=== PATIENT | female | born 1955 | race Caucasian/White ===

== ENCOUNTER 2017-07-29 15:06 | Emergency (ER) | payer MEDICARE, OTHER ==
[~2017-07-29] VITALS: Ht 170.2 cm; Wt 72.6 kg
[~2017-07-29 15:06] MED LIST: ABILIFY5 MG; ADVAIR HFA 230-12 GM INH; AGGRENOX 25 MG-21 EA PO; ASPIR 8181 MG PO; ASPIRIN EC81 MG PO; ASPIRIN325 MG PO; ATENOLOL25 MG PO; ATENOLOL50 MG PO; ATORVASTATIN CA10 MG PO; AUGMENTIN 875-1 EACH PO; BUSPIRONE HCL15 MG PO; CALCITRATE200 MG PO; DEPAKOTE500 MG PO; DEXILANT60 MG PO; DIAZEPAM5 MG PO; DICLOFENAC SODI50 MG PO; DIVALPROEX SOD250 M1 PO; DIVALPROEX SOD500 M1 PO; FISH OIL DR 1,1 EAC1 PO; FISH OIL300 MG PO; GABAPENTIN300 MG PO; GENTAMICIN SUL3.5 GM OS; HYDROCHLOROTHIA25 MG PO; HYDROCODON-ACE1 EA10 PO; IMDUR30 MG PO; LASIX40 MG PO; LATUDA80 MG PO; LEVOTHYROXINE112 MCG; LISINOPRIL10 MG PO; LOPERAMIDE2 MG PO; MELATONIN1 MG PO; MELATONIN5 M2 PO; METFORMIN HCL1000 MG PO; METFORMIN HCL500 M1 PO; METFORMIN HCL500 MG PO; METHOCARBAMOL750 MG PO; MULTIPLE VITAM1 EAC1 PO; NITROFURANTOIN100 M1 PO; NITROGLYCERIN0.4 MG SL; OLANZAPINE10 MG PO; OMEPRAZOLE20 MG PO; OMEPRAZOLE40 MG PO; ONE TOUCH DELI1 EAC1 MISC; OXYCODONE-ACET1 EAC3 PO; PAPAYA ENZYME1 EACH PO; PAROXETINE HCL20 MG PO; POTASSIUM CHLO10 MEQ PO; PREMARIN0.3 MG PO; PROAIR HFA8.5 GM INH; PROGESTERONE200 MG PO; QUETIAPINE FUMA25 MG PO; SAPHRIS10 MG SL; SYNTHROID125 MCG PO; VITAMIN B COMP1 EACH PO; VITAMIN B12-FO1 EACH PO; VITAMIN D250000 UNIT PO; VITAMIN E400 UNI1 PO
[2017-07-29] MEDS ORDERED: FLAGYL500 MG PO (15:16)
== END 2017-07-29 18:24 | disposition home or self-care (01) ==
LOC: ED 15:06
DX: F20.9 Schizophrenia, unspecified (principal); E11.9 Type 2 diabetes mellitus without complications; I10 Essential (primary) hypertension; K21.9 Gastro-esophageal reflux disease without esophagitis; Z79.899 Other long term (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; Z79.84 Long term (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 of 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; Z79.890 Hormone replacement therapy
CPT/HCPCS: 80053; 80176; 81001; 84443; 85025; 99283; G0480

== ENCOUNTER 2019-01-30 16:56 | Emergency (ER) | payer MEDICARE ==
[~2019-01-30] VITALS: Ht 167.6 cm; Wt 99.8 kg
--- OUTSIDE RECORDS SUMMARY | ~2019-01-30 | XMS | Clinical Summary ---
Demographics + + + | Address | [address] | | | [place] [address] | + + + | Home Phone [...] + + + | Author | [facility] [employer] [facility] | + + + | Organization | [facility] [employer] | + + + | Address | Unknown | + + + | Phone | Unavailable | + + + Support + + +---------+ + | Name | Relationship | Address | Phone | + + +---------+ + | Araceli Sibley | ECON | Unknown | | + + +---------+ + Care Team Providers + +------+ + | Care Sweet Pickle Maker Name | Role | Phone | + +------+ + | Mallorie Shaffer PA-C | PP | | + +------+ + Allergies Not on File Current Medications Not on file Active Problems Not [...] on file | | + + + Plan of Treatment +--------+---------+ + + + | Date | Type | Specialty | Care Team | Description | +--------+---------+ + + + | 02/22/ | Office | | Desiree Peterson DO | | | 2019 | Visit | | [address] | | | | | | [place] | | | | | | [address] | | | | | | | | +--------+---------+ + + + Results Not on filefrom Last 3 Months Insurance + +--------+ +------+-------+ + | Payer | Benefi | Subscriber | Type | Phone | Address | | | t Plan | ID | | | | | | / | | | | | | | Group | | | | | + +--------+ +------+-------+ + | MEDICARE | MEDICA | [id number] | | | [address] | | | RE | | | | [place] [address] | | | IP-OP | | | [...] Self | [birth year] | Home: | [address] | | | al/Fam | | 1955 | [phone] | [address] [place] | | | devonte | | | [phone] | + +--------+ +--------+ + +"
--- OUTSIDE RECORDS SUMMARY | ~2019-01-30 | XMS | Clinical Summary ---
Demographics + + + | Address | [address] | | | [place] [address] | + + + | Home Phone [...] Author | [facility] [place] | | | and [place] | [...] | Araceli Sibley | ECON | [address] | | | | | [place] | | | | | [address] | | + + + + + Care Team Providers + +------+ + | Care Electrical And Radio Aircraft Mechanic Name | Role | Phone | [...] | | Activ | | (VITAMIN D-3) 38939 | mouth Once a week. | | [...] tablet by | 90 | 3 | / | | Activ | | (GLUCOPHAGE-XR) 500 | mouth daily (with | tablet | | 20 | | e | | mg 24 hr | breakfast). | | | 15 | | | | tabletIndications: | | | | | | | | Type 2 diabetes | | | | | | | | mellitus, controlled | | | | | | | | (HCC) | | | | | | | + + + +---------+------+------+-------+ | [place]-3 Fatty | Take 1,000 mg by | 60 each | 5 | 02/21 | | Activ | | Acids (FISH [...] Thyroid disease | | + + + Family History + + [...] | 125.7 kg (277 lb 1.6 | 04/30/20151118 PDT | | | oz) | | [...] | MEDTRONIC - | | 04/02/ | [id number] | | 5ccImplanted: Qty: 1 on | | Spine | MEDT | | 2019 | | | 07/02/2014 by Frandy Teresa | | Lumbar | | | | /[id number] | | Ronak DO | | | | | | 6-020 | | | | | | | | / | + +------+--------+ +--------+--------+--------+ | Graft Infuse Bone Kit Xxs - | | N/A: | SOFAMOR | | 01/21/ | [id number] | | [id number]: Qty: 1 on | | Spine | DANEK - DIV | | 2015 | 0 / | | 07/02/2014 by Frandy Teresa | | Lumbar | MEDTRONIC | | | /[id number] | | A DO | | | - SFDK | | | [id number] | + +------+--------+ +--------+--------+--------+ | Imp Spn Spcr Cpstn 8x26mm - | | N/A: | SOFAMOR | | 01/11/ | [id number] | | [id number]: Qty: 1 on | | Spine | DANEK - DIV | | 2 | 6 / | | 07/02/2014 by Frandy Teresa | | Lumbar | MEDTRONIC | | | /[id number] | | A, DO | | | - SFDK | | | 928 | + +------+--------+ +--------+--------+--------+ | Set Scrw Ns G5 Brk Off Ti | | N/A: | SOFAMOR | | | [id number] | | 4.75 - [id number]: | | Spine | DANEK - DIV | | | 0 / / | | Qty: 4 on 07/02/2014 by | | Lumbar | [employer] | | | | | Frandy Teresa DO | | | - SFDK | | | | + +------+--------+ +--------+--------+--------+ | RodImplanted: Qty: 1 on | | N/A: | | | | [id number] | | 07/02/2014 by Frandy Teresa | | Spine | | | | 540 / | | A DO | | Lumbar | | | | / | + +------+--------+ +--------+--------+--------+ | RodImplanted: Qty: 1 on | | N/A: | MEDTROL - | | | [id number] | | 07/02/2014 by Frandy Teresa | | Spine | MDTR | | | 545 / | | A, DO | | Lumbar | | | | / | + +------+--------+ +--------+--------+--------+ | Screw 7.5x50mm Sextant - | | N/A: | MEDTRONIC - | | | [id number] | | [id number]: Qty: 1 on | | Spine | MEDT | | | [id number] | | 07/02/2014 by Frandy Teresa | | Lumbar | | | | / / | | A DO | | | | | | | + +------+--------+ +--------+--------+--------+ | Cannulated ScrewImplanted: | | N/A: | MEDTROL - | | | [id number] | | Qty: 1 on 07/02/2014 by | | Spine | MDTR | | | [id number] | | Frandy Teresa DO | | Lumbar | | | | / / | + +------+--------+ +--------+--------+--------+ | Cannulated ScrewImplanted: | | N/A: | MEDTRONIC - | | | [id number] | | Qty: 1 on 07/02/2014 by | | Spine | MEDT | | | [id number] | | Frandy Teresa DO | | [...] +--------+ +---------+--------+ | MEDICARE | MEDICA | [id number] | 02/22/20 | [phone] | | Medica [...] | Self | [birth year] | | [address] | | | al/Fam | | 1955 | [phone] | [address] [place] | | | [place] | | | 8 (Home) | [phone] | + +--------+ +--------+ + + Advance Directives Patient has advance care planning documents, and code status on file. For more information, please contact:[facility] and [place] [address] + + + + + | Code Status | Date | Date | Comments | | | Activated | Inactivated | | + + + + + | Full Code | 07/02/2014 | 07/05/2014 | | | | 16:37 | 19:39 | | + + + + +
--- OUTSIDE RECORDS SUMMARY | ~2019-01-30 | XMS | Clinical Summary ---
Demographics + + + | Address | [address] | | | [place] [address] | + + + | Home Phone [...] | + + + + + | FLIP ROBIN | ECON | [phone] | | | | | [place] | | | | | [address] | | + + + + + Care Team Providers + +------+ + | Care Cognos Consultant Name | Role | Phone | + +------+ + PP | Unavailable | + +------+ + Source Comments EDWARD [facility] fully [facility] both [facility] and [facility] Allergies Not on File Current Medications Not [...] | + + + Plan of Treatment + + + + + | Health Maintenance | Due Date | Last Done | Comments | + + + + + | Influenza (Flu) | | | | | vaccination (#1) | 8 | | | + + + + + Results Not on filefrom Last 3 Months Insurance + +--------+ +--------+ + + | Payer | Benefi | Subscriber | Type | Phone | Address | | | t Plan | ID | | | | | | / | | | | | | | Group | | | | | + +--------+ +--------+ + + | MEDICARE | MEDICA | xxxxxxxxxx | Medica | [id number] | [address] | | | RE A & | | re | [phone] | [place] [address] | | | B | | | | | + +--------+ +--------+ + + + +--------+ +--------+ + + | Guarantor Name | Accoun | Relation to | Date | Phone | Billing Address | | | t Type | Patient | of | | | | | | | | | | + +--------+ +--------+ + + | BERNARDA ALARCON | Person | Self | [birth year] | Home: | [address] | | | al/Fam | | 5 | [phone] | [address] [place] | | | [place] | | | [phone] | [phone] | + +--------+ +--------+ + +"
--- OUTSIDE RECORDS SUMMARY | ~2019-01-30 | XMS | Clinical Summary ---
Demographics + + + | Address | [address] | | | [place] [address] | + + + | Home Phone | | + + + | Preferred Language | Unknown | + + + | Marital Status | Single | + + + | Faith Affiliation | Unknown | + + + [...] [place] | | | | | [address] | | + + + + + Care Team Providers + +------+ + | Care Applied Behavior Science Specialist Name | Role | Phone | + +------+ + PP | Unavailable | + +------+ + Source Comments EDWARD is fully live on both [facility] and [facility] InPatient.[facility] Allergies Not on File Current Medications [...] | MEDICA | xxxxxxxxxx | Medica | [id number] | [address] | | | RE A & | | re | [phone] | [place] [address] | | | B | | | [...] | [birth year] | Home: | [address] | | | al/Fam | | 5 | [phone] | [address] [place] | | | [place] | | | [phone] | [phone] | + +--------+ +--------+ + +"
--- OUTSIDE RECORDS SUMMARY | ~2019-01-30 | XMS | Clinical Summary ---
Demographics + + + | Address | [address] [facility] [address] [facility] [address] | | | [place] [address] | + + + | Home Phone [...] | Author | [facility] | | | and [place] | [...] [place] | | | | | [address] | | + + + + + Care Team Providers + +------+ + | Care Wind Development Director Name | Role | Phone | [...] | | Activ | | (VITAMIN D-3) 00690 | mouth Once a week. | | [...] | | + + + +---------+------+------+-------+ | [place]-3 Fatty | Take 1,000 mg by [...] | MEDTRONIC - | | 04/02/ | [id number] | | 5ccImplanted: Qty: 1 on | [...] N/A: | SOFAMOR | | 01/21/ | [id number] | | [id number]: Qty: 1 on | | Spine | [...] N/A: | SOFAMOR | | 01/11/ | [id number] | | [id number]: Qty: 1 on | | Spine | [...] | N/A: | SOFAMOR | | | [id number] | | 4.75 - [id number]: | | Spine | DANEK - DIV | | | 0 / / | | Qty: 4 on 07/02/2014 by | | Lumbar | [employer]TRONIC | | | | | Frandy Teresa DO | | | - SFDK | | | | + +------+--------+ +--------+--------+--------+ | RodImplanted: Qty: 1 on | | N/A: | | | | [id number] | | 07/02/2014 by Frandy Teresa | | Spine | | | | 540 / | | A DO | | Lumbar | | | | / | + +------+--------+ +--------+--------+--------+ | RodImplanted: Qty: 1 on | | N/A: | MEDTROL - | | | [id number] | | 07/02/2014 by Frandy Teresa | | Spine | MDTR | | | 545 / | | A, DO | | Lumbar | | | | / | + +------+--------+ +--------+--------+--------+ | Screw 7.5x50mm Sextant - | | N/A: | MEDTRONIC - | | | [id number] | | [id number]: Qty: 1 on | | Spine | MEDT | | | [id number] | | 07/02/2014 by Frandy Teresa | | Lumbar | | | | / / | | A DO | | | | | | | + +------+--------+ +--------+--------+--------+ | Cannulated ScrewImplanted: | | N/A: | MEDTROL - | | | [id number] | | Qty: 1 on 07/02/2014 by | | Spine | MDTR | | | [id number] | | Frandy Teresa DO | | Lumbar | | | | / / | + +------+--------+ +--------+--------+--------+ | Cannulated ScrewImplanted: | | N/A: | MEDTRONIC - | | | [id number] | | Qty: 1 on 07/02/2014 by | | Spine | MEDT | | | [id number] | | Frandy Teresa DO | | [...] +--------+ +---------+--------+ | MEDICARE | MEDICA | [id number] | 02/22/20 | [phone] | | Medica [...] | Self | [birth year] | | [address] | | | al/Fam | | 1955 | [phone] | [address] [place] | | | [place] | | | 8 (Home) | [address] | + +--------+ +--------+ + + Advance Directives Patient has advance care planning documents, and code status on file. For more information, please contact:[facility] and [place] [address] + + + + + | Code Status | Date | Date | Comments | | | Activated | Inactivated | | + + + + + | Full Code | 07/02/2014 | 07/05/2014 | | | | 16:37 | 19:39 | | + + + + +
--- OUTSIDE RECORDS SUMMARY | ~2019-01-30 | XMS | Clinical Summary ---
Demographics + + + | Address | [address] | | | [place] [address] | + + + | Home Phone [...] + + + | Author | [facility] [email or web address] [facility] | + + + | Organization | [facility] [email or web address] | + + + | Address | Unknown | + + + | Phone | Unavailable | + + + Support + + +---------+ + | Name | Relationship | Address | Phone | + + +---------+ + | Araceli Sibley | ECON | Unknown | | + + +---------+ + Care Team Providers + +------+ + | Care Change Advisor Name | Role | Phone | [...] [place] | | | | | | [address] | | | | | | | [...] +------+-------+ + | MEDICARE | MEDICA | [id number] | | | [address] | | | RE | | | | [place] [address] | | | IP-OP | | | [...] Self | [birth year] | Home: | [address] | | | al/Fam | | 1955 | [phone] | [address] [place] | | | [place] | | | [phone] | [phone] | + +--------+ +--------+ + +"
[~2019-01-30 16:56] MED LIST changes: +ABILIFY20 MG PO; +ABILIFY5 MG PO; +CLONIDINE HCL0.1 MG PO; +FLAGYL500 MG PO; +GLUCOPHAGE1000 MG PO; +GLUCOPHAGE500 MG PO; +MIRTAZAPINE15 MG PO; +SONATA; +SYNTHROID100 MCG PO; +VISTARIL50 MG PO; +ZALEPLON10 MG PO
--- OUTSIDE RECORDS SUMMARY | 2019-01-30 16:58 | XMS ---
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 Security Medical Transcriber Events No recent Security Events currently on file CRITERIA MET - [facility] - Has Care Guidelines - PDMP - [facility] - 2 Visits in 30 Days CARE PROVIDERS VERONICA STOO [facility] Current PHONE: Unknown [facility] Mental [facility] Provider Current PHONE: [phone] Guidelines Source: [facility] [place] Guidelines Date: 07/06/2018 Care Coordination: Currently engaged in mental health services with [facility].\T\nbsp; Please contact [facility] with mental health concerns. [phone] Care History Medical/Surgical 01/12/2019 [facility] - CHW RECEIVED ED CASE MANAGEMENT CONSULT- HELP PATIENT WITH PCP SET UP. - PATIENT HAS AN ED FOLLOW UP VISIT WITH DR WHEAT ON 01/17/19. - CHW SPOKE WITH CARMEN AT THE CLINIC -PATIENT NEEDS TO SIGN AN LORRI TO RELEASE RECORDS FROM [employer] WITH CURRENT MEDICATIONS LISTED FOR DR WHEAT TO REVIEW IN ORDER TO SET UP AN ESTABLISHING CARE APT. - A TE WAS SENT TO ESCOB[facility] AT [facility] TO HELP PATIENT WITH LORRI PROCESS AND [facility] RECORDS[facility] VISIT COUNT (12 MO.) 2 [facility] TOTAL 2 NOTE: Visits indicate total known visits. ED/UCC VISIT TRACKING (12 MO.) 01/30/2019 16:57 [facility] [place] TYPE: Emergency COMPLAINT: - CHEST PAIN 01/09/2019 12:[address] 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 - Other residential (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 - Suicidal ideations - Schizoaffective disorder, unspecified - Type 2 diabetes mellitus without complications - Allergy status to sulfonamides status - Allergy status to other drugs, medicaments and biological substances status - Major depressive disorder, single episode, unspecified - Essential (primary) hypertension - Personal history of transient ischemic attack (TIA), and cerebral infarction without residual deficits - Allergy status to narcotic agent status INPATIENT VISIT TRACKING (12 MO.) No inpatient visits to display in this time frame [email or web address]
[2019-01-30] MEDS ORDERED: DEPAKOTE ER500 MG PO (17:22)
[2019-01-30] MEDS ORDERED: PAXIL20 MG PO (17:22)
--- NOTE | 2019-02-01 07:55 | EKG ---
[facility] [address] [facility] [place] [address] Signed Normal sinus rhythm Voltage criteria for left ventricular hypertrophy Possible Lateral infarct , age undetermined Abnormal ECG When compared with ECG of 05-APR-2017 11:20, Borderline criteria for Lateral infarct are now present Confirmed by PHIL SAMAYOA MD ([id number]) on 02/01/2019 7:55:00 AM Electronically Signed By: PHIL SAMAYOA MD 02/01/19 0755 PATIENT NAME: BERNARDA ALARCON AIDE Electrocardiogram DATE OF : 55 PHYSICIAN: PHIL SAMAYOA MD REPORT #: [id number] REPORT IS CONFIDENTIAL AND NOT TO BE RELEASED WITHOUT AUTHORIZATION
== END 2019-01-30 19:35 | disposition home or self-care (01) ==
LOC: ED 16:56
DX: R07.89 Other chest pain (principal); I10 Essential (primary) hypertension; K21.9 Gastro-esophageal reflux disease without esophagitis; Z86.73 Personal history of transient ischemic attack (TIA), and cerebral infarction without residual deficits; Z88.2 Allergy status to sulfonamides; Z88.8 Allergy status to other drugs, medicaments and biological substances; Z88.1 Allergy status to other antibiotic agents; Z79.899 Other long term (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; Z79.84 Long term (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 of 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
CPT/HCPCS: 71045; 80053; 84484; 85025; 93005; 93010; 99285-25

== ENCOUNTER 2019-03-07 10:34 | Emergency (ER) | payer MEDICARE ==
[~2019-03-07] VITALS: Ht 167.6 cm; Wt 99.8 kg
--- NOTE | ~2019-03-07 | STRESS ---
[facility] [address] [address] [facility] [address] [place], [place] [address] Draft DATE OF STUDY: 03/07/2019 STUDY: Lexiscan EKG stress test. DATE OF INTERPRETATION: 03/08/2019. HISTORY: History of anemia, CVA, heart murmur, hyperlipidemia, hypothyroidism, obstructive sleep apnea, and history of TX. RESTING DATA: Resting EKG demonstrates normal sinus rhythm at 85 beats per minute and is normal. Resting blood pressure is 133/66. STRESS DATA: The patient was stressed according to Lexiscan protocol for 0.35 minutes achieving a workload of 1.00 METs. Her resting heart rate was 85 beats per minutes, which latisha to a maximum heart rate of 96 beats per minute. This value represented 61% of the patient's maximum age predicted heart rate. Her resting blood pressure was 133/66, which latisha to a maximum blood pressure 140/75. The exercise was stopped due to Lexiscan protocol. Stress EKG portion was nondiagnostic due to suboptimal heart rate. There were PVCs noted during stage 1, which resolved during recovery. IMPRESSION: 1. This is a nondiagnostic Lexiscan EKG stress. 2. The patient did report 3/10 substernal chest pain during the infusion. 3. EKG portion was nondiagnostic due to suboptimal heart rate, there was noted to be frequent PVCs during state 1 of the infusion, which resolved during recovery. 4. See separate nuclear imaging component. DO ANJU Quiroz/ROSE /[id number] PATIENT NAME: BERNARDA ALARCON Stress test DATE OF : 55 PHYSICIAN: REPORT #: [id number] REPORT IS CONFIDENTIAL AND NOT TO BE RELEASED WITHOUT AUTHORIZATION
--- OUTSIDE RECORDS SUMMARY | ~2019-03-07 | XMS | Clinical Summary ---
Demographics + + + | Address | [address] | | | [place] [address] | + + + | Home Phone | | + + + | Preferred Language | Unknown | + + + | Marital Status | Single | + + + | Buddhism Affiliation | Unknown | + + + | Race | White | + + + | Ethnic Group | Not or | + + + Author + + + | Author | [facility] | + + + | Organization | [facility] | + + + | Address | Unknown | + + + | Phone | Unavailable | + + + Support + + + + + | Name | Relationship | Address | Phone | + + + + + | Kelsy Bautista | ECON | [phone] | | | | | [place] | | | | | [address] | | + + + + + Care Team Providers + +------+ + | Care Sole Molding Machine Operator Name | Role | Phone | + +------+ + PP | Unavailable | + +------+ + Source Comments EDWARD is fully live on both [facility] Ambulatory and [facility] InPatient.[facility] Allergies Not on File Medications Not on file Active Problems Not on file Social History + +-------+ +--------+------+ | Tobacco [...] recent travel history available. | + + Plan of Treatment + + + + + | Health Maintenance | Due Date | Last Done | Comments | + + + + + | Influenza (Flu) | | | | | vaccination (Season | 9 | | | | Ended) | | | | + + + + + Results Not on filefrom Last 3 Months Insurance + +--------+ +--------+ + +--------+ | Payer | Benefi | Subscriber | Effect | Phone | Address | Type | | | t Plan | ID | chris | | | | | | / | | Dates | | | | | | Group | | | | | | + +--------+ +--------+ + +--------+ | MEDICARE | MEDICA | xxxxxxxxxx | 02/22/20 | [phone] | [address] | Medica | | | RE A & | | 15-Pre | 1 | [phone] | re | | | B | | sent | | [place] | | | | | | | | [phone] | | + +--------+ +--------+ + +--------+ + +--------+ +--------+ + + | Guarantor Name | Accoun | Relation to | Date | Phone | Billing Address | | | t Type | Patient | of | | | | | | | | | | + +--------+ +--------+ + + | CINDY ARNDT | Person | Self | [birth year] | [address] | | | al/Fam | | 1955 | [phone] | [address] [place] | | | [place] | | | 5 (Home) | [address] | + +--------+ +--------+ + +"
--- OUTSIDE RECORDS SUMMARY | ~2019-03-07 | XMS | Encounter Summary ---
Demographics + + + | Address | [address] | | | [place] [address] | + + + | Home Phone | | + + + | Preferred Language | Unknown | + + + | Marital Status | Single | + + + | Christianity Affiliation | Unknown | + + + | Race | Unknown | + + + | Ethnic Group | Unknown | + + + Author + + + | Author | [facility] [facility] | + + + | Organization | [facility] | + + + | Address | Unknown | + + + | Phone | Unavailable | + + + Support + + +---------+ + | Name | Relationship | Address | Phone | + + +---------+ + | Araceli Sibley | ECON | Unknown | | + + +---------+ + Care Team Providers + +------+ + | Care Air Conditioning Mechanic Industrial Name | Role | Phone | + +------+ + | Jose Ag MD | PCP | | + +------+ + Encounter Details +--------+ + + + + | Date | Type | Department | Care Team | Description | +--------+ + + + + | 03/07/ | Telephone | [facility] | Julia, | | | 2018 | | Arun Cayey | DMITRIY Kennedy | | | | | [address] | | | | | | [place] | | | | | | [address] | | | | | | [phone] | | | +--------+ + + + [...] on file | | + + + as of this encounter Plan of Treatment +--------+---------+ + + + | Date | Type | Specialty | Care Team | Description | +--------+---------+ + + + | 05/10/ | Office | Cardiology | Desiree Peterson DO | | | 2019 | Visit | | [address] | | | | | | [place] | | | | | | [address] | | | | | | | | +--------+---------+ + + + as of this encounter Visit Diagnoses Not on filein this encounter"
--- OUTSIDE RECORDS SUMMARY | ~2019-03-07 | XMS | Encounter Summary ---
Demographics + + + | Address | [address] | | | [place] [address] | + + + | Home Phone | | + + + | Preferred Language | Unknown | + + + | Marital Status | Single | + + + | Jainism Affiliation | Unknown | + + + | Race | Unknown | + + + | Ethnic Group | Unknown | + + + Author + + + | Author | [facility] | + + + | Organization | [facility] | + + + | Address | Unknown | + + + | Phone | Unavailable | + + + Support + + +---------+ + | Name | Relationship | Address | Phone | + + +---------+ + | Araceli Sibley | ECON | Unknown | | + + +---------+ + Care Team Providers + +------+ + | Care Stunt Driver Name | Role | Phone | + +------+ + | Jose Ag MD | PCP | | + +------+ + Reason for Visit +--------+ + | Reason | Comments | +--------+ + | Other | [facility] Stress Test - 03-05-19 | +--------+ + Encounter Details +--------+ + + + + | Date | Type | Department | Care Team | Description | +--------+ + + + + | 03/06/ | Documentati | [facility] | Ashley Chávez | Other ([facility] | | 2019 | on Only | Cardiology [facility] | TONG Abad | Stress Test - | | | | [address] | | 03-05-19 ) | | | | [place] | | | | | | [address] | | | | | | [phone] | | | +--------+ + + + [...] | | | | | [place] | | | | | | [address] | | | | | | | | +--------+---------+ + + + as of this encounter Visit Diagnoses Not on filein this encounter"
--- OUTSIDE RECORDS SUMMARY | ~2019-03-07 | XMS | Encounter Summary ---
Demographics + + + | Address | [address] | | | [place] [address] | + + + | Home Phone | | + + + | Preferred Language | Unknown | + + + | Marital Status | Single | + + + | Protestant Affiliation | Unknown | + + + | Race | Unknown | + + + | Ethnic Group | Unknown | + + + Author + + + | Author | [facility] [employer] [facility] | + + + | Organization | [facility] [employer] | + + + | Address | Unknown | + + + | Phone | Unavailable | + + + Support + + +---------+ + | Name | Relationship | Address | Phone | + + +---------+ + | Araceli Sibley | ECON | Unknown | | + + +---------+ + Care Team Providers + +------+ + | Care Steel Checker Name | Role | Phone | + +------+ + | Jose Ag MD | PCP | | + +------+ + Encounter Details +--------+ + + + + | Date | Type | Department | Care Team | Description | +--------+ + + + + | 03/07/ | Telephone | [facility] Dorman | Julia, | | | 2018 | | Arun Kings | DMITRIY Kennedy | | | | | [address] | | | | | | [place] | | | | | | [address] | | | | | | [phone] | | | +--------+ + + + [...] [place] | | | | | | [address] | | | | | | | | +--------+---------+ + + + as of this encounter Visit Diagnoses Not on filein this encounter"
--- OUTSIDE RECORDS SUMMARY | ~2019-03-07 | XMS | Clinical Summary ---
Demographics + + + | Address | [address] | | | [place] [address] | + + + | Home Phone [...] | Araceli Sibley | ECON | [address] | | | | | [place] | | | | | [address] | | + + + + + Care Team Providers + +------+ + | Care Automobile Body Repair Supervisor Name | Role | Phone | + +------+ + | Adriano Patrick MD | PP | | + +------+ + Allergies + + + + + + | Active Allergy | Reactions | Severity | Noted | Comments | | | | | Date | | + + + + + + | Demerol | Nausea And Vomiting | | | | + + + + + + | Duloxetine | | | 03/31/20 | Muscle weakness, | | | | | 12 | profuse sweating | + + + + + + | Erythromycin | Nausea And Vomiting | Medium | 03/31/20 | | | | | | 12 | | + + + + + + | Fluoxetine | Other (See Comments) | Medium | | "mind racing" | + + + + + + | Haloperidol | Other (See Comments) | Medium | | "mind racing" | + + + + + + | Prochlorperazine | Other (See Comments) | Medium | | Skin | | Maleate | | | | crawling/agitation | + + + + + + | Promethazine Hcl | Other (See Comments) | Medium | | Skin | | | | | | crawling/agitation | + + + + + + | Sulfa Antibiotics | Rash | Low | | | + + + + [...] | | + + + +---------+------+------+-------+ | Melatonin 5 MG | Place 5 mg under the | | 0 | 06/0 | | Activ | | SUBL | tongue nightly. | | | 6/20 | | e | | | | | | 12 | | | + + + +---------+------+------+-------+ | fluocinonide | Apply to affected | | 0 | 06/0 | | Activ | | (LIDEX) 0.05 % | area twice daily as | | | 6/20 | | e | | ointment | needed | | | 12 | | | + + + +---------+------+------+-------+ | PARoxetine (PAXIL) | Take 20 mg by mouth | | 0 | 06/0 | | Activ | | 20 mg tablet | Daily. | | | 6/20 | | e | | | | | | 12 | | | + + + +---------+------+------+-------+ | UNCODED | Diagnosis: | 1 | 0 | 05/0 | | Activ | | MEDICATIONIndication | Obstructive Sleep | Device | | 20 | | e | | s: Obstructive sleep | ApneaICD-9: | | | 13 | | | | apnea (adult) | 327.23Length of | | | | | | | (pediatric) | Need: 99 Months | | | | | | + + + +---------+------+------+-------+ | Magnesium 250 MG | Take 2 tablets by | | 0 | | | Activ | | TABS | mouth nightly. | | | | | e | + + + +---------+------+------+-------+ | Multiple | Take 1 tablet by | | 0 | | | Activ | | Vitamins-Minerals | mouth Daily. | | | | | e | | (CENTRUM SILVER PO) | | | | | | | + + + +---------+------+------+-------+ | tocopherol | Take 400 Units by | | 0 | | | Activ | | (VITAMIN E) 400 | mouth 2 times daily. | | | | | e | | units capsule | | | | | | | + + + +---------+------+------+-------+ | | Take 1-2 tablets by | 60 | 0 | 12/0 | | Activ | | HYDROcodone-acetamin | mouth every 4 hours | tablet | | 4/20 | | e | | ophen (NORCO) 10-325 | as needed for Pain. | | | 14 | | | | mg per tablet | | | | | | | + + + +---------+------+------+-------+ | CALCIUM CITRATE PO | Take 500 mg by mouth | | 0 | | | Activ | | | Daily. | | | | | e | + + + +---------+------+------+-------+ | Cholecalciferol | Take 50,000 Units by | | 0 | | | Activ | | (VITAMIN D-3) 81626 | mouth Once a week. | | | | | e | | units CAPS | | | | | | | + + + +---------+------+------+-------+ | levothyroxine | Take 112 mcg by | | 0 | | | Activ | | (SYNTHROID, | mouth every morning | | | | | e | | LEVOTHROID) 112 mcg | (before breakfast). | | | | | | | tablet | | | | | | | + + + +---------+------+------+-------+ | OLANZapine | Take 10 mg by mouth | | 0 | | | Activ | | (ZYPREXA) 10 MG | nightly. | | | | | e | | tablet | | | | | | | + + + +---------+------+------+-------+ | lisinopril | Take 1 tablet by | 90 | 3 | 05/1 | | Activ | | (PRINIVIL, ZESTRIL) | mouth Daily. | tablet | | 7/20 | | e | | 10 mg | | | | 15 | | | | tabletIndications: | | | | | | | | Essential | | | | | | | | hypertension | | | | | | | + + + +---------+------+------+-------+ | metFORMIN | Take 1 tablet by | 90 | 3 | 05/1 | | Activ | | (GLUCOPHAGE-XR) 500 [...] | | + + + +---------+------+------+-------+ | [place]-3 Fatty | Take 1,000 mg by | 60 each | 5 | 05/1 | | Activ | | Acids (FISH OIL | mouth 2 times daily. | | | 7/20 | | e | | CONCENTRATE) 1000 MG | | | | 15 | | | | CAPS | | | | | | | + + + +---------+------+------+-------+ | Cyanocobalamin | Take by mouth. | | 0 | | | Activ | | (VITAMIN B-12 PO) | | | | | | e | + + + +---------+------+------+-------+ | divalproex | Take 250 mg by | | 0 | | | Activ | | (DEPAKOTE) 250 mg EC | mouth. | | | | | e | | tablet | | | | | | | + + + +---------+------+------+-------+ | B Complex Vitamins | Take by mouth. | | 0 | | | Activ | | (VITAMIN B COMPLEX | | | | | | e | | PO) | | | | | | | + + + +---------+------+------+-------+ | Calcium Carbonate | Take by mouth. | | 0 | | | Activ | | Antacid (TUMS E-X | | | | | | e | | 750 PO) | | | | | | | + + + +---------+------+------+-------+ | Digestive Enzymes | Take by mouth. | | 0 | | | Activ | | (PAPAYA ENZYME) CHEW | | | | | | e | + + + +---------+------+------+-------+ | atenolol | Take 25 mg by mouth | | 0 | | | Activ | | (TENORMIN) 25 mg | Daily. | | | | | e | | tablet | | | | | | | + + + +---------+------+------+-------+ | naproxen sodium | Take 220 mg by mouth | | 0 | | | Activ | | (ALEVE) 220 MG | every 12 hours. | | | | | e | | tablet | | | | | | | + + + +---------+------+------+-------+ | Triamcinolone | by Nasal route. | | 0 | | | Activ | | Acetonide (NASACORT | | | | | | e | | AQ NA) | | | | | | | + + + +---------+------+------+-------+ | gabapentin | Take 300 mg by mouth | | 0 | | | Activ | | (NEURONTIN) 300 mg | 3 times daily. | | | | | e | | capsule | | | | | | | + + + +---------+------+------+-------+ | dexlansoprazole | Take 60 mg by mouth | | 0 | | | Activ | | (DEXILANT) [address] | Daily. | | | | | e | | capsule | | | | | | | + + + +---------+------+------+-------+ | | Take 1 tablet by | | 0 | | | Activ | | oxyCODONE-acetaminop | mouth every 6 hours | | | | | e | | hen (PERCOCET) | as needed for Pain. | | | | | | | 10-325 mg per tablet | | | | | | | + + + +---------+------+------+-------+ | asenapine | Place 10 mg under | | 0 | | | Activ | | (SAPHRIS) 10 mg SL | the tongue Daily. | | | | | e | | tablet | | | | | | | + + + +---------+------+------+-------+ | furosemide (LASIX) | Take 40 mg by mouth | | 0 | | | Activ | | 40 mg tablet | Daily. | | | | | e | + + + +---------+------+------+-------+ | | Take 25 mg by mouth | | 0 | | | Activ | | hydrochlorothiazide | Daily. | | | | | e | | 25 mg tablet | | | | | | | + + + +---------+------+------+-------+ | | Take 1 capsule by | | 0 | | | Activ | | aspirin-dipyridamole | mouth 2 times daily. | | | | | e | | (AGGRENOX) 25-200 | | | | | | | | mg per 12 hr capsule | | | | | | | + + + +---------+------+------+-------+ Active Problems + + + | Problem | Noted Date | + + + | Schizoaffective disorder, bipolar type | 03/09/2015 | + + + | ROGERS on CPAP | 03/09/2015 | + + + | Obesity, Class [...] + + | 02/01/ | Telephone | | Frandy Teresa, | Imaging Only | | 2018 | | | DO | | +--------+ + + + + from Last 3 Months Family History + + +------+ + | [...] + + + | Blood Pressure | 135/72 | 07/06/20151706 PDT | + + + + | Pulse | 108 | 07/06/20151706 PDT | + + + + | Temperature | 37.1 C (98.8 F) | 03/06/2015905 PDT | + + + + | Respiratory Rate | 20 | 07/06/20151706 PDT | + + + + | Oxygen Saturation | 92% | 07/06/20151706 PDT | + + + + | Inhaled Oxygen | - | - | | Concentration | | | + + + + | Weight | 125.7 kg (277 lb 1.6 | 04/30/2015 1119 PDT | | | oz) | | + + + + | Height | 172.7 cm (5' 8") | 03/06/2015905 PDT | + + + + | Body Mass Index | 42.13 | 03/06/2015905 PDT | + + + + Plan [...] | Vaccine: | | | | | Pneumococcal 19-64 | 4 | | | | (PPSV23 only) Medium | | | | | Risk (1 of 1 - | | | | | PPSV23) | | | | + + + + + | Breast Cancer | | | | | Screening (Ages | 5 | | | | 50-74) | | | | + + + [...] | MEDTRONIC - | | 04/02/ | [id number] | | 5ccImplanted: Qty: 1 on | | Spine | MEDT | | 2019 | | | 07/02/2014 by Frandy Teresa | | Lumbar | | | | /[id number] | | A, DO | | | | | | 6-020 | | | | | | | | / | + +------+--------+ +--------+--------+--------+ | Graft Infuse Bone Kit Xxs - | | N/A: | SOFAMOR | | 01/21/ | [id number] | | [id number]: Qty: 1 on | | Spine | DANEK - DIV | | 2015 | 0 / | | 07/02/2014 by Frandy Teresa | | Lumbar | MEDTRONIC | | | /[id number] | | A, DO | | | - SFDK | | | [id number] | + +------+--------+ +--------+--------+--------+ | Imp Spn Spcr Cpstn 8x26mm - | | N/A: | SOFAMOR | | 01/11/ | [id number] | | [id number]: Qty: 1 on | | Spine | DANEK - DIV | | 2022 | 6 / | | 07/02/2014 by Frandy Teresa | | Lumbar | MEDTRONIC | | | /[id number] | | A DO | | | - SFDK | | | 928 | + +------+--------+ +--------+--------+--------+ | Set Scrw Ns G5 Brk Off Ti | | N/A: | SOFAMOR | | | [id number] | | 4.75 - [id number]: | | Spine | DANEK - DIV | | | 0 / / | | Qty: 4 on 07/02/2014 by | | Lumbar | [employer]TRONIC | | | | | Frandy Teresa DO | | | - SFDK | | | | + +------+--------+ +--------+--------+--------+ | RodImplanted: Qty: 1 on | | N/A: | | | | [id number] | | 07/02/2014 by Frandy Teresa | | Spine | | | | 540 / | | A DO | | Lumbar | | | | / | + +------+--------+ +--------+--------+--------+ | RodImplanted: Qty: 1 on | | N/A: | MEDTROL - | | | [id number] | | 07/02/2014 by Frandy Teresa | | Spine | MDTR | | | 545 / | | DO Ronak | | Lumbar | | | | / | + +------+--------+ +--------+--------+--------+ | Screw 7.5x50mm Sextant - | | N/A: | MEDTRONIC - | | | [id number] | | [id number]: Qty: 1 on | | Spine | MEDT | | | [id number] | | 07/02/2014 by Frandy Teresa | | Lumbar | | | | / / | | DO Ronak | | | | | | | + +------+--------+ +--------+--------+--------+ | Cannulated ScrewImplanted: | | N/A: | MEDTROL - | | | [id number] | | Qty: 1 on 07/02/2014 by | | Spine | MDTR | | | [id number] | | Frandy Teresa DO | | Lumbar | | | | / / | + +------+--------+ +--------+--------+--------+ | Cannulated ScrewImplanted: | | N/A: | MEDTRONIC - | | | [id number] | | Qty: 1 on 07/02/2014 by | | Spine | MEDT | | | [id number] | | Frandy Teresa DO | | Lumbar | | | | / / | + +------+--------+ +--------+--------+--------+ Results Not on [...] +--------+ +---------+--------+ | MEDICARE | MEDICA | [id number] | 02/22/20 | [phone] | | Medica [...] | Self | [birth year] | [address] | | | al/Fam | | 1955 | [phone] | [address] [place] | | | [place] | | | 8 (Home) | [address] | + +--------+ +--------+ + + Advance Directives Patient has advance care planning documents, and code status on file. For more information, please contact:[facility] [place] [address] + + + + + | Code Status | Date | Date | Comments | | | Activated | Inactivated | | + + + + + | Full Code | 07/02/2014 | 07/05/2014 | | | | 16:37 | 19:39 | | + + + + +
--- OUTSIDE RECORDS SUMMARY | ~2019-03-07 | XMS | Encounter Summary ---
Demographics + + + | Address | [address] | | | [place] [address] | + + + | Home Phone | | + + + | Preferred Language | Unknown | + + + | Marital Status | Single | + + + | Christian Affiliation | Unknown | + + + [...] [place] | | | | | [address] | | + + + + + Care Team Providers + +------+ + | Care American Studies Professor Name | Role | Phone [...] | Transcriptions | + + | Interface, Neon Tube Bender In - 10/24/2006 3:09 AM PST | | [facility] | | Road [place], [place] [address] [place] | | [facility] HospitalOPERATION RECORDMed Rec No.: [id number] Date: | [...]
--- OUTSIDE RECORDS SUMMARY | ~2019-03-07 | XMS | Encounter Summary ---
Demographics + + + | Address | [address] | | | [place] [address] | + + + | Home Phone | | + + + | Preferred Language | Unknown | + + + | Marital Status | Single | + + + | Adventism Affiliation | Unknown | + + + | Race | Unknown | + + + | Ethnic Group | Unknown | + + + Author + + + | Author | [facility] [employer] | + + + | Organization | [facility] [employer] | + + + | Address | Unknown | + + + | Phone | Unavailable | + + + Support + + +---------+ + | Name | Relationship | Address | Phone | + + +---------+ + | Araceli Sibley | ECON | Unknown | | + + +---------+ + Care Team Providers + +------+ + | Care Supervisor Cigar Processing Name | Role | Phone | + [...] [place] | | | | | | [address] | | | | | | [phone] | | | +--------+ + + + [...] | | | | | [place] | | | | | | [address] | | | | | | | | +--------+---------+ + + + as of this encounter Visit Diagnoses Not on filein this encounter"
--- OUTSIDE RECORDS SUMMARY | ~2019-03-07 | XMS | Clinical Summary ---
Demographics + + + | Address | [address] | | | [place] [address] | + + + | Home Phone [...] [place] | | | | | [address] | | + + + + + Care Team Providers + +------+ + | Care Desktop Architect Name | Role | Phone | + +------+ + PP | Unavailable | + +------+ + Source Comments EDWARD is fully live on both [facility] and [facility] InPatient.[facility] Allergies Not on File Medications Not [...] | | | | | | | [address] | | + +--------+ +--------+ + +--------+ + +--------+ +--------+ + + | Guarantor Name | Accoun | Relation to | Date | Phone | Billing Address | | | t Type | Patient | of | | | | | | | | | | + +--------+ +--------+ + + | CINDY ARNDT | Person | Self [birth year] [address] | | | al/Fam | | 1955 | [phone] | [address] [place] | | | [place] | | | [address] (Home) | [address] | + +--------+ +--------+ + +"
--- OUTSIDE RECORDS SUMMARY | ~2019-03-07 | XMS | Encounter Summary ---
Demographics + + + | Address | [address] | | | [place] [address] | + + + | Home Phone [...] + + + | Author | [facility] [employer] | + + + | Organization | [facility] [employer] [facility] | + + + | Address | Unknown | + + + | Phone | Unavailable | + + + Support + + +---------+ + | Name | Relationship | Address | Phone | + + +---------+ + | Araceli Sibley | ECON | Unknown | | + + +---------+ + Care Team Providers + +------+ + | Care Supervisor Scrap Preparation Name | Role | Phone | + +------+ + | Mallorie Shaffer PA-C | PCP | | + +------+ + Reason for Visit +--------+ + | Reason | Comments | +--------+ + | Other | [facility] | +--------+ + Encounter Details +--------+ + + + + | Date | Type | Department | Care Team | Description | +--------+ + + + + | 02/09/ | Documentati | SOILA Dorman | Cindy Nicholas, | Other ([facility] | | 2019 | on Only | Cardiology [place] | [facility] | [facility]) | | | | [address] | | | | | | [place] | | | | | | [address] | | | | | | [phone] | | | +--------+ + + + [...] [place] | | | | | | [address] | | | | | | | | +--------+---------+ + + + as of this encounter Visit Diagnoses Not on filein this encounter"
--- OUTSIDE RECORDS SUMMARY | ~2019-03-07 | XMS | Clinical Summary ---
Demographics + + + | Address | [address] | | | [place] [address] | + + + | Home Phone [...] Araceli Sibley | ECON | [address] | | | | | [place] | | | | | [address] | | + + + + + Care Team Providers + +------+ + | Care Oil Painter Name | Role | Phone | [...] | | Activ | | (VITAMIN D-3) 83381 | mouth Once a week. | | [...] | | + + + +---------+------+------+-------+ | [place]-3 Fatty | Take 1,000 mg by | [...] | MEDTRONIC - | | 04/02/ | [id number] | | 5ccImplanted: Qty: 1 on | | Spine | MEDT | | 2019 | | | 07/02/2014 by Frandy Tersea | | Lumbar | | | | /[id number] | | A, DO | | | | | | 6-020 | | | | | | | | / | + +------+--------+ +--------+--------+--------+ | Graft Infuse Bone Kit Xxs - | | N/A: | SOFAMOR | | 01/21/ | [id number] | | [id number]: Qty: 1 on | | Spine | [...] N/A: | SOFAMOR | | 01/11/ | [id number] | | [id number]: Qty: 1 on | | Spine | [...] | N/A: | SOFAMOR | | | [id number] | | 4.75 - [id number]: | | Spine | DANEK - DIV | | | 0 / / | | Qty: 4 on 07/02/2014 by | | Lumbar | [employer] | | | | | Frandy Teresa DO | | | - SFDK | | | | + +------+--------+ +--------+--------+--------+ | RodImplanted: Qty: 1 on | | N/A: | | | | [id number] | | 07/02/2014 by Frandy Teresa | | Spine | | | | 540 / | | A DO | | Lumbar | | | | / | + +------+--------+ +--------+--------+--------+ | RodImplanted: Qty: 1 on | | N/A: | MEDTROL - | | | [id number] | | 07/02/2014 by Frandy Teresa | | Spine | MDTR | | | 545 / | | DO Ronak | | Lumbar | | | | / | + +------+--------+ +--------+--------+--------+ | Screw 7.5x50mm Sextant - | | N/A: | [employer]TR[employer]IC - | | | [id number] | | [id number]: Qty: 1 on | | Spine | MEDT | | | [id number] | | 07/02/2014 by Frandy Teresa | | Lumbar | | | | / / | | DO Ronak | | | | | | | + +------+--------+ +--------+--------+--------+ | Cannulated ScrewImplanted: | | N/A: | MEDTROL - | | | [id number] | | Qty: 1 on 07/02/2014 by | | Spine | MDTR | | | [id number] | | Frandy Teresa DO | | Lumbar | | | | / / | + +------+--------+ +--------+--------+--------+ | Cannulated ScrewImplanted: | | N/A: | MED[employer]IC - | | | [id number] | | Qty: 1 on 07/02/2014 by | | Spine | MEDT | | | [id number] | | Frandy Teresa DO | | [...] +--------+ +---------+--------+ | MEDICARE | MEDICA | [id number] | 02/22/20 | [phone] | | Medica [...] | Self | [birth year] | [address] | | | al/Fam | | 1955 | [phone] | [address] [place] | | | [place] | | | 8 (Home) | [address] | + +--------+ +--------+ + + Advance Directives Patient has advance care planning documents, and code status on file. For more information, please contact:[facility] [place] [address] + + + + + | Code Status | Date | Date | Comments | | | Activated | Inactivated | | + + + + + | Full Code | 07/02/2014 | 07/05/2014 | | | | 16:37 | 19:39 | | + + + + +
--- OUTSIDE RECORDS SUMMARY | ~2019-03-07 | XMS | Encounter Summary ---
Demographics + + + | Address | [address] | | | [place] [address] | + + + | Home Phone [...] + + + | Author | [facility] [facility] | + + + | Organization | [facility] [employer] [facility] | + + + | Address | Unknown | + + + | Phone | Unavailable | + + + Support + + +---------+ + | Name | Relationship | Address | Phone | + + +---------+ + | Araceli Sibley | ECON | Unknown | | + + +---------+ + Care Team Providers + +------+ + | Care Line Supervisor Name | Role | Phone | [...] + | 03/01/ | Documentati | SOILA Domran | Ashley Chávez | Talia ([address] | | 2019 | on Only | Cardiology [place] | TONG Abad | [address] ) | | | | [address] | | | | | | [address] | | | | | | [place] [address] | | | | | | [phone] | | | +--------+ + + + [...] [place] | | | | | | [address] | | | | | | | | +--------+---------+ + + + as of this encounter Visit Diagnoses Not on filein this encounter"
--- OUTSIDE RECORDS SUMMARY | ~2019-03-07 | XMS | Clinical Summary ---
Demographics + + + | Address | [address] | | | [place] [address] | + + + | Home Phone | | + + + | Preferred Language | Unknown | + + + | Marital Status | Single | + + + | Druze Affiliation | Unknown | + + + | Race | Unknown | + + + | Ethnic Group | Unknown | + + + Author + + + | Author | [facility] | + + + | Organization | [facility] | + + + | Address | Unknown | + + + | Phone | Unavailable | + + + Support + + +---------+ + | Name | Relationship | Address | Phone | + + +---------+ + | Araceli Sibley | ECON | Unknown | | + + +---------+ + Care Team Providers + +------+ + | Care Land Surveying Survey Worker Name | Role | Phone | [...] | | | | e | | (GeneCaptureTOBragBet VERIO FLEX | | | | | [...] + | 03/07/ | Telephone | | Julia | | | 2019 | | | DMITRIY Kennedy | | +--------+ + + + + | 03/06/ | Documentati | | Ashley Chávez | Talia ([facility] | 2018 | on Only | | TONG Abad | Stress Test - | | | | | | 03-05-19 ) | +--------+ + + + + | 03/01/ | Documentati | | Desiree Peterson DO | Cardiac Event | | 2018 | on Only | | Nneka Celis MA | Monitor (1 week) | +--------+ + + + + | 03/01/ | Documentati | | Ashley Chávez | Talia ([address] | | 2018 | on Only | | TONG Abad | Shlomo Notes. ) | +--------+ + + + + [...] whether | | | | | | longterm insulin | | | | | | use ([facility]) | +--------+ + + + + | 02/09/ | Documentati | | Bernarda Nicholas, | Talia ([place] | | 2019 | on Only | | RETORT ENGINEER | Family Medicine) | +--------+ + + + + | 02/09/ | Documentati | | Bernarda Nicholas, | Other ( Shlomo | | 2019 | on Only | | RETORT ENGINEER | [facility]) | +--------+ + + + + from [...] | | | | | [place] | | | | | | [address] | | | | | | | [...] + + from Last 3 Months Results EK STANDARD 12 LEAD (02/22/2019 1:49 PM) + [...] + + + + | Calculated P [place] | 60 | degrees | [facility] | + + + + + | Calculated R [place] | -21 | degrees | [facility] | + + + + + | Calculated T [place] | 9 | degrees | [facility] | + + + + + | Diagnosis | Please refer to | | [facility] | | | Providers office visit | | | | | note for Providers | | | | | Interpretation.Confirmed | | | | | by [facility] [place] Read Only, | | | | | ICA Ravi ([id number]), | | | | | editor publications Mc Manning | | | | | ([id number]) on 02/22/2019 | | | | | 3:03:19 PM | | | + + + + + + + + + + | Performing | Address | City/State/Zipcode | Phone Number | | Organization | | | | + + + + + | [facility] | [address] | [place] [address] | | + + + + + [...] +------+-------+ + | MEDICARE | MEDICA | [id number] | | | [address] | | | RE | | | | [place] [address] | | | IP-OP | | | [...] Self | [birth year] Home: | [address] | | | al/Fam | | [phone] | [phone] | [address] [place] | | | devonte | | | [phone] | [address] | + +--------+ +--------+ + +
--- OUTSIDE RECORDS SUMMARY | ~2019-03-07 | XMS | Encounter Summary ---
Demographics + + + | Address | [address] [facility] [address] | | | [place] [address] | + + + | Home Phone [...] [place] | | | | | [address] | | + + + + + [...] | Transcriptions | + + | Interface, Import/Export Freight Forwarder In - 11/04/2006 3:03 AM PST | | [address] | | [place], [place] [address] [facility] | | ClinicsOPERATION RECORDMed [...] skin retractor was put in place. The Fay elevators wereused to separate the | | [...]
--- OUTSIDE RECORDS SUMMARY | ~2019-03-07 | XMS | Encounter Summary ---
Demographics + + + | Address | [address] | | | [place] [address] | + + + | Home Phone [...] + + + | Author | [facility] | + + + | Organization | [facility] | + + + | Address | Unknown | + + + | Phone | Unavailable | + + + Support + + +---------+ + | Name | Relationship | Address | Phone | + + +---------+ + | Araceli Sibley | ECON | Unknown | | + + +---------+ + Care Team Providers + +------+ + | Care Bow Rehairer Name | Role | Phone | + [...] | | | | | [place] [address] | | | | | | [phone] | | | +--------+ + + + [...] [place] | | | | | | [address] | | | | | | | | +--------+---------+ + + + as of this encounter Visit Diagnoses Not on filein this encounter"
--- OUTSIDE RECORDS SUMMARY | ~2019-03-07 | XMS | Encounter Summary ---
Demographics + + + | Address | [address] | | | [place] [address] | + + + | Home Phone [...] + + + | Author | [facility] | + + + | Organization | [facility] | + + + | Address | Unknown | + + + | Phone | Unavailable | + + + Support + + +---------+ + | Name | Relationship | Address | Phone | + + +---------+ + | Araceli Sibley | ECON | Unknown | | + + +---------+ + Care Team Providers + +------+ + | Care Geospatial Intelligence Analyst Name | Role | Phone | + +------+ + | Mallorie Shaffer PA-C | PCP | | + +------+ + Reason for Visit +--------+ + | Reason | Comments | +--------+ + | Other | [facility] | +--------+ + Encounter Details +--------+ + + + + | Date | Type | Department | Care Team | Description | +--------+ + + + + | 02/09/ | Documentati | SOILA Dorman | Cindy Nicholas, | Other ([facility] | | 2019 | on Only | Cardiology Carlitos | [employer] | Family Medicine) | | | | [address] | | | | | | [place] | | | | | | [address] | | | | | | [phone] | | | +--------+ + + + [...] [place] | | | | | | [address] | | | | | | | | +--------+---------+ + + + as of this encounter Visit Diagnoses Not on filein this encounter"
--- OUTSIDE RECORDS SUMMARY | ~2019-03-07 | XMS | Encounter Summary ---
Demographics + + + | Address | [address] [address] | | | [place] [address] | + + + | Home Phone [...] [place] | | | | | [address] | | + + + + + Care Team Providers + +------+ + | Care Email Campaign Specialist Name | Role | Phone | [...] | Transcriptions | + + | Interface, Yard Cleaner In - 10/24/2006 3:09 AM PST | | [facility] | | Road [place], [place] [address] [place] | | [facility] RECORDMed Rec No.: [id number] Date: [...]
--- OUTSIDE RECORDS SUMMARY | ~2019-03-07 | XMS | Encounter Summary ---
Demographics + + + | Address | [address] | | | [place] [address] | + + + | Home Phone [...] + + + | Author | [facility] | + + + | Organization | [facility] | + + + | Address | Unknown | + + + | Phone | Unavailable | + + + Support + + +---------+ + | Name | Relationship | Address | Phone | + + +---------+ + | Araceli Sibley | ECON | Unknown | | + + +---------+ + Care Team Providers + +------+ + | Care Building Insulation Installer Name | Role | Phone [...] | | | | stress test | [address] | | | | | | | Phone: | | | | | | | [phone] | | | | | | | Fax: | | | | | | | [phone] | | + +--------+ + + + + Reason for Visit + + + | Reason | Comments | + + + | Establish Care | NEW PATIENT | + + + Encounter Details +--------+---------+ + + + | Date | Type | Department | Care Team | Description | +--------+---------+ + + + | 02/22/ | Office | [facility] | Desiree Peterson DO | Chest pain, | | 2019 | Visit | Cardiology [place] | [address] | unspecified type | | | | [address] | [facility] [address] | (Primary Dx); | | | | [place] [address] | [id number] | Palpitation; | | | | [place] [address] | | Hypertension, | | | | [phone] | | unspecified type; | | | [...] whether | | | | | | avian keeper insulin | | | | | | [...] note may be different from porfirio muir. [facility] Cardiology Consult Note Reason for Consultation: [...] by mouth daily. Blood Glucose Monitoring Suppl ([employer] [place] VERIO FLEX SYSTEM) w/Device KIT by Does [...] [place] | | | | | | [id number] | | | | | | | [...] + + + + | Calculated P [place] | 60 | degrees | [facility] | + + + + + | Calculated R [place] | -21 | degrees | [facility] | + + + + + | Calculated T [place] | 9 | degrees | [facility] | + + + + + | Diagnosis | Please refer to | | [facility] | | | Providers office visit | | | | | note for Providers | | | | | Interpretation.Confirmed | | | | | by [facility] [place] Read Only, | | | | | ICA Ravi ([id number]), | | | | | book or script editor Mc Manning | | | | | (722) on 02/22/2019 | | | | | 3:03:19 PM | | | + + + + + + + + + + | Performing | Address | City/State/Zipcode | Phone Number | | Organization | | | | + + + + + | [facility] | [address] | [place] [address] | | + + + + + [...]
--- OUTSIDE RECORDS SUMMARY | ~2019-03-07 | XMS | Encounter Summary ---
Demographics + + + | Address | [address] | | | [place] [address] | + + + | Home Phone [...] + + + | Author | [facility] | + + + | Organization | [facility] | + + + | Address [...] Phone | + +------+ + | Jose gA MD | PCP | | + +------+ [...] | [address] | [place] | | | | | [place] [address] | [address] | | | | | [place] [address] | | | | | | [phone] | Nneka Celis MA | | +--------+ [...] MA - 03/01/2019 9:00 AM PDT1 week shelter monitor placed on patient. EOB/B illing information discussed. [...] [place] | | | | | | [address] | | | | | | | | +--------+---------+ + + + as of this encounter Visit Diagnoses + + | Diagnosis | + + | Palpitation | + + | Palpitations | + +"
--- OUTSIDE RECORDS SUMMARY | ~2019-03-07 | XMS | Encounter Summary ---
Demographics + + + | Address | [address] [facility] [address] | | | [place] [address] | + + + | Home Phone [...] Author + + + | Author | [facility] | + + + | Organization | [facility] | + + + | Address | Unknown | + + + | Phone | Unavailable | + + + Support + + + + + | Name | Relationship | Address | Phone | + + + + + | Kelsy Bautista | ECON | [address] | | | | | [place] | | | | | [address] | | + + + + + Care Team Providers + +------+ + | Care Memorial Marker Designer Name | Role | Phone | [...] | | | | | [address] | | | | | | Road [place], [place] | | | | | | [address] | | | +--------+ + + + [...]
--- OUTSIDE RECORDS SUMMARY | ~2019-03-07 | XMS | Encounter Summary ---
Demographics + + + | Address | [address] | | | [place] [address] | + + + | Home Phone [...] + + + | Author | [facility] | + + + | Organization | [facility] | + + + | Address | Unknown | + + + | Phone | Unavailable | + + + Support + + +---------+ + | Name | Relationship | Address | Phone | + + +---------+ + | Araceli Sibley | ECON | Unknown | | + + +---------+ + Care Team Providers + +------+ + | Care Medical Director/Head Team Physician Name | Role | Phone | [...] | | | | stress test | [address] | | | | | | | Phone: | | | | | | | [phone] | | | | | | | Fax: | | | | | | | [phone] | | + +--------+ + + + + Reason for Visit + + + | Reason | Comments | + + + | Establish Care | NEW PATIENT | + + + Encounter Details +--------+---------+ + + + | Date | Type | Department | Care Team | Description | +--------+---------+ + + + | 02/22/ | Office | [facility] | Desiree Peterson DO | Chest pain, | | 2019 | Visit | Cardiology [place] | [address] | unspecified type | | | | [address] | [facility] [place] | (Primary Dx); | | | | [place] [address] | [id number] | Palpitation; | | | | [place] [address] | | Hypertension, | | | | [phone] | | unspecified type; | | | [...] whether | | | | | | ocean transportation intermediary insulin | | | | | | [...] note may be different from porfirio muir. [facility] Cardiology Consult Note Reason for [...] by mouth daily. Blood Glucose Monitoring Suppl ([employer] VERIO FLEX SYSTEM) w/Device KIT by Does [...] [place] | | | | | | [id number] | | | | | | | [...] + + + + | Calculated P [place] | 60 | degrees | [facility] | + + + + + | Calculated R [place] | -21 | degrees | [facility] | + + + + + | Calculated T [place] | 9 | degrees | [facility] | + + + + + | Diagnosis | Please refer to | | [facility] | | | Providers office visit | | | | | note for Providers | | | | | Interpretation.Confirmed | | | | | by [facility] [place] Read Only, | | | | | ICA Ravi ([id number]), | | | | | editor in chief newspaper Mc Manning | | | | | (308) on 02/22/2019 | | | | | 3:03:19 PM | | | + + + + + + + + + + | Performing | Address | City/State/Zipcode | Phone Number | | Organization | | | | + + + + + | [facility] | [address] | [place] [address] | | + + + + + [...]
--- OUTSIDE RECORDS SUMMARY | ~2019-03-07 | XMS | Encounter Summary ---
Demographics + + + | Address | [address] [facility] [address] | | | [place] [address] | + + + | Home Phone [...] Author + + + | Author | [facility] | + + + | Organization | [facility] | + + + | Address | Unknown | + + + | Phone | Unavailable | + + + Support + + + + + | Name | Relationship | Address | Phone | + + + + + | Kelsy Bautista | ECON | [address] | | | | | [place] | | | | | [address] | | + + + + + Care Team Providers + +------+ + | Care Pecan Cleaner Name | Role | Phone | [...] | | | | | | [place] [address] | | | | | | [phone] | | | | | | | [...] in | | | | | | [place] with a | | | | | [...] | | | | | | [facility] | | | | | | Laboratory, [place], | | | | | | [place], delivered | | | | | | [...] by | | | | | | wjzlolzgPje-Kwl-K: | | | | | | Increased [...] unohistochemistryC-1: | | | | | | DejzkmiaYQ13 | | | | | | stain [...] | | | | cs determined by [facility] | | | | | | laboratories. [...] | + + + + + | [facility] | [address] | [place] [address] | | | PATHOLOGY | [place] | | | + + + + + documented in this encounter Visit Diagnoses Not on filedocumented in this encounter
--- OUTSIDE RECORDS SUMMARY | ~2019-03-07 | XMS | Encounter Summary ---
Demographics + + + | Address | [address] | | | [place] [address] | + + + | Home Phone [...] + + + | Author | [facility] | + + + | Organization | [facility] | + + + | Address | Unknown | + + + | Phone | Unavailable | + + + Support + + +---------+ + | Name | Relationship | Address | Phone | + + +---------+ + | Araceli Sibley | ECON | Unknown | | + + +---------+ + Care Team Providers + +------+ + | Care Wallpaper Cleaner Name | Role | Phone | + +------+ + | Mallorie Shaffer PA-C | PCP | | + +------+ + Reason for Visit +--------+ + | Reason | Comments | +--------+ + | Other | [facility] | +--------+ + Encounter Details +--------+ + + + + | Date | Type | Department | Care Team | Description | +--------+ + + + + | 02/09/ | Documentati | SOILA Dorman | Cindy Nicholas, | Other ([facility] | | 2019 | on Only | Cardiology [place] | [facility] | [facility]) | | | | [address] | | | | | | [place] | | | | | | [address] | | | | | | [phone] | | | +--------+ + + + [...] [place] | | | | | | [address] | | | | | | | | +--------+---------+ + + + as of this encounter Visit Diagnoses Not on filein this encounter"
--- OUTSIDE RECORDS SUMMARY | ~2019-03-07 | XMS | Encounter Summary ---
Demographics + + + | Address | [address] [address] | | | [place] [address] | + + + | Home Phone [...] [place] | | | | | [address] | | + + + + + Care Team Providers + +------+ + | Care Automatic Vulcanizing Operator Name | Role | Phone | [...] Clinic | | | | | | [facility] | | | | | | [place], [place] | | | | | | [address] | | | | | | [phone] | | | +--------+ + + + [...] as of this encounter Progress Notes Interface, Wall Taper In - 12/11/2006 5:03 AM [facility] DATE: 07/03/97 INFECTIOUS DISEASE CLINIC: REFERRED [...]
--- OUTSIDE RECORDS SUMMARY | ~2019-03-07 | XMS | Encounter Summary ---
Demographics + + + | Address | [address] [facility] [address] | | | [place] [address] | + + + | Home Phone [...] Author + + + | Author | [facility] | + + + | Organization | [facility] | + + + | Address | Unknown | + + + | Phone | Unavailable | + + + Support + + + + + | Name | Relationship | Address | Phone | + + + + + | Kelsy Bautista | ECON | [address] | | | | | [place] | | | | | [address] | | + + + + + Care Team Providers + +------+ + | Care Accounts Payable Analyst Name | Role | Phone | [...] | | | | | [address] [place] | | | | | | Road [place], [place] | | | | | | [address] | | | +--------+ + + + [...]
--- OUTSIDE RECORDS SUMMARY | ~2019-03-07 | XMS | Encounter Summary ---
Demographics + + + | Address | [address] | | | [place] [address] | + + + | Home Phone [...] + + + | Author | [facility] | + + + | Organization | [facility] | + + + | Address | Unknown | + + + | Phone | Unavailable | + + + Support + + +---------+ + | Name | Relationship | Address | Phone | + + +---------+ + | Araceli Sibley | ECON | Unknown | | + + +---------+ + Care Team Providers + +------+ + | Care Fabric Coating Supervisor Name | Role | Phone | [...] | [address] | [place] | | | | | [place] [address] | [address] | | | | | [place] [address] | | | | | | [phone] | Nneka Celis MA | | +--------+ [...] MA - 03/01/2019 9:00 AM PDT1 week desk monitor placed on patient. EOB/B illing information [...] [place] | | | | | | [address] | | | | | | | | +--------+---------+ + + + as of this encounter Visit Diagnoses + + | Diagnosis | + + | Palpitation | + + | Palpitations | + +"
--- OUTSIDE RECORDS SUMMARY | ~2019-03-07 | XMS | Encounter Summary ---
Demographics + + + | Address | [address] | | | [place] [address] | + + + | Home Phone [...] CENTER NO | | | | | [place] | | | | | [address] | | + + + + + Care Team Providers + +------+ + | Care Safety Glass Installer Name | Role | Phone | [...] + + | 02/01/ | Telephone | [facility] [place] | Frandy Teresa, | Imaging Only | | 2019 | | NE[address]OSUR[address]ERY [address] | DO [address] | | | | | [address] | [address] [place], | | | | | [place], [place] | [place] [address] | | | | | [address] | [phone] | | | | | [phone] | | | +--------+ + + + [...]
--- OUTSIDE RECORDS SUMMARY | ~2019-03-07 | XMS | Encounter Summary ---
Demographics + + + | Address | [address] | | | [place] [address] | + + + | Home Phone [...] [place] | | | | | [address] | | + + + + + Care Team Providers + +------+ + | Care Battery Vent Plug Inserter Name | Role | Phone | [...] + + | 02/01/ | Telephone | [facility] [place] | Frandy Teresa, | Imaging Only | | 2019 | | NEUROSURGERY [address] | DO [address] | | | | | [address] | [address] [place], | | | | | [place], [place] | [place] [address] | | | | | [address] | [phone] | | | | | [phone] | | | +--------+ + + + [...]
--- OUTSIDE RECORDS SUMMARY | ~2019-03-07 | XMS | Encounter Summary ---
Demographics + + + | Address | [address] | | | [place] [address] | + + + | Home Phone [...] + + + | Author | [facility] | + + + | Organization | [facility] | + + + | Address | Unknown | + + + | Phone | Unavailable | + + + Support + + +---------+ + | Name | Relationship | Address | Phone | + + +---------+ + | Araceli Sibley | ECON | Unknown | | + + +---------+ + Care Team Providers + +------+ + | Care Inspector Machine Cut Glass Name | Role | Phone | + +------+ + | Mallorie Shaffer PA-C | PCP | | + +------+ + Reason for Visit +--------+ + | Reason | Comments | +--------+ + | Other | [facility] | +--------+ + Encounter Details +--------+ + + + + | Date | Type | Department | Care Team | Description | +--------+ + + + + | 02/09/ | Documentati | SOILA Dorman | Cindy Nicholas, | Other ([facility] | | 2019 | on Only | Cardiology [place] | HUMAN RELATIONS TEACHER | Family Medicine) | | | | [address] | | | | | | [place] | | | | | | [address] | | | | | | [phone] | | | +--------+ + + + [...] [place] | | | | | | [address] | | | | | | | | +--------+---------+ + + + as of this encounter Visit Diagnoses Not on filein this encounter"
--- OUTSIDE RECORDS SUMMARY | ~2019-03-07 | XMS | Encounter Summary ---
Demographics + + + | Address | [address] [facility] [address] [address] | | | [place] [address] | + + + | Home Phone [...] Author + + + | Author | [facility] | + + + | Organization | [facility] | + + + | Address | Unknown | + + + | Phone | Unavailable | + + + Support + + + + + | Name | Relationship | Address | Phone | + + + + + | Kelsy Bautista | ECON | [address] | | | | | [place] | | | | | [address] | | + + + + + Care Team Providers + +------+ + | Care Specialist Icu Name | Role | Phone | [...] | | | | | | [place] | | | | | | [place] [address] | | | | | | [phone] | | | +--------+ + + + [...] | | | | | STEREO | [place] | | | | | | | [...] | | + +---------+ + + | [facility] | | | | | RADIOLOGY | | | | + +---------+ + + documented in this encounter Visit Diagnoses Not on filedocumented in this encounter"
--- OUTSIDE RECORDS SUMMARY | ~2019-03-07 | XMS | Encounter Summary ---
Demographics + + + | Address | [address] [facility] [address] | | | [place] [address] | + + + | Home Phone [...] | Author | [facility] | + + + | Organization | [facility] | + + + | Address | Unknown | + + + | Phone | Unavailable | + + + Support + + + + + | Name | Relationship | Address | Phone | + + + + + | Kelsy Bautista | ECON | [address] | | | | | [place] | | | | | [address] | | + + + + + Care Team Providers + +------+ + | Care Assembly Line Driver Name | Role | Phone | [...] Pat | | | | | | [facility] Mailcode: | | | | | | [id number] [place], [place] | | | | | | [address] | | | | | | [phone] | | | +--------+ + + + [...] [facility] | [address] | [place] [address] | | | PATHOLOGY | [address] [...] | | | | | | [place] [id number] | | | | + + + + + + + + | Specimen | + + | | + + + + + + + | Performing | Address | City/State/Zipcode | Phone Number | | Organization | | | | + + + + + | [facility] | [address] | [place] [address] | | | PATHOLOGY | [address] [...] | | | | | | [place] [id number] | | | | + + + + + + + + | Specimen | + + | | + + + + + + + | Performing | Address | City/State/Zipcode | Phone Number | | Organization | | | | + + + + + | [facility] | [address] | [place] [address] | | | PATHOLOGY | [address] [...] | | | | | | [place] [id number] | | | | + + + + + + + + | Specimen | + + | | + + + + + + + | Performing | Address | City/State/Zipcode | Phone Number | | Organization | | | | + + + + + | [facility] | [address] | [place] [address] | | | PATHOLOGY | [address] [...] | | | | | | Re [id number] | | | | + + + + + + + + | Specimen | + + | | + + + + + + + | Performing | Address | City/State/Zipcode | Phone Number | | Organization | | | | + + + + + | [facility] | [address] | [place] [address] | | | PATHOLOGY | [address] | | | + + + + + documented in this encounter Visit Diagnoses Not on filedocumented in this encounter"
--- OUTSIDE RECORDS SUMMARY | ~2019-03-07 | XMS | Clinical Summary ---
Demographics + + + | Address | [address] | | | [place] [address] | + + + | Home Phone [...] + + + | Author | [facility] | + + + | Organization | [facility] | + + + | Address | Unknown | + + + | Phone | Unavailable | + + + Support + + +---------+ + | Name | Relationship | Address | Phone | + + +---------+ + | Araceli Sibley | ECON | Unknown | | + + +---------+ + Care Team Providers + +------+ + | Care Dump Worker Name | Role | Phone | [...] | | | | e | | ([employer] VERIO FLEX | | | | | [...] Documentati | | Ashley Chávez | Talia ([facility] | 2018 | on Only [...] whether | | | | | | correction insulin | | | | | | use ([facility]) | +--------+ + + + + | 02/09/ | Documentati | | Bernarda Nicholas, | Talia ([facility] | | 2019 | on Only | | FREIGHT CAR INSPECTOR | Family Medicine) | +--------+ + + + + | 02/09/ | Documentati | | Bernarda Nicholas, | Other ( Shlomo | | 2019 | on Only | | FREIGHT CAR INSPECTOR | [facility]) | +--------+ + + + [...] | | | | | [place] | | | | | | [address] | | | | | | | [...] + + + + | Calculated P [place] | 60 | degrees | [facility] | + + + + + | Calculated R [place] | -21 | degrees | [facility] | + + + + + | Calculated T [place] | 9 | degrees | [facility] | + + + + + | Diagnosis | Please refer to | | [facility] | | | Providers office visit | | | | | note for Providers | | | | | Interpretation.Confirmed | | | | | by [facility] Read Only, | | | | | [facility] Ravi ([id number]), | | | | | loan expeditor Mc Manning | | | | | ([id number]) on 02/22/2019 | | | | | 3:03:19 PM | | | + + + + + + + + + + | Performing | Address | City/State/Zipcode | Phone Number | | Organization | | | | + + + + + | [facility] | [address] | [place] [address] | | + + + + + [...] +------+-------+ + | MEDICARE | MEDICA | [id number] | | | [address] | | | RE | | | | [place] [address] | | | IP-OP | | | [...] Self | [birth year] Home: | [address] | | | al/Fam | | [phone] | [phone] | [address] [place] | | | devonte | | | [phone] | + +--------+ +--------+ + +
--- OUTSIDE RECORDS SUMMARY | ~2019-03-07 | XMS | Encounter Summary ---
Demographics + + + | Address | [address] | | | [place] [address] | + + + | Home Phone [...] Author + + + | Author | [facility] | + + + | Organization | [facility] | + + + | Address | Unknown | + + + | Phone | Unavailable | + + + Support + + + + + | Name | Relationship | Address | Phone | + + + + + | Kelsy Bautista | ECON | [address] | | | | | [place] | | | | | [address] | | + + + + + Care Team Providers + +------+ + | Care Supervisor Natural Gas Plant Name | Role | Phone | [...] Pat | | | | | | [facility] Mailcode: | | | | | | [id number] [place], [place] | | | | | | [address] | | | | | | [phone] | | | +--------+ + + + [...] [facility] | [address] | [place] [address] | | | PATHOLOGY | [address] [...] | | | | | | [place] [id number] | | | | + + + + + + + + | Specimen | + + | | + + + + + + + | Performing | Address | City/State/Zipcode | Phone Number | | Organization | | | | + + + + + | [facility] | [address] | [place] [address] | | | PATHOLOGY | [address] [...] | | | | | | [place] [phone] | | | | + + + + + + + + | Specimen | + + | | + + + + + + + | Performing | Address | City/State/Zipcode | Phone Number | | Organization | | | | + + + + + | [facility] | [address] | [place] [address] | | | PATHOLOGY | [address] [...] | | | | | | [place] [phone] | | | | + + + + + + + + | Specimen | + + | | + + + + + + + | Performing | Address | City/State/Zipcode | Phone Number | | Organization | | | | + + + + + | [facility] | [address] | [place] [address] | | | PATHOLOGY | [address] [...] | | | | | | [place] [phone] | | | | + + + + + + + + | Specimen | + + | | + + + + + + + | Performing | Address | City/State/Zipcode | Phone Number | | Organization | | | | + + + + + | [facility] | [address] | [place] [address] | | | PATHOLOGY | [address] | | | + + + + + documented in this encounter Visit Diagnoses Not on filedocumented in this encounter"
--- OUTSIDE RECORDS SUMMARY | ~2019-03-07 | XMS | Encounter Summary ---
Demographics + + + | Address | [address] | | | [place] [address] | + + + | Home Phone [...] [place] | | | | | [address] | | + + + + + Care Team Providers + +------+ + | Care Home Health Rn Name | Role | Phone | [...] | Transcriptions | + + | Interface, Short Goods Drier In - 11/04/2006 3:03 AM PST | | [address] | | [place], [place] [address] [facility] and | | ClinicsOPERATION RECORDMed Rec No.: [id number] Date: 07/08/98Name: Yris, | | PatriciaATTENDING SURGEON:Lazaro Tello M.D.Professor, OphthalmologyASSISTANT(S):Jsoe | | Doreen DawsonFellow, OphthalmologyPREOPERATIVE DIAGNOSIS: Complete [...] skin retractor was put in place. The [place] elevators wereused to separate the | | [...]
--- OUTSIDE RECORDS SUMMARY | ~2019-03-07 | XMS | Encounter Summary ---
Demographics + + + | Address | [address] | | | [place] [address] | + + + | Home Phone [...] Author | [facility] | + + + | Organization | [facility] | + + + | Address | Unknown | + + + | Phone | Unavailable | + + + Support + + + + + | Name | Relationship | Address | Phone | + + + + + | Kelsy Bautista | ECON | [address] | | | | | [place] | | | | | [address] | | + + + + + Care Team Providers + +------+ + | Care Restaurant Kitchen And Service Manager Name | Role | Phone [...] | | | | | | [place] | | | | | | [place] [address] | | | | | | [phone] | | | +--------+ + + + [...] | | + +---------+ + + | [facility] DEPARTMENT OF | | | | | RADIOLOGY | | | | + +---------+ + + documented in this encounter Visit Diagnoses Not on filedocumented in this encounter"
--- OUTSIDE RECORDS SUMMARY | ~2019-03-07 | XMS | Encounter Summary ---
Demographics + + + | Address | [address] [facility] [address] | | | [place] [address] | + + + | Home Phone [...] Author + + + | Author | [facility] | + + + | Organization | [facility] | + + + | Address | Unknown | + + + | Phone | Unavailable | + + + Support + + + + + | Name | Relationship | Address | Phone | + + + + + | Kelsy Bautista | ECON | [address] | | | | | [place] | | | | | [address] | | + + + + + Care Team Providers + +------+ + | Care Military Nurse Name | Role | Phone | [...] | | | | | | [place] [address] | | | | | | [phone] | | | | | | | [...] in | | | | | | [place] with a | | | | | [...] [facility] | | | | | | Laboratory, [place], | | | | | | [place], delivered | | | | | | [...] by | | | | | | weudbtwcRow-Tyv-H: | | | | | | Increased [...] unohistochemistryC-1: | | | | | | [id number] | | | | | | stain [...] | | | | cs determined by [facility] | | | | | | laboratories. [...] + + + | [facility] | [address] | [place] [address] | | | PATHOLOGY | [address] | | | + + + + + documented in this encounter Visit Diagnoses Not on filedocumented in this encounter
--- OUTSIDE RECORDS SUMMARY | ~2019-03-07 | XMS | Encounter Summary ---
Demographics + + + | Address | [address] [facility] [address] [address] [address] | | | [place] [address] | + + + | Home Phone [...] + + + | Author | [facility] | + + + | Organization | [facility] | + + + | Address | Unknown | + + + | Phone | Unavailable | + + + Support + + + + + | Name | Relationship | Address | Phone | + + + + + | Kelsy Bautista | ECON | [address] | | | | | [place] | | | | | [address] | | + + + + + Care Team Providers + +------+ + | Care Document Imaging Manager Name | Role | Phone | [...] Clinic | | | | | | [facility], [address] | | | | | | [place], [place] | | | | | | [address] | | | | | | [phone] | | | +--------+ + + + [...] as of this encounter Progress Notes Interface, Training Development Director In - 12/11/2006 5:03 AM [facility] DATE: 07/03/97 INFECTIOUS DISEASE CLINIC: [...]
[~2019-03-07 10:34] MED LIST changes: +DEPAKOTE ER500 MG PO; +PAXIL20 MG PO
--- OUTSIDE RECORDS SUMMARY | 2019-03-07 10:36 | XMS ---
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 Security Safety Consultant Events No recent Security Events currently on file CRITERIA MET - [facility] - Has Care Guidelines - PDMP CARE PROVIDERS Kenny Palafox DO [facility] Current PHONE: Unknown Jose Ag [facility] 01/31/2019-Current PHONE: Unknown [facility] Current PHONE: [phone] Guidelines Source: Vivian Negrete Guidelines Date: 07/06/2018 Care Coordination: Currently engaged in mental health services with [facility].\T\nbsp; Please contact [facility] with mental health concerns. [phone] Care History Medical/Surgical 01/31/2019 [facility] - Patient is currently established with [facility]. If patient is seen in the ED during business hours. Please contact CHWs at [facility]. Care Recommendation: This patient has had 5 or more Emergency Department visits in the last 12 months.\T\nbsp; Patient requires education on the scope and purpose of the ED as an acute care provider not a Primary Care Provider and should not be utilized for chronic conditions.\T\nbsp; These are guidelines and the provider should exercise clinical judgment when providing care. 01/12/2019 [facility] - CHW RECEIVED ED CASE MANAGEMENT CONSULT- HELP PATIENT WITH PCP SET UP. - PATIENT HAS AN ED FOLLOW UP VISIT WITH DR AG ON 01/17/19. - CHW SPOKE WITH CARMEN AT THE CLINIC -PATIENT NEEDS TO SIGN AN LORRI TO RELEASE RECORDS FROM [email or web address] WITH CURRENT MEDICATIONS LISTED FOR DR AG TO REVIEW IN ORDER TO SET UP AN ESTABLISHING CARE APT. - A TE WAS SENT TO ESCOBAR ACEVEDO [facility] TO HELP PATIENT WITH LORRI PROCESS AND [email or web address] RECORDS. E.D. VISIT COUNT ([address] 3 [facility] TOTAL 3 NOTE: Visits indicate total known visits. ED/UCC VISIT TRACKING (12 MO.) 03/07/2019 10:34 [facility] [place] TYPE: Emergency COMPLAINT: - CHEST PAIN 01/30/2019 16:57 [facility] [place] TYPE: Emergency COMPLAINT: - CHEST PAIN DIAGNOSES: - Essential (primary) hypertension - MCC (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 of 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 - Other shelter (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 - Allergy status to sulfonamides status - Gastro-esophageal reflux disease without esophagitis - Allergy status to other antibiotic agents status - Personal history of transient ischemic attack (TIA), and cerebral infarction without residual deficits - Other chest pain - Cough - Allergy status to other drugs, medicaments and biological substances status 01/09/2019 12:12 [facility] [place] TYPE: Emergency COMPLAINT: - MEDICAL CLEARANCE DIAGNOSES: - Gastro-esophageal reflux disease without esophagitis - Bariatric surgery status - MCC (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 - Other shelter (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 - Suicidal ideations - [...] visits to display in this time frame [email or web address]
[2019-03-07] MEDS ORDERED: CLONAZEPAM0.5 MG PO (10:50)
--- NOTE | 2019-03-07 13:19 | EKG ---
[facility] [address] [place] [address] Signed Normal sinus rhythm Possible Anterior infarct (cited on or before 30-JAN-2019) Abnormal ECG When compared with ECG of 30-JAN-2019 17:09, Questionable change in initial forces of Lateral leads Confirmed by PHIL SAMAYOA MD ([id number]) on 03/07/2019 1:18:55 PM Electronically Signed By: PHIL SAMAYOA MD 03/07/19 1319 PATIENT NAME: BERNARDA ALARCON Electrocardiogram DATE OF : 55 PHYSICIAN: PHIL SAMAYOA MD REPORT #: [id number] REPORT IS CONFIDENTIAL AND NOT TO BE RELEASED WITHOUT AUTHORIZATION
== END 2019-03-07 12:30 | disposition home or self-care (01) ==
LOC: ED 10:34
DX: K21.9 Gastro-esophageal reflux disease without esophagitis (principal); R60.9 Edema, unspecified; I10 Essential (primary) hypertension; Z86.73 Personal history of transient ischemic attack (TIA), and cerebral infarction without residual deficits; Z88.2 Allergy status to sulfonamides; Z88.8 Allergy status to other drugs, medicaments and biological substances
CPT/HCPCS: 80053; 83880; 84484; 85025; 93005; 93010; 99285-25

== ENCOUNTER 2019-03-19 19:33 | Emergency (ER) | payer MEDICARE ==
[~2019-03-19] VITALS: Ht 167.6 cm; Wt 108.9 kg
--- OUTSIDE RECORDS SUMMARY | ~2019-03-19 | XMS | Encounter Summary ---
Demographics + + + | Address | [address] | | | [place] [address] | + + + | Home Phone [...] | Araceli Sibley | ECON | [address] | | | | | [place] | | | | | [address] | | + + + + + Care Team Providers + +------+ + | Care Cardiac Cath Lab Radiology Technologist Name | Role | Phone | + +------+ + | Adriano Patrick MD | PCP | | + +------+ + Reason for Visit + + + | Reason | Comments | + + + | Imaging Only | | + + + Encounter Details +--------+ + + + + | Date | Type | Department | Care Team | Description | +--------+ + + + + | 02/01/ | Telephone | [facility] [place] | Frandy Teresa, | Imaging Only | | 2019 | | NEUROSURGERY [address] | DO [address] | | | | | [address] | [address] [place], | | | | | [place], [place] | [place] [address] | | | | | [address] | [phone] | | | | | [phone] | | | +--------+ + + + [...]
--- OUTSIDE RECORDS SUMMARY | ~2019-03-19 | XMS | Encounter Summary ---
Demographics + + + | Address | [address] | | | [place] [address] | + + + | Home Phone | | + + + | Preferred Language | Unknown | + + + | Marital Status | Single | + + + | Worship Affiliation | Unknown | + + + | Race | Unknown | + + + | Ethnic Group | Unknown | + + + Author + + + | Author | [facility] | + + + | Organization | [facility] | + + + | Address | Unknown | + + + | Phone | Unavailable | + + + Support + + +---------+ + | Name | Relationship | Address | Phone | + + +---------+ + | Araceli Sibley | ECON | Unknown | | + + +---------+ + Care Team Providers + +------+ + | Care Customer Sales Service Manager Name | Role | Phone | + +------+ + | Jose Ag MD | PCP | | + +------+ + Reason for Visit + + + | Reason | Comments | + + + | Cardiac Event | 1 week | | Monitor | | + + + Encounter Details +--------+ + + + + | Date | Type | Department | Care Team | Description | +--------+ + + + + | 03/01/ | Documentati | [facility] | Desiree Peterson DO | Cardiac Event | | 2019 | on Only | Cardiology [facility] | [address] | Monitor (1 week) | | | | [address] | [place] [address] | | | | | [place] [address] | [address] | | | | | [place] [address] | | | | | | [phone] | Nneka Celis MA | | +--------+ + + + + [...] + + + as of this encounter Progress Notes Nneka Celis MA - 03/01/2019 9:00 AM PDT1 week monitor technician placed on patient. EOB/B illing information discussed. Instructions given and understood. Patient instructed to max Donovan for any billing or monitor questions. in this encounter Plan of Treatment +--------+---------+ + + + | Date | Type | Specialty | Care Team | Description | +--------+---------+ + + + | 05/10/ | Office | Cardiology | Desiree Peterson DO | | | 2018 | Visit | | [address] | | | | | | [place] | | | | | | [address] | | | | | | | | +--------+---------+ + + + as of this encounter Visit Diagnoses + + | Diagnosis | + + | Palpitation | + + | Palpitations | + +"
--- OUTSIDE RECORDS SUMMARY | ~2019-03-19 | XMS | Encounter Summary ---
Demographics + + + | Address | [address] | | | [place] [address] | + + + | Home Phone | | + + + | Preferred Language | Unknown | + + + | Marital Status | | + + + | Spiritism Affiliation | 1013 | + + + [...] Araceli Sibley | ECON | [address] | | | | | [place] | | | | | [address] | | + + + + + Care Team Providers + +------+ + | Care Joinery Patternmaker Name | Role | Phone | + [...] + + | 02/01/ | Telephone | [facility] [place] | Frandy Teresa, | Imaging Only | | 2019 | | [address] | DO [address] | | | | | [address] | [address] [place], | | | | | [place], [place] | [place] [address] | | | | | [address] | [phone] | | | | | [phone] | | | +--------+ + + + [...]
--- OUTSIDE RECORDS SUMMARY | ~2019-03-19 | XMS | Encounter Summary ---
Demographics + + + | Address | [address] | | | [place] [address] | + + + | Home Phone | | + + + | Preferred Language | Unknown | + + + | Marital Status | Single | + + + | Orthodoxy Affiliation | Unknown | + + + | Race | Unknown | + + + | Ethnic Group | Unknown | + + + Author + + + | Author | [facility] | + + + | Organization | [facility] | + + + | Address | Unknown | + + + | Phone | Unavailable | + + + Support + + +---------+ + | Name | Relationship | Address | Phone | + + +---------+ + | Araceli Sibley | ECON | Unknown | | + + +---------+ + Care Team Providers + +------+ + | Care Railcar Mechanic Name | Role | Phone | [...] [place] | | | | | | [address] | | | | | | [phone] | | | +--------+ + + + [...] 05/10/ | Office | Cardiology | Desiree Peetrson DO | | | 2019 | Visit | | [address] | | | | | | [place] | | | | | | [address] | | | | | | | | +--------+---------+ + + + as of this encounter Visit Diagnoses Not on filein this encounter"
--- OUTSIDE RECORDS SUMMARY | ~2019-03-19 | XMS | Encounter Summary ---
Demographics + + + | Address | [address] [facility] [address] | | | [place] [address] | + + + | Home Phone [...] [place] | | | | | [address] | | + + + + + Care Team Providers + +------+ + | Care Client Support Coordinator Name | Role | Phone | [...] | Transcriptions | + + | Interface, Asphalt Plant Operator In - 10/24/2006 3:09 AM PST | | [facility] | | [place], [place] [address] [place] | | [facility] Hospital[facility] RECORDMed Rec No.: [id number] Date: | [...]
--- OUTSIDE RECORDS SUMMARY | ~2019-03-19 | XMS | Encounter Summary ---
Demographics + + + | Address | [address] | | | [place] [address] | + + + | Home Phone [...] + + + | Author | [facility] | + + + | Organization | [facility] | + + + | Address | Unknown | + + + | Phone | Unavailable | + + + Support + + +---------+ + | Name | Relationship | Address | Phone | + + +---------+ + | Araceli Sibley | ECON | Unknown | | + + +---------+ + Care Team Providers + +------+ + | Care Tailoring Teacher Name | Role | Phone | + +------+ + | Mallorie Shaffer PA-C | PCP | | + +------+ + Reason for Visit +--------+ + | Reason | Comments | +--------+ + | Other | [facility] | +--------+ + Encounter Details +--------+ + + + + | Date | Type | Department | Care Team | Description | +--------+ + + + + | 02/09/ | Documentati | [facility] | Cindy Nicholas, | Other ([facility] | | 2019 | on Only | Cardiology [place] | [facility] | [facility]) | | | | [address] | | | | | | [place] | | | | | | [address] | | | | | | [phone] | | | +--------+ + + + [...] [place] | | | | | | [address] | | | | | | | | +--------+---------+ + + + as of this encounter Visit Diagnoses Not on filein this encounter"
--- OUTSIDE RECORDS SUMMARY | ~2019-03-19 | XMS | Encounter Summary ---
Demographics + + + | Address | [address] | | | [place] [address] | + + + | Home Phone | | + + + | Preferred Language | Unknown | + + + | Marital Status | Single | + + + | Samaritan Affiliation | Unknown | + + + | Race | Unknown | + + + | Ethnic Group | Unknown | + + + Author + + + | Author | [facility] | + + + | Organization | [facility] | + + + | Address | Unknown | + + + | Phone | Unavailable | + + + Support + + +---------+ + | Name | Relationship | Address | Phone | + + +---------+ + | Araceli Sibley | ECON | Unknown | | + + +---------+ + Care Team Providers + +------+ + | Care Academic Affairs Coordinator Name | Role | Phone | + +------+ + | Mallorie Shaffer PA-C | PCP | | + +------+ + Reason for Visit +--------+ + | Reason | Comments | +--------+ + | Other | [facility] | +--------+ + Encounter Details +--------+ + + + + | Date | Type | Department | Care Team | Description | +--------+ + + + + | 02/09/ | Documentati | [facility] | Cindy Nicholas, | Other ([facility] | | 2019 | on Only | Cardiology [place] | RAILROAD REPAIRER | Family Medicine) | | | | [address] | | | | | | [place] | | | | | | [address] | | | | | | [phone] | | | +--------+ + + + [...] [place] | | | | | | [address] | | | | | | | | +--------+---------+ + + + as of this encounter Visit Diagnoses Not on filein this encounter"
--- OUTSIDE RECORDS SUMMARY | ~2019-03-19 | XMS | Clinical Summary ---
Demographics + + + | Address | [address] | | | [place] [address] | + + + | Home Phone | | + + + | Preferred Language | Unknown | + + + | Marital Status | Single | + + + | Sikh Affiliation | Unknown | + + + | Race | Unknown | + + + | Ethnic Group | Unknown | + + + Author + + + | Author | [facility] | + + + | Organization | [facility] | + + + | Address | Unknown | + + + | Phone | Unavailable | + + + Support + + +---------+ + | Name | Relationship | Address | Phone | + + +---------+ + | Araceli Sibley | ECON | Unknown | | + + +---------+ + Care Team Providers + +------+ + | Care Deaf And Hard Of Hearing Teacher Name | Role | Phone | [...] | Other (See Comments) | Medium | 20 | Makes her skin | | | [...] | | | | e | | ([employer] VERIO FLEX | | | | | [...] | | | + + +-------+---------+------+------+-------+ | SUPER B COMPLEX/C | Take by mouth | | | | | Activ | | PO | daily. | | | | | e | + + +-------+---------+------+------+-------+ | loperamide | [...] | | + + +-------+---------+------+------+-------+ | Calcium | Take by mouth. | | | | | Activ | | Carbonate-Vit D-Min | | | | | | e | | (CALCIUM 1200 PO) | | | | | | | + + +-------+---------+------+------+-------+ | Cholecalciferol | Take by mouth. | | | | | Activ | | (VITAMIN D3) 1999 | | | | | | e | | units TABS | | | | | | | + + +-------+---------+------+------+-------+ | divalproex | Take 500 mg by mouth | | | | | Activ | | (DEPAKOTE) 500 MG EC | 3 (three) times | | | | | e | | tablet | daily. | | | | | | + + +-------+---------+------+------+-------+ | zaleplon (SONATA) | Take 10 mg by mouth | | | | | Activ | | 10 MG capsule | nightly. | | | | | e | + + +-------+---------+------+------+-------+ | ARIPiprazole | Take 20 mg by mouth | | | | 05/0 | Disco | | (ABILIFY) 20 MG | daily. | | | | 2/20 | ntinu | | tablet | | | | | 19 | ed | + + +-------+---------+------+------+-------+ | busPIRone (BUSPAR) | Take 15 mg by mouth | | | | 05/0 | Disco | | 15 MG tablet | 3 (three) times | | | | 2/20 | ntinu | | | daily. | | | | 19 | ed | + + +-------+---------+------+------+-------+ | cloNIDine | Take 0.1 mg by mouth | | | | 05/0 | Disco | | (CATAPRES) 0.1 MG | 2 (two) times | | | | 2/20 | ntinu | | tablet | daily. | | | | 19 | ed | + + +-------+---------+------+------+-------+ | mirtazapine | Take 15 mg by mouth | | | | 05/0 | Disco | | (REMERON) 15 mg | nightly. | | | | 2/20 | ntinu | | tablet | | | | | 19 | ed | + + +-------+---------+------+------+-------+ Active Problems + [...] + | T2DM (type 2 diabetes mellitus) (HCC) | 04/13/2013 | + + + Encounters +--------+ + + + + | Date | Type | Specialty | Care Team | Description | +--------+ + + + + | 03/07/ | Telephone | | Julia, | | | 2018 | | | DMITRIY Kennedy | | +--------+ + + + + | 03/06/ | Documentati | | Ashley Chávez | Other ([facility] | | 2018 | on Only | Pham Abad MA | Stress Test - | | | | | | 03-05-19 ) | +--------+ + + + + | 03/01/ | Documentati | | Desiree Peterson DO | Cardiac Event | | 2019 | on Only | | Nneka Celis MA | Monitor (1 week) | +--------+ + + + + | 03/01/ | Documentati | | Katharine Moncada, | Cardiac Event | | 2019 | on Only | | RT | Monitor (end of | | | | | | study) | +--------+ + + + + | 03/01/ | Documentati | | Ashley Chávez | Other ([address] | | 2019 | on Only | | TONG Abad | Shlomo Najera. ) | +--------+ + + + + | 02/22/ | Office | | Desiree Peterson DO | Chest pain, | | 2019 | Visit | | | unspecified type | | | | | | (Primary Dx); | | | | | | Palpitation; | | | | | | Hypertension, | | | | | | unspecified type; | | | | | | Hyperlipidemia, | | | | | | unspecified | | | | | | hyperlipidemia type; | | | | | | Obesity, | | | | | | unspecified | | | | | | classification, | | | | | | unspecified obesity | | | | | | type, unspecified | | | | | | whether serious | | | | | | comorbidity present; | | | | | | ROGERS (obstructive | | | | | | sleep apnea); | | | | | | Controlled type 2 | | | | | | diabetes mellitus | | | | | | without | | | | | | complication, | | | | | | unspecified whether | | | | | | remote computer terminal operator insulin | | | | | | use (HCC) | +--------+ + + + + | 02/09/ | Documentati | | Bernarda Nicholas, | Talia ([facility] | 2018 | on Only | | HOME HEALTH PROVIDER | Family Medicine) | +--------+ + + + + | 02/09/ | Documentati | | Bernarda Nicholas, | Talia ([facility] | 2018 | on Only | | HOME HEALTH PROVIDER | [facility]) | +--------+ + + + + from [...] + + + | Blood Pressure | 120/70 | 02/22/2019 1:44 PM PDT | + + + + | Pulse | 88 | 02/22/2019 1:44 PM PDT | + + + + | Temperature | - | - | + + + + | Respiratory Rate | - | - | + + + + | Oxygen Saturation | 94% | 02/22/2019 1:44 PM PDT | + + + + | Inhaled Oxygen | - | - | | Concentration | | | + + + + | Weight | 99.8 kg (220 lb) | 02/22/2019 1:44 PM PDT | + + + + | Height | 170.2 cm (5' 7") | 02/22/2019 1:44 PM PDT | + + + + | Body Mass Index | 34.46 | 02/22/2019 1:44 PM PDT | + + + + Plan of Treatment +--------+---------+ + + + | Date | Type | Specialty | Care Team | Description | +--------+---------+ + + + | 05/10/ | Office | | Desiree Peterson DO | | | 2019 | Visit | | [address] | | | | | | [facility] [place] | | | | | | [address] | | | | | | | [...] Vaccine: Influenza | | | | | (Season Ended) | 9 | | | + + + + + | Vaccine: | Completed | 05/29/2013 | | | Pneumococcal 19-64 | | | | | (PPSV23 only) Medium | | | | | Risk | | | | + + + + + Procedures + +--------+ + + + | Procedure Name | Priori | Date/Time | Associated Diagnosis | Comments | | | ty | | | | + +--------+ + + + | EKG STANDARD 12 LEAD | Routin | 02/22/2019 | Chest pain, | Results for this | | | e | 1:49 PM | unspecified type | procedure are in the | | | | PDT | | results section. | + +--------+ + + + from Last 3 Months Results EKG STANDARD 12 LEAD (02/22/2019 1:49 PM) + + + + + | Component | Value | Ref Range | Performed At | + + + + + | Ventricular Rate | 82 | BPM | [facility] | + + + + + | Atrial Rate | 82 | BPM | [facility] | + + + + + | P-R Interval | 176 | ms | [facility] | + + + + + | QRS Duration | 80 | ms | [facility] | + + + + + | Q-T Interval | 382 | ms | [facility] | + + + + + | QTC Calculation | 446 | ms | [facility] | | (Bezet) | | | | + + + + + | Calculated P Welda | 60 | degrees | [facility] | + + + + + | Calculated R Welda | -21 | degrees | [facility] | + + + + + | Calculated T Welda | 9 | degrees | [facility] | + + + + + | Diagnosis | Please refer to | | [facility] | | | Providers office visit | | | | | note for Providers | | | | | Interpretation.Confirmed | | | | | by [facility] [place] Read Only, | | | | | [facility] Ravi ([id number]), | | | | | scientific editor Mc Manning | | | | | ([id number]) on 02/22/2019 | | | | | 3:03:19 PM | | | + + + + + + + + + + | Performing | Address | City/State/Zipcode | Phone Number | | Organization | | | | + + + + + | [facility] | [address] | [facility] [place] [address] | | + + + + + from Last 3 Months Insurance + +--------+ +------+-------+ + | Payer | Benefi | Subscriber | Type | Phone | Address | | | t Plan | ID | | | | | | / | | | | | | | Group | | | | | + +--------+ +------+-------+ + | MEDICARE | MEDICA | [id number] | | | [address] | | | RE | | | | [place] [address] | | | IP-OP | | | | | + +--------+ +------+-------+ + + +--------+ +--------+ + + | Guarantor Name | Accoun | Relation to | Date | Phone | Billing Address | | | t Type | Patient | of | | | | | | | | | | + +--------+ +--------+ + + | BERNARDA ARNDT | Person | Self [birth year] Home: | [address] | | | al/Fam | | 1955 | [phone] | [address] [place] | | | devonte | | | [phone] | + +--------+ +--------+ + +
--- OUTSIDE RECORDS SUMMARY | ~2019-03-19 | XMS | Encounter Summary ---
Demographics + + + | Address | [address] | | | [place] [address] | + + + | Home Phone | | + + + | Preferred Language | Unknown | + + + | Marital Status | Single | + + + | Oriental Orthodox Affiliation | Unknown | + + + | Race | Unknown | + + + | Ethnic Group | Unknown | + + + Author + + + | Author | [facility] | + + + | Organization | [facility] | + + + | Address | Unknown | + + + | Phone | Unavailable | + + + Support + + +---------+ + | Name | Relationship | Address | Phone | + + +---------+ + | Araceli Sibley | ECON | Unknown | | + + +---------+ + Care Team Providers + +------+ + | Care Rehabilitation Psychologist Name | Role | Phone | + +------+ + | Jose Ag MD | PCP | | + +------+ + Encounter Details +--------+ + + + + | Date | Type | Department | Care Team | Description | +--------+ + + + + | 03/07/ | Telephone | [facility] Dorman | Julia, | | | 2018 | | Arun [place]amb[place] | DMITRIY Kennedy | | | | | [address] | | | | | | [place] | | | | | | [address] | | | | | | [phone] | | | +--------+ + + + [...] [place] | | | | | | [address] | | | | | | | | +--------+---------+ + + + as of this encounter Visit Diagnoses Not on filein this encounter"
--- OUTSIDE RECORDS SUMMARY | ~2019-03-19 | XMS | Encounter Summary ---
Demographics + + + | Address | [address] | | | [place] [address] | + + + | Home Phone [...] Author + + + | Author | [facility] | + + + | Organization | [facility] | + + + | Address | Unknown | + + + | Phone | Unavailable | + + + Support + + + + + | Name | Relationship | Address | Phone | + + + + + | Kelsy Bautista | ECON | [address] | | | | | [place] | | | | | [address] | | + + + + + Care Team Providers + +------+ + | Care Fuel Verification Technician Name | Role | Phone | + +------+ + PCP | Unavailable | + +------+ + Encounter Details +--------+ + + + + | Date | Type | Department | Care Team | Description | +--------+ + + + + | 07/03/ | Office | General Internal | Note, Outpatient | Progress Note | | 1996 | Visit-Trans | Medicine [address] | Clinic | | | | [address]kitty | [address] | | | | | | Road Mailcode: L475 | | | | | | Outpatient Clinic | | | | | | [facility], [address] | | | | | | [place], [place] | | | | | | [address] | | | | | | [phone] | | | +--------+ + + + [...] as of this encounter Progress Notes Interface, Hospice Coordinator In - 12/11/2006 5:03 AM [facility] DATE: 07/03/97 INFECTIOUS DISEASE CLINIC: REFERRED [...]
--- OUTSIDE RECORDS SUMMARY | ~2019-03-19 | XMS | Encounter Summary ---
Demographics + + + | Address | [address] | | | [place] [address] | + + + | Home Phone [...] Author + + + | Author | [facility] | + + + | Organization | [facility] | + + + | Address | Unknown | + + + | Phone | Unavailable | + + + Support + + + + + | Name | Relationship | Address | Phone | + + + + + | Kelsy Bautista | ECON | [address] | | | | | [place] | | | | | [address] | | + + + + + Care Team Providers + +------+ + | Care Fuel Handler Name | Role | Phone | + +------+ + PCP | Unavailable | + +------+ + Encounter Details +--------+ + + + + | Date | Type | Department | Care Team | Description | +--------+ + + + + | 02/04/ | Hospital | LAB SURGICAL | | | | 2014 | Encounter | PATHOLOGY [address] | | | | | | [address] | | | | | | Road [place], [place] | | | | | | [address] | | | +--------+ + + + [...]
--- OUTSIDE RECORDS SUMMARY | ~2019-03-19 | XMS | Encounter Summary ---
Demographics + + + | Address | [address] [facility] [address] | | | [place] [address] | + + + | Home Phone [...] Author + + + | Author | [facility] | + + + | Organization | [facility] | + + + | Address | Unknown | + + + | Phone | Unavailable | + + + Support + + + + + | Name | Relationship | Address | Phone | + + + + + | Kelsy Bautista | ECON | [address] | | | | | [place] | | | | | [address] | | + + + + + Care Team Providers + +------+ + | Care Railroad Signal Technician Name | Role | Phone | + +------+ + PCP | Unavailable | + +------+ + Encounter Details +--------+ + + + + | Date | Type | Department | Care Team | Description | +--------+ + + + + | 07/03/ | Results | Infectious | Deon Lopez, | | | 1996 | Only | Diseases [address] | | | | | | [address] | | | | | | Road Mailcode: L608 | | | | | | Outpatient Clinic | | | | | | [place] | | | | | | [place] [address] | | | | | | [phone] | | | +--------+ + + + [...] | | | | | STEREO | BERNARDA | | | | | | | | | | | | | | | | | | - | | | | | | CHEST, PA AND LATERAL | | | | | | VIEWS: 07-03-97 AT | | | | | | 1209 | | | | | | HOURS DICTATED: | | | | | | 07-04-97 There are no | | | | | | old films available for | | | | | | comparison. | | | | | | FINDINGS: | | | | | | The heart size is | | | | | | normal. The pulmonary | | | | | | vasculatureis | | | | | | [...] | | + +---------+ + + | [facility] DEPARTMENT OF | | | | | RADIOLOGY | | | | + +---------+ + + documented in this encounter Visit Diagnoses Not on filedocumented in this encounter"
--- OUTSIDE RECORDS SUMMARY | ~2019-03-19 | XMS | Encounter Summary ---
Demographics + + + | Address | [address] [facility] [address] | | | [place] [address] | + + + | Home Phone [...] Author + + + | Author | [facility] | + + + | Organization | [facility] | + + + | Address | Unknown | + + + | Phone | Unavailable | + + + Support + + + + + | Name | Relationship | Address | Phone | + + + + + | Kelsy Bautista | ECON | [address] | | | | | [place] | | | | | [address] | | + + + + + Care Team Providers + +------+ + | Care Leaflet Distributor Name | Role | Phone | [...] Pat | | | | | | [facility] Mailcode: | | | | | | [id number] [place], [place] | | | | | | [address] | | | | | | [phone] | | | +--------+ + + + [...] | + + + + + | [facility] | [address] | [place] [address] | | | PATHOLOGY | [address] [...] | | | | | | [place] [id number] | | | | + + + + + + + + | Specimen | + + | | + + + + + + + | Performing | Address | City/State/Zipcode | Phone Number | | Organization | | | | + + + + + | [facility] | [address] | [place] [address] | | | PATHOLOGY | [address] [...] | | | | | | [place] [id number] | | | | + + + + + + + + | Specimen | + + | | + + + + + + + | Performing | Address | City/State/Zipcode | Phone Number | | Organization | | | | + + + + + | [facility] | [address] | [place] [address] | | | PATHOLOGY | [address] [...] | | | | | | [place] [id number] | | | | + + + + + + + + | Specimen | + + | | + + + + + + + | Performing | Address | City/State/Zipcode | Phone Number | | Organization | | | | + + + + + | [facility] | [address] | [place] [address] | | | PATHOLOGY | [address] [...] | | | | | | [place] [id number] | | | | + + + + + + + + | Specimen | + + | | + + + + + + + | Performing | Address | City/State/Zipcode | Phone Number | | Organization | | | | + + + + + | [facility] | [address] | [place] [address] | | | PATHOLOGY | [address] | | | + + + + + documented in this encounter Visit Diagnoses Not on filedocumented in this encounter"
--- OUTSIDE RECORDS SUMMARY | ~2019-03-19 | XMS | Encounter Summary ---
Demographics + + + | Address | [address] [facility] [address] | | | [place] [address] | + + + | Home Phone [...] Author + + + | Author | [facility] | + + + | Organization | [facility] | + + + | Address | Unknown | + + + | Phone | Unavailable | + + + Support + + + + + | Name | Relationship | Address | Phone | + + + + + | Kelsy Bautista | ECON | [address] | | | | | [place] | | | | | [address] | | + + + + + Care Team Providers + +------+ + | Care Bindery Machine Tender Name | Role | Phone [...] Clinic | | | | | | [facility], [address] | | | | | | [place], [place] | | | | | | [address] | | | | | | [phone] | | | +--------+ + + + [...] as of this encounter Progress Notes Interface, Clothing Man In - 12/11/2006 5:03 AM [facility] DATE: 07/03/97 INFECTIOUS DISEASE CLINIC: [...]
--- OUTSIDE RECORDS SUMMARY | ~2019-03-19 | XMS | Encounter Summary ---
Demographics + + + | Address | [address] | | | [place] [address] | + + + | Home Phone [...] + + + | Author | [facility] | + + + | Organization | [facility] | + + + | Address | Unknown | + + + | Phone | Unavailable | + + + Support + + +---------+ + | Name | Relationship | Address | Phone | + + +---------+ + | Araceli Sibley | ECON | Unknown | | + + +---------+ + Care Team Providers + +------+ + | Care Social Worker Aide Name | Role | Phone | + +------+ + | Jose Ag MD | PCP | | + +------+ + Reason for Visit + + + | Reason | Comments | + + + | Cardiac Event | end of study | | Monitor | | + + + Encounter Details +--------+ + + + + | Date | Type | Department | Care Team | Description | +--------+ + + + + | 03/01/ | Documentati | [facility] | Katharine Moncada, | Cardiac Event | | 2019 | on Only | Cardiology Roverto | RT | Monitor (end of | | | | [address] | | study) | | | | [place] | | | | | | [address] | | | | | | [phone] | | | +--------+ + + + [...] + as of this encounter Progress Notes Desiree Peterson, DO - 03/01/2019 11:59 PM PDT [employer] Date of Event Monitor: 03/01/19 Referring Physician: Ltia Patient:Cindy Arndt : 1955 Age: 63 y.o. female INDICATIONS: Palpitations. Procedure: Continuous ambulatory ECG for the duration of 48 hours. During this recording, the underlying rhythm is Sinus, the lowest heart rate was 63 BPM, the highest heart rate 137 BPM, averaging 87 BPM. During this recording interval, 381 PACs were recorded; there were 3 episodes of SVT the longest and fastest of which was 19 beats at 146BPM. Also, 117 PVCs w ere recorded; there were 14 couplets and one triplet. No AV conduction abnormalities observ ed. No ischemia detected. The heart rate trends did demonstrate a normal circadian pattern . In the patient's diary, there were 7 symptoms reported including dizziness, palpitations, chest discomfort, and unspecified symptoms. These corresponded to sinus rhythm and ventric ular ectopy. Impressions: 1: Sinus, as described above. 2: 3 brief runs of SVT as above 3: Rare ventricular and supraventricular ectopy 4: No AV conduction abnormalities detected. 5: No ischemia detected. 6:Symptoms of "7 symptoms reported including dizziness, palpitations, chest discomfort, an d unspecified symptoms", associated with sinus rhythm and ventricular ectopy. Recomendations: Clinical correlation suggested. Desiree Peterson DO in this encounter Plan of Treatment +--------+---------+ + + + | Date | Type | Specialty | Care Team | Description | +--------+---------+ + + + | 05/10/ | Office | Cardiology | Desiree Peterson DO | | | 2019 | Visit | | [address] | | | | | | [place] | | | | | | [id number] | | | | | | | | +--------+---------+ + + + as of this encounter Visit Diagnoses + + | Diagnosis | + + | Palpitation - Primary | + + | Palpitations | + +
--- OUTSIDE RECORDS SUMMARY | ~2019-03-19 | XMS | Encounter Summary ---
Demographics + + + | Address | [address] | | | [place] [address] | + + + | Home Phone [...] + + + | Author | [facility] | + + + | Organization | [facility] | + + + | Address | Unknown | + + + | Phone | Unavailable | + + + Support + + +---------+ + | Name | Relationship | Address | Phone | + + +---------+ + | Araceli Sibley | ECON | Unknown | | + + +---------+ + Care Team Providers + +------+ + | Care Fish [employer] Game [employer] Manager Name | Role | Phone | [...] | | | | stress test | [id number] | | | | | | | Phone: | | | | | | | [phone] | | | | | | | Fax: | | | | | | | [phone] | | + +--------+ + + + + Reason for Visit + + + | Reason | Comments | + + + | Establish Care | NEW PATIENT | + + + Encounter Details +--------+---------+ + + + | Date | Type | Department | Care Team | Description | +--------+---------+ + + + | 02/22/ | Office | [facility] | Desiree Peterson DO | Chest pain, | | 2019 | Visit | Cardiology [facility] | [address] | unspecified type | | | | [address] | [place] [facility] [place] | (Primary Dx); | | | | [place] [address] | [phone] | Palpitation; | | | | [place] [address] | | Hypertension, | | | | [phone] | | unspecified type; | | | [...] whether | | | | | | block captain insulin | | | | | | [...] note may be different from porfirio muir. [facility] Cardiology Cardiology Consult Note Reason for [...] by mouth daily. Blood Glucose Monitoring Suppl ([employer] VERIO FLEX SYSTEM) w/Device KIT by Does [...] [place] | | | | | | [id number] | | | | | | | [...] + + + + | Calculated P [place] | 60 | degrees | [facility] | + + + + + | Calculated R [place] | -21 | degrees | [facility] | + + + + + | Calculated T [place] | 9 | degrees | [facility] | + + + + + | Diagnosis | Please refer to | | [facility] | | | Providers office visit | | | | | note for Providers | | | | | Interpretation.Confirmed | | | | | by [facility] [place] Read Only, | | | | | [facility]avi ([id number]), | | | | | makeup editor Mc Manning | | | | | ([id number]) on 02/22/2019 | | | | | 3:03:19 PM | | | + + + + + + + + + + | Performing | Address | City/State/Zipcode | Phone Number | | Organization | | | | + + + + + | [facility] | [address] | [place] [address] | | + + + + + [...]
--- OUTSIDE RECORDS SUMMARY | ~2019-03-19 | XMS | Encounter Summary ---
Demographics + + + | Address | [address] | | | [place] [address] | + + + | Home Phone [...] + + + | Author | [facility] | + + + | Organization | [facility] | + + + | Address | Unknown | + + + | Phone | Unavailable | + + + Support + + +---------+ + | Name | Relationship | Address | Phone | + + +---------+ + | Araceli Sibley | ECON | Unknown | | + + +---------+ + Care Team Providers + +------+ + | Care Bit Welder Name | Role | Phone | [...] | | | | stress test | [address] | | | | | | | Phone: | | | | | | | [phone] | | | | | | | Fax: | | | | | | | [phone] | | + +--------+ + + + + Reason for Visit + + + | Reason | Comments | + + + | Establish Care | NEW PATIENT | + + + Encounter Details +--------+---------+ + + + | Date | Type | Department | Care Team | Description | +--------+---------+ + + + | 02/22/ | Office | [facility] | Desiree Peterson DO | Chest pain, | | 2019 | Visit | Cardiology [place] | [address] | unspecified type | | | | [address] | [facility] [place] | (Primary Dx); | | | | [place] [address] | [id number] | Palpitation; | | | | [place] [address] | | Hypertension, | | | | [phone] | | unspecified type; | | | [...] whether | | | | | | termite treater helper insulin | | | | | | [...] note may be different from porfirio muir. [facility] Cardiology Cardiology Consult Note Reason for Consultation: [...] by mouth daily. Blood Glucose Monitoring Suppl (PPI VERIO FLEX SYSTEM) w/Device KIT by Does [...] [place] | | | | | | [id number] | | | | | | | [...] + + + + | Calculated P Horicon | 60 | degrees | [facility] | + + + + + | Calculated R Horicon | -21 | degrees | [facility] | + + + + + | Calculated T Horicon | 9 | degrees | [facility] | + + + + + | Diagnosis | Please refer to | | [facility] | | | Providers office visit | | | | | note for Providers | | | | | Interpretation.Confirmed | | | | | by [facility] Read Only, | | | | | [facility]avi ([id number]), | | | | | web content editor Mc Manning | | | | | ([id number]) on 02/22/2019 | | | | | 3:03:19 PM | | | + + + + + + + + + + | Performing | Address | City/State/Zipcode | Phone Number | | Organization | | | | + + + + + | [facility] | [address] | [place] [address] | | + + + + + [...]
--- OUTSIDE RECORDS SUMMARY | ~2019-03-19 | XMS | Encounter Summary ---
Demographics + + + | Address | [address] [facility] [address] | | | [place] [address] | + + + | Home Phone [...] Author + + + | Author | [facility] | + + + | Organization | [facility] | + + + | Address | Unknown | + + + | Phone | Unavailable | + + + Support + + + + + | Name | Relationship | Address | Phone | + + + + + | Kelsy Bautista | ECON | [address] | | | | | [place] | | | | | [address] | | + + + + + Care Team Providers + +------+ + | Care Promotions Representative Name | Role | Phone | [...] | | | | | | [place] [address] | | | | | | [phone] | | | | | | | [...] | | | PATHOLOGY | Muscle Biopsy, | | DEPARTMENT | | | | Myopathy Final | | OF | | | | Pathologic | | PATHOLOGY | | | | Diagnosis:A. 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 Case | | | | | | seen by:Jasmeet Lucia, | | | | | | M.D. /Neuropathology | | | | | | [...] in | | | | | | [place] with a | | | | | [...] | | | | | treated with | | | | | | prednisone. | | | | | | Gross Description:The | | | | | | specimen is received | | | | | | fresh from Dr. Willis | | | | | | [place], via [facility] | | | | | [facility] | | [facility] | | | | | | Laboratory, [place], | | | | | | [place], delivered | | | | | | [...] | | | | | | histochemical | | | | | | studies. | | | | | | [...] | | | | | | | rimmedvacuolesNADH: [...] | | | | Small round fibers | | | | | | are of both fiber | | | | | | types. | | | | | | [...] | | | | | | artifactual | | | | | | leakage of glycogen into | | | | | | extracellular | | | | | | spacePAS-D: Diges | | | | | | cb by | | | | | | uwdcjtzeIjw-Hpj-L: | | | | | | Increased lipid | | | | | | content in Type 1 | | | | | | fibersAcid | | | | | | Phosphatase: | | | | | | Unremarkable | | | | | | subsarcolemmalAlkaline | | | | | | Phosphatase: Unre | | | | | | markable vascular | | | | | | labelingNon-specific | | | | | | Esterase: | | | | | | UnremarkableCongo-Red: | | | | | | | | | | | | NegativeMyophosphorylase | | | | | | : | | | | | | PresentMyoadenylate | | | | | | Deaminase: PresentImm | | | | | | unohistochemistryC-1: | | | | | | IduyeyqoPH34 | | | | | | stain shows only a few, | | | [...] | | | | cs determined by [facility] | | | | | | laboratories. It has | | | | | | not been clearedor | | | | | | approved by the U.S. | | | | | | Food and Drug | | | | | | Administration | | | | | | (FDA). FDA does | | | | | | notrequire this test to | | | | | | go through premarket FDA | | | | | | review. This test is | | | | | | usedfor clinical | | | | | | purposes. It should | | | | | | not be regarded as | | | | | | investigational or | | | | | [...] | | | | | | laboratory | | | | | | testing.) My | | | | | | electronic signature | | | | | | indicates that I have | | | | | | personally reviewed | | | | | | alldiagnostic slides, | | | | | | the gross and/or | | | | | | microscopic portion of | | | | | | thisreport and | | | | | | formulated the final | | | | | | diagnosis. | | | | | | Rendering | | | | | | Diagnostician: Jack | | | | | | raúl Ahmadi | | | | | | Doreen, Ph.D.Pathologis | | | | | | tElectronically Signed | | | | | | 02/24/2015 3:46PM | | | | + + + + + + + + | Specimen | + + | | + + + + + + + | Performing | Address | City/State/Zipcode | Phone Number | | Organization | | | | + + + + + | [facility] | [address] | [place] [address] | | | PATHOLOGY | [address] | | | + + + + + documented in this encounter Visit Diagnoses Not on filedocumented in this encounter
--- OUTSIDE RECORDS SUMMARY | ~2019-03-19 | XMS | Encounter Summary ---
Demographics + + + | Address | [address] | | | [place] [address] | + + + | Home Phone [...] Author + + + | Author | [facility] | + + + | Organization | [facility] | + + + | Address | Unknown | + + + | Phone | Unavailable | + + + Support + + + + + | Name | Relationship | Address | Phone | + + + + + | Kelsy Bautista | ECON | [address] | | | | | [place] | | | | | [address] | | + + + + + Care Team Providers + +------+ + | Care Deli Manager Name | Role | Phone | [...] Pat | | | | | | [facility] Mailcode: | | | | | | [address] [place], [place] | | | | | | [address] | | | | | | [phone] | | | +--------+ + + + [...] + + | [facility] | [address] | [place] [address] | | | PATHOLOGY | [address] [...] | | | | | | [place] [id number] | | | | + + + + + + + + | Specimen | + + | | + + + + + + + | Performing | Address | City/State/Zipcode | Phone Number | | Organization | | | | + + + + + | [facility] | [address] | [place] [address] | | | PATHOLOGY | [address] [...] | | | | | | [place] [id number] | | | | + + + + + + + + | Specimen | + + | | + + + + + + + | Performing | Address | City/State/Zipcode | Phone Number | | Organization | | | | + + + + + | [facility] | [address] | [place] [address] | | | PATHOLOGY | [address] [...] | | | | | | [place] [id number] | | | | + + + + + + + + | Specimen | + + | | + + + + + + + | Performing | Address | City/State/Zipcode | Phone Number | | Organization | | | | + + + + + | [facility] | [address] | [place] [address] | | | PATHOLOGY | [address] [...] | | | | | | [place] [id number] | | | | + + + + + + + + | Specimen | + + | | + + + + + + + | Performing | Address | City/State/Zipcode | Phone Number | | Organization | | | | + + + + + | [facility] | [address] | [place] [address] | | | PATHOLOGY | [address] | | | + + + + + documented in this encounter Visit Diagnoses Not on filedocumented in this encounter"
--- OUTSIDE RECORDS SUMMARY | ~2019-03-19 | XMS | Encounter Summary ---
Demographics + + + | Address | [address] | | | [place] [address] | + + + | Home Phone [...] Author + + + | Author | [facility] | + + + | Organization | [facility] | + + + | Address | Unknown | + + + | Phone | Unavailable | + + + Support + + + + + | Name | Relationship | Address | Phone | + + + + + | Kelsy Bautista | ECON | [address] | | | | | [place] | | | | | [address] | | + + + + + Care Team Providers + +------+ + | Care User Experience Developer Name | Role | Phone | [...] | | | | | | [place] | | | | | | [place] [address] | | | | | | [phone] | | | +--------+ + + + [...] | | + +---------+ + + | [facility] DEPARTMENT OF | | | | | RADIOLOGY | | | | + +---------+ + + documented in this encounter Visit Diagnoses Not on filedocumented in this encounter"
--- OUTSIDE RECORDS SUMMARY | ~2019-03-19 | XMS | Clinical Summary ---
Demographics + + + | Address | [address] [facility] [address] | | | [place] [address] | + + + | Home Phone [...] [place] | | | | | [address] | | + + + + + Care Team Providers + +------+ + | Care Human Projectile Name | Role | Phone | + +------+ + PP | Unavailable | + +------+ + Source Comments EDWARD is fully live on both [facility] and [facility] Allergies Not on File Medications [...] | | | | | | | [address] | | + +--------+ +--------+ + +--------+ + +--------+ +--------+ + + | Guarantor Name | Accoun | Relation to | Date | Phone | Billing Address | | | t Type | Patient | of | | | | | | | | | | + +--------+ +--------+ + + | CINDY ARNDT | Person | Self [birth year] [address] | | | al/Fam | | 1955 | [phone] | [address] [place] | | | [place] | | | 5 (Home) | [address] | + +--------+ +--------+ + +"
--- OUTSIDE RECORDS SUMMARY | ~2019-03-19 | XMS | Clinical Summary ---
Demographics + + + | Address | [address] | | | [place] [address] | + + + | Home Phone [...] + + + | Author | [facility] | + + + | Organization | [facility] | + + + | Address | Unknown | + + + | Phone | Unavailable | + + + Support + + +---------+ + | Name | Relationship | Address | Phone | + + +---------+ + | Araceli Sibley | ECON | Unknown | | + + +---------+ + Care Team Providers + +------+ + | Care Blanket Binder Name | Role | Phone | [...] | | | | e | | ([employer] VERIO FLEX | | | | | [...] Documentati | | Ashley Chávez | Other ([facility] | | 2018 | on Only | [...] whether | | | | | | 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 | | | | | | use (HCC) | +--------+ + + + + | 02/09/ | Documentati | | Bernarda Nicholas, | Talia ([place] | 2018 | on Only | | DRUM TESTER | Family Medicine) | +--------+ + + + + | 02/09/ | Documentati | | Bernarda Nicholas, | Talia ([facility] | 2018 | on Only | | DRUM TESTER | [facility]) | +--------+ + + + [...] [place] | | | | | | [address] | | | | | | | [...] + + + + | Calculated P Channelview | 60 | degrees | [facility] | + + + + + | Calculated R [place] | -21 | degrees | [facility] | + + + + + | Calculated T [place] | 9 | degrees | [facility] | + + + + + | Diagnosis | Please refer to | | [facility] | | | Providers office visit | | | | | note for Providers | | | | | Interpretation.Confirmed | | | | | by [facility] Read Only, | | | | | [facility] ([id number]), | | | | | editorial assistant Mc Manning | | | | | ([id number]) on 02/22/2019 | | | | | 3:03:19 PM | | | + + + + + + + + + + | Performing | Address | City/State/Zipcode | Phone Number | | Organization | | | | + + + + + | [facility] | [address] | [facility] [address] | | + + + + + [...] +------+-------+ + | MEDICARE | MEDICA | [id number] | | | [address] | | | RE | | | | [place] [address] | | | IP-OP | | | [...] Self | [birth year] Home: | [address] | | | al/Fam | | 1955 | [phone] | [address] [place] | | | [place] | | | [phone] | + +--------+ +--------+ + +
--- OUTSIDE RECORDS SUMMARY | ~2019-03-19 | XMS | Encounter Summary ---
Demographics + + + | Address | [address] | | | [place] [address] | + + + | Home Phone [...] + + + | Author | [facility] | + + + | Organization | [facility] | + + + | Address | Unknown | + + + | Phone | Unavailable | + + + Support + + +---------+ + | Name | Relationship | Address | Phone | + + +---------+ + | Araceli Sibley | ECON | Unknown | | + + +---------+ + Care Team Providers + +------+ + | Care Taxation Inspector Name | Role | Phone | [...] on Only | Cardiology [facility] | TONG Aabd | Stress Test - | | | | [address] | | 03-05-19 ) | | | | [place] | | | | | | [address] | | | | | | [phone] | | | +--------+ + + + [...] | | | | | [place] | | | | | | [address] | | | | | | | | +--------+---------+ + + + as of this encounter Visit Diagnoses Not on filein this encounter"
--- OUTSIDE RECORDS SUMMARY | ~2019-03-19 | XMS | Encounter Summary ---
Demographics + + + | Address | [address] | | | [place] [address] | + + + | Home Phone | | + + + | Preferred Language | Unknown | + + + | Marital Status | Single | + + + | Scientology Affiliation | Unknown | + + + | Race | Unknown | + + + | Ethnic Group | Unknown | + + + Author + + + | Author | [facility] | + + + | Organization | [facility] | + + + | Address | Unknown | + + + | Phone | Unavailable | + + + Support + + +---------+ + | Name | Relationship | Address | Phone | + + +---------+ + | Araceli Sibley | ECON | Unknown | | + + +---------+ + Care Team Providers + +------+ + | Care Trash Man Name | Role | Phone | + +------+ + | Mallorie Shaffer PA-C | PCP | | + +------+ + Reason for Visit +--------+ + | Reason | Comments | +--------+ + | Other | [facility] | +--------+ + Encounter Details +--------+ + + + + | Date | Type | Department | Care Team | Description | +--------+ + + + + | 02/09/ | Documentati | [facility] | Cindy Nicholas, | Other ([place] | | 2019 | on Only | Cardiology Carlitos | STAGE SET DESIGNER | Family Medicine) | | | | [address] | | | | | | [place] | | | | | | [address] | | | | | | [phone] | | | +--------+ + + + [...] [place] | | | | | | [address] | | | | | | | | +--------+---------+ + + + as of this encounter Visit Diagnoses Not on filein this encounter"
--- OUTSIDE RECORDS SUMMARY | ~2019-03-19 | XMS | Encounter Summary ---
Demographics + + + | Address | [address] [facility] | | | [place] [address] | + + + | Home Phone [...] Author + + + | Author | [facility] | + + + | Organization | [facility] | + + + | Address | Unknown | + + + | Phone | Unavailable | + + + Support + + + + + | Name | Relationship | Address | Phone | + + + + + | Kelsy Bautista | ECON | [address] | | | | | [place] | | | | | [address] | | + + + + + Care Team Providers + +------+ + | Care Pipeline Dispatcher Name | Role | Phone | [...] | | | | | [address] [place] | | | | | | Road [place], [place] | | | | | | [address] | | | +--------+ + + + [...]
--- OUTSIDE RECORDS SUMMARY | ~2019-03-19 | XMS | Encounter Summary ---
Demographics + + + | Address | [address] | | | [place] [address] | + + + | Home Phone [...] + + + | Author | [facility] | + + + | Organization | [facility] | + + + | Address | Unknown | + + + | Phone | Unavailable | + + + Support + + +---------+ + | Name | Relationship | Address | Phone | + + +---------+ + | Araceli Sibley | ECON | Unknown | | + + +---------+ + Care Team Providers + +------+ + | Care Vertical Contour Band Saw Operator Name | Role | Phone | [...] | | | | | [place] [address] | | | | | | [phone] | | | +--------+ + + + [...] [place] | | | | | | [address] | | | | | | | | +--------+---------+ + + + as of this encounter Visit Diagnoses Not on filein this encounter"
--- OUTSIDE RECORDS SUMMARY | ~2019-03-19 | XMS | Encounter Summary ---
Demographics + + + | Address | [address] | | | [place] [address] | + + + | Home Phone [...] + + + | Author | [facility] | + + + | Organization | [facility] | + + + | Address | Unknown | + + + | Phone | Unavailable | + + + Support + + +---------+ + | Name | Relationship | Address | Phone | + + +---------+ + | Araceli Sibley | ECON | Unknown | | + + +---------+ + Care Team Providers + +------+ + | Care Compensation Manager Name | Role | Phone | [...] | [address] | [place] | | | | | [place] [address] | [address] | | | | | [place] [address] | | | | | | [phone] | Nneka Celis [place] | | +--------+ [...] MA - 03/01/2019 9:00 AM PDT1 week groundwater monitoring technician placed on patient. EOB/B illing information [...] [place] | | | | | | [address] | | | | | | | | +--------+---------+ + + + as of this encounter Visit Diagnoses + + | Diagnosis | + + | Palpitation | + + | Palpitations | + +"
--- OUTSIDE RECORDS SUMMARY | ~2019-03-19 | XMS | Clinical Summary ---
Demographics + + + | Address | [address] | | | [place] [address] | + + + | Home Phone [...] [place] | | | | | [place] | | | | | [address] | | + + + + + Care Team Providers + +------+ + | Care Compliance Examiner Name | Role | Phone | [...] | | Activ | | (VITAMIN D-3) [address] | mouth Once a week. | | [...] | | + + + +---------+------+------+-------+ | [place]-3 Fatty | Take 1,000 mg by | [...] | [employer] - | | 04/02/ | [id number] | | 5ccImplanted: Qty: 1 on | [...] N/A: | SOFAMOR | | 01/21/ | [id number] | | [id number]: Qty: 1 on | | Spine | [...] N/A: | SOFAMOR | | 01/11/ | [id number] | | [id number]: Qty: 1 on | | Spine | [...] | N/A: | SOFAMOR | | | [id number] | | 4.75 - [id number]: | | Spine | DANEK - DIV | | | 0 / / | | Qty: 4 on 07/02/2014 by | | Lumbar | [employer] | | | | | Frandy Teresa DO | | | - SFDK | | | | + +------+--------+ +--------+--------+--------+ | RodImplanted: Qty: 1 on | | N/A: | | | | [id number] | | 07/02/2014 by Frandy Teresa | | Spine | | | | 540 / | | A DO | | Lumbar | | | | / | + +------+--------+ +--------+--------+--------+ | RodImplanted: Qty: 1 on | | N/A: | MEDTROL - | | | [id number] | | 07/02/2014 by Frandy Teresa | | Spine | MDTR | | | 545 / | | DO Ronak | | Lumbar | | | | / | + +------+--------+ +--------+--------+--------+ | Screw 7.5x50mm Sextant - | | N/A: | [employer] - | | | [id number] | | [id number]: Qty: 1 on | | Spine | MEDT | | | [id number] | | 07/02/2014 by Frandy Teresa | | Lumbar | | | | / / | | DO Ronak | | | | | | | + +------+--------+ +--------+--------+--------+ | Cannulated ScrewImplanted: | | N/A: | MEDTROL - | | | [id number] | | Qty: 1 on 07/02/2014 by | | Spine | MDTR | | | [id number] | | Frandy Teresa DO | | Lumbar | | | | / / | + +------+--------+ +--------+--------+--------+ | Cannulated ScrewImplanted: | | N/A: | [employer] - | | | [id number] | | Qty: 1 on 07/02/2014 by | | Spine | MEDT | | | [id number] | | Frandy Teresa DO | | [...] +--------+ +---------+--------+ | MEDICARE | MEDICA | [id number] | 02/22/20 | [phone] | | Medica [...] | Self | [birth year] | | [address] | | | al/Fam | | 1955 | [phone] | [address] [place] | | | [place] | | | 8 (Home) | [address] | + +--------+ +--------+ + + Advance Directives Patient has advance care planning documents, and code status on file. For more information, please contact:[facility] [place] [address] + + + + + | Code Status | Date | Date | Comments | | | Activated | Inactivated | | + + + + + | Full Code | 07/02/2014 | 07/05/2014 | | | | 16:37 | 19:39 | | + + + + +
--- OUTSIDE RECORDS SUMMARY | ~2019-03-19 | XMS | Encounter Summary ---
Demographics + + + | Address | [address] | | | [place] [address] | + + + | Home Phone [...] + + + | Author | [facility] | + + + | Organization | [facility] | + + + | Address | Unknown | + + + | Phone | Unavailable | + + + Support + + +---------+ + | Name | Relationship | Address | Phone | + + +---------+ + | Araceli Sibley | ECON | Unknown | | + + +---------+ + Care Team Providers + +------+ + | Care Railroad Yard Worker Name | Role | Phone | + +------+ + | Mallorie Shaffer PA-C | PCP | | + +------+ + Reason for Visit +--------+ + | Reason | Comments | +--------+ + | Other | [facility] | +--------+ + Encounter Details +--------+ + + + + | Date | Type | Department | Care Team | Description | +--------+ + + + + | 02/09/ | Documentati | [facility] | Cindy Nicholas, | Other ([facility] | | 2019 | on Only | Cardiology [place] | [facility] | [facility]) | | | | [address] | | | | | | [place] | | | | | | [address] | | | | | | [phone] | | | +--------+ + + + [...] [place] | | | | | | [address] | | | | | | | | +--------+---------+ + + + as of this encounter Visit Diagnoses Not on filein this encounter"
--- OUTSIDE RECORDS SUMMARY | ~2019-03-19 | XMS | Encounter Summary ---
Demographics + + + | Address | [address] | | | [place] [address] | + + + | Home Phone [...] [place] | | | | | [address] | | + + + + + Care Team Providers + +------+ + | Care Engineering Mgr Name | Role | Phone | [...] | Transcriptions | + + | Interface, Automatic I Threading Machine Feeder In - 10/24/2006 3:09 AM PST | | [facility] | | Road [place], [place] [address] [place] | | [facility] HospitalOPER[facility] RECORDMed Rec No.: [id number] Date: | | 10/28/1998Name: Marisol Arndt SURGEON: Lazaro Tello, | | DoreenASSISTANTS: Joes Dawson M.D.POSTOPERATIVE | | DIAGNOSIS(ES): Closure dacryocystorhinostomy [...]
--- OUTSIDE RECORDS SUMMARY | ~2019-03-19 | XMS | Clinical Summary ---
Demographics + + + | Address | [address] [facility] [address] | | | [place] [address] | + + + | Home Phone [...] [place] | | | | | [address] | | + + + + + Care Team Providers + +------+ + | Care Crime Analyst Name | Role | Phone | + +------+ + PP | Unavailable | + +------+ + Source Comments EDWARD is fully live on both [facility] and [facility] InPatient.[facility] Allergies Not on [...] | | | | | | | [address] | | + +--------+ +--------+ + +--------+ + +--------+ +--------+ + + | Guarantor Name | Accoun | Relation to | Date | Phone | Billing Address | | | t Type | Patient | of | | | | | | | | | | + +--------+ +--------+ + + | CINDY ARNDT | Person | Self [birth year] | [address] | | | al/Fam | | 1955 | [phone] | [address] [place] | | | devonte | | | 5 (Home) | [address] | + +--------+ +--------+ + +"
--- OUTSIDE RECORDS SUMMARY | ~2019-03-19 | XMS | Encounter Summary ---
Demographics + + + | Address | [address] | | | [place] [address] | + + + | Home Phone [...] + + + | Author | [facility] | + + + | Organization | [facility] | + + + | Address | Unknown | + + + | Phone | Unavailable | + + + Support + + +---------+ + | Name | Relationship | Address | Phone | + + +---------+ + | Araceli Sibley | ECON | Unknown | | + + +---------+ + Care Team Providers + +------+ + | Care Hospitality Associate Name | Role | Phone | + +------+ + | Jose Ag MD | PCP | | + +------+ + Encounter Details +--------+ + + + + | Date | Type | Department | Care Team | Description | +--------+ + + + + | 03/07/ | Telephone | SOILA Dorman | Julia, | | | 2018 | | [place] | DMITRIY Kennedy | | | | | [address] | | | | | | [place] | | | | | | [address] | | | | | | [phone] | | | +--------+ + + + [...] [place] | | | | | | [address] | | | | | | | | +--------+---------+ + + + as of this encounter Visit Diagnoses Not on filein this encounter"
--- OUTSIDE RECORDS SUMMARY | ~2019-03-19 | XMS | Clinical Summary ---
Demographics + + + | Address | [address] | | | [place] [address] | + + + | Home Phone [...] CAMPUS NO | | | | | [place] | | | | | [address] | | + + + + + Care Team Providers + +------+ + | Care Marketing Representative Name | Role | Phone [...] | | Activ | | (VITAMIN D-3) 34439 | mouth Once a week. | | [...] | | + + + +---------+------+------+-------+ | [place]-3 Fatty | Take 1,000 mg by | [...] | MEDTRONIC - | | 04/02/ | [id number] | | 5ccImplanted: Qty: 1 on | [...] N/A: | SOFAMOR | | 01/21/ | [id number] | | [id number]: Qty: 1 on | | Spine | [...] N/A: | SOFAMOR | | 01/11/ | [id number] | | [id number]: Qty: 1 on | | Spine | [...] | N/A: | SOFAMOR | | | [id number] | | 4.75 - [id number]: | | Spine | DANEK - DIV | | | 0 / / | | Qty: 4 on 07/02/2014 by | | Lumbar | MEDTRONIC | | | | | Frandy Teresa DO | | | - SFDK | | | | + +------+--------+ +--------+--------+--------+ | RodImplanted: Qty: 1 on | | N/A: | | | | [id number] | | 07/02/2014 by Frandy Teresa | | Spine | | | | 540 / | | A DO | | Lumbar | | | | / | + +------+--------+ +--------+--------+--------+ | RodImplanted: Qty: 1 on | | N/A: | MEDTROL - | | | [id number] | | 07/02/2014 by Frandy Teresa | | Spine | MDTR | | | 545 / | | DO Ronak | | Lumbar | | | | / | + +------+--------+ +--------+--------+--------+ | Screw 7.5x50mm Sextant - | | N/A: | MEDTRONIC - | | | [id number] | | [id number]: Qty: 1 on | | Spine | MEDT | | | [id number] | | 07/02/2014 by Frandy Teresa | | Lumbar | | | | / / | | DO Ronak | | | | | | | + +------+--------+ +--------+--------+--------+ | Cannulated ScrewImplanted: | | N/A: | MEDTROL - | | | [id number] | | Qty: 1 on 07/02/2014 by | | Spine | MDTR | | | [id number] | | Frandy Teresa DO | | Lumbar | | | | / / | + +------+--------+ +--------+--------+--------+ | Cannulated ScrewImplanted: | | N/A: | MEDTRONIC - | | | [id number] | | Qty: 1 on 07/02/2014 by | | Spine | MEDT | | | 95434 | | Frandy Teresa DO | | [...] +--------+ +---------+--------+ | MEDICARE | MEDICA | [id number] | 02/22/20 | [phone] | | Medica [...] Self | [birth year] | [address] | | | al/Fam | | 1955 | [phone] | [address] [place] | | | [place] | | | 8 (Home) | [address] | + +--------+ +--------+ + + Advance Directives Patient has advance care planning documents, and code status on file. For more information, please contact:[facility] [place] [address] + + + + + | Code Status | Date | Date | Comments | | | Activated | Inactivated | | + + + + + | Full Code | 07/02/2014 | 07/05/2014 | | | | 16:37 | 19:39 | | + + + + +
--- OUTSIDE RECORDS SUMMARY | ~2019-03-19 | XMS | Encounter Summary ---
Demographics + + + | Address | [address] [facility] [address] | | | [place] [address] | + + + | Home Phone [...] [place] | | | | | [address] | | + + + + + Care Team Providers + +------+ + | Care Program Manager Environmental Planning Name | Role | Phone | + [...] | Transcriptions | + + | Interface, Tobacco Dipper In - 11/04/2006 3:03 AM PST | | [address] | | [place], [place] [address] [facility] and | | ClinicsOPERATION RECORDMed [...] skin retractor was put in place. The [place] elevators wereused to separate the | | [...]
--- OUTSIDE RECORDS SUMMARY | ~2019-03-19 | XMS | Encounter Summary ---
Demographics + + + | Address | [address] | | | [place] [address] | + + + | Home Phone [...] + + + | Author | [facility] | + + + | Organization | [facility] | + + + | Address | Unknown | + + + | Phone | Unavailable | + + + Support + + +---------+ + | Name | Relationship | Address | Phone | + + +---------+ + | Araceli Sibley | ECON | Unknown | | + + +---------+ + Care Team Providers + +------+ + | Care Boxing Instructor Name | Role | Phone | [...] | | | | | [place] [address] | | | | | | [phone] | | | +--------+ + + + [...] [place] | | | | | | [address] | | | | | | | | +--------+---------+ + + + as of this encounter Visit Diagnoses Not on filein this encounter"
--- OUTSIDE RECORDS SUMMARY | ~2019-03-19 | XMS | Encounter Summary ---
Demographics + + + | Address | [address] [facility] [address] | | | [place] [address] | + + + | Home Phone [...] Author + + + | Author | [facility] | + + + | Organization | [facility] | + + + | Address | Unknown | + + + | Phone | Unavailable | + + + Support + + + + + | Name | Relationship | Address | Phone | + + + + + | Kelsy Bautista | ECON | [address] | | | | | [place] | | | | | [address] | | + + + + + Care Team Providers + +------+ + | Care Internet Technology Manager Name | Role | Phone | [...] | | | | | | [place] [address] | | | | | | [phone] | | | | | | | [...] in | | | | | | [place] with a | | | | | [...] | | | | | | Laboratory, [place], | | | | | | Steele, delivered | | | | | | [...] by | | | | | | mnjtgutiBwv-Jcc-X: | | | | | | Increased [...] unohistochemistryC-1: | | | | | | [id number] | | | | | | stain [...] | | | | cs determined by [facility] | | | | [...] [facility] | [address] | [place] [address] | | | PATHOLOGY | [address] | | | + + + + + documented in this encounter Visit Diagnoses Not on filedocumented in this encounter
--- OUTSIDE RECORDS SUMMARY | ~2019-03-19 | XMS | Encounter Summary ---
Demographics + + + | Address | [address] | | | [place] [address] | + + + | Home Phone [...] + + + | Author | [facility] | + + + | Organization | [facility] | + + + | Address | Unknown | + + + | Phone | Unavailable | + + + Support + + +---------+ + | Name | Relationship | Address | Phone | + + +---------+ + | Araceli Sibley | ECON | Unknown | | + + +---------+ + Care Team Providers + +------+ + | Care Workforce Development Program Director Name | Role | Phone [...] [place] | | | | | | [address] | | | | | | [phone] | | | +--------+ + + + [...] DO - 03/01/2019 11:59 PM PDT Cardiac Machine Finisher Date of Event Monitor: 03/01/19 Referring Physician: [...] [place] | | | | | | [phone] | | | | | | | | +--------+---------+ + + + as of this encounter Visit Diagnoses + + | Diagnosis | + + | Palpitation - Primary | + + | Palpitations | + +
--- OUTSIDE RECORDS SUMMARY | ~2019-03-19 | XMS | Encounter Summary ---
Demographics + + + | Address | [address] [facility] [address] | | | [place] [address] | + + + | Home Phone [...] [place] | | | | | [address] | | + + + + + Care Team Providers + +------+ + | Care Aircraft Instrument Repairer Name | Role | Phone [...] | Transcriptions | + + | Interface, Cash Register Balancer In - 11/04/2006 3:03 AM PST | | [address] | | [place], [place] [address] [facility] [...] skin retractor was put in place. The [place] elevators wereused to separate the | | [...]
[~2019-03-19 19:33] MED LIST changes: +CLONAZEPAM0.5 MG PO
--- OUTSIDE RECORDS SUMMARY | 2019-03-19 19:36 | XMS ---
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 No recent Security Events currently on file CRITERIA MET - [facility] - Has Care Guidelines - PDMP - [facility] - 2 Visits in 30 Days CARE PROVIDERS Kenny Palafox DO [facility] Current PHONE: Unknown Jose Ag [facility] 01/31/2019-Current PHONE: Unknown [facility] Provider Current PHONE: [phone] Guidelines Source: [facility] Radha Negrete Guidelines Date: 03/13/2019 Care Coordination: Mental health services are being provided by [employer].\T\nbsp; Please contact [employer] with mental health concerns.\T\nbsp; [facility]: [phone]\T\nbsp; [facility]: [phone]. Care History Medical/Surgical 01/31/2019 [facility] - Patient is currently established with [facility]. If patient is seen in the ED during business hours. Please contact CHWs at [facility]. Care Recommendation: This patient has had 5 or more Emergency Department visits in the last 12 months.\T\nbsp; Patient requires education on the scope and purpose of the ED as an acute care provider not a Primary Care Provider and should not be utilized for chronic conditions.\T\nbsp; These are guidelines and the provider should exercise clinical judgment when providing care. 01/12/2019 [facility] - CHW RECEIVED ED CASE MANAGEMENT CONSULT- HELP PATIENT WITH PCP SET UP. - PATIENT HAS AN ED FOLLOW UP VISIT WITH DR AG ON 01/17/19. - CHW SPOKE WITH CARMEN AT THE CLINIC -PATIENT NEEDS TO SIGN AN LORRI TO RELEASE RECORDS FROM [employer] WITH CURRENT MEDICATIONS LISTED FOR DR AG TO REVIEW IN ORDER TO SET UP AN ESTABLISHING CARE APT. - A TE WAS SENT TO ESCOBAR ACEVEDO AT [facility] TO HELP PATIENT WITH LORRI PROCESS AND [employer] RECORDS. E.D. VISIT COUNT (12 MO.) 4 [facility]. TOTAL 4 NOTE: Visits indicate total known visits. ED/UCC VISIT TRACKING (12 MO.) 03/19/2019 19:33 [facility] [place] TYPE: Emergency COMPLAINT: - MEDICAL CLEARANCE 03/07/2019 10:34 [facility] [place] TYPE: Emergency COMPLAINT: - CHEST PAIN DIAGNOSES: - Essential (primary) hypertension - Gastro-esophageal reflux disease without esophagitis - Edema, unspecified - Allergy status to sulfonamides status - Allergy status to other drugs, medicaments and biological substances status - Personal history of transient ischemic attack (TIA), and cerebral infarction without residual deficits - Precordial pain 01/30/2019 16:57 [facility] [place] TYPE: Emergency COMPLAINT: - CHEST PAIN DIAGNOSES: - Essential (primary) hypertension - 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 (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 of 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 - Other snf (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 - Allergy status to sulfonamides status - Gastro-esophageal reflux disease without esophagitis - Allergy status to other antibiotic agents status - Personal history of transient ischemic attack (TIA), and cerebral infarction without residual deficits - Other chest pain - Cough - Allergy status to other drugs, medicaments and biological substances status 01/09/2019 12:[address] [facility] [place] TYPE: Emergency COMPLAINT: - MEDICAL CLEARANCE DIAGNOSES: - Gastro-esophageal reflux disease without esophagitis - Bariatric surgery status - shelter (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 - 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 (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 - Suicidal ideations - [...] visits to display in this time frame [email or web address]
[2019-03-19] MEDS ORDERED: ZOFRAN4 MG PO (19:47)
[2019-03-19] MEDS ORDERED: FUROSEMIDE40 MG PO (19:48)
[2019-03-19] MEDS ORDERED: EUTHYROX150 MCG PO (19:48)
== END 2019-03-20 00:53 | disposition home or self-care (01) ==
LOC: ED 19:33
DX: R44.0 Auditory hallucinations (principal); R44.1 Visual hallucinations; F25.9 Schizoaffective disorder, unspecified; I10 Essential (primary) hypertension; Z86.73 Personal history of transient ischemic attack (TIA), and cerebral infarction without residual deficits; Z90.49 Acquired absence of other specified parts of digestive tract; Z88.2 Allergy status to sulfonamides; Z88.5 Allergy status to narcotic agent; Z88.8 Allergy status to other drugs, medicaments and biological substances; Z79.899 Other long term (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
CPT/HCPCS: 80053; 80164; 80176; 81001; 84439; 84443; 85025; 99285; G0480

== ENCOUNTER 2019-03-23 15:44 | Emergency (ER) | payer MEDICARE ==
[~2019-03-23] VITALS: Ht 170.2 cm; Wt 108.9 kg
--- OUTSIDE RECORDS SUMMARY | ~2019-03-23 | XMS | Encounter Summary ---
Demographics + + + | Address | [address] | | | [place] [address] | + + + | Home Phone [...] + + + | Author | [facility] | + + + | Organization | [facility] | + + + | Address | Unknown | + + + | Phone | Unavailable | + + + Support + + +---------+ + | Name | Relationship | Address | Phone | + + +---------+ + | Araceli Sibley | ECON | Unknown | | + + +---------+ + Care Team Providers + +------+ + | Care School Laboratory Technician Name | Role | Phone | + +------+ + | Mallorie Shaffer PA-C | PCP | | + +------+ + Reason for Visit +--------+ + | Reason | Comments | +--------+ + | Other | [facility] | +--------+ + Encounter Details +--------+ + + + + | Date | Type | Department | Care Team | Description | +--------+ + + + + | 02/09/ | Documentati | SOILA Dorman | Cindy Nicholas, | Other ([facility] | | 2019 | on Only | Cardiology [place] | [facility] | [facility]) | | | | [address] | | | | | | [place] | | | | | | [address] | | | | | | [phone] | | | +--------+ + + + [...] [place] | | | | | | [address] | | | | | | | | +--------+---------+ + + + as of this encounter Visit Diagnoses Not on filein this encounter"
--- OUTSIDE RECORDS SUMMARY | ~2019-03-23 | XMS | Encounter Summary ---
Demographics + + + | Address | [address] | | | [place] [address] | + + + | Home Phone | | + + + | Preferred Language | Unknown | + + + | Marital Status | Single | + + + | Yarsanism Affiliation | Unknown | + + + | Race | Unknown | + + + | Ethnic Group | Unknown | + + + Author + + + | Author | [facility] | + + + | Organization | [facility] [employer] [facility] | + + + | Address | Unknown | + + + | Phone | Unavailable | + + + Support + + +---------+ + | Name | Relationship | Address | Phone | + + +---------+ + | Araceli Sibley | ECON | Unknown | | + + +---------+ + Care Team Providers + +------+ + | Care Health Services Rn Name | Role | Phone | + +------+ + | Jose Ag MD | PCP | | + +------+ + Encounter Details +--------+ + + + + | Date | Type | Department | Care Team | Description | +--------+ + + + + | 03/07/ | Telephone | SOILA Dorman | [place], | | | 2018 | | [place] | DMITRIY [place] | | | | | [address] | | | | | | [place] | | | | | | [address] | | | | | | [phone] | | | +--------+ + + + [...] [place] | | | | | | [address] | | | | | | | | +--------+---------+ + + + as of this encounter Visit Diagnoses Not on filein this encounter"
--- OUTSIDE RECORDS SUMMARY | ~2019-03-23 | XMS | Encounter Summary ---
Demographics + + + | Address | [address] [facility] [address] | | | [place] [address] | + + + | Home Phone | | + + + | Preferred Language | Unknown | + + + | Marital Status | Single | + + + | Hindu Affiliation | Unknown | + + + | Race | White | + + + | Ethnic Group | Not or | + + + Author + + + | Author | [facility] | + + + | Organization | [facility] | + + + | Address | Unknown | + + + | Phone | Unavailable | + + + Support + + + + + | Name | Relationship | Address | Phone | + + + + + | Kelsy Bautista | ECON | [address] | | | | | [place] | | | | | [address] | | + + + + + Care Team Providers + +------+ + | Care Last Greaser Name | Role | Phone | + +------+ + PCP | Unavailable | + +------+ + Encounter Details +--------+ + + + + | Date | Type | Department | Care Team | Description | +--------+ + + + + | 07/03/ | Results | Registration [id number] | | | | 1996 | Only | [address] | | | | | | [facility] Mailcode: | | | | | | [id number] [place], [place] | | | | | | [address] | | | | | | [phone] | | | +--------+ + + + [...] | + + + + + | [facility] | [address] | [place] [address] | | | PATHOLOGY | [address] [...] | | | | | | ABSCESSTest | | | | | | Ordered | | | | | | FUNGUS CULTUREOrdering | | | | | | Loc | | | | | | 717Spec Set Up | | | | | | Date 07/03Spec Set Up | | | | | | Time 13:36Specimen | | | | | | Type FLUIDSou | | | | | | rce Body Site | | | | | | BREASTReport | | | | | | Status FINALP | | | | | | relim | | | | | | Result NO | | | | | | FUNGUS ISOLATED IN 2 | | | | | | WEEKSCulture | | | | | | Result NO FUNGUS | | | | | | ISOLATED IN 4 WEEKSDate | | | | | | Of Final | | | | | | Re [id number] | | | | + + + + + + + + | Specimen | + + | | + + + + + + + | Performing | Address | City/State/Zipcode | Phone Number | | Organization | | | | + + + + + | [facility] | [address] | [place] [address] | | | PATHOLOGY | [address] [...] | | RESULT | AFB SEENStain Used | | | | | | AFB | | | | | | FLUOROCHROMEDiagnosis | | | | | | RULE | | | | | | OUT BREAST ABSCESSTest | | | | | | Ordered ACID | | | | | | FAST BACILLI | | | | | | CULTUREOrdering | | | | | | Loc | | | | | | 717Spec Set Up | | | | | | Date 07/03Spec Set Up | | | | | | Time 13:36Specimen | | | | | | Type FLUIDSou | | | | | | rce Body Site | | | | | | BREASTReport | | | | | | Status FINALP | | | | | | relim | | | | | | Result NO AFB | | | | | | ISOLATED IN 4 | | | | | | WEEKSCulture | | | | | | Result NO AFB | | | | | | ISOLATED IN 6 WEEKSDate | | | | | | Of Final | | | | | | Re [id number] | | | | + + + + + + + + | Specimen | + + | | + + + + + + + | Performing | Address | City/State/Zipcode | Phone Number | | Organization | | | | + + + + + | [facility] | [address] | [place] [address] | | | PATHOLOGY | [address] [...] | | | | | | ABSCESSTest | | | | | | Ordered | | | | | | FUNGUS CULTUREOrdering | | | | | | Loc | | | | | | 717Spec Set Up | | | | | | Date 07/03Spec Set Up | | | | | | Time 13:17Specimen | | | | | | Type FLUIDSou | | | | | | rce Body Site | | | | | | BREASTReport | | | | | | Status FINALP | | | | | | relim | | | | | | Result NO | | | | | | FUNGUS ISOLATED IN 2 | | | | | | WEEKSCulture | | | | | | Result NO FUNGUS | | | | | | ISOLATED IN 4 WEEKSDate | | | | | | Of Final | | | | | | Re [id number] | | | | + + + + + + + + | Specimen | + + | | + + + + + + + | Performing | Address | City/State/Zipcode | Phone Number | | Organization | | | | + + + + + | [facility] | [address] | [place] [address] | | | PATHOLOGY | [address] [...] | | RESULT | AFB SEENStain Used | | | | | | AFB | | | | | | FLUOROCHROMEDiagnosis | | | | | | RULE | | | | | | OUT BREAST ABSCESSTest | | | | | | Ordered ACID | | | | | | FAST BACILLI | | | | | | CULTUREOrdering | | | | | | Loc | | | | | | 717Spec Set Up | | | | | | Date 07/03Spec Set Up | | | | | | Time 13:17Specimen | | | | | | Type FLUIDSou | | | | | | rce Body Site | | | | | | BREASTReport | | | | | | Status FINALP | | | | | | relim | | | | | | Result NO AFB | | | | | | ISOLATED IN 4 | | | | | | WEEKSCulture | | | | | | Result NO AFB | | | | | | ISOLATED IN 6 WEEKSDate | | | | | | Of Final | | | | | | Re [id number] | | | | + + + + + + + + | Specimen | + + | | + + + + + + + | Performing | Address | City/State/Zipcode | Phone Number | | Organization | | | | + + + + + | [facility] | [address] | [place] [address] | | | PATHOLOGY | [address] | | | + + + + + documented in this encounter Visit Diagnoses Not on filedocumented in this encounter"
--- OUTSIDE RECORDS SUMMARY | ~2019-03-23 | XMS | Clinical Summary ---
Demographics + + + | Address | [address] | | | [place] [address] | + + + | Home Phone [...] HOSPITAL NO | | | | | [place] | | | | | [address] | | + + + + + Care Team Providers + +------+ + | Care Collar Closer Lockstitch Name | Role | Phone | + [...] | | Activ | | (VITAMIN D-3) 45459 | mouth Once a week. | | [...] | | + + + +---------+------+------+-------+ | [place]-3 Fatty | Take 1,000 mg by | [...] | MEDTRONIC - | | 04/02/ | [id number] | | 5ccImplanted: Qty: 1 on | [...] N/A: | SOFAMOR | | 01/21/ | [id number] | | [id number]: Qty: 1 on | | Spine | [...] N/A: | SOFAMOR | | 01/11/ | 385594 | | [id number]: Qty: 1 on | | Spine | [...] | N/A: | SOFAMOR | | | 164299 | | 4.75 - [id number]: | | Spine | DANEK - DIV | | | 0 / / | | Qty: 4 on 07/02/2014 by | | Lumbar | [employer] | | | | | Frandy Teresa DO | | | - SFDK | | | | + +------+--------+ +--------+--------+--------+ | RodImplanted: Qty: 1 on | | N/A: | | | | [id number] | | 07/02/2014 by Frandy Teresa | | Spine | | | | 540 / | | A DO | | Lumbar | | | | / | + +------+--------+ +--------+--------+--------+ | RodImplanted: Qty: 1 on | | N/A: | MEDTROL - | | | [id number] | | 07/02/2014 by Frandy Teresa | | Spine | MDTR | | | 545 / | | DO Ronak | | Lumbar | | | | / | + +------+--------+ +--------+--------+--------+ | Screw 7.5x50mm Sextant - | | N/A: | [employer]IC - | | | [id number] | | [id number]: Qty: 1 on | | Spine | MEDT | | | [id number] | | 07/02/2014 by Frandy Teresa | | Lumbar | | | | / / | | DO Ronak | | | | | | | + +------+--------+ +--------+--------+--------+ | Cannulated ScrewImplanted: | | N/A: | MEDTROL - | | | [id number] | | Qty: 1 on 07/02/2014 by | | Spine | MDTR | | | [id number] | | Frandy Teresa DO | | Lumbar | | | | / / | + +------+--------+ +--------+--------+--------+ | Cannulated ScrewImplanted: | | N/A: | MEDTRONIC - | | | [id number] | | Qty: 1 on 07/02/2014 by | | Spine | MEDT | | | [id number] | | Frandy Teresa DO | | [...] +--------+ +---------+--------+ | MEDICARE | MEDICA | [id number] | 02/22/20 | [phone] | | Medica [...] | Self | [birth year] | [address] | | | al/Fam | | 1955 | [phone] | [address] [place] | | | devonte | | | [address] (Home) | [address] | + +--------+ +--------+ + + Advance Directives Patient has advance care planning documents, and code status on file. For more information, please contact:[facility] and [facility] [place] [address] + + + + + | Code Status | Date | Date | Comments | | | Activated | Inactivated | | + + + + + | Full Code | 07/02/2014 | 07/05/2014 | | | | 16:37 | 19:39 | | + + + + +
--- OUTSIDE RECORDS SUMMARY | ~2019-03-23 | XMS | Encounter Summary ---
Demographics + + + | Address | [address] | | | [place] [address] | + + + | Home Phone [...] + + + | Author | [facility] | + + + | Organization | [facility] | + + + | Address | Unknown | + + + | Phone | Unavailable | + + + Support + + +---------+ + | Name | Relationship | Address | Phone | + + +---------+ + | Araceli Sibley | ECON | Unknown | | + + +---------+ + Care Team Providers + +------+ + | Care Senior Drafter Name | Role | Phone | + +------+ + | Jose Ag MD | PCP | | + +------+ + Reason for Referral Nuclear Medicine (Routine) + +--------+ + + + + | Status | Reason | Specialty | Diagnoses / | Referred By | Referred To | | | | | Procedures | Contact | Contact | + +--------+ + + + + | Pending | | | Diagnoses | Nicholas, | | | Review | | | Chest pain, | DO Desiree | | | | | | unspecified | [address] | | | | | | type | [address] | | | | | | Procedures | HAN[facility] | | | | | | Nuclear | [place] | | | | | | stress test | [address] | | | | | | | Phone: | | | | | | | [phone] | | | | | | | Fax: | | | | | | | [phone] | | + +--------+ + + + + Reason for Visit + + + | Reason | Comments | + + + | Establish Care | NEW PATIENT | + + + Encounter Details +--------+---------+ + + + | Date | Type | Department | Care Team | Description | +--------+---------+ + + + | 02/22/ | Office | [facility] | Desiree Peterson DO | Chest pain, | | 2019 | Visit | Cardiology [place] | [address] | unspecified type | | | | [address] | [facility] [place] | (Primary Dx); | | | | [place] [address] | [phone] | Palpitation; | | | | [place] [address] | | Hypertension, | | | | [phone] | | unspecified type; | | | [...] whether | | | | | | technician terminal and repeater insulin | | | | | | use (HCC) | +--------+---------+ + + + Social [...] + + + as of this encounter Last Filed Vital [...] PM PDT | + + + + in this encounter Progress Notes Desiree Peterson DO - 02/22/2019 1:40 PM PDTFormatting of this note may be different from porfirio muir. [facility] Cardiology Cardiology Consult Note Reason for Consultation: Chest Pain Requesting Physician: Mallorie Shaffer History Obtained From: patient HISTORY OF PRESENT ILLNESS: Cardiac Problem List HTN HLD Bradycardia Non Cardiac Problem List Hepatosteatosis Obesity ROGERS DDD Schizophrenia Bipolar disorder GERD DM II Hypothyroidism The patient is a 63yo female who presents to the cardiology office for initial consultation regarding patient. The patient reports that she has been experiencing chest pains intermit tently since about 2010. Are described as a crushing heaviness with radiation to the left a rm. About 3 times per week. She denies any specific aggravating factors. She reports that in the past she has had alleviation with sublingual nitroglycerin. The pain typically last s about 3 to 4 minutes. Patient reports that she is an active individual and does not parta ke in exercise. She recently got a Chihuahua and has been walking him more regularly. She denies any replication of the chest pain with this activity. She does occasionally get shor tness of breath with activity. She also reports [...] lower extremity swelling but denies any orthopnea. Review of Systems Constitutional: positive for fatigue. [...] Home Medications Outpatient Encounter Prescriptions as of 02/22/2019 Medication Sig Dispense Refill acetaminophen (MAPAP) 325 MG tablet Take 325 mg by mouth every 6 (six) hours as needed for Pain. albuterol (PROVENTIL HFA;VENTOLIN HFA) 108 (90 Base) MCG/ACT inhaler Inhale 2 puffs int o the lungs every 4 (four) hours as needed for Wheezing. atenolol (TENORMIN) 50 MG tablet Take 50 mg by mouth daily. Blood Glucose Monitoring Suppl (Corpora VERIO FLEX SYSTEM) w/Device KIT by Does not ap ply route. Calcium Carbonate Antacid 1000 MG tablet Take 1,000 mg by mouth 3 (three) times daily. Calcium Carbonate-Vit D-Min (CALCIUM 1200 PO) Take by mouth. Cholecalciferol (VITAMIN D3) 2000 units TABS Take by mouth. clonazePAM (KLONOPIN) 0.5 MG tablet Take 0.5 mg by mouth 2 (two) times daily as needed for Anxiety. divalproex (DEPAKOTE) 500 MG EC tablet Take 500 mg by mouth 3 (three) times daily. hydrOXYzine (VISTARIL) 50 MG capsule Take 100 mg by mouth 3 (three) times daily as need ed for Itching. loperamide (IMODIUM) 2 MG capsule Take 2 mg by mouth 4 (four) times daily as needed for Diarrhea. OLANZapine (ZYPREXA) 10 MG tablet Take 10 mg by mouth nightly. PARoxetine (PAXIL) 20 MG tablet Take 20 mg by mouth every morning. SUPER B COMPLEX/C PO Take by mouth daily. zaleplon (SONATA) 10 MG capsule Take 10 mg by mouth nightly. [DISCONTINUED] ARIPiprazole (ABILIFY) 20 MG tablet Take 20 mg by mouth daily. [DISCONTINUED] busPIRone (BUSPAR) 15 MG tablet Take 15 mg by mouth 3 (three) times adelfo y. [DISCONTINUED] cloNIDine (CATAPRES) 0.1 MG tablet Take 0.1 mg by mouth 2 (two) times da devonte. [DISCONTINUED] mirtazapine (REMERON) 15 mg tablet Take 15 mg by mouth nightly. No facility-administered encounter medications on file as of 02/22/2019. Allergies Allergies Allergen Reactions Sulfa Antibiotics Hives [...] Narrative No narrative on file PHYSICAL EXAM Vital Signs: BP 120/70 (BP Location: Right upper arm, Patient Position: Sitting) | Pulse 8 8 | Ht 1.702 m (5' 7") | Wt 99.8 kg (220 lb) | SpO2 94% | BMI 34.46 kg/m Physical Exam GENERAL: Obese body habitus, in [...] criteria for left ventricular hypertrophy Last Echo: 10/03/15 Conclusions Marked sinus bradycardia with Premature ventricular complexes Left ventricular systolic function is normal. All four cardiac valves are normal in structure and function. There is no prior echocardiogram noted for this patient. Last stress test: Last cath: 05/24/14 CONCLUSIONS: 1. Normal coronary arteries. 2. Moderate left ventricular diastolic dysfunction. Carotid US: AAA screening: Lower extremity US: OTHERS: ASSESSMENT & PLAN 1. Chest pain 2. Palpitations 3. HTN 4. HLD 5. Bradycardia 6. Obesity 7. ROGERS 8. DDD 9. Schizophrenia/Bipolar disorder 10. DM II 11. Hypothyroidism -The patient is a 63-year-old female who presents to the cardiology office for initial cons ultation regarding chest pain palpitations. Her chest pains are fairly atypical in nature. She had a cath in 2013 which was normal but she does have several risk factors for coronary artery disease. She has also been getting palpitations, she reports that this was worked up on prior monitoring in 2010, I do not have this available. Will repeat a monitor since she has had worsening of her symptoms. She denies any syncope. -Obtain a nuclear exercise stress test -Obtain a 1 week event monitor -Continue atenolol 50 mg by mouth daily -Follow-up in 2 months Thank you for allowing me to participate in the care of this patient. Primary Care Physician: Jose Peterson DO 02/22/2019in this encounter Plan of Treatment +--------+---------+ + + + | Date | Type | Specialty | Care Team | Description | +--------+---------+ + + + | 05/10/ | Office | Cardiology | Desiree Peterson DO | | | 2019 | Visit | | [address] | | | | | | [place] | | | | | | [id number] | | | | | | | | +--------+---------+ + + + + +--------+ + + | Name | Priori | Associated Diagnoses | Order Schedule | | | ty | | | + +--------+ + + | Nuclear stress test | Routin | Chest pain, | Expected: | | | e | unspecified type | 03/01/2019, Expires: | | | | | 08/25/2019 | + +--------+ + + | CRD Cardiac Event Monitor | Routin | Palpitation | Expected: | | | e | | 03/01/2019, Expires: | | | | | 02/23/2020 | + +--------+ + + as of this encounter Procedures + +--------+ [...] section. | + +--------+ + + + in this encounter Results EKG STANDARD 12 LEAD (02/22/2019 1:49 PM) + + + + + | Component | Value | Ref Range | Performed At | + + + + + | Ventricular Rate | 82 | BPM | [facility] | + + + + + [...] + + + + | Calculated P [place] | 60 | degrees | [facility] | + + + + + | Calculated R [place] | -21 | degrees | [facility] | + + + + + | Calculated T [place] | 9 | degrees | [facility] | + + + + + | Diagnosis | Please refer to | | [facility] | | | Providers office visit | | | | | note for Providers | | | | | Interpretation.Confirmed | | | | | by ICA Miranda Read Only, | | | | | ICA Ravi ([id number]), | | | | | editor book Mc Manning | | | | | ([id number]) on 02/22/2019 | | | | | 3:03:19 PM | | | + + + + + + + + + + | Performing | Address | City/State/Zipcode | Phone Number | | Organization | | | | + + + + + | [facility] | [address] | [place] [address] | | + + + + + in this encounter Visit Diagnoses + + | Diagnosis | + + | Chest pain, unspecified type - Primary | + + | Palpitation | + + | Palpitations | + + | Hypertension, unspecified type | + + | Hyperlipidemia, unspecified hyperlipidemia type | + + | Obesity, unspecified classification, unspecified obesity type, unspecified whether | | serious comorbidity present | + + | ROGERS (obstructive sleep apnea) | + + | Obstructive sleep apnea (adult) (pediatric) | + + | Controlled type 2 diabetes mellitus without complication, unspecified whether long | | term insulin use (HCC) | + +
--- OUTSIDE RECORDS SUMMARY | ~2019-03-23 | XMS | Encounter Summary ---
Demographics + + + | Address | [address] | | | [place] [address] | + + + | Home Phone [...] + + + | Author | [facility] | + + + | Organization | [facility] | + + + | Address [...] | | | | stress test | [id number] | | | | | | | Phone: | | | | | | | [phone] | | | | | | | Fax: | | | | | | | [phone] | | + +--------+ + + + + Reason for Visit + + + | Reason | Comments | + + + | Establish Care | NEW PATIENT | + + + Encounter Details +--------+---------+ + + + | Date | Type | Department | Care Team | Description | +--------+---------+ + + + | 02/22/ | Office | [facility] | Desiree Peterson DO | Chest pain, | | 2019 | Visit | Cardiology [place] | [address] | unspecified type | | | | [address] | [facility] [place] | (Primary Dx); | | | | [place] [address] | [phone] | Palpitation; | | | | [place] [address] | | Hypertension, | | | | [phone] | | unspecified type; | | | [...] whether | | | | | | 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 [facility] Cardiology Cardiology Consult Note Reason for Consultation: [...] by mouth daily. Blood Glucose Monitoring Suppl (Nexgence VERIO FLEX SYSTEM) w/Device KIT by Does [...] [place] | | | | | | [id number] | | | | | | | [...] + + + + | Calculated P [place] | 60 | degrees | [facility] | + + + + + | Calculated R [place] | -21 | degrees | [facility] | + + + + + | Calculated T [place] | 9 | degrees | [facility] | + + + + + | Diagnosis | Please refer to | | [facility] | | | Providers office visit | | | | | note for Providers | | | | | Interpretation.Confirmed | | | | | by [facility] [place] Read Only, | | | | | ICA Ravi ([id number]), | | | | | supervising film or videotape editor Mc Manning | | | | | ([id number]) on 02/22/2019 | | | | | 3:03:19 PM | | | + + + + + + + + + + | Performing | Address | City/State/Zipcode | Phone Number | | Organization | | | | + + + + + | [facility] | [address] | [place] [address] | | + + + + + [...]
--- OUTSIDE RECORDS SUMMARY | ~2019-03-23 | XMS | Encounter Summary ---
Demographics + + + | Address | [address] | | | [place] [address] | + + + | Home Phone [...] + + + | Author | [facility] | + + + | Organization | [facility] | + + + | Address | Unknown | + + + | Phone | Unavailable | + + + Support + + +---------+ + | Name | Relationship | Address | Phone | + + +---------+ + | Araceli Sibley | ECON | Unknown | | + + +---------+ + Care Team Providers + +------+ + | Care Anatomy Teacher Name | Role | Phone | + +------+ + | Jose Ag MD | PCP | | + +------+ + Reason for Visit +--------+ + | Reason | Comments | +--------+ + | Other | 01-30-19 [address]era. | +--------+ + Encounter Details +--------+ + + + + | Date | Type | Department | Care Team | Description | +--------+ + + + + | 03/01/ | Documentati | SOILA Dorman | Ashley Chávez | Talia ([address] | | 2019 | on Only | Cardiology [place] | TONG Abad | [address] Najera. ) | | | | [address] | | | | | | [address] | | | | | | [place] [address] | | | | | | [phone] | | | +--------+ + + + [...] [place] | | | | | | [address] | | | | | | | | +--------+---------+ + + + as of this encounter Visit Diagnoses Not on filein this encounter"
--- OUTSIDE RECORDS SUMMARY | ~2019-03-23 | XMS | Encounter Summary ---
Demographics + + + | Address | [address] | | | [place] [address] | + + + | Home Phone [...] Author + + + | Author | [facility] | + + + | Organization | [facility] | + + + | Address | Unknown | + + + | Phone | Unavailable | + + + Support + + + + + | Name | Relationship | Address | Phone | + + + + + | Kelsy Bautista | ECON | [address] | | | | | [place] | | | | | [address] | | + + + + + Care Team Providers + +------+ + | Care Commercial Real Estate Appraiser Name | Role | Phone | [...] Clinic | | | | | | [facility], [address] | | | | | | [place], [place] | | | | | | [address] | | | | | | [phone] | | | +--------+ + + + [...] as of this encounter Progress Notes Interface, Brush Polisher In - 12/11/2006 5:03 AM [facility] DATE: 07/03/97 INFECTIOUS DISEASE [...]
--- OUTSIDE RECORDS SUMMARY | ~2019-03-23 | XMS | Encounter Summary ---
Demographics + + + | Address | [address] | | | [place] [address] | + + + | Home Phone [...] Author + + + | Author | [facility] | + + + | Organization | [facility] | + + + | Address | Unknown | + + + | Phone | Unavailable | + + + Support + + + + + | Name | Relationship | Address | Phone | + + + + + | Kelsy Bautista | ECON | [address] | | | | | [place] | | | | | [address] | | + + + + + Care Team Providers + +------+ + | Care Heavy Truck Mechanic Name | Role | Phone [...] | | | | | [address] | | | | | | [address] [place], [place] | | | | | | [address] | | | +--------+ + + + [...]
--- OUTSIDE RECORDS SUMMARY | ~2019-03-23 | XMS | Encounter Summary ---
Demographics + + + | Address | [address] | | | [place] [address] | + + + | Home Phone | | + + + | Preferred Language | Unknown | + + + | Marital Status | Single | + + + | Congregation Affiliation | Unknown | + + + | Race | Unknown | + + + | Ethnic Group | Unknown | + + + Author + + + | Author | [facility] | + + + | Organization | [facility] | + + + | Address | Unknown | + + + | Phone | Unavailable | + + + Support + + +---------+ + | Name | Relationship | Address | Phone | + + +---------+ + | Araceli Sibley | ECON | Unknown | | + + +---------+ + Care Team Providers + +------+ + | Care Hair Machine Operator Name | Role | Phone | + +------+ + | Mallorie Shaffer PA-C | PCP | | + +------+ + Reason for Visit +--------+ + | Reason | Comments | +--------+ + | Other | [facility] | +--------+ + Encounter Details +--------+ + + + + | Date | Type | Department | Care Team | Description | +--------+ + + + + | 02/09/ | Documentati | [facility] | Cindy Nicholas, | Other ([facility] | | 2019 | on Only | Cardiology [place] | [facility] | [facility]) | | | | [address] | | | | | | [place] | | | | | | [address] | | | | | | [phone] | | | +--------+ + + + [...] [place] | | | | | | [address] | | | | | | | | +--------+---------+ + + + as of this encounter Visit Diagnoses Not on filein this encounter"
--- OUTSIDE RECORDS SUMMARY | ~2019-03-23 | XMS | Encounter Summary ---
Demographics + + + | Address | [address] | | | [place] [address] | + + + | Home Phone | | + + + | Preferred Language | Unknown | + + + | Marital Status | Single | + + + | Restorationism Affiliation | Unknown | + + + [...] [place] | | | | | [address] | | + + + + + Care Team Providers + +------+ + | Care Independent Jeweler Name | Role | Phone | + [...] | Transcriptions | + + | Interface, Health Insurance Agent In - 11/04/2006 3:03 AM PST | | [address] | | [place], [place] [address] [facility] | | ClinicsOPERATION RECORDMed Rec No.: [...] skin retractor was put in place. The [place] elevators wereused to separate the | | [...] case was now removed. A | | Nicohlas drillwas used to make a bony window [...]
--- OUTSIDE RECORDS SUMMARY | ~2019-03-23 | XMS | Clinical Summary ---
Demographics + + + | Address | [address] | | | [place] [address] | + + + | Home Phone [...] [place] | | | | | [address] | | + + + + + Care Team Providers + +------+ + | Care Worship Leader Name | Role | Phone | [...] | | Activ | | (VITAMIN D-3) [address]2385 | mouth Once a week. | | [...] | | + + + +---------+------+------+-------+ | Taft-3 Fatty | Take 1,000 mg by | [...] | MEDTRONIC - | | 04/02/ | [id number] | | 5ccImplanted: Qty: 1 on | [...] N/A: | SOFAMOR | | 01/21/ | [id number] | | [id number]: Qty: 1 on | | Spine | [...] N/A: | SOFAMOR | | 01/11/ | [id number] | | [id number]: Qty: 1 on | | Spine | [...] | N/A: | SOFAMOR | | | [id number] | | 4.75 - [id number]: | | Spine | DANEK - DIV | | | 0 / / | | Qty: 4 on 07/02/2014 by | | Lumbar | [employer] | | | | | Frandy Teresa DO | | | - SFDK | | | | + +------+--------+ +--------+--------+--------+ | RodImplanted: Qty: 1 on | | N/A: | | | | [id number] | | 07/02/2014 by Frandy Teresa | | Spine | | | | 540 / | | A DO | | Lumbar | | | | / | + +------+--------+ +--------+--------+--------+ | RodImplanted: Qty: 1 on | | N/A: | MEDTROL - | | | [id number] | | 07/02/2014 by Frandy Teresa | | Spine | MDTR | | | 545 / | | DO Ronak | | Lumbar | | | | / | + +------+--------+ +--------+--------+--------+ | Screw 7.5x50mm Sextant - | | N/A: | [employer] - | | | [id number] | | [id number]: Qty: 1 on | | Spine | MEDT | | | [id number] | | 07/02/2014 by Frandy Teresa | | Lumbar | | | | / / | | DO Ronak | | | | | | | + +------+--------+ +--------+--------+--------+ | Cannulated ScrewImplanted: | | N/A: | MEDTROL - | | | [id number] | | Qty: 1 on 07/02/2014 by | | Spine | MDTR | | | [id number] | | Frandy Teresa DO | | Lumbar | | | | / / | + +------+--------+ +--------+--------+--------+ | Cannulated ScrewImplanted: | | N/A: | MEDTR[employer] - | | | [id number] | | Qty: 1 on 07/02/2014 by | | Spine | MEDT | | | [id number] | | Frandy Teresa DO | | [...] +--------+ +---------+--------+ | MEDICARE | MEDICA | [id number] | 02/22/20 | [phone] | | Medica [...] | Self | [birth year] | [address] | | | al/Fam | | 1955 | [phone] | [address] [place] | | | [place] | | | [address] (Home) | [address] | + +--------+ +--------+ + + Advance Directives Patient has advance care planning documents, and code status on file. For more information, please contact:[facility] [place] [address] + + + + + | Code Status | Date | Date | Comments | | | Activated | Inactivated | | + + + + + | Full Code | 07/02/2014 | 07/05/2014 | | | | 16:37 | 19:39 | | + + + + +
--- OUTSIDE RECORDS SUMMARY | ~2019-03-23 | XMS | Encounter Summary ---
Demographics + + + | Address | [address] | | | [place] [address] | + + + | Home Phone | | + + + | Preferred Language | Unknown | + + + | Marital Status | Single | + + + | Restorationist Affiliation | Unknown | + + + | Race | White | + + + | Ethnic Group | Not or | + + + Author + + + | Author | [facility] | + + + | Organization | [facility] | + + + | Address | Unknown | + + + | Phone | Unavailable | + + + Support + + + + + | Name | Relationship | Address | Phone | + + + + + | Kelsy Bautista | ECON | [address] | | | | | [place] | | | | | [address] | | + + + + + Care Team Providers + +------+ + | Care Dish Cloth Inspector Name | Role | Phone | [...] Pat | | | | | | [facility] Mailcode: | | | | | | [address] [place], [place] | | | | | | [address] | | | | | | [phone] | | | +--------+ + + + [...] + + + + + | [facility] | [address] | [place] [address] | | | PATHOLOGY | [address] [...] | | | | | | [place] [id number] | | | | + + + + + + + + | Specimen | + + | | + + + + + + + | Performing | Address | City/State/Zipcode | Phone Number | | Organization | | | | + + + + + | [facility] | [address] | [place] [address] | | | PATHOLOGY | [address] [...] | | | | | | [place] [id number] | | | | + + + + + + + + | Specimen | + + | | + + + + + + + | Performing | Address | City/State/Zipcode | Phone Number | | Organization | | | | + + + + + | [facility] | [address] | [place] [address] | | | PATHOLOGY | [address] [...] | | | | | | [place] [id number] | | | | + + + + + + + + | Specimen | + + | | + + + + + + + | Performing | Address | City/State/Zipcode | Phone Number | | Organization | | | | + + + + + | [facility] | [address] | [place] [address] | | | PATHOLOGY | [address] [...] | | | | | | [place] [id number] | | | | + + + + + + + + | Specimen | + + | | + + + + + + + | Performing | Address | City/State/Zipcode | Phone Number | | Organization | | | | + + + + + | [facility] | [address] | [place] [address] | | | PATHOLOGY | [address] | | | + + + + + documented in this encounter Visit Diagnoses Not on filedocumented in this encounter"
--- OUTSIDE RECORDS SUMMARY | ~2019-03-23 | XMS | Clinical Summary ---
Demographics + + + | Address | [address] [facility] [address] [address] | | | [place] [address] | + + + | Home Phone [...] [place] | | | | | [address] | | + + + + + Care Team Providers + +------+ + | Care Plumber Assistant Name | Role | Phone | + +------+ + PP | Unavailable | + +------+ + Source Comments EDWARD is fully live on both [facility] Ambulatory and [facility] InPatient.[facility] Allergies [...] | | | | | | | [address] | | + +--------+ +--------+ + +--------+ + +--------+ +--------+ + + | Guarantor Name | Accoun | Relation to | Date | Phone | Billing Address | | | t Type | Patient | of | | | | | | | | | | + +--------+ +--------+ + + | CINDY ARNDT | Person | Self [birth year] [address] | | | al/Fam | | 1955 | [phone] | [address] [place] | | | [place] | | | 5 (Home) | [address] | + +--------+ +--------+ + +"
--- OUTSIDE RECORDS SUMMARY | ~2019-03-23 | XMS | Encounter Summary ---
Demographics + + + | Address | [address] [address] | | | [place] [address] | + + + | Home Phone [...] Author + + + | Author | [facility] | + + + | Organization | [facility] | + + + | Address | Unknown | + + + | Phone | Unavailable | + + + Support + + + + + | Name | Relationship | Address | Phone | + + + + + | Kelsy Bautista | ECON | [address] | | | | | [place] | | | | | [address] | | + + + + + Care Team Providers + +------+ + | Care Application Operations Engineer Name | Role | Phone | [...] | | | | | | [place] [address] | | | | | | [phone] | | | | | | | [...] in | | | | | | [place] with a | | | | | [...] [facility] | [facility] | [facility] | | | | | | Laboratory, [place], | | | | | | [place], delivered | | | | | | [...] by | | | | | | ldvffoqvBrw-Odg-Q: | | | | | | Increased [...] unohistochemistryC-1: | | | | | | [id number] | | | | | | stain [...] | | | | cs determined by [facility] | | | | | | laboratories. [...] [facility] | [address] | [place] [address] | | | PATHOLOGY | [address] | | | + + + + + documented in this encounter Visit Diagnoses Not on filedocumented in this encounter
--- OUTSIDE RECORDS SUMMARY | ~2019-03-23 | XMS | Clinical Summary ---
Demographics + + + | Address | [address] [facility] | | | [place] [address] | + + + | Home Phone [...] [place] | | | | | [address] | | + + + + + Care Team Providers + +------+ + | Care Textbook Associate Name | Role | Phone | + +------+ + PP | Unavailable | + +------+ + Source Comments EDWARD is fully live on both [facility] Ambulatory and [facility] InPatient.[facility] Allergies Not on File Medications Not [...] | | | | | | | [address] | | + +--------+ +--------+ + +--------+ + +--------+ +--------+ + + | Guarantor Name | Accoun | Relation to | Date | Phone | Billing Address | | | t Type | Patient | of | | | | | | | | | | + +--------+ +--------+ + + | CINDY ANRDT | Person | Self [birth year] | [address] | | | al/Fam | | 1955 | [phone] | [address] [place] | | | devonte | | | 5 (Home) | [address] | + +--------+ +--------+ + +"
--- OUTSIDE RECORDS SUMMARY | ~2019-03-23 | XMS | Encounter Summary ---
Demographics + + + | Address | [address] [facility] | | | [place] [address] | + + + | Home Phone [...] [place] | | | | | [address] | | + + + + + Care Team Providers + +------+ + | Care U.S. Senator Name | Role | Phone | + [...] | Transcriptions | + + | Interface, Four Horse Hitch Driver In - 11/04/2006 3:03 AM PST | | [address] | | [place], [place] [address] [facility] and | | ClinicsOPERATION RECORDMed Rec [...] skin retractor was put in place. The [place] elevators wereused to separate the | | [...]
--- OUTSIDE RECORDS SUMMARY | ~2019-03-23 | XMS | Encounter Summary ---
Demographics + + + | Address | [address] | | | [place] [address] | + + + | Home Phone [...] + + + | Author | [facility] | + + + | Organization | [facility] | + + + | Address | Unknown | + + + | Phone | Unavailable | + + + Support + + +---------+ + | Name | Relationship | Address | Phone | + + +---------+ + | Araceli Sibley | ECON | Unknown | | + + +---------+ + Care Team Providers + +------+ + | Care Power Line Lineman Name | Role | Phone | [...] [place] | | | | | | [address] | | | | | | [phone] | | | +--------+ + + + [...] DO - 03/01/2019 11:59 PM PDT Cardiac Artist Mannequin Coloring Date of Event Monitor: 03/01/19 Referring Physician: Lita Patient:Cindy Arndt : 1955 Age: 63 y.o. [...] [place] | | | | | | [id number] | | | | | | | | +--------+---------+ + + + as of this encounter Visit Diagnoses + + | Diagnosis | + + | Palpitation - Primary | + + | Palpitations | + +
--- OUTSIDE RECORDS SUMMARY | ~2019-03-23 | XMS | Encounter Summary ---
Demographics + + + | Address | [address] | | | [place] [address] | + + + | Home Phone [...] + + + | Author | [facility] | + + + | Organization | [facility] | + + + | Address | Unknown | + + + | Phone | Unavailable | + + + Support + + +---------+ + | Name | Relationship | Address | Phone | + + +---------+ + | Araceli Sibley | ECON | Unknown | | + + +---------+ + Care Team Providers + +------+ + | Care Tipple Supervisor Name | Role | Phone | + +------+ + | Jose Ag MD | PCP | | + +------+ + Encounter Details +--------+ + + + + | Date | Type | Department | Care Team | Description | +--------+ + + + + | 03/07/ | Telephone | [facility] | Julia, | | | 2018 | | Arun Cimarron | DMITRIY Kennedy | | | | | [address] | | | | | | [place] | | | | | | [address] | | | | | | [phone] | | | +--------+ + + + [...] [place] | | | | | | [address] | | | | | | | | +--------+---------+ + + + as of this encounter Visit Diagnoses Not on filein this encounter"
--- OUTSIDE RECORDS SUMMARY | ~2019-03-23 | XMS | Encounter Summary ---
Demographics + + + | Address | [address] [facility] | | | [place] [address] | + + + | Home Phone [...] + + + | Author | [facility] | + + + | Organization | [facility] | + + + | Address | Unknown | + + + | Phone | Unavailable | + + + Support + + + + + | Name | Relationship | Address | Phone | + + + + + | Kelsy Bautista | ECON | [address] | | | | | [place] | | | | | [address] | | + + + + + Care Team Providers + +------+ + | Care Automatic Folder Seamer Name | Role | Phone | + [...] | | | | | | [place] [address] | | | | | | [phone] | | | | | | | [...] in | | | | | | [place] with a | | | | | [...] [facility] | | | | | | [facility] | | | | | | Laboratory, [place], | | | | | | [place], delivered | | | | | | [...] by | | | | | | ynrfqwafBun-Iwg-A: | | | | | | Increased [...] unohistochemistryC-1: | | | | | | [id number] | | | | | | stain [...] | | | | cs determined by [facility] | | | | | | [...] + + + + | [facility] | [address] | [place] [address] | | | PATHOLOGY | [place] | | | + + + + + documented in this encounter Visit Diagnoses Not on filedocumented in this encounter
--- OUTSIDE RECORDS SUMMARY | ~2019-03-23 | XMS | Encounter Summary ---
Demographics + + + | Address | [address] | | | [place] [address] | + + + | Home Phone [...] [place] | | | | | [place] | | | | | [address] | | + + + + + Care Team Providers + +------+ + | Care Political Consultant Name | Role | Phone | [...] + + | 02/01/ | Telephone | [facility] [place] | Frandy Teresa, | Imaging Only | | 2019 | | NEUROSURGERY [address] | DO [address] | | | | | [address] | [address] [place], | | | | | [place], [place] | [place] [address] | | | | | [address] | [phone] | | | | | [phone] | | | +--------+ + + + [...]
--- OUTSIDE RECORDS SUMMARY | ~2019-03-23 | XMS | Encounter Summary ---
Demographics + + + | Address | [address] [facility] [address] | | | [place] [address] | + + + | Home Phone [...] [place] | | | | | [address] | | + + + + + Care Team Providers + +------+ + | Care Laser Beam Trim Operator Name | Role | Phone | [...] Clinic | | | | | | [facility], [address] | | | | | | [place], [place] | | | | | | [address] | | | | | | [phone] | | | +--------+ + + + [...] as of this encounter Progress Notes Interface, Rock Crusher In - 12/11/2006 5:03 AM [facility] [...]
--- OUTSIDE RECORDS SUMMARY | ~2019-03-23 | XMS | Encounter Summary ---
Demographics + + + | Address | [address] | | | [place] [address] | + + + | Home Phone [...] [place] | | | | | [place] | | | | | [address] | | + + + + + Care Team Providers + +------+ + | Care Flooring Sales Manager Name | Role | Phone [...] + + | 02/01/ | Telephone | [facility] [place] | Frandy Teresa, | Imaging Only | | 2019 | | NEUROSURGERY [address] | DO [address] | | | | | [address] | [address] [place], | | | | | [place], [place] | [place] [address] | | | | | [address] | [phone] | | | | | [phone] | | | +--------+ + + + [...]
--- OUTSIDE RECORDS SUMMARY | ~2019-03-23 | XMS | Encounter Summary ---
Demographics + + + | Address | [address] | | | [place] [address] | + + + | Home Phone [...] + + + | Author | [facility] | + + + | Organization | [facility] | + + + | Address | Unknown | + + + | Phone | Unavailable | + + + Support + + +---------+ + | Name | Relationship | Address | Phone | + + +---------+ + | Araceli Sibley | ECON | Unknown | | + + +---------+ + Care Team Providers + +------+ + | Care Drywall Hanger Name | Role | Phone | [...] | [address] | [place] | | | | | [place] [address] | [address] | | | | | [place] [address] | | | | | | [phone] | Nneka Celis MA | | +--------+ [...] as of this encounter Progress Notes Nneka Cleis MA - 03/01/2019 9:00 AM PDT1 week panel saw operator placed on patient. EOB/B illing information discussed. [...] [place] | | | | | | [address] | | | | | | | | +--------+---------+ + + + as of this encounter Visit Diagnoses + + | Diagnosis | + + | Palpitation | + + | Palpitations | + +"
--- OUTSIDE RECORDS SUMMARY | ~2019-03-23 | XMS | Encounter Summary ---
Demographics + + + | Address | [address] | | | [place] [address] | + + + | Home Phone [...] + + + | Author | [facility] | + + + | Organization | [facility] | + + + | Address | Unknown | + + + | Phone | Unavailable | + + + Support + + +---------+ + | Name | Relationship | Address | Phone | + + +---------+ + | Araceli Sibley | ECON | Unknown | | + + +---------+ + Care Team Providers + +------+ + | Care Rope Cutter Name | Role | Phone | [...] [place] | | | | | | [address] | | | | | | [phone] | | | +--------+ + + + [...] DO - 03/01/2019 11:59 PM PDT Cardiac Civil Attorney Date of Event Monitor: 03/01/19 Referring Physician: [...] [place] | | | | | | [id number] | | | | | | | | +--------+---------+ + + + as of this encounter Visit Diagnoses + + | Diagnosis | + + | Palpitation - Primary | + + | Palpitations | + +
--- OUTSIDE RECORDS SUMMARY | ~2019-03-23 | XMS | Encounter Summary ---
Demographics + + + | Address | [address] [facility] [address] | | | [place] [address] | + + + | Home Phone [...] Author + + + | Author | [facility] | + + + | Organization | [facility] | + + + | Address | Unknown | + + + | Phone | Unavailable | + + + Support + + + + + | Name | Relationship | Address | Phone | + + + + + | Kelsy Bautista | ECON | [address] | | | | | [place] | | | | | [address] | | + + + + + Care Team Providers + +------+ + | Care Train Control Technician Name | Role | Phone [...] | | | | | | [place] | | | | | | [place] [address] | | | | | | [phone] | | | +--------+ + + + [...] | | + +---------+ + + | [facility] DEPARTMENT OF | | | | | RADIOLOGY | | | | + +---------+ + + documented in this encounter Visit Diagnoses Not on filedocumented in this encounter"
--- OUTSIDE RECORDS SUMMARY | ~2019-03-23 | XMS | Encounter Summary ---
Demographics + + + | Address | [address] [facility] [address] | | | [place] [address] | + + + | Home Phone [...] [place] | | | | | [address] | | + + + + + Care Team Providers + +------+ + | Care Cell Biology Scientist Name | Role | Phone | [...] | Transcriptions | + + | Interface, Heel Layer In - 10/24/2006 3:09 AM PST | | [facility] | | Road [place], [place] [address] [place] | | [facility] CenterOPER[facility] RECORDMed Rec [...]
--- OUTSIDE RECORDS SUMMARY | ~2019-03-23 | XMS | Clinical Summary ---
Demographics + + + | Address | [address] [facility] [address] | | | [place] [address] | + + + | Home Phone [...] + + + | Author | [facility] [employer] [facility] | + + + | Organization | [facility] [employer] [facility] | + + + | Address | Unknown | + + + | Phone | Unavailable | + + + Support + + +---------+ + | Name | Relationship | Address | Phone | + + +---------+ + | Araceli Sibley | ECON | Unknown | | + + +---------+ + Care Team Providers + +------+ + | Care Setter Automatic Spinning Lathe Name | Role | Phone | + [...] | | | | e | | ([employer] VERIO FLEX | | | | | [...] | | 2018 | | | DMITRIY Kenneyd | | +--------+ + + + + | 03/06/ | Documentati | | Ashley Chávez | Other ([facility] | | 2018 | on Only | [...] whether | | | | | | 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 | | | | | | use (HCC) | +--------+ + + + + | 02/09/ | Documentati | | Bernarda Nicholas, | Talia ([facility] | 2018 | on Only | | WASTE MINIMIZATION TECHNICIAN | Family Medicine) | +--------+ + + + + | 02/09/ | Documentati | | Bernarda Nicholas, | Talia ([facility] | 2018 | on Only | | WASTE MINIMIZATION TECHNICIAN | [facility]) | +--------+ + + + + from [...] [place] | | | | | | [address] | | | | | | | [...] + + + + | Calculated P Proctor | 60 | degrees | [facility] E[facility] | + + + + + | Calculated R Proctor | -21 | degrees | [facility] E[facility] | + + + + + | Calculated T Proctor | 9 | degrees | [facility] | + + + + + | Diagnosis | Please refer to | | [facility] | | | Providers office visit | | | | | note for Providers | | | | | Interpretation.Confirmed | | | | | by [facility] [place] Read Only, | | | | | ICA Ravi ([id number]), | | | | | script editor Mc Manning | | | | | (253) on 02/22/2019 | | | | | 3:03:19 PM | | | + + + + + + + + + + | Performing | Address | City/State/Zipcode | Phone Number | | Organization | | | | + + + + + | [facility] | [address] | [facility] [place] [address] | | + + + + + [...] +------+-------+ + | MEDICARE | MEDICA | [id number] | | | [address] | | | RE | | | | [place] [address] | | | IP-OP | | | [...] Self | [birth year] | Home: | [address] | | | al/Fam | | 1955 | [phone] | [address] [place] | | | [place] | | | [phone] | + +--------+ +--------+ + +
--- OUTSIDE RECORDS SUMMARY | ~2019-03-23 | XMS | Encounter Summary ---
Demographics + + + | Address | [address] [facility] [address] | | | [place] [address] | + + + | Home Phone [...] Author + + + | Author | [facility] | + + + | Organization | [facility] | + + + | Address | Unknown | + + + | Phone | Unavailable | + + + Support + + + + + | Name | Relationship | Address | Phone | + + + + + | Kelsy Bautista | ECON | [address] | | | | | [place] | | | | | [address] | | + + + + + Care Team Providers + +------+ + | Care Tire Cord Weaver Name | Role | Phone | [...] | | | | | [address] | | | | | | Road [place], [place] | | | | | | [address] | | | +--------+ + + + [...]
--- OUTSIDE RECORDS SUMMARY | ~2019-03-23 | XMS | Encounter Summary ---
Demographics + + + | Address | [address] | | | [place] [address] | + + + | Home Phone [...] + + + | Author | [facility] | + + + | Organization | [facility] | + + + | Address | Unknown | + + + | Phone | Unavailable | + + + Support + + +---------+ + | Name | Relationship | Address | Phone | + + +---------+ + | Araceli Sibley | ECON | Unknown | | + + +---------+ + Care Team Providers + +------+ + | Care Communication Center Coordinator Name | Role | Phone | [...] [place] | | | | | | [address] | | | | | | [phone] | | | +--------+ + + + [...] | | | | | [place] | | | | | | [address] | | | | | | | | +--------+---------+ + + + as of this encounter Visit Diagnoses Not on filein this encounter"
--- OUTSIDE RECORDS SUMMARY | ~2019-03-23 | XMS | Encounter Summary ---
Demographics + + + | Address | [address] | | | [place] [address] | + + + | Home Phone [...] + + + | Author | [facility] [facility] | + + + | Organization | [facility] | + + + | Address | Unknown | + + + | Phone | Unavailable | + + + Support + + +---------+ + | Name | Relationship | Address | Phone | + + +---------+ + | Araceli Sibley | ECON | Unknown | | + + +---------+ + Care Team Providers + +------+ + | Care College Intern Name | Role | Phone | [...] | | | | | [place] [address] | | | | | | [phone] | | | +--------+ + + + [...] [place] | | | | | | [address] | | | | | | | | +--------+---------+ + + + as of this encounter Visit Diagnoses Not on filein this encounter"
--- OUTSIDE RECORDS SUMMARY | ~2019-03-23 | XMS | Encounter Summary ---
Demographics + + + | Address | [address] | | | [place] [address] | + + + | Home Phone [...] + + + | Author | [facility] [employer] [employer] [facility] | + + + | Organization | [facility] | + + + | Address | Unknown | + + + | Phone | Unavailable | + + + Support + + +---------+ + | Name | Relationship | Address | Phone | + + +---------+ + | Araceli Sibley | ECON | Unknown | | + + +---------+ + Care Team Providers + +------+ + | Care Store Grocery Merchandiser Name | Role | Phone | + +------+ + | Mallorie Shaffer PA-C | PCP | | + +------+ + Reason for Visit +--------+ + | Reason | Comments | +--------+ + | Other | [facility] | +--------+ + Encounter Details +--------+ + + + + | Date | Type | Department | Care Team | Description | +--------+ + + + + | 02/09/ | Documentati | [facility] | Cindy Nicholas, | Other ([facility] | | 2019 | on Only | Cardiology [place] | BARREL LOADER | Family Medicine) | | | | [address] | | | | | | [place] | | | | | | [address] | | | | | | [phone] | | | +--------+ + + + [...] [place] | | | | | | [address] | | | | | | | | +--------+---------+ + + + as of this encounter Visit Diagnoses Not on filein this encounter"
--- OUTSIDE RECORDS SUMMARY | ~2019-03-23 | XMS | Clinical Summary ---
Demographics + + + | Address | [address] [facility] | | | [place] [address] | + + + | Home Phone [...] + + + | Author | [facility] | + + + | Organization | [facility] | + + + | Address | Unknown | + + + | Phone | Unavailable | + + + Support + + +---------+ + | Name | Relationship | Address | Phone | + + +---------+ + | Araceli Sibley | ECON | Unknown | | + + +---------+ + Care Team Providers + +------+ + | Care Sewer Line Photo Inspector Name | Role | Phone | [...] | | | | e | | ([employer] VERIO FLEX | | | | | [...] Documentati | | Ashley Chávez | Other ([facility] | | 2018 | on [...] whether | | | | | | long wall mining 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 helper insulin | | | | | | use (HCC) | +--------+ + + + + | 02/09/ | Documentati | | Bernarda Nicholas, | Talia ([facility] | 2018 | on Only | | SECURITY OPERATIONS ANALYST | Family Medicine) | +--------+ + + + + | 02/09/ | Documentati | | Bernarda Nicholas, | Talia ([facility] | 2018 | on Only | | SECURITY OPERATIONS ANALYST | [facility]) | +--------+ + + + + [...] | | | | | [place] [facility] | | | | | | [address] | | | | | | | [...] + + + + | Calculated P Bronwood | 60 | degrees | [facility] | + + + + + | Calculated R Bronwood | -21 | degrees | [facility] | + + + + + | Calculated T Bronwood | 9 | degrees | [facility] | + + + + + | Diagnosis | Please refer to | | [facility] | | | Providers office visit | | | | | note for Providers | | | | | Interpretation.Confirmed | | | | | by [facility] [place] Read Only, | | | | | [facility] Ravi (502), | | | | | brands editor Mc Manning | | | | | (253) on 02/22/2019 | | | | | 3:03:19 PM | | | + + + + + + + + + + | Performing | Address | City/State/Zipcode | Phone Number | | Organization | | | | + + + + + | [facility] | [address] | [facility] [address] | | + + + + + [...] +------+-------+ + | MEDICARE | MEDICA | [id number] | | | [address] | | | RE | | | | [place] [address] | | | IP-OP | | | [...] Self | [birth year] | Home: | [address] | | | al/Fam | | 1955 | [phone] [address] [place] | | | [place] | | | [phone] | + +--------+ +--------+ + +
--- OUTSIDE RECORDS SUMMARY | ~2019-03-23 | XMS | Encounter Summary ---
Demographics + + + | Address | [address] | | | [place] [address] | + + + | Home Phone [...] + + + | Author | [facility] | + + + | Organization | [facility] | + + + | Address | Unknown | + + + | Phone | Unavailable | + + + Support + + +---------+ + | Name | Relationship | Address | Phone | + + +---------+ + | Araceli Sibley | ECON | Unknown | | + + +---------+ + Care Team Providers + +------+ + | Care Channel Machine Operator Name | Role | Phone [...] | [address] | [place] | | | | | [place] [address] | [address] | | | | | [place] [address] | | | | | | [phone] | Nneka Celis [place] | | +--------+ [...] MA - 03/01/2019 9:00 AM PDT1 week hall monitor placed on patient. EOB/B illing information [...] [place] | | | | | | [address] | | | | | | | | +--------+---------+ + + + as of this encounter Visit Diagnoses + + | Diagnosis | + + | Palpitation | + + | Palpitations | + +"
--- OUTSIDE RECORDS SUMMARY | ~2019-03-23 | XMS | Encounter Summary ---
Demographics + + + | Address | [address] [facility] [address] | | | [place] [address] | + + + | Home Phone [...] [place] | | | | | [address] | | + + + + + [...] | Transcriptions | + + | Interface, Scenic Artist In - 10/24/2006 3:09 AM PST | | [facility] | | Road [place], [place] [address] [place] | | [facility] HospitalOPERATION RECORDMed Rec No.: [id number] Date: [...]
--- OUTSIDE RECORDS SUMMARY | ~2019-03-23 | XMS | Encounter Summary ---
Demographics + + + | Address | [address] | | | [place] [address] | + + + | Home Phone [...] + + + | Author | [facility] [facility] | + + + | Organization | [facility] | + + + | Address | Unknown | + + + | Phone | Unavailable | + + + Support + + +---------+ + | Name | Relationship | Address | Phone | + + +---------+ + | Araceli Sibley | ECON | Unknown | | + + +---------+ + Care Team Providers + +------+ + | Care User Interface Developer Name | Role | Phone | [...] [place] | | | | | | [address] | | | | | | [phone] | | | +--------+ + + + [...] | | | | | [place] | | | | | | [address] | | | | | | | | +--------+---------+ + + + as of this encounter Visit Diagnoses Not on filein this encounter"
--- OUTSIDE RECORDS SUMMARY | ~2019-03-23 | XMS | Encounter Summary ---
Demographics + + + | Address | [address] | | | [place] [address] | + + + | Home Phone [...] + + + | Author | [facility] [employer] [facility] | + + + | Organization | [facility] [employer] [facility] | + + + | Address | Unknown | + + + | Phone | Unavailable | + + + Support + + +---------+ + | Name | Relationship | Address | Phone | + + +---------+ + | Araceli Sibley | ECON | Unknown | | + + +---------+ + Care Team Providers + +------+ + | Care Mother Superior Name | Role | Phone | + +------+ + | Mallorie Shaffer PA-C | PCP | | + +------+ + Reason for Visit +--------+ + | Reason | Comments | +--------+ + | Other | [facility] | +--------+ + Encounter Details +--------+ + + + + | Date | Type | Department | Care Team | Description | +--------+ + + + + | 02/09/ | Documentati | [facility] | Cindy Nicholas, | Other ([facility] | | 2019 | on Only | Cardiology Carl[place] | PRINCIPAL SECURITY ARCHITECT | Family Medicine) | | | | [address] | | | | | | [place] | | | | | | [address] | | | | | | [phone] | | | +--------+ + + + [...] [place] | | | | | | [address] | | | | | | | | +--------+---------+ + + + as of this encounter Visit Diagnoses Not on filein this encounter"
--- OUTSIDE RECORDS SUMMARY | ~2019-03-23 | XMS | Encounter Summary ---
Demographics + + + | Address | [address] [facility] | | | [place] [address] | + + + | Home Phone [...] + + + | Author | [facility] | + + + | Organization | [facility] | + + + | Address | Unknown | + + + | Phone | Unavailable | + + + Support + + + + + | Name | Relationship | Address | Phone | + + + + + | Kelsy Bautista | ECON | [address] | | | | | [place] | | | | | [address] | | + + + + + Care Team Providers + +------+ + | Care Portable Feed Mill Operator Name | Role | Phone [...] | | | | | | [place] | | | | | | [place] [address] | | | | | | [phone] | | | +--------+ + + + [...] | | + +---------+ + + | [facility] DEPARTMENT OF | | | | | RADIOLOGY | | | | + +---------+ + + documented in this encounter Visit Diagnoses Not on filedocumented in this encounter"
[~2019-03-23 15:44] MED LIST changes: +EUTHYROX150 MCG PO; +FUROSEMIDE40 MG PO; +ZOFRAN4 MG PO
--- OUTSIDE RECORDS SUMMARY | 2019-03-23 15:46 | XMS ---
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 Events No recent Security Events currently on file CRITERIA MET - [facility] - Has Care Guidelines - PDMP - [facility] - 2 Visits in 30 Days CARE PROVIDERS Kenny Palafox DO [facility] Current PHONE: Unknown Jose Ag [facility] 01/31/2019-Current PHONE: Unknown [facility] [employer] Mental [facility] Provider Current PHONE: [phone] Guidelines Source: [facility] Radha Negrete Guidelines Date: 03/13/2019 Care Coordination: Mental health services are being provided by [facility].\T\nbsp; Please contact [facility] with mental health concerns.\T\nbsp; [facility]: \T\nbsp; Moshe: [phone]. Care History Medical/Surgical 01/31/2019 [facility] - Patient is currently established with [facility]. If patient is seen in the ED during business hours. Please contact CHWs at [facility]. Care Recommendation: This patient has had 5 or more Emergency Department visits in the last 12 months.\T\nbsp; Patient requires education on the scope and purpose of the ED as an acute care provider not a Primary Care Provider and should not be utilized for chronic conditions.\T\nbsp; These are guidelines and the provider should exercise clinical judgment when providing care. 01/12/2019 [facility] - CHW RECEIVED ED CASE MANAGEMENT CONSULT- HELP PATIENT WITH PCP SET UP. - PATIENT HAS AN ED FOLLOW UP VISIT WITH DR AG ON 01/17/19. - CHW SPOKE WITH CARMEN AT THE CLINIC -PATIENT NEEDS TO SIGN AN LORRI TO RELEASE RECORDS FROM [place] WITH CURRENT MEDICATIONS LISTED FOR DR AG TO REVIEW IN ORDER TO SET UP AN ESTABLISHING CARE APT. - A TE WAS SENT TO ESCOBAR ACEVEDO AT [facility] TO HELP PATIENT WITH LORRI PROCESS AND [place] RECORDS. E.D. VISIT COUNT (12 MO.) 5 [facility]. TOTAL 5 NOTE: Visits indicate total known visits. ED/UCC VISIT TRACKING (12 MO.) 03/23/2019 15:44 [facility] [place] TYPE: Emergency COMPLAINT: - ABNORMAL LABS 03/19/2019 19:33 [facility] [place] TYPE: Emergency COMPLAINT: - MEDICAL CLEARANCE DIAGNOSES: - Visual hallucinations - Auditory hallucinations - Acquired absence of other specified parts of digestive tract - Personal history of transient ischemic attack (TIA), and cerebral infarction without residual deficits - Essential (primary) hypertension - Allergy status to other drugs, medicaments and biological substances status - Schizoaffective disorder, unspecified - Allergy status to sulfonamides status - 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 (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 - Allergy status to narcotic agent status 03/07/2019 10:34 [facility] [place] TYPE: Emergency [...] PAIN DIAGNOSES: - Essential (primary) hypertension - emt 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 (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 of 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 - Other superintendent marine oil terminal (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 - Allergy status to [...] without esophagitis - Bariatric surgery status - emt 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 (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 - Other superintendent marine oil terminal (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 - Suicidal ideations - [...] visits to display in this time frame [email or web address]
[2019-03-23] MEDS ORDERED: AMITRIPTYLINE H50 MG PO (16:00)
--- NOTE | 2019-03-24 14:59 | EKG ---
[facility] [address] [place], [place] [address] Signed Normal sinus rhythm Moderate voltage criteria for LVH, may be normal variant Borderline ECG When compared with ECG of 07-MAR-2019 10:38, No significant change was found Confirmed by RONALD DIAZ DO ([id number]) on 03/24/2019 2:59:09 PM Electronically Signed By: RONALD DIAZ DO 03/24/19 1459 PATIENT NAME: BERNARDA ALARCON AIDE Electrocardiogram DATE OF : 55 PHYSICIAN: RONALD DIAZ DO REPORT #: [id number] REPORT IS CONFIDENTIAL AND NOT TO BE RELEASED WITHOUT AUTHORIZATION
== END 2019-03-23 19:24 | disposition home or self-care (01) ==
LOC: ED 15:44
DX: R79.9 Abnormal finding of blood chemistry, unspecified (principal); I10 Essential (primary) hypertension; Z86.73 Personal history of transient ischemic attack (TIA), and cerebral infarction without residual deficits; Z90.49 Acquired absence of other specified parts of digestive tract; Z88.2 Allergy status to sulfonamides; Z88.5 Allergy status to narcotic agent; Z88.8 Allergy status to other drugs, medicaments and biological substances; Z79.899 Other long term (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
CPT/HCPCS: 80053; 82140; 83735; 84484; 85025; 93005; 93010; 99283-25

== ENCOUNTER 2019-04-11 10:59 | Emergency (ER) | payer MEDICARE ==
[~2019-04-11] VITALS: Ht 170.2 cm; Wt 108.9 kg
[~2019-04-11 10:59] MED LIST changes: +AMITRIPTYLINE H50 MG PO; +VENTOLIN HFA18 GM INH
--- OUTSIDE RECORDS SUMMARY | 2019-04-11 11:02 | XMS ---
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 No recent Security Events currently on file CRITERIA MET - 6 ED Visits in 6 Months - [facility] - Has Care Guidelines - PDMP - [facility] - 2 Visits in 30 Days CARE PROVIDERS Kenny Palafox DO [facility] Current PHONE: Unknown Jose Ag [facility] 01/31/2019-Current PHONE: Unknown [employer] Mental Health Provider Current PHONE: [phone] Guidelines Source: [facility] Radha Negrete Guidelines Date: 03/13/2019 Care Coordination: Mental health services are being provided by [employer].\T\nbsp; Please contact [facility] with mental health concerns.\T\nbsp; [place]: \T\nbsp; Moshe: [phone]. Care History Medical/Surgical 01/31/2019 [facility] - Patient is currently established with [facility]. If patient is seen in the ED during business hours. Please contact CHWs at [facility]. Care Recommendation: This patient has had 5 or more Emergency Department visits in the last 12 months.\T\nbsp; Patient requires education on the scope and purpose of the ED as an acute care provider not a Primary Care Provider and should not be utilized for chronic conditions.\T\nbsp; These are guidelines and the provider should exercise clinical judgment when providing care. 01/12/2019 [facility] - CHW RECEIVED ED CASE MANAGEMENT CONSULT- HELP PATIENT WITH PCP SET UP. - PATIENT HAS AN ED FOLLOW UP VISIT WITH DR AG ON 01/17/19. - CHW SPOKE WITH CARMEN AT THE CLINIC -PATIENT NEEDS TO SIGN AN LORRI TO RELEASE RECORDS FROM [employer] WITH CURRENT MEDICATIONS LISTED FOR DR AG TO REVIEW IN ORDER TO SET UP AN ESTABLISHING CARE APT. - A TE WAS SENT TO ESCOBAR ACEVEDO AT [facility] TO HELP PATIENT WITH LORRI PROCESS AND [employer] RECORDS. E.D. VISIT COUNT (12 MO.) 7 [facility]. TOTAL 7 NOTE: Visits indicate total known visits. ED/UCC VISIT TRACKING (12 MO.) 04/11/2019 11:01 JAEL Banuelos [place] TYPE: Emergency COMPLAINT: - CONFUSION,WEAKNESS, 04/03/2019 12:30 JA[facility] Banuelos [place] TYPE: Emergency COMPLAINT: - TROUBLE BREATHING DIAGNOSES: - Allergy status to other drugs, medicaments and biological substances status - Other ocean transportation intermediary (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 - Allergy status to narcotic agent status - Old myocardial infarction - Dyspnea, unspecified - Personal history of transient ischemic attack (TIA), and cerebral infarction without residual deficits - Essential (primary) hypertension - Allergy status to sulfonamides status - Acquired absence of other specified parts of digestive tract 03/23/2019 15:44 JAEL Banuelos [place] TYPE: Emergency COMPLAINT: - ABNORMAL LABS DIAGNOSES: - Abnormal finding of blood chemistry, unspecified - Allergy status to narcotic agent status - Acquired absence of other specified parts of digestive tract - Essential (primary) hypertension - Other ocean transportation intermediary (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 - Personal history of transient ischemic attack (TIA), and cerebral infarction without residual deficits - Allergy status to sulfonamides status - Allergy status to other drugs, medicaments and biological substances status 03/19/2019 19:33 JAEL Banuelos [place] TYPE: Emergency [...] Allergy status to sulfonamides status - Other ocean transportation intermediary (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 - Allergy status to [...] PAIN DIAGNOSES: - Essential (primary) hypertension - 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 - Other ocean transportation intermediary (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 - Allergy status to sulfonamides status - Gastro-esophageal reflux disease without esophagitis - Allergy status to other antibiotic agents status - Personal history of transient ischemic attack (TIA), and cerebral infarction without residual deficits - Other chest pain - Cough - Allergy status to other drugs, medicaments and biological substances status 01/09/2019 12:12 JAEL Damon TYPE: Emergency COMPLAINT: - MEDICAL CLEARANCE DIAGNOSES: - Gastro-esophageal reflux disease without esophagitis - Bariatric surgery status - 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
[2019-04-11] MEDS ORDERED: LACTULOSE20 GM/30 M PO (14:24)
== END 2019-04-11 15:17 | disposition home or self-care (01) ==
LOC: ED 10:59
DX: E72.20 Disorder of urea cycle metabolism, unspecified (principal); I10 Essential (primary) hypertension; I25.2 Old myocardial infarction; F20.9 Schizophrenia, unspecified; Z86.73 Personal history of transient ischemic attack (TIA), and cerebral infarction without residual deficits; Z90.49 Acquired absence of other specified parts of digestive tract; Z88.2 Allergy status to sulfonamides; Z88.5 Allergy status to narcotic agent; Z88.8 Allergy status to other drugs, medicaments and biological substances; Z79.899 Other long term (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
CPT/HCPCS: 80053; 80164; 82140; 85025; 99284

== ENCOUNTER 2019-04-15 12:20 | Emergency (ER) | payer MEDICARE ==
[~2019-04-15] VITALS: Ht 170.2 cm; Wt 108.9 kg
[~2019-04-15 12:20] MED LIST changes: +LACTULOSE20 GM/30 M PO
--- OUTSIDE RECORDS SUMMARY | 2019-04-15 12:22 | XMS ---
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 Events No recent Security Events currently on file CRITERIA MET - 6 ED Visits in 6 Months - [facility] - Has Care Guidelines - PDMP - [facility] - 2 Visits in 30 Days CARE PROVIDERS Kenny Palafox DO [facility] Current PHONE: Unknown Jose Ag [facility] 01/31/2019-Current PHONE: Unknown [email or web address] [employer] Mental [facility] Provider Current PHONE: [phone] Guidelines Source: [employer] Radha Negrete Guidelines Date: 03/13/2019 Care Coordination: Mental health services are being provided by [employer].\T\nbsp; Please contact [facility] with mental health concerns.\T\nbsp; [place] \T\nbsp; Moshe: [phone]. Care History Medical/Surgical 04/11/2019 [facility] - PATIENT HAS AN APT WITH DR ALAS ON 04/25/19. 01/31/2019 [facility] - Patient is currently established with [facility]. If patient is seen in the ED during business hours. Please contact CHWs at [facility]. Care Recommendation: This patient has had 5 or more Emergency Department visits in the last 12 months.\T\nbsp; Patient requires education on the scope and purpose of the ED as an acute care provider not a Primary Care Provider and should not be utilized for chronic conditions.\T\nbsp; These are guidelines and the provider should exercise clinical judgment when providing care. 01/12/2019 [facility] - CHW RECEIVED ED CASE MANAGEMENT CONSULT- HELP PATIENT WITH PCP SET UP. - PATIENT HAS AN ED FOLLOW UP VISIT WITH DR AG ON 01/17/19. - CHW SPOKE WITH CARMEN AT THE CLINIC -PATIENT NEEDS TO SIGN AN LORRI TO RELEASE RECORDS FROM [employer] WITH CURRENT MEDICATIONS LISTED FOR DR AG TO REVIEW IN ORDER TO SET UP AN ESTABLISHING CARE APT. - A TE WAS SENT TO ESCOBAR ACEVEDO AT [facility] TO HELP PATIENT WITH LORRI PROCESS AND [employer] RECORDS. E.D. VISIT COUNT (12 MO.) 8 [facility] TOTAL 8 NOTE: Visits indicate total known visits. ED/UCC VISIT TRACKING (12 MO.) 04/15/2019 12:21 [facility]uelos [place] TYPE: Emergency COMPLAINT: - CHEST PAIN 04/11/2019 11:01 JA[facility] Banuelos [place] TYPE: Emergency COMPLAINT: - CONFUSION,WEAKNESS, DIAGNOSES: - Allergy status to narcotic agent status - Weakness - Schizophrenia, unspecified - Allergy status to sulfonamides status - Allergy status to other drugs, medicaments and biological substances status - Old myocardial infarction - Personal history of transient ischemic attack (TIA), and cerebral infarction without residual deficits - Disorder of urea cycle metabolism, unspecified - Other longterm (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 - Acquired absence of other specified parts of digestive tract - Essential (primary) hypertension 04/03/2019 12:30 JA[facility] Banuelos [place] TYPE: Emergency COMPLAINT: - TROUBLE BREATHING DIAGNOSES: - Allergy status to other drugs, medicaments and biological substances status - Other manager terminal (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 - Allergy status [...] tract - Essential (primary) hypertension - Other longterm (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 - Personal history of [...] Allergy status to sulfonamides status - Other longterm (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 - Allergy status to [...] PAIN DIAGNOSES: - Essential (primary) hypertension - half-way (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 of 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 - Other longterm (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 - Allergy status to [...] without esophagitis - Bariatric surgery status - 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
--- NOTE | 2019-04-16 13:08 | EKG ---
[facility] [address] [place] [address] Signed Normal sinus rhythm Moderate voltage criteria for LVH, may be normal variant Borderline ECG When compared with ECG of 15-APR-2019 12:26, (Unconfirmed) No significant change was found Confirmed by GAYLE MUÑOZ MD ([id number]) on 04/16/2019 1:08:09 PM Electronically Signed By: GAYLE MUÑOZ MD 04/16/19 1308 PATIENT NAME: BERNARDA ALARCON Electrocardiogram DATE OF : 55 PHYSICIAN: GAYLE MUÑOZ MD REPORT #: [id number] REPORT IS CONFIDENTIAL AND NOT TO BE RELEASED WITHOUT AUTHORIZATION
--- NOTE | 2019-04-16 13:08 | EKG ---
[facility] [address] [place] [address] Signed Sinus tachycardia Voltage criteria for left ventricular hypertrophy Abnormal ECG When compared with ECG of 03-APR-2019 12:56, No significant change was found Confirmed by GAYLE MUÑOZ MD ([id number]) on 04/16/2019 1:07:56 PM Electronically Signed By: GAYLE MUÑOZ MD 04/16/19 1308 PATIENT NAME: BERNARDA ALARCON AIED Electrocardiogram DATE OF : 55 PHYSICIAN: GAYLE MUÑOZ MD REPORT #: [id number] REPORT IS CONFIDENTIAL AND NOT TO BE RELEASED WITHOUT AUTHORIZATION
== END 2019-04-15 17:04 | disposition home or self-care (01) ==
LOC: ED 12:20
DX: R07.89 Other chest pain (principal); I10 Essential (primary) hypertension; Z86.73 Personal history of transient ischemic attack (TIA), and cerebral infarction without residual deficits; Z90.49 Acquired absence of other specified parts of digestive tract; Z88.2 Allergy status to sulfonamides; Z88.8 Allergy status to other drugs, medicaments and biological substances
CPT/HCPCS: 71045; 80053; 84484; 85025; 85379; 93005; 93010; 96374; 96375; 99285-25; J2405

== ENCOUNTER 2019-07-01 10:57 | Emergency (ER) | payer MEDICARE ==
[~2019-07-01] VITALS: Ht 170.2 cm; Wt 95.2 kg
[~2019-07-01 10:57] MED LIST changes: +CLEOCIN HCL300 MG PO; +NEXIUM40 MG PO; +PANTOPRAZOLE SO40 MG PO; +ZOFRAN4 MG SL
--- OUTSIDE RECORDS SUMMARY | 2019-07-01 11:00 | XMS ---
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 No recent Security Events currently on file CRITERIA MET - 6 ED Visits in 6 Months - [facility] - Has Care Guidelines - PDMP CARE PROVIDERS Kenny Palafox DO [facility] Current PHONE: Unknown Jose Ag [facility] 01/31/2019-Current PHONE: Unknown [employer] Mental Health Provider Current PHONE: [phone] Guidelines Source: [employer] Radha Negrete Guidelines Date: 03/13/2019 Care Coordination: Mental health services are being provided by [employer].\T\nbsp; Please contact [employer] with mental health concerns.\T\nbsp; [place]: [phone]\T\nbsp; Moshe: [phone]. 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 - PATIENT IS WORKING CLOSELY WITH [employer] IN REGARDS TO PSYCHIATRIC MEDICATIONS. ANY PSYCHIATRIC MED CHANGES AND OR ADJUSTMENTS WILL NEED TO BE REVIEWED BY CREW LEADER GLUING AT [employer]. 04/11/2019 [facility] - PATIENT HAS AN APT WITH DR ALAS ON 04/25/19. 01/31/2019 [facility] - Patient is currently established with [facility]. If patient is seen in the ED during business hours. Please contact CHWs at [facility]. Care Recommendation: This patient has had 5 or more Emergency Department visits in the last 12 months.\T\nbsp; Patient requires education on the scope and purpose of the ED as an acute care provider not a Primary Care Provider and should not be utilized for chronic conditions.\T\nbsp; These are guidelines and the provider should exercise clinical judgment when providing care. E.D. VISIT COUNT (12 MO.) 14 [facility]. TOTAL 14 NOTE: Visits indicate total known visits. ED/UCC VISIT TRACKING (12 MO.) 07/01/2019 10:58 [facility] Banuelos [place] TYPE: Emergency COMPLAINT: - AMB SYNCOPE 05/14/2019 22:02 JAEL Banuelos [place] TYPE: Emergency COMPLAINT: - VOICES IN HEAD DIAGNOSES: - Essential (primary) hypertension - Personal history of transient ischemic attack (TIA), and cerebral infarction without residual deficits - Gastro-esophageal reflux disease without esophagitis - 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ogical condition - Old myocardial infarction - Suicidal ideations - Encounter for other general examination - Allergy status to sulfonamides status - Allergy status to other drugs, medicaments and biological substances status - Allergy status to narcotic agent status - Other senior care (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 - Schizophrenia, unspecified 05/10/2019 14:24 JAEL Banuelos [place] TYPE: Emergency COMPLAINT: - MEDICAL CLEARANCE DIAGNOSES: - Acquired absence of other specified parts of digestive tract - 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ogical condition - Gastro-esophageal reflux disease without esophagitis - Other senior care (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 - Allergy status to other drugs, medicaments and biological substances status - terminal clerk (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 of 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 - Allergy status to narcotic agent status - Schizophrenia, unspecified - Personal history of transient ischemic attack (TIA), and cerebral infarction without residual deficits - Allergy status to sulfonamides status - Essential (primary) hypertension - Old myocardial infarction 05/08/2019 15:14 JAEL Banuelos [place] TYPE: Emergency COMPLAINT: - MEDICAL CLEARANCE LIFEWAYS DIAGNOSES: - Suicidal ideations - Acquired absence of other specified parts of digestive tract - Allergy status to other drugs, medicaments and biological substances status - Allergy status to narcotic agent status - Visual hallucinations - Gastro-esophageal reflux disease without esophagitis - Personal history of transient ischemic attack (TIA), and cerebral infarction without residual deficits - Allergy status to sulfonamides status - Other senior care (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 - Essential (primary) hypertension - Auditory hallucinations 05/07/2019 10:38 JAEL Banuelos [place] TYPE: Emergency COMPLAINT: - CHEST PAIN DIAGNOSES: - Essential (primary) hypertension - Allergy status to other drugs, medicaments and biological substances status - Gastro-esophageal reflux disease without esophagitis - Acquired absence of other specified parts of digestive tract - Personal history of transient ischemic attack (TIA), and cerebral infarction without residual deficits - Old myocardial infarction - Other senior care (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 - Allergy status to sulfonamides status - Other chest pain 05/02/2019 13:59 JAEL Banuelos [place] TYPE: Emergency COMPLAINT: - VOMITING, CHEST PAIN, WEAKNESS DIAGNOSES: - Allergy status to sulfonamides status - terminal clerk (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 of 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 - Allergy status to other drugs, medicaments and biological substances status - Nausea with vomiting, unspecified - Old myocardial infarction - Gastro-esophageal reflux disease without esophagitis - Essential (primary) hypertension - Dehydration - Schizoaffective disorder, unspecified - Hyperglycemia, unspecified 04/15/2019 12:21 JAEL Banuelos [place] TYPE: Emergency COMPLAINT: - CHEST PAIN DIAGNOSES: - Allergy status to other drugs, medicaments and biological substances status - Allergy status to sulfonamides status - Personal history of transient ischemic attack (TIA), and cerebral infarction without residual deficits - Acquired absence of other specified parts of digestive tract - Other chest pain - Essential (primary) hypertension 04/11/2019 11:01 JAEL Banuelos [place] TYPE: Emergency [...] of urea cycle metabolism, unspecified - Other senior care (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 - Acquired absence of other specified parts of digestive tract - Essential (primary) hypertension 04/03/2019 12:30 JAEL Banuelos [place] TYPE: Emergency COMPLAINT: - TROUBLE BREATHING DIAGNOSES: - Allergy status to other drugs, medicaments and biological substances status - Other senior care (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 - Allergy status to [...] tract - Essential (primary) hypertension - Other senior care (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 - Personal history of [...] Allergy status to sulfonamides status - 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 clerk (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 - Allergy status to [...] deficits - Precordial pain 01/30/2019 16:57 JAEL Damon TYPE: Emergency COMPLAINT: - CHEST PAIN DIAGNOSES: - Essential (primary) hypertension - alf (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 of 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 - 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 clerk (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 - Allergy status to [...] without esophagitis - Bariatric surgery status - alf (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 - Other senior care (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 - Suicidal ideations - [...] agent status INPATIENT VISIT TRACKING (12 MO.) 05/16/2019 11:50 Edilberto PINEDA OR TYPE: [facility] COMPLAINT: - SCHIZOAFFECTIVE D/O DIAGNOSES: - Schizoaffective disorder, unspecified [email or web address]
[2019-07-01] MEDS ORDERED: AMITRIPTYLINE H50 MG PO (11:14)
--- NOTE | 2019-07-01 20:42 | EKG ---
[facility] [address] [place] [address] Signed Sinus rhythm with 1st degree AV block Minimal voltage criteria for LVH, may be normal variant Borderline ECG When compared with ECG of 07-MAY-2019 10:42, No significant change was found Confirmed by GAYLE MUÑOZ MD ([id number]) on 07/01/2019 8:42:29 PM Electronically Signed By: GAYLE MUÑOZ MD 07/01/19 2042 PATIENT NAME: BERNARDA ALARCON AIDE Electrocardiogram DATE OF : 55 PHYSICIAN: GAYLE MUÑOZ MD REPORT #: [id number] REPORT IS CONFIDENTIAL AND NOT TO BE RELEASED WITHOUT AUTHORIZATION
== END 2019-07-01 12:25 | disposition home or self-care (01) ==
LOC: ED 10:57
DX: R55 Syncope and collapse (principal); I10 Essential (primary) hypertension; I25.2 Old myocardial infarction; Z86.73 Personal history of transient ischemic attack (TIA), and cerebral infarction without residual deficits; Z88.2 Allergy status to sulfonamides; Z88.8 Allergy status to other drugs, medicaments and biological substances; Z88.5 Allergy status to narcotic agent; Z79.899 Other long term (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
CPT/HCPCS: 71045; 80053; 84484; 85025; 93005; 93010; 99284-25; J7030

== ENCOUNTER 2019-07-05 09:02 | Emergency (ER) | payer MEDICARE ==
[~2019-07-05] VITALS: Ht 170.2 cm; Wt 95.2 kg
--- OUTSIDE RECORDS SUMMARY | 2019-07-05 09:06 | XMS ---
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 No recent Security Events currently on file CRITERIA MET - 6 ED Visits in 6 Months - [facility] - Has Care Guidelines - PDMP - [facility] - 2 Visits in 30 Days CARE PROVIDERS Kenny Palafox DO [facility] Current PHONE: Unknown Jose Ag [facility] 01/31/2019-Current PHONE: Unknown [employer] [email or web address] Mental Health Provider Current PHONE: [phone] Guidelines Source: [employer] Radha Negrete Guidelines Date: 03/13/2019 Care Coordination: Mental health services are being provided by [employer].\T\nbsp; Please contact [facility] with mental health concerns.\T\nbsp; [place]: [phone]\T\nbsp; Moshe: [phone]. Care History Medical/Surgical 07/02/2019 [facility] - PATIENT HAS AN APT WITH [facility] ON 07/05/19. 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 - PATIENT IS WORKING CLOSELY WITH [employer] IN REGARDS TO PSYCHIATRIC MEDICATIONS. ANY PSYCHIATRIC MED CHANGES AND OR ADJUSTMENTS WILL NEED TO BE REVIEWED BY LOG DRIVER AT [employer]. 04/11/2019 [facility] - PATIENT HAS AN APT WITH DR ALAS ON 04/25/19. E.D. VISIT COUNT (12 MO.) 15 [facility] TOTAL 15 NOTE: Visits indicate total known visits. ED/UCC VISIT TRACKING (12 MO.) 07/05/2019 09:03 JAEL Banuelos [place] TYPE: Emergency COMPLAINT: - SYNCOPE 07/01/2019 10:58 JAEL Banuelos [place] TYPE: Emergency COMPLAINT: - AMB SYNCOPE DIAGNOSES: - Allergy status to other drugs, medicaments and biological substances status - Essential (primary) hypertension - Syncope and collapse - Personal history of transient ischemic attack (TIA), and cerebral infarction without residual deficits - Old myocardial infarction - Allergy status to sulfonamides status - Other care home (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 - Allergy status to narcotic agent status 05/14/2019 22:02 JAEL Banuelos [place] TYPE: Emergency [...] status to narcotic agent status - Other care home (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 - Schizophrenia, unspecified 05/10/2019 14:24 JAEL Banuelos [place] TYPE: Emergency COMPLAINT: - MEDICAL CLEARANCE DIAGNOSES: - Acquired absence of other specified parts of digestive tract - 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ogical condition - Gastro-esophageal reflux disease without esophagitis - 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 gauger supervisor (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 - Allergy status to other drugs, medicaments and biological substances status - manager 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 (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 of 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 [...] Allergy status to sulfonamides status - Other care home (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 - Essential (primary) hypertension [...] deficits - Old myocardial infarction - Other care home (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 - Allergy status to sulfonamides status - Other chest pain 05/02/2019 13:59 JAEL Banuelos [place] TYPE: Emergency COMPLAINT: - VOMITING, CHEST PAIN, WEAKNESS DIAGNOSES: - Allergy status to sulfonamides status - FPC (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 of 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 - [...] of urea cycle metabolism, unspecified - 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 gauger supervisor (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 - Acquired absence of other specified parts of digestive tract - Essential (primary) hypertension 04/03/2019 12:30 JAEL Banuelos [place] TYPE: Emergency COMPLAINT: - TROUBLE BREATHING DIAGNOSES: - Allergy status to other drugs, medicaments and biological substances status - 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 gauger supervisor (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 - Allergy status to [...] tract - Essential (primary) hypertension - 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 gauger supervisor (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 - Personal history of [...] Allergy status to sulfonamides status - Other care home (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 - Allergy status to [...] PAIN DIAGNOSES: - Essential (primary) hypertension - FPC (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 of 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 - 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 gauger supervisor (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 - Allergy status to [...] without esophagitis - Bariatric surgery status - manager 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 (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 - 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 gauger supervisor (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 - Suicidal ideations - [...] MO.) 05/16/2019 11:50 Edilberto PINEDA OR TYPE: [facility] COMPLAINT: - SCHIZOAFFECTIVE D/O DIAGNOSES: - Schizoaffective disorder, unspecified [email or web address]
[2019-07-05] MEDS ORDERED: ZALEPLON10 MG PO (09:22)
--- NOTE | 2019-07-05 13:09 | EKG ---
[facility] [address] [place] [address] Signed Sinus rhythm with premature atrial complexes with aberrant conduction Moderate voltage criteria for LVH, may be normal variant Borderline ECG When compared with ECG of 01-JUL-2019 11:00, aberrant conduction is now present OK interval has decreased Confirmed by GAYLE MUÑOZ MD ([id number]) on 07/05/2019 1:08:50 PM Electronically Signed By: GAYLE MUÑOZ MD 07/05/19 1309 PATIENT NAME: BERNARDA ALARCON AIDE Electrocardiogram DATE OF : 55 PHYSICIAN: GAYLE MUÑOZ MD REPORT #: [id number] REPORT IS CONFIDENTIAL AND NOT TO BE RELEASED WITHOUT AUTHORIZATION
== END 2019-07-05 10:32 | disposition home or self-care (01) ==
LOC: ED 09:02
DX: R42 Dizziness and giddiness (principal); I10 Essential (primary) hypertension; F20.9 Schizophrenia, unspecified; I25.2 Old myocardial infarction; Z86.73 Personal history of transient ischemic attack (TIA), and cerebral infarction without residual deficits; Z88.2 Allergy status to sulfonamides; Z88.5 Allergy status to narcotic agent; Z88.8 Allergy status to other drugs, medicaments and biological substances; Z79.899 Other long term (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
CPT/HCPCS: 80053; 84484; 85025; 93005; 93010; 99284-25

== ENCOUNTER 2019-08-15 15:25 | Emergency (ER) | payer MEDICARE, OTHER ==
[~2019-08-15] VITALS: Ht 170.2 cm; Wt 90.7 kg
--- OUTSIDE RECORDS SUMMARY | ~2019-08-15 | XMS | Encounter Summary ---
Demographics + + + | Address | [address] | | | [place] [address] | + + + | Home Phone | | + + + | Preferred Language | Unknown | + + + | Marital Status | | + + + | Lutheran Affiliation | 1013 | + + + | Race | Unknown | + + + | Ethnic Group | Unknown | + + + Author + + + | Author | [facility] | | | and [place] | + + + | Organization | [facility] | | | and [place] | + + + | Address | Unknown | + + + | Phone | Unavailable | + + + Support + + + + + | Name | Relationship | Address | Phone | + + + + + | Araceli Sibley | ECON | [address] | | | | | [place] | | | | | [address] | | + + + + + Care Team Providers + +------+ + | Care Hydrographic Engineer Name | Role | Phone | + +------+ + | Adriano Patrick MD | PCP | | + +------+ + Encounter Details +--------+ + + + + | Date | Type | Department | Care Team | Description | +--------+ + + + + | 05/16/ | Orders Only | [facility] | Provider, | | | 2018 | | SYSTEM GENERIC OP | [address] | | | | | CONVERSION [address] | [address]imi [address]. | | | | | [address] [place], [place] | [place] [address] | | | | | [address] | | | | | | [phone] | | | +--------+ + + + [...] + +---------+ + | Alcohol Use | Drinks/We | oz/Week | Comments | | | ek | | | + + +---------+ + | No [...] | | | | | [place] | | | | | | [address] | | | | | | | | +--------+---------+ + + + documented as of this encounter Visit Diagnoses Not on filedocumented in this encounter"
--- OUTSIDE RECORDS SUMMARY | ~2019-08-15 | XMS | Encounter Summary ---
Demographics + + + | Address | [address] | | | [place] [address] | + + + | Home Phone | | + + + | Preferred Language | Unknown | + + + | Marital Status | | + + + | Druze Affiliation | 1013 | + + + [...] | Araceli Sibley | ECON | [address] | | | | | [place] | | | | | [address] | | + + + + + Care Team Providers + +------+ + | Care Mold Polisher Name | Role | Phone | + [...] + + + + | 08/14/ | Documentati | [facility] | Katharine Moncada, | Other (urgent | | 2019 | on | CARDIOLOGY [place] | Technologist | report) | | | | [address] | | | | | | [place] | | | | | | [address] | | | | | | [phone] | | | +--------+ + + + [...] [place] | | | | | | [address] | | | | | | | | +--------+---------+ + + + documented as of this encounter Visit Diagnoses Not on filedocumented in this encounter"
--- OUTSIDE RECORDS SUMMARY | ~2019-08-15 | XMS | Encounter Summary ---
Demographics + + + | Address | [address] | | | [place] [address] | + + + | Home Phone | | + + + | Preferred Language | Unknown | + + + | Marital Status | Single | + + + | Synagogue Affiliation | Unknown | + + + [...] [place] | | | | | [address] | | + + + + + Care Team Providers + +------+ + | Care Drupal Web Developer Name | Role | Phone | [...] [id number] | | | | | | [place], [place] | | | | | | [address] | | | | | | [phone] | | | +--------+ + + + [...] + + + + + | [facility] | [address] | [place] [address] | | | PATHOLOGY | [address] [...] Re | | | | | | [address] | | | | + + + + + + + + | Specimen | + + | | + + + + + + + | Performing | Address | City/State/Zipcode | Phone Number | | Organization | | | | + + + + + | [facility] | [address] | [place] [address] | | | PATHOLOGY | [address] [...] Re | | | | | | [address] | | | | + + + + + + + + | Specimen | + + | | + + + + + + + | Performing | Address | City/State/Zipcode | Phone Number | | Organization | | | | + + + + + | [facility] | [address] | [place] [address] | | | PATHOLOGY | [address] [...] Re | | | | | | [address]26[address] | | | | + + + + + + + + | Specimen | + + | | + + + + + + + | Performing | Address | City/State/Zipcode | Phone Number | | Organization | | | | + + + + + | [facility] | [address] | [place] [address] | | | PATHOLOGY | [address] [...] Re | | | | | | [address] | | | | + + + + + + + + | Specimen | + + | | + + + + + + + | Performing | Address | City/State/Zipcode | Phone Number | | Organization | | | | + + + + + | [facility] | [address] | [place] [address] | | | PATHOLOGY | [address] | | | + + + + + documented in this encounter Visit Diagnoses Not on filedocumented in this encounter"
--- OUTSIDE RECORDS SUMMARY | ~2019-08-15 | XMS | Encounter Summary ---
Demographics + + + | Address | [address] | | | [place] [address] | + + + | Home Phone | | + + + | Preferred Language | Unknown | + + + | Marital Status | | + + + | Mormon Affiliation | 1013 | + + + [...] | Araceli Sibley | ECON | [address] | | | | | [place] | | | | | [address] | | + + + + + Care Team Providers + +------+ + | Care Metal Tank Erector Name | Role | Phone | + [...] + + | 08/09/ | Clinical | [facility] | Desiree Peterson DO | Syncope, unspecified | | 2019 | Support | CARDIOLOGY [place] | [address] | syncope type | | | | [address] | [place], [place] | | | | | [facility] [address] | [address] | | | | | [place], [place] | | | | | | [address] | Dora De La Torre | | | | | [phone] | CAROLINE Mendez [address] | | | | | [address] | | | | | | [place] [address] | | | | | | [phone] | | | | | | | [...] Progress Notes Cindy Nicholas CMA - 08/09/2019 1500 PDT4 weeks cardiac event monitor placed on patient. EOB/Billing information discussed. Instructions given and understood. documented in this encounter Plan of Treatment +--------+---------+ + + + | Date | Type | Specialty | Care Team | Description | +--------+---------+ + + + | 10/11/ | Office | Cardiology | Desiree Peterson DO | | | 2018 | Visit | | [address] | | | | | | [place] | | | | | | [address] | | | | | | | | +--------+---------+ + + + documented as of this encounter Visit Diagnoses + + | Diagnosis | + + | Syncope, unspecified syncope type | + + documented in this encounter"
--- OUTSIDE RECORDS SUMMARY | ~2019-08-15 | XMS | Encounter Summary ---
Demographics + + + | Address | [address] | | | [place] [address] | + + + | Home Phone [...] | Araceli Sibley | ECON | [address] | | | | | [place] | | | | | [address] | | + + + + + Care Team Providers + +------+ + | Care Cloth Hand Name | Role | Phone | [...] + + | 08/14/ | Telephone | [facility] | Ashley Chávez | Other (Patient was | | 2018 | | CARDIOLOGY GENESIS Abad, Toy Assembly Supervisor | anxious about urgent | | | | [address] | | reports. ) | | | | [place] | | | | | | [address] | | | | | | [phone] | | | +--------+ + + + [...] [place] | | | | | | [address] | | | | | | | | +--------+---------+ + + + documented as of this encounter Visit Diagnoses Not on filedocumented in this encounter"
--- OUTSIDE RECORDS SUMMARY | ~2019-08-15 | XMS | Encounter Summary ---
Demographics + + + | Address | [address] | | | [place] [address] | + + + | Home Phone [...] Author + + + | Author | [facility] | + + + | Organization | [facility] | + + + | Address | Unknown | + + + | Phone | Unavailable | + + + Support + + + + + | Name | Relationship | Address | Phone | + + + + + | Kelsy Bautista | ECON | [address] | | | | | [place] | | | | | [address] | | + + + + + Care Team Providers + +------+ + | Care Check Writer Name | Role | Phone | + [...] | | | | | | [place] | | | | | | [place] [address] | | | | | | [phone] | | | +--------+ + + + [...] | | + +---------+ + + | [facility] DEPARTMENT OF | | | | | RADIOLOGY | | | | + +---------+ + + documented in this encounter Visit Diagnoses Not on filedocumented in this encounter"
--- OUTSIDE RECORDS SUMMARY | ~2019-08-15 | XMS | Clinical Summary ---
Demographics + + + | Address | [address] | | | [place] [address] | + + + | Home Phone [...] | Author | [facility] ([facility]ical as of | | | 06-09-19) | + + + | Organization | [facility] (Historical as of | | | [...] Providers + +------+ + | Care Emergency Medicine Specialist Name | Role | Phone | [...] | | Activ | | (VITAMIN D3) [id number] | a week. | | | | [...] + | T2DM (type 2 diabetes mellitus) ([facility]) | 04/13/2013 | + + + Immunizations [...] +------+-------+ + | MEDICARE | MEDICA | [id number] | | | [address] | | | RE | | | | [place] [address] | | | IP-OP | | | [...] Self | [birth year] | Home: | [address] | | | al/Fam | | 1955 | [phone] | [address] [place] | | | [place] | | | [phone] | + +--------+ +--------+ + +
--- OUTSIDE RECORDS SUMMARY | ~2019-08-15 | XMS | Encounter Summary ---
Demographics + + + | Address | [address] | | | [place] [address] | + + + | Home Phone [...] [place] | | | | | [address] | | + + + + + Care Team Providers + +------+ + | Care Multiple Spindle Screw Machine Operator Name | Role | Phone [...] + + | 07/19/ | Office | [facility] | Desiree Peterson DO | Syncope, unspecified | | 2019 | Visit | CARDIOLOGY [place] | [address] | syncope type | | | | [address] | [place], [place] | (Primary Dx); | | | | [address] [place] [address] | [address] | Essential | | | | [place], [place] | | hypertension; | | | | [address] | | Irregular heartbeat | | | | [phone] | | | +--------+---------+ + + + [...] | Blood Pressure | 116/70 | 07/19/2019 1040 PDT | + + + + | Pulse | 85 | 07/19/20191039 PDT | + + + + | Temperature | - | - | + + + + | Respiratory Rate | - | - | + + + + | Oxygen Saturation | 93% | 07/19/20191039 PDT | + + + + | Inhaled Oxygen | - | - | | Concentration | | | + + + + | Weight | 136.5 kg (301 lb) | 07/19/20191039 PDT | + + + + | Height | 170.2 cm (5' 7") | 07/19/2019 1040 PDT | + + + + | Body Mass Index | 47.14 | 07/19/2019 1040 PDT | + + + + documented in this encounter Progress Notes Desiree Peterson DO - 07/19/2019 1040 PDT [facility] Cardiology Cardiology Follow Up Note Reason [...] rtake in exercise. She recently got a H-umus and has been walking him more regularly. [...] by mouth daily. Blood Glucose Monitoring Suppl ([employer] VERIO FLEX SYSTEM) w/Device KIT by Does not ap ply route. budesonide-formoterol (SYMBICORT) 160-4.5 MCG/ACT inhaler Inhale 2 puffs into the lungs 2 (two) times daily. Calcium Carbonate Antacid 1000 MG tablet Take 1,000 mg by mouth 3 (three) times daily. Cholecalciferol (VITAMIN D3) 67955 units CAPS Take by mouth once a [...] Jose Peterson DO 04/22/2019 documented in this encount er Plan of Treatment +--------+---------+ + + + | Date | Type | Specialty | Care Team | Description | +--------+---------+ + + + | 10/11/ | Office | Cardiology | Desiree Peterson DO | | | 2018 | Visit | | [address] | | | | | | [facility] [facility] | | | | | | [address] | | | | | | | | +--------+---------+ + + + + +--------+ + + | Name | Priori | Associated Diagnoses | Order Schedule | | | ty | | | + +--------+ + + | Event monitor - 4 week | Routin | Syncope, | Expected: | | | e | unspecified syncope | 07/26/2019, Expires: | | | | type | 07/19/2020 | + +--------+ + + documented as of this encounter Visit Diagnoses + + | Diagnosis | + + | Syncope, unspecified syncope type - Primary | + + | Essential hypertension Unspecified essential hypertension | + + | Irregular heartbeat Cardiac dysrhythmia, unspecified | + + documented in this encounter
--- OUTSIDE RECORDS SUMMARY | ~2019-08-15 | XMS | Encounter Summary ---
Demographics + + + | Address | [address] | | | [place] [address] | + + + | Home Phone [...] [place] | | | | | [address] | | + + + + + Care Team Providers + +------+ + | Care Door Hanger Name | Role | Phone | [...] | Transcriptions | + + | Interface, [place] In - 10/24/2006 3:09 AM PST | | [facility] | | [address] [place], [place] [address] [place] | | [facility] HospitalOPERATION RECORDMed Rec No.: [id number] [...]
--- OUTSIDE RECORDS SUMMARY | ~2019-08-15 | XMS | Encounter Summary ---
Demographics + + + | Address | [address] | | | [place] [address] | + + + | Home Phone [...] Araceli Sibley | ECON | [address] | | | | | [place] | | | | | [address] | | + + + + + Care Team Providers + +------+ + | Care Screen Maker Name | Role | Phone | [...] + + | 06/27/ | Office | [facility] | Yecenia Richardson, | Hypertension, | | 2019 | Visit | CARDIOLOGY [place] | MD Nitin RODRIGUES | unspecified type | | | | [address] [facility] | [place], [place] | (Primary Dx); | | | | [place] [address] | [id number] | Bradycardia | | | | [place] | | | | | | [address] | | | | | | [phone] | | | +--------+---------+ + + + [...] + | Blood Pressure | 162/82 | 06/27/20191308 PDT | + + + + | Pulse | 91 | 06/27/20191308 PDT | + + + + | Temperature | - | - | + + + + | Respiratory Rate | - | - | + + + + | Oxygen Saturation | 94% | 06/27/20191308 PDT | + + + + | Inhaled Oxygen | - | - | | Concentration | | | + + + + | Weight | - | - | + + + + | Height | 170.2 cm (5' 7") | 06/27/2019 1309 PDT | + + + + | Body Mass Index | - | - | + + + + documented in this encounter Progress Notes Yecenia Richardson MD - 06/27/2019 1245 PDT Date of visit: 06/27/2019 Primary Care Physician: [...] "they always say follow-up with your physi crisedla." Was evaluated by Dr. Faye for chest [...] Take by mouth. Blood Glucose Monitoring Suppl (Xeko VERIO FLEX SYSTEM) w/Device KIT by Does [...] mg by mouth Daily. Cholecalciferol (VITAMIN D-3) 74718 units CAPS Take 50,000 Units by mouth [...] tablet Take 10 mg by mouth nightly. [place]-3 Fatty Acids (FISH OIL CONCENTRATE) 1000 MG [...] contact me. Yecenia Richardson MD, MPH P DTdocumented in this encounter Plan of Treatment +--------+---------+ + + + | Date | Type | Specialty | Care Team | Description | +--------+---------+ + + + | 10/11/ | Office | Cardiology | Desiree Peterson DO | | | 2019 | Visit | | [address] | | | | | | [place], [place] | | | | | | [id number] | | | | | | | | +--------+---------+ + + + + +--------+ + + | Name | Priori | Associated Diagnoses | Order Schedule | | | ty | | | + +--------+ + + | ECG 12 lead | Routin | Hypertension, | Ordered: 06/27/2019 | | | e | unspecified type | | | | | Bradycardia | | + +--------+ + + documented as of this encounter Visit Diagnoses + + | Diagnosis | + + | Hypertension, unspecified type - Primary | + + | Bradycardia Other specified cardiac dysrhythmias | + + documented in this encounter
--- OUTSIDE RECORDS SUMMARY | ~2019-08-15 | XMS | Encounter Summary ---
Demographics + + + | Address | [address] [facility] [address] | | | [place] [address] | + + + | Home Phone [...] Author + + + | Author | [facility] | + + + | Organization | [facility] | + + + | Address | Unknown | + + + | Phone | Unavailable | + + + Support + + + + + | Name | Relationship | Address | Phone | + + + + + | Kelsy Bautista | ECON | [address] | | | | | [place] | | | | | [address] | | + + + + + Care Team Providers + +------+ + | Care Trimming Machine Set Up Operator Name | Role | Phone | + +------+ + PCP | Unavailable | + +------+ + Encounter Details +--------+ + + + + | Date | Type | Department | Care Team | Description | +--------+ + + + + | 07/03/ | Office | General Internal | Note, Outpatient | Progress Note | | 1996 | Visit-Trans | Medicine [address] | Clinic | | | | isabelle | [address] | | | | | | Mailcode: L475 | | | | | | Outpatient Clinic | | | | | | [address] | | | | | | [place], [place] | | | | | | [address] | | | | | | [phone] | | | +--------+ + + + [...] as of this encounter Progress Notes Interface, Accountant Property In - 12/11/2006 5:03 AM [place] [...]
--- OUTSIDE RECORDS SUMMARY | ~2019-08-15 | XMS | Encounter Summary ---
Demographics + + + | Address | [address] | | | [place] [address] | + + + | Home Phone [...] Sibley | ECON | [address] [facility] [facility] [address] | | | | | [place] | | | | | [address] | | + + + + + Care Team Providers + +------+ + | Care Drapery Counselor Name | Role | Phone | [...] + + | 08/14/ | Documentati | [facility] | Katharine Moncada, | Other (urgent | | 2019 | on | CARDIOLOGY [place] | Technologist | report) | | | | [address] | | | | | | [place] | | | | | | [address] | | | | | | [phone] | | | +--------+ + + + [...] [place] | | | | | | [address] | | | | | | | | +--------+---------+ + + + documented as of this encounter Visit Diagnoses Not on filedocumented in this encounter"
--- OUTSIDE RECORDS SUMMARY | ~2019-08-15 | XMS | Encounter Summary ---
Demographics + + + | Address | [address] [facility] [address] | | | [place] [address] | + + + | Home Phone [...] [place] | | | | | [address] | | + + + + + Care Team Providers + +------+ + | Care Pickling Solution Maker Name | Role | Phone | [...] | | | | | | [place] [address] | | | | | | [phone] | | | | | | | [...] in | | | | | | [place] with a | | | | | [...] | | | | | | Laboratory, [place], | | | | | | [place], delivered | | | | | | [...] by | | | | | | zuznxilxRtb-Duu-C: | | | | | | Increased [...] istryMHC-1: | | | | | | BaaffwscXK44 stain | | | | | | [...] [place] | [address] | [place] [address] | | | PATHOLOGY | [address] | | | + + + + + documented in this encounter Visit Diagnoses Not on filedocumented in this encounter
--- OUTSIDE RECORDS SUMMARY | ~2019-08-15 | XMS | Encounter Summary ---
Demographics + + + | Address | [address] | | | [place] [address] | + + + | Home Phone [...] [place] | | | | | [address] | | + + + + + Care Team Providers + +------+ + | Care Dye Feeder Name | Role | Phone | [...] + + | 08/14/ | Telephone | [facility] | Ashley Chávez | Other (Patient was | | 2018 | | CARDIOLOGY [place] Abad, Occupational Health And Safety Manager | anxious about urgent | | | | [address] | | reports. ) | | | | [place] | | | | | | [address] | | | | | | [phone] | | | +--------+ + + + [...] [place] | | | | | | [address] | | | | | | | | +--------+---------+ + + + documented as of this encounter Visit Diagnoses Not on filedocumented in this encounter"
--- OUTSIDE RECORDS SUMMARY | ~2019-08-15 | XMS | Encounter Summary ---
Demographics + + + | Address | [address] | | | [place] [address] | + + + | Home Phone [...] | Araceli Sibley | ECON | [address] [facility] [address] | | | | | [place] | | | | | [address] | | + + + + + Care Team Providers + +------+ + | Care Environmental Aide Name | Role | Phone | [...] + + | 08/13/ | Documentati | [facility] | Katharine Moncada, | Other (urgent | | 2019 | on | CARDIOLOGY [place] | Technologist | report) | | | | [address] | | | | | | [place] | | | | | | [address] | | | | | | [phone] | | | +--------+ + + + [...] [place] | | | | | | [address] | | | | | | | | +--------+---------+ + + + documented as of this encounter Visit Diagnoses Not on filedocumented in this encounter"
--- OUTSIDE RECORDS SUMMARY | ~2019-08-15 | XMS | Encounter Summary ---
Demographics + + + | Address | [address] [facility] [address] | | | [place] [address] | + + + | Home Phone [...] [place] | | | | | [address] | | + + + + + Care Team Providers + +------+ + | Care Helicopter Pilot Instructor Name | Role | Phone | [...] Rd | | | | | | [place], [place] | | | | | | [address] | | | +--------+ + + + [...]
--- OUTSIDE RECORDS SUMMARY | ~2019-08-15 | XMS | Encounter Summary ---
Demographics + + + | Address | [address] [facility] [address] | | | [place] [address] | + + + | Home Phone | | + + + | Preferred Language | Unknown | + + + | Marital Status | Single | + + + | Mandaen Affiliation | Unknown | + + + [...] [place] | | | | | [address] | | + + + + + Care Team Providers + +------+ + | Care Connection Worker Name | Role | Phone | + +------+ + PCP | Unavailable | + +------+ + Encounter Details +--------+ + + + + | Date | Type | Department | Care Team | Description | +--------+ + + + + | 07/03/ | Office | General Internal | Note, Outpatient | Progress Note | | 1996 | Visit-Trans | Medicine [address] | Clinic | | | | [place]abelle | [address] | | | | | | Mailcode: L475 | | | | | | Outpatient Clinic | | | | | | [address] | | | | | | [place], [place] | | | | | | [address] | | | | | | [phone] | | | +--------+ + + + [...] as of this encounter Progress Notes Interface, Embroidery Designer In - 12/11/2006 5:03 AM [facility] DATE: 07/03/97 INFECTIOUS DISEASE [...]
--- OUTSIDE RECORDS SUMMARY | ~2019-08-15 | XMS | Encounter Summary ---
Demographics + + + | Address | [address] [facility] [address] | | | [place] [address] | + + + | Home Phone [...] [place] | | | | | [address] | | + + + + + Care Team Providers + +------+ + | Care Continuous Wave Operator Name | Role | Phone | [...] | Transcriptions | + + | Interface, Calibration Tester In - 11/04/2006 3:03 AM PST | | [address] | | [place], [place] [address] [facility] and | | ClinicsOPERATION RECORDMed Rec [...] skin retractor was put in place. The [place] elevators wereused to separate the | | [...]
--- OUTSIDE RECORDS SUMMARY | ~2019-08-15 | XMS | Encounter Summary ---
Demographics + + + | Address | [address] | | | [place] [address] | + + + | Home Phone [...] [place] | | | | | [address] | | + + + + + Care Team Providers + +------+ + | Care Charging Machine Operator Name | Role | Phone | + +------+ + | Adriano Patrick MD | PCP | | + +------+ + Encounter Details +--------+ + + + + | Date | Type | Department | Care Team | Description | +--------+ + + + + | 05/16/ | Orders Only | [facility] | Provider, | | | 2018 | | SYSTEM GENERIC OP | MD [address] | | | | | CONVERSION [address] | Mimi Kay. | | | | | [address] [place], [place] | [place] [address] | | | | | [address] | | | | | | [phone] | | | +--------+ + + + [...] | | | | | [place] | | | | | | [address] | | | | | | | | +--------+---------+ + + + documented as of this encounter Visit Diagnoses Not on filedocumented in this encounter"
--- OUTSIDE RECORDS SUMMARY | ~2019-08-15 | XMS | Encounter Summary ---
Demographics + + + | Address | [address] | | | [place] [address] | + + + | Home Phone [...] | Araceli Sibley | ECON | [address] | | | | | [place] | | | | | [address] | | + + + + + Care Team Providers + +------+ + | Care Hospital Ward Clerk Name | Role | Phone | [...] + + | 07/30/ | Telephone | [facility] | Ashley Chávez | Talia (Patient | | 2019 | | CARDIOLOGY [place] Abad, Wheel Blocker | concerns ) | | | | [address] | | | | | | [place] | | | | | | [address] | | | | | | [phone] | | | +--------+ + + + [...] | | | | | [place] | | | | | | [address] | | | | | | | | +--------+---------+ + + + documented as of this encounter Visit Diagnoses Not on filedocumented in this encounter"
--- OUTSIDE RECORDS SUMMARY | ~2019-08-15 | XMS | Encounter Summary ---
Demographics + + + | Address | [address] [facility] | | | [place] [address] | + + + | Home Phone [...] [place] | | | | | [address] | | + + + + + Care Team Providers + +------+ + | Care Refrigerator Assembler Name | Role | Phone | [...] [address] | | | | | | [place], [place] | | | | | | [address] | | | +--------+ + + + [...]
--- OUTSIDE RECORDS SUMMARY | ~2019-08-15 | XMS | Encounter Summary ---
Demographics + + + | Address | [address] | | | [place] [address] | + + + | Home Phone [...] [place] | | | | | [address] | | + + + + + Care Team Providers + +------+ + | Care Prior Authorization Nurse Name | Role | Phone | [...] + + | 07/24/ | Telephone | [facility] | Ashley Chávez | Other (Patient is | | 2019 | | CARDIOLOGY [place] Abad, Utility Bill Complaints Investigator | worried about paying | | | | [address] | | for monitor. ) | | | | [place], [place] | | | | | | [address] | | | | | | [phone] | | | +--------+ + + + [...] [place] | | | | | | [address] | | | | | | | | +--------+---------+ + + + documented as of this encounter Visit Diagnoses Not on filedocumented in this encounter"
--- OUTSIDE RECORDS SUMMARY | ~2019-08-15 | XMS | Encounter Summary ---
Demographics + + + | Address | [address] | | | [place] [address] | + + + | Home Phone [...] | Araceli Sibley | ECON | [address] [facility] [address] | | | | | [place] | | | | | [address] | | + + + + + [...] + + | 06/28/ | Telephone | [facility] | Ashley Chávez | Other (Patient | | 2019 | | CARDIOLOGY [place] Abad, Diesel Locomotive Firer | called to cancel her | | | | [address] | | appointment) | | | | [place] | | | | | | [address] | | | | | | [phone] | | | +--------+ + + + [...] [place] | | | | | | [address] | | | | | | | | +--------+---------+ + + + documented as of this encounter Visit Diagnoses Not on filedocumented in this encounter"
--- OUTSIDE RECORDS SUMMARY | ~2019-08-15 | XMS | Encounter Summary ---
Demographics + + + | Address | [address] | | | [place] [address] | + + + | Home Phone [...] | Araceli Sibley | ECON | [address] | | | | | [place] | | | | | [address] | | + + + + + Care Team Providers + +------+ + | Care Dining Chair Seat Cushion Trimmer Name | Role | Phone | [...] | 08/13/ | Documentati | [facility] | Katharine Moncada, | Other (urgent | | 2019 | on | CARDIOLOGY [place] | Technologist | report) | | | | [address] | | | | | | [place] | | | | | | [address] | | | | | | [phone] | | | +--------+ + + + [...] [place] | | | | | | [address] | | | | | | | | +--------+---------+ + + + documented as of this encounter Visit Diagnoses Not on filedocumented in this encounter"
--- OUTSIDE RECORDS SUMMARY | ~2019-08-15 | XMS | Encounter Summary ---
Demographics + + + | Address | [address] | | | [place] [address] | + + + | Home Phone [...] [place] | | | | | [address] | | + + + + + Care Team Providers + +------+ + | Care Middle School Volleyball Coach Name | Role | Phone | [...] + + | 07/19/ | Office | [facility] | Desiree Peterson DO | Syncope, unspecified | | 2019 | Visit | CARDIOLOGY [place] | [address] | syncope type | | | | [address] | [place], [place] | (Primary Dx); | | | | [address] | [address] | Essential | | | | [place], [place] | | hypertension; | | | | [address] | | Irregular heartbeat | | | | [phone] | | | +--------+---------+ + + + [...] Desiree Peterson DO - 07/19/2019 1040 PDT [facility] Cardiology Cardiology Follow Up [...] rtake in exercise. She recently got a [employer] and has been walking him more regularly. [...] by mouth daily. Blood Glucose Monitoring Suppl (Innova VERIO FLEX SYSTEM) w/Device KIT by Does not ap ply route. budesonide-formoterol (SYMBICORT) 160-4.5 MCG/ACT inhaler Inhale 2 puffs into the lungs 2 (two) times daily. Calcium Carbonate Antacid 1000 MG tablet Take 1,000 mg by mouth 3 (three) times daily. Cholecalciferol (VITAMIN D3) 67441 units CAPS Take by mouth once a [...] | | | | [facility] [facility] | | | | | | [id number] | | | | | | | [...]
--- OUTSIDE RECORDS SUMMARY | ~2019-08-15 | XMS | Encounter Summary ---
Demographics + + + | Address | [address] | | | [place] [address] | + + + | Home Phone [...] Araceli Sibley | ECON | [address] [facility] [address] | | | | | [place] | | | | | [address] | | + + + + + Care Team Providers + +------+ + | Care Scleroscope Tester Name | Role | Phone | [...] | 06/27/ | Office | [facility] | Yecenia Richardson, | Hypertension, | | 2019 | Visit | CARDIOLOGY [place] | MD Nitin RODRIGUES | unspecified type | | | | [address] [facility] | [place], [place] | (Primary Dx); | | | | [place] [address] | [phone] | Bradycardia | | | | [place] | | | | | | [address] | | | | | | [phone] | | | +--------+---------+ + + + [...] urgent basis. Had an appointment today in [facility]. She has been feeling dizzy as [...] Take by mouth. Blood Glucose Monitoring Suppl ([employer] VERIO FLEX SYSTEM) w/Device KIT by Does [...] mg by mouth Daily. Cholecalciferol (VITAMIN D-3) 57791 units CAPS Take 50,000 Units by mouth [...] tablet Take 10 mg by mouth nightly. [place]-3 Fatty Acids (FISH OIL CONCENTRATE) 1000 MG [...] | | | | | [place], [place] | | | | | | [id number] | | | | | | | [...]
--- OUTSIDE RECORDS SUMMARY | ~2019-08-15 | XMS | Encounter Summary ---
Demographics + + + | Address | [address] [facility] | | | [place] [address] | + + + | Home Phone [...] [place] | | | | | [address] | | + + + + + Care Team Providers + +------+ + | Care Decker Operator Name | Role | Phone | [...] [id number] | | | | | | [place], [place] | | | | | | [address] | | | | | | [phone] | | | +--------+ + + + [...] | + + + + + | [facility] | [address] | [place] [address] | | | PATHOLOGY | [address] [...] Re | | | | | | [address] | | | | + + + + + + + + | Specimen | + + | | + + + + + + + | Performing | Address | City/State/Zipcode | Phone Number | | Organization | | | | + + + + + | [facility] | [address] | [place] [address] | | | PATHOLOGY | [address] [...] Re | | | | | | [address]45[address] | | | | + + + + + + + + | Specimen | + + | | + + + + + + + | Performing | Address | City/State/Zipcode | Phone Number | | Organization | | | | + + + + + | [facility] | [address] | [place] [address] | | | PATHOLOGY | [address] [...] Re | | | | | | [address] | | | | + + + + + + + + | Specimen | + + | | + + + + + + + | Performing | Address | City/State/Zipcode | Phone Number | | Organization | | | | + + + + + | [facility] | [address] | [place] [address] | | | PATHOLOGY | [address] [...] Re | | | | | | [address] | | | | + + + + + + + + | Specimen | + + | | + + + + + + + | Performing | Address | City/State/Zipcode | Phone Number | | Organization | | | | + + + + + | [facility] | [address] | [place] [address] | | | PATHOLOGY | [address] | | | + + + + + documented in this encounter Visit Diagnoses Not on filedocumented in this encounter"
--- OUTSIDE RECORDS SUMMARY | ~2019-08-15 | XMS | Encounter Summary ---
Demographics + + + | Address | [address] | | | [place] [address] | + + + | Home Phone [...] [place] | | | | | [address] | | + + + + + Care Team Providers + +------+ + | Care Air Conditioning Manager Name | Role | Phone | [...] + + | 08/15/ | Documentati | [facility] | Katharine Moncada, | Other (urgent | | 2019 | on | CARDIOLOGY [place] | Technologist | report) | | | | [address] | | | | | | [place] | | | | | | [address] | | | | | | [phone] | | | +--------+ + + + [...] [place] | | | | | | [address] | | | | | | | | +--------+---------+ + + + documented as of this encounter Visit Diagnoses Not on filedocumented in this encounter"
--- OUTSIDE RECORDS SUMMARY | ~2019-08-15 | XMS | Clinical Summary ---
Demographics + + + | Address | [address] [facility] [address] | | | [place] [address] | + + + | Home Phone | | + + + | Preferred Language | Unknown | + + + | Marital Status | Single | + + + | Mandaeism Affiliation | Unknown | + + + [...] + + + + + | Kelsy Buatista | ECON | [address] | | | | | [place] | | | | | [address] | | + + + + + Care Team Providers + +------+ + | Care Operations Tech Name | Role | Phone | + +------+ + PCP | Unavailable | + +------+ + Source Comments EDWARD is fully live on both [facility] Ambulatory and [facility] InPatient.[facility] Allergies Not on File Medications [...] | [employer] | xxxxxxxxxx | 02/22/20 | [phone] | [address] | [facility] | | | RE A & | | 15-Pre | 1 | [address] | re | | | B | | sent | | [place] | | | | | | | | [address] | | + +--------+ +--------+ + +--------+ + +--------+ +--------+ + + | Guarantor Name | Accoun | Relation to | Date | Phone | Billing Address | | | t Type | Patient | of | | | | | | | | | | + +--------+ +--------+ + + | CINDY ARNDT | Person | Self | [birth year] | [address] | | al/Fam | | 1955 | [phone] | [address] [place] | | | [place]onte | | | 5 (Home) | [address] | + +--------+ +--------+ + +"
--- OUTSIDE RECORDS SUMMARY | ~2019-08-15 | XMS | Encounter Summary ---
Demographics + + + | Address | [address] [facility] | | | [place] [address] | + + + | Home Phone [...] [place] | | | | | [address] | | + + + + + Care Team Providers + +------+ + | Care Basket Operator Name | Role | Phone | [...] | Transcriptions | + + | Interface, Dredge Pipe Operator In - 11/04/2006 3:03 AM PST | | [address] | | [place], [place] [address] [place] and | | ClinicsOPERATION RECORDMed Rec No.: [...] skin retractor was put in place. The [place] elevators wereused to separate the | | [...]
--- OUTSIDE RECORDS SUMMARY | ~2019-08-15 | XMS | Clinical Summary ---
Demographics + + + | Address | [address] | | | [place] [address] | + + + | Home Phone [...] [place] | | | | | [address] | | + + + + + Care Team Providers + +------+ + | Care Ore Smelter Name | Role | Phone | + [...] | | Activ | | (VITAMIN D-3) 14419 | mouth Once a week. | | [...] | | | | | | | ([facility]) | | | | | | | + + + +---------+------+------+-------+ | B Complex Vitamins | Take by mouth. | | 0 | | | Activ | | (VITAMIN B COMPLEX | | | | | | e | | PO) | | | | | | | + + + +---------+------+------+-------+ | acetaminophen | Take 325 mg by [...] + + +---------+------+------+-------+ | amitriptyline | Take 50 mg by [...] | | | | e | | ([employer] VERIO FLEX | | | | | | | | SYSTEM) w/Device | | | | | | | | KIT | | | | | | | + + + +---------+------+------+-------+ | | Inhale 2 puffs into | [...] | | + + + +---------+------+------+-------+ | ibuprofen | Take 800 mg by mouth | | 0 | | | Activ | | (ADVIL,MOTRIN) 800 | every 8 hours as | | | | | e | | MG tablet | needed. | | | | | | + + + +---------+------+------+-------+ | atenolol | Take 50 mg by mouth | | 0 | | | Activ | | (TENORMIN) 50 mg | daily. | | | | | e | | tablet | | | | | | | + + + +---------+------+------+-------+ | calcium carbonate | Take 1,000 mg by | | 0 | | | Activ | | antacid (TUMS ULTRA | mouth 3 (three) | | | | | e | | 1000) 1000 MG CHEW | times daily. | | | | | | + + + +---------+------+------+-------+ | Multiple [...] | | + + + +---------+------+------+-------+ | pantoprazole | Take 20 mg by mouth | | 0 | | | Activ | | (PROTONIX) 20 mg | 2 times daily | | | | | e | | tablet | (before meals). | | | | | | + + + +---------+------+------+-------+ | glipiZIDE | Take 5 mg by mouth | | 0 | | | Activ | | (GLUCOTROL) 5 mg | every morning | | | | | e | | tablet | (before breakfast). | | | | | | + + + +---------+------+------+-------+ | potassium chloride | Take 10 mEq by mouth | | 0 | | | Activ | | (KLOR-CON) 10 MEQ | 2 times daily. | | | | | e | | ER tablet | | | | | | | + + + +---------+------+------+-------+ | Melatonin 5 MG | Place 5 mg under the | | 0 | 06/0 | 09/2 | Disco | | SUBL | tongue nightly. | | | 6/20 | 6/20 | ntinu | | | | | | 12 | 19 | ed | + + + +---------+------+------+-------+ | fluocinonide | Apply to affected | | 0 | 06/0 | 09/2 | Disco | | (LIDEX) 0.05 % | area twice daily as | | | 6/20 | 6/20 | ntinu | | ointment | needed | | | 12 | 19 | ed | + + + +---------+------+------+-------+ | PARoxetine (PAXIL) | Take 20 mg by mouth | | 0 | 06/0 | 09/2 | Disco | | 20 mg tablet | Daily. | | | /20 | 6/20 | ntinu | | | | | | 12 | 19 | ed | + + + +---------+------+------+-------+ | UNCODED | Diagnosis: | 1 | 0 | 05/0 | 09/2 | Disco | | MEDICATIONIndication | Obstructive Sleep | Device | | /20 | 6/20 | ntinu | | s: Obstructive sleep | ApneaICD-9: | | | 13 | 19 | ed | | apnea (adult) | 327.23Length of | | | | | | | (pediatric) | Need: 99 Months | | | | | | + + + +---------+------+------+-------+ | Magnesium 250 MG | Take 2 tablets by | | 0 | | 09/2 | Disco | | TABS | mouth nightly. | | | | 6/20 | ntinu | | | | | | | 19 | ed | + + + +---------+------+------+-------+ | Multiple | Take 1 tablet by | | 0 | | 09/2 | Disco | | Vitamins-Minerals | mouth Daily. | | | | 6/20 | ntinu | | (CENTRUM SILVER PO) | | | | | 19 | ed | + + + +---------+------+------+-------+ | tocopherol | Take 400 Units by | | 0 | | 09/2 | Disco | | (VITAMIN E) 400 | mouth 2 times daily. | | | | 6/20 | ntinu | | units capsule | | | | | 19 | ed | + + + +---------+------+------+-------+ | | Take 1-2 tablets by | 60 | 0 | 12/0 | 09/2 | Disco | | HYDROcodone-acetamin | mouth every 4 hours | tablet | | 4/20 | 6/20 | ntinu | | ophen (NORCO) 10-325 | as needed for Pain. | | | 14 | 19 | ed | | mg per tablet | | | | | | | + + + +---------+------+------+-------+ | CALCIUM CITRATE PO | Take 500 mg by mouth | | 0 | | 09/2 | Disco | | | Daily. | | | | 6/20 | ntinu | | | | | | | 19 | ed | + + + +---------+------+------+-------+ | lisinopril | Take 1 tablet by | 90 | 3 | 05/1 | 09/2 | Disco | | (PRINIVIL, ZESTRIL) | mouth Daily. | tablet | | / | 6/20 | ntinu | | 10 mg | | | | 15 | 19 | ed | | tabletIndications: | | | | | | | | Essential | | | | | | | | hypertension | | | | | | | + + + +---------+------+------+-------+ | [place]-3 Fatty | Take 1,000 mg by | 60 each | 5 | 05/1 | 09/2 | Disco | | Acids (FISH OIL | mouth 2 times daily. | | | 7/20 | 6/20 | ntinu | | CONCENTRATE) 1000 MG | | | | 15 | 19 | ed | | CAPS | | | | | | | + + + +---------+------+------+-------+ | Cyanocobalamin | Take by mouth. | | 0 | | 09/2 | Disco | | (VITAMIN B-12 PO) | | | | | 6/20 | ntinu | | | | | | | 19 | ed | + + + +---------+------+------+-------+ | divalproex | Take 250 mg by | | 0 | | 09/2 | Disco | | (DEPAKOTE) 250 mg EC | mouth. | | | | 6/20 | ntinu | | tablet | | | | | 19 | ed | + + + +---------+------+------+-------+ | Calcium Carbonate | Take by mouth. | | 0 | | 09/2 | Disco | | Antacid (TUMS E-X | | | | | 6/20 | ntinu | | 750 PO) | | | | | 19 | ed | + + + +---------+------+------+-------+ | Digestive Enzymes | Take by mouth. | | 0 | | 09/2 | Disco | | (PAPAYA ENZYME) CHEW | | | | | 6/20 | ntinu | | | | | | | 19 | ed | + + + +---------+------+------+-------+ | atenolol | Take 25 mg by mouth | | 0 | | 09/2 | Disco | | (TENORMIN) 25 mg | Daily. | | | | 6/20 | ntinu | | tablet | | | | | 19 | ed | + + + +---------+------+------+-------+ | naproxen sodium | Take 220 mg by mouth | | 0 | | 09/2 | Disco | | (ALEVE) 220 MG | every 12 hours. | | | | 6/20 | ntinu | | tablet | | | | | 19 | ed | + + + +---------+------+------+-------+ | Triamcinolone | by Nasal route. | | 0 | | 09/2 | Disco | | Acetonide (NASACORT | | | | | 6/20 | ntinu | | AQ NA) | | | | | 19 | ed | + + + +---------+------+------+-------+ | gabapentin | Take 300 mg by mouth | | 0 | | 09/2 | Disco | | (NEURONTIN) 300 mg | 3 times daily. | | | | 6/20 | ntinu | | capsule | | | | | 19 | ed | + + + +---------+------+------+-------+ | dexlansoprazole | Take 60 mg by mouth | | 0 | | 09/2 | Disco | | (DEXILANT) [address] | Daily. | | | | 6/20 | ntinu | | capsule | | | | | 19 | ed | + + + +---------+------+------+-------+ | | Take 1 tablet by | | 0 | | 09/2 | Disco | | oxyCODONE-acetaminop | mouth every 6 hours | | | | 6/20 | ntinu | | hen (PERCOCET) | as needed for Pain. | | | | 19 | ed | | 10-325 mg per tablet | | | | | | | + + + +---------+------+------+-------+ | asenapine | Place 10 mg under | | 0 | | 09/2 | Disco | | (SAPHRIS) 10 mg SL | the tongue Daily. | | | | 6/20 | ntinu | | tablet | | | | | 19 | ed | + + + +---------+------+------+-------+ | furosemide (LASIX) | Take 40 mg by mouth | | 0 | | 09/2 | Disco | | 40 mg tablet | Daily. | | | | 6/20 | ntinu | | | | | | | 19 | ed | + + + +---------+------+------+-------+ | | Take 25 mg by mouth | | 0 | | 09/2 | Disco | | hydrochlorothiazide | Daily. | | | | 6/20 | ntinu | | 25 mg tablet | | | | | 19 | ed | + + + +---------+------+------+-------+ | | Take 1 capsule by | | 0 | | 09/2 | Disco | | aspirin-dipyridamole | mouth 2 times daily. | | | | 6/20 | ntinu | | (AGGRENOX) 25-200 | | | | | 19 | ed | | mg per 12 hr capsule | | | | | | | + + + +---------+------+------+-------+ | methocarbamol | Take 750 mg by mouth | | 0 | | 09/2 | Disco | | (ROBAXIN) 750 mg | as needed. | | | | 6/20 | ntinu | | tablet | | | | | 19 | ed | + + + +---------+------+------+-------+ | Thiamine HCl | Take by mouth. | | 0 | | 09/2 | Disco | | (VITAMIN B-1 PO) | | | | | 6/20 | ntinu | | | | | | | 19 | ed | + + + +---------+------+------+-------+ | atorvaSTATin | Take 10 mg by mouth | | 0 | | 09/2 | Disco | | (LIPITOR) 10 mg | daily (after | | | | 6/20 | ntinu | | tablet | dinner). | | | | 19 | ed | + + + +---------+------+------+-------+ | Digestive Enzymes | Take 2 tablets by | | 0 | | 09/2 | Disco | | TABS | mouth 3 times daily | | | | 6/20 | ntinu | | | (with meals). | | | | 19 | ed | + + + +---------+------+------+-------+ | ergocalciferol | Take 50,000 Units by | | 0 | | 09/2 | Disco | | (VITAMIN D-2) 50,000 | mouth Once a week. | | | | 6/20 | ntinu | | units capsule | | | | | 19 | ed | + + + +---------+------+------+-------+ | gentamicin | Place into the left | | 0 | | 09/2 | Disco | | (GENTAK) 0.3% | eye 4 times daily. | | | | 6/20 | ntinu | | ophthalmic ointment | | | | | 19 | ed | + + + +---------+------+------+-------+ | hydrOXYzine | Take 100 mg by mouth | | 0 | | 09/2 | Disco | | (VISTARIL) 50 MG | 3 (three) times | | | | 6/20 | ntinu | | capsule | daily as needed for | | | | 19 | ed | | | Itching. | | | | | | + + + +---------+------+------+-------+ | isosorbide | Take 30 mg by mouth | | 0 | | 09/2 | Disco | | dinitrate (ISORDIL) | daily (after | | | | 6/20 | ntinu | | 30 MG tablet | breakfast). | | | | 19 | ed | + + + +---------+------+------+-------+ | loperamide | Take 2 mg by mouth 4 | | 0 | | 09/2 | Disco | | (IMODIUM) 2 mg | (four) times daily | | | | 6/20 | ntinu | | capsule | as needed for | | | | 19 | ed | | | Diarrhea. | | | | | | + + + +---------+------+------+-------+ | magnesium oxide | Take 500 mg by mouth | | 0 | | 09/2 | Disco | | (MAG-OX) 400 mg | nightly. | | | | 6/20 | ntinu | | tablet | | | | | 19 | ed | + + + +---------+------+------+-------+ | nitroglycerin | Place 0.4 mg under | | 0 | | 09/2 | Disco | | (NITROSTAT) 0.3 mg | the tongue every 5 | | | | 6/20 | ntinu | | SL tablet | minutes as needed. | | | | 19 | ed | + + + +---------+------+------+-------+ | omeprazole | Take 40 mg by mouth | | 0 | 08/0 | 09/2 | Disco | | (PRILOSEC) 40 MG | every morning | | | /20 | 20 | ntinu | | capsule | (before breakfast). | | | 14 | 19 | ed | + + + +---------+------+------+-------+ | calcium citrate | Take 2 tablets by | | 0 | | /2 | Disco | | (CALCITRATE) 950 mg | mouth 2 times daily. | | | | 20 | ntinu | | tablet | Lunch and dinner | | | | 19 | ed | + + + +---------+------+------+-------+ | cyanocobalamin | Take 1,000 mcg by | | 0 | | /2 | Disco | | (VITAMIN B-12) 1000 | mouth daily. | | | | 6/20 | ntinu | | MCG tablet | | | | | 19 | ed | + + + +---------+------+------+-------+ | divalproex | Take 1,250 mg by | | 0 | | 09/2 | Disco | | (DEPAKOTE ER) 250 mg | mouth nightly. | | | | 6/20 | ntinu | | 24 hr tablet | | | | | 19 | ed | + + + +---------+------+------+-------+ | | Take 1 tablet by | | 0 | | 09/2 | Disco | | HYDROcodone-acetamin | mouth. | | | | 6/20 | ntinu | | ophen (NORCO) 5-325 | | | | | 19 | ed | | mg per tablet | | | | | | | + + + +---------+------+------+-------+ | levothyroxine | Take 125 mcg by | | 0 | | 09/2 | Disco | | (SYNTHROID) 200 mcg | mouth every morning | | | | 6/20 | ntinu | | tablet | (before breakfast). | | | | 19 | ed | + + + +---------+------+------+-------+ | metFORMIN | Take 500 mg by mouth | | 0 | | 09/2 | Disco | | (GLUCOPHAGE) 500 mg | 2 times daily (with | | | | 6/20 | ntinu | | tablet | breakfast & | | | | 19 | ed | | | dinner). | | | | | | + + + +---------+------+------+-------+ | metFORMIN | Take 500 mg by mouth | | 0 | | 09/2 | Disco | | (GLUMETZA) 500 MG 24 | daily (with | | | | 6/20 | ntinu | | hr tablet | breakfast). | | | | 19 | ed | + + + +---------+------+------+-------+ | fish oil 1,000 mg | Take 1,250 mg by | | 0 | | 09/2 | Disco | | capsule | mouth 2 times daily. | | | | 6/20 | ntinu | | | | | | | 19 | ed | + + + +---------+------+------+-------+ | zaleplon (SONATA) | | | 0 | 05/0 | 09/2 | Disco | | 10 MG capsule | | | | 6/20 | 6/20 | ntinu | | | | | | 19 | 19 | ed | + + + +---------+------+------+-------+ | lindsayon (CECILATA) | | | 2 | | 06/25 | Disco | | 5 mg capsule | | | | 12/13 | 04/12 | ntinu | | | | | | | 19 | ed | + + + +---------+------+------+-------+ Active Problems [...] | | 2018 | | | D, Offbearer | anxious about urgent | | | [...] | | 2018 | | | D, Offbearer | about coverage. ) | +--------+ + + + + | 07/30/ | Telephone | Cardiology | Ashley Chávez | Other (Patient | | 2019 | | | D, Offbearer | concerns ) | +--------+ + + + + | 07/24/ | Telephone | Cardiology | Ashley Chávez | Other (Patient is | | 2018 | | | D, Offbearer | worried about paying | | | [...] | Cardiology | Ashley Chávez | Talia (Patient | | 2018 | | | D, Offbearer | called to cancel her | | | | | | appointment) | +--------+ + + + + | 06/27/ | Office | Cardiology | Yecenia Coronado, | Hypertension, | | 2018 | Visit | | MD | unspecified type | | | | | | (Primary Dx); | | | | | | Bradycardia | +--------+ + + + + | 05/16/ | Orders Only | | Provider, | | | 2018 | | | Cheli, | | +--------+ + + + + [...] + | Pulse | 85 | 07/19/2019 1040 PDT | + + + + | Temperature | 37.1 C (98.8 F) | 03/06/2015905 PDT | + + + + | Respiratory Rate | 20 | 07/06/20157 PDT | + + + + | Oxygen Saturation | 93% | 07/19/20191039 PDT | + + + + | Inhaled Oxygen | - | - | | Concentration | | | + + + + | Weight | 136.5 kg (301 lb) | 07/19/20191039 PDT | + + + + | Height | 170.2 cm (5' 7") | 07/19/20191039 PDT | + + + + | Body Mass Index | 47.14 | 07/19/20191039 PDT | + + + + Plan of Treatment +--------+---------+ + + + | Date | Type | Specialty | Care Team | Description | +--------+---------+ + + + | 10/11/ | Office | Cardiology | Desiree Pteerson DO | | | 2019 | Visit | | [address] | | | | | | [place] | | | | | | [address] | | | | | | | [...] | [employer] - | | 04/02/ | [id number] | | 5ccImplanted: Qty: 1 on | [...] N/A: | SOFAMOR | | 01/21/ | [id number] | | [id number]: Qty: 1 on | | Spine | [...] N/A: | SOFAMOR | | 01/11/ | 114048 | | [id number]: Qty: 1 on | | Spine | [...] | N/A: | SOFAMOR | | | [id number] | | 4.75 - [id number]: | | Spine | DANEK - DIV | | | 0 / / | | Qty: 4 on 07/02/2014 by | | Lumbar | [employer] | | | | | Frandy Teresa DO | | | - SFDK | | | | + +------+--------+ +--------+--------+--------+ | RodImplanted: Qty: 1 on | | N/A: | | | | [id number] | | 07/02/2014 by Frandy Teresa | | Spine | | | | 540 / | | A, DO | | Lumbar | | | | / | + +------+--------+ +--------+--------+--------+ | RodImplanted: Qty: 1 on | | N/A: | MEDTROL - | | | [id number] | | 07/02/2014 by Frandy Teresa | | Spine | MDTR | | | 545 / | | A, DO | | Lumbar | | | | / | + +------+--------+ +--------+--------+--------+ | Screw 7.5x50mm Sextant - | | N/A: | [employer] - | | | [id number] | | [id number]: Qty: 1 on | | Spine | MEDT | | | [id number] | | 07/02/2014 by Frandy Teresa | | Lumbar | | | | / / | | A, DO | | | | | | | + +------+--------+ +--------+--------+--------+ | Cannulated ScrewImplanted: | | N/A: | MEDTROL - | | | [id number] | | Qty: 1 on 07/02/2014 by | | Spine | MDTR | | | [id number] | | Frandy Teresa DO | | Lumbar | | | | / / | + +------+--------+ +--------+--------+--------+ | Cannulated ScrewImplanted: | | N/A: | [employer] - | | | [id number] | | Qty: 1 on 07/02/2014 by | | Spine | MEDT | | | [id number] | | Frandy Teresa DO | | [...] +--------+ +---------+--------+ | MEDICARE | MEDICA | [id number] | 02/22/20 | [phone] | | Medica | | | RE | | 09-Pre | 5 | | re | | | PART A | | sent | | | | | | AND B | | | | | | + +--------+ +--------+ +---------+--------+ | MEDICARE | MEDICA | [id number] | 02/22/20 | [phone] | | Medica [...] | + +--------+ +--------+ + + | Jewkes,Cindy L | Person | Self [birth year] | [address] | | | al/Fam | | 1955 | [phone] | [address] [place], [place] | | | [place]onte | | | [address] (Home) | [address] | + +--------+ +--------+ + + | Cindy Arndt | Person | Self | [birth year] | [address] | | | al/Fam | | 1955 | [phone] | [address] [place], [place] | | | [place] | | | [address] (Home) | [address] | + +--------+ +--------+ + + Advance Directives Patient has advance care planning documents, and code status on file. For more information, please contact:[facility] [place] [address] + + + + + | Code Status | Date | Date | Comments | | | Activated | Inactivated | | + + + + + | Full Code | 07/02/2014 | 07/05/2014 | | | | 16:37 | 19:39 | | + + + + +
--- OUTSIDE RECORDS SUMMARY | ~2019-08-15 | XMS | Encounter Summary ---
Demographics + + + | Address | [address] | | | [place] [address] | + + + | Home Phone [...] [place] | | | | | [address] | | + + + + + Care Team Providers + +------+ + | Care Perinatal Educator Name | Role | Phone | [...] + | 06/28/ | Telephone | [facility] | Ashley Chávez | Other (Patient | | 2019 | | CARDIOLOGY [place], Automotive Dismantler | called to cancel her | | | | [address] | | appointment) | | | | [place] | | | | | | [address] | | | | | | [phone] | | | +--------+ + + + [...] [place] | | | | | | [address] | | | | | | | | +--------+---------+ + + + documented as of this encounter Visit Diagnoses Not on filedocumented in this encounter"
--- OUTSIDE RECORDS SUMMARY | ~2019-08-15 | XMS | Encounter Summary ---
Demographics + + + | Address | [address] | | | [place] [address] | + + + | Home Phone [...] [place] | | | | | [address] | | + + + + + Care Team Providers + +------+ + | Care Referral Agent Name | Role | Phone | [...] | 2019 | | CARDIOLOGY [place] Abad, Pharmacy Technician | concerns ) | | | | [address] | | | | | | [place] | | | | | | [address] | | | | | | [phone] | | | +--------+ + + + [...] | | | | | [place] | | | | | | [address] | | | | | | | | +--------+---------+ + + + documented as of this encounter Visit Diagnoses Not on filedocumented in this encounter"
--- OUTSIDE RECORDS SUMMARY | ~2019-08-15 | XMS | Clinical Summary ---
Demographics + + + | Address | [address] | | | [place] [address] | + + + | Home Phone [...] [place] | | | | | [address] | | + + + + + Care Team Providers + +------+ + | Care Pressed Or Blown Glass Worker Name | Role | Phone | + +------+ + PCP | Unavailable | + +------+ + Source Comments EDWARD is fully live on both [facility] Amb[facility] and [facility] InPatient.[facility] Allergies Not on [...] | MEDICA | xxxxxxxxxx | 02/22/20 | [phone] | [address] | Medica | | | RE A & | | 15-Pre | 1 | [phone] | re | | | B | | sent | | [place] | | | | | | | | [address] | | + +--------+ +--------+ + +--------+ + +--------+ +--------+ + + | Guarantor Name | Accoun | Relation to | Date | Phone | Billing Address | | | t Type | Patient | of | | | | | | | | | | + +--------+ +--------+ + + | CINDY ARNDT | Person | Self [birth year] | [address] | | | al/Fam | | 1955 | [phone] | [address] [place] | | | [place] | | | [address] (Home) | [address] | + +--------+ +--------+ + +"
--- OUTSIDE RECORDS SUMMARY | ~2019-08-15 | XMS | Encounter Summary ---
Demographics + + + | Address | [address] | | | [place] [address] | + + + | Home Phone [...] [place] | | | | | [address] | | + + + + + Care Team Providers + +------+ + | Care Assembler Dielectric Heater Name | Role | Phone | [...] + + | 08/13/ | Documentati | [facility] | Katharine Moncada, | Other (urgent | | 2019 | on | CARDIOLOGY [place] | Technologist | report) | | | | [address] | | | | | | [place] | | | | | | [address] | | | | | | [phone] | | | +--------+ + + + [...] [place] | | | | | | [address] | | | | | | | | +--------+---------+ + + + documented as of this encounter Visit Diagnoses Not on filedocumented in this encounter"
--- OUTSIDE RECORDS SUMMARY | ~2019-08-15 | XMS | Encounter Summary ---
Demographics + + + | Address | [address] | | | [place] [address] | + + + | Home Phone [...] [place] | | | | | [address] | | + + + + + Care Team Providers + +------+ + | Care Net Ui Developer Name | Role | Phone [...] 2019 | | CARDIOLOGY [place] Abad, Information Officer | worried about paying | | | | [address] | | for monitor. ) | | | | [place], [place] | | | | | | [address] | | | | | | [phone] | | | +--------+ + + + [...] [place] | | | | | | [address] | | | | | | | | +--------+---------+ + + + documented as of this encounter Visit Diagnoses Not on filedocumented in this encounter"
--- OUTSIDE RECORDS SUMMARY | ~2019-08-15 | XMS | Encounter Summary ---
Demographics + + + | Address | [address] | | | [place] [address] | + + + | Home Phone [...] [address] | | | | | [address] | | + + + + + Care Team Providers + +------+ + | Care Power Builder Developer Name | Role | Phone | [...] | 2019 | | CARDIOLOGY [place] Abad, Cull Grader | about coverage. ) | | | | [address] | | | | | | [facility] [place] | | | | | | [address] | | | | | | [phone] | | | +--------+ + + + [...] [place] | | | | | | [address] | | | | | | | | +--------+---------+ + + + documented as of this encounter Visit Diagnoses Not on filedocumented in this encounter"
--- OUTSIDE RECORDS SUMMARY | ~2019-08-15 | XMS | Encounter Summary ---
Demographics + + + | Address | [address] | | | [place] [address] | + + + | Home Phone [...] [place] | | | | | [address] | | + + + + + Care Team Providers + +------+ + | Care Hydroelectric Station Operator Chief Name | Role | Phone | [...] | Transcriptions | + + | Interface, Head Filter Press Tender In - 10/24/2006 3:09 AM PST | | [facility] | | [address] [place], [place] [address] [place] | | [facility] HospitalOPERATION RECORDMed Rec No.: [id number] Date: | [...]
--- OUTSIDE RECORDS SUMMARY | ~2019-08-15 | XMS | Encounter Summary ---
Demographics + + + | Address | [address] | | | [place] [address] | + + + | Home Phone [...] [place] | | | | | [place] | | | | | [address] | | + + + + + Care Team Providers + +------+ + | Care Stone Gluer Name | Role | Phone | [...] + | 08/15/ | Documentati | [facility] | Katharine Moncada, | Other (urgent | | 2019 | on | CARDIOLOGY [place] | Technologist | report) | | | | [address] | | | | | | [place] | | | | | | [address] | | | | | | [phone] | | | +--------+ + + + [...] [place] | | | | | | [address] | | | | | | | | +--------+---------+ + + + documented as of this encounter Visit Diagnoses Not on filedocumented in this encounter"
--- OUTSIDE RECORDS SUMMARY | ~2019-08-15 | XMS | Encounter Summary ---
Demographics + + + | Address | [address] [facility] [address] | | | [place] [address] | + + + | Home Phone [...] [place] | | | | | [address] | | + + + + + Care Team Providers + +------+ + | Care Environmental Protection Economist Name | Role | Phone | [...] | | | | | | [place] [address] | | | | | | [phone] | | | | | | | [...] in | | | | | | [place] with a | | | | | [...] | | | | | | [facility] | | | | | | Laboratory, [place], | | | | | | [place], delivered | | | | | | [...] by | | | | | | [id number]: | | | | | | Increased [...] [id number]: | | | | | | [id number] stain | | | | | | [...] | + + + + + | [facility] | [address] | [place] [address] | | | PATHOLOGY | [place] | | | + + + + + documented in this encounter Visit Diagnoses Not on filedocumented in this encounter
--- OUTSIDE RECORDS SUMMARY | ~2019-08-15 | XMS | Encounter Summary ---
Demographics + + + | Address | [address] [facility] [address] | | | [place] [address] | + + + | Home Phone [...] [place] | | | | | [address] | | + + + + + Care Team Providers + +------+ + | Care Civil Celebrant Name | Role | Phone | + [...] | | | | | | [place] | | | | | | [place] [address] | | | | | | [phone] | | | +--------+ + + + [...] + +---------+ + + | [facility] DEPARTMENT OF | | | | | RADIOLOGY | | | | + +---------+ + + documented in this encounter Visit Diagnoses Not on filedocumented in this encounter"
--- OUTSIDE RECORDS SUMMARY | ~2019-08-15 | XMS | Encounter Summary ---
Demographics + + + | Address | [address] | | | [place] [address] | + + + | Home Phone [...] [place] | | | | | [address] | | + + + + + Care Team Providers + +------+ + | Care Truckload Owner Operator Name | Role | Phone | [...] + + | 08/13/ | Documentati | [facility] | Katharine Moncada, | Other (urgent | | 2019 | on | CARDIOLOGY [place] | Technologist | report) | | | | [address] | | | | | | [place] | | | | | | [address] | | | | | | [phone] | | | +--------+ + + + [...] [place] | | | | | | [address] | | | | | | | | +--------+---------+ + + + documented as of this encounter Visit Diagnoses Not on filedocumented in this encounter"
--- OUTSIDE RECORDS SUMMARY | ~2019-08-15 | XMS | Encounter Summary ---
Demographics + + + | Address | [address] | | | [place] [address] | + + + | Home Phone [...] [place] | | | | | [address] | | + + + + + Care Team Providers + +------+ + | Care Dictionary Editor Name | Role | Phone | [...] | | 2019 | on | CARDIOLOGY [place] | Technologist | report) | | | | [address] | | | | | | [place] | | | | | | [address] | | | | | | [phone] | | | +--------+ + + + [...] [place] | | | | | | [address] | | | | | | | | +--------+---------+ + + + documented as of this encounter Visit Diagnoses Not on filedocumented in this encounter"
--- OUTSIDE RECORDS SUMMARY | ~2019-08-15 | XMS | Clinical Summary ---
Demographics + + + | Address | [address] | | | [place] [address] | + + + | Home Phone [...] [address] | | | | | [place] | | | | | [address] | | + + + + + Care Team Providers + +------+ + | Care Vp Cardiovascular Service Line Name | Role | Phone | [...] | | Activ | | (VITAMIN D-3) 23140 | mouth Once a week. | | [...] | | | ([facility]) | | [...] | | | | e | | (e-Go aeroplanes VERIO FLEX | | | | | [...] | | + + + +---------+------+------+-------+ | [place]-3 Fatty | Take 1,000 mg by [...] | | 2018 | | | D, Stablehand | anxious about urgent | | | [...] 08/09/ | Clinical | Cardiology | Desiree Petesron DO | Syncope, unspecified | | 2018 | Support | | Dora De La Torre | syncope type | | | | | CAROLINE Mendez | | +--------+ + + + + | 08/08/ | Telephone | Cardiology | Ashley Chávez | Other (Questions | | 2018 | | | D, Stablehand | about coverage. ) | +--------+ + + + + | 07/30/ | Telephone | Cardiology | Ashley Chávez | Other (Patient | | 2019 | | | D, Stablehand | concerns ) | +--------+ + + + + | 07/24/ | Telephone | Cardiology | Ashley Chávez | Other (Patient is | | 2018 | | | D, Stablehand | worried about paying | | | [...] | | 2018 | | | D, Stablehand | called to cancel her | | [...] [place] | | | | | | [address] | | | | | | | [...] | [employer] - | | 04/02/ | [id number] | | 5ccImplanted: Qty: 1 on | [...] N/A: | SOFAMOR | | 01/21/ | [id number] | | [id number]: Qty: 1 on | | Spine | [...] N/A: | SOFAMOR | | 01/11/ | [id number] | | [id number]: Qty: 1 on | | Spine | [...] | N/A: | SOFAMOR | | | [id number] | | 4.75 - [id number]: | | Spine | DANEK - DIV | | | 0 / / | | Qty: 4 on 07/02/2014 by | | Lumbar | [employer] | | | | | Frandy Teresa DO | | | - SFDK | | | | + +------+--------+ +--------+--------+--------+ | RodImplanted: Qty: 1 on | | N/A: | | | | [id number] | | 07/02/2014 by Frandy Teresa | | Spine | | | | 540 / | | A, DO | | Lumbar | | | | / | + +------+--------+ +--------+--------+--------+ | RodImplanted: Qty: 1 on | | N/A: | MEDTROL - | | | [id number] | | 07/02/2014 by Frandy Teresa | | Spine | MDTR | | | 545 / | | A, DO | | Lumbar | | | | / | + +------+--------+ +--------+--------+--------+ | Screw 7.5x50mm Sextant - | | N/A: | [employer] - | | | [id number] | | [id number]: Qty: 1 on | | Spine | MEDT | | | [id number] | | 07/02/2014 by Frandy Teresa | | Lumbar | | | | / / | | A, DO | | | | | | | + +------+--------+ +--------+--------+--------+ | Cannulated ScrewImplanted: | | N/A: | MEDTROL - | | | [id number] | | Qty: 1 on 07/02/2014 by | | Spine | MDTR | | | [id number] | | Frandy Teresa DO | | Lumbar | | | | / / | + +------+--------+ +--------+--------+--------+ | Cannulated ScrewImplanted: | | N/A: | [employer] - | | | [id number] | | Qty: 1 on 07/02/2014 by | | Spine | MEDT | | | [id number] | | Frandy Teresa DO | | [...] +--------+ +---------+--------+ | MEDICARE | MEDICA | [id number] | 02/22/20 | [phone] | | Medica | | | RE | | 09-Pre | 5 | | re | | | PART A | | sent | | | | | | AND B | | | | | | + +--------+ +--------+ +---------+--------+ | MEDICARE | MEDICA | [id number] | 02/22/20 | [phone] | | Medica [...] [place] | | | 8 (Home) | [address] | + +--------+ +--------+ + + | Cindy Arndt | Person | Self | [birth year] | [address] | | | al/Fam | | 1955 | [phone] | [address] [place], [place] | | | [place] | | | [address] (Home) | [address] | + +--------+ +--------+ + + Advance Directives Patient has advance care planning documents, and code status on file. For more information, please contact:[facility] [place] [place] [address] + + + + + | Code Status | Date | Date | Comments | | | Activated | Inactivated | | + + + + + | Full Code | 07/02/2014 | 07/05/2014 | | | | 16:37 | 19:39 | | + + + + +
--- OUTSIDE RECORDS SUMMARY | ~2019-08-15 | XMS | Clinical Summary ---
Demographics + + + | Address | [address] | | | [place] [address] | + + + | Home Phone [...] | Author | [facility] (Historical as of | | | 06-09-19) | + + + | Organization | [facility] (Historical as of | | | [...] Providers + +------+ + | Care Director Clinical Data Name | Role | Phone | + [...] | | Activ | | (VITAMIN D3) 94544 | a week. | | | | [...] + | T2DM (type 2 diabetes mellitus) ([facility]) | 04/13/2013 | + + [...] +------+-------+ + | MEDICARE | MEDICA | [id number] | | | [address] | | | RE | | | | [place] [phone] | | | IP-OP | | | [...] Self | [birth year] | Home: | [address] | | | al/Fam | | 1955 | [phone] [address] [place] | | | [place] | | | [phone] | + +--------+ +--------+ + +
--- OUTSIDE RECORDS SUMMARY | ~2019-08-15 | XMS | Encounter Summary ---
Demographics + + + | Address | [address] | | | [place] [address] | + + + | Home Phone [...] | Araceli Sibley | ECON | [address] | | | | | [place] | | | | | [address] | | + + + + + Care Team Providers + +------+ + | Care Research & Analytics Manager Name | Role | Phone | [...] + + | 08/08/ | Telephone | [facility] | Ashley Chávez | Other (Questions | | 2019 | | CARDIOLOGY [place], Marketing Finance Manager | about coverage. ) | | | | [address] | | | | | | [facility] [place] | | | | | | [address] | | | | | | [phone] | | | +--------+ + + + [...] [place] | | | | | | [address] | | | | | | | | +--------+---------+ + + + documented as of this encounter Visit Diagnoses Not on filedocumented in this encounter"
--- OUTSIDE RECORDS SUMMARY | ~2019-08-15 | XMS | Encounter Summary ---
Demographics + + + | Address | [address] | | | [place] [address] | + + + | Home Phone [...] [address] | | | | | [address] | | + + + + + Care Team Providers + +------+ + | Care Emergency Dispatcher Name | Role | Phone | [...] [address] | [place], [place] | | | | | [facility] [address] | [address] | | | | | [place], [place] | | | | | | [address] | Dora De La Torre | | | | | [phone] | CARLOINE Mendez [address] | | | | [address] | | | | | | [place] [address] | | | | | | [phone] | | | | | | | [...] [place] | | | | | | [address] | | | | | | | | +--------+---------+ + + + documented as of this encounter Visit Diagnoses + + | Diagnosis | + + | Syncope, unspecified syncope type | + + documented in this encounter"
--- OUTSIDE RECORDS SUMMARY | ~2019-08-15 | XMS | Encounter Summary ---
Demographics + + + | Address | [address] | | | [place] [address] | + + + | Home Phone [...] [place] | | | | | [address] | | + + + + + Care Team Providers + +------+ + | Care Cosmetic Sales Assistant Name | Role | Phone [...] + + | 08/15/ | Documentati | [facility] | Katharine Moncada, | Other (urgent | | 2019 | on | CARDIOLOGY [place] | Technologist | report) | | | | [address] | | | | | | [place] | | | | | | [address] | | | | | | [phone] | | | +--------+ + + + [...] | | | | | | [place] | | | | | | [address] | | | | | | | | +--------+---------+ + + + documented as of this encounter Visit Diagnoses Not on filedocumented in this encounter"
--- OUTSIDE RECORDS SUMMARY | 2019-08-15 15:28 | XMS ---
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 Security Events currently on file CRITERIA MET - 6 ED Visits in 6 Months - [facility] - Has Care Guidelines - PDMP CARE PROVIDERS Kenny Palafox DO [facility] Current PHONE: Unknown Jose Ag [facility] 01/31/2019-Current PHONE: Unknown [facility] Current PHONE: [phone] Guidelines Source: [facility] Radha Negrete Guidelines Date: 03/13/2019 Care Coordination: Mental health services are being provided by [facility].\T\nbsp; Please contact [facility] with mental health concerns.\T\nbsp; Zuleima/Philippe Woods: [phone]\T\nbsp; Moshe: [phone]. Care History Medical/Surgical 07/02/2019 [facility] - PATIENT HAS AN APT WITH [facility] ON 07/19/19. 05/08/2019 [facility] - PATIENT HAS A BIOCHEMISTRY TECHNICIAN - DR DESHAUN ACEVEDO [facility] [phone]. - PATIENT IS WORKING CLOSELY WITH [employer] IN REGARDS TO PSYCHIATRIC MEDICATIONS. ANY PSYCHIATRIC MED CHANGES AND OR ADJUSTMENTS WILL NEED TO BE REVIEWED BY AUTO WRECKER AT [employer]. 04/11/2019 [facility] - PATIENT HAS AN APT WITH DR ALAS ON 04/25/19. EKarlene. VISIT COUNT (12 MO.) 16 [facility]. TOTAL 16 NOTE: Visits indicate total known visits. ED/UCC VISIT TRACKING (12 MO.) 08/15/2019 15:26 [facility] [place] TYPE: Emergency COMPLAINT: - DIZZINESS 07/05/2019 09:03 [facility] [place] TYPE: Emergency COMPLAINT: - SYNCOPE DIAGNOSES: - Old myocardial infarction - Essential (primary) hypertension - Prsnl hx of TIA (TIA), and 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 - Other group home (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 - Allergy status to narcotic agent status - Schizophrenia, unspecified - Allergy status to oth drug/meds/biol subst status - Dizziness and giddiness - Allergy status to sulfonamides status 07/01/2019 10:58 [facility] [place] TYPE: Emergency COMPLAINT: - AMB SYNCOPE DIAGNOSES: - Allergy status to oth drug/meds/biol subst status - Essential (primary) hypertension - Syncope and collapse - Prsnl hx of TIA (TIA), and 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 - Old myocardial infarction - Allergy status to sulfonamides status - 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 - Allergy status to narcotic agent status 05/14/2019 22:02 [facility] [place] TYPE: Emergency COMPLAINT: - VOICES IN HEAD DIAGNOSES: - Essential (primary) hypertension - Prsnl hx of TIA (TIA), and 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 - Gastro-esophageal reflux disease without esophagitis - 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 - Old myocardial infarction - Suicidal ideations - Encounter for other general examination - Allergy status to sulfonamides status - Allergy status to oth drug/meds/biol subst status - Allergy status to narcotic agent status - Other group home (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 - Schizophrenia, unspecified 05/10/2019 14:24 [facility] [place] TYPE: Emergency COMPLAINT: - MEDICAL CLEARANCE DIAGNOSES: - Acquired absence of other specified parts of digestive tract - 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 - Gastro-esophageal reflux disease without esophagitis - Other group home (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 - Allergy status to oth drug/meds/biol subst status - 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 (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 of 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 - Allergy status to narcotic agent status - Schizophrenia, unspecified - Prsnl hx of TIA (TIA), and 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 - Allergy status to sulfonamides status - Essential (primary) hypertension - Old myocardial infarction 05/08/2019 15:14 [facility] [place] TYPE: Emergency COMPLAINT: - MEDICAL CLEARANCE LIFEWAYS DIAGNOSES: - Suicidal ideations - Acquired absence of other specified parts of digestive tract - Allergy status to oth drug/meds/biol subst status - Allergy status to narcotic agent status - Visual hallucinations - Gastro-esophageal reflux disease without esophagitis - Prsnl hx of TIA (TIA), and 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 - Allergy status to sulfonamides status - 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 - Essential (primary) hypertension - Auditory hallucinations 05/07/2019 10:38 [facility] [place] TYPE: Emergency COMPLAINT: - CHEST PAIN DIAGNOSES: - Essential (primary) hypertension - Allergy status to oth drug/meds/biol subst status - Gastro-esophageal reflux disease without esophagitis - Acquired absence of other specified parts of digestive tract - Prsnl hx of TIA (TIA), and 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 - Old myocardial infarction - 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 - Allergy status to sulfonamides status - Other chest pain 05/02/2019 13:59 [facility] [place] TYPE: Emergency COMPLAINT: - VOMITING, CHEST PAIN, WEAKNESS DIAGNOSES: - Allergy status to sulfonamides status - intermodal truck driver (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 of 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 - Allergy status to oth drug/meds/biol subst status - Nausea with vomiting, unspecified - Old myocardial infarction - Gastro-esophageal reflux disease without esophagitis - Essential (primary) hypertension - Dehydration - Schizoaffective disorder, unspecified - Hyperglycemia, unspecified 04/15/2019 12:21 [facility] [place] TYPE: Emergency COMPLAINT: - CHEST PAIN DIAGNOSES: - Allergy status to oth drug/meds/biol subst status - Allergy status to sulfonamides status - Prsnl hx of TIA (TIA), and 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 - Acquired absence of other specified parts of digestive tract - Other chest pain - Essential (primary) hypertension 04/11/2019 11:01 [facility] [place] TYPE: Emergency COMPLAINT: - CONFUSION,WEAKNESS, DIAGNOSES: - Allergy status to narcotic agent status - Weakness - Schizophrenia, unspecified - Allergy status to sulfonamides status - Allergy status to oth drug/meds/biol subst status - Old myocardial infarction - Prsnl hx of TIA (TIA), and 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 - Disorder of urea cycle metabolism, unspecified - Other group home (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 - Acquired absence of other specified parts of digestive tract - Essential (primary) hypertension 04/03/2019 12:30 [facility] [place] TYPE: Emergency COMPLAINT: - TROUBLE BREATHING DIAGNOSES: - Allergy status to oth drug/meds/biol subst status - 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 - Allergy status to narcotic agent status - Old myocardial infarction - Dyspnea, unspecified - Prsnl hx of TIA (TIA), and 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 - Essential (primary) hypertension - Allergy status to sulfonamides status - Acquired absence of other specified parts of digestive tract 03/23/2019 15:44 [facility] [place] TYPE: Emergency COMPLAINT: - ABNORMAL LABS DIAGNOSES: - Abnormal finding of blood chemistry, unspecified - Allergy status to narcotic agent status - Acquired absence of other specified parts of digestive tract - Essential (primary) hypertension - Other group home (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 - Prsnl hx of TIA (TIA), and 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 - Allergy status to sulfonamides status - Allergy status to oth drug/meds/biol subst status 03/19/2019 19:33 [facility] [place] TYPE: Emergency COMPLAINT: - MEDICAL CLEARANCE DIAGNOSES: - Visual hallucinations - Auditory hallucinations - Acquired absence of other specified parts of digestive tract - Prsnl hx of TIA (TIA), and 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 - Essential (primary) hypertension - Allergy status to oth drug/meds/biol subst status - Schizoaffective disorder, unspecified - Allergy status to sulfonamides status - 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 - Allergy status to narcotic agent status 03/07/2019 10:34 [facility] [place] TYPE: Emergency COMPLAINT: - CHEST PAIN DIAGNOSES: - Essential (primary) hypertension - Gastro-esophageal reflux disease without esophagitis - Edema, unspecified - Allergy status to sulfonamides status - Allergy status to oth drug/meds/biol subst status - Prsnl hx of TIA (TIA), and 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 - Precordial pain 01/30/2019 16:57 [facility] [place] TYPE: Emergency COMPLAINT: - CHEST PAIN DIAGNOSES: - Essential (primary) hypertension - 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 (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 of 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 - 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 - Allergy status to sulfonamides status - Gastro-esophageal reflux disease without esophagitis - Allergy status to other antibiotic agents status - Prsnl hx of TIA (TIA), and 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 - Other chest pain - Cough - Allergy status to oth drug/meds/biol subst status 01/09/2019 12:12 [facility] [place] TYPE: Emergency COMPLAINT: - MEDICAL CLEARANCE DIAGNOSES: - Gastro-esophageal reflux disease without esophagitis - Bariatric surgery status - intermodal truck driver (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 - 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 - Suicidal ideations - Schizoaffective disorder, unspecified - 1 Type 2 diabetes mellitus without complications - Allergy status to sulfonamides status - Allergy status to oth drug/meds/biol subst status - Major depressive disorder, single episode, unspecified - Essential (primary) hypertension - Prsnl hx of TIA (TIA), and 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 - Allergy status to narcotic agent status INPATIENT VISIT TRACKING (12 MO.) [facility] COMPLAINT: - SCHIZOAFFECTIVE D/O DIAGNOSES: - Schizoaffective disorder, unspecified [email or web address]
== END 2019-08-15 22:02 | disposition home or self-care (01) ==
LOC: ED 15:25
DX: R55 Syncope and collapse (principal); I10 Essential (primary) hypertension; K21.9 Gastro-esophageal reflux disease without esophagitis; F25.9 Schizoaffective disorder, unspecified; E11.9 Type 2 diabetes mellitus without complications; I25.2 Old myocardial infarction; Z88.2 Allergy status to sulfonamides; Z88.8 Allergy status to other drugs, medicaments and biological substances; Z79.899 Other long term (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
CPT/HCPCS: 99283

== ENCOUNTER 2019-09-06 11:40 | Emergency (ER) | payer MEDICARE ==
[~2019-09-06] VITALS: Ht 170.2 cm; Wt 134.6 kg
--- OUTSIDE RECORDS SUMMARY | ~2019-09-06 | XMS | Encounter Summary ---
Demographics + + + | Address | [address] | | | [place] [address] | + + + | Home Phone | | + + + | Preferred Language | Unknown | + + + | Marital Status | | + + + | Pentecostal Affiliation | 1013 | + + + | Race | Unknown | + + + | Ethnic Group | Unknown | + + + Author + + + | Author | [facility] | | | and [place] | + + + | Organization | [facility] | | | and [place] | + + + | Address | Unknown | + + + | Phone | Unavailable | + + + Support + + + + + | Name | Relationship | Address | Phone | + + + + + | Araceli Sibley | ECON | [place] | | | | | [address] | | + + + + + Care Team Providers + +------+ + | Care Pharmaceutical Plant Operator Name | Role | Phone | + +------+ + | Adriano Patrick MD | PCP | | + +------+ + Reason for Visit +--------+ + | Reason | Comments | +--------+ + | Other | Patient was anxious about urgent reports. | +--------+ + Encounter Details +--------+ + + + + | Date | Type | Department | Care Team | Description | +--------+ + + + + | 08/14/ | Telephone | [facility] | Ashley Chávez | Other (Patient was | | 2019 | | CARDIOLOGY [place], Supervisor Residential | anxious about urgent | | | | [address] | | reports. ) | | | | [place] | | | | | | [address] | | | | | | [phone] | | | +--------+ + + + [...] [place] | | | | | | [address] | | | | | | | | +--------+---------+ + + + documented as of this encounter Visit Diagnoses Not on filedocumented in this encounter"
--- OUTSIDE RECORDS SUMMARY | ~2019-09-06 | XMS | Encounter Summary ---
Demographics + + + | Address | [address] | | | [place] [address] | + + + | Home Phone | | + + + | Preferred Language | Unknown | + + + | Marital Status | | + + + | Episcopalian Affiliation | 1013 | + + + | Race | Unknown | + + + | Ethnic Group | Unknown | + + + Author + + + | Author | [facility] | | | and [place] | + + + | Organization | [facility] | | | and [place] | + + + | Address | Unknown | + + + | Phone | Unavailable | + + + Support + + + + + | Name | Relationship | Address | Phone | + + + + + | Araceli Sibley | ECON | [place] | | | | | [address] | | + + + + + Care Team Providers + +------+ + | Care Director Of Marketing Operations Name | Role | Phone | + +------+ + | Natalee Andersen NP | PCP | | + +------+ + Reason for Visit +--------+ + | Reason | Comments | +--------+ + | Other | | +--------+ + Encounter Details +--------+ + + + + | Date | Type | Department | Care Team | Description | +--------+ + + + + | 05/13/ | Telephone | [facility] | rFandy Teresa, | Other | | 2013 | | NEUROSURGERY [address] | DO [address] | | | | | [address] | [address] [place], [place] | | | | | [place], [place] | [id number] | | | | | [address] | | | | | | [phone] | | | +--------+ + + + [...] | | | | | [place] | | | | | | [address] | | | | | | | | +--------+---------+ + + + documented as of this encounter Visit Diagnoses Not on filedocumented in this encounter"
--- OUTSIDE RECORDS SUMMARY | ~2019-09-06 | XMS | Encounter Summary ---
Demographics + + + | Address | [address] | | | [place] [address] | + + + | Home Phone | | + + + | Preferred Language | Unknown | + + + | Marital Status | | + + + | Taoist Affiliation | 1013 | + + + | Race | Unknown | + + + | Ethnic Group | Unknown | + + + Author + + + | Author | [facility] | | | and [place] | + + + | Organization | [facility] | | | and [place] | + + + | Address | Unknown | + + + | Phone | Unavailable | + + + Support + + + + + | Name | Relationship | Address | Phone | + + + + + | rAaceli Sibley | ECON | [place] | | | | | [address] | | + + + + + Care Team Providers + +------+ + | Care Fashion Photographer Name | Role | Phone | + [...] | | | spondylolist | | [address] | | | | | hesis | | [place], | | | | | Spinal | | [place] [address] | | | | | stenosis, | | Phone: | | | | | lumbar | | [phone] | | | | | region, | | Fax: | | | | | without | | [phone] | | | | | neurogenic | [...] | | | | | | | [facility] | | | | | | [...] | | | | | | [facility]ON [place] | | | | | | | [...] | | | | | | [facility]G [facility] | | | | | | | [...] +--------+--------+ + + + + Encounter Details +--------+---------+ + + + | Date | Type | Department | Care Team | Description | +--------+---------+ + + + | 07/02/ | Surgery | [facility] | Frandy Teresa, | MIS L5-S1 | | 2013 | | MED CTR OR INTRA OP | DO [address] | TRANSFORAMINAL | | | | [address] | [address] [place], [place] | LUMBAR INTERBODY | | | | [place] | [id number] | FUSION | | | | [address] | | | | | | [phone] | | | +--------+---------+ + + + Social History + +-------+ [...] + + documented as of this encounter Last Filed Vital Signs + + + + + | Vital Sign | Reading | Time Taken | Comments | + + + + + | Blood Pressure | 158/76 | 07/05/2014 4:00 PM | | | | | PDT | | + + + + + | Pulse | 74 | 07/05/2014 4:00 PM | | | | | PDT | | + + + + + | Temperature | 35.8 C (96.4 F) | 07/05/2014 4:00 PM | | | | | PDT | | + + + + + | Respiratory Rate | 16 | 07/05/2014 4:00 PM | | | | | PDT | | + + + + + | Oxygen Saturation | 92% | 07/05/2014 4:00 PM | | | | | PDT | | + + + + + | Inhaled Oxygen | - | - | | | Concentration | | | | + + + + + | Weight | 136.1 kg (300 lb) | 07/02/2014 9:48 AM | | | | | PDT | | + + + + + | Height | 170.2 cm (5' 7") | 07/02/2014 9:48 AM | | | | | PDT | | + + + + + | Body Mass Index | 46.99 | 07/02/2014 9:48 AM | | | | | PDT | | + + + + + documented in this encounter Discharge Summaries Frandy Teresa DO - 07/05/2014 1:21 PM PDTFormatting of this note might be different fro m the original. [facility] DISCHARGE SUMMARY PATIENT NAME: Cindy Arndt : 1955 TODAY'S DATE: 07/05/2014 Primary Care Physician: Natalee Andersen DATE OF ADMISSION: 07/02/2014 DATE OF DISCHARGE: 07/05/2014 ADMISSION DIAGNOSES 1. Lumbar stenosis 2. Lumbar radiculopathy 3. Lumbar spondylosis 4. obesity DISCHARGE DIAGNOSES 1. Lumbar fusion PROCEDURES PERFORMED: L5-S1 TLIF (if applicable, see operative note for details) COURSE IN HOSPITAL: Tolerated procedure well. Afebrile and ambulating progressively, but remains fatigued and weak in bilateral LE. Stable for discharge to SNF. DISPOSITION: SNF ([facility]) DISCHARGE MEDICATIONS Medications prior to admission that will be resumed at discharge: Medication Sig Dispense Refill asenapine (SAPHRIS) [address] 10 mg under the tongue nightly. atenolol (TENORMIN) 50 mg tablet Take 25 mg by mouth nightly. B Complex Vitamins (VITAMIN B COMPLEX PO) Take 1 capsule by mouth Daily. Calcium Citrate 1040 MG TABS Take 1,040 mg by mouth Daily. Cholecalciferol (VITAMIN D3) 2000 UNITS CAPS Take 2,000 Units by mouth 2 times daily. Cyanocobalamin (VITAMIN B12 PO) Place 2,500 mcg under the tongue Daily. Digestive Enzymes (PAPAYA ENZYME PO) Take 2 capsules by mouth 3 times daily. divalproex (DEPAKOTE) 500 mg EC tablet 1250mg by mouth at bedtime fluocinonide (LIDEX) 0.05 % ointment Apply to affected area twice daily as needed levothyroxine (SYNTHROID) 100 mcg tablet Take 100 mcg by mouth Daily. lisinopril (PRINIVIL, ZESTRIL) 10 mg tablet Take 10 mg by mouth Daily. Magnesium 250 MG TABS Take 2 tablets by mouth nightly. Melatonin [address] 5 mg under the tongue nightly. metFORMIN (GLUCOPHAGE) 500 mg tablet Take 500 mg by mouth as needed. metFORMIN (GLUCOPHAGE-XR) 500 mg 24 hr tablet Take 500 mg by mouth 2 times daily. Multiple Vitamins-Minerals (CENTRUM SILVER PO) Take 1 tablet by mouth Daily. OLANZapine zydis (ZYPREXA ZYDIS) 15 MG disintegrating tablet Take 15 mg by mouth nightl y. [place]-3 Fatty Acids (FISH OIL CONCENTRATE) 1000 MG CAPS Take 1,000 mg by mouth 3 times daily. omeprazole (PRILOSEC) 40 MG capsule Take 40 mg by mouth Daily. PARoxetine (PAXIL) 20 mg tablet Take 20 mg by mouth Daily. tocopherol (VITAMIN E) 400 units capsule Take 400 Units by mouth 2 times daily. UNCODED MEDICATION Diagnosis: Obstructive Sleep Apnea ICD-9: 327.23 Length of Need: 99 Months 1 Device 0 New medications prescribed at discharge: Medication Sig Dispense Refill diazepam (VALIUM) 5 mg tablet Take 1 tablet by mouth every 6 hours as needed. 60 table t 0 HYDROcodone-acetaminophen (NORCO) 10-325 mg per tablet Take 1-2 tablets by mouth every 4 hours as needed for Pain. 60 tablet 0 Lactulose SOLN Take 30 mLs by mouth every 6 hours as needed (Constipation). 240 mL 1 There is no immunization history on file for this patient. DISCHARGE INSTRUCTIONS: No lifting anything greater than 5lbs. No bending, twisting or l ifting. Keep brace on at all times, except while sleeping. Follow lumbar precautions. PLAN FOR FOLLOW-UP:Dr. Teresa in 4 weeks Follow Up Appointments: No discharge procedures on file. Electronically signed by: Chris Nicole PA-C, 07/05/2014 13:21 documented in this en counter Discharge Instructions Instructions Chris Nicole PA-C - 07/05/2014No lifting anything greater than 5lbs. No bending, twisting or lifting. Keep brace on at all times, except while sleeping. Follow fabio chiu precautions. documented in this encounter Medications at Time of Discharge [...] + + + +---------+ + + | [place]-3 Fatty | Take 1,000 mg by | [...] documented as of this encounter Progress Notes Frandy Teresa DO - 07/05/2014 7:25 AM PDTFormatting of this note might be different fro m the original. Subjective The patient was seen and examined by me today. She says she is concerned about going home due to lack of help. She would prefer SNF after giving it some thought. Her preoperative pain is improved. Her surgical pain continues to be a complaint, but she is often found asleep. Objective Filed Vitals: 07/05/14 0057 BP: 146/56 Pulse: 75 Temp: 36.6 C (97.9 F) Resp: 18 All Component Based Labs (Last 24 hours) None Level of consciousness: Alert and orientated to person, place, and time. Motor: Moving all extremities well. Sensations: Sensation intact. Incision: Dressing is clean, dry, and intact. Assessment Cindy Arndt is a 58 y.o. y.o. female s/p TLIF L5-S1 postoperative day # 3. Plan -Doing well -Increase diet/activity -PT/OT -Pain control -DVT prophylaxis -DC plan: SNF versus home with [facility] any time. aria T Neff RN - 07/04/2014 6:56 PM PDTFoley cath dc'd and MARI drain dc'd no problems. Chris Lynn PA-C - 07/04/2014 7:43 AM PDT [facility] PROGRESS NOTE Pt. Name/Age/: Cindy Arndt 58 y.o. 1955 Med. Record Number: [id number] Date of admission: 07/02/2014 Subjective: The patient chart and medications were reviewed in detail and the patient was s een and examined. The patient c/o surgical low back pain. States that her left leg hurts, but her foot is no longer numb. She states she had a rough night because she didn't get her pain meds. Objective: Temp: 37.1 C (98.7 F) BP: 145/68 mmHg Pulse: 76 Resp: 17 SpO2: 90 % on Min/Max Temp past 24 hours:Temp Av C (98.6 F) Min: 36.8 C (98.2 F) Max: 37. 3 C (99.1 F) Intake/Output Summary (Last 24 hours) at 07/04/14 0745 Last data filed at 07/04/14 0620 Gross per 24 hour Intake 3307 ml Output 5005 ml Net -1698 ml Wt. Admission: Weight: 136.079 kg (300 lb) Wt. Current: Weight: 136.079 kg (300 lb) Exam: General: NAD, AAO Extremities: MAEW Skin: Incisions c/d/i. Left anterior dysesthesias Neurological: stable Diagnostic studies: Available data and images were reviewed personally. See reports. Signi ficant results and findings are addressed here or in the Assessment and Plan. Assessment and Plan: S/P L5-S1 TLIF POD#2 PT/OT Will change pain medications around Encourage activity, OOB to chair at least TID Type II diabetic, chronic schizophrenia and Bipolar, please continue home medications. D/C plan: Home tomorrow with [facility]. D/c mari drain and riley cath today. 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 Patient Active Problem List Diagnosis LUMBAR DISC DISPLACEMENT HYPERTENSION HYPOTHYROIDISM GERD BACK PAIN, LUMBAR, WITH RADICULOPATHY IMPAIRED FASTING GLUCOSE SCHIZOAFFECTIVE DISORDER, BIPOLAR KNEE PAIN, BILATERAL DEGENERATIVE DISC DISEASE, LUMBAR SPINE BACK PAIN, LUMBAR SOMATIC DYSFUNCTION, SPINE, SACRAL OBSTRUCTIVE SLEEP APNEA HYPERLIPIDEMIA SINUSITIS DIABETES MELLITUS OSTEOARTHRITIS, KNEES, BILATERAL DISTURBANCE OF SKIN SENSATION SPINAL STENOSIS, LUMBAR OBESITY Neuropathy Stomach ulcer Gastric reflux Anxiety Anemia Irregular heartbeat Depression Migraine Schizophrenia Electronically signed by: Chris Nicole, 07/04/2014 7:45 [facility] hCris Lynn PA-C - 07/03/2014 7:13 AM PDT . [facility] PROGRESS NOTE Pt. Name/Age/: Cindy Arndt 58 y.o. 1955 Med. Record Number: [id number] Date of admission: 07/02/2014 Subjective: The patient chart and medications were reviewed in detail and the patient was s een and examined. The patient c/o surgical low back pain. States that her left leg hurts with left foot numb ness. Objective: Temp: 36.3 C (97.3 F) BP: 110/51 mmHg Pulse: 84 Resp: 18 SpO2: 92 % on Min/Max Temp past 24 hours:Temp Av.7 C (98.1 F) Min: 36.1 C (97 F) Max: 37. 7 C (99.9 F) Intake/Output Summary (Last 24 hours) at 07/03/14 0713 Last data filed at 07/03/14 0640 Gross per 24 hour Intake 3237.2 ml Output 2275 ml Net 962.2 ml Wt. Admission: Weight: 136.079 kg (300 lb) Wt. Current: Weight: 136.079 kg (300 lb) Exam: General: NAD, AAO Extremities: MAEW Skin: Incisions c/d/i. Diminished sensation to left foot. Left anterior dysesthesias Neurological: stable Diagnostic studies: Available data and images were reviewed personally. See reports. Signi ficant results and findings are addressed here or in the Assessment and Plan. Assessment and Plan: S/P L5-S1 TLIF POD#1 PT/OT Will change pain medications around Encourage activity, OOB to chair at least TID MARI intact ~20cc Patient Active Problem List Diagnosis LUMBAR DISC DISPLACEMENT HYPERTENSION HYPOTHYROIDISM GERD BACK PAIN, LUMBAR, WITH RADICULOPATHY IMPAIRED FASTING GLUCOSE SCHIZOAFFECTIVE DISORDER, BIPOLAR KNEE PAIN, BILATERAL DEGENERATIVE DISC DISEASE, LUMBAR SPINE BACK PAIN, LUMBAR SOMATIC DYSFUNCTION, SPINE, SACRAL OBSTRUCTIVE SLEEP APNEA HYPERLIPIDEMIA SINUSITIS DIABETES MELLITUS OSTEOARTHRITIS, KNEES, BILATERAL DISTURBANCE OF SKIN SENSATION SPINAL STENOSIS, LUMBAR OBESITY Neuropathy Stomach ulcer Gastric reflux Anxiety Anemia Irregular heartbeat Depression Migraine Schizophrenia Electronically signed by: Chris Nicole, 07/03/2014 7:13 [facility] Ton Johnston, KRIS - 07/03/2014 6:50 AM PDTRemoved continuous oximeter for oxygenation studies.Elec tronically signed by Regina Smith RRT at 07/03/2014 6:58 AM PDTdocumented in this encounter Plan of Treatment +--------+---------+ + + + | Date | Type | Specialty | Care Team | Description | +--------+---------+ + + + | 10/11/ | Office | Cardiology | Desiree Peterson DO | | | 2019 | Visit | | [address] | | | | | | [place] | | | | | | [address] | | | | | | | | +--------+---------+ + + + documented as of this encounter Procedures + +--------+ + + + | Procedure Name | Priori | Date/Time | Associated Diagnosis | Comments | | | ty | | | | + +--------+ + + + | POC GLUCOSE | Routin | 07/05/2014 | | Results for this | | | e | 5:14 PM | | procedure are in the | | | | PDT | | results section. | + +--------+ + + + | POC GLUCOSE | Routin | 07/05/2014 | | Results for this | | | e | 11:47 AM | | procedure are in the | | | | PDT | | results section. | + +--------+ + + + | POC GLUCOSE | Routin | 07/05/2014 | | Results for this | | | e | 6:54 AM | | procedure are in the | | | | PDT | | results section. | + +--------+ + + + | POC GLUCOSE | Routin | 07/04/2014 | | Results for this | | | e | 8:55 PM | | procedure are in the | | | | PDT | | results section. | + +--------+ + + + | POC GLUCOSE | Routin | 07/04/2014 | | Results for this | | | e | 5:55 PM | | procedure are in the | | | | PDT | | results section. | + +--------+ + + + | POC GLUCOSE | Routin | 07/04/2014 | | Results for this | | | e | 11:36 AM | | procedure are in the | | | | PDT | | results section. | + +--------+ + + + | POC GLUCOSE | Routin | 07/04/2014 | | Results for this | | | e | 8:15 AM | | procedure are in the | | | | PDT | | results section. | + +--------+ + + + | POC GLUCOSE | Routin | 07/03/2014 | | Results for this | | | e | 8:38 PM | | procedure are in the | | | | PDT | | results section. | + +--------+ + + + | POC GLUCOSE | Routin | 07/03/2014 | | Results for this | | | e | 4:25 PM | | procedure are in the | | | | PDT | | results section. | + +--------+ + + + | XR LUMBAR SPINE 2 OR | Routin | 07/03/2014 | | Results for this | | 3 VW | e | 3:32 PM | | procedure are in the | | | | PDT | | results section. | + +--------+ + + + | POC GLUCOSE | Routin | 07/03/2014 | | Results for this | | | e | 1:53 PM | | procedure are in the | | | | PDT | | results section. | + +--------+ + + + | POC GLUCOSE | Routin | 07/03/2014 | | Results for this | | | e | 6:48 AM | | procedure are in the | | | | PDT | | results section. | + +--------+ + + + | POC GLUCOSE | Routin | 07/02/2014 | | Results for this | | | e | 8:17 PM | | procedure are in the | | | | PDT | | results section. | + +--------+ + + + | RESPIRATORY THERAPY | Routin | 07/02/2014 | | | | COMMUNICATION | e | 5:19 PM | | | | | | PDT | | | + +--------+ + + + | POC GLUCOSE | Routin | 07/02/2014 | | Results for this | | | e | 5:04 PM | | procedure are in the | | | | PDT | | results section. | + +--------+ + + + | LAMINECTOMY | | 07/02/2014 | Acquired | | | PLIF/TLIF | | 11:46 AM | spondylolisthesis | | | INSTRUMENTATION | | PDT | Spinal stenosis, | | | | | | lumbar region, | | | | | | without neurogenic | | | | | | claudication | | | | | | Thoracic or | | | | | | lumbosacral neuritis | | | | | | or radiculitis, | | | | | | unspecified Lumbago | | + +--------+ + + + +---+--------+ | | Case | | | Notes | | | | | | DRILL, | | | | | | MICROS | | | COPE, | | | METRX | | | EST | | | TIME: | | | 1.5H | | | O-ARMB | | | IOLOGI | | | CS: | | | INFUSE | | | , BONE | | | CHIPS | | | | +---+--------+ | | | | | Specia | | | l | | | Needs | | | SELMA | | | | | | ESTHELA | | | - | | | MEDTRO | | | GABRIELA | +---+--------+ + +--------+ +---+ + | POC GLUCOSE | Routin | 07/02/2014 | | Results for this | | | e | 10:33 AM | | procedure are in the | | | | PDT | | results section. | + +--------+ +---+ + | TYPE AND SCREEN | Routin | 07/02/2014 | | Results for this | | | e | 10:31 AM | | procedure are in the | | | | PDT | | results section. | + +--------+ +---+ + documented in this encounter Results POC Glucose (07/05/2014 5:14 PM PDT) + +---------+ + + + | Component | Value | Ref Range | Performed | Pathologist | | | | | At | Signature | + +---------+ + + + | Glucose, | 187 (H) | 79 - 150 mg/dL | [facility] | | | P[facility] | | | [facility] | | | | | | [facility] | | | | | | [facility] - | | | | | | LABORATORY | | + +---------+ + + + + + | Specimen | + + | Blood | + + + + + + + | Performing | Address | City/State/Zipcode | Phone Number | | Organization | | | | + + + + + | [facility] | [address] | [place], [place] | [phone] | | [facility] | | [address] | | | - LABORATORY | | | | + + + + + | [facility] | [address] | [place], [place] | | | [facility] | | [address] | | | - LABORATORY | | | | + + + + + POC Glucose (07/05/2014 11:47 AM PDT) + +-------+ + + + | Component | Value | Ref Range | Performed | Pathologist | | | | | At | Signature | + +-------+ + + + | Glucose, | 137 | 79 - 150 mg/dL | [facility] | | [facility] | | [facility] | | | | | | MEDICAL | | | | | | CENTER - | | | | | | LABORATORY | | + +-------+ + + + + + | Specimen | + + | Blood | + + + + + + + | Performing | Address | City/State/Zipcode | Phone Number | | Organization | | | | + + + + + | [facility] | [address] | [place] | [phone] | | [facility] | | [address] | | | - LABORATORY | | | | + + + + + | [facility] | [address] | [place] | | | [facility] | | [address] | | | - LABORATORY | | | | + + + + + POC Glucose (07/05/2014 6:54 AM PDT) + +-------+ + + + | Component | Value | Ref Range | Performed | Pathologist | | | | | At | Signature | + +-------+ + + + | Glucose, | 128 | 79 - 150 mg/dL | [facility] | | [facility] | | [facility] | | | | | | MEDICAL | | | | | | CENTER - | | | | | | LABORATORY | | + +-------+ + + + + + | Specimen | + + | Blood | + + + + + + + | Performing | Address | City/State/Zipcode | Phone Number | | Organization | | | | + + + + + | [facility] | [address] | [place], [place] | [phone] | | [facility] | | [address] | | | - LABORATORY | | | | + + + + + | [facility] | [address] | [place], [place] | | | [facility] | | [address] | | | - LABORATORY | | | | + + + + + POC Glucose (07/04/2014 8:55 PM PDT) + +-------+ + + + | Component | Value | Ref Range | Performed | Pathologist | | | | | At | Signature | + +-------+ + + + | Glucose, | 143 | 79 - 150 mg/dL | [facility] | | [facility] | | [facility] | | | | | | MEDICAL | | | | | | CENTER - | | | | | | LABORATORY | | + +-------+ + + + + + | Specimen | + + | Blood | + + + + + + + | Performing | Address | City/State/Zipcode | Phone Number | | Organization | | | | + + + + + | [facility] | [address] | [place] | [phone] | | [facility] | | [address] | | | - LABORATORY | | | | + + + + + | [facility] | [address] | [place], [place] | | | [facility] | | [address] | | | - LABORATORY | | | | + + + + + POC Glucose (07/04/2014 5:55 PM PDT) + +-------+ + + + | Component | Value | Ref Range | Performed | Pathologist | | | | | At | Signature | + +-------+ + + + | Glucose, | 119 | 79 - 150 mg/dL | [facility] | | [facility] | | [facility] | | | | | | MEDICAL | | | | | | CENTER - | | | | | | LABORATORY | | + +-------+ + + + + + | Specimen | + + | Blood | + + + + + + + | Performing | Address | City/State/Zipcode | Phone Number | | Organization | | | | + + + + + | [facility] | [address] | [place], [place] | [phone] | | [facility] | | [address] | | | - LABORATORY | | | | + + + + + | [facility] | [address] | [place] | | | [facility] | | [address] | | | - LABORATORY | | | | + + + + + POC Glucose (07/04/2014 11:36 AM PDT) + +-------+ + + + | Component | Value | Ref Range | Performed | Pathologist | | | | | At | Signature | + +-------+ + + + | Glucose, | 127 | 79 - 150 mg/dL | [facility] | | [facility] | | | [facility] | | | | | | MEDICAL | | | | | | CENTER - | | | | | | LABORATORY | | + +-------+ + + + + + | Specimen | + + | Blood | + + + + + + + | Performing | Address | City/State/Zipcode | Phone Number | | Organization | | | | + + + + + | [facility] | [address] | [place] | [phone] | | [facility] | | [address] | | | - LABORATORY | | | | + + + + + | [facility] | [address] | [place] | | | [facility] | | [address] | | | - LABORATORY | | | | + + + + + POC Glucose (07/04/2014 8:15 AM PDT) + +-------+ + + + | Component | Value | Ref Range | Performed | Pathologist | | | | | At | Signature | + +-------+ + + + | Glucose, | 126 | 79 - 150 mg/dL | [facility] | | [facility] | | | [facility] | | | | | | MEDICAL | | | | | | CENTER - | | | | | | LABORATORY | | + +-------+ + + + + + | Specimen | + + | Blood | + + + + + + + | Performing | Address | City/State[facility] | Phone Number | | Organization | | | | + + + + + | [facility] | [address] | [place] | [phone] | | [facility] | | [address] | | | - LABORATORY | | | | + + + + + | [facility] | [address] | [place] | | | [facility] | | [address] | | | - LABORATORY | | | | + + + + + POC Glucose (07/03/2014 8:38 PM PDT) + +---------+ + + + | Component | Value | Ref Range | Performed | Pathologist | | | | | At | Signature | + +---------+ + + + | Glucose, | 156 (H) | 79 - 150 mg/dL | [facility] | | | P[facility] | | [facility] | | | | | | MEDICAL | | | | | | CENTER - | | | | | | LABORATORY | | + +---------+ + + + + + | Specimen | + + | Blood | + + + + + + + | Performing | Address | City/State/Zipcode | Phone Number | | Organization | | | | + + + + + | [facility] | [address] | [place] | [phone] | | [facility] | | [address] | | | - LABORATORY | | | | + + + + + | [facility] | [address] | [place] | | | [facility] | | [address] | | | - LABORATORY | | | | + + + + + POC Glucose (07/03/2014 4:25 PM PDT) + +-------+ + + + | Component | Value | Ref Range | Performed | Pathologist | | | | | At | Signature | + +-------+ + + + | Glucose, | 146 | 79 - 150 mg/dL | [facility] | | | P[facility] | | | [facility] | | | | | | MEDICAL | | | | | | CENTER - | | | | | | LABORATORY | | + +-------+ + + + + + | Specimen | + + | Blood | + + + + + + + | Performing | Address | City/State/Zipcode | Phone Number | | Organization | | | | + + + + + | [facility] | [address] | [place] | [phone] | | [facility] | | [address] | | | - LABORATORY | | | | + + + + + | [facility] | [address] | [place], [place] | | | [facility] | | [address] | | | - LABORATORY | | | | + + + + + XR Lumbar Spine 2 or 3 Vw (07/03/2014 3:32 PM PDT) + + | Specimen | + + | | + + + + + | Narrative | Performed At | + + + | XR LUMBAR SPINE 2 OR 3 VW 07/03/2014 3:31 PM HISTORY: postop. | MISCELANIOUS | | COMPARISON: 05/02/2014. FINDINGS: There has been interval | LAB | | placement of hardware for posterior fusion from L5 through S1 with | | | interbody hardware at L5-S1. The hardware remain intact. A left | | | posterior drain catheter is seen. There is an external brace. There is | | | improved alignment at L5 over S1 that is anatomic. Mild spondylosis | | | is observed. There is mild leftward curvature of the lumbar spine. | | | Vertebral body height are preserved with no evidence for compression | | | fractures. Bone mineralization is normal. Moderate disc narrowing is | | | at L5-S1. Facet joints are intact. There is no evidence for | | | spondylolysis. Visualized ribs and pelvic osseous structures show no | | | acute findings. Cholecystectomy clips are present. IMPRESSION - | | | Interval posterior fusion from L5 through S1 with improved alignment. | | | Dictated and Signed by: Wolf Calabrese MD Electronically signed: | | | 07/03/2014 5:18 PM | | + + + + + | Procedure Note | + + | Juan, Rad Results In - 07/03/2014 5:21 PM PDT XR LUMBAR SPINE 2 OR 3 VW 07/03/2014 | | 3:31 PMHISTORY: postop.COMPARISON: 05/02/2014.FINDINGS:There has been interval placement | | of hardware for posterior fusion from E4eosetoh S1 with interbody hardware at L5-S1. The | | hardware remain intact. A leftposterior drain catheter is seen. There is an external | | brace. There is improvedalignment at L5 over S1 that is anatomic. Mild spondylosis is | | observed. There ismild leftward curvature of the lumbar spine. Vertebral body height are | | preservedwith no evidence for compression fractures. Bone mineralization is | | normal.Moderate disc narrowing is at L5-S1. Facet joints are intact. There is noevidence | | for spondylolysis. Visualized ribs and pelvic osseous structures showno acute findings. | | Cholecystectomy clips are present.IMPRESSION -Interval posterior fusion from L5 through | | S1 with improved alignment.Dictated and Signed by: Wolf Calabrese MD Electronically | | signed: 07/03/2014 5:18 PM | |with no evidence for compression fractures. Bone mineralization is normal. | |Moderate disc narrowing is at L5-S1. Facet joints are intact. There is no | |evidence for spondylolysis. Visualized ribs and pelvic osseous structures show | |no acute findings. Cholecystectomy clips are present. | | | |IMPRESSION - | |Interval posterior fusion from L5 through S1 with improved alignment. | | | |Dictated and Signed by: Wolf Calabrese MD | | Electronically signed: 07/03/2014 5:18 PM | + + + +---------+ + + | Performing | Address | City/State/Zipcode | Phone Number | | Organization | | | | + +---------+ + + | [facility] | | | [phone] | + +---------+ + + | [facility] | | | [phone] | + +---------+ + + POC Glucose (07/03/2014 1:53 PM PDT) + +-------+ + + + | Component | Value | Ref Range | Performed | Pathologist | | | | | At | Signature | + +-------+ + + + | Glucose, | 129 | 79 - 150 mg/dL | [facility] | | [facility] | | | [facility] | | | | | | [facility] | | | | | | C[facility] - | | | | | | LABORATORY | | + +-------+ + + + + + | Specimen | + + | Blood | + + + + + + + | Performing | Address | City/State/Zipcode | Phone Number | | Organization | | | | + + + + + | [facility] | [address] | [place] | [phone] | | [facility] | | [address] | | | - LABORATORY | | | | + + + + + | [facility] | [address] | [place] | | | [facility] | | [address] | | | - LABORATORY | | | | + + + + + POC Glucose (07/03/2014 6:48 AM PDT) + +-------+ + + + | Component | Value | Ref Range | Performed | Pathologist | | | | | At | Signature | + +-------+ + + + | Glucose, | 117 | 79 - 150 mg/dL | [facility] | | | [facility] | | | [facility] | | | | | | [facility]ICAL | | | | | | CENTER - | | | | | | LABORATORY | | + +-------+ + + + + + | Specimen | + + | Blood | + + + + + + + | Performing | Address | City/State/Zipcode | Phone Number | | Organization | | | | + + + + + | [facility] | [address] | [place], [place] | [phone] | | [facility] | | [address] | | | - LABORATORY | | | | + + + + + | [facility] | [address] | [place] | | | [facility] | | [address] | | | - LABORATORY | | | | + + + + + POC Glucose (07/02/2014 8:17 PM PDT) + +---------+ + + + | Component | Value | Ref Range | Performed | Pathologist | | | | | At | Signature | + +---------+ + + + | Glucose, | 189 (H) | 79 - 150 mg/dL | [facility] | | | POC | | | [facility] | | | | | | MEDICAL | | | | | | CENTER - | | | | | | LABORATORY | | + +---------+ + + + + + | Specimen | + + | Blood | + + + + + + + | Performing | Address | City/State/Zipcode | Phone Number | | Organization | | | | + + + + + | [facility] | [address] | [place] | [phone] | | [facility] | | [address] | | | - LABORATORY | | | | + + + + + | [facility] | [address] | [place] | | | [facility] | | [address] | | | - LABORATORY | | | | + + + + + POC Glucose (07/02/2014 5:04 PM PDT) + +-------+ + + + | Component | Value | Ref Range | Performed | Pathologist | | | | | At | Signature | + +-------+ + + + | Glucose, | 124 | 79 - 150 mg/dL | [facility] | | [facility] | | | [facility] | | | | | | MEDICAL | | | | | | CENTER - | | | | | | LABORATORY | | + +-------+ + + + + + | Specimen | + + | Blood | + + + + + + + | Performing | Address | City/State/Zipcode | Phone Number | | Organization | | | | + + + + + | [facility] | [address] | [place] | [phone] | | [facility] | | [address] | | | - LABORATORY | | | | + + + + + | [facility] | [address] | [place] | | | [facility] | | [address] | | | - LABORATORY | | | | + + + + + POC Glucose (07/02/2014 10:33 AM PDT) + +-------+ + + + | Component | Value | Ref Range | Performed | Pathologist | | | | | At | Signature | + +-------+ + + + | Glucose, | 102 | 79 - 150 mg/dL | [facility] | | | [facility] | | | [facility] | | | | | | MEDICAL | | | | | | CENTER - | | | | | | LABORATORY | | + +-------+ + + + + + | Specimen | + + | Blood | + + + + + + + | Performing | Address | City/State/Zipcode | Phone Number | | Organization | | | | + + + + + | [facility] | [address] | [place], [place] | [phone] | | [facility] | | [address] | | | - LABORATORY | | | | + + + + + | [facility] | [address] | [place], [place] | | | [facility] | | [address] | | | - LABORATORY | | | | + + + + + Type and Screen (07/02/2014 10:31 AM PDT) + + + + + + | Component | Value | Ref Range | Performed | Pathologist | | | | | At | Signature | + + + + + + | ABO | A | | [facility] | | | | | [facility] | | | | | | [facility]ICAL | | | | | | CENTER - | | | | | | BLOOD BANK | | + + + + + + | Rh Type | Negative | | [facility] | | | | [facility] | | | | | | MEDICAL | | | | | | CENTER - | | | | | | BLOOD BANK | | + + + + + + | Antibody | Negative | | [facility] | | | Screen | | | [facility] | | | | | | MEDICAL | | | | | | CENTER - | | | | | | BLOOD BANK | | + + + + + + + + | Specimen | + + | Blood specimen | | (specimen) | + + + + + + + | Performing | Address | City/State/Zipcode | Phone Number | | Organization | | | | + + + + + | [facility] | [address] | [place] | | | [facility] | | [address] | | | - BLOOD BANK | | | | + + + + + documented in this encounter Visit Diagnoses + + | Diagnosis | + + | Acquired spondylolisthesis | + + | Spinal stenosis, lumbar region, without neurogenic claudication | + + | Thoracic or lumbosacral neuritis or radiculitis, unspecified | + + | Lumbago | + + documented in this encounter Administered Medications + +--------+ +--------+------+ + | Medication Order | MAR | Action | Dose | Rate | Site | | | Action | Date | | | | + +--------+ +--------+------+ + | bupivacaine 0.25%-epinephrine | Given | 07/02/20 | 15 mLs | | Surgical | | 1:200,000 0.25-1:254528 % | | 14 12:42 | | | Site | | injection PRN, Starting Tue | | PM PDT | | | | | 07/02/14 at 1242, Intra-op | | | | | | + +--------+ +--------+------+ + +---+---+ | | | +---+---+ + +-------+ +------+---+ + | midazolam (VERSED) 1 mg/mL | Given | 07/02/20 | 2 mg | | Left Arm | | injection PRN, Anxiety, Starting | | 14 12:14 | | | | | 07/02/14 at 1214, Intra-op | | PM PDT | | | | + +-------+ +------+---+ + +---+---+ | | | +---+---+ + +-------+ +---------+---+ + | thrombin (THROMBIN-JMI) 5,000 | Given | 07/02/20 | 10,000 | | Surgical | | units powder PRN, Starting Tue | | 14 12:45 | Units | | Site | | 07/02/14 at 1245, Intra-op | | PM PDT | | | | + +-------+ +---------+---+ + +---+---+ | | | +---+---+ documented in this encounter
--- OUTSIDE RECORDS SUMMARY | ~2019-09-06 | XMS | Encounter Summary ---
Demographics + + + | Address | [address] | | | [place] [address] | + + + | Home Phone | | + + + | Preferred Language | Unknown | + + + | Marital Status | | + + + | Samaritan Affiliation | 1013 | + + + | Race | Unknown | + + + | Ethnic Group | Unknown | + + + Author + + + | Author | [facility] | | | and [place] | + + + | Organization | [facility] | | | and [place] | + + + | Address | Unknown | + + + | Phone | Unavailable | + + + Support + + + + + | Name | Relationship | Address | Phone | + + + + + | Araceli Sibley | ECON | [place], [place] | | | | | [address] | | + + + + + Care Team Providers + +------+ + | Care Sheet Music Salesperson Name | Role | Phone | + +------+ + PCP | Unavailable | + +------+ + Encounter Details +--------+ + + + + | Date | Type | Department | Care Team | Description | +--------+ + + + + | 12/22/ | Hospital | [facility] | | | | 1993 - | Encounter | MED CTR GENERIC PSY | | | | | | CONV DEPT [address] | | | | 12/25/ | | [place], | | | | 1993 | | [place] [id number] | | | | | | [phone] | | | +--------+ + + + [...] [place] | | | | | | [address] | | | | | | | | +--------+---------+ + + + documented as of this encounter Visit Diagnoses Not on filedocumented in this encounter"
--- OUTSIDE RECORDS SUMMARY | ~2019-09-06 | XMS | Encounter Summary ---
Demographics + + + | Address | [address] | | | [place] [address] | + + + | Home Phone | | + + + | Preferred Language | Unknown | + + + | Marital Status | | + + + | Presybeterian Affiliation | 1013 | + + + | Race | Unknown | + + + | Ethnic Group | Unknown | + + + Author + + + | Author | [facility] | | | and [place] | + + + | Organization | [facility] | | | and [place] | + + + | Address | Unknown | + + + | Phone | Unavailable | + + + Support + + + + + | Name | Relationship | Address | Phone | + + + + + | Araceli Sibley | ECON | [place] | | | | | [address] | | + + + + + Care Team Providers + +------+ + | Care Hog Counter Name | Role | Phone | + +------+ + | Natalee Andersen NP | PCP | | + +------+ + Encounter Details +--------+ + + + + | Date | Type | Department | Care Team | Description | +--------+ + + + + | 05/14/ | Orders Only | [facility] | Frandy Teresa, | Hypertension | | 2013 | | NEUROSURGERY [address] | DO [address] | (Primary Dx); | | | | [address] | [address] [place], [place] | Hypothyroidism; | | | | [place] | [address] | GERD; BACK PAIN, | | | | [address] | | LUMBAR, WITH | | | | [phone] | | RADICULOPATHY; | | | | | | Impaired fasting | | | | | | glucose; Knee pain, | | | | | | bilateral; | | | | | | DEGENERATIVE DISC | | | | | | DISEASE, LUMBAR | | | | | | SPINE; BACK PAIN, | | | | | | LUMBAR; SOMATIC | | | | | | DYSFUNCTION, SPINE, | | | | | | SACRAL; Obstructive | | | | | | sleep apnea; | | | | | | Hyperlipidemia; | | | | | | Sinusitis; DIABETES | | | | | | MELLITUS; | | | | | | OSTEOARTHRITIS, | | | | | | KNEES, BILATERAL | +--------+ + + + + Social [...] [place] | | | | | | [address] | | | | | | | | +--------+---------+ + + + + +---------+--------+ + + | Name | Type | Priori | Associated Diagnoses | Order Schedule | | | | ty | | | + +---------+--------+ + + | CBC with | Lab | Routin | Hypertension | 1 Occurrences | | Differential | | e | Hypothyroidism GERD | starting 05/14/2014 | | | | | BACK PAIN, LUMBAR, | until 05/14/2015 | | | | | WITH RADICULOPATHY | | | | | | Impaired fasting | | | | | | glucose Knee pain, | | | | | | bilateral | | | | | | DEGENERATIVE DISC | | | | | | DISEASE, LUMBAR | | | | | | SPINE BACK PAIN, | | | | | | LUMBAR SOMATIC | | | | | | DYSFUNCTION, SPINE, | | | | | | SACRAL Obstructive | | | | | | sleep apnea | | | | | | Hyperlipidemia | | | | | | Sinusitis DIABETES | | | | | | MELLITUS | | | | | | OSTEOARTHRITIS, | | | | | | KNEES, BILATERAL | | + +---------+--------+ + + | Basic Metabolic | Lab | Routin | Hypertension | 1 Occurrences | | Panel | | e | Hypothyroidism GERD | starting 05/14/2014 | | | | | BACK PAIN, LUMBAR, | until 05/14/2015 | | | | | WITH RADICULOPATHY | | | | | | Impaired fasting | | | | | | glucose Knee pain, | | | | | | bilateral | | | | | | DEGENERATIVE DISC | | | | | | DISEASE, LUMBAR | | | | | | SPINE BACK PAIN, | | | | | | LUMBAR SOMATIC | | | | | | DYSFUNCTION, SPINE, | | | | | | SACRAL Obstructive | | | | | | sleep apnea | | | | | | Hyperlipidemia | | | | | | Sinusitis DIABETES | | | | | | MELLITUS | | | | | | OSTEOARTHRITIS, | | | | | | KNEES, BILATERAL | | + +---------+--------+ + + | ECG 12 lead | ECG | Routin | Hypertension | 1 Occurrences | | | | e | Hypothyroidism GERD | starting 05/14/2014 | | | | | BACK PAIN, LUMBAR, | until 05/14/2015 | | | | | WITH RADICULOPATHY | | | | | | Impaired fasting | | | | | | glucose Knee pain, | | | | | | bilateral | | | | | | DEGENERATIVE DISC | | | | | | DISEASE, LUMBAR | | | | | | SPINE BACK PAIN, | | | | | | LUMBAR SOMATIC | | | | | | DYSFUNCTION, SPINE, | | | | | | SACRAL Obstructive | | | | | | sleep apnea | | | | | | Hyperlipidemia | | | | | | Sinusitis DIABETES | | | | | | MELLITUS | | | | | | OSTEOARTHRITIS, | | | | | | KNEES, BILATERAL | | + +---------+--------+ + + | XR Chest PA and | Imaging | Routin | Hypertension | Expected: | | Lateral | | e | Hypothyroidism GERD | 05/14/2014, Expires: | | | | | BACK PAIN, LUMBAR, | 05/14/2015 | | | | | WITH RADICULOPATHY | | | | | | Impaired fasting | | | | | | glucose Knee pain, | | | | | | bilateral | | | | | | DEGENERATIVE DISC | | | | | | DISEASE, LUMBAR | | | | | | SPINE BACK PAIN, | | | | | | LUMBAR SOMATIC | | | | | | DYSFUNCTION, SPINE, | | | | | | SACRAL Obstructive | | | | | | sleep apnea | | | | | | Hyperlipidemia | | | | | | Sinusitis DIABETES | | | | | | MELLITUS | | | | | | OSTEOARTHRITIS, | | | | | | KNEES, BILATERAL | | + +---------+--------+ + + documented as of this encounter Visit Diagnoses + + | Diagnosis | + + | Hypertension - Primary Unspecified essential hypertension | + + | Hypothyroidism Unspecified hypothyroidism | + + | GERD Esophageal reflux | + + | BACK PAIN, LUMBAR, WITH RADICULOPATHY Thoracic or lumbosacral neuritis or | | radiculitis, unspecified | + + | Impaired fasting glucose | + + | Knee pain, bilateral Pain in joint, lower leg | + + | DEGENERATIVE DISC DISEASE, LUMBAR SPINE Degeneration of lumbar or lumbosacral | | intervertebral disc | + + | BACK PAIN, LUMBAR Lumbago | + + | SOMATIC DYSFUNCTION, SPINE, SACRAL Nonallopathic lesion of sacral region, not | | elsewhere classified | + + | Obstructive sleep apnea Obstructive sleep apnea (adult) (pediatric) | + + | Hyperlipidemia Other and unspecified hyperlipidemia | + + | Sinusitis Unspecified sinusitis (chronic) | + + | DIABETES MELLITUS Type II or unspecified type diabetes mellitus without mention of | | complication, not stated as uncontrolled | + + | OSTEOARTHRITIS, KNEES, BILATERAL Osteoarthrosis, unspecified whether generalized or | | localized, lower leg | + + documented in this encounter"
--- OUTSIDE RECORDS SUMMARY | ~2019-09-06 | XMS | Encounter Summary ---
Demographics + + + | Address | [address] | | | [place] [address] | + + + | Home Phone [...] [place] | | | | | [address] | | + + + + + Care Team Providers + +------+ + | Care Electromedical Equipment Repairer Name | Role | Phone | [...] | | | | Lumbar | Frandy Simons, DO | | | | | | radiculopath | [address] | | | | | | [address] Knee | [address] | | | | | | pain, | [place], [place] | | | | | | bilateral | [address] | | | | | | Degenerative | Phone: | | | | | | disc | [phone] | | | | | | disease, | Fax: | | | | | | lumbar | [phone] | | | | | | Spinal [...] [address] | [address] [place], [place] | (Primary Dx); Knee | | | | [place] | [address] | pain, bilateral; | | | | [address] | | DEGENERATIVE DISC | | | | [phone] | | DISEASE, LUMBAR | | | [...] | | | | | [address] | | | | | | [address] | | | | | | | | +--------+---------+ + + + + + +--------+ + [...]
--- OUTSIDE RECORDS SUMMARY | ~2019-09-06 | XMS | Encounter Summary ---
Demographics + + + | Address | [address] | | | [place] [address] | + + + | Home Phone | | + + + | Preferred Language | Unknown | + + + | Marital Status | | + + + | Islam Affiliation | 1013 | + + + [...] [place], [place] | | | | | [address] | | + + + + + Care Team Providers + +------+ + | Care Supervisor Sanding Name | Role | Phone | + +------+ + PCP | Unavailable | + +------+ + Encounter Details +--------+ + + + + | Date | Type | Department | Care Team | Description | +--------+ + + + + | 05/23/ | Hospital | [facility] | | | | 1991 | Encounter | MED CTR XRAY [address] | | | | | | [address] | | | | | | [place] [address] | | | | | | [phone] | | | +--------+ + + + [...] | | | | | [address] [place] | | | | | | [address] | | | | | | | | +--------+---------+ + + + documented as of this encounter Visit Diagnoses Not on filedocumented in this encounter"
--- OUTSIDE RECORDS SUMMARY | ~2019-09-06 | XMS | Encounter Summary ---
Demographics + + + | Address | [address] | | | [place] [address] | + + + | Home Phone | | + + + | Preferred Language | Unknown | + + + | Marital Status | | + + + | Sikh Affiliation | 1013 | + + + | Race | Unknown | + + + | Ethnic Group | Unknown | + + + Author + + + | Author | [facility] | | | and [place] | + + + | Organization | [facility] | | | and [place] | + + + | Address | Unknown | + + + | Phone | Unavailable | + + + Support + + + + + | Name | Relationship | Address | Phone | + + + + + | Araceli Sibley | ECON | [place] | | | | | [address] | | + + + + + Care Team Providers + +------+ + | Care Extra Hand Name | Role | Phone | + [...] | | | | | | | [address] | | | | | | | Phone: | | | | | | | [phone] | | | | | | | Fax: | | | | | | | [phone] | | +--------+ + + + + + Reason for Visit + + + | Reason | Comments | + + + | Follow-up | 3 mo po | + + + Encounter Details +--------+---------+ + + + | Date | Type | Department | Care Team | Description | +--------+---------+ + + + | 09/27/ | Office | [facility] | Frandy Teresa, | Lumbar spondylosis | | 2013 | Visit | [address]UR[address] | DO [address] | (Primary Dx); S/P | | | | [address] | [address] [place], [place] | lumbar fusion | | | | [place], [place] | [address] | | | | | [address] | | | | | | [phone] | | | +--------+---------+ + + + [...] m the original. Frandy Teresa DO [address] [place] [address] FAX: NEUROSURGERY FOLLOW-UP CHIEF COMPLAINT: Chief Complaint [...] Laterality: N/A; Surgeon: Frandy castellanos DO; Location: [facility] MAIN OR CURRENT MEDICATIONS: Current Outpatient Prescriptions [...] Take 15 mg by mouth nightl y. Gilchrist-3 Fatty Acids (FISH OIL CONCENTRATE) 1000 MG [...] | | | | | [address] [place], [place] | | | | | | [address] | | | | | | | [...]
--- OUTSIDE RECORDS SUMMARY | ~2019-09-06 | XMS | Encounter Summary ---
Demographics + + + | Address | [address] | | | [place] [address] | + + + | Home Phone [...] [place] | | | | | [address] | | + + + + + Care Team Providers + +------+ + | Care Foreign Student Adviser Teacher Name | Role | Phone | + +------+ + | Adriano Patrick MD | PCP | | + +------+ + Reason for Visit +--------+ + | Reason | Comments | +--------+ + | Other | Patient called to cancel her appointment | +--------+ + Encounter Details +--------+ + + + + | Date | Type | Department | Care Team | Description | +--------+ + + + + | 06/28/ | Telephone | [facility] | Ashley Chávez | Talia (Patient | | 2019 | | CARDIOLOGY GENESIS Abad, Wind Energy Project Manager | called to cancel her | | | | [address] | | appointment) | | | | [place] | | | | | | [address] | | | | | | [phone] | | | +--------+ + + + [...] | 2019 | Visit | | [address] | | | | | | [place] | | | | | | [address] | | | | | | | | +--------+---------+ + + + documented as of this encounter Visit Diagnoses Not on filedocumented in this encounter"
--- OUTSIDE RECORDS SUMMARY | ~2019-09-06 | XMS | Encounter Summary ---
Demographics + + + | Address | [address] | | | [place] [address] | + + + | Home Phone | | + + + | Preferred Language | Unknown | + + + | Marital Status | Single | + + + | Advent Affiliation | Unknown | + + + | Race | White | + + + | Ethnic Group | Not or | + + + Author + + + | Organization | Unknown | + + + | Address | Unknown | + + + | Phone | Unavailable | + + + Support + + + + + | Name | Relationship | Address | Phone | + + + + + | Kelsy Bautista | ECON | [address] | | | | | [place] | | | | | [address] | | + + + + + Care Team Providers + +------+ + | Care Pool Lifeguard Name | Role | Phone | + +------+ + PCP | Unavailable | + +------+ + Encounter Details +--------+ + + + + | Date | Type | Department | Care Team | Description | +--------+ + + + + | // | Procedure - | | Record, Operation | Operative Report | | 1998 | | | | | | | Transcribed | | | | +--------+ + + [...] | + +--------+ + + + | OPERATION RECORD | | 10/28/1998 | | Results for this | | | | | | procedure are in the | | | | | | results section. 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 The | | firstprobe was placed through the lower canaliculus until it was visualized inthe | | dacryocystorhinostomy ostium, grasped with a hemostat and pulled outthrough the nose. | | The other probe was placed through the upper canaliculusin the same manner. The | | probes were removed and the silicone was tied andallow to retract. Some bleeding | | occurred in the nasal mucosa. Cautery wasapplied to the nasal septum and near the | | dacryocystorhinostomy ostium withsilver nitrate.Following this, some Vaseline gauze was | | packed into the nostril to controlthe bleeding. The bleeding was under control. | | The patient was thenallowed to return back to the Postanesthesia Care Unit in good | | condition. Lazaro Tello M.D.MEKHI/Renetta: 10/28/1998T: | | 10/28/1998 10:33 Acc: | | | |COMPLICATIONS: None. | | | |PROCEDURE: The patient was brought to the | |Operating Room and prepped and draped in the usual manner and anesthesia | |was as listed above. | | | |After spraying the nose, the Quickert probes were utilized. The first | |probe was placed through the lower canaliculus until it was visualized in | |the dacryocystorhinostomy ostium, grasped with a hemostat and pulled out | |through the nose. The other probe was placed through the upper canaliculus | |in the same manner. The probes were removed and the silicone was tied and | |allow to retract. Some bleeding occurred in the nasal mucosa. Cautery was | |applied to the nasal septum and near the dacryocystorhinostomy ostium with | |silver nitrate. | | | |Following this, some Vaseline gauze was packed into the nostril to control | |the bleeding. The bleeding was under control. The patient was then | |allowed to return back to the Postanesthesia Care Unit in good condition. | | | | | | | | Lazaro Tello M.D. | | | |MEKHI/rosalino | | | | A | | | |cc: | + + documented in this encounter Visit Diagnoses Not on filedocumented in this encounter"
--- OUTSIDE RECORDS SUMMARY | ~2019-09-06 | XMS | Encounter Summary ---
Demographics + + + | Address | [address] | | | [place] [address] | + + + | Home Phone [...] [place], [place] | | | | | [address] | | + + + + + Care Team Providers + +------+ + | Care Paper Cutter Operator Name | Role | Phone | + +------+ + PCP | Unavailable | + +------+ + Encounter Details +--------+ + + + + | Date | Type | Department | Care Team | Description | +--------+ + + + + | 03/13/ | Hospital | [facility] | | | | 1996 - | Encounter | MED CTR GENERIC OP | | | | | | CONV DEPT [address] | | | | 03/21/ | | [place], | | | | 1996 | | [place] [address] | | | | | | [phone] | | | +--------+ + + + [...] [place] | | | | | | [address] | | | | | | | | +--------+---------+ + + + documented as of this encounter Visit Diagnoses Not on filedocumented in this encounter"
--- OUTSIDE RECORDS SUMMARY | ~2019-09-06 | XMS | Encounter Summary ---
Demographics + + + | Address | [address] | | | [place] [address] | + + + | Home Phone | | + + + | Preferred Language | Unknown | + + + | Marital Status | | + + + | Jewish Affiliation | 1013 | + + + [...] [place] | | | | | [address] | | + + + + + Care Team Providers + +------+ + | Care Brazer Resistance Name | Role | Phone | + +------+ + | Natalee Andersen NP | PCP | | + +------+ + Encounter Details +--------+ + + + + | Date | Type | Department | Care Team | Description | +--------+ + + + + | 04/24/ | Abstract | [facility] [place] | Frandy Teresa, | Neuropathy (Primary | | 2013 | | NEUROSURGERY [address] | DO [address] | Dx); Gastric reflux; | | | | [address] | [address] [place], [place] | Anxiety; Anemia; | | | | [place] | [address] | Irregular heartbeat; | | | | [address] | | Depression; | | | | [phone] | | Migraine; | | | | | | Schizophrenia (HCC) | | | | | |Schizophrenia (HCC) | +--------+ + + + + Social [...] | | | | | | [place] [facility] | | | | | | [address] | | | | | | | | +--------+---------+ + + + documented as of this encounter Visit Diagnoses + + | Diagnosis | + + | 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
--- OUTSIDE RECORDS SUMMARY | ~2019-09-06 | XMS | Encounter Summary ---
Demographics + + + | Address | [address] | | | [place] [address] | + + + | Home Phone | | + + + | Preferred Language | Unknown | + + + | Marital Status | | + + + | Sabianist Affiliation | 1013 | + + + | Race | Unknown | + + + | Ethnic Group | Unknown | + + + Author + + + | Author | [facility] | | | and [place] | + + + | Organization | [facility] | | | and [place] | + + + | Address | Unknown | + + + | Phone | Unavailable | + + + Support + + + + + | Name | Relationship | Address | Phone | + + + + + | Araceli Sibley | ECON | [place] | | | | | [address] | | + + + + + Care Team Providers + +------+ + | Care Senior Energy Market Coordinator Name | Role | Phone | + +------+ + | Basim Bolanos MD | PCP | | + +------+ + Encounter Details +--------+ + + + + | Date | Type | Department | Care Team | Description | +--------+ + + + + | 02/22/ | Abstract | [facility] [place] | [facility], | | | 2012 | | GASTROENTEROLOGY | [place] | | | | | [address] [place] | [place], [address] | | | | | [address] [place], [place] | [place], [place] | | | | | [address] | [address] | | | | | [phone] | | | +--------+ + + + [...] [place] | | | | | | [address] | | | | | | | | +--------+---------+ + + + documented as of this encounter Visit Diagnoses Not on filedocumented in this encounter"
--- OUTSIDE RECORDS SUMMARY | ~2019-09-06 | XMS | Encounter Summary ---
Demographics + + + | Address | [address] | | | [place] [address] | + + + | Home Phone | | + + + | Preferred Language | Unknown | + + + | Marital Status | Single | + + + | Confucianist Affiliation | Unknown | + + + | Race | White | + + + | Ethnic Group | Not or | + + + Author + + + | Author | [facility] | + + + | Organization | [facility] | + + + | Address | Unknown | + + + | Phone | Unavailable | + + + Support + + + + + | Name | Relationship | Address | Phone | + + + + + | Kelsy Bautista | ECON | [address] | | | | | [place] | | | | | [address] | | + + + + + Care Team Providers + +------+ + | Care Manager Oracle Database Name | Role | Phone | + [...] | | | | | | [place] | | | | | | [place] [address] | | | | | | [phone] | | | +--------+ + + + [...] | | + +---------+ + + | [facility] DEPARTMENT OF | | | | | RADIOLOGY | | | | + +---------+ + + documented in this encounter Visit Diagnoses Not on filedocumented in this encounter"
--- OUTSIDE RECORDS SUMMARY | ~2019-09-06 | XMS | Encounter Summary ---
Demographics + + + | Address | [address] | | | [place] [address] | + + + | Home Phone | | + + + | Preferred Language | Unknown | + + + | Marital Status | | + + + | Amish Affiliation | 1013 | + + + | Race | Unknown | + + + | Ethnic Group | Unknown | + + + Author + + + | Author | [facility] | | | and [place] | + + + | Organization | [facility] | | | and [place] | + + + | Address | Unknown | + + + | Phone | Unavailable | + + + Support + + + + + | Name | Relationship | Address | Phone | + + + + + | Araceli Sibley | ECON | [place], [place] | | | | | [address] | | + + + + + Care Team Providers + +------+ + | Care Configuration Management Administrator Name | Role | Phone | + +------+ + PCP | Unavailable | + +------+ + Encounter Details +--------+ + + + + | Date | Type | Department | Care Team | Description | +--------+ + + + + | 12/27/ | Hospital | [facility] | | | | 1997 - | Encounter | MED CTR GENERIC PSY | | | | | | CONV DEPT [address] | | | | 01/01/ | | [address], | | | | 1997 | | [place] [address] | | | | | | [phone] | | | +--------+ + + + [...] [place] | | | | | | [address] | | | | | | | | +--------+---------+ + + + documented as of this encounter Visit Diagnoses Not on filedocumented in this encounter"
--- OUTSIDE RECORDS SUMMARY | ~2019-09-06 | XMS | Encounter Summary ---
Demographics + + + | Address | [address] | | | [place] [address] | + + + | Home Phone [...] [place], [place] | | | | | [address] | | + + + + + Care Team Providers + +------+ + | Care Manager Personal Name | Role | Phone | + +------+ + PCP | Unavailable | + +------+ + Encounter Details +--------+ + + + + | Date | Type | Department | Care Team | Description | +--------+ + + + + | 05/25/ | Hospital | [facility] | | | | 1991 | Encounter | MED CTR LABORATORY | | | | | | [address] | | | | | | [place] | | | | | | [address] | | | | | | [phone] | | | +--------+ + + + [...] | | | | | [place] | | | | | | [address] | | | | | | | | +--------+---------+ + + + documented as of this encounter Visit Diagnoses Not on filedocumented in this encounter"
--- OUTSIDE RECORDS SUMMARY | ~2019-09-06 | XMS | Encounter Summary ---
Demographics + + + | Address | [address] | | | [place] [address] | + + + | Home Phone [...] [place] | | | | | [address] | | + + + + + Care Team Providers + +------+ + | Care Programmable Logic Controller Assembler Name | Role | Phone | + +------+ + | Natalee Andersen NP | PCP | | + +------+ + Reason for Visit + + + | Reason | Comments | + + + | Medication Refill | | | Assistance | | + + + Encounter Details +--------+ + + + + | Date | Type | Department | Care Team | Description | +--------+ + + + + | 11/25/ | Telephone | [facility] | Frandy Teresa, | Medication Refill | | 2015 | | NE[address]UR[address] | DO [address] | Assistance | | | | [address] | [address] [place], [place] | | | | | [place], [place] | [address] | | | | | [address] | | | | | | [phone] | | | +--------+ + + + [...] | | | | | [place] | | | | | | [address] | | | | | | | | +--------+---------+ + + + documented as of this encounter Visit Diagnoses Not on filedocumented in this encounter"
--- OUTSIDE RECORDS SUMMARY | ~2019-09-06 | XMS | Clinical Summary ---
Demographics + + + | Address | [address] | | | [place] [address] | + + + | Home Phone [...] [place] | | | | | [address] | | + + + + + Care Team Providers + +------+ + | Care Tie Tamper Name | Role | Phone | + [...] | | Activ | | (VITAMIN D-3) [address] | mouth Once a week. | | [...] + + +---------+------+------+-------+ | OLANZapine | Take 10 mg by mouth | | 0 | | | Activ | | (ZYPREXA) 10 MG | nightly. [...] | | | | | | | ([facility]) | | | | | | | + + + +---------+------+------+-------+ +---+ + | | Additional | | | informationPatient | | | taking differently: | | | 1,000 mg Oral 2 | | | TIMES DAILY, | | | Reported on | | | 07/19/2019 10:39 AM | +---+ + + + +---+---+---+---+-------+ | B Complex Vitamins | Take by mouth. | | 0 | | | Activ | | (VITAMIN B COMPLEX | | | | | | e | | PO) | | | | | | | + + +---+---+---+---+-------+ | acetaminophen | Take 325 mg by mouth | | 0 | | | Activ | | (TYLENOL) 325 mg | every 6 (six) hours | | | | | e | | tablet | as needed for Pain. | | | | | | + + +---+---+---+---+-------+ | albuterol 90 | Inhale 2 puffs into | | 0 | | | Activ | | mcg/puff inhaler | the lungs every 4 | | | | | e | | | (four) hours as | | | | | | | | needed for Wheezing. | | | | | | + + +---+---+---+---+-------+ | amitriptyline | Take 50 mg by mouth | | 0 | | | Activ | | (ELAVIL) 50 mg | nightly. | | | | | e | | tablet | | | | | | | + + +---+---+---+---+-------+ | Blood Glucose | by Does not apply | | 0 | | | Activ | | Monitoring Suppl | route. | | | | | e | | (Ikro VERIO FLEX | | | | | | | | SYSTEM) w/Device | | | | | | | | KIT | | | | | | | + + +---+---+---+---+-------+ | | Inhale 2 puffs into | | 0 | | | Activ | | budesonide-formotero | the lungs 2 (two) | | | | | e | | l (SYMBICORT) | times daily. | | | | | | | 160-4.5 mcg/puff | | | | | | | | inhaler | | | | | | | + + +---+---+---+---+-------+ | clonazePAM | Take 0.5 mg by mouth | | 0 | | | Activ | | (KLONOPIN) 0.5 mg | 2 (two) times daily | | | | | e | | tablet | as needed for | | | | | | | | Anxiety. | | | | | | + + +---+---+---+---+-------+ | ibuprofen | Take 800 mg by mouth | | 0 | | | Activ | | (ADVIL,MOTRIN) 800 | every 8 hours as | | | | | e | | MG tablet | needed. | | | | | | + + +---+---+---+---+-------+ | atenolol | Take 50 mg by mouth | | 0 | | | Activ | | (TENORMIN) 50 mg | daily. | | | | | e | | tablet | | | | | | | + + +---+---+---+---+-------+ | calcium carbonate | Take 1,000 mg by | | 0 | | | Activ | | antacid (TUMS ULTRA | mouth 3 (three) | | | | | e | | 1000) 1000 MG CHEW | times daily. | | | | | | + + +---+---+---+---+-------+ | Multiple | Take 1 tablet by | | 0 | | | Activ | | Vitamins-Minerals | mouth Daily. | | | | | e | | (ADULT MULTIVITAMIN | chewable | | | | | | | WITH MINERALS/IRON) | | | | | | | | TABS | | | | | | | + + +---+---+---+---+-------+ | pantoprazole | Take 20 mg by mouth | | 0 | | | Activ | | (PROTONIX) 20 mg | 2 times daily | | | | | e | | tablet | (before meals). | | | | | | + + +---+---+---+---+-------+ | glipiZIDE | Take 5 mg by mouth | | 0 | | | Activ | | (GLUCOTROL) 5 mg | every morning | | | | | e | | tablet | (before breakfast). | | | | | | + + +---+---+---+---+-------+ | potassium chloride | Take 10 mEq by mouth | | 0 | | | Activ | | (KLOR-CON) 10 MEQ | 2 times daily. | | | | | e | | ER tablet | | | | | | | + + +---+---+---+---+-------+ Active Problems + + + | Problem [...] | | 2018 | | | D, [place] | to take monitor | | | | | | off. ) | +--------+ + + + + | 08/28/ | Telephone | Cardiology | Ashley Chávez | Other (Patient has | | 2018 | | | D, [place] | questions about | | | | | | monitor. ) | +--------+ + + + + | 08/24/ | Documentati | Cardiology | Katharine Moncada | Other (urgent | | 2019 | [...] Ashley Chávez | Other (Called to | | 2018 | | | [place], [place] | tell patient what Dr | | | | | | Nicholas [...] | | 2018 | | | D, [place] | anxious about urgent | | | [...] | Ashley Chávez | Other (Questions | 2018 | | | D, [place] | about coverage. ) | +--------+ + + + + | 07/30/ | Telephone | Cardiology | Ashley Chávez | Other (Patient | | 2018 | | | D, [place] | concerns ) | +--------+ + + + + | 07/24/ | Telephone | Cardiology | Ashley Chávez | Other (Patient is | | 2018 | | | D, [place] | worried about paying | | | | | | for monitor. ) | +--------+ + + + + | 07/19/ | Office | Cardiology | Desiree Peterson DO | Syncope, unspecified | 2018 | Visit | | | syncope type | | | | | | (Primary Dx); | | | | | | Essential | | | | | | hypertension; | | | | | | Irregular heartbeat | +--------+ + + + + | 06/28/ | Telephone | Cardiology | Ashley Chávez | Other (Patient | | 2019 | | | [place], [place] | called to cancel her | | | | | | appointment) | +--------+ + + + + | 06/27/ | Office | Cardiology | Yecenia Coronado, | Hypertension, | | 2019 | Visit | | MD | unspecified type | | | | | | (Primary Dx); | | | | | | Bradycardia | +--------+ + + + + from [...] + | Blood Pressure | 116/70 | 07/19/2019 10:40 AM | | | | | PDT | | + + + + + | Pulse | 85 | 07/19/2019 10:40 AM | | | | | PDT [...] + + + | Oxygen Saturation | 93% | 07/19/2019 10:40 AM | | | | | PDT | | + + + + + | Inhaled Oxygen | - | - | | | Concentration | | | | + + + + + | Weight | 136.5 kg (301 lb) | 07/19/2019 10:40 AM | | | | | PDT | | + + + + + | Height | 170.2 cm (5' 7") | 07/19/2019 10:40 AM | | | | | PDT | | + + + + + | Body Mass Index | 47.14 | 07/19/2019 10:40 AM | | | | | PDT [...] [place] | | | | | | [address] | | | | | | | [...] + + + | Vaccine: Influenza | 09/01/201 | | | | (#1) | 9 [...] | [employer] - | | 04/02/ | [id number] | | 5ccImplanted: Qty: 1 on | | Spine | MEDT | | 2019 | | | 07/02/2014 by Frandy Teresa | | Lumbar | | | | /[id number] | | [facility] | | | | | | 6-020 | | [facility] | | | | | | / | + +------+--------+ +--------+--------+--------+ | Graft Infuse Bone Kit Xxs - | | N/A: | SOFAMOR | | 01/21/ | [id number] | | [id number]: Qty: 1 on | | Spine | DANEK - DIV | | 2014 | 0 / | | 07/02/2014 by Frandy Teresa | | Lumbar | [employer] | | | /[id number] | | A, DO at [facility] | | | - SFDK | | | 06AAH | | [facility] | | | | | | | + +------+--------+ +--------+--------+--------+ | Imp Spn Spcr Cpstn 8x26mm - | | N/A: | SOFAMOR | | 01/11/ | [id number] | | [id number]: Qty: 1 on | | Spine | DANEK - DIV | | 2021 | 6 / | | 07/02/2014 by Frandy Teresa | | Lumbar | [employer] | | | /[id number] | | A, DO at [facility] | | | - SFDK | | | 928 | | [facility] | | | | | | | + +------+--------+ +--------+--------+--------+ | Set Scrw Ns G5 Brk Off Ti | | N/A: | SOFAMOR | | | [id number] | | 4.75 - [id number]: | | Spine | DANEK - DIV | | | 0 / / | | Qty: 4 on 07/02/2014 by | | Lumbar | [employer] | | | | | Frandy Teresa, DO at [facility] | | | - [facility]FDK | | | | | [facility] | | | | | | | | [facility] | | | | | | | + +------+--------+ +--------+--------+--------+ | RodImplanted: Qty: 1 on | | N/A: | | | | [id number] | | 07/02/2014 by Frandy Teresa | | Spine | | | | 540 / | | A DO at [facility] | | Lumbar | | | | / | | [facility] | | | | | | | + +------+--------+ +--------+--------+--------+ | RodImplanted: Qty: 1 on | | N/A: | MEDTROL - | | | [id number] | | 07/02/2014 by Frandy Teresa | | Spine | MDTR | | | 545 / | | A DO at [facility] | | Lumbar | | | | / | | [facility] | | | | | | | + +------+--------+ +--------+--------+--------+ | Screw 7.5x50mm Sextant - | | N/A: | [employer] - | | | [id number] | | [id number]: Qty: 1 on | | Spine | MEDT | | | [id number] | | 07/02/2014 by Frandy Teresa | | Lumbar | | | | / / | | DO Ronak at [facility] | | | | | | | | [facility] | | | | | | | + +------+--------+ +--------+--------+--------+ | Cannulated ScrewImplanted: | | N/A: | MEDTROL - | | | [id number] | | Qty: 1 on 07/02/2014 by | | Spine | MDTR | | | [id number] | | Frandy Teresa DO at [facility] | | Lumbar | | | | / / | | [facility] | | | | | | | | CENTER | | | | | | | + +------+--------+ +--------+--------+--------+ | Cannulated ScrewImplanted: | | N/A: | [employer]IC - | | | [id number] | | Qty: 1 on 07/02/2014 by | | Spine | MEDT | | | [id number] | | Frandy Teresa DO at [facility] | | Lumbar | | | | / / | | [facility] | | | | | | | | CENTER | | | | | | | + +------+--------+ +--------+--------+--------+ Procedures + +--------+ + + + | Procedure Name | Priori | Date/Time | Associated Diagnosis | Comments | | | ty | | | | + +--------+ + + + | LABS - EXTERNAL SCAN | | 07/05/2019 | | Results for this | | | | 12:00 AM | | procedure are in the | | | | PDT | | results section. | + +--------+ + + + | LABS - EXTERNAL SCAN | | 07/01/2019 | | Results for this | | | | 12:00 AM | | procedure are in the | | | | PDT | | results section. | + +--------+ + + + from Last 3 Months Results LABS - EXTERNAL SCAN (07/05/2019 12:00 AM PDT)Only the most recent of 2 results within the time period is included. + + + | Narrative | Performed At | + + + | Ordered by an | | | unspecified provider. | | + + + from Last 3 Months Insurance [...] +--------+ +---------+--------+ | MEDICARE | MEDICA | [id number] | 02/22/20 | [phone] | | Medica | | | RE | | 09-Pre | 5 | | re | | | PART A | | sent | | | | | | AND B | | | | | | + +--------+ +--------+ +---------+--------+ | MEDICARE | MEDICA | [id number] | 02/22/20 | [phone] | | Medica [...] Self | [birth year] | [address] | | | al/Fam | | 5 | [phone] | [address] [place], [place] | | | [place] | | | 8 (Home) | [address] | + +--------+ +--------+ + + | Cindy Arndt | Person | Self | [birth year] | [address] | | | al/Fam | | 1955 | [phone] | [address] [place], [place] | | | [place] | | | 8 (Home) | [address] | + +--------+ +--------+ + + Advance Directives + + + + + | Type | Date Recorded | Patient | Explanation | | | | Receiving Supervisor | | + + + + + | Power of | | | | | Leather Skinner | | | | + + + [...]
--- OUTSIDE RECORDS SUMMARY | ~2019-09-06 | XMS | Encounter Summary ---
Demographics + + + | Address | [address] | | | [place] [address] | + + + | Home Phone [...] [place], [place] | | | | | [address] | | + + + + + Care Team Providers + +------+ + | Care Rental Manager Name | Role | Phone | + +------+ + PCP | Unavailable | + +------+ + Encounter Details +--------+ + + + + | Date | Type | Department | Care Team | Description | +--------+ + + + + | 03/13/ | Hospital | [facility] | | | | 1996 - | Encounter | MED CTR GENERIC OP | | | | | | CONV DEPT [address] | | | | 03/21/ | | [address] [place], | | | | 1996 | | [place] [address] | | | | | | [phone] | | | +--------+ + + + [...] [place] | | | | | | [address] | | | | | | | | +--------+---------+ + + + documented as of this encounter Visit Diagnoses Not on filedocumented in this encounter"
--- OUTSIDE RECORDS SUMMARY | ~2019-09-06 | XMS | Encounter Summary ---
Demographics + + + | Address | [address] | | | [place] [address] | + + + | Home Phone [...] [place] | | | | | [address] | | + + + + + Care Team Providers + +------+ + | Care Full Stack Developer Name | Role | Phone | + +------+ + | Natalee Andersen NP | PCP | | + +------+ + Reason for Visit +--------+ + | Reason | Comments | +--------+ + | Other | Plavix | +--------+ + Encounter Details +--------+ + + + + | Date | Type | Department | Care Team | Description | +--------+ + + + + | 03/04/ | Telephone | [facility] | Baudilio Newman | Other (Plavix) | | 2014 | | NEUROLOGY LAURIE | MD Pollo Need updated | | | | | [address], | address | | | | | [address] [place] | | | | | | [place] [address] | | | | | | [phone] | | | +--------+ + + + [...] [place] | | | | | | [address] | | | | | | | | +--------+---------+ + + + documented as of this encounter Visit Diagnoses Not on filedocumented in this encounter"
--- OUTSIDE RECORDS SUMMARY | ~2019-09-06 | XMS | Encounter Summary ---
Demographics + + + | Address | [address] | | | [place] [address] | + + + | Home Phone [...] [place] | | | | | [address] | | + + + + + Care Team Providers + +------+ + | Care Flotation Tender Name | Role | Phone | [...] [address] | [address] [place], [place] | (Primary Dx) | | | | [place], [place] | [address] | | | | | [address] | | | | | | [phone] | | | +--------+ + + + [...] [place] | | | | | | [address] | | | | | | | [...] + | MISCELLANEOUS LAB | | | [phone] | + +---------+ + + | MISCELANIOUS LAB | | | [phone] | + +---------+ + + documented in this encounter Visit Diagnoses + + | Diagnosis | + + | Status post lumbar spinal fusion - Primary Arthrodesis status | + + documented in this encounter"
--- OUTSIDE RECORDS SUMMARY | ~2019-09-06 | XMS | Encounter Summary ---
Demographics + + + | Address | [address] | | | [place] [address] | + + + | Home Phone | | + + + | Preferred Language | Unknown | + + + | Marital Status | | + + + | Yazidi Affiliation | 1013 | + + + | Race | Unknown | + + + | Ethnic Group | Unknown | + + + Author + + + | Author | [facility] | | | and [place] | + + + | Organization | [facility] [...] [place] | | | | | [address] | | + + + + + Care Team Providers + +------+ + | Care Corporate Events Director Name | Role | Phone | + +------+ + | Natalee Andersen NP | PCP | | + +------+ + Reason for Visit +--------+ + | Reason | Comments | +--------+ + | Pain | | +--------+ + Encounter Details +--------+ + + + + | Date | Type | Department | Care Team | Description | +--------+ + + + + | 07/06/ | Telephone | [facility] [place] | Lincoln Cheema MD | Pain | | 2013 | | NEUROSURGERY [address] | [address] | | | | | [address] | [place] [address] | | | | | [place], [place] | [phone] | | | | | [address] | | | | | | [phone] | | | +--------+ + + + [...] | | | | | | [facility] | | | | | | [address] | | | | | | | | +--------+---------+ + + + documented as of this encounter Visit Diagnoses Not on filedocumented in this encounter"
--- OUTSIDE RECORDS SUMMARY | ~2019-09-06 | XMS | Encounter Summary ---
Demographics + + + | Address | [address] | | | [place] [address] | + + + | Home Phone [...] [place] | | | | | [address] | | + + + + + Care Team Providers + +------+ + | Care Laundry Machine Tender Name | Role | Phone | [...] + + | 07/10/ | Telephone | [facility] | Frandy Teresa, | Imaging Only (1 year | | 2014 | | NEUROSURGERY [address] | DO [address] | x-ray ) | | | | [address] | [address] [place], [place] | | | | | [place], [place] | [id number] | | | | | [address] | | | | | | [phone] | | | +--------+ + + + [...] [place] | | | | | | [address] | | | | | | | | +--------+---------+ + + + documented as of this encounter Visit Diagnoses Not on filedocumented in this encounter"
--- OUTSIDE RECORDS SUMMARY | ~2019-09-06 | XMS | Encounter Summary ---
Demographics + + + | Address | [address] | | | [place] [address] | + + + | Home Phone [...] [place] | | | | | [address] | | + + + + + Care Team Providers + +------+ + | Care Activity Leader Name | Role | Phone | + +------+ + | Natalee Andersen NP | PCP | | + +------+ + Encounter Details +--------+---------+ + + + | Date | Type | Department | Care Team | Description | +--------+---------+ + + + | 06/25/ | Surgery | [facility] | Frandy Teresa, | Canceled | | 2013 | | MED CTR OR INTRA OP | DO [address] | PROCEDURE NOT | | | | [address] | [address] [place], [place] | PERFORMED | | | | [place], [place] | [address] | | | | | [address] | | | | | | [phone] | | | +--------+---------+ + + + [...] + + + +---------+ + + | [place]-3 Fatty | Take 1,000 mg by | [...] | | | | | [place], [place] | | | | | | [id number] | | | | | | | [...] mL/min/1.73m2 | [facility] | | | [place] | RATE,ESTIMATED | | MEDICAL | | | | mL/min/1.31e4Dfff than | | CENTER - | | [...] + | [facility] | [address] | [place] | [phone] | | [facility] | | [address] | | | - LABORATORY | | | | + + + + + | [facility] | [address] | [place] | | | [facility] | | [address] | | | - LABORATORY | | [...] + | [facility] | [address] | [place] | [phone] | | [facility] | | [address] | | | - LABORATORY | | | | + + + + + | [facility] | [address] | [place] | | | [facility] | | [address] | | | - LABORATORY | | [...] [address] | [place] | [phone] | | [facility] | | [address] | | | - LABORATORY | | | | + + + + + | [facility] | [address] | [place], [place] | | | [facility] | | [address] | | | - LABORATORY | | [...] | | [facility] | | [address] | | | - BLOOD BANK | [...] + | [facility] | [address] | [place], [place] | [phone] | | [facility] | | [address] | | | - LABORATORY | | | | + + + + + | [facility] | [address] | [place], [place] | | | [facility] | | [address] | | | - LABORATORY | | [...]
--- OUTSIDE RECORDS SUMMARY | ~2019-09-06 | XMS | Encounter Summary ---
Demographics + + + | Address | [address] | | | [place] [address] | + + + | Home Phone [...] [place] | | | | | [address] | | + + + + + Care Team Providers + +------+ + | Care Director Of Application Development Name | Role | Phone | [...] | 03/10/ | Refill | [facility] | Katharine Cardona PA-C | Medication Refill | | 2014 | | MEDICINE [address] | [address] [place] | | | | | Street [place] | [place] [address] | | | | | [place] [address] | [phone] | | | | | [phone] | | | +--------+--------+ + + + [...] [place] | | | | | | [address] | | | | | | | | +--------+---------+ + + + documented as of this encounter Visit Diagnoses + + | Diagnosis | + + | Essential hypertension - Primary Unspecified essential hypertension | + + documented in this encounter"
--- OUTSIDE RECORDS SUMMARY | ~2019-09-06 | XMS | Encounter Summary ---
Demographics + + + | Address | [address] | | | [place] [address] | + + + | Home Phone [...] [place] | | | | | [address] | | + + + + + Care Team Providers + +------+ + | Care Windows Technical Specialist Name | Role | Phone | [...] | Frandy Simons DO | [address] | | | | | of skin | [address] | [place], | | | | | sensation | [address] | [place] | | | | | Arthrodesis | [place], [place] | [address] | | | | | status Left | [address] | Phone: | | | | | leg | Phone: | [phone] | | | | | weakness | [phone] | Fax: | | | | | Procedures | Fax: | [phone] | | | | | MRI Lumbar | [phone] | | | | | | Spine [...] [address] | [address] [place], [place] | | | | | [place], [place] | [address] | | | | | [address] | | | | | | [phone] | | | +--------+ + + + [...] [place] | | | | | | [address] | | | | | | | [...] the round structure with high T1 and U8xtokqk in the right L3 vertebral | | [...] + | MISCELLANEOUS LAB | | | [phone] | + +---------+ + + | MISCELANIOUS LAB | | | [phone] | + +---------+ + + documented in [...]
--- OUTSIDE RECORDS SUMMARY | ~2019-09-06 | XMS | Encounter Summary ---
Demographics + + + | Address | [address] | | | [place] [address] | + + + | Home Phone [...] [place] | | | | | [address] | | + + + + + Care Team Providers + +------+ + | Care Gate Tender Name | Role | Phone | + +------+ + | Adriano Patrick MD | PCP | | + +------+ + Reason for Visit +--------+ + | Reason | Comments | +--------+ + | Other | Patient concerns | +--------+ + Encounter Details +--------+ + + + + | Date | Type | Department | Care Team | Description | +--------+ + + + + | 07/30/ | Telephone | [facility] | Ashley Chávez | Talia (Patient | | 2019 | | CARDIOLOGY [place] Abad, Welt Treater | mariela ) | | | | [address] | | | | | | [place], [place] | | | | | | [address] | | | | | | [phone] | | | +--------+ + + + [...] [place] | | | | | | [address] | | | | | | | | +--------+---------+ + + + documented as of this encounter Visit Diagnoses Not on filedocumented in this encounter"
--- OUTSIDE RECORDS SUMMARY | ~2019-09-06 | XMS | Encounter Summary ---
Demographics + + + | Address | [address] | | | [place] [address] | + + + | Home Phone [...] [place] | | | | | [address] | | + + + + + Care Team Providers + +------+ + | Care Hair Or Beauty Salon Manager Name | Role | Phone | + +------+ + | Adriano Patrick MD | PCP | | + +------+ + Encounter Details +--------+ + + + + | Date | Type | Department | Care Team | Description | +--------+ + + + + | 05/16/ | Orders Only | [facility] | Provider, | | | 2018 | | SYSTEM GENERIC OP | [address] | | | | | CONVERSION [address] | [address] | | | | | [address] [place], [place] | [place] [address] | | | | | [address] | | | | | | [phone] | | | +--------+ + + + [...] | | | | | [place], [place] | | | | | | [address] | | | | | | | | +--------+---------+ + + + documented as of this encounter Visit Diagnoses Not on filedocumented in this encounter"
--- OUTSIDE RECORDS SUMMARY | ~2019-09-06 | XMS | Encounter Summary ---
Demographics + + + | Address | [address] | | | [place] [address] | + + + | Home Phone [...] [place] | | | | | [address] | | + + + + + Care Team Providers + +------+ + | Care Ramp Flight Attendant Name | Role | Phone | + [...] [address] | [address] [place], [place] | fusion | | | | [place], [place] | [address] | | | | | [address] | | | | | | [phone] | | | +--------+ + + + [...] [place] | | | | | | [address] | | | | | | | | +--------+---------+ + + + documented as of this encounter Visit Diagnoses + + | Diagnosis | + + | Lumbago - Primary | + + | S/P lumbar fusion Arthrodesis status | + + documented in this encounter"
--- OUTSIDE RECORDS SUMMARY | ~2019-09-06 | XMS | Encounter Summary ---
Demographics + + + | Address | [address] | | | [place] [address] | + + + | Home Phone [...] [place] | | | | | [address] | | + + + + + Care Team Providers + +------+ + | Care Shrub Planter Name | Role | Phone | + [...] + + | 07/10/ | Telephone | [facility] | Frandy Teresa, | Imaging Only (1 year | | 2014 | | NEUROSURGERY [address] | DO [address] | x-ray ) | | | | [address] | [address] [place], [place] | | | | | [place], [place] | [id number] | | | | | [address] | | | | | | [phone] | | | +--------+ + + + [...] [place] | | | | | | [address] | | | | | | | | +--------+---------+ + + + documented as of this encounter Visit Diagnoses Not on filedocumented in this encounter"
--- OUTSIDE RECORDS SUMMARY | ~2019-09-06 | XMS | Encounter Summary ---
Demographics + + + | Address | [address] | | | [place] [address] | + + + | Home Phone [...] [place] | | | | | [address] | | + + + + + Care Team Providers + +------+ + | Care Senior Housekeeper Name | Role | Phone | + [...] | | | spondylolist | | [address] | | | | | hesis | | [place], | | | | | Spinal | | [place] [address] | | | | | stenosis, | | Phone: | | | | | lumbar | | [phone] | | | | | region, | | Fax: | | | | | without | | [phone] | | | | | neurogenic | [...] | | | | | | | [place] | | | | | | [...] | | | | | | [place] | | | | | | | [...] | | | | | | [place] | | | | | | | [...] + + | 07/02/ | Hospital | [facility] | Frandy Teresa, | Spinal stenosis, | | 2013 | Encounter | MED CTR XRAY [address] | DO [address] | lumbar region, | | | | [place] | [address] [place], [place] | without neurogenic | | | | [place] [address] | [address] | claudication | | | | [phone] | | (Primary Dx) | +--------+ + [...] + + + +---------+ + + | [place]-3 Fatty | Take 1,000 mg by | [...] [place] | | | | | | [address] | | | | | | | [...]
--- OUTSIDE RECORDS SUMMARY | ~2019-09-06 | XMS | Encounter Summary ---
Demographics + + + | Address | [address] | | | [place] [address] | + + + | Home Phone [...] [place] | | | | | [address] | | + + + + + Care Team Providers + +------+ + | Care Tank Filler Name | Role | Phone | + +------+ + | Natalee Andersen NP | PCP | | + +------+ + Encounter Details +--------+ + + + + | Date | Type | Department | Care Team | Description | +--------+ + + + + | 06/25/ | Hospital | [facility] | Frandy Teresa, | Acquired | | 2014 | Encounter | MED CTR XRAY [address] | DO [address] | spondylolisthesis | | | | [place] | [address] [place], [place] | | | | | [place] [address] | [address] | | | | | [phone] | | | +--------+ + + + [...] capsules by | | 0 | | 07/08/201 | | (PAPAYA ENZYME PO) | mouth [...] + + + +---------+ + + | [place]-3 Fatty | Take 1,000 mg by | [...] [place] | | | | | | [address] | | | | | | | | +--------+---------+ + + + documented as of this encounter Visit Diagnoses + + | Diagnosis | + + | Acquired spondylolisthesis | + + documented in this encounter"
--- OUTSIDE RECORDS SUMMARY | ~2019-09-06 | XMS | Encounter Summary ---
Demographics + + + | Address | [address] | | | [place] [address] | + + + | Home Phone [...] [place] | | | | | [address] | | + + + + + Care Team Providers + +------+ + | Care Tow Motor Operator Name | Role | Phone | [...] | | | | | pain, | [place], [place] | | | | | | bilateral | [address] | | | | | | Degenerative | Phone: | | | | | | disc | [phone] | | | | | | disease, | Fax: | | | | | | lumbar | [phone] | | | | | | Spinal [...] [address] | [address] [place], [place] | (Primary Dx); Knee | | | | [place], [place] | [address] | pain, bilateral; | | | | [address] | | DEGENERATIVE DISC | | | | [phone] | | DISEASE, LUMBAR | | | [...] | | | | | [place] | | | | | | [address] | | | | | | | [...]
--- OUTSIDE RECORDS SUMMARY | ~2019-09-06 | XMS | Encounter Summary ---
Demographics + + + | Address | [address] | | | [place] [address] | + + + | Home Phone [...] [place] | | | | | [address] | | + + + + + Care Team Providers + +------+ + | Care Air Breaker Operator Name | Role | Phone | [...] + + | 08/15/ | Documentati | [facility] | Katharine Moncada, | Other (urgent | | 2019 | on | CARDIOLOGY [place] | Technologist | report) | | | | [address] | | | | | | [place] | | | | | | [address] | | | | | | [phone] | | | +--------+ + + + [...] [place] | | | | | | [address] | | | | | | | | +--------+---------+ + + + documented as of this encounter Visit Diagnoses Not on filedocumented in this encounter"
--- OUTSIDE RECORDS SUMMARY | ~2019-09-06 | XMS | Encounter Summary ---
Demographics + + + | Address | [address] | | | [place] [address] | + + + | Home Phone [...] [place] | | | | | [address] | | + + + + + Care Team Providers + +------+ + | Care Jewelry Polisher Name | Role | Phone | [...] + + | 08/13/ | Documentati | [facility] | Katharine Moncada, | Other (urgent | | 2019 | on | CARDIOLOGY [place] | Technologist | report) | | | | [address] | | | | | | [place] | | | | | | [address] | | | | | | [phone] | | | +--------+ + + + [...] [place] | | | | | | [address] | | | | | | | | +--------+---------+ + + + documented as of this encounter Visit Diagnoses Not on filedocumented in this encounter"
--- OUTSIDE RECORDS SUMMARY | ~2019-09-06 | XMS | Encounter Summary ---
Demographics + + + | Address | [address] | | | [place] [address] | + + + | Home Phone [...] [place] | | | | | [address] | | + + + + + Care Team Providers + +------+ + | Care Development Planner Name | Role | Phone | + +------+ + | Natalee Andersen NP | PCP | | + +------+ + Encounter Details +--------+ + + + + | Date | Type | Department | Care Team | Description | +--------+ + + + + | 09/27/ | Hospital | [facility] | Frandy Teresa, | Lumbar spondylosis; | | 2013 | Encounter | MED CTR XRAY [address] | DO [address] | S/P lumbar fusion | | | | [place] | [address] [place], [place] | | | | | [place] [address] | [address] | | | | | [phone] | | | +--------+ + + + [...] + + +---------+ + + | OLANZapine galenis | Take 15 mg by mouth | | 0 | 03/31/20 | | | (ZYPREXA ZYDIS) 15 | nightly. | | | 12 | 5 | | MG disintegrating | | | | | | | tablet | | | | | | + + + +---------+ + + | [place]-3 Fatty | Take 1,000 mg by | [...] [place] | | | | | | [address] | | | | | | | [...] + | MISCELLANEOUS LAB | | | [phone] | + +---------+ + + | MISCELANIOUS LAB | | | [phone] | + +---------+ + + documented in this encounter Visit Diagnoses + + | Diagnosis | + + | Lumbar spondylosis Lumbosacral spondylosis without myelopathy | + + | S/P lumbar fusion Arthrodesis status | + + documented in this encounter"
--- OUTSIDE RECORDS SUMMARY | ~2019-09-06 | XMS | Encounter Summary ---
Demographics + + + | Address | [address] | | | [place] [address] | + + + | Home Phone [...] [place], [place] | | | | | [address] | | + + + + + Care Team Providers + +------+ + | Care Fitter Hand Name | Role | Phone | + +------+ + PCP | Unavailable | + +------+ + Encounter Details +--------+ + + + + | Date | Type | Department | Care Team | Description | +--------+ + + + + | 06/19/ | Hospital | [facility] | | | | 1991 - | Encounter | MED CTR GENERIC PSY | | | | | | CONV DEPT [address] | | | | 06/24/ | | [place], | | | | 1991 | | [place] [address] | | | | | | [phone] | | | +--------+ + + + [...] [place] | | | | | | [address] | | | | | | | | +--------+---------+ + + + documented as of this encounter Visit Diagnoses Not on filedocumented in this encounter"
--- OUTSIDE RECORDS SUMMARY | ~2019-09-06 | XMS | Encounter Summary ---
Demographics + + + | Address | [address] | | | [place] [address] | + + + | Home Phone [...] [place], [place] | | | | | [address] | | + + + + + Care Team Providers + +------+ + | Care Frit Coater Name | Role | Phone | + +------+ + PCP | Unavailable | + +------+ + Encounter Details +--------+ + + + + | Date | Type | Department | Care Team | Description | +--------+ + + + + | 06/30/ | Hospital | [facility] | | | | 1999 - | Encounter | MED CTR GENERIC PSY | | | | | | CONV DEPT [address] | | | | 07/05/ | | [address], | | | | 1999 | | [place] [address] | | | | | | [phone] | | | +--------+ + + + [...] [place] | | | | | | [address] | | | | | | | | +--------+---------+ + + + documented as of this encounter Visit Diagnoses Not on filedocumented in this encounter"
--- OUTSIDE RECORDS SUMMARY | ~2019-09-06 | XMS | Encounter Summary ---
Demographics + + + | Address | [address] | | | [place] [address] | + + + | Home Phone [...] [place] | | | | | [address] | | + + + + + Care Team Providers + +------+ + | Care Construction Carpenters Helper Name | Role | Phone | [...] + + | 04/05/ | Telephone | [facility] [place] | [facility], | Results | | 2012 | | GASTROENTEROLOGY | [place] [address] | | | | | [address] [place] | [place], [address] | | | | | [address] [place], [place] | [place], [place] | | | | | [address] | [address] | | | | | [phone] | | | +--------+ + + + [...] [place] | | | | | | [address] | | | | | | | | +--------+---------+ + + + documented as of this encounter Visit Diagnoses Not on filedocumented in this encounter"
--- OUTSIDE RECORDS SUMMARY | ~2019-09-06 | XMS | Encounter Summary ---
Demographics + + + | Address | [address] | | | [place] [address] | + + + | Home Phone [...] [place], [place] | | | | | [address] | | + + + + + Care Team Providers + +------+ + | Care Business School Dean Name | Role | Phone | + +------+ + PCP | Unavailable | + +------+ + Encounter Details +--------+ + + + + | Date | Type | Department | Care Team | Description | +--------+ + + + + | 07/17/ | Hospital | [facility] | | | | 1997 - | Encounter | MED CTR GENERIC PSY | | | | | | CONV DEPT [address] | | | | 07/25/ | | [place], | | | | 1997 | | [place] [address] | | | | | | [phone] | | | +--------+ + + + [...] [place] | | | | | | [address] | | | | | | | | +--------+---------+ + + + documented as of this encounter Visit Diagnoses Not on filedocumented in this encounter"
--- OUTSIDE RECORDS SUMMARY | ~2019-09-06 | XMS | Encounter Summary ---
Demographics + + + | Address | [address] | | | [place] [address] | + + + | Home Phone [...] [place] | | | | | [address] | | + + + + + Care Team Providers + +------+ + | Care District Home Economics Agent Name | Role | Phone | [...] | | | spondylolist | | [address] | | | | | hesis | | [place], | | | | | Spinal | | [place] [address] | | | | | stenosis, | | Phone: | | | | | lumbar | | [phone] | | | | | region, | | Fax: | | | | | without | | [phone] | | | | | neurogenic | [...] | | | | | | | [place] | | | | | | [...] | | | | | | [place] | | | | | | | [...] | | | | | | SEG [place] | | | | | | | [...] + + | 07/02/ | Hospital | [facility] | Frandy Teresa, | Spinal stenosis, | | 2013 | Encounter | MED CTR XRAY [address] | DO [address] | lumbar region, | | | | [place] | [address] [place], [place] | without neurogenic | | | | [place] [address] | [address] | claudication | | | | [phone] | | (Primary Dx) | +--------+ + [...] + + + +---------+ + + | [place]-3 Fatty | Take 1,000 mg by | [...] [place] | | | | | | [address] | | | | | | | [...]
--- OUTSIDE RECORDS SUMMARY | ~2019-09-06 | XMS | Encounter Summary ---
Demographics + + + | Address | [address] | | | [place] [address] | + + + | Home Phone [...] [place] | | | | | [address] | | + + + + + Care Team Providers + +------+ + | Care Pattern Maker Programer Name | Role | Phone | + [...] + | 09/26/ | Refill | [facility] | Frandy Teresa, | Medication Refill | | 2013 | | NEUROSURGERY [address] | DO [address] | | | | | [address] | [address] [place], [place] | | | | | [place], [place] | [id number] | | | | | [address] | | | | | | [phone] | | | +--------+--------+ + + + [...] | | | | | [place] | | | | | | [address] | | | | | | | | +--------+---------+ + + + documented as of this encounter Visit Diagnoses Not on filedocumented in this encounter"
--- OUTSIDE RECORDS SUMMARY | ~2019-09-06 | XMS | Encounter Summary ---
Demographics + + + | Address | [address] | | | [place] [address] | + + + | Home Phone [...] [place] | | | | | [address] | | + + + + + [...] + + | 03/06/ | Hospital | [facility] | Katharine Cardona PA-C | Essential | | 2015 | Encounter | MED CTR LABORATORY | [address] | hypertension | | | | [address] [place] | [place] [address] | | | | | [place], [place] | [phone] | | | | | [address] | | | | | | [phone] | | | +--------+ + + + [...] 0 | | | | (VITAMIN D-3) [address] | mouth Once a week. | | [...] + + + +---------+ + + | [place]-3 Fatty | Take 1,000 mg by | 60 each | 5 | 03/09/20 | | | Acids (FISH OIL | mouth 2 times daily. | | | 15 | 9 | | CONCENTRATE) 1000 MG | | | | | | | CAPS | | | | | | + + + +---------+ + + | [place]-3 Fatty | Take 1,000 mg by | [...] | | | | | [place] | | | | | | [address] | | | | | | | [...] mL/min/1.73m2 | [facility] | | | [facility] [facility] | RATE,ESTIMATED | | MEDICAL | | | | mL/min/1.62h2Nxaj than | | CENTER - | | [...] | 9.6 | 8.3 - 10.5 | [facility] | | | | | mg/dL | [facility] | | | | | | MEDICAL | | | | | | CENTER - | | | | | | LABORATORY | | + + + + + + | Albumin | 4.1 | 3.2 - 5.0 g/dL | [facility] | | | | | | [facility] | | | | | [...] [address] | [place] | [phone] | | [facility] | | [address] | | | - LABORATORY | | | | + + + + + documented in this encounter Visit Diagnoses + + | Diagnosis | + + | Essential hypertension Unspecified essential hypertension | + + documented in this encounter"
--- OUTSIDE RECORDS SUMMARY | ~2019-09-06 | XMS | Encounter Summary ---
Demographics + + + | Address | [address] | | | [place] [address] | + + + | Home Phone [...] [place] | | | | | [address] | | + + + + + Care Team Providers + +------+ + | Care Global Cmo Name | Role | Phone | + +------+ + | Natalee Andersen NP | PCP | | + +------+ + Encounter Details +--------+ + + + + | Date | Type | Department | Care Team | Description | +--------+ + + + + | 06/25/ | Hospital | [facility] | Frandy Teresa, | Diabetes mellitus | | 2014 | Encounter | MED CTR OR INTRA OP | DO [address] | (HCC) (Primary Dx) | | | | [address] | [address] [place], [place] | | | | | [place], [place] | [address] | | | | | [address] | | | | | | [phone] | | | +--------+ + + + [...] + + + +---------+ + + | [place]-3 Fatty | Take 1,000 mg by | [...] [place] | | | | | | [id number] | | | | | | | [...] mL/min/1.73m2 | [facility] | | | BERMUDIAN | RATE,ESTIMATED | | MEDICAL | | | | mL/min/1.45b2Vvvk than | | CENTER - | | [...] + | [facility] | [address] | [place], [place] | [phone] | | [facility] | | [address] | | | - LABORATORY | | | | + + + + + | [facility] | [address] | [place], [place] | | | [facility] | | [address] | | | - LABORATORY | | [...] + | [facility] | [address] | [place] | [phone] | | [facility] | | [address] | | | - LABORATORY | | | | + + + + + | [facility] | [address] | [place], [place] | | | [facility] | | [address] | | | - LABORATORY | | [...] [address] | [place] | [phone] | | [facility] | | [address] | | | - LABORATORY | | | | + + + + + | [facility] | [address] | [place] | | | [facility] | | [address] | | | - LABORATORY | | [...] [place] | | | [facility] | | [address] | | | - BLOOD BANK | [...] | + + + + + | [facility] | [address] | [place] | [phone] | | [facility] | | [address] | | | - LABORATORY | | | | + + + + + | [facility] | [address] | [place], [place] | | | [facility] | | [address] | | | - LABORATORY | | [...]
--- OUTSIDE RECORDS SUMMARY | ~2019-09-06 | XMS | Encounter Summary ---
Demographics + + + | Address | [address] | | | [place] [address] | + + + | Home Phone [...] [place] | | | | | [address] | | + + + + + Care Team Providers + +------+ + | Care Heel Pricker Name | Role | Phone | + +------+ + | Basim Bolanos MD | PCP | | + +------+ + Encounter Details +--------+ + + + + | Date | Type | Department | Care Team | Description | +--------+ + + + + | 04/18/ | Abstract | [facility] [place] | [facility], | | | 2012 | | GASTROENTEROLOGY | [address]UNATO [address] | | | | | [address] [place] | [place], [address] | | | | | [address] [place], [place] | [place], [place] | | | | | [address] | [address] | | | | | [phone] | | | +--------+ + + + [...] | | | | | [place] | | | | | | [address] | | | | | | | | +--------+---------+ + + + documented as of this encounter Visit Diagnoses Not on filedocumented in this encounter"
--- OUTSIDE RECORDS SUMMARY | ~2019-09-06 | XMS | Encounter Summary ---
Demographics + + + | Address | [address] | | | [place] [address] | + + + | Home Phone [...] [place] | | | | | [address] | | + + + + + Care Team Providers + +------+ + | Care Manager Internet Name | Role | Phone | + +------+ + | Thierry Fry MD | PCP | | + +------+ + Encounter Details +--------+ + + + + | Date | Type | Department | Care Team | Description | +--------+ + + + + | 03/06/ | Hospital | [facility] | Katharine Cardona PA-C | Essential | | 2015 | Encounter | MED CTR LABORATORY | [address] | hypertension | | | | [address] [place] | [place] [address] | | | | | [place], [place] | [phone] | | | | | [address] | | | | | | [phone] | | | +--------+ + + + [...] 0 | | | | (VITAMIN D-3) [address] | mouth Once a week. | | [...] + + + +---------+ + + | [place]-3 Fatty | Take 1,000 mg by | 60 each | 5 | 03/09/20 | | | Acids (FISH OIL | mouth 2 times daily. | | | 15 | 9 | | CONCENTRATE) 1000 MG | | | | | | | CAPS | | | | | | + + + +---------+ + + | [place]-3 Fatty | Take 1,000 mg by | [...] | | | | | [place] | | | | | | [address] | | | | | | | [...] mL/min/1.73m2 | [facility] | | | [place] | RATE,ESTIMATED | | MEDICAL | | | | mL/min/1.07p5Wwcg than | | CENTER - | | [...] | 9.6 | 8.3 - 10.5 | [facility] | | | | | mg/dL | [facility] | | | | | | MEDICAL | | | | | | CENTER - | | | | | | LABORATORY | | + + + + + + | Albumin | 4.1 | 3.2 - 5.0 g/dL | [facility] | | | | | | [facility] | | | | | | [...] [address] | [place] | [phone] | | [facility] | | [address] | | | - LABORATORY | | | | + + + + + documented in this encounter Visit Diagnoses + + | Diagnosis | + + | Essential hypertension Unspecified essential hypertension | + + documented in this encounter"
--- OUTSIDE RECORDS SUMMARY | ~2019-09-06 | XMS | Encounter Summary ---
Demographics + + + | Address | [address] | | | [place] [address] | + + + | Home Phone [...] [place] | | | | | [address] | | + + + + + Care Team Providers + +------+ + | Care Associate Professor Of Biostatistics Name | Role | Phone | + +------+ + | Adriano Patrick MD | PCP | | + +------+ + Encounter Details +--------+ + + + + | Date | Type | Department | Care Team | Description | +--------+ + + + + | 06/12/ | Hospital | [facility] | Frandy Teresa, | No Show | | 2014 | Encounter | MED CTR | DO [address] | | | | | ELECTRODIAGNOSTICS | [address] [place], [place] | | | | | [address] [place] | [address] | | | | | [place] [address] | | | | | | [phone] | | | +--------+ + + + [...] [place] | | | | | | [address] | | | | | | | | +--------+---------+ + + + documented as of this encounter Visit Diagnoses Not on filedocumented in this encounter"
--- OUTSIDE RECORDS SUMMARY | ~2019-09-06 | XMS | Encounter Summary ---
Demographics + + + | Address | [address] | | | [place] [address] | + + + | Home Phone [...] [place], [place] | | | | | [address] | | + + + + + Care Team Providers + +------+ + | Care Engine Assembler Name | Role | Phone | + +------+ + PCP | Unavailable | + +------+ + Encounter Details +--------+ + + + + | Date | Type | Department | Care Team | Description | +--------+ + + + + | 09/10/ | Hospital | [facility] | | | | 1992 | Encounter | MED CTR LABORATORY | | | | | | [address] | | | | | | [place] | | | | | | [address] | | | | | | [phone] | | | +--------+ + + + [...] | | | | | [place] | | | | | | [id number] | | | | | | | | +--------+---------+ + + + documented as of this encounter Visit Diagnoses Not on filedocumented in this encounter"
--- OUTSIDE RECORDS SUMMARY | ~2019-09-06 | XMS | Encounter Summary ---
Demographics + + + | Address | [address] | | | [place] [address] | + + + | Home Phone [...] [place], [place] | | | | | [address] | | + + + + + Care Team Providers + +------+ + | Care Children'S Entertainer Name | Role | Phone | + +------+ + PCP | Unavailable | + +------+ + Encounter Details +--------+ + + + + | Date | Type | Department | Care Team | Description | +--------+ + + + + | 07/17/ | Hospital | [facility] | | | | 1997 - | Encounter | MED CTR GENERIC PSY | | | | | | CONV DEPT [address] | | | | 07/25/ | | [address] [place], | | | | 1997 | | [place] [address] | | | | | | [phone] | | | +--------+ + + + [...] [place] | | | | | | [address] | | | | | | | | +--------+---------+ + + + documented as of this encounter Visit Diagnoses Not on filedocumented in this encounter"
--- OUTSIDE RECORDS SUMMARY | ~2019-09-06 | XMS | Encounter Summary ---
Demographics + + + | Address | [address] | | | [place] [address] | + + + | Home Phone [...] [place], [place] | | | | | [address] | | + + + + + Care Team Providers + +------+ + | Care Station Worker Name | Role | Phone | + +------+ + PCP | Unavailable | + +------+ + Encounter Details +--------+ + + + + | Date | Type | Department | Care Team | Description | +--------+ + + + + | 12/09/ | Hospital | [facility] | Serafin Bautista | | | 2012 | Encounter | MED CTR XRAY [address] | T, MD [address] | | | | | [place] | [address] [place], [place] | | | | | [place] [address] | [address] | | | | | [phone] | | | +--------+ + + + [...] [place] | | | | | | [address] | | | | | | | [...] Performed At | + + + | [facility] Diagnostic Imaging Department | [facility] | | [address] | [facility] | | PROCEDURE NOTE EPIDURAL | DIAG [...] Manohar Martinez Conversion - 11/30/2013 4:45 PM [facility] | | Diagnostic Imaging Department | | [address] | | | | | [...] + + | Performing | Address | City[facility]State[facility] | Phone Number | | Organization | | | | + +---------+ + + | [place] | | | | | [facility] | | | | + +---------+ + + documented in this encounter Visit Diagnoses Not on filedocumented in this encounter"
--- OUTSIDE RECORDS SUMMARY | ~2019-09-06 | XMS | Encounter Summary ---
Demographics + + + | Address | [address] | | | [place] [address] | + + + | Home Phone [...] [place] | | | | | [address] | | + + + + + Care Team Providers + +------+ + | Care Cable Installer Repairer Helper Name | Role | Phone | + +------+ + | Natalee Andersen NP | PCP | | + +------+ + Reason for Visit + + + | Reason | Comments | + + + | Appointment | | + + + Encounter Details +--------+ + + + + | Date | Type | Department | Care Team | Description | +--------+ + + + + | 07/19/ | Telephone | [facility] | Frandy Teresa, | Appointment | | 2013 | | NEUROSURGERY [address] | DO [address] | | | | | [address] | [address] [place], [place] | | | | | [place], [place] | [address] | | | | | [address] | | | | | | [phone] | | | +--------+ + + + [...] [place] | | | | | | [address] | | | | | | | | +--------+---------+ + + + documented as of this encounter Visit Diagnoses Not on filedocumented in this encounter"
--- OUTSIDE RECORDS SUMMARY | ~2019-09-06 | XMS | Encounter Summary ---
Demographics + + + | Address | [address] | | | [place] [address] | + + + | Home Phone [...] [place] | | | | | [address] | | + + + + + Care Team Providers + +------+ + | Care Lodging Facilities Attendant Name | Role | Phone | + +------+ + | Natalee Andersen NP | PCP | | + +------+ + Encounter Details +--------+ + + + + | Date | Type | Department | Care Team | Description | +--------+ + + + + | 09/27/ | Hospital | [facility] | Frandy Teresa, | Lumbar spondylosis; | | 2013 | Encounter | MED CTR XRAY [address] | DO [address] | S/P lumbar fusion | | | | [place] | [address] [place], [place] | | | | | [place] [address] | [address] | | | | | [phone] | | | +--------+ + + + [...] + + + +---------+ + + | [place]-3 Fatty | Take 1,000 mg by | [...] [place] | | | | | | [address] | | | | | | | [...] + | MISCELLANEOUS LAB | | | [phone] | + +---------+ + + | MISCELANIOUS LAB | | | [phone] | + +---------+ + + documented in this encounter Visit Diagnoses + + | Diagnosis | + + | Lumbar spondylosis Lumbosacral spondylosis without myelopathy | + + | S/P lumbar fusion Arthrodesis status | + + documented in this encounter"
--- OUTSIDE RECORDS SUMMARY | ~2019-09-06 | XMS | Encounter Summary ---
Demographics + + + | Address | [address] | | | [place] [address] | + + + | Home Phone [...] [place], [place] | | | | | [address] | | + + + + + Care Team Providers + +------+ + | Care Superintendent Pier Name | Role | Phone | + +------+ + PCP | Unavailable | + +------+ + Encounter Details +--------+ + + + + | Date | Type | Department | Care Team | Description | +--------+ + + + + | 02/22/ | Hospital | [facility] | | | | 1996 | Encounter | MED CTR EMERGENCY | | | | | | [address] | | | | | | [place] | | | | | | [address] | | | | | | [phone] | | | +--------+ + + + [...] | | | | | [place] | | | | | | [address] | | | | | | | | +--------+---------+ + + + documented as of this encounter Visit Diagnoses Not on filedocumented in this encounter"
--- OUTSIDE RECORDS SUMMARY | ~2019-09-06 | XMS | Encounter Summary ---
Demographics + + + | Address | [address] | | | [place] [address] | + + + | Home Phone [...] [place] | | | | | [address] | | + + + + + Care Team Providers + +------+ + | Care Manager Supply Name | Role | Phone | + [...] + | 02/27/ | Telephone | [facility] | Katharine Cardona PA-C | Appointment (New | | 2014 | | MEDICINE [address] | [address] | Patient) | | | | [address] [place] | [place] [address] | | | | | [place] [address] | [phone] | | | | | [phone] | | | +--------+ + + + [...] [place] | | | | | | [address] | | | | | | | | +--------+---------+ + + + documented as of this encounter Visit Diagnoses Not on filedocumented in this encounter"
--- OUTSIDE RECORDS SUMMARY | ~2019-09-06 | XMS | Encounter Summary ---
Demographics + + + | Address | [address] | | | [place] [address] | + + + | Home Phone [...] [place] | | | | | [address] | | + + + + + Care Team Providers + +------+ + | Care Mail List Processor Name | Role | Phone | [...] + | 09/26/ | Refill | [facility] | Frandy Teresa, | Medication Refill | | 2013 | | NEUROSURGERY [address] | DO [address] | | | | | [address] | [address] [place], [place] | | | | | [place], [place] | [id number] | | | | | [address] | | | | | | [phone] | | | +--------+--------+ + + + [...] | | | | | [place] | | | | | | [address] | | | | | | | | +--------+---------+ + + + documented as of this encounter Visit Diagnoses Not on filedocumented in this encounter"
--- OUTSIDE RECORDS SUMMARY | ~2019-09-06 | XMS | Encounter Summary ---
Demographics + + + | Address | [address] | | | [place] [address] | + + + | Home Phone [...] [place] | | | | | [address] | | + + + + + Care Team Providers + +------+ + | Care Nurse Gynecology Name | Role | Phone | + [...] Documentati | [facility] | Katharine Mocnada, | Other (urgent | | 2019 | on | CARDIOLOGY EGNESIS | Technologist | report) | | | | [address] | | | | | | [place] | | | | | | [address] | | | | | | [phone] | | | +--------+ + + + [...] [place] | | | | | | [address] | | | | | | | | +--------+---------+ + + + documented as of this encounter Visit Diagnoses Not on filedocumented in this encounter"
--- OUTSIDE RECORDS SUMMARY | ~2019-09-06 | XMS | Encounter Summary ---
Demographics + + + | Address | [address] | | | [place] [address] | + + + | Home Phone [...] [place] | | | | | [address] | | + + + + + Care Team Providers + +------+ + | Care Transport Tech Name | Role | Phone | + +------+ + | Basim Bolanos MD | PCP | | + +------+ + Encounter Details +--------+ + + + + | Date | Type | Department | Care Team | Description | +--------+ + + + + | 04/18/ | Abstract | [facility] [place] | [facility], | | | 2012 | | GASTROENTEROLOGY | [address] | | | | | [address] [place] | [place], [address] | | | | | [address] [place], [place] | [place], [place] | | | | | [address] | [address] | | | | | [phone] | | | +--------+ + + + [...] | | | | | [address] [place] | | | | | | [address] | | | | | | | | +--------+---------+ + + + documented as of this encounter Visit Diagnoses Not on filedocumented in this encounter"
--- OUTSIDE RECORDS SUMMARY | ~2019-09-06 | XMS | Encounter Summary ---
Demographics + + + | Address | [address] | | | [place] [address] | + + + | Home Phone [...] [place] | | | | | [address] | | + + + + + Care Team Providers + +------+ + | Care Stable Hand Name | Role | Phone | [...] + + | 08/09/ | Clinical | [facility] | Desiree Peterson DO | Syncope, unspecified | | 2019 | Support | CARDIOLOGY [place] | [address] | syncope type | | | | [address] | [place], [place] | | | | | [place] [address] | [address] | | | | | [place] | | | | | | [address] | Dora [address] | | | | | [phone] | CAROLINE [address] | | | | | | [address] | | | | | | [place] [address] | | | | | | [phone] | | | | | | | [...] [place] | | | | | | [address] | | | | | | | | +--------+---------+ + + + documented as of this encounter Visit Diagnoses + + | Diagnosis | + + | Syncope, unspecified syncope type | + + documented in this encounter"
--- OUTSIDE RECORDS SUMMARY | ~2019-09-06 | XMS | Encounter Summary ---
Demographics + + + | Address | [address] | | | [place] [address] | + + + | Home Phone [...] [place] | | | | | [address] | | + + + + + Care Team Providers + +------+ + | Care Intermediate Project Manager Name | Role | Phone [...] + + | 07/24/ | Telephone | [facility] | Ashley Chávez | Other (Patient is | | 2019 | | CARDIOLOGY [place], Parcel Post Order Clerk | worried about paying | | | | [address] | | for monitor. ) | | | | [place] | | | | | | [address] | | | | | | [phone] | | | +--------+ + + + [...] [place] | | | | | | [address] | | | | | | | | +--------+---------+ + + + documented as of this encounter Visit Diagnoses Not on filedocumented in this encounter"
--- OUTSIDE RECORDS SUMMARY | ~2019-09-06 | XMS | Encounter Summary ---
Demographics + + + | Address | [address] | | | [place] [address] | + + + | Home Phone [...] [place], [place] | | | | | [address] | | + + + + + Care Team Providers + +------+ + | Care Mortgage Loan Assistant Name | Role | Phone | [...] | SR | | | | | [phone] | | | +--------+ + + + [...] [place] | | | | | | [address] | | | | | | | | +--------+---------+ + + + documented as of this encounter Visit Diagnoses Not on filedocumented in this encounter
--- OUTSIDE RECORDS SUMMARY | ~2019-09-06 | XMS | Encounter Summary ---
Demographics + + + | Address | [address] | | | [place] [address] | + + + | Home Phone [...] [place], [place] | | | | | [address] | | + + + + + Care Team Providers + +------+ + | Care Pediatric Immunologist Name | Role | Phone | + +------+ + PCP | Unavailable | + +------+ + Encounter Details +--------+ + + + + | Date | Type | Department | Care Team | Description | +--------+ + + + + | 06/30/ | Hospital | [facility] | | | | 2000 | Encounter | MED CTR EMERGENCY | | | | | | [address] | | | | | | [place] | | | | | | [address] | | | | | | [phone] | | | +--------+ + + + [...] | | | | | [place] | | | | | | [address] | | | | | | | | +--------+---------+ + + + documented as of this encounter Visit Diagnoses Not on filedocumented in this encounter"
--- OUTSIDE RECORDS SUMMARY | ~2019-09-06 | XMS | Encounter Summary ---
Demographics + + + | Address | [address] | | | [place] [address] | + + + | Home Phone [...] [place] | | | | | [address] | | + + + + + Care Team Providers + +------+ + | Care Grab Jack Worker Name | Role | Phone | [...] + | 08/26/ | Refill | [facility] | Frandy Teresa, | Medication Refill | | 2013 | | NEUROSURGERY [address] | DO [address] | | | | | [address] | [address] [place], [place] | | | | | [place], [place] | [address] | | | | | [address] | | | | | | [phone] | | | +--------+--------+ + + + [...] | | | | | [place] | | | | | | [address] | | | | | | | | +--------+---------+ + + + documented as of this encounter Visit Diagnoses Not on filedocumented in this encounter"
--- OUTSIDE RECORDS SUMMARY | ~2019-09-06 | XMS | Encounter Summary ---
Demographics + + + | Address | [address] | | | [place] [address] | + + + | Home Phone [...] [place], [place] | | | | | [address] | | + + + + + Care Team Providers + +------+ + | Care Information Technology Teacher Name | Role | Phone | + +------+ + PCP | Unavailable | + +------+ + Encounter Details +--------+ + + + + | Date | Type | Department | Care Team | Description | +--------+ + + + + | 04/16/ | [facility] | [facility] | Deon Gonzales | | | 2005 | Encounter | MED CTR SLEEP | MD [address] | | | | | [place] [address] | [address] [place] | | | | | [place], [place] | [place] [address] | | | | | [address] | [phone] | | | | | [phone] | | | +--------+ + + + [...] [place] | | | | | | [address] | | | | | | | | +--------+---------+ + + + documented as of this encounter Visit Diagnoses Not on filedocumented in this encounter"
--- OUTSIDE RECORDS SUMMARY | ~2019-09-06 | XMS | Encounter Summary ---
Demographics + + + | Address | [address] | | | [place] [address] | + + + | Home Phone [...] [place] | | | | | [address] | | + + + + + Care Team Providers + +------+ + | Care Seed Laboratory Assistant Name | Role | Phone | [...] + + | 06/28/ | Telephone | [facility] | Ashley Chávez | Talia (Patient | | 2019 | | CARDIOLOGY [place]ad, Tub Wash Operator | called to cancel her | | | | [address] | | appointment) | | | | [place] | | | | | | [address] | | | | | | [phone] | | | +--------+ + + + [...] [place] | | | | | | [address] | | | | | | | | +--------+---------+ + + + documented as of this encounter Visit Diagnoses Not on filedocumented in this encounter"
--- OUTSIDE RECORDS SUMMARY | ~2019-09-06 | XMS | Encounter Summary ---
Demographics + + + | Address | [address] | | | [place] [address] | + + + | Home Phone [...] [place] | | | | | [address] | | + + + + + Care Team Providers + +------+ + | Care Air Sealing Technician Name | Role | Phone | [...] + + | 08/20/ | Documentati | [facility] | Katharine Moncada, | Other (urgent | | 2019 | on | CARDIOLOGY [place] | Technologist | report) | | | | [address] | | | | | | [place] | | | | | | [address] | | | | | | [phone] | | | +--------+ + + + [...] [place] | | | | | | [address] | | | | | | | | +--------+---------+ + + + documented as of this encounter Visit Diagnoses Not on filedocumented in this encounter"
--- OUTSIDE RECORDS SUMMARY | ~2019-09-06 | XMS | Encounter Summary ---
Demographics + + + | Address | [address] | | | [place] [address] | + + + | Home Phone [...] [place] | | | | | [address] | | + + + + + Care Team Providers + +------+ + | Care Nuclear Engineer Name | Role | Phone | [...] + | 03/07/ | Telephone | [facility] | Katharine Cardona PA-C | Results | | 2014 | | [facility] | [address] [place] | | | | | [address] | [place] [address] | | | | | [place], [place] | [phone] | | | | | [address] | | | | | | [phone] | | | +--------+ + + + [...] [place] | | | | | | [id number] | | | | | | | | +--------+---------+ + + + documented as of this encounter Visit Diagnoses Not on filedocumented in this encounter"
--- OUTSIDE RECORDS SUMMARY | ~2019-09-06 | XMS | Encounter Summary ---
Demographics + + + | Address | [address] | | | [place] [address] | + + + | Home Phone [...] [place] | | | | | [address] | | + + + + + Care Team Providers + +------+ + | Care Lunch Cook Name | Role | Phone | + [...] + | 06/20/ | Telephone | [facility] | Frandy Teresa, | Other (surgery | | 2013 | | NEUROSURGERY [address] | DO [address] | reminder ) | | | | [address] | [address] [place], [place] | | | | | [place], [place] | [address] | | | | | [address] | | | | | | [phone] | | | +--------+ + + + [...] | | | | | [place] | | | | | | [address] | | | | | | | | +--------+---------+ + + + documented as of this encounter Visit Diagnoses Not on filedocumented in this encounter"
--- OUTSIDE RECORDS SUMMARY | ~2019-09-06 | XMS | Encounter Summary ---
Demographics + + + | Address | [address] | | | [place] [address] | + + + | Home Phone [...] [place], [place] | | | | | [address] | | + + + + + Care Team Providers + +------+ + | Care Associate Professor Of Geology Name | Role | Phone | + +------+ + PCP | Unavailable | + +------+ + Encounter Details +--------+ + + + + | Date | Type | Department | Care Team | Description | +--------+ + + + + | 12/09/ | Hospital | [facility] | Serafin Bautista | | | 2012 | Encounter | MED CTR XRAY [address] | T, MD [address] | | | | | [place] | ST [place], [place] | | | | | [place] [address] | [address] | | | | | [phone] | | | +--------+ + + + [...] [place] | | | | | | [address] | | | | | | | [...] Performed At | + + + | [facility] Diagnostic Imaging Department | [facility] | | [address] | [facility] | | PROCEDURE NOTE EPIDURAL | [...] Manohar Martinez Conversion - 11/30/2013 4:[address] [facility] | | Diagnostic Imaging Department | | [address] | | | | | | [...] + + | Performing | Address | City/State[facility] | Phone Number | | Organization | | | | + +---------+ + + | [place] | | | | | [facility] | | | | + +---------+ + + documented in this encounter Visit Diagnoses Not on filedocumented in this encounter"
--- OUTSIDE RECORDS SUMMARY | ~2019-09-06 | XMS | Encounter Summary ---
Demographics + + + | Address | [address] | | | [place] [address] | + + + | Home Phone [...] [place], [place] | | | | | [address] | | + + + + + Care Team Providers + +------+ + | Care Accounting/Finance Tutor Name | Role | Phone | [...] Location | | | | | | [phone] | | | +--------+ + + + [...] [place] | | | | | | [address] | | | | | | | | +--------+---------+ + + + documented as of this encounter Visit Diagnoses Not on filedocumented in this encounter"
--- OUTSIDE RECORDS SUMMARY | ~2019-09-06 | XMS | Encounter Summary ---
Demographics + + + | Address | [address] | | | [place] [address] | + + + | Home Phone [...] [place] | | | | | [address] | | + + + + + Care Team Providers + +------+ + | Care Financial Accountant Name | Role | Phone | + +------+ + | Basim Bolanos MD | PCP | | + +------+ + Encounter Details +--------+ + + + + | Date | Type | Department | Care Team | Description | +--------+ + + + + | 03/30/ | Hospital | [facility] | Tyrese Neely MD | | | 2012 | Encounter | MED CTR MP INTRA OP | [address], [place] | | | | | [address] | [address] [place], [place] | | | | | [place], [place] | [address] | | | | | [address] | | | | | | [phone] | | | +--------+ + + + [...] + + + +---------+ + + | [place]-3 Fatty | Take 1,000 mg by | [...] [place] | | | | | | [address] | | | | | | | [...] + | [facility] | [address] | [place] | [phone] | | [facility] | | [address] | | | - LABORATORY | | | | + + + + + | [facility] | [address] | [place] | | | [facility] | | [address] | | | - [...] + | [facility] | [address] | [place], [place] | [phone] | | [facility] | | [address] | | | - LABORATORY | | | | + + + + + | [facility] | [address] | [place], [place] | | | [facility] | | [address] | | | - LABORATORY | | | | + + + + + documented in this encounter Visit Diagnoses Not on filedocumented in this encounter"
--- OUTSIDE RECORDS SUMMARY | ~2019-09-06 | XMS | Encounter Summary ---
Demographics + + + | Address | [address] | | | [place] [address] | + + + | Home Phone [...] [place] | | | | | [address] | | + + + + + Care Team Providers + +------+ + | Care Crosstie Inspector Name | Role | Phone | [...] [address] | [address] [place], [place] | | | | | [place], [place] | [phone] | | | | | [address] | | | | | | [phone] | | | +--------+ + + + [...] | | | | | [place] | | | | | | [address] | | | | | | | | +--------+---------+ + + + documented as of this encounter Visit Diagnoses Not on filedocumented in this encounter"
--- OUTSIDE RECORDS SUMMARY | ~2019-09-06 | XMS | Encounter Summary ---
Demographics + + + | Address | [address] | | | [place] [address] | + + + | Home Phone [...] [place] | | | | | [address] | | + + + + + Care Team Providers + +------+ + | Care Kicking Machine Operator Name | Role | Phone [...] + + | 08/08/ | Telephone | [facility] | Ashley Chávez | Other (Questions | | 2019 | | [facility] | Pollo, Cat Hooker | about coverage. ) | | | | [address] | | | | | | [place] | | | | | | [address] | | | | | | [phone] | | | +--------+ + + + [...] | | | | | [place] | | | | | | [address] | | | | | | | | +--------+---------+ + + + documented as of this encounter Visit Diagnoses Not on filedocumented in this encounter"
--- OUTSIDE RECORDS SUMMARY | ~2019-09-06 | XMS | Encounter Summary ---
Demographics + + + | Address | [address] | | | [place] [address] | + + + | Home Phone [...] + | Araceli Sibley | ECON | [place], [place] | | | | | [address] | | + + + + + Care Team Providers + +------+ + | Care Storage Facility Housekeeper Name | Role | Phone | + +------+ + PCP | Unavailable | + +------+ + Encounter Details +--------+ + + + + | Date | Type | Department | Care Team | Description | +--------+ + + + + | 09/23/ | Hospital | [facility] | | | | 1994 | Encounter | MED CTR LABORATORY | | | | | | [address] | | | | | | [place] | | | | | | [address] | | | | | | [phone] | | | +--------+ + + + [...] | | | | | [place] | | | | | | [address] | | | | | | | | +--------+---------+ + + + documented as of this encounter Visit Diagnoses Not on filedocumented in this encounter"
--- OUTSIDE RECORDS SUMMARY | ~2019-09-06 | XMS | Encounter Summary ---
Demographics + + + | Address | [address] | | | [place] [address] | + + + | Home Phone [...] [place] | | | | | [address] | | + + + + + Care Team Providers + +------+ + | Care Forms Examiner Name | Role | Phone | [...] + + | 07/01/ | Telephone | [facility] | Frandy Teresa, | Other (Surgery ) | | 2013 | | NEUROSURGERY [address] | DO [address] | | | | | [address] | [address] [place], [place] | | | | | [place], [place] | [address] | | | | | [address] | | | | | | [phone] | | | +--------+ + + + [...] [place] | | | | | | [address] | | | | | | | | +--------+---------+ + + + documented as of this encounter Visit Diagnoses Not on filedocumented in this encounter"
--- OUTSIDE RECORDS SUMMARY | ~2019-09-06 | XMS | Encounter Summary ---
Demographics + + + | Address | [address] | | | [place] [address] | + + + | Home Phone [...] [place], [place] | | | | | [address] | | + + + + + Care Team Providers + +------+ + | Care Scorer Single Name | Role | Phone | + +------+ + PCP | Unavailable | + +------+ + Encounter Details +--------+ + + + + | Date | Type | Department | Care Team | Description | +--------+ + + + + | 04/01/ | Hospital | [facility] | | | | 1998 | Encounter | MED CTR XRAY [address] | | | | | | [address] | | | | | | [place] [address] | | | | | | [phone] | | | +--------+ + + + [...] | | | | | [place] | | | | | | [address] | | | | | | | | +--------+---------+ + + + documented as of this encounter Visit Diagnoses Not on filedocumented in this encounter"
--- OUTSIDE RECORDS SUMMARY | ~2019-09-06 | XMS | Encounter Summary ---
Demographics + + + | Address | [address] | | | [place] [address] | + + + | Home Phone [...] [place] | | | | | [address] | | + + + + + Care Team Providers + +------+ + | Care Engineer Booster And Exhauster Name | Role | Phone | + [...] [place] | | | | | | [address] | | | | | | [phone] | | | +--------+ + + + [...] [place] | | | | | | [address] | | | | | | | | +--------+---------+ + + + documented as of this encounter Visit Diagnoses Not on filedocumented in this encounter"
--- OUTSIDE RECORDS SUMMARY | ~2019-09-06 | XMS | Encounter Summary ---
Demographics + + + | Address | [address] | | | [place] [address] | + + + | Home Phone [...] [place] | | | | | [address] | | + + + + + Care Team Providers + +------+ + | Care Commercial Service Technician Name | Role | Phone | + +------+ + | Natalee Andersen NP | PCP | | + +------+ + Encounter Details +--------+ + + + + | Date | Type | Department | Care Team | Description | +--------+ + + + + | 06/25/ | Hospital | [facility] | Frandy Teresa, | Diabetes mellitus | | 2014 | Encounter | MED CTR OR INTRA OP | DO [address] | (HCC) (Primary Dx) | | | | [address] | [address] [place], [place] | | | | | [place], [place] | [address] | | | | | [address] | | | | | | [phone] | | | +--------+ + + + [...] + + + +---------+ + + | [place]-3 Fatty | Take 1,000 mg by | [...] [place] | | | | | | [id number] | | | | | | | [...] mL/min/1.73m2 | [facility] | | | [facility] | RATE,ESTIMATED | | MEDICAL | | | | mL/min/1.27m8Awxp than | | CENTER - | | [...] + | [facility] | [address] | [place], [place] | [phone] | | [facility] | | [address] | | | - LABORATORY | | | | + + + + + | [facility] | [address] | [place], [place] | | | [facility] | | [address] | | | - LABORATORY | | [...] + | [facility] | [address] | [place] | [phone] | | [facility] | | [address] | | | - LABORATORY | | | | + + + + + | [facility] | [address] | [place], [place] | | | [facility] | | [address] | | | - LABORATORY | | [...] [address] | [place] | [phone] | | [facility] | | [address] | | | - LABORATORY | | | | + + + + + | [facility] | [address] | [place] | | | [facility] | | [address] | | | - LABORATORY | | [...] St | [place] | | | [facility] | | [address] | | | - BLOOD BANK | [...] | + + + + + | [facility] | [address] | [place] | [phone] | | [facility] | | [address] | | | - LABORATORY | | | | + + + + + | [facility] | [address] | [place], [place] | | | [facility] | | [address] | | | - LABORATORY | | [...]
--- OUTSIDE RECORDS SUMMARY | ~2019-09-06 | XMS | Encounter Summary ---
Demographics + + + | Address | [address] | | | [place] [address] | + + + | Home Phone [...] [place] | | | | | [address] | | + + + + + Care Team Providers + +------+ + | Care Table Filler Name | Role | Phone | [...] | | | spondylolist | | [address] | | | | | hesis | | [place], | | | | | Spinal | | [place] [address] | | | | | stenosis, | | Phone: | | | | | lumbar | | [phone] | | | | | region, | | Fax: | | | | | without | | [phone] | | | | | neurogenic | [...] + | 07/02/ | Hospital | [facility] | Frandy Teresa, | Degenerative disc | | 2013 - | Encounter | MED CTR SURGICAL | DO [address] | disease, lumbar | | | | [address] | [address] [place] | (Primary Dx); | | 07/05/ | | [place] [address] | [phone] | Diabetes mellitus | | 2013 | | [phone] | | ([facility]); Disturbance | | | | [...] Stable for discharge to SNF. DIS[facility] DISCHARGE MEDICATIONS Medications prior to [...] Take 15 mg by mouth nightl y. [place]-3 Fatty Acids (FISH OIL CONCENTRATE) 1000 MG [...] + + + +---------+ + + | [place]-3 Fatty | Take 1,000 mg by | [...] plan: SNF versus home with [facility] any time. Maria T Storm RN - 07/04/2014 6:56 PM PDTFoley cath dc'd and MARI drain dc'd no problems. Chris Lynn PA-C - 07/04/2014 7:43 AM PDT [facility] PROGRESS NOTE Pt. Name/Age/: Cindy Arndt 58 y.o. 1955 Med. Record Number: [id number] Date of admission: 07/02/2014 Subjective: The patient [...] home medications. D/C plan: Home tomorrow with [facility]. D/c mari drain and riley cath today. D/c program director group work. Patient Active Problem List Diagnosis LUMBAR DISC [...] signed by: Chris Nicole, 07/04/2014 7:45 [facility] Chris Lynn PA-C - 07/03/2014 7:13 AM PDT . [facility] PROGRESS NOTE Pt. Name/Age/: Cindy Arndt 58 y.o. 1955 Med. Record Number: [id number] Date of admission: 07/02/2014 Subjective: The patient [...] Electronically signed by: Chris Nicole, 07/03/2014 7:13 [facility] Ton Menjivar, KRIS - 07/03/2014 6:50 AM [...] [place] | | | | | | [address] | | | | | | | [...] + | [facility] | [address] | [place], [place] | [phone] | | [facility] | | [address] | | | - LABORATORY | | | | + + + + + | [facility] | [address] | [place], [place] | | | [facility] | | [address] | | | - LABORATORY | | [...] + | [facility] | [address] | [place] | [phone] | | [facility] | | [address] | | | - LABORATORY | | | | + + + + + | [facility] | [address] | [place] | | | [facility] | | [address] | | | - LABORATORY | | [...] + | [facility] | [address] | [place] | [phone] | | [facility] | | [address] | | | - LABORATORY | | | | + + + + + | [facility] | [address] | [place] | | | [facility] | | [address] | | | - LABORATORY | | [...] + | [facility] | [address] | [place], [place] | [phone] | | [facility] | | [address] | | | - LABORATORY | | | | + + + + + | [facility] | [address] | [place], [place] | | | [facility] | | [address] | | | - LABORATORY | | [...] + | [facility] | [address] | [place] | [phone] | | [facility] | | [address] | | | - LABORATORY | | | | + + + + + | [facility] | [address] | [place] | | | [facility] | | [address] | | | - LABORATORY | | [...] + | [facility] | [address] | [place] | [phone] | | [facility] | | [address] | | | - LABORATORY | | | | + + + + + | [facility] | [address] | [place] | | | [facility] | | [address] | | | - LABORATORY | | [...] [address] | [place] | [phone] | | [facility] | | [address] | | | - LABORATORY | | | | + + + + + | [facility] | [address] | [place] | | | [facility] | | [address] | | | - LABORATORY | | [...] + | [facility] | [address] | [place], [place] | [phone] | | [facility] | | [address] | | | - LABORATORY | | | | + + + + + | [facility] | [address] | [place], [place] | | | [facility] | | [address] | | | - LABORATORY | | [...] [address] | [place] | [phone] | | [facility] | | [address] | | | - LABORATORY | | | | + + + + + | [facility] | [address] | [place], [place] | | | [facility] | | [address] | | | - LABORATORY | | [...] | of hardware for posterior fusion from Q3itaobpl S1 with interbody hardware at L5-S1. The [...] + + | Performing | Address | City/State/[facility] | Phone Number | | Organization | | | | + +---------+ + + | MISCELLANEOUS LAB | | | [phone] | + +---------+ + + | MISCELANIOUS LAB | | | [phone] | + +---------+ + + POC Glucose [...] + | [facility] | [address] | [place], [place] | [phone] | | [facility] | | [address] | | | - LABORATORY | | | | + + + + + | [facility] | [address] | [place], [place] | | | [facility] | | [address] | | | - LABORATORY | | [...] + | [facility] | [address] | [place] | [phone] | | [facility] | | [address] | | | - LABORATORY | | | | + + + + + | [facility] | [address] | [place] | | | [facility] | | [address] | | | - LABORATORY | | [...] | | | POC | | | [facility] | | | | | | [...] + | [facility] | [address] | [place] | [phone] | | [facility] | | [address] | | | - LABORATORY | | | | + + + + + | [facility] | [address] | [place] | | | [facility] | | [address] | | | - LABORATORY | | [...] + | [facility] | [address] | [place], [place] | [phone] | | [facility] | | [address] | | | - LABORATORY | | | | + + + + + | [facility] | [address] | [place] | | | [facility] | | [address] | | | - LABORATORY | | [...] + | [facility] | [address] | [place] | [phone] | | [facility] | | [address] | | | - LABORATORY | | | | + + + + + | [facility] | [address] | [place] | | | [facility] | | [address] | | | - LABORATORY | | [...] | [facility] | | [address] | | | - BLOOD BANK | [...] + +---------+ +---+---+---+ | morphine 5 mg/mL OPTICAL DESIGNER syringe | New Bag | 07/02/20 | [...] | | | | Dose(mg): 0, Starting OPTICAL DESIGNER | | | | | | | Dose(mg): 1, Incremental Increase | | | | | | | OPTICAL DESIGNER Dose(mg): 0.5, Maximum OPTICAL DESIGNER | | | | | | | [...]
--- OUTSIDE RECORDS SUMMARY | ~2019-09-06 | XMS | Encounter Summary ---
Demographics + + + | Address | [address] | | | [place] [address] | + + + | Home Phone [...] [place] | | | | | [address] | | + + + + + Care Team Providers + +------+ + | Care Elementary [employer] Professional Name | Role | Phone | [...] [address] | [address] [place], [place] | (Primary Dx) | | | | [place], [place] | [address] | | | | | [address] | | | | | | [phone] | | | +--------+ + + + [...] [place] | | | | | | [address] | | | | | | | [...] + | MISCELLANEOUS LAB | | | [phone] | + +---------+ + + | MISCELANIOUS LAB | | | [phone] | + +---------+ + + documented in this encounter Visit Diagnoses + + | Diagnosis | + + | Status post lumbar spinal fusion - Primary Arthrodesis status | + + documented in this encounter"
--- OUTSIDE RECORDS SUMMARY | ~2019-09-06 | XMS | Encounter Summary ---
Demographics + + + | Address | [address] | | | [place] [address] | + + + | Home Phone [...] [place] | | | | | [address] | | + + + + + Care Team Providers + +------+ + | Care Continuous Drier Helper Name | Role | Phone | [...] | spinal fusion | | | | [place] | [address] [place], [place] | | | | | [place] [address] | [address] | | | | | [phone] | | | +--------+ + + + [...] + + + +---------+ + + | [place]-3 Fatty | Take 1,000 mg by | [...] [place] | | | | | | [address] | | | | | | | [...] + | MISCELLANEOUS LAB | | | [phone] | + +---------+ + + | MISCELANIOUS LAB | | | [phone] | + +---------+ + + documented in this encounter Visit Diagnoses + + | Diagnosis | + + | Status post lumbar spinal fusion Arthrodesis status | + + documented in this encounter"
--- OUTSIDE RECORDS SUMMARY | ~2019-09-06 | XMS | Encounter Summary ---
Demographics + + + | Address | [address] | | | [place] [address] | + + + | Home Phone [...] + + + | Author | [facility] | + + + | Organization | [facility] | + + + | Address | Unknown | + + + | Phone | Unavailable | + + + Support + + + + + | Name | Relationship | Address | Phone | + + + + + | Kelsy Bautista | ECON | [address] | | | | | [place] | | | | | [address] | | + + + + + Care Team Providers + +------+ + | Care Glass Artist Name | Role | Phone | [...] [id number] | | | | | | [place], [place] | | | | | | [address] | | | | | | [phone] | | | +--------+ + + + [...] | + + + + + | [facility] | [address] | [place] [address] | | | PATHOLOGY | [address] [...] Re | | | | | | [id number] | | | | + + + + + + + + | Specimen | + + | | + + + + + + + | Performing | Address | City/State/Zipcode | Phone Number | | Organization | | | | + + + + + | [facility] | [address] | [place] [address] | | | PATHOLOGY | [address] [...] Re | | | | | | [phone] | | | | + + + + + + + + | Specimen | + + | | + + + + + + + | Performing | Address | City/State/Zipcode | Phone Number | | Organization | | | | + + + + + | [facility] | [address] | [place] [address] | | | PATHOLOGY | [address] [...] Re | | | | | | [phone] | | | | + + + + + + + + | Specimen | + + | | + + + + + + + | Performing | Address | City/State/Zipcode | Phone Number | | Organization | | | | + + + + + | [facility] | [address] | [place] [address] | | | PATHOLOGY | [address] [...] Re | | | | | | [phone] | | | | + + + + + + + + | Specimen | + + | | + + + + + + + | Performing | Address | City/State/Zipcode | Phone Number | | Organization | | | | + + + + + | [facility] | [address] | [place] [address] | | | PATHOLOGY | [address] | | | + + + + + documented in this encounter Visit Diagnoses Not on filedocumented in this encounter"
--- OUTSIDE RECORDS SUMMARY | ~2019-09-06 | XMS | Encounter Summary ---
Demographics + + + | Address | [address] | | | [place] [address] | + + + | Home Phone [...] [place], [place] | | | | | [address] | | + + + + + Care Team Providers + +------+ + | Care Guide Foreign Tour Name | Role | Phone | + +------+ + PCP | Unavailable | + +------+ + Encounter Details +--------+ + + + + | Date | Type | Department | Care Team | Description | +--------+ + + + + | 04/16/ | Hospital | [facility] | | | | 1997 | Encounter | MED CTR XRAY [address] | | | | | | [address] | | | | | | [place] [address] | | | | | | [phone] | | | +--------+ + + + [...] | | | | | [place] | | | | | | [address] | | | | | | | | +--------+---------+ + + + documented as of this encounter Visit Diagnoses Not on filedocumented in this encounter"
--- OUTSIDE RECORDS SUMMARY | ~2019-09-06 | XMS | Encounter Summary ---
Demographics + + + | Address | [address] | | | [place] [address] | + + + | Home Phone [...] [place] | | | | | [address] | | + + + + + Care Team Providers + +------+ + | Care Commercial Sales Consultant Name | Role | Phone | + +------+ + | Basim Bolanos MD | PCP | | + +------+ + Encounter Details +--------+ + + + + | Date | Type | Department | Care Team | Description | +--------+ + + + + | 02/22/ | Abstract | [facility] [place] | [facility], | | | 2012 | | GASTROENTEROLOGY | FORTUNATO Thomas [address] | | | | | [address] [place] | [place], [address] | | | | | [address] [employer], [place] | [place], [place] | | | | | [address] | [address] | | | | | [phone] | | | +--------+ + + + [...] [place] | | | | | | [address] | | | | | | | | +--------+---------+ + + + documented as of this encounter Visit Diagnoses Not on filedocumented in this encounter"
--- OUTSIDE RECORDS SUMMARY | ~2019-09-06 | XMS | Encounter Summary ---
Demographics + + + | Address | [address] | | | [place] [address] | + + + | Home Phone [...] [place], [place] | | | | | [address] | | + + + + + Care Team Providers + +------+ + | Care Head Bucker Name | Role | Phone | + +------+ + PCP | Unavailable | + +------+ + Encounter Details +--------+ + + + + | Date | Type | Department | Care Team | Description | +--------+ + + + + | 02/02/ | Hospital | [facility] | Serafin Bautista | | | 2012 | Encounter | MED CTR XRAY [address] | T, MD [address] | | | | | [place] | ST [place], [place] | | | | | [place] [address] | [address] | | | | | [phone] | | | +--------+ + + + [...] [place] | | | | | | [address] | | | | | | | [...] | [facility] Imaging Department | [facility] | | [address] [facility] | [facility] | | PROCEDURE: EPIDURAL STEROID [...] Transcribed Date/Time: | | | 02/03/2012 18:45 Campus Administrative Assistant: <Electronically Signed | | | by Serafin Bautista MD> 02/14/12 0916 | | + + + + + | Procedure Note | + + | Juan, Rad Conversion - 11/30/2013 5:06 PM [facility] | | Diagnostic Imaging Department | | [address] [facility] | | | | [...] | Transcribed Date/Time: 02/03/2012 18:45 | | Campus Administrative Assistant: LaMAHIN | | <Electronically Signed by Serafin [...]
--- OUTSIDE RECORDS SUMMARY | ~2019-09-06 | XMS | Encounter Summary ---
Demographics + + + | Address | [address] | | | [place] [address] | + + + | Home Phone [...] [place] | | | | | [address] | | + + + + + Care Team Providers + +------+ + | Care Gut Carrier Name | Role | Phone | + [...] + + | 03/03/ | Telephone | [facility] | Baudilio Newman | Other (Results) | | 2014 | | NEUROLOGY LAURIE | MD Pollo Need updated | | | | | [address], | address | | | | | [address] [place] | | | | | | [place] [address] | | | | | | [phone] | | | +--------+ + + + [...] [place] | | | | | | [address] | | | | | | | | +--------+---------+ + + + documented as of this encounter Visit Diagnoses Not on filedocumented in this encounter"
--- OUTSIDE RECORDS SUMMARY | ~2019-09-06 | XMS | Encounter Summary ---
Demographics + + + | Address | [address] | | | [place] [address] | + + + | Home Phone [...] [place] | | | | | [address] | | + + + + + Care Team Providers + +------+ + | Care Bilingual Teacher Aide Name | Role | Phone | + +------+ + | Natalee Andersen NP | PCP | | + +------+ + Encounter Details +--------+ + + + + | Date | Type | Department | Care Team | Description | +--------+ + + + + | 05/02/ | Hospital | [facility] | Frandy Teresa, | Back pain | | 2014 | Encounter | MED CTR XRAY [address] | DO [address] | | | | | [place] | [place] [address] [place] | | | | | [place] [address] | [address] | | | | | [phone] | | | +--------+ + + + [...] + + + +---------+ + + | [place]-3 Fatty | Take 1,000 mg by | [...] | | | | | [place] | | | | | | [address] | | | | | | | [...] + | MISCELLANEOUS LAB | | | [phone] | + +---------+ + + | MISCELANIOUS LAB | | | [phone] | + +---------+ + + documented in this encounter Visit Diagnoses + + | Diagnosis | + + | Back pain Backache, unspecified | + + documented in this encounter"
--- OUTSIDE RECORDS SUMMARY | ~2019-09-06 | XMS | Encounter Summary ---
Demographics + + + | Address | [address] | | | [place] [address] | + + + | Home Phone [...] [place] | | | | | [address] | | + + + + + Care Team Providers + +------+ + | Care Mechanical Energy Engineer Name | Role | Phone | + +------+ + | Natalee Andersen NP | PCP | | + +------+ + Encounter Details +--------+ + + + + | Date | Type | Department | Care Team | Description | +--------+ + + + + | 06/25/ | Hospital | [facility] | Latricia Feliciano | | | 2014 | Encounter | MED CTR ACUTE | D, PT [address] | | | | | PHYSICAL THERAPY | [place]FTALIE [place] | | | | | [address] | [address] | | | | | [place] [address] | | | | | | [phone] | | | +--------+ + + + [...] + + + +---------+ + + | [place]-3 Fatty | Take 1,000 mg by | [...] [place] | | | | | | [address] | | | | | | | | +--------+---------+ + + + documented as of this encounter Visit Diagnoses Not on filedocumented in this encounter"
--- OUTSIDE RECORDS SUMMARY | ~2019-09-06 | XMS | Encounter Summary ---
Demographics + + + | Address | [address] | | | [place] [address] | + + + | Home Phone [...] + + + | Author | [facility] | + + + | Organization | [facility] | + + + | Address | Unknown | + + + | Phone | Unavailable | + + + Support + + + + + | Name | Relationship | Address | Phone | + + + + + | Kelsy Bautista | ECON | [address] | | | | | [place] | | | | | [address] | | + + + + + Care Team Providers + +------+ + | Care Calender Wind Up Helper Name | Role | Phone | [...] | | | | | | [place] | | | | | | [place] [address] | | | | | | [phone] | | | +--------+ + + + [...] | | + +---------+ + + | [facility] DEPARTMENT OF | | | | | RADIOLOGY | | | | + +---------+ + + documented in this encounter Visit Diagnoses Not on filedocumented in this encounter"
--- OUTSIDE RECORDS SUMMARY | ~2019-09-06 | XMS | Encounter Summary ---
Demographics + + + | Address | [address] | | | [place] [address] | + + + | Home Phone [...] [place], [place] | | | | | [address] | | + + + + + Care Team Providers + +------+ + | Care Industrial Gas Fitter Name | Role | Phone | + +------+ + PCP | Unavailable | + +------+ + Encounter Details +--------+ + + + + | Date | Type | Department | Care Team | Description | +--------+ + + + + | 06/07/ | Hospital | [facility] | | | | 1991 - | Encounter | MED CTR GENERIC OP | | | | | | CONV DEPT [address] | | | | 10/07/ | | [place], | | | | 1991 | | [place] [address] | | | | | | [phone] | | | +--------+ + + + [...] [place] | | | | | | [address] | | | | | | | | +--------+---------+ + + + documented as of this encounter Visit Diagnoses Not on filedocumented in this encounter"
--- OUTSIDE RECORDS SUMMARY | ~2019-09-06 | XMS | Encounter Summary ---
Demographics + + + | Address | [address] | | | [place] [address] | + + + | Home Phone [...] [place] | | | | | [address] | | + + + + + Care Team Providers + +------+ + | Care Human Resources Assistant Manager Name | Role | Phone | + +------+ + | Natalee Andersen NP | PCP | | + +------+ + Encounter Details +--------+ + + + + | Date | Type | Department | Care Team | Description | +--------+ + + + + | 07/25/ | Hospital | [facility] | Frandy Teresa, | Status post lumbar | | 2014 | Encounter | MED CTR XRAY [address] | DO [address] | spinal fusion | | | | [place] | [address] [place], [place] | | | | | [place] [address] | [address] | | | | | [phone] | | | +--------+ + + + [...] + + + +---------+ + + | [place]-3 Fatty | Take 1,000 mg by | [...] [place] | | | | | | [address] | | | | | | | [...] + | MISCELLANEOUS LAB | | | [phone] | + +---------+ + + | MISCELANIOUS LAB | | | [phone] | + +---------+ + + documented in this encounter Visit Diagnoses + + | Diagnosis | + + | Status post lumbar spinal fusion Arthrodesis status | + + documented in this encounter"
--- OUTSIDE RECORDS SUMMARY | ~2019-09-06 | XMS | Encounter Summary ---
Demographics + + + | Address | [address] | | | [place] [address] | + + + | Home Phone [...] [place] | | | | | [address] | | + + + + + Care Team Providers + +------+ + | Care Vocational Education Teacher Name | Role | Phone [...] + + | 01/02/ | Telephone | [facility] | Frandy Teresa, | Other (6m x-ray ) | | 2014 | | NEUROSURGERY [address] | DO [address] | | | | | [address] [place] [address] | [address] [place], [place] | | | | | [place], [place] | [id number] | | | | | [address] | | | | | | [phone] | | | +--------+ + + + [...] [place] | | | | | | [address] | | | | | | | | +--------+---------+ + + + documented as of this encounter Visit Diagnoses Not on filedocumented in this encounter"
--- OUTSIDE RECORDS SUMMARY | ~2019-09-06 | XMS | Encounter Summary ---
Demographics + + + | Address | [address] | | | [place] [address] | + + + | Home Phone [...] [place], [place] | | | | | [address] | | + + + + + Care Team Providers + +------+ + | Care Knockout Man Name | Role | Phone | + +------+ + PCP | Unavailable | + +------+ + Encounter Details +--------+ + + + + | Date | Type | Department | Care Team | Description | +--------+ + + + + | 06/07/ | Hospital | [facility] | | | | 1991 - | Encounter | MED CTR GENERIC OP | | | | | | CONV DEPT [address] | | | | 10/07/ | | [place], | | | | 1991 | | [place] [address] | | | | | | [phone] | | | +--------+ + + + [...] [place] | | | | | | [address] | | | | | | | | +--------+---------+ + + + documented as of this encounter Visit Diagnoses Not on filedocumented in this encounter"
--- OUTSIDE RECORDS SUMMARY | ~2019-09-06 | XMS | Encounter Summary ---
Demographics + + + | Address | [address] | | | [place] [address] | + + + | Home Phone [...] [place] | | | | | [address] | | + + + + + Care Team Providers + +------+ + | Care Benefits Consultant Name | Role | Phone | [...] | | | | | mellitus, | [address] | [place] | | | | | controlled | Phone: | [address] | | | | | (HCC) | [phone] | Phone: | | | | | History of | Fax: | [phone] | | | | | gastric | [phone] | Fax: | | | | | restrictive | | [phone] | | | | | surgery | [...] | | | y Type 2 | [address] | [place] | | | | | diabetes | Phone: | [address] | | | | | mellitus, | [phone] | Phone: | | | | | controlled | Fax: | [phone] | | | | | (HCC) | [phone] | Fax: | | | | | Obesity, | | [phone] | | | | | Class III, [...] | | FORTUNATO & Katharine BUCIO in [place]. | + + + | Other | [...] + | 03/06/ | Office | [facility] | Katharine Cardona PA-C | Hypothyroidism due | | 2014 | Visit | MEDICINE [address] | [address] [facility] | to acquired atrophy | | | | [place] | [place] [address] | of thyroid (Primary | | | | [place] [address] | [phone] | Dx); Essential | | | | [phone] | | hypertension; Iron | | | [...] Stroke | | | | | | ([facility]); Environmental | | | | [...] | | | | obesity) ([facility]); | | | | | | Type 2 diabetes | | | | | | mellitus, controlled | | | | | | ([facility]); Preventative | | | | [...] t be different from the original. Ask [facility] ([facility]) if they think it might be helpful [...] Cont your meds as prescribed. F/U with [facility] ([facility]) as scheduled Neuropathy Continue gabapentin. May consider increase if pain is not controlled. May benefit from switching from Paxil to one of the SNRIs or TCAs for analgesic effects, holly manju, she is doing so well on her current regimen it may not be worth making any changes an d find alternate ways to deal with the pain. Would be worth discussing with [facility] ([facility]) Psych Back Pain Will refer to water therapy (aqua fitness) at [facility] as request ed. ROGERS on [...] Colonoscopy procedures 4. Schizoaffective disorder, bipolar type ([facility]) 5. Neuropathy Vitamin B-12 6. BACK PAIN, LUMBAR, WITH RADICULOPATHY Ambulatory referral to Physical Therapy 7. ROGERS on CPAP 8. Stroke ([facility]) 9. Environmental and seasonal allergies fluticasone (FLONASE) 50 mcg/nasal spray 10. Gastroesophageal reflux disease without esophagitis dexlansoprazole (DEXILANT) 60 mg D R capsule 11. History of gastric restrictive surgery Vitamin D, 25-Hydroxy Nutrition Services - External - AMB Referral 12. Obesity, Class III, BMI 40-49.9 (morbid obesity) ([facility]) Ambulatory referral to Physical Therapy Nutrition Services - External - AMB Referral 13. Type 2 diabetes mellitus, controlled ([facility]) Ambulatory referral to Physical Therapy [...] Cont your meds as prescribed. F/U with [facility] ([facility]) as scheduled Neuropathy Continue gabapentin. May consider [...] the pain. Would be worth discussing with [facility] ([facility]) professional. Back Pain Will refer to water therapy (aqua fitness) at [facility] as request ed. Cont home exercise, [...] plan. The above note was dictated using [employer] voice recognition software. It may have not been proofread in entirety. Minor errors in grammar may occur. CHIEF COMPLAINT Chief Complaint Patient presents with Establish Care Presents to establish care. Former patient of [facility] in [place]. Other Possible stroke January 2015. Is now [...] auditory, at 36. 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 She is now very well controlled on Saphris, Depakote, and Paxi l. She is followed by [facility] in [place]. She has DM2 that is well controlled [...] worked up by steve rowe, Dr [place], [place]. More recently, she presented to ED with [...] Laterality: N/A; Surgeon: Frandy castellanos DO; Location: [facility] MAIN OR SOCIAL HISTORY History Social [...] mg by mouth Daily. Cholecalciferol (VITAMIN D-3) 50133 units CAPS Oral Take 50,000 Units by [...] Oral Take 10 mg by mouth nightly. [place]-3 Fatty Acids (FISH OIL CONCENTRATE) 1000 MG [...] [place] | | | | | | [address] | | | | | | | [...] | | | | | | controlled ([facility]) | | | | | | Obesity, Class III, | | | | | | BMI 40-49.9 (morbid | | | | | | obesity) ([facility]) | | + + +--------+ + + | Nutrition Services - | Outpatient | Routin | Iron deficiency | Ordered: 03/06/2015 | | External - AMB | Referral | e | anemia Type 2 | | | Referral | | | diabetes mellitus, | | | | | | controlled ([facility]) | | | | | | History of gastric | | | | | | restrictive surgery | | | | | | Obesity, Class III, | | | | | | BMI 40-49.9 (morbid | | | | | | obesity) ([facility]) | | + + +--------+ [...] 12 | 7 - 18 mg/dL | [facility] | | | | | | [facility] | | | | | | MEDICAL | | | | | | CENTER - | | | | | | LABORATORY | | + + + + + + | Creatinine | 0.66 | 0.60 - 1.30 | [facility] | | | | | mg/dL | [facility] | | | | | | MEDICAL | | | | | | CENTER - | | | | | | LABORATORY | | + + + + + + | eGFR if not | >60Comment: GLOMERULAR | >=60 | [facility] | | | | FILTRATION | mL/min/1.73m2 | [facility] | | | QATARI | RATE,ESTIMATED | | MEDICAL | | | | mL/min/1.53d7Vivw than | | CENTER - | | [...] [address] | [place] | [phone] | | [facility] | | [address] | | | - LABORATORY | | [...] + | Type 2 diabetes mellitus, controlled ([facility]) Type II or unspecified type diabetes | | mellitus without mention of complication, not stated as uncontrolled | + + | Preventative health care Routine general medical examination at a health care | | facility | + + documented in this encounter
--- OUTSIDE RECORDS SUMMARY | ~2019-09-06 | XMS | Encounter Summary ---
Demographics + + + | Address | [address] | | | [place] [address] | + + + | Home Phone [...] [place], [place] | | | | | [address] | | + + + + + Care Team Providers + +------+ + | Care Production Assembler Name | Role | Phone | + +------+ + PCP | Unavailable | + +------+ + Encounter Details +--------+ + + + + | Date | Type | Department | Care Team | Description | +--------+ + + + + | 04/01/ | Hospital | [facility] | | | | 1998 | Encounter | MED CTR XRAY [address] | | | | | | [place] | | | | | | [place] [address] | | | | | | [phone] | | | +--------+ + + + [...] | | | | | [place] | | | | | | [address] | | | | | | | | +--------+---------+ + + + documented as of this encounter Visit Diagnoses Not on filedocumented in this encounter"
--- OUTSIDE RECORDS SUMMARY | ~2019-09-06 | XMS | Encounter Summary ---
Demographics + + + | Address | [address] | | | [place] [address] | + + + | Home Phone [...] [place] | | | | | [address] | | + + + + + Care Team Providers + +------+ + | Care Supervisor Weaving Name | Role | Phone | + [...] + | 03/26/ | Telephone | [facility] | Thierry Fry | Medication Prior | | 2015 | | MEDICINE [facility] Daniel | MD Lisa [address] | Authorization | | | | [facility] | [facility] | (Dexilant 60Mg) | | | | [place] [address] | [address] | | | | | [phone] | | | +--------+ + + + [...] [place] | | | | | | [address] | | | | | | | | +--------+---------+ + + + documented as of this encounter Visit Diagnoses Not on filedocumented in this encounter"
--- OUTSIDE RECORDS SUMMARY | ~2019-09-06 | XMS | Encounter Summary ---
Demographics + + + | Address | [address] | | | [place] [address] | + + + | Home Phone [...] [place] | | | | | [address] | | + + + + + Care Team Providers + +------+ + | Care Greenkeeper Name | Role | Phone | + [...] + + | 08/28/ | Telephone | [facility] | Ashley Chávez | Other (Patient has | | 2019 | | CARDIOLOGY GENESIS Abad, Sql Programmer | questions about | | | | [address] | | monitor. ) | | | | [place] | | | | | | [address] | | | | | | [phone] | | | +--------+ + + + [...] [place] | | | | | | [address] | | | | | | | | +--------+---------+ + + + documented as of this encounter Visit Diagnoses Not on filedocumented in this encounter"
--- OUTSIDE RECORDS SUMMARY | ~2019-09-06 | XMS | Encounter Summary ---
Demographics + + + | Address | [address] | | | [place] [address] | + + + | Home Phone [...] [place] | | | | | [address] | | + + + + + Care Team Providers + +------+ + | Care Grizzlyman Name | Role | Phone | + [...] | | | | [address] [place] | [place] [address] | | | | | [place] [address] | [phone] | | | | | [phone] | | | +--------+--------+ + + + [...] [place] | | | | | | [address] | | | | | | | | +--------+---------+ + + + documented as of this encounter Visit Diagnoses + + | Diagnosis | + + | Essential hypertension - Primary Unspecified essential hypertension | + + documented in this encounter"
--- OUTSIDE RECORDS SUMMARY | ~2019-09-06 | XMS | Encounter Summary ---
Demographics + + + | Address | [address] | | | [place] [address] | + + + | Home Phone [...] [place], [place] | | | | | [address] | | + + + + + Care Team Providers + +------+ + | Care Taxi Proprietor Name | Role | Phone | + +------+ + PCP | Unavailable | + +------+ + Encounter Details +--------+ + + + + | Date | Type | Department | Care Team | Description | +--------+ + + + + | 09/24/ | Hospital | [facility] | | | | 1993 | Encounter | MED CTR LABORATORY | | | | | | [address] | | | | | | [place] | | | | | | [address] | | | | | | [phone] | | | +--------+ + + + [...] | | | | | [place] | | | | | | [address] | | | | | | | | +--------+---------+ + + + documented as of this encounter Visit Diagnoses Not on filedocumented in this encounter"
--- OUTSIDE RECORDS SUMMARY | ~2019-09-06 | XMS | Encounter Summary ---
Demographics + + + | Address | [address] | | | [place] [address] | + + + | Home Phone [...] [place] | | | | | [address] | | + + + + + Care Team Providers + +------+ + | Care Forklift Picker Name | Role | Phone | [...] | | | | | [address] | [place], [place] | | | | | [place], [place] | [address] | | | | | [address] | | | | | | [phone] | | | +--------+ + + + [...] [place] | | | | | | [address] | | | | | | | | +--------+---------+ + + + documented as of this encounter Visit Diagnoses Not on filedocumented in this encounter"
--- OUTSIDE RECORDS SUMMARY | ~2019-09-06 | XMS | Encounter Summary ---
Demographics + + + | Address | [address] | | | [place] [address] | + + + | Home Phone [...] [place] | | | | | [address] | | + + + + + Care Team Providers + +------+ + | Care Surgical Supply Assistant Name | Role | Phone | + +------+ + | Natalee Andersen NP | PCP | | + +------+ + Encounter Details +--------+ + + + + | Date | Type | Department | Care Team | Description | +--------+ + + + + | 06/25/ | Hospital | [facility] | Latricia Feliciano | | | 2014 | Encounter | MED CTR ACUTE | D, PT [address] | | | | | PHYSICAL THERAPY | NEFTALIE [place] PAIGE | | | | | [address] | [address] | | | | | [place] [address] | | | | | | [phone] | | | +--------+ + + + [...] + + + +---------+ + + | [place]-3 Fatty | Take 1,000 mg by [...] [place] | | | | | | [address] | | | | | | | | +--------+---------+ + + + documented as of this encounter Visit Diagnoses Not on filedocumented in this encounter"
--- OUTSIDE RECORDS SUMMARY | ~2019-09-06 | XMS | Encounter Summary ---
Demographics + + + | Address | [address] | | | [place] [address] | + + + | Home Phone [...] [place], [place] | | | | | [address] | | + + + + + Care Team Providers + +------+ + | Care Airfield Manager Name | Role | Phone | + +------+ + PCP | Unavailable | + +------+ + Encounter Details +--------+ + + + + | Date | Type | Department | Care Team | Description | +--------+ + + + + | 06/30/ | Hospital | [facility] | | | | 1999 - | Encounter | MED CTR GENERIC PSY | | | | | | CONV DEPT [address] | | | | 07/05/ | | [place], | | | | 1999 | | [place] [address] | | | | | | [phone] | | | +--------+ + + + [...] [place] | | | | | | [address] | | | | | | | | +--------+---------+ + + + documented as of this encounter Visit Diagnoses Not on filedocumented in this encounter"
--- OUTSIDE RECORDS SUMMARY | ~2019-09-06 | XMS | Encounter Summary ---
Demographics + + + | Address | [address] | | | [place] [address] | + + + | Home Phone [...] [place] | | | | | [address] | | + + + + + Care Team Providers + +------+ + | Care Cotton Broker Name | Role | Phone | [...] + | 04/05/ | Telephone | [facility] [place] [facility], | Results | | 2012 | | GASTROENTEROLOGY | FORTUNATO Thomas [address] | | | | | [address] [place] | [place], [address] | | | | | [address] [place], [place] | [place], [place] | | | | | [address] | [address] | | | | | [phone] | | | +--------+ + + + [...] [place] | | | | | | [address] | | | | | | | | +--------+---------+ + + + documented as of this encounter Visit Diagnoses Not on filedocumented in this encounter"
--- OUTSIDE RECORDS SUMMARY | ~2019-09-06 | XMS | Encounter Summary ---
Demographics + + + | Address | [address] | | | [place] [address] | + + + | Home Phone [...] [place] | | | | | [address] | | + + + + + Care Team Providers + +------+ + | Care Travel Director Name | Role | Phone | [...] + + | 06/27/ | Office | [facility] | Yecenia Richardson, | Hypertension, | | 2019 | Visit | CARDIOLOGY [place] | MD Nitin RODRIGUES | unspecified type | | | | [address] | [place], [place] | (Primary Dx); | | | | KEV SCHAFER [facility] | [address] | Bradycardia | | | | [place] | | | | | | [address] | | | | | | [phone] | | | +--------+---------+ + + + [...] urgent basis. Had an appointment today in [facility]. She has been feeling dizzy as [...] Take by mouth. Blood Glucose Monitoring Suppl (Syniverse VERIO FLEX SYSTEM) w/Device KIT by Does [...] mg by mouth Daily. Cholecalciferol (VITAMIN D-3) 36097 units CAPS Take 50,000 Units by mouth [...] tablet Take 10 mg by mouth nightly. [place]-3 Fatty Acids (FISH OIL CONCENTRATE) 1000 MG [...] | | | | | | [place] [facility] [place] | | | | | | [address] | | | | | | | [...]
--- OUTSIDE RECORDS SUMMARY | ~2019-09-06 | XMS | Encounter Summary ---
Demographics + + + | Address | [address] | | | [place] [address] | + + + | Home Phone [...] [place] | | | | | [address] | | + + + + + Care Team Providers + +------+ + | Care On Site Coordinator Name | Role | Phone | [...] + + | 08/16/ | Documentati | [facility] | Katharine Moncada, | Other (urgent | | 2019 | on | CARDIOLOGY [place] | Technologist | report) | | | | [address] | | | | | | [place] | | | | | | [address] | | | | | | [phone] | | | +--------+ + + + [...] [place] | | | | | | [address] | | | | | | | | +--------+---------+ + + + documented as of this encounter Visit Diagnoses Not on filedocumented in this encounter"
--- OUTSIDE RECORDS SUMMARY | ~2019-09-06 | XMS | Encounter Summary ---
Demographics + + + | Address | [address] | | | [place] [address] | + + + | Home Phone [...] [place] | | | | | [address] | | + + + + + Care Team Providers + +------+ + | Care Spray Foam Installer Name | Role | Phone | [...] + + | 08/16/ | Documentati | [facility] | Katharine Moncada, | Other (urgent | | 2019 | on | CARDIOLOGY [place] | Technologist | report) | | | | [address] | | | | | | [place] | | | | | | [address] | | | | | | [phone] | | | +--------+ + + + [...] [place] | | | | | | [address] | | | | | | | | +--------+---------+ + + + documented as of this encounter Visit Diagnoses Not on filedocumented in this encounter"
--- OUTSIDE RECORDS SUMMARY | ~2019-09-06 | XMS | Encounter Summary ---
Demographics + + + | Address | [address] | | | [place] [address] | + + + | Home Phone [...] [place] | | | | | [address] | | + + + + + Care Team Providers + +------+ + | Care Mechanical Piping Designer Name | Role | Phone | [...] | Frandy Simons DO | [address] | | | | | of skin | [address] | [place], | | | | | sensation | [address] | [place] | | | | | Arthrodesis | [place], [place] | [address] | | | | | status Left | [address] | Phone: | | | | | leg | Phone: | [phone] | | | | | weakness | [phone] | Fax: | | | | | Procedures | Fax: | [phone] | | | | | MRI Lumbar | [phone] | | | | | | Spine [...] | Frandy Simons DO | [address] | | | | | of skin | [address] | [place], | | | | | sensation | [address] | [place] | | | | | Arthrodesis | [place] | [address] | | | | | status Left | [address] | Phone: | | | | | leg | Phone: | [phone] | | | | | weakness | [phone] | Fax: | | | | | Procedures | Fax: | [phone] | | | | | MRI Lumbar | [phone] | | | | | | Spine [...] spinal fusion; Left | | | | [address] [place], | [place] [place] | leg numbness; Left | | | | [place] [address] | [address] | leg weakness | | | | [phone] | | | +--------+ + + + [...] + + + +---------+ + + | [place]-3 Fatty | Take 1,000 mg by | [...] [place] | | | | | | [address] | | | | | | | [...] the round structure with high T1 and V0uxdfmn in the right L3 vertebral | | [...] + | MISCELLANEOUS LAB | | | [phone] | + +---------+ + + | MISCELANIOUS LAB | | | [phone] | + +---------+ + + documented in [...]
--- OUTSIDE RECORDS SUMMARY | ~2019-09-06 | XMS | Clinical Summary ---
Demographics + + + | Address | [address] | | | [place] [address] | + + + | Home Phone [...] | Author | [facility] (Historical as of | | | 06-09-19) | + + + | Organization | [facility] (Historical as of | | | [...] Providers + +------+ + | Care Vp Of Marketing Name | Role | Phone | [...] | | Activ | | (VITAMIN D3) [address] | a week. | | | | [...] T2DM (type 2 diabetes mellitus) ([facility]) | 04/13/2013 | + + + [...] +------+-------+ + | MEDICARE | MEDICA | [id number] | | | [address] | | | RE | | | | [place] [address] | | | IP-OP | | | [...] Self | [birth year] | Home: | [address] | | | al/Fam | | 1955 | [phone] | [address] [place] | | | [place]onte | | | [phone] | [phone] | + +--------+ +--------+ + +
--- OUTSIDE RECORDS SUMMARY | ~2019-09-06 | XMS | Encounter Summary ---
Demographics + + + | Address | [address] | | | [place] [address] | + + + | Home Phone [...] [place] | | | | | [address] | | + + + + + Care Team Providers + +------+ + | Care Stone Decorator Name | Role | Phone | [...] Closed | | Radiology | Diagnoses | [place], | | | | | | Thoracic or | Natalee L, | | | | | | lumbosacral | [address] | | | | | | neuritis or | [address] [place] | | | | | | | [address] | | | | | | radiculitis, | [place], | | | | | | unspecified | [place] [address] | | | | | | | Phone: | | | | | | Degeneration | [phone] | | | | | | of lumbar | Fax: | | | | | | or | [phone] | | | | | | lumbosacral [...] + + | 03/11/ | Hospital | [facility] | Natalee Andersen | Thoracic or | | 2013 | Encounter | MED CTR MRI [address] | L, [address] | lumbosacral neuritis | | | | [place], | [address] [place] | or radiculitis, | | | | [place] [address] | [place] [address] | unspecified; | | | | [phone] | [phone] | Degeneration of | | | | [...] + + + +---------+ + + | [place]-3 Fatty | Take 1,000 mg by | [...] [place] | | | | | | [address] | | | | | | | [...] + | MISCELLANEOUS LAB | | | [phone] | + +---------+ + + | MISCELANIOUS LAB | | | [phone] | + +---------+ + + documented in this encounter Visit Diagnoses + + | Diagnosis | + + | Thoracic or lumbosacral neuritis or radiculitis, unspecified | + + | Degeneration of lumbar or lumbosacral intervertebral disc | + + documented in this encounter"
--- OUTSIDE RECORDS SUMMARY | ~2019-09-06 | XMS | Encounter Summary ---
Demographics + + + | Address | [address] | | | [place] [address] | + + + | Home Phone [...] [place], [place] | | | | | [address] | | + + + + + Care Team Providers + +------+ + | Care Waterside Worker Name | Role | Phone | + +------+ + PCP | Unavailable | + +------+ + Encounter Details +--------+ + + + + | Date | Type | Department | Care Team | Description | +--------+ + + + + | 02/24/ | Hospital | [facility] | | | | 1997 - | Encounter | MED CTR GENERIC PSY | | | | | | CONV DEPT [address] | | | | 02/26/ | | [place], | | | | 1997 | | [place] [address] | | | | | | [phone] | | | +--------+ + + + [...] [place] | | | | | | [address] | | | | | | | | +--------+---------+ + + + documented as of this encounter Visit Diagnoses Not on filedocumented in this encounter"
--- OUTSIDE RECORDS SUMMARY | ~2019-09-06 | XMS | Encounter Summary ---
Demographics + + + | Address | [address] | | | [place] [address] | + + + | Home Phone [...] [place] | | | | | [address] | | + + + + + Care Team Providers + +------+ + | Care Oracle Application Consultant Name | Role | Phone | [...] + + | 07/30/ | Telephone | [facility] | Ashley Chávez | Talia (Patient | | 2019 | | CARDIOLOGY [place] Abad, Sawmill Relief Worker | mariela ) | | | | [address] | | | | | | [place], [place] | | | | | | [address] | | | | | | [phone] | | | +--------+ + + + [...] [place] | | | | | | [address] | | | | | | | | +--------+---------+ + + + documented as of this encounter Visit Diagnoses Not on filedocumented in this encounter"
--- OUTSIDE RECORDS SUMMARY | ~2019-09-06 | XMS | Encounter Summary ---
Demographics + + + | Address | [address] | | | [place] [address] | + + + | Home Phone [...] [place] | | | | | [address] | | + + + + + Care Team Providers + +------+ + | Care Preform Plate Maker Name | Role | Phone | [...] + | 06/12/ | Office | [facility] | Chris Nicole, | Spondylisthesis | | 2013 | Visit | NEUROSURGERY [address] | PA-C [address] | (Primary Dx); | | | | [address] | [place], [place] | Radiculopathy of | | | | [place], [place] | [address] | leg; Lumbar spine | | | | [address] | | instability; Lumbar | | | | [phone] | | spondylosis; | | | | [...] rom the original. ZANE Castillo [address] [place] [address] FAX: NEUROSURGERY HISTORY AND PHYSICAL [...] Take 15 mg by mouth nightl y. [place]-3 Fatty Acids (FISH OIL CONCENTRATE) 1000 MG [...] has no apparent deficits with short or mcfp memory. CRANIAL NERVES: II: Acuity is intact. [...] Intrinsics 5 5 Ulnar Intrinsics 5 5 Eap Consultant Strength 5 5 Hip Flexion 5 4* [...] [place] | | | | | | [address] | | | | | | | [...]
--- OUTSIDE RECORDS SUMMARY | ~2019-09-06 | XMS | Encounter Summary ---
Demographics + + + | Address | [address] | | | [place] [address] | + + + | Home Phone [...] [place] | | | | | [address] | | + + + + + Care Team Providers + +------+ + | Care Diet Clerk Name | Role | Phone | [...] | Frandy Simons DO | [address] | | | | | of skin | [address] | [place], | | | | | sensation | [address] | [place] | | | | | Arthrodesis | [place], [place] | [address] | | | | | status Left | [address] | Phone: | | | | | leg | Phone: | [phone] | | | | | weakness | [phone] | Fax: | | | | | Procedures | Fax: | [phone] | | | | | MRI Lumbar | [phone] | | | | | | Spine [...] [address] | [address] [place], [place] | | | | | [place], [place] | [address] | | | | | [address] | | | | | | [phone] | | | +--------+ + + + [...] [place] | | | | | | [address] | | | | | | | [...] the round structure with high T1 and I0lzalrp in the right L3 vertebral | | [...] + | MISCELLANEOUS LAB | | | [phone] | + +---------+ + + | MISCELANIOUS LAB | | | [phone] | + +---------+ + + documented in [...]
--- OUTSIDE RECORDS SUMMARY | ~2019-09-06 | XMS | Encounter Summary ---
Demographics + + + | Address | [address] | | | [place] [address] | + + + | Home Phone [...] [place] | | | | | [address] | | + + + + + Care Team Providers + +------+ + | Care Blood Bank Order Control Clerk Name | Role | Phone [...] | | [address] | [place], [place] | | | | | [place], [place] | [address] | | | | | [address] | | | | | | [phone] | | | +--------+ + + + [...] | | | | | [place] | | | | | | [address] | | | | | | | [...] 0.83 m/s | | | MV Dec [place]: 2.85 m/s2 MV DecT: 282.89 ms MV E Teodoro: 0.80 | | | m/s MV E/A Ratio: 0.96 E/E' Sept: 12.59 E' Lat: 0.08 m/s | | | E' Sept: 0.06 m/s RAP: 10 mmHg RV S': 0.11 m/s RVSP: | | | 27.96 mmHg TR maxP.96 mmHg TR Vmax: 2.11 m/s | | | Flat Machine Cutter: Authenticated by: Desiree Peterson MD Report Date/Time: | | | -- 10_[id number]_9:31:1 | | + + + + + | Procedure Note | + + | Juan, Rad Conversion - 06/14/2019 1:12 PM PDT Patient Name: Clauida Arndt | | : 1955 Performing Physician: [...] (A-L): 19.60 | | ml/m2LAAs A2C: 15.44 [id number] A-L A2C: 43.84 mlLAESV MOD A2C: 42.12 mlLALs A2C: | | 4.61 cmLAAs A4C: 14.18 po3HKMVI A-L A4C: 38.73 mlLAESV MOD A4C: 37.04 mlLALs A4C: | | 4.41 cmRAAs: 12.15 ot1OQFEH A-L: 28.54 mlRAESV MOD: 28.66 mlRALs: 4.39 | | cmTAPSE: 2.42 cmAV Env.Ti: 293.94 msAV maxP.18 mmHgAV meanP.09 mmHgAV | | Vmax: 1.88 m/Eddie Vmean: 1.25 m/Eddie VTI: 36.84 cmAVA Vmax: 2.06 cm2AVA (VTI): | | 2.24 ee0OPWA Vmax: 0.00 cm2/m2AVAI (VTI): 0.00 cm2/m2LVOT Env.Ti: 299.59 msLVOT | | maxP.52 mmHgLVOT meanP.65 mmHgLVSI Dopp: 38.55 ml/m2LVSV Dopp: 82.89 | | mlLVOT Vmax: 1.27 m/sLVOT Vmean: 0.91 m/sLVOT VTI: 27.27 cmMV A Teodoro: 0.83 m/sMV | | Dec [place]: 2.85 m/s2MV DecT: 282.89 msMV E Teod[place]: 0.80 m/sMV E/A Ratio: 0.96E/E' | | Sept: 12.59E' Lat: 0.08 m/sE' Sept: 0.06 m/sRAP: 10 mmHgRV S': 0.11 m/sRVSP: | | 27.96 mmHgTR maxP.96 mmHgTR Vmax: 2.11 m/s Flat Machine Cutter:Authenticated by: | | Desiree Peterson MDReport Date/Time: -- [id number]:31:1 IMPRESSION: 1. Overall left | | ventricular [...] A Teodoro: 0.83 m/s | |MV Dec [place]: 2.85 m/s2 | |MV DecT: 282.89 ms | |MV E Teod[place]: 0.80 m/s | |MV E/A Ratio: 0.96 | |E/E' Sept: 12.59 | |E' Lat: 0.08 m/s | |E' Sept: 0.06 m/s | |RAP: 10 mmHg | |RV S': 0.11 m/s | |RVSP: 27.96 mmHg | |TR maxP.96 mmHg | |TR Vmax: 2.11 m/s | | | |Flat Machine Cutter: | |Authenticated by: Desiree Peterson MD | |Report Date/Time: -- 59_[id number]:31:1 | | | |IMPRESSION: | |1. Overall [...]
--- OUTSIDE RECORDS SUMMARY | ~2019-09-06 | XMS | Encounter Summary ---
Demographics + + + | Address | [address] | | | [place] [address] | + + + | Home Phone [...] [place] | | | | | [address] | | + + + + + Care Team Providers + +------+ + | Care Delivery Director Name | Role | Phone | [...] | | | spondylolist | | [address] | | | | | hesis | | [place], | | | | | Spinal | | [place] [address] | | | | | stenosis, | | Phone: | | | | | lumbar | | [phone] | | | | | region, | | Fax: | | | | | without | | [phone] | | | | | neurogenic | [...] | | | | | | | [place] ARTHDS[place] | | | | | | [...] | | | | | | [place] | | | | | | | [...] | | | | | | [place]G [place] | | | | | | | [...] + + | 07/02/ | Hospital | [facility] | Frandy Teresa, | Degenerative disc | | 2013 - | Encounter | MED CTR SURGICAL | DO [address] | disease, lumbar | | | | [address] | [place] [address] [place] | (Primary Dx); | | 07/05/ | | [place] [address] | [phone] | Diabetes mellitus | | 2013 | | [phone] | | ([facility]); Disturbance | | | | | [...] might be different fro m the original. [facility] DISCHARGE SUMMARY PATIENT NAME: Cindy [...] discharge to SNF. DISPOSITION: SNF ([facility]) DISCHARGE MEDICATIONS Medications prior to admission that [...] Take 15 mg by mouth nightl y. [place]-3 Fatty Acids (FISH OIL CONCENTRATE) 1000 MG [...] 0 | 03/31/20 | | | (THIEN LopezLINANA) 15 | nightly. | | | 12 | 5 | | MG disintegrating | | | | | | | tablet | | | | | | + + + +---------+ + + | [place]-3 Fatty | Take 1,000 mg by | [...] prophylaxis -DC plan: SNF versus home with [facility] any time. Maria T Storm RN - 07/04/2014 6:56 PM PDTFoley cath dc'd and MARI drain dc'd no problems. Chris Lynn PA-C - 07/04/2014 7:43 AM PDT [facility] PROGRESS NOTE Pt. Name/Age/: Cindy Arndt 58 y.o. 1955 Med. Record Number: [id number] Date of admission: 07/02/2014 Subjective: The patient [...] home medications. D/C plan: Home tomorrow with [facility]. D/c mari drain and riley cath today. 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 Patient Active Problem List Diagnosis LUMBAR [...] signed by: Chris Nicole, 07/04/2014 7:45 [facility] Chris Lynn PA-C - 07/03/2014 7:13 AM PDT . [facility] PROGRESS NOTE Pt. Name/Age/: Cindy Arndt 58 y.o. 1955 Med. Record Number: [id number] Date of admission: 07/02/2014 Subjective: The patient [...] activity, OOB to chair at least TID MRAI intact ~20cc Patient Active Problem List Diagnosis [...] signed by: Chris Nicole, 07/03/2014 7:13 [facility] Ton Menjivar, KRIS - 07/03/2014 [...] [place] | | | | | | [address] | | | | | | | [...] + | [facility] | [address] | [place], [place] | [phone] | | [facility] | | [address] | | | - LABORATORY | | | | + + + + + | [facility] | [address] | [place], [place] | | | [facility] | | [address] | | | - LABORATORY | | [...] + | [facility] | [address] | [place] | [phone] | | [facility] | | [address] | | | - LABORATORY | | | | + + + + + | [facility] | [address] | [place] | | | [facility] | | [address] | | | - LABORATORY | | [...] + | [facility] | [address] | [place] | [phone] | | [facility] | | [address] | | | - LABORATORY | | | | + + + + + | [facility] | [address] | [place] | | | [facility] | | [address] | | | - LABORATORY | | [...] + | [facility] | [address] | [place], [place] | [phone] | | [facility] | | [address] | | | - LABORATORY | | | | + + + + + | [facility] | [address] | [place], [place] | | | [facility] | | [address] | | | - LABORATORY | | [...] + | [facility] | [address] | [place] | [phone] | | [facility] | | [address] | | | - LABORATORY | | | | + + + + + | [facility] | [address] | [place] | | | [facility] | | [address] | | | - LABORATORY | | [...] + | [facility] | [address] | [place] | [phone] | | [facility] | | [address] | | | - LABORATORY | | | | + + + + + | [facility] | [address] | [place] | | | [facility] | | [address] | | | - LABORATORY | | [...] [address] | [place] | [phone] | | [facility] | | [address] | | | - LABORATORY | | | | + + + + + | [facility] | [address] | [place] | | | [facility] | | [address] | | | - LABORATORY | | [...] + | [facility] | [address] | [place], [place] | [phone] | | [facility] | | [address] | | | - LABORATORY | | | | + + + + + | [facility] | [address] | [place], [place] | | | [facility] | | [address] | | | - LABORATORY | | [...] [address] | [place] | [phone] | | [facility] | | [address] | | | - LABORATORY | | | | + + + + + | [facility] | [address] | [place], [place] | | | [facility] | | [address] | | | - LABORATORY | | [...] | of hardware for posterior fusion from H2wmfsosi S1 with interbody hardware at L5-S1. The [...] + + | Performing | Address | City[facility]State[facility] | Phone Number | | Organization | | | | + +---------+ + + | MISCELLANEOUS LAB | | | [phone] | + +---------+ + + | MISCELANIOUS LAB | | | [phone] | + +---------+ + + POC Glucose [...] + | [facility] | [address] | [place], [place] | [phone] | | [facility] | | [address] | | | - LABORATORY | | | | + + + + + | [facility] | [address] | [place], [place] | | | [facility] | | [address] | | | - LABORATORY | | [...] + | [facility] | [address] | [place] | [phone] | | [facility] | | [address] | | | - LABORATORY | | | | + + + + + | [facility] | [address] | [place] | | | [facility] | | [address] | | | - LABORATORY | | [...] | POC | | | [facility] | | | | | | MEDICAL [...] + | [facility] | [address] | [place] | [phone] | | [facility] | | [address] | | | - LABORATORY | | | | + + + + + | [facility] | [address] | [place] | | | [facility] | | [address] | | | - LABORATORY | | [...] + | [facility] | [address] | [place], [place] | [phone] | | [facility] | | [address] | | | - LABORATORY | | | | + + + + + | [facility] | [address] | [place] | | | [facility] | | [address] | | | - LABORATORY | | [...] + | [facility] | [address] | [place] | [phone] | | [facility] | | [address] | | | - LABORATORY | | | | + + + + + | [facility] | [address] | [place] | | | [facility] | | [address] | | | - LABORATORY | | [...] [place] | | | [facility] | | [address] | | | - BLOOD BANK | [...] + +---------+ +---+---+---+ | morphine 5 mg/mL AUDIT LEAD syringe | New Bag | 07/02/20 | [...] | | | | Dose(mg): 0, Starting AUDIT LEAD | | | | | | | Dose(mg): 1, Incremental Increase | | | | | | | AUDIT LEAD Dose(mg): 0.5, Maximum AUDIT LEAD | | | | | | | [...]
--- OUTSIDE RECORDS SUMMARY | ~2019-09-06 | XMS | Encounter Summary ---
Demographics + + + | Address | [address] | | | [place] [address] | + + + | Home Phone [...] [place] | | | | | [address] | | + + + + + Care Team Providers + +------+ + | Care Energy Manager Name | Role | Phone | [...] [address] | [address] [place], [place] | fusion | | | | [place], [place] | [address] | | | | | [address] | | | | | | [phone] | | | +--------+ + + + [...] [place] | | | | | | [address] | | | | | | | | +--------+---------+ + + + documented as of this encounter Visit Diagnoses + + | Diagnosis | + + | Lumbago - Primary | + + | S/P lumbar fusion Arthrodesis status | + + documented in this encounter"
--- OUTSIDE RECORDS SUMMARY | ~2019-09-06 | XMS | Encounter Summary ---
Demographics + + + | Address | [address] | | | [place] [address] | + + + | Home Phone [...] [place] | | | | | [address] | | + + + + + Care Team Providers + +------+ + | Care Computer Forensics Examiner Name | Role | Phone | [...] + | 07/15/ | Telephone | [facility] | Russell Alfaro PA | Other | | 2016 | | SLEEP DISORDER [address] | [address] | | | | | [address] [place] | [place] [facility], [place] | | | | | [place] [address] | [address] | | | | | [phone] | | | +--------+ + + + [...] [place] | | | | | | [address] | | | | | | | | +--------+---------+ + + + documented as of this encounter Visit Diagnoses Not on filedocumented in this encounter"
--- OUTSIDE RECORDS SUMMARY | ~2019-09-06 | XMS | Encounter Summary ---
Demographics + + + | Address | [address] | | | [place] [address] | + + + | Home Phone [...] [place] | | | | | [address] | | + + + + + Care Team Providers + +------+ + | Care Neurology Epilepsy Physician Name | Role | Phone | [...] + + | 08/28/ | Telephone | [facility] | Ashley Chávez | Other (Patient has | | 2019 | | CARDIOLOGY [place] Abad, Hand Ii Tube Bender | questions about | | | | [address] | | monitor. ) | | | | [address] | | | | | | [address] | | | | | | [phone] | | | +--------+ + + + [...] [place] | | | | | | [address] | | | | | | | | +--------+---------+ + + + documented as of this encounter Visit Diagnoses Not on filedocumented in this encounter"
--- OUTSIDE RECORDS SUMMARY | ~2019-09-06 | XMS | Encounter Summary ---
Demographics + + + | Address | [address] | | | [place] [address] | + + + | Home Phone [...] [place], [place] | | | | | [address] | | + + + + + Care Team Providers + +------+ + | Care Websphere Commerce Architect Name | Role | Phone | [...] | | | | | [place] [address] | | | | | | [phone] | | | +--------+ + + + [...] | | | | | [place] | | | | | | [address] | | | | | | | | +--------+---------+ + + + documented as of this encounter Visit Diagnoses Not on filedocumented in this encounter"
--- OUTSIDE RECORDS SUMMARY | ~2019-09-06 | XMS | Encounter Summary ---
Demographics + + + | Address | [address] | | | [place] [address] | + + + | Home Phone [...] [place], [place] | | | | | [address] | | + + + + + Care Team Providers + +------+ + | Care Pediatric Dental Assistant Name | Role | Phone | + +------+ + PCP | Unavailable | + +------+ + Encounter Details +--------+ + + + + | Date | Type | Department | Care Team | Description | +--------+ + + + + | 02/22/ | Hospital | [facility] | | | | 1996 - | Encounter | MED CTR GENERIC PSY | | | | | | CONV DEPT [address] | | | | 02/26/ | | [place], | | | | 1996 | | [place] [address] | | | | | | [phone] | | | +--------+ + + + [...] 2019 | Visit | | [address] | | | | | | [place] | | | | | | [address] | | | | | | | | +--------+---------+ + + + documented as of this encounter Visit Diagnoses Not on filedocumented in this encounter"
--- OUTSIDE RECORDS SUMMARY | ~2019-09-06 | XMS | Encounter Summary ---
Demographics + + + | Address | [address] | | | [place] [address] | + + + | Home Phone | | + + + | Preferred Language | Unknown | + + + | Marital Status | Single | + + + | Mu-Ism Affiliation | Unknown | + + + [...] [place] | | | | | [address] | | + + + + + Care Team Providers + +------+ + | Care Cryptography Teacher Name | Role | Phone | [...] | Transcriptions | + + | Interface, Dockmaster In - 11/04/2006 3:03 AM PST | | [address] | | [place], [place] [address] [facility] and | | ClinicsOPERATION RECORDMed Rec No.: [...] skin retractor was put in place. The [place] elevators wereused to separate the | | [...]
--- OUTSIDE RECORDS SUMMARY | ~2019-09-06 | XMS | Encounter Summary ---
Demographics + + + | Address | [address] | | | [place] [address] | + + + | Home Phone [...] [place], [place] | | | | | [address] | | + + + + + Care Team Providers + +------+ + | Care Wilderness Guide Name | Role | Phone | + +------+ + PCP | Unavailable | + +------+ + Encounter Details +--------+ + + + + | Date | Type | Department | Care Team | Description | +--------+ + + + + | 02/16/ | Hospital | [facility] | | | | 1994 | Encounter | MED CTR LABORATORY | | | | | | [address] | | | | | | [place] | | | | | | [address] | | | | | | [phone] | | | +--------+ + + + [...] | | | | | [place] | | | | | | [address] | | | | | | | | +--------+---------+ + + + documented as of this encounter Visit Diagnoses Not on filedocumented in this encounter"
--- OUTSIDE RECORDS SUMMARY | ~2019-09-06 | XMS | Encounter Summary ---
Demographics + + + | Address | [address] | | | [place] [address] | + + + | Home Phone [...] [place], [place] | | | | | [address] | | + + + + + Care Team Providers + +------+ + | Care Social Media Content Specialist Name | Role | Phone | + +------+ + PCP | Unavailable | + +------+ + Encounter Details +--------+ + + + + | Date | Type | Department | Care Team | Description | +--------+ + + + + | 05/25/ | Hospital | [facility] | | | | 1991 | Encounter | MED CTR LABORATORY | | | | | | [address] | | | | | | [place] | | | | | | [address] | | | | | | [phone] | | | +--------+ + + + [...] | | | | | [place] | | | | | | [address] | | | | | | | | +--------+---------+ + + + documented as of this encounter Visit Diagnoses Not on filedocumented in this encounter"
--- OUTSIDE RECORDS SUMMARY | ~2019-09-06 | XMS | Encounter Summary ---
Demographics + + + | Address | [address] | | | [place] [address] | + + + | Home Phone [...] [place] | | | | | [address] | | + + + + + Care Team Providers + +------+ + | Care Clerk Name | Role | Phone | [...] + + | 03/04/ | Telephone | [facility] | Baudilio Newman | Other (Plavix) | | 2014 | | NEUROLOGY LAURIE | MD Pollo Need updated | | | | | [address], | address | | | | | [address] [place] | | | | | | [place] [address] | | | | | | [phone] | | | +--------+ + + + [...] [place] | | | | | | [address] | | | | | | | | +--------+---------+ + + + documented as of this encounter Visit Diagnoses Not on filedocumented in this encounter"
--- OUTSIDE RECORDS SUMMARY | ~2019-09-06 | XMS | Encounter Summary ---
Demographics + + + | Address | [address] | | | [place] [address] | + + + | Home Phone [...] [place] | | | | | [address] | | + + + + + Care Team Providers + +------+ + | Care Salvage Cutter Name | Role | Phone | [...] | [facility] | Deon Gonzales | ROGERS (obstructive | | 2012 | Visit | SLEEP DISORDER [address] | MD Laure[address] | sleep apnea) | | | | [address] [place] | [address] [place] | (Primary Dx); | | | | [place] [address] | [place] [address] | Sleepiness | | | | [phone] | [phone] | | | | | | | [...] differen t from the original. 03/06/13 [address] [place] Sleepiness Scale Sitting and reading 3 Watching [...] by mouth Daily., Disp: , Rfl: ; Zoe-3 Fatty Acids (FISH OIL CONCENTRATE) 1000 MG [...] | | | | | [place] | | | | | | [id number] | | | | | | | | +--------+---------+ + + + documented as of this encounter Visit Diagnoses + + | Diagnosis | + + | ROGERS (obstructive sleep apnea) - Primary Obstructive sleep apnea (adult) (pediatric) | + + | Sleepiness Other alteration of consciousness | + + documented in this encounter"
--- OUTSIDE RECORDS SUMMARY | ~2019-09-06 | XMS | Encounter Summary ---
Demographics + + + | Address | [address] | | | [place] [address] | + + + | Home Phone [...] [place], [place] | | | | | [address] | | + + + + + Care Team Providers + +------+ + | Care Office Machine Technician Name | Role | Phone | + +------+ + PCP | Unavailable | + +------+ + Encounter Details +--------+ + + + + | Date | Type | Department | Care Team | Description | +--------+ + + + + | 09/23/ | Hospital | [facility] | | | | 1994 | Encounter | MED CTR LABORATORY | | | | | | [address] | | | | | | [place] | | | | | | [address] | | | | | | [phone] | | | +--------+ + + + [...] | | | | | [place] | | | | | | [address] | | | | | | | | +--------+---------+ + + + documented as of this encounter Visit Diagnoses Not on filedocumented in this encounter"
--- OUTSIDE RECORDS SUMMARY | ~2019-09-06 | XMS | Encounter Summary ---
Demographics + + + | Address | [address] | | | [place] [address] | + + + | Home Phone [...] [place] | | | | | [address] | | + + + + + Care Team Providers + +------+ + | Care Benefits Coordinator Name | Role | Phone | [...] + | 08/15/ | Documentati | [facility] | Katharine Moncada, | Other (urgent | | 2019 | on | CARDIOLOGY [place]IS | Technologist | report) | | | | [address] | | | | | | [place] | | | | | | [address] | | | | | | [phone] | | | +--------+ + + + [...] [place] | | | | | | [address] | | | | | | | | +--------+---------+ + + + documented as of this encounter Visit Diagnoses Not on filedocumented in this encounter"
--- OUTSIDE RECORDS SUMMARY | ~2019-09-06 | XMS | Encounter Summary ---
Demographics + + + | Address | [address] | | | [place] [address] | + + + | Home Phone [...] [place], [place] | | | | | [address] | | + + + + + Care Team Providers + +------+ + | Care Coal Carrier Name | Role | Phone | + +------+ + PCP | Unavailable | + +------+ + Encounter Details +--------+ + + + + | Date | Type | Department | Care Team | Description | +--------+ + + + + | 02/28/ | Hospital | [facility] | Deon Gonzales | | | 2011 | Encounter | MED CTR SLEEP | MD Laureano [address] | | | | | [place] [address] | [place] | | | | | [place], [place] | [place] [address] | | | | | [address] | [phone] | | | | | [phone] | | | +--------+ + + + [...] [place] | | | | | | [address] | | | | | | | | +--------+---------+ + + + documented as of this encounter Visit Diagnoses Not on filedocumented in this encounter"
--- OUTSIDE RECORDS SUMMARY | ~2019-09-06 | XMS | Encounter Summary ---
Demographics + + + | Address | [address] | | | [place] [address] | + + + | Home Phone [...] [place] | | | | | [address] | | + + + + + Care Team Providers + +------+ + | Care Research Recruiter Name | Role | Phone | [...] [place] | | | | | | [address] | | | | | | [phone] | | | +--------+ + + + [...] [place] | | | | | | [address] | | | | | | | | +--------+---------+ + + + documented as of this encounter Visit Diagnoses Not on filedocumented in this encounter"
--- OUTSIDE RECORDS SUMMARY | ~2019-09-06 | XMS | Encounter Summary ---
Demographics + + + | Address | [address] | | | [place] [address] | + + + | Home Phone [...] [place], [place] | | | | | [address] | | + + + + + Care Team Providers + +------+ + | Care Rack Puller Name | Role | Phone | + +------+ + PCP | Unavailable | + +------+ + Encounter Details +--------+ + + + + | Date | Type | Department | Care Team | Description | +--------+ + + + + | 12/27/ | Hospital | [facility] | | | | 1995 | Encounter | MED CTR LABORATORY | | | | | | [address] | | | | | | [place] | | | | | | [address] | | | | | | [phone] | | | +--------+ + + + [...] [place] | | | | | | [address] | | | | | | | | +--------+---------+ + + + documented as of this encounter Visit Diagnoses Not on filedocumented in this encounter"
--- OUTSIDE RECORDS SUMMARY | ~2019-09-06 | XMS | Encounter Summary ---
Demographics + + + | Address | [address] | | | [place] [address] | + + + | Home Phone [...] [place] | | | | | [address] | | + + + + + Care Team Providers + +------+ + | Care Production Material Handler Name | Role | Phone | + +------+ + PCP | Unavailable | + +------+ + Encounter Details +--------+ + + + + | Date | Type | Department | Care Team | Description | +--------+ + + + + | 04/27/ | Hospital | [facility] | Sage Garza MD | | | 2001 | Encounter | H[facility]PITAL EMERGENCY | | | | | | CENTER [address] | [address] [place], [place] | | | | | | [address] | | | | | | [phone] | | | +--------+ + + + [...] [place] | | | | | | [address] | | | | | | | | +--------+---------+ + + + documented as of this encounter Visit Diagnoses Not on filedocumented in this encounter"
--- OUTSIDE RECORDS SUMMARY | ~2019-09-06 | XMS | Encounter Summary ---
Demographics + + + | Address | [address] | | | [place] [address] | + + + | Home Phone [...] [place] | | | | | [address] | | + + + + + Care Team Providers + +------+ + | Care Family Preservation Caseworker Name | Role | Phone | [...] + + | 08/30/ | Telephone | [facility] | Ashley Chávez | Other (Patient wants | | 2019 | | CARDIOLOGY [place] | Pollo, Ladle Filler | to take monitor | | | | [address] | | off. ) | | | | [address] | | | | | | [place] | | | | | | [address] | | | | | | [phone] | | | +--------+ + + + [...] [place] | | | | | | [address] | | | | | | | | +--------+---------+ + + + documented as of this encounter Visit Diagnoses Not on filedocumented in this encounter"
--- OUTSIDE RECORDS SUMMARY | ~2019-09-06 | XMS | Encounter Summary ---
Demographics + + + | Address | [address] | | | [place] [address] | + + + | Home Phone [...] [place], [place] | | | | | [address] | | + + + + + Care Team Providers + +------+ + | Care Rpg Programmer Analyst Name | Role | Phone | + +------+ + PCP | Unavailable | + +------+ + Encounter Details +--------+ + + + + | Date | Type | Department | Care Team | Description | +--------+ + + + + | 05/29/ | Hospital | [facility] | | | | 1991 | Encounter | MED CTR LABORATORY | | | | | | [address] | | | | | | [place] | | | | | | [address] | | | | | | [phone] | | | +--------+ + + + [...] | | | | | [place] [facility] [place] | | | | | | [address] | | | | | | | | +--------+---------+ + + + documented as of this encounter Visit Diagnoses Not on filedocumented in this encounter"
--- OUTSIDE RECORDS SUMMARY | ~2019-09-06 | XMS | Encounter Summary ---
Demographics + + + | Address | [address] | | | [place] [address] | + + + | Home Phone [...] [place] | | | | | [address] | | + + + + + Care Team Providers + +------+ + | Care Hand Stemmer Name | Role | Phone | + [...] [address] [place] [address] | [place] [address] [place], [place] | | | | | [place], [place] | [id number] | | | | | [address] | | | | | | [phone] | | | +--------+ + + + [...] | | | | | [place] | | | | | | [address] | | | | | | | | +--------+---------+ + + + documented as of this encounter Visit Diagnoses Not on filedocumented in this encounter"
--- OUTSIDE RECORDS SUMMARY | ~2019-09-06 | XMS | Encounter Summary ---
Demographics + + + | Address | [address] | | | [place] [address] | + + + | Home Phone [...] [place] | | | | | [address] | | + + + + + Care Team Providers + +------+ + | Care Mainspring Fabrication Supervisor Name | Role | Phone | [...] | | | spondylolist | | [address] | | | | | hesis | | [place], | | | | | Spinal | | [place] [address] | | | | | stenosis, | | Phone: | | | | | lumbar | | [phone] | | | | | region, | | Fax: | | | | | without | | [phone] | | | | | neurogenic | [...] | | | | | [address] | [address] [place] | | | | | [place] | [phone] | | | | | [address] | | | | | | [phone] | | | +--------+ + + + [...] AW. DL times one with [facility] 3 easy view | | | 2 | Intubation | | | | 2 | | | | | 6 | | | +----+---+ + + | | 1 | AN Bite | | | | 2 | Block | | | | 2 | | | | | 7 | | | +----+---+ + + | | 1 | Wiggins | | | | 2 | 43-degrees | | | | 3 | | | | | 1 | | | +----+---+ + + | | 1 | Wiggins off | | | | 4 | [...] | | | | | [place], [place] | | | | | | [phone] | | | | | | | [...]
--- OUTSIDE RECORDS SUMMARY | ~2019-09-06 | XMS | Encounter Summary ---
Demographics + + + | Address | [address] | | | [place] [address] | + + + | Home Phone [...] [place] | | | | | [address] | | + + + + + Care Team Providers + +------+ + | Care Sheet Rock Applicator Name | Role | Phone | + +------+ + | Adriano Patrick MD | PCP | | + +------+ + Encounter Details +--------+ + + + + | Date | Type | Department | Care Team | Description | +--------+ + + + + | 06/12/ | Hospital | [facility] | Frandy Teresa, | No Show | | 2014 | Encounter | MED CTR | DO [address] | | | | | ELECTRODIAGNOSTICS | [place] [address] [place], [place] | | | | | [address] [place] | [address] | | | | | [place] [address] | | | | | | [phone] | | | +--------+ + + + [...] [place] | | | | | | [address] | | | | | | | | +--------+---------+ + + + documented as of this encounter Visit Diagnoses Not on filedocumented in this encounter"
--- OUTSIDE RECORDS SUMMARY | ~2019-09-06 | XMS | Encounter Summary ---
Demographics + + + | Address | [address] | | | [place] [address] | + + + | Home Phone [...] [place], [place] | | | | | [address] | | + + + + + Care Team Providers + +------+ + | Care Flour Worker Name | Role | Phone | + +------+ + PCP | Unavailable | + +------+ + Encounter Details +--------+ + + + + | Date | Type | Department | Care Team | Description | +--------+ + + + + | 03/26/ | Hospital | [facility] | | | | 2001 | Encounter | MED CTR LABORATORY | | | | | | [address] | | | | | | [place] | | | | | | [address] | | | | | | [phone] | | | +--------+ + + + [...] | | | | [place] | | | | | | [address] | | | | | | | | +--------+---------+ + + + documented as of this encounter Visit Diagnoses Not on filedocumented in this encounter"
--- OUTSIDE RECORDS SUMMARY | ~2019-09-06 | XMS | Encounter Summary ---
Demographics + + + | Address | [address] | | | [place] [address] | + + + | Home Phone [...] [place] | | | | | [address] | | + + + + + Care Team Providers + +------+ + | Care Loading Machine Operator Helper Name | Role | Phone [...] | Transcriptions | + + | Interface, Lead Applications Developer In - 11/04/2006 3:03 AM PST | | [address] | | [place], [place] [address] [facility] | | ClinicsOPERATION RECORDMed Rec [...] skin retractor was put in place. The [place] elevators wereused to separate the | | [...]
--- OUTSIDE RECORDS SUMMARY | ~2019-09-06 | XMS | Encounter Summary ---
Demographics + + + | Address | [address] | | | [place] [address] | + + + | Home Phone [...] [place] | | | | | [address] | | + + + + + Care Team Providers + +------+ + | Care Materials Assistant Name | Role | Phone | + +------+ + | Adriano Patrick MD | PCP | | + +------+ + Encounter Details +--------+ + + + + | Date | Type | Department | Care Team | Description | +--------+ + + + + | 06/10/ | Abstract | [facility] | Thierry Fry | | | 2014 | | MEDICINE [address] | MD Lisa [address] | | | | [address] [place] | [address] [place] | | | | | [place] [address] | [id number] | | | | | [phone] | | | +--------+ + + + [...] | | | | | [place] | | | | | | [id number] | | | | | | | [...]
--- OUTSIDE RECORDS SUMMARY | ~2019-09-06 | XMS | Encounter Summary ---
Demographics + + + | Address | [address] | | | [place] [address] | + + + | Home Phone [...] [place] | | | | | [address] | | + + + + + Care Team Providers + +------+ + | Care National Stormwater Leader Name | Role | Phone | [...] + + | 08/20/ | Documentati | [facility] | Katharine Moncada, | Other (urgent | | 2019 | on | CARDIOLOGY [place] | Technologist | report) | | | | [address] | | | | | | [place] | | | | | | [address] | | | | | | [phone] | | | +--------+ + + + [...] [place] | | | | | | [address] | | | | | | | | +--------+---------+ + + + documented as of this encounter Visit Diagnoses Not on filedocumented in this encounter"
--- OUTSIDE RECORDS SUMMARY | ~2019-09-06 | XMS | Encounter Summary ---
Demographics + + + | Address | [address] | | | [place] [address] | + + + | Home Phone [...] [place] | | | | | [address] | | + + + + + Care Team Providers + +------+ + | Care Tailor'S Aide Name | Role | Phone | [...] + + | 08/15/ | Documentati | [facility] | Katharine Moncada, | Other (urgent | | 2019 | on | CARDIOLOGY [place] | Technologist | report) | | | | [address] | | | | | | [place] | | | | | | [address] | | | | | | [phone] | | | +--------+ + + + [...] [place] | | | | | | [address] | | | | | | | | +--------+---------+ + + + documented as of this encounter Visit Diagnoses Not on filedocumented in this encounter"
--- OUTSIDE RECORDS SUMMARY | ~2019-09-06 | XMS | Encounter Summary ---
Demographics + + + | Address | [address] | | | [place] [address] | + + + | Home Phone [...] [place], [place] | | | | | [address] | | + + + + + Care Team Providers + +------+ + | Care Boating Safety Officer Name | Role | Phone | + +------+ + PCP | Unavailable | + +------+ + Encounter Details +--------+ + + + + | Date | Type | Department | Care Team | Description | +--------+ + + + + | 02/16/ | Hospital | [facility] | | | | 1994 | Encounter | MED CTR LABORATORY | | | | | | [address] | | | | | | [place] | | | | | | [address] | | | | | | [phone] | | | +--------+ + + + [...] | | | | | [place] | | | | | | [address] | | | | | | | | +--------+---------+ + + + documented as of this encounter Visit Diagnoses Not on filedocumented in this encounter"
--- OUTSIDE RECORDS SUMMARY | ~2019-09-06 | XMS | Clinical Summary ---
Demographics + + + | Address | [address] [facility] [address] | | | [place] [address] | + + + | Home Phone [...] [place] | | | | | [address] | | + + + + + Care Team Providers + +------+ + | Care Lump Roller Name | Role | Phone | + +------+ + PCP | Unavailable | + +------+ + Source Comments EDWARD is fully live on both [facility] and [facility] In[facility] Allergies Not on [...] | [facility] | xxxxxxxxxx | 02/22/20 | [phone] | [address] | [facility] | | | RE A & | | 15-Pre | 1 | [address] | re | | | B | | sent | | [place] | | | | | | | | [phone] | | + +--------+ +--------+ + +--------+ [...] Self | [birth year] | | [address] | | | al/Fam | | 1955 | [phone] | [address] [place] | | | devonte | | | 5 (Home) | [phone] | + +--------+ +--------+ + +"
--- OUTSIDE RECORDS SUMMARY | ~2019-09-06 | XMS | Encounter Summary ---
Demographics + + + | Address | [address] | | | [place] [address] | + + + | Home Phone [...] [place] | | | | | [address] | | + + + + + Care Team Providers + +------+ + | Care Medical Transcription Editor Name | Role | Phone | [...] + | 02/21/ | Refill | [facility] | Deon Gonzales | Medication Refill | | 2012 | | SLEEP DISORDER [address] | MD Laure[address] | | | | | [address] [place] [place] | [address] [place] | | | | | [place] [address] | [place] [address] | | | | | [phone] | [phone] | | | | | | | [...] [place] | | | | | | [address] | | | | | | | | +--------+---------+ + + + documented as of this encounter Visit Diagnoses + + | Diagnosis | + + | Obstructive sleep apnea (adult) (pediatric) - Primary | + + documented in this encounter"
--- OUTSIDE RECORDS SUMMARY | ~2019-09-06 | XMS | Encounter Summary ---
Demographics + + + | Address | [address] | | | [place] [address] | + + + | Home Phone [...] [place], [place] | | | | | [address] | | + + + + + Care Team Providers + +------+ + | Care Senior Quality Assurance Engineer Name | Role | Phone | + +------+ + PCP | Unavailable | + +------+ + Encounter Details +--------+ + + + + | Date | Type | Department | Care Team | Description | +--------+ + + + + | 02/02/ | Hospital | [facility] | | | | 1997 | Encounter | MED CTR EMERGENCY | | | | | | [place] | | | | | | [place] | | | | | | [address] | | | | | | [phone] | | | +--------+ + + + [...] | | | | | [place] | | | | | | [address] | | | | | | | | +--------+---------+ + + + documented as of this encounter Visit Diagnoses Not on filedocumented in this encounter"
--- OUTSIDE RECORDS SUMMARY | ~2019-09-06 | XMS | Encounter Summary ---
Demographics + + + | Address | [address] | | | [place] [address] | + + + | Home Phone [...] [place], [place] | | | | | [address] | | + + + + + Care Team Providers + +------+ + | Care Changer Fixer Name | Role | Phone | + +------+ + PCP | Unavailable | + +------+ + Encounter Details +--------+ + + + + | Date | Type | Department | Care Team | Description | +--------+ + + + + | 02/02/ | Hospital | [facility] | | | | 1997 - | Encounter | MED CTR GENERIC PSY | | | | | | CONV DEPT [address] | | | | 02/05/ | | [place], | | | | 1997 | | [place] [address] | | | | | | [phone] | | | +--------+ + + + [...] [place] | | | | | | [address] | | | | | | | | +--------+---------+ + + + documented as of this encounter Visit Diagnoses Not on filedocumented in this encounter"
--- OUTSIDE RECORDS SUMMARY | ~2019-09-06 | XMS | Encounter Summary ---
Demographics + + + | Address | [address] | | | [place] [address] | + + + | Home Phone [...] [place], [place] | | | | | [address] | | + + + + + [...] + + | 06/23/ | Hospital | [facility] | | | | 2000 | Encounter | MED CTR GENERIC OP | | | | | | CONV DEPT [address] | | | | | | [place], | | | | | | [place] [address] | | | | | | [phone] | | | +--------+ + + + [...] | | | | | [place] | | | | | | [address] | | | | | | | | +--------+---------+ + + + documented as of this encounter Visit Diagnoses Not on filedocumented in this encounter"
--- OUTSIDE RECORDS SUMMARY | ~2019-09-06 | XMS | Encounter Summary ---
Demographics + + + | Address | [address] | | | [place] [address] | + + + | Home Phone [...] [place] | | | | | [address] | | + + + + + Care Team Providers + +------+ + | Care Corporate Travel Agent Name | Role | Phone | [...] + + | 08/21/ | Documentati | [facility] | Katharine Moncada, | Other (urgent | | 2019 | on | CARDIOLOGY [place] | Technologist | report) | | | | [address] | | | | | | [place] | | | | | | [address] | | | | | | [phone] | | | +--------+ + + + [...] [place] | | | | | | [address] | | | | | | | | +--------+---------+ + + + documented as of this encounter Visit Diagnoses Not on filedocumented in this encounter"
--- OUTSIDE RECORDS SUMMARY | ~2019-09-06 | XMS | Encounter Summary ---
Demographics + + + | Address | [address] | | | [place] [address] | + + + | Home Phone [...] [place] | | | | | [address] | | + + + + + Care Team Providers + +------+ + | Care Hi Lift Operator Name | Role | Phone | [...] | [address] | [place], [place] | | | | | [place] [address] | [address] | | | | | [place] | | | | | | [address] | Dora De La Torre | | | | | [phone] | CAROLINE Mendez [address] | | | | | | [address] | | | | | | [place] [address] | | | | | | [phone] | | | | | | | [...] [place] | | | | | | [address] | | | | | | | | +--------+---------+ + + + documented as of this encounter Visit Diagnoses + + | Diagnosis | + + | Syncope, unspecified syncope type | + + documented in this encounter"
--- OUTSIDE RECORDS SUMMARY | ~2019-09-06 | XMS | Encounter Summary ---
Demographics + + + | Address | [address] | | | [place] [address] | + + + | Home Phone [...] [place] | | | | | [address] | | + + + + + Care Team Providers + +------+ + | Care Field Aide Name | Role | Phone | [...] + + | 07/19/ | Office | [facility] | Desiree Peterson DO | Syncope, unspecified | | 2019 | Visit | CARDIOLOGY [place] | [address] | syncope type | | | | [address] | [place], [place] | (Primary Dx); | | | | [address] [place] | [address] | Essential | | | | [place] | | hypertension; | | | | [address] | | Irregular heartbeat | | | | [phone] | | | +--------+---------+ + + + [...] Peterson DO - 07/19/2019 10:40 AM PDT [facility] Cardiology Follow Up [...] by mouth daily. Blood Glucose Monitoring Suppl (DorsaVI VERIO FLEX SYSTEM) w/Device KIT by Does not ap ply route. budesonide-formoterol (SYMBICORT) 160-4.5 MCG/ACT inhaler Inhale 2 puffs into the lungs 2 (two) times daily. Calcium Carbonate Antacid 1000 MG tablet Take 1,000 mg by mouth 3 (three) times daily. Cholecalciferol (VITAMIN D3) 96001 units CAPS Take by mouth once a [...] | | | | | | [place] | | | | | | [address] | | | | | | | [...]
--- OUTSIDE RECORDS SUMMARY | ~2019-09-06 | XMS | Encounter Summary ---
Demographics + + + | Address | [address] | | | [place] [address] | + + + | Home Phone [...] [place] | | | | | [address] | | + + + + + Care Team Providers + +------+ + | Care Ferris Wheel Attendant Name | Role | Phone | [...] | | | | CENTER [address] | [address] [facility] | ([facility]) (Primary Dx) | | | | [place], [place] | [place] [address] | | | | | [address] | [phone] | | | | | [phone] | | | +--------+ + + + [...] + + + +---------+ + + | Mino[place]-3 Fatty | Take 1,000 mg by | [...] | | | | | [place] | | | | | | [address] | | | | | | | [...] | | MEDICAL | | | | mL/min/1.94d8Mlol than | | CENTER - | | [...] | 9.1 | 8.3 - 10.5 | [facility] | | | | | mg/dL [...] [address] | [place] | [phone] | | [facility] | | [address] | | | - LABORATORY | | [...] [address] | [place] | [phone] | | [facility] | | [address] | | | - LABORATORY | | [...] | ---- | | | 02/26/2015 13:10 [facility] | | | Emergency -numbness/facial droop 02/26/2015 08:15 [facility] | | | [facility] 02/19/2015 | | | 10:15 [facility] | | | [...] as uncontrolled 02/17/2015 | | | 08:22 [facility] Emergency | | | -Long-term [...] and uterus 02/14/2015 | | | 09:56 [facility] Emergency | | | -Disturbance [...] 02/06/2015 10:46 | | | [facility] | | | [...] residual deficits | | | 02/01/2015 21:38 [facility] | | | Emergency 01/22/2015 14:00 [facility] | | | Urgent Care [...] intervertebral disc | | | 01/16/2015 12:15 [facility] | | | Urgent Care [...] other | | | medications 01/07/2015 11:45 [facility] | | | Urgent Care [...] acquired hypothyroidism 12/30/2014 | | | 17:54 [facility] Emergency | | | -Obstructive [...] essential hypertension | | | 12/30/2014 14:30 [facility] | | | Urgent Care [...] | | -Cramp of limb 11/29/2014 16:15 [facility] | | | Urgent Care [...] ------ | | | --------- [address] | | | [facility] [address] [address] [facility] [address] | | | [facility] 7 0 Total | | | Note: Visits indicate total known visits. [place] Dx are the | | | number of primary diagnoses on the [facility]'s non-emergent dx list. | | | [...]
--- OUTSIDE RECORDS SUMMARY | ~2019-09-06 | XMS | Encounter Summary ---
Demographics + + + | Address | [address] | | | [place] [address] | + + + | Home Phone [...] [place] | | | | | [address] | | + + + + + Care Team Providers + +------+ + | Care Event Marketing Coordinator Name | Role | Phone [...] + + | 02/01/ | Telephone | [facility] | Frandy Teresa, | Imaging Only | | 2019 | | NEUROSURGERY [address] | DO [address] | | | | | [address] [address] | [place] [address] [place], [place] | | | | | [place], [place] | [address] | | | | | [address] | | | | | | [phone] | | | +--------+ + + + [...] [place] | | | | | | [address] | | | | | | | | +--------+---------+ + + + documented as of this encounter Visit Diagnoses Not on filedocumented in this encounter"
--- OUTSIDE RECORDS SUMMARY | ~2019-09-06 | XMS | Clinical Summary ---
Demographics + + + | Address | [address] | | | [place] [address] | + + + | Home Phone [...] [place] | | | | | [address] | | + + + + + Care Team Providers + +------+ + | Care Rental Representative Name | Role | Phone | [...] | | Activ | | (VITAMIN D-3) [address] | mouth Once a week. | | [...] | | | | ([facility]) | | | | | | [...] | | | | e | | ([place] VERIO FLEX | | | | | [...] | | 2018 | | | D, Water Taxi Driver | to take monitor | | | | | | off. ) | +--------+ + + + + | 08/28/ | Telephone | Cardiology | Ashley Chávez | Other (Patient has | | 2018 | | | D, Water Taxi Driver | questions about | | | | [...] | | 2018 | | | Poll[place], Water Taxi Driver | tell patient what Dr | | [...] | | 2018 | | | D, Water Taxi Driver | anxious about urgent | | | [...] (Questions | 2018 | | | D, Water Taxi Driver | about coverage. ) | +--------+ + + + + | 07/30/ | Telephone | Cardiology | Ashley Chávez | Other (Patient | | 2018 | | | D, Water Taxi Driver | concerns ) | +--------+ + + + + | 07/24/ | Telephone | Cardiology | Ashley Chávez | Other (Patient is | | 2018 | | | D, Water Taxi Driver | worried about paying | | | [...] | | 2019 | | | D, Water Taxi Driver | called to cancel her | | [...] [place] | | | | | | [address] | | | | | | | [...] | [employer] - | | 04/02/ | [id number] | | 5ccImplanted: Qty: 1 on | | Spine | MEDT | | 2019 | | | 07/02/2014 by Frandy Teresa | | Lumbar | | | | /[id number] | | [facility] | | | | | | 6-020 | | [facility] | | | | | | / | + +------+--------+ +--------+--------+--------+ | Graft Infuse Bone Kit Xxs - | | N/A: | SOFAMOR | | 01/21/ | [id number] | | [id number]: Qty: 1 on | | Spine | DANEK - DIV | | 2014 | 0 / | | 07/02/2014 by Frandy Teresa | | Lumbar | [employer] | | | /[id number] | | A, DO at [facility] | | | - SFDK | | | 06AAH | | [facility] | | | | | | | + +------+--------+ +--------+--------+--------+ | Imp Spn Spcr Cpstn 8x26mm - | | N/A: | SOFAMOR | | 01/11/ | [id number] | | [id number]: Qty: 1 on | | Spine | DANEK - DIV | | 2021 | 6 / | | 07/02/2014 by Frandy Teresa | | Lumbar | [employer] | | | /[id number] | | A, DO at [facility] | | | - SFDK | | | 928 | | [facility] | | | | | | | + +------+--------+ +--------+--------+--------+ | Set Scrw Ns G5 Brk Off Ti | | N/A: | SOFAMOR | | | [id number] | | 4.75 - [id number]: | | Spine | DANEK - DIV | | | 0 / / | | Qty: 4 on 07/02/2014 by | | Lumbar | [employer] | | | | | Frandy Teresa, DO at [facility] | | | - SFDK | | | | | [facility] | | | | | | | | [place] | | | | | | | + +------+--------+ +--------+--------+--------+ | RodImplanted: Qty: 1 on | | N/A: | | | | [id number] | | 07/02/2014 by Frandy Teresa | | Spine | | | | 540 / | | A DO at [facility] | | Lumbar | | | | / | | [facility] | | | | | | | + +------+--------+ +--------+--------+--------+ | RodImplanted: Qty: 1 on | | N/A: | MEDTROL - | | | [id number] | | 07/02/2014 by Frandy Teresa | | Spine | MDTR | | | 545 / | | A DO at [facility] | | Lumbar | | | | / | | [facility] | | | | | | | + +------+--------+ +--------+--------+--------+ | Screw 7.5x50mm Sextant - | | N/A: | [employer] - | | | [id number] | | [id number]: Qty: 1 on | | Spine | MEDT | | | [id number] | | 07/02/2014 by Frandy Teresa | | Lumbar | | | | / / | | DO Ronak at [facility] | | | | | | | | [facility] | | | | | | | + +------+--------+ +--------+--------+--------+ | Cannulated ScrewImplanted: | | N/A: | MEDTROL - | | | [id number] | | Qty: 1 on 07/02/2014 by | | Spine | MDTR | | | [id number] | | Frandy Teresa DO at [facility] | | Lumbar | | | | / / | | [facility] | | | | | | | | [facility]ENTER | | | | | | | + +------+--------+ +--------+--------+--------+ | Cannulated ScrewImplanted: | | N/A: | MEDTR[employer]IC - | | | [id number] | | Qty: 1 on 07/02/2014 by | | Spine | MEDT | | | [id number] | | Frandy Teresa DO at [facility] | | Lumbar | | | | / / | | [facility] | | | | | [...] +--------+ +---------+--------+ | MEDICARE | MEDICA | [id number] | 02/22/20 | [phone] | | Medica | | | RE | | 09-Pre | 5 | | re | | | PART A | | sent | | | | | | AND B | | | | | | + +--------+ +--------+ +---------+--------+ | MEDICARE | MEDICA | [id number] | 02/22/20 | [phone] | | Medica [...] [place] | | | 8 (Home) | [address] | + +--------+ +--------+ + + | Cindy Arndt | Person | Self | [birth year] | [address] | | al/Fam | | 1955 | [phone] | [address] [place], [place] | | | [place] | | | 8 (Home) | [address] | + +--------+ +--------+ + + Advance Directives + + + + + | Type | Date Recorded | Patient | Explanation | | | | Flash Welding Machine Operator | | + + + + + | Power of | | | | | Distance Learning Unit Leader | | | | + + + [...]
--- OUTSIDE RECORDS SUMMARY | ~2019-09-06 | XMS | Encounter Summary ---
Demographics + + + | Address | [address] | | | [place] [address] | + + + | Home Phone [...] [place] | | | | | [address] | | + + + + + Care Team Providers + +------+ + | Care Hospital Admissions Clerk Name | Role | Phone | [...] Emergency | [facility] | Yunior [place], | Chest pain, | | 2014 | | MED CTR EMERGENCY | MD [address] | unspecified chest | | | | CENTER [address] | [place], [place] | pain type (Primary | | | | [place], [place] | [address] | Dx) | | | | [address] | | | | | | [phone] | | | +--------+ + + + [...] sent through Care Everywhere.CHEST PAIN, NON CARDIAC (DANISH)documented in this encounter Medications at Time of [...] 0 | | | | (VITAMIN D-3) [address] | mouth Once a week. | | [...] | | | | | | | ([facility]) | | | | | | [...] + + + +---------+ + + | [place]-3 Fatty | Take 1,000 mg by | [...] [place] | | | | | | [address] | | | | | | | [...] [address] | [place] | [phone] | | [facility] | | [address] | | | - LABORATORY | | [...] [address] | [place] | [phone] | | [facility] | | [address] | | | - LABORATORY | | [...] | | | | | | [employer] | | | | | [...] + | Performing | Address | City/State/[facility] | Phone Number | | Organization | | | | + + + + + | [facility] | [address] | [place] | [phone] | | [facility] | | [address] | | | - LABORATORY | | [...] | | MEDICAL | | | | mL/min/1.37r9Dnxu than | | CENTER - | | [...] [address] | [place] | [phone] | | [facility] | | [address] | | | - LABORATORY | | [...] [address] | [place] | [phone] | | [facility] | | [address] | | | - LABORATORY | | [...] | | | | MD NAZARIO JON ([id number]) | | | | | | on [...]
--- OUTSIDE RECORDS SUMMARY | ~2019-09-06 | XMS | Encounter Summary ---
Demographics + + + | Address | [address] | | | [place] [address] | + + + | Home Phone [...] [place] | | | | | [address] | | + + + + + Care Team Providers + +------+ + | Care Incident Response Specialist Name | Role | Phone | [...] [address] | [address] [place], [place] | | | | | [place], [place] | [id number] | | | | | [address] | | | | | | [phone] | | | +--------+ + + + [...] [place] | | | | | | [address] | | | | | | | | +--------+---------+ + + + documented as of this encounter Visit Diagnoses Not on filedocumented in this encounter"
--- OUTSIDE RECORDS SUMMARY | ~2019-09-06 | XMS | Encounter Summary ---
Demographics + + + | Address | [address] | | | [place] [address] | + + + | Home Phone [...] [place] | | | | | [address] | | + + + + + Care Team Providers + +------+ + | Care Extractor Puller Name | Role | Phone | [...] | | [address] | [place], [place] | | | | | [place], [place] | [address] | | | | | [address] | | | | | | [phone] | | | +--------+ + + + [...] | | | | | [place] | | | | | | [address] | | | | | | | [...] 0.83 m/s | | | MV Dec [place]: 2.85 m/s2 MV DecT: 282.89 ms MV E Te[place]: 0.80 | | | m/s MV E/A Ratio: 0.96 E/E' Sept: 12.59 E' Lat: 0.08 m/s | | | E' Sept: 0.06 m/s RAP: 10 mmHg RV S': 0.11 m/s RVSP: | | | 27.96 mmHg TR maxP.96 mmHg TR Vmax: 2.11 m/s | | | Clinical Medical Assistant: Authenticated by: Desiree Peterson MD Report Date/Time: | | | -- 00_[id number]_9:31:1 | | + + + + + [...] (A-L): 19.60 | | ml/m2LAAs A2C: 15.44 [id number] A-L A2C: 43.84 mlLAESV MOD A2C: 42.12 mlLALs A2C: | | 4.61 cmLAAs A4C: 14.18 [id number] A-L A4C: 38.73 mlLAESV MOD A4C: 37.04 mlLALs A4C: | | 4.41 cmRAAs: 12.15 [id number] A-L: 28.54 mlRAESV MOD: 28.66 mlRALs: 4.39 | | cmTAPSE: 2.42 cmAV Env.Ti: 293.94 msAV maxP.18 mmHgAV meanP.09 mmHgAV | | Vmax: 1.88 m/Eddie Vmean: 1.25 m/Eddie VTI: 36.84 cmAVA Vmax: 2.06 cm2AVA (VTI): | | 2.24 [id number] Vmax: 0.00 cm2/m2AVAI (VTI): 0.00 cm2/m2LVOT Env.Ti: 299.59 msLVOT | | maxP.52 mmHgLVOT meanP.65 mmHgLVSI Dopp: 38.55 ml/m2LVSV Dopp: 82.89 | | mlLVOT Vmax: 1.27 m/sLVOT Vmean: 0.91 m/sLVOT VTI: 27.27 cmMV A Teodoro: 0.83 m/sMV | | Dec [place]: 2.85 m/s2MV DecT: 282.89 msMV E [place]: 0.80 m/sMV E/A Ratio: 0.96E/E' | | Sept: 12.59E' Lat: 0.08 m/sE' Sept: 0.06 m/sRAP: 10 mmHgRV S': 0.11 m/sRVSP: | | 27.96 mmHgTR maxP.96 mmHgTR Vmax: 2.11 m/s Clinical Medical Assistant:Authenticated by: | | Desiree Peterson MDReport Date/Time: -- [id number]_5:31:1 IMPRESSION: 1. Overall left | | ventricular [...] A Teodoro: 0.83 m/s | |MV Dec [place]: 2.85 m/s2 | |MV DecT: 282.89 ms | |MV E Teod[place]: 0.80 m/s | |MV E/A Ratio: 0.96 | |E/E' Sept: 12.59 | |E' Lat: 0.08 m/s | |E' Sept: 0.06 m/s | |RAP: 10 mmHg | |RV S': 0.11 m/s | |RVSP: 27.96 mmHg | |TR maxP.96 mmHg | |TR Vmax: 2.11 m/s | | | |Clinical Medical Assistant: | |Authenticated by: Desiree Peterson MD | |Report Date/Time: -- [id number]_4:31:1 | | | |IMPRESSION: | |1. Overall [...]
--- OUTSIDE RECORDS SUMMARY | ~2019-09-06 | XMS | Encounter Summary ---
Demographics + + + | Address | [address] | | | [place] [address] | + + + | Home Phone [...] [place] | | | | | [address] | | + + + + + Care Team Providers + +------+ + | Care Injection Molding Process Technician Name | Role | Phone | [...] | | | | | | [place] [address] | | | | | | [phone] | | | | | | | [...] in | | | | | | [place] with a | | | | | [...] | | | | | | Laboratory, [place], | | | | | | [place], delivered | | | | | | [...] by | | | | | | nkzqsjphQgg-Kad-H: | | | | | | Increased [...] istryMHC-1: | | | | | | [id number] stain | | | | | | [...] | + + + + + | [facility] | [address] | [place] [address] | | | PATHOLOGY | [place] | | | + + + + + documented in this encounter Visit Diagnoses Not on filedocumented in this encounter
--- OUTSIDE RECORDS SUMMARY | ~2019-09-06 | XMS | Encounter Summary ---
Demographics + + + | Address | [address] | | | [place] [address] | + + + | Home Phone [...] [place], [place] | | | | | [address] | | + + + + + Care Team Providers + +------+ + | Care Build Engineer Name | Role | Phone | + +------+ + PCP | Unavailable | + +------+ + Encounter Details +--------+ + + + + | Date | Type | Department | Care Team | Description | +--------+ + + + + | 01/26/ | Hospital | [facility] | Dale, Heath E A, | | | 2012 | Encounter | MED CTR XRAY [address] | MD [address] [place] | | | | | [place] | [place] | | | | | [place] [address] | [address] | | | | | [phone] | | | +--------+ + + + [...] [place] | | | | | | [address] | | | | | | | [...] Performed At | + + + | [facility] | [facility] | | [address] | [facility] | | BILATERAL KNEES, THREE VIEWS: | [...] Transcribed | | | Date/Time: 01/27/2012 17:18 Automobile Lights Assembler: | | | <Electronically Signed by Willie Perry MD> 01/27/12 2604 | | + + + + + | Procedure Note | + + | Juan, Rad Conversion - 11/30/2013 5:[address] [facility] | | Diagnostic Imaging Department [address] [place] [address] | | BILATERAL KNEES, THREE VIEWS: 01/27/2012 [...] 17:12 | |Transcribed Date/Time: 01/27/2012 17:18 | |Automobile Lights Assembler: | |<Electronically Signed by Willie Perry MD> 01/27/12 384 | + + + +---------+ + + [...]
--- OUTSIDE RECORDS SUMMARY | ~2019-09-06 | XMS | Encounter Summary ---
Demographics + + + | Address | [address] | | | [place] [address] | + + + | Home Phone [...] [place] | | | | | [address] | | + + + + + Care Team Providers + +------+ + | Care Janitorial Manager Name | Role | Phone | [...] + | 08/22/ | Documentati | [facility] | Katharine Moncada, | Other (urgent | | 2019 | on | CARDIOLOGY [place] | Technologist | report) | | | | [address] | | | | | | [place] | | | | | | [address] | | | | | | [phone] | | | +--------+ + + + [...] [place] | | | | | | [address] | | | | | | | | +--------+---------+ + + + documented as of this encounter Visit Diagnoses Not on filedocumented in this encounter"
--- OUTSIDE RECORDS SUMMARY | ~2019-09-06 | XMS | Encounter Summary ---
Demographics + + + | Address | [address] | | | [place] [address] | + + + | Home Phone [...] [place], [place] | | | | | [address] | | + + + + + Care Team Providers + +------+ + | Care Rn Critical Care Name | Role | Phone | + +------+ + PCP | Unavailable | + +------+ + Encounter Details +--------+ + + + + | Date | Type | Department | Care Team | Description | +--------+ + + + + | 02/22/ | Hospital | [facility] | | | | 1996 | Encounter | [facility] | | | | | | [address] | | | | | | [place] | | | | | | [address] | | | | | | [phone] | | | +--------+ + + + [...] | | | | | [place] | | | | | | [address] | | | | | | | | +--------+---------+ + + + documented as of this encounter Visit Diagnoses Not on filedocumented in this encounter"
--- OUTSIDE RECORDS SUMMARY | ~2019-09-06 | XMS | Encounter Summary ---
Demographics + + + | Address | [address] | | | [place] [address] | + + + | Home Phone [...] [place] | | | | | [address] | | + + + + + Care Team Providers + +------+ + | Care Senior Planner Name | Role | Phone | [...] + | 06/20/ | Telephone | [facility] | Frandy Teresa, | Other (surgery | | 2013 | | NEUROSURGERY [address] | DO [address] | reminder ) | | | | [address] | [address] [place], [place] | | | | | [place], [place] | [address] | | | | | [address] | | | | | | [phone] | | | +--------+ + + + [...] | | | | | [place] | | | | | | [address] | | | | | | | | +--------+---------+ + + + documented as of this encounter Visit Diagnoses Not on filedocumented in this encounter"
--- OUTSIDE RECORDS SUMMARY | ~2019-09-06 | XMS | Encounter Summary ---
Demographics + + + | Address | [address] | | | [place] [address] | + + + | Home Phone [...] [place], [place] | | | | | [address] | | + + + + + Care Team Providers + +------+ + | Care Supply Chain Generalist Name | Role | Phone | + +------+ + PCP | Unavailable | + +------+ + Encounter Details +--------+ + + + + | Date | Type | Department | Care Team | Description | +--------+ + + + + | 05/23/ | Hospital | [facility] | | | | 1991 | Encounter | MED CTR XRAY [address] | | | | | | [place] | | | | | | [place] [address] | | | | | | [phone] | | | +--------+ + + + [...] | | | | | [place] | | | | | | [address] | | | | | | | | +--------+---------+ + + + documented as of this encounter Visit Diagnoses Not on filedocumented in this encounter"
--- OUTSIDE RECORDS SUMMARY | ~2019-09-06 | XMS | Encounter Summary ---
Demographics + + + | Address | [address] | | | [place] [address] | + + + | Home Phone [...] [place] | | | | | [address] | | + + + + + Care Team Providers + +------+ + | Care Quitline Counselor Name | Role | Phone | [...] + + | 08/22/ | Documentati | [facility] | Katharine Moncada, | Other (urgent | | 2019 | on | CARDIOLOGY [place] | Technologist | report) | | | | [address] | | | | | | [place] | | | | | | [address] | | | | | | [phone] | | | +--------+ + + + [...] [place] | | | | | | [address] | | | | | | | | +--------+---------+ + + + documented as of this encounter Visit Diagnoses Not on filedocumented in this encounter"
--- OUTSIDE RECORDS SUMMARY | ~2019-09-06 | XMS | Encounter Summary ---
Demographics + + + | Address | [address] | | | [place] [address] | + + + | Home Phone [...] Author + + + | Author | [facility] | + + + | Organization | [facility] | + + + | Address | Unknown | + + + | Phone | Unavailable | + + + Support + + + + + | Name | Relationship | Address | Phone | + + + + + | Kelsy Bautista | [address] | [address] | | | | | [place] | | | | | [address] | | + + + + + Care Team Providers + +------+ + | Care Long Chain Quiller Tender Name | Role | Phone | [...] [address] | | | | | | [place], [place] | | | | | | [address] | | | +--------+ + + + [...]
--- OUTSIDE RECORDS SUMMARY | ~2019-09-06 | XMS | Encounter Summary ---
Demographics + + + | Address | [address] | | | [place] [address] | + + + | Home Phone [...] [place] | | | | | [address] | | + + + + + Care Team Providers + +------+ + | Care Golf Superintendent Name | Role | Phone | [...] + + | 03/26/ | Telephone | [facility] | Thierry Fry | Medication Prior | | 2015 | | MEDICINE [facility] Daniel | MD Lisa [address] | Authorization | | | | [facility] | [facility] [place] | (Dexilant 60Mg) | | | | [place] [address] | [address] | | | | | [phone] | | | +--------+ + + + [...] [place] | | | | | | [address] | | | | | | | | +--------+---------+ + + + documented as of this encounter Visit Diagnoses Not on filedocumented in this encounter"
--- OUTSIDE RECORDS SUMMARY | ~2019-09-06 | XMS | Encounter Summary ---
Demographics + + + | Address | [address] | | | [place] [address] | + + + | Home Phone [...] [place] | | | | | [address] | | + + + + + Care Team Providers + +------+ + | Care Shredding Floor Equipment Operator Name | Role | Phone [...] | Frandy Simons DO | [address] | | | | | of skin | [address] | [place], | | | | | sensation | [address] | [place] | | | | | Arthrodesis | [place], [place] | [address] | | | | | status Left | [address] | Phone: | | | | | leg | Phone: | [phone] | | | | | weakness | [phone] | Fax: | | | | | Procedures | Fax: | [phone] | | | | | MRI Lumbar | [phone] | | | | | | Spine [...] | Frandy Simons DO | [address] | | | | | of skin | [address] | [place], | | | | | sensation | [address] | [place] | | | | | Arthrodesis | [place] | [address] | | | | | status Left | [address] | Phone: | | | | | leg | Phone: | [phone] | | | | | weakness | [phone] | Fax: | | | | | Procedures | Fax: | [phone] | | | | | MRI Lumbar | [phone] | | | | | | Spine wo | | | | | | | Contrast | | | +--------+--------+ + + + + Encounter Details +--------+ + + + + | Date | Type | Department | Care Team | Description | +--------+ + + + + | 08/19/ | Hospital | [facility] | Frandy Teresa, | Status post lumbar | | 2013 | Encounter | MED CTR MRI [address] | DO [address] | spinal fusion; Left | | | | [place], | [address] [place] | leg numbness; Left | | | | [place] [address] | [address] | leg weakness | | | | [phone] | | | +--------+ + + + [...] + + + +---------+ + + | [place]-3 Fatty | Take 1,000 mg by [...] [place] | | | | | | [address] | | | | | | | [...] the round structure with high T1 and M[place] in the right L3 vertebral | | [...] + | MISCELLANEOUS LAB | | | [phone] | + +---------+ + + | MISCELANIOUS LAB | | | [phone] | + +---------+ + + documented in [...]
--- OUTSIDE RECORDS SUMMARY | ~2019-09-06 | XMS | Encounter Summary ---
Demographics + + + | Address | [address] | | | [place] [address] | + + + | Home Phone [...] [place] | | | | | [address] | | + + + + + Care Team Providers + +------+ + | Care Motor Bike Mechanic Name | Role | Phone | [...] + | 07/29/ | Telephone | [facility] | Frandy Teresa, | Other (multiple | | 2013 | | NEUROSURGERY [address] | DO [address] | questions) | | | | [address] | [address] [place], [place] | | | | | [place], [place] | [address] | | | | | [address] | | | | | | [phone] | | | +--------+ + + + [...] | | | | | [place] | | | | | | [address] | | | | | | | | +--------+---------+ + + + documented as of this encounter Visit Diagnoses Not on filedocumented in this encounter"
--- OUTSIDE RECORDS SUMMARY | ~2019-09-06 | XMS | Encounter Summary ---
Demographics + + + | Address | [address] | | | [place] [address] | + + + | Home Phone [...] [place], [place] | | | | | [address] | | + + + + + Care Team Providers + +------+ + | Care Continuous Absorption Process Operator Name | Role | Phone | [...] Location | | | | | | [phone] | | | +--------+ + + + [...] [place] | | | | | | [address] | | | | | | | | +--------+---------+ + + + documented as of this encounter Visit Diagnoses Not on filedocumented in this encounter"
--- OUTSIDE RECORDS SUMMARY | ~2019-09-06 | XMS | Encounter Summary ---
Demographics + + + | Address | [address] | | | [place] [address] | + + + | Home Phone [...] [place] | | | | | [address] | | + + + + + Care Team Providers + +------+ + | Care Mechanic Field Service Name | Role | Phone | + +------+ + | Basim Bolanos MD | PCP | | + +------+ + Encounter Details +--------+ + + + + | Date | Type | Department | Care Team | Description | +--------+ + + + + | 03/30/ | Hospital | [facility] | Tyrese Neely MD | | | 2012 | Encounter | MED CTR MP INTRA OP | [address] [place] | | | | | [address] | [address] [place], [place] | | | | | [place], [place] | [address] | | | | | [address] | | | | | | [phone] | | | +--------+ + + + [...] + + + +---------+ + + | [place]-3 Fatty | Take 1,000 mg by | [...] [place] | | | | | | [address] | | | | | | | [...] + | [facility] | [address] | [place] | [phone] | | [facility] | | [address] | | | - LABORATORY | | | | + + + + + | [facility] | [address] | [place] | | | [facility] | | [address] | | | - [...] + | [facility] | [address] | [place], [place] | [phone] | | [facility] | | [address] | | | - LABORATORY | | | | + + + + + | [facility] | [address] | [place], [place] | | | [facility] | | [address] | | | - LABORATORY | | | | + + + + + documented in this encounter Visit Diagnoses Not on filedocumented in this encounter"
--- OUTSIDE RECORDS SUMMARY | ~2019-09-06 | XMS | Encounter Summary ---
Demographics + + + | Address | [address] | | | [place] [address] | + + + | Home Phone [...] [place] | | | | | [address] | | + + + + + Care Team Providers + +------+ + | Care Clay Products Machine Operator Name | Role | Phone [...] + + | 08/15/ | Documentati | [facility] | Katharine Moncada, | Other (urgent | | 2019 | on | CARDIOLOGY [place] | Technologist | report) | | | | [address] | | | | | | [place] | | | | | | [address] | | | | | | [phone] | | | +--------+ + + + [...] [place] | | | | | | [address] | | | | | | | | +--------+---------+ + + + documented as of this encounter Visit Diagnoses Not on filedocumented in this encounter"
--- OUTSIDE RECORDS SUMMARY | ~2019-09-06 | XMS | Encounter Summary ---
Demographics + + + | Address | [address] | | | [place] [address] | + + + | Home Phone [...] [place], [place] | | | | | [address] | | + + + + + Care Team Providers + +------+ + | Care Flatbed Company Driver Name | Role | Phone | + +------+ + PCP | Unavailable | + +------+ + Encounter Details +--------+ + + + + | Date | Type | Department | Care Team | Description | +--------+ + + + + | 07/17/ | Hospital | [facility] | | | | 1997 | Encounter | MED CTR EMERGENCY | | | | | | [address] | | | | | | [place] | | | | | | [address] | | | | | | [phone] | | | +--------+ + + + [...] | | | | | [place] | | | | | | [address] | | | | | | | | +--------+---------+ + + + documented as of this encounter Visit Diagnoses Not on filedocumented in this encounter"
--- OUTSIDE RECORDS SUMMARY | ~2019-09-06 | XMS | Encounter Summary ---
Demographics + + + | Address | [address] | | | [place] [address] | + + + | Home Phone [...] [place], [place] | | | | | [address] | | + + + + + Care Team Providers + +------+ + | Care Doctor Of Naturopathic Medicine Name | Role | Phone | + +------+ + PCP | Unavailable | + +------+ + Encounter Details +--------+ + + + + | Date | Type | Department | Care Team | Description | +--------+ + + + + | 05/23/ | Hospital | [facility] | Dale, Heath E A, | | | 2012 | Encounter | MED CTR XRAY [address] | MD [address] | | | | | [place] | [place] | | | | | [place] [address] | [address] | | | | | [phone] | | | +--------+ + + + [...] + + + +---------+ + + | [place]-3 Fatty | Take 1,000 mg by | [...] [place] | | | | | | [address] | | | | | | | [...] [facility] Diagnostic Imaging Department | [facility] | | [address] [facility] | [facility] | | LUMBAR SPINE MR WITHOUT CONTRAST, [...] Transcribed Date/Time: | | | 05/23/2012 16:55 Mat Machine Operator: <Electronically Signed | | | by Adriano Anne MD> 05/23/12 6915 | | + + + + + | Procedure Note | + + | Manohar Martinez Conversion - 11/30/2013 5:[address] [facility] | | Diagnostic Imaging Department [address] [facility] [place] | | LUMBAR SPINE MR WITHOUT CONTRAST, [...] 16:37 | |Transcribed Date/Time: 05/23/2012 16:55 | |Mat Machine Operator: | |<Electronically Signed by Adriano Anne [...]
--- OUTSIDE RECORDS SUMMARY | ~2019-09-06 | XMS | Encounter Summary ---
Demographics + + + | Address | [address] | | | [place] [address] | + + + | Home Phone [...] [place], [place] | | | | | [address] | | + + + + + [...] + | 01/26/ | Hospital | [facility] | Dale, Heath E A, | | | 2012 | Encounter | MED CTR XRAY [address] | MD [address] | | | | | [place] | [place] | | | | | [place] [address] | [address] | | | | | [phone] | | | +--------+ + + + [...] [place] | | | | | | [address] | | | | | | | [...] Performed At | + + + | [facility] Diagnostic Imaging Department | [facility] | | [address] [facility] | [facility] | | BILATERAL KNEES, THREE VIEWS: [...] Transcribed | | | Date/Time: 01/27/2012 17:18 Polymerization Oven Operator: | | | <Electronically Signed by Willie Perry MD> 01/27/12 1594 | | + + + + + | Procedure Note | + + | Juan, Rad Conversion - 11/30/2013 5:03 PM [facility] | | Diagnostic Imaging Department [address] [place] [address] | | BILATERAL KNEES, THREE VIEWS: 01/27/2012 [...] 17:12 | |Transcribed Date/Time: 01/27/2012 17:18 | |Polymerization Oven Operator: | |<Electronically Signed by Willie Perry MD> 01/27/12 435 | + + + +---------+ + + [...]
--- OUTSIDE RECORDS SUMMARY | ~2019-09-06 | XMS | Encounter Summary ---
Demographics + + + | Address | [address] | | | [place] [address] | + + + | Home Phone [...] [place] | | | | | [address] | | + + + + + Care Team Providers + +------+ + | Care Hydraulic And Plumbing Installer Name | Role | Phone | [...] [address] | | | | | [place], [place] | Shaheen Simons | | | | | [address] | [place] [address] | | | | | [phone] | [phone] | | | | | | | [...] [place] | | | | | | [address] | | | | | | | [...] GIVEN Testing | | | performed at [facility];[address] [place] [address] CULTURE | | | 50,000 TO 100,000 CFU/ML | | | MIXED GRAM POSITIVE HAIDER NO SUSCEPTIBILITY TO FOLLOW | | | MULTIPLE ORGANISM TYPES PRESENT, | | | SUGGESTIVE OF CONTAMINATION OR COLONIZATION. SUGGEST RECOLLECTION FOR | | | CULTURE. Testing | | | performed at [facility];[address] [place] [address];[place] [address] REPORT | | | STATUS 06/08/2012 FINAL [...]
--- OUTSIDE RECORDS SUMMARY | ~2019-09-06 | XMS | Encounter Summary ---
Demographics + + + | Address | [address] | | | [place] [address] | + + + | Home Phone [...] [place] | | | | | [address] | | + + + + + Care Team Providers + +------+ + | Care Freight Handler Name | Role | Phone | [...] [address] | [address] [place], [place] | Hypothyroidism; | | | | [place] | [address] | GERD; BACK PAIN, | | | | [address] | | LUMBAR, WITH | | | | [phone] | | RADICULOPATHY; | | | | [...] [place] | | | | | | [address] | | | | | | | [...]
--- OUTSIDE RECORDS SUMMARY | ~2019-09-06 | XMS | Encounter Summary ---
Demographics + + + | Address | [address] | | | [place] [address] | + + + | Home Phone [...] [place] | | | | | [address] | | + + + + + Care Team Providers + +------+ + | Care Billet Cutter Name | Role | Phone | [...] + + | 08/24/ | Documentati | [facility] | Katharine Moncada, | Other (urgent | | 2019 | on | CARDIOLOGY [place] | Technologist | report) | | | | [address] | | | | | | [place] | | | | | | [address] | | | | | | [phone] | | | +--------+ + + + [...] [place] | | | | | | [address] | | | | | | | | +--------+---------+ + + + documented as of this encounter Visit Diagnoses Not on filedocumented in this encounter"
--- OUTSIDE RECORDS SUMMARY | ~2019-09-06 | XMS | Encounter Summary ---
Demographics + + + | Address | [address] | | | [place] [address] | + + + | Home Phone [...] [place] | | | | | [address] | | + + + + + Care Team Providers + +------+ + | Care Principal Mechanical Engineer Name | Role | Phone | + +------+ + | Basim Bolanos MD | PCP | | + +------+ + Encounter Details +--------+ + + + + | Date | Type | Department | Care Team | Description | +--------+ + + + + | 01/24/ | Abstract | [facility] [place] | [facility], | | | 2012 | | GASTROENTEROLOGY | FOR[place]UN[place]O Thomas [address] | | | | | [address] [place] | [place], [address] | | | | | [address] [place], [place] | [place], [place] | | | | | [address] | [address] | | | | | [phone] | | | +--------+ + + + [...] [place] | | | | | | [address] | | | | | | | | +--------+---------+ + + + documented as of this encounter Visit Diagnoses Not on filedocumented in this encounter"
--- OUTSIDE RECORDS SUMMARY | ~2019-09-06 | XMS | Encounter Summary ---
Demographics + + + | Address | [address] | | | [place] [address] | + + + | Home Phone [...] [place] | | | | | [address] | | + + + + + Care Team Providers + +------+ + | Care Central Office Equipment Engineer Name | Role | Phone | + +------+ + | Natalee Andersen NP | PCP | | + +------+ + Encounter Details +--------+ + + + + | Date | Type | Department | Care Team | Description | +--------+ + + + + | 06/25/ | Hospital | [facility] | Frandy Teresa, | Acquired | | 2014 | Encounter | MED CTR XRAY [address] | DO [address] | spondylolisthesis | | | | [place] | [address] [place], [place] | | | | | [place] [address] | [address] | | | | | [phone] | | | +--------+ + + + [...] + + + +---------+ + + | [place]-3 Fatty | Take 1,000 mg by | [...] [place] | | | | | | [address] | | | | | | | | +--------+---------+ + + + documented as of this encounter Visit Diagnoses + + | Diagnosis | + + | Acquired spondylolisthesis | + + documented in this encounter"
--- OUTSIDE RECORDS SUMMARY | ~2019-09-06 | XMS | Encounter Summary ---
Demographics + + + | Address | [address] | | | [place] [address] | + + + | Home Phone [...] [place] | | | | | [address] | | + + + + + Care Team Providers + +------+ + | Care Dry Goods Inspector Name | Role | Phone | [...] + + | 08/20/ | Documentati | [facility] | Katharine Moncada, | Other (urgent | | 2019 | on | CARDIOLOGY [place] | Technologist | report) | | | | [address] | | | | | | [place] | | | | | | [address] | | | | | | [phone] | | | +--------+ + + + [...] [place] | | | | | | [address] | | | | | | | | +--------+---------+ + + + documented as of this encounter Visit Diagnoses Not on filedocumented in this encounter"
--- OUTSIDE RECORDS SUMMARY | ~2019-09-06 | XMS | Encounter Summary ---
Demographics + + + | Address | [address] | | | [place] [address] | + + + | Home Phone [...] [place] | | | | | [address] | | + + + + + Care Team Providers + +------+ + | Care Beaver Trapper Name | Role | Phone | + [...] [address] | [address] [place], [place] | | | | | [place], [place] | [address] | | | | | [address] | | | | | | [phone] | | | +--------+ + + + [...] | | | | | [place] | | | | | | [address] | | | | | | | | +--------+---------+ + + + documented as of this encounter Visit Diagnoses Not on filedocumented in this encounter"
--- OUTSIDE RECORDS SUMMARY | ~2019-09-06 | XMS | Encounter Summary ---
Demographics + + + | Address | [address] | | | [place] [address] | + + + | Home Phone [...] [place] | | | | | [address] | | + + + + + Care Team Providers + +------+ + | Care Truck Driver Flatbed Name | Role | Phone | + +------+ + | Natalee Andersen NP | PCP | | + +------+ + Encounter Details +--------+ + + + + | Date | Type | Department | Care Team | Description | +--------+ + + + + | 05/02/ | Hospital | [facility] | Frandy Teresa, | Back pain | | 2014 | Encounter | MED CTR XRAY [address] | DO [address] | | | | | [place] | [address] [place] | | | | | [place] [address] | [address] | | | | | [phone] | | | +--------+ + + + [...] | | | | | [place] | | | | | | [address] | | | | | | | [...] + | MISCELLANEOUS LAB | | | [phone] | + +---------+ + + | MISCELANIOUS LAB | | | [phone] | + +---------+ + + documented in this encounter Visit Diagnoses + + | Diagnosis | + + | Back pain Backache, unspecified | + + documented in this encounter"
--- OUTSIDE RECORDS SUMMARY | ~2019-09-06 | XMS | Encounter Summary ---
Demographics + + + | Address | [address] | | | [place] [address] | + + + | Home Phone [...] [place] | | | | | [address] | | + + + + + Care Team Providers + +------+ + | Care Direct Mail Marketer Name | Role | Phone | + +------+ + | Natalee Andersen NP | PCP | | + +------+ + Encounter Details +--------+ + + + + | Date | Type | Department | Care Team | Description | +--------+ + + + + | 07/06/ | Hospital | [facility] | Latricia Feliciano | | | 2014 | Encounter | MED CTR ACUTE | D, PT [address] | | | | | PHYSICAL THERAPY | [place] | | | | | [address] | [address] | | | | | [place] [address] | | | | | | [phone] | | | +--------+ + + + [...] + + + +---------+ + + | [place]-3 Fatty | Take 1,000 mg by | [...] | | | | | [place] [place] | | | | | | [address] | | | | | | | | +--------+---------+ + + + documented as of this encounter Visit Diagnoses Not on filedocumented in this encounter"
--- OUTSIDE RECORDS SUMMARY | ~2019-09-06 | XMS | Encounter Summary ---
Demographics + + + | Address | [address] | | | [place] [address] | + + + | Home Phone | | + + + | Preferred Language | Unknown | + + + | Marital Status | Single | + + + | Caodaism Affiliation | Unknown | + + + [...] [place] | | | | | [address] | | + + + + + Care Team Providers + +------+ + | Care Fish Header Name | Role | Phone | + +------+ + PCP | Unavailable | + +------+ + Encounter Details +--------+ + + + + | Date | Type | Department | Care Team | Description | +--------+ + + + + | 07/03/ | Office | General Internal | Note, Outpatient | Progress Note | | 1996 | Visit-Trans | Medicine [address] | Clinic | | | | [address]abelle | [address] | | | | | | Mailcode: [id number] | | | | | | Outpatient Clinic | | | | | | [address] | | | | | | [place], [place] | | | | | | [address] | | | | | | [phone] | | | +--------+ + + + [...] as of this encounter Progress Notes Interface, Business Continuity Consultant In - 12/11/2006 5:03 AM [facility] DATE: 07/03/97 INFECTIOUS DISEASE [...]
--- OUTSIDE RECORDS SUMMARY | ~2019-09-06 | XMS | Encounter Summary ---
Demographics + + + | Address | [address] | | | [place] [address] | + + + | Home Phone [...] [place], [place] | | | | | [address] | | + + + + + Care Team Providers + +------+ + | Care Splitting Machine Operator Helper Name | Role | Phone | + +------+ + PCP | Unavailable | + +------+ + Encounter Details +--------+ + + + + | Date | Type | Department | Care Team | Description | +--------+ + + + + | 12/27/ | Hospital | [facility] | | | | 1997 | Encounter | MED CTR EMERGENCY | | | | | | [address] | | | | | | [place] | | | | | | [address] | | | | | | [phone] | | | +--------+ + + + [...] | | | | | [place] | | | | | | [address] | | | | | | | | +--------+---------+ + + + documented as of this encounter Visit Diagnoses Not on filedocumented in this encounter"
--- OUTSIDE RECORDS SUMMARY | ~2019-09-06 | XMS | Encounter Summary ---
Demographics + + + | Address | [address] | | | [place] [address] | + + + | Home Phone [...] [place] | | | | | [address] | | + + + + + Care Team Providers + +------+ + | Care Rib Bender Name | Role | Phone | + [...] + + | 06/27/ | Office | [facility] | Yecenia Richardson, | Hypertension, | | 2019 | Visit | CARDIOLOGY [place] | MD Nitin RODRIGUES | unspecified type | | | | [address] | [place], [place] | (Primary Dx); | | | | KEV SCHAF[facility] | [address] | Bradycardia | | | | [place] | | | | | | [address] | | | | | | [phone] | | | +--------+---------+ + + + [...] urgent basis. [facility] an appointment [facility]. She has been feeling dizzy [...] Take by mouth. Blood Glucose Monitoring Suppl ([employer] VERIO FLEX SYSTEM) w/Device KIT by Does [...] mg by mouth Daily. Cholecalciferol (VITAMIN D-3) 36461 units CAPS Take 50,000 Units by mouth [...] tablet Take 10 mg by mouth nightly. [place]-3 Fatty Acids (FISH OIL CONCENTRATE) 1000 MG [...] | | | | | | [place] [facility] [place]NOTE 2[place] | | | | | | [address] | | | | | | | [...]
--- OUTSIDE RECORDS SUMMARY | ~2019-09-06 | XMS | Encounter Summary ---
Demographics + + + | Address | [address] | | | [place] [address] | + + + | Home Phone [...] [place] | | | | | [address] | | + + + + + Care Team Providers + +------+ + | Care Test Automation Architect Name | Role | Phone | [...] + | 11/25/ | Telephone | [facility] | Frandy Teresa, | Medication Refill | | 2015 | | NEUROSURGERY [address] | DO [address] | Assistance | | | | [address] [address] | [place] [address] [place], [place] | | | | | [place], [place] | [address] | | | | | [address] | | | | | | [phone] | | | +--------+ + + + [...] | | | | | [place] | | | | | | [address] | | | | | | | | +--------+---------+ + + + documented as of this encounter Visit Diagnoses Not on filedocumented in this encounter"
--- OUTSIDE RECORDS SUMMARY | ~2019-09-06 | XMS | Encounter Summary ---
Demographics + + + | Address | [address] | | | [place] [address] | + + + | Home Phone [...] [place] | | | | | [address] | | + + + + + Care Team Providers + +------+ + | Care Desktop Support Associate Name | Role | Phone [...] + + | 08/16/ | Telephone | [facility] | Ashley Chávez | Other (Called to | | 2018 | | CARDIOLOGY [place] | Pollo, Relief Salesperson | tell patient what | | | | [address] | | Nicholas said. ) | | | | [address] | | | | | | [place] | | | | | | [address] | | | | | | [phone] | | | +--------+ + + + [...] [place] | | | | | | [address] | | | | | | | | +--------+---------+ + + + documented as of this encounter Visit Diagnoses Not on filedocumented in this encounter"
--- OUTSIDE RECORDS SUMMARY | ~2019-09-06 | XMS | Encounter Summary ---
Demographics + + + | Address | [address] | | | [place] [address] | + + + | Home Phone [...] [place] | | | | | [address] | | + + + + + Care Team Providers + +------+ + | Care Department Store Door Greeter Name | Role | Phone | + [...] + + | 03/03/ | Telephone | [facility] | Baudilio Newman | Other (Results) | | 2014 | | NEUROLOGY LAURIE | MD Pollo Need updated | | | | | [address], | address | | | | | [address] [place] | | | | | | [place] [address] | | | | | | [phone] | | | +--------+ + + + [...] [place] | | | | | | [address] | | | | | | | | +--------+---------+ + + + documented as of this encounter Visit Diagnoses Not on filedocumented in this encounter"
--- OUTSIDE RECORDS SUMMARY | ~2019-09-06 | XMS | Encounter Summary ---
Demographics + + + | Address | [address] | | | [place] [address] | + + + | Home Phone [...] [place] | | | | | [address] | | + + + + + Care Team Providers + +------+ + | Care Director Case Management Name | Role | Phone [...] + | 07/15/ | Telephone | [facility] | Russell Alfaro PA | Other | | 2016 | | SLEEP DISORDER [address] | [address] | | | | | [address] [place] | [place] [facility], [place] | | | | | [place] [address] | [address] | | | | | [phone] | | | +--------+ + + + [...] [place] | | | | | | [address] | | | | | | | | +--------+---------+ + + + documented as of this encounter Visit Diagnoses Not on filedocumented in this encounter"
--- OUTSIDE RECORDS SUMMARY | ~2019-09-06 | XMS | Encounter Summary ---
Demographics + + + | Address | [address] | | | [place] [address] | + + + | Home Phone [...] [place], [place] | | | | | [address] | | + + + + + Care Team Providers + +------+ + | Care Angiographer Name | Role | Phone | + +------+ + PCP | Unavailable | + +------+ + Encounter Details +--------+ + + + + | Date | Type | Department | Care Team | Description | +--------+ + + + + | 03/11/ | [facility] | [facility] | Deon Gonzales | | | 2005 | Encounter | MED CTR SLEEP | MD Laureano [address] | | | | | [place] [address] | [place] | | | | | [place], [place] | [place] [address] | | | | | [address] | [phone] | | | | | [phone] | | | +--------+ + + + [...] [place] | | | | | | [address] | | | | | | | | +--------+---------+ + + + documented as of this encounter Visit Diagnoses Not on filedocumented in this encounter"
--- OUTSIDE RECORDS SUMMARY | ~2019-09-06 | XMS | Encounter Summary ---
Demographics + + + | Address | [address] | | | [place] [address] | + + + | Home Phone [...] [place], [place] | | | | | [address] | | + + + + + Care Team Providers + +------+ + | Care Tag Meter Operator Name | Role | Phone | + +------+ + PCP | Unavailable | + +------+ + Encounter Details +--------+ + + + + | Date | Type | Department | Care Team | Description | +--------+ + + + + | 02/24/ | Hospital | [facility] | | | | 1997 | Encounter | MED CTR EMERGENCY | | | | | | [address] | | | | | | [place] | | | | | | [address] | | | | | | [phone] | | | +--------+ + + + [...] | | | | [place] | | | | | | [address] | | | | | | | | +--------+---------+ + + + documented as of this encounter Visit Diagnoses Not on filedocumented in this encounter"
--- OUTSIDE RECORDS SUMMARY | ~2019-09-06 | XMS | Encounter Summary ---
Demographics + + + | Address | [address] | | | [place] [address] | + + + | Home Phone [...] [place] | | | | | [address] | | + + + + + Care Team Providers + +------+ + | Care Fixture Repairer Fabricator Name | Role | Phone | [...] | | | | | | | [address] | | | | | | | Phone: | | | | | | | [phone] | | | | | | | Fax: | | | | | | | [phone] | | +--------+--------+ + + + + Encounter Details +--------+---------+ + + + | Date | Type | Department | Care Team | Description | +--------+---------+ + + + | 02/27/ | Office | [facility] | Baudilio Newman | Neuropathy (Primary | | 2015 | Visit | NEUROLOGY LAURIE | MD Pollo Need updated | Dx); Sleep apnea; | | | | [address] [facility], | address | Stroke (HCC); | | | | [address] [place] | | Thyroid disease | | | | [place] [address] | | | | | | [phone] | | | +--------+---------+ + + + [...] supply of blood, brain tissue quickly dies. [id number] [employer] [address] [place] [address], [place] [address]. All righ ts reserved. This information is not intended as a substitute for professional medical care. Always follow your healthcare professional's instructions. documented in this encounter Progress Notes Baudilio Newman MD - 02/27/2015 10:31 AM PDTFormatting of this note might be differen t from the original. Baudilio Newman MD [address] [facility] [place], [address] [place] [address] Neurology Outpatient New Patient Note Referring Provider: [...] history. Notes from her recent hospitalization at [place] were reviewed in detail. Ms. Arndt started feeling off in the evening of 02/01. She felt dizzy and laid down to slee p. Upon waking, she felt her right side was numb. She tried to get up to go to the bathroom and realized she was weak as well on the right. She was taken to [facility] where she was diagnosed with a [...] systol ically. She was reevaluated in the [facility] for one such event and her [...] hospitalization . This specimen was characterized at [facility], but the report is not currently [...] Location: [facility] MAIN OR Current Medications: Outpatient Medications [...] tablet Take 15 mg by mouth nightly. [place]-3 Fatty Acids (FISH OIL CONCENTRATE) 1000 MG [...] BMI 46.04 kg /m2 Neck Circumference: 14" [place] Sleepiness Scale: 2 General: well developed and [...] Romberg test negative Radiographic Review: CTA from [place] reviewed on iSITE. No significant stenoses seen [...] No results found for this basename: hba1c, rkg2ugh, ldl, ldldirect, ldlext, dldlex Lab Results Component [...] | | | | | [place], [place] | | | | | | [id number] | | | | | | | [...]
--- OUTSIDE RECORDS SUMMARY | ~2019-09-06 | XMS | Encounter Summary ---
Demographics + + + | Address | [address] | | | [place] [address] | + + + | Home Phone [...] [place] | | | | | [address] | | + + + + + Care Team Providers + +------+ + | Care Bead Inspector Name | Role | Phone | [...] | | | | | [address] | [place], [place] | | | | | [place], [place] | [address] | | | | | [address] | | | | | | [phone] | | | +--------+ + + + [...] [place] | | | | | | [address] | | | | | | | | +--------+---------+ + + + documented as of this encounter Visit Diagnoses Not on filedocumented in this encounter"
--- OUTSIDE RECORDS SUMMARY | ~2019-09-06 | XMS | Encounter Summary ---
Demographics + + + | Address | [address] | | | [place] [address] | + + + | Home Phone [...] [place] | | | | | [address] | | + + + + + Care Team Providers + +------+ + | Care Sales Development Associate Name | Role | Phone [...] + + | 08/21/ | Documentati | [facility] | Katharine Moncada, | Other (urgent | | 2019 | on | CARDIOLOGY [place] | Technologist | report) | | | | [address] | | | | | | [place] | | | | | | [address] | | | | | | [phone] | | | +--------+ + + + [...] [place] | | | | | | [address] | | | | | | | | +--------+---------+ + + + documented as of this encounter Visit Diagnoses Not on filedocumented in this encounter"
--- OUTSIDE RECORDS SUMMARY | ~2019-09-06 | XMS | Encounter Summary ---
Demographics + + + | Address | [address] | | | [place] [address] | + + + | Home Phone [...] [place] | | | | | [address] | | + + + + + Care Team Providers + +------+ + | Care Burr Picker Name | Role | Phone | [...] | SLEEP DISORDER [address] | [address] | | | | | [address] [place] | [place], [place] | | | | | [place] [address] | [address] | | | | | [phone] | | | +--------+ + + + [...] | | | | | [place] [address] [address] | | | | | | [address] | | | | | | | | +--------+---------+ + + + documented as of this encounter Visit Diagnoses Not on filedocumented in this encounter"
--- OUTSIDE RECORDS SUMMARY | ~2019-09-06 | XMS | Encounter Summary ---
Demographics + + + | Address | [address] | | | [place] [address] | + + + | Home Phone [...] [place], [place] | | | | | [address] | | + + + + + Care Team Providers + +------+ + | Care Mechanical Specialist Name | Role | Phone | + +------+ + PCP | Unavailable | + +------+ + Encounter Details +--------+ + + + + | Date | Type | Department | Care Team | Description | +--------+ + + + + | 04/16/ | Hospital | [facility] | | | | 1997 | Encounter | MED CTR XRAY [address] | | | | | | [place] | | | | | | [place] [address] | | | | | | [phone] | | | +--------+ + + + [...] | | | | | [place] | | | | | | [address] | | | | | | | | +--------+---------+ + + + documented as of this encounter Visit Diagnoses Not on filedocumented in this encounter"
--- OUTSIDE RECORDS SUMMARY | ~2019-09-06 | XMS | Encounter Summary ---
Demographics + + + | Address | [address] | | | [place] [address] | + + + | Home Phone [...] [place] | | | | | [address] | | + + + + + Care Team Providers + +------+ + | Care Backbreaker Name | Role | Phone | + [...] [id number] | | | | | | [place], [place] | | | | | | [address] | | | | | | [phone] | | | +--------+ + + + [...] [facility] | [address] | [place] [address] | | | PATHOLOGY | [address] [...] Re | | | | | | [address] | | | | + + + + + + + + | Specimen | + + | | + + + + + + + | Performing | Address | City/State/Zipcode | Phone Number | | Organization | | | | + + + + + | [facility] | [address] | [place] [address] | | | PATHOLOGY | [address] [...] Re | | | | | | [address] | | | | + + + + + + + + | Specimen | + + | | + + + + + + + | Performing | Address | City/State/Zipcode | Phone Number | | Organization | | | | + + + + + | [facility] | [address] | [place] [address] | | | PATHOLOGY | [address] [...] Re | | | | | | [address]37[address] | | | | + + + + + + + + | Specimen | + + | | + + + + + + + | Performing | Address | City/State/Zipcode | Phone Number | | Organization | | | | + + + + + | [facility] | [address] | [place] [address] | | | PATHOLOGY | [address] [...] Re | | | | | | [address] | | | | + + + + + + + + | Specimen | + + | | + + + + + + + | Performing | Address | City/State/Zipcode | Phone Number | | Organization | | | | + + + + + | [facility] | [address] | [place] [address] | | | PATHOLOGY | [address] | | | + + + + + documented in this encounter Visit Diagnoses Not on filedocumented in this encounter"
--- OUTSIDE RECORDS SUMMARY | ~2019-09-06 | XMS | Encounter Summary ---
Demographics + + + | Address | [address] | | | [place] [address] | + + + | Home Phone [...] [place] | | | | | [address] | | + + + + + Care Team Providers + +------+ + | Care Ship Joiner Name | Role | Phone | [...] | | | | | Procedures | WORKERS COMPENSATION ATTORNEY [address] | [address] | | | | | IN OFFICE | | [place] [address] | | | | | CONSULTATION | [address] | [place] | | | | | NEW/ESTAB | [facility], | [address] Phone: | | | | | PATIENT 60 | [place] [address] | [phone] | | | | | MIN | Phone: | Fax: | | | | | | [phone] | [phone] | | | | | | Fax: | | | | | | | [phone] | | +--------+--------+ + + + + Encounter Details +--------+---------+ + + + | Date | Type | Department | Care Team | Description | +--------+---------+ + + + | 05/02/ | Office | [facility] | Frandy Teresa, | Spondylolisthesis of | | 2013 | Visit | NEUROSURGERY [address] | DO [address] | lumbar region | | | | [address] | [place] [address] [place], [place] | (Primary Dx); Lumbar | | | | [place], [place] | [id number] | stenosis; Lumbar | | | | [address] | | radicular pain; | | | | [phone] | | Lumbago | +--------+---------+ + + [...] the original. Frandy Teresa DO [address] [facility] [place] [address] FAX: NEUROSURGERY HISTORY AND PHYSICAL EXAMINATION CHIEF [...] Take 15 mg by mouth nightl y. [place]-3 Fatty Acids (FISH OIL CONCENTRATE) 1000 MG [...] has no apparent deficits with short or remote computer terminal operator memory. CRANIAL NERVES: II: Acuity [...] Intrinsics 5 5 Ulnar Intrinsics 5 5 Pulp Roller Strength 5 5 Hip Flexion 5 4* [...] | | | | | [place] | | | | | | [address] | | | | | | | [...]
--- OUTSIDE RECORDS SUMMARY | ~2019-09-06 | XMS | Encounter Summary ---
Demographics + + + | Address | [address] | | | [place] [address] | + + + | Home Phone [...] [place] | | | | | [address] | | + + + + + Care Team Providers + +------+ + | Care Cytology Technologist Name | Role | Phone | [...] | Services | ogy | Epigastric | [facility], | Tyrese Shelley MD | | | Required | | abdominal | [place], | [address], | | | | | pain GERD | GEODESY TEACHER [address] | [address] | | | | | (gastroesoph | [address], [address] | [place], | | | | | ageal reflux | [address] [place] | [place] [address] | | | | | disease) | [place], [place] | Phone: | | | | | Fatty liver | [address] | [phone] | | | | | DM | Phone: | Fax: | | | | | (diabetes | [phone] | [phone] | | | | | mellitus) | Fax: | | | | | | (HCC) | [phone] | | +--------+ + + + + [...] | Office | [facility] | [facility], | Epigastric abdominal | | 2012 | Visit | GASTROENTEROLOGY | FORTUNATO Thomas [address] | pain (Primary Dx); | | | | [address] | [address] | GERD | | | | [address] [place], [place] | [place], [place] | (gastroesophageal | | | | [address] | [address] | reflux disease); | | | | [phone] | | Fatty liver; DM | | [...] years ago by Dr. Saravanan Tsai, in [facility], [place]. Colonoscopy was done 05/[address] Hamlin in [facility], [place]. Allergies Allergen Reactions Demerol Duloxetine Erythromycin [...] | | | | | [address] [place], [place] | | | | | | [id number] | | | | | | | [...]
--- OUTSIDE RECORDS SUMMARY | ~2019-09-06 | XMS | Encounter Summary ---
Demographics + + + | Address | [address] | | | [place] [address] | + + + | Home Phone [...] [place] | | | | | [address] | | + + + + + Care Team Providers + +------+ + | Care Data Center Architect Name | Role | Phone | [...] + | 07/29/ | Telephone | [facility] | Frandy Teresa, | Other (multiple | | 2013 | | NEUROSURGERY [address] | DO [address] | questions) | | | | [address] [address] | [place] [address] [place], [place] | | | | | [place], [place] | [address] | | | | | [address] | | | | | | [phone] | | | +--------+ + + + [...] | | | | | [place] | | | | | | [address] | | | | | | | | +--------+---------+ + + + documented as of this encounter Visit Diagnoses Not on filedocumented in this encounter"
--- OUTSIDE RECORDS SUMMARY | ~2019-09-06 | XMS | Encounter Summary ---
Demographics + + + | Address | [address] | | | [place] [address] | + + + | Home Phone [...] [place] | | | | | [address] | | + + + + + Care Team Providers + +------+ + | Care Box Liner Name | Role | Phone | [...] | | | | | | | [address] | | | | | | | Phone: | | | | | | | [phone] | | | | | | | Fax: | | | | | | | [phone] | | +--------+ + + + + + Reason for Visit + + + | Reason | Comments | + + + | Follow-up | 3 mo po | + + + Encounter Details +--------+---------+ + + + | Date | Type | Department | Care Team | Description | +--------+---------+ + + + | 09/27/ | Office | [facility] | Frandy Teresa, | Lumbar spondylosis | | 2013 | Visit | NEUROSURGERY [address] | DO [address] | (Primary Dx); S/P | | | | [address] | [place] [address] [place], [place] | lumbar fusion | | | | [place], [place] | [address] | | | | | [address] | | | | | | [phone] | | | +--------+---------+ + + + [...] [facility] [address] [place] [address] FAX: NEUROSURGERY FOLLOW-UP CHIEF COMPLAINT: Chief Complaint [...] Surgeon: Frandy castellanos DO; Location: [facility] MAIN OR CURRENT MEDICATIONS: Current Outpatient Prescriptions [...] Take 15 mg by mouth nightl y. [place]-3 Fatty Acids (FISH OIL CONCENTRATE) 1000 MG [...] | | | | | [place], [place] | | | | | | [address] | | | | | | | [...]
--- OUTSIDE RECORDS SUMMARY | ~2019-09-06 | XMS | Encounter Summary ---
Demographics + + + | Address | [address] | | | [place] [address] | + + + | Home Phone [...] [place], [place] | | | | | [address] | | + + + + + Care Team Providers + +------+ + | Care Direct Sales Consultant Name | Role | Phone | + +------+ + PCP | Unavailable | + +------+ + Encounter Details +--------+ + + + + | Date | Type | Department | Care Team | Description | +--------+ + + + + | 02/24/ | Hospital | [facility] | | | | 1997 | Encounter | MED CTR EMERGENCY | | | | | | [address] | | | | | | [place] | | | | | | [address] | | | | | | [phone] | | | +--------+ + + + [...] | | | | | [place] | | | | | | [address] | | | | | | | | +--------+---------+ + + + documented as of this encounter Visit Diagnoses Not on filedocumented in this encounter"
--- OUTSIDE RECORDS SUMMARY | ~2019-09-06 | XMS | Encounter Summary ---
Demographics + + + | Address | [address] | | | [place] [address] | + + + | Home Phone [...] [place] | | | | | [address] | | + + + + + Care Team Providers + +------+ + | Care Lining Stamper Name | Role | Phone | + [...] + + | 08/14/ | Documentati | [facility] | Katharine Moncada, | Other (urgent | | 2019 | on | CARDIOLOGY [place] | Technologist | report) | | | | [address] | | | | | | [place] | | | | | | [address] | | | | | | [phone] | | | +--------+ + + + [...] [place] | | | | | | [address] | | | | | | | | +--------+---------+ + + + documented as of this encounter Visit Diagnoses Not on filedocumented in this encounter"
--- OUTSIDE RECORDS SUMMARY | ~2019-09-06 | XMS | Encounter Summary ---
Demographics + + + | Address | [address] | | | [place] [address] | + + + | Home Phone [...] [place] | | | | | [address] | | + + + + + Care Team Providers + +------+ + | Care Truck And Transport Mechanic Name | Role | Phone | [...] | 12/03/ | Refill | [facility] | Frandy Teresa, | Medication Refill | | 2014 | | NEUROSURGERY [address] | DO [address] | | | | | [address] | [address] [address] [place], [place] | | | | | [place], [place] | [id number] | | | | | [address] | | | | | | [phone] | | | +--------+--------+ + + + [...] | | | | | [place] | | | | | | [address] | | | | | | | | +--------+---------+ + + + documented as of this encounter Visit Diagnoses Not on filedocumented in this encounter"
--- OUTSIDE RECORDS SUMMARY | ~2019-09-06 | XMS | Encounter Summary ---
Demographics + + + | Address | [address] | | | [place] [address] | + + + | Home Phone [...] [place] | | | | | [address] | | + + + + + Care Team Providers + +------+ + | Care Reports Analyst Name | Role | Phone | [...] [address] | [address] [place], [place] | | | | | [place], [place] | [id number] | | | | | [address] | | | | | | [phone] | | | +--------+ + + + [...] | | | | | [place] | | | | | | [address] | | | | | | | | +--------+---------+ + + + documented as of this encounter Visit Diagnoses Not on filedocumented in this encounter"
--- OUTSIDE RECORDS SUMMARY | ~2019-09-06 | XMS | Encounter Summary ---
Demographics + + + | Address | [address] | | | [place] [address] | + + + | Home Phone [...] [place], [place] | | | | | [address] | | + + + + + Care Team Providers + +------+ + | Care Film Historian Name | Role | Phone | + +------+ + PCP | Unavailable | + +------+ + Encounter Details +--------+ + + + + | Date | Type | Department | Care Team | Description | +--------+ + + + + | 12/22/ | Hospital | [facility] | | | | 1993 - | Encounter | MED CTR GENERIC PSY | | | | | | CONV DEPT [address] | | | | 12/25/ | | [place], | | | | 1993 | | [place] [address] | | | | | | [phone] | | | +--------+ + + + [...] [place] | | | | | | [address] | | | | | | | | +--------+---------+ + + + documented as of this encounter Visit Diagnoses Not on filedocumented in this encounter"
--- OUTSIDE RECORDS SUMMARY | ~2019-09-06 | XMS | Encounter Summary ---
Demographics + + + | Address | [address] | | | [place] [address] | + + + | Home Phone [...] [place], [place] | | | | | [address] | | + + + + + Care Team Providers + +------+ + | Care Accounting Technician Name | Role | Phone | + +------+ + PCP | Unavailable | + +------+ + Encounter Details +--------+ + + + + | Date | Type | Department | Care Team | Description | +--------+ + + + + | 02/28/ | Hospital | [facility] | Deon Gonzales | | | 2011 | Encounter | MED CTR SLEEP | MD [place] | | | | | [place] [address] | [place] | | | | | [place], [place] | [place] [address] | | | | | [address] | [phone] | | | | | [phone] | | | +--------+ + + + [...] [place] | | | | | | [address] | | | | | | | | +--------+---------+ + + + documented as of this encounter Visit Diagnoses Not on filedocumented in this encounter"
--- OUTSIDE RECORDS SUMMARY | ~2019-09-06 | XMS | Encounter Summary ---
Demographics + + + | Address | [address] | | | [place] [address] | + + + | Home Phone [...] [place], [place] | | | | | [address] | | + + + + + Care Team Providers + +------+ + | Care Rehab Nursing Tech Name | Role | Phone | [...] | | | | 1996 | | [place] [address] | | | | | | [phone] | | | +--------+ + + + [...] [place] | | | | | | [address] | | | | | | | | +--------+---------+ + + + documented as of this encounter Visit Diagnoses Not on filedocumented in this encounter"
--- OUTSIDE RECORDS SUMMARY | ~2019-09-06 | XMS | Encounter Summary ---
Demographics + + + | Address | [address] | | | [place] [address] | + + + | Home Phone [...] [place] | | | | | [address] | | + + + + + Care Team Providers + +------+ + | Care Production Line Manager Name | Role | Phone [...] + + | 07/06/ | Emergency | [facility] | Yunior [place], | Chest pain, | | 2014 | | MED CTR EMERGENCY | MD [address] | unspecified chest | | | | CENTER [address] | [place], [place] | pain type (Primary | | | | [place], [place] | [address] | Dx) | | | | [address] | | | | | | [phone] | | | +--------+ + + + [...] sent through Care Everywhere.CHEST PAIN, NON CARDIAC (SPANISH)documented in this encounter Medications at Time of [...] 0 | | | | (VITAMIN D-3) [address] | mouth Once a week. | | [...] | | | | | | | ([facility]) | | | | | [...] + + + +---------+ + + | [place]-3 Fatty | Take 1,000 mg by [...] [place] | | | | | | [address] | | | | | | | [...] [address] | [place] | [phone] | | [facility] | | [address] | | | - LABORATORY | | [...] [address] | [place] | [phone] | | [facility] | | [address] | | | - LABORATORY | | [...] | | | | | | [employer] | | | | | [...] + + | Performing | Address | City/State/[facility] | Phone Number | | Organization | | | | + + + + + | [facility] | [address] | [place] | [phone] | | [facility] | | [address] | | | - LABORATORY | | [...] mL/min/1.73m2 | [facility] | | | [place]RA[place]IAN | RATE,ESTIMATED | | MEDICAL | | | | mL/min/1.57j4Wlux than | | CENTER - | | [...] [address] | [place] | [phone] | | [facility] | | [address] | | | - LABORATORY | | [...] ST. | [address] | [place] | [phone] | | [facility] | | [address] | | | - LABORATORY | | [...] | | | | MD NAZARIO JON ([id number]) | | | | | | on [...]
--- OUTSIDE RECORDS SUMMARY | ~2019-09-06 | XMS | Encounter Summary ---
Demographics + + + | Address | [address] | | | [place] [address] | + + + | Home Phone [...] [place] | | | | | [address] | | + + + + + Care Team Providers + +------+ + | Care Energy Infrastructure Engineer Name | Role | Phone [...] + + | 08/15/ | Documentati | [facility] | Katharine Moncada, | Other (urgent | | 2019 | on | CARDIOLOGY [place] | Technologist | report) | | | | [address] | | | | | | [place] | | | | | | [address] | | | | | | [phone] | | | +--------+ + + + [...] [place] | | | | | | [address] | | | | | | | | +--------+---------+ + + + documented as of this encounter Visit Diagnoses Not on filedocumented in this encounter"
--- OUTSIDE RECORDS SUMMARY | ~2019-09-06 | XMS | Encounter Summary ---
Demographics + + + | Address | [address] | | | [place] [address] | + + + | Home Phone [...] [place] | | | | | [address] | | + + + + + Care Team Providers + +------+ + | Care Data Entry Clerk Name | Role | Phone [...] | [address] | [place], [place] | (Primary Dx); | | | | WAY [place] | [address] | Essential | | | | [place] | | hypertension; | | | | [address] | | Irregular heartbeat | | | | [phone] | | | +--------+---------+ + + + [...] [place] DO - 07/19/2019 10:40 AM PDT [facility] Cardiology Cardiology Follow Up Note Reason [...] by mouth daily. Blood Glucose Monitoring Suppl ([employer] VERIO FLEX SYSTEM) w/Device KIT by Does not ap ply route. budesonide-formoterol (SYMBICORT) 160-4.5 MCG/ACT inhaler Inhale 2 puffs into the lungs 2 (two) times daily. Calcium Carbonate Antacid 1000 MG tablet Take 1,000 mg by mouth 3 (three) times daily. Cholecalciferol (VITAMIN D3) 78566 units CAPS Take by mouth once a [...] [place] | | | | | | [address] | | | | | | | [...]
--- OUTSIDE RECORDS SUMMARY | ~2019-09-06 | XMS | Encounter Summary ---
Demographics + + + | Address | [address] | | | [place] [address] | + + + | Home Phone [...] [place], [place] | | | | | [address] | | + + + + + Care Team Providers + +------+ + | Care Mold Blower Name | Role | Phone | + +------+ + PCP | Unavailable | + +------+ + Encounter Details +--------+ + + + + | Date | Type | Department | Care Team | Description | +--------+ + + + + | 12/06/ | Hospital | [facility] | | | | 1994 | Encounter | MED CTR LABORATORY | | | | | | [address] | | | | | | [place] | | | | | | [address] | | | | | | [phone] | | | +--------+ + + + [...] | | | | | | [facility] [place] | | | | | | [address] | | | | | | | | +--------+---------+ + + + documented as of this encounter Visit Diagnoses Not on filedocumented in this encounter"
--- OUTSIDE RECORDS SUMMARY | ~2019-09-06 | XMS | Encounter Summary ---
Demographics + + + | Address | [address] | | | [place] [address] | + + + | Home Phone [...] [place] | | | | | [address] | | + + + + + Care Team Providers + +------+ + | Care Inside Sales Executive Name | Role | Phone [...] [address] | [address] [place], [place] | | | | | [place], [place] | [id number] | | | | | [address] | | | | | | [phone] | | | +--------+--------+ + + + [...] | | | | | [place] | | | | | | [address] | | | | | | | | +--------+---------+ + + + documented as of this encounter Visit Diagnoses Not on filedocumented in this encounter"
--- OUTSIDE RECORDS SUMMARY | ~2019-09-06 | XMS | Encounter Summary ---
Demographics + + + | Address | [address] | | | [place] [address] | + + + | Home Phone [...] [place] | | | | | [address] | | + + + + + Care Team Providers + +------+ + | Care Developer Programmer Analyst Name | Role | Phone [...] [place] | | | | | | [address] | | | | | | [phone] | | | +--------+ + + + [...] [place] | | | | | | [address] | | | | | | | | +--------+---------+ + + + documented as of this encounter Visit Diagnoses Not on filedocumented in this encounter"
--- OUTSIDE RECORDS SUMMARY | ~2019-09-06 | XMS | Encounter Summary ---
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 ) | | | | [place] | | | | | | [address] | | | | | | [phone] | | | +--------+ + + + [...] [place] | | | | | | [id number] | | | | | | | | +--------+---------+ + + + documented as of this encounter Visit Diagnoses Not on filedocumented in this encounter"
--- OUTSIDE RECORDS SUMMARY | ~2019-09-06 | XMS | Encounter Summary ---
Demographics + + + | Address | [address] | | | [place] [address] | + + + | Home Phone [...] [place] | | | | | [address] | | + + + + + Care Team Providers + +------+ + | Care Sterile Processing Technologist Name | Role | Phone | [...] + | 07/19/ | Telephone | [facility] | Frandy Teresa, | Appointment | | 2013 | | NEUROSURGERY [address] | DO [address] | | | | | [address] | [address] [place], [place] | | | | | [place], [place] | [address] | | | | | [address] | | | | | | [phone] | | | +--------+ + + + [...] [place] | | | | | | [address] | | | | | | | | +--------+---------+ + + + documented as of this encounter Visit Diagnoses Not on filedocumented in this encounter"
--- OUTSIDE RECORDS SUMMARY | ~2019-09-06 | XMS | Encounter Summary ---
Demographics + + + | Address | [address] | | | [place] [address] | + + + | Home Phone [...] [place], [place] | | | | | [address] | | + + + + + Care Team Providers + +------+ + | Care Internet Marketing Assistant Name | Role | Phone | + +------+ + PCP | Unavailable | + +------+ + Encounter Details +--------+ + + + + | Date | Type | Department | Care Team | Description | +--------+ + + + + | 08/21/ | Hospital | [facility] | | | | 1996 | Encounter | MED CTR LABORATORY | | | | | | [address] | | | | | | [place] | | | | | | [address] | | | | | | [phone] | | | +--------+ + + + [...] | | | | | [place] | | | | | | [address] | | | | | | | | +--------+---------+ + + + documented as of this encounter Visit Diagnoses Not on filedocumented in this encounter"
--- OUTSIDE RECORDS SUMMARY | ~2019-09-06 | XMS | Encounter Summary ---
Demographics + + + | Address | [address] | | | [place] [address] | + + + | Home Phone [...] [place], [place] | | | | | [address] | | + + + + + Care Team Providers + +------+ + | Care Pathology Manager Name | Role | Phone | + +------+ + PCP | Unavailable | + +------+ + Encounter Details +--------+ + + + + | Date | Type | Department | Care Team | Description | +--------+ + + + + | 06/19/ | Hospital | [facility] | | | | 1991 - | Encounter | MED CTR GENERIC PSY | | | | | | CONV DEPT [address] | | | | 06/24/ | | [place], | | | | 1991 | | [place] [address] | | | | | | [phone] | | | +--------+ + + + [...] [place] | | | | | | [address] | | | | | | | | +--------+---------+ + + + documented as of this encounter Visit Diagnoses Not on filedocumented in this encounter"
--- OUTSIDE RECORDS SUMMARY | ~2019-09-06 | XMS | Encounter Summary ---
Demographics + + + | Address | [address] | | | [place] [address] | + + + | Home Phone [...] [place] | | | | | [address] | | + + + + + Care Team Providers + +------+ + | Care Tile Finisher Name | Role | Phone | + +------+ + PCP | Unavailable | + +------+ + Encounter Details +--------+ + + + + | Date | Type | Department | Care Team | Description | +--------+ + + + + | 07/03/ | Office | General Internal | Note, Outpatient | Progress Note | | 1996 | Visit-Trans | Medicine [address] | Clinic | | | | isabelle | [address] | | | | | | Mailcode: L475 | | | | | | Outpatient Clinic | | | | | | [address] | | | | | | [place], [place] | | | | | | [address] | | | | | | [phone] | | | +--------+ + + + [...] as of this encounter Progress Notes Interface, Global Compensation Director In - 12/11/2006 5:03 AM [facility] DATE: 07/03/97 INFECTIOUS DISEASE CLINIC: [...]
--- OUTSIDE RECORDS SUMMARY | ~2019-09-06 | XMS | Encounter Summary ---
Demographics + + + | Address | [address] | | | [place] [address] | + + + | Home Phone [...] [place] | | | | | [address] | | + + + + + [...] | Services | ogy | Epigastric | [facility], | Tyrese Shelley MD | | | Required | | abdominal | [place], | [address] [place], | | | | | pain GERD | PCTS [address] | [address] | | | | | (gastroesoph | [place], [place] | [place], | | | | | ageal reflux | [address] [place] | [place] [address] | | | | | disease) | [place], [place] | Phone: | | | | | Fatty liver | [address] | [phone] | | | | | DM | Phone: | Fax: | | | | | (diabetes | [phone] | [phone] | | | | | mellitus) | Fax: | | | | | | (HCC) | [phone] | | +--------+ + + + + + Reason for Visit + + + | Reason | Comments | + + + | Gastroesophageal | epigastric pain | | Reflux | | + + + Encounter Details +--------+---------+ + + + | Date | Type | Department | Care Team | Description | +--------+---------+ + + + | 03/06/ | Office | [facility] | [facility], | Epigastric abdominal | | 2012 | Visit | GASTROENTEROLOGY | FORTUNATO Thomas [address] | pain (Primary Dx); | | | | [address] | [place], [address] | GERD | | | | [address] [place], [place] | [place], [place] | (gastroesophageal | | | | [address] | [address] | reflux disease); | | | | [phone] | | Fatty liver; DM | | [...] ago by Dr. Saravanan Tsai, in [facility]. Colonoscopy was done 05/[address] Hamlin in [facility]. Allergies Allergen Reactions Demerol Duloxetine Erythromycin Fluoxetine [...] | | | | | [place], [place] | | | | | | [id number] | | | | | | | [...]
--- OUTSIDE RECORDS SUMMARY | ~2019-09-06 | XMS | Encounter Summary ---
Demographics + + + | Address | [address] | | | [place] [address] | + + + | Home Phone [...] [place] | | | | | [address] | | + + + + + Care Team Providers + +------+ + | Care Potato Peeler Name | Role | Phone | [...] [address] | [address] [place], [place] | | | | | [place], [place] | [id number] | | | | | [address] | | | | | | [phone] | | | +--------+ + + + [...] | | | | | [place] | | | | | | [address] | | | | | | | | +--------+---------+ + + + documented as of this encounter Visit Diagnoses Not on filedocumented in this encounter"
--- OUTSIDE RECORDS SUMMARY | ~2019-09-06 | XMS | Encounter Summary ---
Demographics + + + | Address | [address] | | | [place] [address] | + + + | Home Phone [...] [place] | | | | | [address] | | + + + + + Care Team Providers + +------+ + | Care Rush Seater Name | Role | Phone | + [...] + + | 08/08/ | Telephone | [facility] | Ashley Chávez | Other (Questions | | 2019 | | CARDIOLOGY [place] | Pollo, Ticket Sales Agent | about coverage. ) | | | | [address] | | | | | | [place] | | | | | | [address] | | | | | | [phone] | | | +--------+ + + + [...] | | | | | [place] | | | | | | [address] | | | | | | | | +--------+---------+ + + + documented as of this encounter Visit Diagnoses Not on filedocumented in this encounter"
--- OUTSIDE RECORDS SUMMARY | ~2019-09-06 | XMS | Encounter Summary ---
Demographics + + + | Address | [address] | | | [place] [address] | + + + | Home Phone [...] [place] | | | | | [address] | | + + + + + Care Team Providers + +------+ + | Care Deoiling Machine Operator Name | Role | Phone [...] 08/15/ | Documentati | [facility] | Katharine Moncada, | Other (urgent | | 2019 | on | CARDIOLOGY [place] | Technologist | report) | | | | [address] | | | | | | [place] | | | | | | [address] | | | | | | [phone] | | | +--------+ + + + [...] [place] | | | | | | [address] | | | | | | | | +--------+---------+ + + + documented as of this encounter Visit Diagnoses Not on filedocumented in this encounter"
--- OUTSIDE RECORDS SUMMARY | ~2019-09-06 | XMS | Encounter Summary ---
Demographics + + + | Address | [address] | | | [place] [address] | + + + | Home Phone [...] [place] | | | | | [address] | | + + + + + Care Team Providers + +------+ + | Care Loan Originator Name | Role | Phone | + [...] + + | 08/20/ | Documentati | [facility] | Katharine Moncada, | Other (urgent | | 2019 | on | CARDIOLOGY [place] | Technologist | report) | | | | [address] | | | | | | [place] | | | | | | [address] | | | | | | [phone] | | | +--------+ + + + [...] [place] | | | | | | [address] | | | | | | | | +--------+---------+ + + + documented as of this encounter Visit Diagnoses Not on filedocumented in this encounter"
--- OUTSIDE RECORDS SUMMARY | ~2019-09-06 | XMS | Clinical Summary ---
Demographics + + + | Address | [address] | | | [place] [address] | + + + | Home Phone [...] + | Author | [facility] [employer] (Historical as of | | | 06-09-19) | + + + | Organization | [facility] (Historical as of | | [...] Providers + +------+ + | Care Instrument Maintenance Supervisor Name | Role | Phone [...] | | Activ | | (VITAMIN D3) [address] | a week. | | | | [...] + | T2DM (type 2 diabetes mellitus) ([facility]) | 04/13/2013 | + + + [...] +------+-------+ + | MEDICARE | MEDICA | [id number] | | | [address] | | | RE | | | | [place] [address] | | | IP-OP | | | [...] Self | [birth year] | Home: | [address] | | | al/Fam | | 1955 | [phone] | [address] [place] | | | [place]onte | | | [phone] | + +--------+ +--------+ + +
--- OUTSIDE RECORDS SUMMARY | ~2019-09-06 | XMS | Encounter Summary ---
Demographics + + + | Address | [address] | | | [place] [address] | + + + | Home Phone [...] [place], [place] | | | | | [address] | | + + + + + Care Team Providers + +------+ + | Care Coin Wrapping Machine Operator Name | Role | Phone | + +------+ + PCP | Unavailable | + +------+ + Encounter Details +--------+ + + + + | Date | Type | Department | Care Team | Description | +--------+ + + + + | 08/21/ | Hospital | [facility] | | | | 1996 | Encounter | MED CTR LABORATORY | | | | | | [address] | | | | | | [place] | | | | | | [address] | | | | | | [phone] | | | +--------+ + + + [...] | | | | | [place] | | | | | | [address] | | | | | | | | +--------+---------+ + + + documented as of this encounter Visit Diagnoses Not on filedocumented in this encounter"
--- OUTSIDE RECORDS SUMMARY | ~2019-09-06 | XMS | Encounter Summary ---
Demographics + + + | Address | [address] | | | [place] [address] | + + + | Home Phone [...] [place] | | | | | [address] | | + + + + + Care Team Providers + +------+ + | Care Chainstitch Felled Seam Operator Name | Role | Phone | [...] + + | 08/14/ | Documentati | [facility] | Katharine Moncada, | Other (urgent | | 2019 | on | CARDIOLOGY [place] | Technologist | report) | | | | [address] | | | | | | [place] | | | | | | [address] | | | | | | [phone] | | | +--------+ + + + [...] [place] | | | | | | [address] | | | | | | | | +--------+---------+ + + + documented as of this encounter Visit Diagnoses Not on filedocumented in this encounter"
--- OUTSIDE RECORDS SUMMARY | ~2019-09-06 | XMS | Encounter Summary ---
Demographics + + + | Address | [address] | | | [place] [address] | + + + | Home Phone [...] [place], [place] | | | | | [address] | | + + + + + Care Team Providers + +------+ + | Care Finance Executive Name | Role | Phone | + +------+ + PCP | Unavailable | + +------+ + Encounter Details +--------+ + + + + | Date | Type | Department | Care Team | Description | +--------+ + + + + | 12/31/ | Hospital | [facility] | | | | 1996 | Encounter | MED CTR XRAY [address] | | | [address] | | | | | | [place] [address] | | | | | | [phone] | | | +--------+ + + + [...] | | | | | [place] | | | | | | [address] | | | | | | | | +--------+---------+ + + + documented as of this encounter Visit Diagnoses Not on filedocumented in this encounter"
--- OUTSIDE RECORDS SUMMARY | ~2019-09-06 | XMS | Encounter Summary ---
Demographics + + + | Address | [address] | | | [place] [address] | + + + | Home Phone [...] [place] | | | | | [address] | | + + + + + Care Team Providers + +------+ + | Care Senior Manager Mmcoe Name | Role | Phone | + [...] [address] | [address] [place], [place] | | | | | [place], [place] | [address] | | | | | [address] | | | | | | [phone] | | | +--------+ + + + [...] [place] | | | | | | [address] | | | | | | | [...] + | MISCELLANEOUS LAB | | | [phone] | + +---------+ + + | MISCELANIOUS LAB | | | [phone] | + +---------+ + + documented in this encounter Visit Diagnoses + + | Diagnosis | + + | Back pain - Primary Backache, unspecified | + + documented in this encounter"
--- OUTSIDE RECORDS SUMMARY | ~2019-09-06 | XMS | Encounter Summary ---
Demographics + + + | Address | [address] | | | [place] [address] | + + + | Home Phone [...] [place] | | | | | [address] | | + + + + + Care Team Providers + +------+ + | Care Fur Operator Name | Role | Phone | [...] + + | 06/12/ | Office | [facility] | Chris Nicole, | Spondylisthesis | | 2013 | Visit | NEUROSURGERY [address] | PA-C [address] | (Primary Dx); | | | | [address] | [place] | Radiculopathy of | | | | [place], [place] | [address] | leg; Lumbar spine | | | | [address] | | instability; Lumbar | | | | [phone] | | spondylosis; | | | | [...] rom the original. ZANE Castillo [address] [place] [address] FAX: NEUROSURGERY HISTORY AND PHYSICAL [...] has no apparent deficits with short or fpc memory. CRANIAL NERVES: II: Acuity is intact. [...] Intrinsics 5 5 Ulnar Intrinsics 5 5 Pickle Sorter Strength 5 5 Hip Flexion 5 4* [...] [place] | | | | | | [address] | | | | | | | [...]
--- OUTSIDE RECORDS SUMMARY | ~2019-09-06 | XMS | Encounter Summary ---
Demographics + + + | Address | [address] | | | [place] [address] | + + + | Home Phone [...] [place] | | | | | [address] | | + + + + + Care Team Providers + +------+ + | Care Ecological Modeler Name | Role | Phone | + [...] [place] | | | | | | [address] | | | | | | [phone] | | | +--------+ + + + [...] [place] | | | | | | [address] | | | | | | | | +--------+---------+ + + + documented as of this encounter Visit Diagnoses Not on filedocumented in this encounter"
--- OUTSIDE RECORDS SUMMARY | ~2019-09-06 | XMS | Encounter Summary ---
Demographics + + + | Address | [address] | | | [place] [address] | + + + | Home Phone [...] [place] | | | | | [address] | | + + + + + Care Team Providers + +------+ + | Care Care Management Associate Name | Role | Phone [...] | | | | | | [address] [place], [place] | | | | | | [address] | | | | | | [phone] | | | +--------+ + + + [...] [place] | | | | | | [address] | | | | | | | | +--------+---------+ + + + documented as of this encounter Visit Diagnoses Not on filedocumented in this encounter"
--- OUTSIDE RECORDS SUMMARY | ~2019-09-06 | XMS | Encounter Summary ---
Demographics + + + | Address | [address] | | | [place] [address] | + + + | Home Phone [...] [place], [place] | | | | | [address] | | + + + + + Care Team Providers + +------+ + | Care Billiard Table Repairer Name | Role | Phone | + +------+ + PCP | Unavailable | + +------+ + Encounter Details +--------+ + + + + | Date | Type | Department | Care Team | Description | +--------+ + + + + | 12/27/ | Hospital | [facility] | | | | 1997 - | Encounter | MED CTR GENERIC PSY | | | | | | CONV DEPT [address] | | | | 01/01/ | | [place], | | | | 1997 | | [place] [address] | | | | | | [phone] | | | +--------+ + + + [...] [place] | | | | | | [address] | | | | | | | | +--------+---------+ + + + documented as of this encounter Visit Diagnoses Not on filedocumented in this encounter"
--- OUTSIDE RECORDS SUMMARY | ~2019-09-06 | XMS | Encounter Summary ---
Demographics + + + | Address | [address] | | | [place] [address] | + + + | Home Phone [...] [place] | | | | | [address] | | + + + + + Care Team Providers + +------+ + | Care Coiled Tubing Operator Name | Role | Phone | [...] + + | 08/30/ | Telephone | [facility] | Ashley Chávez | Other (Patient wants | | 2019 | | CARDIOLOGY [place] | Pollo, Dull Coat Mill Operator | to take monitor | | | | [address] | | off. ) | | | | [address] | | | | | | [place] | | | | | | [address] | | | | | | [phone] | | | +--------+ + + + [...] [place] | | | | | | [address] | | | | | | | | +--------+---------+ + + + documented as of this encounter Visit Diagnoses Not on filedocumented in this encounter"
--- OUTSIDE RECORDS SUMMARY | ~2019-09-06 | XMS | Encounter Summary ---
Demographics + + + | Address | [address] | | | [place] [address] | + + + | Home Phone [...] [place], [place] | | | | | [address] | | + + + + + Care Team Providers + +------+ + | Care Event Planner Name | Role | Phone | + +------+ + PCP | Unavailable | + +------+ + Encounter Details +--------+ + + + + | Date | Type | Department | Care Team | Description | +--------+ + + + + | 10/29/ | Hospital | [facility] | | | | 1994 | Encounter | MED CTR LABORATORY | | | | | | [address] | | | | | | [place] | | | | | | [address] | | | | | | [phone] | | | +--------+ + + + [...] | | | | | [place] | | | | | | [address] | | | | | | | | +--------+---------+ + + + documented as of this encounter Visit Diagnoses Not on filedocumented in this encounter"
--- OUTSIDE RECORDS SUMMARY | ~2019-09-06 | XMS | Encounter Summary ---
Demographics + + + | Address | [address] | | | [place] [address] | + + + | Home Phone [...] [place] | | | | | [address] | | + + + + + Care Team Providers + +------+ + | Care 4 H Youth Development Specialist Name | Role | Phone [...] + + | 08/15/ | Documentati | [facility] | Katharine Moncada, | Other (urgent | | 2019 | on | CARDIOLOGY [place] | Technologist | report) | | | | [address] | | | | | | [place] | | | | | | [address] | | | | | | [phone] | | | +--------+ + + + [...] [place] | | | | | | [address] | | | | | | | | +--------+---------+ + + + documented as of this encounter Visit Diagnoses Not on filedocumented in this encounter"
--- OUTSIDE RECORDS SUMMARY | ~2019-09-06 | XMS | Encounter Summary ---
Demographics + + + | Address | [address] | | | [place] [address] | + + + | Home Phone [...] [place] | | | | | [address] | | + + + + + Care Team Providers + +------+ + | Care Certified Ophthalmic Technician Name | Role | Phone | [...] + + | 08/13/ | Documentati | [facility] | Katharine Moncada, | Other (urgent | | 2019 | on | CARDIOLOGY [place] | Technologist | report) | | | | [address] | | | | | | [place] | | | | | | [address] | | | | | | [phone] | | | +--------+ + + + [...] [place] | | | | | | [address] | | | | | | | | +--------+---------+ + + + documented as of this encounter Visit Diagnoses Not on filedocumented in this encounter"
--- OUTSIDE RECORDS SUMMARY | ~2019-09-06 | XMS | Encounter Summary ---
Demographics + + + | Address | [address] | | | [place] [address] | + + + | Home Phone [...] [place] | | | | | [address] | | + + + + + [...] + | 02/21/ | Refill | [facility] | Deon Gonzales | Medication Refill | | 2012 | | SLEEP DISORDER [address] | MD Laureano [address] | | | | | [address] [place] | [address] [place] | | | | | [place] [address] | [place] [address] | | | | | [phone] | [phone] | | | | | | | [...] [place] | | | | | | [address] | | | | | | | | +--------+---------+ + + + documented as of this encounter Visit Diagnoses + + | Diagnosis | + + | Obstructive sleep apnea (adult) (pediatric) - Primary | + + documented in this encounter"
--- OUTSIDE RECORDS SUMMARY | ~2019-09-06 | XMS | Encounter Summary ---
Demographics + + + | Address | [address] | | | [place] [address] | + + + | Home Phone [...] [place] | | | | | [address] | | + + + + + Care Team Providers + +------+ + | Care Signal Tower Director Name | Role | Phone | + +------+ + | Natalee Andersen NP | PCP | | + +------+ + Encounter Details +--------+---------+ + + + | Date | Type | Department | Care Team | Description | +--------+---------+ + + + | 06/25/ | Surgery | [facility] | Frandy Teresa, | Canceled | | 2013 | | MED CTR OR INTRA OP | DO [address] | PROCEDURE NOT | | | | [address] | [address], [place] | PERFORMED | | | | [place], [place] | [address] | | | | | [address] | | | | | | [phone] | | | +--------+---------+ + + + [...] + + + +---------+ + + | [place]-3 Fatty | Take 1,000 mg by | [...] | | | | [place], [place] | | | | | | [id number] | | | | | | | [...] | | MEDICAL | | | | mL/min/1.21y7Lsdz than | | CENTER - | | [...] + | [facility] | [address] | [place] | [phone] | | [facility] | | [address] | | | - LABORATORY | | | | + + + + + | [facility] | [address] | [place] | | | [facility] | | [address] | | | - LABORATORY | | [...] + | [facility] | [address] | [place] | [phone] | | [facility] | | [address] | | | - LABORATORY | | | | + + + + + | [facility] | [address] | [place] | | | [facility] | | [address] | | | - LABORATORY | | [...] [address] | [place] | [phone] | | [facility] | | [address] | | | - LABORATORY | | | | + + + + + | [facility] | [address] | [place], [place] | | | [facility] | | [address] | | | - LABORATORY | | [...] | | | [facility] | | [address] | | | - BLOOD BANK | [...] | + + + + + | [facility] | [address] | [place], [place] | [phone] | | [facility] | | [address] | | | - LABORATORY | | | | + + + + + | [facility] | [address] | [place], [place] | | | [facility] | | [address] | | | - LABORATORY | | [...]
--- OUTSIDE RECORDS SUMMARY | ~2019-09-06 | XMS | Encounter Summary ---
Demographics + + + | Address | [address] | | | [place] [address] | + + + | Home Phone [...] [place] | | | | | [address] | | + + + + + Care Team Providers + +------+ + | Care Systems Test Analyst Name | Role | Phone | [...] + + | 08/24/ | Documentati | [facility] | Katharine Moncada, | Other (urgent | | 2019 | on | CARDIOLOGY [place] | Technologist | report) | | | | [address] | | | | | | [place] | | | | | | [address] | | | | | | [phone] | | | +--------+ + + + [...] [place] | | | | | | [address] | | | | | | | | +--------+---------+ + + + documented as of this encounter Visit Diagnoses Not on filedocumented in this encounter"
--- OUTSIDE RECORDS SUMMARY | ~2019-09-06 | XMS | Encounter Summary ---
Demographics + + + | Address | [address] | | | [place] [address] | + + + | Home Phone [...] [place] | | | | | [address] | | + + + + + Care Team Providers + +------+ + | Care Print Line Feeder Name | Role | Phone | + +------+ + | Adriano Patrick MD | PCP | | + +------+ + Encounter Details +--------+ + + + + | Date | Type | Department | Care Team | Description | +--------+ + + + + | 05/16/ | Orders Only | [facility] | Provider, | | | 2018 | | SYSTEM GENERIC OP | [address] | | | | | CONVERSION [address] | [address] | | | | | [address] [place], [place] | [place] [address] | | | | | [address] | | | | | | [phone] | | | +--------+ + + + [...] | | | | [place], [place] | | | | | | [address] | | | | | | | | +--------+---------+ + + + documented as of this encounter Visit Diagnoses Not on filedocumented in this encounter"
--- OUTSIDE RECORDS SUMMARY | ~2019-09-06 | XMS | Encounter Summary ---
Demographics + + + | Address | [address] | | | [place] [address] | + + + | Home Phone [...] [place], [place] | | | | | [address] | | + + + + + Care Team Providers + +------+ + | Care Web Applications Administrator Name | Role | Phone | + +------+ + PCP | Unavailable | + +------+ + Encounter Details +--------+ + + + + | Date | Type | Department | Care Team | Description | +--------+ + + + + | 04/16/ | [facility] | [facility] | Deon Gonzales | | | 2005 | Encounter | MED CTR SLEEP | MD Laureano [address] | | | | | [place] [address] | [address] [place] | | | | | [place], [place] | [place] [address] | | | | | [address] | [phone] | | | | | [phone] | | | +--------+ + + + [...] [place] | | | | | | [address] | | | | | | | | +--------+---------+ + + + documented as of this encounter Visit Diagnoses Not on filedocumented in this encounter"
--- OUTSIDE RECORDS SUMMARY | ~2019-09-06 | XMS | Encounter Summary ---
Demographics + + + | Address | [address] | | | [place] [address] | + + + | Home Phone [...] [place], [place] | | | | | [address] | | + + + + + Care Team Providers + +------+ + | Care Mainspring Former Arbor End Name | Role | Phone | + +------+ + PCP | Unavailable | + +------+ + Encounter Details +--------+ + + + + | Date | Type | Department | Care Team | Description | +--------+ + + + + | 03/11/ | [facility] | [facility] | Deon Gonzales | | | 2005 | Encounter | MED CTR SLEEP | MD Laureano [address] | | | | | [facility] [place] [address] | [address] [place] | | | | | [place], [place] | [place] [address] | | | | | [address] | [phone] | | | | | [phone] | | | +--------+ + + + [...] [place] | | | | | | [address] | | | | | | | | +--------+---------+ + + + documented as of this encounter Visit Diagnoses Not on filedocumented in this encounter"
--- OUTSIDE RECORDS SUMMARY | ~2019-09-06 | XMS | Encounter Summary ---
Demographics + + + | Address | [address] | | | [place] [address] | + + + | Home Phone [...] [place], [place] | | | | | [address] | | + + + + + [...] + + | 01/25/ | Hospital | [facility] | | | | 2002 | Encounter | MED CTR XRAY [address] | | | | | | [address] | | | | | | [place] [address] | | | | | | [phone] | | | +--------+ + + + [...] | | | | [place] | | | | | | [address] | | | | | | | | +--------+---------+ + + + documented as of this encounter Visit Diagnoses Not on filedocumented in this encounter"
--- OUTSIDE RECORDS SUMMARY | ~2019-09-06 | XMS | Encounter Summary ---
Demographics + + + | Address | [address] | | | [place] [address] | + + + | Home Phone [...] [place] | | | | | [address] | | + + + + + Care Team Providers + +------+ + | Care Court Usher Name | Role | Phone | + [...] Rd | | | | | | [place], [place] | | | | | | [address] | | | +--------+ + + + [...]
--- OUTSIDE RECORDS SUMMARY | ~2019-09-06 | XMS | Encounter Summary ---
Demographics + + + | Address | [address] | | | [place] [address] | + + + | Home Phone [...] [place], [place] | | | | | [address] | | + + + + + Care Team Providers + +------+ + | Care Loan Officer Name | Role | Phone | + +------+ + PCP | Unavailable | + +------+ + Encounter Details +--------+ + + + + | Date | Type | Department | Care Team | Description | +--------+ + + + + | 12/24/ | Hospital | [facility] | | | | 1998 | Encounter | MED CTR XRAY [address] | | | | | | [address] [place] | | | | | | [place] [address] | | | | | | [phone] | | | +--------+ + + + [...] | | | | | [place] | | | | | | [address] | | | | | | | | +--------+---------+ + + + documented as of this encounter Visit Diagnoses Not on filedocumented in this encounter"
--- OUTSIDE RECORDS SUMMARY | ~2019-09-06 | XMS | Encounter Summary ---
Demographics + + + | Address | [address] | | | [place] [address] | + + + | Home Phone [...] [place] | | | | | [address] | | + + + + + Care Team Providers + +------+ + | Care Store Operations Manager Name | Role | Phone [...] | Transcriptions | + + | Interface, Advanced Quality Engineer In - 10/24/2006 3:09 AM PST | | [id number] | | Road [place], [place] [address] [place] | | [facility] CenterOPERATION RECORDMed Rec No.: [id number] Date: [...]
--- OUTSIDE RECORDS SUMMARY | ~2019-09-06 | XMS | Encounter Summary ---
Demographics + + + | Address | [address] | | | [place] [address] | + + + | Home Phone [...] [place], [place] | | | | | [address] | | + + + + + Care Team Providers + +------+ + | Care Digital Marketing Strategist Name | Role | Phone | [...] | SR | | | | | [phone] | | | +--------+ + + + [...] [place] | | | | | | [address] | | | | | | | | +--------+---------+ + + + documented as of this encounter Visit Diagnoses Not on filedocumented in this encounter
--- OUTSIDE RECORDS SUMMARY | ~2019-09-06 | XMS | Encounter Summary ---
Demographics + + + | Address | [address] | | | [place] [address] | + + + | Home Phone [...] [place] | | | | | [address] | | + + + + + Care Team Providers + +------+ + | Care Clerical Office Worker Name | Role | Phone | [...] [place] | | | | | | [address] | | | | | | [phone] | | | +--------+ + + + [...] [place] | | | | | | [address] | | | | | | | | +--------+---------+ + + + documented as of this encounter Visit Diagnoses Not on filedocumented in this encounter"
--- OUTSIDE RECORDS SUMMARY | ~2019-09-06 | XMS | Encounter Summary ---
Demographics + + + | Address | [address] | | | [place] [address] | + + + | Home Phone [...] [place], [place] | | | | | [address] | | + + + + + Care Team Providers + +------+ + | Care Email Production Specialist Name | Role | Phone | + +------+ + PCP | Unavailable | + +------+ + Encounter Details +--------+ + + + + | Date | Type | Department | Care Team | Description | +--------+ + + + + | 01/25/ | Hospital | [facility] | | | | 2002 | Encounter | MED CTR XRAY [address] | | | | | | [address] | | | | | | [place] [address] | | | | | | [phone] | | | +--------+ + + + [...] | | | | | [place] | | | | | | [address] | | | | | | | | +--------+---------+ + + + documented as of this encounter Visit Diagnoses Not on filedocumented in this encounter"
--- OUTSIDE RECORDS SUMMARY | ~2019-09-06 | XMS | Encounter Summary ---
Demographics + + + | Address | [address] | | | [place] [address] | + + + | Home Phone [...] [place] | | | | | [address] | | + + + + + Care Team Providers + +------+ + | Care Director Of Pulmonary Unit Name | Role | Phone | [...] + + | 08/13/ | Documentati | [facility] | Katharine Moncada, | Other (urgent | | 2019 | on | CARDIOLOGY [place] | Technologist | report) | | | | [address] | | | | | | [place] | | | | | | [address] | | | | | | [phone] | | | +--------+ + + + [...] [place] | | | | | | [address] | | | | | | | | +--------+---------+ + + + documented as of this encounter Visit Diagnoses Not on filedocumented in this encounter"
--- OUTSIDE RECORDS SUMMARY | ~2019-09-06 | XMS | Encounter Summary ---
Demographics + + + | Address | [address] | | | [place] [address] | + + + | Home Phone [...] [place] | | | | | [address] | | + + + + + Care Team Providers + +------+ + | Care Patch Setter Name | Role | Phone | [...] + + | 08/13/ | Documentati | [facility] | Katharine Moncada, | Other (urgent | | 2019 | on | CARDIOLOGY [place] | Technologist | report) | | | | [address] | | | | | | [place] | | | | | | [address] | | | | | | [phone] | | | +--------+ + + + [...] [place] | | | | | | [address] | | | | | | | | +--------+---------+ + + + documented as of this encounter Visit Diagnoses Not on filedocumented in this encounter"
--- OUTSIDE RECORDS SUMMARY | ~2019-09-06 | XMS | Encounter Summary ---
Demographics + + + | Address | [address] | | | [place] [address] | + + + | Home Phone [...] [place], [place] | | | | | [address] | | + + + + + Care Team Providers + +------+ + | Care Erp Consultant Name | Role | Phone | + +------+ + PCP | Unavailable | + +------+ + Encounter Details +--------+ + + + + | Date | Type | Department | Care Team | Description | +--------+ + + + + | 06/23/ | Hospital | [facility] | | | | 2000 | Encounter | MED CTR GENERIC OP | | | | | | CONV DEPT [address] | | | | | | [place], | | | | | | [place] [address] | | | | | | [phone] | | | +--------+ + + + [...] | | | | | [place] | | | | | | [address] | | | | | | | | +--------+---------+ + + + documented as of this encounter Visit Diagnoses Not on filedocumented in this encounter"
--- OUTSIDE RECORDS SUMMARY | ~2019-09-06 | XMS | Encounter Summary ---
Demographics + + + | Address | [address] | | | [place] [address] | + + + | Home Phone [...] [place] | | | | | [address] | | + + + + + Care Team Providers + +------+ + | Care Specimen Collector Name | Role | Phone | [...] | | [address] | [place] [address] | | | | | [place], [place] | [phone] | | | | | [address] | | | | | | [phone] | | | +--------+ + + + [...] | | | | | [facility] [facility] | | | | | | [address] | | | | | | | | +--------+---------+ + + + documented as of this encounter Visit Diagnoses Not on filedocumented in this encounter"
--- OUTSIDE RECORDS SUMMARY | ~2019-09-06 | XMS | Encounter Summary ---
Demographics + + + | Address | [address] | | | [place] [address] | + + + | Home Phone [...] [place] | | | | | [address] | | + + + + + Care Team Providers + +------+ + | Care Fish Packer Name | Role | Phone | [...] + + | 02/26/ | Emergency | [facility] | [place], | CVA (cerebral | | 2015 | | MED CTR EMERGENCY | Davey Simons MD [address] | vascular accident) | | | | CENTER [address] | [address] [facility] | ([facility]) (Primary Dx) | | | | [place], [place] | [place] [address] | | | | | [address] | [phone] | | | | | [phone] | | | +--------+ + + + [...] + + + +---------+ + + | [place]-3 Fatty | Take 1,000 mg by | [...] | | | | | [place] | | | | | | [address] | | | | | | | [...] mL/min/1.73m2 | [facility] | | | [facility] | RATE,ESTIMATED | | MEDICAL | | | | mL/min/1.85c5Aptn than | | CENTER - | | [...] | 9.1 | 8.3 - 10.5 | [facility] | | | | | mg/dL | [address] | [place] | [phone] | | [facility] | | [address] | | | - LABORATORY | | [...] [address] | [place] | [phone] | | [facility] | | [address] | | | - LABORATORY | | [...] | ---- | | | 02/26/2015 13:10 [facility] | | | Emergency -numbness/facial droop 02/26/2015 08:15 [facility] | | | [facility] 02/19/2015 | | | 10:15 [facility] | | | [...] as uncontrolled 02/17/2015 | | | 08:22 [facility] Emergency | | | -Long-term [...] and uterus 02/14/2015 | | | 09:56 [facility] Emergency | | | -Disturbance [...] residual deficits | | | 02/01/2015 21:38 [facility] | | | Emergency 01/22/2015 14:00 [facility] | | | Urgent Care [...] intervertebral disc | | | 01/16/2015 12:15 [facility] | | | Urgent Care [...] other | | | medications 01/07/2015 11:45 [facility] | | | Urgent Care [...] acquired hypothyroidism 12/30/2014 | | | 17:54 [facility] Emergency | | | -Obstructive [...] essential hypertension | | | 12/30/2014 14:30 [facility] | | | Urgent Care [...] | | -Cramp of limb 11/29/2014 16:15 [facility] | | | Urgent Care [...] ------ | | | --------- [address] | | | [facility] [address] [facility] [address] | | | [facility] 7 0 Total | | | Note: Visits indicate total known visits. Medicaid [place] Dx are the | | | number of primary diagnoses on the [facility]'s non-emergent dx list. | | | | [...]
--- OUTSIDE RECORDS SUMMARY | ~2019-09-06 | XMS | Encounter Summary ---
Demographics + + + | Address | [address] | | | [place] [address] | + + + | Home Phone [...] [place] | | | | | [address] | | + + + + + Care Team Providers + +------+ + | Care Barrel Filler Name | Role | Phone | [...] | [address] | [place] | | | | | [address] [place], [place] | [place], [place] | | | | | [address] | [address] | | | | | [phone] | | | +--------+ + + + [...] [place] | | | | | | [address] | | | | | | | | +--------+---------+ + + + documented as of this encounter Visit Diagnoses Not on filedocumented in this encounter"
--- OUTSIDE RECORDS SUMMARY | ~2019-09-06 | XMS | Encounter Summary ---
Demographics + + + | Address | [address] | | | [place] [address] | + + + | Home Phone [...] [place] | | | | | [address] | | + + + + + Care Team Providers + +------+ + | Care Computer Methods Analyst Name | Role | Phone | [...] [address] | [address] [place], [place] | | | | | [place], [place] | [id number] | | | | | [address] | | | | | | [phone] | | | +--------+ + + + [...] | | | | | [place] | | | | | | [address] | | | | | | | | +--------+---------+ + + + documented as of this encounter Visit Diagnoses Not on filedocumented in this encounter"
--- OUTSIDE RECORDS SUMMARY | ~2019-09-06 | XMS | Encounter Summary ---
Demographics + + + | Address | [address] | | | [place] [address] | + + + | Home Phone [...] [place], [place] | | | | | [address] | | + + + + + Care Team Providers + +------+ + | Care Cook Fast Food Name | Role | Phone | + +------+ + PCP | Unavailable | + +------+ + Encounter Details +--------+ + + + + | Date | Type | Department | Care Team | Description | +--------+ + + + + | 09/24/ | Hospital | [facility] | | | | 1993 | Encounter | MED CTR LABORATORY | | | | | | [address] | | | | | | [place] | | | | | | [address] | | | | | | [phone] | | | +--------+ + + + [...] | | | | | [place] | | | | | | [address] | | | | | | | | +--------+---------+ + + + documented as of this encounter Visit Diagnoses Not on filedocumented in this encounter"
--- OUTSIDE RECORDS SUMMARY | ~2019-09-06 | XMS | Encounter Summary ---
Demographics + + + | Address | [address] | | | [place] [address] | + + + | Home Phone [...] [place] | | | | | [address] | | + + + + + Care Team Providers + +------+ + | Care Boiler Operator Name | Role | Phone [...] [address] | [address] [place], [place] | | | | | [place], [place] | [id number] | | | | | [address] | | | | | | [phone] | | | +--------+ + + + [...] | | | | | [place] | | | | | | [address] | | | | | | | | +--------+---------+ + + + documented as of this encounter Visit Diagnoses Not on filedocumented in this encounter"
--- OUTSIDE RECORDS SUMMARY | ~2019-09-06 | XMS | Encounter Summary ---
Demographics + + + | Address | [address] | | | [place] [address] | + + + | Home Phone [...] [place] | | | | | [address] | | + + + + + Care Team Providers + +------+ + | Care Mold Stamper Name | Role | Phone | + +------+ + | Adriano Patrick MD | PCP | | + +------+ + Encounter Details +--------+ + + + + | Date | Type | Department | Care Team | Description | +--------+ + + + + | 06/10/ | Abstract | [facility] | Thierry Fry | | | 2014 | | MEDICINE [address] | MD Lisa [address] | | | | | [address] [place] | [address] [place] | | | | | [place] [address] | [id number] | | | | | [phone] | | | +--------+ + + + [...] | | | | | [place] | | | | | | [id number] | | | | | | | [...]
--- OUTSIDE RECORDS SUMMARY | ~2019-09-06 | XMS | Encounter Summary ---
Demographics + + + | Address | [address] | | | [place] [address] | + + + | Home Phone [...] [place] | | | | | [address] | | + + + + + Care Team Providers + +------+ + | Care Territory Sales Manager Name | Role | Phone [...] [place] | | | | | | [address] | | | | | | [phone] | | | +--------+ + + + [...] [place] | | | | | | [address] | | | | | | | | +--------+---------+ + + + documented as of this encounter Visit Diagnoses Not on filedocumented in this encounter"
--- OUTSIDE RECORDS SUMMARY | ~2019-09-06 | XMS | Encounter Summary ---
Demographics + + + | Address | [address] | | | [place] [address] | + + + | Home Phone [...] [place], [place] | | | | | [address] | | + + + + + Care Team Providers + +------+ + | Care Brewing Technician Name | Role | Phone | + +------+ + PCP | Unavailable | + +------+ + Encounter Details +--------+ + + + + | Date | Type | Department | Care Team | Description | +--------+ + + + + | 10/29/ | Hospital | [facility] | | | | 1994 | Encounter | MED CTR LABORATORY | | | | | | [address] | | | | | | [place] | | | | | | [address] | | | | | | [phone] | | | +--------+ + + + [...] | | | | | [place] | | | | | | [address] | | | | | | | | +--------+---------+ + + + documented as of this encounter Visit Diagnoses Not on filedocumented in this encounter"
--- OUTSIDE RECORDS SUMMARY | ~2019-09-06 | XMS | Encounter Summary ---
Demographics + + + | Address | [address] | | | [place] [address] | + + + | Home Phone [...] [place], [place] | | | | | [address] | | + + + + + Care Team Providers + +------+ + | Care Loss Prevention Detective Name | Role | Phone | + +------+ + PCP | Unavailable | + +------+ + Encounter Details +--------+ + + + + | Date | Type | Department | Care Team | Description | +--------+ + + + + | 12/06/ | Hospital | [facility] | | | | 1994 | Encounter | MED CTR LABORATORY | | | | | | [address] | | | | | | [place] | | | | | | [address] | | | | | | [phone] | | | +--------+ + + + [...] | | | | | [place] | | | | | | [address] | | | | | | | | +--------+---------+ + + + documented as of this encounter Visit Diagnoses Not on filedocumented in this encounter"
--- OUTSIDE RECORDS SUMMARY | ~2019-09-06 | XMS | Encounter Summary ---
Demographics + + + | Address | [address] | | | [place] [address] | + + + | Home Phone [...] [place], [place] | | | | | [address] | | + + + + + Care Team Providers + +------+ + | Care Manager Sql Name | Role | Phone | + +------+ + PCP | Unavailable | + +------+ + Encounter Details +--------+ + + + + | Date | Type | Department | Care Team | Description | +--------+ + + + + | 01/06/ | Hospital | [facility] | | | | 1992 | Encounter | MED CTR LABORATORY | | | | | | [address] | | | | | | [place] | | | | | | [address] | | | | | | [phone] | | | +--------+ + + + [...] | | | | | [place] | | | | | | [address] | | | | | | | | +--------+---------+ + + + documented as of this encounter Visit Diagnoses Not on filedocumented in this encounter"
--- OUTSIDE RECORDS SUMMARY | ~2019-09-06 | XMS | Encounter Summary ---
Demographics + + + | Address | [address] | | | [place] [address] | + + + | Home Phone [...] [place] | | | | | [address] | | + + + + + Care Team Providers + +------+ + | Care Sales Agent [employer] Name | Role | Phone | [...] + | 04/30/ | Office | [facility] | Russell Alfaro PA | ROGERS on CPAP (Primary | | 2015 | Visit | SLEEP DISORDER [address] | [address] | Dx) | | | | [address] | [place] | | | | | [place] [address] | [address] | | | | | [phone] | | | +--------+---------+ + + + [...] Insomnia Severity Index Insomnia Severity Index 13 [place] Sleepiness Scale Sitting and reading 3 Watching [...] nasal obtained from: [facility] [place] pressure: 11-20 cm Median: 12.1 cm 95%: [...] appro priate paperwork. Thirty minutes were spent [id number], with the majority of time spent i [...] | | | | | [place], [place] | | | | | | [address] | | | | | | | | +--------+---------+ + + + documented as of this encounter Visit Diagnoses + + | Diagnosis | + + | ROGERS on CPAP - Primary Obstructive sleep apnea (adult) (pediatric) | + + documented in this encounter"
--- OUTSIDE RECORDS SUMMARY | ~2019-09-06 | XMS | Encounter Summary ---
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[employer]ER [address] | | | | | | neuritis or | [address] [place] | | | | | | | [address] | | | | | | radiculitis, | [place], | | | | | | unspecified | [place] [address] | | | | | | | Phone: | | | | | | Degeneration | [phone] | | | | | | of lumbar | Fax: | | | | | | or | [phone] | | | | | | lumbosacral [...] + + | 03/11/ | Hospital | [facility] | Natalee Andersen | Thoracic or | | 2013 | Encounter | MED CTR MRI [address] | L, 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 RETOUCHER [address] | lumbosacral neuritis | | | | [place], | [address] | or radiculitis, | | | | [place] [address] | [place] [address] | unspecified; | | | | [phone] | [phone] | Degeneration of | | | | [...] + + + +---------+ + + | [place]-3 Fatty | Take 1,000 mg by | [...] [place] | | | | | | [address] | | | | | | | [...] + | MISCELLANEOUS LAB | | | [phone] | + +---------+ + + | MISCELANIOUS LAB | | | [phone] | + +---------+ + + documented in this encounter Visit Diagnoses + + | Diagnosis | + + | Thoracic or lumbosacral neuritis or radiculitis, unspecified | + + | Degeneration of lumbar or lumbosacral intervertebral disc | + + documented in this encounter"
--- OUTSIDE RECORDS SUMMARY | ~2019-09-06 | XMS | Encounter Summary ---
Demographics + + + | Address | [address] | | | [place] [address] | + + + | Home Phone [...] [place] | | | | | [address] | | + + + + + [...] [address] | [address] [place], [place] | | | | | [place], [place] | [address] | | | | | [address] | | | | | | [phone] | | | +--------+--------+ + + + [...] | | | | | [place] | | | | | | [address] | | | | | | | | +--------+---------+ + + + documented as of this encounter Visit Diagnoses Not on filedocumented in this encounter"
--- OUTSIDE RECORDS SUMMARY | ~2019-09-06 | XMS | Encounter Summary ---
Demographics + + + | Address | [address] | | | [place] [address] | + + + | Home Phone [...] [place], [place] | | | | | [address] | | + + + + + Care Team Providers + +------+ + | Care Clinical Staff Anesthesiologist Name | Role | Phone | + +------+ + PCP | Unavailable | + +------+ + Encounter Details +--------+ + + + + | Date | Type | Department | Care Team | Description | +--------+ + + + + | 12/31/ | Hospital | [facility] | | | | 1996 | Encounter | MED CTR XRAY [address] | | | | | [address] | | | | | | [place] [address] | | | | | | [phone] | | | +--------+ + + + [...] | | | | [place] | | | | | | [address] | | | | | | | | +--------+---------+ + + + documented as of this encounter Visit Diagnoses Not on filedocumented in this encounter"
--- OUTSIDE RECORDS SUMMARY | ~2019-09-06 | XMS | Encounter Summary ---
Demographics + + + | Address | [address] | | | [place] [address] | + + + | Home Phone [...] [place], [place] | | | | | [address] | | + + + + + Care Team Providers + +------+ + | Care Shaper Machine Hand Name | Role | Phone | + +------+ + PCP | Unavailable | + +------+ + Encounter Details +--------+ + + + + | Date | Type | Department | Care Team | Description | +--------+ + + + + | 01/16/ | Hospital | [facility] | | | | 2002 | Encounter | MED CTR XRAY [address] | | | | | | [address] | | | | | | [place] [address] | | | | | | [phone] | | | +--------+ + + + [...] | | | | | [place] | | | | | | [address] | | | | | | | | +--------+---------+ + + + documented as of this encounter Visit Diagnoses Not on filedocumented in this encounter"
--- OUTSIDE RECORDS SUMMARY | ~2019-09-06 | XMS | Encounter Summary ---
Demographics + + + | Address | [address] | | | [place] [address] | + + + | Home Phone [...] [place], [place] | | | | | [address] | | + + + + + Care Team Providers + +------+ + | Care Custodial Engineer Name | Role | Phone | + +------+ + PCP | Unavailable | + +------+ + Encounter Details +--------+ + + + + | Date | Type | Department | Care Team | Description | +--------+ + + + + | 07/17/ | Hospital | [facility] | | | | 1997 | Encounter | MED CTR EMERGENCY | | | | | | [address] | | | | | | [place] | | | | | | [address] | | | | | | [phone] | | | +--------+ + + + [...] | | | | | [place] | | | | | | [address] | | | | | | | | +--------+---------+ + + + documented as of this encounter Visit Diagnoses Not on filedocumented in this encounter"
--- OUTSIDE RECORDS SUMMARY | ~2019-09-06 | XMS | Encounter Summary ---
Demographics + + + | Address | [address] | | | [place] [address] | + + + | Home Phone [...] [place], [place] | | | | | [address] | | + + + + + Care Team Providers + +------+ + | Care Donkey Engine Firer/Fireman Name | Role | Phone | + +------+ + PCP | Unavailable | + +------+ + Encounter Details +--------+ + + + + | Date | Type | Department | Care Team | Description | +--------+ + + + + | 07/23/ | Hospital | [facility] | | | | 1992 - | Encounter | MED CTR GENERIC PSY | | | | | | CONV DEPT [address] | | | | 07/28/ | | [address], | | | | 1992 | | [place] [address] | | | | | | [phone] | | | +--------+ + + + [...] [place] | | | | | | [address] | | | | | | | | +--------+---------+ + + + documented as of this encounter Visit Diagnoses Not on filedocumented in this encounter"
--- OUTSIDE RECORDS SUMMARY | ~2019-09-06 | XMS | Encounter Summary ---
Demographics + + + | Address | [address] | | | [place] [address] | + + + | Home Phone [...] [place], [place] | | | | | [address] | | + + + + + Care Team Providers + +------+ + | Care Movie Shot Cameraman Name | Role | Phone | + +------+ + PCP | Unavailable | + +------+ + Encounter Details +--------+ + + + + | Date | Type | Department | Care Team | Description | +--------+ + + + + | 06/17/ | Hospital | [facility] | | | | 1991 - | Encounter | MED CTR GENERIC PSY | | | | | | CONV DEPT [address] | | | | 06/18/ | | [address], | | | | 1991 | | [place] [address] | | | | | | [phone] | | | +--------+ + + + [...] [place] | | | | | | [address] | | | | | | | | +--------+---------+ + + + documented as of this encounter Visit Diagnoses Not on filedocumented in this encounter"
--- OUTSIDE RECORDS SUMMARY | ~2019-09-06 | XMS | Encounter Summary ---
Demographics + + + | Address | [address] | | | [place] [address] | + + + | Home Phone [...] [place] | | | | | [address] | | + + + + + Care Team Providers + +------+ + | Care Slot Operations Director Name | Role | Phone | [...] + + | 08/16/ | Telephone | [facility] | Ashley Chávez | Other (Called to | | 2018 | | CARDIOLOGY [place] | Pollo, Pension Consultant | tell patient what | | | | [address] | | Nicholas said. ) | | | | [address] | | | | | | [place] | | | | | | [address] | | | | | | [phone] | | | +--------+ + + + [...] [place] | | | | | | [address] | | | | | | | | +--------+---------+ + + + documented as of this encounter Visit Diagnoses Not on filedocumented in this encounter"
--- OUTSIDE RECORDS SUMMARY | ~2019-09-06 | XMS | Encounter Summary ---
Demographics + + + | Address | [address] | | | [place] [address] | + + + | Home Phone [...] [place] | | | | | [address] | | + + + + + Care Team Providers + +------+ + | Care Agronomy Instructor Name | Role | Phone | + +------+ + | Natalee Andersen NP | PCP | | + +------+ + Encounter Details +--------+ + + + + | Date | Type | Department | Care Team | Description | +--------+ + + + + | 06/26/ | Hospital | [facility] | Heather Cordero PT | | | 2014 | Encounter | MED CTR ACUTE | [address] | | | | | PHYSICAL THERAPY | [place] | | | | | [address] [place] | [address] | | | | | [place] [address] | | | | | | [phone] | | | +--------+ + + + [...] + + + +---------+ + + | [place]-3 Fatty | Take 1,000 mg by [...] [place] | | | | | | [address] | | | | | | | | +--------+---------+ + + + documented as of this encounter Visit Diagnoses Not on filedocumented in this encounter"
--- OUTSIDE RECORDS SUMMARY | ~2019-09-06 | XMS | Encounter Summary ---
Demographics + + + | Address | [address] | | | [place] [address] | + + + | Home Phone [...] [place] | | | | | [address] | | + + + + + Care Team Providers + +------+ + | Care Field Crop I Farmworker Name | Role | Phone | + +------+ + | Natalee Andersen NP | PCP | | + +------+ + Encounter Details +--------+ + + + + | Date | Type | Department | Care Team | Description | +--------+ + + + + | 06/26/ | Hospital | [facility] | Heather Cordero PT | | | 2014 | Encounter | MED CTR ACUTE | [address] | | | | | PHYSICAL THERAPY | [place] | | | | | [address] [place] | [address] | | | | | [place] [address] | | | | | | [phone] | | | +--------+ + + + [...] + + + +---------+ + + | [place]-3 Fatty | Take 1,000 mg by | [...] [place] | | | | | | [address] | | | | | | | | +--------+---------+ + + + documented as of this encounter Visit Diagnoses Not on filedocumented in this encounter"
--- OUTSIDE RECORDS SUMMARY | ~2019-09-06 | XMS | Encounter Summary ---
Demographics + + + | Address | [address] | | | [place] [address] | + + + | Home Phone [...] [place], [place] | | | | | [address] | | + + + + + Care Team Providers + +------+ + | Care Post Graduate Intern Name | Role | Phone | + +------+ + PCP | Unavailable | + +------+ + Encounter Details +--------+ + + + + | Date | Type | Department | Care Team | Description | +--------+ + + + + | 09/10/ | Hospital | [facility] | | | | 1992 | Encounter | MED CTR LABORATORY | | | | | | [address] | | | | | | [place] | | | | | | [address] | | | | | | [phone] | | | +--------+ + + + [...] | | | | | [place] | | | | | | [address] | | | | | | | | +--------+---------+ + + + documented as of this encounter Visit Diagnoses Not on filedocumented in this encounter"
--- OUTSIDE RECORDS SUMMARY | ~2019-09-06 | XMS | Encounter Summary ---
Demographics + + + | Address | [address] | | | [place] [address] | + + + | Home Phone [...] | [facility] | | | and [...] [place], [place] | | | | | [address] | | + + + + + Care Team Providers + +------+ + | Care Bicycle Fitter Name | Role | Phone | + +------+ + PCP | Unavailable | + +------+ + Encounter Details +--------+ + + + + | Date | Type | Department | Care Team | Description | +--------+ + + + + | 07/23/ | Hospital | [facility] | | | | 1992 - | Encounter | MED CTR GENERIC PSY | | | | | | CONV DEPT [address] | | | | 07/28/ | | [address], | | | | 1992 | | [place] [address] | | | | | | [phone] | | | +--------+ + + + [...] [place] | | | | | | [address] | | | | | | | | +--------+---------+ + + + documented as of this encounter Visit Diagnoses Not on filedocumented in this encounter"
--- OUTSIDE RECORDS SUMMARY | ~2019-09-06 | XMS | Encounter Summary ---
Demographics + + + | Address | [address] | | | [place] [address] | + + + | Home Phone [...] [place] | | | | | [address] | | + + + + + [...] + + | 07/08/ | Telephone | [facility] | Frandy Teresa, | Other (post op call | | 2013 | | NEUROSURGERY [address] | DO [address] | ) | | | | [address] | [address] [place], [place] | | | | | [place], [place] | [address] | | | | | [address] | | | | | | [phone] | | | +--------+ + + + [...] | | | | | [place] | | | | | | [address] | | | | | | | | +--------+---------+ + + + documented as of this encounter Visit Diagnoses Not on filedocumented in this encounter"
--- OUTSIDE RECORDS SUMMARY | ~2019-09-06 | XMS | Encounter Summary ---
Demographics + + + | Address | [address] | | | [place] [address] | + + + | Home Phone [...] [place] | | | | | [address] | | + + + + + Care Team Providers + +------+ + | Care Floatlight Loading Supervisor Name | Role | Phone | [...] + | 07/01/ | Telephone | [facility] | Frandy Teresa, | Other (Surgery ) | | 2013 | | NEUROSURGERY [address] | DO [address] | | | | | [address] | [address] [place], [place] | | | | | [place], [place] | [address] | | | | | [address] | | | | | | [phone] | | | +--------+ + + + [...] [place] | | | | | | [address] | | | | | | | | +--------+---------+ + + + documented as of this encounter Visit Diagnoses Not on filedocumented in this encounter"
--- OUTSIDE RECORDS SUMMARY | ~2019-09-06 | XMS | Encounter Summary ---
Demographics + + + | Address | [address] | | | [place] [address] | + + + | Home Phone [...] [place], [place] | | | | | [address] | | + + + + + Care Team Providers + +------+ + | Care Lmsw Name | Role | Phone | + +------+ + PCP | Unavailable | + +------+ + Encounter Details +--------+ + + + + | Date | Type | Department | Care Team | Description | +--------+ + + + + | 01/06/ | Hospital | [facility] | | | | 1992 | Encounter | MED CTR LABORATORY | | | | | | [address] | | | | | | [place] | | | | | | [address] | | | | | | [phone] | | | +--------+ + + + [...] | | | | | [place] | | | | | | [address] | | | | | | | | +--------+---------+ + + + documented as of this encounter Visit Diagnoses Not on filedocumented in this encounter"
--- OUTSIDE RECORDS SUMMARY | ~2019-09-06 | XMS | Encounter Summary ---
Demographics + + + | Address | [address] | | | [place] [address] | + + + | Home Phone [...] [place] | | | | | [address] | | + + + + + Care Team Providers + +------+ + | Care Poultry Eviscerator Name | Role | Phone | + [...] + + | 02/01/ | Telephone | [facility] | Frandy Teresa, | Imaging Only | | 2019 | | NEUROSUR[address]ERY [address] | DO [address] | | | | | [address] | [address] [place], [place] | | | | | [place], [place] | [address] | | | | | [address] | | | | | | [phone] | | | +--------+ + + + [...] [place] | | | | | | [address] | | | | | | | | +--------+---------+ + + + documented as of this encounter Visit Diagnoses Not on filedocumented in this encounter"
--- OUTSIDE RECORDS SUMMARY | ~2019-09-06 | XMS | Encounter Summary ---
Demographics + + + | Address | [address] | | | [place] [address] | + + + | Home Phone [...] [place] | | | | | [address] | | + + + + + Care Team Providers + +------+ + | Care Photographic Enlarger Operator Name | Role | Phone | [...] sleep apnea) | | | | [address] [place] | [address] [place] | (Primary Dx); | | | | [place] [address] | [place] [address] | Sleepiness | | | | [phone] | [phone] | | | | | | | [...] t from the original. 03/06/13 1000 [place] Sleepiness Scale Sitting and reading 3 Watching [...] by mouth Daily., Disp: , Rfl: ; [place]-3 Fatty Acids (FISH OIL CONCENTRATE) 1000 MG [...] | | | | | [place] | | | | | | [id number] | | | | | | | | +--------+---------+ + + + documented as of this encounter Visit Diagnoses + + | Diagnosis | + + | ROGERS (obstructive sleep apnea) - Primary Obstructive sleep apnea (adult) (pediatric) | + + | Sleepiness Other alteration of consciousness | + + documented in this encounter"
--- OUTSIDE RECORDS SUMMARY | ~2019-09-06 | XMS | Encounter Summary ---
Demographics + + + | Address | [address] | | | [place] [address] | + + + | Home Phone [...] [place], [place] | | | | | [address] | | + + + + + Care Team Providers + +------+ + | Care Environmental Economist Name | Role | Phone | + +------+ + PCP | Unavailable | + +------+ + Encounter Details +--------+ + + + + | Date | Type | Department | Care Team | Description | +--------+ + + + + | 02/24/ | Hospital | [facility] | | | | 1997 - | Encounter | MED CTR GENERIC PSY | | | | | | CONV DEPT [address] | | | | 02/26/ | | [address], | | | | 1997 | | [place] [address] | | | | | | [phone] | | | +--------+ + + + [...] [place] | | | | | | [address] | | | | | | | | +--------+---------+ + + + documented as of this encounter Visit Diagnoses Not on filedocumented in this encounter"
--- OUTSIDE RECORDS SUMMARY | ~2019-09-06 | XMS | Encounter Summary ---
Demographics + + + | Address | [address] | | | [place] [address] | + + + | Home Phone [...] [place] | | | | | [address] | | + + + + + Care Team Providers + +------+ + | Care Wood Preparation Supervisor Name | Role | Phone [...] | SLEEP DISORDER 401 | [address] | Dx) | | | | [address] [place] | [place] | | | | | [place] [address] | [address] | | | | | [phone] | | | +--------+---------+ + + + [...] Insomnia Severity Index Insomnia Severity Index 13 Broughton Sleepiness Scale Sitting and reading 3 Watching [...] nasal obtained from: [facility] [place] pressure: 11-20 cm Median: 12.1 cm 95%: [...] appro priate paperwork. Thirty minutes were spent [id number], with the majority of time spent i n counseling. Rsusell Alfaro PA-C cc: Adriano Patrick MD documented in this enco unter Plan of Treatment +--------+---------+ + + + | Date | Type | Specialty | Care Team | Description | +--------+---------+ + + + | 10/11/ | Office | Cardiology | Desiree Peterson DO | | | 2019 | Visit | | [address] | | | | | | [place], [place] | | | | | | [address] | | | | | | | | +--------+---------+ + + + documented as of this encounter Visit Diagnoses + + | Diagnosis | + + | ROGERS on CPAP - Primary Obstructive sleep apnea (adult) (pediatric) | + + documented in this encounter"
--- OUTSIDE RECORDS SUMMARY | ~2019-09-06 | XMS | Encounter Summary ---
Demographics + + + | Address | [address] | | | [place] [address] | + + + | Home Phone [...] [place] | | | | | [address] | | + + + + + Care Team Providers + +------+ + | Care Digital Print Operator Name | Role | Phone | [...] [place], [place] | | | | | [place], [place] | [id number] | | | | | [address] | | | | | | [phone] | | | +--------+ + + + [...] | | | | | [place] | | | | | | [address] | | | | | | | | +--------+---------+ + + + documented as of this encounter Visit Diagnoses Not on filedocumented in this encounter"
--- OUTSIDE RECORDS SUMMARY | ~2019-09-06 | XMS | Encounter Summary ---
Demographics + + + | Address | [address] | | | [place] [address] | + + + | Home Phone [...] [place] | | | | | [address] | | + + + + + Care Team Providers + +------+ + | Care Cleaning Handyman Name | Role | Phone | [...] [address] | | | | | [place], [place] | Shaheen Simons | | | | | [address] | [place] [address] | | | | | [phone] | [phone] | | | | | | | [...] [place] | | | | | | [address] | | | | | | | [...] Testing | | | performed at [facility];[address] [place] [id number] CULTURE | | | 50,000 TO 100,000 CFU/ML | | | MIXED GRAM POSITIVE HAIDER NO SUSCEPTIBILITY TO FOLLOW | | | MULTIPLE ORGANISM TYPES PRESENT, | | | SUGGESTIVE OF CONTAMINATION OR COLONIZATION. SUGGEST RECOLLECTION FOR | | | CULTURE. Testing | | | performed at [facility];[address] [place] [address];[place] [address] REPORT | | | STATUS 06/08/2012 FINAL [...]
--- OUTSIDE RECORDS SUMMARY | ~2019-09-06 | XMS | Encounter Summary ---
Demographics + + + | Address | [address] | | | [place] [address] | + + + | Home Phone [...] [place], [place] | | | | | [address] | | + + + + + Care Team Providers + +------+ + | Care Tape Making Machine Operator Name | Role | [...] | | | | | [place] [address] | | | | | | [phone] | | | +--------+ + + + [...] | | | | [place] | | | | | | [address] | | | | | | | | +--------+---------+ + + + documented as of this encounter Visit Diagnoses Not on filedocumented in this encounter"
--- OUTSIDE RECORDS SUMMARY | ~2019-09-06 | XMS | Encounter Summary ---
Demographics + + + | Address | [address] | | | [place] [address] | + + + | Home Phone [...] [place], [place] | | | | | [address] | | + + + + + Care Team Providers + +------+ + | Care Envelope Stamping Machine Operator Name | Role | Phone | + +------+ + PCP | Unavailable | + +------+ + Encounter Details +--------+ + + + + | Date | Type | Department | Care Team | Description | +--------+ + + + + | 12/27/ | Hospital | [facility] | | | | 1995 | Encounter | MED CTR LABORATORY | | | | | | [address] | | | | | | [place] | | | | | | [address] | | | | | | [phone] | | | +--------+ + + + [...] | | | | | [place] | | | | | | [address] | | | | | | | | +--------+---------+ + + + documented as of this encounter Visit Diagnoses Not on filedocumented in this encounter"
--- OUTSIDE RECORDS SUMMARY | ~2019-09-06 | XMS | Encounter Summary ---
Demographics + + + | Address | [address] | | | [place] [address] | + + + | Home Phone [...] [place], [place] | | | | | [address] | | + + + + + Care Team Providers + +------+ + | Care Carton Packaging Machine Operator Name | Role | Phone | + +------+ + PCP | Unavailable | + +------+ + Encounter Details +--------+ + + + + | Date | Type | Department | Care Team | Description | +--------+ + + + + | 06/17/ | Hospital | [facility] | | | | 1991 - | Encounter | MED CTR GENERIC PSY | | | | | | CONV DEPT [address] | | | | 06/18/ | | [address], | | | | 1991 | | [place] [address] | | | | | | [phone] | | | +--------+ + + + [...] [place] | | | | | | [address] | | | | | | | | +--------+---------+ + + + documented as of this encounter Visit Diagnoses Not on filedocumented in this encounter"
--- OUTSIDE RECORDS SUMMARY | ~2019-09-06 | XMS | Encounter Summary ---
Demographics + + + | Address | [address] | | | [place] [address] | + + + | Home Phone [...] [place], [place] | | | | | [address] | | + + + + + Care Team Providers + +------+ + | Care Vocational Education Professional Name | Role | Phone | + +------+ + PCP | Unavailable | + +------+ + Encounter Details +--------+ + + + + | Date | Type | Department | Care Team | Description | +--------+ + + + + | 06/30/ | Hospital | [facility] | | | | 2000 | Encounter | MED CTR EMERGENCY | | | | | | [address] | | | | | | [place] | | | | | | [address] | | | | | | [phone] | | | +--------+ + + + [...] | | | | [place] | | | | | | [address] | | | | | | | | +--------+---------+ + + + documented as of this encounter Visit Diagnoses Not on filedocumented in this encounter"
--- OUTSIDE RECORDS SUMMARY | ~2019-09-06 | XMS | Encounter Summary ---
Demographics + + + | Address | [address] | | | [place] [address] | + + + | Home Phone [...] [place], [place] | | | | | [address] | | + + + + + Care Team Providers + +------+ + | Care Journeyman Lineman Name | Role | Phone | + +------+ + PCP | Unavailable | + +------+ + Encounter Details +--------+ + + + + | Date | Type | Department | Care Team | Description | +--------+ + + + + | 05/29/ | Hospital | [facility] | | | | 1991 | Encounter | MED CTR LABORATORY | | | | | | [address] | | | | | | [place] | | | | | | [address] | | | | | | [phone] | | | +--------+ + + + [...] | | | | | [place] | | | | | | [address] | | | | | | | | +--------+---------+ + + + documented as of this encounter Visit Diagnoses Not on filedocumented in this encounter"
--- OUTSIDE RECORDS SUMMARY | ~2019-09-06 | XMS | Encounter Summary ---
Demographics + + + | Address | [address] | | | [place] [address] | + + + | Home Phone [...] [place], [place] | | | | | [address] | | + + + + + Care Team Providers + +------+ + | Care Wash Driller Name | Role | Phone | [...] | | | 1997 | | [place] [id number] | | | | | | [phone] | | | +--------+ + + + [...] [place] | | | | | | [address] | | | | | | | | +--------+---------+ + + + documented as of this encounter Visit Diagnoses Not on filedocumented in this encounter"
--- OUTSIDE RECORDS SUMMARY | ~2019-09-06 | XMS | Encounter Summary ---
Demographics + + + | Address | [address] | | | [place] [address] | + + + | Home Phone [...] [place], [place] | | | | | [address] | | + + + + + [...] Hospital | [facility] | Serafin Bautista | | | 2012 | Encounter | MED CTR XRAY [address] | T, MD [address] | | | | | [place] | ST [place], [place] | | | | | [place] [address] | [address] | | | | | [phone] | | | +--------+ + + + [...] [place] | | | | | | [address] | | | | | | | [...] Performed At | + + + | [facility] Diagnostic Imaging Department | [facility] | | [address] [facility] | [facility] | | PROCEDURE: EPIDURAL STEROID [...] Transcribed Date/Time: | | | 02/03/2012 18:45 Policy Change Clerks Supervisor: <Electronically Signed | | | by Serafin Bautista MD> 02/14/12 0916 | | + + + + + | Procedure Note | + + | Juan, Rad Conversion - 11/30/2013 5:06 PM [facility] | | Diagnostic Imaging Department | | [address] [facility] | | | | | | | [...] | Transcribed Date/Time: 02/03/2012 18:45 | | Policy Change Clerks Supervisor: LaMAHIN | | <Electronically Signed by Serafin Batuista MD> 02/14/12 0916 | + + + [...]
--- OUTSIDE RECORDS SUMMARY | ~2019-09-06 | XMS | Encounter Summary ---
Demographics + + + | Address | [address] | | | [place] [address] | + + + | Home Phone [...] [place] | | | | | [address] | | + + + + + [...] + + | 07/06/ | Hospital | [facility] | Latricia Feliciano | | | 2014 | Encounter | MED CTR ACUTE | D, PT [address] | | | | | PHYSICAL THERAPY | [place] | | | | | [address] | [address] | | | | | [place] [address] | | | | | | [phone] | | | +--------+ + + + [...] + + + +---------+ + + | Lane-3 Fatty | Take 1,000 mg by | [...] | | | | [place] | | | | | | [address] | | | | | | | | +--------+---------+ + + + documented as of this encounter Visit Diagnoses Not on filedocumented in this encounter"
--- OUTSIDE RECORDS SUMMARY | ~2019-09-06 | XMS | Encounter Summary ---
Demographics + + + | Address | [address] | | | [place] [address] | + + + | Home Phone [...] [place] | | | | | [address] | | + + + + + Care Team Providers + +------+ + | Care Can Top Setter Name | Role | Phone | + +------+ + | Basim Bolanos MD | PCP | | + +------+ + Encounter Details +--------+ + + + + | Date | Type | Department | Care Team | Description | +--------+ + + + + | 01/24/ | Abstract | [facility] [place] | [facility], | | | 2012 | | GASTROENTEROLOGY | FORTUNATO Thomas [address] | | | | | [address] [place] | [place], [address] | | | | | [address] [place], [place] | [place], [place] | | | | | [address] | [address] | | | | | [phone] | | | +--------+ + + + [...] [place] | | | | | | [address] | | | | | | | | +--------+---------+ + + + documented as of this encounter Visit Diagnoses Not on filedocumented in this encounter"
--- OUTSIDE RECORDS SUMMARY | ~2019-09-06 | XMS | Encounter Summary ---
Demographics + + + | Address | [address] | | | [place] [address] | + + + | Home Phone [...] [place] | | | | | [address] | | + + + + + Care Team Providers + +------+ + | Care Fulling Mill Operator Name | Role | Phone [...] | | | spondylolist | | [address] | | | | | hesis | | [place], | | | | | Spinal | | [place] [address] | | | | | stenosis, | | Phone: | | | | | lumbar | | [phone] | | | | | region, | | Fax: | | | | | without | | [phone] | | | | | neurogenic | [...] + + | 07/02/ | Surgery | [facility] | Frandy Teresa, | MIS L5-S1 | | 2013 | | MED CTR OR INTRA OP | DO [address] | TRANSFORAMINAL | | | | [address] | [place] [address] [place], [place] | LUMBAR INTERBODY | | | | [place] | [id number] | FUSION | | | | [address] | | | | | | [phone] | | | +--------+---------+ + + + [...] Stable for discharge to SNF. DISPOSITION: SNF ([facility]) DISCHARGE MEDICATIONS Medications prior to [...] Take 15 mg by mouth nightl y. Nebo-3 Fatty Acids (FISH OIL CONCENTRATE) 1000 MG [...] + + + +---------+ + + | Nebo-3 Fatty | Take 1,000 mg by | [...] with [facility] any time. aria T Neff RN - 07/04/2014 6:56 PM PDTFoley cath dc'd and MARI drain dc'd no problems. Chris Lynn PA-C - 07/04/2014 7:43 AM PDT [facility] PROGRESS NOTE Pt. Name/Age/: Cindy Arndt 58 y.o. 1955 Med. Record Number: [id number] Date of admission: 07/02/2014 Subjective: The patient [...] medications. D/C plan: Home tomorrow with [facility]. D/c mari drain and riley cath today. D/c frame fixer. Patient Active Problem List Diagnosis LUMBAR DISC [...] by: Chris Nicole, 07/04/2014 7:[address] [facility] Chris Lynn PA-C - 07/03/2014 7:13 AM PDT . [facility] PROGRESS NOTE Pt. Name/Age/: Cindy Arndt 58 y.o. 1955 Med. Record Number: [id number] Date of admission: 07/02/2014 Subjective: The patient [...] Electronically signed by: Chris Nicole, 07/03/2014 7:13 [facility] Ton Johnston, KRIS - 07/03/2014 6:50 AM [...] | | | | | [place] | | | | | | [address] | | | | | | | [...] + | [facility] | [address] | [place], [place] | [phone] | | [facility] | | [address] | | | - LABORATORY | | | | + + + + + | [facility] | [address] | [place], [place] | | | [facility] | | [address] | | | - LABORATORY | | [...] + | [facility] | [address] | [place] | [phone] | | [facility] | | [address] | | | - LABORATORY | | | | + + + + + | [facility] | [address] | [place] | | | [facility] | | [address] | | | - LABORATORY | | [...] + | [facility] | [address] | [place], [place] | [phone] | | [facility] | | [address] | | | - LABORATORY | | | | + + + + + | [facility] | [address] | [place], [place] | | | [facility] | | [address] | | | - LABORATORY | | [...] + | [facility] | [address] | [place] | [phone] | | [facility] | | [address] | | | - LABORATORY | | | | + + + + + | [facility] | [address] | [place], [place] | | | [facility] | | [address] | | | - LABORATORY | | [...] + | [facility] | [address] | [place], [place] | [phone] | | [facility] | | [address] | | | - LABORATORY | | | | + + + + + | [facility] | [address] | [place] | | | [facility] | | [address] | | | - LABORATORY | | [...] + | [facility] | [address] | [place] | [phone] | | [facility] | | [address] | | | - LABORATORY | | | | + + + + + | [facility] | [address] | [place] | | | [facility] | | [address] | | | - LABORATORY | | [...] + + | Performing | Address | City/State/[facility] | Phone Number | | Organization | | | | + + + + + | [facility] | [address] | [place] | [phone] | | [facility] | | [address] | | | - LABORATORY | | | | + + + + + | [facility] | [address] | [place] | | | [facility] | | [address] | | | - LABORATORY | | [...] + | [facility] | [address] | [place] | [phone] | | [facility] | | [address] | | | - LABORATORY | | | | + + + + + | [facility] | [address] | [place] | | | [facility] | | [address] | | | - LABORATORY | | [...] [address] | [place] | [phone] | | [facility] | | [address] | | | - LABORATORY | | | | + + + + + | [facility] | [address] | [place], [place] | | | [facility] | | [address] | | | - LABORATORY | | [...] | of hardware for posterior fusion from Q4bbraude S1 with interbody hardware at L5-S1. The [...] + | MISCELLANEOUS LAB | | | [phone] | + +---------+ + + | MISCELANIOUS LAB | | | [phone] | + +---------+ + + POC Glucose [...] + | [facility] | [address] | [place] | [phone] | | [facility] | | [address] | | | - LABORATORY | | | | + + + + + | [facility] | [address] | [place] | | | [facility] | | [address] | | | - LABORATORY | | [...] + | [facility] | [address] | [place], [place] | [phone] | | [facility] | | [address] | | | - LABORATORY | | | | + + + + + | [facility] | [address] | [place] | | | [facility] | | [address] | | | - LABORATORY | | [...] | | | POC | | | [facility] | | | | | | MEDICAL [...] + | [facility] | [address] | [place] | [phone] | | [facility] | | [address] | | | - LABORATORY | | | | + + + + + | [facility] | [address] | [place] | | | [facility] | | [address] | | | - LABORATORY | | [...] + | [facility] | [address] | [place] | [phone] | | [facility] | | [address] | | | - LABORATORY | | | | + + + + + | [facility] | [address] | [place] | | | [facility] | | [address] | | | - LABORATORY | | [...] + | [facility] | [address] | [place], [place] | [phone] | | [facility] | | [address] | | | - LABORATORY | | | | + + + + + | [facility] | [address] | [place], [place] | | | [facility] | | [address] | | | - LABORATORY | | [...] ST. | [address] | [place] | | | [facility] | | [address] | | | - BLOOD BANK | [...] mLs | | Surgical | | 1:200,000 0.25-1:630608 % | | 14 12:42 | | [...]
--- OUTSIDE RECORDS SUMMARY | ~2019-09-06 | XMS | Encounter Summary ---
Demographics + + + | Address | [address] | | | [place] [address] | + + + | Home Phone [...] [place], [place] | | | | | [address] | | + + + + + Care Team Providers + +------+ + | Care Business Continuity Planner Name | Role | Phone | [...] [place] | | | | | | [address] | | | | | | [phone] | | | +--------+ + + + [...] | | | | [place] | | | | | | [address] | | | | | | | | +--------+---------+ + + + documented as of this encounter Visit Diagnoses Not on filedocumented in this encounter"
--- OUTSIDE RECORDS SUMMARY | ~2019-09-06 | XMS | Encounter Summary ---
Demographics + + + | Address | [address] | | | [place] [address] | + + + | Home Phone [...] [place] | | | | | [address] | | + + + + + Care Team Providers + +------+ + | Care Loan Inspector Name | Role | Phone | + +------+ + | Natalee Andresen NP | PCP | | + +------+ [...] | | | | | | | [address] | | | | | | | Phone: | | | | | | | [phone] | | | | | | | Fax: | | | | | | | [phone] | | +--------+ + + + + + Reason for Visit + + + | Reason | Comments | + + + | Follow-up | 4 Week PO | + + + Encounter Details +--------+---------+ + + + | Date | Type | Department | Care Team | Description | +--------+---------+ + + + | 07/25/ | Office | [facility] | Frandy Teresa, | Lumbar spondylosis | | 2013 | Visit | NEUROSURGERY [address] | DO [address] | (Primary Dx); S/P | | | | [address] [place] [address] | [place] [address] [place], [place] | lumbar fusion | | | | [place], [place] | [address] | | | | | [address] | | | | | | [phone] | | | +--------+---------+ + + + [...] Teresa DO [address] [place], [place] [address] FAX: NEUROSURGERY SURGICAL FOLLOW-UP CHIEF COMPLAINT: Chief [...] Take 15 mg by mouth nightl y. Ava-3 Fatty Acids (FISH OIL CONCENTRATE) 1000 MG [...] [place] | | | | | | [id number] | | | | | | | [...] + | MISCELLANEOUS LAB | | | [phone] | + +---------+ + + | MISCELANIOUS LAB | | | [phone] | + +---------+ + + documented in this encounter Visit Diagnoses + + | Diagnosis | + + | Lumbar spondylosis - Primary Lumbosacral spondylosis without myelopathy | + + | S/P lumbar fusion Arthrodesis status | + + documented in this encounter
--- OUTSIDE RECORDS SUMMARY | ~2019-09-06 | XMS | Encounter Summary ---
Demographics + + + | Address | [address] | | | [place] [address] | + + + | Home Phone [...] [place] | | | | | [address] | | + + + + + Care Team Providers + +------+ + | Care Relay Shop Tester Name | Role | Phone | [...] + + | 08/16/ | Documentati | [facility] | Katharine Moncada, | Other (urgent | | 2019 | on | CARDIOLOGY [place] | Technologist | report) | | | | [address] | | | | | | [place] | | | | | | [address] | | | | | | [phone] | | | +--------+ + + + [...] as of this encounter Progress Notes Katharine oMncada, Technologist - 08/16/2019 7:42 AM PDTReceived urgent [...] [place] | | | | | | [address] | | | | | | | | +--------+---------+ + + + documented as of this encounter Visit Diagnoses Not on filedocumented in this encounter"
--- OUTSIDE RECORDS SUMMARY | ~2019-09-06 | XMS | Encounter Summary ---
Demographics + + + | Address | [address] | | | [place] [address] | + + + | Home Phone [...] [place] | | | | | [address] | | + + + + + Care Team Providers + +------+ + | Care Oil Well Services Dispatcher Name | Role | Phone | [...] | | | spondylolist | | [address] | | | | | hesis | | [place], | | | | | Spinal | | [place] [address] | | | | | stenosis, | | Phone: | | | | | lumbar | | [phone] | | | | | region, | | Fax: | | | | | without | | [phone] | | | | | neurogenic | [...] | | | | [address] | [address] [place] | | | | | [place] | [phone] | | | | | [address] | | | | | | [phone] | | | +--------+ + + + [...] Easy mask AW. DL times one with [facility] 3 easy view | | | 2 | Intubation | | | | 2 | | | | | 6 | | | +----+---+ + + | | 1 | AN Bite | | | | 2 | Block | | | | 2 | | | | | 7 | | | +----+---+ + + | | 1 | [place] | | | | 2 | 43-degrees | | | | 3 | | | | | 1 | | | +----+---+ + + | | 1 | [place] off | | | | 4 | [...] [place] | | | | | | [phone] | | | | | | | [...]
--- OUTSIDE RECORDS SUMMARY | ~2019-09-06 | XMS | Encounter Summary ---
Demographics + + + | Address | [address] | | | [place] [address] | + + + | Home Phone [...] [place] | | | | | [address] | | + + + + + Care Team Providers + +------+ + | Care Mat Roller Name | Role | Phone | [...] | SLEEP DISORDER [address] | [address] | | | | | [address] [place] | [place], [place] | | | | | [place] [address] | [address] | | | | | [phone] | | | +--------+ + + + [...] | | | | | [place] | | | | | | [address] | | | | | | | | +--------+---------+ + + + documented as of this encounter Visit Diagnoses Not on filedocumented in this encounter"
--- OUTSIDE RECORDS SUMMARY | ~2019-09-06 | XMS | Encounter Summary ---
Demographics + + + | Address | [address] | | | [place] [address] | + + + | Home Phone [...] [place] | | | | | [address] | | + + + + + Care Team Providers + +------+ + | Care Collection Teller Name | Role | Phone | [...] | | | | | mellitus, | [address] | [place] | | | | | controlled | Phone: | [address] | | | | | (HCC) | [phone] | Phone: | | | | | History of | Fax: | [phone] | | | | | gastric | [phone] | Fax: | | | | | restrictive | | [phone] | | | | | surgery | [...] | Required | | hypertension | [address] [facility] [facility] | | | | | Lumbar | AVE [place] | [address] | | | | | radiculopath | [place], [place] | AVE | | | | | y Type 2 | [address] | [place] | | | | | diabetes | Phone: | [address] | | | | | mellitus, | [phone] | Phone: | | | | | controlled | Fax: | [phone] | | | | | (HCC) | [phone] | Fax: | | | | | Obesity, | | [phone] | | | | | Class III, [...] | | FORTUNATO & Katharine BUCIO in [place]. 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 Ask [employer] if they think it might be helpful [...] Cont your meds as prescribed. F/U with [employer] as scheduled Neuropathy Continue gabapentin. May consider increase if pain is not controlled. May benefit from switching from Paxil to one of the SNRIs or TCAs for analgesic effects, holly manju, she is doing so well on her current regimen it may not be worth making any changes an d find alternate ways to deal with the pain. Would be worth discussing with [employer] Psych Back Pain Will refer to water therapy (aqua fitness) at [facility] as request ed. ROGERS [...] procedures 4. Schizoaffective disorder, bipolar type ([facility]) 5. Neuropathy Vitamin B-12 6. BACK PAIN, LUMBAR, WITH RADICULOPATHY Ambulatory referral to Physical Therapy 7. ROGERS on CPAP 8. Stroke ([facility]) 9. Environmental and seasonal allergies fluticasone (FLONASE) 50 mcg/nasal spray 10. Gastroesophageal reflux disease without esophagitis dexlansoprazole (DEXILANT) 60 mg D R capsule 11. History of gastric restrictive surgery Vitamin D, 25-Hydroxy Nutrition Services - External - AMB Referral 12. Obesity, Class III, BMI 40-49.9 (morbid obesity) ([facility]) Ambulatory referral to Physical Therapy Nutrition Services - External - AMB Referral 13. Type 2 diabetes mellitus, controlled ([facility]) Ambulatory referral to Physical Therapy Nutrition Services [...] Cont your meds as prescribed. F/U with [employer] as scheduled Neuropathy Continue gabapentin. May consider [...] the pain. Would be worth discussing with [employer] professional. Back Pain Will refer to water therapy (aqua fitness) at [facility] as request ed. Cont home exercise, [...] plan. The above note was dictated using impok voice recognition software. It may have not been proofread in entirety. Minor errors in grammar may occur. CHIEF COMPLAINT Chief Complaint Patient presents with Establish Care Presents to establish care. Former patient of [facility] in [place]. Other Possible stroke January 2015. Is now [...] auditory, at 36. 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 She is now very well controlled on Saphris, Depakote, and Paxi l. She is followed by [facility] in [place]. She has DM2 that is well controlled [...] worked up by steve rowe, Dr [place], [place]. More recently, she presented to ED with [...] N/A; Surgeon: Frandy castellanos DO; Location: [facility] MAIN OR SOCIAL HISTORY History Social [...] mg by mouth Daily. Cholecalciferol (VITAMIN D-3) 29879 units CAPS Oral Take 50,000 Units by [...] Oral Take 10 mg by mouth nightly. [place]-3 Fatty Acids (FISH OIL CONCENTRATE) 1000 MG [...] [place] | | | | | | [id number] | | | | | | | [...] | | | | | controlled ([facility]) | | | | | | Obesity, Class III, | | | | | | BMI 40-49.9 (morbid | | | | | | obesity) ([facility]) | | + + +--------+ + + | Nutrition Services - | Outpatient | Routin | Iron deficiency | Ordered: 03/06/2015 | | External - AMB | Referral | e | anemia Type 2 | | | Referral | | | diabetes mellitus, | | | | | | controlled ([facility]) | | | | | | History of gastric | | | | | | restrictive surgery | | | | | | Obesity, Class III, | | | | | | BMI 40-49.9 (morbid | | | | | | obesity) ([facility]) | | + + +--------+ + + [...] 12 | 7 - 18 mg/dL | [facility] | | | | | | [facility] | | [facility] | [facility] | | | | | | [facility] - | | | | | | LABORATORY | | + + + + + + | Creatinine | 0.66 | 0.60 - 1.30 | [facility] | | | | | mg/dL | [facility] | | | | | | [facility] | | | | | | [facility] - | | | | | | LABORATORY | | + + + + + + | eGFR if not | >60Comment: GLOMERULAR | >=60 | [facility] | | | | FILTRATION | mL/min/1.73m2 | [facility] | | | [place] | RATE,ESTIMATED | | MEDICAL | | | | mL/min/1.90e1Covp than | | CENTER - | | [...] [address] | [place] | [phone] | | [facility] | | [address] | | | - LABORATORY | | [...] | Type 2 diabetes mellitus, controlled ([facility]) Type II or unspecified type diabetes | | mellitus without mention of complication, not stated as uncontrolled | + + | Preventative health care Routine general medical examination at a health care | | facility | + + documented in this encounter
--- OUTSIDE RECORDS SUMMARY | ~2019-09-06 | XMS | Encounter Summary ---
Demographics + + + | Address | [address] | | | [place] [address] | + + + | Home Phone [...] [place] | | | | | [address] | | + + + + + Care Team Providers + +------+ + | Care Travel Physical Therapist Name | Role | Phone [...] + | 03/07/ | Telephone | [facility] | Katharine Cardona PA-C | Results | | 2014 | | [facility] | [address] [place] | | | | | [address] | [place] [address] | | | | | [place], [place] | [phone] | | | | | [address] | | | | | | [phone] | | | +--------+ + + + [...] [place] | | | | | | [address] | | | | | | | | +--------+---------+ + + + documented as of this encounter Visit Diagnoses Not on filedocumented in this encounter"
--- OUTSIDE RECORDS SUMMARY | ~2019-09-06 | XMS | Encounter Summary ---
Demographics + + + | Address | [address] | | | [place] [address] | + + + | Home Phone [...] [place], [place] | | | | | [address] | | + + + + + Care Team Providers + +------+ + | Care Plasterer Foreman Name | Role | Phone | + +------+ + PCP | Unavailable | + +------+ + Encounter Details +--------+ + + + + | Date | Type | Department | Care Team | Description | +--------+ + + + + | 05/23/ | Hospital | [facility] | Dale, Heath E A, | | | 2012 | Encounter | MED CTR XRAY [address] | MD [address] | | | | | [place] | [place] | | | | | [place] [address] | [address] | | | | | [phone] | | | +--------+ + + + [...] + + + +---------+ + + | [place]-3 Fatty | Take 1,000 mg by | [...] [place] | | | | | | [address] | | | | | | | [...] At | + + + | [facility] Diagnostic Imaging Department | [facility] | | [address] | [facility] | | LUMBAR SPINE MR WITHOUT CONTRAST, [...] Transcribed Date/Time: | | | 05/23/2012 16:55 Supplier Quality Engineering Manager: <Electronically Signed | | | by Adriano Anne MD> 05/23/12 5515 | | + + + + + | Procedure Note | + + | Manohar Martinez Conversion - 11/30/2013 5:47 PM [facility] | | Diagnostic Imaging Department [address] [facility] [place] | | LUMBAR SPINE MR WITHOUT CONTRAST, [...] 16:37 | |Transcribed Date/Time: 05/23/2012 16:55 | |Supplier Quality Engineering Manager: | |<Electronically Signed by Adriano Anne [...]
--- OUTSIDE RECORDS SUMMARY | ~2019-09-06 | XMS | Encounter Summary ---
Demographics + + + | Address | [address] | | | [place] [address] | + + + | Home Phone [...] [place] | | | | | [address] | | + + + + + [...] [place] | | | | | | [address] | | | | | | [phone] | | | +--------+ + + + [...] [place] | | | | | | [address] | | | | | | | | +--------+---------+ + + + documented as of this encounter Visit Diagnoses Not on filedocumented in this encounter"
--- OUTSIDE RECORDS SUMMARY | ~2019-09-06 | XMS | Encounter Summary ---
Demographics + + + | Address | [address] | | | [place] [address] | + + + | Home Phone [...] [place] | | | | | [address] | | + + + + + Care Team Providers + +------+ + | Care Building Insulation Supervisor Name | Role | Phone | [...] [place] | | | | | | [address] | | | | | | [phone] | | | +--------+ + + + [...] [place] | | | | | | [address] | | | | | | | | +--------+---------+ + + + documented as of this encounter Visit Diagnoses Not on filedocumented in this encounter"
--- OUTSIDE RECORDS SUMMARY | ~2019-09-06 | XMS | Encounter Summary ---
Demographics + + + | Address | [address] | | | [place] [address] | + + + | Home Phone [...] [place] | | | | | [address] | | + + + + + Care Team Providers + +------+ + | Care Sanitary Plumber Name | Role | Phone | [...] [address] [address] | [address] [place], [place] | Anxiety; Anemia; | | | | [place] | [address] | Irregular heartbeat; | | | | [address] | | Depression; | | | | [phone] | | Migraine; | | | | [...] | | | | | [facility] | | | | | | [address] | | | | | | | [...]
--- OUTSIDE RECORDS SUMMARY | ~2019-09-06 | XMS | Encounter Summary ---
Demographics + + + | Address | [address] | | | [place] [address] | + + + | Home Phone [...] [place], [place] | | | | | [address] | | + + + + + Care Team Providers + +------+ + | Care Outbound Telemarketer Name | Role | Phone | + +------+ + PCP | Unavailable | + +------+ + Encounter Details +--------+ + + + + | Date | Type | Department | Care Team | Description | +--------+ + + + + | 03/26/ | Hospital | [facility] | | | | 2001 | Encounter | MED CTR LABORATORY | | | | | | [address] | | | | | | [place] | | | | | | [address] | | | | | | [phone] | | | +--------+ + + + [...] | | | | | [place] | | | | | | [address] | | | | | | | | +--------+---------+ + + + documented as of this encounter Visit Diagnoses Not on filedocumented in this encounter"
--- OUTSIDE RECORDS SUMMARY | ~2019-09-06 | XMS | Encounter Summary ---
Demographics + + + | Address | [address] | | | [place] [address] | + + + | Home Phone [...] [place] | | | | | [address] | | + + + + + Care Team Providers + +------+ + | Care Glue Mixer Name | Role | Phone | [...] | | | | | | | [address] | | | | | | | Phone: | | | | | | | [phone] | | | | | | | Fax: | | | | | | | [phone] | | +--------+--------+ + + + + Encounter Details +--------+---------+ + + + | Date | Type | Department | Care Team | Description | +--------+---------+ + + + | 02/27/ | Office | [facility] | Baudiloi Newman | Neuropathy (Primary | | 2015 | Visit | NEUROLOGY LAURIE | MD Pollo Need updated | Dx); Sleep apnea; | | | | [address], | address | Stroke (HCC); | | | | [address] [place] | | Thyroid disease | | | | [place] [address] | | | | | | [phone] | | | +--------+---------+ + + + [...] supply of blood, brain tissue quickly dies. [phone] [employer]. [address] [place] [address], [place] [address]. All righ ts reserved. This information is not intended as a substitute for professional medical care. Always follow your healthcare professional's instructions. documented in this encounter Progress Notes Baudilio Newman MD - 02/27/2015 10:31 AM PDTFormatting of this note might be differen t from the original. Baudilio Newman MD [address] [facility] [place] [address] Neurology Outpatient New Patient Note Referring Provider: [...] history. Notes from her recent hospitalization at [facility] were reviewed in detail. Ms. Arndt started [...] systol ically. She was reevaluated in the [facility] ED for one such event and [...] . This specimen was characterized at [facility], but the report is not currently available [...] Laterality: N/A; Surgeon: Frandy castellanos DO; Location: [facility] MAIN OR Current Medications: Outpatient [...] tablet Take 15 mg by mouth nightly. [place]-3 Fatty Acids (FISH OIL CONCENTRATE) 1000 [...] BMI 46.04 kg /m2 Neck Circumference: 14" [place] Sleepiness Scale: 2 General: well developed and [...] Romberg test negative Radiographic Review: CTA from [facility] reviewed on iSITE. No significant stenoses seen [...] No results found for this basename: hba1c, iig2swc, ldl, ldldirect, ldlext, dldlex Lab Results Component [...] | | | | | [place], [place] | | | | | | [id number] | | | | | | | [...]
--- OUTSIDE RECORDS SUMMARY | ~2019-09-06 | XMS | Clinical Summary ---
Demographics + + + | Address | [address] [address] | | | [place] [address] | + + + | Home Phone [...] [place] | | | | | [address] | | + + + + + Care Team Providers + +------+ + | Care Ore Feeder Name | Role | Phone | + +------+ + PCP | Unavailable | + +------+ + Source Comments EDWARD is fully live on both [facility] Ambulatory and [facility] InPatient.[facility] Allergies Not on File Medications [...] | [facility] | xxxxxxxxxx | 02/22/20 | [phone] | [address] | Medica | | | RE A & | | 15-Pre | 1 | [address] | re | | | B | | sent | | [place] | | | | | | | | [address] | | + +--------+ +--------+ + +--------+ [...] Self | [birth year] | | [address] | | al/Fam | | 1955 | [phone] | [address] [place] | | | devonte | | | 5 (Home) | [address] | + +--------+ +--------+ + +"
--- OUTSIDE RECORDS SUMMARY | ~2019-09-06 | XMS | Encounter Summary ---
Demographics + + + | Address | [address] [facility] [address] | | | [place] [address] | + + + | Home Phone [...] [place] | | | | | [address] | | + + + + + Care Team Providers + +------+ + | Care Software Implementation Project Manager Name | Role | Phone [...] | | | | | | [place] [address] | | | | | | [phone] | | | | | | | [...] in | | | | | | [place] with a | | | | | [...] | | | | | | Laboratory, [place], | | | | | | [place], delivered | | | | | | [...] by | | | | | | [id number]-Ojs-[id number]: | | | | | | Increased [...] istryMHC-1: | | | | | | [id number] stain | | | | | | [...] [facility] | [address] | [place] [address] | | | PATHOLOGY | [place] | | | + + + + + documented in this encounter Visit Diagnoses Not on filedocumented in this encounter
--- OUTSIDE RECORDS SUMMARY | ~2019-09-06 | XMS | Encounter Summary ---
Demographics + + + | Address | [address] | | | [place] [address] | + + + | Home Phone [...] [place] | | | | | [address] | | + + + + + Care Team Providers + +------+ + | Care Claims Processor Name | Role | Phone | [...] [place] | | | | | | [address] | | | | | | [phone] | | | +--------+ + + + [...] [place] | | | | | | [address] | | | | | | | | +--------+---------+ + + + documented as of this encounter Visit Diagnoses Not on filedocumented in this encounter"
--- OUTSIDE RECORDS SUMMARY | ~2019-09-06 | XMS | Encounter Summary ---
Demographics + + + | Address | [address] | | | [place] [address] | + + + | Home Phone [...] [place] | | | | | [address] | | + + + + + Care Team Providers + +------+ + | Care Numerical Control Nesting Operator Name | Role | Phone | [...] [place], [place] | | | | | [place], [place] | [address] | | | | | [address] | | | | | | [phone] | | | +--------+ + + + [...] [place] | | | | | | [address] | | | | | | | [...] + | MISCELLANEOUS LAB | | | [phone] | + +---------+ + + | MISCELANIOUS LAB | | | [phone] | + +---------+ + + documented in this encounter Visit Diagnoses + + | Diagnosis | + + | Back pain - Primary Backache, unspecified | + + documented in this encounter"
--- OUTSIDE RECORDS SUMMARY | ~2019-09-06 | XMS | Encounter Summary ---
Demographics + + + | Address | [address] | | | [place] [address] | + + + | Home Phone [...] [place] | | | | | [address] | | + + + + + Care Team Providers + +------+ + | Care Master Deputy Sheriff Court Security Name | Role | Phone | + [...] + + | 08/14/ | Telephone | [facility] | Ashley Chávez | Other (Patient was | | 2019 | | CARDIOLOGY [place] Abad, Evaluation Manager | anxious about urgent | | | | [address] | | reports. ) | | | | [place] | | | | | | [address] | | | | | | [phone] | | | +--------+ + + + [...] [place] | | | | | | [address] | | | | | | | | +--------+---------+ + + + documented as of this encounter Visit Diagnoses Not on filedocumented in this encounter"
--- OUTSIDE RECORDS SUMMARY | ~2019-09-06 | XMS | Encounter Summary ---
Demographics + + + | Address | [address] | | | [place] [address] | + + + | Home Phone [...] [place] | | | | | [address] | | + + + + + Care Team Providers + +------+ + | Care Floor Clerk Name | Role | Phone | [...] | | | | | Procedures | STRAIN TECHNICIAN [address] | [address] | | | | | [place] OFFICE | | [address] | | | | | CONSULTATION | [address] | [place] | | | | | NEW/ESTAB | [facility], | [address] Phone: | | | | | PATIENT [address] | [place] [address] | [phone] | | | | | MIN | Phone: | Fax: | | | | | | [phone] | [phone] | | | | | | Fax: | | | | | | | [phone] | | +--------+--------+ + + + + Encounter Details +--------+---------+ + + + | Date | Type | Department | Care Team | Description | +--------+---------+ + + + | 05/02/ | Office | [facility] | Frandy Teresa, | Spondylolisthesis of | | 2013 | Visit | NEUROSURGERY [address] | DO [address] | lumbar region | | | | [address] | [address] [place], [place] | (Primary Dx); Lumbar | | | | [place], [place] | [id number] | stenosis; Lumbar | | | | [address] | | radicular pain; | | | | [phone] | | Lumbago | +--------+---------+ + + [...] Frandy Teresa DO [address] [facility] [address] [address] [place] [address] FAX: NEUROSURGERY HISTORY AND PHYSICAL EXAMINATION CHIEF [...] 15 mg by mouth nightl y. [place]-3 Fatty Acids (FISH OIL CONCENTRATE) 1000 MG [...] anemia, no fatigue, no recent profound weight tagn es. EYES: No eye problems, + use [...] has no apparent deficits with short or assistant terminal manager memory. CRANIAL NERVES: II: Acuity is [...] Intrinsics 5 5 Ulnar Intrinsics 5 5 Air Crew Member Strength 5 5 Hip Flexion 5 4* [...] | | | | | [place] | | | | | | [address] | | | | | | | [...]
--- OUTSIDE RECORDS SUMMARY | ~2019-09-06 | XMS | Encounter Summary ---
Demographics + + + | Address | [address] | | | [place] [address] | + + + | Home Phone [...] [place] | | | | | [address] | | + + + + + Care Team Providers + +------+ + | Care Career Development Manager Name | Role | Phone [...] | | | | | | | [address] | | | | | | | Phone: | | | | | | | [phone] | | | | | | | Fax: | | | | | | | [phone] | | +--------+ + + + + + Reason for Visit + + + | Reason | Comments | + + + | Follow-up | 4 Week PO | + + + Encounter Details +--------+---------+ + + + | Date | Type | Department | Care Team | Description | +--------+---------+ + + + | 07/25/ | Office | [facility] | Frandy Teresa, | Lumbar spondylosis | | 2013 | Visit | NEUR[address]URGERY [address] | DO [address] | (Primary Dx); S/P | | | | [address] | [address] [place], [place] | lumbar fusion | | | | [place], [place] | [address] | | | | | [address] | | | | | | [phone] | | | +--------+---------+ + + + [...] [address] [facility], [address] [place], [place] [address] FAX: NEUROSURGERY SURGICAL FOLLOW-UP CHIEF COMPLAINT: Chief [...] Take 15 mg by mouth nightl y. [place]-3 Fatty Acids (FISH OIL CONCENTRATE) 1000 MG [...] [place] | | | | | | [id number] | | | | | | | [...] + | MISCELLANEOUS LAB | | | [phone] | + +---------+ + + | MISCELANIOUS LAB | | | [phone] | + +---------+ + + documented in this encounter Visit Diagnoses + + | Diagnosis | + + | Lumbar spondylosis - Primary Lumbosacral spondylosis without myelopathy | + + | S/P lumbar fusion Arthrodesis status | + + documented in this encounter
--- OUTSIDE RECORDS SUMMARY | ~2019-09-06 | XMS | Encounter Summary ---
Demographics + + + | Address | [address] | | | [place] [address] | + + + | Home Phone [...] [place] | | | | | [address] | | + + + + + Care Team Providers + +------+ + | Care Epilepsy Physician Name | Role | Phone [...] [facility] | Katharine Cardona PA-C | Appointment (New | | 2014 | | MEDICINE [address] | [address] [place] | Patient) | | | | [address] [place] | [place] [address] | | | | | [place] [address] | [phone] | | | | | [phone] | | | +--------+ + + + [...] [place] | | | | | | [address] | | | | | | | | +--------+---------+ + + + documented as of this encounter Visit Diagnoses Not on filedocumented in this encounter"
--- OUTSIDE RECORDS SUMMARY | ~2019-09-06 | XMS | Encounter Summary ---
Demographics + + + | Address | [address] | | | [place] [address] | + + + | Home Phone [...] [place] | | | | | [address] | | + + + + + Care Team Providers + +------+ + | Care Travertine Installer Name | Role | Phone | + +------+ + | Basim Bolanos MD | PCP | | + +------+ + Encounter Details +--------+ + + + + | Date | Type | Department | Care Team | Description | +--------+ + + + + | 03/01/ | Abstract | [facility] [place] | [facility], | | | 2012 | | GASTROENTEROLOGY | FORTUNATO Thomas [address] | | | | | [address] | [place], [address] | | | | | [address] [place], [place] | [place], [place] | | | | | [address] | [address] | | | | | [phone] | | | +--------+ + + + [...] [place] | | | | | | [address] | | | | | | | | +--------+---------+ + + + documented as of this encounter Visit Diagnoses Not on filedocumented in this encounter"
--- OUTSIDE RECORDS SUMMARY | ~2019-09-06 | XMS | Encounter Summary ---
Demographics + + + | Address | [address] | | | [place] [address] | + + + | Home Phone [...] [place], [place] | | | | | [address] | | + + + + + Care Team Providers + +------+ + | Care General Dentist Name | Role | Phone | [...] [place] | | | | | | [address] | | | | | | [phone] | | | +--------+ + + + [...] | | | | | [place] | | | | | | [address] | | | | | | | | +--------+---------+ + + + documented as of this encounter Visit Diagnoses Not on filedocumented in this encounter"
--- OUTSIDE RECORDS SUMMARY | 2019-09-06 11:42 | XMS ---
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 Security Nutrition Services Aide Events No recent Security Events currently on file CRITERIA MET - 6 ED Visits in 6 Months - [facility] - Has Care Guidelines - PDMP - [facility] - 2 Visits in 30 Days CARE PROVIDERS Kenny Palafox DO [facility] Current PHONE: Unknown Jose Ag [facility] 01/31/2019-Current PHONE: Unknown [facility] Provider Current PHONE: [phone] Guidelines Source: [facility] Radha Negrete Guidelines Date: 03/13/2019 Care Coordination: Mental health services are being provided by [facility].\T\nbsp; Please contact [facility] with mental health concerns.\T\nbsp; [facility] \T\nbsp; Moshe: [phone]. Care History Medical/Surgical 07/02/2019 [facility] - PATIENT HAS AN APT WITH [facility] ON 07/19/19. 05/08/2019 [facility] - PATIENT HAS A COFFEE GRINDER - DR DESHAUN CUEVA -[facility] [phone]. - PATIENT IS WORKING CLOSELY WITH [employer] IN REGARDS TO PSYCHIATRIC MEDICATIONS. ANY PSYCHIATRIC MED CHANGES AND OR ADJUSTMENTS WILL NEED TO BE REVIEWED BY CATH LABORATORY TECHNICIAN AT [employer]. 04/11/2019 [facility] - PATIENT HAS AN APT WITH DR ALAS ON 04/25/19. E.D. VISIT COUNT (12 MO.) 17 [facility] TOTAL 17 NOTE: Visits indicate total known visits. ED/UCC VISIT TRACKING (12 MO.) 09/06/2019 11:40 [facility] [place] TYPE: Emergency COMPLAINT: - MEDICAL CLEARANCE 08/15/2019 15:26 [facility] [place] TYPE: Emergency COMPLAINT: - DIZZINESS DIAGNOSES: - Schizoaffective disorder, unspecified - Other exterminator helper termite (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 - 1 Type 2 diabetes mellitus without complications - Allergy status to oth drug/meds/biol subst status - Old myocardial infarction - Essential (primary) hypertension - Gastro-esophageal reflux disease without esophagitis - Syncope and collapse - Allergy status to sulfonamides status 07/05/2019 09:03 [facility] [place] TYPE: Emergency COMPLAINT: - SYNCOPE DIAGNOSES: - Old myocardial infarction - Essential (primary) hypertension - Prsnl hx of TIA (TIA), and 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 - Other exterminator helper termite (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 - Allergy status to [...] Allergy status to sulfonamides status - Other long-term (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 - Allergy status to [...] status to narcotic agent status - Other long-term (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 - Schizophrenia, unspecified 05/10/2019 14:24 [facility] [place] TYPE: Emergency COMPLAINT: - MEDICAL CLEARANCE DIAGNOSES: - Acquired absence of other specified parts of digestive tract - 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 - Gastro-esophageal reflux disease without esophagitis - Other exterminator helper termite (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 - Allergy status to oth drug/meds/biol subst status - keno terminal operator (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 of 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 - [...] Allergy status to sulfonamides status - Other long-term (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 - Essential (primary) hypertension [...] deficits - Old myocardial infarction - Other long-term (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 - Allergy status to sulfonamides status - Other chest pain 05/02/2019 13:59 [facility] [place] TYPE: Emergency COMPLAINT: - VOMITING, CHEST PAIN, WEAKNESS DIAGNOSES: - Allergy status to sulfonamides status - custodial (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 of 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 - [...] of urea cycle metabolism, unspecified - Other long-term (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 - Acquired absence of other specified parts of digestive tract - Essential (primary) hypertension 04/03/2019 12:30 [facility] [place] TYPE: Emergency COMPLAINT: - TROUBLE BREATHING DIAGNOSES: - Allergy status to oth drug/meds/biol subst status - Other exterminator helper termite (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 - Allergy status to [...] tract - Essential (primary) hypertension - Other long-term (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 - Prsnl hx of [...] Allergy status to sulfonamides status - Other long-term (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 - Allergy status to [...] PAIN DIAGNOSES: - Essential (primary) hypertension - custodial (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 of 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 - Other exterminator helper termite (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 - Allergy status to sulfonamides status - Gastro-esophageal reflux disease without esophagitis - Allergy status to other antibiotic agents status - Prsnl hx of TIA (TIA), and 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 - Other chest pain - Cough - Allergy status to oth drug/meds/biol subst status 01/09/2019 12:12 [facility] [place] TYPE: Emergency COMPLAINT: - MEDICAL CLEARANCE DIAGNOSES: - Gastro-esophageal reflux disease without esophagitis - Bariatric surgery status - custodial (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 - Other exterminator helper termite (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 - Suicidal ideations - [...] MO.) 05/16/2019 11:50 Edilberto PINEDA [place] TYPE: [facility] COMPLAINT: - SCHIZOAFFECTIVE D/O DIAGNOSES: - Schizoaffective disorder, unspecified [email or web address]
== END 2019-09-06 14:36 | disposition home or self-care (01) ==
LOC: ED 11:40
DX: R44.0 Auditory hallucinations (principal); I10 Essential (primary) hypertension; E11.9 Type 2 diabetes mellitus without complications; I25.2 Old myocardial infarction; K21.9 Gastro-esophageal reflux disease without esophagitis; Z88.2 Allergy status to sulfonamides; Z88.8 Allergy status to other drugs, medicaments and biological substances; Z79.899 Other long term (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
CPT/HCPCS: 80053; 80176; 81001; 84443; 85025; 99284; G0480

== ENCOUNTER 2019-09-18 10:32 | Emergency (ER) | payer MEDICARE ==
[~2019-09-18] VITALS: Ht 170.2 cm; Wt 134.6 kg
--- OUTSIDE RECORDS SUMMARY | ~2019-09-18 | XMS | Encounter Summary ---
Demographics + + + | Address | [address] | | | [place] [address] | + + + | Home Phone | | + + + | Preferred Language | Unknown | + + + | Marital Status | | + + + | Gnosticist Affiliation | 1013 | + + + | Race | Unknown | + + + | Ethnic Group | Unknown | + + + Author + + + | Author | [facility] | | | and [place] | + + + | Organization | [facility] | | | and [place] | + + + | Address | Unknown | + + + | Phone | Unavailable | + + + Support + + + + + | Name | Relationship | Address | Phone | + + + + + | Araceli Sibley | ECON | [place], [place] | | | | | [address] | | + + + + + Care Team Providers + +------+ + | Care Telephone Maintainer Name | Role | Phone | + +------+ + PCP | Unavailable | + +------+ + Encounter Details +--------+ + + + + | Date | Type | Department | Care Team | Description | +--------+ + + + + | 01/16/ | Hospital | [facility] | | | | 2002 | Encounter | MED CTR XRAY [address] | | | | | | [address] | | | | | | [place] [address] | | | | | | [phone] | | | +--------+ + + + [...] | | | | | [place] | | | | | | [address] | | | | | | | | +--------+---------+ + + + documented as of this encounter Visit Diagnoses Not on filedocumented in this encounter"
--- OUTSIDE RECORDS SUMMARY | ~2019-09-18 | XMS | Encounter Summary ---
Demographics + + + | Address | [address] | | | [place] [address] | + + + | Home Phone | | + + + | Preferred Language | Unknown | + + + | Marital Status | | + + + | Presybeterian Affiliation | 1013 | + + + [...] [place], [place] | | | | | [address] | | + + + + + Care Team Providers + +------+ + | Care Nurse Reviewer Name | Role | Phone | + +------+ + PCP | Unavailable | + +------+ + Encounter Details +--------+ + + + + | Date | Type | Department | Care Team | Description | +--------+ + + + + | 05/29/ | Hospital | [facility] | | | | 1991 | Encounter | MED CTR LABORATORY | | | | | | [address] | | | | | | [place] | | | | | | [address] | | | | | | [phone] | | | +--------+ + + + [...] | | | | | [place] | | | | | | [address] | | | | | | | | +--------+---------+ + + + documented as of this encounter Visit Diagnoses Not on filedocumented in this encounter"
--- OUTSIDE RECORDS SUMMARY | ~2019-09-18 | XMS | Encounter Summary ---
Demographics + + + | Address | [address] | | | [place] [address] | + + + | Home Phone | | + + + | Preferred Language | Unknown | + + + | Marital Status | | + + + | Congregation Affiliation | 1013 | + + + | Race | Unknown | + + + | Ethnic Group | Unknown | + + + Author + + + | Author | [facility] | | | and [place] | + + + | Organization | [facility] | | | and [place] | + + + | Address | Unknown | + + + | Phone | Unavailable | + + + Support + + + + + | Name | Relationship | Address | Phone | + + + + + | Araceli Sibley | ECON | [place], [place] | | | | | [address] | | + + + + + Care Team Providers + +------+ + | Care [employer] Principal Name | Role | Phone | + +------+ + PCP | Unavailable | + +------+ + Encounter Details +--------+ + + + + | Date | Type | Department | Care Team | Description | +--------+ + + + + | 02/22/ | Hospital | [facility] | | | | 1996 - | Encounter | MED CTR GENERIC PSY | | | | | | CONV DEPT [address] | | | | 02/26/ | | [address], | | | | 1996 | | [place] [address] | | | | | | [phone] | | | +--------+ + + + [...] [place] | | | | | | [address] | | | | | | | | +--------+---------+ + + + documented as of this encounter Visit Diagnoses Not on filedocumented in this encounter"
--- OUTSIDE RECORDS SUMMARY | ~2019-09-18 | XMS | Encounter Summary ---
Demographics + + + | Address | [address] | | | [place] [address] | + + + | Home Phone | | + + + | Preferred Language | Unknown | + + + | Marital Status | | + + + | Yarsani Affiliation | 1013 | + + + | Race | Unknown | + + + | Ethnic Group | Unknown | + + + Author + + + | Author | [facility] | | | and [place] | + + + | Organization | 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 | | | 2011 | | Conversion Location | SR | | | | | [phone] | | | +--------+ + + + [...] + + + | Blood Pressure | 120/72 | 06/06/2012 12:00 AM | | | | | PDT | | + + + + + | Pulse | - | - | | + + + + + | Temperature | - | - | | + + + + + | Respiratory Rate | - | - | | + + + + + | Oxygen Saturation | - | - | | + + + + + | Inhaled Oxygen | - | - | | | Concentration | | | | + + + + + | Weight | 144.2 kg (317 lb | 06/06/2012 12:00 AM | | | | 14.4 oz) | PDT | | + + + + + | Height | 168.9 cm (5' 6.5") | 02/28/2012 12:00 AM | | | | | PDT | | + + + + + | Body Mass Index | 50.54 | 02/28/2012 12:00 AM | | | | | PDT | | + + + + + documented in this encounter Plan of Treatment +--------+---------+ + + + | Date | Type | Specialty | Care Team | Description | +--------+---------+ + + + | 10/11/ | Office | Cardiology | Desiree Peterson DO | | | 2019 | Visit | | [address] | | | | | | [place] | | | | | | [address] | | | | | | | | +--------+---------+ + + + documented as of this encounter Visit Diagnoses Not on filedocumented in this encounter
--- OUTSIDE RECORDS SUMMARY | ~2019-09-18 | XMS | Encounter Summary ---
Demographics + + + | Address | [address] | | | [place] [address] | + + + | Home Phone | | + + + | Preferred Language | Unknown | + + + | Marital Status | | + + + | Yazdanism Affiliation | 1013 | + + + | Race | Unknown | + + + | Ethnic Group | Unknown | + + + Author + + + | Author | [facility] | | | and [place] | + + + | Organization | [facility] | | | and [place] | + + + | Address | Unknown | + + + | Phone | Unavailable | + + + Support + + + + + | Name | Relationship | Address | Phone | + + + + + | Araceli Sibley | ECON | [place] | | | | | [address] | | + + + + + Care Team Providers + +------+ + | Care Transmission Tester Name | Role | Phone | + [...] + + | 08/15/ | Documentati | [facility] | Katharine Moncada, | Other (urgent | | 2019 | on | CARDIOLOGY [place] | Technologist | report) | | | | [address] | | | | | | [place] | | | | | | [address] | | | | | | [phone] | | | +--------+ + + + [...] [place] | | | | | | [address] | | | | | | | | +--------+---------+ + + + documented as of this encounter Visit Diagnoses Not on filedocumented in this encounter"
--- OUTSIDE RECORDS SUMMARY | ~2019-09-18 | XMS | Encounter Summary ---
Demographics + + + | Address | [address] | | | [place] [address] | + + + | Home Phone | | + + + | Preferred Language | Unknown | + + + | Marital Status | | + + + | Quaker Affiliation | 1013 | + + + | Race | Unknown | + + + | Ethnic Group | Unknown | + + + Author + + + | Author | [facility] | | | and [place] | + + + | Organization | [facility] | | | and [place] | + + + | Address | Unknown | + + + | Phone | Unavailable | + + + Support + + + + + | Name | Relationship | Address | Phone | + + + + + | Araceli Sibley | ECON | [place] | | | | | [address] | | + + + + + Care Team Providers + +------+ + | Care Eligibility Supervisor Name | Role | Phone | + +------+ + | Adriano Patrick MD | PCP | | + +------+ + Reason for Visit +--------+ + | Reason | Comments | +--------+ + | Other | 4 week event monitor | +--------+ + Encounter Details +--------+ + + + + | Date | Type | Department | Care Team | Description | +--------+ + + + + | 08/09/ | Clinical | [facility] | Desiree Peterson DO | Syncope, unspecified | | 2019 | Support | CARDIOLOGY [place] | [address] | syncope type | | | | [address] | [place], [place] | | | | | [place] [address] | [address] | | | | | [place] | | | | | | [address] | [place] | | | | | [phone] | CAROLINE Mendez [address] | | | | | [address] | | | | | | [place] [address] | | | | | | [phone] | | | | | | | [...] documented as of this encounter Progress Notes Cindy Nicholas CMA - 08/09/2019 3:00 PM PDT4 weeks cardiac event monitor placed on adriana ent. EOB/Billing information discussed. Instructions given and understood.Electronically sig armando by Cindy Nicholas CMA at 08/09/2019 2:44 PM PDTdocumented in this encounter Plan of Treatment +--------+---------+ + + + | Date | Type | Specialty | Care Team | Description | +--------+---------+ + + + | 10/11/ | Office | Cardiology | Desiree Peterson DO | | | 2018 | Visit | | [address] | | | | | | [place] | | | | | | [address] | | | | | | | | +--------+---------+ + + + documented as of this encounter Visit Diagnoses + + | Diagnosis | + + | Syncope, unspecified syncope type | + + documented in this encounter"
--- OUTSIDE RECORDS SUMMARY | ~2019-09-18 | XMS | Encounter Summary ---
Demographics + + + | Address | [address] | | | [place] [address] | + + + | Home Phone [...] + + | Author | [facility] | | | and [place] | + + + | Organization | [facility] [...] [place] | | | | | [address] | | + + + + + Care Team Providers + +------+ + | Care Clean Up Supervisor Name | Role | Phone | [...] + + | 09/10/ | Documentati | [facility] | Katharine Moncada, | Other (urgent | | 2019 | on | CARDIOLOGY [place] | Technologist | report) | | | | [address] | | | | | | [place] | | | | | | [address] | | | | | | [phone] | | | +--------+ + + + [...] Progress Notes Katharine Moncada, Technologist - 09/10/2019 10:35 AM PSTReceived urgent report 09/10/19 Pt had a self triggered 08/25/19 at 22:37 107 BPM, activity: none 30 day monitor was [...] [place] | | | | | | [id number] | | | | | | | | +--------+---------+ + + + documented as of this encounter Visit Diagnoses Not on filedocumented in this encounter"
--- OUTSIDE RECORDS SUMMARY | ~2019-09-18 | XMS | Encounter Summary ---
Demographics + + + | Address | [address] | | | [place] [address] | + + + | Home Phone | | + + + | Preferred Language | Unknown | + + + | Marital Status | | + + + | Alevism Affiliation | 1013 | + + + | Race | Unknown | + + + | Ethnic Group | Unknown | + + + Author + + + | Author | [facility] | | | and [place] | + + + | Organization | [facility] | | | and [place] | + + + | Address | Unknown | + + + | Phone | Unavailable | + + + Support + + + + + | Name | Relationship | Address | Phone | + + + + + | Araceli Sibley | ECON | [place] | | | | | [address] | | + + + + + Care Team Providers + +------+ + | Care Marquetry Worker Name | Role | Phone | [...] + + | 09/10/ | Documentati | [facility] | Katharine Moncada, | Other (urgent | | 2019 | on | CARDIOLOGY [place] | Technologist | report) | | | | [address] | | | | | | [place] | | | | | | [address] | | | | | | [phone] | | | +--------+ + + + [...] Progress Notes Katharine Moncada, Technologist - 09/10/2019 9:44 AM PSTReceived urgent report 09/10/19 Pt had a self triggered 08/27/19 at 09:31 92 BPM 30 day monitor was placed 08/09/19 Medication:metFORMIN [...] [place] | | | | | | [address] | | | | | | | | +--------+---------+ + + + documented as of this encounter Visit Diagnoses Not on filedocumented in this encounter"
--- OUTSIDE RECORDS SUMMARY | ~2019-09-18 | XMS | Encounter Summary ---
Demographics + + + | Address | [address] | | | [place] [address] | + + + | Home Phone | | + + + | Preferred Language | Unknown | + + + | Marital Status | | + + + | Mandaeism Affiliation | 1013 | + + + [...] [place], [place] | | | | | [address] | | + + + + + Care Team Providers + +------+ + | Care Feeder Associate Name | Role | Phone | + +------+ + PCP | Unavailable | + +------+ + Encounter Details +--------+ + + + + | Date | Type | Department | Care Team | Description | +--------+ + + + + | 02/28/ | Hospital | [facility] | Deon Gonzales | | | 2011 | Encounter | MED CTR SLEEP | MD [place] | | | | | [place] [address] | [place] | | | | | [place], [place] | [place] [address] | | | | | [address] | [phone] | | | | | [phone] | | | +--------+ + + + [...] [place] | | | | | | [id number] | | | | | | | | +--------+---------+ + + + documented as of this encounter Visit Diagnoses Not on filedocumented in this encounter"
--- OUTSIDE RECORDS SUMMARY | ~2019-09-18 | XMS | Encounter Summary ---
Demographics + + + | Address | [address] | | | [place] [address] | + + + | Home Phone | | + + + | Preferred Language | Unknown | + + + | Marital Status | | + + + | Temple Affiliation | 1013 | + + + | Race | Unknown | + + + | Ethnic Group | Unknown | + + + Author + + + | Author | [facility] | | | and [place] | + + + | Organization | [facility] | | | and [place] | + + + | Address | Unknown | + + + | Phone | Unavailable | + + + Support + + + + + | Name | Relationship | Address | Phone | + + + + + | Araceli Sibley | ECON | [place] | | | | | [address] | | + + + + + Care Team Providers + +------+ + | Care Elementary Reading Tutor Name | Role | Phone | + +------+ + | Natalee Andersen NP | PCP | | + +------+ + Encounter Details +--------+ + + + + | Date | Type | Department | Care Team | Description | +--------+ + + + + | 06/25/ | Hospital | [facility] | Latricia Feliciano | | | 2014 | Encounter | MED CTR ACUTE | D, PT [address] | | | | | PHYSICAL THERAPY | [place] | | | | | [address] | [address] | | | | | [place] [address] | | | | | | [phone] | | | +--------+ + + + [...] + + + +---------+ + + | Vinson-3 Fatty | Take 1,000 mg by | [...] [place] | | | | | | [address] | | | | | | | | +--------+---------+ + + + documented as of this encounter Visit Diagnoses Not on filedocumented in this encounter"
--- OUTSIDE RECORDS SUMMARY | ~2019-09-18 | XMS | Encounter Summary ---
Demographics + + + | Address | [address] | | | [place] [address] | + + + | Home Phone | | + + + | Preferred Language | Unknown | + + + | Marital Status | | + + + | Caodaism Affiliation | 1013 | + + + [...] [place] | | | | | [address] | | + + + + + Care Team Providers + +------+ + | Care Emergency Management Program Specialist Name | Role | Phone | + +------+ + | Natalee Andersen NP | PCP | | + +------+ + Reason for Visit +--------+ + | Reason | Comments | +--------+ + | Other | surgery reminder | +--------+ + Encounter Details +--------+ + + + + | Date | Type | Department | Care Team | Description | +--------+ + + + + | 06/20/ | Telephone | [facility] | Frandy Teresa, | Other (surgery | | 2013 | | NEUROSURGERY [address] | DO [address] | reminder ) | | | | [address] [place] [address] | [place] [address] [place], [place] | | | | | [place], [place] | [address] | | | | | [address] | | | | | | [phone] | | | +--------+ + + + [...] | | | | | [place] | | | | | | [address] | | | | | | | | +--------+---------+ + + + documented as of this encounter Visit Diagnoses Not on filedocumented in this encounter"
--- OUTSIDE RECORDS SUMMARY | ~2019-09-18 | XMS | Encounter Summary ---
Demographics + + + | Address | [address] | | | [place] [address] | + + + | Home Phone [...] [place] | | | | | [address] | | + + + + + Care Team Providers + +------+ + | Care Recruiting Associate Name | Role | Phone | [...] + | 03/07/ | Telephone | [facility] | Katharine Cardona PA-C | Results | | 2014 | | [facility] | [address] | | | | | [address] | [place] [address] | | | | | [place], [place] | [phone] | | | | | [address] | | | | | | [phone] | | | +--------+ + + + [...] [place] | | | | | | [address] | | | | | | | | +--------+---------+ + + + documented as of this encounter Visit Diagnoses Not on filedocumented in this encounter"
--- OUTSIDE RECORDS SUMMARY | ~2019-09-18 | XMS | Encounter Summary ---
Demographics + + + | Address | [address] | | | [place] [address] | + + + | Home Phone [...] [place] | | | | | [address] | | + + + + + Care Team Providers + +------+ + | Care Pharmaceutical Laboratory Technician Name | Role | Phone | + +------+ + | Natalee Andersen NP | PCP | | + +------+ + Encounter Details +--------+---------+ + + + | Date | Type | Department | Care Team | Description | +--------+---------+ + + + | 06/25/ | Surgery | [facility] | Frandy Teresa, | Canceled | | 2013 | | MED CTR OR INTRA OP | DO [address] | PROCEDURE NOT | | | | [address] | [address] [place], [place] | PERFORMED | | | | [place], [place] | [address] | | | | | [address] | | | | | | [phone] | | | +--------+---------+ + + + [...] + + + +---------+ + + | [place]-3 Fatty | Take 1,000 mg by | [...] | | | | | [place], [place] | | | | | | [id number] | | | | | | | [...] mL/min/1.73m2 | [facility] | | | [facility] | RATE,ESTIMATED | | MEDICAL | | | | mL/min/1.85w3Tzck than | | CENTER - | | [...] + | [facility] | [address] | [place] | [phone] | | [facility] | | [address] | | | - LABORATORY | | | | + + + + + | [facility] | [address] | [place] | | | [facility] | | [address] | | | - LABORATORY | | [...] + | [facility] | [address] | [place] | [phone] | | [facility] | | [address] | | | - LABORATORY | | | | + + + + + | [facility] | [address] | [place] | | | [facility] | | [address] | | | - LABORATORY | | [...] [address] | [place] | [phone] | | [facility] | | [address] | | | - LABORATORY | | | | + + + + + | [facility] | [address] | [place], [place] | | | [facility] | | [address] | | | - LABORATORY | | [...] | | Screen | | | [facility] | | [...] [place] | | | [facility] | | [address] | | | - BLOOD BANK | [...] | + + + + + | [facility] | [address] | [place], [place] | [phone] | | [facility] | | [address] | | | - LABORATORY | | | | + + + + + | [facility] | [address] | [place], [place] | | | [facility] | | [address] | | | - LABORATORY | | [...]
--- OUTSIDE RECORDS SUMMARY | ~2019-09-18 | XMS | Encounter Summary ---
Demographics + + + | Address | [address] | | | [place] [address] | + + + | Home Phone [...] [place] | | | | | [address] | | + + + + + Care Team Providers + +------+ + | Care Registered Nurse Renal Name | Role | Phone | + +------+ + | Adriano Patrick MD | PCP | | + +------+ + Reason for Visit + + + | Reason | Comments | + + + | Chest Pain | | + + + Encounter Details +--------+ + + + + | Date | Type | Department | Care Team | Description | +--------+ + + + + | 07/06/ | Emergency | [facility] | Yunior Sherman, | Chest pain, | | 2014 | | MED CTR EMERGENCY | MD [address] | unspecified chest | | | | CENTER [address] | [place], [place] | pain type (Primary | | | | [place], [place] | [address] | Dx) | | | | [address] | | | | | | [phone] | | | +--------+ + + + [...] this encounter Last Filed Vital Signs + +---------+ + + | Vital Sign | Reading | Time Taken | Comments | + +---------+ + + | Blood Pressure | 135/72 | 07/06/2015 5:07 PM | | | | | PDT | | + +---------+ + + | Pulse | 108 | 07/06/2015 5:07 PM | | | | | PDT | | + +---------+ + + | Temperature | - | - | | + +---------+ + + | Respiratory Rate | 20 | 07/06/2015 5:07 PM | | | | | PDT | | + +---------+ + + | Oxygen Saturation | 92% | 07/06/2015 5:07 PM | | | | | PDT | | + +---------+ + + | Inhaled Oxygen | - | - | | | Concentration | | | | + +---------+ + + | Weight | - | - | | + +---------+ + + | Height | - | - | | + +---------+ + + | Body Mass Index | - | - | | + +---------+ + + documented in this encounter Discharge Instructions AttachmentsThe following attachments cannot be sent through Care Everywhere.CHEST PAIN, NON CARDIAC (OCCITAN)documented in this encounter Medications at Time of Discharge + + + +---------+ + + | Medication | Sig | Dispensed | Refills | Start | End Date | | | | | | Date | | + + + +---------+ + + | B Complex Vitamins | Take by mouth. | | 0 | | | | (VITAMIN B COMPLEX | | | | | | | PO) | | | | | | + + + +---------+ + + | Cholecalciferol | Take 50,000 Units by | | 0 | | | | (VITAMIN D-3) [address] | mouth Once a week. | | [...] | | | | | | | ([facility]) | | | | | | + [...] (SAPHRIS) 10 mg SL | the tongue Daily. | | | | 9 | | tablet | | | | | | + + + +---------+ + + | | Take 1 capsule by | | 0 | | | | aspirin-dipyridamole | mouth 2 times daily. | | | | 9 | | (AGGRENOX) 25-200 | | | | | | | mg per 12 hr capsule | | | | | | + + + +---------+ + + | atenolol | Take 25 mg by mouth | | 0 | | | | (TENORMIN) 25 mg | Daily. | | | | 9 | | tablet | | | | | | + + + +---------+ + + | Calcium Carbonate | Take by mouth. | | 0 | | | | Antacid (TUMS E-X | | | | | 9 | | 750 PO) | | | | | | + + + +---------+ + + | CALCIUM CITRATE PO | Take 500 mg by mouth | | 0 | | | | | Daily. | | | | 9 | + + + +---------+ + + | Cyanocobalamin | Take by mouth. | | 0 | | | | (VITAMIN B-12 PO) | | | | | 9 | + + + +---------+ + + | dexlansoprazole | Take 60 mg by mouth | | 0 | | | | (DEXILANT) [address] | Daily. | | | | 9 | | capsule | | | | | | + + + +---------+ + + | Digestive Enzymes | Take by mouth. | | 0 | | | | (PAPAYA ENZYME) CHEW | | | | | 9 | + + + +---------+ + + | divalproex | Take 250 mg by | | 0 | | | | (DEPAKOTE) 250 mg EC | mouth. | | | | 9 | | tablet | | | | | | + + + +---------+ + + | fluocinonide | Apply to affected | | 0 | 03/29/20 | | | (LIDEX) 0.05 % | area twice daily as | | | 12 | 9 | | ointment | needed | | | | | + + + +---------+ + + | furosemide (LASIX) | Take 40 mg by mouth | | 0 | | | | 40 mg tablet | Daily. | | | | 9 | + + + +---------+ + + | gabapentin | Take 300 mg by mouth | | 0 | | | | (NEURONTIN) 300 mg | 3 times daily. | | | | 9 | | capsule | | | | | | + + + +---------+ + + | | Take 25 mg by mouth | | 0 | | | | hydrochlorothiazide | Daily. | | | | 9 | | 25 mg tablet | | [...] + + + +---------+ + + | naproxen sodium | Take 220 mg by mouth | | 0 | | | | (ALEVE) 220 MG | every 12 hours. | | | | 9 | | tablet | | | | | | + + + +---------+ + + | [place]-3 Fatty | Take 1,000 mg by | [...] | | | oxyCODONE-acetaminop | mouth every 6 hours | | | | 9 | | hen (PERCOCET) | as needed [...] + + + +---------+ + + | Triamcinolone | by Nasal route. | | 0 | | | | Acetonide (NASACORT | | | | | 9 | | AQ NA) | | | | | | + [...] [place] | | | | | | [address] | | | | | | | | +--------+---------+ + + + documented as of this encounter Procedures + +--------+ + + + | Procedure Name | Priori | Date/Time | Associated Diagnosis | Comments | | | ty | | | | + +--------+ + + + | EXTRA GOLD TOP TUBE | Routin | 07/06/2015 | | Results for this | | | e | 4:22 PM | | procedure are in the | | | | PDT | | results section. | + +--------+ + + + | XR CHEST AP PORTABLE | STAT | 07/06/2015 | | Results for this | | | | 3:50 PM | | procedure are in the | | | | PDT | | results section. | + +--------+ + + + | TROPONIN I | STAT | 07/06/2015 | | Results for this | | | | 3:45 PM | | procedure are in the | | | | PDT | | results section. | + +--------+ + + + | D-DIMER | STAT | 07/06/2015 | | Results for this | | | | 3:45 PM | | procedure are in the | | | | PDT | | results section. | + +--------+ + + + | CBC NO DIFFERENTIAL | STAT | 07/06/2015 | | Results for this | | | | 3:45 PM | | procedure are in the | | | | PDT | | results section. | + +--------+ + + + | BASIC METABOLIC | STAT | 07/06/2015 | | Results for this | | PANEL | | 3:45 PM | | procedure are in the | | | | PDT | | results section. | + +--------+ + + + | ECG 12 LEAD | STAT | 07/06/2015 | | Results for this | | | | 3:27 PM | | procedure are in the | | | | PDT | | results section. | + +--------+ + + + documented in this encounter Results EXTRA GOLD TOP TUBE (07/06/2015 4:22 PM PDT) + +-------+ + + + | Component | Value | Ref Range | Performed | Pathologist | | | | | At | Signature | + +-------+ + + + | Extra Gold | Done | | [facility] | | | Top Tube | | | [facility] | | [...] ST. | [address] | [place] | [phone] | | [facility] | | [address] | | | - LABORATORY | | | | + + + + + XR Chest AP Portable (07/06/2015 3:50 PM PDT) + + | Specimen | + + | | + + + + + | Narrative | Performed At | + + + | EXAM: XR CHEST AP PORTABLE dated 07/06/2015 3:43 PM HISTORY: cp | [facility] | | Comparison: None. TECHNIQUE: A single portable view of the | | | chest. FINDINGS: The lungs are symmetrically aerated. They are | | | clear. There are no large pleural effusions. There is no | | | pneumothorax. The cardiac and mediastinal contours are not | | | enlarged. The visible osseous structures are unremarkable. | | | IMPRESSION - No acute disease. Dictated and Signed by: Tyrese Larsen MD Electronically signed: 07/06/2015 4:04 PM | | + + + + + | Procedure Note | + + | Juan, Rad Results In - 07/06/2015 4:07 PM PDT EXAM: XR CHEST AP PORTABLE dated | | 07/06/2015 3:43 PMHISTORY: cpComparison: None.TECHNIQUE: A single portable view of the | | chest.FINDINGS:The lungs are symmetrically aerated. They are clear. There are no | | largepleural effusions. There is no pneumothorax. The cardiac and mediastinalcontours | | are not enlarged. The visible osseous structures are unremarkable. IMPRESSION -No | | acute disease. Dictated and Signed by: Tyrese Larsen MD Electronically signed: | | 07/06/2015 4:04 PM | | | |FINDINGS: | |The lungs are symmetrically aerated. They are clear. There are no large | |pleural effusions. There is no pneumothorax. The cardiac and mediastinal | |contours are not enlarged. The visible osseous structures are unremarkable. | | | |IMPRESSION - | | | |No acute disease. | | | |Dictated and Signed by: Tyrese Larsen MD | | Electronically signed: 07/06/2015 4:04 PM | + + + +---------+ + + | Performing | Address | City/State/Zipcode | Phone Number | | Organization | | | | + +---------+ + + | [facility] | | | | + +---------+ + + D-Dimer (07/06/2015 3:45 PM PDT) + + + + + + | Component | Value | Ref Range | Performed | Pathologist | | | | | At | Signature | + + + + + + | D-Dimer | 0.42Comment: This | <=0.50 ug/ml | [facility] | | | Quantitativ | quantitative D-Dimer | | [facility] | | | e | assay has been evaluated | | MEDICAL | | | | for screening for | | CENTER - | | | | venous thrombotic | | LABORATORY | | | | disease, and may be | | | | | | useful in ruling out, | | | | | | but not ruling in | | | | | | disease. Values less | | | | | | than 0.50 ug/mL FEU | | | | | | (Fibrinogen Equivalent | | | | | | Units) have a negative | | | | | | predictive value of | | | | | | approximately 95% for | | | | | | ruling out large | | | | | | pulmonary emboli or | | | | | | proximal deep vein | | | | | | thrombosis. Distal DVT | | | | | | are not excluded. An | | | | | | elevated D-dimer can be | | | | | | present in patients with | | | | | | liver disease, | | | | | | , eclampsia, | | | | | | heart disease and some | | | | | | cancers among other | | | | | | conditions. The presence | | | | | | of rheumatoid factor at | | | | | | a level >50 IU/mL may | | | | | | falsely elevate the | | | | | | determined D-dimer | | | | | | levels. | | | | + + + + + + + + | Specimen | + + | Blood | + + + + + + + | Performing | Address | City/State/Zipcode | Phone Number | | Organization | | | | + + + + + | [facility] | [address] | [place] | [phone] | | [facility] | | [address] | | | - LABORATORY | | | | + + + + + Troponin I (07/06/2015 3:45 PM PDT) + + + + + + | Component | Value | Ref Range | Performed | Pathologist | | | | | At | Signature | + + + + + + | Troponin I | <0.01Comment: Reference | <0.06 ng/mL | [facility] | | | | Ranges:0.00-0.06 = | | [facility] | | | | NORMAL>0.06 = | | MEDICAL | | | | SUSPICIOUS FOR | | CENTER - | | | | MYOCARDIAL DAMAGE NOTE: | | LABORATORY | | | | Values greater than 0.50 | | | | | | ng/mL have been shown | | | | | | to be strongly | | | | | | associated with acute | | | | | | myocardial infarction. | | | | | | The [employer] [employer] | | | | | | Cardiology (ACC) | | | | | | recommends a decision | | | | | | limit of 0.06 ng/mL for | | | | | | this assay. Results | | | | | | greater than 0.06 can | | | | | | reflect a pre-infarct | | | | | | acute coronary syndrome, | | | | | | but can also reflect | | | | | | myocardial necrosis or | | | | | | injury that is not due | | | | | | to coronary artery | | | | | | disease. Some of these | | | | | | causes are sepsis, | | | | | | hypocolemia, atrial | | | | | | fibrillation, heart | | | | | | failure, pulmonary | | | | | | embolism, myocarditis, | | | | | | myocardial contusion, | | | | | | and renal failure. The | | | | | | diagnosis of myocardial | | | | | | infarction should be | | | | | | based on a combination | | | | | | of the patient's | | | | | | clinical presentation | | | | | | and the clinical | | | | | | laboratory test results | | | | | | (especially serial | | | | | | troponin levels). | | | | + + + + + + + + | Specimen | + + | Blood | + + + + + + + | Performing | Address | City/State/[facility] | Phone Number | | Organization | | | | + + + + + | [facility] | [address] | [place] | [phone] | | [facility] | | [address] | | | - LABORATORY | | | | + + + + + Basic Metabolic Panel (07/06/2015 3:45 PM PDT) + + + + + + | Component | Value | Ref Range | Performed | Pathologist | | | | | At | Signature | + + + + + + | Na | 139 | 136 - 149 | [facility] | | | | | mmol/L | [facility] | | | | | | MEDICAL | | | | | | CENTER - | | | | | | LABORATORY | | + + + + + + | K | 4.0 | 3.5 - 5.1 | [facility] | | | | | mmol/L | [facility] | | | | | | MEDICAL | | | | | | CENTER - | | | | | | LABORATORY | | + + + + + + | Cl | 103 | 98 - 109 mmol/L | [facility] | | | | | | [facility] | | | | | | MEDICAL | | | | | | CENTER - | | | | | | LABORATORY | | + + + + + + | CO2 | 25 | 24 - 31 mmol/L | [facility] | | | | | | [facility] | | | | | | MEDICAL | | | | | | CENTER - | | | | | | LABORATORY | | + + + + + + | Anion Gap | 11 | 3 - 16 mmol/L | [facility] | | | | | | [facility] | | | | | | MEDICAL | | | | | | CENTER - | | | | | | LABORATORY | | + + + + + + | Glucose | 276 (H) | 70 - 109 mg/dL | [facility] | | | | | | [facility] | | | | | | MEDICAL | | | | | | CENTER - | | | | | | LABORATORY | | + + + + + + | BUN | 9 | 7 - 18 mg/dL | [facility] | | | | | | [facility] | | | | | | MEDICAL | | | | | | CENTER - | | | | | | LABORATORY | | + + + + + + | Creatinine | 0.77 | 0.60 - 1.30 | [facility] | | | | | mg/dL | [facility] | | | | | | MEDICAL | | | | | | CENTER - | | | | | | LABORATORY | | + + + + + + | eGFR if not | >60Comment: GLOMERULAR | >=60 | [facility] | | | | FILTRATION | mL/min/1.73m2 | [facility] | | | TANZANIAN | RATE,ESTIMATED | | MEDICAL | | | | mL/min/1.07s5Khqz than | | CENTER - | | [...] + + + + | BUN/Creatin | 11.7 | | [facility] | | | ine [...] [address] | [place] | [phone] | | [facility] | | [address] | | | - LABORATORY | | | | + + + + + CBC no Differential (07/06/2015 3:45 PM PDT) + +-------+ + + + | Component | Value | Ref Range | Performed | Pathologist | | | | | At | Signature | + +-------+ + + + | WBC | 8.1 | 4.0 - 11.0 K/uL | [facility] | | | | | | [facility] | | | | | | MEDICAL | | | | | | CENTER - | | | | | | LABORATORY | | + +-------+ + + + | RBC | 4.88 | 3.70 - 5.20 | [facility] | | | | | M/uL | [facility] | | | | | | MEDICAL | | | | | | CENTER - | | | | | | LABORATORY | | + +-------+ + + + | Hemoglobin | 13.9 | 11.5 - 16.0 | [facility] | | | | | g/dL | [facility] | | | | | | MEDICAL | | | | | | CENTER - | | | | | | LABORATORY | | + +-------+ + + + | Hematocrit | 43.1 | 34.0 - 47.0 % | [facility] | | | | | | [facility] | | | | | | MEDICAL | | | | | | CENTER - | | | | | | LABORATORY | | + +-------+ + + + | MCV | 88.3 | 83.0 - 101.0 fL | [facility] | | | | | | [facility] | | | | | | MEDICAL | | | | | | CENTER - | | | | | | LABORATORY | | + +-------+ + + + | MCH | 28.5 | 28.0 - 35.0 pg | [facility] | | | | | | [facility] | | | | | | MEDICAL | | | | | | CENTER - | | | | | | LABORATORY | | + +-------+ + + + | MCHC | 32.3 | 32.0 - 36.0 | [facility] | | | | | g/dL | [facility] | | | | | | MEDICAL | | | | | | CENTER - | | | | | | LABORATORY | | + +-------+ + + + | RDW-CV | 14.7 | <15.0 % | [facility] | | | | | | [facility] | | | | | | MEDICAL | | | | | | CENTER - | | | | | | LABORATORY | | + +-------+ + + + | Platelet | 201 | 140 - 440 K/uL | [facility] | | | Count | | | [facility] | | | | | | MEDICAL | | | | | | CENTER - | | | | | | LABORATORY | | + +-------+ + + + | MPV | 8.3 | fL | [facility] | | | [...] [address] | [place] | [phone] | | [facility] | | [address] | | | - LABORATORY | | | | + + + + + ECG 12 lead (07/06/2015 3:27 PM PDT) + + + + + + | Component | Value | Ref Range | Performed | Pathologist | | | | | At | Signature | + + + + + + | VENTRICULAR | 110 | BPM | [facility] | | | RATE EKG | | | | | + + + + + + | ATRIAL RATE | 110 | BPM | [facility] | | + + + + + + | P-R | 160 | ms | [facility] | | | INTERVAL | | | | | + + + + + + | QRS | 82 | ms | [facility] | | | DURATION | | | | | + + + + + + | Q-T | 340 | ms | [facility] | | | INTERVAL | | | | | + + + + + + | Q-T | 460 | ms | [facility] | | | INTERVAL | | | | | | (CORRECTED) | | | | | + + + + + + | P WAVE AXIS | 65 | degrees | [facility] | | + + + + + + | QRS AXIS | -25 | degrees | [facility] | | + + + + + + | T AXIS | 41 | degrees | [facility] | | + + + + + + | INTERPRETAT | Sinus | | [facility] | | | ION TEXT | tachycardiaBorderline | | | | | | ECGNo previous ECGs | | | | | | availableConfirmed by | | | | | | MD NAZARIO JON ([id number]) | | | | | | on 07/07/2015 7:23:24 AM | | | | | | | [...] + | Diagnosis | + + | Chest pain, unspecified chest pain type - Primary | + + documented in this encounter Administered Medications + +--------+ +--------+------+------+ | Medication Order | MAR | Action | Dose | Rate | Site | | | Action | Date | | | | + +--------+ +--------+------+------+ | nitroglycerin (NITROSTAT) SL | Given | 07/06/20 | 0.4 mg | | | | tablet 0.4 mg 0.4 mg, | | 15 4:10 | | | | | Sublingual, ONCE, 07/06/15 at | | PM PDT | | | | | 1605, For 1 dose, Maximum of 3 | | | | | | | doses in 15 minutes., | | | | | | + +--------+ +--------+------+------+ +---+---+ | | | +---+---+ documented in this encounter"
--- OUTSIDE RECORDS SUMMARY | ~2019-09-18 | XMS | Encounter Summary ---
Demographics + + + | Address | [address] | | | [place] [address] | + + + | Home Phone [...] [place] | | | | | [address] | | + + + + + Care Team Providers + +------+ + | Care Lease Examiner Name | Role | Phone | [...] + + | 09/10/ | Documentati | [facility] | Katharine Moncada, | Other (urgent | | 2019 | on | CARDIOLOGY [place] | Technologist | report) | | | | [address] | | | | | | [place] | | | | | | [address] | | | | | | [phone] | | | +--------+ + + + [...] [place] | | | | | | [address] | | | | | | | | +--------+---------+ + + + documented as of this encounter Visit Diagnoses Not on filedocumented in this encounter"
--- OUTSIDE RECORDS SUMMARY | ~2019-09-18 | XMS | Encounter Summary ---
Demographics + + + | Address | [address] | | | [place] [address] | + + + | Home Phone [...] [place] | | | | | [address] | | + + + + + Care Team Providers + +------+ + | Care Testing Analyst Name | Role | Phone | + +------+ + | Natalee Andersen NP | PCP | | + +------+ + Reason for Visit +--------+ + | Reason | Comments | +--------+ + | Other | 6m x-ray | +--------+ + Encounter Details +--------+ + + + + | Date | Type | Department | Care Team | Description | +--------+ + + + + | 01/02/ | Telephone | [facility] | Frandy Teresa, | Other (6m x-ray ) | | 2014 | | [address]UR[address] | DO [address] | | | | | [address] | [address] [place], [place] | | | | | [place], [place] | [phone] | | | | | [address] | | | | | | [phone] | | | +--------+ + + + [...] [place] | | | | | | [place] | | | | | | [address] | | | | | | | | +--------+---------+ + + + documented as of this encounter Visit Diagnoses Not on filedocumented in this encounter"
--- OUTSIDE RECORDS SUMMARY | ~2019-09-18 | XMS | Encounter Summary ---
Demographics + + + | Address | [address] | | | [place] [address] | + + + | Home Phone [...] [place] | | | | | [address] | | + + + + + Care Team Providers + +------+ + | Care Pantry Worker Name | Role | Phone | [...] + + | 08/13/ | Documentati | [facility] | Katharine Moncada, | Other (urgent | | 2019 | on | CARDIOLOGY [place] | Technologist | report) | | | | [address] | | | | | | [place] | | | | | | [address] | | | | | | [phone] | | | +--------+ + + + [...] Progress Notes Katharine Moncada, Technologist - 08/13/2019 9:06 AM PDTReceived urgent report 08/13/19 Pt self triggered 08/10/19 at 15:36 123 BPM 30 day monitor was placed 08/09/19 [...] [place] | | | | | | [address] | | | | | | | | +--------+---------+ + + + documented as of this encounter Visit Diagnoses Not on filedocumented in this encounter"
--- OUTSIDE RECORDS SUMMARY | ~2019-09-18 | XMS | Encounter Summary ---
Demographics + + + | Address | [address] | | | [place] [address] | + + + | Home Phone [...] [place] | | | | | [address] | | + + + + + Care Team Providers + +------+ + | Care Laboratory Cureman Name | Role | Phone | + +------+ + | Adriano Patrick MD | PCP | | + +------+ + Encounter Details +--------+ + + + + | Date | Type | Department | Care Team | Description | +--------+ + + + + | 06/07/ | Orders Only | [facility] | Basim Bolanos | | | 2011 | | [address] | MD [address] | | | | | [place], [place] | [place] | | | | | [address] | [place] [address] | | | | | [phone] | [phone] | | | | | | | [...] [place] | | | | | | [address] | | | | | | | | +--------+---------+ + + + documented as of this encounter Procedures + +--------+ + + + | Procedure Name | Priori | Date/Time | Associated Diagnosis | Comments | | | ty | | | | + +--------+ + + + | CULTURE, URINE | Routin | 06/07/2012 | | Results for this | | | e | 9:00 AM | | procedure are in the | | | | PDT | | results section. | + +--------+ + + + documented in this encounter Results Culture, Urine (06/07/2012 9:00 AM PDT) + + | Specimen | + + | | + + + + + | Narrative | Performed At | + + + | Specimen Description URINE, COLLECTION NOT | EXTERNAL LAB | | GIVEN Testing | | | performed at [facility];[address] [place] [address] CULTURE | | | 50,000 TO 100,000 CFU/ML | | | MIXED GRAM POSITIVE HAIDER NO SUSCEPTIBILITY TO FOLLOW | | | MULTIPLE ORGANISM TYPES PRESENT, | | | SUGGESTIVE OF CONTAMINATION OR COLONIZATION. SUGGEST RECOLLECTION FOR | | | CULTURE. Testing | | | performed at [facility];[address] [place] [address];[place] [address] REPORT | | | STATUS 06/08/2012 FINAL | | + + + + +---------+ + + | Performing | Address | City/State/Zipcode | Phone Number | | Organization | | | | + +---------+ + + | EXTERNAL LAB | | | | + +---------+ + + documented in this encounter Visit Diagnoses Not on filedocumented in this encounter"
--- OUTSIDE RECORDS SUMMARY | ~2019-09-18 | XMS | Encounter Summary ---
Demographics + + + | Address | [address] | | | [place] [address] | + + + | Home Phone | | + + + | Preferred Language | Unknown | + + + | Marital Status | | + + + | Holiness Affiliation | 1013 | + + + | Race | Unknown | + + + | Ethnic Group | Unknown | + + + Author + + + | Author | [facility] | | | and [place] | + + + | Organization | [facility] | | | and [place] | + + + | Address | Unknown | + + + | Phone | Unavailable | + + + Support + + + + + | Name | Relationship | Address | Phone | + + + + + | Araceli Sibley | ECON | [place] | | | | | [address] | | + + + + + Care Team Providers + +------+ + | Care Stand Grinder Name | Role | Phone | [...] | | | | | Procedures | CERTIFIED MASSAGE THERAPIST [address] | [address] | | | | | [place] OFFICE | | [address] | | | | | CONSULTATION | [address] | [place] | | | | | NEW/ESTAB | [facility], | [address] Phone: | | | | | PATIENT [address] | [place] [address] | [phone] | | | | | MIN | Phone: | Fax: | | | | | | [phone] | [phone] | | | | | | Fax: | | | | | | | [phone] | | +--------+--------+ + + + + Encounter Details +--------+---------+ + + + | Date | Type | Department | Care Team | Description | +--------+---------+ + + + | 05/02/ | Office | [facility] | Frandy Teresa, | Spondylolisthesis of | | 2013 | Visit | [address]UR[address] | DO [address] | lumbar region | | | | [address] | [facility] [address] [place], [place] | (Primary Dx); Lumbar | | | | [place], [place] | [phone] | stenosis; Lumbar | | | | [address] | | radicular pain; | | | | [phone] | | Lumbago | +--------+---------+ + + [...] m the original. Frandy Teresa DO [address] [facility] [address] [place] [address] FAX: NEUROSURGERY HISTORY AND PHYSICAL EXAMINATION CHIEF [...] Take 15 mg by mouth nightl y. 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 CRANIAL NERVES: II: Acuity is intact. [...] Intrinsics 5 5 Ulnar Intrinsics 5 5 Publications Sales Representative Strength 5 5 Hip Flexion 5 4* [...] DO, 05/02/2014 11:42 documented in this encounter Plan of Treatment +--------+---------+ + + + | Date | Type | Specialty | Care Team | Description | +--------+---------+ + + + | 10/11/ | Office | Cardiology | Desriee Peterson DO | | | 2019 | Visit | | [address] | | | | | | [place] | | | | | | [address] | | | | | | | [...]
--- OUTSIDE RECORDS SUMMARY | ~2019-09-18 | XMS | Encounter Summary ---
Demographics + + + | Address | [address] | | | [place] [address] | + + + | Home Phone [...] [place] | | | | | [address] | | + + + + + Care Team Providers + +------+ + | Care Distillation Operator Name | Role | Phone | [...] + + | 08/15/ | Documentati | [facility] | Katharine Moncada, | Other (urgent | | 2019 | on | CARDIOLOGY [place] | Technologist | report) | | | | [address] | | | | | | [place] | | | | | | [address] | | | | | | [phone] | | | +--------+ + + + [...] [place] | | | | | | [address] | | | | | | | | +--------+---------+ + + + documented as of this encounter Visit Diagnoses Not on filedocumented in this encounter"
--- OUTSIDE RECORDS SUMMARY | ~2019-09-18 | XMS | Encounter Summary ---
Demographics + + + | Address | [address] | | | [place] [address] | + + + | Home Phone [...] [place] | | | | | [address] | | + + + + + Care Team Providers + +------+ + | Care Press Reader Name | Role | Phone | + [...] [address] | | | | | [place], [place] | Shaheen Simons | | | | | [address] | [place] [address] | | | | | [phone] | [phone] | | | | | | | [...] [place] | | | | | | [address] | | | | | | | [...] GIVEN Testing | | | performed at [facility];[address] [place] [address] CULTURE | | | 50,000 TO 100,000 CFU/ML | | | MIXED GRAM POSITIVE HAIDER NO SUSCEPTIBILITY TO FOLLOW | | | MULTIPLE ORGANISM TYPES PRESENT, | | | SUGGESTIVE OF CONTAMINATION OR COLONIZATION. SUGGEST RECOLLECTION FOR | | | CULTURE. Testing | | | performed at [facility];[address] [place] [address];[place] [address] REPORT | | | STATUS 06/08/2012 FINAL [...]
--- OUTSIDE RECORDS SUMMARY | ~2019-09-18 | XMS | Encounter Summary ---
Demographics + + + | Address | [address] | | | [place] [address] | + + + | Home Phone [...] [place] | | | | | [address] | | + + + + + Care Team Providers + +------+ + | Care Sustainable Agriculture Specialist Name | Role | Phone | [...] + | 11/25/ | Telephone | [facility] | Frandy Teresa, | Medication Refill | | 2015 | | NEUROSURGERY [address] | DO [address] | Assistance | | | | [address] | [address] [place], [place] | | | | | [place], [place] | [address] | | | | | [address] | | | | | | [phone] | | | +--------+ + + + [...] | | | | | [place] | | | | | | [address] | | | | | | | | +--------+---------+ + + + documented as of this encounter Visit Diagnoses Not on filedocumented in this encounter"
--- OUTSIDE RECORDS SUMMARY | ~2019-09-18 | XMS | Encounter Summary ---
Demographics + + + | Address | [address] | | | [place] [address] | + + + | Home Phone [...] [place] | | | | | [address] | | + + + + + Care Team Providers + +------+ + | Care Plant General Manager Name | Role | Phone | [...] + + | 03/03/ | Telephone | [facility] | Baudilio Newman | Other (Results) | | 2014 | | NEUROLOGY LAURIE | MD Pollo Need updated | | | | | [address], | address | | | | | [address] [place] | | | | | | [place] [address] | | | | | | [phone] | | | +--------+ + + + [...] [place] | | | | | | [address] | | | | | | | | +--------+---------+ + + + documented as of this encounter Visit Diagnoses Not on filedocumented in this encounter"
--- OUTSIDE RECORDS SUMMARY | ~2019-09-18 | XMS | Encounter Summary ---
Demographics + + + | Address | [address] | | | [place] [address] | + + + | Home Phone [...] [place] | | | | | [address] | | + + + + + Care Team Providers + +------+ + | Care Automotive Teacher Name | Role | Phone | + +------+ + | Basim Bolanos MD | PCP | | + +------+ + Encounter Details +--------+ + + + + | Date | Type | Department | Care Team | Description | +--------+ + + + + | 03/01/ | Abstract | [facility] [place] | [facility], | | | 2012 | | GASTROENTEROLOGY | FORTUNATO Thomas [address] | | | | | [address] [place] | [place], [address] | | | | | [address] [place], [place] | [place], [place] | | | | | [address] | [address] | | | | | [phone] | | | +--------+ + + + [...]
--- OUTSIDE RECORDS SUMMARY | ~2019-09-18 | XMS | Encounter Summary ---
Demographics + + + | Address | [address] | | | [place] [address] | + + + | Home Phone [...] [place] | | | | | [address] | | + + + + + Care Team Providers + +------+ + | Care Molecular Geneticist Name | Role | Phone | + +------+ + | Adriano Patrick MD | PCP | | + +------+ + Encounter Details +--------+ + + + + | Date | Type | Department | Care Team | Description | +--------+ + + + + | 05/14/ | Orders Only | [facility] | Desiree Peterson DO | | | 2018 | | CONVERSION [address] | [address] | | | | | [address] | [place], [place] | | | | | [place], [place] | [address] | | | | | [address] | | | | | | [phone] | | | +--------+ + + + [...] | | | | [place] | | | | | | [address] | | | | | | | | +--------+---------+ + + + documented as of this encounter Procedures + +--------+ + + + | Procedure Name | Priori | Date/Time | Associated Diagnosis | Comments | | | ty | | | | + +--------+ + + + | ECHO INTERPRETATION | Routin | 05/14/2019 | | Results for this | | OF OUTSIDE FILMS | e | 4:22 PM | | procedure are in the | | | | PDT | | results section. | + +--------+ + + + documented in this encounter Results ECHO Interpretation of Outside Films (05/14/2019 4:22 PM PDT) + + | Specimen | + + | | + + + + + | Impressions | Performed At | + + + | 1. Overall left ventricular systolic function is normal with, an EF | | | between 65 - 70 %. 2. No regional wall motion abnormalities. 3. The | | | right ventricle is normal in size and function. 4. The right | | | ventricular systolic pressure (pulmonary artery systolic pressure), as | | | measured by Doppler, is 27.97mmHg. | | + + + + + + | Narrative | Performed At | + + + | Patient Name: Cindy Arndt Date of : 1955 | | | Performing Physician: Desiree Peterson MD | | | | | | INDICATIONS SOB CONCLUSIONS 1. Overall | | | left ventricular systolic function is normal with, an EF between 65 - | | | 70 %. 2. No regional wall motion abnormalities. 3. The right | | | ventricle is normal in size and function. 4. The right ventricular | | | systolic pressure (pulmonary artery systolic pressure), as measured by | | | Doppler, is 27.97mmHg. FINDINGS -------- ECG rhythm: Sinus | | | rhythm. Study: A 2-dimensional transthoracic echocardiogram with | | | m-mode, spectral and color flow Doppler was perfomed. Study: This was | | | a technically adequate study. Left Ventricle: Overall left | | | ventricular systolic function is normal with, an EF between 65 - 70 %. | | | Left Ventricle: The left ventricle cavity size is normal. Left | | | Ventricle: Left ventricular wall thickness is normal. Left Ventricle: | | | No regional wall motion abnormalities. Left Ventricle: The diastolic | | | filling pattern is normal for the age of the patient. Right | | | Ventricle: The right ventricle is normal in size and function. Right | | | Ventricle: Moderator band is visualized in the right ventricular apex. | | | Left Atrium: The left atrium is normal in size. Right Atrium: The | | | right atrium is normal in size. Aortic Valve: Aortic valve is mildly | | | thickened. Aortic Valve: The aortic valve appears to be trileaflet. | | | Aortic Valve: There is no evidence of aortic regurgitation. Aortic | | | Valve: There is mild aortic valve sclerosis without stenosis. Mitral | | | Valve: The mitral valve is normal. Mitral Valve: There is trace | | | mitral regurgitation. Tricuspid Valve: The tricuspid valve appears | | | structurally normal. Tricuspid Valve: Trace tricuspid regurgitation | | | present. Tricuspid Valve: The right ventricular systolic pressure | | | (pulmonary artery systolic pressure), as measured by Doppler, is | | | 27.97mmHg. Tricuspid Valve: There is no evidence of pulmonary | | | hypertension. Pulmonic Valve: The pulmonic valve was not well | | | visualized. Pericardium: There is no pericardial effusion. | | | IVC/Hepatic Veins: The IVC was not well visualized. Aorta: The aortic | | | root, ascending aorta and aortic arch are normal. Mass: No mass | | | visualized Thrombus: No clot visualized Thrombus: No vegetation | | | visualized. Septum: No ASD observed. Septum: No VSD observed. | | | MEASUREMENTS Ao asc: 2.80 cm Ao Diam: 2.66 cm | | | Ao sinus: 2.[address] junct: 2.49 cm LA Major: 4.48 cm | | | EDV(Teich): 100.59 ml IVSd: 0.90 cm LVIDd: 4.66 cm LVPWd: | | | 0.98 cm LVOT Diam: 1.96 cm %FS: 31.38 % EF(Teich): | | | 59.25 % ESV(Teich): 40.98 ml LVIDs: 3.20 cm SV(Teich): | | | 59.60 ml RA Major: 3.78 cm RV Major: 6.95 cm RV Minor: | | | 3.08 cm RV Minor: 2.80 cm LVEF MOD A2C: 62.37 % SV MOD A2C: | | | 36.89 ml LVEF MOD A4C: 54.93 % SV MOD A4C: 49.13 ml EF | | | Biplane: 60.17 % LVEDV MOD BP: 75.12 ml LVESV MOD BP: 29.91 | | | ml LVEDV MOD A2C: 59.13 ml LVLd A2C: 7.83 cm LVEDV MOD A4C: | | | 89.43 ml LVLd A4C: 8.39 cm LVESV MOD A2C: 22.24 ml LVLs | | | A2C: 6.75 cm LVESV MOD A4C: 40.30 ml LVLs A4C: 6.70 cm | | | LAESV(A-L): 42.15 ml LAESV Index (A-L): 19.60 ml/m2 LAAs A2C: | | | 15.44 cm2 LAESV A-L A2C: 43.84 ml LAESV MOD A2C: 42.12 ml | | | LALs A2C: 4.61 cm LAAs A4C: 14.18 cm2 LAESV A-L A4C: 38.73 | | | ml LAESV MOD A4C: 37.04 ml LALs A4C: 4.41 cm RAAs: 12.15 | | | cm2 RAESV A-L: 28.54 ml RAESV MOD: 28.66 ml RALs: 4.39 cm | | | TAPSE: 2.42 cm AV Env.Ti: 293.94 ms AV maxP.18 mmHg | | | AV meanP.09 mmHg AV Vmax: 1.88 m/s AV Vmean: 1.25 m/s | | | AV VTI: 36.84 cm YUSUF Vmax: 2.06 cm2 YUSUF (VTI): 2.24 cm2 | | | AVAI Vmax: 0.00 cm2/m2 AVAI (VTI): 0.00 cm2/m2 LVOT Env.Ti: | | | 299.59 ms LVOT maxP.52 mmHg LVOT meanP.65 mmHg LVSI | | | Dopp: 38.55 ml/m2 LVSV Dopp: 82.89 ml LVOT Vmax: 1.27 m/s | | | LVOT Vmean: 0.91 m/s LVOT VTI: 27.27 cm MV A Teodoro: 0.83 m/s | | | MV Dec [place]: 2.85 m/s2 MV DecT: 282.89 ms MV E Teodoro: 0.80 | | | m/s MV E/A Ratio: 0.96 E/E' Sept: 12.59 E' Lat: 0.08 m/s | | | E' Sept: 0.06 m/s RAP: 10 mmHg RV S': 0.11 m/s RVSP: | | | 27.96 mmHg TR maxP.96 mmHg TR Vmax: 2.11 m/s | | | Manager Cosmetics: Authenticated by: Desiree Peterson MD Report Date/Time: | | | -- [id number]:31:1 | | + + + + + | Procedure Note | + + | Juan, Rad Conversion - 06/14/2019 1:12 PM PDT Patient Name: Claudia Arndt | | : 1955 Performing Physician: Desiree Peterson | | MD INDICATIONS S | | OB CONCLUSIONS 1. Overall left ventricular systolic function is normal with, | | an EF between 65 - 70 %.2. No regional wall motion abnormalities.3. The right ventricle | | is normal in size and function.4. The right ventricular systolic pressure (pulmonary | | artery systolic pressure), as measured by Doppler, is 27.97mmHg. FINDINGS--------ECG | | rhythm: Sinus rhythm.Study: A 2-dimensional transthoracic echocardiogram with m-mode, | | spectral and color flow Doppler was perfomed.Study: This was a technically adequate | | study.Left Ventricle: Overall left ventricular systolic function is normal with, an EF | | between 65 - 70 %.Left Ventricle: The left ventricle cavity size is normal.Left | | Ventricle: Left ventricular wall thickness is normal.Left Ventricle: No regional wall | | motion abnormalities.Left Ventricle: The diastolic filling pattern is normal for the age | | of the patient.Right Ventricle: The right ventricle is normal in size and | | function.Right Ventricle: Moderator band is visualized in the right ventricular | | apex.Left Atrium: The left atrium is normal in size.Right Atrium: The right atrium is | | normal in size.Aortic Valve: Aortic valve is mildly thickened.Aortic Valve: The aortic | | valve appears to be trileaflet.Aortic Valve: There is no evidence of aortic | | regurgitation.Aortic Valve: There is mild aortic valve sclerosis without stenosis.Mitral | | Valve: The mitral valve is normal.Mitral Valve: There is trace mitral | | regurgitation.Tricuspid Valve: The tricuspid valve appears structurally normal.Tricuspid | | Valve: Trace tricuspid regurgitation present.Tricuspid Valve: The right ventricular | | systolic pressure (pulmonary artery systolic pressure), as measured by Doppler, is | | 27.97mmHg.Tricuspid Valve: There is no evidence of pulmonary hypertension.Pulmonic | | Valve: The pulmonic valve was not well visualized.Pericardium: There is no pericardial | | effusion.IVC/Hepatic Veins: The IVC was not well visualized.Aorta: The aortic root, | | ascending aorta and aortic arch are normal.Mass: No mass visualizedThrombus: No clot | | visualizedThrombus: No vegetation visualized.Septum: No ASD observed.Septum: No VSD | | observed. MEASUREMENTS Ao asc: 2.80 cmAo Diam: 2.66 cmAo sinus: 2.64 | | cmAo st junct: 2.49 cmLA Major: 4.48 cmEDV(Teich): 100.59 mlIVSd: 0.90 cmLVIDd: | | 4.66 cmLVPWd: 0.98 cmLVOT Diam: 1.96 cm%FS: 31.38 %EF(Teich): 59.25 | | %ESV(Teich): 40.98 mlLVIDs: 3.20 cmSV(Teich): 59.60 mlRA Major: 3.78 cmRV Major: | | 6.95 cmRV Minor: 3.08 cmRV Minor: 2.80 cmLVEF MOD A2C: 62.37 %SV MOD A2C: | | 36.89 mlLVEF MOD A4C: 54.93 %SV MOD A4C: 49.13 mlEF Biplane: 60.17 %LVEDV MOD BP: | | 75.12 mlLVESV MOD BP: 29.91 mlLVEDV MOD A2C: 59.13 mlLVLd A2C: 7.83 cmLVEDV MOD | | A4C: 89.43 mlLVLd A4C: 8.39 cmLVESV MOD A2C: 22.24 mlLVLs A2C: 6.75 cmLVESV MOD | | A4C: 40.30 mlLVLs A4C: 6.70 cmLAESV(A-L): 42.15 mlLAESV Index (A-L): 19.60 | | ml/m2LAAs A2C: 15.44 [id number] A-L A2C: 43.84 mlLAESV MOD A2C: 42.12 mlLALs A2C: | | 4.61 cmLAAs A4C: 14.18 [id number] A-L A4C: 38.73 mlLAESV MOD A4C: 37.04 mlLALs A4C: | | 4.41 cmRAAs: 12.15 [id number] A-L: 28.54 mlRAESV MOD: 28.66 mlRALs: 4.39 | | cmTAPSE: 2.42 cmAV Env.Ti: 293.94 msAV maxP.18 mmHgAV meanP.09 mmHgAV | | Vmax: 1.88 m/Eddie Vmean: 1.25 m/Eddie VTI: 36.84 cmAVA Vmax: 2.06 cm2AVA (VTI): | | 2.24 [id number] Vmax: 0.00 cm2/m2AVAI (VTI): 0.00 cm2/m2LVOT Env.Ti: 299.59 msLVOT | | maxP.52 mmHgLVOT meanP.65 mmHgLVSI Dopp: 38.55 ml/m2LVSV Dopp: 82.89 | | mlLVOT Vmax: 1.27 m/sLVOT Vmean: 0.91 m/sLVOT VTI: 27.27 cmMV A Teodoro: 0.83 m/sMV | | Dec [place]: 2.85 m/s2MV DecT: 282.89 msMV E Teodoro: 0.80 m/sMV E/A Ratio: 0.96E/E' | | Sept: 12.59E' Lat: 0.08 m/sE' Sept: 0.06 m/sRAP: 10 mmHgRV S': 0.11 m/sRVSP: | | 27.96 mmHgTR maxP.96 mmHgTR Vmax: 2.11 m/s Manager Cosmetics:Authenticated by: | | Desiree Peterson MDReport Date/Time: -- [id number] IMPRESSION: 1. Overall left | | ventricular systolic function is normal with, an EF between 65 - 70 %.2. No regional | | wall motion abnormalities.3. The right ventricle is normal in size and function.4. The | | right ventricular systolic pressure (pulmonary artery systolic pressure), as measured by | | Doppler, is 27.97mmHg. | |MEASUREMENTS | | | |Ao asc: 2.80 cm | |Ao Diam: 2.66 cm | |Ao sinus: 2.64 cm | |Ao st junct: 2.49 cm | |LA Major: 4.48 cm | |EDV(Teich): 100.59 ml | |IVSd: 0.90 cm | |LVIDd: 4.66 cm | |LVPWd: 0.98 cm | |LVOT Diam: 1.96 cm | |%FS: 31.38 % | |EF(Teich): 59.25 % | |ESV(Teich): 40.98 ml | |LVIDs: 3.20 cm | |SV(Teich): 59.60 ml | |RA Major: 3.78 cm | |RV Major: 6.95 cm | |RV Minor: 3.08 cm | |RV Minor: 2.80 cm | |LVEF MOD A2C: 62.37 % | |SV MOD A2C: 36.89 ml | |LVEF MOD A4C: 54.93 % | |SV MOD A4C: 49.13 ml | |EF Biplane: 60.17 % | |LVEDV MOD BP: 75.12 ml | |LVESV MOD BP: 29.91 ml | |LVEDV MOD A2C: 59.13 ml | |LVLd A2C: 7.83 cm | |LVEDV MOD A4C: 89.43 ml | |LVLd A4C: 8.39 cm | |LVESV MOD A2C: 22.24 ml | |LVLs A2C: 6.75 cm | |LVESV MOD A4C: 40.30 ml | |LVLs A4C: 6.70 cm | |LAESV(A-L): 42.15 ml | |LAESV Index (A-L): 19.60 ml/m2 | |LAAs A2C: 15.44 cm2 | |LAESV A-L A2C: 43.84 ml | |LAESV MOD A2C: 42.12 ml | |LALs A2C: 4.61 cm | |LAAs A4C: 14.18 cm2 | |LAESV A-L A4C: 38.73 ml | |LAESV MOD A4C: 37.04 ml | |LALs A4C: 4.41 cm | |RAAs: 12.15 cm2 | |RAESV A-L: 28.54 ml | |RAESV MOD: 28.66 ml | |RALs: 4.39 cm | |TAPSE: 2.42 cm | |AV Env.Ti: 293.94 ms | |AV maxP.18 mmHg | |AV meanP.09 mmHg | |AV Vmax: 1.88 m/s | |AV Vmean: 1.25 m/s | |AV VTI: 36.84 cm | |YUSUF Vmax: 2.06 cm2 | |YUSUF (VTI): 2.24 cm2 | |AVAI Vmax: 0.00 cm2/m2 | |AVAI (VTI): 0.00 cm2/m2 | |LVOT Env.Ti: 299.59 ms | |LVOT maxP.52 mmHg | |LVOT meanP.65 mmHg | |LVSI Dopp: 38.55 ml/m2 | |LVSV Dopp: 82.89 ml | |LVOT Vmax: 1.27 m/s | |LVOT Vmean: 0.91 m/s | |LVOT VTI: 27.27 cm | |MV A [place]: 0.83 m/s | |MV Dec [place]: 2.85 m/s2 | |MV DecT: 282.89 ms | |MV E [place]: 0.80 m/s | |MV E/A Ratio: 0.96 | |E/E' Sept: 12.59 | |E' Lat: 0.08 m/s | |E' Sept: 0.06 m/s | |RAP: 10 mmHg | |RV S': 0.11 m/s | |RVSP: 27.96 mmHg | |TR maxP.96 mmHg | |TR Vmax: 2.11 m/s | | | |[employer]: | |Authenticated by: Desiree Peterson MD | |Report Date/Time: -- [id number] | | | |IMPRESSION: | |1. Overall left ventricular systolic function is normal with, an EF between 65 - 70 %. | |2. No regional wall motion abnormalities. | |3. The right ventricle is normal in size and function. | |4. The right ventricular systolic pressure (pulmonary artery systolic pressure), as measure d by Doppler, is 27.97mmHg. | + + documented in this encounter Visit Diagnoses Not on filedocumented in this encounter"
--- OUTSIDE RECORDS SUMMARY | ~2019-09-18 | XMS | Encounter Summary ---
Demographics + + + | Address | [address] | | | [place] [address] | + + + | Home Phone | | + + + | Preferred Language | Unknown | + + + | Marital Status | | + + + | Hindu Affiliation | 1013 | + + + [...] [place] | | | | | [address] | | + + + + + Care Team Providers + +------+ + | Care Portable Track Crew Chief Name | Role | Phone | [...] + + | 02/01/ | Telephone | [facility] | Frandy Teresa, | Imaging Only | | 2019 | | NEUROSURGERY [address] | DO [address] | | | | | [address] | [address] [place], [place] | | | | | [place], [place] | [address] | | | | | [address] | | | | | | [phone] | | | +--------+ + + + [...] [place] | | | | | | [address] | | | | | | | | +--------+---------+ + + + documented as of this encounter Visit Diagnoses Not on filedocumented in this encounter"
--- OUTSIDE RECORDS SUMMARY | ~2019-09-18 | XMS | Encounter Summary ---
Demographics + + + | Address | [address] | | | [place] [address] | + + + | Home Phone [...] [place], [place] | | | | | [address] | | + + + + + Care Team Providers + +------+ + | Care Lotus Notes Administrator Name | Role | Phone | + +------+ + PCP | Unavailable | + +------+ + Encounter Details +--------+ + + + + | Date | Type | Department | Care Team | Description | +--------+ + + + + | 01/06/ | Hospital | [facility] | | | | 1992 | Encounter | MED CTR LABORATORY | | | | | | [address] | | | | | | [place] | | | | | | [address] | | | | | | [phone] | | | +--------+ + + + [...] | | | | | [place] | | | | | | [address] | | | | | | | | +--------+---------+ + + + documented as of this encounter Visit Diagnoses Not on filedocumented in this encounter"
--- OUTSIDE RECORDS SUMMARY | ~2019-09-18 | XMS | Encounter Summary ---
Demographics + + + | Address | [address] | | | [place] [address] | + + + | Home Phone [...] [place] | | | | | [address] | | + + + + + Care Team Providers + +------+ + | Care Inverform Machine Operator Name | Role | Phone | + +------+ + | Natalee Andersen NP | PCP | | + +------+ + Encounter Details +--------+ + + + + | Date | Type | Department | Care Team | Description | +--------+ + + + + | 07/25/ | Hospital | [facility] | Frandy Teresa, | Status post lumbar | | 2014 | Encounter | MED CTR XRAY [address] | DO [address] | spinal fusion | | | | [place] | [address] [place], [place] | | | | | [place] [address] | [address] | | | | | [phone] | | | +--------+ + + + [...] tablets by | 60 | 0 | 07/25/20 | | | HYDROcodone-acetamin | mouth every [...] + + + +---------+ + + | [place]-3 Fatty | Take 1,000 mg by | [...] [place] | | | | | | [address] | | | | | | | | +--------+---------+ + + + documented as of this encounter Procedures + +--------+ + + + | Procedure Name | Priori | Date/Time | Associated Diagnosis | Comments | | | ty | | | | + +--------+ + + + | XR LUMBAR SPINE 2 OR | Routin | 07/25/2014 | Status post lumbar | Results for this | | 3 VW | e | 2:31 PM | spinal fusion | procedure are in the | [...] + | Juan, Rad Results In - 07/25/2014 5:20 PM PDT [...] + | MISCELLANEOUS LAB | | | [phone] | + +---------+ + + | MISCELANIOUS LAB | | | [phone] | + +---------+ + + documented in this encounter Visit Diagnoses + + | Diagnosis | + + | Status post lumbar spinal fusion Arthrodesis status | + + documented in this encounter"
--- OUTSIDE RECORDS SUMMARY | ~2019-09-18 | XMS | Encounter Summary ---
Demographics + + + | Address | [address] | | | [place] [address] | + + + | Home Phone [...] [place] | | | | | [address] | | + + + + + Care Team Providers + +------+ + | Care Internist Medical Doctor Md Name | Role | Phone | + [...] 08/16/ | Documentati | [facility] | Katharine Moncada, | Other (urgent | | 2019 | on | CARDIOLOGY [place] | Technologist | report) | | | | [address] | | | | | | [place] | | | | | | [address] | | | | | | [phone] | | | +--------+ + + + [...] [place] | | | | | | [address] | | | | | | | | +--------+---------+ + + + documented as of this encounter Visit Diagnoses Not on filedocumented in this encounter"
--- OUTSIDE RECORDS SUMMARY | ~2019-09-18 | XMS | Encounter Summary ---
Demographics + + + | Address | [address] | | | [place] [address] | + + + | Home Phone [...] [place] | | | | | [address] | | + + + + + Care Team Providers + +------+ + | Care Rug Cutter Name | Role | Phone | [...] + + | 08/30/ | Telephone | [facility] | Ashley Chávez | Other (Patient wants | | 2019 | | CARDIOLOGY [place] | [place], Ground Layer | to take monitor | | | | [address] | | off. ) | | | | [address] | | | | | | [place] | | | | | | [address] | | | | | | [phone] | | | +--------+ + + + [...] [place] | | | | | | [address] | | | | | | | | +--------+---------+ + + + documented as of this encounter Visit Diagnoses Not on filedocumented in this encounter"
--- OUTSIDE RECORDS SUMMARY | ~2019-09-18 | XMS | Encounter Summary ---
Demographics + + + | Address | [address] | | | [place] [address] | + + + | Home Phone [...] [place], [place] | | | | | [address] | | + + + + + Care Team Providers + +------+ + | Care Air Conditioning Unit Assembler Name | Role | Phone | + +------+ + PCP | Unavailable | + +------+ + Encounter Details +--------+ + + + + | Date | Type | Department | Care Team | Description | +--------+ + + + + | 10/29/ | Hospital | [facility] | | | | 1994 | Encounter | MED CTR LABORATORY | | | | | | [address] | | | | | | [place] | | | | | | [address] | | | | | | [phone] | | | +--------+ + + + [...] | | | | | [place] | | | | | | [address] | | | | | | | | +--------+---------+ + + + documented as of this encounter Visit Diagnoses Not on filedocumented in this encounter"
--- OUTSIDE RECORDS SUMMARY | ~2019-09-18 | XMS | Encounter Summary ---
Demographics + + + | Address | [address] | | | [place] [address] | + + + | Home Phone [...] [place], [place] | | | | | [address] | | + + + + + Care Team Providers + +------+ + | Care Side Stapler Name | Role | Phone | + +------+ + PCP | Unavailable | + +------+ + Encounter Details +--------+ + + + + | Date | Type | Department | Care Team | Description | +--------+ + + + + | 02/02/ | Hospital | [facility] | | | | 1997 - | Encounter | MED CTR GENERIC PSY | | | | | | CONV DEPT [address] | | | | 02/05/ | | [address], | | | | 1997 | | [place] [address] | | | | | | [phone] | | | +--------+ + + + [...] [place] | | | | | | [address] | | | | | | | | +--------+---------+ + + + documented as of this encounter Visit Diagnoses Not on filedocumented in this encounter"
--- OUTSIDE RECORDS SUMMARY | ~2019-09-18 | XMS | Encounter Summary ---
Demographics + + + | Address | [address] | | | [place] [address] | + + + | Home Phone [...] [place] | | | | | [address] | | + + + + + Care Team Providers + +------+ + | Care Nanotechnician Name | Role | Phone | + [...] | | | | | | | [address] | | | | | | | Phone: | | | | | | | [phone] | | | | | | | Fax: | | | | | | | [phone] | | +--------+--------+ + + + + Encounter Details +--------+---------+ + + + | Date | Type | Department | Care Team | Description | +--------+---------+ + + + | 02/27/ | Office | [facility] | Baudilio Newman | Neuropathy (Primary | | 2015 | Visit | NEUROLOGY LAURIE | MD Pollo Need updated | Dx); Sleep apnea; | | | | [address], | address | Stroke (HCC); | | | | [address] [place] | | Thyroid disease | | | | [place] [address] | | | | | | [phone] | | | +--------+---------+ + + + [...] supply of blood, brain tissue quickly dies. [id number] [employer]. [address] [place] [address], [place] [address]. All righ ts reserved. This information is not intended as a substitute for professional medical care. Always follow your healthcare professional's instructions. documented in this encounter Progress Notes Baudilio Newman MD - 02/27/2015 10:31 AM PDTFormatting of this note might be differen t from the original. Baudilio Newman MD [address] [place] [address] Neurology Outpatient New Patient Note Referring Provider: [...] history. Notes from her recent hospitalization at [place] were reviewed in detail. Ms. Arndt started feeling off in the evening of 02/01. She felt dizzy and laid down to slee p. Upon waking, she felt her right side was numb. She tried to get up to go to the bathroom and realized she was weak as well on the right. She was taken to [facility] where she was diagnosed with a TIA/stroke [...] systol ically. She was reevaluated in the [facility] ED for one such event and [...] hospitalization . This specimen was characterized at [facility], but [facility] Unfortunately, Ms. Arndt notes that her right [...] Laterality: N/A; Surgeon: Frandy castellanos DO; Location: [facility] MAIN OR Current Medications: Outpatient Medications asenapine [...] tablet Take 15 mg by mouth nightly. [place]-3 Fatty Acids (FISH OIL CONCENTRATE) 1000 MG [...] BMI 46.04 kg /m2 Neck Circumference: 14" [place] Sleepiness Scale: 2 General: well developed and [...] Romberg test negative Radiographic Review: CTA from [facility] reviewed on [facility]. No significant stenoses seen [...] No results found for this basename: hba1c, fuv9lbg, ldl, ldldirect, ldlext, dldlex Lab Results Component [...] | | | | | [place], [place] | | | | | | [id number] | | | | | | | [...]
--- OUTSIDE RECORDS SUMMARY | ~2019-09-18 | XMS | Encounter Summary ---
Demographics + + + | Address | [address] | | | [place] [address] | + + + | Home Phone [...] [place] | | | | | [address] | | + + + + + Care Team Providers + +------+ + | Care Feller Buncher Operator Name | Role | Phone | [...] [address] | [address] [place], [place] | fusion | | | | [place], [place] | [address] | | | | | [address] | | | | | | [phone] | | | +--------+ + + + [...] [place] | | | | | | [address] | | | | | | | | +--------+---------+ + + + documented as of this encounter Visit Diagnoses + + | Diagnosis | + + | Lumbago - Primary | + + | S/P lumbar fusion Arthrodesis status | + + documented in this encounter"
--- OUTSIDE RECORDS SUMMARY | ~2019-09-18 | XMS | Encounter Summary ---
Demographics + + + | Address | [address] | | | [place] [address] | + + + | Home Phone [...] [place] | | | | | [address] | | + + + + + Care Team Providers + +------+ + | Care Reflexologist Name | Role | Phone | + [...] [address] | [address] [place], [place] | | | | | [place], [place] | [id number] | | | | | [address] | | | | | | [phone] | | | +--------+ + + + [...] | | | | | [place] | | | | | | [address] | | | | | | | | +--------+---------+ + + + documented as of this encounter Visit Diagnoses Not on filedocumented in this encounter"
--- OUTSIDE RECORDS SUMMARY | ~2019-09-18 | XMS | Encounter Summary ---
Demographics + + + | Address | [address] | | | [place] [address] | + + + | Home Phone [...] [place], [place] | | | | | [address] | | + + + + + Care Team Providers + +------+ + | Care Diesel Electrician Name | Role | Phone | + +------+ + PCP | Unavailable | + +------+ + Encounter Details +--------+ + + + + | Date | Type | Department | Care Team | Description | +--------+ + + + + | 09/24/ | Hospital | [facility] | | | | 1993 | Encounter | MED CTR LABORATORY | | | | | | [address] | | | | | | [place] | | | | | | [address] | | | | | | [phone] | | | +--------+ + + + [...] | | | | | [place] | | | | | | [address] | | | | | | | | +--------+---------+ + + + documented as of this encounter Visit Diagnoses Not on filedocumented in this encounter"
--- OUTSIDE RECORDS SUMMARY | ~2019-09-18 | XMS | Encounter Summary ---
Demographics + + + | Address | [address] | | | [place] [address] | + + + | Home Phone [...] [place], [place] | | | | | [address] | | + + + + + Care Team Providers + +------+ + | Care Manager Managed Care Name | Role | Phone | + +------+ + PCP | Unavailable | + +------+ + Encounter Details +--------+ + + + + | Date | Type | Department | Care Team | Description | +--------+ + + + + | 01/25/ | Hospital | [facility] | | | | 2002 | Encounter | MED CTR XRAY [address] | | | | | | [place] | | | | | | [place] [address] | | | | | | [phone] | | | +--------+ + + + [...] | | | | | [place] | | | | | | [address] | | | | | | | | +--------+---------+ + + + documented as of this encounter Visit Diagnoses Not on filedocumented in this encounter"
--- OUTSIDE RECORDS SUMMARY | ~2019-09-18 | XMS | Encounter Summary ---
Demographics + + + | Address | [address] | | | [place] [address] | + + + | Home Phone [...] [place], [place] | | | | | [address] | | + + + + + Care Team Providers + +------+ + | Care Ebd Teacher Name | Role | Phone | + +------+ + PCP | Unavailable | + +------+ + Encounter Details +--------+ + + + + | Date | Type | Department | Care Team | Description | +--------+ + + + + | 03/26/ | Hospital | [facility] | | | | 2001 | Encounter | MED CTR LABORATORY | | | | | | [address] | | | | | | [place] | | | | | | [address] | | | | | | [phone] | | | +--------+ + + + [...] | | | | | [place] | | | | | | [address] | | | | | | | | +--------+---------+ + + + documented as of this encounter Visit Diagnoses Not on filedocumented in this encounter"
--- OUTSIDE RECORDS SUMMARY | ~2019-09-18 | XMS | Encounter Summary ---
Demographics + + + | Address | [address] | | | [place] [address] | + + + | Home Phone [...] [place], [place] | | | | | [address] | | + + + + + Care Team Providers + +------+ + | Care Licensed Mortgage Loan Officer Name | Role | Phone | + +------+ + PCP | Unavailable | + +------+ + Encounter Details +--------+ + + + + | Date | Type | Department | Care Team | Description | +--------+ + + + + | 03/13/ | Hospital | [facility] | | | | 1996 - | Encounter | MED CTR GENERIC OP | | | | | | CONV DEPT [address] | | | | 03/21/ | | [address], | | | | 1996 | | [place] [address] | | | | | | [phone] | | | +--------+ + + + [...] [place] | | | | | | [address] | | | | | | | | +--------+---------+ + + + documented as of this encounter Visit Diagnoses Not on filedocumented in this encounter"
--- OUTSIDE RECORDS SUMMARY | ~2019-09-18 | XMS | Encounter Summary ---
Demographics + + + | Address | [address] | | | [place] [address] | + + + | Home Phone [...] [place] | | | | | [address] | | + + + + + Care Team Providers + +------+ + | Care Speed Operator Name | Role | Phone | + +------+ + | Basim Bolanos MD | PCP | | + +------+ + Encounter Details +--------+ + + + + | Date | Type | Department | Care Team | Description | +--------+ + + + + | 02/22/ | Abstract | [facility] [place] | [facility], | | | 2012 | | GASTROENTEROLOGY | [place] | | | | | [address] [place] | [place], [address] | | | | | [address] [place], [place] | [place], [place] | | | | | [address] | [address] | | | | | [phone] | | | +--------+ + + + [...] [place] | | | | | | [address] | | | | | | | | +--------+---------+ + + + documented as of this encounter Visit Diagnoses Not on filedocumented in this encounter"
--- OUTSIDE RECORDS SUMMARY | ~2019-09-18 | XMS | Encounter Summary ---
Demographics + + + | Address | [address] | | | [place] [address] | + + + | Home Phone [...] [place] | | | | | [address] | | + + + + + Care Team Providers + +------+ + | Care Household Personal Assistant Name | Role | Phone | [...] | | | | | pain, | [place], [place] | | | | | | bilateral | [address] | | | | | | Degenerative | Phone: | | | | | | disc | [phone] | | | | | | disease, | Fax: | | | | | | lumbar | [phone] | | | | | | Spinal [...] [address] [address] | [address] [place], [place] | (Primary Dx); Knee | | | | [place], [place] | [address] | pain, bilateral; | | | | [address] | | DEGENERATIVE DISC | | | | [phone] | | DISEASE, LUMBAR | | | [...] | | | | | [place] | | | | | | [address] | | | | | | | [...]
--- OUTSIDE RECORDS SUMMARY | ~2019-09-18 | XMS | Encounter Summary ---
Demographics + + + | Address | [address] | | | [place] [address] | + + + | Home Phone [...] [place], [place] | | | | | [address] | | + + + + + Care Team Providers + +------+ + | Care Solid Propellant Processor Name | Role | Phone | + +------+ + PCP | Unavailable | + +------+ + Encounter Details +--------+ + + + + | Date | Type | Department | Care Team | Description | +--------+ + + + + | 12/27/ | Hospital | [facility] | | | | 1995 | Encounter | MED CTR LABORATORY | | | | | | [address] | | | | | | [place] | | | | | | [address] | | | | | | [phone] | | | +--------+ + + + [...] | | | | | [place] | | | | | | [address] | | | | | | | | +--------+---------+ + + + documented as of this encounter Visit Diagnoses Not on filedocumented in this encounter"
--- OUTSIDE RECORDS SUMMARY | ~2019-09-18 | XMS | Encounter Summary ---
Demographics + + + | Address | [address] | | | [place] [address] | + + + | Home Phone [...] [place] | | | | | [address] | | + + + + + Care Team Providers + +------+ + | Care Rocket Propellant Plant Supervisor Name | Role | Phone | [...] + + | 08/20/ | Documentati | [facility] | Katharine Moncada, | Other (urgent | | 2019 | on | CARDIOLOGY [place] | Technologist | report) | | | | [address] | | | | | | [place] | | | | | | [address] | | | | | | [phone] | | | +--------+ + + + [...] [place] | | | | | | [address] | | | | | | | | +--------+---------+ + + + documented as of this encounter Visit Diagnoses Not on filedocumented in this encounter"
--- OUTSIDE RECORDS SUMMARY | ~2019-09-18 | XMS | Encounter Summary ---
Demographics + + + | Address | [address] | | | [place] [address] | + + + | Home Phone [...] [place], [place] | | | | | [address] | | + + + + + Care Team Providers + +------+ + | Care Welder Apprentice Name | Role | Phone | + +------+ + PCP | Unavailable | + +------+ + Encounter Details +--------+ + + + + | Date | Type | Department | Care Team | Description | +--------+ + + + + | 04/01/ | Hospital | [facility] | | | | 1998 | Encounter | MED CTR XRAY [address] | | | | | | [place] | | | | | | [place] [address] | | | | | | [phone] | | | +--------+ + + + [...] | | | | | [place] | | | | | | [address] | | | | | | | | +--------+---------+ + + + documented as of this encounter Visit Diagnoses Not on filedocumented in this encounter"
--- OUTSIDE RECORDS SUMMARY | ~2019-09-18 | XMS | Encounter Summary ---
Demographics + + + | Address | [address] | | | [place] [address] | + + + | Home Phone [...] [place] | | | | | [address] | | + + + + + Care Team Providers + +------+ + | Care Technology Applications Engineer Name | Role | Phone | [...] [address] | [address] [place], [place] | Anxiety; Anemia; | | | | [place], [place] | [address] | Irregular heartbeat; | | | | [address] | | Depression; | | | | [phone] | | Migraine; | | | | [...] | | | | | | [facility] | | | | | | [address] | | | | | | | [...]
--- OUTSIDE RECORDS SUMMARY | ~2019-09-18 | XMS | Encounter Summary ---
Demographics + + + | Address | [address] | | | [place] [address] | + + + | Home Phone [...] [place] | | | | | [address] | | + + + + + Care Team Providers + +------+ + | Care Cover Stitch Machine Operator Name | Role | Phone [...] | | | | | | | [address] | | | | | | | Phone: | | | | | | | [phone] | | | | | | | Fax: | | | | | | | [phone] | | +--------+ + + + + + Reason for Visit + + + | Reason | Comments | + + + | Follow-up | 4 Week PO | + + + Encounter Details +--------+---------+ + + + | Date | Type | Department | Care Team | Description | +--------+---------+ + + + | 07/25/ | Office | [facility] | Frandy Teresa, | Lumbar spondylosis | | 2013 | Visit | NEUR[address]URGERY [address] | DO [address] | (Primary Dx); S/P | | | | [address] | [address] [place], [place] | lumbar fusion | | | | [place] | [address] | | | | | [address] | | | | | | [phone] | | | +--------+---------+ + + + [...] Frandy Teresa DO [address] [facility] [place], [address] [place], [place] [address] FAX: NEUROSURGERY SURGICAL FOLLOW-UP CHIEF COMPLAINT: Chief [...] Take 15 mg by mouth nightl y. [place]-3 Fatty Acids (FISH OIL CONCENTRATE) 1000 MG [...] [place] | | | | | | [id number] | | | | | | | [...] + | MISCELLANEOUS LAB | | | [phone] | + +---------+ + + | MISCELANIOUS LAB | | | [phone] | + +---------+ + + documented in this encounter Visit Diagnoses + + | Diagnosis | + + | Lumbar spondylosis - Primary Lumbosacral spondylosis without myelopathy | + + | S/P lumbar fusion Arthrodesis status | + + documented in this encounter
--- OUTSIDE RECORDS SUMMARY | ~2019-09-18 | XMS | Encounter Summary ---
Demographics + + + | Address | [address] | | | [place] [address] | + + + | Home Phone [...] [place] | | | | | [address] | | + + + + + Care Team Providers + +------+ + | Care Athletic Director Name | Role | Phone | [...] + + | 04/05/ | Telephone | [facility] [place] | [facility], | Results | | 2012 | | GASTROENTEROLOGY | [address] | | | | | [address] | [place], [address] | | | | | [address] [place], [place] | [place], [place] | | | | | [address] | [address] | | | | | [phone] | | | +--------+ + + + [...] [place] | | | | | | [address] | | | | | | | | +--------+---------+ + + + documented as of this encounter Visit Diagnoses Not on filedocumented in this encounter"
--- OUTSIDE RECORDS SUMMARY | ~2019-09-18 | XMS | Encounter Summary ---
Demographics + + + | Address | [address] | | | [place] [address] | + + + | Home Phone [...] [place] | | | | | [address] | | + + + + + Care Team Providers + +------+ + | Care Clip Bolter And Wrapper Name | Role | Phone | [...] | | | spondylolist | | [address] | | | | | hesis | | [place], | | | | | Spinal | | [place] [address] | | | | | stenosis, | | Phone: | | | | | lumbar | | [phone] | | | | | region, | | Fax: | | | | | without | | [phone] | | | | | neurogenic | [...] | | | | | | | [place] | | | | | | [...] | | | | | | [place] | | | | | | | [...] | | | | | | SEG [place] | | | | | | | [...] + + | 07/02/ | Hospital | [facility] | Frandy Teresa, | Spinal stenosis, | | 2013 | Encounter | MED CTR XRAY [address] | DO [address] | lumbar region, | | | | [place] | [address] [place], [place] | without neurogenic | | | | [place] [address] | [address] | claudication | | | | [phone] | | (Primary Dx) | +--------+ + [...] + + + +---------+ + + | Peck-3 Fatty | Take 1,000 mg by | [...] [place] | | | | | | [address] | | | | | | | [...]
--- OUTSIDE RECORDS SUMMARY | ~2019-09-18 | XMS | Encounter Summary ---
Demographics + + + | Address | [address] | | | [place] [address] | + + + | Home Phone [...] [place] | | | | | [address] | | + + + + + Care Team Providers + +------+ + | Care Metal Roofing Mechanic Name | Role | Phone | [...] + + | 04/05/ | Telephone | [facility] [place] [facility], | Results | | 2012 | | GASTROENTEROLOGY | [address] | | | | | [address] | [place], [address] | | | | | [address] [place], [place] | [place], [place] | | | | | [address] | [address] | | | | | [phone] | | | +--------+ + + + [...] [place] | | | | | | [address] | | | | | | | | +--------+---------+ + + + documented as of this encounter Visit Diagnoses Not on filedocumented in this encounter"
--- OUTSIDE RECORDS SUMMARY | ~2019-09-18 | XMS | Encounter Summary ---
Demographics + + + | Address | [address] | | | [place] [address] | + + + | Home Phone [...] [place] | | | | | [address] | | + + + + + Care Team Providers + +------+ + | Care Hair Boiler Operator Name | Role | Phone | [...] + | 07/29/ | Telephone | [facility] | Frandy Teresa, | Other (multiple | | 2013 | | NEUROSURGERY [address] | DO [address] | questions) | | | | [address] | [address] [place], [place] | | | | | [place], [place] | [address] | | | | | [address] | | | | | | [phone] | | | +--------+ + + + [...] | | | | | [place] | | | | | | [address] | | | | | | | | +--------+---------+ + + + documented as of this encounter Visit Diagnoses Not on filedocumented in this encounter"
--- OUTSIDE RECORDS SUMMARY | ~2019-09-18 | XMS | Encounter Summary ---
Demographics + + + | Address | [address] | | | [place] [address] | + + + | Home Phone [...] [place] | | | | | [address] | | + + + + + Care Team Providers + +------+ + | Care Acidizer Name | Role | Phone | + +------+ + | Natalee Andesren NP | PCP | | + +------+ + Encounter Details +--------+ + + + + | Date | Type | Department | Care Team | Description | +--------+ + + + + | 09/27/ | Hospital | [facility] | Frandy Teresa, | Lumbar spondylosis; | | 2013 | Encounter | MED CTR XRAY [address] | DO [address] | S/P lumbar fusion | | | | [place] | [address] [place], [place] | | | | | [place] [address] | [address] | | | | | [phone] | | | +--------+ + + + [...] + + + +---------+ + + | Corn[place]-3 Fatty | Take 1,000 mg by | [...] [place] | | | | | | [address] | | | | | | | [...] + | MISCELLANEOUS LAB | | | [phone] | + +---------+ + + | MISCELANIOUS LAB | | | [phone] | + +---------+ + + documented in this encounter Visit Diagnoses + + | Diagnosis | + + | Lumbar spondylosis Lumbosacral spondylosis without myelopathy | + + | S/P lumbar fusion Arthrodesis status | + + documented in this encounter"
--- OUTSIDE RECORDS SUMMARY | ~2019-09-18 | XMS | Encounter Summary ---
Demographics + + + | Address | [address] | | | [place] [address] | + + + | Home Phone [...] [place] | | | | | [address] | | + + + + + Care Team Providers + +------+ + | Care Nursing Professor Name | Role | Phone | [...] | | | | | pain, | [place], [place] | | | | | | bilateral | [address] | | | | | | Degenerative | Phone: | | | | | | disc | [phone] | | | | | | disease, | Fax: | | | | | | lumbar | [phone] | | | | | | Spinal [...] [address] | [address] [place], [place] | (Primary Dx); Knee | | | | [place] | [address] | pain, bilateral; | | | | [address] | | DEGENERATIVE DISC | | | | [phone] | | DISEASE, LUMBAR | | | [...] | | | | | [address] | | | | | | [id number] | | | | | | | [...]
--- OUTSIDE RECORDS SUMMARY | ~2019-09-18 | XMS | Encounter Summary ---
Demographics + + + | Address | [address] | | | [place] [address] | + + + | Home Phone [...] [place] | | | | | [address] | | + + + + + Care Team Providers + +------+ + | Care Machine Silver Stripper Name | Role | Phone | + [...] | | | | | [address] | [place], [place] | | | | | [place], [place] | [address] | | | | | [address] | | | | | | [phone] | | | +--------+ + + + [...] [place] | | | | | | [address] | | | | | | | | +--------+---------+ + + + documented as of this encounter Visit Diagnoses Not on filedocumented in this encounter"
--- OUTSIDE RECORDS SUMMARY | ~2019-09-18 | XMS | Clinical Summary ---
Demographics + + + | Address | [address] | | | [place] [address] | + + + | Home Phone [...] [place] | | | | | [address] | | + + + + + Care Team Providers + +------+ + | Care Cream Gatherer Name | Role | Phone | + [...] | | Activ | | (VITAMIN D-3) 30349 | mouth Once a week. | | [...] | | | | | | | ([facility]) | | | | | | | [...] | | | | e | | ([employer] VERIO FLEX | | | | | [...] | | 2018 | | | D, Sliver Machine Operator | to take monitor | | | | | | off. ) | +--------+ + + + + | 08/28/ | Telephone | Cardiology | Ashley Chávez | Other (Patient has | | 2018 | | | D, Sliver Machine Operator | questions about | | | | [...] | 08/20/ | Documentati | Cardiology | Ktaharine Moncada, | Other (urgent | 2018 | on | | Technologist | report) | +--------+ + + + + | 08/16/ | Telephone | Cardiology | Ashley Chávez | Other (Called to | | 2018 | | | D, Sliver Machine Operator | tell patient what Dr | | [...] | | 2018 | | | D, Sliver Machine Operator | anxious about urgent | | | [...] | | 2018 | | | D, Sliver Machine Operator | about coverage. ) | +--------+ + + + + | 07/30/ | Telephone | Cardiology | Ashley Chávez | Other (Patient | | 2018 | | | D, Sliver Machine Operator | concerns ) | +--------+ + + + + | 07/24/ | Telephone | Cardiology | Ashley Chávez | Other (Patient is | | 2018 | | | D, Sliver Machine Operator | worried about paying | | | [...] | | 2018 | | | D, Sliver Machine Operator | called to cancel her | | [...] | | | | | [place], [place] | | | | | | [address] | | | | | | | [...] | [employer] - | | 04/02/ | [id number] | | 5ccImplanted: Qty: 1 on | | Spine | MEDT | | 2019 | | | 07/02/2014 by Frandy Teresa | | Lumbar | | | | /[id number] | | A, DO at [facility] | | | | | | 6-020 | | [facility] | | | | | | / | + +------+--------+ +--------+--------+--------+ | Graft Infuse Bone Kit Xxs - | | N/A: | SOFAMOR | | 01/21/ | [id number] | | [id number]: Qty: 1 on | | Spine | DANEK - DIV | | 2015 | 0 / | | 07/02/2014 by Frandy Teresa | | Lumbar | [employer] | | | /[id number] | | A, DO at [facility] | | | - SFDK | | | 06AAH | | [facility] | | | | | | | + +------+--------+ +--------+--------+--------+ | Imp Spn Spcr Cpstn 8x26mm - | | N/A: | SOFAMOR | | 01/11/ | [id number] | | [id number]: Qty: 1 on | | Spine | DANEK - DIV | | 2021 | 6 / | | 07/02/2014 by Frandy Teresa | | Lumbar | [employer] | | | [id number] | | DO Ronak at [facility] | | | - SFDK | | | 928 | | [facility] | | | | | | | + +------+--------+ +--------+--------+--------+ | Set Scrw Ns G5 Brk Off Ti | | N/A: | SOFAMOR | | | [id number] | | 4.75 - [id number]: | | Spine | DANEK - DIV | | | 0 / / | | Qty: 4 on 07/02/2014 by | | Lumbar | [employer] | | | | | Frandy Teresa DO at [facility] | | | - SFDK | | | | | [facility] | | | | | | [facility] | | | | | | | + +------+--------+ +--------+--------+--------+ | RodImplanted: Qty: 1 on | | N/A: | | | | [id number] | | 07/02/2014 by Frandy Teresa | | Spine | | | | 540 / | | A, DO at [facility] | | Lumbar | | | | / | | [facility] | | | | | | | + +------+--------+ +--------+--------+--------+ | RodImplanted: Qty: 1 on | | N/A: | MEDTROL - | | | [id number] | | 07/02/2014 by Frandy Teresa | | Spine | MDTR | | | 545 / | | A, DO at [facility] | | Lumbar | | | | / | | [facility] | | | | | | | + +------+--------+ +--------+--------+--------+ | Screw 7.5x50mm Sextant - | | N/A: | [employer] - | | | [id number] | | [id number]: Qty: 1 on | | Spine | MEDT | | | [id number] | | 07/02/2014 by Frandy Teresa | | Lumbar | | | | / / | | A, DO at [facility] | | | | | | | | [facility] | | | | | | | + +------+--------+ +--------+--------+--------+ | Cannulated ScrewImplanted: | | N/A: | MEDTROL - | | | [id number] | | Qty: 1 on 07/02/2014 by | | Spine | MDTR | | | 15655 | | Frandy Teresa DO at [facility] | | Lumbar | | | | / / | | [facility] | | | | | | | | [facility] | | | | | | | + +------+--------+ +--------+--------+--------+ | Cannulated ScrewImplanted: | | N/A: | [employer]TR[employer]IC - | | | [id number] | | Qty: 1 on 07/02/2014 by | | Spine | MEDT | | | [id number] | | Frandy Teresa DO at [facility] | | Lumbar | | | [...] +--------+ +---------+--------+ | MEDICARE | MEDICA | [id number] | 02/22/20 | [phone] | | Medica | | | RE | | 09-Pre | 5 | | re | | | PART A | | sent | | | | | | AND B | | | | | | + +--------+ +--------+ +---------+--------+ | MEDICARE | MEDICA | [id number] | 02/22/20 | [phone] | | Medica [...] | Self | [birth year] | | [address] | | | al/Fam | | 1955 | [phone] | [address] [place], [place] | | | [place] | | | 8 (Home) | [address] | + +--------+ +--------+ + + | Cindy Arndt L | Person | Self | [birth year] | | [address] | | | al/Fam | | 1955 | [phone] | [address] [place], [place] | | | [place] | | | 8 (Home) | [address] | + +--------+ +--------+ + + Advance Directives + + + + + | Type | Date Recorded | Patient | Explanation | | | | Technical Sales Advisor | | + + + + + | Power of | | | | | Endbander | | | | + + + [...]
--- OUTSIDE RECORDS SUMMARY | ~2019-09-18 | XMS | Encounter Summary ---
Demographics + + + | Address | [address] | | | [place] [address] | + + + | Home Phone [...] [place], [place] | | | | | [address] | | + + + + + Care Team Providers + +------+ + | Care Hand Endband Cutter Name | Role | Phone | [...] | SR | | | | | [phone] | | | +--------+ + + + [...] [place] | | | | | | [address] | | | | | | | | +--------+---------+ + + + documented as of this encounter Visit Diagnoses Not on filedocumented in this encounter
--- OUTSIDE RECORDS SUMMARY | ~2019-09-18 | XMS | Encounter Summary ---
Demographics + + + | Address | [address] | | | [place] [address] | + + + | Home Phone [...] [place], [place] | | | | | [address] | | + + + + + Care Team Providers + +------+ + | Care Melangeur Operator Name | Role | Phone | + +------+ + PCP | Unavailable | + +------+ + Encounter Details +--------+ + + + + | Date | Type | Department | Care Team | Description | +--------+ + + + + | 04/16/ | Hospital | [facility] | | | | 1997 | Encounter | MED CTR XRAY [address] | | | | | | [place] | | | | | | [place] [address] | | | | | | [phone] | | | +--------+ + + + [...] | | | | | [place] | | | | | | [address] | | | | | | | | +--------+---------+ + + + documented as of this encounter Visit Diagnoses Not on filedocumented in this encounter"
--- OUTSIDE RECORDS SUMMARY | ~2019-09-18 | XMS | Encounter Summary ---
Demographics + + + | Address | [address] | | | [place] [address] | + + + | Home Phone [...] [place] | | | | | [address] | | + + + + + Care Team Providers + +------+ + | Care Safe Deposit Box Rental Clerk Name | Role | Phone | [...] + + | 08/20/ | Documentati | [facility] | Katharine Moncada, | Other (urgent | | 2019 | on | CARDIOLOGY [place] | Technologist | report) | | | | [address] | | | | | | [place] | | | | | | [address] | | | | | | [phone] | | | +--------+ + + + [...] [place] | | | | | | [address] | | | | | | | | +--------+---------+ + + + documented as of this encounter Visit Diagnoses Not on filedocumented in this encounter"
--- OUTSIDE RECORDS SUMMARY | ~2019-09-18 | XMS | Encounter Summary ---
Demographics + + + | Address | [address] | | | [place] [address] | + + + | Home Phone [...] [place], [place] | | | | | [address] | | + + + + + Care Team Providers + +------+ + | Care Gum Machine Operator Name | Role | Phone | + +------+ + PCP | Unavailable | + +------+ + Encounter Details +--------+ + + + + | Date | Type | Department | Care Team | Description | +--------+ + + + + | 12/22/ | Hospital | [facility] | | | | 1993 - | Encounter | MED CTR GENERIC PSY | | | | | | CONV DEPT [address] | | | | 12/25/ | | [place], | | | | 1993 | | [place] [address] | | | | | | [phone] | | | +--------+ + + + [...] [place] | | | | | | [address] | | | | | | | | +--------+---------+ + + + documented as of this encounter Visit Diagnoses Not on filedocumented in this encounter"
--- OUTSIDE RECORDS SUMMARY | ~2019-09-18 | XMS | Encounter Summary ---
Demographics + + + | Address | [address] | | | [place] [address] | + + + | Home Phone [...] [place] | | | | | [address] | | + + + + + Care Team Providers + +------+ + | Care Launch Steward Name | Role | Phone | + [...] + + | 08/20/ | Documentati | [facility] | Katharine Moncada, | Other (urgent | | 2019 | on | CARDIOLOGY [place] | Technologist | report) | | | | [address] | | | | | | [place] | | | | | | [address] | | | | | | [phone] | | | +--------+ + + + [...] Progress Notes Katharine Moncada, Technologist - 08/20/2019 9:13 AM PDTReceived urgent report 08/20/19 Pt had a self triggered 08/18/19 at 15:22 90 BPM Called pt and she slept [...] [place] | | | | | | [address] | | | | | | | | +--------+---------+ + + + documented as of this encounter Visit Diagnoses Not on filedocumented in this encounter"
--- OUTSIDE RECORDS SUMMARY | ~2019-09-18 | XMS | Encounter Summary ---
Demographics + + + | Address | [address] | | | [place] [address] | + + + | Home Phone [...] [place] | | | | | [address] | | + + + + + Care Team Providers + +------+ + | Care Ems Instructor Name | Role | Phone | [...] + | 02/27/ | Telephone | [facility] | Katharine Cardona PA-C | Appointment (New | | 2014 | | MEDICINE [address] | [address] | Patient) | | | | [address] | [place] [address] | | | | | [place] [address] | [phone] | | | | | [phone] | | | +--------+ + + + [...] [place] | | | | | | [address] | | | | | | | | +--------+---------+ + + + documented as of this encounter Visit Diagnoses Not on filedocumented in this encounter"
--- OUTSIDE RECORDS SUMMARY | ~2019-09-18 | XMS | Encounter Summary ---
Demographics + + + | Address | [address] | | | [place] [address] | + + + | Home Phone [...] [place] | | | | | [address] | | + + + + + Care Team Providers + +------+ + | Care Certified Bench Jeweler Technician Name | Role | Phone | [...] | [address] [place] | [place], [address] | | | | | [address] [place], [place] | [place], [place] | | | | | [address] | [address] | | | | | [phone] | | | +--------+ + + + [...] | | | | | [place] | | | | | | [phone] | | | | | | | | +--------+---------+ + + + documented as of this encounter Visit Diagnoses Not on filedocumented in this encounter"
--- OUTSIDE RECORDS SUMMARY | ~2019-09-18 | XMS | Encounter Summary ---
Demographics + + + | Address | [address] | | | [place] [address] | + + + | Home Phone [...] [place] | | | | | [address] | | + + + + + Care Team Providers + +------+ + | Care Human Resources Executive Name | Role | Phone | [...] + + | 08/08/ | Telephone | [facility] | Ashley Chávez | Other (Questions | | 2019 | | CARDIOLOGY [place] | Pollo, E Business Manager | about coverage. ) | | | | [address] | | | | | | [place] | | | | | | [address] | | | | | | [phone] | | | +--------+ + + + [...] | | | | | [place] | | | | | | [address] | | | | | | | | +--------+---------+ + + + documented as of this encounter Visit Diagnoses Not on filedocumented in this encounter"
--- OUTSIDE RECORDS SUMMARY | ~2019-09-18 | XMS | Encounter Summary ---
Demographics + + + | Address | [address] | | | [place] [address] | + + + | Home Phone [...] [place], [place] | | | | | [address] | | + + + + + Care Team Providers + +------+ + | Care Floor Manager Name | Role | Phone | + +------+ + PCP | Unavailable | + +------+ + Encounter Details +--------+ + + + + | Date | Type | Department | Care Team | Description | +--------+ + + + + | 02/22/ | Hospital | [facility] | | | | 1996 | Encounter | MED CTR EMERGENCY | | | | | | [address] | | | | | | [place] | | | | | | [address] | | | | | | [phone] | | | +--------+ + + + [...] | | | | | [place] | | | | | | [address] | | | | | | | | +--------+---------+ + + + documented as of this encounter Visit Diagnoses Not on filedocumented in this encounter"
--- OUTSIDE RECORDS SUMMARY | ~2019-09-18 | XMS | Encounter Summary ---
Demographics + + + | Address | [address] | | | [place] [address] | + + + | Home Phone [...] [place] | | | | | [address] | | + + + + + Care Team Providers + +------+ + | Care Ammunition Officer Name | Role | Phone | [...] + + | 07/08/ | Telephone | [facility] | Frandy Teresa, | Other (post op call | | 2013 | | NEUROSURGERY [address] | DO [address] | ) | | | | [address] | [address] [place], [place] | | | | | [place], [place] | [address] | | | | | [address] | | | | | | [phone] | | | +--------+ + + + [...] | | | | | [place] | | | | | | [address] | | | | | | | | +--------+---------+ + + + documented as of this encounter Visit Diagnoses Not on filedocumented in this encounter"
--- OUTSIDE RECORDS SUMMARY | ~2019-09-18 | XMS | Encounter Summary ---
Demographics + + + | Address | [address] | | | [place] [address] | + + + | Home Phone [...] [place] | | | | | [address] | | + + + + + Care Team Providers + +------+ + | Care Brazing Machine Operator Name | Role | Phone [...] | | | | | | | [address] | | | | | | | Phone: | | | | | | | [phone] | | | | | | | Fax: | | | | | | | [phone] | | +--------+ + + + + + Reason for Visit + + + | Reason | Comments | + + + | Follow-up | 3 mo po | + + + Encounter Details +--------+---------+ + + + | Date | Type | Department | Care Team | Description | +--------+---------+ + + + | 09/27/ | Office | [facility] | Frandy Teresa, | Lumbar spondylosis | | 2013 | Visit | NEUROSURGERY [address] | DO [address] | (Primary Dx); S/P | | | | [address] | [address] [place], [place] | lumbar fusion | | | | [place] | [address] | | | | | [address] | | | | | | [phone] | | | +--------+---------+ + + + [...] m the original. Frandy Teresa DO [address] [facility] [address] [place] [address] FAX: NEUROSURGERY FOLLOW-UP CHIEF COMPLAINT: Chief Complaint [...] Laterality: N/A; Surgeon: Frandy castellanos DO; Location: [facility] MAIN OR CURRENT MEDICATIONS: Current Outpatient Prescriptions [...] Take 15 mg by mouth nightl y. [place]-3 Fatty Acids (FISH OIL CONCENTRATE) 1000 MG [...] | | | | | [place], [place] | | | | | | [address] | | | | | | | [...]
--- OUTSIDE RECORDS SUMMARY | ~2019-09-18 | XMS | Encounter Summary ---
Demographics + + + | Address | [address] | | | [place] [address] | + + + | Home Phone [...] [place] | | | | | [address] | | + + + + + Care Team Providers + +------+ + | Care Assistant Finance Director Name | Role | Phone | [...] + + | 08/15/ | Documentati | [facility] | Katharine Moncada, | Other (urgent | | 2019 | on | CARDIOLOGY [place] | Technologist | report) | | | | [address] | | | | | | [place] | | | | | | [address] | | | | | | [phone] | | | +--------+ + + + [...] [place] | | | | | | [address] | | | | | | | | +--------+---------+ + + + documented as of this encounter Visit Diagnoses Not on filedocumented in this encounter"
--- OUTSIDE RECORDS SUMMARY | ~2019-09-18 | XMS | Encounter Summary ---
Demographics + + + | Address | [address] | | | [place] [address] | + + + | Home Phone [...] [place] | | | | | [address] | | + + + + + Care Team Providers + +------+ + | Care Assistant Speech Language Pathologist Name | Role | Phone | + [...] | | | | | | [place] | | | | | | [place] [address] | | | | | | [phone] | | | +--------+ + + + [...] | | + +---------+ + + | [facility] DEPARTMENT OF | | | | | RADIOLOGY | | | | + +---------+ + + documented in this encounter Visit Diagnoses Not on filedocumented in this encounter"
--- OUTSIDE RECORDS SUMMARY | ~2019-09-18 | XMS | Encounter Summary ---
Demographics + + + | Address | [address] | | | [place] [address] | + + + | Home Phone [...] [place] | | | | | [address] | | + + + + + Care Team Providers + +------+ + | Care Tier And Detonator Name | Role | Phone | + [...] + + | 09/10/ | Documentati | [facility] | Katharine Moncada, | Other (urgent | | 2019 | on | CARDIOLOGY [place] | Technologist | report) | | | | [address] | | | | | | [place] | | | | | | [address] | | | | | | [phone] | | | +--------+ + + + [...] [place] | | | | | | [address] | | | | | | | | +--------+---------+ + + + documented as of this encounter Visit Diagnoses Not on filedocumented in this encounter"
--- OUTSIDE RECORDS SUMMARY | ~2019-09-18 | XMS | Encounter Summary ---
Demographics + + + | Address | [address] | | | [place] [address] | + + + | Home Phone [...] [place] | | | | | [address] | | + + + + + Care Team Providers + +------+ + | Care Truck Assembler Name | Role | Phone | + +------+ + | Thierry Fry MD | PCP | | + +------+ + Encounter Details +--------+ + + + + | Date | Type | Department | Care Team | Description | +--------+ + + + + | 03/06/ | Hospital | [facility] | Katharine Cardona PA-C | Essential | | 2015 | Encounter | MED CTR LABORATORY | [address] | hypertension | | | | [address] [place] | [place] [address] | | | | | [place], [place] | [phone] | | | | | [address] | | | | | | [phone] | | | +--------+ + + + [...] 0 | | | | (VITAMIN D-3) [address] | mouth Once a week. | | [...] + + + +---------+ + + | [place]-3 Fatty | Take 1,000 mg by | 60 each | 5 | 03/09/20 | | | Acids (FISH OIL | mouth 2 times daily. | | | 15 | 9 | | CONCENTRATE) 1000 MG | | | | | | | CAPS | | | | | | + + + +---------+ + + | [place]-3 Fatty | Take 1,000 mg by | [...] | | | | | [place] | | | | | | [address] | | | | | | | [...] mL/min/1.73m2 | [facility] | | | ANGUILLAN | RATE,ESTIMATED | | MEDICAL | | | | mL/min/1.23f3Xiud than | | CENTER - | | [...] | 9.6 | 8.3 - 10.5 | [facility] | | | | | mg/dL | [facility] | | | | | | MEDICAL | | | | | | CENTER - | | | | | | LABORATORY | | + + + + + + | Albumin | 4.1 | 3.2 - 5.0 g/dL | [facility] | | | | | | [facility] | | | | [...] [address] | [place] | [phone] | | [facility] | | [address] | | | - LABORATORY | | | | + + + + + documented in this encounter Visit Diagnoses + + | Diagnosis | + + | Essential hypertension Unspecified essential hypertension | + + documented in this encounter"
--- OUTSIDE RECORDS SUMMARY | ~2019-09-18 | XMS | Encounter Summary ---
Demographics + + + | Address | [address] | | | [place] [address] | + + + | Home Phone [...] [place], [place] | | | | | [address] | | + + + + + Care Team Providers + +------+ + | Care Bar Turner Name | Role | Phone | + +------+ + PCP | Unavailable | + +------+ + Encounter Details +--------+ + + + + | Date | Type | Department | Care Team | Description | +--------+ + + + + | 12/27/ | Hospital | [facility] | | | | 1997 - | Encounter | MED CTR GENERIC PSY | | | | | | CONV DEPT [address] | | | | 01/01/ | | [place], | | | | 1997 | | [place] [address] | | | | | | [phone] | | | +--------+ + + + [...] [address] | | | | | | [place] | | | | | | [address] | | | | | | | | +--------+---------+ + + + documented as of this encounter Visit Diagnoses Not on filedocumented in this encounter"
--- OUTSIDE RECORDS SUMMARY | ~2019-09-18 | XMS | Encounter Summary ---
Demographics + + + | Address | [address] | | | [place] [address] | + + + | Home Phone [...] [place] | | | | | [address] | | + + + + + Care Team Providers + +------+ + | Care R D Internship Name | Role | Phone | [...] + + | 02/01/ | Telephone | [facility] | Frandy Teresa, | Imaging Only | | 2019 | | NEUROSURGERY [address] | DO [address] | | | | | [address] | [address] [place], [place] | | | | | [place], [place] | [address] | | | | | [address] | | | | | | [phone] | | | +--------+ + + + [...] [place] | | | | | | [address] | | | | | | | | +--------+---------+ + + + documented as of this encounter Visit Diagnoses Not on filedocumented in this encounter"
--- OUTSIDE RECORDS SUMMARY | ~2019-09-18 | XMS | Encounter Summary ---
Demographics + + + | Address | [address] | | | [place] [address] | + + + | Home Phone [...] [place] | | | | | [address] | | + + + + + Care Team Providers + +------+ + | Care Veneer Stacker Name | Role | Phone | + +------+ + | Natalee Andersen NP | PCP | | + +------+ + Encounter Details +--------+ + + + + | Date | Type | Department | Care Team | Description | +--------+ + + + + | 06/25/ | Hospital | [facility] | Frandy Teresa, | Diabetes mellitus | | 2014 | Encounter | MED CTR OR INTRA OP | DO [address] | (HCC) (Primary Dx) | | | | [address] | [address] [place], [place] | | | | | [place], [place] | [address] | | | | | [address] | | | | | | [phone] | | | +--------+ + + + [...] + + + +---------+ + + | [place]-3 Fatty | Take 1,000 mg by | [...] [place] | | | | | | [id number] | | | | | | | [...] mL/min/1.73m2 | [facility] | | | DJ[facility]OUT[facility] | RATE,ESTIMATED | | MEDICAL | | | | mL/min/1.06k0Jkww than | | CENTER - | | [...] + | [facility] | [address] | [place], [place] | [phone] | | [facility] | | [address] | | | - LABORATORY | | | | + + + + + | [facility] | [address] | [place], [place] | | | [facility] | | [address] | | | - LABORATORY | | [...] + | [facility] | [address] | [place] | [phone] | | [facility] | | [address] | | | - LABORATORY | | | | + + + + + | [facility] | [address] | [place], [place] | | | [facility] | | [address] | | | - LABORATORY | | [...] [address] | [place] | [phone] | | [facility] | | [address] | | | - LABORATORY | | | | + + + + + | [facility] | [address] | [place] | | | [facility] | | [address] | | | - LABORATORY | | [...] | [place] | | | [facility] | | [address] | | | - BLOOD BANK | [...] | + + + + + | [facility] | [address] | [place] | [phone] | | [facility] | | [address] | | | - LABORATORY | | | | + + + + + | [facility] | [address] | [place], [place] | | | [facility] | | [address] | | | - LABORATORY | | [...]
--- OUTSIDE RECORDS SUMMARY | ~2019-09-18 | XMS | Encounter Summary ---
Demographics + + + | Address | [address] | | | [place] [address] | + + + | Home Phone [...] [place], [place] | | | | | [address] | | + + + + + Care Team Providers + +------+ + | Care Asbestos Surveyor Name | Role | Phone | + +------+ + PCP | Unavailable | + +------+ + Encounter Details +--------+ + + + + | Date | Type | Department | Care Team | Description | +--------+ + + + + | 01/25/ | Hospital | [facility] | | | | 2002 | Encounter | MED CTR XRAY [address] | | | | | | [place] | | | | | | [place] [address] | | | | | | [phone] | | | +--------+ + + + [...] | | | | | [place] | | | | | | [address] | | | | | | | | +--------+---------+ + + + documented as of this encounter Visit Diagnoses Not on filedocumented in this encounter"
--- OUTSIDE RECORDS SUMMARY | ~2019-09-18 | XMS | Encounter Summary ---
Demographics + + + | Address | [address] | | | [place] [address] | + + + | Home Phone [...] [place] | | | | | [address] | | + + + + + Care Team Providers + +------+ + | Care Bessemer Converter Blower Name | Role | Phone | + +------+ + | Basim Bolanos MD | PCP | | + +------+ + Encounter Details +--------+ + + + + | Date | Type | Department | Care Team | Description | +--------+ + + + + | 01/24/ | Abstract | [facility] [place] | [facility], | | | 2012 | | GASTROENTEROLOGY | FORTUNATO Thomas [address] | | | | | [address] | [place], [address] | | | | | [address] [place], [place] | [place], [place] | | | | | [address] | [address] | | | | | [phone] | | | +--------+ + + + [...] [place] | | | | | | [address] | | | | | | | | +--------+---------+ + + + documented as of this encounter Visit Diagnoses Not on filedocumented in this encounter"
--- OUTSIDE RECORDS SUMMARY | ~2019-09-18 | XMS | Encounter Summary ---
Demographics + + + | Address | [address] | | | [place] [address] | + + + | Home Phone [...] [place] | | | | | [address] | | + + + + + Care Team Providers + +------+ + | Care Environmental Engineering Manager Name | Role | Phone [...] + + | 03/04/ | Telephone | [facility] | Baudilio Newman | Other (Plavix) | | 2014 | | NEUROLOGY LAURIE | MD Pollo Need updated | | | | | [address] [facility], | address | | | | | [address] [place] | | | | | | [place] [address] | | | | | | [phone] | | | +--------+ + + + [...] [place] | | | | | | [address] | | | | | | | | +--------+---------+ + + + documented as of this encounter Visit Diagnoses Not on filedocumented in this encounter"
--- OUTSIDE RECORDS SUMMARY | ~2019-09-18 | XMS | Encounter Summary ---
Demographics + + + | Address | [address] | | | [place] [address] | + + + | Home Phone [...] [place] | | | | | [address] | | + + + + + Care Team Providers + +------+ + | Care Clinical Nurse Leader Name | Role | Phone | [...] + + | 02/26/ | Emergency | [facility] | [place], | CVA (cerebral | | 2015 | | MED CTR EMERGENCY | Davey Simons MD [address] | vascular accident) | | | | CENTER [address] | [address] [facility] | ([facility]) (Primary Dx) | | | | [place], [place] | [place] [address] | | | | | [address] | [phone] | | | | | [phone] | | | +--------+ + + + [...] + + + +---------+ + + | [place]-3 Fatty | Take 1,000 mg by | [...] | | | | | [place] | | | | | | [address] | | | | | | | [...] mL/min/1.73m2 | [facility] | | | [place] | RATE,ESTIMATED | | MEDICAL | | | | mL/min/1.62q0Empc than | | CENTER - | | [...] | 9.1 | 8.3 - 10.5 | [facility] | | | | | mg/dL | [...] [address] | [place] | [phone] | | [facility] | | [address] | | | - LABORATORY | | [...] [address] | [place] | [phone] | | [facility] | | [address] | | | - LABORATORY | | [...] | ---- | | | 02/26/2015 13:10 [facility] | | | Emergency -numbness/facial droop 02/26/2015 08:15 [facility] | | | [facility] 02/19/2015 | | [...] status 02/06/2015 10:46 | | | [facility] | | | [...] ------ | | | --------- [address] | | | [facility] 6 [address] | | | [facility] 7 0 Total | | | Note: Visits indicate total known visits. Medicaid [place] Dx are the | | | number of primary diagnoses on the [facility]'s non-emergent dx list. | | | | [...]
--- OUTSIDE RECORDS SUMMARY | ~2019-09-18 | XMS | Encounter Summary ---
Demographics + + + | Address | [address] | | | [place] [address] | + + + | Home Phone [...] [place] | | | | | [address] | | + + + + + Care Team Providers + +------+ + | Care Emu Farm Worker Name | Role | Phone | [...] + + | 09/10/ | Documentati | [facility] | Katharine Moncada, | Other (urgent | | 2019 | on | CARDIOLOGY [place] | Technologist | report) | | | | [address] | | | | | | [place] | | | | | | [address] | | | | | | [phone] | | | +--------+ + + + [...] [place] | | | | | | [address] | | | | | | | | +--------+---------+ + + + documented as of this encounter Visit Diagnoses Not on filedocumented in this encounter"
--- OUTSIDE RECORDS SUMMARY | ~2019-09-18 | XMS | Encounter Summary ---
Demographics + + + | Address | [address] | | | [place] [address] | + + + | Home Phone [...] [place] | | | | | [address] | | + + + + + Care Team Providers + +------+ + | Care Degreaser Operator Name | Role | Phone | [...] [address] | [address] [place], [place] | | | | | [place], [place] | [address] | | | | | [address] | | | | | | [phone] | | | +--------+ + + + [...] [place] | | | | | | [address] | | | | | | | [...] + | MISCELLANEOUS LAB | | | [phone] | + +---------+ + + | MISCELANIOUS LAB | | | [phone] | + +---------+ + + documented in this encounter Visit Diagnoses + + | Diagnosis | + + | Back pain - Primary Backache, unspecified | + + documented in this encounter"
--- OUTSIDE RECORDS SUMMARY | ~2019-09-18 | XMS | Encounter Summary ---
Demographics + + + | Address | [address] | | | [place] [address] | + + + | Home Phone [...] [place] | | | | | [address] | | + + + + + Care Team Providers + +------+ + | Care Bike Designer Name | Role | Phone | [...] | Frandy Simons DO | [address] | | | | | of skin | [address] | [place], | | | | | sensation | [address] | [place] | | | | | Arthrodesis | [place], [place] | [address] | | | | | status Left | [address] | Phone: | | | | | leg | Phone: | [phone] | | | | | weakness | [phone] | Fax: | | | | | Procedures | Fax: | [phone] | | | | | MRI Lumbar | [phone] | | | | | | Spine [...] [address] | [address] [place], [place] | | | | | [place] | [address] | | | | | [address] | | | | | | [phone] | | | +--------+ + + + [...] [place] | | | | | | [address] | | | | | | | [...] the round structure with high T1 and G9iwtdbb in the right L3 vertebral | | [...] | | |Dictated and Signed by: Wolf Caalbrese MD | | Electronically signed: 08/19/2014 4:36 PM | + + + +---------+ + + | Performing | Address | City/State/Zipcode | Phone Number | | Organization | | | | + +---------+ + + | MISCELLANEOUS LAB | | | [phone] | + +---------+ + + | MISCELANIOUS LAB | | | [phone] | + +---------+ + + documented in [...]
--- OUTSIDE RECORDS SUMMARY | ~2019-09-18 | XMS | Encounter Summary ---
Demographics + + + | Address | [address] | | | [place] [address] | + + + | Home Phone [...] [place] | | | | | [address] | | + + + + + Care Team Providers + +------+ + | Care Supervisor Respiratory Name | Role | Phone | + [...] + | 07/19/ | Telephone | [facility] | Frandy Teresa, | Appointment | | 2013 | | NEUROSURGERY [address] | DO [address] | | | | | [address] | [address] [place], [place] | | | | | [place], [place] | [address] | | | | | [address] | | | | | | [phone] | | | +--------+ + + + [...] [place] | | | | | | [address] | | | | | | | | +--------+---------+ + + + documented as of this encounter Visit Diagnoses Not on filedocumented in this encounter"
--- OUTSIDE RECORDS SUMMARY | ~2019-09-18 | XMS | Encounter Summary ---
Demographics + + + | Address | [address] | | | [place] [address] | + + + | Home Phone [...] [place] | | | | | [address] | | + + + + + Care Team Providers + +------+ + | Care Clinical Document Improvement Educator Name | Role | Phone | [...] [address] | [address] [place], [place] | fusion | | | | [place], [place] | [address] | | | | | [address] | | | | | | [phone] | | | +--------+ + + + [...] [place] | | | | | | [address] | | | | | | | | +--------+---------+ + + + documented as of this encounter Visit Diagnoses + + | Diagnosis | + + | Lumbago - Primary | + + | S/P lumbar fusion Arthrodesis status | + + documented in this encounter"
--- OUTSIDE RECORDS SUMMARY | ~2019-09-18 | XMS | Encounter Summary ---
Demographics + + + | Address | [address] | | | [place] [address] | + + + | Home Phone | | + + + | Preferred Language | Unknown | + + + | Marital Status | Single | + + + | Voodoo Affiliation | Unknown | + + + [...] [place] | | | | | [address] | | + + + + + Care Team Providers + +------+ + | Care Pump Tender Name | Role | Phone | [...] | Transcriptions | + + | Interface, Ent Consultant In - 11/04/2006 3:03 AM PST | | [address] | | [place], [place] [address] [facility] | | ClinicsOPERATION RECORDMed Rec No.: [...] skin retractor was put in place. The Gorman elevators wereused to separate the | | [...]
--- OUTSIDE RECORDS SUMMARY | ~2019-09-18 | XMS | Encounter Summary ---
Demographics + + + | Address | [address] | | | [place] [address] | + + + | Home Phone [...] [place], [place] | | | | | [address] | | + + + + + Care Team Providers + +------+ + | Care Soil Scientist Name | Role | Phone | [...] Location | | | | | | [phone] | | | +--------+ + + + [...] [place] | | | | | | [address] | | | | | | | | +--------+---------+ + + + documented as of this encounter Visit Diagnoses Not on filedocumented in this encounter"
--- OUTSIDE RECORDS SUMMARY | ~2019-09-18 | XMS | Encounter Summary ---
Demographics + + + | Address | [address] | | | [place] [address] | + + + | Home Phone [...] [place] | | | | | [address] | | + + + + + Care Team Providers + +------+ + | Care Desk Pens Assembler Name | Role | Phone | [...] + + | 08/22/ | Documentati | [facility] | Katharine Moncada, | Other (urgent | | 2019 | on | CARDIOLOGY [place] | Technologist | report) | | | | [address] | | | | | | [place] | | | | | | [address] | | | | | | [phone] | | | +--------+ + + + [...] [place] | | | | | | [address] | | | | | | | | +--------+---------+ + + + documented as of this encounter Visit Diagnoses Not on filedocumented in this encounter"
--- OUTSIDE RECORDS SUMMARY | ~2019-09-18 | XMS | Encounter Summary ---
Demographics + + + | Address | [address] | | | [place] [address] | + + + | Home Phone [...] [place], [place] | | | | | [address] | | + + + + + Care Team Providers + +------+ + | Care Pneumatic Jack Operator Name | Role | Phone | + +------+ + PCP | Unavailable | + +------+ + Encounter Details +--------+ + + + + | Date | Type | Department | Care Team | Description | +--------+ + + + + | 12/06/ | Hospital | [facility] | | | | 1994 | Encounter | MED CTR LABORATORY | | | | | | [address] | | | | | | [place] | | | | | | [address] | | | | | | [phone] | | | +--------+ + + + [...] | | | | | [place] | | | | | | [address] | | | | | | | | +--------+---------+ + + + documented as of this encounter Visit Diagnoses Not on filedocumented in this encounter"
--- OUTSIDE RECORDS SUMMARY | ~2019-09-18 | XMS | Encounter Summary ---
Demographics + + + | Address | [address] | | | [place] [address] | + + + | Home Phone [...] [place], [place] | | | | | [address] | | + + + + + Care Team Providers + +------+ + | Care Bookkeeping Clerks Supervisor Name | Role | Phone | + +------+ + PCP | Unavailable | + +------+ + Encounter Details +--------+ + + + + | Date | Type | Department | Care Team | Description | +--------+ + + + + | 09/23/ | Hospital | [facility] | | | | 1994 | Encounter | MED CTR LABORATORY | | | | | | [address] | | | | | | [place] | | | | | | [address] | | | | | | [phone] | | | +--------+ + + + [...] | | | | | [place] | | | | | | [address] | | | | | | | | +--------+---------+ + + + documented as of this encounter Visit Diagnoses Not on filedocumented in this encounter"
--- OUTSIDE RECORDS SUMMARY | ~2019-09-18 | XMS | Encounter Summary ---
Demographics + + + | Address | [address] | | | [place] [address] | + + + | Home Phone [...] [place] | | | | | [address] | | + + + + + Care Team Providers + +------+ + | Care Vulnerability Researcher Name | Role | Phone | + [...] + + | 08/09/ | Clinical | [facility] | Desiree Peterson DO | Syncope, unspecified | | 2019 | Support | CARDIOLOGY [place] | [address] | syncope type | | | | [address] | [place], [place] | | | | | [place] [address] | [address] | | | | | [place] | | | | | | [address] | Dora De La Torre | | | | | [phone] | [address]OLINE [address]endez [address] | | | | | | [address] | | | | | | [place] [address] | | | | | | [phone] | | | | | | | [...] [place] | | | | | | [address] | | | | | | | | +--------+---------+ + + + documented as of this encounter Visit Diagnoses + + | Diagnosis | + + | Syncope, unspecified syncope type | + + documented in this encounter"
--- OUTSIDE RECORDS SUMMARY | ~2019-09-18 | XMS | Encounter Summary ---
Demographics + + + | Address | [address] | | | [place] [address] | + + + | Home Phone [...] [place] | | | | | [address] | | + + + + + Care Team Providers + +------+ + | Care Assistant Attorney General Name | Role | Phone | + +------+ + | Thierry Fry MD | PCP | | + +------+ + Encounter Details +--------+ + + + + | Date | Type | Department | Care Team | Description | +--------+ + + + + | 03/06/ | Hospital | [facility] | Katharine Cardona PA-C | Essential | | 2015 | Encounter | MED CTR LABORATORY | [address] | hypertension | | | | [address] [place] | [place] [address] | | | | | [place], [place] | [phone] | | | | | [address] | | | | | | [phone] | | | +--------+ + + + [...] 0 | | | | (VITAMIN D-3) [address] | mouth Once a week. | | [...] + + + +---------+ + + | [place]-3 Fatty | Take 1,000 mg by | 60 each | 5 | 03/09/20 | | | Acids (FISH OIL | mouth 2 times daily. | | | 15 | 9 | | CONCENTRATE) 1000 MG | | | | | | | CAPS | | | | | | + + + +---------+ + + | [place]-3 Fatty | Take 1,000 mg by | [...] | | | | | [place] | | | | | | [address] | | | | | | | [...] [facility] | | | [place] | RATE,ESTIMATED | | MEDICAL | | | | mL/min/1.07q2Qrcp than | | CENTER - | | [...] | 8.3 - 10.5 | [facility] | | | | | mg/dL | [facility] | | | | | | MEDICAL | | | | | | CENTER - | | | | | | LABORATORY | | + + + + + + | Albumin | 4.1 | 3.2 - 5.0 g/dL | [facility] | | | | | | [facility] | | | | | [...] | ine Ratio | | | [facility] | | [...] [address] | [place] | [phone] | | [facility] | | [address] | | | - LABORATORY | | | | + + + + + documented in this encounter Visit Diagnoses + + | Diagnosis | + + | Essential hypertension Unspecified essential hypertension | + + documented in this encounter"
--- OUTSIDE RECORDS SUMMARY | ~2019-09-18 | XMS | Encounter Summary ---
Demographics + + + | Address | [address] | | | [place] [address] | + + + | Home Phone [...] [place] | | | | | [address] | | + + + + + Care Team Providers + +------+ + | Care Avionics Manager Name | Role | Phone | [...] [address] | [address] [place], [place] | Hypothyroidism; | | | | [place], [place] | [address] | GERD; BACK PAIN, | | | | [address] | | LUMBAR, WITH | | | | [phone] | | RADICULOPATHY; | | | | [...] [place] | | | | | | [address] | | | | | | | [...]
--- OUTSIDE RECORDS SUMMARY | ~2019-09-18 | XMS | Encounter Summary ---
Demographics + + + | Address | [address] | | | [place] [address] | + + + | Home Phone [...] [place] | | | | | [address] | | + + + + + Care Team Providers + +------+ + | Care Balance Weigher Name | Role | Phone | [...] [address] | [address] [place], [place] | (Primary Dx) | | | | [place], [place] | [address] | | | | | [address] | | | | | | [phone] | | | +--------+ + + + [...] [place] | | | | | | [address] | | | | | | | [...] + | MISCELLANEOUS LAB | | | [phone] | + +---------+ + + | MISCELANIOUS LAB | | | [phone] | + +---------+ + + documented in this encounter Visit Diagnoses + + | Diagnosis | + + | Status post lumbar spinal fusion - Primary Arthrodesis status | + + documented in this encounter"
--- OUTSIDE RECORDS SUMMARY | ~2019-09-18 | XMS | Encounter Summary ---
Demographics + + + | Address | [address] | | | [place] [address] | + + + | Home Phone [...] [place] | | | | | [address] | | + + + + + Care Team Providers + +------+ + | Care Broadcast Traffic Coordinator Name | Role | Phone | [...] + + | 08/08/ | Telephone | [facility] | Ashley Chávez | Other (Questions | | 2019 | | CARDIOLOGY [place] | Pollo, Gift Packer | about coverage. ) | | | | [address] | | | | | | [place] | | | | | | [address] | | | | | | [phone] | | | +--------+ + + + [...] | | | | | [place] | | | | | | [address] | | | | | | | | +--------+---------+ + + + documented as of this encounter Visit Diagnoses Not on filedocumented in this encounter"
--- OUTSIDE RECORDS SUMMARY | ~2019-09-18 | XMS | Encounter Summary ---
Demographics + + + | Address | [address] | | | [place] [address] | + + + | Home Phone | | + + + | Preferred Language | Unknown | + + + | Marital Status | Single | + + + | Anabaptism Affiliation | Unknown | + + + | Race | White | + + + | Ethnic Group | Not or | + + + Author + + + | Author | [facility] | + + + | Organization | [facility] | + + + | Address | Unknown | + + + | Phone | Unavailable | + + + Support + + + + + | Name | Relationship | Address | Phone | + + + + + | Kelsy Batuista | ECON | [address] | | | | | [place] | | | | | [address] | | + + + + + Care Team Providers + +------+ + | Care Pivot End Polisher Name | Role | Phone | [...] | | | | | | [place], [place] | | | | | | [address] | | | | | | [phone] | | | +--------+ + + + [...] | + + + + + | [facility] | [address] | [place] [address] | | | PATHOLOGY | [address] [...] Re | | | | | | [phone] | | | | + + + + + + + + | Specimen | + + | | + + + + + + + | Performing | Address | City/State/Zipcode | Phone Number | | Organization | | | | + + + + + | [facility] | [address] | [place] [address] | | | PATHOLOGY | [address] [...] Re | | | | | | [phone] | | | | + + + + + + + + | Specimen | + + | | + + + + + + + | Performing | Address | City/State/Zipcode | Phone Number | | Organization | | | | + + + + + | [facility] | [address] | [place] [address] | | | PATHOLOGY | [address] [...] Re | | | | | | [phone] | | | | + + + + + + + + | Specimen | + + | | + + + + + + + | Performing | Address | City/State/Zipcode | Phone Number | | Organization | | | | + + + + + | [facility] | [address] | [place] [address] | | | PATHOLOGY | [address] [...] Re | | | | | | [phone] | | | | + + + + + + + + | Specimen | + + | | + + + + + + + | Performing | Address | City/State/Zipcode | Phone Number | | Organization | | | | + + + + + | [facility] | [address] | [place] [address] | | | PATHOLOGY | [address] | | | + + + + + documented in this encounter Visit Diagnoses Not on filedocumented in this encounter"
--- OUTSIDE RECORDS SUMMARY | ~2019-09-18 | XMS | Encounter Summary ---
Demographics + + + | Address | [address] | | | [place] [address] | + + + | Home Phone [...] [place] | | | | | [address] | | + + + + + Care Team Providers + +------+ + | Care Sap Portal Consultant Name | Role | Phone | [...] + + | 08/30/ | Telephone | [facility] | Ashley Chávez | Other (Patient wants | | 2019 | | CARDIOLOGY [place] | Pollo, Rock Room Worker | to take monitor | | | | [address] | | off. ) | | | | [address] | | | | | | [place] | | | | | | [address] | | | | | | [phone] | | | +--------+ + + + [...] [place] | | | | | | [address] | | | | | | | | +--------+---------+ + + + documented as of this encounter Visit Diagnoses Not on filedocumented in this encounter"
--- OUTSIDE RECORDS SUMMARY | ~2019-09-18 | XMS | Encounter Summary ---
Demographics + + + | Address | [address] | | | [place] [address] | + + + | Home Phone [...] | [facility] | | [...] [place] | | | | | [address] | | + + + + + Care Team Providers + +------+ + | Care Workforce Consultant Name | Role | Phone | [...] + + | 09/10/ | Documentati | [facility] | Katharine Moncada, | Other (urgent | | 2019 | on | CARDIOLOGY [place] | Technologist | report) | | | | [address] | | | | | | [place] | | | | | | [address] | | | | | | [phone] | | | +--------+ + + + [...] [place] | | | | | | [address] | | | | | | | | +--------+---------+ + + + documented as of this encounter Visit Diagnoses Not on filedocumented in this encounter"
--- OUTSIDE RECORDS SUMMARY | ~2019-09-18 | XMS | Encounter Summary ---
Demographics + + + | Address | [address] | | | [place] [address] | + + + | Home Phone [...] [place] | | | | | [address] | | + + + + + Care Team Providers + +------+ + | Care Looper Operator Name | Role | Phone | [...] + + | 08/24/ | Documentati | [facility] | Katharine Moncada, | Other (urgent | | 2019 | on | CARDIOLOGY [place] | Technologist | report) | | | | [address] | | | | | | [place] | | | | | | [address] | | | | | | [phone] | | | +--------+ + + + [...] [place] | | | | | | [address] | | | | | | | | +--------+---------+ + + + documented as of this encounter Visit Diagnoses Not on filedocumented in this encounter"
--- OUTSIDE RECORDS SUMMARY | ~2019-09-18 | XMS | Encounter Summary ---
Demographics + + + | Address | [address] | | | [place] [address] | + + + | Home Phone [...] [place], [place] | | | | | [address] | | + + + + + Care Team Providers + +------+ + | Care Board Mill Supervisor Name | Role | Phone | + +------+ + PCP | Unavailable | + +------+ + Encounter Details +--------+ + + + + | Date | Type | Department | Care Team | Description | +--------+ + + + + | 02/16/ | Hospital | [facility] | | | | 1994 | Encounter | MED CTR LABORATORY | | | | | | [address] | | | | | | [place] | | | | | | [address] | | | | | | [phone] | | | +--------+ + + + [...] | | | | | [place] | | | | | | [address] | | | | | | | | +--------+---------+ + + + documented as of this encounter Visit Diagnoses Not on filedocumented in this encounter"
--- OUTSIDE RECORDS SUMMARY | ~2019-09-18 | XMS | Encounter Summary ---
Demographics + + + | Address | [address] | | | [place] [address] | + + + | Home Phone [...] [place] | | | | | [address] | | + + + + + Care Team Providers + +------+ + | Care Solar Sales Manager Name | Role | Phone [...] | | | spondylolist | | [address] | | | | | hesis | | [place], | | | | | Spinal | | [place] [address] | | | | | stenosis, | | Phone: | | | | | lumbar | | [phone] | | | | | region, | | Fax: | | | | | without | | [phone] | | | | | neurogenic | [...] + + | 07/02/ | Hospital | [facility] | Frandy Teresa, | Degenerative disc | | 2013 - | Encounter | MED CTR SURGICAL | DO [address] | disease, lumbar | | | | [address] | [place] [address] | (Primary Dx); | | 07/05/ | | [place] [address] | [id number] | Diabetes mellitus | | 2013 | | [phone] | | ([facility]); Disturbance | | | | [...] might be different fro m the original. [facility] DISCHARGE SUMMARY PATIENT NAME: Cindy [...] Stable for discharge to SNF. DISPOSITION: SNF ([facility]) DISCHARGE MEDICATIONS Medications prior to admission [...] prophylaxis -DC plan: SNF versus home with [facility] any time. Maria T Storm RN - 07/04/2014 6:56 PM PDTFoley cath dc'd and MARI drain dc'd no problems. Chris Lynn PA-C - 07/04/2014 7:43 AM PDT [facility] PROGRESS NOTE Pt. Name/Age/: Cindy Arndt 58 y.o. 1955 Med. Record Number: [id number] Date of admission: 07/02/2014 Subjective: The patient [...] home medications. D/C plan: Home tomorrow with [facility]. D/c mari drain and riley cath today. D/c product scientist. Patient Active Problem List Diagnosis LUMBAR DISC [...] signed by: Chris Nicole, 07/04/2014 7:45 [facility] Chris Lynn PA-C - 07/03/2014 7:13 AM PDT . [facility] PROGRESS NOTE Pt. Name/Age/: Cindy Arndt 58 y.o. 1955 Med. Record Number: [id number] Date of admission: 07/02/2014 Subjective: The patient [...] signed by: Chris Nicole, 07/03/2014 7:[address] [facility] [facility] Ton Menjivar, KRIS - 07/03/2014 6:50 [...] [place] | | | | | | [address] | | | | | | | [...] + | [facility] | [address] | [place], [place] | [phone] | | [facility] | | [address] | | | - LABORATORY | | | | + + + + + | [facility] | [address] | [place], [place] | | | [facility] | | [address] | | | - LABORATORY | | [...] + | [facility] | [address] | [place] | [phone] | | [facility] | | [address] | | | - LABORATORY | | | | + + + + + | [facility] | [address] | [place] | | | [facility] | | [address] | | | - LABORATORY | | [...] + | [facility] | [address] | [place] | [phone] | | [facility] | | [address] | | | - LABORATORY | | | | + + + + + | [facility] | [address] | [place] | | | [facility] | | [address] | | | - LABORATORY | | [...] + | [facility] | [address] | [place], [place] | [phone] | | [facility] | | [address] | | | - LABORATORY | | | | + + + + + | [facility] | [address] | [place], [place] | | | [facility] | | [address] | | | - LABORATORY | | [...] + | [facility] | [address] | [place] | [phone] | | [facility] | | [address] | | | - LABORATORY | | | | + + + + + | [facility] | [address] | [place] | | | [facility] | | [address] | | | - LABORATORY | | [...] + | [facility] | [address] | [place] | [phone] | | [facility] | | [address] | | | - LABORATORY | | | | + + + + + | [facility] | [address] | [place] | | | [facility] | | [address] | | | - LABORATORY | | [...] [address] | [place] | [phone] | | [facility] | | [address] | | | - LABORATORY | | | | + + + + + | [facility] | [address] | [place] | | | [facility] | | [address] | | | - LABORATORY | | [...] + | [facility] | [address] | [place], [place] | [phone] | | [facility] | | [address] | | | - LABORATORY | | | | + + + + + | [facility] | [address] | [place], [place] | | | [facility] | | [address] | | | - LABORATORY | | [...] [address] | [place] | [phone] | | [facility] | | [address] | | | - LABORATORY | | | | + + + + + | [facility] | [address] | [place], [place] | | | [facility] | | [address] | | | - LABORATORY | | [...] | of hardware for posterior fusion from T3rhpckgd S1 with interbody hardware at L5-S1. The [...] + | Performing | Address | City/State/[facility] | Phone Number | | Organization | | | | + +---------+ + + | MISCELLANEOUS LAB | | | [phone] | + +---------+ + + | MISCELANIOUS LAB | | | [phone] | + +---------+ + + POC Glucose [...] + | [facility] | [address] | [place], [place] | [phone] | | [facility] | | [address] | | | - LABORATORY | | | | + + + + + | [facility] | [address] | [place], [place] | | | [facility] | | [address] | | | - LABORATORY | | [...] + | [facility] | [address] | [place] | [phone] | | [facility] | | [address] | | | - LABORATORY | | | | + + + + + | [facility] | [address] | [place] | | | [facility] | | [address] | | | - LABORATORY | | [...] | | | POC | | | [facility] | | | | [...] + | [facility] | [address] | [place] | [phone] | | [facility] | | [address] | | | - LABORATORY | | | | + + + + + | [facility] | [address] | [place] | | | [facility] | | [address] | | | - LABORATORY | | [...] + | [facility] | [address] | [place], [place] | [phone] | | [facility] | | [address] | | | - LABORATORY | | | | + + + + + | [facility] | [address] | [place] | | | [facility] | | [address] | | | - LABORATORY | | [...] + | [facility] | [address] | [place] | [phone] | | [facility] | | [address] | | | - LABORATORY | | | | + + + + + | [facility] | [address] | [place] | | | [facility] | | [address] | | | - LABORATORY | | [...] St | [place] | | | [facility] | | [address] | | | - BLOOD BANK | [...] + +---------+ +---+---+---+ | morphine 5 mg/mL CERTIFIED PERSONAL TRAINER syringe | New Bag | 07/02/20 | [...] | | | | Dose(mg): 0, Starting CERTIFIED PERSONAL TRAINER | | | | | | | Dose(mg): 1, Incremental Increase | | | | | | | CERTIFIED PERSONAL TRAINER Dose(mg): 0.5, Maximum CERTIFIED PERSONAL TRAINER | | | | | | | [...]
--- OUTSIDE RECORDS SUMMARY | ~2019-09-18 | XMS | Encounter Summary ---
Demographics + + + | Address | [address] | | | [place] [address] | + + + | Home Phone [...] | Araceli Sibley | ECON | [place] | | | | | [address] | | + + + + + Care Team Providers + +------+ + | Care Sports Marketer Name | Role | Phone | + [...] + + | 08/14/ | Documentati | [facility] | Katharine Moncada, | Other (urgent | | 2019 | on | CARDIOLOGY [place] | Technologist | report) | | | | [address] | | | | | | [place] | | | | | | [address] | | | | | | [phone] | | | +--------+ + + + [...] [place] | | | | | | [address] | | | | | | | | +--------+---------+ + + + documented as of this encounter Visit Diagnoses Not on filedocumented in this encounter"
--- OUTSIDE RECORDS SUMMARY | ~2019-09-18 | XMS | Encounter Summary ---
Demographics + + + | Address | [address] | | | [place] [address] | + + + | Home Phone [...] [place], [place] | | | | | [address] | | + + + + + Care Team Providers + +------+ + | Care Radio Program Checker Name | Role | Phone | + +------+ + PCP | Unavailable | + +------+ + Encounter Details +--------+ + + + + | Date | Type | Department | Care Team | Description | +--------+ + + + + | 06/30/ | Hospital | [facility] | | | | 1999 - | Encounter | MED CTR GENERIC PSY | | | | | | CONV DEPT [address] | | | | 07/05/ | | [address] [place], | | | | 1999 | | [place] [address] | | | | | | [phone] | | | +--------+ + + + [...] [place] | | | | | | [address] | | | | | | | | +--------+---------+ + + + documented as of this encounter Visit Diagnoses Not on filedocumented in this encounter"
--- OUTSIDE RECORDS SUMMARY | ~2019-09-18 | XMS | Encounter Summary ---
Demographics + + + | Address | [address] | | | [place] [address] | + + + | Home Phone [...] [place] | | | | | [address] | | + + + + + Care Team Providers + +------+ + | Care Rail Car Operator Name | Role | Phone | [...] | 03/07/ | Telephone | [facility] | Katharine Cardona PA-C | Results | | 2014 | | [facility] | [address] | | | | | [address] | [place] [address] | | | | | [place], [place] | [phone] | | | | | [address] | | | | | | [phone] | | | +--------+ + + + [...] [place] | | | | | | [address] | | | | | | | | +--------+---------+ + + + documented as of this encounter Visit Diagnoses Not on filedocumented in this encounter"
--- OUTSIDE RECORDS SUMMARY | ~2019-09-18 | XMS | Encounter Summary ---
Demographics + + + | Address | [address] | | | [place] [address] | + + + | Home Phone [...] [place] | | | | | [address] | | + + + + + Care Team Providers + +------+ + | Care Loading Rack Supervisor Name | Role | Phone | [...] + + | 08/21/ | Documentati | [facility] | Katharine Moncada, | Other (urgent | | 2019 | on | CARDIOLOGY [place] | Technologist | report) | | | | [address] | | | | | | [place] | | | | | | [address] | | | | | | [phone] | | | +--------+ + + + [...] [place] | | | | | | [address] | | | | | | | | +--------+---------+ + + + documented as of this encounter Visit Diagnoses Not on filedocumented in this encounter"
--- OUTSIDE RECORDS SUMMARY | ~2019-09-18 | XMS | Encounter Summary ---
Demographics + + + | Address | [address] | | | [place] [address] | + + + | Home Phone [...] [place] | | | | | [address] | | + + + + + Care Team Providers + +------+ + | Care Midlevel Provider Name | Role | Phone | + [...] + + | 06/27/ | Office | [facility] | Yecenia Richardson, | Hypertension, | | 2019 | Visit | CARDIOLOGY [place] | MD Nitin RODRIGUES | unspecified type | | | | [address] | [place], [place] | (Primary Dx); | | | | [address] [facility] | [address] | Bradycardia | | | | [place] | | | | | | [address] | | | | | | [phone] | | | +--------+---------+ + + + [...] urgent basis. Had an appointment today in [facility]. She has been feeling dizzy as of [...] Take by mouth. Blood Glucose Monitoring Suppl (Miradia VERIO FLEX SYSTEM) w/Device KIT by Does [...] mg by mouth Daily. Cholecalciferol (VITAMIN D-3) 67693 units CAPS Take 50,000 Units by mouth [...] tablet Take 10 mg by mouth nightly. [place]-3 Fatty Acids (FISH OIL CONCENTRATE) 1000 MG [...] | | | | | | [place] [facility] | | | | | | [address] | | | | | | | [...]
--- OUTSIDE RECORDS SUMMARY | ~2019-09-18 | XMS | Encounter Summary ---
Demographics + + + | Address | [address] | | | [place] [address] | + + + | Home Phone [...] [place] | | | | | [address] | | + + + + + Care Team Providers + +------+ + | Care Ship Superintendent Name | Role | Phone | [...] 08/16/ | Documentati | [facility] | Katharine Moncada, | Other (urgent | | 2019 | on | CARDIOLOGY [place] | Technologist | report) | | | | [address] | | | | | | [place] | | | | | | [address] | | | | | | [phone] | | | +--------+ + + + [...] [place] | | | | | | [address] | | | | | | | | +--------+---------+ + + + documented as of this encounter Visit Diagnoses Not on filedocumented in this encounter"
--- OUTSIDE RECORDS SUMMARY | ~2019-09-18 | XMS | Encounter Summary ---
Demographics + + + | Address | [address] | | | [place] [address] | + + + | Home Phone [...] [place] | | | | | [address] | | + + + + + Care Team Providers + +------+ + | Care Mold Construction Supervisor Name | Role | Phone [...] + | 08/26/ | Refill | [facility] | Frandy Teresa, | Medication Refill | | 2013 | | NEUROSURGERY [address] | DO [address] | | | | | [address] [place] [address] | [place] [address] [place], [place] | | | | | [place], [place] | [address] | | | | | [address] | | | | | | [phone] | | | +--------+--------+ + + + [...] 10/11/ | Office | Cardiology | Desiree Peterosn DO | | | 2019 | Visit | | [address] | | | | | | [place] | | | | | | [address] | | | | | | | | +--------+---------+ + + + documented as of this encounter Visit Diagnoses Not on filedocumented in this encounter"
--- OUTSIDE RECORDS SUMMARY | ~2019-09-18 | XMS | Encounter Summary ---
Demographics + + + | Address | [address] | | | [place] [address] | + + + | Home Phone [...] [place] | | | | | [address] | | + + + + + Care Team Providers + +------+ + | Care Auto Body Repairer Fiberglass Name | Role | Phone | + +------+ + | Natalee Andersen NP | PCP | | + +------+ + Encounter Details +--------+ + + + + | Date | Type | Department | Care Team | Description | +--------+ + + + + | 07/25/ | Hospital | [facility] | Frandy Teresa, | Status post lumbar | | 2014 | Encounter | MED CTR XRAY [address] | DO [address] | spinal fusion | | | | [place] | [place] [address] [place], [place] | | | | | [place] [address] | [address] | | | | | [phone] | | | +--------+ + + + [...] + + + +---------+ + + | [place]-3 Fatty | Take 1,000 mg by | [...] [place] | | | | | | [address] | | | | | | | [...] + | MISCELLANEOUS LAB | | | [phone] | + +---------+ + + | MISCELANIOUS LAB | | | [phone] | + +---------+ + + documented in this encounter Visit Diagnoses + + | Diagnosis | + + | Status post lumbar spinal fusion Arthrodesis status | + + documented in this encounter"
--- OUTSIDE RECORDS SUMMARY | ~2019-09-18 | XMS | Encounter Summary ---
Demographics + + + | Address | [address] | | | [place] [address] | + + + | Home Phone [...] [place], [place] | | | | | [address] | | + + + + + Care Team Providers + +------+ + | Care Supreme Court Justice Name | Role | Phone | + +------+ + PCP | Unavailable | + +------+ + Encounter Details +--------+ + + + + | Date | Type | Department | Care Team | Description | +--------+ + + + + | 02/02/ | Hospital | [facility] | | | | 1997 | Encounter | MED CTR EMERGENCY | | | | | | [address] | | | | | | [place] | | | | | | [address] | | | | | | [phone] | | | +--------+ + + + [...] | | | | | [place] | | | | | | [address] | | | | | | | | +--------+---------+ + + + documented as of this encounter Visit Diagnoses Not on filedocumented in this encounter"
--- OUTSIDE RECORDS SUMMARY | ~2019-09-18 | XMS | Encounter Summary ---
Demographics + + + | Address | [address] | | | [place] [address] | + + + | Home Phone | | + + + | Preferred Language | Unknown | + + + | Marital Status | Single | + + + | Judaism Affiliation | Unknown | + + + [...] [place] | | | | | [address] | | + + + + + [...] | Transcriptions | + + | Interface, Child Life Therapist In - 10/24/2006 3:09 AM PST | | [id number] | | Road [place], [place] [address] [place] | | [facility] CenterOPERATION RECORDMed Rec No.: [id number] Date: [...]
--- OUTSIDE RECORDS SUMMARY | ~2019-09-18 | XMS | Encounter Summary ---
Demographics + + + | Address | [address] | | | [place] [address] | + + + | Home Phone [...] [place], [place] | | | | | [address] | | + + + + + Care Team Providers + +------+ + | Care Power Generation Equipment Repairer Name | Role | Phone | + +------+ + PCP | Unavailable | + +------+ + Encounter Details +--------+ + + + + | Date | Type | Department | Care Team | Description | +--------+ + + + + | 09/10/ | Hospital | [facility] | | | | 1992 | Encounter | MED CTR LABORATORY | | | | | | [address] | | | | | | [place] | | | | | | [address] | | | | | | [phone] | | | +--------+ + + + [...] | | | | | [place] | | | | | | [address] | | | | | | | | +--------+---------+ + + + documented as of this encounter Visit Diagnoses Not on filedocumented in this encounter"
--- OUTSIDE RECORDS SUMMARY | ~2019-09-18 | XMS | Encounter Summary ---
Demographics + + + | Address | [address] | | | [place] [address] | + + + | Home Phone [...] [place] | | | | | [address] | | + + + + + Care Team Providers + +------+ + | Care Animal Hospital Office Supervisor Name | Role | Phone | [...] [address] | [address] [place], [place] | (Primary Dx) | | | | [place], [place] | [address] | | | | | [address] | | | | | | [phone] | | | +--------+ + + + [...] [place] | | | | | | [address] | | | | | | | [...] + | MISCELLANEOUS LAB | | | [phone] | + +---------+ + + | MISCELANIOUS LAB | | | [phone] | + +---------+ + + documented in this encounter Visit Diagnoses + + | Diagnosis | + + | Status post lumbar spinal fusion - Primary Arthrodesis status | + + documented in this encounter"
--- OUTSIDE RECORDS SUMMARY | ~2019-09-18 | XMS | Encounter Summary ---
Demographics + + + | Address | [address] | | | [place] [address] | + + + | Home Phone [...] [place], [place] | | | | | [address] | | + + + + + Care Team Providers + +------+ + | Care Sand Polisher Name | Role | Phone | + +------+ + PCP | Unavailable | + +------+ + Encounter Details +--------+ + + + + | Date | Type | Department | Care Team | Description | +--------+ + + + + | 09/10/ | Hospital | [facility] | | | | 1992 | Encounter | MED CTR LABORATORY | | | | | | [address] | | | | | | [place] | | | | | | [address] | | | | | | [phone] | | | +--------+ + + + [...] | | | | | [place] | | | | | | [address] | | | | | | | | +--------+---------+ + + + documented as of this encounter Visit Diagnoses Not on filedocumented in this encounter"
--- OUTSIDE RECORDS SUMMARY | ~2019-09-18 | XMS | Encounter Summary ---
Demographics + + + | Address | [address] | | | [place] [address] | + + + | Home Phone [...] [place] | | | | | [address] | | + + + + + Care Team Providers + +------+ + | Care Bingo Manager Name | Role | Phone | [...] | | | spondylolist | | [address] | | | | | hesis | | [place], | | | | | Spinal | | [place] [address] | | | | | stenosis, | | Phone: | | | | | lumbar | | [phone] | | | | | region, | | Fax: | | | | | without | | [phone] | | | | | neurogenic | [...] | | | | | | | [place] | | | | | | [...] | | | | | | [place] | | | | | | | [...] | | | | | | [place] | | | | | | | [...] | | | | | [address] | [address] [place] | | | | | [place] | [phone] | | | | | [address] | | | | | | [phone] | | | +--------+ + + + [...] Easy mask AW. DL times one with [facility] easy view | | | 2 | Intubation | | | | 2 | | | | | 6 | | | +----+---+ + + | | 1 | AN Bite | | | | 2 | Block | | | | 2 | | | | | 7 | | | +----+---+ + + | | 1 | [place] | | | | 2 | 43-degrees | | | | 3 | | | | | 1 | | | +----+---+ + + | | 1 | [place] off | | | | 4 | [...] | | | | | [place], [place] | | | | | | [phone] | | | | | | | [...]
--- OUTSIDE RECORDS SUMMARY | ~2019-09-18 | XMS | Encounter Summary ---
Demographics + + + | Address | [address] | | | [place] [address] | + + + | Home Phone [...] [place] | | | | | [address] | | + + + + + Care Team Providers + +------+ + | Care Elevators Inspector Name | Role | Phone | [...] | Frandy Simons DO | [address] | | | | | of skin | [address] | [place], | | | | | sensation | [address] | [place] | | | | | Arthrodesis | [place], [place] | [address] | | | | | status Left | [address] | Phone: | | | | | leg | Phone: | [phone] | | | | | weakness | [phone] | Fax: | | | | | Procedures | Fax: | [phone] | | | | | MRI Lumbar | [phone] | | | | | | Spine [...] | Frandy Simons DO | [address] | | | | | of skin | [address] | [place], | | | | | sensation | [address] | [place] | | | | | Arthrodesis | [place] | [address] | | | | | status Left | [address] | Phone: | | | | | leg | Phone: | [phone] | | | | | weakness | [phone] | Fax: | | | | | Procedures | Fax: | [phone] | | | | | MRI Lumbar | [phone] | | | | | | Spine wo | | | | | | | Contrast | | | +--------+--------+ + + + + Encounter Details +--------+ + + + + | Date | Type | Department | Care Team | Description | +--------+ + + + + | 08/19/ | Hospital | [facility] | Frandy Teresa, | Status post lumbar | | 2013 | Encounter | MED CTR MRI [address] | DO [address] | spinal fusion; Left | | | | [place], | [address] [place] | leg numbness; Left | | | | [place] [address] | [address] | leg weakness | | | | [phone] | | | +--------+ + + + [...] + + + +---------+ + + | [place]-3 Fatty | Take 1,000 mg by | [...] [place] | | | | | | [address] | | | | | | | [...] the round structure with high T1 and M0qvqtou in the right L3 vertebral | | [...] + | MISCELLANEOUS LAB | | | [phone] | + +---------+ + + | MISCELANIOUS LAB | | | [phone] | + +---------+ + + documented in [...]
--- OUTSIDE RECORDS SUMMARY | ~2019-09-18 | XMS | Encounter Summary ---
Demographics + + + | Address | [address] | | | [place] [address] | + + + | Home Phone [...] [place] | | | | | [address] | | + + + + + Care Team Providers + +------+ + | Care Remelt Operator Name | Role | Phone | [...] + | 02/27/ | Telephone | [facility] | Katharine Cardona PA-C | Appointment (New | | 2014 | | MEDICINE [address] | [address] | Patient) | | | | Street [place] | [place] [address] | | | | | [place] [address] | [phone] | | | | | [phone] | | | +--------+ + + + [...] [place] | | | | | | [address] | | | | | | | | +--------+---------+ + + + documented as of this encounter Visit Diagnoses Not on filedocumented in this encounter"
--- OUTSIDE RECORDS SUMMARY | ~2019-09-18 | XMS | Encounter Summary ---
Demographics + + + | Address | [address] | | | [place] [address] | + + + | Home Phone [...] [place] | | | | | [address] | | + + + + + Care Team Providers + +------+ + | Care Medical Unit Secretary Name | Role | Phone | + [...] | 03/10/ | Refill | [facility] | Katharine Cardona PA-C | Medication Refill | | 2014 | | MEDICINE [address] | [address] [place] | | | | | Street [place] | [place] [address] | | | | | [place] [address] | [phone] | | | | | [phone] | | | +--------+--------+ + + + [...] [place] | | | | | | [address] | | | | | | | | +--------+---------+ + + + documented as of this encounter Visit Diagnoses + + | Diagnosis | + + | Essential hypertension - Primary Unspecified essential hypertension | + + documented in this encounter"
--- OUTSIDE RECORDS SUMMARY | ~2019-09-18 | XMS | Encounter Summary ---
Demographics + + + | Address | [address] | | | [place] [address] | + + + | Home Phone [...] [place] | | | | | [address] | | + + + + + Care Team Providers + +------+ + | Care Salesperson Fashion Accessories Name | Role | Phone | + [...] + + | 07/30/ | Telephone | [facility] | Ashley Chávez | Talia (Patient | | 2019 | | CARDIOLOGY [place] Abad, Objective C Developer | mariela ) | | | | [address] | | | | | | [place], [place] | | | | | | [address] | | | | | | [phone] | | | +--------+ + + + [...] [place] | | | | | | [address] | | | | | | | | +--------+---------+ + + + documented as of this encounter Visit Diagnoses Not on filedocumented in this encounter"
--- OUTSIDE RECORDS SUMMARY | ~2019-09-18 | XMS | Encounter Summary ---
Demographics + + + | Address | [address] | | | [place] [address] | + + + | Home Phone [...] [place] | | | | | [address] | | + + + + + Care Team Providers + +------+ + | Care Pulp Roller Name | Role | Phone | + +------+ + | Adriano Patrick MD | PCP | | + +------+ + Encounter Details +--------+ + + + + | Date | Type | Department | Care Team | Description | +--------+ + + + + | 06/12/ | Hospital | [facility] | Frandy Teresa, | No Show | | 2014 | Encounter | MED CTR | DO [address] | | | | | ELECTRODIAGNOSTICS | [address] [place], [place] | | | | | [address] [place] | [address] | | | | | [place] [address] | | | | | | [phone] | | | +--------+ + + + [...] [place] | | | | | | [address] | | | | | | | | +--------+---------+ + + + documented as of this encounter Visit Diagnoses Not on filedocumented in this encounter"
--- OUTSIDE RECORDS SUMMARY | ~2019-09-18 | XMS | Encounter Summary ---
Demographics + + + | Address | [address] | | | [place] [address] | + + + | Home Phone [...] [place] | | | | | [address] | | + + + + + Care Team Providers + +------+ + | Care Continuity Clerk Name | Role | Phone | [...] [address] | [address] [place], [place] | | | | | [place], [place] | [phone] | | | | | [address] | | | | | | [phone] | | | +--------+ + + + [...] | | | | | [place] | | | | | | [address] | | | | | | | | +--------+---------+ + + + documented as of this encounter Visit Diagnoses Not on filedocumented in this encounter"
--- OUTSIDE RECORDS SUMMARY | ~2019-09-18 | XMS | Encounter Summary ---
Demographics + + + | Address | [address] | | | [place] [address] | + + + | Home Phone [...] [place], [place] | | | | | [address] | | + + + + + Care Team Providers + +------+ + | Care V Belt Skiver Name | Role | Phone | + +------+ + PCP | Unavailable | + +------+ + Encounter Details +--------+ + + + + | Date | Type | Department | Care Team | Description | +--------+ + + + + | 01/16/ | Hospital | [facility] | | | | 2002 | Encounter | MED CTR XRAY [address] | | | | | | [address] | | | | | | [place] [address] | | | | | | [phone] | | | +--------+ + + + [...] | | | | | [place] | | | | | | [address] | | | | | | | | +--------+---------+ + + + documented as of this encounter Visit Diagnoses Not on filedocumented in this encounter"
--- OUTSIDE RECORDS SUMMARY | ~2019-09-18 | XMS | Encounter Summary ---
Demographics + + + | Address | [address] | | | [place] [address] | + + + | Home Phone [...] [place] | | | | | [address] | | + + + + + Care Team Providers + +------+ + | Care Electrical Tech/Project Manager Name | Role | Phone | [...] [address] | [address] [place], [place] | | | | | [place], [place] | [address] | | | | | [address] | | | | | | [phone] | | | +--------+ + + + [...] [place] | | | | | | [address] | | | | | | | [...] + | MISCELLANEOUS LAB | | | [phone] | + +---------+ + + | MISCELANIOUS LAB | | | [phone] | + +---------+ + + documented in this encounter Visit Diagnoses + + | Diagnosis | + + | Back pain - Primary Backache, unspecified | + + documented in this encounter"
--- OUTSIDE RECORDS SUMMARY | ~2019-09-18 | XMS | Encounter Summary ---
Demographics + + + | Address | [address] | | | [place] [address] | + + + | Home Phone [...] [place] | | | | | [address] | | + + + + + Care Team Providers + +------+ + | Care Staff Assistant Name | Role | Phone [...] + + | 08/21/ | Documentati | [facility] | Katharine Moncada, | Other (urgent | | 2019 | on | CARDIOLOGY [place] | Technologist | report) | | | | [address] | | | | | | [place] | | | | | | [address] | | | | | | [phone] | | | +--------+ + + + [...] [place] | | | | | | [address] | | | | | | | | +--------+---------+ + + + documented as of this encounter Visit Diagnoses Not on filedocumented in this encounter"
--- OUTSIDE RECORDS SUMMARY | ~2019-09-18 | XMS | Encounter Summary ---
Demographics + + + | Address | [address] | | | [place] [address] | + + + | Home Phone [...] [place] | | | | | [address] | | + + + + + Care Team Providers + +------+ + | Care Payment Rep Name | Role | Phone | + [...] + + | 08/16/ | Documentati | [facility] | Katharine Moncada, | Other (urgent | | 2019 | on | CARDIOLOGY [place] | Technologist | report) | | | | [address] | | | | | | [place] | | | | | | [address] | | | | | | [phone] | | | +--------+ + + + [...] [place] | | | | | | [address] | | | | | | | | +--------+---------+ + + + documented as of this encounter Visit Diagnoses Not on filedocumented in this encounter"
--- OUTSIDE RECORDS SUMMARY | ~2019-09-18 | XMS | Encounter Summary ---
Demographics + + + | Address | [address] | | | [place] [address] | + + + | Home Phone [...] [place] | | | | | [address] | | + + + + + Care Team Providers + +------+ + | Care Health Outreach Worker Name | Role | Phone | [...] + | 08/22/ | Documentati | [facility] | Katharine Moncada, | Other (urgent | | 2019 | on | CARDIOLOGY [place] | Technologist | report) | | | | [address] | | | | | | [place] | | | | | | [address] | | | | | | [phone] | | | +--------+ + + + [...] [place] | | | | | | [address] | | | | | | | | +--------+---------+ + + + documented as of this encounter Visit Diagnoses Not on filedocumented in this encounter"
--- OUTSIDE RECORDS SUMMARY | ~2019-09-18 | XMS | Encounter Summary ---
Demographics + + + | Address | [address] | | | [place] [address] | + + + | Home Phone [...] [place], [place] | | | | | [address] | | + + + + + Care Team Providers + +------+ + | Care Corrections Caseworker Name | Role | Phone | + +------+ + PCP | Unavailable | + +------+ + Encounter Details +--------+ + + + + | Date | Type | Department | Care Team | Description | +--------+ + + + + | 12/27/ | Hospital | [facility] | | | | 1997 - | Encounter | MED CTR GENERIC PSY | | | | | | CONV DEPT [address] | | | | 01/01/ | | [address], | | | | 1997 | | [place] [address] | | | | | | [phone] | | | +--------+ + + + [...] [place] | | | | | | [address] | | | | | | | | +--------+---------+ + + + documented as of this encounter Visit Diagnoses Not on filedocumented in this encounter"
--- OUTSIDE RECORDS SUMMARY | ~2019-09-18 | XMS | Encounter Summary ---
Demographics + + + | Address | [address] | | | [place] [address] | + + + | Home Phone [...] [place] | | | | | [address] | | + + + + + Care Team Providers + +------+ + | Care Manager Six Sigma Name | Role | Phone | + [...] + + | 08/14/ | Telephone | [facility] | Ashley Chávez | Other (Patient was | | 2019 | | CARDIOLOGY [place] Abad, Document Management Specialist | anxious about urgent | | | | [address] | | reports. ) | | | | [place] | | | | | | [address] | | | | | | [phone] | | | +--------+ + + + [...] [place] | | | | | | [address] | | | | | | | | +--------+---------+ + + + documented as of this encounter Visit Diagnoses Not on filedocumented in this encounter"
--- OUTSIDE RECORDS SUMMARY | ~2019-09-18 | XMS | Encounter Summary ---
Demographics + + + | Address | [address] | | | [place] [address] | + + + | Home Phone [...] [place], [place] | | | | | [address] | | + + + + + Care Team Providers + +------+ + | Care Sales Floor Associate Name | Role | Phone | + +------+ + PCP | Unavailable | + +------+ + Encounter Details +--------+ + + + + | Date | Type | Department | Care Team | Description | +--------+ + + + + | 05/23/ | Hospital | [facility] | | | | 1991 | Encounter | MED CTR XRAY [address] | | | | | | [place] | | | | | | [place] [address] | | | | | | [phone] | | | +--------+ + + + [...] | | | | | [place] | | | | | | [address] | | | | | | | | +--------+---------+ + + + documented as of this encounter Visit Diagnoses Not on filedocumented in this encounter"
--- OUTSIDE RECORDS SUMMARY | ~2019-09-18 | XMS | Encounter Summary ---
Demographics + + + | Address | [address] | | | [place] [address] | + + + | Home Phone [...] [place], [place] | | | | | [address] | | + + + + + Care Team Providers + +------+ + | Care Transfer Man Name | Role | Phone | + +------+ + PCP | Unavailable | + +------+ + Encounter Details +--------+ + + + + | Date | Type | Department | Care Team | Description | +--------+ + + + + | 03/11/ | [facility] | [facility] | Deon Gonzales | | | 2005 | Encounter | MED CTR SLEEP | MD [address] | | | | | [place] [address] | [address] [place] | | | | | [place], [place] | [place] [address] | | | | | [address] | [phone] | | | | | [phone] | | | +--------+ + + + [...] [place] | | | | | | [address] | | | | | | | | +--------+---------+ + + + documented as of this encounter Visit Diagnoses Not on filedocumented in this encounter"
--- OUTSIDE RECORDS SUMMARY | ~2019-09-18 | XMS | Encounter Summary ---
Demographics + + + | Address | [address] | | | [place] [address] | + + + | Home Phone [...] [place], [place] | | | | | [address] | | + + + + + Care Team Providers + +------+ + | Care Gas Line Repairer Name | Role | Phone | [...] Location | | | | | | [phone] | | | +--------+ + + + [...] [place] | | | | | | [address] | | | | | | | | +--------+---------+ + + + documented as of this encounter Visit Diagnoses Not on filedocumented in this encounter"
--- OUTSIDE RECORDS SUMMARY | ~2019-09-18 | XMS | Encounter Summary ---
Demographics + + + | Address | [address] | | | [place] [address] | + + + | Home Phone [...] [place] | | | | | [address] | | + + + + + Care Team Providers + +------+ + | Care Tassel Snipper Name | Role | Phone | + +------+ + | Natalee Andersen NP | PCP | | + +------+ + Encounter Details +--------+ + + + + | Date | Type | Department | Care Team | Description | +--------+ + + + + | 07/06/ | Hospital | [facility] | Latricia Feliciano | | | 2014 | Encounter | MED CTR ACUTE | D, PT [address] | | | | | PHYSICAL THERAPY | NEFTALIE [place] | | | | | [address] | [address] | | | | | [place] [address] | | | | | | [phone] | | | +--------+ + + + [...] + + + +---------+ + + | [place]-3 Fatty | Take 1,000 mg by | [...] | | | | [place] | | | | | | [address] | | | | | | | | +--------+---------+ + + + documented as of this encounter Visit Diagnoses Not on filedocumented in this encounter"
--- OUTSIDE RECORDS SUMMARY | ~2019-09-18 | XMS | Encounter Summary ---
Demographics + + + | Address | [address] | | | [place] [address] | + + + | Home Phone [...] [place] | | | | | [address] | | + + + + + Care Team Providers + +------+ + | Care Bar Useful Or Busser Name | Role | Phone | + [...] | | [address] | [place] [address] | | | | | [place], [place] | [phone] | | | | | [address] | | | | | | [phone] | | | +--------+ + + + [...] | | | | | | [facility] | | | | | | [address] | | | | | | | | +--------+---------+ + + + documented as of this encounter Visit Diagnoses Not on filedocumented in this encounter"
--- OUTSIDE RECORDS SUMMARY | ~2019-09-18 | XMS | Encounter Summary ---
Demographics + + + | Address | [address] | | | [place] [address] | + + + | Home Phone [...] [place] | | | | | [address] | | + + + + + [...] + + | 03/26/ | Telephone | [facility] | Thierry Fry | Medication Prior | | 2015 | | MEDICINE [facility] Daniel | MD Lisa [address] | Authorization | | | | [facility] | [facility] [place] | (Dexilant 60Mg) | | | | [place] [address] | [address] | | | | | [phone] | | | +--------+ + + + [...] [place] | | | | | | [address] | | | | | | | | +--------+---------+ + + + documented as of this encounter Visit Diagnoses Not on filedocumented in this encounter"
--- OUTSIDE RECORDS SUMMARY | ~2019-09-18 | XMS | Encounter Summary ---
Demographics + + + | Address | [address] | | | [place] [address] | + + + | Home Phone [...] [place] | | | | | [address] | | + + + + + Care Team Providers + +------+ + | Care Blanket Weaver Name | Role | Phone | [...] + + | 08/20/ | Documentati | [facility] | Katharine Moncada, | Other (urgent | | 2019 | on | CARDIOLOGY [place] | Technologist | report) | | | | [address] | | | | | | [place] | | | | | | [address] | | | | | | [phone] | | | +--------+ + + + [...] [place] | | | | | | [address] | | | | | | | | +--------+---------+ + + + documented as of this encounter Visit Diagnoses Not on filedocumented in this encounter"
--- OUTSIDE RECORDS SUMMARY | ~2019-09-18 | XMS | Encounter Summary ---
Demographics + + + | Address | [address] | | | [place] [address] | + + + | Home Phone [...] [place], [place] | | | | | [address] | | + + + + + Care Team Providers + +------+ + | Care Copy Director Name | Role | Phone | + +------+ + PCP | Unavailable | + +------+ + Encounter Details +--------+ + + + + | Date | Type | Department | Care Team | Description | +--------+ + + + + | 04/16/ | [facility] | [facility] | Deon Gonzales | | | 2005 | Encounter | MED CTR SLEEP | MD [address] | | | | | [place] [address] | [address] [place] | | | | | [place], [place] | [place] [address] | | | | | [address] | [phone] | | | | | [phone] | | | +--------+ + + + [...] [place] | | | | | | [address] | | | | | | | | +--------+---------+ + + + documented as of this encounter Visit Diagnoses Not on filedocumented in this encounter"
--- OUTSIDE RECORDS SUMMARY | ~2019-09-18 | XMS | Encounter Summary ---
Demographics + + + | Address | [address] | | | [place] [address] | + + + | Home Phone [...] [place], [place] | | | | | [address] | | + + + + + Care Team Providers + +------+ + | Care Student Development Advisor Name | Role | Phone | + +------+ + PCP | Unavailable | + +------+ + Encounter Details +--------+ + + + + | Date | Type | Department | Care Team | Description | +--------+ + + + + | 06/23/ | Hospital | [facility] | | | | 2000 | Encounter | MED CTR GENERIC OP | | | | | | CONV DEPT [address] | | | | | | [place], | | | | | | [place] [address] | | | | | | [phone] | | | +--------+ + + + [...] | | | | | [place] | | | | | | [address] | | | | | | | | +--------+---------+ + + + documented as of this encounter Visit Diagnoses Not on filedocumented in this encounter"
--- OUTSIDE RECORDS SUMMARY | ~2019-09-18 | XMS | Encounter Summary ---
Demographics + + + | Address | [address] | | | [place] [address] | + + + | Home Phone [...] [place], [place] | | | | | [address] | | + + + + + Care Team Providers + +------+ + | Care Tinter Photograph Name | Role | Phone | + +------+ + PCP | Unavailable | + +------+ + Encounter Details +--------+ + + + + | Date | Type | Department | Care Team | Description | +--------+ + + + + | 12/09/ | Hospital | [facility] | Serafin Bautista | | | 2012 | Encounter | MED CTR XRAY [address] | T, MD [address] | | | | | [place] | ST [place], [place] | | | | | [place] [address] | [address] | | | | | [phone] | | | +--------+ + + + [...] [place] | | | | | | [address] | | | | | | | [...] | [facility] | [facility] | | [address] [facility] | [facility] | | PROCEDURE NOTE EPIDURAL | [...] Manohar Martinez Conversion - 11/30/2013 4:[address] [facility] | | Diagnostic Imaging Department | | [address] [facility] | | | | [...] + + | Performing | Address | City/State[facility] | Phone Number | | Organization | | | | + +---------+ + + | [place] | | | | | [facility] | | | | + +---------+ + + documented in this encounter Visit Diagnoses Not on filedocumented in this encounter"
--- OUTSIDE RECORDS SUMMARY | ~2019-09-18 | XMS | Encounter Summary ---
Demographics + + + | Address | [address] | | | [place] [address] | + + + | Home Phone [...] [place] | | | | | [address] | | + + + + + Care Team Providers + +------+ + | Care Bed Worker Name | Role | Phone | [...] + + | 07/01/ | Telephone | [facility] | Frandy Teresa, | Other (Surgery ) | | 2013 | | NEUROSURGERY [address] | DO [address] | | | | | [address] | [address] [place], [place] | | | | | [place], [place] | [address] | | | | | [address] | | | | | | [phone] | | | +--------+ + + + [...] [place] | | | | | | [address] | | | | | | | | +--------+---------+ + + + documented as of this encounter Visit Diagnoses Not on filedocumented in this encounter"
--- OUTSIDE RECORDS SUMMARY | ~2019-09-18 | XMS | Encounter Summary ---
Demographics + + + | Address | [address] | | | [place] [address] | + + + | Home Phone [...] [place] | | | | | [address] | | + + + + + Care Team Providers + +------+ + | Care Human Resources Office Manager Name | Role | Phone | [...] | SLEEP DISORDER [address] | [address] | | | | | [address] [place] | [place], [place] | | | | | [place] [address] | [address] | | | | | [phone] | | | +--------+ + + + [...] | | | | [place] | | | | | | [address] | | | | | | | | +--------+---------+ + + + documented as of this encounter Visit Diagnoses Not on filedocumented in this encounter"
--- OUTSIDE RECORDS SUMMARY | ~2019-09-18 | XMS | Encounter Summary ---
Demographics + + + | Address | [address] | | | [place] [address] | + + + | Home Phone [...] [place] | | | | | [address] | | + + + + + Care Team Providers + +------+ + | Care Stone Banker Name | Role | Phone | + [...] + + | 08/15/ | Documentati | [facility] | Katharine Moncada, | Other (urgent | | 2019 | on | CARDIOLOGY [place] | Technologist | report) | | | | [address] | | | | | | [place] | | | | | | [address] | | | | | | [phone] | | | +--------+ + + + [...] [place] | | | | | | [address] | | | | | | | | +--------+---------+ + + + documented as of this encounter Visit Diagnoses Not on filedocumented in this encounter"
--- OUTSIDE RECORDS SUMMARY | ~2019-09-18 | XMS | Encounter Summary ---
Demographics + + + | Address | [address] | | | [place] [address] | + + + | Home Phone [...] [place] | | | | | [address] | | + + + + + Care Team Providers + +------+ + | Care Physician Specialist Name | Role | Phone | [...] [address] | [address] [place], [place] | | | | | [place], [place] | [id number] | | | | | [address] | | | | | | [phone] | | | +--------+ + + + [...] | | | | | [place] | | | | | | [address] | | | | | | | | +--------+---------+ + + + documented as of this encounter Visit Diagnoses Not on filedocumented in this encounter"
--- OUTSIDE RECORDS SUMMARY | ~2019-09-18 | XMS | Encounter Summary ---
Demographics + + + | Address | [address] | | | [place] [address] | + + + | Home Phone [...] [place] | | | | | [address] | | + + + + + Care Team Providers + +------+ + | Care Clicking Machine Operator Name | Role | Phone [...] + | 09/26/ | Refill | [facility] | Frandy Teresa, | Medication Refill | | 2013 | | NEUROSURGERY [address] | DO [address] | | | | | [address] | [address] [place], [place] | | | | | [place], [place] | [id number] | | | | | [address] | | | | | | [phone] | | | +--------+--------+ + + + [...] | | | | | [place] | | | | | | [address] | | | | | | | | +--------+---------+ + + + documented as of this encounter Visit Diagnoses Not on filedocumented in this encounter"
--- OUTSIDE RECORDS SUMMARY | ~2019-09-18 | XMS | Encounter Summary ---
Demographics + + + | Address | [address] | | | [place] [address] | + + + | Home Phone [...] [place] | | | | | [address] | | + + + + + Care Team Providers + +------+ + | Care Shipping Packer Name | Role | Phone | [...] | Transcriptions | + + | Interface, Merchandising Director In - 11/04/2006 3:03 AM PST | | [address] | | [place], [place] [address] [facility] | | ClinicsOPERATION RECORDMed Rec No.: [...] skin retractor was put in place. The [place] elevators wereused to separate the | | [...]
--- OUTSIDE RECORDS SUMMARY | ~2019-09-18 | XMS | Encounter Summary ---
Demographics + + + | Address | [address] | | | [place] [address] | + + + | Home Phone [...] [place], [place] | | | | | [address] | | + + + + + Care Team Providers + +------+ + | Care Senior Staff Specialized Employment Name | Role | Phone | + +------+ + PCP | Unavailable | + +------+ + Encounter Details +--------+ + + + + | Date | Type | Department | Care Team | Description | +--------+ + + + + | 10/29/ | Hospital | [facility] | | | | 1994 | Encounter | MED CTR LABORATORY | | | | | | [address] | | | | | | [place] | | | | | | [address] | | | | | | [phone] | | | +--------+ + + + [...] [place] | | | | | | [place] | | | | | | [address] | | | | | | | | +--------+---------+ + + + documented as of this encounter Visit Diagnoses Not on filedocumented in this encounter"
--- OUTSIDE RECORDS SUMMARY | ~2019-09-18 | XMS | Clinical Summary ---
Demographics + + + | Address | [address] | | | [place] [address] | + + + | Home Phone | | + + + | Preferred Language | Unknown | + + + | Marital Status | Single | + + + | Roman Catholic Affiliation | Unknown | + + + | Race | Unknown | + + + | Ethnic Group | Unknown | + + + Author + + + | Author | [facility] (Historical as of | | | 06-09-19) | + + + | Organization | [facility] (Historical as of | | | 06-09-19) [...] Providers + +------+ + | Care Psych Sales Specialist Name | Role | Phone | [...] | | Activ | | (VITAMIN D3) [address] | a week. | | | | [...] + | T2DM (type 2 diabetes mellitus) ([facility]) | 04/13/2013 | + + [...] +------+-------+ + | MEDICARE | MEDICA | [id number] | | | [address] | | | RE | | | | [place] [address] | | | IP-OP | | | [...] Self | [birth year] | Home: | [address] | | | al/Fam | | 1955 | [phone] | [address] [place] | | | [place] | | [phone] | + +--------+ +--------+ + +
--- OUTSIDE RECORDS SUMMARY | ~2019-09-18 | XMS | Encounter Summary ---
Demographics + + + | Address | [address] | | | [place] [address] | + + + | Home Phone [...] [place] | | | | | [address] | | + + + + + Care Team Providers + +------+ + | Care Garden Equipment Mechanic Name | Role | Phone | [...] + | 08/13/ | Documentati | [facility] | Katharine Moncada, | Other (urgent | | 2019 | on | CARDIOLOGY [place] | Technologist | report) | | | | [address] | | | | | | [place] | | | | | | [address] | | | | | | [phone] | | | +--------+ + + + [...] [place] | | | | | | [address] | | | | | | | | +--------+---------+ + + + documented as of this encounter Visit Diagnoses Not on filedocumented in this encounter"
--- OUTSIDE RECORDS SUMMARY | ~2019-09-18 | XMS | Encounter Summary ---
Demographics + + + | Address | [address] | | | [place] [address] | + + + | Home Phone [...] [place], [place] | | | | | [address] | | + + + + + Care Team Providers + +------+ + | Care Electrical Engineering Draftsperson Name | Role | Phone | + +------+ + PCP | Unavailable | + +------+ + Encounter Details +--------+ + + + + | Date | Type | Department | Care Team | Description | +--------+ + + + + | 12/27/ | Hospital | [facility] | | | | 1997 | Encounter | MED CTR EMERGENCY | | | | | | [address] | | | | | | [place] | | | | | | [address] | | | | | | [phone] | | | +--------+ + + + [...] | | | | | [place] | | | | | | [address] | | | | | | | | +--------+---------+ + + + documented as of this encounter Visit Diagnoses Not on filedocumented in this encounter"
--- OUTSIDE RECORDS SUMMARY | ~2019-09-18 | XMS | Encounter Summary ---
Demographics + + + | Address | [address] | | | [place] [address] | + + + | Home Phone [...] [place] | | | | | [address] | | + + + + + Care Team Providers + +------+ + | Care Management Department Chair Name | Role | Phone [...] + + | 08/13/ | Documentati | [facility] | Katharine Moncada, | Other (urgent | | 2019 | on | CARDIOLOGY [place] | Technologist | report) | | | | [address] | | | | | | [place] | | | | | | [address] | | | | | | [phone] | | | +--------+ + + + [...] [place] | | | | | | [address] | | | | | | | | +--------+---------+ + + + documented as of this encounter Visit Diagnoses Not on filedocumented in this encounter"
--- OUTSIDE RECORDS SUMMARY | ~2019-09-18 | XMS | Encounter Summary ---
Demographics + + + | Address | [address] | | | [place] [address] | + + + | Home Phone [...] [place] | | | | | [address] | | + + + + + Care Team Providers + +------+ + | Care Weed Eradicator Name | Role | Phone | + [...] | | | | | [address] | [place], [place] | | | | | [place], [place] | [address] | | | | | [address] | | | | | | [phone] | | | +--------+ + + + [...] [place] | | | | | | [address] | | | | | | | | +--------+---------+ + + + documented as of this encounter Visit Diagnoses Not on filedocumented in this encounter"
--- OUTSIDE RECORDS SUMMARY | ~2019-09-18 | XMS | Encounter Summary ---
Demographics + + + | Address | [address] | | | [place] [address] | + + + | Home Phone [...] [place] | | | | | [address] | | + + + + + Care Team Providers + +------+ + | Care Tongue Binder Name | Role | Phone | + [...] + + | 08/09/ | Documentati | [facility] | Katharine Moncada, | Other (end of study) | | 2019 | on | CARDIOLOGY [place] | Technologist | | | | | [address] | | | | | | [place], [place] | | | | | | [address] | | | | | | [phone] | | | +--------+ + + + [...] Technologist - 08/09/2019 11:59 PM PDT Cardiac Rn Renal Date of Event Monitor: 08/09/19 Referring Physician: [...] [place] | | | | | | [address] | | | | | | | | +--------+---------+ + + + documented as of this encounter Visit Diagnoses Not on filedocumented in this encounter"
--- OUTSIDE RECORDS SUMMARY | ~2019-09-18 | XMS | Encounter Summary ---
Demographics + + + | Address | [address] | | | [place] [address] | + + + | Home Phone [...] [place] | | | | | [address] | | + + + + + Care Team Providers + +------+ + | Care Workforce Planner Name | Role | Phone | + +------+ + | Natalee Andersen NP | PCP | | + +------+ + Encounter Details +--------+ + + + + | Date | Type | Department | Care Team | Description | +--------+ + + + + | 06/26/ | Hospital | [facility] | Heather Cordero PT | | | 2014 | Encounter | MED CTR ACUTE | [address] | | | | | PHYSICAL THERAPY | [place] | | | | | [address] [place] | [address] | | | | | [place] [address] | | | | | | [phone] | | | +--------+ + + + [...] + + + +---------+ + + | Montrose-3 Fatty | Take 1,000 mg by | [...] [place] | | | | | | [address] | | | | | | | | +--------+---------+ + + + documented as of this encounter Visit Diagnoses Not on filedocumented in this encounter"
--- OUTSIDE RECORDS SUMMARY | ~2019-09-18 | XMS | Encounter Summary ---
Demographics + + + | Address | [address] | | | [place] [address] | + + + | Home Phone [...] [place] | | | | | [address] | | + + + + + Care Team Providers + +------+ + | Care Paper Twister Name | Role | Phone | [...] + + | 08/20/ | Documentati | [facility] | Katharine Moncada, | Other (urgent | | 2019 | on | CARDIOLOGY [place] | Technologist | report) | | | | [address] | | | | | | [place] | | | | | | [address] | | | | | | [phone] | | | +--------+ + + + [...] | 10/11/ | Office | Cardiology | eDsiree Peterson DO | | | 2019 | Visit | | [address] | | | | | | [place] | | | | | | [address] | | | | | | | | +--------+---------+ + + + documented as of this encounter Visit Diagnoses Not on filedocumented in this encounter"
--- OUTSIDE RECORDS SUMMARY | ~2019-09-18 | XMS | Encounter Summary ---
Demographics + + + | Address | [address] | | | [place] [address] | + + + | Home Phone [...] [place] | | | | | [address] | | + + + + + Care Team Providers + +------+ + | Care Plum Packer Name | Role | Phone | [...] [place] | | | | | | [address] | | | | | | [phone] | | | +--------+ + + + [...] [place] | | | | | | [address] | | | | | | | | +--------+---------+ + + + documented as of this encounter Visit Diagnoses Not on filedocumented in this encounter"
--- OUTSIDE RECORDS SUMMARY | ~2019-09-18 | XMS | Encounter Summary ---
Demographics + + + | Address | [address] | | | [place] [address] | + + + | Home Phone [...] [place] | | | | | [address] | | + + + + + Care Team Providers + +------+ + | Care Fur Cutter Name | Role | Phone | + +------+ + | Natalee Andersen NP | PCP | | + +------+ + Encounter Details +--------+ + + + + | Date | Type | Department | Care Team | Description | +--------+ + + + + | 06/26/ | Hospital | [facility] | Heather Cordero PT | | | 2014 | Encounter | MED CTR ACUTE | [address] | | | | | PHYSICAL THERAPY | [place] | | | | | [address] [place] | [address] | | | | | [place] [address] | | | | | | [phone] | | | +--------+ + + + [...] + + + +---------+ + + | Egan-3 Fatty | Take 1,000 mg by | [...] [place] | | | | | | [address] | | | | | | | | +--------+---------+ + + + documented as of this encounter Visit Diagnoses Not on filedocumented in this encounter"
--- OUTSIDE RECORDS SUMMARY | ~2019-09-18 | XMS | Encounter Summary ---
Demographics + + + | Address | [address] | | | [place] [address] | + + + | Home Phone [...] [place], [place] | | | | | [address] | | + + + + + Care Team Providers + +------+ + | Care Pediatric Neurologist Name | Role | Phone | + +------+ + PCP | Unavailable | + +------+ + Encounter Details +--------+ + + + + | Date | Type | Department | Care Team | Description | +--------+ + + + + | 02/02/ | Hospital | [facility] | | | | 1997 | Encounter | MED CTR EMERGENCY | | | | | | [address] | | | | | | [place] | | | | | | [address] | | | | | | [phone] | | | +--------+ + + + [...] | | | | | [place] | | | | | | [address] | | | | | | | | +--------+---------+ + + + documented as of this encounter Visit Diagnoses Not on filedocumented in this encounter"
--- OUTSIDE RECORDS SUMMARY | ~2019-09-18 | XMS | Encounter Summary ---
Demographics + + + | Address | [address] | | | [place] [address] | + + + | Home Phone [...] [place], [place] | | | | | [address] | | + + + + + Care Team Providers + +------+ + | Care Furnace Process Supervisor Name | Role | Phone | + +------+ + PCP | Unavailable | + +------+ + Encounter Details +--------+ + + + + | Date | Type | Department | Care Team | Description | +--------+ + + + + | 05/23/ | Hospital | [facility] | Dale, Heath E A, | | | 2012 | Encounter | MED CTR XRAY [address] | MD [address] | | | | | [place] | [place] | | | | | [place] [address] | [address] | | | | | [phone] | | | +--------+ + + + [...] + + + +---------+ + + | [place]-3 Fatty | Take 1,000 mg by | [...] [place] | | | | | | [address] | | | | | | | [...] + + + | [facility] Diagnostic Imaging Department | [facility] | | [address] | [facility] | | [...] Transcribed Date/Time: | | | 05/23/2012 16:55 Rn Hemodialysis Charge: <Electronically Signed | | | by Adriano Anne MD> 05/23/12 5685 | | + + + + + | Procedure Note | + + | Manohar Martinez Conversion - 11/30/2013 5:47 PM [facility] | | Diagnostic Imaging Department [address] [place] | | LUMBAR SPINE MR WITHOUT CONTRAST, [...] 16:37 | |Transcribed Date/Time: 05/23/2012 16:55 | |Rn Hemodialysis Charge: | |<Electronically Signed by Adriano Anne MD> [...]
--- OUTSIDE RECORDS SUMMARY | ~2019-09-18 | XMS | Encounter Summary ---
Demographics + + + | Address | [address] | | | [place] [address] | + + + | Home Phone [...] [place], [place] | | | | | [address] | | + + + + + Care Team Providers + +------+ + | Care Sociology Professor Name | Role | Phone | + +------+ + PCP | Unavailable | + +------+ + Encounter Details +--------+ + + + + | Date | Type | Department | Care Team | Description | +--------+ + + + + | 07/17/ | Hospital | [facility] | | | | 1997 - | Encounter | MED CTR GENERIC PSY | | | | | | CONV DEPT [address] | | | | 07/25/ | | [place], | | | | 1997 | | [place] [address] | | | | | | [phone] | | | +--------+ + + + [...] [place] | | | | | | [address] | | | | | | | | +--------+---------+ + + + documented as of this encounter Visit Diagnoses Not on filedocumented in this encounter"
--- OUTSIDE RECORDS SUMMARY | ~2019-09-18 | XMS | Encounter Summary ---
Demographics + + + | Address | [address] | | | [place] [address] | + + + | Home Phone [...] [place], [place] | | | | | [address] | | + + + + + Care Team Providers + +------+ + | Care Flarer Name | Role | Phone | + +------+ + PCP | Unavailable | + +------+ + Encounter Details +--------+ + + + + | Date | Type | Department | Care Team | Description | +--------+ + + + + | 06/19/ | Hospital | [facility] | | | | 1991 - | Encounter | MED CTR GENERIC PSY | | | | | | CONV DEPT [address] | | | | 06/24/ | | [place], | | | | 1991 | | [place] [address] | | | | | | [phone] | | | +--------+ + + + [...] [place] | | | | | | [address] | | | | | | | | +--------+---------+ + + + documented as of this encounter Visit Diagnoses Not on filedocumented in this encounter"
--- OUTSIDE RECORDS SUMMARY | ~2019-09-18 | XMS | Encounter Summary ---
Demographics + + + | Address | [address] | | | [place] [address] | + + + | Home Phone [...] [place] | | | | | [address] | | + + + + + Care Team Providers + +------+ + | Care Treating Machine Operator Name | Role | Phone [...] Closed | | Radiology | Diagnoses | [place], | | | | | | Thoracic or | Natalee L, | | | | | | lumbosacral | MEDICAL ADMINISTRATIVE ASSISTANT [address] | | | | | | neuritis or | [address] | | | | | | | [address] | | | | | | radiculitis, | [place], | | | | | | unspecified | [place] [address] | | | | | | | Phone: | | | | | | Degeneration | [phone] | | | | | | of lumbar | Fax: | | | | | | or | [phone] | | | | | | lumbosacral [...] + + | 03/11/ | Hospital | [facility] | Natalee Andersen | Thoracic or | | 2013 | Encounter | MED CTR MRI [address] | L, MEDICAL ADMINISTRATIVE ASSISTANT [address] | lumbosacral neuritis | | | | [place], | [address] | or radiculitis, | | | | [place] [address] | [place] [address] | unspecified; | | | | [phone] | [phone] | Degeneration of | | | | [...] + + + +---------+ + + | [place]-3 Fatty | Take 1,000 mg by | [...] [place] | | | | | | [address] | | | | | | | [...] + | MISCELLANEOUS LAB | | | [phone] | + +---------+ + + | MISCELANIOUS LAB | | | [phone] | + +---------+ + + documented in this encounter Visit Diagnoses + + | Diagnosis | + + | Thoracic or lumbosacral neuritis or radiculitis, unspecified | + + | Degeneration of lumbar or lumbosacral intervertebral disc | + + documented in this encounter"
--- OUTSIDE RECORDS SUMMARY | ~2019-09-18 | XMS | Encounter Summary ---
Demographics + + + | Address | [address] | | | [place] [address] | + + + | Home Phone [...] [place], [place] | | | | | [address] | | + + + + + Care Team Providers + +------+ + | Care Wind Field Manager Name | Role | Phone | + +------+ + PCP | Unavailable | + +------+ + Encounter Details +--------+ + + + + | Date | Type | Department | Care Team | Description | +--------+ + + + + | 06/23/ | Hospital | [facility] | | | | 2000 | Encounter | MED CTR GENERIC OP | | | | | | CONV DEPT [address] | | | | | | [place], | | | | | | [place] [address] | | | | | | [phone] | | | +--------+ + + + [...] | | | | | [place] | | | | | | [address] | | | | | | | | +--------+---------+ + + + documented as of this encounter Visit Diagnoses Not on filedocumented in this encounter"
--- OUTSIDE RECORDS SUMMARY | ~2019-09-18 | XMS | Encounter Summary ---
Demographics + + + | Address | [address] | | | [place] [address] | + + + | Home Phone [...] [place] | | | | | [address] | | + + + + + Care Team Providers + +------+ + | Care Deck Steward Name | Role | Phone | [...] [place] | | | | | | [address] | | | | | | [phone] | | | +--------+ + + + [...] [place] | | | | | | [address] | | | | | | | | +--------+---------+ + + + documented as of this encounter Visit Diagnoses Not on filedocumented in this encounter"
--- OUTSIDE RECORDS SUMMARY | ~2019-09-18 | XMS | Encounter Summary ---
Demographics + + + | Address | [address] | | | [place] [address] | + + + | Home Phone [...] [place] | | | | | [address] | | + + + + + Care Team Providers + +------+ + | Care Manager Of Housekeeping Name | Role | Phone | [...] + + | 07/30/ | Telephone | [facility] | Ashley Chávez | Talia (Patient | | 2019 | | CARDIOLOGY GENESIS Abad, Marketing Operations Manager | mariela ) | | | | [address] | | | | | | [place], [place] | | | | | | [address] | | | | | | [phone] | | | +--------+ + + + [...] [place] | | | | | | [address] | | | | | | | | +--------+---------+ + + + documented as of this encounter Visit Diagnoses Not on filedocumented in this encounter"
--- OUTSIDE RECORDS SUMMARY | ~2019-09-18 | XMS | Encounter Summary ---
Demographics + + + | Address | [address] | | | [place] [address] | + + + | Home Phone [...] [place], [place] | | | | | [address] | | + + + + + Care Team Providers + +------+ + | Care Fiberglass Container Winding Operator Name | Role | Phone | + +------+ + PCP | Unavailable | + +------+ + Encounter Details +--------+ + + + + | Date | Type | Department | Care Team | Description | +--------+ + + + + | 12/06/ | Hospital | [facility] | | | | 1994 | Encounter | MED CTR LABORATORY | | | | | | [address] | | | | | | [place] | | | | | | [address] | | | | | | [phone] | | | +--------+ + + + [...] | | | | | [place] | | | | | | [address] | | | | | | | | +--------+---------+ + + + documented as of this encounter Visit Diagnoses Not on filedocumented in this encounter"
--- OUTSIDE RECORDS SUMMARY | ~2019-09-18 | XMS | Encounter Summary ---
Demographics + + + | Address | [address] | | | [place] [address] | + + + | Home Phone [...] [place] | | | | | [address] | | + + + + + Care Team Providers + +------+ + | Care Boat Ride Operator Name | Role | Phone | [...] + + | 08/09/ | Documentati | [facility] | Katharine Moncada, | Other (end of study) | | 2019 | on | CARDIOLOGY BODFISH | Technologist | | | | | [address] | | | | | | [place], [place] | | | | | | [address] | | | | | | [phone] | | | +--------+ + + + [...] Technologist - 08/09/2019 11:59 PM PDT Cardiac Residential Care Officer Date of Event Monitor: 08/09/19 Referring Physician: [...] [place] | | | | | | [address] | | | | | | | | +--------+---------+ + + + documented as of this encounter Visit Diagnoses Not on filedocumented in this encounter"
--- OUTSIDE RECORDS SUMMARY | ~2019-09-18 | XMS | Encounter Summary ---
Demographics + + + | Address | [address] | | | [place] [address] | + + + | Home Phone [...] [place], [place] | | | | | [address] | | + + + + + Care Team Providers + +------+ + | Care Tax Manager Public Name | Role | Phone | + +------+ + PCP | Unavailable | + +------+ + Encounter Details +--------+ + + + + | Date | Type | Department | Care Team | Description | +--------+ + + + + | 12/22/ | Hospital | [facility] | | | | 1993 - | Encounter | MED CTR GENERIC PSY | | | | | | CONV DEPT [address] | | | | 12/25/ | | [place], | | | | 1993 | | [place] [address] | | | | | | [phone] | | | +--------+ + + + [...] [place] | | | | | | [address] | | | | | | | | +--------+---------+ + + + documented as of this encounter Visit Diagnoses Not on filedocumented in this encounter"
--- OUTSIDE RECORDS SUMMARY | ~2019-09-18 | XMS | Encounter Summary ---
Demographics + + + | Address | [address] | | | [place] [address] | + + + | Home Phone [...] [place] | | | | | [address] | | + + + + + Care Team Providers + +------+ + | Care Television Engineer Name | Role | Phone | [...] + | 07/29/ | Telephone | [facility] | Frandy Teresa, | Other (multiple | | 2013 | | NEUROSURGERY [address] | DO [address] | questions) | | | | [address] | [address] [place], [place] | | | | | [place], [place] | [address] | | | | | [address] | | | | | | [phone] | | | +--------+ + + + [...] | | | | | [place] | | | | | | [address] | | | | | | | | +--------+---------+ + + + documented as of this encounter Visit Diagnoses Not on filedocumented in this encounter"
--- OUTSIDE RECORDS SUMMARY | ~2019-09-18 | XMS | Encounter Summary ---
Demographics + + + | Address | [address] | | | [place] [address] | + + + | Home Phone [...] [place] | | | | | [address] | | + + + + + Care Team Providers + +------+ + | Care Wire Transfer Clerk Name | Role | Phone | [...] | [address] [place], [place] | Hypothyroidism; | | | | [place], [place] | [address] | GERD; BACK PAIN, | | | | [address] | | LUMBAR, WITH | | | | [phone] | | RADICULOPATHY; | | | | [...] [place] | | | | | | [address] | | | | | | | [...]
--- OUTSIDE RECORDS SUMMARY | ~2019-09-18 | XMS | Encounter Summary ---
Demographics + + + | Address | [address] | | | [place] [address] | + + + | Home Phone [...] [place] | | | | | [address] | | + + + + + Care Team Providers + +------+ + | Care Nail Specialist Name | Role | Phone | [...] + | 07/15/ | Telephone | [facility] | Russell Alfaro PA | Other | | 2016 | | SLEEP DISORDER [address] | [address] | | | | | [address] [place] | [facility] [place] | | | | | [place] [address] | [address] | | | | | [phone] | | | +--------+ + + + [...] [place] | | | | | | [address] | | | | | | | | +--------+---------+ + + + documented as of this encounter Visit Diagnoses Not on filedocumented in this encounter"
--- OUTSIDE RECORDS SUMMARY | ~2019-09-18 | XMS | Encounter Summary ---
Demographics + + + | Address | [address] | | | [place] [address] | + + + | Home Phone [...] [place] | | | | | [address] | | + + + + + Care Team Providers + +------+ + | Care No Experience Name | Role | Phone | + [...] + | 07/15/ | Telephone | [facility] | Russell Alfaro PA | Other | | 2016 | | SLEEP DISORDER [address] | [address] | | | | | [address] [place] | [facility] [place] | | | | | [place] [address] | [address] | | | | | [phone] | | | +--------+ + + + [...] [place] | | | | | | [address] | | | | | | | | +--------+---------+ + + + documented as of this encounter Visit Diagnoses Not on filedocumented in this encounter"
--- OUTSIDE RECORDS SUMMARY | ~2019-09-18 | XMS | Encounter Summary ---
Demographics + + + | Address | [address] | | | [place] [address] | + + + | Home Phone [...] [place], [place] | | | | | [address] | | + + + + + Care Team Providers + +------+ + | Care Park Interpreter Name | Role | Phone | + +------+ + PCP | Unavailable | + +------+ + Encounter Details +--------+ + + + + | Date | Type | Department | Care Team | Description | +--------+ + + + + | 12/27/ | Hospital | [facility] | | | | 1997 | Encounter | MED CTR EMERGENCY | | | | | | [address] | | | | | | [place] | | | | | | [address] | | | | | | [phone] | | | +--------+ + + + [...] | | | | | [place] | | | | | | [address] | | | | | | | | +--------+---------+ + + + documented as of this encounter Visit Diagnoses Not on filedocumented in this encounter"
--- OUTSIDE RECORDS SUMMARY | ~2019-09-18 | XMS | Encounter Summary ---
Demographics + + + | Address | [address] | | | [place] [address] | + + + | Home Phone [...] Author + + + | Author | [facility] | + + + | Organization | [facility] | + + + | Address | Unknown | + + + | Phone | Unavailable | + + + Support + + + + + | Name | Relationship | Address | Phone | + + + + + | Kelsy Bautista | E[address] | [address] | | | | | [place] | | | | | [address] | | + + + + + Care Team Providers + +------+ + | Care Crutch Maker Name | Role | Phone | [...] [address] | | | | | | [place], [place] | | | | | | [address] | | | +--------+ + + + [...]
--- OUTSIDE RECORDS SUMMARY | ~2019-09-18 | XMS | Encounter Summary ---
Demographics + + + | Address | [address] | | | [place] [address] | + + + | Home Phone [...] [place] | | | | | [address] | | + + + + + Care Team Providers + +------+ + | Care Wire Drawing Die Maker Name | Role | Phone [...] + + | 09/10/ | Documentati | [facility] | Katharine Moncada, | Other (urgent | | 2019 | on | CARDIOLOGY [place] | Technologist | report) | | | | [address] | | | | | | [place] | | | | | | [address] | | | | | | [phone] | | | +--------+ + + + [...] [place] | | | | | | [address] | | | | | | | | +--------+---------+ + + + documented as of this encounter Visit Diagnoses Not on filedocumented in this encounter"
--- OUTSIDE RECORDS SUMMARY | ~2019-09-18 | XMS | Encounter Summary ---
Demographics + + + | Address | [address] | | | [place] [address] | + + + | Home Phone [...] [place] | | | | | [address] | | + + + + + Care Team Providers + +------+ + | Care Head Sawyer Automatic Name | Role | Phone | [...] | | | spondylolist | | [address] | | | | | hesis | | [place], | | | | | Spinal | | [place] [address] | | | | | stenosis, | | Phone: | | | | | lumbar | | [phone] | | | | | region, | | Fax: | | | | | without | | [phone] | | | | | neurogenic | [...] + + | 07/02/ | Surgery | [facility] | Frandy Teresa, | MIS L5-S1 | | 2013 | | MED CTR OR INTRA OP | DO [address] | TRANSFORAMINAL | | | | [address] | [address] [place], [place] | LUMBAR INTERBODY | | | | [place] | [id number] | FUSION | | | | [address] | | | | | | [phone] | | | +--------+---------+ + + + [...] might be different fro m the original. [facility] DISCHARGE SUMMARY PATIENT NAME: [...] Stable for discharge to SNF. DISPOSITION: SNF ([facility]) DISCHARGE MEDICATIONS Medications prior to admission [...] Take 15 mg by mouth nightl y. [place]-3 Fatty Acids (FISH OIL CONCENTRATE) 1000 MG [...] + + + +---------+ + + | [place]-3 Fatty | Take 1,000 mg by | [...] prophylaxis -DC plan: SNF versus home with [facility] any time. aria T Neff RN - 07/04/2014 6:56 PM PDTFoley cath dc'd and MARI drain dc'd no problems. Chris Lynn PA-C - 07/04/2014 7:43 AM PDT [facility] PROGRESS NOTE Pt. Name/Age/: Cindy Arndt 58 y.o. 1955 Med. Record Number: [id number] Date of admission: 07/02/2014 Subjective: The patient [...] home medications. D/C plan: Home tomorrow with [facility]. D/c mari drain and riley cath today. D/c consultative sales associate. Patient Active Problem List Diagnosis LUMBAR DISC [...] signed by: Chris Nicole, 07/04/2014 7:45 [facility] Chris Lynn PA-C - 07/03/2014 7:13 AM PDT . [facility] PROGRESS NOTE Pt. Name/Age/: Cindy Arndt 58 y.o. 1955 Med. Record Number: [id number] Date of admission: 07/02/2014 Subjective: The patient [...] Electronically signed by: Chris Nicole, 07/03/2014 7:13 [facility] Ton Johnston, KRIS - 07/03/2014 [...] | | | | | [place] | | | | | | [address] | | | | | | | [...] + | [facility] | [address] | [place], [place] | [phone] | | [facility] | | [address] | | | - LABORATORY | | | | + + + + + | [facility] | [address] | [place], [place] | | | [facility] | | [address] | | | - LABORATORY | | [...] + | [facility] | [address] | [place] | [phone] | | [facility] | | [address] | | | - LABORATORY | | | | + + + + + | [facility] | [address] | [place] | | | [facility] | | [address] | | | - LABORATORY | | [...] + | [facility] | [address] | [place], [place] | [phone] | | [facility] | | [address] | | | - LABORATORY | | | | + + + + + | [facility] | [address] | [place], [place] | | | [facility] | | [address] | | | - LABORATORY | | [...] + | [facility] | [address] | [place] | [phone] | | [facility] | | [address] | | | - LABORATORY | | | | + + + + + | [facility] | [address] | [place], [place] | | | [facility] | | [address] | | | - LABORATORY | | [...] + | [facility] | [address] | [place], [place] | [phone] | | [facility] | | [address] | | | - LABORATORY | | | | + + + + + | [facility] | [address] | [place] | | | [facility] | | [address] | | | - LABORATORY | | [...] + | [facility] | [address] | [place] | [phone] | | [facility] | | [address] | | | - LABORATORY | | | | + + + + + | [facility] | [address] | [place] | | | [facility] | | [address] | | | - LABORATORY | | [...] + | Performing | Address | City/State/[facility] | Phone Number | | Organization | | | | + + + + + | [facility] | [address] | [place] | [phone] | | [facility] | | [address] | | | - LABORATORY | | | | + + + + + | [facility] | [address] | [place] | | | [facility] | | [address] | | | - LABORATORY | | [...] + | [facility] | [address] | [place] | [phone] | | [facility] | | [address] | | | - LABORATORY | | | | + + + + + | [facility] | [address] | [place] | | | [facility] | | [address] | | | - LABORATORY | | [...] [address] | [place] | [phone] | | [facility] | | [address] | | | - LABORATORY | | | | + + + + + | [facility] | [address] | [place], [place] | | | [facility] | | [address] | | | - LABORATORY | | [...] | of hardware for posterior fusion from L4bnevakx S1 with interbody hardware at L5-S1. The [...] + | MISCELLANEOUS LAB | | | [phone] | + +---------+ + + | MISCELANIOUS LAB | | | [phone] | + +---------+ + + POC Glucose [...] + | [facility] | [address] | [place] | [phone] | | [facility] | | [address] | | | - LABORATORY | | | | + + + + + | [facility] | [address] | [place] | | | [facility] | | [address] | | | - LABORATORY | | [...] + | [facility] | [address] | [place], [place] | [phone] | | [facility] | | [address] | | | - LABORATORY | | | | + + + + + | [facility] | [address] | [place] | | | [facility] | | [address] | | | - LABORATORY | | [...] | | | POC | | | [facility] | | | | [...] + | [facility] | [address] | [place] | [phone] | | [facility] | | [address] | | | - LABORATORY | | | | + + + + + | [facility] | [address] | [place] | | | [facility] | | [address] | | | - LABORATORY | | [...] + | [facility] | [address] | [place] | [phone] | | [facility] | | [address] | | | - LABORATORY | | | | + + + + + | [facility] | [address] | [place] | | | [facility] | | [address] | | | - LABORATORY | | [...] + | [facility] | [address] | [place], [place] | [phone] | | [facility] | | [address] | | | - LABORATORY | | | | + + + + + | [facility] | [address] | [place], [place] | | | [facility] | | [address] | | | - LABORATORY | | [...] ST. | [address] | [place] | | | [facility] | | [address] | | | - BLOOD BANK | [...] mLs | | Surgical | | 1:200,000 0.25-1:785325 % | | 14 12:42 | | [...]
--- OUTSIDE RECORDS SUMMARY | ~2019-09-18 | XMS | Encounter Summary ---
Demographics + + + | Address | [address] | | | [place] [address] | + + + | Home Phone [...] [place] | | | | | [address] | | + + + + + Care Team Providers + +------+ + | Care Property Worker Name | Role | Phone | [...] | | [address] | [place], [place] | | | | | [place], [place] | [address] | | | | | [address] | | | | | | [phone] | | | +--------+ + + + [...] | | | | | [place] | | | | | | [address] | | | | | | | [...] 0.83 m/s | | | MV Dec [place]: 2.85 m/s2 MV DecT: 282.89 ms MV E Te[place]: 0.80 | | | m/s MV E/A Ratio: 0.96 E/E' Sept: 12.59 E' Lat: 0.08 m/s | | | E' Sept: 0.06 m/s RAP: 10 mmHg RV S': 0.11 m/s RVSP: | | | 27.96 mmHg TR maxP.96 mmHg TR Vmax: 2.11 m/s | | | Flying I Instructor: Authenticated by: Desiree Peterson MD Report Date/Time: | | | -- 45_[id number]:31:1 | | + + + + + [...] (A-L): 19.60 | | ml/m2LAAs A2C: 15.44 lw2QMWAU A-L A2C: 43.84 mlLAESV MOD A2C: 42.12 mlLALs A2C: | | 4.61 cmLAAs A4C: 14.18 gc1HACSK A-L A4C: 38.73 mlLAESV MOD A4C: 37.04 mlLALs A4C: | | 4.41 cmRAAs: 12.15 bq6NETLU A-L: 28.54 mlRAESV MOD: 28.66 mlRALs: 4.39 | | cmTAPSE: 2.42 cmAV Env.Ti: 293.94 msAV maxP.18 mmHgAV meanP.09 mmHgAV | | Vmax: 1.88 m/Eddie Vmean: 1.25 m/Eddie VTI: 36.84 cmAVA Vmax: 2.06 cm2AVA (VTI): | | 2.24 cz3DPWL Vmax: 0.00 cm2/m2AVAI (VTI): 0.00 cm2/m2LVOT Env.Ti: 299.59 msLVOT | | maxP.52 mmHgLVOT meanP.65 mmHgLVSI Dopp: 38.55 ml/m2LVSV Dopp: 82.89 | | mlLVOT Vmax: 1.27 m/sLVOT Vmean: 0.91 m/sLVOT VTI: 27.27 cmMV A Teodoro: 0.83 m/sMV | | Dec [place]: 2.85 m/s2MV DecT: 282.89 msMV E [place]: 0.80 m/sMV E/A Ratio: 0.96E/E' | | Sept: 12.59E' Lat: 0.08 m/sE' Sept: 0.06 m/sRAP: 10 mmHgRV S': 0.11 m/sRVSP: | | 27.96 mmHgTR maxP.96 mmHgTR Vmax: 2.11 m/s Flying I Instructor:Authenticated by: | | Desiree Peterson MDReport Date/Time: -- [id number]:[id number] IMPRESSION: 1. Overall left | | ventricular [...] A [place]: 0.83 m/s | |MV Dec [place]: 2.85 m/s2 | |MV DecT: 282.89 ms | |MV E [place]: 0.80 m/s | |MV E/A Ratio: 0.96 | |E/E' Sept: 12.59 | |E' Lat: 0.08 m/s | |E' Sept: 0.06 m/s | |RAP: 10 mmHg | |RV S': 0.11 m/s | |RVSP: 27.96 mmHg | |TR maxP.96 mmHg | |TR Vmax: 2.11 m/s | | | |Flying I Instructor: | |Authenticated by: Desiree Peterson MD | |Report Date/Time: -- [id number]:[id number] | | | |IMPRESSION: | |1. Overall [...]
--- OUTSIDE RECORDS SUMMARY | ~2019-09-18 | XMS | Encounter Summary ---
Demographics + + + | Address | [address] | | | [place] [address] | + + + | Home Phone [...] [place], [place] | | | | | [address] | | + + + + + Care Team Providers + +------+ + | Care Retail Management Keyholder Name | Role | Phone | + +------+ + PCP | Unavailable | + +------+ + Encounter Details +--------+ + + + + | Date | Type | Department | Care Team | Description | +--------+ + + + + | 07/17/ | Hospital | [facility] | | | | 1997 - | Encounter | MED CTR GENERIC PSY | | | | | | CONV DEPT [address] | | | | 07/25/ | | [place], | | | | 1997 | | [place] [address] | | | | | | [phone] | | | +--------+ + + + [...] [place] | | | | | | [address] | | | | | | | | +--------+---------+ + + + documented as of this encounter Visit Diagnoses Not on filedocumented in this encounter"
--- OUTSIDE RECORDS SUMMARY | ~2019-09-18 | XMS | Encounter Summary ---
Demographics + + + | Address | [address] | | | [place] [address] | + + + | Home Phone [...] [place] | | | | | [address] | | + + + + + Care Team Providers + +------+ + | Care Doormaker Name | Role | Phone | + +------+ + | Natalee Andersen NP | PCP | | + +------+ + Encounter Details +--------+ + + + + | Date | Type | Department | Care Team | Description | +--------+ + + + + | 06/25/ | Hospital | [facility] | Latricia Feliciano | | | 2014 | Encounter | [facility] | D, PT [address] | | | | | PHYSICAL THERAPY | [place] | | | | | [address] | [address] | | | | | [place] [address] | | | | | | [phone] | | | +--------+ + + + [...] + + + +---------+ + + | Mantoloking-3 Fatty | Take 1,000 mg by | [...] [place] | | | | | | [id number] | | | | | | | | +--------+---------+ + + + documented as of this encounter Visit Diagnoses Not on filedocumented in this encounter"
--- OUTSIDE RECORDS SUMMARY | ~2019-09-18 | XMS | Encounter Summary ---
Demographics + + + | Address | [address] | | | [place] [address] | + + + | Home Phone [...] [place] | | | | | [address] | | + + + + + Care Team Providers + +------+ + | Care Respiratory Care Assistant Name | Role | Phone [...] + + | 07/08/ | Telephone | [facility] | Frandy Teresa, | Other (post op call | | 2013 | | NEUROSURGERY [address] | DO [address] | ) | | | | [address] | [address] [place], [place] | | | | | [place], [place] | [address] | | | | | [address] | | | | | | [phone] | | | +--------+ + + + [...] | | | | | [place] | | | | | | [address] | | | | | | | | +--------+---------+ + + + documented as of this encounter Visit Diagnoses Not on filedocumented in this encounter"
--- OUTSIDE RECORDS SUMMARY | ~2019-09-18 | XMS | Encounter Summary ---
Demographics + + + | Address | [address] | | | [place] [address] | + + + | Home Phone [...] [place] | | | | | [address] | | + + + + + Care Team Providers + +------+ + | Care Ripsaw Matcher Name | Role | Phone | + [...] [place] | | | | | | [address] | | | | | | [phone] | | | +--------+ + + + [...] [place] | | | | | | [address] | | | | | | | | +--------+---------+ + + + documented as of this encounter Visit Diagnoses Not on filedocumented in this encounter"
--- OUTSIDE RECORDS SUMMARY | ~2019-09-18 | XMS | Encounter Summary ---
Demographics + + + | Address | [address] | | | [place] [address] | + + + | Home Phone [...] [place], [place] | | | | | [address] | | + + + + + Care Team Providers + +------+ + | Care Recreation Coordinator Name | Role | Phone | + +------+ + PCP | Unavailable | + +------+ + Encounter Details +--------+ + + + + | Date | Type | Department | Care Team | Description | +--------+ + + + + | 07/17/ | Hospital | [facility] | | | | 1997 | Encounter | MED CTR EMERGENCY | | | | | | [address] | | | | | | [place] | | | | | | [address] | | | | | | [phone] | | | +--------+ + + + [...] | | | | | [place] | | | | | | [address] | | | | | | | | +--------+---------+ + + + documented as of this encounter Visit Diagnoses Not on filedocumented in this encounter"
--- OUTSIDE RECORDS SUMMARY | ~2019-09-18 | XMS | Encounter Summary ---
Demographics + + + | Address | [address] | | | [place] [address] | + + + | Home Phone [...] [place] | | | | | [address] | | + + + + + Care Team Providers + +------+ + | Care Pulling Unit Floorhand Name | Role | Phone | + [...] | | | spondylolist | | [address] | | | | | hesis | | [place], | | | | | Spinal | | [place] [address] | | | | | stenosis, | | Phone: | | | | | lumbar | | [phone] | | | | | region, | | Fax: | | | | | without | | [phone] | | | | | neurogenic | [...] [facility] | Frandy Teresa, | Degenerative disc | | 2013 - | Encounter | MED CTR SURGICAL | DO [address] | disease, lumbar | | | | [address] | [place] [address] [place] | (Primary Dx); | | 07/05/ | | [place] [address] | [id number] | Diabetes mellitus | | 2013 | | [phone] | | ([facility]); Disturbance | | | | | | [...] be different fro m the original. [facility] DISCHARGE SUMMARY PATIENT NAME: Cindy [...] Stable for discharge to SNF. DISPOSITION: SNF ([facility]) DISCHARGE MEDICATIONS Medications prior to admission that [...] Take 15 mg by mouth nightl y. [place]-3 Fatty Acids (FISH OIL CONCENTRATE) 1000 MG [...] prophylaxis -DC plan: SNF versus home with [facility] any time. Maria T Storm RN - 07/04/2014 6:56 PM PDTFoley cath dc'd and MARI drain dc'd no problems. Chris Lynn PA-C - 07/04/2014 7:43 AM PDT [facility] PROGRESS NOTE Pt. Name/Age/: Cindy Arndt 58 y.o. 1955 Med. Record Number: [id number] Date of admission: 07/02/2014 Subjective: The patient [...] home medications. D/C plan: Home tomorrow with [facility]. D/c mari drain and riley cath today. D/c evs attendant. Patient Active Problem List Diagnosis LUMBAR DISC [...] by: Chris Nicole, 07/04/2014 7:45 [facility] Chris Lynn PA-C - 07/03/2014 7:13 AM PDT . [facility] PROGRESS NOTE Pt. Name/Age/: Cindy Arndt 58 y.o. 1955 Med. Record Number: [id number] Date of admission: 07/02/2014 Subjective: The patient [...] Depression Migraine Schizophrenia Electronically signed by: Chris Nicloe, 07/03/2014 7:13 [facility] Ton Menjivar, KRIS - 07/03/2014 6:50 [...] [place] | | | | | | [address] | | | | | | | [...] + | [facility] | [address] | [place], [place] | [phone] | | [facility] | | [address] | | | - LABORATORY | | | | + + + + + | [facility] | [address] | [place], [place] | | | [facility] | | [address] | | | - LABORATORY | | [...] + | [facility] | [address] | [place] | [phone] | | [facility] | | [address] | | | - LABORATORY | | | | + + + + + | [facility] | [address] | [place] | | | [facility] | | [address] | | | - LABORATORY | | [...] + | [facility] | [address] | [place] | [phone] | | [facility] | | [address] | | | - LABORATORY | | | | + + + + + | [facility] | [address] | [place] | | | [facility] | | [address] | | | - LABORATORY | | [...] + | [facility] | [address] | [place], [place] | [phone] | | [facility] | | [address] | | | - LABORATORY | | | | + + + + + | [facility] | [address] | [place], [place] | | | [facility] | | [address] | | | - LABORATORY | | [...] + | [facility] | [address] | [place] | [phone] | | [facility] | | [address] | | | - LABORATORY | | | | + + + + + | [facility] | [address] | [place] | | | [facility] | | [address] | | | - LABORATORY | | [...] + | [facility] | [address] | [place] | [phone] | | [facility] | | [address] | | | - LABORATORY | | | | + + + + + | [facility] | [address] | [place] | | | [facility] | | [address] | | | - LABORATORY | | [...] [address] | [place] | [phone] | | [facility] | | [address] | | | - LABORATORY | | | | + + + + + | [facility] | [address] | [place] | | | [facility] | | [address] | | | - LABORATORY | | [...] + | [facility] | [address] | [place], [place] | [phone] | | [facility] | | [address] | | | - LABORATORY | | | | + + + + + | [facility] | [address] | [place], [place] | | | [facility] | | [address] | | | - LABORATORY | | [...] [address] | [place] | [phone] | | [facility] | | [address] | | | - LABORATORY | | | | + + + + + | [facility] | [address] | [place], [place] | | | [facility] | | [address] | | | - LABORATORY | | [...] | of hardware for posterior fusion from [id number] S1 with interbody hardware at L5-S1. The [...] + | MISCELLANEOUS LAB | | | [phone] | + +---------+ + + | MISCELANIOUS LAB | | | [phone] | + +---------+ + + POC Glucose [...] + | [facility] | [address] | [place], [place] | [phone] | | [facility] | | [address] | | | - LABORATORY | | | | + + + + + | [facility] | [address] | [place], [place] | | | [facility] | | [address] | | | - LABORATORY | | [...] + | [facility] | [address] | [place] | [phone] | | [facility] | | [address] | | | - LABORATORY | | | | + + + + + | [facility] | [address] | [place] | | | [facility] | | [address] | | | - LABORATORY | | [...] + | [facility] | [address] | [place] | [phone] | | [facility] | | [address] | | | - LABORATORY | | | | + + + + + | [facility] | [address] | [place] | | | [facility] | | [address] | | | - LABORATORY | | [...] + | [facility] | [address] | [place], [place] | [phone] | | [facility] | | [address] | | | - LABORATORY | | | | + + + + + | [facility] | [address] | [place] | | | [facility] | | [address] | | | - LABORATORY | | [...] + | [facility] | [address] | [place] | [phone] | | [facility] | | [address] | | | - LABORATORY | | | | + + + + + | [facility] | [address] | [place] | | | [facility] | | [address] | | | - LABORATORY | | [...] | | [facility] | | [address] | | | - BLOOD BANK | [...] + +---------+ +---+---+---+ | morphine 5 mg/mL CHASSIS MECHANIC syringe | New Bag | 07/02/20 | [...] | | | | Dose(mg): 0, Starting CHASSIS MECHANIC | | | | | | | Dose(mg): 1, Incremental Increase | | | | | | | CHASSIS MECHANIC Dose(mg): 0.5, Maximum CHASSIS MECHANIC | | | | | | | [...]
--- OUTSIDE RECORDS SUMMARY | ~2019-09-18 | XMS | Encounter Summary ---
Demographics + + + | Address | [address] | | | [place] [address] | + + + | Home Phone [...] [place], [place] | | | | | [address] | | + + + + + Care Team Providers + +------+ + | Care Platform Beater Name | Role | Phone | + +------+ + PCP | Unavailable | + +------+ + Encounter Details +--------+ + + + + | Date | Type | Department | Care Team | Description | +--------+ + + + + | 04/01/ | Hospital | [facility] | | | | 1998 | Encounter | MED CTR XRAY [address] | | | | | | [address] | | | | | | [place] [address] | | | | | | [phone] | | | +--------+ + + + [...] | | | | | [place] | | | | | | [address] | | | | | | | | +--------+---------+ + + + documented as of this encounter Visit Diagnoses Not on filedocumented in this encounter"
--- OUTSIDE RECORDS SUMMARY | ~2019-09-18 | XMS | Clinical Summary ---
Demographics + + + | Address | [address] | | | [place] [address] | + + + | Home Phone [...] [place] | | | | | [address] | | + + + + + Care Team Providers + +------+ + | Care Thermodynamics Engineer Name | Role | Phone | [...] | | Activ | | (VITAMIN D-3) 62016 | mouth Once a week. | | [...] | | | | | ([facility]) | | | | [...] | | | | e | | (Set.fm VERIO FLEX | | | | | [...] | | 2018 | | | D, Sieve Maker | to take monitor | | | | | | off. ) | +--------+ + + + + | 08/28/ | Telephone | Cardiology | Ashley Chávez | Other (Patient has | | 2018 | | | D, Sieve Maker | questions about | | | | [...] | | 2018 | | | D, Sieve Maker | tell patient what Dr | | | | | | Nicholas said. ) | +--------+ + + + + | 08/16/ | Documentati | Cardiology | Katharine Moncada, | Other (urgent | 2018 | on | | Technologist | report) | +--------+ + + + + | 08/16/ | Documentati | Cardiology | Katharine Mocnada, | Other (urgent | 2018 | on [...] | | 2018 | | | D, Sieve Maker | anxious about urgent | | | [...] | | 2018 | | | D, Sieve Maker | about coverage. ) | +--------+ + + + + | 07/30/ | Telephone | Cardiology | Ashley Chávez | Other (Patient | | 2018 | | | D, Sieve Maker | concerns ) | +--------+ + + + + | 07/24/ | Telephone | Cardiology | Ashley Chávez | Other (Patient is | | 2018 | | | D, Sieve Maker | worried about paying | | | [...] | | 2018 | | | D, Sieve Maker | called to cancel her | | [...] | | | | | [place], [place] | | | | | | [address] | | | | | | | [...] | [employer] - | | 04/02/ | [id number] | | 5ccImplanted: Qty: 1 on | | Spine | MEDT | | 2019 | | | 07/02/2014 by Frandy Teresa | | Lumbar | | | | /[id number] | | A, DO at [facility] | | | | | | 6-020 | | [facility] | | | | | | / | + +------+--------+ +--------+--------+--------+ | Graft Infuse Bone Kit Xxs - | | N/A: | SOFAMOR | | 01/21/ | [id number] | | [id number]: Qty: 1 on | | Spine | DANEK - DIV | | 2015 | 0 / | | 07/02/2014 by Frandy Teresa | | Lumbar | [employer] | | | /[id number] | | A, DO at [facility] | | | - SFDK | | | 06AAH | | [facility] | | | | | | | + +------+--------+ +--------+--------+--------+ | Imp Spn Spcr Cpstn 8x26mm - | | N/A: | SOFAMOR | | 01/11/ | [id number] | | [id number]: Qty: 1 on | | Spine | DANEK - DIV | | 2021 | 6 / | | 07/02/2014 by Frandy Teresa | | Lumbar | [employer] | | | /[id number] | | DO Ronak at [facility] | | | - SFDK | | | 928 | | [facility] | | | | | | | + +------+--------+ +--------+--------+--------+ | Set Scrw Ns G5 Brk Off Ti | | N/A: | SOFAMOR | | | [id number] | | 4.75 - [id number]: | | Spine | DANEK - DIV | | | 0 / / | | Qty: 4 on 07/02/2014 by | | Lumbar | [employer] | | | | | Frandy Teresa DO at [facility] | | | - SFDK | | | | | [facility] | | | | | | | | CENTER | | | | | | | + +------+--------+ +--------+--------+--------+ | RodImplanted: Qty: 1 on | | N/A: | | | | [id number] | | 07/02/2014 by Frandy Teresa | | Spine | | | | 540 / | | A, DO at [facility] | | Lumbar | | | | / | | [facility] | | | | | | | + +------+--------+ +--------+--------+--------+ | RodImplanted: Qty: 1 on | | N/A: | MEDTROL - | | | [id number] | | 07/02/2014 by Frandy Teresa | | Spine | MDTR | | | 545 / | | A, DO at [facility] | | Lumbar | | | | / | | [facility] | | | | | | | + +------+--------+ +--------+--------+--------+ | Screw 7.5x50mm Sextant - | | N/A: | [employer] - | | | [id number] | | [id number]: Qty: 1 on | | Spine | MEDT | | | [id number] | | 07/02/2014 by Frandy Teresa | | Lumbar | | | | / / | | A, DO at [facility] | | | | | | | | [facility] | | | | | | | + +------+--------+ +--------+--------+--------+ | Cannulated ScrewImplanted: | | N/A: | MEDTROL - | | | [id number] | | Qty: 1 on 07/02/2014 by | | Spine | MDTR | | | [id number] | | Frandy Teresa DO at [facility] | | Lumbar | | | | / / | | [facility] | | | | | | | | CENTER | | | | | | | + +------+--------+ +--------+--------+--------+ | Cannulated ScrewImplanted: | | N/A: | [employer] - | | | [id number] | | Qty: 1 on 07/02/2014 by | | Spine | MEDT | | | [id number] | | Frandy Teresa DO at [facility] | | Lumbar | | | | / / | | [facility] | | | | | | [...] +--------+ +---------+--------+ | MEDICARE | MEDICA | [id number] | 02/22/20 | [phone] | | Medica | | | RE | | 09-Pre | 5 | | re | | | PART A | | sent | | | | | | AND B | | | | | | + +--------+ +--------+ +---------+--------+ | MEDICARE | MEDICA | [id number] | 02/22/20 | [phone] | | Medica [...] | Self | [birth year] | [address] | | | al/Fam | | 1955 | [phone] | [address] [place], [place] | | | devonte | | | [address] (Home) | [phone] | + +--------+ +--------+ + + | Cindy Arndt L | Person | Self | [birth year] | [address] | | | al/Fam | | 1955 | [phone] | [address] [place], [place] | | | devonte | | | [address] (Home) | [phone] | + +--------+ +--------+ + + Advance Directives + + + + + | Type | Date Recorded | Patient | Explanation | | | | Materials Scheduler | | + + + + + | Power of | | | | | [employer] | | | | + + + [...]
--- OUTSIDE RECORDS SUMMARY | ~2019-09-18 | XMS | Encounter Summary ---
Demographics + + + | Address | [address] | | | [place] [address] | + + + | Home Phone [...] [place] | | | | | [address] | | + + + + + Care Team Providers + +------+ + | Care Consumer Advocate Name | Role | Phone | [...] | Frandy Simons DO | [address] | | | | | of skin | [address] | [place], | | | | | sensation | [address] | [place] | | | | | Arthrodesis | [place], [place] | [address] | | | | | status Left | [address] | Phone: | | | | | leg | Phone: | [phone] | | | | | weakness | [phone] | Fax: | | | | | Procedures | Fax: | [phone] | | | | | MRI Lumbar | [phone] | | | | | | Spine [...] [address] | [address] [place], [place] | | | | | [place], [place] | [address] | | | | | [address] | | | | | | [phone] | | | +--------+ + + + [...] [place] | | | | | | [address] | | | | | | | [...] the round structure with high T1 and H4vaiotv in the right L3 vertebral | | [...] + | MISCELLANEOUS LAB | | | [phone] | + +---------+ + + | MISCELANIOUS LAB | | | [phone] | + +---------+ + + documented in [...]
--- OUTSIDE RECORDS SUMMARY | ~2019-09-18 | XMS | Encounter Summary ---
Demographics + + + | Address | [address] | | | [place] [address] | + + + | Home Phone [...] [place] | | | | | [address] | | + + + + + Care Team Providers + +------+ + | Care Welt Sole Layer Name | Role | Phone | [...] + + | 08/16/ | Documentati | [facility] | Katharine Moncada, | Other (urgent | | 2019 | on | CARDIOLOGY [place] | Technologist | report) | | | | [address] | | | | | | [place] | | | | | | [address] | | | | | | [phone] | | | +--------+ + + + [...] [place] | | | | | | [address] | | | | | | | | +--------+---------+ + + + documented as of this encounter Visit Diagnoses Not on filedocumented in this encounter"
--- OUTSIDE RECORDS SUMMARY | ~2019-09-18 | XMS | Encounter Summary ---
Demographics + + + | Address | [address] | | | [place] [address] | + + + | Home Phone [...] [place] | | | | | [address] | | + + + + + Care Team Providers + +------+ + | Care Business Planning Manager Name | Role | Phone | + +------+ + PCP | Unavailable | + +------+ + Encounter Details +--------+ + + + + | Date | Type | Department | Care Team | Description | +--------+ + + + + | 04/27/ | Hospital | [facility] | Sage Garza MD | | | 2001 | Encounter | HOSPITAL EMERGENCY | | | | | | CENTER [address] | | [address] [place], [place] | | | | | | [address] | | | | | | [phone] | | | +--------+ + + + [...] [place] | | | | | | [address] | | | | | | | | +--------+---------+ + + + documented as of this encounter Visit Diagnoses Not on filedocumented in this encounter"
--- OUTSIDE RECORDS SUMMARY | ~2019-09-18 | XMS | Encounter Summary ---
Demographics + + + | Address | [address] | | | [place] [address] | + + + | Home Phone [...] [place] | | | | | [address] | | + + + + + Care Team Providers + +------+ + | Care Street Inspector Name | Role | Phone | [...] + | 06/20/ | Telephone | [facility] | Frandy Teresa, | Other (surgery | | 2013 | | NEUROSURGERY [address] | DO [address] | reminder ) | | | | [address] | [address] [place], [place] | | | | | [place], [place] | [address] | | | | | [address] | | | | | | [phone] | | | +--------+ + + + [...] | | | | | [place] | | | | | | [address] | | | | | | | | +--------+---------+ + + + documented as of this encounter Visit Diagnoses Not on filedocumented in this encounter"
--- OUTSIDE RECORDS SUMMARY | ~2019-09-18 | XMS | Encounter Summary ---
Demographics + + + | Address | [address] | | | [place] [address] | + + + | Home Phone [...] [place] | | | | | [address] | | + + + + + Care Team Providers + +------+ + | Care Aquatic Director Name | Role | Phone | [...] | 02/21/ | Refill | [facility] | Deon Gonzales | Medication Refill | | 2012 | | SLEEP DISORDER [address] | MD [address]ure[address] | | | | | [address] [place] | [address] [place] | | | | | [place] [address] | [place] [address] | | | | | [phone] | [phone] | | | | | | | [...] [place] | | | | | | [address] | | | | | | | | +--------+---------+ + + + documented as of this encounter Visit Diagnoses + + | Diagnosis | + + | Obstructive sleep apnea (adult) (pediatric) - Primary | + + documented in this encounter"
--- OUTSIDE RECORDS SUMMARY | ~2019-09-18 | XMS | Encounter Summary ---
Demographics + + + | Address | [address] | | | [place] [address] | + + + | Home Phone [...] [place] | | | | | [address] | | + + + + + Care Team Providers + +------+ + | Care Postdoctoral Scientist Name | Role | Phone | [...] + + | 08/28/ | Telephone | [facility] | Ashley Chávez | Other (Patient has | | 2019 | | CARDIOLOGY [place] Abad, Regional Facilities Manager | questions about | | | | [address] | | monitor. ) | | | | PROCIOUS [place] | | | | | | [address] | | | | | | [phone] | | | +--------+ + + + [...] [place] | | | | | | [address] | | | | | | | | +--------+---------+ + + + documented as of this encounter Visit Diagnoses Not on filedocumented in this encounter"
--- OUTSIDE RECORDS SUMMARY | ~2019-09-18 | XMS | Encounter Summary ---
Demographics + + + | Address | [address] | | | [place] [address] | + + + | Home Phone [...] [place] | | | | | [address] | | + + + + + Care Team Providers + +------+ + | Care Crushing Mill Operator Name | Role | Phone [...] [place] | | | | | | [address] | | | | | | [phone] | | | +--------+ + + + [...] [place] | | | | | | [address] | | | | | | | | +--------+---------+ + + + documented as of this encounter Visit Diagnoses Not on filedocumented in this encounter"
--- OUTSIDE RECORDS SUMMARY | ~2019-09-18 | XMS | Encounter Summary ---
Demographics + + + | Address | [address] | | | [place] [address] | + + + | Home Phone [...] [place] | | | | | [address] | | + + + + + Care Team Providers + +------+ + | Care Business Administration Professor Name | Role | Phone | [...] [place] | | | | | | [address] | | | | | | [phone] | | | +--------+ + + + [...] [place] | | | | | | [address] | | | | | | | | +--------+---------+ + + + documented as of this encounter Visit Diagnoses Not on filedocumented in this encounter"
--- OUTSIDE RECORDS SUMMARY | ~2019-09-18 | XMS | Encounter Summary ---
Demographics + + + | Address | [address] | | | [place] [address] | + + + | Home Phone [...] [place] | | | | | [address] | | + + + + + Care Team Providers + +------+ + | Care Matte Cutter Name | Role | Phone | [...] + | 03/06/ | Office | [facility] | Deon Gonzales | ROGERS (obstructive | | 2012 | Visit | SLEEP DISORDER [address] | MD [address] | sleep apnea) | | | | [address] [place] | [address] [place] | (Primary Dx); | | | | [place] [address] | [place] [address] | Sleepiness | | | | [phone] | [phone] | | | | | | | [...] differen t from the original. 03/06/13 1000 [place] Sleepiness Scale Sitting and reading 3 Watching [...] by mouth Daily., Disp: , Rfl: ; [place]-3 Fatty Acids (FISH OIL CONCENTRATE) 1000 MG [...] | | | | [place] | | | | | | [id number] | | | | | | | | +--------+---------+ + + + documented as of this encounter Visit Diagnoses + + | Diagnosis | + + | ROGERS (obstructive sleep apnea) - Primary Obstructive sleep apnea (adult) (pediatric) | + + | Sleepiness Other alteration of consciousness | + + documented in this encounter"
--- OUTSIDE RECORDS SUMMARY | ~2019-09-18 | XMS | Clinical Summary ---
Demographics + + + | Address | [address] | | | [place] [address] | + + + | Home Phone [...] [place] | | | | | [address] | | + + + + + Care Team Providers + +------+ + | Care Grant Manager Name | Role | Phone | + +------+ + PCP | Unavailable | + +------+ + Source Comments EDWARD is fully live on both [facility] and [facility] Allergies Not on File Medications [...] | [employer] | xxxxxxxxxx | 02/22/20 | [phone] | [address] | [employer] | | | RE A & | | 15-Pre | 1 | [address] | re | | | B | | sent | | [place] | | | | | | | | [address] | | + +--------+ +--------+ + +--------+ + +--------+ +--------+ + + | Guarantor Name | Accoun | Relation to | Date | Phone | Billing Address | | | t Type | Patient | of | | | | | | | | | | + +--------+ +--------+ + + | CINDY ARNDT | Person | Self | [birth year] | [address] | | | al/Fam | | 1955 | [phone] | [address] [place] | | | [place] | | | 5 (Home) | [address] | + +--------+ +--------+ + +"
--- OUTSIDE RECORDS SUMMARY | ~2019-09-18 | XMS | Encounter Summary ---
Demographics + + + | Address | [address] | | | [place] [address] | + + + | Home Phone [...] [place] | | | | | [address] | | + + + + + Care Team Providers + +------+ + | Care Colon Therapist Name | Role | Phone | [...] + + | 04/30/ | Office | [facility] | Russell Alfaro PA | ROGERS on CPAP (Primary | | 2015 | Visit | SLEEP DISORDER [address] | [address] | Dx) | | | | [address] [place] | [place] | | | | | [place] [address] | [address] | | | | | [phone] | | | +--------+---------+ + + + [...] Insomnia Severity Index Insomnia Severity Index 13 [place] Sleepiness Scale Sitting and reading 3 Watching [...] nasal obtained from: [facility] [place] pressure: 11-20 cm Median: 12.1 cm 95%: [...] appro priate paperwork. Thirty minutes were spent [id number], with the majority of time spent i [...] | | | | | [place], [place] | | | | | | [address] | | | | | | | | +--------+---------+ + + + documented as of this encounter Visit Diagnoses + + | Diagnosis | + + | ROGERS on CPAP - Primary Obstructive sleep apnea (adult) (pediatric) | + + documented in this encounter"
--- OUTSIDE RECORDS SUMMARY | ~2019-09-18 | XMS | Encounter Summary ---
Demographics + + + | Address | [address] | | | [place] [address] | + + + | Home Phone [...] [place] | | | | | [address] | | + + + + + Care Team Providers + +------+ + | Care Cloth Classer Name | Role | Phone | + [...] + + | 07/19/ | Office | [facility] | Desiree Peterson DO | Syncope, unspecified | | 2019 | Visit | CARDIOLOGY [place] | [address] | syncope type | | | | [address] | [place], [place] | (Primary Dx); | | | | [address] [place] [address] | [address] | Essential | | | | [place] | | hypertension; | | | | [address] | | Irregular heartbeat | | | | [phone] | | | +--------+---------+ + + + [...] Peterson DO - 07/19/2019 10:40 AM PDT [facility] Cardiology Cardiology Follow Up [...] by mouth daily. Blood Glucose Monitoring Suppl ([employer] VERIO FLEX SYSTEM) w/Device KIT by Does not ap ply route. budesonide-formoterol (SYMBICORT) 160-4.5 MCG/ACT inhaler Inhale 2 puffs into the lungs 2 (two) times daily. Calcium Carbonate Antacid 1000 MG tablet Take 1,000 mg by mouth 3 (three) times daily. Cholecalciferol (VITAMIN D3) 43937 units CAPS Take by mouth once a [...] [place] | | | | | | [address] | | | | | | | [...]
--- OUTSIDE RECORDS SUMMARY | ~2019-09-18 | XMS | Encounter Summary ---
Demographics + + + | Address | [address] | | | [place] [address] | + + + | Home Phone [...] [place], [place] | | | | | [address] | | + + + + + Care Team Providers + +------+ + | Care Pipelaying Fitter Name | Role | Phone | + +------+ + PCP | Unavailable | + +------+ + Encounter Details +--------+ + + + + | Date | Type | Department | Care Team | Description | +--------+ + + + + | 02/02/ | Hospital | [facility] | Serafin Bautista | | | 2012 | Encounter | MED CTR XRAY [address] | T, MD [address] | | | | | [place] | ST [place], [place] | | | | | [place] [address] | [address] | | | | | [phone] | | | +--------+ + + + [...] [place] | | | | | | [address] | | | | | | | [...] Performed At | + + + | [facility] Diagnostic Imaging Department | [facility] | | [address] | [facility] | | PROCEDURE: EPIDURAL STEROID | [...] Transcribed Date/Time: | | | 02/03/2012 18:45 Intellectual Property Manager: <Electronically Signed | | | by Serafin Bautista MD> 02/14/12 0916 | | + + + + + | Procedure Note | + + | Juan, Rad Conversion - 11/30/2013 5:06 PM [facility] | | Diagnostic Imaging Department | | [address] | | | | | | [...] | Transcribed Date/Time: 02/03/2012 18:45 | | Intellectual Property Manager: LaMAHIN | | <Electronically Signed by Serafin [...]
--- OUTSIDE RECORDS SUMMARY | ~2019-09-18 | XMS | Encounter Summary ---
Demographics + + + | Address | [address] | | | [place] [address] | + + + | Home Phone [...] [place], [place] | | | | | [address] | | + + + + + Care Team Providers + +------+ + | Care Dry Cleaning Supervisor Name | Role | Phone | + +------+ + PCP | Unavailable | + +------+ + Encounter Details +--------+ + + + + | Date | Type | Department | Care Team | Description | +--------+ + + + + | 12/24/ | Hospital | [facility] | | | | 1998 | Encounter | MED CTR XRAY [address] | | | | | | [address] [place] | | | | | | [place] [address] | | | | | | [phone] | | | +--------+ + + + [...] | | | | | [place] | | | | | | [address] | | | | | | | | +--------+---------+ + + + documented as of this encounter Visit Diagnoses Not on filedocumented in this encounter"
--- OUTSIDE RECORDS SUMMARY | ~2019-09-18 | XMS | Encounter Summary ---
Demographics + + + | Address | [address] | | | [place] [address] | + + + | Home Phone [...] [place] | | | | | [address] | | + + + + + Care Team Providers + +------+ + | Care Factorer Name | Role | Phone | + +------+ + | Natalee Andersen NP | PCP | | + +------+ + Encounter Details +--------+ + + + + | Date | Type | Department | Care Team | Description | +--------+ + + + + | 06/25/ | Hospital | [facility] | Frandy Teresa, | Acquired | | 2014 | Encounter | MED CTR XRAY [address] | DO [address] | spondylolisthesis | | | | [place] | [address] [place], [place] | | | | | [place] [address] | [address] | | | | | [phone] | | | +--------+ + + + [...] + + + +---------+ + + | Sikes-3 Fatty | Take 1,000 mg by | [...] [place] | | | | | | [address] | | | | | | | | +--------+---------+ + + + documented as of this encounter Visit Diagnoses + + | Diagnosis | + + | Acquired spondylolisthesis | + + documented in this encounter"
--- OUTSIDE RECORDS SUMMARY | ~2019-09-18 | XMS | Encounter Summary ---
Demographics + + + | Address | [address] | | | [place] [address] | + + + | Home Phone [...] [place], [place] | | | | | [address] | | + + + + + Care Team Providers + +------+ + | Care Emissions Repair Technician Name | Role | Phone | + +------+ + PCP | Unavailable | + +------+ + Encounter Details +--------+ + + + + | Date | Type | Department | Care Team | Description | +--------+ + + + + | 06/07/ | Hospital | [facility] | | | | 1991 - | Encounter | MED CTR GENERIC OP | | | | | | CONV DEPT [address] | | | | 10/07/ | | [place], | | | | 1991 | | [place] [address] | | | | | | [phone] | | | +--------+ + + + [...] [place] | | | | | | [address] | | | | | | | | +--------+---------+ + + + documented as of this encounter Visit Diagnoses Not on filedocumented in this encounter"
--- OUTSIDE RECORDS SUMMARY | ~2019-09-18 | XMS | Encounter Summary ---
Demographics + + + | Address | [address] | | | [place] [address] | + + + | Home Phone [...] [place] | | | | | [address] | | + + + + + Care Team Providers + +------+ + | Care Partner Name | Role | Phone | + [...] | 03/10/ | Refill | [facility] | Katharine Cardona PA-C | Medication Refill | | 2014 | | MEDICINE [address] | [address] [place] | | | | | Street [place] | [place] [address] | | | | | [place] [address] | [phone] | | | | | [phone] | | | +--------+--------+ + + + [...] [place] | | | | | | [address] | | | | | | | | +--------+---------+ + + + documented as of this encounter Visit Diagnoses + + | Diagnosis | + + | Essential hypertension - Primary Unspecified essential hypertension | + + documented in this encounter"
--- OUTSIDE RECORDS SUMMARY | ~2019-09-18 | XMS | Encounter Summary ---
Demographics + + + | Address | [address] | | | [place] [address] | + + + | Home Phone [...] [place] | | | | | [address] | | + + + + + Care Team Providers + +------+ + | Care French Folding Machine Operator Name | Role | Phone [...] | | | | | | [place] [address] | | | | | | [phone] | | | | | | | [...] in | | | | | | [place] with a | | | | | [...] [facility] | | | | | [facility] | | | | | | Laboratory, [place], | | | | | | [place], [...] by | | | | | | ibzopsefSjt-Ash-D: | | | | | | Increased [...] istryMHC-1: | | | | | | [id number] stain | | | | | | [...] + + + + | [facility] | [address] | [place] [address] | | | PATHOLOGY | [address] | | | + + + + + documented in this encounter Visit Diagnoses Not on filedocumented in this encounter
--- OUTSIDE RECORDS SUMMARY | ~2019-09-18 | XMS | Encounter Summary ---
Demographics + + + | Address | [address] | | | [place] [address] | + + + | Home Phone [...] [place] | | | | | [address] | | + + + + + Care Team Providers + +------+ + | Care Freelance Interpreter/Translator Name | Role | Phone | + +------+ + | Natalee Andersen NP | PCP | | + +------+ + Encounter Details +--------+ + + + + | Date | Type | Department | Care Team | Description | +--------+ + + + + | 09/27/ | Hospital | [facility] | Frandy Teresa, | Lumbar spondylosis; | | 2013 | Encounter | MED CTR XRAY [address] | DO [address] | S/P lumbar fusion | | | | [place] | [address] [place], [place] | | | | | [place] [address] | [address] | | | | | [phone] | | | +--------+ + + + [...] + + + +---------+ + + | Salem-3 Fatty | Take 1,000 mg [...] [place] | | | | | | [address] | | | | | | | [...] + | MISCELLANEOUS LAB | | | [phone] | + +---------+ + + | MISCELANIOUS LAB | | | [phone] | + +---------+ + + documented in this encounter Visit Diagnoses + + | Diagnosis | + + | Lumbar spondylosis Lumbosacral spondylosis without myelopathy | + + | S/P lumbar fusion Arthrodesis status | + + documented in this encounter"
--- OUTSIDE RECORDS SUMMARY | ~2019-09-18 | XMS | Encounter Summary ---
Demographics + + + | Address | [address] | | | [place] [address] | + + + | Home Phone [...] [place] | | | | | [address] | | + + + + + Care Team Providers + +------+ + | Care Diabetes Nurse Name | Role | Phone | + +------+ + | Adriano Patrick MD | PCP | | + +------+ + Encounter Details +--------+ + + + + | Date | Type | Department | Care Team | Description | +--------+ + + + + | 06/10/ | Abstract | [facility] | Thierry Fry | | | 2014 | | MEDICINE [address] | MD Lisa [address] | | | | | [address] [place] | [address] | | | | | [place] [address] | [address] | | | | | [phone] | | | +--------+ + + + [...] | | | | | [place] | | | | | | [address] | | | | | | | [...]
--- OUTSIDE RECORDS SUMMARY | ~2019-09-18 | XMS | Encounter Summary ---
Demographics + + + | Address | [address] | | | [place] [address] | + + + | Home Phone [...] [place] | | | | | [address] | | + + + + + Care Team Providers + +------+ + | Care Stores Laborer Name | Role | Phone | [...] [address] | [address] [place], [place] | | | | | [place], [place] | [id number] | | | | | [address] | | | | | | [phone] | | | +--------+ + + + [...] | | | | [place] | | | | | | [address] | | | | | | | | +--------+---------+ + + + documented as of this encounter Visit Diagnoses Not on filedocumented in this encounter"
--- OUTSIDE RECORDS SUMMARY | ~2019-09-18 | XMS | Encounter Summary ---
Demographics + + + | Address | [address] | | | [place] [address] | + + + | Home Phone [...] [place] | | | | | [address] | | + + + + + Care Team Providers + +------+ + | Care Publications Writer Name | Role | Phone | [...] | Services | ogy | Epigastric | [facility], | Tyrese Shelley MD | | | Required | | abdominal | [place], | [address], | | | | | pain GERD | COMIC ARTIST [address] | [address] | | | | | (gastroesoph | [address], [address] | [place], | | | | | ageal reflux | [address] [place] | [place] [address] | | | | | disease) | [place], [place] | Phone: | | | | | Fatty liver | [address] | [phone] | | | | | DM | Phone: | Fax: | | | | | (diabetes | [phone] | [phone] | | | | | mellitus) | Fax: | | | | | | (HCC) | [phone] | | +--------+ + + + + + Reason for Visit + + + | Reason | Comments | + + + | Gastroesophageal | epigastric pain | | Reflux | | + + + Encounter Details +--------+---------+ + + + | Date | Type | Department | Care Team | Description | +--------+---------+ + + + | 03/06/ | Office | [facility] | [facility], | Epigastric abdominal | | 2012 | Visit | GASTROENTEROLOGY | FORTUNATO Thomas [address] | pain (Primary Dx); | | | | [address] | [place], [address] | GERD | | | | [address] [place], [place] | [place], [place] | (gastroesophageal | | | | [address] | [address] | reflux disease); | | | | [phone] | | Fatty liver; DM | | [...] years ago by Dr. Saravanan Tsai, in [facility]. Colonoscopy was done 05/[address] Hamlin in [facility]. Allergies Allergen Reactions Demerol Duloxetine [...] | | | | | [place], [place] | | | | | | [phone] | | | | | | | [...]
--- OUTSIDE RECORDS SUMMARY | ~2019-09-18 | XMS | Encounter Summary ---
Demographics + + + | Address | [address] | | | [place] [address] | + + + | Home Phone [...] [place], [place] | | | | | [address] | | + + + + + Care Team Providers + +------+ + | Care Care Companion Name | Role | Phone | + +------+ + PCP | Unavailable | + +------+ + Encounter Details +--------+ + + + + | Date | Type | Department | Care Team | Description | +--------+ + + + + | 04/16/ | [facility] | [facility] | Deon Gonzales | | | 2005 | Encounter | MED CTR SLEEP | MD [address]ure[address] | | | | | [place] [address] | [place] | | | | | [place], [place] | [place] [address] | | | | | [address] | [phone] | | | | | [phone] | | | +--------+ + + + [...] [place] | | | | | | [address] | | | | | | | | +--------+---------+ + + + documented as of this encounter Visit Diagnoses Not on filedocumented in this encounter"
--- OUTSIDE RECORDS SUMMARY | ~2019-09-18 | XMS | Encounter Summary ---
Demographics + + + | Address | [address] | | | [place] [address] | + + + | Home Phone [...] [place] | | | | | [address] | | + + + + + Care Team Providers + +------+ + | Care Practice Specialist Name | Role | Phone | [...] Services | ogy | Epigastric | [facility], | Tyrese Shelley MD | | | Required | | abdominal | [place], | [address], | | | | | pain GERD | DISPOSAL WORKER [address] | [address] | | | | | (gastroesoph | [place], [place] | [place], | | | | | ageal reflux | [address] [place] | [place] [address] | | | | | disease) | [place], [place] | Phone: | | | | | Fatty liver | [address] | [phone] | | | | | DM | Phone: | Fax: | | | | | (diabetes | [phone] | [phone] | | | | | mellitus) | Fax: | | | | | | (HCC) | [phone] | | +--------+ + + + + [...] | Office | [facility] | [facility], | Epigastric abdominal | | 2012 | Visit | GASTROENTEROLOGY | FORTUNATO Thomas [address] | pain (Primary Dx); | | | | [address] [place] | [place], [address] | GERD | | | | [address] [place], [place] | [place], [place] | (gastroesophageal | | | | [address] | [address] | reflux disease); | | | | [phone] | | Fatty liver; DM | | [...] ago by Dr. Saravanan Tsai, in [facility]. Colonoscopy was done 05/[address] Hamlin in [facility]. Allergies Allergen Reactions Demerol Duloxetine Erythromycin Fluoxetine [...] | | | | | [place], [place] | | | | | | [phone] | | | | | | | [...]
--- OUTSIDE RECORDS SUMMARY | ~2019-09-18 | XMS | Encounter Summary ---
Demographics + + + | Address | [address] | | | [place] [address] | + + + | Home Phone [...] [place], [place] | | | | | [address] | | + + + + + Care Team Providers + +------+ + | Care Paper Conservator Name | Role | Phone | + +------+ + PCP | Unavailable | + +------+ + Encounter Details +--------+ + + + + | Date | Type | Department | Care Team | Description | +--------+ + + + + | 05/23/ | Hospital | [facility] | Dale, Heath E A, | | | 2012 | Encounter | MED CTR XRAY [address] | MD [address] | | | | | [place] | [place] | | | | | [place] [address] | [address] | | | | | [phone] | | | +--------+ + + + [...] + + + +---------+ + + | Hopewell-3 Fatty | Take 1,000 mg by | [...] | | | | | | [place] | | | | | | [address] | | | | | | | [...] Performed At | + + + | [facility] Diagnostic Imaging Department | [facility] | | [address] [facility] | [facility] | | LUMBAR SPINE MR WITHOUT [...] Transcribed Date/Time: | | | 05/23/2012 16:55 Spa Concierge: <Electronically Signed | | | by Adriano Anne MD> 05/23/12 7805 | | + + + + + | Procedure Note | + + | Manohar Martinez Conversion - 11/30/2013 5:47 PM [facility] | | Diagnostic Imaging Department [address] [facility] [place] | | LUMBAR SPINE [...] 16:37 | |Transcribed Date/Time: 05/23/2012 16:55 | |Spa Concierge: | |<Electronically Signed by Adriano Anne MD> [...]
--- OUTSIDE RECORDS SUMMARY | ~2019-09-18 | XMS | Encounter Summary ---
Demographics + + + | Address | [address] | | | [place] [address] | + + + | Home Phone [...] [place] | | | | | [address] | | + + + + + Care Team Providers + +------+ + | Care Stitchdowns Toe Former Name | Role | Phone | [...] + + | 01/02/ | Telephone | [facility] | Frandy eTresa, | Other (6m x-ray ) | | 2014 | | NEUROSURGERY [address] | DO [address] | | | | | [address] | [address] [place], [place] | | | | | [place], [place] | [id number] | | | | | [address] | | | | | | [phone] | | | +--------+ + + + [...] [place] | | | | | | [address] | | | | | | | | +--------+---------+ + + + documented as of this encounter Visit Diagnoses Not on filedocumented in this encounter"
--- OUTSIDE RECORDS SUMMARY | ~2019-09-18 | XMS | Encounter Summary ---
Demographics + + + | Address | [address] | | | [place] [address] | + + + | Home Phone [...] [place] | | | | | [address] | | + + + + + Care Team Providers + +------+ + | Care Metal Products Fabricator Assembler Name | Role | Phone | [...] | [address] [place] | [place], [address] | | | | | [address] [place], [place] | [place], [place] | | | | | [address] | [address] | | | | | [phone] | | | +--------+ + + + [...] | | | | | [place] | | | | | | [id number] | | | | | | | | +--------+---------+ + + + documented as of this encounter Visit Diagnoses Not on filedocumented in this encounter"
--- OUTSIDE RECORDS SUMMARY | ~2019-09-18 | XMS | Encounter Summary ---
Demographics + + + | Address | [address] | | | [place] [address] | + + + | Home Phone [...] [place] | | | | | [address] | | + + + + + Care Team Providers + +------+ + | Care Plant Controls Specialist Name | Role | Phone | [...] + + | 07/19/ | Office | [facility] | Desiree Peterson DO | Syncope, unspecified | | 2019 | Visit | CARDIOLOGY [place] | [address] | syncope type | | | | [address] | [place], [place] | (Primary Dx); | | | | [address] [place] | [address] | Essential | | | | [place] | | hypertension; | | | | [address] | | Irregular heartbeat | | | | [phone] | | | +--------+---------+ + + + [...] Peterson DO - 07/19/2019 10:40 AM PDT [facility] Cardiology Cardiology Follow Up Note [...] by mouth daily. Blood Glucose Monitoring Suppl ([employer] VERIO FLEX SYSTEM) w/Device KIT by Does not ap ply route. budesonide-formoterol (SYMBICORT) 160-4.5 MCG/ACT inhaler Inhale 2 puffs into the lungs 2 (two) times daily. Calcium Carbonate Antacid 1000 MG tablet Take 1,000 mg by mouth 3 (three) times daily. Cholecalciferol (VITAMIN D3) 58228 units CAPS Take by mouth once a [...] [place] | | | | | | [address] | | | | | | | [...]
--- OUTSIDE RECORDS SUMMARY | ~2019-09-18 | XMS | Encounter Summary ---
Demographics + + + | Address | [address] | | | [place] [address] | + + + | Home Phone [...] [place], [place] | | | | | [address] | | + + + + + Care Team Providers + +------+ + | Care Bread Wrapping Machine Feeder Name | Role | Phone | + +------+ + PCP | Unavailable | + +------+ + Encounter Details +--------+ + + + + | Date | Type | Department | Care Team | Description | +--------+ + + + + | 03/26/ | Hospital | [facility] | | | | 2001 | Encounter | MED CTR LABORATORY | | | | | | [address] | | | | | | [place] | | | | | | [address] | | | | | | [phone] | | | +--------+ + + + [...] | | | | [place] | | | | | | [address] | | | | | | | | +--------+---------+ + + + documented as of this encounter Visit Diagnoses Not on filedocumented in this encounter"
--- OUTSIDE RECORDS SUMMARY | ~2019-09-18 | XMS | Encounter Summary ---
Demographics + + + | Address | [address] | | | [place] [address] | + + + | Home Phone [...] [place], [place] | | | | | [address] | | + + + + + Care Team Providers + +------+ + | Care Architecture Manager Name | Role | Phone | [...] [place] | | | | | | [address] | | | | | | [phone] | | | +--------+ + + + [...] | | | | | [place] | | | | | | [address] | | | | | | | | +--------+---------+ + + + documented as of this encounter Visit Diagnoses Not on filedocumented in this encounter"
--- OUTSIDE RECORDS SUMMARY | ~2019-09-18 | XMS | Encounter Summary ---
Demographics + + + | Address | [address] | | | [place] [address] | + + + | Home Phone [...] [place], [place] | | | | | [address] | | + + + + + Care Team Providers + +------+ + | Care Literacy Coordinator Name | Role | Phone | + +------+ + PCP | Unavailable | + +------+ + Encounter Details +--------+ + + + + | Date | Type | Department | Care Team | Description | +--------+ + + + + | 02/24/ | Hospital | [facility] | | | | 1997 - | Encounter | MED CTR GENERIC PSY | | | | | | CONV DEPT [address] | | | | 02/26/ | | [address], | | | | 1997 | | [place] [address] | | | | | | [phone] | | | +--------+ + + + [...] [place] | | | | | | [address] | | | | | | | | +--------+---------+ + + + documented as of this encounter Visit Diagnoses Not on filedocumented in this encounter"
--- OUTSIDE RECORDS SUMMARY | ~2019-09-18 | XMS | Encounter Summary ---
Demographics + + + | Address | [address] | | | [place] [address] | + + + | Home Phone [...] | Author | [facility] | | | and [...] [place] | | | | | [address] | | + + + + + Care Team Providers + +------+ + | Care Sales Incentive Analyst Name | Role | Phone | [...] | | | | | | | [address] | | | | | | | Phone: | | | | | | | [phone] | | | | | | | Fax: | | | | | | | [phone] | | +--------+--------+ + + + + Encounter Details +--------+---------+ + + + | Date | Type | Department | Care Team | Description | +--------+---------+ + + + | 02/27/ | Office | [facility] | Baudilio Newman | Neuropathy (Primary | | 2015 | Visit | NEUROLOGY LAURIE | MD Pollo Need updated | Dx); Sleep apnea; | | | | [address], | address | Stroke (HCC); | | | | [address] [place] | | Thyroid disease | | | | [place] [address] | | | | | | [phone] | | | +--------+---------+ + + + [...] supply of blood, brain tissue quickly dies. 7925-[address]173 [employer]. [address] [place] [address], [place] [address]. All righ ts reserved. This information is not intended as a substitute for professional medical care. Always follow your healthcare professional's instructions. documented in this encounter Progress Notes Baudilio Newman MD - 02/27/2015 10:31 AM PDTFormatting of this note might be differen t from the original. Baudilio Newman MD [address] [place] [address] Neurology Outpatient New Patient Note Referring Provider: [...] history. Notes from her recent hospitalization at [facility] were reviewed in detail. Ms. Ar[place] started feeling off in the evening of 02/01. She felt dizzy and laid down to slee p. Upon waking, she felt her right side was numb. She tried to get up to go to the bathroom and realized she was weak as well on the right. She was taken to [facility] where she was diagnosed with a TIA/stroke [...] hospitalization . This specimen was characterized at [facility], but the report is not currently available for [facility]. Unfortunately, Ms. Arndt notes that her [...] N/A; Surgeon: Frandy castellanos DO; Location: [facility] MAIN OR Current Medications: Outpatient Medications [...] tablet Take 15 mg by mouth nightly. Tichnor-3 Fatty Acids (FISH OIL CONCENTRATE) 1000 MG [...] BMI 46.04 kg /m2 Neck Circumference: 14" [place] Sleepiness Scale: 2 General: well developed and [...] Romberg test negative Radiographic Review: CTA from [facility] reviewed on [facility]. No significant stenoses seen [...] No results found for this basename: hba1c, qyp7ynf, ldl, ldldirect, ldlext, dldlex Lab Results Component [...] | | | | | [place], [place] | | | | | | [id number] | | | | | | | [...]
--- OUTSIDE RECORDS SUMMARY | ~2019-09-18 | XMS | Encounter Summary ---
Demographics + + + | Address | [address] | | | [place] [address] | + + + | Home Phone [...] [place] | | | | | [address] | | + + + + + Care Team Providers + +------+ + | Care Boatbuilder Supervisor Name | Role | Phone | [...] | Transcriptions | + + | Interface, Tester Food Products In - 10/24/2006 3:09 AM PST | | [facility] | | Road [place], [place] [address] [place] | | [facility] MinnesotaOPERATION RECORDMed Rec No.: [id number] Date: | | [...]
--- OUTSIDE RECORDS SUMMARY | ~2019-09-18 | XMS | Encounter Summary ---
Demographics + + + | Address | [address] | | | [place] [address] | + + + | Home Phone [...] [place] | | | | | [address] | | + + + + + Care Team Providers + +------+ + | Care Salon/Spa Manager Name | Role | Phone | [...] | SLEEP DISORDER [address] | [address] | | | | | [place] | [place], [place] | | | | | [place] [address] | [address] | | | | | [phone] | | | +--------+ + + + [...] | | | | | [place] | | | | | | [id number] | | | | | | | | +--------+---------+ + + + documented as of this encounter Visit Diagnoses Not on filedocumented in this encounter"
--- OUTSIDE RECORDS SUMMARY | ~2019-09-18 | XMS | Encounter Summary ---
Demographics + + + | Address | [address] | | | [place] [address] | + + + | Home Phone [...] [place] | | | | | [address] | | + + + + + Care Team Providers + +------+ + | Care Program Research Specialist Name | Role | Phone [...] + + | 07/10/ | Telephone | [facility] | Frandy Teresa, | Imaging Only (1 year | | 2014 | | NEUROSURGERY [address] | DO [address] | x-ray ) | | | | [address] | [address] [place], [place] | | | | | [place], [place] | [id number] | | | | | [address] | | | | | | [phone] | | | +--------+ + + + [...] [place] | | | | | | [address] | | | | | | | | +--------+---------+ + + + documented as of this encounter Visit Diagnoses Not on filedocumented in this encounter"
--- OUTSIDE RECORDS SUMMARY | ~2019-09-18 | XMS | Encounter Summary ---
Demographics + + + | Address | [address] | | | [place] [address] | + + + | Home Phone [...] [place] | | | | | [address] | | + + + + + Care Team Providers + +------+ + | Care Banking Services Officer Name | Role | Phone | [...] + + | 08/16/ | Telephone | [facility] | Ashley Chávez | Other (Called to | | 2018 | | CARDIOLOGY [place] | Pollo, Weaving Teacher | tell patient what | | | | [address] | | Nicholas said. ) | | | | [address] | | | | | | [place] | | | | | | [address] | | | | | | [phone] | | | +--------+ + + + [...] [place] | | | | | | [address] | | | | | | | | +--------+---------+ + + + documented as of this encounter Visit Diagnoses Not on filedocumented in this encounter"
--- OUTSIDE RECORDS SUMMARY | ~2019-09-18 | XMS | Encounter Summary ---
Demographics + + + | Address | [address] | | | [place] [address] | + + + | Home Phone [...] [place], [place] | | | | | [address] | | + + + + + Care Team Providers + +------+ + | Care Track Supervisor Name | Role | Phone | + +------+ + PCP | Unavailable | + +------+ + Encounter Details +--------+ + + + + | Date | Type | Department | Care Team | Description | +--------+ + + + + | 01/26/ | Hospital | [facility] | Dale, Heath E A, | | | 2012 | Encounter | MED CTR XRAY [address] | MD [address] | | | | | [place] | [place] | | | | | [place] [address] | [address] | | | | | [phone] | | | +--------+ + + + [...] [place] | | | | | | [address] | | | | | | | [...] | [facility] Diagnostic Imaging Department | [facility] | | [address] | [facility] | | BILATERAL KNEES, THREE VIEWS: | [...] Transcribed | | | Date/Time: 01/27/2012 17:18 Assistant Winemaker: | | | <Electronically Signed by Willie Perry MD> 01/27/12 7204 | | + + + + + | Procedure Note | + + | Juan, Rad Conversion - 11/30/2013 5:03 PM [facility] | | Diagnostic Imaging Department [address] [place] [address] | | BILATERAL KNEES, THREE VIEWS: 01/27/2012 [...] 17:12 | |Transcribed Date/Time: 01/27/2012 17:18 | |Assistant Winemaker: | |<Electronically Signed by Willie Perry MD> 01/27/12 827 | + + + +---------+ + + [...]
--- OUTSIDE RECORDS SUMMARY | ~2019-09-18 | XMS | Encounter Summary ---
Demographics + + + | Address | [address] | | | [place] [address] | + + + | Home Phone [...] [place] | | | | | [address] | | + + + + + Care Team Providers + +------+ + | Care Labor Contract Analyst Name | Role | Phone | + +------+ + PCP | Unavailable | + +------+ + Encounter Details +--------+ + + + + | Date | Type | Department | Care Team | Description | +--------+ + + + + | 04/27/ | Hospital | [facility] | Sage Garza MD | | | 2001 | Encounter | HOSPITAL EMERGENCY | | | | | | CENTER [address] | | [address] [place], [place] | | | | | | [address] | | | | | | [phone] | | | +--------+ + + + [...] [place] | | | | | | [address] | | | | | | | | +--------+---------+ + + + documented as of this encounter Visit Diagnoses Not on filedocumented in this encounter"
--- OUTSIDE RECORDS SUMMARY | ~2019-09-18 | XMS | Encounter Summary ---
Demographics + + + | Address | [address] | | | [place] [address] | + + + | Home Phone [...] + + | Author | [facility] | + + + | Organization | [facility] | + + + | Address | Unknown | + + + | Phone | Unavailable | + + + Support + + + + + | Name | Relationship | Address | Phone | + + + + + | Kelsy Bautista | ECON | [address] | | | | | [place] | | | | | [address] | | + + + + + Care Team Providers + +------+ + | Care Dress Designer Name | Role | Phone | [...] | | | | | [place] | | | | | | [place] [address] | | | | | | [phone] | | | +--------+ + + + [...] | + +---------+ + + | [facility] DEPARTMENT OF | | | | | RADIOLOGY | | | | + +---------+ + + documented in this encounter Visit Diagnoses Not on filedocumented in this encounter"
--- OUTSIDE RECORDS SUMMARY | ~2019-09-18 | XMS | Encounter Summary ---
Demographics + + + | Address | [address] | | | [place] [address] | + + + | Home Phone [...] [place], [place] | | | | | [address] | | + + + + + Care Team Providers + +------+ + | Care Ship Boat Or Barge Mate Name | Role | Phone | + +------+ + PCP | Unavailable | + +------+ + Encounter Details +--------+ + + + + | Date | Type | Department | Care Team | Description | +--------+ + + + + | 02/24/ | Hospital | [facility] | | | | 1997 - | Encounter | MED CTR GENERIC PSY | | | | | | CONV DEPT [address] | | | | 02/26/ | | [place], | | | | 1997 | | [place] [address] | | | | | | [phone] | | | +--------+ + + + [...] [place] | | | | | | [address] | | | | | | | | +--------+---------+ + + + documented as of this encounter Visit Diagnoses Not on filedocumented in this encounter"
--- OUTSIDE RECORDS SUMMARY | ~2019-09-18 | XMS | Encounter Summary ---
Demographics + + + | Address | [address] | | | [place] [address] | + + + | Home Phone [...] [place] | | | | | [address] | | + + + + + Care Team Providers + +------+ + | Care Svp Monetization Name | Role | Phone | + [...] | | | | | mellitus, | [address] | [place] | | | | | controlled | Phone: | [address] | | | | | (HCC) | [phone] | Phone: | | | | | History of | Fax: | [phone] | | | | | gastric | [phone] | Fax: | | | | | restrictive | | [phone] | | | | | surgery | [...] | Required | | hypertension | [address] | | | | | Lumbar | AVE [place] | [address] | | | | | radiculopath | [place], [place] | AVE | | | | | y Type 2 | [address] | [place] | | | | | diabetes | Phone: | [address] | | | | | mellitus, | [phone] | Phone: | | | | | controlled | Fax: | [phone] | | | | | (HCC) | [phone] | Fax: | | | | | Obesity, | | [phone] | | | | | Class III, [...] | | FORTUNATO & Katharine BUCIO in [place]. 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 Ask [facility] if they think it might be helpful [...] Cont your meds as prescribed. F/U with [facility] as scheduled Neuropathy Continue gabapentin. May consider increase if pain is not controlled. May benefit from switching from Paxil to one of the SNRIs or TCAs for analgesic effects, holly manju, she is doing so well on her current regimen it may not be worth making any changes an d find alternate ways to deal with the pain. Would be worth discussing with [facility] Psych Back Pain Will refer to water therapy (aqua fitness) at [facility] as request ed. [...] Cont your meds as prescribed. F/U with [facility] as scheduled Neuropathy Continue gabapentin. May consider [...] the pain. Would be worth discussing with [facility] professional. Back Pain Will refer to water therapy (aqua fitness) at [facility] as request ed. Cont home exercise, [...] plan. The above note was dictated using [employer] voice recognition software. It may have not been proofread in entirety. Minor errors in grammar may occur. CHIEF COMPLAINT Chief Complaint Patient presents with [facility] Presents to establish care. Former patient of [facility] in [place]. Other Possible stroke January 2015. Is now [...] auditory, at 36. 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 She is now very well controlled on Saphris, Depakote, and Paxi l. She is followed by [facility] in [place]. She has DM2 that is well controlled [...] worked up by steve rowe, Dr [place], [place]. More recently, she presented to ED with [...] Location: [facility] MA[facility] OR SOCIAL HISTORY History Social History [...] mg by mouth Daily. Cholecalciferol (VITAMIN D-3) 39350 units CAPS Oral Take 50,000 Units by [...] Oral Take 10 mg by mouth nightly. [place]-3 Fatty Acids (FISH OIL CONCENTRATE) 1000 MG [...] [place] | | | | | | [address] | | | | | | | [...] 12 | 7 - 18 mg/dL | [facility] | | | | | | [facility] | | | | | | MEDICAL | | | | | | CENTER - | | | | | | LABORATORY | | + + + + + + | Creatinine | 0.66 | 0.60 - 1.30 | [facility] | | | | | mg/dL | [facility] | | | | | | MEDICAL | | | | | | CENTER - | | | | | | LABORATORY | | + + + + + + | eGFR if not | >60Comment: GLOMERULAR | >=60 | [facility] | | | | FILTRATION | mL/min/1.73m2 | [facility] | | | MAURITIAN | RATE,ESTIMATED | | MEDICAL | | | | mL/min/1.72c9Wmyh than | | CENTER - | | [...] [address] | [place] | [phone] | | [facility] | | [address] | | | - LABORATORY | | [...]
--- OUTSIDE RECORDS SUMMARY | ~2019-09-18 | XMS | Encounter Summary ---
Demographics + + + | Address | [address] | | | [place] [address] | + + + | Home Phone [...] [place], [place] | | | | | [address] | | + + + + + Care Team Providers + +------+ + | Care Conveyor Mechanic Name | Role | Phone | + +------+ + PCP | Unavailable | + +------+ + Encounter Details +--------+ + + + + | Date | Type | Department | Care Team | Description | +--------+ + + + + | 02/22/ | Hospital | [facility] | | | | 1996 - | Encounter | MED CTR GENERIC PSY | | | | | | CONV DEPT [address] | | | | 02/26/ | | [place], | | | | 1996 | | [place] [address] | | | | | | [phone] | | | +--------+ + + + [...] [place] | | | | | | [address] | | | | | | | | +--------+---------+ + + + documented as of this encounter Visit Diagnoses Not on filedocumented in this encounter"
--- OUTSIDE RECORDS SUMMARY | ~2019-09-18 | XMS | Encounter Summary ---
Demographics + + + | Address | [address] | | | [place] [address] | + + + | Home Phone [...] [place], [place] | | | | | [address] | | + + + + + Care Team Providers + +------+ + | Care Poultry Processing Supervisor Name | Role | Phone | + +------+ + PCP | Unavailable | + +------+ + Encounter Details +--------+ + + + + | Date | Type | Department | Care Team | Description | +--------+ + + + + | 08/21/ | Hospital | [facility] | | | | 1996 | Encounter | MED CTR LABORATORY | | | | | | [address] | | | | | | [place] | | | | | | [address] | | | | | | [phone] | | | +--------+ + + + [...] | | | | | [place] | | | | | | [address] | | | | | | | | +--------+---------+ + + + documented as of this encounter Visit Diagnoses Not on filedocumented in this encounter"
--- OUTSIDE RECORDS SUMMARY | ~2019-09-18 | XMS | Encounter Summary ---
Demographics + + + | Address | [address] | | | [place] [address] | + + + | Home Phone [...] [place] | | | | | [address] | | + + + + + Care Team Providers + +------+ + | Care Employee Relations Consultant Name | Role | Phone | + +------+ + | Basim Bolanos MD | PCP | | + +------+ + Encounter Details +--------+ + + + + | Date | Type | Department | Care Team | Description | +--------+ + + + + | 03/30/ | Hospital | [facility] | Tyrese Neely MD | | | 2012 | Encounter | MED CTR MP INTRA OP | [address], [place] | | | | | [address] | [address] [place], [place] | | | | | [place], [place] | [address] | | | | | [address] | | | | | | [phone] | | | +--------+ + + + [...] + + + +---------+ + + | [place]-3 Fatty | Take 1,000 mg by | [...] [place] | | | | | | [address] | | | | | | | [...] + | [facility] | [address] | [place] | [phone] | | [facility] | | [address] | | | - LABORATORY | | | | + + + + + | [facility] | [address] | [place] | | | [facility] | | [address] | | | - LABORATORY | | [...] + | [facility] | [address] | [place], [place] | [phone] | | [facility] | | [address] | | | - LABORATORY | | | | + + + + + | [facility] | [address] | [place], [place] | | | [facility] | | [address] | | | - LABORATORY | | | | + + + + + documented in this encounter Visit Diagnoses Not on filedocumented in this encounter"
--- OUTSIDE RECORDS SUMMARY | ~2019-09-18 | XMS | Encounter Summary ---
Demographics + + + | Address | [address] | | | [place] [address] | + + + | Home Phone [...] [place] | | | | | [address] | | + + + + + Care Team Providers + +------+ + | Care Bankruptcy Judge Name | Role | Phone | [...] | 02/26/ | Emergency | [facility] | [place], | CVA (cerebral | | 2015 | | MED CTR EMERGENCY | Davey Simons MD [address] | vascular accident) | | | | CENTER [address] [place] | [address] [facility] | ([facility]) (Primary Dx) | | | | [place], [place] | [place] [address] | | | | | [address] | [phone] | | | | | [phone] | | | +--------+ + + + [...] + + + +---------+ + + | [place]-3 Fatty | Take 1,000 mg by | [...] | | | | | [place] | | | | | | [address] | | | | | | | [...] mL/min/1.73m2 | [facility] | | | [facility] | RATE,ESTIMATED | | MEDICAL | | | | mL/min/1.53y6Nxvi than | | CENTER - | | [...] | 9.1 | 8.3 - 10.5 | [facility] | | | | | mg/dL | [...] [address] | [place] | [phone] | | [facility] | | [address] | | | - LABORATORY | | [...] [address] | [place] | [phone] | | [facility] | | [address] | | | - LABORATORY | | [...] ---- | | | 02/26/2015 13:10 [facility] | | | Emergency -numbness/facial droop 02/26/2015 08:15 [facility] | | | [facility] 02/19/2015 | | [...] status 02/06/2015 10:46 | | | [facility] | | | [...] ------ | | | --------- [address] | | | [facility] [address] [facility] [address] | | | [facility] 7 0 Total | | | Note: [...]
--- OUTSIDE RECORDS SUMMARY | ~2019-09-18 | XMS | Encounter Summary ---
Demographics + + + | Address | [address] | | | [place] [address] | + + + | Home Phone [...] [place] | | | | | [address] | | + + + + + Care Team Providers + +------+ + | Care Yarn Rewinder Name | Role | Phone | + [...] + + | 03/03/ | Telephone | [facility] | Baudilio Newman | Other (Results) | | 2014 | | NEUROLOGY LAURIE | MD Pollo Need updated | | | | | [address], | address | | | | | [address] [place] | | | | | | [place] [address] | | | | | | [phone] | | | +--------+ + + + [...] [place] | | | | | | [address] | | | | | | | | +--------+---------+ + + + documented as of this encounter Visit Diagnoses Not on filedocumented in this encounter"
--- OUTSIDE RECORDS SUMMARY | ~2019-09-18 | XMS | Encounter Summary ---
Demographics + + + | Address | [address] | | | [place] [address] | + + + | Home Phone [...] [place], [place] | | | | | [address] | | + + + + + Care Team Providers + +------+ + | Care Morning News Producer Name | Role | Phone | + +------+ + PCP | Unavailable | + +------+ + Encounter Details +--------+ + + + + | Date | Type | Department | Care Team | Description | +--------+ + + + + | 07/17/ | Hospital | [facility] | | | | 1997 | Encounter | MED CTR EMERGENCY | | | | | | [address] | | | | | | [place] | | | | | | [address] | | | | | | [phone] | | | +--------+ + + + [...] | | | | | [place] | | | | | | [address] | | | | | | | | +--------+---------+ + + + documented as of this encounter Visit Diagnoses Not on filedocumented in this encounter"
--- OUTSIDE RECORDS SUMMARY | ~2019-09-18 | XMS | Encounter Summary ---
Demographics + + + | Address | [address] | | | [place] [address] | + + + | Home Phone [...] [place] | | | | | [address] | | + + + + + Care Team Providers + +------+ + | Care Healthcare Business Analyst Name | Role | Phone [...] [address] | [address] [place], [place] | | | | | [place], [place] | [id number] | | | | | [address] | | | | | | [phone] | | | +--------+ + + + [...] | | | | | [place] | | | | | | [address] | | | | | | | | +--------+---------+ + + + documented as of this encounter Visit Diagnoses Not on filedocumented in this encounter"
--- OUTSIDE RECORDS SUMMARY | ~2019-09-18 | XMS | Encounter Summary ---
Demographics + + + | Address | [address] | | | [place] [address] | + + + | Home Phone [...] [place] | | | | | [address] | | + + + + + Care Team Providers + +------+ + | Care Postdoctoral Fellow Name | Role | Phone | + +------+ + | Basim Bolanos MD | PCP | | + +------+ + Encounter Details +--------+ + + + + | Date | Type | Department | Care Team | Description | +--------+ + + + + | 03/01/ | Abstract | [facility] [place] | [facility], | | | 2012 | | GASTROENTEROLOGY | FORTUNATO Thomas [address] | | | | | [address] | [place] | | | | | [address] [place], [place] | [place], [place] | | | | | [address] | [address] | | | | | [phone] | | | +--------+ + + + [...] [place] | | | | | | [address] | | | | | | | | +--------+---------+ + + + documented as of this encounter Visit Diagnoses Not on filedocumented in this encounter"
--- OUTSIDE RECORDS SUMMARY | ~2019-09-18 | XMS | Encounter Summary ---
Demographics + + + | Address | [address] | | | [place] [address] | + + + | Home Phone [...] [place] | | | | | [address] | | + + + + + Care Team Providers + +------+ + | Care Ballpoint Pens Assembler Name | Role | Phone [...] | | | | | Procedures | CATERING TRUCK OPERATOR [address] | [address] | | | | | DE OFFICE | | [address] | | | | | CONSULTATION | [address] | [place] | | | | | NEW/ESTAB | [facility], | [address] Phone: | | | | | PATIENT 60 | [place] [address] | [phone] | | | | | MIN | Phone: | Fax: | | | | | | [phone] | [phone] | | | | | | Fax: | | | | | | | [phone] | | +--------+--------+ + + + + Encounter Details +--------+---------+ + + + | Date | Type | Department | Care Team | Description | +--------+---------+ + + + | 05/02/ | Office | [facility] | Frandy Teresa, | Spondylolisthesis of | | 2013 | Visit | NEUROSURGERY [address] | DO [address] | lumbar region | | | | [address] | [address] [place], [place] | (Primary Dx); Lumbar | | | | [place], [place] | [id number] | stenosis; Lumbar | | | | [address] | | radicular pain; | | | | [phone] | | Lumbago | +--------+---------+ + + [...] DO [address], [address] [place] [address] FAX: NEUROSURGERY HISTORY AND PHYSICAL EXAMINATION CHIEF [...] Take 15 mg by mouth nightl y. [place]-3 Fatty Acids (FISH OIL CONCENTRATE) 1000 MG [...] no apparent deficits with short or termite renewal inspector memory. CRANIAL NERVES: II: Acuity is [...] Intrinsics 5 5 Ulnar Intrinsics 5 5 Dye Reel Operator Helper Strength 5 5 Hip Flexion 5 4* [...] | | | | | [place] | | | | | | [address] | | | | | | | [...]
--- OUTSIDE RECORDS SUMMARY | ~2019-09-18 | XMS | Encounter Summary ---
Demographics + + + | Address | [address] | | | [place] [address] | + + + | Home Phone [...] [place] | | | | | [address] | | + + + + + Care Team Providers + +------+ + | Care Six Horse Hitch Driver Name | Role | Phone | [...] | Frandy Simons DO | [address] | | | | | of skin | [address] | [place], | | | | | sensation | [address] | [place] | | | | | Arthrodesis | [place], [place] | [address] | | | | | status Left | [address] | Phone: | | | | | leg | Phone: | [phone] | | | | | weakness | [phone] | Fax: | | | | | Procedures | Fax: | [phone] | | | | | MRI Lumbar | [phone] | | | | | | Spine [...] | Frandy Simons DO | [address] | | | | | of skin | [address] | [place], | | | | | sensation | [address] | [place] | | | | | Arthrodesis | [place] | [address] | | | | | status Left | [address] | Phone: | | | | | leg | Phone: | [phone] | | | | | weakness | [phone] | Fax: | | | | | Procedures | Fax: | [phone] | | | | | MRI Lumbar | [phone] | | | | | | Spine wo | | | | | | | Contrast | | | +--------+--------+ + + + + Encounter Details +--------+ + + + + | Date | Type | Department | Care Team | Description | +--------+ + + + + | 08/19/ | Hospital | [facility] | Frandy Teresa, | Status post lumbar | | 2013 | Encounter | MED CTR MRI [address] | DO [address] | spinal fusion; Left | | | | [address] [place], | [address] [place] | leg numbness; Left | | | | [place] [address] | [address] | leg weakness | | | | [phone] | | | +--------+ + + + [...] + + + +---------+ + + | [place]-3 Fatty | Take 1,000 mg by | [...] [place] | | | | | | [address] | | | | | | | [...] the round structure with high T1 and [id number] in the right L3 vertebral | | [...] + | MISCELLANEOUS LAB | | | [phone] | + +---------+ + + | MISCELANIOUS LAB | | | [phone] | + +---------+ + + documented in [...]
--- OUTSIDE RECORDS SUMMARY | ~2019-09-18 | XMS | Encounter Summary ---
Demographics + + + | Address | [address] | | | [place] [address] | + + + | Home Phone [...] | Organization | [facility] | [...] [place], [place] | | | | | [address] | | + + + + + Care Team Providers + +------+ + | Care Document Processor Name | Role | Phone | + +------+ + PCP | Unavailable | + +------+ + Encounter Details +--------+ + + + + | Date | Type | Department | Care Team | Description | +--------+ + + + + | 04/16/ | Hospital | [facility] | | | | 1997 | Encounter | MED CTR XRAY [address] | | | | | | [address] | | | | | | [place] [address] | | | | | | [phone] | | | +--------+ + + + [...] | | | | | [place] | | | | | | [address] | | | | | | | | +--------+---------+ + + + documented as of this encounter Visit Diagnoses Not on filedocumented in this encounter"
--- OUTSIDE RECORDS SUMMARY | ~2019-09-18 | XMS | Encounter Summary ---
Demographics + + + | Address | [address] | | | [place] [address] | + + + | Home Phone [...] [place], [place] | | | | | [address] | | + + + + + Care Team Providers + +------+ + | Care Electronic Maintenance Supervisor Name | Role | Phone | + +------+ + PCP | Unavailable | + +------+ + Encounter Details +--------+ + + + + | Date | Type | Department | Care Team | Description | +--------+ + + + + | 05/23/ | Hospital | [facility] | | | | 1991 | Encounter | MED CTR XRAY [address] | | | | | | [address] | | | | | | [place] [address] | | | | | | [phone] | | | +--------+ + + + [...] | | | | | [place] | | | | | | [address] | | | | | | | | +--------+---------+ + + + documented as of this encounter Visit Diagnoses Not on filedocumented in this encounter"
--- OUTSIDE RECORDS SUMMARY | ~2019-09-18 | XMS | Encounter Summary ---
Demographics + + + | Address | [address] | | | [place] [address] | + + + | Home Phone [...] [place], [place] | | | | | [address] | | + + + + + Care Team Providers + +------+ + | Care Distributed Generation Project Manager Name | Role | Phone | + +------+ + PCP | Unavailable | + +------+ + Encounter Details +--------+ + + + + | Date | Type | Department | Care Team | Description | +--------+ + + + + | 02/28/ | Hospital | [facility] | Doen Gonzales | | | 2011 | Encounter | MED CTR SLEEP | MD Laureano [address] | | | | | [place] [address] | [address] [place] | | | | | [place], [place] | [place] [address] | | | | | [address] | [phone] | | | | | [phone] | | | +--------+ + + + [...] [place] | | | | | | [address] | | | | | | | | +--------+---------+ + + + documented as of this encounter Visit Diagnoses Not on filedocumented in this encounter"
--- OUTSIDE RECORDS SUMMARY | ~2019-09-18 | XMS | Encounter Summary ---
Demographics + + + | Address | [address] | | | [place] [address] | + + + | Home Phone [...] [place] | | | | | [address] | | + + + + + Care Team Providers + +------+ + | Care Health Promotion Coordinator Name | Role | Phone | [...] + + | 06/27/ | Office | [facility] | Yecenia Richardson, | Hypertension, | | 2019 | Visit | CARDIOLOGY [place] | MD Nitin RODRIGUES | unspecified type | | | | [address] | [place], [place] | (Primary Dx); | | | | KEV SCHAFER [facility] | [address] | Bradycardia | | | | [place] | | | | | | [address] | | | | | | [phone] | | | +--------+---------+ + + + [...] urgent basis. Had an appointment today in [facility]. She has been feeling dizzy as [...] Take by mouth. Blood Glucose Monitoring Suppl ([employer] VERIO FLEX SYSTEM) w/Device KIT by Does [...] mg by mouth Daily. Cholecalciferol (VITAMIN D-3) 27530 units CAPS Take 50,000 Units by mouth [...] tablet Take 10 mg by mouth nightly. [place]-3 Fatty Acids (FISH OIL CONCENTRATE) 1000 MG [...] | | | | | | [place] [facility] | | | | | | [address] | | | | | | | [...]
--- OUTSIDE RECORDS SUMMARY | ~2019-09-18 | XMS | Encounter Summary ---
Demographics + + + | Address | [address] | | | [place] [address] | + + + | Home Phone [...] [place], [place] | | | | | [address] | | + + + + + Care Team Providers + +------+ + | Care Costume Shop Manager Name | Role | Phone | + +------+ + PCP | Unavailable | + +------+ + Encounter Details +--------+ + + + + | Date | Type | Department | Care Team | Description | +--------+ + + + + | 06/17/ | Hospital | [facility] | | | | 1991 - | Encounter | MED CTR GENERIC PSY | | | | | | CONV DEPT [address] | | | | 06/18/ | | [place], | | | | 1991 | | [place] [address] | | | | | | [phone] | | | +--------+ + + + [...] [place] | | | | | | [address] | | | | | | | | +--------+---------+ + + + documented as of this encounter Visit Diagnoses Not on filedocumented in this encounter"
--- OUTSIDE RECORDS SUMMARY | ~2019-09-18 | XMS | Encounter Summary ---
Demographics + + + | Address | [address] | | | [place] [address] | + + + | Home Phone [...] [place], [place] | | | | | [address] | | + + + + + Care Team Providers + +------+ + | Care Tungsten Refiner Name | Role | Phone | + +------+ + PCP | Unavailable | + +------+ + Encounter Details +--------+ + + + + | Date | Type | Department | Care Team | Description | +--------+ + + + + | 03/13/ | Hospital | [facility] | | | | 1996 - | Encounter | MED CTR GENERIC OP | | | | | | CONV DEPT [address] | | | | 03/21/ | | [address], | | | | 1996 | | [place] [address] | | | | | | [phone] | | | +--------+ + + + [...] [place] | | | | | | [address] | | | | | | | | +--------+---------+ + + + documented as of this encounter Visit Diagnoses Not on filedocumented in this encounter"
--- OUTSIDE RECORDS SUMMARY | ~2019-09-18 | XMS | Encounter Summary ---
Demographics + + + | Address | [address] | | | [place] [address] | + + + | Home Phone [...] [place] | | | | | [address] | | + + + + + Care Team Providers + +------+ + | Care Hand Finisher Name | Role | Phone | + +------+ + | Natalee Andersen NP | PCP | | + +------+ + Encounter Details +--------+ + + + + | Date | Type | Department | Care Team | Description | +--------+ + + + + | 07/06/ | Hospital | [facility] | Latricia Feliciano | | | 2014 | Encounter | MED CTR ACUTE | D, PT [address] | | | | | PHYSICAL THERAPY | NEFTALIE [place] | | | | | [address] | [address] | | | | | [place] [address] | | | | | | [phone] | | | +--------+ + + + [...] + + + +---------+ + + | [place]-3 Fatty | Take 1,000 mg by | [...] | | | | | [place] | | | | | | [address] | | | | | | | | +--------+---------+ + + + documented as of this encounter Visit Diagnoses Not on filedocumented in this encounter"
--- OUTSIDE RECORDS SUMMARY | ~2019-09-18 | XMS | Encounter Summary ---
Demographics + + + | Address | [address] | | | [place] [address] | + + + | Home Phone [...] [place] | | | | | [address] | | + + + + + Care Team Providers + +------+ + | Care Tower Observer Name | Role | Phone | [...] + + | 03/04/ | Telephone | [facility] | Baudilio Newman | Other (Plavix) | | 2014 | | NEUROLOGY LAURIE | MD Pollo Need updated | | | | | [address], | address | | | | | [address] [place] | | | | | | [place] [address] | | | | | | [phone] | | | +--------+ + + + [...] [place] | | | | | | [address] | | | | | | | | +--------+---------+ + + + documented as of this encounter Visit Diagnoses Not on filedocumented in this encounter"
--- OUTSIDE RECORDS SUMMARY | ~2019-09-18 | XMS | Encounter Summary ---
Demographics + + + | Address | [address] | | | [place] [address] | + + + | Home Phone [...] [place] | | | | | [address] | | + + + + + Care Team Providers + +------+ + | Care Ramp Service Man Name | Role | Phone | [...] [address] | [address] [place], [place] | | | | | [place], [place] | [address] | | | | | [address] | | | | | | [phone] | | | +--------+ + + + [...] [place] | | | | | | [address] | | | | | | | | +--------+---------+ + + + documented as of this encounter Visit Diagnoses Not on filedocumented in this encounter"
--- OUTSIDE RECORDS SUMMARY | ~2019-09-18 | XMS | Encounter Summary ---
Demographics + + + | Address | [address] | | | [place] [address] | + + + | Home Phone [...] [place], [place] | | | | | [address] | | + + + + + Care Team Providers + +------+ + | Care Associate Oracle Retail Name | Role | Phone | + +------+ + PCP | Unavailable | + +------+ + Encounter Details +--------+ + + + + | Date | Type | Department | Care Team | Description | +--------+ + + + + | 12/31/ | Hospital | [facility] | | | | 1996 | Encounter | MED CTR XRAY [address] | | | | | | [address] | | | | | | [place] [address] | | | | | | [phone] | | | +--------+ + + + [...] | | | | | [place] | | | | | | [address] | | | | | | | | +--------+---------+ + + + documented as of this encounter Visit Diagnoses Not on filedocumented in this encounter"
--- OUTSIDE RECORDS SUMMARY | ~2019-09-18 | XMS | Encounter Summary ---
Demographics + + + | Address | [address] | | | [place] [address] | + + + | Home Phone [...] [place], [place] | | | | | [address] | | + + + + + Care Team Providers + +------+ + | Care Media Clerk Name | Role | Phone | + +------+ + PCP | Unavailable | + +------+ + Encounter Details +--------+ + + + + | Date | Type | Department | Care Team | Description | +--------+ + + + + | 05/25/ | Hospital | [facility] | | | | 1991 | Encounter | MED CTR LABORATORY | | | | | | [address] | | | | | | [place] | | | | | | [address] | | | | | | [phone] | | | +--------+ + + + [...] | | | | | [place] | | | | | | [address] | | | | | | | | +--------+---------+ + + + documented as of this encounter Visit Diagnoses Not on filedocumented in this encounter"
--- OUTSIDE RECORDS SUMMARY | ~2019-09-18 | XMS | Encounter Summary ---
Demographics + + + | Address | [address] | | | [place] [address] | + + + | Home Phone [...] [place], [place] | | | | | [address] | | + + + + + Care Team Providers + +------+ + | Care Fuel Attendant Name | Role | Phone | + +------+ + PCP | Unavailable | + +------+ + Encounter Details +--------+ + + + + | Date | Type | Department | Care Team | Description | +--------+ + + + + | 05/29/ | Hospital | [facility] | | | | 1991 | Encounter | MED CTR LABORATORY | | | | | | [address] | | | | | | [place] | | | | | | [address] | | | | | | [phone] | | | +--------+ + + + [...] | | | | | [place] | | | | | | [address] | | | | | | | | +--------+---------+ + + + documented as of this encounter Visit Diagnoses Not on filedocumented in this encounter"
--- OUTSIDE RECORDS SUMMARY | ~2019-09-18 | XMS | Encounter Summary ---
Demographics + + + | Address | [address] | | | [place] [address] | + + + | Home Phone [...] [place], [place] | | | | | [address] | | + + + + + Care Team Providers + +------+ + | Care Inspector And Adjuster Golf Club Head Name | Role | Phone | + +------+ + PCP | Unavailable | + +------+ + Encounter Details +--------+ + + + + | Date | Type | Department | Care Team | Description | +--------+ + + + + | 12/31/ | Hospital | [facility] | | | | 1996 | Encounter | MED CTR XRAY [address] | | | | | | [address] | | | | | | [place] [address] | | | | | | [phone] | | | +--------+ + + + [...] | | | | | [place] | | | | | | [address] | | | | | | | | +--------+---------+ + + + documented as of this encounter Visit Diagnoses Not on filedocumented in this encounter"
--- OUTSIDE RECORDS SUMMARY | ~2019-09-18 | XMS | Encounter Summary ---
Demographics + + + | Address | [address] | | | [place] [address] | + + + | Home Phone [...] & [facility] [place] | | | and [place] | + + + | Address | Unknown | + + + | Phone | Unavailable | + + + Support + + + + + | Name | Relationship | Address | Phone | + + + + + | Araceli Sibely | ECON | [place] | | | | | [address] | | + + + + + [...] | 06/10/ | Abstract | [facility] | Thierry Fry | | | 2014 | | MEDICINE [address] | MD Lisa [address] | | | | | Street [place] | [address] [place] | | | | | [place] [address] | [address] | | | | | [phone] | | | +--------+ + + + [...] | | | | | [place] | | | | | | [address] | | | | | | | [...]
--- OUTSIDE RECORDS SUMMARY | ~2019-09-18 | XMS | Encounter Summary ---
Demographics + + + | Address | [address] | | | [place] [address] | + + + | Home Phone [...] [place] | | | | | [address] | | + + + + + Care Team Providers + +------+ + | Care Dye Colorist Formulator Name | Role | Phone | + +------+ + | Ntaalee Andersen NP | PCP | | + [...] + + | 06/12/ | Office | [facility] | Chris Nicole, | Spondylisthesis | | 2013 | Visit | NEUROSURGERY [address] | PA-C [address] | (Primary Dx); | | | | [address] | [place], [place] | Radiculopathy of | | | | [place], [place] | [address] | leg; Lumbar spine | | | | [address] | | instability; Lumbar | | | | [phone] | | spondylosis; | | | | [...] destinee. documented in this encounter Progress Notes Alil Cruz PA - 06/12/2014 2:57 PM PDTFormatting of this note might be different f rom the original. ZANE Castillo [address] [place] [address] FAX: NEUROSURGERY HISTORY AND PHYSICAL [...] Take 15 mg by mouth nightl y. [place]-3 Fatty Acids (FISH OIL CONCENTRATE) 1000 MG [...] Intrinsics 5 5 Ulnar Intrinsics 5 5 Technical Expert Strength 5 5 Hip Flexion 5 4* [...] [place] | | | | | | [address] | | | | | | | [...]
--- OUTSIDE RECORDS SUMMARY | ~2019-09-18 | XMS | Encounter Summary ---
Demographics + + + | Address | [address] | | | [place] [address] | + + + | Home Phone [...] [place], [place] | | | | | [address] | | + + + + + Care Team Providers + +------+ + | Care Coach Name | Role | Phone | + +------+ + PCP | Unavailable | + +------+ + Encounter Details +--------+ + + + + | Date | Type | Department | Care Team | Description | +--------+ + + + + | 03/11/ | [facility] | [facility] | Deon Gonzales | | | 2005 | Encounter | MED CTR SLEEP | MD [address] | | | | | [address] [address] | [place] | | | | | [place], [place] | [place] [address] | | | | | [address] | [phone] | | | | | [phone] | | | +--------+ + + + [...] [place] | | | | | | [address] | | | | | | | | +--------+---------+ + + + documented as of this encounter Visit Diagnoses Not on filedocumented in this encounter"
--- OUTSIDE RECORDS SUMMARY | ~2019-09-18 | XMS | Encounter Summary ---
Demographics + + + | Address | [address] | | | [place] [address] | + + + | Home Phone [...] [place] | | | | | [address] | | + + + + + Care Team Providers + +------+ + | Care Gear Generator Set Up Operator Name | Role | [...] | | | spondylolist | | [address] | | | | | hesis | | [place], | | | | | Spinal | | [place] [address] | | | | | stenosis, | | Phone: | | | | | lumbar | | [phone] | | | | | region, | | Fax: | | | | | without | | [phone] | | | | | neurogenic | [...] | | | | | [address] | [address] [place] | | | | | [place] | [phone] | | | | | [address] | | | | | | [phone] | | | +--------+ + + + [...] +----+---+ + + | | 1 | [place] | | | | 2 | 43-degrees | | | | 3 | | | | | 1 | | | +----+---+ + + | | 1 | [place] off | | | | 4 | [...] | | | | | [place], [place] | | | | | | [id number] | | | | | | | [...]
--- OUTSIDE RECORDS SUMMARY | ~2019-09-18 | XMS | Encounter Summary ---
Demographics + + + | Address | [address] | | | [place] [address] | + + + | Home Phone [...] [place] | | | | | [address] | | + + + + + Care Team Providers + +------+ + | Care Hand Sewer Shoes Name | Role | Phone | + +------+ + | Adriano Patrick MD | PCP | | + +------+ + Encounter Details +--------+ + + + + | Date | Type | Department | Care Team | Description | +--------+ + + + + | 06/12/ | Hospital | [facility] | Frandy Teresa, | No Show | | 2014 | Encounter | MED CTR | DO [address] | | | | | ELECTRODIAGNOSTICS | [address] [place], [place] | | | | | [address] [place] | [address] | | | | | [place] [address] | | | | | | [phone] | | | +--------+ + + + [...] [place] | | | | | | [address] | | | | | | | | +--------+---------+ + + + documented as of this encounter Visit Diagnoses Not on filedocumented in this encounter"
--- OUTSIDE RECORDS SUMMARY | ~2019-09-18 | XMS | Encounter Summary ---
Demographics + + + | Address | [address] | | | [place] [address] | + + + | Home Phone [...] [place], [place] | | | | | [address] | | + + + + + Care Team Providers + +------+ + | Care Custodial Supervisor Name | Role | Phone | + +------+ + PCP | Unavailable | + +------+ + Encounter Details +--------+ + + + + | Date | Type | Department | Care Team | Description | +--------+ + + + + | 09/24/ | Hospital | [facility] | | | | 1993 | Encounter | MED CTR LABORATORY | | | | | | [address] | | | | | | [place] | | | | | | [address] | | | | | | [phone] | | | +--------+ + + + [...] | | | | | [place] | | | | | | [address] | | | | | | | | +--------+---------+ + + + documented as of this encounter Visit Diagnoses Not on filedocumented in this encounter"
--- OUTSIDE RECORDS SUMMARY | ~2019-09-18 | XMS | Encounter Summary ---
Demographics + + + | Address | [address] | | | [place] [address] | + + + | Home Phone [...] [place], [place] | | | | | [address] | | + + + + + Care Team Providers + +------+ + | Care Net Application Architect Name | Role | Phone | + +------+ + PCP | Unavailable | + +------+ + Encounter Details +--------+ + + + + | Date | Type | Department | Care Team | Description | +--------+ + + + + | 06/07/ | Hospital | [facility] | | | | 1991 - | Encounter | MED CTR GENERIC OP | | | | | | CONV DEPT [address] | | | | 10/07/ | | [place], | | | | 1991 | | [place] [address] | | | | | | [phone] | | | +--------+ + + + [...] [place] | | | | | | [id number] | | | | | | | | +--------+---------+ + + + documented as of this encounter Visit Diagnoses Not on filedocumented in this encounter"
--- OUTSIDE RECORDS SUMMARY | ~2019-09-18 | XMS | Encounter Summary ---
Demographics + + + | Address | [address] | | | [place] [address] | + + + | Home Phone [...] [place], [place] | | | | | [address] | | + + + + + Care Team Providers + +------+ + | Care Ferryboat Operator Cable Name | Role | Phone | + +------+ + PCP | Unavailable | + +------+ + Encounter Details +--------+ + + + + | Date | Type | Department | Care Team | Description | +--------+ + + + + | 12/27/ | Hospital | [facility] | | | | 1995 | Encounter | MED CTR LABORATORY | | | | | | [address] | | | | | | [place] | | | | | | [address] | | | | | | [phone] | | | +--------+ + + + [...] | | | | | | [place] | | | | | | [address] | | | | | | | | +--------+---------+ + + + documented as of this encounter Visit Diagnoses Not on filedocumented in this encounter"
--- OUTSIDE RECORDS SUMMARY | ~2019-09-18 | XMS | Encounter Summary ---
Demographics + + + | Address | [address] | | | [place] [address] | + + + | Home Phone [...] [place] | | | | | [address] | | + + + + + Care Team Providers + +------+ + | Care Fishing Game Warden Name | Role | Phone | [...] | | | | | | | [address] | | | | | | | Phone: | | | | | | | [phone] | | | | | | | Fax: | | | | | | | [phone] | | +--------+ + + + + + Reason for Visit + + + | Reason | Comments | + + + | Follow-up | 3 mo po | + + + Encounter Details +--------+---------+ + + + | Date | Type | Department | Care Team | Description | +--------+---------+ + + + | 09/27/ | Office | [facility] | rFandy Teresa, | Lumbar spondylosis | | 2013 | Visit | NEUROSURGERY [address] | DO [address] | (Primary Dx); S/P | | | | [address] | [address] [place], [place] | lumbar fusion | | | | [place], [place] | [address] | | | | | [address] | | | | | | [phone] | | | +--------+---------+ + + + [...] original. Frandy Teresa DO [address] [place] [address] FAX: NEUROSURGERY FOLLOW-UP CHIEF COMPLAINT: Chief Complaint [...] Laterality: N/A; Surgeon: Frandy castellanos DO; Location: [facility] MAIN OR CURRENT MEDICATIONS: Current Outpatient [...] Take 15 mg by mouth nightl y. [place]-3 Fatty Acids (FISH OIL CONCENTRATE) 1000 MG [...] | | | | | [place], [place] | | | | | | [address] | | | | | | | [...]
--- OUTSIDE RECORDS SUMMARY | ~2019-09-18 | XMS | Encounter Summary ---
Demographics + + + | Address | [address] | | | [place] [address] | + + + | Home Phone [...] [place] | | | | | [address] | | + + + + + Care Team Providers + +------+ + | Care Oracle Consultant Name | Role | Phone | [...] Closed | | Radiology | Diagnoses | [place], | | | | | | Thoracic or | Natalee L, | | | | | | lumbosacral | DYNAMITE PACKING MACHINE OPERATOR [address] | | | | | | neuritis or | [address] | | | | | | | [address] | | | | | | radiculitis, | [place], | | | | | | unspecified | [place] [address] | | | | | | | Phone: | | | | | | Degeneration | [phone] | | | | | | of lumbar | Fax: | | | | | | or | [phone] | | | | | | lumbosacral [...] + + | 03/11/ | Hospital | [facility] | Natalee Andersen | Thoracic or | | 2013 | Encounter | MED CTR MRI [address] | L, DYNAMITE PACKING MACHINE OPERATOR [address] | lumbosacral neuritis | | | | [place], | [address] | or radiculitis, | | | | [place] [address] | [place] [address] | unspecified; | | | | [phone] | [phone] | Degeneration of | | | | [...] + + + +---------+ + + | [place]-3 Fatty | Take 1,000 mg by | [...] [place] | | | | | | [address] | | | | | | | [...] + | MISCELLANEOUS LAB | | | [phone] | + +---------+ + + | MISCELANIOUS LAB | | | [phone] | + +---------+ + + documented in this encounter Visit Diagnoses + + | Diagnosis | + + | Thoracic or lumbosacral neuritis or radiculitis, unspecified | + + | Degeneration of lumbar or lumbosacral intervertebral disc | + + documented in this encounter"
--- OUTSIDE RECORDS SUMMARY | ~2019-09-18 | XMS | Encounter Summary ---
Demographics + + + | Address | [address] | | | [place] [address] | + + + | Home Phone [...] [place] | | | | | [address] | | + + + + + Care Team Providers + +------+ + | Care Dispatcher Bus And Trolley Name | Role | Phone | + [...] + + | 08/20/ | Documentati | [facility] | Katharine Moncada, | Other (urgent | | 2019 | on | CARDIOLOGY [place] | Technologist | report) | | | | [address] | | | | | | [place] | | | | | | [address] | | | | | | [phone] | | | +--------+ + + + [...] [place] | | | | | | [address] | | | | | | | | +--------+---------+ + + + documented as of this encounter Visit Diagnoses Not on filedocumented in this encounter"
--- OUTSIDE RECORDS SUMMARY | ~2019-09-18 | XMS | Encounter Summary ---
Demographics + + + | Address | [address] | | | [place] [address] | + + + | Home Phone [...] [place] | | | | | [address] | | + + + + + Care Team Providers + +------+ + | Care Sap Solutions Architect Name | Role | Phone | [...] + | 03/26/ | Telephone | [facility] | Thierry Fry | Medication Prior | | 2015 | | MEDICINE [facility] Daniel | MD Lisa [address] | Authorization | | | | [facility] | [facility] [place] | (Dexilant 60Mg) | | | | [place] [address] | [address] | | | | | [phone] | | | +--------+ + + + [...] [place] | | | | | | [address] | | | | | | | | +--------+---------+ + + + documented as of this encounter Visit Diagnoses Not on filedocumented in this encounter"
--- OUTSIDE RECORDS SUMMARY | ~2019-09-18 | XMS | Encounter Summary ---
Demographics + + + | Address | [address] | | | [place] [address] | + + + | Home Phone [...] [place] | | | | | [address] | | + + + + + Care Team Providers + +------+ + | Care Glass Blowing Instructor Name | Role | Phone | [...] [place] | | | | | | [address] | | | | | | [phone] | | | +--------+ + + + [...] [place] | | | | | | [address] | | | | | | | | +--------+---------+ + + + documented as of this encounter Visit Diagnoses Not on filedocumented in this encounter"
--- OUTSIDE RECORDS SUMMARY | ~2019-09-18 | XMS | Encounter Summary ---
Demographics + + + | Address | [address] | | | [place] [address] | + + + | Home Phone [...] [place] | | | | | [address] | | + + + + + Care Team Providers + +------+ + | Care Learning And Development Administrator Name | Role | Phone | [...] [place] | | | | | | [address] | | | | | | [phone] | | | +--------+ + + + [...] [place] | | | | | | [address] | | | | | | | | +--------+---------+ + + + documented as of this encounter Visit Diagnoses Not on filedocumented in this encounter"
--- OUTSIDE RECORDS SUMMARY | ~2019-09-18 | XMS | Encounter Summary ---
Demographics + + + | Address | [address] | | | [place] [address] | + + + | Home Phone [...] [place] | | | | | [address] | | + + + + + Care Team Providers + +------+ + | Care Clinical Social Work Therapist Name | Role | Phone | [...] + | 12/03/ | Refill | [facility] | Frandy Teresa, | Medication Refill | | 2014 | | NEUROSURGERY [address] | DO [address] | | | | | [address] | [address] [place], [place] | | | | | [place], [place] | [id number] | | | | | [address] | | | | | | [phone] | | | +--------+--------+ + + + [...] | | | | [place] | | | | | | [address] | | | | | | | | +--------+---------+ + + + documented as of this encounter Visit Diagnoses Not on filedocumented in this encounter"
--- OUTSIDE RECORDS SUMMARY | ~2019-09-18 | XMS | Encounter Summary ---
Demographics + + + | Address | [address] | | | [place] [address] | + + + | Home Phone [...] [place] | | | | | [address] | | + + + + + Care Team Providers + +------+ + | Care Police Investigator Name | Role | Phone | + +------+ + | Adriano Patrick MD | PCP | | + +------+ + Encounter Details +--------+ + + + + | Date | Type | Department | Care Team | Description | +--------+ + + + + | 05/16/ | Orders Only | [facility] | Provider, | | | 2018 | | SYSTEM GENERIC OP | MD [address] | | | | | [address]VERSION [address] | [address] | | | | | [address] [place], [place] | [place] [address] | | | | | [address] | | | | | | [phone] | | | +--------+ + + + [...] | | | | | [place], [place] | | | | | | [address] | | | | | | | | +--------+---------+ + + + documented as of this encounter Visit Diagnoses Not on filedocumented in this encounter"
--- OUTSIDE RECORDS SUMMARY | ~2019-09-18 | XMS | Encounter Summary ---
Demographics + + + | Address | [address] | | | [place] [address] | + + + | Home Phone [...] [place] | | | | | [address] | | + + + + + Care Team Providers + +------+ + | Care Survey Worker Name | Role | Phone | + +------+ + | Natalee Andersen NP | PCP | | + +------+ + Encounter Details +--------+ + + + + | Date | Type | Department | Care Team | Description | +--------+ + + + + | 06/25/ | Hospital | [facility] | Frandy Teresa, | Diabetes mellitus | | 2014 | Encounter | MED CTR OR INTRA OP | DO [address] | (HCC) (Primary Dx) | | | | [address] | [address] [place], [place] | | | | | [place], [place] | [address] | | | | | [address] | | | | | | [phone] | | | +--------+ + + + [...] + + + +---------+ + + | [place]-3 Fatty | Take 1,000 mg by | [...] as of this encounter Progress Notes Frandy Teersa DO - 06/25/2014 3:53 PM PDTI was [...] [place] | | | | | | [id number] | | | | | | | [...] mL/min/1.73m2 | [facility] | | | [facility] | RATE,ESTIMATED | | MEDICAL | | | | mL/min/1.56c9Fzgz than | | CENTER - | | [...] + | [facility] | [address] | [place], [place] | [phone] | | [facility] | | [address] | | | - LABORATORY | | | | + + + + + | [facility] | [address] | [place], [place] | | | [facility] | | [address] | | | - LABORATORY | | [...] + | [facility] | [address] | [place] | [phone] | | [facility] | | [address] | | | - LABORATORY | | | | + + + + + | [facility] | [address] | [place], [place] | | | [facility] | | [address] | | | - LABORATORY | | [...] [address] | [place] | [phone] | | [facility] | | [address] | | | - LABORATORY | | | | + + + + + | [facility] | [address] | [place] | | | [facility] | | [address] | | | - LABORATORY | | [...] | | [facility] | | [address] | | | - BLOOD BANK | [...] + | [facility] | [address] | [place] | [phone] | | [facility] | | [address] | | | - LABORATORY | | | | + + + + + | [facility] | [address] | [place], [place] | | | [facility] | | [address] | | | - LABORATORY | | [...]
--- OUTSIDE RECORDS SUMMARY | ~2019-09-18 | XMS | Clinical Summary ---
Demographics + + + | Address | [address] | | | [place] [address] | + + + | Home Phone [...] [place] | | | | | [address] | | + + + + + Care Team Providers + +------+ + | Care Wet Pan Operator Name | Role | Phone | + +------+ + PCP | Unavailable | + +------+ + Source Comments EDWARD is fully live on both [facility] Ambulatory and [facility] InPatient.[facility] Allergies Not on File [...] | [facility] | xxxxxxxxxx | 02/22/20 | [phone] | [address] | [facility] | | | RE A & | | 15-Pre | 1 | [address] | re | | | B | | sent | | [place] | | | | | | | | [address] | | + +--------+ +--------+ + +--------+ + +--------+ +--------+ + + | Guarantor Name | Accoun | Relation to | Date | Phone | Billing Address | | | t Type | Patient | of | | | | | | | | | | + +--------+ +--------+ + + | CINDY ARNDT | Person | Self | [birth year] | [address] | | al/Fam | | 1955 | [phone] | [address] [place] | | | [place]onte | | | 5 (Home) | [address] | + +--------+ +--------+ + +"
--- OUTSIDE RECORDS SUMMARY | ~2019-09-18 | XMS | Encounter Summary ---
Demographics + + + | Address | [address] | | | [place] [address] | + + + | Home Phone [...] [place] | | | | | [address] | | + + + + + Care Team Providers + +------+ + | Care Corn Popper Name | Role | Phone | + [...] + + | 04/30/ | Office | [facility] | Russell Alfaro PA | ROGERS on CPAP (Primary | | 2015 | Visit | SLEEP DISORDER [address] | [address] | Dx) | | | | [address] [place] | [place] | | | | | [place] [address] | [address] | | | | | [phone] | | | +--------+---------+ + + + [...] Insomnia Severity Index Insomnia Severity Index 13 [place]field Sleepiness Scale Sitting and reading 3 Watching [...] nasal obtained from: [facility] [place] pressure: 11-20 cm Median: 12.1 cm 95%: [...] appro priate paperwork. Thirty minutes were spent [id number]-[id number], with the majority of time spent i [...] | | | | | [place], [place] | | | | | | [address] | | | | | | | | +--------+---------+ + + + documented as of this encounter Visit Diagnoses + + | Diagnosis | + + | ROGERS on CPAP - Primary Obstructive sleep apnea (adult) (pediatric) | + + documented in this encounter"
--- OUTSIDE RECORDS SUMMARY | ~2019-09-18 | XMS | Encounter Summary ---
Demographics + + + | Address | [address] | | | [place] [address] | + + + | Home Phone [...] [place] | | | | | [address] | | + + + + + Care Team Providers + +------+ + | Care Designer Name | Role | Phone | [...] [place] | | | | | | [address] | | | | | | [phone] | | | +--------+ + + + [...] [place] | | | | | | [address] | | | | | | | | +--------+---------+ + + + documented as of this encounter Visit Diagnoses Not on filedocumented in this encounter"
--- OUTSIDE RECORDS SUMMARY | ~2019-09-18 | XMS | Encounter Summary ---
Demographics + + + | Address | [address] | | | [place] [address] | + + + | Home Phone [...] [place] | | | | | [address] | | + + + + + Care Team Providers + +------+ + | Care Transportation Services Representative Name | Role | Phone [...] + + | 07/06/ | Emergency | [facility] | Yunior [place], | Chest pain, | | 2014 | | MED CTR EMERGENCY | MD [address] | unspecified chest | | | | CENTER [address] | [place], [place] | pain type (Primary | | | | [place] | [address] | Dx) | | | | [address] | | | | | | [phone] | | | +--------+ + + + [...] sent through Care Everywhere.CHEST PAIN, NON CARDIAC (UKRAINIAN)documented in this encounter Medications at Time of [...] 0 | | | | (VITAMIN D-3) [address] | mouth Once a week. | | [...] | | | | ([facility]) | | | | | [...] + + + +---------+ + + | [place]-3 Fatty | Take 1,000 mg by | [...] [place] | | | | | | [address] | | | | | | | [...] [address] | [place] | [phone] | | [facility] | | [address] | | | - LABORATORY | | [...] [address] | [place] | [phone] | | [facility] | | [address] | | | - LABORATORY | | [...] | | | | | | [employer] | | | | | [...] + | [facility] | [address] | [place] | [phone] | | [facility] | | [address] | | | - LABORATORY | | [...] mL/min/1.73m2 | [facility] | | | TAJIK | RATE,ESTIMATED | | MEDICAL | | | | mL/min/1.59y5Jfxt than | | CENTER - | | [...] [address] | [place] | [phone] | | [facility] | | [address] | | | - LABORATORY | | [...] [address] | [place] | [phone] | | [facility] | | [address] | | | - LABORATORY | | [...] | | | | MD NAZARIO JON ([id number]) | | | | | | on [...]
--- OUTSIDE RECORDS SUMMARY | ~2019-09-18 | XMS | Encounter Summary ---
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 ) | | | | [place] | | | | | | [address] | | | | | | [phone] | | | +--------+ + + + [...] [place] | | | | | | [address] | | | | | | | | +--------+---------+ + + + documented as of this encounter Visit Diagnoses Not on filedocumented in this encounter"
--- OUTSIDE RECORDS SUMMARY | ~2019-09-18 | XMS | Encounter Summary ---
Demographics + + + | Address | [address] | | | [place] [address] | + + + | Home Phone [...] [place] | | | | | [address] | | + + + + + Care Team Providers + +------+ + | Care Folder Seamer Automatic Name | Role | Phone | [...] [place] | | | | | | [address] | | | | | | [phone] | | | +--------+ + + + [...] [place] | | | | | | [address] | | | | | | | | +--------+---------+ + + + documented as of this encounter Visit Diagnoses Not on filedocumented in this encounter"
--- OUTSIDE RECORDS SUMMARY | ~2019-09-18 | XMS | Encounter Summary ---
Demographics + + + | Address | [address] | | | [place] [address] | + + + | Home Phone [...] [place] | | | | | [address] | | + + + + + Care Team Providers + +------+ + | Care Home Child Care Provider Name | Role | Phone | + +------+ + | Basim Bolanos MD | PCP | | + +------+ + Encounter Details +--------+ + + + + | Date | Type | Department | Care Team | Description | +--------+ + + + + | 03/30/ | Hospital | [facility] | Tyrese Neely MD | | | 2012 | Encounter | MED CTR MP INTRA OP | [address] [place] | | | | | [address] | [address] [place], [place] | | | | | [place], [place] | [address] | | | | | [address] | | | | | | [phone] | | | +--------+ + + + [...] + + + +---------+ + + | [place]-3 Fatty | Take 1,000 mg by | [...] [place] | | | | | | [address] | | | | | | | [...] + | [facility] | [address] | [place] | [phone] | | [facility] | | [address] | | | - LABORATORY | | | | + + + + + | [facility] | [address] | [place] | | | [facility] | | [address] | | | - LABORATORY | | [...] + | [facility] | [address] | [place], [place] | [phone] | | [facility] | | [address] | | | - LABORATORY | | | | + + + + + | [facility] | [address] | [place], [place] | | | [facility] | | [address] | | | - LABORATORY | | | | + + + + + documented in this encounter Visit Diagnoses Not on filedocumented in this encounter"
--- OUTSIDE RECORDS SUMMARY | ~2019-09-18 | XMS | Encounter Summary ---
Demographics + + + | Address | [address] | | | [place] [address] | + + + | Home Phone [...] [place], [place] | | | | | [address] | | + + + + + Care Team Providers + +------+ + | Care Manager Reporting Name | Role | Phone | + +------+ + PCP | Unavailable | + +------+ + Encounter Details +--------+ + + + + | Date | Type | Department | Care Team | Description | +--------+ + + + + | 12/09/ | Hospital | [facility] | Serafin Bautista | | | 2012 | Encounter | MED CTR XRAY [address] | T, MD [address] | | | | | [place] | [address] [place], [place] | | | | | [place] [address] | [address] | | | | | [phone] | | | +--------+ + + + [...] [place] | | | | | | [address] | | | | | | | [...] Performed At | + + + | [facility] Diagnostic Imaging Department | [facility] | | [address] | [facility] | | PROCEDURE NOTE EPIDURAL | DIAG IMG | | STEROID INJECTIONS, 12/09/2011 CLINICAL HISTORY: ICD-9 CODE 724.4, | | | LUMBAR RADICULITIS. Ms. Cindy Arntd presents to the | | | fluoroscopy [...] Manohar Martinez Conversion - 11/30/2013 4:45 PM [facility] | | Diagnostic Imaging Department | | [address] | | | | | | | [...] + | Performing | Address | City/State/[facility] | Phone Number | | Organization | | | | + +---------+ + + | [place] | | | | | [facility] | | | | + +---------+ + + documented in this encounter Visit Diagnoses Not on filedocumented in this encounter"
--- OUTSIDE RECORDS SUMMARY | ~2019-09-18 | XMS | Encounter Summary ---
Demographics + + + | Address | [address] | | | [place] [address] | + + + | Home Phone [...] [place], [place] | | | | | [address] | | + + + + + Care Team Providers + +------+ + | Care Chief Digital Media Officer Name | Role | Phone | + +------+ + PCP | Unavailable | + +------+ + Encounter Details +--------+ + + + + | Date | Type | Department | Care Team | Description | +--------+ + + + + | 05/25/ | Hospital | [facility] | | | | 1991 | Encounter | MED CTR LABORATORY | | | | | | [address] | | | | | | [place] | | | | | | [address] | | | | | | [phone] | | | +--------+ + + + [...] | | | | | [place] | | | | | | [address] | | | | | | | | +--------+---------+ + + + documented as of this encounter Visit Diagnoses Not on filedocumented in this encounter"
--- OUTSIDE RECORDS SUMMARY | ~2019-09-18 | XMS | Encounter Summary ---
Demographics + + + | Address | [address] | | | [place] [address] | + + + | Home Phone [...] [place] | | | | | [address] | | + + + + + Care Team Providers + +------+ + | Care Independent Freight Agent Name | Role | Phone | [...] [place] | | | | | | [address] | | | | | | [phone] | | | +--------+ + + + [...] [place] | | | | | | [address] | | | | | | | | +--------+---------+ + + + documented as of this encounter Visit Diagnoses Not on filedocumented in this encounter"
--- OUTSIDE RECORDS SUMMARY | ~2019-09-18 | XMS | Encounter Summary ---
Demographics + + + | Address | [address] | | | [place] [address] | + + + | Home Phone [...] [place] | | | | | [address] | | + + + + + Care Team Providers + +------+ + | Care Health Lead Name | Role | Phone | [...] Office | [facility] | Chris Nicole, | Spondylisthesis | | 2013 | Visit | NEUROSURGERY [address] | PA-C [address] | (Primary Dx); | | | | [address] | [place], [place] | Radiculopathy of | | | | [place], [place] | [address] | leg; Lumbar spine | | | | [address] | | instability; Lumbar | | | | [phone] | | spondylosis; | | | | [...] rom the original. ZANE Castillo [address] [facility], [address] [place] [address] FAX: NEUROSURGERY HISTORY AND PHYSICAL [...] Take 15 mg by mouth nightl y. [place]-3 Fatty Acids (FISH OIL CONCENTRATE) 1000 MG [...] has no apparent deficits with short or correction memory. CRANIAL NERVES: II: Acuity is intact. [...] 5 5 Ulnar Intrinsics 5 5 Senior Asic Engineer Strength 5 5 Hip Flexion 5 [...] [place] | | | | | | [address] | | | | | | | [...]
--- OUTSIDE RECORDS SUMMARY | ~2019-09-18 | XMS | Encounter Summary ---
Demographics + + + | Address | [address] | | | [place] [address] | + + + | Home Phone [...] [place], [place] | | | | | [address] | | + + + + + Care Team Providers + +------+ + | Care Prescription Clerk Lenses Name | Role | Phone | + +------+ + PCP | Unavailable | + +------+ + Encounter Details +--------+ + + + + | Date | Type | Department | Care Team | Description | +--------+ + + + + | 08/21/ | Hospital | [facility] | | | | 1996 | Encounter | MED CTR LABORATORY | | | | | | [address] | | | | | | [place] | | | | | | [address] | | | | | | [phone] | | | +--------+ + + + [...] | | | | [place] | | | | | | [address] | | | | | | | | +--------+---------+ + + + documented as of this encounter Visit Diagnoses Not on filedocumented in this encounter"
--- OUTSIDE RECORDS SUMMARY | ~2019-09-18 | XMS | Encounter Summary ---
Demographics + + + | Address | [address] | | | [place] [address] | + + + | Home Phone [...] [place], [place] | | | | | [address] | | + + + + + Care Team Providers + +------+ + | Care Executive Administrator Name | Role | Phone | [...] [address] | | | | | [place] | [address] [place], [place] | | | | | [place] [address] | [address] | | | | | [phone] | | | +--------+ + + + [...] [place] | | | | | | [address] | | | | | | | [...] - [facility] | [facility] | | [address] | [facility] | | PROCEDURE: EPIDURAL STEROID | [...] Transcribed Date/Time: | | | 02/03/2012 18:45 Trailer Rental Clerk: <Electronically Signed | | | by Serafin [...] | Transcribed Date/Time: 02/03/2012 18:45 | | Trailer Rental Clerk: LaMAHIN | | <Electronically Signed by Serafin [...]
--- OUTSIDE RECORDS SUMMARY | ~2019-09-18 | XMS | Encounter Summary ---
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 ) | | | | [place] | | | | | | [address] | | | | | | [phone] | | | +--------+ + + + [...] [place] | | | | | | [address] | | | | | | | | +--------+---------+ + + + documented as of this encounter Visit Diagnoses Not on filedocumented in this encounter"
--- OUTSIDE RECORDS SUMMARY | ~2019-09-18 | XMS | Encounter Summary ---
Demographics + + + | Address | [address] | | | [place] [address] | + + + | Home Phone [...] [place] | | | | | [address] | | + + + + + Care Team Providers + +------+ + | Care Environmental Field Team Member Name | Role | Phone [...] + | 09/10/ | Documentati | [facility] | Katharine Moncada, | Other (urgent | | 2019 | on | CARDIOLOGY [place] | Technologist | report) | | | | [address] | | | | | | [place] | | | | | | [address] | | | | | | [phone] | | | +--------+ + + + [...] [place] | | | | | | [address] | | | | | | | | +--------+---------+ + + + documented as of this encounter Visit Diagnoses Not on filedocumented in this encounter"
--- OUTSIDE RECORDS SUMMARY | ~2019-09-18 | XMS | Encounter Summary ---
Demographics + + + | Address | [address] | | | [place] [address] | + + + | Home Phone [...] [place], [place] | | | | | [address] | | + + + + + Care Team Providers + +------+ + | Care Weaving Teacher Name | Role | Phone | + +------+ + PCP | Unavailable | + +------+ + Encounter Details +--------+ + + + + | Date | Type | Department | Care Team | Description | +--------+ + + + + | 06/30/ | Hospital | [facility] | | | | 2000 | Encounter | MED CTR EMERGENCY | | | | | | [address] | | | | | | [place] | | | | | | [address] | | | | | | [phone] | | | +--------+ + + + [...] | | | | | [place] | | | | | | [address] | | | | | | | | +--------+---------+ + + + documented as of this encounter Visit Diagnoses Not on filedocumented in this encounter"
--- OUTSIDE RECORDS SUMMARY | ~2019-09-18 | XMS | Encounter Summary ---
Demographics + + + | Address | [address] | | | [place] [address] | + + + | Home Phone [...] [place] | | | | | [address] | | + + + + + Care Team Providers + +------+ + | Care Metal Organ Pipe Maker Name | Role | Phone [...] + + | 06/28/ | Telephone | [facility] | Ashley Chávez | Talia (Patient | | 2019 | | CARDIOLOGY [place] Abad, Carriage Operator | called to cancel her | | | | [address] | | appointment) | | | | [place] | | | | | | [address] | | | | | | [phone] | | | +--------+ + + + [...] [place] | | | | | | [address] | | | | | | | | +--------+---------+ + + + documented as of this encounter Visit Diagnoses Not on filedocumented in this encounter"
--- OUTSIDE RECORDS SUMMARY | ~2019-09-18 | XMS | Encounter Summary ---
Demographics + + + | Address | [address] | | | [place] [address] | + + + | Home Phone [...] [place], [place] | | | | | [address] | | + + + + + Care Team Providers + +------+ + | Care Supervisor Finishing Name | Role | Phone | + +------+ + PCP | Unavailable | + +------+ + Encounter Details +--------+ + + + + | Date | Type | Department | Care Team | Description | +--------+ + + + + | 06/30/ | Hospital | [facility] | | | | 1999 - | Encounter | MED CTR GENERIC PSY | | | | | | CONV DEPT [address] | | | | 07/05/ | | [place], | | | | 1999 | | [place] [address] | | | | | | [phone] | | | +--------+ + + + [...] [place] | | | | | | [address] | | | | | | | | +--------+---------+ + + + documented as of this encounter Visit Diagnoses Not on filedocumented in this encounter"
--- OUTSIDE RECORDS SUMMARY | ~2019-09-18 | XMS | Encounter Summary ---
Demographics + + + | Address | [address] | | | [place] [address] | + + + | Home Phone [...] [place] | | | | | [address] | | + + + + + Care Team Providers + +------+ + | Care Paving Plant Operator Name | Role | Phone [...] + | 12/03/ | Refill | [facility] | Frandy Teresa, | Medication Refill | | 2014 | | NEUROSURGERY [address] | DO [address] | | | | | [address] | [address] [place], [place] | | | | | [place], [place] | [id number] | | | | | [address] | | | | | | [phone] | | | +--------+--------+ + + + [...] | | | | | [place] | | | | | | [address] | | | | | | | | +--------+---------+ + + + documented as of this encounter Visit Diagnoses Not on filedocumented in this encounter"
--- OUTSIDE RECORDS SUMMARY | ~2019-09-18 | XMS | Encounter Summary ---
Demographics + + + | Address | [address] | | | [place] [address] | + + + | Home Phone [...] [place] | | | | | [address] | | + + + + + Care Team Providers + +------+ + | Care Mowing Machine Operator Name | Role | Phone [...] + + | 08/16/ | Telephone | [facility] | Ashley Chávez | Other (Called to | | 2018 | | CARDIOLOGY [place] | Pollo, Document Advisor | tell patient what | | | | [address] | | Nicholas said. ) | | | | [address] | | | | | | [place] | | | | | | [address] | | | | | | [phone] | | | +--------+ + + + [...] [place] | | | | | | [address] | | | | | | | | +--------+---------+ + + + documented as of this encounter Visit Diagnoses Not on filedocumented in this encounter"
--- OUTSIDE RECORDS SUMMARY | ~2019-09-18 | XMS | Encounter Summary ---
Demographics + + + | Address | [address] | | | [place] [address] | + + + | Home Phone [...] [place] | | | | | [address] | | + + + + + [...] + | 09/26/ | Refill | [facility] | Frandy Teresa, | Medication Refill | | 2013 | | NEUROSURGERY [address] | DO [address] | | | | | [address] | [address] [place], [place] | | | | | [place], [place] | [id number] | | | | | [address] | | | | | | [phone] | | | +--------+--------+ + + + [...] | | | | | [place] | | | | | | [address] | | | | | | | | +--------+---------+ + + + documented as of this encounter Visit Diagnoses Not on filedocumented in this encounter"
--- OUTSIDE RECORDS SUMMARY | ~2019-09-18 | XMS | Encounter Summary ---
Demographics + + + | Address | [address] | | | [place] [address] | + + + | Home Phone [...] [place] | | | | | [address] | | + + + + + Care Team Providers + +------+ + | Care Gas Furnace Installer Name | Role | Phone | [...] + + | 07/10/ | Telephone | [facility] | Frandy Teresa, | Imaging Only (1 year | | 2014 | | NEUROSURGERY [address] | [address] | x-ray ) | | | | [address] | [address] [place], [place] | | | | | [place], [place] | [id number] | | | | | [address] | | | | | | [phone] | | | +--------+ + + + [...] [place] | | | | | | [address] | | | | | | | | +--------+---------+ + + + documented as of this encounter Visit Diagnoses Not on filedocumented in this encounter"
--- OUTSIDE RECORDS SUMMARY | ~2019-09-18 | XMS | Encounter Summary ---
Demographics + + + | Address | [address] | | | [place] [address] | + + + | Home Phone [...] [place] | | | | | [address] | | + + + + + Care Team Providers + +------+ + | Care Vocal Performer Name | Role | Phone | [...] [place] | | | | | | [address] | | | | | | [phone] | | | +--------+ + + + [...] [place] | | | | | | [address] | | | | | | | | +--------+---------+ + + + documented as of this encounter Visit Diagnoses Not on filedocumented in this encounter"
--- OUTSIDE RECORDS SUMMARY | ~2019-09-18 | XMS | Encounter Summary ---
Demographics + + + | Address | [address] | | | [place] [address] | + + + | Home Phone [...] [place] | | | | | [address] | | + + + + + Care Team Providers + +------+ + | Care Head Gauge Unit Operator Name | Role | Phone [...] + + | 08/24/ | Documentati | [facility] | Katharine Moncada, | Other (urgent | | 2019 | on | CARDIOLOGY [place] | Technologist | report) | | | | [address] | | | | | | [place] | | | | | | [address] | | | | | | [phone] | | | +--------+ + + + [...] [place] | | | | | | [address] | | | | | | | | +--------+---------+ + + + documented as of this encounter Visit Diagnoses Not on filedocumented in this encounter"
--- OUTSIDE RECORDS SUMMARY | ~2019-09-18 | XMS | Encounter Summary ---
Demographics + + + | Address | [address] | | | [place] [address] | + + + | Home Phone [...] [place] | | | | | [address] | | + + + + + Care Team Providers + +------+ + | Care Parachute/Combatant Diver Officer Name | Role | Phone | [...] + | 07/19/ | Telephone | [facility] | Frandy Teresa, | Appointment | | 2013 | | NEUROSURGERY [address] | DO [address] | | | | | [address] | [address] [place], [place] | | | | | [place], [place] | [address] | | | | | [address] | | | | | | [phone] | | | +--------+ + + + [...] [place] | | | | | | [address] | | | | | | | | +--------+---------+ + + + documented as of this encounter Visit Diagnoses Not on filedocumented in this encounter"
--- OUTSIDE RECORDS SUMMARY | ~2019-09-18 | XMS | Encounter Summary ---
Demographics + + + | Address | [address] | | | [place] [address] | + + + | Home Phone [...] [place] | | | | | [address] | | + + + + + Care Team Providers + +------+ + | Care Emergency Department Name | Role | Phone | [...] + + | 08/14/ | Documentati | [facility] | Katharine Moncada, | Other (urgent | | 2019 | on | CARDIOLOGY [place] | Technologist | report) | | | | [address] | | | | | | [place] | | | | | | [address] | | | | | | [phone] | | | +--------+ + + + [...] [place] | | | | | | [address] | | | | | | | | +--------+---------+ + + + documented as of this encounter Visit Diagnoses Not on filedocumented in this encounter"
--- OUTSIDE RECORDS SUMMARY | ~2019-09-18 | XMS | Encounter Summary ---
Demographics + + + | Address | [address] | | | [place] [address] | + + + | Home Phone [...] [place], [place] | | | | | [address] | | + + + + + Care Team Providers + +------+ + | Care Straight Line Edger Name | Role | Phone | + +------+ + PCP | Unavailable | + +------+ + Encounter Details +--------+ + + + + | Date | Type | Department | Care Team | Description | +--------+ + + + + | 01/06/ | Hospital | [facility] | | | | 1992 | Encounter | MED CTR LABORATORY | | | | | | [address] | | | | | | [place] | | | | | | [address] | | | | | | [phone] | | | +--------+ + + + [...] | | | | | [place] | | | | | | [address] | | | | | | | | +--------+---------+ + + + documented as of this encounter Visit Diagnoses Not on filedocumented in this encounter"
--- OUTSIDE RECORDS SUMMARY | ~2019-09-18 | XMS | Encounter Summary ---
Demographics + + + | Address | [address] | | | [place] [address] | + + + | Home Phone [...] [place] | | | | | [address] | | + + + + + Care Team Providers + +------+ + | Care Exchange Engineer Name | Role | Phone | [...] + | 08/26/ | Refill | [facility] | Frandy Teresa, | Medication Refill | | 2013 | | NEUR[address]UR[address] | DO [address] | | | | | [address] | [address] [place], [place] | | | | | [place], [place] | [address] | | | | | [address] | | | | | | [phone] | | | +--------+--------+ + + + [...] | | | | | [place] | | | | | | [address] | | | | | | | | +--------+---------+ + + + documented as of this encounter Visit Diagnoses Not on filedocumented in this encounter"
--- OUTSIDE RECORDS SUMMARY | ~2019-09-18 | XMS | Encounter Summary ---
Demographics + + + | Address | [address] | | | [place] [address] | + + + | Home Phone [...] [place], [place] | | | | | [address] | | + + + + + Care Team Providers + +------+ + | Care News Production Assistant Name | Role | Phone | + +------+ + PCP | Unavailable | + +------+ + Encounter Details +--------+ + + + + | Date | Type | Department | Care Team | Description | +--------+ + + + + | 12/24/ | Hospital | [facility] | | | | 1998 | Encounter | MED CTR XRAY [address] | | | | | | [place] | | | | | | [place] [address] | | | | | | [phone] | | | +--------+ + + + [...] | | | | | [place] | | | | | | [address] | | | | | | | | +--------+---------+ + + + documented as of this encounter Visit Diagnoses Not on filedocumented in this encounter"
--- OUTSIDE RECORDS SUMMARY | ~2019-09-18 | XMS | Encounter Summary ---
Demographics + + + | Address | [address] | | | [place] [address] | + + + | Home Phone [...] [place], [place] | | | | | [address] | | + + + + + Care Team Providers + +------+ + | Care Anode Adjuster Name | Role | Phone | + +------+ + PCP | Unavailable | + +------+ + Encounter Details +--------+ + + + + | Date | Type | Department | Care Team | Description | +--------+ + + + + | 06/30/ | Hospital | [facility] | | | | 2000 | Encounter | MED CTR EMERGENCY | | | | | | [address] | | | | | | [place] | | | | | | [address] | | | | | | [phone] | | | +--------+ + + + [...] | | | | | [place] | | | | | | [address] | | | | | | | | +--------+---------+ + + + documented as of this encounter Visit Diagnoses Not on filedocumented in this encounter"
--- OUTSIDE RECORDS SUMMARY | ~2019-09-18 | XMS | Encounter Summary ---
Demographics + + + | Address | [address] | | | [place] [address] | + + + | Home Phone [...] [place] | | | | | [address] | | + + + + + Care Team Providers + +------+ + | Care Contact Lens Blocker And Cutter Name | Role | Phone | [...] [address] | [address] [place], [place] | | | | | [place], [place] | [id number] | | | | | [address] | | | | | | [phone] | | | +--------+ + + + [...] | | | | | [place] | | | | | | [address] | | | | | | | | +--------+---------+ + + + documented as of this encounter Visit Diagnoses Not on filedocumented in this encounter"
--- OUTSIDE RECORDS SUMMARY | ~2019-09-18 | XMS | Clinical Summary ---
Demographics + + + | Address | [address] | | | [place] [address] | + + + | Home Phone [...] + | Author | [facility] (Historical as of | | | 06-09-19) | + + + | Organization | [facility] (Historical as of | | [...] Providers + +------+ + | Care Fishing Rod Trimmer Name | Role | Phone | [...] | | Activ | | (VITAMIN D3) [id number] | a week. | | | | [...] +------+-------+ + | MEDICARE | MEDICA | [id number] | | | [address] | | | RE | | | | [place]OG[place] [address] | | | IP-OP | | | [...] | [birth year] | Home: | [address] | | | al/Fam | | 1955 | [phone] [address] [place] | | | [place] | | | [phone] | [address] | + +--------+ +--------+ + +
--- OUTSIDE RECORDS SUMMARY | ~2019-09-18 | XMS | Encounter Summary ---
Demographics + + + | Address | [address] | | | [place] [address] | + + + | Home Phone [...] + | Araceli Sibley | ECON | [place] | | | | | [address] | | + + + + + Care Team Providers + +------+ + | Care Department Store Manager Name | Role | Phone | [...] | | | | | mellitus, | [address] | [place] | | | | | controlled | Phone: | [address] | | | | | (HCC) | [phone] | Phone: | | | | | History of | Fax: | [phone] | | | | | gastric | [phone] | Fax: | | | | | restrictive | | [phone] | | | | | surgery | [...] | | | y Type 2 | [address] | [place] | | | | | diabetes | Phone: | [address] | | | | | mellitus, | [phone] | Phone: | | | | | controlled | Fax: | [phone] | | | | | (HCC) | [phone] | Fax: | | | | | Obesity, | | [phone] | | | | | Class III, [...] | | FORTUNATO & Katharine BUCIO in [place]. | + + + | Other | [...] + | 03/06/ | Office | [facility] | Katharine Cardona PA-C | Hypothyroidism due | | 2014 | Visit | MEDICINE [address] | [address] [facility] | to acquired atrophy | | | | Street [place] | [place] [address] | of thyroid (Primary | | | | [place] [address] | [phone] | Dx); Essential | | | | [phone] | | hypertension; Iron | | | [...] | | | | | | ([facility]); Environmental | | | | | [...] | | | | | obesity) ([facility]); | | | | | | Type 2 diabetes | | | | | | mellitus, controlled | | | | | | ([facility]); Preventative | | | | | [...] t be different from the original. Ask crobo if they think it might be helpful [...] Cont your meds as prescribed. F/U with crobo as scheduled Neuropathy Continue gabapentin. May consider increase if pain is not controlled. May benefit from switching from Paxil to one of the SNRIs or TCAs for analgesic effects, holly manju, she is doing so well on her current regimen it may not be worth making any changes an d find alternate ways to deal with the pain. Would be worth discussing with crobo Psych Back Pain Will refer to water therapy (aqua fitness) at [facility] as request ed. [...] procedures 4. Schizoaffective disorder, bipolar type ([facility]) 5. Neuropathy Vitamin B-12 6. BACK PAIN, LUMBAR, WITH RADICULOPATHY Ambulatory referral to Physical Therapy 7. ROGERS on CPAP 8. Stroke ([facility]) 9. Environmental and seasonal allergies fluticasone (FLONASE) 50 mcg/nasal spray 10. Gastroesophageal reflux disease without esophagitis dexlansoprazole (DEXILANT) 60 mg D R capsule 11. History of gastric restrictive surgery Vitamin D, 25-Hydroxy Nutrition Services - External - AMB Referral 12. Obesity, Class III, BMI 40-49.9 (morbid obesity) ([facility]) Ambulatory referral to Physical Therapy Nutrition Services - External - AMB Referral 13. Type 2 diabetes mellitus, controlled ([facility]) Ambulatory referral to Physical Therapy Nutrition [...] Cont your meds as prescribed. F/U with crobo as scheduled Neuropathy Continue gabapentin. May consider [...] the pain. Would be worth discussing with crobo professional. Back Pain Will refer to water therapy (aqua fitness) at [facility] as request ed. Cont home exercise, [...] plan. The above note was dictated using Desall voice recognition software. It may have not been proofread in entirety. Minor errors in grammar may occur. CHIEF COMPLAINT Chief Complaint Patient presents with Establish Care Presents to establish care. Former patient of Natalee BUCIO & Katharine BUCIO in [place]. Other Possible stroke January 2015. Is now [...] auditory, at 36. 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 She is now very well controlled on Saphris, Depakote, and Paxi l. She is followed by [facility] [place] in [place]. She has DM2 that is well controlled [...] worked up by steve rowe, Dr [place], [place]. More recently, she presented to ED with [...] Laterality: N/A; Surgeon: Frandy castellanos DO; Location: [facility] OR SOCIAL HISTORY History [...] mg by mouth Daily. Cholecalciferol (VITAMIN D-3) 62712 units CAPS Oral Take 50,000 Units by [...] Oral Take 10 mg by mouth nightly. [place]-3 Fatty Acids (FISH OIL CONCENTRATE) 1000 MG [...] [place] | | | | | | [id number] | | | | | | | [...] | | | | | controlled ([facility]) | | | | | | Obesity, Class III, | | | | | | BMI 40-49.9 (morbid | | | | | | obesity) ([facility]) | | + + +--------+ + + | Nutrition Services - | Outpatient | Routin | Iron deficiency | Ordered: 03/06/2015 | | External - AMB | Referral | e | anemia Type 2 | | | Referral | | | diabetes mellitus, | | | | | | controlled ([facility]) | | | | | | History of gastric | | | | | | restrictive surgery | | | | | | Obesity, Class III, | | | | | | BMI 40-49.9 (morbid | | | | | | obesity) ([facility]) | | + + +--------+ + [...] mL/min/1.73m2 | [facility] | | | DANISH | RATE,ESTIMATED | | MEDICAL | | | | mL/min/1.36e6Whma than | | CENTER - | | [...] [address] | [place] | [phone] | | [facility] | | [address] | | | - LABORATORY | | [...] | Type 2 diabetes mellitus, controlled ([facility]) Type II or unspecified type diabetes | | mellitus without mention of complication, not stated as uncontrolled | + + | Preventative health care Routine general medical examination at a health care | | facility | + + documented in this encounter
--- OUTSIDE RECORDS SUMMARY | ~2019-09-18 | XMS | Encounter Summary ---
Demographics + + + | Address | [address] | | | [place] [address] | + + + | Home Phone [...] [place] | | | | | [address] | | + + + + + Care Team Providers + +------+ + | Care Senior Actuarial Analyst Name | Role | Phone | [...] + + | 06/28/ | Telephone | [facility] | Ashley Chávez | Talia (Patient | | 2019 | | CARDIOLOGY [place], Direct Service Provider | called to cancel her | | | | [address] | | appointment) | | | | [place] | | | | | | [address] | | | | | | [phone] | | | +--------+ + + + [...] [place] | | | | | | [address] | | | | | | | | +--------+---------+ + + + documented as of this encounter Visit Diagnoses Not on filedocumented in this encounter"
--- OUTSIDE RECORDS SUMMARY | ~2019-09-18 | XMS | Encounter Summary ---
Demographics + + + | Address | [address] | | | [place] [address] | + + + | Home Phone [...] [place] | | | | | [address] | | + + + + + Care Team Providers + +------+ + | Care Pressfitter Name | Role | Phone | + [...] [address] | [address] [place], [place] | Anxiety; Anemia; | | | | [place], [place] | [address] | Irregular heartbeat; | | | | [address] | | Depression; | | | | [phone] | | Migraine; | | | | [...] | | | | | | [facility] [facility] | | | | | | [address] | | | | | | | [...]
--- OUTSIDE RECORDS SUMMARY | ~2019-09-18 | XMS | Encounter Summary ---
Demographics + + + | Address | [address] | | | [place] [address] | + + + | Home Phone [...] [place] | | | | | [address] | | + + + + + Care Team Providers + +------+ + | Care Pulper Operator Name | Role | Phone | [...] + + | 09/10/ | Documentati | [facility] | Katharine Moncada, | Other (urgent | | 2019 | on | CARDIOLOGY [place] | Technologist | report) | | | | [address] | | | | | | [place] | | | | | | [address] | | | | | | [phone] | | | +--------+ + + + [...] [place] | | | | | | [address] | | | | | | | | +--------+---------+ + + + documented as of this encounter Visit Diagnoses Not on filedocumented in this encounter"
--- OUTSIDE RECORDS SUMMARY | ~2019-09-18 | XMS | Encounter Summary ---
Demographics + + + | Address | [address] | | | [place] [address] | + + + | Home Phone [...] [place] | | | | | [address] | | + + + + + Care Team Providers + +------+ + | Care Administration Dean Name | Role | Phone | + +------+ + | Natalee Andersen NP | PCP | | + +------+ + Encounter Details +--------+ + + + + | Date | Type | Department | Care Team | Description | +--------+ + + + + | 05/02/ | Hospital | [facility] | Frandy Teresa, | Back pain | | 2014 | Encounter | MED CTR XRAY [address] | DO [address] | | | | | [place] | [address] [place] | | | | | [place] [address] | [address] | | | | | [phone] | | | +--------+ + + + [...] + + + +---------+ + + | [place]-3 Fatty | Take 1,000 mg by | [...] | | | | | [place] | | | | | | [address] | | | | | | | [...] + | MISCELLANEOUS LAB | | | [phone] | + +---------+ + + | MISCELANIOUS LAB | | | [phone] | + +---------+ + + documented in this encounter Visit Diagnoses + + | Diagnosis | + + | Back pain Backache, unspecified | + + documented in this encounter"
--- OUTSIDE RECORDS SUMMARY | ~2019-09-18 | XMS | Encounter Summary ---
Demographics + + + | Address | [address] | | | [place] [address] | + + + | Home Phone [...] [place] | | | | | [address] | | + + + + + Care Team Providers + +------+ + | Care Fishing Floats Assembler Name | Role | Phone | + +------+ + | Natalee Andersen NP | PCP | | + +------+ + Encounter Details +--------+---------+ + + + | Date | Type | Department | Care Team | Description | +--------+---------+ + + + | 06/25/ | Surgery | [facility] | Frandy Teresa, | Canceled | | 2013 | | MED CTR OR INTRA OP | DO [address] | PROCEDURE NOT | | | | [address] | [address] [place], [place] | PERFORMED | | | | [place], [place] | [address] | | | | | [address] | | | | | | [phone] | | | +--------+---------+ + + + [...] + + + +---------+ + + | [place]-3 Fatty | Take 1,000 mg by | [...] | | | | | [place], [place] | | | | | | [id number] | | | | | | | [...] mL/min/1.73m2 | [facility] | | | EMIRATI | RATE,ESTIMATED | | MEDICAL | | | | mL/min/1.42q3Csyc than | | CENTER - | | [...] + | [facility] | [address] | [place] | [phone] | | [facility] | | [address] | | | - LABORATORY | | | | + + + + + | [facility] | [address] | [place] | | | [facility] | | [address] | | | - LABORATORY | | [...] + | [facility] | [address] | [place] | [phone] | | [facility] | | [address] | | | - LABORATORY | | | | + + + + + | [facility] | [address] | [place] | | | [facility] | | [address] | | | - LABORATORY | | [...] [address] | [place] | [phone] | | [facility] | | [address] | | | - LABORATORY | | | | + + + + + | [facility] | [address] | [place], [place] | | | [facility] | | [address] | | | - LABORATORY | | [...] [facility] | | [address] | | | - BLOOD BANK | [...] | + + + + + | [facility] | [address] | [place], [place] | [phone] | | [facility] | | [address] | | | - LABORATORY | | | | + + + + + | [facility] | [address] | [place], [place] | | | [facility] | | [address] | | | - LABORATORY | | [...]
--- OUTSIDE RECORDS SUMMARY | ~2019-09-18 | XMS | Encounter Summary ---
Demographics + + + | Address | [address] | | | [place] [address] | + + + | Home Phone [...] [place], [place] | | | | | [address] | | + + + + + Care Team Providers + +------+ + | Care Button Tufter Name | Role | Phone | + +------+ + PCP | Unavailable | + +------+ + Encounter Details +--------+ + + + + | Date | Type | Department | Care Team | Description | +--------+ + + + + | 06/19/ | Hospital | [facility] | | | | 1991 - | Encounter | MED CTR GENERIC PSY | | | | | | CONV DEPT [address] | | | | 06/24/ | | [place], | | | | 1991 | | [place] [address] | | | | | | [phone] | | | +--------+ + + + [...] [place] | | | | | | [address] | | | | | | | | +--------+---------+ + + + documented as of this encounter Visit Diagnoses Not on filedocumented in this encounter"
--- OUTSIDE RECORDS SUMMARY | ~2019-09-18 | XMS | Encounter Summary ---
Demographics + + + | Address | [address] | | | [place] [address] | + + + | Home Phone [...] [place], [place] | | | | | [address] | | + + + + + Care Team Providers + +------+ + | Care Zookeeper Name | Role | Phone | + +------+ + PCP | Unavailable | + +------+ + Encounter Details +--------+ + + + + | Date | Type | Department | Care Team | Description | +--------+ + + + + | 02/22/ | Hospital | [facility] | | | | 1996 | Encounter | MED CTR EMERGENCY | | | | | | [address] | | | | | | [place] | | | | | | [address] | | | | | | [phone] | | | +--------+ + + + [...] | | | | | [place] | | | | | | [address] | | | | | | | | +--------+---------+ + + + documented as of this encounter Visit Diagnoses Not on filedocumented in this encounter"
--- OUTSIDE RECORDS SUMMARY | ~2019-09-18 | XMS | Encounter Summary ---
Demographics + + + | Address | [address] | | | [place] [address] | + + + | Home Phone [...] [place], [place] | | | | | [address] | | + + + + + Care Team Providers + +------+ + | Care Meteorology Instructor Name | Role | Phone | + +------+ + PCP | Unavailable | + +------+ + Encounter Details +--------+ + + + + | Date | Type | Department | Care Team | Description | +--------+ + + + + | 07/23/ | Hospital | [facility] | | | | 1992 - | Encounter | MED CTR GENERIC PSY | | | | | | CONV DEPT [address] | | | | 07/28/ | | [place], | | | | 1992 | | [place] [address] | | | | | | [phone] | | | +--------+ + + + [...] [place] | | | | | | [address] | | | | | | | | +--------+---------+ + + + documented as of this encounter Visit Diagnoses Not on filedocumented in this encounter"
--- OUTSIDE RECORDS SUMMARY | ~2019-09-18 | XMS | Encounter Summary ---
Demographics + + + | Address | [address] | | | [place] [address] | + + + | Home Phone [...] [place] | | | | | [address] | | + + + + + Care Team Providers + +------+ + | Care Satin Finisher Name | Role | Phone | + +------+ + PCP | Unavailable | + +------+ + Encounter Details +--------+ + + + + | Date | Type | Department | Care Team | Description | +--------+ + + + + | 07/03/ | Office | General Internal | Note, Outpatient | Progress Note | | 1996 | Visit-Trans | Medicine [address] | Clinic | | | | isabelle | [address] | | | | | | Mailcode: L475 | | | | | | Outpatient Clinic | | | | | | [address] | | | | | | [place], [place] | | | | | | [address] | | | | | | [phone] | | | +--------+ + + + [...] as of this encounter Progress Notes Interface, Noxious Weeds And Pest Inspector In - 12/11/2006 5:03 AM [place] [...]
--- OUTSIDE RECORDS SUMMARY | ~2019-09-18 | XMS | Encounter Summary ---
Demographics + + + | Address | [address] | | | [place] [address] | + + + | Home Phone [...] [place], [place] | | | | | [address] | | + + + + + Care Team Providers + +------+ + | Care Environmental Services Worker Name | Role | Phone | + +------+ + PCP | Unavailable | + +------+ + Encounter Details +--------+ + + + + | Date | Type | Department | Care Team | Description | +--------+ + + + + | 06/17/ | Hospital | [facility] | | | | 1991 - | Encounter | MED CTR GENERIC PSY | | | | | | CONV DEPT [address] | | | | 06/18/ | | [place], | | | | 1991 | | [place] [address] | | | | | | [phone] | | | +--------+ + + + [...] [place] | | | | | | [address] | | | | | | | | +--------+---------+ + + + documented as of this encounter Visit Diagnoses Not on filedocumented in this encounter"
--- OUTSIDE RECORDS SUMMARY | ~2019-09-18 | XMS | Encounter Summary ---
Demographics + + + | Address | [address] | | | [place] [address] | + + + | Home Phone [...] [place], [place] | | | | | [address] | | + + + + + Care Team Providers + +------+ + | Care Senior Analysis Specialist Name | Role | Phone | + +------+ + PCP | Unavailable | + +------+ + Encounter Details +--------+ + + + + | Date | Type | Department | Care Team | Description | +--------+ + + + + | 01/26/ | Hospital | [facility] | Dale, Heath E A, | | | 2012 | Encounter | MED CTR XRAY [address] | MD [address] | | | | | [place] | [place] | | | | | [place] [address] | [address] | | | | | [phone] | | | +--------+ + + + [...] [place] | | | | | | [address] | | | | | | | [...] Center [place] [facility] | [facility] | | [address] | [facility] | | BILATERAL KNEES, THREE VIEWS: [...] Transcribed | | | Date/Time: 01/27/2012 17:18 Sneller Hand: | | | <Electronically Signed by Willie Perry MD> 01/27/12 8584 | | + + + + + | Procedure Note | + + | Juan, Rad Conversion - 11/30/2013 5:03 PM [facility] | | Diagnostic Imaging Department [address] [place] [address] | | BILATERAL KNEES, THREE VIEWS: 01/27/2012 [...] 17:12 | |Transcribed Date/Time: 01/27/2012 17:18 | |Sneller Hand: | |<Electronically Signed by Willie Perry MD> 01/27/12 565 | + + + +---------+ + + [...]
--- OUTSIDE RECORDS SUMMARY | ~2019-09-18 | XMS | Encounter Summary ---
Demographics + + + | Address | [address] | | | [place] [address] | + + + | Home Phone [...] [place] | | | | | [address] | | + + + + + Care Team Providers + +------+ + | Care Professor Of Early Childhood Education Name | Role | Phone | [...] [address] | [address] [place], [place] | | | | | [place], [place] | [id number] | | | | | [address] | | | | | | [phone] | | | +--------+ + + + [...] | | | | | [place] | | | | | | [address] | | | | | | | | +--------+---------+ + + + documented as of this encounter Visit Diagnoses Not on filedocumented in this encounter"
--- OUTSIDE RECORDS SUMMARY | ~2019-09-18 | XMS | Encounter Summary ---
Demographics + + + | Address | [address] | | | [place] [address] | + + + | Home Phone [...] [place] | | | | | [address] | | + + + + + Care Team Providers + +------+ + | Care Crowd Controller Name | Role | Phone | + +------+ + | Natalee Andersen NP | PCP | | + +------+ + Encounter Details +--------+ + + + + | Date | Type | Department | Care Team | Description | +--------+ + + + + | 06/25/ | Hospital | [facility] | Frandy Teresa, | Acquired | | 2014 | Encounter | MED CTR XRAY [address] | DO [address] | spondylolisthesis | | | | [place] | [address] [place], [place] | | | | | [place] [address] | [address] | | | | | [phone] | | | +--------+ + + + [...] + + + +---------+ + + | [place]-3 Fatty | Take 1,000 mg by | [...] [place] | | | | | | [address] | | | | | | | | +--------+---------+ + + + documented as of this encounter Visit Diagnoses + + | Diagnosis | + + | Acquired spondylolisthesis | + + documented in this encounter"
--- OUTSIDE RECORDS SUMMARY | ~2019-09-18 | XMS | Encounter Summary ---
Demographics + + + | Address | [address] | | | [place] [address] | + + + | Home Phone [...] [place] | | | | | [address] | | + + + + + Care Team Providers + +------+ + | Care Box Annealer Name | Role | Phone | + [...] | [address] [place] | [place], [address] | | | | | [address] [place], [place] | [place], [place] | | | | | [address] | [address] | | | | | [phone] | | | +--------+ + + + [...] [place] | | | | | | [address] | | | | | | | | +--------+---------+ + + + documented as of this encounter Visit Diagnoses Not on filedocumented in this encounter"
--- OUTSIDE RECORDS SUMMARY | ~2019-09-18 | XMS | Encounter Summary ---
Demographics + + + | Address | [address] | | | [place] [address] | + + + | Home Phone [...] [place] | | | | | [address] | | + + + + + Care Team Providers + +------+ + | Care Socket Welder Helper Name | Role | Phone | [...] + | 11/25/ | Telephone | [facility] | Frandy Teresa, | Medication Refill | | 2015 | | NEUROSURGERY [address] | DO [address] | Assistance | | | | [address] | [address] [place], [place] | | | | | [place], [place] | [address] | | | | | [address] | | | | | | [phone] | | | +--------+ + + + [...] | | | | | [place] | | | | | | [address] | | | | | | | | +--------+---------+ + + + documented as of this encounter Visit Diagnoses Not on filedocumented in this encounter"
--- OUTSIDE RECORDS SUMMARY | ~2019-09-18 | XMS | Encounter Summary ---
Demographics + + + | Address | [address] | | | [place] [address] | + + + | Home Phone [...] [place] | | | | | [address] | | + + + + + Care Team Providers + +------+ + | Care Conservator Artifacts Name | Role | Phone | + +------+ + | Adriano Patrick MD | PCP | | + +------+ + Encounter Details +--------+ + + + + | Date | Type | Department | Care Team | Description | +--------+ + + + + | 05/16/ | Orders Only | [facility] | Provider, | | | 2018 | | SYSTEM GENERIC OP | MD [address] | | | | | CONVERSION [address] | [address] | | | | | [address] [place], [place] | [place] [address] | | | | | [address] | | | | | | [phone] | | | +--------+ + + + [...] | | | | | [place], [place] | | | | | | [address] | | | | | | | | +--------+---------+ + + + documented as of this encounter Visit Diagnoses Not on filedocumented in this encounter"
--- OUTSIDE RECORDS SUMMARY | ~2019-09-18 | XMS | Encounter Summary ---
Demographics + + + | Address | [address] | | | [place] [address] | + + + | Home Phone [...] [place] | | | | | [address] | | + + + + + [...] Rd | | | | | | [place], [place] | | | | | | [address] | | | +--------+ + + + [...]
--- OUTSIDE RECORDS SUMMARY | ~2019-09-18 | XMS | Encounter Summary ---
Demographics + + + | Address | [address] | | | [place] [address] | + + + | Home Phone [...] [place] | | | | | [address] | | + + + + + Care Team Providers + +------+ + | Care Maintenance Service Dispatcher Name | Role | Phone | + +------+ + | Basim Bolanos MD | PCP | | + +------+ + Encounter Details +--------+ + + + + | Date | Type | Department | Care Team | Description | +--------+ + + + + | 02/22/ | Abstract | [facility] [place] | [facility], | | | 2012 | | GASTROENTEROLOGY | FORTUNATO Thomas [address] | | | | | [address] [place] | Walker, [address] | | | | | [address] [place], [place] | [place], [place] | | | | | [address] | [address] | | | | | [phone] | | | +--------+ + + + [...] [place] | | | | | | [address] | | | | | | | | +--------+---------+ + + + documented as of this encounter Visit Diagnoses Not on filedocumented in this encounter"
--- OUTSIDE RECORDS SUMMARY | ~2019-09-18 | XMS | Encounter Summary ---
Demographics + + + | Address | [address] | | | [place] [address] | + + + | Home Phone [...] Organization | [facility] [...] [place], [place] | | | | | [address] | | + + + + + Care Team Providers + +------+ + | Care Asp Net Programmer Name | Role | Phone | [...] [place] | | | | | | [address] | | | | | | [phone] | | | +--------+ + + + [...] | | | | [place] | | | | | | [address] | | | | | | | | +--------+---------+ + + + documented as of this encounter Visit Diagnoses Not on filedocumented in this encounter"
--- OUTSIDE RECORDS SUMMARY | ~2019-09-18 | XMS | Encounter Summary ---
Demographics + + + | Address | [address] | | | [place] [address] | + + + | Home Phone [...] [place] | | | | | [address] | | + + + + + Care Team Providers + +------+ + | Care Belly Dancer Name | Role | Phone | [...] [place] | | | | | | [address] | | | | | | [phone] | | | +--------+ + + + [...] [place] | | | | | | [address] | | | | | | | | +--------+---------+ + + + documented as of this encounter Visit Diagnoses Not on filedocumented in this encounter"
--- OUTSIDE RECORDS SUMMARY | ~2019-09-18 | XMS | Encounter Summary ---
Demographics + + + | Address | [address] | | | [place] [address] | + + + | Home Phone [...] [place] | | | | | [address] | | + + + + + Care Team Providers + +------+ + | Care Newspaper Photo Editor Name | Role | Phone | [...] 03/06/ | Office | [facility] | Deon Gonzales | ROGERS (obstructive | | 2012 | Visit | SLEEP DISORDER [address] | MD [address] | sleep apnea) | | | | [address] [place] [place] | [address] [place] | (Primary Dx); | | | | [place] [address] | [place] [address] | Sleepiness | | | | [phone] | [phone] | | | | | | | [...] differen t from the original. 03/06/13 1000 [place] Sleepiness Scale Sitting and reading 3 Watching [...] by mouth Daily., Disp: , Rfl: ; [place]-3 Fatty Acids (FISH OIL CONCENTRATE) 1000 MG [...] | | | | | [place] | | | | | | [id number] | | | | | | | | +--------+---------+ + + + documented as of this encounter Visit Diagnoses + + | Diagnosis | + + | ROGERS (obstructive sleep apnea) - Primary Obstructive sleep apnea (adult) (pediatric) | + + | Sleepiness Other alteration of consciousness | + + documented in this encounter"
--- OUTSIDE RECORDS SUMMARY | ~2019-09-18 | XMS | Encounter Summary ---
Demographics + + + | Address | [address] | | | [place] [address] | + + + | Home Phone [...] [place] | | | | | [address] | | + + + + + [...] | | | | | | | [address] | | | | | | | Phone: | | | | | | | [phone] | | | | | | | Fax: | | | | | | | [phone] | | +--------+ + + + + + Reason for Visit + + + | Reason | Comments | + + + | Follow-up | 4 Week PO | + + + Encounter Details +--------+---------+ + + + | Date | Type | Department | Care Team | Description | +--------+---------+ + + + | 07/25/ | Office | [facility] | Frandy Teresa, | Lumbar spondylosis | | 2013 | Visit | NEUROSURGERY [address] | DO [address] | (Primary Dx); S/P | | | | [address] | [address] [place], [place] | lumbar fusion | | | | [place], [place] | [address] | | | | | [address] | | | | | | [phone] | | | +--------+---------+ + + + [...] [facility] [address] [place], [place] [address] FAX: NEUROSURGERY SURGICAL FOLLOW-UP CHIEF COMPLAINT: Chief [...] Take 15 mg by mouth nightl y. [place]-3 Fatty Acids (FISH OIL CONCENTRATE) 1000 MG [...] [place] | | | | | | [id number] | | | | | | | [...] + | MISCELLANEOUS LAB | | | [phone] | + +---------+ + + | MISCELANIOUS LAB | | | [phone] | + +---------+ + + documented in this encounter Visit Diagnoses + + | Diagnosis | + + | Lumbar spondylosis - Primary Lumbosacral spondylosis without myelopathy | + + | S/P lumbar fusion Arthrodesis status | + + documented in this encounter
--- OUTSIDE RECORDS SUMMARY | ~2019-09-18 | XMS | Encounter Summary ---
Demographics + + + | Address | [address] | | | [place] [address] | + + + | Home Phone [...] [place] | | | | | [address] | | + + + + + Care Team Providers + +------+ + | Care Hydro Plant Technician Name | Role | Phone [...] [place] | | | | | | [address] | | | | | | [phone] | | | +--------+ + + + [...] [place] | | | | | | [address] | | | | | | | | +--------+---------+ + + + documented as of this encounter Visit Diagnoses Not on filedocumented in this encounter"
--- OUTSIDE RECORDS SUMMARY | ~2019-09-18 | XMS | Encounter Summary ---
Demographics + + + | Address | [address] | | | [place] [address] | + + + | Home Phone [...] [place], [place] | | | | | [address] | | + + + + + Care Team Providers + +------+ + | Care Medical Records Director Name | Role | Phone | + +------+ + PCP | Unavailable | + +------+ + Encounter Details +--------+ + + + + | Date | Type | Department | Care Team | Description | +--------+ + + + + | 09/23/ | Hospital | [facility] | | | | 1994 | Encounter | MED CTR LABORATORY | | | | | | [address] | | | | | | [place] | | | | | | [address] | | | | | | [phone] | | | +--------+ + + + [...] | | | | | [place] | | | | | | [address] | | | | | | | | +--------+---------+ + + + documented as of this encounter Visit Diagnoses Not on filedocumented in this encounter"
--- OUTSIDE RECORDS SUMMARY | ~2019-09-18 | XMS | Encounter Summary ---
Demographics + + + | Address | [address] | | | [place] [address] | + + + | Home Phone [...] [place], [place] | | | | | [address] | | + + + + + Care Team Providers + +------+ + | Care Jewellery Designer Name | Role | Phone | + +------+ + PCP | Unavailable | + +------+ + Encounter Details +--------+ + + + + | Date | Type | Department | Care Team | Description | +--------+ + + + + | 02/02/ | Hospital | [facility] | | | | 1997 - | Encounter | MED CTR GENERIC PSY | | | | | | CONV DEPT [address] | | | | 02/05/ | | [address] [place], | | | | 1997 | | [place] [address] | | | | | | [phone] | | | +--------+ + + + [...] [place] | | | | | | [address] | | | | | | | | +--------+---------+ + + + documented as of this encounter Visit Diagnoses Not on filedocumented in this encounter"
--- OUTSIDE RECORDS SUMMARY | ~2019-09-18 | XMS | Encounter Summary ---
Demographics + + + | Address | [address] | | | [place] [address] | + + + | Home Phone [...] [place] | | | | | [address] | | + + + + + Care Team Providers + +------+ + | Care Cone Worker Name | Role | Phone | [...] [place] | | | | | | [address] | | | | | | [phone] | | | +--------+ + + + [...] [place] | | | | | | [address] | | | | | | | | +--------+---------+ + + + documented as of this encounter Visit Diagnoses Not on filedocumented in this encounter"
--- OUTSIDE RECORDS SUMMARY | ~2019-09-18 | XMS | Encounter Summary ---
Demographics + + + | Address | [address] | | | [place] [address] | + + + | Home Phone [...] [place] | | | | | [address] | | + + + + + [...] | | [address] | [place] [address] | | | | | [place], [place] | [phone] | | | | | [address] | | | | | | [phone] | | | +--------+ + + + [...] [place] | | | | | | [address] | | | | | | | | +--------+---------+ + + + documented as of this encounter Visit Diagnoses Not on filedocumented in this encounter"
--- OUTSIDE RECORDS SUMMARY | ~2019-09-18 | XMS | Encounter Summary ---
Demographics + + + | Address | [address] | | | [place] [address] | + + + | Home Phone [...] [place] | | | | | [address] | | + + + + + Care Team Providers + +------+ + | Care Monument Stonecutter Name | Role | Phone | + [...] + + | 07/24/ | Telephone | [facility] | Ashley Chávez | Other (Patient is | | 2019 | | CARDIOLOGY [place] Abad, Power Generation Engineer | worried about paying | | | | [address] | | for monitor. ) | | | | [place] | | | | | | [address] | | | | | | [phone] | | | +--------+ + + + [...] [place] | | | | | | [address] | | | | | | | | +--------+---------+ + + + documented as of this encounter Visit Diagnoses Not on filedocumented in this encounter"
--- OUTSIDE RECORDS SUMMARY | ~2019-09-18 | XMS | Encounter Summary ---
Demographics + + + | Address | [address] | | | [place] [address] | + + + | Home Phone [...] [place] | | | | | [address] | | + + + + + Care Team Providers + +------+ + | Care Retail Pharmacy Manager Name | Role | Phone | + +------+ + PCP | Unavailable | + +------+ + Encounter Details +--------+ + + + + | Date | Type | Department | Care Team | Description | +--------+ + + + + | 07/03/ | Office | General Internal | Note, Outpatient | Progress Note | | 1996 | Visit-Trans | Medicine [address] | Clinic | | | | isabelle | [address] | | | | | | Mailcode: [id number] | | | | | | Outpatient Clinic | | | | | | [address] | | | | | | [place], [place] | | | | | | [address] | | | | | | [phone] | | | +--------+ + + + [...] as of this encounter Progress Notes Interface, Product Development Manager In - 12/11/2006 5:03 AM [facility] DATE: 07/03/97 INFECTIOUS DISEASE [...]
--- OUTSIDE RECORDS SUMMARY | ~2019-09-18 | XMS | Encounter Summary ---
Demographics + + + | Address | [address] | | | [place] [address] | + + + | Home Phone [...] [place] | | | | | [address] | | + + + + + Care Team Providers + +------+ + | Care Education Director Name | Role | Phone [...] [address] | [address] [place], [place] | | | | | [place], [place] | [id number] | | | | | [address] | | | | | | [phone] | | | +--------+ + + + [...] | | | | | [place] | | | | | | [address] | | | | | | | | +--------+---------+ + + + documented as of this encounter Visit Diagnoses Not on filedocumented in this encounter"
--- OUTSIDE RECORDS SUMMARY | ~2019-09-18 | XMS | Encounter Summary ---
Demographics + + + | Address | [address] | | | [place] [address] | + + + | Home Phone [...] [place], [place] | | | | | [address] | | + + + + + Care Team Providers + +------+ + | Care Scrubber System Attendant Name | Role | Phone | + +------+ + PCP | Unavailable | + +------+ + Encounter Details +--------+ + + + + | Date | Type | Department | Care Team | Description | +--------+ + + + + | 02/16/ | Hospital | [facility] | | | | 1994 | Encounter | MED CTR LABORATORY | | | | | | [address] | | | | | | [place] | | | | | | [address] | | | | | | [phone] | | | +--------+ + + + [...] | | | | | [place] | | | | | | [address] | | | | | | | | +--------+---------+ + + + documented as of this encounter Visit Diagnoses Not on filedocumented in this encounter"
--- OUTSIDE RECORDS SUMMARY | ~2019-09-18 | XMS | Encounter Summary ---
Demographics + + + | Address | [address] | | | [place] [address] | + + + | Home Phone [...] [place] | | | | | [address] | | + + + + + Care Team Providers + +------+ + | Care Multimedia Journalist Name | Role | Phone | [...] [id number] | | | | | | [place], [place] | | | | | | [address] | | | | | | [phone] | | | +--------+ + + + [...] | + + + + + | [facility] | [address] | [place] [address] | | | PATHOLOGY | [address] [...] Re | | | | | | 617313 | | | | + + + + + + + + | Specimen | + + | | + + + + + + + | Performing | Address | City/State/Zipcode | Phone Number | | Organization | | | | + + + + + | [facility] | [address] | [place] [address] | | | PATHOLOGY | [address] [...] Re | | | | | | 449[address] | | | | + + + + + + + + | Specimen | + + | | + + + + + + + | Performing | Address | City/State/Zipcode | Phone Number | | Organization | | | | + + + + + | [facility] | [address] | [place] [address] | | | PATHOLOGY | [address] [...] Re | | | | | | 426422 | | | | + + + + + + + + | Specimen | + + | | + + + + + + + | Performing | Address | City/State/Zipcode | Phone Number | | Organization | | | | + + + + + | [facility] | [address] | [place] [address] | | | PATHOLOGY | [address] [...] Re | | | | | | 652193 | | | | + + + + + + + + | Specimen | + + | | + + + + + + + | Performing | Address | City/State/Zipcode | Phone Number | | Organization | | | | + + + + + | [facility] | [address] | [place] [address] | | | PATHOLOGY | [address] | | | + + + + + documented in this encounter Visit Diagnoses Not on filedocumented in this encounter"
--- OUTSIDE RECORDS SUMMARY | ~2019-09-18 | XMS | Encounter Summary ---
Demographics + + + | Address | [address] | | | [place] [address] | + + + | Home Phone [...] [place] | | | | | [address] | | + + + + + Care Team Providers + +------+ + | Care Carbonation Equipment Operator Name | Role | Phone [...] | 2019 | | CARDIOLOGY [place] Abad, Real Estate Executive Assistant | anxious about urgent | | | | [address] | | reports. ) | | | | [place] | | | | | | [address] | | | | | | [phone] | | | +--------+ + + + [...] [place] | | | | | | [address] | | | | | | | | +--------+---------+ + + + documented as of this encounter Visit Diagnoses Not on filedocumented in this encounter"
--- OUTSIDE RECORDS SUMMARY | ~2019-09-18 | XMS | Encounter Summary ---
Demographics + + + | Address | [address] | | | [place] [address] | + + + | Home Phone [...] [place], [place] | | | | | [address] | | + + + + + Care Team Providers + +------+ + | Care Out Patient Therapist Name | Role | Phone | + +------+ + PCP | Unavailable | + +------+ + Encounter Details +--------+ + + + + | Date | Type | Department | Care Team | Description | +--------+ + + + + | 07/23/ | Hospital | [facility] | | | | 1992 - | Encounter | MED CTR GENERIC PSY | | | | | | CONV DEPT [address] | | | | 07/28/ | | [place], | | | | 1992 | | [place] [address] | | | | | | [phone] | | | +--------+ + + + [...] [place] | | | | | | [address] | | | | | | | | +--------+---------+ + + + documented as of this encounter Visit Diagnoses Not on filedocumented in this encounter"
--- OUTSIDE RECORDS SUMMARY | ~2019-09-18 | XMS | Encounter Summary ---
Demographics + + + | Address | [address] | | | [place] [address] | + + + | Home Phone [...] [place] | | | | | [address] | | + + + + + Care Team Providers + +------+ + | Care Disposal Operator Name | Role | Phone | [...] | | | | | | [place] [address] | | | | | | [phone] | | | | | | | [...] in | | | | | | [place] with a | | | | | [...] | | | | | | Laboratory, [place], | | | | | | [place], delivered | | | | | | [...] by | | | | | | nwzbllzrYbf-Rxg-T: | | | | | | Increased [...] istryMHC-1: | | | | | | [id number] stain | | | | | | [...] [place] | [address] | [place] [address] | | | PATHOLOGY | [address] | | | + + + + + documented in this encounter Visit Diagnoses Not on filedocumented in this encounter
--- OUTSIDE RECORDS SUMMARY | ~2019-09-18 | XMS | Encounter Summary ---
Demographics + + + | Address | [address] | | | [place] [address] | + + + | Home Phone [...] [place] | | | | | [address] | | + + + + + Care Team Providers + +------+ + | Care Medical Policy Specialist Name | Role | Phone | + +------+ + | Natalee Andersen NP | PCP | | + +------+ + Encounter Details +--------+ + + + + | Date | Type | Department | Care Team | Description | +--------+ + + + + | 05/02/ | Hospital | [facility] | Frandy Teresa, | Back pain | | 2014 | Encounter | MED CTR XRAY [address] | DO [address] | | | | | [place] | [address] [place] | | | | | [place] [address] | [address] | | | | | [phone] | | | +--------+ + + + [...] + + + +---------+ + + | [place]-3 Fatty | Take 1,000 mg by | [...] | | | | | [place] | | | | | | [address] | | | | | | | [...] + | MISCELLANEOUS LAB | | | [phone] | + +---------+ + + | MISCELANIOUS LAB | | | [phone] | + +---------+ + + documented in this encounter Visit Diagnoses + + | Diagnosis | + + | Back pain Backache, unspecified | + + documented in this encounter"
--- OUTSIDE RECORDS SUMMARY | ~2019-09-18 | XMS | Encounter Summary ---
Demographics + + + | Address | [address] | | | [place] [address] | + + + | Home Phone [...] [place] | | | | | [address] | | + + + + + Care Team Providers + +------+ + | Care Payroll Bookkeeper Name | Role | Phone | + [...] | | | spondylolist | | [address] | | | | | hesis | | [place], | | | | | Spinal | | [place] [address] | | | | | stenosis, | | Phone: | | | | | lumbar | | [phone] | | | | | region, | | Fax: | | | | | without | | [phone] | | | | | neurogenic | [...] + | 07/02/ | Surgery | [facility] | Frandy Teresa, | MIS L5-S1 | | 2013 | | MED CTR OR INTRA OP | DO [address] | TRANSFORAMINAL | | | | [address] | [address] [place], [place] | LUMBAR INTERBODY | | | | [place] | [id number] | FUSION | | | | [address] | | | | | | [phone] | | | +--------+---------+ + + + [...] Take 15 mg by mouth nightl y. [place]-3 Fatty Acids (FISH OIL CONCENTRATE) 1000 MG [...] + + +---------+ + + | [place]-3 Fatty | Take 1,000 mg by | [...] Lynn PA-C - 07/04/2014 7:43 AM PDT [facility] PROGRESS NOTE Pt. Name/Age/: Cindy Arndt 58 y.o. 1955 Med. Record Number: [id number] Date of admission: 07/02/2014 Subjective: The patient [...] home medications. D/C plan: Home tomorrow with [facility]. D/c mari drain and riley cath today. 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 Patient Active Problem List Diagnosis LUMBAR [...] signed by: Chris Nicole, 07/04/2014 7:45 [facility] Chris Lynn PA-C - 07/03/2014 7:13 AM PDT . [facility] PROGRESS NOTE Pt. Name/Age/: Cindy Arndt 58 y.o. 1955 Med. Record Number: [id number] Date of admission: 07/02/2014 Subjective: The patient [...] signed by: Chris Nicole, 07/03/2014 7:13 [facility] Ton Johnston, KRIS - 07/03/2014 6:50 AM [...] | | | | | [place] | | | | | | [address] | | | | | | | [...] + | [facility] | [address] | [place], [place] | [phone] | | [facility] | | [address] | | | - LABORATORY | | | | + + + + + | [facility] | [address] | [place], [place] | | | [facility] | | [address] | | | - LABORATORY | | [...] + | [facility] | [address] | [place] | [phone] | | [facility] | | [address] | | | - LABORATORY | | | | + + + + + | [facility] | [address] | [place] | | | [facility] | | [address] | | | - LABORATORY | | [...] + | [facility] | [address] | [place], [place] | [phone] | | [facility] | | [address] | | | - LABORATORY | | | | + + + + + | [facility] | [address] | [place], [place] | | | [facility] | | [address] | | | - LABORATORY | | [...] + | [facility] | [address] | [place] | [phone] | | [facility] | | [address] | | | - LABORATORY | | | | + + + + + | [facility] | [address] | [place], [place] | | | [facility] | | [address] | | | - LABORATORY | | [...] + | [facility] | [address] | [place], [place] | [phone] | | [facility] | | [address] | | | - LABORATORY | | | | + + + + + | [facility] | [address] | [place] | | | [facility] | | [address] | | | - LABORATORY | | [...] + | [facility] | [address] | [place] | [phone] | | [facility] | | [address] | | | - LABORATORY | | | | + + + + + | [facility] | [address] | [place] | | | [facility] | | [address] | | | - LABORATORY | | [...] + | Performing | Address | City/State[facility] | Phone Number | | Organization | | | | + + + + + | [facility] | [address] | [place] | [phone] | | [facility] | | [address] | | | - LABORATORY | | | | + + + + + | [facility] | [address] | [place] | | | [facility] | | [address] | | | - LABORATORY | | [...] + | [facility] | [address] | [place] | [phone] | | [facility] | | [address] | | | - LABORATORY | | | | + + + + + | [facility] | [address] | [place] | | | [facility] | | [address] | | | - [...] [address] | [place] | [phone] | | [facility] | | [address] | | | - LABORATORY | | | | + + + + + | [facility] | [address] | [place], [place] | | | [facility] | | [address] | | | - LABORATORY | | [...] | of hardware for posterior fusion from I5ptuofnb S1 with interbody hardware at L5-S1. The [...] + | MISCELLANEOUS LAB | | | [phone] | + +---------+ + + | MISCELANIOUS LAB | | | [phone] | + +---------+ + + POC Glucose [...] + | [facility] | [address] | [place] | [phone] | | [facility] | | [address] | | | - LABORATORY | | | | + + + + + | [facility] | [address] | [place] | | | [facility] | | [address] | | | - LABORATORY | | [...] + | [facility] | [address] | [place], [place] | [phone] | | [facility] | | [address] | | | - LABORATORY | | | | + + + + + | [facility] | [address] | [place] | | | [facility] | | [address] | | | - LABORATORY | | [...] | | | POC | | | [facility] | | | | | | MEDICAL [...] + | [facility] | [address] | [place] | [phone] | | [facility] | | [address] | | | - LABORATORY | | | | + + + + + | [facility] | [address] | [place] | | | [facility] | | [address] | | | - LABORATORY | | [...] + | [facility] | [address] | [place] | [phone] | | [facility] | | [address] | | | - LABORATORY | | | | + + + + + | [facility] | [address] | [place] | | | [facility] | | [address] | | | - LABORATORY | | [...] + | [facility] | [address] | [place], [place] | [phone] | | [facility] | | [address] | | | - LABORATORY | | | | + + + + + | [facility] | [address] | [place], [place] | | | [facility] | | [address] | | | - LABORATORY | | [...] ST. | [address] | [place] | | | [facility] | | [address] | | | - BLOOD BANK | [...] mLs | | Surgical | | 1:200,000 0.25-1:086142 % | | 14 12:42 | | [...]
--- OUTSIDE RECORDS SUMMARY | ~2019-09-18 | XMS | Encounter Summary ---
Demographics + + + | Address | [address] | | | [place] [address] | + + + | Home Phone [...] [place] | | | | | [address] | | + + + + + Care Team Providers + +------+ + | Care Rf Technician Name | Role | Phone | [...] 02/21/ | Refill | [facility] | Deon Gonzales | Medication Refill | | 2012 | | SLEEP DISORDER [address] | MD La[address] | | | | | [address] [place] | [address] [place] | | | | | [place] [address] | [place] [address] | | | | | [phone] | [phone] | | | | | | | [...] [place] | | | | | | [address] | | | | | | | | +--------+---------+ + + + documented as of this encounter Visit Diagnoses + + | Diagnosis | + + | Obstructive sleep apnea (adult) (pediatric) - Primary | + + documented in this encounter"
--- OUTSIDE RECORDS SUMMARY | ~2019-09-18 | XMS | Encounter Summary ---
Demographics + + + | Address | [address] | | | [place] [address] | + + + | Home Phone [...] [place] | | | | | [address] | | + + + + + Care Team Providers + +------+ + | Care Rod Buster Name | Role | Phone | + [...] | | | spondylolist | | [address] | | | | | hesis | | [place], | | | | | Spinal | | [place] [address] | | | | | stenosis, | | Phone: | | | | | lumbar | | [phone] | | | | | region, | | Fax: | | | | | without | | [phone] | | | | | neurogenic | [...] + | 07/02/ | Hospital | [facility] | Frandy Teresa, | Spinal stenosis, | | 2013 | Encounter | MED CTR XRAY [address] | DO [address] | lumbar region, | | | | [place] | [address] [place], [place] | without neurogenic | | | | [place] [address] | [address] | claudication | | | | [phone] | | (Primary Dx) | +--------+ + [...] + + + +---------+ + + | [place]-3 Fatty | Take 1,000 mg by | [...] [place] | | | | | | [address] | | | | | | | [...]
--- OUTSIDE RECORDS SUMMARY | 2019-09-18 10:36 | XMS ---
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 Security Plate Maker Zinc Events No recent Security Events currently on file CRITERIA MET - 6 ED Visits in 6 Months - [facility] - Has Care Guidelines - PDMP - [facility] - 2 Visits in 30 Days CARE PROVIDERS WAYNE CAMARGO Internal Medicine 09/07/2019-Current PHONE: Unknown Kenny Palafox DO Family [facility] Current PHONE: Unknown Jose Ag Family Medicine 01/31/2019-Current PHONE: Unknown [facility] Provider Current PHONE: [phone] Guidelines Source: [facility] [place] Guidelines Date: 03/13/2019 Care Coordination: Mental health services are being provided by [facility].\T\nbsp; Please contact [facility] with mental health concerns.\T\nbsp; [place] \T\nbsp; [place]: [phone]. Care History Medical/Surgical 07/02/2019 [facility] - PATIENT HAS AN APT WITH OILVER CANALES ON 07/19/19. 05/08/2019 [facility] - PATIENT HAS A GAS MAIN FITTER - DR DESHAUN [facility] [phone]. - PATIENT IS WORKING [facility]LOSELY WITH [facility] IN REGARDS TO PSYCHIATRIC MEDICATIONS. ANY PSYCHIATRIC MED CHANGES AND OR ADJUSTMENTS WILL NEED TO BE REVIEWED BY PACKAGE DYEING MACHINE OPERATOR AT [facility]. 04/11/2019 [facility] - PATIENT HAS AN APT WITH DR ALAS ON 04/25/19. E.D. VISIT COUNT (12 MO.) 18 [facility]. TOTAL 18 NOTE: Visits indicate total known visits. ED/UCC VISIT TRACKING (12 MO.) 09/18/2019 10:33 JA[facility] [place] [place] TYPE: Emergency COMPLAINT: - SUICIDAL THOUGHTS, HEARING VOICES 09/06/2019 11:40 [place] [place] TYPE: Emergency COMPLAINT: - MEDICAL CLEARANCE DIAGNOSES: - Old myocardial infarction - Essential (primary) hypertension - Allergy status to sulfonamides status - Auditory hallucinations - 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 (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 - Allergy status to oth drug/meds/biol subst status - 1 Type 2 diabetes mellitus without complications - Gastro-esophageal reflux disease without esophagitis 08/15/2019 15:26 [facility] [place] TYPE: Emergency COMPLAINT: - DIZZINESS DIAGNOSES: - Schizoaffective disorder, unspecified - Other halfway (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 - 1 Type 2 [...] 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 - Other halfway (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 - Allergy status to narcotic agent status - Schizophrenia, unspecified - Allergy status to oth drug/meds/biol subst status - Dizziness and giddiness - Allergy status to sulfonamides status 07/01/2019 10:58 JAEL [place]nu[place]os [place] TYPE: Emergency COMPLAINT: - AMB SYNCOPE DIAGNOSES: - Allergy status to oth drug/meds/biol subst status - Essential (primary) hypertension - Syncope and collapse - Prsnl hx of TIA (TIA), and 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 - Old myocardial infarction - Allergy status to sulfonamides status - 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 (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] Allergy status to sulfonamides status - 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 (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 - Essential (primary) hypertension [...] deficits - Old myocardial infarction - Other halfway (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 - Allergy status to sulfonamides status - Other chest pain 05/02/2019 13:59 [facility] [place] TYPE: Emergency COMPLAINT: - VOMITING, CHEST PAIN, WEAKNESS DIAGNOSES: - Allergy status to sulfonamides status - senior living (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 of 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 - [...] of urea cycle metabolism, unspecified - Other halfway (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 - Acquired absence of other specified parts of digestive tract - Essential (primary) hypertension 04/03/2019 12:30 [facility] [place] TYPE: Emergency COMPLAINT: - TROUBLE BREATHING DIAGNOSES: - Allergy status to oth drug/meds/biol subst status - 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 (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 - Allergy status [...] tract - Essential (primary) hypertension - 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 (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 - Prsnl hx of [...] Allergy status to sulfonamides status - 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 (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 - Allergy status [...] PAIN DIAGNOSES: - Essential (primary) hypertension - senior living (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 of 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 - Other halfway (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 - Allergy status to [...] without esophagitis - Bariatric surgery status - oil heaterman (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 - 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 (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 - Suicidal ideations [...] INPATIENT VISIT TRACKING (12 MO.) 05/16/2019 11:50 [facility] [place] [facility]: [facility] COMPLAINT: - SCHIZOAFFECTIVE D/O DIAGNOSES: - Schizoaffective disorder, unspecified [email or web address]
[2019-09-18] MEDS ORDERED: NOVOLOG MI100 UNIT/1 SUB-Q (11:02)
[2019-09-18] MEDS ORDERED: GLUCOPHAGE XR500 MG PO (17:51)
[2019-09-18] MEDS ORDERED: GLIPIZIDE5 MG PO (17:51)
== END 2019-09-18 12:48 | disposition home or self-care (01) ==
LOC: ED 10:32
DX: F25.9 Schizoaffective disorder, unspecified (principal); E72.20 Disorder of urea cycle metabolism, unspecified; I10 Essential (primary) hypertension; K21.9 Gastro-esophageal reflux disease without esophagitis; E11.9 Type 2 diabetes mellitus without complications; I25.2 Old myocardial infarction; Z88.2 Allergy status to sulfonamides; Z88.8 Allergy status to other drugs, medicaments and biological substances; Z79.899 Other long term (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; Z79.4 Long term (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
CPT/HCPCS: 36415; 80053; 80176; 81001; 82140; 84443; 85025; 99284; G0480

== ENCOUNTER 2019-09-18 13:52 | Emergency (ER) | payer MEDICARE ==
[~2019-09-18] VITALS: Ht 170.2 cm; Wt 134.6 kg
--- OUTSIDE RECORDS SUMMARY | ~2019-09-18 | XMS | Encounter Summary ---
Demographics + + + | Address | [address] | | | [place] [address] | + + + | Home Phone | | + + + | Preferred Language | Unknown | + + + | Marital Status | | + + + | Christianity Affiliation | 1013 | + + + | Race | Unknown | + + + | Ethnic Group | Unknown | + + + Author + + + | Author | [facility] | | | and [place] | + + + | Organization | [facility] | | | and [place] | + + + | Address | Unknown | + + + | Phone | Unavailable | + + + Support + + + + + | Name | Relationship | Address | Phone | + + + + + | Araceli Sibley | ECON | [place] | | | | | [address] | | + + + + + Care Team Providers + +------+ + | Care Caseworker Protective Services Name | Role | Phone | + [...] | +--------+ + + + + | 08/20/ | Documentati | [facility] | Katharine Moncada, | Other (urgent | | 2019 | on | CARDIOLOGY [place] | Technologist | report) | | | | [address] | | | | | | [place] | | | | | | [address] | | | | | | [phone] | | | +--------+ + + + [...] encounter Progress Notes Katharine Moncada, Technologist - 08/20/2019 9:17 AM PDTReceived urgent report 08/20/19 Pt had a urgent report 08/18/19 at 16:10 108 BPM Called pt and she slept all weekend and is feeling really good 30 day monitor was placed 08/09/19 No medications Will continue to monitor Please see attachment [...] [place] | | | | | | [address] | | | | | | | | +--------+---------+ + + + documented as of this encounter Visit Diagnoses Not on filedocumented in this encounter"
--- OUTSIDE RECORDS SUMMARY | ~2019-09-18 | XMS | Encounter Summary ---
Demographics + + + | Address | [address] | | | [place] [address] | + + + | Home Phone | | + + + | Preferred Language | Unknown | + + + | Marital Status | | + + + | Christian Affiliation | 1013 | + + + | Race | Unknown | + + + | Ethnic Group | Unknown | + + + Author + + + | Author | [facility] | | | and [place] | + + + | Organization | [facility] | | | and [place] | + + + | Address | Unknown | + + + | Phone | Unavailable | + + + Support + + + + + | Name | Relationship | Address | Phone | + + + + + | Araceli Sibley | ECON | [place] | | | | | [address] | | + + + + + Care Team Providers + +------+ + | Care Hand Decorator Name | Role | Phone | + [...] + + | 08/20/ | Documentati | [facility] | Katharine Moncada, | Other (urgent | | 2019 | on | CARDIOLOGY [place] | Technologist | report) | | | | [address] | | | | | | [place] | | | | | | [address] | | | | | | [phone] | | | +--------+ + + + [...] [place] | | | | | | [address] | | | | | | | | +--------+---------+ + + + documented as of this encounter Visit Diagnoses Not on filedocumented in this encounter"
--- OUTSIDE RECORDS SUMMARY | ~2019-09-18 | XMS | Encounter Summary ---
Demographics + + + | Address | [address] | | | [place] [address] | + + + | Home Phone | | + + + | Preferred Language | Unknown | + + + | Marital Status | | + + + | Faith Affiliation | 1013 | + + + | Race | Unknown | + + + | Ethnic Group | Unknown | + + + Author + + + | Author | [facility] | | | and [place] | + + + | Organization | [facility] | | | and [place] | + + + | Address | Unknown | + + + | Phone | Unavailable | + + + Support + + + + + | Name | Relationship | Address | Phone | + + + + + | Araceli Sibley | ECON | [place] | | | | | [address] | | + + + + + Care Team Providers + +------+ + | Care Residential Life Director Name | Role | Phone | + +------+ + | Basim Bolanos MD | PCP | | + +------+ + Reason for Visit +---------+ + | Reason | Comments | +---------+ + | Results | | +---------+ + Encounter Details +--------+ + + + + | Date | Type | Department | Care Team | Description | +--------+ + + + + | 04/05/ | Telephone | [facility] [place] [facility], | Results | | 2012 | | GASTROENTEROLOGY | [place] [address] | | | | | [address] [place] | [place] | | | | | [address] [place], [place] | [place], [place] | | | | | [address] | [address] | | | | | [phone] | | | +--------+ + + + [...] [place] | | | | | | [address] | | | | | | | | +--------+---------+ + + + documented as of this encounter Visit Diagnoses Not on filedocumented in this encounter"
--- OUTSIDE RECORDS SUMMARY | ~2019-09-18 | XMS | Encounter Summary ---
Demographics + + + | Address | [address] | | | [place] [address] | + + + | Home Phone | | + + + | Preferred Language | Unknown | + + + | Marital Status | Single | + + + | Restoration Affiliation | Unknown | + + + | Race | White | + + + | Ethnic Group | Not or | + + + Author + + + | Author | [facility] | + + + | Organization | [facility] | + + + | Address | Unknown | + + + | Phone | Unavailable | + + + Support + + + + + | Name | Relationship | Address | Phone | + + + + + | Kelsy Bautista | ECON | [address] | | | | | [place] | | | | | [address] | | + + + + + Care Team Providers + +------+ + | Care Dermatology Physician Name | Role | Phone | + +------+ + PCP | Unavailable | + +------+ + Encounter Details +--------+ + + + + | Date | Type | Department | Care Team | Description | +--------+ + + + + | 07/03/ | Results | Infectious | Deon Lopez, | | | 1996 | Only | Diseases [address] | | | | | | [address] | | | | | | Mailcode: [id number] | | | | | | Outpatient Clinic | | | | | | [place] | | | | | | [place] [address] | | | | | | [phone] | | | +--------+ + + + [...] | + +--------+ + + + | X-RAY CHEST 2 VIEW | Routin | 07/03/1997 | | Results for this | | | e | 12:09 PM | | procedure are in the | | | | PDT | | results section. | + +--------+ + + + documented in this encounter Results CHEST 2 VIEW (07/03/1997 12:09 PM PDT) + + + + + + | Component | Value | Ref Range | Performed | Pathologist | | | | | At | Signature | + + + + + + | CHEST, 2 | Radiologist 1: NIRANJAN, | | | | | VIEWS [place] | SIENNA LUCIANO, | | | | | STEREO | CINDY | | | | | | | | | | | | | | | | | | CHEST, [place] | | | | | | AND LATERAL VIEWS: | | | | | | 07-03-97 AT 1209 HOURS | | | | | | DICTATED: 07-04-97 | | | | | | There are no old films | | | | | | available for | | | | | | comparison. FINDINGS: | | | | | | The heart size | | | | | | is normal. The | | | | | | pulmonary vasculatureis | | | | | | normal. The lungs are | | | | | | clear. There is no | | | | | | pleural effusion. | | | | | | IMPRESSION: Clear lungs. | | | | | | END OF IMPRESSION: | | | | + + + + + + + + | Specimen | + + | | + + + +---------+ + + | Performing | Address | City/State/Zipcode | Phone Number | | Organization | | | | + +---------+ + + | [facility] DEPARTMENT OF | | | | | RADIOLOGY | | | | + +---------+ + + documented in this encounter Visit Diagnoses Not on filedocumented in this encounter"
--- OUTSIDE RECORDS SUMMARY | ~2019-09-18 | XMS | Encounter Summary ---
Demographics + + + | Address | [address] | | | [place] [address] | + + + | Home Phone [...] [place] | | | | | [address] | | + + + + + Care Team Providers + +------+ + | Care Manager Of School Name | Role | Phone | + +------+ + | Thierry Fry MD | PCP | | + +------+ + Encounter Details +--------+ + + + + | Date | Type | Department | Care Team | Description | +--------+ + + + + | 03/06/ | Hospital | [facility] | Katharine Cardona PA-C | Essential | | 2015 | Encounter | MED CTR LABORATORY | [address] | hypertension | | | | [address] [place] | [place] [address] | | | | | [place], [place] | [phone] | | | | | [address] | | | | | | [phone] | | | +--------+ + + + [...] +---------+ + + | Cholecalciferol | Take 50,000 Units by | | 0 | | | | (VITAMIN D-3) 63127 | mouth Once a week. | | | | | | units CAPS | | | | | | + + + +---------+ + + | levothyroxine | Take 112 mcg by | | 0 | | | | (SYNTHROID) 137 mcg | mouth every morning | | | | | | tablet | (before breakfast). | | | | | + + + +---------+ + + | metFORMIN | Take 1 tablet by | 90 | 3 | 03/09/20 | | | (GLUCOPHAGE-XR) 500 | mouth daily (with | tablet | | 15 | | | mg 24 hr | breakfast). | | | | | | tabletIndications: | | | | | | | Type 2 diabetes | | | | | | | mellitus, controlled | | | | | | | (HCC) | | | | | | + + + +---------+ + + | OLANZapine | Take 10 mg by mouth | | 0 | | | | (ZYPREXA) 10 MG | nightly. | | | | | | tablet [...] +---------+ + + | atenolol | Take 1 tablet by | 90 | 3 | 03/09/20 | | | (TENORMIN) 25 mg | mouth nightly. | tablet | | 15 | 5 | | tabletIndications: | | | | | | | Essential | | | | | | | hypertension | | | | | | + + + +---------+ + + | atenolol | Take 25 mg by mouth | | 0 | | | | (TENORMIN) 25 mg | nightly. | | | | 5 | | tablet | | | | | | + + + +---------+ + + | CALCIUM CITRATE PO | Take 500 mg by mouth | | 0 | | | | | Daily. | | | | 9 | + + + +---------+ + + | clopidogrel | Take 1 tablet by | 30 | 3 | 02/28/20 | | | (PLAVIX) 75 mg | mouth Daily. | tablet | | 15 | 5 | | tabletIndications: | | | | | | | Stroke (HCC) | | | | | | + + + +---------+ + + | dexlansoprazole | Take 1 capsule by | 90 | 3 | 03/09/20 | | | (DEXILANT) [address] | mouth Daily. | capsule | | 15 | 5 | | capsuleIndications: | | | | | | | Gastroesophageal | | | | | | | reflux disease | | | | | | | without esophagitis | | | | | | + [...] + + + +---------+ + + | fluticasone | 1 spray by Nasal | 16 g | 11 | 03/09/20 | | | (FLONASE) 50 | route Daily. | | | 15 | 5 | | mcg/nasal | | | | | | | sprayIndications: | | | | | | | Environmental and | | | | | | | seasonal allergies | | | | | | + [...] +---------+ + + | lisinopril | Take 1 tablet by | 90 | 3 | 03/09/20 | | | (PRINIVIL, ZESTRIL) | mouth Daily. | tablet | | 15 | 9 | | 10 mg | | | | | | | tabletIndications: | | | | | | | Essential | | | | | | | hypertension | | | | | | + [...] | | | | (GLUCOPHAGE-XR) 500 | daily (with | | | | 5 | | mg 24 hr tablet | breakfast). | | | | | + + + +---------+ + + | Multiple | Take 1 tablet by | | 0 | | | | Vitamins-Minerals | mouth Daily. | | | | 9 | | (CENTRUM SILVER PO) | | | | | | + + + +---------+ + + | P[place]ast[place]-3 Fatty | Take 1,000 mg by | 60 each | 5 | 03/09/20 | | | Acids (FISH OIL | mouth 2 times daily. | | | 15 | 9 | | CONCENTRATE) 1000 MG | | | | | | | CAPS | | | | | | + + + +---------+ + + | [place]ast[place]-3 Fatty | Take 1,000 mg by | [...] | | | | | [place] | | | | | | [id number] | | | | | | | | +--------+---------+ + + + documented as of this encounter Procedures + +--------+ + + + | Procedure Name | Priori | Date/Time | Associated Diagnosis | Comments | | | ty | | | | + +--------+ + + + | COMPREHENSIVE | Routin | 03/06/2015 | Essential | Results for this | | METABOLIC PANEL | e | 11:18 AM | hypertension | procedure are in the | | | | PDT | | results section. | + +--------+ + + + documented in this encounter Results Comprehensive Metabolic Panel (03/06/2015 11:18 AM PDT) + + + + + + | Component | Value | Ref Range | Performed | Pathologist | | | | | At | Signature | + + + + + + | Na | 131 (L) | 136 - 149 | [facility] | | | | | mmol/L | [facility] | | | | | | MEDICAL | | | | | | C[facility] - | | | | | | LABORATORY | | + + + + + + | K | 4.2 | 3.5 - 5.1 | [facility] | | | | | mmol/L | [facility] | | [facility] | MEDICAL | | | | | | CENTER - | | | | | | LABORATORY | | + + + + + + | Cl | 92 (L) | 98 - 109 mmol/L | [facility] | | | | | | [facility] | | | | | | MEDICAL | | | | | | CENTER - | | | | | | LABORATORY | | + + + + + + | CO2 | 31 | 24 - 31 mmol/L | [facility] | | | | | | [facility] | | | | | | MEDICAL | | | | | | CENTER - | | | | | | LABORATORY | | + + + + + + | Anion Gap | 8 | 3 - 16 mmol/L | [facility] | | | | | | [facility] | | | | | | MEDICAL | | | | | | CENTER - | | | | | | LABORATORY | | + + + + + + | Glucose | 103 | 70 - 109 mg/dL | [facility] | | | | | | [facility] | | | | | | MEDICAL | | | | | | CENTER - | | | | | | LABORATORY | | + + + + + + | BUN | 12 | 7 - 18 mg/dL | [facility] | | | | | | [facility] | | | | | | MEDICAL | | | | | | CENTER - | | | | | | LABORATORY | | + + + + + + | Creatinine | 0.66 | 0.60 - 1.30 | [facility] | | | | | mg/dL | [facility] | | | | | | MEDICAL | | | | | | CENTER - | | | | | | LABORATORY | | + + + + + + | eGFR if not | >60Comment: GLOMERULAR | >=60 | [facility] | | | | FILTRATION | mL/min/1.73m2 | [facility] | | | DANISH | RATE,ESTIMATED | | MEDICAL | | | | mL/min/1.98c2Hfqj than | | CENTER - | | [...] + + + + | Calcium | 9.6 | 8.3 - 10.5 | [facility] | | | | | mg/dL | [facility] | | | | | | MEDICAL | | | | | | CENTER - | | | | | | LABORATORY | | + + + + + + | Albumin | 4.1 | 3.2 - 5.0 g/dL | [facility] | | | | | | [facility] | | | | | | MEDICAL | | | | | | CENTER - | | | | | | LABORATORY | | + + + + + + | Bilirubin | 0.3 | 0.1 - 1.5 mg/dL | [facility] | | | Total | | | [facility] | | | | | | MEDICAL | | | | | | CENTER - | | | | | | LABORATORY | | + + + + + + | Total | 6.6 | 6.0 - 7.8 g/dL | [facility] | | | Protein | | | [facility] | | | | | | MEDICAL | | | | | | CENTER - | | | | | | LABORATORY | | + + + + + + | AST | 29 | 10 - 42 U/L | [facility] | | | | | | [facility] | | | | | | MEDICAL | | | | | | CENTER - | | | | | | LABORATORY | | + + + + + + | ALT | 27 | 6 - 45 U/L | [facility] | | | | | | [facility] | | | | | | MEDICAL | | | | | | CENTER - | | | | | | LABORATORY | | + + + + + + | Alkaline | 72 | 40 - 110 U/L | [facility] | | | Phosphatase | | | [facility] | | | | | | MEDICAL | | | | | | CENTER - | | | | | | LABORATORY | | + + + + + + | Globulin | 2.5 | g/dL | [facility] | | | | | | [facility] | | | | | | MEDICAL | | | | | | CENTER - | | | | | | LABORATORY | | + + + + + + | Albumin/Alice | 1.6 | | [facility] | | | bulin Ratio | | | [facility] | | | | | | MEDICAL | | | | | | CENTER - | | | | | | LABORATORY | | + + + + + + | BUN/Creatin | 18.2 | | [facility] | | | ine [...] + + + + + | [facility] | [address] | [place] | [phone] | | [facility] | | [address] | | | - LABORATORY | | | | + + + + + documented in this encounter Visit Diagnoses + + | Diagnosis | + + | Essential hypertension Unspecified essential hypertension | + + documented in this encounter"
--- OUTSIDE RECORDS SUMMARY | ~2019-09-18 | XMS | Encounter Summary ---
Demographics + + + | Address | [address] | | | [place] [address] | + + + | Home Phone [...] [place], [place] | | | | | [address] | | + + + + + Care Team Providers + +------+ + | Care Automatic Corn Grinder Operator Name | Role | Phone | + +------+ + PCP | Unavailable | + +------+ + Encounter Details +--------+ + + + + | Date | Type | Department | Care Team | Description | +--------+ + + + + | 12/31/ | Hospital | [facility] | | | | 1996 | Encounter | MED CTR XRAY [address] | | | | | | [place] | | | | | | [place] [address] | | | | | | [phone] | | | +--------+ + + + [...] | | | | | [place] | | | | | | [address] | | | | | | | | +--------+---------+ + + + documented as of this encounter Visit Diagnoses Not on filedocumented in this encounter"
--- OUTSIDE RECORDS SUMMARY | ~2019-09-18 | XMS | Encounter Summary ---
Demographics + + + | Address | [address] | | | [place] [address] | + + + | Home Phone [...] [place] | | | | | [address] | | + + + + + Care Team Providers + +------+ + | Care Elementary Summer School Teacher Name | Role | Phone | [...] | | | | | | [place] | | | | | | [address] | | | | | | [phone] | | | +--------+ + + + [...] [place] | | | | | | [address] | | | | | | | | +--------+---------+ + + + documented as of this encounter Visit Diagnoses Not on filedocumented in this encounter"
--- OUTSIDE RECORDS SUMMARY | ~2019-09-18 | XMS | Encounter Summary ---
Demographics + + + | Address | [address] | | | [place] [address] | + + + | Home Phone | | + + + | Preferred Language | Unknown | + + + | Marital Status | | + + + | Buddhist Affiliation | 1013 | + + + | Race | Unknown | + + + | Ethnic Group | Unknown | + + + Author + + + | Author | [facility] | | | and [place] | + + + | Organization | [facility] | | | and [place] | + + + | Address | Unknown | + + + | Phone | Unavailable | + + + Support + + + + + | Name | Relationship | Address | Phone | + + + + + | Araceli Sibley | ECON | [place] | | | | | [address] | | + + + + + Care Team Providers + +------+ + | Care Manager Control Name | Role | Phone | + [...] | | | spondylolist | | [address] | | | | | hesis | | [place], | | | | | Spinal | | [place] [address] | | | | | stenosis, | | Phone: | | | | | lumbar | | [phone] | | | | | region, | | Fax: | | | | | without | | [phone] | | | | | neurogenic | [...] + + | 07/02/ | Hospital | [facility] | Frandy Teresa, | Degenerative disc | | 2013 - | Encounter | [facility] | DO [address] | disease, lumbar | | | | [address] | [place] [address] | (Primary Dx); | | 07/05/ | | [place] [address] | [id number] | Diabetes mellitus | | 2013 | | [phone] | | ([facility]); Disturbance | | | | | | of skin sensation; | | | | | | Hypertension; | | | | | | Obstructive sleep | | | | | | apnea | +--------+ + + + + Social [...] might be different fro m the original. [facility] DISCHARGE SUMMARY PATIENT NAME: Cindy Arndt [...] Take 15 mg by mouth nightl y. Ellenwood-3 Fatty Acids (FISH OIL CONCENTRATE) 1000 MG [...] discharge procedures on file. Electronically signed by: Chirs Nicole PA-C, 07/05/2014 13:21 documented in this [...] 2,500 mcg | | 0 | | 05/14/201 | | (VITAMIN B12 PO) | under [...] + + + +---------+ + + | Ellenwood-3 Fatty | Take 1,000 mg by | [...] prophylaxis -DC plan: SNF versus home with [facility] any time. Maria T Storm RN - 07/04/2014 6:56 PM PDTFoley cath dc'd and MARI drain dc'd no problems. Chris Lynn PA-C - 07/04/2014 7:43 AM PDT [facility] PROGRESS NOTE Pt. Name/Age/: Cindy Arndt 58 y.o. 1955 Med. Record Number: [id number] Date of admission: 07/02/2014 Subjective: The patient [...] home medications. D/C plan: Home tomorrow with [facility]. D/c mari drain and riley cath today. 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 Patient Active Problem List Diagnosis LUMBAR DISC [...] signed by: Chris Nicole, 07/04/2014 7:45 [facility] Chris Lynn PA-C - 07/03/2014 7:13 AM PDT . [facility] PROGRESS NOTE Pt. Name/Age/: Cindy Arndt 58 y.o. 1955 Med. Record Number: [id number] Date of admission: 07/02/2014 Subjective: The patient [...] Electronically signed by: Chris Nicole, 07/03/2014 7:13 [facility] Ton Menjivar, KRIS - 07/03/2014 6:50 AM PDTRemoved continuous [...] [place] | | | | | | [id number] | | | | | | | [...] + | [facility] | [address] | [place], [place] | [phone] | | [facility] | | [address] | | | - LABORATORY | | | | + + + + + | [facility] | [address] | [place], [place] | | | [facility] | | [address] | | | - LABORATORY | | [...] + | [facility] | [address] | [place] | [phone] | | [facility] | | [address] | | | - LABORATORY | | | | + + + + + | [facility] | [address] | [place] | | | [facility] | | [address] | | | - LABORATORY | | [...] + + | [facility] | [address] | [place] | [phone] | | [facility] | | [address] | | | - LABORATORY | | | | + + + + + | [facility] | [address] | [place] | | | [facility] | | [address] | | | - LABORATORY | | [...] + | [facility] | [address] | [place], [place] | [phone] | | [facility] | | [address] | | | - LABORATORY | | | | + + + + + | [facility] | [address] | [place], [place] | | | [facility] | | [address] | | | - LABORATORY | | | | + + + + + POC Glucose (07/04/2014 5:55 PM PDT) + +-------+ + + + | Component | Value | Ref Range | Performed | Pathologist | | | | | At | Signature | + +-------+ + + + | Glucose, | 119 | 79 - 150 mg/dL | [facility] [...] + | [facility] | [address] | [place] | [phone] | | [facility] | | [address] | | | - LABORATORY | | | | + + + + + | [facility] | [address] | [place] | | | [facility] | | [address] | | | - LABORATORY | | | | + + + + + POC Glucose (07/04/2014 11:36 AM PDT) + +-------+ + + + | Component | Value | Ref Range | Performed | Pathologist | | | | | At | Signature | + +-------+ + + + | Glucose, | 127 | 79 - 150 mg/dL | [facility] [...] + | [facility] | [address] | [place] | [phone] | | [facility] | | [address] | | | - LABORATORY | | | | + + + + + | [facility] | [address] | [place] | | | [facility] | | [address] | | | - LABORATORY | | | | + + + + + POC Glucose (07/04/2014 8:15 AM PDT) + +-------+ + + + | Component | Value | Ref Range | Performed | Pathologist | | | | | At | Signature | + +-------+ + + + | Glucose, | 126 | 79 - 150 mg/dL | [facility] [...] [address] | [place] | [phone] | | [facility] | | [address] | | | - LABORATORY | | | | + + + + + | [facility] | [address] | [place] | | | [facility] | | [address] | | | - LABORATORY | | [...] + | [facility] | [address] | [place], [place] | [phone] | | [facility] | | [address] | | | - LABORATORY | | | | + + + + + | [facility] | [address] | [place], [place] | | | [facility] | | [address] | | | - LABORATORY | | | | + + + + + POC Glucose (07/03/2014 4:25 PM PDT) + +-------+ + + + | Component | Value | Ref Range | Performed | Pathologist | | | | | At | Signature | + +-------+ + + + | Glucose, | 146 | 79 - 150 mg/dL | [facility] [...] [address] | [place] | [phone] | | [facility] | | [address] | | | - LABORATORY | | | | + + + + + | [facility] | [address] | [place], [place] | | | [facility] | | [address] | | | - LABORATORY | | [...] | of hardware for posterior fusion from V0zvkdapl S1 with interbody hardware at L5-S1. The [...] + + | Performing | Address | City/State/[facility] | Phone Number | | Organization | | | | + +---------+ + + | [facility] | | | [phone] | + +---------+ + + | [facility] | | | [phone] | + +---------+ + + POC Glucose [...] + | [facility] | [address] | [place], [place] | [phone] | | [facility] | | [address] | | | - LABORATORY | | | | + + + + + | [facility] | [address] | [place], [place] | | | [facility] | | [address] | | | - LABORATORY | | [...] + | [facility] | [address] | [place] | [phone] | | [facility] | | [address] | | | - LABORATORY | | | | + + + + + | [facility] | [address] | [place] | | | [facility] | | [address] | | | - LABORATORY | | [...] | | | POC | | | [facility] | | | | | | MEDICAL [...] + | [facility] | [address] | [place] | [phone] | | [facility] | | [address] | | | - LABORATORY | | | | + + + + + | [facility] | [address] | [place] | | | [facility] | | [address] | | | - LABORATORY | | [...] + | [facility] | [address] | [place], [place] | [phone] | | [facility] | | [address] | | | - LABORATORY | | | | + + + + + | [facility] | [address] | [place] | | | [facility] | | [address] | | | - LABORATORY | | | | + + + + + POC Glucose (07/02/2014 10:33 AM PDT) + +-------+ + + + | Component | Value | Ref Range | Performed | Pathologist | | | | | At | Signature | + +-------+ + + + | Glucose, | 102 | 79 - 150 mg/dL | [facility] [...] + | [facility] | [address] | [place] | [phone] | | [facility] | | [address] | | | - LABORATORY | | | | + + + + + | [facility] | [address] | [place] | | | [facility] | | [address] | | | - LABORATORY | | [...] [facility] | | | | | [facility] | | | | | [facility] | | | | | | [facility] - | | | | | | BLOOD BANK | | + + + + + + | Rh Type | Negative | | [facility] | | | | | [facility] | | | | | | [facility] | | | | | | [facility] - | | | | | | BLOOD BANK | | + + + + + + | Antibody | Negative | | [facility] | | | Screen | | | [facility] | | [...] St | [place] | | | [facility] | | [address] | | | - BLOOD BANK | | | | + + + + + documented in this encounter Visit Diagnoses + + | Diagnosis | + + | Degenerative disc disease, lumbar - Primary Degeneration of lumbar or lumbosacral | | intervertebral disc | + + | Diabetes mellitus (HCC) Type II or unspecified type diabetes mellitus without mention | | of complication, not stated as uncontrolled | + + | Disturbance of skin sensation | + + | Hypertension Unspecified essential hypertension | + + | Obstructive sleep apnea Obstructive sleep apnea (adult) (pediatric) | + + documented in this encounter Administered Medications + +--------+ +-------+------+------+ | Medication Order | MAR | Action | Dose | Rate | Site | | | Action | Date | | | | + +--------+ +-------+------+------+ | asenapine (SAPHRIS) SL tablet | Given | 07/04/20 | 10 mg | | | | 10 mg 10 mg, Sublingual, | | 14 8:45 | | | | | NIGHTLY, First dose on Serena | | PM PDT | | | | | 07/04/14 at 2100, Do not crush, | | | | | | | chew, or swallow. Patient should | | | | | | | not eat or drink for 10 minutes | | | | | | | after taking., | | | | | | + +--------+ +-------+------+------+ +---+---+ | | | +---+---+ + +-------+ +-------+---+---+ | atenolol (TENORMIN) tablet 25 | Given | 07/04/20 | 25 mg | | | | mg 25 mg, Oral, NIGHTLY, First | | 14 8:45 | | | | | dose on Tue07/02/14 at 2100 | | PM PDT | | | | + +-------+ +-------+---+---+ +-------+ +-------+---+---+ | Given | 07/03/20 | 25 mg | | | | | 14 8:33 | | | | | | PM PDT | | | | +-------+ +-------+---+---+ | Given | 07/02/20 | 25 mg | | | | | 14 8:15 | | | | | | PM PDT | | | | +-------+ +-------+---+---+ +---+---+ | | | +---+---+ + +---------+ +-----+---+---+ | cefazolin in NS (ANCEF) IVPB 2 | New Bag | 07/03/20 | 2 g | | | | g 2 g, Intravenous, Administer | | 14 1:28 | | | | | over 30 Minutes, EVERY 8 HOURS | | AM PDT | | | | | INTERVAL, First dose on Tue | | | | | | | 07/02/14 at 1800, For 2 doses, | | | | | | | Start 8 hours after previous | | | | | | | dose, Post-op/Phase II | | | | | | + +---------+ +-----+---+---+ +---------+ +-----+---+---+ | New Bag | 07/02/20 | 2 g | | | | | 14 6:17 | | | | | | PM PDT | | | | +---------+ +-----+---+---+ +---+---+ | | | +---+---+ + +-------+ +------+---+---+ | diazepam (VALIUM) injection | Given | 07/02/20 | 5 mg | | | | 2.5-5 mg 2.5-5 mg, Intravenous, | | 14 3:01 | | | | | EVERY 6 HOURS PRN, Muscle spasms, | | PM PDT | | | | | Starting Tue07/02/14 at 1448, | | | | | | | Post-op/Phase II | | | | | | + +-------+ +------+---+---+ +---+---+ | | | +---+---+ + +-------+ +------+---+---+ | diazepam (VALIUM) tablet 5 mg | Given | 07/05/20 | 5 mg | | | | 5 mg, Oral, EVERY 6 HOURS PRN, | | 14 5:13 | | | | | Muscle spasms, Starting Tue | | PM PDT | | | | | 07/02/14 at 1635, Post-op/Phase II | | | | | | + +-------+ +------+---+---+ +-------+ +------+---+---+ | Given | 07/05/20 | 5 mg | | | | | 14 10:02 | | | | | | AM PDT | | | | +-------+ +------+---+---+ | Given | 07/03/20 | 5 mg | | | | | 14 12:15 | | | | | | AM PDT | | | | +-------+ +------+---+---+ +---+---+ | | | +---+---+ + +-------+ + +---+---+ | divalproex (DEPAKOTE) EC tablet | Given | 07/04/20 | 1,250 mg | | | | 1,250 mg 1,250 mg, Oral, | | 14 8:46 | | | | | NIGHTLY, First dose on Tue07/02/14 | | PM PDT | | | | | at 2100, Do not cut or crush., | | | | | | + +-------+ + +---+---+ +-------+ + +---+---+ | Given | 07/03/20 | 1,250 mg | | | | | 14 8:33 | | | | | | PM PDT | | | | +-------+ + +---+---+ | Given | 07/02/20 | 1,250 mg | | | | | 14 8:15 | | | | | | PM PDT | | | | +-------+ + +---+---+ +---+---+ | | | +---+---+ + +-------+ +--------+---+---+ | docusate sodium (COLACE) | Given | 07/05/20 | 100 mg | | | | capsule 100 mg 100 mg, Oral, 2 | | 14 10:02 | | | | | TIMES DAILY, First dose on Tue | | AM PDT | | | | | 07/02/14 at 2100, Hold for loose | | | | | | | stools, Post-op/Phase II | | | | | | + +-------+ +--------+---+---+ +-------+ +--------+---+---+ | Given | 07/04/20 | 100 mg | | | | | 14 8:45 | | | | | | PM PDT | | | | +-------+ +--------+---+---+ | Given | 07/04/20 | 100 mg | | | | | 14 8:17 | | | | | | AM PDT | | | | +-------+ +--------+---+---+ +---+---+ | | | +---+---+ + +-------+ +--------+---+---+ | fentaNYL injection 25-50 mcg | Given | 07/02/20 | 50 mcg | | | | 25-50 mcg, Intravenous, EVERY 5 | | 14 3:39 | | | | | MIN PRN, Pain, Starting Tue | | PM PDT | | | | | 07/02/14 at 1405, Maximum total | | | | | | | dose 250 mcg. PACU IV Narcotic | | | | | | | Priority: Only use fentanyl for | | | | | | | immediate post-op pain (one dose) | | | | | | | or breakthrough pain when any | | | | | | | other IV narcotics ordered have | | | | | | | been ineffective (if ordered). | | | | | | | If both morphine and | | | | | | | hydromorphone are ordered, use | | | | | | | morphine first, and use | | | | | | | hydromporphone if morphine | | | | | | | ineffective., Recovery/Phase I | | | | | | + +-------+ +--------+---+---+ +-------+ +--------+---+---+ | Given | 07/02/20 | 50 mcg | | | | | 14 3:16 | | | | | | PM PDT | | | | +-------+ +--------+---+---+ +---+---+ | | | +---+---+ + +-------+ +---------+---+---+ | HYDROcodone-acetaminophen | Given | 07/05/20 | 2 | | | | (NORCO) 10-325 mg per tablet 1-2 | | 14 6:51 | tablets | | | | tablet 1-2 tablet, Oral, EVERY 4 | | AM PDT | | | | | HOURS PRN, Pain, Starting Tue | | | | | | | 07/02/14 at 1635, If ineffective or | | | | | | | not tolerated use oxycodone if | | | | | | | ordered. MAX 12 tabs/24 hrs, | | | | | | | Post-op/Phase II | | | | | | + +-------+ +---------+---+---+ +-------+ + +---+---+ | Given | 07/04/20 | 2 | | | | | 14 12:49 | tablets | | | | | PM PDT | | | | +-------+ + +---+---+ | Given | 07/04/20 | 1 tablet | | | | | 14 8:17 | | | | | | AM PDT | | | | +-------+ + +---+---+ +---+---+ | | | +---+---+ + +-------+ +--------+---+---+ | HYDROmorphone (DILAUDID) | Given | 07/02/20 | 0.5 mg | | | | injection 0.2-0.5 mg 0.2-0.5 mg, | | 14 3:44 | | | | | Intravenous, EVERY 5 MIN PRN, | | PM PDT | | | | | Pain, Starting Tu07/02/14 at | | | | | | | 1405, Maximum total dose 4 mg. | | | | | | | PACU IV Narcotic Priority: Only | | | | | | | use fentanyl for immediate | | | | | | | post-op pain (one dose) or | | | | | | | breakthrough pain when any other | | | | | | | IV narcotics ordered have been | | | | | | | ineffective (if ordered). If | | | | | | | both morphine and hydromorphone | | | | | | | are ordered, use morphine first, | | | | | | | and use hydromporphone if | | | | | | | morphine ineffective., | | | | | | | Recovery/Phase I | | | | | | + +-------+ +--------+---+---+ +-------+ +--------+---+---+ | Given | 07/02/20 | 0.5 mg | | | | | 14 3:06 | | | | | | PM PDT | | | | +-------+ +--------+---+---+ +---+---+ | | | +---+---+ + +-------+ +---------+---+---+ | levothyroxine (SYNTHROID, | Given | 07/05/20 | 100 mcg | | | | LEVOTHROID) tablet 100 mcg 100 | | 14 6:51 | | | | | mcg, Oral, DAILY BEFORE | | AM PDT | | | | | BREAKFAST, First dose on Tue | | | | | | | 07/02/14 at 1700, Give before | | | | | | | breakfast., | | | | | | + +-------+ +---------+---+---+ +-------+ +---------+---+---+ | Given | 07/04/20 | 100 mcg | | | | | 14 6:56 | | | | | | AM PDT | | | | +-------+ +---------+---+---+ | Given | 07/03/20 | 100 mcg | | | | | 14 6:41 | | | | | | AM PDT | | | | +-------+ +---------+---+---+ +---+---+ | | | +---+---+ + +-------+ +-------+---+---+ | lisinopril (PRINIVIL, ZESTRIL) | Given | 07/05/20 | 10 mg | | | | tablet 10 mg 10 mg, Oral, DAILY, | | 14 10:02 | | | | | First dose on Tue07/02/14 at 1700 | | AM PDT | | | | + +-------+ +-------+---+---+ +-------+ +-------+---+---+ | Given | 07/04/20 | 10 mg | | | | | 14 8:17 | | | | | | AM PDT | | | | +-------+ +-------+---+---+ | Given | 07/03/20 | 10 mg | | | | | 14 8:03 | | | | | | AM PDT | | | | +-------+ +-------+---+---+ +---+---+ | | | +---+---+ + +---------+ +--------+--------+---+ | methocarbamol (ROBAXIN) 750 mg | New Bag | 07/03/20 | 750 mg | 143.3 | | | in sodium chloride 0.9% 100 mL | | 14 9:03 | | mL/hr | | | IVPB 750 mg, Intravenous, | | PM PDT | | | | | Administer over 45 Minutes, EVERY | | | | | | | 8 HOURS (3 times per day), First | | | | | | | dose on Tue07/03/14 at 0745, For | | | | | | | 3 doses | | | | | | + +---------+ +--------+--------+---+ +---------+ +--------+--------+---+ | New Bag | 07/03/20 | 750 mg | 143.3 | | | | 14 1:45 | | mL/hr | | | | PM PDT | | | | +---------+ +--------+--------+---+ +---+---+ | | | +---+---+ + +-------+ + +---+---+ | methocarbamol (ROBAXIN) tablet | Given | 07/05/20 | 1,500 mg | | | | 1,500 mg 1,500 mg, Oral, EVERY 6 | | 14 1:37 | | | | | HOURS PRN, Muscle spasms, | | PM PDT | | | | | Starting 07/02/14 at 1635, | | | | | | | Post-op/Phase II | | | | | | + +-------+ + +---+---+ +-------+ + +---+---+ | Given | 07/05/20 | 1,500 mg | | | | | 14 5:40 | | | | | | AM PDT | | | | +-------+ + +---+---+ | Given | 07/04/20 | 1,500 mg | | | | | 14 5:59 | | | | | | PM PDT | | | | +-------+ + +---+---+ +---+---+ | | | +---+---+ + +---------+ +---+---+---+ | morphine 5 mg/mL FACULTY RESEARCH PHYSICIAN syringe | New Bag | 07/02/20 | | | | | Intravenous, CONTINUOUS, Starting | | 14 3:35 | | | | | 07/02/14 at 1545, for adult | | PM PDT | | | | | patients LESS than 65 years old | | | | | | | and NO risk of sleep apnea, | | | | | | | Post-op/Phase II, Loading | | | | | | | Dose(mg): 0, Starting FACULTY RESEARCH PHYSICIAN | | | | | | | Dose(mg): 1, Incremental Increase | | | | | | | FACULTY RESEARCH PHYSICIAN Dose(mg): 0.5, Maximum FACULTY RESEARCH PHYSICIAN | | | | | | | Dose(mg): 2, Lockout | | | | | | | Interval(min): 10, One Hour | | | | | | | Limit(mg): 15 | | | | | | + +---------+ +---+---+---+ +---+---+ | | | +---+---+ + +-------+ +-------+---+---+ | OLANZapine zydis (zyPREXA | Given | 07/04/20 | 10 mg | | | | ZYDIS) disintegrating tablet 10 | | 14 8:51 | | | | | mg 10 mg, Oral, NIGHTLY, First | | PM PDT | | | | | dose on 07/02/14 at 2115 | | | | | | + +-------+ +-------+---+---+ +-------+ +-------+---+---+ | Given | 07/03/20 | 10 mg | | | | | 14 8:42 | | | | | | PM PDT | | | | +-------+ +-------+---+---+ | Given | 07/02/20 | 10 mg | | | | | 14 9:31 | | | | | | PM PDT | | | | +-------+ +-------+---+---+ +---+---+ | | | +---+---+ + +-------+ +------+---+---+ | ondansetron (ZOFRAN ODT) | Given | 07/04/20 | 4 mg | | | | disintegrating tablet 4 mg 4 mg, | | 14 12:16 | | | | | Oral, EVERY 6 HOURS PRN, Nausea, | | PM PDT | | | | | Vomiting, Starting 07/02/14 at | | | | | | | 1635, First line agent, | | | | | | | Post-op/Phase II | | | | | | + +-------+ +------+---+---+ +-------+ +------+---+---+ | Given | 07/04/20 | 4 mg | | | | | 14 3:13 | | | | | | AM PDT | | | | +-------+ +------+---+---+ +---+---+ | | | +---+---+ + +-------+ +---------+---+---+ | oxyCODONE-acetaminophen | Given | 07/05/20 | 2 | | | | (PERCOCET) 10-325 mg per tablet | | 14 3:44 | tablets | | | | 1-2 tablet 1-2 tablet, Oral, | | PM PDT | | | | | EVERY 4 HOURS PRN, Pain, Starting | | | | | | | 07/05/14 at 1135 | | | | | | + +-------+ +---------+---+---+ +-------+ +---------+---+---+ | Given | 07/05/20 | 2 | | | | | 14 11:45 | tablets | | | | | AM PDT | | | | +-------+ +---------+---+---+ + +---+ | | | + +---+ | oxyCODONE-acetaminophen | | | (PERCOCET) 10-325 mg per tablet | | | Starting 07/05/14 at 1146, For | | | 1 dose, JOE FLETCHER: enoch | | | override, | | + +---+ | | | + +---+ + +-------+ +---------+---+---+ | oxyCODONE-acetaminophen | Given | 07/05/20 | 2 | | | | (PERCOCET) 5-325 mg per tablet | | 14 2:21 | tablets | | | | 1-2 tablet 1-2 tablet, Oral, | | AM PDT | | | | | EVERY 4 HOURS PRN, Pain, Starting | | | | | | | 07/02/14 at 1635, If | | | | | | | ineffective use oxycodone if | | | | | | | ordered. If not tolerated use | | | | | | | NORCO 10/325 if ordered. MAX 12 | | | | | | | tabs/24 hrs., Post-op/Phase II | | | | | | + +-------+ +---------+---+---+ +-------+ +---------+---+---+ | Given | 07/04/20 | 2 | | | | | 14 8:45 | tablets | | | | | PM PDT | | | | +-------+ +---------+---+---+ | Given | 07/04/20 | 2 | | | | | 14 4:31 | tablets | | | | | PM PDT | | | | +-------+ +---------+---+---+ +---+---+ | | | +---+---+ + +-------+ +-------+---+---+ | pantoprazole (PROTONIX) DR | Given | 07/05/20 | 40 mg | | | | tablet 40 mg 40 mg, Oral, 2 | | 14 5:13 | | | | | TIMES DAILY BEFORE MEALS, First | | PM PDT | | | | | dose on Tue07/02/14 at 1715, Do | | | | | | | not cut or crush. Therapeutic | | | | | | | Interchange for omeprazole., | | | | | | + +-------+ +-------+---+---+ +-------+ +-------+---+---+ | Given | 07/05/20 | 40 mg | | | | | 14 6:51 | | | | | | AM PDT | | | | +-------+ +-------+---+---+ | Given | 07/04/20 | 40 mg | | | | | 14 4:30 | | | | | | PM PDT | | | | +-------+ +-------+---+---+ +---+---+ | | | +---+---+ + +-------+ +-------+---+---+ | PARoxetine (PAXIL) tablet 20 mg | Given | 07/05/20 | 20 mg | | | | 20 mg, Oral, DAILY, First dose | | 14 10:03 | | | | | on Tue07/02/14 at 1700 | | AM PDT | | | | + +-------+ +-------+---+---+ +-------+ +-------+---+---+ | Given | 07/04/20 | 20 mg | | | | | 14 8:17 | | | | | | AM PDT | | | | +-------+ +-------+---+---+ | Given | 07/03/20 | 20 mg | | | | | 14 8:04 | | | | | | AM PDT | | | | +-------+ +-------+---+---+ +---+---+ | | | +---+---+ + +-------+ +--------+---+---+ | senna (SENOKOT) tablet 8.6 mg | Given | 07/05/20 | 8.6 mg | | | | 8.6 mg, Oral, 2 TIMES DAILY, | | 14 10:02 | | | | | First dose on Tue07/02/14 at 2100, | | AM PDT | | | | | If docusate ineffective or not | | | | | | | ordered, give BID until BM, then | | | | | | | PRN. Hold for loose stools, | | | | | | | Post-op/Phase II | | | | | | + +-------+ +--------+---+---+ +-------+ +--------+---+---+ | Given | 07/04/20 | 8.6 mg | | | | | 14 8:45 | | | | | | PM PDT | | | | +-------+ +--------+---+---+ | Given | 07/04/20 | 8.6 mg | | | | | 14 8:17 | | | | | | AM PDT | | | | +-------+ +--------+---+---+ +---+---+ | | | +---+---+ + +---------+ +---+-------+---+ | sodium chloride 0.9% (NS) | New Bag | 07/02/20 | | 100 | | | infusion at 100 mL/hr, | | 14 6:18 | | mL/hr | | | Intravenous, CONTINUOUS, Starting | | PM PDT | | | | | 07/02/14 at 1015, Pre-op | | | | | | + +---------+ +---+-------+---+ +---------+ +---+-------+---+ | New Bag | 07/02/20 | | 100 | | | | 14 10:51 | | mL/hr | | | | AM PDT | | | | +---------+ +---+-------+---+ +---+---+ | | | +---+---+ documented in this encounter
--- OUTSIDE RECORDS SUMMARY | ~2019-09-18 | XMS | Encounter Summary ---
Demographics + + + | Address | [address] | | | [place] [address] | + + + | Home Phone [...] [place] | | | | | [address] | | + + + + + Care Team Providers + +------+ + | Care Dietary Worker Name | Role | Phone | [...] | Frandy Simons DO | [address] | | | | | of skin | [address] | [place], | | | | | sensation | [address] | [place] | | | | | Arthrodesis | [place], [place] | [address] | | | | | status Left | [address] | Phone: | | | | | leg | Phone: | [phone] | | | | | weakness | [phone] | Fax: | | | | | Procedures | Fax: | [phone] | | | | | MRI Lumbar | [phone] | | | | | | Spine [...] | Frandy Simons DO | [address] | | | | | of skin | [address] | [place], | | | | | sensation | [address] | [place] | | | | | Arthrodesis | [place] | [address] | | | | | status Left | [address] | Phone: | | | | | leg | Phone: | [phone] | | | | | weakness | [phone] | Fax: | | | | | Procedures | Fax: | [phone] | | | | | MRI Lumbar | [phone] | | | | | | Spine wo | | | | | | | Contrast | | | +--------+--------+ + + + + Encounter Details +--------+ + + + + | Date | Type | Department | Care Team | Description | +--------+ + + + + | 08/19/ | Hospital | [facility] | Frandy Teresa, | Status post lumbar | | 2013 | Encounter | MED CTR MRI [address] | DO [address] | spinal fusion; Left | | | | [address] [place], | [address] [place] | leg numbness; Left | | | | [place] [address] | [address] | leg weakness | | | | [phone] | | | +--------+ + + + [...] + + + +---------+ + + | [place]-3 Fatty | Take 1,000 mg by | [...] [place] | | | | | | [address] | | | | | | | [...] the round structure with high T1 and [id number] in the right L3 vertebral | | [...] + | MISCELLANEOUS LAB | | | [phone] | + +---------+ + + | MISCELANIOUS LAB | | | [phone] | + +---------+ + + documented in [...]
--- OUTSIDE RECORDS SUMMARY | ~2019-09-18 | XMS | Encounter Summary ---
Demographics + + + | Address | [address] | | | [place] [address] | + + + | Home Phone [...] [place] | | | | | [address] | | + + + + + Care Team Providers + +------+ + | Care Crocodile Farmer Name | Role | Phone | [...] | | | | | pain, | [place], [place] | | | | | | bilateral | [address] | | | | | | Degenerative | Phone: | | | | | | disc | [phone] | | | | | | disease, | Fax: | | | | | | lumbar | [phone] | | | | | | Spinal [...] [address] | [address] [place], [place] | (Primary Dx); Knee | | | | [place], [place] | [address] | pain, bilateral; | | | | [address] | | DEGENERATIVE DISC | | | | [phone] | | DISEASE, LUMBAR | | | [...] | | | | | [place] | | | | | | [address] | | | | | | | [...]
--- OUTSIDE RECORDS SUMMARY | ~2019-09-18 | XMS | Encounter Summary ---
Demographics + + + | Address | [address] | | | [place] [address] | + + + | Home Phone | | + + + | Preferred Language | Unknown | + + + | Marital Status | Single | + + + | Confucianism Affiliation | Unknown | + + + [...] [place] | | | | | [address] | | + + + + + Care Team Providers + +------+ + | Care Photographs Curator Name | Role | Phone | + [...] | Transcriptions | + + | Interface, [place] In - 10/24/2006 3:09 AM PST | | [facility] | | [address] [place], [place] [address] [place] | | [facility] HospitalOPERATION RECORDMed Rec No.: [id number] Date: | | [...]
--- OUTSIDE RECORDS SUMMARY | ~2019-09-18 | XMS | Encounter Summary ---
Demographics + + + | Address | [address] | | | [place] [address] | + + + | Home Phone | | + + + | Preferred Language | Unknown | + + + | Marital Status | | + + + | Rastafarian Affiliation | 1013 | + + + | Race | Unknown | + + + | Ethnic Group | Unknown | + + + Author + + + | Author | [facility] | | | and [place] | + + + | Organization | [facility] | [...] [place] | | | | | [address] | | + + + + + Care Team Providers + +------+ + | Care Child Welfare Manager Name | Role | Phone | [...] [address] | [address] [place], [place] | | | | | [place], [place] | [id number] | | | | | [address] | | | | | | [phone] | | | +--------+ + + + [...] | | | | | [place] [place] | | | | | | [address] | | | | | | | | +--------+---------+ + + + documented as of this encounter Visit Diagnoses Not on filedocumented in this encounter"
--- OUTSIDE RECORDS SUMMARY | ~2019-09-18 | XMS | Encounter Summary ---
Demographics + + + | Address | [address] | | | [place] [address] | + + + | Home Phone [...] [place], [place] | | | | | [address] | | + + + + + Care Team Providers + +------+ + | Care Explosives Worker Name | Role | Phone | + +------+ + PCP | Unavailable | + +------+ + Encounter Details +--------+ + + + + | Date | Type | Department | Care Team | Description | +--------+ + + + + | 01/25/ | Hospital | [facility] | | | | 2002 | Encounter | MED CTR XRAY [address] | | | | | | [place] | | | | | | [place] [address] | | | | | | [phone] | | | +--------+ + + + [...] | | | | | | [place] | | | | | | [address] | | | | | | | | +--------+---------+ + + + documented as of this encounter Visit Diagnoses Not on filedocumented in this encounter"
--- OUTSIDE RECORDS SUMMARY | ~2019-09-18 | XMS | Encounter Summary ---
Demographics + + + | Address | [address] | | | [place] [address] | + + + | Home Phone [...] [place] | | | | | [address] | | + + + + + Care Team Providers + +------+ + | Care Voyage Management System Operator Name | Role | Phone [...] + | 11/25/ | Telephone | [facility] | Frandy Teresa, | Medication Refill | | 2015 | | [address] | DO [address] | Assistance | | | | [address] | [address] [place], [place] | | | | | [place], [place] | [address] | | | | | [address] | | | | | | [phone] | | | +--------+ + + + [...] | | | | | [place] | | | | | | [address] | | | | | | | | +--------+---------+ + + + documented as of this encounter Visit Diagnoses Not on filedocumented in this encounter"
--- OUTSIDE RECORDS SUMMARY | ~2019-09-18 | XMS | Encounter Summary ---
Demographics + + + | Address | [address] | | | [place] [address] | + + + | Home Phone [...] [place] | | | | | [address] | | + + + + + Care Team Providers + +------+ + | Care Racquet Maker Name | Role | Phone | [...] Description | +--------+--------+ + + + | 08/26/ | Refill | [facility] | Frandy Teresa, | Medication Refill | | 2013 | | [address] | DO [address] | | | | | [address] | [address] [place], [place] | | | | | [place], [place] | [address] | | | | | [address] | | | | | | [phone] | | | +--------+--------+ + + + [...] | | | | | [place] | | | | | | [address] | | | | | | | | +--------+---------+ + + + documented as of this encounter Visit Diagnoses Not on filedocumented in this encounter"
--- OUTSIDE RECORDS SUMMARY | ~2019-09-18 | XMS | Encounter Summary ---
Demographics + + + | Address | [address] | | | [place] [address] | + + + | Home Phone [...] [place] | | | | | [address] | | + + + + + Care Team Providers + +------+ + | Care Cytometry Technologist Name | Role | Phone | [...] + | 11/25/ | Telephone | [facility] | Frandy Teresa, | Medication Refill | | 2015 | | [address] | DO [address] | Assistance | | | | [address] | [address] [place], [place] | | | | | [place], [place] | [address] | | | | | [address] | | | | | | [phone] | | | +--------+ + + + [...] | | | | | [place] | | | | | | [address] | | | | | | | | +--------+---------+ + + + documented as of this encounter Visit Diagnoses Not on filedocumented in this encounter"
--- OUTSIDE RECORDS SUMMARY | ~2019-09-18 | XMS | Encounter Summary ---
Demographics + + + | Address | [address] | | | [place] [address] | + + + | Home Phone [...] [place] | | | | | [address] | | + + + + + Care Team Providers + +------+ + | Care Needle Punch Machine Operator Name | Role | Phone | + +------+ + | Adriano Patrick MD | PCP | | + +------+ + Encounter Details +--------+ + + + + | Date | Type | Department | Care Team | Description | +--------+ + + + + | 06/10/ | Abstract | [facility] | Thierry Fry | | | 2014 | | MEDICINE [address] | MD [address] | | | | [address] [place] | [address] [place] [address] | | | | | [place] [address] | [id number] | | | | | [phone] | | | +--------+ + + + [...] | | | | | [place] | | | | | | [id number] | | | | | | | | +--------+---------+ + + + documented as of this encounter Procedures + +--------+ + + + | Procedure Name | Priori | Date/Time | Associated Diagnosis | Comments | | | ty | | | | + +--------+ + + + | EXTERNAL LAB: | Routin | 02/26/2015 | | Results for this | | GLUCOSE | e | | | procedure are in the | | | | | | results section. | + +--------+ + + + | EXTERNAL LAB: | Routin | 02/26/2015 | | Results for this | | ALBUMIN | e | | | procedure are in the | | | | | | results section. | + +--------+ + + + | EXTERNAL LAB: | Routin | 02/26/2015 | | Results for this | | PROTEIN, TOTAL | e | | | procedure are in the | | | | | | results section. | + +--------+ + + + | EXTERNAL LAB: | Routin | 02/26/2015 | | Results for this | | CALCIUM | e | | | procedure are in the | | | | | | results section. | + +--------+ + + + | EXTERNAL LAB: CARBON | Routin | 02/26/2015 | | Results for this | | DIOXIDE | e | | | procedure are in the | | | | | | results section. | + +--------+ + + + | EXTERNAL LAB: | Routin | 02/26/2015 | | Results for this | | CHLORIDE | e | | | procedure are in the | | | | | | results section. | + +--------+ + + + | EXTERNAL LAB: | Routin | 02/26/2015 | | Results for this | | POTASSIUM | e | | | procedure are in the | | | | | | results section. | + +--------+ + + + | EXTERNAL LAB: SODIUM | Routin | 02/26/2015 | | Results for this | | | e | | | procedure are in the | | | | | | results section. | + +--------+ + + + | EXTERNAL LAB: | Routin | 02/26/2015 | | Results for this | | FERRITIN | e | | | procedure are in the | | | | | | results section. | + +--------+ + + + | EXTERNAL LAB: CBC | Routin | 02/26/2015 | | Results for this | | | e | | | procedure are in the | | | | | | results section. | + +--------+ + + + | EXTERNAL LAB: EGFR | Routin | 02/26/2015 | | Results for this | | | e | | | procedure are in the | | | | | | results section. | + +--------+ + + + | EXTERNAL LAB: | Routin | 02/26/2015 | | Results for this | | CREATININE | e | | | procedure are in the | | | | | | results section. | + +--------+ + + + | EXTERNAL LAB: PTT | Routin | 02/17/2015 | | Results for this | | | e | | | procedure are in the | | | | | | results section. | + +--------+ + + + | EXTERNAL LAB: ALT | Routin | 02/17/2015 | | Results for this | | | e | | | procedure are in the | | | | | | results section. | + +--------+ + + + | EXTERNAL LAB: AST | Routin | 02/17/2015 | | Results for this | | | e | | | procedure are in the | | | | | | results section. | + +--------+ + + + | EXTERNAL LAB: | Routin | 02/17/2015 | | Results for this | | ALKALINE PHOSPHATASE | e | | | procedure are in the | | | | | | results section. | + +--------+ + + + | EXTERNAL LAB: | Routin | 02/17/2015 | | Results for this | | BILIRUBIN, TOTAL | e | | | procedure are in the | | | | | | results section. | + +--------+ + + + | EXTERNAL LAB: | Routin | 02/17/2015 | | Results for this | | PROTIME INR | e | | | procedure are in the | | | | | | results section. | + +--------+ + + + | EXTERNAL LAB: IRON | Routin | 02/03/2015 | | Results for this | | TOTAL | e | | | procedure are in the | | | | | | results section. | + +--------+ + + + | EXTERNAL LAB: | Routin | 12/30/2014 | | Results for this | | MAGNESIUM | e | | | procedure are in the | | | | | | results section. | + +--------+ + + + | EXTERNAL LAB: | Routin | 07/29/2014 | | Results for this | | TRIGLYCERIDES | e | | | procedure are in the | | | | | | results section. | + +--------+ + + + | EXTERNAL LAB: | Routin | 07/29/2014 | | Results for this | | CHOLESTEROL, HDL | e | | | procedure are in the | | | | | | results section. | + +--------+ + + + | EXTERNAL LAB: | Routin | 07/29/2014 | | Results for this | | CHOLESTEROL, TOTAL | e | | | procedure are in the | | | | | | results section. | + +--------+ + + + | EXTERNAL LAB: | Routin | 07/29/2014 | | Results for this | | CHOLESTEROL, LDL | e | | | procedure are in the | | | | | | results section. | + +--------+ + + + | HEMOGLOBIN A1C | Routin | 07/29/2014 | | Results for this | | | e | | | procedure are in the | | | | | | results section. | + +--------+ + + + documented in this encounter Results External Lab: Glucose (02/26/2015) + +-------+ + + + | Component | Value | Ref Range | Performed | Pathologist | | | | | At | Signature | + +-------+ + + + | Glucose, | 105 | | | | | External | | | | | + +-------+ + + + External Lab: Albumin (02/26/2015) + +-------+ + + + | Component | Value | Ref Range | Performed | Pathologist | | | | | At | Signature | + +-------+ + + + | Albumin, | 4.0 | | | | | External | | | | | + +-------+ + + + External Lab: Protein, Total (02/26/2015) + +-------+ + + + | Component | Value | Ref Range | Performed | Pathologist | | | | | At | Signature | + +-------+ + + + | Protein, | 6.3 | | | | | Total, | | | | | | External | | | | | + +-------+ + + + External Lab: Calcium (02/26/2015) + +-------+ + + + | Component | Value | Ref Range | Performed | Pathologist | | | | | At | Signature | + +-------+ + + + | Calcium, | 9.5 | | | | | External | | | | | + +-------+ + + + External Lab: Carbon Dioxide (02/26/2015) + +-------+ + + + | Component | Value | Ref Range | Performed | Pathologist | | | | | At | Signature | + +-------+ + + + | Carbon | 27 | | | | | Dioxide, | | | | | | External | | | | | + +-------+ + + + External Lab: Chloride (02/26/2015) + +-------+ + + + | Component | Value | Ref Range | Performed | Pathologist | | | | | At | Signature | + +-------+ + + + | Chloride, | 94 | | | | | External | | | | | + +-------+ + + + External Lab: Potassium (02/26/2015) + +-------+ + + + | Component | Value | Ref Range | Performed | Pathologist | | | | | At | Signature | + +-------+ + + + | Potassium, | 4.1 | | | | | External | | | | | + +-------+ + + + External Lab: Sodium (02/26/2015) + +-------+ + + + | Component | Value | Ref Range | Performed | Pathologist | | | | | At | Signature | + +-------+ + + + | Sodium, | 132 | | | | | External | | | | | + +-------+ + + + External Lab: Ferritin (02/26/2015) + +-------+ + + + | Component | Value | Ref Range | Performed | Pathologist | | | | | At | Signature | + +-------+ + + + | Ferritin, | 10.67 | | | | | External | | | | | + +-------+ + + + External Lab: CBC (02/26/2015) + +-------+ + + + | Component | Value | Ref Range | Performed | Pathologist | | | | | At | Signature | + +-------+ + + + | WBC, | 6.7 | | | | | External | | | | | + +-------+ + + + | HGB, | 10.9 | | | | | External | | | | | + +-------+ + + + | HCT, | 35.2 | | | | | External | | | | | + +-------+ + + + | PLT, | 303 | | | | | External | | | | | + +-------+ + + + | Neutrophils | 58.4 | | | | | %, | | | | | | External | | | | | + +-------+ + + + | Lymphocytes | 30.8 | | | | | %, | | | | | | External | | | | | + +-------+ + + + | Monocytes | 8.5 | | | | | %, External | | | | | + +-------+ + + + | Eosinophils | 1.9 | | | | | %, | | | | | | External | | | | | + +-------+ + + + | RBC, | 4.29 | | | | | External | | | | | + +-------+ + + + | MCV, | 82 | | | | | External | | | | | + +-------+ + + + | RDW, | 16.5 | | | | | External | | | | | + +-------+ + + + External Lab: eGFR (02/26/2015) + +-------+ + + + | Component | Value | Ref Range | Performed | Pathologist | | | | | At | Signature | + +-------+ + + + | eGFR, | 93 | | | | | External | | | | | + +-------+ + + + + + | Specimen | + + | Blood specimen | | (specimen) | + + External Lab: Creatinine (02/26/2015) + +-------+ + + + | Component | Value | Ref Range | Performed | Pathologist | | | | | At | Signature | + +-------+ + + + | Creatinine, | 0.65 | | | | | External | | | | | + +-------+ + + + + + | Specimen | + + | Blood specimen | | (specimen) | + + External Lab: PTT (02/17/2015) + +-------+ + + + | Component | Value | Ref Range | Performed | Pathologist | | | | | At | Signature | + +-------+ + + + | PTT, | 18.8 | | | | | External | | | | | + +-------+ + + + External Lab: ALT (02/17/2015) + +-------+ + + + | Component | Value | Ref Range | Performed | Pathologist | | | | | At | Signature | + +-------+ + + + | ALT, | 20 | | | | | External | | | | | + +-------+ + + + External Lab: AST (02/17/2015) + +-------+ + + + | Component | Value | Ref Range | Performed | Pathologist | | | | | At | Signature | + +-------+ + + + | AST, | 16 | | | | | External | | | | | + +-------+ + + + External Lab: Alkaline Phosphatase (02/17/2015) + +-------+ + + + | Component | Value | Ref Range | Performed | Pathologist | | | | | At | Signature | + +-------+ + + + | ALP, | 70 | | | | | External | | | | | + +-------+ + + + External Lab: Bilirubin, Total (02/17/2015) + +-------+ + + + | Component | Value | Ref Range | Performed | Pathologist | | | | | At | Signature | + +-------+ + + + | Bilirubin, | 0.2 | | | | | Total, | | | | | | External | | | | | + +-------+ + + + External Lab: Protime INR (02/17/2015) + +-------+ + + + | Component | Value | Ref Range | Performed | Pathologist | | | | | At | Signature | + +-------+ + + + | INR, | 0.9 | | | | | External | | | | | + +-------+ + + + | PT, | 13.0 | | | | | External | | | | | + +-------+ + + + + + | Specimen | + + | Blood specimen | | (specimen) | + + External Lab: Iron Total (02/03/2015) + +-------+ + + + | Component | Value | Ref Range | Performed | Pathologist | | | | | At | Signature | + +-------+ + + + | Iron, | 89 | | | | | External | | | | | + +-------+ + + + External Lab: Magnesium (12/30/2014) + +-------+ + + + | Component | Value | Ref Range | Performed | Pathologist | | | | | At | Signature | + +-------+ + + + | Magnesium, | 2.0 | | | | | External | | | | | + +-------+ + + + Hemoglobin A1C (07/29/2014) + +-------+ + + + | Component | Value | Ref Range | Performed | Pathologist | | | | | At | Signature | + +-------+ + + + | Hemoglobin | 6.0 | | | | | A1c, | | | | | | external | | | | | + +-------+ + + + + + | Specimen | + + | Blood specimen | | (specimen) | + + External Lab: Triglycerides (07/29/2014) + +-------+ + + + | Component | Value | Ref Range | Performed | Pathologist | | | | | At | Signature | + +-------+ + + + | Triglycerid | 143 | | | | | es, | | | | | | External | | | | | + +-------+ + + + + + | Specimen | + + | Blood specimen | | (specimen) | + + External Lab: Cholesterol, HDL (07/29/2014) + +-------+ + + + | Component | Value | Ref Range | Performed | Pathologist | | | | | At | Signature | + +-------+ + + + | HDL | 55.2 | mg/dl | | | | Cholesterol | | | | | | , External | | | | | + +-------+ + + + + + | Specimen | + + | Blood specimen | | (specimen) | + + External Lab: Cholesterol, Total (07/29/2014) + +-------+ + + + | Component | Value | Ref Range | Performed | Pathologist | | | | | At | Signature | + +-------+ + + + | Cholesterol | 187 | mg/dl | | | | , Total, | | | | | | External | | | | | + +-------+ + + + + + | Specimen | + + | Blood specimen | | (specimen) | + + External Lab: Cholesterol, LDL (07/29/2014) + +-------+ + + + | Component | Value | Ref Range | Performed | Pathologist | | | | | At | Signature | + +-------+ + + + | LDL | 103 | | | | | Cholesterol | | | | | | , Direct, | | | | | | External | | | | | + +-------+ + + + + + | Specimen | + + | Blood specimen | | (specimen) | + + documented in this encounter Visit Diagnoses Not on filedocumented in this encounter"
--- OUTSIDE RECORDS SUMMARY | ~2019-09-18 | XMS | Encounter Summary ---
Demographics + + + | Address | [address] | | | [place] [address] | + + + | Home Phone [...] [place], [place] | | | | | [address] | | + + + + + Care Team Providers + +------+ + | Care Scientific Illustrator Name | Role | Phone | + +------+ + PCP | Unavailable | + +------+ + Encounter Details +--------+ + + + + | Date | Type | Department | Care Team | Description | +--------+ + + + + | 12/27/ | Hospital | [facility] | | | | 1997 - | Encounter | MED CTR GENERIC PSY | | | | | | CONV DEPT [address] | | | | 01/01/ | | [place], | | | | 1997 | | [place] [address] | | | | | | [phone] | | | +--------+ + + + [...] [place] | | | | | | [address] | | | | | | | | +--------+---------+ + + + documented as of this encounter Visit Diagnoses Not on filedocumented in this encounter"
--- OUTSIDE RECORDS SUMMARY | ~2019-09-18 | XMS | Encounter Summary ---
Demographics + + + | Address | [address] | | | [place] [address] | + + + | Home Phone [...] [place], [place] | | | | | [address] | | + + + + + Care Team Providers + +------+ + | Care Dial Brusher Name | Role | Phone | + +------+ + PCP | Unavailable | + +------+ + Encounter Details +--------+ + + + + | Date | Type | Department | Care Team | Description | +--------+ + + + + | 12/27/ | Hospital | [facility] | | | | 1995 | Encounter | MED CTR LABORATORY | | | | | | [address] | | | | | | [place] | | | | | | [address] | | | | | | [phone] | | | +--------+ + + + [...] | | | | | [place] | | | | | | [address] | | | | | | | | +--------+---------+ + + + documented as of this encounter Visit Diagnoses Not on filedocumented in this encounter"
--- OUTSIDE RECORDS SUMMARY | ~2019-09-18 | XMS | Encounter Summary ---
Demographics + + + | Address | [address] | | | [place] [address] | + + + | Home Phone [...] [place], [place] | | | | | [address] | | + + + + + Care Team Providers + +------+ + | Care Heavy Rail Train Operator Name | Role | Phone | + +------+ + PCP | Unavailable | + +------+ + Encounter Details +--------+ + + + + | Date | Type | Department | Care Team | Description | +--------+ + + + + | 07/17/ | Hospital | [facility] | | | | 1997 - | Encounter | MED CTR GENERIC PSY | | | | | | CONV DEPT [address] | | | | 07/25/ | | [address], | | | | 1997 | | [place] [address] | | | | | | [phone] | | | +--------+ + + + [...] [place] | | | | | | [address] | | | | | | | | +--------+---------+ + + + documented as of this encounter Visit Diagnoses Not on filedocumented in this encounter"
--- OUTSIDE RECORDS SUMMARY | ~2019-09-18 | XMS | Encounter Summary ---
Demographics + + + | Address | [address] | | | [place] [address] | + + + | Home Phone [...] Author | [facility] | | | and [...] [place], [place] | | | | | [address] | | + + + + + Care Team Providers + +------+ + | Care Otorhinolaryngologist Name | Role | Phone | + +------+ + PCP | Unavailable | + +------+ + Encounter Details +--------+ + + + + | Date | Type | Department | Care Team | Description | +--------+ + + + + | 06/30/ | Hospital | [facility] | | | | 2000 | Encounter | MED CTR EMERGENCY | | | | | | [address] | | | | | | [place] | | | | | | [address] | | | | | | [phone] | | | +--------+ + + + [...] | | | | | [place] | | | | | | [address] | | | | | | | | +--------+---------+ + + + documented as of this encounter Visit Diagnoses Not on filedocumented in this encounter"
--- OUTSIDE RECORDS SUMMARY | ~2019-09-18 | XMS | Encounter Summary ---
Demographics + + + | Address | [address] | | | [place] [address] | + + + | Home Phone | | + + + | Preferred Language | Unknown | + + + | Marital Status | | + + + | Mormonism Affiliation | [id number] | + + + | Race | Unknown | + + + | Ethnic Group | Unknown | + + + Author + + + | Author | [facility] | | | [facility] [place] | + + + | Organization | [facility] | | [facility] [place] | + + + | Address | Unknown | + + + | Phone | Unavailable | + + + Support + + + + + | Name | Relationship | Address | Phone | + + + + + | Araceli Sibley | ECON | [place] | | | | | [address] | | + + + + + Care Team Providers + +------+ + | Care Flight Engineer Instructor Name | Role | Phone | [...] + + | 01/02/ | Telephone | [facility] | Frandy Teresa, | Other (6m x-ray ) | | 2014 | | NEUROSURGERY [address] | DO [address] | | | | | [address] | [address] [place], [place] | | | | | [place], [place] | [id number] | | | | | [address] | | | | | | [phone] | | | +--------+ + + + [...] [place] | | | | | | [address] | | | | | | | | +--------+---------+ + + + documented as of this encounter Visit Diagnoses Not on filedocumented in this encounter"
--- OUTSIDE RECORDS SUMMARY | ~2019-09-18 | XMS | Encounter Summary ---
Demographics + + + | Address | [address] | | | [place] [address] | + + + | Home Phone [...] [place] | | | | | [address] | | + + + + + Care Team Providers + +------+ + | Care Yeast Maker Name | Role | Phone | [...] + + | 08/22/ | Documentati | [facility] | Katharine Moncada, | Other (urgent | | 2019 | on | CARDIOLOGY [place] | Technologist | report) | | | | [address] | | | | | | [place] | | | | | | [address] | | | | | | [phone] | | | +--------+ + + + [...] [place] | | | | | | [address] | | | | | | | | +--------+---------+ + + + documented as of this encounter Visit Diagnoses Not on filedocumented in this encounter"
--- OUTSIDE RECORDS SUMMARY | ~2019-09-18 | XMS | Encounter Summary ---
Demographics + + + | Address | [address] | | | [place] [address] | + + + | Home Phone [...] [place] | | | | | [address] | | + + + + + Care Team Providers + +------+ + | Care Scientific Programmer Analyst Name | Role | Phone [...] + + | 08/20/ | Documentati | [facility] | Katharine Moncada, | Other (urgent | | 2019 | on | CARDIOLOGY [place] | Technologist | report) | | | | [address] | | | | | | [place] | | | | | | [address] | | | | | | [phone] | | | +--------+ + + + [...] [place] | | | | | | [address] | | | | | | | | +--------+---------+ + + + documented as of this encounter Visit Diagnoses Not on filedocumented in this encounter"
--- OUTSIDE RECORDS SUMMARY | ~2019-09-18 | XMS | Encounter Summary ---
Demographics + + + | Address | [address] | | | [place] [address] | + + + | Home Phone [...] [place] | | | | | [address] | | + + + + + Care Team Providers + +------+ + | Care Process Consultant Name | Role | Phone | [...] [address] | [address] [place], [place] | (Primary Dx) | | | | [place] | [address] | | | | | [address] | | | | | | [phone] | | | +--------+ + + + [...] [place] | | | | | | [address] | | | | | | | [...] + | MISCELLANEOUS LAB | | | [phone] | + +---------+ + + | MISCELANIOUS LAB | | | [phone] | + +---------+ + + documented in this encounter Visit Diagnoses + + | Diagnosis | + + | Status post lumbar spinal fusion - Primary Arthrodesis status | + + documented in this encounter"
--- OUTSIDE RECORDS SUMMARY | ~2019-09-18 | XMS | Encounter Summary ---
Demographics + + + | Address | [address] | | | [place] [address] | + + + | Home Phone [...] [place] | | | | | [address] | | + + + + + Care Team Providers + +------+ + | Care Semiconductor Processing Group Leader Name | Role | Phone | + +------+ + | Natalee Andersen NP | PCP | | + +------+ + Encounter Details +--------+ + + + + | Date | Type | Department | Care Team | Description | +--------+ + + + + | 05/02/ | Hospital | [facility] | Frandy Teresa, | Back pain | | 2014 | Encounter | MED CTR XRAY [address] | DO [address] | | | | | [place] | [address] [place] | | | | | [place] [address] | [address] | | | | | [phone] | | | +--------+ + + + [...] | | | | | [place] | | | | | | [address] | | | | | | | [...] + | MISCELLANEOUS LAB | | | [phone] | + +---------+ + + | MISCELANIOUS LAB | | | [phone] | + +---------+ + + documented in this encounter Visit Diagnoses + + | Diagnosis | + + | Back pain Backache, unspecified | + + documented in this encounter"
--- OUTSIDE RECORDS SUMMARY | ~2019-09-18 | XMS | Encounter Summary ---
Demographics + + + | Address | [address] | | | [place] [address] | + + + | Home Phone [...] + + | Author | [facility] | | | and [place] | + + + | Organization | [facility] | | | and [place] | + + + | Address | Unknown | + + + | Phone | Unavailable | + + + Support + + + + + | Name | Relationship | Address | Phone | + + + + + | Araceli Sibley | ECON | [place] | | | | | [address] | | + + + + + Care Team Providers + +------+ + | Care Optomechanical Engineer Name | Role | Phone | [...] + + | 04/05/ | Telephone | [facility] [place] | [facility], | Results | | 2012 | | GASTROENTEROLOGY | [address]UNAT[address] Thomas [address] | | | | | [address] | [place], [address] | | | | | [address] [place], [place] | [place], [place] | | | | | [address] | [address] | | | | | [phone] | | | +--------+ + + + [...] [place] | | | | | | [address] | | | | | | | | +--------+---------+ + + + documented as of this encounter Visit Diagnoses Not on filedocumented in this encounter"
--- OUTSIDE RECORDS SUMMARY | ~2019-09-18 | XMS | Encounter Summary ---
Demographics + + + | Address | [address] | | | [place] [address] | + + + | Home Phone [...] [place] | | | | | [address] | | + + + + + Care Team Providers + +------+ + | Care Client Integration Manager Name | Role | Phone | [...] + + | 07/30/ | Telephone | [facility] | Ashley Chávez | Talia (Patient | | 2019 | | CARDIOLOGY [place] Abad, Electrotyper | mariela ) | | | | [address] | | | | | | [place], [place] | | | | | | [address] | | | | | | [phone] | | | +--------+ + + + [...] [place] | | | | | | [address] | | | | | | | | +--------+---------+ + + + documented as of this encounter Visit Diagnoses Not on filedocumented in this encounter"
--- OUTSIDE RECORDS SUMMARY | ~2019-09-18 | XMS | Encounter Summary ---
Demographics + + + | Address | [address] | | | [place] [address] | + + + | Home Phone | | + + + | Preferred Language | Unknown | + + + | Marital Status | Single | + + + | Sabianism Affiliation | Unknown | + + + [...] [place] | | | | | [address] | | + + + + + Care Team Providers + +------+ + | Care Gunstock Spray Unit Adjuster Name | Role | Phone | [...] | Transcriptions | + + | Interface, Collection Clerk In - 10/24/2006 3:09 AM PST | | [facility] | | Road [place], [place] [address] [place] | | [facility] HospitalOPERATION RECORDMed Rec No.: [id number] Date: | [...]
--- OUTSIDE RECORDS SUMMARY | ~2019-09-18 | XMS | Encounter Summary ---
Demographics + + + | Address | [address] | | | [place] [address] | + + + | Home Phone [...] [place] | | | | | [address] | | + + + + + Care Team Providers + +------+ + | Care Associate Professor Of Mathematics Name | Role | Phone | + [...] [address] | | | | | [place], [place] | Shaheen Simons | | | | | [address] | [place] [address] | | | | | [phone] | [phone] | | | | | | | [...] [place] | | | | | | [address] | | | | | | | [...] GIVEN Testing | | | performed at [facility];[address] [place] [address] CULTURE | | | 50,000 TO 100,000 CFU/ML | | | MIXED GRAM POSITIVE HAIDER NO SUSCEPTIBILITY TO FOLLOW | | | MULTIPLE ORGANISM TYPES PRESENT, | | | SUGGESTIVE OF CONTAMINATION OR COLONIZATION. SUGGEST RECOLLECTION FOR | | | CULTURE. Testing | | | performed at [facility];[address] [place] [address];[place] [address] REPORT | | | STATUS 06/08/2012 FINAL [...]
--- OUTSIDE RECORDS SUMMARY | ~2019-09-18 | XMS | Encounter Summary ---
Demographics + + + | Address | [address] | | | [place] [address] | + + + | Home Phone [...] [place], [place] | | | | | [address] | | + + + + + Care Team Providers + +------+ + | Care Trash Collector Name | Role | Phone | + +------+ + PCP | Unavailable | + +------+ + Encounter Details +--------+ + + + + | Date | Type | Department | Care Team | Description | +--------+ + + + + | 07/17/ | Hospital | [facility] | | | | 1997 - | Encounter | MED CTR GENERIC PSY | | | | | | CONV DEPT [address] | | | | 07/25/ | | [address], | | | | 1997 | | [place] [address] | | | | | | [phone] | | | +--------+ + + + [...] [place] | | | | | | [address] | | | | | | | | +--------+---------+ + + + documented as of this encounter Visit Diagnoses Not on filedocumented in this encounter"
--- OUTSIDE RECORDS SUMMARY | ~2019-09-18 | XMS | Encounter Summary ---
Demographics + + + | Address | [address] | | | [place] [address] | + + + | Home Phone [...] [place] | | | | | [address] | | + + + + + Care Team Providers + +------+ + | Care Biology Specialist Name | Role | Phone | [...] + + | 09/10/ | Documentati | [facility] | Katharine Moncada, | Other (urgent | | 2019 | on | CARDIOLOGY [place] | Technologist | report) | | | | [address] | | | | | | [place] | | | | | | [address] | | | | | | [phone] | | | +--------+ + + + [...] [place] | | | | | | [address] | | | | | | | | +--------+---------+ + + + documented as of this encounter Visit Diagnoses Not on filedocumented in this encounter"
--- OUTSIDE RECORDS SUMMARY | ~2019-09-18 | XMS | Encounter Summary ---
Demographics + + + | Address | [address] | | | [place] [address] | + + + | Home Phone | | + + + | Preferred Language | Unknown | + + + | Marital Status | | + + + | Congregation Affiliation | 1013 | + + + | Race | Unknown | + + + | Ethnic Group | Unknown | + + + Author + + + | Author | [facility] | | | and [place] | + + + | Organization | [facility] | | | and [place] | + + + | Address | Unknown | + + + | Phone | Unavailable | + + + Support + + + + + | Name | Relationship | Address | Phone | + + + + + | Araceli Sibley | ECON | [place], [place] | | | | | [address] | | + + + + + Care Team Providers + +------+ + | Care Brush Sander Name | Role | Phone | + +------+ + PCP | Unavailable | + +------+ + Encounter Details +--------+ + + + + | Date | Type | Department | Care Team | Description | +--------+ + + + + | 12/09/ | Hospital | [facility] | Serafin Bautista | | | 2012 | Encounter | MED CTR XRAY [address] | T, MD [address] | | | | | [place] | [address] [place], [place] | | | | | [place] [address] | [address] | | | | | [phone] | | | +--------+ + + + [...] [place] | | | | | | [address] | | | | | | | [...] Performed At | + + + | [facility] Imaging Department | [facility] | | [address] | [facility] | | PROCEDURE NOTE EPIDURAL | DIAG [...] + | Manohar Martinez Conversion - 11/30/2013 4:45 PM [facility] | | Diagnostic Imaging Department | | [address] | | | | | | [...] + + | Performing | Address | City/State/Unm Hospitalcode | Phone Number | | Organization | | | | + +---------+ + + | MARAH TRNA | | | | | [facility] | | | | + +---------+ + + documented in this encounter Visit Diagnoses Not on filedocumented in this encounter"
--- OUTSIDE RECORDS SUMMARY | ~2019-09-18 | XMS | Encounter Summary ---
Demographics + + + | Address | [address] | | | [place] [address] | + + + | Home Phone [...] [place] | | | | | [address] | | + + + + + Care Team Providers + +------+ + | Care Terminal Operations Manager Name | Role | Phone | [...] | | | | | [address] | [place], [place] | | | | | [place], [place] | [address] | | | | | [address] | | | | | | [phone] | | | +--------+ + + + [...] [place] | | | | | | [address] | | | | | | | | +--------+---------+ + + + documented as of this encounter Visit Diagnoses Not on filedocumented in this encounter"
--- OUTSIDE RECORDS SUMMARY | ~2019-09-18 | XMS | Encounter Summary ---
Demographics + + + | Address | [address] | | | [place] [address] | + + + | Home Phone [...] [place] | | | | | [address] | | + + + + + Care Team Providers + +------+ + | Care Air Brake Adjuster Name | Role | Phone | + +------+ + | Basim Bolanos MD | PCP | | + +------+ + Encounter Details +--------+ + + + + | Date | Type | Department | Care Team | Description | +--------+ + + + + | 02/22/ | Abstract | [facility] [place] | [facility], | | | 2012 | | GASTROENTEROLOGY | [address] | | | | | [address] | [place], [address] | | | | | [address] [place], [place] | [place], [place] | | | | | [address] | [address] | | | | | [phone] | | | +--------+ + + + [...] [place] | | | | | | [address] | | | | | | | | +--------+---------+ + + + documented as of this encounter Visit Diagnoses Not on filedocumented in this encounter"
--- OUTSIDE RECORDS SUMMARY | ~2019-09-18 | XMS | Encounter Summary ---
Demographics + + + | Address | [address] | | | [place] [address] | + + + | Home Phone | | + + + | Preferred Language | Unknown | + + + | Marital Status | Single | + + + | Hoahaoism Affiliation | Unknown | + + + | Race | White | + + + | Ethnic Group | Not or | + + + Author + + + | Author | [facility] | + + + | Organization | [facility] | + + + | Address | Unknown | + + + | Phone | Unavailable | + + + Support + + + + + | Name | Relationship | Address | Phone | + + + + + | Kelsy Bautista | ECON | [address] | | | | | [place] | | | | | [address] | | + + + + + Care Team Providers + +------+ + | Care Shipping And Receiving Supervisor Name | Role | Phone | [...] [id number] | | | | | | [place], [place] | | | | | | [address] | | | | | | [phone] | | | +--------+ + + + [...] | + + + + + | [facility] | [address] | [place] [address] | | | PATHOLOGY | [address] [...] Re | | | | | | [address] | | | | + + + + + + + + | Specimen | + + | | + + + + + + + | Performing | Address | City/State/Zipcode | Phone Number | | Organization | | | | + + + + + | [facility] | [address] | [place] [address] | | | PATHOLOGY | [address] [...] Re | | | | | | [address] | | | | + + + + + + + + | Specimen | + + | | + + + + + + + | Performing | Address | City/State/Zipcode | Phone Number | | Organization | | | | + + + + + | [facility] | [address] | [place] [address] | | | PATHOLOGY | [address] [...] Re | | | | | | [address] | | | | + + + + + + + + | Specimen | + + | | + + + + + + + | Performing | Address | City/State/Zipcode | Phone Number | | Organization | | | | + + + + + | [facility] | [address] | [place] [address] | | | PATHOLOGY | [address] [...] Re | | | | | | [address] | | | | + + + + + + + + | Specimen | + + | | + + + + + + + | Performing | Address | City/State/Zipcode | Phone Number | | Organization | | | | + + + + + | [facility] | [address] | [place] [address] | | | PATHOLOGY | [address] | | | + + + + + documented in this encounter Visit Diagnoses Not on filedocumented in this encounter"
--- OUTSIDE RECORDS SUMMARY | ~2019-09-18 | XMS | Encounter Summary ---
Demographics + + + | Address | [address] | | | [place] [address] | + + + | Home Phone [...] [place], [place] | | | | | [address] | | + + + + + Care Team Providers + +------+ + | Care Experience Design Director Name | Role | Phone | + +------+ + PCP | Unavailable | + +------+ + Encounter Details +--------+ + + + + | Date | Type | Department | Care Team | Description | +--------+ + + + + | 12/22/ | Hospital | [facility] | | | | 1993 - | Encounter | MED CTR GENERIC PSY | | | | | | CONV DEPT [address] | | | | 12/25/ | | [place], | | | | 1993 | | [place] [address] | | | | | | [phone] | | | +--------+ + + + [...] [place] | | | | | | [address] | | | | | | | | +--------+---------+ + + + documented as of this encounter Visit Diagnoses Not on filedocumented in this encounter"
--- OUTSIDE RECORDS SUMMARY | ~2019-09-18 | XMS | Encounter Summary ---
Demographics + + + | Address | [address] | | | [place] [address] | + + + | Home Phone [...] [place], [place] | | | | | [address] | | + + + + + Care Team Providers + +------+ + | Care Commercial Loan Reviewer Name | Role | Phone | + +------+ + PCP | Unavailable | + +------+ + Encounter Details +--------+ + + + + | Date | Type | Department | Care Team | Description | +--------+ + + + + | 12/27/ | Hospital | [facility] | | | | 1997 | Encounter | MED CTR EMERGENCY | | | | | | [address] | | | | | | [place] | | | | | | [address] | | | | | | [phone] | | | +--------+ + + + [...] | | | | | [place] | | | | | | [address] | | | | | | | | +--------+---------+ + + + documented as of this encounter Visit Diagnoses Not on filedocumented in this encounter"
--- OUTSIDE RECORDS SUMMARY | ~2019-09-18 | XMS | Encounter Summary ---
Demographics + + + | Address | [address] | | | [place] [address] | + + + | Home Phone [...] [place], [place] | | | | | [address] | | + + + + + Care Team Providers + +------+ + | Care Weight Training Instructor Name | Role | Phone | + +------+ + PCP | Unavailable | + +------+ + Encounter Details +--------+ + + + + | Date | Type | Department | Care Team | Description | +--------+ + + + + | 10/29/ | Hospital | [facility] | | | | 1994 | Encounter | MED CTR LABORATORY | | | | | | [address] | | | | | | [place] | | | | | | [address] | | | | | | [phone] | | | +--------+ + + + [...] | | | | | [place] | | | | | | [address] | | | | | | | | +--------+---------+ + + + documented as of this encounter Visit Diagnoses Not on filedocumented in this encounter"
--- OUTSIDE RECORDS SUMMARY | ~2019-09-18 | XMS | Encounter Summary ---
Demographics + + + | Address | [address] | | | [place] [address] | + + + | Home Phone [...] Author | [facility] | | | [...] [place], [place] | | | | | [address] | | + + + + + Care Team Providers + +------+ + | Care Airframe Technical Officer Name | Role | Phone | + +------+ + PCP | Unavailable | + +------+ + Encounter Details +--------+ + + + + | Date | Type | Department | Care Team | Description | +--------+ + + + + | 12/22/ | Hospital | [facility] | | | | 1993 - | Encounter | MED CTR GENERIC PSY | | | | | | CONV DEPT [address] | | | | 12/25/ | | [place], | | | | 1993 | | [place] [address] | | | | | | [phone] | | | +--------+ + + + [...] [place] | | | | | | [address] | | | | | | | | +--------+---------+ + + + documented as of this encounter Visit Diagnoses Not on filedocumented in this encounter"
--- OUTSIDE RECORDS SUMMARY | ~2019-09-18 | XMS | Encounter Summary ---
Demographics + + + | Address | [address] | | | [place] [address] | + + + | Home Phone [...] [place], [place] | | | | | [address] | | + + + + + Care Team Providers + +------+ + | Care Driver/Merchandiser Name | Role | Phone | + +------+ + PCP | Unavailable | + +------+ + Encounter Details +--------+ + + + + | Date | Type | Department | Care Team | Description | +--------+ + + + + | 06/17/ | Hospital | [facility] | | | | 1991 - | Encounter | MED CTR GENERIC PSY | | | | | | CONV DEPT [address] | | | | 06/18/ | | [address], | | | | 1991 | | [place] [address] | | | | | | [phone] | | | +--------+ + + + [...] [place] | | | | | | [address] | | | | | | | | +--------+---------+ + + + documented as of this encounter Visit Diagnoses Not on filedocumented in this encounter"
--- OUTSIDE RECORDS SUMMARY | ~2019-09-18 | XMS | Encounter Summary ---
Demographics + + + | Address | [address] | | | [place] [address] | + + + | Home Phone [...] [place], [place] | | | | | [address] | | + + + + + Care Team Providers + +------+ + | Care Reception Manager Name | Role | Phone | + +------+ + PCP | Unavailable | + +------+ + Encounter Details +--------+ + + + + | Date | Type | Department | Care Team | Description | +--------+ + + + + | 05/29/ | Hospital | [facility] | | | | 1991 | Encounter | MED CTR LABORATORY | | | | | | [address] | | | | | | [place] | | | | | | [address] | | | | | | [phone] | | | +--------+ + + + [...] | | | | | [place] | | | | | | [address] | | | | | | | | +--------+---------+ + + + documented as of this encounter Visit Diagnoses Not on filedocumented in this encounter"
--- OUTSIDE RECORDS SUMMARY | ~2019-09-18 | XMS | Encounter Summary ---
Demographics + + + | Address | [address] | | | [place] [address] | + + + | Home Phone [...] [place] | | | | | [address] | | + + + + + Care Team Providers + +------+ + | Care Hand Winder Name | Role | Phone | + +------+ + | Natalee Andersen NP | PCP | | + +------+ + Encounter Details +--------+ + + + + | Date | Type | Department | Care Team | Description | +--------+ + + + + | 06/25/ | Hospital | [facility] | Frandy Teresa, | Acquired | | 2014 | Encounter | MED CTR XRAY [address] | DO [address] | spondylolisthesis | | | | [place] | [place] [address] [place], [place] | | | | | [place] [address] | [address] | | | | | [phone] | | | +--------+ + + + [...] + + + +---------+ + + | Orland-3 Fatty | Take 1,000 mg by | [...] [place] | | | | | | [address] | | | | | | | | +--------+---------+ + + + documented as of this encounter Visit Diagnoses + + | Diagnosis | + + | Acquired spondylolisthesis | + + documented in this encounter"
--- OUTSIDE RECORDS SUMMARY | ~2019-09-18 | XMS | Encounter Summary ---
Demographics + + + | Address | [address] | | | [place] [address] | + + + | Home Phone [...] [place], [place] | | | | | [address] | | + + + + + Care Team Providers + +------+ + | Care Hydropulper Name | Role | Phone | + +------+ + PCP | Unavailable | + +------+ + Encounter Details +--------+ + + + + | Date | Type | Department | Care Team | Description | +--------+ + + + + | 12/24/ | Hospital | [facility] | | | | 1998 | Encounter | MED CTR XRAY [address] | | | | | | [address] | | | | | | [place] [address] | | | | | | [phone] | | | +--------+ + + + [...] | | | | | [place] | | | | | | [address] | | | | | | | | +--------+---------+ + + + documented as of this encounter Visit Diagnoses Not on filedocumented in this encounter"
--- OUTSIDE RECORDS SUMMARY | ~2019-09-18 | XMS | Encounter Summary ---
Demographics + + + | Address | [address] | | | [place] [address] | + + + | Home Phone [...] [place], [place] | | | | | [address] | | + + + + + Care Team Providers + +------+ + | Care Business Line Manager Name | Role | Phone | [...] | SR | | | | | [phone] | | | +--------+ + + + [...] [place] | | | | | | [address] | | | | | | | | +--------+---------+ + + + documented as of this encounter Visit Diagnoses Not on filedocumented in this encounter
--- OUTSIDE RECORDS SUMMARY | ~2019-09-18 | XMS | Encounter Summary ---
Demographics + + + | Address | [address] | | | [place] [address] | + + + | Home Phone [...] [place] | | | | | [address] | | + + + + + Care Team Providers + +------+ + | Care Regional Sales Engineer Name | Role | Phone | + +------+ + | Natalee Andersen NP | PCP | | + +------+ + Encounter Details +--------+ + + + + | Date | Type | Department | Care Team | Description | +--------+ + + + + | 07/25/ | Hospital | [facility] | Frandy Teresa, | Status post lumbar | | 2014 | Encounter | MED CTR XRAY [address] | DO [address] | spinal fusion | | | | [place] | [address] [place], [place] | | | | | [place] [address] | [address] | | | | | [phone] | | | +--------+ + + + [...] + + + +---------+ + + | [place]-3 Fatty | Take 1,000 mg by | [...] [place] | | | | | | [address] | | | | | | | [...] + | MISCELLANEOUS LAB | | | [phone] | + +---------+ + + | MISCELANIOUS LAB | | | [phone] | + +---------+ + + documented in this encounter Visit Diagnoses + + | Diagnosis | + + | Status post lumbar spinal fusion Arthrodesis status | + + documented in this encounter"
--- OUTSIDE RECORDS SUMMARY | ~2019-09-18 | XMS | Encounter Summary ---
Demographics + + + | Address | [address] | | | [place] [address] | + + + | Home Phone [...] [place] | | | | | [address] | | + + + + + Care Team Providers + +------+ + | Care Fiberglass Insulation Installer Name | Role | Phone | [...] | | | | | mellitus, | [address] | [place] | | | | | controlled | Phone: | [address] | | | | | (HCC) | [phone] | Phone: | | | | | History of | Fax: | [phone] | | | | | gastric | [phone] | Fax: | | | | | restrictive | | [phone] | | | | | surgery | [...] | Required | | hypertension | [address] | | | | | Lumbar | AVE [place] | [address] | | | | | radiculopath | [place], [place] | AVE | | | | | y Type 2 | [address] | [place] | | | | | diabetes | Phone: | [address] | | | | | mellitus, | [phone] | Phone: | | | | | controlled | Fax: | [phone] | | | | | (HCC) | [phone] | Fax: | | | | | Obesity, | | [phone] | | | | | Class III, [...] | | [facility] & Katharine BUCIO in [place]. | + + + | Other | [...] + + | 03/06/ | Office | [facility] | Katharine Cardona PA-C | Hypothyroidism due | | 2014 | Visit | MEDICINE [address] | [address] [facility] | to acquired atrophy | | | | [address] [place] | [place] [address] | of thyroid (Primary | | | | [place] [address] | [phone] | Dx); Essential | | | | [phone] | | hypertension; Iron | | | [...] Stroke | | | | | | ([facility]); Environmental | | | | | | [...] | | | | | obesity) ([facility]); | | | | | | Type 2 diabetes | | | | | | mellitus, controlled | | | | | | ([facility]); Preventative | | | | | | [...] t be different from the original. Ask [facility] if they think it might be helpful [...] Cont your meds as prescribed. F/U with [facility] as scheduled Neuropathy Continue gabapentin. May consider increase if pain is not controlled. May benefit from switching from Paxil to one of the SNRIs or TCAs for analgesic effects, holly manju, she is doing so well on her current regimen it may not be worth making any changes an d find alternate ways to deal with the pain. Would be worth discussing with [facility] Psych Back Pain Will refer to water therapy (aqua fitness) at [facility] as request ed. ROGERS [...] this note might be different from t yasir original. 03/09/2015 Cindy Arndt 1955 ASSESSMENT 1. [...] Colonoscopy procedures 4. Schizoaffective disorder, bipolar type ([facility]) 5. Neuropathy Vitamin B-12 6. BACK PAIN, LUMBAR, WITH RADICULOPATHY Ambulatory referral to Physical Therapy 7. ROGERS on CPAP 8. Stroke ([facility]) 9. Environmental and seasonal allergies fluticasone (FLONASE) 50 mcg/nasal spray 10. Gastroesophageal reflux disease without esophagitis dexlansoprazole (DEXILANT) 60 mg D R capsule 11. History of gastric restrictive surgery Vitamin D, 25-Hydroxy Nutrition Services - External - AMB Referral 12. Obesity, Class III, BMI 40-49.9 (morbid obesity) ([facility]) Ambulatory referral to Physical Therapy Nutrition Services - External - AMB Referral 13. Type 2 diabetes mellitus, controlled ([facility]) Ambulatory referral to Physical Therapy Nutrition Services - External - AMB Referral metFORMIN (GLUCOPHAGE-XR) 500 mg 24 hr tablet 14. Preventative health care ANNUAL WELLNESS EXAM Medical and Family History Updated. Examination Performed. Current Providers: MD Lisandra/Must, PAC, Internal Med; Paty, Neurology; [place], [...] Cont your meds as prescribed. F/U with [facility] as scheduled Neuropathy Continue gabapentin. May consider increase if pain is not controlled. May benefit from switching from Paxil to one of the SNRIs or TCAs for analgesic effects, ho adelaver, she is doing so well on her current MH regimen it may not be worth making any changes and look for alternate ways to deal with the pain. Would be worth discussing with [facility] professional. Back Pain Will refer to water therapy (aqua fitness) at [facility] as request ed. Cont home exercise, stretching, [...] plan. The above note was dictated using [employer] voice recognition software. It may have not been proofread in entirety. Minor errors in grammar may occur. CHIEF COMPLAINT Chief Complaint Patient presents with [facility] Pres[facility] to establish care. Former patient of [facility] in [place]. Other Possible stroke January 2015. Is now seeing Dr. Newman, changed to Plavix 57-15 from Ag grenox. Diabetes NIDDM. Checks blood sugars almost daily, [...] auditory, at 36. 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 She is now very well controlled on Saphris, Depakote, and Paxi l. She is followed by [facility] in [place]. She has DM2 that is well controlled [...] has been worked up by steve rowe, Dr [place], [place]. More recently, she presented to ED with [...] Laterality: N/A; Surgeon: Frandy castellanos DO; Location: [facility] SOCIAL HISTORY History Social History [...] mg by mouth Daily. Cholecalciferol (VITAMIN D-3) 87891 units CAPS Oral Take 50,000 Units by [...] Oral Take 10 mg by mouth nightly. Frontier-3 Fatty Acids (FISH OIL CONCENTRATE) 1000 MG [...] in this encou nter Plan of Treatment +--------+---------+ + + + | Date | Type | Specialty | Care Team | Description | +--------+---------+ + + + | 10/11/ | Office | Cardiology | Desiere Peterson DO | | | 2019 | Visit | | [address] | | | | | | [place] | | | | | | [id number] | | | | | | | [...] | | | | | | controlled ([facility]) | | | | | | Obesity, Class III, | | | | | | BMI 40-49.9 (morbid | | | | | | obesity) ([facility]) | | + + +--------+ + + | Nutrition Services - | Outpatient | Routin | Iron deficiency | Ordered: 03/06/2015 | | External - AMB | Referral | e | anemia Type 2 | | | Referral | | | diabetes mellitus, | | | | | | controlled ([facility]) | | | | | | History of gastric | | | | | | restrictive surgery | | | | | | Obesity, Class III, | | | | | | BMI 40-49.9 (morbid | | | | | | obesity) ([facility]) | | + + +--------+ + + [...] 12 | 7 - 18 mg/dL | [facility] | | | | | | [facility] | | | [facility] | [facility] | | | | | | [facility] - | | | | | | LABORATORY | | + + + + + + | Creatinine | 0.66 | 0.60 - 1.30 | [facility] | | | | | mg/dL | [facility] | | | | | | [facility] | | | | | | [facility] - | | | | | | LABORATORY | | + + + + + + | eGFR if not | >60Comment: GLOMERULAR | >=60 | [facility] | | | | FILTRATION | mL/min/1.73m2 | [facility] | | | ICELANDIC | RATE,ESTIMATED | | MEDICAL | | | | mL/min/1.91u0Mqkl than | | CENTER - | | [...] [address] | [place] | [phone] | | [facility] | | [address] | | | - LABORATORY | | [...] + | Type 2 diabetes mellitus, controlled ([facility]) Type II or unspecified type diabetes | | mellitus without mention of complication, not stated as uncontrolled | + + | Preventative health care Routine general medical examination at a health care | | facility | + + documented in this encounter
--- OUTSIDE RECORDS SUMMARY | ~2019-09-18 | XMS | Encounter Summary ---
Demographics + + + | Address | [address] | | | [place] [address] | + + + | Home Phone [...] [place] | | | | | [address] | | + + + + + Care Team Providers + +------+ + | Care Manager Er Name | Role | Phone | + [...] | 03/10/ | Refill | [facility] | Katharine Cardona PA-C | Medication Refill | | 2014 | | MEDICINE [address] | [address] [place] | | | | | Street [place] | [place] [address] | | | | | [place] [address] | [phone] | | | | | [phone] | | | +--------+--------+ + + + [...] [place] | | | | | | [address] | | | | | | | | +--------+---------+ + + + documented as of this encounter Visit Diagnoses + + | Diagnosis | + + | Essential hypertension - Primary Unspecified essential hypertension | + + documented in this encounter"
--- OUTSIDE RECORDS SUMMARY | ~2019-09-18 | XMS | Clinical Summary ---
Demographics + + + | Address | [address] | | | [place] [address] | + + + | Home Phone [...] [place] | | | | | [address] | | + + + + + Care Team Providers + +------+ + | Care Melt Superintendant Name | Role | Phone | + [...] | | Activ | | (VITAMIN D-3) [id number] | mouth Once a week. | | [...] | | | | | | | ([facility]) | | | | | | | [...] | | | | e | | ([employer] VERIO FLEX | | | | | [...] | | 2018 | | | D, Grab Setter | to take monitor | | | | | | off. ) | +--------+ + + + + | 08/28/ | Telephone | Cardiology | Ashley Chávez | Other (Patient has | | 2018 | | | D, Grab Setter | questions about | | | | [...] to | | 2018 | | | D, Grab Setter | tell patient what Dr | | [...] | | 2018 | | | D, Grab Setter | anxious about urgent | | | [...] | Syncope, unspecified | | 2018 | Support | | Dora [...] (Questions | | 2018 | | | D, Grab Setter | about coverage. ) | +--------+ + + + + | 07/30/ | Telephone | Cardiology | Ashley Chávez | Other (Patient | | 2018 | | | D, Grab Setter | concerns ) | +--------+ + + + + | 07/24/ | Telephone | Cardiology | Ashley Chávez | Other (Patient is | | 2018 | | | D, Grab Setter | worried about paying | | | [...] | | 2018 | | | D, Grab Setter | called to cancel her | | | | | | appointment) | +--------+ + + + + | 06/27/ | Office | Cardiology | Yecenia Coronado, | Hypertension, | | 2018 | Visit | | MD | unspecified [...] | | | | | [place], [place] | | | | | | [address] | | | | | | | [...] | [employer] - | | 04/02/ | [id number] | | 5ccImplanted: Qty: 1 on | | Spine | MEDT | | 2019 | | | 07/02/2014 by Frandy Teresa | | Lumbar | | | | [id number] | | A, DO at [facility] | | | | | | 6-020 | | [facility] | | | | | | / | + +------+--------+ +--------+--------+--------+ | Graft Infuse Bone Kit Xxs - | | N/A: | SOFAMOR | | 01/21/ | [id number] | | [id number]: Qty: 1 on | | Spine | DANEK - DIV | | 2015 | 0 / | | 07/02/2014 by Frandy Teresa | | Lumbar | [employer] | | | /[id number] | | A, DO at [facility] | | | - SFDK | | | 06AAH | | [facility] | | | | | | | + +------+--------+ +--------+--------+--------+ | Imp Spn Spcr Cpstn 8x26mm - | | N/A: | SOFAMOR | | 01/11/ | [id number] | | [id number]: Qty: 1 on | | Spine | DANEK - DIV | | 2021 | 6 / | | 07/02/2014 by Frandy Teresa | | Lumbar | [employer] | | | /[id number] | | DO Ronak at [facility] | | | - SFDK | | | 928 | | [facility] | | | | | | | + +------+--------+ +--------+--------+--------+ | Set Scrw Ns G5 Brk Off Ti | | N/A: | SOFAMOR | | | [id number] | | 4.75 - [id number]: | | Spine | DANEK - DIV | | | 0 / / | | Qty: 4 on 07/02/2014 by | | Lumbar | [employer] | | | | | Frandy Teresa DO at [facility] | | | - SFDK | | | | | [facility] | | | | | | | [facility] | | | | | | | + +------+--------+ +--------+--------+--------+ | RodImplanted: Qty: 1 on | | N/A: | | | | [id number] | | 07/02/2014 by Frandy Teresa | | Spine | | | | 540 / | | A, DO at [facility] | | Lumbar | | | | / | | [facility] | | | | | | | + +------+--------+ +--------+--------+--------+ | RodImplanted: Qty: 1 on | | N/A: | MEDTROL - | | | [id number] | | 07/02/2014 by Frandy Teresa | | Spine | MDTR | | | 545 / | | A, DO at [facility] | | Lumbar | | | | / | | [facility] | | | | | | | + +------+--------+ +--------+--------+--------+ | Screw 7.5x50mm Sextant - | | N/A: | [employer] - | | | [id number] | | [id number]: Qty: 1 on | | Spine | MEDT | | | [id number] | | 07/02/2014 by Frandy Teresa | | Lumbar | | | | / / | | A, DO at [facility] | | | | | | | | [facility] | | | | | | | + +------+--------+ +--------+--------+--------+ | Cannulated ScrewImplanted: | | N/A: | MEDTROL - | | | [id number] | | Qty: 1 on 07/02/2014 by | | Spine | MDTR | | | [id number] | | Frandy Teresa DO at [facility] | | Lumbar | | | | / / | | [facility] | | | | | | | | [facility] | | | | | | | + +------+--------+ +--------+--------+--------+ | Cannulated ScrewImplanted: | | N/A: | [employer] - | | | [id number] | | Qty: 1 on 07/02/2014 by | | Spine | MEDT | | | [id number] | | Frandy Teresa DO at [facility] | | Lumbar | | | | / / | | [facility] | | | | | | [...] +--------+ +---------+--------+ | MEDICARE | MEDICA | [id number] | 02/22/20 | [phone] | | Medica | | | RE | | 09-Pre | 5 | | re | | | PART A | | sent | | | | | | AND B | | | | | | + +--------+ +--------+ +---------+--------+ | MEDICARE | MEDICA | [id number] | 02/22/20 | [phone] | | Medica [...] | Self | [birth year] | | [address] | | | al/Fam | | 1955 | [phone] | [address] [place], [place] | | | [place]onte | | | 8 (Home) | [address] | + +--------+ +--------+ + + | Cindy Arndt L | Person | Self | [birth year] | | [address] | | | al/Fam | | 1955 | [phone] | [address] [place], [place] | | | devonte | | | 8 (Home) | [address] | + +--------+ +--------+ + + Advance Directives + + + + + | Type | Date Recorded | Patient | Explanation | | | | Community Educator | | + + + + + | Power of | | | | | Food Service Agent | | | | + + + [...]
--- OUTSIDE RECORDS SUMMARY | ~2019-09-18 | XMS | Encounter Summary ---
Demographics + + + | Address | [address] | | | [place] [address] | + + + | Home Phone [...] [place] | | | | | [address] | | + + + + + Care Team Providers + +------+ + | Care Demand Manager Name | Role | Phone | [...] + + | 07/19/ | Office | [facility] | Desiree Peterson DO | Syncope, unspecified | | 2019 | Visit | CARDIOLOGY [place] | [address] | syncope type | | | | [address] | [place], [place] | (Primary Dx); | | | | [address] [place] | [address] | Essential | | | | [place] | | hypertension; | | | | [address] | | Irregular heartbeat | | | | [phone] | | | +--------+---------+ + + + [...] by mouth daily. Blood Glucose Monitoring Suppl (Outcome Referrals VERIO FLEX SYSTEM) w/Device KIT by Does not ap ply route. budesonide-formoterol (SYMBICORT) 160-4.5 MCG/ACT inhaler Inhale 2 puffs into the lungs 2 (two) times daily. Calcium Carbonate Antacid 1000 MG tablet Take 1,000 mg by mouth 3 (three) times daily. Cholecalciferol (VITAMIN D3) 59344 units CAPS Take by mouth once a [...] [place] | | | | | | [address] | | | | | | | [...]
--- OUTSIDE RECORDS SUMMARY | ~2019-09-18 | XMS | Encounter Summary ---
Demographics + + + | Address | [address] | | | [place] [address] | + + + | Home Phone [...] [place] | | | | | [address] | | + + + + + [...] + | 09/26/ | Refill | [facility] | Frandy Teresa, | Medication Refill | | 2013 | | NEUROSURGERY [address] | DO [address] | | | | | [address] | [address] [place], [place] | | | | | [place], [place] | [id number] | | | | | [address] | | | | | | [phone] | | | +--------+--------+ + + + [...] | | | | | [place] | | | | | | [address] | | | | | | | | +--------+---------+ + + + documented as of this encounter Visit Diagnoses Not on filedocumented in this encounter"
--- OUTSIDE RECORDS SUMMARY | ~2019-09-18 | XMS | Encounter Summary ---
Demographics + + + | Address | [address] | | | [place] [address] | + + + | Home Phone [...] [place] | | | | | [address] | | + + + + + Care Team Providers + +------+ + | Care Redrawer Name | Role | Phone | + [...] | 03/03/ | Telephone | [facility] | Baudilio Newman | Other (Results) | | 2014 | | NEUROLOGY [place]URIE | MD Pollo Need updated | | | | | [address], | address | | | | | [address] [place] | | | | | | [place] [address] | | | | | | [phone] | | | +--------+ + + + [...] [place] | | | | | | [address] | | | | | | | | +--------+---------+ + + + documented as of this encounter Visit Diagnoses Not on filedocumented in this encounter"
--- OUTSIDE RECORDS SUMMARY | ~2019-09-18 | XMS | Encounter Summary ---
Demographics + + + | Address | [address] | | | [place] [address] | + + + | Home Phone [...] [place] | | | | | [address] | | + + + + + [...] + | 07/15/ | Telephone | [facility] | Russell Alfaro PA | Other | | 2016 | | SLEEP DISORDER [address] | [address] | | | | | [address] [place] | [place] [facility], [place] | | | | | [place] [address] | [address] | | | | | [phone] | | | +--------+ + + + [...] [place] | | | | | | [address] | | | | | | | | +--------+---------+ + + + documented as of this encounter Visit Diagnoses Not on filedocumented in this encounter"
--- OUTSIDE RECORDS SUMMARY | ~2019-09-18 | XMS | Encounter Summary ---
Demographics + + + | Address | [address] | | | [place] [address] | + + + | Home Phone [...] [place] | | | | | [address] | | + + + + + Care Team Providers + +------+ + | Care Mason Helper Name | Role | Phone | [...] [address] | [address] [place], [place] | fusion | | | | [place], [place] | [address] | | | | | [address] | | | | | | [phone] | | | +--------+ + + + [...] [place] | | | | | | [address] | | | | | | | | +--------+---------+ + + + documented as of this encounter Visit Diagnoses + + | Diagnosis | + + | Lumbago - Primary | + + | S/P lumbar fusion Arthrodesis status | + + documented in this encounter"
--- OUTSIDE RECORDS SUMMARY | ~2019-09-18 | XMS | Encounter Summary ---
Demographics + + + | Address | [address] | | | [place] [address] | + + + | Home Phone [...] + + + + + | Araceli Silbey | ECON | [place] | | | | | [address] | | + + + + + Care Team Providers + +------+ + | Care Shot Bagger Name | Role | Phone | + [...] + + | 09/10/ | Documentati | [facility] | Katharine Moncada, | Other (urgent | | 2019 | on | CARDIOLOGY [place] | Technologist | report) | | | | [address] | | | | | | [place] | | | | | | [address] | | | | | | [phone] | | | +--------+ + + + [...] [place] | | | | | | [address] | | | | | | | | +--------+---------+ + + + documented as of this encounter Visit Diagnoses Not on filedocumented in this encounter"
--- OUTSIDE RECORDS SUMMARY | ~2019-09-18 | XMS | Encounter Summary ---
Demographics + + + | Address | [address] | | | [place] [address] | + + + | Home Phone [...] [place] | | | | | [address] | | + + + + + Care Team Providers + +------+ + | Care Integrated Circuit Fabricator Name | Role | Phone | [...] + + | 08/09/ | Clinical | [facility] | Desiree Peterson DO | Syncope, unspecified | | 2019 | Support | CARDIOLOGY [place] | [address] | syncope type | | | | [address] | [place], [place] | | | | | [place] [address] | [address] | | | | | [place] | | | | | | [address] | Dora De La Torre | | | | | [phone] | [address]OLINE Mendez [address] | | | | | | [address] | | | | | | [place] [address] | | | | | | [phone] | | | | | | | [...] [place] | | | | | | [address] | | | | | | | | +--------+---------+ + + + documented as of this encounter Visit Diagnoses + + | Diagnosis | + + | Syncope, unspecified syncope type | + + documented in this encounter"
--- OUTSIDE RECORDS SUMMARY | ~2019-09-18 | XMS | Encounter Summary ---
Demographics + + + | Address | [address] | | | [place] [address] | + + + | Home Phone [...] [place] | | | | | [address] | | + + + + + Care Team Providers + +------+ + | Care Pharmacist Apprentice Name | Role | Phone | [...] + + | 09/10/ | Documentati | [facility] | Katharine Moncada, | Other (urgent | | 2019 | on | CARDIOLOGY [place] | Technologist | report) | | | | [address] | | | | | | [place] | | | | | | [address] | | | | | | [phone] | | | +--------+ + + + [...] [place] | | | | | | [address] | | | | | | | | +--------+---------+ + + + documented as of this encounter Visit Diagnoses Not on filedocumented in this encounter"
--- OUTSIDE RECORDS SUMMARY | ~2019-09-18 | XMS | Clinical Summary ---
Demographics + + + | Address | [address] | | | [place] [address] | + + + | Home Phone [...] [place] | | | | | [address] | | + + + + + Care Team Providers + +------+ + | Care Information Technology Instructor Name | Role | Phone | [...] | | Activ | | (VITAMIN D-3) [id number] | mouth Once a week. | | [...] [place]) | | | | | | | [...] | | | | e | | ([employer] VERIO FLEX | | | | | [...] | | 2018 | | | D, Medical Device Sales | to take monitor | | | | | | off. ) | +--------+ + + + + | 08/28/ | Telephone | Cardiology | Ashley Chávez | Other (Patient has | | 2018 | | | D, Medical Device Sales | questions about | | | | [...] | | 2018 | | | D, Medical Device Sales | tell patient what Dr | | [...] | | 2018 | | | D, Medical Device Sales | anxious about urgent | | | [...] | | 2018 | | | D, Medical Device Sales | about coverage. ) | +--------+ + + + + | 07/30/ | Telephone | Cardiology | Ashley Chávez | Other (Patient | | 2018 | | | D, Medical Device Sales | concerns ) | +--------+ + + + + | 07/24/ | Telephone | Cardiology | Ashley Chávez | Other (Patient is | | 2018 | | | D, Medical Device Sales | worried about paying | | | [...] | | 2018 | | | D, Medical Device Sales | called to cancel her | | [...] | | | | | [place], [place] | | | | | | [address] | | | | | | | [...] | [employer] - | | 04/02/ | [id number] | | 5ccImplanted: Qty: 1 on | | Spine | MEDT | | 2019 | | | 07/02/2014 by Frandy Teresa | | Lumbar | | | | /[id number] | | A, DO at [facility] | | | | | | 6-020 | | [facility] | | | | | | / | + +------+--------+ +--------+--------+--------+ | Graft Infuse Bone Kit Xxs - | | N/A: | SOFAMOR | | 01/21/ | [id number] | | [id number]: Qty: 1 on | | Spine | DANEK - DIV | | 2015 | 0 / | | 07/02/2014 by Frandy Teresa | | Lumbar | [employer] | | | /[id number] | | A, DO at [facility] | | | - SFDK | | | 06AAH | | [facility] | | | | | | | + +------+--------+ +--------+--------+--------+ | Imp Spn Spcr Cpstn 8x26mm - | | N/A: | SOFAMOR | | 01/11/ | [id number] | | [id number]: Qty: 1 on | | Spine | DANEK - DIV | | 2021 | 6 / | | 07/02/2014 by Frandy Teresa | | Lumbar | [employer] | | | /[id number] | | DO Ronak at [facility] | | | - SFDK | | | 928 | | [facility] | | | | | | | + +------+--------+ +--------+--------+--------+ | Set Scrw Ns G5 Brk Off Ti | | N/A: | SOFAMOR | | | [id number] | | 4.75 - [id number]: | | Spine | DANEK - DIV | | | 0 / / | | Qty: 4 on 07/02/2014 by | | Lumbar | [employer] | | | | | Frandy Teresa DO at [facility] | | | - SFDK | | | | | [facility] | | | | | [facility] | | | | | | | + +------+--------+ +--------+--------+--------+ | RodImplanted: Qty: 1 on | | N/A: | | | | [id number] | | 07/02/2014 by Frandy Teresa | | Spine | | | | 540 / | | A, DO at [facility] | | Lumbar | | | | / | | [facility] | | | | | | | + +------+--------+ +--------+--------+--------+ | RodImplanted: Qty: 1 on | | N/A: | MEDTROL - | | | [id number] | | 07/02/2014 by Frandy Teresa | | Spine | MDTR | | | 545 / | | A, DO at [facility] | | Lumbar | | | | / | | [facility] | | | | | | | + +------+--------+ +--------+--------+--------+ | Screw 7.5x50mm Sextant - | | N/A: | [employer] - | | | [id number] | | [id number]: Qty: 1 on | | Spine | MEDT | | | [id number] | | 07/02/2014 by Frandy Teresa | | Lumbar | | | | / / | | A, DO at [facility] | | | | | | | | [facility] | | | | | | | + +------+--------+ +--------+--------+--------+ | Cannulated ScrewImplanted: | | N/A: | MEDTROL - | | | [id number] | | Qty: 1 on 07/02/2014 by | | Spine | MDTR | | | [id number] | | Frandy Teresa DO at [facility] | | Lumbar | | | | / / | | [facility] | | | | | | [facility] | | | | | | | + +------+--------+ +--------+--------+--------+ | Cannulated ScrewImplanted: | | N/A: | [employer] - | | | [id number] | | Qty: 1 on 07/02/2014 by | | Spine | MEDT | | | [id number] | | Frandy Teresa DO at [facility] | | Lumbar | | | | / / | | [facility] | | | | | | | [...] +--------+ +---------+--------+ | MEDICARE | MEDICA | [id number] | 02/22/20 | [phone] | | Medica | | | RE | | 09-Pre | 5 | | re | | | PART A | | sent | | | | | | AND B | | | | | | + +--------+ +--------+ +---------+--------+ | MEDICARE | MEDICA | [id number] | 02/22/20 | [phone] | | Medica [...] | Self | [birth year] | | [address] | | | al/Fam | | 1955 | [phone] | [address] [place], [place] | | | [place] | | | 8 (Home) | [address] | + +--------+ +--------+ + + | Cindy Arndt L | Person | Self | [birth year] | | [address] | | | al/Fam | | 1955 | [phone] | [address] [place], [place] | | | [place]onte | | | 8 (Home) | [address] | + +--------+ +--------+ + + Advance Directives + + + + + | Type | Date Recorded | Patient | Explanation | | | | Third Mate | | + + + + + | Power of | | | | | Aviation Safety Officer | | | | + + + [...]
--- OUTSIDE RECORDS SUMMARY | ~2019-09-18 | XMS | Encounter Summary ---
Demographics + + + | Address | [address] | | | [place] [address] | + + + | Home Phone [...] [place] | | | | | [address] | | + + + + + Care Team Providers + +------+ + | Care Fish Hatchery Worker Name | Role | Phone | [...] | | [address] | [place], [place] | | | | | [place], [place] | [address] | | | | | [address] | | | | | | [phone] | | | +--------+ + + + [...] | | | | | [place] | | | | | | [address] | | | | | | | [...] 0.83 m/s | | | MV Dec [place]: 2.85 m/s2 MV DecT: 282.89 ms MV E Teodoro: 0.80 | | | m/s MV E/A Ratio: 0.96 E/E' Sept: 12.59 E' Lat: 0.08 m/s | | | E' Sept: 0.06 m/s RAP: 10 mmHg RV S': 0.11 m/s RVSP: | | | 27.96 mmHg TR maxP.96 mmHg TR Vmax: 2.11 m/s | | | Mill Washer: Authenticated by: Desiree Peterson MD Report Date/Time: | | | -- 35_[id number]_2:31:1 | | + + + + + [...] (A-L): 19.60 | | ml/m2LAAs A2C: 15.44 [id number] A-L A2C: 43.84 mlLAESV MOD A2C: 42.12 mlLALs A2C: | | 4.61 cmLAAs A4C: 14.18 [id number] A-L A4C: 38.73 mlLAESV MOD A4C: 37.04 mlLALs A4C: | | 4.41 cmRAAs: 12.15 dv5MFOGL A-L: 28.54 mlRAESV MOD: 28.66 mlRALs: 4.39 | | cmTAPSE: 2.42 cmAV Env.Ti: 293.94 msAV maxP.18 mmHgAV meanP.09 mmHgAV | | Vmax: 1.88 m/Eddie Vmean: 1.25 m/Eddie VTI: 36.84 cmAVA Vmax: 2.06 cm2AVA (VTI): | | 2.24 ca8UIQR Vmax: 0.00 cm2/m2AVAI (VTI): 0.00 cm2/m2LVOT Env.Ti: 299.59 msLVOT | | maxP.52 mmHgLVOT meanP.65 mmHgLVSI Dopp: 38.55 ml/m2LVSV Dopp: 82.89 | | mlLVOT Vmax: 1.27 m/sLVOT Vmean: 0.91 m/sLVOT VTI: 27.27 cmMV A Teodoro: 0.83 m/sMV | | Dec [place]: 2.85 m/s2MV DecT: 282.89 msMV E [place]: 0.80 m/sMV E/A Ratio: 0.96E/E' | | Sept: 12.59E' Lat: 0.08 m/sE' Sept: 0.06 m/sRAP: 10 mmHgRV S': 0.11 m/sRVSP: | | 27.96 mmHgTR maxP.96 mmHgTR Vmax: 2.11 m/s Mill Washer:Authenticated by: | | Desiree Peterson MDReport Date/Time: -- [id number]_2:31:1 IMPRESSION: 1. Overall left | | ventricular [...] A Te[place]oro: 0.83 m/s | |MV Dec [place]: 2.85 m/s2 | |MV DecT: 282.89 ms | |MV E [place]: 0.80 m/s | |MV E/A Ratio: 0.96 | |E/E' Sept: 12.59 | |E' Lat: 0.08 m/s | |E' Sept: 0.06 m/s | |RAP: 10 mmHg | |RV S': 0.11 m/s | |RVSP: 27.96 mmHg | |TR maxP.96 mmHg | |TR Vmax: 2.11 m/s | | | |Mill Washer: | |Authenticated by: Desiree Peterson MD | |Report Date/Time: -- [id number]_4:31:1 | | | |IMPRESSION: | |1. Overall [...]
--- OUTSIDE RECORDS SUMMARY | ~2019-09-18 | XMS | Encounter Summary ---
Demographics + + + | Address | [address] | | | [place] [address] | + + + | Home Phone [...] [place] | | | | | [address] | | + + + + + Care Team Providers + +------+ + | Care Chimney Construction Supervisor Name | Role | Phone | [...] + + | 07/01/ | Telephone | [facility] | Frandy Teresa, | Other (Surgery ) | | 2013 | | NEUROSURGERY [address] | DO [address] | | | | | [address] [address] | [place] [address] [place], [place] | | | | | [place], [place] | [address] | | | | | [address] | | | | | | [phone] | | | +--------+ + + + [...] [address] | | | | | | [place] | | | | | | [address] | | | | | | | | +--------+---------+ + + + documented as of this encounter Visit Diagnoses Not on filedocumented in this encounter"
--- OUTSIDE RECORDS SUMMARY | ~2019-09-18 | XMS | Encounter Summary ---
Demographics + + + | Address | [address] | | | [place] [address] | + + + | Home Phone [...] [place], [place] | | | | | [address] | | + + + + + Care Team Providers + +------+ + | Care Carbon Coater Machine Operator Name | Role | Phone [...] | | | | 1996 | | [place] [address] | | | | | | [phone] | | | +--------+ + + + [...] [place] | | | | | | [address] | | | | | | | | +--------+---------+ + + + documented as of this encounter Visit Diagnoses Not on filedocumented in this encounter"
--- OUTSIDE RECORDS SUMMARY | ~2019-09-18 | XMS | Encounter Summary ---
Demographics + + + | Address | [address] | | | [place] [address] | + + + | Home Phone [...] [place], [place] | | | | | [address] | | + + + + + Care Team Providers + +------+ + | Care Porter Baggage Name | Role | Phone | + +------+ + PCP | Unavailable | + +------+ + Encounter Details +--------+ + + + + | Date | Type | Department | Care Team | Description | +--------+ + + + + | 05/23/ | Hospital | [facility] | Dale, Heath E A, | | | 2012 | Encounter | MED CTR XRAY [address] | MD [address] | | | | | [place] | [place] | | | | | [place] [address] | [address] | | | | | [phone] | | | +--------+ + + + [...] + + + +---------+ + + | Minturn-3 Fatty | Take 1,000 mg by | [...] [place] | | | | | | [address] | | | | | | | [...] | [facility] | [facility] | | [address] | [facility] | | LUMBAR SPINE MR WITHOUT CONTRAST, [...] Transcribed Date/Time: | | | 05/23/2012 16:55 Ediscovery Project Manager: <Electronically Signed | | | by Adriano Anne MD> 05/23/12 [id number] | | + + + + + | Procedure Note | + + | Manohar Martinez Conversion - 11/30/2013 5:47 PM [facility] | | Diagnostic Imaging Department [address] [facility] [place] | | LUMBAR SPINE MR WITHOUT CONTRAST, [...] 16:37 | |Transcribed Date/Time: 05/23/2012 16:55 | |Ediscovery Project Manager: | |<Electronically Signed by Adriano Anne MD> [...]
--- OUTSIDE RECORDS SUMMARY | ~2019-09-18 | XMS | Encounter Summary ---
Demographics + + + | Address | [address] | | | [place] [address] | + + + | Home Phone [...] [place] | | | | | [address] | | + + + + + Care Team Providers + +------+ + | Care Block Piler Name | Role | Phone | + [...] + + | 08/09/ | Clinical | [facility] | Desiree Peterson DO | Syncope, unspecified | | 2019 | Support | CARDIOLOGY [place] | [address] | syncope type | | | | [address] | [place], [place] | | | | | [place] [address] | [address] | | | | | [place] | | | | | | [address] | Dora [place] | | | | | [phone] | [address] | | | | | | [address] | | | | | | [place] [address] | | | | | | [phone] | | | | | | | [...] [place] | | | | | | [address] | | | | | | | | +--------+---------+ + + + documented as of this encounter Visit Diagnoses + + | Diagnosis | + + | Syncope, unspecified syncope type | + + documented in this encounter"
--- OUTSIDE RECORDS SUMMARY | ~2019-09-18 | XMS | Encounter Summary ---
Demographics + + + | Address | [address] | | | [place] [address] | + + + | Home Phone [...] [place] | | | | | [address] | | + + + + + Care Team Providers + +------+ + | Care Transitions Rn Care Coordinator Name | Role | Phone | [...] + + | 08/21/ | Documentati | [facility] | Katharine Moncada, | Other (urgent | | 2019 | on | CARDIOLOGY [place] | Technologist | report) | | | | [address] | | | | | | [place] | | | | | | [address] | | | | | | [phone] | | | +--------+ + + + [...] [place] | | | | | | [address] | | | | | | | | +--------+---------+ + + + documented as of this encounter Visit Diagnoses Not on filedocumented in this encounter"
--- OUTSIDE RECORDS SUMMARY | ~2019-09-18 | XMS | Encounter Summary ---
Demographics + + + | Address | [address] | | | [place] [address] | + + + | Home Phone [...] + + | Author | [facility] | | | and [place] | + + + | Organization | [facility] | | | and [place] | + + + | Address | Unknown | + + + | Phone | Unavailable | + + + Support + + + + + | Name | Relationship | Address | Phone | + + + + + | Araceli Sibley | ECON | [place] | | | | | [address] | | + + + + + Care Team Providers + +------+ + | Care Instructor Substitute Cosmetology Name | Role | Phone | + [...] + + | 09/10/ | Documentati | [facility] | Katharine Moncada, | Other (urgent | | 2019 | on | CARDIOLOGY [place] | Technologist | report) | | | | [address] | | | | | | [place] | | | | | | [address] | | | | | | [phone] | | | +--------+ + + + [...] [place] | | | | | | [address] | | | | | | | | +--------+---------+ + + + documented as of this encounter Visit Diagnoses Not on filedocumented in this encounter"
--- OUTSIDE RECORDS SUMMARY | ~2019-09-18 | XMS | Encounter Summary ---
Demographics + + + | Address | [address] | | | [place] [address] | + + + | Home Phone [...] [place], [place] | | | | | [address] | | + + + + + Care Team Providers + +------+ + | Care Safety Assistant Name | Role | Phone | [...] | SR | | | | | [phone] | | | +--------+ + + + [...] [place] | | | | | | [address] | | | | | | | | +--------+---------+ + + + documented as of this encounter Visit Diagnoses Not on filedocumented in this encounter
--- OUTSIDE RECORDS SUMMARY | ~2019-09-18 | XMS | Encounter Summary ---
Demographics + + + | Address | [address] | | | [place] [address] | + + + | Home Phone [...] [place] | | | | | [address] | | + + + + + Care Team Providers + +------+ + | Care Seamless Tube Mill Operator Name | Role | Phone | + +------+ + | Basim Bolanos MD | PCP | | + +------+ + Encounter Details +--------+ + + + + | Date | Type | Department | Care Team | Description | +--------+ + + + + | 01/24/ | Abstract | [facility] [place] | [facility], | | | 2012 | | GASTROENTEROLOGY | FORTUNATO Thomas [address] | | | | | [address] | [place], [address] | | | | | [address] [place], [place] | [place], [place] | | | | | [address] | [address] | | | | | [phone] | | | +--------+ + + + [...] [place] | | | | | | [address] | | | | | | | | +--------+---------+ + + + documented as of this encounter Visit Diagnoses Not on filedocumented in this encounter"
--- OUTSIDE RECORDS SUMMARY | ~2019-09-18 | XMS | Encounter Summary ---
Demographics + + + | Address | [address] | | | [place] [address] | + + + | Home Phone [...] [place] | | | | | [address] | | + + + + + Care Team Providers + +------+ + | Care Transportation Worker Name | Role | Phone | [...] | | | spondylolist | | [address] | | | | | hesis | | [place], | | | | | Spinal | | [place] [address] | | | | | stenosis, | | Phone: | | | | | lumbar | | [phone] | | | | | region, | | Fax: | | | | | without | | [phone] | | | | | neurogenic | [...] + + | 07/02/ | Surgery | [facility] | Frandy Teresa, | MIS L5-S1 | | 2013 | | MED CTR OR INTRA OP | DO [address] | TRANSFORAMINAL | | | | [address] | [address] [place], [place] | LUMBAR INTERBODY | | | | [place] | [id number] | FUSION | | | | [address] | | | | | | [phone] | | | +--------+---------+ + + + [...] might be different fro m the original. [facility] DISCHARGE SUMMARY PATIENT NAME: Cindy [...] Stable for discharge to SNF. DISPOSITION[facility] DISCHARGE MEDICATIONS Medications prior to admission [...] Take 15 mg by mouth nightl y. [place]-3 Fatty Acids (FISH OIL CONCENTRATE) 1000 MG [...] + + + +---------+ + + | Franklin-3 Fatty | Take 1,000 mg by | [...] prophylaxis -DC plan: SNF versus home with [facility] any time. arai T Neff RN - 07/04/2014 6:56 PM PDTFoley cath dc'd and MARI drain dc'd no problems. Chris Lynn PA-C - 07/04/2014 7:43 AM PDT [facility] PROGRESS NOTE Pt. Name/Age/: Cindy Arndt 58 y.o. 1955 Med. Record Number: [id number] Date of admission: 07/02/2014 Subjective: The patient [...] home medications. D/C plan: Home tomorrow with [facility]. D/c mari drain and riley cath today. D/c exterminator. Patient Active Problem List Diagnosis LUMBAR DISC [...] signed by: Chris Nicole, 07/04/2014 7:45 [facility] Chris Lynn PA-C - 07/03/2014 7:13 AM PDT . [facility] PROGRESS NOTE Pt. Name/Age/: Cindy Arndt 58 y.o. 1955 Med. Record Number: [id number] Date of admission: 07/02/2014 Subjective: The patient [...] Electronically signed by: Chris Nicole, 07/03/2014 7:13 [facility] Ton Johnston, KRIS - 07/03/2014 6:50 AM [...] | | | | | [place] | | | | | | [address] | | | | | | | [...] SELMA | | | | | | [place] | | | - | | | [...] + | [facility] | [address] | [place], [place] | [phone] | | [facility] | | [address] | | | - LABORATORY | | | | + + + + + | [facility] | [address] | [place], [place] | | | [facility] | | [address] | | | - LABORATORY | | [...] + | [facility] | [address] | [place] | [phone] | | [facility] | | [address] | | | - LABORATORY | | | | + + + + + | [facility] | [address] | [place] | | | [facility] | | [address] | | | - LABORATORY | | [...] + | [facility] | [address] | [place], [place] | [phone] | | [facility] | | [address] | | | - LABORATORY | | | | + + + + + | [facility] | [address] | [place], [place] | | | [facility] | | [address] | | | - LABORATORY | | [...] + | [facility] | [address] | [place] | [phone] | | [facility] | | [address] | | | - LABORATORY | | | | + + + + + | [facility] | [address] | [place], [place] | | | [facility] | | [address] | | | - LABORATORY | | [...] + | [facility] | [address] | [place], [place] | [phone] | | [facility] | | [address] | | | - LABORATORY | | | | + + + + + | [facility] | [address] | [place] | | | [facility] | | [address] | | | - LABORATORY | | [...] + | [facility] | [address] | [place] | [phone] | | [facility] | | [address] | | | - LABORATORY | | | | + + + + + | [facility] | [address] | [place] | | | [facility] | | [address] | | | - LABORATORY | | [...] + + | Performing | Address | City/State[facility] | Phone Number | | Organization | | | | + + + + + | [facility] | [address] | [place] | [phone] | | [facility] | | [address] | | | - LABORATORY | | | | + + + + + | [facility] | [address] | [place] | | | [facility] | | [address] | | | - LABORATORY | | [...] + | [facility] | [address] | [place] | [phone] | | [facility] | | [address] | | | - LABORATORY | | | | + + + + + | [facility] | [address] | [place] | | | [facility] | | [address] | | | - LABORATORY | | [...] [address] | [place] | [phone] | | [facility] | | [address] | | | - LABORATORY | | | | + + + + + | [facility] | [address] | [place], [place] | | | [facility] | | [address] | | | - LABORATORY | | [...] | of hardware for posterior fusion from [id number] S1 with interbody hardware at L5-S1. The [...] + | MISCELLANEOUS LAB | | | [phone] | + +---------+ + + | MISCELANIOUS LAB | | | [phone] | + +---------+ + + POC Glucose [...] + | [facility] | [address] | [place] | [phone] | | [facility] | | [address] | | | - LABORATORY | | | | + + + + + | [facility] | [address] | [place] | | | [facility] | | [address] | | | - LABORATORY | | [...] + | [facility] | [address] | [place], [place] | [phone] | | [facility] | | [address] | | | - LABORATORY | | | | + + + + + | [facility] | [address] | [place] | | | [facility] | | [address] | | | - LABORATORY | | [...] | | | POC | | | [facility] | | | | | | [...] + | [facility] | [address] | [place] | [phone] | | [facility] | | [address] | | | - LABORATORY | | | | + + + + + | [facility] | [address] | [place] | | | [facility] | | [address] | | | - LABORATORY | | [...] + | [facility] | [address] | [place] | [phone] | | [facility] | | [address] | | | - LABORATORY | | | | + + + + + | [facility] | [address] | [place] | | | [facility] | | [address] | | | - LABORATORY | | [...] + | [facility] | [address] | [place], [place] | [phone] | | [facility] | | [address] | | | - LABORATORY | | | | + + + + + | [facility] | [address] | [place], [place] | | | [facility] | | [address] | | | - LABORATORY | | [...] ST. | [address] | [place] | | | [facility] | | [address] | | | - BLOOD BANK | [...] mLs | | Surgical | | 1:200,000 0.25-1:407763 % | | 14 12:42 | | [...]
--- OUTSIDE RECORDS SUMMARY | ~2019-09-18 | XMS | Encounter Summary ---
Demographics + + + | Address | [address] | | | [place] [address] | + + + | Home Phone [...] [place] | | | | | [address] | | + + + + + Care Team Providers + +------+ + | Care Flattening Press Operator Name | Role | Phone | [...] + + | 08/20/ | Documentati | [facility] | Katharine Moncada, | Other (urgent | | 2019 | on | CARDIOLOGY [place] | Technologist | report) | | | | [address] | | | | | | [place] | | | | | | [address] | | | | | | [phone] | | | +--------+ + + + [...] [place] | | | | | | [address] | | | | | | | | +--------+---------+ + + + documented as of this encounter Visit Diagnoses Not on filedocumented in this encounter"
--- OUTSIDE RECORDS SUMMARY | ~2019-09-18 | XMS | Encounter Summary ---
Demographics + + + | Address | [address] | | | [place] [address] | + + + | Home Phone [...] [place] | | | | | [address] | | + + + + + Care Team Providers + +------+ + | Care Foundation Drill Operator Helper Name | Role | Phone | [...] + | 07/29/ | Telephone | [facility] | Frandy Teresa, | Other (multiple | | 2013 | | NEUROSURGERY [address] | DO [address] | questions) | | | | [address] | [address] [place], [place] | | | | | [place], [place] | [address] | | | | | [address] | | | | | | [phone] | | | +--------+ + + + [...] | | | | | [place] | | | | | | [address] | | | | | | | | +--------+---------+ + + + documented as of this encounter Visit Diagnoses Not on filedocumented in this encounter"
--- OUTSIDE RECORDS SUMMARY | ~2019-09-18 | XMS | Encounter Summary ---
Demographics + + + | Address | [address] | | | [place] [address] | + + + | Home Phone [...] [place] | | | | | [address] | | + + + + + Care Team Providers + +------+ + | Care Metal Furniture Polisher Name | Role | Phone | [...] | 2019 | | CARDIOLOGY [place] Abad, Distributing Clerk | worried about paying | | | | [address] | | for monitor. ) | | | | [place] | | | | | | [address] | | | | | | [phone] | | | +--------+ + + + [...] [place] | | | | | | [address] | | | | | | | | +--------+---------+ + + + documented as of this encounter Visit Diagnoses Not on filedocumented in this encounter"
--- OUTSIDE RECORDS SUMMARY | ~2019-09-18 | XMS | Encounter Summary ---
Demographics + + + | Address | [address] | | | [place] [address] | + + + | Home Phone [...] [place] | | | | | [address] | | + + + + + Care Team Providers + +------+ + | Care Geological Specialist Name | Role | Phone | [...] | 03/10/ | Refill | [facility] | Katharine Cardona PA-C | Medication Refill | | 2014 | | MEDICINE [address] | [address] [place] | | | | | Street [place] | [place] [address] | | | | | [place] [address] | [phone] | | | | | [phone] | | | +--------+--------+ + + + [...] [place] | | | | | | [address] | | | | | | | | +--------+---------+ + + + documented as of this encounter Visit Diagnoses + + | Diagnosis | + + | Essential hypertension - Primary Unspecified essential hypertension | + + documented in this encounter"
--- OUTSIDE RECORDS SUMMARY | ~2019-09-18 | XMS | Encounter Summary ---
Demographics + + + | Address | [address] | | | [place] [address] | + + + | Home Phone [...] [place] | | | | | [address] | | + + + + + Care Team Providers + +------+ + | Care Air Intelligence Specialist Name | Role | Phone | [...] + + | 03/04/ | Telephone | [facility] | Baudilio Newman | Other (Plavix) | | 2014 | | NEUROLOGY LAURIE | MD Pollo Need updated | | | | | [address] [facility], | address | | | | | [address] [place] | | | | | | [place] [address] | | | | | | [phone] | | | +--------+ + + + [...] [place] | | | | | | [address] | | | | | | | | +--------+---------+ + + + documented as of this encounter Visit Diagnoses Not on filedocumented in this encounter"
--- OUTSIDE RECORDS SUMMARY | ~2019-09-18 | XMS | Encounter Summary ---
Demographics + + + | Address | [address] | | | [place] [address] | + + + | Home Phone [...] [place] | | | | | [address] | | + + + + + Care Team Providers + +------+ + | Care Sanitation Tank Washer Name | Role | Phone | + [...] | | | | | Procedures | RN [address] | [address] | | | | | [place] OFFICE | | [place] [address] | | | | | CONSULTATION | [address] | [place] | | | | | NEW/ESTAB | [facility], | [address] Phone: | | | | | PATIENT 60 | [place] [address] | [phone] | | | | | MIN | Phone: | Fax: | | | | | | [phone] | [phone] | | | | | | Fax: | | | | | | | [phone] | | +--------+--------+ + + + + Encounter Details +--------+---------+ + + + | Date | Type | Department | Care Team | Description | +--------+---------+ + + + | 05/02/ | Office | [facility] | Frandy Teresa, | Spondylolisthesis of | | 2013 | Visit | NEUROSURGERY [address] | DO [address] | lumbar region | | | | [address] | [address] [place], [place] | (Primary Dx); Lumbar | | | | [place], [place] | [id number] | stenosis; Lumbar | | | | [address] | | radicular pain; | | | | [phone] | | Lumbago | +--------+---------+ + + [...] m the original. Frandy Teresa DO [address] [facility] [place] [address] FAX: NEUROSURGERY HISTORY AND PHYSICAL EXAMINATION CHIEF [...] Take 15 mg by mouth nightl y. [place]-3 Fatty Acids (FISH OIL CONCENTRATE) 1000 MG [...] has no apparent deficits with short or long term care social worker memory. CRANIAL NERVES: II: Acuity is intact. [...] Intrinsics 5 5 Ulnar Intrinsics 5 5 Cash Reconciliation Specialist Strength 5 5 Hip Flexion 5 [...] | | | | | [place] | | | | | | [address] | | | | | | | [...]
--- OUTSIDE RECORDS SUMMARY | ~2019-09-18 | XMS | Encounter Summary ---
Demographics + + + | Address | [address] | | | [place] [address] | + + + | Home Phone [...] [place] | | | | | [address] | | + + + + + Care Team Providers + +------+ + | Care Blender Conveyor Operator Name | Role | Phone | + +------+ + PCP | Unavailable | + +------+ + Encounter Details +--------+ + + + + | Date | Type | Department | Care Team | Description | +--------+ + + + + | 04/27/ | Hospital | [facility] | Sage Garza MD | | | 2001 | Encounter | HOSPITAL EMERGENCY | | | | | | CENTER [address] | | [address] [place], [place] | | | | | | [address] | | | | | | [phone] | | | +--------+ + + + [...] [place] | | | | | | [address] | | | | | | | | +--------+---------+ + + + documented as of this encounter Visit Diagnoses Not on filedocumented in this encounter"
--- OUTSIDE RECORDS SUMMARY | ~2019-09-18 | XMS | Encounter Summary ---
Demographics + + + | Address | [address] | | | [place] [address] | + + + | Home Phone [...] + | Araceli Sibley | ECON | [place] | | | | | [address] | | + + + + + Care Team Providers + +------+ + | Care Health Program Specialist Name | Role | Phone [...] | | | | | Procedures | REWIND OPERATOR [address] | [address] | | | | | [place] OFFICE | | [place] [address] | | | | | CONSULTATION | [address] | [place] | | | | | NEW/ESTAB | [facility], | [address] Phone: | | | | | PATIENT 60 | [place] [address] | [phone] | | | | | MIN | Phone: | Fax: | | | | | | [phone] | [phone] | | | | | | Fax: | | | | | | | [phone] | | +--------+--------+ + + + + Encounter Details +--------+---------+ + + + | Date | Type | Department | Care Team | Description | +--------+---------+ + + + | 05/02/ | Office | [facility] | Frandy Teresa, | Spondylolisthesis of | | 2013 | Visit | NEUROSURGERY [address] | DO [address] | lumbar region | | | | [address] | [address] [place], [place] | (Primary Dx); Lumbar | | | | [place], [place] | [phone] | stenosis; Lumbar | | | | [address] | | radicular pain; | | | | [phone] | | Lumbago | +--------+---------+ + + [...] for surgery when scheduled.Electronically signed by Frandy Tereas DO at 11:32 AM PDT documented in this encounter Progress Notes Frandy Teresa DO - 05/02/2014 11:33 AM PDTFormatting of this note might be different fro m the original. Frandy Teresa DO [address] [facility] [place] [address] FAX: NEUROSURGERY HISTORY AND PHYSICAL EXAMINATION CHIEF [...] Take 15 mg by mouth nightl y. [place]-3 Fatty Acids (FISH OIL CONCENTRATE) 1000 MG [...] Intrinsics 5 5 Ulnar Intrinsics 5 5 Presidential Support Specialist Strength 5 5 Hip Flexion 5 [...] | | | | | [place] | | | | | | [address] | | | | | | | [...]
--- OUTSIDE RECORDS SUMMARY | ~2019-09-18 | XMS | Encounter Summary ---
Demographics + + + | Address | [address] | | | [place] [address] | + + + | Home Phone [...] [place] | | | | | [address] | | + + + + + Care Team Providers + +------+ + | Care Acetone Button Paster Name | Role | Phone | + [...] | | | spondylolist | | [address] | | | | | hesis | | [place], | | | | | Spinal | | [place] [address] | | | | | stenosis, | | Phone: | | | | | lumbar | | [phone] | | | | | region, | | Fax: | | | | | without | | [phone] | | | | | neurogenic | [...] | | | | | | | PA ARTHDSIS | | | | | | [...] | | | | | | ION PA | | | | | | | [...] | | | | | | SEG PA | | | | | | | [...] + + | 07/02/ | Hospital | [facility] | Frandy Teresa, | Degenerative disc | | 2013 - | Encounter | MED CTR SURGICAL | DO [address] | disease, lumbar | | | | [address] | [place] [address] [place] | (Primary Dx); | | 07/05/ | | [place] [address] | [id number] | Diabetes mellitus | | 2013 | | [phone] | | ([facility]); Disturbance | | | | [...] might be different fro m the original. [facility] DISCHARGE SUMMARY PATIENT NAME: Cindy [...] Stable for discharge to SNF. DISPOSITION: SNF ([facility]) DISCHARGE MEDICATIONS Medications prior to admission that [...] Take 15 mg by mouth nightl y. [place]-3 Fatty Acids (FISH OIL CONCENTRATE) 1000 MG [...] 0 | 03/31/20 | | | (THIEN LopezLIANNA) 15 | nightly. | | | 12 | 5 | | MG disintegrating | | | | | | | tablet | | | | | | + + + +---------+ + + | [place]-3 Fatty | Take 1,000 mg by | [...] prophylaxis -DC plan: SNF versus home with [facility] any time. Maria T Storm RN - 07/04/2014 6:56 PM PDTFoley cath dc'd and MARI drain dc'd no problems. Chris Lynn PA-C - 07/04/2014 7:43 AM PDT [facility] PROGRESS NOTE Pt. Name/Age/: Cindy Arndt 58 y.o. 1955 Med. Record Number: [id number] Date of admission: 07/02/2014 Subjective: The patient [...] [facility]. D/c mari drain and riley cath today. 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 Patient Active Problem List Diagnosis LUMBAR DISC [...] by: Chris Nicole, 07/04/2014 7:[address] [facility] Chris Lynn PA-C - 07/03/2014 7:13 AM PDT . [facility] PROGRESS NOTE Pt. Name/Age/: Cindy Arndt 58 y.o. 1955 Med. Record Number: [id number] Date of admission: 07/02/2014 Subjective: The patient [...] Electronically signed by: Chris Nicole, 07/03/2014 7:13 [facility] Ton Menjivar, KRIS - 07/03/2014 6:50 [...] [place] | | | | | | [address] | | | | | | | [...] + | [facility] | [address] | [place], [place] | [phone] | | [facility] | | [address] | | | - LABORATORY | | | | + + + + + | [facility] | [address] | [place], [place] | | | [facility] | | [address] | | | - LABORATORY | | [...] + | [facility] | [address] | [place] | [phone] | | [facility] | | [address] | | | - LABORATORY | | | | + + + + + | [facility] | [address] | [place] | | | [facility] | | [address] | | | - LABORATORY | | [...] + | [address] | [address] | [place] | [phone] | | [facility] | | [address] | | | - LABORATORY | | | | + + + + + | [facility] | [address] | [place] | | | [facility] | | [address] | | | - LABORATORY | | [...] + | [facility] | [address] | [place], [place] | [phone] | | [facility] | | [address] | | | - LABORATORY | | | | + + + + + | [facility] | [address] | [place], [place] | | | [facility] | | [address] | | | - LABORATORY | | [...] + | [facility] | [address] | [place] | [phone] | | [facility] | | [address] | | | - LABORATORY | | | | + + + + + | [facility] | [address] | [place] | | | [facility] | | [address] | | | - LABORATORY | | [...] + | [facility] | [address] | [place] | [phone] | | [facility] | | [address] | | | - LABORATORY | | | | + + + + + | [facility] | [address] | [place] | | | [facility] | | [address] | | | - LABORATORY | | [...] [address] | [place] | [phone] | | [facility] | | [address] | | | - LABORATORY | | | | + + + + + | [address] [facility] | [address] | [place] | | | [facility] | | [address] | | | - LABORATORY | | [...] + | [facility] | [address] | [place], [place] | [phone] | | [facility] | | [address] | | | - LABORATORY | | | | + + + + + | [facility] | [address] | [place], [place] | | | [facility] | | [address] | | | - LABORATORY | | [...] [address] | [place] | [phone] | | [facility] | | [address] | | | - LABORATORY | | | | + + + + + | [facility] [facility] | [address] | [place], [place] | | | [facility] | | [address] | | | - LABORATORY | | [...] | of hardware for posterior fusion from S1tkckymk S1 with interbody hardware at L5-S1. The [...] + | MISCELLANEOUS LAB | | | [phone] | + +---------+ + + | MISCELANIOUS LAB | | | [phone] | + +---------+ + + POC Glucose [...] + | [facility] | [address] | [place], [place] | [phone] | | [facility] | | [address] | | | - LABORATORY | | | | + + + + + | [facility] | [address] | [place], [place] | | | [facility] | | [address] | | | - LABORATORY | | [...] + | [facility] | [address] | [place] | [phone] | | [facility] | | [address] | | | - LABORATORY | | | | + + + + + | [facility] | [address] | [place] | | | [facility] | | [address] | | | - LABORATORY | | [...] + | [facility] | [address] | [place] | [phone] | | [facility] | | [address] | | | - LABORATORY | | | | + + + + + | [facility] | [address] | [place] | | | [facility] | | [address] | | | - LABORATORY | | [...] + | [facility] [facility] | [address] | [place], [place] | [phone] | | [facility] | | [address] | | | - LABORATORY | | | | + + + + + | [facility] [facility] | [address] | [place] | | | [facility] | | [address] | | | - LABORATORY | | [...] + | [facility] | [address] | [place] | [phone] | | [facility] | | [address] | | | - LABORATORY | | | | + + + + + | [facility] | [address] | [place] | | | [facility] | | [address] | | | - LABORATORY | | [...] [facility] | | [address] | | | - BLOOD BANK | [...] + +---------+ +---+---+---+ | morphine 5 mg/mL ORACLE SQL DEVELOPER syringe | New Bag | 07/02/20 | [...] | | | | Dose(mg): 0, Starting ORACLE SQL DEVELOPER | | | | | | | Dose(mg): 1, Incremental Increase | | | | | | | ORACLE SQL DEVELOPER Dose(mg): 0.5, Maximum ORACLE SQL DEVELOPER | | | | | | | [...]
--- OUTSIDE RECORDS SUMMARY | ~2019-09-18 | XMS | Encounter Summary ---
Demographics + + + | Address | [address] | | | [place] [address] | + + + | Home Phone [...] [place] | | | | | [address] | | + + + + + Care Team Providers + +------+ + | Care Foundation Director Name | Role | Phone | [...] + | 07/19/ | Telephone | [facility] | Frandy Teresa, | Appointment | | 2013 | | NEUROSURGERY [address] | DO [address] | | | | | [address] | [address] [place], [place] | | | | | [place], [place] | [address] | | | | | [address] | | | | | | [phone] | | | +--------+ + + + [...] [place] | | | | | | [address] | | | | | | | | +--------+---------+ + + + documented as of this encounter Visit Diagnoses Not on filedocumented in this encounter"
--- OUTSIDE RECORDS SUMMARY | ~2019-09-18 | XMS | Encounter Summary ---
Demographics + + + | Address | [address] | | | [place] [address] | + + + | Home Phone [...] [place] | | | | | [address] | | + + + + + Care Team Providers + +------+ + | Care Client Experience Manager Name | Role | Phone | [...] [address] | [address] [place], [place] | | | | | [place], [place] | [phone] | | | | | [address] | | | | | | [phone] | | | +--------+ + + + [...] | | | | | [place] | | | | | | [address] | | | | | | | | +--------+---------+ + + + documented as of this encounter Visit Diagnoses Not on filedocumented in this encounter"
--- OUTSIDE RECORDS SUMMARY | ~2019-09-18 | XMS | Encounter Summary ---
Demographics + + + | Address | [address] | | | [place] [address] | + + + | Home Phone [...] [place] | | | | | [address] | | + + + + + Care Team Providers + +------+ + | Care Mold Repairer Name | Role | Phone | [...] + + | 08/08/ | Telephone | [facility] | Ashley Chávez | Other (Questions | | 2019 | | CARDIOLOGY [place] | Pollo, Processing Lead | about coverage. ) | | | | [address] | | | | | | [place] | | | | | | [address] | | | | | | [phone] | | | +--------+ + + + [...] | | | | | [place] | | | | | | [address] | | | | | | | | +--------+---------+ + + + documented as of this encounter Visit Diagnoses Not on filedocumented in this encounter"
--- OUTSIDE RECORDS SUMMARY | ~2019-09-18 | XMS | Encounter Summary ---
Demographics + + + | Address | [address] | | | [place] [address] | + + + | Home Phone [...] [place] | | | | | [address] | | + + + + + Care Team Providers + +------+ + | Care Wall Washer Name | Role | Phone | [...] + + | 04/30/ | Office | [facility] | Russell Alfaro PA | ROGERS on CPAP (Primary | | 2015 | Visit | SLEEP DISORDER [address] | [address] | Dx) | | | | [address] | [place] | | | | | [place] [address] | [address] | | | | | [phone] | | | +--------+---------+ + + + [...] Insomnia Severity Index Insomnia Severity Index 13 Marne Sleepiness Scale Sitting and reading 3 Watching [...] nasal obtained from: [facility] [place] pressure: 11-20 cm Median: 12.1 cm 95%: [...] appro priate paperwork. Thirty minutes were spent [id number]-fout, with the majority of time spent i [...] | | | | | [place] [place], [place] | | | | | | [address] | | | | | | | | +--------+---------+ + + + documented as of this encounter Visit Diagnoses + + | Diagnosis | + + | ROGERS on CPAP - Primary Obstructive sleep apnea (adult) (pediatric) | + + documented in this encounter"
--- OUTSIDE RECORDS SUMMARY | ~2019-09-18 | XMS | Encounter Summary ---
Demographics + + + | Address | [address] | | | [place] [address] | + + + | Home Phone [...] [place] | | | | | [address] | | + + + + + Care Team Providers + +------+ + | Care Stage Rigger Name | Role | Phone | [...] + + | 08/21/ | Documentati | [facility] | Katharine Moncada, | Other (urgent | | 2019 | on | CARDIOLOGY [place] | Technologist | report) | | | | [address] | | | | | | [place] | | | | | | [address] | | | | | | [phone] | | | +--------+ + + + [...] [place] | | | | | | [address] | | | | | | | | +--------+---------+ + + + documented as of this encounter Visit Diagnoses Not on filedocumented in this encounter"
--- OUTSIDE RECORDS SUMMARY | ~2019-09-18 | XMS | Encounter Summary ---
Demographics + + + | Address | [address] | | | [place] [address] | + + + | Home Phone [...] [place] | | | | | [address] | | + + + + + Care Team Providers + +------+ + | Care Foundry Hand Name | Role | Phone | + +------+ + | Basim Bolanos MD | PCP | | + +------+ + Encounter Details +--------+ + + + + | Date | Type | Department | Care Team | Description | +--------+ + + + + | 03/30/ | Hospital | [facility] | Tyrese Neely MD | | | 2012 | Encounter | MED CTR MP INTRA OP | [address] [place] | | | | | [address] | [address] [place], [place] | | | | | [place], [place] | [address] | | | | | [address] | | | | | | [phone] | | | +--------+ + + + [...] + + + +---------+ + + | [place]-3 Fatty | Take 1,000 mg by | [...] [place] | | | | | | [address] | | | | | | | [...] + | [facility] | [address] | [place] | [phone] | | [facility] | | [address] | | | - LABORATORY | | | | + + + + + | [facility] | [address] | [place] | | | [facility] | | [address] | | | - LABORATORY | | [...] + | [facility] | [address] | [place], [place] | [phone] | | [facility] | | [address] | | | - LABORATORY | | | | + + + + + | [facility] | [address] | [place], [place] | | | [facility] | | [address] | | | - LABORATORY | | | | + + + + + documented in this encounter Visit Diagnoses Not on filedocumented in this encounter"
--- OUTSIDE RECORDS SUMMARY | ~2019-09-18 | XMS | Encounter Summary ---
Demographics + + + | Address | [address] | | | [place] [address] | + + + | Home Phone [...] [place] | | | | | [address] | | + + + + + Care Team Providers + +------+ + | Care Zoo Veterinarian Name | Role | Phone | + [...] + + | 08/16/ | Telephone | [facility] | Ashley Chávez | Other (Called to | | 2018 | | CARDIOLOGY [place] | Pollo, Hobber | tell patient what | | | | [address] | | Nicholas said. ) | | | | [address] | | | | | | [place] | | | | | | [address] | | | | | | [phone] | | | +--------+ + + + [...] [place] | | | | | | [address] | | | | | | | | +--------+---------+ + + + documented as of this encounter Visit Diagnoses Not on filedocumented in this encounter"
--- OUTSIDE RECORDS SUMMARY | ~2019-09-18 | XMS | Encounter Summary ---
Demographics + + + | Address | [address] | | | [place] [address] | + + + | Home Phone [...] [place], [place] | | | | | [address] | | + + + + + Care Team Providers + +------+ + | Care Dry Heat Cabinet Attendant Name | Role | Phone | + +------+ + PCP | Unavailable | + +------+ + Encounter Details +--------+ + + + + | Date | Type | Department | Care Team | Description | +--------+ + + + + | 02/02/ | Hospital | [facility] | | | | 1997 - | Encounter | MED CTR GENERIC PSY | | | | | | CONV DEPT [address] | | | | 02/05/ | | [address], | | | | 1997 | | [place] [address] | | | | | | [phone] | | | +--------+ + + + [...] [place] | | | | | | [address] | | | | | | | | +--------+---------+ + + + documented as of this encounter Visit Diagnoses Not on filedocumented in this encounter"
--- OUTSIDE RECORDS SUMMARY | ~2019-09-18 | XMS | Encounter Summary ---
Demographics + + + | Address | [address] | | | [place] [address] | + + + | Home Phone [...] [place], [place] | | | | | [address] | | + + + + + Care Team Providers + +------+ + | Care Defence Force Member Other Ranks Name | Role | Phone | + +------+ + PCP | Unavailable | + +------+ + Encounter Details +--------+ + + + + | Date | Type | Department | Care Team | Description | +--------+ + + + + | 04/16/ | Hospital | [facility] | | | | 1997 | Encounter | MED CTR XRAY [address] | | | | | [address] | | | | | | [place] [address] | | | | | | [phone] | | | +--------+ + + + [...] | | | | | [place] | | | | | | [address] | | | | | | | | +--------+---------+ + + + documented as of this encounter Visit Diagnoses Not on filedocumented in this encounter"
--- OUTSIDE RECORDS SUMMARY | ~2019-09-18 | XMS | Encounter Summary ---
Demographics + + + | Address | [address] | | | [place] [address] | + + + | Home Phone [...] [place] | | | | | [address] | | + + + + + Care Team Providers + +------+ + | Care Apartment Hotel Manager Name | Role | Phone | [...] + | 12/03/ | Refill | [facility] | Frandy Teresa, | Medication Refill | | 2014 | | NEUR[address] | DO [address] | | | | | [address] | [address] [place], [place] | | | | | [place], [place] | [id number] | | | | | [address] | | | | | | [phone] | | | +--------+--------+ + + + [...] | | | | | [place] | | | | | | [address] | | | | | | | | +--------+---------+ + + + documented as of this encounter Visit Diagnoses Not on filedocumented in this encounter"
--- OUTSIDE RECORDS SUMMARY | ~2019-09-18 | XMS | Encounter Summary ---
Demographics + + + | Address | [address] | | | [place] [address] | + + + | Home Phone [...] [place] | | | | | [address] | | + + + + + Care Team Providers + +------+ + | Care Route Agent Name | Role | Phone | + +------+ + | Natalee Andersen NP | PCP | | + +------+ + Encounter Details +--------+ + + + + | Date | Type | Department | Care Team | Description | +--------+ + + + + | 07/06/ | Hospital | [facility] | Latricia Feliciano | | | 2014 | Encounter | MED CTR ACUTE | D, PT [address] | | | | | PHYSICAL THERAPY | [place] | | | | | [address] | [address] | | | | | [place] [address] | | | | | | [phone] | | | +--------+ + + + [...] + + + +---------+ + + | [place]-3 Fatty | Take 1,000 mg by | [...] | | | | | [place] | | | | | | [address] | | | | | | | | +--------+---------+ + + + documented as of this encounter Visit Diagnoses Not on filedocumented in this encounter"
--- OUTSIDE RECORDS SUMMARY | ~2019-09-18 | XMS | Encounter Summary ---
Demographics + + + | Address | [address] | | | [place] [address] | + + + | Home Phone [...] [place] | | | | | [address] | | + + + + + Care Team Providers + +------+ + | Care Stain Applicator Name | Role | Phone | [...] | Frandy Simons DO | [address] | | | | | of skin | [address] | [place], | | | | | sensation | [address] | [place] | | | | | Arthrodesis | [place], [place] | [address] | | | | | status Left | [address] | Phone: | | | | | leg | Phone: | [phone] | | | | | weakness | [phone] | Fax: | | | | | Procedures | Fax: | [phone] | | | | | MRI Lumbar | [phone] | | | | | | Spine [...] [address] | [address] [place], [place] | | | | | [place], [place] | [address] | | | | | [address] | | | | | | [phone] | | | +--------+ + + + [...] [place] | | | | | | [address] | | | | | | | [...] the round structure with high T1 and A6iwhcad in the right L3 vertebral | | [...] + | MISCELLANEOUS LAB | | | [phone] | + +---------+ + + | MISCELANIOUS LAB | | | [phone] | + +---------+ + + documented in [...]
--- OUTSIDE RECORDS SUMMARY | ~2019-09-18 | XMS | Encounter Summary ---
Demographics + + + | Address | [address] | | | [place] [address] | + + + | Home Phone [...] + | Araceli Sibley | ECON | [place] | | | | | [address] | | + + + + + Care Team Providers + +------+ + | Care Shafting Worker Name | Role | Phone | [...] + + | 08/20/ | Documentati | [facility] | Katharine Moncada, | Other (urgent | | 2019 | on | CARDIOLOGY [place] | Technologist | report) | | | | [address] | | | | | | [place] | | | | | | [address] | | | | | | [phone] | | | +--------+ + + + [...] [place] | | | | | | [address] | | | | | | | | +--------+---------+ + + + documented as of this encounter Visit Diagnoses Not on filedocumented in this encounter"
--- OUTSIDE RECORDS SUMMARY | ~2019-09-18 | XMS | Encounter Summary ---
Demographics + + + | Address | [address] | | | [place] [address] | + + + | Home Phone [...] [place] | | | | | [address] | | + + + + + Care Team Providers + +------+ + | Care Billposting Supervisor Name | Role | Phone | [...] + | 08/20/ | Documentati | [facility] | Katharine Moncada, | Other (urgent | | 2019 | on | CARDIOLOGY [place] | Technologist | report) | | | | [address] | | | | | | [place] | | | | | | [address] | | | | | | [phone] | | | +--------+ + + + [...] [place] | | | | | | [address] | | | | | | | | +--------+---------+ + + + documented as of this encounter Visit Diagnoses Not on filedocumented in this encounter"
--- OUTSIDE RECORDS SUMMARY | ~2019-09-18 | XMS | Encounter Summary ---
Demographics + + + | Address | [address] | | | [place] [address] | + + + | Home Phone [...] [place] | | | | | [address] | | + + + + + Care Team Providers + +------+ + | Care Practicing Dermatologist Name | Role | Phone | + +------+ + | Basim Bolanos MD | PCP | | + +------+ + Encounter Details +--------+ + + + + | Date | Type | Department | Care Team | Description | +--------+ + + + + | 02/22/ | Abstract | [facility] [place] | [facility], | | | 2012 | | GASTROENTEROLOGY | [place]O [address] | | | | | [address] [place] | [place] | | | | | [address] [place], [place] | [place], [place] | | | | | [address] | [address] | | | | | [phone] | | | +--------+ + + + [...] [place] | | | | | | [address] | | | | | | | | +--------+---------+ + + + documented as of this encounter Visit Diagnoses Not on filedocumented in this encounter"
--- OUTSIDE RECORDS SUMMARY | ~2019-09-18 | XMS | Encounter Summary ---
Demographics + + + | Address | [address] | | | [place] [address] | + + + | Home Phone [...] [place] | | | | | [address] | | + + + + + Care Team Providers + +------+ + | Care Business Education Teacher Name | Role | Phone | [...] [place] | | | | | | [address] | | | | | | [phone] | | | +--------+ + + + [...] [place] | | | | | | [address] | | | | | | | | +--------+---------+ + + + documented as of this encounter Visit Diagnoses Not on filedocumented in this encounter"
--- OUTSIDE RECORDS SUMMARY | ~2019-09-18 | XMS | Encounter Summary ---
Demographics + + + | Address | [address] | | | [place] [address] | + + + | Home Phone [...] [place], [place] | | | | | [address] | | + + + + + Care Team Providers + +------+ + | Care Public Finance Specialist Name | Role | Phone | + +------+ + PCP | Unavailable | + +------+ + Encounter Details +--------+ + + + + | Date | Type | Department | Care Team | Description | +--------+ + + + + | 04/16/ | [facility] | [facility] | Deon Gonzales | | | 2005 | Encounter | MED CTR SLEEP | MD [place] | | | | | [place] [address] | [address] [place] | | | | | [place], [place] | [place] [address] | | | | | [address] | [phone] | | | | | [phone] | | | +--------+ + + + [...] [place] | | | | | | [address] | | | | | | | | +--------+---------+ + + + documented as of this encounter Visit Diagnoses Not on filedocumented in this encounter"
--- OUTSIDE RECORDS SUMMARY | ~2019-09-18 | XMS | Encounter Summary ---
Demographics + + + | Address | [address] | | | [place] [address] | + + + | Home Phone [...] [place] | | | | | [address] | | + + + + + Care Team Providers + +------+ + | Care Military Analyst Name | Role | Phone | [...] + + | 06/12/ | Office | [facility] | Chris Nicole, | Spondylisthesis | | 2013 | Visit | NEUROSURGERY [address] | PA-C [address] | (Primary Dx); | | | | [address] | [place], [place] | Radiculopathy of | | | | [place], [place] | [address] | leg; Lumbar spine | | | | [address] | | instability; Lumbar | | | | [phone] | | spondylosis; | | | | [...] rom the original. ZANE Castillo [address] [place] [address] FAX: NEUROSURGERY HISTORY AND PHYSICAL [...] Take 15 mg by mouth nightl y. [place]-3 Fatty Acids (FISH OIL CONCENTRATE) 1000 MG [...] has no apparent deficits with short or senior care memory. CRANIAL NERVES: II: Acuity is intact. [...] Intrinsics 5 5 Ulnar Intrinsics 5 5 Lamp Wirer Strength 5 5 Hip Flexion 5 4* [...] [place] | | | | | | [address] | | | | | | | [...]
--- OUTSIDE RECORDS SUMMARY | ~2019-09-18 | XMS | Encounter Summary ---
Demographics + + + | Address | [address] | | | [place] [address] | + + + | Home Phone [...] [place] | | | | | [address] | | + + + + + Care Team Providers + +------+ + | Care Sludge Filtration Attendant Name | Role | Phone | [...] + + | 02/01/ | Telephone | [facility] | Frandy Teresa, | Imaging Only | | 2019 | | NEUROSURGERY [address] | DO [address] | | | | | [address] | [address] [place], [place] | | | | | [place], [place] | [address] | | | | | [address] | | | | | | [phone] | | | +--------+ + + + [...] [place] | | | | | | [address] | | | | | | | | +--------+---------+ + + + documented as of this encounter Visit Diagnoses Not on filedocumented in this encounter"
--- OUTSIDE RECORDS SUMMARY | ~2019-09-18 | XMS | Encounter Summary ---
Demographics + + + | Address | [address] | | | [place] [address] | + + + | Home Phone [...] [place], [place] | | | | | [address] | | + + + + + Care Team Providers + +------+ + | Care Decontamination Technician Name | Role | Phone | + +------+ + PCP | Unavailable | + +------+ + Encounter Details +--------+ + + + + | Date | Type | Department | Care Team | Description | +--------+ + + + + | 02/22/ | Hospital | [facility] | | | | 1996 - | Encounter | MED CTR GENERIC PSY | | | | | | CONV DEPT [address] | | | | 02/26/ | | [address] [place], | | | | 1996 | | [place] [address] | | | | | | [phone] | | | +--------+ + + + [...] [place] | | | | | | [address] | | | | | | | | +--------+---------+ + + + documented as of this encounter Visit Diagnoses Not on filedocumented in this encounter"
--- OUTSIDE RECORDS SUMMARY | ~2019-09-18 | XMS | Encounter Summary ---
Demographics + + + | Address | [address] | | | [place] [address] | + + + | Home Phone [...] [place] | | | | | [address] | | + + + + + Care Team Providers + +------+ + | Care Gear Repairer Name | Role | Phone | [...] | | | | | | [place] [address] | | | | | | [phone] | | | | | | | [...] in | | | | | | [place] with a | | | | | [...] [facility] | | | | | | [facility] | | | | | | Laboratory, [place], | | | | | | [place], delivered | | | | | [...] by | | | | | | tpunqbfcOck-Xlc-M: | | | | | | Increased [...] istryMHC-1: | | | | | | IqfoeoteDK59 stain | | | | | | [...] | + + + + + | [facility] | [address] | [place] [address] | | | PATHOLOGY | [place] | | | + + + + + documented in this encounter Visit Diagnoses Not on filedocumented in this encounter
--- OUTSIDE RECORDS SUMMARY | ~2019-09-18 | XMS | Encounter Summary ---
Demographics + + + | Address | [address] | | | [place] [address] | + + + | Home Phone [...] [place] | | | | | [address] | | + + + + + Care Team Providers + +------+ + | Care Scouring Train Operator Name | Role | Phone [...] + + | 08/20/ | Documentati | [facility] | Katharine Moncada, | Other (urgent | | 2019 | on | CARDIOLOGY [place] | Technologist | report) | | | | [address] | | | | | | [place] | | | | | | [address] | | | | | | [phone] | | | +--------+ + + + [...] [place] | | | | | | [address] | | | | | | | | +--------+---------+ + + + documented as of this encounter Visit Diagnoses Not on filedocumented in this encounter"
--- OUTSIDE RECORDS SUMMARY | ~2019-09-18 | XMS | Encounter Summary ---
Demographics + + + | Address | [address] | | | [place] [address] | + + + | Home Phone [...] [place] | | | | | [address] | | + + + + + Care Team Providers + +------+ + | Care Medical Office Assistant Name | Role | Phone [...] + + | 08/15/ | Documentati | [facility] | Katharine Moncada, | Other (urgent | | 2019 | on | CARDIOLOGY [place] | Technologist | report) | | | | [address] | | | | | | [place] | | | | | | [address] | | | | | | [phone] | | | +--------+ + + + [...] [place] | | | | | | [address] | | | | | | | | +--------+---------+ + + + documented as of this encounter Visit Diagnoses Not on filedocumented in this encounter"
--- OUTSIDE RECORDS SUMMARY | ~2019-09-18 | XMS | Encounter Summary ---
Demographics + + + | Address | [address] | | | [place] [address] | + + + | Home Phone [...] [place], [place] | | | | | [address] | | + + + + + Care Team Providers + +------+ + | Care Primary Care Provider Name | Role | Phone | + +------+ + PCP | Unavailable | + +------+ + Encounter Details +--------+ + + + + | Date | Type | Department | Care Team | Description | +--------+ + + + + | 02/22/ | Hospital | [facility] | | | | 1996 - | Encounter | MED CTR GENERIC PSY | | | | | | CONV DEPT [address] | | | | 02/26/ | | [address], | | | | 1996 | | [place] [address] | | | | | | [phone] | | | +--------+ + + + [...] [place] | | | | | | [address] | | | | | | | | +--------+---------+ + + + documented as of this encounter Visit Diagnoses Not on filedocumented in this encounter"
--- OUTSIDE RECORDS SUMMARY | ~2019-09-18 | XMS | Encounter Summary ---
Demographics + + + | Address | [address] | | | [place] [address] | + + + | Home Phone | | + + + | Preferred Language | Unknown | + + + | Marital Status | Single | + + + | Muslim Affiliation | Unknown | + + + | Race | White | + + + | Ethnic Group | Not or | + + + Author + + + | Author | [facility] | + + + | Organization | [facility] | + + + | Address | Unknown | + + + | Phone | Unavailable | + + + Support + + + + + | Name | Relationship | Address | Phone | + + + + + | Kelsy Bautista | ECON | [address] | | | | | [place] | | | | | [address] | | + + + + + Care Team Providers + +------+ + | Care Hot Dimpling Machine Operator Name | Role | Phone | + +------+ + PCP | Unavailable | + +------+ + Encounter Details +--------+ + + + + | Date | Type | Department | Care Team | Description | +--------+ + + + + | 07/03/ | Office | General Internal | Note, Outpatient | Progress Note | | 1996 | Visit-Trans | Medicine [address] | Clinic | | | | isabelle | [address] | | | | | | Mailcode: L475 | | | | | | Outpatient Clinic | | | | | | [address] | | | | | | [place], [place] | | | | | | [address] | | | | | | [phone] | | | +--------+ + + + [...] as of this encounter Progress Notes Interface, Hvac Services Professional In - 12/11/2006 5:03 AM [facility] DATE: 07/03/97 INFECTIOUS DISEASE CLINIC: [...]
--- OUTSIDE RECORDS SUMMARY | ~2019-09-18 | XMS | Encounter Summary ---
Demographics + + + | Address | [address] | | | [place] [address] | + + + | Home Phone [...] [place] | | | | | [address] | | + + + + + Care Team Providers + +------+ + | Care Basic Combatant Swimmer Name | Role | Phone | + +------+ + | Basim Bolanos MD | PCP | | + +------+ + Encounter Details +--------+ + + + + | Date | Type | Department | Care Team | Description | +--------+ + + + + | 04/18/ | Abstract | [facility] [place] | [facility], | | | 2012 | | GASTROENTEROLOGY | [place] [address] | | | | | [address] [place] | [place], [address] | | | | | [address] [place], [place] | [place], [place] | | | | | [address] | [address] | | | | | [phone] | | | +--------+ + + + [...] | | | | | [place] | | | | | | [address] | | | | | | | | +--------+---------+ + + + documented as of this encounter Visit Diagnoses Not on filedocumented in this encounter"
--- OUTSIDE RECORDS SUMMARY | ~2019-09-18 | XMS | Encounter Summary ---
Demographics + + + | Address | [address] | | | [place] [address] | + + + | Home Phone [...] [place] | | | | | [address] | | + + + + + Care Team Providers + +------+ + | Care Salicylic Acid Blender Name | Role | Phone | [...] [address] | | | | | [place], [place] | Shaheen Simons | | | | | [address] | [place] [address] | | | | | [phone] | [phone] | | | | | | | [...] [place] | | | | | | [address] | | | | | | | [...] GIVEN Testing | | | performed at [facility];[address] [place] [address] CULTURE | | | 50,000 TO 100,000 CFU/ML | | | MIXED GRAM POSITIVE HAIDER NO SUSCEPTIBILITY TO FOLLOW | | | MULTIPLE ORGANISM TYPES PRESENT, | | | SUGGESTIVE OF CONTAMINATION OR COLONIZATION. SUGGEST RECOLLECTION FOR | | | CULTURE. Testing | | | performed at [facility];[address] [place] [address];[place] [address] REPORT | | | STATUS 06/08/2012 FINAL [...]
--- OUTSIDE RECORDS SUMMARY | ~2019-09-18 | XMS | Encounter Summary ---
Demographics + + + | Address | [address] | | | [place] [address] | + + + | Home Phone [...] [place] | | | | | [address] | | + + + + + Care Team Providers + +------+ + | Care Shrimper Name | Role | Phone | + [...] + + | 08/13/ | Documentati | [facility] | Katharine Moncada, | Other (urgent | | 2019 | on | CARDIOLOGY [place] | Technologist | report) | | | | [address] | | | | | | [place] | | | | | | [address] | | | | | | [phone] | | | +--------+ + + + [...] [place] | | | | | | [address] | | | | | | | | +--------+---------+ + + + documented as of this encounter Visit Diagnoses Not on filedocumented in this encounter"
--- OUTSIDE RECORDS SUMMARY | ~2019-09-18 | XMS | Encounter Summary ---
Demographics + + + | Address | [address] | | | [place] [address] | + + + | Home Phone [...] [place], [place] | | | | | [address] | | + + + + + Care Team Providers + +------+ + | Care Bioprocessing Manufacturing Technician Name | Role | Phone | + +------+ + PCP | Unavailable | + +------+ + Encounter Details +--------+ + + + + | Date | Type | Department | Care Team | Description | +--------+ + + + + | 05/25/ | Hospital | [facility] | | | | 1991 | Encounter | MED CTR LABORATORY | | | | | | [address] | | | | | | [place] | | | | | | [address] | | | | | | [phone] | | | +--------+ + + + [...] | | | | | [place] | | | | | | [address] | | | | | | | | +--------+---------+ + + + documented as of this encounter Visit Diagnoses Not on filedocumented in this encounter"
--- OUTSIDE RECORDS SUMMARY | ~2019-09-18 | XMS | Encounter Summary ---
Demographics + + + | Address | [address] | | | [place] [address] | + + + | Home Phone [...] [place], [place] | | | | | [address] | | + + + + + Care Team Providers + +------+ + | Care Credit Operations Specialist Name | Role | Phone | + +------+ + PCP | Unavailable | + +------+ + Encounter Details +--------+ + + + + | Date | Type | Department | Care Team | Description | +--------+ + + + + | 06/07/ | Hospital | [facility] | | | | 1991 - | Encounter | MED CTR GENERIC OP | | | | | | CONV DEPT [address] | | | | 10/07/ | | [address], | | | | 1991 | | [place] [address] | | | | | | [phone] | | | +--------+ + + + [...] [place] | | | | | | [address] | | | | | | | | +--------+---------+ + + + documented as of this encounter Visit Diagnoses Not on filedocumented in this encounter"
--- OUTSIDE RECORDS SUMMARY | ~2019-09-18 | XMS | Encounter Summary ---
Demographics + + + | Address | [address] | | | [place] [address] | + + + | Home Phone [...] [place], [place] | | | | | [address] | | + + + + + Care Team Providers + +------+ + | Care Oxide Furnace Tender Name | Role | Phone | + +------+ + PCP | Unavailable | + +------+ + Encounter Details +--------+ + + + + | Date | Type | Department | Care Team | Description | +--------+ + + + + | 06/30/ | Hospital | [facility] | | | | 1999 - | Encounter | MED CTR GENERIC PSY | | | | | | CONV DEPT [address] | | | | 07/05/ | | [place], | | | | 1999 | | [place] [address] | | | | | | [phone] | | | +--------+ + + + [...] [place] | | | | | | [address] | | | | | | | | +--------+---------+ + + + documented as of this encounter Visit Diagnoses Not on filedocumented in this encounter"
--- OUTSIDE RECORDS SUMMARY | ~2019-09-18 | XMS | Encounter Summary ---
Demographics + + + | Address | [address] | | | [place] [address] | + + + | Home Phone [...] [place] | | | | | [address] | | + + + + + Care Team Providers + +------+ + | Care Vacuum Conditioner Operator Name | Role | Phone | [...] + + | 08/13/ | Documentati | [facility] | Katharine Moncada, | Other (urgent | | 2019 | on | CARDIOLOGY [place] | Technologist | report) | | | | [address] | | | | | | [place] | | | | | | [address] | | | | | | [phone] | | | +--------+ + + + [...] [place] | | | | | | [address] | | | | | | | | +--------+---------+ + + + documented as of this encounter Visit Diagnoses Not on filedocumented in this encounter"
--- OUTSIDE RECORDS SUMMARY | ~2019-09-18 | XMS | Encounter Summary ---
Demographics + + + | Address | [address] | | | [place] [address] | + + + | Home Phone [...] [place] | | | | | [address] | | + + + + + Care Team Providers + +------+ + | Care Coke Production Heater Name | Role | Phone | + +------+ + | Basim Bolanos MD | PCP | | + +------+ + Encounter Details +--------+ + + + + | Date | Type | Department | Care Team | Description | +--------+ + + + + | 03/01/ | Abstract | [facility] [place] | [facility], | | | 2012 | | GASTROENTEROLOGY | [address]O [address] | | | | | [address] [place] | [place], [address] | | | | | [address] [place], [place] | [place], [place] | | | | | [address] | [address] | | | | | [phone] | | | +--------+ + + + [...] [place] | | | | | | [address] | | | | | | | | +--------+---------+ + + + documented as of this encounter Visit Diagnoses Not on filedocumented in this encounter"
--- OUTSIDE RECORDS SUMMARY | ~2019-09-18 | XMS | Encounter Summary ---
Demographics + + + | Address | [address] | | | [place] [address] | + + + | Home Phone [...] [place] | | | | | [address] | | + + + + + Care Team Providers + +------+ + | Care Air Compressor Mechanic Name | Role | Phone | [...] + + | 08/16/ | Documentati | [facility] | Katharine Moncada, | Other (urgent | | 2019 | on | CARDIOLOGY [place] | Technologist | report) | | | | [address] | | | | | | [place] | | | | | | [address] | | | | | | [phone] | | | +--------+ + + + [...] [place] | | | | | | [address] | | | | | | | | +--------+---------+ + + + documented as of this encounter Visit Diagnoses Not on filedocumented in this encounter"
--- OUTSIDE RECORDS SUMMARY | ~2019-09-18 | XMS | Encounter Summary ---
Demographics + + + | Address | [address] | | | [place] [address] | + + + | Home Phone [...] [place] | | | | | [address] | | + + + + + Care Team Providers + +------+ + | Care Bag Valver Name | Role | Phone | + [...] | Services | ogy | Epigastric | [facility], | Tyrese Shelley MD | | | Required | | abdominal | [place], | [address], | | | | | pain GERD | PRODUCT TRANSFER PUMPER [address] | [address] | | | | | (gastroesoph | [address], [address] | [place], | | | | | ageal reflux | [address] [place] | [place] [address] | | | | | disease) | [place], [place] | Phone: | | | | | Fatty liver | [address] | [phone] | | | | | DM | Phone: | Fax: | | | | | (diabetes | [phone] | [phone] | | | | | mellitus) | Fax: | | | | | | (HCC) | [phone] | | +--------+ + + + + + Reason for Visit + + + | Reason | Comments | + + + | Gastroesophageal | epigastric pain | | Reflux | | + + + Encounter Details +--------+---------+ + + + | Date | Type | Department | Care Team | Description | +--------+---------+ + + + | 03/06/ | Office | [facility] | [facility], | Epigastric abdominal | | 2012 | Visit | GASTROENTEROLOGY | FORTUNATO [address] | pain (Primary Dx); | | | | [address] [place] | [address], [address] | GERD | | | | [address] [place], [place] | [place], [place] | (gastroesophageal | | | | [address] | [address] | reflux disease); | | | | [phone] | | Fatty liver; DM | | [...] years ago by Dr. Saravanan Tsai, in [facility]. Colonoscopy was done 05/[address] Hamlin in [facility]. Allergies Allergen Reactions Demerol Duloxetine Erythromycin [...] | 2019 | Visit | | [address] | | | | | | [place], [place] | | | | | | [id number] | | | | | | | [...]
--- OUTSIDE RECORDS SUMMARY | ~2019-09-18 | XMS | Encounter Summary ---
Demographics + + + | Address | [address] | | | [place] [address] | + + + | Home Phone [...] [place] | | | | | [address] | | + + + + + Care Team Providers + +------+ + | Care Soccer Ball Assembler Name | Role | Phone | [...] | SLEEP DISORDER [address] | [address] | | | | | [address] [place] | [place], [place] | | | | | [place] [address] | [address] | | | | | [phone] | | | +--------+ + + + [...] | | | | | [place] | | | | | | [address] | | | | | | | | +--------+---------+ + + + documented as of this encounter Visit Diagnoses Not on filedocumented in this encounter"
--- OUTSIDE RECORDS SUMMARY | ~2019-09-18 | XMS | Encounter Summary ---
Demographics + + + | Address | [address] | | | [place] [address] | + + + | Home Phone [...] [place] | | | | | [address] | | + + + + + Care Team Providers + +------+ + | Care Supervisor Hide House Name | Role | Phone | + [...] [address] | [address] [place], [place] | | | | | [place], [place] | [id number] | | | | | [address] | | | | | | [phone] | | | +--------+ + + + [...] | | | | | [place] | | | | | | [address] | | | | | | | | +--------+---------+ + + + documented as of this encounter Visit Diagnoses Not on filedocumented in this encounter"
--- OUTSIDE RECORDS SUMMARY | ~2019-09-18 | XMS | Encounter Summary ---
Demographics + + + | Address | [address] | | | [place] [address] | + + + | Home Phone [...] [place] | | | | | [address] | | + + + + + Care Team Providers + +------+ + | Care Tableau Administrator Name | Role | Phone | [...] [place] | | | | | | [address] | | | | | | [phone] | | | +--------+ + + + [...] [place] | | | | | | [address] | | | | | | | | +--------+---------+ + + + documented as of this encounter Visit Diagnoses Not on filedocumented in this encounter"
--- OUTSIDE RECORDS SUMMARY | ~2019-09-18 | XMS | Encounter Summary ---
Demographics + + + | Address | [address] | | | [place] [address] | + + + | Home Phone [...] [place] | | | | | [address] | | + + + + + Care Team Providers + +------+ + | Care Entry Level Web Developer Name | Role | Phone | + +------+ + | Natalee Andersen NP | PCP | | + +------+ + Encounter Details +--------+ + + + + | Date | Type | Department | Care Team | Description | +--------+ + + + + | 07/25/ | Hospital | [facility] | Frandy Teresa, | Status post lumbar | | 2014 | Encounter | MED CTR XRAY [address] | DO [address] | spinal fusion | | | | [place] | [address] [place], [place] | | | | | [place] [address] | [address] | | | | | [phone] | | | +--------+ + + + [...] + + + +---------+ + + | [place]-3 Fatty | Take 1,000 mg by | [...] [place] | | | | | | [address] | | | | | | | [...] + | MISCELLANEOUS LAB | | | [phone] | + +---------+ + + | MISCELANIOUS LAB | | | [phone] | + +---------+ + + documented in this encounter Visit Diagnoses + + | Diagnosis | + + | Status post lumbar spinal fusion Arthrodesis status | + + documented in this encounter"
--- OUTSIDE RECORDS SUMMARY | ~2019-09-18 | XMS | Encounter Summary ---
Demographics + + + | Address | [address] | | | [place] [address] | + + + | Home Phone [...] [place] | | | | | [address] | | + + + + + [...] | | | spondylolist | | [address] | | | | | hesis | | [place], | | | | | Spinal | | [place] [address] | | | | | stenosis, | | Phone: | | | | | lumbar | | [phone] | | | | | region, | | Fax: | | | | | without | | [phone] | | | | | neurogenic | [...] | | | | | [address] | [address] [place] | | | | | [place] | [phone] | | | | | [address] | | | | | | [phone] | | | +--------+ + + + [...] Easy mask AW. DL times one with [facility] easy view | | | 2 | Intubation | | | | 2 | | | | | 6 | | | +----+---+ + + | | 1 | AN Bite | | | | 2 | Block | | | | 2 | | | | | 7 | | | +----+---+ + + | | 1 | [place] | | | | 2 | 43-degrees | | | | 3 | | | | | 1 | | | +----+---+ + + | | 1 | [place] off | | | | 4 | [...] | | | | | [place], [place] | | | | | | [phone] | | | | | | | [...]
--- OUTSIDE RECORDS SUMMARY | ~2019-09-18 | XMS | Encounter Summary ---
Demographics + + + | Address | [address] | | | [place] [address] | + + + | Home Phone [...] [place] | | | | | [address] | | + + + + + Care Team Providers + +------+ + | Care E Learning Developer Name | Role | Phone | [...] [address] | [address] [place], [place] | Anxiety; Anemia; | | | | [place] | [address] | Irregular heartbeat; | | | | [address] | | Depression; | | | | [phone] | | Migraine; | | | | [...] | | | [facility] | | | | | | [address] | | | | | | | [...]
--- OUTSIDE RECORDS SUMMARY | ~2019-09-18 | XMS | Encounter Summary ---
Demographics + + + | Address | [address] | | | [place] [address] | + + + | Home Phone [...] [place], [place] | | | | | [address] | | + + + + + Care Team Providers + +------+ + | Care Multi Care Technician Name | Role | Phone | + +------+ + PCP | Unavailable | + +------+ + Encounter Details +--------+ + + + + | Date | Type | Department | Care Team | Description | +--------+ + + + + | 02/28/ | Hospital | [facility] | Deon Gonzales | | | 2011 | Encounter | MED CTR SLEEP | MD [place] | | | | | [place] [address] | [address] [place] | | | | | [place], [place] | [place] [address] | | | | | [address] | [phone] | | | | | [phone] | | | +--------+ + + + [...] [place] | | | | | | [address] | | | | | | | | +--------+---------+ + + + documented as of this encounter Visit Diagnoses Not on filedocumented in this encounter"
--- OUTSIDE RECORDS SUMMARY | ~2019-09-18 | XMS | Encounter Summary ---
Demographics + + + | Address | [address] | | | [place] [address] | + + + | Home Phone [...] [place] | | | | | [address] | | + + + + + Care Team Providers + +------+ + | Care Sandblaster Supervisor Name | Role | Phone | + +------+ + | Natalee Andersen NP | PCP | | + +------+ + Encounter Details +--------+ + + + + | Date | Type | Department | Care Team | Description | +--------+ + + + + | 07/06/ | Hospital | [facility] | Latricia Feliciano | | | 2014 | Encounter | MED CTR ACUTE | D, PT [address] | | | | | PHYSICAL THERAPY | [place] | | | | | [address] | [address] | | | | | [place] [address] | | | | | | [phone] | | | +--------+ + + + [...] + + + +---------+ + + | Kirwin-3 Fatty | Take 1,000 mg by | [...] | | | | | [place] | | | | | | [address] | | | | | | | | +--------+---------+ + + + documented as of this encounter Visit Diagnoses Not on filedocumented in this encounter"
--- OUTSIDE RECORDS SUMMARY | ~2019-09-18 | XMS | Encounter Summary ---
Demographics + + + | Address | [address] | | | [place] [address] | + + + | Home Phone [...] [place], [place] | | | | | [address] | | + + + + + Care Team Providers + +------+ + | Care Metal Hanging Supervisor Name | Role | Phone | + +------+ + PCP | Unavailable | + +------+ + Encounter Details +--------+ + + + + | Date | Type | Department | Care Team | Description | +--------+ + + + + | 06/19/ | Hospital | [facility] | | | | 1991 - | Encounter | MED CTR GENERIC PSY | | | | | | CONV DEPT [address] | | | | 06/24/ | | [place], | | | | 1991 | | [place] [address] | | | | | | [phone] | | | +--------+ + + + [...] [place] | | | | | | [address] | | | | | | | | +--------+---------+ + + + documented as of this encounter Visit Diagnoses Not on filedocumented in this encounter"
--- OUTSIDE RECORDS SUMMARY | ~2019-09-18 | XMS | Encounter Summary ---
Demographics + + + | Address | [address] | | | [place] [address] | + + + | Home Phone [...] [place] | | | | | [address] | | + + + + + Care Team Providers + +------+ + | Care Assistant Inventory Manager Name | Role | Phone | [...] + + | 08/16/ | Documentati | [facility] | Katharine Moncada, | Other (urgent | | 2019 | on | CARDIOLOGY [place] | Technologist | report) | | | | [address] | | | | | | [place] | | | | | | [address] | | | | | | [phone] | | | +--------+ + + + [...] [place] | | | | | | [address] | | | | | | | | +--------+---------+ + + + documented as of this encounter Visit Diagnoses Not on filedocumented in this encounter"
--- OUTSIDE RECORDS SUMMARY | ~2019-09-18 | XMS | Encounter Summary ---
Demographics + + + | Address | [address] | | | [place] [address] | + + + | Home Phone [...] [place] | | | | | [address] | | + + + + + Care Team Providers + +------+ + | Care Event Av Operator Name | Role | Phone | [...] [address] | [address] [place], [place] | | | | | [place], [place] | [id number] | | | | | [address] | | | | | | [phone] | | | +--------+ + + + [...] | | | | | [place] | | | | | | [address] | | | | | | | | +--------+---------+ + + + documented as of this encounter Visit Diagnoses Not on filedocumented in this encounter"
--- OUTSIDE RECORDS SUMMARY | ~2019-09-18 | XMS | Encounter Summary ---
Demographics + + + | Address | [address] | | | [place] [address] | + + + | Home Phone [...] [place] | | | | | [address] | | + + + + + Care Team Providers + +------+ + | Care Display Decorator Name | Role | Phone | + +------+ + | Basim Bolanos MD | PCP | | + +------+ + Encounter Details +--------+ + + + + | Date | Type | Department | Care Team | Description | +--------+ + + + + | 01/24/ | Abstract | [facility] [place] | [facility], | | | 2012 | | GASTROENTEROLOGY | FORTUNATO Thomas [address] | | | | | [address] | [place], [address] | | | | | [address] [place], [place] | [place], [place] | | | | | [address] | [address] | | | | | [phone] | | | +--------+ + + + [...] [place] | | | | | | [address] | | | | | | | | +--------+---------+ + + + documented as of this encounter Visit Diagnoses Not on filedocumented in this encounter"
--- OUTSIDE RECORDS SUMMARY | ~2019-09-18 | XMS | Encounter Summary ---
Demographics + + + | Address | [address] | | | [place] [address] | + + + | Home Phone [...] [place] | | | | | [address] | | + + + + + Care Team Providers + +------+ + | Care Milling Machine Set Up Operator Name | Role | Phone | + +------+ + | Natalee Andersen NP | PCP | | + +------+ + Encounter Details +--------+ + + + + | Date | Type | Department | Care Team | Description | +--------+ + + + + | 06/26/ | Hospital | [facility] | Heather Cordero PT | | | 2014 | Encounter | MED CTR ACUTE | [address] | | | | | PHYSICAL THERAPY | [place] | | | | | [address] [place] | [address] | | | | | [place] [address] | | | | | | [phone] | | | +--------+ + + + [...] [place] | | | | | | [address] | | | | | | | | +--------+---------+ + + + documented as of this encounter Visit Diagnoses Not on filedocumented in this encounter"
--- OUTSIDE RECORDS SUMMARY | ~2019-09-18 | XMS | Encounter Summary ---
Demographics + + + | Address | [address] | | | [place] [address] | + + + | Home Phone [...] [place] | | | | | [address] | | + + + + + Care Team Providers + +------+ + | Care Stocking Inspector Name | Role | Phone | [...] [place] | | | | | | [address] | | | | | | [phone] | | | +--------+ + + + [...] [place] | | | | | | [address] | | | | | | | | +--------+---------+ + + + documented as of this encounter Visit Diagnoses Not on filedocumented in this encounter"
--- OUTSIDE RECORDS SUMMARY | ~2019-09-18 | XMS | Clinical Summary ---
Demographics + + + | Address | [address] | | | [place] [address] | + + + | Home Phone [...] [place] | | | | | [address] | | + + + + + Care Team Providers + +------+ + | Care Dial Mounter Name | Role | Phone | + +------+ + PCP | Unavailable | + +------+ + Source Comments EDWARD is fully live on both [facility] Ambulatory and [facility] InPatient.[facility] Allergies Not on File Medications Not [...] | MED[facility] | xxxxxxxxxx | 02/22/20 | [phone] | [address] | Medica | | | RE A & | | 15-Pre | 1 | [address] | re | | | B | | sent | | [place] | | | | | | | | [address] | | + +--------+ +--------+ + +--------+ + +--------+ +--------+ + + | Guarantor Name | Accoun | Relation to | Date | Phone | Billing Address | | | t Type | Patient | of | | | | | | | | | | + +--------+ +--------+ + + | CINDY ARNDT | Person | Self | [birth year] | [address] | | al/Fam | | 1955 | [phone] | [address] [place] | | | [place] | | | 5 (Home) | [address] | + +--------+ +--------+ + +"
--- OUTSIDE RECORDS SUMMARY | ~2019-09-18 | XMS | Encounter Summary ---
Demographics + + + | Address | [address] | | | [place] [address] | + + + | Home Phone [...] [place] | | | | | [address] | | + + + + + Care Team Providers + +------+ + | Care Decal Transferrer Name | Role | Phone | + [...] + | 12/03/ | Refill | [facility] | Frandy Teresa, | Medication Refill | | 2014 | | NEUROSURGERY [address] | DO [address] | | | | | [address] | [address] [place], [place] | | | | | [place], [place] | [phone] | | | | | [address] | | | | | | [phone] | | | +--------+--------+ + + + [...] | | | | | [place] | | | | | | [address] | | | | | | | | +--------+---------+ + + + documented as of this encounter Visit Diagnoses Not on filedocumented in this encounter"
--- OUTSIDE RECORDS SUMMARY | ~2019-09-18 | XMS | Encounter Summary ---
Demographics + + + | Address | [address] | | | [place] [address] | + + + | Home Phone [...] [place] | | | | | [address] | | + + + + + Care Team Providers + +------+ + | Care Hearth Feeder Name | Role | Phone | [...] + + | 07/06/ | Emergency | [facility] | Yunior [place], | Chest pain, | | 2014 | | MED CTR EMERGENCY | MD [address] | unspecified chest | | | | CENTER [address] | [place], [place] | pain type (Primary | | | | [place], [place] | [address] | Dx) | | | | [address] | | | | | | [phone] | | | +--------+ + + + [...] sent through Care Everywhere.CHEST PAIN, NON CARDIAC (LAO)documented in this encounter Medications at Time of [...] 0 | | | | (VITAMIN D-3) [address] | mouth Once a week. | | [...] | | | | | | | ([facility]) | | | | | | [...] + + + +---------+ + + | [place]-3 Fatty | Take 1,000 mg by | [...] [place] | | | | | | [address] | | | | | | | [...] [address] | [place] | [phone] | | [facility] | | [address] | | | - LABORATORY | | [...] [address] | [place] | [phone] | | [facility] | | [address] | | | - LABORATORY | | [...] | | | | | | [employer] | | | | | [...] + + | Performing | Address | City/[facility] | Phone Number | | Organization | | | | + + + + + | [facility] | [address] | [place] | [phone] | | [facility] | | [address] | | | - LABORATORY | | [...] mL/min/1.73m2 | [facility] | | | [place] | RATE,ESTIMATED | | MEDICAL | | | | mL/min/1.71j6Adra than | | CENTER - | | [...] + | [facility] | [address] | [place] | [phone] | | [facility] | | [address] | | | - LABORATORY | | [...] [address] | [place] | [phone] | | [facility] | | [address] | | | - LABORATORY | | [...] | | | | MD NAZARIO JON ([id number]) | | | | | | on [...]
--- OUTSIDE RECORDS SUMMARY | ~2019-09-18 | XMS | Encounter Summary ---
Demographics + + + | Address | [address] | | | [place] [address] | + + + | Home Phone [...] [place] | | | | | [address] | | + + + + + Care Team Providers + +------+ + | Care Automatic Lehr Operator Name | Role | Phone | [...] + | 03/07/ | Telephone | [facility] | Katharine Cardona PA-C | Results | | 2014 | | [facility] | [address] | | | | | [address] | [place] [address] | | | | | [place], [place] | [phone] | | | | | [address] | | | | | | [phone] | | | +--------+ + + + [...] [place] | | | | | | [address] | | | | | | | | +--------+---------+ + + + documented as of this encounter Visit Diagnoses Not on filedocumented in this encounter"
--- OUTSIDE RECORDS SUMMARY | ~2019-09-18 | XMS | Encounter Summary ---
Demographics + + + | Address | [address] | | | [place] [address] | + + + | Home Phone [...] [place], [place] | | | | | [address] | | + + + + + Care Team Providers + +------+ + | Care Rn Wound Name | Role | Phone | + +------+ + PCP | Unavailable | + +------+ + Encounter Details +--------+ + + + + | Date | Type | Department | Care Team | Description | +--------+ + + + + | 03/26/ | Hospital | [facility] | | | | 2001 | Encounter | MED CTR LABORATORY | | | | | | [address] | | | | | | [place] | | | | | | [address] | | | | | | [phone] | | | +--------+ + + + [...] | | | | [place] | | | | | | [address] | | | | | | | | +--------+---------+ + + + documented as of this encounter Visit Diagnoses Not on filedocumented in this encounter"
--- OUTSIDE RECORDS SUMMARY | ~2019-09-18 | XMS | Encounter Summary ---
Demographics + + + | Address | [address] | | | [place] [address] | + + + | Home Phone | | + + + | Preferred Language | Unknown | + + + | Marital Status | Single | + + + | Nondenominational Affiliation | Unknown | + + + | Race | White | + + + | Ethnic Group | Not or | + + + Author + + + | Author | [facility] | + + + | Organization | [facility] | + + + | Address | Unknown | + + + | Phone | Unavailable | + + + Support + + + + + | Name | Relationship | Address | Phone | + + + + + | Kelsy Bautitsa | ECON | [address] | | | | | [place] | | | | | [address] | | + + + + + Care Team Providers + +------+ + | Care Wholesale Representative Name | Role | Phone | [...] | | | | | | [place] | | | | | | [place] [address] | | | | | | [phone] | | | +--------+ + + + [...]
--- OUTSIDE RECORDS SUMMARY | ~2019-09-18 | XMS | Encounter Summary ---
Demographics + + + | Address | [address] | | | [place] [address] | + + + | Home Phone | | + + + | Preferred Language | Unknown | + + + | Marital Status | Single | + + + | Mormon Affiliation | Unknown | + + + [...] [place] | | | | | [address] | | + + + + + Care Team Providers + +------+ + | Care Hyster Machine Operator Name | Role | Phone [...] | Transcriptions | + + | Interface, Advertising Dispatch Clerk In - 11/04/2006 3:03 AM PST | | [address] | | [place], [place] [address] [facility] [...] skin retractor was put in place. The [place]illiards elevators wereused to separate the | | [...]
--- OUTSIDE RECORDS SUMMARY | ~2019-09-18 | XMS | Encounter Summary ---
Demographics + + + | Address | [address] | | | [place] [address] | + + + | Home Phone [...] [place] | | | | | [address] | | + + + + + Care Team Providers + +------+ + | Care Housekeeping Coordinator Name | Role | Phone | [...] + + | 07/01/ | Telephone | [facility] | Frandy Teresa, | Other (Surgery ) | | 2013 | | NEUROSURGERY [address] | DO [address] | | | | | [address] [address] | [address] [place], [place] | | | | | [place], [place] | [address] | | | | | [address] | | | | | | [phone] | | | +--------+ + + + [...] [place] | | | | | | [address] | | | | | | | | +--------+---------+ + + + documented as of this encounter Visit Diagnoses Not on filedocumented in this encounter"
--- OUTSIDE RECORDS SUMMARY | ~2019-09-18 | XMS | Encounter Summary ---
Demographics + + + | Address | [address] | | | [place] [address] | + + + | Home Phone [...] [facility] | | | and [place] | + + + | Address | Unknown | + + + | Phone | Unavailable | + + + Support + + + + + | Name | Relationship | Address | Phone | + + + + + | Araceli Sibley | ECON | [place] | | | | | [address] | | + + + + + Care Team Providers + +------+ + | Care Weatherization Technician Name | Role | Phone | [...] | SLEEP DISORDER [address] | [address] | | | | | [address] [place] | [place], [place] | | | | | [place] [address] | [address] | | | | | [phone] | | | +--------+ + + + [...] | | | | | [place] | | | | | | [address] | | | | | | | | +--------+---------+ + + + documented as of this encounter Visit Diagnoses Not on filedocumented in this encounter"
--- OUTSIDE RECORDS SUMMARY | ~2019-09-18 | XMS | Encounter Summary ---
Demographics + + + | Address | [address] | | | [place] [address] | + + + | Home Phone [...] [place] | | | | | [address] | | + + + + + Care Team Providers + +------+ + | Care Warehouse Sorter Name | Role | Phone | [...] sleep apnea) | | | | [address] [place] | [address] [place] | (Primary Dx); | | | | [place] [address] | [place] [address] | Sleepiness | | | | [phone] | [phone] | | | | | | | [...] differen t from the original. 03/06/13 [address] [place] Sleepiness Scale Sitting and reading 3 Watching [...] by mouth Daily., Disp: , Rfl: ; [place]-3 Fatty Acids (FISH OIL CONCENTRATE) 1000 MG [...] | | | | | [place] | | | | | | [id number] | | | | | | | | +--------+---------+ + + + documented as of this encounter Visit Diagnoses + + | Diagnosis | + + | ROGERS (obstructive sleep apnea) - Primary Obstructive sleep apnea (adult) (pediatric) | + + | Sleepiness Other alteration of consciousness | + + documented in this encounter"
--- OUTSIDE RECORDS SUMMARY | ~2019-09-18 | XMS | Encounter Summary ---
Demographics + + + | Address | [address] | | | [place] [address] | + + + | Home Phone [...] [place] | | | | | [address] | | + + + + + Care Team Providers + +------+ + | Care Mix Crusher Operator Name | Role | Phone [...] [place] | | | | | | [address] | | | | | | [phone] | | | +--------+ + + + [...] [place] | | | | | | [address] | | | | | | | | +--------+---------+ + + + documented as of this encounter Visit Diagnoses Not on filedocumented in this encounter"
--- OUTSIDE RECORDS SUMMARY | ~2019-09-18 | XMS | Encounter Summary ---
Demographics + + + | Address | [address] | | | [place] [address] | + + + | Home Phone [...] [place], [place] | | | | | [address] | | + + + + + Care Team Providers + +------+ + | Care Wood Heel Fitter Machine Name | Role | Phone | + +------+ + PCP | Unavailable | + +------+ + Encounter Details +--------+ + + + + | Date | Type | Department | Care Team | Description | +--------+ + + + + | 01/26/ | Hospital | [facility] | Dale, Heath E A, | | | 2012 | Encounter | MED CTR XRAY [address] | MD [address] | | | | | [address] [place] | [place] | | | | | [place] [address] | [address] | | | | | [phone] | | | +--------+ + + + [...] [place] | | | | | | [address] | | | | | | | [...] | + + + | [facility] Diagnostic Imaging Department | [facility] | | [address] [facility] [facility] [address] [address] [facility] | [facility] | | BILATERAL KNEES, [...] Transcribed | | | Date/Time: 01/27/2012 17:18 Paid Search Specialist: | | | <Electronically Signed by Willie Perry MD> 01/27/12 9784 | | + + + + + | Procedure Note | + + | Juan, Rad Conversion - 11/30/2013 5:03 PM [facility] | | Diagnostic Imaging Department [address] [place] [address] | | BILATERAL KNEES, THREE VIEWS: 01/27/2012 [...] 17:12 | |Transcribed Date/Time: 01/27/2012 17:18 | |Paid Search Specialist: | |<Electronically Signed by Willie Perry MD> 01/27/12 659 | + + + +---------+ + + [...]
--- OUTSIDE RECORDS SUMMARY | ~2019-09-18 | XMS | Encounter Summary ---
Demographics + + + | Address | [address] | | | [place] [address] | + + + | Home Phone [...] [place] | | | | | [address] | | + + + + + Care Team Providers + +------+ + | Care Health Education Coordinator Name | Role | Phone | + +------+ + | Natalee Andersen NP | PCP | | + +------+ + Encounter Details +--------+ + + + + | Date | Type | Department | Care Team | Description | +--------+ + + + + | 06/25/ | Hospital | [facility] | Latricia Feliciano | | | 2014 | Encounter | MED CTR ACUTE | [address], [address] | | | | | PHYSICAL THERAPY | [place] | | | | | [address] | [address] | | | | | [place] [address] | | | | | | [phone] | | | +--------+ + + + [...] + + + +---------+ + + | Smoot-3 Fatty | Take 1,000 mg by | [...] [place] | | | | | | [address] | | | | | | | | +--------+---------+ + + + documented as of this encounter Visit Diagnoses Not on filedocumented in this encounter"
--- OUTSIDE RECORDS SUMMARY | ~2019-09-18 | XMS | Encounter Summary ---
Demographics + + + | Address | [address] | | | [place] [address] | + + + | Home Phone [...] [place] | | | | | [address] | | + + + + + Care Team Providers + +------+ + | Care Greenskeeper Name | Role | Phone | + [...] Closed | | Radiology | Diagnoses | [place], | | | | | | Thoracic or | Natalee L, | | | | | | lumbosacral | EKG TECH [address] | | | | | | neuritis or | [address] [place] | | | | | | | [address] | | | | | | radiculitis, | [place], | | | | | | unspecified | [place] [address] | | | | | | | Phone: | | | | | | Degeneration | [phone] | | | | | | of lumbar | Fax: | | | | | | or | [phone] | | | | | | lumbosacral [...] + + | 03/11/ | Hospital | [facility] | Natalee Andersen | Thoracic or | | 2013 | Encounter | MED CTR MRI [address] | L, EKG TECH [address] | lumbosacral neuritis | | | | [place], | [address] [place] [address] | or radiculitis, | | | | [place] [address] | [place] [address] | unspecified; | | | | [phone] | [phone] | Degeneration of | | | | [...] + + + +---------+ + + | Artemas-3 Fatty | Take 1,000 mg by | [...] [place] | | | | | | [address] | | | | | | | [...] + | MISCELLANEOUS LAB | | | [phone] | + +---------+ + + | MISCELANIOUS LAB | | | [phone] | + +---------+ + + documented in this encounter Visit Diagnoses + + | Diagnosis | + + | Thoracic or lumbosacral neuritis or radiculitis, unspecified | + + | Degeneration of lumbar or lumbosacral intervertebral disc | + + documented in this encounter"
--- OUTSIDE RECORDS SUMMARY | ~2019-09-18 | XMS | Encounter Summary ---
Demographics + + + | Address | [address] | | | [place] [address] | + + + | Home Phone [...] [place] | | | | | [address] | | + + + + + [...] + + | 08/22/ | Documentati | [facility] | Katharine Moncada, | Other (urgent | | 2019 | on | CARDIOLOGY [place] | Technologist | report) | | | | [address] | | | | | | [place] | | | | | | [address] | | | | | | [phone] | | | +--------+ + + + [...] [place] | | | | | | [address] | | | | | | | | +--------+---------+ + + + documented as of this encounter Visit Diagnoses Not on filedocumented in this encounter"
--- OUTSIDE RECORDS SUMMARY | ~2019-09-18 | XMS | Encounter Summary ---
Demographics + + + | Address | [address] | | | [place] [address] | + + + | Home Phone [...] [place], [place] | | | | | [address] | | + + + + + Care Team Providers + +------+ + | Care Fulfillment Coordinator Name | Role | Phone | + +------+ + PCP | Unavailable | + +------+ + Encounter Details +--------+ + + + + | Date | Type | Department | Care Team | Description | +--------+ + + + + | 06/07/ | Hospital | [facility] | | | | 1991 - | Encounter | MED CTR GENERIC OP | | | | | | CONV DEPT [address] | | | | 10/07/ | | [place], | | | | 1991 | | [place] [address] | | | | | | [phone] | | | +--------+ + + + [...] [place] | | | | | | [address] | | | | | | | | +--------+---------+ + + + documented as of this encounter Visit Diagnoses Not on filedocumented in this encounter"
--- OUTSIDE RECORDS SUMMARY | ~2019-09-18 | XMS | Encounter Summary ---
Demographics + + + | Address | [address] | | | [place] [address] | + + + | Home Phone [...] [place], [place] | | | | | [address] | | + + + + + Care Team Providers + +------+ + | Care Hardware Developer Name | Role | Phone | + +------+ + PCP | Unavailable | + +------+ + Encounter Details +--------+ + + + + | Date | Type | Department | Care Team | Description | +--------+ + + + + | 05/29/ | Hospital | [facility] | | | | 1991 | Encounter | MED CTR LABORATORY | | | | | | [address] | | | | | | [place] | | | | | | [address] | | | | | | [phone] | | | +--------+ + + + [...] | | | | | [place] | | | | | | [address] | | | | | | | | +--------+---------+ + + + documented as of this encounter Visit Diagnoses Not on filedocumented in this encounter"
--- OUTSIDE RECORDS SUMMARY | ~2019-09-18 | XMS | Encounter Summary ---
Demographics + + + | Address | [address] | | | [place] [address] | + + + | Home Phone [...] [place], [place] | | | | | [address] | | + + + + + Care Team Providers + +------+ + | Care Chemical Analytical Sampler Name | Role | Phone | + +------+ + PCP | Unavailable | + +------+ + Encounter Details +--------+ + + + + | Date | Type | Department | Care Team | Description | +--------+ + + + + | 09/24/ | Hospital | [facility] | | | | 1993 | Encounter | MED CTR LABORATORY | | | | | | [address] | | | | | | [place] | | | | | | [address] | | | | | | [phone] | | | +--------+ + + + [...] | | | | | [place] | | | | | | [address] | | | | | | | | +--------+---------+ + + + documented as of this encounter Visit Diagnoses Not on filedocumented in this encounter"
--- OUTSIDE RECORDS SUMMARY | ~2019-09-18 | XMS | Encounter Summary ---
Demographics + + + | Address | [address] | | | [place] [address] | + + + | Home Phone [...] [place], [place] | | | | | [address] | | + + + + + Care Team Providers + +------+ + | Care Painting Manager Name | Role | Phone | + +------+ + PCP | Unavailable | + +------+ + Encounter Details +--------+ + + + + | Date | Type | Department | Care Team | Description | +--------+ + + + + | 02/24/ | Hospital | [facility] | | | | 1997 | Encounter | MED CTR EMERGENCY | | | | | | [address] | | | | | | [place] | | | | | | [address] | | | | | | [phone] | | | +--------+ + + + [...] | | | | | [place] | | | | | | [address] | | | | | | | | +--------+---------+ + + + documented as of this encounter Visit Diagnoses Not on filedocumented in this encounter"
--- OUTSIDE RECORDS SUMMARY | ~2019-09-18 | XMS | Encounter Summary ---
Demographics + + + | Address | [address] | | | [place] [address] | + + + | Home Phone [...] [place] | | | | | [address] | | + + + + + [...] + + | 07/10/ | Telephone | [facility] | Frandy Teresa, | Imaging Only (1 year | | 2014 | | NEUROSURGERY [address] | DO [address] | x-ray ) | | | | [address] | [address] [place], [place] | | | | | [place], [place] | [id number] | | | | | [address] | | | | | | [phone] | | | +--------+ + + + [...] [place] | | | | | | [address] | | | | | | | | +--------+---------+ + + + documented as of this encounter Visit Diagnoses Not on filedocumented in this encounter"
--- OUTSIDE RECORDS SUMMARY | ~2019-09-18 | XMS | Encounter Summary ---
Demographics + + + | Address | [address] | | | [place] [address] | + + + | Home Phone [...] [place], [place] | | | | | [address] | | + + + + + Care Team Providers + +------+ + | Care Elevator Operator Name | Role | Phone | + +------+ + PCP | Unavailable | + +------+ + Encounter Details +--------+ + + + + | Date | Type | Department | Care Team | Description | +--------+ + + + + | 06/23/ | Hospital | [facility] | | | | 2000 | Encounter | MED CTR GENERIC OP | | | | | | CONV DEPT [address] | | | | | | [place], | | | | | | [place] [address] | | | | | | [phone] | | | +--------+ + + + [...] | | | | | [place] | | | | | | [address] | | | | | | | | +--------+---------+ + + + documented as of this encounter Visit Diagnoses Not on filedocumented in this encounter"
--- OUTSIDE RECORDS SUMMARY | ~2019-09-18 | XMS | Encounter Summary ---
Demographics + + + | Address | [address] | | | [place] [address] | + + + | Home Phone [...] [place], [place] | | | | | [address] | | + + + + + Care Team Providers + +------+ + | Care Marketing Support Assistant Name | Role | Phone | + +------+ + PCP | Unavailable | + +------+ + Encounter Details +--------+ + + + + | Date | Type | Department | Care Team | Description | +--------+ + + + + | 02/02/ | Hospital | [facility] | Serafin Bautista | | | 2012 | Encounter | MED CTR XRAY [address] | T, MD [address] | | | | | [place] | ST [place], [place] | | | | | [place] [address] | [address] | | | | | [phone] | | | +--------+ + + + [...] [place] | | | | | | [address] | | | | | | | [...] Performed At | + + + | [facility] Diagnostic Imaging Department | [facility] | | [address] | [facility] | | PROCEDURE: EPIDURAL [...] Transcribed Date/Time: | | | 02/03/2012 18:45 Floor Associate: <Electronically Signed | | | by Serafin Bautista MD> 02/14/12 0916 | | + + + + + | Procedure Note | + + | Juan, Rad Conversion - 11/30/2013 5:06 PM [facility] | | Diagnostic Imaging Department | [...] | Transcribed Date/Time: 02/03/2012 18:45 | | Floor Associate: LaMAHIN | | <Electronically Signed by Serafin [...]
--- OUTSIDE RECORDS SUMMARY | ~2019-09-18 | XMS | Encounter Summary ---
Demographics + + + | Address | [address] | | | [place] [address] | + + + | Home Phone [...] [place], [place] | | | | | [address] | | + + + + + Care Team Providers + +------+ + | Care Surgical Instrument Repair Specialist Name | Role | Phone | + +------+ + PCP | Unavailable | + +------+ + Encounter Details +--------+ + + + + | Date | Type | Department | Care Team | Description | +--------+ + + + + | 06/19/ | Hospital | [facility] | | | | 1991 - | Encounter | MED CTR GENERIC PSY | | | | | | CONV DEPT [address] | | | | 06/24/ | | [place], | | | | 1991 | | [place] [address] | | | | | | [phone] | | | +--------+ + + + [...] [place] | | | | | | [address] | | | | | | | | +--------+---------+ + + + documented as of this encounter Visit Diagnoses Not on filedocumented in this encounter"
--- OUTSIDE RECORDS SUMMARY | ~2019-09-18 | XMS | Encounter Summary ---
Demographics + + + | Address | [address] | | | [place] [address] | + + + | Home Phone [...] [place] | | | | | [address] | | + + + + + Care Team Providers + +------+ + | Care Seasonal Tax Preparer Name | Role | Phone | + +------+ + | Natalee Andersen NP | PCP | | + +------+ + Encounter Details +--------+ + + + + | Date | Type | Department | Care Team | Description | +--------+ + + + + | 06/26/ | Hospital | [facility] | Heather Cordero PT | | | 2014 | Encounter | MED CTR ACUTE | [address] | | | | | PHYSICAL THERAPY | [place] | | | | | [address] [place] | [address] | | | | | [place] [address] | | | | | | [phone] | | | +--------+ + + + [...] + + + +---------+ + + | [place]-3 Fatty | Take 1,000 mg by | [...] [place] | | | | | | [address] | | | | | | | | +--------+---------+ + + + documented as of this encounter Visit Diagnoses Not on filedocumented in this encounter"
--- OUTSIDE RECORDS SUMMARY | ~2019-09-18 | XMS | Encounter Summary ---
Demographics + + + | Address | [address] | | | [place] [address] | + + + | Home Phone [...] [place], [place] | | | | | [address] | | + + + + + Care Team Providers + +------+ + | Care Director International Name | Role | Phone | + +------+ + PCP | Unavailable | + +------+ + Encounter Details +--------+ + + + + | Date | Type | Department | Care Team | Description | +--------+ + + + + | 07/23/ | Hospital | [facility] | | | | 1992 - | Encounter | MED CTR GENERIC PSY | | | | | | CONV DEPT [address] | | | | 07/28/ | | [place], | | | | 1992 | | [place] [address] | | | | | | [phone] | | | +--------+ + + + [...] [place] | | | | | | [address] | | | | | | | | +--------+---------+ + + + documented as of this encounter Visit Diagnoses Not on filedocumented in this encounter"
--- OUTSIDE RECORDS SUMMARY | ~2019-09-18 | XMS | Encounter Summary ---
Demographics + + + | Address | [address] | | | [place] [address] | + + + | Home Phone [...] [place] | | | | | [address] | | + + + + + Care Team Providers + +------+ + | Care Multi Line Claims Adjuster Name | Role | Phone | [...] [place] | | | | | | [address] | | | | | | [phone] | | | +--------+ + + + [...] [place] | | | | | | [address] | | | | | | | | +--------+---------+ + + + documented as of this encounter Visit Diagnoses Not on filedocumented in this encounter"
--- OUTSIDE RECORDS SUMMARY | ~2019-09-18 | XMS | Encounter Summary ---
Demographics + + + | Address | [address] | | | [place] [address] | + + + | Home Phone [...] [place] | | | | | [address] | | + + + + + Care Team Providers + +------+ + | Care Vessel Specialist Name | Role | Phone | [...] | | [address] | [place] [address] | | | | | [place], [place] | [phone] | | | | | [address] | | | | | | [phone] | | | +--------+ + + + [...] | | | | | | [facility] | | | | | | [address] | | | | | | | | +--------+---------+ + + + documented as of this encounter Visit Diagnoses Not on filedocumented in this encounter"
--- OUTSIDE RECORDS SUMMARY | ~2019-09-18 | XMS | Encounter Summary ---
Demographics + + + | Address | [address] | | | [place] [address] | + + + | Home Phone [...] [place], [place] | | | | | [address] | | + + + + + Care Team Providers + +------+ + | Care Investigative Research Specialist Name | Role | Phone | [...] Location | | | | | | [phone] | | | +--------+ + + + [...] [place] | | | | | | [address] | | | | | | | | +--------+---------+ + + + documented as of this encounter Visit Diagnoses Not on filedocumented in this encounter"
--- OUTSIDE RECORDS SUMMARY | ~2019-09-18 | XMS | Encounter Summary ---
Demographics + + + | Address | [address] | | | [place] [address] | + + + | Home Phone [...] [place] | | | | | [address] | | + + + + + Care Team Providers + +------+ + | Care Account Services Associate Name | Role | Phone | [...] + | 02/27/ | Telephone | [facility] | Katharine Cardona PA-C | Appointment (New | | 2014 | | MEDICINE [address] | [address] | Patient) | | | | [address] [place] | [place] [address] | | | | | [place] [address] | [phone] | | | | | [phone] | | | +--------+ + + + [...] [place] | | | | | | [address] | | | | | | | | +--------+---------+ + + + documented as of this encounter Visit Diagnoses Not on filedocumented in this encounter"
--- OUTSIDE RECORDS SUMMARY | ~2019-09-18 | XMS | Encounter Summary ---
Demographics + + + | Address | [address] | | | [place] [address] | + + + | Home Phone [...] [place] | | | | | [address] | | + + + + + Care Team Providers + +------+ + | Care Registered Massage Therapist Name | Role | Phone | [...] + | 07/15/ | Telephone | [facility] | Russell Alfaro PA | Other | | 2016 | | SLEEP DISORDER [address] | [address] | | | | | [address] [place] | [place] [facility] [place] | | | | | [place] [address] | [address] | | | | | [phone] | | | +--------+ + + + [...] [place] | | | | | | [address] | | | | | | | | +--------+---------+ + + + documented as of this encounter Visit Diagnoses Not on filedocumented in this encounter"
--- OUTSIDE RECORDS SUMMARY | ~2019-09-18 | XMS | Encounter Summary ---
Demographics + + + | Address | [address] | | | [place] [address] | + + + | Home Phone [...] [place], [place] | | | | | [address] | | + + + + + Care Team Providers + +------+ + | Care Elevator Repairer Helper Name | Role | Phone | + +------+ + PCP | Unavailable | + +------+ + Encounter Details +--------+ + + + + | Date | Type | Department | Care Team | Description | +--------+ + + + + | 09/23/ | Hospital | [facility] | | | | 1994 | Encounter | MED CTR LABORATORY | | | | | | [address] | | | | | | [place] | | | | | | [address] | | | | | | [phone] | | | +--------+ + + + [...] | | | | | [place] | | | | | | [address] | | | | | | | | +--------+---------+ + + + documented as of this encounter Visit Diagnoses Not on filedocumented in this encounter"
--- OUTSIDE RECORDS SUMMARY | ~2019-09-18 | XMS | Encounter Summary ---
Demographics + + + | Address | [address] | | | [place] [address] | + + + | Home Phone [...] [place] | | | | | [address] | | + + + + + Care Team Providers + +------+ + | Care Embossing Clerk Name | Role | Phone | [...] | | | spondylolist | | [address] | | | | | hesis | | [place], | | | | | Spinal | | [place] [address] | | | | | stenosis, | | Phone: | | | | | lumbar | | [phone] | | | | | region, | | Fax: | | | | | without | | [phone] | | | | | neurogenic | [...] + + | 07/02/ | Hospital | [facility] | Frandy Teresa, | Spinal stenosis, | | 2013 | Encounter | MED CTR XRAY [address] | DO [address] | lumbar region, | | | | [place] | [address] [place], [place] | without neurogenic | | | | [place] [address] | [address] | claudication | | | | [phone] | | (Primary Dx) | +--------+ + [...] + + + +---------+ + + | [place]-3 Fatty | Take 1,000 mg by | [...] [place] | | | | | | [address] | | | | | | | [...]
--- OUTSIDE RECORDS SUMMARY | ~2019-09-18 | XMS | Encounter Summary ---
Demographics + + + | Address | [address] | | | [place] [address] | + + + | Home Phone [...] [place], [place] | | | | | [address] | | + + + + + Care Team Providers + +------+ + | Care Health Center Manager Name | Role | Phone | + +------+ + PCP | Unavailable | + +------+ + Encounter Details +--------+ + + + + | Date | Type | Department | Care Team | Description | +--------+ + + + + | 01/26/ | Hospital | [facility] | Dale, Heath E A, | | | 2012 | Encounter | MED CTR XRAY [address] | MD [address] | | | | | [place] | [place] | | | | | [place] [address] | [address] | | | | | [phone] | | | +--------+ + + + [...] [place] | | | | | | [address] | | | | | | | [...] Performed At | + + + | [facility] Diagnostic Imaging Department | [facility] | | [address] [facility] | [facility] | | BILATERAL KNEES, THREE VIEWS: [...] Transcribed | | | Date/Time: 01/27/2012 17:18 Relay Shop Tester: | | | <Electronically Signed by Willie Perry MD> 01/27/12 4384 | | + + + + + | Procedure Note | + + | Juan, Rad Conversion - 11/30/2013 5:03 PM [facility] | | Diagnostic Imaging Department [address] [place] [address] | | BILATERAL KNEES, THREE VIEWS: 01/27/2012 [...] 17:12 | |Transcribed Date/Time: 01/27/2012 17:18 | |Relay Shop Tester: | |<Electronically Signed by Willie Perry MD> 01/27/12 477 | + + + +---------+ + + [...]
--- OUTSIDE RECORDS SUMMARY | ~2019-09-18 | XMS | Encounter Summary ---
Demographics + + + | Address | [address] | | | [place] [address] | + + + | Home Phone [...] [place], [place] | | | | | [address] | | + + + + + Care Team Providers + +------+ + | Care Producer Director Name | Role | Phone | + +------+ + PCP | Unavailable | + +------+ + Encounter Details +--------+ + + + + | Date | Type | Department | Care Team | Description | +--------+ + + + + | 02/02/ | Hospital | [facility] | | | | 1997 | Encounter | MED CTR EMERGENCY | | | | | | [address] | | | | | | [place] | | | | | | [address] | | | | | | [phone] | | | +--------+ + + + [...] | | | | [place] | | | | | | [address] | | | | | | | | +--------+---------+ + + + documented as of this encounter Visit Diagnoses Not on filedocumented in this encounter"
--- OUTSIDE RECORDS SUMMARY | ~2019-09-18 | XMS | Encounter Summary ---
Demographics + + + | Address | [address] | | | [place] [address] | + + + | Home Phone [...] [place] | | | | | [address] | | + + + + + Care Team Providers + +------+ + | Care Dehydrator Tender Name | Role | Phone | + +------+ + | Natalee Andersen NP | PCP | | + +------+ + Encounter Details +--------+---------+ + + + | Date | Type | Department | Care Team | Description | +--------+---------+ + + + | 06/25/ | Surgery | [facility] | Frandy Teresa, | Canceled | | 2013 | | MED CTR OR INTRA OP | DO [address] | PROCEDURE NOT | | | | [address] | [address] [place], [place] | PERFORMED | | | | [place], [place] | [address] | | | | | [address] | | | | | | [phone] | | | +--------+---------+ + + + [...] + + + +---------+ + + | [place]-3 Fatty | Take 1,000 mg by | [...] | | | | | [place], [place] | | | | | | [id number] | | | | | | | [...] mL/min/1.73m2 | [facility] | | | [facility] | RATE,ESTIMATED | | MEDICAL | | | | mL/min/1.08g2Vtzt than | | CENTER - | | [...] + | [facility] | [address] | [place] | [phone] | | [facility] | | [address] | | | - LABORATORY | | | | + + + + + | [facility] | [address] | [place] | | | [facility] | | [address] | | | - LABORATORY | | [...] + | [facility] | [address] | [place] | [phone] | | [facility] | | [address] | | | - LABORATORY | | | | + + + + + | [facility] | [address] | [place] | | | [facility] | | [address] | | | - LABORATORY | | [...] [address] | [place] | [phone] | | [facility] | | [address] | | | - LABORATORY | | | | + + + + + | [facility] | [address] | [place], [place] | | | [facility] | | [address] | | | - LABORATORY | | [...] [facility] | | [address] | | | - BLOOD BANK | [...] | + + + + + | [facility] | [address] | [place], [place] | [phone] | | [facility] | | [address] | | | - LABORATORY | | | | + + + + + | [facility] | [address] | [place], [place] | | | [facility] | | [address] | | | - LABORATORY | | [...]
--- OUTSIDE RECORDS SUMMARY | ~2019-09-18 | XMS | Encounter Summary ---
Demographics + + + | Address | [address] | | | [place] [address] | + + + | Home Phone [...] [place] | | | | | [address] | | + + + + + Care Team Providers + +------+ + | Care Home Health Nurse Licensed Practical Name | Role | Phone | + [...] | | | | | | | [address] | | | | | | | Phone: | | | | | | | [phone] | | | | | | | Fax: | | | | | | | [phone] | | +--------+ + + + + + Reason for Visit + + + | Reason | Comments | + + + | Follow-up | 4 Week PO | + + + Encounter Details +--------+---------+ + + + | Date | Type | Department | Care Team | Description | +--------+---------+ + + + | 07/25/ | Office | [facility] | Frandy Teresa, | Lumbar spondylosis | | 2013 | Visit | NEUROSURGERY [address] | DO [address] | (Primary Dx); S/P | | | | [address] | [address] [place], [place] | lumbar fusion | | | | [place], [place] | [address] | | | | | [address] | | | | | | [phone] | | | +--------+---------+ + + + [...] [facility] [place], [address] [place], [place] [address] FAX: NEUROSURGERY SURGICAL FOLLOW-UP CHIEF COMPLAINT: Chief [...] Take 15 mg by mouth nightl y. [place]-3 Fatty Acids (FISH OIL CONCENTRATE) 1000 MG [...] [place] | | | | | | [phone] | | | | | | | [...] + | MISCELLANEOUS LAB | | | [phone] | + +---------+ + + | MISCELANIOUS LAB | | | [phone] | + +---------+ + + documented in this encounter Visit Diagnoses + + | Diagnosis | + + | Lumbar spondylosis - Primary Lumbosacral spondylosis without myelopathy | + + | S/P lumbar fusion Arthrodesis status | + + documented in this encounter
--- OUTSIDE RECORDS SUMMARY | ~2019-09-18 | XMS | Encounter Summary ---
Demographics + + + | Address | [address] | | | [place] [address] | + + + | Home Phone [...] [place], [place] | | | | | [address] | | + + + + + Care Team Providers + +------+ + | Care Rivet Spinner Name | Role | Phone | + +------+ + PCP | Unavailable | + +------+ + Encounter Details +--------+ + + + + | Date | Type | Department | Care Team | Description | +--------+ + + + + | 09/10/ | Hospital | [facility] | | | | 1992 | Encounter | MED CTR LABORATORY | | | | | | [address] | | | | | | [place] | | | | | | [address] | | | | | | [phone] | | | +--------+ + + + [...] | | | | | [place] | | | | | | [address] | | | | | | | | +--------+---------+ + + + documented as of this encounter Visit Diagnoses Not on filedocumented in this encounter"
--- OUTSIDE RECORDS SUMMARY | ~2019-09-18 | XMS | Encounter Summary ---
Demographics + + + | Address | [address] | | | [place] [address] | + + + | Home Phone [...] [place] | | | | | [address] | | + + + + + Care Team Providers + +------+ + | Care Public Policy Coordinator Name | Role | Phone | [...] + + | 08/14/ | Documentati | [facility] | Katharine Moncada, | Other (urgent | | 2019 | on | CARDIOLOGY [place] | Technologist | report) | | | | [address] | | | | | | [place] | | | | | | [address] | | | | | | [phone] | | | +--------+ + + + [...] [place] | | | | | | [address] | | | | | | | | +--------+---------+ + + + documented as of this encounter Visit Diagnoses Not on filedocumented in this encounter"
--- OUTSIDE RECORDS SUMMARY | ~2019-09-18 | XMS | Encounter Summary ---
Demographics + + + | Address | [address] | | | [place] [address] | + + + | Home Phone [...] [place], [place] | | | | | [address] | | + + + + + Care Team Providers + +------+ + | Care Peanut Sheller Name | Role | Phone | + +------+ + PCP | Unavailable | + +------+ + Encounter Details +--------+ + + + + | Date | Type | Department | Care Team | Description | +--------+ + + + + | 12/31/ | Hospital | [facility] | | | | 1996 | Encounter | MED CTR XRAY [address] | | | | | | [address] | | | | | | [place] [address] | | | | | | [phone] | | | +--------+ + + + [...] | | | | | [place] | | | | | | [address] | | | | | | | | +--------+---------+ + + + documented as of this encounter Visit Diagnoses Not on filedocumented in this encounter"
--- OUTSIDE RECORDS SUMMARY | ~2019-09-18 | XMS | Encounter Summary ---
Demographics + + + | Address | [address] | | | [place] [address] | + + + | Home Phone [...] [place] | | | | | [address] | | + + + + + Care Team Providers + +------+ + | Care C4 Planner Name | Role | Phone | [...] + | 07/19/ | Telephone | [facility] | Frandy Teresa, | Appointment | | 2013 | | NEUROSURGERY [address] | DO [address] | | | | | [address] | [address] [place], [place] | | | | | [place], [place] | [address] | | | | | [address] | | | | | | [phone] | | | +--------+ + + + [...] [place] | | | | | | [address] | | | | | | | | +--------+---------+ + + + documented as of this encounter Visit Diagnoses Not on filedocumented in this encounter"
--- OUTSIDE RECORDS SUMMARY | ~2019-09-18 | XMS | Encounter Summary ---
Demographics + + + | Address | [address] | | | [place] [address] | + + + | Home Phone [...] [place] | | | | | [address] | | + + + + + Care Team Providers + +------+ + | Care Reservation Sales Agent Name | Role | Phone | [...] + | 06/20/ | Telephone | [facility] | Frandy Teresa, | Other (surgery | | 2013 | | NEUROSURGERY [address] | DO [address] | reminder ) | | | | [address] | [address] [place], [place] | | | | | [place], [place] | [address] | | | | | [address] | | | | | | [phone] | | | +--------+ + + + [...] | | | | | [place] | | | | | | [address] | | | | | | | | +--------+---------+ + + + documented as of this encounter Visit Diagnoses Not on filedocumented in this encounter"
--- OUTSIDE RECORDS SUMMARY | ~2019-09-18 | XMS | Encounter Summary ---
Demographics + + + | Address | [address] | | | [place] [address] | + + + | Home Phone [...] [place], [place] | | | | | [address] | | + + + + + Care Team Providers + +------+ + | Care Assistant Field Hockey Coach Name | Role | Phone | + +------+ + PCP | Unavailable | + +------+ + Encounter Details +--------+ + + + + | Date | Type | Department | Care Team | Description | +--------+ + + + + | 08/21/ | Hospital | [facility] | | | | 1996 | Encounter | [facility] | | | | | | [address] | | | | | | [place] | | | | | | [address] | | | | | | [phone] | | | +--------+ + + + [...] | | | | | [place] | | | | | | [address] | | | | | | | | +--------+---------+ + + + documented as of this encounter Visit Diagnoses Not on filedocumented in this encounter"
--- OUTSIDE RECORDS SUMMARY | ~2019-09-18 | XMS | Encounter Summary ---
Demographics + + + | Address | [address] | | | [place] [address] | + + + | Home Phone [...] [place] | | | | | [address] | | + + + + + Care Team Providers + +------+ + | Care Wire Drawing Setter Name | Role | Phone | [...] [place], [place] | | | | | [place], [place] | [id number] | | | | | [address] | | | | | | [phone] | | | +--------+ + + + [...] | | | | | [place] | | | | | | [address] | | | | | | | | +--------+---------+ + + + documented as of this encounter Visit Diagnoses Not on filedocumented in this encounter"
--- OUTSIDE RECORDS SUMMARY | ~2019-09-18 | XMS | Encounter Summary ---
Demographics + + + | Address | [address] | | | [place] [address] | + + + | Home Phone [...] [place] | | | | | [address] | | + + + + + Care Team Providers + +------+ + | Care Desktop Support Technician Name | Role | Phone [...] + + | 09/10/ | Documentati | [facility] | Katharine Moncada, | Other (urgent | | 2019 | on | CARDIOLOGY [place] | Technologist | report) | | | | [address] | | | | | | [place] | | | | | | [address] | | | | | | [phone] | | | +--------+ + + + [...] [place] | | | | | | [address] | | | | | | | | +--------+---------+ + + + documented as of this encounter Visit Diagnoses Not on filedocumented in this encounter"
--- OUTSIDE RECORDS SUMMARY | ~2019-09-18 | XMS | Encounter Summary ---
Demographics + + + | Address | [address] | | | [place] [address] | + + + | Home Phone [...] [place] | | | | | [address] | | + + + + + Care Team Providers + +------+ + | Care Online Marketing Specialist Name | Role | Phone [...] | | | spondylolist | | [address] | | | | | hesis | | [place], | | | | | Spinal | | [place] [address] | | | | | stenosis, | | Phone: | | | | | lumbar | | [phone] | | | | | region, | | Fax: | | | | | without | | [phone] | | | | | neurogenic | [...] | | | | | [address] | [address] [place] | | | | | [place] | [phone] | | | | | [address] | | | | | | [phone] | | | +--------+ + + + [...] Easy mask AW. DL times one with [facility] 3 easy view | | | 2 | Intubation | | | | 2 | | | | | 6 | | | +----+---+ + + | | 1 | AN Bite | | | | 2 | Block | | | | 2 | | | | | 7 | | | +----+---+ + + | | 1 | Alton | | | | 2 | 43-degrees | | | | 3 | | | | | 1 | | | +----+---+ + + | | 1 | Alton off | | | | 4 | [...] | | | | | [place], [place] | | | | | | [phone] | | | | | | | [...]
--- OUTSIDE RECORDS SUMMARY | ~2019-09-18 | XMS | Encounter Summary ---
Demographics + + + | Address | [address] | | | [place] [address] | + + + | Home Phone [...] [place] | | | | | [address] | | + + + + + Care Team Providers + +------+ + | Care Carpenter Maintenance Name | Role | Phone | [...] Closed | | Radiology | Diagnoses | Harrell, | | | | | | Thoracic or | Natalee L, | | | | | | lumbosacral | SPECIALTY MOLDER [address] | | | | | | neuritis or | [address] [place] | | | | | | | [address] | | | | | | radiculitis, | [place], | | | | | | unspecified | [place] [address] | | | | | | | Phone: | | | | | | Degeneration | [phone] | | | | | | of lumbar | Fax: | | | | | | or | [phone] | | | | | | lumbosacral [...] [facility] | Natalee Andersen | Thoracic or | | 2013 | Encounter | MED CTR MRI [address] | L, SPECIALTY MOLDER [address] | lumbosacral neuritis | | | | [place], | [address] | or radiculitis, | | | | [place] [address] | [place] [address] | unspecified; | | | | [phone] | [phone] | Degeneration of | | | | [...] + + + +---------+ + + | [place]-3 Fatty | Take 1,000 mg by | [...] [place] | | | | | | [address] | | | | | | | [...] + | MISCELLANEOUS LAB | | | [phone] | + +---------+ + + | MISCELANIOUS LAB | | | [phone] | + +---------+ + + documented in this encounter Visit Diagnoses + + | Diagnosis | + + | Thoracic or lumbosacral neuritis or radiculitis, unspecified | + + | Degeneration of lumbar or lumbosacral intervertebral disc | + + documented in this encounter"
--- OUTSIDE RECORDS SUMMARY | ~2019-09-18 | XMS | Encounter Summary ---
Demographics + + + | Address | [address] | | | [place] [address] | + + + | Home Phone [...] [place], [place] | | | | | [address] | | + + + + + Care Team Providers + +------+ + | Care Manager Environmental Affairs Name | Role | Phone | + +------+ + PCP | Unavailable | + +------+ + Encounter Details +--------+ + + + + | Date | Type | Department | Care Team | Description | +--------+ + + + + | 02/22/ | Hospital | [facility] | | | | 1996 | Encounter | MED CTR EMERGENCY | | | | | | [address] | | | | | | [place] | | | | | | [address] | | | | | | [phone] | | | +--------+ + + + [...] | | | | [place] | | | | | | [address] | | | | | | | | +--------+---------+ + + + documented as of this encounter Visit Diagnoses Not on filedocumented in this encounter"
--- OUTSIDE RECORDS SUMMARY | ~2019-09-18 | XMS | Encounter Summary ---
Demographics + + + | Address | [address] | | | [place] [address] | + + + | Home Phone [...] [place] | | | | | [address] | | + + + + + Care Team Providers + +------+ + | Care Traffic Rate Clerk Name | Role | Phone | [...] + + | 08/30/ | Telephone | [facility] | Ashley Chávez | Other (Patient wants | | 2019 | | CARDIOLOGY [place] | Pollo, Solvent Plant Treater | to take monitor | | | | [address] | | off. ) | | | | [address] | | | | | | [place] | | | | | | [address] | | | | | | [phone] | | | +--------+ + + + [...] [place] | | | | | | [address] | | | | | | | | +--------+---------+ + + + documented as of this encounter Visit Diagnoses Not on filedocumented in this encounter"
--- OUTSIDE RECORDS SUMMARY | ~2019-09-18 | XMS | Encounter Summary ---
Demographics + + + | Address | [address] | | | [place] [address] | + + + | Home Phone [...] [place] | | | | | [address] | | + + + + + Care Team Providers + +------+ + | Care City Dispatch Supervisor Name | Role | Phone | [...] + + | 06/28/ | Telephone | [facility] | Ashley Chávez | Talia (Patient | | 2019 | | CARDIOLOGY [place] Abad, Fermentation Operator | called to cancel her | | | | [address] | | appointment) | | | | [place] | | | | | | [address] | | | | | | [phone] | | | +--------+ + + + [...] [place] | | | | | | [address] | | | | | | | | +--------+---------+ + + + documented as of this encounter Visit Diagnoses Not on filedocumented in this encounter"
--- OUTSIDE RECORDS SUMMARY | ~2019-09-18 | XMS | Encounter Summary ---
Demographics + + + | Address | [address] | | | [place] [address] | + + + | Home Phone [...] [place], [place] | | | | | [address] | | + + + + + Care Team Providers + +------+ + | Care Space Operations Name | Role | Phone | + +------+ + PCP | Unavailable | + +------+ + Encounter Details +--------+ + + + + | Date | Type | Department | Care Team | Description | +--------+ + + + + | 01/16/ | Hospital | [facility] | | | | 2002 | Encounter | MED CTR XRAY [address] | | | | | | [address] | | | | | | [place] [address] | | | | | | [phone] | | | +--------+ + + + [...] | | | | | [place] | | | | | | [address] | | | | | | | | +--------+---------+ + + + documented as of this encounter Visit Diagnoses Not on filedocumented in this encounter"
--- OUTSIDE RECORDS SUMMARY | ~2019-09-18 | XMS | Encounter Summary ---
Demographics + + + | Address | [address] | | | [place] [address] | + + + | Home Phone [...] [place] | | | | | [address] | | + + + + + Care Team Providers + +------+ + | Care Drapery Hanger Name | Role | Phone | [...] | Transcriptions | + + | Interface, Appeals Analyst In - 11/04/2006 3:03 AM PST | | [address] | | [place], [place] [address] [facility] | | ClinicsOPERATION RECORDMed [...] skin retractor was put in place. The Ellinger elevators wereused to separate the | | [...]
--- OUTSIDE RECORDS SUMMARY | ~2019-09-18 | XMS | Encounter Summary ---
Demographics + + + | Address | [address] | | | [place] [address] | + + + | Home Phone [...] [place] | | | | | [address] | | + + + + + [...] [place] | | | | | | [address] | | | | | | [phone] | | | +--------+ + + + [...] [place] | | | | | | [address] | | | | | | | | +--------+---------+ + + + documented as of this encounter Visit Diagnoses Not on filedocumented in this encounter"
--- OUTSIDE RECORDS SUMMARY | ~2019-09-18 | XMS | Encounter Summary ---
Demographics + + + | Address | [address] | | | [place] [address] | + + + | Home Phone [...] [place] | | | | | [address] | | + + + + + Care Team Providers + +------+ + | Care Drafting Clerk Name | Role | Phone | + +------+ + | Basim Bolanos MD | PCP | | + +------+ + Encounter Details +--------+ + + + + | Date | Type | Department | Care Team | Description | +--------+ + + + + | 03/30/ | Hospital | [facility] | Tyrese Neely MD | | | 2012 | Encounter | MED CTR MP INTRA OP | [address], [place] | | | | | [address] | [address] [place], [place] | | | | | [place], [place] | [address] | | | | | [address] | | | | | | [phone] | | | +--------+ + + + [...] + + + +---------+ + + | [place]-3 Fatty | Take 1,000 mg by | [...] [place] | | | | | | [address] | | | | | | | [...] + | [facility] | [address] | [place] | [phone] | | [facility] | | [address] | | | - LABORATORY | | | | + + + + + | [facility] | [address] | [place] | | | [facility] | | [address] | | | - LABORATORY | | [...] + | [facility] | [address] | [place], [place] | [phone] | | [facility] | | [address] | | | - LABORATORY | | | | + + + + + | [facility] | [address] | [place], [place] | | | [facility] | | [address] | | | - LABORATORY | | | | + + + + + documented in this encounter Visit Diagnoses Not on filedocumented in this encounter"
--- OUTSIDE RECORDS SUMMARY | ~2019-09-18 | XMS | Encounter Summary ---
Demographics + + + | Address | [address] | | | [place] [address] | + + + | Home Phone [...] [place] | | | | | [address] | | + + + + + Care Team Providers + +------+ + | Care Title Department Manager Name | Role | Phone [...] | | | | | | | [address] | | | | | | | Phone: | | | | | | | [phone] | | | | | | | Fax: | | | | | | | [phone] | | +--------+--------+ + + + + Encounter Details +--------+---------+ + + + | Date | Type | Department | Care Team | Description | +--------+---------+ + + + | 02/27/ | Office | [facility] | Baudilio Newman | Neuropathy (Primary | | 2015 | Visit | NEUROLOGY LAURIE | MD Pollo Need updated | Dx); Sleep apnea; | | | | [address] [facility], | address | Stroke (HCC); | | | | [address] [place] | | Thyroid disease | | | | [place] [address] | | | | | | [phone] | | | +--------+---------+ + + + [...] supply of blood, brain tissue quickly dies. [id number] [employer]. [address] [place] [address], [place] [address]. All righ ts reserved. This information is not intended as a substitute for professional medical care. Always follow your healthcare professional's instructions. documented in this encounter Progress Notes Baudilio Newman MD - 02/27/2015 10:31 AM PDTFormatting of this note might be differen t from the original. Baudilio Newman MD [address] [facility] [place] [address] Neurology Outpatient New Patient Note Referring Provider: [...] history. Notes from her recent hospitalization at [facility] were reviewed in detail. Ms. Arndt started feeling off in the evening of 02/01. She felt dizzy and laid down to slee p. Upon waking, she felt her right side was numb. She tried to get up to go to the bathroom and realized she was weak as well on the right. She was taken to [facility] where she was diagnosed with [...] systol ically. She was reevaluated in the [facility] ED for one such event and [...] hospitalization . This specimen was characterized at [facility], but the report is not currently available for [facility]. Unfortunately, Ms. Arndt notes that her right [...] Laterality: N/A; Surgeon: Frandy castellanos DO; Location: [facility] MAIN OR Current Medications: Outpatient [...] tablet Take 15 mg by mouth nightly. [place]-3 Fatty Acids (FISH OIL CONCENTRATE) 1000 MG [...] BMI 46.04 kg /m2 Neck Circumference: 14" [place] Sleepiness Scale: 2 General: well developed and [...] Romberg test negative Radiographic Review: CTA from [facility] reviewed on iSITE. No significant stenoses seen [...] No results found for this basename: hba1c, gpr1nta, ldl, ldldirect, ldlext, dldlex Lab Results Component [...] | | | | | [place], [place] | | | | | | [id number] | | | | | | | [...]
--- OUTSIDE RECORDS SUMMARY | ~2019-09-18 | XMS | Clinical Summary ---
Demographics + + + | Address | [address] | | | [place] [address] | + + + | Home Phone | | + + + | Preferred Language | Unknown | + + + | Marital Status | Single | + + + | Latter Day Affiliation | Unknown | + + + | Race | Unknown | + + + | Ethnic Group | Unknown | + + + Author + + + | Author | [facility] [employer] (Historical as of | | | 06-09-19) | + + + | Organization | [facility] (Historical as of | | | 06-09-19) [...] Providers + +------+ + | Care Travel Money Advisor Name | Role | Phone | [...] | | Activ | | (VITAMIN D3) [id number] | a week. | | | | [...] + | T2DM (type 2 diabetes mellitus) ([facility]) | 04/13/2013 | + + + [...] +------+-------+ + | MEDICARE | MEDICA | [id number] | | | [address] | | | RE | | | | [place] [phone] | | | IP-OP | | | [...] Self | [birth year] | Home: | [address] | | | al/Fam | | 1955 | [phone] | [address] [place] | | | [place] | | | [phone] | + +--------+ +--------+ + +
--- OUTSIDE RECORDS SUMMARY | ~2019-09-18 | XMS | Encounter Summary ---
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 [address] | [address] | | | | | (gastroesoph | [address], [address] | [place], | | | | | ageal reflux | [address] [place] | [place] [address] | | | | | disease) | [place], [place] | Phone: | | | | | Fatty liver | [address] | [phone] | | | | | DM | Phone: | Fax: | | | | | (diabetes | [phone] | [phone] | | | | | mellitus) | Fax: | | | | | | (HCC) | [phone] | | +--------+ + + + + [...] | Office | [facility] | [facility], | Epigastric abdominal | | 2012 | Visit | GASTROENTEROLOGY | FORTUNATO Thomas [address] | pain (Primary Dx); | | | | [address] | [address], [address] | GERD | | | | [address] [place], [place] | [place], [place] | (gastroesophageal | | | | [address] | [address] | reflux disease); | | | | [phone] | | Fatty liver; DM | | [...] years ago by Dr. Saravanan Tsai, in [facility]. Colonoscopy was done 05/[address] Hamlin in [facility]. Allergies Allergen Reactions Demerol Duloxetine Erythromycin [...] | | | | | [place] [place], [place] | | | | | | [id number] | | | | | | | [...]
--- OUTSIDE RECORDS SUMMARY | ~2019-09-18 | XMS | Encounter Summary ---
Demographics + + + | Address | [address] | | | [place] [address] | + + + | Home Phone [...] [place] | | | | | [address] | | + + + + + Care Team Providers + +------+ + | Care Sketch Maker Name | Role | Phone | + +------+ + | Natalee Andersen NP | PCP | | + +------+ + Encounter Details +--------+ + + + + | Date | Type | Department | Care Team | Description | +--------+ + + + + | 09/27/ | Hospital | [facility] | Frandy Teresa, | Lumbar spondylosis; | | 2013 | Encounter | MED CTR XRAY [address] | DO [address] | S/P lumbar fusion | | | | [place] | [address] [place], [place] | | | | | [place] [address] | [address] | | | | | [phone] | | | +--------+ + + + [...] + + + +---------+ + + | [place]-3 Fatty | Take 1,000 mg by | [...] [place] | | | | | | [address] | | | | | | | [...] + | MISCELLANEOUS LAB | | | [phone] | + +---------+ + + | MISCELANIOUS LAB | | | [phone] | + +---------+ + + documented in this encounter Visit Diagnoses + + | Diagnosis | + + | Lumbar spondylosis Lumbosacral spondylosis without myelopathy | + + | S/P lumbar fusion Arthrodesis status | + + documented in this encounter"
--- OUTSIDE RECORDS SUMMARY | ~2019-09-18 | XMS | Encounter Summary ---
Demographics + + + | Address | [address] | | | [place] [address] | + + + | Home Phone [...] [place] | | | | | [address] | | + + + + + Care Team Providers + +------+ + | Care Sawmill Equipment Operator Name | Role | Phone [...] | | [address] | [place] [address] | | | | | [place], [place] | [phone] | | | | | [address] | | | | | | [phone] | | | +--------+ + + + [...] | | | | | | [facility] | | | | | | [address] | | | | | | | | +--------+---------+ + + + documented as of this encounter Visit Diagnoses Not on filedocumented in this encounter"
--- OUTSIDE RECORDS SUMMARY | ~2019-09-18 | XMS | Encounter Summary ---
Demographics + + + | Address | [address] | | | [place] [address] | + + + | Home Phone [...] [place], [place] | | | | | [address] | | + + + + + Care Team Providers + +------+ + | Care Vehicle Monitor Technician Name | Role | Phone | + +------+ + PCP | Unavailable | + +------+ + Encounter Details +--------+ + + + + | Date | Type | Department | Care Team | Description | +--------+ + + + + | 01/06/ | Hospital | [facility] | | | | 1992 | Encounter | MED CTR LABORATORY | | | | | | [address] | | | | | | [place] | | | | | | [address] | | | | | | [phone] | | | +--------+ + + + [...] | | | | | [place] | | | | | | [address] | | | | | | | | +--------+---------+ + + + documented as of this encounter Visit Diagnoses Not on filedocumented in this encounter"
--- OUTSIDE RECORDS SUMMARY | ~2019-09-18 | XMS | Encounter Summary ---
Demographics + + + | Address | [address] | | | [place] [address] | + + + | Home Phone [...] [place] | | | | | [address] | | + + + + + Care Team Providers + +------+ + | Care Acoustic Sensor Operator Name | Role | Phone | + +------+ + | Natalee Andersen NP | PCP | | + +------+ + Encounter Details +--------+ + + + + | Date | Type | Department | Care Team | Description | +--------+ + + + + | 06/25/ | Hospital | [facility] | Latricia Feliciano | | | 2014 | Encounter | MED CTR ACUTE | D, PT [address] | | | | | PHYSICAL THERAPY | [place]IE [place] | | | | | [address] | [address] | | | | | [place] [address] | | | | | | [phone] | | | +--------+ + + + [...] + + + +---------+ + + | [place]-3 Fatty | Take 1,000 mg by | [...] [place] | | | | | | [address] | | | | | | | | +--------+---------+ + + + documented as of this encounter Visit Diagnoses Not on filedocumented in this encounter"
--- OUTSIDE RECORDS SUMMARY | ~2019-09-18 | XMS | Encounter Summary ---
Demographics + + + | Address | [address] | | | [place] [address] | + + + | Home Phone [...] [place] | | | | | [address] | | + + + + + Care Team Providers + +------+ + | Care Wire Machine Operator Name | Role | Phone [...] | Frandy Simons DO | [address] | | | | | of skin | [address] | [place], | | | | | sensation | [address] | [place] | | | | | Arthrodesis | [place], [place] | [address] | | | | | status Left | [address] | Phone: | | | | | leg | Phone: | [phone] | | | | | weakness | [phone] | Fax: | | | | | Procedures | Fax: | [phone] | | | | | MRI Lumbar | [phone] | | | | | | Spine [...] | Frandy Simons DO | [address] | | | | | of skin | [address] | [place], | | | | | sensation | [address] | [place] | | | | | Arthrodesis | [place] | [address] | | | | | status Left | [address] | Phone: | | | | | leg | Phone: | [phone] | | | | | weakness | [phone] | Fax: | | | | | Procedures | Fax: | [phone] | | | | | MRI Lumbar | [phone] | | | | | | Spine wo | | | | | | | Contrast | | | +--------+--------+ + + + + Encounter Details +--------+ + + + + | Date | Type | Department | Care Team | Description | +--------+ + + + + | 08/19/ | Hospital | [facility] | Frandy Teresa, | Status post lumbar | | 2013 | Encounter | MED CTR MRI [address] | DO [address] | spinal fusion; Left | | | | [address] [place], | [address] [place] | leg numbness; Left | | | | [place] [address] | [address] | leg weakness | | | | [phone] | | | +--------+ + + + [...] + + + +---------+ + + | [place]-3 Fatty | Take 1,000 mg by | [...] [place] | | | | | | [address] | | | | | | | [...] the round structure with high T1 and T0lxkare in the right L3 vertebral | | [...] + | MISCELLANEOUS LAB | | | [phone] | + +---------+ + + | MISCELANIOUS LAB | | | [phone] | + +---------+ + + documented in [...]
--- OUTSIDE RECORDS SUMMARY | ~2019-09-18 | XMS | Encounter Summary ---
Demographics + + + | Address | [address] | | | [place] [address] | + + + | Home Phone [...] [place] | | | | | [address] | | + + + + + Care Team Providers + +------+ + | Care Back Feeder Plywood Layup Line Name | Role | Phone | + [...] | | [address] | [place], [place] | | | | | [place], [place] | [address] | | | | | [address] | | | | | | [phone] | | | +--------+ + + + [...] | | | | | [place] | | | | | | [address] | | | | | | | [...] 0.83 m/s | | | MV Dec [place]: 2.85 m/s2 MV DecT: 282.89 ms MV E [place]: 0.80 | | | m/s MV E/A Ratio: 0.96 E/E' Sept: 12.59 E' Lat: 0.08 m/s | | | E' Sept: 0.06 m/s RAP: 10 mmHg RV S': 0.11 m/s RVSP: | | | 27.96 mmHg TR maxP.96 mmHg TR Vmax: 2.11 m/s | | | Blanket Maker: Authenticated by: Desiree Peterson MD Report Date/Time: | | | -- [id number]_4:31:1 | | + + + + + [...] (A-L): 19.60 | | ml/m2LAAs A2C: 15.44 [id number] A-L A2C: 43.84 mlLAESV MOD A2C: 42.12 mlLALs A2C: | | 4.61 cmLAAs A4C: 14.18 [id number] A-L A4C: 38.73 mlLAESV MOD A4C: 37.04 mlLALs A4C: | | 4.41 cmRAAs: 12.15 [id number] A-L: 28.54 mlRAESV MOD: 28.66 mlRALs: 4.39 | | cmTAPSE: 2.42 cmAV Env.Ti: 293.94 msAV maxP.18 mmHgAV meanP.09 mmHgAV | | Vmax: 1.88 m/Eddie Vmean: 1.25 m/Eddie VTI: 36.84 cmAVA Vmax: 2.06 cm2AVA (VTI): | | 2.24 [id number] Vmax: 0.00 cm2/m2AVAI (VTI): 0.00 cm2/m2LVOT Env.Ti: 299.59 msLVOT | | maxP.52 mmHgLVOT meanP.65 mmHgLVSI Dopp: 38.55 ml/m2LVSV Dopp: 82.89 | | mlLVOT Vmax: 1.27 m/sLVOT Vmean: 0.91 m/sLVOT VTI: 27.27 cmMV A Teodoro: 0.83 m/sMV | | Dec [place]: 2.85 m/s2MV DecT: 282.89 msMV E [place]: 0.80 m/sMV E/A Ratio: 0.96E/E' | | Sept: 12.59E' Lat: 0.08 m/sE' Sept: 0.06 m/sRAP: 10 mmHgRV S': 0.11 m/sRVSP: | | 27.96 mmHgTR maxP.96 mmHgTR Vmax: 2.11 m/s Blanket Maker:Authenticated by: | | Desiree Peterson MDReport Date/Time: -- [id number]:31:1 IMPRESSION: 1. Overall left | | ventricular [...] A [place]: 0.83 m/s | |MV Dec [place]: 2.85 m/s2 | |MV DecT: 282.89 ms | |MV E [place]: 0.80 m/s | |MV E/A Ratio: 0.96 | |E/E' Sept: 12.59 | |E' Lat: 0.08 m/s | |E' Sept: 0.06 m/s | |RAP: 10 mmHg | |RV S': 0.11 m/s | |RVSP: 27.96 mmHg | |TR maxP.96 mmHg | |TR Vmax: 2.11 m/s | | | |Blanket Maker: | |Authenticated by: Desiree Peterson MD | |Report Date/Time: -- [id number]:31:1 | | | |IMPRESSION: | |1. Overall [...]
--- OUTSIDE RECORDS SUMMARY | ~2019-09-18 | XMS | Encounter Summary ---
Demographics + + + | Address | [address] | | | [place] [address] | + + + | Home Phone [...] [place] | | | | | [address] | | + + + + + Care Team Providers + +------+ + | Care Joint Cutter Machine Name | Role | Phone [...] + + | 08/16/ | Telephone | [facility] | Ashley Chávez | Other (Called to | | 2018 | | [facility]ARDIOLOGY [place] | Pollo, Florist | tell patient what | | | | [address] | | Nicholas said. ) | | | | [address] | | | | | | [place] | | | | | | [address] | | | | | | [phone] | | | +--------+ + + + [...] [place] | | | | | | [address] | | | | | | | | +--------+---------+ + + + documented as of this encounter Visit Diagnoses Not on filedocumented in this encounter"
--- OUTSIDE RECORDS SUMMARY | ~2019-09-18 | XMS | Encounter Summary ---
Demographics + + + | Address | [address] | | | [place] [address] | + + + | Home Phone [...] [place] | | | | | [address] | | + + + + + Care Team Providers + +------+ + | Care Hat Steamer Name | Role | Phone [...] | | | | | pain, | [place], [place] | | | | | | bilateral | [address] | | | | | | Degenerative | Phone: | | | | | | disc | [phone] | | | | | | disease, | Fax: | | | | | | lumbar | [phone] | | | | | | Spinal [...] [address] | [address] [place], [place] | (Primary Dx); Knee | | | | [place] | [address] | pain, bilateral; | | | | [address] | | DEGENERATIVE DISC | | | | [phone] | | DISEASE, LUMBAR | | | [...] | | | | | [place] | | | | | | [address] | | | | | | | [...]
--- OUTSIDE RECORDS SUMMARY | ~2019-09-18 | XMS | Encounter Summary ---
Demographics + + + | Address | [address] | | | [place] [address] | + + + | Home Phone [...] [place] | | | | | [address] | | + + + + + Care Team Providers + +------+ + | Care Vacuum Metalizer Operator Name | Role | Phone | [...] [id number] | | | | | | [place], [place] | | | | | | [address] | | | | | | [phone] | | | +--------+ + + + [...] | + + + + + | [facility] | [address] | [place] [address] | | | PATHOLOGY | [address] [...] Re | | | | | | [id number] | | | | + + + + + + + + | Specimen | + + | | + + + + + + + | Performing | Address | City/State/Zipcode | Phone Number | | Organization | | | | + + + + + | [facility] | [address] | [place] [address] | | | PATHOLOGY | [address] [...] Re | | | | | | [address] | | | | + + + + + + + + | Specimen | + + | | + + + + + + + | Performing | Address | City/State/Zipcode | Phone Number | | Organization | | | | + + + + + | [facility] | [address] | [place] [address] | | | PATHOLOGY | [address] [...] Re | | | | | | 2635[address] | | | | + + + + + + + + | Specimen | + + | | + + + + + + + | Performing | Address | City/State/Zipcode | Phone Number | | Organization | | | | + + + + + | [facility] | [address] | [place] [address] | | | PATHOLOGY | [address] [...] Re | | | | | | [address] | | | | + + + + + + + + | Specimen | + + | | + + + + + + + | Performing | Address | City/State/Zipcode | Phone Number | | Organization | | | | + + + + + | [facility] | [address] | [place] [address] | | | PATHOLOGY | [address] | | | + + + + + documented in this encounter Visit Diagnoses Not on filedocumented in this encounter"
--- OUTSIDE RECORDS SUMMARY | ~2019-09-18 | XMS | Encounter Summary ---
Demographics + + + | Address | [address] | | | [place] [address] | + + + | Home Phone [...] [place], [place] | | | | | [address] | | + + + + + Care Team Providers + +------+ + | Care Taffy Puller Name | Role | Phone | + +------+ + PCP | Unavailable | + +------+ + Encounter Details +--------+ + + + + | Date | Type | Department | Care Team | Description | +--------+ + + + + | 04/16/ | [facility] | [facility] | Deon Gonzales | | | 2005 | Encounter | MED CTR SLEEP | MD [place] [address] | | | | | [place] [address] | [place] | | | | | [place], [place] | [place] [address] | | | | | [address] | [phone] | | | | | [phone] | | | +--------+ + + + [...] [place] | | | | | | [address] | | | | | | | | +--------+---------+ + + + documented as of this encounter Visit Diagnoses Not on filedocumented in this encounter"
--- OUTSIDE RECORDS SUMMARY | ~2019-09-18 | XMS | Encounter Summary ---
Demographics + + + | Address | [address] | | | [place] [address] | + + + | Home Phone [...] [place], [place] | | | | | [address] | | + + + + + Care Team Providers + +------+ + | Care Wool Grower Name | Role | Phone | + +------+ + PCP | Unavailable | + +------+ + Encounter Details +--------+ + + + + | Date | Type | Department | Care Team | Description | +--------+ + + + + | 03/11/ | [facility] | [facility] | Deon Gonzales | | | 2005 | Encounter | MED CTR SLEEP | MD [place] [address] | | | | | [facility] [address] | [address] | | | | | [place], [place] | [place] [address] | | | | | [address] | [phone] | | | | | [phone] | | | +--------+ + + + [...] [place] | | | | | | [address] | | | | | | | | +--------+---------+ + + + documented as of this encounter Visit Diagnoses Not on filedocumented in this encounter"
--- OUTSIDE RECORDS SUMMARY | ~2019-09-18 | XMS | Encounter Summary ---
Demographics + + + | Address | [address] | | | [place] [address] | + + + | Home Phone [...] [place] | | | | | [address] | | + + + + + Care Team Providers + +------+ + | Care Gas Shovel Operator Name | Role | Phone [...] Rd | | | | | | [place], [place] | | | | | | [address] | | | +--------+ + + + [...]
--- OUTSIDE RECORDS SUMMARY | ~2019-09-18 | XMS | Encounter Summary ---
Demographics + + + | Address | [address] | | | [place] [address] | + + + | Home Phone [...] [place], [place] | | | | | [address] | | + + + + + Care Team Providers + +------+ + | Care Livestock Auctioneer Name | Role | Phone | + +------+ + PCP | Unavailable | + +------+ + Encounter Details +--------+ + + + + | Date | Type | Department | Care Team | Description | +--------+ + + + + | 12/06/ | Hospital | [facility] | | | | 1994 | Encounter | MED CTR LABORATORY | | | | | | [address] | | | | | | [place] | | | | | | [address] | | | | | | [phone] | | | +--------+ + + + [...] | | | [place] | | | | | | [address] | | | | | | | | +--------+---------+ + + + documented as of this encounter Visit Diagnoses Not on filedocumented in this encounter"
--- OUTSIDE RECORDS SUMMARY | ~2019-09-18 | XMS | Encounter Summary ---
Demographics + + + | Address | [address] | | | [place] [address] | + + + | Home Phone [...] [place] | | | | | [address] | | + + + + + Care Team Providers + +------+ + | Care Rn Research Name | Role | Phone | [...] + + | 08/28/ | Telephone | [facility] | Ashley Chávez | Other (Patient has | | 2019 | | CARDIOLOGY GENESIS Abad, Locomotive Firer/Fireman | questions about | | | | [address] | | monitor. ) | | | | [place] | | | | | | [address] | | | | | | [phone] | | | +--------+ + + + [...] [place] | | | | | | [address] | | | | | | | | +--------+---------+ + + + documented as of this encounter Visit Diagnoses Not on filedocumented in this encounter"
--- OUTSIDE RECORDS SUMMARY | ~2019-09-18 | XMS | Encounter Summary ---
Demographics + + + | Address | [address] | | | [place] [address] | + + + | Home Phone [...] [place], [place] | | | | | [address] | | + + + + + Care Team Providers + +------+ + | Care Boarding Machine Operator Name | Role | Phone | + +------+ + PCP | Unavailable | + +------+ + Encounter Details +--------+ + + + + | Date | Type | Department | Care Team | Description | +--------+ + + + + | 07/17/ | Hospital | [facility] | | | | 1997 | Encounter | MED CTR EMERGENCY | | | | | | [address] | | | | | | [place] | | | | | | [address] | | | | | | [phone] | | | +--------+ + + + [...] | | | | | [place] | | | | | | [address] | | | | | | | | +--------+---------+ + + + documented as of this encounter Visit Diagnoses Not on filedocumented in this encounter"
--- OUTSIDE RECORDS SUMMARY | ~2019-09-18 | XMS | Encounter Summary ---
Demographics + + + | Address | [address] | | | [place] [address] | + + + | Home Phone [...] [place], [place] | | | | | [address] | | + + + + + Care Team Providers + +------+ + | Care Pipe Layer Name | Role | Phone | + +------+ + PCP | Unavailable | + +------+ + Encounter Details +--------+ + + + + | Date | Type | Department | Care Team | Description | +--------+ + + + + | 05/23/ | Hospital | [facility] | Dale, Heath E A, | | | 2012 | Encounter | MED CTR XRAY [address] | MD [address] | | | | | [place] | [place] | | | | | [place] [address] | [address] | | | | | [phone] | | | +--------+ + + + [...] [place] | | | | | | [address] | | | | | | | [...] [facility] Diagnostic Imaging Department | [facility] | | [address] [facility] | [facility] | | LUMBAR SPINE MR WITHOUT CONTRAST, [...] Transcribed Date/Time: | | | 05/23/2012 16:55 Book Solicitor: <Electronically Signed | | | by Adriano Anne MD> 05/23/12 8265 | | + + + + + | Procedure Note | + + | Manohar Martinez Conversion - 11/30/2013 5:47 PM [facility] | | Diagnostic Imaging Department [address] [facility] [place] | | LUMBAR SPINE [...] 16:37 | |Transcribed Date/Time: 05/23/2012 16:55 | |Book Solicitor: | |<Electronically Signed by Adirano Anne MD> 05/23/12 1725 | + + [...]
--- OUTSIDE RECORDS SUMMARY | ~2019-09-18 | XMS | Encounter Summary ---
Demographics + + + | Address | [address] | | | [place] [address] | + + + | Home Phone [...] [place], [place] | | | | | [address] | | + + + + + Care Team Providers + +------+ + | Care Radiographer Mammographer Name | Role | Phone | + +------+ + PCP | Unavailable | + +------+ + Encounter Details +--------+ + + + + | Date | Type | Department | Care Team | Description | +--------+ + + + + | 12/27/ | Hospital | [facility] | | | | 1997 - | Encounter | MED CTR GENERIC PSY | | | | | | CONV DEPT [address] | | | | 01/01/ | | [place], | | | | 1997 | | [place] [address] | | | | | | [phone] | | | +--------+ + + + [...] [place] | | | | | | [address] | | | | | | | | +--------+---------+ + + + documented as of this encounter Visit Diagnoses Not on filedocumented in this encounter"
--- OUTSIDE RECORDS SUMMARY | ~2019-09-18 | XMS | Encounter Summary ---
Demographics + + + | Address | [address] | | | [place] [address] | + + + | Home Phone [...] [place], [place] | | | | | [address] | | + + + + + Care Team Providers + +------+ + | Care Tuber Machine Cutter Name | Role | Phone | + +------+ + PCP | Unavailable | + +------+ + Encounter Details +--------+ + + + + | Date | Type | Department | Care Team | Description | +--------+ + + + + | 01/06/ | Hospital | [facility] | | | | 1992 | Encounter | MED CTR LABORATORY | | | | | | [address] | | | | | | [place] | | | | | | [address] | | | | | | [phone] | | | +--------+ + + + [...] | | | | | [place] | | | | | | [address] | | | | | | | | +--------+---------+ + + + documented as of this encounter Visit Diagnoses Not on filedocumented in this encounter"
--- OUTSIDE RECORDS SUMMARY | ~2019-09-18 | XMS | Encounter Summary ---
Demographics + + + | Address | [address] | | | [place] [address] | + + + | Home Phone [...] [place], [place] | | | | | [address] | | + + + + + Care Team Providers + +------+ + | Care Any Commodity Buyer Name | Role | Phone | + +------+ + PCP | Unavailable | + +------+ + Encounter Details +--------+ + + + + | Date | Type | Department | Care Team | Description | +--------+ + + + + | 05/23/ | Hospital | [facility] | | | | 1991 | Encounter | MED CTR XRAY [address] | | | | | | [place] | | | | | | [place] [address] | | | | | | [phone] | | | +--------+ + + + [...] | | | | | [place] | | | | | | [address] | | | | | | | | +--------+---------+ + + + documented as of this encounter Visit Diagnoses Not on filedocumented in this encounter"
--- OUTSIDE RECORDS SUMMARY | ~2019-09-18 | XMS | Encounter Summary ---
Demographics + + + | Address | [address] | | | [place] [address] | + + + | Home Phone [...] [place] | | | | | [address] | | + + + + + Care Team Providers + +------+ + | Care Collection Clerk Name | Role | Phone | [...] + + | 02/26/ | Emergency | [facility] | [place], | CVA (cerebral | | 2015 | | MED CTR EMERGENCY | Davey Simons MD [address] | vascular accident) | | | | CENTER [address] | [address] [facility] | ([facility]) (Primary Dx) | | | | [place], [place] | [place] [address] | | | | | [address] | [phone] | | | | | [phone] | | | +--------+ + + + [...] + + + +---------+ + + | Vernalis-3 Fatty | Take 1,000 mg by | [...] | | | | | [place] | | | | | | [address] | | | | | | | [...] mL/min/1.73m2 | [facility] | | | MALAGASY | RATE,ESTIMATED | | MEDICAL | | | | mL/min/1.99r3Gmgt than | | CENTER - | | [...] | 9.1 | 8.3 - 10.5 | [facility] | | | | | mg/dL [...] [address] | [place] | [phone] | | [facility] | | [address] | | | - LABORATORY | | [...] [address] | [place] | [phone] | | [facility] | | [address] | | | - LABORATORY | | [...] | ---- | | | 02/26/2015 13:10 [facility] | | | Emergency -numbness/facial droop 02/26/2015 [...] ------ | | | --------- [address] | | | [facility] [address] [address] [address] | | | [facility] 7 0 Total | | | Note: Visits indicate total known visits. Medicaid [place] Dx are the | | | number of primary diagnoses on the [facility]'s non-emergent dx list. | | | [...]
--- OUTSIDE RECORDS SUMMARY | ~2019-09-18 | XMS | Encounter Summary ---
Demographics + + + | Address | [address] | | | [place] [address] | + + + | Home Phone [...] [place] | | | | | [address] | | + + + + + Care Team Providers + +------+ + | Care Wheel Presser Name | Role | Phone | [...] | Frandy Simons DO | [address] | | | | | of skin | [address] | [place], | | | | | sensation | [address] | [place] | | | | | Arthrodesis | [place], [place] | [address] | | | | | status Left | [address] | Phone: | | | | | leg | Phone: | [phone] | | | | | weakness | [phone] | Fax: | | | | | Procedures | Fax: | [phone] | | | | | MRI Lumbar | [phone] | | | | | | Spine [...] [address] | [address] [place], [place] | | | | | [place], [place] | [address] | | | | | [address] | | | | | | [phone] | | | +--------+ + + + [...] [place] | | | | | | [address] | | | | | | | [...] the round structure with high T1 and Q6xcwnuq in the right L3 vertebral | | [...] + | MISCELLANEOUS LAB | | | [phone] | + +---------+ + + | MISCELANIOUS LAB | | | [phone] | + +---------+ + + documented in [...]
--- OUTSIDE RECORDS SUMMARY | ~2019-09-18 | XMS | Encounter Summary ---
Demographics + + + | Address | [address] | | | [place] [address] | + + + | Home Phone [...] [place], [place] | | | | | [address] | | + + + + + Care Team Providers + +------+ + | Care Energy Auditor Name | Role | Phone | + +------+ + PCP | Unavailable | + +------+ + Encounter Details +--------+ + + + + | Date | Type | Department | Care Team | Description | +--------+ + + + + | 08/21/ | Hospital | [facility] | | | | 1996 | Encounter | MED CTR LABORATORY | | | | | | [address] | | | | | | [place] | | | | | | [address] | | | | | | [phone] | | | +--------+ + + + [...] | | | | | [place] | | | | | | [address] | | | | | | | | +--------+---------+ + + + documented as of this encounter Visit Diagnoses Not on filedocumented in this encounter"
--- OUTSIDE RECORDS SUMMARY | ~2019-09-18 | XMS | Encounter Summary ---
Demographics + + + | Address | [address] | | | [place] [address] | + + + | Home Phone [...] [place], [place] | | | | | [address] | | + + + + + Care Team Providers + +------+ + | Care Deck Lid Fitter Name | Role | Phone | + +------+ + PCP | Unavailable | + +------+ + Encounter Details +--------+ + + + + | Date | Type | Department | Care Team | Description | +--------+ + + + + | 07/17/ | Hospital | [facility] | | | | 1997 | Encounter | MED CTR EMERGENCY | | | | | | [address] | | | | | | [place] | | | | | | [address] | | | | | | [phone] | | | +--------+ + + + [...] | | | | | [place] | | | | | | [address] | | | | | | | | +--------+---------+ + + + documented as of this encounter Visit Diagnoses Not on filedocumented in this encounter"
--- OUTSIDE RECORDS SUMMARY | ~2019-09-18 | XMS | Encounter Summary ---
Demographics + + + | Address | [address] | | | [place] [address] | + + + | Home Phone [...] [place], [place] | | | | | [address] | | + + + + + Care Team Providers + +------+ + | Care Financial Institution Vice President Name | Role | Phone | + +------+ + PCP | Unavailable | + +------+ + Encounter Details +--------+ + + + + | Date | Type | Department | Care Team | Description | +--------+ + + + + | 06/30/ | Hospital | [facility] | | | | 1999 - | Encounter | MED CTR GENERIC PSY | | | | | | CONV DEPT [address] | | | | 07/05/ | | [address] [place], | | | | 1999 | | [place] [address] | | | | | | [phone] | | | +--------+ + + + [...] [place] | | | | | | [address] | | | | | | | | +--------+---------+ + + + documented as of this encounter Visit Diagnoses Not on filedocumented in this encounter"
--- OUTSIDE RECORDS SUMMARY | ~2019-09-18 | XMS | Encounter Summary ---
Demographics + + + | Address | [address] | | | [place] [address] | + + + | Home Phone [...] [place], [place] | | | | | [address] | | + + + + + Care Team Providers + +------+ + | Care Associate Trainer Name | Role | Phone | + +------+ + PCP | Unavailable | + +------+ + Encounter Details +--------+ + + + + | Date | Type | Department | Care Team | Description | +--------+ + + + + | 04/16/ | Hospital | [facility] | | | | 1997 | Encounter | MED CTR XRAY [address] | | | | | | [address] | | | | | | [place] [address] | | | | | | [phone] | | | +--------+ + + + [...] 10/11/ | Office | Cardiology | Desiree Petersno DO | | | 2019 | Visit | | [address] | | | | | | [place] | | | | | | [address] | | | | | | | | +--------+---------+ + + + documented as of this encounter Visit Diagnoses Not on filedocumented in this encounter"
--- OUTSIDE RECORDS SUMMARY | ~2019-09-18 | XMS | Encounter Summary ---
Demographics + + + | Address | [address] | | | [place] [address] | + + + | Home Phone [...] [place] | | | | | [address] | | + + + + + Care Team Providers + +------+ + | Care Dog Trainer Name | Role | Phone [...] [address] | [address] [place], [place] | Hypothyroidism; | | | | [place] | [address] | GERD; BACK PAIN, | | | | [address] | | LUMBAR, WITH | | | | [phone] | | RADICULOPATHY; | | | | [...] [place] | | | | | | [address] | | | | | | | [...]
--- OUTSIDE RECORDS SUMMARY | ~2019-09-18 | XMS | Encounter Summary ---
Demographics + + + | Address | [address] | | | [place] [address] | + + + | Home Phone [...] [place] | | | | | [address] | | + + + + + Care Team Providers + +------+ + | Care Ham Trimmer Name | Role | Phone | [...] | | | spondylolist | | [address] | | | | | hesis | | [place], | | | | | Spinal | | [place] [address] | | | | | stenosis, | | Phone: | | | | | lumbar | | [phone] | | | | | region, | | Fax: | | | | | without | | [phone] | | | | | neurogenic | [...] + + | 07/02/ | Surgery | [facility] | Frandy Teresa, | MIS L5-S1 | | 2013 | | MED CTR OR INTRA OP | DO [address] | TRANSFORAMINAL | | | | [address] | [address] [place], [place] | LUMBAR INTERBODY | | | | [place] | [id number] | FUSION | | | | [address] | | | | | | [phone] | | | +--------+---------+ + + + [...] for discharge to SNF. DISPOSITION: SNF ([facility] DISCHARGE MEDICATIONS Medications prior to [...] Take 15 mg by mouth nightl y. Essex-3 Fatty Acids (FISH OIL CONCENTRATE) 1000 MG [...] + + + +---------+ + + | Essex-3 Fatty | Take 1,000 mg by | [...] prophylaxis -DC plan: SNF versus home with [facility] any time. aria T Neff RN - 07/04/2014 6:56 PM PDTFoley cath dc'd and MARI drain dc'd no problems. Chris Lynn PA-C - 07/04/2014 7:43 AM PDT [facility] PROGRESS NOTE Pt. Name/Age/: Cindy Arndt 58 y.o. 1955 Med. Record Number: [id number] Date of admission: 07/02/2014 Subjective: The patient [...] home medications. D/C plan: Home tomorrow with [facility]. D/c mari drain and riley cath today. 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 Patient Active Problem List Diagnosis LUMBAR DISC [...] 07/03/2014 7:13 AM PDT . [facility] PROGRESS NOTE Pt. Name/Age/: Cindy Arndt 58 y.o. 1955 Med. Record Number: [id number] Date of admission: 07/02/2014 Subjective: The patient [...] signed by: Chris Nicole, 07/03/2014 7:[address] [facility] Ton Johnston, KRIS - 07/03/2014 [...] | | | | | [place] | | | | | | [address] | | | | | | | [...] ST. | [address] | [place], [place] | [phone] | | [facility] | | [address] | | | - LABORATORY | | | | + + + + + | [facility] | [address] | [place], [place] | | | [facility] | | [address] | | | - LABORATORY | | [...] [address] | [place] | [phone] | | [facility] | | [address] | | | - LABORATORY | | | | + + + + + | [facility] | [address] | [place] | | | [facility] | | [address] | | | - LABORATORY | | [...] ST. | [address] | [place], [place] | [phone] | | [facility] | | [address] | | | - LABORATORY | | | | + + + + + | [facility] | [address] | [place], [place] | | | [facility] | | [address] | | | - LABORATORY | | [...] ST. | [address] | [place] | [phone] | | [facility] | | [address] | | | - LABORATORY | | | | + + + + + | [facility] | [address] | [place], [place] | | | [facility] | | [address] | | | - LABORATORY | | [...] ST. | [address] | [place], [place] | [phone] | | [facility] | | [address] | | | - LABORATORY | | | | + + + + + | [facility] | [address] | [place] | | | [facility] | | [address] | | | - LABORATORY | | [...] + | [facility] | [address] | [place] | [phone] | | [facility] | | [address] | | | - LABORATORY | | | | + + + + + | [facility] | [address] | [place] | | | [facility] | | [address] | | | - LABORATORY | | [...] + + | Performing | Address | City/State/[facility] | Phone Number | | Organization | | | | + + + + + | [facility] | [address] | [place] | [phone] | | [facility] | | [address] | | | - LABORATORY | | | | + + + + + | [facility] | [address] | [place] | | | [facility] | | [address] | | | - LABORATORY | | [...] [address] | [place] | [phone] | | [facility] | | [address] | | | - LABORATORY | | | | + + + + + | [facility] | [address] | [place] | | | [facility] | | [address] | | | - LABORATORY | | [...] [address] | [place] | [phone] | | [facility] | | [address] | | | - LABORATORY | | | | + + + + + | [facility] | [address] | [place], [place] | | | [facility] | | [address] | | | - LABORATORY | | [...] | of hardware for posterior fusion from L0snymyaf S1 with interbody hardware at L5-S1. The [...] + | MISCELLANEOUS LAB | | | [phone] | + +---------+ + + | MISCELANIOUS LAB | | | [phone] | + +---------+ + + POC Glucose [...] + | [facility] | [address] | [place] | [phone] | | [facility] | | [address] | | | - LABORATORY | | | | + + + + + | [facility] | [address] | [place] | | | [facility] | | [address] | | | - LABORATORY | | [...] ST. | [address] | [place], [place] | [phone] | | [facility] | | [address] | | | - LABORATORY | | | | + + + + + | [facility] | [address] | [place] | | | [facility] | | [address] | | | - LABORATORY | | [...] | | | POC | | | [facility] | | | | | | MEDICAL [...] [address] | [place] | [phone] | | [facility] | | [address] | | | - LABORATORY | | | | + + + + + | [facility] | [address] | [place] | | | [facility] | | [address] | | | - LABORATORY | | [...] [address] | [place] | [phone] | | [facility] | | [address] | | | - LABORATORY | | | | + + + + + | [facility] | [address] | [place] | | | [facility] | | [address] | | | - LABORATORY | | [...] ST. | [address] | [place], [place] | [phone] | | [facility] | | [address] | | | - LABORATORY | | | | + + + + + | [facility] | [address] | [place], [place] | | | [facility] | | [address] | | | - LABORATORY | | [...] ST. | [address] | [place] | | | [facility] | | [address] | | | - BLOOD BANK | [...] mLs | | Surgical | | 1:200,000 0.25-1:153541 % | | 14 12:42 | | [...]
--- OUTSIDE RECORDS SUMMARY | ~2019-09-18 | XMS | Encounter Summary ---
Demographics + + + | Address | [address] | | | [place] [address] | + + + | Home Phone [...] [place], [place] | | | | | [address] | | + + + + + Care Team Providers + +------+ + | Care Long Lines Operator Name | Role | Phone | + +------+ + PCP | Unavailable | + +------+ + Encounter Details +--------+ + + + + | Date | Type | Department | Care Team | Description | +--------+ + + + + | 12/27/ | Hospital | [facility] | | | | 1995 | Encounter | MED CTR LABORATORY | | | | | | [address] | | | | | | [place] | | | | | | [address] | | | | | | [phone] | | | +--------+ + + + [...] | | | | | [place] | | | | | | [address] | | | | | | | | +--------+---------+ + + + documented as of this encounter Visit Diagnoses Not on filedocumented in this encounter"
--- OUTSIDE RECORDS SUMMARY | ~2019-09-18 | XMS | Encounter Summary ---
Demographics + + + | Address | [address] | | | [place] [address] | + + + | Home Phone [...] [place] | | | | | [address] | | + + + + + Care Team Providers + +------+ + | Care Cds Sales Advisor Name | Role | Phone | [...] + | 09/26/ | Refill | [facility] | Frandy Teresa, | Medication Refill | | 2013 | | NEUROSURG[address] | DO [address] | | | | | [address] | [address] [place], [place] | | | | | [place], [place] | [id number] | | | | | [address] | | | | | | [phone] | | | +--------+--------+ + + + [...] | | | | | [place] | | | | | | [address] | | | | | | | | +--------+---------+ + + + documented as of this encounter Visit Diagnoses Not on filedocumented in this encounter"
--- OUTSIDE RECORDS SUMMARY | ~2019-09-18 | XMS | Encounter Summary ---
Demographics + + + | Address | [address] | | | [place] [address] | + + + | Home Phone [...] [place] | | | | | [address] | | + + + + + Care Team Providers + +------+ + | Care Material Lister Name | Role | Phone | + [...] + + | 08/15/ | Documentati | [facility] | Katharine Moncada, | Other (urgent | | 2019 | on | CARDIOLOGY [place] | Technologist | report) | | | | [address] | | | | | | [place] | | | | | | [address] | | | | | | [phone] | | | +--------+ + + + [...] [place] | | | | | | [address] | | | | | | | | +--------+---------+ + + + documented as of this encounter Visit Diagnoses Not on filedocumented in this encounter"
--- OUTSIDE RECORDS SUMMARY | ~2019-09-18 | XMS | Encounter Summary ---
Demographics + + + | Address | [address] | | | [place] [address] | + + + | Home Phone [...] [place], [place] | | | | | [address] | | + + + + + Care Team Providers + +------+ + | Care Sugar Plantation Manager Name | Role | Phone | + +------+ + PCP | Unavailable | + +------+ + Encounter Details +--------+ + + + + | Date | Type | Department | Care Team | Description | +--------+ + + + + | 02/02/ | Hospital | [facility] | Serafin Bautista | | | 2012 | Encounter | MED CTR XRAY [address] | T, MD [address] | | | | | [place] | ST [place], [place] | | | | | [place] [address] | [address] | | | | | [phone] | | | +--------+ + + + [...] [place] | | | | | | [address] | | | | | | | [...] Performed At | + + + | [facility] Diagnostic Imaging Department | [facility] | | [address] | [facility] | | PROCEDURE: EPIDURAL STEROID | [...] Transcribed Date/Time: | | | 02/03/2012 18:45 Addiction Counselor: <Electronically Signed | | | by Serafin Bautista MD> 02/14/12 0916 | | + + + + + | Procedure Note | + + | Juan, Rad Conversion - 11/30/2013 5:06 PM [facility] | | Diagnostic Imaging Department | | [address] | | | | | | | [...] | Transcribed Date/Time: 02/03/2012 18:45 | | Addiction Counselor: LaMAHIN | | <Electronically Signed by Serafin [...]
--- OUTSIDE RECORDS SUMMARY | ~2019-09-18 | XMS | Encounter Summary ---
Demographics + + + | Address | [address] | | | [place] [address] | + + + | Home Phone [...] [place], [place] | | | | | [address] | | + + + + + Care Team Providers + +------+ + | Care Technical Training Coordinator Name | Role | Phone | + +------+ + PCP | Unavailable | + +------+ + Encounter Details +--------+ + + + + | Date | Type | Department | Care Team | Description | +--------+ + + + + | 02/22/ | Hospital | [facility] | | | | 1996 | Encounter | MED CTR EMERGENCY | | | | | | [address] | | | | | | [place] | | | | | | [address] | | | | | | [phone] | | | +--------+ + + + [...] | | | | [place] | | | | | | [address] | | | | | | | | +--------+---------+ + + + documented as of this encounter Visit Diagnoses Not on filedocumented in this encounter"
--- OUTSIDE RECORDS SUMMARY | ~2019-09-18 | XMS | Encounter Summary ---
Demographics + + + | Address | [address] | | | [place] [address] | + + + | Home Phone [...] [place] | | | | | [address] | | + + + + + Care Team Providers + +------+ + | Care Electron Beam Welder Name | Role | Phone | [...] + + | 08/28/ | Telephone | [facility] | Ashley Chávez | Other (Patient has | | 2019 | | CARDIOLOGY [place] Abad, Insurance Consultant | questions about | | | | [address] | | monitor. ) | | | | [place] | | | | | | [address] | | | | | | [phone] | | | +--------+ + + + [...] [place] | | | | | | [address] | | | | | | | | +--------+---------+ + + + documented as of this encounter Visit Diagnoses Not on filedocumented in this encounter"
--- OUTSIDE RECORDS SUMMARY | ~2019-09-18 | XMS | Encounter Summary ---
Demographics + + + | Address | [address] | | | [place] [address] | + + + | Home Phone [...] [place], [place] | | | | | [address] | | + + + + + [...] | 03/13/ | Hospital | [facility] | | | | 1996 - | Encounter | MED CTR GENERIC OP | | | | | | CONV DEPT [address] | | | | 03/21/ | | [address] [place], | | | | 1996 | | [place] [address] | | | | | | [phone] | | | +--------+ + + + [...] [place] | | | | | | [address] | | | | | | | | +--------+---------+ + + + documented as of this encounter Visit Diagnoses Not on filedocumented in this encounter"
--- OUTSIDE RECORDS SUMMARY | ~2019-09-18 | XMS | Encounter Summary ---
Demographics + + + | Address | [address] | | | [place] [address] | + + + | Home Phone [...] [place], [place] | | | | | [address] | | + + + + + Care Team Providers + +------+ + | Care Wardrobe Specialty Worker Name | Role | Phone | + +------+ + PCP | Unavailable | + +------+ + Encounter Details +--------+ + + + + | Date | Type | Department | Care Team | Description | +--------+ + + + + | 09/23/ | Hospital | [facility] | | | | 1994 | Encounter | MED CTR LABORATORY | | | | | | [address] | | | | | | [place] | | | | | | [address] | | | | | | [phone] | | | +--------+ + + + [...] | | | | | [place] | | | | | | [address] | | | | | | | | +--------+---------+ + + + documented as of this encounter Visit Diagnoses Not on filedocumented in this encounter"
--- OUTSIDE RECORDS SUMMARY | ~2019-09-18 | XMS | Encounter Summary ---
Demographics + + + | Address | [address] | | | [place] [address] | + + + | Home Phone [...] [place], [place] | | | | | [address] | | + + + + + Care Team Providers + +------+ + | Care Group Work Program Aide Name | Role | Phone | + +------+ + PCP | Unavailable | + +------+ + Encounter Details +--------+ + + + + | Date | Type | Department | Care Team | Description | +--------+ + + + + | 02/02/ | Hospital | [facility] | | | | 1997 - | Encounter | MED CTR GENERIC PSY | | | | | | CONV DEPT [address] | | | | 02/05/ | | [address], | | | | 1997 | | [place] [address] | | | | | | [phone] | | | +--------+ + + + [...] [place] | | | | | | [address] | | | | | | | | +--------+---------+ + + + documented as of this encounter Visit Diagnoses Not on filedocumented in this encounter"
--- OUTSIDE RECORDS SUMMARY | ~2019-09-18 | XMS | Encounter Summary ---
Demographics + + + | Address | [address] | | | [place] [address] | + + + | Home Phone [...] [place] | | | | | [address] | | + + + + + Care Team Providers + +------+ + | Care Facility Rehab Director Name | Role | Phone | [...] + + | 08/16/ | Documentati | [facility] | Katharine Moncada, | Other (urgent | | 2019 | on | CARDIOLOGY [place] | Technologist | report) | | | | [address] | | | | | | [place] | | | | | | [address] | | | | | | [phone] | | | +--------+ + + + [...] [place] | | | | | | [address] | | | | | | | | +--------+---------+ + + + documented as of this encounter Visit Diagnoses Not on filedocumented in this encounter"
--- OUTSIDE RECORDS SUMMARY | ~2019-09-18 | XMS | Encounter Summary ---
Demographics + + + | Address | [address] | | | [place] [address] | + + + | Home Phone [...] [place], [place] | | | | | [address] | | + + + + + Care Team Providers + +------+ + | Care Top Closer Name | Role | Phone | [...] Location | | | | | | [phone] | | | +--------+ + + + [...] [place] | | | | | | [address] | | | | | | | | +--------+---------+ + + + documented as of this encounter Visit Diagnoses Not on filedocumented in this encounter"
--- OUTSIDE RECORDS SUMMARY | ~2019-09-18 | XMS | Encounter Summary ---
Demographics + + + | Address | [address] | | | [place] [address] | + + + | Home Phone [...] [place] | | | | | [address] | | + + + + + Care Team Providers + +------+ + | Care Sewing Machine Adjuster Name | Role | Phone | [...] [address] | | | | | [address] [place], [place] | [place] [address] | | | | | [address] | | | | | | [phone] | | | +--------+ + + + [...] 2018 | Visit | | [address] | | | | | | [place], [place] | | | | | | [address] | | | | | | | | +--------+---------+ + + + documented as of this encounter Visit Diagnoses Not on filedocumented in this encounter"
--- OUTSIDE RECORDS SUMMARY | ~2019-09-18 | XMS | Encounter Summary ---
Demographics + + + | Address | [address] | | | [place] [address] | + + + | Home Phone [...] [place] | | | | | [address] | | + + + + + Care Team Providers + +------+ + | Care Windows Server Specialist Name | Role | Phone | [...] | | | | | | | [address] | | | | | | | Phone: | | | | | | | [phone] | | | | | | | Fax: | | | | | | | [phone] | | +--------+--------+ + + + + Encounter Details +--------+---------+ + + + | Date | Type | Department | Care Team | Description | +--------+---------+ + + + | 02/27/ | Office | [facility] | Baudilio Newman | Neuropathy (Primary | | 2015 | Visit | NEUROLOGY LAURIE | MD Pollo Need updated | Dx); Sleep apnea; | | | | [address] [facility], | address | Stroke (HCC); | | | | [address] [place] | | Thyroid disease | | | | [place] [address] | | | | | | [phone] | | | +--------+---------+ + + + [...] supply of blood, brain tissue quickly dies. 4734-0185 [employer]. [address] [place] [address], [place] [address]. All righ ts reserved. This information is not intended as a substitute for professional medical care. Always follow your healthcare professional's instructions. documented in this encounter Progress Notes Baudilio Newman MD - 02/27/2015 10:31 AM PDTFormatting of this note might be differen t from the original. Baudilio Newman MD [address] [facility], [address] [place] [address] Neurology Outpatient New Patient Note Referring Provider: [...] history. Notes from her recent hospitalization at [facility] were reviewed in detail. Ms. Arndt started [...] the report is not currently available for [facility]. Unfortunately, Ms. Arndt notes that her [...] [facility] MAIN OR Current Medications: Outpatient Medications [...] Take 15 mg by mouth nightly. [place]-3 Fatty Acids (FISH OIL CONCENTRATE) 1000 MG [...] BMI 46.04 kg /m2 Neck Circumference: 14" [place] Sleepiness Scale: 2 General: well developed and [...] Romberg test negative Radiographic Review: CTA from [facility] reviewed on i[facility]ITE. No significant stenoses seen [...] No results found for this basename: hba1c, eto4obk, ldl, ldldirect, ldlext, dldlex Lab Results Component [...] | | | | | [place], [place] | | | | | | [id number] | | | | | | | [...]
--- OUTSIDE RECORDS SUMMARY | ~2019-09-18 | XMS | Encounter Summary ---
Demographics + + + | Address | [address] | | | [place] [address] | + + + | Home Phone [...] [place] | | | | | [address] | | + + + + + Care Team Providers + +------+ + | Care Car Stower Name | Role | Phone | + +------+ + | Natalee Andersen NP | PCP | | + +------+ + Encounter Details +--------+ + + + + | Date | Type | Department | Care Team | Description | +--------+ + + + + | 06/25/ | Hospital | [facility] | Frandy Teresa, | Acquired | | 2014 | Encounter | MED CTR XRAY [address] | DO [address] | spondylolisthesis | | | | [place] | [address] [place], [place] | | | | | [place] [address] | [address] | | | | | [phone] | | | +--------+ + + + [...] + + + +---------+ + + | [place]-3 Fatty | Take 1,000 mg by | [...] [place] | | | | | | [address] | | | | | | | | +--------+---------+ + + + documented as of this encounter Visit Diagnoses + + | Diagnosis | + + | Acquired spondylolisthesis | + + documented in this encounter"
--- OUTSIDE RECORDS SUMMARY | ~2019-09-18 | XMS | Encounter Summary ---
Demographics + + + | Address | [address] | | | [place] [address] | + + + | Home Phone [...] [place] | | | | | [address] | | + + + + + [...] + + | 07/10/ | Telephone | [facility] | Frandy Teresa, | Imaging Only (1 year | | 2014 | | NEUROSURGERY [address] | DO [address] | x-ray ) | | | | [address] | [address] [place], [place] | | | | | [place], [place] | [id number] | | | | | [address] | | | | | | [phone] | | | +--------+ + + + [...] [place] | | | | | | [address] | | | | | | | | +--------+---------+ + + + documented as of this encounter Visit Diagnoses Not on filedocumented in this encounter"
--- OUTSIDE RECORDS SUMMARY | ~2019-09-18 | XMS | Encounter Summary ---
Demographics + + + | Address | [address] | | | [place] [address] | + + + | Home Phone [...] [place] | | | | | [address] | | + + + + + Care Team Providers + +------+ + | Care Warehouse Director Name | Role | Phone | [...] | | | | | | | [address] | | | | | | | Phone: | | | | | | | [phone] | | | | | | | Fax: | | | | | | | [phone] | | +--------+ + + + + + Reason for Visit + + + | Reason | Comments | + + + | Follow-up | 4 Week PO | + + + Encounter Details +--------+---------+ + + + | Date | Type | Department | Care Team | Description | +--------+---------+ + + + | 07/25/ | Office | [facility] | Frandy Teresa, | Lumbar spondylosis | | 2013 | Visit | NEUROSURGERY [address] | DO [address] | (Primary Dx); S/P | | | | [address] | [address] [place], [place] | lumbar fusion | | | | [place], [place] | [address] | | | | | [address] | | | | | | [phone] | | | +--------+---------+ + + + [...] [address] [facility], [address] [place], [place] [address] FAX: NEUROSURGERY SURGICAL FOLLOW-UP CHIEF COMPLAINT: Chief [...] Take 15 mg by mouth nightl y. [place]-3 Fatty Acids (FISH OIL CONCENTRATE) 1000 MG [...] [place] | | | | | | [id number] | | | | | | | [...] + | MISCELLANEOUS LAB | | | [phone] | + +---------+ + + | MISCELANIOUS LAB | | | [phone] | + +---------+ + + documented in this encounter Visit Diagnoses + + | Diagnosis | + + | Lumbar spondylosis - Primary Lumbosacral spondylosis without myelopathy | + + | S/P lumbar fusion Arthrodesis status | + + documented in this encounter
--- OUTSIDE RECORDS SUMMARY | ~2019-09-18 | XMS | Encounter Summary ---
Demographics + + + | Address | [address] | | | [place] [address] | + + + | Home Phone [...] [place], [place] | | | | | [address] | | + + + + + Care Team Providers + +------+ + | Care Photonics Technician Name | Role | Phone | + +------+ + PCP | Unavailable | + +------+ + Encounter Details +--------+ + + + + | Date | Type | Department | Care Team | Description | +--------+ + + + + | 01/25/ | Hospital | [facility] | | | | 2002 | Encounter | MED CTR XRAY [address] | | | | | | [place] | | | | | | [place] [address] | | | | | | [phone] | | | +--------+ + + + [...] | | | | | [place] | | | | | | [address] | | | | | | | | +--------+---------+ + + + documented as of this encounter Visit Diagnoses Not on filedocumented in this encounter"
--- OUTSIDE RECORDS SUMMARY | ~2019-09-18 | XMS | Encounter Summary ---
Demographics + + + | Address | [address] | | | [place] [address] | + + + | Home Phone [...] [place], [place] | | | | | [address] | | + + + + + Care Team Providers + +------+ + | Care Foreign Banknote Teller Name | Role | Phone | + +------+ + PCP | Unavailable | + +------+ + Encounter Details +--------+ + + + + | Date | Type | Department | Care Team | Description | +--------+ + + + + | 04/01/ | Hospital | [facility] | | | | 1998 | Encounter | MED CTR XRAY [address] | | | | | | [place] | | | | | | [place] [address] | | | | | | [phone] | | | +--------+ + + + [...] | | | | | [place] | | | | | | [address] | | | | | | | | +--------+---------+ + + + documented as of this encounter Visit Diagnoses Not on filedocumented in this encounter"
--- OUTSIDE RECORDS SUMMARY | ~2019-09-18 | XMS | Encounter Summary ---
Demographics + + + | Address | [address] | | | [place] [address] | + + + | Home Phone [...] [place] | | | | | [address] | | + + + + + Care Team Providers + +------+ + | Care Glass Blowing Lathe Operator Name | Role | Phone [...] + + | 03/26/ | Telephone | [facility] | Thierry Fry | Medication Prior | | 2015 | | MEDICINE [facility] | MD Lisa [address] | Authorization | | | | [facility] | [facility] | (Dexilant 60Mg) | | | | [place] [address] | [address] | | | | | [phone] | | | +--------+ + + + [...] [place] | | | | | | [address] | | | | | | | | +--------+---------+ + + + documented as of this encounter Visit Diagnoses Not on filedocumented in this encounter"
--- OUTSIDE RECORDS SUMMARY | ~2019-09-18 | XMS | Encounter Summary ---
Demographics + + + | Address | [address] | | | [place] [address] | + + + | Home Phone [...] [place] | | | | | [address] | | + + + + + Care Team Providers + +------+ + | Care Floorman Name | Role | Phone | + [...] + + | 02/01/ | Telephone | [facility] | Frandy Teresa, | Imaging Only | | 2019 | | NEUROSURGERY [address] | DO [address] | | | | | [address] | [address] [place], [place] | | | | | [place], [place] | [address] | | | | | [address] | | | | | | [phone] | | | +--------+ + + + [...] [place] | | | | | | [address] | | | | | | | | +--------+---------+ + + + documented as of this encounter Visit Diagnoses Not on filedocumented in this encounter"
--- OUTSIDE RECORDS SUMMARY | ~2019-09-18 | XMS | Encounter Summary ---
Demographics + + + | Address | [address] | | | [place] [address] | + + + | Home Phone [...] [place] | | | | | [address] | | + + + + + Care Team Providers + +------+ + | Care Kit Planner Name | Role | Phone | [...] [place] | | | | | | [address] | | | | | | [phone] | | | +--------+ + + + [...] [place] | | | | | | [address] | | | | | | | | +--------+---------+ + + + documented as of this encounter Visit Diagnoses Not on filedocumented in this encounter"
--- OUTSIDE RECORDS SUMMARY | ~2019-09-18 | XMS | Encounter Summary ---
Demographics + + + | Address | [address] | | | [place] [address] | + + + | Home Phone [...] [place] | | | | | [address] | | + + + + + Care Team Providers + +------+ + | Care Bessemer Regulator Name | Role | Phone | + [...] + | 02/21/ | Refill | [facility] | Deon Gonzales | Medication Refill | | 2012 | | SLEEP DISORDER [address] | MD Laure[address] | | | | | [address] [place] [place] | [address] [place] | | | | | [place] [address] | [place] [address] | | | | | [phone] | [phone] | | | | | | | [...] [place] | | | | | | [address] | | | | | | | | +--------+---------+ + + + documented as of this encounter Visit Diagnoses + + | Diagnosis | + + | Obstructive sleep apnea (adult) (pediatric) - Primary | + + documented in this encounter"
--- OUTSIDE RECORDS SUMMARY | ~2019-09-18 | XMS | Encounter Summary ---
Demographics + + + | Address | [address] | | | [place] [address] | + + + | Home Phone [...] [place] | | | | | [address] | | + + + + + Care Team Providers + +------+ + | Care Reel Man Name | Role | Phone | [...] [place] | | | | | | [address] | | | | | | [phone] | | | +--------+ + + + [...] [place] | | | | | | [address] | | | | | | | | +--------+---------+ + + + documented as of this encounter Visit Diagnoses Not on filedocumented in this encounter"
--- OUTSIDE RECORDS SUMMARY | ~2019-09-18 | XMS | Encounter Summary ---
Demographics + + + | Address | [address] | | | [place] [address] | + + + | Home Phone [...] [place] | | | | | [address] | | + + + + + Care Team Providers + +------+ + | Care Parts Counter Associate Name | Role | Phone | [...] + | 01/02/ | Telephone | [facility] | Frandy Teresa, | Other (6m x-ray ) | | 2014 | | NEUROSURGERY [address] | DO [address] | | | | | [address] | [address] [place], [place] | | | | | [place], [place] | [id number] | | | | | [address] | | | | | | [phone] | | | +--------+ + + + [...] [place] | | | | | | [address] | | | | | | | | +--------+---------+ + + + documented as of this encounter Visit Diagnoses Not on filedocumented in this encounter"
--- OUTSIDE RECORDS SUMMARY | ~2019-09-18 | XMS | Encounter Summary ---
Demographics + + + | Address | [address] | | | [place] [address] | + + + | Home Phone [...] [place] | | | | | [address] | | + + + + + [...] + | 06/12/ | Office | [facility] | Chris Nicole, | Spondylisthesis | | 2013 | Visit | NEUROSURGERY [address] | PA-C [address] | (Primary Dx); | | | | [address] | [place], [place] | Radiculopathy of | | | | [place], [place] | [address] | leg; Lumbar spine | | | | [address] | | instability; Lumbar | | | | [phone] | | spondylosis; | | | | [...] rom the original. ZANE Castillo [address], [address] [place] [address] FAX: NEUROSURGERY HISTORY AND PHYSICAL [...] Take 15 mg by mouth nightl y. [place]-3 Fatty Acids (FISH OIL CONCENTRATE) 1000 MG [...] has no apparent deficits with short or fdc memory. CRANIAL NERVES: II: Acuity is intact. [...] Intrinsics 5 5 Ulnar Intrinsics 5 5 Senior Catering Sales Manager Strength 5 5 Hip Flexion 5 [...] [place] | | | | | | [address] | | | | | | | [...]
--- OUTSIDE RECORDS SUMMARY | ~2019-09-18 | XMS | Encounter Summary ---
Demographics + + + | Address | [address] | | | [place] [address] | + + + | Home Phone [...] [place] | | | | | [address] | | + + + + + Care Team Providers + +------+ + | Care Hand Violin Maker Name | Role | Phone | [...] + + | 08/09/ | Documentati | [facility] | Katharine Moncada, | Other (end of study) | | 2019 | on | CARDIOLOGY VERONA | Technologist | | | | | [address] | | | | | | [place], [place] | | | | | | [address] | | | | | | [phone] | | | +--------+ + + + [...] Technologist - 08/09/2019 11:59 PM PDT Cardiac Manager Supply Chain Planning Date of Event Monitor: 08/09/19 Referring Physician: [...] [place] | | | | | | [address] | | | | | | | | +--------+---------+ + + + documented as of this encounter Visit Diagnoses Not on filedocumented in this encounter"
--- OUTSIDE RECORDS SUMMARY | ~2019-09-18 | XMS | Encounter Summary ---
Demographics + + + | Address | [address] | | | [place] [address] | + + + | Home Phone [...] [place], [place] | | | | | [address] | | + + + + + [...] + | 02/16/ | Hospital | [facility] | | | | 1994 | Encounter | MED CTR LABORATORY | | | | | | [address] | | | | | | [place] | | | | | | [address] | | | | | | [phone] | | | +--------+ + + + [...] | | | | | [place] | | | | | | [address] | | | | | | | | +--------+---------+ + + + documented as of this encounter Visit Diagnoses Not on filedocumented in this encounter"
--- OUTSIDE RECORDS SUMMARY | ~2019-09-18 | XMS | Encounter Summary ---
Demographics + + + | Address | [address] | | | [place] [address] | + + + | Home Phone [...] [place] | | | | | [address] | | + + + + + [...] + + | 07/19/ | Office | [facility] | Desiree Peterson DO | Syncope, unspecified | | 2019 | Visit | CARDIOLOGY [place] | [address] | syncope type | | | | [address] | [place], [place] | (Primary Dx); | | | | [address] [place] [address] | [address] | Essential | | | | [place] | | hypertension; | | | | [address] | | Irregular heartbeat | | | | [phone] | | | +--------+---------+ + + + [...] DO - 07/19/2019 10:40 AM PDT [facility] Cardiology Cardiology Follow Up Note Reason [...] by mouth daily. Blood Glucose Monitoring Suppl (Run3D VERIO FLEX SYSTEM) w/Device KIT by Does not ap ply route. budesonide-formoterol (SYMBICORT) 160-4.5 MCG/ACT inhaler Inhale 2 puffs into the lungs 2 (two) times daily. Calcium Carbonate Antacid 1000 MG tablet Take 1,000 mg by mouth 3 (three) times daily. Cholecalciferol (VITAMIN D3) 01215 units CAPS Take by mouth once a [...] [place] | | | | | | [address] | | | | | | | [...]
--- OUTSIDE RECORDS SUMMARY | ~2019-09-18 | XMS | Encounter Summary ---
Demographics + + + | Address | [address] | | | [place] [address] | + + + | Home Phone [...] [place], [place] | | | | | [address] | | + + + + + Care Team Providers + +------+ + | Care Exercise Manager Name | Role | Phone | + +------+ + PCP | Unavailable | + +------+ + Encounter Details +--------+ + + + + | Date | Type | Department | Care Team | Description | +--------+ + + + + | 01/16/ | Hospital | [facility] | | | | 2002 | Encounter | MED CTR XRAY [address] | | | | | | [address] | | | | | | [place] [address] | | | | | | [phone] | | | +--------+ + + + [...] | | | | | [place] | | | | | | [address] | | | | | | | | +--------+---------+ + + + documented as of this encounter Visit Diagnoses Not on filedocumented in this encounter"
--- OUTSIDE RECORDS SUMMARY | ~2019-09-18 | XMS | Encounter Summary ---
Demographics + + + | Address | [address] | | | [place] [address] | + + + | Home Phone [...] [place], [place] | | | | | [address] | | + + + + + Care Team Providers + +------+ + | Care Treater Name | Role | Phone | + [...] [place] | | | | | | [address] | | | | | | [phone] | | | +--------+ + + + [...] | | | | | [place] | | | | | | [address] | | | | | | | | +--------+---------+ + + + documented as of this encounter Visit Diagnoses Not on filedocumented in this encounter"
--- OUTSIDE RECORDS SUMMARY | ~2019-09-18 | XMS | Encounter Summary ---
Demographics + + + | Address | [address] | | | [place] [address] | + + + | Home Phone [...] [place] | | | | | [address] | | + + + + + Care Team Providers + +------+ + | Care Cylinder Batcher Name | Role | Phone | + [...] + | 03/07/ | Telephone | [facility] | Katharine Cardona PA-C | Results | | 2014 | | [facility] | [address] [place] | | | | | [address] | [place] [address] | | | | | [place], [place] | [phone] | | | | | [address] | | | | | | [phone] | | | +--------+ + + + [...] [place] | | | | | | [address] | | | | | | | | +--------+---------+ + + + documented as of this encounter Visit Diagnoses Not on filedocumented in this encounter"
--- OUTSIDE RECORDS SUMMARY | ~2019-09-18 | XMS | Encounter Summary ---
Demographics + + + | Address | [address] | | | [place] [address] | + + + | Home Phone [...] [place] | | | | | [address] | | + + + + + Care Team Providers + +------+ + | Care Advanced Manufacturing Technician Name | Role | Phone [...] [place] | | | | | | [address] | | | | | | [phone] | | | +--------+ + + + [...] [place] | | | | | | [address] | | | | | | | | +--------+---------+ + + + documented as of this encounter Visit Diagnoses Not on filedocumented in this encounter"
--- OUTSIDE RECORDS SUMMARY | ~2019-09-18 | XMS | Encounter Summary ---
Demographics + + + | Address | [address] | | | [place] [address] | + + + | Home Phone [...] [place], [place] | | | | | [address] | | + + + + + Care Team Providers + +------+ + | Care Dampener Operator Name | Role | Phone | + +------+ + PCP | Unavailable | + +------+ + Encounter Details +--------+ + + + + | Date | Type | Department | Care Team | Description | +--------+ + + + + | 09/24/ | Hospital | [facility] | | | | 1993 | Encounter | MED CTR LABORATORY | | | | | | [address] | | | | | | [place] | | | | | | [address] | | | | | | [phone] | | | +--------+ + + + [...] | | | | | | [place] | | | | | | [address] | | | | | | | | +--------+---------+ + + + documented as of this encounter Visit Diagnoses Not on filedocumented in this encounter"
--- OUTSIDE RECORDS SUMMARY | ~2019-09-18 | XMS | Encounter Summary ---
Demographics + + + | Address | [address] | | | [place] [address] | + + + | Home Phone [...] [place] | | | | | [address] | | + + + + + Care Team Providers + +------+ + | Care Floor Polisher Name | Role | Phone | [...] + | 07/30/ | Telephone | [facility] | Ashley Chávez | Talia (Patient | | 2019 | | CARDIOLOGY GENESIS Abad, Interrelated Special Education Teacher | mariela ) | | | | [address] | | | | | | [place], [place] | | | | | | [address] | | | | | | [phone] | | | +--------+ + + + [...] [place] | | | | | | [address] | | | | | | | | +--------+---------+ + + + documented as of this encounter Visit Diagnoses Not on filedocumented in this encounter"
--- OUTSIDE RECORDS SUMMARY | ~2019-09-18 | XMS | Encounter Summary ---
Demographics + + + | Address | [address] | | | [place] [address] | + + + | Home Phone [...] [place] | | | | | [address] | | + + + + + Care Team Providers + +------+ + | Care Boat Motor Mechanic Name | Role | Phone | [...] [place] | | | | | | [address] | | | | | | [phone] | | | +--------+ + + + [...] [place] | | | | | | [address] | | | | | | | | +--------+---------+ + + + documented as of this encounter Visit Diagnoses Not on filedocumented in this encounter"
--- OUTSIDE RECORDS SUMMARY | ~2019-09-18 | XMS | Encounter Summary ---
Demographics + + + | Address | [address] | | | [place] [address] | + + + | Home Phone [...] [place] | | | | | [address] | | + + + + + Care Team Providers + +------+ + | Care Labor Relations Representative Name | Role | Phone [...] + | 07/29/ | Telephone | [facility] | Frandy Teresa, | Other (multiple | | 2013 | | NEUROSURGERY [address] | DO [address] | questions) | | | | [address] | [address] [place], [place] | | | | | [place], [place] | [address] | | | | | [address] | | | | | | [phone] | | | +--------+ + + + [...] | | | | | [place] | | | | | | [address] | | | | | | | | +--------+---------+ + + + documented as of this encounter Visit Diagnoses Not on filedocumented in this encounter"
--- OUTSIDE RECORDS SUMMARY | ~2019-09-18 | XMS | Encounter Summary ---
Demographics + + + | Address | [address] | | | [place] [address] | + + + | Home Phone [...] [place] | | | | | [address] | | + + + + + Care Team Providers + +------+ + | Care Wool Supplier Name | Role | Phone | [...] + + | 07/06/ | Emergency | [facility] | Yunior Sherman, | Chest pain, | | 2014 | | MED CTR EMERGENCY | MD [address] | unspecified chest | | | | CENTER [address] | [place], [place] | pain type (Primary | | | | [place], [place] | [address] | Dx) | | | | [address] | | | | | | [phone] | | | +--------+ + + + [...] sent through Care Everywhere.CHEST PAIN, NON CARDIAC (POLISH)documented in this encounter Medications at Time of [...] 0 | | | | (VITAMIN D-3) 172[address] | mouth Once a week. | | [...] | | | | | | | ([facility], [facility]IN [facility]) | | | | | | [...] + + + +---------+ + + | [place]-3 Fatty | Take 1,000 mg by | [...] [place] | | | | | | [address] | | | | | | | [...] [address] | [place] | [phone] | | [facility] | | [address] | | | - LABORATORY | | [...] [address] | [place] | [phone] | | [facility] | | [address] | | | - LABORATORY | | [...] | | | | | | [employer] | | | | | [...] + + | Performing | Address | City[facility]State[facility] | Phone Number | | Organization | | | | + + + + + | [facility] | [address] | [place] | [phone] | | [facility] | | [address] | | | - LABORATORY | | [...] | | MEDICAL | | | | mL/min/1.26h7Xcas than | | CENTER - | | [...] [address] | [place] | [phone] | | [facility] | | [address] | | | - LABORATORY | | [...] [address] | [place] | [phone] | | [facility] | | [address] | | | - LABORATORY | | [...] | | | | MD NAZARIO JON ([id number]) | | | | | | on [...]
--- OUTSIDE RECORDS SUMMARY | ~2019-09-18 | XMS | Encounter Summary ---
Demographics + + + | Address | [address] | | | [place] [address] | + + + | Home Phone [...] [place] | | | | | [address] | | + + + + + Care Team Providers + +------+ + | Care School Business Administrator Name | Role | Phone | [...] + | 07/08/ | Telephone | [facility] | Frandy Teresa, | Other (post op call | | 2013 | | NEUROSURGERY [address] | DO [address] | ) | | | | [address] | [address] [place], [place] | | | | | [place], [place] | [address] | | | | | [address] | | | | | | [phone] | | | +--------+ + + + [...] | | | | | [place] | | | | | | [address] | | | | | | | | +--------+---------+ + + + documented as of this encounter Visit Diagnoses Not on filedocumented in this encounter"
--- OUTSIDE RECORDS SUMMARY | ~2019-09-18 | XMS | Encounter Summary ---
Demographics + + + | Address | [address] | | | [place] [address] | + + + | Home Phone [...] [place] | | | | | [address] | | + + + + + Care Team Providers + +------+ + | Care Garment Form Assembler Name | Role | Phone | [...] + + | 06/28/ | Telephone | [facility] | Ashley Chávez | Talia (Patient | | 2019 | | CARDIOLOGY GENESIS Abad, Cafe Aide | called to cancel her | | | | [address] | | appointment) | | | | [place] | | | | | | [address] | | | | | | [phone] | | | +--------+ + + + [...] [place] | | | | | | [address] | | | | | | | | +--------+---------+ + + + documented as of this encounter Visit Diagnoses Not on filedocumented in this encounter"
--- OUTSIDE RECORDS SUMMARY | ~2019-09-18 | XMS | Encounter Summary ---
Demographics + + + | Address | [address] | | | [place] [address] | + + + | Home Phone [...] [place] | | | | | [address] | | + + + + + Care Team Providers + +------+ + | Care Ethics Manager Name | Role | Phone | + +------+ + | Adriano Patrick MD | PCP | | + +------+ + Encounter Details +--------+ + + + + | Date | Type | Department | Care Team | Description | +--------+ + + + + | 05/16/ | Orders Only | [facility] | Provider, | | | 2018 | | SYSTEM GENERIC OP | MD [address] | | | | | CONVERSION [address] | [address] | | | | | [address] [place], [place] | [place] [address] | | | | | [address] | | | | | | [phone] | | | +--------+ + + + [...] | | | | | [place], [place] | | | | | | [address] | | | | | | | | +--------+---------+ + + + documented as of this encounter Visit Diagnoses Not on filedocumented in this encounter"
--- OUTSIDE RECORDS SUMMARY | ~2019-09-18 | XMS | Encounter Summary ---
Demographics + + + | Address | [address] | | | [place] [address] | + + + | Home Phone [...] [place] | | | | | [address] | | + + + + + Care Team Providers + +------+ + | Care Truck Loader And Unloader Name | Role | Phone | + [...] [place] | | | | | | [address] | | | | | | [phone] | | | +--------+ + + + [...] [place] | | | | | | [address] | | | | | | | | +--------+---------+ + + + documented as of this encounter Visit Diagnoses Not on filedocumented in this encounter"
--- OUTSIDE RECORDS SUMMARY | ~2019-09-18 | XMS | Encounter Summary ---
Demographics + + + | Address | [address] | | | [place] [address] | + + + | Home Phone [...] [place] | | | | | [address] | | + + + + + Care Team Providers + +------+ + | Care Trading Analyst Name | Role | Phone | + +------+ + | Adriano Patrick MD | PCP | | + +------+ + Encounter Details +--------+ + + + + | Date | Type | Department | Care Team | Description | +--------+ + + + + | 06/10/ | Abstract | [facility] | Thierry Fry | | | 2014 | | MEDICINE [address] | MD Lisa [address] | | | | | [address] [place] | [address] [place] | | | | | [place] [address] | [address] | | | | | [phone] | | | +--------+ + + + [...] | | | | | [place] | | | | | | [address] | | | | | | | [...]
--- OUTSIDE RECORDS SUMMARY | ~2019-09-18 | XMS | Encounter Summary ---
Demographics + + + | Address | [address] | | | [place] [address] | + + + | Home Phone [...] [place], [place] | | | | | [address] | | + + + + + Care Team Providers + +------+ + | Care Artist Blacksmith Name | Role | Phone | + +------+ + PCP | Unavailable | + +------+ + Encounter Details +--------+ + + + + | Date | Type | Department | Care Team | Description | +--------+ + + + + | 12/06/ | Hospital | [facility] | | | | 1994 | Encounter | MED CTR LABORATORY | | | | | | [address] | | | | | | [place] | | | | | | [address] | | | | | | [phone] | | | +--------+ + + + [...] | | | | | [place] | | | | | | [address] | | | | | | | | +--------+---------+ + + + documented as of this encounter Visit Diagnoses Not on filedocumented in this encounter"
--- OUTSIDE RECORDS SUMMARY | ~2019-09-18 | XMS | Encounter Summary ---
Demographics + + + | Address | [address] | | | [place] [address] | + + + | Home Phone [...] [place] | | | | | [address] | | + + + + + Care Team Providers + +------+ + | Care Invoice Machine Operator Name | Role | Phone [...] [address] | [address] [place], [place] | (Primary Dx) | | | | [place], [place] | [address] | | | | | [address] | | | | | | [phone] | | | +--------+ + + + [...] [place] | | | | | | [address] | | | | | | | [...] + | MISCELLANEOUS LAB | | | [phone] | + +---------+ + + | MISCELANIOUS LAB | | | [phone] | + +---------+ + + documented in this encounter Visit Diagnoses + + | Diagnosis | + + | Status post lumbar spinal fusion - Primary Arthrodesis status | + + documented in this encounter"
--- OUTSIDE RECORDS SUMMARY | ~2019-09-18 | XMS | Encounter Summary ---
Demographics + + + | Address | [address] | | | [place] [address] | + + + | Home Phone [...] [place] | | | | | [address] | | + + + + + Care Team Providers + +------+ + | Care Trust Advisor Name | Role | Phone | [...] + + | 03/03/ | Telephone | [facility] | Baudilio Newman | Other (Results) | | 2014 | | NEUROLOGY LAURIE | MD Pollo Need updated | | | | | [address], | address | | | | | [address] [place] | | | | | | [place] [address] | | | | | | [phone] | | | +--------+ + + + [...] [place] | | | | | | [address] | | | | | | | | +--------+---------+ + + + documented as of this encounter Visit Diagnoses Not on filedocumented in this encounter"
--- OUTSIDE RECORDS SUMMARY | ~2019-09-18 | XMS | Encounter Summary ---
Demographics + + + | Address | [address] | | | [place] [address] | + + + | Home Phone [...] [place] | | | | | [address] | | + + + + + Care Team Providers + +------+ + | Care Observer Helper Name | Role | Phone | + +------+ + | Natalee Andersen NP | PCP | | + +------+ + Encounter Details +--------+ + + + + | Date | Type | Department | Care Team | Description | +--------+ + + + + | 06/25/ | Hospital | [facility] | Frandy Teresa, | Diabetes mellitus | | 2014 | Encounter | MED CTR OR INTRA OP | DO [address] | (HCC) (Primary Dx) | | | | [address] | [address] [place], [place] | | | | | [place], [place] | [address] | | | | | [address] | | | | | | [phone] | | | +--------+ + + + [...] + + + +---------+ + + | [place]-3 Fatty | Take 1,000 mg by | [...] [place] | | | | | | [id number] | | | | | | | [...] mL/min/1.73m2 | [facility] | | | [facility] | RATE,ESTIMATED | | MEDICAL | | | | mL/min/1.10t5Lglz than | | CENTER - | | [...] + | [facility] | [address] | [place], [place] | [phone] | | [facility] | | [address] | | | - LABORATORY | | | | + + + + + | [facility] | [address] | [place], [place] | | | [facility] | | [address] | | | - LABORATORY | | [...] + | [facility] | [address] | [place] | [phone] | | [facility] | | [address] | | | - LABORATORY | | | | + + + + + | [facility] | [address] | [place], [place] | | | [facility] | | [address] | | | - LABORATORY | | [...] [address] | [place] | [phone] | | [facility] | | [address] | | | - LABORATORY | | | | + + + + + | [facility] | [address] | [place] | | | [facility] | | [address] | | | - LABORATORY | | [...] | | [facility] | | [address] | | | - BLOOD BANK | [...] + | [facility] | [address] | [place] | [phone] | | [facility] | | [address] | | | - LABORATORY | | | | + + + + + | [facility] | [address] | [place], [place] | | | [facility] | | [address] | | | - LABORATORY | | [...]
--- OUTSIDE RECORDS SUMMARY | ~2019-09-18 | XMS | Encounter Summary ---
Demographics + + + | Address | [address] | | | [place] [address] | + + + | Home Phone [...] [place] | | | | | [address] | | + + + + + Care Team Providers + +------+ + | Care Shock Absorber Installer Name | Role | Phone | [...] [place] | | | | | | [address] | | | | | | [phone] | | | +--------+ + + + [...] [place] | | | | | | [address] | | | | | | | | +--------+---------+ + + + documented as of this encounter Visit Diagnoses Not on filedocumented in this encounter"
--- OUTSIDE RECORDS SUMMARY | ~2019-09-18 | XMS | Encounter Summary ---
Demographics + + + | Address | [address] | | | [place] [address] | + + + | Home Phone [...] [place], [place] | | | | | [address] | | + + + + + Care Team Providers + +------+ + | Care Coffee Shop Aide Name | Role | Phone | + +------+ + PCP | Unavailable | + +------+ + Encounter Details +--------+ + + + + | Date | Type | Department | Care Team | Description | +--------+ + + + + | 06/30/ | Hospital | [facility] | | | | 2000 | Encounter | MED CTR EMERGENCY | | | | | | [address] | | | | | | [place] | | | | | | [address] | | | | | | [phone] | | | +--------+ + + + [...] | | | | | [place] | | | | | | [address] | | | | | | | | +--------+---------+ + + + documented as of this encounter Visit Diagnoses Not on filedocumented in this encounter"
--- OUTSIDE RECORDS SUMMARY | ~2019-09-18 | XMS | Encounter Summary ---
Demographics + + + | Address | [address] | | | [place] [address] | + + + | Home Phone [...] [place] | | | | | [address] | | + + + + + [...] + | 02/27/ | Telephone | [facility] | Katharine Cardona PA-C | Appointment (New | | 2014 | | MEDICINE [address] | [address] | Patient) | | | | [address] [place] | [place] [address] | | | | | [place] [address] | [phone] | | | | | [phone] | | | +--------+ + + + [...] [place] | | | | | | [address] | | | | | | | | +--------+---------+ + + + documented as of this encounter Visit Diagnoses Not on filedocumented in this encounter"
--- OUTSIDE RECORDS SUMMARY | ~2019-09-18 | XMS | Encounter Summary ---
Demographics + + + | Address | [address] | | | [place] [address] | + + + | Home Phone [...] [place] | | | | | [address] | | + + + + + Care Team Providers + +------+ + | Care Aircraft Powertrain Repairer Name | Role | Phone | + +------+ + | Natalee Andersen NP | PCP | | + +------+ + Encounter Details +--------+ + + + + | Date | Type | Department | Care Team | Description | +--------+ + + + + | 06/25/ | Hospital | [facility] | Frandy Teresa, | Diabetes mellitus | | 2014 | Encounter | MED CTR OR INTRA OP | DO [address] | (HCC) (Primary Dx) | | | | [address] | [address] [place], [place] | | | | | [place], [place] | [address] | | | | | [address] | | | | | | [phone] | | | +--------+ + + + [...] + + + +---------+ + + | [place]-3 Fatty | Take 1,000 mg by | [...] [place] | | | | | | [id number] | | | | | | | [...] | | | | mg/dL | [facility] | | | | [...] | | MEDICAL | | | | mL/min/1.96x6Yudg than | | CENTER - | | [...] + | [facility] | [address] | [place], [place] | [phone] | | [facility] | | [address] | | | - LABORATORY | | | | + + + + + | [facility] | [address] | [place], [place] | | | [facility] | | [address] | | | - LABORATORY | | [...] + | [facility] | [address] | [place] | [phone] | | [facility] | | [address] | | | - LABORATORY | | | | + + + + + | [facility] | [address] | [place], [place] | | | [facility] | | [address] | | | - LABORATORY | | [...] [address] | [place] | [phone] | | [facility] | | [address] | | | - LABORATORY | | | | + + + + + | [facility] | [address] | [place] | | | [facility] | | [address] | | | - LABORATORY | | [...] | | [facility] | | [address] | | | - BLOOD BANK | [...] | + + + + + | [facility] | [address] | [place] | [phone] | | [facility] | | [address] | | | - LABORATORY | | | | + + + + + | [facility] | [address] | [place], [place] | | | [facility] | | [address] | | | - LABORATORY | | [...]
--- OUTSIDE RECORDS SUMMARY | ~2019-09-18 | XMS | Encounter Summary ---
Demographics + + + | Address | [address] | | | [place] [address] | + + + | Home Phone [...] [place], [place] | | | | | [address] | | + + + + + Care Team Providers + +------+ + | Care Mat Sewer Name | Role | Phone | + +------+ + PCP | Unavailable | + +------+ + Encounter Details +--------+ + + + + | Date | Type | Department | Care Team | Description | +--------+ + + + + | 05/23/ | Hospital | [facility] | | | | 1991 | Encounter | MED CTR XRAY [address] | | | | | | [address] | | | | | | [place] [address] | | | | | | [phone] | | | +--------+ + + + [...] | | | | | [place] | | | | | | [address] | | | | | | | | +--------+---------+ + + + documented as of this encounter Visit Diagnoses Not on filedocumented in this encounter"
--- OUTSIDE RECORDS SUMMARY | ~2019-09-18 | XMS | Encounter Summary ---
Demographics + + + | Address | [address] | | | [place] [address] | + + + | Home Phone [...] [place] | | | | | [address] | | + + + + + Care Team Providers + +------+ + | Care Liquor Grinding Mill Operator Name | Role | Phone | + +------+ + | Natalee Andersen NP | PCP | | + +------+ + Encounter Details +--------+ + + + + | Date | Type | Department | Care Team | Description | +--------+ + + + + | 05/02/ | Hospital | [facility] | Frandy Teresa, | Back pain | | 2014 | Encounter | MED CTR XRAY [address] | DO [address] | | | | | [place] | [place] [address] [place] | | | | | [place] [address] | [address] | | | | | [phone] | | | +--------+ + + + [...] | | | | | [place] | | | | | | [address] | | | | | | | [...] + | MISCELLANEOUS LAB | | | [phone] | + +---------+ + + | MISCELANIOUS LAB | | | [phone] | + +---------+ + + documented in this encounter Visit Diagnoses + + | Diagnosis | + + | Back pain Backache, unspecified | + + documented in this encounter"
--- OUTSIDE RECORDS SUMMARY | ~2019-09-18 | XMS | Encounter Summary ---
Demographics + + + | Address | [address] | | | [place] [address] | + + + | Home Phone [...] [place], [place] | | | | | [address] | | + + + + + Care Team Providers + +------+ + | Care Long Term Name | Role | Phone | + +------+ + PCP | Unavailable | + +------+ + Encounter Details +--------+ + + + + | Date | Type | Department | Care Team | Description | +--------+ + + + + | 12/24/ | Hospital | [facility] | | | | 1998 | Encounter | MED CTR XRAY [address] | | | | | | [address] | | | | | | [place] [address] | | | | | | [phone] | | | +--------+ + + + [...] | | | | | [place] | | | | | | [address] | | | | | | | | +--------+---------+ + + + documented as of this encounter Visit Diagnoses Not on filedocumented in this encounter"
--- OUTSIDE RECORDS SUMMARY | ~2019-09-18 | XMS | Encounter Summary ---
Demographics + + + | Address | [address] | | | [place] [address] | + + + | Home Phone [...] [place] | | | | | [address] | | + + + + + Care Team Providers + +------+ + | Care Rough And Trueing Machine Operator Name | Role | Phone [...] [address] | [address] [place], [place] | | | | | [place], [place] | [id number] | | | | | [address] | | | | | | [phone] | | | +--------+ + + + [...] | | | | | [place] | | | | | | [address] | | | | | | | | +--------+---------+ + + + documented as of this encounter Visit Diagnoses Not on filedocumented in this encounter"
--- OUTSIDE RECORDS SUMMARY | ~2019-09-18 | XMS | Encounter Summary ---
Demographics + + + | Address | [address] | | | [place] [address] | + + + | Home Phone [...] [place], [place] | | | | | [address] | | + + + + + Care Team Providers + +------+ + | Care Caseworker Intake Name | Role | Phone | + +------+ + PCP | Unavailable | + +------+ + Encounter Details +--------+ + + + + | Date | Type | Department | Care Team | Description | +--------+ + + + + | 03/11/ | [facility] | [facility] | Deon Gonzales | | | 2005 | Encounter | MED CTR SLEEP | MD [address] | | | | | [place] | [address] [place] | | | | | [place], [place] | [place] [address] | | | | | [address] | [phone] | | | | | [phone] | | | +--------+ + + + [...] [place] | | | | | | [address] | | | | | | | | +--------+---------+ + + + documented as of this encounter Visit Diagnoses Not on filedocumented in this encounter"
--- OUTSIDE RECORDS SUMMARY | ~2019-09-18 | XMS | Encounter Summary ---
Demographics + + + | Address | [address] | | | [place] [address] | + + + | Home Phone [...] [place] | | | | | [address] | | + + + + + Care Team Providers + +------+ + | Care Sample Book Maker Name | Role | Phone | + +------+ + | Basim Bolanos MD | PCP | | + +------+ + Encounter Details +--------+ + + + + | Date | Type | Department | Care Team | Description | +--------+ + + + + | 03/01/ | Abstract | [facility] [place] | [facility], | | | 2012 | | GASTROENTEROLOGY | FORTUNATO Thomas [address] | | | | | [address] [place] | [place], [address] | | | | | [address] [place], [place] | [place], [place] | | | | | [address] | [address] | | | | | [phone] | | | +--------+ + + + [...] [place] | | | | | | [address] | | | | | | | | +--------+---------+ + + + documented as of this encounter Visit Diagnoses Not on filedocumented in this encounter"
--- OUTSIDE RECORDS SUMMARY | ~2019-09-18 | XMS | Encounter Summary ---
Demographics + + + | Address | [address] | | | [place] [address] | + + + | Home Phone [...] [place] | | | | | [address] | | + + + + + Care Team Providers + +------+ + | Care Land Economist Name | Role | Phone | [...] [place] | | | | | | [address] | | | | | | [phone] | | | +--------+ + + + [...] [place] | | | | | | [address] | | | | | | | | +--------+---------+ + + + documented as of this encounter Visit Diagnoses Not on filedocumented in this encounter"
--- OUTSIDE RECORDS SUMMARY | ~2019-09-18 | XMS | Encounter Summary ---
Demographics + + + | Address | [address] | | | [place] [address] | + + + | Home Phone [...] [place] | | | | | [address] | | + + + + + Care Team Providers + +------+ + | Care French Comber Name | Role | Phone | + +------+ + PCP | Unavailable | + +------+ + Encounter Details +--------+ + + + + | Date | Type | Department | Care Team | Description | +--------+ + + + + | 04/27/ | Hospital | [facility] | Sage Garza MD | | | 2001 | Encounter | HOSPITAL EMERGENCY | | | | | | CENTER [address] | | | [address] [place], [place] | | | | | | [address] | | | | | | [phone] | | | +--------+ + + + [...] [place] | | | | | | [address] | | | | | | | | +--------+---------+ + + + documented as of this encounter Visit Diagnoses Not on filedocumented in this encounter"
--- OUTSIDE RECORDS SUMMARY | ~2019-09-18 | XMS | Encounter Summary ---
Demographics + + + | Address | [address] | | | [place] [address] | + + + | Home Phone [...] [place], [place] | | | | | [address] | | + + + + + Care Team Providers + +------+ + | Care Bulk Tank Driver Name | Role | Phone | + +------+ + PCP | Unavailable | + +------+ + Encounter Details +--------+ + + + + | Date | Type | Department | Care Team | Description | +--------+ + + + + | 02/16/ | Hospital | [facility] | | | | 1994 | Encounter | MED CTR LABORATORY | | | | | | [address] | | | | | | [place] | | | | | | [address] | | | | | | [phone] | | | +--------+ + + + [...] | | | | | [place] | | | | | | [address] | | | | | | | | +--------+---------+ + + + documented as of this encounter Visit Diagnoses Not on filedocumented in this encounter"
--- OUTSIDE RECORDS SUMMARY | ~2019-09-18 | XMS | Encounter Summary ---
Demographics + + + | Address | [address] | | | [place] [address] | + + + | Home Phone [...] [place] | | | | | [address] | | + + + + + Care Team Providers + +------+ + | Care Shoe Repairer Helper Name | Role | Phone [...] + | 08/26/ | Refill | [facility] | Frandy Teresa, | Medication Refill | | 2013 | | NEUROSURGERY [address] | DO [address] | | | | | [address] [address] | [address] [place], [place] | | | | | [place], [place] | [address] | | | | | [address] | | | | | | [phone] | | | +--------+--------+ + + + [...] | | | | | [place] | | | | | | [address] | | | | | | | | +--------+---------+ + + + documented as of this encounter Visit Diagnoses Not on filedocumented in this encounter"
--- OUTSIDE RECORDS SUMMARY | ~2019-09-18 | XMS | Encounter Summary ---
Demographics + + + | Address | [address] | | | [place] [address] | + + + | Home Phone [...] [place] | | | | | [address] | | + + + + + Care Team Providers + +------+ + | Care Doctor Assistant Name | Role | Phone | [...] [address] | [address] [place], [place] | | | | | [place], [place] | [address] | | | | | [address] | | | | | | [phone] | | | +--------+ + + + [...] [place] | | | | | | [address] | | | | | | | [...] + | MISCELLANEOUS LAB | | | [phone] | + +---------+ + + | MISCELANIOUS LAB | | | [phone] | + +---------+ + + documented in this encounter Visit Diagnoses + + | Diagnosis | + + | Back pain - Primary Backache, unspecified | + + documented in this encounter"
--- OUTSIDE RECORDS SUMMARY | ~2019-09-18 | XMS | Encounter Summary ---
Demographics + + + | Address | [address] | | | [place] [address] | + + + | Home Phone [...] [place] | | | | | [address] | | + + + + + Care Team Providers + +------+ + | Care Stone Belt Sander Name | Role | Phone [...] + + | 03/26/ | Telephone | [facility] | Thierry Fry | Medication Prior | | 2015 | | MEDICINE [facility] Daniel | MD Lisa [address] | Authorization | | | | [facility] | [facility] [place] | (Dexilant 60Mg) | | | | [place] [address] | [address] | | | | | [phone] | | | +--------+ + + + [...] [place] | | | | | | [address] | | | | | | | | +--------+---------+ + + + documented as of this encounter Visit Diagnoses Not on filedocumented in this encounter"
--- OUTSIDE RECORDS SUMMARY | ~2019-09-18 | XMS | Encounter Summary ---
Demographics + + + | Address | [address] | | | [place] [address] | + + + | Home Phone [...] [place], [place] | | | | | [address] | | + + + + + Care Team Providers + +------+ + | Care Seam Rubbing Machine Operator Name | Role | Phone | + +------+ + PCP | Unavailable | + +------+ + Encounter Details +--------+ + + + + | Date | Type | Department | Care Team | Description | +--------+ + + + + | 09/10/ | Hospital | [facility] | | | | 1992 | Encounter | MED CTR LABORATORY | | | | | | [address] | | | | | | [place] | | | | | | [address] | | | | | | [phone] | | | +--------+ + + + [...] | | | | | [place] | | | | | | [address] | | | | | | | | +--------+---------+ + + + documented as of this encounter Visit Diagnoses Not on filedocumented in this encounter"
--- OUTSIDE RECORDS SUMMARY | ~2019-09-18 | XMS | Encounter Summary ---
Demographics + + + | Address | [address] | | | [place] [address] | + + + | Home Phone [...] [place] | | | | | [address] | | + + + + + Care Team Providers + +------+ + | Care Supervisor Instrument Maintenance Name | Role | Phone | [...] + + | 08/15/ | Documentati | [facility] | Katharine Moncada, | Other (urgent | | 2019 | on | CARDIOLOGY [place] | Technologist | report) | | | | [address] | | | | | | [place] | | | | | | [address] | | | | | | [phone] | | | +--------+ + + + [...] [place] | | | | | | [address] | | | | | | | | +--------+---------+ + + + documented as of this encounter Visit Diagnoses Not on filedocumented in this encounter"
--- OUTSIDE RECORDS SUMMARY | ~2019-09-18 | XMS | Encounter Summary ---
Demographics + + + | Address | [address] | | | [place] [address] | + + + | Home Phone [...] [place] | | | | | [address] | | + + + + + Care Team Providers + +------+ + | Care Ebay Reseller Name | Role | Phone | + [...] + | 06/20/ | Telephone | [facility] | Frandy Teresa, | Other (surgery | | 2013 | | NEUROSURGERY [address] | DO [address] | reminder ) | | | | [address] | [address] [place], [place] | | | | | [place], [place] | [address] | | | | | [address] | | | | | | [phone] | | | +--------+ + + + [...] | | | | | [place] | | | | | | [address] | | | | | | | | +--------+---------+ + + + documented as of this encounter Visit Diagnoses Not on filedocumented in this encounter"
--- OUTSIDE RECORDS SUMMARY | ~2019-09-18 | XMS | Encounter Summary ---
Demographics + + + | Address | [address] | | | [place] [address] | + + + | Home Phone [...] [place] | | | | | [address] | | + + + + + Care Team Providers + +------+ + | Care Business Services Tech Name | Role | Phone | [...] [address] | [address] [place], [place] | | | | | [place], [place] | [id number] | | | | | [address] | | | | | | [phone] | | | +--------+ + + + [...] | | | | | [place] | | | | | | [address] | | | | | | | | +--------+---------+ + + + documented as of this encounter Visit Diagnoses Not on filedocumented in this encounter"
--- OUTSIDE RECORDS SUMMARY | ~2019-09-18 | XMS | Encounter Summary ---
Demographics + + + | Address | [address] | | | [place] [address] | + + + | Home Phone [...] [place], [place] | | | | | [address] | | + + + + + Care Team Providers + +------+ + | Care Cyber Defense Forensics Analyst Name | Role | Phone | + +------+ + PCP | Unavailable | + +------+ + Encounter Details +--------+ + + + + | Date | Type | Department | Care Team | Description | +--------+ + + + + | 06/23/ | Hospital | [facility] | | | | 2000 | Encounter | MED CTR GENERIC OP | | | | | | CONV DEPT [address] | | | | | | [place], | | | | | | [place] [address] | | | | | | [phone] | | | +--------+ + + + [...] | | | | | [place] | | | | | | [address] | | | | | | | | +--------+---------+ + + + documented as of this encounter Visit Diagnoses Not on filedocumented in this encounter"
--- OUTSIDE RECORDS SUMMARY | ~2019-09-18 | XMS | Encounter Summary ---
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 ) | | | | [place] | | | | | | [address] | | | | | | [phone] | | | +--------+ + + + [...] [place] | | | | | | [address] | | | | | | | | +--------+---------+ + + + documented as of this encounter Visit Diagnoses Not on filedocumented in this encounter"
--- OUTSIDE RECORDS SUMMARY | ~2019-09-18 | XMS | Encounter Summary ---
Demographics + + + | Address | [address] | | | [place] [address] | + + + | Home Phone [...] [place] | | | | | [address] | | + + + + + [...] + + | 06/27/ | Office | [facility] | Yecenia Richardson, | Hypertension, | | 2019 | Visit | CARDIOLOGY [place] | MD Nitin RODRIGUES | unspecified type | | | | [address] | [place], [place] | (Primary Dx); | | | | [facility] | [address] | Bradycardia | | | | [place] | | | | | | [address] | | | | | | [phone] | | | +--------+---------+ + + + [...] urgent basis. Had an appointment today in [facility]. She has been feeling dizzy as [...] Take by mouth. Blood Glucose Monitoring Suppl (FreeAgent VERIO FLEX SYSTEM) w/Device KIT by Does [...] mg by mouth Daily. Cholecalciferol (VITAMIN D-3) 54475 units CAPS Take 50,000 Units by mouth [...] tablet Take 10 mg by mouth nightly. [place]-3 Fatty Acids (FISH OIL CONCENTRATE) 1000 [...] | | | | | | [place] [facility] [place] | | | | | | [address] | | | | | | | [...]
--- OUTSIDE RECORDS SUMMARY | ~2019-09-18 | XMS | Encounter Summary ---
Demographics + + + | Address | [address] | | | [place] [address] | + + + | Home Phone [...] [place], [place] | | | | | [address] | | + + + + + Care Team Providers + +------+ + | Care Regroover Name | Role | Phone | + +------+ + PCP | Unavailable | + +------+ + Encounter Details +--------+ + + + + | Date | Type | Department | Care Team | Description | +--------+ + + + + | 12/27/ | Hospital | [facility] | | | | 1997 | Encounter | MED CTR EMERGENCY | | | | | | [address] | | | | | | [place] | | | | | | [address] | | | | | | [phone] | | | +--------+ + + + [...] | | | | | [place] | | | | | | [address] | | | | | | | | +--------+---------+ + + + documented as of this encounter Visit Diagnoses Not on filedocumented in this encounter"
--- OUTSIDE RECORDS SUMMARY | ~2019-09-18 | XMS | Encounter Summary ---
Demographics + + + | Address | [address] | | | [place] [address] | + + + | Home Phone [...] [place], [place] | | | | | [address] | | + + + + + Care Team Providers + +------+ + | Care Tobacco Wetter Name | Role | Phone | + +------+ + PCP | Unavailable | + +------+ + Encounter Details +--------+ + + + + | Date | Type | Department | Care Team | Description | +--------+ + + + + | 12/09/ | Hospital | [facility] | Serafin Bautista | | | 2012 | Encounter | MED CTR XRAY [address] | T, MD [address] | | | | | [place] | [address] [place], [place] | | | | | [place] [address] | [address] | | | | | [phone] | | | +--------+ + + + [...] [place] | | | | | | [address] | | | | | | | [...] At | + + + | [facility] Diagnostic Imaging Department | [facility] | | [address] | [facility] | | PROCEDURE NOTE EPIDURAL | [...] Manohar Martinez Conversion - 11/30/2013 4:45 PM [facility] | | Diagnostic Imaging Department | | [address] | | | | | [...] [place] | | | | | [facility] | | | | + +---------+ + + documented in this encounter Visit Diagnoses Not on filedocumented in this encounter"
--- OUTSIDE RECORDS SUMMARY | ~2019-09-18 | XMS | Encounter Summary ---
Demographics + + + | Address | [address] | | | [place] [address] | + + + | Home Phone [...] [place] | | | | | [address] | | + + + + + Care Team Providers + +------+ + | Care Almond Blancher Operator Name | Role | Phone | [...] + + | 08/30/ | Telephone | [facility] | Ashley Chávez | Other (Patient wants | | 2019 | | CARDIOLOGY [place] | Pollo, Sales Merchandise Associate | to take monitor | | | | [address] | | off. ) | | | | [address] | | | | | | [place] | | | | | | [address] | | | | | | [phone] | | | +--------+ + + + [...] [place] | | | | | | [address] | | | | | | | | +--------+---------+ + + + documented as of this encounter Visit Diagnoses Not on filedocumented in this encounter"
--- OUTSIDE RECORDS SUMMARY | ~2019-09-18 | XMS | Encounter Summary ---
Demographics + + + | Address | [address] | | | [place] [address] | + + + | Home Phone [...] [place] | | | | | [address] | | + + + + + Care Team Providers + +------+ + | Care Roto Rooter Operator Name | Role | Phone [...] | | | | | | | [address] | | | | | | | Phone: | | | | | | | [phone] | | | | | | | Fax: | | | | | | | [phone] | | +--------+ + + + + [...] [address] | [address] [place], [place] | lumbar fusion | | | | [place], [place] | [address] | | | | | [address] | | | | | | [phone] | | | +--------+---------+ + + + [...] [facility] [place] [address] [place] [address] FAX: NEUROSURGERY FOLLOW-UP CHIEF COMPLAINT: Chief Complaint [...] Laterality: N/A; Surgeon: Frandy castellanos DO; Location: [facility] MAIN OR CURRENT MEDICATIONS: Current [...] Take 15 mg by mouth nightl y. [place]-3 Fatty Acids (FISH OIL CONCENTRATE) 1000 MG [...] | | | | | [place], [place] | | | | | | [address] | | | | | | | [...]
--- OUTSIDE RECORDS SUMMARY | ~2019-09-18 | XMS | Encounter Summary ---
Demographics + + + | Address | [address] | | | [place] [address] | + + + | Home Phone [...] [place] | | | | | [address] | | + + + + + Care Team Providers + +------+ + | Care Travel Insurance Agent Name | Role | Phone [...] [place] | | | | | | [address] | | | | | | [phone] | | | +--------+ + + + [...] [place] | | | | | | [address] | | | | | | | | +--------+---------+ + + + documented as of this encounter Visit Diagnoses Not on filedocumented in this encounter"
--- OUTSIDE RECORDS SUMMARY | ~2019-09-18 | XMS | Encounter Summary ---
Demographics + + + | Address | [address] | | | [place] [address] | + + + | Home Phone [...] [place] | | | | | [address] | | + + + + + Care Team Providers + +------+ + | Care Front Counter Attendant Name | Role | Phone | [...] | | | | | | [place] [address] | | | | | | [phone] | | | | | | | [...] in | | | | | | [place] with a | | | | | [...] [facility] | | | | | | [facility] | | | | | | Laboratory, [place], | | | | | | [place], [...] by | | | | | | hqofzhpjCzc-Wxy-F: | | | | | | Increased [...] istryMHC-1: | | | | | | [id number] stain | | | | | | [...] + + + + | [facility] | [address] | [place] [address] | | | PATHOLOGY | [place] | | | + + + + + documented in this encounter Visit Diagnoses Not on filedocumented in this encounter
--- OUTSIDE RECORDS SUMMARY | ~2019-09-18 | XMS | Encounter Summary ---
Demographics + + + | Address | [address] | | | [place] [address] | + + + | Home Phone [...] [place] | | | | | [address] | | + + + + + Care Team Providers + +------+ + | Care Cotton Inspector Name | Role | Phone | [...] | | | | | [address] | [place], [place] | | | | | [place], [place] | [address] | | | | | [address] | | | | | | [phone] | | | +--------+ + + + [...] [place] | | | | | | [address] | | | | | | | | +--------+---------+ + + + documented as of this encounter Visit Diagnoses Not on filedocumented in this encounter"
--- OUTSIDE RECORDS SUMMARY | ~2019-09-18 | XMS | Encounter Summary ---
Demographics + + + | Address | [address] | | | [place] [address] | + + + | Home Phone [...] [place] | | | | | [address] | | + + + + + Care Team Providers + +------+ + | Care Lead Miner Blasting Name | Role | Phone | + [...] | | | [facility] | [address] [place], [place] | | | | | [address] [place] | [address] | | | | | [place] [address] | | | | | | [phone] | | | +--------+ + + + [...] [place] | | | | | | [address] | | | | | | | | +--------+---------+ + + + documented as of this encounter Visit Diagnoses Not on filedocumented in this encounter"
--- OUTSIDE RECORDS SUMMARY | ~2019-09-18 | XMS | Encounter Summary ---
Demographics + + + | Address | [address] | | | [place] [address] | + + + | Home Phone [...] [place] | | | | | [address] | | + + + + + Care Team Providers + +------+ + | Care Laboratory Technologist Name | Role | Phone [...] [place] | | | | | | [address] | | | | | | [phone] | | | +--------+ + + + [...] [place] | | | | | | [address] | | | | | | | | +--------+---------+ + + + documented as of this encounter Visit Diagnoses Not on filedocumented in this encounter"
--- OUTSIDE RECORDS SUMMARY | ~2019-09-18 | XMS | Encounter Summary ---
Demographics + + + | Address | [address] | | | [place] [address] | + + + | Home Phone [...] [place] | | | | | [address] | | + + + + + Care Team Providers + +------+ + | Care Senior Qualitative Researcher Name | Role | Phone | [...] + + | 08/14/ | Documentati | [facility] | Katharine Moncada, | Other (urgent | | 2019 | on | CARDIOLOGY [place] | Technologist | report) | | | | [address] | | | | | | [place] | | | | | | [address] | | | | | | [phone] | | | +--------+ + + + [...] [place] | | | | | | [address] | | | | | | | | +--------+---------+ + + + documented as of this encounter Visit Diagnoses Not on filedocumented in this encounter"
--- OUTSIDE RECORDS SUMMARY | ~2019-09-18 | XMS | Encounter Summary ---
Demographics + + + | Address | [address] | | | [place] [address] | + + + | Home Phone [...] [place] | | | | | [address] | | + + + + + Care Team Providers + +------+ + | Care Steward/Stewardess Banquet Name | Role | Phone | + [...] + + | 03/04/ | Telephone | [facility] | Baudilio Newman | Other (Plavix) | | 2014 | | NEUROLOGY LAURIE | MD Pollo Need updated | | | | | [address], | address | | | | | [address] [place] | | | | | | [place] [address] | | | | | | [phone] | | | +--------+ + + + [...] [place] | | | | | | [address] | | | | | | | | +--------+---------+ + + + documented as of this encounter Visit Diagnoses Not on filedocumented in this encounter"
--- OUTSIDE RECORDS SUMMARY | ~2019-09-18 | XMS | Encounter Summary ---
Demographics + + + | Address | [address] | | | [place] [address] | + + + | Home Phone [...] [place] | | | | | [address] | | + + + + + Care Team Providers + +------+ + | Care Public Relations Consultant Name | Role | Phone | + +------+ + PCP | Unavailable | + +------+ + Encounter Details +--------+ + + + + | Date | Type | Department | Care Team | Description | +--------+ + + + + | 07/03/ | Office | General Internal | Note, Outpatient | Progress Note | | 1996 | Visit-Trans | Medicine [address] | Clinic | | | | isabelle | [address] | | | | | | Mailcode: L475 | | | | | | Outpatient Clinic | | | | | | [address] | | | | | | [place], [place] | | | | | | [address] | | | | | | [phone] | | | +--------+ + + + [...] as of this encounter Progress Notes Interface, Glazing Department Supervisor In - 12/11/2006 5:03 AM [facility] DATE: 07/03/97 INFECTIOUS DISEASE [...]
--- OUTSIDE RECORDS SUMMARY | ~2019-09-18 | XMS | Clinical Summary ---
Demographics + + + | Address | [address] | | | [place] [address] | + + + | Home Phone [...] Author | [facility] (Historical as of | | | 06-09-19) | + + + | Organization | [facility] (Historical as of | | | [...] Team Providers + +------+ + | Care Typewriter Assembly And Parts Inspector Name | Role | [...] | | Activ | | (VITAMIN D3) [id number] | a week. | | | | [...] + | T2DM (type 2 diabetes mellitus) ([facility]) | 04/13/2013 | + + + Immunizations [...] +------+-------+ + | MEDICARE | MEDICA | [id number] | | | [address] | | | RE | | | | [place] [address] | | | IP-OP | | | [...] Self | [birth year] | Home: | [address] | | | al/Fam | | 1955 | [phone] | [address] [place] | | | [place] | | | [phone] | [phone] | + +--------+ +--------+ + +
--- OUTSIDE RECORDS SUMMARY | ~2019-09-18 | XMS | Encounter Summary ---
Demographics + + + | Address | [address] | | | [place] [address] | + + + | Home Phone [...] [place], [place] | | | | | [address] | | + + + + + Care Team Providers + +------+ + | Care Assistant Gm Of Content & Delivery Name | Role | Phone | + +------+ + PCP | Unavailable | + +------+ + Encounter Details +--------+ + + + + | Date | Type | Department | Care Team | Description | +--------+ + + + + | 07/23/ | Hospital | [facility] | | | | 1992 - | Encounter | MED CTR GENERIC PSY | | | | | | CONV DEPT [address] | | | | 07/28/ | | [place], | | | | 1992 | | [place] [address] | | | | | | [phone] | | | +--------+ + + + [...] [place] | | | | | | [address] | | | | | | | | +--------+---------+ + + + documented as of this encounter Visit Diagnoses Not on filedocumented in this encounter"
--- OUTSIDE RECORDS SUMMARY | ~2019-09-18 | XMS | Encounter Summary ---
Demographics + + + | Address | [address] | | | [place] [address] | + + + | Home Phone [...] [place] | | | | | [address] | | + + + + + Care Team Providers + +------+ + | Care Linux Consultant Name | Role | Phone | [...] [place] | | | | | | [address] | | | | | | [phone] | | | +--------+ + + + [...] [place] | | | | | | [address] | | | | | | | | +--------+---------+ + + + documented as of this encounter Visit Diagnoses Not on filedocumented in this encounter"
--- OUTSIDE RECORDS SUMMARY | ~2019-09-18 | XMS | Encounter Summary ---
Demographics + + + | Address | [address] | | | [place] [address] | + + + | Home Phone [...] [place] | | | | | [address] | | + + + + + Care Team Providers + +------+ + | Care State Assessed Properties Director Name | Role | Phone | [...] | | | spondylolist | | [address] | | | | | hesis | | [place], | | | | | Spinal | | [place] [address] | | | | | stenosis, | | Phone: | | | | | lumbar | | [phone] | | | | | region, | | Fax: | | | | | without | | [phone] | | | | | neurogenic | [...] | 07/02/ | Hospital | [facility] | Frandy Teresa, | Spinal stenosis, | | 2013 | Encounter | MED CTR XRAY [address] | DO [address] | lumbar region, | | | | [place] | [address] [place], [place] | without neurogenic | | | | [place] [address] | [address] | claudication | | | | [phone] | | (Primary Dx) | +--------+ + [...] + + + +---------+ + + | [place]-3 Fatty | Take 1,000 mg by [...] [place] | | | | | | [address] | | | | | | | [...]
--- OUTSIDE RECORDS SUMMARY | ~2019-09-18 | XMS | Encounter Summary ---
Demographics + + + | Address | [address] | | | [place] [address] | + + + | Home Phone [...] [place] | | | | | [address] | | + + + + + Care Team Providers + +------+ + | Care Material Handler Loader Name | Role | Phone | + +------+ + | Natalee Andersen NP | PCP | | + +------+ + Encounter Details +--------+ + + + + | Date | Type | Department | Care Team | Description | +--------+ + + + + | 09/27/ | Hospital | [facility] | Frandy Teresa, | Lumbar spondylosis; | | 2013 | Encounter | MED CTR XRAY [address] | DO [address] | S/P lumbar fusion | | | | [place] | [address] [place], [place] | | | | | [place] [address] | [address] | | | | | [phone] | | | +--------+ + + + [...] + + + +---------+ + + | [place]-3 Fatty | Take 1,000 mg by | [...] [place] | | | | | | [address] | | | | | | | [...] + | MISCELLANEOUS LAB | | | [phone] | + +---------+ + + | MISCELANIOUS LAB | | | [phone] | + +---------+ + + documented in this encounter Visit Diagnoses + + | Diagnosis | + + | Lumbar spondylosis Lumbosacral spondylosis without myelopathy | + + | S/P lumbar fusion Arthrodesis status | + + documented in this encounter"
--- OUTSIDE RECORDS SUMMARY | ~2019-09-18 | XMS | Encounter Summary ---
Demographics + + + | Address | [address] | | | [place] [address] | + + + | Home Phone [...] [place] | | | | | [address] | | + + + + + Care Team Providers + +------+ + | Care Clinical Orthoptist Name | Role | Phone | + [...] + | 08/09/ | Documentati | [facility] | aKtharine Moncada, | Other (end of study) | | 2019 | on | CARDIOLOGY [place] | Technologist | | | | | [address] | | | | | | [place], [place] | | | | | | [address] | | | | | | [phone] | | | +--------+ + + + [...] Technologist - 08/09/2019 11:59 PM PDT Cardiac Chef Kitchen Manager Date of Event Monitor: 08/09/19 Referring [...] [place] | | | | | | [address] | | | | | | | | +--------+---------+ + + + documented as of this encounter Visit Diagnoses Not on filedocumented in this encounter"
--- OUTSIDE RECORDS SUMMARY | ~2019-09-18 | XMS | Encounter Summary ---
Demographics + + + | Address | [address] | | | [place] [address] | + + + | Home Phone [...] [place] | | | | | [address] | | + + + + + Care Team Providers + +------+ + | Care Java Jsf Developer Name | Role | Phone | [...] | [address] [place] | [place], [address] | | | | | [address] [place], [place] | [place], [place] | | | | | [address] | [address] | | | | | [phone] | | | +--------+ + + + [...] | | | | | [place] | | | | | | [address] | | | | | | | | +--------+---------+ + + + documented as of this encounter Visit Diagnoses Not on filedocumented in this encounter"
--- OUTSIDE RECORDS SUMMARY | ~2019-09-18 | XMS | Encounter Summary ---
Demographics + + + | Address | [address] | | | [place] [address] | + + + | Home Phone [...] [place], [place] | | | | | [address] | | + + + + + Care Team Providers + +------+ + | Care Fire Extinguisher Repairer Inspector Name | Role | Phone | + +------+ + PCP | Unavailable | + +------+ + Encounter Details +--------+ + + + + | Date | Type | Department | Care Team | Description | +--------+ + + + + | 10/29/ | Hospital | [facility] | | | | 1994 | Encounter | MED CTR LABORATORY | | | | | | [address] | | | | | | [place] | | | | | | [address] | | | | | | [phone] | | | +--------+ + + + [...] | | | | | [place] | | | | | | [id number] | | | | | | | | +--------+---------+ + + + documented as of this encounter Visit Diagnoses Not on filedocumented in this encounter"
--- OUTSIDE RECORDS SUMMARY | ~2019-09-18 | XMS | Encounter Summary ---
Demographics + + + | Address | [address] | | | [place] [address] | + + + | Home Phone [...] [place] | | | | | [address] | | + + + + + Care Team Providers + +------+ + | Care Mold Yard Worker Name | Role | Phone [...] + + | 04/30/ | Office | [facility] | Russell Alfaro PA | ROGERS on CPAP (Primary | | 2015 | Visit | SLEEP DISORDER [address] | [address] | Dx) | | | | [address] | [place] | | | | | [place] [address] | [address] | | | | | [phone] | | | +--------+---------+ + + + [...] Insomnia Severity Index Insomnia Severity Index 13 [place] Sleepiness Scale Sitting and reading 3 Watching [...] nasal obtained from: [facility] [place] pressure: 11-20 cm Median: 12.1 cm 95%: [...] appro priate paperwork. Thirty minutes were spent [id number], with the majority of time spent i [...] | | | | | [place], [place] | | | | | | [address] | | | | | | | | +--------+---------+ + + + documented as of this encounter Visit Diagnoses + + | Diagnosis | + + | ROGERS on CPAP - Primary Obstructive sleep apnea (adult) (pediatric) | + + documented in this encounter"
--- OUTSIDE RECORDS SUMMARY | ~2019-09-18 | XMS | Clinical Summary ---
Demographics + + + | Address | [address] | | | [place] [address] | + + + | Home Phone [...] [place] | | | | | [address] | | + + + + + Care Team Providers + +------+ + | Care Shop Welder Name | Role | Phone | + +------+ + PCP | Unavailable | + +------+ + Source Comments EDWARD is fully live on both [facility] and [facility] InPatient[facility] Allergies Not on File Medications [...] | MEDICA | xxxxxxxxxx | 02/22/20 | [phone] | [address] | Medica | | | RE A & | | 15-Pre | 1 | [address] | re | | | B | | sent | | [place] | | | | | | | | [address] | | + +--------+ +--------+ + +--------+ + +--------+ +--------+ + + | Guarantor Name | Accoun | Relation to | Date | Phone | Billing Address | | | t Type | Patient | of | | | | | | | | | | + +--------+ +--------+ + + | CIDNY ARNDT | Person | Self | [birth year] | [address] | | | al/Fam | | 1955 | [phone] | [address] [place] | | | [place] | | | 5 (Home) | [address] | + +--------+ +--------+ + +"
--- OUTSIDE RECORDS SUMMARY | ~2019-09-18 | XMS | Encounter Summary ---
Demographics + + + | Address | [address] | | | [place] [address] | + + + | Home Phone [...] [place] | | | | | [address] | | + + + + + Care Team Providers + +------+ + | Care Drafter Refrigeration Name | Role | Phone | + [...] + + | 08/16/ | Documentati | [facility] | Katharine Moncada, | Other (urgent | | 2019 | on | CARDIOLOGY [place] | Technologist | report) | | | | [address] | | | | | | [place] | | | | | | [address] | | | | | | [phone] | | | +--------+ + + + [...] [place] | | | | | | [address] | | | | | | | | +--------+---------+ + + + documented as of this encounter Visit Diagnoses Not on filedocumented in this encounter"
--- OUTSIDE RECORDS SUMMARY | ~2019-09-18 | XMS | Encounter Summary ---
Demographics + + + | Address | [address] | | | [place] [address] | + + + | Home Phone [...] [place] | | | | | [address] | | + + + + + Care Team Providers + +------+ + | Care Harvest Field Ticketer Name | Role | Phone | + [...] [address] | [address] [place], [place] | | | | | [place], [place] | [address] | | | | | [address] | | | | | | [phone] | | | +--------+ + + + [...] [place] | | | | | | [address] | | | | | | | [...] + | MISCELLANEOUS LAB | | | [phone] | + +---------+ + + | MISCELANIOUS LAB | | | [phone] | + +---------+ + + documented in this encounter Visit Diagnoses + + | Diagnosis | + + | Back pain - Primary Backache, unspecified | + + documented in this encounter"
--- OUTSIDE RECORDS SUMMARY | ~2019-09-18 | XMS | Encounter Summary ---
Demographics + + + | Address | [address] | | | [place] [address] | + + + | Home Phone [...] [place], [place] | | | | | [address] | | + + + + + Care Team Providers + +------+ + | Care Application Integration Architect Name | Role | Phone | + +------+ + PCP | Unavailable | + +------+ + Encounter Details +--------+ + + + + | Date | Type | Department | Care Team | Description | +--------+ + + + + | 04/01/ | Hospital | [facility] | | | | 1998 | Encounter | MED CTR XRAY [address] | | | | | | [place] | | | | | | [place] [address] | | | | | | [phone] | | | +--------+ + + + [...] | | | | [place] | | | | | | [address] | | | | | | | | +--------+---------+ + + + documented as of this encounter Visit Diagnoses Not on filedocumented in this encounter"
--- OUTSIDE RECORDS SUMMARY | ~2019-09-18 | XMS | Encounter Summary ---
Demographics + + + | Address | [address] | | | [place] [address] | + + + | Home Phone [...] [place] | | | | | [address] | | + + + + + Care Team Providers + +------+ + | Care Heel Slugger Name | Role | Phone | + [...] + + | 02/26/ | Emergency | [facility] | Avery, | CVA (cerebral | | 2015 | | MED CTR EMERGENCY | Davey Simons MD [address] | vascular accident) | | | | CENTER [address] | [address] [facility] | ([facility]) (Primary Dx) | | | | [place], [place] | [place] [address] | | | | | [address] | [phone] | | | | | [phone] | | | +--------+ + + + [...] + + + +---------+ + + | [place]-3 Fatty | Take 1,000 mg by | [...] | | | | | [place] | | | | | | [address] | | | | | | | [...] | | MEDICAL | | | | mL/min/1.87v6Lyly than | | CENTER - | | [...] | 9.1 | 8.3 - 10.5 | [facility] | | | | | mg/dL | [facility] | | | | | | MEDICAL | | | | | | CENTER - | | | | | | LABORATORY | | + + + + + + | Albumin | 3.7 | 3.2 - 5.0 g/dL | [facility] | | | | | | [address] | [place] | [phone] | | [facility] | | [address] | | | - LABORATORY | | [...] [address] | [place] | [phone] | | [facility] | | [address] | | | - LABORATORY | | [...] | ---- | | | 02/26/2015 13:10 [facility] | | | Emergency -numbness/facial droop 02/26/2015 08:15 [facility] | | | [facility] 02/19/2015 | | [...] status 02/06/2015 10:46 | | | [facility] | | | [...] ------ | | | --------- [address] | | | [facility] [address] [facility] [address] | | | [facility] 7 0 Total | | | Note: Visits indicate total known visits. Medicaid [place] Dx are the | | | number of primary diagnoses on the [facility]'s non-emergent dx list. | | [...]
--- OUTSIDE RECORDS SUMMARY | ~2019-09-18 | XMS | Encounter Summary ---
Demographics + + + | Address | [address] | | | [place] [address] | + + + | Home Phone [...] [place], [place] | | | | | [address] | | + + + + + Care Team Providers + +------+ + | Care Partner Name | Role | Phone | + +------+ + PCP | Unavailable | + +------+ + Encounter Details +--------+ + + + + | Date | Type | Department | Care Team | Description | +--------+ + + + + | 03/26/ | Hospital | [facility] | | | | 2001 | Encounter | MED CTR LABORATORY | | | | | | [address] [place] [address] | | | | | | [place] | | | | | | [address] | | | | | | [phone] | | | +--------+ + + + [...] | | | | | [place] | | | | | | [address] | | | | | | | | +--------+---------+ + + + documented as of this encounter Visit Diagnoses Not on filedocumented in this encounter"
--- OUTSIDE RECORDS SUMMARY | ~2019-09-18 | XMS | Encounter Summary ---
Demographics + + + | Address | [address] | | | [place] [address] | + + + | Home Phone [...] [place] | | | | | [address] | | + + + + + Care Team Providers + +------+ + | Care Manufacturing Millwright Name | Role | Phone | [...] | | | | | mellitus, | [address] | [place] | | | | | controlled | Phone: | [address] | | | | | (HCC) | [phone] | Phone: | | | | | History of | Fax: | [phone] | | | | | gastric | [phone] | Fax: | | | | | restrictive | | [phone] | | | | | surgery | [...] | | hypertension | [address] | | | | | Lumbar | AVE [place] | [address] | | | | | radiculopath | [place], [place] | AVE | | | | | y Type 2 | [address] | [place] | | | | | diabetes | Phone: | [address] | | | | | mellitus, | [phone] | Phone: | | | | | controlled | Fax: | [phone] | | | | | (HCC) | [phone] | Fax: | | | | | Obesity, | | [phone] | | | | | Class III, [...] | | FORTUNATO & Katharine BUCIO in [place]. | + + + | Other | [...] MEDICINE [address] | [address] [facility] | to acquired atrophy | | | | Street [place] | [place] [address] | of thyroid (Primary | | | | [place] [address] | [phone] | Dx); Essential | | | | [phone] | | hypertension; Iron | | | [...] Stroke | | | | | | ([facility]); Environmental | | | | [...] | | | | obesity) ([facility]); | | | | | | Type 2 diabetes | | | | | | mellitus, controlled | | | | | | ([facility]); Preventative | | | | [...] t be different from the original. Ask [facility] if they think it might be helpful [...] Cont your meds as prescribed. F/U with [facility] as scheduled Neuropathy Continue gabapentin. May consider increase if pain is not controlled. May benefit from switching from Paxil to one of the SNRIs or TCAs for analgesic effects, holly manju, she is doing so well on her current regimen it may not be worth making any changes an d find alternate ways to deal with the pain. Would be worth discussing with [facility] Psych Back Pain Will refer to water therapy (aqua fitness) at [facility] as request ed. ROGERS [...] Colonoscopy procedures 4. Schizoaffective disorder, bipolar type ([facility]) 5. Neuropathy Vitamin B-12 6. BACK PAIN, LUMBAR, WITH RADICULOPATHY Ambulatory referral to Physical Therapy 7. ROGERS on CPAP 8. Stroke ([facility]) 9. Environmental and seasonal allergies fluticasone (FLONASE) 50 mcg/nasal spray 10. Gastroesophageal reflux disease without esophagitis dexlansoprazole (DEXILANT) 60 mg D R capsule 11. History of gastric restrictive surgery Vitamin D, 25-Hydroxy Nutrition Services - External - AMB Referral 12. Obesity, Class III, BMI 40-49.9 (morbid obesity) ([facility]) Ambulatory referral to Physical Therapy Nutrition Services - External - AMB Referral 13. Type 2 diabetes mellitus, controlled ([facility]) Ambulatory referral to Physical Therapy [...] Cont your meds as prescribed. F/U with [facility] as scheduled Neuropathy Continue gabapentin. May consider [...] the pain. Would be worth discussing with [facility] professional. Back Pain Will refer to water therapy (aqua fitness) at [facility] as request ed. Cont home exercise, [...] plan. The above note was dictated using [employer] voice recognition software. It may have not been proofread in entirety. Minor errors in grammar may occur. CHIEF COMPLAINT Chief Complaint Patient presents with [facility] Pres[facility] to establish care. Former patient of [facility] in [place]. Other Possible stroke January 2015. Is now [...] auditory, at 36. 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 She is now very well controlled on Saphris, Depakote, and Paxi l. She is followed by [facility] in [place]. She has DM2 that is well controlled [...] worked up by steve rowe, Dr [place], [place]. More recently, she presented to ED with [...] Laterality: N/A; Surgeon: Frandy castellanos DO; Location: [facility] MAIN OR SOCIAL HISTORY History [...] mg by mouth Daily. Cholecalciferol (VITAMIN D-3) 06276 units CAPS Oral Take 50,000 Units by [...] Oral Take 10 mg by mouth nightly. [place]-3 Fatty Acids (FISH OIL CONCENTRATE) 1000 MG [...] [place] | | | | | | [id number] | | | | | | | [...] | | | | | | controlled ([facility]) | | | | | | Obesity, Class III, | | | | | | BMI 40-49.9 (morbid | | | | | | obesity) ([facility]) | | + + +--------+ + + | Nutrition Services - | Outpatient | Routin | Iron deficiency | Ordered: 03/06/2015 | | External - AMB | Referral | e | anemia Type 2 | | | Referral | | | diabetes mellitus, | | | | | | controlled ([facility]) | | | | | | History of gastric | | | | | | restrictive surgery | | | | | | Obesity, Class III, | | | | | | BMI 40-49.9 (morbid | | | | | | obesity) ([facility]) | | + + +--------+ [...] | 0.66 | 0.60 - 1.30 | [facility] | | | | | mg/dL [...] mL/min/1.73m2 | [facility] | | | [place] | RATE,ESTIMATED | | MEDICAL | | | | mL/min/1.31f9Oeyf than | | CENTER - | | [...] [address] | [place] | [phone] | | [facility] | | [address] | | | - LABORATORY | | [...] + | Type 2 diabetes mellitus, controlled ([facility]) Type II or unspecified type diabetes | | mellitus without mention of complication, not stated as uncontrolled | + + | Preventative health care Routine general medical examination at a health care | | facility | + + documented in this encounter
--- OUTSIDE RECORDS SUMMARY | ~2019-09-18 | XMS | Encounter Summary ---
Demographics + + + | Address | [address] | | | [place] [address] | + + + | Home Phone [...] [place] | | | | | [address] | | + + + + + Care Team Providers + +------+ + | Care Well Drill Operator Rotary Drill Name | Role | Phone | + [...] + + | 07/24/ | Telephone | [facility] | Ashley Chávez | Other (Patient is | | 2019 | | CARDIOLOGY [place] Abad, Recovery Coordinator | worried about paying | | | | [address] | | for monitor. ) | | | | [place] | | | | | | [address] | | | | | | [phone] | | | +--------+ + + + [...] [place] | | | | | | [address] | | | | | | | | +--------+---------+ + + + documented as of this encounter Visit Diagnoses Not on filedocumented in this encounter"
--- OUTSIDE RECORDS SUMMARY | ~2019-09-18 | XMS | Encounter Summary ---
Demographics + + + | Address | [address] | | | [place] [address] | + + + | Home Phone [...] [place] | | | | | [address] | | + + + + + Care Team Providers + +------+ + | Care Lithographing Machine Operator Name | Role | Phone | + +------+ + | Thierry Fry MD | PCP | | + +------+ + Encounter Details +--------+ + + + + | Date | Type | Department | Care Team | Description | +--------+ + + + + | 03/06/ | Hospital | [facility] | Katharine Cardona PA-C | Essential | | 2015 | Encounter | MED CTR LABORATORY | [address] | hypertension | | | | [address] [place] | [place] [address] | | | | | [place], [place] | [phone] | | | | | [address] | | | | | | [phone] | | | +--------+ + + + [...] 0 | | | | (VITAMIN D-3) [address] | mouth Once a week. | | [...] + + + +---------+ + + | [place]-3 Fatty | Take 1,000 mg by | 60 each | 5 | 03/09/20 | | | Acids (FISH OIL | mouth 2 times daily. | | | 15 | 9 | | CONCENTRATE) 1000 MG | | | | | | | CAPS | | | | | | + + + +---------+ + + | [place]-3 Fatty | Take 1,000 mg by | [...] | | | | | [place] | | | | | | [address] | | | | | | | [...] | 4.2 | 3.5 - 5.1 | [facility] | | | | | mmol/L | [...] mL/min/1.73m2 | [facility] | | | [place] | RATE,ESTIMATED | | MEDICAL | | | | mL/min/1.82u8Twia than | | CENTER - | | [...] | 8.3 - 10.5 | [facility] | | | | | mg/dL | [facility] | | | | | | MEDICAL | | | | | | CENTER - | | | | | | LABORATORY | | + + + + + + | Albumin | 4.1 | 3.2 - 5.0 g/dL | [facility] | | | | | | [facility] | | | | | | MEDICAL [...] [address] | [place] | [phone] | | [facility] | | [address] | | | - LABORATORY | | | | + + + + + documented in this encounter Visit Diagnoses + + | Diagnosis | + + | Essential hypertension Unspecified essential hypertension | + + documented in this encounter"
--- OUTSIDE RECORDS SUMMARY | ~2019-09-18 | XMS | Encounter Summary ---
Demographics + + + | Address | [address] | | | [place] [address] | + + + | Home Phone [...] [place], [place] | | | | | [address] | | + + + + + Care Team Providers + +------+ + | Care Airline Dispatcher Name | Role | Phone | + +------+ + PCP | Unavailable | + +------+ + Encounter Details +--------+ + + + + | Date | Type | Department | Care Team | Description | +--------+ + + + + | 05/25/ | Hospital | [facility] | | | | 1991 | Encounter | MED CTR LABORATORY | | | | | | [address] | | | | | | [place] | | | | | | [address] | | | | | | [phone] | | | +--------+ + + + [...] | | | | | [place] | | | | | | [address] | | | | | | | | +--------+---------+ + + + documented as of this encounter Visit Diagnoses Not on filedocumented in this encounter"
--- OUTSIDE RECORDS SUMMARY | ~2019-09-18 | XMS | Encounter Summary ---
Demographics + + + | Address | [address] | | | [place] [address] | + + + | Home Phone [...] [place] | | | | | [address] | | + + + + + Care Team Providers + +------+ + | Care Scrap Carrier Name | Role | Phone | [...] + + | 07/08/ | Telephone | [facility] | Frandy Teresa, | Other (post op call | | 2013 | | NEUROSURGERY [address] | DO [address] | ) | | | | [address] [address] | [place] [address] [place], [place] | | | | | [place], [place] | [address] | | | | | [address] | | | | | | [phone] | | | +--------+ + + + [...] | | | | | [place] | | | | | | [address] | | | | | | | | +--------+---------+ + + + documented as of this encounter Visit Diagnoses Not on filedocumented in this encounter"
--- OUTSIDE RECORDS SUMMARY | ~2019-09-18 | XMS | Encounter Summary ---
Demographics + + + | Address | [address] | | | [place] [address] | + + + | Home Phone [...] | [facility] | | [...] [place] | | | | | [address] | | + + + + + Care Team Providers + +------+ + | Care Vice President Lending Name | Role | Phone | + [...] | | | | | | | [address] | | | | | | | Phone: | | | | | | | [phone] | | | | | | | Fax: | | | | | | | [phone] | | +--------+ + + + + + Reason for Visit + + + | Reason | Comments | + + + | Follow-up | 3 mo po | + + + Encounter Details +--------+---------+ + + + | Date | Type | Department | Care Team | Description | +--------+---------+ + + + | 09/27/ | Office | [facility] | Frandy Teresa, | Lumbar spondylosis | | 2013 | Visit | NEUROSURGERY [address] | DO [address] | (Primary Dx); S/P | | | | [address] | [address] [place], [place] | lumbar fusion | | | | [place], [place] | [address] | | | | | [address] | | | | | | [phone] | | | +--------+---------+ + + + [...] [facility] [place] [address] [place] [address] FAX: NEUROSURGERY FOLLOW-UP CHIEF COMPLAINT: Chief Complaint [...] Take 15 mg by mouth nightl y. [place]-3 Fatty Acids (FISH OIL CONCENTRATE) 1000 MG [...] | | | | | [place], [place] | | | | | | [address] | | | | | | | [...]
--- OUTSIDE RECORDS SUMMARY | ~2019-09-18 | XMS | Encounter Summary ---
Demographics + + + | Address | [address] | | | [place] [address] | + + + | Home Phone [...] [place] | | | | | [address] | | + + + + + Care Team Providers + +------+ + | Care Cotton Farmworker Name | Role | Phone | [...] + + | 08/14/ | Telephone | [facility] | Ashley Chávez | Other (Patient was | | 2019 | | CARDIOLOGY [place] Abad, Electrical Troubleshooter | anxious about urgent | | | | [address] | | reports. ) | | | | [place] | | | | | | [address] | | | | | | [phone] | | | +--------+ + + + [...] [place] | | | | | | [address] | | | | | | | | +--------+---------+ + + + documented as of this encounter Visit Diagnoses Not on filedocumented in this encounter"
--- OUTSIDE RECORDS SUMMARY | ~2019-09-18 | XMS | Encounter Summary ---
Demographics + + + | Address | [address] | | | [place] [address] | + + + | Home Phone [...] [place] | | | | | [address] | | + + + + + Care Team Providers + +------+ + | Care Insurance Risk Surveyor Name | Role | Phone | [...] + + | 08/24/ | Documentati | [facility] | Katharine Moncada, | Other (urgent | | 2019 | on | CARDIOLOGY [place] | Technologist | report) | | | | [address] | | | | | | [place] | | | | | | [address] | | | | | | [phone] | | | +--------+ + + + [...] [place] | | | | | | [address] | | | | | | | | +--------+---------+ + + + documented as of this encounter Visit Diagnoses Not on filedocumented in this encounter"
--- OUTSIDE RECORDS SUMMARY | ~2019-09-18 | XMS | Encounter Summary ---
Demographics + + + | Address | [address] | | | [place] [address] | + + + | Home Phone [...] [place] | | | | | [address] | | + + + + + Care Team Providers + +------+ + | Care Chemical Laboratory Assistant Name | Role | Phone [...] [place] | | | | | | [address] | | | | | | [phone] | | | +--------+ + + + [...] [place] | | | | | | [address] | | | | | | | | +--------+---------+ + + + documented as of this encounter Visit Diagnoses Not on filedocumented in this encounter"
--- OUTSIDE RECORDS SUMMARY | ~2019-09-18 | XMS | Encounter Summary ---
Demographics + + + | Address | [address] | | | [place] [address] | + + + | Home Phone [...] [place] | | | | | [address] | | + + + + + Care Team Providers + +------+ + | Care Pony Trimmer Name | Role | Phone | [...] NOT | | | | [address] | [address] [place], [place] | PERFORMED | | | | [place], [place] | [address] | | | | | [address] | | | | | | [phone] | | | +--------+---------+ + + + [...] + + + +---------+ + + | Morris-3 Fatty | Take 1,000 mg by | [...] | | | | | [place], [place] | | | | | | [id number] | | | | | | | [...] mL/min/1.73m2 | [facility] | | | [facility] | RATE,ESTIMATED | | MEDICAL | | | | mL/min/1.68n7Mkuo than | | CENTER - | | [...] + | [facility] | [address] | [place] | [phone] | | [facility] | | [address] | | | - LABORATORY | | | | + + + + + | [facility] | [address] | [place] | | | [facility] | | [address] | | | - LABORATORY | | [...] + | [facility] | [address] | [place] | [phone] | | [facility] | | [address] | | | - LABORATORY | | | | + + + + + | [facility] | [address] | [place] | | | [facility] | | [address] | | | - LABORATORY | | [...] ST. | [address] | [place] | [phone] | | [facility] | | [address] | | | - LABORATORY | | | | + + + + + | [facility] | [address] | [place], [place] | | | [facility] | | [address] | | | - LABORATORY | | [...] | | [facility] | | [address] | | | - BLOOD BANK | [...] | + + + + + | [facility] | [address] | [place], [place] | [phone] | | [facility] | | [address] | | | - LABORATORY | | | | + + + + + | [facility] | [address] | [place], [place] | | | [facility] | | [address] | | | - LABORATORY | | [...]
--- OUTSIDE RECORDS SUMMARY | ~2019-09-18 | XMS | Encounter Summary ---
Demographics + + + | Address | [address] | | | [place] [address] | + + + | Home Phone [...] [place], [place] | | | | | [address] | | + + + + + Care Team Providers + +------+ + | Care First Cook Name | Role | Phone | + +------+ + PCP | Unavailable | + +------+ + Encounter Details +--------+ + + + + | Date | Type | Department | Care Team | Description | +--------+ + + + + | 06/17/ | Hospital | [facility] | | | | 1991 - | Encounter | MED CTR GENERIC PSY | | | | | | CONV DEPT [address] | | | | 06/18/ | | [address], | | | | 1991 | | [place] [address] | | | | | | [phone] | | | +--------+ + + + [...]
--- OUTSIDE RECORDS SUMMARY | ~2019-09-18 | XMS | Encounter Summary ---
Demographics + + + | Address | [address] | | | [place] [address] | + + + | Home Phone [...] [place] | | | | | [address] | | + + + + + [...] + + | 06/27/ | Office | [facility] | Yecenia Richardson, | Hypertension, | | 2019 | Visit | CARDIOLOGY [place] | MD Nitin RODRIGUES | unspecified type | | | | [address] | [place], [place] | (Primary Dx); | | | | KEV SCHAFER [facility] | [address] | Bradycardia | | | | [place] | | | | | | [address] | | | | | | [phone] | | | +--------+---------+ + + + [...] urgent basis. Had an appointment today in [facility]. She has been feeling dizzy as [...] Take by mouth. Blood Glucose Monitoring Suppl (Measurabl VERIO FLEX SYSTEM) w/Device KIT by Does [...] mg by mouth Daily. Cholecalciferol (VITAMIN D-3) 76204 units CAPS Take 50,000 Units by mouth [...] tablet Take 10 mg by mouth nightly. [place]-3 Fatty Acids (FISH OIL CONCENTRATE) 1000 MG [...] | | | | | | [place] [facility] [place] | | | | | | [address] | | | | | | | [...]
--- OUTSIDE RECORDS SUMMARY | ~2019-09-18 | XMS | Encounter Summary ---
Demographics + + + | Address | [address] | | | [place] [address] | + + + | Home Phone [...] [place] | | | | | [address] | | + + + + + [...] [place] | | | | | | [address] | | | | | | [phone] | | | +--------+ + + + [...] [place] | | | | | | [address] | | | | | | | | +--------+---------+ + + + documented as of this encounter Visit Diagnoses Not on filedocumented in this encounter"
--- OUTSIDE RECORDS SUMMARY | ~2019-09-18 | XMS | Encounter Summary ---
Demographics + + + | Address | [address] | | | [place] [address] | + + + | Home Phone [...] [place] | | | | | [address] | | + + + + + Care Team Providers + +------+ + | Care Data Sme Name | Role | Phone | + [...] Office | [facility] | Deon Gonzales | ROGERS (obstructive | | 2012 | Visit | SLEEP DISORDER [address] | MD [address] | sleep apnea) | | | | [address] [place] | [address] [place] | (Primary Dx); | | | | [place] [address] | [place] [address] | Sleepiness | | | | [phone] | [phone] | | | | | | | [...] differen t from the original. 03/06/13 1000 [place] Sleepiness Scale Sitting and reading 3 Watching [...] by mouth Daily., Disp: , Rfl: ; [place]-3 Fatty Acids (FISH OIL CONCENTRATE) 1000 MG [...] | | | | | | [place] | | | | | | [id number] | | | | | | | | +--------+---------+ + + + documented as of this encounter Visit Diagnoses + + | Diagnosis | + + | ROGERS (obstructive sleep apnea) - Primary Obstructive sleep apnea (adult) (pediatric) | + + | Sleepiness Other alteration of consciousness | + + documented in this encounter"
--- OUTSIDE RECORDS SUMMARY | ~2019-09-18 | XMS | Encounter Summary ---
Demographics + + + | Address | [address] | | | [place] [address] | + + + | Home Phone [...] [place] | | | | | [address] | | + + + + + Care Team Providers + +------+ + | Care Lighting Designer Name | Role | Phone | [...] [address] | | | | | | [place], [place] | | | | | | [address] | | | +--------+ + + + [...]
--- OUTSIDE RECORDS SUMMARY | ~2019-09-18 | XMS | Encounter Summary ---
Demographics + + + | Address | [address] | | | [place] [address] | + + + | Home Phone [...] [place] | | | | | [address] | | + + + + + Care Team Providers + +------+ + | Care Parking Inspector Name | Role | Phone | [...] + | 02/21/ | Refill | [facility] | Deon Gonzales | Medication Refill | | 2012 | | SLEEP DISORDER 401 | MD Laureano [address] | | | | | [address] [place] | [address] [place] | | | | | [place] [address] | [place] [address] | | | | | [phone] | [phone] | | | | | | | [...] [place] | | | | | | [address] | | | | | | | | +--------+---------+ + + + documented as of this encounter Visit Diagnoses + + | Diagnosis | + + | Obstructive sleep apnea (adult) (pediatric) - Primary | + + documented in this encounter"
--- OUTSIDE RECORDS SUMMARY | ~2019-09-18 | XMS | Encounter Summary ---
Demographics + + + | Address | [address] | | | [place] [address] | + + + | Home Phone [...] [place], [place] | | | | | [address] | | + + + + + Care Team Providers + +------+ + | Care Admissions Counselor Name | Role | Phone | + +------+ + PCP | Unavailable | + +------+ + Encounter Details +--------+ + + + + | Date | Type | Department | Care Team | Description | +--------+ + + + + | 02/28/ | Hospital | [facility] | Deon Gonzales | | | 2011 | Encounter | MED CTR SLEEP | MD Laureano [address] | | | | | [place] [address] | [address] [place] | | | | | [place], [place] | [place] [address] | | | | | [address] | [phone] | | | | | [phone] | | | +--------+ + + + [...] [place] | | | | | | [id number] | | | | | | | | +--------+---------+ + + + documented as of this encounter Visit Diagnoses Not on filedocumented in this encounter"
--- OUTSIDE RECORDS SUMMARY | ~2019-09-18 | XMS | Encounter Summary ---
Demographics + + + | Address | [address] | | | [place] [address] | + + + | Home Phone [...] [place] | | | | | [address] | | + + + + + Care Team Providers + +------+ + | Care Television Installer Helper Name | Role | Phone | [...] [place] | | | | | | [address] | | | | | | [phone] | | | +--------+ + + + [...] [place] | | | | | | [address] | | | | | | | | +--------+---------+ + + + documented as of this encounter Visit Diagnoses Not on filedocumented in this encounter"
--- OUTSIDE RECORDS SUMMARY | ~2019-09-18 | XMS | Encounter Summary ---
Demographics + + + | Address | [address] | | | [place] [address] | + + + | Home Phone [...] [place], [place] | | | | | [address] | | + + + + + Care Team Providers + +------+ + | Care Ota Name | Role | Phone | + +------+ + PCP | Unavailable | + +------+ + Encounter Details +--------+ + + + + | Date | Type | Department | Care Team | Description | +--------+ + + + + | 02/24/ | Hospital | [facility] | | | | 1997 - | Encounter | MED CTR GENERIC PSY | | | | | | CONV DEPT [address] | | | | 02/26/ | | [place], | | | | 1997 | | [place] [address] | | | | | | [phone] | | | +--------+ + + + [...] [place] | | | | | | [address] | | | | | | | | +--------+---------+ + + + documented as of this encounter Visit Diagnoses Not on filedocumented in this encounter"
--- OUTSIDE RECORDS SUMMARY | ~2019-09-18 | XMS | Encounter Summary ---
Demographics + + + | Address | [address] | | | [place] [address] | + + + | Home Phone [...] [place] | | | | | [address] | | + + + + + Care Team Providers + +------+ + | Care Accounts Receivable Specialist Name | Role | Phone | [...] + + | 08/08/ | Telephone | [facility] | Ashley Chávez | Other (Questions | | 2019 | | CARDIOLOGY [place] | Pollo, Senior Environmental Engineer | about coverage. ) | | | | [address] | | | | | | [place] | | | | | | [address] | | | | | | [phone] | | | +--------+ + + + [...] [place] | | | | | | [address] | | | | | | | | +--------+---------+ + + + documented as of this encounter Visit Diagnoses Not on filedocumented in this encounter"
--- OUTSIDE RECORDS SUMMARY | ~2019-09-18 | XMS | Encounter Summary ---
Demographics + + + | Address | [address] | | | [place] [address] | + + + | Home Phone [...] [place] | | | | | [address] | | + + + + + Care Team Providers + +------+ + | Care Investor Relations Manager Name | Role | Phone [...] [address] | [address] [place], [place] | Anxiety; Anemia; | | | | [place], [place] | [address] | Irregular heartbeat; | | | | [address] | | Depression; | | | | [phone] | | Migraine; | | | | [...] [place] | | | | | | [address] | | | | | | | [...]
--- OUTSIDE RECORDS SUMMARY | ~2019-09-18 | XMS | Encounter Summary ---
Demographics + + + | Address | [address] | | | [place] [address] | + + + | Home Phone [...] [place], [place] | | | | | [address] | | + + + + + Care Team Providers + +------+ + | Care Wood Experimental Mechanic Name | Role | Phone | + +------+ + PCP | Unavailable | + +------+ + Encounter Details +--------+ + + + + | Date | Type | Department | Care Team | Description | +--------+ + + + + | 02/24/ | Hospital | [facility] | | | | 1997 - | Encounter | MED CTR GENERIC PSY | | | | | | CONV DEPT [address] | | | | 02/26/ | | [place], | | | | 1997 | | [place] [address] | | | | | | [phone] | | | +--------+ + + + [...] [place] | | | | | | [address] | | | | | | | | +--------+---------+ + + + documented as of this encounter Visit Diagnoses Not on filedocumented in this encounter"
--- OUTSIDE RECORDS SUMMARY | ~2019-09-18 | XMS | Encounter Summary ---
Demographics + + + | Address | [address] | | | [place] [address] | + + + | Home Phone [...] [place] | | | | | [address] | | + + + + + Care Team Providers + +------+ + | Care Roll Plugger Name | Role | Phone | + [...] [address] | [address] [place], [place] | Hypothyroidism; | | | | [place], [place] | [address] | GERD; BACK PAIN, | | | | [address] | | LUMBAR, WITH | | | | [phone] | | RADICULOPATHY; | | | | [...] [place] | | | | | | [address] | | | | | | | [...]
--- OUTSIDE RECORDS SUMMARY | ~2019-09-18 | XMS | Encounter Summary ---
Demographics + + + | Address | [address] | | | [place] [address] | + + + | Home Phone [...] [place], [place] | | | | | [address] | | + + + + + Care Team Providers + +------+ + | Care Hazardous Substances Scientist Name | Role | Phone | [...] [place] | | | | | | [address] | | | | | | [phone] | | | +--------+ + + + [...] | | | | | [place] | | | | | | [address] | | | | | | | | +--------+---------+ + + + documented as of this encounter Visit Diagnoses Not on filedocumented in this encounter"
--- OUTSIDE RECORDS SUMMARY | ~2019-09-18 | XMS | Encounter Summary ---
Demographics + + + | Address | [address] | | | [place] [address] | + + + | Home Phone [...] [place] | | | | | [address] | | + + + + + [...] + + | 06/12/ | Hospital | [facility] | Frandy Teresa, | No Show | | 2014 | Encounter | MED CTR | DO [address] | | | | | [employer] | [address] [place], [place] | | | | | [address] [place] | [address] | | | | | [place] [address] | | | | | | [phone] | | | +--------+ + + + [...] [place] | | | | | | [address] | | | | | | | | +--------+---------+ + + + documented as of this encounter Visit Diagnoses Not on filedocumented in this encounter"
--- OUTSIDE RECORDS SUMMARY | ~2019-09-18 | XMS | Encounter Summary ---
Demographics + + + | Address | [address] | | | [place] [address] | + + + | Home Phone [...] [place] | | | | | [address] | | + + + + + Care Team Providers + +------+ + | Care Clothing Examiner Name | Role | Phone | [...] [address] | [address] [place], [place] | fusion | | | | [place], [place] | [address] | | | | | [address] | | | | | | [phone] | | | +--------+ + + + [...] [place] | | | | | | [address] | | | | | | | | +--------+---------+ + + + documented as of this encounter Visit Diagnoses + + | Diagnosis | + + | Lumbago - Primary | + + | S/P lumbar fusion Arthrodesis status | + + documented in this encounter"
--- OUTSIDE RECORDS SUMMARY | ~2019-09-18 | XMS | Encounter Summary ---
Demographics + + + | Address | [address] | | | [place] [address] | + + + | Home Phone [...] [place] | | | | | [address] | | + + + + + Care Team Providers + +------+ + | Care Planetarium Technician Name | Role | Phone | [...] [address] | [address] [place], [place] | | | | | [place], [place] | [id number] | | | | | [address] | | | | | | [phone] | | | +--------+ + + + [...] | | | | | [place] | | | | | | [address] | | | | | | | | +--------+---------+ + + + documented as of this encounter Visit Diagnoses Not on filedocumented in this encounter"
[~2019-09-18 13:52] MED LIST changes: +NOVOLOG MI100 UNIT/1 SUB-Q
--- OUTSIDE RECORDS SUMMARY | 2019-09-18 13:54 | XMS ---
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 Security Creative Perfumer Events No recent Security Events currently on file CRITERIA MET - 6 ED Visits in 6 Months - [facility] - Has Care Guidelines - PDMP - [facility] - 2 Visits in 30 Days CARE PROVIDERS WAYNE CAMARGO Internal Medicine 09/07/2019-Current PHONE: Unknown Kenny Palafox DO Family [facility] Current PHONE: Unknown Jose Ag Family Medicine 01/31/2019-Current PHONE: Unknown [facility] Provider Current PHONE: [phone] Guidelines Source: [facility] [place] Guidelines Date: 03/13/2019 Care Coordination: Mental health services are being provided by [facility].\T\nbsp; [facility].\T\nbsp; [place]: [phone]\T\nbsp; [place]: [phone]. Care History Medical/Surgical 07/02/2019 [facility] - PATIENT HAS AN APT WITH OLIVER CANALES ON 07/19/19. 05/08/2019 [facility] - PATIENT HAS A FIRST LEVELER - DR DESHAUN C[facility]VA [facility] [phone]. - PATIENT IS WORKING CLOSELY WITH [employer] [employer] [employer] IN REGARDS TO PSYCHIATRIC MEDICATIONS. ANY PSYCHIATRIC MED CHANGES AND OR ADJUSTMENTS WILL NEED TO BE REVIEWED BY SOURCING CONSULTANT AT [facility]. 04/11/2019 [facility] - PATIENT HAS AN APT WITH DR ALAS ON 04/25/19. E.D. VISIT COUNT (12 MO.) 19 [facility]. TOTAL 19 NOTE: Visits indicate total known visits. ED/UCC VISIT TRACKING (12 MO.) 09/18/2019 13:53 [facility] [place] TYPE: Emergency COMPLAINT: - MEDICAL CLEARANCE 09/18/2019 10:33 JA[facility] [place] TYPE: Emergency COMPLAINT: - SUICIDAL THOUGHTS, HEARING VOICES 09/06/2019 11:40 JAEL [place] TYPE: Emergency COMPLAINT: - MEDICAL CLEARANCE DIAGNOSES: - Old myocardial infarction - Essential (primary) hypertension - Allergy status to sulfonamides status - Auditory hallucinations - Other group home (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 - Allergy status to oth drug/meds/biol subst status - 1 Type 2 diabetes mellitus without complications - Gastro-esophageal reflux disease without esophagitis 08/15/2019 15:26 [facility] [place] TYPE: Emergency COMPLAINT: - DIZZINESS DIAGNOSES: - Schizoaffective disorder, unspecified - Other group home (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 - 1 Type 2 [...] Allergy status to sulfonamides status - Other emt 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 (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 - Allergy status [...] status to narcotic agent status - Other emt 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 (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 - Schizophrenia, unspecified 05/10/2019 14:24 JA[facility] [place] TYPE: Emergency COMPLAINT: - MEDICAL CLEARANCE DIAGNOSES: - Acquired absence of other specified parts of digestive tract - 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 - Gastro-esophageal reflux disease without esophagitis - Other emt 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 (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 - Allergy status to oth drug/meds/biol subst status - senior care (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 of 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 - [...] Allergy status to sulfonamides status - Other emt 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 (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 - Essential (primary) hypertension [...] deficits - Old myocardial infarction - Other group home (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 - Allergy status to sulfonamides status - Other chest pain 05/02/2019 13:59 JA[facility] [place] TYPE: Emergency COMPLAINT: - VOMITING, CHEST PAIN, WEAKNESS DIAGNOSES: - Allergy status to sulfonamides status - 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 - [...] to oth drug/meds/biol subst status - Other emt 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 (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 - Allergy status [...] Allergy status to sulfonamides status - Other emt 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 (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 - Allergy status [...] PAIN DIAGNOSES: - Essential (primary) hypertension - 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
[2019-09-18] MEDS ORDERED: GLIPIZIDE5 MG PO (17:51)
[2019-09-18] MEDS ORDERED: GLUCOPHAGE XR500 MG PO (17:51)
== END 2019-09-18 20:42 | disposition home or self-care (01) ==
LOC: ED 13:52
DX: F25.9 Schizoaffective disorder, unspecified (principal); R21 Rash and other nonspecific skin eruption; I10 Essential (primary) hypertension; K21.9 Gastro-esophageal reflux disease without esophagitis; E11.9 Type 2 diabetes mellitus without complications; I25.2 Old myocardial infarction; Z88.2 Allergy status to sulfonamides; Z88.8 Allergy status to other drugs, medicaments and biological substances; Z79.899 Other long term (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; Z79.4 Long term (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
CPT/HCPCS: 99284; J1815; Q0163

== ENCOUNTER 2019-09-25 13:33 | Emergency (ER) | payer MEDICARE ==
[~2019-09-25] VITALS: Ht 170.2 cm; Wt 134.6 kg
--- OUTSIDE RECORDS SUMMARY | ~2019-09-25 | XMS | Encounter Summary ---
Demographics + + + | Address | [address] | | | [place] [address] | + + + | Home Phone | | + + + | Preferred Language | Unknown | + + + | Marital Status | | + + + | Shinto Affiliation | 1013 | + + + | Race | Unknown | + + + | Ethnic Group | Unknown | + + + Author + + + | Author | [facility] | | | and [place] | + + + | Organization | [facility] | | | and [place] | + + + | Address | Unknown | + + + | Phone | Unavailable | + + + Support + + + + + | Name | Relationship | Address | Phone | + + + + + | Araceli Sibley | ECON | [place], [place] | | | | | [address] | | + + + + + Care Team Providers + +------+ + | Care Liquified Natural Gas Specialist Name | Role | Phone | + +------+ + PCP | Unavailable | + +------+ + Encounter Details +--------+ + + + + | Date | Type | Department | Care Team | Description | +--------+ + + + + | 02/24/ | Hospital | [facility] | | | | 1997 - | Encounter | MED CTR GENERIC PSY | | | | | | CONV DEPT [address] | | | | 02/26/ | | [place], | | | | 1997 | | [place] [address] | | | | | | [phone] | | | +--------+ + + + [...] [place] | | | | | | [address] | | | | | | | | +--------+---------+ + + + documented as of this encounter Visit Diagnoses Not on filedocumented in this encounter"
--- OUTSIDE RECORDS SUMMARY | ~2019-09-25 | XMS | Encounter Summary ---
Demographics + + + | Address | [address] | | | [place] [address] | + + + | Home Phone | | + + + | Preferred Language | Unknown | + + + | Marital Status | | + + + | Jew Affiliation | 1013 | + + + | Race | Unknown | + + + | Ethnic Group | Unknown | + + + Author + + + | Author | [facility] | | | and [place] | + + + | Organization | [facility] | | | and [place] | + + + | Address | Unknown | + + + | Phone | Unavailable | + + + Support + + + + + | Name | Relationship | Address | Phone | + + + + + | Araceli Sibley | ECON | [place], [place] | | | | | [address] | | + + + + + Care Team Providers + +------+ + | Care Jacquard Loom Weaver Name | Role | Phone | + +------+ + PCP | Unavailable | + +------+ + Encounter Details +--------+ + + + + | Date | Type | Department | Care Team | Description | +--------+ + + + + | 09/23/ | Hospital | [facility] | | | | 1994 | Encounter | MED CTR LABORATORY | | | | | | [address] | | | | | | [place] | | | | | | [address] | | | | | | [phone] | | | +--------+ + + + [...] | | | | | [place] | | | | | | [address] | | | | | | | | +--------+---------+ + + + documented as of this encounter Visit Diagnoses Not on filedocumented in this encounter"
--- OUTSIDE RECORDS SUMMARY | ~2019-09-25 | XMS | Encounter Summary ---
Demographics + + + | Address | [address] | | | [place] [address] | + + + | Home Phone [...] [place], [place] | | | | | [address] | | + + + + + Care Team Providers + +------+ + | Care Surgery Scheduling Coordinator Name | Role | Phone | + +------+ + PCP | Unavailable | + +------+ + Encounter Details +--------+ + + + + | Date | Type | Department | Care Team | Description | +--------+ + + + + | 09/23/ | Hospital | [facility] | | | | 1994 | Encounter | MED CTR LABORATORY | | | | | | [address] | | | | | | [place] | | | | | | [address] | | | | | | [phone] | | | +--------+ + + + [...] | | | | | [place] | | | | | | [address] | | | | | | | | +--------+---------+ + + + documented as of this encounter Visit Diagnoses Not on filedocumented in this encounter"
--- OUTSIDE RECORDS SUMMARY | ~2019-09-25 | XMS | Encounter Summary ---
Demographics + + + | Address | [address] | | | [place] [address] | + + + | Home Phone | | + + + | Preferred Language | Unknown | + + + | Marital Status | | + + + | Synagogue Affiliation | 1013 | + + + | Race | Unknown | + + + | Ethnic Group | Unknown | + + + Author + + + | Author | [facility] | | | and [place] | + + + | Organization | [facility] | | | and [place] | + + + | Address | Unknown | + + + | Phone | Unavailable | + + + Support + + + + + | Name | Relationship | Address | Phone | + + + + + | Araceli Sibley | ECON | [place] | | | | | [address] | | + + + + + Care Team Providers + +------+ + | Care It Program Engagement Director Name | Role | Phone | [...] + + | 08/20/ | Documentati | [facility] | Katharine Moncada, | Other (urgent | | 2019 | on | CARDIOLOGY [place] | Technologist | report) | | | | [address] | | | | | | [place] | | | | | | [address] | | | | | | [phone] | | | +--------+ + + + [...] Progress Notes Katharine Moncada, Technologist - 08/20/2019 2:04 PM PDTReceived urgent report 08/20/19 Pt had a self triggered 08/19/19 at 12:10 90 BPM Called pt and she slept all [...] [place] | | | | | | [address] | | | | | | | | +--------+---------+ + + + documented as of this encounter Visit Diagnoses Not on filedocumented in this encounter"
--- OUTSIDE RECORDS SUMMARY | ~2019-09-25 | XMS | Encounter Summary ---
Demographics + + + | Address | [address] | | | [place] [address] | + + + | Home Phone [...] [place] | | | | | [address] | | + + + + + Care Team Providers + +------+ + | Care Functional Manager Name | Role | Phone | + +------+ + | Adriano Patrick MD | PCP | | + +------+ + Reason for Visit +--------+ + | Reason | Comments | +--------+ + | Other | Patient has questions about monitor. | +--------+ + Encounter Details +--------+ + + + + | Date | Type | Department | Care Team | Description | +--------+ + + + + | 08/28/ | Telephone | [facility] | Ashley Chávez | Other (Patient has | | 2019 | | CARDIOLOGY [place] Abad, Security Police Officer | questions about | | | | [address] | | monitor. ) | | | | [place] | | | | | | [address] | | | | | | [phone] | | | +--------+ + + + [...] [place] | | | | | | [address] | | | | | | | | +--------+---------+ + + + documented as of this encounter Visit Diagnoses Not on filedocumented in this encounter"
--- OUTSIDE RECORDS SUMMARY | ~2019-09-25 | XMS | Encounter Summary ---
Demographics + + + | Address | [address] | | | [place] [address] | + + + | Home Phone | | + + + | Preferred Language | Unknown | + + + | Marital Status | | + + + | Faith Affiliation | 1013 | + + + | Race | Unknown | + + + | Ethnic Group | Unknown | + + + Author + + + | Author | [facility] | | | and [place] | + + + | Organization | [facility] | | | and [place] | + + + | Address | Unknown | + + + | Phone | Unavailable | + + + Support + + + + + | Name | Relationship | Address | Phone | + + + + + | Araceli Sibley | ECON | [place] | | | | | [address] | | + + + + + Care Team Providers + +------+ + | Care Electric Wheelchair Repairer Name | Role | Phone | + +------+ + | Basim Bolanos MD | PCP | | + +------+ + Encounter Details +--------+ + + + + | Date | Type | Department | Care Team | Description | +--------+ + + + + | 01/24/ | Abstract | [facility] [place] | [facility], | | | 2012 | | GASTROENTEROLOGY | [address] | | | | | [address] [place] | [place], [address] | | | | | [address] [place], [place] | [place], [place] | | | | | [address] | [address] | | | | | [phone] | | | +--------+ + + + [...] [place] | | | | | | [address] | | | | | | | | +--------+---------+ + + + documented as of this encounter Visit Diagnoses Not on filedocumented in this encounter"
--- OUTSIDE RECORDS SUMMARY | ~2019-09-25 | XMS | Encounter Summary ---
Demographics + + + | Address | [address] | | | [place] [address] | + + + | Home Phone [...] [place] | | | | | [address] | | + + + + + Care Team Providers + +------+ + | Care Hydraulic Barker Operator Name | Role | Phone | + +------+ + | Natalee Andersen NP | PCP | | + +------+ + Encounter Details +--------+ + + + + | Date | Type | Department | Care Team | Description | +--------+ + + + + | 03/13/ | Orders Only | [facility] [place] | Frandy Teresa, | Back pain (Primary | | 2013 | | NEUROSURGERY [address] | DO [address] | Dx) | | | | [address] | [address] [place], [place] | | | | | [place], [place] | [address] | | | | | [address] | | | | | | [phone] | | | +--------+ + + + [...] [place] | | | | | | [address] | | | | | | | | +--------+---------+ + + + documented as of this encounter Results XR Lumbar Spine 2 or 3 Vw (05/02/2014 10:21 AM PDT) + + | Specimen | + + | | + + + + + | Narrative | Performed At | + + + | LIMITED LUMBAR SPINE: 05/02/2014 10:21 AM CLINICAL HISTORY: back | MISCELANIOUS | | pain COMPARISON: 12/01/2011 FINDINGS: Lateral views of lumbar | LAB | | spine in neutral, flexion and extension. There are 5 lumbar segments. | | | Vertebral body heights are normally maintained. As noted on prior | | | exam, there is anterolisthesis of L5 on S1 measuring approximately 10 | | | mm in the neutral position. This does not change in flexion, but in | | | extension it appears to decrease slightly. Alignment is normal at the | | | other levels. Disc space narrowing at L5-S1 with endplate | | | sclerotic changes. Probable pars interarticularis defects at L5-S1. | | | Other disc interspaces are relatively well maintained. No adjacent | | | soft tissue abnormality. IMPRESSION - L5-S1 spondylolisthesis with | | | question of mild instability in extension. Degenerative disc change | | | and probable pars interarticularis defects also at L5-S1. | | | Dictated and Signed by: Zach Cardoza MD Electronically signed: | | | 05/02/2014 11:18 AM | | + + + + + | Procedure Note | + + | Juan, Rad Results In - 05/02/2014 11:22 AM PDT LIMITED LUMBAR SPINE: 05/02/2014 10:21 | | AMCLINICAL HISTORY: back painCOMPARISON: 12/01/2011FINDINGS: Lateral views of lumbar spine | | in neutral, flexion and extension. Thereare 5 lumbar segments. Vertebral body heights | | are normally maintained. As notedon prior exam, there is anterolisthesis of L5 on S1 | | measuring approximately 10mm in the neutral position. This does not change in flexion, | | but in extension itappears to decrease slightly. Alignment is normal at the other | | levels.Disc space narrowing at L5-S1 with endplate sclerotic changes. Probable | | parsinterarticularis defects at L5-S1. Other disc interspaces are relatively | | wellmaintained. No adjacent soft tissue abnormality.IMPRESSION - L5-S1 spondylolisthesis | | with question of mild instability inextension. Degenerative disc change and probable | | pars interarticularis defectsalso at L5-S1.Dictated and Signed by: Zach Cardoza MD | | Electronically signed: 05/02/2014 11:18 AM | |Disc space narrowing at L5-S1 with endplate sclerotic changes. Probable pars | |interarticularis defects at L5-S1. Other disc interspaces are relatively well | |maintained. No adjacent soft tissue abnormality. | | | |IMPRESSION - L5-S1 spondylolisthesis with question of mild instability in | |extension. Degenerative disc change and probable pars interarticularis defects | |also at L5-S1. | | | |Dictated and Signed by: Zach Cardoza MD | | Electronically signed: 05/02/2014 11:18 AM | + + + +---------+ + + | Performing | Address | City/State/Zipcode | Phone Number | | Organization | | | | + +---------+ + + | MISCELLANEOUS LAB | | | [phone] | + +---------+ + + | MISCELANIOUS LAB | | | [phone] | + +---------+ + + documented in this encounter Visit Diagnoses + + | Diagnosis | + + | Back pain - Primary Backache, unspecified | + + documented in this encounter"
--- OUTSIDE RECORDS SUMMARY | ~2019-09-25 | XMS | Encounter Summary ---
Demographics + + + | Address | [address] | | | [place] [address] | + + + | Home Phone | | + + + | Preferred Language | Unknown | + + + | Marital Status | Single | + + + | Jain Affiliation | Unknown | + + + | Race | White | + + + | Ethnic Group | Not or | + + + Author + + + | Author | [facility] | + + + | Organization | [facility] | + + + | Address | Unknown | + + + | Phone | Unavailable | + + + Support + + + + + | Name | Relationship | Address | Phone | + + + + + | Kelsy Bautista | ECON | [address] | | | | | [place] | | | | | [address] | | + + + + + Care Team Providers + +------+ + | Care Liquor Grinder Mill Operator Name | Role | Phone | + +------+ + PCP | Unavailable | + +------+ + Encounter Details +--------+ + + + + | Date | Type | Department | Care Team | Description | +--------+ + + + + | 02/04/ | Hospital | LAB SURGICAL | | | | 2014 | Encounter | PATHOLOGY [address] | | | | | [address] | | | | | | [place], [place] | | | | | | [address] | | | +--------+ + + + [...]
--- OUTSIDE RECORDS SUMMARY | ~2019-09-25 | XMS | Encounter Summary ---
Demographics + + + | Address | [address] | | | [place] [address] | + + + | Home Phone [...] [place] | | | | | [address] | | + + + + + Care Team Providers + +------+ + | Care Mapping Specialist Name | Role | Phone | [...] + + | 08/09/ | Clinical | [facility] | Desiree Peterson DO | Syncope, unspecified | | 2019 | Support | CARDIOLOGY [place] | [address] | syncope type | | | | [address] | [place], [place] | | | | | [place] [address] | [address] | | | | | [place] | | | | | | [address] | Dora [place] | | | | | [phone] | CAROLINE Mendez [address] | | | | | [address] | | | | | | [place] [address] | | | | | | [phone] | | | | | | | [...] [place] | | | | | | [address] | | | | | | | | +--------+---------+ + + + documented as of this encounter Visit Diagnoses + + | Diagnosis | + + | Syncope, unspecified syncope type | + + documented in this encounter"
--- OUTSIDE RECORDS SUMMARY | ~2019-09-25 | XMS | Encounter Summary ---
Demographics + + + | Address | [address] | | | [place] [address] | + + + | Home Phone | | + + + | Preferred Language | Unknown | + + + | Marital Status | | + + + | Congregational Affiliation | 1013 | + + + [...] [place] | | | | | [address] | | + + + + + Care Team Providers + +------+ + | Care Director Of Broadcast Name | Role | Phone | + [...] + + | 09/10/ | Documentati | [facility] | Katharine Moncada, | Other (urgent | | 2019 | on | CARDIOLOGY [place] | Technologist | report) | | | | [address] | | | | | | [place] | | | | | | [address] | | | | | | [phone] | | | +--------+ + + + [...] [place] | | | | | | [address] | | | | | | | | +--------+---------+ + + + documented as of this encounter Visit Diagnoses Not on filedocumented in this encounter"
--- OUTSIDE RECORDS SUMMARY | ~2019-09-25 | XMS | Encounter Summary ---
Demographics + + + | Address | [address] | | | [place] [address] | + + + | Home Phone [...] [place] | | | | | [address] | | + + + + + Care Team Providers + +------+ + | Care Ending Machine Operator Name | Role | Phone | + +------+ + | Natalee Andersen NP | PCP | | + +------+ + Reason for Visit +--------+ + | Reason | Comments | +--------+ + | Other | post op call | +--------+ + Encounter Details +--------+ + + + + | Date | Type | Department | Care Team | Description | +--------+ + + + + | 07/08/ | Telephone | [facility] | Frandy Teresa, | Other (post op call | | 2013 | | NEUROSURGERY [address] | DO [address] | ) | | | | [address] | [address] [place], [place] | | | | | [place], [place] | [address] | | | | | [address] | | | | | | [phone] | | | +--------+ + + + [...] | | | | | [place] | | | | | | [address] | | | | | | | | +--------+---------+ + + + documented as of this encounter Visit Diagnoses Not on filedocumented in this encounter"
--- OUTSIDE RECORDS SUMMARY | ~2019-09-25 | XMS | Encounter Summary ---
Demographics + + + | Address | [address] | | | [place] [address] | + + + | Home Phone [...] [place] | | | | | [address] | | + + + + + Care Team Providers + +------+ + | Care Mop Handle Assembler Name | Role | Phone | [...] + | 03/07/ | Telephone | [facility] | Katharine Cardona PA-C | Results | | 2014 | | [facility] | [address] | | | | | [address] | [place] [address] | | | | | [place], [place] | [phone] | | | | | [address] | | | | | | [phone] | | | +--------+ + + + [...] [place] | | | | | | [address] | | | | | | | | +--------+---------+ + + + documented as of this encounter Visit Diagnoses Not on filedocumented in this encounter"
--- OUTSIDE RECORDS SUMMARY | ~2019-09-25 | XMS | Encounter Summary ---
Demographics + + + | Address | [address] | | | [place] [address] | + + + | Home Phone [...] [place] | | | | | [address] | | + + + + + Care Team Providers + +------+ + | Care Electromechanisms Design Drafter Name | Role | Phone | + [...] [address] | [address] [place], [place] | | | | | [place], [place] | [phone] | | | | | [address] | | | | | | [phone] | | | +--------+ + + + [...] | | | | | [place] | | | | | | [address] | | | | | | | | +--------+---------+ + + + documented as of this encounter Visit Diagnoses Not on filedocumented in this encounter"
--- OUTSIDE RECORDS SUMMARY | ~2019-09-25 | XMS | Encounter Summary ---
Demographics + + + | Address | [address] | | | [place] [address] | + + + | Home Phone | | + + + | Preferred Language | Unknown | + + + | Marital Status | | + + + | Orthodox Affiliation | 1013 | + + + | Race | Unknown | + + + | Ethnic Group | Unknown | + + + Author + + + | Author | [facility] | | | and [place] | + + + | Organization | [facility] | | | and [place] | + + + | Address | Unknown | + + + | Phone | Unavailable | + + + Support + + + + + | Name | Relationship | Address | Phone | + + + + + | Araceli Sibley | ECON | [place] | | | | | [address] | | + + + + + Care Team Providers + +------+ + | Care Kindergarten Assistant Name | Role | Phone | [...] | 03/10/ | Refill | [facility] | Katharine Cardona PA-C | Medication Refill | | 2014 | | MEDICINE [address] | [address] [place] | | | | | Street [place] | [place] [address] | | | | | [place] [address] | [phone] | | | | | [phone] | | | +--------+--------+ + + + [...] [place] | | | | | | [address] | | | | | | | | +--------+---------+ + + + documented as of this encounter Visit Diagnoses + + | Diagnosis | + + | Essential hypertension - Primary Unspecified essential hypertension | + + documented in this encounter"
--- OUTSIDE RECORDS SUMMARY | ~2019-09-25 | XMS | Encounter Summary ---
Demographics + + + | Address | [address] | | | [place] [address] | + + + | Home Phone [...] [place] | | | | | [address] | | + + + + + Care Team Providers + +------+ + | Care Tug Boat Engineer Name | Role | Phone | [...] | Frandy Simons DO | [address] | | | | | of skin | [address] | [place], | | | | | sensation | [address] | [place] | | | | | Arthrodesis | [place], [place] | [address] | | | | | status Left | [address] | Phone: | | | | | leg | Phone: | [phone] | | | | | weakness | [phone] | Fax: | | | | | Procedures | Fax: | [phone] | | | | | MRI Lumbar | [phone] | | | | | | Spine [...] | Frandy Simons DO | [address] | | | | | of skin | [address] | [place], | | | | | sensation | [address] | [place] | | | | | Arthrodesis | [place] | [address] | | | | | status Left | [address] | Phone: | | | | | leg | Phone: | [phone] | | | | | weakness | [phone] | Fax: | | | | | Procedures | Fax: | [phone] | | | | | MRI Lumbar | [phone] | | | | | | Spine wo | | | | | | | Contrast | | | +--------+--------+ + + + + Encounter Details +--------+ + + + + | Date | Type | Department | Care Team | Description | +--------+ + + + + | 08/19/ | Hospital | [facility] | Frandy Teresa, | Status post lumbar | | 2013 | Encounter | MED CTR MRI [address] | DO [address] | spinal fusion; Left | | | | [place], | [address] [place] | leg numbness; Left | | | | [place] [address] | [address] | leg weakness | | | | [phone] | | | +--------+ + + + [...] + + + +---------+ + + | [place]-3 Fatty | Take 1,000 mg by | [...] [place] | | | | | | [address] | | | | | | | [...] the round structure with high T1 and W2henjlo in the right L3 vertebral | | [...] + | MISCELLANEOUS LAB | | | [phone] | + +---------+ + + | MISCELANIOUS LAB | | | [phone] | + +---------+ + + documented in [...]
--- OUTSIDE RECORDS SUMMARY | ~2019-09-25 | XMS | Encounter Summary ---
Demographics + + + | Address | [address] | | | [place] [address] | + + + | Home Phone | | + + + | Preferred Language | Unknown | + + + | Marital Status | | + + + | Judaism Affiliation | 1013 | + + + | Race | Unknown | + + + | Ethnic Group | Unknown | + + + Author + + + | Author | [facility] | | | and [place] | + + + | Organization | [facility] | | | and [place] | + + + | Address | Unknown | + + + | Phone | Unavailable | + + + Support + + + + + | Name | Relationship | Address | Phone | + + + + + | Aarceli Sibley | ECON | [place], [place] | | | | | [address] | | + + + + + Care Team Providers + +------+ + | Care Side Hemmer Name | Role | Phone | + +------+ + PCP | Unavailable | + +------+ + Encounter Details +--------+ + + + + | Date | Type | Department | Care Team | Description | +--------+ + + + + | 01/25/ | Hospital | [facility] | | | | 2002 | Encounter | MED CTR XRAY [address] | | | | | | [place] | | | | | | [place] [address] | | | | | | [phone] | | | +--------+ + + + [...] | | | | | [place] | | | | | | [address] | | | | | | | | +--------+---------+ + + + documented as of this encounter Visit Diagnoses Not on filedocumented in this encounter"
--- OUTSIDE RECORDS SUMMARY | ~2019-09-25 | XMS | Encounter Summary ---
Demographics + + + | Address | [address] | | | [place] [address] | + + + | Home Phone | | + + + | Preferred Language | Unknown | + + + | Marital Status | | + + + | Hoahaoism Affiliation | 1013 | + + + [...] [place] | | | | | [address] | | + + + + + Care Team Providers + +------+ + | Care Awning Spreader Name | Role | Phone | + [...] + + | 08/15/ | Documentati | [facility] | Katharine Moncada, | Other (urgent | | 2019 | on | CARDIOLOGY [place] | Technologist | report) | | | | [address] | | | | | | [place] | | | | | | [address] | | | | | | [phone] | | | +--------+ + + + [...] [place] | | | | | | [address] | | | | | | | | +--------+---------+ + + + documented as of this encounter Visit Diagnoses Not on filedocumented in this encounter"
--- OUTSIDE RECORDS SUMMARY | ~2019-09-25 | XMS | Encounter Summary ---
Demographics + + + | Address | [address] | | | [place] [address] | + + + | Home Phone [...] [place] | | | | | [address] | | + + + + + Care Team Providers + +------+ + | Care Pie Crust Mixer Name | Role | Phone | [...] + + | 08/16/ | Documentati | [facility] | Katharine Moncada, | Other (urgent | | 2019 | on | CARDIOLOGY [place] | Technologist | report) | | | | [address] | | | | | | [place] | | | | | | [address] | | | | | | [phone] | | | +--------+ + + + [...] [place] | | | | | | [address] | | | | | | | | +--------+---------+ + + + documented as of this encounter Visit Diagnoses Not on filedocumented in this encounter"
--- OUTSIDE RECORDS SUMMARY | ~2019-09-25 | XMS | Encounter Summary ---
Demographics + + + | Address | [address] | | | [place] [address] | + + + | Home Phone [...] [place] | | | | | [address] | | + + + + + Care Team Providers + +------+ + | Care Ceramic Mold Designer Name | Role | Phone | [...] | | [address] | [place] [address] | | | | | [place], [place] | [phone] | | | | | [address] | | | | | | [phone] | | | +--------+ + + + [...] | | | | | [facility] [facility] | | | | | | [address] | | | | | | | | +--------+---------+ + + + documented as of this encounter Visit Diagnoses Not on filedocumented in this encounter"
--- OUTSIDE RECORDS SUMMARY | ~2019-09-25 | XMS | Encounter Summary ---
Demographics + + + | Address | [address] | | | [place] [address] | + + + | Home Phone [...] [place], [place] | | | | | [address] | | + + + + + Care Team Providers + +------+ + | Care Wafer Production Lead Worker Name | Role | Phone | [...] Location | | | | | | [phone] | | | +--------+ + + + [...] [place] | | | | | | [address] | | | | | | | | +--------+---------+ + + + documented as of this encounter Visit Diagnoses Not on filedocumented in this encounter"
--- OUTSIDE RECORDS SUMMARY | ~2019-09-25 | XMS | Encounter Summary ---
Demographics + + + | Address | [address] | | | [place] [address] | + + + | Home Phone [...] [place] | | | | | [address] | | + + + + + Care Team Providers + +------+ + | Care Director Of Critical Care Name | Role | Phone | + [...] [address] | [address] [place], [place] | | | | | [place], [place] | [id number] | | | | | [address] | | | | | | [phone] | | | +--------+ + + + [...] | | | | | [place] | | | | | | [address] | | | | | | | | +--------+---------+ + + + documented as of this encounter Visit Diagnoses Not on filedocumented in this encounter"
--- OUTSIDE RECORDS SUMMARY | ~2019-09-25 | XMS | Encounter Summary ---
Demographics + + + | Address | [address] | | | [place] [address] | + + + | Home Phone [...] [place], [place] | | | | | [address] | | + + + + + Care Team Providers + +------+ + | Care Poured Wall Foreman Name | Role | Phone | + +------+ + PCP | Unavailable | + +------+ + Encounter Details +--------+ + + + + | Date | Type | Department | Care Team | Description | +--------+ + + + + | 05/23/ | Hospital | [facility] | Dale, Heath E A, | | | 2012 | Encounter | MED CTR XRAY [address] | MD [address] | | | | | [place] | [place] | | | | | [place] [address] | [address] | | | | | [phone] | | | +--------+ + + + [...] + + + +---------+ + + | Diclofenac Sodium | GEL Apply as | | 0 | 03/31/20 | | | (VOLTAREN TD) | directed as needed | | | 12 | 3 | + + + +---------+ + + [...] + + | furosemide (LASIX) | Take 20 mg by mouth | | 0 | 03/31/20 | | | 20 mg tablet | Daily. | | | 12 | 2 | + + + +---------+ + + | gabapentin | One tablet by mouth | | 0 | 03/29/20 | | | (NEURONTIN) 300 mg | AM, One tablet by | | | 12 | 2 | | capsule | mouth at Noon, Two | | | | | | | tablets by mouth at | | | | | | | bedtime | | | | | + + [...] + + + +---------+ + + | metformin | Take 1,000 mg by | | 0 | 03/31/20 | | | (GLUCOPHAGE) 1000 MG | mouth Daily. | | | 12 | 2 | | tablet | | | | [...] + + + +---------+ + + | [place]-3 Fatty | Take 1,000 mg by [...] + + + +---------+ + + | pravastatin | Take 10 mg by mouth | | 0 | 03/31/20 | | | (PRAVACHOL) 10 mg | nightly. | | | 12 | 2 | | tablet | | | | [...] [place] | | | | | | [address] | | | | | | | | +--------+---------+ + + + documented as of this encounter Procedures + +--------+ + + + | Procedure Name | Priori | Date/Time | Associated Diagnosis | Comments | | | ty | | | | + +--------+ + + + | MRI LUMBAR SPINE WO | | 05/23/2012 | | Results for this | | CONTRAST | | 1:32 PM | | procedure are in the | | | | PDT | | results section. | + +--------+ + + + documented in this encounter Results MRI Lumbar Spine wo Contrast (05/23/2012 1:32 PM PDT) + + | Specimen | + + | | + + + + + | Narrative | Performed At | + + + | [facility] | [facility] | | [address] | [facility] | | LUMBAR SPINE MR WITHOUT CONTRAST, | DIAG IMG | | 05/23/2012 COMPARISON: 09/2011 outside study. CLINICAL | | | HISTORY: Low back pain. TECHNIQUE: Sagittal and transaxial | | | T1, sagittal and transaxial fast spin echo PD/T2. FINDINGS: | | | Lumbar bodies demonstrate heterogeneous marrow signal consistent | | | with aging marrow changes . There are modic endplate changes at the | | | L5-S1 level. There is a minimal retrolisthesis of L5 over S1, | | | likely secondary to degenerative spondylolisthesis. Vertebral bodies | | | maintain normal heights. T he canal diameter is narrowed at the | | | lower lumbar level, secondary to acquired spondylitic changes an d | | | epidural lipomatosis. There is multilevel degenerative disk disease | | | with loss of disk height and h ydration, particularly at the L4-5 and | | | L5-S1 levels. The conus terminates normally at about the thor | | | acolumbar junction. Extra spinal structures are unremarkable. | | | Vertebral bodies also are remarkable for multilevel benign | | | hemangiomas of bone. L3-4: Broad based degenerative disk | | | bulge and facet arthropathy are present without significant cent ral | | | or lateral stenosis. L4-5: Broad based degenerative disk | | | bulge at this level produces a borderline mild degree of canal n | | | arrowing. Medial facet hypertrophy contributes to subarticular | | | recess narrowing. There is no forami nal stenosis. L5-S1: | | | There is narrowing of the caudal canal by a combination of epidural | | | lipomatosis, broad based d isk herniation, and degenerative medial | | | facet hypertrophy. There is narrowing of both right and left | | | neural foramina without definite exiting nerve root impingement. | | | IMPRESSION: 1. DEGENERATIVE SPONDYLOLISTHESIS AT L5-S1 WITH | | | MODIC ENDPLATE CHANGES AND ADVANCED HYPERTROPHIC FAC ET ARTHROPATHY. | | | THE COMBINATION OF FACET DISEASE, BROAD BASED DISK HERNIATION AND | | | EPIDURAL LIPOMATOS IS COMBINE TO PRODUCE A MODERATE DEGREE OF CANAL | | | STENOSIS AT THIS LEVEL. BILATERAL FORAMINAL NARROWI NG IS PRESENT | | | WITHOUT DEFINITE NERVE ROOT IMPINGEMENT. 2. DEGENERATIVE FACET | | | ARTHROPATHY AND MILD CANAL STENOSIS AT THE L4-5 LEVEL. | | | Dictated Date/Time: 05/23/2012 16:37 Transcribed Date/Time: | | | 05/23/2012 16:55 Budget Record Clerk: <Electronically Signed | | | by Adriano Anne MD> 05/23/12 2215 | | + + + + + | Procedure Note | + + | Manohar Martinez Conversion - 11/30/2013 5:47 PM [facility] | | Diagnostic Imaging Department [address] [place] | | LUMBAR SPINE MR WITHOUT CONTRAST, 05/23/2012 | | COMPARISON: 09/2011 outside study. CLINICAL HISTORY: Low back pain. TECHNIQUE: | | Sagittal and transaxial T1, sagittal and transaxial fast spin echo PD/T2. FINDINGS: | | Lumbar bodies demonstrate heterogeneous marrow signal consistent with aging marrow | | changes. There are modic endplate changes at the L5-S1 level. There is a minimal | | retrolisthesis of L5 over S1, likely secondary to degenerative spondylolisthesis. | | Vertebral bodies maintain normal heights. The canal diameter is narrowed at the lower | | lumbar level, secondary to acquired spondylitic changes and epidural lipomatosis. There | | is multilevel degenerative disk disease with loss of disk height and hydration, | | particularly at the L4-5 and L5-S1 levels. The conus terminates normally at about the | | thoracolumbar junction. Extra spinal structures are unremarkable. Vertebral bodies | | also are remarkable for multilevel benign hemangiomas of bone. L3-4: Broad based | | degenerative disk bulge and facet arthropathy are present without significant central or | | lateral stenosis. L4-5: Broad based degenerative disk bulge at this level produces a | | borderline mild degree of canal narrowing. Medial facet hypertrophy contributes to | | subarticular recess narrowing. There is no foraminal stenosis. L5-S1: There is | | narrowing of the caudal canal by a combination of epidural lipomatosis, broad based disk | | herniation, and degenerative medial facet hypertrophy. There is narrowing of both | | right and left neural foramina without definite exiting nerve root impingement. | | IMPRESSION: 1. DEGENERATIVE SPONDYLOLISTHESIS AT L5-S1 WITH MODIC ENDPLATE CHANGES AND | | ADVANCED HYPERTROPHIC FACET ARTHROPATHY. THE COMBINATION OF FACET DISEASE, BROAD BASED | | DISK HERNIATION AND EPIDURAL LIPOMATOSIS COMBINE TO PRODUCE A MODERATE DEGREE OF CANAL | | STENOSIS AT THIS LEVEL. BILATERAL FORAMINAL NARROWING IS PRESENT WITHOUT DEFINITE NERVE | | ROOT IMPINGEMENT. 2. DEGENERATIVE FACET ARTHROPATHY AND MILD CANAL STENOSIS AT THE | | L4-5 LEVEL. Dictated Date/Time: 05/23/2012 16:37Transcribed Date/Time: 05/23/2012 | | 16:55Transcriptionist: <Electronically Signed by Adriano Anne MD> 05/23/12 | | 1725 | | | |L5-S1: There is narrowing of the caudal canal by a combination of epidural lipomatosis, bro ad based d | |isk herniation, and degenerative medial facet hypertrophy. There is narrowing of both righ t and left | | neural foramina without definite exiting nerve root impingement. | | | |IMPRESSION: | | | |1. DEGENERATIVE SPONDYLOLISTHESIS AT L5-S1 WITH MODIC ENDPLATE CHANGES AND ADVANCED HYPERT ROPHIC FAC | |ET ARTHROPATHY. THE COMBINATION OF FACET DISEASE, BROAD BASED DISK HERNIATION AND EPIDURAL LIPOMATOS | |IS COMBINE TO PRODUCE A MODERATE DEGREE OF CANAL STENOSIS AT THIS LEVEL. BILATERAL FORAMIN AL NARROWI | |NG IS PRESENT WITHOUT DEFINITE NERVE ROOT IMPINGEMENT. | | | |2. DEGENERATIVE FACET ARTHROPATHY AND MILD CANAL STENOSIS AT THE L4-5 LEVEL. | | | | | | | | Dictated Date/Time: 05/23/2012 16:37 | |Transcribed Date/Time: 05/23/2012 16:55 | |Budget Record Clerk: | |<Electronically Signed by Adriano Anne MD> 05/23/12 1725 | + + + +---------+ + + | Performing | Address | City/State/Zipcode | Phone Number | | Organization | | | | + +---------+ + + | [place] | | | | | [facility] | | | | + +---------+ + + documented in this encounter Visit Diagnoses Not on filedocumented in this encounter"
--- OUTSIDE RECORDS SUMMARY | ~2019-09-25 | XMS | Encounter Summary ---
Demographics + + + | Address | [address] | | | [place] [address] | + + + | Home Phone [...] + | Araclei Sibley | ECON | [place], [place] | | | | | [address] | | + + + + + Care Team Providers + +------+ + | Care Type Cutter Name | Role | Phone | + +------+ + PCP | Unavailable | + +------+ + Encounter Details +--------+ + + + + | Date | Type | Department | Care Team | Description | +--------+ + + + + | 02/28/ | Hospital | [facility] | Deon Gonzales | | | 2011 | Encounter | MED CTR SLEEP | MD [place] | | | | | [place] [address] | [place] | | | | | [place], [place] | [place] [address] | | | | | [address] | [phone] | | | | | [phone] | | | +--------+ + + + [...] [place] | | | | | | [id number] | | | | | | | | +--------+---------+ + + + documented as of this encounter Visit Diagnoses Not on filedocumented in this encounter"
--- OUTSIDE RECORDS SUMMARY | ~2019-09-25 | XMS | Encounter Summary ---
Demographics + + + | Address | [address] | | | [place] [address] | + + + | Home Phone [...] [place] | | | | | [address] | | + + + + + Care Team Providers + +------+ + | Care Sap Abap Developer Name | Role | Phone | [...] [address] | [address] [place], [place] | Hypothyroidism; | | | | [place], [place] | [address] | GERD; BACK PAIN, | | | | [address] | | LUMBAR, WITH | | | | [phone] | | RADICULOPATHY; | | | | [...] [place] | | | | | | [address] | | | | | | | [...]
--- OUTSIDE RECORDS SUMMARY | ~2019-09-25 | XMS | Encounter Summary ---
Demographics + + + | Address | [address] | | | [place] [address] | + + + | Home Phone [...] [place] | | | | | [address] | | + + + + + Care Team Providers + +------+ + | Care Firefighting Equipment Specialist Name | Role | Phone | + +------+ + | Adriano Patrick MD | PCP | | + +------+ + Encounter Details +--------+ + + + + | Date | Type | Department | Care Team | Description | +--------+ + + + + | 06/10/ | Abstract | [facility] | Thierry Fry | | | 2014 | | MEDICINE [address] | MD Lisa [address] | | | | | Street [place] | [address] [place] [address] | | | | | [place] [address] | [id number] | | | | | [phone] | | | +--------+ + + + [...] | | | | | [place] | | | | | | [id number] | | | | | | | [...]
--- OUTSIDE RECORDS SUMMARY | ~2019-09-25 | XMS | Encounter Summary ---
Demographics + + + | Address | [address] | | | [place] [address] | + + + | Home Phone [...] [place], [place] | | | | | [address] | | + + + + + Care Team Providers + +------+ + | Care Electrical Manager Name | Role | Phone | + +------+ + PCP | Unavailable | + +------+ + Encounter Details +--------+ + + + + | Date | Type | Department | Care Team | Description | +--------+ + + + + | 12/31/ | Hospital | [facility] | | | | 1996 | Encounter | MED CTR XRAY [address] | | | | | | [address] | | | | | | [place] [address] | | | | | | [phone] | | | +--------+ + + + [...] | | | | | [place] | | | | | | [address] | | | | | | | | +--------+---------+ + + + documented as of this encounter Visit Diagnoses Not on filedocumented in this encounter"
--- OUTSIDE RECORDS SUMMARY | ~2019-09-25 | XMS | Encounter Summary ---
Demographics + + + | Address | [address] | | | [place] [address] | + + + | Home Phone [...] [place] | | | | | [address] | | + + + + + Care Team Providers + +------+ + | Care Development Executive Name | Role | Phone | [...] [address] | [address] [place], [place] | (Primary Dx) | | | | [place], [place] | [address] | | | | | [address] | | | | | | [phone] | | | +--------+ + + + [...] [place] | | | | | | [address] | | | | | | | [...] + | MISCELLANEOUS LAB | | | [phone] | + +---------+ + + | MISCELANIOUS LAB | | | [phone] | + +---------+ + + documented in this encounter Visit Diagnoses + + | Diagnosis | + + | Status post lumbar spinal fusion - Primary Arthrodesis status | + + documented in this encounter"
--- OUTSIDE RECORDS SUMMARY | ~2019-09-25 | XMS | Encounter Summary ---
Demographics + + + | Address | [address] | | | [place] [address] | + + + | Home Phone [...] [place], [place] | | | | | [address] | | + + + + + Care Team Providers + +------+ + | Care Metal Door Assembler Name | Role | Phone | + +------+ + PCP | Unavailable | + +------+ + Encounter Details +--------+ + + + + | Date | Type | Department | Care Team | Description | +--------+ + + + + | 06/23/ | Hospital | [facility] | | | | 2000 | Encounter | MED CTR GENERIC OP | | | | | | CONV DEPT [address] | | | | | | [place], | | | | | | [place] [address] | | | | | | [phone] | | | +--------+ + + + [...] | | | | | [place] | | | | | | [address] | | | | | | | | +--------+---------+ + + + documented as of this encounter Visit Diagnoses Not on filedocumented in this encounter"
--- OUTSIDE RECORDS SUMMARY | ~2019-09-25 | XMS | Encounter Summary ---
Demographics + + + | Address | [address] | | | [place] [address] | + + + | Home Phone [...] [place] | | | | | [address] | | + + + + + Care Team Providers + +------+ + | Care Fermenting Cellars Supervisor Name | Role | Phone | [...] + + | 09/10/ | Documentati | [facility] | Katharine Moncada, | Other (urgent | | 2019 | on | CARDIOLOGY [place] | Technologist | report) | | | | [address] | | | | | | [place] | | | | | | [address] | | | | | | [phone] | | | +--------+ + + + [...] [place] | | | | | | [address] | | | | | | | | +--------+---------+ + + + documented as of this encounter Visit Diagnoses Not on filedocumented in this encounter"
--- OUTSIDE RECORDS SUMMARY | ~2019-09-25 | XMS | Encounter Summary ---
Demographics + + + | Address | [address] | | | [place] [address] | + + + | Home Phone [...] [place] | | | | | [address] | | + + + + + Care Team Providers + +------+ + | Care Finish Machine Tender Name | Role | Phone [...] | | | | | | | [address] | | | | | | | Phone: | | | | | | | [phone] | | | | | | | Fax: | | | | | | | [phone] | | +--------+--------+ + + + + Encounter Details +--------+---------+ + + + | Date | Type | Department | Care Team | Description | +--------+---------+ + + + | 02/27/ | Office | [facility] | Baudilio Newman | Neuropathy (Primary | | 2015 | Visit | NEUROLOGY LAURIE | MD Pollo Need updated | Dx); Sleep apnea; | | | | [address] [facility], | address | Stroke (HCC); | | | | [address] [place] | | Thyroid disease | | | | [place] [address] | | | | | | [phone] | | | +--------+---------+ + + + [...] supply of blood, brain tissue quickly dies. [id number] [employer]. [address] [place] [address], [place] [address]. All righ ts reserved. This information is not intended as a substitute for professional medical care. Always follow your healthcare professional's instructions. documented in this encounter Progress Notes Baudilio Newman MD - 02/27/2015 10:31 AM PDTFormatting of this note might be differen t from the original. Baudilio Newman MD [address] [facility] [address], [address] [place] [address] Neurology Outpatient New Patient Note Referring Provider: [...] history. Notes from her recent hospitalization at [facility] were reviewed in detail. Ms. Arndt started feeling off in the evening of 02/01. She felt dizzy and laid down to slee p. Upon waking, she felt her right side was numb. She tried to get up to go to the bathroom and realized she was weak as well on the right. She was taken to [facility] where she was diagnosed with a TIA/stroke [...] systol ically. She was reevaluated in the [facility] ED for one such event and [...] hospitalization . This specimen was characterized at [facility], but the report is not currently available for [facility]. Unfortunately, Ms. Arndt notes that her right [...] Laterality: N/A; Surgeon: Frandy castellanos DO; Location: [facility] MAIN OR Current Medications: Outpatient Medications [...] tablet Take 15 mg by mouth nightly. [place]-3 Fatty Acids (FISH OIL CONCENTRATE) 1000 MG [...] BMI 46.04 kg /m2 Neck Circumference: 14" [place] Sleepiness Scale: 2 General: well developed and [...] Romberg test negative Radiographic Review: CTA from [facility] reviewed on i[facility]. No significant stenoses seen [...] No results found for this basename: hba1c, ydx6jpd, ldl, ldldirect, ldlext, dldlex Lab Results Component [...] | | | | | [place], [place] | | | | | | [id number] | | | | | | | [...]
--- OUTSIDE RECORDS SUMMARY | ~2019-09-25 | XMS | Encounter Summary ---
Demographics + + + | Address | [address] | | | [place] [address] | + + + | Home Phone [...] + + | Author | [facility] | + + + | Organization | [facility] | + + + | Address | Unknown | + + + | Phone | Unavailable | + + + Support + + + + + | Name | Relationship | Address | Phone | + + + + + | Kelsy Bautista | ECON | [address] | | | | | [place] | | | | | [address] | | + + + + + Care Team Providers + +------+ + | Care Composition Molder Name | Role | Phone | + [...] | | | | | | [place] [address] | | | | | | [phone] | | | | | | | [...] in | | | | | | [place] with a | | | | | [...] [facility] | [facility] | [facility] | | | | | | Laboratory, [place], | | | | | | [place], delivered | | | | | | [...] by | | | | | | [id number]-J: | | | | | | Increased [...] istryMHC-1: | | | | | | [id number] stain | | | | | | [...] | + + + + + | [facility] | [address] | [place] [address] | | | PATHOLOGY | [place] | | | + + + + + documented in this encounter Visit Diagnoses Not on filedocumented in this encounter
--- OUTSIDE RECORDS SUMMARY | ~2019-09-25 | XMS | Encounter Summary ---
Demographics + + + | Address | [address] | | | [place] [address] | + + + | Home Phone [...] [place] | | | | | [address] | | + + + + + Care Team Providers + +------+ + | Care Braze Operator Name | Role | Phone | [...] | | | | | | | [address] | | | | | | | Phone: | | | | | | | [phone] | | | | | | | Fax: | | | | | | | [phone] | | +--------+ + + + + + Reason for Visit + + + | Reason | Comments | + + + | Follow-up | 4 Week PO | + + + Encounter Details +--------+---------+ + + + | Date | Type | Department | Care Team | Description | +--------+---------+ + + + | 07/25/ | Office | [facility] | Frandy Teresa, | Lumbar spondylosis | | 2013 | Visit | NEUROSURGERY [address] | DO [address] | (Primary Dx); S/P | | | | [address] | [address] [place], [place] | lumbar fusion | | | | [place], [place] | [address] | | | | | [address] | | | | | | [phone] | | | +--------+---------+ + + + [...] [address] [facility], [address] [place], [place] [address] FAX: NEUROSURGERY SURGICAL FOLLOW-UP CHIEF COMPLAINT: Chief [...] Take 15 mg by mouth nightl y. [place]-3 Fatty Acids (FISH OIL CONCENTRATE) 1000 MG [...] [place] | | | | | | [id number] | | | | | | | [...] + | MISCELLANEOUS LAB | | | [phone] | + +---------+ + + | MISCELANIOUS LAB | | | [phone] | + +---------+ + + documented in this encounter Visit Diagnoses + + | Diagnosis | + + | Lumbar spondylosis - Primary Lumbosacral spondylosis without myelopathy | + + | S/P lumbar fusion Arthrodesis status | + + documented in this encounter
--- OUTSIDE RECORDS SUMMARY | ~2019-09-25 | XMS | Encounter Summary ---
Demographics + + + | Address | [address] | | | [place] [address] | + + + | Home Phone [...] [place] | | | | | [address] | | + + + + + Care Team Providers + +------+ + | Care Soldering Machine Tender Name | Role | Phone [...] + | 07/29/ | Telephone | [facility] | Frandy Teresa, | Other (multiple | | 2013 | | NEUROSURGERY [address] | DO [address] | questions) | | | | [address] | [address] [place], [place] | | | | | [place], [place] | [address] | | | | | [address] | | | | | | [phone] | | | +--------+ + + + [...] | | | | [place] | | | | | | [address] | | | | | | | | +--------+---------+ + + + documented as of this encounter Visit Diagnoses Not on filedocumented in this encounter"
--- OUTSIDE RECORDS SUMMARY | ~2019-09-25 | XMS | Encounter Summary ---
Demographics + + + | Address | [address] | | | [place] [address] | + + + | Home Phone [...] [place] | | | | | [address] | | + + + + + Care Team Providers + +------+ + | Care Girl Friday Name | Role | Phone | + +------+ + | Natalee Andersen NP | PCP | | + +------+ + Encounter Details +--------+ + + + + | Date | Type | Department | Care Team | Description | +--------+ + + + + | 06/25/ | Hospital | [facility] | Latricia Feliciano | | | 2014 | Encounter | MED CTR ACUTE | D, PT [address] | | | | | PHYSICAL THERAPY | NEFTALIE [place] PAIGE | | | | | [address] | [address] | | | | | [place] [address] | | | | | | [phone] | | | +--------+ + + + [...] + + + +---------+ + + | [place]-3 Fatty | Take 1,000 mg by | [...] [place] | | | | | | [address] | | | | | | | | +--------+---------+ + + + documented as of this encounter Visit Diagnoses Not on filedocumented in this encounter"
--- OUTSIDE RECORDS SUMMARY | ~2019-09-25 | XMS | Encounter Summary ---
Demographics + + + | Address | [address] | | | [place] [address] | + + + | Home Phone [...] [place] | | | | | [address] | | + + + + + Care Team Providers + +------+ + | Care Street Supervisor Name | Role | Phone | [...] + | 08/20/ | Documentati | [facility] | Katharine Moncada, | Other (urgent | | 2019 | on | CARDIOLOGY [place] | Technologist | report) | | | | [address] | | | | | | [place] | | | | | | [address] | | | | | | [phone] | | | +--------+ + + + [...] [place] | | | | | | [address] | | | | | | | | +--------+---------+ + + + documented as of this encounter Visit Diagnoses Not on filedocumented in this encounter"
--- OUTSIDE RECORDS SUMMARY | ~2019-09-25 | XMS | Encounter Summary ---
Demographics + + + | Address | [address] | | | [place] [address] | + + + | Home Phone [...] [place], [place] | | | | | [address] | | + + + + + Care Team Providers + +------+ + | Care Quality Compliance Manager Name | Role | Phone | + +------+ + PCP | Unavailable | + +------+ + Encounter Details +--------+ + + + + | Date | Type | Department | Care Team | Description | +--------+ + + + + | 06/19/ | Hospital | [facility] | | | | 1991 - | Encounter | MED CTR GENERIC PSY | | | | | | CONV DEPT [address] | | | | 06/24/ | | [place], | | | | 1991 | | [place] [address] | | | | | | [phone] | | | +--------+ + + + [...] [place] | | | | | | [address] | | | | | | | | +--------+---------+ + + + documented as of this encounter Visit Diagnoses Not on filedocumented in this encounter"
--- OUTSIDE RECORDS SUMMARY | ~2019-09-25 | XMS | Encounter Summary ---
Demographics + + + | Address | [address] | | | [place] [address] | + + + | Home Phone [...] [place] | | | | | [address] | | + + + + + Care Team Providers + +------+ + | Care Refrigeration Lead Name | Role | Phone | [...] | | | | | [address] | [place], [place] | | | | | [place], [place] | [address] | | | | | [address] | | | | | | [phone] | | | +--------+ + + + [...] [place] | | | | | | [address] | | | | | | | | +--------+---------+ + + + documented as of this encounter Visit Diagnoses Not on filedocumented in this encounter"
--- OUTSIDE RECORDS SUMMARY | ~2019-09-25 | XMS | Encounter Summary ---
Demographics + + + | Address | [address] | | | [place] [address] | + + + | Home Phone [...] [place], [place] | | | | | [address] | | + + + + + Care Team Providers + +------+ + | Care Coder Name | Role | Phone | + +------+ + PCP | Unavailable | + +------+ + Encounter Details +--------+ + + + + | Date | Type | Department | Care Team | Description | +--------+ + + + + | 10/29/ | Hospital | [facility] | | | | 1994 | Encounter | MED CTR LABORATORY | | | | | | [address] | | | | | | [place] | | | | | | [address] | | | | | | [phone] | | | +--------+ + + + [...] | | | | | [place] | | | | | | [address] | | | | | | | | +--------+---------+ + + + documented as of this encounter Visit Diagnoses Not on filedocumented in this encounter"
--- OUTSIDE RECORDS SUMMARY | ~2019-09-25 | XMS | Encounter Summary ---
Demographics + + + | Address | [address] | | | [place] [address] | + + + | Home Phone [...] [place] | | | | | [address] | | + + + + + Care Team Providers + +------+ + | Care Oil Rigger Name | Role | Phone | + +------+ + | Natalee Andersen NP | PCP | | + +------+ + Encounter Details +--------+ + + + + | Date | Type | Department | Care Team | Description | +--------+ + + + + | 07/06/ | Hospital | [facility] | Latricia Feliciano | | | 2014 | Encounter | MED CTR ACUTE | D, PT [address] | | | | | PHYSICAL THERAPY | NEFTALIE [place] PAIGE | | | | | [address] | [address] | | | | | [place] [address] | | | | | | [phone] | | | +--------+ + + + [...] + + + +---------+ + + | [place]-3 Fatty | Take 1,000 mg by | [...] | | | | | [place] | | | | | | [address] | | | | | | | | +--------+---------+ + + + documented as of this encounter Visit Diagnoses Not on filedocumented in this encounter"
--- OUTSIDE RECORDS SUMMARY | ~2019-09-25 | XMS | Encounter Summary ---
Demographics + + + | Address | [address] | | | [place] [address] | + + + | Home Phone [...] [place], [place] | | | | | [address] | | + + + + + Care Team Providers + +------+ + | Care Paraffin Plant Operator Name | Role | Phone | + +------+ + PCP | Unavailable | + +------+ + Encounter Details +--------+ + + + + | Date | Type | Department | Care Team | Description | +--------+ + + + + | 06/30/ | Hospital | [facility] | | | | 2000 | Encounter | MED CTR EMERGENCY | | | | | | [address] | | | | | | [place] | | | | | | [address] | | | | | | [phone] | | | +--------+ + + + [...] | | | | | [place] | | | | | | [address] | | | | | | | | +--------+---------+ + + + documented as of this encounter Visit Diagnoses Not on filedocumented in this encounter"
--- OUTSIDE RECORDS SUMMARY | ~2019-09-25 | XMS | Encounter Summary ---
Demographics + + + | Address | [address] | | | [place] [address] | + + + | Home Phone [...] [place] | | | | | [address] | | + + + + + Care Team Providers + +------+ + | Care Atm Manager Name | Role | Phone | [...] | | | spondylolist | | [address] [place] | | | | | hesis | | [place], | | | | | Spinal | | [place] [address] | | | | | stenosis, | | Phone: | | | | | lumbar | | [phone] | | | | | region, | | Fax: | | | | | without | | [phone] | | | | | neurogenic | [...] + + | 07/02/ | Hospital | [facility] | Frandy Teresa, | Spinal stenosis, | | 2013 | Encounter | MED CTR XRAY [address] | DO [address] | lumbar region, | | | | [place] | [address] [place], [place] | without neurogenic | | | | [place] [address] | [address] | claudication | | | | [phone] | | (Primary Dx) | +--------+ + [...] + + + +---------+ + + | [place]-3 Fatty | Take 1,000 mg by | [...] | 10/11/ | Office | Cardiology | Dseiree Peterson DO | | | 2019 | Visit | | [address] | | | | | | [place] | | | | | | [address] | | | | | | | [...]
--- OUTSIDE RECORDS SUMMARY | ~2019-09-25 | XMS | Encounter Summary ---
Demographics + + + | Address | [address] | | | [place] [address] | + + + | Home Phone [...] [place] | | | | | [address] | | + + + + + Care Team Providers + +------+ + | Care Cell Operation Supervisor Name | Role | Phone | [...] + + | 08/14/ | Telephone | [facility] | Ashley Chávez | Other (Patient was | | 2019 | | CARDIOLOGY [place] Abad, Engine Turner | anxious about urgent | | | | [address] | | reports. ) | | | | [place] | | | | | | [address] | | | | | | [phone] | | | +--------+ + + + [...] [place] | | | | | | [address] | | | | | | | | +--------+---------+ + + + documented as of this encounter Visit Diagnoses Not on filedocumented in this encounter"
--- OUTSIDE RECORDS SUMMARY | ~2019-09-25 | XMS | Encounter Summary ---
Demographics + + + | Address | [address] | | | [place] [address] | + + + | Home Phone [...] [place], [place] | | | | | [address] | | + + + + + Care Team Providers + +------+ + | Care Caterers Helper Name | Role | Phone | + +------+ + PCP | Unavailable | + +------+ + Encounter Details +--------+ + + + + | Date | Type | Department | Care Team | Description | +--------+ + + + + | 06/30/ | Hospital | [facility] | | | | 2000 | Encounter | MED CTR EMERGENCY | | | | | | [address] | | | | | | [place] | | | | | | [address] | | | | | | [phone] | | | +--------+ + + + [...] | | | | | [place] | | | | | | [id number] | | | | | | | | +--------+---------+ + + + documented as of this encounter Visit Diagnoses Not on filedocumented in this encounter"
--- OUTSIDE RECORDS SUMMARY | ~2019-09-25 | XMS | Encounter Summary ---
Demographics + + + | Address | [address] | | | [place] [address] | + + + | Home Phone [...] [place], [place] | | | | | [address] | | + + + + + Care Team Providers + +------+ + | Care Iv Therapy Nurse Name | Role | Phone | + +------+ + PCP | Unavailable | + +------+ + Encounter Details +--------+ + + + + | Date | Type | Department | Care Team | Description | +--------+ + + + + | 12/22/ | Hospital | [facility] | | | | 1993 - | Encounter | MED CTR GENERIC PSY | | | | | | CONV DEPT [address] | | | | 12/25/ | | [place], | | | | 1993 | | [place] [address] | | | | | | [phone] | | | +--------+ + + + [...] [place] | | | | | | [address] | | | | | | | | +--------+---------+ + + + documented as of this encounter Visit Diagnoses Not on filedocumented in this encounter"
--- OUTSIDE RECORDS SUMMARY | ~2019-09-25 | XMS | Encounter Summary ---
Demographics + + + | Address | [address] | | | [place] [address] | + + + | Home Phone [...] [place] | | | | | [address] | | + + + + + Care Team Providers + +------+ + | Care Dietetic Aide Name | Role | Phone | [...] + + | 08/14/ | Documentati | [facility] | Katharine Moncada, | Other (urgent | | 2019 | on | CARDIOLOGY [place] | Technologist | report) | | | | [address] | | | | | | [place] | | | | | | [address] | | | | | | [phone] | | | +--------+ + + + [...] [place] | | | | | | [address] | | | | | | | | +--------+---------+ + + + documented as of this encounter Visit Diagnoses Not on filedocumented in this encounter"
--- OUTSIDE RECORDS SUMMARY | ~2019-09-25 | XMS | Encounter Summary ---
Demographics + + + | Address | [address] | | | [place] [address] | + + + | Home Phone [...] [place], [place] | | | | | [address] | | + + + + + Care Team Providers + +------+ + | Care Hazard Mitigation Officer Name | Role | Phone | + +------+ + PCP | Unavailable | + +------+ + Encounter Details +--------+ + + + + | Date | Type | Department | Care Team | Description | +--------+ + + + + | 02/02/ | Hospital | [facility] | | | | 1997 | Encounter | MED CTR EMERGENCY | | | | | | [address] | | | | | | [place] | | | | | | [address] | | | | | | [phone] | | | +--------+ + + + [...] | | | | | [place] | | | | | | [address] | | | | | | | | +--------+---------+ + + + documented as of this encounter Visit Diagnoses Not on filedocumented in this encounter"
--- OUTSIDE RECORDS SUMMARY | ~2019-09-25 | XMS | Encounter Summary ---
Demographics + + + | Address | [address] | | | [place] [address] | + + + | Home Phone [...] [place] | | | | | [address] | | + + + + + Care Team Providers + +------+ + | Care Cloth Beamer Name | Role | Phone | + [...] + | 04/05/ | Telephone | [facility] [place] | [facility], | Results | | 2012 | | GASTROENTEROLOGY | FORTUNATO Thomas [address] | | | | | [address] [place] | [place], [address] | | | | | [address] [place], [place] | [place], [place] | | | | | [address] | [address] | | | | | [phone] | | | +--------+ + + + [...] [place] | | | | | | [address] | | | | | | | | +--------+---------+ + + + documented as of this encounter Visit Diagnoses Not on filedocumented in this encounter"
--- OUTSIDE RECORDS SUMMARY | ~2019-09-25 | XMS | Encounter Summary ---
Demographics + + + | Address | [address] | | | [place] [address] | + + + | Home Phone [...] [place] | | | | | [address] | | + + + + + Care Team Providers + +------+ + | Care Cricket Coach Name | Role | Phone | + [...] + + | 08/14/ | Telephone | [facility] | Ashley Chávez | Other (Patient was | | 2019 | | CARDIOLOGY [place] Abad, Transcribing Machine Mechanic | anxious about urgent | | | | [address] | | reports. ) | | | | [place] | | | | | | [address] | | | | | | [phone] | | | +--------+ + + + [...] [place] | | | | | | [address] | | | | | | | | +--------+---------+ + + + documented as of this encounter Visit Diagnoses Not on filedocumented in this encounter"
--- OUTSIDE RECORDS SUMMARY | ~2019-09-25 | XMS | Encounter Summary ---
Demographics + + + | Address | [address] | | | [place] [address] | + + + | Home Phone [...] [place] | | | | | [address] | | + + + + + Care Team Providers + +------+ + | Care Tax Specialist Name | Role | Phone | [...] 06/12/ | Office | [facility] | Chris Nicole, | Spondylisthesis | | 2013 | Visit | NEUROSURGERY [address] | PA-C [address] | (Primary Dx); | | | | [address] | [place], [place] | Radiculopathy of | | | | [place], [place] | [address] | leg; Lumbar spine | | | | [address] | | instability; Lumbar | | | | [phone] | | spondylosis; | | | | [...] rom the original. ZANE Castillo [address] [place] [address] FAX: NEUROSURGERY HISTORY AND PHYSICAL [...] Take 15 mg by mouth nightl y. [place]-3 Fatty Acids (FISH OIL CONCENTRATE) 1000 MG [...] has no apparent deficits with short or alf memory. CRANIAL NERVES: II: Acuity is intact. [...] Intrinsics 5 5 Ulnar Intrinsics 5 5 Digital Media Designer Strength 5 5 Hip Flexion 5 4* [...] | 10/11/ | Office | Cardiology | Nicholas DO Desiree | | | 2018 | Visit | | [address] | | | | | | [place] | | | | | | [address] | | | | | | | [...]
--- OUTSIDE RECORDS SUMMARY | ~2019-09-25 | XMS | Encounter Summary ---
Demographics + + + | Address | [address] | | | [place] [address] | + + + | Home Phone [...] [place], [place] | | | | | [address] | | + + + + + Care Team Providers + +------+ + | Care Woods Boss Name | Role | Phone | + +------+ + PCP | Unavailable | + +------+ + Encounter Details +--------+ + + + + | Date | Type | Department | Care Team | Description | +--------+ + + + + | 05/25/ | Hospital | [facility] | | | | 1991 | Encounter | MED CTR LABORATORY | | | | | | [address] | | | | | | [place] | | | | | | [address] | | | | | | [phone] | | | +--------+ + + + [...] | | | | | [place] | | | | | | [address] | | | | | | | | +--------+---------+ + + + documented as of this encounter Visit Diagnoses Not on filedocumented in this encounter"
--- OUTSIDE RECORDS SUMMARY | ~2019-09-25 | XMS | Encounter Summary ---
Demographics + + + | Address | [address] | | | [place] [address] | + + + | Home Phone [...] [place] | | | | | [address] | | + + + + + Care Team Providers + +------+ + | Care Hull Grinder Name | Role | Phone | [...] | 08/20/ | Documentati | [facility] | Katharine Moncada, | Other (urgent | | 2019 | on | CARDIOLOGY [place] | Technologist | report) | | | | [address] | | | | | | [place] | | | | | | [address] | | | | | | [phone] | | | +--------+ + + + [...] [place] | | | | | | [address] | | | | | | | | +--------+---------+ + + + documented as of this encounter Visit Diagnoses Not on filedocumented in this encounter"
--- OUTSIDE RECORDS SUMMARY | ~2019-09-25 | XMS | Encounter Summary ---
Demographics + + + | Address | [address] | | | [place] [address] | + + + | Home Phone [...] [place], [place] | | | | | [address] | | + + + + + Care Team Providers + +------+ + | Care Family Worker Name | Role | Phone | + +------+ + PCP | Unavailable | + +------+ + Encounter Details +--------+ + + + + | Date | Type | Department | Care Team | Description | +--------+ + + + + | 12/27/ | Hospital | [facility] | | | | 1997 - | Encounter | MED CTR GENERIC PSY | | | | | | CONV DEPT [address] | | | | 01/01/ | | [place], | | | | 1997 | | [place] [address] | | | | | | [phone] | | | +--------+ + + + [...] [place] | | | | | | [address] | | | | | | | | +--------+---------+ + + + documented as of this encounter Visit Diagnoses Not on filedocumented in this encounter"
--- OUTSIDE RECORDS SUMMARY | ~2019-09-25 | XMS | Encounter Summary ---
Demographics + + + | Address | [address] | | | [place] [address] | + + + | Home Phone [...] [place] | | | | | [address] | | + + + + + Care Team Providers + +------+ + | Care Machine Bander And Cellophaner Helper Name | Role | Phone | + +------+ + | Natalee Andersen NP | PCP | | + +------+ + Encounter Details +--------+ + + + + | Date | Type | Department | Care Team | Description | +--------+ + + + + | 09/27/ | Hospital | [facility] | Frandy Teresa, | Lumbar spondylosis; | | 2013 | Encounter | MED CTR XRAY [address] | DO [address] | S/P lumbar fusion | | | | [place] | [address] [place], [place] | | | | | [place] [address] | [address] | | | | | [phone] | | | +--------+ + + + [...] + + +---------+ + + | [place]-3 Fatty | Take 1,000 mg by | [...] [place] | | | | | | [address] | | | | | | | [...] + | MISCELLANEOUS LAB | | | [phone] | + +---------+ + + | MISCELANIOUS LAB | | | [phone] | + +---------+ + + documented in this encounter Visit Diagnoses + + | Diagnosis | + + | Lumbar spondylosis Lumbosacral spondylosis without myelopathy | + + | S/P lumbar fusion Arthrodesis status | + + documented in this encounter"
--- OUTSIDE RECORDS SUMMARY | ~2019-09-25 | XMS | Encounter Summary ---
Demographics + + + | Address | [address] | | | [place] [address] | + + + | Home Phone [...] [place] | | | | | [address] | | + + + + + Care Team Providers + +------+ + | Care Grass Farm Laborer Name | Role | Phone | + +------+ + | Natalee Andersen NP | PCP | | + +------+ + Encounter Details +--------+ + + + + | Date | Type | Department | Care Team | Description | +--------+ + + + + | 06/25/ | Hospital | [facility] | Latricia Feliciano | | | 2014 | Encounter | MED CTR ACUTE | D, PT [address] | | | | | PHYSICAL THERAPY | [place]FTALIE [place] | | | | | [address] | [address] | | | | | [place] [address] | | | | | | [phone] | | | +--------+ + + + [...] + + + +---------+ + + | [place]-3 Fatty | Take 1,000 mg by | [...] [place] | | | | | | [address] | | | | | | | | +--------+---------+ + + + documented as of this encounter Visit Diagnoses Not on filedocumented in this encounter"
--- OUTSIDE RECORDS SUMMARY | ~2019-09-25 | XMS | Encounter Summary ---
Demographics + + + | Address | [address] | | | [place] [address] | + + + | Home Phone [...] [place] | | | | | [address] | | + + + + + Care Team Providers + +------+ + | Care Tar Distillation Supervisor Name | Role | Phone | [...] + | 03/06/ | Office | [facility] | Deon Gonzales | ROGERS (obstructive | | 2012 | Visit | SLEEP DISORDER [address] | MD Laure[address] | sleep apnea) | | | | [address] [place] | [address] [place] | (Primary Dx); | | | | [place] [address] | [place] [address] | Sleepiness | | | | [phone] | [phone] | | | | | | | [...] differen t from the original. 03/06/13 1000 [place] Sleepiness Scale Sitting and reading 3 Watching [...] by mouth Daily., Disp: , Rfl: ; [place]-3 Fatty Acids (FISH OIL CONCENTRATE) 1000 MG [...] | | | | [place] | | | | | | [id number] | | | | | | | | +--------+---------+ + + + documented as of this encounter Visit Diagnoses + + | Diagnosis | + + | ROGERS (obstructive sleep apnea) - Primary Obstructive sleep apnea (adult) (pediatric) | + + | Sleepiness Other alteration of consciousness | + + documented in this encounter"
--- OUTSIDE RECORDS SUMMARY | ~2019-09-25 | XMS | Encounter Summary ---
Demographics + + + | Address | [address] | | | [place] [address] | + + + | Home Phone [...] [place] | | | | | [address] | | + + + + + Care Team Providers + +------+ + | Care Call Or Contact Centre Operator Name | Role | Phone | [...] [facility] | Ashley Chávez | Talia (Patient | | 2019 | | CARDIOLOGY GENESIS Abad, Customer Support Specialist | called to cancel her | | | | [address] | | appointment) | | | | [place] | | | | | | [address] | | | | | | [phone] | | | +--------+ + + + [...] [place] | | | | | | [address] | | | | | | | | +--------+---------+ + + + documented as of this encounter Visit Diagnoses Not on filedocumented in this encounter"
--- OUTSIDE RECORDS SUMMARY | ~2019-09-25 | XMS | Encounter Summary ---
Demographics + + + | Address | [address] | | | [place] [address] | + + + | Home Phone [...] [place] | | | | | [address] | | + + + + + Care Team Providers + +------+ + | Care Director Of Bands Name | Role | Phone | + [...] + + | 06/12/ | Office | [facility] | Chris Nicole, | Spondylisthesis | | 2013 | Visit | NEUROSURGERY [address] | PA-C [address] | (Primary Dx); | | | | [address] | [address] [place], [place] | Radiculopathy of | | | | [place] | [address] | leg; Lumbar spine | | | | [address] | | instability; Lumbar | | | | [phone] | | spondylosis; | | | | [...] rom the original. ZANE Castillo [address] [place] [address] FAX: NEUROSURGERY HISTORY AND PHYSICAL [...] Take 15 mg by mouth nightl y. [place]-3 Fatty Acids (FISH OIL CONCENTRATE) 1000 MG [...] has no apparent deficits with short or mcc memory. CRANIAL NERVES: II: Acuity is intact. [...] Intrinsics 5 5 Ulnar Intrinsics 5 5 Auto Mechanic Supervisor Strength 5 5 Hip Flexion 5 4* [...] [place] | | | | | | [address] | | | | | | | [...]
--- OUTSIDE RECORDS SUMMARY | ~2019-09-25 | XMS | Encounter Summary ---
Demographics + + + | Address | [address] | | | [place] [address] | + + + | Home Phone [...] [place] | | | | | [address] | | + + + + + Care Team Providers + +------+ + | Care Breaker Machine Operator Name | Role | Phone [...] | SLEEP DISORDER [address] | [address] | | | | | [address] [place] | [place], [place] | | | | | [place] [address] | [address] | | | | | [phone] | | | +--------+ + + + [...] | | | | | [place] | | | | | | [address] | | | | | | | | +--------+---------+ + + + documented as of this encounter Visit Diagnoses Not on filedocumented in this encounter"
--- OUTSIDE RECORDS SUMMARY | ~2019-09-25 | XMS | Encounter Summary ---
Demographics + + + | Address | [address] | | | [place] [address] | + + + | Home Phone [...] [place] | | | | | [address] | | + + + + + Care Team Providers + +------+ + | Care Elementary School Tutor Name | Role | Phone | [...] [place] | | | | | | [address] | | | | | | [phone] | | | +--------+ + + + [...] [place] | | | | | | [address] | | | | | | | | +--------+---------+ + + + documented as of this encounter Visit Diagnoses Not on filedocumented in this encounter"
--- OUTSIDE RECORDS SUMMARY | ~2019-09-25 | XMS | Encounter Summary ---
Demographics + + + | Address | [address] | | | [place] [address] | + + + | Home Phone [...] [place] | | | | | [address] | | + + + + + Care Team Providers + +------+ + | Care Consulting Nurse Name | Role | Phone | [...] + + | 04/30/ | Office | [facility] | Russell Alfaro PA | ROGERS on CPAP (Primary | | 2015 | Visit | SLEEP DISORDER [address] | [address] | Dx) | | | | [address] [place] | [place] | | | | | [place] [address] | [address] | | | | | [phone] | | | +--------+---------+ + + + [...] Insomnia Severity Index Insomnia Severity Index 13 [place] Sleepiness Scale Sitting and reading 3 Watching [...] nasal obtained from: [facility] [place] pressure: 11-20 cm Median: 12.1 cm 95%: [...] appro priate paperwork. Thirty minutes were spent [id number], with the majority of time spent i [...] | | | | | [place], [place] | | | | | | [address] | | | | | | | | +--------+---------+ + + + documented as of this encounter Visit Diagnoses + + | Diagnosis | + + | ROGERS on CPAP - Primary Obstructive sleep apnea (adult) (pediatric) | + + documented in this encounter"
--- OUTSIDE RECORDS SUMMARY | ~2019-09-25 | XMS | Encounter Summary ---
Demographics + + + | Address | [address] | | | [place] [address] | + + + | Home Phone [...] [place] | | | | | [address] | | + + + + + Care Team Providers + +------+ + | Care Qa Automation Developer Name | Role | Phone | [...] [address] | [address] [place], [place] | | | | | [place], [place] | [id number] | | | | | [address] | | | | | | [phone] | | | +--------+ + + + [...] | | | | | [place] | | | | | | [address] | | | | | | | | +--------+---------+ + + + documented as of this encounter Visit Diagnoses Not on filedocumented in this encounter"
--- OUTSIDE RECORDS SUMMARY | ~2019-09-25 | XMS | Encounter Summary ---
Demographics + + + | Address | [address] | | | [place] [address] | + + + | Home Phone [...] [place], [place] | | | | | [address] | | + + + + + Care Team Providers + +------+ + | Care State Trooper Name | Role | Phone | + +------+ + PCP | Unavailable | + +------+ + Encounter Details +--------+ + + + + | Date | Type | Department | Care Team | Description | +--------+ + + + + | 05/23/ | Hospital | [facility] | | | | 1991 | Encounter | MED CTR XRAY [address] | | | | | | [place] | | | | | | [place] [address] | | | | | | [phone] | | | +--------+ + + + [...] | | | | | [place] | | | | | | [address] | | | | | | | | +--------+---------+ + + + documented as of this encounter Visit Diagnoses Not on filedocumented in this encounter"
--- OUTSIDE RECORDS SUMMARY | ~2019-09-25 | XMS | Encounter Summary ---
Demographics + + + | Address | [address] | | | [place] [address] | + + + | Home Phone [...] [place] | | | | | [address] | | + + + + + Care Team Providers + +------+ + | Care Global Regulatory Lead Name | Role | Phone [...] + + | 02/26/ | Emergency | [facility] | [place], | CVA (cerebral | | 2015 | | MED CTR EMERGENCY | Davey Simons MD [address] | vascular accident) | | | | CENTER [address] | [address] [facility] | ([facility]) (Primary Dx) | | | | [place], [place] | [place] [address] | | | | | [address] | [phone] | | | | | [phone] | | | +--------+ + + + [...] + + + +---------+ + + | [place]-3 Fatty | Take 1,000 mg by | [...] | | | | | [place] | | | | | | [address] | | | | | | | [...] | | | | | | [facility] | | | | | | MEDICAL [...] mL/min/1.73m2 | [facility] | | | [place] | RATE,ESTIMATED | | MEDICAL | | | | mL/min/1.25c3Cdmt than | | CENTER - | | [...] | 9.1 | 8.3 - 10.5 | [facility] | | | | | mg/dL [...] [address] | [place] | [phone] | | [facility] | | [address] | | | - LABORATORY | | [...] [address] | [place] | [phone] | | [facility] | | [address] | | | - LABORATORY | | [...] | ---- | | | 02/26/2015 13:10 [facility] | | | Emergency -numbness/facial droop 02/26/2015 08:15 [facility] | | | [facility] 02/19/2015 | | | 10:15 [facility] | | | [...] as uncontrolled 02/17/2015 | | | 08:22 [facility] Emergency | | | -Long-term [...] and uterus 02/14/2015 | | | 09:56 [facility] Emergency | | | -Disturbance [...] 02/06/2015 10:46 | | | [facility] | | | [...] residual deficits | | | 02/01/2015 21:38 [facility] | | | Emergency 01/22/2015 14:00 [facility] | | | Urgent Care [...] intervertebral disc | | | 01/16/2015 12:15 [facility] | | | Urgent Care [...] other | | | medications 01/07/2015 11:45 [facility] | | | Urgent Care [...] acquired hypothyroidism 12/30/2014 | | | 17:54 [facility] Emergency | | | -Obstructive [...] essential hypertension | | | 12/30/2014 14:30 [facility] | | | Urgent Care [...] | | -Cramp of limb 11/29/2014 16:15 [facility] | | | Urgent Care [...] ------ | | | --------- [address] | | | [facility] [address] | | | [facility] 7 0 Total | | | Note: Visits indicate total known visits. Medicaid [place] Dx are the | | | number of primary diagnoses on the [facility]'s non-emergent dx list. | | [...]
--- OUTSIDE RECORDS SUMMARY | ~2019-09-25 | XMS | Encounter Summary ---
Demographics + + + | Address | [address] | | | [place] [address] | + + + | Home Phone [...] [place] | | | | | [address] | | + + + + + Care Team Providers + +------+ + | Care Manufacturing Automation Engineer Name | Role | Phone | [...] | SLEEP DISORDER 401 | [address] | | | | | [address] [place] | [place], [place] | | | | | [place] [address] | [address] | | | | | [phone] | | | +--------+ + + + [...] | | | | | [place] | | | | | | [address] | | | | | | | | +--------+---------+ + + + documented as of this encounter Visit Diagnoses Not on filedocumented in this encounter"
--- OUTSIDE RECORDS SUMMARY | ~2019-09-25 | XMS | Encounter Summary ---
Demographics + + + | Address | [address] | | | [place] [address] | + + + | Home Phone [...] [place], [place] | | | | | [address] | | + + + + + Care Team Providers + +------+ + | Care Loss Control Consultant Name | Role | Phone | + +------+ + PCP | Unavailable | + +------+ + Encounter Details +--------+ + + + + | Date | Type | Department | Care Team | Description | +--------+ + + + + | 02/22/ | Hospital | [facility] | | | | 1996 - | Encounter | MED CTR GENERIC PSY | | | | | | CONV DEPT [address] | | | | 02/26/ | | [place], | | | | 1996 | | [place] [address] | | | | | | [phone] | | | +--------+ + + + [...] | | | | | | [place] | | | | | | [address] | | | | | | | | +--------+---------+ + + + documented as of this encounter Visit Diagnoses Not on filedocumented in this encounter"
--- OUTSIDE RECORDS SUMMARY | ~2019-09-25 | XMS | Encounter Summary ---
Demographics + + + | Address | [address] | | | [place] [address] | + + + | Home Phone [...] + + + | Author | [facility] | + + + | Organization | [facility] | + + + | Address | Unknown | + + + | Phone | Unavailable | + + + Support + + + + + | Name | Relationship | Address | Phone | + + + + + | Kelsy Bautista | ECON | [address] | | | | | [place] | | | | | [address] | | + + + + + Care Team Providers + +------+ + | Care Telehealth Director Name | Role | Phone | [...] | | | | | | Leti [place]ney | | | | | | [place] [address] | | | | | | [phone] | | | +--------+ + + + [...] | | + +---------+ + + | [facility]PART[facility] OF | | | | | RADIOLOGY | | | | + +---------+ + + documented in this encounter Visit Diagnoses Not on filedocumented in this encounter"
--- OUTSIDE RECORDS SUMMARY | ~2019-09-25 | XMS | Encounter Summary ---
Demographics + + + | Address | [address] [facility] [address] [address] | | | [place] [address] | + + + | Home Phone | | + + + | Preferred Language | Unknown | + + + | Marital Status | Single | + + + | Episcopalian Affiliation | Unknown | + + + | Race | White | + + + | Ethnic Group | Not or | + + + Author + + + | Author | [facility] | + + + | Organization | [facility] | + + + | Address | Unknown | + + + | Phone | Unavailable | + + + Support + + + + + | Name | Relationship | Address | Phone | + + + + + | Kelsy Bautista | ECON | [address] | | | | | [place] | | | | | [address] | | + + + + + Care Team Providers + +------+ + | Care Account Solutions Analyst Name | Role | Phone | [...] [id number] | | | | | | [place], [place] | | | | | | [address] | | | | | | [phone] | | | +--------+ + + + [...] | + + + + + | [facility] | [address] | [place] [address] | | | PATHOLOGY | [address] [...] Re | | | | | | [phone] | | | | + + + + + + + + | Specimen | + + | | + + + + + + + | Performing | Address | City/State/Zipcode | Phone Number | | Organization | | | | + + + + + | [facility] | [address] | [place] [address] | | | PATHOLOGY | [address] [...] Re | | | | | | [phone] | | | | + + + + + + + + | Specimen | + + | | + + + + + + + | Performing | Address | City/State/Zipcode | Phone Number | | Organization | | | | + + + + + | [facility] | [address] | [place] [address] | | | PATHOLOGY | [address] [...] Re | | | | | | [phone] | | | | + + + + + + + + | Specimen | + + | | + + + + + + + | Performing | Address | City/State/Zipcode | Phone Number | | Organization | | | | + + + + + | [facility] | [address] | [place] [address] | | | PATHOLOGY | [address] [...] Re | | | | | | [address] | | | | + + + + + + + + | Specimen | + + | | + + + + + + + | Performing | Address | City/State/Zipcode | Phone Number | | Organization | | | | + + + + + | [facility] | [address] | [place] [address] | | | PATHOLOGY | [address] | | | + + + + + documented in this encounter Visit Diagnoses Not on filedocumented in this encounter"
--- OUTSIDE RECORDS SUMMARY | ~2019-09-25 | XMS | Encounter Summary ---
Demographics + + + | Address | [address] | | | [place] [address] | + + + | Home Phone [...] Author | [facility] | | | and [place] | + [...] [place] | | | | | [address] | | + + + + + Care Team Providers + +------+ + | Care Fitness Management Director Name | Role | Phone | [...] + + | 03/03/ | Telephone | [facility] | Baudilio Newman | Other (Results) | | 2014 | | NEUROLOGY LAURIE | MD Pollo Need updated | | | | | [address], | address | | | | | [address] [place] | | | | | | [place] [address] | | | | | | [phone] | | | +--------+ + + + [...] [place] | | | | | | [address] | | | | | | | | +--------+---------+ + + + documented as of this encounter Visit Diagnoses Not on filedocumented in this encounter"
--- OUTSIDE RECORDS SUMMARY | ~2019-09-25 | XMS | Encounter Summary ---
Demographics + + + | Address | [address] | | | [place] [address] | + + + | Home Phone [...] [place] | | | | | [address] | | + + + + + Care Team Providers + +------+ + | Care Cutter Inspector Name | Role | Phone | + +------+ + | Natalee Andersen NP | PCP | | + +------+ + Encounter Details +--------+ + + + + | Date | Type | Department | Care Team | Description | +--------+ + + + + | 06/26/ | Hospital | [facility] | Heather Cordero PT | | | 2014 | Encounter | MED CTR ACUTE | [address] | | | | | PHYSICAL THERAPY | [place] | | | | | [address] [place] | [address] | | | | | [place] [address] | | | | | | [phone] | | | +--------+ + + + [...] + + + +---------+ + + | [place]-3 Fatty | Take 1,000 mg by | [...] [place] | | | | | | [address] | | | | | | | | +--------+---------+ + + + documented as of this encounter Visit Diagnoses Not on filedocumented in this encounter"
--- OUTSIDE RECORDS SUMMARY | ~2019-09-25 | XMS | Encounter Summary ---
Demographics + + + | Address | [address] | | | [place] [address] | + + + | Home Phone [...] [place] | | | | | [address] | | + + + + + Care Team Providers + +------+ + | Care Histology Technician Name | Role | Phone | [...] + | 07/15/ | Telephone | [facility] | Russell Alfaro PA | Other | | 2016 | | SLEEP DISORDER [address] | [address] | | | | | [address] [place] | [place] [facility] [place] | | | | | [place] [address] | [address] | | | | | [phone] | | | +--------+ + + + [...] [place] | | | | | | [address] | | | | | | | | +--------+---------+ + + + documented as of this encounter Visit Diagnoses Not on filedocumented in this encounter"
--- OUTSIDE RECORDS SUMMARY | ~2019-09-25 | XMS | Encounter Summary ---
Demographics + + + | Address | [address] | | | [place] [address] | + + + | Home Phone [...] [place] | | | | | [address] | | + + + + + Care Team Providers + +------+ + | Care Fisheries Biologist Name | Role | Phone | + [...] + | 02/27/ | Telephone | [facility] | Katharine Cardona PA-C | Appointment (New | | 2014 | | MEDICINE [address] | [address] | Patient) | | | | [address] [place] | [place] [address] | | | | | [place] [address] | [phone] | | | | | [phone] | | | +--------+ + + + [...] [place] | | | | | | [address] | | | | | | | | +--------+---------+ + + + documented as of this encounter Visit Diagnoses Not on filedocumented in this encounter"
--- OUTSIDE RECORDS SUMMARY | ~2019-09-25 | XMS | Encounter Summary ---
Demographics + + + | Address | [address] | | | [place] [address] | + + + | Home Phone [...] [place] | | | | | [address] | | + + + + + Care Team Providers + +------+ + | Care Blanket Maker Name | Role | Phone | + +------+ + | Adriano Patrick MD | PCP | | + +------+ + Encounter Details +--------+ + + + + | Date | Type | Department | Care Team | Description | +--------+ + + + + | 06/12/ | Hospital | [facility] | Frandy Teresa, | No Show | | 2014 | Encounter | MED CTR | DO [address] | | | | | ELECTRODIAGNOSTICS | [address] [place], [place] | | | | | [address] [place] | [address] | | | | | [place] [address] | | | | | | [phone] | | | +--------+ + + + [...] [place] | | | | | | [address] | | | | | | | | +--------+---------+ + + + documented as of this encounter Visit Diagnoses Not on filedocumented in this encounter"
--- OUTSIDE RECORDS SUMMARY | ~2019-09-25 | XMS | Encounter Summary ---
Demographics + + + | Address | [address] | | | [place] [address] | + + + | Home Phone [...] [place], [place] | | | | | [address] | | + + + + + Care Team Providers + +------+ + | Care Brush Maker Machine Name | Role | Phone | + +------+ + PCP | Unavailable | + +------+ + Encounter Details +--------+ + + + + | Date | Type | Department | Care Team | Description | +--------+ + + + + | 04/16/ | [facility] | [facility] | Deon Gonzales | | | 2005 | Encounter | MED CTR SLEEP | MD Laureano [address] | | | | | [place] [address] | [place] | | | | | [place], [place] | [place] [address] | | | | | [address] | [phone] | | | | | [phone] | | | +--------+ + + + [...] [place] | | | | | | [address] | | | | | | | | +--------+---------+ + + + documented as of this encounter Visit Diagnoses Not on filedocumented in this encounter"
--- OUTSIDE RECORDS SUMMARY | ~2019-09-25 | XMS | Encounter Summary ---
Demographics + + + | Address | [address] | | | [place] [address] | + + + | Home Phone [...] [place] | | | | | [address] | | + + + + + Care Team Providers + +------+ + | Care Turn Out Worker Name | Role | Phone | [...] + + | 07/30/ | Telephone | [facility] | Ashley Chávez | Talia (Patient | | 2019 | | CARDIOLOGY GENESIS Abad, Entertainment Director | mariela ) | | | | [address] | | | | | | [place], [place] | | | | | | [address] | | | | | | [phone] | | | +--------+ + + + [...] [place] | | | | | | [address] | | | | | | | | +--------+---------+ + + + documented as of this encounter Visit Diagnoses Not on filedocumented in this encounter"
--- OUTSIDE RECORDS SUMMARY | ~2019-09-25 | XMS | Encounter Summary ---
Demographics + + + | Address | [address] | | | [place] [address] | + + + | Home Phone [...] [place] | | | | | [address] | | + + + + + Care Team Providers + +------+ + | Care Circulation Worker Name | Role | Phone | [...] | Frandy Simons DO | [address] | | | | | of skin | [address] | [place], | | | | | sensation | [address] | [place] | | | | | Arthrodesis | [place], [place] | [address] | | | | | status Left | [address] | Phone: | | | | | leg | Phone: | [phone] | | | | | weakness | [phone] | Fax: | | | | | Procedures | Fax: | [phone] | | | | | MRI Lumbar | [phone] | | | | | | Spine [...] [address] | [address] [place], [place] | | | | | [place], [place] | [address] | | | | | [address] | | | | | | [phone] | | | +--------+ + + + [...] [place] | | | | | | [address] | | | | | | | [...] the round structure with high T1 and [id number] in the right L3 vertebral | | [...] + | MISCELLANEOUS LAB | | | [phone] | + +---------+ + + | MISCELANIOUS LAB | | | [phone] | + +---------+ + + documented in [...]
--- OUTSIDE RECORDS SUMMARY | ~2019-09-25 | XMS | Encounter Summary ---
Demographics + + + | Address | [address] | | | [place] [address] | + + + | Home Phone [...] [place] | | | | | [address] | | + + + + + Care Team Providers + +------+ + | Care Munitions Handler Name | Role | Phone | + +------+ + | Basim Bolanos MD | PCP | | + +------+ + Encounter Details +--------+ + + + + | Date | Type | Department | Care Team | Description | +--------+ + + + + | 01/24/ | Abstract | [facility] [place] | [facility], | | | 2012 | | GASTROENTEROLOGY | FORTUNATO Thomas [address] | | | | | [address] | [place], [address] | | | | | [address] [place], [place] | [place], [place] | | | | | [address] | [address] | | | | | [phone] | | | +--------+ + + + [...] [place] | | | | | | [address] | | | | | | | | +--------+---------+ + + + documented as of this encounter Visit Diagnoses Not on filedocumented in this encounter"
--- OUTSIDE RECORDS SUMMARY | ~2019-09-25 | XMS | Encounter Summary ---
Demographics + + + | Address | [address] | | | [place] [address] | + + + | Home Phone [...] [place], [place] | | | | | [address] | | + + + + + Care Team Providers + +------+ + | Care Charter Coordinator Name | Role | Phone | + +------+ + PCP | Unavailable | + +------+ + Encounter Details +--------+ + + + + | Date | Type | Department | Care Team | Description | +--------+ + + + + | 06/07/ | Hospital | [facility] | | | | 1991 - | Encounter | MED CTR GENERIC OP | | | | | | CONV DEPT [address] | | | | 10/07/ | | [place], | | | | 1991 | | [place] [address] | | | | | | [phone] | | | +--------+ + + + [...] [place] | | | | | | [address] | | | | | | | | +--------+---------+ + + + documented as of this encounter Visit Diagnoses Not on filedocumented in this encounter"
--- OUTSIDE RECORDS SUMMARY | ~2019-09-25 | XMS | Encounter Summary ---
Demographics + + + | Address | [address] [address] | | | [place] [address] | + + + | Home Phone [...] [place] | | | | | [address] | | + + + + + Care Team Providers + +------+ + | Care Concert Manager Name | Role | Phone | [...] [id number] | | | | | | [place], [place] | | | | | | [address] | | | | | | [phone] | | | +--------+ + + + [...] + + + | [facility] | [address] | [place] [address] | | | PATHOLOGY | [address] [...] Re | | | | | | [phone] | | | | + + + + + + + + | Specimen | + + | | + + + + + + + | Performing | Address | City/State/Zipcode | Phone Number | | Organization | | | | + + + + + | [facility] | [address] | [place] [address] | | | PATHOLOGY | [address] [...] Re | | | | | | [address] | | | | + + + + + + + + | Specimen | + + | | + + + + + + + | Performing | Address | City/State/Zipcode | Phone Number | | Organization | | | | + + + + + | [facility] | [address] | [place] [address] | | | PATHOLOGY | [address] [...] Re | | | | | | 7546[address] | | | | + + + + + + + + | Specimen | + + | | + + + + + + + | Performing | Address | City/State/Zipcode | Phone Number | | Organization | | | | + + + + + | [facility] | [address] | [place] [address] | | | PATHOLOGY | [address] [...] Re | | | | | | [phone] | | | | + + + + + + + + | Specimen | + + | | + + + + + + + | Performing | Address | City/State/Zipcode | Phone Number | | Organization | | | | + + + + + | [facility] | [address] | [place] [address] | | | PATHOLOGY | [address] | | | + + + + + documented in this encounter Visit Diagnoses Not on filedocumented in this encounter"
--- OUTSIDE RECORDS SUMMARY | ~2019-09-25 | XMS | Encounter Summary ---
Demographics + + + | Address | [address] | | | [place] [address] | + + + | Home Phone [...] [place] | | | | | [address] | | + + + + + Care Team Providers + +------+ + | Care Acid Tank Cleaner Name | Role | Phone | + +------+ + | Basim Bolanos MD | PCP | | + +------+ + Encounter Details +--------+ + + + + | Date | Type | Department | Care Team | Description | +--------+ + + + + | 04/18/ | Abstract | [facility] [place] | [facility], | | | 2012 | | GASTROENTEROLOGY | FORTUNATO Thomas [address] | | | | | [address] | [place], [address] | | | | | [address] [place], [place] | [place], [place] | | | | | [address] | [address] | | | | | [phone] | | | +--------+ + + + [...] | | | | | [address] [place] | | | | | | [address] | | | | | | | | +--------+---------+ + + + documented as of this encounter Visit Diagnoses Not on filedocumented in this encounter"
--- OUTSIDE RECORDS SUMMARY | ~2019-09-25 | XMS | Encounter Summary ---
Demographics + + + | Address | [address] | | | [place] [address] | + + + | Home Phone [...] [place] | | | | | [address] | | + + + + + Care Team Providers + +------+ + | Care Plodding Operator Name | Role | Phone | [...] + | 07/19/ | Telephone | [facility] | Frandy Teresa, | Appointment | | 2013 | | NEUROSURGERY [address] | DO [address] | | | | | [address] | [address] [place], [place] | | | | | [place], [place] | [address] | | | | | [address] | | | | | | [phone] | | | +--------+ + + + [...] [place] | | | | | | [address] | | | | | | | | +--------+---------+ + + + documented as of this encounter Visit Diagnoses Not on filedocumented in this encounter"
--- OUTSIDE RECORDS SUMMARY | ~2019-09-25 | XMS | Encounter Summary ---
Demographics + + + | Address | [address] | | | [place] [address] | + + + | Home Phone [...] [place] | | | | | [address] | | + + + + + Care Team Providers + +------+ + | Care Plate Painter Name | Role | Phone | [...] | | | | | Procedures | MORTGAGE LENDER [address] | [address] | | | | | MT OFFICE | | [address] | | | | | CONSULTATION | [address] | [place] | | | | | NEW/ESTAB | [facility], | [address] Phone: | | | | | PATIENT 60 | [place] [address] | [phone] | | | | | MIN | Phone: | Fax: | | | | | | [phone] | [phone] | | | | | | Fax: | | | | | | | [phone] | | +--------+--------+ + + + + Encounter Details +--------+---------+ + + + | Date | Type | Department | Care Team | Description | +--------+---------+ + + + | 05/02/ | Office | [facility] | Frandy Teresa, | Spondylolisthesis of | | 2013 | Visit | NEUROSURGERY [address] | DO [address] | lumbar region | | | | [address] | [address] [place], [place] | (Primary Dx); Lumbar | | | | [place], [place] | [id number] | stenosis; Lumbar | | | | [address] | | radicular pain; | | | | [phone] | | Lumbago | +--------+---------+ + + [...] DO [address] [facility] [place] [address] FAX: NEUROSURGERY HISTORY AND PHYSICAL EXAMINATION CHIEF [...] Take 15 mg by mouth nightl y. [place]-3 Fatty Acids (FISH OIL CONCENTRATE) 1000 MG [...] has no apparent deficits with short or scrum coach memory. CRANIAL NERVES: II: Acuity is intact. [...] Intrinsics 5 5 Ulnar Intrinsics 5 5 Twister Frame Tender Strength 5 5 Hip Flexion 5 4* [...] | | | | | [place] | | | | | | [address] | | | | | | | [...]
--- OUTSIDE RECORDS SUMMARY | ~2019-09-25 | XMS | Encounter Summary ---
Demographics + + + | Address | [address] | | | [place] [address] | + + + | Home Phone [...] [place] | | | | | [address] | | + + + + + Care Team Providers + +------+ + | Care Staff Analyst Name | Role | Phone | [...] + | 09/10/ | Documentati | [facility] | Katharine Moncada, | Other (urgent | | 2019 | on | CARDIOLOGY [place] | Technologist | report) | | | | [address] | | | | | | [place] | | | | | | [address] | | | | | | [phone] | | | +--------+ + + + [...] [place] | | | | | | [address] | | | | | | | | +--------+---------+ + + + documented as of this encounter Visit Diagnoses Not on filedocumented in this encounter"
--- OUTSIDE RECORDS SUMMARY | ~2019-09-25 | XMS | Encounter Summary ---
Demographics + + + | Address | [address] | | | [place] [address] | + + + | Home Phone [...] [place], [place] | | | | | [address] | | + + + + + Care Team Providers + +------+ + | Care Leather Lacer Name | Role | Phone | + +------+ + PCP | Unavailable | + +------+ + Encounter Details +--------+ + + + + | Date | Type | Department | Care Team | Description | +--------+ + + + + | 12/06/ | Hospital | [facility] | | | | 1994 | Encounter | MED CTR LABORATORY | | | | | | [address] | | | | | | [place] | | | | | | [address] | | | | | | [phone] | | | +--------+ + + + [...] | | | | [address] [place] | | | | | | [address] | | | | | | | | +--------+---------+ + + + documented as of this encounter Visit Diagnoses Not on filedocumented in this encounter"
--- OUTSIDE RECORDS SUMMARY | ~2019-09-25 | XMS | Encounter Summary ---
Demographics + + + | Address | [address] | | | [place] [address] | + + + | Home Phone [...] [place], [place] | | | | | [address] | | + + + + + Care Team Providers + +------+ + | Care Executive Director Global Brand Marketing Name | Role | Phone | + +------+ + PCP | Unavailable | + +------+ + Encounter Details +--------+ + + + + | Date | Type | Department | Care Team | Description | +--------+ + + + + | 09/24/ | Hospital | [facility] | | | | 1993 | Encounter | MED CTR LABORATORY | | | | | | [address] | | | | | | [place] | | | | | | [address] | | | | | | [phone] | | | +--------+ + + + [...] | | | | | [place] | | | | | | [id number] | | | | | | | | +--------+---------+ + + + documented as of this encounter Visit Diagnoses Not on filedocumented in this encounter"
--- OUTSIDE RECORDS SUMMARY | ~2019-09-25 | XMS | Encounter Summary ---
Demographics + + + | Address | [address] | | | [place] [address] | + + + | Home Phone [...] [place] | | | | | [address] | | + + + + + Care Team Providers + +------+ + | Care Nutritional Services Director Name | Role | Phone | [...] | | | | | | | [address] | | | | | | | Phone: | | | | | | | [phone] | | | | | | | Fax: | | | | | | | [phone] | | +--------+ + + + + + Reason for Visit + + + | Reason | Comments | + + + | Follow-up | 3 mo po | + + + Encounter Details +--------+---------+ + + + | Date | Type | Department | Care Team | Description | +--------+---------+ + + + | 09/27/ | Office | [facility] | Frandy Teresa, | Lumbar spondylosis | | 2013 | Visit | NEUROSURGERY [address] | DO [address] | (Primary Dx); S/P | | | | [address] | [address] [place], [place] | lumbar fusion | | | | [place], [place] | [address] | | | | | [address] | | | | | | [phone] | | | +--------+---------+ + + + [...] [facility] [place], [address] [place] [address] FAX: NEUROSURGERY FOLLOW-UP CHIEF COMPLAINT: Chief Complaint [...] Laterality: N/A; Surgeon: Frandy castellanos DO; Location: [facility] MAIN OR CURRENT MEDICATIONS: Current Outpatient [...] Take 15 mg by mouth nightl y. [place]-3 Fatty Acids (FISH OIL CONCENTRATE) 1000 MG [...] | | | | | [address], [place] | | | | | | [address] | | | | | | | [...]
--- OUTSIDE RECORDS SUMMARY | ~2019-09-25 | XMS | Encounter Summary ---
Demographics + + + | Address | [address] | | | [place] [address] | + + + | Home Phone [...] [place] | | | | | [address] | | + + + + + Care Team Providers + +------+ + | Care Poultry Trimmer Name | Role | Phone | [...] + + | 04/05/ | Telephone | [facility] [place] | [facility], | Results | | 2012 | | GASTROENTEROLOGY | FORTUNATO Thomas [address] | | | | | [address] | [place], [address] | | | | | [address] [place], [place] | [place], [place] | | | | | [address] | [address] | | | | | [phone] | | | +--------+ + + + [...] [place] | | | | | | [address] | | | | | | | | +--------+---------+ + + + documented as of this encounter Visit Diagnoses Not on filedocumented in this encounter"
--- OUTSIDE RECORDS SUMMARY | ~2019-09-25 | XMS | Encounter Summary ---
Demographics + + + | Address | [address] | | | [place] [address] | + + + | Home Phone [...] [place] | | | | | [address] | | + + + + + Care Team Providers + +------+ + | Care Grain Combine Driver Name | Role | Phone | [...] | | | | | mellitus, | [address] | [place] | | | | | controlled | Phone: | [address] | | | | | (HCC) | [phone] | Phone: | | | | | History of | Fax: | [phone] | | | | | gastric | [phone] | Fax: | | | | | restrictive | | [phone] | | | | | surgery | [...] | Required | | hypertension | [address] | | | | | Lumbar | AVE [place] | [address] | | | | | radiculopath | [place], [place] | AVE | | | | | y Type 2 | [address] | [place] | | | | | diabetes | Phone: | [address] | | | | | mellitus, | [phone] | Phone: | | | | | controlled | Fax: | [phone] | | | | | (HCC) | [phone] | Fax: | | | | | Obesity, | | [phone] | | | | | Class III, [...] | | FORTUNATO & Katharine BUCIO in [place]. | + + + | Other | [...] + + | 03/06/ | Office | [facility] | Katharine Cardona PA-C | Hypothyroidism due | | 2014 | Visit | MEDICINE [address] | [address] [facility] | to acquired atrophy | | | | [address] [place] | [place] [address] | of thyroid (Primary | | | | [place] [address] | [phone] | Dx); Essential | | | | [phone] | | hypertension; Iron | | | [...] | | | | | ([facility]); Environmental | | | | | | [...] | | | | obesity) ([facility]); | | | | | | Type 2 diabetes | | | | | | mellitus, controlled | | | | | | ([facility]); Preventative | | | | | | [...] t be different from the original. Ask T[facility] if they think it might be helpful [...] Cont your meds as prescribed. F/U with [facility] as scheduled Neuropathy Continue gabapentin. May consider increase if pain is not controlled. May benefit from switching from Paxil to one of the SNRIs or TCAs for analgesic effects, holly manju, she is doing so well on her current regimen it may not be worth making any changes an d find alternate ways to deal with the pain. Would be worth discussing with [facility] Psych Back Pain Will refer to water [...] 4. Schizoaffective disorder, bipolar type ([facility]) 5. Neuropathy Vitamin B-12 6. BACK PAIN, LUMBAR, WITH RADICULOPATHY Ambulatory referral to Physical Therapy 7. ROGERS on CPAP 8. Stroke ([facility]) 9. Environmental and seasonal allergies fluticasone (FLONASE) 50 mcg/nasal spray 10. Gastroesophageal reflux disease without esophagitis dexlansoprazole (DEXILANT) 60 mg D R capsule 11. History of gastric restrictive surgery Vitamin D, 25-Hydroxy Nutrition Services - External - AMB Referral 12. Obesity, Class III, BMI 40-49.9 (morbid obesity) ([facility]) Ambulatory referral to Physical Therapy Nutrition Services - External - AMB Referral 13. Type 2 diabetes mellitus, controlled ([facility]) Ambulatory referral to Physical Therapy Nutrition Services [...] Cont your meds as prescribed. F/U with [facility] as scheduled Neuropathy Continue gabapentin. May consider [...] the pain. Would be worth discussing with [facility] professional. Back Pain Will refer to water therapy (aqua fitness) at [facility] as request ed. Cont home exercise, stretching, [...] plan. The above note was dictated using Mibio voice recognition software. It may have not been proofread in entirety. Minor errors in grammar may occur. CHIEF COMPLAINT Chief Complaint Patient presents with [facility] Presents to establish care. Former patient of [facility] in [place]. Other Possible stroke January 2015. Is now [...] auditory, at 36. 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 She is now very well controlled on Saphris, Depakote, and Paxi l. She is followed by [facility] in [place]. She has DM2 that is well controlled [...] worked up by steve rowe, Dr [place], [place]. More recently, she presented to ED with [...] Laterality: N/A; Surgeon: Frandy castellanos DO; Location: [facility] MAIN OR SOCIAL HISTORY History Social [...] mg by mouth Daily. Cholecalciferol (VITAMIN D-3) 86673 units CAPS Oral Take 50,000 Units by [...] Oral Take 10 mg by mouth nightly. [place]-3 Fatty Acids (FISH OIL CONCENTRATE) 1000 MG [...] [place] | | | | | | [id number] | | | | | | | [...] | | | | controlled ([facility]) | | | | | | Obesity, Class III, | | | | | | BMI 40-49.9 (morbid | | | | | | obesity) ([facility]) | | + + +--------+ + + | Nutrition Services - | Outpatient | Routin | Iron deficiency | Ordered: 03/06/2015 | | External - AMB | Referral | e | anemia Type 2 | | | Referral | | | diabetes mellitus, | | | | | | controlled ([facility]) | | | | | | History of gastric | | | | | | restrictive surgery | | | | | | Obesity, Class III, | | | | | | BMI 40-49.9 (morbid | | | | | | obesity) ([facility]) | | + + +--------+ + + [...] 12 | 7 - 18 mg/dL | [facility] | | | | | | [facility] | | | | | | [facility] | | | | | | [facility] - | | | | | | LABORATORY | | + + + + + + | Creatinine | 0.66 | 0.60 - 1.30 | [facility] | | | | | mg/dL | [facility] | | | | | | MEDICAL | | | | | | CENTER - | | | | | | LABORATORY | | + + + + + + | eGFR if not | >60Comment: GLOMERULAR | >=60 | [facility] | | | | FILTRATION | mL/min/1.73m2 | [facility] | | | [facility] | RATE,ESTIMATED | | MEDICAL | | | | mL/min/1.70v5Qtax than | | CENTER - | | [...] [address] | [place] | [phone] | | [facility] | | [address] | | | - LABORATORY | | [...] Type 2 diabetes mellitus, controlled ([facility]) Type II or unspecified type diabetes | | mellitus without mention of complication, not stated as uncontrolled | + + | Preventative health care Routine general medical examination at a health care | | facility | + + documented in this encounter
--- OUTSIDE RECORDS SUMMARY | ~2019-09-25 | XMS | Encounter Summary ---
Demographics + + + | Address | [address] | | | [place] [address] | + + + | Home Phone [...] [place] | | | | | [address] | | + + + + + Care Team Providers + +------+ + | Care Outside Machinist Apprentice Name | Role | Phone | [...] [place] | | | | | | [address] | | | | | | [phone] | | | +--------+ + + + [...] [place] | | | | | | [address] | | | | | | | | +--------+---------+ + + + documented as of this encounter Visit Diagnoses Not on filedocumented in this encounter"
--- OUTSIDE RECORDS SUMMARY | ~2019-09-25 | XMS | Encounter Summary ---
Demographics + + + | Address | [address] | | | [place] [address] | + + + | Home Phone [...] [place] | | | | | [address] | | + + + + + Care Team Providers + +------+ + | Care Chair Trimmer Name | Role | Phone | [...] [address] | | | | | [place], [place] | Shaheen Simons | | | | | [address] | [place] [address] | | | | | [phone] | [phone] | | | | | | | [...] [place] | | | | | | [address] | | | | | | | [...] GIVEN Testing | | | performed at [facility];[address] [place] [id number] CULTURE | | | 50,000 TO 100,000 CFU/ML | | | MIXED GRAM POSITIVE HAIDER NO SUSCEPTIBILITY TO FOLLOW | | | MULTIPLE ORGANISM TYPES PRESENT, | | | SUGGESTIVE OF CONTAMINATION OR COLONIZATION. SUGGEST RECOLLECTION FOR | | | CULTURE. Testing | | | performed at [facility];[address] [place] [address];[place] [address] REPORT | | | STATUS 06/08/2012 FINAL [...]
--- OUTSIDE RECORDS SUMMARY | ~2019-09-25 | XMS | Encounter Summary ---
Demographics + + + | Address | [address] | | | [place] [address] | + + + | Home Phone [...] [place] | | | | | [address] | | + + + + + Care Team Providers + +------+ + | Care Blueprint Processor Name | Role | Phone | [...] | | | | | fusion | [place] | | | | | | | [address] | | | | | | | Phone: | | | | | | | [phone] | | | | | | | Fax: | | | | | | | [phone] | | +--------+ + + + + + Reason for Visit + + + | Reason | Comments | + + + | Follow-up | 3 mo po | + + + Encounter Details +--------+---------+ + + + | Date | Type | Department | Care Team | Description | +--------+---------+ + + + | 09/27/ | Office | [facility] | Frandy Teresa, | Lumbar spondylosis | | 2013 | Visit | NEUROSURGERY [address] | DO [address] | (Primary Dx); S/P | | | | [address] | [address] [place], [place] | lumbar fusion | | | | [place], [place] | [address] | | | | | [address] | | | | | | [phone] | | | +--------+---------+ + + + [...] m the original. Frandy Teresa DO [address] [facility] [place] [address] FAX: NEUROSURGERY FOLLOW-UP CHIEF COMPLAINT: Chief Complaint [...] Laterality: N/A; Surgeon: Frandy castellanos DO; Location: [facility] MAIN OR CURRENT MEDICATIONS: Current [...] Take 15 mg by mouth nightl y. [place]-3 Fatty Acids (FISH OIL CONCENTRATE) 1000 MG [...] | | | | | [place], [place] | | | | | | [address] | | | | | | | [...]
--- OUTSIDE RECORDS SUMMARY | ~2019-09-25 | XMS | Encounter Summary ---
Demographics + + + | Address | [address] | | | [place] [address] | + + + | Home Phone [...] [place], [place] | | | | | [address] | | + + + + + Care Team Providers + +------+ + | Care Market Research Analyst Name | Role | Phone | + +------+ + PCP | Unavailable | + +------+ + Encounter Details +--------+ + + + + | Date | Type | Department | Care Team | Description | +--------+ + + + + | 12/09/ | Hospital | [facility] | Serafin Bautista | | | 2012 | Encounter | MED CTR XRAY [address] | T, MD [address] | | | | | [place] | ST [place], [place] | | | | | [place] [address] | [address] | | | | | [phone] | | | +--------+ + + + [...] [place] | | | | | | [address] | | | | | | | [...] Performed At | + + + | [facility] Diagnostic Imaging Department | [facility] | | [address] | [facility] | | PROCEDURE NOTE EPIDURAL [...] Martinez Conversion - 11/30/2013 4:[address] [facility] | | Diagnostic [...] + | Performing | Address | City/State/[facility] | Phone Number | | Organization | | | | + +---------+ + + | [place] | | | | | [facility] | | | | + +---------+ + + documented in this encounter Visit Diagnoses Not on filedocumented in this encounter"
--- OUTSIDE RECORDS SUMMARY | ~2019-09-25 | XMS | Encounter Summary ---
Demographics + + + | Address | [address] | | | [place] [address] | + + + | Home Phone [...] [place] | | | | | [address] | | + + + + + Care Team Providers + +------+ + | Care Radiologist Physician Name | Role | Phone | [...] + | 08/20/ | Documentati | [facility] | Katharine Moncada, | Other (urgent | | 2019 | on | CARDIOLOGY [place] | Technologist | report) | | | | [address] | | | | | | [place] | | | | | | [address] | | | | | | [phone] | | | +--------+ + + + [...] [place] | | | | | | [address] | | | | | | | | +--------+---------+ + + + documented as of this encounter Visit Diagnoses Not on filedocumented in this encounter"
--- OUTSIDE RECORDS SUMMARY | ~2019-09-25 | XMS | Encounter Summary ---
Demographics + + + | Address | [address] | | | [place] [address] | + + + | Home Phone [...] [place] | | | | | [address] | | + + + + + Care Team Providers + +------+ + | Care Fire Fighters Dispatcher Name | Role | Phone | [...] + + | 08/15/ | Documentati | [facility] | Katharine Moncada, | Other (urgent | | 2019 | on | CARDIOLOGY [place] | Technologist | report) | | | | [address] | | | | | | [place] | | | | | | [address] | | | | | | [phone] | | | +--------+ + + + [...] [place] | | | | | | [address] | | | | | | | | +--------+---------+ + + + documented as of this encounter Visit Diagnoses Not on filedocumented in this encounter"
--- OUTSIDE RECORDS SUMMARY | ~2019-09-25 | XMS | Encounter Summary ---
Demographics + + + | Address | [address] | | | [place] [address] | + + + | Home Phone [...] [place] | | | | | [address] | | + + + + + Care Team Providers + +------+ + | Care Condominium Manager Name | Role | Phone | + +------+ + | Natalee Andersen NP | PCP | | + +------+ + Encounter Details +--------+---------+ + + + | Date | Type | Department | Care Team | Description | +--------+---------+ + + + | 06/25/ | Surgery | [facility] | Frandy Teresa, | Canceled | | 2013 | | MED CTR OR INTRA OP | DO [address] | PROCEDURE NOT | | | | [address] | [address] [place], [place] | PERFORMED | | | | [place], [place] | [address] | | | | | [address] | | | | | | [phone] | | | +--------+---------+ + + + [...] + + + +---------+ + + | [place]-3 Fatty | Take 1,000 mg by | [...] | | | | | [place], [place] | | | | | | [id number] | | | | | | | [...] | | MEDICAL | | | | mL/min/[id number] than | | CENTER - | | [...] + | [facility] | [address] | [place] | [phone] | | [facility] | | [address] | | | - LABORATORY | | | | + + + + + | [facility] | [address] | [place] | | | [facility] | | [address] | | | - LABORATORY | | [...] + | [facility] | [address] | [place] | [phone] | | [facility] | | [address] | | | - LABORATORY | | | | + + + + + | [facility] | [address] | [place] | | | [facility] | | [address] | | | - LABORATORY | | [...] [address] | [place] | [phone] | | [facility] | | [address] | | | - LABORATORY | | | | + + + + + | [facility] | [address] | [place], [place] | | | [facility] | | [address] | | | - LABORATORY | | [...] [facility] | | [address] | | | - BLOOD BANK | [...] + | [facility] | [address] | [place], [place] | [phone] | | [facility] | | [address] | | | - LABORATORY | | | | + + + + + | [facility] | [address] | [place], [place] | | | [facility] | | [address] | | | - LABORATORY | | [...]
--- OUTSIDE RECORDS SUMMARY | ~2019-09-25 | XMS | Encounter Summary ---
Demographics + + + | Address | [address] | | | [place] [address] | + + + | Home Phone [...] [place], [place] | | | | | [address] | | + + + + + Care Team Providers + +------+ + | Care Conduit Cleaner Name | Role | Phone | + +------+ + PCP | Unavailable | + +------+ + Encounter Details +--------+ + + + + | Date | Type | Department | Care Team | Description | +--------+ + + + + | 09/10/ | Hospital | [facility] | | | | 1992 | Encounter | MED CTR LABORATORY | | | | | | [address] | | | | | | [place] | | | | | | [address] | | | | | | [phone] | | | +--------+ + + + [...] | | | | | [place] | | | | | | [address] | | | | | | | | +--------+---------+ + + + documented as of this encounter Visit Diagnoses Not on filedocumented in this encounter"
--- OUTSIDE RECORDS SUMMARY | ~2019-09-25 | XMS | Encounter Summary ---
Demographics + + + | Address | [address] | | | [place] [address] | + + + | Home Phone [...] [place] | | | | | [address] | | + + + + + Care Team Providers + +------+ + | Care Logistics Research Engineer Name | Role | Phone [...] + | 06/20/ | Telephone | [facility] | Frandy Teresa, | Other (surgery | | 2013 | | NEUROSURGERY [address] | DO [address] | reminder ) | | | | [address] | [address] [place], [place] | | | | | [place], [place] | [address] | | | | | [address] | | | | | | [phone] | | | +--------+ + + + [...] | | | | | [place] | | | | | | [address] | | | | | | | | +--------+---------+ + + + documented as of this encounter Visit Diagnoses Not on filedocumented in this encounter"
--- OUTSIDE RECORDS SUMMARY | ~2019-09-25 | XMS | Encounter Summary ---
Demographics + + + | Address | [address] | | | [place] [address] | + + + | Home Phone [...] [place] | | | | | [address] | | + + + + + Care Team Providers + +------+ + | Care Engineering Programmer Name | Role | Phone | [...] + + | 08/16/ | Documentati | [facility] | Katharine Moncada, | Other (urgent | | 2019 | on | CARDIOLOGY [place] | Technologist | report) | | | | [address] | | | | | | [place] | | | | | | [address] | | | | | | [phone] | | | +--------+ + + + [...] [place] | | | | | | [address] | | | | | | | | +--------+---------+ + + + documented as of this encounter Visit Diagnoses Not on filedocumented in this encounter"
--- OUTSIDE RECORDS SUMMARY | ~2019-09-25 | XMS | Encounter Summary ---
Demographics + + + | Address | [address] | | | [place] [address] | + + + | Home Phone [...] [place] | | | | | [address] | | + + + + + Care Team Providers + +------+ + | Care Office Professional Name | Role | Phone | [...] | Frandy Simons DO | [address] | | | | | of skin | [address] | [place], | | | | | sensation | [address] | [place] | | | | | Arthrodesis | [place], [place] | [address] | | | | | status Left | [address] | Phone: | | | | | leg | Phone: | [phone] | | | | | weakness | [phone] | Fax: | | | | | Procedures | Fax: | [phone] | | | | | MRI Lumbar | [phone] | | | | | | Spine [...] [address] | [address] [place], [place] | | | | | [place], [place] | [address] | | | | | [address] | | | | | | [phone] | | | +--------+ + + + [...] [place] | | | | | | [address] | | | | | | | [...] the round structure with high T1 and K4crxvff in the right L3 vertebral | | [...] + | MISCELLANEOUS LAB | | | [phone] | + +---------+ + + | MISCELANIOUS LAB | | | [phone] | + +---------+ + + documented in [...]
--- OUTSIDE RECORDS SUMMARY | ~2019-09-25 | XMS | Encounter Summary ---
Demographics + + + | Address | [address] | | | [place] [address] | + + + | Home Phone [...] [place] | | | | | [address] | | + + + + + Care Team Providers + +------+ + | Care Plant Safety Leader Name | Role | Phone | + +------+ + | Adriano Patrick MD | PCP | | + +------+ + Encounter Details +--------+ + + + + | Date | Type | Department | Care Team | Description | +--------+ + + + + | 05/16/ | Orders Only | [facility] | Provider, | | | 2018 | | SYSTEM GENERIC OP | MD [address] | | | | | CONVERSION [address] | [address] | | | | | [address] [place], [place] | [place] [address] | | | | | [address] | | | | | | [phone] | | | +--------+ + + + [...] | | | | | [place], [place] | | | | | | [address] | | | | | | | | +--------+---------+ + + + documented as of this encounter Visit Diagnoses Not on filedocumented in this encounter"
--- OUTSIDE RECORDS SUMMARY | ~2019-09-25 | XMS | Encounter Summary ---
Demographics + + + | Address | [address] | | | [place] [address] | + + + | Home Phone [...] [place] | | | | | [address] | | + + + + + Care Team Providers + +------+ + | Care Certified Lactation Counselor Name | Role | Phone | + +------+ + | Basim Bolanos MD | PCP | | + +------+ + Encounter Details +--------+ + + + + | Date | Type | Department | Care Team | Description | +--------+ + + + + | 03/30/ | Hospital | [facility] | Tyrese Neely MD | | | 2012 | Encounter | MED CTR MP INTRA OP | [address], [place] | | | | | [address] | [address] [place], [place] | | | | | [place], [place] | [address] | | | | | [address] | | | | | | [phone] | | | +--------+ + + + [...] + + + +---------+ + + | [place]-3 Fatty | Take 1,000 mg by | [...] 2019 | Visit | | [address] | | | | | | [place] | | | | | | [address] | | | | | | | [...] + | [facility] | [address] | [place] | [phone] | | [facility] | | [address] | | | - LABORATORY | | | | + + + + + | [facility] | [address] | [place] | | | [facility] | | [address] | | | - LABORATORY | | [...] + | [facility] | [address] | [place], [place] | [phone] | | [facility] | | [address] | | | - LABORATORY | | | | + + + + + | [facility] | [address] | [place], [place] | | | [facility] | | [address] | | | - LABORATORY | | | | + + + + + documented in this encounter Visit Diagnoses Not on filedocumented in this encounter"
--- OUTSIDE RECORDS SUMMARY | ~2019-09-25 | XMS | Encounter Summary ---
Demographics + + + | Address | [address] | | | [place] [address] | + + + | Home Phone [...] [place] | | | | | [address] | | + + + + + Care Team Providers + +------+ + | Care Digital Strategy Manager Name | Role | Phone | [...] + | 09/26/ | Refill | [facility] | Frandy Teresa, | Medication Refill | | 2013 | | NEUROSURGERY [address] | DO [address] | | | | | [address] | [address] [place], [place] | | | | | [place], [place] | [id number] | | | | | [address] | | | | | | [phone] | | | +--------+--------+ + + + [...] | | | | [place] | | | | | | [address] | | | | | | | | +--------+---------+ + + + documented as of this encounter Visit Diagnoses Not on filedocumented in this encounter"
--- OUTSIDE RECORDS SUMMARY | ~2019-09-25 | XMS | Encounter Summary ---
Demographics + + + | Address | [address] | | | [place] [address] | + + + | Home Phone [...] [place] | | | | | [address] | | + + + + + Care Team Providers + +------+ + | Care Sales Trainee Name | Role | Phone | [...] | | | spondylolist | | [address] | | | | | hesis | | [place], | | | | | Spinal | | [place] [address] | | | | | stenosis, | | Phone: | | | | | lumbar | | [phone] | | | | | region, | | Fax: | | | | | without | | [phone] | | | | | neurogenic | [...] | | | | | | | [place] | | | | | | [...] | | | | | | [place] | | | | | | | [...] | | | | | | [place] | | | | | | | [...] + + | 07/02/ | Surgery | [facility] | Frandy Teresa, | MIS L5-S1 | | 2013 | | MED CTR OR INTRA OP | DO [address] | TRANSFORAMINAL | | | | [address] | [address] [place], [place] | LUMBAR INTERBODY | | | | [place] | [id number] | FUSION | | | | [address] | | | | | | [phone] | | | +--------+---------+ + + + [...] might be different fro m the original. [facility] DISCHARGE SUMMARY PATIENT NAME: Cindy [...] discharge to SNF. DISPOSITION: SNF ([facility]) DISCHARGE MEDICATIONS Medications prior to admission that [...] Take 15 mg by mouth nightl y. [place]-3 Fatty Acids (FISH OIL CONCENTRATE) 1000 MG [...] + + + +---------+ + + | [place]-3 Fatty | Take 1,000 mg by | [...] prophylaxis -DC plan: SNF versus home with [facility] any time. aria T Neff RN - 07/04/2014 6:56 PM PDTFoley cath dc'd and MARI drain dc'd no problems. Chris Lynn PA-C - 07/04/2014 7:43 AM PDT [facility] PROGRESS NOTE Pt. Name/Age/: Cindy Arndt 58 y.o. 1955 Med. Record Number: [id number] Date of admission: 07/02/2014 Subjective: The patient [...] home medications. D/C plan: Home tomorrow with [facility]. D/c mari drain and riley cath today. 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 Patient Active Problem List Diagnosis LUMBAR DISC [...] signed by: Chris Nicole, 07/04/2014 7:45 [facility] Chris Lynn PA-C - 07/03/2014 7:13 AM PDT . [facility] PROGRESS NOTE Pt. Name/Age/: Cindy Arndt 58 y.o. 1955 Med. Record Number: [id number] Date of admission: 07/02/2014 Subjective: The patient [...] Electronically signed by: Chris Nicole, 07/03/2014 7:13 [facility] Ton Johnston, KRIS - 07/03/2014 6:50 [...] | | | | | [place] | | | | | | [address] | | | | | | | [...] + | [facility] | [address] | [place], [place] | [phone] | | [facility] | | [address] | | | - LABORATORY | | | | + + + + + | [facility] | [address] | [place], [place] | | | [facility] | | [address] | | | - LABORATORY | | [...] + | [facility] | [address] | [place] | [phone] | | [facility] | | [address] | | | - LABORATORY | | | | + + + + + | [facility] | [address] | [place] | | | [facility] | | [address] | | | - LABORATORY | | [...] + | [facility] | [address] | [place], [place] | [phone] | | [facility] | | [address] | | | - LABORATORY | | | | + + + + + | [facility] | [address] | [place], [place] | | | [facility] | | [address] | | | - LABORATORY | | [...] + | [facility] | [address] | [place] | [phone] | | [facility] | | [address] | | | - LABORATORY | | | | + + + + + | [facility] | [address] | [place], [place] | | | [facility] | | [address] | | | - LABORATORY | | [...] + | [facility] | [address] | [place], [place] | [phone] | | [facility] | | [address] | | | - LABORATORY | | | | + + + + + | [facility] | [address] | [place] | | | [facility] | | [address] | | | - LABORATORY | | [...] + | [facility] | [address] | [place] | [phone] | | [facility] | | [address] | | | - LABORATORY | | | | + + + + + | [facility] | [address] | [place] | | | [facility] | | [address] | | | - LABORATORY | | [...] + + | Performing | Address | City/State[facility] | Phone Number | | Organization | | | | + + + + + | [facility] | [address] | [place] | [phone] | | [facility] | | [address] | | | - LABORATORY | | | | + + + + + | [facility] | [address] | [place] | | | [facility] | | [address] | | | - LABORATORY | | [...] + | [facility] | [address] | [place] | [phone] | | [facility] | | [address] | | | - LABORATORY | | | | + + + + + | [facility] | [address] | [place] | | | [facility] | | [address] | | | - LABORATORY | | [...] [address] | [place] | [phone] | | [facility] | | [address] | | | - LABORATORY | | | | + + + + + | [facility] | [address] | [place], [place] | | | [facility] | | [address] | | | - LABORATORY | | [...] | of hardware for posterior fusion from [id number] S1 with interbody hardware at L5-S1. The [...] + | MISCELLANEOUS LAB | | | [phone] | + +---------+ + + | MISCELANIOUS LAB | | | [phone] | + +---------+ + + POC Glucose [...] + | [facility] | [address] | [place] | [phone] | | [facility] | | [address] | | | - LABORATORY | | | | + + + + + | [facility] | [address] | [place] | | | [facility] | | [address] | | | - LABORATORY | | [...] + | [facility] | [address] | [place], [place] | [phone] | | [facility] | | [address] | | | - LABORATORY | | | | + + + + + | [facility] | [address] | [place] | | | [facility] | | [address] | | | - LABORATORY | | [...] | | | POC | | | [facility] | | | | | | [...] + | [facility] | [address] | [place] | [phone] | | [facility] | | [address] | | | - LABORATORY | | | | + + + + + | [facility] | [address] | [place] | | | [facility] | | [address] | | | - LABORATORY | | [...] + | [facility] | [address] | [place] | [phone] | | [facility] | | [address] | | | - LABORATORY | | | | + + + + + | [facility] | [address] | [place] | | | [facility] | | [address] | | | - LABORATORY | | [...] + | [facility] | [address] | [place], [place] | [phone] | | [facility] | | [address] | | | - LABORATORY | | | | + + + + + | [facility] | [address] | [place], [place] | | | [facility] | | [address] | | | - LABORATORY | | [...] ST. | [address] | [place] | | | [facility] | | [address] | | | - BLOOD BANK | [...] mLs | | Surgical | | 1:200,000 0.25-1:492459 % | | 14 12:42 | | [...]
--- OUTSIDE RECORDS SUMMARY | ~2019-09-25 | XMS | Encounter Summary ---
Demographics + + + | Address | [address] | | | [place] [address] | + + + | Home Phone [...] [place], [place] | | | | | [address] | | + + + + + Care Team Providers + +------+ + | Care Digital Advisor Name | Role | Phone | + +------+ + PCP | Unavailable | + +------+ + Encounter Details +--------+ + + + + | Date | Type | Department | Care Team | Description | +--------+ + + + + | 07/23/ | Hospital | [facility] | | | | 1992 - | Encounter | MED CTR GENERIC PSY | | | | | | CONV DEPT [address] | | | | 07/28/ | | [place], | | | | 1992 | | [place] [address] | | | | | | [phone] | | | +--------+ + + + [...] [place] | | | | | | [address] | | | | | | | | +--------+---------+ + + + documented as of this encounter Visit Diagnoses Not on filedocumented in this encounter"
--- OUTSIDE RECORDS SUMMARY | ~2019-09-25 | XMS | Encounter Summary ---
Demographics + + + | Address | [address] | | | [place] [address] | + + + | Home Phone [...] + + | Author | [facility] | + + + | Organization | [facility] | + + + | Address | Unknown | + + + | Phone | Unavailable | + + + Support + + + + + | Name | Relationship | Address | Phone | + + + + + | Kelsy Bautista | E[address] | [address] | | | | | [place] | | | | | [address] | | + + + + + Care Team Providers + +------+ + | Care Check Inspector Name | Role | Phone | + +------+ + PCP | Unavailable | + +------+ + Encounter Details +--------+ + + + + | Date | Type | Department | Care Team | Description | +--------+ + + + + | 07/03/ | Office | General Internal | Note, Outpatient | Progress Note | | 1996 | Visit-Trans | Medicine [address] | Clinic | | | | [address]abelle | [address] | | | | | | Mailcode: L475 | | | | | | Outpatient Clinic | | | | | | [address] | | | | | | [place], [place] | | | | | | [address] | | | | | | [phone] | | | +--------+ + + + [...] as of this encounter Progress Notes Interface, Office Assistant In - 12/11/2006 5:03 AM [facility] DATE: 07/03/97 INFECTIOUS DISEASE CLINIC: [...]
--- OUTSIDE RECORDS SUMMARY | ~2019-09-25 | XMS | Encounter Summary ---
Demographics + + + | Address | [address] | | | [place] [address] | + + + | Home Phone [...] [place], [place] | | | | | [address] | | + + + + + Care Team Providers + +------+ + | Care Composition Floor Setter Name | Role | Phone | + +------+ + PCP | Unavailable | + +------+ + Encounter Details +--------+ + + + + | Date | Type | Department | Care Team | Description | +--------+ + + + + | 07/23/ | Hospital | [facility] | | | | 1992 - | Encounter | MED CTR GENERIC PSY | | | | | | CONV DEPT [address] | | | | 07/28/ | | [place], | | | | 1992 | | [place] [address] | | | | | | [phone] | | | +--------+ + + + [...] [place] | | | | | | [address] | | | | | | | | +--------+---------+ + + + documented as of this encounter Visit Diagnoses Not on filedocumented in this encounter"
--- OUTSIDE RECORDS SUMMARY | ~2019-09-25 | XMS | Encounter Summary ---
Demographics + + + | Address | [address] | | | [place] [address] | + + + | Home Phone [...] [place] | | | | | [address] | | + + + + + Care Team Providers + +------+ + | Care Car Changer Name | Role | Phone | + [...] + + | 04/30/ | [facility] | [facility] | Russell Alfaro PA | ROGERS on CPAP (Primary | | 2015 | Visit | SLEEP DISORDER [address] | [address] | Dx) | | | | [address] | [place] | | | | | [place] [address] | [address] | | | | | [phone] | | | +--------+---------+ + + + [...] Insomnia Severity Index Insomnia Severity Index 13 [place] Sleepiness Scale Sitting and reading 3 Watching [...] nasal obtained from: [facility] [place] pressure: 11-20 cm Median: 12.1 cm 95%: [...] appro priate paperwork. Thirty minutes were spent [id number], with the majority of time spent i [...] | | | | | [place], [place] | | | | | | [id number] | | | | | | | | +--------+---------+ + + + documented as of this encounter Visit Diagnoses + + | Diagnosis | + + | ROGERS on CPAP - Primary Obstructive sleep apnea (adult) (pediatric) | + + documented in this encounter"
--- OUTSIDE RECORDS SUMMARY | ~2019-09-25 | XMS | Encounter Summary ---
Demographics + + + | Address | [address] | | | [place] [address] | + + + | Home Phone [...] [place], [place] | | | | | [address] | | + + + + + Care Team Providers + +------+ + | Care Outside Sales Account Manager Name | Role | Phone | + +------+ + PCP | Unavailable | + +------+ + Encounter Details +--------+ + + + + | Date | Type | Department | Care Team | Description | +--------+ + + + + | 02/24/ | Hospital | [facility] | | | | 1997 | Encounter | MED CTR EMERGENCY | | | | | | ZAKIYA Stone | | | | | | [place] | | | | | | [address] | | | | | | [phone] | | | +--------+ + + + [...] | | | | | [place] | | | | | | [address] | | | | | | | | +--------+---------+ + + + documented as of this encounter Visit Diagnoses Not on filedocumented in this encounter"
--- OUTSIDE RECORDS SUMMARY | ~2019-09-25 | XMS | Encounter Summary ---
Demographics + + + | Address | [address] | | | [place] [address] | + + + | Home Phone [...] [place] | | | | | [address] | | + + + + + Care Team Providers + +------+ + | Care Jaw Skinner Name | Role | Phone | + [...] + + | 08/22/ | Documentati | [facility] | Katharine Moncada, | Other (urgent | | 2019 | on | CARDIOLOGY [place] | Technologist | report) | | | | [address] | | | | | | [place] | | | | | | [address] | | | | | | [phone] | | | +--------+ + + + [...] [place] | | | | | | [address] | | | | | | | | +--------+---------+ + + + documented as of this encounter Visit Diagnoses Not on filedocumented in this encounter"
--- OUTSIDE RECORDS SUMMARY | ~2019-09-25 | XMS | Encounter Summary ---
Demographics + + + | Address | [address] | | | [place] [address] | + + + | Home Phone [...] [place] | | | | | [address] | | + + + + + Care Team Providers + +------+ + | Care Security Control Center Operator Name | Role | Phone | [...] + + | 09/19/ | Telephone | [facility] | Ashley Chávez | Talia (Patient | | 2019 | | CARDIOLOGY [place] Abad, Viner Operator | calling to be seen | | | | [address] | | ) | | | | [place] | | | | | | [address] | | | | | | [phone] | | | +--------+ + + + [...] [place] | | | | | | [address] | | | | | | | | +--------+---------+ + + + documented as of this encounter Visit Diagnoses Not on filedocumented in this encounter"
--- OUTSIDE RECORDS SUMMARY | ~2019-09-25 | XMS | Encounter Summary ---
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 LOAD MECHANIC [address] | [address] | | | | | (gastroesoph | [address], [address]inder | [place], | | | | | ageal reflux | [address] [place] | [place] [address] | | | | | disease) | [place], [place] | Phone: | | | | | Fatty liver | [address] | [phone] | | | | | DM | Phone: | Fax: | | | | | (diabetes | [phone] | [phone] | | | | | mellitus) | Fax: | | | | | | (HCC) | [phone] | | +--------+ + + + + + Reason for Visit + + + | Reason | Comments | + + + | Gastroesophageal | epigastric pain | | Reflux | | + + + Encounter Details +--------+---------+ + + + | Date | Type | Department | Care Team | Description | +--------+---------+ + + + | 03/06/ | Office | [facility] | [facility], | Epigastric abdominal | | 2012 | Visit | GASTROENTEROLOGY | FORTUNATO Thomas [address] | pain (Primary Dx); | | | | [address] | [place], [address] | GERD | | | | [address] [place], [place] | [place], [place] | (gastroesophageal | | | | [address] | [address] | reflux disease); | | | | [phone] | | Fatty liver; DM | | [...] years ago by Dr. Saravanan Tsai, in [facility]. Colonoscopy was done 05/[address] Hamlin in [facility]. Allergies Allergen Reactions Demerol Duloxetine Erythromycin [...] | | | | | [place], [place] | | | | | | [id number] | | | | | | | [...]
--- OUTSIDE RECORDS SUMMARY | ~2019-09-25 | XMS | Encounter Summary ---
Demographics + + + | Address | [address] | | | [place] [address] | + + + | Home Phone [...] [place] | | | | | [address] | | + + + + + Care Team Providers + +------+ + | Care Street Openings Inspector Name | Role | Phone | [...] + + | 08/15/ | Documentati | [facility] | Katharine Moncada, | Other (urgent | | 2019 | on | CARDIOLOGY [place] | Technologist | report) | | | | [address] | | | | | | [place] | | | | | | [address] | | | | | | [phone] | | | +--------+ + + + [...] [place] | | | | | | [address] | | | | | | | | +--------+---------+ + + + documented as of this encounter Visit Diagnoses Not on filedocumented in this encounter"
--- OUTSIDE RECORDS SUMMARY | ~2019-09-25 | XMS | Encounter Summary ---
Demographics + + + | Address | [address] | | | [place] [address] | + + + | Home Phone [...] [facility] [place] | | | and [place] | + + + | Address | Unknown | + + + | Phone | Unavailable | + + + Support + + + + + | Name | Relationship | Address | Phone | + + + + + | Araceli Sibley | ECON | [place], [place] | | | | | [address] | | + + + + + Care Team Providers + +------+ + | Care Seat Coverer Name | Role | Phone | + +------+ + PCP | Unavailable | + +------+ + Encounter Details +--------+ + + + + | Date | Type | Department | Care Team | Description | +--------+ + + + + | 12/06/ | Hospital | [facility] | | | | 1994 | Encounter | MED CTR LABORATORY | | | | | | [address] | | | | | | [place] | | | | | | [address] | | | | | | [phone] | | | +--------+ + + + [...] | | | | [place] | | | | | | [address] | | | | | | | | +--------+---------+ + + + documented as of this encounter Visit Diagnoses Not on filedocumented in this encounter"
--- OUTSIDE RECORDS SUMMARY | ~2019-09-25 | XMS | Encounter Summary ---
Demographics + + + | Address | [address] | | | [place] [address] | + + + | Home Phone [...] [place], [place] | | | | | [address] | | + + + + + Care Team Providers + +------+ + | Care Supervisor Shuttle Preparation Name | Role | Phone | + [...] [place] | | | | | | [address] | | | | | | [phone] | | | +--------+ + + + [...] | | | | | [place] | | | | | | [address] | | | | | | | | +--------+---------+ + + + documented as of this encounter Visit Diagnoses Not on filedocumented in this encounter"
--- OUTSIDE RECORDS SUMMARY | ~2019-09-25 | XMS | Encounter Summary ---
Demographics + + + | Address | [address] | | | [place] [address] | + + + | Home Phone [...] [place] | | | | | [address] | | + + + + + Care Team Providers + +------+ + | Care Senior Geologist Name | Role | Phone | + [...] + + | 06/27/ | Office | [facility] | Yecenia Richardson, | Hypertension, | | 2019 | Visit | CARDIOLOGY [place] | MD Nitin RODRIGUES | unspecified type | | | | [address] | [place], [place] | (Primary Dx); | | | | KEV SCHAFER [facility] | [address] | Bradycardia | | | | [place] | | | | | | [address] | | | | | | [phone] | | | +--------+---------+ + + + [...] basis. Had an appointment today in [facility]. She has been feeling dizzy as [...] Take by mouth. Blood Glucose Monitoring Suppl ([employer] VERIO FLEX SYSTEM) w/Device KIT by Does [...] mg by mouth Daily. Cholecalciferol (VITAMIN D-3) 13314 units CAPS Take 50,000 Units by mouth [...] tablet Take 10 mg by mouth nightly. [place]-3 Fatty Acids (FISH OIL CONCENTRATE) 1000 MG [...] | | | | | | [place] [facility] [place] | | | | | | [address] | | | | | | | [...]
--- OUTSIDE RECORDS SUMMARY | ~2019-09-25 | XMS | Encounter Summary ---
Demographics + + + | Address | [address] | | | [place] [address] | + + + | Home Phone [...] [place], [place] | | | | | [address] | | + + + + + Care Team Providers + +------+ + | Care General Distillery Worker Name | Role | Phone | + +------+ + PCP | Unavailable | + +------+ + Encounter Details +--------+ + + + + | Date | Type | Department | Care Team | Description | +--------+ + + + + | 12/27/ | Hospital | [facility] | | | | 1995 | Encounter | MED CTR LABORATORY | | | | | | [address] | | | | | | [place] | | | | | | [address] | | | | | | [phone] | | | +--------+ + + + [...] | | | | | [place] | | | | | | [address] | | | | | | | | +--------+---------+ + + + documented as of this encounter Visit Diagnoses Not on filedocumented in this encounter"
--- OUTSIDE RECORDS SUMMARY | ~2019-09-25 | XMS | Encounter Summary ---
Demographics + + + | Address | [address] | | | [place] [address] | + + + | Home Phone [...] + | Araceli Sbiley | ECON | [place] | | | | | [address] | | + + + + + Care Team Providers + +------+ + | Care Clay Processing Factory Worker Name | Role | Phone | [...] [place] | | | | | | [address] | | | | | | [phone] | | | +--------+ + + + [...] [place] | | | | | | [address] | | | | | | | | +--------+---------+ + + + documented as of this encounter Visit Diagnoses Not on filedocumented in this encounter"
--- OUTSIDE RECORDS SUMMARY | ~2019-09-25 | XMS | Encounter Summary ---
Demographics + + + | Address | [address] | | | [place] [address] | + + + | Home Phone [...] [place] | | | | | [address] | | + + + + + Care Team Providers + +------+ + | Care Brickmason Apprentice Name | Role | Phone | [...] [address] | [place] [address] [place], [place] | fusion | | | | [place], [place] | [address] | | | | | [address] | | | | | | [phone] | | | +--------+ + + + [...] [place] | | | | | | [address] | | | | | | | | +--------+---------+ + + + documented as of this encounter Visit Diagnoses + + | Diagnosis | + + | Lumbago - Primary | + + | S/P lumbar fusion Arthrodesis status | + + documented in this encounter"
--- OUTSIDE RECORDS SUMMARY | ~2019-09-25 | XMS | Encounter Summary ---
Demographics + + + | Address | [address] | | | [place] [address] | + + + | Home Phone [...] [place], [place] | | | | | [address] | | + + + + + Care Team Providers + +------+ + | Care Automobile Assembly Supervisor Name | Role | Phone | + +------+ + PCP | Unavailable | + +------+ + Encounter Details +--------+ + + + + | Date | Type | Department | Care Team | Description | +--------+ + + + + | 12/24/ | Hospital | [facility] | | | | 1998 | Encounter | MED CTR XRAY [address] | | | | | | [address] | | | | | | [place] [address] | | | | | | [phone] | | | +--------+ + + + [...] | | | | | [place] | | | | | | [address] | | | | | | | | +--------+---------+ + + + documented as of this encounter Visit Diagnoses Not on filedocumented in this encounter"
--- OUTSIDE RECORDS SUMMARY | ~2019-09-25 | XMS | Encounter Summary ---
Demographics + + + | Address | [address] | | | [place] [address] | + + + | Home Phone [...] [place], [place] | | | | | [address] | | + + + + + Care Team Providers + +------+ + | Care Ham Passer Name | Role | Phone | + +------+ + PCP | Unavailable | + +------+ + Encounter Details +--------+ + + + + | Date | Type | Department | Care Team | Description | +--------+ + + + + | 12/27/ | Hospital | [facility] | | | | 1997 - | Encounter | MED CTR GENERIC PSY | | | | | | CONV DEPT [address] | | | | 01/01/ | | [place], | | | | 1997 | | [place] [address] | | | | | | [phone] | | | +--------+ + + + [...] [place] | | | | | | [address] | | | | | | | | +--------+---------+ + + + documented as of this encounter Visit Diagnoses Not on filedocumented in this encounter"
--- OUTSIDE RECORDS SUMMARY | ~2019-09-25 | XMS | Encounter Summary ---
Demographics + + + | Address | [address] | | | [place] [address] | + + + | Home Phone [...] [place], [place] | | | | | [address] | | + + + + + Care Team Providers + +------+ + | Care Clamp Operator Name | Role | Phone | + +------+ + PCP | Unavailable | + +------+ + Encounter Details +--------+ + + + + | Date | Type | Department | Care Team | Description | +--------+ + + + + | 06/30/ | Hospital | [facility] | | | | 1999 - | Encounter | MED CTR GENERIC PSY | | | | | | CONV DEPT [address] | | | | 07/05/ | | [address], | | | | 1999 | | [place] [address] | | | | | | [phone] | | | +--------+ + + + [...] [place] | | | | | | [address] | | | | | | | | +--------+---------+ + + + documented as of this encounter Visit Diagnoses Not on filedocumented in this encounter"
--- OUTSIDE RECORDS SUMMARY | ~2019-09-25 | XMS | Encounter Summary ---
Demographics + + + | Address | [address] | | | [place] [address] | + + + | Home Phone [...] [place] | | | | | [address] | | + + + + + Care Team Providers + +------+ + | Care Manager Compliance Name | Role | Phone | + [...] + + | 09/10/ | Documentati | [facility] | Katharine Moncada, | Other (urgent | | 2019 | on | CARDIOLOGY [place] | Technologist | report) | | | | [address] | | | | | | [place] | | | | | | [address] | | | | | | [phone] | | | +--------+ + + + [...] [place] | | | | | | [address] | | | | | | | | +--------+---------+ + + + documented as of this encounter Visit Diagnoses Not on filedocumented in this encounter"
--- OUTSIDE RECORDS SUMMARY | ~2019-09-25 | XMS | Encounter Summary ---
Demographics + + + | Address | [address] | | | [place] [address] | + + + | Home Phone [...] [place] | | | | | [address] | | + + + + + Care Team Providers + +------+ + | Care Admissions Officer Name | Role | Phone | [...] Closed | | Radiology | Diagnoses | [place], | | | | | | Thoracic or | Natalee L, | | | | | | lumbosacral | [employer] [address] | | | | | | neuritis or | [address] [place] | | | | | | | [address] | | | | | | radiculitis, | [place], | | | | | | unspecified | [place] [address] | | | | | | | Phone: | | | | | | Degeneration | [phone] | | | | | | of lumbar | Fax: | | | | | | or | [phone] | | | | | | lumbosacral [...] + + | 03/11/ | Hospital | [facility] | Natalee Andersen | Thoracic or | | 2013 | Encounter | MED CTR MRI [address] | L, [employer] [address] | lumbosacral neuritis | | | | [place], | [address] [place] [address] | or radiculitis, | | | | [place] [address] | [place] [address] | unspecified; | | | | [phone] | [phone] | Degeneration of | | | | [...] + + + +---------+ + + | [place]-3 Fatty | Take 1,000 mg by | [...] [place] | | | | | | [address] | | | | | | | [...] + | MISCELLANEOUS LAB | | | [phone] | + +---------+ + + | MISCELANIOUS LAB | | | [phone] | + +---------+ + + documented in this encounter Visit Diagnoses + + | Diagnosis | + + | Thoracic or lumbosacral neuritis or radiculitis, unspecified | + + | Degeneration of lumbar or lumbosacral intervertebral disc | + + documented in this encounter"
--- OUTSIDE RECORDS SUMMARY | ~2019-09-25 | XMS | Encounter Summary ---
Demographics + + + | Address | [address] | | | [place] [address] | + + + | Home Phone [...] [place] | | | | | [address] | | + + + + + Care Team Providers + +------+ + | Care Duplication Specialist Name | Role | Phone | [...] + + | 08/08/ | Telephone | [facility] | Ashley Chávez | Other (Questions | | 2019 | | CARDIOLOGY [place] | Pollo, Loan Clerk | about coverage. ) | | | | [address] | | | | | | [place] | | | | | | [address] | | | | | | [phone] | | | +--------+ + + + [...] | | | | | [place] | | | | | | [address] | | | | | | | | +--------+---------+ + + + documented as of this encounter Visit Diagnoses Not on filedocumented in this encounter"
--- OUTSIDE RECORDS SUMMARY | ~2019-09-25 | XMS | Encounter Summary ---
Demographics + + + | Address | [address] | | | [place] [address] | + + + | Home Phone [...] [place] | | | | | [address] | | + + + + + Care Team Providers + +------+ + | Care Corporate Quality Manager Name | Role | Phone | + +------+ + | Adriano Patrick MD | PCP | | + +------+ + Encounter Details +--------+ + + + + | Date | Type | Department | Care Team | Description | +--------+ + + + + | 06/12/ | Hospital | [facility] | Frandy Teresa, | No Show | | 2014 | Encounter | MED CTR | DO [address] | | | | | ELECTRODIAGNOSTICS | [place] [address] [place], [place] | | | | | [address] [place] | [address] | | | | | [place] [address] | | | | | | [phone] | | | +--------+ + + + [...] [place] | | | | | | [address] | | | | | | | | +--------+---------+ + + + documented as of this encounter Visit Diagnoses Not on filedocumented in this encounter"
--- OUTSIDE RECORDS SUMMARY | ~2019-09-25 | XMS | Encounter Summary ---
Demographics + + + | Address | [address] | | | [place] [address] | + + + | Home Phone [...] [place] | | | | | [address] | | + + + + + Care Team Providers + +------+ + | Care Rest Room Maid Name | Role | Phone | + [...] + + | 07/19/ | Office | [facility] | Desiree Peterson DO | Syncope, unspecified | | 2019 | Visit | CARDIOLOGY [place] | [address] | syncope type | | | | [address] | [place], [place] | (Primary Dx); | | | | [address] [place] | [address] | Essential | | | | [place] | | hypertension; | | | | [address] | | Irregular heartbeat | | | | [phone] | | | +--------+---------+ + + + [...] DO - 07/19/2019 10:[address] [facility] Cardiology Cardiology Follow Up Note Reason [...] by mouth daily. Blood Glucose Monitoring Suppl ([employer] VERIO FLEX SYSTEM) w/Device KIT by Does not ap ply route. budesonide-formoterol (SYMBICORT) 160-4.5 MCG/ACT inhaler Inhale 2 puffs into the lungs 2 (two) times daily. Calcium Carbonate Antacid 1000 MG tablet Take 1,000 mg by mouth 3 (three) times daily. Cholecalciferol (VITAMIN D3) 38045 units CAPS Take by mouth once a [...] [place] | | | | | | [address] | | | | | | | [...]
--- OUTSIDE RECORDS SUMMARY | ~2019-09-25 | XMS | Encounter Summary ---
Demographics + + + | Address | [address] | | | [place] [address] | + + + | Home Phone [...] [place] | | | | | [address] | | + + + + + Care Team Providers + +------+ + | Care Cd Reactor Operator Head Name | Role | Phone | [...] [address] | | | | | [place], [place] | Shaheen Simons | | | | | [address] | [place] [address] | | | | | [phone] | [phone] | | | | | | | [...] [place] | | | | | | [address] | | | | | | | [...] | | | performed at [facility];[address] [place] [address] CULTURE | | | 50,000 TO 100,000 CFU/ML | | | MIXED GRAM POSITIVE HAIDER NO SUSCEPTIBILITY TO FOLLOW | | | MULTIPLE ORGANISM TYPES PRESENT, | | | SUGGESTIVE OF CONTAMINATION OR COLONIZATION. SUGGEST RECOLLECTION FOR | | | CULTURE. Testing | | | performed at [facility];[address] [place] [address];[place] [address] REPORT | | | STATUS 06/08/2012 FINAL [...]
--- OUTSIDE RECORDS SUMMARY | ~2019-09-25 | XMS | Encounter Summary ---
Demographics + + + | Address | [address] | | | [place] [address] | + + + | Home Phone [...] [place], [place] | | | | | [address] | | + + + + + Care Team Providers + +------+ + | Care Track Laying Equipment Operator Name | Role | Phone | + +------+ + PCP | Unavailable | + +------+ + Encounter Details +--------+ + + + + | Date | Type | Department | Care Team | Description | +--------+ + + + + | 02/02/ | Hospital | [facility] | | | | 1997 - | Encounter | MED CTR GENERIC PSY | | | | | | CONV DEPT [address] | | | | 02/05/ | | [address], | | | | 1997 | | [place] [address] | | | | | | [phone] | | | +--------+ + + + [...] [place] | | | | | | [address] | | | | | | | | +--------+---------+ + + + documented as of this encounter Visit Diagnoses Not on filedocumented in this encounter"
--- OUTSIDE RECORDS SUMMARY | ~2019-09-25 | XMS | Encounter Summary ---
Demographics + + + | Address | [address] | | | [place] [address] | + + + | Home Phone [...] [place] | | | | | [address] | | + + + + + Care Team Providers + +------+ + | Care Participant Administrator Name | Role | Phone | [...] + + | 07/10/ | Telephone | [facility] | Frandy Teresa, | Imaging Only (1 year | | 2014 | | NEUROSURGERY [address] | DO [address] | x-ray ) | | | | [address] | [address] [place], [place] | | | | | [place], [place] | [id number] | | | | | [address] | | | | | | [phone] | | | +--------+ + + + [...] [place] | | | | | | [address] | | | | | | | | +--------+---------+ + + + documented as of this encounter Visit Diagnoses Not on filedocumented in this encounter"
--- OUTSIDE RECORDS SUMMARY | ~2019-09-25 | XMS | Encounter Summary ---
Demographics + + + | Address | [address] | | | [place] [address] | + + + | Home Phone [...] [place] | | | | | [address] | | + + + + + Care Team Providers + +------+ + | Care Multimedia Assistant Name | Role | Phone | [...] 2019 | | CARDIOLOGY [place] | Pollo, Finished Garment Inspector | about coverage. ) | | | | [address] | | | | | | [place] | | | | | | [address] | | | | | | [phone] | | | +--------+ + + + [...] | | | | | [place] | | | | | | [address] | | | | | | | | +--------+---------+ + + + documented as of this encounter Visit Diagnoses Not on filedocumented in this encounter"
--- OUTSIDE RECORDS SUMMARY | ~2019-09-25 | XMS | Encounter Summary ---
Demographics + + + | Address | [address] | | | [place] [address] | + + + | Home Phone [...] [place] | | | | | [address] | | + + + + + Care Team Providers + +------+ + | Care Office Analyst Name | Role | Phone | [...] [address] | [address] [place], [place] | | | | | [place], [place] | [id number] | | | | | [address] | | | | | | [phone] | | | +--------+ + + + [...] | | | | | [place] | | | | | | [address] | | | | | | | | +--------+---------+ + + + documented as of this encounter Visit Diagnoses Not on filedocumented in this encounter"
--- OUTSIDE RECORDS SUMMARY | ~2019-09-25 | XMS | Encounter Summary ---
Demographics + + + | Address | [address] | | | [place] [address] | + + + | Home Phone [...] [place], [place] | | | | | [address] | | + + + + + Care Team Providers + +------+ + | Care Occupational Work Experience Teacher Name | Role | Phone | + +------+ + PCP | Unavailable | + +------+ + Encounter Details +--------+ + + + + | Date | Type | Department | Care Team | Description | +--------+ + + + + | 12/31/ | Hospital | [facility] | | | | 1996 | Encounter | MED CTR XRAY [address] | | | | | | [address] | | | | | | [place] [address] | | | | | | [phone] | | | +--------+ + + + [...] | | | | | [place] | | | | | | [address] | | | | | | | | +--------+---------+ + + + documented as of this encounter Visit Diagnoses Not on filedocumented in this encounter"
--- OUTSIDE RECORDS SUMMARY | ~2019-09-25 | XMS | Encounter Summary ---
Demographics + + + | Address | [address] | | | [place] [address] | + + + | Home Phone [...] [place] | | | | | [address] | | + + + + + Care Team Providers + +------+ + | Care Dock Worker Name | Role | Phone | + +------+ + | Basim Bolnaos MD | PCP | | + +------+ + Encounter Details +--------+ + + + + | Date | Type | Department | Care Team | Description | +--------+ + + + + | 02/22/ | Abstract | [facility] [place] | [facility], | | | 2012 | | GASTROENTEROLOGY | FORTUNATO Thomas [address] | | | | | [address] [place] | Cook, [address]winder [address] | | | | | [address] [place], [place] | [place], [place] | | | | | [address] | [address] | | | | | [phone] | | | +--------+ + + + [...] [place] | | | | | | [address] | | | | | | | | +--------+---------+ + + + documented as of this encounter Visit Diagnoses Not on filedocumented in this encounter"
--- OUTSIDE RECORDS SUMMARY | ~2019-09-25 | XMS | Encounter Summary ---
Demographics + + + | Address | [address] | | | [place] [address] | + + + | Home Phone [...] [place] | | | | | [address] | | + + + + + Care Team Providers + +------+ + | Care Utility Pipe Layer Name | Role | Phone | [...] + | 12/03/ | Refill | [facility] | Frandy Teresa, | Medication Refill | | 2014 | | NEUROSURGERY [address] | DO [address] | | | | | [address] | [address] [place], [place] | | | | | [place], [place] | [phone] | | | | | [address] | | | | | | [phone] | | | +--------+--------+ + + + [...] | | | | | [place] | | | | | | [address] | | | | | | | | +--------+---------+ + + + documented as of this encounter Visit Diagnoses Not on filedocumented in this encounter"
--- OUTSIDE RECORDS SUMMARY | ~2019-09-25 | XMS | Encounter Summary ---
Demographics + + + | Address | [address] | | | [place] [address] | + + + | Home Phone [...] [place] | | | | | [address] | | + + + + + Care Team Providers + +------+ + | Care Batch Records Clerk Name | Role | Phone [...] + + | 08/14/ | Documentati | [facility] | Katharine Moncada, | Other (urgent | | 2019 | on | CARDIOLOGY [place] | Technologist | report) | | | | [address] | | | | | | [place] | | | | | | [address] | | | | | | [phone] | | | +--------+ + + + [...] [place] | | | | | | [address] | | | | | | | | +--------+---------+ + + + documented as of this encounter Visit Diagnoses Not on filedocumented in this encounter"
--- OUTSIDE RECORDS SUMMARY | ~2019-09-25 | XMS | Encounter Summary ---
Demographics + + + | Address | [address] | | | [place] [address] | + + + | Home Phone [...] [place], [place] | | | | | [address] | | + + + + + Care Team Providers + +------+ + | Care Second Grade Teacher Name | Role | Phone | + +------+ + PCP | Unavailable | + +------+ + Encounter Details +--------+ + + + + | Date | Type | Department | Care Team | Description | +--------+ + + + + | 09/10/ | Hospital | [facility] | | | | 1992 | Encounter | MED CTR LABORATORY | | | | | | [address] | | | | | | [place] | | | | | | [address] | | | | | | [phone] | | | +--------+ + + + [...] | | | | | [place] | | | | | | [address] | | | | | | | | +--------+---------+ + + + documented as of this encounter Visit Diagnoses Not on filedocumented in this encounter"
--- OUTSIDE RECORDS SUMMARY | ~2019-09-25 | XMS | Encounter Summary ---
Demographics + + + | Address | [address] | | | [place] [address] | + + + | Home Phone [...] [place], [place] | | | | | [address] | | + + + + + Care Team Providers + +------+ + | Care Owner/Operator Name | Role | Phone | + +------+ + PCP | Unavailable | + +------+ + Encounter Details +--------+ + + + + | Date | Type | Department | Care Team | Description | +--------+ + + + + | 02/28/ | Hospital | [facility] | Deon Gonzales | | | 2011 | Encounter | MED CTR SLEEP | MD Laure[address] | | | | | [place] [address] | [place] | | | | | [place], [place] | [place] [address] | | | | | [address] | [phone] | | | | | [phone] | | | +--------+ + + + [...] [place] | | | | | | [address] | | | | | | | | +--------+---------+ + + + documented as of this encounter Visit Diagnoses Not on filedocumented in this encounter"
--- OUTSIDE RECORDS SUMMARY | ~2019-09-25 | XMS | Encounter Summary ---
Demographics + + + | Address | [address] | | | [place] [address] | + + + | Home Phone [...] [place], [place] | | | | | [address] | | + + + + + Care Team Providers + +------+ + | Care Processing Talc And Borate Supervisor Name | Role | Phone | [...] [place] | | | | | | [address] | | | | | | [phone] | | | +--------+ + + + [...] | | | | | [place] | | | | | | [address] | | | | | | | | +--------+---------+ + + + documented as of this encounter Visit Diagnoses Not on filedocumented in this encounter"
--- OUTSIDE RECORDS SUMMARY | ~2019-09-25 | XMS | Encounter Summary ---
Demographics + + + | Address | [address] | | | [place] [address] | + + + | Home Phone [...] [place] | | | | | [address] | | + + + + + Care Team Providers + +------+ + | Care Fisheries Technical Officer Name | Role | Phone [...] | Transcriptions | + + | Interface, Bumboater In - 11/04/2006 3:03 AM PST | | [address] | | [place], [place] [address] [facility] | | ClinicsOPERATION RECORDMed Rec No.: [...] skin retractor was put in place. The [place] elevators wereused to separate the | | [...]
--- OUTSIDE RECORDS SUMMARY | ~2019-09-25 | XMS | Encounter Summary ---
Demographics + + + | Address | [address] | | | [place] [address] | + + + | Home Phone [...] [place] | | | | | [address] | | + + + + + Care Team Providers + +------+ + | Care Probation Worker Name | Role | Phone | [...] [place] | | | | | | [address] | | | | | | [phone] | | | +--------+ + + + [...] [place] | | | | | | [address] | | | | | | | | +--------+---------+ + + + documented as of this encounter Visit Diagnoses Not on filedocumented in this encounter"
--- OUTSIDE RECORDS SUMMARY | ~2019-09-25 | XMS | Encounter Summary ---
Demographics + + + | Address | [address] | | | [place] [address] | + + + | Home Phone [...] [place] | | | | | [address] | | + + + + + Care Team Providers + +------+ + | Care Vaccine Customer Representative Name | Role | Phone | [...] [place] | | | | | | [address] | | | | | | [phone] | | | +--------+ + + + [...] [place] | | | | | | [address] | | | | | | | | +--------+---------+ + + + documented as of this encounter Visit Diagnoses Not on filedocumented in this encounter"
--- OUTSIDE RECORDS SUMMARY | ~2019-09-25 | XMS | Encounter Summary ---
Demographics + + + | Address | [address] | | | [place] [address] | + + + | Home Phone [...] [place] | | | | | [address] | | + + + + + Care Team Providers + +------+ + | Care Oracle Agile Plm Consultant Name | Role | Phone | [...] [address] | [address] [place], [place] | Hypothyroidism; | | | | [place], [place] | [address] | GERD; BACK PAIN, | | | | [address] | | LUMBAR, WITH | | | | [phone] | | RADICULOPATHY; | | | | [...] [place] | | | | | | [address] | | | | | | | [...]
--- OUTSIDE RECORDS SUMMARY | ~2019-09-25 | XMS | Encounter Summary ---
Demographics + + + | Address | [address] | | | [place] [address] | + + + | Home Phone [...] [place] | | | | | [address] | | + + + + + Care Team Providers + +------+ + | Care Advanced Seal Delivery System Name | Role | Phone | + [...] [place] | | | | | | [address] | | | | | | [phone] | | | +--------+ + + + [...] [place] | | | | | | [address] | | | | | | | | +--------+---------+ + + + documented as of this encounter Visit Diagnoses Not on filedocumented in this encounter"
--- OUTSIDE RECORDS SUMMARY | ~2019-09-25 | XMS | Encounter Summary ---
Demographics + + + | Address | [address] | | | [place] [address] | + + + | Home Phone [...] [place] | | | | | [address] | | + + + + + Care Team Providers + +------+ + | Care Collection Supervisor Name | Role | Phone | [...] + + | 07/01/ | Telephone | [facility] | Frandy Teresa, | Other (Surgery ) | | 2013 | | NEUROSURGERY [address] | DO [address] | | | | | [address] | [address] [place], [place] | | | | | [place], [place] | [address] | | | | | [address] | | | | | | [phone] | | | +--------+ + + + [...] [place] | | | | | | [address] | | | | | | | | +--------+---------+ + + + documented as of this encounter Visit Diagnoses Not on filedocumented in this encounter"
--- OUTSIDE RECORDS SUMMARY | ~2019-09-25 | XMS | Encounter Summary ---
Demographics + + + | Address | [address] | | | [place] [address] | + + + | Home Phone [...] [place] | | | | | [address] | | + + + + + Care Team Providers + +------+ + | Care Fire Protection Inspector Name | Role | Phone | [...] + + | 08/13/ | Documentati | [facility] | Katharine Moncada, | Other (urgent | | 2019 | on | CARDIOLOGY [place] | Technologist | report) | | | | [address] | | | | | | [place] | | | | | | [address] | | | | | | [phone] | | | +--------+ + + + [...] [place] | | | | | | [address] | | | | | | | | +--------+---------+ + + + documented as of this encounter Visit Diagnoses Not on filedocumented in this encounter"
--- OUTSIDE RECORDS SUMMARY | ~2019-09-25 | XMS | Encounter Summary ---
Demographics + + + | Address | [address] | | | [place] [address] | + + + | Home Phone [...] [place], [place] | | | | | [address] | | + + + + + Care Team Providers + +------+ + | Care Manager Of Compliance Name | Role | Phone | + +------+ + PCP | Unavailable | + +------+ + Encounter Details +--------+ + + + + | Date | Type | Department | Care Team | Description | +--------+ + + + + | 01/16/ | Hospital | [facility] | | | | 2002 | Encounter | MED CTR XRAY [address] | | | | | | [address] | | | | | | [place] [address] | | | | | | [phone] | | | +--------+ + + + [...] | | | | | [place] | | | | | | [address] | | | | | | | | +--------+---------+ + + + documented as of this encounter Visit Diagnoses Not on filedocumented in this encounter"
--- OUTSIDE RECORDS SUMMARY | ~2019-09-25 | XMS | Encounter Summary ---
Demographics + + + | Address | [address] | | | [place] [address] | + + + | Home Phone [...] [place] | | | | | [address] | | + + + + + Care Team Providers + +------+ + | Care Head Of Research & Insights Name | Role | Phone | + [...] + + | 01/02/ | Telephone | [facility] | Frandy Teresa, | Other (6m x-ray ) | | 2014 | | NEUROSURGERY [address] | DO [address] | | | | | [address] | [address] [place], [place] | | | | | [place], [place] | [phone] | | | | | [address] | | | | | | [phone] | | | +--------+ + + + [...] [place] | | | | | | [address] | | | | | | | | +--------+---------+ + + + documented as of this encounter Visit Diagnoses Not on filedocumented in this encounter"
--- OUTSIDE RECORDS SUMMARY | ~2019-09-25 | XMS | Encounter Summary ---
Demographics + + + | Address | [address] | | | [place] [address] | + + + | Home Phone [...] [place] | | | | | [address] | | + + + + + Care Team Providers + +------+ + | Care Wood Fence Erector Name | Role | Phone | [...] + | 11/25/ | Telephone | [facility] | Frandy Teresa, | Medication Refill | | 2015 | | NEUROSURGERY [address] | DO [address] | Assistance | | | | [address] | [address] [place], [place] | | | | | [place], [place] | [address] | | | | | [address] | | | | | | [phone] | | | +--------+ + + + [...] | | | | | [place] | | | | | | [address] | | | | | | | | +--------+---------+ + + + documented as of this encounter Visit Diagnoses Not on filedocumented in this encounter"
--- OUTSIDE RECORDS SUMMARY | ~2019-09-25 | XMS | Encounter Summary ---
Demographics + + + | Address | [address] | | | [place] [address] | + + + | Home Phone [...] [place] | | | | | [address] | | + + + + + Care Team Providers + +------+ + | Care Supervisor Salvage Name | Role | Phone | + [...] | | | | | | | [address] | | | | | | | Phone: | | | | | | | [phone] | | | | | | | Fax: | | | | | | | [phone] | | +--------+--------+ + + + + Encounter Details +--------+---------+ + + + | Date | Type | Department | Care Team | Description | +--------+---------+ + + + | 02/27/ | Office | [facility] | Baudilio Newman | Neuropathy (Primary | | 2015 | Visit | NEUROLOGY LAURIE | MD Pollo Need updated | Dx); Sleep apnea; | | | | [address] [facility], | address | Stroke (HCC); | | | | [address] [place] | | Thyroid disease | | | | [place] [address] | | | | | | [phone] | | | +--------+---------+ + + + [...] supply of blood, brain tissue quickly dies. [phone] [employer]. [address] [place] [address], [place] [address]. All righ ts reserved. This information is not intended as a substitute for professional medical care. Always follow your healthcare professional's instructions. documented in this encounter Progress Notes Baudilio Newman MD - 02/27/2015 10:31 AM PDTFormatting of this note might be differen t from the original. Baudilio Newman MD [address] [facility] [place] [address] Neurology Outpatient New Patient Note Referring Provider: [...] history. Notes from her recent hospitalization at [place] were reviewed in detail. Ms. Arndt started feeling off in the evening of 02/01. She felt dizzy and laid down to slee p. Upon waking, she felt her right side was numb. She tried to get up to go to the bathroom and realized she was weak as well on the right. She was taken to [facility] where she was diagnosed with a [...] systol ically. She was reevaluated in the [facility] ED for one such event and [...] hospitalization . This specimen was characterized at [facility], but the report is [...] Laterality: N/A; Surgeon: Frandy castellanos DO; Location: [facility] MAIN OR Current Medications: Outpatient Medications [...] tablet Take 15 mg by mouth nightly. [place]-3 Fatty Acids (FISH OIL CONCENTRATE) 1000 MG [...] BMI 46.04 kg /m2 Neck Circumference: 14" Blanchard Sleepiness Scale: 2 General: well developed and [...] Romberg test negative Radiographic Review: CTA from [place] reviewed on [facility]. No significant stenoses seen [...] No results found for this basename: hba1c, orr6hkj, ldl, ldldirect, ldlext, dldlex Lab Results Component [...] | | | | | [place], [place] | | | | | | [phone] | | | | | | | [...]
--- OUTSIDE RECORDS SUMMARY | ~2019-09-25 | XMS | Encounter Summary ---
Demographics + + + | Address | [address] | | | [place] [address] | + + + | Home Phone [...] [place] | | | | | [address] | | + + + + + Care Team Providers + +------+ + | Care Float Phlebotomist Name | Role | Phone | + [...] + | 09/10/ | Documentati | [facility] | Katharine Moncada, | Other (urgent | | 2019 | on | CARDIOLOGY [place] | Technologist | report) | | | | [address] | | | | | | [place] | | | | | | [address] | | | | | | [phone] | | | +--------+ + + + [...] [place] | | | | | | [address] | | | | | | | | +--------+---------+ + + + documented as of this encounter Visit Diagnoses Not on filedocumented in this encounter"
--- OUTSIDE RECORDS SUMMARY | ~2019-09-25 | XMS | Encounter Summary ---
Demographics + + + | Address | [address] | | | [place] [address] | + + + | Home Phone [...] [place] | | | | | [address] | | + + + + + Care Team Providers + +------+ + | Care Slitter Creaser Slotter Operator Name | Role | Phone | + +------+ + PCP | Unavailable | + +------+ + Encounter Details +--------+ + + + + | Date | Type | Department | Care Team | Description | +--------+ + + + + | 04/27/ | Hospital | [facility] | Sage Garza MD | | | 2001 | Encounter | HOSPITAL EMERGENCY | | | | | | CENTER [address] | | [address] [place], [place] | | | | | | [address] | | | | | | [phone] | | | +--------+ + + + [...] [place] | | | | | | [address] | | | | | | | | +--------+---------+ + + + documented as of this encounter Visit Diagnoses Not on filedocumented in this encounter"
--- OUTSIDE RECORDS SUMMARY | ~2019-09-25 | XMS | Encounter Summary ---
Demographics + + + | Address | [address] | | | [place] [address] | + + + | Home Phone [...] [place] | | | | | [address] | | + + + + + [...] + | 08/26/ | Refill | [facility] | Frandy Teresa, | Medication Refill | | 2013 | | NEUROSURGERY [address] | DO [address] | | | | | [address] | [address] [place], [place] | | | | | [place], [place] | [address] | | | | | [address] | | | | | | [phone] | | | +--------+--------+ + + + [...] | | | | | [place] | | | | | | [address] | | | | | | | | +--------+---------+ + + + documented as of this encounter Visit Diagnoses Not on filedocumented in this encounter"
--- OUTSIDE RECORDS SUMMARY | ~2019-09-25 | XMS | Encounter Summary ---
Demographics + + + | Address | [address] | | | [place] [address] | + + + | Home Phone [...] Organization | [facility] | | | and [place] | + + + | Address | Unknown | + + + | Phone | Unavailable | + + + Support + + + + + | Name | Relationship | Address | Phone | + + + + + | Araceli Sibley | ECON | [place], [place] | | | | | [address] | | + + + + + Care Team Providers + +------+ + | Care Coal Briquette Machine Operator Name | Role | Phone | + +------+ + PCP | Unavailable | + +------+ + Encounter Details +--------+ + + + + | Date | Type | Department | Care Team | Description | +--------+ + + + + | 02/22/ | Hospital | [facility] | | | | 1996 - | Encounter | MED CTR GENERIC PSY | | | | | | CONV DEPT [address] | | | | 02/26/ | | [place], | | | | 1996 | | [place] [address] | | | | | | [phone] | | | +--------+ + + + [...] [place] | | | | | | [address] | | | | | | | | +--------+---------+ + + + documented as of this encounter Visit Diagnoses Not on filedocumented in this encounter"
--- OUTSIDE RECORDS SUMMARY | ~2019-09-25 | XMS | Encounter Summary ---
Demographics + + + | Address | [address] | | | [place] [address] | + + + | Home Phone [...] [place] | | | | | [address] | | + + + + + Care Team Providers + +------+ + | Care Wool Washing Machine Operator Name | Role | [...] [place] | | | | | | [address] | | | | | | [phone] | | | +--------+ + + + [...] [place] | | | | | | [address] | | | | | | | | +--------+---------+ + + + documented as of this encounter Visit Diagnoses Not on filedocumented in this encounter"
--- OUTSIDE RECORDS SUMMARY | ~2019-09-25 | XMS | Encounter Summary ---
Demographics + + + | Address | [address] | | | [place] [address] | + + + | Home Phone [...] [place], [place] | | | | | [address] | | + + + + + Care Team Providers + +------+ + | Care Vice Chairman Name | Role | Phone | + +------+ + PCP | Unavailable | + +------+ + Encounter Details +--------+ + + + + | Date | Type | Department | Care Team | Description | +--------+ + + + + | 05/23/ | Hospital | [facility] | Dale, Heath E A, | | | 2012 | Encounter | MED CTR XRAY [address] | MD [address] | | | | | [place] | [place] | | | | | [place] [address] | [address] | | | | | [phone] | | | +--------+ + + + [...] + + + +---------+ + + | [place]-3 Fatty | Take 1,000 mg by [...] [place] | | | | | | [address] | | | | | | | [...] At | + + + | [facility] | [facility] | | [address] | [facility] | | LUMBAR SPINE MR WITHOUT CONTRAST, [...] Transcribed Date/Time: | | | 05/23/2012 16:55 Cda Teacher: <Electronically Signed | | | by Adriano Anne MD> 05/23/12 8665 | | + + + + + | Procedure Note | + + | Manohar Martinez Conversion - 11/30/2013 5:47 PM [facility] | | Diagnostic Imaging Department [address] [facility] [place] | | LUMBAR SPINE MR WITHOUT CONTRAST, [...] 16:37 | |Transcribed Date/Time: 05/23/2012 16:55 | |Cda Teacher: | |<Electronically Signed by Adriano Anne MD> [...]
--- OUTSIDE RECORDS SUMMARY | ~2019-09-25 | XMS | Encounter Summary ---
Demographics + + + | Address | [address] | | | [place] [address] | + + + | Home Phone [...] [place] | | | | | [address] | | + + + + + Care Team Providers + +------+ + | Care Parts Counter Representative Name | Role | Phone | [...] 07/06/ | Emergency | [facility] | Yunior [place], | Chest pain, | | 2014 | | MED CTR EMERGENCY | MD [address] | unspecified chest | | | | CENTER [address] | [place], [place] | pain type (Primary | | | | [place], [place] | [address] | Dx) | | | | [address] | | | | | | [phone] | | | +--------+ + + + [...] sent through Care Everywhere.CHEST PAIN, NON CARDIAC (INDONESIAN)documented in this encounter Medications at Time of [...] 0 | | | | (VITAMIN D-3) [address] | mouth Once a week. | | [...] | | | | | | ([facility]) | | | | [...] + + + +---------+ + + | [place]-3 Fatty | Take 1,000 mg by | [...] [place] | | | | | | [address] | | | | | | | [...] [address] | [place] | [phone] | | [facility] | | [address] | | | - LABORATORY | | [...] [address] | [place] | [phone] | | [facility] | | [address] | | | - LABORATORY | | [...] | | | | | | [employer] | | | | | [...] + | [facility] | [address] | [place] | [phone] | | [facility] | | [address] | | | - LABORATORY | | [...] mL/min/1.73m2 | [facility] | | | CYPRIOT | RATE,ESTIMATED | | MEDICAL | | | | mL/min/1.01d7Mumh than | | CENTER - | | [...] [address] | [place] | [phone] | | [facility] | | [address] | | | - LABORATORY | | [...] [address] | [place] | [phone] | | [facility] | | [address] | | | - LABORATORY | | [...] | | | | MD [place] JON ([id number]) | | | | | | on [...]
--- OUTSIDE RECORDS SUMMARY | ~2019-09-25 | XMS | Encounter Summary ---
Demographics + + + | Address | [address] | | | [place] [address] | + + + | Home Phone [...] [place], [place] | | | | | [address] | | + + + + + Care Team Providers + +------+ + | Care Energy Director Name | Role | Phone | + +------+ + PCP | Unavailable | + +------+ + Encounter Details +--------+ + + + + | Date | Type | Department | Care Team | Description | +--------+ + + + + | 06/23/ | Hospital | [facility] | | | | 2000 | Encounter | MED CTR GENERIC OP | | | | | | CONV DEPT [address] | | | | | | [place], | | | | | | [place] [address] | | | | | | [phone] | | | +--------+ + + + [...] | | | | | [place] | | | | | | [address] | | | | | | | | +--------+---------+ + + + documented as of this encounter Visit Diagnoses Not on filedocumented in this encounter"
--- OUTSIDE RECORDS SUMMARY | ~2019-09-25 | XMS | Encounter Summary ---
Demographics + + + | Address | [address] | | | [place] [address] | + + + | Home Phone [...] [place] | | | | | [address] | | + + + + + Care Team Providers + +------+ + | Care Laminator Printed Circuit Boards Name | Role | [...] | 02/27/ | Telephone | [facility] | Katharine Cardona PA-C | Appointment (New | | 2014 | | MEDICINE [address] | [address] | Patient) | | | | [address] [place] | [place] [address] | | | | | [place] [address] | [phone] | | | | | [phone] | | | +--------+ + + + [...] [place] | | | | | | [address] | | | | | | | | +--------+---------+ + + + documented as of this encounter Visit Diagnoses Not on filedocumented in this encounter"
--- OUTSIDE RECORDS SUMMARY | ~2019-09-25 | XMS | Encounter Summary ---
Demographics + + + | Address | [address] | | | [place] [address] | + + + | Home Phone [...] [place] | | | | | [address] | | + + + + + Care Team Providers + +------+ + | Care Pediatric Dental Hygienist Name | Role | Phone | [...] [address] | [address] [place], [place] | | | | | [place], [place] | [id number] | | | | | [address] | | | | | | [phone] | | | +--------+ + + + [...] | | | | | [place] | | | | | | [address] | | | | | | | | +--------+---------+ + + + documented as of this encounter Visit Diagnoses Not on filedocumented in this encounter"
--- OUTSIDE RECORDS SUMMARY | ~2019-09-25 | XMS | Encounter Summary ---
Demographics + + + | Address | [address] | | | [place] [address] | + + + | Home Phone [...] [place], [place] | | | | | [address] | | + + + + + Care Team Providers + +------+ + | Care Steel Tier Name | Role | Phone | [...] | | | 1997 | | [place] [address] | | | | | | [phone] | | | +--------+ + + + [...] [place] | | | | | | [address] | | | | | | | | +--------+---------+ + + + documented as of this encounter Visit Diagnoses Not on filedocumented in this encounter"
--- OUTSIDE RECORDS SUMMARY | ~2019-09-25 | XMS | Encounter Summary ---
Demographics + + + | Address | [address] | | | [place] [address] | + + + | Home Phone [...] [place] | | | | | [address] | | + + + + + Care Team Providers + +------+ + | Care Aadc Plans Staff Officer Name | Role | Phone | [...] [place] | | | | | | [address] | | | | | | [phone] | | | +--------+ + + + [...] [place] | | | | | | [address] | | | | | | | | +--------+---------+ + + + documented as of this encounter Visit Diagnoses Not on filedocumented in this encounter"
--- OUTSIDE RECORDS SUMMARY | ~2019-09-25 | XMS | Encounter Summary ---
Demographics + + + | Address | [address] | | | [place] [address] | + + + | Home Phone [...] [place] | | | | | [address] | | + + + + + Care Team Providers + +------+ + | Care Hay Baler Name | Role | Phone | + [...] + + | 08/15/ | Documentati | [facility] | Katharine Moncada, | Other (urgent | | 2019 | on | CARDIOLOGY [place] | Technologist | report) | | | | [address] | | | | | | [place] | | | | | | [address] | | | | | | [phone] | | | +--------+ + + + [...] [place] | | | | | | [address] | | | | | | | | +--------+---------+ + + + documented as of this encounter Visit Diagnoses Not on filedocumented in this encounter"
--- OUTSIDE RECORDS SUMMARY | ~2019-09-25 | XMS | Encounter Summary ---
Demographics + + + | Address | [address] | | | [place] [address] | + + + | Home Phone [...] [place] | | | | | [address] | | + + + + + Care Team Providers + +------+ + | Care Dairy Associate Name | Role | Phone | + +------+ + | Natalee Andersen NP | PCP | | + +------+ + Encounter Details +--------+ + + + + | Date | Type | Department | Care Team | Description | +--------+ + + + + | 05/02/ | Hospital | [facility] | Frandy Teresa, | Back pain | | 2014 | Encounter | MED CTR XRAY [address] | DO [address] | | | | | [place] | [address] [place] | | | | | [place] [address] | [address] | | | | | [phone] | | | +--------+ + + + [...] + + + +---------+ + + | [place]-3 Fatty | Take 1,000 mg by | [...] | | | | [place] | | | | | | [address] | | | | | | | [...] + | MISCELLANEOUS LAB | | | [phone] | + +---------+ + + | MISCELANIOUS LAB | | | [phone] | + +---------+ + + documented in this encounter Visit Diagnoses + + | Diagnosis | + + | Back pain Backache, unspecified | + + documented in this encounter"
--- OUTSIDE RECORDS SUMMARY | ~2019-09-25 | XMS | Encounter Summary ---
Demographics + + + | Address | [address] | | | [place] [address] | + + + | Home Phone [...] [place] | | | | | [address] | | + + + + + Care Team Providers + +------+ + | Care Reel Winder Name | Role | Phone | + +------+ + | Adriano Patrick MD | PCP | | + +------+ + Encounter Details +--------+ + + + + | Date | Type | Department | Care Team | Description | +--------+ + + + + | 05/16/ | Orders Only | [facility] | Provider, | | | 2018 | | SYSTEM GENERIC OP | MD [address] | | | | | CONVERSION [address] | [address] | | | | | [address] [place], [place] | [place] [address] | | | | | [address] | | | | | | [phone] | | | +--------+ + + + [...] | | | | | [place], [place] | | | | | | [address] | | | | | | | | +--------+---------+ + + + documented as of this encounter Visit Diagnoses Not on filedocumented in this encounter"
--- OUTSIDE RECORDS SUMMARY | ~2019-09-25 | XMS | Encounter Summary ---
Demographics + + + | Address | [address] | | | [place] [address] | + + + | Home Phone [...] [place], [place] | | | | | [address] | | + + + + + Care Team Providers + +------+ + | Care Tow Car Driver Name | Role | Phone | + +------+ + PCP | Unavailable | + +------+ + Encounter Details +--------+ + + + + | Date | Type | Department | Care Team | Description | +--------+ + + + + | 12/22/ | Hospital | [facility] | | | | 1993 - | Encounter | MED CTR GENERIC PSY | | | | | | CONV DEPT [address] | | | | 12/25/ | | [place], | | | | 1993 | | [place] [address] | | | | | | [phone] | | | +--------+ + + + [...] [place] | | | | | | [address] | | | | | | | | +--------+---------+ + + + documented as of this encounter Visit Diagnoses Not on filedocumented in this encounter"
--- OUTSIDE RECORDS SUMMARY | ~2019-09-25 | XMS | Encounter Summary ---
Demographics + + + | Address | [address] | | | [place] [address] | + + + | Home Phone [...] [place], [place] | | | | | [address] | | + + + + + Care Team Providers + +------+ + | Care Narcotics Investigator Name | Role | Phone | + +------+ + PCP | Unavailable | + +------+ + Encounter Details +--------+ + + + + | Date | Type | Department | Care Team | Description | +--------+ + + + + | 03/11/ | [facility] | [facility] | Deon Gonzales | | | 2005 | Encounter | MED CTR SLEEP | MD Laure[address] | | | | | [address] [address] | [address] [place] | | | | | [place], [place] | [place] [address] | | | | | [address] | [phone] | | | | | [phone] | | | +--------+ + + + [...] [place] | | | | | | [address] | | | | | | | | +--------+---------+ + + + documented as of this encounter Visit Diagnoses Not on filedocumented in this encounter"
--- OUTSIDE RECORDS SUMMARY | ~2019-09-25 | XMS | Encounter Summary ---
Demographics + + + | Address | [address] | | | [place] [address] | + + + | Home Phone [...] [place], [place] | | | | | [address] | | + + + + + Care Team Providers + +------+ + | Care Insurance Application Investigator Name | Role | Phone | + +------+ + PCP | Unavailable | + +------+ + Encounter Details +--------+ + + + + | Date | Type | Department | Care Team | Description | +--------+ + + + + | 01/06/ | Hospital | [facility] | | | | 1992 | Encounter | MED CTR LABORATORY | | | | | | [address] | | | | | | [place] | | | | | | [address] | | | | | | [phone] | | | +--------+ + + + [...] | | | | | [place] | | | | | | [address] | | | | | | | | +--------+---------+ + + + documented as of this encounter Visit Diagnoses Not on filedocumented in this encounter"
--- OUTSIDE RECORDS SUMMARY | ~2019-09-25 | XMS | Encounter Summary ---
Demographics + + + | Address | [address] | | | [place] [address] | + + + | Home Phone [...] [place] | | | | | [address] | | + + + + + Care Team Providers + +------+ + | Care Secret Service Agent Name | Role | Phone | [...] + + | 08/16/ | Telephone | [facility] | Ashley Chávez | Other (Called to | | 2018 | | CARDIOLOGY [place] | Pollo, Hydraulic Press In Operator | tell patient what | | | | [address] | | Nicholas said. ) | | | | [address] | | | | | | [place] | | | | | | [address] | | | | | | [phone] | | | +--------+ + + + [...] [place] | | | | | | [address] | | | | | | | | +--------+---------+ + + + documented as of this encounter Visit Diagnoses Not on filedocumented in this encounter"
--- OUTSIDE RECORDS SUMMARY | ~2019-09-25 | XMS | Encounter Summary ---
Demographics + + + | Address | [address] | | | [place] [address] | + + + | Home Phone [...] [place] | | | | | [address] | | + + + + + Care Team Providers + +------+ + | Care Test Engineering Technician Name | Role | Phone [...] [place] | | | | | | [address] | | | | | | [phone] | | | +--------+ + + + [...] [place] | | | | | | [address] | | | | | | | | +--------+---------+ + + + documented as of this encounter Visit Diagnoses Not on filedocumented in this encounter"
--- OUTSIDE RECORDS SUMMARY | ~2019-09-25 | XMS | Encounter Summary ---
Demographics + + + | Address | [address] | | | [place] [address] | + + + | Home Phone [...] [place], [place] | | | | | [address] | | + + + + + Care Team Providers + +------+ + | Care Road Roller Engineer Name | Role | Phone | + +------+ + PCP | Unavailable | + +------+ + Encounter Details +--------+ + + + + | Date | Type | Department | Care Team | Description | +--------+ + + + + | 12/09/ | Hospital | [facility] | Serafin Bautista | | | 2012 | Encounter | MED CTR XRAY [address] | T, MD [address] | | | | | [place] | ST [place], [place] | | | | | [place] [address] | [address] | | | | | [phone] | | | +--------+ + + + [...] [place] | | | | | | [address] | | | | | | | [...] Performed At | + + + | [facility] Diagnostic Imaging Department | [facility] | | [address] | [facility] | | PROCEDURE NOTE EPIDURAL | DIAG [...] Manohar Martinez Conversion - 11/30/2013 4:45 PM [facility] | | Diagnostic [...] [place] | | | | | [facility] | | | | + +---------+ + + documented in this encounter Visit Diagnoses Not on filedocumented in this encounter"
--- OUTSIDE RECORDS SUMMARY | ~2019-09-25 | XMS | Encounter Summary ---
Demographics + + + | Address | [address] [facility] [address] [address] | | | [place] [address] | + + + | Home Phone [...] [place] | | | | | [address] | | + + + + + [...] Rd | | | | | | [place], [place] | | | | | | [address] | | | +--------+ + + + [...]
--- OUTSIDE RECORDS SUMMARY | ~2019-09-25 | XMS | Encounter Summary ---
Demographics + + + | Address | [address] | | | [place] [address] | + + + | Home Phone [...] [place], [place] | | | | | [address] | | + + + + + Care Team Providers + +------+ + | Care Bisque Finisher Name | Role | Phone | [...] | | | | 1996 | | [place] [address] | | | | | | [phone] | | | +--------+ + + + [...] [place] | | | | | | [address] | | | | | | | | +--------+---------+ + + + documented as of this encounter Visit Diagnoses Not on filedocumented in this encounter"
--- OUTSIDE RECORDS SUMMARY | ~2019-09-25 | XMS | Encounter Summary ---
Demographics + + + | Address | [address] | | | [place] [address] | + + + | Home Phone [...] [place] | | | | | [address] | | + + + + + Care Team Providers + +------+ + | Care Space Studies Faculty Member Name | Role | Phone [...] | | | | | | [address] [place], [place] | | | | | | [address] | | | | | | [phone] | | | +--------+ + + + [...] [place] | | | | | | [address] | | | | | | | | +--------+---------+ + + + documented as of this encounter Visit Diagnoses Not on filedocumented in this encounter"
--- OUTSIDE RECORDS SUMMARY | ~2019-09-25 | XMS | Encounter Summary ---
Demographics + + + | Address | [address] | | | [place] [address] | + + + | Home Phone [...] [place] | | | | | [address] | | + + + + + Care Team Providers + +------+ + | Care Rail Detector Car Operator Name | Role | Phone | + +------+ + | Natalee Andersen NP | PCP | | + +------+ + Encounter Details +--------+ + + + + | Date | Type | Department | Care Team | Description | +--------+ + + + + | 06/25/ | Hospital | [facility] | Frandy Teresa, | Acquired | | 2014 | Encounter | MED CTR XRAY [address] | DO [address] | spondylolisthesis | | | | [place] | [address] [place], [place] | | | | | [place] [address] | [address] | | | | | [phone] | | | +--------+ + + + [...] + + + +---------+ + + | [place]-3 Fatty | Take 1,000 mg by | [...] [place] | | | | | | [address] | | | | | | | | +--------+---------+ + + + documented as of this encounter Visit Diagnoses + + | Diagnosis | + + | Acquired spondylolisthesis | + + documented in this encounter"
--- OUTSIDE RECORDS SUMMARY | ~2019-09-25 | XMS | Encounter Summary ---
Demographics + + + | Address | [address] | | | [place] [address] | + + + | Home Phone [...] [place] | | | | | [address] | | + + + + + Care Team Providers + +------+ + | Care News Director Name | Role | Phone | [...] | | | spondylolist | | [address] | | | | | hesis | | [place], | | | | | Spinal | | [place] [address] | | | | | stenosis, | | Phone: | | | | | lumbar | | [phone] | | | | | region, | | Fax: | | | | | without | | [phone] | | | | | neurogenic | [...] + | 07/02/ | Hospital | [facility] | Frandy Teresa, | Degenerative disc | | 2013 - | Encounter | MED CTR SURGICAL | DO [address] | disease, lumbar | | | | [address] | [address] [place] | (Primary Dx); | | 07/05/ | | [place] [address] | [id number] | Diabetes mellitus | | 2013 | | [phone] | | ([facility]); Disturbance | | | | [...] discharge to SNF. DISPOSITION: SNF ([facility]) DISCHARGE MEDICATIONS Medications prior to admission that [...] Take 15 mg by mouth nightl y. [place]-3 Fatty Acids (FISH OIL CONCENTRATE) 1000 MG [...] + + + +---------+ + + | [place]-3 Fatty | Take 1,000 mg by | [...] -DC plan: SNF versus home with [facility] any time. Maria T Storm RN - 07/04/2014 6:56 PM PDTFoley cath dc'd and MARI drain dc'd no problems. Chris Lynn PA-C - 07/04/2014 7:43 AM PDT [facility] PROGRESS NOTE Pt. Name/Age/: Cindy Arndt 58 y.o. 1955 Med. Record Number: [id number] Date of admission: 07/02/2014 Subjective: The patient [...] home medications. D/C plan: Home tomorrow with [facility]. D/c mari drain and riley cath today. 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 Patient Active Problem List Diagnosis [...] signed by: Chris Nicole, 07/04/2014 7:45 [facility] Chris Lynn PA-C - 07/03/2014 7:13 AM PDT . [facility] PROGRESS NOTE Pt. Name/Age/: Cindy Arndt 58 y.o. 1955 Med. Record Number: [id number] Date of admission: 07/02/2014 Subjective: The patient [...] Electronically signed by: Chris Nicole, [facility]2014 [facility] Ton Menjivar, KRIS - 07/03/2014 6:50 [...] [place] | | | | | | [address] | | | | | | | [...] + | [facility] | [address] | [place], [place] | [phone] | | [facility] | | [address] | | | - LABORATORY | | | | + + + + + | [facility] | [address] | [place], [place] | | | [facility] | | [address] | | | - LABORATORY | | [...] + | [facility] | [address] | [place] | [phone] | | [facility] | | [address] | | | - LABORATORY | | | | + + + + + | [facility] | [address] | [place] | | | [facility] | | [address] | | | - LABORATORY | | [...] + | [facility] | [address] | [place] | [phone] | | [facility] | | [address] | | | - LABORATORY | | | | + + + + + | [facility] | [address] | [place] | | | [facility] | | [address] | | | - LABORATORY | | [...] + | [facility] | [address] | [place], [place] | [phone] | | [facility] | | [address] | | | - LABORATORY | | | | + + + + + | [facility] | [address] | [place], [place] | | | [facility] | | [address] | | | - LABORATORY | | [...] + | [facility] | [address] | [place] | [phone] | | [facility] | | [address] | | | - LABORATORY | | | | + + + + + | [facility] | [address] | [place] | | | [facility] | | [address] | | | - LABORATORY | | [...] + | [facility] | [address] | [place] | [phone] | | [facility] | | [address] | | | - LABORATORY | | | | + + + + + | [facility] | [address] | [place] | | | [facility] | | [address] | | | - LABORATORY | | [...] [address] | [place] | [phone] | | [facility] | | [address] | | | - LABORATORY | | | | + + + + + | [facility] | [address] | [place] | | | [facility] | | [address] | | | - LABORATORY | | [...] + | [facility] | [address] | [place], [place] | [phone] | | [facility] | | [address] | | | - LABORATORY | | | | + + + + + | [facility] | [address] | [place], [place] | | | [facility] | | [address] | | | - LABORATORY | | [...] [address] | [place] | [phone] | | [facility] | | [address] | | | - LABORATORY | | | | + + + + + | [facility] | [address] | [place], [place] | | | [facility] | | [address] | | | - LABORATORY | | [...] | of hardware for posterior fusion from N1hvrfvoc S1 with interbody hardware at L5-S1. The [...] + + | Performing | Address | City/State/[facility] | Phone Number | | Organization | | | | + +---------+ + + | MISCELLANEOUS LAB | | | [phone] | + +---------+ + + | MISCELANIOUS LAB | | | [phone] | + +---------+ + + POC Glucose [...] + | [facility] | [address] | [place], [place] | [phone] | | [facility] | | [address] | | | - LABORATORY | | | | + + + + + | [facility] | [address] | [place], [place] | | | [facility] | | [address] | | | - LABORATORY | | [...] + | [facility] | [address] | [place] | [phone] | | [facility] | | [address] | | | - LABORATORY | | | | + + + + + | [facility] | [address] | [place] | | | [facility] | | [address] | | | - LABORATORY | | [...] + | [facility] | [address] | [place] | [phone] | | [facility] | | [address] | | | - LABORATORY | | | | + + + + + | [facility] | [address] | [place] | | | [facility] | | [address] | | | - LABORATORY | | [...] + | [facility] | [address] | [place], [place] | [phone] | | [facility] | | [address] | | | - LABORATORY | | | | + + + + + | [facility] | [address] | [place] | | | [facility] | | [address] | | | - LABORATORY | | [...] + | [facility] | [address] | [place] | [phone] | | [facility] | | [address] | | | - LABORATORY | | | | + + + + + | [facility] | [address] | [place] | | | [facility] | | [address] | | | - LABORATORY | | [...] [facility] | | [address] | | | - BLOOD BANK | [...] + +---------+ +---+---+---+ | morphine 5 mg/mL DRAFTING DETAILER syringe | New Bag | 07/02/20 | [...] | | | | Dose(mg): 0, Starting DRAFTING DETAILER | | | | | | | Dose(mg): 1, Incremental Increase | | | | | | | DRAFTING DETAILER Dose(mg): 0.5, Maximum DRAFTING DETAILER | | | | | | | [...]
--- OUTSIDE RECORDS SUMMARY | ~2019-09-25 | XMS | Encounter Summary ---
Demographics + + + | Address | [address] | | | [place] [address] | + + + | Home Phone [...] [place] | | | | | [address] | | + + + + + Care Team Providers + +------+ + | Care Film Developing Machine Operator Name | Role | Phone | + +------+ + | Natalee Andersen NP | PCP | | + +------+ + Encounter Details +--------+ + + + + | Date | Type | Department | Care Team | Description | +--------+ + + + + | 07/06/ | Hospital | [facility] | Latricia Feliciano | | | 2014 | Encounter | MED CTR ACUTE | D, PT [address] | | | | | PHYSICAL THERAPY | [place] | | | | | [address] | [address] | | | | | [place] [address] | | | | | | [phone] | | | +--------+ + + + [...] + + + +---------+ + + | [place]-3 Fatty | Take 1,000 mg by | [...] | | | | | [place] | | | | | | [address] | | | | | | | | +--------+---------+ + + + documented as of this encounter Visit Diagnoses Not on filedocumented in this encounter"
--- OUTSIDE RECORDS SUMMARY | ~2019-09-25 | XMS | Encounter Summary ---
Demographics + + + | Address | [address] | | | [place] [address] | + + + | Home Phone [...] [place] | | | | | [address] | | + + + + + Care Team Providers + +------+ + | Care Iron Plastic Bullet Maker Name | Role | Phone | [...] + + | 02/01/ | Telephone | [facility] | Frandy Teresa, | Imaging Only | | 2019 | | NEUROSURGERY [address] | DO [address] | | | | | [address] | [address] [place], [place] | | | | | [place], [place] | [address] | | | | | [address] | | | | | | [phone] | | | +--------+ + + + [...] [place] | | | | | | [address] | | | | | | | | +--------+---------+ + + + documented as of this encounter Visit Diagnoses Not on filedocumented in this encounter"
--- OUTSIDE RECORDS SUMMARY | ~2019-09-25 | XMS | Encounter Summary ---
Demographics + + + | Address | [address] | | | [place] [address] | + + + | Home Phone [...] [place], [place] | | | | | [address] | | + + + + + Care Team Providers + +------+ + | Care Data Analytics Specialist Name | Role | Phone | + +------+ + PCP | Unavailable | + +------+ + Encounter Details +--------+ + + + + | Date | Type | Department | Care Team | Description | +--------+ + + + + | 06/30/ | Hospital | [facility] | | | | 1999 - | Encounter | MED CTR GENERIC PSY | | | | | | CONV DEPT [address] | | | | 07/05/ | | [place], | | | | 1999 | | [place] [address] | | | | | | [phone] | | | +--------+ + + + [...] [place] | | | | | | [address] | | | | | | | | +--------+---------+ + + + documented as of this encounter Visit Diagnoses Not on filedocumented in this encounter"
--- OUTSIDE RECORDS SUMMARY | ~2019-09-25 | XMS | Encounter Summary ---
Demographics + + + | Address | [address] | | | [place] [address] | + + + | Home Phone [...] [place] | | | | | [address] | | + + + + + Care Team Providers + +------+ + | Care Meat And Seafood Manager Name | Role | Phone | [...] + + | 07/08/ | Telephone | [facility] | Frandy Teresa, | Other (post op call | | 2013 | | NEUROSURGERY [address] | DO [address] | ) | | | | [address] [address] | [address] [place], [place] | | | | | [place], [place] | [address] | | | | | [address] | | | | | | [phone] | | | +--------+ + + + [...] | | | | | | [facility] [place] | | | | | | [address] | | | | | | | | +--------+---------+ + + + documented as of this encounter Visit Diagnoses Not on filedocumented in this encounter"
--- OUTSIDE RECORDS SUMMARY | ~2019-09-25 | XMS | Encounter Summary ---
Demographics + + + | Address | [address] | | | [place] [address] | + + + | Home Phone [...] [place], [place] | | | | | [address] | | + + + + + Care Team Providers + +------+ + | Care Police Judge Name | Role | Phone | + +------+ + PCP | Unavailable | + +------+ + Encounter Details +--------+ + + + + | Date | Type | Department | Care Team | Description | +--------+ + + + + | 02/02/ | Hospital | [facility] | | | | 1997 - | Encounter | MED CTR GENERIC PSY | | | | | | CONV DEPT [address] | | | | 02/05/ | | [place], | | | | 1997 | | [place] [address] | | | | | | [phone] | | | +--------+ + + + [...] [place] | | | | | | [address] | | | | | | | | +--------+---------+ + + + documented as of this encounter Visit Diagnoses Not on filedocumented in this encounter"
--- OUTSIDE RECORDS SUMMARY | ~2019-09-25 | XMS | Encounter Summary ---
Demographics + + + | Address | [address] | | | [place] [address] | + + + | Home Phone [...] [place] | | | | | [address] | | + + + + + Care Team Providers + +------+ + | Care An/Sqq [phone])15 Sonar System Journeyman Name | Role | Phone | + [...] + + | 08/20/ | Documentati | [facility] | Katharine Moncada, | Other (urgent | | 2019 | on | CARDIOLOGY [place] | Technologist | report) | | | | [address] | | | | | | [place] | | | | | | [address] | | | | | | [phone] | | | +--------+ + + + [...] [place] | | | | | | [address] | | | | | | | | +--------+---------+ + + + documented as of this encounter Visit Diagnoses Not on filedocumented in this encounter"
--- OUTSIDE RECORDS SUMMARY | ~2019-09-25 | XMS | Encounter Summary ---
Demographics + + + | Address | [address] | | | [place] [address] | + + + | Home Phone [...] Organization | [facility] | | | and [place] | + + + | Address | Unknown | + + + | Phone | Unavailable | + + + Support + + + + + | Name | Relationship | Address | Phone | + + + + + | Araceli Sibley | ECON | [place] | | | | | [address] | | + + + + + Care Team Providers + +------+ + | Care Ends Breakage Clerk Name | Role | Phone | [...] + | 08/21/ | Documentati | [facility] | Katharine Moncada, | Other (urgent | | 2019 | on | CARDIOLOGY [place] | Technologist | report) | | | | [address] | | | | | | [place] | | | | | | [address] | | | | | | [phone] | | | +--------+ + + + [...] [place] | | | | | | [address] | | | | | | | | +--------+---------+ + + + documented as of this encounter Visit Diagnoses Not on filedocumented in this encounter"
--- OUTSIDE RECORDS SUMMARY | ~2019-09-25 | XMS | Encounter Summary ---
Demographics + + + | Address | [address] | | | [place] [address] | + + + | Home Phone [...] [place] | | | | | [address] | | + + + + + Care Team Providers + +------+ + | Care Professional Soccer Player Name | Role | Phone | + [...] [place] | | | | | | [address] | | | | | | [phone] | | | +--------+ + + + [...] [place] | | | | | | [address] | | | | | | | | +--------+---------+ + + + documented as of this encounter Visit Diagnoses Not on filedocumented in this encounter"
--- OUTSIDE RECORDS SUMMARY | ~2019-09-25 | XMS | Encounter Summary ---
Demographics + + + | Address | [address] | | | [place] [address] | + + + | Home Phone [...] [place] | | | | | [address] | | + + + + + Care Team Providers + +------+ + | Care Health Care Legal Assistant Name | Role | Phone | + +------+ + | Basim Bolanos MD | PCP | | + +------+ + Encounter Details +--------+ + + + + | Date | Type | Department | Care Team | Description | +--------+ + + + + | 03/30/ | Hospital | [facility] | Tyrese Neely MD | | | 2012 | Encounter | MED CTR MP INTRA OP | [address], [place] | | | | | [address] | [address] [place], [place] | | | | | [place], [place] | [address] | | | | | [address] | | | | | | [phone] | | | +--------+ + + + [...] + + + +---------+ + + | [place]-3 Fatty | Take 1,000 mg by | [...] [place] | | | | | | [address] | | | | | | | [...] + | [facility] | [address] | [place] | [phone] | | [facility] | | [address] | | | - LABORATORY | | | | + + + + + | [facility] | [address] | [place] | | | [facility] | | [address] | | | - LABORATORY | | [...] + | [facility] | [address] | [place], [place] | [phone] | | [facility] | | [address] | | | - LABORATORY | | | | + + + + + | [facility] | [address] | [place], [place] | | | [facility] | | [address] | | | - LABORATORY | | | | + + + + + documented in this encounter Visit Diagnoses Not on filedocumented in this encounter"
--- OUTSIDE RECORDS SUMMARY | ~2019-09-25 | XMS | Encounter Summary ---
Demographics + + + | Address | [address] | | | [place] [address] | + + + | Home Phone [...] [place], [place] | | | | | [address] | | + + + + + Care Team Providers + +------+ + | Care Mine Engineering Supervisor Name | Role | Phone | [...] Location | | | | | | [phone] | | | +--------+ + + + [...] [place] | | | | | | [address] | | | | | | | | +--------+---------+ + + + documented as of this encounter Visit Diagnoses Not on filedocumented in this encounter"
--- OUTSIDE RECORDS SUMMARY | ~2019-09-25 | XMS | Encounter Summary ---
Demographics + + + | Address | [address] | | | [place] [address] | + + + | Home Phone [...] [place] | | | | | [address] | | + + + + + Care Team Providers + +------+ + | Care County Program Technician Name | Role | Phone [...] + + | 03/04/ | Telephone | [facility] | Baudilio Newman | Other (Plavix) | | 2014 | | NEUROLOGY [place]UR[place] | MD Pollo Need updated | | | | | [address], | address | | | | | [address] [place] | | | | | | [place] [address] | | | | | | [phone] | | | +--------+ + + + [...] [place] | | | | | | [address] | | | | | | | | +--------+---------+ + + + documented as of this encounter Visit Diagnoses Not on filedocumented in this encounter"
--- OUTSIDE RECORDS SUMMARY | ~2019-09-25 | XMS | Encounter Summary ---
Demographics + + + | Address | [address] | | | [place] [address] | + + + | Home Phone [...] [place] | | | | | [address] | | + + + + + Care Team Providers + +------+ + | Care Edge Glue Machine Tender Name | Role | Phone | + +------+ + | Natalee Andersen NP | PCP | | + +------+ + Encounter Details +--------+ + + + + | Date | Type | Department | Care Team | Description | +--------+ + + + + | 07/25/ | Hospital | [facility] | Frandy Teresa, | Status post lumbar | | 2014 | Encounter | MED CTR XRAY [address] | DO [address] | spinal fusion | | | | [place] | [address] [place], [place] | | | | | [place] [address] | [address] | | | | | [phone] | | | +--------+ + + + [...] + + + +---------+ + + | [place]-3 Fatty | Take 1,000 mg by | [...] [place] | | | | | | [address] | | | | | | | [...] + | MISCELLANEOUS LAB | | | [phone] | + +---------+ + + | MISCELANIOUS LAB | | | [phone] | + +---------+ + + documented in this encounter Visit Diagnoses + + | Diagnosis | + + | Status post lumbar spinal fusion Arthrodesis status | + + documented in this encounter"
--- OUTSIDE RECORDS SUMMARY | ~2019-09-25 | XMS | Encounter Summary ---
Demographics + + + | Address | [address] | | | [place] [address] | + + + | Home Phone [...] [place], [place] | | | | | [address] | | + + + + + Care Team Providers + +------+ + | Care Analytical Scientist Name | Role | Phone | + +------+ + PCP | Unavailable | + +------+ + Encounter Details +--------+ + + + + | Date | Type | Department | Care Team | Description | +--------+ + + + + | 06/19/ | Hospital | [facility] | | | | 1991 - | Encounter | MED CTR GENERIC PSY | | | | | | CONV DEPT [address] | | | | 06/24/ | | [place], | | | | 1991 | | [place] [address] | | | | | | [phone] | | | +--------+ + + + [...] [place] | | | | | | [address] | | | | | | | | +--------+---------+ + + + documented as of this encounter Visit Diagnoses Not on filedocumented in this encounter"
--- OUTSIDE RECORDS SUMMARY | ~2019-09-25 | XMS | Encounter Summary ---
Demographics + + + | Address | [address] | | | [place] [address] | + + + | Home Phone [...] [place] | | | | | [address] | | + + + + + Care Team Providers + +------+ + | Care Iridologist Name | Role | Phone | + [...] [place] | | | | | | [address] | | | | | | [phone] | | | +--------+ + + + [...] [place] | | | | | | [address] | | | | | | | | +--------+---------+ + + + documented as of this encounter Visit Diagnoses Not on filedocumented in this encounter"
--- OUTSIDE RECORDS SUMMARY | ~2019-09-25 | XMS | Encounter Summary ---
Demographics + + + | Address | [address] | | | [place] [address] | + + + | Home Phone [...] [place], [place] | | | | | [address] | | + + + + + Care Team Providers + +------+ + | Care Order Entry Clerk Name | Role | Phone | + +------+ + PCP | Unavailable | + +------+ + Encounter Details +--------+ + + + + | Date | Type | Department | Care Team | Description | +--------+ + + + + | 06/17/ | Hospital | [facility] | | | | 1991 - | Encounter | MED CTR GENERIC PSY | | | | | | CONV DEPT [address] | | | | 06/18/ | | [place], | | | | 1991 | | [place] [address] | | | | | | [phone] | | | +--------+ + + + [...] [place] | | | | | | [address] | | | | | | | | +--------+---------+ + + + documented as of this encounter Visit Diagnoses Not on filedocumented in this encounter"
--- OUTSIDE RECORDS SUMMARY | ~2019-09-25 | XMS | Encounter Summary ---
Demographics + + + | Address | [address] | | | [place] [address] | + + + | Home Phone [...] [place] | | | | | [address] | | + + + + + Care Team Providers + +------+ + | Care Printing Roller Polisher Name | Role | Phone | [...] + + | 08/20/ | Documentati | [facility] | Katharine Moncada, | Other (urgent | | 2019 | on | CARDIOLOGY [place] | Technologist | report) | | | | [address] | | | | | | [place] | | | | | | [address] | | | | | | [phone] | | | +--------+ + + + [...] [place] | | | | | | [address] | | | | | | | | +--------+---------+ + + + documented as of this encounter Visit Diagnoses Not on filedocumented in this encounter"
--- OUTSIDE RECORDS SUMMARY | ~2019-09-25 | XMS | Encounter Summary ---
Demographics + + + | Address | [address] | | | [place] [address] | + + + | Home Phone [...] [place], [place] | | | | | [address] | | + + + + + Care Team Providers + +------+ + | Care Manager Programs Name | Role | Phone | + +------+ + PCP | Unavailable | + +------+ + Encounter Details +--------+ + + + + | Date | Type | Department | Care Team | Description | +--------+ + + + + | 09/24/ | Hospital | [facility] | | | | 1993 | Encounter | MED CTR LABORATORY | | | | | | [address] | | | | | | [place] | | | | | | [address] | | | | | | [phone] | | | +--------+ + + + [...] | | | | | [place] | | | | | | [address] | | | | | | | | +--------+---------+ + + + documented as of this encounter Visit Diagnoses Not on filedocumented in this encounter"
--- OUTSIDE RECORDS SUMMARY | ~2019-09-25 | XMS | Encounter Summary ---
Demographics + + + | Address | [address] | | | [place] [address] | + + + | Home Phone [...] [place] | | | | | [address] | | + + + + + Care Team Providers + +------+ + | Care Tick Eradicator Name | Role | Phone | [...] [place] | | | | | | [address] | | | | | | [phone] | | | +--------+ + + + [...] [place] | | | | | | [address] | | | | | | | | +--------+---------+ + + + documented as of this encounter Visit Diagnoses Not on filedocumented in this encounter"
--- OUTSIDE RECORDS SUMMARY | ~2019-09-25 | XMS | Encounter Summary ---
Demographics + + + | Address | [address] | | | [place] [address] | + + + | Home Phone [...] [place] | | | | | [address] | | + + + + + Care Team Providers + +------+ + | Care Gauge Controller Name | Role | Phone | [...] + + | 08/13/ | Documentati | [facility] | Katharine Moncada, | Other (urgent | | 2019 | on | CARDIOLOGY [place] | Technologist | report) | | | | [address] | | | | | | [place] | | | | | | [address] | | | | | | [phone] | | | +--------+ + + + [...] [place] | | | | | | [address] | | | | | | | | +--------+---------+ + + + documented as of this encounter Visit Diagnoses Not on filedocumented in this encounter"
--- OUTSIDE RECORDS SUMMARY | ~2019-09-25 | XMS | Encounter Summary ---
Demographics + + + | Address | [address] | | | [place] [address] | + + + | Home Phone [...] [place], [place] | | | | | [address] | | + + + + + Care Team Providers + +------+ + | Care Principal Biostatistician Name | Role | Phone | + +------+ + PCP | Unavailable | + +------+ + Encounter Details +--------+ + + + + | Date | Type | Department | Care Team | Description | +--------+ + + + + | 04/01/ | Hospital | [facility] | | | | 1998 | Encounter | MED CTR XRAY [address] | | | | | | [place] | | | | | | [place] [address] | | | | | | [phone] | | | +--------+ + + + [...] | | | | | [place] | | | | | | [address] | | | | | | | | +--------+---------+ + + + documented as of this encounter Visit Diagnoses Not on filedocumented in this encounter"
--- OUTSIDE RECORDS SUMMARY | ~2019-09-25 | XMS | Encounter Summary ---
Demographics + + + | Address | [address] | | | [place] [address] | + + + | Home Phone [...] [place], [place] | | | | | [address] | | + + + + + Care Team Providers + +------+ + | Care Bath Solution Maker Name | Role | Phone | + +------+ + PCP | Unavailable | + +------+ + Encounter Details +--------+ + + + + | Date | Type | Department | Care Team | Description | +--------+ + + + + | 03/11/ | [facility] | [facility] | Deon Gonzales | | | 2005 | Encounter | MED CTR SLEEP | MD [address] | | | | | [place] [address] | [place] | | | | | [place], [place] | [place] [address] | | | | | [address] | [phone] | | | | | [phone] | | | +--------+ + + + [...] [place] | | | | | | [address] | | | | | | | | +--------+---------+ + + + documented as of this encounter Visit Diagnoses Not on filedocumented in this encounter"
--- OUTSIDE RECORDS SUMMARY | ~2019-09-25 | XMS | Encounter Summary ---
Demographics + + + | Address | [address] | | | [place] [address] | + + + | Home Phone [...] [place] | | | | | [address] | | + + + + + [...] | | | spondylolist | | [address] | | | | | hesis | | [place], | | | | | Spinal | | [place] [address] | | | | | stenosis, | | Phone: | | | | | lumbar | | [phone] | | | | | region, | | Fax: | | | | | without | | [phone] | | | | | neurogenic | [...] | | | | | [address] | [address] [place] | | | | | [place] | [phone] | | | | | [address] | | | | | | [phone] | | | +--------+ + + + [...] Easy mask AW. DL times one with [facility] [place] easy view | | | 2 | Intubation | | | | 2 | | | | | 6 | | | +----+---+ + + | | 1 | AN Bite | | | | 2 | Block | | | | 2 | | | | | 7 | | | +----+---+ + + | | 1 | [place] | | | | 2 | 43-degrees | | | | 3 | | | | | 1 | | | +----+---+ + + | | 1 | [place] off | | | | 4 | [...] | | | | | [place], [place] | | | | | | [phone] | | | | | | | [...]
--- OUTSIDE RECORDS SUMMARY | ~2019-09-25 | XMS | Encounter Summary ---
Demographics + + + | Address | [address] | | | [place] [address] | + + + | Home Phone [...] [place], [place] | | | | | [address] | | + + + + + Care Team Providers + +------+ + | Care Brand Director Name | Role | Phone | + +------+ + PCP | Unavailable | + +------+ + Encounter Details +--------+ + + + + | Date | Type | Department | Care Team | Description | +--------+ + + + + | 04/16/ | [facility] | [facility] | Deon Gonzales | | | 2005 | Encounter | MED CTR SLEEP | MD [address] | | | | | [place] [address] | [place] | | | | | [place], [place] | [place] [address] | | | | | [address] | [phone] | | | | | [phone] | | | +--------+ + + + [...] [place] | | | | | | [address] | | | | | | | | +--------+---------+ + + + documented as of this encounter Visit Diagnoses Not on filedocumented in this encounter"
--- OUTSIDE RECORDS SUMMARY | ~2019-09-25 | XMS | Encounter Summary ---
Demographics + + + | Address | [address] | | | [place] [address] | + + + | Home Phone [...] [place], [place] | | | | | [address] | | + + + + + Care Team Providers + +------+ + | Care Surface Grinder Name | Role | Phone | + +------+ + PCP | Unavailable | + +------+ + Encounter Details +--------+ + + + + | Date | Type | Department | Care Team | Description | +--------+ + + + + | 07/17/ | Hospital | [facility] | | | | 1997 | Encounter | MED CTR EMERGENCY | | | | | | [address] | | | | | | [place] | | | | | | [address] | | | | | | [phone] | | | +--------+ + + + [...] | | | | | [place] | | | | | | [address] | | | | | | | | +--------+---------+ + + + documented as of this encounter Visit Diagnoses Not on filedocumented in this encounter"
--- OUTSIDE RECORDS SUMMARY | ~2019-09-25 | XMS | Encounter Summary ---
Demographics + + + | Address | [address] | | | [place] [address] | + + + | Home Phone [...] [place] | | | | | [address] | | + + + + + Care Team Providers + +------+ + | Care Grinder Mill Operator Name | Role | [...] | 07/06/ | Emergency | [facility] | Yunior [place], | Chest pain, | | 2014 | | MED CTR EMERGENCY | MD [address] | unspecified chest | | | | CENTER [address] | [place], [place] | pain type (Primary | | | | [place], [place] | [address] | Dx) | | | | [address] | | | | | | [phone] | | | +--------+ + + + [...] sent through Care Everywhere.CHEST PAIN, NON CARDIAC (CROATIAN)documented in this encounter Medications at Time of [...] 0 | | | | (VITAMIN D-3) [address] | mouth Once a week. | | [...] | | | | | | | ([facility]) | | | | | | + [...] + + + +---------+ + + | [place]-3 Fatty | Take 1,000 mg by | [...] [place] | | | | | | [address] | | | | | | | [...] [address] | [place] | [phone] | | [facility] | | [address] | | | - LABORATORY | | [...] [address] | [place] | [phone] | | [facility] | | [address] | | | - LABORATORY | | [...] | | | | | | [employer] | | | | | [...] + | [address] | [address] | [place] | [phone] | | [facility] | | [address] | | | - LABORATORY | | [...] mL/min/1.73m2 | [facility] | | | SUDANESE | RATE,ESTIMATED | | MEDICAL | | | | mL/min/1.95z4Wtnj than | | CENTER - | | [...] [address] | [place] | [phone] | | [facility] | | [address] | | | - LABORATORY | | [...] [address] | [place] | [phone] | | [facility] | | [address] | | | - LABORATORY | | [...] | | | | MD NAZARIO JON ([id number]) | | | | | | on [...]
--- OUTSIDE RECORDS SUMMARY | ~2019-09-25 | XMS | Encounter Summary ---
Demographics + + + | Address | [address] | | | [place] [address] | + + + | Home Phone [...] [place] | | | | | [address] | | + + + + + Care Team Providers + +------+ + | Care Yard Loader Operator Name | Role | Phone | [...] + | 07/29/ | Telephone | [facility] | Frandy Teresa, | Other (multiple | | 2013 | | NEUROSURGERY [address] | DO [address] | questions) | | | | [address] [address] | [address] [place], [place] | | | | | [place], [place] | [address] | | | | | [address] | | | | | | [phone] | | | +--------+ + + + [...] | | | | | [place] | | | | | | [address] | | | | | | | | +--------+---------+ + + + documented as of this encounter Visit Diagnoses Not on filedocumented in this encounter"
--- OUTSIDE RECORDS SUMMARY | ~2019-09-25 | XMS | Encounter Summary ---
Demographics + + + | Address | [address] | | | [place] [address] | + + + | Home Phone [...] [place] | | | | | [address] | | + + + + + Care Team Providers + +------+ + | Care Route Sales Associate Name | Role | Phone [...] [place] | | | | | | [address] | | | | | | [phone] | | | +--------+ + + + [...] [place] | | | | | | [address] | | | | | | | | +--------+---------+ + + + documented as of this encounter Visit Diagnoses Not on filedocumented in this encounter"
--- OUTSIDE RECORDS SUMMARY | ~2019-09-25 | XMS | Encounter Summary ---
Demographics + + + | Address | [address] | | | [place] [address] | + + + | Home Phone [...] [place] | | | | | [address] | | + + + + + Care Team Providers + +------+ + | Care Procurement Specialist Name | Role | Phone | [...] | Transcriptions | + + | Interface, Bobbin Inspector In - 10/24/2006 3:09 AM PST | | [facility] | | Road [place], [place] [address] [place] | | [facility] Home[facility] RECORDMed Rec No.: [id number] Date: | | [...]
--- OUTSIDE RECORDS SUMMARY | ~2019-09-25 | XMS | Encounter Summary ---
Demographics + + + | Address | [address] | | | [place] [address] | + + + | Home Phone [...] [place], [place] | | | | | [address] | | + + + + + Care Team Providers + +------+ + | Care Ethylbenzene Oxidizer Name | Role | Phone | + +------+ + PCP | Unavailable | + +------+ + Encounter Details +--------+ + + + + | Date | Type | Department | Care Team | Description | +--------+ + + + + | 12/24/ | Hospital | [facility] | | | | 1998 | Encounter | MED CTR XRAY [address] | | | | | | [place] | | | | | | [place] [address] | | | | | | [phone] | | | +--------+ + + + [...] | | | | | [place] | | | | | | [address] | | | | | | | | +--------+---------+ + + + documented as of this encounter Visit Diagnoses Not on filedocumented in this encounter"
--- OUTSIDE RECORDS SUMMARY | ~2019-09-25 | XMS | Encounter Summary ---
Demographics + + + | Address | [address] [facility] [address] | | | [place] [address] | + + + | Home Phone [...] [place] | | | | | [address] | | + + + + + Care Team Providers + +------+ + | Care Pocket Grinder Operator Name | Role | Phone [...] | | | | | | [place] [address] | | | | | | [phone] | | | | | | | [...] in | | | | | | [place] with a | | | | | [...] [facility] | | | | | | Laboratory, [place], | | | | | | [place], delivered | | | | | | [...] by | | | | | | [id number]-J: | | | | | | Increased [...] istryMHC-1: | | | | | | [id number] stain | | | | | | [...] + + + + | [facility] | [address] | [place] [address] | | | PATHOLOGY | [place] FELIX | | | + + + + + documented in this encounter Visit Diagnoses Not on filedocumented in this encounter
--- OUTSIDE RECORDS SUMMARY | ~2019-09-25 | XMS | Encounter Summary ---
Demographics + + + | Address | [address] | | | [place] [address] | + + + | Home Phone [...] [place] | | | | | [address] | | + + + + + Care Team Providers + +------+ + | Care Medart Operator Name | Role | Phone | [...] + + | 06/28/ | Telephone | [facility] | Ashley Chávez | Talia (Patient | | 2019 | | CARDIOLOGY [place] Abad, Water Operator | called to cancel her | | | | [address] | | appointment) | | | | [place] | | | | | | [address] | | | | | | [phone] | | | +--------+ + + + [...] [place] | | | | | | [address] | | | | | | | | +--------+---------+ + + + documented as of this encounter Visit Diagnoses Not on filedocumented in this encounter"
--- OUTSIDE RECORDS SUMMARY | ~2019-09-25 | XMS | Encounter Summary ---
Demographics + + + | Address | [address] | | | [place] [address] | + + + | Home Phone [...] [place] | | | | | [address] | | + + + + + Care Team Providers + +------+ + | Care Automobile Carpets Molder Name | Role | Phone | [...] | [address] | [place] [address] | | | | | [place], [place] | [phone] | | | | | [address] | | | | | | [phone] | | | +--------+ + + + [...] | | | | | | [facility] | | | | | | [address] | | | | | | | | +--------+---------+ + + + documented as of this encounter Visit Diagnoses Not on filedocumented in this encounter"
--- OUTSIDE RECORDS SUMMARY | ~2019-09-25 | XMS | Encounter Summary ---
Demographics + + + | Address | [address] | | | [place] [address] | + + + | Home Phone [...] [place], [place] | | | | | [address] | | + + + + + Care Team Providers + +------+ + | Care Fiber Technician Name | Role | Phone | + +------+ + PCP | Unavailable | + +------+ + Encounter Details +--------+ + + + + | Date | Type | Department | Care Team | Description | +--------+ + + + + | 04/16/ | Hospital | [facility] | | | | 1997 | Encounter | MED CTR XRAY [address] | | | | | | [place] | | | | | | [place] [address] | | | | | | [phone] | | | +--------+ + + + [...] | | | | | [place] | | | | | | [address] | | | | | | | | +--------+---------+ + + + documented as of this encounter Visit Diagnoses Not on filedocumented in this encounter"
--- OUTSIDE RECORDS SUMMARY | ~2019-09-25 | XMS | Encounter Summary ---
Demographics + + + | Address | [address] | | | [place] [address] | + + + | Home Phone [...] [place], [place] | | | | | [address] | | + + + + + Care Team Providers + +------+ + | Care Repossession Agent Name | Role | Phone | + +------+ + PCP | Unavailable | + +------+ + Encounter Details +--------+ + + + + | Date | Type | Department | Care Team | Description | +--------+ + + + + | 01/16/ | Hospital | [facility] | | | | 2002 | Encounter | MED CTR XRAY [address] | | | | | | [place] | | | | | | [place] [address] | | | | | | [phone] | | | +--------+ + + + [...] | | | | | [place] | | | | | | [address] | | | | | | | | +--------+---------+ + + + documented as of this encounter Visit Diagnoses Not on filedocumented in this encounter"
--- OUTSIDE RECORDS SUMMARY | ~2019-09-25 | XMS | Encounter Summary ---
Demographics + + + | Address | [address] | | | [place] [address] | + + + | Home Phone [...] [place] | | | | | [address] | | + + + + + Care Team Providers + +------+ + | Care Proof Coin Collector Name | Role | Phone | [...] [place], [place] | | | | | [place], [place] | [phone] | | | | | [address] | | | | | | [phone] | | | +--------+ + + + [...] | | | | | [place] | | | | | | [address] | | | | | | | | +--------+---------+ + + + documented as of this encounter Visit Diagnoses Not on filedocumented in this encounter"
--- OUTSIDE RECORDS SUMMARY | ~2019-09-25 | XMS | Encounter Summary ---
Demographics + + + | Address | [address] | | | [place] [address] | + + + | Home Phone [...] [place] | | | | | [address] | | + + + + + Care Team Providers + +------+ + | Care Director Of Strategic Marketing Name | Role | Phone [...] + + | 08/13/ | Documentati | [facility] | Katharine Moncada, | Other (urgent | | 2019 | on | CARDIOLOGY [place] | Technologist | report) | | | | [address] | | | | | | [place] | | | | | | [address] | | | | | | [phone] | | | +--------+ + + + [...] [place] | | | | | | [address] | | | | | | | | +--------+---------+ + + + documented as of this encounter Visit Diagnoses Not on filedocumented in this encounter"
--- OUTSIDE RECORDS SUMMARY | ~2019-09-25 | XMS | Encounter Summary ---
Demographics + + + | Address | [address] | | | [place] [address] | + + + | Home Phone [...] [place], [place] | | | | | [address] | | + + + + + Care Team Providers + +------+ + | Care Liquor Inspector Name | Role | Phone | + +------+ + PCP | Unavailable | + +------+ + Encounter Details +--------+ + + + + | Date | Type | Department | Care Team | Description | +--------+ + + + + | 01/26/ | Hospital | [facility] | Dale, Heath E A, | | | 2012 | Encounter | MED CTR XRAY [address] | MD [address] | | | | | [place] | [place] | | | | | [place] [address] | [address] | | | | | [phone] | | | +--------+ + + + [...] [place] | | | | | | [address] | | | | | | | [...] [facility] Diagnostic Imaging Department | [facility] | | [address] | [facility] [...] Transcribed | | | Date/Time: 01/27/2012 17:18 Geothermal Technician: | | | <Electronically Signed by Willie Perry MD> 01/27/12 4664 | | + + + + + | Procedure Note | + + | Juan, Rad Conversion - 11/30/2013 5:03 PM [facility] | | Diagnostic Imaging Department [address] [place] [address] | | BILATERAL KNEES, THREE VIEWS: 01/27/2012 [...] 17:12 | |Transcribed Date/Time: 01/27/2012 17:18 | |Geothermal Technician: | |<Electronically Signed by Willie Perry MD> 01/27/12 018 | + + + +---------+ + + [...]
--- OUTSIDE RECORDS SUMMARY | ~2019-09-25 | XMS | Encounter Summary ---
Demographics + + + | Address | [address] | | | [place] [address] | + + + | Home Phone [...] [place], [place] | | | | | [address] | | + + + + + Care Team Providers + +------+ + | Care Estate Attorney Name | Role | Phone | + +------+ + PCP | Unavailable | + +------+ + Encounter Details +--------+ + + + + | Date | Type | Department | Care Team | Description | +--------+ + + + + | 05/23/ | Hospital | [facility] | | | | 1991 | Encounter | MED CTR XRAY [address] | | | | | | [place] | | | | | | [place] [address] | | | | | | [phone] | | | +--------+ + + + [...] | | | | | [place] [facility] | | | | | | [address] | | | | | | | | +--------+---------+ + + + documented as of this encounter Visit Diagnoses Not on filedocumented in this encounter"
--- OUTSIDE RECORDS SUMMARY | ~2019-09-25 | XMS | Encounter Summary ---
Demographics + + + | Address | [address] | | | [place] [address] | + + + | Home Phone [...] [place] | | | | | [address] | | + + + + + Care Team Providers + +------+ + | Care Remelt Worker Name | Role | Phone | [...] + + | 08/24/ | Documentati | [facility] | Katharine Moncada, | Other (urgent | | 2019 | on | CARDIOLOGY [place] | Technologist | report) | | | | [address] | | | | | | [place] | | | | | | [address] | | | | | | [phone] | | | +--------+ + + + [...] [place] | | | | | | [address] | | | | | | | | +--------+---------+ + + + documented as of this encounter Visit Diagnoses Not on filedocumented in this encounter"
--- OUTSIDE RECORDS SUMMARY | ~2019-09-25 | XMS | Encounter Summary ---
Demographics + + + | Address | [address] | | | [place] [address] | + + + | Home Phone [...] [place], [place] | | | | | [address] | | + + + + + Care Team Providers + +------+ + | Care Scarf And Anneal Operator Name | Role | Phone | + +------+ + PCP | Unavailable | + +------+ + Encounter Details +--------+ + + + + | Date | Type | Department | Care Team | Description | +--------+ + + + + | 04/16/ | Hospital | [facility] | | | | 1997 | Encounter | MED CTR XRAY [address] | | | | | | [place] | | | | | | [place] [address] | | | | | | [phone] | | | +--------+ + + + [...] | | | | | [place] | | | | | | [address] | | | | | | | | +--------+---------+ + + + documented as of this encounter Visit Diagnoses Not on filedocumented in this encounter"
--- OUTSIDE RECORDS SUMMARY | ~2019-09-25 | XMS | Encounter Summary ---
Demographics + + + | Address | [address] | | | [place] [address] | + + + | Home Phone [...] [place] | | | | | [address] | | + + + + + Care Team Providers + +------+ + | Care Hand Flesher Name | Role | Phone | + [...] + + | 03/26/ | Telephone | [facility] | Thierry Fry | Medication Prior | | 2015 | | MEDICINE [facility] | MD Lisa [address] | Authorization | | | | [facility] | [address] [place] | (Dexilant 60Mg) | | | | [place] [address] | [address] | | | | | [phone] | | | +--------+ + + + [...] [place] | | | | | | [address] | | | | | | | | +--------+---------+ + + + documented as of this encounter Visit Diagnoses Not on filedocumented in this encounter"
--- OUTSIDE RECORDS SUMMARY | ~2019-09-25 | XMS | Encounter Summary ---
Demographics + + + | Address | [address] | | | [place] [address] | + + + | Home Phone [...] [place] | | | | | [address] | | + + + + + Care Team Providers + +------+ + | Care Hand Sample Maker Name | Role | Phone | + +------+ + | Natalee Andersen NP | PCP | | + +------+ + Encounter Details +--------+ + + + + | Date | Type | Department | Care Team | Description | +--------+ + + + + | 06/25/ | Hospital | [facility] | Frandy Teresa, | Acquired | | 2014 | Encounter | MED CTR XRAY [address] | DO [address] | spondylolisthesis | | | | [place] | [address] [place], [place] | | | | | [place] [address] | [address] | | | | | [phone] | | | +--------+ + + + [...] + + + +---------+ + + | [place]-3 Fatty | Take 1,000 mg by | [...] [place] | | | | | | [address] | | | | | | | | +--------+---------+ + + + documented as of this encounter Visit Diagnoses + + | Diagnosis | + + | Acquired spondylolisthesis | + + documented in this encounter"
--- OUTSIDE RECORDS SUMMARY | ~2019-09-25 | XMS | Encounter Summary ---
Demographics + + + | Address | [address] | | | [place] [address] | + + + | Home Phone [...] [place] | | | | | [address] | | + + + + + Care Team Providers + +------+ + | Care Blocker Metal Base Name | Role | Phone | + [...] 2019 | | CARDIOLOGY [place] | Pollo, Class A Truck Driver | to take monitor | | | | [address] | | off. ) | | | | [address] | | | | | | [place] | | | | | | [address] | | | | | | [phone] | | | +--------+ + + + [...] [place] | | | | | | [address] | | | | | | | | +--------+---------+ + + + documented as of this encounter Visit Diagnoses Not on filedocumented in this encounter"
--- OUTSIDE RECORDS SUMMARY | ~2019-09-25 | XMS | Encounter Summary ---
Demographics + + + | Address | [address] | | | [place] [address] | + + + | Home Phone [...] [place] | | | | | [address] | | + + + + + [...] [place] | | | | | | [address] | | | | | | [phone] | | | +--------+ + + + [...] [place] | | | | | | [address] | | | | | | | | +--------+---------+ + + + documented as of this encounter Visit Diagnoses Not on filedocumented in this encounter"
--- OUTSIDE RECORDS SUMMARY | ~2019-09-25 | XMS | Encounter Summary ---
Demographics + + + | Address | [address] | | | [place] [address] | + + + | Home Phone [...] [place] | | | | | [address] | | + + + + + Care Team Providers + +------+ + | Care Agile Business Analyst Name | Role | Phone [...] [address] | [address] [place], [place] | | | | | [place], [place] | [id number] | | | | | [address] | | | | | | [phone] | | | +--------+ + + + [...] | | | | | [place] | | | | | | [address] | | | | | | | | +--------+---------+ + + + documented as of this encounter Visit Diagnoses Not on filedocumented in this encounter"
--- OUTSIDE RECORDS SUMMARY | ~2019-09-25 | XMS | Encounter Summary ---
Demographics + + + | Address | [address] | | | [place] [address] | + + + | Home Phone [...] [place], [place] | | | | | [address] | | + + + + + Care Team Providers + +------+ + | Care Raw Sampler Name | Role | Phone | [...] | [place] | | | | | [phone] | | | +--------+ + + + [...] [place] | | | | | | [address] | | | | | | | | +--------+---------+ + + + documented as of this encounter Visit Diagnoses Not on filedocumented in this encounter
--- OUTSIDE RECORDS SUMMARY | ~2019-09-25 | XMS | Encounter Summary ---
Demographics + + + | Address | [address] | | | [place] [address] | + + + | Home Phone [...] [place] | | | | | [address] | | + + + + + Care Team Providers + +------+ + | Care Ct Scan Special Procedures Technologist Name | Role | Phone | [...] | Frandy Simons DO | [address] | | | | | of skin | [address] | [place], | | | | | sensation | [address] | [place] | | | | | Arthrodesis | [place] | [address] | | | | | status Left | [address] | Phone: | | | | | leg | Phone: | [phone] | | | | | weakness | [phone] | Fax: | | | | | Procedures | Fax: | [phone] | | | | | MRI Lumbar | [phone] | | | | | | Spine [...] | Frandy Simons DO | [address] | | | | | of skin | [address] | [place], | | | | | sensation | [address] | [place] | | | | | Arthrodesis | [place] | [address] | | | | | status Left | [address] | Phone: | | | | | leg | Phone: | [phone] | | | | | weakness | [phone] | Fax: | | | | | Procedures | Fax: | [phone] | | | | | MRI Lumbar | [phone] | | | | | | Spine wo | | | | | | | Contrast | | | +--------+--------+ + + + + Encounter Details +--------+ + + + + | Date | Type | Department | Care Team | Description | +--------+ + + + + | 08/19/ | Hospital | [facility] | Frandy Teresa, | Status post lumbar | | 2013 | Encounter | MED CTR MRI [address] | DO [address] | spinal fusion; Left | | | | [place] [place], | [address] [place] | leg numbness; Left | | | | [place] [address] | [address] | leg weakness | | | | [phone] | | | +--------+ + + + [...] [place] | | | | | | [address] | | | | | | | [...] the round structure with high T1 and [id number] in the right L3 vertebral | | [...] + | MISCELLANEOUS LAB | | | [phone] | + +---------+ + + | MISCELANIOUS LAB | | | [phone] | + +---------+ + + documented in [...]
--- OUTSIDE RECORDS SUMMARY | ~2019-09-25 | XMS | Clinical Summary ---
Demographics + + + | Address | [address] | | | [place] [address] | + + + | Home Phone [...] [place] | | | | | [address] | | + + + + + Care Team Providers + +------+ + | Care Etymology Professor Name | Role | Phone | + +------+ + PCP | Unavailable | + +------+ + Source Comments EDWARD is fully live on both [facility] Ambulatory and [facility] InPatient.[facility] Allergies Not on File Medications [...] | [facility] | xxxxxxxxxx | 02/22/20 | [phone] | [address] | Medica | | | RE A & | | 15-Pre | 1 | [address] | re | | | B | | sent | | [place] | | | | | | | | [address] | | + +--------+ +--------+ + +--------+ [...] Self | [birth year] | | [address] | | | al/Fam | | 1955 | [phone] | [address] [place] | | | [place] | | | 5 (Home) | [address] | + +--------+ +--------+ + +"
--- OUTSIDE RECORDS SUMMARY | ~2019-09-25 | XMS | Clinical Summary ---
Demographics + + + | Address | [address] | | | [place] [address] | + + + | Home Phone [...] + | Author | [facility] (Historical as of | | | 06-09-19) | + + + | Organization | [facility] (Historical as of | | | 06-09-19) [...] Providers + +------+ + | Care Brand Sales Manager Name | Role | Phone [...] | | Activ | | (VITAMIN D3) [address] | a week. | | | | [...] + | T2DM (type 2 diabetes mellitus) ([facility]) | 04/13/2013 | + + [...] +------+-------+ + | MEDICARE | MEDICA | [id number] | | | [address] | | | RE | | | | [place] [address] | | | IP-OP | | | [...] | [birth year] | Home: | [address] | | | al/Fam | | 1955 | [phone] | [address] [place] | | | [place] | | | [phone] | + +--------+ +--------+ + +
--- OUTSIDE RECORDS SUMMARY | ~2019-09-25 | XMS | Encounter Summary ---
Demographics + + + | Address | [address] | | | [place] [address] | + + + | Home Phone [...] [place] | | | | | [address] | | + + + + + Care Team Providers + +------+ + | Care Churn Driller Name | Role | Phone | [...] Closed | | Radiology | Diagnoses | [place], | | | | | | Thoracic or | Natalee L, | | | | | | lumbosacral | TERRITORY SALES MANAGER MEDICAL [address] | | | | | | neuritis or | [address] | | | | | | | [address] | | | | | | radiculitis, | [place], | | | | | | unspecified | [place] [address] | | | | | | | Phone: | | | | | | Degeneration | [phone] | | | | | | of lumbar | Fax: | | | | | | or | [phone] | | | | | | lumbosacral [...] + + | 03/11/ | Hospital | [facility] | Natalee Andersen | Thoracic or | | 2013 | Encounter | MED CTR MRI [address] | L, TERRITORY SALES MANAGER MEDICAL [address] | lumbosacral neuritis | | | | [place], | [address] | or radiculitis, | | | | [place] [address] | [place] [address] | unspecified; | | | | [phone] | [phone] | Degeneration of | | | | [...] + + + +---------+ + + | [place]-3 Fatty | Take 1,000 mg by | [...] [place] | | | | | | [address] | | | | | | | [...] + | MISCELLANEOUS LAB | | | [phone] | + +---------+ + + | MISCELANIOUS LAB | | | [phone] | + +---------+ + + documented in this encounter Visit Diagnoses + + | Diagnosis | + + | Thoracic or lumbosacral neuritis or radiculitis, unspecified | + + | Degeneration of lumbar or lumbosacral intervertebral disc | + + documented in this encounter"
--- OUTSIDE RECORDS SUMMARY | ~2019-09-25 | XMS | Encounter Summary ---
Demographics + + + | Address | [address] | | | [place] [address] | + + + | Home Phone [...] [place] | | | | | [address] | | + + + + + Care Team Providers + +------+ + | Care Electrician Research Name | Role | Phone | [...] | 03/10/ | Refill | [facility] | Katharine Cardona PA-C | Medication Refill | | 2014 | | MEDICINE [address] | [address] [place] | | | | | Street [place] | [place] [address] | | | | | [place] [address] | [phone] | | | | | [phone] | | | +--------+--------+ + + + [...] [place] | | | | | | [address] | | | | | | | | +--------+---------+ + + + documented as of this encounter Visit Diagnoses + + | Diagnosis | + + | Essential hypertension - Primary Unspecified essential hypertension | + + documented in this encounter"
--- OUTSIDE RECORDS SUMMARY | ~2019-09-25 | XMS | Encounter Summary ---
Demographics + + + | Address | [address] | | | [place] [address] | + + + | Home Phone [...] [place] | | | | | [address] | | + + + + + Care Team Providers + +------+ + | Care Ed Tech Name | Role | Phone | [...] updated | | | | | [address], | address | | | | | [address] [place] | | | | | | [place] [address] | | | | | | [phone] | | | +--------+ + + + [...] [place] | | | | | | [address] | | | | | | | | +--------+---------+ + + + documented as of this encounter Visit Diagnoses Not on filedocumented in this encounter"
--- OUTSIDE RECORDS SUMMARY | ~2019-09-25 | XMS | Encounter Summary ---
Demographics + + + | Address | [address] | | | [place] [address] | + + + | Home Phone [...] [place] | | | | | [address] | | + + + + + [...] | | | | | | | [address] | | | | | | | Phone: | | | | | | | [phone] | | | | | | | Fax: | | | | | | | [phone] | | +--------+ + + + + + Reason for Visit + + + | Reason | Comments | + + + | Follow-up | 4 Week PO | + + + Encounter Details +--------+---------+ + + + | Date | Type | Department | Care Team | Description | +--------+---------+ + + + | 07/25/ | Office | [facility] | Frandy Teresa, | Lumbar spondylosis | | 2013 | Visit | NEUROSURGERY [address] | DO [address] | (Primary Dx); S/P | | | | [address] | [address] [place], [place] | lumbar fusion | | | | [place] | [address] | | | | | [address] | | | | | | [phone] | | | +--------+---------+ + + + [...] Teresa DO [address] [facility] [place], [place] [address] FAX: NEUROSURGERY SURGICAL FOLLOW-UP CHIEF COMPLAINT: Chief [...] Take 15 mg by mouth nightl y. [place]-3 Fatty Acids (FISH OIL CONCENTRATE) 1000 MG [...] [place] | | | | | | [id number] | | | | | | | [...] | | S1.Dictated and Signed by: Wolf Claabrese MD Electronically signed: 09/27/2014 5:11 PM | [...] + | MISCELLANEOUS LAB | | | [phone] | + +---------+ + + | MISCELANIOUS LAB | | | [phone] | + +---------+ + + documented in this encounter Visit Diagnoses + + | Diagnosis | + + | Lumbar spondylosis - Primary Lumbosacral spondylosis without myelopathy | + + | S/P lumbar fusion Arthrodesis status | + + documented in this encounter
--- OUTSIDE RECORDS SUMMARY | ~2019-09-25 | XMS | Encounter Summary ---
Demographics + + + | Address | [address] | | | [place] [address] | + + + | Home Phone [...] [place] | | | | | [address] | | + + + + + Care Team Providers + +------+ + | Care Ceramics Artist Name | Role | Phone | [...] + | 07/15/ | Telephone | [facility] | Russell Alfaro PA | Other | | 2016 | | SLEEP DISORDER 401 | [address] | | | | | [address] [place] | [place] [facility] [place] | | | | | [place] [address] | [address] | | | | | [phone] | | | +--------+ + + + [...] [place] | | | | | | [address] | | | | | | | | +--------+---------+ + + + documented as of this encounter Visit Diagnoses Not on filedocumented in this encounter"
--- OUTSIDE RECORDS SUMMARY | ~2019-09-25 | XMS | Encounter Summary ---
Demographics + + + | Address | [address] | | | [place] [address] | + + + | Home Phone [...] [place] | | | | | [address] | | + + + + + Care Team Providers + +------+ + | Care Manganese Heater Name | Role | Phone | [...] + + | 08/28/ | Telephone | [facility] | Ashley Chávez | Other (Patient has | | 2019 | | CARDIOLOGY [place] Abad, Public Health Administrator | questions about | | | | [address] | | monitor. ) | | | | [place] | | | | | | [address] | | | | | | [phone] | | | +--------+ + + + [...] [place] | | | | | | [address] | | | | | | | | +--------+---------+ + + + documented as of this encounter Visit Diagnoses Not on filedocumented in this encounter"
--- OUTSIDE RECORDS SUMMARY | ~2019-09-25 | XMS | Encounter Summary ---
Demographics + + + | Address | [address] | | | [place] [address] | + + + | Home Phone [...] [place] | | | | | [address] | | + + + + + Care Team Providers + +------+ + | Care Utility Tractor Operator Name | Role | Phone [...] + | 12/03/ | Refill | [facility] | Frandy Teresa, | Medication Refill | | 2014 | | NEUROSURGERY [address] | DO [address] | | | | | [address] | [address] [place], [place] | | | | | [place], [place] | [id number] | | | | | [address] | | | | | | [phone] | | | +--------+--------+ + + + [...] | | | | | [place] | | | | | | [address] | | | | | | | | +--------+---------+ + + + documented as of this encounter Visit Diagnoses Not on filedocumented in this encounter"
--- OUTSIDE RECORDS SUMMARY | ~2019-09-25 | XMS | Encounter Summary ---
Demographics + + + | Address | [address] | | | [place] [address] | + + + | Home Phone [...] [place] | | | | | [address] | | + + + + + Care Team Providers + +------+ + | Care Top Icer Name | Role | Phone | [...] [address] | [address] [place], [place] | | | | | [place], [place] | [address] | | | | | [address] | | | | | | [phone] | | | +--------+ + + + [...] [place] | | | | | | [address] | | | | | | | [...] + | MISCELLANEOUS LAB | | | [phone] | + +---------+ + + | MISCELANIOUS LAB | | | [phone] | + +---------+ + + documented in this encounter Visit Diagnoses + + | Diagnosis | + + | Back pain - Primary Backache, unspecified | + + documented in this encounter"
--- OUTSIDE RECORDS SUMMARY | ~2019-09-25 | XMS | Encounter Summary ---
Demographics + + + | Address | [address] | | | [place] [address] | + + + | Home Phone [...] [place] | | | | | [address] | | + + + + + Care Team Providers + +------+ + | Care Rn Neonatal Name | Role | Phone | + [...] | | | | | pain, | [place], [place] | | | | | | bilateral | [address] | | | | | | Degenerative | Phone: | | | | | | disc | [phone] | | | | | | disease, | Fax: | | | | | | lumbar | [phone] | | | | | | Spinal [...] [address] | [address] [place], [place] | (Primary Dx); Knee | | | | [place], [place] | [address] | pain, bilateral; | | | | [address] | | DEGENERATIVE DISC | | | | [phone] | | DISEASE, LUMBAR | | | [...] | | | | | [place] | | | | | | [id number] | | | | | | | [...]
--- OUTSIDE RECORDS SUMMARY | ~2019-09-25 | XMS | Encounter Summary ---
Demographics + + + | Address | [address] | | | [place] [address] | + + + | Home Phone [...] [place] | | | | | [address] | | + + + + + Care Team Providers + +------+ + | Care Storeroom Clerk Name | Role | Phone | [...] | | [address] | [place], [place] | | | | | [place], [place] | [address] | | | | | [address] | | | | | | [phone] | | | +--------+ + + + [...] | | | | | [place] | | | | | | [address] | | | | | | | [...] 0.83 m/s | | | MV Dec Toole: 2.85 m/s2 MV DecT: 282.89 ms MV E Teodoro: 0.80 | | | m/s MV E/A Ratio: 0.96 E/E' Sept: 12.59 E' Lat: 0.08 m/s | | | E' Sept: 0.06 m/s RAP: 10 mmHg RV S': 0.11 m/s RVSP: | | | 27.96 mmHg TR maxP.96 mmHg TR Vmax: 2.11 m/s | | | Spout Worker: Authenticated by: Desiree Peterson MD Report Date/Time: | | | -- [id number]_1:31:1 | | + + + + + [...] (A-L): 19.60 | | ml/m2LAAs A2C: 15.44 [id number] A-L A2C: 43.84 mlLAESV MOD A2C: 42.12 mlLALs A2C: | | 4.61 cmLAAs A4C: 14.18 [id number] A-L A4C: 38.73 mlLAESV MOD A4C: 37.04 mlLALs A4C: | | 4.41 cmRAAs: 12.15 [id number] A-L: 28.54 mlRAESV MOD: 28.66 mlRALs: 4.39 | | cmTAPSE: 2.42 cmAV Env.Ti: 293.94 msAV maxP.18 mmHgAV meanP.09 mmHgAV | | Vmax: 1.88 m/Eddie Vmean: 1.25 m/Eddie VTI: 36.84 cmAVA Vmax: 2.06 cm2AVA (VTI): | | 2.24 [id number] Vmax: 0.00 cm2/m2AVAI (VTI): 0.00 cm2/m2LVOT Env.Ti: 299.59 msLVOT | | maxP.52 mmHgLVOT meanP.65 mmHgLVSI Dopp: 38.55 ml/m2LVSV Dopp: 82.89 | | mlLVOT Vmax: 1.27 m/sLVOT Vmean: 0.91 m/sLVOT VTI: 27.27 cmMV A Teodoro: 0.83 m/sMV | | Dec Toole: 2.85 m/s2MV DecT: 282.89 msMV E Teodoro: 0.80 m/sMV E/A Ratio: 0.96E/E' | | Sept: 12.59E' Lat: 0.08 m/sE' Sept: 0.06 m/sRAP: 10 mmHgRV S': 0.11 m/sRVSP: | | 27.96 mmHgTR maxP.96 mmHgTR Vmax: 2.11 m/s Spout Worker:Authenticated by: | | Desiree Peterson MDReport Date/Time: -- [id number]:31:1 IMPRESSION: 1. Overall left | | ventricular [...] A Teodoro: 0.83 m/s | |MV Dec Toole: 2.85 m/s2 | |MV DecT: 282.89 ms | |MV E Teodoro: 0.80 m/s | |MV E/A Ratio: 0.96 | |E/E' Sept: 12.59 | |E' Lat: 0.08 m/s | |E' Sept: 0.06 m/s | |RAP: 10 mmHg | |RV S': 0.11 m/s | |RVSP: 27.96 mmHg | |TR maxP.96 mmHg | |TR Vmax: 2.11 m/s | | | |Spout Worker: | |Authenticated by: Desiree Peterson MD | |Report Date/Time: -- [id number]:31:1 | | | |IMPRESSION: | |1. Overall [...]
--- OUTSIDE RECORDS SUMMARY | ~2019-09-25 | XMS | Encounter Summary ---
Demographics + + + | Address | [address] | | | [place] [address] | + + + | Home Phone [...] [place], [place] | | | | | [address] | | + + + + + Care Team Providers + +------+ + | Care Real Estate Subagent Name | Role | Phone | + +------+ + PCP | Unavailable | + +------+ + Encounter Details +--------+ + + + + | Date | Type | Department | Care Team | Description | +--------+ + + + + | 02/02/ | Hospital | [facility] | | | | 1997 | Encounter | MED CTR EMERGENCY | | | | | | [address] | | | | | | [place] | | | | | | [address] | | | | | | [phone] | | | +--------+ + + + [...] | | | | | [place] | | | | | | [address] | | | | | | | | +--------+---------+ + + + documented as of this encounter Visit Diagnoses Not on filedocumented in this encounter"
--- OUTSIDE RECORDS SUMMARY | ~2019-09-25 | XMS | Encounter Summary ---
Demographics + + + | Address | [address] | | | [place] [address] | + + + | Home Phone [...] [place] | | | | | [address] | | + + + + + Care Team Providers + +------+ + | Care Weather Observer Name | Role | Phone | [...] + + | 08/20/ | Documentati | [facility] | Katharine Moncada, | Other (urgent | | 2019 | on | CARDIOLOGY [place] | Technologist | report) | | | | [address] | | | | | | [place] | | | | | | [address] | | | | | | [phone] | | | +--------+ + + + [...] [place] | | | | | | [address] | | | | | | | | +--------+---------+ + + + documented as of this encounter Visit Diagnoses Not on filedocumented in this encounter"
--- OUTSIDE RECORDS SUMMARY | ~2019-09-25 | XMS | Encounter Summary ---
Demographics + + + | Address | [address] | | | [place] [address] | + + + | Home Phone [...] [place] | | | | | [address] | | + + + + + Care Team Providers + +------+ + | Care Bakery Team Member Name | Role | Phone | [...] + | 02/21/ | Refill | [facility] | Deon Gonzales | Medication Refill | | 2012 | | SLEEP DISORDER [address] | MD [address] | | | | | [address] [place] | [address] [place] | | | | | [place] [address] | [place] [address] | | | | | [phone] | [phone] | | | | | | | [...] [place] | | | | | | [address] | | | | | | | | +--------+---------+ + + + documented as of this encounter Visit Diagnoses + + | Diagnosis | + + | Obstructive sleep apnea (adult) (pediatric) - Primary | + + documented in this encounter"
--- OUTSIDE RECORDS SUMMARY | ~2019-09-25 | XMS | Encounter Summary ---
Demographics + + + | Address | [address] | | | [place] [address] | + + + | Home Phone [...] [place] | | | | | [address] | | + + + + + Care Team Providers + +------+ + | Care Ambulance Assistant Name | Role | Phone | [...] + | 08/13/ | Documentati | [facility] | Katharine Moncada, | Other (urgent | | 2019 | on | CARDIOLOGY [place] | Technologist | report) | | | | [address] | | | | | | [place] | | | | | | [address] | | | | | | [phone] | | | +--------+ + + + [...] [place] | | | | | | [address] | | | | | | | | +--------+---------+ + + + documented as of this encounter Visit Diagnoses Not on filedocumented in this encounter"
--- OUTSIDE RECORDS SUMMARY | ~2019-09-25 | XMS | Clinical Summary ---
Demographics + + + | Address | [address] | | | [place] [address] | + + + | Home Phone [...] [place] | | | | | [address] | | + + + + + Care Team Providers + +------+ + | Care Building Equipment Inspector Name | Role | Phone | + +------+ + PCP | Unavailable | + +------+ + Source Comments EDWARD is fully live on both [facility] Ambulatory and [facility] InPatient.[facility] Allergies Not on File Medications Not [...] | [facility] | xxxxxxxxxx | 02/22/20 | [phone] | [address] | [facility] | | | RE A & | | 15-Pre | 1 | [address] | re | | | B | | sent | | [place] | | | | | | | | [address] | | + +--------+ +--------+ + +--------+ [...] Self | [birth year] | | [address] | | al/Fam | | 1955 | [phone] | [address] [place] | | | devonte | | | 5 (Home) | [address] | + +--------+ +--------+ + +"
--- OUTSIDE RECORDS SUMMARY | ~2019-09-25 | XMS | Encounter Summary ---
Demographics + + + | Address | [address] | | | [place] [address] | + + + | Home Phone [...] [place], [place] | | | | | [address] | | + + + + + Care Team Providers + +------+ + | Care Senior Quality Engineer Name | Role | Phone | + +------+ + PCP | Unavailable | + +------+ + Encounter Details +--------+ + + + + | Date | Type | Department | Care Team | Description | +--------+ + + + + | 04/01/ | Hospital | [facility] | | | | 1998 | Encounter | MED CTR XRAY [address] | | | | | | [address] [place] | | | | | | [place] [address] | | | | | | [phone] | | | +--------+ + + + [...] | | | | | [place] | | | | | | [address] | | | | | | | | +--------+---------+ + + + documented as of this encounter Visit Diagnoses Not on filedocumented in this encounter"
--- OUTSIDE RECORDS SUMMARY | ~2019-09-25 | XMS | Encounter Summary ---
Demographics + + + | Address | [address] [facility] [address] [address] | | | [place] [address] | + + + | Home Phone [...] [place] | | | | | [address] | | + + + + + Care Team Providers + +------+ + | Care Cytology Laboratory Manager Name | Role | Phone | + +------+ + PCP | Unavailable | + +------+ + Encounter Details +--------+ + + + + | Date | Type | Department | Care Team | Description | +--------+ + + + + | 07/03/ | Office | General Internal | Note, Outpatient | Progress Note | | 1996 | Visit-Trans | Medicine [address] | Clinic | | | | isabelle | [address] | | | | | | Mailcode: L475 | | | | | | Outpatient Clinic | | | | | | [address] | | | | | | [place], [place] | | | | | | [address] | | | | | | [phone] | | | +--------+ + + + [...] as of this encounter Progress Notes Interface, Tie Cutter In - 12/11/2006 5:03 AM [facility] [...]
--- OUTSIDE RECORDS SUMMARY | ~2019-09-25 | XMS | Encounter Summary ---
Demographics + + + | Address | [address] [facility] [address] | | | [place] [address] | + + + | Home Phone [...] [place] | | | | | [address] | | + + + + + Care Team Providers + +------+ + | Care Stamp Pad Finisher Name | Role | Phone | [...] | | | | | | [place] | | | | | | [place] [address] | | | | | | [phone] | | | +--------+ + + + [...] | | + +---------+ + + | [facility] DEPARTMENT OF | | | | | RADIOLOGY | | | | + +---------+ + + documented in this encounter Visit Diagnoses Not on filedocumented in this encounter"
--- OUTSIDE RECORDS SUMMARY | ~2019-09-25 | XMS | Encounter Summary ---
Demographics + + + | Address | [address] | | | [place] [address] | + + + | Home Phone [...] [place] | | | | | [address] | | + + + + + Care Team Providers + +------+ + | Care Human Resources Office Assistant Name | Role | Phone [...] + | 03/06/ | Office | [facility] | Deon Gonzales | ROGERS (obstructive | | 2012 | Visit | SLEEP DISORDER [address] | MD [address] | sleep apnea) | | | | [address] [place] | [address] [place] | (Primary Dx); | | | | [place] [address] | [place] [address] | Sleepiness | | | | [phone] | [phone] | | | | | | | [...] differen t from the original. 03/06/13 [address] Sleepiness Scale Sitting and reading 3 Watching [...] by mouth Daily., Disp: , Rfl: ; [place]-3 Fatty Acids (FISH OIL CONCENTRATE) 1000 MG [...] | | | | | [place] | | | | | | [phone] | | | | | | | | +--------+---------+ + + + documented as of this encounter Visit Diagnoses + + | Diagnosis | + + | ROGERS (obstructive sleep apnea) - Primary Obstructive sleep apnea (adult) (pediatric) | + + | Sleepiness Other alteration of consciousness | + + documented in this encounter"
--- OUTSIDE RECORDS SUMMARY | ~2019-09-25 | XMS | Encounter Summary ---
Demographics + + + | Address | [address] | | | [place] [address] | + + + | Home Phone [...] [place], [place] | | | | | [address] | | + + + + + Care Team Providers + +------+ + | Care Malt House Supervisor Name | Role | Phone | + +------+ + PCP | Unavailable | + +------+ + Encounter Details +--------+ + + + + | Date | Type | Department | Care Team | Description | +--------+ + + + + | 05/25/ | Hospital | [facility] | | | | 1991 | Encounter | MED CTR LABORATORY | | | | | | [address] | | | | | | [place] | | | | | | [address] | | | | | | [phone] | | | +--------+ + + + [...] | | | | | [place] | | | | | | [address] | | | | | | | | +--------+---------+ + + + documented as of this encounter Visit Diagnoses Not on filedocumented in this encounter"
--- OUTSIDE RECORDS SUMMARY | ~2019-09-25 | XMS | Encounter Summary ---
Demographics + + + | Address | [address] | | | [place] [address] | + + + | Home Phone [...] [place], [place] | | | | | [address] | | + + + + + Care Team Providers + +------+ + | Care Drilling Plant Operator Name | Role | Phone | + +------+ + PCP | Unavailable | + +------+ + Encounter Details +--------+ + + + + | Date | Type | Department | Care Team | Description | +--------+ + + + + | 01/06/ | Hospital | [facility] | | | | 1992 | Encounter | MED CTR LABORATORY | | | | | | [address] | | | | | | [place] | | | | | | [address] | | | | | | [phone] | | | +--------+ + + + [...] | | | | | [place] | | | | | | [address] | | | | | | | | +--------+---------+ + + + documented as of this encounter Visit Diagnoses Not on filedocumented in this encounter"
--- OUTSIDE RECORDS SUMMARY | ~2019-09-25 | XMS | Encounter Summary ---
Demographics + + + | Address | [address] | | | [place] [address] | + + + | Home Phone [...] [place] | | | | | [address] | | + + + + + [...] | | | spondylolist | | [address] | | | | | hesis | | [place], | | | | | Spinal | | [place] [address] | | | | | stenosis, | | Phone: | | | | | lumbar | | [phone] | | | | | region, | | Fax: | | | | | without | | [phone] | | | | | neurogenic | [...] + + | 07/02/ | Hospital | [facility] | Frandy Teresa, | Degenerative disc | | 2013 - | Encounter | MED CTR SURGICAL | DO [address] | disease, lumbar | | | | [address] | [place] [address] [place] | (Primary Dx); | | 07/05/ | | [place] [address] | [phone] | Diabetes mellitus | | 2013 | | [phone] | | ([facility]); Disturbance | | | | | | [...] Stable for discharge to SNF. DISPOSITION: SNF ([facility]) DISCHARGE MEDICATIONS Medications prior [...] Take 15 mg by mouth nightl y. [place]-3 Fatty Acids (FISH OIL CONCENTRATE) 1000 MG [...] prophylaxis -DC plan: SNF versus home with [facility] any time. Maria T Storm RN - 07/04/2014 6:56 PM PDTFoley cath dc'd and MARI drain dc'd no problems. Chris Lynn PA-C - 07/04/2014 7:43 AM PDT [facility] PROGRESS NOTE Pt. Name/Age/: Cindy Arndt 58 y.o. 1955 Med. Record Number: [id number] Date of admission: 07/02/2014 Subjective: The patient [...] home medications. D/C plan: Home tomorrow with [facility]. D/c mari drain and riley cath today. 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 Patient Active Problem List Diagnosis LUMBAR DISC [...] signed by: Chris Nicole, 07/04/2014 7:45 [facility] Chris Lynn PA-C - 07/03/2014 7:13 AM PDT . [facility] PROGRESS NOTE Pt. Name/Age/: Cindy Arndt 58 y.o. 1955 Med. Record Number: [id number] Date of admission: 07/02/2014 Subjective: The patient [...] Electronically signed by: Chris Nicole, 07/03/2014 7:13 [facility] Ton Menjivar, KRIS - 07/03/2014 [...] [place] | | | | | | [address] | | | | | | | [...] + | [facility] | [address] | [place], [place] | [phone] | | [facility] | | [address] | | | - LABORATORY | | | | + + + + + | [facility] | [address] | [place], [place] | | | [facility] | | [address] | | | - LABORATORY | | [...] + | [facility] | [address] | [place] | [phone] | | [facility] | | [address] | | | - LABORATORY | | | | + + + + + | [facility] | [address] | [place] | | | [facility] | | [address] | | | - LABORATORY | | [...] + | [facility] | [address] | [place] | [phone] | | [facility] | | [address] | | | - LABORATORY | | | | + + + + + | [facility] | [address] | [place] | | | [facility] | | [address] | | | - LABORATORY | | [...] + | [facility] | [address] | [place], [place] | [phone] | | [facility] | | [address] | | | - LABORATORY | | | | + + + + + | [facility] | [address] | [place], [place] | | | [facility] | | [address] | | | - LABORATORY | | [...] + | [facility] | [address] | [place] | [phone] | | [facility] | | [address] | | | - LABORATORY | | | | + + + + + | [facility] | [address] | [place] | | | [facility] | | [address] | | | - LABORATORY | | [...] + | [facility] | [address] | [place] | [phone] | | [facility] | | [address] | | | - LABORATORY | | | | + + + + + | [facility] | [address] | [place] | | | [facility] | | [address] | | | - [...] [address] | [place] | [phone] | | [facility] | | [address] | | | - LABORATORY | | | | + + + + + | [facility] | [address] | [place] | | | [facility] | | [address] | | | - LABORATORY | | [...] + | [facility] | [address] | [place], [place] | [phone] | | [facility] | | [address] | | | - LABORATORY | | | | + + + + + | [facility] | [address] | [place], [place] | | | [facility] | | [address] | | | - LABORATORY | | [...] [address] | [place] | [phone] | | [facility] | | [address] | | | - LABORATORY | | | | + + + + + | [facility] | [address] | [place], [place] | | | [facility] | | [address] | | | - LABORATORY | | [...] | of hardware for posterior fusion from N3calcbuu S1 with interbody hardware at L5-S1. The [...] + + | Performing | Address | City/State[facility] | Phone Number | | Organization | | | | + +---------+ + + | MISCELLANEOUS LAB | | | [phone] | + +---------+ + + | MISCELANIOUS LAB | | | [phone] | + +---------+ + + POC Glucose [...] + | [facility] | [address] | [place], [place] | [phone] | | [facility] | | [address] | | | - LABORATORY | | | | + + + + + | [facility] | [address] | [place], [place] | | | [facility] | | [address] | | | - LABORATORY | | [...] + | [facility] | [address] | [place] | [phone] | | [facility] | | [address] | | | - LABORATORY | | | | + + + + + | [facility] | [address] | [place] | | | [facility] | | [address] | | | - LABORATORY | | [...] | | | POC | | | [facility] | | | | | | [...] + | [facility] | [address] | [place] | [phone] | | [facility] | | [address] | | | - LABORATORY | | | | + + + + + | [facility] | [address] | [place] | | | [facility] | | [address] | | | - LABORATORY | | [...] + | [facility] | [address] | [place], [place] | [phone] | | [facility] | | [address] | | | - LABORATORY | | | | + + + + + | [facility] | [address] | [place] | | | [facility] | | [address] | | | - LABORATORY | | [...] + | [facility] | [address] | [place] | [phone] | | [facility] | | [id number] | | | - LABORATORY | | | | + + + + + | [facility] | [address] | [place] | | | [facility] | | [address] | | | - LABORATORY | | [...] | [facility] | | [address] | | | - BLOOD BANK | [...] + +---------+ +---+---+---+ | morphine 5 mg/mL CONTRACT ADMINISTRATION COORDINATOR syringe | New Bag | 07/02/20 | [...] | | | | Dose(mg): 0, Starting [employer] ADMINISTRATION COORDINATOR | | | | | | | Dose(mg): 1, Incremental Increase | | | | | | | CONTRACT ADMINISTRATION COORDINATOR Dose(mg): 0.5, Maximum [employer] ADMINISTRATION COORDINATOR | | | | | | | [...]
--- OUTSIDE RECORDS SUMMARY | ~2019-09-25 | XMS | Encounter Summary ---
Demographics + + + | Address | [address] | | | [place] [address] | + + + | Home Phone [...] [place], [place] | | | | | [address] | | + + + + + Care Team Providers + +------+ + | Care Matcher Leather Parts Name | Role | Phone | + +------+ + PCP | Unavailable | + +------+ + Encounter Details +--------+ + + + + | Date | Type | Department | Care Team | Description | +--------+ + + + + | 12/27/ | Hospital | [facility] | | | | 1997 | Encounter | MED CTR EMERGENCY | | | | | | [address] | | | | | | [place] | | | | | | [address] | | | | | | [phone] | | | +--------+ + + + [...] | | | | | [place] | | | | | | [address] | | | | | | | | +--------+---------+ + + + documented as of this encounter Visit Diagnoses Not on filedocumented in this encounter"
--- OUTSIDE RECORDS SUMMARY | ~2019-09-25 | XMS | Encounter Summary ---
Demographics + + + | Address | [address] | | | [place] [address] | + + + | Home Phone [...] [facility] [place] | | | and [place] | + + + | Address | Unknown | + + + | Phone | Unavailable | + + + Support + + + + + | Name | Relationship | Address | Phone | + + + + + | Araceli Sibley | ECON | [place] | | | | | [address] | | + + + + + Care Team Providers + +------+ + | Care Ballet Dancer Name | Role | Phone | + [...] + + | 09/19/ | Telephone | [facility] | Ashley Chávez | Talia (Patient | | 2019 | | CARDIOLOGY [place] Abad, Sales Mgr | calling to be seen | | | | [address] | | ) | | | | [place] | | | | | | [address] | | | | | | [phone] | | | +--------+ + + + [...] [place] | | | | | | [address] | | | | | | | | +--------+---------+ + + + documented as of this encounter Visit Diagnoses Not on filedocumented in this encounter"
--- OUTSIDE RECORDS SUMMARY | ~2019-09-25 | XMS | Encounter Summary ---
Demographics + + + | Address | [address] | | | [place] [address] | + + + | Home Phone [...] [place], [place] | | | | | [address] | | + + + + + Care Team Providers + +------+ + | Care Agents' Records Clerk Name | Role | Phone | + +------+ + PCP | Unavailable | + +------+ + Encounter Details +--------+ + + + + | Date | Type | Department | Care Team | Description | +--------+ + + + + | 02/02/ | Hospital | [facility] | Serafin Bautista | | | 2012 | Encounter | MED CTR XRAY [address] | T, MD [address] | | | | | [place] | ST [place], [place] | | | | | [place] [address] | [address] | | | | | [phone] | | | +--------+ + + + [...] [place] | | | | | | [address] | | | | | | | [...] [facility] Diagnostic Imaging Department | [facility] | | [address] | [facility] | | PROCEDURE: EPIDURAL STEROID [...] Transcribed Date/Time: | | | 02/03/2012 18:45 Hrbp: <Electronically Signed | | | by Serafin Bautista MD> 02/14/12 0916 | | + + + + + | Procedure Note | + + | Juan, Rad Conversion - 11/30/2013 5:06 PM [facility] | | Diagnostic Imaging Department | | [address] | | | | | [...] | Transcribed Date/Time: 02/03/2012 18:45 | | Hrbp: LaMAHIN | | <Electronically Signed by Serafin [...]
--- OUTSIDE RECORDS SUMMARY | ~2019-09-25 | XMS | Encounter Summary ---
Demographics + + + | Address | [address] | | | [place] [address] | + + + | Home Phone [...] [place], [place] | | | | | [address] | | + + + + + Care Team Providers + +------+ + | Care Reinsurance Analyst Name | Role | Phone | + +------+ + PCP | Unavailable | + +------+ + Encounter Details +--------+ + + + + | Date | Type | Department | Care Team | Description | +--------+ + + + + | 06/07/ | Hospital | [facility] | | | | 1991 - | Encounter | MED CTR GENERIC OP | | | | | | CONV DEPT [address] | | | | 10/07/ | | [place], | | | | 1991 | | [place] [address] | | | | | | [phone] | | | +--------+ + + + [...] [place] | | | | | | [address] | | | | | | | | +--------+---------+ + + + documented as of this encounter Visit Diagnoses Not on filedocumented in this encounter"
--- OUTSIDE RECORDS SUMMARY | ~2019-09-25 | XMS | Encounter Summary ---
Demographics + + + | Address | [address] | | | [place] [address] | + + + | Home Phone [...] [place] | | | | | [address] | | + + + + + Care Team Providers + +------+ + | Care Machine Shop Instructor Name | Role | Phone | [...] + + | 01/02/ | Telephone | [facility] | Frandy Teresa, | Other (6m x-ray ) | | 2014 | | NEUROSURGERY [address] | DO [address] | | | | | [address] | [address] [place], [place] | | | | | [place], [place] | [phone] | | | | | [address] | | | | | | [phone] | | | +--------+ + + + [...] [place] | | | | | | [address] | | | | | | | | +--------+---------+ + + + documented as of this encounter Visit Diagnoses Not on filedocumented in this encounter"
--- OUTSIDE RECORDS SUMMARY | ~2019-09-25 | XMS | Encounter Summary ---
Demographics + + + | Address | [address] | | | [place] [address] | + + + | Home Phone [...] [place], [place] | | | | | [address] | | + + + + + Care Team Providers + +------+ + | Care Oxidation Engineer Name | Role | Phone | + +------+ + PCP | Unavailable | + +------+ + Encounter Details +--------+ + + + + | Date | Type | Department | Care Team | Description | +--------+ + + + + | 02/22/ | Hospital | [facility] | | | | 1996 | Encounter | MED CTR EMERGENCY | | | | | | [address] | | | | | | [place] | | | | | | [address] | | | | | | [phone] | | | +--------+ + + + [...] | | | | | [place] | | | | | | [address] | | | | | | | | +--------+---------+ + + + documented as of this encounter Visit Diagnoses Not on filedocumented in this encounter"
--- OUTSIDE RECORDS SUMMARY | ~2019-09-25 | XMS | Encounter Summary ---
Demographics + + + | Address | [address] | | | [place] [address] | + + + | Home Phone [...] [place] | | | | | [address] | | + + + + + Care Team Providers + +------+ + | Care Audiometrist Name | Role | Phone | + [...] + | 03/07/ | Telephone | [facility] | Katharine Cardona PA-C | Results | | 2014 | | [facility] | [address] [place] | | | | | [address] | [place] [address] | | | | | [place], [place] | [phone] | | | | | [address] | | | | | | [phone] | | | +--------+ + + + [...] [place] | | | | | | [address] | | | | | | | | +--------+---------+ + + + documented as of this encounter Visit Diagnoses Not on filedocumented in this encounter"
--- OUTSIDE RECORDS SUMMARY | ~2019-09-25 | XMS | Encounter Summary ---
Demographics + + + | Address | [address] | | | [place] [address] | + + + | Home Phone [...] [place] | | | | | [address] | | + + + + + Care Team Providers + +------+ + | Care Coffee Bar Attendant Name | Role | Phone | [...] + + | 03/03/ | Telephone | [facility] | Baudilio Newman | Other (Results) | | 2014 | | NEUROLOGY LAURIE | MD Pollo Need updated | | | | | [address], | address | | | | | [address] [place] | | | | | | [place] [address] | | | | | | [phone] | | | +--------+ + + + [...] [place] | | | | | | [address] | | | | | | | | +--------+---------+ + + + documented as of this encounter Visit Diagnoses Not on filedocumented in this encounter"
--- OUTSIDE RECORDS SUMMARY | ~2019-09-25 | XMS | Encounter Summary ---
Demographics + + + | Address | [address] | | | [place] [address] | + + + | Home Phone [...] [place] | | | | | [address] | | + + + + + Care Team Providers + +------+ + | Care Marine Painter Name | Role | Phone | [...] | | | spondylolist | | [address] | | | | | hesis | | [place], | | | | | Spinal | | [place] [address] | | | | | stenosis, | | Phone: | | | | | lumbar | | [phone] | | | | | region, | | Fax: | | | | | without | | [phone] | | | | | neurogenic | [...] + + | 07/02/ | Surgery | [facility] | Frandy Teresa, | MIS L5-S1 | | 2013 | | MED CTR OR INTRA OP | DO [address] | TRANSFORAMINAL | | | | [address] | [address] [place], [place] | LUMBAR INTERBODY | | | | [place] | [phone] | FUSION | | | | [address] | | | | | | [phone] | | | +--------+---------+ + + + [...] for discharge to SNF. DISPOSITION: SNF ([facility]) DISCHARGE MEDICATIONS Medications prior to [...] Take 15 mg by mouth nightl y. Jansen-3 Fatty Acids (FISH OIL CONCENTRATE) 1000 MG [...] + + + +---------+ + + | Jansen-3 Fatty | Take 1,000 mg by | [...] prophylaxis -DC plan: SNF versus home with [facility] any time. aria T Neff RN - 07/04/2014 6:56 PM PDTFoley cath dc'd and MARI drain dc'd no problems. Chris Lynn PA-C - 07/04/2014 7:43 AM PDT [facility] PROGRESS NOTE Pt. Name/Age/: Cindy Arndt 58 y.o. 1955 Med. Record Number: [id number] Date of admission: 07/02/2014 Subjective: The patient [...] home medications. D/C plan: Home tomorrow with [facility]. D/c mari drain and riley cath today. 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 Patient Active Problem List Diagnosis LUMBAR [...] Arndt 58 y.o. 1955 Med. Record Number: [id number] Date of admission: 07/02/2014 Subjective: The patient [...] Electronically signed by: Chris Nicole, 07/03/2014 7:13 [facility] Ton Johnston, KRIS - 07/03/2014 6:50 [...] | | | | | [place] | | | | | | [address] | | | | | | | [...] + | [facility] | [address] | [place], [place] | [phone] | | [facility] | | [address] | | | - LABORATORY | | | | + + + + + | [facility] | [address] | [place], [place] | | | [facility] | | [address] | | | - LABORATORY | | [...] + | [facility] | [address] | [place] | [phone] | | [facility] | | [address] | | | - LABORATORY | | | | + + + + + | [facility] | [address] | [place] | | | [facility] | | [address] | | | - LABORATORY | | [...] + | [facility] | [address] | [place], [place] | [phone] | | [facility] | | [address] | | | - LABORATORY | | | | + + + + + | [facility] | [address] | [place], [place] | | | [facility] | | [address] | | | - LABORATORY | | [...] + | [facility] | [address] | [place] | [phone] | | [facility] | | [address] | | | - LABORATORY | | | | + + + + + | [facility] | [address] | [place], [place] | | | [facility] | | [address] | | | - LABORATORY | | [...] + | [facility] | [address] | [place], [place] | [phone] | | [facility] | | [address] | | | - LABORATORY | | | | + + + + + | [facility] | [address] | [place] | | | [facility] | | [address] | | | - LABORATORY | | [...] + | [facility] | [address] | [place] | [phone] | | [facility] | | [address] | | | - LABORATORY | | | | + + + + + | [facility] | [address] | [place] | | | [facility] | | [address] | | | - LABORATORY | | [...] + | [facility] | [address] | [place] | [phone] | | [facility] | | [address] | | | - LABORATORY | | | | + + + + + | [facility] | [address] | [place] | | | [facility] | | [address] | | | - LABORATORY | | [...] + | [facility] | [address] | [place] | [phone] | | [facility] | | [address] | | | - LABORATORY | | | | + + + + + | [facility] | [address] | [place] | | | [facility] | | [address] | | | - LABORATORY | | [...] [address] | [place] | [phone] | | [facility] | | [address] | | | - LABORATORY | | | | + + + + + | [facility] | [address] | [place], [place] | | | [facility] | | [address] | | | - LABORATORY | | [...] | of hardware for posterior fusion from [id number] S1 with interbody hardware at L5-S1. The [...] + | MISCELLANEOUS LAB | | | [phone] | + +---------+ + + | MISCELANIOUS LAB | | | [phone] | + +---------+ + + POC Glucose [...] + | [facility] | [address] | [place] | [phone] | | [facility] | | [address] | | | - LABORATORY | | | | + + + + + | [facility] | [address] | [place] | | | [facility] | | [address] | | | - LABORATORY | | [...] + | [facility] | [address] | [place], [place] | [phone] | | [facility] | | [address] | | | - LABORATORY | | | | + + + + + | [facility] | [address] | [place] | | | [facility] | | [address] | | | - LABORATORY | | [...] | | | POC | | | [facility] | | | | | [...] + | [facility] | [address] | [place] | [phone] | | [facility] | | [address] | | | - LABORATORY | | | | + + + + + | [facility] | [address] | [place] | | | [facility] | | [address] | | | - LABORATORY | | [...] + | [facility] | [address] | [place] | [phone] | | [facility] | | [address] | | | - LABORATORY | | | | + + + + + | [facility] | [address] | [place] | | | [facility] | | [address] | | | - LABORATORY | | [...] + | [facility] | [address] | [place], [place] | [phone] | | [facility] | | [address] | | | - LABORATORY | | | | + + + + + | [facility] | [address] | [place], [place] | | | [facility] | | [address] | | | - LABORATORY | | [...] ST. | [address] | [place] | | | [facility] | | [address] | | | - BLOOD BANK | [...] mLs | | Surgical | | 1:200,000 0.25-1:488327 % | | 14 12:42 | | [...]
--- OUTSIDE RECORDS SUMMARY | ~2019-09-25 | XMS | Encounter Summary ---
Demographics + + + | Address | [address] | | | [place] [address] | + + + | Home Phone [...] [place] | | | | | [address] | | + + + + + Care Team Providers + +------+ + | Care Blueprint Reader Name | Role | Phone | + +------+ + | Natalee Andersen NP | PCP | | + +------+ + Encounter Details +--------+---------+ + + + | Date | Type | Department | Care Team | Description | +--------+---------+ + + + | 06/25/ | Surgery | [facility] | Frandy Teresa, | Canceled | | 2013 | | MED CTR OR INTRA OP | DO [address] | PROCEDURE NOT | | | | [address] | [address] [place], [place] | PERFORMED | | | | [place], [place] | [address] | | | | | [address] | | | | | | [phone] | | | +--------+---------+ + + + [...] + + + +---------+ + + | Galatia-3 Fatty | Take 1,000 mg by | [...] | | | | | [place], [place] | | | | | | [id number] | | | | | | | [...] | | MEDICAL | | | | mL/min/1.97n7Fdzv than | | CENTER - | | [...] + | [facility] | [address] | [place] | [phone] | | [facility] | | [address] | | | - LABORATORY | | | | + + + + + | [facility] | [address] | [place] | | | [facility] | | [address] | | | - LABORATORY | | [...] + | [facility] | [address] | [place] | [phone] | | [facility] | | [address] | | | - LABORATORY | | | | + + + + + | [facility] | [address] | [place] | | | [facility] | | [address] | | | - LABORATORY | | [...] [address] | [place] | [phone] | | [facility] | | [address] | | | - LABORATORY | | | | + + + + + | [facility] | [address] | [place], [place] | | | [facility] | | [address] | | | - LABORATORY | | [...] | | [facility] | | [address] | | | - BLOOD BANK | [...] + | [facility] | [address] | [place], [place] | [phone] | | [facility] | | [address] | | | - LABORATORY | | | | + + + + + | [facility] | [address] | [place], [place] | | | [facility] | | [address] | | | - LABORATORY | | [...]
--- OUTSIDE RECORDS SUMMARY | ~2019-09-25 | XMS | Encounter Summary ---
Demographics + + + | Address | [address] | | | [place] [address] | + + + | Home Phone [...] [place], [place] | | | | | [address] | | + + + + + Care Team Providers + +------+ + | Care Commercial Agent Name | Role | Phone | + +------+ + PCP | Unavailable | + +------+ + Encounter Details +--------+ + + + + | Date | Type | Department | Care Team | Description | +--------+ + + + + | 02/16/ | Hospital | [facility] | | | | 1994 | Encounter | MED CTR LABORATORY | | | | | | [address] | | | | | | [place] | | | | | | [address] | | | | | | [phone] | | | +--------+ + + + [...] | | | | | [place] | | | | | | [address] | | | | | | | | +--------+---------+ + + + documented as of this encounter Visit Diagnoses Not on filedocumented in this encounter"
--- OUTSIDE RECORDS SUMMARY | ~2019-09-25 | XMS | Encounter Summary ---
Demographics + + + | Address | [address] | | | [place] [address] | + + + | Home Phone [...] [place] | | | | | [address] | | + + + + + Care Team Providers + +------+ + | Care String Laster Name | Role | Phone | [...] [address] | [address] [place], [place] | | | | | [place], [place] | [address] | | | | | [address] | | | | | | [phone] | | | +--------+ + + + [...] [place] | | | | | | [address] | | | | | | | | +--------+---------+ + + + documented as of this encounter Visit Diagnoses Not on filedocumented in this encounter"
--- OUTSIDE RECORDS SUMMARY | ~2019-09-25 | XMS | Encounter Summary ---
Demographics + + + | Address | [address] | | | [place] [address] | + + + | Home Phone [...] [place] | | | | | [address] | | + + + + + Care Team Providers + +------+ + | Care Hand Cell Tuber Name | Role | Phone | + [...] + | 08/26/ | Refill | [facility] | Frandy Teresa, | Medication Refill | | 2013 | | NEUROSURGERY [address] | DO [address] | | | | | [address] | [address] [place], [place] | | | | | [place], [place] | [address] | | | | | [address] | | | | | | [phone] | | | +--------+--------+ + + + [...] | | | | | [place] | | | | | | [address] | | | | | | | | +--------+---------+ + + + documented as of this encounter Visit Diagnoses Not on filedocumented in this encounter"
--- OUTSIDE RECORDS SUMMARY | ~2019-09-25 | XMS | Encounter Summary ---
Demographics + + + | Address | [address] | | | [place] [address] | + + + | Home Phone [...] [place] | | | | | [address] | | + + + + + Care Team Providers + +------+ + | Care Baby Formula Worker Name | Role | Phone | [...] + + | 07/24/ | Telephone | [facility] | Ashley Chávez | Other (Patient is | | 2019 | | CARDIOLOGY [place] Abad, Printing Machinist | worried about paying | | | | [address] | | for monitor. ) | | | | [place] | | | | | | [address] | | | | | | [phone] | | | +--------+ + + + [...] [place] | | | | | | [address] | | | | | | | | +--------+---------+ + + + documented as of this encounter Visit Diagnoses Not on filedocumented in this encounter"
--- OUTSIDE RECORDS SUMMARY | ~2019-09-25 | XMS | Encounter Summary ---
Demographics + + + | Address | [address] | | | [place] [address] | + + + | Home Phone [...] [place], [place] | | | | | [address] | | + + + + + Care Team Providers + +------+ + | Care Convention Worker Name | Role | Phone | [...] | SR | | | | | [phone] | | | +--------+ + + + [...] [place] | | | | | | [address] | | | | | | | | +--------+---------+ + + + documented as of this encounter Visit Diagnoses Not on filedocumented in this encounter
--- OUTSIDE RECORDS SUMMARY | ~2019-09-25 | XMS | Encounter Summary ---
Demographics + + + | Address | [address] | | | [place] [address] | + + + | Home Phone [...] [place] | | | | | [address] | | + + + + + Care Team Providers + +------+ + | Care Call Center Recruiter Name | Role | Phone | [...] | [address] [place] | [place], [address] | | | | | [address] [place], [place] | [place], [place] | | | | | [address] | [address] | | | | | [phone] | | | +--------+ + + + [...] | | | | | [place] | | | | | | [address] | | | | | | | | +--------+---------+ + + + documented as of this encounter Visit Diagnoses Not on filedocumented in this encounter"
--- OUTSIDE RECORDS SUMMARY | ~2019-09-25 | XMS | Encounter Summary ---
Demographics + + + | Address | [address] | | | [place] [address] | + + + | Home Phone [...] [place], [place] | | | | | [address] | | + + + + + Care Team Providers + +------+ + | Care Laboratory Animal Care Veterinarian Name | Role | Phone | [...] [place] | | | | | | [address] | | | | | | [phone] | | | +--------+ + + + [...] | | | | | [place] | | | | | | [address] | | | | | | | | +--------+---------+ + + + documented as of this encounter Visit Diagnoses Not on filedocumented in this encounter"
--- OUTSIDE RECORDS SUMMARY | ~2019-09-25 | XMS | Encounter Summary ---
Demographics + + + | Address | [address] | | | [place] [address] | + + + | Home Phone [...] [place] | | | | | [address] | | + + + + + Care Team Providers + +------+ + | Care Sugar Cane Grower Name | Role | Phone | [...] + | 08/24/ | Documentati | [facility] | Katharine Moncada, | Other (urgent | | 2019 | on | CARDIOLOGY [place] | Technologist | report) | | | | [address] | | | | | | [place] | | | | | | [address] | | | | | | [phone] | | | +--------+ + + + [...] [place] | | | | | | [address] | | | | | | | | +--------+---------+ + + + documented as of this encounter Visit Diagnoses Not on filedocumented in this encounter"
--- OUTSIDE RECORDS SUMMARY | ~2019-09-25 | XMS | Encounter Summary ---
Demographics + + + | Address | [address] | | | [place] [address] | + + + | Home Phone [...] [place], [place] | | | | | [address] | | + + + + + Care Team Providers + +------+ + | Care Rhit Name | Role | Phone | + +------+ + PCP | Unavailable | + +------+ + Encounter Details +--------+ + + + + | Date | Type | Department | Care Team | Description | +--------+ + + + + | 10/29/ | Hospital | [facility] | | | | 1994 | Encounter | MED CTR LABORATORY | | | | | | [address] | | | | | | [place] | | | | | | [address] | | | | | | [phone] | | | +--------+ + + + [...] | | | | | [place] | | | | | | [address] | | | | | | | | +--------+---------+ + + + documented as of this encounter Visit Diagnoses Not on filedocumented in this encounter"
--- OUTSIDE RECORDS SUMMARY | ~2019-09-25 | XMS | Encounter Summary ---
Demographics + + + | Address | [address] | | | [place] [address] | + + + | Home Phone [...] [place] | | | | | [address] | | + + + + + Care Team Providers + +------+ + | Care Sales Correspondence Clerk Name | Role | Phone | [...] + + | 08/30/ | Telephone | [facility] | Ashley Chávez | Other (Patient wants | | 2019 | | CARDIOLOGY [place] | Pollo, Fashion Director | to take monitor | | | | [address] | | off. ) | | | | [address] | | | | | | [place] | | | | | | [address] | | | | | | [phone] | | | +--------+ + + + [...] [place] | | | | | | [address] | | | | | | | | +--------+---------+ + + + documented as of this encounter Visit Diagnoses Not on filedocumented in this encounter"
--- OUTSIDE RECORDS SUMMARY | ~2019-09-25 | XMS | Encounter Summary ---
Demographics + + + | Address | [address] | | | [place] [address] | + + + | Home Phone [...] [place] | | | | | [address] | | + + + + + Care Team Providers + +------+ + | Care Summer School Coordinator Name | Role | Phone | + +------+ + | Adriano Patrick MD | PCP | | + +------+ + Encounter Details +--------+ + + + + | Date | Type | Department | Care Team | Description | +--------+ + + + + | 06/10/ | Abstract | [facility] | Thierry Fry | | | 2014 | | MEDICINE [address] | MD Lisa [address] | | | | | Street [place] | [address] | | | | | [place] [address] | [address] | | | | | [phone] | | | +--------+ + + + [...] | | | | | [place] | | | | | | [address] | | | | | | | [...]
--- OUTSIDE RECORDS SUMMARY | ~2019-09-25 | XMS | Encounter Summary ---
Demographics + + + | Address | [address] | | | [place] [address] | + + + | Home Phone [...] [place] | | | | | [address] | | + + + + + Care Team Providers + +------+ + | Care Auto Vinyl Top Installer Name | Role | Phone | [...] [address] | [address] [place], [place] | | | | | [place], [place] | [id number] | | | | | [address] | | | | | | [phone] | | | +--------+ + + + [...] | | | | | [place] | | | | | | [address] | | | | | | | | +--------+---------+ + + + documented as of this encounter Visit Diagnoses Not on filedocumented in this encounter"
--- OUTSIDE RECORDS SUMMARY | ~2019-09-25 | XMS | Encounter Summary ---
Demographics + + + | Address | [address] | | | [place] [address] | + + + | Home Phone [...] [place] | | | | | [address] | | + + + + + Care Team Providers + +------+ + | Care Political Science Research Assistant Name | Role | Phone [...] + | 08/09/ | Documentati | [facility] | Katharine Moncada, | Other (end of study) | | 2019 | on | [facility] | Technologist | | | | | [address] | | | | | | [place], [place] | | | | | | [address] | | | | | | [phone] | | | +--------+ + + + [...] Technologist - 08/09/2019 11:59 PM PDT Cardiac College Physics Instructor Date of Event Monitor: 08/09/19 Referring Physician: [...] [place] | | | | | | [address] | | | | | | | | +--------+---------+ + + + documented as of this encounter Visit Diagnoses Not on filedocumented in this encounter"
--- OUTSIDE RECORDS SUMMARY | ~2019-09-25 | XMS | Encounter Summary ---
Demographics + + + | Address | [address] | | | [place] [address] | + + + | Home Phone [...] [place] | | | | | [address] | | + + + + + Care Team Providers + +------+ + | Care Bus Inspector Name | Role | Phone | + +------+ + | Natalee Andersen NP | PCP | | + +------+ + Encounter Details +--------+ + + + + | Date | Type | Department | Care Team | Description | +--------+ + + + + | 06/26/ | Hospital | [facility] | Heather Cordero PT | | | 2014 | Encounter | MED CTR ACUTE | [address] | | | | | PHYSICAL THERAPY | [place] | | | | | [address] | [address] | | | | | [place] [address] | | | | | | [phone] | | | +--------+ + + + [...] + + + +---------+ + + | Kirkwood-3 Fatty | Take 1,000 mg by | [...] [place] | | | | | | [address] | | | | | | | | +--------+---------+ + + + documented as of this encounter Visit Diagnoses Not on filedocumented in this encounter"
--- OUTSIDE RECORDS SUMMARY | ~2019-09-25 | XMS | Encounter Summary ---
Demographics + + + | Address | [address] | | | [place] [address] | + + + | Home Phone [...] [place] | | | | | [address] | | + + + + + Care Team Providers + +------+ + | Care Hearing Healthcare Practitioner Name | Role | Phone | [...] [place] | | | | | | [address] | | | | | | [phone] | | | +--------+ + + + [...] [place] | | | | | | [address] | | | | | | | | +--------+---------+ + + + documented as of this encounter Visit Diagnoses Not on filedocumented in this encounter"
--- OUTSIDE RECORDS SUMMARY | ~2019-09-25 | XMS | Encounter Summary ---
Demographics + + + | Address | [address] | | | [place] [address] | + + + | Home Phone [...] [place], [place] | | | | | [address] | | + + + + + Care Team Providers + +------+ + | Care Wire Stockkeeper Name | Role | Phone | + +------+ + PCP | Unavailable | + +------+ + Encounter Details +--------+ + + + + | Date | Type | Department | Care Team | Description | +--------+ + + + + | 03/13/ | Hospital | [facility] | | | | 1996 - | Encounter | MED CTR GENERIC OP | | | | | | CONV DEPT [address] | | | | 03/21/ | | [place], | | | | 1996 | | [place] [address] | | | | | | [phone] | | | +--------+ + + + [...] [place] | | | | | | [address] | | | | | | | | +--------+---------+ + + + documented as of this encounter Visit Diagnoses Not on filedocumented in this encounter"
--- OUTSIDE RECORDS SUMMARY | ~2019-09-25 | XMS | Encounter Summary ---
Demographics + + + | Address | [address] | | | [place] [address] | + + + | Home Phone [...] [place] | | | | | [address] | | + + + + + Care Team Providers + +------+ + | Care Small Arms Artillery Repairer Name | Role | Phone | [...] + | 07/19/ | Telephone | [facility] | Frandy Teresa, | Appointment | | 2013 | | NEUROSURGERY [address] | DO [address] | | | | | [address] | [address] [place], [place] | | | | | [place], [place] | [address] | | | | | [address] | | | | | | [phone] | | | +--------+ + + + [...] [place] | | | | | | [address] | | | | | | | | +--------+---------+ + + + documented as of this encounter Visit Diagnoses Not on filedocumented in this encounter"
--- OUTSIDE RECORDS SUMMARY | ~2019-09-25 | XMS | Encounter Summary ---
Demographics + + + | Address | [address] | | | [place] [address] | + + + | Home Phone [...] [place] | | | | | [address] | | + + + + + Care Team Providers + +------+ + | Care Area Operations Manager Name | Role | Phone [...] + + | 03/26/ | Telephone | [facility] | Thierry Fry | Medication Prior | | 2015 | | MEDICINE [facility] Daniel | MD Lisa [address] | Authorization | | | | [facility] | [facility] | (Dexilant 60Mg) | | | | [place] [address] | [address] | | | | | [phone] | | | +--------+ + + + [...] [place] | | | | | | [address] | | | | | | | | +--------+---------+ + + + documented as of this encounter Visit Diagnoses Not on filedocumented in this encounter"
--- OUTSIDE RECORDS SUMMARY | ~2019-09-25 | XMS | Encounter Summary ---
Demographics + + + | Address | [address] | | | [place] [address] | + + + | Home Phone [...] [place], [place] | | | | | [address] | | + + + + + Care Team Providers + +------+ + | Care Philosophy Lecturer Name | Role | Phone | + +------+ + PCP | Unavailable | + +------+ + Encounter Details +--------+ + + + + | Date | Type | Department | Care Team | Description | +--------+ + + + + | 02/24/ | Hospital | [facility] | | | | 1997 - | Encounter | MED CTR GENERIC PSY | | | | | | CONV DEPT [address] | | | | 02/26/ | | [place], | | | | 1997 | | [place] [address] | | | | | | [phone] | | | +--------+ + + + [...] [place] | | | | | | [address] | | | | | | | | +--------+---------+ + + + documented as of this encounter Visit Diagnoses Not on filedocumented in this encounter"
--- OUTSIDE RECORDS SUMMARY | ~2019-09-25 | XMS | Clinical Summary ---
Demographics + + + | Address | [address] | | | [place] [address] | + + + | Home Phone [...] [place] | | | | | [address] | | + + + + + Care Team Providers + +------+ + | Care Wire Machine Cutter Name | Role | Phone [...] | | Activ | | (VITAMIN D-3) 235[address] | mouth Once a week. | | [...] | | | | | ([facility]) | | | | [...] | | | | e | | ([employer] VERIO FLEX | | | | | [...] | | 2019 | | | D, Director Learning Services | calling to be seen | | [...] | | 2018 | | | D, Director Learning Services | to take monitor | | | | | | off. ) | +--------+ + + + + | 08/28/ | Telephone | Cardiology | Ashley Chávez | Other (Patient has | | 2018 | | | D, Director Learning Services | questions about | | | | [...] 08/16/ | Telephone | Cardiology | Ashley Cháevz | Other (Called to | 2018 | | | D, Director Learning Services | tell patient what | | | [...] | | 2018 | | | D, Director Learning Services | anxious about urgent | | | [...] | | 2018 | | | Pollo Director Learning Services | about coverage. ) | +--------+ + + + + | 07/30/ | Telephone | Cardiology | Ashley Chávez | Other (Patient | | 2019 | | | D, Director Learning Services | concerns ) | +--------+ + + + + | 07/24/ | Telephone | Cardiology | Ashley Chávez | Other (Patient is | | 2018 | | | D, Director Learning Services | worried about paying | | | | | | for monitor. ) | +--------+ + + + + | 07/19/ | Office | Cardiology | Desiree Peterson DO | Syncope, unspecified | | 2019 | Visit | | | syncope type | | | | | | (Primary Dx); | | | | | | Essential | | | | | | hypertension; | | | | | | Irregular heartbeat | +--------+ + + + + | 06/28/ | Telephone | Cardiology | Ashley Chávez | Other (Patient | | 2018 | | | D, Director Learning Services | called to cancel her | | [...] | | | | | [place], [place] | | | | | | [address] | | | | | | | [...] | [employer] - | | 04/02/ | [id number] | | 5ccImplanted: Qty: 1 on | | Spine | MEDT | | 2019 | | | 07/02/2014 by Frandy Teresa | | Lumbar | | | | /[id number] | | DO Ronak at [facility] | | | | | | 6-020 | | [facility] | | | | | | / | + +------+--------+ +--------+--------+--------+ | Graft Infuse Bone Kit Xxs - | | N/A: | SOFAMOR | | 01/21/ | [id number] | | [id number]: Qty: 1 on | | Spine | DANEK - DIV | | 2014 | 0 / | | 07/02/2014 by Frandy Teresa | | Lumbar | [employer] | | | /[id number] | | A, DO at [facility] | | | - SFDK | | | 06AAH | | [facility] | | | | | | | + +------+--------+ +--------+--------+--------+ | Imp Spn Spcr Cpstn 8x26mm - | | N/A: | SOFAMOR | | 01/11/ | [id number] | | [id number]: Qty: 1 on | | Spine | DANEK - DIV | | 2021 | 6 / | | 07/02/2014 by Frandy Teresa | | Lumbar | [employer] | | | /[id number] | | A, DO at [facility] | | | - SFDK | | | 928 | | [facility] | | | | | | | + +------+--------+ +--------+--------+--------+ | Set Scrw Ns G5 Brk Off Ti | | N/A: | SOFAMOR | | | [id number] | | 4.75 - [id number]: | | Spine | DANEK - DIV | | | 0 / / | | Qty: 4 on 07/02/2014 by | | Lumbar | [employer] | | | | | Frandy Teresa DO at [facility] | | | - [facility] | | | | | [facility] | | | | | | | | [place] | | | | | | | + +------+--------+ +--------+--------+--------+ | RodImplanted: Qty: 1 on | | N/A: | | | | [id number] | | 07/02/2014 by Frandy Teresa | | Spine | | | | 540 / | | DO Ronak at [facility] | | Lumbar | | | | / | | [facility] | | | | | | | + +------+--------+ +--------+--------+--------+ | RodImplanted: Qty: 1 on | | N/A: | MEDTROL - | | | [id number] | | 07/02/2014 by Frandy Teresa | | Spine | MDTR | | | 545 / | | DO Ronak at [facility] | | Lumbar | | | | / | | [facility] | | | | | | | + +------+--------+ +--------+--------+--------+ | Screw 7.5x50mm Sextant - | | N/A: | [employer] - | | | [id number] | | [id number]: Qty: 1 on | | Spine | MEDT | | | [id number] | | 07/02/2014 by Frandy Teresa | | Lumbar | | | | / / | | DO Ronak at [facility] | | | | | | | | [facility] | | | | | | | + +------+--------+ +--------+--------+--------+ | Cannulated ScrewImplanted: | | N/A: | MEDTROL - | | | [id number] | | Qty: 1 on 07/02/2014 by | | Spine | MDTR | | | [id number] | | Frandy Teresa DO at [facility] | | Lumbar | | | | / / | | [facility] | | | | | | | | CENTER | | | | | | | + +------+--------+ +--------+--------+--------+ | Cannulated ScrewImplanted: | | N/A: | MEDTR[employer]IC - | | | [id number] | | Qty: 1 on 07/02/2014 by | | Spine | MEDT | | | [id number] | | Frandy Teresa DO at [facility] | | Lumbar | | | | / / | | [facility] | | | | | [...] +--------+ +---------+--------+ | MEDICARE | MEDICA | [id number] | 02/22/20 | [phone] | | Medica | | | RE | | 09-Pre | 5 | | re | | | PART A | | sent | | | | | | AND B | | | | | | + +--------+ +--------+ +---------+--------+ | MEDICARE | MEDICA | [id number] | 02/22/20 | [phone] | | Medica [...] | | al/Fam | | 1954 | [phone] | [address] [place], [place] | | | [place] | | | 8 (Home) | [address] | + +--------+ +--------+ + + | Cindy Arndt | Person | Self | [birth year] | [address] | | | al/Fam | | 1954 | [phone] | [address] [place], [place] | | | [place] | | | 8 (Home) | [address] | + +--------+ +--------+ + + Advance Directives + + + + + | Type | Date Recorded | 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
--- OUTSIDE RECORDS SUMMARY | ~2019-09-25 | XMS | Encounter Summary ---
Demographics + + + | Address | [address] | | | [place] [address] | + + + | Home Phone [...] [place], [place] | | | | | [address] | | + + + + + Care Team Providers + +------+ + | Care Field Research Assistant Name | Role | Phone | + +------+ + PCP | Unavailable | + +------+ + Encounter Details +--------+ + + + + | Date | Type | Department | Care Team | Description | +--------+ + + + + | 08/21/ | Hospital | [facility] | | | | 1996 | Encounter | MED CTR LABORATORY | | | | | | [address] | | | | | | [place] | | | | | | [address] | | | | | | [phone] | | | +--------+ + + + [...] | | | | | [place] | | | | | | [address] | | | | | | | | +--------+---------+ + + + documented as of this encounter Visit Diagnoses Not on filedocumented in this encounter"
--- OUTSIDE RECORDS SUMMARY | ~2019-09-25 | XMS | Encounter Summary ---
Demographics + + + | Address | [address] | | | [place] [address] | + + + | Home Phone [...] [place], [place] | | | | | [address] | | + + + + + Care Team Providers + +------+ + | Care Inflated Ball Molder Name | Role | Phone | [...] | | | | | [place] [address] | | | | | | [phone] | | | +--------+ + + + [...] | | | | | [place] | | | | | | [address] | | | | | | | | +--------+---------+ + + + documented as of this encounter Visit Diagnoses Not on filedocumented in this encounter"
--- OUTSIDE RECORDS SUMMARY | ~2019-09-25 | XMS | Encounter Summary ---
Demographics + + + | Address | [address] | | | [place] [address] | + + + | Home Phone [...] [place] | | | | | [address] | | + + + + + Care Team Providers + +------+ + | Care Senior It Engineer Name | Role | Phone | [...] [address] | [address] [place], [place] | (Primary Dx) | | | | [place], [place] | [address] | | | | | [address] | | | | | | [phone] | | | +--------+ + + + [...] [place] | | | | | | [address] | | | | | | | [...] + | MISCELLANEOUS LAB | | | [phone] | + +---------+ + + | MISCELANIOUS LAB | | | [phone] | + +---------+ + + documented in this encounter Visit Diagnoses + + | Diagnosis | + + | Status post lumbar spinal fusion - Primary Arthrodesis status | + + documented in this encounter"
--- OUTSIDE RECORDS SUMMARY | ~2019-09-25 | XMS | Encounter Summary ---
Demographics + + + | Address | [address] | | | [place] [address] | + + + | Home Phone [...] [place] | | | | | [address] | | + + + + + [...] + | 06/20/ | Telephone | [facility] | Frandy Teresa, | Other (surgery | | 2013 | | NEUROSURGERY [address] | DO [address] | reminder ) | | | | [address] | [address] [place], [place] | | | | | [place], [place] | [address] | | | | | [address] | | | | | | [phone] | | | +--------+ + + + [...] | | | | | [place] | | | | | | [address] | | | | | | | | +--------+---------+ + + + documented as of this encounter Visit Diagnoses Not on filedocumented in this encounter"
--- OUTSIDE RECORDS SUMMARY | ~2019-09-25 | XMS | Encounter Summary ---
Demographics + + + | Address | [address] | | | [place] [address] | + + + | Home Phone [...] [place], [place] | | | | | [address] | | + + + + + Care Team Providers + +------+ + | Care Data Warehousing Manager Name | Role | Phone | [...] [place] | | | | | | [address] | | | | | | [phone] | | | +--------+ + + + [...] | | | | | [place] | | | | | | [address] | | | | | | | | +--------+---------+ + + + documented as of this encounter Visit Diagnoses Not on filedocumented in this encounter"
--- OUTSIDE RECORDS SUMMARY | ~2019-09-25 | XMS | Encounter Summary ---
Demographics + + + | Address | [address] | | | [place] [address] | + + + | Home Phone [...] [place] | | | | | [address] | | + + + + + Care Team Providers + +------+ + | Care Aviation Safety Technician Name | Role | Phone [...] | | | | | mellitus, | [address] | [place] | | | | | controlled | Phone: | [address] | | | | | (HCC) | [phone] | Phone: | | | | | History of | Fax: | [phone] | | | | | gastric | [phone] | Fax: | | | | | restrictive | | [phone] | | | | | surgery | [...] Required | | hypertension | [address] | | | | | Lumbar | [address]VE [place] | [address] | | | | | radiculopath | [place], [place] | AVE | | | | | y Type 2 | [address] | [place] | | | | | diabetes | Phone: | [address] | | | | | mellitus, | [phone] | Phone: | | | | | controlled | Fax: | [phone] | | | | | (HCC) | [phone] | Fax: | | | | | Obesity, | | [phone] | | | | | Class III, [...] | | FORTUNATO & Katharine BUCIO in [place]. | + + + | Other | [...] MEDICINE [address] | [address] [facility] | to acquired atrophy | | | | [address] [place] | [place] [address] | of thyroid (Primary | | | | [place] [address] | [phone] | Dx); Essential | | | | [phone] | | hypertension; Iron | | | [...] | | | | | ([facility]); Environmental | | | | | [...] | | | | | ([facility]); Preventative | | | | | [...] t be different from the original. Ask Smeet if they think it might be helpful [...] Cont your meds as prescribed. F/U with Smeet as scheduled Neuropathy Continue gabapentin. May consider increase if pain is not controlled. May benefit from switching from Paxil to one of the SNRIs or TCAs for analgesic effects, holly manju, she is doing so well on her current regimen it may not be worth making any changes an d find alternate ways to deal with the pain. Would be worth discussing with Smeet Psych Back Pain Will refer to water therapy (aqua fitness) at [facility] as request ed. ROGERS on [...] 4. Schizoaffective disorder, bipolar type ([facility]) 5. Neuropathy Vitamin B-12 6. BACK PAIN, LUMBAR, WITH RADICULOPATHY Ambulatory referral to Physical Therapy 7. ROGERS on CPAP 8. Stroke ([facility]) 9. Environmental and seasonal allergies fluticasone (FLONASE) 50 mcg/nasal spray 10. Gastroesophageal reflux disease without esophagitis dexlansoprazole (DEXILANT) 60 mg D R capsule 11. History of gastric restrictive surgery Vitamin D, 25-Hydroxy Nutrition Services - External - AMB Referral 12. Obesity, Class III, BMI 40-49.9 (morbid obesity) ([facility]) Ambulatory referral to Physical Therapy Nutrition Services - External - AMB Referral 13. Type 2 diabetes mellitus, controlled ([facility]) Ambulatory referral to Physical Therapy Nutrition [...] Cont your meds as prescribed. F/U with Smeet as scheduled Neuropathy Continue gabapentin. May consider [...] the pain. Would be worth discussing with Smeet professional. Back Pain Will refer to water therapy (aqua fitness) at [facility] as request ed. Cont home exercise, [...] plan. The above note was dictated using [employer] voice recognition software. It may have not been proofread in entirety. Minor errors in grammar may occur. CHIEF COMPLAINT Chief Complaint Patient presents with Establish Care Presents to establish care. Former patient of [facility] in [place]. Other Possible stroke January 2015. Is now [...] auditory, at 36. 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 She is now very well controlled on Saphris, Depakote, and Paxi l. She is followed by [facility] [place] in [place]. She has DM2 that is well controlled [...] worked up by steve rowe, Dr [place], [place]. More recently, she presented to ED with [...] Laterality: N/A; Surgeon: Frandy castellanos DO; Location: [facility] MAIN OR SOCIAL HISTORY History [...] mg by mouth Daily. Cholecalciferol (VITAMIN D-3) 18076 units CAPS Oral Take 50,000 Units by [...] Oral Take 10 mg by mouth nightly. [place]-3 Fatty Acids (FISH OIL CONCENTRATE) 1000 MG [...] 10/11/ | Office | Cardiology | Desiree Petreson DO | | | 2019 | Visit | | [address] | | | | | | [place] | | | | | | [id number] | | | | | | | [...] | | | | controlled ([facility]) | | | | | | Obesity, Class III, | | | | | | BMI 40-49.9 (morbid | | | | | | obesity) ([facility]) | | + + +--------+ + + | Nutrition Services - | Outpatient | Routin | Iron deficiency | Ordered: 03/06/2015 | | External - AMB | Referral | e | anemia Type 2 | | | Referral | | | diabetes mellitus, | | | | | | controlled ([facility]) | | | | | | History of gastric | | | | | | restrictive surgery | | | | | | Obesity, Class III, | | | | | | BMI 40-49.9 (morbid | | | | | | obesity) ([facility]) | | + + +--------+ + [...] 12 | 7 - 18 mg/dL | [facility] | | | | | | [facility] | | | | | | [facility] | | | | | | [facility] - | | | | | | LABORATORY | | + + + + + + | Creatinine | 0.66 | 0.60 - 1.30 | [facility] | | | | | mg/dL | [facility] | | | | | | [facility]ICAL | | | | | | CENTER - | | | | | | LABORATORY | | + + + + + + | eGFR if not | >60Comment: GLOMERULAR | >=60 | [facility] | | | | FILTRATION | mL/min/1.73m2 | [facility] | | | INDIAN | RATE,ESTIMATED | | MEDICAL | | | | mL/min/1.69e5Gnwg than | | CENTER - | | [...] [address] | [place] | [phone] | | [facility] | | [address] | | | - LABORATORY | | [...] Type 2 diabetes mellitus, controlled ([facility]) Type II or unspecified type diabetes | | mellitus without mention of complication, not stated as uncontrolled | + + | Preventative health care Routine general medical examination at a health care | | facility | + + documented in this encounter
--- OUTSIDE RECORDS SUMMARY | ~2019-09-25 | XMS | Encounter Summary ---
Demographics + + + | Address | [address] | | | [place] [address] | + + + | Home Phone [...] [place] | | | | | [address] | | + + + + + Care Team Providers + +------+ + | Care Kersey Department Supervisor Name | Role | Phone [...] | Services | ogy | Epigastric | [facility], | Tyrese Shelley MD | | | Required | | abdominal | [place], | [address], | | | | | pain GERD | MANAGER GARAGE [address] | [address] | | | | | (gastroesoph | [place], [address] | [place], | | | | | ageal reflux | [address] [place] | [place] [address] | | | | | disease) | [place], [place] | Phone: | | | | | Fatty liver | [address] | [phone] | | | | | DM | Phone: | Fax: | | | | | (diabetes | [phone] | [phone] | | | | | mellitus) | Fax: | | | | | | (HCC) | [phone] | | +--------+ + + + + + Reason for Visit + + + | Reason | Comments | + + + | Gastroesophageal | epigastric pain | | Reflux | | + + + Encounter Details +--------+---------+ + + + | Date | Type | Department | Care Team | Description | +--------+---------+ + + + | 03/06/ | Office | [facility] | [facility], | Epigastric abdominal | | 2012 | Visit | GASTROENTEROLOGY | FORTUNATO Thomas [address] | pain (Primary Dx); | | | | [address] | [place], [address] | GERD | | | | [address] [place], [place] | [place], [place] | (gastroesophageal | | | | [address] | [address] | reflux disease); | | | | [phone] | | Fatty liver; DM | | [...] years ago by Dr. Saravanan Tsai, in [facility]. Colonoscopy was done 05/[address] Hamlin in [facility]. Allergies Allergen Reactions Demerol Duloxetine [...] | | | | | [address] [place], [place] | | | | | | [id number] | | | | | | | [...]
--- OUTSIDE RECORDS SUMMARY | ~2019-09-25 | XMS | Encounter Summary ---
Demographics + + + | Address | [address] | | | [place] [address] | + + + | Home Phone [...] [place], [place] | | | | | [address] | | + + + + + Care Team Providers + +------+ + | Care Project Development Director Name | Role | Phone | + +------+ + PCP | Unavailable | + +------+ + Encounter Details +--------+ + + + + | Date | Type | Department | Care Team | Description | +--------+ + + + + | 05/29/ | Hospital | [facility] | | | | 1991 | Encounter | MED CTR LABORATORY | | | | | | [address] | | | | | | [place] | | | | | | [address] | | | | | | [phone] | | | +--------+ + + + [...] | | | | | [place] | | | | | | [address] | | | | | | | | +--------+---------+ + + + documented as of this encounter Visit Diagnoses Not on filedocumented in this encounter"
--- OUTSIDE RECORDS SUMMARY | ~2019-09-25 | XMS | Encounter Summary ---
Demographics + + + | Address | [address] | | | [place] [address] | + + + | Home Phone [...] [place], [place] | | | | | [address] | | + + + + + Care Team Providers + +------+ + | Care Recycle Driver Name | Role | Phone | + +------+ + PCP | Unavailable | + +------+ + Encounter Details +--------+ + + + + | Date | Type | Department | Care Team | Description | +--------+ + + + + | 06/17/ | Hospital | [facility] | | | | 1991 - | Encounter | MED CTR GENERIC PSY | | | | | | CONV DEPT [address] | | | | 06/18/ | | [address], | | | | 1991 | | [place] [address] | | | | | | [phone] | | | +--------+ + + + [...] [place] | | | | | | [address] | | | | | | | | +--------+---------+ + + + documented as of this encounter Visit Diagnoses Not on filedocumented in this encounter"
--- OUTSIDE RECORDS SUMMARY | ~2019-09-25 | XMS | Encounter Summary ---
Demographics + + + | Address | [address] | | | [place] [address] | + + + | Home Phone [...] [place] | | | | | [address] | | + + + + + Care Team Providers + +------+ + | Care Benefits Specialist Recruiter Name | Role | Phone | [...] | | | spondylolist | | [address] | | | | | hesis | | [place], | | | | | Spinal | | [place] [address] | | | | | stenosis, | | Phone: | | | | | lumbar | | [phone] | | | | | region, | | Fax: | | | | | without | | [phone] | | | | | neurogenic | [...] | lumbar region, | | | | [address] [place] | [place] [address] [place], [place] | without neurogenic | | | | [place] [address] | [address] | claudication | | | | [phone] | | (Primary Dx) | +--------+ + [...] + + + +---------+ + + | Crosby-3 Fatty | Take 1,000 mg by | [...] [place] | | | | | | [address] | | | | | | | [...]
--- OUTSIDE RECORDS SUMMARY | ~2019-09-25 | XMS | Encounter Summary ---
Demographics + + + | Address | [address] | | | [place] [address] | + + + | Home Phone [...] [place] | | | | | [address] | | + + + + + Care Team Providers + +------+ + | Care Barrel Cutter Name | Role | Phone | [...] | | | | | [address] | [place], [place] | | | | | [place], [place] | [address] | | | | | [address] | | | | | | [phone] | | | +--------+ + + + [...] [place] | | | | | | [address] | | | | | | | | +--------+---------+ + + + documented as of this encounter Visit Diagnoses Not on filedocumented in this encounter"
--- OUTSIDE RECORDS SUMMARY | ~2019-09-25 | XMS | Encounter Summary ---
Demographics + + + | Address | [address] | | | [place] [address] | + + + | Home Phone [...] [place], [place] | | | | | [address] | | + + + + + Care Team Providers + +------+ + | Care Exposure Machine Operator Name | Role | Phone | + +------+ + PCP | Unavailable | + +------+ + Encounter Details +--------+ + + + + | Date | Type | Department | Care Team | Description | +--------+ + + + + | 07/17/ | Hospital | [facility] | | | | 1997 | Encounter | MED CTR EMERGENCY | | | | | | [address] | | | | | | [place] | | | | | | [address] | | | | | | [phone] | | | +--------+ + + + [...] | | | | [place] | | | | | | [address] | | | | | | | | +--------+---------+ + + + documented as of this encounter Visit Diagnoses Not on filedocumented in this encounter"
--- OUTSIDE RECORDS SUMMARY | ~2019-09-25 | XMS | Encounter Summary ---
Demographics + + + | Address | [address] | | | [place] [address] | + + + | Home Phone [...] [place] | | | | | [address] | | + + + + + Care Team Providers + +------+ + | Care Electrical Line Worker Name | Role | Phone | [...] + + | 07/24/ | Telephone | [facility] | Ashley Chávez | Other (Patient is | | 2019 | | CARDIOLOGY GEN[place]IS Abad, Leisure Travel Agent | worried about paying | | | | [address] | | for monitor. ) | | | | [place] | | | | | | [address] | | | | | | [phone] | | | +--------+ + + + [...] [place] | | | | | | [address] | | | | | | | | +--------+---------+ + + + documented as of this encounter Visit Diagnoses Not on filedocumented in this encounter"
--- OUTSIDE RECORDS SUMMARY | ~2019-09-25 | XMS | Encounter Summary ---
Demographics + + + | Address | [address] | | | [place] [address] | + + + | Home Phone [...] [place], [place] | | | | | [address] | | + + + + + Care Team Providers + +------+ + | Care Clinic Clerk Name | Role | Phone | + +------+ + PCP | Unavailable | + +------+ + Encounter Details +--------+ + + + + | Date | Type | Department | Care Team | Description | +--------+ + + + + | 01/26/ | Hospital | [facility] | Dale, Heath E A, | | | 2012 | Encounter | MED CTR XRAY [address] | MD [address] | | | | | [place] | [place] | | | | | [place] [address] | [address] | | | | | [phone] | | | +--------+ + + + [...] [place] | | | | | | [address] | | | | | | | [...] [facility] Diagnostic Imaging Department | [facility] | | [address] | [facility] | | BILATERAL KNEES, THREE VIEWS: | [...] Transcribed | | | Date/Time: 01/27/2012 17:18 Head Sulfide Operator: | | | <Electronically Signed by Willie Perry MD> 01/27/12 8674 | | + + + + + | Procedure Note | + + | Juan, Rad Conversion - 11/30/2013 5:03 PM Merged [facility] | | Diagnostic Imaging Department [address] [place] [address] | | BILATERAL KNEES, THREE VIEWS: 01/27/2012 [...] | 01/27/2012 17:18Transcriptionist: <Electronically Signed by Willie Prery MD> | | 01/27/122253 | | | [...] 17:12 | |Transcribed Date/Time: 01/27/2012 17:18 | |Head Sulfide Operator: | |<Electronically Signed by Willie Perry MD> 01/27/12 311 | + + + +---------+ + + [...]
--- OUTSIDE RECORDS SUMMARY | ~2019-09-25 | XMS | Encounter Summary ---
Demographics + + + | Address | [address] | | | [place] [address] | + + + | Home Phone [...] [place] | | | | | [address] | | + + + + + Care Team Providers + +------+ + | Care Food Photographer Name | Role | Phone | [...] + + | 07/30/ | Telephone | [facility] | Ashley Chávez | Talia (Patient | | 2019 | | CARDIOLOGY GENESIS Abad, Nursing Home Physician | mariela ) | | | | [address] | | | | | | [place], [place] | | | | | | [address] | | | | | | [phone] | | | +--------+ + + + [...] [place] | | | | | | [address] | | | | | | | | +--------+---------+ + + + documented as of this encounter Visit Diagnoses Not on filedocumented in this encounter"
--- OUTSIDE RECORDS SUMMARY | ~2019-09-25 | XMS | Clinical Summary ---
Demographics + + + | Address | [address] | | | [place] [address] | + + + | Home Phone [...] [place] | | | | | [address] | | + + + + + Care Team Providers + +------+ + | Care Ict Trainer Name | Role | Phone | [...] | | Activ | | (VITAMIN D-3) [address] | mouth Once a week. | | [...] | | | | | | | ([facility]) | | | | | | | [...] | | | | e | | (Resolver VERIO FLEX | | | | | [...] | | 2019 | | | D, Oven Drier Tender | calling to be seen | | [...] 09/10/ | Documentati | Cardiology | Katharine Moncaad, | Other (urgent | | 2018 | [...] | | 2018 | | | D, Oven Drier Tender | to take monitor | | | | | | off. ) | +--------+ + + + + | 08/28/ | Telephone | Cardiology | Ashley Chávez | Other (Patient has | | 2018 | | | D, Oven Drier Tender | questions about | | | | [...] to | 2018 | | | D, Oven Drier Tender | tell patient what | | | [...] | | 2018 | | | D, Oven Drier Tender | anxious about urgent | | | [...] | | 2018 | | | Pollo Oven Drier Tender | about coverage. ) | +--------+ + + + + | 07/30/ | Telephone | Cardiology | Ashley Chávez | Other (Patient | | 2019 | | | D, Oven Drier Tender | concerns ) | +--------+ + + + + | 07/24/ | Telephone | Cardiology | Ashley Chávez | Other (Patient is | | 2018 | | | D, Oven Drier Tender | worried about paying | | | [...] | | 2018 | | | D, Oven Drier Tender | called to cancel her | [...] | | | | [place], [place] | | | | | | [address] | | | | | | | [...] | [employer] - | | 04/02/ | [id number] | | 5ccImplanted: Qty: 1 on | | Spine | MEDT | | 2019 | | | 07/02/2014 by Frandy Teresa | | Lumbar | | | | /[id number] | | DO Ronak at [facility] | | | | | | 6-020 | | [facility] | | | | | | / | + +------+--------+ +--------+--------+--------+ | Graft Infuse Bone Kit Xxs - | | N/A: | SOFAMOR | | 01/21/ | [id number] | | [id number]: Qty: 1 on | | Spine | DANEK - DIV | | 2014 | 0 / | | 07/02/2014 by Frandy Teresa | | Lumbar | [employer] | | | /[id number] | | A, DO at [facility] | | | - SFDK | | | [id number] | | [facility] | | | | | | | + +------+--------+ +--------+--------+--------+ | Imp Spn Spcr Cpstn 8x26mm - | | N/A: | SOFAMOR | | 01/11/ | [id number] | | [id number]: Qty: 1 on | | Spine | DANEK - DIV | | 2021 | 6 / | | 07/02/2014 by Frandy Teresa | | Lumbar | [employer] | | | /[id number] | | A, DO at [facility] | | | - SFDK | | | 928 | | [facility] | | | | | | | + +------+--------+ +--------+--------+--------+ | Set Scrw Ns G5 Brk Off Ti | | N/A: | SOFAMOR | | | [id number] | | 4.75 - [id number]: | | Spine | DANEK - DIV | | | 0 / / | | Qty: 4 on 07/02/2014 by | | Lumbar | [employer] | | | | | Frandy Teresa DO at [facility] | | | - SFDK | | | | | [facility] | | | | | | | | [place] | | | | | | | + +------+--------+ +--------+--------+--------+ | RodImplanted: Qty: 1 on | | N/A: | | | | [id number] | | 07/02/2014 by Frandy Teresa | | Spine | | | | 540 / | | DO Ronak at [facility] | | Lumbar | | | | / | | [facility] | | | | | | | + +------+--------+ +--------+--------+--------+ | RodImplanted: Qty: 1 on | | N/A: | MEDTROL - | | | [id number] | | 07/02/2014 by Frandy Teresa | | Spine | MDTR | | | 545 / | | DO Ronak at [facility] | | Lumbar | | | | / | | [facility] | | | | | | | + +------+--------+ +--------+--------+--------+ | Screw 7.5x50mm Sextant - | | N/A: | [employer] - | | | [id number] | | [id number]: Qty: 1 on | | Spine | MEDT | | | [id number] | | 07/02/2014 by Frandy Teresa | | Lumbar | | | | / / | | DO Ronak at [facility] | | | | | | | | [facility] | | | | | | | + +------+--------+ +--------+--------+--------+ | Cannulated ScrewImplanted: | | N/A: | MEDTROL - | | | [id number] | | Qty: 1 on 07/02/2014 by | | Spine | MDTR | | | [id number] | | Frandy Teresa DO at [facility] | | Lumbar | | | | / / | | [facility] | | | | | | | | CENTER | | | | | | | + +------+--------+ +--------+--------+--------+ | Cannulated ScrewImplanted: | | N/A: | MEDTRONIC - | | | [id number] | | Qty: 1 on 07/02/2014 by | | Spine | MEDT | | | [id number] | | Frandy Teresa DO at [facility] | | Lumbar | | | | / / | | [facility] | | | | | | [...] +--------+ +---------+--------+ | MEDICARE | MEDICA | [id number] | 02/22/20 | [phone] | | Medica | | | RE | | 09-Pre | 5 | | re | | | PART A | | sent | | | | | | AND B | | | | | | + +--------+ +--------+ +---------+--------+ | MEDICARE | MEDICA | [id number] | 02/22/20 | [phone] | | Medica [...] [place] | | | 8 (Home) | [address] | + +--------+ +--------+ + + | Cindy Arndt | Person | Self | [birth year] | [address] | | al/Fam | | 1954 | [phone] | [address] [place], [place] | | | [place] | | | 8 (Home) | [address] | + +--------+ +--------+ + + Advance Directives + + + + + | Type | Date Recorded | Patient | Explanation | | | | Field Crop Technical Officer | | + + + + + | Power of | | | | | Dental Laboratory Manager | | | | + + + [...]
--- OUTSIDE RECORDS SUMMARY | ~2019-09-25 | XMS | Encounter Summary ---
Demographics + + + | Address | [address] | | | [place] [address] | + + + | Home Phone [...] [place], [place] | | | | | [address] | | + + + + + Care Team Providers + +------+ + | Care Acetone Button Paster Name | Role | Phone | + +------+ + PCP | Unavailable | + +------+ + Encounter Details +--------+ + + + + | Date | Type | Department | Care Team | Description | +--------+ + + + + | 02/02/ | Hospital | [facility] | Serafin Bautista | | | 2012 | Encounter | MED CTR XRAY [address] | T, MD [address] | | | | | [place] | [address] [place], [place] | | | | | [place] [address] | [address] | | | | | [phone] | | | +--------+ + + + [...] [place] | | | | | | [address] | | | | | | | [...] | + + + | [facility] Diagnostic Imaging Department | [facility] | | [address] | [facility] | | PROCEDURE: EPIDURAL STEROID | DIAG [...] Transcribed Date/Time: | | | 02/03/2012 18:45 Service Order Dispatcher: <Electronically Signed | | | by Serafin Bautista MD> 02/14/12 0916 | | + + + + + | Procedure Note | + + | Juan, Rad Conversion - 11/30/2013 5:[address] [facility] | | Diagnostic Imaging Department | | [address] [facility] | | | | [...] | Transcribed Date/Time: 02/03/2012 18:45 | | Service Order Dispatcher: LaMAHIN | | <Electronically Signed by Serafin [...]
--- OUTSIDE RECORDS SUMMARY | ~2019-09-25 | XMS | Encounter Summary ---
Demographics + + + | Address | [address] | | | [place] [address] | + + + | Home Phone [...] [place] | | | | | [address] | | + + + + + Care Team Providers + +------+ + | Care Bleacher Operator Name | Role | Phone | [...] + + | 08/09/ | Clinical | [facility] | Desiree Peterson DO | Syncope, unspecified | | 2019 | Support | CARDIOLOGY [place] | [address] | syncope type | | | | [address] | [place], [place] | | | | | [place] [address] | [address] | | | | | [place] | | | | | | [address] | Dora De La Torre | | | | | [phone] | [place] [address] | | | | | | [address] | | | | | | [place] [address] | | | | | | [phone] | | | | | | | [...] as of this encounter Progress Notes Cindy Nichloas CMA - 08/09/2019 3:00 PM PDT4 weeks [...] [place] | | | | | | [address] | | | | | | | | +--------+---------+ + + + documented as of this encounter Visit Diagnoses + + | Diagnosis | + + | Syncope, unspecified syncope type | + + documented in this encounter"
--- OUTSIDE RECORDS SUMMARY | ~2019-09-25 | XMS | Encounter Summary ---
Demographics + + + | Address | [address] | | | [place] [address] | + + + | Home Phone [...] [place] | | | | | [address] | | + + + + + Care Team Providers + +------+ + | Care Trade Show Manager Name | Role | Phone | [...] [place] | | | | | | [address] | | | | | | [phone] | | | +--------+ + + + [...] [place] | | | | | | [address] | | | | | | | | +--------+---------+ + + + documented as of this encounter Visit Diagnoses Not on filedocumented in this encounter"
--- OUTSIDE RECORDS SUMMARY | ~2019-09-25 | XMS | Encounter Summary ---
Demographics + + + | Address | [address] | | | [place] [address] | + + + | Home Phone [...] [place] | | | | | [address] | | + + + + + Care Team Providers + +------+ + | Care Wellness Health Coach Name | Role | Phone | + +------+ + | Natalee Andersen NP | PCP | | + +------+ + Encounter Details +--------+ + + + + | Date | Type | Department | Care Team | Description | +--------+ + + + + | 06/25/ | Hospital | [facility] | Frandy Teresa, | Diabetes mellitus | | 2014 | Encounter | MED CTR OR INTRA OP | DO [address] | (HCC) (Primary Dx) | | | | [address] | [place] [place], [place] | | | | | [place], [place] | [address] | | | | | [address] | | | | | | [phone] | | | +--------+ + + + [...] + + + +---------+ + + | [place]-3 Fatty | Take 1,000 mg by | [...] [place] | | | | | | [id number] | | | | | | | [...] [facility] | | | [place] | RATE,ESTIMATED | | MEDICAL | | | | mL/min/1.13o1Cklf than | | CENTER - | | [...] + | [facility] | [address] | [place], [place] | [phone] | | [facility] | | [address] | | | - LABORATORY | | | | + + + + + | [facility] | [address] | [place], [place] | | | [facility] | | [address] | | | - LABORATORY | | [...] + | [facility] | [address] | [place] | [phone] | | [facility] | | [address] | | | - LABORATORY | | | | + + + + + | [facility] | [address] | [place], [place] | | | [facility] | | [address] | | | - LABORATORY | | [...] [address] | [place] | [phone] | | [facility] | | [address] | | | - LABORATORY | | | | + + + + + | [facility] | [address] | [place] | | | [facility] | | [address] | | | - LABORATORY | | [...] | | [facility] | | [address] | | | - BLOOD BANK | [...] + | [facility] | [address] | [place] | [phone] | | [facility] | | [address] | | | - LABORATORY | | | | + + + + + | [facility] | [address] | [place], [place] | | | [facility] | | [address] | | | - LABORATORY | [...]
--- OUTSIDE RECORDS SUMMARY | ~2019-09-25 | XMS | Encounter Summary ---
Demographics + + + | Address | [address] | | | [place] [address] | + + + | Home Phone [...] [place] | | | | | [address] | | + + + + + [...] Abstract | [facility] [place] | [facility], | | | 2012 | | GASTROENTEROLOGY | [address] | | | | | [address] [place] | [place], [address] | | | | | [address] [place], [place] | [place], [place] | | | | | [address] | [address] | | | | | [phone] | | | +--------+ + + + [...] [place] | | | | | | [address] | | | | | | | | +--------+---------+ + + + documented as of this encounter Visit Diagnoses Not on filedocumented in this encounter"
--- OUTSIDE RECORDS SUMMARY | ~2019-09-25 | XMS | Encounter Summary ---
Demographics + + + | Address | [address] | | | [place] [address] | + + + | Home Phone [...] [place], [place] | | | | | [address] | | + + + + + Care Team Providers + +------+ + | Care Electric Motor Repairer Name | Role | Phone | + +------+ + PCP | Unavailable | + +------+ + Encounter Details +--------+ + + + + | Date | Type | Department | Care Team | Description | +--------+ + + + + | 02/16/ | Hospital | [facility] | | | | 1994 | Encounter | MED CTR LABORATORY | | | | | | [address] | | | | | | [place] | | | | | | [address] | | | | | | [phone] | | | +--------+ + + + [...] | | | | [place] | | | | | | [address] | | | | | | | | +--------+---------+ + + + documented as of this encounter Visit Diagnoses Not on filedocumented in this encounter"
--- OUTSIDE RECORDS SUMMARY | ~2019-09-25 | XMS | Encounter Summary ---
Demographics + + + | Address | [address] | | | [place] [address] | + + + | Home Phone [...] [place] | | | | | [address] | | + + + + + Care Team Providers + +------+ + | Care Inspection Engineer Name | Role | Phone | + +------+ + | Basim Bolanos MD | PCP | | + +------+ + Encounter Details +--------+ + + + + | Date | Type | Department | Care Team | Description | +--------+ + + + + | 03/01/ | Abstract | [facility] [place] | [facility], | | | 2012 | | GASTROENTEROLOGY | [address]O [address] | | | | | [address] [place] | [place], [address] | | | | | [address] [place], [place] | [place], [place] | | | | | [address] | [address] | | | | | [phone] | | | +--------+ + + + [...] [place] | | | | | | [address] | | | | | | | | +--------+---------+ + + + documented as of this encounter Visit Diagnoses Not on filedocumented in this encounter"
--- OUTSIDE RECORDS SUMMARY | ~2019-09-25 | XMS | Encounter Summary ---
Demographics + + + | Address | [address] | | | [place] [address] | + + + | Home Phone [...] [place] | | | | | [address] | | + + + + + Care Team Providers + +------+ + | Care Political Director Name | Role | Phone | [...] + + | 08/20/ | Documentati | [facility] | Katharine Moncada, | Other (urgent | | 2019 | on | CARDIOLOGY [place] | Technologist | report) | | | | [address] | | | | | | [place] | | | | | | [address] | | | | | | [phone] | | | +--------+ + + + [...] [place] | | | | | | [phone] | | | | | | | | +--------+---------+ + + + documented as of this encounter Visit Diagnoses Not on filedocumented in this encounter"
--- OUTSIDE RECORDS SUMMARY | ~2019-09-25 | XMS | Encounter Summary ---
Demographics + + + | Address | [address] | | | [place] [address] | + + + | Home Phone [...] [place] | | | | | [address] | | + + + + + Care Team Providers + +------+ + | Care Demographer Name | Role | Phone | + +------+ + | Natalee Andersen NP | PCP | | + +------+ + Encounter Details +--------+ + + + + | Date | Type | Department | Care Team | Description | +--------+ + + + + | 05/02/ | Hospital | [facility] | Frandy Teresa, | Back pain | | 2014 | Encounter | MED CTR XRAY [address] | DO [address] | | | | | [place] | [address] [place] | | | | | [place] [address] | [address] | | | | | [phone] | | | +--------+ + + + [...] + + + +---------+ + + | Goff-3 Fatty | Take 1,000 mg by | [...] | | | | | [place] | | | | | | [address] | | | | | | | [...] + | MISCELLANEOUS LAB | | | [phone] | + +---------+ + + | MISCELANIOUS LAB | | | [phone] | + +---------+ + + documented in this encounter Visit Diagnoses + + | Diagnosis | + + | Back pain Backache, unspecified | + + documented in this encounter"
--- OUTSIDE RECORDS SUMMARY | ~2019-09-25 | XMS | Encounter Summary ---
Demographics + + + | Address | [address] | | | [place] [address] | + + + | Home Phone [...] [place] | | | | | [address] | | + + + + + Care Team Providers + +------+ + | Care Dermatologist Name | Role | Phone | [...] + + | 08/16/ | Telephone | [facility] | Ashley Chávez | Other (Called to | | 2018 | | CARDIOLOGY [place] | Pollo, Hat Body Sorter | tell patient what | | | | [address] | | Nicholas said. ) | | | | [address] | | | | | | [place] | | | | | | [address] | | | | | | [phone] | | | +--------+ + + + [...] [place] | | | | | | [address] | | | | | | | | +--------+---------+ + + + documented as of this encounter Visit Diagnoses Not on filedocumented in this encounter"
--- OUTSIDE RECORDS SUMMARY | ~2019-09-25 | XMS | Encounter Summary ---
Demographics + + + | Address | [address] | | | [place] [address] | + + + | Home Phone [...] [place] | | | | | [address] | | + + + + + Care Team Providers + +------+ + | Care Pipe Bender Name | Role | Phone | [...] | | | | | pain, | [place], [place] | | | | | | bilateral | [address] | | | | | | Degenerative | Phone: | | | | | | disc | [phone] | | | | | | disease, | Fax: | | | | | | lumbar | [phone] | | | | | | Spinal [...] [address] | [address] [place], [place] | (Primary Dx); Knee | | | | [place], [place] | [address] | pain, bilateral; | | | | [address] | | DEGENERATIVE DISC | | | | [phone] | | DISEASE, LUMBAR | | | [...] | | | | [place] | | | | | | [address] | | | | | | | [...]
--- OUTSIDE RECORDS SUMMARY | ~2019-09-25 | XMS | Encounter Summary ---
Demographics + + + | Address | [address] | | | [place] [address] | + + + | Home Phone [...] [place] | | | | | [address] | | + + + + + Care Team Providers + +------+ + | Care Occupational Health Nursing Director Name | Role | Phone | [...] + + | 08/21/ | Documentati | [facility] | Katharine Moncada, | Other (urgent | | 2019 | on | CARDIOLOGY [place] | Technologist | report) | | | | [address] | | | | | | [place] | | | | | | [address] | | | | | | [phone] | | | +--------+ + + + [...] [place] | | | | | | [address] | | | | | | | | +--------+---------+ + + + documented as of this encounter Visit Diagnoses Not on filedocumented in this encounter"
--- OUTSIDE RECORDS SUMMARY | ~2019-09-25 | XMS | Encounter Summary ---
Demographics + + + | Address | [address] | | | [place] [address] | + + + | Home Phone [...] [place] | | | | | [address] | | + + + + + Care Team Providers + +------+ + | Care Property Management Specialist Name | Role | Phone [...] + | 11/25/ | Telephone | [facility] | Frandy Teresa, | Medication Refill | | 2015 | | NEUROSURGERY [address] | DO [address] | Assistance | | | | [address] | [address] [place], [place] | | | | | [place], [place] | [address] | | | | | [address] | | | | | | [phone] | | | +--------+ + + + [...] | | | | [place] | | | | | | [address] | | | | | | | | +--------+---------+ + + + documented as of this encounter Visit Diagnoses Not on filedocumented in this encounter"
--- OUTSIDE RECORDS SUMMARY | ~2019-09-25 | XMS | Encounter Summary ---
Demographics + + + | Address | [address] | | | [place] [address] | + + + | Home Phone [...] [place], [place] | | | | | [address] | | + + + + + Care Team Providers + +------+ + | Care Manufacturing Management Associate Name | Role | Phone | + +------+ + PCP | Unavailable | + +------+ + Encounter Details +--------+ + + + + | Date | Type | Department | Care Team | Description | +--------+ + + + + | 03/26/ | Hospital | [facility] | | | | 2001 | Encounter | MED CTR LABORATORY | | | | | | [address] | | | | | | [place] | | | | | | [address] | | | | | | [phone] | | | +--------+ + + + [...] 10/11/ | Office | Cardiology | Desiree Petesron DO | | | 2019 | Visit | | [address] | | | | | | [place] | | | | | | [address] | | | | | | | | +--------+---------+ + + + documented as of this encounter Visit Diagnoses Not on filedocumented in this encounter"
--- OUTSIDE RECORDS SUMMARY | ~2019-09-25 | XMS | Encounter Summary ---
Demographics + + + | Address | [address] | | | [place] [address] | + + + | Home Phone [...] [place] | | | | | [address] | | + + + + + Care Team Providers + +------+ + | Care Control Equipment Electrician Name | Role | Phone | + +------+ + | Natalee Andersen NP | PCP | | + +------+ + Encounter Details +--------+ + + + + | Date | Type | Department | Care Team | Description | +--------+ + + + + | 09/27/ | Hospital | [facility] | Frandy Teresa, | Lumbar spondylosis; | | 2013 | Encounter | MED CTR XRAY [address] | DO [address] | S/P lumbar fusion | | | | [place] | [address] [place], [place] | | | | | [place] [address] | [address] | | | | | [phone] | | | +--------+ + + + [...] + + + +---------+ + + | [place]-3 Fatty | Take 1,000 mg by | [...] [place] | | | | | | [address] | | | | | | | [...] + | MISCELLANEOUS LAB | | | [phone] | + +---------+ + + | MISCELANIOUS LAB | | | [phone] | + +---------+ + + documented in this encounter Visit Diagnoses + + | Diagnosis | + + | Lumbar spondylosis Lumbosacral spondylosis without myelopathy | + + | S/P lumbar fusion Arthrodesis status | + + documented in this encounter"
--- OUTSIDE RECORDS SUMMARY | ~2019-09-25 | XMS | Encounter Summary ---
Demographics + + + | Address | [address] | | | [place] [address] | + + + | Home Phone [...] [place] | | | | | [address] | | + + + + + Care Team Providers + +------+ + | Care Acid Tester Name | Role | Phone | [...] [address] | [address] [place], [place] | fusion | | | | [place], [place] | [address] | | | | | [address] | | | | | | [phone] | | | +--------+ + + + [...] [place] | | | | | | [address] | | | | | | | | +--------+---------+ + + + documented as of this encounter Visit Diagnoses + + | Diagnosis | + + | Lumbago - Primary | + + | S/P lumbar fusion Arthrodesis status | + + documented in this encounter"
--- OUTSIDE RECORDS SUMMARY | ~2019-09-25 | XMS | Clinical Summary ---
Demographics + + + | Address | [address] | | | [place] [address] | + + + | Home Phone [...] + | Author | [facility] [employer] (Historical as of | | | 06-09-19) | + + + | Organization | [facility] (Historical as of | | [...] | | Activ | | (VITAMIN D3) [address] | a week. | | | | [...] T2DM (type 2 diabetes mellitus) ([facility]) | 04/13/2013 | + + + [...] +------+-------+ + | MEDICARE | MEDICA | [id number] | | | [address] | | | RE | | | | [place] [address] | | | IP-OP | | | [...] | [birth year] | Home: | [address] | | | al/Fam | | 1955 | [phone] | [address] [place] | | | [place]onte | | | [phone] | + +--------+ +--------+ + +
--- OUTSIDE RECORDS SUMMARY | ~2019-09-25 | XMS | Encounter Summary ---
Demographics + + + | Address | [address] | | | [place] [address] | + + + | Home Phone [...] [place] | | | | | [address] | | + + + + + Care Team Providers + +------+ + | Care Hand Blocker Name | Role | Phone | [...] + | 08/15/ | Documentati | [facility] | Katharine Moncada, | Other (urgent | | 2019 | on | CARDIOLOGY [place] | Technologist | report) | | | | [address] | | | | | | [place] | | | | | | [address] | | | | | | [phone] | | | +--------+ + + + [...] [place] | | | | | | [address] | | | | | | | | +--------+---------+ + + + documented as of this encounter Visit Diagnoses Not on filedocumented in this encounter"
--- OUTSIDE RECORDS SUMMARY | ~2019-09-25 | XMS | Encounter Summary ---
Demographics + + + | Address | [address] | | | [place] [address] | + + + | Home Phone [...] [place], [place] | | | | | [address] | | + + + + + Care Team Providers + +------+ + | Care Medical Records Clerk Name | Role | Phone | + +------+ + PCP | Unavailable | + +------+ + Encounter Details +--------+ + + + + | Date | Type | Department | Care Team | Description | +--------+ + + + + | 12/27/ | Hospital [facility] | | | | 1995 | Encounter | MED CTR LABORATORY | | | | | | [address] | | | | | | [place] | | | | | | [address] | | | | | | [phone] | | | +--------+ + + + [...] | | | | | [place] | | | | | | [address] | | | | | | | | +--------+---------+ + + + documented as of this encounter Visit Diagnoses Not on filedocumented in this encounter"
--- OUTSIDE RECORDS SUMMARY | ~2019-09-25 | XMS | Encounter Summary ---
Demographics + + + | Address | [address] | | | [place] [address] | + + + | Home Phone [...] [place] | | | | | [address] | | + + + + + Care Team Providers + +------+ + | Care Car Designer Name | Role | Phone | [...] [address] | [address] [place], [place] | | | | | [place], [place] | [id number] | | | | | [address] | | | | | | [phone] | | | +--------+ + + + [...] [place] | | | | | | [address] | | | | | | | | +--------+---------+ + + + documented as of this encounter Visit Diagnoses Not on filedocumented in this encounter"
--- OUTSIDE RECORDS SUMMARY | ~2019-09-25 | XMS | Encounter Summary ---
Demographics + + + | Address | [address] | | | [place] [address] | + + + | Home Phone [...] [place] | | | | | [address] | | + + + + + Care Team Providers + +------+ + | Care Hide Paster Name | Role | Phone | + +------+ + | Natalee Andersen NP | PCP | | + +------+ + Encounter Details +--------+ + + + + | Date | Type | Department | Care Team | Description | +--------+ + + + + | 06/25/ | Hospital | [facility] | Frandy Teresa, | Diabetes mellitus | | 2014 | Encounter | MED CTR OR INTRA OP | DO [address] | (HCC) (Primary Dx) | | | | [address] | [address] [place], [place] | | | | | [place], [place] | [address] | | | | | [address] | | | | | | [phone] | | | +--------+ + + + [...] + + + +---------+ + + | Pavo-3 Fatty | Take 1,000 mg by | [...] [place] | | | | | | [id number] | | | | | | | [...] | | MEDICAL | | | | mL/min/1.43z5Erht than | | CENTER - | | [...] + | [facility] | [address] | [place], [place] | [phone] | | [facility] | | [address] | | | - LABORATORY | | | | + + + + + | [facility] | [address] | [place], [place] | | | [facility] | | [address] | | | - LABORATORY | | [...] + | [facility] | [address] | [place] | [phone] | | [facility] | | [address] | | | - LABORATORY | | | | + + + + + | [facility] | [address] | [place], [place] | | | [facility] | | [address] | | | - LABORATORY | | [...] [address] | [place] | [phone] | | [facility] | | [address] | | | - LABORATORY | | | | + + + + + | [facility] | [address] | [place] | | | [facility] | | [address] | | | - LABORATORY | | [...] | | [facility] | | [address] | | | - BLOOD BANK | [...] + | [facility] | [address] | [place] | [phone] | | [facility] | | [address] | | | - LABORATORY | | | | + + + + + | [facility] | [address] | [place], [place] | | | [facility] | | [address] | | | - LABORATORY | | [...]
--- OUTSIDE RECORDS SUMMARY | ~2019-09-25 | XMS | Encounter Summary ---
Demographics + + + | Address | [address] | | | [place] [address] | + + + | Home Phone [...] [place] | | | | | [address] | | + + + + + Care Team Providers + +------+ + | Care Car Storer Name | Role | Phone | + [...] + | 02/21/ | Refill | [facility] | Deon Gonzales | Medication Refill | | 2012 | | SLEEP DISORDER [address] | MD [address] | | | | | [address] [place] | [address] [place] | | | | | [place] [address] | [place] [address] | | | | | [phone] | [phone] | | | | | | | [...] [place] | | | | | | [address] | | | | | | | | +--------+---------+ + + + documented as of this encounter Visit Diagnoses + + | Diagnosis | + + | Obstructive sleep apnea (adult) (pediatric) - Primary | + + documented in this encounter"
--- OUTSIDE RECORDS SUMMARY | ~2019-09-25 | XMS | Encounter Summary ---
Demographics + + + | Address | [address] | | | [place] [address] | + + + | Home Phone [...] [place] | | | | | [address] | | + + + + + Care Team Providers + +------+ + | Care Asset Protection Manager Name | Role | Phone | + +------+ + | Thierry Fry MD | PCP | | + +------+ + Encounter Details +--------+ + + + + | Date | Type | Department | Care Team | Description | +--------+ + + + + | 03/06/ | Hospital | [facility] | Katharine Cardona PA-C | Essential | | 2015 | Encounter | MED CTR LABORATORY | [address] | hypertension | | | | [address] [place] | [place] [address] | | | | | [place], [place] | [phone] | | | | | [address] | | | | | | [phone] | | | +--------+ + + + [...] 0 | | | | (VITAMIN D-3) [address] | mouth Once a week. | | [...] + + + +---------+ + + | [place]-3 Fatty | Take 1,000 mg by | 60 each | 5 | 03/09/20 | | | Acids (FISH OIL | mouth 2 times daily. | | | 15 | 9 | | CONCENTRATE) 1000 MG | | | | | | | CAPS | | | | | | + + + +---------+ + + | [place]-3 Fatty | Take 1,000 mg by | [...] | | | | | [place] | | | | | | [address] | | | | | | | [...] [address] | | | [place] | RATE,ESTIMATED | | MEDICAL | | | | mL/min/1.42o5Joxl than | | CENTER - | | [...] | 9.6 | 8.3 - 10.5 | [facility] | | | | | mg/dL | [facility] | | | | | | MEDICAL | | | | | | CENTER - | | | | | | LABORATORY | | + + + + + + | Albumin | 4.1 | 3.2 - 5.0 g/dL | [facility] | | | | | | [facility] | | | | | | MEDICAL [...] [address] | [place] | [phone] | | [facility] | | [address] | | | - LABORATORY | | | | + + + + + documented in this encounter Visit Diagnoses + + | Diagnosis | + + | Essential hypertension Unspecified essential hypertension | + + documented in this encounter"
--- OUTSIDE RECORDS SUMMARY | ~2019-09-25 | XMS | Encounter Summary ---
Demographics + + + | Address | [address] | | | [place] [address] | + + + | Home Phone [...] [place] | | | | | [address] | | + + + + + Care Team Providers + +------+ + | Care Credit Products Officer Name | Role | Phone | [...] + + | 02/01/ | Telephone | [facility] | Frandy Teresa, | Imaging Only | | 2019 | | NEUROSURGERY [address] | DO [address] | | | | | [address] | [address] [place], [place] | | | | | [place], [place] | [address] | | | | | [address] | | | | | | [phone] | | | +--------+ + + + [...] [place] | | | | | | [address] | | | | | | | | +--------+---------+ + + + documented as of this encounter Visit Diagnoses Not on filedocumented in this encounter"
--- OUTSIDE RECORDS SUMMARY | ~2019-09-25 | XMS | Encounter Summary ---
Demographics + + + | Address | [address] | | | [place] [address] | + + + | Home Phone [...] [place] | | | | | [address] | | + + + + + Care Team Providers + +------+ + | Care Senior Power Plant Operator Name | Role | Phone [...] | | [address] | [place], [place] | | | | | [place], [place] | [address] | | | | | [address] | | | | | | [phone] | | | +--------+ + + + [...] | | | | | [place] | | | | | | [address] | | | | | | | [...] 0.83 m/s | | | MV Dec Winston: 2.85 m/s2 MV DecT: 282.89 ms MV E Teodoro: 0.80 | | | m/s MV E/A Ratio: 0.96 E/E' Sept: 12.59 E' Lat: 0.08 m/s | | | E' Sept: 0.06 m/s RAP: 10 mmHg RV S': 0.11 m/s RVSP: | | | 27.96 mmHg TR maxP.96 mmHg TR Vmax: 2.11 m/s | | | Software Test Manager: Authenticated by: Desiree Peterson MD Report Date/Time: | | | -- 65_06-0-7442_8:31:1 | | + + + + + [...] (A-L): 19.60 | | ml/m2LAAs A2C: 15.44 [id number] A-L A2C: 43.84 mlLAESV MOD A2C: 42.12 mlLALs A2C: | | 4.61 cmLAAs A4C: 14.18 [id number] A-L A4C: 38.73 mlLAESV MOD A4C: 37.04 mlLALs A4C: | | 4.41 cmRAAs: 12.15 [id number] A-L: 28.54 mlRAESV MOD: 28.66 mlRALs: 4.39 | | cmTAPSE: 2.42 cmAV Env.Ti: 293.94 msAV maxP.18 mmHgAV meanP.09 mmHgAV | | Vmax: 1.88 m/Eddie Vmean: 1.25 m/Eddie VTI: 36.84 cmAVA Vmax: 2.06 cm2AVA (VTI): | | 2.24 fq1OJYL Vmax: 0.00 cm2/m2AVAI (VTI): 0.00 cm2/m2LVOT Env.Ti: 299.59 msLVOT | | maxP.52 mmHgLVOT meanP.65 mmHgLVSI Dopp: 38.55 ml/m2LVSV Dopp: 82.89 | | mlLVOT Vmax: 1.27 m/sLVOT Vmean: 0.91 m/sLVOT VTI: 27.27 cmMV A Teodoro: 0.83 m/sMV | | Dec Winston: 2.85 m/s2MV DecT: 282.89 msMV E Teodoro: 0.80 m/sMV E/A Ratio: 0.96E/E' | | Sept: 12.59E' Lat: 0.08 m/sE' Sept: 0.06 m/sRAP: 10 mmHgRV S': 0.11 m/sRVSP: | | 27.96 mmHgTR maxP.96 mmHgTR Vmax: 2.11 m/s Software Test Manager:Authenticated by: | | Desiree Peterson MDReport Date/Time: -- 42_[id number]_0:31:1 IMPRESSION: 1. Overall left | | ventricular [...] A Teodoro: 0.83 m/s | |MV Dec Winston: 2.85 m/s2 | |MV DecT: 282.89 ms | |MV E Teodoro: 0.80 m/s | |MV E/A Ratio: 0.96 | |E/E' Sept: 12.59 | |E' Lat: 0.08 m/s | |E' Sept: 0.06 m/s | |RAP: 10 mmHg | |RV S': 0.11 m/s | |RVSP: 27.96 mmHg | |TR maxP.96 mmHg | |TR Vmax: 2.11 m/s | | | |Software Test Manager: | |Authenticated by: Desiree Peterson MD | |Report Date/Time: -- 27_[id number]_3:31:1 | | | |IMPRESSION: | |1. Overall [...]
--- OUTSIDE RECORDS SUMMARY | ~2019-09-25 | XMS | Encounter Summary ---
Demographics + + + | Address | [address] | | | [place] [address] | + + + | Home Phone [...] [place] | | | | | [address] | | + + + + + [...] [place] | | | | | | [address] | | | | | | [phone] | | | +--------+ + + + [...] [place] | | | | | | [address] | | | | | | | | +--------+---------+ + + + documented as of this encounter Visit Diagnoses Not on filedocumented in this encounter"
--- OUTSIDE RECORDS SUMMARY | ~2019-09-25 | XMS | Encounter Summary ---
Demographics + + + | Address | [address] | | | [place] [address] | + + + | Home Phone [...] [place] | | | | | [address] | | + + + + + [...] | Abstract | [facility] [place] | [facility], | | | 2012 | | GASTROENTEROLOGY | [place]O [address] | | | | | [address] [place] | [place], [address] | | | | | [address] [place], [place] | [place], [place] | | | | | [address] | [address] | | | | | [phone] | | | +--------+ + + + [...] [place] | | | | | | [address] | | | | | | | | +--------+---------+ + + + documented as of this encounter Visit Diagnoses Not on filedocumented in this encounter"
--- OUTSIDE RECORDS SUMMARY | ~2019-09-25 | XMS | Encounter Summary ---
Demographics + + + | Address | [address] | | | [place] [address] | + + + | Home Phone [...] [place] | | | | | [address] | | + + + + + Care Team Providers + +------+ + | Care Gun Perforator Name | Role | Phone | + [...] [address] | [address] [place], [place] | Anxiety; Anemia; | | | | [place], [place] | [address] | Irregular heartbeat; | | | | [address] | | Depression; | | | | [phone] | | Migraine; | | | | [...] | | | | | [facility] | | | | | | [address] [...]
--- OUTSIDE RECORDS SUMMARY | ~2019-09-25 | XMS | Encounter Summary ---
Demographics + + + | Address | [address] | | | [place] [address] | + + + | Home Phone [...] [place] | | | | | [address] | | + + + + + Care Team Providers + +------+ + | Care Television Writer Name | Role | Phone | [...] + | 09/26/ | Refill | [facility] | Frandy Teresa, | Medication Refill | | 2013 | | NEUROSURGERY [address] | DO [address] | | | | | [address] | [address] [place], [place] | | | | | [place], [place] | [id number] | | | | | [address] | | | | | | [phone] | | | +--------+--------+ + + + [...] | | | | | [place] | | | | | | [address] | | | | | | | | +--------+---------+ + + + documented as of this encounter Visit Diagnoses Not on filedocumented in this encounter"
--- OUTSIDE RECORDS SUMMARY | ~2019-09-25 | XMS | Encounter Summary ---
Demographics + + + | Address | [address] | | | [place] [address] | + + + | Home Phone [...] [place] | | | | | [address] | | + + + + + Care Team Providers + +------+ + | Care Adult Education Professional Name | Role | Phone [...] [address] | [address] [place], [place] | Anxiety; Anemia; | | | | [place] | [address] | Irregular heartbeat; | | | | [address] | | Depression; | | | | [phone] | | Migraine; | | | | [...] | | | | | | [facility] [facility] | | | | | | [address] | | | | | | | [...]
--- OUTSIDE RECORDS SUMMARY | ~2019-09-25 | XMS | Encounter Summary ---
Demographics + + + | Address | [address] | | | [place] [address] | + + + | Home Phone [...] [place] | | | | | [address] | | + + + + + [...] + + | 07/25/ | Hospital | [facility] | Frandy Teresa, | Status post lumbar | | 2014 | Encounter | MED [facility] XRAY [address] | DO [address] | spinal fusion | | | | [place] | [address] [place], [place] | | | | | [place] [address] | [id number] | | | | | [phone] | | | +--------+ + + + [...] + + + +---------+ + + | [place]-3 Fatty | Take 1,000 mg by [...] [place] | | | | | | [address] | | | | | | | [...] + | MISCELLANEOUS LAB | | | [phone] | + +---------+ + + | MISCELANIOUS LAB | | | [phone] | + +---------+ + + documented in this encounter Visit Diagnoses + + | Diagnosis | + + | Status post lumbar spinal fusion Arthrodesis status | + + documented in this encounter"
--- OUTSIDE RECORDS SUMMARY | ~2019-09-25 | XMS | Encounter Summary ---
Demographics + + + | Address | [address] | | | [place] [address] | + + + | Home Phone [...] [place], [place] | | | | | [address] | | + + + + + [...] | 07/17/ | Hospital | [facility] | | | | 1997 - | Encounter | MED CTR GENERIC PSY | | | | | | CONV DEPT [address] | | | | 07/25/ | | [place], | | | | 1997 | | [place] [address] | | | | | | [phone] | | | +--------+ + + + [...] [place] | | | | | | [address] | | | | | | | | +--------+---------+ + + + documented as of this encounter Visit Diagnoses Not on filedocumented in this encounter"
--- OUTSIDE RECORDS SUMMARY | ~2019-09-25 | XMS | Encounter Summary ---
Demographics + + + | Address | [address] | | | [place] [address] | + + + | Home Phone [...] [place] | | | | | [address] | | + + + + + Care Team Providers + +------+ + | Care Manager Grant Name | Role | Phone | + [...] | | | spondylolist | | [address] | | | | | hesis | | [place], | | | | | Spinal | | [place] [address] | | | | | stenosis, | | Phone: | | | | | lumbar | | [phone] | | | | | region, | | Fax: | | | | | without | | [phone] | | | | | neurogenic | [...] | | | | | [address] | [address] [place] | | | | | [place] | [phone] | | | | | [address] | | | | | | [phone] | | | +--------+ + + + [...] mask AW. DL times one with [facility] [place] 3 easy view [...] +----+---+ + + | | 1 | [place] | | | | 2 | 43-degrees | | | | 3 | | | | | 1 | | | +----+---+ + + | | 1 | [place] off | | | | 4 | [...] | | | | | [place], [place] | | | | | | [phone] | | | | | | | [...]
--- OUTSIDE RECORDS SUMMARY | ~2019-09-25 | XMS | Encounter Summary ---
Demographics + + + | Address | [address] | | | [place] [address] | + + + | Home Phone [...] [place] | | | | | [address] | | + + + + + Care Team Providers + +------+ + | Care Weight Clerk Name | Role | Phone | [...] + + | 02/26/ | Emergency | [facility] | [place], | CVA (cerebral | | 2015 | | MED CTR EMERGENCY | Davey Simons MD [address] | vascular accident) | | | | CENTER [address] | [address] | ([facility]) (Primary Dx) | | | | [place], [place] | [place] [address] | | | | | [address] | [phone] | | | | | [phone] | | | +--------+ + + + [...] + + + +---------+ + + | Petros-3 Fatty | Take 1,000 mg by | [...] | | | | | [place] | | | | | | [address] | | | | | | | [...] mL/min/1.73m2 | [facility] | | | MALIAN | RATE,ESTIMATED | | MEDICAL | | | | mL/min/1.30j9Lodl than | | CENTER - | | [...] | 9.1 | 8.3 - 10.5 | [facility] | | | | | [...] [address] | [place] | [phone] | | [facility] | | [address] | | | - LABORATORY | | [...] [address] | [place] | [phone] | | [facility] | | [address] | | | - LABORATORY | | [...] | ---- | | | 02/26/2015 13:10 [facility] | | | Emergency -numbness/facial droop 02/26/2015 08:15 [facility] | | | [facility] 02/19/2015 | | | 10:15 [facility] | | | -Diabetes [...] as uncontrolled 02/17/2015 | | | 08:22 [facility] Emergency | | | -Long-term (current) [...] and uterus 02/14/2015 | | | 09:56 [facility] Emergency | | | -Disturbance of [...] status 02/06/2015 10:46 | | | [facility] | | | -Generalized pain [...] residual deficits | | | 02/01/2015 21:38 [facility] | | | Emergency 01/22/2015 14:00 [facility] | | | Urgent Care -Myalgia [...] intervertebral disc | | | 01/16/2015 12:15 [facility] | | | Urgent Care -Unspecified [...] other | | | medications 01/07/2015 11:45 [facility] | | | Urgent Care -Unspecified [...] acquired hypothyroidism 12/30/2014 | | | 17:54 [facility] Emergency | | | -Obstructive sleep [...] essential hypertension | | | 12/30/2014 14:30 [facility] | | | Urgent Care -Cramp [...] | | -Cramp of limb 11/29/2014 16:15 [facility] | | | Urgent Care -Esophageal [...] ------ | | | --------- [address] | | | [facility] [address] | | | [facility] [...]
--- OUTSIDE RECORDS SUMMARY | ~2019-09-25 | XMS | Encounter Summary ---
Demographics + + + | Address | [address] | | | [place] [address] | + + + | Home Phone [...] [place] | | | | | [address] | | + + + + + Care Team Providers + +------+ + | Care Journeyman Sheet Metal Worker Name | Role | [...] | [address] | [place], [place] | (Primary Dx); | | | | WAY [place] | [address] | Essential | | | | [place] | | hypertension; | | | | [address] | | Irregular heartbeat | | | | [phone] | | | +--------+---------+ + + + [...] Peterson DO - 07/19/2019 10:40 AM PDT [facility] Cardiology Follow [...] by mouth daily. Blood Glucose Monitoring Suppl ([employer] VERIO FLEX SYSTEM) w/Device KIT by Does not ap ply route. budesonide-formoterol (SYMBICORT) 160-4.5 MCG/ACT inhaler Inhale 2 puffs into the lungs 2 (two) times daily. Calcium Carbonate Antacid 1000 MG tablet Take 1,000 mg by mouth 3 (three) times daily. Cholecalciferol (VITAMIN D3) 59679 units CAPS Take by mouth once a [...] [place] | | | | | | [address] | | | | | | | [...]
--- OUTSIDE RECORDS SUMMARY | ~2019-09-25 | XMS | Encounter Summary ---
Demographics + + + | Address | [address] | | | [place] [address] | + + + | Home Phone [...] [place], [place] | | | | | [address] | | + + + + + Care Team Providers + +------+ + | Care Police Communications Dispatcher Name | Role | Phone | + +------+ + PCP | Unavailable | + +------+ + Encounter Details +--------+ + + + + | Date | Type | Department | Care Team | Description | +--------+ + + + + | 12/27/ | Hospital | [facility] | | | | 1997 | Encounter | MED CTR EMERGENCY | | | | | | [address] | | | | | | [place] | | | | | | [address] | | | | | | [phone] | | | +--------+ + + + [...] | | | | | [place] | | | | | | [address] | | | | | | | | +--------+---------+ + + + documented as of this encounter Visit Diagnoses Not on filedocumented in this encounter"
--- OUTSIDE RECORDS SUMMARY | ~2019-09-25 | XMS | Encounter Summary ---
Demographics + + + | Address | [address] [address] [facility] [address] | | | [place] [address] | + + + | Home Phone [...] [place] | | | | | [address] | | + + + + + Care Team Providers + +------+ + | Care Geothermal Operations Manager Name | Role | Phone [...] | Transcriptions | + + | Interface, Mortgage Banker In - 11/04/2006 3:03 AM PST | | [address] | | [place], [place] [address] [facility] and | | ClinicsOPERATION RECORDMed Rec [...] skin retractor was put in place. The [place] elevators wereused to separate the | | [...]
--- OUTSIDE RECORDS SUMMARY | ~2019-09-25 | XMS | Encounter Summary ---
Demographics + + + | Address | [address] | | | [place] [address] | + + + | Home Phone [...] [place] | | | | | [address] | | + + + + + Care Team Providers + +------+ + | Care Coffee Grinder Name | Role | Phone | [...] | | | | | Procedures | SENIOR JAVA PROGRAMMER ANALYST [address] | [address] | | | | | [place] OFFICE | | [place] [address] | | | | | CONSULTATION | [address] | [place] | | | | | NEW/ESTAB | [facility], | [address] Phone: | | | | | PATIENT 60 | [place] [address] | [phone] | | | | | MIN | Phone: | Fax: | | | | | | [phone] | [phone] | | | | | | Fax: | | | | | | | [phone] | | +--------+--------+ + + + + Encounter Details +--------+---------+ + + + | Date | Type | Department | Care Team | Description | +--------+---------+ + + + | 05/02/ | Office | [facility] | Frandy Teresa, | Spondylolisthesis of | | 2013 | Visit | NEUROSURGERY [address] | DO [address] | lumbar region | | | | [address] [place] [address] | [place] [address] [place], [place] | (Primary Dx); Lumbar | | | | [place], [place] | [id number] | stenosis; Lumbar | | | | [address] | | radicular pain; | | | | [phone] | | Lumbago | +--------+---------+ + + [...] [facility] [address] [place] [address] FAX: NEUROSURGERY HISTORY AND PHYSICAL EXAMINATION CHIEF [...] Take 15 mg by mouth nightl y. [place]-3 Fatty Acids (FISH OIL CONCENTRATE) 1000 MG [...] no apparent deficits with short or manager terminal memory. CRANIAL NERVES: II: Acuity is [...] 5 5 Ulnar Intrinsics 5 5 Manager Van Strength 5 5 Hip Flexion 5 4* [...] | | | | [place] | | | | | | [id number] | | | | | | | [...]
--- OUTSIDE RECORDS SUMMARY | ~2019-09-25 | XMS | Encounter Summary ---
Demographics + + + | Address | [address] [facility] [address] | | | [place] [address] | + + + | Home Phone [...] [place] | | | | | [address] | | + + + + + Care Team Providers + +------+ + | Care Insurance Adviser Name | Role | Phone | [...] | Transcriptions | + + | Interface, Manager Night In - 10/24/2006 3:09 AM PST | | [facility] | | Road [place], [place] [address] [place] | | [facility] CenterOPERATION RECORDMed Rec No.: [id number] Date: | [...]
--- OUTSIDE RECORDS SUMMARY | ~2019-09-25 | XMS | Encounter Summary ---
Demographics + + + | Address | [address] | | | [place] [address] | + + + | Home Phone [...] [place] | | | | | [address] | | + + + + + Care Team Providers + +------+ + | Care Analysis Internship Name | Role | Phone | [...] + + | 06/27/ | Office | [facility] | Yecenia Richardson, | Hypertension, | | 2019 | Visit | CARDIOLOGY [place] | MD Nitin RODRIGUES | unspecified type | | | | [address] | [place], [place] | (Primary Dx); | | | | KEV SCHAFER [facility] | [address] | Bradycardia | | | | [place] | | | | | | [address] | | | | | | [phone] | | | +--------+---------+ + + + [...] basis. Had an appointment today in [facility]. She has been feeling dizzy as of [...] Take by mouth. Blood Glucose Monitoring Suppl (TV Volume Wizard App VERIO FLEX SYSTEM) w/Device KIT by Does [...] mg by mouth Daily. Cholecalciferol (VITAMIN D-3) 94538 units CAPS Take 50,000 Units by mouth [...] tablet Take 10 mg by mouth nightly. [place]-3 Fatty Acids (FISH OIL CONCENTRATE) 1000 MG [...] | | [place] [facility] [place] | | | | | | [address] | | | | | | | [...]
--- OUTSIDE RECORDS SUMMARY | ~2019-09-25 | XMS | Encounter Summary ---
Demographics + + + | Address | [address] | | | [place] [address] | + + + | Home Phone [...] [place] | | | | | [address] | | + + + + + Care Team Providers + +------+ + | Care Rotary Swaging Machine Operator Name | Role | Phone [...] + + | 08/09/ | Documentati | [facility] | Katharine Moncada, | Other (end of study) | | 2019 | on | CARDIOLOGY CROMPOND | Technologist | | | | | [address] | | | | | | [place], [place] | | | | | | [address] | | | | | | [phone] | | | +--------+ + + + [...] Technologist - 08/09/2019 11:59 PM PDT Cardiac Photographic Developer And Printer Date of Event Monitor: 08/09/19 Referring Physician: [...] [place] | | | | | | [address] | | | | | | | | +--------+---------+ + + + documented as of this encounter Visit Diagnoses Not on filedocumented in this encounter"
--- OUTSIDE RECORDS SUMMARY | ~2019-09-25 | XMS | Encounter Summary ---
Demographics + + + | Address | [address] | | | [place] [address] | + + + | Home Phone [...] [place] | | | | | [address] | | + + + + + Care Team Providers + +------+ + | Care Pinion Sorter Name | Role | Phone | [...] hypertension | | | | [address] [place] | [place] [address] | | | | | [place], [place] | [phone] | | | | | [address] | | | | | | [phone] | | | +--------+ + + + [...] 0 | | | | (VITAMIN D-3) [address] | mouth Once a week. | | [...] + + +---------+ + + | [place]-3 Fatty | Take 1,000 mg by | 60 each | 5 | 03/09/20 | | | Acids (FISH OIL | mouth 2 times daily. | | | 15 | 9 | | CONCENTRATE) 1000 MG | | | | | | | CAPS | | | | | | + + + +---------+ + + | [place]-3 Fatty | Take 1,000 mg by | [...] | | | | | [place] | | | | | | [address] | | | | | | | [...] mL/min/1.73m2 | [facility] | | | [place] | RATE,ESTIMATED | | MEDICAL | | | | mL/min/1.53t8Kwlr than | | CENTER - | | [...] | 9.6 | 8.3 - 10.5 | [facility] | | | | | mg/dL | [facility] | | | | | | MEDICAL | | | | | | CENTER - | | | | | | LABORATORY | | + + + + + + | Albumin | 4.1 | 3.2 - 5.0 g/dL | [facility] | | | | | | [facility] | | | | | | [...] [address] | [place] | [phone] | | [facility] | | [address] | | | - LABORATORY | | | | + + + + + documented in this encounter Visit Diagnoses + + | Diagnosis | + + | Essential hypertension Unspecified essential hypertension | + + documented in this encounter"
--- OUTSIDE RECORDS SUMMARY | ~2019-09-25 | XMS | Encounter Summary ---
Demographics + + + | Address | [address] | | | [place] [address] | + + + | Home Phone [...] [place], [place] | | | | | [address] | | + + + + + Care Team Providers + +------+ + | Care Aviation Boatswain'S Mate Name | Role | Phone | + +------+ + PCP | Unavailable | + +------+ + Encounter Details +--------+ + + + + | Date | Type | Department | Care Team | Description | +--------+ + + + + | 02/22/ | Hospital | [facility] | | | | 1996 | Encounter | MED CTR EMERGENCY | | | | | | [address] | | | | | | [place] | | | | | | [address] | | | | | | [phone] | | | +--------+ + + + [...] | | | | [place] | | | | | | [address] | | | | | | | | +--------+---------+ + + + documented as of this encounter Visit Diagnoses Not on filedocumented in this encounter"
[~2019-09-25 13:33] MED LIST changes: +GLIPIZIDE5 MG PO; +GLUCOPHAGE XR500 MG PO
--- OUTSIDE RECORDS SUMMARY | 2019-09-25 13:36 | XMS ---
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 Security Pumper Hand Events No recent Security Events currently on file CRITERIA MET - 6 ED Visits in 6 Months - [facility] - Has Care Guidelines - PDMP - [facility] - 2 Visits in 30 Days CARE PROVIDERS WAYNE CAMARGO Internal Medicine 09/07/2019-Current PHONE: Unknown Kenny Palafox DO Family [facility] Current PHONE: Unknown Jose Ag Family Medicine 01/31/2019-Current PHONE: Unknown [facility] Provider Current PHONE: [phone] Guidelines Source: Vivian - [place] Guidelines Date: 03/13/2019 Care Coordination: Mental health services are being provided by [employer].\T\nbsp; Please contact [employer] with mental health concerns.\T\nbsp; [place]/Philippe Kembanner: \T\nbsp; Moshe: [phone]. Care History Medical/Surgical 09/19/2019 [facility] Patient has follow up appt. with Dr. Camargo on 09/28/19. 07/02/2019 [facility] - PATIENT HAS AN APT WITH OLIVER CANALES ON 07/19/19. 05/08/2019 [facility] - PATIENT HAS A LICENSED OPTICAL DISPENSER - DR DESHAUN ACEVEDO -[facility] [phone]. - PATIENT IS WORKING CLOSELY WITH [employer] IN REGARDS TO PSYCHIATRIC MEDICATIONS. ANY PSYCHIATRIC MED CHANGES AND OR ADJUSTMENTS WILL NEED TO BE REVIEWED BY MEDIA ANALYST AT [facility]. E.Pollo. VISIT COUNT (12 MO.) 20 [facility]. TOTAL 20 NOTE: Visits indicate total known visits. ED/UCC VISIT TRACKING (12 MO.) 09/25/2019 13:35 [place] TYPE: Emergency COMPLAINT: - HEARING VOICES 09/18/2019 13:53 [place] TYPE: Emergency COMPLAINT: - MEDICAL CLEARANCE DIAGNOSES: - 1 Type 2 diabetes mellitus without complications - Schizoaffective disorder, unspecified - Suicidal ideations - Allergy status to oth drug/meds/biol subst status - Gastro-esophageal reflux disease without esophagitis - Old myocardial infarction - continuous churn buttermaker (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 - Essential (primary) hypertension - Rash and other nonspecific skin eruption - Allergy status to sulfonamides status - Other alf (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 09/18/2019 10:33 [place] TYPE: Emergency COMPLAINT: - SUICIDAL THOUGHTS, HEARING VOICES DIAGNOSES: - Disorder of urea cycle metabolism, unspecified - 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 - Schizoaffective disorder, unspecified - Essential (primary) hypertension - 1 Type 2 diabetes mellitus without complications - Gastro-esophageal reflux disease without esophagitis - Old myocardial infarction - Allergy status to sulfonamides status - Allergy status to oth drug/meds/biol subst status - detention (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 09/06/2019 11:40 [place] [place] TYPE: Emergency COMPLAINT: - MEDICAL CLEARANCE DIAGNOSES: - Old myocardial infarction - Essential (primary) hypertension - Allergy status to sulfonamides status - Auditory hallucinations - Other alf (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 - Allergy status to oth drug/meds/biol subst status - 1 Type 2 diabetes mellitus without complications - Gastro-esophageal reflux disease without esophagitis 08/15/2019 15:26 [place] [place] TYPE: Emergency COMPLAINT: - DIZZINESS DIAGNOSES: - Schizoaffective disorder, unspecified - Other alf (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 - 1 Type 2 [...] 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 - Other alf (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 - Allergy status to [...] Allergy status to sulfonamides status - Other alf (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 - Allergy status to [...] status to narcotic agent status - Other alf (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 - Schizophrenia, unspecified 05/10/2019 14:24 [place] TYPE: Emergency COMPLAINT: - MEDICAL CLEARANCE DIAGNOSES: - Acquired absence of other specified parts of digestive tract - 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 - Gastro-esophageal reflux disease without esophagitis - 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 - Allergy status to oth drug/meds/biol subst status - continuous churn buttermaker (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 of 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 - [...] Allergy status to sulfonamides status - Other alf (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 - Essential (primary) hypertension [...] deficits - Old myocardial infarction - 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 - Allergy status to sulfonamides status - Other chest pain 05/02/2019 13:59 [place] TYPE: Emergency COMPLAINT: - VOMITING, CHEST PAIN, WEAKNESS DIAGNOSES: - Allergy status to sulfonamides status - continuous churn buttermaker (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 of 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 - [...] of urea cycle metabolism, unspecified - 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 - Acquired absence of other specified parts of digestive tract - Essential (primary) hypertension 04/03/2019 12:30 [place] [place] TYPE: Emergency COMPLAINT: - TROUBLE BREATHING DIAGNOSES: - Allergy status to oth drug/meds/biol subst status - 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 - Allergy status to [...] tract - Essential (primary) hypertension - 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 - Prsnl hx of [...] Allergy status to sulfonamides status - Other alf (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 - Allergy status to [...] PAIN DIAGNOSES: - Essential (primary) hypertension - detention (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 of 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 - Other alf (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 - Allergy status to [...] without esophagitis - Bariatric surgery status - continuous churn buttermaker (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 - Other alf (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 - Suicidal ideations - [...] MO.) 05/16/2019 11:50 Edil[place] [place] TYPE: Residential COMPLAINT: - SCHIZOAFFECTIVE D/O DIAGNOSES: - Schizoaffective disorder, unspecified [email or web address]
== END 2019-09-25 16:30 | disposition home or self-care (01) ==
LOC: ED 13:33
DX: F25.9 Schizoaffective disorder, unspecified (principal); I10 Essential (primary) hypertension; K21.9 Gastro-esophageal reflux disease without esophagitis; E11.9 Type 2 diabetes mellitus without complications; Z86.73 Personal history of transient ischemic attack (TIA), and cerebral infarction without residual deficits; I25.2 Old myocardial infarction; Z88.2 Allergy status to sulfonamides; Z88.8 Allergy status to other drugs, medicaments and biological substances; Z79.899 Other long term (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; Z79.4 Long term (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
CPT/HCPCS: 36415; 80053; 80176; 81001; 84443; 85025; 99284; G0480

== ENCOUNTER 2019-09-28 13:18 | Emergency (ER) | payer MEDICARE ==
[~2019-09-28] VITALS: Ht 170.2 cm; Wt 134.6 kg
--- OUTSIDE RECORDS SUMMARY | ~2019-09-28 | XMS | Encounter Summary ---
Demographics + + + | Address | [address] | | | [place] [address] | + + + | Home Phone | | + + + | Preferred Language | Unknown | + + + | Marital Status | | + + + | Episcopal Affiliation | 1013 | + + + | Race | Unknown | + + + | Ethnic Group | Unknown | + + + Author + + + | Author | [facility] | | | and [place] | + + + | Organization | [facility] | | | and [place] | + + + | Address | Unknown | + + + | Phone | Unavailable | + + + Support + + + + + | Name | Relationship | Address | Phone | + + + + + | Araceli Sibley | ECON | [place] | | | | | [address] | | + + + + + Care Team Providers + +------+ + | Care Ballistics Expert Name | Role | Phone | + +------+ + | Natalee Andersen NP | PCP | | + +------+ + Reason for Visit +--------+ + | Reason | Comments | +--------+ + | Other | Results | +--------+ + Encounter Details +--------+ + + + + | Date | Type | Department | Care Team | Description | +--------+ + + + + | 03/03/ | Telephone | [facility] | Baudilio Newman | Other (Results) | | 2014 | | NEUROLOGY LAURIE | MD Pollo Need updated | | | | | [address], | address | | | | | [address] [place] | | | | | | [place] [address] | | | | | | [phone] | | | +--------+ + + + + Social History + +-------+ +--------+------+ | Tobacco Use | Types | Packs/Day | Years | Date | | | | | Used | | + +-------+ +--------+------+ | Never Smoker | | | | | + +-------+ +--------+------+ + +---+---+---+ | Smokeless Tobacco: | | | | | Never Used | | | | + +---+---+---+ + + +---------+ + | Alcohol Use | Drinks/Week | oz/Week | Comments | + + +---------+ + | No | | | | + + +---------+ + + + + | Sex Assigned at | Date Recorded | | | | + + + | Not on file | | + + + + + + + | Job Start Date | Occupation | Industry | + + + + | Not on file | Not on file | Not on file | + + + + + + + + | Travel History | Travel Start | Travel End | + + + + + + | No recent travel history available. | + + documented as of this encounter Plan of Treatment +--------+---------+ + + + | Date | Type | Specialty | Care Team | Description | +--------+---------+ + + + | 10/11/ | Office | Cardiology | Desiree Peterson DO | | | 2019 | Visit | | [address] | | | | | | [place] | | | | | | [address] | | | | | | | | +--------+---------+ + + + documented as of this encounter Visit Diagnoses Not on filedocumented in this encounter"
--- OUTSIDE RECORDS SUMMARY | ~2019-09-28 | XMS | Encounter Summary ---
Demographics + + + | Address | [address] | | | [place] [address] | + + + | Home Phone | | + + + | Preferred Language | Unknown | + + + | Marital Status | | + + + | Jehovah'S Witness Affiliation | 1013 | + + + | Race | Unknown | + + + | Ethnic Group | Unknown | + + + Author + + + | Author | [facility] | | | and [place] | + + + | Organization | [facility] | | | and [place] | + + + | Address | Unknown | + + + | Phone | Unavailable | + + + Support + + + + + | Name | Relationship | Address | Phone | + + + + + | Araceli Sibley | ECON | [place] | | | | | [address] | | + + + + + Care Team Providers + +------+ + | Care Staffing And Scheduling Coordinator Name | Role | Phone | + +------+ + | Adriano Patrick MD | PCP | | + +------+ + Reason for Visit +--------+ + | Reason | Comments | +--------+ + | Other | Questions about coverage. | +--------+ + Encounter Details +--------+ + + + + | Date | Type | Department | Care Team | Description | +--------+ + + + + | 08/08/ | Telephone | [facility] | Ashley Chávez | Other (Questions | | 2019 | | CARDIOLOGY [place] | Pollo, Plasterer Stucco | about coverage. ) | | | | [address] | | | | | | [place] | | | | | | [address] | | | | | | [phone] | | | +--------+ + + + [...] | | | | | [place] | | | | | | [address] | | | | | | | | +--------+---------+ + + + documented as of this encounter Visit Diagnoses Not on filedocumented in this encounter"
--- OUTSIDE RECORDS SUMMARY | ~2019-09-28 | XMS | Encounter Summary ---
Demographics + + + | Address | [address] | | | [place] [address] | + + + | Home Phone | | + + + | Preferred Language | Unknown | + + + | Marital Status | | + + + | Orthodoxy Affiliation | 1013 | + + + | Race | Unknown | + + + | Ethnic Group | Unknown | + + + Author + + + | Author | [facility] | | | and [place] | + + + | Organization | [facility] | | | and [place] | + + + | Address | Unknown | + + + | Phone | Unavailable | + + + Support + + + + + | Name | Relationship | Address | Phone | + + + + + | Araceli Sibley | ECON | [place] | | | | | [address] | | + + + + + Care Team Providers + +------+ + | Care Wood Grainer Name | Role | Phone | + [...] | 08/05/ | Telephone | [facility] | Frandy Teresa, | Other | | 2013 | | NE[address]OSURGERY [address] | DO [address] | | | | | [address] | [address] [place], [place] | | | | | [place], [place] | [id number] | | | | | [address] | | | | | | [phone] | | | +--------+ + + + [...] | | | | | [place] | | | | | | [address] | | | | | | | | +--------+---------+ + + + documented as of this encounter Visit Diagnoses Not on filedocumented in this encounter"
--- OUTSIDE RECORDS SUMMARY | ~2019-09-28 | XMS | Encounter Summary ---
Demographics + + + | Address | [address] | | | [place] [address] | + + + | Home Phone | | + + + | Preferred Language | Unknown | + + + | Marital Status | | + + + | Baptist Affiliation | 1013 | + + + | Race | Unknown | + + + | Ethnic Group | Unknown | + + + Author + + + | Author | [facility] | | | and [place] | + + + | Organization | [facility] | | | and [place] | + + + | Address | Unknown | + + + | Phone | Unavailable | + + + Support + + + + + | Name | Relationship | Address | Phone | + + + + + | Araceli Sibley | ECON | [place] | | | | | [address] | | + + + + + Care Team Providers + +------+ + | Care Forensic Anthropologist Name | Role | Phone | + +------+ + | Natalee Andersen NP | PCP | | + +------+ + Reason for Visit +--------+ + | Reason | Comments | +--------+ + | Other | multiple questions | +--------+ + Encounter Details +--------+ + + + + | Date | Type | Department | Care Team | Description | +--------+ + + + + | 07/29/ | Telephone | [facility] | Frandy Teresa, | Other (multiple | | 2013 | | NEUROSURGERY [address] | DO [address] | questions) | | | | [address] | [address] [place], [place] | | | | | [place], [place] | [address] | | | | | [address] | | | | | | [phone] | | | +--------+ + + + [...] | | | | | [place] | | | | | | [address] | | | | | | | | +--------+---------+ + + + documented as of this encounter Visit Diagnoses Not on filedocumented in this encounter"
--- OUTSIDE RECORDS SUMMARY | ~2019-09-28 | XMS | Encounter Summary ---
Demographics + + + | Address | [address] | | | [place] [address] | + + + | Home Phone [...] [place] | | | | | [address] | | + + + + + Care Team Providers + +------+ + | Care Mold Chipper Name | Role | Phone | + [...] | | | | | pain, | [place], [place] | | | | | | bilateral | [address] | | | | | | Degenerative | Phone: | | | | | | disc | [phone] | | | | | | disease, | Fax: | | | | | | lumbar | [phone] | | | | | | Spinal [...] [address] | [address] [place], [place] | (Primary Dx); Knee | | | | [place], [place] | [address] | pain, bilateral; | | | | [address] | | DEGENERATIVE DISC | | | | [phone] | | DISEASE, LUMBAR | | | [...] | | | | | [place] | | | | | | [id number] | | | | | | | [...]
--- OUTSIDE RECORDS SUMMARY | ~2019-09-28 | XMS | Encounter Summary ---
Demographics + + + | Address | [address] | | | [place] [address] | + + + | Home Phone [...] [place] | | | | | [address] | | + + + + + Care Team Providers + +------+ + | Care Family Life Educator Name | Role | Phone | + +------+ + | Adriano Patrick MD | PCP | | + +------+ + Reason for Visit +--------+ + | Reason | Comments | +--------+ + | Other | Patient is worried about paying for monitor. | +--------+ + Encounter Details +--------+ + + + + | Date | Type | Department | Care Team | Description | +--------+ + + + + | 07/24/ | Telephone | [facility] | Ashley Chávez | Other (Patient is | | 2019 | | CARDIOLOGY [place] Abad, Privacy Attorney | worried about paying | | | | [address] | | for monitor. ) | | | | [place] | | | | | | [address] | | | | | | [phone] | | | +--------+ + + + [...] | 10/11/ | Office | Cardiology | Desriee Peterson DO | | | 2019 | Visit | | [address] | | | | | | [place] | | | | | | [address] | | | | | | | | +--------+---------+ + + + documented as of this encounter Visit Diagnoses Not on filedocumented in this encounter"
--- OUTSIDE RECORDS SUMMARY | ~2019-09-28 | XMS | Encounter Summary ---
Demographics + + + | Address | [address] | | | [place] [address] | + + + | Home Phone [...] [place] | | | | | [address] | | + + + + + Care Team Providers + +------+ + | Care Engineer Design And Construction Name | Role | Phone | + [...] + | 09/10/ | Documentati | [facility] | Katharine Moncada, | Other (urgent | | 2019 | on | CARDIOLOGY [place] | Technologist | report) | | | | [address] | | | | | | [place] | | | | | | [address] | | | | | | [phone] | | | +--------+ + + + [...] [place] | | | | | | [address] | | | | | | | | +--------+---------+ + + + documented as of this encounter Visit Diagnoses Not on filedocumented in this encounter"
--- OUTSIDE RECORDS SUMMARY | ~2019-09-28 | XMS | Encounter Summary ---
Demographics + + + | Address | [address] | | | [place] [address] | + + + | Home Phone | | + + + | Preferred Language | Unknown | + + + | Marital Status | | + + + | Voodoo Affiliation | 1013 | + + + | Race | Unknown | + + + | Ethnic Group | Unknown | + + + Author + + + | Author | [facility] | | | and [place] | + + + | Organization | [facility] | | | and [place] | + + + | Address | Unknown | + + + | Phone | Unavailable | + + + Support + + + + + | Name | Relationship | Address | Phone | + + + + + | Araceli Sibley | ECON | [place] | | | | | [address] | | + + + + + Care Team Providers + +------+ + | Care Batch Mixing Truck Driver Name | Role | Phone | + [...] + + | 08/20/ | Documentati | [facility] | Katharine Moncada, | Other (urgent | | 2019 | on | CARDIOLOGY [place] | Technologist | report) | | | | [address] | | | | | | [place] | | | | | | [address] | | | | | | [phone] | | | +--------+ + + + [...] [place] | | | | | | [address] | | | | | | | | +--------+---------+ + + + documented as of this encounter Visit Diagnoses Not on filedocumented in this encounter"
--- OUTSIDE RECORDS SUMMARY | ~2019-09-28 | XMS | Encounter Summary ---
Demographics + + + | Address | [address] | | | [place] [address] | + + + | Home Phone [...] [place] | | | | | [address] | | + + + + + Care Team Providers + +------+ + | Care Bottle Packer Name | Role | Phone | + +------+ + | Natalee Andersen NP | PCP | | + +------+ + Encounter Details +--------+ + + + + | Date | Type | Department | Care Team | Description | +--------+ + + + + | 06/25/ | Hospital | [facility] | Latricia Feliciano | | | 2014 | Encounter | MED CTR ACUTE | D, PT [address] | | | | | PHYSICAL THERAPY | NEFTALIE [place] | | | | | [address] | [address] | | | | | [place] [address] | | | | | | [phone] | | | +--------+ + + + [...] + + + +---------+ + + | Paxico-3 Fatty | Take 1,000 mg by | [...] [place] | | | | | | [address] | | | | | | | | +--------+---------+ + + + documented as of this encounter Visit Diagnoses Not on filedocumented in this encounter"
--- OUTSIDE RECORDS SUMMARY | ~2019-09-28 | XMS | Encounter Summary ---
Demographics + + + | Address | [address] | | | [place] [address] | + + + | Home Phone [...] [place] | | | | | [address] | | + + + + + Care Team Providers + +------+ + | Care Grapple Skidder Operator Name | Role | Phone | + +------+ + | Ardiano Patrick MD | PCP | | + +------+ + Reason for Visit +--------+ + | Reason | Comments | +--------+ + | Other | urgent report | +--------+ + Encounter Details +--------+ + + + + | Date | Type | Department | Care Team | Description | +--------+ + + + + | 08/20/ | Documentati | [facility] | Katharine Moncada, | Other (urgent | | 2019 | on | CARDIOLOGY [place] | Technologist | report) | | | | [address] | | | | | | [place] | | | | | | [address] | | | | | | [phone] | | | +--------+ + + + [...] [place] | | | | | | [address] | | | | | | | | +--------+---------+ + + + documented as of this encounter Visit Diagnoses Not on filedocumented in this encounter"
--- OUTSIDE RECORDS SUMMARY | ~2019-09-28 | XMS | Encounter Summary ---
Demographics + + + | Address | [address] | | | [place] [address] | + + + | Home Phone [...] [place] | | | | | [address] | | + + + + + Care Team Providers + +------+ + | Care Lining Stuffer Name | Role | Phone | + [...] | SLEEP DISORDER [address] | [address] | | | | | [address] [place] | [place], [place] | | | | | [place] [address] | [address] | | | | | [phone] | | | +--------+ + + + [...] documented as of this encounter Progress Notes Russell Alfaro PA - 05/11/2016 4:27 PM PDTPat was [...] in this enc ounter Plan of Treatment +--------+---------+ + + + | Date | Type | Specialty | Care Team | Description | +--------+---------+ + + + | 10/11/ | Office | Cardiology | Desiree Peetrson DO | | | 2019 | Visit | | [address] | | | | | | [place] | | | | | | [id number] | | | | | | | | +--------+---------+ + + + documented as of this encounter Visit Diagnoses Not on filedocumented in this encounter"
--- OUTSIDE RECORDS SUMMARY | ~2019-09-28 | XMS | Encounter Summary ---
Demographics + + + | Address | [address] | | | [place] [address] | + + + | Home Phone | | + + + | Preferred Language | Unknown | + + + | Marital Status | Single | + + + | Spiritism Affiliation | Unknown | + + + | Race | White | + + + | Ethnic Group | Not or | + + + Author + + + | Author | [facility] | + + + | Organization | [facility] | + + + | Address | Unknown | + + + | Phone | Unavailable | + + + Support + + + + + | Name | Relationship | Address | Phone | + + + + + | Kelsy Bautista | ECON | [address] | | | | | [place] | | | | | [address] | | + + + + + Care Team Providers + +------+ + | Care Warehousing Technician Name | Role | Phone | [...] [id number] | | | | | | [place], [place] | | | | | | [address] | | | | | | [phone] | | | +--------+ + + + [...] + + + + + | [facility] | [address] | [place] [address] | | | PATHOLOGY | [address] [...] Re | | | | | | [phone] | | | | + + + + + + + + | Specimen | + + | | + + + + + + + | Performing | Address | City/State/Zipcode | Phone Number | | Organization | | | | + + + + + | [facility] | [address] | [place] [address] | | | PATHOLOGY | [address] [...] Re | | | | | | [phone] | | | | + + + + + + + + | Specimen | + + | | + + + + + + + | Performing | Address | City/State/Zipcode | Phone Number | | Organization | | | | + + + + + | [facility] | [address] | [place] [address] | | | PATHOLOGY | [address] [...] Re | | | | | | [phone] | | | | + + + + + + + + | Specimen | + + | | + + + + + + + | Performing | Address | City/State/Zipcode | Phone Number | | Organization | | | | + + + + + | [facility] | [address] | [place] [address] | | | PATHOLOGY | [address] [...] Re | | | | | | [phone] | | | | + + + + + + + + | Specimen | + + | | + + + + + + + | Performing | Address | City/State/Zipcode | Phone Number | | Organization | | | | + + + + + | [facility] | [address] | [place] [address] | | | PATHOLOGY | [address] | | | + + + + + documented in this encounter Visit Diagnoses Not on filedocumented in this encounter"
--- OUTSIDE RECORDS SUMMARY | ~2019-09-28 | XMS | Encounter Summary ---
Demographics + + + | Address | [address] | | | [place] [address] | + + + | Home Phone | | + + + | Preferred Language | Unknown | + + + | Marital Status | | + + + | Anabaptism Affiliation | 1013 | + + + [...] [place] | | | | | [address] | | + + + + + Care Team Providers + +------+ + | Care Floor Renovator Name | Role | Phone | + +------+ + | Adriano Patrick MD | PCP | | + +------+ + Reason for Visit +--------+ + | Reason | Comments | +--------+ + | Other | Called to tell patient what Dr Peterson said. | +--------+ + Encounter Details +--------+ + + + + | Date | Type | Department | Care Team | Description | +--------+ + + + + | 08/16/ | Telephone | [facility] | Ashley Chávez | Other (Called to | | 2018 | | CARDIOLOGY [place] | Pollo, Power Technician | tell patient what | | | | [address] | | Nicholas said. ) | | | | [address] | | | | | | [place] | | | | | | [address] | | | | | | [phone] | | | +--------+ + + + [...] Description | +--------+---------+ + + + | 12/19/ | Office | Cardiology | Desiree Peterson DO | | | 2019 | Visit | | [address] | | | | | | [place] | | | | | | [address] | | | | | | | | +--------+---------+ + + + documented as of this encounter Visit Diagnoses Not on filedocumented in this encounter"
--- OUTSIDE RECORDS SUMMARY | ~2019-09-28 | XMS | Clinical Summary ---
Demographics + + + | Address | [address] | | | [place] [address] | + + + | Home Phone | | + + + | Preferred Language | Unknown | + + + | Marital Status | Single | + + + | Orthodox Affiliation | Unknown | + + + [...] [place] | | | | | [address] | | + + + + + Care Team Providers + +------+ + | Care Workforce Management Coordinator Name | Role | Phone | + +------+ + PCP | Unavailable | + +------+ + Source Comments EDWARD is fully live on both [facility] and [facility] InPatient.[facility] Allergies Not on File Medications Not [...] | [facility] | xxxxxxxxxx | 02/22/20 | [phone] | [address] | [facility] | | | RE A & | | [address] | [address] | [address] | [address] | | | [address] | | sent | | [place] | | | | | | | | [address] | | + +--------+ +--------+ + +--------+ + +--------+ +--------+ + + | Guarantor Name | Accoun | Relation to | Date | Phone | Billing Address | | | t Type | Patient | of | | | | | | | | | | + +--------+ +--------+ + + | CINDY ARNDT | Person | Self | [birth year] | [address] | | al/Fam | | 1955 | [phone] | [address] [place] | | | devonte | | | 5 (Home) | [address] | + +--------+ +--------+ + +"
--- OUTSIDE RECORDS SUMMARY | ~2019-09-28 | XMS | Encounter Summary ---
Demographics + + + | Address | [address] | | | [place] [address] | + + + | Home Phone | | + + + | Preferred Language | Unknown | + + + | Marital Status | | + + + | Alevism Affiliation | 1013 | + + + | Race | Unknown | + + + | Ethnic Group | Unknown | + + + Author + + + | Author | [facility] | | | and [place] | + + + | Organization | [facility] | | | and [place] | + + + | Address | Unknown | + + + | Phone | Unavailable | + + + Support + + + + + | Name | Relationship | Address | Phone | + + + + + | Araceli Sibley | ECON | [place], [place] | | | | | [address] | | + + + + + Care Team Providers + +------+ + | Care Junior Network Administrator Name | Role | Phone | + +------+ + PCP | Unavailable | + +------+ + Encounter Details +--------+ + + + + | Date | Type | Department | Care Team | Description | +--------+ + + + + | 01/26/ | Hospital | [facility] | Dale, Heath E A, | | | 2012 | Encounter | MED CTR XRAY [address] | MD [address] | | | | | [place] | [place] | | | | | [place] [address] | [address] | | | | | [phone] | | | +--------+ + + + [...] [place] | | | | | | [address] | | | | | | | | +--------+---------+ + + + documented as of this encounter Procedures + +--------+ + + + | Procedure Name | Priori | Date/Time | Associated Diagnosis | Comments | | | ty | | | | + +--------+ + + + | XR KNEE BILATERAL 3 | | 01/27/2012 | | Results for this | | OR 4 VWS | | 1:44 PM | | procedure are in the | | | | PDT | | results section. | + +--------+ + + + documented in this encounter Results XR Knee Bilateral 3 or 4 Vws (01/27/2012 1:44 PM PDT) + + | Specimen | + + | | + + + + + | Narrative | Performed At | + + + | [facility] Diagnostic Imaging Department | [facility] | | [address] | [facility] | | BILATERAL KNEES, THREE VIEWS: | DIAG IMG | | 01/27/2012 CLINICAL HISTORY: DEGENERATIVE JOINT DISEASE. | | | COMPARISON: None. FINDINGS: An intramedullary rajesh is | | | present within the imaged proximal right tibia, with two proximal | | | anchoring screws. A healed appearing proximal right fibular | | | diaphyseal fracture is suggested. The bones are well mineralized, | | | without suspicion for recent fracture or dislocation. The medial | | | femoral tibial joint compartments are moderately narrowed | | | bilaterally, while the lateral compartments appear maintained. The | | | patellae are slightly lateralized in position bilaterally and there | | | is moderate chandana rowing of the lateral facets at the patellofemoral | | | joints, with early marginal osteophyte formation. A small to | | | moderate suprapatellar right knee effusion is suggested, while no | | | conclusive left knee ef fusion is visible. Soft tissue structures | | | are otherwise unremarkable. IMPRESSION: 1. LATERALIZED | | | POSITIONS OF THE PATELLAE AND ASYMMETRIC NARROWING OF THE LATERAL | | | FACETS AT THE PICKENS LOFEMORAL JOINTS, POTENTIALLY REFLECTING SEQUELA | | | OF CHRONIC ABNORMAL PATELLAR TRACKING. 2. MODERATE BILATERAL | | | MEDIAL FEMOROTIBIAL JOINT COMPARTMENT NARROWING. 3. RIGHT | | | KNEE EFFUSION. 4. INCOMPLETELY IMAGED RIGHT TIBIAL ORIF | | | HARDWARE. Dictated Date/Time: 01/27/2012 17:12 Transcribed | | | Date/Time: 01/27/2012 17:18 Zigzag Machine Operator: | | | <Electronically Signed by Willie Perry MD> 01/27/12 0414 | | + + + + + | Procedure Note | + + | Juan, Rad Conversion - 11/30/2013 5:03 PM [facility] | | Diagnostic Imaging Department [address] [place] [address] | | BILATERAL KNEES, THREE VIEWS: 01/27/2012 CLINICAL | | HISTORY: DEGENERATIVE JOINT DISEASE. COMPARISON: None. FINDINGS: An | | intramedullary rajesh is present within the imaged proximal right tibia, with two proximal | | anchoring screws. A healed appearing proximal right fibular diaphyseal fracture is | | suggested. The bones are well mineralized, without suspicion for recent fracture or | | dislocation. The medial femoral tibial joint compartments are moderately narrowed | | bilaterally, while the lateral compartments appear maintained. The patellae are | | slightly lateralized in position bilaterally and there is moderate narrowing of the | | lateral facets at the patellofemoral joints, with early marginal osteophyte formation. | | A small to moderate suprapatellar right knee effusion is suggested, while no conclusive | | left knee effusion is visible. Soft tissue structures are otherwise unremarkable. | | IMPRESSION: 1. LATERALIZED POSITIONS OF THE PATELLAE AND ASYMMETRIC NARROWING OF THE | | LATERAL FACETS AT THE PATELLOFEMORAL JOINTS, POTENTIALLY REFLECTING SEQUELA OF CHRONIC | | ABNORMAL PATELLAR TRACKING. 2. MODERATE BILATERAL MEDIAL FEMOROTIBIAL JOINT | | COMPARTMENT NARROWING. 3. RIGHT KNEE EFFUSION. 4. INCOMPLETELY IMAGED RIGHT TIBIAL | | ORIF HARDWARE. Dictated Date/Time: 01/27/2012 17:12Transcribed Date/Time: | | 01/27/2012 17:18Transcriptionist: <Electronically Signed by Willie Perry MD> | | 01/27/122253 | | | |IMPRESSION: | |1. LATERALIZED POSITIONS OF THE PATELLAE AND ASYMMETRIC NARROWING OF THE LATERAL FACETS AT THE PICKENS | |LOFEMORAL JOINTS, POTENTIALLY REFLECTING SEQUELA OF CHRONIC ABNORMAL PATELLAR TRACKING. | | | |2. MODERATE BILATERAL MEDIAL FEMOROTIBIAL JOINT COMPARTMENT NARROWING. | | | |3. RIGHT KNEE EFFUSION. | | | |4. INCOMPLETELY IMAGED RIGHT TIBIAL ORIF HARDWARE. | | | |Dictated Date/Time: 01/27/2012 17:12 | |Transcribed Date/Time: 01/27/2012 17:18 | |Zigzag Machine Operator: | |<Electronically Signed by Willie Perry MD> 01/27/12 133 | + + + +---------+ + + | Performing | Address | City/State/Zipcode | Phone Number | | Organization | | | | + +---------+ + + | [place] | | | | | [place] | | | | + +---------+ + + documented in this encounter Visit Diagnoses Not on filedocumented in this encounter"
--- OUTSIDE RECORDS SUMMARY | ~2019-09-28 | XMS | Encounter Summary ---
Demographics + + + | Address | [address] | | | [place] [address] | + + + | Home Phone [...] [place], [place] | | | | | [address] | | + + + + + Care Team Providers + +------+ + | Care Scribing Machine Operator Name | Role | Phone | + +------+ + PCP | Unavailable | + +------+ + Encounter Details +--------+ + + + + | Date | Type | Department | Care Team | Description | +--------+ + + + + | 12/27/ | Hospital | [facility] | | | | 1997 | Encounter | MED CTR EMERGENCY | | | | | | [address] | | | | | | [place] | | | | | | [address] | | | | | | [phone] | | | +--------+ + + + [...] | | | | | [place] | | | | | | [address] | | | | | | | | +--------+---------+ + + + documented as of this encounter Visit Diagnoses Not on filedocumented in this encounter"
--- OUTSIDE RECORDS SUMMARY | ~2019-09-28 | XMS | Encounter Summary ---
Demographics + + + | Address | [address] | | | [place] [address] | + + + | Home Phone | | + + + | Preferred Language | Unknown | + + + | Marital Status | | + + + | Worship Affiliation | 1013 | + + + [...] [place] | | | | | [address] | | + + + + + Care Team Providers + +------+ + | Care Research Fellow Name | Role | Phone | + [...] + + | 08/30/ | Telephone | [facility] | Ashley Chávez | Other (Patient wants | | 2019 | | [facility]ARDIOLOGY [place] | Pollo, Financial Accounting Manager | to take monitor | | | | [address] | | off. ) | | | | [address] | | | | | | [place] | | | | | | [address] | | | | | | [phone] | | | +--------+ + + + [...] [place] | | | | | | [address] | | | | | | | | +--------+---------+ + + + documented as of this encounter Visit Diagnoses Not on filedocumented in this encounter"
--- OUTSIDE RECORDS SUMMARY | ~2019-09-28 | XMS | Clinical Summary ---
Demographics + + + | Address | [address] | | | [place] [address] | + + + | Home Phone | | + + + | Preferred Language | Unknown | + + + | Marital Status | Single | + + + | Church Affiliation | Unknown | + + + | Race | Unknown | + + + | Ethnic Group | Unknown | + + + Author + + + | Author | [facility] (Historical as of | | | 06-09-19) | + + + | Organization | [facility] (Historical as of | | | 06-09-19) | + + + | Address | Unknown | + + + | Phone | Unavailable | + + + Support + + +---------+ + | Name | Relationship | Address | Phone | + + +---------+ + | Araceli Sibley | ECON | Unknown | | + + +---------+ + Care Team Providers + +------+ + | Care Director Broadcast Name | Role | Phone | + +------+ + | Jose Ag MD | PP | | + +------+ + Allergies + [...] | Other (See Comments) | Medium | 02/23/20 | Diaphoresis, and | | | | | 19 | complete muscle | | | | | | weakness. | + + + + + + | Meperidine | Nausea and Vomiting | Low | 02/21/20 | | | | | | 19 | | + + + + + + | Cyclobenzaprine | Confusion | Low | 02/21/20 | | | | | | 19 | | + + + + + + | Haloperidol | Other (See Comments) | Medium | 02/21/20 | Mind altering | | | | | 19 | | + + + + + + | Promethazine | Other (See Comments) | Medium | 02/21/20 | Makes her skin | | | | | 19 | crawl | + + + + + + | Fluoxetine | Other (See Comments) | Medium | 02/21/20 | Mind was racing | | | | | 19 | | + + + + + + | Sulfa Antibiotics | Hives | High | 02/21/20 | | | | | | 19 | | + + + + + + Current Medications + + +-------+---------+------+------+-------+ | Prescription | Sig. | Disp. | Refills | Star | End | Statu | | | | | | t | Date | s | | | | | | Date | | | + + +-------+---------+------+------+-------+ | hydrOXYzine | Take 100 mg by mouth | | | | | Activ | | (VISTARIL) 50 MG | 3 (three) times | | | | | e | | capsule | daily as needed for | | | | | | | | Itching. | | | | | | + + +-------+---------+------+------+-------+ | Blood Glucose | by Does not apply | | | | | Activ | | Monitoring Suppl | route. | | | | | e | | (ONETOUCH VERIO FLEX | | | | | | | | SYSTEM) w/Device | | | | | | | | KIT | | | | | | | + + +-------+---------+------+------+-------+ | OLANZapine | Take 10 mg by mouth | | | | | Activ | | (ZYPREXA) 10 MG | nightly. | | | | | e | | tablet | | | | | | | + + +-------+---------+------+------+-------+ | Calcium Carbonate | Take 1,000 mg by | | | | | Activ | | Antacid 1000 MG | mouth 3 (three) | | | | | e | | tablet | times daily. | | | | | | + + +-------+---------+------+------+-------+ | atenolol | Take 50 mg by mouth | | | | | Activ | | (TENORMIN) 50 MG | daily. | | | | | e | | tablet | | | | | | | + + +-------+---------+------+------+-------+ | acetaminophen | Take 325 mg by mouth | | | | | Activ | | (MAPAP) 325 MG | every 6 (six) hours | | | | | e | | tablet | as needed for Pain. | | | | | | + + +-------+---------+------+------+-------+ | clonazePAM | Take 0.5 mg by mouth | | | | | Activ | | (KLONOPIN) 0.5 MG | 2 (two) times daily | | | | | e | | tablet | as needed for | | | | | | | | Anxiety. | | | | | | + + +-------+---------+------+------+-------+ | loperamide | Take 2 mg by mouth 4 | | | | | Activ | | (IMODIUM) 2 MG | (four) times daily | | | | | e | | capsule | as needed for | | | | | | | | Diarrhea. | | | | | | + + +-------+---------+------+------+-------+ | PARoxetine (PAXIL) | Take 20 mg by mouth | | | | | Activ | | 20 MG tablet | every morning. | | | | | e | + + +-------+---------+------+------+-------+ | albuterol | Inhale 2 puffs into | | | | | Activ | | (PROVENTIL | the lungs every 4 | | | | | e | | HFA;VENTOLIN HFA) | (four) hours as | | | | | | | 108 (90 Base) | needed for Wheezing. | | | | | | | MCG/ACT inhaler | | | | | | | + + +-------+---------+------+------+-------+ | Cholecalciferol | Take by mouth once | | | | | Activ | | (VITAMIN D3) 28179 | a week. | | | | | e | | units CAPS | | | | | | | + + +-------+---------+------+------+-------+ | cyanocobalamin | Take 1,000 mcg by | | | | | Activ | | (VITAMIN B-12) 1000 | mouth daily. | | | | | e | | MCG tablet | | | | | | | + + +-------+---------+------+------+-------+ | Thiamine HCl | Take by mouth. | | | | | Activ | | (VITAMIN B-1 PO) | | | | | | e | + + +-------+---------+------+------+-------+ | amitriptyline | Take 50 mg by mouth | | | | | Activ | | (ELAVIL) 50 MG | nightly. | | | | | e | | tablet | | | | | | | + + +-------+---------+------+------+-------+ | | Inhale 2 puffs into | | | | | Activ | | budesonide-formotero | the lungs 2 (two) | | | | | e | | l (SYMBICORT) | times daily. | | | | | | | 160-4.5 MCG/ACT | | | | | | | | inhaler | | | | | | | + + +-------+---------+------+------+-------+ Active Problems + + + | Problem | Noted Date | + + + | Anemia | 02/22/2019 | + + + | Anxiety | 02/22/2019 | + + + | Lumbar back pain | 02/22/2019 | + + + | Degenerative disc disease, lumbar | 02/22/2019 | + + + | Depression | 02/22/2019 | + + + | Disturbance of skin sensation | 02/22/2019 | + + + | Gastric reflux | 02/22/2019 | + + + | Hypothyroidism | 02/22/2019 | + + + | Impaired fasting glucose | 02/22/2019 | + + + | Neuropathy | 02/22/2019 | + + + | Bradycardia | 11/04/2015 | + + + | Benign essential HTN | 05/24/2014 | + + + | Chest pain, unspecified | 05/24/2014 | + + + + + | Overview: Overview: | | replaced due to ICD-10 go-live | + + + + + | Hyperlipidemia | 05/24/2014 | + + + | Bipolar affective disorder (HCC) | 04/13/2013 | + + + | Dyslipidemia | 04/13/2013 | + + + | Fatty liver disease, nonalcoholic | 04/13/2013 | + + + | Female stress incontinence | 04/13/2013 | + + + | Hypertension | 04/13/2013 | + + + | Morbid obesity (HCC) | 04/13/2013 | + + + | Obstructive sleep apnea | 04/13/2013 | + + + + + | Overview: Overview: | | CPAP | + + + + + | Schizoaffective disorder (HCC) | 04/13/2013 | + + + | T2DM (type 2 diabetes mellitus) ([facility]) | 04/13/2013 | + + + Immunizations + + + + | Name | Dates Previously Given | Next Due | + + + + | Pneumococcal | 05/29/2013 | | | Polysaccharide | | | | 23-valent | | | + + + + Family History + + +------+ + | Medical History | Relation | Name | Comments | + + +------+ + | Hypertension | Father | | | + + +------+ + | Heart disease | Mother | | | + + +------+ + | Hypertension | Mother | | | + + +------+ + + +------+--------+ + | Relation | Name | Status | Comments | + +------+--------+ + | Father | | Alive | | + +------+--------+ + | Mother | | Alive | | + +------+--------+ + Social History + +-------+ +--------+------+ | [...] Filed Vital Signs + + + + | Vital Sign | Reading | Time Taken | + + + + | Blood Pressure | 112/76 | 04/19/2019 1:03 PM PDT | + + + + | Pulse | 83 | 04/19/2019 1:03 PM PDT | + + + + | Temperature | - | - | + + + + | Respiratory Rate | - | - | + + + + | Oxygen Saturation | 93% | 04/19/2019 1:03 PM PDT | + + + + | Inhaled Oxygen | - | - | | Concentration | | | + + + + | Weight | 132.9 kg (293 lb) | 04/19/2019 1:03 PM PDT | + + + + | Height | 170.2 cm (5' 7") | 04/19/2019 1:03 PM PDT | + + + + | Body Mass Index | 45.89 | 04/19/2019 1:03 PM PDT | + + + + Plan of Treatment + + + + + | Health Maintenance | Due Date | Last Done | Comments | + + + + + | Diabetic Eye Exam | | | | | | 5 | | | + + + + + | Diabetic Foot Exam | | | | | | 5 | | | + + + + + | Hemoglobin A1c | | | | | | 5 | | | + + + + + | Microalbumin | | | | | Screening | 5 | | | + + + + + | Vaccine: | | | | | Dtap/Tdap/Td (1 - | 4 | | | | Tdap) | | | | + + + + + | Cervical Cancer | | | | | Screening (Pap) | 5 | | | + + + + + | Breast Cancer | | | | | Screening | 5 | | | | (Mammogram) | | | | + + + + + | Colon Cancer | | | | | Screening [...] | Pneumococcal 19-64 | | | | | (PPSV23 only) Medium | | | | | Risk | | | | + + + + + Results Not on filefrom Last 3 Months Insurance + +--------+ +------+-------+ + | Payer | Benefi | Subscriber | Type | Phone | Address | | | t Plan | ID | | | | | | / | | | | | | | Group | | | | | + +--------+ +------+-------+ + | MEDICARE | MEDICA | [id number] | | | [address] | | | RE | | | | [place] [phone] | | | IP-OP | | | | | + +--------+ +------+-------+ + + +--------+ +--------+ + + | Guarantor Name | Accoun | Relation to | Date | Phone | Billing Address | | | t Type | Patient | of | | | | | | | | | | + +--------+ +--------+ + + | CINDY ARNDT | Person | Self [birth year] Home: | [address] | | | al/Fam | | [phone] | [phone] [address] [place] | | | [place]onte | | [phone] | + +--------+ +--------+ + +
--- OUTSIDE RECORDS SUMMARY | ~2019-09-28 | XMS | Encounter Summary ---
Demographics + + + | Address | [address] | | | [place] [address] | + + + | Home Phone [...] [place] | | | | | [address] | | + + + + + Care Team Providers + +------+ + | Care Distillery Worker Name | Role | Phone | + +------+ + | Basim Bolanos MD | PCP | | + +------+ + Encounter Details +--------+ + + + + | Date | Type | Department | Care Team | Description | +--------+ + + + + | 03/01/ | Abstract | [facility] [place] | [facility], | | | 2012 | | GASTROENTEROLOGY | [place] [address] | | | | | [address] | [place], [address] | | | | | [address] [place], [place] | [place], [place] | | | | | [address] | [address] | | | | | [phone] | | | +--------+ + + + [...] [place] | | | | | | [address] | | | | | | | | +--------+---------+ + + + documented as of this encounter Visit Diagnoses Not on filedocumented in this encounter"
--- OUTSIDE RECORDS SUMMARY | ~2019-09-28 | XMS | Encounter Summary ---
Demographics + + + | Address | [address] | | | [place] [address] | + + + | Home Phone [...] [place] | | | | | [address] | | + + + + + Care Team Providers + +------+ + | Care Safety Compliance Specialist Name | Role | Phone | [...] + + | 08/22/ | Documentati | [facility] | Katharine Moncada, | Other (urgent | | 2019 | on | CARDIOLOGY [place] | Technologist | report) | | | | [address] | | | | | | [place] | | | | | | [address] | | | | | | [phone] | | | +--------+ + + + [...] [place] | | | | | | [address] | | | | | | | | +--------+---------+ + + + documented as of this encounter Visit Diagnoses Not on filedocumented in this encounter"
--- OUTSIDE RECORDS SUMMARY | ~2019-09-28 | XMS | Encounter Summary ---
Demographics + + + | Address | [address] | | | [place] [address] | + + + | Home Phone [...] [place], [place] | | | | | [address] | | + + + + + Care Team Providers + +------+ + | Care Progressive Die Maker Name | Role | Phone | + +------+ + PCP | Unavailable | + +------+ + Encounter Details +--------+ + + + + | Date | Type | Department | Care Team | Description | +--------+ + + + + | 04/16/ | [facility] | [facility] | Deon Gonzales | | | 2005 | Encounter | MED CTR SLEEP | MD [place] | | | | | [place] [address] [place] [place] | [place] | | | | | [place], [place] | [place] [address] | | | | | [address] | [phone] | | | | | [phone] | | | +--------+ + + + [...] [place] | | | | | | [address] | | | | | | | | +--------+---------+ + + + documented as of this encounter Visit Diagnoses Not on filedocumented in this encounter"
--- OUTSIDE RECORDS SUMMARY | ~2019-09-28 | XMS | Encounter Summary ---
Demographics + + + | Address | [address] | | | [place] [address] | + + + | Home Phone | | + + + | Preferred Language | Unknown | + + + | Marital Status | | + + + | Faith Affiliation | 1013 | + + + | Race | Unknown | + + + | Ethnic Group | Unknown | + + + Author + + + | Author | [facility] | | | and [place] | + + + | Organization | [facility] | | | and [place] | + + + | Address | Unknown | + + + | Phone | Unavailable | + + + Support + + + + + | Name | Relationship | Address | Phone | + + + + + | Araceli Sibley | ECON | [place] | | | | | [address] | | + + + + + Care Team Providers + +------+ + | Care Livestock Trucker Name | Role | Phone | + [...] [address] | [address] [place], [place] | Anxiety; Anemia; | | | | [place] | [address] | Irregular heartbeat; | | | | [address] | | Depression; | | | | [phone] | | Migraine; | | | | [...] | | | | | | [facility] [facility] | | | | | | [address] | | | | | | | [...]
--- OUTSIDE RECORDS SUMMARY | ~2019-09-28 | XMS | Encounter Summary ---
Demographics + + + | Address | [address] | | | [place] [address] | + + + | Home Phone [...] [place], [place] | | | | | [address] | | + + + + + Care Team Providers + +------+ + | Care Welt Butter Hand Name | Role | Phone | + +------+ + PCP | Unavailable | + +------+ + Encounter Details +--------+ + + + + | Date | Type | Department | Care Team | Description | +--------+ + + + + | 06/30/ | Hospital | [facility] | | | | 2000 | Encounter | MED CTR EMERGENCY | | | | | | [address] | | | | | | [place] | | | | | | [address] | | | | | | [phone] | | | +--------+ + + + [...] | | | | | [place] | | | | | | [address] | | | | | | | | +--------+---------+ + + + documented as of this encounter Visit Diagnoses Not on filedocumented in this encounter"
--- OUTSIDE RECORDS SUMMARY | ~2019-09-28 | XMS | Encounter Summary ---
Demographics + + + | Address | [address] | | | [place] [address] | + + + | Home Phone [...] [place] | | | | | [address] | | + + + + + Care Team Providers + +------+ + | Care Home Help Aide Name | Role | Phone | + +------+ + | Natalee Andersen NP | PCP | | + +------+ + Encounter Details +--------+ + + + + | Date | Type | Department | Care Team | Description | +--------+ + + + + | 07/25/ | Hospital | [facility] | Frandy Teresa, | Status post lumbar | | 2014 | Encounter | MED CTR XRAY [address] | DO [address] | spinal fusion | | | | [place] | [address] [place], [place] | | | | | [place] [address] | [address] | | | | | [phone] | | | +--------+ + + + [...] + + + +---------+ + + | Spart[place]-3 Fatty | Take 1,000 mg by | [...] [place] | | | | | | [address] | | | | | | | [...] + | MISCELLANEOUS LAB | | | [phone] | + +---------+ + + | MISCELANIOUS LAB | | | [phone] | + +---------+ + + documented in this encounter Visit Diagnoses + + | Diagnosis | + + | Status post lumbar spinal fusion Arthrodesis status | + + documented in this encounter"
--- OUTSIDE RECORDS SUMMARY | ~2019-09-28 | XMS | Encounter Summary ---
Demographics + + + | Address | [address] | | | [place] [address] | + + + | Home Phone [...] [place] | | | | | [address] | | + + + + + Care Team Providers + +------+ + | Care Property Loss Insurance Claim Adjuster Name | Role | Phone | [...] + + | 09/10/ | Documentati | [facility] | Katharine Moncada, | Other (urgent | | 2019 | on | CARDIOLOGY [place] | Technologist | report) | | | | [address] | | | | | | [place] | | | | | | [address] | | | | | | [phone] | | | +--------+ + + + [...] Progress Notes Katharine Moncada, Technologist - 09/10/2019 10:40 AM PSTReceived urgent report 09/10/19 Pt had a self trigger 08/26/19 at 17:27 105 BPM, activity: none 30 day monitor was [...] [place] | | | | | | [address] | | | | | | | | +--------+---------+ + + + documented as of this encounter Visit Diagnoses Not on filedocumented in this encounter"
--- OUTSIDE RECORDS SUMMARY | ~2019-09-28 | XMS | Encounter Summary ---
Demographics + + + | Address | [address] | | | [place] [address] | + + + | Home Phone [...] [place] | | | | | [address] | | + + + + + Care Team Providers + +------+ + | Care Zoning Assistant Name | Role | Phone | [...] + + | 08/20/ | Documentati | [facility] | Katharine Moncada, | Other (urgent | | 2019 | on | CARDIOLOGY [place] | Technologist | report) | | | | [address] | | | | | | [place] | | | | | | [address] | | | | | | [phone] | | | +--------+ + + + [...] [place] | | | | | | [address] | | | | | | | | +--------+---------+ + + + documented as of this encounter Visit Diagnoses Not on filedocumented in this encounter"
--- OUTSIDE RECORDS SUMMARY | ~2019-09-28 | XMS | Encounter Summary ---
Demographics + + + | Address | [address] | | | [place] [address] | + + + | Home Phone [...] [place], [place] | | | | | [address] | | + + + + + Care Team Providers + +------+ + | Care Supervisor Electric Motor Testing Name | Role | Phone | + +------+ + PCP | Unavailable | + +------+ + Encounter Details +--------+ + + + + | Date | Type | Department | Care Team | Description | +--------+ + + + + | 06/23/ | Hospital | [facility] | | | | 2000 | Encounter | MED CTR GENERIC OP | | | | | | CONV DEPT [address] | | | | | | [place], | | | | | | [place] [address] | | | | | | [phone] | | | +--------+ + + + [...] | | | | | [place] | | | | | | [address] | | | | | | | | +--------+---------+ + + + documented as of this encounter Visit Diagnoses Not on filedocumented in this encounter"
--- OUTSIDE RECORDS SUMMARY | ~2019-09-28 | XMS | Encounter Summary ---
Demographics + + + | Address | [address] | | | [place] [address] | + + + | Home Phone [...] [place] | | | | | [address] | | + + + + + Care Team Providers + +------+ + | Care Flight Simulator Teacher Name | Role | Phone | [...] Closed | | Radiology | Diagnoses | [place], | | | | | | Thoracic or | Natalee L, | | | | | | lumbosacral | INTERNAL REVIEW AND AUDIT COMPLIANCE [address] | | | | | | neuritis or | [address] [place] | | | | | | | [address] | | | | | | radiculitis, | [place], | | | | | | unspecified | [place] [address] | | | | | | | Phone: | | | | | | Degeneration | [phone] | | | | | | of lumbar | Fax: | | | | | | or | [phone] | | | | | | lumbosacral [...] + + | 03/11/ | Hospital | [facility] | Natalee Andersen | Thoracic or | | 2013 | Encounter | MED CTR MRI [address] | L, INTERNAL REVIEW AND AUDIT COMPLIANCE [address] | lumbosacral neuritis | | | | [place], | [address] | or radiculitis, | | | | [place] [address] | [place] [address] | unspecified; | | | | [phone] | [phone] | Degeneration of | | | | [...] + + + +---------+ + + | [place]-3 Fatty | Take 1,000 mg by | [...] [place] | | | | | | [address] | | | | | | | [...] + | MISCELLANEOUS LAB | | | [phone] | + +---------+ + + | MISCELANIOUS LAB | | | [phone] | + +---------+ + + documented in this encounter Visit Diagnoses + + | Diagnosis | + + | Thoracic or lumbosacral neuritis or radiculitis, unspecified | + + | Degeneration of lumbar or lumbosacral intervertebral disc | + + documented in this encounter"
--- OUTSIDE RECORDS SUMMARY | ~2019-09-28 | XMS | Encounter Summary ---
Demographics + + + | Address | [address] | | | [place] [address] | + + + | Home Phone [...] [place] | | | | | [address] | | + + + + + Care Team Providers + +------+ + | Care Poultry Sexer Name | Role | Phone | + +------+ + | Natalee Andersen NP | PCP | | + +------+ + Encounter Details +--------+ + + + + | Date | Type | Department | Care Team | Description | +--------+ + + + + | 06/26/ | Hospital | [facility] | Heather Cordero PT | | | 2014 | Encounter | MED CTR ACUTE | [address] | | | | | PHYSICAL THERAPY | [place] | | | | | [address] [place] | [address] | | | | | [place] [address] | | | | | | [phone] | | | +--------+ + + + [...] + + + +---------+ + + | [place]-3 Fatty | Take 1,000 mg by | [...] [place] | | | | | | [address] | | | | | | | | +--------+---------+ + + + documented as of this encounter Visit Diagnoses Not on filedocumented in this encounter"
--- OUTSIDE RECORDS SUMMARY | ~2019-09-28 | XMS | Encounter Summary ---
Demographics + + + | Address | [address] | | | [place] [address] | + + + | Home Phone [...] [place], [place] | | | | | [address] | | + + + + + Care Team Providers + +------+ + | Care Strategic Planning Consultant Name | Role | Phone | + +------+ + PCP | Unavailable | + +------+ + Encounter Details +--------+ + + + + | Date | Type | Department | Care Team | Description | +--------+ + + + + | 02/02/ | Hospital | [facility] | | | | 1997 - | Encounter | MED CTR GENERIC PSY | | | | | | CONV DEPT [address] | | | | 02/05/ | | [place], | | | | 1997 | | [place] [address] | | | | | | [phone] | | | +--------+ + + + [...] [place] | | | | | | [address] | | | | | | | | +--------+---------+ + + + documented as of this encounter Visit Diagnoses Not on filedocumented in this encounter"
--- OUTSIDE RECORDS SUMMARY | ~2019-09-28 | XMS | Encounter Summary ---
Demographics + + + | Address | [address] | | | [place] [address] | + + + | Home Phone [...] [place] | | | | | [address] | | + + + + + Care Team Providers + +------+ + | Care Business Analysis Specialist Name | Role | Phone | + +------+ + | Adriano Patrick MD | PCP | | + +------+ + Encounter Details +--------+ + + + + | Date | Type | Department | Care Team | Description | +--------+ + + + + | 06/10/ | Abstract | [facility] | Thierry Fry | | | 2014 | | MEDICINE [address] | MD Lisa [address] | | | | | [address] [place] | [address] [place] | | | | | [place] [address] | [id number] | | | | | [phone] | | | +--------+ + + + [...] | | | | | [place] | | | | | | [address] | | | | | | | [...]
--- OUTSIDE RECORDS SUMMARY | ~2019-09-28 | XMS | Encounter Summary ---
Demographics + + + | Address | [address] | | | [place] [address] | + + + | Home Phone [...] [place], [place] | | | | | [address] | | + + + + + Care Team Providers + +------+ + | Care Ski Instructor Name | Role | Phone | + +------+ + PCP | Unavailable | + +------+ + Encounter Details +--------+ + + + + | Date | Type | Department | Care Team | Description | +--------+ + + + + | 08/21/ | Hospital | [facility] | | | | 1996 | Encounter | MED CTR LABORATORY | | | | | | [address] | | | | | | [place] | | | | | | [address] | | | | | | [phone] | | | +--------+ + + + [...] | | | | | [place] | | | | | | [address] | | | | | | | | +--------+---------+ + + + documented as of this encounter Visit Diagnoses Not on filedocumented in this encounter"
--- OUTSIDE RECORDS SUMMARY | ~2019-09-28 | XMS | Encounter Summary ---
Demographics + + + | Address | [address] | | | [place] [address] | + + + | Home Phone [...] [place] | | | | | [address] | | + + + + + Care Team Providers + +------+ + | Care Medicine Worker Name | Role | Phone | + +------+ + | Natalee Andersen NP | PCP | | + +------+ + Encounter Details +--------+ + + + + | Date | Type | Department | Care Team | Description | +--------+ + + + + | 06/25/ | Hospital | [facility] | Frandy Teresa, | Diabetes mellitus | | 2014 | Encounter | MED CTR OR INTRA OP | DO [address] | (HCC) (Primary Dx) | | | | [address] | [place] [address] [place], [place] | | | | | [place], [place] | [address] | | | | | [address] | | | | | | [phone] | | | +--------+ + + + [...] + + + +---------+ + + | Verbena-3 Fatty | Take 1,000 mg by | [...] [place] | | | | | | [id number] | | | | | | | [...] mL/min/1.73m2 | [facility] | | | [facility] | RATE,ESTIMATED | | MEDICAL | | | | mL/min/1.86p2Yanv than | | CENTER - | | [...] + | [facility] | [address] | [place], [place] | [phone] | | [facility] | | [address] | | | - LABORATORY | | | | + + + + + | [facility] | [address] | [place], [place] | | | [facility] | | [address] | | | - LABORATORY | | [...] + | [facility] | [address] | [place] | [phone] | | [facility] | | [address] | | | - LABORATORY | | | | + + + + + | [facility] | [address] | [place], [place] | | | [facility] | | [address] | | | - LABORATORY | | [...] [address] | [place] | [phone] | | [facility] | | [address] | | | - LABORATORY | | | | + + + + + | [facility] | [address] | [place] | | | [facility] | | [address] | | | - LABORATORY | | [...] | [facility] | | [address] | | | - BLOOD BANK | [...] | + + + + + | [facility] | [address] | [place] | [phone] | | [facility] | | [address] | | | - LABORATORY | | | | + + + + + | [facility] | [address] | [place], [place] | | | [facility] | | [address] | | | - LABORATORY | | [...]
--- OUTSIDE RECORDS SUMMARY | ~2019-09-28 | XMS | Encounter Summary ---
Demographics + + + | Address | [address] | | | [place] [address] | + + + | Home Phone [...] [place] | | | | | [address] | | + + + + + Care Team Providers + +------+ + | Care Hiv/Aids Care Nurse Name | Role | Phone | [...] + + | 09/10/ | Documentati | [facility] | Katharine Moncada, | Other (urgent | | 2019 | on | CARDIOLOGY [place] | Technologist | report) | | | | [address] | | | | | | [place] | | | | | | [address] | | | | | | [phone] | | | +--------+ + + + [...] [place] | | | | | | [address] | | | | | | | | +--------+---------+ + + + documented as of this encounter Visit Diagnoses Not on filedocumented in this encounter"
--- OUTSIDE RECORDS SUMMARY | ~2019-09-28 | XMS | Encounter Summary ---
Demographics + + + | Address | [address] | | | [place] [address] | + + + | Home Phone [...] [place] | | | | | [address] | | + + + + + Care Team Providers + +------+ + | Care Crosscutter Rolled Glass Name | Role | Phone | + [...] | 03/10/ | Refill | [facility] | Katharine Cardona PA-C | Medication Refill | | 2014 | | MEDICINE [address] | [address] [place] | | | | | Street [place] | [place] [address] | | | | | [place] [address] | [phone] | | | | | [phone] | | | +--------+--------+ + + + [...] [place] | | | | | | [address] | | | | | | | | +--------+---------+ + + + documented as of this encounter Visit Diagnoses + + | Diagnosis | + + | Essential hypertension - Primary Unspecified essential hypertension | + + documented in this encounter"
--- OUTSIDE RECORDS SUMMARY | ~2019-09-28 | XMS | Encounter Summary ---
Demographics + + + | Address | [address] | | | [place] [address] | + + + | Home Phone [...] [place] | | | | | [address] | | + + + + + Care Team Providers + +------+ + | Care Consulting Sales Manager Name | Role | Phone [...] + + | 08/16/ | Documentati | [facility] | Katharine Moncada, | Other (urgent | | 2019 | on | CARDIOLOGY [place] | Technologist | report) | | | | [address] | | | | | | [place] | | | | | | [address] | | | | | | [phone] | | | +--------+ + + + [...] [place] | | | | | | [address] | | | | | | | | +--------+---------+ + + + documented as of this encounter Visit Diagnoses Not on filedocumented in this encounter"
--- OUTSIDE RECORDS SUMMARY | ~2019-09-28 | XMS | Encounter Summary ---
Demographics + + + | Address | [address] | | | [place] [address] | + + + | Home Phone [...] [place], [place] | | | | | [address] | | + + + + + Care Team Providers + +------+ + | Care Residential Carpet Installer Name | Role | Phone | + +------+ + PCP | Unavailable | + +------+ + Encounter Details +--------+ + + + + | Date | Type | Department | Care Team | Description | +--------+ + + + + | 02/02/ | Hospital | [facility] | | | | 1997 | Encounter | MED CTR EMERGENCY | | | | | | [address] | | | | | | [place] | | | | | | [address] | | | | | | [phone] | | | +--------+ + + + [...] | | | | | [place] | | | | | | [address] | | | | | | | | +--------+---------+ + + + documented as of this encounter Visit Diagnoses Not on filedocumented in this encounter"
--- OUTSIDE RECORDS SUMMARY | ~2019-09-28 | XMS | Encounter Summary ---
Demographics + + + | Address | [address] | | | [place] [address] | + + + | Home Phone [...] + | [address] | ECON | [place], [place] | | | | | [address] | | + + + + + Care Team Providers + +------+ + | Care Optical Technician Name | Role | Phone | + +------+ + PCP | Unavailable | + +------+ + Encounter Details +--------+ + + + + | Date | Type | Department | Care Team | Description | +--------+ + + + + | 07/17/ | Hospital | [facility] | | | | 1997 | Encounter | MED CTR EMERGENCY | | | | | | [address] | | | | | | [place] | | | | | | [address] | | | | | | [phone] | | | +--------+ + + + [...] 2019 | Visit | | [address] | | | | | | [place] | | | | | | [address] | | | | | | | | +--------+---------+ + + + documented as of this encounter Visit Diagnoses Not on filedocumented in this encounter"
--- OUTSIDE RECORDS SUMMARY | ~2019-09-28 | XMS | Encounter Summary ---
Demographics + + + | Address | [address] | | | [place] [address] | + + + | Home Phone [...] [place] | | | | | [address] | | + + + + + Care Team Providers + +------+ + | Care Jewelry Casting Model Maker Apprentice Name | Role | Phone | [...] + + | 08/13/ | Documentati | [facility] | Katharine Moncada, | Other (urgent | | 2019 | on | CARDIOLOGY [place] | Technologist | report) | | | | [address] | | | | | | [place] | | | | | | [address] | | | | | | [phone] | | | +--------+ + + + [...] [place] | | | | | | [address] | | | | | | | | +--------+---------+ + + + documented as of this encounter Visit Diagnoses Not on filedocumented in this encounter"
--- OUTSIDE RECORDS SUMMARY | ~2019-09-28 | XMS | Encounter Summary ---
Demographics + + + | Address | [address] | | | [place] [address] | + + + | Home Phone [...] [place], [place] | | | | | [address] | | + + + + + Care Team Providers + +------+ + | Care Crop Adjuster Name | Role | Phone | + +------+ + PCP | Unavailable | + +------+ + Encounter Details +--------+ + + + + | Date | Type | Department | Care Team | Description | +--------+ + + + + | 05/25/ | Hospital | [facility] | | | | 1991 | Encounter | MED CTR LABORATORY | | | | | | [address] | | | | | | [place] | | | | | | [address] | | | | | | [phone] | | | +--------+ + + + [...] | | | | | [place] | | | | | | [address] | | | | | | | | +--------+---------+ + + + documented as of this encounter Visit Diagnoses Not on filedocumented in this encounter"
--- OUTSIDE RECORDS SUMMARY | ~2019-09-28 | XMS | Encounter Summary ---
Demographics + + + | Address | [address] | | | [place] [address] | + + + | Home Phone [...] [place] | | | | | [address] | | + + + + + Care Team Providers + +------+ + | Care Kitchen Work Supervisor Name | Role | Phone | [...] + + | 08/09/ | Clinical | [facility] | Desiree Peterson DO | Syncope, unspecified | | 2019 | Support | CARDIOLOGY [place] | [address] | syncope type | | | | [address] | [place], [place] | | | | | [place] [address] | [address] | | | | | [place] | | | | | | [address] | Dora De La Torre | | | | | [phone] | [address]OLINE Mendez [address] | | | | | [address] | | | | | | [place] [address] | | | | | | [phone] | | | | | | | [...] [place] | | | | | | [address] | | | | | | | | +--------+---------+ + + + documented as of this encounter Visit Diagnoses + + | Diagnosis | + + | Syncope, unspecified syncope type | + + documented in this encounter"
--- OUTSIDE RECORDS SUMMARY | ~2019-09-28 | XMS | Encounter Summary ---
Demographics + + + | Address | [address] | | | [place] [address] | + + + | Home Phone [...] [place], [place] | | | | | [address] | | + + + + + Care Team Providers + +------+ + | Care Absorption Operator Name | Role | Phone | + +------+ + PCP | Unavailable | + +------+ + Encounter Details +--------+ + + + + | Date | Type | Department | Care Team | Description | +--------+ + + + + | 12/27/ | Hospital | [facility] | | | | 1995 | Encounter | MED CTR LABORATORY | | | | | | [address] | | | | | | [place] | | | | | | [address] | | | | | | [phone] | | | +--------+ + + + [...] | | | | | [place] | | | | | | [address] | | | | | | | | +--------+---------+ + + + documented as of this encounter Visit Diagnoses Not on filedocumented in this encounter"
--- OUTSIDE RECORDS SUMMARY | ~2019-09-28 | XMS | Encounter Summary ---
Demographics + + + | Address | [address] | | | [place] [address] | + + + | Home Phone [...] [place], [place] | | | | | [address] | | + + + + + Care Team Providers + +------+ + | Care Child Custody Evaluator Name | Role | Phone | + +------+ + PCP | Unavailable | + +------+ + Encounter Details +--------+ + + + + | Date | Type | Department | Care Team | Description | +--------+ + + + + | 12/22/ | Hospital | [facility] | | | | 1993 - | Encounter | MED CTR GENERIC PSY | | | | | | CONV DEPT [address] | | | | 12/25/ | | [address], | | | | 1993 | | [place] [address] | | | | | | [phone] | | | +--------+ + + + [...] [place] | | | | | | [address] | | | | | | | | +--------+---------+ + + + documented as of this encounter Visit Diagnoses Not on filedocumented in this encounter"
--- OUTSIDE RECORDS SUMMARY | ~2019-09-28 | XMS | Encounter Summary ---
Demographics + + + | Address | [address] | | | [place] [address] | + + + | Home Phone [...] [place] | | | | | [address] | | + + + + + Care Team Providers + +------+ + | Care Direct Care Specialist Name | Role | Phone | [...] + + | 07/19/ | Office | [facility] | Desiree Peterson DO | Syncope, unspecified | | 2019 | Visit | CARDIOLOGY [place] | [address] | syncope type | | | | [address] | [place], [place] | (Primary Dx); | | | | [address] [place] | [address] | Essential | | | | [place] | | hypertension; | | | | [address] | | Irregular heartbeat | | | | [phone] | | | +--------+---------+ + + + [...] - 07/19/2019 10:[address] [facility] Cardiology Cardiology Follow Up Note Reason [...] rtake in exercise. She recently got a Chihuahua and has been walking him more regularly. [...] by mouth daily. Blood Glucose Monitoring Suppl ([employer]ian VERIO FLEX SYSTEM) w/Device KIT by Does not ap ply route. budesonide-formoterol (SYMBICORT) 160-4.5 MCG/ACT inhaler Inhale 2 puffs into the lungs 2 (two) times daily. Calcium Carbonate Antacid 1000 MG tablet Take 1,000 mg by mouth 3 (three) times daily. Cholecalciferol (VITAMIN D3) 03830 units CAPS Take by mouth once a [...] [place] | | | | | | [address] | | | | | | | | +--------+---------+ + + + + +------+--------+ + + [...]
--- OUTSIDE RECORDS SUMMARY | ~2019-09-28 | XMS | Encounter Summary ---
Demographics + + + | Address | [address] | | | [place] [address] | + + + | Home Phone [...] [place] | | | | | [address] | | + + + + + Care Team Providers + +------+ + | Care Gas Plant Technician Name | Role | Phone | [...] + | 09/26/ | Refill | [facility] | Frandy Teresa, | Medication Refill | | 2013 | | NEUROSURGERY [address] | DO [address] | | | | | [address] [address] | [address] [place], [place] | | | | | [place], [place] | [id number] | | | | | [address] | | | | | | [phone] | | | +--------+--------+ + + + [...] | | | | | [place] | | | | | | [address] | | | | | | | | +--------+---------+ + + + documented as of this encounter Visit Diagnoses Not on filedocumented in this encounter"
--- OUTSIDE RECORDS SUMMARY | ~2019-09-28 | XMS | Encounter Summary ---
Demographics + + + | Address | [address] | | | [place] [address] | + + + | Home Phone [...] [place], [place] | | | | | [address] | | + + + + + Care Team Providers + +------+ + | Care Shrimp Peeling Machine Tender Name | Role | Phone | + +------+ + PCP | Unavailable | + +------+ + Encounter Details +--------+ + + + + | Date | Type | Department | Care Team | Description | +--------+ + + + + | 03/13/ | Hospital | [facility] | | | | 1996 - | Encounter | MED CTR GENERIC OP | | | | | | CONV DEPT [address] | | | | 03/21/ | | [address] [place], | | | | 1996 | | [place] [address] | | | | | | [phone] | | | +--------+ + + + [...] [place] | | | | | | [address] | | | | | | | | +--------+---------+ + + + documented as of this encounter Visit Diagnoses Not on filedocumented in this encounter"
--- OUTSIDE RECORDS SUMMARY | ~2019-09-28 | XMS | Encounter Summary ---
Demographics + + + | Address | [address] | | | [place] [address] | + + + | Home Phone [...] [place] | | | | | [address] | | + + + + + Care Team Providers + +------+ + | Care Chemical Equipment Controller Name | Role | Phone | + [...] + + | 06/27/ | Office | [facility] | Yecenia Richardson, | Hypertension, | | 2019 | Visit | CARDIOLOGY [place] | MD Nitin RODRIGUES | unspecified type | | | | [address] | [place], [place] | (Primary Dx); | | | | KEV [facility] | [address] | Bradycardia | | | | [place] | | | | | | [address] | | | | | | [phone] | | | +--------+---------+ + + + [...] urgent basis. Had an appointment today in [facility]. She has been feeling dizzy as [...] Take by mouth. Blood Glucose Monitoring Suppl (Songkick VERIO FLEX SYSTEM) w/Device KIT by Does [...] mg by mouth Daily. Cholecalciferol (VITAMIN D-3) 48015 units CAPS Take 50,000 Units by mouth [...] tablet Take 10 mg by mouth nightly. [place]-3 Fatty Acids (FISH OIL CONCENTRATE) 1000 MG [...] | | | | | | [place] [facility] [place] | | | | | | [address] | | | | | | | [...]
--- OUTSIDE RECORDS SUMMARY | ~2019-09-28 | XMS | Encounter Summary ---
Demographics + + + | Address | [address] | | | [place] [address] | + + + | Home Phone [...] [place] | | | | | [address] | | + + + + + Care Team Providers + +------+ + | Care Supervisor Fruit Grading Name | Role | Phone | + [...] + + | 08/14/ | Telephone | [facility] | Ashley Chávez | Other (Patient was | | 2019 | | CARDIOLOGY [place] Abad, Supervisor Coffee | anxious about urgent | | | | [address] | | reports. ) | | | | [place] | | | | | | [address] | | | | | | [phone] | | | +--------+ + + + [...] [place] | | | | | | [address] | | | | | | | | +--------+---------+ + + + documented as of this encounter Visit Diagnoses Not on filedocumented in this encounter"
--- OUTSIDE RECORDS SUMMARY | ~2019-09-28 | XMS | Encounter Summary ---
Demographics + + + | Address | [address] | | | [place] [address] | + + + | Home Phone [...] [place] | | | | | [address] | | + + + + + Care Team Providers + +------+ + | Care World History Teacher Name | Role | Phone | [...] | | | | | | | [address] | | | | | | | Phone: | | | | | | | [phone] | | | | | | | Fax: | | | | | | | [phone] | | +--------+--------+ + + + + Encounter Details +--------+---------+ + + + | Date | Type | Department | Care Team | Description | +--------+---------+ + + + | 02/27/ | Office | [facility] | Baudilio Newman | Neuropathy (Primary | | 2015 | Visit | NEUROLOGY [place]UR[place] | MD Pollo Need updated | Dx); Sleep apnea; | | | | [address] [facility] [facility] [address] [facility], | address | Stroke (HCC); | | | | [address] [place] | | Thyroid disease | | | | [place] [address] | | | | | | [phone] | | | +--------+---------+ + + + [...] supply of blood, brain tissue quickly dies. [id number] The [employer] [place] [address], [place] [address]. All righ ts reserved. This information is not intended as a substitute for professional medical care. Always follow your healthcare professional's instructions. documented in this encounter Progress Notes Baudilio Newman MD - 02/27/2015 10:31 AM PDTFormatting of this note might be differen t from the original. Baudilio Newman MD [address] [place] [address] Neurology Outpatient New Patient Note Referring Provider: [...] history. Notes from her recent hospitalization at [facility] were reviewed in detail. Ms. Arndt started feeling off in the evening of 02/01. She felt dizzy and laid down to slee p. Upon waking, she felt her right side was numb. She tried to get up to go to the bathroom and realized she was weak as well on the right. She was taken to [facility] where she was diagnosed with a TIA/stroke [...] systol ically. She was reevaluated in the [facility] ED for one such event and [...] hospitalization . This specimen was characterized at [facility], but the [facility] not [facility]. Unfortunately, Ms. Arndt notes that her right [...] Laterality: N/A; Surgeon: Frandy castellanos DO; Location: [facility] MAIN OR Current Medications: Outpatient Medications asenapine [...] tablet Take 15 mg by mouth nightly. [place]-3 Fatty Acids (FISH OIL CONCENTRATE) 1000 MG [...] BMI 46.04 kg /m2 Neck Circumference: 14" [place] Sleepiness Scale: 2 General: well developed and [...] Romberg test negative Radiographic Review: CTA from [facility] reviewed on i[facility]. No significant stenoses seen [...] No results found for this basename: hba1c, hbz7ncf, ldl, ldldirect, ldlext, dldlex Lab Results Component [...] | | | | | [place], [place] | | | | | | [id number] | | | | | | | [...]
--- OUTSIDE RECORDS SUMMARY | ~2019-09-28 | XMS | Encounter Summary ---
Demographics + + + | Address | [address] | | | [place] [address] | + + + | Home Phone [...] [place] | | | | | [address] | | + + + + + Care Team Providers + +------+ + | Care Raking Machine Operator Name | Role | Phone [...] | SLEEP DISORDER [address] | [address] | | | | | [address] [place] | [place], [place] | | | | | [place] [address] | [address] | | | | | [phone] | | | +--------+ + + + [...] | | | | | [place] | | | | | | [address] | | | | | | | | +--------+---------+ + + + documented as of this encounter Visit Diagnoses Not on filedocumented in this encounter"
--- OUTSIDE RECORDS SUMMARY | ~2019-09-28 | XMS | Encounter Summary ---
Demographics + + + | Address | [address] | | | [place] [address] | + + + | Home Phone [...] [place] | | | | | [address] | | + + + + + Care Team Providers + +------+ + | Care Recreational Therapist Name | Role | Phone | + [...] + | 03/07/ | Telephone | [facility] | Katharine Cardona PA-C | Results | | 2014 | | [facility] | [address] [place] | | | | | [address] | [place] [address] | | | | | [place], [place] | [phone] | | | | | [address] | | | | | | [phone] | | | +--------+ + + + [...] [place] | | | | | | [address] | | | | | | | | +--------+---------+ + + + documented as of this encounter Visit Diagnoses Not on filedocumented in this encounter"
--- OUTSIDE RECORDS SUMMARY | ~2019-09-28 | XMS | Encounter Summary ---
Demographics + + + | Address | [address] | | | [place] [address] | + + + | Home Phone [...] [place] | | | | | [address] | | + + + + + Care Team Providers + +------+ + | Care Sourcing Analyst Name | Role | Phone | [...] [address] [address] | [address] [place], [place] | | | | | [place], [place] | [id number] | | | | | [address] | | | | | | [phone] | | | +--------+ + + + [...] | | | | | [place] | | | | | | [address] | | | | | | | | +--------+---------+ + + + documented as of this encounter Visit Diagnoses Not on filedocumented in this encounter"
--- OUTSIDE RECORDS SUMMARY | ~2019-09-28 | XMS | Encounter Summary ---
Demographics + + + | Address | [address] | | | [place] [address] | + + + | Home Phone [...] [place] | | | | | [address] | | + + + + + Care Team Providers + +------+ + | Care Uncrater Name | Role | Phone | + [...] + + | 06/27/ | Office | [facility] | Yecenia Richardson, | Hypertension, | | 2019 | Visit | CARDIOLOGY [place] | MD Nitin RODRIGUES | unspecified type | | | | [address] | [place], [place] | (Primary Dx); | | | | [facility]EV [facility] | [address] | Bradycardia | | | | [place] | | | | | | [address] | | | | | | [phone] | | | +--------+---------+ + + + [...] urgent basis. Had an appointment today in [facility]. She has been feeling dizzy [...] Take by mouth. Blood Glucose Monitoring Suppl ([employer] VERIO FLEX SYSTEM) w/Device KIT by Does [...] mg by mouth Daily. Cholecalciferol (VITAMIN D-3) 45854 units CAPS Take 50,000 Units by mouth [...] tablet Take 10 mg by mouth nightly. [place]-3 Fatty Acids (FISH OIL CONCENTRATE) 1000 MG [...] | | | | | | [place] [facility] [place] | | | | | | [address] | | | | | | | [...]
--- OUTSIDE RECORDS SUMMARY | ~2019-09-28 | XMS | Encounter Summary ---
Demographics + + + | Address | [address] | | | [place] [address] | + + + | Home Phone [...] [place] | | | | | [address] | | + + + + + Care Team Providers + +------+ + | Care Beam Builder Helper Name | Role | Phone | [...] [address] [address] | [address] [address] [place], [place] | (Primary Dx) | | | | [place], [place] | [address] | | | | | [address] | | | | | | [phone] | | | +--------+ + + + [...] [place] | | | | | | [address] | | | | | | | [...] + | MISCELLANEOUS LAB | | | [phone] | + +---------+ + + | MISCELANIOUS LAB | | | [phone] | + +---------+ + + documented in this encounter Visit Diagnoses + + | Diagnosis | + + | Status post lumbar spinal fusion - Primary Arthrodesis status | + + documented in this encounter"
--- OUTSIDE RECORDS SUMMARY | ~2019-09-28 | XMS | Encounter Summary ---
Demographics + + + | Address | [address] | | | [place] [address] | + + + | Home Phone [...] [place] | | | | | [address] | | + + + + + Care Team Providers + +------+ + | Care Cable Reeler Name | Role | Phone | + [...] | | | | | | | [address] | | | | | | | Phone: | | | | | | | [phone] | | | | | | | Fax: | | | | | | | [phone] | | +--------+--------+ + + + + Encounter Details +--------+---------+ + + + | Date | Type | Department | Care Team | Description | +--------+---------+ + + + | 02/27/ | Office | [facility] | Baudilio Newman | Neuropathy (Primary | | 2015 | Visit | NEUROLOGY LAURIE | MD Pollo Need updated | Dx); Sleep apnea; | | | | [address] [facility] [facility], | address | Stroke (HCC); | | | | [address] [place] | | Thyroid disease | | | | [place] [address] | | | | | | [phone] | | | +--------+---------+ + + + [...] supply of blood, brain tissue quickly dies. [id number] [employer] [place] [address], [place] [address]. All righ ts reserved. This information is not intended as a substitute for professional medical care. Always follow your healthcare professional's instructions. documented in this encounter Progress Notes Baudilio Newman MD - 02/27/2015 10:31 AM PDTFormatting of this note might be differen t from the original. Baudilio Newman MD [address] [facility], [address] [place] [address] Neurology Outpatient New Patient Note Referring Provider: [...] history. Notes from her recent hospitalization at [facility] were reviewed in detail. Ms. Arndt started [...] systol ically. She was reevaluated in the [facility] ED for one such event and [...] hospitalization . This specimen was characterized at [facility], but the report is not currently available for [facility]. Unfortunately, Ms. Arndt notes that her right [...] Laterality: N/A; Surgeon: Frandy castellanos DO; Location: [facility] MAIN OR Current Medications: Outpatient Medications asenapine [...] tablet Take 15 mg by mouth nightly. [place]-3 Fatty Acids (FISH OIL CONCENTRATE) 1000 MG [...] BMI 46.04 kg /m2 Neck Circumference: 14" [place] Sleepiness Scale: 2 General: well developed and [...] Romberg test negative Radiographic Review: CTA from [facility] reviewed on iSITE. No significant stenoses seen [...] No results found for this basename: hba1c, aku4smc, ldl, ldldirect, ldlext, dldlex Lab Results Component [...] | | | | | [place], [place] | | | | | | [phone] | | | | | | | [...]
--- OUTSIDE RECORDS SUMMARY | ~2019-09-28 | XMS | Encounter Summary ---
Demographics + + + | Address | [address] | | | [place] [address] | + + + | Home Phone [...] [place] | | | | | [address] | | + + + + + Care Team Providers + +------+ + | Care Crawler Tractor Operator Name | Role | Phone | [...] | Services | ogy | Epigastric | [facility], | Tyrese Shelley MD | | | Required | | abdominal | [place], | [address] [place], | | | | | pain GERD | [facility]ER [address] | [address] | | | | | (gastroesoph | [place], [place] | [place], | | | | | ageal reflux | [address] [place] | [place] [address] | | | | | disease) | [place], [place] | Phone: | | | | | Fatty liver | [address] | [phone] | | | | | DM | Phone: | Fax: | | | | | (diabetes | [phone] | [phone] | | | | | mellitus) | Fax: | | | | | | (HCC) | [phone] | | +--------+ + + + + + Reason for Visit + + + | Reason | Comments | + + + | Gastroesophageal | epigastric pain | | Reflux | | + + + Encounter Details +--------+---------+ + + + | Date | Type | Department | Care Team | Description | +--------+---------+ + + + | 03/06/ | Office | [facility] | [facility], | Epigastric abdominal | | 2012 | Visit | GASTROENTEROLOGY | FORTUNATO Thomas [address] | pain (Primary Dx); | | | | [address] [place] | [place], [address] | GERD | | | | [address] [place], [place] | [place], [place] | (gastroesophageal | | | | [address] | [address] | reflux disease); | | | | [phone] | | Fatty liver; DM | | [...] years ago by Dr. Saravanan Tsai, in [facility]. Colonoscopy was done 05/[address] Hamlin in [facility]. Allergies Allergen Reactions Demerol Duloxetine Erythromycin Fluoxetine [...] and procedures. documented in t his encounter Plan of Treatment +--------+---------+ + + + | Date | Type | Specialty | Care Team | Description | +--------+---------+ + + + | 10/11/ | Office | Cardiology | Desiree Peterson DO | | | 2019 | Visit | | [address] | | | | | | [place], [place] | | | | | | [phone] | | | | | | | [...]
--- OUTSIDE RECORDS SUMMARY | ~2019-09-28 | XMS | Encounter Summary ---
Demographics + + + | Address | [address] | | | [place] [address] | + + + | Home Phone [...] [place], [place] | | | | | [address] | | + + + + + Care Team Providers + +------+ + | Care Director Prospect Name | Role | Phone | + +------+ + PCP | Unavailable | + +------+ + Encounter Details +--------+ + + + + | Date | Type | Department | Care Team | Description | +--------+ + + + + | 02/02/ | Hospital | [facility] | Serafin Bautista | | | 2012 | Encounter | MED CTR XRAY [address] | T, MD [address] | | | | | [place] | ST [place], [place] | | | | | [place] [address] | [address] | | | | | [phone] | | | +--------+ + + + [...] [place] | | | | | | [address] | | | | | | | [...] Performed At | + + + | [facility] Diagnostic Imaging Department | [facility] | | [address] | [facility] | | PROCEDURE: EPIDURAL STEROID | DIAG [...] Transcribed Date/Time: | | | 02/03/2012 18:45 Tmd Teacher: <Electronically Signed | | | by Serafin Bautista MD> 02/14/12 0916 | | + + + + + | Procedure Note | + + | Juan, Rad Conversion - 11/30/2013 5:06 PM [facility] | | Diagnostic Imaging Department | | [address] | | | | | | [...] | Transcribed Date/Time: 02/03/2012 18:45 | | Tmd Teacher: LaMAHIN | | <Electronically Signed by Serafin [...]
--- OUTSIDE RECORDS SUMMARY | ~2019-09-28 | XMS | Encounter Summary ---
Demographics + + + | Address | [address] | | | [place] [address] | + + + | Home Phone [...] [place], [place] | | | | | [address] | | + + + + + Care Team Providers + +------+ + | Care Mold Stripper Name | Role | Phone | + +------+ + PCP | Unavailable | + +------+ + Encounter Details +--------+ + + + + | Date | Type | Department | Care Team | Description | +--------+ + + + + | 02/24/ | Hospital | [facility] | | | | 1997 | Encounter | MED CTR EMERGENCY | | | | | | [address] | | | | | | [place] | | | | | | [address] | | | | | | [phone] | | | +--------+ + + + [...] | | | | | [place] | | | | | | [address] | | | | | | | | +--------+---------+ + + + documented as of this encounter Visit Diagnoses Not on filedocumented in this encounter"
--- OUTSIDE RECORDS SUMMARY | ~2019-09-28 | XMS | Encounter Summary ---
Demographics + + + | Address | [address] | | | [place] [address] | + + + | Home Phone [...] [place] | | | | | [address] | | + + + + + Care Team Providers + +------+ + | Care Community Service Specialist Name | Role | Phone | [...] + | 07/29/ | Telephone | [facility] | Frandy Teresa, | Other (multiple | | 2013 | | NEUROSURGERY [address] | DO [address] | questions) | | | | [address] | [address] [place], [place] | | | | | [place], [place] | [address] | | | | | [address] | | | | | | [phone] | | | +--------+ + + + [...] | | | | | [place] | | | | | | [address] | | | | | | | | +--------+---------+ + + + documented as of this encounter Visit Diagnoses Not on filedocumented in this encounter"
--- OUTSIDE RECORDS SUMMARY | ~2019-09-28 | XMS | Encounter Summary ---
Demographics + + + | Address | [address] | | | [place] [address] | + + + | Home Phone [...] [place] | | | | | [address] | | + + + + + Care Team Providers + +------+ + | Care Various Exceptionalities Teacher Name | Role | Phone | + +------+ + PCP | Unavailable | + +------+ + Encounter Details +--------+ + + + + | Date | Type | Department | Care Team | Description | +--------+ + + + + | 04/27/ | Hospital | [facility] | Sage Garza MD | | | 2001 | Encounter | HOSPITAL EMERGENCY | | | | | | CENTER [address] | | | | [address] [place], [place] | | | | | | [address] | | | | | | [phone] | | | +--------+ + + + [...] [place] | | | | | | [address] | | | | | | | | +--------+---------+ + + + documented as of this encounter Visit Diagnoses Not on filedocumented in this encounter"
--- OUTSIDE RECORDS SUMMARY | ~2019-09-28 | XMS | Encounter Summary ---
Demographics + + + | Address | [address] | | | [place] [address] | + + + | Home Phone [...] [place] | | | | | [address] | | + + + + + Care Team Providers + +------+ + | Care Beef Grader Name | Role | Phone | [...] + + | 07/10/ | Telephone | [facility] | Frandy Teresa, | Imaging Only (1 year | | 2014 | | NEUROSURGERY [address] | DO [address] | x-ray ) | | | | [address] | [address] [place], [place] | | | | | [place], [place] | [id number] | | | | | [address] | | | | | | [phone] | | | +--------+ + + + [...] [place] | | | | | | [address] | | | | | | | | +--------+---------+ + + + documented as of this encounter Visit Diagnoses Not on filedocumented in this encounter"
--- OUTSIDE RECORDS SUMMARY | ~2019-09-28 | XMS | Encounter Summary ---
Demographics + + + | Address | [address] | | | [place] [address] | + + + | Home Phone [...] [place], [place] | | | | | [address] | | + + + + + Care Team Providers + +------+ + | Care Isotope Technician Name | Role | Phone | + +------+ + PCP | Unavailable | + +------+ + Encounter Details +--------+ + + + + | Date | Type | Department | Care Team | Description | +--------+ + + + + | 01/06/ | Hospital | [facility] | | | | 1992 | Encounter | MED CTR LABORATORY | | | | | | [address] | | | | | | [place] | | | | | | [address] | | | | | | [phone] | | | +--------+ + + + [...] | | | | | [place] | | | | | | [address] | | | | | | | | +--------+---------+ + + + documented as of this encounter Visit Diagnoses Not on filedocumented in this encounter"
--- OUTSIDE RECORDS SUMMARY | ~2019-09-28 | XMS | Encounter Summary ---
Demographics + + + | Address | [address] | | | [place] [address] | + + + | Home Phone [...] [place], [place] | | | | | [address] | | + + + + + Care Team Providers + +------+ + | Care Ecdis N Navigation Operator Name | Role | Phone | + +------+ + PCP | Unavailable | + +------+ + Encounter Details +--------+ + + + + | Date | Type | Department | Care Team | Description | +--------+ + + + + | 06/07/ | Hospital | [facility] | | | | 1991 - | Encounter | MED CTR GENERIC OP | | | | | | CONV DEPT [address] | | | | 10/07/ | | [address], | | | | 1991 | | [place] [address] | | | | | | [phone] | | | +--------+ + + + [...] [place] | | | | | | [address] | | | | | | | | +--------+---------+ + + + documented as of this encounter Visit Diagnoses Not on filedocumented in this encounter"
--- OUTSIDE RECORDS SUMMARY | ~2019-09-28 | XMS | Encounter Summary ---
Demographics + + + | Address | [address] | | | [place] [address] | + + + | Home Phone [...] [place], [place] | | | | | [address] | | + + + + + Care Team Providers + +------+ + | Care Plan Consultant Name | Role | Phone | + +------+ + PCP | Unavailable | + +------+ + Encounter Details +--------+ + + + + | Date | Type | Department | Care Team | Description | +--------+ + + + + | 07/23/ | Hospital | [facility] | | | | 1992 - | Encounter | MED CTR GENERIC PSY | | | | | | CONV DEPT [address] | | | | 07/28/ | | [address] [place], | | | | 1992 | | [place] [address] | | | | | | [phone] | | | +--------+ + + + [...] [place] | | | | | | [address] | | | | | | | | +--------+---------+ + + + documented as of this encounter Visit Diagnoses Not on filedocumented in this encounter"
--- OUTSIDE RECORDS SUMMARY | ~2019-09-28 | XMS | Encounter Summary ---
Demographics + + + | Address | [address] | | | [place] [address] | + + + | Home Phone [...] [place] | | | | | [address] | | + + + + + Care Team Providers + +------+ + | Care Day Care Aide Name | Role | Phone | + +------+ + | Basim Bolanos MD | PCP | | + +------+ + Encounter Details +--------+ + + + + | Date | Type | Department | Care Team | Description | +--------+ + + + + | 04/18/ | Abstract | [facility] [place] | [facility], | | | 2012 | | GASTROENTEROLOGY | [address]AT[address] | | | | | [address] [place] | [place], [address] | | | | | [address] [place], [place] | [place], [place] | | | | | [address] | [address] | | | | | [phone] | | | +--------+ + + + [...] 10/11/ | Office | Cardiology | Desiree ePterson DO | | | 2019 | Visit | | [address] | | | | | | [place] [facility] | | | | | | [id number] | | | | | | | | +--------+---------+ + + + documented as of this encounter Visit Diagnoses Not on filedocumented in this encounter"
--- OUTSIDE RECORDS SUMMARY | ~2019-09-28 | XMS | Encounter Summary ---
Demographics + + + | Address | [address] | | | [place] [address] | + + + | Home Phone [...] [place] | | | | | [address] | | + + + + + Care Team Providers + +------+ + | Care Oracle Ebs Developer Name | Role | Phone | [...] + + | 09/10/ | Documentati | [facility] | Katharine Moncada, | Other (urgent | | 2019 | on | CARDIOLOGY [place] | Technologist | report) | | | | [address] | | | | | | [place] | | | | | | [address] | | | | | | [phone] | | | +--------+ + + + [...] [place] | | | | | | [address] | | | | | | | | +--------+---------+ + + + documented as of this encounter Visit Diagnoses Not on filedocumented in this encounter"
--- OUTSIDE RECORDS SUMMARY | ~2019-09-28 | XMS | Encounter Summary ---
Demographics + + + | Address | [address] | | | [place] [address] | + + + | Home Phone [...] [place] | | | | | [address] | | + + + + + Care Team Providers + +------+ + | Care Hollow Ware Maker Name | Role | Phone | [...] | Transcriptions | + + | Interface, Fruit Bar Maker In - 10/24/2006 3:09 AM PST | | [id number] | | Road [place], [place] [address] [place] | | [facility] HospitalOPERATION RECORDMed Rec No.: [id number] Date: [...]
--- OUTSIDE RECORDS SUMMARY | ~2019-09-28 | XMS | Encounter Summary ---
Demographics + + + | Address | [address] | | | [place] [address] | + + + | Home Phone [...] [place], [place] | | | | | [address] | | + + + + + Care Team Providers + +------+ + | Care Parimutuel Ticket Checker Name | Role | Phone | + +------+ + PCP | Unavailable | + +------+ + Encounter Details +--------+ + + + + | Date | Type | Department | Care Team | Description | +--------+ + + + + | 02/16/ | Hospital | [facility] | | | | 1994 | Encounter | MED CTR LABORATORY | | | | | | [address] | | | | | | [place] | | | | | | [address] | | | | | | [phone] | | | +--------+ + + + [...] | | | | | [place] | | | | | | [address] | | | | | | | | +--------+---------+ + + + documented as of this encounter Visit Diagnoses Not on filedocumented in this encounter"
--- OUTSIDE RECORDS SUMMARY | ~2019-09-28 | XMS | Encounter Summary ---
Demographics + + + | Address | [address] | | | [place] [address] | + + + | Home Phone [...] Organization | [facility] | | | and [place] | + + + | Address | Unknown | + + + | Phone | Unavailable | + + + Support + + + + + | Name | Relationship | Address | Phone | + + + + + | Araceli Sibley | ECON | [place] | | | | | [address] | | + + + + + Care Team Providers + +------+ + | Care Supplier Quality Manager Name | Role | Phone | [...] | | | spondylolist | | [address] | | | | | hesis | | [place], | | | | | Spinal | | [place] [address] | | | | | stenosis, | | Phone: | | | | | lumbar | | [phone] | | | | | region, | | Fax: | | | | | without | | [phone] | | | | | neurogenic | [...] + + | 07/02/ | Surgery | [facility] | Frandy Teresa, | MIS L5-S1 | | 2013 | | MED CTR OR INTRA OP | DO [address] | TRANSFORAMINAL | | | | [address] | [address] [place], [place] | LUMBAR INTERBODY | | | | [place] | [phone] | FUSION | | | | [address] | | | | | | [phone] | | | +--------+---------+ + + + [...] might be different fro m the original. [facility] DISCHARGE SUMMARY PATIENT NAME: Cindy Arndt [...] Take 15 mg by mouth nightl y. [place]-3 Fatty Acids (FISH OIL CONCENTRATE) 1000 MG [...] + + + +---------+ + + | Raymond-3 Fatty | Take 1,000 mg by | [...] prophylaxis -DC plan: SNF versus home with [facility] any time. aria T Neff RN - 07/04/2014 6:56 PM PDTFoley cath dc'd and MARI drain dc'd no problems. Chris Lynn PA-C - 07/04/2014 7:43 AM PDT [facility] PROGRESS NOTE Pt. Name/Age/: Cindy Arndt 58 y.o. 1955 Med. Record Number: [id number] Date of admission: 07/02/2014 Subjective: The patient [...] home medications. D/C plan: Home tomorrow with [facility]. D/c mari drain and riley cath today. D/c follow up clerk. Patient Active Problem List Diagnosis LUMBAR DISC [...] signed by: Chris Nicole, 07/04/2014 7:45 [facility] Chris Lynn PA-C - 07/03/2014 7:13 AM PDT . [facility] PROGRESS NOTE Pt. Name/Age/: Cindy Arndt 58 y.o. 1955 Med. Record Number: [id number] Date of admission: 07/02/2014 Subjective: The patient [...] Electronically signed by: Chris Nicole, 07/03/2014 7:13 [facility] Ton Johnston, KRIS - 07/03/2014 [...] | | | | | [place] | | | | | | [address] | | | | | | | [...] + | [facility] | [address] | [place], [place] | [phone] | | [facility] | | [address] | | | - LABORATORY | | | | + + + + + | [facility] | [address] | [place], [place] | | | [facility] | | [address] | | | - LABORATORY | | [...] + | [facility] | [address] | [place] | [phone] | | [facility] | | [address] | | | - LABORATORY | | | | + + + + + | [facility] | [address] | [place] | | | [facility] | | [address] | | | - LABORATORY | | [...] + | [facility] | [address] | [place], [place] | [phone] | | [facility] | | [address] | | | - LABORATORY | | | | + + + + + | [facility] | [address] | [place], [place] | | | [facility] | | [address] | | | - LABORATORY | | [...] + | [facility] | [address] | [place] | [phone] | | [facility] | | [address] | | | - LABORATORY | | | | + + + + + | [facility] | [address] | [place], [place] | | | [facility] | | [address] | | | - LABORATORY | | [...] + | [facility] | [address] | [place], [place] | [phone] | | [facility] | | [address] | | | - LABORATORY | | | | + + + + + | [facility] | [address] | [place] | | | [facility] | | [address] | | | - LABORATORY | | [...] + | [facility] | [address] | [place] | [phone] | | [facility] | | [address] | | | - LABORATORY | | | | + + + + + | [facility] | [address] | [place] | | | [facility] | | [address] | | | - LABORATORY | | [...] + + | Performing | Address | City/State/[facility] Centercode | Phone Number | | Organization | | | | + + + + + | [facility] | [address] | [place] | [phone] | | [facility] | | [address] | | | - LABORATORY | | | | + + + + + | [facility] | [address] | [place] | | | [facility] | | [address] | | | - LABORATORY | | [...] + | [facility] | [address] | [place] | [phone] | | [facility] | | [address] | | | - LABORATORY | | | | + + + + + | [facility] | [address] | [place] | | | [facility] | | [address] | | | - LABORATORY | | [...] [address] | [place] | [phone] | | [facility] | | [address] | | | - LABORATORY | | | | + + + + + | [facility] | [address] | [place], [place] | | | [facility] | | [address] | | | - LABORATORY | | [...] | of hardware for posterior fusion from L4mbzruzi S1 with interbody hardware at L5-S1. The [...] + | MISCELLANEOUS LAB | | | [phone] | + +---------+ + + | MISCELANIOUS LAB | | | [phone] | + +---------+ + + POC Glucose [...] + | [facility] | [address] | [place] | [phone] | | [facility] | | [address] | | | - LABORATORY | | | | + + + + + | [facility] | [address] | [place] | | | [facility] | | [address] | | | - LABORATORY | | [...] + | [facility] | [address] | [place], [place] | [phone] | | [facility] | | [address] | | | - LABORATORY | | | | + + + + + | [facility] | [address] | [place] | | | [facility] | | [address] | | | - LABORATORY | | [...] | | | POC | | | [facility] | | | | | [...] + | [facility] | [address] | [place] | [phone] | | [facility] | | [address] | | | - LABORATORY | | | | + + + + + | [facility] | [address] | [place] | | | [facility] | | [address] | | | - LABORATORY | | [...] + | [facility] | [address] | [place] | [phone] | | [facility] | | [address] | | | - LABORATORY | | | | + + + + + | [facility] | [address] | [place] | | | [facility] | | [address] | | | - LABORATORY | | [...] + | [facility] | [address] | [place], [place] | [phone] | | [facility] | | [address] | | | - LABORATORY | | | | + + + + + | [facility] | [address] | [place], [place] | | | [facility] | | [address] | | | - LABORATORY | | [...] ST. | [address] | [place] | | | [facility] | | [address] | | | - BLOOD BANK | [...] mLs | | Surgical | | 1:200,000 0.25-1:130720 % | | 14 12:42 | | [...]
--- OUTSIDE RECORDS SUMMARY | ~2019-09-28 | XMS | Encounter Summary ---
Demographics + + + | Address | [address] | | | [place] [address] | + + + | Home Phone [...] [place], [place] | | | | | [address] | | + + + + + Care Team Providers + +------+ + | Care All Terrain Vehicle Racer Name | Role | Phone | + +------+ + PCP | Unavailable | + +------+ + Encounter Details +--------+ + + + + | Date | Type | Department | Care Team | Description | +--------+ + + + + | 01/16/ | Hospital | [facility] | | | | 2002 | Encounter | MED CTR XRAY [address] | | | | | | [address] | | | | | | [place] [address] | | | | | | [phone] | | | +--------+ + + + [...] | | | | | [place] | | | | | | [address] | | | | | | | | +--------+---------+ + + + documented as of this encounter Visit Diagnoses Not on filedocumented in this encounter"
--- OUTSIDE RECORDS SUMMARY | ~2019-09-28 | XMS | Encounter Summary ---
Demographics + + + | Address | [address] | | | [place] [address] | + + + | Home Phone [...] [place] | | | | | [address] | | + + + + + [...] | | | spondylolist | | [address] | | | | | hesis | | [place], | | | | | Spinal | | [place] [address] | | | | | stenosis, | | Phone: | | | | | lumbar | | [phone] | | | | | region, | | Fax: | | | | | without | | [phone] | | | | | neurogenic | [...] | | | | | | | [place] | | | | | | [...] | | | | | | [place] | | | | | | | [...] | | | | | | SEG [place] | | | | | | | [...] + + | 07/02/ | Hospital | [facility] | Frandy Teresa, | Degenerative disc | | 2013 - | Encounter | MED CTR SURGICAL | DO [address] | disease, lumbar | | | | [address] | [place] [address] [place] | (Primary Dx); | | 07/05/ | | [place] [address] | [phone] | Diabetes mellitus | | 2013 | | [phone] | | ([facility]); Disturbance | | | | [...] Stable for discharge to SNF. DISPOSITION: SNF ([facility]) DISCHARGE MEDICATIONS Medications prior to admission that [...] Take 15 mg by mouth nightl y. [place]-3 Fatty Acids (FISH OIL CONCENTRATE) 1000 MG [...] + + + +---------+ + + | [place]-3 Fatty | Take 1,000 mg by | [...] prophylaxis -DC plan: SNF versus home with [facility] any time. Maria T Storm RN - 07/04/2014 6:56 PM PDTFoley cath dc'd and MARI drain dc'd no problems. Chris Lynn PA-C - 07/04/2014 7:[address] [facility] PROGRESS NOTE Pt. Name/Age/: Cindy Arndt 58 y.o. 1955 Med. Record Number: [id number] Date of admission: 07/02/2014 Subjective: The patient [...] home medications. D/C plan: Home tomorrow with [facility]. D/c mari drain and riley cath today. D/c branch operation evaluation manager. Patient Active Problem List Diagnosis LUMBAR DISC [...] PA-C - 07/03/2014 7:13 AM PDT . [facility] PROGRESS NOTE Pt. Name/Age/: Cindy Arndt 58 y.o. 1955 Med. Record Number: [id number] Date of admission: 07/02/2014 Subjective: The patient [...] Electronically signed by: Chris Nicole, [facility]/03/2014 [facility] Menjivar, KRIS - 07/03/2014 6:50 AM [...] [place] | | | | | | [address] | | | | | | | [...] | | | Needs | | | SLEMA | | | | | | ESTHELA [...] + | [facility] | [address] | [place], [place] | [phone] | | [facility] | | [address] | | | - LABORATORY | | | | + + + + + | [facility] | [address] | [place], [place] | | | [facility] | | [address] | | | - LABORATORY | | [...] | | | POC | | | STaL DEXTER | | [...] + | [facility] | [address] | [place] | [phone] | | [facility] | | [address] | | | - LABORATORY | | | | + + + + + | [facility] | [address] | [place] | | | [facility] | | [address] | | | - LABORATORY | | [...] + | [facility] | [address] | [place] | [phone] | | [facility] | | [address] | | | - LABORATORY | | | | + + + + + | [facility] | [address] | [place] | | | [facility] | | [address] | | | - LABORATORY | | [...] + | [facility] | [address] | [place], [place] | [phone] | | [facility] | | [address] | | | - LABORATORY | | | | + + + + + | [facility] | [address] | [place], [place] | | | [facility] | | [address] | | | - LABORATORY | | [...] + | [facility] | [address] | [place] | [phone] | | [facility] | | [address] | | | - LABORATORY | | | | + + + + + | [facility] | [address] | [place] | | | [facility] | | [address] | | | - LABORATORY | | [...] + | [facility] | [address] | [place] | [phone] | | [facility] | | [address] | | | - LABORATORY | | | | + + + + + | [facility] | [address] | [place] | | | [facility] | | [address] | | | - LABORATORY | | [...] [address] | [place] | [phone] | | [facility] | | [address] | | | - LABORATORY | | | | + + + + + | [facility] | [address] | [place] | | | [facility] | | [address] | | | - LABORATORY | | [...] + | [facility] | [address] | [place], [place] | [phone] | | [facility] | | [address] | | | - LABORATORY | | | | + + + + + | [facility] | [address] | [place], [place] | | | [facility] | | [address] | | | - LABORATORY | | [...] [address] | [place] | [phone] | | [facility] | | [address] | | | - LABORATORY | | | | + + + + + | [facility] | [address] | [place], [place] | | | [facility] | | [address] | | | - LABORATORY | | [...] | of hardware for posterior fusion from H4zuvjquy S1 with interbody hardware at L5-S1. The [...] + + | Performing | Address | City/State/[facility] | Phone Number | | Organization | | | | + +---------+ + + | MISCELLANEOUS LAB | | | [phone] | + +---------+ + + | MISCELANIOUS LAB | | | [phone] | + +---------+ + + POC Glucose [...] + | [facility] | [address] | [place], [place] | [phone] | | [facility] | | [address] | | | - LABORATORY | | | | + + + + + | [facility] | [address] | [place], [place] | | | [facility] | | [address] | | | - LABORATORY | | [...] + | [facility] | [address] | [place] | [phone] | | [facility] | | [address] | | | - LABORATORY | | | | + + + + + | [facility] | [address] | [place] | | | [facility] | | [address] | | | - LABORATORY | | [...] | | | POC | | | [facility] | | | | | | [...] + | [facility] | [address] | [place] | [phone] | | [facility] | | [address] | | | - LABORATORY | | | | + + + + + | [facility] | [address] | [place] | | | [facility] | | [address] | | | - LABORATORY | | [...] + | [facility] | [address] | [place], [place] | [phone] | | [facility] | | [address] | | | - LABORATORY | | | | + + + + + | [facility] | [address] | [place] | | | [facility] | | [address] | | | - LABORATORY | | [...] + | [facility] | [address] | [place] | [phone] | | [facility] | | [address] | | | - LABORATORY | | | | + + + + + | [facility] | [address] | [place] | | | [facility] | | [address] | | | - LABORATORY | | [...] | [facility] | | [address] | | | - BLOOD BANK | [...] + +---------+ +---+---+---+ | morphine 5 mg/mL GAS LINE SERVICER syringe | New Bag | 07/02/20 | [...] | | | | Dose(mg): 0, Starting GAS LINE SERVICER | | | | | | | Dose(mg): 1, Incremental Increase | | | | | | | GAS LINE SERVICER Dose(mg): 0.5, Maximum GAS LINE SERVICER | | | | | | | [...]
--- OUTSIDE RECORDS SUMMARY | ~2019-09-28 | XMS | Encounter Summary ---
Demographics + + + | Address | [address] | | | [place] [address] | + + + | Home Phone [...] [place] | | | | | [address] | | + + + + + Care Team Providers + +------+ + | Care Catalogue And Special Products Manager Name | Role | Phone | [...] | | | | | | [place] | | | | | | [address] | | | | | | [phone] | | | +--------+ + + + [...] [place] | | | | | | [address] | | | | | | | | +--------+---------+ + + + documented as of this encounter Visit Diagnoses Not on filedocumented in this encounter"
--- OUTSIDE RECORDS SUMMARY | ~2019-09-28 | XMS | Encounter Summary ---
Demographics + + + | Address | [address] | | | [place] [address] | + + + | Home Phone [...] [place], [place] | | | | | [address] | | + + + + + Care Team Providers + +------+ + | Care Certified Forklift Operator Name | Role | Phone | + +------+ + PCP | Unavailable | + +------+ + Encounter Details +--------+ + + + + | Date | Type | Department | Care Team | Description | +--------+ + + + + | 02/24/ | Hospital | [facility] | | | | 1997 - | Encounter | MED CTR GENERIC PSY | | | | | | CONV DEPT [address] | | | | 02/26/ | | [address], | | | | 1997 | | [place] [address] | | | | | | [phone] | | | +--------+ + + + [...] [place] | | | | | | [address] | | | | | | | | +--------+---------+ + + + documented as of this encounter Visit Diagnoses Not on filedocumented in this encounter"
--- OUTSIDE RECORDS SUMMARY | ~2019-09-28 | XMS | Encounter Summary ---
Demographics + + + | Address | [address] | | | [place] [address] | + + + | Home Phone [...] Organization | [facility] | | | and [place] | + + + | Address | Unknown | + + + | Phone | Unavailable | + + + Support + + + + + | Name | Relationship | Address | Phone | + + + + + | Araceli Sibley | ECON | [place] | | | | | [address] | | + + + + + Care Team Providers + +------+ + | Care Financial Solutions Advisor Name | Role | Phone | [...] + | 07/15/ | Telephone | [facility] | Russell Alfaro PA | Other | | 2016 | | SLEEP DISORDER 401 | [address] | | | | | [address] [place] | [place] [facility] [place] | | | | | [place] [address] | [address] | | | | | [phone] | | | +--------+ + + + [...] [place] | | | | | | [address] | | | | | | | | +--------+---------+ + + + documented as of this encounter Visit Diagnoses Not on filedocumented in this encounter"
--- OUTSIDE RECORDS SUMMARY | ~2019-09-28 | XMS | Encounter Summary ---
Demographics + + + | Address | [address] | | | [place] [address] | + + + | Home Phone [...] [place], [place] | | | | | [address] | | + + + + + Care Team Providers + +------+ + | Care Laboratory Geneticist Name | Role | Phone | + +------+ + PCP | Unavailable | + +------+ + Encounter Details +--------+ + + + + | Date | Type | Department | Care Team | Description | +--------+ + + + + | 01/06/ | Hospital | [facility] | | | | 1992 | Encounter | MED CTR LABORATORY | | | | | | [address] | | | | | | [place] | | | | | | [address] | | | | | | [phone] | | | +--------+ + + + [...] | | | | | [place] | | | | | | [address] | | | | | | | | +--------+---------+ + + + documented as of this encounter Visit Diagnoses Not on filedocumented in this encounter"
--- OUTSIDE RECORDS SUMMARY | ~2019-09-28 | XMS | Encounter Summary ---
Demographics + + + | Address | [address] | | | [place] [address] | + + + | Home Phone [...] [place], [place] | | | | | [address] | | + + + + + Care Team Providers + +------+ + | Care Senior Data Architect Name | Role | Phone [...] [place] | | | | | | [address] | | | | | | [phone] | | | +--------+ + + + [...] | | | | | [place] | | | | | | [address] | | | | | | | | +--------+---------+ + + + documented as of this encounter Visit Diagnoses Not on filedocumented in this encounter"
--- OUTSIDE RECORDS SUMMARY | ~2019-09-28 | XMS | Encounter Summary ---
Demographics + + + | Address | [address] | | | [place] [address] | + + + | Home Phone [...] [place] | | | | | [address] | | + + + + + Care Team Providers + +------+ + | Care Refractory Specialist Name | Role | Phone | [...] + | 08/20/ | Documentati | [facility] | Katharine Moncada, | Other (urgent | | 2019 | on | CARDIOLOGY [place] | Technologist | report) | | | | [address] | | | | | | [place] | | | | | | [address] | | | | | | [phone] | | | +--------+ + + + [...] [place] | | | | | | [address] | | | | | | | | +--------+---------+ + + + documented as of this encounter Visit Diagnoses Not on filedocumented in this encounter"
--- OUTSIDE RECORDS SUMMARY | ~2019-09-28 | XMS | Encounter Summary ---
Demographics + + + | Address | [address] | | | [place] [address] | + + + | Home Phone [...] [place] | | | | | [address] | | + + + + + Care Team Providers + +------+ + | Care Vice President Name | Role | Phone | + [...] + + | 08/15/ | Documentati | [facility] | Katharine Moncada, | Other (urgent | | 2019 | on | CARDIOLOGY [place] | Technologist | report) | | | | [address] | | | | | | [place] | | | | | | [address] | | | | | | [phone] | | | +--------+ + + + [...] [place] | | | | | | [address] | | | | | | | | +--------+---------+ + + + documented as of this encounter Visit Diagnoses Not on filedocumented in this encounter"
--- OUTSIDE RECORDS SUMMARY | ~2019-09-28 | XMS | Encounter Summary ---
Demographics + + + | Address | [address] | | | [place] [address] | + + + | Home Phone [...] [place] | | | | | [address] | | + + + + + Care Team Providers + +------+ + | Care Supervisor Stitching Department Name | Role | Phone | + [...] [address] [address] | [address] [place], [place] | | | | | [place], [place] | [id number] | | | | | [address] | | | | | | [phone] | | | +--------+ + + + [...] | | | | | [place] | | | | | | [address] | | | | | | | | +--------+---------+ + + + documented as of this encounter Visit Diagnoses Not on filedocumented in this encounter"
--- OUTSIDE RECORDS SUMMARY | ~2019-09-28 | XMS | Encounter Summary ---
Demographics + + + | Address | [address] | | | [place] [address] | + + + | Home Phone [...] [place], [place] | | | | | [address] | | + + + + + Care Team Providers + +------+ + | Care Salesperson Sheet Music Name | Role | Phone | + +------+ + PCP | Unavailable | + +------+ + Encounter Details +--------+ + + + + | Date | Type | Department | Care Team | Description | +--------+ + + + + | 03/13/ | Hospital | [facility] | | | | 1996 - | Encounter | MED CTR GENERIC OP | | | | | | CONV DEPT [address] | | | | 03/21/ | | [address], | | | | 1996 | | [place] [address] | | | | | | [phone] | | | +--------+ + + + [...] [place] | | | | | | [address] | | | | | | | | +--------+---------+ + + + documented as of this encounter Visit Diagnoses Not on filedocumented in this encounter"
--- OUTSIDE RECORDS SUMMARY | ~2019-09-28 | XMS | Encounter Summary ---
Demographics + + + | Address | [address] | | | [place] [address] | + + + | Home Phone [...] [place], [place] | | | | | [address] | | + + + + + Care Team Providers + +------+ + | Care Glass Cutter Hand Name | Role | Phone | + +------+ + PCP | Unavailable | + +------+ + Encounter Details +--------+ + + + + | Date | Type | Department | Care Team | Description | +--------+ + + + + | 12/27/ | Hospital | [facility] | | | | 1997 | Encounter | MED CTR EMERGENCY | | | | | | [address] | | | | | | [place] | | | | | | [address] | | | | | | [phone] | | | +--------+ + + + [...] | | | | | [place] | | | | | | [address] | | | | | | | | +--------+---------+ + + + documented as of this encounter Visit Diagnoses Not on filedocumented in this encounter"
--- OUTSIDE RECORDS SUMMARY | ~2019-09-28 | XMS | Encounter Summary ---
Demographics + + + | Address | [address] | | | [place] [address] | + + + | Home Phone [...] [place] | | | | | [address] | | + + + + + Care Team Providers + +------+ + | Care Artillery Or Naval Gunfire Observer Name | Role | Phone | [...] + + | 08/24/ | Documentati | [facility] | Katharine Moncada, | Other (urgent | | 2019 | on | CARDIOLOGY [place] | Technologist | report) | | | | [address] | | | | | | [place] | | | | | | [address] | | | | | | [phone] | | | +--------+ + + + [...] [place] | | | | | | [address] | | | | | | | | +--------+---------+ + + + documented as of this encounter Visit Diagnoses Not on filedocumented in this encounter"
--- OUTSIDE RECORDS SUMMARY | ~2019-09-28 | XMS | Encounter Summary ---
Demographics + + + | Address | [address] | | | [place] [address] | + + + | Home Phone [...] [place], [place] | | | | | [address] | | + + + + + Care Team Providers + +------+ + | Care Patient Care Coordinator Name | Role | Phone | + +------+ + PCP | Unavailable | + +------+ + Encounter Details +--------+ + + + + | Date | Type | Department | Care Team | Description | +--------+ + + + + | 02/22/ | Hospital | [facility] | | | | 1996 - | Encounter | MED CTR GENERIC PSY | | | | | | CONV DEPT [address] | | | | 02/26/ | | [address], | | | | 1996 | | [place] [address] | | | | | | [phone] | | | +--------+ + + + [...] [place] | | | | | | [address] | | | | | | | | +--------+---------+ + + + documented as of this encounter Visit Diagnoses Not on filedocumented in this encounter"
--- OUTSIDE RECORDS SUMMARY | ~2019-09-28 | XMS | Encounter Summary ---
Demographics + + + | Address | [address] | | | [place] [address] | + + + | Home Phone [...] [place] | | | | | [address] | | + + + + + Care Team Providers + +------+ + | Care Panama Hat Blocker Name | Role | Phone | + [...] + + | 08/20/ | Documentati | [facility] | Katharine Moncada, | Other (urgent | | 2019 | on | CARDIOLOGY [place] | Technologist | report) | | | | [address] | | | | | | [place] | | | | | | [address] | | | | | | [phone] | | | +--------+ + + + [...] [place] | | | | | | [address] | | | | | | | | +--------+---------+ + + + documented as of this encounter Visit Diagnoses Not on filedocumented in this encounter"
--- OUTSIDE RECORDS SUMMARY | ~2019-09-28 | XMS | Encounter Summary ---
Demographics + + + | Address | [address] | | | [place] [address] | + + + | Home Phone [...] [place] | | | | | [address] | | + + + + + Care Team Providers + +------+ + | Care Department Manager Name | Role | Phone | [...] + + | 08/28/ | Telephone | [facility] | Ashley Chávez | Other (Patient has | | 2019 | | CARDIOLOGY [place], Home Theater Installer | questions about | | | | [address] | | monitor. ) | | | | [place] | | | | | | [address] | | | | | | [phone] | | | +--------+ + + + [...] [place] | | | | | | [address] | | | | | | | | +--------+---------+ + + + documented as of this encounter Visit Diagnoses Not on filedocumented in this encounter"
--- OUTSIDE RECORDS SUMMARY | ~2019-09-28 | XMS | Encounter Summary ---
Demographics + + + | Address | [address] | | | [place] [address] | + + + | Home Phone [...] [place] | | | | | [address] | | + + + + + Care Team Providers + +------+ + | Care Shipfitter Name | Role | Phone | + [...] | | | | | [place] | | | | | | [address] | | | | | | [phone] | | | +--------+ + + + [...] [place] | | | | | | [address] | | | | | | | | +--------+---------+ + + + documented as of this encounter Visit Diagnoses Not on filedocumented in this encounter"
--- OUTSIDE RECORDS SUMMARY | ~2019-09-28 | XMS | Encounter Summary ---
Demographics + + + | Address | [address] | | | [place] [address] | + + + | Home Phone [...] [place], [place] | | | | | [address] | | + + + + + Care Team Providers + +------+ + | Care Tax Compliance Representative Name | Role | Phone | + +------+ + PCP | Unavailable | + +------+ + Encounter Details +--------+ + + + + | Date | Type | Department | Care Team | Description | +--------+ + + + + | 06/30/ | Hospital | [facility] | | | | 1999 - | Encounter | MED CTR GENERIC PSY | | | | | | CONV DEPT [address] | | | | 07/05/ | | [address], | | | | 1999 | | [place] [address] | | | | | | [phone] | | | +--------+ + + + [...] [place] | | | | | | [address] | | | | | | | | +--------+---------+ + + + documented as of this encounter Visit Diagnoses Not on filedocumented in this encounter"
--- OUTSIDE RECORDS SUMMARY | ~2019-09-28 | XMS | Encounter Summary ---
Demographics + + + | Address | [address] | | | [place] [address] | + + + | Home Phone [...] [place] | | | | | [address] | | + + + + + Care Team Providers + +------+ + | Care Telemetry Tech Name | Role | Phone | [...] + + | 08/13/ | Documentati | [facility] | Katharine Moncada, | Other (urgent | | 2019 | on | CARDIOLOGY [place] | Technologist | report) | | | | [address] | | | | | | [place] | | | | | | [address] | | | | | | [phone] | | | +--------+ + + + [...] [place] | | | | | | [address] | | | | | | | | +--------+---------+ + + + documented as of this encounter Visit Diagnoses Not on filedocumented in this encounter"
--- OUTSIDE RECORDS SUMMARY | ~2019-09-28 | XMS | Encounter Summary ---
Demographics + + + | Address | [address] | | | [place] [address] | + + + | Home Phone [...] [place] | | | | | [address] | | + + + + + Care Team Providers + +------+ + | Care Package Pick Up Name | Role | Phone | + [...] | Transcriptions | + + | Interface, Engine Testing Supervisor In - 10/24/2006 3:09 AM PST | | [facility] | | Road [place], [place] [address] [place] | | [facility] ClinicOPERATION RECORDMed Rec No.: [id number] Date: | | [...]
--- OUTSIDE RECORDS SUMMARY | ~2019-09-28 | XMS | Encounter Summary ---
Demographics + + + | Address | [address] | | | [place] [address] | + + + | Home Phone [...] [place] | | | | | [address] | | + + + + + Care Team Providers + +------+ + | Care Direct Mail Manager Name | Role | Phone | [...] + | 02/27/ | Telephone | [facility] | Katharine Cardona PA-C | Appointment (New | | 2014 | | MEDICINE [address] | Patient) | | | | [address] [place] | [place] [address] | | | | | [place] [address] | [phone] | | | | | [phone] | | | +--------+ + + + [...] [place] | | | | | | [address] | | | | | | | | +--------+---------+ + + + documented as of this encounter Visit Diagnoses Not on filedocumented in this encounter"
--- OUTSIDE RECORDS SUMMARY | ~2019-09-28 | XMS | Encounter Summary ---
Demographics + + + | Address | [address] | | | [place] [address] | + + + | Home Phone [...] + | Arcaeli [place]ibley | ECON | [place], [place] | | | | | [address] | | + + + + + Care Team Providers + +------+ + | Care Combiner Operator Name | Role | Phone | + +------+ + PCP | Unavailable | + +------+ + Encounter Details +--------+ + + + + | Date | Type | Department | Care Team | Description | +--------+ + + + + | 06/17/ | Hospital | [facility] | | | | 1991 - | Encounter | MED CTR GENERIC PSY | | | | | | CONV DEPT [address] | | | | 06/18/ | | [address], | | | | 1991 | | [place] [address] | | | | | | [phone] | | | +--------+ + + + [...] [place] | | | | | | [address] | | | | | | | | +--------+---------+ + + + documented as of this encounter Visit Diagnoses Not on filedocumented in this encounter"
--- OUTSIDE RECORDS SUMMARY | ~2019-09-28 | XMS | Encounter Summary ---
Demographics + + + | Address | [address] | | | [place] [address] | + + + | Home Phone [...] [place] | | | | | [address] | | + + + + + Care Team Providers + +------+ + | Care Computer Systems Information Director Name | Role | Phone | [...] | | | spondylolist | | [address] | | | | | hesis | | [place], | | | | | Spinal | | [place] [address] | | | | | stenosis, | | Phone: | | | | | lumbar | | [phone] | | | | | region, | | Fax: | | | | | without | | [phone] | | | | | neurogenic | [...] | | | | | [address] | [address] [place] | | | | | [place] | [phone] | | | | | [address] | | | | | | [phone] | | | +--------+ + + + [...] Easy mask AW. DL times one with [facility] easy view | | | 2 | Intubation | | | | 2 | | | | | 6 | | | +----+---+ + + | | 1 | AN Bite | | | | 2 | Block | | | | 2 | | | | | 7 | | | +----+---+ + + | | 1 | [place] | | | | 2 | 43-degrees | | | | 3 | | | | | 1 | | | +----+---+ + + | | 1 | [place] off | | | | 4 | [...] | | | | | [place], [place] | | | | | | [phone] | | | | | | | [...]
--- OUTSIDE RECORDS SUMMARY | ~2019-09-28 | XMS | Encounter Summary ---
Demographics + + + | Address | [address] | | | [place] [address] | + + + | Home Phone [...] [place], [place] | | | | | [address] | | + + + + + Care Team Providers + +------+ + | Care Biological Lab Technician Name | Role | Phone | + +------+ + PCP | Unavailable | + +------+ + Encounter Details +--------+ + + + + | Date | Type | Department | Care Team | Description | +--------+ + + + + | 02/02/ | Hospital | [facility] | Serafin Bautista | | | 2012 | Encounter | MED CTR XRAY [address] | T, MD [address] | | | | | [place] | ST [place], [place] | | | | | [place] [address] | [address] | | | | | [phone] | | | +--------+ + + + [...] [place] | | | | | | [address] | | | | | | | [...] Performed At | + + + | [facility] Diagnostic Imaging Department | [facility] | | [address] | [facility] | | PROCEDURE: EPIDURAL STEROID | DIAG [...] Transcribed Date/Time: | | | 02/03/2012 18:45 Conductor Sleeping Car: <Electronically Signed | | | by Serafin Bautista MD> 02/14/12 0916 | | + + + + + | Procedure Note | + + | Juan, Rad Conversion - 11/30/2013 5:06 PM [facility] | | Diagnostic Imaging Department | | [address] | | | | | | | [...] | Transcribed Date/Time: 02/03/2012 18:45 | | Conductor Sleeping Car: LaMAHIN | | <Electronically Signed by Serafin [...]
--- OUTSIDE RECORDS SUMMARY | ~2019-09-28 | XMS | Encounter Summary ---
Demographics + + + | Address | [address] | | | [place] [address] | + + + | Home Phone [...] [place] | | | | | [address] | | + + + + + Care Team Providers + +------+ + | Care Athletic Equipment Manager Name | Role | Phone | [...] + + | 08/20/ | Documentati | [facility] | Katharine Moncada, | Other (urgent | | 2019 | on | CARDIOLOGY [place] | Technologist | report) | | | | [address] | | | | | | [place] | | | | | | [address] | | | | | | [phone] | | | +--------+ + + + [...] [place] | | | | | | [address] | | | | | | | | +--------+---------+ + + + documented as of this encounter Visit Diagnoses Not on filedocumented in this encounter"
--- OUTSIDE RECORDS SUMMARY | ~2019-09-28 | XMS | Encounter Summary ---
Demographics + + + | Address | [address] | | | [place] [address] | + + + | Home Phone [...] [place] | | | | | [address] | | + + + + + Care Team Providers + +------+ + | Care Sling Operator Name | Role | Phone | + +------+ + | Adriano Patrick MD | PCP | | + +------+ + Encounter Details +--------+ + + + + | Date | Type | Department | Care Team | Description | +--------+ + + + + | 05/16/ | Orders Only | [facility] | Provider, | | | 2018 | | SYSTEM GENERIC OP | MD [address] | | | | | CONVERSION [address] | [address] | | | | | [address] [place], [place] | [place] [address] | | | | | [address] | | | | | | [phone] | | | +--------+ + + + [...] | | | | | [place], [place] | | | | | | [address] | | | | | | | | +--------+---------+ + + + documented as of this encounter Visit Diagnoses Not on filedocumented in this encounter"
--- OUTSIDE RECORDS SUMMARY | ~2019-09-28 | XMS | Encounter Summary ---
Demographics + + + | Address | [address] | | | [place] [address] | + + + | Home Phone [...] [place] | | | | | [address] | | + + + + + Care Team Providers + +------+ + | Care Public Relations Representative Name | Role | Phone | [...] + + | 08/13/ | Documentati | [facility] | Katharine Moncada, | Other (urgent | | 2019 | on | CARDIOLOGY [place] | Technologist | report) | | | | [address] | | | | | | [place] | | | | | | [address] | | | | | | [phone] | | | +--------+ + + + [...] [place] | | | | | | [address] | | | | | | | | +--------+---------+ + + + documented as of this encounter Visit Diagnoses Not on filedocumented in this encounter"
--- OUTSIDE RECORDS SUMMARY | ~2019-09-28 | XMS | Encounter Summary ---
Demographics + + + | Address | [address] | | | [place] [address] | + + + | Home Phone [...] [place] | | | | | [address] | | + + + + + Care Team Providers + +------+ + | Care Meter Changes Records Clerk Name | Role | Phone | + +------+ + | Natalee Andersen NP | PCP | | + +------+ + Encounter Details +--------+ + + + + | Date | Type | Department | Care Team | Description | +--------+ + + + + | 06/25/ | Hospital | [facility] | Frandy Teresa, | Acquired | | 2014 | Encounter | MED CTR XRAY [address] | DO [address] | spondylolisthesis | | | | [place] | [address] [place], [place] | | | | | [place] [address] | [address] | | | | | [phone] | | | +--------+ + + + [...] + + + +---------+ + + | [place]-3 Fatty | Take 1,000 mg by | [...] [place] | | | | | | [address] | | | | | | | | +--------+---------+ + + + documented as of this encounter Visit Diagnoses + + | Diagnosis | + + | Acquired spondylolisthesis | + + documented in this encounter"
--- OUTSIDE RECORDS SUMMARY | ~2019-09-28 | XMS | Encounter Summary ---
Demographics + + + | Address | [address] | | | [place] [address] | + + + | Home Phone [...] [place] | | | | | [address] | | + + + + + Care Team Providers + +------+ + | Care Marine Architect Name | Role | Phone | + +------+ + | Basim Bolanos MD | PCP | | + +------+ + Encounter Details +--------+ + + + + | Date | Type | Department | Care Team | Description | +--------+ + + + + | 01/24/ | Abstract | [facility] [place] | [facility], | | | 2012 | | GASTROENTEROLOGY | FORTUNATO Thomas [address] | | | | | [address] [place] | [place], [address] | | | | | [address] [place], [place] | [place], [place] | | | | | [address] | [address] | | | | | [phone] | | | +--------+ + + + [...] [place] | | | | | | [address] | | | | | | | | +--------+---------+ + + + documented as of this encounter Visit Diagnoses Not on filedocumented in this encounter"
--- OUTSIDE RECORDS SUMMARY | ~2019-09-28 | XMS | Encounter Summary ---
Demographics + + + | Address | [address] | | | [place] [address] | + + + | Home Phone [...] [place] | | | | | [address] | | + + + + + Care Team Providers + +------+ + | Care Stock Control Clerk Name | Role | Phone | [...] + + | 07/01/ | Telephone | [facility] | Frandy Teresa, | Other (Surgery ) | | 2013 | | NEUROSURGERY [address] | DO [address] | | | | | [address] | [address] [place], [place] | | | | | [place], [place] | [address] | | | | | [address] | | | | | | [phone] | | | +--------+ + + + [...] [place] | | | | | | [address] | | | | | | | | +--------+---------+ + + + documented as of this encounter Visit Diagnoses Not on filedocumented in this encounter"
--- OUTSIDE RECORDS SUMMARY | ~2019-09-28 | XMS | Encounter Summary ---
Demographics + + + | Address | [address] | | | [place] [address] | + + + | Home Phone [...] [place] | | | | | [address] | | + + + + + Care Team Providers + +------+ + | Care Stock Grader Name | Role | Phone | [...] + | 02/21/ | Refill | [facility] | Deon Gonzales | Medication Refill | | 2012 | | SLEEP DISORDER [address] | MD [address] | | | | | [address] [place] | [address] [place] | | | | | [place] [address] | [place] [address] | | | | | [phone] | [phone] | | | | | | | [...] [place] | | | | | | [address] | | | | | | | | +--------+---------+ + + + documented as of this encounter Visit Diagnoses + + | Diagnosis | + + | Obstructive sleep apnea (adult) (pediatric) - Primary | + + documented in this encounter"
--- OUTSIDE RECORDS SUMMARY | ~2019-09-28 | XMS | Encounter Summary ---
Demographics + + + | Address | [address] | | | [place] [address] | + + + | Home Phone [...] [place], [place] | | | | | [address] | | + + + + + Care Team Providers + +------+ + | Care Rooms Director Name | Role | Phone | + +------+ + PCP | Unavailable | + +------+ + Encounter Details +--------+ + + + + | Date | Type | Department | Care Team | Description | +--------+ + + + + | 02/24/ | Hospital | [facility] | | | | 1997 | Encounter | MED CTR EMERGENCY | | | | | | [address] | | | | | | [place] | | | | | | [address] | | | | | | [phone] | | | +--------+ + + + [...] | | | | | [place] | | | | | | [address] | | | | | | | | +--------+---------+ + + + documented as of this encounter Visit Diagnoses Not on filedocumented in this encounter"
--- OUTSIDE RECORDS SUMMARY | ~2019-09-28 | XMS | Encounter Summary ---
Demographics + + + | Address | [address] | | | [place] [address] | + + + | Home Phone [...] [place] | | | | | [address] | | + + + + + Care Team Providers + +------+ + | Care Monogram And Letter Paster Name | Role | Phone | [...] | | | | | [address] | [place], [place] | | | | | [place], [place] | [address] | | | | | [address] | | | | | | [phone] | | | +--------+ + + + [...] [place] | | | | | | [address] | | | | | | | | +--------+---------+ + + + documented as of this encounter Visit Diagnoses Not on filedocumented in this encounter"
--- OUTSIDE RECORDS SUMMARY | ~2019-09-28 | XMS | Encounter Summary ---
Demographics + + + | Address | [address] | | | [place] [address] | + + + | Home Phone [...] [place], [place] | | | | | [address] | | + + + + + Care Team Providers + +------+ + | Care Guideman Name | Role | Phone | + +------+ + PCP | Unavailable | + +------+ + Encounter Details +--------+ + + + + | Date | Type | Department | Care Team | Description | +--------+ + + + + | 12/27/ | Hospital | [facility] | | | | 1997 - | Encounter | MED CTR GENERIC PSY | | | | | | CONV DEPT [address] | | | | 01/01/ | | [place], | | | | 1997 | | [place] [address] | | | | | | [phone] | | | +--------+ + + + [...] [place] | | | | | | [address] | | | | | | | | +--------+---------+ + + + documented as of this encounter Visit Diagnoses Not on filedocumented in this encounter"
--- OUTSIDE RECORDS SUMMARY | ~2019-09-28 | XMS | Encounter Summary ---
Demographics + + + | Address | [address] | | | [place] [address] | + + + | Home Phone [...] [place], [place] | | | | | [address] | | + + + + + Care Team Providers + +------+ + | Care Lye Boiler Name | Role | Phone | + +------+ + PCP | Unavailable | + +------+ + Encounter Details +--------+ + + + + | Date | Type | Department | Care Team | Description | +--------+ + + + + | 12/09/ | Hospital | [facility] | Serafin Bautista | | | 2012 | Encounter | MED CTR XRAY [address] | T, MD [address] | | | | | [place] | ST [place], [place] | | | | | [place] [address] | [address] | | | | | [phone] | | | +--------+ + + + [...] [place] | | | | | | [address] | | | | | | | [...] At | + + + | [facility] Diagnostic Imaging Department | [facility] | | [address] | [facility] | | PROCEDURE NOTE EPIDURAL [...] Manohar Martinez Conversion - 11/30/2013 4:45 PM [facility] | | Diagnostic Imaging Department | | [address] | | | | | | | [...] + + | Performing | Address | City/State/[facility] | Phone Number | | Organization | | | | + +---------+ + + | [place] | | | | | [facility] | | | | + +---------+ + + documented in this encounter Visit Diagnoses Not on filedocumented in this encounter"
--- OUTSIDE RECORDS SUMMARY | ~2019-09-28 | XMS | Clinical Summary ---
Demographics + + + | Address | [address] | | | [place] [address] | + + + | Home Phone [...] [place] | | | | | [address] | | + + + + + Care Team Providers + +------+ + | Care Escapement Maker Name | Role | Phone | [...] | | Activ | | (VITAMIN D-3) [id number] | mouth Once a week. | | [...] | | | | e | | ([employer] | | | | | [...] | | 2019 | | | D, Electrical And Instrumentation Manager | calling to be seen | [...] + | 09/10/ | Documentati | Cardiology Katharine Be, | Other (urgent | 2018 | on | | Technologist | report) | +--------+ + + + + | 08/30/ | Telephone | Cardiology | Ashley Chávez | Other (Patient wants | | 2018 | | | D, Electrical And Instrumentation Manager | to take monitor | | | | | | off. ) | +--------+ + + + + | 08/28/ | Telephone | Cardiology | Ashley Chávez | Other (Patient has | | 2018 | | | D, Electrical And Instrumentation Manager | questions about | | | | [...] to | 2018 | | | D, Electrical And Instrumentation Manager | tell patient what | | | [...] | | 2018 | | | D, Electrical And Instrumentation Manager | anxious about urgent | | | [...] (Questions | | 2018 | | | [place] Electrical And Instrumentation Manager | about coverage. ) | +--------+ + + + + | 07/30/ | Telephone | Cardiology | Ashley Chávez | Other (Patient | | 2019 | | | D, Electrical And Instrumentation Manager | concerns ) | +--------+ + + + + | 07/24/ | Telephone | Cardiology | Ashley Chávez | Other (Patient is | | 2018 | | | D, Electrical And Instrumentation Manager | worried about paying | | | [...] [place] | | | | | | [address] | | | | | | | [...] | [employer] - | | 04/02/ | [id number] | | 5ccImplanted: Qty: 1 on | | Spine | MEDT | | 2019 | | | 07/02/2014 by Frandy Teresa | | Lumbar | | | | /[id number] | | A, DO at [facility] | | | | | | 6-020 | | [facility] | | | | | | / | + +------+--------+ +--------+--------+--------+ | Graft Infuse Bone Kit Xxs - | | N/A: | SOFAMOR | | 01/21/ | [id number] | | [id number]: Qty: 1 on | | Spine | DANEK - DIV | | 2014 | 0 / | | 07/02/2014 by Frandy Teresa | | Lumbar | [employer] | | | /[id number] | | A, DO at [facility] | | | - SFDK | | | 06AAH | | [facility] | | | | | | | + +------+--------+ +--------+--------+--------+ | Imp Spn Spcr Cpstn 8x26mm - | | N/A: | SOFAMOR | | 01/11/ | [id number] | | [id number]: Qty: 1 on | | Spine | DANEK - DIV | | 2 | 6 / | | 07/02/2014 by Frandy Teresa | | Lumbar | [employer] | | | /[id number] | | DO Ronak at [facility] | | | - SFDK | | | 928 | | [facility] | | | | | | | + +------+--------+ +--------+--------+--------+ | Set Scrw Ns G5 Brk Off Ti | | N/A: | SOFAMOR | | | [id number] | | 4.75 - [id number]: | | Spine | DANEK - DIV | | | 0 / / | | Qty: 4 on 07/02/2014 by | | Lumbar | [employer] | | | | | Frandy Teresa DO at [facility] | | | - SFDK | | | | | [facility] | | | | | | | | CENTER | | | | | | | + +------+--------+ +--------+--------+--------+ | RodImplanted: Qty: 1 on | | N/A: | | | | [id number] | | 07/02/2014 by Frandy Teresa | | Spine | | | | 540 / | | DO Ronak at [facility] | | Lumbar | | | | / | | [facility] | | | | | | | + +------+--------+ +--------+--------+--------+ | RodImplanted: Qty: 1 on | | N/A: | MEDTROL - | | | [id number] | | 07/02/2014 by Frandy Teresa | | Spine | MDTR | | | 545 / | | A DO at [facility] | | Lumbar | | | | / | | [facility] | | | | | | | + +------+--------+ +--------+--------+--------+ | Screw 7.5x50mm Sextant - | | N/A: | [employer] - | | | [id number] | | [id number]: Qty: 1 on | | Spine | MEDT | | | [id number] | | 07/02/2014 by Frandy Teresa | | Lumbar | | | | / / | | A DO at [facility] | | | | | | | | [facility] | | | | | | | + +------+--------+ +--------+--------+--------+ | Cannulated ScrewImplanted: | | N/A: | MEDTROL - | | | [id number] | | Qty: 1 on 07/02/2014 by | | Spine | MDTR | | | [id number] | | Frandy Teresa DO at [facility] | | Lumbar | | | | / / | | [facility] | | | | | | | | CENTER | | | | | | | + +------+--------+ +--------+--------+--------+ | Cannulated ScrewImplanted: | | N/A: | [employer]IC - | | | [id number] | | Qty: 1 on 07/02/2014 by | | Spine | MEDT | | | [id number] | | Frandy Teresa DO at [facility] | | Lumbar | | | | / / | | [facility] | | | | | [...] +--------+ +---------+--------+ | MEDICARE | MEDICA | [id number] | 02/22/20 | [phone] | | Medica | | | RE | | 09-Pre | 5 | | re | | | PART A | | sent | | | | | | AND B | | | | | | + +--------+ +--------+ +---------+--------+ | MEDICARE | MEDICA | [id number] | 5/1/20 | [phone] | | Medica | | [...] | Self | [birth year] | [address] | | | al/Fam | | [address] | [phone] | [address] [place], [place] | | | [place] | | | 8 (Home) | [address] | + +--------+ +--------+ + + | Cindy Arndt Natali | Person | Self | [birth year] | | [address] | | | al/Fam | | 1955 | [phone] | [address] [place] | | | [place] | | | 8 (Home) | [address] | + +--------+ +--------+ + + Advance Directives + + + + + | Type | Date Recorded | Patient | Explanation | | | | Radiographic Technologist | | + + + + + | Power of | | | | | Driver Trainer | | | | + + + [...]
--- OUTSIDE RECORDS SUMMARY | ~2019-09-28 | XMS | Encounter Summary ---
Demographics + + + | Address | [address] | | | [place] [address] | + + + | Home Phone [...] [place] | | | | | [address] | | + + + + + Care Team Providers + +------+ + | Care Auger Machine Offbearer Name | Role | Phone | [...] + | 08/21/ | Documentati | [facility] | Katharine Moncada, | Other (urgent | | 2019 | on | CARDIOLOGY [place] | Technologist | report) | | | | [address] | | | | | | [place] | | | | | | [address] | | | | | | [phone] | | | +--------+ + + + [...] [place] | | | | | | [address] | | | | | | | | +--------+---------+ + + + documented as of this encounter Visit Diagnoses Not on filedocumented in this encounter"
--- OUTSIDE RECORDS SUMMARY | ~2019-09-28 | XMS | Encounter Summary ---
Demographics + + + | Address | [address] | | | [place] [address] | + + + | Home Phone [...] [place] | | | | | [address] | | + + + + + Care Team Providers + +------+ + | Care Edge Inker Heels Name | Role | Phone | + [...] [address] | [address] [place], [place] | Hypothyroidism; | | | | [place] | [address] | GERD; BACK PAIN, | | | | [address] | | LUMBAR, WITH | | | | [phone] | | RADICULOPATHY; | | | | [...] [place] | | | | | | [address] | | | | | | | [...]
--- OUTSIDE RECORDS SUMMARY | ~2019-09-28 | XMS | Encounter Summary ---
Demographics + + + | Address | [address] | | | [place] [address] | + + + | Home Phone [...] [place] | | | | | [address] | | + + + + + Care Team Providers + +------+ + | Care Falafel Cart Cook Name | Role | Phone | [...] | Frandy Simons DO | [address] | | | | | of skin | [address] | [place], | | | | | sensation | [address] | [place] | | | | | Arthrodesis | [place], [place] | [address] | | | | | status Left | [address] | Phone: | | | | | leg | Phone: | [phone] | | | | | weakness | [phone] | Fax: | | | | | Procedures | Fax: | [phone] | | | | | MRI Lumbar | [phone] | | | | | | Spine [...] [address] | [address] [place], [place] | | | | | [place], [place] | [address] | | | | | [address] | | | | | | [phone] | | | +--------+ + + + [...] [place] | | | | | | [address] | | | | | | | [...] the round structure with high T1 and W3vevied in the right L3 vertebral | | [...] + | MISCELLANEOUS LAB | | | [phone] | + +---------+ + + | MISCELANIOUS LAB | | | [phone] | + +---------+ + + documented in [...]
--- OUTSIDE RECORDS SUMMARY | ~2019-09-28 | XMS | Encounter Summary ---
Demographics + + + | Address | [address] | | | [place] [address] | + + + | Home Phone [...] [place], [place] | | | | | [address] | | + + + + + Care Team Providers + +------+ + | Care Slunk Skin Curer Name | Role | Phone | + +------+ + PCP | Unavailable | + +------+ + Encounter Details +--------+ + + + + | Date | Type | Department | Care Team | Description | +--------+ + + + + | 08/21/ | Hospital | [facility] | | | | 1996 | Encounter | MED CTR LABORATORY | | | | | | [address] | | | | | | [place] | | | | | | [address] | | | | | | [phone] | | | +--------+ + + + [...] | | | | | [place] | | | | | | [address] | | | | | | | | +--------+---------+ + + + documented as of this encounter Visit Diagnoses Not on filedocumented in this encounter"
--- OUTSIDE RECORDS SUMMARY | ~2019-09-28 | XMS | Encounter Summary ---
Demographics + + + | Address | [address] | | | [place] [address] | + + + | Home Phone [...] [place] | | | | | [address] | | + + + + + Care Team Providers + +------+ + | Care Nursing Home Aide Name | Role | Phone | [...] + + | 08/16/ | Documentati | [facility] | Katharine Moncada, | Other (urgent | | 2019 | on | CARDIOLOGY [place] | Technologist | report) | | | | [address] | | | | | | [place] | | | | | | [address] | | | | | | [phone] | | | +--------+ + + + [...] [place] | | | | | | [address] | | | | | | | | +--------+---------+ + + + documented as of this encounter Visit Diagnoses Not on filedocumented in this encounter"
--- OUTSIDE RECORDS SUMMARY | ~2019-09-28 | XMS | Encounter Summary ---
Demographics + + + | Address | [address] | | | [place] [address] | + + + | Home Phone [...] [place] | | | | | [address] | | + + + + + Care Team Providers + +------+ + | Care Executive Team Leader Name | Role | Phone [...] [place] | | | | | | [address] | | | | | | [phone] | | | +--------+ + + + [...] [place] | | | | | | [address] | | | | | | | | +--------+---------+ + + + documented as of this encounter Visit Diagnoses Not on filedocumented in this encounter"
--- OUTSIDE RECORDS SUMMARY | ~2019-09-28 | XMS | Encounter Summary ---
Demographics + + + | Address | [address] | | | [place] [address] | + + + | Home Phone [...] [place] | | | | | [address] | | + + + + + Care Team Providers + +------+ + | Care Superintendent Institution Name | Role | Phone | + [...] + + | 07/19/ | Office | [facility] | Desiree Peterson DO | Syncope, unspecified | | 2019 | Visit | CARDIOLOGY [place] | [address] | syncope type | | | | [address] | [place], [place] | (Primary Dx); | | | | [address] [place] | [address] | Essential | | | | [place] | | hypertension; | | | | [address] | | Irregular heartbeat | | | | [phone] | | | +--------+---------+ + + + [...] Peterson DO - 07/19/2019 10:40 AM PDT [facility] Cardiology Cardiology Follow Up Note Reason for Consultation: Chest Pain Requesting Physician: Jose Ag History Obtained From: patient HISTORY OF PRESENT ILLNESS: Cardiac Problem List HTN HLD Bradycardia Non Cardiac Problem List Hepatosteatosis Obesity ROEGRS DDD Schizophrenia Bipolar disorder GERD DM II [...] by mouth daily. Blood Glucose Monitoring Suppl (YOGASMOGA VERIO FLEX SYSTEM) w/Device KIT by Does not ap ply route. budesonide-formoterol (SYMBICORT) 160-4.5 MCG/ACT inhaler Inhale 2 puffs into the lungs 2 (two) times daily. Calcium Carbonate Antacid 1000 MG tablet Take 1,000 mg by mouth 3 (three) times daily. Cholecalciferol (VITAMIN D3) 39365 units CAPS Take by mouth once a [...] [place] | | | | | | [address] | | | | | | | [...]
--- OUTSIDE RECORDS SUMMARY | ~2019-09-28 | XMS | Encounter Summary ---
Demographics + + + | Address | [address] | | | [place] [address] | + + + | Home Phone [...] [place], [place] | | | | | [address] | | + + + + + Care Team Providers + +------+ + | Care Subscription Clerk Name | Role | Phone | + +------+ + PCP | Unavailable | + +------+ + Encounter Details +--------+ + + + + | Date | Type | Department | Care Team | Description | +--------+ + + + + | 02/02/ | Hospital | [facility] | | | | 1997 | Encounter | MED CTR EMERGENCY | | | | | | [address] | | | | | | [place] | | | | | | [address] | | | | | | [phone] | | | +--------+ + + + [...] | | | | | [place] | | | | | | [address] | | | | | | | | +--------+---------+ + + + documented as of this encounter Visit Diagnoses Not on filedocumented in this encounter"
--- OUTSIDE RECORDS SUMMARY | ~2019-09-28 | XMS | Encounter Summary ---
Demographics + + + | Address | [address] | | | [place] [address] | + + + | Home Phone [...] [place] | | | | | [address] | | + + + + + Care Team Providers + +------+ + | Care Fingerprint Expert Name | Role | Phone | [...] [facility] | Frandy Teresa, | Other (surgery | | 2013 | | NEUROSURGERY [address] | DO [address] | reminder ) | | | | [address] | [address] [place], [place] | | | | | [place], [place] | [address] | | | | | [address] | | | | | | [phone] | | | +--------+ + + + [...] | | | | | [place] | | | | | | [id number] | | | | | | | | +--------+---------+ + + + documented as of this encounter Visit Diagnoses Not on filedocumented in this encounter"
--- OUTSIDE RECORDS SUMMARY | ~2019-09-28 | XMS | Encounter Summary ---
Demographics + + + | Address | [address] | | | [place] [address] | + + + | Home Phone [...] [place] | | | | | [address] | | + + + + + Care Team Providers + +------+ + | Care Fur Plucker Name | Role | Phone | + [...] + + | 07/24/ | Telephone | [facility] | Ashley Chávez | Other (Patient is | | 2019 | | CARDIOLOGY [place] Abad, Accounts Receivable Collector | worried about paying | | | | [address] | | for monitor. ) | | | | [place] | | | | | | [address] | | | | | | [phone] | | | +--------+ + + + [...] [place] | | | | | | [id number] | | | | | | | | +--------+---------+ + + + documented as of this encounter Visit Diagnoses Not on filedocumented in this encounter"
--- OUTSIDE RECORDS SUMMARY | ~2019-09-28 | XMS | Encounter Summary ---
Demographics + + + | Address | [address] | | | [place] [address] | + + + | Home Phone [...] [place], [place] | | | | | [address] | | + + + + + Care Team Providers + +------+ + | Care Precision Aircraft Structure Assembler Name | Role | Phone | + +------+ + PCP | Unavailable | + +------+ + Encounter Details +--------+ + + + + | Date | Type | Department | Care Team | Description | +--------+ + + + + | 02/16/ | Hospital | [facility] | | | | 1994 | Encounter | MED CTR LABORATORY | | | | | | [address] | | | | | | [place] | | | | | | [address] | | | | | | [phone] | | | +--------+ + + + [...] | | | | | [place] [address] [address] [place] [address] | | | | | | [address] | | | | | | | | +--------+---------+ + + + documented as of this encounter Visit Diagnoses Not on filedocumented in this encounter"
--- OUTSIDE RECORDS SUMMARY | ~2019-09-28 | XMS | Encounter Summary ---
Demographics + + + | Address | [address] | | | [place] [address] | + + + | Home Phone [...] | Author | [facility] | + + + | Organization | [facility] | + + + | Address | Unknown | + + + | Phone | Unavailable | + + + Support + + + + + | Name | Relationship | Address | Phone | + + + + + | Kelsy Bautista | ECON | [address] | | | | | [place] | | | | | [address] | | + + + + + Care Team Providers + +------+ + | Care Reach Truck Operator Name | Role | Phone | [...] | | | | | | [place] | | | | | | [place] [address] | | | | | | [phone] | | | +--------+ + + + [...]
--- OUTSIDE RECORDS SUMMARY | ~2019-09-28 | XMS | Encounter Summary ---
Demographics + + + | Address | [address] | | | [place] [address] | + + + | Home Phone [...] [place] | | | | | [address] | | + + + + + Care Team Providers + +------+ + | Care Visual Specialist Name | Role | Phone | [...] + + | 02/26/ | Emergency | [facility] | A[place], | CVA (cerebral | | 2015 | | MED CTR EMERGENCY | Davey Simons MD [address] | vascular accident) | | | | CENTER [address] | [address] [facility] | ([facility]) (Primary Dx) | | | | [place], [place] | [place] [address] | | | | | [address] | [phone] | | | | | [phone] | | | +--------+ + + + [...] + + + +---------+ + + | Albers-3 Fatty | Take 1,000 mg by | [...] | | | | | [place] | | | | | | [address] | | | | | | | [...] mL/min/1.73m2 | [facility] | | | [facility] | RATE,ESTIMATED | | MEDICAL | | | | mL/min/1.47h4Yyhs than | | CENTER - | | [...] | 9.1 | 8.3 - 10.5 | [facility] | | | | | mg/dL [...] [address] | [place] | [phone] | | [facility] | | [address] | | | - LABORATORY | | [...] | Eosinophils | | K/uL | [facility] | | | | | | MEDICAL [...] [address] | [place] | [phone] | | [facility] | | [address] | | | - LABORATORY | | [...] | ---- | | | 02/26/2015 13:10 [facility] | | | Emergency -numbness/facial droop 02/26/2015 08:15 [facility] | | | [facility] 02/19/2015 | | | 10:15 [facility] | | | [...] as uncontrolled 02/17/2015 | | | 08:22 [facility] Emergency | | | -Long-term [...] and uterus 02/14/2015 | | | 09:56 [facility] Emergency | | | -Disturbance [...] status 02/06/2015 10:46 | | | [facility] | | | -Generalized [...] residual deficits | | | 02/01/2015 21:38 [facility] | | | Emergency 01/22/2015 14:00 [facility] | | | Urgent Care [...] intervertebral disc | | | 01/16/2015 12:15 [facility] | | | Urgent Care [...] other | | | medications 01/07/2015 11:45 [facility] | | | Urgent Care [...] acquired hypothyroidism 12/30/2014 | | | 17:54 [facility] Emergency | | | -Obstructive [...] essential hypertension | | | 12/30/2014 14:30 [facility] | | | Urgent Care [...] | | -Cramp of limb 11/29/2014 16:15 [facility] | | | Urgent Care [...] ------ | | | --------- [address] | | | [facility] [address] [facility] [address] [facility] [address] | | | [facility] 7 0 Total | | | Note: Visits indicate total known visits. [place] Dx are the | | | number of primary diagnoses on the [facility]'s non-emergent dx list. | | | | [...]
--- OUTSIDE RECORDS SUMMARY | ~2019-09-28 | XMS | Encounter Summary ---
Demographics + + + | Address | [address] | | | [place] [address] | + + + | Home Phone [...] [place] | | | | | [address] | | + + + + + Care Team Providers + +------+ + | Care Full Roll Inspector Name | Role | Phone | [...] + | 09/26/ | Refill | [facility] | Frandy Teresa, | Medication Refill | | 2013 | | NEUROSURGERY [address] | DO [address] | | | | | [address] | [address] [place], [place] | | | | | [place], [place] | [id number] | | | | | [address] | | | | | | [phone] | | | +--------+--------+ + + + [...] | | | | | [place] | | | | | | [address] | | | | | | | | +--------+---------+ + + + documented as of this encounter Visit Diagnoses Not on filedocumented in this encounter"
--- OUTSIDE RECORDS SUMMARY | ~2019-09-28 | XMS | Encounter Summary ---
Demographics + + + | Address | [address] | | | [place] [address] | + + + | Home Phone [...] [place], [place] | | | | | [address] | | + + + + + Care Team Providers + +------+ + | Care Manager Interface Name | Role | Phone | + +------+ + PCP | Unavailable | + +------+ + Encounter Details +--------+ + + + + | Date | Type | Department | Care Team | Description | +--------+ + + + + | 07/17/ | Hospital | [facility] | | | | 1997 | Encounter | MED CTR EMERGENCY | | | | | | [address] | | | | | | [place] | | | | | | [address] | | | | | | [phone] | | | +--------+ + + + [...] | | | | | [place] | | | | | | [address] | | | | | | | | +--------+---------+ + + + documented as of this encounter Visit Diagnoses Not on filedocumented in this encounter"
--- OUTSIDE RECORDS SUMMARY | ~2019-09-28 | XMS | Encounter Summary ---
Demographics + + + | Address | [address] | | | [place] [address] | + + + | Home Phone [...] [place] | | | | | [address] | | + + + + + Care Team Providers + +------+ + | Care Cnc Laser Operator Name | Role | Phone | [...] | | | | | | | [address] | | | | | | | Phone: | | | | | | | [phone] | | | | | | | Fax: | | | | | | | [phone] | | +--------+ + + + + + Reason for Visit + + + | Reason | Comments | + + + | Follow-up | 3 mo po | + + + Encounter Details +--------+---------+ + + + | Date | Type | Department | Care Team | Description | +--------+---------+ + + + | 09/27/ | Office | [facility] | Frandy Teresa, | Lumbar spondylosis | | 2013 | Visit | NEUROSURGERY [address] | DO [address] | (Primary Dx); S/P | | | | [address] | [address] [place], [place] | lumbar fusion | | | | [place], [place] | [address] | | | | | [address] | | | | | | [phone] | | | +--------+---------+ + + + [...] m the original. Frandy Teresa DO [address] [place] [address] FAX: NEUROSURGERY FOLLOW-UP CHIEF COMPLAINT: Chief Complaint [...] Laterality: N/A; Surgeon: Frandy castellanos DO; Location: [facility] MAIN OR CURRENT MEDICATIONS: Current Outpatient [...] Take 15 mg by mouth nightl y. Roxobel-3 Fatty Acids (FISH OIL CONCENTRATE) 1000 MG [...] | | | | | [place], [place] | | | | | | [address] | | | | | | | [...]
--- OUTSIDE RECORDS SUMMARY | ~2019-09-28 | XMS | Encounter Summary ---
Demographics + + + | Address | [address] | | | [place] [address] | + + + | Home Phone [...] [place] | | | | | [address] | | + + + + + Care Team Providers + +------+ + | Care Ice Skating Instructor Name | Role | Phone | [...] + + | 06/28/ | Telephone | [facility] | Ashley Chávez | Talia (Patient | | 2019 | | CARDIOLOGY GENESIS Abad, Housing Inspector | called to cancel her | | | | [address] | | appointment) | | | | [place] | | | | | | [address] | | | | | | [phone] | | | +--------+ + + + [...] [place] | | | | | | [address] | | | | | | | | +--------+---------+ + + + documented as of this encounter Visit Diagnoses Not on filedocumented in this encounter"
--- OUTSIDE RECORDS SUMMARY | ~2019-09-28 | XMS | Encounter Summary ---
Demographics + + + | Address | [address] | | | [place] [address] | + + + | Home Phone [...] [place] | | | | | [address] | | + + + + + Care Team Providers + +------+ + | Care Executive Coordinator Name | Role | Phone | [...] [address] | [address] [place], [place] | | | | | [place], [place] | [id number] | | | | | [address] | | | | | | [phone] | | | +--------+ + + + [...] | | | | | [place] | | | | | | [address] | | | | | | | | +--------+---------+ + + + documented as of this encounter Visit Diagnoses Not on filedocumented in this encounter"
--- OUTSIDE RECORDS SUMMARY | ~2019-09-28 | XMS | Encounter Summary ---
Demographics + + + | Address | [address] | | | [place] [address] | + + + | Home Phone [...] [place] | | | | | [address] | | + + + + + Care Team Providers + +------+ + | Care Academic Guidance Specialist Name | Role | Phone | + +------+ + | Basim Bolanos MD | PCP | | + +------+ + Encounter Details +--------+ + + + + | Date | Type | Department | Care Team | Description | +--------+ + + + + | 03/30/ | Hospital | [facility] | Tyrese Neely MD | | | 2012 | Encounter | MED CTR MP INTRA OP | [address], [place] | | | | | [address] | [address] [place], [place] | | | | | [place], [place] | [address] | | | | | [address] | | | | | | [phone] | | | +--------+ + + + [...] + + + +---------+ + + | Ramona-3 Fatty | Take 1,000 mg by | [...] | | | | [place] | | | | | | [address] | | | | | | | [...] + | [facility] | [address] | [place] | [phone] | | [facility] | | [address] | | | - LABORATORY | | | | + + + + + | [facility] | [address] | [place] | | | [facility] | | [address] | | | - LABORATORY | | [...] + | [facility] | [address] | [place], [place] | [phone] | | [facility] | | [address] | | | - LABORATORY | | | | + + + + + | [facility] | [address] | [place], [place] | | | [facility] | | [address] | | | - LABORATORY | | | | + + + + + documented in this encounter Visit Diagnoses Not on filedocumented in this encounter"
--- OUTSIDE RECORDS SUMMARY | ~2019-09-28 | XMS | Encounter Summary ---
Demographics + + + | Address | [address] | | | [place] [address] | + + + | Home Phone [...] Author + + + | Author | [facility] | + + + | Organization | [facility] | + + + | Address | Unknown | + + + | Phone | Unavailable | + + + Support + + + + + | Name | Relationship | Address | Phone | + + + + + | Kelsy Bautista | ECON | [address] | | | | | [place] | | | | | [address] | | + + + + + Care Team Providers + +------+ + | Care Group Sales Representative Name | Role | Phone | + +------+ + PCP | Unavailable | + +------+ + Encounter Details +--------+ + + + + | Date | Type | Department | Care Team | Description | +--------+ + + + + | 07/03/ | Office | General Internal | Note, Outpatient | Progress Note | | 1996 | Visit-Trans | Medicine [address] | Clinic | | | | isabelle | [address] | | | | | | Mailcode: L475 | | | | | | Outpatient Clinic | | | | | | [place] [address] | | | | | | [place], [place] | | | | | | [address] | | | | | | [phone] | | | +--------+ + + + [...] as of this encounter Progress Notes Interface, Technical Services Assistant In - 12/11/2006 5:03 AM [facility] DATE: 07/03/97 INFECTIOUS DISEASE CLINIC: [...] differential. 3. We will also culture the irgo. 4. We will get a chest x-ray [...]
--- OUTSIDE RECORDS SUMMARY | ~2019-09-28 | XMS | Encounter Summary ---
Demographics + + + | Address | [address] | | | [place] [address] | + + + | Home Phone [...] [place] | | | | | [address] | | + + + + + Care Team Providers + +------+ + | Care Computer Systems Consultant Name | Role | Phone [...] [place] | | | | | | [address] | | | | | | [phone] | | | +--------+ + + + [...] [place] | | | | | | [address] | | | | | | | | +--------+---------+ + + + documented as of this encounter Visit Diagnoses Not on filedocumented in this encounter"
--- OUTSIDE RECORDS SUMMARY | ~2019-09-28 | XMS | Encounter Summary ---
Demographics + + + | Address | [address] | | | [place] [address] | + + + | Home Phone [...] [place] | | | | | [address] | | + + + + + Care Team Providers + +------+ + | Care Industrial Diamond Polisher Name | Role | Phone | [...] + + | 09/10/ | Documentati | [facility] | Katharine Moncada, | Other (urgent | | 2019 | on | CARDIOLOGY [place] | Technologist | report) | | | | [address] | | | | | | [place] | | | | | | [address] | | | | | | [phone] | | | +--------+ + + + [...] [place] | | | | | | [address] | | | | | | | | +--------+---------+ + + + documented as of this encounter Visit Diagnoses Not on filedocumented in this encounter"
--- OUTSIDE RECORDS SUMMARY | ~2019-09-28 | XMS | Encounter Summary ---
Demographics + + + | Address | [address] | | | [place] [address] | + + + | Home Phone [...] [place] | | | | | [address] | | + + + + + Care Team Providers + +------+ + | Care Deputy Coroner Investigator Name | Role | Phone | [...] | | | | | [address] | [place], [place] | | | | | [place], [place] | [address] | | | | | [address] | | | | | | [phone] | | | +--------+ + + + [...] [place] | | | | | | [address] | | | | | | | | +--------+---------+ + + + documented as of this encounter Visit Diagnoses Not on filedocumented in this encounter"
--- OUTSIDE RECORDS SUMMARY | ~2019-09-28 | XMS | Encounter Summary ---
Demographics + + + | Address | [address] | | | [place] [address] | + + + | Home Phone [...] [place] | | | | | [address] | | + + + + + Care Team Providers + +------+ + | Care National Sales Manager Name | Role | Phone [...] | | | spondylolist | | [address] [place] | | | | | hesis | | [place], | | | | | Spinal | | [place] [address] | | | | | stenosis, | | Phone: | | | | | lumbar | | [phone] | | | | | region, | | Fax: | | | | | without | | [phone] | | | | | neurogenic | [...] + + | 07/02/ | Hospital | [facility] | Frandy Teresa, | Spinal stenosis, | | 2013 | Encounter | MED CTR XRAY [address] | DO [address] | lumbar region, | | | | [place] | [address] [place], [place] | without neurogenic | | | | [place] [address] | [address] | claudication | | | | [phone] | | (Primary Dx) | +--------+ + [...] + + + +---------+ + + | Fence-3 Fatty | Take 1,000 mg by | [...] [place] | | | | | | [address] | | | | | | | [...]
--- OUTSIDE RECORDS SUMMARY | ~2019-09-28 | XMS | Encounter Summary ---
Demographics + + + | Address | [address] | | | [place] [address] | + + + | Home Phone [...] [place] | | | | | [address] | | + + + + + Care Team Providers + +------+ + | Care Manager Privacy Name | Role | Phone | + +------+ + | Natalee Andersen NP | PCP | | + +------+ + Encounter Details +--------+ + + + + | Date | Type | Department | Care Team | Description | +--------+ + + + + | 09/27/ | Hospital | [facility] | Frandy Teresa, | Lumbar spondylosis; | | 2013 | Encounter | MED CTR XRAY [address] | DO [address] | S/P lumbar fusion | | | | [place] | [address] [place], [place] | | | | | [place] [address] | [address] | | | | | [phone] | | | +--------+ + + + [...] + + + +---------+ + + | Clark-3 Fatty | Take 1,000 mg by | [...] [place] | | | | | | [address] | | | | | | | [...] + | MISCELLANEOUS LAB | | | [phone] | + +---------+ + + | MISCELANIOUS LAB | | | [phone] | + +---------+ + + documented in this encounter Visit Diagnoses + + | Diagnosis | + + | Lumbar spondylosis Lumbosacral spondylosis without myelopathy | + + | S/P lumbar fusion Arthrodesis status | + + documented in this encounter"
--- OUTSIDE RECORDS SUMMARY | ~2019-09-28 | XMS | Encounter Summary ---
Demographics + + + | Address | [address] | | | [place] [address] | + + + | Home Phone [...] [place] | | | | | [address] | | + + + + + Care Team Providers + +------+ + | Care Dish Technician Name | Role | Phone | [...] [place] | | | | | | [address] | | | | | | [phone] | | | +--------+ + + + [...] [place] | | | | | | [address] | | | | | | | | +--------+---------+ + + + documented as of this encounter Visit Diagnoses Not on filedocumented in this encounter"
--- OUTSIDE RECORDS SUMMARY | ~2019-09-28 | XMS | Encounter Summary ---
Demographics + + + | Address | [address] | | | [place] [address] | + + + | Home Phone [...] [place] | | | | | [address] | | + + + + + Care Team Providers + +------+ + | Care Administration Assistant Name | Role | Phone | [...] + | 07/19/ | Telephone | [facility] | Frandy Teresa, | Appointment | | 2013 | | NEUROSURGERY [address] | DO [address] | | | | | [address] | [address], [place] | | | | | [place], [place] | [address] | | | | | [address] | | | | | | [phone] | | | +--------+ + + + [...] [place] | | | | | | [address] | | | | | | | | +--------+---------+ + + + documented as of this encounter Visit Diagnoses Not on filedocumented in this encounter"
--- OUTSIDE RECORDS SUMMARY | ~2019-09-28 | XMS | Encounter Summary ---
Demographics + + + | Address | [address] | | | [place] [address] | + + + | Home Phone [...] [place] | | | | | [address] | | + + + + + Care Team Providers + +------+ + | Care Audio Visual Design Engineer Name | Role | Phone [...] | | | | | mellitus, | [address] | [place] | | | | | controlled | Phone: | [address] | | | | | (HCC) | [phone] | Phone: | | | | | History of | Fax: | [phone] | | | | | gastric | [phone] | Fax: | | | | | restrictive | | [phone] | | | | | surgery | [...] | | | y Type 2 | [address] | [place] | | | | | diabetes | Phone: | [address] | | | | | mellitus, | [phone] | Phone: | | | | | controlled | Fax: | [phone] | | | | | (HCC) | [phone] | Fax: | | | | | Obesity, | | [phone] | | | | | Class III, [...] | | FORTUNATO & Katharine BUCIO in [place]. | + + + | Other | [...] + + | 03/06/ | Office | [facility] | Katharine Cardona PA-C | Hypothyroidism due | | 2014 | Visit | MEDICINE [address] | [address] [facility] | to acquired atrophy | | | | [address] [place] | [place] [address] | of thyroid (Primary | | | | [place] [address] | [phone] | Dx); Essential | | | | [phone] | | hypertension; Iron | | | [...] t be different from the original. Ask [facility] if they think it might be helpful [...] Cont your meds as prescribed. F/U with [facility] as scheduled Neuropathy Continue gabapentin. May consider increase if pain is not controlled. May benefit from switching from Paxil to one of the SNRIs or TCAs for analgesic effects, holly manju, she is doing so well on her current regimen it may not be worth making any changes an d find alternate ways to deal with the pain. Would be worth discussing with [facility] Psych Back Pain Will refer to water therapy (aqua fitness) at [facility] as request ed. ROGERS [...] Cont your meds as prescribed. F/U with [facility] as scheduled Neuropathy Continue gabapentin. May consider [...] the pain. Would be worth discussing with [facility] professional. Back Pain Will refer to water therapy (aqua fitness) at [facility] as request ed. Cont home exercise, [...] plan. The above note was dictated using [employer] voice recognition software. It may have not been proofread in entirety. Minor errors in grammar may occur. CHIEF COMPLAINT Chief Complaint Patient presents with Establish Care Presents to establish care. Former patient of Natalee BUCIO & Katharine BUCIO in [place]. Other Possible stroke January 2015. Is now [...] auditory, at 36. 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 She is now very well controlled on Saphris, Depakote, and Paxi l. She is followed by [facility] in [place]. She has DM2 that is well controlled [...] worked up by steve rowe, Dr [place], [place]. More recently, she presented to ED with [...] Laterality: N/A; Surgeon: Frandy castellanos DO; Location: [facility] MAIN OR SOCIAL HISTORY History [...] mg by mouth Daily. Cholecalciferol (VITAMIN D-3) 52108 units CAPS Oral Take 50,000 Units by [...] Oral Take 10 mg by mouth nightly. Admire-3 Fatty Acids (FISH OIL CONCENTRATE) 1000 MG [...] [place] | | | | | | [address]182 | | | | | | | [...] 12 | 7 - 18 mg/dL | [facility] | | | | | | [facility] | | | | | | MEDICAL | | | | | | CENTER - | | | | | | LABORATORY | | + + + + + + | Creatinine | 0.66 | 0.60 - 1.30 | [facility] | | | | | mg/dL | [facility] | | | | | | MEDICAL | | | | | | CENTER - | | | | | | LABORATORY | | + + + + + + | eGFR if not | >60Comment: GLOMERULAR | >=60 | [facility] | | | | FILTRATION | mL/min/1.73m2 | [facility] | | | GHANAIAN | RATE,ESTIMATED | | MEDICAL | | | | mL/min/1.09u7Ejel than | | CENTER - | | [...] [address] | [place] | [phone] | | [facility] | | [address] | | | - LABORATORY | | [...]
--- OUTSIDE RECORDS SUMMARY | ~2019-09-28 | XMS | Encounter Summary ---
Demographics + + + | Address | [address] | | | [place] [address] | + + + | Home Phone [...] [place] | | | | | [address] | | + + + + + Care Team Providers + +------+ + | Care Oiler Bander Name | Role | Phone | [...] [address] | [address] [place], [place] | | | | | [place], [place] | [address] | | | | | [address] | | | | | | [phone] | | | +--------+ + + + [...] [place] | | | | | | [address] | | | | | | | [...] + | MISCELLANEOUS LAB | | | [phone] | + +---------+ + + | MISCELANIOUS LAB | | | [phone] | + +---------+ + + documented in this encounter Visit Diagnoses + + | Diagnosis | + + | Back pain - Primary Backache, unspecified | + + documented in this encounter"
--- OUTSIDE RECORDS SUMMARY | ~2019-09-28 | XMS | Encounter Summary ---
Demographics + + + | Address | [address] | | | [place] [address] | + + + | Home Phone [...] [place] | | | | | [address] | | + + + + + Care Team Providers + +------+ + | Care Crop Quantitative Geneticist Name | Role | Phone | [...] + + | 08/09/ | Documentati | [facility] | Katharine Moncada, | Other (end of study) | | 2019 | on | CARDIOLOGY [place] | Technologist | | | | | [address] | | | | | | [place], [place] | | | | | | [address] | | | | | | [phone] | | | +--------+ + + + [...] Technologist - 08/09/2019 11:59 PM PDT Cardiac Blending Tank Tender Helper Date of Event Monitor: 08/09/19 Referring Physician: [...] [place] | | | | | | [address] | | | | | | | | +--------+---------+ + + + documented as of this encounter Visit Diagnoses Not on filedocumented in this encounter"
--- OUTSIDE RECORDS SUMMARY | ~2019-09-28 | XMS | Encounter Summary ---
Demographics + + + | Address | [address] | | | [place] [address] | + + + | Home Phone [...] [place] | | | | | [address] | | + + + + + Care Team Providers + +------+ + | Care Concrete Vibrator Operator Name | Role | Phone | [...] + + | 01/02/ | Telephone | [facility] | Frandy Teresa, | Other (6m x-ray ) | | 2014 | | NEUROSURGERY [address] | DO [address] | | | | | [address] | [address] [place], [place] | | | | | [place], [place] | [id number] | | | | | [address] | | | | | | [phone] | | | +--------+ + + + [...] [place] | | | | | | [address] | | | | | | | | +--------+---------+ + + + documented as of this encounter Visit Diagnoses Not on filedocumented in this encounter"
--- OUTSIDE RECORDS SUMMARY | ~2019-09-28 | XMS | Encounter Summary ---
Demographics + + + | Address | [address] | | | [place] [address] | + + + | Home Phone [...] [place] | | | | | [address] | | + + + + + Care Team Providers + +------+ + | Care Associate Director Data & Analytics Name | Role | Phone | [...] + | 06/20/ | Telephone | [facility] | Frandy Teresa, | Other (surgery | | 2013 | | NEUROSURGERY [address] | DO [address] | reminder ) | | | | [address] | [address] [place], [place] | | | | | [place], [place] | [address] | | | | | [address] | | | | | | [phone] | | | +--------+ + + + [...] | | | | | [place] | | | | | | [address] | | | | | | | | +--------+---------+ + + + documented as of this encounter Visit Diagnoses Not on filedocumented in this encounter"
--- OUTSIDE RECORDS SUMMARY | ~2019-09-28 | XMS | Encounter Summary ---
Demographics + + + | Address | [address] | | | [place] [address] | + + + | Home Phone [...] [place] | | | | | [address] | | + + + + + Care Team Providers + +------+ + | Care Harbor Engineer Name | Role | Phone | [...] + + | 08/14/ | Telephone | [facility] | Ashley Chávez | Other (Patient was | | 2019 | | CARDIOLOGY [place] Abad, Clinical Trial Specialist | anxious about urgent | | | | [address] | | reports. ) | | | | [place] | | | | | | [address] | | | | | | [phone] | | | +--------+ + + + [...] [place] | | | | | | [address] | | | | | | | | +--------+---------+ + + + documented as of this encounter Visit Diagnoses Not on filedocumented in this encounter"
--- OUTSIDE RECORDS SUMMARY | ~2019-09-28 | XMS | Encounter Summary ---
Demographics + + + | Address | [address] | | | [place] [address] | + + + | Home Phone [...] [place], [place] | | | | | [address] | | + + + + + Care Team Providers + +------+ + | Care Interior Design Assistant Name | Role | Phone | + +------+ + PCP | Unavailable | + +------+ + Encounter Details +--------+ + + + + | Date | Type | Department | Care Team | Description | +--------+ + + + + | 09/24/ | Hospital | [facility] | | | | 1993 | Encounter | MED CTR LABORATORY | | | | | | [address] | | | | | | [place] | | | | | | [address] | | | | | | [phone] | | | +--------+ + + + [...] | | | | | [place] | | | | | | [address] | | | | | | | | +--------+---------+ + + + documented as of this encounter Visit Diagnoses Not on filedocumented in this encounter"
--- OUTSIDE RECORDS SUMMARY | ~2019-09-28 | XMS | Encounter Summary ---
Demographics + + + | Address | [address] | | | [place] [address] | + + + | Home Phone [...] [place], [place] | | | | | [address] | | + + + + + Care Team Providers + +------+ + | Care National Coverage Specialist Name | Role | Phone | + +------+ + PCP | Unavailable | + +------+ + Encounter Details +--------+ + + + + | Date | Type | Department | Care Team | Description | +--------+ + + + + | 12/24/ | Hospital | [facility] | | | | 1998 | Encounter | MED CTR XRAY [address] | | | | | | [address] | | | | | | [place] [address] | | | | | | [phone] | | | +--------+ + + + [...] | | | | | [place] | | | | | | [address] | | | | | | | | +--------+---------+ + + + documented as of this encounter Visit Diagnoses Not on filedocumented in this encounter"
--- OUTSIDE RECORDS SUMMARY | ~2019-09-28 | XMS | Encounter Summary ---
Demographics + + + | Address | [address] | | | [place] [address] | + + + | Home Phone [...] [place] | | | | | [address] | | + + + + + Care Team Providers + +------+ + | Care Surgical Dental Assistant Name | Role | Phone [...] [address] | [address] [place], [place] | Hypothyroidism; | | | | [place], [place] | [address] | GERD; BACK PAIN, | | | | [address] | | LUMBAR, WITH | | | | [phone] | | RADICULOPATHY; | | | | [...] [place] | | | | | | [address] | | | | | | | [...]
--- OUTSIDE RECORDS SUMMARY | ~2019-09-28 | XMS | Encounter Summary ---
Demographics + + + | Address | [address] | | | [place] [address] | + + + | Home Phone [...] [place], [place] | | | | | [address] | | + + + + + Care Team Providers + +------+ + | Care Pad Making Machine Operator Name | Role | Phone | + +------+ + PCP | Unavailable | + +------+ + Encounter Details +--------+ + + + + | Date | Type | Department | Care Team | Description | +--------+ + + + + | 02/28/ | Hospital | [facility] | Deon Gonzales | | | 2011 | Encounter | MED CTR SLEEP | MD [address] | | | | | [place] [address] | [address] [place] | | | | | [place], [place] | [place] [address] | | | | | [address] | [phone] | | | | | [phone] | | | +--------+ + + + [...] [place] | | | | | | [address] | | | | | | | | +--------+---------+ + + + documented as of this encounter Visit Diagnoses Not on filedocumented in this encounter"
--- OUTSIDE RECORDS SUMMARY | ~2019-09-28 | XMS | Encounter Summary ---
Demographics + + + | Address | [address] | | | [place] [address] | + + + | Home Phone [...] [place], [place] | | | | | [address] | | + + + + + Care Team Providers + +------+ + | Care C D Reactor Operator Name | Role | Phone | + +------+ + PCP | Unavailable | + +------+ + Encounter Details +--------+ + + + + | Date | Type | Department | Care Team | Description | +--------+ + + + + | 05/23/ | Hospital | [facility] | Dale, Heath E A, | | | 2012 | Encounter | MED CTR XRAY [address] | MD [address] | | | | | [place] | [place] | | | | | [place] [address] | [address] | | | | | [phone] | | | +--------+ + + + [...] + + + +---------+ + + | [place]-3 Fatty | Take 1,000 mg by | [...] [place] | | | | | | [address] | | | | | | | [...] At | + + + | [facility] Diagnostic Imaging Department | [facility] | | [address] | [facility] | | LUMBAR SPINE MR WITHOUT [...] Transcribed Date/Time: | | | 05/23/2012 16:55 Cutlery Grinder: <Electronically Signed | | | by Adriano Anne MD> 05/23/12 3995 | | + + + + + | Procedure Note | + + | Manohar Martinez Conversion - 11/30/2013 5:47 PM [facility] | | Diagnostic Imaging Department [address] [place] [address] | | LUMBAR SPINE MR WITHOUT CONTRAST, [...] 16:37 | |Transcribed Date/Time: 05/23/2012 16:55 | |Cutlery Grinder: | |<Electronically Signed by Adriano Anne MD> [...]
--- OUTSIDE RECORDS SUMMARY | ~2019-09-28 | XMS | Encounter Summary ---
Demographics + + + | Address | [address] | | | [place] [address] | + + + | Home Phone [...] [place] | | | | | [address] | | + + + + + Care Team Providers + +------+ + | Care Vice President Payment Name | Role | Phone | + [...] | | [address] | [place], [place] | | | | | [place], [place] | [address] | | | | | [address] | | | | | | [phone] | | | +--------+ + + + [...] | | | | | [place] | | | | | | [address] | | | | | | | [...] 0.83 m/s | | | MV Dec Winkler: 2.85 m/s2 MV DecT: 282.89 ms MV E Teodoro: 0.80 | | | m/s MV E/A Ratio: 0.96 E/E' Sept: 12.59 E' Lat: 0.08 m/s | | | E' Sept: 0.06 m/s RAP: 10 mmHg RV S': 0.11 m/s RVSP: | | | 27.96 mmHg TR maxP.96 mmHg TR Vmax: 2.11 m/s | | | Anesthesiology Physician: Authenticated by: Desiree Peterson MD Report Date/Time: | | | -- [id number]:[id number] | | + + + + + [...] (A-L): 19.60 | | ml/m2LAAs A2C: 15.44 [id number] A-L A2C: 43.84 mlLAESV MOD A2C: 42.12 mlLALs A2C: | | 4.61 cmLAAs A4C: 14.18 [id number] A-L A4C: 38.73 mlLAESV MOD A4C: 37.04 mlLALs A4C: | | 4.41 cmRAAs: 12.15 [id number] A-L: 28.54 mlRAESV MOD: 28.66 mlRALs: 4.39 | | cmTAPSE: 2.42 cmAV Env.Ti: 293.94 msAV maxP.18 mmHgAV meanP.09 mmHgAV | | Vmax: 1.88 m/Eddie Vmean: 1.25 m/Eddie VTI: 36.84 cmAVA Vmax: 2.06 cm2AVA (VTI): | | 2.24 pb4KWOT Vmax: 0.00 cm2/m2AVAI (VTI): 0.00 cm2/m2LVOT Env.Ti: 299.59 msLVOT | | maxP.52 mmHgLVOT meanP.65 mmHgLVSI Dopp: 38.55 ml/m2LVSV Dopp: 82.89 | | mlLVOT Vmax: 1.27 m/sLVOT Vmean: 0.91 m/sLVOT VTI: 27.27 cmMV A Teodoro: 0.83 m/sMV | | Dec Winkler: 2.85 m/s2MV DecT: 282.89 msMV E Teodoro: 0.80 m/sMV E/A Ratio: 0.96E/E' | | Sept: 12.59E' Lat: 0.08 m/sE' Sept: 0.06 m/sRAP: 10 mmHgRV S': 0.11 m/sRVSP: | | 27.96 mmHgTR maxP.96 mmHgTR Vmax: 2.11 m/s Anesthesiology Physician:Authenticated by: | | Desiree Peterson MDReport Date/Time: -- [id number]:[id number] IMPRESSION: 1. Overall left | | ventricular [...] A Teodoro: 0.83 m/s | |MV Dec Winkler: 2.85 m/s2 | |MV DecT: 282.89 ms | |MV E Teodoro: 0.80 m/s | |MV E/A Ratio: 0.96 | |E/E' Sept: 12.59 | |E' Lat: 0.08 m/s | |E' Sept: 0.06 m/s | |RAP: 10 mmHg | |RV S': 0.11 m/s | |RVSP: 27.96 mmHg | |TR maxP.96 mmHg | |TR Vmax: 2.11 m/s | | | |Anesthesiology Physician: | |Authenticated by: Desiree Peterson MD | |Report Date/Time: -- [id number]:[id number] | | | |IMPRESSION: | |1. Overall [...]
--- OUTSIDE RECORDS SUMMARY | ~2019-09-28 | XMS | Encounter Summary ---
Demographics + + + | Address | [address] | | | [place] [address] | + + + | Home Phone [...] [place] | | | | | [address] | | + + + + + Care Team Providers + +------+ + | Care Computer Training Specialist Name | Role | Phone [...] + + | 08/28/ | Telephone | [facility] | Ashley Chávez | Other (Patient has | | 2019 | | CARDIOLOGY [place] Abad, Laboratory Geneticist | questions about | | | | [address] | | monitor. ) | | | | [place] | | | | | | [address] | | | | | | [phone] | | | +--------+ + + + [...] [place] | | | | | | [address] | | | | | | | | +--------+---------+ + + + documented as of this encounter Visit Diagnoses Not on filedocumented in this encounter"
--- OUTSIDE RECORDS SUMMARY | ~2019-09-28 | XMS | Encounter Summary ---
Demographics + + + | Address | [address] | | | [place] [address] | + + + | Home Phone [...] [place], [place] | | | | | [address] | | + + + + + Care Team Providers + +------+ + | Care Flight Attendant Ramp Name | Role | Phone | + +------+ + PCP | Unavailable | + +------+ + Encounter Details +--------+ + + + + | Date | Type | Department | Care Team | Description | +--------+ + + + + | 01/26/ | Hospital | [facility] | Dale, Heath E A, | | | 2012 | Encounter | MED CTR XRAY [address] | MD [address] | | | | | [address] | [place] | | | | | [place] [address] | [address] | | | | | [phone] | | | +--------+ + + + [...] [place] | | | | | | [address] | | | | | | | [...] + + + | [facility] Diagnostic Imaging Department | [facility] | | [address] | [facility] | | BILATERAL KNEES, THREE [...] Transcribed | | | Date/Time: 01/27/2012 17:18 Transport Truck Driver: | | | <Electronically Signed by Willie Perry MD> 01/27/12 6104 | | + + + + + | Procedure Note | + + | Juan, Rad Conversion - 11/30/2013 5:03 PM [facility] | | Diagnostic Imaging Department [address] [place] [address] | | BILATERAL KNEES, THREE VIEWS: 01/27/2012 [...] 17:12 | |Transcribed Date/Time: 01/27/2012 17:18 | |Transport Truck Driver: | |<Electronically Signed by Willie Perry MD> 01/27/12 620 | + + + +---------+ + + [...]
--- OUTSIDE RECORDS SUMMARY | ~2019-09-28 | XMS | Encounter Summary ---
Demographics + + + | Address | [address] | | | [place] [address] | + + + | Home Phone [...] [place] | | | | | [address] | | + + + + + Care Team Providers + +------+ + | Care Crisis Nurse Name | Role | Phone | [...] + + | 09/19/ | Telephone | [facility] | Ashley Chávez | Talia (Patient | | 2019 | | CARDIOLOGY [place] Abad, Dental Laboratory Assistant | calling to be seen | | | | [address] | | ) | | | | [place] | | | | | | [address] | | | | | | [phone] | | | +--------+ + + + [...] [place] | | | | | | [address] | | | | | | | | +--------+---------+ + + + documented as of this encounter Visit Diagnoses Not on filedocumented in this encounter"
--- OUTSIDE RECORDS SUMMARY | ~2019-09-28 | XMS | Encounter Summary ---
Demographics + + + | Address | [address] | | | [place] [address] | + + + | Home Phone [...] [place] | | | | | [address] | | + + + + + Care Team Providers + +------+ + | Care Plate Shear Operator Name | Role | Phone | + +------+ + | Natalee Andersen NP | PCP | | + +------+ + Encounter Details +--------+ + + + + | Date | Type | Department | Care Team | Description | +--------+ + + + + | 06/25/ | Hospital | [facility] | Frandy Teresa, | Acquired | | 2014 | Encounter | MED CTR XRAY [address] | DO [address] | spondylolisthesis | | | | [place] | [address] [place], [place] | | | | | [place] [address] | [address] | | | | | [phone] | | | +--------+ + + + [...] + + + +---------+ + + | [place]-3 Fatty | Take 1,000 mg by | [...] [place] | | | | | | [address] | | | | | | | | +--------+---------+ + + + documented as of this encounter Visit Diagnoses + + | Diagnosis | + + | Acquired spondylolisthesis | + + documented in this encounter"
--- OUTSIDE RECORDS SUMMARY | ~2019-09-28 | XMS | Encounter Summary ---
Demographics + + + | Address | [address] | | | [place] [address] | + + + | Home Phone [...] [place] | | | | | [address] | | + + + + + Care Team Providers + +------+ + | Care Chuck Boner Name | Role | Phone | + +------+ + | Adriano Patrick MD | PCP | | + +------+ + Encounter Details +--------+ + + + + | Date | Type | Department | Care Team | Description | +--------+ + + + + | 05/16/ | Orders Only | [facility] | Provider, | | | 2018 | | SYSTEM GENERIC OP | MD [address] | | | | | CONVERSION [address] | [address] | | | | | [address] [place], [place] | [place] [address] | | | | | [address] | | | | | | [phone] | | | +--------+ + + + [...] | | | | | [place], [place] | | | | | | [address] | | | | | | | | +--------+---------+ + + + documented as of this encounter Visit Diagnoses Not on filedocumented in this encounter"
--- OUTSIDE RECORDS SUMMARY | ~2019-09-28 | XMS | Encounter Summary ---
Demographics + + + | Address | [address] | | | [place] [address] | + + + | Home Phone [...] Author + + + | Author | [facility] | + + + | Organization | [facility] | + + + | Address | Unknown | + + + | Phone | Unavailable | + + + Support + + + + + | Name | Relationship | Address | Phone | + + + + + | Kelsy Bautista | E[address] | [address] | | | | | [place] | | | | | [address] | | + + + + + Care Team Providers + +------+ + | Care Ibm Bpm Architect Name | Role | Phone | [...] [address] | | | | | | [place], [place] | | | | | | [address] | | | +--------+ + + + [...]
--- OUTSIDE RECORDS SUMMARY | ~2019-09-28 | XMS | Encounter Summary ---
Demographics + + + | Address | [address] | | | [place] [address] | + + + | Home Phone [...] [place] | | | | | [address] | | + + + + + Care Team Providers + +------+ + | Care Broadcast Maintenance Engineer Name | Role | Phone | [...] | Frandy Simons DO | [address] | | | | | of skin | [address] | [place], | | | | | sensation | [address] | [place] | | | | | Arthrodesis | [place], [place] | [address] | | | | | status Left | [address] | Phone: | | | | | leg | Phone: | [phone] | | | | | weakness | [phone] | Fax: | | | | | Procedures | Fax: | [phone] | | | | | MRI Lumbar | [phone] | | | | | | Spine [...] | Frandy Simons DO | [address] | | | | | of skin | [address] | [place], | | | | | sensation | [address] | [place] | | | | | Arthrodesis | [place] | [address] | | | | | status Left | [address] | Phone: | | | | | leg | Phone: | [phone] | | | | | weakness | [phone] | Fax: | | | | | Procedures | Fax: | [phone] | | | | | MRI Lumbar | [phone] | | | | | | Spine wo | | | | | | | Contrast | | | +--------+--------+ + + + + Encounter Details +--------+ + + + + | Date | Type | Department | Care Team | Description | +--------+ + + + + | 08/19/ | Hospital | [facility] | Frandy Teresa, | Status post lumbar | | 2013 | Encounter | MED CTR MRI [address] | DO [address] | spinal fusion; Left | | | | [address] [place], | [address] [place] | leg numbness; Left | | | | [place] [address] | [address] | leg weakness | | | | [phone] | | | +--------+ + + + [...] [place] | | | | | | [address] | | | | | | | [...] the round structure with high T1 and M1ogjhos in the right L3 vertebral | | [...] + | MISCELLANEOUS LAB | | | [phone] | + +---------+ + + | MISCELANIOUS LAB | | | [phone] | + +---------+ + + documented in [...]
--- OUTSIDE RECORDS SUMMARY | ~2019-09-28 | XMS | Encounter Summary ---
Demographics + + + | Address | [address] | | | [place] [address] | + + + | Home Phone [...] [place], [place] | | | | | [address] | | + + + + + Care Team Providers + +------+ + | Care Warehouse Manager Name | Role | Phone | + +------+ + PCP | Unavailable | + +------+ + Encounter Details +--------+ + + + + | Date | Type | Department | Care Team | Description | +--------+ + + + + | 09/10/ | Hospital | [facility] | | | | 1992 | Encounter | MED CTR LABORATORY | | | | | | [address] | | | | | | [place] | | | | | | [address] | | | | | | [phone] | | | +--------+ + + + [...] | | | | | [place] | | | | | | [address] | | | | | | | | +--------+---------+ + + + documented as of this encounter Visit Diagnoses Not on filedocumented in this encounter"
--- OUTSIDE RECORDS SUMMARY | ~2019-09-28 | XMS | Encounter Summary ---
Demographics + + + | Address | [address] | | | [place] [address] | + + + | Home Phone [...] [place], [place] | | | | | [address] | | + + + + + Care Team Providers + +------+ + | Care Air Quality Specialist Name | Role | Phone | + +------+ + PCP | Unavailable | + +------+ + Encounter Details +--------+ + + + + | Date | Type | Department | Care Team | Description | +--------+ + + + + | 12/31/ | Hospital | [facility] | | | | 1996 | Encounter | MED CTR XRAY [address] | | | | | | [address] | | | | | | [place] [address] | | | | | | [phone] | | | +--------+ + + + [...] | | | | | [place] | | | | | | [address] | | | | | | | | +--------+---------+ + + + documented as of this encounter Visit Diagnoses Not on filedocumented in this encounter"
--- OUTSIDE RECORDS SUMMARY | ~2019-09-28 | XMS | Encounter Summary ---
Demographics + + + | Address | [address] | | | [place] [address] | + + + | Home Phone [...] [place], [place] | | | | | [address] | | + + + + + Care Team Providers + +------+ + | Care Environmental Consultant Name | Role | Phone | [...] | SR | | | | | [phone] | | | +--------+ + + + [...] [place] | | | | | | [address] | | | | | | | | +--------+---------+ + + + documented as of this encounter Visit Diagnoses Not on filedocumented in this encounter
--- OUTSIDE RECORDS SUMMARY | ~2019-09-28 | XMS | Encounter Summary ---
Demographics + + + | Address | [address] | | | [place] [address] | + + + | Home Phone [...] [place] | | | | | [address] | | + + + + + Care Team Providers + +------+ + | Care Storage Battery Tester Name | Role | Phone | + +------+ + | Basim Bolanos MD | PCP | | + +------+ + Encounter Details +--------+ + + + + | Date | Type | Department | Care Team | Description | +--------+ + + + + | 02/22/ | Abstract | [facility] [place] | [facility], | | | 2012 | | GASTROENTEROLOGY | FORTUNATO Thomas [address] | | | | | [address] | [place], [address] | | | | | [address] [place], [place] | [place], [place] | | | | | [address] | [address] | | | | | [phone] | | | +--------+ + + + [...] [place] | | | | | | [address] | | | | | | | | +--------+---------+ + + + documented as of this encounter Visit Diagnoses Not on filedocumented in this encounter"
--- OUTSIDE RECORDS SUMMARY | ~2019-09-28 | XMS | Encounter Summary ---
Demographics + + + | Address | [address] | | | [place] [address] | + + + | Home Phone [...] [place] | | | | | [address] | | + + + + + Care Team Providers + +------+ + | Care Paint Preparer Name | Role | Phone | [...] + + | 08/20/ | Documentati | [facility] | Katharine Moncada, | Other (urgent | | 2019 | on | CARDIOLOGY [place] | Technologist | report) | | | | [address] | | | | | | [place] | | | | | | [address] | | | | | | [phone] | | | +--------+ + + + [...] [place] | | | | | | [address] | | | | | | | | +--------+---------+ + + + documented as of this encounter Visit Diagnoses Not on filedocumented in this encounter"
--- OUTSIDE RECORDS SUMMARY | ~2019-09-28 | XMS | Encounter Summary ---
Demographics + + + | Address | [address] | | | [place] [address] | + + + | Home Phone [...] [place] | | | | | [address] | | + + + + + Care Team Providers + +------+ + | Care Cabinet And Trim Installer Name | Role | Phone | [...] | 03/10/ | Refill | [facility] [place] [facility] | Katharine Cardona PA-C | Medication Refill | | 2014 | | MEDICINE [address] | [address] [place] | | | | | [address] [place] | [place] [address] | | | | | [place] [address] | [phone] | | | | | [phone] | | | +--------+--------+ + + + [...] [place] | | | | | | [address] | | | | | | | | +--------+---------+ + + + documented as of this encounter Visit Diagnoses + + | Diagnosis | + + | Essential hypertension - Primary Unspecified essential hypertension | + + documented in this encounter"
--- OUTSIDE RECORDS SUMMARY | ~2019-09-28 | XMS | Encounter Summary ---
Demographics + + + | Address | [address] | | | [place] [address] | + + + | Home Phone [...] [place], [place] | | | | | [address] | | + + + + + Care Team Providers + +------+ + | Care Patent Litigation Associate Name | Role | Phone | + +------+ + PCP | Unavailable | + +------+ + Encounter Details +--------+ + + + + | Date | Type | Department | Care Team | Description | +--------+ + + + + | 06/23/ | Hospital | [facility] | | | | 2000 | Encounter | MED CTR GENERIC OP | | | | | | CONV DEPT [address] | | | | | | [place], | | | | | | [place] [address] | | | | | | [phone] | | | +--------+ + + + [...] | | | | | [place] | | | | | | [address] | | | | | | | | +--------+---------+ + + + documented as of this encounter Visit Diagnoses Not on filedocumented in this encounter"
--- OUTSIDE RECORDS SUMMARY | ~2019-09-28 | XMS | Encounter Summary ---
Demographics + + + | Address | [address] | | | [place] [address] | + + + | Home Phone [...] [place] | | | | | [address] | | + + + + + Care Team Providers + +------+ + | Care Video Production Assistant Name | Role | Phone | [...] + + | 09/10/ | Documentati | [facility] | Katharine Moncada, | Other (urgent | | 2019 | on | CARDIOLOGY [place] | Technologist | report) | | | | [address] | | | | | | [place] | | | | | | [address] | | | | | | [phone] | | | +--------+ + + + [...] [place] | | | | | | [address] | | | | | | | | +--------+---------+ + + + documented as of this encounter Visit Diagnoses Not on filedocumented in this encounter"
--- OUTSIDE RECORDS SUMMARY | ~2019-09-28 | XMS | Encounter Summary ---
Demographics + + + | Address | [address] | | | [place] [address] | + + + | Home Phone [...] [place] | | | | | [address] | | + + + + + Care Team Providers + +------+ + | Care Lapel Stitcher Name | Role | Phone | [...] | | | | | Procedures | TEXTILE CONVERTER [address] | [address] | | | | | [place] OFFICE | | [place] [address] | | | | | CONSULTATION | [address] | [place] | | | | | NEW/ESTAB | [facility], | [address] Phone: | | | | | PATIENT 60 | [place] [address] | [phone] | | | | | MIN | Phone: | Fax: | | | | | | [phone] | [phone] | | | | | | Fax: | | | | | | | [phone] | | +--------+--------+ + + + + Encounter Details +--------+---------+ + + + | Date | Type | Department | Care Team | Description | +--------+---------+ + + + | 05/02/ | Office | [facility] | Frandy Teresa, | Spondylolisthesis of | | 2013 | Visit | NEUROSURGERY [address] | DO [address] | lumbar region | | | | [address] | [place] [address] [place], [place] | (Primary Dx); Lumbar | | | | [place], [place] | [id number] | stenosis; Lumbar | | | | [address] | | radicular pain; | | | | [phone] | | Lumbago | +--------+---------+ + + [...] [address] [place] [address] FAX: NEUROSURGERY HISTORY AND PHYSICAL EXAMINATION CHIEF [...] Take 15 mg by mouth nightl y. [place]-3 Fatty Acids (FISH OIL CONCENTRATE) 1000 [...] 5 5 Ulnar Intrinsics 5 5 Computer Systems Designer Strength 5 5 Hip Flexion 5 [...] | | | | | [place] | | | | | | [address] | | | | | | | [...]
--- OUTSIDE RECORDS SUMMARY | ~2019-09-28 | XMS | Encounter Summary ---
Demographics + + + | Address | [address] | | | [place] [address] | + + + | Home Phone [...] [place], [place] | | | | | [address] | | + + + + + Care Team Providers + +------+ + | Care Electrical Systems Designer Name | Role | Phone | + +------+ + PCP | Unavailable | + +------+ + Encounter Details +--------+ + + + + | Date | Type | Department | Care Team | Description | +--------+ + + + + | 12/27/ | Hospital | [facility] | | | | 1997 - | Encounter | MED CTR GENERIC PSY | | | | | | CONV DEPT [address] | | | | 01/01/ | | [address] [place], | | | | 1997 | | [place] [address] | | | | | | [phone] | | | +--------+ + + + [...] [place] | | | | | | [address] | | | | | | | | +--------+---------+ + + + documented as of this encounter Visit Diagnoses Not on filedocumented in this encounter"
--- OUTSIDE RECORDS SUMMARY | ~2019-09-28 | XMS | Encounter Summary ---
Demographics + + + | Address | [address] | | | [place] [address] | + + + | Home Phone [...] [place], [place] | | | | | [address] | | + + + + + Care Team Providers + +------+ + | Care Control Systems Engineer Name | Role | Phone [...] Location | | | | | | [phone] | | | +--------+ + + + [...] [place] | | | | | | [address] | | | | | | | | +--------+---------+ + + + documented as of this encounter Visit Diagnoses Not on filedocumented in this encounter"
--- OUTSIDE RECORDS SUMMARY | ~2019-09-28 | XMS | Encounter Summary ---
Demographics + + + | Address | [address] | | | [place] [address] | + + + | Home Phone [...] [place], [place] | | | | | [address] | | + + + + + Care Team Providers + +------+ + | Care Safety Trainer Name | Role | Phone | + +------+ + PCP | Unavailable | + +------+ + Encounter Details +--------+ + + + + | Date | Type | Department | Care Team | Description | +--------+ + + + + | 04/01/ | Hospital | [facility] | | | | 1998 | Encounter | MED CTR XRAY [address] | | | | | | [address] | | | | | | [place] [address] | | | | | | [phone] | | | +--------+ + + + [...] | | | | | [place] | | | | | | [address] | | | | | | | | +--------+---------+ + + + documented as of this encounter Visit Diagnoses Not on filedocumented in this encounter"
--- OUTSIDE RECORDS SUMMARY | ~2019-09-28 | XMS | Encounter Summary ---
Demographics + + + | Address | [address] | | | [place] [address] | + + + | Home Phone [...] [place] | | | | | [address] | | + + + + + Care Team Providers + +------+ + | Care Embryology Teacher Name | Role | Phone | [...] Rd | | | | | | [place], [place] | | | | | | [address] | | | +--------+ + + + [...]
--- OUTSIDE RECORDS SUMMARY | ~2019-09-28 | XMS | Encounter Summary ---
Demographics + + + | Address | [address] | | | [place] [address] | + + + | Home Phone [...] [place] | | | | | [address] | | + + + + + Care Team Providers + +------+ + | Care Pheresis Specialist Name | Role | Phone | [...] + | 04/05/ | Telephone | [facility] [place] | [facility], | Results | | 2012 | | GASTROENTEROLOGY | [address]TUNATO Thomas [address] | | | | | [address] [place] | [place], [address] | | | | | [address] [place], [place] | [place], [place] | | | | | [address] | [address] | | | | | [phone] | | | +--------+ + + + [...] [place] | | | | | | [address] | | | | | | | | +--------+---------+ + + + documented as of this encounter Visit Diagnoses Not on filedocumented in this encounter"
--- OUTSIDE RECORDS SUMMARY | ~2019-09-28 | XMS | Encounter Summary ---
Demographics + + + | Address | [address] | | | [place] [address] | + + + | Home Phone [...] [place] | | | | | [address] | | + + + + + [...] | | | spondylolist | | [address] | | | | | hesis | | [place], | | | | | Spinal | | [place] [address] | | | | | stenosis, | | Phone: | | | | | lumbar | | [phone] | | | | | region, | | Fax: | | | | | without | | [phone] | | | | | neurogenic | [...] + + | 07/02/ | Hospital | [facility] | Frandy Teresa, | Degenerative disc | | 2013 - | Encounter | MED CTR SURGICAL | DO [address] | disease, lumbar | | | | [address] | [place] | (Primary Dx); | | 07/05/ | | [place] [address] | [id number] | Diabetes mellitus | | 2013 | | [phone] | | ([facility]); Disturbance | [...] Take 15 mg by mouth nightl y. [place]-3 Fatty Acids (FISH OIL CONCENTRATE) 1000 MG [...] + + + +---------+ + + | [place]-3 Fatty | Take 1,000 mg by | [...] documented as of this encounter Progress Notes Franyd Teresa DO - 07/05/2014 7:25 AM PDTFormatting [...] home with [facility] any time. Maria T Storm RN - 07/04/2014 6:56 PM PDTFoley cath dc'd and MARI drain dc'd no problems. Chris Lynn PA-C - 07/04/2014 7:43 AM PDT [facility] PROGRESS NOTE Pt. Name/Age/: Cindy Arndt 58 y.o. 1955 Med. Record Number: [id number] Date of admission: 07/02/2014 Subjective: The patient [...] home medications. D/C plan: Home tomorrow with [facility]. D/c mari drain and riley cath today. D/c advance scout. Patient Active Problem List Diagnosis LUMBAR DISC [...] signed by: Chris Nicole, 07/04/2014 7:45 [facility] Chris Lynn PA-C - 07/03/2014 7:13 AM PDT . [facility] PROGRESS NOTE Pt. Name/Age/: Cindy Arndt 58 y.o. 1955 Med. Record Number: [id number] Date of admission: 07/02/2014 Subjective: The patient [...] Electronically signed by: Chris Nicole, 07/03/2014 7:13 [facility] Ton Menjivar, KRIS - 07/03/2014 6:50 AM [...] [place] | | | | | | [address] | | | | | | | [...] + | [facility] | [address] | [place], [place] | [phone] | | [facility] | | [address] | | | - LABORATORY | | | | + + + + + | [facility] | [address] | [place], [place] | | | [facility] | | [address] | | | - LABORATORY | | [...] + | [facility] | [address] | [place] | [phone] | | [facility] | | [address] | | | - LABORATORY | | | | + + + + + | [facility] | [address] | [place] | | | [facility] | | [address] | | | - LABORATORY | | [...] + | [facility] | [address] | [place] | [phone] | | [facility] | | [address] | | | - LABORATORY | | | | + + + + + | [facility] | [address] | [place] | | | [facility] | | [address] | | | - LABORATORY | | [...] + | [facility] | [address] | [place], [place] | [phone] | | [facility] | | [address] | | | - LABORATORY | | | | + + + + + | [facility] | [address] | [place], [place] | | | [facility] | | [address] | | | - LABORATORY | | [...] + | [facility] | [address] | [place] | [phone] | | [facility] | | [address] | | | - LABORATORY | | | | + + + + + | [facility] | [address] | [place] | | | [facility] | | [address] | | | - LABORATORY | | [...] + | [facility] | [address] | [place] | [phone] | | [facility] | | [address] | | | - LABORATORY | | | | + + + + + | [facility] | [address] | [place] | | | [facility] | | [address] | | | - LABORATORY | | [...] [address] | [place] | [phone] | | [facility] | | [address] | | | - LABORATORY | | | | + + + + + | [facility] | [address] | [place] | | | [facility] | | [address] | | | - LABORATORY | | [...] + | [facility] | [address] | [place], [place] | [phone] | | [facility] | | [address] | | | - LABORATORY | | | | + + + + + | [facility] | [address] | [place], [place] | | | [facility] | | [address] | | | - LABORATORY | | [...] [address] | [place] | [phone] | | [facility] | | [address] | | | - LABORATORY | | | | + + + + + | [facility] | [address] | [place], [place] | | | [facility] | | [address] | | | - LABORATORY | | [...] | of hardware for posterior fusion from [id number] S1 with interbody hardware at L5-S1. The [...] + | MISCELLANEOUS LAB | | | [phone] | + +---------+ + + | MISCELANIOUS LAB | | | [phone] | + +---------+ + + POC Glucose [...] + | [facility] | [address] | [place], [place] | [phone] | | [facility] | | [address] | | | - LABORATORY | | | | + + + + + | [facility] | [address] | [place], [place] | | | [facility] | | [address] | | | - LABORATORY | | [...] + | [facility] | [address] | [place] | [phone] | | [facility] | | [address] | | | - LABORATORY | | | | + + + + + | [facility] | [address] | [place] | | | [facility] | | [address] | | | - LABORATORY | | [...] | | | POC | | | [facility] | | | | | [...] + | [facility] | [address] | [place] | [phone] | | [facility] | | [address] | | | - LABORATORY | | | | + + + + + | [facility] | [address] | [place] | | | [facility] | | [address] | | | - LABORATORY | | [...] + | [facility] [facility] | [address] | [place], [place] | [phone] | | [facility] | | [address] | | | - LABORATORY | | | | + + + + + | [facility] [facility] | [address] | [place] | | | [facility] | | [address] | | | - LABORATORY | | [...] + | [facility] | [address] | [place] | [phone] | | [facility] | | [address] | | | - LABORATORY | | | | + + + + + | [facility] | [address] | [place] | | | [facility] | | [address] | | | - LABORATORY | | [...] [facility] | | [address] | | | - BLOOD BANK | [...] + +---------+ +---+---+---+ | morphine 5 mg/mL RECORDS MANAGEMENT DIRECTOR syringe | New Bag | 07/02/20 | [...] | | | | Dose(mg): 0, Starting RECORDS MANAGEMENT DIRECTOR | | | | | | | Dose(mg): 1, Incremental Increase | | | | | | | RECORDS MANAGEMENT DIRECTOR Dose(mg): 0.5, Maximum RECORDS MANAGEMENT DIRECTOR | | | | | | | [...]
--- OUTSIDE RECORDS SUMMARY | ~2019-09-28 | XMS | Encounter Summary ---
Demographics + + + | Address | [address] | | | [place] [address] | + + + | Home Phone [...] [place] | | | | | [address] | | + + + + + Care Team Providers + +------+ + | Care Job Placement Officer Name | Role | Phone | + +------+ + | Natalee Andersen NP | PCP | | + +------+ + Encounter Details +--------+ + + + + | Date | Type | Department | Care Team | Description | +--------+ + + + + | 06/26/ | Hospital | [facility] | Heather Cordero PT | | | 2014 | Encounter | MED CTR ACUTE | [address] | | | | | PHYSICAL THERAPY | [place] | | | | | [address] [place] | [address] | | | | | [place] [address] | | | | | | [phone] | | | +--------+ + + + [...] + + + +---------+ + + | [place]-3 Fatty | Take 1,000 mg by | [...] [place] | | | | | | [address] | | | | | | | | +--------+---------+ + + + documented as of this encounter Visit Diagnoses Not on filedocumented in this encounter"
--- OUTSIDE RECORDS SUMMARY | ~2019-09-28 | XMS | Encounter Summary ---
Demographics + + + | Address | [address] | | | [place] [address] | + + + | Home Phone [...] [place] | | | | | [address] | | + + + + + Care Team Providers + +------+ + | Care Safety Instruction Police Officer Name | Role | Phone [...] + | 11/25/ | Telephone | [facility] | Frandy Teresa, | Medication Refill | | 2015 | | NEUROSURGERY [address] | DO [address] | Assistance | | | | [address] | [address] [place], [place] | | | | | [place], [place] | [address] | | | | | [address] | | | | | | [phone] | | | +--------+ + + + [...] | | | | | [place] | | | | | | [address] | | | | | | | | +--------+---------+ + + + documented as of this encounter Visit Diagnoses Not on filedocumented in this encounter"
--- OUTSIDE RECORDS SUMMARY | ~2019-09-28 | XMS | Encounter Summary ---
Demographics + + + | Address | [address] | | | [place] [address] | + + + | Home Phone [...] [place] | | | | | [address] | | + + + + + Care Team Providers + +------+ + | Care Docketing Specialist Name | Role | Phone | + +------+ + | Natalee Andersen NP | PCP | | + +------+ + Encounter Details +--------+ + + + + | Date | Type | Department | Care Team | Description | +--------+ + + + + | 07/06/ | Hospital | [facility] | Latricia Feliciano | | | 2014 | Encounter | MED CTR ACUTE | D, PT [address] | | | | | PHYSICAL THERAPY | [place] | | | | | [address] | [address] | | | | | [place] [address] | | | | | | [phone] | | | +--------+ + + + [...] + + + +---------+ + + | [place]-3 Fatty | Take 1,000 mg by | [...] | | | | | [place] | | | | | | [address] | | | | | | | | +--------+---------+ + + + documented as of this encounter Visit Diagnoses Not on filedocumented in this encounter"
--- OUTSIDE RECORDS SUMMARY | ~2019-09-28 | XMS | Encounter Summary ---
Demographics + + + | Address | [address] | | | [place] [address] | + + + | Home Phone [...] [place], [place] | | | | | [address] | | + + + + + Care Team Providers + +------+ + | Care Gas Load Dispatcher Name | Role | Phone | + +------+ + PCP | Unavailable | + +------+ + Encounter Details +--------+ + + + + | Date | Type | Department | Care Team | Description | +--------+ + + + + | 09/23/ | Hospital | [facility] | | | | 1994 | Encounter | MED CTR LABORATORY | | | | | | [address] | | | | | | [place] | | | | | | [address] | | | | | | [phone] | | | +--------+ + + + [...] | 2019 | Visit | | [address] | | | | | | [place] | | | | | | [address] | | | | | | | | +--------+---------+ + + + documented as of this encounter Visit Diagnoses Not on filedocumented in this encounter"
--- OUTSIDE RECORDS SUMMARY | ~2019-09-28 | XMS | Encounter Summary ---
Demographics + + + | Address | [address] | | | [place] [address] | + + + | Home Phone [...] [place] | | | | | [address] | | + + + + + Care Team Providers + +------+ + | Care Budget And Policy Analyst Name | Role | Phone [...] [address] | [address] [place], [place] | | | | | [place], [place] | [phone] | | | | | [address] | | | | | | [phone] | | | +--------+ + + + [...] | | | | | [place] | | | | | | [address] | | | | | | | | +--------+---------+ + + + documented as of this encounter Visit Diagnoses Not on filedocumented in this encounter"
--- OUTSIDE RECORDS SUMMARY | ~2019-09-28 | XMS | Encounter Summary ---
Demographics + + + | Address | [address] | | | [place] [address] | + + + | Home Phone [...] [place] | | | | | [address] | | + + + + + Care Team Providers + +------+ + | Care Wet End Supervisor Name | Role | Phone | + +------+ + | Natalee Andersen NP | PCP | | + +------+ + Encounter Details +--------+ + + + + | Date | Type | Department | Care Team | Description | +--------+ + + + + | 06/25/ | Hospital | [facility] | Frandy Teresa, | Diabetes mellitus | | 2014 | Encounter | MED CTR OR INTRA OP | DO [address] | (HCC) (Primary Dx) | | | | [address] | [address] [place], [place] | | | | | [place], [place] | [address] | | | | | [address] | | | | | | [phone] | | | +--------+ + + + [...] + + + +---------+ + + | [place]-3 Fatty | Take 1,000 mg by | [...] [place] | | | | | | [id number] | | | | | | | [...] mL/min/1.73m2 | [facility] | | | [place] | RATE,ESTIMATED | | MEDICAL | | | | mL/min/1.90n5Tykm than | | CENTER - | | [...] + | [facility] | [address] | [place], [place] | [phone] | | [facility] | | [address] | | | - LABORATORY | | | | + + + + + | [facility] | [address] | [place], [place] | | | [facility] | | [address] | | | - LABORATORY | | [...] + | [facility] | [address] | [place] | [phone] | | [facility] | | [address] | | | - LABORATORY | | | | + + + + + | [facility] | [address] | [place], [place] | | | [facility] | | [address] | | | - LABORATORY | | [...] [address] | [place] | [phone] | | [facility] | | [address] | | | - LABORATORY | | | | + + + + + | [facility] | [address] | [place] | | | [facility] | | [address] | | | - LABORATORY | | [...] St | [place] | | | [facility] | | [address] | | | - BLOOD BANK | [...] | + + + + + | [facility] | [address] | [place] | [phone] | | [facility] | | [address] | | | - LABORATORY | | | | + + + + + | [facility] | [address] | [place], [place] | | | [facility] | | [address] | | | - LABORATORY | | [...]
--- OUTSIDE RECORDS SUMMARY | ~2019-09-28 | XMS | Encounter Summary ---
Demographics + + + | Address | [address] | | | [place] [address] | + + + | Home Phone [...] [place] | | | | | [address] | | + + + + + Care Team Providers + +------+ + | Care Water Well Driller Name | Role | Phone | + [...] [address] | [address] [place], [place] | | | | | [place], [place] | [id number] | | | | | [address] | | | | | | [phone] | | | +--------+ + + + [...] | | | | | [place] | | | | | | [address] | | | | | | | | +--------+---------+ + + + documented as of this encounter Visit Diagnoses Not on filedocumented in this encounter"
--- OUTSIDE RECORDS SUMMARY | ~2019-09-28 | XMS | Encounter Summary ---
Demographics + + + | Address | [address] | | | [place] [address] | + + + | Home Phone [...] [place] | | | | | [address] | | + + + + + Care Team Providers + +------+ + | Care Solar Sales Representative And Assessor Name | Role | Phone | [...] [place] | | | | | | [address] | | | | | | [phone] | | | +--------+ + + + [...] [place] | | | | | | [address] | | | | | | | | +--------+---------+ + + + documented as of this encounter Visit Diagnoses Not on filedocumented in this encounter"
--- OUTSIDE RECORDS SUMMARY | ~2019-09-28 | XMS | Encounter Summary ---
Demographics + + + | Address | [address] | | | [place] [address] | + + + | Home Phone [...] [place] | | | | | [address] | | + + + + + [...] + | 04/05/ | Telephone | [facility] [place] | [facility], | Results | | 2012 | | GASTROENTEROLOGY | FORTUNATO Thomas [address] | | | | | [address] [place] | [place], [address] | | | | | [address] [place], [place] | [place], [place] | | | | | [address] | [address] | | | | | [phone] | | | +--------+ + + + [...] [place] | | | | | | [address] | | | | | | | | +--------+---------+ + + + documented as of this encounter Visit Diagnoses Not on filedocumented in this encounter"
--- OUTSIDE RECORDS SUMMARY | ~2019-09-28 | XMS | Encounter Summary ---
Demographics + + + | Address | [address] | | | [place] [address] | + + + | Home Phone [...] [place], [place] | | | | | [address] | | + + + + + Care Team Providers + +------+ + | Care Completion Engineer Name | Role | Phone | + +------+ + PCP | Unavailable | + +------+ + Encounter Details +--------+ + + + + | Date | Type | Department | Care Team | Description | +--------+ + + + + | 03/26/ | Hospital | [facility] | | | | 2001 | Encounter | MED CTR LABORATORY | | | | | | [address] | | | | | | [place] | | | | | | [address] | | | | | | [phone] | | | +--------+ + + + [...] | | | | | [place] | | | | | | [address] | | | | | | | | +--------+---------+ + + + documented as of this encounter Visit Diagnoses Not on filedocumented in this encounter"
--- OUTSIDE RECORDS SUMMARY | ~2019-09-28 | XMS | Encounter Summary ---
Demographics + + + | Address | [address] | | | [place] [address] | + + + | Home Phone [...] [place] | | | | | [address] | | + + + + + Care Team Providers + +------+ + | Care Road Supervisor Name | Role | Phone | [...] | | [address] | [place] [address] | | | | | [place], [place] | [phone] | | | | | [address] | | | | | | [phone] | | | +--------+ + + + [...] | | [facility] | | | | | | [address] | | | | | | | | +--------+---------+ + + + documented as of this encounter Visit Diagnoses Not on filedocumented in this encounter"
--- OUTSIDE RECORDS SUMMARY | ~2019-09-28 | XMS | Encounter Summary ---
Demographics + + + | Address | [address] | | | [place] [address] | + + + | Home Phone [...] [place] | | | | | [address] | | + + + + + Care Team Providers + +------+ + | Care Subway Operator Name | Role | Phone | + +------+ + | Natalee Andersen NP | PCP | | + +------+ + Encounter Details +--------+---------+ + + + | Date | Type | Department | Care Team | Description | +--------+---------+ + + + | 06/25/ | Surgery | [facility] | Frandy Teresa, | Canceled | | 2013 | | MED CTR OR INTRA OP | DO [address] | PROCEDURE NOT | | | | [address] | [address] [place], [place] | PERFORMED | | | | [place], [place] | [address] | | | | | [address] | | | | | | [phone] | | | +--------+---------+ + + + [...] + + + +---------+ + + | [place]-3 Fatty | Take 1,000 mg by | [...] | | | | | [place], [place] | | | | | | [id number] | | | | | | | [...] mL/min/1.73m2 | [facility] | | | [place] | RATE,ESTIMATED | | MEDICAL | | | | mL/min/1.84j0Jemc than | | CENTER - | | [...] + | [facility] | [address] | [place] | [phone] | | [facility] | | [address] | | | - LABORATORY | | | | + + + + + | [facility] | [address] | [place] | | | [facility] | | [address] | | | - LABORATORY | | [...] + | [facility] | [address] | [place] | [phone] | | [facility] | | [address] | | | - LABORATORY | | | | + + + + + | [facility] | [address] | [place] | | | [facility] | | [address] | | | - LABORATORY | | [...] [address] | [place] | [phone] | | [facility] | | [address] | | | - LABORATORY | | | | + + + + + | [facility] | [address] | [place], [place] | | | [facility] | | [address] | | | - LABORATORY | | [...] | | [facility] | | [address] | | | - BLOOD BANK | [...] + | [facility] | [address] | [place], [place] | [phone] | | [facility] | | [address] | | | - LABORATORY | | | | + + + + + | [facility] | [address] | [place], [place] | | | [facility] | | [address] | | | - LABORATORY | | [...]
--- OUTSIDE RECORDS SUMMARY | ~2019-09-28 | XMS | Encounter Summary ---
Demographics + + + | Address | [address] | | | [place] [address] | + + + | Home Phone [...] [place] | | | | | [address] | | + + + + + Care Team Providers + +------+ + | Care Credit Adjuster Name | Role | Phone | [...] | | | | CENTER [address] | [address] [facility] | ([facility] (Primary Dx) | | | | [place], [place] | [place] [address] | | | | | [address] | [phone] | | | | | [phone] | | | +--------+ + + + [...] + + +---------+ + + | [place]-3 Fatty | Take 1,000 mg by | [...] | | | | | [place] | | | | | | [address] | | | | | | | [...] mL/min/1.73m2 | [facility] | | | [place] | RATE,ESTIMATED | | MEDICAL | | | | mL/min/1.68g5Hdpt than | | CENTER - | | [...] | 9.1 | 8.3 - 10.5 | [facility] | | | | | mg/dL | [...] [address] | [place] | [phone] | | [facility] | | [address] | | | - LABORATORY | | [...] [address] | [place] | [phone] | | [facility] | | [address] | | | - LABORATORY | | [...] | ---- | | | 02/26/2015 13:10 [facility] | | | Emergency -numbness/facial droop 02/26/2015 08:15 [facility] | | | [facility] 02/19/2015 | | | 10:15 [facility] | | | -Diabetes [...] as uncontrolled 02/17/2015 | | | 08:22 [facility] Emergency | | | -Long-term (current) [...] and uterus 02/14/2015 | | | 09:56 [facility] Emergency | | | -Disturbance of [...] status 02/06/2015 10:46 | | | [facility] | | | -Generalized [...] residual deficits | | | 02/01/2015 21:38 [facility] | | | Emergency 01/22/2015 14:00 [facility] | | | Urgent Care -Myalgia [...] intervertebral disc | | | 01/16/2015 12:15 [facility] | | | Urgent Care -Unspecified [...] other | | | medications 01/07/2015 11:45 [facility] | | | Urgent Care -Unspecified [...] acquired hypothyroidism 12/30/2014 | | | 17:54 [facility] Emergency | | | -Obstructive sleep [...] essential hypertension | | | 12/30/2014 14:30 [facility] | | | Urgent Care -Cramp [...] | | -Cramp of limb 11/29/2014 16:15 [facility] | | | Urgent Care -Esophageal [...] ------ | | | --------- [address] | | | [facility] [address] | | | [facility] 7 0 Total | | | Note: Visits indicate total known visits. [place] Dx are the | | | number of primary diagnoses on the [facility]'s non-emergent dx list. | | | [...]
--- OUTSIDE RECORDS SUMMARY | ~2019-09-28 | XMS | Encounter Summary ---
Demographics + + + | Address | [address] | | | [place] [address] | + + + | Home Phone [...] [place], [place] | | | | | [address] | | + + + + + Care Team Providers + +------+ + | Care Body Designer Name | Role | Phone | + +------+ + PCP | Unavailable | + +------+ + Encounter Details +--------+ + + + + | Date | Type | Department | Care Team | Description | +--------+ + + + + | 10/29/ | Hospital | [facility] | | | | 1994 | Encounter | MED CTR LABORATORY | | | | | | [address] | | | | | | [place] | | | | | | [address] | | | | | | [phone] | | | +--------+ + + + [...] | | | | | [place] | | | | | | [address] | | | | | | | | +--------+---------+ + + + documented as of this encounter Visit Diagnoses Not on filedocumented in this encounter"
--- OUTSIDE RECORDS SUMMARY | ~2019-09-28 | XMS | Encounter Summary ---
Demographics + + + | Address | [address] | | | [place] [address] | + + + | Home Phone [...] [place], [place] | | | | | [address] | | + + + + + Care Team Providers + +------+ + | Care Community Service Worker Name | Role | Phone | + +------+ + PCP | Unavailable | + +------+ + Encounter Details +--------+ + + + + | Date | Type | Department | Care Team | Description | +--------+ + + + + | 03/26/ | Hospital | [facility] | | | | 2001 | Encounter | MED CTR LABORATORY | | | | | | [address] | | | | | | [place] | | | | | | [address] | | | | | | [phone] | | | +--------+ + + + [...] | | | | | [place] | | | | | | [address] | | | | | | | | +--------+---------+ + + + documented as of this encounter Visit Diagnoses Not on filedocumented in this encounter"
--- OUTSIDE RECORDS SUMMARY | ~2019-09-28 | XMS | Encounter Summary ---
Demographics + + + | Address | [address] | | | [place] [address] | + + + | Home Phone [...] [place] | | | | | [address] | | + + + + + Care Team Providers + +------+ + | Care Cage Tender Name | Role | Phone | [...] [place] | | | | | | [address] | | | | | | [phone] | | | +--------+ + + + [...] [place] | | | | | | [address] | | | | | | | | +--------+---------+ + + + documented as of this encounter Visit Diagnoses Not on filedocumented in this encounter"
--- OUTSIDE RECORDS SUMMARY | ~2019-09-28 | XMS | Encounter Summary ---
Demographics + + + | Address | [address] | | | [place] [address] | + + + | Home Phone [...] [place] | | | | | [address] | | + + + + + Care Team Providers + +------+ + | Care Card Painter Name | Role | Phone | [...] + | 08/26/ | Refill | [facility] | Frandy Teresa, | Medication Refill | | 2013 | | NEUROSURGERY [address] | DO [address] | | | | | [address] | [address] [place], [place] | | | | | [place], [place] | [address] | | | | | [address] | | | | | | [phone] | | | +--------+--------+ + + + [...] | | | | | [place] | | | | | | [address] | | | | | | | | +--------+---------+ + + + documented as of this encounter Visit Diagnoses Not on filedocumented in this encounter"
--- OUTSIDE RECORDS SUMMARY | ~2019-09-28 | XMS | Encounter Summary ---
Demographics + + + | Address | [address] | | | [place] [address] | + + + | Home Phone [...] [place], [place] | | | | | [address] | | + + + + + Care Team Providers + +------+ + | Care Roll Icer Name | Role | Phone | + +------+ + PCP | Unavailable | + +------+ + Encounter Details +--------+ + + + + | Date | Type | Department | Care Team | Description | +--------+ + + + + | 12/22/ | Hospital | [facility] | | | | 1993 - | Encounter | MED CTR GENERIC PSY | | | | | | CONV DEPT [address] | | | | 12/25/ | | [address] [place], | | | | 1993 | | [place] [address] | | | | | | [phone] | | | +--------+ + + + [...] [place] | | | | | | [address] | | | | | | | | +--------+---------+ + + + documented as of this encounter Visit Diagnoses Not on filedocumented in this encounter"
--- OUTSIDE RECORDS SUMMARY | ~2019-09-28 | XMS | Encounter Summary ---
Demographics + + + | Address | [address] | | | [place] [address] | + + + | Home Phone [...] [place], [place] | | | | | [address] | | + + + + + Care Team Providers + +------+ + | Care Quality Eng Name | Role | Phone | + [...] [place] | | | | | | [address] | | | | | | [phone] | | | +--------+ + + + [...] | | | | | [place] | | | | | | [address] | | | | | | | | +--------+---------+ + + + documented as of this encounter Visit Diagnoses Not on filedocumented in this encounter"
--- OUTSIDE RECORDS SUMMARY | ~2019-09-28 | XMS | Encounter Summary ---
Demographics + + + | Address | [address] | | | [place] [address] | + + + | Home Phone [...] [place] | | | | | [address] | | + + + + + Care Team Providers + +------+ + | Care Training Systems Officer Name | Role | Phone | [...] | | | | | | | [address] | | | | | | | Phone: | | | | | | | [phone] | | | | | | | Fax: | | | | | | | [phone] | | +--------+ + + + + + Reason for Visit + + + | Reason | Comments | + + + | Follow-up | 4 Week PO | + + + Encounter Details +--------+---------+ + + + | Date | Type | Department | Care Team | Description | +--------+---------+ + + + | 07/25/ | Office | [facility] | Frandy Teresa, | Lumbar spondylosis | | 2013 | Visit | NEUR[address]URGERY [address] | DO [address] | (Primary Dx); S/P | | | | [address] | [address] [place], [place] | lumbar fusion | | | | [place], [place] | [address] | | | | | [address] | | | | | | [phone] | | | +--------+---------+ + + + [...] Frandy Teresa DO [address] [place], [place] [address] FAX: NEUROSURGERY SURGICAL FOLLOW-UP CHIEF COMPLAINT: Chief [...] Take 15 mg by mouth nightl y. [place]-3 Fatty Acids (FISH OIL CONCENTRATE) 1000 MG [...] [place] | | | | | | [id number] | | | | | | | [...] + | MISCELLANEOUS LAB | | | [phone] | + +---------+ + + | MISCELANIOUS LAB | | | [phone] | + +---------+ + + documented in this encounter Visit Diagnoses + + | Diagnosis | + + | Lumbar spondylosis - Primary Lumbosacral spondylosis without myelopathy | + + | S/P lumbar fusion Arthrodesis status | + + documented in this encounter
--- OUTSIDE RECORDS SUMMARY | ~2019-09-28 | XMS | Encounter Summary ---
Demographics + + + | Address | [address] | | | [place] [address] | + + + | Home Phone [...] [place] | | | | | [address] | | + + + + + Care Team Providers + +------+ + | Care Interpreter For The Deaf Name | Role | Phone | + [...] + | 07/15/ | Telephone | [facility] | Russell Alfaro PA | Other | | 2016 | | SLEEP DISORDER [address] | [address] | | | | | [address] [place] | [place] [facility] [place] | | | | | [place] [address] | [address] | | | | | [phone] | | | +--------+ + + + [...] [place] | | | | | | [address] | | | | | | | | +--------+---------+ + + + documented as of this encounter Visit Diagnoses Not on filedocumented in this encounter"
--- OUTSIDE RECORDS SUMMARY | ~2019-09-28 | XMS | Encounter Summary ---
Demographics + + + | Address | [address] | | | [place] [address] | + + + | Home Phone [...] [place] | | | | | [address] | | + + + + + Care Team Providers + +------+ + | Care Fashion Director Name | Role | Phone | [...] | 03/07/ | Telephone | [facility] | Katharine Cardona PA-C | Results | | 2014 | | [facility] | [address] [place] | | | | | [address] | [place] [address] | | | | | [place], [place] | [phone] | | | | | [address] | | | | | | [phone] | | | +--------+ + + + [...] [place] | | | | | | [address] | | | | | | | | +--------+---------+ + + + documented as of this encounter Visit Diagnoses Not on filedocumented in this encounter"
--- OUTSIDE RECORDS SUMMARY | ~2019-09-28 | XMS | Encounter Summary ---
Demographics + + + | Address | [address] | | | [place] [address] | + + + | Home Phone [...] [place], [place] | | | | | [address] | | + + + + + Care Team Providers + +------+ + | Care Proposition Player Name | Role | Phone | + +------+ + PCP | Unavailable | + +------+ + Encounter Details +--------+ + + + + | Date | Type | Department | Care Team | Description | +--------+ + + + + | 04/16/ | Hospital | [facility] | | | | 1997 | Encounter | MED CTR XRAY [address] | | | | | [address] | | | | | | [place] [address] | | | | | | [phone] | | | +--------+ + + + [...] | | | | | [place] | | | | | | [address] | | | | | | | | +--------+---------+ + + + documented as of this encounter Visit Diagnoses Not on filedocumented in this encounter"
--- OUTSIDE RECORDS SUMMARY | ~2019-09-28 | XMS | Encounter Summary ---
Demographics + + + | Address | [address] | | | [place] [address] | + + + | Home Phone [...] [place], [place] | | | | | [address] | | + + + + + Care Team Providers + +------+ + | Care Button And Buckle Maker Name | Role | Phone | + +------+ + PCP | Unavailable | + +------+ + Encounter Details +--------+ + + + + | Date | Type | Department | Care Team | Description | +--------+ + + + + | 04/16/ | [facility] | [facility] | Deon Gonzales | | | 2005 | Encounter | MED CTR SLEEP | MD [address] | | | | | [place] [address] | [address] [place] | | | | | [place], [place] | [place] [address] | | | | | [address] | [phone] | | | | | [phone] | | | +--------+ + + + [...] [place] | | | | | | [address] | | | | | | | | +--------+---------+ + + + documented as of this encounter Visit Diagnoses Not on filedocumented in this encounter"
--- OUTSIDE RECORDS SUMMARY | ~2019-09-28 | XMS | Encounter Summary ---
Demographics + + + | Address | [address] | | | [place] [address] | + + + | Home Phone [...] [place] | | | | | [address] | | + + + + + Care Team Providers + +------+ + | Care Hander In Name | Role | Phone | [...] | | [address] | [place] [address] | | | | | [place], [place] | [phone] | | | | | [address] | | | | | | [phone] | | | +--------+ + + + [...] | | | | | [facility] | | | | | | [address] | | | | | | | | +--------+---------+ + + + documented as of this encounter Visit Diagnoses Not on filedocumented in this encounter"
--- OUTSIDE RECORDS SUMMARY | ~2019-09-28 | XMS | Encounter Summary ---
Demographics + + + | Address | [address] | | | [place] [address] | + + + | Home Phone [...] [place] | | | | | [address] | | + + + + + Care Team Providers + +------+ + | Care Peanut Roaster Name | Role | Phone | + [...] [place], [place] | | | | | [place], [place] | [address] | | | | | [address] | | | | | | [phone] | | | +--------+ + + + [...] [place] | | | | | | [address] | | | | | | | [...] + | MISCELLANEOUS LAB | | | [phone] | + +---------+ + + | MISCELANIOUS LAB | | | [phone] | + +---------+ + + documented in this encounter Visit Diagnoses + + | Diagnosis | + + | Back pain - Primary Backache, unspecified | + + documented in this encounter"
--- OUTSIDE RECORDS SUMMARY | ~2019-09-28 | XMS | Encounter Summary ---
Demographics + + + | Address | [address] | | | [place] [address] | + + + | Home Phone [...] [place] | | | | | [address] | | + + + + + Care Team Providers + +------+ + | Care Machine Edge Bander Name | Role | Phone | [...] + + | 08/08/ | Telephone | [facility] | Ashley Chávez | Other (Questions | | 2019 | | [facility] | Pollo, Taxi Truck Driver | about coverage. ) | | | | [address] | | | | | | [place] | | | | | | [address] | | | | | | [phone] | | | +--------+ + + + [...] | | | | | [place] | | | | | | [address] | | | | | | | | +--------+---------+ + + + documented as of this encounter Visit Diagnoses Not on filedocumented in this encounter"
--- OUTSIDE RECORDS SUMMARY | ~2019-09-28 | XMS | Encounter Summary ---
Demographics + + + | Address | [address] | | | [place] [address] | + + + | Home Phone [...] [place], [place] | | | | | [address] | | + + + + + Care Team Providers + +------+ + | Care Sports Team Marketing Intern Name | Role | Phone | [...] | SR | | | | | [phone] | | | +--------+ + + + [...] [place] | | | | | | [phone] | | | | | | | | +--------+---------+ + + + documented as of this encounter Visit Diagnoses Not on filedocumented in this encounter
--- OUTSIDE RECORDS SUMMARY | ~2019-09-28 | XMS | Encounter Summary ---
Demographics + + + | Address | [address] | | | [place] [address] | + + + | Home Phone [...] [place] | | | | | [address] | | + + + + + Care Team Providers + +------+ + | Care File Clerk Data Entry Name | Role | Phone | + [...] | | | | | pain, | [place], [place] | | | | | | bilateral | [address] | | | | | | Degenerative | Phone: | | | | | | disc | [phone] | | | | | | disease, | Fax: | | | | | | lumbar | [phone] | | | | | | Spinal [...] [address] | [address] [place], [place] | (Primary Dx); Knee | | | | [place], [place] | [address] | pain, bilateral; | | | | [address] | | DEGENERATIVE DISC | | | | [phone] | | DISEASE, LUMBAR | | | [...] | | | | | [place] | | | | | | [address] | | | | | | | [...]
--- OUTSIDE RECORDS SUMMARY | ~2019-09-28 | XMS | Encounter Summary ---
Demographics + + + | Address | [address] | | | [place] [address] | + + + | Home Phone [...] [place], [place] | | | | | [address] | | + + + + + Care Team Providers + +------+ + | Care Home Service Demonstrator Name | Role | Phone | + +------+ + PCP | Unavailable | + +------+ + Encounter Details +--------+ + + + + | Date | Type | Department | Care Team | Description | +--------+ + + + + | 02/24/ | Hospital | [facility] | | | | 1997 - | Encounter | MED CTR GENERIC PSY | | | | | | CONV DEPT [address] | | | | 02/26/ | | [place], | | | | 1997 | | [place] [address] | | | | | | [phone] | | | +--------+ + + + [...] [place] | | | | | | [address] | | | | | | | | +--------+---------+ + + + documented as of this encounter Visit Diagnoses Not on filedocumented in this encounter"
--- OUTSIDE RECORDS SUMMARY | ~2019-09-28 | XMS | Encounter Summary ---
Demographics + + + | Address | [address] | | | [place] [address] | + + + | Home Phone [...] [place] | | | | | [address] | | + + + + + Care Team Providers + +------+ + | Care Supervisor Aluminum Fabrication Name | Role | Phone | + +------+ + | Adriano Patrick MD | PCP | | + +------+ + Encounter Details +--------+ + + + + | Date | Type | Department | Care Team | Description | +--------+ + + + + | 06/10/ | Abstract | [facility] | Thierry Fry | | | 2014 | | MEDICINE [address] | MD Lisa [address] | | | | | [address] [place] | [address] [place] [address] | | | | | [place] [address] | [id number] | | | | | [phone] | | | +--------+ + + + [...] | | | | | [place] | | | | | | [id number] | | | | | | | [...]
--- OUTSIDE RECORDS SUMMARY | ~2019-09-28 | XMS | Encounter Summary ---
Demographics + + + | Address | [address] | | | [place] [address] | + + + | Home Phone [...] | [facility] | | | and [place] | + + + | Address | Unknown | + + + | Phone | Unavailable | + + + Support + + + + + | Name | Relationship | Address | Phone | + + + + + | Araceli Sibley | ECON | [place] | | | | | [address] | | + + + + + Care Team Providers + +------+ + | Care Technical Lead Name | Role | Phone | [...] + | 02/21/ | Refill | [facility] | Deon Gonzales | Medication Refill | | 2012 | | SLEEP DISORDER [address] | MD Laure[address] | | | | | [address] [place] | [address] [place] | | | | | [place] [address] | [place] [address] | | | | | [phone] | [phone] | | | | | | | [...] [place] | | | | | | [address] | | | | | | | | +--------+---------+ + + + documented as of this encounter Visit Diagnoses + + | Diagnosis | + + | Obstructive sleep apnea (adult) (pediatric) - Primary | + + documented in this encounter"
--- OUTSIDE RECORDS SUMMARY | ~2019-09-28 | XMS | Encounter Summary ---
Demographics + + + | Address | [address] | | | [place] [address] | + + + | Home Phone [...] [place] | | | | | [address] | | + + + + + [...] + | 12/03/ | Refill | [facility] | Frandy Teresa, | Medication Refill | | 2014 | | NEUROSURGERY [address] | DO [address] | | | | | [address] | [address] [place], [place] | | | | | [place], [place] | [id number] | | | | | [address] | | | | | | [phone] | | | +--------+--------+ + + + [...] | | | | [place] | | | | | | [id number] | | | | | | | | +--------+---------+ + + + documented as of this encounter Visit Diagnoses Not on filedocumented in this encounter"
--- OUTSIDE RECORDS SUMMARY | ~2019-09-28 | XMS | Encounter Summary ---
Demographics + + + | Address | [address] | | | [place] [address] | + + + | Home Phone [...] [place], [place] | | | | | [address] | | + + + + + Care Team Providers + +------+ + | Care Division Service Manager Name | Role | Phone | + +------+ + PCP | Unavailable | + +------+ + Encounter Details +--------+ + + + + | Date | Type | Department | Care Team | Description | +--------+ + + + + | 07/23/ | Hospital | [facility] | | | | 1992 - | Encounter | MED CTR GENERIC PSY | | | | | | CONV DEPT [address] | | | | 07/28/ | | [place], | | | | 1992 | | [place] [address] | | | | | | [phone] | | | +--------+ + + + [...] [place] | | | | | | [address] | | | | | | | | +--------+---------+ + + + documented as of this encounter Visit Diagnoses Not on filedocumented in this encounter"
--- OUTSIDE RECORDS SUMMARY | ~2019-09-28 | XMS | Encounter Summary ---
Demographics + + + | Address | [address] | | | [place] [address] | + + + | Home Phone [...] [place] | | | | | [address] | | + + + + + Care Team Providers + +------+ + | Care Tobacco Wetter Name | Role | Phone | + [...] | | | spondylolist | | [address] | | | | | hesis | | [place], | | | | | Spinal | | [place] [address] | | | | | stenosis, | | Phone: | | | | | lumbar | | [phone] | | | | | region, | | Fax: | | | | | without | | [phone] | | | | | neurogenic | [...] | lumbar region, | | | | [place] | [address] [place], [place] | without neurogenic | | | | [place] [address] | [address] | claudication | | | | [phone] | | (Primary Dx) | +--------+ + [...] + + +---------+ + + | [place]-3 Fatty | Take 1,000 mg by | [...] [place] | | | | | | [address] | | | | | | | [...]
--- OUTSIDE RECORDS SUMMARY | ~2019-09-28 | XMS | Encounter Summary ---
Demographics + + + | Address | [address] | | | [place] [address] | + + + | Home Phone [...] [place] | | | | | [address] | | + + + + + Care Team Providers + +------+ + | Care Powerhouse Engineer Name | Role | Phone | [...] + + | 04/30/ | Office | [facility] | Russell Alfaro PA | ROGERS on CPAP (Primary | | 2015 | Visit | SLEEP DISORDER [address] | [address] | Dx) | | | | [address] [place] [place] | [place] | | | | | [place] [address] | [address] | | | | | [phone] | | | +--------+---------+ + + + [...] Insomnia Severity Index Insomnia Severity Index 13 Hundred Sleepiness Scale Sitting and reading 3 Watching [...] nasal obtained from: [facility] [place] pressure: 11-20 cm Median: 12.1 cm 95%: [...] appro priate paperwork. Thirty minutes were spent [id number], with the majority of time spent i [...] | | | | | [place], [place] | | | | | | [id number] | | | | | | | | +--------+---------+ + + + documented as of this encounter Visit Diagnoses + + | Diagnosis | + + | ROGERS on CPAP - Primary Obstructive sleep apnea (adult) (pediatric) | + + documented in this encounter"
--- OUTSIDE RECORDS SUMMARY | ~2019-09-28 | XMS | Encounter Summary ---
Demographics + + + | Address | [address] | | | [place] [address] | + + + | Home Phone [...] [place] | | | | | [address] | | + + + + + Care Team Providers + +------+ + | Care Quality Systems Specialist Name | Role | Phone | [...] [address] | [address] [place], [place] | fusion | | | | [place] | [address] | | | | | [address] | | | | | | [phone] | | | +--------+ + + + [...] [place] | | | | | | [address] | | | | | | | | +--------+---------+ + + + documented as of this encounter Visit Diagnoses + + | Diagnosis | + + | Lumbago - Primary | + + | S/P lumbar fusion Arthrodesis status | + + documented in this encounter"
--- OUTSIDE RECORDS SUMMARY | ~2019-09-28 | XMS | Clinical Summary ---
Demographics + + + | Address | [address] | | | [place] [address] | + + + | Home Phone [...] + | Author | [facility] [employer] (Historical as of | | | 06-09-19) | + + + | Organization | [facility] (Historical as of | | | 06-09-19) [...] Team Providers + +------+ + | Care Cellulose Insulation Helper Name | Role | Phone | [...] | | Activ | | (VITAMIN D3) [id number] | a week. | | | | [...] (type 2 diabetes mellitus) ([facility]) | 04/13/2013 | + + + [...] +------+-------+ + | MEDICARE | MEDICA | [id number] | | | [address] | | | RE | | | | [place] [phone] | | | IP-OP | | | [...] Self | [birth year] | Home: | [address] | | | al/Fam | | 1955 | [phone] | [address] [place] | | | [place] | | | [phone] | [phone] | + +--------+ +--------+ + +
--- OUTSIDE RECORDS SUMMARY | ~2019-09-28 | XMS | Encounter Summary ---
Demographics + + + | Address | [address] | | | [place] [address] | + + + | Home Phone [...] [place] | | | | | [address] | | + + + + + Care Team Providers + +------+ + | Care Car Repairer Helper Name | Role | Phone | + +------+ + | Natalee Andersen NP | PCP | | + +------+ + Encounter Details +--------+ + + + + | Date | Type | Department | Care Team | Description | +--------+ + + + + | 05/02/ | Hospital | [facility] | Frandy Teresa, | Back pain | | 2014 | Encounter | MED CTR XRAY [address] | DO [address] | | | | | [place] | [address] [place] | | | | | [place] [address] | [address] | | | | | [phone] | | | +--------+ + + + [...] + + + +---------+ + + | [place]-3 Fatty | Take 1,000 mg by | [...] | | | | | [place] | | | | | | [address] [...] + | MISCELLANEOUS LAB | | | [phone] | + +---------+ + + | MISCELANIOUS LAB | | | [phone] | + +---------+ + + documented in this encounter Visit Diagnoses + + | Diagnosis | + + | Back pain Backache, unspecified | + + documented in this encounter"
--- OUTSIDE RECORDS SUMMARY | ~2019-09-28 | XMS | Encounter Summary ---
Demographics + + + | Address | [address] | | | [place] [address] | + + + | Home Phone [...] [place] | | | | | [address] | | + + + + + Care Team Providers + +------+ + | Care Manager Production Name | Role | Phone | [...] + + | 03/26/ | Telephone | [facility] | Thierry Fry | Medication Prior | | 2015 | | MEDICINE [facility] Daniel | MD Lisa [address] | Authorization | | | [facility] | [facility] [place] | (Dexilant 60Mg) | | | | [place] [address] | [address] | | | | | [phone] | | | +--------+ + + + [...] [place] | | | | | | [address] | | | | | | | | +--------+---------+ + + + documented as of this encounter Visit Diagnoses Not on filedocumented in this encounter"
--- OUTSIDE RECORDS SUMMARY | ~2019-09-28 | XMS | Encounter Summary ---
Demographics + + + | Address | [address] | | | [place] [address] | + + + | Home Phone [...] [place] | | | | | [address] | | + + + + + Care Team Providers + +------+ + | Care Nursing Assoc Name | Role | Phone | + [...] + + | 01/02/ | Telephone | [facility] | Frandy Teresa, | Other (6m x-ray ) | | 2014 | | NEUROSURGERY [address] | DO [address] | | | | | [address] | [address] [place], [place] | | | | | [place], [place] | [id number] | | | | | [address] | | | | | | [phone] | | | +--------+ + + + [...] [place] | | | | | | [address] | | | | | | | | +--------+---------+ + + + documented as of this encounter Visit Diagnoses Not on filedocumented in this encounter"
--- OUTSIDE RECORDS SUMMARY | ~2019-09-28 | XMS | Encounter Summary ---
Demographics + + + | Address | [address] | | | [place] [address] | + + + | Home Phone [...] [place] | | | | | [address] | | + + + + + Care Team Providers + +------+ + | Care Registered Respiratory Technician Name | Role | Phone | [...] updated | | | | | [address], | address | | | | | [address] [place] | | | | | | [place] [address] | | | | | | [phone] | | | +--------+ + + + [...] [place] | | | | | | [address] | | | | | | | | +--------+---------+ + + + documented as of this encounter Visit Diagnoses Not on filedocumented in this encounter"
--- OUTSIDE RECORDS SUMMARY | ~2019-09-28 | XMS | Encounter Summary ---
Demographics + + + | Address | [address] | | | [place] [address] | + + + | Home Phone [...] [place], [place] | | | | | [address] | | + + + + + Care Team Providers + +------+ + | Care Personal Banking Representative Name | Role | Phone | + +------+ + PCP | Unavailable | + +------+ + Encounter Details +--------+ + + + + | Date | Type | Department | Care Team | Description | +--------+ + + + + | 07/17/ | Hospital | [facility] | | | | 1997 - | Encounter | MED CTR GENERIC PSY | | | | | | CONV DEPT [address] | | | | 07/25/ | | [place], | | | | 1997 | | [place] [address] | | | | | | [phone] | | | +--------+ + + + [...] [place] | | | | | | [address] | | | | | | | | +--------+---------+ + + + documented as of this encounter Visit Diagnoses Not on filedocumented in this encounter"
--- OUTSIDE RECORDS SUMMARY | ~2019-09-28 | XMS | Encounter Summary ---
Demographics + + + | Address | [address] | | | [place] [address] | + + + | Home Phone [...] [place] | | | | | [address] | | + + + + + Care Team Providers + +------+ + | Care Plastic Roller Name | Role | Phone | [...] + + | 08/09/ | Documentati | [facility] | Katharine Moncada, | Other (end of study) | | 2019 | on | CARDIOLOGY [place] | Technologist | | | | | [address] | | | | | | [place], [place] | | | | | | [address] | | | | | | [phone] | | | +--------+ + + + [...] Technologist - 08/09/2019 11:59 PM PDT Cardiac Soft Sugar Cutter Date of Event Monitor: 08/09/19 Referring Physician: [...] [place] | | | | | | [address] | | | | | | | | +--------+---------+ + + + documented as of this encounter Visit Diagnoses Not on filedocumented in this encounter"
--- OUTSIDE RECORDS SUMMARY | ~2019-09-28 | XMS | Encounter Summary ---
Demographics + + + | Address | [address] | | | [place] [address] | + + + | Home Phone [...] [place], [place] | | | | | [address] | | + + + + + Care Team Providers + +------+ + | Care Brass Burnisher Name | Role | Phone | + +------+ + PCP | Unavailable | + +------+ + Encounter Details +--------+ + + + + | Date | Type | Department | Care Team | Description | +--------+ + + + + | 02/28/ | Hospital | [facility] | Deon Gonzales | | | 2011 | Encounter | MED CTR SLEEP | MD Laure[address] | | | | | [place] [address] | [address] | | | | | [place], [place] | [place] [address] | | | | | [address] | [phone] | | | | | [phone] | | | +--------+ + + + [...] [place] | | | | | | [address] | | | | | | | | +--------+---------+ + + + documented as of this encounter Visit Diagnoses Not on filedocumented in this encounter"
--- OUTSIDE RECORDS SUMMARY | ~2019-09-28 | XMS | Encounter Summary ---
Demographics + + + | Address | [address] | | | [place] [address] | + + + | Home Phone [...] [place] | | | | | [address] | | + + + + + Care Team Providers + +------+ + | Care Authors Motivational Name | Role | Phone | + [...] + + | 08/20/ | Documentati | [facility] | Katharine Moncada, | Other (urgent | | 2019 | on | CARDIOLOGY [place] | Technologist | report) | | | | [address] | | | | | | [place] | | | | | | [address] | | | | | | [phone] | | | +--------+ + + + [...] [place] | | | | | | [address] | | | | | | | | +--------+---------+ + + + documented as of this encounter Visit Diagnoses Not on filedocumented in this encounter"
--- OUTSIDE RECORDS SUMMARY | ~2019-09-28 | XMS | Encounter Summary ---
Demographics + + + | Address | [address] | | | [place] [address] | + + + | Home Phone [...] [place] | | | | | [address] | | + + + + + Care Team Providers + +------+ + | Care Digital Ad Trafficker Name | Role | Phone | + [...] + + | 07/01/ | Telephone | [facility] | Frandy Teresa, | Other (Surgery ) | | 2013 | | NEUROSURGERY [address] | DO [address] | | | | | [address] | [address] [place], [place] | | | | | [place], [place] | [address] | | | | | [address] | | | | | | [phone] | | | +--------+ + + + [...] [place] | | | | | | [address] | | | | | | | | +--------+---------+ + + + documented as of this encounter Visit Diagnoses Not on filedocumented in this encounter"
--- OUTSIDE RECORDS SUMMARY | ~2019-09-28 | XMS | Encounter Summary ---
Demographics + + + | Address | [address] | | | [place] [address] | + + + | Home Phone [...] [place] | | | | | [address] | | + + + + + Care Team Providers + +------+ + | Care Net Developer Programmer Name | Role | Phone | [...] | | [place] | [address] [place], [place] | | | | | [place] [address] | [address] | | | | | [phone] | | | +--------+ + + + [...] + + + +---------+ + + | [place]-3 Fatty | Take 1,000 mg by | [...] [place] | | | | | | [address] | | | | | | | [...] + | MISCELLANEOUS LAB | | | [phone] | + +---------+ + + | MISCELANIOUS LAB | | | [phone] | + +---------+ + + documented in this encounter Visit Diagnoses + + | Diagnosis | + + | Status post lumbar spinal fusion Arthrodesis status | + + documented in this encounter"
--- OUTSIDE RECORDS SUMMARY | ~2019-09-28 | XMS | Encounter Summary ---
Demographics + + + | Address | [address] | | | [place] [address] | + + + | Home Phone [...] [place] | | | | | [address] | | + + + + + Care Team Providers + +------+ + | Care Cash Management Associate Name | Role | Phone | [...] | | [address] | [place], [place] | | | | | [place], [place] | [address] | | | | | [address] | | | | | | [phone] | | | +--------+ + + + [...] | | | | | [place] | | | | | | [address] | | | | | | | [...] 0.83 m/s | | | MV Dec Hand: 2.85 m/s2 MV DecT: 282.89 ms MV E Teodoro: 0.80 | | | m/s MV E/A Ratio: 0.96 E/E' Sept: 12.59 E' Lat: 0.08 m/s | | | E' Sept: 0.06 m/s RAP: 10 mmHg RV S': 0.11 m/s RVSP: | | | 27.96 mmHg TR maxP.96 mmHg TR Vmax: 2.11 m/s | | | Owner/Photographer: Authenticated by: Desiree Peterson MD Report Date/Time: | | | -- [id number] | | + + + + + | Procedure Note | + + | Juan, Rad Conversion - 06/14/2019 1:12 PM PDT Patient Name: Claudia Arndt | | : 1955 Performing Physician: Desriee Peterson | | MD INDICATIONS S | [...] (A-L): 19.60 | | ml/m2LAAs A2C: 15.44 [id number] A-L A2C: 43.84 mlLAESV MOD A2C: 42.12 mlLALs A2C: | | 4.61 cmLAAs A4C: 14.18 [id number] A-L A4C: 38.73 mlLAESV MOD A4C: 37.04 mlLALs A4C: | | 4.41 cmRAAs: 12.15 [id number] A-L: 28.54 mlRAESV MOD: 28.66 mlRALs: 4.39 | | cmTAPSE: 2.42 cmAV Env.Ti: 293.94 msAV maxP.18 mmHgAV meanP.09 mmHgAV | | Vmax: 1.88 m/Eddie Vmean: 1.25 m/Eddie VTI: 36.84 cmAVA Vmax: 2.06 cm2AVA (VTI): | | 2.24 [id number] Vmax: 0.00 cm2/m2AVAI (VTI): 0.00 cm2/m2LVOT Env.Ti: 299.59 msLVOT | | maxP.52 mmHgLVOT meanP.65 mmHgLVSI Dopp: 38.55 ml/m2LVSV Dopp: 82.89 | | mlLVOT Vmax: 1.27 m/sLVOT Vmean: 0.91 m/sLVOT VTI: 27.27 cmMV A Teodoro: 0.83 m/sMV | | Dec Hand: 2.85 m/s2MV DecT: 282.89 msMV E Teodoro: 0.80 m/sMV E/A Ratio: 0.96E/E' | | Sept: 12.59E' Lat: 0.08 m/sE' Sept: 0.06 m/sRAP: 10 mmHgRV S': 0.11 m/sRVSP: | | 27.96 mmHgTR maxP.96 mmHgTR Vmax: 2.11 m/s Owner/Photographer:Authenticated by: | | Desiree Peterson MDReport Date/Time: -- [id number]:[id number] IMPRESSION: 1. Overall left | | ventricular [...] A Teodoro: 0.83 m/s | |MV Dec Hand: 2.85 m/s2 | |MV DecT: 282.89 ms | |MV E Teodoro: 0.80 m/s | |MV E/A Ratio: 0.96 | |E/E' Sept: 12.59 | |E' Lat: 0.08 m/s | |E' Sept: 0.06 m/s | |RAP: 10 mmHg | |RV S': 0.11 m/s | |RVSP: 27.96 mmHg | |TR maxP.96 mmHg | |TR Vmax: 2.11 m/s | | | |Owner/Photographer: | |Authenticated by: Desiree Peterson MD | |Report Date/Time: -- [id number]:[id number] | | | |IMPRESSION: | |1. Overall [...]
--- OUTSIDE RECORDS SUMMARY | ~2019-09-28 | XMS | Encounter Summary ---
Demographics + + + | Address | [address] | | | [place] [address] | + + + | Home Phone [...] [place] | | | | | [address] | | + + + + + Care Team Providers + +------+ + | Care Railway Signalling Engineer Name | Role | Phone | [...] + + | 08/14/ | Documentati | [facility] | Katharine Moncada, | Other (urgent | | 2019 | on | CARDIOLOGY [place] | Technologist | report) | | | | [address] | | | | | | [place] | | | | | | [address] | | | | | | [phone] | | | +--------+ + + + [...] [place] | | | | | | [address] | | | | | | | | +--------+---------+ + + + documented as of this encounter Visit Diagnoses Not on filedocumented in this encounter"
--- OUTSIDE RECORDS SUMMARY | ~2019-09-28 | XMS | Encounter Summary ---
Demographics + + + | Address | [address] | | | [place] [address] | + + + | Home Phone [...] [place] | | | | | [address] | | + + + + + Care Team Providers + +------+ + | Care Office Lead Name | Role | Phone | [...] + + | 08/09/ | Clinical | [facility] | Desiree Peterson DO | Syncope, unspecified | | 2019 | Support | CARDIOLOGY [place] | [address] | syncope type | | | | [address] | [place], [place] | | | | | [place] [address] | [address] | | | | | [place] | | | | | | [address] | [place] | | | | | [phone] | [address]OL[address] | | | | | | [address] | | | | | | [place] [address] | | | | | | [phone] | | | | | | | [...] [place] | | | | | | [address] | | | | | | | | +--------+---------+ + + + documented as of this encounter Visit Diagnoses + + | Diagnosis | + + | Syncope, unspecified syncope type | + + documented in this encounter"
--- OUTSIDE RECORDS SUMMARY | ~2019-09-28 | XMS | Encounter Summary ---
Demographics + + + | Address | [address] | | | [place] [address] | + + + | Home Phone [...] [place] | | | | | [address] | | + + + + + Care Team Providers + +------+ + | Care Digital Specialist Name | Role | Phone | + +------+ + | Thierry Fry MD | PCP | | + +------+ + Encounter Details +--------+ + + + + | Date | Type | Department | Care Team | Description | +--------+ + + + + | 03/06/ | Hospital | [facility] | Katharine Cardona PA-C | Essential | | 2015 | Encounter | MED CTR LABORATORY | [address] | hypertension | | | | [address] [place] | [place] [address] | | | | | [place], [place] | [phone] | | | | | [address] | | | | | | [phone] | | | +--------+ + + + [...] 0 | | | | (VITAMIN D-3) [address] | mouth Once a week. | | [...] + + + +---------+ + + | [place]-3 Fatty | Take 1,000 mg by | | 0 | 03/29/20 | | | Acids (FISH OIL | mouth 3 times daily. | | | 12 | 5 | | CONCENTRATE) 1000 MG | | | | | | | CAPS | | | | | | + + + +---------+ + + | [place]-3 Fatty | Take 1,000 mg by | [...] | | | | | [place] | | | | | | [address] | | | | | | | [...] mL/min/1.73m2 | [facility] | | | [facility] | RATE,ESTIMATED | | MEDICAL | | | | mL/min/1.46f7Ubey than | | CENTER - | | [...] | 9.6 | 8.3 - 10.5 | [facility] | | | | | mg/dL | [facility] | | | | | | MEDICAL | | | | | | CENTER - | | | | | | LABORATORY | | + + + + + + | Albumin | 4.1 | 3.2 - 5.0 g/dL | [facility] | | | | | | [facility] | | | | | | MEDICAL [...] [address] | [place] | [phone] | | [facility] | | [address] | | | - LABORATORY | | | | + + + + + documented in this encounter Visit Diagnoses + + | Diagnosis | + + | Essential hypertension Unspecified essential hypertension | + + documented in this encounter"
--- OUTSIDE RECORDS SUMMARY | ~2019-09-28 | XMS | Encounter Summary ---
Demographics + + + | Address | [address] | | | [place] [address] | + + + | Home Phone [...] [place] | | | | | [address] | | + + + + + Care Team Providers + +------+ + | Care Pricing Strategist Name | Role | Phone | + +------+ + PCP | Unavailable | + +------+ + Encounter Details +--------+ + + + + | Date | Type | Department | Care Team | Description | +--------+ + + + + | 04/27/ | Hospital | [facility] | Sage Garza MD | | | 2001 | Encounter | HOSPITAL EMERGENCY | | | | | | CENTER [address] | | | | [address] [place], [place] | | | | | | [address] | | | | | | [phone] | | | +--------+ + + + [...] [place] | | | | | | [address] | | | | | | | | +--------+---------+ + + + documented as of this encounter Visit Diagnoses Not on filedocumented in this encounter"
--- OUTSIDE RECORDS SUMMARY | ~2019-09-28 | XMS | Encounter Summary ---
Demographics + + + | Address | [address] | | | [place] [address] | + + + | Home Phone [...] [place] | | | | | [address] | | + + + + + Care Team Providers + +------+ + | Care Novelty Balloon Assembler And Packer Name | Role | Phone | [...] [address] | | | | | [place], [place] | Shaheen Simons | | | | | [address] | [place] [address] | | | | | [phone] | [phone] | | | | | | | [...] [place] | | | | | | [address] | | | | | | | [...] GIVEN Testing | | | performed at [facility];[address] [place] [address] CULTURE | | | 50,000 TO 100,000 CFU/ML | | | MIXED GRAM POSITIVE HAIDER NO SUSCEPTIBILITY TO FOLLOW | | | MULTIPLE ORGANISM TYPES PRESENT, | | | SUGGESTIVE OF CONTAMINATION OR COLONIZATION. SUGGEST RECOLLECTION FOR | | | CULTURE. Testing | | | performed at [facility];[address] [place] [address];[place] [address] REPORT | | | STATUS 06/08/2012 FINAL [...]
--- OUTSIDE RECORDS SUMMARY | ~2019-09-28 | XMS | Encounter Summary ---
Demographics + + + | Address | [address] | | | [place] [address] | + + + | Home Phone [...] [place], [place] | | | | | [address] | | + + + + + Care Team Providers + +------+ + | Care Funeral Home Manager Name | Role | Phone | + +------+ + PCP | Unavailable | + +------+ + Encounter Details +--------+ + + + + | Date | Type | Department | Care Team | Description | +--------+ + + + + | 03/11/ | [facility] | [place] | Deon Gonzales | | | 2005 | Encounter | MED CTR SLEEP | MD Laure[place] [address] | | | | | [place] [address] | [address] [place] | | | | | [place], [place] | [place] [address] | | | | | [address] | [phone] | | | | | [phone] | | | +--------+ + + + [...] [place] | | | | | | [address] | | | | | | | | +--------+---------+ + + + documented as of this encounter Visit Diagnoses Not on filedocumented in this encounter"
--- OUTSIDE RECORDS SUMMARY | ~2019-09-28 | XMS | Encounter Summary ---
Demographics + + + | Address | [address] | | | [place] [address] | + + + | Home Phone [...] [place] | | | | | [address] | | + + + + + Care Team Providers + +------+ + | Care Cotton Picking Machine Operator Name | Role | [...] | Telephone | [facility] | Frandy Teresa, | Imaging Only (1 year | | 2014 | | NEUROSURGERY [address] | DO [address] | x-ray ) | | | | [address] | [address] [place], [place] | | | | | [place], [place] | [id number] | | | | | [address] | | | | | | [phone] | | | +--------+ + + + [...] [place] | | | | | | [address] | | | | | | | | +--------+---------+ + + + documented as of this encounter Visit Diagnoses Not on filedocumented in this encounter"
--- OUTSIDE RECORDS SUMMARY | ~2019-09-28 | XMS | Encounter Summary ---
Demographics + + + | Address | [address] | | | [place] [address] | + + + | Home Phone [...] [place], [place] | | | | | [address] | | + + + + + Care Team Providers + +------+ + | Care Efficiency Miner Name | Role | Phone | + +------+ + PCP | Unavailable | + +------+ + Encounter Details +--------+ + + + + | Date | Type | Department | Care Team | Description | +--------+ + + + + | 04/01/ | Hospital | [facility] | | | | 1998 | Encounter | MED CTR XRAY [address] | | | | | | [place] | | | | | | [place] [address] | | | | | | [phone] | | | +--------+ + + + [...] | | | | | [place] | | | | | | [address] | | | | | | | | +--------+---------+ + + + documented as of this encounter Visit Diagnoses Not on filedocumented in this encounter"
--- OUTSIDE RECORDS SUMMARY | ~2019-09-28 | XMS | Encounter Summary ---
Demographics + + + | Address | [address] | | | [place] [address] | + + + | Home Phone [...] [place] | | | | | [address] | | + + + + + Care Team Providers + +------+ + | Care Veterinary Manager Name | Role | Phone | [...] + + | 07/06/ | Emergency | [facility] | Yunior [place], | Chest pain, | | 2014 | | MED CTR EMERGENCY | MD [address] | unspecified chest | | | | CENTER [address] | [place], [place] | pain type (Primary | | | | [place], [place] | [address] | Dx) | | | | [address] | | | | | | [phone] | | | +--------+ + + + [...] sent through Care Everywhere.CHEST PAIN, NON CARDIAC (FRISIAN)documented in this encounter Medications at Time of [...] 0 | | | | (VITAMIN D-3) [address] | mouth Once a week. | | [...] | | | | | ([facility]) | | | | | [...] [place] | | | | | | [address] | | | | | | | [...] [address] | [place] | [phone] | | [facility] | | [address] | | | - LABORATORY | | [...] [address] | [place] | [phone] | | [facility] | | [address] | | | - LABORATORY | | [...] | | | | | | [employer] | | | | | [...] + | [facility] | [address] | [place] | [phone] | | [facility] | | [address] | | | - LABORATORY | | [...] mL/min/1.73m2 | [facility] | | | [employer] | RATE,ESTIMATED | | MEDICAL | | | | mL/min/1.31p3Vsyh than | | CENTER - | | [...] [address] | [place] | [phone] | | [facility] | | [address] | | | - LABORATORY | | [...] [address] | [place] | [phone] | | [facility] | | [address] | | | - LABORATORY | | [...] | | | | MD NAZARIO JON ([id number]) | | | | | | on [...]
--- OUTSIDE RECORDS SUMMARY | ~2019-09-28 | XMS | Encounter Summary ---
Demographics + + + | Address | [address] | | | [place] [address] | + + + | Home Phone [...] + + + | Author | [facility] | + + + | Organization | [facility] | + + + | Address | Unknown | + + + | Phone | Unavailable | + + + Support + + + + + | Name | Relationship | Address | Phone | + + + + + | Kelsy Bautista | ECON | [address] | | | | | [place] | | | | | [address] | | + + + + + Care Team Providers + +------+ + | Care Passport Application Examiner Name | Role | Phone | [...] | | | | | | [place] [address] | | | | | | [phone] | | | | | | | [...] in | | | | | | [place] with a | | | | | [...] [facility] | | | | | [facility] | | | | | | Laboratory, [place], | | | | | | [place], delivered | | | | | | [...] by | | | | | | hmdorvyvIqz-Ntf-G: | | | | | | Increased [...] istryMHC-1: | | | | | | IslafgvyLQ43 stain | | | | | | [...] + + + | [facility] | [address] | [place] [address] | | | PATHOLOGY | [place] | | | + + + + + documented in this encounter Visit Diagnoses Not on filedocumented in this encounter
--- OUTSIDE RECORDS SUMMARY | ~2019-09-28 | XMS | Encounter Summary ---
Demographics + + + | Address | [address] | | | [place] [address] | + + + | Home Phone [...] [place] | | | | | [address] | | + + + + + Care Team Providers + +------+ + | Care Medicaid Billing Clerk Name | Role | Phone | [...] | abdominal | Martha, | [address], | | | | | pain GERD | SR. UNIX SYSTEM ADMINISTRATOR [address] | [address] | | | | | (gastroesoph | [address], [address]inder | [place], | | | | | ageal reflux | [address] [place] | [place] [address] | | | | | disease) | [place], [place] | Phone: | | | | | Fatty liver | [address] | [phone] | | | | | DM | Phone: | Fax: | | | | | (diabetes | [phone] | [phone] | | | | | mellitus) | Fax: | | | | | | (HCC) | [phone] | | +--------+ + + + + + Reason for Visit + + + | Reason | Comments | + + + | Gastroesophageal | epigastric pain | | Reflux | | + + + Encounter Details +--------+---------+ + + + | Date | Type | Department | Care Team | Description | +--------+---------+ + + + | 03/06/ | Office | [facility] | [facility], | Epigastric abdominal | | 2012 | Visit | GASTROENTEROLOGY | FORTUNATO Thomas [address] | pain (Primary Dx); | | | | [address] | [place], [address] | GERD | | | | [address] [place], [place] | [place], [place] | (gastroesophageal | | | | [address] | [address] | reflux disease); | | | | [phone] | | Fatty liver; DM | | [...] ago by Dr. Saravanan Tsai, in [facility]. Colonoscopy was done 05/[address] Hamlin in [facility]. Allergies Allergen Reactions Demerol Duloxetine Erythromycin [...] | | | | | [place], [place] | | | | | | [id number] | | | | | | | [...]
--- OUTSIDE RECORDS SUMMARY | ~2019-09-28 | XMS | Encounter Summary ---
Demographics + + + | Address | [address] | | | [place] [address] | + + + | Home Phone [...] [place], [place] | | | | | [address] | | + + + + + Care Team Providers + +------+ + | Care Product Line Manager Name | Role | Phone | + +------+ + PCP | Unavailable | + +------+ + Encounter Details +--------+ + + + + | Date | Type | Department | Care Team | Description | +--------+ + + + + | 01/16/ | Hospital | [facility] | | | | 2002 | Encounter | MED CTR XRAY [address] | | | | | | [place] | | | | | | [place] [address] | | | | | | [phone] | | | +--------+ + + + [...] | | | | | [place] | | | | | | [address] | | | | | | | | +--------+---------+ + + + documented as of this encounter Visit Diagnoses Not on filedocumented in this encounter"
--- OUTSIDE RECORDS SUMMARY | ~2019-09-28 | XMS | Encounter Summary ---
Demographics + + + | Address | [address] | | | [place] [address] | + + + | Home Phone [...] [place], [place] | | | | | [address] | | + + + + + Care Team Providers + +------+ + | Care Patcher Bowling Ball Name | Role | Phone | + [...] | | | | 1999 | | [place] [address] | | | | | | [phone] | | | +--------+ + + + [...] [place] | | | | | | [address] | | | | | | | | +--------+---------+ + + + documented as of this encounter Visit Diagnoses Not on filedocumented in this encounter"
--- OUTSIDE RECORDS SUMMARY | ~2019-09-28 | XMS | Encounter Summary ---
Demographics + + + | Address | [address] | | | [place] [address] | + + + | Home Phone [...] [place] | | | | | [address] | | + + + + + Care Team Providers + +------+ + | Care Counter Intelligence Technician Name | Role | Phone | [...] | | | | | Procedures | LIABILITY CLAIMS ADJUSTER [address] | [address] | | | | | DC OFFICE | | [address] | | | | | CONSULTATION | [address] | [place] | | | | | NEW/ESTAB | [facility], | [address] Phone: | | | | | PATIENT 60 | [place] [address] | [phone] | | | | | MIN | Phone: | Fax: | | | | | | [phone] | [phone] | | | | | | Fax: | | | | | | | [phone] | | +--------+--------+ + + + + Encounter Details +--------+---------+ + + + | Date | Type | Department | Care Team | Description | +--------+---------+ + + + | 05/02/ | Office | [facility] | Frandy Teresa, | Spondylolisthesis of | | 2013 | Visit | NEUROSURGERY [address] | DO [address] | lumbar region | | | | [address] | [address] [place], [place] | (Primary Dx); Lumbar | | | | [place], [place] | [id number] | stenosis; Lumbar | | | | [address] | | radicular pain; | | | | [phone] | | Lumbago | +--------+---------+ + + [...] original. Frandy Teresa DO [address] [address] [facility] [place] [address] FAX: NEUROSURGERY HISTORY AND PHYSICAL EXAMINATION CHIEF [...] Take 15 mg by mouth nightl y. [place]-3 Fatty Acids (FISH OIL CONCENTRATE) 1000 [...] no apparent deficits with short or terminal gauger supervisor memory. CRANIAL NERVES: II: Acuity is [...] Intrinsics 5 5 Ulnar Intrinsics 5 5 Electrocardiogram Technician Strength 5 5 Hip Flexion 5 [...] | | | | | [place] | | | | | | [address] | | | | | | | [...]
--- OUTSIDE RECORDS SUMMARY | ~2019-09-28 | XMS | Encounter Summary ---
Demographics + + + | Address | [address] | | | [place] [address] | + + + | Home Phone [...] [place] | | | | | [address] | | + + + + + Care Team Providers + +------+ + | Care Dusting And Brushing Machine Operator Name | Role | Phone [...] | Frandy Simons DO | [address] | | | | | of skin | [address] | [place], | | | | | sensation | [address] | [place] | | | | | Arthrodesis | [place], [place] | [address] | | | | | status Left | [address] | Phone: | | | | | leg | Phone: | [phone] | | | | | weakness | [phone] | Fax: | | | | | Procedures | Fax: | [phone] | | | | | MRI Lumbar | [phone] | | | | | | Spine [...] | Frandy Simons DO | [address] | | | | | of skin | [address] | [place], | | | | | sensation | [address] | [place] | | | | | Arthrodesis | [place] | [address] | | | | | status Left | [address] | Phone: | | | | | leg | Phone: | [phone] | | | | | weakness | [phone] | Fax: | | | | | Procedures | Fax: | [phone] | | | | | MRI Lumbar | [phone] | | | | | | Spine wo | | | | | | | Contrast | | | +--------+--------+ + + + + Encounter Details +--------+ + + + + | Date | Type | Department | Care Team | Description | +--------+ + + + + | 08/19/ | Hospital | [facility] | Frandy Teresa, | Status post lumbar | | 2013 | Encounter | MED CTR MRI [address] | DO [address] | spinal fusion; Left | | | | [place], | [address] [place] | leg numbness; Left | | | | [place] [address] | [address] | leg weakness | | | | [phone] | | | +--------+ + + + [...] + + + +---------+ + + | [place]-3 Fatty | Take 1,000 mg by [...] [place] | | | | | | [address] | | | | | | | [...] the round structure with high T1 and T1volafv in the right L3 vertebral | | [...] + | MISCELLANEOUS LAB | | | [phone] | + +---------+ + + | MISCELANIOUS LAB | | | [phone] | + +---------+ + + documented in [...]
--- OUTSIDE RECORDS SUMMARY | ~2019-09-28 | XMS | Encounter Summary ---
Demographics + + + | Address | [address] | | | [place] [address] | + + + | Home Phone [...] [place], [place] | | | | | [address] | | + + + + + Care Team Providers + +------+ + | Care Business Services Assistant Name | Role | Phone | + +------+ + PCP | Unavailable | + +------+ + Encounter Details +--------+ + + + + | Date | Type | Department | Care Team | Description | +--------+ + + + + | 12/31/ | Hospital | [facility] | | | | 1996 | Encounter | MED CTR XRAY [address] | | | | | | [address] | | | | | | [place] [address] | | | | | | [phone] | | | +--------+ + + + [...] | | | | | [place] | | | | | | [address] | | | | | | | | +--------+---------+ + + + documented as of this encounter Visit Diagnoses Not on filedocumented in this encounter"
--- OUTSIDE RECORDS SUMMARY | ~2019-09-28 | XMS | Encounter Summary ---
Demographics + + + | Address | [address] | | | [place] [address] | + + + | Home Phone [...] [place], [place] | | | | | [address] | | + + + + + Care Team Providers + +------+ + | Care Mill Laborer Name | Role | Phone | + +------+ + PCP | Unavailable | + +------+ + Encounter Details +--------+ + + + + | Date | Type | Department | Care Team | Description | +--------+ + + + + | 04/16/ | Hospital | [facility] | | | | 1997 | Encounter | MED CTR XRAY [address] | | | | | | [place] | | | | | | [place] [address] | | | | | | [phone] | | | +--------+ + + + [...] | | | | | [place] | | | | | | [address] | | | | | | | | +--------+---------+ + + + documented as of this encounter Visit Diagnoses Not on filedocumented in this encounter"
--- OUTSIDE RECORDS SUMMARY | ~2019-09-28 | XMS | Encounter Summary ---
Demographics + + + | Address | [address] | | | [place] [address] | + + + | Home Phone [...] [place], [place] | | | | | [address] | | + + + + + Care Team Providers + +------+ + | Care Convex Grinder Operator Name | Role | Phone [...] [place] | | | | | | [address] | | | | | | [phone] | | | +--------+ + + + [...] | | | | | [place] | | | | | | [address] | | | | | | | | +--------+---------+ + + + documented as of this encounter Visit Diagnoses Not on filedocumented in this encounter"
--- OUTSIDE RECORDS SUMMARY | ~2019-09-28 | XMS | Encounter Summary ---
Demographics + + + | Address | [address] [facility] [address] | | | [place] [address] | + + + | Home Phone [...] [place] | | | | | [address] | | + + + + + Care Team Providers + +------+ + | Care Fruit Buyer Name | Role | Phone | [...] | Transcriptions | + + | Interface, Religious Education Coordinator In - 11/04/2006 3:03 AM PST | | [address] | | [place], [place] [address] [facility] | | ClinicsOPERATION RECORDMed Rec [...] skin retractor was put in place. The [place] elevators wereused to separate the | [...]
--- OUTSIDE RECORDS SUMMARY | ~2019-09-28 | XMS | Encounter Summary ---
Demographics + + + | Address | [address] | | | [place] [address] | + + + | Home Phone [...] [place] | | | | | [address] | | + + + + + Care Team Providers + +------+ + | Care Outpatient Facility Physical Therapist Name | Role | Phone [...] [address] | [address] [place], [place] | (Primary Dx) | | | | [place], [place] | [address] | | | | | [address] | | | | | | [phone] | | | +--------+ + + + [...] [place] | | | | | | [address] | | | | | | | [...] + | MISCELLANEOUS LAB | | | [phone] | + +---------+ + + | MISCELANIOUS LAB | | | [phone] | + +---------+ + + documented in this encounter Visit Diagnoses + + | Diagnosis | + + | Status post lumbar spinal fusion - Primary Arthrodesis status | + + documented in this encounter"
--- OUTSIDE RECORDS SUMMARY | ~2019-09-28 | XMS | Encounter Summary ---
Demographics + + + | Address | [address] [facility] [address] | | | [place] [address] | + + + | Home Phone [...] [place] | | | | | [address] | | + + + + + Care Team Providers + +------+ + | Care Multimedia Services Manager Name | Role | Phone [...] [id number] | | | | | | [place], [place] | | | | | | [address] | | | | | | [phone] | | | +--------+ + + + [...] + + + + | [facility] | [address] | [place] [address] | | | PATHOLOGY | [address] [...] Re | | | | | | [address] | | | | + + + + + + + + | Specimen | + + | | + + + + + + + | Performing | Address | City/State/Zipcode | Phone Number | | Organization | | | | + + + + + | [facility] | [address] | [place] [address] | | | PATHOLOGY | [address] [...] Re | | | | | | [address] | | | | + + + + + + + + | Specimen | + + | | + + + + + + + | Performing | Address | City/State/Zipcode | Phone Number | | Organization | | | | + + + + + | [facility] | [address] | [place] [address] | | | PATHOLOGY | [address] [...] Re | | | | | | [address] | | | | + + + + + + + + | Specimen | + + | | + + + + + + + | Performing | Address | City/State/Zipcode | Phone Number | | Organization | | | | + + + + + | [facility] | [address] | [place] [address] | | | PATHOLOGY | [address] [...] Re | | | | | | [address] | | | | + + + + + + + + | Specimen | + + | | + + + + + + + | Performing | Address | City/State/Zipcode | Phone Number | | Organization | | | | + + + + + | [facility] | [address] | [place] [address] | | | PATHOLOGY | [address] | | | + + + + + documented in this encounter Visit Diagnoses Not on filedocumented in this encounter"
--- OUTSIDE RECORDS SUMMARY | ~2019-09-28 | XMS | Encounter Summary ---
Demographics + + + | Address | [address] | | | [place] [address] | + + + | Home Phone [...] [place], [place] | | | | | [address] | | + + + + + Care Team Providers + +------+ + | Care Financial Foundations Associate Name | Role | Phone | + +------+ + PCP | Unavailable | + +------+ + Encounter Details +--------+ + + + + | Date | Type | Department | Care Team | Description | +--------+ + + + + | 05/25/ | Hospital | [facility] | | | | 1991 | Encounter | MED CTR LABORATORY | | | | | | [address] | | | | | | [place] | | | | | | [address] | | | | | | [phone] | | | +--------+ + + + [...] | | | | | [place] | | | | | | [address] | | | | | | | | +--------+---------+ + + + documented as of this encounter Visit Diagnoses Not on filedocumented in this encounter"
--- OUTSIDE RECORDS SUMMARY | ~2019-09-28 | XMS | Encounter Summary ---
Demographics + + + | Address | [address] | | | [place] [address] | + + + | Home Phone [...] [place] | | | | | [address] | | + + + + + Care Team Providers + +------+ + | Care Concession Manager Name | Role | Phone | [...] + | 03/04/ | Telephone | [facility] | Baudilio Newman | Other (Plavix) | | 2014 | | NEUROLOGY LAURIE | MD Pollo Need updated | | | | | [address], | address | | | | | [address] [place] | | | | | | [place] [address] | | | | | | [phone] | | | +--------+ + + + [...] [place] | | | | | | [address] | | | | | | | | +--------+---------+ + + + documented as of this encounter Visit Diagnoses Not on filedocumented in this encounter"
--- OUTSIDE RECORDS SUMMARY | ~2019-09-28 | XMS | Clinical Summary ---
Demographics + + + | Address | [address] | | | [place] [address] | + + + | Home Phone [...] [place] | | | | | [address] | | + + + + + Care Team Providers + +------+ + | Care Regional Manager Name | Role | Phone | + +------+ + PCP | Unavailable | + +------+ + Source Comments EDWARD is fully live on both [facility] Ambulatory and [facility] InPatient.[facility] Allergies Not on File Medications Not [...] | [facility] | xxxxxxxxxx | 02/22/20 | [phone] | [address] | Medica | | | RE A & | | 15-Pre | 1 | [address] | re | | | B | | sent | | [place] | | | | | | | | [address] | | + +--------+ +--------+ + +--------+ + +--------+ +--------+ + + | Guarantor Name | Accoun | Relation to | Date | Phone | Billing Address | | | t Type | Patient | of | | | | | | | | | | + +--------+ +--------+ + + | CINDY ARNDT | Person | Self | [birth year] | [address] | | | al/Fam | | 1955 | [phone] | [address] [place] | | | devonte | | | 5 (Home) | [address] | + +--------+ +--------+ + +"
--- OUTSIDE RECORDS SUMMARY | ~2019-09-28 | XMS | Encounter Summary ---
Demographics + + + | Address | [address] | | | [place] [address] | + + + | Home Phone [...] [place], [place] | | | | | [address] | | + + + + + Care Team Providers + +------+ + | Care Vocational Examiner Name | Role | Phone | + +------+ + PCP | Unavailable | + +------+ + Encounter Details +--------+ + + + + | Date | Type | Department | Care Team | Description | +--------+ + + + + | 07/17/ | Hospital | [facility] | | | | 1997 - | Encounter | MED CTR GENERIC PSY | | | | | | CONV DEPT [address] | | | | 07/25/ | | [place], | | | | 1997 | | [place] [address] | | | | | | [phone] | | | +--------+ + + + [...] [place] | | | | | | [address] | | | | | | | | +--------+---------+ + + + documented as of this encounter Visit Diagnoses Not on filedocumented in this encounter"
--- OUTSIDE RECORDS SUMMARY | ~2019-09-28 | XMS | Encounter Summary ---
Demographics + + + | Address | [address] | | | [place] [address] | + + + | Home Phone [...] [place] | | | | | [address] | | + + + + + Care Team Providers + +------+ + | Care Market Specialist Name | Role | Phone | [...] | [facility] | Deon Gonzales | ROGERS (obstructive | | 2012 | Visit | SLEEP DISORDER [address] | MD Laure[address] | sleep apnea) | | | | [address] [place] | [address] [place] | (Primary Dx); | | | | [place] [address] | [place] [address] | Sleepiness | | | | [phone] | [phone] | | | | | | | [...] differen t from the original. 03/06/13 1000 [place] Sleepiness Scale Sitting and reading 3 Watching [...] by mouth Daily., Disp: , Rfl: ; [place]-3 Fatty Acids (FISH OIL CONCENTRATE) 1000 [...] | | | | [place] [address] | | | | | | [id number] | | | | | | | | +--------+---------+ + + + documented as of this encounter Visit Diagnoses + + | Diagnosis | + + | ROGERS (obstructive sleep apnea) - Primary Obstructive sleep apnea (adult) (pediatric) | + + | Sleepiness Other alteration of consciousness | + + documented in this encounter"
--- OUTSIDE RECORDS SUMMARY | ~2019-09-28 | XMS | Encounter Summary ---
Demographics + + + | Address | [address] | | | [place] [address] | + + + | Home Phone [...] [place] | | | | | [address] | | + + + + + Care Team Providers + +------+ + | Care Clock And Watch Hands Dipper Name | Role | Phone | [...] [address] | [address] [place], [place] | Anxiety; Anemia; | | | | [place] | [address] | Irregular heartbeat; | | | | [address] | | Depression; | | | | [phone] | | Migraine; | | | | [...] | | | | | | [facility] | | | | | | [address] | | | | | | | [...]
--- OUTSIDE RECORDS SUMMARY | ~2019-09-28 | XMS | Encounter Summary ---
Demographics + + + | Address | [address] | | | [place] [address] | + + + | Home Phone [...] [place] | | | | | [address] | | + + + + + Care Team Providers + +------+ + | Care Processing Clerk Name | Role | Phone [...] | | spondylolist | | [address] | | | | | hesis | | [place], | | | | | Spinal | | [place] [address] | | | | | stenosis, | | Phone: | | | | | lumbar | | [phone] | | | | | region, | | Fax: | | | | | without | | [phone] | | | | | neurogenic | [...] + + | 07/02/ | Surgery | [facility] | Frandy Teresa, | MIS L5-S1 | | 2013 | | MED CTR OR INTRA OP | DO [address] | TRANSFORAMINAL | | | | [address] | [address] [place], [place] | LUMBAR INTERBODY | | | | [place] | [phone] | FUSION | | | | [address] | | | | | | [phone] | | | +--------+---------+ + + + [...] might be different fro m the original. [facility] DISCHARGE SUMMARY PATIENT NAME: Cindy Arndt [...] Stable for discharge to SNF. DISPOSITION: SNF ([facility]) DISCHARGE MEDICATIONS Medications prior to admission [...] Take 15 mg by mouth nightl y. [place]-3 Fatty Acids (FISH OIL CONCENTRATE) 1000 MG [...] + + + +---------+ + + | Mcintosh-3 Fatty | Take 1,000 mg by | [...] prophylaxis -DC plan: SNF versus home with [facility] any time. aria T Neff RN - 07/04/2014 6:56 PM PDTFoley cath dc'd and MARI drain dc'd no problems. Chris Lynn PA-C - 07/04/2014 7:43 AM PDT [facility] PROGRESS NOTE Pt. Name/Age/: Cindy Arndt 58 y.o. 1955 Med. Record Number: [id number] Date of admission: 07/02/2014 Subjective: The patient [...] mari drain and riley cath today. 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 Patient Active Problem List Diagnosis LUMBAR DISC [...] signed by: Chris Nicole, 07/04/2014 7:45 [facility] Chris Lynn PA-C - 07/03/2014 7:13 AM PDT . [facility] PROGRESS NOTE Pt. Name/Age/: Cindy Arndt 58 y.o. 1955 Med. Record Number: [id number] Date of admission: 07/02/2014 Subjective: The patient [...] signed by: Chris Nicole, 07/03/2014 7:13 [facility] Ton Johnston, KRIS - 07/03/2014 6:50 [...] | | | | | [place] | | | | | | [address] | | | | | | | [...] | | | MEDTRO | | | [place] | +---+--------+ + +--------+ +---+ + | [...] | [facility] | [address] | [place], [place] | [phone] | | [facility] | | [address] | | | - LABORATORY | | | | + + + + + | [facility] | [address] | [place], [place] | | | [facility] | | [address] | | | - LABORATORY | | [...] | [facility] | [address] | [place] | [phone] | | [facility] | | [address] | | | - LABORATORY | | | | + + + + + | [facility] | [address] | [place] | | | [facility] | | [address] | | | - LABORATORY | | [...] | [facility] | [address] | [place], [place] | [phone] | | [facility] | | [address] | | | - LABORATORY | | | | + + + + + | [facility] | [address] | [place], [place] | | | [facility] | | [address] | | | - LABORATORY | | [...] | [facility] | [address] | [place] | [phone] | | [facility] | | [address] | | | - LABORATORY | | | | + + + + + | [facility] | [address] | [place], [place] | | | [facility] | | [address] | | | - LABORATORY | | [...] | [facility] | [address] | [place], [place] | [phone] | | [facility] | | [address] | | | - LABORATORY | | | | + + + + + | [facility] | [address] | [place] | | | [facility] | | [address] | | | - LABORATORY | | [...] | [facility] | [address] | [place] | [phone] | | [facility] | | [address] | | | - LABORATORY | | | | + + + + + | [facility] | [address] | [place] | | | [facility] | | [address] | | | - LABORATORY | | [...] + + | Performing | Address | City/State/[facility] | Phone Number | | Organization | | | | + + + + + | [facility] | [address] | [place] | [phone] | | [facility] | | [address] | | | - LABORATORY | | | | + + + + + | [facility] | [address] | [place] | | | [facility] | | [address] | | | - LABORATORY | | [...] | [facility] | [address] | [place] | [phone] | | [facility] | | [address] | | | - LABORATORY | | | | + + + + + | [facility] | [address] | [place] | | | [facility] | | [address] | | | - LABORATORY | | [...] [address] | [place] | [phone] | | [facility] | | [address] | | | - LABORATORY | | | | + + + + + | [facility] | [address] | [place], [place] | | | [facility] | | [address] | | | - LABORATORY | | [...] | of hardware for posterior fusion from Z1odexllm S1 with interbody hardware at L5-S1. The [...] + | MISCELLANEOUS LAB | | | [phone] | + +---------+ + + | MISCELANIOUS LAB | | | [phone] | + +---------+ + + POC Glucose [...] | [facility] | [address] | [place] | [phone] | | [facility] | | [address] | | | - LABORATORY | | | | + + + + + | [facility] | [address] | [place] | | | [facility] | | [address] | | | - LABORATORY | | [...] | [facility] | [address] | [place], [place] | [phone] | | [facility] | | [address] | | | - LABORATORY | | | | + + + + + | [facility] | [address] | [place] | | | [facility] | | [address] | | | - LABORATORY | | [...] | [facility] | [address] | [place] | [phone] | | [facility] | | [address] | | | - LABORATORY | | | | + + + + + | [facility] | [address] | [place] | | | [facility] | | [address] | | | - LABORATORY | | [...] | [facility] | [address] | [place] | [phone] | | [facility] | | [address] | | | - LABORATORY | | | | + + + + + | [facility] | [address] | [place] | | | [facility] | | [address] | | | - LABORATORY | | [...] | [facility] | [address] | [place], [place] | [phone] | | [facility] | | [address] | | | - LABORATORY | | | | + + + + + | [facility] | [address] | [place], [place] | | | [facility] | | [address] | | | - LABORATORY | | [...] ST. | [address] | [place] | | | [facility] | | [address] | | | - BLOOD BANK | [...] mLs | | Surgical | | 1:200,000 0.25-1:101578 % | | 14 12:42 | | [...]
--- OUTSIDE RECORDS SUMMARY | ~2019-09-28 | XMS | Encounter Summary ---
Demographics + + + | Address | [address] | | | [place] [address] | + + + | Home Phone [...] [place] | | | | | [address] | | + + + + + Care Team Providers + +------+ + | Care Blow Mold Operator Name | Role | Phone | [...] | Frandy Simons DO | [address] | | | | | of skin | [address] | [place], | | | | | sensation | [address] | [place] | | | | | Arthrodesis | [place], [place] | [address] | | | | | status Left | [address] | Phone: | | | | | leg | Phone: | [phone] | | | | | weakness | [phone] | Fax: | | | | | Procedures | Fax: | [phone] | | | | | MRI Lumbar | [phone] | | | | | | Spine [...] [address] | [address] [place], [place] | | | | | [place], [place] | [address] | | | | | [address] | | | | | | [phone] | | | +--------+ + + + [...] [place] | | | | | | [address] | | | | | | | [...] the round structure with high T1 and H4pfyebg in the right L3 vertebral | | [...] + | MISCELLANEOUS LAB | | | [phone] | + +---------+ + + | MISCELANIOUS LAB | | | [phone] | + +---------+ + + documented in [...]
--- OUTSIDE RECORDS SUMMARY | ~2019-09-28 | XMS | Encounter Summary ---
Demographics + + + | Address | [address] | | | [place] [address] | + + + | Home Phone [...] [place] | | | | | [address] | | + + + + + Care Team Providers + +------+ + | Care Sr. Payroll Manager Name | Role | Phone | [...] [place] | | | | | | [address] | | | | | | [phone] | | | +--------+ + + + [...] [place] | | | | | | [address] | | | | | | | | +--------+---------+ + + + documented as of this encounter Visit Diagnoses Not on filedocumented in this encounter"
--- OUTSIDE RECORDS SUMMARY | ~2019-09-28 | XMS | Encounter Summary ---
Demographics + + + | Address | [address] | | | [place] [address] | + + + | Home Phone [...] [place], [place] | | | | | [address] | | + + + + + Care Team Providers + +------+ + | Care Sheet Metal Duct Installer Apprentice Name | Role | Phone | + +------+ + PCP | Unavailable | + +------+ + Encounter Details +--------+ + + + + | Date | Type | Department | Care Team | Description | +--------+ + + + + | 12/24/ | Hospital | [facility] | | | | 1998 | Encounter | MED CTR XRAY [address] | | | | | | [address] | | | | | | [place] [address] | | | | | | [phone] | | | +--------+ + + + [...] | | | | | [place] | | | | | | [address] | | | | | | | | +--------+---------+ + + + documented as of this encounter Visit Diagnoses Not on filedocumented in this encounter"
--- OUTSIDE RECORDS SUMMARY | ~2019-09-28 | XMS | Encounter Summary ---
Demographics + + + | Address | [address] | | | [place] [address] | + + + | Home Phone [...] [place] | | | | | [address] | | + + + + + Care Team Providers + +------+ + | Care Chair Maker Name | Role | Phone | [...] + + | 07/08/ | Telephone | [facility] | Frandy Teresa, | Other (post op call | | 2013 | | NEUROSURGERY [address] | DO [address] | ) | | | | [address] | [address] [place], [place] | | | | | [place], [place] | [address] | | | | | [address] | | | | | | [phone] | | | +--------+ + + + [...] | | | | | [place] | | | | | | [address] | | | | | | | | +--------+---------+ + + + documented as of this encounter Visit Diagnoses Not on filedocumented in this encounter"
--- OUTSIDE RECORDS SUMMARY | ~2019-09-28 | XMS | Encounter Summary ---
Demographics + + + | Address | [address] | | | [place] [address] | + + + | Home Phone [...] [place], [place] | | | | | [address] | | + + + + + Care Team Providers + +------+ + | Care Kinesiology Internship Name | Role | Phone | + +------+ + PCP | Unavailable | + +------+ + Encounter Details +--------+ + + + + | Date | Type | Department | Care Team | Description | +--------+ + + + + | 05/29/ | Hospital | [facility] | | | | 1991 | Encounter | MED CTR LABORATORY | | | | | | [address] | | | | | | [place] | | | | | | [address] | | | | | | [phone] | | | +--------+ + + + [...] | | | | | [place] | | | | | | [address] | | | | | | | | +--------+---------+ + + + documented as of this encounter Visit Diagnoses Not on filedocumented in this encounter"
--- OUTSIDE RECORDS SUMMARY | ~2019-09-28 | XMS | Encounter Summary ---
Demographics + + + | Address | [address] | | | [place] [address] | + + + | Home Phone [...] [place], [place] | | | | | [address] | | + + + + + Care Team Providers + +------+ + | Care Laundry Aid Name | Role | Phone | + +------+ + PCP | Unavailable | + +------+ + Encounter Details +--------+ + + + + | Date | Type | Department | Care Team | Description | +--------+ + + + + | 05/23/ | Hospital | [facility] | | | | 1991 | Encounter | MED CTR XRAY [address] | | | | | | [address] | | | | | | [place] [address] | | | | | | [phone] | | | +--------+ + + + [...] | | | | [place] | | | | | | [address] | | | | | | | | +--------+---------+ + + + documented as of this encounter Visit Diagnoses Not on filedocumented in this encounter"
--- OUTSIDE RECORDS SUMMARY | ~2019-09-28 | XMS | Encounter Summary ---
Demographics + + + | Address | [address] | | | [place] [address] | + + + | Home Phone [...] [place] | | | | | [address] | | + + + + + Care Team Providers + +------+ + | Care Reclamation Supervisor Name | Role | Phone | [...] [place] | | | | | | [address] | | | | | | [phone] | | | +--------+ + + + [...] [place] | | | | | | [address] | | | | | | | | +--------+---------+ + + + documented as of this encounter Visit Diagnoses Not on filedocumented in this encounter"
--- OUTSIDE RECORDS SUMMARY | ~2019-09-28 | XMS | Encounter Summary ---
Demographics + + + | Address | [address] | | | [place] [address] | + + + | Home Phone [...] [place] | | | | | [address] | | + + + + + Care Team Providers + +------+ + | Care Family Partner Name | Role | Phone | [...] [address] | [address] [place], [place] | fusion | | | | [place], [place] | [address] | | | | | [address] | | | | | | [phone] | | | +--------+ + + + [...] [place] | | | | | | [address] | | | | | | | | +--------+---------+ + + + documented as of this encounter Visit Diagnoses + + | Diagnosis | + + | Lumbago - Primary | + + | S/P lumbar fusion Arthrodesis status | + + documented in this encounter"
--- OUTSIDE RECORDS SUMMARY | ~2019-09-28 | XMS | Encounter Summary ---
Demographics + + + | Address | [address] | | | [place] [address] | + + + | Home Phone [...] [place] | | | | | [address] | | + + + + + Care Team Providers + +------+ + | Care Director Of Content And Programming Name | Role | Phone | + +------+ + | Basim Bolanos MD | PCP | | + +------+ + Encounter Details +--------+ + + + + | Date | Type | Department | Care Team | Description | +--------+ + + + + | 04/18/ | Abstract | [facility] [place] | [facility], | | | 2012 | | GASTROENTEROLOGY | [address] | | | | | [address] [place] | [place], [address] | | | | | [address] [place], [place] | [place], [place] | | | | | [address] | [address] | | | | | [phone] | | | +--------+ + + + [...] | | | | | [place] | | | | | | [address] | | | | | | | | +--------+---------+ + + + documented as of this encounter Visit Diagnoses Not on filedocumented in this encounter"
--- OUTSIDE RECORDS SUMMARY | ~2019-09-28 | XMS | Encounter Summary ---
Demographics + + + | Address | [address] | | | [place] [address] | + + + | Home Phone [...] [place] | | | | | [address] | | + + + + + Care Team Providers + +------+ + | Care Director Of Cardiopulmonary Services Name | Role | Phone | [...] | 07/19/ | Telephone | [facility] | Frandy Teresa, | Appointment | | 2013 | | NEUROSURGERY [address] | DO [address] | | | | | [address] | [address] [place], [place] | | | | | [place], [place] | [address] | | | | | [address] | | | | | | [phone] | | | +--------+ + + + [...] [place] | | | | | | [address] | | | | | | | | +--------+---------+ + + + documented as of this encounter Visit Diagnoses Not on filedocumented in this encounter"
--- OUTSIDE RECORDS SUMMARY | ~2019-09-28 | XMS | Encounter Summary ---
Demographics + + + | Address | [address] [facility] [address] | | | [place] [address] | + + + | Home Phone [...] + | Author | [facility] | + + + | Organization | [facility] | + + + | Address | Unknown | + + + | Phone | Unavailable | + + + Support + + + + + | Name | Relationship | Address | Phone | + + + + + | Kelsy Bautista | [address] | [address] | | | | | [place] | | | | | [address] | | + + + + + Care Team Providers + +------+ + | Care Miller Supervisor Name | Role | Phone | [...] | | | | | | [place] [address] | | | | | | [phone] | | | | | | | [...] in | | | | | | [place] with a | | | | | [...] | | | | | | [facility] | | | | | | Laboratory, [place], | | | | | | [place], delivered | | | | | | [...] by | | | | | | lmfrxpctMja-Zmh-I: | | | | | | Increased [...] istryMHC-1: | | | | | | [id number] stain | | | | | | [...] | + + + + + | [facility] | [address] | [place] [address] | | | PATHOLOGY | [place] | | | + + + + + documented in this encounter Visit Diagnoses Not on filedocumented in this encounter
--- OUTSIDE RECORDS SUMMARY | ~2019-09-28 | XMS | Encounter Summary ---
Demographics + + + | Address | [address] | | | [place] [address] | + + + | Home Phone [...] [place], [place] | | | | | [address] | | + + + + + Care Team Providers + +------+ + | Care Front Desk Lead Name | Role | Phone | + +------+ + PCP | Unavailable | + +------+ + Encounter Details +--------+ + + + + | Date | Type | Department | Care Team | Description | +--------+ + + + + | 12/27/ | Hospital | [facility] | | | | 1995 | Encounter | MED CTR LABORATORY | | | | | | [address] | | | | | | [place] | | | | | | [address] | | | | | | [phone] | | | +--------+ + + + [...] | | | | | [place] | | | | | | [address] | | | | | | | | +--------+---------+ + + + documented as of this encounter Visit Diagnoses Not on filedocumented in this encounter"
--- OUTSIDE RECORDS SUMMARY | ~2019-09-28 | XMS | Encounter Summary ---
Demographics + + + | Address | [address] | | | [place] [address] | + + + | Home Phone [...] [place] | | | | | [address] | | + + + + + Care Team Providers + +------+ + | Care Farm Instructor Name | Role | Phone | + +------+ + | Basim Bolanos MD | PCP | | + +------+ + Encounter Details +--------+ + + + + | Date | Type | Department | Care Team | Description | +--------+ + + + + | 01/24/ | Abstract | [facility] [place] | [facility], | | | 2012 | | GASTROENTEROLOGY | [address] | | | | | [address] [place] | [place], [address] | | | | | [address] [place], [place] | [place], [place] | | | | | [address] | [address] | | | | | [phone] | | | +--------+ + + + [...] [place] | | | | | | [address] | | | | | | | | +--------+---------+ + + + documented as of this encounter Visit Diagnoses Not on filedocumented in this encounter"
--- OUTSIDE RECORDS SUMMARY | ~2019-09-28 | XMS | Encounter Summary ---
Demographics + + + | Address | [address] | | | [place] [address] | + + + | Home Phone [...] [place], [place] | | | | | [address] | | + + + + + Care Team Providers + +------+ + | Care Early Morning Babysitter Name | Role | Phone | + +------+ + PCP | Unavailable | + +------+ + Encounter Details +--------+ + + + + | Date | Type | Department | Care Team | Description | +--------+ + + + + | 05/23/ | Hospital | [facility] | Dale, Heath E A, | | | 2012 | Encounter | MED CTR XRAY [address] | MD [address] | | | | | [place] | [place] | | | | | [place] [address] | [address] | | | | | [phone] | | | +--------+ + + + [...] + + + +---------+ + + | [place]-3 Fatty | Take 1,000 mg by | [...] [place] | | | | | | [address] | | | | | | | [...] Performed At | + + + | [facility] Diagnostic Imaging Department | [facility] | | [address] [facility] [facility] [address] | [facility] | | [...] Transcribed Date/Time: | | | 05/23/2012 16:55 Office Support Associate: <Electronically Signed | | | by Adriano Anne MD> 05/23/12 9095 | | + + + + + | Procedure Note | + + | Manohar Martinez Conversion - 11/30/2013 5:47 PM [facility] | | Diagnostic Imaging Department [address] [place] | | LUMBAR [...] 16:37 | |Transcribed Date/Time: 05/23/2012 16:55 | |Office Support Associate: | |<Electronically Signed by Adriano Anne [...]
--- OUTSIDE RECORDS SUMMARY | ~2019-09-28 | XMS | Encounter Summary ---
Demographics + + + | Address | [address] | | | [place] [address] | + + + | Home Phone [...] [place] | | | | | [address] | | + + + + + Care Team Providers + +------+ + | Care Curriculum Advisory Teacher Name | Role | Phone | [...] + + | 08/22/ | Documentati | [facility] | Katharine Moncada, | Other (urgent | | 2019 | on | CARDIOLOGY [place] | Technologist | report) | | | | [address] | | | | | | [place] | | | | | | [address] | | | | | | [phone] | | | +--------+ + + + [...] [place] | | | | | | [address] | | | | | | | | +--------+---------+ + + + documented as of this encounter Visit Diagnoses Not on filedocumented in this encounter"
--- OUTSIDE RECORDS SUMMARY | ~2019-09-28 | XMS | Encounter Summary ---
Demographics + + + | Address | [address] | | | [place] [address] | + + + | Home Phone [...] [place], [place] | | | | | [address] | | + + + + + Care Team Providers + +------+ + | Care Manager Online Name | Role | Phone | + [...] | | | | 1997 | | [place] [address] | | | | | | [phone] | | | +--------+ + + + [...]
--- OUTSIDE RECORDS SUMMARY | ~2019-09-28 | XMS | Encounter Summary ---
Demographics + + + | Address | [address] | | | [place] [address] | + + + | Home Phone [...] [place] | | | | | [address] | | + + + + + Care Team Providers + +------+ + | Care Correctional Nurse Name | Role | Phone | [...] [place] | | | | | | [address] | | | | | | [phone] | | | +--------+ + + + [...] [place] | | | | | | [address] | | | | | | | | +--------+---------+ + + + documented as of this encounter Visit Diagnoses Not on filedocumented in this encounter"
--- OUTSIDE RECORDS SUMMARY | ~2019-09-28 | XMS | Encounter Summary ---
Demographics + + + | Address | [address] | | | [place] [address] | + + + | Home Phone [...] [place] | | | | | [address] | | + + + + + Care Team Providers + +------+ + | Care Street Sweeper Operator Name | Role | Phone | + +------+ + PCP | Unavailable | + +------+ + Encounter Details +--------+ + + + + | Date | Type | Department | Care Team | Description | +--------+ + + + + | 07/03/ | Office | General Internal | Note, Outpatient | Progress Note | | 1996 | Visit-Trans | Medicine [address] | Clinic | | | | isabelle | [address] | | | | | | Mailcode: L475 | | | | | | Outpatient Clinic | | | | | | [address] | | | | | | [place], [place] | | | | | | [address] | | | | | | [phone] | | | +--------+ + + + [...] as of this encounter Progress Notes Interface, Electric Motor Repair Supervisor In - 12/11/2006 5:03 AM [facility] CL[facility] DATE: 07/03/97 INFECTIOUS DISEASE [...]
--- OUTSIDE RECORDS SUMMARY | ~2019-09-28 | XMS | Encounter Summary ---
Demographics + + + | Address | [address] | | | [place] [address] | + + + | Home Phone [...] [place], [place] | | | | | [address] | | + + + + + Care Team Providers + +------+ + | Care Banquet Chef Name | Role | Phone | + +------+ + PCP | Unavailable | + +------+ + Encounter Details +--------+ + + + + | Date | Type | Department | Care Team | Description | +--------+ + + + + | 01/25/ | Hospital | [facility] | | | | 2002 | Encounter | MED CTR XRAY [address] | | | | | | [place] | | | | | | [place] [address] | | | | | | [phone] | | | +--------+ + + + [...] | | | | | [place] | | | | | | [address] | | | | | | | | +--------+---------+ + + + documented as of this encounter Visit Diagnoses Not on filedocumented in this encounter"
--- OUTSIDE RECORDS SUMMARY | ~2019-09-28 | XMS | Encounter Summary ---
Demographics + + + | Address | [address] | | | [place] [address] | + + + | Home Phone [...] [place] | | | | | [address] | | + + + + + Care Team Providers + +------+ + | Care Trucking Supervisor Name | Role | Phone | [...] + + | 03/26/ | Telephone | [facility] | Thierry Fry | Medication Prior | | 2015 | | MEDICINE [facility] Daniel | MD Lisa [address] | Authorization | | | | [facility] | [facility] [place] | (Dexilant 60Mg) | | | | [place] [address] | [address] | | | | | [phone] | | | +--------+ + + + [...] [place] | | | | | | [address] | | | | | | | | +--------+---------+ + + + documented as of this encounter Visit Diagnoses Not on filedocumented in this encounter"
--- OUTSIDE RECORDS SUMMARY | ~2019-09-28 | XMS | Encounter Summary ---
Demographics + + + | Address | [address] | | | [place] [address] | + + + | Home Phone [...] [place] | | | | | [address] | | + + + + + Care Team Providers + +------+ + | Care Brick Carrier Name | Role | Phone | [...] + + | 08/15/ | Documentati | [facility] | Katharine Moncada, | Other (urgent | | 2019 | on | CARDIOLOGY [place] | Technologist | report) | | | | [address] | | | | | | [place] | | | | | | [address] | | | | | | [phone] | | | +--------+ + + + [...] [place] | | | | | | [address] | | | | | | | | +--------+---------+ + + + documented as of this encounter Visit Diagnoses Not on filedocumented in this encounter"
--- OUTSIDE RECORDS SUMMARY | ~2019-09-28 | XMS | Encounter Summary ---
Demographics + + + | Address | [address] | | | [place] [address] | + + + | Home Phone [...] [place], [place] | | | | | [address] | | + + + + + Care Team Providers + +------+ + | Care Ehs Engineer Name | Role | Phone | + +------+ + PCP | Unavailable | + +------+ + Encounter Details +--------+ + + + + | Date | Type | Department | Care Team | Description | +--------+ + + + + | 12/06/ | Hospital | [facility] | | | | 1994 | Encounter | MED CTR LABORATORY | | | | | | [address] | | | | | | [place] | | | | | | [address] | | | | | | [phone] | | | +--------+ + + + [...] | | | | | [place] | | | | | | [address] | | | | | | | | +--------+---------+ + + + documented as of this encounter Visit Diagnoses Not on filedocumented in this encounter"
--- OUTSIDE RECORDS SUMMARY | ~2019-09-28 | XMS | Encounter Summary ---
Demographics + + + | Address | [address] | | | [place] [address] | + + + | Home Phone [...] [place] | | | | | [address] | | + + + + + Care Team Providers + +------+ + | Care Aerophysicist Name | Role | Phone | + +------+ + | Adriano Patrick MD | PCP | | + +------+ + Encounter Details +--------+ + + + + | Date | Type | Department | Care Team | Description | +--------+ + + + + | 06/12/ | Hospital | [facility] | Frandy Teresa, | No Show | | 2014 | Encounter | MED CTR | DO [address] | | | | | ELECTRODIAGNOSTICS | [place] [address] [place], [place] | | | | | [address] [place] | [address] | | | | | [place] [address] | | | | | | [phone] | | | +--------+ + + + [...] [place] | | | | | | [address] | | | | | | | | +--------+---------+ + + + documented as of this encounter Visit Diagnoses Not on filedocumented in this encounter"
--- OUTSIDE RECORDS SUMMARY | ~2019-09-28 | XMS | Encounter Summary ---
Demographics + + + | Address | [address] | | | [place] [address] | + + + | Home Phone [...] [place] | | | | | [address] | | + + + + + Care Team Providers + +------+ + | Care Flight Hostess Name | Role | Phone | [...] | | [address] | MD [address] | | | | | [place], [place] | [place]heen [place]ons | | | | | [address] | [place] [address] | | | | | [phone] | [phone] | | | | | | | [...] [place] | | | | | | [address] | | | | | | | [...] GIVEN Testing | | | performed at [facility];[address] [place] [id number] CULTURE | | | 50,000 TO 100,000 CFU/ML | | | MIXED GRAM POSITIVE HAIDER NO SUSCEPTIBILITY TO FOLLOW | | | MULTIPLE ORGANISM TYPES PRESENT, | | | SUGGESTIVE OF CONTAMINATION OR COLONIZATION. SUGGEST RECOLLECTION FOR | | | CULTURE. Testing | | | performed at [facility];[address] [place] [address];[place] [address] REPORT | | | STATUS 06/08/2012 FINAL [...]
--- OUTSIDE RECORDS SUMMARY | ~2019-09-28 | XMS | Encounter Summary ---
Demographics + + + | Address | [address] | | | [place] [address] | + + + | Home Phone [...] [place] | | | | | [address] | | + + + + + [...] + + | 08/20/ | Documentati | [facility] | Katharine Moncada, | Other (urgent | | 2019 | on | CARDIOLOGY [place] | Technologist | report) | | | | [address] | | | | | | [place] | | | | | | [address] | | | | | | [phone] | | | +--------+ + + + [...] [place] | | | | | | [address] | | | | | | | | +--------+---------+ + + + documented as of this encounter Visit Diagnoses Not on filedocumented in this encounter"
--- OUTSIDE RECORDS SUMMARY | ~2019-09-28 | XMS | Encounter Summary ---
Demographics + + + | Address | [address] | | | [place] [address] | + + + | Home Phone [...] [place] | | | | | [address] | | + + + + + Care Team Providers + +------+ + | Care Calender Roll Operator Name | Role | Phone | [...] + + | 03/04/ | Telephone | [facility] | Baudilio Newman | Other (Plavix) | | 2014 | | NEUROLOGY [place]UR[place] | MD Pollo Need updated | | | | | [address], | address | | | | | [address] [place] | | | | | | [place] [address] | | | | | | [phone] | | | +--------+ + + + [...] [place] | | | | | | [address] | | | | | | | | +--------+---------+ + + + documented as of this encounter Visit Diagnoses Not on filedocumented in this encounter"
--- OUTSIDE RECORDS SUMMARY | ~2019-09-28 | XMS | Encounter Summary ---
Demographics + + + | Address | [address] | | | [place] [address] | + + + | Home Phone [...] [place] | | | | | [address] | | + + + + + Care Team Providers + +------+ + | Care Food Preparation Supervisor Name | Role | Phone [...] + | 08/26/ | Refill | [facility] | Frandy Teresa, | Medication Refill | | 2013 | | NEUROSURGERY [address] | DO [address] | | | | | [address] | [address] [place], [place] | | | | | [place], [place] | [address] | | | | | [address] | | | | | | [phone] | | | +--------+--------+ + + + [...] | | | | | [place] | | | | | | [address] | | | | | | | | +--------+---------+ + + + documented as of this encounter Visit Diagnoses Not on filedocumented in this encounter"
--- OUTSIDE RECORDS SUMMARY | ~2019-09-28 | XMS | Encounter Summary ---
Demographics + + + | Address | [address] | | | [place] [address] | + + + | Home Phone [...] [place], [place] | | | | | [address] | | + + + + + Care Team Providers + +------+ + | Care Homeland Security Program Specialist [...] | | | | | [place] [address] | | | | | | [phone] | | | +--------+ + + + [...] | | | | | [place] | | | | | | [address] | | | | | | | | +--------+---------+ + + + documented as of this encounter Visit Diagnoses Not on filedocumented in this encounter"
--- OUTSIDE RECORDS SUMMARY | ~2019-09-28 | XMS | Encounter Summary ---
Demographics + + + | Address | [address] | | | [place] [address] | + + + | Home Phone [...] [place] | | | | | [address] | | + + + + + Care Team Providers + +------+ + | Care Pressing Machine Operator Name | Role | Phone [...] | 2019 | | CARDIOLOGY [place] Abad, Iron Worker Apprentice | mariela ) | | | | [address] | | | | | | [place], [place] | | | | | | [address] | | | | | | [phone] | | | +--------+ + + + [...] [place] | | | | | | [address] | | | | | | | | +--------+---------+ + + + documented as of this encounter Visit Diagnoses Not on filedocumented in this encounter"
--- OUTSIDE RECORDS SUMMARY | ~2019-09-28 | XMS | Encounter Summary ---
Demographics + + + | Address | [address] | | | [place] [address] | + + + | Home Phone [...] [place] | | | | | [address] | | + + + + + Care Team Providers + +------+ + | Care Echocardiograph Technician Name | Role | Phone | [...] [place] | | | | | | [address] | | | | | | [phone] | | | +--------+ + + + [...] [place] | | | | | | [address] | | | | | | | | +--------+---------+ + + + documented as of this encounter Visit Diagnoses Not on filedocumented in this encounter"
--- OUTSIDE RECORDS SUMMARY | ~2019-09-28 | XMS | Encounter Summary ---
Demographics + + + | Address | [address] | | | [place] [address] | + + + | Home Phone [...] [place] | | | | | [address] | | + + + + + Care Team Providers + +------+ + | Care Vertica Architect Name | Role | Phone | [...] + | 08/16/ | Telephone | [facility] | Ashley Chávez | Other (Called to | | 2018 | | CARDIOLOGY [place] | Pollo, Appliance Repair Technician | tell patient what | | | | [address] | | Nicholas said. ) | | | | [address] | | | | | | [place] | | | | | | [address] | | | | | | [phone] | | | +--------+ + + + [...] [place] | | | | | | [address] | | | | | | | | +--------+---------+ + + + documented as of this encounter Visit Diagnoses Not on filedocumented in this encounter"
--- OUTSIDE RECORDS SUMMARY | ~2019-09-28 | XMS | Encounter Summary ---
Demographics + + + | Address | [address] | | | [place] [address] | + + + | Home Phone [...] [place], [place] | | | | | [address] | | + + + + + Care Team Providers + +------+ + | Care Row Boss Name | Role | Phone [...] Location | | | | | | [phone] | | | +--------+ + + + [...] [place] | | | | | | [address] | | | | | | | | +--------+---------+ + + + documented as of this encounter Visit Diagnoses Not on filedocumented in this encounter"
--- OUTSIDE RECORDS SUMMARY | ~2019-09-28 | XMS | Encounter Summary ---
Demographics + + + | Address | [address] | | | [place] [address] | + + + | Home Phone [...] [place] | | | | | [address] | | + + + + + Care Team Providers + +------+ + | Care Electrician Ship Name | Role | Phone | [...] | 02/01/ | Telephone | [facility] | Frandy Teresa, | Imaging Only | | 2019 | | NEUROSURGERY [address] | DO [address] | | | | | [address] | [address] [place], [place] | | | | | [place], [place] | [address] | | | | | [address] | | | | | | [phone] | | | +--------+ + + + [...] [place] | | | | | | [address] | | | | | | | | +--------+---------+ + + + documented as of this encounter Visit Diagnoses Not on filedocumented in this encounter"
--- OUTSIDE RECORDS SUMMARY | ~2019-09-28 | XMS | Encounter Summary ---
Demographics + + + | Address | [address] | | | [place] [address] | + + + | Home Phone [...] [place] | | | | | [address] | | + + + + + Care Team Providers + +------+ + | Care Tank Wagon Driver Name | Role | Phone | + +------+ + | Natalee Andersen NP | PCP | | + +------+ + Encounter Details +--------+ + + + + | Date | Type | Department | Care Team | Description | +--------+ + + + + | 09/27/ | Hospital | [facility] | Frandy Teresa, | Lumbar spondylosis; | | 2013 | Encounter | MED CTR XRAY [address] | DO [address] | S/P lumbar fusion | | | | [place] | [address] [place], [place] | | | | | [place] [address] | [address] | | | | | [phone] | | | +--------+ + + + [...] + + + +---------+ + + | Amber-3 Fatty | Take 1,000 mg by | [...] [place] | | | | | | [address] | | | | | | | [...] + | MISCELLANEOUS LAB | | | [phone] | + +---------+ + + | MISCELANIOUS LAB | | | [phone] | + +---------+ + + documented in this encounter Visit Diagnoses + + | Diagnosis | + + | Lumbar spondylosis Lumbosacral spondylosis without myelopathy | + + | S/P lumbar fusion Arthrodesis status | + + documented in this encounter"
--- OUTSIDE RECORDS SUMMARY | ~2019-09-28 | XMS | Encounter Summary ---
Demographics + + + | Address | [address] | | | [place] [address] | + + + | Home Phone [...] [place] | | | | | [address] | | + + + + + Care Team Providers + +------+ + | Care Wash Operator Name | Role | Phone | [...] + + | 04/30/ | Office | [facility] | Russell Alfaro PA | ROGERS on CPAP (Primary | | 2015 | Visit | SLEEP DISORDER [address] | [address] | Dx) | | | | [address] [place] | [place] | | | | | [place] [address] | [address] | | | | | [phone] | | | +--------+---------+ + + + [...] Insomnia Severity Index Insomnia Severity Index 13 [place] Sleepiness Scale Sitting and reading 3 Watching [...] nasal obtained from: [facility] pressure: 11-20 cm Median: 12.1 cm 95%: [...] appro priate paperwork. Thirty minutes were spent gtuk-yh-ueib, with the majority of time spent i [...] | | | | | [place], [place] | | | | | | [address] | | | | | | | | +--------+---------+ + + + documented as of this encounter Visit Diagnoses + + | Diagnosis | + + | ROGERS on CPAP - Primary Obstructive sleep apnea (adult) (pediatric) | + + documented in this encounter"
--- OUTSIDE RECORDS SUMMARY | ~2019-09-28 | XMS | Encounter Summary ---
Demographics + + + | Address | [address] | | | [place] [address] | + + + | Home Phone [...] + | Araceli Sibley | ECON | [place], [place] | | | | | [address] | | + + + + + Care Team Providers + +------+ + | Care Vaccine Manager Name | Role | Phone | + +------+ + PCP | Unavailable | + +------+ + Encounter Details +--------+ + + + + | Date | Type | Department | Care Team | Description | +--------+ + + + + | 12/06/ | Hospital | [facility] | | | | 1994 | Encounter | MED CTR LABORATORY | | | | | | [address] | | | | | | [place] | | | | | | [address] | | | | | | [phone] | | | +--------+ + + + [...] | | | | | [place] | | | | | | [address] | | | | | | | | +--------+---------+ + + + documented as of this encounter Visit Diagnoses Not on filedocumented in this encounter"
--- OUTSIDE RECORDS SUMMARY | ~2019-09-28 | XMS | Encounter Summary ---
Demographics + + + | Address | [address] | | | [place] [address] | + + + | Home Phone [...] [place] | | | | | [address] | | + + + + + Care Team Providers + +------+ + | Care Masticator Name | Role | Phone | + [...] + + | 09/19/ | Telephone | [facility] | Ashley Chávez | Talia (Patient | | 2019 | | CARDIOLOGY [place] Abad, Presentation Specialist | calling to be seen | | | | [address] | | ) | | | | [place] | | | | | | [address] | | | | | | [phone] | | | +--------+ + + + [...] [place] | | | | | | [address] | | | | | | | | +--------+---------+ + + + documented as of this encounter Visit Diagnoses Not on filedocumented in this encounter"
--- OUTSIDE RECORDS SUMMARY | ~2019-09-28 | XMS | Encounter Summary ---
Demographics + + + | Address | [address] | | | [place] [address] | + + + | Home Phone [...] [place], [place] | | | | | [address] | | + + + + + Care Team Providers + +------+ + | Care Database Marketing Specialist Name | Role | Phone | + +------+ + PCP | Unavailable | + +------+ + Encounter Details +--------+ + + + + | Date | Type | Department | Care Team | Description | +--------+ + + + + | 06/30/ | Hospital | [facility] | | | | 2000 | Encounter | MED CTR EMERGENCY | | | | | | [address] | | | | | | [place] | | | | | | [address] | | | | | | [phone] | | | +--------+ + + + [...] | | | | | [place] | | | | | | [address] | | | | | | | | +--------+---------+ + + + documented as of this encounter Visit Diagnoses Not on filedocumented in this encounter"
--- OUTSIDE RECORDS SUMMARY | ~2019-09-28 | XMS | Encounter Summary ---
Demographics + + + | Address | [address] | | | [place] [address] | + + + | Home Phone [...] [place], [place] | | | | | [address] | | + + + + + Care Team Providers + +------+ + | Care L Tacker Name | Role | Phone | + +------+ + PCP | Unavailable | + +------+ + Encounter Details +--------+ + + + + | Date | Type | Department | Care Team | Description | +--------+ + + + + | 06/19/ | Hospital | [facility] | | | | 1991 - | Encounter | MED CTR GENERIC PSY | | | | | | CONV DEPT [address] | | | | 06/24/ | | [address], | | | | 1991 | | [place] [address] | | | | | | [phone] | | | +--------+ + + + [...] [place] | | | | | | [address] | | | | | | | | +--------+---------+ + + + documented as of this encounter Visit Diagnoses Not on filedocumented in this encounter"
--- OUTSIDE RECORDS SUMMARY | ~2019-09-28 | XMS | Encounter Summary ---
Demographics + + + | Address | [address] | | | [place] [address] | + + + | Home Phone [...] [place] | | | | | [address] | | + + + + + Care Team Providers + +------+ + | Care Skiving Machine Operator Name | Role | Phone [...] | | | | fusion | [place] | | | | | | | [address] | | | | | | | Phone: | | | | | | | [phone] | | | | | | | Fax: | | | | | | | [phone] | | +--------+ + + + + [...] [address] | [address] [place], [place] | lumbar fusion | | | | [place], [place] | [address] | | | | | [address] | | | | | | [phone] | | | +--------+---------+ + + + [...] Teresa DO [address], [address] [place] [address] FAX: NEUROSURGERY FOLLOW-UP CHIEF COMPLAINT: Chief Complaint [...] Surgeon: Frandy castellanos DO; Location: [facility] MAIN OR CURRENT MEDICATIONS: Current Outpatient Prescriptions [...] Take 15 mg by mouth nightl y. Whigham-3 Fatty Acids (FISH OIL CONCENTRATE) 1000 MG [...] | | | | | [place], [place] | | | | | | [address] | | | | | | | [...]
--- OUTSIDE RECORDS SUMMARY | ~2019-09-28 | XMS | Encounter Summary ---
Demographics + + + | Address | [address] | | | [place] [address] | + + + | Home Phone [...] [place] | | | | | [address] | | + + + + + Care Team Providers + +------+ + | Care Senior Sales Operations Manager Name | Role | Phone [...] + | 06/12/ | Office | [facility] | Chris Nicole, | Spondylisthesis | | 2013 | Visit | NEUROSURGERY [address] | PA-C [address] | (Primary Dx); | | | | [address] | [place], [place] | Radiculopathy of | | | | [place], [place] | [address] | leg; Lumbar spine | | | | [address] | | instability; Lumbar | | | | [phone] | | spondylosis; | | | | [...] rom the original. ZANE Castillo [address] [facility] [place] [address] FAX: NEUROSURGERY HISTORY AND PHYSICAL [...] 15 mg by mouth nightl y. [place]-3 Fatty Acids (FISH OIL CONCENTRATE) 1000 MG [...] Intrinsics 5 5 Ulnar Intrinsics 5 5 Sales Service Representative Strength 5 5 Hip Flexion 5 [...] [place] | | | | | | [address] | | | | | | | [...]
--- OUTSIDE RECORDS SUMMARY | ~2019-09-28 | XMS | Encounter Summary ---
Demographics + + + | Address | [address] | | | [place] [address] | + + + | Home Phone [...] [place] | | | | | [address] | | + + + + + Care Team Providers + +------+ + | Care Banana Carrier Name | Role | Phone | + +------+ + | Natalee Andersen NP | PCP | | + +------+ + Encounter Details +--------+---------+ + + + | Date | Type | Department | Care Team | Description | +--------+---------+ + + + | 06/25/ | Surgery | [facility] | Frandy Teresa, | Canceled | | 2013 | | MED CTR OR INTRA OP | DO [address] | PROCEDURE NOT | | | | [address] | [address] [place], [place] | PERFORMED | | | | [place], [place] | [address] | | | | | [address] | | | | | | [phone] | | | +--------+---------+ + + + [...] + + + +---------+ + + | [place]-3 Fatty | Take 1,000 mg by | [...] | | | | | [place], [place] | | | | | | [id number] | | | | | | | [...] mL/min/1.73m2 | [facility] | | | [facility] | RATE,ESTIMATED | | MEDICAL | | | | mL/min/[id number] than | | CENTER - | | [...] + | [facility] | [address] | [place] | [phone] | | [facility] | | [address] | | | - LABORATORY | | | | + + + + + | [facility] | [address] | [place] | | | [facility] | | [address] | | | - LABORATORY | | [...] | | | | | | [facility] | | [...] + | [facility] | [address] | [place] | [phone] | | [facility] | | [address] | | | - LABORATORY | | | | + + + + + | [facility] | [address] | [place] | | | [facility] | | [address] | | | - LABORATORY | | [...] [address] | [place] | [phone] | | [facility] | | [address] | | | - LABORATORY | | | | + + + + + | [facility] | [address] | [place], [place] | | | [facility] | | [address] | | | - LABORATORY | | [...] | | [facility] | | [address] | | | - BLOOD BANK | [...] | + + + + + | [facility] | [address] | [place], [place] | [phone] | | [facility] | | [address] | | | - LABORATORY | | | | + + + + + | [facility] | [address] | [place], [place] | | | [facility] | | [address] | | | - LABORATORY | | [...]
--- OUTSIDE RECORDS SUMMARY | ~2019-09-28 | XMS | Encounter Summary ---
Demographics + + + | Address | [address] | | | [place] [address] | + + + | Home Phone [...] [place] | | | | | [address] | | + + + + + Care Team Providers + +------+ + | Care Bus Cleaner Name | Role | Phone | + +------+ + | Basim Bolanos MD | PCP | | + +------+ + Encounter Details +--------+ + + + + | Date | Type | Department | Care Team | Description | +--------+ + + + + | 03/01/ | Abstract | [facility] [place] | [facility], | | | 2012 | | GASTROENTEROLOGY | FORTUNATO Thomas [address] | | | | | [address] [place] | [place], [address] | | | | | [address] [place], [place] | [place], [place] | | | | | [address] | [address] | | | | | [phone] | | | +--------+ + + + [...] [place] | | | | | | [address] | | | | | | | | +--------+---------+ + + + documented as of this encounter Visit Diagnoses Not on filedocumented in this encounter"
--- OUTSIDE RECORDS SUMMARY | ~2019-09-28 | XMS | Encounter Summary ---
Demographics + + + | Address | [address] | | | [place] [address] | + + + | Home Phone [...] [place] | | | | | [address] | | + + + + + Care Team Providers + +------+ + | Care Feedlot Manager Name | Role | Phone | [...] [address] | [address] [place], [place] | | | | | [place], [place] | [id number] | | | | | [address] | | | | | | [phone] | | | +--------+ + + + [...] | | | | | [place] | | | | | | [address] | | | | | | | | +--------+---------+ + + + documented as of this encounter Visit Diagnoses Not on filedocumented in this encounter"
--- OUTSIDE RECORDS SUMMARY | ~2019-09-28 | XMS | Encounter Summary ---
Demographics + + + | Address | [address] | | | [place] [address] | + + + | Home Phone [...] [place] | | | | | [address] | | + + + + + Care Team Providers + +------+ + | Care Industrial Controls Technician Name | Role | Phone | [...] + | 08/15/ | Documentati | [facility] | Katharine Moncada, | Other (urgent | | 2019 | on | CARDIOLOGY [place] | Technologist | report) | | | | [address] | | | | | | [place] | | | | | | [address] | | | | | | [phone] | | | +--------+ + + + [...] [place] | | | | | | [address] | | | | | | | | +--------+---------+ + + + documented as of this encounter Visit Diagnoses Not on filedocumented in this encounter"
--- OUTSIDE RECORDS SUMMARY | ~2019-09-28 | XMS | Encounter Summary ---
Demographics + + + | Address | [address] | | | [place] [address] | + + + | Home Phone [...] [place] | | | | | [address] | | + + + + + Care Team Providers + +------+ + | Care Student Driving Instructor Name | Role | Phone | [...] | 2019 | | CARDIOLOGY [place] Abad, [employer] Paralegal | called to cancel her | | | | [address] | | appointment) | | | | [place] | | | | | | [address] | | | | | | [phone] | | | +--------+ + + + [...] [place] | | | | | | [address] | | | | | | | | +--------+---------+ + + + documented as of this encounter Visit Diagnoses Not on filedocumented in this encounter"
--- OUTSIDE RECORDS SUMMARY | ~2019-09-28 | XMS | Encounter Summary ---
Demographics + + + | Address | [address] | | | [place] [address] | + + + | Home Phone [...] [place], [place] | | | | | [address] | | + + + + + Care Team Providers + +------+ + | Care Director Private Music Therapy Agency Name | Role | Phone | + +------+ + PCP | Unavailable | + +------+ + Encounter Details +--------+ + + + + | Date | Type | Department | Care Team | Description | +--------+ + + + + | 06/07/ | Hospital | [facility] | | | | 1991 - | Encounter | MED CTR GENERIC OP | | | | | | CONV DEPT [address] | | | | 10/07/ | | [place], | | | | 1991 | | [place] [address] | | | | | | [phone] | | | +--------+ + + + [...] [place] | | | | | | [address] | | | | | | | | +--------+---------+ + + + documented as of this encounter Visit Diagnoses Not on filedocumented in this encounter"
--- OUTSIDE RECORDS SUMMARY | ~2019-09-28 | XMS | Clinical Summary ---
Demographics + + + | Address | [address] | | | [place] [address] | + + + | Home Phone [...] [place] | | | | | [address] | | + + + + + [...] | | Activ | | (VITAMIN D-3) 19811 | mouth Once a week. | | [...] | | | | e | | (Lulu VERIO FLEX | | | | | [...] | | 2019 | | | D, Design Project Manager | calling to be seen [...] | | 2018 | | | D, Design Project Manager | to take monitor | | | | | | off. ) | +--------+ + + + + | 08/28/ | Telephone | Cardiology | Ashley Chávez | Other (Patient has | | 2018 | | | D, Design Project Manager | questions about | | | [...] to | 2018 | | | D, Design Project Manager | tell patient what | | [...] | | 2018 | | | D, Design Project Manager | anxious about urgent | | [...] | | 2018 | | | Pollo Design Project Manager | about coverage. ) | +--------+ + + + + | 07/30/ | Telephone | Cardiology | Ashley Chávez | Other (Patient | | 2019 | | | D, Design Project Manager | concerns ) | +--------+ + + + + | 07/24/ | Telephone | Cardiology | Ashley Chávez | Other (Patient is | | 2018 | | | D, Design Project Manager | worried about paying | | [...] [place] | | | | | | [address] | | | | | | | [...] | [employer]IC - | | 04/02/ | [id number] | | 5ccImplanted: Qty: 1 on | | Spine | MEDT | | 2019 | | | 07/02/2014 by Frandy Teresa | | Lumbar | | | | /[id number] | | A, DO at [facility] | | | | | | 6-020 | | [facility] | | | | | | / | + +------+--------+ +--------+--------+--------+ | Graft Infuse Bone Kit Xxs - | | N/A: | SOFAMOR | | 01/21/ | [id number] | | [id number]: Qty: 1 on | | Spine | DANEK - DIV | | 2014 | 0 / | | 07/02/2014 by Frandy Teresa | | Lumbar | [employer] | | | /[id number] | | A, DO at [facility] | | | - SFDK | | | 06AAH | | [facility] | | | | | | | + +------+--------+ +--------+--------+--------+ | Imp Spn Spcr Cpstn 8x26mm - | | N/A: | SOFAMOR | | 01/11/ | [id number] | | [id number]: Qty: 1 on | | Spine | DANEK - DIV | | 2 | 6 / | | 07/02/2014 by Frandy Teresa | | Lumbar | [employer] | | | /[id number] | | DO Ronak at [facility] | | | - SFDK | | | 928 | | [facility] | | | | | | | + +------+--------+ +--------+--------+--------+ | Set Scrw Ns G5 Brk Off Ti | | N/A: | SOFAMOR | | | [id number] | | 4.75 - [id number]: | | Spine | DANEK - DIV | | | 0 / / | | Qty: 4 on 07/02/2014 by | | Lumbar | [employer] | | | | | Frandy Teresa DO at [facility] | | | - SFDK | | | | | [facility] | | | | | | | | CENTER | | | | | | | + +------+--------+ +--------+--------+--------+ | RodImplanted: Qty: 1 on | | N/A: | | | | [id number] | | 07/02/2014 by Frandy Teresa | | Spine | | | | 540 / | | DO Ronak at [facility] | | Lumbar | | | | / | | [facility] | | | | | | | + +------+--------+ +--------+--------+--------+ | RodImplanted: Qty: 1 on | | N/A: | MEDTROL - | | | [id number] | | 07/02/2014 by Frandy Teresa | | Spine | MDTR | | | 545 / | | A DO at [facility] | | Lumbar | | | | / | | [facility] | | | | | | | + +------+--------+ +--------+--------+--------+ | Screw 7.5x50mm Sextant - | | N/A: | [employer] - | | | [id number] | | [id number]: Qty: 1 on | | Spine | MEDT | | | [id number] | | 07/02/2014 by Frandy Teresa | | Lumbar | | | | / / | | A DO at [facility] | | | | | | | | [facility] | | | | | | | + +------+--------+ +--------+--------+--------+ | Cannulated ScrewImplanted: | | N/A: | MEDTROL - | | | [id number] | | Qty: 1 on 07/02/2014 by | | Spine | MDTR | | | [id number] | | Frandy Teresa DO at [facility] | | Lumbar | | | | / / | | [facility] | | | | | | | | CENTER | | | | | | | + +------+--------+ +--------+--------+--------+ | Cannulated ScrewImplanted: | | N/A: | MEDTRONIC - | | | [id number] | | Qty: 1 on 07/02/2014 by | | Spine | MEDT | | | [id number] | | Frandy Teresa DO at [facility] | | Lumbar | | | | / / | | [facility] | | | | | [...] +--------+ +---------+--------+ | MEDICARE | MEDICA | [id number] | 02/22/20 | [phone] | | Medica | | | RE | | 09-Pre | 5 | | re | | | PART A | | sent | | | | | | AND B | | | | | | + +--------+ +--------+ +---------+--------+ | MEDICARE | MEDICA | [id number] | 5/1/20 | [phone] | | Medica [...] | Self | [birth year] | | [address] | | | al/Fam | | [address] | [phone] | [address] [place], [place] | | | [place] | | | 8 (Home) | [address] | + +--------+ +--------+ + + | Cindy Arndt Natali | Person | Self | [birth year] | | [address] | | | al/Fam | | 1955 | [phone] | [address] [place] | | | [place] | | | 8 (Home) | [address] | + +--------+ +--------+ + + Advance Directives + + + + + | Type | Date Recorded | Patient | Explanation | | | | Staff Nurse Midwife | | + + + + + | Power of | | | | | Locomotive Supervisor | | | | + + [...]
--- OUTSIDE RECORDS SUMMARY | ~2019-09-28 | XMS | Encounter Summary ---
Demographics + + + | Address | [address] | | | [place] [address] | + + + | Home Phone [...] [place], [place] | | | | | [address] | | + + + + + Care Team Providers + +------+ + | Care Entry Level Staff Accountant Name | Role | Phone | + +------+ + PCP | Unavailable | + +------+ + Encounter Details +--------+ + + + + | Date | Type | Department | Care Team | Description | +--------+ + + + + | 09/10/ | Hospital | [facility] | | | | 1992 | Encounter | MED CTR LABORATORY | | | | | | [address] | | | | | | [place] | | | | | | [address] | | | | | | [phone] | | | +--------+ + + + [...] | | | | | [place] | | | | | | [address] | | | | | | | | +--------+---------+ + + + documented as of this encounter Visit Diagnoses Not on filedocumented in this encounter"
--- OUTSIDE RECORDS SUMMARY | ~2019-09-28 | XMS | Encounter Summary ---
Demographics + + + | Address | [address] | | | [place] [address] | + + + | Home Phone [...] [place] | | | | | [address] | | + + + + + Care Team Providers + +------+ + | Care Heel Lift Gouger Name | Role | Phone | + [...] | 11/25/ | Telephone | [facility] | Frandy Teresa, | Medication Refill | | 2015 | | NEUROSURGERY [address] | DO [address] | Assistance | | | | [address] | [address] [place], [place] | | | | | [place], [place] | [address] | | | | | [address] | | | | | | [phone] | | | +--------+ + + + [...] | | | | | [place] | | | | | | [address] | | | | | | | | +--------+---------+ + + + documented as of this encounter Visit Diagnoses Not on filedocumented in this encounter"
--- OUTSIDE RECORDS SUMMARY | ~2019-09-28 | XMS | Encounter Summary ---
Demographics + + + | Address | [address] [address] | | | [place] [address] | + + + | Home Phone [...] [place] | | | | | [address] | | + + + + + Care Team Providers + +------+ + | Care Margin Clerk Name | Role | Phone | [...] | Transcriptions | + + | Interface, Speed Belt Sander Tender In - 11/04/2006 3:03 AM PST | | [address] | | [place], [place] [address] [facility] | | ClinicsOPERATION RECORDMed Rec No.: [...] skin retractor was put in place. The [place] elevators wereused to separate the | | [...]
--- OUTSIDE RECORDS SUMMARY | ~2019-09-28 | XMS | Encounter Summary ---
Demographics + + + | Address | [address] | | | [place] [address] | + + + | Home Phone [...] [place] | | | | | [address] | | + + + + + Care Team Providers + +------+ + | Care Assistant Food Service Director Name | Role | Phone [...] + + | 09/10/ | Documentati | [facility] | Katharine Moncada, | Other (urgent | | 2019 | on | CARDIOLOGY [place] | Technologist | report) | | | | [address] | | | | | | [place] | | | | | | [address] | | | | | | [phone] | | | +--------+ + + + [...] [place] | | | | | | [address] | | | | | | | | +--------+---------+ + + + documented as of this encounter Visit Diagnoses Not on filedocumented in this encounter"
--- OUTSIDE RECORDS SUMMARY | ~2019-09-28 | XMS | Encounter Summary ---
Demographics + + + | Address | [address] | | | [place] [address] | + + + | Home Phone [...] [place] | | | | | [address] | | + + + + + Care Team Providers + +------+ + | Care Set Designer Name | Role | Phone | [...] | | | spondylolist | | [address] | | | | | hesis | | [place], | | | | | Spinal | | [place] [address] | | | | | stenosis, | | Phone: | | | | | lumbar | | [phone] | | | | | region, | | Fax: | | | | | without | | [phone] | | | | | neurogenic | [...] | | | | | [address] | [address] [place] | | | | | [place] | [phone] | | | | | [address] | | | | | | [phone] | | | +--------+ + + + [...] Easy mask AW. DL times one with [facility] 3 easy view | | | 2 | Intubation | | | | 2 | | | | | 6 | | | +----+---+ + + | | 1 | AN Bite | | | | 2 | Block | | | | 2 | | | | | 7 | | | +----+---+ + + | | 1 | [place] | | | | 2 | 43-degrees | | | | 3 | | | | | 1 | | | +----+---+ + + | | 1 | [place] off | | | | 4 | [...] | | | | | [place], [place] | | | | | | [phone] | | | | | | | [...]
--- OUTSIDE RECORDS SUMMARY | ~2019-09-28 | XMS | Encounter Summary ---
Demographics + + + | Address | [address] | | | [place] [address] | + + + | Home Phone [...] [place], [place] | | | | | [address] | | + + + + + Care Team Providers + +------+ + | Care Assistant In Nursing Name | Role | Phone | + +------+ + PCP | Unavailable | + +------+ + Encounter Details +--------+ + + + + | Date | Type | Department | Care Team | Description | +--------+ + + + + | 01/25/ | Hospital | [facility] | | | | 2002 | Encounter | MED CTR XRAY [address] | | | | | | [address] | | | | | | [place] [address] | | | | | | [phone] | | | +--------+ + + + [...] | | | | | [place] | | | | | | [address] | | | | | | | | +--------+---------+ + + + documented as of this encounter Visit Diagnoses Not on filedocumented in this encounter"
--- OUTSIDE RECORDS SUMMARY | ~2019-09-28 | XMS | Encounter Summary ---
Demographics + + + | Address | [address] | | | [place] [address] | + + + | Home Phone [...] [place] | | | | | [address] | | + + + + + Care Team Providers + +------+ + | Care Technical Cable Jointer Name | Role | Phone | + [...] + + | 08/15/ | Documentati | [facility] | Katharine Moncada, | Other (urgent | | 2019 | on | CARDIOLOGY [place] | Technologist | report) | | | | [address] | | | | | | [place] | | | | | | [address] | | | | | | [phone] | | | +--------+ + + + [...] [place] | | | | | | [address] | | | | | | | | +--------+---------+ + + + documented as of this encounter Visit Diagnoses Not on filedocumented in this encounter"
--- OUTSIDE RECORDS SUMMARY | ~2019-09-28 | XMS | Encounter Summary ---
Demographics + + + | Address | [address] | | | [place] [address] | + + + | Home Phone [...] [place], [place] | | | | | [address] | | + + + + + Care Team Providers + +------+ + | Care Delivery Merchandiser Name | Role | Phone | + +------+ + PCP | Unavailable | + +------+ + Encounter Details +--------+ + + + + | Date | Type | Department | Care Team | Description | +--------+ + + + + | 06/19/ | Hospital | [facility] | | | | 1991 - | Encounter | MED CTR GENERIC PSY | | | | | | CONV DEPT [address] | | | | 06/24/ | | [place], | | | | 1991 | | [place] [address] | | | | | | [phone] | | | +--------+ + + + [...] [place] | | | | | | [address] | | | | | | | | +--------+---------+ + + + documented as of this encounter Visit Diagnoses Not on filedocumented in this encounter"
--- OUTSIDE RECORDS SUMMARY | ~2019-09-28 | XMS | Encounter Summary ---
Demographics + + + | Address | [address] | | | [place] [address] | + + + | Home Phone [...] [place] | | | | | [address] | | + + + + + Care Team Providers + +------+ + | Care Manual Lathe Machinist Name | Role | Phone | + +------+ + | Natalee Andersen NP | PCP | | + +------+ + Encounter Details +--------+ + + + + | Date | Type | Department | Care Team | Description | +--------+ + + + + | 06/25/ | Hospital | [facility] | Latricia Feliciano | | | 2014 | Encounter | MED CTR ACUTE | D, PT [address] | | | | | PHYSICAL THERAPY | [place] | | | | | [address] | [address] | | | | | [place] [address] | | | | | | [phone] | | | +--------+ + + + [...] + + + +---------+ + + | [place]-3 Fatty | Take 1,000 mg by | [...] [place] | | | | | | [address] | | | | | | | | +--------+---------+ + + + documented as of this encounter Visit Diagnoses Not on filedocumented in this encounter"
--- OUTSIDE RECORDS SUMMARY | ~2019-09-28 | XMS | Encounter Summary ---
Demographics + + + | Address | [address] | | | [place] [address] | + + + | Home Phone [...] [place] | | | | | [address] | | + + + + + Care Team Providers + +------+ + | Care Staff Cytotechnologist Name | Role | Phone | + [...] [place] | | | | | | [address] | | | | | | [phone] | | | +--------+ + + + [...] [place] | | | | | | [address] | | | | | | | | +--------+---------+ + + + documented as of this encounter Visit Diagnoses Not on filedocumented in this encounter"
--- OUTSIDE RECORDS SUMMARY | ~2019-09-28 | XMS | Encounter Summary ---
Demographics + + + | Address | [address] | | | [place] [address] | + + + | Home Phone [...] [place] | | | | | [address] | | + + + + + Care Team Providers + +------+ + | Care Unix Developer Name | Role | Phone | [...] + | 02/27/ | Telephone | [facility] | Katharine Cardona PA-C | Appointment (New | | 2014 | | MEDICINE [address] | [address] | Patient) | | | | [address] [place] | [place] [address] | | | | | [place] [address] | [phone] | | | | | [phone] | | | +--------+ + + + [...] [place] | | | | | | [address] | | | | | | | | +--------+---------+ + + + documented as of this encounter Visit Diagnoses Not on filedocumented in this encounter"
--- OUTSIDE RECORDS SUMMARY | ~2019-09-28 | XMS | Encounter Summary ---
Demographics + + + | Address | [address] | | | [place] [address] | + + + | Home Phone [...] [place] | | | | | [address] | | + + + + + Care Team Providers + +------+ + | Care Public Accountant Name | Role | Phone | [...] 2019 | | CARDIOLOGY [place] | Pollo, Progressive Care Manager | to take monitor | | | | [address] | | off. ) | | | | [address] | | | | | | [place] | | | | | | [address] | | | | | | [phone] | | | +--------+ + + + [...] [place] | | | | | | [address] | | | | | | | | +--------+---------+ + + + documented as of this encounter Visit Diagnoses Not on filedocumented in this encounter"
--- OUTSIDE RECORDS SUMMARY | ~2019-09-28 | XMS | Encounter Summary ---
Demographics + + + | Address | [address] | | | [place] [address] | + + + | Home Phone [...] [place] | | | | | [address] | | + + + + + Care Team Providers + +------+ + | Care Brand Sales Consultant Name | Role | Phone [...] [address] | [address] [place], [place] | | | | | [place], [place] | [id number] | | | | | [address] | | | | | | [phone] | | | +--------+ + + + [...] | | | | | [address] [place] | | | | | | [address] | | | | | | | | +--------+---------+ + + + documented as of this encounter Visit Diagnoses Not on filedocumented in this encounter"
--- OUTSIDE RECORDS SUMMARY | ~2019-09-28 | XMS | Encounter Summary ---
Demographics + + + | Address | [address] | | | [place] [address] | + + + | Home Phone [...] [place] | | | | | [address] | | + + + + + [...] + + | 07/08/ | Telephone | [facility] | Frandy Teresa, | Other (post op call | | 2013 | | NEUROSURGERY [address] | DO [address] | ) | | | | [address] [address] | [address] [place], [place] | | | | | [place], [place] | [address] | | | | | [address] | | | | | | [phone] | | | +--------+ + + + [...] | | | | | [place] | | | | | | [address] | | | | | | | | +--------+---------+ + + + documented as of this encounter Visit Diagnoses Not on filedocumented in this encounter"
--- OUTSIDE RECORDS SUMMARY | ~2019-09-28 | XMS | Encounter Summary ---
Demographics + + + | Address | [address] | | | [place] [address] | + + + | Home Phone [...] [place] | | | | | [address] | | + + + + + Care Team Providers + +------+ + | Care Chassis Mechanic Name | Role | Phone | [...] [place] | | | | | | [address] | | | | | | [phone] | | | +--------+ + + + [...] [place] | | | | | | [address] | | | | | | | | +--------+---------+ + + + documented as of this encounter Visit Diagnoses Not on filedocumented in this encounter"
--- OUTSIDE RECORDS SUMMARY | ~2019-09-28 | XMS | Encounter Summary ---
Demographics + + + | Address | [address] | | | [place] [address] | + + + | Home Phone [...] [place], [place] | | | | | [address] | | + + + + + Care Team Providers + +------+ + | Care Backend Python Developer Name | Role | Phone | + +------+ + PCP | Unavailable | + +------+ + Encounter Details +--------+ + + + + | Date | Type | Department | Care Team | Description | +--------+ + + + + | 02/22/ | Hospital | [facility] | | | | 1996 | Encounter | MED CTR EMERGENCY | | | | | | [address] | | | | | | [place] | | | | | | [address] | | | | | | [phone] | | | +--------+ + + + [...] | | | | | [place] | | | | | | [address] | | | | | | | | +--------+---------+ + + + documented as of this encounter Visit Diagnoses Not on filedocumented in this encounter"
--- OUTSIDE RECORDS SUMMARY | ~2019-09-28 | XMS | Encounter Summary ---
Demographics + + + | Address | [address] | | | [place] [address] | + + + | Home Phone [...] [place] | | | | | [address] | | + + + + + Care Team Providers + +------+ + | Care Enterostomal Therapy Nurse Name | Role | Phone [...] + | 06/12/ | Office | [facility] | Chris Nicole, | Spondylisthesis | | 2013 | Visit | NEUROSURGERY [address] | PA-C [address] | (Primary Dx); | | | | [address] | [place] | Radiculopathy of | | | | [place], [place] | [address] | leg; Lumbar spine | | | | [address] | | instability; Lumbar | | | | [phone] | | spondylosis; | | | | [...] rom the original. ZANE Castillo [address] [place] [address] FAX: NEUROSURGERY HISTORY AND PHYSICAL [...] Take 15 mg by mouth nightl y. [place]-3 Fatty Acids (FISH OIL CONCENTRATE) 1000 MG [...] has no apparent deficits with short or retirement memory. CRANIAL NERVES: II: Acuity is intact. [...] Intrinsics 5 5 Ulnar Intrinsics 5 5 Software Development Intern Strength 5 5 Hip Flexion 5 4* [...] [place] | | | | | | [address] | | | | | | | [...]
--- OUTSIDE RECORDS SUMMARY | ~2019-09-28 | XMS | Encounter Summary ---
Demographics + + + | Address | [address] | | | [place] [address] | + + + | Home Phone [...] [place] | | | | | [address] | | + + + + + Care Team Providers + +------+ + | Care Processes Chemical Design Engineer Name | Role | Phone | + +------+ + | Natalee Andersen NP | PCP | | + +------+ + Encounter Details +--------+ + + + + | Date | Type | Department | Care Team | Description | +--------+ + + + + | 07/06/ | Hospital | [facility] | Latricia Feliciano | | | 2014 | Encounter | MED CTR ACUTE | D, PT [address] | | | | | PHYSICAL THERAPY | NEFTALIE [place] | | | | | [address] | [address] | | | | | [place] [address] | | | | | | [phone] | | | +--------+ + + + [...] + + + +---------+ + + | [place]-3 Fatty | Take 1,000 mg by [...] | | | | [place] | | | | | | [address] | | | | | | | | +--------+---------+ + + + documented as of this encounter Visit Diagnoses Not on filedocumented in this encounter"
--- OUTSIDE RECORDS SUMMARY | ~2019-09-28 | XMS | Encounter Summary ---
Demographics + + + | Address | [address] | | | [place] [address] | + + + | Home Phone [...] [place], [place] | | | | | [address] | | + + + + + Care Team Providers + +------+ + | Care Welder Production Line Combination Name | Role | Phone | + +------+ + PCP | Unavailable | + +------+ + Encounter Details +--------+ + + + + | Date | Type | Department | Care Team | Description | +--------+ + + + + | 02/22/ | Hospital | [facility] | | | | 1996 - | Encounter | MED CTR GENERIC PSY | | | | | | CONV DEPT [address] | | | | 02/26/ | | [place], | | | | 1996 | | [place] [address] | | | | | | [phone] | | | +--------+ + + + [...] [place] | | | | | | [address] | | | | | | | | +--------+---------+ + + + documented as of this encounter Visit Diagnoses Not on filedocumented in this encounter"
--- OUTSIDE RECORDS SUMMARY | ~2019-09-28 | XMS | Encounter Summary ---
Demographics + + + | Address | [address] | | | [place] [address] | + + + | Home Phone [...] [place], [place] | | | | | [address] | | + + + + + Care Team Providers + +------+ + | Care Box Nailer Name | Role | Phone | + +------+ + PCP | Unavailable | + +------+ + Encounter Details +--------+ + + + + | Date | Type | Department | Care Team | Description | +--------+ + + + + | 12/09/ | Hospital | [facility] | Serafin Bautista | | | 2012 | Encounter | MED CTR XRAY [address] | T, MD [address] | | | | | [place] | ST [place], [place] | | | | | [place] [address] | [address] | | | | | [phone] | | | +--------+ + + + [...] [place] | | | | | | [address] | | | | | | | [...] At | + + + | [facility] Diagnostic Imaging Department | [facility] | | [address] [facility] | [facility] | | PROCEDURE NOTE EPIDURAL | [...] Manohar Martinez Conversion - 11/30/2013 4:45 PM [facility] | | Diagnostic Imaging Department | | [address] [facility] | | | | | | [...] [place] | | | | | [facility] | | | | + +---------+ + + documented in this encounter Visit Diagnoses Not on filedocumented in this encounter"
--- OUTSIDE RECORDS SUMMARY | ~2019-09-28 | XMS | Encounter Summary ---
Demographics + + + | Address | [address] | | | [place] [address] | + + + | Home Phone [...] [place] | | | | | [address] | | + + + + + Care Team Providers + +------+ + | Care Dairy Science Teacher Name | Role | Phone [...] [place] | | | | | | [address] | | | | | | [phone] | | | +--------+ + + + [...] [place] | | | | | | [address] | | | | | | | | +--------+---------+ + + + documented as of this encounter Visit Diagnoses Not on filedocumented in this encounter"
--- OUTSIDE RECORDS SUMMARY | ~2019-09-28 | XMS | Encounter Summary ---
Demographics + + + | Address | [address] | | | [place] [address] | + + + | Home Phone [...] [place] | | | | | [address] | | + + + + + Care Team Providers + +------+ + | Care Certified Medication Technician Name | Role | Phone | [...] + + | 08/21/ | Documentati | [facility] | Katharine Moncada, | Other (urgent | | 2019 | on | CARDIOLOGY [place] | Technologist | report) | | | | [address] | | | | | | [place] | | | | | | [address] | | | | | | [phone] | | | +--------+ + + + [...] [place] | | | | | | [address] | | | | | | | | +--------+---------+ + + + documented as of this encounter Visit Diagnoses Not on filedocumented in this encounter"
--- OUTSIDE RECORDS SUMMARY | ~2019-09-28 | XMS | Encounter Summary ---
Demographics + + + | Address | [address] | | | [place] [address] | + + + | Home Phone [...] [place] | | | | | [address] | | + + + + + Care Team Providers + +------+ + | Care Last Putter Away Name | Role | Phone | + [...] | | | | | | [place] | | | | | | [place] [address] | | | | | | [phone] | | | +--------+ + + + [...]
--- OUTSIDE RECORDS SUMMARY | ~2019-09-28 | XMS | Encounter Summary ---
Demographics + + + | Address | [address] | | | [place] [address] | + + + | Home Phone [...] [place] | | | | | [address] | | + + + + + Care Team Providers + +------+ + | Care Prn Occupational Therapist Name | Role | Phone | [...] + + | 07/06/ | Emergency | [facility] | Yunior [place], | Chest pain, | | 2014 | | MED CTR EMERGENCY | MD [address] | unspecified chest | | | | CENTER [address] | [place], [place] | pain type (Primary | | | | [place], [place] | [address] | Dx) | | | | [address] | | | | | | [phone] | | | +--------+ + + + [...] sent through Care Everywhere.CHEST PAIN, NON CARDIAC ([place])documented in this encounter Medications at Time of [...] 0 | | | | (VITAMIN D-3) [address] | mouth Once a week. | | [...] [place] | | | | | | [address] | | | | | | | [...] [address] | [place] | [phone] | | [facility] | | [address] | | | - LABORATORY | | [...] [address] | [place] | [phone] | | [facility] | | [address] | | | - LABORATORY | | [...] | | | | | | [employer] | | | | | [...] + + | Performing | Address | City/State[facility] | Phone Number | | Organization | | | | + + + + + | [facility] | [address] | [place] | [phone] | | [facility] | | [address] | | | - LABORATORY | | [...] mL/min/1.73m2 | [facility] | | | SPANISH | RATE,ESTIMATED | | MEDICAL | | | | mL/min/1.50x4Dpcc than | | CENTER - | | [...] [address] | [place] | [phone] | | [facility] | | [address] | | | - LABORATORY | | [...] [address] | [place] | [phone] | | [facility] | | [address] | | | - LABORATORY | | [...] | | | | MD NAZARIO JON ([id number]) | | | | | | on [...]
--- OUTSIDE RECORDS SUMMARY | ~2019-09-28 | XMS | Encounter Summary ---
Demographics + + + | Address | [address] | | | [place] [address] | + + + | Home Phone [...] [place], [place] | | | | | [address] | | + + + + + Care Team Providers + +------+ + | Care Paste Up Copy Camera Operator Name | Role | Phone [...] [place] | | | | | | [address] | | | | | | [phone] | | | +--------+ + + + [...] | | | | | [place] | | | | | | [address] | | | | | | | | +--------+---------+ + + + documented as of this encounter Visit Diagnoses Not on filedocumented in this encounter"
--- OUTSIDE RECORDS SUMMARY | ~2019-09-28 | XMS | Encounter Summary ---
Demographics + + + | Address | [address] | | | [place] [address] | + + + | Home Phone [...] [place] | | | | | [address] | | + + + + + Care Team Providers + +------+ + | Care Vegetable Preparer Name | Role | Phone | + +------+ + | Natalee Andersen NP | PCP | | + +------+ + Encounter Details +--------+ + + + + | Date | Type | Department | Care Team | Description | +--------+ + + + + | 05/02/ | Hospital | [facility] | Frandy Teresa, | Back pain | | 2014 | Encounter | MED CTR XRAY [address] | DO [address] | | | | | [place] | [place] [address] [place] | | | | | [place] [address] | [address] | | | | | [phone] | | | +--------+ + + + [...] + + + +---------+ + + | [place]-3 Fatty | Take 1,000 mg by | [...] | | | | | [place] | | | | | | [address] | | | | | | | [...] + | MISCELLANEOUS LAB | | | [phone] | + +---------+ + + | MISCELANIOUS LAB | | | [phone] | + +---------+ + + documented in this encounter Visit Diagnoses + + | Diagnosis | + + | Back pain Backache, unspecified | + + documented in this encounter"
--- OUTSIDE RECORDS SUMMARY | ~2019-09-28 | XMS | Encounter Summary ---
Demographics + + + | Address | [address] | | | [place] [address] | + + + | Home Phone [...] [place], [place] | | | | | [address] | | + + + + + Care Team Providers + +------+ + | Care Steward/Stewardess Second Class Name | Role | Phone | + +------+ + PCP | Unavailable | + +------+ + Encounter Details +--------+ + + + + | Date | Type | Department | Care Team | Description | +--------+ + + + + | 03/11/ | [facility] | [facility] | Deon Gonzales | | | 2005 | Encounter | MED CTR SLEEP | MD [place] | | | | | [place] [address] | [place] | | | | | [place], [place] | [place] [address] | | | | | [address] | [phone] | | | | | [phone] | | | +--------+ + + + [...] [place] | | | | | | [address] | | | | | | | | +--------+---------+ + + + documented as of this encounter Visit Diagnoses Not on filedocumented in this encounter"
--- OUTSIDE RECORDS SUMMARY | ~2019-09-28 | XMS | Encounter Summary ---
Demographics + + + | Address | [address] | | | [place] [address] | + + + | Home Phone [...] [place] | | | | | [address] | | + + + + + Care Team Providers + +------+ + | Care Supervisor Melt House Name | Role | Phone | + +------+ + | Thierry Fry MD | PCP | | + +------+ + Encounter Details +--------+ + + + + | Date | Type | Department | Care Team | Description | +--------+ + + + + | 03/06/ | Hospital | [facility] | Katharine Cardona PA-C | Essential | | 2015 | Encounter | MED CTR LABORATORY | [address] | hypertension | | | | [address] [place] | [place] [address] | | | | | [place], [place] | [phone] | | | | | [address] | | | | | | [phone] | | | +--------+ + + + [...] 0 | | | | (VITAMIN D-3) [address] | mouth Once a week. | | [...] + + + +---------+ + + | [place]-3 Fatty | Take 1,000 mg by | 60 each | 5 | 03/09/20 | | | Acids (FISH OIL | mouth 2 times daily. | | | 15 | 9 | | CONCENTRATE) 1000 MG | | | | | | | CAPS | | | | | | + + + +---------+ + + | [place]-3 Fatty | Take 1,000 mg by [...] | | | | | [place] | | | | | | [address] | | | | | | | [...] mL/min/1.73m2 | [facility] | | | [place] | RATE,ESTIMATED | | MEDICAL | | | | mL/min/1.29q8Tlms than | | CENTER - | | [...] 9.6 | 8.3 - 10.5 | [facility] | | | | | mg/dL | [...] [address] | [place] | [phone] | | [facility] | | [address] | | | - LABORATORY | | | | + + + + + documented in this encounter Visit Diagnoses + + | Diagnosis | + + | Essential hypertension Unspecified essential hypertension | + + documented in this encounter"
--- OUTSIDE RECORDS SUMMARY | ~2019-09-28 | XMS | Encounter Summary ---
Demographics + + + | Address | [address] | | | [place] [address] | + + + | Home Phone [...] [place] | | | | | [address] | | + + + + + Care Team Providers + +------+ + | Care Union Carpenter Name | Role | Phone | + [...] | | | | | mellitus, | [address] | [place] | | | | | controlled | Phone: | [address] | | | | | (HCC) | [phone] | Phone: | | | | | History of | Fax: | [phone] | | | | | gastric | [phone] | Fax: | | | | | restrictive | | [phone] | | | | | surgery | [...] | | | y Type 2 | [address] | [place] | | | | | diabetes | Phone: | [address] | | | | | mellitus, | [phone] | Phone: | | | | | controlled | Fax: | [phone] | | | | | (HCC) | [phone] | Fax: | | | | | Obesity, | | [phone] | | | | | Class III, [...] | | FOR[facility]UNATO & Katharine BUCIO in [place]. | + + + | Other | [...] 03/06/ | Office | [facility] | Katharine Cardona PA-C | Hypothyroidism due | | 2014 | Visit | MEDICINE [address] | [address] [facility] | to acquired atrophy | | | | Street [place] | [place] [address] | of thyroid (Primary | | | | [place] [address] | [phone] | Dx); Essential | | | | [phone] | | hypertension; Iron | | | [...] | | | ([facility]); Environmental | | | | | | [...] | | obesity) ([facility]); | | | | | | Type 2 diabetes | | | | | | mellitus, controlled | | | | | | ([facility]); Preventative | | | | | | [...] t be different from the original. Ask [employer] if they think it might be [...] Cont your meds as prescribed. F/U with [employer] as scheduled Neuropathy Continue gabapentin. May [...] the pain. Would be worth discussing with [employer] Psych Back Pain Will refer to water therapy (aqua fitness) at [facility] as request ed. [...] 4. Schizoaffective disorder, bipolar type ([facility]) 5. Neuropathy Vitamin B-12 6. BACK PAIN, LUMBAR, WITH RADICULOPATHY Ambulatory referral to Physical Therapy 7. ROGERS on CPAP 8. Stroke ([facility]) 9. Environmental and seasonal allergies fluticasone (FLONASE) 50 mcg/nasal spray 10. Gastroesophageal reflux disease without esophagitis dexlansoprazole (DEXILANT) 60 mg D R capsule 11. History of gastric restrictive surgery Vitamin D, 25-Hydroxy Nutrition Services - External - AMB Referral 12. Obesity, Class III, BMI 40-49.9 (morbid obesity) ([facility]) Ambulatory referral to Physical Therapy Nutrition Services - External - AMB Referral 13. Type 2 diabetes mellitus, controlled ([facility]) Ambulatory referral to Physical Therapy Nutrition Services [...] Cont your meds as prescribed. F/U with [employer] as scheduled Neuropathy Continue gabapentin. May [...] the pain. Would be worth discussing with [employer] professional. Back Pain Will refer to water therapy (aqua fitness) at [facility] as request ed. Cont home exercise, [...] plan. The above note was dictated using [employer] voice recognition software. It may have not been proofread in entirety. Minor errors in grammar may occur. CHIEF COMPLAINT Chief Complaint Patient presents with Establish Care Presents to establish care. Former patient of Natalee B[facility]IO & Katharine BUCIO in [place]. Other Possible stroke January 2015. Is now [...] auditory, at 36. She worked as an [employer] prior to her psychotic break. She is now very well controlled on Saphris, Depakote, and Paxi l. She is followed by [facility] in [place]. She has DM2 that is well controlled [...] worked up by steve rowe, Dr [place], [place]. More recently, she presented to ED with [...] placed 05/2013. Told her she would li rwody only lose 50 lbs, which she has. [...] Laterality: N/A; Surgeon: Frandy castellanos DO; Location: [facility] MAIN OR SOCIAL HISTORY History Social [...] mg by mouth Daily. Cholecalciferol (VITAMIN D-3) 84730 units CAPS Oral Take 50,000 Units by [...] Oral Take 10 mg by mouth nightly. [place]-3 Fatty Acids (FISH OIL CONCENTRATE) 1000 [...] [place] | | | | | | [id number] | | | | | | | [...] | | | | controlled ([facility]) | | | | | | Obesity, Class III, | | | | | | BMI 40-49.9 (morbid | | | | | | obesity) ([facility]) | | + + +--------+ + + | Nutrition Services - | Outpatient | Routin | Iron deficiency | Ordered: 03/06/2015 | | External - AMB | Referral | e | anemia Type 2 | | | Referral | | | diabetes mellitus, | | | | | | controlled ([facility]) | | | | | | History of gastric | | | | | | restrictive surgery | | | | | | Obesity, Class III, | | | | | | BMI 40-49.9 (morbid | | | | | | obesity) ([facility]) | | + + +--------+ + + [...] 12 | 7 - 18 mg/dL | [facility] | | | | | | [facility] | | | | | | MEDICAL | | | | | | CENTER - | | | | | | LABORATORY | | + + + + + + | Creatinine | 0.66 | 0.60 - 1.30 | [facility] | | | | | mg/dL | [facility] | | | | | | MEDICAL | | | | | | CENTER - | | | | | | LABORATORY | | + + + + + + | eGFR if not | >60Comment: GLOMERULAR | >=60 | [facility] | | | | FILTRATION | mL/min/1.73m2 | [facility] | | | LATVI[place] | RATE,ESTIMATED | | MEDICAL | | | | mL/min/1.38f2Jkat than | | CENTER - | | [...] [address] | [place] | [phone] | | [facility] | | [address] | | | - LABORATORY | | [...] Type 2 diabetes mellitus, controlled ([facility]) Type II or unspecified type diabetes | | mellitus without mention of complication, not stated as uncontrolled | + + | Preventative health care Routine general medical examination at a health care | | facility | + + documented in this encounter
--- OUTSIDE RECORDS SUMMARY | ~2019-09-28 | XMS | Encounter Summary ---
Demographics + + + | Address | [address] | | | [place] [address] | + + + | Home Phone [...] [place] | | | | | [address] | | + + + + + Care Team Providers + +------+ + | Care Classification Counselor Name | Role | Phone | [...] [place] | | | | | | [address] | | | | | | [phone] | | | +--------+ + + + [...] [place] | | | | | | [address] | | | | | | | | +--------+---------+ + + + documented as of this encounter Visit Diagnoses Not on filedocumented in this encounter"
--- OUTSIDE RECORDS SUMMARY | ~2019-09-28 | XMS | Encounter Summary ---
Demographics + + + | Address | [address] | | | [place] [address] | + + + | Home Phone [...] [place], [place] | | | | | [address] | | + + + + + Care Team Providers + +------+ + | Care Hydraulic Jack Operator Name | Role | Phone [...] [place] | | | | | | [address] | | | | | | [phone] | | | +--------+ + + + [...] | | | | | [place] | | | | | | [address] | | | | | | | | +--------+---------+ + + + documented as of this encounter Visit Diagnoses Not on filedocumented in this encounter"
--- OUTSIDE RECORDS SUMMARY | ~2019-09-28 | XMS | Encounter Summary ---
Demographics + + + | Address | [address] | | | [place] [address] | + + + | Home Phone [...] [place] | | | | | [address] | | + + + + + Care Team Providers + +------+ + | Care Slot Operations Manager Name | Role | Phone [...] + + | 07/30/ | Telephone | [facility] | Ashley Chávez | Talia (Patient | | 2019 | | CARDIOLOGY [place] Abad, Manager | mariela ) | | | | [address] | | | | | | [place], [place] | | | | | | [address] | | | | | | [phone] | | | +--------+ + + + [...] [place] | | | | | | [address] | | | | | | | | +--------+---------+ + + + documented as of this encounter Visit Diagnoses Not on filedocumented in this encounter"
--- OUTSIDE RECORDS SUMMARY | ~2019-09-28 | XMS | Encounter Summary ---
Demographics + + + | Address | [address] | | | [place] [address] | + + + | Home Phone [...] [place] | | | | | [address] | | + + + + + Care Team Providers + +------+ + | Care Civil Estimator Name | Role | Phone | + +------+ + | Adriano Patrick MD | PCP | | + +------+ + Encounter Details +--------+ + + + + | Date | Type | Department | Care Team | Description | +--------+ + + + + | 06/12/ | Hospital | [facility] | Frandy Teresa, | No Show | | 2014 | Encounter | MED CTR | DO [address] | | | | | ELECTRODIAGNOSTICS | [address] [place], [place] | | | | | [address] [place] | [address] | | | | | [place] [address] | | | | | | [phone] | | | +--------+ + + + [...] [place] | | | | | | [address] | | | | | | | | +--------+---------+ + + + documented as of this encounter Visit Diagnoses Not on filedocumented in this encounter"
--- OUTSIDE RECORDS SUMMARY | ~2019-09-28 | XMS | Encounter Summary ---
Demographics + + + | Address | [address] | | | [place] [address] | + + + | Home Phone [...] [place] | | | | | [address] | | + + + + + Care Team Providers + +------+ + | Care City Editor Name | Role | Phone | [...] + | 02/01/ | Telephone | [facility] | Frandy Teresa, | Imaging Only | | 2019 | | NEUROSURGERY [address] | DO [address] | | | | | [address] | [address] [place], [place] | | | | | [place], [place] | [address] | | | | | [address] | | | | | | [phone] | | | +--------+ + + + [...] [place] | | | | | | [address] | | | | | | | | +--------+---------+ + + + documented as of this encounter Visit Diagnoses Not on filedocumented in this encounter"
--- OUTSIDE RECORDS SUMMARY | ~2019-09-28 | XMS | Encounter Summary ---
Demographics + + + | Address | [address] | | | [place] [address] | + + + | Home Phone [...] [place] | | | | | [address] | | + + + + + Care Team Providers + +------+ + | Care Moving Picture Operator Name | Role | Phone | + +------+ + | Basim Bolanos MD | PCP | | + +------+ + Encounter Details +--------+ + + + + | Date | Type | Department | Care Team | Description | +--------+ + + + + | 02/22/ | Abstract | [facility] [place] | [facility], | | | 2012 | | GASTROENTEROLOGY | [place]O [place] [address] | | | | | [address] | [place] | | | | | [address] [place], [place] | [place], [place] | | | | | [address] | [address] | | | | | [phone] | | | +--------+ + + + [...] [place] | | | | | | [address] | | | | | | | | +--------+---------+ + + + documented as of this encounter Visit Diagnoses Not on filedocumented in this encounter"
--- OUTSIDE RECORDS SUMMARY | ~2019-09-28 | XMS | Encounter Summary ---
Demographics + + + | Address | [address] | | | [place] [address] | + + + | Home Phone [...] [place] | | | | | [address] | | + + + + + Care Team Providers + +------+ + | Care Manager Vehicle Name | Role | Phone | + [...] + | 12/03/ | Refill | [facility] | Frandy Teresa, | Medication Refill | | 2014 | | NEUROSURGERY [address] | DO [address] | | | | | [address] | [address] [place], [place] | | | | | [place], [place] | [id number] | | | | | [address] | | | | | | [phone] | | | +--------+--------+ + + + [...] | | | | | [place] | | | | | | [address] | | | | | | | | +--------+---------+ + + + documented as of this encounter Visit Diagnoses Not on filedocumented in this encounter"
--- OUTSIDE RECORDS SUMMARY | ~2019-09-28 | XMS | Encounter Summary ---
Demographics + + + | Address | [address] | | | [place] [address] | + + + | Home Phone [...] [place] | | | | | [address] | | + + + + + Care Team Providers + +------+ + | Care Ammonia Solution Preparer Name | Role | Phone | [...] [place] | | | | | | [address] | | | | | | [phone] | | | +--------+ + + + [...] [place] | | | | | | [address] | | | | | | | | +--------+---------+ + + + documented as of this encounter Visit Diagnoses Not on filedocumented in this encounter"
--- OUTSIDE RECORDS SUMMARY | ~2019-09-28 | XMS | Encounter Summary ---
Demographics + + + | Address | [address] | | | [place] [address] | + + + | Home Phone [...] [place] | | | | | [address] | | + + + + + Care Team Providers + +------+ + | Care Hand Candle Dipper Name | Role | Phone | [...] | | | | | | | [address] | | | | | | | Phone: | | | | | | | [phone] | | | | | | | Fax: | | | | | | | [phone] | | +--------+ + + + + + Reason for Visit + + + | Reason | Comments | + + + | Follow-up | 4 Week PO | + + + Encounter Details +--------+---------+ + + + | Date | Type | Department | Care Team | Description | +--------+---------+ + + + | 07/25/ | Office | [facility] | Frandy Teresa, | Lumbar spondylosis | | 2013 | Visit | NEUROSURGERY [address] | DO [address] | (Primary Dx); S/P | | | | [address] | [address] [place], [place] | lumbar fusion | | | | [place], [place] | [address] | | | | | [address] | | | | | | [phone] | | | +--------+---------+ + + + [...] DO [address], [address] [place], [place] [address] FAX: NEUROSURGERY SURGICAL FOLLOW-UP CHIEF COMPLAINT: Chief [...] Take 15 mg by mouth nightl y. [place]-3 Fatty Acids (FISH OIL CONCENTRATE) 1000 MG [...] [place] | | | | | | [id number] | | | | | | | [...] + | MISCELLANEOUS LAB | | | [phone] | + +---------+ + + | MISCELANIOUS LAB | | | [phone] | + +---------+ + + documented in this encounter Visit Diagnoses + + | Diagnosis | + + | Lumbar spondylosis - Primary Lumbosacral spondylosis without myelopathy | + + | S/P lumbar fusion Arthrodesis status | + + documented in this encounter
--- OUTSIDE RECORDS SUMMARY | ~2019-09-28 | XMS | Encounter Summary ---
Demographics + + + | Address | [address] | | | [place] [address] | + + + | Home Phone [...] [place] | | | | | [address] | | + + + + + Care Team Providers + +------+ + | Care Fundraising Officer Name | Role | Phone | [...] + + | 08/20/ | Documentati | [facility] | Katharine Moncada, | Other (urgent | | 2019 | on | CARDIOLOGY [place] | Technologist | report) | | | | [address] | | | | | | [place] | | | | | | [address] | | | | | | [phone] | | | +--------+ + + + [...] [place] | | | | | | [address] | | | | | | | | +--------+---------+ + + + documented as of this encounter Visit Diagnoses Not on filedocumented in this encounter"
--- OUTSIDE RECORDS SUMMARY | ~2019-09-28 | XMS | Encounter Summary ---
Demographics + + + | Address | [address] | | | [place] [address] | + + + | Home Phone [...] [place] | | | | | [address] | | + + + + + Care Team Providers + +------+ + | Care Enforcement Safety Officer Name | Role | Phone | + +------+ + | Basim Bolanos MD | PCP | | + +------+ + Encounter Details +--------+ + + + + | Date | Type | Department | Care Team | Description | +--------+ + + + + | 03/30/ | Hospital | [facility] | Tyrese Neely MD | | | 2012 | Encounter | MED CTR MP INTRA OP | [address], [place] | | | | | [address] | [address] [place], [place] | | | | | [place], [place] | [address] | | | | | [address] | | | | | | [phone] | | | +--------+ + + + [...] + + + +---------+ + + | [place]-3 Fatty | Take 1,000 mg by | [...] [place] | | | | | | [address] | | | | | | | [...] + | [facility] | [address] | [place] | [phone] | | [facility] | | [address] | | | - LABORATORY | | | | + + + + + | [facility] | [address] | [place] | | | [facility] | | [address] | | | - LABORATORY | | [...] + | [facility] | [address] | [place], [place] | [phone] | | [facility] | | [address] | | | - LABORATORY | | | | + + + + + | [facility] | [address] | [place], [place] | | | [facility] | | [address] | | | - LABORATORY | | | | + + + + + documented in this encounter Visit Diagnoses Not on filedocumented in this encounter"
--- OUTSIDE RECORDS SUMMARY | ~2019-09-28 | XMS | Encounter Summary ---
Demographics + + + | Address | [address] | | | [place] [address] | + + + | Home Phone [...] [place] | | | | | [address] | | + + + + + Care Team Providers + +------+ + | Care Natural Developer Name | Role | Phone | [...] Office | [facility] | Deon Gonzales | ROGERS (obstructive | | 2012 | Visit | SLEEP DISORDER [address] | MD [address] | sleep apnea) | | | | [address] [place] | [address] [place] | (Primary Dx); | | | | [place] [address] | [place] [address] | Sleepiness | | | | [phone] | [phone] | | | | | | | [...] differen t from the original. 03/06/13 [address] [place] Sleepiness Scale Sitting and reading 3 Watching [...] by mouth Daily., Disp: , Rfl: ; [place]-3 Fatty Acids (FISH OIL CONCENTRATE) 1000 MG [...] | | | | | [place] Patricio [place] | | | | | | [phone] | | | | | | | | +--------+---------+ + + + documented as of this encounter Visit Diagnoses + + | Diagnosis | + + | ROGERS (obstructive sleep apnea) - Primary Obstructive sleep apnea (adult) (pediatric) | + + | Sleepiness Other alteration of consciousness | + + documented in this encounter"
--- OUTSIDE RECORDS SUMMARY | ~2019-09-28 | XMS | Encounter Summary ---
Demographics + + + | Address | [address] | | | [place] [address] | + + + | Home Phone [...] [place], [place] | | | | | [address] | | + + + + + Care Team Providers + +------+ + | Care Freight Engineer Name | Role | Phone | + +------+ + PCP | Unavailable | + +------+ + Encounter Details +--------+ + + + + | Date | Type | Department | Care Team | Description | +--------+ + + + + | 06/17/ | Hospital [facility] | | | | 1991 - | Encounter | MED CTR GENERIC PSY | | | | | | CONV DEPT [address] | | | | 06/18/ | | [place], | | | | 1991 | | [place] [address] | | | | | | [phone] | | | +--------+ + + + [...] [place] | | | | | | [address] | | | | | | | | +--------+---------+ + + + documented as of this encounter Visit Diagnoses Not on filedocumented in this encounter"
--- OUTSIDE RECORDS SUMMARY | ~2019-09-28 | XMS | Encounter Summary ---
Demographics + + + | Address | [address] | | | [place] [address] | + + + | Home Phone [...] [place] | | | | | [address] | | + + + + + [...] Closed | | Radiology | Diagnoses | [place], | | | | | | Thoracic or | Natalee L, | | | | | | lumbosacral | [employer] [address] | | | | | | neuritis or | [address] | | | | | | | [address] | | | | | | radiculitis, | [place], | | | | | | unspecified | [place] [address] | | | | | | | Phone: | | | | | | Degeneration | [phone] | | | | | | of lumbar | Fax: | | | | | | or | [phone] | | | | | | lumbosacral [...] MED CTR MRI [address] | L, [employer] [address] | lumbosacral neuritis | | | | [place], | [address] | or radiculitis, | | | | [place] [address] | [place] [address] | unspecified; | | | | [phone] | [phone] | Degeneration of | | | | [...] + + + +---------+ + + | [place]-3 Fatty | Take 1,000 mg by | [...] [place] | | | | | | [address] | | | | | | | [...] + | MISCELLANEOUS LAB | | | [phone] | + +---------+ + + | MISCELANIOUS LAB | | | [phone] | + +---------+ + + documented in this encounter Visit Diagnoses + + | Diagnosis | + + | Thoracic or lumbosacral neuritis or radiculitis, unspecified | + + | Degeneration of lumbar or lumbosacral intervertebral disc | + + documented in this encounter"
--- OUTSIDE RECORDS SUMMARY | 2019-09-28 13:20 | XMS ---
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 Events No recent Security Events currently on file CRITERIA MET - 6 ED Visits in 6 Months - [facility] - Has Care Guidelines - PDMP - [facility] - 2 Visits in 30 Days CARE PROVIDERS WAYNE CAMARGO Internal Medicine 09/07/2019-Current PHONE: Unknown Kenny Palafox DO Family [facility] Current PHONE: Unknown Jose Ag Family Medicine 01/31/2019-Current PHONE: Unknown [facility] [place] [facility] Provider Current PHONE: [phone] Guidelines Source: [facility] - [place] Guidelines Date: 03/13/2019 Care Coordination: Mental health services are being provided by [facility].\T\nbsp; Please contact [facility] with mental health concerns.\T\nbsp; [facility] \T\nbsp; Moshe: [phone]. Care History Medical/Surgical 09/19/2019 [facility] Patient has follow up appt. with Dr. Camargo on 09/28/19. 07/02/2019 [facility] - PATIENT HAS AN APT WITH [facility]NALES ON 07/19/19. 05/08/2019 [facility] - PATIENT HAS A KNOTTER HAND - DR DESHAUN ACEVEDO -[facility] [phone]. - PATIENT IS WORKING CLOSELY WITH [employer] IN REGARDS TO PSYCHIATRIC MEDICATIONS. ANY PSYCHIATRIC MED CHANGES AND OR ADJUSTMENTS WILL NEED TO BE REVIEWED BY CATERING TRUCK DRIVER [facility] E.Pollo. VISIT COUNT (12 MO.) 22 [facility]. TOTAL 22 NOTE: Visits indicate total known visits. ED/UCC VISIT TRACKING (12 MO.) 09/28/2019 13:19 [facility] [place] TYPE: Emergency COMPLAINT: - MEDICAL CLEARANCE 09/26/2019 10:06 [facility] [place] TYPE: Emergency COMPLAINT: - MEDICAL CLEARANCE 09/25/2019 13:35 [facility] [place] TYPE: Emergency COMPLAINT: - HEARING VOICES DIAGNOSES: - 1 Type 2 diabetes mellitus without complications - Prsnl hx of TIA (TIA), and 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 - Gastro-esophageal reflux disease without esophagitis - Schizoaffective disorder, unspecified - Suicidal ideations - terminologist (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 - Old myocardial infarction - Allergy status to sulfonamides status - Essential (primary) hypertension - 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 - Allergy status to oth drug/meds/biol subst status 09/18/2019 13:53 [facility] [place] TYPE: Emergency COMPLAINT: - MEDICAL CLEARANCE DIAGNOSES: - 1 Type 2 diabetes mellitus without complications - Schizoaffective disorder, unspecified - Suicidal ideations - Allergy status to oth drug/meds/biol subst status - Gastro-esophageal reflux disease without esophagitis - Old myocardial infarction - terminologist (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 - Essential (primary) hypertension - Rash and other nonspecific skin eruption - Allergy status to sulfonamides status - Other half-way (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 09/18/2019 10:33 [facility] [place] TYPE: Emergency COMPLAINT: - SUICIDAL THOUGHTS, HEARING VOICES DIAGNOSES: - Disorder of urea cycle metabolism, unspecified - Other half-way (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 - Schizoaffective disorder, unspecified - Essential (primary) hypertension - 1 Type 2 diabetes mellitus without complications - Gastro-esophageal reflux disease without esophagitis - Old myocardial infarction - Allergy status to sulfonamides status - Allergy status to oth drug/meds/biol subst status - prison (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 09/06/2019 11:40 [facility] [place] TYPE: Emergency COMPLAINT: - MEDICAL CLEARANCE DIAGNOSES: - Old myocardial infarction - Essential (primary) hypertension - Allergy status to sulfonamides status - Auditory hallucinations - Other half-way (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 - Allergy status to oth drug/meds/biol subst status - 1 Type 2 diabetes mellitus without complications - Gastro-esophageal reflux disease without esophagitis 08/15/2019 15:26 [facility] [place] TYPE: Emergency COMPLAINT: - DIZZINESS DIAGNOSES: - Schizoaffective disorder, unspecified - 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 - 1 Type 2 [...] 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 - Other half-way (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 - Allergy status to [...] Allergy status to sulfonamides status - 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 - Allergy status to [...] status to narcotic agent status - 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 - Schizophrenia, unspecified 05/10/2019 14:24 [facility] [place] TYPE: Emergency COMPLAINT: - MEDICAL CLEARANCE DIAGNOSES: - Acquired absence of other specified parts of digestive tract - 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 - Gastro-esophageal reflux disease without esophagitis - 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 - Allergy status to oth drug/meds/biol subst status - terminologist (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 of 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 - [...] Allergy status to sulfonamides status - 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 - Essential (primary) hypertension [...] deficits - Old myocardial infarction - 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 - Allergy status to sulfonamides status - Other chest pain 05/02/2019 13:59 [facility] [place] TYPE: Emergency COMPLAINT: - VOMITING, CHEST PAIN, WEAKNESS DIAGNOSES: - Allergy status to sulfonamides status - terminologist (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 of 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 - [...] of urea cycle metabolism, unspecified - 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 - Acquired absence of other specified parts of digestive tract - Essential (primary) hypertension 04/03/2019 12:30 [facility] [place] TYPE: Emergency COMPLAINT: - TROUBLE BREATHING DIAGNOSES: - Allergy status to oth drug/meds/biol subst status - Other half-way (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 - Allergy status to [...] tract - Essential (primary) hypertension - 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
[2019-09-28] MEDS ORDERED: OLANZAPINE20 MG PO (13:46)
== END 2019-09-28 19:02 | disposition short-term general hospital (02) ==
LOC: ED 13:18
DX: Z02.89 Encounter for other administrative examinations (principal); I10 Essential (primary) hypertension; E11.9 Type 2 diabetes mellitus without complications; K21.9 Gastro-esophageal reflux disease without esophagitis; I25.2 Old myocardial infarction; Z88.2 Allergy status to sulfonamides; Z88.8 Allergy status to other drugs, medicaments and biological substances; Z79.899 Other long term (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
CPT/HCPCS: 80053; 80176; 81001; 84443; 85025; 99285; G0480

== ENCOUNTER 2019-10-11 10:06 | Emergency (ER) | payer MEDICARE ==
[~2019-10-11] VITALS: Ht 170.2 cm; Wt 134.6 kg
--- OUTSIDE RECORDS SUMMARY | ~2019-10-11 | XMS | Encounter Summary ---
Demographics + + + | Address | [address] | | | [place] [address] | + + + | Home Phone | | + + + | Preferred Language | Unknown | + + + | Marital Status | | + + + | Oriental Orthodox Affiliation | 1013 | + + + | Race | Unknown | + + + | Ethnic Group | Unknown | + + + Author + + + | Author | [facility] | | | and [place] | + + + | Organization | [facility] | | | and [place] | + + + | Address | Unknown | + + + | Phone | Unavailable | + + + Support + + + + + | Name | Relationship | Address | Phone | + + + + + | Araceli Sibley | ECON | [place] | | | | | [address] | | + + + + + Care Team Providers + +------+ + | Care Oracle Hrms Developer Name | Role | Phone | + +------+ + | Natalee Andersen NP | PCP | | + +------+ + Reason for Referral Diagnostic/Screening (Routine) +--------+--------+ + + + + | Status | Reason | Specialty | Diagnoses / | Referred By | Referred To | | | | | Procedures | Contact | Contact | +--------+--------+ + + + + | Closed | | Radiology | Diagnoses | Brii, | [facility] | | | | | Disturbance | Frandy Simons DO | [address] | | | | | of skin | [address] | [place], | | | | | sensation | [address] | [place] | | | | | Arthrodesis | [place], [place] | [address] | | | | | status Left | [id number] | Phone: | | | | | leg | Phone: | [phone] | | | | | weakness | [phone] | Fax: | | | | | Procedures | Fax: | [phone] | | | | | MRI Lumbar | [phone] | | | | | | Spine wo | | | | | | | Contrast | | | +--------+--------+ + + + + Reason for Visit +--------+ + | Reason | Comments | +--------+ + | Other | | +--------+ + Encounter Details +--------+ + + + + | Date | Type | Department | Care Team | Description | +--------+ + + + + | 08/12/ | Telephone | [facility] | Frandy Teresa, | Other | | 2013 | | NEUROSURGERY [address] | DO [address] | | | | | [address] | [address] [place], [place] | | | | | [place], [place] | [address] | | | | | [address] | | | | | | [phone] | | | +--------+ + + + [...] | Desiree Peterson DO | | | 2020 | Visit | | [address] | | | | | | [place] | | | | | | [address] | | | | | | | | +--------+---------+ + + + documented as of this encounter Results MRI Lumbar Spine wo Contrast (08/19/2014 12:05 PM PDT) + + | Specimen | + + | | + + + + + | Narrative | Performed At | + + + | MRI LUMBAR SPINE WO CONTRAST 08/19/2014 12:05 PM HISTORY: S/P | MISCELANIOUS | | lumbar fusion; Left leg weakness/numbness. COMPARISON: Lumbar | LAB | | spine x-ray dated 07/25/2014, lumbar spine MRI dated 03/11/2014. | | | PROTOCOL: Sagittal T2, sagittal T1, axial T2, axial T1, sagittal STIR, | | | coronal T2. FINDINGS: Hardware for posterior fusion extends | | | from L5 through S1 along with spacer hardware at L5-S1. Mild leftward | | | curvature is noted of the lumbar spine. There is mild spondylosis. | | | Again visualized is the round structure with high T1 and T2 signal in | | | the right L3 vertebral body that has appearance of a hemangioma. | | | There is disc desiccation throughout the lumbar spine. Mild disc | | | narrowing is at L4-5. There is moderate to severe disc narrowing at | | | L5-S1. Imaged spinal cord and cauda equina demonstrate normal | | | signal with no evidence for myelomalacia or mass lesions. The conus | | | medullaris terminates at level L1, which is normal. There is a | | | 1.3 cm cyst with high T2 signal in the left adnexa. L3-4: A 3 mm | | | posterior disc bulge is present along with moderate facet hypertrophy | | | and ligamentum flavum hypertrophy. Mild bilateral facet fluid are | | | seen. There is no central stenosis. Mild bilateral neural foraminal | | | canal stenoses are seen. Degenerative changes remain relatively | | | stable at this level. L4-5: A 2 mm posterior disc bulge is | | | observed along with moderate facet hypertrophy and ligamentum flavum | | | hypertrophy. There is mild central stenosis with AP dimension 10 mm. | | | This has progressed compared to the prior MRI. Stable mild left | | | neural foraminal canal stenosis is seen. L5-S1: A 2 mm posterior | | | disc bulge is present along with moderate facet hypertrophy and | | | ligamentum flavum hypertrophy. There is overall mild central stenosis | | | with AP dimension 10 mm. This has progressed compared to the prior | | | MRI. Moderate bilateral neural foraminal canal stenoses are seen that | | | have remained stable. IMPRESSION - Posterior fusion from L5 | | | through S1. Multifactorial degenerative changes at L4-5 and L5-S1 | | | leading to mild central canal stenoses that have progressed. There is | | | additional stable moderate bilateral neural foraminal canal stenoses | | | at L5-S1 and mild left neural foraminal canal stenosis at level | | | L4-5. Stable degenerative changes at L3-4 with mild bilateral | | | neural foraminal canal stenoses. Small cyst in left adnexa. If | | | clinically indicated, ultrasound imaging can be acquired for further | | | evaluation. Dictated and Signed by: Wolf Calabrese MD | | | Electronically signed: 08/19/2014 4:36 PM | | + + + + + | Procedure Note | + + | Juan, Rad Results In - 08/19/2014 4:39 PM PDT MRI LUMBAR SPINE WO CONTRAST 08/19/2014 | | 12:05 PM HISTORY: S/P lumbar fusion; Left leg weakness/numbness.COMPARISON: Lumbar | | spine x-ray dated 07/25/2014, lumbar spine MRI dated03/11/2014.PROTOCOL: Sagittal T2, | | sagittal T1, axial T2, axial T1, sagittal STIR, coronalT2.FINDINGS:Hardware for | | posterior fusion extends from L5 through S1 along with spacerhardware at L5-S1. Mild | | leftward curvature is noted of the lumbar spine. Thereis mild spondylosis. Again | | visualized is the round structure with high T1 and [id number] in the right L3 vertebral | | body that has appearance of a hemangioma.There is disc desiccation throughout the lumbar | | spine. Mild disc narrowing is atL4-5. There is moderate to severe disc narrowing at | | L5-S1. Imaged spinal cord and cauda equina demonstrate normal signal with no evidencefor | | myelomalacia or mass lesions. The conus medullaris terminates at level L1,which is | | normal.There is a 1.3 cm cyst with high T2 signal in the left adnexa.L3-4: A 3 mm | | posterior disc bulge is present along with moderate facethypertrophy and ligamentum | | flavum hypertrophy. Mild bilateral facet fluid areseen. There is no central stenosis. | | Mild bilateral neural foraminal canalstenoses are seen. Degenerative changes remain | | relatively stable at this level. L4-5: A 2 mm posterior disc bulge is observed along | | with moderate facethypertrophy and ligamentum flavum hypertrophy. There is mild central | | stenosiswith AP dimension 10 mm. This has progressed compared to the prior MRI. | | Stablemild left neural foraminal canal stenosis is seen. L5-S1: A 2 mm posterior disc | | bulge is present along with moderate facethypertrophy and ligamentum flavum hypertrophy. | | There is overall mild centralstenosis with AP dimension 10 mm. This has progressed | | compared to the prior MRI.Moderate bilateral neural foraminal canal stenoses are seen | | that have remainedstable. IMPRESSION -Posterior fusion from L5 through S1.Multifactorial | | degenerative changes at L4-5 and L5-S1 leading to mild centralcanal stenoses that have | | progressed. There is additional stable moderatebilateral neural foraminal canal stenoses | | at L5-S1 and mild left neuralforaminal canal stenosis at level L4-5.Stable degenerative | | changes at L3-4 with mild bilateral neural foraminal canalstenoses.Small cyst in left | | adnexa. If clinically indicated, ultrasound imaging can beacquired for further | | evaluation.Dictated and Signed by: Wolf Calabrese MD Electronically signed: 08/19/2014 | | 4:36 PM | |L4-5: A 2 mm posterior disc bulge is observed along with moderate facet | |hypertrophy and ligamentum flavum hypertrophy. There is mild central stenosis | |with AP dimension 10 mm. This has progressed compared to the prior MRI. Stable | |mild left neural foraminal canal stenosis is seen. | | | |L5-S1: A 2 mm posterior disc bulge is present along with moderate facet | |hypertrophy and ligamentum flavum hypertrophy. There is overall mild central | |stenosis with AP dimension 10 mm. This has progressed compared to the prior MRI. | |Moderate bilateral neural foraminal canal stenoses are seen that have remained | |stable. | | | |IMPRESSION - | |Posterior fusion from L5 through S1. | | | |Multifactorial degenerative changes at L4-5 and L5-S1 leading to mild central | |canal stenoses that have progressed. There is additional stable moderate | |bilateral neural foraminal canal stenoses at L5-S1 and mild left neural | |foraminal canal stenosis at level L4-5. | | | |Stable degenerative changes at L3-4 with mild bilateral neural foraminal canal | |stenoses. | | | |Small cyst in left adnexa. If clinically indicated, ultrasound imaging can be | |acquired for further evaluation. | | | |Dictated and Signed by: Wolf Calabrese MD | | Electronically signed: 08/19/2014 4:36 PM | + + + +---------+ + + | Performing | Address | City/State/Zipcode | Phone Number | | Organization | | | | + +---------+ + + | MISCELLANEOUS LAB | | | [phone] | + +---------+ + + | MISCELANIOUS LAB | | | [phone] | + +---------+ + + documented in this encounter Visit Diagnoses + + | Diagnosis | + + | Status post lumbar spinal fusion - Primary Arthrodesis status | + + | Left leg numbness Disturbance of skin sensation | + + | Left leg weakness Other musculoskeletal symptoms referable to limbs | + + documented in this encounter"
--- OUTSIDE RECORDS SUMMARY | ~2019-10-11 | XMS | Encounter Summary ---
Demographics + + + | Address | [address] | | | [place] [address] | + + + | Home Phone | | + + + | Preferred Language | Unknown | + + + | Marital Status | | + + + | Orthodoxy Affiliation | 1013 | + + + | Race | Unknown | + + + | Ethnic Group | Unknown | + + + Author + + + | Author | [facility] | | | and [place] | + + + | Organization | [facility] | | | and [place] | + + + | Address | Unknown | + + + | Phone | Unavailable | + + + Support + + + + + | Name | Relationship | Address | Phone | + + + + + | Araceli Sibley | ECON | [place] | | | | | [address] | | + + + + + Care Team Providers + +------+ + | Care Spotlight Operator Name | Role | Phone | + +------+ + | Adraino Patrick MD | PCP | | + +------+ + Reason for Visit +--------+ + | Reason | Comments | +--------+ + | Other | urgent report | +--------+ + Encounter Details +--------+ + + + + | Date | Type | Department | Care Team | Description | +--------+ + + + + | 09/10/ | Documentati | [facility] | Katharine Moncada, | Other (urgent | | 2019 | on | CARDIOLOGY [place] | Technologist | report) | | | | [address] | | | | | | [place] | | | | | | [address] | | | | | | [phone] | | | +--------+ + + + [...] + + documented as of this encounter Progress Notes Katharine Moncada, Technologist - 09/10/2019 7:37 AM PSTReceived urgent 09/10/19 Pt had a self triggered 08/24/19 at 20:14 108 BPM 30 day monitor was placed 08/09/19 Medication: metFORMIN (GLUCOPHAGE-XR) 500 mg 24 hr tablet Will continue to monitor Please see attachment documented in this enco unter Plan of Treatment +--------+---------+ + + + | Date | Type | Specialty | Care Team | Description | +--------+---------+ + + + | 04/10/ | Office | Cardiology | Desiree Peterson DO | | | 2020 | Visit | | [address] | | | | | | [place] | | | | | | [address] | | | | | | | | +--------+---------+ + + + documented as of this encounter Visit Diagnoses Not on filedocumented in this encounter"
--- OUTSIDE RECORDS SUMMARY | ~2019-10-11 | XMS | Encounter Summary ---
Demographics + + + | Address | [address] | | | [place] [address] | + + + | Home Phone | | + + + | Preferred Language | Unknown | + + + | Marital Status | | + + + | Uatsdin Affiliation | 1013 | + + + | Race | Unknown | + + + | Ethnic Group | Unknown | + + + Author + + + | Author | [facility] | | | and [place] | + + + | Organization | [facility] | | | and [place] | + + + | Address | Unknown | + + + | Phone | Unavailable | + + + Support + + + + + | Name | Relationship | Address | Phone | + + + + + | Araceli Sibley | ECON | [place], [place] | | | | | [address] | | + + + + + Care Team Providers + +------+ + | Care Grid Operator Name | Role | Phone | + +------+ + PCP | Unavailable | + +------+ + Encounter Details +--------+ + + + + | Date | Type | Department | Care Team | Description | +--------+ + + + + | 03/13/ | Hospital | [facility] | | | | 1996 - | Encounter | MED CTR GENERIC OP | | | | | | CONV DEPT [address] | | | | 03/21/ | | [place], | | | | 1996 | | [place] [address] | | | | | | [phone] | | | +--------+ + + + [...] [place] | | | | | | [address] | | | | | | | | +--------+---------+ + + + documented as of this encounter Visit Diagnoses Not on filedocumented in this encounter"
--- OUTSIDE RECORDS SUMMARY | ~2019-10-11 | XMS | Encounter Summary ---
Demographics + + + | Address | [address] | | | [place] [address] | + + + | Home Phone | | + + + | Preferred Language | Unknown | + + + | Marital Status | | + + + | Taoist Affiliation | 1013 | + + + | Race | Unknown | + + + | Ethnic Group | Unknown | + + + Author + + + | Author | [facility] | | | and [place] | + + + | Organization | [facility] | | | and [place] | + + + | Address | Unknown | + + + | Phone | Unavailable | + + + Support + + + + + | Name | Relationship | Address | Phone | + + + + + | Araceli Sibley | ECON | [place], [place] | | | | | [address] | | + + + + + Care Team Providers + +------+ + | Care Branch Mechanic Name | Role | Phone | + +------+ + PCP | Unavailable | + +------+ + Encounter Details +--------+ + + + + | Date | Type | Department | Care Team | Description | +--------+ + + + + | 02/02/ | Hospital | [facility] | Serafin Bautista | | | 2012 | Encounter | MED CTR XRAY [address] | T, MD [address] | | | | | [place] | [address] [place], [place] | | | | | [place] [address] | [address] | | | | | [phone] | | | +--------+ + + + [...] + + + +---------+ + + | cyclobenzaprine | Take 5 mg by mouth | | 0 | 01/27/20 | | | (FLEXERIL) 5 MG | Daily as needed. | | | 12 | 4 | | tablet | | | | [...] [place] | | | | | | [address] | | | | | | | | +--------+---------+ + + + documented as of this encounter Procedures + +--------+ + + + | Procedure Name | Priori | Date/Time | Associated Diagnosis | Comments | | | ty | | | | + +--------+ + + + | FL EPIDURAL STEROID | | 02/03/2012 | | Results for this | | INJECTION LUMBAR | | 3:29 PM | | procedure are in the | | TRANSFORAMINAL | | PDT | | results section. | + +--------+ + + + documented in this encounter Results FL ADELIA Lumbar Transforaminal (02/03/2012 3:29 PM PDT) + + | Specimen | + + | | + + + + + | Narrative | Performed At | + + + | [facility] Diagnostic Imaging Department | [facility] | | [address] | [facility] | | PROCEDURE: EPIDURAL STEROID | DIAG IMG | | INJECTION ICD-9 code 724.4 lumbar radiculitis. Ms. White | | | Yris presents to the fluoroscopy suite for fluoroscopically | | | guided bilateral L5-S1 transforaminal epidural steroid injections as | | | part of conservative management for chronic pain with lumbar | | | radiculopathy and degenerative disc disease. After informed | | | consent was obtained, the patient lay in a prone position on the | | | fluoroscopy table. The areas were identified under fluoroscopic | | | guidance. The areas were prepped and draped in a sterile fashion. | | | A 25-gauge 1.5-inch needle was inserted into each region and | | | approximately 3 mL of buffered 1% lidocaine was infused. Then a | | | 22-gauge spinal needle was inserted into the posterior superior | | | transforaminal space bilaterally and advanced into the epidural | | | space under fluoroscopic guidance. Confirmation into the epidural | | | space was obtained with infusion of approximately 1 mL of Isovue | | | contrast, which showed epidural flow as well as nerve sheath flow, | | | then a combination of 2 mL of 1% lidocaine and 2 mL of 6 mg/ mL | | | Celestone was infused divided between the two sides. The patient | | | tolerated the procedure well without complications. Pre- and | | | postprocedure blood pressures were stable. The patient was given | | | verbal as well as written followup instructions. The patient | | | reported some improvement in pain symptoms postprocedure. Prior | | | to the start of the procedure the following were performed or | | | verified including correct patient identity, correct site and side | | | marked and visible, agreement on the procedure to be done, correct | | | patient positioning and an accurate procedure consent form, and any | | | safety precautions based on clinical history and/or medications have | | | been addressed. I personally performed the procedure above. | | | Dictated Date/Time: 02/03/2012 18:13 Transcribed Date/Time: | | | 02/03/2012 18:45 Gas Flow Regulator: <Electronically Signed | | | by Serafin Bautista MD> 02/14/12 0916 | | + + + + + | Procedure Note | + + | Juan, Rad Conversion - 11/30/2013 5:06 PM [facility] | | Diagnostic Imaging Department | | [address] | | | | | | | | PROCEDURE: EPIDURAL STEROID INJECTION | | | | ICD-9 code 724.4 lumbar radiculitis. | | | | Ms. Cindy Arndt presents to the fluoroscopy suite for fluoroscopically | | guided bilateral L5-S1 transforaminal epidural steroid injections as part of | | conservative management for chronic pain with lumbar radiculopathy and | | degenerative disc disease. After informed consent was obtained, the patient | | lay in a prone position on the fluoroscopy table. The areas were identified | | under fluoroscopic guidance. The areas were prepped and draped in a sterile | | fashion. A 25-gauge 1.5-inch needle was inserted into each region and | | approximately 3 mL of buffered 1% lidocaine was infused. Then a 22-gauge spinal | | needle was inserted into the posterior superior transforaminal space | | bilaterally and advanced into the epidural space under fluoroscopic guidance. | | Confirmation into the epidural space was obtained with infusion of | | approximately 1 mL of Isovue contrast, which showed epidural flow as well as | | nerve sheath flow, then a combination of 2 mL of 1% lidocaine and 2 mL of 6 mg/ | | mL Celestone was infused divided between the two sides. The patient tolerated | | the procedure well without complications. Pre- and postprocedure blood | | pressures were stable. The patient was given verbal as well as written | | followup instructions. The patient reported some improvement in pain symptoms | | postprocedure. | | | | Prior to the start of the procedure the following were performed or verified | | including correct patient identity, correct site and side marked and visible, | | agreement on the procedure to be done, correct patient positioning and an | | accurate procedure consent form, and any safety precautions based on clinical | | history and/or medications have been addressed. | | | | I personally performed the procedure above. | | | | Dictated Date/Time: 02/03/2012 18:13 | | Transcribed Date/Time: 02/03/2012 18:45 | | Gas Flow Regulator: LaMAHIN | | <Electronically Signed by Serafin Bautista MD> 02/14/12 0916 | + + + +---------+ + + | Performing | Address | City/State/Zipcode | Phone Number | | Organization | | | | + +---------+ + + | [place] | | | | | [facility] | | | | + +---------+ + + documented in this encounter Visit Diagnoses Not on filedocumented in this encounter"
--- OUTSIDE RECORDS SUMMARY | ~2019-10-11 | XMS | Encounter Summary ---
Demographics + + + | Address | [address] | | | [place] [address] | + + + | Home Phone | | + + + | Preferred Language | Unknown | + + + | Marital Status | | + + + | Jainism Affiliation | 1013 | + + + | Race | Unknown | + + + | Ethnic Group | Unknown | + + + Author + + + | Author | [facility] | | | and [place] | + + + | Organization | [facility] | | | and [place] | + + + | Address | Unknown | + + + | Phone | Unavailable | + + + Support + + + + + | Name | Relationship | Address | Phone | + + + + + | Araceli Sibley | ECON | [place] | | | | | [address] | | + + + + + Care Team Providers + +------+ + | Care Managing Supervisor Name | Role | Phone | + +------+ + | Natalee Andersen NP | PCP | | + +------+ + Reason for Referral Evaluate & Treat (Routine) +--------+ + + + + + | Status | Reason | Specialty | Diagnoses / | Referred By | Referred To | | | | | Procedures | Contact | Contact | +--------+ + + + + + | Closed | Specialty | Physical | Diagnoses | Bri[facility], | | | | Services | Therapy | Lumbar | Frandy Simons DO | | | | Required | | spondylosis | [address] | | | | | | S/P lumbar | [address] | | | | | | fusion | [place] | | | | | | | [address] | | | | | | | Phone: | | | | | | | [phone] | | | | | | | Fax: | | | | | | | [phone] | | +--------+ + + + + + Reason for Visit + + + | Reason | Comments | + + + | Follow-up | 3 mo po | + + + Encounter Details +--------+---------+ + + + | Date | Type | Department | Care Team | Description | +--------+---------+ + + + | 09/27/ | Office | [facility] | Frandy Teresa, | Lumbar spondylosis | | 2013 | Visit | NEUROSURGERY [address] | DO [address] | (Primary Dx); S/P | | | | [address] | [address] [place], [place] | lumbar fusion | | | | [place], [place] | [address] | | | | | [address] | | | | | | [phone] | | | +--------+---------+ + + + [...] + + + | Blood Pressure | 122/70 | 09/27/2014 11:00 AM | | | | | PST | | + + + + + | Pulse | 68 | 09/27/2014 11:00 AM | | | | | PST | | + + + + + | Temperature | - | - | | + + + + + | Respiratory Rate | 18 | 09/27/2014 11:00 AM | | | | | PST | | + + + + + | Oxygen Saturation | - | - | | + + + + + | Inhaled Oxygen | - | - | | | Concentration | | | | + + + + + | Weight | 129.7 kg (286 lb) | 09/27/2014 11:00 AM | | | | | PST | | + + + + + | Height | 170.2 cm (5' 7") | 09/27/2014 11:00 AM | | | | | PST | | + + + + + | Body Mass Index | 44.79 | 09/27/2014 11:00 AM | | | | | PST | | + + + + + documented in this encounter Patient Instructions Patient Instructions Frandy Teresa DO - 09/27/2014 11:26 AM PSTPlease undergo new x-rays of the lumbar spine in 3 and 9 months. Please follow-up with me as needed. documented in this encounter Progress Notes Frandy Teresa DO - 09/27/2014 11:27 AM PSTFormatting of this note might be different fro m the original. Frandy Teresa DO [address] [place] [address] FAX: NEUROSURGERY FOLLOW-UP CHIEF COMPLAINT: Chief Complaint Patient presents with Follow-up 3 mo po HISTORY OF PRESENT ILLNESS: The patient is a 59 y.o. female that had a TLIF L5-S1 by me fo r back pain, leg pain, and weakness around 3 months ago . She returns and overall is doing well. The patient complains of mild back and leg pain, but it is significantly improved. Tana hayward is no longer walking with a cane; she had used one for three years prior to surgery. The patient is still taking minimal narcotics for pain management. The patient has been walking as directed and has tried to remain active. Overall, the patient is pleased with her impro vement. PAST MEDICAL HISTORY: Past Medical History Diagnosis Date GERD (gastroesophageal reflux disease) Chronic lumbar pain Mononeuritis SCALP Hypertension Hyperlipidemia Dermatitis Edema Obesity Bipolar 1 disorder (HCC) PVC (premature ventricular contraction) DDD (degenerative disc disease), lumbar Fatty liver disease, nonalcoholic Somatic dysfunction of spine, sacral Chest pain Hypothyroidism Gastritis 03/30/13 egd,biopsies negative Neuropathy Stomach ulcer Schizophrenia (HCC) Migraine Gastric reflux Depression Anxiety Anemia Irregular heartbeat Diabetes mellitus (HCC) type 2 Obstructive sleep apnea uses CPAP PONV (postoperative nausea and vomiting) HTN (hypertension) Sprain of ankle and foot PAST SURGICAL HISTORY: Past Surgical History Procedure Date Jorje placement tibia 2001 RIGHT Cholecystectomy 1998 Mastectomy, partial 1996 lt breast, for abcesses Hysterectomy 1992 TVH, Tonsillectomy Dilatation & curretage 1973 Gastric sleeve 2013 Lumbar laminectomy 07/02/2014 MIS L5-S1 TRANSFORAMINAL LUMBAR INTERBODY FUSION ; Laterality: N/A; Surgeon: Frandy castellanos DO; Location: [facility] CURRENT MEDICATIONS: Current Outpatient Prescriptions Medication Sig Dispense Refill asenapine (SAPHRIS) 10 [...] Place 2,500 mcg under the tongue Daily. diazepam (VALIUM) 5 mg tablet Take 1 tablet by mouth every 6 hours as needed. 60 table t 0 Digestive Enzymes (PAPAYA ENZYME PO) Take 2 capsules by mouth 3 times daily. divalproex (DEPAKOTE) 500 mg EC tablet 1250mg by mouth at bedtime fluocinonide (LIDEX) 0.05 % ointment Apply to affected area twice daily as needed gabapentin (NEURONTIN) 300 mg capsule Take 1 capsule by mouth 3 times daily. 90 capsul e 2 HYDROcodone-acetaminophen (NORCO) 10-325 mg per tablet Take 1-2 tablets by mouth every 4 hours as needed for Pain. 60 tablet 0 Lactulose SOLN Take 30 mLs by mouth every 6 hours as needed (Constipation). 240 mL 1 levothyroxine (SYNTHROID) 100 mcg tablet Take 100 [...] Take 15 mg by mouth nightl y. [place]-3 Fatty Acids (FISH OIL CONCENTRATE) 1000 MG [...] 1 Device 0 ALLERGIES: Allergies Allergen Reactions Erythromycin Nausea And Vomiting Fluoxetine Other (See Comments) "mind racing" Haloperidol Other (See Comments) "mind racing" Prochlorperazine Maleate Other (See Comments) Skin crawling/agitation Promethazine Hcl Other (See Comments) Skin crawling/agitation Topamax Other (See Comments) "mind racing and dellusions" Demerol Nausea And Vomiting Duloxetine Muscle weakness, profuse sweating Sulfa Antibiotics Rash SOCIAL HISTORY: The patient reports that she has never smoked. She has never used smokeless tobacco. She r eports that she does not drink alcohol or use illicit drugs. FAMILY HISTORY: Family History Problem Relation Age of Onset High blood pressure Mother High blood pressure Father Cancer Sister cervical Arthritis Mother Thyroid disease Mother Heart disease Mother Other (See Comment) Father lung disease Mental illness Father INTERIM PHYSICAL EXAMINATION: Blood pressure 122/70, pulse 68, resp. rate 18, height 1.702 m (5' 7"), weight 129.729 kg ( 286 lb). Body mass index is 44.78 kg/(m^2). GENERAL: Cindy Arndt is in no acute distress with unlabored respirations. SPINE: The patient s incisions are healing well without drainage, significant erythema, o r discharge EXTREMITIES: No lower extremity edema. NEUROLOGICAL EXAMINATION: MENTAL STATUS: The patient is awake, alert, and oriented. She follows simple and complex commands MOTOR EXAM: Motor strength is 4+/5. This is improved from the preoperative exam. SENSORY EXAM: The sensory examination improved from the preoperative exam. REFLEXES: Reflexes are unchanged from her preoperative history and physical. RADIOGRAPHIC REVIEW: The patient s postoperative x-rays show stable instrumentation and alignment and were rev iewed with the patient today. There have been no interval changes since the immediate posto perative films. Complete fusion has yet occurred, but this is normal and would not be expec cb at this time. ASSESSMENT: S/P TLIF L5-S1: Encounter Diagnoses Name Primary? Lumbar spondylosis Yes S/P lumbar fusion Past Medical History Diagnosis Date GERD (gastroesophageal reflux disease) Chronic lumbar pain Mononeuritis SCALP Hypertension Hyperlipidemia Dermatitis Edema Obesity Bipolar 1 disorder (HCC) PVC (premature ventricular contraction) DDD (degenerative disc disease), lumbar Fatty liver disease, nonalcoholic Somatic dysfunction of spine, sacral Chest pain Hypothyroidism Gastritis 03/30/13 egd,biopsies negative Neuropathy Stomach ulcer Schizophrenia (HCC) Migraine Gastric reflux Depression Anxiety Anemia Irregular heartbeat Diabetes mellitus (HCC) type 2 Obstructive sleep apnea uses CPAP PONV (postoperative nausea and vomiting) HTN (hypertension) Sprain of ankle and foot PLAN: Overall, the patient is doing well. I was pleased to see at least some further improvement and expect more improvement with time. This was discussed with the patient today. I have increased the patient s activities further, and I would like the patient to continue to ad short with activities as tolerated and as directed. She will undergo x-rays in 3 and 9 months and follow-up with me as needed. I will also reor davis physical therapy as she feels this has been helping her heal and would like to continue. ELECTRONICALLY SIGNED BY: Frandy Teresa DO, 09/27/2014 11:30 documented in this encounter Plan of Treatment +--------+---------+ + + + | Date | Type | Specialty | Care Team | Description | +--------+---------+ + + + | 04/10/ | Office | Cardiology | Desiree Peterson DO | | | 2020 | Visit | | [address] | | | | | | [place], [place] | | | | | | [address] | | | | | | | | +--------+---------+ + + + + +---------+--------+ + + | Name | Type | Priori | Associated Diagnoses | Order Schedule | | | | ty | | | + +---------+--------+ + + | XR Lumbar Spine 2 or | Imaging | Routin | Lumbar spondylosis | Expected: | | 3 Vw | | e | S/P lumbar fusion | 09/27/2014, Expires: | | | | | | 09/27/2015 | + +---------+--------+ + + | XR Lumbar Spine 2 or | Imaging | Routin | Lumbar spondylosis | Expected: | | 3 Vw | | e | S/P lumbar fusion | 09/27/2014, Expires: | | | | | | 09/27/2015 | + +---------+--------+ + + + + +--------+ + + | Name | Type | Priori | Associated Diagnoses | Order Schedule | | | | ty | | | + + +--------+ + + | Ambulatory referral | Outpatient | Routin | Lumbar spondylosis | 1 Occurrences | | to Physical Therapy | Referral | e | S/P lumbar fusion | starting 09/27/2014 | | | | | | until 09/27/2015 | + + +--------+ + + documented as of this encounter Visit Diagnoses + + | Diagnosis | + + | Lumbar spondylosis - Primary Lumbosacral spondylosis without myelopathy | + + | S/P lumbar fusion Arthrodesis status | + + documented in this encounter
--- OUTSIDE RECORDS SUMMARY | ~2019-10-11 | XMS | Encounter Summary ---
Demographics + + + | Address | [address] | | | [place] [address] | + + + | Home Phone | | + + + | Preferred Language | Unknown | + + + | Marital Status | | + + + | Baptism Affiliation | 1013 | + + + | Race | Unknown | + + + | Ethnic Group | Unknown | + + + Author + + + | Author | [facility] | | | and [place] | + + + | Organization | [facility] | | | and [place] | + + + | Address | Unknown | + + + | Phone | Unavailable | + + + Support + + + + + | Name | Relationship | Address | Phone | + + + + + | Araceli Sibley | ECON | [place], [place] | | | | | [address] | | + + + + + Care Team Providers + +------+ + | Care Summer Internship Name | Role | Phone | + +------+ + PCP | Unavailable | + +------+ + Encounter Details +--------+ + + + + | Date | Type | Department | Care Team | Description | +--------+ + + + + | 05/25/ | Hospital | [facility] | | | | 1991 | Encounter | MED CTR LABORATORY | | | | | | [address] | | | | | | [place] | | | | | | [address] | | | | | | [phone] | | | +--------+ + + + [...] | | | | | [place] | | | | | | [address] | | | | | | | | +--------+---------+ + + + documented as of this encounter Visit Diagnoses Not on filedocumented in this encounter"
--- OUTSIDE RECORDS SUMMARY | ~2019-10-11 | XMS | Encounter Summary ---
Demographics + + + | Address | [address] | | | [place] [address] | + + + | Home Phone [...] [place] | | | | | [address] | | + + + + + Care Team Providers + +------+ + | Care Under Cutting Machine Operator Name | Role | Phone [...] + + | 09/10/ | Documentati | [facility] | Katharine Moncada, | Other (urgent | | 2019 | on | CARDIOLOGY [place] | Technologist | report) | | | | [address] | | | | | | [place] | | | | | | [address] | | | | | | [phone] | | | +--------+ + + + [...] Progress Notes Katharine Moncada, Technologist - 09/10/2019 10:47 AM PSTReceived urgent report 09/10/19 Pt had a self triggered 08/26/19 at 22:35 103 BPM, activity: none 30 day monitor was placed 08/09/19 Medication:metFORMIN (GLUCOPHAGE-XR) 500 mg 24 hr tablet Will [...] [place] | | | | | | [id number] | | | | | | | | +--------+---------+ + + + documented as of this encounter Visit Diagnoses Not on filedocumented in this encounter"
--- OUTSIDE RECORDS SUMMARY | ~2019-10-11 | XMS | Encounter Summary ---
Demographics + + + | Address | [address] | | | [place] [address] | + + + | Home Phone | | + + + | Preferred Language | Unknown | + + + | Marital Status | | + + + | Restorationist Affiliation | 1013 | + + + | Race | Unknown | + + + | Ethnic Group | Unknown | + + + Author + + + | Author | [facility] | | | and [place] | + + + | Organization | [facility] | | | and [place] | + + + | Address | Unknown | + + + | Phone | Unavailable | + + + Support + + + + + | Name | Relationship | Address | Phone | + + + + + | Araceli Sibley | ECON | [place] | | | | | [address] | | + + + + + Care Team Providers + +------+ + | Care Project Leader Name | Role | Phone | + [...] | +--------+ + + + + | 08/15/ | Documentati | [facility] | Katharine Moncada, | Other (urgent | | 2019 | on | CARDIOLOGY [place] | Technologist | report) | | | | [address] | | | | | | [place] | | | | | | [address] | | | | | | [phone] | | | +--------+ + + + [...] encounter Progress Notes Katharine Moncada, Technologist - 08/15/2019 8:05 AM PDTReceived urgent report 08/15/19 Pt had a self triggered urgent report 08/14/19 at 16:03 115 BPM, 119 s after low activity 30 day monitor was placed 08/09/19 No medications Called pt and she is tired and has shortness of breath Will continue to monitor Please see attachment [...] [place] | | | | | | [address] | | | | | | | | +--------+---------+ + + + documented as of this encounter Visit Diagnoses Not on filedocumented in this encounter"
--- OUTSIDE RECORDS SUMMARY | ~2019-10-11 | XMS | Encounter Summary ---
Demographics + + + | Address | [address] | | | [place] [address] | + + + | Home Phone | | + + + | Preferred Language | Unknown | + + + | Marital Status | | + + + | Zoroastrianism Affiliation | 1013 | + + + | Race | Unknown | + + + | Ethnic Group | Unknown | + + + Author + + + | Author | [facility] | | | and [place] | + + + | Organization | [facility] | | | and [place] | + + + | Address | Unknown | + + + | Phone | Unavailable | + + + Support + + + + + | Name | Relationship | Address | Phone | + + + + + | Araceli Sibley | ECON | [place], [place] | | | | | [address] | | + + + + + Care Team Providers + +------+ + | Care Conveyor Operator Name | Role | Phone | + +------+ + PCP | Unavailable | + +------+ + Encounter Details +--------+ + + + + | Date | Type | Department | Care Team | Description | +--------+ + + + + | 01/25/ | Hospital | [facility] | | | | 2002 | Encounter | MED CTR XRAY [address] | | | | | | [address] | | | | | | [place] [address] | | | | | | [phone] | | | +--------+ + + + [...] | | | | | [place] | | | | | | [address] | | | | | | | | +--------+---------+ + + + documented as of this encounter Visit Diagnoses Not on filedocumented in this encounter"
--- OUTSIDE RECORDS SUMMARY | ~2019-10-11 | XMS | Encounter Summary ---
Demographics + + + | Address | [address] | | | [place] [address] | + + + | Home Phone | | + + + | Preferred Language | Unknown | + + + | Marital Status | | + + + | Adventism Affiliation | 1013 | + + + | Race | Unknown | + + + | Ethnic Group | Unknown | + + + Author + + + | Author | [facility] | | | and [place] | + + + | Organization | [facility] | [...] [place], [place] | | | | | [address] | | + + + + + Care Team Providers + +------+ + | Care Rigger Helper Name | Role | Phone | + +------+ + PCP | Unavailable | + +------+ + Encounter Details +--------+ + + + + | Date | Type | Department | Care Team | Description | +--------+ + + + + | 06/30/ | Hospital | [facility] | | | | 1999 - | Encounter | MED CTR GENERIC PSY | | | | | | CONV DEPT [address] | | | | 07/05/ | | [address] [place], | | | | 1999 | | [place] [address] | | | | | | [phone] | | | +--------+ + + + [...] [place] | | | | | | [address] | | | | | | | | +--------+---------+ + + + documented as of this encounter Visit Diagnoses Not on filedocumented in this encounter"
--- OUTSIDE RECORDS SUMMARY | ~2019-10-11 | XMS | Encounter Summary ---
Demographics + + + | Address | [address] | | | [place] [address] | + + + | Home Phone | | + + + | Preferred Language | Unknown | + + + | Marital Status | | + + + | Rastafarian Affiliation | 1013 | + + + | Race | Unknown | + + + | Ethnic Group | Unknown | + + + Author + + + | Author | [facility] | | | and [place] | + + + | Organization | [facility] | | | and [place] | + + + | Address | Unknown | + + + | Phone | Unavailable | + + + Support + + + + + | Name | Relationship | Address | Phone | + + + + + | Araceli Sibley | ECON | [place] | | | | | [address] | | + + + + + Care Team Providers + +------+ + | Care Line Camera Operator Name | Role | Phone | [...] | +--------+ + + + + | 08/22/ | Documentati | [facility] | Katharine Moncada, | Other (urgent | | 2019 | on | CARDIOLOGY [place] | Technologist | report) | | | | [address] | | | | | | [place] | | | | | | [address] | | | | | | [phone] | | | +--------+ + + + [...] encounter Progress Notes Katharine Moncada, Technologist - 08/22/2019 8:00 AM PDTReceived urgent report 08/22/19 Pt had a self triggered 08/20/19 at 13:16 95 BPM 30 day monitor was placed 08/09/19 No [...] [place] | | | | | | [address] | | | | | | | | +--------+---------+ + + + documented as of this encounter Visit Diagnoses Not on filedocumented in this encounter"
--- OUTSIDE RECORDS SUMMARY | ~2019-10-11 | XMS | Encounter Summary ---
Demographics + + + | Address | [address] | | | [place] [address] | + + + | Home Phone | | + + + | Preferred Language | Unknown | + + + | Marital Status | | + + + | Evangelical Affiliation | 1013 | + + + [...] [place], [place] | | | | | [address] | | + + + + + Care Team Providers + +------+ + | Care Edi Architect Name | Role | Phone | + +------+ + PCP | Unavailable | + +------+ + Encounter Details +--------+ + + + + | Date | Type | Department | Care Team | Description | +--------+ + + + + | 04/16/ | [facility] | [facility] | Deon Gonzales | | | 2005 | Encounter | MED CTR SLEEP | MD [place] | | | | | [place] [address] | [address] [place] | | | | | [place], [place] | [place] [address] | | | | | [address] | [phone] | | | | | [phone] | | | +--------+ + + + [...] [place] | | | | | | [address] | | | | | | | | +--------+---------+ + + + documented as of this encounter Visit Diagnoses Not on filedocumented in this encounter"
--- OUTSIDE RECORDS SUMMARY | ~2019-10-11 | XMS | Encounter Summary ---
Demographics + + + | Address | [address] | | | [place] [address] | + + + | Home Phone | | + + + | Preferred Language | Unknown | + + + | Marital Status | | + + + | Mu-Ism Affiliation | 1013 | + + + [...] [place], [place] | | | | | [address] | | + + + + + Care Team Providers + +------+ + | Care Seafood Specialist Name | Role | Phone | + +------+ + PCP | Unavailable | + +------+ + Encounter Details +--------+ + + + + | Date | Type | Department | Care Team | Description | +--------+ + + + + | 12/27/ | Hospital | [facility] | | | | 1997 | Encounter | MED CTR EMERGENCY | | | | | | [address] | | | | | | [place] | | | | | | [address] | | | | | | [phone] | | | +--------+ + + + [...] | | | | | [place] | | | | | | [address] | | | | | | | | +--------+---------+ + + + documented as of this encounter Visit Diagnoses Not on filedocumented in this encounter"
--- OUTSIDE RECORDS SUMMARY | ~2019-10-11 | XMS | Clinical Summary ---
Demographics + + + | Address | [address] | | | [place] [address] | + + + | Home Phone | | + + + | Preferred Language | Unknown | + + + | Marital Status | | + + + | Mosque Affiliation | 1013 | + + + | Race | Unknown | + + + | Ethnic Group | Unknown | + + + Author + + + | Author | [facility] | | | and [place] | + + + | Organization | [facility] | | | and [place] | + + + | Address | Unknown | + + + | Phone | Unavailable | + + + Support + + + + + | Name | Relationship | Address | Phone | + + + + + | Araceli Sibley | ECON | [place] | | | | | [address] | | + + + + + Care Team Providers + +------+ + | Care Technology Lead Name | Role | Phone | + +------+ + | Adriano Patrick MD | PCP | | + +------+ + Allergies + + + + + + | Active Allergy | Reactions | Severity | Noted | Comments | | | | | Date | | + + + + + + | Cyclobenzaprine | Hallucination | Low | 02/21/20 | | | | | | 19 | | + + + + + + | Demerol | Nausea And Vomiting | | | | + + + + + + | Duloxetine | Other (See Comments) | Medium | 03/31/20 | Muscle weakness, | | | | | 12 | profuse sweating | | | | | | Diaphoresis, and | | | | | | complete muscle | | | | | | weakness. | + + + + + + | Erythromycin | Nausea And Vomiting | Medium | 03/31/20 | | | | | | 12 | | + + + + + + | Fluoxetine | Other (See Comments) | Medium | 02/21/20 | "mind racing" | | | | | 19 | Mind was racing | + + + + + + | Haloperidol | Other (See Comments) | Medium | 02/21/20 | "mind racing" | | | | | 19 | Mind altering | + + + + + + | Meperidine | Nausea And Vomiting | Low | 02/21/20 | | | | | | 19 | | + + + + + + | Prochlorperazine | Other (See Comments) | Medium | 02/21/20 | Made her feel | | | | | 19 | hyper/jittery | + + + + + + | Prochlorperazine | Other (See Comments) | Medium | | Skin | | Maleate | | | | crawling/agitation | + + + + + + | Promethazine | Other (See Comments) | Medium | 02/21/20 | Makes her skin | | | | | 19 | crawl | + + + + + + | Promethazine Hcl | Other (See Comments) | Medium | | Skin | | | | | | crawling/agitation | + + + + + + | Sulfa Antibiotics | Rash, Hives | High | 02/21/20 | | | | | | 19 | | + + + + + + | Topamax | Other (See Comments) | Medium | | "mind racing and | | | | | | dellusions" | + + + + + + Medications + + + +---------+------+------+-------+ | Medication | Sig | Dispensed | Refills | Star | End | Statu | | | | | | t | Date | s | | | | | | Date | | | + + + +---------+------+------+-------+ | Cholecalciferol | Take 50,000 Units by | | 0 | | | Activ | | (VITAMIN D-3) 23458 | mouth Once a week. | | | | | e | | units CAPS | | | | | | | + + + +---------+------+------+-------+ | levothyroxine | Take 112 mcg by | | 0 | | | Activ | | (SYNTHROID) 137 mcg | mouth every morning | | | | | e | | tablet | (before breakfast). | | | | | | + + + +---------+------+------+-------+ | OLANZapine | Take 20 mg by mouth | | 0 | | | Activ | | (ZYPREXA) 20 MG | nightly. | | | | | e | | tablet | | | | | | | + + + +---------+------+------+-------+ | metFORMIN | Take 1 tablet by | 90 | 3 | 05/ | | Activ | | (GLUCOPHAGE-XR) 500 | mouth daily (with | tablet | | 7/20 | | e | | mg 24 hr | breakfast). | | | 15 | | | | tabletIndications: | | | | | | | | Type 2 diabetes | | | | | | | | mellitus, controlled | | | | | | | | ([facility]) | | | | | | | + + + +---------+------+------+-------+ +---+ + | | Additional | | | informationPatient | | | taking differently: | | | 1,000 mg Oral 2 | | | TIMES DAILY, | | | Reported on | | | 07/19/2019 10:39 AM | +---+ + + + +--------+---+------+------+-------+ | B Complex Vitamins | Take by mouth. | | 0 | | | Activ | | (VITAMIN B COMPLEX | | | | | | e | | PO) | | | | | | | + + +--------+---+------+------+-------+ | acetaminophen | Take 325 mg by mouth | | 0 | | | Activ | | (TYLENOL) 325 mg | every 6 (six) hours | | | | | e | | tablet | as needed for Pain. | | | | | | + + +--------+---+------+------+-------+ | albuterol 90 | Inhale 2 puffs into | | 0 | | | Activ | | mcg/puff inhaler | the lungs every 4 | | | | | e | | | (four) hours as | | | | | | | | needed for Wheezing. | | | | | | + + +--------+---+------+------+-------+ | amitriptyline | Take 50 mg by mouth | | 0 | | | Activ | | (ELAVIL) 50 mg | nightly. | | | | | e | | tablet | | | | | | | + + +--------+---+------+------+-------+ | Blood Glucose | by Does not apply | | 0 | | | Activ | | Monitoring Suppl | route. | | | | | e | | ([employer] VERIO FLEX | | | | | | | | SYSTEM) w/Device | | | | | | | | KIT | | | | | | | + + +--------+---+------+------+-------+ | | Inhale 2 puffs into | | 0 | | | Activ | | budesonide-formotero | the lungs 2 (two) | | | | | e | | l (SYMBICORT) | times daily. | | | | | | | 160-4.5 mcg/puff | | | | | | | | inhaler | | | | | | | + + +--------+---+------+------+-------+ | clonazePAM | Take 0.5 mg by mouth | | 0 | | | Activ | | (KLONOPIN) 0.5 mg | 2 (two) times daily | | | | | e | | tablet | as needed for | | | | | | | | Anxiety. | | | | | | + + +--------+---+------+------+-------+ | ibuprofen | Take 800 mg by mouth | | 0 | | | Activ | | (ADVIL,MOTRIN) 800 | every 8 hours as | | | | | e | | MG tablet | needed. | | | | | | + + +--------+---+------+------+-------+ | calcium carbonate | Take 1,000 mg by | | 0 | | | Activ | | antacid (TUMS ULTRA | mouth 3 (three) | | | | | e | | 1000) 1000 MG CHEW | times daily. | | | | | | + + +--------+---+------+------+-------+ | Multiple | Take 1 tablet by | | 0 | | | Activ | | Vitamins-Minerals | mouth Daily. | | | | | e | | (ADULT MULTIVITAMIN | chewable | | | | | | | WITH MINERALS/IRON) | | | | | | | | TABS | | | | | | | + + +--------+---+------+------+-------+ | pantoprazole | Take 20 mg by mouth | | 0 | | | Activ | | (PROTONIX) 20 mg | 2 times daily | | | | | e | | tablet | (before meals). | | | | | | + + +--------+---+------+------+-------+ | glipiZIDE | Take 5 mg by mouth | | 0 | | | Activ | | (GLUCOTROL) 5 mg | every morning | | | | | e | | tablet | (before breakfast). | | | | | | + + +--------+---+------+------+-------+ | potassium chloride | Take 10 mEq by mouth | | 0 | | | Activ | | (KLOR-CON) 10 MEQ | 2 times daily. | | | | | e | | ER tablet | | | | | | | + + +--------+---+------+------+-------+ | metoprolol | Take 1 tablet by | 30 | 5 | 12/1 | | Activ | | succinate | mouth Daily. | tablet | | 2/20 | | e | | (TOPROL-XL) 50 mg 24 | | | | 19 | | | | hr tablet | | | | | | | + + +--------+---+------+------+-------+ | atenolol | Take 50 mg by mouth | | 0 | | 09/23 | Disco | | (TENORMIN) 50 mg | daily. | | | | 12/13 | ntinu | | tablet | | | | | 19 | ed | + + +--------+---+------+------+-------+ Active Problems + + + | Problem | Noted Date | + + + | Lumbar back pain | 02/22/2019 | + + + | Bradycardia | 11/04/2015 | + + + | Schizoaffective disorder, bipolar type | 03/09/2015 | + + + | ROGERS on CPAP | 03/09/2015 | + + + | Benign essential HTN | 05/24/2014 | + + + | Chest pain | 05/24/2014 | + + + + + | Overview: replaced due to ICD-10 go-live | + + + + + | Dyslipidemia | 04/13/2013 | + + + | Fatty liver disease, nonalcoholic | 04/13/2013 | + + + | Female stress incontinence | 04/13/2013 | + + + | Morbid obesity | 04/13/2013 | + + + | Obstructive sleep apnea syndrome | 04/13/2013 | + + + + + | Overview: CPAP | + + + + + | Bipolar affective disorder | 04/13/2013 | + + + | Schizoaffective disorder | 04/13/2013 | + + + | T2DM (type 2 diabetes mellitus) | 04/13/2013 | + + + | Obesity, Class III, BMI 40-49.9 (morbid obesity) | 06/06/2012 | + + + | HYPERLIPIDEMIA | 03/29/2012 | + + + | SINUSITIS | 03/29/2012 | + + + | Type 2 diabetes mellitus, controlled | 03/29/2012 | + + + | OBSTRUCTIVE SLEEP APNEA | 02/28/2012 | + + + | OSTEOARTHRITIS, KNEES, BILATERAL | 01/27/2012 | + + + | LUMBAR DISC DISPLACEMENT | | + + + | HYPERTENSION | | + + + | HYPOTHYROIDISM | | + + + | GERD | | + + + | BACK PAIN, LUMBAR, WITH RADICULOPATHY | | + + + | IMPAIRED FASTING GLUCOSE | | + + + | SCHIZOAFFECTIVE DISORDER, BIPOLAR | | + + + | KNEE PAIN, BILATERAL | | + + + | DEGENERATIVE DISC DISEASE, LUMBAR SPINE | | + + + | BACK PAIN, LUMBAR | | + + + | SOMATIC DYSFUNCTION, SPINE, SACRAL | | + + + | DISTURBANCE OF SKIN SENSATION | | + + + | SPINAL STENOSIS, LUMBAR | | + + + | Neuropathy | | + + + | Stomach ulcer | | + + + | Gastric reflux | | + + + | Anxiety | | + + + | Anemia | | + + + | Irregular heartbeat | | + + + | Depression | | + + + | Migraine | | + + + | Schizophrenia | | + + + | Neuropathy | | + + + | Sleep apnea | | + + + | Stroke | | + + + | Thyroid disease | | + + + Encounters +--------+ + + + + | Date | Type | Specialty | Care Team | Description | +--------+ + + + + | 10/04/ | Office | Cardiology | Nicholas DesireeDO | ROGERS on CPAP (Primary | | 2019 | Visit | | | Dx); Morbid obesity | | | | | | (HCC); Benign | | | | | | essential HTN; | | | | | | Atrial fibrillation, | | | | | | unspecified type | | | | | | (HCC) | +--------+ + + + + | 09/19/ | Telephone | Cardiology | Ashley Chávez | Other (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 ) | +--------+ + + + + | 09/10/ | Documentati | Cardiology | Katharine Moncada, | Other (urgent | | 2018 | on | | Technologist | report) | +--------+ + + + + | 09/10/ | Documentati | Cardiology | Katharine Moncada, | Other (urgent | | 2019 | on | | Technologist | report) | +--------+ + + + + | 09/10/ | Documentati | Cardiology | Katharine Moncada, | Other (urgent | 2018 | on | | Technologist | report) | +--------+ + + + + | 09/10/ | Documentati | Cardiology | Katharine Moncada, | Other (urgent | 2018 | on | | Technologist | report) | +--------+ + + + + | 09/10/ | Documentati | Cardiology | Katharine Moncada, | Other (urgent | 2018 | on | | Technologist | report) | +--------+ + + + + | 09/10/ | Documentati | Cardiology | Katharine Moncada, | Other (urgent | 2018 | on | | Technologist | report) | +--------+ + + + + | 08/30/ | Telephone | Cardiology | Ashley Chávez | Other (Patient wants | | 2018 | | | D, 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 ) | +--------+ + + + + | 08/24/ | Documentati | Cardiology | Katharine Moncada, | Other (urgent | 2018 | on | | Technologist | report) | +--------+ + + + + | 08/22/ | Documentati | Cardiology | Katharine Moncada, | Other (urgent | 2018 | on | | Technologist | report) | +--------+ + + + + | 08/21/ | Documentati | Cardiology | Katharine Moncada, | Other (urgent | 2018 | on | | Technologist | report) | +--------+ + + + + | 08/20/ | Documentati | Cardiology | Katharine Moncada, | Other (urgent | 2018 | on | | Technologist | report) | +--------+ + + + + | 08/20/ | Documentati | Cardiology | Katharine Moncada, | Other (urgent | 2018 | on | | Technologist | report) | +--------+ + + + + | 08/20/ | Documentati | Cardiology | Katharine Moncada, | Other (urgent | | 2018 | on | | Technologist | report) | +--------+ + + + + | 08/20/ | Documentati | Cardiology | Katharine Moncada, | Other (urgent | 2018 | on | | Technologist | report) | +--------+ + + + + | 08/20/ | Documentati | Cardiology | Katharine Moncada, | Other (urgent | 2018 | on | | Technologist | report) | +--------+ + + + + | 08/20/ | Documentati | Cardiology | Katharine Moncada, | Other (urgent | 2018 | on | | Technologist | report) | +--------+ + + + + | 08/16/ | Telephone | Cardiology | Ashley Chávez | Other (Called to | 2018 | | | D, Paint Laboratory Technician | tell patient what | | | | | | Nicholas said. ) | +--------+ + + + + | 08/16/ | Documentati | Cardiology | Katharine Moncada, | Other (urgent | 2018 | on | | Technologist | report) | +--------+ + + + + | 08/16/ | Documentati | Cardiology | Katharine Moncada, | Other (urgent | 2018 | on | | Technologist | report) | +--------+ + + + + | 08/15/ | Documentati | Cardiology | Katharine Moncada, | Other (urgent | 2018 | on | | Technologist | report) | +--------+ + + + + | 08/15/ | Documentati | Cardiology | Katharine Moncada, | Other (urgent | 2018 | on | | Technologist | report) | +--------+ + + + + | 08/15/ | Documentati | Cardiology | Katharine Moncada, | Other (urgent | 2018 | on | | Technologist | report) | +--------+ + + + + | 08/15/ | Documentati | Cardiology | Katharine Moncada, | Other (urgent | | 2018 | on | | Technologist | report) | +--------+ + + + + | 08/14/ | Telephone | Cardiology | Ashley Chávez | Other (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 ) | +--------+ + + + + | 08/14/ | Documentati | Cardiology | Katharine Moncada, | Other (urgent | | 2018 | on | | Technologist | report) | +--------+ + + + + | 08/13/ | Documentati | Cardiology | Katharine Moncada, | Other (urgent | | 2018 | on | | Technologist | report) | +--------+ + + + + | 08/13/ | Documentati | Cardiology | Katharine Moncada, | Other (urgent | | 2018 | on | | Technologist | report) | +--------+ + + + + | 08/09/ | Clinical | Cardiology | Desiree Peterson DO | Syncope, unspecified | 2018 | Support | | Dora De La Torre | syncope type | | | | | CAROLINE Mendez | | +--------+ + + + + | 08/09/ | Documentati | Cardiology | Katharine Moncada, | Other (end of study) | | 2018 | on | | Technologist | | +--------+ + + + + | 08/08/ | Telephone | Cardiology | Ashley Chávez | Other (Questions | | 2018 | | | [place], Paint Laboratory Technician | about coverage. 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 ) | +--------+ + + + + | 07/19/ | Office | Cardiology | Desiree Peterson DO | Syncope, unspecified | | 2018 | Visit | | | syncope type | | | | | | (Primary Dx); | | | | | | Essential | | | | | | hypertension; | | | | | | Irregular heartbeat | +--------+ + + + + from Last 3 Months Immunizations + + + + | Name | Administration Dates | Next Due | + + + + | PNEUMOCOCCAL | 05/29/2013 | | | POLYSACCHARIDE | | | | 23-VALENT (PPSV23) | | | + + + + Family History + + +------+ + | Medical History | Relation | Name | Comments | + + +------+ + | Diabetes | Father | | | + + +------+ + | Heart disease | Father | | | + + +------+ + | High blood pressure | Father | | | + + +------+ + | Hypertension | Father | | | + + +------+ + | Mental illness | Father | | | + + +------+ + | Other (see comment) | Father | | lung disease | + + +------+ + | Stroke | Father | | | + + +------+ + | Arthritis | Mother | | | + + +------+ + | Heart disease | Mother | | | + + +------+ + | High blood pressure | Mother | | | + + +------+ + | Hypertension | Mother | | | + + +------+ + | Thyroid disease | Mother | | | + + +------+ + | Cancer | Sister | | cervical | + + +------+ + + +------+ + + | Relation | Name | Status | Comments | + +------+ + + | Father | | Alive | | + +------+ + + | Mother | | Alive | | + +------+ + + | Sister | | | | + +------+ + + Social History + +-------+ +--------+------+ [...] recent travel history available. | + + Last Filed Vital Signs + + + + + | Vital Sign | Reading | Time Taken | Comments | + + + + + | Blood Pressure | 116/70 | 10/04/2019 10:55 AM | | | | | PST | | + + + + + | Pulse | 86 | 10/04/2019 10:55 AM | | | | | PST | | + + + + + | Temperature | 37.1 C (98.8 F) | 03/06/2015 9:06 AM | | | | | PDT | | + + + + + | Respiratory Rate | 20 | 07/06/2015 5:07 PM | | | | | PDT | | + + + + + | Oxygen Saturation | 94% | 10/04/2019 10:55 AM | | | | | PST | | + + + + + | Inhaled Oxygen | - | - | | | Concentration | | | | + + + + + | Weight | 134.7 kg (297 lb) | 10/04/2019 10:55 AM | | | | | PST | | + + + + + | Height | 170.2 cm (5' 7") | 10/04/2019 10:55 AM | | | | | PST | | + + + + + | Body Mass Index | 46.52 | 10/04/2019 10:55 AM | | | | | PST | | + + + + + Plan of Treatment +--------+---------+ + + + | Date | Type | Specialty | Care Team | Description | +--------+---------+ + + + | 04/10/ | Office | Cardiology | Desiree Peterson | | | 2019 | Visit | | [address] | | | | | | [place] | | | | | | [address] | | | | | | | | +--------+---------+ + + + + + + + + | Health Maintenance | Due Date | Last Done | Comments | + + + + + | Hepatitis C | | | | | Screening | 5 | | | + + + + + | Diabetic Eye Exam | | | | | | 3 | | | + + + + + | Diabetic Foot Exam | | | | | | 3 | | | + + + + + | Vaccine: | | | | | Dtap/Tdap/Td (1 - | 4 | | | | Tdap) | | | | + + + + + | Colorectal Cancer | | | | | Screening | 5 | | | | (Colonoscopy) | | | | + + + + + | Vaccine: Zoster (1 | | | | | of 2) | 5 | | | + + + + + | Breast Cancer | | | | | Screening | 0 | | | + + + + + | Hemoglobin A1c | | 07/29/2014 | | | Screening | 5 | | | + + + + + | Adult Annual | | | | | Wellness Visit | 9 | | | + + + + + | Microalbumin | | | | | Screening | 9 | | | + + + + + | Statin Therapy | | | | | (optimal intensity) | 9 | | | + + + + + | Vaccine: Influenza | | | | | (#1) | 9 | | | + + + + + | Vaccine: | Completed | 05/29/2013 | | | Pneumococcal 19-64 | | | | + + + + + Implants + +------+--------+ +--------+--------+--------+ | Implanted | Type | Area | Manufacture | Device | Shelf | Model | | | | | r | | Expira | / | | | | | | Identi | tion | Serial | | | | | | fier | Date | / Lot | + +------+--------+ +--------+--------+--------+ | Cancellous Chips | | N/A: | [employer] - | | 04/02/ | [id number] | | 5ccImplanted: Qty: 1 on | | Spine | MEDT | | 2019 | | | 07/02/2014 by Frandy Teresa | | Lumbar | | | | /[id number] | | A, DO at [facility] | | | | | | 6-020 | | [facility] | | | | | | / | + +------+--------+ +--------+--------+--------+ | Graft Infuse Bone Kit Xxs - | | N/A: | [employer]OR | | 01/21/ | [id number] | | [id number]: Qty: 1 on | | Spine | DANEK - DIV | | 2014 | 0 / | | 07/02/2014 by Frandy Teresa | | Lumbar | [employer] | | | /[id number] | | A, DO at [facility] | | | - [facility] | | | [id number] | | [facility] | | | | | | | + +------+--------+ +--------+--------+--------+ | Imp Spn Spcr Cpstn 8x26mm - | | N/A: | SO[employer]OR | | 01/11/ | [id number] | | [id number]: Qty: 1 on | | Spine | DANEK - DIV | | 2 | 6 / | | 07/02/2014 by Frandy Teresa | | Lumbar | [employer] | | | /[id number] | | DO Ronak at [facility] | | | - [facility] | | | 928 | | [facility] | | | | | | | + +------+--------+ +--------+--------+--------+ | Set Scrw Ns G5 Brk Off Ti | | N/A: | SOFAMOR | | | [id number] | | 4.75 - [id number]: | | Spine | DANEK - DIV | | | 0 / / | | Qty: 4 on 07/02/2014 by | | Lumbar | [employer] | | | | | Frandy Teresa DO at [facility] | | | - [facility] | | | | | [facility] | | | | | | | | [facility] | | | | | | | + +------+--------+ +--------+--------+--------+ | RodImplanted: Qty: 1 on | | N/A: | | | | [id number] | | 07/02/2014 by Frandy Teresa | | Spine | | | | 540 / | | DO Ronak at [facility] | | Lumbar | | | | / | | [facility] | | | | | | | + +------+--------+ +--------+--------+--------+ | RodImplanted: Qty: 1 on | | N/A: | MEDTROL - | | | [id number] | | 07/02/2014 by Frandy Teresa | | Spine | MDTR | | | 545 / | | A DO at [facility] | | Lumbar | | | | / | | [facility] | | | | | | | + +------+--------+ +--------+--------+--------+ | Screw 7.5x50mm Sextant - | | N/A: | [employer] - | | | [id number] | | [id number]: Qty: 1 on | | Spine | MEDT | | | [id number] | | 07/02/2014 by Frandy Teresa | | Lumbar | | | | / / | | ADO at [facility] | | | | | | | | [facility] | | | | | | | + +------+--------+ +--------+--------+--------+ | Cannulated ScrewImplanted: | | N/A: | [employer]OL - | | | [id number] | | Qty: 1 on 07/02/2014 by | | Spine | MDTR | | | [id number] | | Frandy Teresa DO at [facility] | | Lumbar | | | | / / | | [facility] | | | | | | | | CENTER | | | | | | | + +------+--------+ +--------+--------+--------+ | Cannulated ScrewImplanted: | | N/A: | [employer] - | | | [id number] | | Qty: 1 on 07/02/2014 by | | Spine | MEDT | | | [id number] | | Frandy Teresa DO at [facility] | | Lumbar | | | | / / | | [facility] | | | | | | | | CENTER | | | | | | | + +------+--------+ +--------+--------+--------+ Results Not on filefrom Last 3 Months Insurance + +--------+ +--------+ +---------+--------+ | Payer | Benefi | Subscriber | Effect | Phone | Address | Type | | | t Plan | ID | chris | | | | | | / | | Dates | | | | | | Group | | | | | | + +--------+ +--------+ +---------+--------+ | MEDICARE | MEDICA | [id number] | 02/22/20 | [phone] | | Medica | | | RE | | 09-Pre | 5 | | re | | | PART A | | sent | | | | | | AND B | | | | | | + +--------+ +--------+ +---------+--------+ | MEDICARE | MEDICA | [id number] | 02/22/20 | [phone] | | Medica | | | RE | | 09-Pre | 5 | | re | | | PART A | | sent | | | | | | AND B | | | | | | + +--------+ +--------+ +---------+--------+ + +--------+ +--------+ + + | Guarantor Name | Accoun | Relation to | Date | Phone | Billing Address | | | t Type | Patient | of | | | | | | | | | | + +--------+ +--------+ + + | Cindy Arndt | Person | Self [birth year] | [address] | | | al/Fam | | 1955 | [phone] | [address] [place], [place] | | | [place]onte | | | 1 (Home) | [address] | + +--------+ +--------+ + + | Cindy Arndt L | Person | Self | [birth year] | [address] | | | al/Fam | | 1955 | [phone] | [address] [place], [place] | | | [place] | | | 1 (Home) | [address] | + +--------+ +--------+ + + Advance Directives + + + + + | Type | Date Recorded | Patient | Explanation | | | | 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
--- OUTSIDE RECORDS SUMMARY | ~2019-10-11 | XMS | Encounter Summary ---
Demographics + + + | Address | [address] | | | [place] [address] | + + + | Home Phone [...] [place], [place] | | | | | [address] | | + + + + + Care Team Providers + +------+ + | Care Fund Development Manager Name | Role | Phone | + +------+ + PCP | Unavailable | + +------+ + Encounter Details +--------+ + + + + | Date | Type | Department | Care Team | Description | +--------+ + + + + | 12/24/ | Hospital | [facility] | | | | 1998 | Encounter | MED CTR XRAY [address] | | | | | | [address] [place] | | | | | | [place] [address] | | | | | | [phone] | | | +--------+ + + + [...] | | | | | [place] | | | | | | [address] | | | | | | | | +--------+---------+ + + + documented as of this encounter Visit Diagnoses Not on filedocumented in this encounter"
--- OUTSIDE RECORDS SUMMARY | ~2019-10-11 | XMS | Encounter Summary ---
Demographics + + + | Address | [address] | | | [place] [address] | + + + | Home Phone [...] [place] | | | | | [address] | | + + + + + Care Team Providers + +------+ + | Care Standpipe Tender Name | Role | Phone | + +------+ + | Basim Bolanos MD | PCP | | + +------+ + Reason for Visit +---------+ + | Reason | Comments | +---------+ + | Apnea | | +---------+ + | Fatigue | | +---------+ + Encounter Details +--------+---------+ + + + | Date | Type | Department | Care Team | Description | +--------+---------+ + + + | 03/06/ | Office | [facility] | Deon Gonzales | ROGERS (obstructive | | 2012 | Visit | SLEEP DISORDER [address] | MD [address] | sleep apnea) | | | | [address] [place] | [address] [place] | (Primary Dx); | | | | [place] [address] | [place] [address] | Sleepiness | | | | [phone] | [phone] | | | | | | | [...] + + + | Blood Pressure | 150/92 | 03/06/2013 9:43 AM | | | | | PDT | | + + + + + | Pulse | 76 | 03/06/2013 9:43 AM | | | | | PDT | | + + + + + | Temperature | - | - | | + + + + + | Respiratory Rate | 16 | 03/06/2013 9:43 AM | | | | | PDT | | + + + + + | Oxygen Saturation | - | - | | + + + + + | Inhaled Oxygen | - | - | | | Concentration | | | | + + + + + | Weight | 150.9 kg (332 lb 9.6 | 03/06/2013 9:43 AM | | | | oz) | PDT | | + + + + + | Height | - | - | | + + + + + | Body Mass Index | 52.88 | 02/28/2012 12:00 AM | | | | | PDT | | + + + + + documented in this encounter Patient Instructions Patient Instructions Deon Gonzales Jr., MD - 03/06/2013 10:00 AM PDTWake up: 6am every m orning and get as much light as possible after awakening. Limit caffeine to no more than 2 cups of coffee in the morning. Take a 90 minute nap from about 1-2:30pm in your bedroom with CPAP. Bedtime 10pm every night and continue to wear CPAP every night. Then I will see you back in a month.Electronically signed by Deon Gonzales Jr., MD at 10:02 AM PDT documented in this encounter Progress Notes Deon Gonzales Jr., MD - 03/06/2013 10:08 AM PDTFormatting of this note might be differen t from the original. 03/06/13 [address] [place] Sleepiness Scale Sitting and reading 3 Watching TV 3 Sitting, inactive in a public place (e.g. a theatre or a meeting) 2 As a passenger in a car for an hour without a break 3 Lying down to rest in the afternoon when circumstances permit 3 Sitting and talking to someone 2 Sitting quietly after a lunch without alcohol 2 In a car, while stopped for a few minutes in traffic 0 Total score 18 imon, Deon Abad Jr., MD - 03/06/2013 9:49 AM PDTFormatting of this note might be different from the origi nal. The patient comes in for follow-up on CPAP therapy for ROGERS. The patient is on a Resmed S9 a utoset CPAP unit which is set at 11-20cm of pressure. The patient has worn CPAP for 258 out of 273 days. The average titrated pressure is 13cm; the 95th percentile pressure is 16.2cm; and the maximum titrated pressure is 181 cm. The calculated AHI is 2.8. The median daily usa ge is 6 hours and 26 minutes. The patient comes in now because she is falling asleep more in the daytime. Bedtime is usually 9-10pm and rise time is 5-6am. She estimates a latency to sleep onset of just 1-2 minutes. She has nocturia once at night and she gets back to sleep immediately. Tana hayward denies night sweats and she denies nocturnal heartburn. She has dryness in her nose and he r mouth upon awakening in the morning. She denies morning headaches. She dreams rarely. She doesn't walk in her sleep. She doesn't have dream enactment while as leep. She denies hypnagogic hallucinations. She denies sleep paralysis. She denies restlessness in her legs at bedtime. Her grand-daughter heard her snore on the CPAP a couple of nights ago though. She is falling asleep in the daytime when she is sitting in her chair reading, drinking an cup of coffee, or praying. She drinks two cups of coffee in the morning. She denies cataple xy. She recently was started on asenapine. She has also recently been started on atorvostatin a nd glimeperide. She takes hydrocodone only 1-2 times a week for back pain which is the same frequency she takes tramadol. She does take a nap for an hour or so every day. Past Medical History Diagnosis Date GERD (gastroesophageal reflux disease) Chronic lumbar pain Mononeuritis [place]ALP Hypertension Hyperlipidemia Diabetes mellitus Dermatitis Edema Obesity Bipolar 1 disorder PVC (premature ventricular contraction) Obstructive sleep apnea DDD (degenerative disc disease), lumbar Fatty liver disease, nonalcoholic Somatic dysfunction of spine, sacral Chest pain Hypothyroidism Current outpatient prescriptions:asenapine (SAPHRIS) 10 mg SL tablet, Place 10 mg under the tongue 2 times daily., Disp: , Rfl: ; glimepiride (AMARYL) 4 mg tablet, Take 4 mg by mouth 2 times daily., Disp: , Rfl: ; atorvaSTATin (LIPITOR) 10 mg tablet, Take 10 mg by mouth ni ghtl., Disp: , Rfl: ; Magnesium 250 MG TABS, Take 1 tablet by mouth Daily., Disp: , Rfl: UNCODED MEDICATION, Diagnosis: Obstructive Sleep Apnea ICD-9: 327.23 Length of Need: 99 Mon ths, Disp: 1 Device, Rfl: 0; HYDROCODONE-ACETAMINOPHEN PO, , Disp: , Rfl: ; cyclobenzaprin e (FLEXERIL) 5 MG tablet, Take 5 mg by mouth Daily as needed., Disp: , Rfl: ; aspirin 81 MG tablet, Take 81 mg by mouth Daily., Disp: , Rfl: ; Melatonin 5 MG SUBL, Place 5 mg under t he tongue nightly., Disp: , Rfl: Calcium Citrate 1040 MG TABS, Take 1,040 mg by mouth Daily., Disp: , Rfl: ; Wise-3 Fatty Acids (FISH OIL CONCENTRATE) 1000 MG CAPS, Take 1,000 mg by mouth 3 times daily., Disp: , Rf l: ; fluocinonide (LIDEX) 0.05 % ointment, Apply to affected area twice daily as needed, Di sp: , Rfl: ; PARoxetine (PAXIL) 20 mg tablet, Take 20 mg by mouth Daily., Disp: , Rfl: ; l evothyroxine (SYNTHROID) 100 mcg tablet, Take 100 mcg by mouth Daily., Disp: , Rfl: omeprazole (PRILOSEC) 40 MG capsule, Take 40 mg by mouth Daily., Disp: , Rfl: ; Cholecalci ferol (VITAMIN D3) 2000 UNITS CAPS, Take 2,000 Units by mouth 2 times daily., Disp: , Rfl: ; divalproex (DEPAKOTE) 500 mg EC tablet, 1250mg by mouth at bedtime, Disp: , Rfl: ; traMAD ol (ULTRAM) 50 mg tablet, Take 50 mg by mouth Daily as needed., Disp: , Rfl: OLANZapine zydis (ZYPREXA ZYDIS) 15 MG disintegrating tablet, Take 15 mg by mouth nightly., Disp: , Rfl: ; Naproxen Sodium (ALEVE PO), TABS Two tablets by mouth twice daily as needed , Disp: , Rfl: ; atenolol (TENORMIN) 50 mg tablet, Take 50 mg by mouth 2 times daily., Disp : , Rfl: ; lisinopril (PRINIVIL, ZESTRIL) 10 mg tablet, Take 10 mg by mouth Daily., Disp: , Rfl: Allergies Allergen Reactions Demerol Duloxetine Erythromycin Fluoxetine Haloperidol Phenergan Prochlorperazine Maleate Sulfa Antibiotics Topamax Past Surgical History Procedure Date Jorje placement tibia 2000 RIGHT Cholecystectomy 1997 Mastectomy, partial 1995 Hysterectomy 1991 TVH, Tonsillectomy Dilatation & curretage 1973 Family History Problem Relation Age of Onset High blood pressure Mother High blood pressure Father Cancer Sister cervical PE: BP 150/92 | Pulse 76 | Resp 16 | Wt 150.866 kg (332 lb 9.6 oz) HEENT: Normocephalic, atraumatic. Oropharynx clear. Mallampati 4. Tonsillar Grade 0. Lungs: Clear Card: S1, S2 wnl. No S3, S4, Murmurs, clicks Abd: Obese. Normal BS. Ext: No C,C,E Neuro: Oriented x 3 with normal affect. Cranial 2-12 intact. Motor grossly normal. Reflexes not tested. A: EDS: She has had worsening daytime sleepiness but has been wearing her CPAP religiously. Download indicates that her ROGERS is well controlled. I think the differential diagnosis prob ably centers around either insufficient sleep, sleepiness secondary to medications, or resid ual EDS in a patient with ROGERS (I think less likely). I have discussed this with her and am s uggesting that we increase the number of hours of sleep on CPAP by incorporating a formal da devonte nap. P: Wake up: 6am every morning and get as much light as possible after awakening. Limit caffeine to no more than 2 cups of coffee in the morning. Take a 90 minute nap from about 1-2:30pm in your bedroom with CPAP. Bedtime 10pm every night and continue to wear CPAP every night. Then I will see you back in a month. Today, 30 minutes was spent face to face with the patient; the majority of time was spent guevara cedillo. CC: Dr. Enmanuel Bolanos. documented in th is encounter Plan of Treatment +--------+---------+ + + + | Date | Type | Specialty | Care Team | Description | +--------+---------+ + + + | 04/10/ | Office | Cardiology | Desiree Peterson DO | | | 2019 | Visit | | [address] | | | | | | [place] | | | | | | [phone] | | | | | | | | +--------+---------+ + + + documented as of this encounter Visit Diagnoses + + | Diagnosis | + + | ROGERS (obstructive sleep apnea) - Primary Obstructive sleep apnea (adult) (pediatric) | + + | Sleepiness Other alteration of consciousness | + + documented in this encounter"
--- OUTSIDE RECORDS SUMMARY | ~2019-10-11 | XMS | Encounter Summary ---
Demographics + + + | Address | [address] | | | [place] [address] | + + + | Home Phone | | + + + | Preferred Language | Unknown | + + + | Marital Status | | + + + | Voodoo Affiliation | 1013 | + + + | Race | Unknown | + + + | Ethnic Group | Unknown | + + + Author + + + | Author | [facility] | | | and [place] | + + + | Organization | [facility] | | | and [place] | + + + | Address | Unknown | + + + | Phone | Unavailable | + + + Support + + + + + | Name | Relationship | Address | Phone | + + + + + | Araceli S[place]y | ECON | [place], [place] | | | | | [address] | | + + + + + Care Team Providers + +------+ + | Care Auto Brake Mechanic Name | Role | Phone | [...] Location | | | | | | [phone] | | | +--------+ + + + [...] [place] | | | | | | [address] | | | | | | | | +--------+---------+ + + + documented as of this encounter Visit Diagnoses Not on filedocumented in this encounter"
--- OUTSIDE RECORDS SUMMARY | ~2019-10-11 | XMS | Encounter Summary ---
Demographics + + + | Address | [address] | | | [place] [address] | + + + | Home Phone [...] [place] | | | | | [address] | | + + + + + Care Team Providers + +------+ + | Care Mud Analysis Well Logging Captain Name | Role | Phone | + +------+ + | Natalee Andersen NP | PCP | | + +------+ + Encounter Details +--------+ + + + + | Date | Type | Department | Care Team | Description | +--------+ + + + + | 06/25/ | Hospital | [facility] | Latricia Feliciano | | | 2014 | Encounter | MED CTR ACUTE | D, PT [address] | | | | | PHYSICAL THERAPY | [place] | | | | | [address] | [address] | | | | | [place] [address] | | | | | | [phone] | | | +--------+ + + + [...] + + + +---------+ + + | Seagrove-3 Fatty | Take 1,000 mg by | [...] [place] | | | | | | [address] | | | | | | | | +--------+---------+ + + + documented as of this encounter Visit Diagnoses Not on filedocumented in this encounter"
--- OUTSIDE RECORDS SUMMARY | ~2019-10-11 | XMS | Encounter Summary ---
Demographics + + + | Address | [address] | | | [place] [address] | + + + | Home Phone | | + + + | Preferred Language | Unknown | + + + | Marital Status | | + + + | Taoism Affiliation | 1013 | + + + | Race | Unknown | + + + | Ethnic Group | Unknown | + + + Author + + + | Author | [facility] | | | and [place] | + + + | Organization | [facility] | | | and [place] | + + + | Address | Unknown | + + + | Phone | Unavailable | + + + Support + + + + + | Name | Relationship | Address | Phone | + + + + + | Araceli Sibley | ECON | [place], [place] | | | | | [address] | | + + + + + Care Team Providers + +------+ + | Care Supervisor Continuous Weld Pipe Mill Name | Role | Phone | + +------+ + PCP | Unavailable | + +------+ + Encounter Details +--------+ + + + + | Date | Type | Department | Care Team | Description | +--------+ + + + + | 07/17/ | Hospital | [facility] | | | | 1997 - | Encounter | MED CTR GENERIC PSY | | | | | | CONV DEPT [address] | | | | 07/25/ | | [place], | | | | 1997 | | [place] [address] | | | | | | [phone] | | | +--------+ + + + [...] [place] | | | | | | [address] | | | | | | | | +--------+---------+ + + + documented as of this encounter Visit Diagnoses Not on filedocumented in this encounter"
--- OUTSIDE RECORDS SUMMARY | ~2019-10-11 | XMS | Encounter Summary ---
Demographics + + + | Address | [address] | | | [place] [address] | + + + | Home Phone [...] + | Araceli Sibley | ECON | [place] | | | | | [address] | | + + + + + Care Team Providers + +------+ + | Care Humid System Operator Name | Role | Phone | + +------+ + | Natalee Andersen NP | PCP | | + +------+ + Encounter Details +--------+ + + + + | Date | Type | Department | Care Team | Description | +--------+ + + + + | 06/25/ | Hospital | [facility] | Frandy Teresa, | Diabetes mellitus | | 2014 | Encounter | MED CTR OR INTRA OP | DO [address] | (HCC) (Primary Dx) | | | | [address] | [address] [place], [place] | | | | | [place], [place] | [address] | | | | | [address] | | | | | | [phone] | | | +--------+ + + + [...] + + + +---------+ + + | Natoma-3 Fatty | Take 1,000 mg by | [...] cleared again. documented in this en counter Plan of Treatment +--------+---------+ + + + | Date | Type | Specialty | Care Team | Description | +--------+---------+ + + + | 04/10/ | Office | Cardiology | Desiree Peterson DO | | | 2020 | Visit | | [address] | | | | | | [place] | | | | | | [phone] | | | | | | | [...] At | + + + | Terence Madison MD 06/26/2014 8:05 Adult ECG Report | [...] | | | | mmol/L | [facility] | | | | [...] | 0.60 | 0.60 - 1.30 | [facility] | [...] mL/min/1.73m2 | [facility] | | | [facility] | RATE,ESTIMATED | | MEDICAL | | | | mL/min/1.68s2Xivn than | | CENTER - | | [...] + | [facility] | [address] | [place], [place] | [phone] | | [facility] | | [address] | | | - LABORATORY | | | | + + + + + | [facility] | [address] | [place], [place] | | | [facility] | | [address] | | | - LABORATORY | | | | + + + + + PTT (06/25/2014 1:58 PM PDT) + +-------+ + + + | Component | Value | Ref Range | Performed | Pathologist | | | | | At | Signature | + +-------+ + + + | aPTT | 28 | 22 - 36 seconds | [facility] | | | | | [...] + | [facility] | [address] | [place] | [phone] | | [facility] | | [address] | | | - LABORATORY | | | | + + + + + | [facility] | [address] | [place], [place] | | | [facility] | | [address] | | | - LABORATORY | | [...] | Time | | seconds | [facility] | | | | | | MEDICAL | | | | | | CENTER - | | | | | | LABORATORY | | + +-------+ + + + | INR | 0.96 | 0.90 - 1.10 | [facility] | | | | | [...] [address] | [place] | [phone] | | [facility] | | [address] | | | - LABORATORY | | | | + + + + + | [facility] | [address] | [place] | | | [facility] | | [address] | | | - LABORATORY | | [...] | | Screen | | | [facility] | | [...] | [place] | | | [facility] | | [address] | | | - BLOOD BANK | | | | + + + + + POC Glucose (06/25/2014 1:48 PM PDT) + +-------+ + + + | Component | Value | Ref Range | Performed | Pathologist | | | | | At | Signature | + +-------+ + + + | Glucose, | 113 | 79 - 150 mg/dL | [facility] [...] | + + + + + | [facility] | [address] | [place] | [phone] | | [facility] | | [address] | | | - LABORATORY | | | | + + + + + | [facility] | [address] | [place], [place] | | | [facility] | | [address] | | | - LABORATORY | | | | + + + + + documented in this encounter Visit Diagnoses + + | Diagnosis | + + | Diabetes mellitus (HCC) - Primary Type II or unspecified type diabetes mellitus | | without mention of complication, not stated as uncontrolled [...]
--- OUTSIDE RECORDS SUMMARY | ~2019-10-11 | XMS | Encounter Summary ---
Demographics + + + | Address | [address] | | | [place] [address] | + + + | Home Phone [...] [place] | | | | | [address] | | + + + + + Care Team Providers + +------+ + | Care Stereoptician Name | Role | Phone | + +------+ + | Natalee Andersen NP | PCP | | + +------+ + Reason for Visit + + + | Reason | Comments | + + + | Appointment | New Patient | + + + Encounter Details +--------+ + + + + | Date | Type | Department | Care Team | Description | +--------+ + + + + | 02/27/ | Telephone | [facility] | Katharine Cardona PA-C | Appointment (New | | 2014 | | MEDICINE [address] | [address] | Patient) | | | | [address] [place] | [place] [address] | | | | | [place] [address] | [phone] | | | | | [phone] | | | +--------+ + + + [...] [place] | | | | | | [address] | | | | | | | | +--------+---------+ + + + documented as of this encounter Visit Diagnoses Not on filedocumented in this encounter"
--- OUTSIDE RECORDS SUMMARY | ~2019-10-11 | XMS | Encounter Summary ---
Demographics + + + | Address | [address] | | | [place] [address] | + + + | Home Phone [...] [place], [place] | | | | | [address] | | + + + + + Care Team Providers + +------+ + | Care Site Safety Representative Name | Role | Phone | + +------+ + PCP | Unavailable | + +------+ + Encounter Details +--------+ + + + + | Date | Type | Department | Care Team | Description | +--------+ + + + + | 05/23/ | Hospital | [facility] | | | | 1991 | Encounter | MED CTR XRAY [address] | | | | | | [place] | | | | | | [place] [address] | | | | | | [phone] | | | +--------+ + + + [...] | | | | | [place] | | | | | | [address] | | | | | | | | +--------+---------+ + + + documented as of this encounter Visit Diagnoses Not on filedocumented in this encounter"
--- OUTSIDE RECORDS SUMMARY | ~2019-10-11 | XMS | Encounter Summary ---
Demographics + + + | Address | [address] | | | [place] [address] | + + + | Home Phone [...] [place] | | | | | [address] | | + + + + + Care Team Providers + +------+ + | Care Car Inspection And Repair Manager Name | Role | Phone | [...] + + | 08/16/ | Documentati | [facility] | Katharine Moncada, | Other (urgent | | 2019 | on | CARDIOLOGY [place] | Technologist | report) | | | | [address] | | | | | | [place] | | | | | | [address] | | | | | | [phone] | | | +--------+ + + + [...] [place] | | | | | | [address] | | | | | | | | +--------+---------+ + + + documented as of this encounter Visit Diagnoses Not on filedocumented in this encounter"
--- OUTSIDE RECORDS SUMMARY | ~2019-10-11 | XMS | Encounter Summary ---
Demographics + + + | Address | [address] | | | [place] [address] | + + + | Home Phone | | + + + | Preferred Language | Unknown | + + + | Marital Status | | + + + | Pentecostalism Affiliation | 1013 | + + + | Race | Unknown | + + + | Ethnic Group | Unknown | + + + Author + + + | Author | [facility] | | | and [place] | + + + | Organization | [facility] | | | and [place] | + + + | Address | Unknown | + + + | Phone | Unavailable | + + + Support + + + + + | Name | Relationship | Address | Phone | + + + + + | Araceli Sibley | ECON | [place] | | | | | [address] | | + + + + + Care Team Providers + +------+ + | Care Box Maker Name | Role | Phone | [...] + + | 08/14/ | Telephone | [facility] | Ashley Chávez | Other (Patient was | | 2019 | | CARDIOLOGY [place] Abad, Disability Rater | anxious about urgent | | | | [address] | | reports. ) | | | | [place] | | | | | | [address] | | | | | | [phone] | | | +--------+ + + + [...] [place] | | | | | | [address] | | | | | | | | +--------+---------+ + + + documented as of this encounter Visit Diagnoses Not on filedocumented in this encounter"
--- OUTSIDE RECORDS SUMMARY | ~2019-10-11 | XMS | Encounter Summary ---
Demographics + + + | Address | [address] | | | [place] [address] | + + + | Home Phone [...] [place], [place] | | | | | [address] | | + + + + + Care Team Providers + +------+ + | Care Learning Support Teacher Name | Role | Phone | + +------+ + PCP | Unavailable | + +------+ + Encounter Details +--------+ + + + + | Date | Type | Department | Care Team | Description | +--------+ + + + + | 06/23/ | Hospital | [facility] | | | | 2000 | Encounter | MED CTR GENERIC OP | | | | | | CONV DEPT [address] | | | | | | [place], | | | | | | [place] [address] | | | | | | [phone] | | | +--------+ + + + [...] | | | | | [place] | | | | | | [address] | | | | | | | | +--------+---------+ + + + documented as of this encounter Visit Diagnoses Not on filedocumented in this encounter"
--- OUTSIDE RECORDS SUMMARY | ~2019-10-11 | XMS | Encounter Summary ---
Demographics + + + | Address | [address] | | | [place] [address] | + + + | Home Phone | | + + + | Preferred Language | Unknown | + + + | Marital Status | Single | + + + | Shinto Affiliation | Unknown | + + + [...] [place] | | | | | [address] | | + + + + + Care Team Providers + +------+ + | Care Lean Manufacturing Coordinator Name | Role | Phone | [...] | Transcriptions | + + | Interface, Rope Making Machine Operator In - 10/24/2006 3:09 AM PST | | [facility] | | [address] [place], [place] [address] [place] | | [facility] SystemOPERATION RECORDMed Rec No.: [id number] Date: | | [...]
--- OUTSIDE RECORDS SUMMARY | ~2019-10-11 | XMS | Encounter Summary ---
Demographics + + + | Address | [address] | | | [place] [address] | + + + | Home Phone [...] [place], [place] | | | | | [address] | | + + + + + Care Team Providers + +------+ + | Care Assembler And Tester Electronics Name | Role | Phone | + +------+ + PCP | Unavailable | + +------+ + Encounter Details +--------+ + + + + | Date | Type | Department | Care Team | Description | +--------+ + + + + | 03/11/ | [facility] | [facility] | Deon oGnzales | | | 2005 | Encounter | MED CTR SLEEP | MD Laure[address] | | | | | [place] [address] | [address] [place] | | | | | [place], [place] | [place] [address] | | | | | [address] | [phone] | | | | | [phone] | | | +--------+ + + + [...] [place] | | | | | | [address] | | | | | | | | +--------+---------+ + + + documented as of this encounter Visit Diagnoses Not on filedocumented in this encounter"
--- OUTSIDE RECORDS SUMMARY | ~2019-10-11 | XMS | Encounter Summary ---
Demographics + + + | Address | [address] | | | [place] [address] | + + + | Home Phone [...] [place] | | | | | [address] | | + + + + + Care Team Providers + +------+ + | Care Home Therapy Clinician Name | Role | Phone | + [...] + + | 08/15/ | Documentati | [facility] | Katharine Moncada, | Other (urgent | | 2019 | on | CARDIOLOGY [place] | Technologist | report) | | | | [address] | | | | | | [place] | | | | | | [address] | | | | | | [phone] | | | +--------+ + + + [...] [place] | | | | | | [address] | | | | | | | | +--------+---------+ + + + documented as of this encounter Visit Diagnoses Not on filedocumented in this encounter"
--- OUTSIDE RECORDS SUMMARY | ~2019-10-11 | XMS | Encounter Summary ---
Demographics + + + | Address | [address] | | | [place] [address] | + + + | Home Phone [...] [place] | | | | | [address] | | + + + + + Care Team Providers + +------+ + | Care Wharfinger Chief Name | Role | Phone | + [...] + + | 08/21/ | Documentati | [facility] | Katharine Moncada, | Other (urgent | | 2019 | on | CARDIOLOGY [place] | Technologist | report) | | | | [address] | | | | | | [place] | | | | | | [address] | | | | | | [phone] | | | +--------+ + + + [...] encounter Progress Notes Katharine Moncada, Technologist - 08/21/2019 9:04 AM PDTReceived urgent report 08/21/19 Pt had a urgent report 08/20/19 at 22:23 138 BPM for possible new onset afib / AFL < 1 hr 30 day monitor was placed 08/09/19 No [...] [place] | | | | | | [address] | | | | | | | | +--------+---------+ + + + documented as of this encounter Visit Diagnoses Not on filedocumented in this encounter"
--- OUTSIDE RECORDS SUMMARY | ~2019-10-11 | XMS | Encounter Summary ---
Demographics + + + | Address | [address] | | | [place] [address] | + + + | Home Phone [...] [place] | | | | | [address] | | + + + + + Care Team Providers + +------+ + | Care Phototypesetting Equipment Monitor Name | Role | Phone | + [...] | | | | | | | [address] | | | | | | | Phone: | | | | | | | [phone] | | | | | | | Fax: | | | | | | | [phone] | | +--------+ + + + + + Reason for Visit + + + | Reason | Comments | + + + | Follow-up | 4 Week PO | + + + Encounter Details +--------+---------+ + + + | Date | Type | Department | Care Team | Description | +--------+---------+ + + + | 07/25/ | Office | [facility] | Frandy Teresa, | Lumbar spondylosis | | 2013 | Visit | NEUROSURGERY [address] | DO [address] | (Primary Dx); S/P | | | | [address] | [address] [place], [place] | lumbar fusion | | | | [place], [place] | [address] | | | | | [address] | | | | | | [phone] | | | +--------+---------+ + + + [...] m the original. Frandy Teresa DO [address] [place], [place] [address] FAX: NEUROSURGERY SURGICAL FOLLOW-UP CHIEF COMPLAINT: Chief [...] Take 15 mg by mouth nightl y. Clio-3 Fatty Acids (FISH OIL CONCENTRATE) 1000 MG [...] 07/25/2014 15:51 documented in this en counter Plan of Treatment +--------+---------+ + + + | Date | Type | Specialty | Care Team | Description | +--------+---------+ + + + | 04/10/ | Office | Cardiology | Desiree Peterson DO | | | 2019 | Visit | | [address] | | | | | | [place] | | | | | | [address] | | | | | | | [...] + | MISCELLANEOUS LAB | | | [phone] | + +---------+ + + | MISCELANIOUS LAB | | | [phone] | + +---------+ + + documented in this encounter Visit Diagnoses + + | Diagnosis | + + | Lumbar spondylosis - Primary Lumbosacral spondylosis without myelopathy | + + | S/P lumbar fusion Arthrodesis status | + + documented in this encounter
--- OUTSIDE RECORDS SUMMARY | ~2019-10-11 | XMS | Encounter Summary ---
Demographics + + + | Address | [address] | | | [place] [address] | + + + | Home Phone [...] [place] | | | | | [address] | | + + + + + Care Team Providers + +------+ + | Care Merchandise Planning Manager Name | Role | Phone | [...] [address] | [address] [place], [place] | | | | | [place], [place] | [address] | | | | | [address] | | | | | | [phone] | | | +--------+ + + + [...] [place] | | | | | | [address] | | | | | | | [...] + | MISCELLANEOUS LAB | | | [phone] | + +---------+ + + | MISCELANIOUS LAB | | | [phone] | + +---------+ + + documented in this encounter Visit Diagnoses + + | Diagnosis | + + | Back pain - Primary Backache, unspecified | + + documented in this encounter"
--- OUTSIDE RECORDS SUMMARY | ~2019-10-11 | XMS | Encounter Summary ---
Demographics + + + | Address | [address] | | | [place] [address] | + + + | Home Phone [...] [place] | | | | | [address] | | + + + + + Care Team Providers + +------+ + | Care Preschool Program Director Name | Role | Phone | [...] | | [address] | [place] [address] | | | | | [place], [place] | [phone] | | | | | [address] | | | | | | [phone] | | | +--------+ + + + [...] | | | | | | [facility] | | | | | | [address] | | | | | | | | +--------+---------+ + + + documented as of this encounter Visit Diagnoses Not on filedocumented in this encounter"
--- OUTSIDE RECORDS SUMMARY | ~2019-10-11 | XMS | Encounter Summary ---
Demographics + + + | Address | [address] | | | [place] [address] | + + + | Home Phone [...] [place], [place] | | | | | [address] | | + + + + + Care Team Providers + +------+ + | Care Android Developer Name | Role | Phone | + +------+ + PCP | Unavailable | + +------+ + Encounter Details +--------+ + + + + | Date | Type | Department | Care Team | Description | +--------+ + + + + | 02/24/ | Hospital | [facility] | | | | 1997 - | Encounter | MED CTR GENERIC PSY | | | | | | CONV DEPT [address] | | | | 02/26/ | | [place], | | | | 1997 | | [place] [address] | | | | | | [phone] | | | +--------+ + + + [...] [place] | | | | | | [address] | | | | | | | | +--------+---------+ + + + documented as of this encounter Visit Diagnoses Not on filedocumented in this encounter"
--- OUTSIDE RECORDS SUMMARY | ~2019-10-11 | XMS | Encounter Summary ---
Demographics + + + | Address | [address] | | | [place] [address] | + + + | Home Phone [...] [place] | | | | | [address] | | + + + + + Care Team Providers + +------+ + | Care Banking Pin Adjuster Name | Role | Phone | + +------+ + | Thierry Fry MD | PCP | | + +------+ + Reason for Visit + + + | Reason | Comments | + + + | Medication Prior | Dexilant 60Mg | | Authorization | | + + + Encounter Details +--------+ + + + + | Date | Type | Department | Care Team | Description | +--------+ + + + + | 03/26/ | Telephone | [facility] | Thierry Fry | Medication Prior | | 2015 | | MEDICINE [facility] | MD Lisa [address] | Authorization | | | | [facility] | [facility] [place] | (Dexilant 60Mg) | | | | [place] [address] | [address] | | | | | [phone] | | | +--------+ + + + [...] [place] | | | | | | [address] | | | | | | | | +--------+---------+ + + + documented as of this encounter Visit Diagnoses Not on filedocumented in this encounter"
--- OUTSIDE RECORDS SUMMARY | ~2019-10-11 | XMS | Encounter Summary ---
Demographics + + + | Address | [address] | | | [place] [address] | + + + | Home Phone [...] [place], [place] | | | | | [address] | | + + + + + Care Team Providers + +------+ + | Care Physical Therapy Asst Name | Role | Phone | + +------+ + PCP | Unavailable | + +------+ + Encounter Details +--------+ + + + + | Date | Type | Department | Care Team | Description | +--------+ + + + + | 05/25/ | Hospital | [facility] | | | | 1991 | Encounter | MED CTR LABORATORY | | | | | | [address] | | | | | | [place] | | | | | | [address] | | | | | | [phone] | | | +--------+ + + + [...] | | | | | [place] | | | | | | [address] | | | | | | | | +--------+---------+ + + + documented as of this encounter Visit Diagnoses Not on filedocumented in this encounter"
--- OUTSIDE RECORDS SUMMARY | ~2019-10-11 | XMS | Encounter Summary ---
Demographics + + + | Address | [address] | | | [place] [address] | + + + | Home Phone [...] [place] | | | | | [address] | | + + + + + Care Team Providers + +------+ + | Care Block Handler Name | Role | Phone | + +------+ + | Basim Bolanos MD | PCP | | + +------+ + Encounter Details +--------+ + + + + | Date | Type | Department | Care Team | Description | +--------+ + + + + | 01/24/ | Abstract | [facility] [place] | [facility], | | | 2012 | | GASTROENTEROLOGY | [address]UNATO Thomas [address] | | | | | [address] | [place], [address] | | | | | [address] [place], [place] | [place], [place] | | | | | [address] | [address] | | | | | [phone] | | | +--------+ + + + [...] [place] | | | | | | [address] | | | | | | | | +--------+---------+ + + + documented as of this encounter Visit Diagnoses Not on filedocumented in this encounter"
--- OUTSIDE RECORDS SUMMARY | ~2019-10-11 | XMS | Encounter Summary ---
Demographics + + + | Address | [address] | | | [place] [address] | + + + | Home Phone [...] [place], [place] | | | | | [address] | | + + + + + Care Team Providers + +------+ + | Care Cargo Tank Mechanic Name | Role | Phone | + +------+ + PCP | Unavailable | + +------+ + Encounter Details +--------+ + + + + | Date | Type | Department | Care Team | Description | +--------+ + + + + | 12/31/ | Hospital | [facility] | | | | 1996 | Encounter | MED CTR XRAY [address] | | | | | | [place] | | | | | | [place] [address] | | | | | | [phone] | | | +--------+ + + + [...] | | | | | [place] | | | | | | [address] | | | | | | | | +--------+---------+ + + + documented as of this encounter Visit Diagnoses Not on filedocumented in this encounter"
--- OUTSIDE RECORDS SUMMARY | ~2019-10-11 | XMS | Encounter Summary ---
Demographics + + + | Address | [address] | | | [place] [address] | + + + | Home Phone [...] [place] | | | | | [address] | | + + + + + Care Team Providers + +------+ + | Care Field Service Supervisor Name | Role | Phone | [...] + + | 07/06/ | Emergency | [facility] | Yunior [place], | Chest pain, | | 2014 | | MED CTR EMERGENCY | MD [address] | unspecified chest | | | | CENTER [address] | [place], [place] | pain type (Primary | | | | [place], [place] | [address] | Dx) | | | | [address] | | | | | | [phone] | | | +--------+ + + + [...] sent through Care Everywhere.CHEST PAIN, NON CARDIAC (UZBEK)documented in this encounter Medications at Time of [...] 0 | | | | (VITAMIN D-3) [address] | mouth Once a week. | | [...] | | | | | | | ([facility]) | | | | | | + [...] + + + +---------+ + + | Centennial-3 Fatty | Take 1,000 mg by | [...] [place] | | | | | | [address] | | | | | | | [...] [address] | [place] | [phone] | | [facility] | | [address] | | | - LABORATORY | | [...] [address] | [place] | [phone] | | [facility] | | [address] | | | - LABORATORY | | [...] | | | | | | [employer] | | | | | [...] + + | Performing | Address | City/State/[facility] Cent[facility]ode | Phone Number | | Organization | | | | + + + + + | [facility] | [address] | [place] | [phone] | | [facility] | | [address] | | | - LABORATORY | | [...] mL/min/1.73m2 | [facility] | | | [place] | RATE,ESTIMATED | | MEDICAL | | | | mL/min/1.04j9Jsse than | | CENTER - | | [...] [address] | [place] | [phone] | | [facility] | | [address] | | | - LABORATORY | | [...] [address] | [place] | [phone] | | [facility] | | [address] | | | - LABORATORY | | [...] | | | | MD NAZARIO JON ([id number]) | | | | | | on [...]
--- OUTSIDE RECORDS SUMMARY | ~2019-10-11 | XMS | Encounter Summary ---
Demographics + + + | Address | [address] | | | [place] [address] | + + + | Home Phone [...] [place] | | | | | [address] | | + + + + + Care Team Providers + +------+ + | Care Clinical Administrator Name | Role | Phone | [...] + + | 02/26/ | Emergency | [facility] | [place], | CVA (cerebral | | 2015 | | MED CTR EMERGENCY | Davey Simons MD [address] | vascular accident) | | | | CENTER [address] | [address] [facility] | ([facility]) (Primary Dx) | | | | [place], [place] | [place] [address] | | | | | [address] | [phone] | | | | | [phone] | | | +--------+ + + + [...] + + + +---------+ + + | Paterson-3 Fatty | Take 1,000 mg by | [...] | | | | | [place] | | | | | | [address] | | | | | | | [...] mL/min/1.73m2 | [facility] | | | [place] | RATE,ESTIMATED | | MEDICAL | | | | mL/min/1.49j3Sgvc than | | CENTER - | | [...] | 9.1 | 8.3 - 10.5 | [facility] | | | | | mg/dL | [facility] | | | | | | MEDICAL | | | | | | CENTER - | | | | | | LABORATORY | | + + + + + + | Albumin | 3.7 | 3.2 - 5.0 g/dL | [facility] | | | | | | [facility] | | | | [...] | ine Ratio | | | [facility] | | [...] [address] | [place] | [phone] | | [facility] | | [address] | | | - LABORATORY | | [...] [facility] | | | | | | [facility] | | | | | | MEDICAL | | | | | | CENTER - | | | | | | LABORATORY | | + + + + + + | RBC | 4.21 | 3.70 - 5.20 | [facility] | | | | | M/uL | [facility] | | | | | [...] | Lymphocytes | | K/uL | [facility] | [...] [address] | [place] | [phone] | | [facility] | | [address] | | | - LABORATORY | | [...] | ---- | | | 02/26/2015 13:10 [facility] | | | Emergency -numbness/facial droop 02/26/2015 08:15 [facility] | | | [facility] 02/19/2015 | | | 10:15 [facility] | | | -Diabetes mellitus [...] as uncontrolled 02/17/2015 | | | 08:22 [facility] Emergency | | | -Long-term (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 [...] and uterus 02/14/2015 | | | 09:56 [facility] Emergency | | | -Disturbance of skin [...] status 02/06/2015 10:46 | | | [facility] | | | -Generalized pain [...] residual deficits | | | 02/01/2015 21:38 [facility] | | | Emergency 01/22/2015 14:00 [facility] | | | Urgent Care -Myalgia and [...] intervertebral disc | | | 01/16/2015 12:15 [facility] | | | Urgent Care -Unspecified acquired [...] other | | | medications 01/07/2015 11:45 [facility] | | | Urgent Care -Unspecified acquired [...] acquired hypothyroidism 12/30/2014 | | | 17:54 [facility] Emergency | | | -Obstructive sleep apnea [...] essential hypertension | | | 12/30/2014 14:30 [facility] | | | Urgent Care -Cramp of [...] | | -Cramp of limb 11/29/2014 16:15 [facility] | | | Urgent Care -Esophageal reflux [...] ------ | | | --------- [address] | | | [facility] [address] [facility] [address] | | | [facility] 7 0 Total | | | Note: Visits indicate total known visits. Medicaid [place] Dx are the | | | number of primary diagnoses on the [facility] non-emergent dx list. | | | | [...]
--- OUTSIDE RECORDS SUMMARY | ~2019-10-11 | XMS | Clinical Summary ---
Demographics + + + | Address | [address] | | | [place] [address] | + + + | Home Phone | | + + + | Preferred Language | Unknown | + + + | Marital Status | Single | + + + | Rastafari Affiliation | Unknown | + + + [...] [address] | | | | | [place] | | | | | [address] | | + + + + + Care Team Providers + +------+ + | Care Repair Clerk Name | Role | Phone | + +------+ + PCP | Unavailable | + +------+ + Source Comments EDWARD is fully live on both [facility] Ambulatory and [facility] InPatient.[facility] Allergies Not on File Medications Not [...] | [facility] | xxxxxxxxxx | 02/22/20 | [phone] | [address] | [facility] | | | RE A & | | 15-Pre | 1 | [address] | re | | | B | | sent | | [place] | | | | | | | | [address] | | + +--------+ +--------+ + +--------+ [...] Self | [birth year] | | [address] | | al/Fam | | 1955 | [phone] | [address] [place] | | | [place] | | | 5 (Home) | [address] | + +--------+ +--------+ + +"
--- OUTSIDE RECORDS SUMMARY | ~2019-10-11 | XMS | Encounter Summary ---
Demographics + + + | Address | [address] | | | [place] [address] | + + + | Home Phone [...] [place] | | | | | [address] | | + + + + + Care Team Providers + +------+ + | Care Mastic Sprayer Name | Role | Phone | + +------+ + | Basim Bolanos MD | PCP | | + +------+ + Encounter Details +--------+ + + + + | Date | Type | Department | Care Team | Description | +--------+ + + + + | 03/01/ | Abstract | [facility] [place] | [facility], | | | 2012 | | GASTROENTEROLOGY | [address]UNATO [address] | | | | | [address] | [place], [address] | | | | | [address] [place], [place] | [place], [place] | | | | | [address] | [address] | | | | | [phone] | | | +--------+ + + + [...] [place] | | | | | | [address] | | | | | | | | +--------+---------+ + + + documented as of this encounter Visit Diagnoses Not on filedocumented in this encounter"
--- OUTSIDE RECORDS SUMMARY | ~2019-10-11 | XMS | Encounter Summary ---
Demographics + + + | Address | [address] | | | [place] [address] | + + + | Home Phone [...] | Araceli [address]ible[address] | ECON | [place] | | | | | [address] | | + + + + + Care Team Providers + +------+ + | Care Ocular Care Technologist Name | Role | Phone | [...] | | | | | [address] | [place], [place] | | | | | [place], [place] | [address] | | | | | [address] | | | | | | [phone] | | | +--------+ + + + [...] [place] | | | | | | [address] | | | | | | | | +--------+---------+ + + + documented as of this encounter Visit Diagnoses Not on filedocumented in this encounter"
--- OUTSIDE RECORDS SUMMARY | ~2019-10-11 | XMS | Encounter Summary ---
Demographics + + + | Address | [address] | | | [place] [address] | + + + | Home Phone [...] [place] | | | | | [address] | | + + + + + Care Team Providers + +------+ + | Care Election Clerk Name | Role | Phone | + +------+ + | Adriano Patrick MD | PCP | | + +------+ + Reason for Visit +--------+ + | Reason | Comments | +--------+ + | Other | end of study | +--------+ + Encounter Details +--------+ + + + + | Date | Type | Department | Care Team | Description | +--------+ + + + + | 08/09/ | Documentati | [facility] | Katharine Moncada, | Other (end of study) | | 2019 | on | CARDIOLOGY [place] | Technologist | | | | | [address] | | | | | | [place], [place] | | | | | | [address] | | | | | | [phone] | | | +--------+ + + + [...] encounter Progress Notes Katharine Moncada, Technologist - 08/09/2019 11:59 PM PDT Cardiac Retail Merchandising Coordinator Date of Event Monitor: 08/09/19 Referring Physician: Lita Patient:Cindy Arndt : 1955 Age: 64 y.o. female INDICATIONS: Palpitations, Syncope and collapse Procedure: Continuous ambulatory ECG for the duration [...] hugo tricular ectopy. Recomendations: Clinical correlation suggested. Desiree Peterson DO documented in this enco unter [...] [place] | | | | | | [address] | | | | | | | | +--------+---------+ + + + documented as of this encounter Visit Diagnoses Not on filedocumented in this encounter"
--- OUTSIDE RECORDS SUMMARY | ~2019-10-11 | XMS | Encounter Summary ---
Demographics + + + | Address | [address] | | | [place] [address] | + + + | Home Phone | | + + + | Preferred Language | Unknown | + + + | Marital Status | Single | + + + | Gnosticist Affiliation | Unknown | + + + [...] [place] | | | | | [address] | | + + + + + Care Team Providers + +------+ + | Care State Director Name | Role | Phone | [...] | Transcriptions | + + | Interface, Tubular Products Fabricator In - 11/04/2006 3:03 AM PST | | [address] | | [place], [place] [address] [facility] | | ClinicsOPERATION RECORDMed Rec No.: [...] skin retractor was put in place. The [place] elevators wereused to separate the | | [...] no complications. | | | | Lazaro Telol M.D. | | Professor, Ophthalmology | |[facility]/edgar | | | | P | | | |cc: | + + documented in this encounter Visit Diagnoses Not on filedocumented in this encounter"
--- OUTSIDE RECORDS SUMMARY | ~2019-10-11 | XMS | Encounter Summary ---
Demographics + + + | Address | [address] | | | [place] [address] | + + + | Home Phone [...] [place], [place] | | | | | [address] | | + + + + + Care Team Providers + +------+ + | Care Pie Topper Name | Role | Phone | + +------+ + PCP | Unavailable | + +------+ + Encounter Details +--------+ + + + + | Date | Type | Department | Care Team | Description | +--------+ + + + + | 12/22/ | Hospital | [facility] | | | | 1993 - | Encounter | MED CTR GENERIC PSY | | | | | | CONV DEPT [address] | | | | 12/25/ | | [place], | | | | 1993 | | [place] [address] | | | | | | [phone] | | | +--------+ + + + [...] [place] | | | | | | [address] | | | | | | | | +--------+---------+ + + + documented as of this encounter Visit Diagnoses Not on filedocumented in this encounter"
--- OUTSIDE RECORDS SUMMARY | ~2019-10-11 | XMS | Encounter Summary ---
Demographics + + + | Address | [address] | | | [place] [address] | + + + | Home Phone [...] + + + + + | Araceli Sbiley | ECON | [place], [place] | | | | | [address] | | + + + + + Care Team Providers + +------+ + | Care Traffic Signal Supervisor Maintenance Name | Role | Phone | + +------+ + PCP | Unavailable | + +------+ + Encounter Details +--------+ + + + + | Date | Type | Department | Care Team | Description | +--------+ + + + + | 02/22/ | Hospital | [facility] | | | | 1996 | Encounter | MED CTR EMERGENCY | | | | | | [address] | | | | | | [place] | | | | | | [address] | | | | | | [phone] | | | +--------+ + + + [...] | | | | | [place] | | | | | | [id number] | | | | | | | | +--------+---------+ + + + documented as of this encounter Visit Diagnoses Not on filedocumented in this encounter"
--- OUTSIDE RECORDS SUMMARY | ~2019-10-11 | XMS | Encounter Summary ---
Demographics + + + | Address | [address] | | | [place] [address] | + + + | Home Phone [...] [place] | | | | | [address] | | + + + + + Care Team Providers + +------+ + | Care Deputy Manager Name | Role | Phone | [...] + + | 09/10/ | Documentati | [facility] | Katharine Moncada, | Other (urgent | | 2019 | on | CARDIOLOGY [place] | Technologist | report) | | | | [address] | | | | | | [place] | | | | | | [address] | | | | | | [phone] | | | +--------+ + + + [...] [place] | | | | | | [address] | | | | | | | | +--------+---------+ + + + documented as of this encounter Visit Diagnoses Not on filedocumented in this encounter"
--- OUTSIDE RECORDS SUMMARY | ~2019-10-11 | XMS | Encounter Summary ---
Demographics + + + | Address | [address] | | | [place] [address] | + + + | Home Phone [...] [place], [place] | | | | | [address] | | + + + + + Care Team Providers + +------+ + | Care Trimming Operator Name | Role | Phone | + +------+ + PCP | Unavailable | + +------+ + Encounter Details +--------+ + + + + | Date | Type | Department | Care Team | Description | +--------+ + + + + | 12/09/ | Hospital | [facility] | Serafin Bautista | | | 2012 | Encounter | MED CTR XRAY [address] | T, MD [address] | | | | | [place] | [place], [place] | | | | | [place] [address] | [address] | | | | | [phone] | | | +--------+ + + + [...] [place] | | | | | | [address] | | | | | | | [...] Performed At | + + + | [facility] Diagnostic Imaging Department | [facility] | | [address] | [facility] | | PROCEDURE NOTE EPIDURAL | [...] Manohar Martinez Conversion - 11/30/2013 4:45 PM [facility] | | Diagnostic Imaging Department | | [address] | | | | | [...] [place] | | | | | [facility] | | | | + +---------+ + + documented in this encounter Visit Diagnoses Not on filedocumented in this encounter"
--- OUTSIDE RECORDS SUMMARY | ~2019-10-11 | XMS | Encounter Summary ---
Demographics + + + | Address | [address] | | | [place] [address] | + + + | Home Phone | | + + + | Preferred Language | Unknown | + + + | Marital Status | Single | + + + | Anglican Affiliation | Unknown | + + + [...] [place] | | | | | [address] | | + + + + + Care Team Providers + +------+ + | Care Psych Assistant Name | Role | Phone | [...] Rd | | | | | | [place], [place] | | | | | | [address] | | | +--------+ + + + [...]
--- OUTSIDE RECORDS SUMMARY | ~2019-10-11 | XMS | Encounter Summary ---
Demographics + + + | Address | [address] | | | [place] [address] | + + + | Home Phone [...] [place] | | | | | [address] | | + + + + + Care Team Providers + +------+ + | Care Clinical Cytogeneticist Scientist Name | Role | Phone | [...] | | | spondylolist | | [address] | | | | | hesis | | [place], | | | | | Spinal | | [place] [address] | | | | | stenosis, | | Phone: | | | | | lumbar | | [phone] | | | | | region, | | Fax: | | | | | without | | [phone] | | | | | neurogenic | [...] | | | | | | | MA ARTHDSIS | | | | | | [...] | | | | | | ION MA | | | | | | | [...] | | | | | | SEG MA | | | | | | | [...] + + | 07/02/ | Hospital | [facility] | Frandy Teresa, | Degenerative disc | | 2013 - | Encounter | MED CTR SURGICAL | DO [address] | disease, lumbar | | | | [address] | [place] [address] [place] | (Primary Dx); | | 07/05/ | | [place] [address] | [id number] | Diabetes mellitus | | 2013 | | [phone] | | ([facility]); Disturbance | | | | | | [...] Stable for discharge to SNF. DISPOSITION: SNF ([facility]) DISCHARGE MEDICATIONS Medications prior to [...] Take 15 mg by mouth nightl y. [place]-3 Fatty Acids (FISH OIL CONCENTRATE) 1000 MG [...] + + + +---------+ + + | [place]-3 Fatty | Take 1,000 mg by | [...] prophylaxis -DC plan: SNF versus home with [facility] any time. Maria T Storm RN - 07/04/2014 6:56 PM PDTFoley cath dc'd and MARI drain dc'd no problems. Chris Lynn PA-C - 07/04/2014 7:43 AM PDT [facility] PROGRESS NOTE Pt. Name/Age/: Cindy Arndt 58 y.o. 1955 Med. Record Number: [id number] Date of admission: 07/02/2014 Subjective: The patient [...] home medications. D/C plan: Home tomorrow with [facility]. D/c mari drain and riley cath today. 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 Patient Active Problem List Diagnosis LUMBAR DISC [...] by: Chris Nicole, 07/04/2014 7:45 [facility] Chris Lynn PA-C - 07/03/2014 7:13 AM PDT . [facility] PROGRESS NOTE Pt. Name/Age/: Cindy Arndt 58 y.o. 1955 Med. Record Number: [id number] Date of admission: 07/02/2014 Subjective: The patient [...] Electronically signed by: Chris Nicole, 07/03/2014 7:13 [facility] Menjivar, KRIS - 07/03/2014 6:50 AM [...] [place] | | | | | | [address] | | | | | | | [...] + | [facility] | [address] | [place], [place] | [phone] | | [facility] | | [address] | | | - LABORATORY | | | | + + + + + | [facility] | [address] | [place], [place] | | | [facility] | | [address] | | | - LABORATORY | | [...] + | [facility] | [address] | [place] | [phone] | | [facility] | | [address] | | | - LABORATORY | | | | + + + + + | [facility] | [address] | [place] | | | [facility] | | [address] | | | - LABORATORY | | [...] + | [facility] | [address] | [place] | [phone] | | [facility] | | [address] | | | - LABORATORY | | | | + + + + + | [facility] | [address] | [place] | | | [facility] | | [address] | | | - LABORATORY | | [...] + | [facility] | [address] | [place], [place] | [phone] | | [facility] | | [address] | | | - LABORATORY | | | | + + + + + | [facility] | [address] | [place], [place] | | | [facility] | | [address] | | | - LABORATORY | | [...] + | [facility] | [address] | [place] | [phone] | | [facility] | | [address] | | | - LABORATORY | | | | + + + + + | [facility] | [address] | [place] | | | [facility] | | [address] | | | - LABORATORY | | [...] + | [facility] | [address] | [place] | [phone] | | [facility] | | [address] | | | - LABORATORY | | | | + + + + + | [facility] | [address] | [place] | | | [facility] | | [address] | | | - LABORATORY | | [...] [address] | [place] | [phone] | | [facility] | | [address] | | | - LABORATORY | | | | + + + + + | [facility] | [address] | [place] | | | [facility] | | [address] | | | - LABORATORY | | [...] + | [facility] | [address] | [place], [place] | [phone] | | [facility] | | [address] | | | - LABORATORY | | | | + + + + + | [facility] | [address] | [place], [place] | | | [facility] | | [address] | | | - LABORATORY | | [...] [address] | [place] | [phone] | | [facility] | | [address] | | | - LABORATORY | | | | + + + + + | [facility] | [address] | [place], [place] | | | [facility] | | [address] | | | - LABORATORY | | [...] | of hardware for posterior fusion from S6myrxruz S1 with interbody hardware at L5-S1. The [...] + + | Performing | Address | City/State/[facility] | Phone Number | | Organization | | | | + +---------+ + + | MISCELLANEOUS LAB | | | [phone] | + +---------+ + + | MISCELANIOUS LAB | | | [phone] | + +---------+ + + POC Glucose [...] + | [facility] | [address] | [place], [place] | [phone] | | [facility] | | [address] | | | - LABORATORY | | | | + + + + + | [facility] | [address] | [place], [place] | | | [facility] | | [address] | | | - LABORATORY | | [...] + | [facility] | [address] | [place] | [phone] | | [facility] | | [address] | | | - LABORATORY | | | | + + + + + | [facility] | [address] | [place] | | | [facility] | | [address] | | | - LABORATORY | | [...] | | | POC | | | [facility] | | | | | | MEDICAL [...] + | [facility] | [address] | [place] | [phone] | | [facility] | | [address] | | | - LABORATORY | | | | + + + + + | [facility] | [address] | [place] | | | [facility] | | [address] | | | - LABORATORY | | [...] + | [facility] | [address] | [place], [place] | [phone] | | [facility] | | [address] | | | - LABORATORY | | | | + + + + + | [facility] | [address] | [place] | | | [facility] | | [address] | | | - LABORATORY | | [...] + | [facility] | [address] | [place] | [phone] | | [facility] | | [address] | | | - LABORATORY | | | | + + + + + | [facility] | [address] | [place] | | | [facility] | | [address] | | | - LABORATORY | | [...] | | | [facility] | | [address] | | | - BLOOD BANK | [...] + +---------+ +---+---+---+ | morphine 5 mg/mL ELECTRICIAN SHOP syringe | New Bag | 07/02/20 | [...] | | | | Dose(mg): 0, Starting ELECTRICIAN SHOP | | | | | | | Dose(mg): 1, Incremental Increase | | | | | | | ELECTRICIAN SHOP Dose(mg): 0.5, Maximum ELECTRICIAN SHOP | | | | | | | [...]
--- OUTSIDE RECORDS SUMMARY | ~2019-10-11 | XMS | Encounter Summary ---
Demographics + + + | Address | [address] | | | [place] [address] | + + + | Home Phone [...] [place], [place] | | | | | [address] | | + + + + + Care Team Providers + +------+ + | Care Fisher Lampara Net Name | Role | Phone | + +------+ + PCP | Unavailable | + +------+ + Encounter Details +--------+ + + + + | Date | Type | Department | Care Team | Description | +--------+ + + + + | 06/30/ | Hospital | [facility] | | | | 2000 | Encounter | MED CTR EMERGENCY | | | | | | [address] | | | | | | [place] | | | | | | [address] | | | | | | [phone] | | | +--------+ + + + [...] | | | | | [place] | | | | | | [address] | | | | | | | | +--------+---------+ + + + documented as of this encounter Visit Diagnoses Not on filedocumented in this encounter"
--- OUTSIDE RECORDS SUMMARY | ~2019-10-11 | XMS | Encounter Summary ---
Demographics + + + | Address | [address] | | | [place] [address] | + + + | Home Phone [...] [place] | | | | | [address] | | + + + + + Care Team Providers + +------+ + | Care Brand Marketing Specialist Name | Role | Phone | + +------+ + | Adriano Patrikc MD | PCP | | + +------+ + Reason for Visit +--------+ + | Reason | Comments | +--------+ + | Other | urgent report | +--------+ + Encounter Details +--------+ + + + + | Date | Type | Department | Care Team | Description | +--------+ + + + + | 08/13/ | Documentati | [facility] | Katharine Moncada, | Other (urgent | | 2019 | on | CARDIOLOGY [place] | Technologist | report) | | | | [address] | | | | | | [place] | | | | | | [address] | | | | | | [phone] | | | +--------+ + + + [...] [place] | | | | | | [address] | | | | | | | | +--------+---------+ + + + documented as of this encounter Visit Diagnoses Not on filedocumented in this encounter"
--- OUTSIDE RECORDS SUMMARY | ~2019-10-11 | XMS | Encounter Summary ---
Demographics + + + | Address | [address] | | | [place] [address] | + + + | Home Phone [...] [place] | | | | | [address] | | + + + + + Care Team Providers + +------+ + | Care Associate Engineer Name | Role | Phone | + +------+ + | Natalee Andersen NP | PCP | | + +------+ + Encounter Details +--------+ + + + + | Date | Type | Department | Care Team | Description | +--------+ + + + + | 06/26/ | Hospital | [facility] | Heather Cordero PT | | | 2014 | Encounter | MED CTR ACUTE | [address] | | | | | PHYSICAL THERAPY | [place] | | | | | [address] [place] | [address] | | | | | [place] [address] | | | | | | [phone] | | | +--------+ + + + [...] + + + +---------+ + + | [place]-3 Fatty | Take 1,000 mg by | [...] [place] | | | | | | [address] | | | | | | | | +--------+---------+ + + + documented as of this encounter Visit Diagnoses Not on filedocumented in this encounter"
--- OUTSIDE RECORDS SUMMARY | ~2019-10-11 | XMS | Encounter Summary ---
Demographics + + + | Address | [address] | | | [place] [address] | + + + | Home Phone | | + + + | Preferred Language | Unknown | + + + | Marital Status | Single | + + + | Amish Affiliation | Unknown | + + + | Race | White | + + + | Ethnic Group | Not or | + + + Author + + + | Author | [facility] | + + + | Organization | [facility] | + + + | Address | Unknown | + + + | Phone | Unavailable | + + + Support + + + + + | Name | Relationship | Address | Phone | + + + + + | Kelsy Bautista | ECON | [address] | | | | | [place] | | | | | [address] | | + + + + + Care Team Providers + +------+ + | Care Coffee Farmer Name | Role | Phone | [...] | | | | | | [place], | | | | | | [place] [address] | | | | | | [phone] | | | +--------+ + + + [...] | | + +---------+ + + | [facility] DEPARTMENT OF | | | | | RADIOLOGY | | | | + +---------+ + + documented in this encounter Visit Diagnoses Not on filedocumented in this encounter"
--- OUTSIDE RECORDS SUMMARY | ~2019-10-11 | XMS | Encounter Summary ---
Demographics + + + | Address | [address] | | | [place] [address] | + + + | Home Phone [...] [place] | | | | | [address] | | + + + + + Care Team Providers + +------+ + | Care Activity Assistant Name | Role | Phone | [...] + + | 07/01/ | Telephone | [facility] | Frandy Teresa, | Other (Surgery ) | | 2013 | | NEUROSURGERY [address] | DO [address] | | | | | [address] | [address] [place], [place] | | | | | [place], [place] | [address] | | | | | [address] | | | | | | [phone] | | | +--------+ + + + [...] [place] | | | | | | [address] | | | | | | | | +--------+---------+ + + + documented as of this encounter Visit Diagnoses Not on filedocumented in this encounter"
--- OUTSIDE RECORDS SUMMARY | ~2019-10-11 | XMS | Encounter Summary ---
Demographics + + + | Address | [address] | | | [place] [address] | + + + | Home Phone [...] [place] | | | | | [address] | | + + + + + Care Team Providers + +------+ + | Care Mattress Spring Encaser Name | Role | Phone | + [...] + + | 08/15/ | Documentati | [facility] | Katharine Moncada, | Other (urgent | | 2019 | on | CARDIOLOGY [place] | Technologist | report) | | | | [address] | | | | | | [place] | | | | | | [address] | | | | | | [phone] | | | +--------+ + + + [...] [place] | | | | | | [address] | | | | | | | | +--------+---------+ + + + documented as of this encounter Visit Diagnoses Not on filedocumented in this encounter"
--- OUTSIDE RECORDS SUMMARY | ~2019-10-11 | XMS | Encounter Summary ---
Demographics + + + | Address | [address] | | | [place] [address] | + + + | Home Phone [...] [place], [place] | | | | | [address] | | + + + + + Care Team Providers + +------+ + | Care Manager Product Marketing Name | Role | Phone | + +------+ + PCP | Unavailable | + +------+ + Encounter Details +--------+ + + + + | Date | Type | Department | Care Team | Description | +--------+ + + + + | 09/23/ | Hospital | [facility] | | | | 1994 | Encounter | MED CTR LABORATORY | | | | | | [address] | | | | | | [place] | | | | | | [address] | | | | | | [phone] | | | +--------+ + + + [...] | | | | | [place] | | | | | | [address] | | | | | | | | +--------+---------+ + + + documented as of this encounter Visit Diagnoses Not on filedocumented in this encounter"
--- OUTSIDE RECORDS SUMMARY | ~2019-10-11 | XMS | Encounter Summary ---
Demographics + + + | Address | [address] | | | [place] [address] | + + + | Home Phone [...] [place] | | | | | [address] | | + + + + + Care Team Providers + +------+ + | Care Barrel Bander Name | Role | Phone | + +------+ + PCP | Unavailable | + +------+ + Encounter Details +--------+ + + + + | Date | Type | Department | Care Team | Description | +--------+ + + + + | 04/27/ | Hospital | [facility] | Sage Garza MD | | | 2001 | Encounter | HOSPITAL EMERGENCY | | | | | | CENTER [address] | | | [address] [place], [place] | | | | | | [address] | | | | | | [phone] | | | +--------+ + + + [...] [place] | | | | | | [address] | | | | | | | | +--------+---------+ + + + documented as of this encounter Visit Diagnoses Not on filedocumented in this encounter"
--- OUTSIDE RECORDS SUMMARY | ~2019-10-11 | XMS | Encounter Summary ---
Demographics + + + | Address | [address] | | | [place] [address] | + + + | Home Phone [...] [place], [place] | | | | | [address] | | + + + + + Care Team Providers + +------+ + | Care Tag Clerk Name | Role | Phone | + +------+ + PCP | Unavailable | + +------+ + Encounter Details +--------+ + + + + | Date | Type | Department | Care Team | Description | +--------+ + + + + | 04/01/ | Hospital | [facility] | | | | 1998 | Encounter | MED CTR XRAY [address] | | | | | [address] | | | | | | [place] [address] | | | | | | [phone] | | | +--------+ + + + [...] | | | | | [place] | | | | | | [address] | | | | | | | | +--------+---------+ + + + documented as of this encounter Visit Diagnoses Not on filedocumented in this encounter"
--- OUTSIDE RECORDS SUMMARY | ~2019-10-11 | XMS | Encounter Summary ---
Demographics + + + | Address | [address] | | | [place] [address] | + + + | Home Phone [...] [place] | | | | | [address] | | + + + + + Care Team Providers + +------+ + | Care Director Hydrogen Storage Engineering Name | Role | Phone | + [...] | | | | | Procedures | [address] | [address] | | | | | [place] OFFICE | | [address] | | | | | CONSULTATION | [address] | [place] | | | | | NEW/ESTAB | [facility], | [address] Phone: | | | | | PATIENT 60 | [place] [address] | [phone] | | | | | MIN | Phone: | Fax: | | | | | | [phone] | [phone] | | | | | | Fax: | | | | | | | [phone] | | +--------+--------+ + + + + Encounter Details +--------+---------+ + + + | Date | Type | Department | Care Team | Description | +--------+---------+ + + + | 05/02/ | Office | [facility] | Frandy Teresa, | Spondylolisthesis of | | 2013 | Visit | NEUROSURGERY [address] | DO [address] | lumbar region | | | | [address] | [address] [place], [place] | (Primary Dx); Lumbar | | | | [place], [place] | [id number] | stenosis; Lumbar | | | | [address] | | radicular pain; | | | | [phone] | | Lumbago | +--------+---------+ + + [...] [facility] [address] [place] [address] FAX: NEUROSURGERY HISTORY AND PHYSICAL EXAMINATION CHIEF [...] Take 15 mg by mouth nightl y. [place]-3 Fatty Acids (FISH OIL CONCENTRATE) 1000 MG [...] no apparent deficits with short or terminal supervisor memory. CRANIAL NERVES: II: Acuity is intact. [...] Intrinsics 5 5 Ulnar Intrinsics 5 5 Haunted History Tour Guide Strength 5 5 Hip Flexion 5 4* [...] | | | | | [place] | | | | | | [address] | | | | | | | [...]
--- OUTSIDE RECORDS SUMMARY | ~2019-10-11 | XMS | Encounter Summary ---
Demographics + + + | Address | [address] | | | [place] [address] | + + + | Home Phone [...] [place], [place] | | | | | [address] | | + + + + + Care Team Providers + +------+ + | Care Associate Financial Advisor Name | Role | Phone | + +------+ + PCP | Unavailable | + +------+ + Encounter Details +--------+ + + + + | Date | Type | Department | Care Team | Description | +--------+ + + + + | 12/24/ | Hospital | [facility] | | | | 1998 | Encounter | MED CTR XRAY [address] | | | | | | [address] | | | | | | [place] [address] | | | | | | [phone] | | | +--------+ + + + [...] | | | | | [place] | | | | | | [address] | | | | | | | | +--------+---------+ + + + documented as of this encounter Visit Diagnoses Not on filedocumented in this encounter"
--- OUTSIDE RECORDS SUMMARY | ~2019-10-11 | XMS | Encounter Summary ---
Demographics + + + | Address | [address] | | | [place] [address] | + + + | Home Phone [...] [place], [place] | | | | | [address] | | + + + + + Care Team Providers + +------+ + | Care Print Machine Operator Name | Role | Phone | + +------+ + PCP | Unavailable | + +------+ + Encounter Details +--------+ + + + + | Date | Type | Department | Care Team | Description | +--------+ + + + + | 02/24/ | Hospital | [facility] | | | | 1997 | Encounter | MED CTR EMERGENCY | | | | | | [address] | | | | | | [place] | | | | | | [address] | | | | | | [phone] | | | +--------+ + + + [...] | | | | | [place] | | | | | | [address] | | | | | | | | +--------+---------+ + + + documented as of this encounter Visit Diagnoses Not on filedocumented in this encounter"
--- OUTSIDE RECORDS SUMMARY | ~2019-10-11 | XMS | Encounter Summary ---
Demographics + + + | Address | [address] | | | [place] [address] | + + + | Home Phone [...] [place], [place] | | | | | [address] | | + + + + + Care Team Providers + +------+ + | Care Steersman Name | Role | Phone | + +------+ + PCP | Unavailable | + +------+ + Encounter Details +--------+ + + + + | Date | Type | Department | Care Team | Description | +--------+ + + + + | 12/27/ | Hospital | [facility] | | | | 1997 | Encounter | MED CTR EMERGENCY | | | | | | [address] | | | | | | [place] | | | | | | [address] | | | | | | [phone] | | | +--------+ + + + [...] | | | | | [place] | | | | | | [address] | | | | | | | | +--------+---------+ + + + documented as of this encounter Visit Diagnoses Not on filedocumented in this encounter"
--- OUTSIDE RECORDS SUMMARY | ~2019-10-11 | XMS | Encounter Summary ---
Demographics + + + | Address | [address] | | | [place] [address] | + + + | Home Phone [...] [place] | | | | | [address] | | + + + + + Care Team Providers + +------+ + | Care Hand Assembler Name | Role | Phone | + +------+ + | Adriano Patrick MD | PCP | | + +------+ + Encounter Details +--------+ + + + + | Date | Type | Department | Care Team | Description | +--------+ + + + + | 06/10/ | Abstract | [facility] | Thierry Fry | | | 2014 | | MEDICINE [address] | MD Lisa [address] | | | | | [address] [place] | [address] [place] | | | | | [place] [address] | [address] | | | | | [phone] | | | +--------+ + + + [...] | | | | | [place] | | | | | | [address] | | | | | | | [...]
--- OUTSIDE RECORDS SUMMARY | ~2019-10-11 | XMS | Encounter Summary ---
Demographics + + + | Address | [address] | | | [place] [address] | + + + | Home Phone [...] [place] | | | | | [address] | | + + + + + Care Team Providers + +------+ + | Care Construction Consultant Name | Role | Phone | [...] + | 07/19/ | Telephone | [facility] | Frandy Teresa, | Appointment | | 2013 | | NEUROSURGERY [address] | DO [address] | | | | | [address] | [address] [place], [place] | | | | | [place], [place] | [address] | | | | | [address] | | | | | | [phone] | | | +--------+ + + + [...] [place] | | | | | | [address] | | | | | | | | +--------+---------+ + + + documented as of this encounter Visit Diagnoses Not on filedocumented in this encounter"
--- OUTSIDE RECORDS SUMMARY | ~2019-10-11 | XMS | Encounter Summary ---
Demographics + + + | Address | [address] | | | [place] [address] | + + + | Home Phone [...] [place] | | | | | [address] | | + + + + + Care Team Providers + +------+ + | Care Nurse Transplant Name | Role | Phone | + [...] + + | 08/09/ | Documentati | [facility] | Katharine Moncada, | Other (end of study) | | 2019 | on | CARDIOLOGY FRIENDSHIP | Technologist | | | | | [address] | | | | | | [place], [place] | | | | | | [address] | | | | | | [phone] | | | +--------+ + + + [...] Technologist - 08/09/2019 11:59 PM PDT Cardiac Social Worker Palliative Care Date of Event Monitor: 08/09/19 Referring Physician: [...] [place] | | | | | | [address] | | | | | | | | +--------+---------+ + + + documented as of this encounter Visit Diagnoses Not on filedocumented in this encounter"
--- OUTSIDE RECORDS SUMMARY | ~2019-10-11 | XMS | Encounter Summary ---
Demographics + + + | Address | [address] | | | [place] [address] | + + + | Home Phone [...] [place], [place] | | | | | [address] | | + + + + + Care Team Providers + +------+ + | Care Traveling Nurse Name | Role | Phone | + +------+ + PCP | Unavailable | + +------+ + Encounter Details +--------+ + + + + | Date | Type | Department | Care Team | Description | +--------+ + + + + | 01/26/ | Hospital | [facility] | Dale, Heath E A, | | | 2012 | Encounter | MED CTR XRAY [address] | MD [address] | | | | | [place] | [place] | | | | | [place] [address] | [address] | | | | | [phone] | | | +--------+ + + + [...] [place] | | | | | | [address] | | | | | | | [...] Performed At | + + + | [facility] Diagnostic Imaging Department | [facility] | | [address] | [facility] | | BILATERAL KNEES, THREE VIEWS: [...] Transcribed | | | Date/Time: 01/27/2012 17:18 Personal Investment Adviser: | | | <Electronically Signed by Willie Perry MD> 01/27/12 [id number] | | + + + + + | Procedure Note | + + | Juan, Rad Conversion - 11/30/2013 5:03 PM [facility] | | Diagnostic Imaging Department [address] [place] [address] | | BILATERAL KNEES, THREE VIEWS: 01/27/2012 [...] 17:12 | |Transcribed Date/Time: 01/27/2012 17:18 | |Personal Investment Adviser: | |<Electronically Signed by Willie Perry MD> 01/27/12 [phone] | + + + +---------+ + + | Performing | Address | City/State/Zipcode | Phone Number | | Organization | | | | + +---------+ + + | [place] | | | | | [place] | | | | + +---------+ + + documented in this encounter Visit Diagnoses Not on filedocumented in this encounter"
--- OUTSIDE RECORDS SUMMARY | ~2019-10-11 | XMS | Encounter Summary ---
Demographics + + + | Address | [address] | | | [place] [address] | + + + | Home Phone [...] [place] | | | | | [address] | | + + + + + Care Team Providers + +------+ + | Care Data Keyer Name | Role | Phone | + [...] | | | | | mellitus, | [address] | [place] | | | | | controlled | Phone: | [address] | | | | | (HCC) | [phone] | Phone: | | | | | History of | Fax: | [phone] | | | | | gastric | [phone] | Fax: | | | | | restrictive | | [phone] | | | | | surgery | [...] | Required | | hypertension | [address] [facility] | | | | | Lumbar | AVE [place] | [address] | | | | | radiculopath | [place], [place] | AVE | | | | | y Type 2 | [address] | [place] | | | | | diabetes | Phone: | [address] | | | | | mellitus, | [phone] | Phone: | | | | | controlled | Fax: | [phone] | | | | | (HCC) | [phone] | Fax: | | | | | Obesity, | | [phone] | | | | | Class III, [...] | | FORTUNATO & Katharine BUCIO in [place]. | + + + | Other | [...] + + | 03/06/ | Office | [facility] | Katharine Cardona PA-C | Hypothyroidism due | | 2014 | Visit | MEDICINE [address] | [address] [facility] | to acquired atrophy | | | | Street [place] | [place] [address] | of thyroid (Primary | | | | [place] [address] | [phone] | Dx); Essential | | | | [phone] | | hypertension; Iron | | | [...] | | | | | | ([facility]); Environmental | | | | | | [...] | | | | | obesity) ([facility]); | | | | | | Type 2 diabetes | | | | | | mellitus, controlled | | | | | | ([facility]); Preventative | | | | | | [...] t be different from the original. Ask [facility] if they think it might be helpful [...] Cont your meds as prescribed. F/U with [facility] as scheduled Neuropathy Continue gabapentin. May consider increase if pain is not controlled. May benefit from switching from Paxil to one of the SNRIs or TCAs for analgesic effects, holly manju, she is doing so well on her current regimen it may not be worth making any changes an d find alternate ways to deal with the pain. Would be worth discussing with [facility] Psych Back Pain Will refer to water therapy (aqua fitness) at [facility] as request ed. ROGERS [...] procedures 4. Schizoaffective disorder, bipolar type ([facility]) 5. Neuropathy Vitamin B-12 6. BACK PAIN, LUMBAR, WITH RADICULOPATHY Ambulatory referral to Physical Therapy 7. ROGERS on CPAP 8. Stroke ([facility]) 9. Environmental and seasonal allergies fluticasone (FLONASE) 50 mcg/nasal spray 10. Gastroesophageal reflux disease without esophagitis dexlansoprazole (DEXILANT) 60 mg D R capsule 11. History of gastric restrictive surgery Vitamin D, 25-Hydroxy Nutrition Services - External - AMB Referral 12. Obesity, Class III, BMI 40-49.9 (morbid obesity) ([facility]) Ambulatory referral to Physical Therapy Nutrition Services - External - AMB Referral 13. Type 2 diabetes mellitus, controlled ([facility]) Ambulatory referral to Physical Therapy Nutrition Services [...] Cont your meds as prescribed. F/U with [facility] as scheduled Neuropathy Continue gabapentin. May consider [...] the pain. Would be worth discussing with [facility] professional. Back Pain Will refer to water therapy (aqua fitness) at [facility] as request ed. Cont home exercise, [...] plan. The above note was dictated using Gogoyoko voice recognition software. It may have not been proofread in entirety. Minor errors in grammar may occur. CHIEF COMPLAINT Chief Complaint Patient presents with Establish Care Presents to establish care. Former patient of Natalee BUCIO & Katharine BUCIO in [place]. Other Possible stroke January 2015. Is now [...] auditory, at 36. 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 She is now very well controlled on Saphris, Depakote, and Paxi l. She is followed by [facility] in [place]. She has DM2 that is well controlled [...] worked up by steve rowe, Dr [place], [place]. More recently, she presented to ED with [...] Laterality: N/A; Surgeon: Frandy castellanos DO; Location: [facility] MAIN OR SOCIAL HISTORY History Social [...] mg by mouth Daily. Cholecalciferol (VITAMIN D-3) 98766 units CAPS Oral Take 50,000 Units by [...] Oral Take 10 mg by mouth nightly. [place]-3 Fatty Acids (FISH OIL CONCENTRATE) 1000 MG [...] [place] | | | | | | [id number] | | | | | | | [...] | | | | | controlled ([facility]) | | | | | | Obesity, Class III, | | | | | | BMI 40-49.9 (morbid | | | | | | obesity) ([facility]) | | + + +--------+ + + | Nutrition Services - | Outpatient | Routin | Iron deficiency | Ordered: 03/06/2015 | | External - AMB | Referral | e | anemia Type 2 | | | Referral | | | diabetes mellitus, | | | | | | controlled ([facility]) | | | | | | History of gastric | | | | | | restrictive surgery | | | | | | Obesity, Class III, | | | | | | BMI 40-49.9 (morbid | | | | | | obesity) ([facility]) | | + + +--------+ + + [...] 12 | 7 - 18 mg/dL | [facility] | | | | | | [facility] | | | [facility] | [facility] | | | | | | [facility] - | | | | | | LABORATORY | | + + + + + + | Creatinine | 0.66 | 0.60 - 1.30 | [facility] | | | | | mg/dL | [facility] | | | | | | [facility] | | | | | | C[facility] - | | | | | | LABORATORY | | + + + + + + | eGFR if not | >60Comment: GLOMERULAR | >=60 | [facility] | | | | FILTRATION | mL/min/1.73m2 | [facility] | | | [facility] | RATE,ESTIMATED | | MEDICAL | | | | mL/min/1.99m1Tuco than | | CENTER - | | [...] [address] | [place] | [phone] | | [facility] | | [address] | | | - LABORATORY | | [...] | Type 2 diabetes mellitus, controlled ([facility]) Type II or unspecified type diabetes | | mellitus without mention of complication, not stated as uncontrolled | + + | Preventative health care Routine general medical examination at a health care | | facility | + + documented in this encounter
--- OUTSIDE RECORDS SUMMARY | ~2019-10-11 | XMS | Encounter Summary ---
Demographics + + + | Address | [address] | | | [place] [address] | + + + | Home Phone [...] [place], [place] | | | | | [address] | | + + + + + Care Team Providers + +------+ + | Care Supply Specialist Name | Role | Phone | + +------+ + PCP | Unavailable | + +------+ + Encounter Details +--------+ + + + + | Date | Type | Department | Care Team | Description | +--------+ + + + + | 09/23/ | Hospital | [facility] | | | | 1994 | Encounter | MED CTR LABORATORY | | | | | | [address] | | | | | | [place] | | | | | | [address] | | | | | | [phone] | | | +--------+ + + + [...] | | | | | [place] | | | | | | [address] | | | | | | | | +--------+---------+ + + + documented as of this encounter Visit Diagnoses Not on filedocumented in this encounter"
--- OUTSIDE RECORDS SUMMARY | ~2019-10-11 | XMS | Encounter Summary ---
Demographics + + + | Address | [address] | | | [place] [address] | + + + | Home Phone [...] [place] | | | | | [address] | | + + + + + Care Team Providers + +------+ + | Care Director Public Policy Name | Role | Phone | + [...] + + | 09/10/ | Documentati | [facility] | Katharine Moncada, | Other (urgent | | 2019 | on | CARDIOLOGY [place] | Technologist | report) | | | | [address] | | | | | | [place] | | | | | | [address] | | | | | | [phone] | | | +--------+ + + + [...] [place] | | | | | | [address] | | | | | | | | +--------+---------+ + + + documented as of this encounter Visit Diagnoses Not on filedocumented in this encounter"
--- OUTSIDE RECORDS SUMMARY | ~2019-10-11 | XMS | Encounter Summary ---
Demographics + + + | Address | [address] | | | [place] [address] | + + + | Home Phone [...] [place] | | | | | [address] | | + + + + + Care Team Providers + +------+ + | Care Insurance Assistant Name | Role | Phone | [...] + + | 08/20/ | Documentati | [facility] | Katharine Moncada, | Other (urgent | | 2019 | on | CARDIOLOGY [place] | Technologist | report) | | | | [address] | | | | | | [place] | | | | | | [address] | | | | | | [phone] | | | +--------+ + + + [...] [place] | | | | | | [address] | | | | | | | | +--------+---------+ + + + documented as of this encounter Visit Diagnoses Not on filedocumented in this encounter"
--- OUTSIDE RECORDS SUMMARY | ~2019-10-11 | XMS | Encounter Summary ---
Demographics + + + | Address | [address] | | | [place] [address] | + + + | Home Phone [...] [place], [place] | | | | | [address] | | + + + + + Care Team Providers + +------+ + | Care Strategic Accounts Manager Name | Role | Phone | + +------+ + PCP | Unavailable | + +------+ + Encounter Details +--------+ + + + + | Date | Type | Department | Care Team | Description | +--------+ + + + + | 02/22/ | Hospital | [facility] | | | | 1996 - | Encounter | MED CTR GENERIC PSY | | | | | | CONV DEPT [address] | | | | 02/26/ | | [place], | | | | 1996 | | [place] [address] | | | | | | [phone] | | | +--------+ + + + [...] [place] | | | | | | [address] | | | | | | | | +--------+---------+ + + + documented as of this encounter Visit Diagnoses Not on filedocumented in this encounter"
--- OUTSIDE RECORDS SUMMARY | ~2019-10-11 | XMS | Encounter Summary ---
Demographics + + + | Address | [address] | | | [place] [address] | + + + | Home Phone [...] [place] | | | | | [address] | | + + + + + Care Team Providers + +------+ + | Care Service Line Bus Cleaner Name | Role | Phone | [...] | Services | ogy | Epigastric | [facility], | Tyrese Shelley MD | | | Required | | abdominal | [place], | [address], | | | | | pain GERD | LATHE SET UP PERSON [address] | [address] | | | | | (gastroesoph | [place], [place] | [place], | | | | | ageal reflux | [address] [place] | [place] [address] | | | | | disease) | [place], [place] | Phone: | | | | | Fatty liver | [address] | [phone] | | | | | DM | Phone: | Fax: | | | | | (diabetes | [phone] | [phone] | | | | | mellitus) | Fax: | | | | | | (HCC) | [phone] | | +--------+ + + + + + Reason for Visit + + + | Reason | Comments | + + + | Gastroesophageal | epigastric pain | | Reflux | | + + + Encounter Details +--------+---------+ + + + | Date | Type | Department | Care Team | Description | +--------+---------+ + + + | 03/06/ | Office | [facility] | [facility], | Epigastric abdominal | | 2012 | Visit | GASTROENTEROLOGY | FORTUNATO Thomas [address] | pain (Primary Dx); | | | | [address] | [place] | GERD | | | | [address] [place], [place] | [place], [place] | (gastroesophageal | | | | [address] | [address] | reflux disease); | | | | [phone] | | Fatty liver; DM | | [...] years ago by Dr. Saravanan Tsai, in [facility]. Colonoscopy was done 05/[address] Hamlin in [facility]. Allergies Allergen Reactions Demerol Duloxetine [...] | | | | | [place], [place] | | | | | | [id number] | | | | | | | [...]
--- OUTSIDE RECORDS SUMMARY | ~2019-10-11 | XMS | Encounter Summary ---
Demographics + + + | Address | [address] | | | [place] [address] | + + + | Home Phone [...] [place] | | | | | [address] | | + + + + + Care Team Providers + +------+ + | Care Shelving Supervisor Name | Role | Phone | [...] [place] | | | | | | [address] | | | | | | [phone] | | | +--------+ + + + [...] [place] | | | | | | [address] | | | | | | | | +--------+---------+ + + + documented as of this encounter Visit Diagnoses Not on filedocumented in this encounter"
--- OUTSIDE RECORDS SUMMARY | ~2019-10-11 | XMS | Encounter Summary ---
Demographics + + + | Address | [address] | | | [place] [address] | + + + | Home Phone [...] + + + | Author | [facility] | + + + | Organization | [facility] | + + + | Address | Unknown | + + + | Phone | Unavailable | + + + Support + + + + + | Name | Relationship | Address | Phone | + + + + + | Kelsy Bautista | ECON | [address] | | | | | [place] | | | | | [address] | | + + + + + Care Team Providers + +------+ + | Care Disk And Tape Machine Tender Name | Role | Phone [...] | | | | | | [place] [address] | | | | | | [phone] | | | | | | | [...] in | | | | | | [place] with a | | | | | [...] [facility] | | | | | [facility] | | | | | | Laboratory, [place], | | | | | | [place], delivered | | | | | | [...] by | | | | | | gmjeipeuUzq-Nah-O: | | | | | | Increased [...] istryMHC-1: | | | | | | [id number] stain | | | | | | [...] | + + + + + | [facility] | [address] | [place] [address] | | | PATHOLOGY | [place] | | | + + + + + documented in this encounter Visit Diagnoses Not on filedocumented in this encounter
--- OUTSIDE RECORDS SUMMARY | ~2019-10-11 | XMS | Encounter Summary ---
Demographics + + + | Address | [address] | | | [place] [address] | + + + | Home Phone [...] [place] | | | | | [address] | | + + + + + Care Team Providers + +------+ + | Care Administrative Volunteer Name | Role | Phone | + [...] | | | | | | | [address] | | | | | | | Phone: | | | | | | | [phone] | | | | | | | Fax: | | | | | | | [phone] | | +--------+ + + + + + Reason for Visit + + + | Reason | Comments | + + + | Follow-up | 4 Week PO | + + + Encounter Details +--------+---------+ + + + | Date | Type | Department | Care Team | Description | +--------+---------+ + + + | 07/25/ | Office | [facility] | Frandy Teresa, | Lumbar spondylosis | | 2013 | Visit | NEUROSURGERY [address] | DO [address] | (Primary Dx); S/P | | | | [address] | [address] [place], [place] | lumbar fusion | | | | [place], [place] | [address] | | | | | [address] | | | | | | [phone] | | | +--------+---------+ + + + [...] m the original. Frandy Teresa DO [address] [facility] [place], [place] [address] FAX: NEUROSURGERY SURGICAL FOLLOW-UP CHIEF COMPLAINT: Chief [...] Take 15 mg by mouth nightl y. [place]-3 Fatty Acids (FISH OIL CONCENTRATE) 1000 MG [...] + | MISCELLANEOUS LAB | | | [phone] | + +---------+ + + | MISCELANIOUS LAB | | | [phone] | + +---------+ + + documented in this encounter Visit Diagnoses + + | Diagnosis | + + | Lumbar spondylosis - Primary Lumbosacral spondylosis without myelopathy | + + | S/P lumbar fusion Arthrodesis status | + + documented in this encounter
--- OUTSIDE RECORDS SUMMARY | ~2019-10-11 | XMS | Encounter Summary ---
Demographics + + + | Address | [address] | | | [place] [address] | + + + | Home Phone [...] [place] | | | | | [address] | | + + + + + Care Team Providers + +------+ + | Care Revenue Accountant Name | Role | Phone | + +------+ + | Natalee Andersen NP | PCP | | + +------+ + Encounter Details +--------+ + + + + | Date | Type | Department | Care Team | Description | +--------+ + + + + | 06/25/ | Hospital | [facility] | Frandy Teresa, | Acquired | | 2014 | Encounter | MED CTR XRAY [address] | DO [address] | spondylolisthesis | | | | [place] | [address] [place], [place] | | | | | [place] [address] | [address] | | | | | [phone] | | | +--------+ + + + [...] + + + +---------+ + + | [place]-3 Fatty | Take 1,000 mg by | [...] [place] | | | | | | [address] | | | | | | | | +--------+---------+ + + + documented as of this encounter Visit Diagnoses + + | Diagnosis | + + | Acquired spondylolisthesis | + + documented in this encounter"
--- OUTSIDE RECORDS SUMMARY | ~2019-10-11 | XMS | Encounter Summary ---
Demographics + + + | Address | [address] | | | [place] [address] | + + + | Home Phone [...] [place] | | | | | [address] | | + + + + + Care Team Providers + +------+ + | Care Supervisor Stage Carpentry Name | Role | Phone | + [...] + | 07/15/ | Telephone | [facility] | [place] Alfaro PA | Other | | 2016 | | SLEEP DISORDER [address] | [address] | | | | | [address] [place] | [place] [facility], [place] | | | | | [place] [address] | [address] | | | | | [phone] | | | +--------+ + + + [...] [place] | | | | | | [address] | | | | | | | | +--------+---------+ + + + documented as of this encounter Visit Diagnoses Not on filedocumented in this encounter"
--- OUTSIDE RECORDS SUMMARY | ~2019-10-11 | XMS | Encounter Summary ---
Demographics + + + | Address | [address] | | | [place] [address] | + + + | Home Phone [...] [place] | | | | | [address] | | + + + + + Care Team Providers + +------+ + | Care Take Away Attendant Name | Role | Phone | [...] [place] | | | | | | [address] | | | | | | [phone] | | | +--------+ + + + [...] [place] | | | | | | [address] | | | | | | | | +--------+---------+ + + + documented as of this encounter Visit Diagnoses Not on filedocumented in this encounter"
--- OUTSIDE RECORDS SUMMARY | ~2019-10-11 | XMS | Encounter Summary ---
Demographics + + + | Address | [address] | | | [place] [address] | + + + | Home Phone [...] [place] | | | | | [address] | | + + + + + [...] + | 12/03/ | Refill | [facility] | Frandy Teresa, | Medication Refill | | 2014 | | NEUROSURGERY [address] | DO [address] | | | | | [address] | [address] [place], [place] | | | | | [place], [place] | [id number] | | | | | [address] | | | | | | [phone] | | | +--------+--------+ + + + [...] | | | | | [place] | | | | | | [address] | | | | | | | | +--------+---------+ + + + documented as of this encounter Visit Diagnoses Not on filedocumented in this encounter"
--- OUTSIDE RECORDS SUMMARY | ~2019-10-11 | XMS | Encounter Summary ---
Demographics + + + | Address | [address] | | | [place] [address] | + + + | Home Phone [...] [place], [place] | | | | | [address] | | + + + + + Care Team Providers + +------+ + | Care Desk Manager Name | Role | Phone | + +------+ + PCP | Unavailable | + +------+ + Encounter Details +--------+ + + + + | Date | Type | Department | Care Team | Description | +--------+ + + + + | 09/10/ | Hospital | [facility] | | | | 1992 | Encounter | MED CTR LABORATORY | | | | | | [address] | | | | | | [place] | | | | | | [address] | | | | | | [phone] | | | +--------+ + + + [...] | 04/10/ | Office | Cardiology | Desriee Peterson DO | | | 2019 | Visit | | [address] | | | | | | [place] | | | | | | [address] | | | | | | | | +--------+---------+ + + + documented as of this encounter Visit Diagnoses Not on filedocumented in this encounter"
--- OUTSIDE RECORDS SUMMARY | ~2019-10-11 | XMS | Encounter Summary ---
Demographics + + + | Address | [address] | | | [place] [address] | + + + | Home Phone [...] [place] | | | | | [address] | | + + + + + Care Team Providers + +------+ + | Care Fire Support Specialist Name | Role | Phone [...] + | 02/21/ | Refill | [facility] | Deon Gonzales | Medication Refill | | 2012 | | SLEEP DISORDER [address] | MD [place] [address] | | | | | [address] [place] | [address] [place] | | | | | [place] [address] | [place] [address] | | | | | [phone] | [phone] | | | | | | | [...] [place] | | | | | | [address] | | | | | | | | +--------+---------+ + + + documented as of this encounter Visit Diagnoses + + | Diagnosis | + + | Obstructive sleep apnea (adult) (pediatric) - Primary | + + documented in this encounter"
--- OUTSIDE RECORDS SUMMARY | ~2019-10-11 | XMS | Encounter Summary ---
Demographics + + + | Address | [address] | | | [place] [address] | + + + | Home Phone [...] [place] | | | | | [address] | | + + + + + Care Team Providers + +------+ + | Care Service Writer Advisor Name | Role | Phone | [...] + + | 06/12/ | Office | [facility] | Chris Nicole, | Spondylisthesis | | 2013 | Visit | NEUROSURGERY [address] | PA-C [address] | (Primary Dx); | | | | [address] | [place], [place] | Radiculopathy of | | | | [place], [place] | [address] | leg; Lumbar spine | | | | [address] | | instability; Lumbar | | | | [phone] | | spondylosis; | | | | [...] rom the original. ZANE Castillo [address] [place] [address] FAX: NEUROSURGERY HISTORY AND PHYSICAL [...] Take 15 mg by mouth nightl y. [place]-3 Fatty Acids (FISH OIL CONCENTRATE) 1000 MG [...] has no apparent deficits with short or chcf memory. CRANIAL NERVES: II: Acuity is intact. [...] Intrinsics 5 5 Ulnar Intrinsics 5 5 Non Destructive Testing Inspector Strength 5 5 Hip Flexion 5 4* [...] [place] | | | | | | [address] | | | | | | | [...]
--- OUTSIDE RECORDS SUMMARY | ~2019-10-11 | XMS | Encounter Summary ---
Demographics + + + | Address | [address] | | | [place] [address] | + + + | Home Phone [...] [place] | | | | | [address] | | + + + + + Care Team Providers + +------+ + | Care Clinical Services Consultant Name | Role | Phone | [...] + | 03/07/ | Telephone | [facility] | Katharine Cardona PA-C | Results | | 2014 | | [facility] | [address] | | | | | [address] | [place] [address] | | | | | [place], [place] | [phone] | | | | | [address] | | | | | | [phone] | | | +--------+ + + + [...] [place] | | | | | | [address] | | | | | | | | +--------+---------+ + + + documented as of this encounter Visit Diagnoses Not on filedocumented in this encounter"
--- OUTSIDE RECORDS SUMMARY | ~2019-10-11 | XMS | Encounter Summary ---
Demographics + + + | Address | [address] | | | [place] [address] | + + + | Home Phone [...] [place], [place] | | | | | [address] | | + + + + + Care Team Providers + +------+ + | Care Chemical Unit Operator Name | Role | Phone | + +------+ + PCP | Unavailable | + +------+ + Encounter Details +--------+ + + + + | Date | Type | Department | Care Team | Description | +--------+ + + + + | 02/24/ | Hospital | [facility] | | | | 1997 - | Encounter | MED CTR GENERIC PSY | | | | | | CONV DEPT [address] | | | | 02/26/ | | [place], | | | | 1997 | | [place] [address] | | | | | | [phone] | | | +--------+ + + + [...] [place] | | | | | | [address] | | | | | | | | +--------+---------+ + + + documented as of this encounter Visit Diagnoses Not on filedocumented in this encounter"
--- OUTSIDE RECORDS SUMMARY | ~2019-10-11 | XMS | Encounter Summary ---
Demographics + + + | Address | [address] | | | [place] [address] | + + + | Home Phone [...] [place], [place] | | | | | [address] | | + + + + + Care Team Providers + +------+ + | Care Enterprise Systems Architect Name | Role | Phone | + +------+ + PCP | Unavailable | + +------+ + Encounter Details +--------+ + + + + | Date | Type | Department | Care Team | Description | +--------+ + + + + | 04/16/ | Hospital | [facility] | | | | 1997 | Encounter | MED CTR XRAY [address] | | | | | | [place] | | | | | | [place] [address] | | | | | | [phone] | | | +--------+ + + + [...] | | | | | [place] | | | | | | [address] | | | | | | | | +--------+---------+ + + + documented as of this encounter Visit Diagnoses Not on filedocumented in this encounter"
--- OUTSIDE RECORDS SUMMARY | ~2019-10-11 | XMS | Encounter Summary ---
Demographics + + + | Address | [address] | | | [place] [address] | + + + | Home Phone [...] [place] | | | | | [address] | | + + + + + Care Team Providers + +------+ + | Care Subwarehouse Supervisor Name | Role | Phone | [...] | 07/29/ | Telephone | [facility] | Frandy Teresa, | Other (multiple | | 2013 | | NEUROSURGERY [address] | DO [address] | questions) | | | | [address] | [address] [place], [place] | | | | | [place], [place] | [address] | | | | | [address] | | | | | | [phone] | | | +--------+ + + + [...] | | | | [place] | | | | | | [address] | | | | | | | | +--------+---------+ + + + documented as of this encounter Visit Diagnoses Not on filedocumented in this encounter"
--- OUTSIDE RECORDS SUMMARY | ~2019-10-11 | XMS | Encounter Summary ---
Demographics + + + | Address | [address] | | | [place] [address] | + + + | Home Phone [...] [place] | | | | | [address] | | + + + + + Care Team Providers + +------+ + | Care Manager Academic Name | Role | Phone | + +------+ + | Adriano Patrick MD | PCP | | + +------+ + Encounter Details +--------+ + + + + | Date | Type | Department | Care Team | Description | +--------+ + + + + | 06/12/ | Hospital | [facility] | Frandy Teresa, | No Show | | 2014 | Encounter | MED CTR | DO [address] | | | | | ELECTRODIAGNOSTICS | [address] [place], [place] | | | | | [address] [place] | [address] | | | | | [place] [address] | | | | | | [phone] | | | +--------+ + + + [...] [place] | | | | | | [address] | | | | | | | | +--------+---------+ + + + documented as of this encounter Visit Diagnoses Not on filedocumented in this encounter"
--- OUTSIDE RECORDS SUMMARY | ~2019-10-11 | XMS | Encounter Summary ---
Demographics + + + | Address | [address] | | | [place] [address] | + + + | Home Phone [...] [place], [place] | | | | | [address] | | + + + + + Care Team Providers + +------+ + | Care Closed Circuit Screen Watcher Name | Role | Phone | + +------+ + PCP | Unavailable | + +------+ + Encounter Details +--------+ + + + + | Date | Type | Department | Care Team | Description | +--------+ + + + + | 06/19/ | Hospital | [facility] | | | | 1991 - | Encounter | MED CTR GENERIC PSY | | | | | | CONV DEPT [address] | | | | 06/24/ | | [address] [address], | | | | 1991 | | [place] [address] | | | | | | [phone] | | | +--------+ + + + [...] [place] | | | | | | [address] | | | | | | | | +--------+---------+ + + + documented as of this encounter Visit Diagnoses Not on filedocumented in this encounter"
--- OUTSIDE RECORDS SUMMARY | ~2019-10-11 | XMS | Encounter Summary ---
Demographics + + + | Address | [address] | | | [place] [address] | + + + | Home Phone [...] [place], [place] | | | | | [address] | | + + + + + Care Team Providers + +------+ + | Care Pre Owned Sales Manager Name | Role | Phone | + +------+ + PCP | Unavailable | + +------+ + Encounter Details +--------+ + + + + | Date | Type | Department | Care Team | Description | +--------+ + + + + | 03/26/ | Hospital | [facility] | | | | 2001 | Encounter | MED CTR LABORATORY | | | | | | [address] | | | | | | [place] | | | | | | [address] | | | | | | [phone] | | | +--------+ + + + [...] | | | | | [place] | | | | | | [address] | | | | | | | | +--------+---------+ + + + documented as of this encounter Visit Diagnoses Not on filedocumented in this encounter"
--- OUTSIDE RECORDS SUMMARY | ~2019-10-11 | XMS | Encounter Summary ---
Demographics + + + | Address | [address] | | | [place] [address] | + + + | Home Phone [...] [place] | | | | | [address] | | + + + + + Care Team Providers + +------+ + | Care Hand Zipper Trimmer Name | Role | Phone | [...] + + | 08/20/ | Documentati | [facility] | Katharine Moncada, | Other (urgent | | 2019 | on | CARDIOLOGY [place] | Technologist | report) | | | | [address] | | | | | | [place] | | | | | | [address] | | | | | | [phone] | | | +--------+ + + + [...] [place] | | | | | | [address] | | | | | | | | +--------+---------+ + + + documented as of this encounter Visit Diagnoses Not on filedocumented in this encounter"
--- OUTSIDE RECORDS SUMMARY | ~2019-10-11 | XMS | Encounter Summary ---
Demographics + + + | Address | [address] | | | [place] [address] | + + + | Home Phone [...] [place], [place] | | | | | [address] | | + + + + + Care Team Providers + +------+ + | Care Narcotics Detective Name | Role | Phone | + +------+ + PCP | Unavailable | + +------+ + Encounter Details +--------+ + + + + | Date | Type | Department | Care Team | Description | +--------+ + + + + | 01/16/ | Hospital | [facility] | | | | 2002 | Encounter | MED CTR XRAY [address] | | | | | | [place] | | | | | | [place] [address] | | | | | | [phone] | | | +--------+ + + + [...] | | | | | [place] | | | | | | [address] | | | | | | | | +--------+---------+ + + + documented as of this encounter Visit Diagnoses Not on filedocumented in this encounter"
--- OUTSIDE RECORDS SUMMARY | ~2019-10-11 | XMS | Encounter Summary ---
Demographics + + + | Address | [address] | | | [place] [address] | + + + | Home Phone [...] [place] | | | | | [address] | | + + + + + Care Team Providers + +------+ + | Care Orthotic/Prosthetic Practitioner Name | Role | Phone | + [...] | 07/15/ | Telephone | [facility] | Russell Alfaro PA | Other | | 2016 | | SLEEP DISORDER [address] | [address] | | | | | [address] [place] | [place] [facility] | | | | | [place] [address] | [address] | | | | | [phone] | | | +--------+ + + + [...] [place] | | | | | | [address] | | | | | | | | +--------+---------+ + + + documented as of this encounter Visit Diagnoses Not on filedocumented in this encounter"
--- OUTSIDE RECORDS SUMMARY | ~2019-10-11 | XMS | Encounter Summary ---
Demographics + + + | Address | [address] | | | [place] [address] | + + + | Home Phone [...] [place] | | | | | [address] | | + + + + + Care Team Providers + +------+ + | Care Head Grower Name | Role | Phone | [...] [place] | | | | | | [address] | | | | | | [phone] | | | +--------+ + + + [...] [place] | | | | | | [address] | | | | | | | | +--------+---------+ + + + documented as of this encounter Visit Diagnoses Not on filedocumented in this encounter"
--- OUTSIDE RECORDS SUMMARY | ~2019-10-11 | XMS | Encounter Summary ---
Demographics + + + | Address | [address] | | | [place] [address] | + + + | Home Phone [...] [place] | | | | | [address] | | + + + + + Care Team Providers + +------+ + | Care Machine Repairer Maintenance Name | Role | Phone | [...] [address] | [address] [place], [place] | Anxiety; Anemia; | | | | [place] | [address] | Irregular heartbeat; | | | | [address] | | Depression; | | | | [phone] | | Migraine; | | | | [...] [place] | | | | | | [address] | | | | | | | [...]
--- OUTSIDE RECORDS SUMMARY | ~2019-10-11 | XMS | Encounter Summary ---
Demographics + + + | Address | [address] | | | [place] [address] | + + + | Home Phone [...] [place], [place] | | | | | [address] | | + + + + + Care Team Providers + +------+ + | Care [employer] Name | Role | Phone | + +------+ + PCP | Unavailable | + +------+ + Encounter Details +--------+ + + + + | Date | Type | Department | Care Team | Description | +--------+ + + + + | 02/02/ | Hospital | [facility] | Serafin Bautista | | | 2012 | Encounter | MED CTR XRAY [address] | T, MD [address] | | | | | [place] | ST [place], [place] | | | | | [place] [address] | [address] | | | | | [phone] | | | +--------+ + + + [...] [place] | | | | | | [address] | | | | | | | [...] At | + + + | [facility] | [facility] | | [address] | [facility] | | PROCEDURE: EPIDURAL STEROID | [...] Transcribed Date/Time: | | | 02/03/2012 18:45 Stewardesses Teacher: <Electronically Signed | | | by Serafin Bautista MD> 02/14/12 0916 | | + + + + + | Procedure Note | + + | Juan, Rad Conversion - 11/30/2013 5:06 [facility] | | Diagnostic Imaging Department | | [address] | | | | | | | [...] | Transcribed Date/Time: 02/03/2012 18:45 | | Stewardesses Teacher: LaMAHIN | | <Electronically Signed by [...]
--- OUTSIDE RECORDS SUMMARY | ~2019-10-11 | XMS | Encounter Summary ---
Demographics + + + | Address | [address] | | | [place] [address] | + + + | Home Phone [...] [place], [place] | | | | | [address] | | + + + + + Care Team Providers + +------+ + | Care Magistrate Name | Role | Phone | + +------+ + PCP | Unavailable | + +------+ + Encounter Details +--------+ + + + + | Date | Type | Department | Care Team | Description | +--------+ + + + + | 06/07/ | Hospital | [facility] | | | | 1991 - | Encounter | MED CTR GENERIC OP | | | | | | CONV DEPT [address] | | | | 10/07/ | | [place], | | | | 1991 | | [place] [address] | | | | | | [phone] | | | +--------+ + + + [...] [place] | | | | | | [address] | | | | | | | | +--------+---------+ + + + documented as of this encounter Visit Diagnoses Not on filedocumented in this encounter"
--- OUTSIDE RECORDS SUMMARY | ~2019-10-11 | XMS | Encounter Summary ---
Demographics + + + | Address | [address] | | | [place] [address] | + + + | Home Phone [...] [place] | | | | | [address] | | + + + + + Care Team Providers + +------+ + | Care Parent Aide Name | Role | Phone | [...] + + | 06/27/ | Office | [facility] | Yecenia Richardson, | Hypertension, | | 2019 | Visit | CARDIOLOGY [place] | MD Nitin RODRIGUES | unspecified type | | | | [address] | [place], [place] | (Primary Dx); | | | | KEV SCHAFER [facility] | [address] | Bradycardia | | | | [place] | | | | | | [address] | | | | | | [phone] | | | +--------+---------+ + + + [...] urgent basis. Had an appointment today in [facility]. She has been feeling dizzy as [...] Take by mouth. Blood Glucose Monitoring Suppl (Pintics VERIO FLEX SYSTEM) w/Device KIT by Does [...] mg by mouth Daily. Cholecalciferol (VITAMIN D-3) 71146 units CAPS Take 50,000 Units by mouth [...] tablet Take 10 mg by mouth nightly. [place]-3 Fatty Acids (FISH OIL CONCENTRATE) 1000 MG [...] | | | | | [place], [place] | | | | | | [address] | | | | | | | [...]
--- OUTSIDE RECORDS SUMMARY | ~2019-10-11 | XMS | Encounter Summary ---
Demographics + + + | Address | [address] | | | [place] [address] | + + + | Home Phone [...] [place] | | | | | [address] | | + + + + + Care Team Providers + +------+ + | Care Tamper Operator Name | Role | Phone | [...] + + | 07/08/ | Telephone | [facility] | Frandy Teresa, | Other (post op call | | 2013 | | NEUROSURGERY [address] | DO [address] | ) | | | | [address] | [address] [place], [place] | | | | | [place], [place] | [address] | | | | | [address] | | | | | | [phone] | | | +--------+ + + + [...] | | | | | [place] | | | | | | [address] | | | | | | | | +--------+---------+ + + + documented as of this encounter Visit Diagnoses Not on filedocumented in this encounter"
--- OUTSIDE RECORDS SUMMARY | ~2019-10-11 | XMS | Encounter Summary ---
Demographics + + + | Address | [address] | | | [place] [address] | + + + | Home Phone [...] [place] | | | | | [address] | | + + + + + Care Team Providers + +------+ + | Care Flatware Maker Name | Role | Phone | [...] Closed | | Radiology | Diagnoses | [place], | | | | | | Thoracic or | Natalee L, | | | | | | lumbosacral | [address] | | | | | | neuritis or | [address] [place] | | | | | | | [address] | | | | | | radiculitis, | [place], | | | | | | unspecified | [place] [address] | | | | | | | Phone: | | | | | | Degeneration | [phone] | | | | | | of lumbar | Fax: | | | | | | or | [phone] | | | | | | lumbosacral [...] + + | 03/11/ | Hospital | [facility] | Natalee Andersen | Thoracic or | | 2013 | Encounter | MED CTR MRI [address] | L, [address] | lumbosacral neuritis | | | | [place], | [address] [place] [address] | or radiculitis, | | | | [place] [address] | [place] [address] | unspecified; | | | | [phone] | [phone] | Degeneration of | | | | [...] + + + +---------+ + + | [place]-3 Fatty | Take 1,000 mg by | [...] | | | | | | [facility] | | | | | | [address] | | | | | | | [...] + | MISCELLANEOUS LAB | | | [phone] | + +---------+ + + | MISCELANIOUS LAB | | | [phone] | + +---------+ + + documented in this encounter Visit Diagnoses + + | Diagnosis | + + | Thoracic or lumbosacral neuritis or radiculitis, unspecified | + + | Degeneration of lumbar or lumbosacral intervertebral disc | + + documented in this encounter"
--- OUTSIDE RECORDS SUMMARY | ~2019-10-11 | XMS | Encounter Summary ---
Demographics + + + | Address | [address] | | | [place] [address] | + + + | Home Phone [...] [place] | | | | | [address] | | + + + + + Care Team Providers + +------+ + | Care Squad Boss Name | Role | Phone | [...] + + | 03/26/ | Telephone | [facility] | Thierry Fry | Medication Prior | | 2015 | | MEDICINE [facility] [place] | MD Lisa [address] | Authorization | | | | [facility] | [facility] | (Dexilant 60Mg) | | | | [place] [address] | [address] | | | | | [phone] | | | +--------+ + + + [...] [place] | | | | | | [address] | | | | | | | | +--------+---------+ + + + documented as of this encounter Visit Diagnoses Not on filedocumented in this encounter"
--- OUTSIDE RECORDS SUMMARY | ~2019-10-11 | XMS | Encounter Summary ---
Demographics + + + | Address | [address] | | | [place] [address] | + + + | Home Phone [...] [place] | | | | | [address] | | + + + + + Care Team Providers + +------+ + | Care Kitman Name | Role | Phone | + [...] + + | 04/05/ | Telephone | [facility] [place] | [facility], | Results | | 2012 | | GASTROENTEROLOGY | [place] | | | | | [address] [place] | [place], [address] | | | | | [address] [place], [place] | [place], [place] | | | | | [address] | [address] | | | | | [phone] | | | +--------+ + + + [...] [place] | | | | | | [address] | | | | | | | | +--------+---------+ + + + documented as of this encounter Visit Diagnoses Not on filedocumented in this encounter"
--- OUTSIDE RECORDS SUMMARY | ~2019-10-11 | XMS | Encounter Summary ---
Demographics + + + | Address | [address] | | | [place] [address] | + + + | Home Phone [...] [place], [place] | | | | | [address] | | + + + + + Care Team Providers + +------+ + | Care Cinder Worker Name | Role | Phone | [...] | SR | | | | | [phone] | | | +--------+ + + + [...] [place] | | | | | | [address] | | | | | | | | +--------+---------+ + + + documented as of this encounter Visit Diagnoses Not on filedocumented in this encounter
--- OUTSIDE RECORDS SUMMARY | ~2019-10-11 | XMS | Encounter Summary ---
Demographics + + + | Address | [address] | | | [place] [address] | + + + | Home Phone [...] [place] | | | | | [address] | | + + + + + Care Team Providers + +------+ + | Care Order Fulfillment Specialist Name | Role | Phone | [...] + + | 04/05/ | Telephone | [facility] [place] | [facility], | Results | | 2012 | | GASTROENTEROLOGY | [place] | | | | | [address] [place] | [place], [address] | | | | | [address] [place], [place] | [place], [place] | | | | | [address] | [address] | | | | | [phone] | | | +--------+ + + + [...] | | | | | | [place] | | | | | | [address] | | | | | | | | +--------+---------+ + + + documented as of this encounter Visit Diagnoses Not on filedocumented in this encounter"
--- OUTSIDE RECORDS SUMMARY | ~2019-10-11 | XMS | Encounter Summary ---
Demographics + + + | Address | [address] | | | [place] [address] | + + + | Home Phone [...] [place], [place] | | | | | [address] | | + + + + + Care Team Providers + +------+ + | Care Certified Veterinary Technician Name | Role | Phone | + +------+ + PCP | Unavailable | + +------+ + Encounter Details +--------+ + + + + | Date | Type | Department | Care Team | Description | +--------+ + + + + | 02/02/ | Hospital | [facility] | | | | 1997 | Encounter | MED CTR EMERGENCY | | | | | | [address] | | | | | | [place] | | | | | | [address] | | | | | | [phone] | | | +--------+ + + + [...] | | | | | [place] | | | | | | [address] | | | | | | | | +--------+---------+ + + + documented as of this encounter Visit Diagnoses Not on filedocumented in this encounter"
--- OUTSIDE RECORDS SUMMARY | ~2019-10-11 | XMS | Encounter Summary ---
Demographics + + + | Address | [address] | | | [place] [address] | + + + | Home Phone [...] [place] | | | | | [address] | | + + + + + Care Team Providers + +------+ + | Care Wound Treatment Rn Name | Role | Phone | [...] + | 08/09/ | Clinical | [facility] | Desiree Peterson DO | Syncope, unspecified | | 2019 | Support | CARDIOLOGY [place] | [address] | syncope type | | | | [address] | [place], [place] | | | | | [place] [address] | [address] | | | | | [place] | | | | | | [address] | Dora De La Torre | | | | | [phone] | CAROLINE [address] | | | | | | [address] | | | | | | [place] [address] | | | | | | [phone] | | | | | | | [...] [place] | | | | | | [address] | | | | | | | | +--------+---------+ + + + documented as of this encounter Visit Diagnoses + + | Diagnosis | + + | Syncope, unspecified syncope type | + + documented in this encounter"
--- OUTSIDE RECORDS SUMMARY | ~2019-10-11 | XMS | Encounter Summary ---
Demographics + + + | Address | [address] | | | [place] [address] | + + + | Home Phone [...] [place] | | | | | [address] | | + + + + + Care Team Providers + +------+ + | Care Title Vehicle Service Attendant Name | Role | Phone | [...] | SLEEP DISORDER [address] | [address] | | | | | [address] [place] | [place], [place] | | | | | [place] [address] | [address] | | | | | [phone] | | | +--------+ + + + [...] | | | | | [place] | | | | | | [address] | | | | | | | | +--------+---------+ + + + documented as of this encounter Visit Diagnoses Not on filedocumented in this encounter"
--- OUTSIDE RECORDS SUMMARY | ~2019-10-11 | XMS | Encounter Summary ---
Demographics + + + | Address | [address] | | | [place] [address] | + + + | Home Phone [...] [place] | | | | | [address] | | + + + + + Care Team Providers + +------+ + | Care Math And Sciences Department Chair Name | Role | [...] | | spondylolist | | [address] | | | | | hesis | | [place], | | | | | Spinal | | [place] [address] | | | | | stenosis, | | Phone: | | | | | lumbar | | [phone] | | | | | region, | | Fax: | | | | | without | | [phone] | | | | | neurogenic | [...] | | | | [address] | [address] [place] | | | | | [place] | [phone] | | | | | [address] | | | | | | [phone] | | | +--------+ + + + [...] Easy mask AW. DL times one with [facility] 3 easy view | | | 2 | Intubation | | | | 2 | | | | | 6 | | | +----+---+ + + | | 1 | AN Bite | | | | 2 | Block | | | | 2 | | | | | 7 | | | +----+---+ + + | | 1 | [place] | | | | 2 | 43-degrees | | | | 3 | | | | | 1 | | | +----+---+ + + | | 1 | [place] off | | | | 4 | [...] | | | | | [place], [place] | | | | | | [phone] | | | | | | | [...]
--- OUTSIDE RECORDS SUMMARY | ~2019-10-11 | XMS | Encounter Summary ---
Demographics + + + | Address | [address] | | | [place] [address] | + + + | Home Phone [...] | + + + + + | Araceil Sibley | ECON | [place] | | | | | [address] | | + + + + + Care Team Providers + +------+ + | Care Oscillograph Technician Name | Role | Phone | [...] + + | 08/16/ | Documentati | [facility] | Katharine Moncada, | Other (urgent | | 2019 | on | CARDIOLOGY [place] | Technologist | report) | | | | [address] | | | | | | [place] | | | | | | [address] | | | | | | [phone] | | | +--------+ + + + [...] [place] | | | | | | [address] | | | | | | | | +--------+---------+ + + + documented as of this encounter Visit Diagnoses Not on filedocumented in this encounter"
--- OUTSIDE RECORDS SUMMARY | ~2019-10-11 | XMS | Encounter Summary ---
Demographics + + + | Address | [address] | | | [place] [address] | + + + | Home Phone [...] [place] | | | | | [address] | | + + + + + Care Team Providers + +------+ + | Care Ribbon Inker Name | Role | Phone | + [...] + + | 02/01/ | Telephone | [facility] | Frandy Teresa, | Imaging Only | | 2019 | | NEUROSURGERY [address] | DO [address] | | | | | [address] | [address] [place], [place] | | | | | [place], [place] | [address] | | | | | [address] | | | | | | [phone] | | | +--------+ + + + [...] [place] | | | | | | [address] | | | | | | | | +--------+---------+ + + + documented as of this encounter Visit Diagnoses Not on filedocumented in this encounter"
--- OUTSIDE RECORDS SUMMARY | ~2019-10-11 | XMS | Encounter Summary ---
Demographics + + + | Address | [address] | | | [place] [address] | + + + | Home Phone [...] [place] | | | | | [address] | | + + + + + Care Team Providers + +------+ + | Care Construction Trades Teacher Name | Role | Phone | [...] [place] | | | | | | [address] | | | | | | [phone] | | | +--------+ + + + [...] [address] | | | | | | [place] | | | | | | [address] | | | | | | | | +--------+---------+ + + + documented as of this encounter Visit Diagnoses Not on filedocumented in this encounter"
--- OUTSIDE RECORDS SUMMARY | ~2019-10-11 | XMS | Encounter Summary ---
Demographics + + + | Address | [address] | | | [place] [address] | + + + | Home Phone [...] [place] | | | | | [address] | | + + + + + Care Team Providers + +------+ + | Care Assistant Hvac Mechanic Name | Role | Phone | [...] + | 02/27/ | Telephone | [facility] | Katharine Cardona PA-C | Appointment (New | | 2014 | | MEDICINE [address] | [address] | Patient) | | | | [address] [place] | [place] [address] | | | | | [place] [address] | [phone] | | | | | [phone] | | | +--------+ + + + [...] [place] | | | | | | [address] | | | | | | | | +--------+---------+ + + + documented as of this encounter Visit Diagnoses Not on filedocumented in this encounter"
--- OUTSIDE RECORDS SUMMARY | ~2019-10-11 | XMS | Encounter Summary ---
Demographics + + + | Address | [address] | | | [place] [address] | + + + | Home Phone [...] [place] | | | | | [address] | | + + + + + Care Team Providers + +------+ + | Care Communications Technician Name | Role | Phone | [...] + | 09/26/ | Refill | [facility] | Frandy Teresa, | Medication Refill | | 2013 | | NE[address]OSURG[address] | DO [address] | | | | | [address] | [address] [place], [place] | | | | | [place], [place] | [phone] | | | | | [address] | | | | | | [phone] | | | +--------+--------+ + + + [...] | | | | | [place] | | | | | | [address] | | | | | | | | +--------+---------+ + + + documented as of this encounter Visit Diagnoses Not on filedocumented in this encounter"
--- OUTSIDE RECORDS SUMMARY | ~2019-10-11 | XMS | Encounter Summary ---
Demographics + + + | Address | [address] | | | [place] [address] | + + + | Home Phone [...] [place], [place] | | | | | [address] | | + + + + + Care Team Providers + +------+ + | Care Client Renewal Specialist Name | Role | Phone | + +------+ + PCP | Unavailable | + +------+ + Encounter Details +--------+ + + + + | Date | Type | Department | Care Team | Description | +--------+ + + + + | 01/25/ | Hospital | [facility] | | | | 2002 | Encounter | MED CTR XRAY [address] | | | | | | [address] | | | | | | [place] [address] | | | | | | [phone] | | | +--------+ + + + [...] | | | | | [place] | | | | | | [address] | | | | | | | | +--------+---------+ + + + documented as of this encounter Visit Diagnoses Not on filedocumented in this encounter"
--- OUTSIDE RECORDS SUMMARY | ~2019-10-11 | XMS | Encounter Summary ---
Demographics + + + | Address | [address] | | | [place] [address] | + + + | Home Phone [...] [place] | | | | | [address] | | + + + + + Care Team Providers + +------+ + | Care Director Business Development Name | Role | Phone [...] [address] | [address] [place], [place] | (Primary Dx) | | | | [place], [place] | [address] | | | | | [address] | | | | | | [phone] | | | +--------+ + + + [...] [place] | | | | | | [address] | | | | | | | [...] + | MISCELLANEOUS LAB | | | [phone] | + +---------+ + + | MISCELANIOUS LAB | | | [phone] | + +---------+ + + documented in this encounter Visit Diagnoses + + | Diagnosis | + + | Status post lumbar spinal fusion - Primary Arthrodesis status | + + documented in this encounter"
--- OUTSIDE RECORDS SUMMARY | ~2019-10-11 | XMS | Encounter Summary ---
Demographics + + + | Address | [address] | | | [place] [address] | + + + | Home Phone [...] [place] | | | | | [address] | | + + + + + Care Team Providers + +------+ + | Care Watch Manufacturing Supervisor Name | Role | Phone | [...] | Frandy Simons DO | [address] | | | | | of skin | [address] | [place], | | | | | sensation | [address] | [place] | | | | | Arthrodesis | [place], [place] | [address] | | | | | status Left | [address] | Phone: | | | | | leg | Phone: | [phone] | | | | | weakness | [phone] | Fax: | | | | | Procedures | Fax: | [phone] | | | | | MRI Lumbar | [phone] | | | | | | Spine [...] | Frandy Simons DO | [address] | | | | | of skin | [address] | [place], | | | | | sensation | [address] | [place] | | | | | Arthrodesis | [place] | [address] | | | | | status Left | [address] | Phone: | | | | | leg | Phone: | [phone] | | | | | weakness | [phone] | Fax: | | | | | Procedures | Fax: | [phone] | | | | | MRI Lumbar | [phone] | | | | | | Spine wo | | | | | | | Contrast | | | +--------+--------+ + + + + Encounter Details +--------+ + + + + | Date | Type | Department | Care Team | Description | +--------+ + + + + | 08/19/ | Hospital | [facility] | Frandy Teresa, | Status post lumbar | | 2013 | Encounter | MED CTR MRI [address] | DO [address] | spinal fusion; Left | | | | [address] [place], | [address] [place] | leg numbness; Left | | | | [place] [address] | [address] | leg weakness | | | | [phone] | | | +--------+ + + + [...] + + + +---------+ + + | [place]-3 Fatty | Take 1,000 mg by | [...] [place] | | | | | | [address] | | | | | | | [...] the round structure with high T1 and G1uixkks in the right L3 vertebral | | [...] + | MISCELLANEOUS LAB | | | [phone] | + +---------+ + + | MISCELANIOUS LAB | | | [phone] | + +---------+ + + documented in [...]
--- OUTSIDE RECORDS SUMMARY | ~2019-10-11 | XMS | Encounter Summary ---
Demographics + + + | Address | [address] | | | [place] [address] | + + + | Home Phone [...] [place] | | | | | [address] | | + + + + + Care Team Providers + +------+ + | Care Sewer Bricklayer Name | Role | Phone | + +------+ + | Natalee Andersen NP | PCP | | + +------+ + Encounter Details +--------+ + + + + | Date | Type | Department | Care Team | Description | +--------+ + + + + | 07/06/ | Hospital | [facility] | Latricia Feliciano | | | 2014 | Encounter | MED CTR ACUTE | D, PT [address] | | | | | PHYSICAL THERAPY | [place] | | | | | [address] | [address] | | | | | [place] [address] | | | | | | [phone] | | | +--------+ + + + [...] + + +---------+ + + | [place]-3 Fatty | Take 1,000 mg by | [...] | | | | | [place] | | | | | | [address] | | | | | | | | +--------+---------+ + + + documented as of this encounter Visit Diagnoses Not on filedocumented in this encounter"
--- OUTSIDE RECORDS SUMMARY | ~2019-10-11 | XMS | Encounter Summary ---
Demographics + + + | Address | [address] | | | [place] [address] | + + + | Home Phone [...] [place], [place] | | | | | [address] | | + + + + + Care Team Providers + +------+ + | Care Outpatient Dietitian Name | Role | Phone | + +------+ + PCP | Unavailable | + +------+ + Encounter Details +--------+ + + + + | Date | Type | Department | Care Team | Description | +--------+ + + + + | 06/17/ | Hospital | [facility] | | | | 1991 - | Encounter | MED CTR GENERIC PSY | | | | | | CONV DEPT [address] | | | | 06/18/ | | [place], | | | | 1991 | | [place] [address] | | | | | | [phone] | | | +--------+ + + + [...] [place] | | | | | | [address] | | | | | | | | +--------+---------+ + + + documented as of this encounter Visit Diagnoses Not on filedocumented in this encounter"
--- OUTSIDE RECORDS SUMMARY | ~2019-10-11 | XMS | Encounter Summary ---
Demographics + + + | Address | [address] | | | [place] [address] | + + + | Home Phone [...] [place] | | | | | [address] | | + + + + + Care Team Providers + +------+ + | Care Vision Impaired Teacher Name | Role | Phone | [...] + + | 08/15/ | Documentati | [facility] | Katharine Moncada, | Other (urgent | | 2019 | on | CARDIOLOGY [place] | Technologist | report) | | | | [address] | | | | | | [place] | | | | | | [address] | | | | | | [phone] | | | +--------+ + + + [...] [place] | | | | | | [address] | | | | | | | | +--------+---------+ + + + documented as of this encounter Visit Diagnoses Not on filedocumented in this encounter"
--- OUTSIDE RECORDS SUMMARY | ~2019-10-11 | XMS | Encounter Summary ---
Demographics + + + | Address | [address] | | | [place] [address] | + + + | Home Phone [...] [place] | | | | | [address] | | + + + + + Care Team Providers + +------+ + | Care Hoof And Shoe Inspector Name | Role | Phone [...] 03/06/ | Office | [facility] | Deon Gonzales | ROGERS (obstructive | | 2012 | Visit | SLEEP DISORDER [address] | MD [address] | sleep apnea) | | | | [address] [place] | [address] [place] | (Primary Dx); | | | | [place] [address] | [place] [address] | Sleepiness | | | | [phone] | [phone] | | | | | | | [...] differen t from the original. 03/06/13 [address] Sleepiness Scale Sitting and reading 3 Watching [...] by mouth Daily., Disp: , Rfl: ; [place]-3 Fatty Acids (FISH OIL CONCENTRATE) [...] | | | | | [place] | | | | | | [phone] | | | | | | | | +--------+---------+ + + + documented as of this encounter Visit Diagnoses + + | Diagnosis | + + | ROGERS (obstructive sleep apnea) - Primary Obstructive sleep apnea (adult) (pediatric) | + + | Sleepiness Other alteration of consciousness | + + documented in this encounter"
--- OUTSIDE RECORDS SUMMARY | ~2019-10-11 | XMS | Encounter Summary ---
Demographics + + + | Address | [address] | | | [place] [address] | + + + | Home Phone [...] [place] | | | | | [address] | | + + + + + Care Team Providers + +------+ + | Care Homicide Squad Commanding Officer Name | Role | Phone | [...] [place] | | | | | | [address] | | | | | | [phone] | | | +--------+ + + + [...] [place] | | | | | | [address] | | | | | | | | +--------+---------+ + + + documented as of this encounter Visit Diagnoses Not on filedocumented in this encounter"
--- OUTSIDE RECORDS SUMMARY | ~2019-10-11 | XMS | Encounter Summary ---
Demographics + + + | Address | [address] | | | [place] [address] | + + + | Home Phone [...] [place] | | | | | [address] | | + + + + + Care Team Providers + +------+ + | Care Relief Manager Name | Role | Phone | [...] [address] | [address] [place], [place] | fusion | | | | [place], [place] | [address] | | | | | [address] | | | | | | [phone] | | | +--------+ + + + [...] [place] | | | | | | [address] | | | | | | | | +--------+---------+ + + + documented as of this encounter Visit Diagnoses + + | Diagnosis | + + | Lumbago - Primary | + + | S/P lumbar fusion Arthrodesis status | + + documented in this encounter"
--- OUTSIDE RECORDS SUMMARY | ~2019-10-11 | XMS | Encounter Summary ---
Demographics + + + | Address | [address] | | | [place] [address] | + + + | Home Phone [...] [place], [place] | | | | | [address] | | + + + + + Care Team Providers + +------+ + | Care Hospice Team Lead Name | Role | Phone | + +------+ + PCP | Unavailable | + +------+ + Encounter Details +--------+ + + + + | Date | Type | Department | Care Team | Description | +--------+ + + + + | 09/10/ | Hospital | [facility] | | | | 1992 | Encounter | MED CTR LABORATORY | | | | | | [address] | | | | | | [place] | | | | | | [address] | | | | | | [phone] | | | +--------+ + + + [...] | | | | | [place] | | | | | | [address] | | | | | | | | +--------+---------+ + + + documented as of this encounter Visit Diagnoses Not on filedocumented in this encounter"
--- OUTSIDE RECORDS SUMMARY | ~2019-10-11 | XMS | Encounter Summary ---
Demographics + + + | Address | [address] | | | [place] [address] | + + + | Home Phone [...] [place] | | | | | [address] | | + + + + + Care Team Providers + +------+ + | Care Metal Polisher Name | Role | Phone | [...] + + | 09/10/ | Documentati | [facility] | Katharine Moncada, | Other (urgent | | 2019 | on | CARDIOLOGY [place] | Technologist | report) | | | | [address] | | | | | | [place] | | | | | | [address] | | | | | | [phone] | | | +--------+ + + + [...] [place] | | | | | | [address] | | | | | | | | +--------+---------+ + + + documented as of this encounter Visit Diagnoses Not on filedocumented in this encounter"
--- OUTSIDE RECORDS SUMMARY | ~2019-10-11 | XMS | Encounter Summary ---
Demographics + + + | Address | [address] | | | [place] [address] | + + + | Home Phone [...] [place] | | | | | [address] | | + + + + + Care Team Providers + +------+ + | Care Pharmacy Services Representative Name | Role | Phone | [...] [place] | | | | | | [address] | | | | | | [phone] | | | +--------+ + + + [...] [place] | | | | | | [address] | | | | | | | | +--------+---------+ + + + documented as of this encounter Visit Diagnoses Not on filedocumented in this encounter"
--- OUTSIDE RECORDS SUMMARY | ~2019-10-11 | XMS | Encounter Summary ---
Demographics + + + | Address | [address] | | | [place] [address] | + + + | Home Phone [...] [place] | | | | | [address] | | + + + + + Care Team Providers + +------+ + | Care Distillery Miller Name | Role | Phone | [...] + + | 07/08/ | Telephone | [facility] | Frandy Teresa, | Other (post op call | | 2013 | | NEUROSURGERY [address] | DO [address] | ) | | | | [address] | [address] [place], [place] | | | | | [place], [place] | [address] | | | | | [address] | | | | | | [phone] | | | +--------+ + + + [...] | | | | | [place] | | | | | | [address] | | | | | | | | +--------+---------+ + + + documented as of this encounter Visit Diagnoses Not on filedocumented in this encounter"
--- OUTSIDE RECORDS SUMMARY | ~2019-10-11 | XMS | Encounter Summary ---
Demographics + + + | Address | [address] | | | [place] [address] | + + + | Home Phone [...] [place] | | | | | [address] | | + + + + + Care Team Providers + +------+ + | Care Grain Operations Manager Name | Role | Phone | + +------+ + | Adriano Patrick MD | PCP | | + +------+ + Encounter Details +--------+ + + + + | Date | Type | Department | Care Team | Description | +--------+ + + + + | 05/16/ | Orders Only | [facility] | Provider, | | | 2018 | | SYSTEM GENERIC OP | [address] | | | | | CONVERSION [address] | | | | | [address] [place], [place] | [place] [address] | | | | | [address] | | | | | | [phone] | | | +--------+ + + + [...] | | | | | [place], [place] | | | | | | [address] | | | | | | | | +--------+---------+ + + + documented as of this encounter Visit Diagnoses Not on filedocumented in this encounter"
--- OUTSIDE RECORDS SUMMARY | ~2019-10-11 | XMS | Encounter Summary ---
Demographics + + + | Address | [address] | | | [place] [address] | + + + | Home Phone [...] [place] | | | | | [address] | | + + + + + Care Team Providers + +------+ + | Care Chopper Gun Operator Name | Role | Phone | [...] [address] | [address] [place], [place] | (Primary Dx) | | | | [place], [place] | [address] | | | | | [address] | | | | | | [phone] | | | +--------+ + + + [...] [place] | | | | | | [address] | | | | | | | [...] + | MISCELLANEOUS LAB | | | [phone] | + +---------+ + + | MISCELANIOUS LAB | | | [phone] | + +---------+ + + documented in this encounter Visit Diagnoses + + | Diagnosis | + + | Status post lumbar spinal fusion - Primary Arthrodesis status | + + documented in this encounter"
--- OUTSIDE RECORDS SUMMARY | ~2019-10-11 | XMS | Encounter Summary ---
Demographics + + + | Address | [address] | | | [place] [address] | + + + | Home Phone [...] [place] | | | | | [address] | | + + + + + Care Team Providers + +------+ + | Care Pipe Organ Mechanic Apprentice Name | Role | Phone | [...] + | 08/26/ | Refill | [facility] | Frandy Teresa, | Medication Refill | | 2013 | | [address] | DO [address] | | | | | [address] | [address] [place], [place] | | | | | [place], [place] | [address] | | | | | [address] | | | | | | [phone] | | | +--------+--------+ + + + [...] | | | | | [place] | | | | | | [address] | | | | | | | | +--------+---------+ + + + documented as of this encounter Visit Diagnoses Not on filedocumented in this encounter"
--- OUTSIDE RECORDS SUMMARY | ~2019-10-11 | XMS | Encounter Summary ---
Demographics + + + | Address | [address] | | | [place] [address] | + + + | Home Phone [...] [place] | | | | | [address] | | + + + + + Care Team Providers + +------+ + | Care Customer Service Dispatcher Name | Role | Phone | [...] | | | spondylolist | | [address] | | | | | hesis | | [place], | | | | | Spinal | | [place] [address] | | | | | stenosis, | | Phone: | | | | | lumbar | | [phone] | | | | | region, | | Fax: | | | | | without | | [phone] | | | | | neurogenic | [...] + + | 07/02/ | Hospital | [facility] | Frandy Teresa, | Degenerative disc | | 2013 - | Encounter | MED CTR SURGICAL | DO [address] | disease, lumbar | | | | [address] | [address] [address] [place] | (Primary Dx); | | 07/05/ | | [place] [address] | [id number] | Diabetes mellitus | | 2013 | | [phone] | | ([facility]); Disturbance | | | [...] might be different fro m the original. [facility] DISCHARGE SUMMARY PATIENT NAME: Cindy Arndt [...] Take 15 mg by mouth nightl y. [place]-3 Fatty Acids (FISH OIL CONCENTRATE) 1000 [...] prophylaxis -DC plan: SNF versus home with [facility] any time. Maria T Storm RN - 07/04/2014 6:56 PM PDTFoley cath dc'd and MARI drain dc'd no problems. Chris Lynn PA-C - 07/04/2014 7:43 AM PDT [facility] PROGRESS NOTE Pt. Name/Age/: Cindy Arndt 58 y.o. 1955 Med. Record Number: [id number] Date of admission: 07/02/2014 Subjective: The patient [...] mari drain and riley cath today. D/c director zone. Patient Active Problem List Diagnosis LUMBAR DISC [...] signed by: Chris Nicole, 07/04/2014 7:45 [facility] Chris Lynn PA-C - 07/03/2014 7:13 AM PDT . [facility] PROGRESS NOTE Pt. Name/Age/: Cindy Arndt 58 y.o. 1955 Med. Record Number: [id number] Date of admission: 07/02/2014 Subjective: The patient [...] Electronically signed by: Chris Nicole, 07/03/2014 7:13 [facility] Ton Menjivar, KRIS - 07/03/2014 6:50 [...] [place] | | | | | | [address] | | | | | | | [...] + | [facility] | [address] | [place], [place] | [phone] | | [facility] | | [address] | | | - LABORATORY | | | | + + + + + | [facility] | [address] | [place], [place] | | | [facility] | | [address] | | | - LABORATORY | | [...] + | [facility] | [address] | [place] | [phone] | | [facility] | | [address] | | | - LABORATORY | | | | + + + + + | [facility] | [address] | [place] | | | [facility] | | [address] | | | - LABORATORY | | [...] + | [facility] | [address] | [place] | [phone] | | [facility] | | [address] | | | - LABORATORY | | | | + + + + + | [facility] | [address] | [place] | | | [facility] | | [address] | | | - LABORATORY | | [...] + | [facility] | [address] | [place], [place] | [phone] | | [facility] | | [address] | | | - LABORATORY | | | | + + + + + | [facility] | [address] | [place], [place] | | | [facility] | | [address] | | | - LABORATORY | | [...] + | [facility] | [address] | [place] | [phone] | | [facility] | | [address] | | | - LABORATORY | | | | + + + + + | [facility] | [address] | [place] | | | [facility] | | [address] | | | - LABORATORY | | [...] + | [facility] | [address] | [place] | [phone] | | [facility] | | [address] | | | - LABORATORY | | | | + + + + + | [facility] | [address] | [place] | | | [facility] | | [address] | | | - LABORATORY | | [...] [address] | [place] | [phone] | | [facility] | | [address] | | | - LABORATORY | | | | + + + + + | [facility] | [address] | [place] | | | [facility] | | [address] | | | - LABORATORY | | [...] + | [facility] | [address] | [place], [place] | [phone] | | [facility] | | [address] | | | - LABORATORY | | | | + + + + + | [facility] | [address] | [place], [place] | | | [facility] | | [address] | | | - LABORATORY | | [...] [address] | [place] | [phone] | | [facility] | | [address] | | | - LABORATORY | | | | + + + + + | [facility] | [address] | [place], [place] | | | [facility] | | [address] | | | - LABORATORY | | [...] | of hardware for posterior fusion from [id number] S1 with interbody hardware at L5-S1. The [...] + + | Performing | Address | City/State/[facility] | Phone Number | | Organization | | | | + +---------+ + + | MISCELLANEOUS LAB | | | [phone] | + +---------+ + + | MISCELANIOUS LAB | | | [phone] | + +---------+ + + POC Glucose [...] + | [facility] | [address] | [place], [place] | [phone] | | [facility] | | [address] | | | - LABORATORY | | | | + + + + + | [facility] | [address] | [place], [place] | | | [facility] | | [address] | | | - LABORATORY | | [...] + | [facility] | [address] | [place] | [phone] | | [facility] | | [address] | | | - LABORATORY | | | | + + + + + | [facility] | [address] | [place] | | | [facility] | | [address] | | | - LABORATORY | | [...] | | | POC | | | [facility] | | | | | | [...] + | [facility] | [address] | [place] | [phone] | | [facility] | | [address] | | | - LABORATORY | | | | + + + + + | [facility] | [address] | [place] | | | [facility] | | [address] | | | - LABORATORY | | [...] + | [facility] | [address] | [place], [place] | [phone] | | [facility] | | [address] | | | - LABORATORY | | | | + + + + + | [facility] | [address] | [place] | | | [facility] | | [address] | | | - LABORATORY | | [...] + | [facility] | [address] | [place] | [phone] | | [facility] | | [address] | | | - LABORATORY | | | | + + + + + | [facility] | [address] | [place] | | | [facility] | | [address] | | | - LABORATORY | | [...] | [facility] | | [address] | | | - BLOOD BANK | [...] + +---------+ +---+---+---+ | morphine 5 mg/mL ORNAMENTAL METAL ERECTOR APPRENTICE syringe | New Bag | 07/02/20 | [...] | | | | Dose(mg): 0, Starting ORNAMENTAL METAL ERECTOR APPRENTICE | | | | | | | Dose(mg): 1, Incremental Increase | | | | | | | ORNAMENTAL METAL ERECTOR APPRENTICE Dose(mg): 0.5, Maximum ORNAMENTAL METAL ERECTOR APPRENTICE | | | | | | | [...]
--- OUTSIDE RECORDS SUMMARY | ~2019-10-11 | XMS | Encounter Summary ---
Demographics + + + | Address | [address] | | | [place] [address] | + + + | Home Phone [...] [place] | | | | | [address] | | + + + + + Care Team Providers + +------+ + | Care Security Systems Manager Name | Role | Phone | + +------+ + | Natalee Andersen NP | PCP | | + +------+ + Encounter Details +--------+ + + + + | Date | Type | Department | Care Team | Description | +--------+ + + + + | 09/27/ | Hospital | [facility] | Frandy Teresa, | Lumbar spondylosis; | | 2013 | Encounter | MED CTR XRAY [address] | DO [address] | S/P lumbar fusion | | | | [place] | [address] [place], [place] | | | | | [place] [address] | [address] | | | | | [phone] | | | +--------+ + + + [...] + + + +---------+ + + | [place]-3 Fatty | Take 1,000 mg by | [...] [place] | | | | | | [address] | | | | | | | [...] + | MISCELLANEOUS LAB | | | [phone] | + +---------+ + + | MISCELANIOUS LAB | | | [phone] | + +---------+ + + documented in this encounter Visit Diagnoses + + | Diagnosis | + + | Lumbar spondylosis Lumbosacral spondylosis without myelopathy | + + | S/P lumbar fusion Arthrodesis status | + + documented in this encounter"
--- OUTSIDE RECORDS SUMMARY | ~2019-10-11 | XMS | Encounter Summary ---
Demographics + + + | Address | [address] | | | [place] [address] | + + + | Home Phone [...] [place], [place] | | | | | [address] | | + + + + + Care Team Providers + +------+ + | Care Principal Trainer Name | Role | Phone | + +------+ + PCP | Unavailable | + +------+ + Encounter Details +--------+ + + + + | Date | Type | Department | Care Team | Description | +--------+ + + + + | 02/02/ | Hospital | [facility] | | | | 1997 - | Encounter | MED CTR GENERIC PSY | | | | | | CONV DEPT [address] | | | | 02/05/ | | [address], | | | | 1997 | | [place] [address] | | | | | | [phone] | | | +--------+ + + + [...] [place] | | | | | | [address] | | | | | | | | +--------+---------+ + + + documented as of this encounter Visit Diagnoses Not on filedocumented in this encounter"
--- OUTSIDE RECORDS SUMMARY | ~2019-10-11 | XMS | Encounter Summary ---
Demographics + + + | Address | [address] | | | [place] [address] | + + + | Home Phone [...] [place] | | | | | [address] | | + + + + + Care Team Providers + +------+ + | Care Back Line Cook Name | Role | Phone | [...] + + | 04/30/ | Office | [facility] | Russell Alfaro PA | ROGERS on CPAP (Primary | | 2015 | Visit | SLEEP DISORDER [address] | [address] | Dx) | | | | [address] | [place] | | | | | [place] [address] | [address] | | | | | [phone] | | | +--------+---------+ + + + [...] Insomnia Severity Index Insomnia Severity Index 13 [place] Sleepiness Scale Sitting and reading 3 Watching [...] nasal obtained from: [facility] [place] pressure: 11-20 cm Median: 12.1 cm 95%: [...] appro priate paperwork. Thirty minutes were spent [id number], with the majority of time spent i [...] | | | | | [place], [place] | | | | | | [address] | | | | | | | | +--------+---------+ + + + documented as of this encounter Visit Diagnoses + + | Diagnosis | + + | ROGERS on CPAP - Primary Obstructive sleep apnea (adult) (pediatric) | + + documented in this encounter"
--- OUTSIDE RECORDS SUMMARY | ~2019-10-11 | XMS | Encounter Summary ---
Demographics + + + | Address | [address] | | | [place] [address] | + + + | Home Phone [...] [place], [place] | | | | | [address] | | + + + + + Care Team Providers + +------+ + | Care Transition Rn Name | Role | Phone | + +------+ + PCP | Unavailable | + +------+ + Encounter Details +--------+ + + + + | Date | Type | Department | Care Team | Description | +--------+ + + + + | 12/27/ | Hospital | [facility] | | | | 1995 | Encounter | MED CTR LABORATORY | | | | | | [address] | | | | | | [place] | | | | | | [address] | | | | | | [phone] | | | +--------+ + + + [...] | | | | | [place] | | | | | | [address] | | | | | | | | +--------+---------+ + + + documented as of this encounter Visit Diagnoses Not on filedocumented in this encounter"
--- OUTSIDE RECORDS SUMMARY | ~2019-10-11 | XMS | Encounter Summary ---
Demographics + + + | Address | [address] | | | [place] [address] | + + + | Home Phone [...] [place] | | | | | [address] | | + + + + + Care Team Providers + +------+ + | Care Airplane Charter Clerk Name | Role | Phone | [...] + + | 08/22/ | Documentati | [facility] | Katharine Moncada, | Other (urgent | | 2019 | on | CARDIOLOGY [place] | Technologist | report) | | | | [address] | | | | | | [place] | | | | | | [address] | | | | | | [phone] | | | +--------+ + + + [...] [place] | | | | | | [address] | | | | | | | | +--------+---------+ + + + documented as of this encounter Visit Diagnoses Not on filedocumented in this encounter"
--- OUTSIDE RECORDS SUMMARY | ~2019-10-11 | XMS | Encounter Summary ---
Demographics + + + | Address | [address] | | | [place] [address] | + + + | Home Phone [...] [place] | | | | | [address] | | + + + + + Care Team Providers + +------+ + | Care Tag Meter Operator Name | Role | Phone | [...] + | 01/02/ | Telephone | [facility] | Frandy Teresa, | Other (6m x-ray ) | | 2014 | | NEUROSURGERY [address] | DO [address] | | | | | [address] | [address] [place], [place] | | | | | [place], [place] | [id number] | | | | | [address] | | | | | | [phone] | | | +--------+ + + + [...] [place] | | | | | | [address] | | | | | | | | +--------+---------+ + + + documented as of this encounter Visit Diagnoses Not on filedocumented in this encounter"
--- OUTSIDE RECORDS SUMMARY | ~2019-10-11 | XMS | Encounter Summary ---
Demographics + + + | Address | [address] | | | [place] [address] | + + + | Home Phone [...] [place] | | | | | [address] | | + + + + + Care Team Providers + +------+ + | Care Food Service Coordinator Name | Role | Phone | + +------+ + | Natalee Andersen NP | PCP | | + +------+ + Encounter Details +--------+---------+ + + + | Date | Type | Department | Care Team | Description | +--------+---------+ + + + | 06/25/ | Surgery | [facility] | Frandy Teresa, | Canceled | | 2013 | | MED CTR OR INTRA OP | DO [address] | PROCEDURE NOT | | | | [address] | [address] [place], [place] | PERFORMED | | | | [place], [place] | [address] | | | | | [address] | | | | | | [phone] | | | +--------+---------+ + + + [...] + + + +---------+ + + | [place]-3 Fatty | Take 1,000 mg by | [...] | | | | | [place], [place] | | | | | | [id number] | | | | | | | [...] mL/min/1.73m2 | [facility] | | | GREEK | RATE,ESTIMATED | | MEDICAL | | | | mL/min/1.99u4Rqbg than | | CENTER - | | [...] + | [facility] | [address] | [place] | [phone] | | [facility] | | [address] | | | - LABORATORY | | | | + + + + + | [facility] | [address] | [place] | | | [facility] | | [address] | | | - LABORATORY | | [...] + | [facility] | [address] | [place] | [phone] | | [facility] | | [address] | | | - LABORATORY | | | | + + + + + | [facility] | [address] | [place] | | | [facility] | | [address] | | | - LABORATORY | | [...] [address] | [place] | [phone] | | [facility] | | [address] | | | - LABORATORY | | | | + + + + + | [facility] | [address] | [place], [place] | | | [facility] | | [address] | | | - LABORATORY | | [...] St | [place] | | | [facility] | | [address] | | | - BLOOD BANK | [...] | + + + + + | [facility] | [address] | [place], [place] | [phone] | | [facility] | | [address] | | | - LABORATORY | | | | + + + + + | [facility] | [address] | [place], [place] | | | [facility] | | [address] | | | - LABORATORY | | [...]
--- OUTSIDE RECORDS SUMMARY | ~2019-10-11 | XMS | Encounter Summary ---
Demographics + + + | Address | [address] | | | [place] [address] | + + + | Home Phone [...] [place] | | | | | [address] | | + + + + + Care Team Providers + +------+ + | Care State Comptroller Name | Role | Phone | + +------+ + | Natalee Andersen NP | PCP | | + +------+ + Encounter Details +--------+ + + + + | Date | Type | Department | Care Team | Description | +--------+ + + + + | 05/02/ | Hospital | [facility] | Frandy Teresa, | Back pain | | 2014 | Encounter | MED CTR XRAY [address] | DO [address] | | | | | [place] | [address] [place] | | | | | [place] [address] | [address] | | | | | [phone] | | | +--------+ + + + [...] + + + +---------+ + + | [place]-3 Fatty | Take 1,000 mg by [...] | | | | | [place] | | | | | | [address] | | | | | | | [...] + | MISCELLANEOUS LAB | | | [phone] | + +---------+ + + | MISCELANIOUS LAB | | | [phone] | + +---------+ + + documented in this encounter Visit Diagnoses + + | Diagnosis | + + | Back pain Backache, unspecified | + + documented in this encounter"
--- OUTSIDE RECORDS SUMMARY | ~2019-10-11 | XMS | Encounter Summary ---
Demographics + + + | Address | [address] | | | [place] [address] | + + + | Home Phone [...] [place], [place] | | | | | [address] | | + + + + + Care Team Providers + +------+ + | Care Multimedia Manager Name | Role | Phone | + +------+ + PCP | Unavailable | + +------+ + Encounter Details +--------+ + + + + | Date | Type | Department | Care Team | Description | +--------+ + + + + | 02/28/ | Hospital | [facility] | Deon Gonzales | | | 2011 | Encounter | MED CTR SLEEP | MD [place] | | | | | [place] [address] | [place] | | | | | [place], [place] | [place] [address] | | | | | [address] | [phone] | | | | | [phone] | | | +--------+ + + + [...] [place] | | | | | | [address] | | | | | | | | +--------+---------+ + + + documented as of this encounter Visit Diagnoses Not on filedocumented in this encounter"
--- OUTSIDE RECORDS SUMMARY | ~2019-10-11 | XMS | Encounter Summary ---
Demographics + + + | Address | [address] | | | [place] [address] | + + + | Home Phone [...] [place] | | | | | [address] | | + + + + + Care Team Providers + +------+ + | Care Track Equipment Operator Name | Role | Phone [...] | | | spondylolist | | [address] | | | | | hesis | | [place], | | | | | Spinal | | [place] [address] | | | | | stenosis, | | Phone: | | | | | lumbar | | [phone] | | | | | region, | | Fax: | | | | | without | | [phone] | | | | | neurogenic | [...] | | | | | | | [place] | | | | | | [...] | | | | | | [place] | | | | | | | [...] | | | | | | [place] | | | | | | | [...] + + | 07/02/ | Surgery | [facility] | Frandy Teresa, | MIS L5-S1 | | 2013 | | MED CTR OR INTRA OP | DO [address] | TRANSFORAMINAL | | | | [address] | [address] [place], [place] | LUMBAR INTERBODY | | | | [place] | [id number] | FUSION | | | | [address] | | | | | | [phone] | | | +--------+---------+ + + + [...] might be different fro m the original. [facility] DISCHARGE SUMMARY PATIENT NAME: Cindy [...] Stable for discharge to SNF. DISPOSITION: SNF ([facility]) DISCHARGE MEDICATIONS Medications prior to admission [...] Take 15 mg by mouth nightl y. [place]-3 Fatty Acids (FISH OIL CONCENTRATE) 1000 MG [...] + + + +---------+ + + | [place]-3 Fatty | Take 1,000 mg by | [...] prophylaxis -DC plan: SNF versus home with [facility] any time. aria T Neff RN - 07/04/2014 6:56 PM PDTFoley cath dc'd and MARI drain dc'd no problems. Chris Lynn PA-C - 07/04/2014 7:43 AM PDT [facility] PROGRESS NOTE Pt. Name/Age/: Cindy Arndt 58 y.o. 1955 Med. Record Number: [id number] Date of admission: 07/02/2014 Subjective: The patient [...] home medications. D/C plan: Home tomorrow with [facility]. D/c mari drain and riley cath today. D/c can sterilizer. Patient Active Problem List Diagnosis LUMBAR DISC [...] signed by: Chris Nicole, 07/04/2014 7:45 [facility] Chris Lynn PA-C - 07/03/2014 7:13 AM PDT . [facility] PROGRESS NOTE Pt. Name/Age/: Cindy Arndt 58 y.o. 1955 Med. Record Number: [id number] Date of admission: 07/02/2014 Subjective: The patient [...] Electronically signed by: Chris Nicole, 07/03/2014 7:13 [facility] Ton Johnston, KRIS - 07/03/2014 6:50 [...] | | | | | [place] | | | | | | [address] | | | | | | | [...] + | [facility] | [address] | [place], [place] | [phone] | | [facility] | | [address] | | | - LABORATORY | | | | + + + + + | [facility] | [address] | [place], [place] | | | [facility] | | [address] | | | - LABORATORY | | [...] + | [facility] | [address] | [place] | [phone] | | [facility] | | [address] | | | - LABORATORY | | | | + + + + + | [facility] | [address] | [place] | | | [facility] | | [address] | | | - LABORATORY | | [...] + | [facility] | [address] | [place], [place] | [phone] | | [facility] | | [address] | | | - LABORATORY | | | | + + + + + | [facility] | [address] | [place], [place] | | | [facility] | | [address] | | | - LABORATORY | | [...] + | [facility] | [address] | [place] | [phone] | | [facility] | | [address] | | | - LABORATORY | | | | + + + + + | [facility] | [address] | [place], [place] | | | [facility] | | [address] | | | - LABORATORY | | [...] + | [facility] | [address] | [place], [place] | [phone] | | [facility] | | [address] | | | - LABORATORY | | | | + + + + + | [facility] | [address] | [place] | | | [facility] | | [address] | | | - LABORATORY | | [...] + | [facility] | [address] | [place] | [phone] | | [facility] | | [address] | | | - LABORATORY | | | | + + + + + | [facility] | [address] | [place] | | | [facility] | | [address] | | | - LABORATORY | | [...] + | [facility] | [address] | [place] | [phone] | | [facility] | | [address] | | | - LABORATORY | | | | + + + + + | [facility] | [address] | [place] | | | [facility] | | [address] | | | - LABORATORY | | [...] + | [facility] | [address] | [place] | [phone] | | [facility] | | [address] | | | - LABORATORY | | | | + + + + + | [facility] | [address] | [place] | | | [facility] | | [address] | | | - LABORATORY | | [...] [address] | [place] | [phone] | | [facility] | | [address] | | | - LABORATORY | | | | + + + + + | [facility] | [address] | [place], [place] | | | [facility] | | [address] | | | - LABORATORY | | [...] | of hardware for posterior fusion from F6qtchmgn S1 with interbody hardware at L5-S1. The [...] + | MISCELLANEOUS LAB | | | [phone] | + +---------+ + + | MISCELANIOUS LAB | | | [phone] | + +---------+ + + POC Glucose [...] + | [facility] | [address] | [place] | [phone] | | [facility] | | [address] | | | - LABORATORY | | | | + + + + + | [facility] | [address] | [place] | | | [facility] | | [address] | | | - LABORATORY | | [...] + | [facility] | [address] | [place], [place] | [phone] | | [facility] | | [address] | | | - LABORATORY | | | | + + + + + | [facility] | [address] | [place] | | | [facility] | | [address] | | | [...] | | | POC | | | [facility] | | | | | [...] + | [facility] | [address] | [place] | [phone] | | [facility] | | [address] | | | - LABORATORY | | | | + + + + + | [facility] | [address] | [place] | | | [facility] | | [address] | | | - LABORATORY | | [...] + | [facility] | [address] | [place] | [phone] | | [facility] | | [phone] | | | - LABORATORY | | | | + + + + + | [facility] | [address] | [place] | | | [facility] | | [address] | | | - LABORATORY | | [...] + | [facility] | [address] | [place], [place] | [phone] | | [facility] | | [address] | | | - LABORATORY | | | | + + + + + | [facility] | [address] | [place], [place] | | | [facility] | | [address] | | | - LABORATORY | | [...] ST. | [address] | [place] | | | [facility] | | [address] | | | - BLOOD BANK | [...] mLs | | Surgical | | 1:200,000 0.25-1:[id number] % | | 14 12:42 | | [...]
--- OUTSIDE RECORDS SUMMARY | ~2019-10-11 | XMS | Encounter Summary ---
Demographics + + + | Address | [address] | | | [place] [address] | + + + | Home Phone [...] [place] | | | | | [address] | | + + + + + Care Team Providers + +------+ + | Care Button Maker And Installer Name | Role | Phone | [...] + | 08/13/ | Documentati | [facility] | Katharine Moncada, | Other (urgent | | 2019 | on | CARDIOLOGY [place] | Technologist | report) | | | | [address] | | | | | | [place] | | | | | | [address] | | | | | | [phone] | | | +--------+ + + + [...] [place] | | | | | | [address] | | | | | | | | +--------+---------+ + + + documented as of this encounter Visit Diagnoses Not on filedocumented in this encounter"
--- OUTSIDE RECORDS SUMMARY | ~2019-10-11 | XMS | Encounter Summary ---
Demographics + + + | Address | [address] | | | [place] [address] | + + + | Home Phone [...] [place] | | | | | [address] | | + + + + + Care Team Providers + +------+ + | Care Oncology Coordinator Name | Role | Phone | + +------+ + | Adriano Patrick MD | PCP | | + +------+ + Encounter Details +--------+ + + + + | Date | Type | Department | Care Team | Description | +--------+ + + + + | 06/12/ | Hospital | [facility] | Frandy Teresa, | No Show | | 2014 | Encounter | MED CTR | DO [address] | | | | | ELECTRODIAGNOSTICS | [address] [place], [place] | | | | | [address] [place] | [address] | | | | | [place] [address] | | | | | | [phone] | | | +--------+ + + + [...] [place] | | | | | | [address] | | | | | | | | +--------+---------+ + + + documented as of this encounter Visit Diagnoses Not on filedocumented in this encounter"
--- OUTSIDE RECORDS SUMMARY | ~2019-10-11 | XMS | Encounter Summary ---
Demographics + + + | Address | [address] | | | [place] [address] | + + + | Home Phone [...] [place], [place] | | | | | [address] | | + + + + + Care Team Providers + +------+ + | Care Sheet Metal Shop Helper Name | Role | Phone | + +------+ + PCP | Unavailable | + +------+ + Encounter Details +--------+ + + + + | Date | Type | Department | Care Team | Description | +--------+ + + + + | 03/13/ | Hospital | [facility] | | | | 1996 - | Encounter | MED CTR GENERIC OP | | | | | | CONV DEPT [address] | | | | 03/21/ | | [place], | | | | 1996 | | [place] [address] | | | | | | [phone] | | | +--------+ + + + [...] [place] | | | | | | [address] | | | | | | | | +--------+---------+ + + + documented as of this encounter Visit Diagnoses Not on filedocumented in this encounter"
--- OUTSIDE RECORDS SUMMARY | ~2019-10-11 | XMS | Encounter Summary ---
Demographics + + + | Address | [address] | | | [place] [address] | + + + | Home Phone [...] [place] | | | | | [address] | | + + + + + Care Team Providers + +------+ + | Care Home Health Physical Therapist Name | Role | Phone | [...] + + | 03/04/ | Telephone | [facility] | Baudilio Newman | Other (Plavix) | | 2014 | | NEUROLOGY LAURIE | MD Pollo Need updated | | | | | [address], | address | | | | | [address] [place] | | | | | | [place] [address] | | | | | | [phone] | | | +--------+ + + + [...] [place] | | | | | | [address] | | | | | | | | +--------+---------+ + + + documented as of this encounter Visit Diagnoses Not on filedocumented in this encounter"
--- OUTSIDE RECORDS SUMMARY | ~2019-10-11 | XMS | Encounter Summary ---
Demographics + + + | Address | [address] | | | [place] [address] | + + + | Home Phone [...] [place], [place] | | | | | [address] | | + + + + + [...] + + | 12/06/ | Hospital | [facility] | | | | 1994 | Encounter | MED CTR LABORATORY | | | | | | [address] | | | | | | [place] | | | | | | [address] | | | | | | [phone] | | | +--------+ + + + [...] | | | | | [place] | | | | | | [address] | | | | | | | | +--------+---------+ + + + documented as of this encounter Visit Diagnoses Not on filedocumented in this encounter"
--- OUTSIDE RECORDS SUMMARY | ~2019-10-11 | XMS | Encounter Summary ---
Demographics + + + | Address | [address] | | | [place] [address] | + + + | Home Phone [...] [place] | | | | | [address] | | + + + + + Care Team Providers + +------+ + | Care Trench Shovel Operator Name | Role | Phone | [...] | [address] | [place], [place] | (Primary Dx); | | | | WAY [place] | [address] | Essential | | | | [place] | | hypertension; | | | | [address] | | Irregular heartbeat | | | | [phone] | | | +--------+---------+ + + + [...] Peterson DO - 07/19/2019 10:40 AM PDT [facility] Cardiology Follow Up Note Reason [...] by mouth daily. Blood Glucose Monitoring Suppl (Everest VERIO FLEX SYSTEM) w/Device KIT by Does not ap ply route. budesonide-formoterol (SYMBICORT) 160-4.5 MCG/ACT inhaler Inhale 2 puffs into the lungs 2 (two) times daily. Calcium Carbonate Antacid 1000 MG tablet Take 1,000 mg by mouth 3 (three) times daily. Cholecalciferol (VITAMIN D3) 07499 units CAPS Take by mouth once a [...] [place] | | | | | | [address] | | | | | | | [...]
--- OUTSIDE RECORDS SUMMARY | ~2019-10-11 | XMS | Encounter Summary ---
Demographics + + + | Address | [address] | | | [place] [address] | + + + | Home Phone [...] | [facility] | | | [...] [place] | | | | | [address] | | + + + + + Care Team Providers + +------+ + | Care Button Tufter Name | Role | Phone | + +------+ + | Basim Bolanos MD | PCP | | + +------+ + Encounter Details +--------+ + + + + | Date | Type | Department | Care Team | Description | +--------+ + + + + | 03/30/ | Hospital | [facility] | Tyrese Neely MD | | | 2012 | Encounter | MED CTR MP INTRA OP | [address], [place] | | | | | [address] | [address] [place], [place] | | | | | [place], [place] | [address] | | | | | [address] | | | | | | [phone] | | | +--------+ + + + [...] + + + +---------+ + + | Albert Lea-3 Fatty | Take 1,000 mg by | [...] [place] | | | | | | [address] | | | | | | | [...] + | [facility] | [address] | [place] | [phone] | | [facility] | | [address] | | | - LABORATORY | | | | + + + + + | [facility] | [address] | [place] | | | [facility] | | [address] | | | - LABORATORY | | [...] + | [facility] | [address] | [place], [place] | [phone] | | [facility] | | [address] | | | - LABORATORY | | | | + + + + + | [facility] | [address] | [place], [place] | | | [facility] | | [address] | | | - LABORATORY | | | | + + + + + documented in this encounter Visit Diagnoses Not on filedocumented in this encounter"
--- OUTSIDE RECORDS SUMMARY | ~2019-10-11 | XMS | Encounter Summary ---
Demographics + + + | Address | [address] | | | [place] [address] | + + + | Home Phone [...] [place] | | | | | [address] | | + + + + + Care Team Providers + +------+ + | Care Investment Officer Name | Role | Phone | [...] | Frandy Simons DO | [address] | | | | | of skin | [address] | [place], | | | | | sensation | [address] | [place] | | | | | Arthrodesis | [place], [place] | [address] | | | | | status Left | [address] | Phone: | | | | | leg | Phone: | [phone] | | | | | weakness | [phone] | Fax: | | | | | Procedures | Fax: | [phone] | | | | | MRI Lumbar | [phone] | | | | | | Spine [...] [address] | [address] [place], [place] | | | | | [place], [place] | [address] | | | | | [address] | | | | | | [phone] | | | +--------+ + + + [...] [place] | | | | | | [address] | | | | | | | [...] the round structure with high T1 and P2sqmvgl in the right L3 vertebral | | [...] + | MISCELLANEOUS LAB | | | [phone] | + +---------+ + + | MISCELANIOUS LAB | | | [phone] | + +---------+ + + documented in [...]
--- OUTSIDE RECORDS SUMMARY | ~2019-10-11 | XMS | Encounter Summary ---
Demographics + + + | Address | [address] | | | [place] [address] | + + + | Home Phone [...] [place] | | | | | [address] | | + + + + + Care Team Providers + +------+ + | Care Reprographics Associate Name | Role | Phone | [...] [address] | [address] [place], [place] | | | | | [place], [place] | [id number] | | | | | [address] | | | | | | [phone] | | | +--------+ + + + [...] | | | | | [place] | | | | | | [address] | | | | | | | | +--------+---------+ + + + documented as of this encounter Visit Diagnoses Not on filedocumented in this encounter"
--- OUTSIDE RECORDS SUMMARY | ~2019-10-11 | XMS | Encounter Summary ---
Demographics + + + | Address | [address] | | | [place] [address] | + + + | Home Phone [...] [place] | | | | | [address] | | + + + + + Care Team Providers + +------+ + | Care Board Stacker Name | Role | Phone | [...] | | | spondylolist | | [address] | | | | | hesis | | [place], | | | | | Spinal | | [place] [address] | | | | | stenosis, | | Phone: | | | | | lumbar | | [phone] | | | | | region, | | Fax: | | | | | without | | [phone] | | | | | neurogenic | [...] | | | | | [address] | [address] [place] | | | | | [place] | [phone] | | | | | [address] | | | | | | [phone] | | | +--------+ + + + [...] Easy mask AW. DL times one with [facility] 3 easy view | | | 2 | Intubation | | | | 2 | | | | | 6 | | | +----+---+ + + | | 1 | AN Bite | | | | 2 | Block | | | | 2 | | | | | 7 | | | +----+---+ + + | | 1 | Bend | | | | 2 | 43-degrees | | | | 3 | | | | | 1 | | | +----+---+ + + | | 1 | Bend off | | | | 4 | [...] | | | | | [place], [place] | | | | | | [phone] | | | | | | | [...]
--- OUTSIDE RECORDS SUMMARY | ~2019-10-11 | XMS | Encounter Summary ---
Demographics + + + | Address | [address] | | | [place] [address] | + + + | Home Phone [...] [place] | | | | | [address] | | + + + + + Care Team Providers + +------+ + | Care Denial Management Representative Name | Role | Phone | [...] + | 02/21/ | Refill | [facility] | Deon Gonzales | Medication Refill | | 2012 | | SLEEP DISORDER [address] | MD Laure[place] [address] | | | | | [address] [place] | [address] [place] | | | | | [place] [address] | [place] [address] | | | | | [phone] | [phone] | | | | | | | [...] [place] | | | | | | [address] | | | | | | | | +--------+---------+ + + + documented as of this encounter Visit Diagnoses + + | Diagnosis | + + | Obstructive sleep apnea (adult) (pediatric) - Primary | + + documented in this encounter"
--- OUTSIDE RECORDS SUMMARY | ~2019-10-11 | XMS | Encounter Summary ---
Demographics + + + | Address | [address] | | | [place] [address] | + + + | Home Phone [...] [place] | | | | | [address] | | + + + + + Care Team Providers + +------+ + | Care Hat Body Sorter Name | Role | Phone | [...] | Transcriptions | + + | Interface, Business Coordinator In - 10/24/2006 3:09 AM PST | | [facility] | | Road [place], [place] [address] [place] | | [facility] HealthOPERATION RECORDMed Rec No.: [id number] Date: | | [...]
--- OUTSIDE RECORDS SUMMARY | ~2019-10-11 | XMS | Encounter Summary ---
Demographics + + + | Address | [address] | | | [place] [address] | + + + | Home Phone [...] [place], [place] | | | | | [address] | | + + + + + Care Team Providers + +------+ + | Care Fountain Dispenser Name | Role | Phone | + +------+ + PCP | Unavailable | + +------+ + Encounter Details +--------+ + + + + | Date | Type | Department | Care Team | Description | +--------+ + + + + | 03/11/ | [facility] | [facility] | Deon Gonzales | | | 2005 | Encounter | MED CTR SLEEP | MD Laure[address] | | | | | [place] [address] | [place] | | | | | [place], [place] | [place] [address] | | | | | [address] | [phone] | | | | | [phone] | | | +--------+ + + + [...] [place] | | | | | | [address] | | | | | | | | +--------+---------+ + + + documented as of this encounter Visit Diagnoses Not on filedocumented in this encounter"
--- OUTSIDE RECORDS SUMMARY | ~2019-10-11 | XMS | Encounter Summary ---
Demographics + + + | Address | [address] | | | [place] [address] | + + + | Home Phone [...] [place] | | | | | [address] | | + + + + + [...] [address] | [address] [place], [place] | | | | | [place], [place] | [address] | | | | | [address] | | | | | | [phone] | | | +--------+ + + + [...] [place] | | | | | | [address] | | | | | | | [...] + | MISCELLANEOUS LAB | | | [phone] | + +---------+ + + | MISCELANIOUS LAB | | | [phone] | + +---------+ + + documented in this encounter Visit Diagnoses + + | Diagnosis | + + | Back pain - Primary Backache, unspecified | + + documented in this encounter"
--- OUTSIDE RECORDS SUMMARY | ~2019-10-11 | XMS | Encounter Summary ---
Demographics + + + | Address | [address] | | | [place] [address] | + + + | Home Phone [...] [place], [place] | | | | | [address] | | + + + + + Care Team Providers + +------+ + | Care School Psychology Specialist Name | Role | Phone | + +------+ + PCP | Unavailable | + +------+ + Encounter Details +--------+ + + + + | Date | Type | Department | Care Team | Description | +--------+ + + + + | 06/23/ | Hospital | [facility] | | | | 2000 | Encounter | MED CTR GENERIC OP | | | | | | CONV DEPT [address] | | | | | | [place], | | | | | | [place] [address] | | | | | | [phone] | | | +--------+ + + + [...] | | | | | [place] | | | | | | [address] | | | | | | | | +--------+---------+ + + + documented as of this encounter Visit Diagnoses Not on filedocumented in this encounter"
--- OUTSIDE RECORDS SUMMARY | ~2019-10-11 | XMS | Encounter Summary ---
Demographics + + + | Address | [address] | | | [place] [address] | + + + | Home Phone [...] [place] | | | | | [address] | | + + + + + Care Team Providers + +------+ + | Care Certified Industrial Hygienist Name | Role | Phone | + [...] + + | 08/24/ | Documentati | [facility] | Katharine Moncada, | Other (urgent | | 2019 | on | CARDIOLOGY [place] | Technologist | report) | | | | [address] | | | | | | [place] | | | | | | [address] | | | | | | [phone] | | | +--------+ + + + [...] [place] | | | | | | [address] | | | | | | | | +--------+---------+ + + + documented as of this encounter Visit Diagnoses Not on filedocumented in this encounter"
--- OUTSIDE RECORDS SUMMARY | ~2019-10-11 | XMS | Encounter Summary ---
Demographics + + + | Address | [address] | | | [place] [address] | + + + | Home Phone [...] [place] | | | | | [address] | | + + + + + Care Team Providers + +------+ + | Care Steeler Name | Role | Phone | + [...] | [address] [place] | [place], [address] | | | | | [address] [place], [place] | [place], [place] | | | | | [address] | [address] | | | | | [phone] | | | +--------+ + + + [...] | | | | | [place] | | | | | | [address] | | | | | | | | +--------+---------+ + + + documented as of this encounter Visit Diagnoses Not on filedocumented in this encounter"
--- OUTSIDE RECORDS SUMMARY | ~2019-10-11 | XMS | Encounter Summary ---
Demographics + + + | Address | [address] | | | [place] [address] | + + + | Home Phone [...] [place] | | | | | [address] | | + + + + + Care Team Providers + +------+ + | Care Health Insurance Agent Name | Role | Phone [...] [address] | [address] [place], [place] | Hypothyroidism; | | | | [place] | [address] | GERD; BACK PAIN, | | | | [address] | | LUMBAR, WITH | | | | [phone] | | RADICULOPATHY; | | | | [...] [place] | | | | | | [address] | | | | | | | [...]
--- OUTSIDE RECORDS SUMMARY | ~2019-10-11 | XMS | Encounter Summary ---
Demographics + + + | Address | [address] | | | [place] [address] | + + + | Home Phone [...] [place] | | | | | [address] | | + + + + + Care Team Providers + +------+ + | Care Internal Affairs Commander Name | Role | Phone | + [...] | | | | | | | [address] | | | | | | | Phone: | | | | | | | [phone] | | | | | | | Fax: | | | | | | | [phone] | | +--------+--------+ + + + + Encounter Details +--------+---------+ + + + | Date | Type | Department | Care Team | Description | +--------+---------+ + + + | 02/27/ | Office | [facility] | Baudilio Newman | Neuropathy (Primary | | 2015 | Visit | NEUROLOGY LAURIE | MD Pollo Need updated | Dx); Sleep apnea; | | | | [address] [address] [facility], | address | Stroke (HCC); | | | | [address] [place] | | Thyroid disease | | | | [place] [address] | | | | | | [phone] | | | +--------+---------+ + + + [...] supply of blood, brain tissue quickly dies. [id number] [employer]. [address] [place] [address], [place] [address]. All righ ts reserved. This information is not intended as a substitute for professional medical care. Always follow your healthcare professional's instructions. documented in this encounter Progress Notes Baudilio Newman MD - 02/27/2015 10:31 AM PDTFormatting of this note might be differen t from the original. Baudilio Newman MD [address] [facility] [place] [address] Neurology Outpatient New Patient Note Referring Provider: [...] history. Notes from her recent hospitalization at [facility] were reviewed in detail. Ms. Arndt started feeling off in the evening of 02/01. She felt dizzy and laid down to slee p. Upon waking, she felt her right side was numb. She tried to get up to go to the bathroom and realized she was weak as well on the right. She was taken to [facility] where she was diagnosed with a TIA/stroke [...] systol ically. She was reevaluated in the [facility] ED for one such event and [...] hospitalization . This specimen was characterized at [facility], but the report is not currently available for [facility]. Unfortunately, Ms. Arndt notes that her right leg was significantly impacted by her pr evious lower back problem and I fear that biopsy from this site may be clouded by neurogenic muscle changes resulting from this prior radiculopathy. Ms. rAndt started taking steroids for this myositis around [...] Laterality: N/A; Surgeon: Frandy castellanos DO; Location: [facility] MAIN OR Current Medications: Outpatient [...] tablet Take 15 mg by mouth nightly. Yale-3 Fatty Acids (FISH OIL CONCENTRATE) 1000 MG [...] BMI 46.04 kg /m2 Neck Circumference: 14" Jemison Sleepiness Scale: 2 General: well developed and [...] Romberg test negative Radiographic Review: CTA from [facility] reviewed on [facility]. No significant stenoses seen [...] No results found for this basename: hba1c, piw2cqd, ldl, ldldirect, ldlext, dldlex Lab Results Component [...] | | | | | [place], [place] | | | | | | [id number] | | | | | | | [...]
--- OUTSIDE RECORDS SUMMARY | ~2019-10-11 | XMS | Encounter Summary ---
Demographics + + + | Address | [address] | | | [place] [address] | + + + | Home Phone [...] [place] | | | | | [address] | | + + + + + Care Team Providers + +------+ + | Care Squirrel Man Name | Role | Phone | + +------+ + | Natalee Andersen NP | PCP | | + +------+ + Encounter Details +--------+ + + + + | Date | Type | Department | Care Team | Description | +--------+ + + + + | 05/02/ | Hospital | [facility] | Frandy Teresa, | Back pain | | 2014 | Encounter | MED CTR XRAY [address] | DO [address] | | | | | [place] | [facility] [address] [place] | | | | | [place] [address] | [address] | | | | | [phone] | | | +--------+ + + + [...] + + + +---------+ + + | [place]-3 Fatty | Take 1,000 mg by | [...] | | | | | [place] | | | | | | [address] | | | | | | | [...] + | MISCELLANEOUS LAB | | | [phone] | + +---------+ + + | MISCELANIOUS LAB | | | [phone] | + +---------+ + + documented in this encounter Visit Diagnoses + + | Diagnosis | + + | Back pain Backache, unspecified | + + documented in this encounter"
--- OUTSIDE RECORDS SUMMARY | ~2019-10-11 | XMS | Encounter Summary ---
Demographics + + + | Address | [address] | | | [place] [address] | + + + | Home Phone [...] [place], [place] | | | | | [address] | | + + + + + Care Team Providers + +------+ + | Care Manager Of Distribution Name | Role | Phone | + +------+ + PCP | Unavailable | + +------+ + Encounter Details +--------+ + + + + | Date | Type | Department | Care Team | Description | +--------+ + + + + | 07/17/ | Hospital | [facility] | | | | 1997 - | Encounter | MED CTR GENERIC PSY | | | | | | CONV DEPT [address] | | | | 07/25/ | | [place], | | | | 1997 | | [place] [address] | | | | | | [phone] | | | +--------+ + + + [...] [place] | | | | | | [address] | | | | | | | | +--------+---------+ + + + documented as of this encounter Visit Diagnoses Not on filedocumented in this encounter"
--- OUTSIDE RECORDS SUMMARY | ~2019-10-11 | XMS | Encounter Summary ---
Demographics + + + | Address | [address] | | | [place] [address] | + + + | Home Phone [...] [place] | | | | | [address] | | + + + + + Care Team Providers + +------+ + | Care Screwmaker Automatic Name | Role | Phone | + [...] + + | 08/15/ | Documentati | [facility] | Katharine Moncada, | Other (urgent | | 2019 | on | CARDIOLOGY [place] | Technologist | report) | | | | [address] | | | | | | [place] | | | | | | [address] | | | | | | [phone] | | | +--------+ + + + [...] [place] | | | | | | [address] | | | | | | | | +--------+---------+ + + + documented as of this encounter Visit Diagnoses Not on filedocumented in this encounter"
--- OUTSIDE RECORDS SUMMARY | ~2019-10-11 | XMS | Encounter Summary ---
Demographics + + + | Address | [address] | | | [place] [address] | + + + | Home Phone [...] [place], [place] | | | | | [address] | | + + + + + Care Team Providers + +------+ + | Care Veneer Gluer Name | Role | Phone | + +------+ + PCP | Unavailable | + +------+ + Encounter Details +--------+ + + + + | Date | Type | Department | Care Team | Description | +--------+ + + + + | 02/24/ | Hospital | [facility] | | | | 1997 | Encounter | MED CTR EMERGENCY | | | | | | [address] | | | | | | [place] | | | | | | [address] | | | | | | [phone] | | | +--------+ + + + [...] | | | | | [place] | | | | | | [address] | | | | | | | | +--------+---------+ + + + documented as of this encounter Visit Diagnoses Not on filedocumented in this encounter"
--- OUTSIDE RECORDS SUMMARY | ~2019-10-11 | XMS | Clinical Summary ---
Demographics + + + | Address | [address] | | | [place] [address] | + + + | Home Phone [...] [place] | | | | | [address] | | + + + + + Care Team Providers + +------+ + | Care Rubber Stamps And Dies Supervisor Name | Role | Phone | [...] | | Activ | | (VITAMIN D-3) 10453 | mouth Once a week. | | [...] | | | | | | ([facility]) | | | | | | [...] | | | | e | | ([employer] VERIO FLEX | | | | | [...] | | 2019 | | | D, Diesel Service Journeyman | calling to be seen | | [...] | | 2018 | | | D, Diesel Service Journeyman | to take monitor | | | | | | off. ) | +--------+ + + + + | 08/28/ | Telephone | Cardiology | Ashley Chávez | Other (Patient has | | 2018 | | | D, Diesel Service Journeyman | questions about | | | | [...] to | 2018 | | | D, Diesel Service Journeyman | tell patient what | | | [...] | | 2018 | | | D, Diesel Service Journeyman | anxious about urgent | | | [...] | | 2018 | | | Pollo, Diesel Service Journeyman | about coverage. ) | +--------+ + + + + | 07/30/ | Telephone | Cardiology | Ashley Chávez | Other (Patient | | 2018 | | | D, Diesel Service Journeyman | concerns ) | +--------+ + + + + | 07/24/ | Telephone | Cardiology | Ashley Chávez | Other (Patient is | | 2018 | | | D, Diesel Service Journeyman | worried about paying | | | [...] 04/10/ | Office | Cardiology | Desiree PetersonDO | | | 2020 | Visit | | [address] | | | | | | [place] | | | | | | [address] | | | | | | | [...] | [employer] - | | 04/02/ | [id number] | | 5ccImplanted: Qty: 1 on | | Spine | MEDT | | 2019 | | | 07/02/2014 by Frandy Teresa | | Lumbar | | | | /[id number] | | A, DO at [facility] | | | | | | 6-020 | | [facility] | | | | | | / | + +------+--------+ +--------+--------+--------+ | Graft Infuse Bone Kit Xxs - | | N/A: | SOFAMOR | | 01/21/ | [id number] | | [id number]: Qty: 1 on | | Spine | DANEK - DIV | | 2014 | 0 / | | 07/02/2014 by Frandy Teresa | | Lumbar | [employer] | | | /[id number] | | A, DO at [facility] | | | - SFDK | | | 06AAH | | [facility] | | | | | | | + +------+--------+ +--------+--------+--------+ | Imp Spn Spcr Cpstn 8x26mm - | | N/A: | SOFAMOR | | 01/11/ | [id number] | | [id number]: Qty: 1 on | | Spine | DANEK - DIV | | 2 | 6 / | | 07/02/2014 by Frandy Teresa | | Lumbar | [employer]TR[employer]IC | | | /[id number] | | DO Ronak at [facility] | | | - SFDK | | | 928 | | [facility] | | | | | | | + +------+--------+ +--------+--------+--------+ | Set Scrw Ns G5 Brk Off Ti | | N/A: | SOFAMOR | | | [id number] | | 4.75 - [id number]: | | Spine | DANEK - DIV | | | 0 / / | | Qty: 4 on 07/02/2014 by | | Lumbar | [employer] | | | | | Frandy Teresa DO at [facility] | | | - SFDK | | | | | [facility] | | | | | | | | [place] | | | | | | | + +------+--------+ +--------+--------+--------+ | RodImplanted: Qty: 1 on | | N/A: | | | | [id number] | | 07/02/2014 by Frandy Teresa | | Spine | | | | 540 / | | DO Ronak at [facility] | | Lumbar | | | | / | | [facility] | | | | | | | + +------+--------+ +--------+--------+--------+ | RodImplanted: Qty: 1 on | | N/A: | MEDTROL - | | | [id number] | | 07/02/2014 by Frandy Teresa | | Spine | MDTR | | | 545 / | | A DO at [facility] | | Lumbar | | | | / | | [facility] | | | | | | | + +------+--------+ +--------+--------+--------+ | Screw 7.5x50mm Sextant - | | N/A: | MEDTRONIC - | | | [id number] | | [id number]: Qty: 1 on | | Spine | MEDT | | | [id number] | | 07/02/2014 by Frandy Teresa | | Lumbar | | | | / / | | ADO at [facility] | | | | | | | | [facility] | | | | | | | + +------+--------+ +--------+--------+--------+ | Cannulated ScrewImplanted: | | N/A: | MEDTROL - | | | [id number] | | Qty: 1 on 07/02/2014 by | | Spine | MDTR | | | [id number] | | Frandy Teresa DO at [facility] | | Lumbar | | | | / / | | [facility] | | | | | | | | CENTER | | | | | | | + +------+--------+ +--------+--------+--------+ | Cannulated ScrewImplanted: | | N/A: | MEDTRONIC - | | | [id number] | | Qty: 1 on 07/02/2014 by | | Spine | MEDT | | | [id number] | | Frandy Teresa DO at [facility] | | Lumbar | | | | / / | | [facility] | | | | | | [...] +--------+ +---------+--------+ | MEDICARE | MEDICA | [id number] | 02/22/20 | [phone] | | Medica | | | RE | | 09-Pre | 5 | | re | | | PART A | | sent | | | | | | AND B | | | | | | + +--------+ +--------+ +---------+--------+ | MEDICARE | MEDICA | [id number] | 02/22/20 | [phone] | | Medica [...] [place] | | | 1 (Home) | [address] | + +--------+ +--------+ + + | Cindy Arndt L | Person | Self [birth year] | [address] | | | al/Fam | | 1955 | [phone] | [address] [place], [place] | | | [place] | | | 1 (Home) | [address] | + +--------+ +--------+ + + Advance Directives + + + + + | Type | Date Recorded | Patient | Explanation | | | | Web Sizer | | + + + + + | Power of | | | | | Director Of Catering Sales | | | | + + + [...]
--- OUTSIDE RECORDS SUMMARY | ~2019-10-11 | XMS | Encounter Summary ---
Demographics + + + | Address | [address] | | | [place] [address] | + + + | Home Phone [...] [place] | | | | | [address] | | + + + + + Care Team Providers + +------+ + | Care Properties Supervisor Name | Role | Phone | + +------+ + | Adriano Patrick MD | PCP | | + +------+ + Encounter Details +--------+ + + + + | Date | Type | Department | Care Team | Description | +--------+ + + + + | 05/16/ | Orders Only | [facility] | Provider, | | | 2018 | | SYSTEM GENERIC OP | MD [address] | | | | | CONVERSION [address] | [address] | | | | | [address] [place], [place] | [place] [address] | | | | | [address] | | | | | | [phone] | | | +--------+ + + + [...] | | | | | [place], [place] | | | | | | [address] | | | | | | | | +--------+---------+ + + + documented as of this encounter Visit Diagnoses Not on filedocumented in this encounter"
--- OUTSIDE RECORDS SUMMARY | ~2019-10-11 | XMS | Encounter Summary ---
Demographics + + + | Address | [address] | | | [place] [address] | + + + | Home Phone [...] [place] | | | | | [address] | | + + + + + Care Team Providers + +------+ + | Care Merchandising Director Name | Role | Phone | [...] | | | spondylolist | | [address] | | | | | hesis | | [place], | | | | | Spinal | | [place] [address] | | | | | stenosis, | | Phone: | | | | | lumbar | | [phone] | | | | | region, | | Fax: | | | | | without | | [phone] | | | | | neurogenic | [...] + + | 07/02/ | Surgery | [facility] | Frandy Teresa, | MIS L5-S1 | | 2013 | | MED CTR OR INTRA OP | DO [address] | TRANSFORAMINAL | | | | [address] | [address] [place], [place] | LUMBAR INTERBODY | | | | [place] | [id number] | FUSION | | | | [address] | | | | | | [phone] | | | +--------+---------+ + + + [...] might be different fro m the original. [facility] DISCHARGE SUMMARY PATIENT NAME: [...] Take 15 mg by mouth nightl y. [place]-3 Fatty Acids (FISH OIL CONCENTRATE) 1000 MG [...] + + +---------+ + + | [place]-3 Fatty | Take 1,000 mg by | [...] prophylaxis -DC plan: SNF versus home with [facility] any time. aria T Neff RN - 07/04/2014 6:56 PM PDTFoley cath dc'd and MARI drain dc'd no problems. Chris Lynn PA-C - 07/04/2014 7:43 AM PDT [facility] PROGRESS NOTE Pt. Name/Age/: Cindy Arndt 58 y.o. 1955 Med. Record Number: [id number] Date of admission: 07/02/2014 Subjective: The patient [...] home medications. D/C plan: Home tomorrow with [facility]. D/c mari drain and riley cath today. D/c sawyer helper. Patient Active Problem List Diagnosis LUMBAR DISC [...] 07/04/2014 7:45 [facility] Chris Lynn PA-C - 07/03/2014 7:13 AM PDT . [facility] PROGRESS NOTE Pt. Name/Age/: Cindy Arndt 58 y.o. 1955 Med. Record Number: [id number] Date of admission: 07/02/2014 Subjective: The patient [...] Electronically signed by: Chris Nicole, 07/03/2014 7:13 [facility] Ton Johnston, KRIS - 07/03/2014 6:50 [...] | | | | | [place] | | | | | | [address] | | | | | | | [...] + | [facility] | [address] | [place], [place] | [phone] | | [facility] | | [address] | | | - LABORATORY | | | | + + + + + | [facility] | [address] | [place], [place] | | | [facility] | | [address] | | | - LABORATORY | | [...] + | [facility] | [address] | [place] | [phone] | | [facility] | | [address] | | | - LABORATORY | | | | + + + + + | [facility] | [address] | [place] | | | [facility] | | [address] | | | - LABORATORY | | [...] + | [facility] | [address] | [place], [place] | [phone] | | [facility] | | [address] | | | - LABORATORY | | | | + + + + + | [facility] | [address] | [place], [place] | | | [facility] | | [address] | | | - LABORATORY | | [...] + | [facility] | [address] | [place] | [phone] | | [facility] | | [address] | | | - LABORATORY | | | | + + + + + | [facility] | [address] | [place], [place] | | | [facility] | | [address] | | | - LABORATORY | | [...] + | [facility] | [address] | [place], [place] | [phone] | | [facility] | | [address] | | | - LABORATORY | | | | + + + + + | [facility] | [address] | [place] | | | [facility] | | [address] | | | - LABORATORY | | [...] + | [facility] | [address] | [place] | [phone] | | [facility] | | [address] | | | - LABORATORY | | | | + + + + + | [facility] | [address] | [place] | | | [facility] | | [address] | | | - LABORATORY | | [...] + + | Performing | Address | City/State/[facility] | Phone Number | | Organization | | | | + + + + + | [facility] | [address] | [place] | [phone] | | [facility] | | [address] | | | - LABORATORY | | | | + + + + + | [facility] | [address] | [place] | | | [facility] | | [address] | | | - LABORATORY | | [...] + | [facility] | [address] | [place] | [phone] | | [facility] | | [address] | | | - LABORATORY | | | | + + + + + | [facility] | [address] | [place] | | | [facility] | | [address] | | | - LABORATORY | | [...] ST. | [address] | [place] | [phone] | | [facility] | | [address] | | | - LABORATORY | | | | + + + + + | [facility] | [address] | [place], [place] | | | [facility] | | [address] | | | - LABORATORY | | [...] | of hardware for posterior fusion from B4rntnbme S1 with interbody hardware at L5-S1. The [...] + | MISCELLANEOUS LAB | | | [phone] | + +---------+ + + | MISCELANIOUS LAB | | | [phone] | + +---------+ + + POC Glucose [...] + | [facility] | [address] | [place] | [phone] | | [facility] | | [address] | | | - LABORATORY | | | | + + + + + | [facility] | [address] | [place] | | | [facility] | | [address] | | | - LABORATORY | | [...] + | [facility] | [address] | [place], [place] | [phone] | | [facility] | | [address] | | | - LABORATORY | | | | + + + + + | [facility] | [address] | [place] | | | [facility] | | [address] | | | - LABORATORY | | [...] | | | POC | | | [facility] | | | | | [...] + | [facility] | [address] | [place] | [phone] | | [facility] | | [address] | | | - LABORATORY | | | | + + + + + | [facility] | [address] | [place] | | | [facility] | | [address] | | | - LABORATORY | | [...] + | [facility] | [address] | [place] | [phone] | | [facility] | | [address] | | | - LABORATORY | | | | + + + + + | [facility] | [address] | [place] | | | [facility] | | [address] | | | - LABORATORY | | [...] + | [facility] | [address] | [place], [place] | [phone] | | [facility] | | [address] | | | - LABORATORY | | | | + + + + + | [facility] | [address] | [place], [place] | | | [facility] | | [address] | | | - LABORATORY | | [...] ST. | [address] | [place] | | | [facility] | | [address] | | | - BLOOD BANK | [...] mLs | | Surgical | | 1:200,000 0.25-1:661849 % | | 14 12:42 | | [...]
--- OUTSIDE RECORDS SUMMARY | ~2019-10-11 | XMS | Encounter Summary ---
Demographics + + + | Address | [address] | | | [place] [address] | + + + | Home Phone [...] [place], [place] | | | | | [address] | | + + + + + Care Team Providers + +------+ + | Care Numerical Control Lathe Operator Name | Role | Phone | + +------+ + PCP | Unavailable | + +------+ + Encounter Details +--------+ + + + + | Date | Type | Department | Care Team | Description | +--------+ + + + + | 03/26/ | Hospital | [facility] | | | | 2001 | Encounter | MED CTR LABORATORY | | | | | | [address] | | | | | | [place] | | | | | | [address] | | | | | | [phone] | | | +--------+ + + + [...] | | | | | [place] | | | | | | [address] | | | | | | | | +--------+---------+ + + + documented as of this encounter Visit Diagnoses Not on filedocumented in this encounter"
--- OUTSIDE RECORDS SUMMARY | ~2019-10-11 | XMS | Encounter Summary ---
Demographics + + + | Address | [address] | | | [place] [address] | + + + | Home Phone [...] [place], [place] | | | | | [address] | | + + + + + Care Team Providers + +------+ + | Care X Ray Nurse Name | Role | Phone | + +------+ + PCP | Unavailable | + +------+ + Encounter Details +--------+ + + + + | Date | Type | Department | Care Team | Description | +--------+ + + + + | 01/06/ | Hospital | [facility] | | | | 1992 | Encounter | MED CTR LABORATORY | | | | | | [address] | | | | | | [place] | | | | | | [address] | | | | | | [phone] | | | +--------+ + + + [...] | | | | | [place] | | | | | | [address] | | | | | | | | +--------+---------+ + + + documented as of this encounter Visit Diagnoses Not on filedocumented in this encounter"
--- OUTSIDE RECORDS SUMMARY | ~2019-10-11 | XMS | Encounter Summary ---
Demographics + + + | Address | [address] | | | [place] [address] | + + + | Home Phone [...] [place] | | | | | [address] | | + + + + + [...] [place] | | | | | | [address] | | | | | | [phone] | | | +--------+ + + + [...] [place] | | | | | | [address] | | | | | | | | +--------+---------+ + + + documented as of this encounter Visit Diagnoses Not on filedocumented in this encounter"
--- OUTSIDE RECORDS SUMMARY | ~2019-10-11 | XMS | Encounter Summary ---
Demographics + + + | Address | [address] | | | [place] [address] | + + + | Home Phone [...] [place] | | | | | [address] | | + + + + + Care Team Providers + +------+ + | Care Delivery Crew Member Name | Role | Phone | + +------+ + | Natalee Andersen NP | PCP | | + +------+ + Encounter Details +--------+ + + + + | Date | Type | Department | Care Team | Description | +--------+ + + + + | 07/06/ | Hospital | [facility] | Latricia Feliciano | | | 2014 | Encounter | MED CTR ACUTE | D, PT [address] | | | | | PHYSICAL THERAPY | NEFTALIE [place] | | | | | [address] | [address] | | | | | [place] [address] | | | | | | [phone] | | | +--------+ + + + [...] + + + +---------+ + + | [place]ell[place]-3 Fatty | Take 1,000 mg by | [...] | | | | | [place] | | | | | | [address] | | | | | | | | +--------+---------+ + + + documented as of this encounter Visit Diagnoses Not on filedocumented in this encounter"
--- OUTSIDE RECORDS SUMMARY | ~2019-10-11 | XMS | Encounter Summary ---
Demographics + + + | Address | [address] | | | [place] [address] | + + + | Home Phone [...] [place] | | | | | [address] | | + + + + + Care Team Providers + +------+ + | Care Simulation Specialist Name | Role | Phone | [...] [address] | [address] [place], [place] | fusion | | | | [place], [place] | [address] | | | | | [address] | | | | | | [phone] | | | +--------+ + + + [...] [place] | | | | | | [address] | | | | | | | | +--------+---------+ + + + documented as of this encounter Visit Diagnoses + + | Diagnosis | + + | Lumbago - Primary | + + | S/P lumbar fusion Arthrodesis status | + + documented in this encounter"
--- OUTSIDE RECORDS SUMMARY | ~2019-10-11 | XMS | Encounter Summary ---
Demographics + + + | Address | [address] | | | [place] [address] | + + + | Home Phone [...] [place] | | | | | [address] | | + + + + + Care Team Providers + +------+ + | Care Bracelet Former Name | Role | Phone | + [...] + | 07/30/ | Telephone | [facility] | Ashley Chávez | Talia (Patient | | 2019 | | CARDIOLOGY GENESIS Abad, Poultry Husbandry Worker | mariela ) | | | | [address] | | | | | | [place], [place] | | | | | | [address] | | | | | | [phone] | | | +--------+ + + + [...] [place] | | | | | | [address] | | | | | | | | +--------+---------+ + + + documented as of this encounter Visit Diagnoses Not on filedocumented in this encounter"
--- OUTSIDE RECORDS SUMMARY | ~2019-10-11 | XMS | Encounter Summary ---
Demographics + + + | Address | [address] | | | [place] [address] | + + + | Home Phone [...] [place] | | | | | [address] | | + + + + + Care Team Providers + +------+ + | Care Support Technician Name | Role | Phone | [...] + + | 06/28/ | Telephone | [facility] | Ashley Chávez | Talia (Patient | | 2019 | | CARDIOLOGY GENESIS Abad, Senior Systems Developer | called to cancel her | | | | [address] | | appointment) | | | | [place] | | | | | | [address] | | | | | | [phone] | | | +--------+ + + + [...] [place] | | | | | | [address] | | | | | | | | +--------+---------+ + + + documented as of this encounter Visit Diagnoses Not on filedocumented in this encounter"
--- OUTSIDE RECORDS SUMMARY | ~2019-10-11 | XMS | Encounter Summary ---
Demographics + + + | Address | [address] | | | [place] [address] | + + + | Home Phone [...] [place] | | | | | [address] | | + + + + + Care Team Providers + +------+ + | Care Clothing Pattern Preparer Name | Role | Phone | [...] | | | | | Procedures | WAREHOUSE SHIPPING RECEIVING CLERK [address] | [address] | | | | | [place] OFFICE | | [address] | | | | | CONSULTATION | [address] | [place] | | | | | NEW/ESTAB | [facility], | [address] Phone: | | | | | PATIENT [address] | [place] [address] | [phone] | | | | | MIN | Phone: | Fax: | | | | | | [phone] | [phone] | | | | | | Fax: | | | | | | | [phone] | | +--------+--------+ + + + + Encounter Details +--------+---------+ + + + | Date | Type | Department | Care Team | Description | +--------+---------+ + + + | 05/02/ | Office | [facility] | Frandy Teresa, | Spondylolisthesis of | | 2013 | Visit | NEUROSURGERY [address] | DO [address] | lumbar region | | | | [address] | [address] [place], [place] | (Primary Dx); Lumbar | | | | [place], [place] | [id number] | stenosis; Lumbar | | | | [address] | | radicular pain; | | | | [phone] | | Lumbago | +--------+---------+ + + [...] [facility] [place] [address] [place] [address] FAX: NEUROSURGERY HISTORY AND PHYSICAL EXAMINATION CHIEF [...] Take 15 mg by mouth nightl y. [place]-3 Fatty Acids (FISH OIL CONCENTRATE) 1000 MG [...] has no apparent deficits with short or lobsterman memory. CRANIAL NERVES: II: Acuity is intact. [...] Intrinsics 5 5 Ulnar Intrinsics 5 5 Edge Stainer Machine Strength 5 5 Hip Flexion 5 4* [...] | | | | | [place] | | | | | | [address] | | | | | | | [...]
--- OUTSIDE RECORDS SUMMARY | ~2019-10-11 | XMS | Encounter Summary ---
Demographics + + + | Address | [address] | | | [place] [address] | + + + | Home Phone [...] [place], [place] | | | | | [address] | | + + + + + Care Team Providers + +------+ + | Care Poultry Hanger Name | Role | Phone | + +------+ + PCP | Unavailable | + +------+ + Encounter Details +--------+ + + + + | Date | Type | Department | Care Team | Description | +--------+ + + + + | 01/26/ | Hospital | [facility] | Dale, Heath E A, | | | 2012 | Encounter | MED CTR XRAY [address] | MD [address] | | | | | [place] | [place] | | | | | [place] [address] | [address] | | | | | [phone] | | | +--------+ + + + [...] [place] | | | | | | [address] | | | | | | | [...] - [facility] | [facility] | | [address] | [facility] | | BILATERAL KNEES, THREE VIEWS: [...] Transcribed | | | Date/Time: 01/27/2012 17:18 Sow Manager: | | | <Electronically Signed by Willie Perry MD> 01/27/12 5604 | | + + + + + | Procedure Note | + + | Juan, Rad Conversion - 11/30/2013 5:03 PM [facility] | | Diagnostic Imaging Department [address] [place] [address] | | BILATERAL KNEES, THREE VIEWS: 01/27/2012 [...] 17:12 | |Transcribed Date/Time: 01/27/2012 17:18 | |Sow Manager: | |<Electronically Signed by Willie Perry MD> 01/27/12 785 | + + + +---------+ + + [...]
--- OUTSIDE RECORDS SUMMARY | ~2019-10-11 | XMS | Encounter Summary ---
Demographics + + + | Address | [address] | | | [place] [address] | + + + | Home Phone | | + + + | Preferred Language | Unknown | + + + | Marital Status | Single | + + + | Congregational Affiliation | Unknown | + + + [...] [place] | | | | | [address] | | + + + + + Care Team Providers + +------+ + | Care Filler Shredding Machine Loader Name | Role | Phone | [...] Rd | | | | | | [place], [place] | | | | | | [address] | | | +--------+ + + + [...]
--- OUTSIDE RECORDS SUMMARY | ~2019-10-11 | XMS | Encounter Summary ---
Demographics + + + | Address | [address] | | | [place] [address] | + + + | Home Phone [...] [place] | | | | | [address] | | + + + + + Care Team Providers + +------+ + | Care Electrician Third Name | Role | Phone | + [...] | | | spondylolist | | [place] | | | | | hesis | | [place], | | | | | Spinal | | [place] [address] | | | | | stenosis, | | Phone: | | | | | lumbar | | [phone] | | | | | region, | | Fax: | | | | | without | | [phone] | | | | | neurogenic | [...] | | | | | | | [place] | | | | | | [...] | | | | | | [place] | | | | | | | [...] | | | | | | SEG [place] | | | | | | | [...] + + | 07/02/ | Hospital | [facility] | Frandy Teresa, | Spinal stenosis, | | 2013 | Encounter | MED CTR XRAY [address] | DO [address] | lumbar region, | | | | [place] | [address], [place] | without neurogenic | | | | [place] [address] | [address] | claudication | | | | [phone] | | (Primary Dx) | +--------+ + [...] + + + +---------+ + + | Fowler-3 Fatty | Take 1,000 mg by | [...] [place] | | | | | | [address] | | | | | | | [...]
--- OUTSIDE RECORDS SUMMARY | ~2019-10-11 | XMS | Encounter Summary ---
Demographics + + + | Address | [address] | | | [place] [address] | + + + | Home Phone [...] [place] | | | | | [address] | | + + + + + Care Team Providers + +------+ + | Care Polymerization Helper Name | Role | Phone | [...] + + | 08/15/ | Documentati | [facility] | Katharine Moncada, | Other (urgent | | 2019 | on | CARDIOLOGY [place] | Technologist | report) | | | | [address] | | | | | | [place] | | | | | | [address] | | | | | | [phone] | | | +--------+ + + + [...] [place] | | | | | | [address] | | | | | | | | +--------+---------+ + + + documented as of this encounter Visit Diagnoses Not on filedocumented in this encounter"
--- OUTSIDE RECORDS SUMMARY | ~2019-10-11 | XMS | Encounter Summary ---
Demographics + + + | Address | [address] | | | [place] [address] | + + + | Home Phone [...] [place] | | | | | [address] | | + + + + + Care Team Providers + +------+ + | Care Concrete Plant Laborer Name | Role | Phone | [...] + | 03/07/ | Telephone | [facility] | Katharine Cardona PA-C | Results | | 2014 | | [facility] | [address] | | | | | [address] | [place] [address] | | | | | [place], [place] | [phone] | | | | | [address] | | | | | | [phone] | | | +--------+ + + + [...] 04/10/ | Office | Cardiology | Desiree Petesron DO | | | 2019 | Visit | | [address] | | | | | | [place] | | | | | | [address] | | | | | | | | +--------+---------+ + + + documented as of this encounter Visit Diagnoses Not on filedocumented in this encounter"
--- OUTSIDE RECORDS SUMMARY | ~2019-10-11 | XMS | Encounter Summary ---
Demographics + + + | Address | [address] | | | [place] [address] | + + + | Home Phone [...] [place] | | | | | [address] | | + + + + + Care Team Providers + +------+ + | Care Mutual Fund Analyst Name | Role | Phone | [...] | SLEEP DISORDER 401 | [address] | | | | | [address] [place] | [place], [place] | | | | | [place] [address] | [address] | | | | | [phone] | | | +--------+ + + + [...] | | | | | [place] | | | | | | [address] | | | | | | | | +--------+---------+ + + + documented as of this encounter Visit Diagnoses Not on filedocumented in this encounter"
--- OUTSIDE RECORDS SUMMARY | ~2019-10-11 | XMS | Encounter Summary ---
Demographics + + + | Address | [address] | | | [place] [address] | + + + | Home Phone [...] [place] | | | | | [address] | | + + + + + Care Team Providers + +------+ + | Care Design Specialist Name | Role | Phone | + +------+ + | Adriano aPtrick MD | PCP | | + +------+ [...] [place] | | | | | | [address] | | | | | | [phone] | | | +--------+ + + + [...] [place] | | | | | | [address] | | | | | | | | +--------+---------+ + + + documented as of this encounter Visit Diagnoses Not on filedocumented in this encounter"
--- OUTSIDE RECORDS SUMMARY | ~2019-10-11 | XMS | Encounter Summary ---
Demographics + + + | Address | [address] | | | [place] [address] | + + + | Home Phone [...] [place] | | | | | [address] | | + + + + + Care Team Providers + +------+ + | Care Rhic Systems Safety Engineer Name | Role | Phone | [...] + | 07/19/ | Telephone | [facility] | Frandy Teresa, | Appointment | | 2013 | | NEUROSURGERY [address] | DO [address] | | | | | [address] | [address] [place], [place] | | | | | [place], [place] | [address] | | | | | [address] | | | | | | [phone] | | | +--------+ + + + [...] [place] | | | | | | [address] | | | | | | | | +--------+---------+ + + + documented as of this encounter Visit Diagnoses Not on filedocumented in this encounter"
--- OUTSIDE RECORDS SUMMARY | ~2019-10-11 | XMS | Encounter Summary ---
Demographics + + + | Address | [address] | | | [place] [address] | + + + | Home Phone [...] [place] | | | | | [address] | | + + + + + Care Team Providers + +------+ + | Care Tool Design Draftsperson Name | Role | Phone | [...] | [facility] | Katharine Moncada, | Other (urgent | | 2019 | on | CARDIOLOGY [place] | Technologist | report) | | | | [address] | | | | | | [place] | | | | | | [address] | | | | | | [phone] | | | +--------+ + + + [...] [place] | | | | | | [address] | | | | | | | | +--------+---------+ + + + documented as of this encounter Visit Diagnoses Not on filedocumented in this encounter"
--- OUTSIDE RECORDS SUMMARY | ~2019-10-11 | XMS | Encounter Summary ---
Demographics + + + | Address | [address] | | | [place] [address] | + + + | Home Phone [...] [place] | | | | | [address] | | + + + + + Care Team Providers + +------+ + | Care Blunger Name | Role | Phone | + [...] + + | 08/20/ | Documentati | [facility] | Katharine Moncada, | Other (urgent | | 2019 | on | CARDIOLOGY [place] | Technologist | report) | | | | [address] | | | | | | [place] | | | | | | [address] | | | | | | [phone] | | | +--------+ + + + [...] [place] | | | | | | [address] | | | | | | | | +--------+---------+ + + + documented as of this encounter Visit Diagnoses Not on filedocumented in this encounter"
--- OUTSIDE RECORDS SUMMARY | ~2019-10-11 | XMS | Encounter Summary ---
Demographics + + + | Address | [address] | | | [place] [address] | + + + | Home Phone [...] [place] | | | | | [address] | | + + + + + Care Team Providers + +------+ + | Care Project Control Officer Name | Role | Phone | [...] | | | | | | [place], | | | | | | [place] [address] | | | | | | [phone] | | | +--------+ + + + [...] | | + +---------+ + + | [facility] DEPARTMENT OF | | | | | RADIOLOGY | | | | + +---------+ + + documented in this encounter Visit Diagnoses Not on filedocumented in this encounter"
--- OUTSIDE RECORDS SUMMARY | ~2019-10-11 | XMS | Encounter Summary ---
Demographics + + + | Address | [address] | | | [place] [address] | + + + | Home Phone [...] [place], [place] | | | | | [address] | | + + + + + [...] + + | 05/23/ | Hospital | [facility] | | | | 1991 | Encounter | MED CTR XRAY [address] | | | | | | [place] | | | | | | [place] [address] | | | | | | [phone] | | | +--------+ + + + [...] | | | | | [place] | | | | | | [address] | | | | | | | | +--------+---------+ + + + documented as of this encounter Visit Diagnoses Not on filedocumented in this encounter"
--- OUTSIDE RECORDS SUMMARY | ~2019-10-11 | XMS | Encounter Summary ---
Demographics + + + | Address | [address] | | | [place] [address] | + + + | Home Phone [...] [place] | | | | | [address] | | + + + + + Care Team Providers + +------+ + | Care Hatchery Manager Name | Role | Phone [...] + + | 08/13/ | Documentati | [facility] | Katharine Moncada, | Other (urgent | | 2019 | on | CARDIOLOGY [place] | Technologist | report) | | | | [address] | | | | | | [place] | | | | | | [address] | | | | | | [phone] | | | +--------+ + + + [...] [place] | | | | | | [address] | | | | | | | | +--------+---------+ + + + documented as of this encounter Visit Diagnoses Not on filedocumented in this encounter"
--- OUTSIDE RECORDS SUMMARY | ~2019-10-11 | XMS | Encounter Summary ---
Demographics + + + | Address | [address] | | | [place] [address] | + + + | Home Phone [...] [place] | | | | | [address] | | + + + + + Care Team Providers + +------+ + | Care [employer] Planners Name | Role | Phone | + [...] | | | | | pain, | [place], [place] | | | | | | bilateral | [address] | | | | | | Degenerative | Phone: | | | | | | disc | [phone] | | | | | | disease, | Fax: | | | | | | lumbar | [phone] | | | | | | Spinal [...] [address] | [address] [place], [place] | (Primary Dx); Knee | | | | [place] | [address] | pain, bilateral; | | | | [address] | | DEGENERATIVE DISC | | | | [phone] | | DISEASE, LUMBAR | | | [...] | | | | | [address] [place] | | | | | | [address] | | | | | | | [...]
--- OUTSIDE RECORDS SUMMARY | ~2019-10-11 | XMS | Encounter Summary ---
Demographics + + + | Address | [address] | | | [place] [address] | + + + | Home Phone [...] [place], [place] | | | | | [address] | | + + + + + Care Team Providers + +------+ + | Care Spanish Translator Name | Role | Phone | + [...] Location | | | | | | [phone] | | | +--------+ + + + [...] [place] | | | | | | [address] | | | | | | | | +--------+---------+ + + + documented as of this encounter Visit Diagnoses Not on filedocumented in this encounter"
--- OUTSIDE RECORDS SUMMARY | ~2019-10-11 | XMS | Encounter Summary ---
Demographics + + + | Address | [address] | | | [place] [address] | + + + | Home Phone [...] [place] | | | | | [address] | | + + + + + Care Team Providers + +------+ + | Care Mechanical Handyman Name | Role | Phone | + [...] + + | 08/13/ | Documentati | [facility] | Katharine Moncada, | Other (urgent | | 2019 | on | CARDIOLOGY [place] | Technologist | report) | | | | [address] | | | | | | [place] | | | | | | [address] | | | | | | [phone] | | | +--------+ + + + [...] [place] | | | | | | [address] | | | | | | | | +--------+---------+ + + + documented as of this encounter Visit Diagnoses Not on filedocumented in this encounter"
--- OUTSIDE RECORDS SUMMARY | ~2019-10-11 | XMS | Encounter Summary ---
Demographics + + + | Address | [address] | | | [place] [address] | + + + | Home Phone [...] [place] | | | | | [address] | | + + + + + Care Team Providers + +------+ + | Care Pre School Teacher Name | Role | Phone [...] | 07/10/ | Telephone | [facility] | Frandy Teresa, | Imaging Only (1 year | | 2014 | | NEUROSURGERY [address] | DO [address] | x-ray ) | | | | [address] | [address] [place], [place] | | | | | [place], [place] | [id number] | | | | | [address] | | | | | | [phone] | | | +--------+ + + + [...] [place] | | | | | | [address] | | | | | | | | +--------+---------+ + + + documented as of this encounter Visit Diagnoses Not on filedocumented in this encounter"
--- OUTSIDE RECORDS SUMMARY | ~2019-10-11 | XMS | Encounter Summary ---
Demographics + + + | Address | [address] | | | [place] [address] | + + + | Home Phone [...] [place] | | | | | [address] | | + + + + + Care Team Providers + +------+ + | Care Change Number Operator Name | Role | Phone | [...] | | | | Street [place] | [place] [address] | | | | | [place] [address] | [phone] | | | | | [phone] | | | +--------+--------+ + + + [...] [place] | | | | | | [address] | | | | | | | | +--------+---------+ + + + documented as of this encounter Visit Diagnoses + + | Diagnosis | + + | Essential hypertension - Primary Unspecified essential hypertension | + + documented in this encounter"
--- OUTSIDE RECORDS SUMMARY | ~2019-10-11 | XMS | Encounter Summary ---
Demographics + + + | Address | [address] | | | [place] [address] | + + + | Home Phone [...] [place] | | | | | [address] | | + + + + + Care Team Providers + +------+ + | Care Envelope Fold Operator Name | Role | Phone | [...] | | | | | pain, | [place], [place] | | | | | | bilateral | [address] | | | | | | Degenerative | Phone: | | | | | | disc | [phone] | | | | | | disease, | Fax: | | | | | | lumbar | [phone] | | | | | | Spinal [...] [address] | [address] [place], [place] | (Primary Dx); Knee | | | | [place] | [address] | pain, bilateral; | | | | [address] | | DEGENERATIVE DISC | | | | [phone] | | DISEASE, LUMBAR | | | [...] | | | | | [place] | | | | | | [address] | | | | | | | [...]
--- OUTSIDE RECORDS SUMMARY | ~2019-10-11 | XMS | Encounter Summary ---
Demographics + + + | Address | [address] | | | [place] [address] | + + + | Home Phone [...] [place], [place] | | | | | [address] | | + + + + + Care Team Providers + +------+ + | Care Systems Programmer Name | Role | Phone | + +------+ + PCP | Unavailable | + +------+ + Encounter Details +--------+ + + + + | Date | Type | Department | Care Team | Description | +--------+ + + + + | 04/16/ | [facility] | [facility] | Deon Gonzales | | | 2005 | Encounter | MED CTR SLEEP | MD [place] [address] | | | | | [place] [address] | [place] | | | | | [place], [place] | [place] [address] | | | | | [address] | [phone] | | | | | [phone] | | | +--------+ + + + [...] [place] | | | | | | [address] | | | | | | | | +--------+---------+ + + + documented as of this encounter Visit Diagnoses Not on filedocumented in this encounter"
--- OUTSIDE RECORDS SUMMARY | ~2019-10-11 | XMS | Encounter Summary ---
Demographics + + + | Address | [address] | | | [place] [address] | + + + | Home Phone [...] + | rAaceli Sibley | ECON | [place], [place] | | | | | [address] | | + + + + + Care Team Providers + +------+ + | Care Equipment Hire Manager Name | Role | Phone | + +------+ + PCP | Unavailable | + +------+ + Encounter Details +--------+ + + + + | Date | Type | Department | Care Team | Description | +--------+ + + + + | 10/29/ | Hospital | [facility] | | | | 1994 | Encounter | MED CTR LABORATORY | | | | | | [address] | | | | | | [place] | | | | | | [address] | | | | | | [phone] | | | +--------+ + + + [...] | | | | | [place] | | | | | | [address] | | | | | | | | +--------+---------+ + + + documented as of this encounter Visit Diagnoses Not on filedocumented in this encounter"
--- OUTSIDE RECORDS SUMMARY | ~2019-10-11 | XMS | Encounter Summary ---
Demographics + + + | Address | [address] | | | [place] [address] | + + + | Home Phone [...] | [facility] | | | [...] [place] | | | | | [address] | | + + + + + Care Team Providers + +------+ + | Care Dealer Sales Manager Name | Role | Phone [...] [place] | | | | | | [address] | | | | | | [phone] | | | +--------+ + + + [...] [place] | | | | | | [address] | | | | | | | | +--------+---------+ + + + documented as of this encounter Visit Diagnoses Not on filedocumented in this encounter"
--- OUTSIDE RECORDS SUMMARY | ~2019-10-11 | XMS | Encounter Summary ---
Demographics + + + | Address | [address] | | | [place] [address] | + + + | Home Phone [...] [place] | | | | | [address] | | + + + + + Care Team Providers + +------+ + | Care Gardening Instructor Name | Role | Phone | [...] 2019 | | CARDIOLOGY [place] | Pollo, Patient Financial Rep | to take monitor | | | | [address] | | off. ) | | | | [address] | | | | | | [place] | | | | | | [address] | | | | | | [phone] | | | +--------+ + + + [...] [place] | | | | | | [address] | | | | | | | | +--------+---------+ + + + documented as of this encounter Visit Diagnoses Not on filedocumented in this encounter"
--- OUTSIDE RECORDS SUMMARY | ~2019-10-11 | XMS | Encounter Summary ---
Demographics + + + | Address | [address] | | | [place] [address] | + + + | Home Phone [...] [place] | | | | | [address] | | + + + + + Care Team Providers + +------+ + | Care Talend Etl Developer Name | Role | Phone | + +------+ + | Natalee Andersen NP | PCP | | + +------+ + Encounter Details +--------+ + + + + | Date | Type | Department | Care Team | Description | +--------+ + + + + | 07/25/ | Hospital | [facility] | Frandy Teresa, | Status post lumbar | | 2014 | Encounter | MED CTR XRAY [address] | DO [address] | spinal fusion | | | | [place] | [address] [place], [place] | | | | | [place] [address] | [address] | | | | | [phone] | | | +--------+ + + + [...] + + + +---------+ + + | Whigham-3 Fatty | Take 1,000 mg by | [...] [place] | | | | | | [address] | | | | | | | [...] + | MISCELLANEOUS LAB | | | [phone] | + +---------+ + + | MISCELANIOUS LAB | | | [phone] | + +---------+ + + documented in this encounter Visit Diagnoses + + | Diagnosis | + + | Status post lumbar spinal fusion Arthrodesis status | + + documented in this encounter"
--- OUTSIDE RECORDS SUMMARY | ~2019-10-11 | XMS | Encounter Summary ---
Demographics + + + | Address | [address] | | | [place] [address] | + + + | Home Phone [...] [place] | | | | | [address] | | + + + + + Care Team Providers + +------+ + | Care Job Lithographer Name | Role | Phone | + +------+ + | Thierry Fry MD | PCP | | + +------+ + Encounter Details +--------+ + + + + | Date | Type | Department | Care Team | Description | +--------+ + + + + | 03/06/ | Hospital | [facility] | Katharine Cardona PA-C | Essential | | 2015 | Encounter | MED CTR LABORATORY | [address] | hypertension | | | | [address] [place] | [place] [address] | | | | | [place], [place] | [phone] | | | | | [address] | | | | | | [phone] | | | +--------+ + + + [...] 0 | | | | (VITAMIN D-3) [address] | mouth Once a week. | | [...] + + + +---------+ + + | [place]-3 Fatty | Take 1,000 mg by | 60 each | 5 | 03/09/20 | | | Acids (FISH OIL | mouth 2 times daily. | | | 15 | 9 | | CONCENTRATE) 1000 MG | | | | | | | CAPS | | | | | | + + + +---------+ + + | [place]-3 Fatty | Take 1,000 mg by | [...] | | | | | [place] | | | | | | [address] | | | | | | | [...] mL/min/1.73m2 | [facility] | | | [facility] | RATE,ESTIMATED | | MEDICAL | | | | mL/min/1.52w1Bhpz than | | CENTER - | | [...] | 9.6 | 8.3 - 10.5 | [facility] | | | | | mg/dL | [facility] | | | | | | MEDICAL | | | | | | CENTER - | | | | | | LABORATORY | | + + + + + + | Albumin | 4.1 | 3.2 - 5.0 g/dL | [facility] | | | | | | [facility] | | | | | | MEDICAL [...] [address] | [place] | [phone] | | [facility] | | [address] | | | - LABORATORY | | | | + + + + + documented in this encounter Visit Diagnoses + + | Diagnosis | + + | Essential hypertension Unspecified essential hypertension | + + documented in this encounter"
--- OUTSIDE RECORDS SUMMARY | ~2019-10-11 | XMS | Encounter Summary ---
Demographics + + + | Address | [address] | | | [place] [address] | + + + | Home Phone [...] [place] | | | | | [address] | | + + + + + Care Team Providers + +------+ + | Care Adjunct Writing Instructor Name | Role | Phone | [...] | | | | | | | [address] | | | | | | | Phone: | | | | | | | [phone] | | | | | | | Fax: | | | | | | | [phone] | | +--------+ + + + + + Reason for Visit + + + | Reason | Comments | + + + | Follow-up | 3 mo po | + + + Encounter Details +--------+---------+ + + + | Date | Type | Department | Care Team | Description | +--------+---------+ + + + | 09/27/ | [facility] | [facility] | Frandy Teresa, | Lumbar spondylosis | | 2013 | Visit | NEUROSURGERY [address] | DO [address] | (Primary Dx); S/P | | | | [address] | [address] [place], [place] | lumbar fusion | | | | [place], [place] | [address] | | | | | [address] | | | | | | [phone] | | | +--------+---------+ + + + [...] m the original. Frandy Teresa DO [address] [place] [address] FAX: NEUROSURGERY FOLLOW-UP CHIEF COMPLAINT: Chief Complaint [...] Surgeon: Frandy castellanos DO; Location: [facility] MAIN OR CURRENT MEDICATIONS: Current Outpatient [...] Take 15 mg by mouth nightl y. [place]-3 Fatty Acids (FISH OIL CONCENTRATE) 1000 MG [...] | | | | | [place], [place] | | | | | | [address] | | | | | | | [...]
--- OUTSIDE RECORDS SUMMARY | ~2019-10-11 | XMS | Encounter Summary ---
Demographics + + + | Address | [address] | | | [place] [address] | + + + | Home Phone [...] [place], [place] | | | | | [address] | | + + + + + Care Team Providers + +------+ + | Care Insurance Counsel Name | Role | Phone | + +------+ + PCP | Unavailable | + +------+ + Encounter Details +--------+ + + + + | Date | Type | Department | Care Team | Description | +--------+ + + + + | 06/17/ | Hospital | [facility] | | | | 1991 - | Encounter | MED CTR GENERIC PSY | | | | | | CONV DEPT [address] | | | | 06/18/ | | [address] [place], | | | | 1991 | | [place] [address] | | | | | | [phone] | | | +--------+ + + + [...] [place] | | | | | | [address] | | | | | | | | +--------+---------+ + + + documented as of this encounter Visit Diagnoses Not on filedocumented in this encounter"
--- OUTSIDE RECORDS SUMMARY | ~2019-10-11 | XMS | Clinical Summary ---
Demographics + + + | Address | [address] | | | [place] [address] | + + + | Home Phone [...] | [facility] (Historical as of | | | 06-09-19) | + + + | Organization | [facility] (Historical as of | | | 06-09-19) [...] Providers + +------+ + | Care Paint Spraying Machine Operator Helper Name | Role | [...] | | Activ | | (VITAMIN D3) [address] | a week. | | | | [...] + | T2DM (type 2 diabetes mellitus) ([facility]) | 04/13/2013 | + + [...] +------+-------+ + | MEDICARE | MEDICA | [id number] | | | [address] | | | RE | | | | [place] [phone] | | | IP-OP | | | [...] Self | [birth year] | Home: | [address] | | al/Fam | | 1955 | [phone] | [address] [place] | | | [place] | | | [phone] | [address] | + +--------+ +--------+ + +
--- OUTSIDE RECORDS SUMMARY | ~2019-10-11 | XMS | Encounter Summary ---
Demographics + + + | Address | [address] | | | [place] [address] | + + + | Home Phone [...] [place] | | | | | [address] | | + + + + + Care Team Providers + +------+ + | Care Regrinder Operator Name | Role | Phone | + +------+ + | Natalee Andersen NP | PCP | | + +------+ + Encounter Details +--------+ + + + + | Date | Type | Department | Care Team | Description | +--------+ + + + + | 07/25/ | Hospital | [facility] | Frandy Teresa, | Status post lumbar | | 2014 | Encounter | MED CTR XRAY [address] | DO [address] | spinal fusion | | | | [place] | [address] [place], [place] | | | | | [place] [address] | [address] | | | | | [phone] | | | +--------+ + + + [...] + + + +---------+ + + | [place]-3 Fatty | Take 1,000 mg by | [...] [place] | | | | | | [address] | | | | | | | [...] + | MISCELLANEOUS LAB | | | [phone] | + +---------+ + + | MISCELANIOUS LAB | | | [phone] | + +---------+ + + documented in this encounter Visit Diagnoses + + | Diagnosis | + + | Status post lumbar spinal fusion Arthrodesis status | + + documented in this encounter"
--- OUTSIDE RECORDS SUMMARY | ~2019-10-11 | XMS | Encounter Summary ---
Demographics + + + | Address | [address] | | | [place] [address] | + + + | Home Phone [...] [place] | | | | | [address] | | + + + + + Care Team Providers + +------+ + | Care It Infrastructure Engineer Name | Role | Phone | [...] + + | 08/09/ | Clinical | [facility] | Desiree Peterson DO | Syncope, unspecified | | 2019 | Support | CARDIOLOGY [place] | [address] | syncope type | | | | [address] | [place], [place] | | | | | [place] [address] | [address] | | | | | [place] | | | | | | [address] | Dora De La Torre | | | | | [phone] | CAROLINE Mendez [address] | | | | | | [address] | | | | | | [place] [address] | | | | | | [phone] | | | | | | | [...] [place] | | | | | | [address] | | | | | | | | +--------+---------+ + + + documented as of this encounter Visit Diagnoses + + | Diagnosis | + + | Syncope, unspecified syncope type | + + documented in this encounter"
--- OUTSIDE RECORDS SUMMARY | ~2019-10-11 | XMS | Encounter Summary ---
Demographics + + + | Address | [address] | | | [place] [address] | + + + | Home Phone [...] [place] | | | | | [address] | | + + + + + Care Team Providers + +------+ + | Care Vegetable Scullion Name | Role | Phone | + [...] | 2019 | | CARDIOLOGY [place] Abad, Advanced Nursing Professor | questions about | | | | [address] | | monitor. ) | | | | [place] | | | | | | [address] | | | | | | [phone] | | | +--------+ + + + [...] [place] | | | | | | [address] | | | | | | | | +--------+---------+ + + + documented as of this encounter Visit Diagnoses Not on filedocumented in this encounter"
--- OUTSIDE RECORDS SUMMARY | ~2019-10-11 | XMS | Encounter Summary ---
Demographics + + + | Address | [address] | | | [place] [address] | + + + | Home Phone [...] [place] | | | | | [address] | | + + + + + Care Team Providers + +------+ + | Care Wind Site Manager Name | Role | Phone | [...] | | | | | | | [address] | | | | | | | Phone: | | | | | | | [phone] | | | | | | | Fax: | | | | | | | [phone] | | +--------+--------+ + + + + Encounter Details +--------+---------+ + + + | Date | Type | Department | Care Team | Description | +--------+---------+ + + + | 02/27/ | Office | [facility] | Baudilio Newman | Neuropathy (Primary | | 2015 | Visit | NEUROLOGY LAURIE | MD Pollo Need updated | Dx); Sleep apnea; | | | | [address], | address | Stroke (HCC); | | | | [address] [place] | | Thyroid disease | | | | [place] [address] | | | | | | [phone] | | | +--------+---------+ + + + [...] supply of blood, brain tissue quickly dies. [id number] The [email or web address]. [address] [place] [address], [place] [address]. All righ ts reserved. This information is not intended as a substitute for professional medical care. Always follow your healthcare professional's instructions. documented in this encounter Progress Notes Baudilio Newman MD - 02/27/2015 10:31 AM PDTFormatting of this note might be differen t from the original. Baudilio Newman MD [address] [facility] [place], [address] [place] [address] Neurology Outpatient New Patient Note Referring Provider: [...] history. Notes from her recent hospitalization at [place] were reviewed in detail. Ms. Arndt started feeling off in the evening of 02/01. She felt dizzy and laid down to slee p. Upon waking, she felt her right side was numb. She tried to get up to go to the bathroom and realized she was weak as well on the right. She was taken to [facility] where she was diagnosed with [...] systol ically. She was reevaluated in the [facility] ED for one such event and [...] hospitalization . This specimen was characterized at [facility], but the report is not currently available for [facility]. Unfortunately, Ms. Arndt notes that her [...] Laterality: N/A; Surgeon: Frandy castellanos DO; Location: [facility] MAIN OR Current Medications: Outpatient Medications [...] tablet Take 15 mg by mouth nightly. [place]-3 Fatty Acids (FISH OIL CONCENTRATE) 1000 MG [...] BMI 46.04 kg /m2 Neck Circumference: 14" [place] Sleepiness Scale: 2 General: well developed and [...] Romberg test negative Radiographic Review: CTA from [place] reviewed on iSITE. No significant stenoses seen [...] No results found for this basename: hba1c, euu2aix, ldl, ldldirect, ldlext, dldlex Lab Results Component [...] | | | | | [place], [place] | | | | | | [id number] | | | | | | | [...]
--- OUTSIDE RECORDS SUMMARY | ~2019-10-11 | XMS | Encounter Summary ---
Demographics + + + | Address | [address] | | | [place] [address] | + + + | Home Phone [...] [place] | | | | | [address] | | + + + + + Care Team Providers + +------+ + | Care Building Surveyor Name | Role | Phone | [...] + + | 08/24/ | Documentati | [facility] | Katharine Moncada, | Other (urgent | | 2019 | on | CARDIOLOGY [place] | Technologist | report) | | | | [address] | | | | | | [place] | | | | | | [address] | | | | | | [phone] | | | +--------+ + + + [...] [place] | | | | | | [address] | | | | | | | | +--------+---------+ + + + documented as of this encounter Visit Diagnoses Not on filedocumented in this encounter"
--- OUTSIDE RECORDS SUMMARY | ~2019-10-11 | XMS | Encounter Summary ---
Demographics + + + | Address | [address] | | | [place] [address] | + + + | Home Phone [...] [place] | | | | | [address] | | + + + + + Care Team Providers + +------+ + | Care Pre Parole Counseling Aide Name | Role | Phone | [...] + | 08/26/ | Refill | [facility] | Frandy Teresa, | Medication Refill | | 2013 | | NEUROSURGERY [address] | DO [address] | | | | | [address] | [address] [place], [place] | | | | | [place], [place] | [address] | | | | | [address] | | | | | | [phone] | | | +--------+--------+ + + + [...] | | | | | [place] | | | | | | [address] | | | | | | | | +--------+---------+ + + + documented as of this encounter Visit Diagnoses Not on filedocumented in this encounter"
--- OUTSIDE RECORDS SUMMARY | ~2019-10-11 | XMS | Encounter Summary ---
Demographics + + + | Address | [address] | | | [place] [address] | + + + | Home Phone [...] [place] | | | | | [address] | | + + + + + Care Team Providers + +------+ + | Care Maintainer Operator Name | Role | Phone | + +------+ + | Natalee Andersen NP | PCP | | + +------+ + Encounter Details +--------+ + + + + | Date | Type | Department | Care Team | Description | +--------+ + + + + | 09/27/ | Hospital | [facility] | Frandy Teresa, | Lumbar spondylosis; | | 2013 | Encounter | MED CTR XRAY [address] | DO [address] | S/P lumbar fusion | | | | [place] | [address] [place], [place] | | | | | [place] [address] | [address] | | | | | [phone] | | | +--------+ + + + [...] + + + +---------+ + + | [place]-3 Fatty | Take 1,000 mg by | [...] [place] | | | | | | [address] | | | | | | | [...] + | MISCELLANEOUS LAB | | | [phone] | + +---------+ + + | MISCELANIOUS LAB | | | [phone] | + +---------+ + + documented in this encounter Visit Diagnoses + + | Diagnosis | + + | Lumbar spondylosis Lumbosacral spondylosis without myelopathy | + + | S/P lumbar fusion Arthrodesis status | + + documented in this encounter"
--- OUTSIDE RECORDS SUMMARY | ~2019-10-11 | XMS | Encounter Summary ---
Demographics + + + | Address | [address] | | | [place] [address] | + + + | Home Phone [...] [place] | | | | | [address] | | + + + + + Care Team Providers + +------+ + | Care Informix Developer Name | Role | Phone | [...] + | 08/14/ | Documentati | [facility] | Katharine Moncada, | Other (urgent | | 2019 | on | CARDIOLOGY [place] | Technologist | report) | | | | [address] | | | | | | [place] | | | | | | [address] | | | | | | [phone] | | | +--------+ + + + [...] [place] | | | | | | [address] | | | | | | | | +--------+---------+ + + + documented as of this encounter Visit Diagnoses Not on filedocumented in this encounter"
--- OUTSIDE RECORDS SUMMARY | ~2019-10-11 | XMS | Encounter Summary ---
Demographics + + + | Address | [address] | | | [place] [address] | + + + | Home Phone [...] [place] | | | | | [address] | | + + + + + Care Team Providers + +------+ + | Care Occupational Therapist Assistants Name | Role | Phone | + [...] | Transcriptions | + + | Interface, Interactive Media Marketing Specialist In - 11/04/2006 3:03 AM PST | | [address] | | [place], [place] [address] [facility] | | ClinicsOPERATION RECORDMed Rec No.: [...] skin retractor was put in place. The [place] elevators wereused to separate the | | [...]
--- OUTSIDE RECORDS SUMMARY | ~2019-10-11 | XMS | Encounter Summary ---
Demographics + + + | Address | [address] | | | [place] [address] | + + + | Home Phone [...] [place], [place] | | | | | [address] | | + + + + + Care Team Providers + +------+ + | Care Car Electronics Installer Name | Role | Phone | + +------+ + PCP | Unavailable | + +------+ + Encounter Details +--------+ + + + + | Date | Type | Department | Care Team | Description | +--------+ + + + + | 02/16/ | Hospital | [facility] | | | | 1994 | Encounter | MED CTR LABORATORY | | | | | | [address] | | | | | | [place] | | | | | | [address] | | | | | | [phone] | | | +--------+ + + + [...] | | | | | [place] | | | | | | [address] | | | | | | | | +--------+---------+ + + + documented as of this encounter Visit Diagnoses Not on filedocumented in this encounter"
--- OUTSIDE RECORDS SUMMARY | ~2019-10-11 | XMS | Encounter Summary ---
Demographics + + + | Address | [address] | | | [place] [address] | + + + | Home Phone [...] [place], [place] | | | | | [address] | | + + + + + Care Team Providers + +------+ + | Care Steamtable Worker Name | Role | Phone | + +------+ + PCP | Unavailable | + +------+ + Encounter Details +--------+ + + + + | Date | Type | Department | Care Team | Description | +--------+ + + + + | 09/24/ | Hospital | [facility] | | | | 1993 | Encounter | MED CTR LABORATORY | | | | | | [address] | | | | | | [place] | | | | | | [address] | | | | | | [phone] | | | +--------+ + + + [...] | | | | [place] | | | | | | [address] | | | | | | | | +--------+---------+ + + + documented as of this encounter Visit Diagnoses Not on filedocumented in this encounter"
--- OUTSIDE RECORDS SUMMARY | ~2019-10-11 | XMS | Clinical Summary ---
Demographics + + + | Address | [address] [facility] [address] | | | [place] [address] | + + + | Home Phone [...] [place] | | | | | [address] | | + + + + + Care Team Providers + +------+ + | Care Geophysical Laboratory Supervisor Name | Role | Phone | + +------+ + PCP | Unavailable | + +------+ + Source Comments EDWARD is fully live on both [facility] Ambulatory and [facility] InPatient.[facility] Allergies Not on File Medications Not [...] | [employer] | xxxxxxxxxx | 02/22/20 | [phone] | [address] | [facility] | | | RE A & | | 15-Pre | 1 | [address] | re | | | B | | sent | | [place] | | | | | | | | [address] | | + +--------+ +--------+ + +--------+ + +--------+ +--------+ + + | Guarantor Name | Accoun | Relation to | Date | Phone | Billing Address | | | t Type | Patient | of | | | | | | | | | | + +--------+ +--------+ + + | CINDY ARNDT | Person | Self | [birth year] | [address] | | al/Fam | | 1955 | [phone] | [address] [place] | | | [place]onte | | | 5 (Home) | [address] | + +--------+ +--------+ + +"
--- OUTSIDE RECORDS SUMMARY | ~2019-10-11 | XMS | Encounter Summary ---
Demographics + + + | Address | [address] | | | [place] [address] | + + + | Home Phone [...] [place] | | | | | [address] | | + + + + + Care Team Providers + +------+ + | Care Mail Opener Name | Role | Phone | [...] + + | 08/08/ | Telephone | [facility] | Ashley Chávez | Other (Questions | | 2019 | | CARDIOLOGY [place] | Pollo, Feeder Operator Automatic | about coverage. ) | | | | [address] | | | | | | [place] | | | | | | [address] | | | | | | [phone] | | | +--------+ + + + [...] | | | | | [place] | | | | | | [address] | | | | | | | | +--------+---------+ + + + documented as of this encounter Visit Diagnoses Not on filedocumented in this encounter"
--- OUTSIDE RECORDS SUMMARY | ~2019-10-11 | XMS | Encounter Summary ---
Demographics + + + | Address | [address] | | | [place] [address] | + + + | Home Phone [...] [place] | | | | | [address] | | + + + + + Care Team Providers + +------+ + | Care Rotary Cutter Operator Name | Role | Phone [...] [place] | | | | | | [address] | | | | | | [phone] | | | +--------+ + + + [...] [place] | | | | | | [address] | | | | | | | | +--------+---------+ + + + documented as of this encounter Visit Diagnoses Not on filedocumented in this encounter"
--- OUTSIDE RECORDS SUMMARY | ~2019-10-11 | XMS | Encounter Summary ---
Demographics + + + | Address | [address] | | | [place] [address] | + + + | Home Phone [...] [place] | | | | | [address] | | + + + + + Care Team Providers + +------+ + | Care Direct Of Real Estate Name | Role | Phone | + [...] | | [address] | [place], [place] | | | | | [place], [place] | [address] | | | | | [address] | | | | | | [phone] | | | +--------+ + + + [...] | | | | | [place] | | | | | | [address] | | | | | | | [...] 0.83 m/s | | | MV Dec [place]: 2.85 m/s2 MV DecT: 282.89 ms MV E Teodoro: 0.80 | | | m/s MV E/A Ratio: 0.96 E/E' Sept: 12.59 E' Lat: 0.08 m/s | | | E' Sept: 0.06 m/s RAP: 10 mmHg RV S': 0.11 m/s RVSP: | | | 27.96 mmHg TR maxP.96 mmHg TR Vmax: 2.11 m/s | | | Rug Cutter Helper: Authenticated by: Desiree Peterson MD Report Date/Time: | | | -- 18_[id number]_4:31:1 | | + + + + + [...] (A-L): 19.60 | | ml/m2LAAs A2C: 15.44 [id number] A-L A2C: 43.84 mlLAESV MOD A2C: 42.12 mlLALs A2C: | | 4.61 cmLAAs A4C: 14.18 [id number] A-L A4C: 38.73 mlLAESV MOD A4C: 37.04 mlLALs A4C: | | 4.41 cmRAAs: 12.15 [id number] A-L: 28.54 mlRAESV MOD: 28.66 mlRALs: 4.39 | | cmTAPSE: 2.42 cmAV Env.Ti: 293.94 msAV maxP.18 mmHgAV meanP.09 mmHgAV | | Vmax: 1.88 m/Eddie Vmean: 1.25 m/Eddie VTI: 36.84 cmAVA Vmax: 2.06 cm2AVA (VTI): | | 2.24 [id number] Vmax: 0.00 cm2/m2AVAI (VTI): 0.00 cm2/m2LVOT Env.Ti: 299.59 msLVOT | | maxP.52 mmHgLVOT meanP.65 mmHgLVSI Dopp: 38.55 ml/m2LVSV Dopp: 82.89 | | mlLVOT Vmax: 1.27 m/sLVOT Vmean: 0.91 m/sLVOT VTI: 27.27 cmMV A Teodoro: 0.83 m/sMV | | Dec [place]: 2.85 m/s2MV DecT: 282.89 msMV E Teodoro: 0.80 m/sMV E/A Ratio: 0.96E/E' | | Sept: 12.59E' Lat: 0.08 m/sE' Sept: 0.06 m/sRAP: 10 mmHgRV S': 0.11 m/sRVSP: | | 27.96 mmHgTR maxP.96 mmHgTR Vmax: 2.11 m/s Rug Cutter Helper:Authenticated by: | | Desiree Peterson MDReport Date/Time: -- [id number]_4:31:1 IMPRESSION: 1. Overall left | | ventricular [...] A Teodoro: 0.83 m/s | |MV Dec [place]: 2.85 m/s2 | |MV DecT: 282.89 ms | |MV E Teodoro: 0.80 m/s | |MV E/A Ratio: 0.96 | |E/E' Sept: 12.59 | |E' Lat: 0.08 m/s | |E' Sept: 0.06 m/s | |RAP: 10 mmHg | |RV S': 0.11 m/s | |RVSP: 27.96 mmHg | |TR maxP.96 mmHg | |TR Vmax: 2.11 m/s | | | |Rug Cutter Helper: | |Authenticated by: Desiree Peterson MD | |Report Date/Time: -- [id number]_8:31:1 | | | |IMPRESSION: | |1. Overall [...]
--- OUTSIDE RECORDS SUMMARY | ~2019-10-11 | XMS | Encounter Summary ---
Demographics + + + | Address | [address] | | | [place] [address] | + + + | Home Phone [...] [place], [place] | | | | | [address] | | + + + + + Care Team Providers + +------+ + | Care Helmet Coverer Name | Role | Phone | + +------+ + PCP | Unavailable | + +------+ + Encounter Details +--------+ + + + + | Date | Type | Department | Care Team | Description | +--------+ + + + + | 12/27/ | Hospital | [facility] | | | | 1997 - | Encounter | MED CTR GENERIC PSY | | | | | | CONV DEPT [address] | | | | 01/01/ | | [address], | | | | 1997 | | [place] [address] | | | | | | [phone] | | | +--------+ + + + [...] [place] | | | | | | [address] | | | | | | | | +--------+---------+ + + + documented as of this encounter Visit Diagnoses Not on filedocumented in this encounter"
--- OUTSIDE RECORDS SUMMARY | ~2019-10-11 | XMS | Encounter Summary ---
Demographics + + + | Address | [address] | | | [place] [address] | + + + | Home Phone [...] [place] | | | | | [address] | | + + + + + Care Team Providers + +------+ + | Care Rooter Operator Name | Role | Phone | [...] + + | 07/30/ | Telephone | [facility] | Ashley Chávez | Talia (Patient | | 2019 | | CARDIOLOGY [place] Abad, Temperature Regulator Pyrometer | mariela ) | | | | [address] | | | | | | [place], [place] | | | | | | [address] | | | | | | [phone] | | | +--------+ + + + [...] [place] | | | | | | [address] | | | | | | | | +--------+---------+ + + + documented as of this encounter Visit Diagnoses Not on filedocumented in this encounter"
--- OUTSIDE RECORDS SUMMARY | ~2019-10-11 | XMS | Encounter Summary ---
Demographics + + + | Address | [address] | | | [place] [address] | + + + | Home Phone [...] [place], [place] | | | | | [address] | | + + + + + Care Team Providers + +------+ + | Care Government Employee Name | Role | Phone | + +------+ + PCP | Unavailable | + +------+ + Encounter Details +--------+ + + + + | Date | Type | Department | Care Team | Description | +--------+ + + + + | 10/29/ | Hospital | [facility] | | | | 1994 | Encounter | MED CTR LABORATORY | | | | | | [address] | | | | | | [place] | | | | | | [address] | | | | | | [phone] | | | +--------+ + + + [...] | | | | | [place] | | | | | | [address] | | | | | | | | +--------+---------+ + + + documented as of this encounter Visit Diagnoses Not on filedocumented in this encounter"
--- OUTSIDE RECORDS SUMMARY | ~2019-10-11 | XMS | Encounter Summary ---
Demographics + + + | Address | [address] | | | [place] [address] | + + + | Home Phone [...] [place] | | | | | [address] | | + + + + + Care Team Providers + +------+ + | Care Harpoon Engagement Planning Operator Name | Role | Phone | [...] + + | 09/19/ | Telephone | [facility] | Ashley Chávez | Talia (Patient | | 2019 | | CARDIOLOGY [place] Abad, Director Drug | calling to be seen | | | | [address] | | ) | | | | [place] | | | | | | [address] | | | | | | [phone] | | | +--------+ + + + [...] [place] | | | | | | [address] | | | | | | | | +--------+---------+ + + + documented as of this encounter Visit Diagnoses Not on filedocumented in this encounter"
--- OUTSIDE RECORDS SUMMARY | ~2019-10-11 | XMS | Encounter Summary ---
Demographics + + + | Address | [address] | | | [place] [address] | + + + | Home Phone [...] [place] | | | | | [address] | | + + + + + Care Team Providers + +------+ + | Care Cut Out Stitcher Name | Role | Phone | [...] + + | 06/27/ | Office | [facility] | Yecenia Richardson, | Hypertension, | | 2019 | Visit | CARDIOLOGY [place] | MD Nitin RODRIGUES | unspecified type | | | | [address] | [place], [place] | (Primary Dx); | | | | KEV SCHAFER [facility] | [address] | Bradycardia | | | | [place] | | | | | | [address] | | | | | | [phone] | | | +--------+---------+ + + + [...] urgent basis. Had an appointment today in [facility]. She has been feeling dizzy as [...] Take by mouth. Blood Glucose Monitoring Suppl (The [employer] L[employer] VERIO FLEX SYSTEM) w/Device KIT by Does [...] mg by mouth Daily. Cholecalciferol (VITAMIN D-3) 959[address] units CAPS Take 50,000 Units by mouth [...] tablet Take 10 mg by mouth nightly. [place]-3 Fatty Acids (FISH OIL CONCENTRATE) 1000 MG [...] | | | | | [place], [place] | | | | | | [address] | | | | | | | [...]
--- OUTSIDE RECORDS SUMMARY | ~2019-10-11 | XMS | Encounter Summary ---
Demographics + + + | Address | [address] | | | [place] [address] | + + + | Home Phone [...] [place] | | | | | [address] | | + + + + + Care Team Providers + +------+ + | Care Hand Former Name | Role | Phone | + +------+ + | Basim Bolanos MD | PCP | | + +------+ + Encounter Details +--------+ + + + + | Date | Type | Department | Care Team | Description | +--------+ + + + + | 03/30/ | Hospital | [facility] | Tyrese Neely MD | | | 2012 | Encounter | MED CTR MP INTRA OP | [address], [place] | | | | | [address] | [address] [place], [place] | | | | | [place], [place] | [address] | | | | | [address] | | | | | | [phone] | | | +--------+ + + + [...] + + + +---------+ + + | [place]-3 Fatty | Take 1,000 mg by | [...] [place] | | | | | | [address] | | | | | | | [...] + | [facility] | [address] | [place] | [phone] | | [facility] | | [address] | | | - LABORATORY | | | | + + + + + | [facility] | [address] | [place] | | | [facility] | | [address] | | | - LABORATORY | | [...] + | [facility] | [address] | [place], [place] | [phone] | | [facility] | | [address] | | | - LABORATORY | | | | + + + + + | [facility] | [address] | [place], [place] | | | [facility] | | [address] | | | - LABORATORY | | | | + + + + + documented in this encounter Visit Diagnoses Not on filedocumented in this encounter"
--- OUTSIDE RECORDS SUMMARY | ~2019-10-11 | XMS | Encounter Summary ---
Demographics + + + | Address | [address] | | | [place] [address] | + + + | Home Phone [...] [place] | | | | | [address] | | + + + + + Care Team Providers + +------+ + | Care Money Manager Name | Role | Phone | [...] + + | 08/28/ | Telephone | [facility] | Ashley Chávez | Other (Patient has | | 2019 | | CARDIOLOGY GENESIS Abad, Fancy Wire Drawer | questions about | | | | [address] | | monitor. ) | | | | [place] | | | | | | [address] | | | | | | [phone] | | | +--------+ + + + [...] [place] | | | | | | [address] | | | | | | | | +--------+---------+ + + + documented as of this encounter Visit Diagnoses Not on filedocumented in this encounter"
--- OUTSIDE RECORDS SUMMARY | ~2019-10-11 | XMS | Encounter Summary ---
Demographics + + + | Address | [address] | | | [place] [address] | + + + | Home Phone [...] [place], [place] | | | | | [address] | | + + + + + Care Team Providers + +------+ + | Care Geochemist Name | Role | Phone | + +------+ + PCP | Unavailable | + +------+ + Encounter Details +--------+ + + + + | Date | Type | Department | Care Team | Description | +--------+ + + + + | 02/02/ | Hospital | [facility] | | | | 1997 | Encounter | MED CTR EMERGENCY | | | | | | [address] | | | | | | [place] | | | | | | [address] | | | | | | [phone] | | | +--------+ + + + [...] | | | | | [place] | | | | | | [address] | | | | | | | | +--------+---------+ + + + documented as of this encounter Visit Diagnoses Not on filedocumented in this encounter"
--- OUTSIDE RECORDS SUMMARY | ~2019-10-11 | XMS | Encounter Summary ---
Demographics + + + | Address | [address] | | | [place] [address] | + + + | Home Phone [...] [place] | | | | | [address] | | + + + + + Care Team Providers + +------+ + | Care Addiction Professional Name | Role | Phone | [...] + + | 03/04/ | Telephone | [facility] | Baudilio Newman | Other (Plavix) | | 2014 | | NEUROLOGY LAURIE | MD Pollo Need updated | | | | | [address], | address | | | | | [address] [place] | | | | | | [place] [address] | | | | | | [phone] | | | +--------+ + + + [...] [place] | | | | | | [address] | | | | | | | | +--------+---------+ + + + documented as of this encounter Visit Diagnoses Not on filedocumented in this encounter"
--- OUTSIDE RECORDS SUMMARY | ~2019-10-11 | XMS | Encounter Summary ---
Demographics + + + | Address | [address] | | | [place] [address] | + + + | Home Phone [...] [place] | | | | | [address] | | + + + + + Care Team Providers + +------+ + | Care Wood Lathe Operator Name | Role | Phone [...] + + | 07/06/ | Emergency | [facility] | Yunior Sherman, | Chest pain, | | 2014 | | MED CTR EMERGENCY | MD [address] | unspecified chest | | | | CENTER [address] | [place], [place] | pain type (Primary | | | | [place], [place] | [address] | Dx) | | | | [address] | | | | | | [phone] | | | +--------+ + + + [...] sent through Care Everywhere.CHEST PAIN, NON CARDIAC (NEPALI)documented in this encounter Medications at Time of [...] 0 | | | | (VITAMIN D-3) [address] | mouth Once a week. | | [...] | | | | | | | ([facility]) | | | | | [...] + + + +---------+ + + | [place]-3 Fatty | Take 1,000 mg by | [...] [place] | | | | | | [address] | | | | | | | [...] [address] | [place] | [phone] | | [facility] | | [address] | | | - LABORATORY | | [...] [address] | [place] | [phone] | | [facility] | | [address] | | | - LABORATORY | | [...] | | | | | | [employer] | | | | | [...] + | [facility] | [address] | [place] | [phone] | | [facility] | | [address] | | | - LABORATORY | | [...] mL/min/1.73m2 | [facility] | | | KENYAN | RATE,ESTIMATED | | MEDICAL | | | | mL/min/1.78l4Qemk than | | CENTER - | | [...] [address] | [place] | [phone] | | [facility] | | [address] | | | - LABORATORY | | [...] [address] | [place] | [phone] | | [facility] | | [address] | | | - LABORATORY | | [...] | | | | MD NAZARIO JON ([id number]) | | | | | | on [...]
--- OUTSIDE RECORDS SUMMARY | ~2019-10-11 | XMS | Encounter Summary ---
Demographics + + + | Address | [address] | | | [place] [address] | + + + | Home Phone [...] [place] | | | | | [address] | | + + + + + Care Team Providers + +------+ + | Care Tack Coverer Name | Role | Phone | [...] + | 07/29/ | Telephone | [facility] | Frandy Teresa, | Other (multiple | | 2013 | | NEUROSURGERY [address] | DO [address] | questions) | | | | [address] | [address] [place], [place] | | | | | [place], [place] | [address] | | | | | [address] | | | | | | [phone] | | | +--------+ + + + [...] | | | | | [place] | | | | | | [address] | | | | | | | | +--------+---------+ + + + documented as of this encounter Visit Diagnoses Not on filedocumented in this encounter"
--- OUTSIDE RECORDS SUMMARY | ~2019-10-11 | XMS | Encounter Summary ---
Demographics + + + | Address | [address] | | | [place] [address] | + + + | Home Phone [...] [place], [place] | | | | | [address] | | + + + + + Care Team Providers + +------+ + | Care Real Estate Loan Processor Name | Role | Phone | + +------+ + PCP | Unavailable | + +------+ + Encounter Details +--------+ + + + + | Date | Type | Department | Care Team | Description | +--------+ + + + + | 05/23/ | Hospital | [facility] | Dale, Heath E A, | | | 2012 | Encounter | MED CTR XRAY [address] | MD [address] | | | | | [place] | [place] | | | | | [place] [address] | [address] | | | | | [phone] | | | +--------+ + + + [...] + + + +---------+ + + | [place]-3 Fatty | Take 1,000 mg by | [...] [place] | | | | | | [address] | | | | | | | [...] Performed At | + + + | [facility] Diagnostic Imaging Department | [facility] | | [address] [facility] | [facility] | | LUMBAR SPINE MR WITHOUT [...] Transcribed Date/Time: | | | 05/23/2012 16:55 Brand Development Manager: <Electronically Signed | | | by Adriano Anne MD> 05/23/12 8505 | | + + + + + | Procedure Note | + + | Manohar Martinez Conversion - 11/30/2013 5:47 PM [facility] | | Diagnostic Imaging Department [address] [facility] [place] | | LUMBAR SPINE MR WITHOUT CONTRAST, [...] 16:37 | |Transcribed Date/Time: 05/23/2012 16:55 | |Brand Development Manager: | |<Electronically Signed by Adriano Anne [...]
--- OUTSIDE RECORDS SUMMARY | ~2019-10-11 | XMS | Encounter Summary ---
Demographics + + + | Address | [address] | | | [place] [address] | + + + | Home Phone [...] [place] | | | | | [address] | | + + + + + Care Team Providers + +------+ + | Care Art Therapy Certified Supervisor Name | Role | Phone | [...] + | 06/20/ | Telephone | [facility] | Frandy Teresa, | Other (surgery | | 2013 | | NEUROSURGERY [address] | DO [address] | reminder ) | | | | [address] | [address] [place], [place] | | | | | [place], [place] | [address] | | | | | [address] | | | | | | [phone] | | | +--------+ + + + [...] | | | | | [place] | | | | | | [address] | | | | | | | | +--------+---------+ + + + documented as of this encounter Visit Diagnoses Not on filedocumented in this encounter"
--- OUTSIDE RECORDS SUMMARY | ~2019-10-11 | XMS | Encounter Summary ---
Demographics + + + | Address | [address] | | | [place] [address] | + + + | Home Phone [...] [place] | | | | | [address] | | + + + + + Care Team Providers + +------+ + | Care Manager Application Name | Role | Phone | + [...] + | 11/25/ | Telephone | [facility] | Frandy Teresa, | Medication Refill | | 2015 | | NEUROSURGERY [address] | DO [address] | Assistance | | | | [address] | [address] [place], [place] | | | | | [place], [place] | [address] | | | | | [address] | | | | | | [phone] | | | +--------+ + + + [...] | | | | [place] | | | | | | [address] | | | | | | | | +--------+---------+ + + + documented as of this encounter Visit Diagnoses Not on filedocumented in this encounter"
--- OUTSIDE RECORDS SUMMARY | ~2019-10-11 | XMS | Encounter Summary ---
Demographics + + + | Address | [address] | | | [place] [address] | + + + | Home Phone [...] [place] | | | | | [address] | | + + + + + Care Team Providers + +------+ + | Care Engine Service Repairer Name | Role | Phone | [...] | | [address] | [place], [place] | | | | | [place], [place] | [address] | | | | | [address] | | | | | | [phone] | | | +--------+ + + + [...] | | | [place] | | | | | | [address] | | | | | | | [...] 0.83 m/s | | | MV Dec Jones: 2.85 m/s2 MV DecT: 282.89 ms MV E Teodoro: 0.80 | | | m/s MV E/A Ratio: 0.96 E/E' Sept: 12.59 E' Lat: 0.08 m/s | | | E' Sept: 0.06 m/s RAP: 10 mmHg RV S': 0.11 m/s RVSP: | | | 27.96 mmHg TR maxP.96 mmHg TR Vmax: 2.11 m/s | | | Fisher Hoop Net: Authenticated by: Desiree Peterson MD Report Date/Time: | | | -- [id number]:31:1 | | + + + + + [...] (A-L): 19.60 | | ml/m2LAAs A2C: 15.44 [id number] A-L A2C: 43.84 mlLAESV MOD A2C: 42.12 mlLALs A2C: | | 4.61 cmLAAs A4C: 14.18 [id number] A-L A4C: 38.73 mlLAESV MOD A4C: 37.04 mlLALs A4C: | | 4.41 cmRAAs: 12.15 [id number] A-L: 28.54 mlRAESV MOD: 28.66 mlRALs: 4.39 | | cmTAPSE: 2.42 cmAV Env.Ti: 293.94 msAV maxP.18 mmHgAV meanP.09 mmHgAV | | Vmax: 1.88 m/Eddie Vmean: 1.25 m/Eddie VTI: 36.84 cmAVA Vmax: 2.06 cm2AVA (VTI): | | 2.24 qd2XEBN Vmax: 0.00 cm2/m2AVAI (VTI): 0.00 cm2/m2LVOT Env.Ti: 299.59 msLVOT | | maxP.52 mmHgLVOT meanP.65 mmHgLVSI Dopp: 38.55 ml/m2LVSV Dopp: 82.89 | | mlLVOT Vmax: 1.27 m/sLVOT Vmean: 0.91 m/sLVOT VTI: 27.27 cmMV A Teodoro: 0.83 m/sMV | | Dec Jones: 2.85 m/s2MV DecT: 282.89 msMV E Teodoro: 0.80 m/sMV E/A Ratio: 0.96E/E' | | Sept: 12.59E' Lat: 0.08 m/sE' Sept: 0.06 m/sRAP: 10 mmHgRV S': 0.11 m/sRVSP: | | 27.96 mmHgTR maxP.96 mmHgTR Vmax: 2.11 m/s Fisher Hoop Net:Authenticated by: | | Desiree Peterson MDReport Date/Time: -- [id number]_4:31:1 IMPRESSION: 1. Overall left | | ventricular [...] A Teodoro: 0.83 m/s | |MV Dec Jones: 2.85 m/s2 | |MV DecT: 282.89 ms | |MV E Teodoro: 0.80 m/s | |MV E/A Ratio: 0.96 | |E/E' Sept: 12.59 | |E' Lat: 0.08 m/s | |E' Sept: 0.06 m/s | |RAP: 10 mmHg | |RV S': 0.11 m/s | |RVSP: 27.96 mmHg | |TR maxP.96 mmHg | |TR Vmax: 2.11 m/s | | | |Fisher Hoop Net: | |Authenticated by: Desiree Peterson MD | |Report Date/Time: -- [id number]:31:1 | | | |IMPRESSION: | |1. Overall [...]
--- OUTSIDE RECORDS SUMMARY | ~2019-10-11 | XMS | Encounter Summary ---
Demographics + + + | Address | [address] | | | [place] [address] | + + + | Home Phone [...] [place], [place] | | | | | [address] | | + + + + + Care Team Providers + +------+ + | Care Safety Manager Name | Role | Phone | + +------+ + PCP | Unavailable | + +------+ + Encounter Details +--------+ + + + + | Date | Type | Department | Care Team | Description | +--------+ + + + + | 01/06/ | Hospital | [facility] | | | | 1992 | Encounter | MED CTR LABORATORY | | | | | | [address] | | | | | | [place] | | | | | | [address] | | | | | | [phone] | | | +--------+ + + + [...] | | | | | [place] | | | | | | [address] | | | | | | | | +--------+---------+ + + + documented as of this encounter Visit Diagnoses Not on filedocumented in this encounter"
--- OUTSIDE RECORDS SUMMARY | ~2019-10-11 | XMS | Encounter Summary ---
Demographics + + + | Address | [address] | | | [place] [address] | + + + | Home Phone [...] [place] | | | | | [address] | | + + + + + [...] + + | 07/19/ | Office | [facility] | Desiree Peterson DO | Syncope, unspecified | | 2019 | Visit | CARDIOLOGY [place] | [address] | syncope type | | | | [address] | [place], [place] | (Primary Dx); | | | | [address] [place] | [address] | Essential | | | | [place] | | hypertension; | | | | [address] | | Irregular heartbeat | | | | [phone] | | | +--------+---------+ + + + [...] Peterson DO - 07/19/2019 10:40 AM PDT [facility] Cardiology Cardiology Follow Up Note Reason [...] by mouth daily. Blood Glucose Monitoring Suppl ([employer] VERIO FLEX SYSTEM) w/Device KIT by Does not ap ply route. budesonide-formoterol (SYMBICORT) 160-4.5 MCG/ACT inhaler Inhale 2 puffs into the lungs 2 (two) times daily. Calcium Carbonate Antacid 1000 MG tablet Take 1,000 mg by mouth 3 (three) times daily. Cholecalciferol (VITAMIN D3) 80224 units CAPS Take by mouth once a [...] [place] | | | | | | [address] | | | | | | | [...]
--- OUTSIDE RECORDS SUMMARY | ~2019-10-11 | XMS | Encounter Summary ---
Demographics + + + | Address | [address] | | | [place] [address] | + + + | Home Phone [...] [place], [place] | | | | | [address] | | + + + + + Care Team Providers + +------+ + | Care Construction Technology Instructor Name | Role | Phone [...] [place] | | | | | | [address] | | | | | | [phone] | | | +--------+ + + + [...] | | | | | [place] [employer] [place] | | | | | | [address] | | | | | | | | +--------+---------+ + + + documented as of this encounter Visit Diagnoses Not on filedocumented in this encounter"
--- OUTSIDE RECORDS SUMMARY | ~2019-10-11 | XMS | Encounter Summary ---
Demographics + + + | Address | [address] | | | [place] [address] | + + + | Home Phone [...] [place] | | | | | [address] | | + + + + + Care Team Providers + +------+ + | Care Studio Designer Name | Role | Phone | [...] + + | 10/04/ | Office | [facility] | Desiree Peterson DO | ROGERS on CPAP (Primary | | 2019 | Visit | CARDIOLOGY [place] | [address] | Dx); Morbid obesity | | | | [address] | [place], [place] | (HCC); Benign | | | | [address] | [id number] | essential HTN; | | | | [place], [place] | | Atrial fibrillation, | | | | [address] | | unspecified type | | | | [phone] | | ([facility]) | +--------+---------+ + + + Social History [...] Peterson DO - 10/04/2019 11:40 AM PST [facility] Cardiology Cardiology Follow Up Note Reason [...] rtake in exercise. She recently got a [employer] and has been walking him more regularly. [...] by mouth daily. Blood Glucose Monitoring Suppl ([employer] FLEX [employer]) w/Device KIT by Does not ap ply route. budesonide-formoterol (SYMBICORT) 160-4.5 MCG/ACT inhaler Inhale 2 puffs into the lungs 2 (two) times daily. Calcium Carbonate Antacid 1000 MG tablet Take 1,000 mg by mouth 3 (three) times daily. Cholecalciferol (VITAMIN D3) 19726 units CAPS Take by mouth once a [...] [place] | | | | | | [id number] | | | | | | | [...]
--- OUTSIDE RECORDS SUMMARY | ~2019-10-11 | XMS | Encounter Summary ---
Demographics + + + | Address | [address] | | | [place] [address] | + + + | Home Phone [...] [place] | | | | | [address] | | + + + + + Care Team Providers + +------+ + | Care Medical Records Coordinator Name | Role | Phone | + +------+ + | Adriano Patrick MD | PCP | | + +------+ + Encounter Details +--------+ + + + + | Date | Type | Department | Care Team | Description | +--------+ + + + + | 06/10/ | Abstract | [facility] | Thierry Fry | | | 2014 | | MEDICINE [address] | MD Lisa [address] | | | | | [address] [place] | [address] [place] | | | | | [place] [address] | [id number] | | | | | [phone] | | | +--------+ + + + [...] | | | | | [place] | | | | | | [address] | | | | | | | [...]
--- OUTSIDE RECORDS SUMMARY | ~2019-10-11 | XMS | Encounter Summary ---
Demographics + + + | Address | [address] | | | [place] [address] | + + + | Home Phone [...] [place], [place] | | | | | [address] | | + + + + + Care Team Providers + +------+ + | Care Silver Brazer Name | Role | Phone | + +------+ + PCP | Unavailable | + +------+ + Encounter Details +--------+ + + + + | Date | Type | Department | Care Team | Description | +--------+ + + + + | 06/07/ | Hospital | [facility] | | | | 1991 - | Encounter | MED CTR GENERIC OP | | | | | | CONV DEPT [address] | | | | 10/07/ | | [address] [place], | | | | 1991 | | [place] [address] | | | | | | [phone] | | | +--------+ + + + [...] [place] | | | | | | [address] | | | | | | | | +--------+---------+ + + + documented as of this encounter Visit Diagnoses Not on filedocumented in this encounter"
--- OUTSIDE RECORDS SUMMARY | ~2019-10-11 | XMS | Encounter Summary ---
Demographics + + + | Address | [address] | | | [place] [address] | + + + | Home Phone [...] [place] | | | | | [address] | | + + + + + Care Team Providers + +------+ + | Care Application Systems Architect Name | Role | Phone [...] [address] | [address] [place], [place] | | | | | [place], [place] | [id number] | | | | | [address] | | | | | | [phone] | | | +--------+ + + + [...] | | | | | [place] | | | | | | [address] | | | | | | | | +--------+---------+ + + + documented as of this encounter Visit Diagnoses Not on filedocumented in this encounter"
--- OUTSIDE RECORDS SUMMARY | ~2019-10-11 | XMS | Encounter Summary ---
Demographics + + + | Address | [address] | | | [place] [address] | + + + | Home Phone [...] [place], [place] | | | | | [address] | | + + + + + Care Team Providers + +------+ + | Care Press Reader Name | Role | Phone | + +------+ + PCP | Unavailable | + +------+ + Encounter Details +--------+ + + + + | Date | Type | Department | Care Team | Description | +--------+ + + + + | 06/30/ | Hospital | [facility] | | | | 2000 | Encounter | MED CTR EMERGENCY | | | | | | [address] | | | | | | [place] | | | | | | [address] | | | | | | [phone] | | | +--------+ + + + [...] | | | | | [place] | | | | | | [address] | | | | | | | | +--------+---------+ + + + documented as of this encounter Visit Diagnoses Not on filedocumented in this encounter"
--- OUTSIDE RECORDS SUMMARY | ~2019-10-11 | XMS | Encounter Summary ---
Demographics + + + | Address | [address] | | | [place] [address] | + + + | Home Phone [...] [place] | | | | | [address] | | + + + + + Care Team Providers + +------+ + | Care Quality Assurance Director Name | Role | Phone | [...] + + | 08/16/ | Telephone | [facility] | Ashley Chávez | Other (Called to | | 2018 | | CARDIOLOGY [place] | Pollo, Supervisor Electronics Assembly | tell patient what | | | | [address] | | Nicholas said. ) | | | | [address] | | | | | | [place] | | | | | | [address] | | | | | | [phone] | | | +--------+ + + + [...] [place] | | | | | | [address] | | | | | | | | +--------+---------+ + + + documented as of this encounter Visit Diagnoses Not on filedocumented in this encounter"
--- OUTSIDE RECORDS SUMMARY | ~2019-10-11 | XMS | Encounter Summary ---
Demographics + + + | Address | [address] | | | [place] [address] | + + + | Home Phone [...] [place] | | | | | [address] | | + + + + + Care Team Providers + +------+ + | Care Authorization Nurse Name | Role | Phone [...] | | | spondylolist | | [address] | | | | | hesis | | [place], | | | | | Spinal | | [place] [address] | | | | | stenosis, | | Phone: | | | | | lumbar | | [phone] | | | | | region, | | Fax: | | | | | without | | [phone] | | | | | neurogenic | [...] | | | | | | | [place] | | | | | | [...] | | | | | | [place] | | | | | | | [...] | | | | | | [place] | | | | | | | [...] + + | 07/02/ | Hospital | [facility] | Frandy Teresa, | Spinal stenosis, | | 2013 | Encounter | MED CTR XRAY [address] | DO [address] | lumbar region, | | | | [place] | [address] [place], [place] | without neurogenic | | | | [place] [address] | [address] | claudication | | | | [phone] | | (Primary Dx) | +--------+ + [...] + + + +---------+ + + | [place]-3 Fatty | Take 1,000 mg by | [...] [place] | | | | | | [address] | | | | | | | [...]
--- OUTSIDE RECORDS SUMMARY | ~2019-10-11 | XMS | Encounter Summary ---
Demographics + + + | Address | [address] | | | [place] [address] | + + + | Home Phone [...] [place], [place] | | | | | [address] | | + + + + + Care Team Providers + +------+ + | Care Ballast Cleaning Operator Name | Role | Phone | + +------+ + PCP | Unavailable | + +------+ + Encounter Details +--------+ + + + + | Date | Type | Department | Care Team | Description | +--------+ + + + + | 07/23/ | Hospital | [facility] | | | | 1992 - | Encounter | MED CTR GENERIC PSY | | | | | | CONV DEPT [address] | | | | 07/28/ | | [address], | | | | 1992 | | [place] [address] | | | | | | [phone] | | | +--------+ + + + [...] [place] | | | | | | [address] | | | | | | | | +--------+---------+ + + + documented as of this encounter Visit Diagnoses Not on filedocumented in this encounter"
--- OUTSIDE RECORDS SUMMARY | ~2019-10-11 | XMS | Encounter Summary ---
Demographics + + + | Address | [address] | | | [place] [address] | + + + | Home Phone [...] [place], [place] | | | | | [address] | | + + + + + Care Team Providers + +------+ + | Care Customer Experience Analyst Name | Role | Phone | + +------+ + PCP | Unavailable | + +------+ + Encounter Details +--------+ + + + + | Date | Type | Department | Care Team | Description | +--------+ + + + + | 12/27/ | Hospital | [facility] | | | | 1997 - | Encounter | MED CTR GENERIC PSY | | | | | | CONV DEPT [address] | | | | 01/01/ | | [address], | | | | 1997 | | [place] [address] | | | | | | [phone] | | | +--------+ + + + [...] [place] | | | | | | [address] | | | | | | | | +--------+---------+ + + + documented as of this encounter Visit Diagnoses Not on filedocumented in this encounter"
--- OUTSIDE RECORDS SUMMARY | ~2019-10-11 | XMS | Encounter Summary ---
Demographics + + + | Address | [address] | | | [place] [address] | + + + | Home Phone [...] [place] | | | | | [address] | | + + + + + Care Team Providers + +------+ + | Care Batch Plant Operator Name | Role | Phone [...] + | 08/15/ | Documentati | [facility] | Katharine Moncada, | Other (urgent | | 2019 | on | CARDIOLOGY [place] | Technologist | report) | | | | [address] | | | | | | [place] | | | | | | [address] | | | | | | [phone] | | | +--------+ + + + [...] [place] | | | | | | [address] | | | | | | | | +--------+---------+ + + + documented as of this encounter Visit Diagnoses Not on filedocumented in this encounter"
--- OUTSIDE RECORDS SUMMARY | ~2019-10-11 | XMS | Encounter Summary ---
Demographics + + + | Address | [address] | | | [place] [address] | + + + | Home Phone [...] [place] | | | | | [address] | | + + + + + Care Team Providers + +------+ + | Care Ammonia Still Operator Name | Role | Phone | + +------+ + | Basim Bolanos MD | PCP | | + +------+ + Encounter Details +--------+ + + + + | Date | Type | Department | Care Team | Description | +--------+ + + + + | 02/22/ | Abstract | [facility] [place] | [facility], | | | 2012 | | GASTROENTEROLOGY | FORTUNATO Thomas [address] | | | | | [address] [place] | [place], [address] | | | | | [address] [place], [place] | [place], [place] | | | | | [address] | [address] | | | | | [phone] | | | +--------+ + + + [...] [place] | | | | | | [address] | | | | | | | | +--------+---------+ + + + documented as of this encounter Visit Diagnoses Not on filedocumented in this encounter"
--- OUTSIDE RECORDS SUMMARY | ~2019-10-11 | XMS | Encounter Summary ---
Demographics + + + | Address | [address] | | | [place] [address] | + + + | Home Phone [...] [place] | | | | | [address] | | + + + + + Care Team Providers + +------+ + | Care Senior Courtroom Clerk Name | Role | Phone | + +------+ + PCP | Unavailable | + +------+ + Encounter Details +--------+ + + + + | Date | Type | Department | Care Team | Description | +--------+ + + + + | 04/27/ | Hospital | [facility] | Sage Garza MD | | | 2001 | Encounter | HOSPITAL EMERGENCY | | | | | | CENTER [address] | [address] [place], [place] | | | | | | [address] | | | | | | [phone] | | | +--------+ + + + [...] [place] | | | | | | [address] | | | | | | | | +--------+---------+ + + + documented as of this encounter Visit Diagnoses Not on filedocumented in this encounter"
--- OUTSIDE RECORDS SUMMARY | ~2019-10-11 | XMS | Encounter Summary ---
Demographics + + + | Address | [address] | | | [place] [address] | + + + | Home Phone [...] [place] | | | | | [address] | | + + + + + Care Team Providers + +------+ + | Care Surface Grinder Tender Name | Role | Phone | [...] + + | 07/24/ | Telephone | [facility] | Ashley Chávez | Other (Patient is | | 2019 | | CARDIOLOGY [place] Abad, Atomic Welder | worried about paying | | | | [address] | | for monitor. ) | | | | [place] | | | | | | [address] | | | | | | [phone] | | | +--------+ + + + [...] [place] | | | | | | [address] | | | | | | | | +--------+---------+ + + + documented as of this encounter Visit Diagnoses Not on filedocumented in this encounter"
--- OUTSIDE RECORDS SUMMARY | ~2019-10-11 | XMS | Encounter Summary ---
Demographics + + + | Address | [address] | | | [place] [address] | + + + | Home Phone [...] [place] | | | | | [address] | | + + + + + Care Team Providers + +------+ + | Care Morning News Anchor Name | Role | Phone | + +------+ + | Basim Bolanos MD | PCP | | + +------+ + Encounter Details +--------+ + + + + | Date | Type | Department | Care Team | Description | +--------+ + + + + | 01/24/ | Abstract | [facility] [place] | [facility], | | | 2012 | | GASTROENTEROLOGY | FORTUNATO Thomas [address] | | | | | [address] [place] | [employer], [address] | | | | | [address] [place], [place] | [place], [place] | | | | | [address] | [address] | | | | | [phone] | | | +--------+ + + + [...]
--- OUTSIDE RECORDS SUMMARY | ~2019-10-11 | XMS | Encounter Summary ---
Demographics + + + | Address | [address] | | | [place] [address] | + + + | Home Phone [...] [place], [place] | | | | | [address] | | + + + + + Care Team Providers + +------+ + | Care Tassel Maker Name | Role | Phone | + +------+ + PCP | Unavailable | + +------+ + Encounter Details +--------+ + + + + | Date | Type | Department | Care Team | Description | +--------+ + + + + | 04/16/ | Hospital | [facility] | | | | 1997 | Encounter | MED CTR XRAY [address] | | | | | | [address] | | | | | | [place] [address] | | | | | | [phone] | | | +--------+ + + + [...] | | | | | [place] | | | | | | [address] | | | | | | | | +--------+---------+ + + + documented as of this encounter Visit Diagnoses Not on filedocumented in this encounter"
--- OUTSIDE RECORDS SUMMARY | ~2019-10-11 | XMS | Encounter Summary ---
Demographics + + + | Address | [address] | | | [place] [address] | + + + | Home Phone [...] [place] | | | | | [address] | | + + + + + Care Team Providers + +------+ + | Care Sewer Inspector Name | Role | Phone | [...] | Services | ogy | Epigastric | [facility], | Tyrese Shelley MD | | | Required | | abdominal | [place], | [address], | | | | | pain GERD | TOWN ADMINISTRATOR [address] | [address] | | | | | (gastroesoph | [place], [place] | [place], | | | | | ageal reflux | [address] [place] | [place] [address] | | | | | disease) | [place], [place] | Phone: | | | | | Fatty liver | [address] | [phone] | | | | | DM | Phone: | Fax: | | | | | (diabetes | [phone] | [phone] | | | | | mellitus) | Fax: | | | | | | (HCC) | [phone] | | +--------+ + + + + [...] Office | [facility] | [facility], | Epigastric abdominal | | 2012 | Visit | GASTROENTEROLOGY | FORTUNATO Thomas [address] | pain (Primary Dx); | | | | [address] [place] | [place], [address] | GERD | | | | [address] [place], [place] | [place], [place] | (gastroesophageal | | | | [address] | [address] | reflux disease); | | | | [phone] | | Fatty liver; DM | | [...] years ago by Dr. Saravanan Tsai, in [facility]. Colonoscopy was done 05/[address] Hamlin in [facility]. Allergies Allergen Reactions Demerol Duloxetine [...] | | | | | [place], [place] | | | | | | [phone] | | | | | | | [...]
--- OUTSIDE RECORDS SUMMARY | ~2019-10-11 | XMS | Encounter Summary ---
Demographics + + + | Address | [address] | | | [place] [address] | + + + | Home Phone [...] | Arcaeli Sibley | ECON | [place] | | | | | [address] | | + + + + + Care Team Providers + +------+ + | Care Railroad Accountant Name | Role | Phone | [...] [place] | | | | | | [address] | | | | | | [phone] | | | +--------+ + + + [...] [place] | | | | | | [address] | | | | | | | | +--------+---------+ + + + documented as of this encounter Visit Diagnoses Not on filedocumented in this encounter"
--- OUTSIDE RECORDS SUMMARY | ~2019-10-11 | XMS | Encounter Summary ---
Demographics + + + | Address | [address] | | | [place] [address] | + + + | Home Phone [...] [place] | | | | | [address] | | + + + + + Care Team Providers + +------+ + | Care Dock Boss Name | Role | Phone | [...] + + | 01/02/ | Telephone | [facility] | Frandy Teresa, | Other (6m x-ray ) | | 2014 | | NEUROSURGERY [address] | DO [address] | | | | | [address] | [address] [place], [place] | | | | | [place], [place] | [id number] | | | | | [address] | | | | | | [phone] | | | +--------+ + + + [...] [place] | | | | | | [address] | | | | | | | | +--------+---------+ + + + documented as of this encounter Visit Diagnoses Not on filedocumented in this encounter"
--- OUTSIDE RECORDS SUMMARY | ~2019-10-11 | XMS | Encounter Summary ---
Demographics + + + | Address | [address] | | | [place] [address] | + + + | Home Phone [...] [place] | | | | | [address] | | + + + + + Care Team Providers + +------+ + | Care Commercial Or Institutional Cleaner Name | Role | Phone | [...] + + | 06/12/ | Office | [facility] | Chris Nicole, | Spondylisthesis | | 2013 | Visit | NEUROSURGERY [address] | PA-C [address] | (Primary Dx); | | | | [address] | [place], [place] | Radiculopathy of | | | | [place], [place] | [address] | leg; Lumbar spine | | | | [address] | | instability; Lumbar | | | | [phone] | | spondylosis; | | | | [...] rom the original. ZANE Castillo [address] [place] [address] FAX: NEUROSURGERY HISTORY AND PHYSICAL [...] Take 15 mg by mouth nightl y. [place]-3 Fatty Acids (FISH OIL CONCENTRATE) 1000 MG [...] Intrinsics 5 5 Ulnar Intrinsics 5 5 Manufacturing Systems Engineer Strength 5 5 Hip Flexion 5 [...] [place] | | | | | | [address] | | | | | | | [...]
--- OUTSIDE RECORDS SUMMARY | ~2019-10-11 | XMS | Encounter Summary ---
Demographics + + + | Address | [address] | | | [place] [address] | + + + | Home Phone [...] [place] | | | | | [address] | | + + + + + Care Team Providers + +------+ + | Care Violin Maker Hand Name | Role | Phone | + +------+ + | Thierry Fry MD | PCP | | + +------+ + Encounter Details +--------+ + + + + | Date | Type | Department | Care Team | Description | +--------+ + + + + | 03/06/ | Hospital | [facility] | Katharine Cardona PA-C | Essential | | 2015 | Encounter | MED CTR LABORATORY | [address] | hypertension | | | | [address] [place] | [place] [address] | | | | | [place], [place] | [phone] | | | | | [address] | | | | | | [phone] | | | +--------+ + + + [...] 0 | | | | (VITAMIN D-3) [address] | mouth Once a week. | | [...] + + + +---------+ + + | Agar-3 Fatty | Take 1,000 mg by | 60 each | 5 | 03/09/20 | | | Acids (FISH OIL | mouth 2 times daily. | | | 15 | 9 | | CONCENTRATE) 1000 MG | | | | | | | CAPS | | | | | | + + + +---------+ + + | Agar-3 Fatty | Take 1,000 mg by | [...] | | | | | [place] | | | | | | [address] | | | | | | | [...] mL/min/1.73m2 | [facility] | | | [facility] | RATE,ESTIMATED | | MEDICAL | | | | mL/min/1.38a4Yquo than | | CENTER - | | [...] | | | | | mg/dL | [facility] | | | | | | MEDICAL | | | | | | CENTER - | | | | | | LABORATORY | | + + + + + + | Albumin | 4.1 | 3.2 - 5.0 g/dL | [facility] | | | | | | [facility] | | | | [...] [address] | [place] | [phone] | | [facility] | | [address] | | | - LABORATORY | | | | + + + + + documented in this encounter Visit Diagnoses + + | Diagnosis | + + | Essential hypertension Unspecified essential hypertension | + + documented in this encounter"
--- OUTSIDE RECORDS SUMMARY | ~2019-10-11 | XMS | Encounter Summary ---
Demographics + + + | Address | [address] | | | [place] [address] | + + + | Home Phone [...] [place] | | | | | [address] | | + + + + + Care Team Providers + +------+ + | Care Byproducts Operator Name | Role | Phone | + +------+ + | Natalee Andersen NP | PCP | | + +------+ + Encounter Details +--------+ + + + + | Date | Type | Department | Care Team | Description | +--------+ + + + + | 06/25/ | Hospital | [facility] | Frandy Teresa, | Acquired | | 2014 | Encounter | MED CTR XRAY [address] | DO [address] | spondylolisthesis | | | | [place] | [address] [place], [place] | | | | | [place] [address] | [address] | | | | | [phone] | | | +--------+ + + + [...] + + + +---------+ + + | [place]-3 Fatty | Take 1,000 mg by | [...] [place] | | | | | | [address] | | | | | | | | +--------+---------+ + + + documented as of this encounter Visit Diagnoses + + | Diagnosis | + + | Acquired spondylolisthesis | + + documented in this encounter"
--- OUTSIDE RECORDS SUMMARY | ~2019-10-11 | XMS | Encounter Summary ---
Demographics + + + | Address | [address] | | | [place] [address] | + + + | Home Phone [...] [place], [place] | | | | | [address] | | + + + + + Care Team Providers + +------+ + | Care Shipyard Painter Apprentice Name | Role | Phone | + +------+ + PCP | Unavailable | + +------+ + Encounter Details +--------+ + + + + | Date | Type | Department | Care Team | Description | +--------+ + + + + | 02/02/ | Hospital | [facility] | | | | 1997 - | Encounter | MED CTR GENERIC PSY | | | | | | CONV DEPT [address] | | | | 02/05/ | | [address], | | | | 1997 | | [place] [address] | | | | | | [phone] | | | +--------+ + + + [...] [place] | | | | | | [address] | | | | | | | | +--------+---------+ + + + documented as of this encounter Visit Diagnoses Not on filedocumented in this encounter"
--- OUTSIDE RECORDS SUMMARY | ~2019-10-11 | XMS | Encounter Summary ---
Demographics + + + | Address | [address] | | | [place] [address] | + + + | Home Phone [...] [place] | | | | | [address] | | + + + + + Care Team Providers + +------+ + | Care Dry Roaster Name | Role | Phone | [...] + + | 08/21/ | Documentati | [facility] | Katharine Moncada, | Other (urgent | | 2019 | on | CARDIOLOGY [place] | Technologist | report) | | | | [address] | | | | | | [place] | | | | | | [address] | | | | | | [phone] | | | +--------+ + + + [...] 2020 | Visit | | [address] | | | | | | [place] | | | | | | [address] | | | | | | | | +--------+---------+ + + + documented as of this encounter Visit Diagnoses Not on filedocumented in this encounter"
--- OUTSIDE RECORDS SUMMARY | ~2019-10-11 | XMS | Encounter Summary ---
Demographics + + + | Address | [address] | | | [place] [address] | + + + | Home Phone [...] [place] | | | | | [address] | | + + + + + Care Team Providers + +------+ + | Care Etcher Enameling Name | Role | Phone | + [...] + + | 06/28/ | Telephone | [facility] | Ashley Chávez | Talia (Patient | | 2019 | | CARDIOLOGY GENESIS Abad, Management Professional | called to cancel her | | | | [address] | | appointment) | | | | [place] | | | | | | [address] | | | | | | [phone] | | | +--------+ + + + [...] [place] | | | | | | [address] | | | | | | | | +--------+---------+ + + + documented as of this encounter Visit Diagnoses Not on filedocumented in this encounter"
--- OUTSIDE RECORDS SUMMARY | ~2019-10-11 | XMS | Encounter Summary ---
Demographics + + + | Address | [address] | | | [place] [address] | + + + | Home Phone [...] [place] | | | | | [address] | | + + + + + Care Team Providers + +------+ + | Care Physical Therapy Aid Name | Role | Phone | [...] [place] | | | | | | [address] | | | | | | [phone] | | | +--------+ + + + [...] [place] | | | | | | [address] | | | | | | | | +--------+---------+ + + + documented as of this encounter Visit Diagnoses Not on filedocumented in this encounter"
--- OUTSIDE RECORDS SUMMARY | ~2019-10-11 | XMS | Encounter Summary ---
Demographics + + + | Address | [address] | | | [place] [address] | + + + | Home Phone [...] [place], [place] | | | | | [address] | | + + + + + Care Team Providers + +------+ + | Care E Commerce Manager Name | Role | Phone | + +------+ + PCP | Unavailable | + +------+ + Encounter Details +--------+ + + + + | Date | Type | Department | Care Team | Description | +--------+ + + + + | 08/21/ | Hospital | [facility] | | | | 1996 | Encounter | MED CTR LABORATORY | | | | | | [address] | | | | | | [place] | | | | | | [address] | | | | | | [phone] | | | +--------+ + + + [...] | | | | | [place] | | | | | | [address] | | | | | | | | +--------+---------+ + + + documented as of this encounter Visit Diagnoses Not on filedocumented in this encounter"
--- OUTSIDE RECORDS SUMMARY | ~2019-10-11 | XMS | Encounter Summary ---
Demographics + + + | Address | [address] | | | [place] [address] | + + + | Home Phone [...] [place], [place] | | | | | [address] | | + + + + + Care Team Providers + +------+ + | Care Helper Animal Laboratory Name | Role | Phone | + [...] | SR | | | | | [phone] | | | +--------+ + + + [...] [place] | | | | | | [address] | | | | | | | | +--------+---------+ + + + documented as of this encounter Visit Diagnoses Not on filedocumented in this encounter
--- OUTSIDE RECORDS SUMMARY | ~2019-10-11 | XMS | Encounter Summary ---
Demographics + + + | Address | [address] | | | [place] [address] | + + + | Home Phone [...] + + + | Author | [facility] | + + + | Organization | [facility] | + + + | Address | Unknown | + + + | Phone | Unavailable | + + + Support + + + + + | Name | Relationship | Address | Phone | + + + + + | Kelsy Bautista | ECON | [address] | | | | | [place] | | | | | [address] | | + + + + + Care Team Providers + +------+ + | Care International Trade Analyst Name | Role | Phone | [...] [id number] | | | | | | [place], [place] | | | | | | [address] | | | | | | [phone] | | | +--------+ + + + [...] + + + | [facility] | [address] | [place] [address] | | | PATHOLOGY | [address] [...] Re | | | | | | [id number] | | | | + + + + + + + + | Specimen | + + | | + + + + + + + | Performing | Address | City/State/Zipcode | Phone Number | | Organization | | | | + + + + + | [facility] | [address] | [place] [address] | | | PATHOLOGY | [address] [...] Re | | | | | | [phone] | | | | + + + + + + + + | Specimen | + + | | + + + + + + + | Performing | Address | City/State/Zipcode | Phone Number | | Organization | | | | + + + + + | [facility] | [address] | [place] [address] | | | PATHOLOGY | [address] [...] Re | | | | | | [phone] | | | | + + + + + + + + | Specimen | + + | | + + + + + + + | Performing | Address | City/State/Zipcode | Phone Number | | Organization | | | | + + + + + | [facility] | [address] | [place] [address] | | | PATHOLOGY | [address] [...] Re | | | | | | [phone] | | | | + + + + + + + + | Specimen | + + | | + + + + + + + | Performing | Address | City/State/Zipcode | Phone Number | | Organization | | | | + + + + + | [facility] | [address] | [place] [address] | | | PATHOLOGY | [address] | | | + + + + + documented in this encounter Visit Diagnoses Not on filedocumented in this encounter"
--- OUTSIDE RECORDS SUMMARY | ~2019-10-11 | XMS | Encounter Summary ---
Demographics + + + | Address | [address] | | | [place] [address] | + + + | Home Phone [...] [place], [place] | | | | | [address] | | + + + + + Care Team Providers + +------+ + | Care Grounds Foreman Name | Role | Phone | + +------+ + PCP | Unavailable | + +------+ + Encounter Details +--------+ + + + + | Date | Type | Department | Care Team | Description | +--------+ + + + + | 09/24/ | Hospital | [facility] | | | | 1993 | Encounter | MED CTR LABORATORY | | | | | | [address] | | | | | | [place] | | | | | | [address] | | | | | | [phone] | | | +--------+ + + + [...] | | | | | [place] | | | | | | [address] | | | | | | | | +--------+---------+ + + + documented as of this encounter Visit Diagnoses Not on filedocumented in this encounter"
--- OUTSIDE RECORDS SUMMARY | ~2019-10-11 | XMS | Encounter Summary ---
Demographics + + + | Address | [address] | | | [place] [address] | + + + | Home Phone [...] [place] | | | | | [address] | | + + + + + Care Team Providers + +------+ + | Care Manager Credit Collections Name | Role | Phone | + +------+ + | Natalee Andersen NP | PCP | | + +------+ + Encounter Details +--------+ + + + + | Date | Type | Department | Care Team | Description | +--------+ + + + + | 06/25/ | Hospital | [facility] | Latricia Feliciano | | | 2014 | Encounter | MED CTR ACUTE | D, [address] | | | | | PHYSICAL THERAPY | [place]FTALIE [place] | | | | | [address] | [address] | | | | | [place] [address] | | | | | | [phone] | | | +--------+ + + + [...] + + + +---------+ + + | [place]-3 Fatty | Take 1,000 mg by | [...] [place] | | | | | | [address] | | | | | | | | +--------+---------+ + + + documented as of this encounter Visit Diagnoses Not on filedocumented in this encounter"
--- OUTSIDE RECORDS SUMMARY | ~2019-10-11 | XMS | Encounter Summary ---
Demographics + + + | Address | [address] | | | [place] [address] | + + + | Home Phone [...] [place] | | | | | [address] | | + + + + + Care Team Providers + +------+ + | Care Funding Specialist Name | Role | Phone | [...] | | [address] | [place] [address] | | | | | [place], [place] | [phone] | | | | | [address] | | | | | | [phone] | | | +--------+ + + + [...] | | | | | [facility] | | | | | | [address] | | | | | | | | +--------+---------+ + + + documented as of this encounter Visit Diagnoses Not on filedocumented in this encounter"
--- OUTSIDE RECORDS SUMMARY | ~2019-10-11 | XMS | Encounter Summary ---
Demographics + + + | Address | [address] | | | [place] [address] | + + + | Home Phone [...] [place], [place] | | | | | [address] | | + + + + + Care Team Providers + +------+ + | Care Auto Parts Salesperson Name | Role | Phone | + +------+ + PCP | Unavailable | + +------+ + Encounter Details +--------+ + + + + | Date | Type | Department | Care Team | Description | +--------+ + + + + | 07/17/ | Hospital | [facility] | | | | 1997 | Encounter | MED CTR EMERGENCY | | | | | | [address] | | | | | | [place] | | | | | | [address] | | | | | | [phone] | | | +--------+ + + + [...] | | | | [place] | | | | | | [address] | | | | | | | | +--------+---------+ + + + documented as of this encounter Visit Diagnoses Not on filedocumented in this encounter"
--- OUTSIDE RECORDS SUMMARY | ~2019-10-11 | XMS | Clinical Summary ---
Demographics + + + | Address | [address] | | | [place] [address] | + + + | Home Phone [...] + | Author | [facility] (Historical as of | | | 06-09-19) | + + + | Organization | [facility] (Historical as of | | | [...] Providers + +------+ + | Care Design Assistant Name | Role | Phone [...] | | Activ | | (VITAMIN D3) [address] | a week. | | | | [...] + | T2DM (type 2 diabetes mellitus) ([facility]) | 04/13/2013 | + + [...] +------+-------+ + | MEDICARE | MEDICA | [id number] | | | [address] | | | RE | | | | [place] [address] | | | IP-OP | | | [...] Self | [birth year] | Home: | [address] | | | al/Fam | | 1955 | [phone] | [address] [place] | | | [place]onte | | | [phone] | + +--------+ +--------+ + +
--- OUTSIDE RECORDS SUMMARY | ~2019-10-11 | XMS | Encounter Summary ---
Demographics + + + | Address | [address] | | | [place] [address] | + + + | Home Phone [...] [place] | | | | | [address] | | + + + + + Care Team Providers + +------+ + | Care Lead Consultant Name | Role | Phone | [...] + + | 03/03/ | Telephone | [facility] | Baudilio Newman | Other (Results) | | 2014 | | NEUROLOGY LAURIE | MD Pollo Need updated | | | | | [address], | address | | | | | [address] [place] | | | | | | [place] [address] | | | | | | [phone] | | | +--------+ + + + [...] [place] | | | | | | [address] | | | | | | | | +--------+---------+ + + + documented as of this encounter Visit Diagnoses Not on filedocumented in this encounter"
--- OUTSIDE RECORDS SUMMARY | ~2019-10-11 | XMS | Encounter Summary ---
Demographics + + + | Address | [address] | | | [place] [address] | + + + | Home Phone [...] [place] | | | | | [address] | | + + + + + Care Team Providers + +------+ + | Care Tractor Crane Operator Name | Role | Phone [...] | Documentati | [facility] | aKtharine Moncada, | Other (urgent | | 2019 | on | CARDIOLOGY [place] | Technologist | report) | | | | [address] | | | | | | [place] | | | | | | [address] | | | | | | [phone] | | | +--------+ + + + [...] [place] | | | | | | [address] | | | | | | | | +--------+---------+ + + + documented as of this encounter Visit Diagnoses Not on filedocumented in this encounter"
--- OUTSIDE RECORDS SUMMARY | ~2019-10-11 | XMS | Encounter Summary ---
Demographics + + + | Address | [address] | | | [place] [address] | + + + | Home Phone [...] [place], [place] | | | | | [address] | | + + + + + Care Team Providers + +------+ + | Care Fish Net Maker Name | Role | Phone | [...] | | | | [address] | | | | | | [place] | | | | | | [address] | | | | | | [phone] | | | +--------+ + + + [...] | | | | | [place] | | | | | | [address] | | | | | | | | +--------+---------+ + + + documented as of this encounter Visit Diagnoses Not on filedocumented in this encounter"
--- OUTSIDE RECORDS SUMMARY | ~2019-10-11 | XMS | Encounter Summary ---
Demographics + + + | Address | [address] | | | [place] [address] | + + + | Home Phone [...] [place] | | | | | [address] | | + + + + + Care Team Providers + +------+ + | Care Principal Gifts Officer Name | Role | Phone | [...] | | | | | [address] | [place], [place] | | | | | [place], [place] | [address] | | | | | [address] | | | | | | [phone] | | | +--------+ + + + [...] [place] | | | | | | [address] | | | | | | | | +--------+---------+ + + + documented as of this encounter Visit Diagnoses Not on filedocumented in this encounter"
--- OUTSIDE RECORDS SUMMARY | ~2019-10-11 | XMS | Encounter Summary ---
Demographics + + + | Address | [address] [facility] [address] | | | [place] [address] | + + + | Home Phone [...] [place] | | | | | [address] | | + + + + + Care Team Providers + +------+ + | Care Skate Shop Attendant Name | Role | Phone | [...] [id number] | | | | | | [place], [place] | | | | | | [address] | | | | | | [phone] | | | +--------+ + + + [...] | + + + + + | [facility] | [address] | [place] [address] | | | PATHOLOGY | [address] [...] Re | | | | | | [phone] | | | | + + + + + + + + | Specimen | + + | | + + + + + + + | Performing | Address | City/State/Zipcode | Phone Number | | Organization | | | | + + + + + | [facility] | [address] | [place] [address] | | | PATHOLOGY | [address] [...] Re | | | | | | [phone] | | | | + + + + + + + + | Specimen | + + | | + + + + + + + | Performing | Address | City/State/Zipcode | Phone Number | | Organization | | | | + + + + + | [facility] | [address] | [place] [address] | | | PATHOLOGY | [address] [...] Re | | | | | | [phone] | | | | + + + + + + + + | Specimen | + + | | + + + + + + + | Performing | Address | City/State/Zipcode | Phone Number | | Organization | | | | + + + + + | [facility] | [address] | [place] [address] | | | PATHOLOGY | [address] [...] Re | | | | | | [phone] | | | | + + + + + + + + | Specimen | + + | | + + + + + + + | Performing | Address | City/State/Zipcode | Phone Number | | Organization | | | | + + + + + | [facility] | [address] | [place] [address] | | | PATHOLOGY | [address] | | | + + + + + documented in this encounter Visit Diagnoses Not on filedocumented in this encounter"
--- OUTSIDE RECORDS SUMMARY | ~2019-10-11 | XMS | Encounter Summary ---
Demographics + + + | Address | [address] | | | [place] [address] | + + + | Home Phone [...] [place], [place] | | | | | [address] | | + + + + + Care Team Providers + +------+ + | Care Bilingual Speech Language Pathologist Name | Role | Phone | + +------+ + PCP | Unavailable | + +------+ + Encounter Details +--------+ + + + + | Date | Type | Department | Care Team | Description | +--------+ + + + + | 02/22/ | Hospital | [facility] | | | | 1996 - | Encounter | MED CTR GENERIC PSY | | | | | | CONV DEPT [address] | | | | 02/26/ | | [place], | | | | 1996 | | [place] [address] | | | | | | [phone] | | | +--------+ + + + [...] [place] | | | | | | [address] | | | | | | | | +--------+---------+ + + + documented as of this encounter Visit Diagnoses Not on filedocumented in this encounter"
--- OUTSIDE RECORDS SUMMARY | ~2019-10-11 | XMS | Encounter Summary ---
Demographics + + + | Address | [address] | | | [place] [address] | + + + | Home Phone [...] [place], [place] | | | | | [address] | | + + + + + Care Team Providers + +------+ + | Care Numerical Tool Programmer Name | Role | Phone | + +------+ + PCP | Unavailable | + +------+ + Encounter Details +--------+ + + + + | Date | Type | Department | Care Team | Description | +--------+ + + + + | 05/29/ | Hospital | [facility] | | | | 1991 | Encounter | MED CTR LABORATORY | | | | | | [address] | | | | | | [place] | | | | | | [address] | | | | | | [phone] | | | +--------+ + + + [...] | | | | | [place] | | | | | | [address] | | | | | | | | +--------+---------+ + + + documented as of this encounter Visit Diagnoses Not on filedocumented in this encounter"
--- OUTSIDE RECORDS SUMMARY | ~2019-10-11 | XMS | Encounter Summary ---
Demographics + + + | Address | [address] | | | [place] [address] | + + + | Home Phone [...] [place] | | | | | [address] | | + + + + + Care Team Providers + +------+ + | Care Prosthetic Lab Technician Name | Role | Phone [...] [address] | [address] [place], [place] | | | | | [place], [place] | [id number] | | | | | [address] | | | | | | [phone] | | | +--------+ + + + [...] | | | | | [place] | | | | | | [address] | | | | | | | | +--------+---------+ + + + documented as of this encounter Visit Diagnoses Not on filedocumented in this encounter"
--- OUTSIDE RECORDS SUMMARY | ~2019-10-11 | XMS | Encounter Summary ---
Demographics + + + | Address | [address] | | | [place] [address] | + + + | Home Phone [...] [place] | | | | | [address] | | + + + + + Care Team Providers + +------+ + | Care Fisherman Helper Name | Role | Phone | [...] [address] | [address] [place], [place] | Anxiety; Anemia; | | | | [place], [place] | [address] | Irregular heartbeat; | | | | [address] | | Depression; | | | | [phone] | | Migraine; | | | | [...] [place] | | | | | | [address] | | | | | | | [...]
--- OUTSIDE RECORDS SUMMARY | ~2019-10-11 | XMS | Encounter Summary ---
Demographics + + + | Address | [address] | | | [place] [address] | + + + | Home Phone [...] [place] | | | | | [address] | | + + + + + Care Team Providers + +------+ + | Care Ergonomics Engineer Name | Role | Phone | [...] + | 03/03/ | Telephone | [facility] | Baudilio Newman | Other (Results) | | 2014 | | NEUROLOGY LAURIE | MD Pollo Need updated | | | | | [address], | address | | | | | [address] [place] | | | | | | [place] [address] | | | | | | [phone] | | | +--------+ + + + [...] [place] | | | | | | [address] | | | | | | | | +--------+---------+ + + + documented as of this encounter Visit Diagnoses Not on filedocumented in this encounter"
--- OUTSIDE RECORDS SUMMARY | ~2019-10-11 | XMS | Encounter Summary ---
Demographics + + + | Address | [address] | | | [place] [address] | + + + | Home Phone [...] [place] | | | | | [address] | | + + + + + Care Team Providers + +------+ + | Care Guest Services Manager Name | Role | Phone [...] + + | 08/14/ | Telephone | [facility] | Ashley Chávez | Other (Patient was | | 2019 | | CARDIOLOGY [place], [employer] | anxious about urgent | | | | [address] | | reports. ) | | | | [place] | | | | | | [address] | | | | | | [phone] | | | +--------+ + + + [...] [place] | | | | | | [address] | | | | | | | | +--------+---------+ + + + documented as of this encounter Visit Diagnoses Not on filedocumented in this encounter"
--- OUTSIDE RECORDS SUMMARY | ~2019-10-11 | XMS | Encounter Summary ---
Demographics + + + | Address | [address] | | | [place] [address] | + + + | Home Phone [...] [place] | | | | | [address] | | + + + + + Care Team Providers + +------+ + | Care Safe Deposit Attendant Name | Role | Phone | + +------+ + | Natalee Andersen NP | PCP | | + +------+ + Encounter Details +--------+ + + + + | Date | Type | Department | Care Team | Description | +--------+ + + + + | 06/25/ | Hospital | [facility] | Frandy Teresa, | Diabetes mellitus | | 2014 | Encounter | MED CTR OR INTRA OP | DO [address] | (HCC) (Primary Dx) | | | | [address] | [address] [place], [place] | | | | | [place], [place] | [address] | | | | | [address] | | | | | | [phone] | | | +--------+ + + + [...] + + + +---------+ + + | Chester-3 Fatty | Take 1,000 mg by | [...] [place] | | | | | | [id number] | | | | | | | [...] | | MEDICAL | | | | mL/min/[id number] than | | CENTER - | | [...] + | [facility] | [address] | [place], [place] | [phone] | | [facility] | | [address] | | | - LABORATORY | | | | + + + + + | [facility] | [address] | [place], [place] | | | [facility] | | [address] | | | - LABORATORY | | [...] + | [facility] | [address] | [place] | [phone] | | [facility] | | [address] | | | - LABORATORY | | | | + + + + + | [facility] | [address] | [place], [place] | | | [facility] | | [address] | | | - LABORATORY | | [...] [address] | [place] | [phone] | | [facility] | | [address] | | | - LABORATORY | | | | + + + + + | [facility] | [address] | [place] | | | [facility] | | [address] | | | - LABORATORY | | [...] ST. | [address] | [place] | | | [facility] | | [address] | | | - BLOOD BANK | [...] + | [facility] | [address] | [place] | [phone] | | [facility] | | [address] | | | - LABORATORY | | | | + + + + + | [facility] | [address] | [place], [place] | | | [facility] | | [address] | | | - LABORATORY | | [...]
--- OUTSIDE RECORDS SUMMARY | ~2019-10-11 | XMS | Encounter Summary ---
Demographics + + + | Address | [address] | | | [place] [address] | + + + | Home Phone [...] [place] | | | | | [address] | | + + + + + Care Team Providers + +------+ + | Care Heavy Duty Diesel Mechanic Name | Role | Phone | [...] [place] | | | | | | [address] | | | | | | [phone] | | | +--------+ + + + [...] [place] | | | | | | [address] | | | | | | | | +--------+---------+ + + + documented as of this encounter Visit Diagnoses Not on filedocumented in this encounter"
--- OUTSIDE RECORDS SUMMARY | ~2019-10-11 | XMS | Encounter Summary ---
Demographics + + + | Address | [address] | | | [place] [address] | + + + | Home Phone [...] [place] | | | | | [address] | | + + + + + Care Team Providers + +------+ + | Care Certified Home Health Aide Name | Role | Phone | [...] + + | 09/19/ | Telephone | [facility] | Ashley Chávez | Talia (Patient | | 2019 | | CARDIOLOGY [place] [facility] | calling to be seen | | | | [address] | | ) | | | | [place] | | | | | | [address] | | | | | | [phone] | | | +--------+ + + + [...] [place] | | | | | | [address] | | | | | | | | +--------+---------+ + + + documented as of this encounter Visit Diagnoses Not on filedocumented in this encounter"
--- OUTSIDE RECORDS SUMMARY | ~2019-10-11 | XMS | Encounter Summary ---
Demographics + + + | Address | [address] | | | [place] [address] | + + + | Home Phone [...] [place] | | | | | [address] | | + + + + + Care Team Providers + +------+ + | Care Product Tester Name | Role | Phone | [...] + | 09/10/ | Documentati | [facility] | Katharine Moncada, | Other (urgent | | 2019 | on | CARDIOLOGY [place] | Technologist | report) | | | | [address] | | | | | | [place] | | | | | | [address] | | | | | | [phone] | | | +--------+ + + + [...] [place] | | | | | | [address] | | | | | | | | +--------+---------+ + + + documented as of this encounter Visit Diagnoses Not on filedocumented in this encounter"
--- OUTSIDE RECORDS SUMMARY | ~2019-10-11 | XMS | Encounter Summary ---
Demographics + + + | Address | [address] | | | [place] [address] | + + + | Home Phone [...] [place] | | | | | [address] | | + + + + + Care Team Providers + +------+ + | Care Network Programmer Name | Role | Phone | [...] + + | 07/01/ | Telephone | [facility] | Frandy Teresa, | Other (Surgery ) | | 2013 | | NEUROSURGERY [address] | DO [address] | | | | | [address] | [address] [place], [place] | | | | | [place], [place] | [address] | | | | | [address] | | | | | | [phone] | | | +--------+ + + + [...] [place] | | | | | | [address] | | | | | | | | +--------+---------+ + + + documented as of this encounter Visit Diagnoses Not on filedocumented in this encounter"
--- OUTSIDE RECORDS SUMMARY | ~2019-10-11 | XMS | Encounter Summary ---
Demographics + + + | Address | [address] | | | [place] [address] | + + + | Home Phone [...] [place], [place] | | | | | [address] | | + + + + + Care Team Providers + +------+ + | Care Chemistry Department Chair Name | Role | Phone | + +------+ + PCP | Unavailable | + +------+ + Encounter Details +--------+ + + + + | Date | Type | Department | Care Team | Description | +--------+ + + + + | 12/06/ | Hospital | [facility] | | | | 1994 | Encounter | MED CTR LABORATORY | | | | | | [address] | | | | | | [place] | | | | | | [address] | | | | | | [phone] | | | +--------+ + + + [...] | | | | | [place] | | | | | | [address] | | | | | | | | +--------+---------+ + + + documented as of this encounter Visit Diagnoses Not on filedocumented in this encounter"
--- OUTSIDE RECORDS SUMMARY | ~2019-10-11 | XMS | Encounter Summary ---
Demographics + + + | Address | [address] | | | [place] [address] | + + + | Home Phone [...] Organization | [facility] | | | and [place] | + + + | Address | Unknown | + + + | Phone | Unavailable | + + + Support + + + + + | Name | Relationship | Address | Phone | + + + + + | Araceli Sibley | ECON | [place] | | | | | [address] | | + + + + + Care Team Providers + +------+ + | Care Head Control Clerk Name | Role | Phone [...] [place] | | | | | | [address] | | | | | | [phone] | | | +--------+ + + + [...] [place] | | | | | | [address] | | | | | | | | +--------+---------+ + + + documented as of this encounter Visit Diagnoses Not on filedocumented in this encounter"
--- OUTSIDE RECORDS SUMMARY | ~2019-10-11 | XMS | Encounter Summary ---
Demographics + + + | Address | [address] | | | [place] [address] | + + + | Home Phone [...] [place] | | | | | [address] | | + + + + + Care Team Providers + +------+ + | Care Animal Cruelty Investigator Name | Role | Phone | [...] [address] | [address] [place], [place] | Hypothyroidism; | | | | [place], [place] | [address] | GERD; BACK PAIN, | | | | [address] | | LUMBAR, WITH | | | | [phone] | | RADICULOPATHY; | | | | [...] [place] | | | | | | [address] | | | | | | | [...]
--- OUTSIDE RECORDS SUMMARY | ~2019-10-11 | XMS | Encounter Summary ---
Demographics + + + | Address | [address] | | | [place] [address] | + + + | Home Phone [...] [place], [place] | | | | | [address] | | + + + + + Care Team Providers + +------+ + | Care Human Resources Communications Manager Name | Role | Phone | + +------+ + PCP | Unavailable | + +------+ + Encounter Details +--------+ + + + + | Date | Type | Department | Care Team | Description | +--------+ + + + + | 01/16/ | Hospital | [facility] | | | | 2002 | Encounter | MED CTR XRAY [address] | | | | | | [address] | | | | | | [place] [address] | | | | | | [phone] | | | +--------+ + + + [...] | | | | [place] | | | | | | [address] | | | | | | | | +--------+---------+ + + + documented as of this encounter Visit Diagnoses Not on filedocumented in this encounter"
--- OUTSIDE RECORDS SUMMARY | ~2019-10-11 | XMS | Encounter Summary ---
Demographics + + + | Address | [address] | | | [place] [address] | + + + | Home Phone [...] [place] | | | | | [address] | | + + + + + Care Team Providers + +------+ + | Care Tester Sound Name | Role | Phone | + [...] + + | 08/08/ | Telephone | [facility] | Ashley Chávez | Other (Questions | | 2019 | | CARDIOLOGY [place] | Pollo, Firestopper Technician | about coverage. ) | | | | [address] | | | | | | [place] | | | | | | [address] | | | | | | [phone] | | | +--------+ + + + [...] | | | | | | [place] | | | | | | [address] | | | | | | | | +--------+---------+ + + + documented as of this encounter Visit Diagnoses Not on filedocumented in this encounter"
--- OUTSIDE RECORDS SUMMARY | ~2019-10-11 | XMS | Encounter Summary ---
Demographics + + + | Address | [address] | | | [place] [address] | + + + | Home Phone [...] [place] | | | | | [address] | | + + + + + Care Team Providers + +------+ + | Care Welding Machine Operator Ultrasonic Name | Role | Phone | + [...] + | 08/16/ | Documentati | [facility] | Katharine Moncada, | Other (urgent | | 2019 | on | CARDIOLOGY [place] | Technologist | report) | | | | [address] | | | | | | [place] | | | | | | [address] | | | | | | [phone] | | | +--------+ + + + [...]
--- OUTSIDE RECORDS SUMMARY | ~2019-10-11 | XMS | Encounter Summary ---
Demographics + + + | Address | [address] | | | [place] [address] | + + + | Home Phone [...] [place] | | | | | [address] | | + + + + + Care Team Providers + +------+ + | Care Silk Crepe Machine Operator Name | Role | Phone [...] + | 06/20/ | Telephone | [facility] | Frandy Teresa, | Other (surgery | | 2013 | | NEUROSURGERY [address] | DO [address] | reminder ) | | | | [address] | [address] [place], [place] | | | | | [place], [place] | [address] | | | | | [address] | | | | | | [phone] | | | +--------+ + + + [...] | | | | | [place] | | | | | | [address] | | | | | | | | +--------+---------+ + + + documented as of this encounter Visit Diagnoses Not on filedocumented in this encounter"
--- OUTSIDE RECORDS SUMMARY | ~2019-10-11 | XMS | Encounter Summary ---
Demographics + + + | Address | [address] | | | [place] [address] | + + + | Home Phone [...] [place] | | | | | [address] | | + + + + + Care Team Providers + +------+ + | Care Biofuels Plant Superintendent Name | Role | Phone | [...] + + | 02/26/ | Emergency | [facility] | [place], | CVA (cerebral | | 2015 | | MED CTR EMERGENCY | Davey Simons MD [address] | vascular accident) | | | | CENTER [address] | [address] [facility] | ([facility]) (Primary Dx) | | | | [place], [place] | [place] [address] | | | | | [address] | [phone] | | | | | [phone] | | | +--------+ + + + [...] + + + +---------+ + + | Industry-3 Fatty | Take 1,000 mg by | [...] | | | | | [place] | | | | | | [address] | | | | | | | [...] | | MEDICAL | | | | mL/min/[id number] than | | CENTER - | | [...] | 9.1 | 8.3 - 10.5 | [facility] | | | | | [...] [address] | [place] | [phone] | | [facility] | | [address] | | | - LABORATORY | | [...] [address] | [place] | [phone] | | [facility] | | [address] | | | - LABORATORY | | [...] | ---- | | | 02/26/2015 13:10 [facility] | | | Emergency -numbness/facial droop 02/26/2015 08:15 [facility] | | | [facility] 02/19/2015 | | | 10:15 [facility] | | [...] as uncontrolled 02/17/2015 | | | 08:22 [facility] Emergency | | | [...] and uterus 02/14/2015 | | | 09:56 [facility] Emergency | | | [...] residual deficits | | | 02/01/2015 21:38 [facility] | | | Emergency 01/22/2015 14:00 [facility] | | | Urgent Care [...] intervertebral disc | | | 01/16/2015 12:15 [facility] | | | Urgent Care [...] other | | | medications 01/07/2015 11:45 [facility] | | | Urgent Care [...] acquired hypothyroidism 12/30/2014 | | | 17:54 [facility] Emergency | | | -Obstructive [...] essential hypertension | | | 12/30/2014 14:30 [facility] | | | Urgent Care [...] | | -Cramp of limb 11/29/2014 16:15 [facility] | | | Urgent Care [...] ------ | | | --------- [address] | | | [facility] [address] [facility] [facility] [address] | | | [facility] 7 0 Total | | [...]
--- OUTSIDE RECORDS SUMMARY | ~2019-10-11 | XMS | Encounter Summary ---
Demographics + + + | Address | [address] | | | [place] [address] | + + + | Home Phone [...] [place] | | | | | [address] | | + + + + + Care Team Providers + +------+ + | Care Insulation Mechanic Name | Role | Phone | [...] + + | 04/30/ | Office | [facility] | Russell Alfaro PA | ROGERS on CPAP (Primary | | 2015 | Visit | SLEEP DISORDER [address] | [address] | Dx) | | | | [address] | [place] | | | | | [place] [address] | [address] | | | | | [phone] | | | +--------+---------+ + + + [...] Insomnia Severity Index Insomnia Severity Index 13 Pittsburgh Sleepiness Scale Sitting and reading 3 Watching [...] nasal obtained from: [facility] [place] pressure: 11-20 cm Median: 12.1 cm 95%: [...] appro priate paperwork. Thirty minutes were spent necv-ox-tdlz, with the majority of time spent i [...] | | | | | [place], [place] | | | | | | [id number] | | | | | | | | +--------+---------+ + + + documented as of this encounter Visit Diagnoses + + | Diagnosis | + + | ROGERS on CPAP - Primary Obstructive sleep apnea (adult) (pediatric) | + + documented in this encounter"
--- OUTSIDE RECORDS SUMMARY | ~2019-10-11 | XMS | Encounter Summary ---
Demographics + + + | Address | [address] | | | [place] [address] | + + + | Home Phone [...] [place] | | | | | [address] | | + + + + + Care Team Providers + +------+ + | Care Cattle Farmer Name | Role | Phone [...] [place] | | | | | | [address] | | | | | | [phone] | | | +--------+ + + + [...] [place] | | | | | | [address] | | | | | | | | +--------+---------+ + + + documented as of this encounter Visit Diagnoses Not on filedocumented in this encounter"
--- OUTSIDE RECORDS SUMMARY | ~2019-10-11 | XMS | Encounter Summary ---
Demographics + + + | Address | [address] | | | [place] [address] | + + + | Home Phone [...] [place] | | | | | [address] | | + + + + + Care Team Providers + +------+ + | Care Package Delivery Room Service Runner Name | Role | Phone | + +------+ + | Natalee Andersen NP | PCP | | + +------+ + Encounter Details +--------+---------+ + + + | Date | Type | Department | Care Team | Description | +--------+---------+ + + + | 06/25/ | Surgery | [facility] | Frandy Teresa, | Canceled | | 2013 | | MED CTR OR INTRA OP | DO [address] | PROCEDURE NOT | | | | [address] | [address] [place], [place] | PERFORMED | | | | [place], [place] | [address] | | | | | [address] | | | | | | [phone] | | | +--------+---------+ + + + [...] + + + +---------+ + + | [place]-3 Fatty | Take 1,000 mg by | [...] | | | | | [place], [place] | | | | | | [id number] | | | | | | | [...] mL/min/1.73m2 | [facility] | | | [place] | RATE,ESTIMATED | | MEDICAL | | | | mL/min/1.29y4Syqq than | | CENTER - | | [...] + | [facility] | [address] | [place] | [phone] | | [facility] | | [address] | | | - LABORATORY | | | | + + + + + | [facility] | [address] | [place] | | | [facility] | | [address] | | | - LABORATORY | | [...] + | [facility] | [address] | [place] | [phone] | | [facility] | | [address] | | | - LABORATORY | | | | + + + + + | [facility] | [address] | [place] | | | [facility] | | [address] | | | - LABORATORY | | [...] [address] | [place] | [phone] | | [facility] | | [address] | | | - LABORATORY | | | | + + + + + | [facility] | [address] | [place], [place] | | | [facility] | | [address] | | | - LABORATORY | | [...] | | [facility] | | [address] | | | - BLOOD BANK | [...] + | [facility] | [address] | [place], [place] | [phone] | | [facility] | | [address] | | | - LABORATORY | | | | + + + + + | [facility] | [address] | [place], [place] | | | [facility] | | [address] | | | - LABORATORY | | [...]
--- OUTSIDE RECORDS SUMMARY | ~2019-10-11 | XMS | Encounter Summary ---
Demographics + + + | Address | [address] | | | [place] [address] | + + + | Home Phone [...] [place], [place] | | | | | [address] | | + + + + + Care Team Providers + +------+ + | Care Toolroom Checker Name | Role | Phone | + +------+ + PCP | Unavailable | + +------+ + Encounter Details +--------+ + + + + | Date | Type | Department | Care Team | Description | +--------+ + + + + | 02/16/ | Hospital | [facility] | | | | 1994 | Encounter | MED CTR LABORATORY | | | | | | [address] | | | | | | [place] | | | | | | [address] | | | | | | [phone] | | | +--------+ + + + [...] | | | | | [place] | | | | | | [address] | | | | | | | | +--------+---------+ + + + documented as of this encounter Visit Diagnoses Not on filedocumented in this encounter"
--- OUTSIDE RECORDS SUMMARY | ~2019-10-11 | XMS | Encounter Summary ---
Demographics + + + | Address | [address] | | | [place] [address] | + + + | Home Phone [...] [place] | | | | | [address] | | + + + + + Care Team Providers + +------+ + | Care Pre Fabricator Name | Role | Phone | [...] [address] | | | | | [place], [place] | Shaheen Simons | | | | | [address] | [place] [address] | | | | | [phone] | [phone] | | | | | | | [...] [place] | | | | | | [address] | | | | | | | [...] GIVEN Testing | | | performed at [facility];[address] [place] [address] CULTURE | | | 50,000 TO 100,000 CFU/ML | | | MIXED GRAM POSITIVE HAIDER NO SUSCEPTIBILITY TO FOLLOW | | | MULTIPLE ORGANISM TYPES PRESENT, | | | SUGGESTIVE OF CONTAMINATION OR COLONIZATION. SUGGEST RECOLLECTION FOR | | | CULTURE. Testing | | | performed at [facility];[address] [place] [address];[place] [address] REPORT | | | STATUS 06/08/2012 FINAL [...]
--- OUTSIDE RECORDS SUMMARY | ~2019-10-11 | XMS | Encounter Summary ---
Demographics + + + | Address | [address] | | | [place] [address] | + + + | Home Phone [...] [place] | | | | | [address] | | + + + + + Care Team Providers + +------+ + | Care Unix Consultant Name | Role | Phone | [...] [address] | [address] [place], [place] | | | | | [place], [place] | [id number] | | | | | [address] | | | | | | [phone] | | | +--------+ + + + [...] | 04/10/ | Office | Cardiology | Dseiree Peterson DO | | | 2019 | Visit | | [address] | | | | | | [place] | | | | | | [address] | | | | | | | | +--------+---------+ + + + documented as of this encounter Visit Diagnoses Not on filedocumented in this encounter"
--- OUTSIDE RECORDS SUMMARY | ~2019-10-11 | XMS | Encounter Summary ---
Demographics + + + | Address | [address] | | | [place] [address] | + + + | Home Phone [...] [place] | | | | | [address] | | + + + + + Care Team Providers + +------+ + | Care Print Line Inspector Name | Role | Phone | [...] [address] | [address] [place], [place] | | | | | [place], [place] | [id number] | | | | | [address] | | | | | | [phone] | | | +--------+ + + + [...] | | | | | [place] | | | | | | [address] | | | | | | | | +--------+---------+ + + + documented as of this encounter Visit Diagnoses Not on filedocumented in this encounter"
--- OUTSIDE RECORDS SUMMARY | ~2019-10-11 | XMS | Encounter Summary ---
Demographics + + + | Address | [address] | | | [place] [address] | + + + | Home Phone [...] [place] | | | | | [address] | | + + + + + Care Team Providers + +------+ + | Care Mortgage Loan Closer Name | Role | Phone | [...] + | 12/03/ | Refill | [facility] | Frandy Teresa, | Medication Refill | | 2014 | | [address] | DO [address] | | | | | [address] | [address] [place], [place] | | | | | [place], [place] | [id number] | | | | | [address] | | | | | | [phone] | | | +--------+--------+ + + + [...] | | | | | [place] | | | | | | [address] | | | | | | | | +--------+---------+ + + + documented as of this encounter Visit Diagnoses Not on filedocumented in this encounter"
--- OUTSIDE RECORDS SUMMARY | ~2019-10-11 | XMS | Encounter Summary ---
Demographics + + + | Address | [address] | | | [place] [address] | + + + | Home Phone [...] [place] | | | | | [address] | | + + + + + Care Team Providers + +------+ + | Care Customer Service Sales Associate Name | Role | Phone [...] [address] | [address] [place], [place] | | | | | [place], [place] | [id number] | | | | | [address] | | | | | | [phone] | | | +--------+ + + + [...] | | | | | [place] | | | | | | [address] | | | | | | | | +--------+---------+ + + + documented as of this encounter Visit Diagnoses Not on filedocumented in this encounter"
--- OUTSIDE RECORDS SUMMARY | ~2019-10-11 | XMS | Encounter Summary ---
Demographics + + + | Address | [address] | | | [place] [address] | + + + | Home Phone [...] [place] | | | | | [address] | | + + + + + Care Team Providers + +------+ + | Care Car Cleaning Supervisor Name | Role | Phone | + +------+ + | Natalee Andersen NP | PCP | | + +------+ + Encounter Details +--------+ + + + + | Date | Type | Department | Care Team | Description | +--------+ + + + + | 06/26/ | Hospital | [facility] | Heather Cordero PT | | | 2014 | Encounter | MED CTR ACUTE | [address] | | | | | PHYSICAL THERAPY | [place] | | | | | [address] [place] | [address] | | | | | [place] [address] | | | | | | [phone] | | | +--------+ + + + [...] [place] | | | | | | [address] | | | | | | | | +--------+---------+ + + + documented as of this encounter Visit Diagnoses Not on filedocumented in this encounter"
--- OUTSIDE RECORDS SUMMARY | ~2019-10-11 | XMS | Encounter Summary ---
Demographics + + + | Address | [address] | | | [place] [address] | + + + | Home Phone [...] [place] | | | | | [address] | | + + + + + Care Team Providers + +------+ + | Care Foundation Relations Director Name | Role | Phone [...] + + | 02/01/ | Telephone | [facility] | Frandy Teresa, | Imaging Only | | 2019 | | NE[address] | DO [address] | | | | | [address] | [address] [place], [place] | | | | | [place], [place] | [address] | | | | | [address] | | | | | | [phone] | | | +--------+ + + + [...] [place] | | | | | | [address] | | | | | | | | +--------+---------+ + + + documented as of this encounter Visit Diagnoses Not on filedocumented in this encounter"
--- OUTSIDE RECORDS SUMMARY | ~2019-10-11 | XMS | Encounter Summary ---
Demographics + + + | Address | [address] | | | [place] [address] | + + + | Home Phone [...] [place], [place] | | | | | [address] | | + + + + + Care Team Providers + +------+ + | Care Reference Test Clerk Name | Role | Phone | + +------+ + PCP | Unavailable | + +------+ + Encounter Details +--------+ + + + + | Date | Type | Department | Care Team | Description | +--------+ + + + + | 12/27/ | Hospital | [facility] | | | | 1995 | Encounter | MED CTR LABORATORY | | | | | | [address] | | | | | | [place] | | | | | | [address] | | | | | | [phone] | | | +--------+ + + + [...] | | | | | [place] | | | | | | [address] | | | | | | | | +--------+---------+ + + + documented as of this encounter Visit Diagnoses Not on filedocumented in this encounter"
--- OUTSIDE RECORDS SUMMARY | ~2019-10-11 | XMS | Encounter Summary ---
Demographics + + + | Address | [address] | | | [place] [address] | + + + | Home Phone [...] [place], [place] | | | | | [address] | | + + + + + Care Team Providers + +------+ + | Care Highway Maintainer Name | Role | Phone | + +------+ + PCP | Unavailable | + +------+ + Encounter Details +--------+ + + + + | Date | Type | Department | Care Team | Description | +--------+ + + + + | 05/23/ | Hospital | [facility] | Dale, Heath E A, | | | 2012 | Encounter | MED CTR XRAY [address] | MD [address] | | | | | [place] | [place] | | | | | [place] [address] | [address] | | | | | [phone] | | | +--------+ + + + [...] [place] | | | | | | [address] | | | | | | | [...] Performed At | + + + | [facility] Diagnostic Imaging Department | [facility] | | [address] [facility] | [facility] | | LUMBAR SPINE MR WITHOUT CONTRAST, [...] Date/Time: | | | 05/23/2012 16:55 Assistant Manager Retail: <Electronically Signed | | | by Adriano Anne MD> 05/23/12 6025 | | + + + + + | Procedure Note | + + | Manohar Martinez Conversion - 11/30/2013 5:47 PM [facility] | | Diagnostic Imaging Department [address] [place] | | LUMBAR SPINE MR WITHOUT CONTRAST, [...] | |Transcribed Date/Time: 05/23/2012 16:55 | |Assistant Manager Retail: | |<Electronically Signed by Adriano Anne MD> [...]
--- OUTSIDE RECORDS SUMMARY | ~2019-10-11 | XMS | Encounter Summary ---
Demographics + + + | Address | [address] | | | [place] [address] | + + + | Home Phone [...] [place] | | | | | [address] | | + + + + + Care Team Providers + +------+ + | Care Film Process Operator Name | Role | Phone [...] Closed | | Radiology | Diagnoses | [place], | | | | | | Thoracic or | Natalee L, | | | | | | lumbosacral | [address] | | | | | | neuritis or | [address] | | | | | | | [address] | | | | | | radiculitis, | [place], | | | | | | unspecified | [place] [address] | | | | | | | Phone: | | | | | | Degeneration | [phone] | | | | | | of lumbar | Fax: | | | | | | or | [phone] | | | | | | lumbosacral [...] [facility] | Natalee Andersen | Thoracic or | | 2013 | Encounter | MED CTR MRI [address] | L, [address] | lumbosacral neuritis | | | | [place], | [address] | or radiculitis, | | | | [place] [address] | [place] [address] | unspecified; | | | | [phone] | [phone] | Degeneration of | | | | [...] | | | | | [facility] | | | | | | [address] | | | | | | | [...] + | MISCELLANEOUS LAB | | | [phone] | + +---------+ + + | MISCELANIOUS LAB | | | [phone] | + +---------+ + + documented in this encounter Visit Diagnoses + + | Diagnosis | + + | Thoracic or lumbosacral neuritis or radiculitis, unspecified | + + | Degeneration of lumbar or lumbosacral intervertebral disc | + + documented in this encounter"
--- OUTSIDE RECORDS SUMMARY | ~2019-10-11 | XMS | Encounter Summary ---
Demographics + + + | Address | [address] | | | [place] [address] | + + + | Home Phone [...] [place] | | | | | [address] | | + + + + + Care Team Providers + +------+ + | Care Artificial Flower Maker Name | Role | Phone | [...] | | | | | mellitus, | [address] | [place] | | | | | controlled | Phone: | [phone] | | | | | (HCC) | [phone] | Phone: | | | | | History of | Fax: | [phone] | | | | | gastric | [phone] | Fax: | | | | | restrictive | | [phone] | | | | | surgery | [...] Required | | hypertension | [address] [facility] [address] | | | | | Lumbar | AVE [place] | [address] | | | | | radiculopath | [place], [place] | AVE | | | | | y Type 2 | [address] | [place] | | | | | diabetes | Phone: | [address] | | | | | mellitus, | [phone] | Phone: | | | | | controlled | Fax: | [phone] | | | | | (HCC) | [phone] | Fax: | | | | | Obesity, | | [phone] | | | | | Class III, [...] | | [facility] & Katharine BUCIO in [place]. | + + + | Other | [...] + + | 03/06/ | Office | [facility] | Katharine Cardona PA-C | Hypothyroidism due | | 2014 | Visit | MEDICINE [address] | [address] [facility] | to acquired atrophy | | | | Street [place] | [place] [address] | of thyroid (Primary | | | | [place] [address] | [phone] | Dx); Essential | | | | [phone] | | hypertension; Iron | | | [...] | | ([facility]); Environmental | | | | | | [...] obesity) ([facility]); | | | | | | Type 2 diabetes | | | | | | mellitus, controlled | | | | | | ([facility]); Preventative | | | | | | [...] t be different from the original. Ask [facility] if they think it might be helpful [...] Cont your meds as prescribed. F/U with [facility] as scheduled Neuropathy Continue gabapentin. May consider increase if pain is not controlled. May benefit from switching from Paxil to one of the SNRIs or TCAs for analgesic effects, holly manju, she is doing so well on her current regimen it may not be worth making any changes an d find alternate ways to deal with the pain. Would be worth discussing with [facility] Psych Back Pain Will refer to water therapy (aqua fitness) at [facility] as request ed. ROGERS [...] 4. Schizoaffective disorder, bipolar type ([facility]) 5. Neuropathy Vitamin B-12 6. BACK PAIN, LUMBAR, WITH RADICULOPATHY Ambulatory referral to Physical Therapy 7. ROGERS on CPAP 8. Stroke ([facility]) 9. Environmental and seasonal allergies fluticasone (FLONASE) 50 mcg/nasal spray 10. Gastroesophageal reflux disease without esophagitis dexlansoprazole (DEXILANT) 60 mg D R capsule 11. History of gastric restrictive surgery Vitamin D, 25-Hydroxy Nutrition Services - External - AMB Referral 12. Obesity, Class III, BMI 40-49.9 (morbid obesity) ([facility]) Ambulatory referral to Physical Therapy Nutrition Services - External - AMB Referral 13. Type 2 diabetes mellitus, controlled ([facility]) Ambulatory referral to Physical Therapy Nutrition Services [...] Cont your meds as prescribed. F/U with [facility] as scheduled Neuropathy Continue gabapentin. May consider [...] the pain. Would be worth discussing with [facility] professional. Back Pain Will refer to water therapy (aqua fitness) at [facility] as request ed. Cont home exercise, [...] plan. The above note was dictated using eduClipper voice recognition software. It may have not been proofread in entirety. Minor errors in grammar may occur. CHIEF COMPLAINT Chief Complaint Patient presents with Establish Care Presents to establish care. Former patient of [facility]e [facility] in [place]. Other Possible stroke January 2015. Is now [...] auditory, at 36. She worked as an [employer] prior to her psychotic break. She is now very well controlled on Saphris, Depakote, and Paxi l. She is followed by [facility] in [place]. She has DM2 that is well controlled [...] worked up by steve rowe, Dr [place], [place]. More recently, she presented to ED with [...] Laterality: N/A; Surgeon: Frandy castellanos DO; Location: [facility] MAIN OR SOCIAL HISTORY History Social History [...] mg by mouth Daily. Cholecalciferol (VITAMIN D-3) 93964 units CAPS Oral Take 50,000 Units by [...] Oral Take 10 mg by mouth nightly. Arcanum-3 Fatty Acids (FISH OIL CONCENTRATE) 1000 MG [...] [place] | | | | | | [address] | | | | | | | [...] | | | | controlled ([facility]) | | | | | | Obesity, Class III, | | | | | | BMI 40-49.9 (morbid | | | | | | obesity) ([facility]) | | + + +--------+ + + | Nutrition Services - | Outpatient | Routin | Iron deficiency | Ordered: 03/06/2015 | | External - AMB | Referral | e | anemia Type 2 | | | Referral | | | diabetes mellitus, | | | | | | controlled ([facility]) | | | | | | History of gastric | | | | | | restrictive surgery | | | | | | Obesity, Class III, | | | | | | BMI 40-49.9 (morbid | | | | | | obesity) ([facility]) | | + + +--------+ + + [...] 12 | 7 - 18 mg/dL | [facility] | | | | | | [facility] | | | | | | MEDICAL | | | | | | CENTER - | | | | | | LABORATORY | | + + + + + + | Creatinine | 0.66 | 0.60 - 1.30 | [facility] | | | | | mg/dL | [facility] | | | | | | MEDICAL | | | | | | CENTER - | | | | | | LABORATORY | | + + + + + + | eGFR if not | >60Comment: GLOMERULAR | >=60 | [facility] | | | | FILTRATION | mL/min/1.73m2 | [facility] | | | [place] | RATE,ESTIMATED | | MEDICAL | | | | mL/min/1.96a7Axou than | | CENTER - | | [...] [address] | [place] | [phone] | | [facility] | | [address] | | | - LABORATORY | | [...] Type 2 diabetes mellitus, controlled ([facility]) Type II or unspecified type diabetes | | mellitus without mention of complication, not stated as uncontrolled | + + | Preventative health care Routine general medical examination at a health care | | facility | + + documented in this encounter
--- OUTSIDE RECORDS SUMMARY | ~2019-10-11 | XMS | Encounter Summary ---
Demographics + + + | Address | [address] | | | [place] [address] | + + + | Home Phone [...] [place], [place] | | | | | [address] | | + + + + + Care Team Providers + +------+ + | Care Milk Deliverer Name | Role | Phone | + +------+ + PCP | Unavailable | + +------+ + Encounter Details +--------+ + + + + | Date | Type | Department | Care Team | Description | +--------+ + + + + | 07/23/ | Hospital | [facility] | | | | 1992 - | Encounter | MED CTR GENERIC PSY | | | | | | CONV DEPT [address] | | | | 07/28/ | | [place], | | | | 1992 | | [place] [address] | | | | | | [phone] | | | +--------+ + + + [...] [place] | | | | | | [address] | | | | | | | | +--------+---------+ + + + documented as of this encounter Visit Diagnoses Not on filedocumented in this encounter"
--- OUTSIDE RECORDS SUMMARY | ~2019-10-11 | XMS | Encounter Summary ---
Demographics + + + | Address | [address] | | | [place] [address] | + + + | Home Phone [...] [place] | | | | | [address] | | + + + + + Care Team Providers + +------+ + | Care Assembler Tester Name | Role | Phone | [...] + + | 07/10/ | Telephone | [facility] | Frandy Teresa, | Imaging Only (1 year | | 2014 | | NEUR[address]UR[address] | DO [address] | x-ray ) | | | | [address] | [address] [place], [place] | | | | | [place], [place] | [id number] | | | | | [address] | | | | | | [phone] | | | +--------+ + + + [...] [place] | | | | | | [address] | | | | | | | | +--------+---------+ + + + documented as of this encounter Visit Diagnoses Not on filedocumented in this encounter"
--- OUTSIDE RECORDS SUMMARY | ~2019-10-11 | XMS | Encounter Summary ---
Demographics + + + | Address | [address] | | | [place] [address] | + + + | Home Phone [...] [place] | | | | | [address] | | + + + + + Care Team Providers + +------+ + | Care Privacy Manager Name | Role | Phone | + +------+ + | Basim Bolanos MD | PCP | | + +------+ + Encounter Details +--------+ + + + + | Date | Type | Department | Care Team | Description | +--------+ + + + + | 03/01/ | Abstract | [facility] [place] | [facility], | | | 2012 | | GASTROENTEROLOGY | [place]O [address] | | | | | [address] [place] | [place] | | | | | [address] [place], [place] | [place], [place] | | | | | [address] | [address] | | | | | [phone] | | | +--------+ + + + [...] [place] | | | | | | [address] | | | | | | | | +--------+---------+ + + + documented as of this encounter Visit Diagnoses Not on filedocumented in this encounter"
--- OUTSIDE RECORDS SUMMARY | ~2019-10-11 | XMS | Encounter Summary ---
Demographics + + + | Address | [address] | | | [place] [address] | + + + | Home Phone [...] [place] | | | | | [address] | | + + + + + [...] [address] | [address] [place], [place] | | | | | [place], [place] | [id number] | | | | | [address] | | | | | | [phone] | | | +--------+ + + + [...] | | | | | [place] | | | | | | [address] | | | | | | | | +--------+---------+ + + + documented as of this encounter Visit Diagnoses Not on filedocumented in this encounter"
--- OUTSIDE RECORDS SUMMARY | ~2019-10-11 | XMS | Encounter Summary ---
Demographics + + + | Address | [address] | | | [place] [address] | + + + | Home Phone [...] [place] | | | | | [address] | | + + + + + Care Team Providers + +------+ + | Care First Aid Attendant Name | Role | Phone | [...] + | 11/25/ | Telephone | [facility] | Frandy Teresa, | Medication Refill | | 2015 | | NE[address] | DO [address] | Assistance | | | | [address] | [address] [place], [place] | | | | | [place], [place] | [address] | | | | | [address] | | | | | | [phone] | | | +--------+ + + + [...] | | | | | [address] [place] | | | | | | [address] | | | | | | | | +--------+---------+ + + + documented as of this encounter Visit Diagnoses Not on filedocumented in this encounter"
--- OUTSIDE RECORDS SUMMARY | ~2019-10-11 | XMS | Encounter Summary ---
Demographics + + + | Address | [address] | | | [place] [address] | + + + | Home Phone [...] [place] | | | | | [address] | | + + + + + Care Team Providers + +------+ + | Care Movie Critic Name | Role | Phone | + [...] + + | 10/04/ | Office | [facility] | Desiree Peterson DO | ROGERS on CPAP (Primary | | 2019 | Visit | CARDIOLOGY [place] | [address] | Dx); Morbid obesity | | | | [address] | [place], [place] | (HCC); Benign | | | | [address] | [id number] | essential HTN; | | | | [place], [place] | | Atrial fibrillation, | | | | [address] | | unspecified type | | | | [phone] | | ([facility]) | +--------+---------+ + + [...] Peterson DO - 10/04/2019 11:[address] [...] rtake in exercise. She recently got a ChiImmuneXciteua and has been walking him more regularly. [...] by mouth daily. Blood Glucose Monitoring Suppl (Snapshot InteractiveIO FLEX SYSTEM) w/Device KIT by Does not ap ply route. budesonide-formoterol (SYMBICORT) 160-4.5 MCG/ACT inhaler Inhale 2 puffs into the lungs 2 (two) times daily. Calcium Carbonate Antacid 1000 MG tablet Take 1,000 mg by mouth 3 (three) times daily. Cholecalciferol (VITAMIN D3) 02833 units CAPS Take by mouth once a [...] [place] | | | | | | [phone] | | | | | | | [...]
--- OUTSIDE RECORDS SUMMARY | ~2019-10-11 | XMS | Encounter Summary ---
Demographics + + + | Address | [address] | | | [place] [address] | + + + | Home Phone [...] [place] | | | | | [address] | | + + + + + Care Team Providers + +------+ + | Care Forger Helper Name | Role | Phone | [...] + | 09/26/ | Refill | [facility] | Frandy Teresa, | Medication Refill | | 2013 | | NEUROSURGERY [address] | DO [address] | | | | | [address] | [place] [address] [place], [place] | | | | | [place], [place] | [id number] | | | | | [address] | | | | | | [phone] | | | +--------+--------+ + + + [...] | | | | | [place] | | | | | | [address] | | | | | | | | +--------+---------+ + + + documented as of this encounter Visit Diagnoses Not on filedocumented in this encounter"
--- OUTSIDE RECORDS SUMMARY | ~2019-10-11 | XMS | Encounter Summary ---
Demographics + + + | Address | [address] | | | [place] [address] | + + + | Home Phone [...] [place] | | | | | [address] | | + + + + + Care Team Providers + +------+ + | Care Talent Solutions Manager Name | Role | Phone | + +------+ + | Basim Bolanos MD | PCP | | + +------+ + Encounter Details +--------+ + + + + | Date | Type | Department | Care Team | Description | +--------+ + + + + | 04/18/ | Abstract | [facility] [place] | [facility], | | | 2012 | | GASTROENTEROLOGY | FORTUNATO Thomas [address] | | | | | [address] [place] | [place], [address] | | | | | [address] [place], [place] | [place], [place] | | | | | [address] | [address] | | | | | [phone] | | | +--------+ + + + [...] | | | | | [place] | | | | | | [address] | | | | | | | | +--------+---------+ + + + documented as of this encounter Visit Diagnoses Not on filedocumented in this encounter"
--- OUTSIDE RECORDS SUMMARY | ~2019-10-11 | XMS | Encounter Summary ---
Demographics + + + | Address | [address] | | | [place] [address] | + + + | Home Phone [...] [place] | | | | | [address] | | + + + + + Care Team Providers + +------+ + | Care Vegetable Picker Name | Role | Phone | [...] | [address] [place] | [place], [address] | | | | | [address] [place], [place] | [place], [place] | | | | | [address] | [address] | | | | | [phone] | | | +--------+ + + + [...] [place] | | | | | | [address] | | | | | | | | +--------+---------+ + + + documented as of this encounter Visit Diagnoses Not on filedocumented in this encounter"
--- OUTSIDE RECORDS SUMMARY | ~2019-10-11 | XMS | Encounter Summary ---
Demographics + + + | Address | [address] | | | [place] [address] | + + + | Home Phone [...] [place], [place] | | | | | [address] | | + + + + + Care Team Providers + +------+ + | Care Roll Finisher Name | Role | Phone | + +------+ + PCP | Unavailable | + +------+ + Encounter Details +--------+ + + + + | Date | Type | Department | Care Team | Description | +--------+ + + + + | 12/09/ | Hospital | [facility] | Serafin Bautista | | | 2012 | Encounter | MED CTR XRAY [address] | T, MD [address] | | | | | [place] | ST [place], [place] | | | | | [place] [address] | [address] | | | | | [phone] | | | +--------+ + + + [...] [place] | | | | | | [address] | | | | | | | [...] Performed At | + + + | [facility] | [facility] | | [address] | [facility] | | PROCEDURE NOTE [...] Martinez Conversion - 11/30/2013 4:45 PM [facility] | | Diagnostic Imaging Department | | [address] | | | | | | | [...] [place] | | | | | [facility] | | | | + +---------+ + + documented in this encounter Visit Diagnoses Not on filedocumented in this encounter"
--- OUTSIDE RECORDS SUMMARY | ~2019-10-11 | XMS | Encounter Summary ---
Demographics + + + | Address | [address] | | | [place] [address] | + + + | Home Phone [...] [place], [place] | | | | | [address] | | + + + + + Care Team Providers + +------+ + | Care Facilities Management Executive Name | Role | Phone | + +------+ + PCP | Unavailable | + +------+ + Encounter Details +--------+ + + + + | Date | Type | Department | Care Team | Description | +--------+ + + + + | 06/30/ | Hospital | [facility] | | | | 1999 - | Encounter | MED CTR GENERIC PSY | | | | | | CONV DEPT [address] | | | | 07/05/ | | [place], | | | | 1999 | | [place] [address] | | | | | | [phone] | | | +--------+ + + + [...] [place] | | | | | | [address] | | | | | | | | +--------+---------+ + + + documented as of this encounter Visit Diagnoses Not on filedocumented in this encounter"
--- OUTSIDE RECORDS SUMMARY | ~2019-10-11 | XMS | Encounter Summary ---
Demographics + + + | Address | [address] | | | [place] [address] | + + + | Home Phone [...] [place], [place] | | | | | [address] | | + + + + + Care Team Providers + +------+ + | Care Tube Knitter Name | Role | Phone | + +------+ + PCP | Unavailable | + +------+ + Encounter Details +--------+ + + + + | Date | Type | Department | Care Team | Description | +--------+ + + + + | 02/22/ | Hospital | [facility] | | | | 1996 | Encounter | MED CTR EMERGENCY | | | | | | [place] Sot[address] | | | | | | [place] | | | | | | [address] | | | | | | [phone] | | | +--------+ + + + [...] | | | | | [place] | | | | | | [address] | | | | | | | | +--------+---------+ + + + documented as of this encounter Visit Diagnoses Not on filedocumented in this encounter"
--- OUTSIDE RECORDS SUMMARY | ~2019-10-11 | XMS | Encounter Summary ---
Demographics + + + | Address | [address] | | | [place] [address] | + + + | Home Phone [...] [place], [place] | | | | | [address] | | + + + + + Care Team Providers + +------+ + | Care Driver'S License Examiner Name | Role | Phone | + +------+ + PCP | Unavailable | + +------+ + Encounter Details +--------+ + + + + | Date | Type | Department | Care Team | Description | +--------+ + + + + | 06/19/ | Hospital | [facility] | | | | 1991 - | Encounter | MED CTR GENERIC PSY | | | | | | CONV DEPT [address] | | | | 06/24/ | | [place], | | | | 1991 | | [place] [address] | | | | | | [phone] | | | +--------+ + + + [...] [place] | | | | | | [address] | | | | | | | | +--------+---------+ + + + documented as of this encounter Visit Diagnoses Not on filedocumented in this encounter"
--- OUTSIDE RECORDS SUMMARY | ~2019-10-11 | XMS | Encounter Summary ---
Demographics + + + | Address | [address] | | | [place] [address] | + + + | Home Phone [...] [place] | | | | | [address] | | + + + + + Care Team Providers + +------+ + | Care Rn Team Leader Name | Role | Phone [...] + + | 07/24/ | Telephone | [facility] | Ashley Chávez | Other (Patient is | | 2019 | | CARDIOLOGY GENESIS Abad, Tanning Drum Operator | worried about paying | | | | [address] | | for monitor. ) | | | | [place] | | | | | | [address] | | | | | | [phone] | | | +--------+ + + + [...] [place] | | | | | | [address] | | | | | | | | +--------+---------+ + + + documented as of this encounter Visit Diagnoses Not on filedocumented in this encounter"
--- OUTSIDE RECORDS SUMMARY | ~2019-10-11 | XMS | Encounter Summary ---
Demographics + + + | Address | [address] | | | [place] [address] | + + + | Home Phone [...] [place] | | | | | [address] | | + + + + + Care Team Providers + +------+ + | Care Polysomnography Technologist Name | Role | Phone | [...] | Frandy Simons DO | [address] | | | | | of skin | [address] | [place], | | | | | sensation | [address] | [place] | | | | | Arthrodesis | [place], [place] | [address] | | | | | status Left | [address] | Phone: | | | | | leg | Phone: | [phone] | | | | | weakness | [phone] | Fax: | | | | | Procedures | Fax: | [phone] | | | | | MRI Lumbar | [phone] | | | | | | Spine [...] | Frandy Simons DO | [address] | | | | | of skin | [address] | [place], | | | | | sensation | [address] | [place] | | | | | Arthrodesis | [place] | [address] | | | | | status Left | [address] | Phone: | | | | | leg | Phone: | [phone] | | | | | weakness | [phone] | Fax: | | | | | Procedures | Fax: | [phone] | | | | | MRI Lumbar | [phone] | | | | | | Spine wo | | | | | | | Contrast | | | +--------+--------+ + + + + Encounter Details +--------+ + + + + | Date | Type | Department | Care Team | Description | +--------+ + + + + | 08/19/ | Hospital | [facility] | Frandy Teresa, | Status post lumbar | | 2013 | Encounter | MED CTR MRI [address] | DO [address] | spinal fusion; Left | | | | [place], | [address] [place] | leg numbness; Left | | | | [place] [address] | [address] | leg weakness | | | | [phone] | | | +--------+ + + + [...] + + + +---------+ + + | Barnes-3 Fatty | Take 1,000 mg by | [...] [facility] | | | | | | [address] | | | | | | | [...] the round structure with high T1 and X5nqbhzb in the right L3 vertebral | | [...] + | MISCELLANEOUS LAB | | | [phone] | + +---------+ + + | MISCELANIOUS LAB | | | [phone] | + +---------+ + + documented in [...]
--- OUTSIDE RECORDS SUMMARY | ~2019-10-11 | XMS | Encounter Summary ---
Demographics + + + | Address | [address] | | | [place] [address] | + + + | Home Phone [...] [place], [place] | | | | | [address] | | + + + + + Care Team Providers + +------+ + | Care Computer Information Systems Instructor Name | Role | Phone | + +------+ + PCP | Unavailable | + +------+ + Encounter Details +--------+ + + + + | Date | Type | Department | Care Team | Description | +--------+ + + + + | 02/28/ | Hospital | [facility] | Deon Gonzales | | | 2011 | Encounter | MED CTR SLEEP | MD La[place] | | | | | [place] [address] [place] | [place] | | | | | [place], [place] | [place] [address] | | | | | [address] | [phone] | | | | | [phone] | | | +--------+ + + + [...] [place] | | | | | | [address] | | | | | | | | +--------+---------+ + + + documented as of this encounter Visit Diagnoses Not on filedocumented in this encounter"
--- OUTSIDE RECORDS SUMMARY | ~2019-10-11 | XMS | Encounter Summary ---
Demographics + + + | Address | [address] [address] | | | [place] [address] | + + + | Home Phone [...] [place] | | | | | [address] | | + + + + + Care Team Providers + +------+ + | Care Electric Stove Mechanic Name | Role | Phone | [...] Clinic | | | | | | [facility], [address] | | | | | | [place], [place] | | | | | | [address] | | | | | | [phone] | | | +--------+ + + + [...] as of this encounter Progress Notes Interface, Pantographer In - 12/11/2006 5:03 AM [facility] DATE: 07/03/97 INFECTIOUS DISEASE [...]
--- OUTSIDE RECORDS SUMMARY | ~2019-10-11 | XMS | Encounter Summary ---
Demographics + + + | Address | [address] [facility] [address] | | | [place] [address] | + + + | Home Phone [...] [place] | | | | | [address] | | + + + + + Care Team Providers + +------+ + | Care Patent Searcher Name | Role | Phone | + [...] Clinic | | | | | | [facility], [address] | | | | | | [place], [place] | | | | | | [address] | | | | | | [phone] | | | +--------+ + + + [...] as of this encounter Progress Notes Interface, Torpedo Worker In - 12/11/2006 5:[address] [facility] DATE: 07/03/97 INFECTIOUS DISEASE [...]
--- OUTSIDE RECORDS SUMMARY | ~2019-10-11 | XMS | Encounter Summary ---
Demographics + + + | Address | [address] | | | [place] [address] | + + + | Home Phone [...] [place], [place] | | | | | [address] | | + + + + + Care Team Providers + +------+ + | Care Irrigation Tax Assessor Collector Name | Role | Phone | + +------+ + PCP | Unavailable | + +------+ + Encounter Details +--------+ + + + + | Date | Type | Department | Care Team | Description | +--------+ + + + + | 05/29/ | Hospital | [facility] | | | | 1991 | Encounter | MED CTR LABORATORY | | | | | | [address] | | | | | | [place] | | | | | | [address] | | | | | | [phone] | | | +--------+ + + + [...] | | | | | [place] | | | | | | [address] | | | | | | | | +--------+---------+ + + + documented as of this encounter Visit Diagnoses Not on filedocumented in this encounter"
--- OUTSIDE RECORDS SUMMARY | ~2019-10-11 | XMS | Encounter Summary ---
Demographics + + + | Address | [address] | | | [place] [address] | + + + | Home Phone [...] [place] | | | | | [address] | | + + + + + [...] | | | | [address] [place] | [place] [address] | | | | | [place] [address] | [phone] | | | | | [phone] | | | +--------+--------+ + + + [...] [place] | | | | | | [address] | | | | | | | | +--------+---------+ + + + documented as of this encounter Visit Diagnoses + + | Diagnosis | + + | Essential hypertension - Primary Unspecified essential hypertension | + + documented in this encounter"
--- OUTSIDE RECORDS SUMMARY | ~2019-10-11 | XMS | Encounter Summary ---
Demographics + + + | Address | [address] | | | [place] [address] | + + + | Home Phone [...] [place] | | | | | [address] | | + + + + + Care Team Providers + +------+ + | Care Digital Art Director Name | Role | Phone [...] [place] | | | | | | [address] | | | | | | [phone] | | | +--------+ + + + [...] [place] | | | | | | [address] | | | | | | | | +--------+---------+ + + + documented as of this encounter Visit Diagnoses Not on filedocumented in this encounter"
--- OUTSIDE RECORDS SUMMARY | ~2019-10-11 | XMS | Encounter Summary ---
Demographics + + + | Address | [address] [facility] | | | [place] [address] | + + + | Home Phone [...] [place] | | | | | [address] | | + + + + + Care Team Providers + +------+ + | Care Photographer Portrait Name | Role | Phone | + [...] | | | | | | [place] [address] | | | | | | [phone] | | | | | | | [...] in | | | | | | [place] with a | | | | | [...] [facility] | | | | | [facility] | | | | | | Laboratory, [place], | | | | | | [place], delivered | | | | | | [...] by | | | | | | ulhsvzfcNvb-Xmy-C: | | | | | | Increased [...] istryMHC-1: | | | | | | ViuorxtxEC23 stain | | | | | | [...] + + | [facility] | [address] | [place] [address] | | | PATHOLOGY | [place] | | | + + + + + documented in this encounter Visit Diagnoses Not on filedocumented in this encounter
--- OUTSIDE RECORDS SUMMARY | ~2019-10-11 | XMS | Encounter Summary ---
Demographics + + + | Address | [address] | | | [place] [address] | + + + | Home Phone [...] [place], [place] | | | | | [address] | | + + + + + Care Team Providers + +------+ + | Care Grain Combine Driver Name | Role | Phone | + +------+ + PCP | Unavailable | + +------+ + Encounter Details +--------+ + + + + | Date | Type | Department | Care Team | Description | +--------+ + + + + | 12/22/ | Hospital | [facility] | | | | 1993 - | Encounter | MED CTR GENERIC PSY | | | | | | CONV DEPT [address] | | | | 12/25/ | | [place], | | | | 1993 | | [place] [address] | | | | | | [phone] | | | +--------+ + + + [...] [place] | | | | | | [address] | | | | | | | | +--------+---------+ + + + documented as of this encounter Visit Diagnoses Not on filedocumented in this encounter"
--- OUTSIDE RECORDS SUMMARY | ~2019-10-11 | XMS | Encounter Summary ---
Demographics + + + | Address | [address] | | | [place] [address] | + + + | Home Phone [...] [place], [place] | | | | | [address] | | + + + + + Care Team Providers + +------+ + | Care Design And Sales Consultant Name | Role | Phone | + +------+ + PCP | Unavailable | + +------+ + Encounter Details +--------+ + + + + | Date | Type | Department | Care Team | Description | +--------+ + + + + | 12/31/ | Hospital | [facility] | | | | 1996 | Encounter | MED CTR XRAY [address] | | | | | | [place] | | | | | | [place] [address] | | | | | | [phone] | | | +--------+ + + + [...] | | | | | [place] | | | | | | [address] | | | | | | | | +--------+---------+ + + + documented as of this encounter Visit Diagnoses Not on filedocumented in this encounter"
--- OUTSIDE RECORDS SUMMARY | ~2019-10-11 | XMS | Encounter Summary ---
Demographics + + + | Address | [address] | | | [place] [address] | + + + | Home Phone [...] [place] | | | | | [address] | | + + + + + Care Team Providers + +------+ + | Care Kiln Tender Name | Role | Phone | [...] + + | 08/30/ | Telephone | [facility] | Ashley Chávez | Other (Patient wants | | 2019 | | CARDIOLOGY [place] | Pollo, Burlap Roll Coverer | to take monitor | | | | [address] | | off. ) | | | | [address] | | | | | | [place] | | | | | | [address] | | | | | | [phone] | | | +--------+ + + + [...] [place] | | | | | | [address] | | | | | | | | +--------+---------+ + + + documented as of this encounter Visit Diagnoses Not on filedocumented in this encounter"
--- OUTSIDE RECORDS SUMMARY | ~2019-10-11 | XMS | Encounter Summary ---
Demographics + + + | Address | [address] | | | [place] [address] | + + + | Home Phone [...] [place], [place] | | | | | [address] | | + + + + + Care Team Providers + +------+ + | Care Trouble Operator Name | Role | Phone | + +------+ + PCP | Unavailable | + +------+ + Encounter Details +--------+ + + + + | Date | Type | Department | Care Team | Description | +--------+ + + + + | 04/01/ | Hospital | [facility] | | | | 1998 | Encounter | MED CTR XRAY [address] | | | | | | [address] | | | | | | [place] [address] | | | | | | [phone] | | | +--------+ + + + [...] | | | | | [place] | | | | | | [address] | | | | | | | | +--------+---------+ + + + documented as of this encounter Visit Diagnoses Not on filedocumented in this encounter"
--- OUTSIDE RECORDS SUMMARY | ~2019-10-11 | XMS | Encounter Summary ---
Demographics + + + | Address | [address] | | | [place] [address] | + + + | Home Phone [...] [place] | | | | | [address] | | + + + + + [...] [address] | | | | | [place], [place] | Shaheen Simons | | | | | [address] | [place] [address] | | | | | [phone] | [phone] | | | | | | | [...] [place] | | | | | | [address] | | | | | | | [...] GIVEN Testing | | | performed at [facility];[address] [place] [address] CULTURE | | | 50,000 TO 100,000 CFU/ML | | | MIXED GRAM POSITIVE HAIDER NO SUSCEPTIBILITY TO FOLLOW | | | MULTIPLE ORGANISM TYPES PRESENT, | | | SUGGESTIVE OF CONTAMINATION OR COLONIZATION. SUGGEST RECOLLECTION FOR | | | CULTURE. Testing | | | performed at [facility];[address] [place] [address];[place] [address] REPORT | | | STATUS 06/08/2012 FINAL [...]
--- OUTSIDE RECORDS SUMMARY | ~2019-10-11 | XMS | Encounter Summary ---
Demographics + + + | Address | [address] | | | [place] [address] | + + + | Home Phone [...] [place] | | | | | [address] | | + + + + + Care Team Providers + +------+ + | Care Butcher Head Name | Role | Phone | [...] [address] | [address] [place], [place] | | | | | [place], [place] | [id number] | | | | | [address] | | | | | | [phone] | | | +--------+ + + + [...] | | | | | [place] | | | | | | [address] | | | | | | | | +--------+---------+ + + + documented as of this encounter Visit Diagnoses Not on filedocumented in this encounter"
--- OUTSIDE RECORDS SUMMARY | ~2019-10-11 | XMS | Encounter Summary ---
Demographics + + + | Address | [address] | | | [place] [address] | + + + | Home Phone [...] [place] | | | | | [address] | | + + + + + Care Team Providers + +------+ + | Care Product Marketing Programs Manager Name | Role | Phone | [...] + + | 08/16/ | Telephone | [facility] | Ashley Chávez | Other (Called to | | 2018 | | CARDIOLOGY [place] | Pollo, Java J2Ee Lead | tell patient what | | | | [address] | | Nicholas said. ) | | | | [address] | | | | | | [place] | | | | | | [address] | | | | | | [phone] | | | +--------+ + + + [...] [place] | | | | | | [address] | | | | | | | | +--------+---------+ + + + documented as of this encounter Visit Diagnoses Not on filedocumented in this encounter"
[~2019-10-11 10:06] MED LIST changes: +OLANZAPINE20 MG PO
--- OUTSIDE RECORDS SUMMARY | 2019-10-11 10:08 | XMS ---
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 Security Caregivers Homecare Events No recent Security Events currently on file CRITERIA MET - 6 ED Visits in 6 Months - [facility] - Has Care Guidelines - PDMP - [facility] - 2 Visits in 30 Days CARE PROVIDERS WAYNE CAMARGO Internal Medicine 09/07/2019-Current PHONE: Unknown Kenny Palafox DO Family [facility] Current PHONE: Unknown Jose Ag Family Medicine 01/31/2019-Current PHONE: Unknown [facility] [place] [facility] Provider Current PHONE: [phone] Guidelines Source: Vivian Radha NevarezGuthrie Guidelines Date: 03/13/2019 Care Coordination: Mental health services are being provided by [facility].\T\nbsp; Please contact [facility] with mental health concerns.\T\nbsp; [place]: \T\nbsp; [place]: [phone]. Care History Medical/Surgical 10/01/2019 [facility] Patient\T\#[id number];s 09/28/[address] Camargo was rescheduled for 2019. 09/19/2019 [facility] Patient has follow up appt. with Dr. Camargo on 09/28/19. 07/02/2019 [facility] - PATIENT HAS AN APT WITH [facility]NALES ON 07/19/19. E.D. VISIT COUNT (12 MO.) 23 [facility]. TOTAL 23 NOTE: Visits indicate total known visits. ED/UCC VISIT TRACKING (12 MO.) 10/11/2019 10:06 [facility] [place] TYPE: Emergency COMPLAINT: - MEDICAL CLEARANCE 09/28/2019 13:19 [facility] [place] TYPE: Emergency COMPLAINT: - MEDICAL CLEARANCE DIAGNOSES: - 1 Type 2 diabetes mellitus without complications - Allergy status to oth drug/meds/biol subst status - Old myocardial infarction - Other cloud administrator (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 - Allergy status to sulfonamides status - Gastro-esophageal reflux disease without esophagitis - Essential (primary) hypertension - Suicidal ideations - Encounter for other administrative examinations 09/26/2019 10:06 [facility] [place] TYPE: Emergency COMPLAINT: - MEDICAL CLEARANCE DIAGNOSES: - Other care home (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 - Prsnl hx of TIA (TIA), and 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 - Gastro-esophageal reflux disease without esophagitis - Allergy status to sulfonamides status - Old myocardial infarction - Schizoaffective disorder, unspecified - Allergy status to oth drug/meds/biol subst status - Essential (primary) hypertension - senior care (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 09/25/2019 13:35 [facility] [place] TYPE: Emergency COMPLAINT: - HEARING VOICES DIAGNOSES: - 1 Type 2 diabetes mellitus without complications - Prsnl hx of TIA (TIA), and 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 - Gastro-esophageal reflux disease without esophagitis - Schizoaffective disorder, unspecified - Suicidal ideations - senior care (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 - Old myocardial infarction - Allergy status to sulfonamides status - Essential (primary) hypertension - Other care home (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 - Allergy status to oth drug/meds/biol subst status 09/18/2019 13:53 [facility] [place] TYPE: Emergency COMPLAINT: - MEDICAL CLEARANCE DIAGNOSES: - 1 Type 2 diabetes mellitus without complications - Schizoaffective disorder, unspecified - Suicidal ideations - Allergy status to oth drug/meds/biol subst status - Gastro-esophageal reflux disease without esophagitis - Old myocardial infarction - 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 - Essential (primary) hypertension - Rash and other nonspecific skin eruption - Allergy status to sulfonamides status - Other cloud administrator (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 09/18/2019 10:33 [facility] [place] TYPE: Emergency COMPLAINT: - SUICIDAL THOUGHTS, HEARING VOICES DIAGNOSES: - Disorder of urea cycle metabolism, unspecified - Other care home (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 - Schizoaffective disorder, unspecified - Essential (primary) hypertension - 1 Type 2 diabetes mellitus without complications - Gastro-esophageal reflux disease without esophagitis - Old myocardial infarction - Allergy status to sulfonamides status - Allergy status to oth drug/meds/biol subst status - 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 09/06/2019 11:40 [facility] [place] TYPE: Emergency COMPLAINT: - MEDICAL CLEARANCE DIAGNOSES: - Old myocardial infarction - Essential (primary) hypertension - Allergy status to sulfonamides status - Auditory hallucinations - Other cloud administrator (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 - Allergy status to oth drug/meds/biol subst status - 1 Type 2 diabetes mellitus without complications - Gastro-esophageal reflux disease without esophagitis 08/15/2019 15:26 [facility] [place] TYPE: Emergency COMPLAINT: - DIZZINESS DIAGNOSES: - Schizoaffective disorder, unspecified - Other care home (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 - 1 Type [...] 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 - Other care home (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 [...] status to narcotic agent status - Other cloud administrator (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 - Schizophrenia, unspecified 05/10/2019 14:24 [facility] [place] TYPE: Emergency COMPLAINT: - MEDICAL CLEARANCE DIAGNOSES: - Acquired absence of other specified parts of digestive tract - 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 - Gastro-esophageal reflux disease without esophagitis - Other cloud administrator (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 - Allergy status to oth drug/meds/biol subst status - threading machine feeder automatic (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 of 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 - [...] Allergy status to sulfonamides status - senior care (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 of [...] of urea cycle metabolism, unspecified - Other cloud administrator (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 - Acquired absence of other specified parts of digestive tract - Essential (primary) hypertension 04/03/2019 12:30 [facility] [place] TYPE: Emergency COMPLAINT: - TROUBLE BREATHING DIAGNOSES: - Allergy status to oth drug/meds/biol subst status - Other care home (current) drug [...] tract - Essential (primary) hypertension - Other cloud administrator (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 - Prsnl hx of [...] - Allergy status to narcotic agent status Plus 3 More Visits INPATIENT VISIT TRACKING (12 MO.) 05/16/2019 11:50 [facility] [place] TYPE: Care Home COMPLAINT: - SCHIZOAFFECTIVE D/O DIAGNOSES: - Schizoaffective disorder, unspecified [email or web address]
[2019-10-12] MEDS ORDERED: TOPROL XL50 MG PO (11:36)
== END 2019-10-11 11:15 | disposition home or self-care (01) ==
LOC: ED 10:06
DX: F25.9 Schizoaffective disorder, unspecified (principal); F22 Delusional disorders; I10 Essential (primary) hypertension; I25.2 Old myocardial infarction; Z88.2 Allergy status to sulfonamides; Z79.899 Other long term (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
CPT/HCPCS: 80053; 84443; 85025; 99284; G0480

== ENCOUNTER 2019-10-22 16:36 | Emergency (ER) | payer MEDICARE ==
[~2019-10-22] VITALS: Ht 170.2 cm; Wt 131.5 kg
--- OUTSIDE RECORDS SUMMARY | ~2019-10-22 | XMS | Encounter Summary ---
Demographics + + + | Address | [address] [facility] [address] | | | [place] [address] | + + + | Home Phone | | + + + | Preferred Language | Unknown | + + + | Marital Status | | + + + | Zoroastrianism Affiliation | 1013 | + + + | Race | Unknown | + + + | Ethnic Group | Unknown | + + + Author + + + | Author | [facility] | | | and [place] | + + + | Organization | [facility] | | | and [place] | + + + | Address | Unknown | + + + | Phone | Unavailable | + + + Support + + + + + | Name | Relationship | Address | Phone | + + + + + | Araceli Sibley | ECON | [place], [place] | | | | | [address] | | + + + + + Care Team Providers + +------+ + | Care Paper Maker Name | Role | Phone | + +------+ + PCP | Unavailable | + +------+ + Encounter Details +--------+ + + + + | Date | Type | Department | Care Team | Description | +--------+ + + + + | 03/11/ | [facility] | [facility] | Deon Gonzales | | | 2005 | Encounter | MED CTR SLEEP | MD [place] [address] | | | | | [place] [address] | [address] | | | | | [place], [place] | [place] [address] | | | | | [address] | [phone] | | | | | [phone] | | | +--------+ + + + [...] [place] | | | | | | [address] | | | | | | | | +--------+---------+ + + + documented as of this encounter Visit Diagnoses Not on filedocumented in this encounter"
--- OUTSIDE RECORDS SUMMARY | ~2019-10-22 | XMS | Encounter Summary ---
Demographics + + + | Address | [address] [facility] [address] | | | [place] [address] | + + + | Home Phone | | + + + | Preferred Language | Unknown | + + + | Marital Status | | + + + | Restorationist Affiliation | 1013 | + + + | Race | Unknown | + + + | Ethnic Group | Unknown | + + + Author + + + | Author | [facility] | | | and [place] | + + + | Organization | [facility] | | | and [place] | + + + | Address | Unknown | + + + | Phone | Unavailable | + + + Support + + + + + | Name | Relationship | Address | Phone | + + + + + | Araceli Sibley | ECON | [place], [place] | | | | | [address] | | + + + + + Care Team Providers + +------+ + | Care Kindergarten Aide Name | Role | Phone | + +------+ + PCP | Unavailable | + +------+ + Encounter Details +--------+ + + + + | Date | Type | Department | Care Team | Description | +--------+ + + + + | 02/16/ | Hospital | [facility] | | | | 1994 | Encounter | MED CTR LABORATORY | | | | | | [address] | | | | | | [place] | | | | | | [address] | | | | | | [phone] | | | +--------+ + + + [...] | | | | | [place] | | | | | | [address] | | | | | | | | +--------+---------+ + + + documented as of this encounter Visit Diagnoses Not on filedocumented in this encounter"
--- OUTSIDE RECORDS SUMMARY | ~2019-10-22 | XMS | Encounter Summary ---
Demographics + + + | Address | [address] [facility] [address] | | | [place] [address] | + + + | Home Phone | | + + + | Preferred Language | Unknown | + + + | Marital Status | | + + + | Orthodox Affiliation | 1013 | + + + | Race | Unknown | + + + | Ethnic Group | Unknown | + + + Author + + + | Author | [facility] | | | and [place] | + + + | Organization | [facility] | | | and [place] | + + + | Address | Unknown | + + + | Phone | Unavailable | + + + Support + + + + + | Name | Relationship | Address | Phone | + + + + + | Araceli Sibley | ECON | [place] | | | | | [address] | | + + + + + Care Team Providers + +------+ + | Care Clinical Training Specialist Name | Role | Phone | [...] + + | 09/10/ | Documentati | [facility] | Katharine Moncada, | Other (urgent | | 2019 | on | CARDIOLOGY [place] | Technologist | report) | | | | [address] | | | | | | [place] | | | | | | [address] | | | | | | [phone] | | | +--------+ + + + [...] Progress Notes Katharine Moncada, Technologist - 09/10/2019 9:40 AM PSTReceived urgent report 09/10/19 Pt had a self triggered 08/25/19 at 19:54 121 BPM, activity: none 30 day monitor was placed 08/09/19 Medication: [...] [place] | | | | | | [address] | | | | | | | | +--------+---------+ + + + documented as of this encounter Visit Diagnoses Not on filedocumented in this encounter"
--- OUTSIDE RECORDS SUMMARY | ~2019-10-22 | XMS | Encounter Summary ---
Demographics + + + | Address | [address] [facility] [address] | | | [place] [address] | + + + | Home Phone [...] | Author | [facility] | | | and [place] | + + + | Organization | [facility] [...] [place] | | | | | [address] | | + + + + + Care Team Providers + +------+ + | Care Counter Intelligence Agent Name | Role | Phone | [...] + + | 06/28/ | Telephone | [facility] | Ashley Chávez | Talia (Patient | | 2019 | | CARDIOLOGY [place] Abad, Trimmer Loader | called to cancel her | | | | [address] | | appointment) | | | | [place] | | | | | | [address] | | | | | | [phone] | | | +--------+ + + + [...] [place] | | | | | | [address] | | | | | | | | +--------+---------+ + + + documented as of this encounter Visit Diagnoses Not on filedocumented in this encounter"
--- OUTSIDE RECORDS SUMMARY | ~2019-10-22 | XMS | Encounter Summary ---
Demographics + + + | Address | [address] [facility] [address] | | | [place] [address] | + + + | Home Phone [...] [place] | | | | | [address] | | + + + + + Care Team Providers + +------+ + | Care Chute Greaser Name | Role | Phone | + +------+ + | Natalee Andersen NP | PCP | | + +------+ + Encounter Details +--------+ + + + + | Date | Type | Department | Care Team | Description | +--------+ + + + + | 07/06/ | Hospital | [facility] | Latricia Feliciano | | | 2014 | Encounter | MED CTR ACUTE | D, PT [address] | | | | | PHYSICAL THERAPY | [place] | | | | | [address] | [address] | | | | | [place] [address] | | | | | | [phone] | | | +--------+ + + + [...] + + + +---------+ + + | [place]-3 Fatty | Take 1,000 mg by | [...] | | | | | [place] | | | | | | [address] | | | | | | | | +--------+---------+ + + + documented as of this encounter Visit Diagnoses Not on filedocumented in this encounter"
--- OUTSIDE RECORDS SUMMARY | ~2019-10-22 | XMS | Encounter Summary ---
Demographics + + + | Address | [address] [facility] [address] | | | [place] [address] | + + + | Home Phone [...] [place], [place] | | | | | [address] | | + + + + + Care Team Providers + +------+ + | Care Financial Assistant Name | Role | Phone | + +------+ + PCP | Unavailable | + +------+ + Encounter Details +--------+ + + + + | Date | Type | Department | Care Team | Description | +--------+ + + + + | 12/27/ | Hospital | [facility] | | | | 1997 - | Encounter | MED CTR GENERIC PSY | | | | | | CONV DEPT [address] | | | | 01/01/ | | [address], | | | | 1997 | | [place] [address] | | | | | | [phone] | | | +--------+ + + + [...] [place] | | | | | | [address] | | | | | | | | +--------+---------+ + + + documented as of this encounter Visit Diagnoses Not on filedocumented in this encounter"
--- OUTSIDE RECORDS SUMMARY | ~2019-10-22 | XMS | Encounter Summary ---
Demographics + + + | Address | [address] [facility] [address] | | | [place] [address] | + + + | Home Phone [...] [place] | | | | | [address] | | + + + + + Care Team Providers + +------+ + | Care Zanjero Name | Role | Phone | + [...] + + | 08/14/ | Telephone | [facility] | Ashley Chávez | Other (Patient was | | 2019 | | CARDIOLOGY [place] Abad, Home Health Travel [employer] | anxious about urgent | | | | [address] | | reports. ) | | | | [place] | | | | | | [address] | | | | | | [phone] | | | +--------+ + + + [...] [place] | | | | | | [address] | | | | | | | | +--------+---------+ + + + documented as of this encounter Visit Diagnoses Not on filedocumented in this encounter"
--- OUTSIDE RECORDS SUMMARY | ~2019-10-22 | XMS | Encounter Summary ---
Demographics + + + | Address | [address] [facility] [address] | | | [place] [address] | + + + | Home Phone | | + + + | Preferred Language | Unknown | + + + | Marital Status | | + + + | Bahai Affiliation | 1013 | + + + [...] [place] | | | | | [address] | | + + + + + Care Team Providers + +------+ + | Care Chief Investigator Name | Role | Phone | + [...] [address] | [address] [place], [place] | Hypothyroidism; | | | | [place] | [address] | GERD; BACK PAIN, | | | | [address] | | LUMBAR, WITH | | | | [phone] | | RADICULOPATHY; | | | | [...] [place] | | | | | | [address] | | | | | | | [...]
--- OUTSIDE RECORDS SUMMARY | ~2019-10-22 | XMS | Encounter Summary ---
Demographics + + + | Address | [address] [facility] [address] | | | [place] [address] | + + + | Home Phone [...] + | Author | [facility] | | | and [place] | + + + | Organization | [facility] | | | and [place] | + + + | Address | Unknown | + + + | Phone | Unavailable | + + + Support + + + + + | Name | Relationship | Address | Phone | + + + + + | Araceli Siblye | ECON | [place] | | | | | [address] | | + + + + + Care Team Providers + +------+ + | Care Gunsmith Apprentice Name | Role | Phone | + +------+ + PCP | Unavailable | + +------+ + Encounter Details +--------+ + + + + | Date | Type | Department | Care Team | Description | +--------+ + + + + | 04/27/ | Hospital | [facility] | Sage Garza MD | | | 2001 | Encounter | HOSPITAL EMERGENCY | | | | | | CENTER [address] | [address] [place], [place] | | | | | | [address] | | | | | | [phone] | | | +--------+ + + + [...] [place] | | | | | | [address] | | | | | | | | +--------+---------+ + + + documented as of this encounter Visit Diagnoses Not on filedocumented in this encounter"
--- OUTSIDE RECORDS SUMMARY | ~2019-10-22 | XMS | Encounter Summary ---
Demographics + + + | Address | [address] [facility] [address] | | | [place] [address] | + + + | Home Phone [...] [place] | | | | | [address] | | + + + + + Care Team Providers + +------+ + | Care Melter Helper Name | Role | Phone | [...] + + | 06/28/ | Telephone | [facility] | Ashley Chávez | Talia (Patient | | 2019 | | CARDIOLOGY [place] Abad, Paper Mill Supervisor | called to cancel her | | | | [address] | | appointment) | | | | [place] | | | | | | [address] | | | | | | [phone] | | | +--------+ + + + [...] [place] | | | | | | [address] | | | | | | | | +--------+---------+ + + + documented as of this encounter Visit Diagnoses Not on filedocumented in this encounter"
--- OUTSIDE RECORDS SUMMARY | ~2019-10-22 | XMS | Encounter Summary ---
Demographics + + + | Address | [address] [facility] [address] | | | [place] [address] | + + + | Home Phone | | + + + | Preferred Language | Unknown | + + + | Marital Status | | + + + | Adventist Affiliation | 1013 | + + + | Race | Unknown | + + + | Ethnic Group | Unknown | + + + Author + + + | Author | [facility] | | | and [place] | + + + | Organization | [facility] | | | and [place] | + + + | Address | Unknown | + + + | Phone | Unavailable | + + + Support + + + + + | Name | Relationship | Address | Phone | + + + + + | Araceli Sibley | ECON | [place] | | | | | [address] | | + + + + + Care Team Providers + +------+ + | Care Casting Machine Control Board Operator Name | Role | Phone | [...] + + + + | 05/02/ | Telephone | [facility] | Frandy Teresa, | Other | | 2013 | | NEUROSURGERY [address] | DO [address] | | | | | [address] | [address] [place], [place] | | | | | [place], [place] | [id number] | | | | | [address] | | | | | | [phone] | | | +--------+ + + + [...] | | | | | [place] | | | | | | [address] | | | | | | | | +--------+---------+ + + + documented as of this encounter Visit Diagnoses Not on filedocumented in this encounter"
--- OUTSIDE RECORDS SUMMARY | ~2019-10-22 | XMS | Encounter Summary ---
Demographics + + + | Address | [address] [facility] [address] | | | [place] [address] | + + + | Home Phone [...] [place] | | | | | [address] | | + + + + + Care Team Providers + +------+ + | Care Tool Inspector Name | Role | Phone | + +------+ + | Adriano Patrick MD | PCP | | + +------+ + Reason for Visit +--------+ + | Reason | Comments | +--------+ + | Other | | +--------+ + Encounter Details +--------+ + + + + | Date | Type | Department | Care Team | Description | +--------+ + + + + | 10/22/ | Telephone | [facility] | Susu Peralta, | Other | | 2019 | | CARDIOLOGY [place] | DMITRIY | | | | | [address] | | | | | | [place], [place] | | | | | | [address] | | | | | | [phone] | | | +--------+ + + + [...] | | | | | [place] | | | | | | [address] | | | | | | | | +--------+---------+ + + + documented as of this encounter Visit Diagnoses Not on filedocumented in this encounter"
--- OUTSIDE RECORDS SUMMARY | ~2019-10-22 | XMS | Encounter Summary ---
Demographics + + + | Address | [address] [facility] [address] | | | [place] [address] | + + + | Home Phone [...] + | Author | [facility] | | | and [place] | + + + | Organization | [facility] | | | and [place] | + + + | Address | Unknown | + + + | Phone | Unavailable | + + + Support + + + + + | Name | Relationship | Address | Phone | + + + + + | Araceli Sibley | ECON | [place], [place] | | | | | [address] | | + + + + + Care Team Providers + +------+ + | Care Chef De Partie Name | Role | Phone | + [...] | SR | | | | | [phone] | | | +--------+ + + + [...] [place] | | | | | | [address] | | | | | | | | +--------+---------+ + + + documented as of this encounter Visit Diagnoses Not on filedocumented in this encounter
--- OUTSIDE RECORDS SUMMARY | ~2019-10-22 | XMS | Encounter Summary ---
Demographics + + + | Address | [address] [facility] [address] | | | [place] [address] | + + + | Home Phone | | + + + | Preferred Language | Unknown | + + + | Marital Status | | + + + | Sabianist Affiliation | 1013 | + + + | Race | Unknown | + + + | Ethnic Group | Unknown | + + + Author + + + | Author | [facility] | | | and [place] | + + + | Organization | [facility] | | | and [place] | + + + | Address | Unknown | + + + | Phone | Unavailable | + + + Support + + + + + | Name | Relationship | Address | Phone | + + + + + | Araceli Sibley | ECON | [place] | | | | | [address] | | + + + + + Care Team Providers + +------+ + | Care Miner Operator Name | Role | Phone | + +------+ + | Natalee Andersen NP | PCP | | + +------+ + Reason for Visit +--------+ + | Reason | Comments | +--------+ + | Other | Surgery | +--------+ + Encounter Details +--------+ + + + + | Date | Type | Department | Care Team | Description | +--------+ + + + + | 07/01/ | Telephone | [facility] | Frandy Teresa, | Other (Surgery ) | | 2013 | | NEUROSUR[address]ERY [address] | DO [address] | | | | | [address] | [address] [place], [place] | | | | | [place], [place] | [address] | | | | | [address] | | | | | | [phone] | | | +--------+ + + + [...] [place] | | | | | | [address] | | | | | | | | +--------+---------+ + + + documented as of this encounter Visit Diagnoses Not on filedocumented in this encounter"
--- OUTSIDE RECORDS SUMMARY | ~2019-10-22 | XMS | Encounter Summary ---
Demographics + + + | Address | [address] [facility] | | | [place] [address] | + + + | Home Phone [...] [place] | | | | | [address] | | + + + + + Care Team Providers + +------+ + | Care Senior Sas Developer Name | Role | Phone | + +------+ + | Basim Bolanos MD | PCP | | + +------+ + Reason for Visit + + + | Reason | Comments | + + + | Medication Refill | | + + + Encounter Details +--------+--------+ + + + | Date | Type | Department | Care Team | Description | +--------+--------+ + + + | 02/21/ | Refill | [facility] | Deon Gonzales | Medication Refill | | 2012 | | SLEEP DISORDER [address] | MD [place] | | | | | [address] [place] | [address] [place] | | | | | [place] [address] | [place] [address] | | | | | [phone] | [phone] | | | | | | | | +--------+--------+ + + + [...] [place] | | | | | | [address] | | | | | | | | +--------+---------+ + + + documented as of this encounter Visit Diagnoses + + | Diagnosis | + + | Obstructive sleep apnea (adult) (pediatric) - Primary | + + documented in this encounter"
--- OUTSIDE RECORDS SUMMARY | ~2019-10-22 | XMS | Encounter Summary ---
Demographics + + + | Address | [address] [facility] | | | [place] [address] | + + + | Home Phone | | + + + | Preferred Language | Unknown | + + + | Marital Status | | + + + | Sikhism Affiliation | 1013 | + + + [...] [place], [place] | | | | | [address] | | + + + + + Care Team Providers + +------+ + | Care Engraver Flatware Name | Role | Phone | + +------+ + PCP | Unavailable | + +------+ + Encounter Details +--------+ + + + + | Date | Type | Department | Care Team | Description | +--------+ + + + + | 07/17/ | Hospital | [facility] | | | | 1997 | Encounter | MED CTR EMERGENCY | | | | | | [address] | | | | | | [place] | | | | | | [address] | | | | | | [phone] | | | +--------+ + + + [...] | | | | | [place] | | | | | | [address] | | | | | | | | +--------+---------+ + + + documented as of this encounter Visit Diagnoses Not on filedocumented in this encounter"
--- OUTSIDE RECORDS SUMMARY | ~2019-10-22 | XMS | Encounter Summary ---
Demographics + + + | Address | [address] [facility] | | | [place] [address] | + + + | Home Phone | | + + + | Preferred Language | Unknown | + + + | Marital Status | | + + + | Catholic Affiliation | 1013 | + + + | Race | Unknown | + + + | Ethnic Group | Unknown | + + + Author + + + | Author | [facility] | | | and [place] | + + + | Organization | [facility] | [...] [place] | | | | | [address] | | + + + + + Care Team Providers + +------+ + | Care Twister In Name | Role | Phone | + [...] + + | 08/22/ | Documentati | [facility] | Katharine Moncada, | Other (urgent | | 2019 | on | CARDIOLOGY [place] | Technologist | report) | | | | [address] | | | | | | [place] | | | | | | [address] | | | | | | [phone] | | | +--------+ + + + [...] [place] | | | | | | [address] | | | | | | | | +--------+---------+ + + + documented as of this encounter Visit Diagnoses Not on filedocumented in this encounter"
--- OUTSIDE RECORDS SUMMARY | ~2019-10-22 | XMS | Encounter Summary ---
Demographics + + + | Address | [address] [facility] | | | [place] [address] | + + + | Home Phone [...] [place] | | | | | [address] | | + + + + + Care Team Providers + +------+ + | Care Commercial Front Load Operator Name | Role | Phone | [...] + + | 08/16/ | Documentati | [facility] | Katharine Moncada, | Other (urgent | | 2019 | on | CARDIOLOGY [place] | Technologist | report) | | | | [address] | | | | | | [place] | | | | | | [address] | | | | | | [phone] | | | +--------+ + + + [...] Progress Notes Katharine Moncada, Technologist - 08/16/2019 7:38 AM PDTReceived urgent report 08/16/19 Pt self triggered 08/15/19 at 14:59 127 BPM 30 day monitor was placed 08/09/19 [...] [place] | | | | | | [address] | | | | | | | | +--------+---------+ + + + documented as of this encounter Visit Diagnoses Not on filedocumented in this encounter"
--- OUTSIDE RECORDS SUMMARY | ~2019-10-22 | XMS | Clinical Summary ---
Demographics + + + | Address | [address] [facility] | | | [place] [address] | + + + | Home Phone [...] [place] | | | | | [address] | | + + + + + Care Team Providers + +------+ + | Care Knitting Demonstrator Name | Role | Phone | + +------+ + PCP | Unavailable | + +------+ + Source Comments EDWARD is fully live on both [facility] Ambulatory and [facility] InPatient.[facility] Allergies Not on File Medications [...] | [facility] | xxxxxxxxxx | 02/22/20 | [phone] | [address] | Medica | | | RE A & | | 15-Pre | 1 | [phone] | re | | | B | | sent | | [place] | | | | | | | | [address] | | + +--------+ +--------+ + +--------+ + +--------+ +--------+ + + | Guarantor Name | Accoun | Relation to | Date | Phone | Billing Address | | | t Type | Patient | of | | | | | | | | | | + +--------+ +--------+ + + | CINDY ARNDT | Person | Self | [birth year] | [address] | | | al/Fam | | 1955 | [phone] | [address] [place] | | | devonte | | | 5 (Home) | [address] | + +--------+ +--------+ + +"
--- OUTSIDE RECORDS SUMMARY | ~2019-10-22 | XMS | Encounter Summary ---
Demographics + + + | Address | [address] [facility] | | | [place] [address] | + + + | Home Phone | | + + + | Preferred Language | Unknown | + + + | Marital Status | | + + + | Restorationism Affiliation | 1013 | + + + | Race | Unknown | + + + | Ethnic Group | Unknown | + + + Author + + + | Author | [facility] | | | and [place] | + + + | Organization | [facility] | | | and [place] | + + + | Address | Unknown | + + + | Phone | Unavailable | + + + Support + + + + + | Name | Relationship | Address | Phone | + + + + + | Araceli Sibley | ECON | [place] | | | | | [address] | | + + + + + Care Team Providers + +------+ + | Care Embossing Calender Operator Name | Role | Phone | [...] + + | 02/01/ | Telephone | [facility] | Frandy Teresa, | Imaging Only | | 2019 | | NEUROSURGERY [address] | DO [address] | | | | | [address] | [address] [place], [place] | | | | | [place], [place] | [address] | | | | | [address] | | | | | | [phone] | | | +--------+ + + + [...] [place] | | | | | | [address] | | | | | | | | +--------+---------+ + + + documented as of this encounter Visit Diagnoses Not on filedocumented in this encounter"
--- OUTSIDE RECORDS SUMMARY | ~2019-10-22 | XMS | Encounter Summary ---
Demographics + + + | Address | [address] [facility] | | | [place] [address] | + + + | Home Phone | | + + + | Preferred Language | Unknown | + + + | Marital Status | | + + + | Voodoo Affiliation | 1013 | + + + | Race | Unknown | + + + | Ethnic Group | Unknown | + + + Author + + + | Author | [facility] | | | and [place] | + + + | Organization | [facility] | | | and [place] | + + + | Address | Unknown | + + + | Phone | Unavailable | + + + Support + + + + + | Name | Relationship | Address | Phone | + + + + + | Araceli Sibley | ECON | [place] | | | | | [address] | | + + + + + Care Team Providers + +------+ + | Care Cutter Grind Tool Technician Name | Role | Phone | + +------+ + | Basim Bolanos MD | PCP | | + +------+ + Encounter Details +--------+ + + + + | Date | Type | Department | Care Team | Description | +--------+ + + + + | 04/18/ | Abstract | [facility] [place] | [facility], | | | 2012 | | GASTROENTEROLOGY | [address]O [address] | | | | | [address] [place] | [place] | | | | | [address] [place], [place] | [place], [place] | | | | | [address] | [address] | | | | | [phone] | | | +--------+ + + + [...] [address] | | | | | | [place] | | | | | | [address] | | | | | | | | +--------+---------+ + + + documented as of this encounter Visit Diagnoses Not on filedocumented in this encounter"
--- OUTSIDE RECORDS SUMMARY | ~2019-10-22 | XMS | Encounter Summary ---
Demographics + + + | Address | [address] [facility] | | | [place] [address] | + + + | Home Phone [...] [place], [place] | | | | | [address] | | + + + + + Care Team Providers + +------+ + | Care Traffic Incident Management Manager Name | Role | Phone | + +------+ + PCP | Unavailable | + +------+ + Encounter Details +--------+ + + + + | Date | Type | Department | Care Team | Description | +--------+ + + + + | 08/21/ | Hospital | [facility] | | | | 1996 | Encounter | MED CTR LABORATORY | | | | | | [address] | | | | | | [place] | | | | | | [address] | | | | | | [phone] | | | +--------+ + + + [...] | | | | | [place] | | | | | | [address] | | | | | | | | +--------+---------+ + + + documented as of this encounter Visit Diagnoses Not on filedocumented in this encounter"
--- OUTSIDE RECORDS SUMMARY | ~2019-10-22 | XMS | Encounter Summary ---
Demographics + + + | Address | [address] [facility] | | | [place] [address] | + + + | Home Phone [...] [place] | | | | | [address] | | + + + + + Care Team Providers + +------+ + | Care Divisional Human Resources Director Name | Role | Phone | [...] + + | 09/10/ | Documentati | [facility] | Katharine Moncada, | Other (urgent | | 2019 | on | CARDIOLOGY [place] | Technologist | report) | | | | [address] | | | | | | [place] | | | | | | [address] | | | | | | [phone] | | | +--------+ + + + [...] [place] | | | | | | [address] | | | | | | | | +--------+---------+ + + + documented as of this encounter Visit Diagnoses Not on filedocumented in this encounter"
--- OUTSIDE RECORDS SUMMARY | ~2019-10-22 | XMS | Encounter Summary ---
Demographics + + + | Address | [address] [facility] | | | [place] [address] | + + + | Home Phone [...] [place] | | | | | [address] | | + + + + + Care Team Providers + +------+ + | Care Furniture Reproducer Name | Role | Phone | + +------+ + | Thierry Fry MD | PCP | | + +------+ + Encounter Details +--------+ + + + + | Date | Type | Department | Care Team | Description | +--------+ + + + + | 03/06/ | Hospital | [facility] | Katharine Cardona PA-C | Essential | | 2015 | Encounter | MED CTR LABORATORY | [address] | hypertension | | | | [address] [place] | [place] [address] | | | | | [place], [place] | [phone] | | | | | [address] | | | | | | [phone] | | | +--------+ + + + [...] 0 | | | | (VITAMIN D-3) [address] | mouth Once a week. | | [...] + + + +---------+ + + | [place]-3 Fatty | Take 1,000 mg by | 60 each | 5 | 03/09/20 | | | Acids (FISH OIL | mouth 2 times daily. | | | 15 | 9 | | CONCENTRATE) 1000 MG | | | | | | | CAPS | | | | | | + + + +---------+ + + | [place]-3 Fatty | Take 1,000 mg by | [...] | | | | | [place] | | | | | | [address] | | | | | | | [...] mL/min/1.73m2 | [facility] | | | MICRONESIAN | RATE,ESTIMATED | | MEDICAL | | | | mL/min/1.70b0Szaf than | | CENTER - | | [...] | 9.6 | 8.3 - 10.5 | [facility] | | | | | mg/dL | [facility] | | | | | | MEDICAL | | | | | | CENTER - | | | | | | LABORATORY | | + + + + + + | Albumin | 4.1 | 3.2 - 5.0 g/dL | [facility] | | | | | | [facility] | | | | | [...] [address] | [place] | [phone] | | [facility] | | [address] | | | - LABORATORY | | | | + + + + + documented in this encounter Visit Diagnoses + + | Diagnosis | + + | Essential hypertension Unspecified essential hypertension | + + documented in this encounter"
--- OUTSIDE RECORDS SUMMARY | ~2019-10-22 | XMS | Encounter Summary ---
Demographics + + + | Address | [address] [facility] | | | [place] [address] | + + + | Home Phone [...] [place], [place] | | | | | [address] | | + + + + + Care Team Providers + +------+ + | Care Acid Purification Equipment Operator Name | Role | Phone | + +------+ + PCP | Unavailable | + +------+ + Encounter Details +--------+ + + + + | Date | Type | Department | Care Team | Description | +--------+ + + + + | 12/27/ | Hospital | [facility] | | | | 1997 | Encounter | MED CTR EMERGENCY | | | | | | [address] | | | | | | [place] | | | | | | [address] | | | | | | [phone] | | | +--------+ + + + [...] | | | | | [place] | | | | | | [address] | | | | | | | | +--------+---------+ + + + documented as of this encounter Visit Diagnoses Not on filedocumented in this encounter"
--- OUTSIDE RECORDS SUMMARY | ~2019-10-22 | XMS | Encounter Summary ---
Demographics + + + | Address | [address] [facility] | | | [place] [address] | + + + | Home Phone [...] [place], [place] | | | | | [address] | | + + + + + Care Team Providers + +------+ + | Care Manager Lpn Name | Role | Phone | + +------+ + PCP | Unavailable | + +------+ + Encounter Details +--------+ + + + + | Date | Type | Department | Care Team | Description | +--------+ + + + + | 06/19/ | Hospital | [facility] | | | | 1991 - | Encounter | MED CTR GENERIC PSY | | | | | | CONV DEPT [address] | | | | 06/24/ | | [place], | | | | 1991 | | [place] [address] | | | | | | [phone] | | | +--------+ + + + [...] [place] | | | | | | [address] | | | | | | | | +--------+---------+ + + + documented as of this encounter Visit Diagnoses Not on filedocumented in this encounter"
--- OUTSIDE RECORDS SUMMARY | ~2019-10-22 | XMS | Encounter Summary ---
Demographics + + + | Address | [address] [facility] | | | [place] [address] | + + + | Home Phone | | + + + | Preferred Language | Unknown | + + + | Marital Status | | + + + | Hinduism Affiliation | 1013 | + + + [...] [place], [place] | | | | | [address] | | + + + + + Care Team Providers + +------+ + | Care Morning Caregiver Name | Role | Phone | + +------+ + PCP | Unavailable | + +------+ + Encounter Details +--------+ + + + + | Date | Type | Department | Care Team | Description | +--------+ + + + + | 06/23/ | Hospital | [facility] | | | | 2000 | Encounter | MED CTR GENERIC OP | | | | | | CONV DEPT [address] | | | | | | [place], | | | | | | [place] [address] | | | | | | [phone] | | | +--------+ + + + [...] | | | | | [place] | | | | | | [address] | | | | | | | | +--------+---------+ + + + documented as of this encounter Visit Diagnoses Not on filedocumented in this encounter"
--- OUTSIDE RECORDS SUMMARY | ~2019-10-22 | XMS | Encounter Summary ---
Demographics + + + | Address | [address] [facility] | | | [place] [address] | + + + | Home Phone [...] [place] | | | | | [address] | | + + + + + Care Team Providers + +------+ + | Care Glass Forming Engineer Name | Role | Phone | + +------+ + | Thierry Fry MD | PCP | | + +------+ + Encounter Details +--------+ + + + + | Date | Type | Department | Care Team | Description | +--------+ + + + + | 03/06/ | Hospital | [facility] | Katharine Cardona PA-C | Essential | | 2015 | Encounter | MED CTR LABORATORY | [address] | hypertension | | | | [address] [place] | [place] [address] | | | | | [place], [place] | [phone] | | | | | [address] | | | | | | [phone] | | | +--------+ + + + [...] 0 | | | | (VITAMIN D-3) [address] | mouth Once a week. | | [...] + + + +---------+ + + | [place]-3 Fatty | Take 1,000 mg by | 60 each | 5 | 03/09/20 | | | Acids (FISH OIL | mouth 2 times daily. | | | 15 | 9 | | CONCENTRATE) 1000 MG | | | | | | | CAPS | | | | | | + + + +---------+ + + | [place]-3 Fatty | Take 1,000 mg by | [...] | | | | | [place] | | | | | | [address] | | | | | | | [...] mL/min/1.73m2 | [facility] | | | CROATIAN | RATE,ESTIMATED | | MEDICAL | | | | mL/min/1.46x7Vgfe than | | CENTER - | | [...] | 9.6 | 8.3 - 10.5 | [facility] | | | | | mg/dL | [facility] | | | | | | MEDICAL | | | | | | CENTER - | | | | | | LABORATORY | | + + + + + + | Albumin | 4.1 | 3.2 - 5.0 g/dL | [facility] | | | | | | [facility] | | | | | | [...] [address] | [place] | [phone] | | [facility] | | [address] | | | - LABORATORY | | | | + + + + + documented in this encounter Visit Diagnoses + + | Diagnosis | + + | Essential hypertension Unspecified essential hypertension | + + documented in this encounter"
--- OUTSIDE RECORDS SUMMARY | ~2019-10-22 | XMS | Encounter Summary ---
Demographics + + + | Address | [address] [facility] | | | [place] [address] | + + + | Home Phone [...] + + + + + | Araceli iSbley | ECON | [place] | | | | | [address] | | + + + + + Care Team Providers + +------+ + | Care Mental Health Professional Name | Role | Phone | [...] Description | +--------+--------+ + + + | 12/03/ | Refill | [facility] | Frandy Teresa, | Medication Refill | | 2014 | | NEUROSURGERY [address] | DO [address] | | | | | [address] | [address] [place], [place] | | | | | [place], [place] | [id number] | | | | | [address] | | | | | | [phone] | | | +--------+--------+ + + + [...] | | | | | [place] | | | | | | [address] | | | | | | | | +--------+---------+ + + + documented as of this encounter Visit Diagnoses Not on filedocumented in this encounter"
--- OUTSIDE RECORDS SUMMARY | ~2019-10-22 | XMS | Encounter Summary ---
Demographics + + + | Address | [address] [facility] | | | [place] [address] | + + + | Home Phone [...] [place] | | | | | [address] | | + + + + + Care Team Providers + +------+ + | Care Political Reporter Name | Role | Phone | + +------+ + | Basim Bolanos MD | PCP | | + +------+ + Encounter Details +--------+ + + + + | Date | Type | Department | Care Team | Description | +--------+ + + + + | 04/18/ | Abstract | [facility] [place] | [facility], | | | 2012 | | GASTROENTEROLOGY | [address] | | | | | [address] [place] | [place], [address] | | | | | [address] [place], [place] | [place], [place] | | | | | [address] | [address] | | | | | [phone] | | | +--------+ + + + [...] | | | | | [place] | | | | | | [address] | | | | | | | | +--------+---------+ + + + documented as of this encounter Visit Diagnoses Not on filedocumented in this encounter"
--- OUTSIDE RECORDS SUMMARY | ~2019-10-22 | XMS | Encounter Summary ---
Demographics + + + | Address | [address] [facility] | | | [place] [address] | + + + | Home Phone [...] [place], [place] | | | | | [address] | | + + + + + Care Team Providers + +------+ + | Care Letterer Name | Role | Phone | [...] Location | | | | | | [phone] | | | +--------+ + + + [...] [place] | | | | | | [address] | | | | | | | | +--------+---------+ + + + documented as of this encounter Visit Diagnoses Not on filedocumented in this encounter"
--- OUTSIDE RECORDS SUMMARY | ~2019-10-22 | XMS | Encounter Summary ---
Demographics + + + | Address | [address] [facility] | | | [place] [address] | + + + | Home Phone [...] [place] | | | | | [address] | | + + + + + Care Team Providers + +------+ + | Care Shuttle Driver Name | Role | Phone | [...] + | 07/15/ | Telephone | [facility] | Russell Alfaro PA | Other | | 2016 | | SLEEP DISORDER [address] | [address] | | | | | [address] [place] | [place] | | | | | [place] [address] | [address] | | | | | [phone] | | | +--------+ + + + [...] [place] | | | | | | [address] | | | | | | | | +--------+---------+ + + + documented as of this encounter Visit Diagnoses Not on filedocumented in this encounter"
--- OUTSIDE RECORDS SUMMARY | ~2019-10-22 | XMS | Encounter Summary ---
Demographics + + + | Address | [address] [facility] | | | [place] [address] | + + + | Home Phone [...] [place] | | | | | [address] | | + + + + + Care Team Providers + +------+ + | Care Pals Nurse Name | Role | Phone | [...] | | | | | | | [address] | | | | | | | Phone: | | | | | | | [phone] | | | | | | | Fax: | | | | | | | [phone] | | +--------+ + + + + + Reason for Visit + + + | Reason | Comments | + + + | Follow-up | 4 Week PO | + + + Encounter Details +--------+---------+ + + + | Date | Type | Department | Care Team | Description | +--------+---------+ + + + | 07/25/ | Office | [facility] | Frandy Teresa, | Lumbar spondylosis | | 2013 | Visit | NEUROSURGERY [address] | DO [address] | (Primary Dx); S/P | | | | [address] | [address] [place], [place] | lumbar fusion | | | | [place], [place] | [address] | | | | | [address] | | | | | | [phone] | | | +--------+---------+ + + + [...] m the original. Frandy Teresa DO [address] [facility] [place], [place] [address] FAX: NEUROSURGERY SURGICAL FOLLOW-UP CHIEF COMPLAINT: Chief [...] Take 15 mg by mouth nightl y. [place]-3 Fatty Acids (FISH OIL CONCENTRATE) 1000 [...] + | MISCELLANEOUS LAB | | | [phone] | + +---------+ + + | MISCELANIOUS LAB | | | [phone] | + +---------+ + + documented in this encounter Visit Diagnoses + + | Diagnosis | + + | Lumbar spondylosis - Primary Lumbosacral spondylosis without myelopathy | + + | S/P lumbar fusion Arthrodesis status | + + documented in this encounter
--- OUTSIDE RECORDS SUMMARY | ~2019-10-22 | XMS | Encounter Summary ---
Demographics + + + | Address | [address] [facility] | | | [place] [address] | + + + | Home Phone [...] [place] | | | | | [address] | | + + + + + Care Team Providers + +------+ + | Care Continuous Improvement Manager Name | Role | Phone | [...] | [address] [place] | [place], [address] | | | | | [address] [place], [place] | [place], [place] | | | | | [address] | [address] | | | | | [phone] | | | +--------+ + + + [...] [place] | | | | | | [address] | | | | | | | | +--------+---------+ + + + documented as of this encounter Visit Diagnoses Not on filedocumented in this encounter"
--- OUTSIDE RECORDS SUMMARY | ~2019-10-22 | XMS | Encounter Summary ---
Demographics + + + | Address | [address] [facility] [address] | | | [place] [address] | + + + | Home Phone [...] [place] | | | | | [address] | | + + + + + Care Team Providers + +------+ + | Care Aircrewman Name | Role | Phone | + +------+ + | Basim Bolanos MD | PCP | | + +------+ + Encounter Details +--------+ + + + + | Date | Type | Department | Care Team | Description | +--------+ + + + + | 03/30/ | Hospital | [facility] | Tyrese Neely MD | | | 2012 | Encounter | MED CTR MP INTRA OP | [address], [place] | | | | | [address] | [address] [place], [place] | | | | | [place], [place] | [address] | | | | | [address] | | | | | | [phone] | | | +--------+ + + + [...] + + + +---------+ + + | Ovid-3 Fatty | Take 1,000 mg by | [...] + + + +---------+ + + | sucralfate | Take 10 mLs by mouth | 420 mL | 1 | 03/06/20 | | | (CARAFATE) 1 g/10 mL | 4 times daily. | | | 13 | 4 | | suspension | | | | | | + [...] | 04/10/ | Office | Cardiology | Desiere Peterson DO | | | 2019 | Visit | | [address] | | | | | | [place] | | | | | | [address] | | | | | | | | +--------+---------+ + + + documented as of this encounter Procedures + +--------+ + + + | Procedure Name | Priori | Date/Time | Associated Diagnosis | Comments | | | ty | | | | + +--------+ + + + | HELICOBACTER PYLORI | Routin | 03/30/2013 | | Results for this | | BIOPSY | e | 4:25 PM | | procedure are in the | | | | PDT | | results section. | + +--------+ + + + | HELICOBACTER PYLORI | Routin | 03/30/2013 | | Results for this | | BIOPSY | e | 4:25 PM | | procedure are in the | | | | PDT | | results section. | + +--------+ + + + documented in this encounter Results Helicobactor pylori Biopsy (03/30/2013 4:25 PM PDT) + + + + + + | Component | Value | Ref Range | Performed | Pathologist | | | | | At | Signature | + + + + + + | GASTRIC | Negative for Urease | | [facility] | | | [facility] | | | [facility] | | | UREASE TEST | | | [facility] | | | [...] + | [facility] | [address] | [place] | [phone] | | [facility] | | [address] | | | - LABORATORY | | | | + + + + + | [facility] | [address] | [place] | | | [facility] | | [address] | | | - LABORATORY | | | | + + + + + Helicobactor pylori Biopsy (03/30/2013 4:25 PM PDT) + + + + + + | Component | Value | Ref Range | Performed | Pathologist | | | | | At | Signature | + + + + + + | GASTRIC | H. PYLORI BIOPSY: | | [facility] | | | BIOPSY | Negative for Urease | | [facility] | | | UREASE TEST | | | MEDICAL | | | | | | CENTER - | | | | | | LABORATORY | | + + + + + + + + | Specimen | + + | Soft tissue sample | | (specimen) - Tissue | | (Other) | + + + + + | Narrative | Performed At | + + + | Collect By: | [facility] | | | [facility] | [facility]ENTER | | | - LABORATORY | + + + + + + + + | Performing | Address | City/State/Zipcode | Phone Number | | Organization | | | | + + + + + | [facility] | [address] | [place], [place] | [phone] | | [facility] | | [address] | | | - LABORATORY | | | | + + + + + | [facility] | [address] | [place], [place] | | | [facility] | | [address] | | | - LABORATORY | | | | + + + + + documented in this encounter Visit Diagnoses Not on filedocumented in this encounter"
--- OUTSIDE RECORDS SUMMARY | ~2019-10-22 | XMS | Encounter Summary ---
Demographics + + + | Address | [address] [facility] | | | [place] [address] | + + + | Home Phone [...] [place], [place] | | | | | [address] | | + + + + + Care Team Providers + +------+ + | Care Peripatologist Name | Role | Phone | + +------+ + PCP | Unavailable | + +------+ + Encounter Details +--------+ + + + + | Date | Type | Department | Care Team | Description | +--------+ + + + + | 02/02/ | Hospital | [facility] | | | | 1997 - | Encounter | MED CTR GENERIC PSY | | | | | | CONV DEPT [address] | | | | 02/05/ | | [place], | | | | 1997 | | [place] [address] | | | | | | [phone] | | | +--------+ + + + [...] [place] | | | | | | [address] | | | | | | | | +--------+---------+ + + + documented as of this encounter Visit Diagnoses Not on filedocumented in this encounter"
--- OUTSIDE RECORDS SUMMARY | ~2019-10-22 | XMS | Encounter Summary ---
Demographics + + + | Address | [address] [facility] | | | [place] [address] | + + + | Home Phone [...] [place] | | | | | [address] | | + + + + + Care Team Providers + +------+ + | Care Electric Powerline Examiner Name | Role | Phone | [...] [address] | [address] [place], [place] | | | | | [place], [place] | [address] | | | | | [address] | | | | | | [phone] | | | +--------+ + + + [...] [place] | | | | | | [address] | | | | | | | [...] + | MISCELLANEOUS LAB | | | [phone] | + +---------+ + + | MISCELANIOUS LAB | | | [phone] | + +---------+ + + documented in this encounter Visit Diagnoses + + | Diagnosis | + + | Back pain - Primary Backache, unspecified | + + documented in this encounter"
--- OUTSIDE RECORDS SUMMARY | ~2019-10-22 | XMS | Encounter Summary ---
Demographics + + + | Address | [address] [facility] | | | [place] [address] | + + + | Home Phone [...] [place] | | | | | [address] | | + + + + + Care Team Providers + +------+ + | Care Refrigeration Installer Name | Role | Phone | [...] [address] | [address] [place], [place] | Anxiety; Anemia; | | | | [place] | [address] | Irregular heartbeat; | | | | [address] | | Depression; | | | | [phone] | | Migraine; | | | | [...] [place] | | | | | | [address] | | | | | | | [...]
--- OUTSIDE RECORDS SUMMARY | ~2019-10-22 | XMS | Encounter Summary ---
Demographics + + + | Address | [address] [facility] | | | [place] [address] | + + + | Home Phone [...] [place], [place] | | | | | [address] | | + + + + + Care Team Providers + +------+ + | Care Customer Account Specialist Name | Role | Phone | + +------+ + PCP | Unavailable | + +------+ + Encounter Details +--------+ + + + + | Date | Type | Department | Care Team | Description | +--------+ + + + + | 06/07/ | Hospital | [facility] | | | | 1991 - | Encounter | MED CTR GENERIC OP | | | | | | CONV DEPT [address] | | | | 10/07/ | | [place], | | | | 1991 | | [place] [address] | | | | | | [phone] | | | +--------+ + + + [...] [place] | | | | | | [address] | | | | | | | | +--------+---------+ + + + documented as of this encounter Visit Diagnoses Not on filedocumented in this encounter"
--- OUTSIDE RECORDS SUMMARY | ~2019-10-22 | XMS | Encounter Summary ---
Demographics + + + | Address | [address] [facility] | | | [place] [address] | + + + | Home Phone [...] [place], [place] | | | | | [address] | | + + + + + Care Team Providers + +------+ + | Care Ironworker Helper Shop Name | Role | Phone | + +------+ + PCP | Unavailable | + +------+ + Encounter Details +--------+ + + + + | Date | Type | Department | Care Team | Description | +--------+ + + + + | 02/02/ | Hospital | [facility] | Serafin Bautista | | | 2012 | Encounter | MED CTR XRAY [address] | T, MD [address] | | | | | [place] | [address] [place], [place] | | | | | [place] [address] | [address] | | | | | [phone] | | | +--------+ + + + [...] [place] | | | | | | [address] | | | | | | | [...] At | + + + | [facility] Diagnostic Imaging Department | [facility] | | [address] [facility] | [facility] | | PROCEDURE: EPIDURAL STEROID | [...] Transcribed Date/Time: | | | 02/03/2012 18:45 Oncology Social Work: <Electronically Signed | | | by Serafin Bautista MD> 02/14/12 0916 | | + + + + + | Procedure Note | + + | Juan, Rad Conversion - 11/30/2013 5:06 PM [facility] | | Diagnostic Imaging Department | | [address] [facility] | | | | | | [...] | Transcribed Date/Time: 02/03/2012 18:45 | | Oncology Social Work: LaMAHIN | | <Electronically Signed by Serafin [...]
--- OUTSIDE RECORDS SUMMARY | ~2019-10-22 | XMS | Encounter Summary ---
Demographics + + + | Address | [address] [facility] | | | [place] [address] | + + + | Home Phone [...] [place], [place] | | | | | [address] | | + + + + + Care Team Providers + +------+ + | Care Sports Health Club Membership Advisors Name | Role | Phone | + +------+ + PCP | Unavailable | + +------+ + Encounter Details +--------+ + + + + | Date | Type | Department | Care Team | Description | +--------+ + + + + | 07/17/ | Hospital | [facility] | | | | 1997 - | Encounter | MED CTR GENERIC PSY | | | | | | CONV DEPT [address] | | | | 07/25/ | | [place], | | | | 1997 | | [place] [address] | | | | | | [phone] | | | +--------+ + + + [...] [place] | | | | | | [address] | | | | | | | | +--------+---------+ + + + documented as of this encounter Visit Diagnoses Not on filedocumented in this encounter"
--- OUTSIDE RECORDS SUMMARY | ~2019-10-22 | XMS | Encounter Summary ---
Demographics + + + | Address | [address] [facility] | | | [place] [address] | + + + | Home Phone [...] [place] | | | | | [address] | | + + + + + Care Team Providers + +------+ + | Care Swimming Pool Cleaner Name | Role | Phone | [...] + + | 03/26/ | Telephone | [facility] | Thierry Fry | Medication Prior | | 2015 | | MEDICINE [facility] Daniel | MD Lisa [address] | Authorization | | | | [facility] | [facility] | (Dexilant 60Mg) | | | | [place] [address] | [address] | | | | | [phone] | | | +--------+ + + + [...] | | | | | | [place] | | | | | | [address] | | | | | | | | +--------+---------+ + + + documented as of this encounter Visit Diagnoses Not on filedocumented in this encounter"
--- OUTSIDE RECORDS SUMMARY | ~2019-10-22 | XMS | Encounter Summary ---
Demographics + + + | Address | [address] [facility] | | | [place] [address] | + + + | Home Phone [...] [place] | | | | | [address] | | + + + + + Care Team Providers + +------+ + | Care Mac Artist Name | Role | Phone | + [...] + + | 07/30/ | Telephone | [facility] | Ashley Chávez | Talia (Patient | | 2019 | | CARDIOLOGY [place] Abad, Netbackup Admin | mariela ) | | | | [address] | | | | | | [place], [place] | | | | | | [address] | | | | | | [phone] | | | +--------+ + + + [...] [place] | | | | | | [address] | | | | | | | | +--------+---------+ + + + documented as of this encounter Visit Diagnoses Not on filedocumented in this encounter"
--- OUTSIDE RECORDS SUMMARY | ~2019-10-22 | XMS | Encounter Summary ---
Demographics + + + | Address | [address] [facility] | | | [place] [address] | + + + | Home Phone [...] [place] | | | | | [address] | | + + + + + Care Team Providers + +------+ + | Care Dowel Inserting Machine Operator Name | Role | Phone | + +------+ + | Basim Bolanos MD | PCP | | + +------+ + Encounter Details +--------+ + + + + | Date | Type | Department | Care Team | Description | +--------+ + + + + | 03/01/ | Abstract | [facility] [place] | [facility], | | | 2012 | | GASTROENTEROLOGY | FORTUNATO Thomas [address] | | | | | [address] [place] | [place], [address] | | | | | [address] [place], [place] | [place], [place] | | | | | [address] | [address] | | | | | [phone] | | | +--------+ + + + [...] [place] | | | | | | [address] | | | | | | | | +--------+---------+ + + + documented as of this encounter Visit Diagnoses Not on filedocumented in this encounter"
--- OUTSIDE RECORDS SUMMARY | ~2019-10-22 | XMS | Encounter Summary ---
Demographics + + + | Address | [address] [facility] | | | [place] [address] | + + + | Home Phone [...] [place] | | | | | [address] | | + + + + + Care Team Providers + +------+ + | Care Candy Maker Name | Role | Phone | [...] + + | 08/22/ | Documentati | [facility] | Katharine Moncada, | Other (urgent | | 2019 | on | CARDIOLOGY [place] | Technologist | report) | | | | [address] | | | | | | [place] | | | | | | [address] | | | | | | [phone] | | | +--------+ + + + [...] [place] | | | | | | [address] | | | | | | | | +--------+---------+ + + + documented as of this encounter Visit Diagnoses Not on filedocumented in this encounter"
--- OUTSIDE RECORDS SUMMARY | ~2019-10-22 | XMS | Encounter Summary ---
Demographics + + + | Address | [address] [facility] | | | [place] [address] | + + + | Home Phone [...] [place] | | | | | [address] | | + + + + + Care Team Providers + +------+ + | Care Helper Electrical Name | Role | Phone | + [...] + + | 03/04/ | Telephone | [facility] | Baudilio Newman | Other (Plavix) | | 2014 | | NEUROLOGY [place]UR[place] | MD Pollo Need updated | | | | | [address], | address | | | | | [address] [place] | | | | | | [place] [address] | | | | | | [phone] | | | +--------+ + + + [...] [place] | | | | | | [address] | | | | | | | | +--------+---------+ + + + documented as of this encounter Visit Diagnoses Not on filedocumented in this encounter"
--- OUTSIDE RECORDS SUMMARY | ~2019-10-22 | XMS | Encounter Summary ---
Demographics + + + | Address | [address] [facility] | | | [place] [address] | + + + | Home Phone [...] [place] | | | | | [address] | | + + + + + Care Team Providers + +------+ + | Care Leather Softener Name | Role | Phone | + [...] + + | 08/16/ | Telephone | [facility] | Ashley Chávez | Other (Called to | | 2018 | | CARDIOLOGY [place] | Pollo, Senior Network Administrator | tell patient what | | | | [address] | | Nicholas said. ) | | | | [address] | | | | | | [place] | | | | | | [address] | | | | | | [phone] | | | +--------+ + + + [...] [place] | | | | | | [address] | | | | | | | | +--------+---------+ + + + documented as of this encounter Visit Diagnoses Not on filedocumented in this encounter"
--- OUTSIDE RECORDS SUMMARY | ~2019-10-22 | XMS | Encounter Summary ---
Demographics + + + | Address | [address] [facility] | | | [place] [address] | + + + | Home Phone [...] [place] | | | | | [address] | | + + + + + Care Team Providers + +------+ + | Care Medical Transcriptionist Name | Role | Phone | + [...] + + | 09/10/ | Documentati | [facility] | Katharine Moncada, | Other (urgent | | 2019 | on | CARDIOLOGY [place] | Technologist | report) | | | | [address] | | | | | | [place] | | | | | | [address] | | | | | | [phone] | | | +--------+ + + + [...] [place] | | | | | | [address] | | | | | | | | +--------+---------+ + + + documented as of this encounter Visit Diagnoses Not on filedocumented in this encounter"
--- OUTSIDE RECORDS SUMMARY | ~2019-10-22 | XMS | Encounter Summary ---
Demographics + + + | Address | [address] [facility] | | | [place] [address] | + + + | Home Phone [...] [place] | | | | | [address] | | + + + + + Care Team Providers + +------+ + | Care Sales Operations Name | Role | Phone | + +------+ + | Natalee Andersen NP | PCP | | + +------+ + Encounter Details +--------+ + + + + | Date | Type | Department | Care Team | Description | +--------+ + + + + | 06/25/ | Hospital | [facility] | Frandy Teresa, | Acquired | | 2014 | Encounter | MED CTR XRAY [address] | DO [address] | spondylolisthesis | | | | [place] | [address] [place], [place] | | | | | [place] [address] | [address] | | | | | [phone] | | | +--------+ + + + [...] + + + +---------+ + + | [place]-3 Fatty | Take 1,000 mg by | [...] [place] | | | | | | [address] | | | | | | | | +--------+---------+ + + + documented as of this encounter Visit Diagnoses + + | Diagnosis | + + | Acquired spondylolisthesis | + + documented in this encounter"
--- OUTSIDE RECORDS SUMMARY | ~2019-10-22 | XMS | Encounter Summary ---
Demographics + + + | Address | [address] [facility] | | | [place] [address] | + + + | Home Phone [...] [place] | | | | | [address] | | + + + + + Care Team Providers + +------+ + | Care Japanese Interpreter Name | Role | Phone | + [...] | | | | | | | [address] | | | | | | | Phone: | | | | | | | [phone] | | | | | | | Fax: | | | | | | | [phone] | | +--------+ + + + + + Reason for Visit + + + | Reason | Comments | + + + | Follow-up | 3 mo po | + + + Encounter Details +--------+---------+ + + + | Date | Type | Department | Care Team | Description | +--------+---------+ + + + | 09/27/ | Office | [facility] | Frandy Teresa, | Lumbar spondylosis | | 2013 | Visit | NEUROSURGERY [address] | DO [address] | (Primary Dx); S/P | | | | [address] | [address] [place], [place] | lumbar fusion | | | | [place], [place] | [address] | | | | | [address] | | | | | | [phone] | | | +--------+---------+ + + + [...] Frandy Teresa DO [address] [facility] [place] [address] FAX: NEUROSURGERY FOLLOW-UP CHIEF COMPLAINT: Chief Complaint [...] Laterality: N/A; Surgeon: Frandy castellanos DO; [facility] CURRENT MEDICATIONS: Current Outpatient Prescriptions [...] Take 15 mg by mouth nightl y. Finley-3 Fatty Acids (FISH OIL CONCENTRATE) 1000 MG [...] | | | | | [place], [place] | | | | | | [address] | | | | | | | [...]
--- OUTSIDE RECORDS SUMMARY | ~2019-10-22 | XMS | Encounter Summary ---
Demographics + + + | Address | [address] [facility] | | | [place] [address] | + + + | Home Phone [...] [place], [place] | | | | | [address] | | + + + + + Care Team Providers + +------+ + | Care Marketing Producer Name | Role | Phone | + [...] Location | | | | | | [phone] | | | +--------+ + + + [...] [place] | | | | | | [address] | | | | | | | | +--------+---------+ + + + documented as of this encounter Visit Diagnoses Not on filedocumented in this encounter"
--- OUTSIDE RECORDS SUMMARY | ~2019-10-22 | XMS | Encounter Summary ---
Demographics + + + | Address | [address] [facility] | | | [place] [address] | + + + | Home Phone [...] Author + + + | Author | [facility] | + + + | Organization | [facility] | + + + | Address | Unknown | + + + | Phone | Unavailable | + + + Support + + + + + | Name | Relationship | Address | Phone | + + + + + | Kelsy Bautista | ECON | [address] | | | | | [place] | | | | | [address] | | + + + + + Care Team Providers + +------+ + | Care Laboratory Animal Caretaker Name | Role | Phone | + [...] [address] | | | | | | [place], [place] | | | | | | [address] | | | | | | [phone] | | | +--------+ + + + [...] as of this encounter Progress Notes Interface, Wool Sorter In - 12/11/2006 5:03 AM [facility] [...]
--- OUTSIDE RECORDS SUMMARY | ~2019-10-22 | XMS | Encounter Summary ---
Demographics + + + | Address | [address] [facility] | | | [place] [address] | + + + | Home Phone [...] | [facility] | | | and [place] | + + + | Address | Unknown | + + + | Phone | Unavailable | + + + Support + + + + + | Name | Relationship | Address | Phone | + + + + + | Araceli Sibley | ECON | [place] | | | | | [address] | | + + + + + Care Team Providers + +------+ + | Care Life Scientist Name | Role | Phone | + [...] + + | 04/30/ | Office | [facility] | Russell Alfaro PA | ROGERS on CPAP (Primary | | 2015 | Visit | SLEEP DISORDER [address] | [address] | Dx) | | | | [address] [place] | [place] | | | | | [place] [address] | [address] | | | | | [phone] | | | +--------+---------+ + + + [...] PDTFormatting of this note might be di fferent from the original. 04/30/15 1100 [place] Depression Inventory-II Depression Score 9 - Minimal depression Insomnia Severity Index Insomnia Severity Index 13 [place] Sleepiness Scale Sitting and reading 3 Watching [...] nasal obtained from: [facility] [place] pressure: 11-20 cm Median: 12.1 cm 95%: 14.6 cm maximum: 15.8 cm Nights using CPAP: 358/365 % of nights >4 hours: 85% average usage (all nights): 6:49 average usage (nights used): 6:57 AHI: 2.8 Pat comes in for CPAP compliance. She is [...] appro priate paperwork. Thirty minutes were spent [id number]-es-[id number], with the majority of time spent i [...] | | | | | [place], [place] | | | | | | [address] | | | | | | | | +--------+---------+ + + + documented as of this encounter Visit Diagnoses + + | Diagnosis | + + | ROGERS on CPAP - Primary Obstructive sleep apnea (adult) (pediatric) | + + documented in this encounter"
--- OUTSIDE RECORDS SUMMARY | ~2019-10-22 | XMS | Encounter Summary ---
Demographics + + + | Address | [address] [facility] | | | [place] [address] | + + + | Home Phone | | + + + | Preferred Language | Unknown | + + + | Marital Status | Single | + + + | Mormonism Affiliation | Unknown | + + + [...] [place] | | | | | [address] | | + + + + + Care Team Providers + +------+ + | Care Tar Roofer Name | Role | Phone | + [...] Clinic | | | | | | [facility], [address] | | | | | | [place], [place] | | | | | | [address] | | | | | | [phone] | | | +--------+ + + + [...] as of this encounter Progress Notes Interface, Control Clerk In - 12/11/2006 5:[address] [facility] DATE: 07/03/97 INFECTIOUS DISEASE [...]
--- OUTSIDE RECORDS SUMMARY | ~2019-10-22 | XMS | Encounter Summary ---
Demographics + + + | Address | [address] [facility] | | | [place] [address] | + + + | Home Phone [...] [place] | | | | | [address] | | + + + + + Care Team Providers + +------+ + | Care Leather Grader Name | Role | Phone | + [...] + | 07/29/ | Telephone | [facility] | Frandy Teresa, | Other (multiple | | 2013 | | NEUROSURGERY [address] | DO [address] | questions) | | | | [address] | [address] [place], [place] | | | | | [place], [place] | [address] | | | | | [address] | | | | | | [phone] | | | +--------+ + + + [...] | | | | | [place] | | | | | | [address] | | | | | | | | +--------+---------+ + + + documented as of this encounter Visit Diagnoses Not on filedocumented in this encounter"
--- OUTSIDE RECORDS SUMMARY | ~2019-10-22 | XMS | Encounter Summary ---
Demographics + + + | Address | [address] [address] [address] [facility] [address] | | | [place] [address] | + + + | Home Phone [...] [place] | | | | | [address] | | + + + + + Care Team Providers + +------+ + | Care Jacquard Loom Fixer Name | Role | Phone | + [...] | | | spondylolist | | [address] | | | | | hesis | | [place], | | | | | Spinal | | [place] [address] | | | | | stenosis, | | Phone: | | | | | lumbar | | [phone] | | | | | region, | | Fax: | | | | | without | | [phone] | | | | | neurogenic | [...] + + | 07/02/ | Surgery | [facility] | Frandy Teresa, | MIS L5-S1 | | 2013 | | MED CTR OR INTRA OP | DO [address] | TRANSFORAMINAL | | | | [address] | [address] [place], [place] | LUMBAR INTERBODY | | | | [place] | [id number] | FUSION | | | | [address] | | | | | | [phone] | | | +--------+---------+ + + + [...] might be different fro m the original. [facility] DISCHARGE SUMMARY PATIENT NAME: Cindy [...] Stable for discharge to SNF. DISPOSITION: SNF ([facility]) DISCHARGE MEDICATIONS Medications prior to admission [...] Take 15 mg by mouth nightl y. Spindale-3 Fatty Acids (FISH OIL CONCENTRATE) 1000 MG [...] sleeping. Follow lumbar precautions. PLAN FOR FOLLOW-UP:Dr. Tersea in 4 weeks Follow Up Appointments: No [...] + + + +---------+ + + | Spindale-3 Fatty | Take 1,000 mg by | [...] prophylaxis -DC plan: SNF versus home with [facility] any time. aria T Neff RN - 07/04/2014 6:56 PM PDTFoley cath dc'd and MARI drain dc'd no problems. Chris Lynn PA-C - 07/04/2014 7:[address] [facility] PROGRESS NOTE Pt. Name/Age/: Cindy Arndt 58 y.o. 1955 Med. Record Number: [id number] Date of admission: 07/02/2014 Subjective: The patient [...] home medications. D/C plan: Home tomorrow with [facility]. D/c mari drain and riley cath today. D/c wrapper selector. Patient Active Problem List Diagnosis LUMBAR DISC [...] signed by: Chris Nicole, 07/04/2014 7:45 [facility] Chris Lynn PA-C - 07/03/2014 7:[address] [facility] PROGRESS NOTE Pt. Name/Age/: Cindy Arndt 58 y.o. 1955 Med. Record Number: [id number] Date of admission: 07/02/2014 Subjective: The patient [...] Electronically signed by: Chris Nicole, 07/03/2014 7:13 [facility] Ton Johnston, KRIS - 07/03/2014 [...] | | | | | [place] | | | | | | [address] | | | | | | | [...] + | [facility] | [address] | [place], [place] | [phone] | | [facility] | | [address] | | | - LABORATORY | | | | + + + + + | [facility] | [address] | [place], [place] | | | [facility] | | [address] | | | - LABORATORY | | [...] + | [facility] | [address] | [place] | [phone] | | [facility] | | [address] | | | - LABORATORY | | | | + + + + + | [facility] | [address] | [place] | | | [facility] | | [address] | | | - LABORATORY | | [...] + | [facility] | [address] | [place], [place] | [phone] | | [facility] | | [address] | | | - LABORATORY | | | | + + + + + | [facility] | [address] | [place], [place] | | | [facility] | | [address] | | | - LABORATORY | | [...] + | [facility] | [address] | [place] | [phone] | | [facility] | | [address] | | | - LABORATORY | | | | + + + + + | [facility] | [address] | [place], [place] | | | [facility] | | [address] | | | - LABORATORY | | [...] + | [facility] | [address] | [place], [place] | [phone] | | [facility] | | [address] | | | - LABORATORY | | | | + + + + + | [facility] | [address] | [place] | | | [facility] | | [address] | | | - LABORATORY | | [...] + | [facility] | [address] | [place] | [phone] | | [facility] | | [address] | | | - LABORATORY | | | | + + + + + | [facility] | [address] | [place] | | | [facility] | | [address] | | | - LABORATORY | | [...] + | Performing | Address | City/State/[facility] | Phone Number | | Organization | | | | + + + + + | [facility] | [address] | [place] | [phone] | | [facility] | | [address] | | | - LABORATORY | | | | + + + + + | [facility] | [address] | [place] | | | [facility] | | [address] | | | - LABORATORY | | [...] + | [facility] | [address] | [place] | [phone] | | [facility] | | [address] | | | - LABORATORY | | | | + + + + + | [facility] | [address] | [place] | | | [facility] | | [address] | | | - LABORATORY | | [...] [address] | [place] | [phone] | | [facility] | | [address] | | | - LABORATORY | | | | + + + + + | [facility] | [address] | [place], [place] | | | [facility] | | [address] | | | - LABORATORY | | [...] | of hardware for posterior fusion from E3rjemnvf S1 with interbody hardware at L5-S1. The [...] + | MISCELLANEOUS LAB | | | [phone] | + +---------+ + + | MISCELANIOUS LAB | | | [phone] | + +---------+ + + POC Glucose [...] + | [facility] | [address] | [place] | [phone] | | [facility] | | [address] | | | - LABORATORY | | | | + + + + + | [facility] | [address] | [place] | | | [facility] | | [address] | | | - LABORATORY | | [...] + | [facility] | [address] | [place], [place] | [phone] | | [facility] | | [address] | | | - LABORATORY | | | | + + + + + | [facility] | [address] | [place] | | | [facility] | | [address] | | | - LABORATORY | | [...] | | | POC | | | [facility] | | | | | | MEDICAL [...] + | [facility] | [address] | [place] | [phone] | | [facility] | | [address] | | | - LABORATORY | | | | + + + + + | [facility] | [address] | [place] | | | [facility] | | [address] | | | - LABORATORY | | [...] + | [facility] | [address] | [place] | [phone] | | [facility] | | [address] | | | - LABORATORY | | | | + + + + + | [facility] | [address] | [place] | | | [facility] | | [address] | | | - LABORATORY | | [...] + | [facility] | [address] | [place], [place] | [phone] | | [facility] | | [address] | | | - LABORATORY | | | | + + + + + | [facility] | [address] | [place], [place] | | | [facility] | | [address] | | | - LABORATORY | | [...] ST. | [address] | [place] | | | [facility] | | [address] | | | - BLOOD BANK | [...] mLs | | Surgical | | 1:200,000 0.25-1:991052 % | | 14 12:42 | | [...]
--- OUTSIDE RECORDS SUMMARY | ~2019-10-22 | XMS | Encounter Summary ---
Demographics + + + | Address | [address] [facility] [address] | | | [place] [address] | + + + | Home Phone [...] [place], [place] | | | | | [address] | | + + + + + Care Team Providers + +------+ + | Care Manufacturer Name | Role | Phone | + +------+ + PCP | Unavailable | + +------+ + Encounter Details +--------+ + + + + | Date | Type | Department | Care Team | Description | +--------+ + + + + | 12/22/ | Hospital | [facility] | | | | 1993 - | Encounter | MED CTR GENERIC PSY | | | | | | CONV DEPT [address] | | | | 12/25/ | | [place], | | | | 1993 | | [place] [address] | | | | | | [phone] | | | +--------+ + + + [...] [place] | | | | | | [address] | | | | | | | | +--------+---------+ + + + documented as of this encounter Visit Diagnoses Not on filedocumented in this encounter"
--- OUTSIDE RECORDS SUMMARY | ~2019-10-22 | XMS | Encounter Summary ---
Demographics + + + | Address | [address] [address] [facility] [address] | | | [place] [address] | + + + | Home Phone [...] [place], [place] | | | | | [address] | | + + + + + Care Team Providers + +------+ + | Care Hair Worker Name | Role | Phone | + +------+ + PCP | Unavailable | + +------+ + Encounter Details +--------+ + + + + | Date | Type | Department | Care Team | Description | +--------+ + + + + | 12/09/ | Hospital | [facility] | Serafin Bautista | | | 2012 | Encounter | MED CTR XRAY [address] | T, MD [address] | | | | | [place] | ST [place], [place] | | | | | [place] [address] | [address] | | | | | [phone] | | | +--------+ + + + [...] [place] | | | | | | [address] | | | | | | | [...] Performed At | + + + | [facility] Diagnostic Imaging Department | [facility] | | [address] [facility] | [facility] | | PROCEDURE NOTE EPIDURAL | [...] Manohar Martinez Conversion - 11/30/2013 4:45 PM [facility] | | Diagnostic Imaging Department | | [address] [facility] | | | | | | [...] + + | Performing | Address | City/State/[facility] Cent[facility]ode | Phone Number | | Organization | | | | + +---------+ + + | [place] | | | | | [facility] | | | | + +---------+ + + documented in this encounter Visit Diagnoses Not on filedocumented in this encounter"
--- OUTSIDE RECORDS SUMMARY | ~2019-10-22 | XMS | Encounter Summary ---
Demographics + + + | Address | [address] [facility] [address] | | | [place] [address] | + + + | Home Phone [...] [place], [place] | | | | | [address] | | + + + + + Care Team Providers + +------+ + | Care Intensive Care Nurse Name | Role | Phone | + +------+ + PCP | Unavailable | + +------+ + Encounter Details +--------+ + + + + | Date | Type | Department | Care Team | Description | +--------+ + + + + | 02/24/ | Hospital | [facility] | | | | 1997 - | Encounter | MED CTR GENERIC PSY | | | | | | CONV DEPT [address] | | | | 02/26/ | | [place], | | | | 1997 | | [place] [address] | | | | | | [phone] | | | +--------+ + + + [...] [place] | | | | | | [address] | | | | | | | | +--------+---------+ + + + documented as of this encounter Visit Diagnoses Not on filedocumented in this encounter"
--- OUTSIDE RECORDS SUMMARY | ~2019-10-22 | XMS | Encounter Summary ---
Demographics + + + | Address | [address] [facility] [address] | | | [place] [address] | + + + | Home Phone [...] [place], [place] | | | | | [address] | | + + + + + Care Team Providers + +------+ + | Care Brewery Pumper Name | Role | Phone | + +------+ + PCP | Unavailable | + +------+ + Encounter Details +--------+ + + + + | Date | Type | Department | Care Team | Description | +--------+ + + + + | 12/31/ | Hospital | [facility] | | | | 1996 | Encounter | MED CTR XRAY [address] | | | | | | [place] | | | | | | [place] [address] | | | | | | [phone] | | | +--------+ + + + [...] | | | | | [place] | | | | | | [address] | | | | | | | | +--------+---------+ + + + documented as of this encounter Visit Diagnoses Not on filedocumented in this encounter"
--- OUTSIDE RECORDS SUMMARY | ~2019-10-22 | XMS | Encounter Summary ---
Demographics + + + | Address | [address] [facility] [address] | | | [place] [address] | + + + | Home Phone [...] [place] | | | | | [address] | | + + + + + Care Team Providers + +------+ + | Care Contracting Manager Name | Role | Phone | + +------+ + | Adriano Patrick MD | PCP | | + +------+ + Encounter Details +--------+ + + + + | Date | Type | Department | Care Team | Description | +--------+ + + + + | 06/12/ | Hospital | [facility] | Frandy Teresa, | No Show | | 2014 | Encounter | MED CTR | DO [address] | | | | | ELECTRODIAGNOSTICS | [address] [place], [place] | | | | | [address] [place] | [address] | | | | | [place] [address] | | | | | | [phone] | | | +--------+ + + + [...] [place] | | | | | | [address] | | | | | | | | +--------+---------+ + + + documented as of this encounter Visit Diagnoses Not on filedocumented in this encounter"
--- OUTSIDE RECORDS SUMMARY | ~2019-10-22 | XMS | Encounter Summary ---
Demographics + + + | Address | [address] [facility] [address] | | | [place] [address] | + + + | Home Phone [...] [place] | | | | | [address] | | + + + + + Care Team Providers + +------+ + | Care Mud Logger Name | Role | Phone | + [...] + + | 08/28/ | Telephone | [facility] | Ashley Chávez | Other (Patient has | | 2019 | | CARDIOLOGY [place] Abad[employer] | questions about | | | | [address] | | monitor. ) | | | | [place] | | | | | | [address] | | | | | | [phone] | | | +--------+ + + + [...] [place] | | | | | | [address] | | | | | | | | +--------+---------+ + + + documented as of this encounter Visit Diagnoses Not on filedocumented in this encounter"
--- OUTSIDE RECORDS SUMMARY | ~2019-10-22 | XMS | Encounter Summary ---
Demographics + + + | Address | [address] [facility] | | | [place] [address] | + + + | Home Phone [...] [place] | | | | | [address] | | + + + + + Care Team Providers + +------+ + | Care Educational Interpreter Name | Role | Phone | + +------+ + | Natalee Adnersen NP | PCP | | + +------+ + Reason for Visit +--------+ + | Reason | Comments | +--------+ + | Other | post op call | +--------+ + Encounter Details +--------+ + + + + | Date | Type | Department | Care Team | Description | +--------+ + + + + | 07/08/ | Telephone | [facility] | Frandy Teresa, | Other (post op call | | 2013 | | NEUROSURGERY [address] | DO [address] | ) | | | | [address] | [address] [place], [place] | | | | | [place], [place] | [address] | | | | | [address] | | | | | | [phone] | | | +--------+ + + + [...] | | | | | [place] | | | | | | [address] | | | | | | | | +--------+---------+ + + + documented as of this encounter Visit Diagnoses Not on filedocumented in this encounter"
--- OUTSIDE RECORDS SUMMARY | ~2019-10-22 | XMS | Encounter Summary ---
Demographics + + + | Address | [address] [facility] [address] | | | [place] [address] | + + + | Home Phone [...] [place] | | | | | [address] | | + + + + + Care Team Providers + +------+ + | Care Senior Mechanical Design Engineer Name | Role | Phone [...] + + | 08/20/ | Documentati | [facility] | Katharine Moncada, | Other (urgent | | 2019 | on | CARDIOLOGY [place] | Technologist | report) | | | | [address] | | | | | | [place] | | | | | | [address] | | | | | | [phone] | | | +--------+ + + + [...] [place] | | | | | | [address] | | | | | | | | +--------+---------+ + + + documented as of this encounter Visit Diagnoses Not on filedocumented in this encounter"
--- OUTSIDE RECORDS SUMMARY | ~2019-10-22 | XMS | Encounter Summary ---
Demographics + + + | Address | [address] [facility] | | | [place] [address] | + + + | Home Phone [...] [place] | | | | | [address] | | + + + + + Care Team Providers + +------+ + | Care Warp Hauler Name | Role | Phone | + [...] + + | 08/16/ | Documentati | [facility] | Katharine Moncada, | Other (urgent | | 2019 | on | CARDIOLOGY GENESIS | Technologist | report) | | | | [address] | | | | | | [place] | | | | | | [address] | | | | | | [phone] | | | +--------+ + + + [...] [place] | | | | | | [address] | | | | | | | | +--------+---------+ + + + documented as of this encounter Visit Diagnoses Not on filedocumented in this encounter"
--- OUTSIDE RECORDS SUMMARY | ~2019-10-22 | XMS | Encounter Summary ---
Demographics + + + | Address | [address] [facility] | | | [place] [address] | + + + | Home Phone [...] [place], [place] | | | | | [address] | | + + + + + Care Team Providers + +------+ + | Care Traditional Chinese Herbalist Name | Role | Phone | + +------+ + PCP | Unavailable | + +------+ + Encounter Details +--------+ + + + + | Date | Type | Department | Care Team | Description | +--------+ + + + + | 09/23/ | Hospital | [facility] | | | | 1994 | Encounter | MED CTR LABORATORY | | | | | | [address] | | | | | | [place] | | | | | | [address] | | | | | | [phone] | | | +--------+ + + + [...] | | | | | [place] | | | | | | [address] | | | | | | | | +--------+---------+ + + + documented as of this encounter Visit Diagnoses Not on filedocumented in this encounter"
--- OUTSIDE RECORDS SUMMARY | ~2019-10-22 | XMS | Encounter Summary ---
Demographics + + + | Address | [address] [facility] | | | [place] [address] | + + + | Home Phone [...] [place] | | | | | [address] | | + + + + + Care Team Providers + +------+ + | Care Garbage Worker Name | Role | Phone | [...] + + | 08/13/ | Documentati | [facility] | Katharine Moncada, | Other (urgent | | 2019 | on | CARDIOLOGY [place] | Technologist | report) | | | | [address] | | | | | | [place] | | | | | | [address] | | | | | | [phone] | | | +--------+ + + + [...] [place] | | | | | | [address] | | | | | | | | +--------+---------+ + + + documented as of this encounter Visit Diagnoses Not on filedocumented in this encounter"
--- OUTSIDE RECORDS SUMMARY | ~2019-10-22 | XMS | Encounter Summary ---
Demographics + + + | Address | [address] [facility] | | | [place] [address] | + + + | Home Phone [...] [place] | | | | | [address] | | + + + + + Care Team Providers + +------+ + | Care Campaign Analyst Name | Role | Phone | [...] + + | 08/15/ | Documentati | [facility] | Katharine Moncada, | Other (urgent | | 2019 | on | CARDIOLOGY [place]IS | Technologist | report) | | | | [address] | | | | | | [place] | | | | | | [address] | | | | | | [phone] | | | +--------+ + + + [...] [place] | | | | | | [address] | | | | | | | | +--------+---------+ + + + documented as of this encounter Visit Diagnoses Not on filedocumented in this encounter"
--- OUTSIDE RECORDS SUMMARY | ~2019-10-22 | XMS | Encounter Summary ---
Demographics + + + | Address | [address] [facility] | | | [place] [address] | + + + | Home Phone [...] [place] | | | | | [address] | | + + + + + Care Team Providers + +------+ + | Care Linter Tender Name | Role | Phone | [...] + + | 02/26/ | Emergency | [facility] | [place], | CVA (cerebral | | 2015 | | MED CTR EMERGENCY | Davey Simons MD [address] | vascular accident) | | | | CENTER [address] | [address] [facility] | ([facility]) (Primary Dx) | | | | [place], [place] | [place] [address] | | | | | [address] | [phone] | | | | | [phone] | | | +--------+ + + + [...] + + + +---------+ + + | Taswell-3 Fatty | Take 1,000 mg by | [...] | | | | [place] | | | | | | [address] | | | | | | | [...] mL/min/1.73m2 | [facility] | | | [facility] | RATE,ESTIMATED | | MEDICAL | | | | mL/min/1.36v8Cbcb than | | CENTER - | | [...] | 9.1 | 8.3 - 10.5 | [facility] | | | | | mg/dL [...] [address] | [place] | [phone] | | [facility] | | [address] | | | - LABORATORY | | [...] [address] | [place] | [phone] | | [facility] | | [address] | | | - LABORATORY | | [...] | ---- | | | 02/26/2015 13:10 [facility] | | | Emergency -numbness/facial droop 02/26/2015 08:15 [facility] | | [facility] 02/19/2015 | | | 10:15 [facility] | | | -Diabetes [...] as uncontrolled 02/17/2015 | | | 08:22 [facility] | | | -Long-term (current) [...] and uterus 02/14/2015 | | | 09:56 [facility] | | | -Disturbance of [...] status 02/06/2015 10:46 | | | [facility] | | | -Generalized pain [...] residual deficits | | | 02/01/2015 21:38 [facility] | | | Emergency 01/22/2015 14:00 [facility] | | | Urgent Care -Myalgia [...] intervertebral disc | | | 01/16/2015 12:15 [facility] | | | Urgent Care -Unspecified [...] other | | | medications 01/07/2015 11:45 [facility] | | | Urgent Care -Unspecified [...] acquired hypothyroidism 12/30/2014 | | | 17:54 [facility] | | | -Obstructive sleep [...] essential hypertension | | | 12/30/2014 14:30 [facility] | | | Urgent Care -Cramp [...] | | -Cramp of limb 11/29/2014 16:15 [facility] | | | Urgent Care -Esophageal [...] ------ | | | --------- [address] | | | [facility] 6 [address] [facility] [address] | | | [facility] 7 0 Total | | | Note: Visits indicate total known visits. Medicaid [place] Dx are the | | | number of primary diagnoses on the [facility]'s non-emergent dx list. | | [...]
--- OUTSIDE RECORDS SUMMARY | ~2019-10-22 | XMS | Encounter Summary ---
Demographics + + + | Address | [address] [facility] | | | [place] [address] | + + + | Home Phone [...] [place] | | | | | [address] | | + + + + + Care Team Providers + +------+ + | Care Box Hinge And Lock Attacher Name | Role | Phone | + [...] [address] | [address] [place], [place] | Anxiety; Anemia; | | | | [place] | [address] | Irregular heartbeat; | | | | [address] | | Depression; | | | | [phone] | | Migraine; | | | | [...] [place] | | | | | | [address] | | | | | | | [...]
--- OUTSIDE RECORDS SUMMARY | ~2019-10-22 | XMS | Encounter Summary ---
Demographics + + + | Address | [address] [facility] | | | [place] [address] | + + + | Home Phone [...] [place] | | | | | [address] | | + + + + + Care Team Providers + +------+ + | Care Production Counter Name | Role | Phone | [...] | | | | | | [place], | | | | | | [place] [address] | | | | | | [phone] | | | +--------+ + + + [...] | | + +---------+ + + | [facility] | | | | | RADIOLOGY | | | | + +---------+ + + documented in this encounter Visit Diagnoses Not on filedocumented in this encounter"
--- OUTSIDE RECORDS SUMMARY | ~2019-10-22 | XMS | Encounter Summary ---
Demographics + + + | Address | [address] [facility] | | | [place] [address] | + + + | Home Phone [...] [place], [place] | | | | | [address] | | + + + + + Care Team Providers + +------+ + | Care Paper Sheeter Name | Role | Phone | + +------+ + PCP | Unavailable | + +------+ + Encounter Details +--------+ + + + + | Date | Type | Department | Care Team | Description | +--------+ + + + + | 12/06/ | Hospital | [facility] | | | | 1994 | Encounter | MED CTR LABORATORY | | | | | | [address] | | | | | | [place] | | | | | | [address] | | | | | | [phone] | | | +--------+ + + + [...] | | | | | [place] | | | | | | [address] | | | | | | | | +--------+---------+ + + + documented as of this encounter Visit Diagnoses Not on filedocumented in this encounter"
--- OUTSIDE RECORDS SUMMARY | ~2019-10-22 | XMS | Encounter Summary ---
Demographics + + + | Address | [address] [facility] | | | [place] [address] | + + + | Home Phone [...] [place] | | | | | [address] | | + + + + + Care Team Providers + +------+ + | Care Cloth Printing Utility Worker Name | Role | Phone | [...] | | | | | mellitus, | [address] | [place] | | | | | controlled | Phone: | [address] | | | | | (HCC) | [phone] | Phone: | | | | | History of | Fax: | [phone] | | | | | gastric | [phone] | Fax: | | | | | restrictive | | [phone] | | | | | surgery | [...] | Required | | hypertension | [address] [facility] | | | | | Lumbar | AVE [place] | [address] | | | | | radiculopath | [place], [place] | AVE | | | | | y Type 2 | [address] | [place] | | | | | diabetes | Phone: | [address] | | | | | mellitus, | [phone] | Phone: | | | | | controlled | Fax: | [phone] | | | | | (HCC) | [phone] | Fax: | | | | | Obesity, | | [phone] | | | | | Class III, [...] | | [facility] & Katharine BUCIO in [place]. | + + + | Other | [...] | Office | [facility] | Katharine Cardona PA-C | Hypothyroidism due | | 2014 | Visit | MEDICINE [address] | [address] [facility] | to acquired atrophy | | | | Street [place] | [place] [address] | of thyroid (Primary | | | | [place] [address] | [phone] | Dx); Essential | | | | [phone] | | hypertension; Iron | | | [...] Stroke | | | | | | ([facility]); Environmental | | | | | [...] | | | | | | obesity) ([facility]); | | | | | | Type 2 diabetes | | | | | | mellitus, controlled | | | | | | ([facility]); Preventative | | | | | [...] t be different from the original. Ask [facility] if they think it might be helpful [...] Cont your meds as prescribed. F/U with [facility] as scheduled Neuropathy Continue gabapentin. May consider increase if pain is not controlled. May benefit from switching from Paxil to one of the SNRIs or TCAs for analgesic effects, holly manju, she is doing so well on her current regimen it may not be worth making any changes an d find alternate ways to deal with the pain. Would be worth discussing with [facility] Psych Back Pain Will refer to water therapy (aqua fitness) at [facility] as request ed. ROGERS on [...] Colonoscopy procedures 4. Schizoaffective disorder, bipolar type ([facility]) 5. Neuropathy Vitamin B-12 6. BACK PAIN, LUMBAR, WITH RADICULOPATHY Ambulatory referral to Physical Therapy 7. ROGERS on CPAP 8. Stroke ([facility]) 9. Environmental and seasonal allergies fluticasone (FLONASE) 50 mcg/nasal spray 10. Gastroesophageal reflux disease without esophagitis dexlansoprazole (DEXILANT) 60 mg D R capsule 11. History of gastric restrictive surgery Vitamin D, 25-Hydroxy Nutrition Services - External - AMB Referral 12. Obesity, Class III, BMI 40-49.9 (morbid obesity) ([facility]) Ambulatory referral to Physical Therapy Nutrition Services - External - AMB Referral 13. Type 2 diabetes mellitus, controlled ([facility]) Ambulatory referral to Physical Therapy Nutrition [...] Cont your meds as prescribed. F/U with [facility] as scheduled Neuropathy Continue gabapentin. May consider [...] the pain. Would be worth discussing with [facility] professional. Back Pain Will refer to water therapy (aqua fitness) at [facility] as request ed. Cont home exercise, stretching, [...] plan. The above note was dictated using Vipshop voice recognition software. It may have not been proofread in entirety. Minor errors in grammar may occur. CHIEF COMPLAINT Chief Complaint Patient presents with [facility] to establish care. Former patient of [facility] in [place]. Other Possible stroke January 2015. Is now [...] auditory, at 36. 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 She is now very well controlled on Saphris, Depakote, and Paxi l. She is followed by [facility] in [place]. She has DM2 that is well controlled [...] worked up by steve rowe, Dr [place], [place]. More recently, she presented to ED with [...] Laterality: N/A; Surgeon: Frandy castellanos DO; Location: [facility] MAIN OR SOCIAL HISTORY History Social [...] mg by mouth Daily. Cholecalciferol (VITAMIN D-3) 68474 units CAPS Oral Take 50,000 Units by [...] Oral Take 10 mg by mouth nightly. [place]-3 Fatty Acids (FISH OIL CONCENTRATE) 1000 MG [...] [place] | | | | | | [address] | | | | | | | [...] | | | | | | controlled ([facility]) | | | | | | Obesity, Class III, | | | | | | BMI 40-49.9 (morbid | | | | | | obesity) ([facility]) | | + + +--------+ + + | Nutrition Services - | Outpatient | Routin | Iron deficiency | Ordered: 03/06/2015 | | External - AMB | Referral | e | anemia Type 2 | | | Referral | | | diabetes mellitus, | | | | | | controlled ([facility]) | | | | | | History of gastric | | | | | | restrictive surgery | | | | | | Obesity, Class III, | | | | | | BMI 40-49.9 (morbid | | | | | | obesity) ([facility]) | | + + +--------+ + [...] 12 | 7 - 18 mg/dL | [facility] | | | | | | [facility] | | | | | [facility] | | | | | | [facility] - | | | | | | LABORATORY | | + + + + + + | Creatinine | 0.66 | 0.60 - 1.30 | [facility] | | | | | mg/dL | [facility] | | | | | | [facility] | | | | | | [facility] - | | | | | | LABORATORY | | + + + + + + | eGFR if not | >60Comment: GLOMERULAR | >=60 | [facility] | | | | FILTRATION | mL/min/1.73m2 | [facility] | | | CYMRAES | RATE,ESTIMATED | | MEDICAL | | | | mL/min/1.58n0Dqqk than | | CENTER - | | [...] [address] | [place] | [phone] | | [facility] | | [address] | | | - LABORATORY | | [...] + | Type 2 diabetes mellitus, controlled ([facility]) Type II or unspecified type diabetes | | mellitus without mention of complication, not stated as uncontrolled | + + | Preventative health care Routine general medical examination at a health care | | facility | + + documented in this encounter
--- OUTSIDE RECORDS SUMMARY | ~2019-10-22 | XMS | Encounter Summary ---
Demographics + + + | Address | [address] [facility] [address] | | | [place] [address] | + + + | Home Phone [...] [place] | | | | | [address] | | + + + + + Care Team Providers + +------+ + | Care Social Sciences Chair Name | Role | Phone | + [...] + | 03/07/ | Telephone | [facility] | Katharine Cardona PA-C | Results | | 2014 | | [facility] | [address] [place] | | | | | [address] | [place] [address] | | | | | [place], [place] | [phone] | | | | | [address] | | | | | | [phone] | | | +--------+ + + + [...] [place] | | | | | | [address] | | | | | | | | +--------+---------+ + + + documented as of this encounter Visit Diagnoses Not on filedocumented in this encounter"
--- OUTSIDE RECORDS SUMMARY | ~2019-10-22 | XMS | Encounter Summary ---
Demographics + + + | Address | [address] [facility] | | | [place] [address] | + + + | Home Phone [...] [place], [place] | | | | | [address] | | + + + + + Care Team Providers + +------+ + | Care Investigation Division Captain Name | Role | Phone | + +------+ + PCP | Unavailable | + +------+ + Encounter Details +--------+ + + + + | Date | Type | Department | Care Team | Description | +--------+ + + + + | 06/23/ | Hospital | [facility] | | | | 2000 | Encounter | MED CTR GENERIC OP | | | | | | CONV DEPT [address] | | | | | | [place], | | | | | | [place] [address] | | | | | | [phone] | | | +--------+ + + + [...] | | | | | [place] | | | | | | [address] | | | | | | | | +--------+---------+ + + + documented as of this encounter Visit Diagnoses Not on filedocumented in this encounter"
--- OUTSIDE RECORDS SUMMARY | ~2019-10-22 | XMS | Encounter Summary ---
Demographics + + + | Address | [address] [facility] [address] [facility] | | | [place] [address] | + + + | Home Phone [...] [place] | | | | | [address] | | + + + + + Care Team Providers + +------+ + | Care Marine Engine Driver Name | Role | Phone | [...] | | | | | | [place] [address] | | | | | | [phone] | | | | | | | [...] in | | | | | | [place] with a | | | | | [...] [facility] | | | | | | [facility] | | | | | | Laboratory, [place], | | | | | | [place], delivered | | | | | | [...] by | | | | | | fcktckpjLop-Obv-S: | | | | | | Increased [...] istryMHC-1: | | | | | | KytnxblwUB19 stain | | | | | | [...] | + + + + + | [facility] | [address] | [place] [address] | | | PATHOLOGY | [place] | | | + + + + + documented in this encounter Visit Diagnoses Not on filedocumented in this encounter
--- OUTSIDE RECORDS SUMMARY | ~2019-10-22 | XMS | Encounter Summary ---
Demographics + + + | Address | [address] [facility] | | | [place] [address] | + + + | Home Phone [...] [place] | | | | | [address] | | + + + + + [...] [address] [address] | [place] [address] [place], [place] | | | | | [place], [place] | [id number] | | | | | [address] | | | | | | [phone] | | | +--------+ + + + [...] | | | | | [place] | | | | | | [address] | | | | | | | | +--------+---------+ + + + documented as of this encounter Visit Diagnoses Not on filedocumented in this encounter"
--- OUTSIDE RECORDS SUMMARY | ~2019-10-22 | XMS | Encounter Summary ---
Demographics + + + | Address | [address] [facility] | | | [place] [address] | + + + | Home Phone [...] [place] | | | | | [address] | | + + + + + Care Team Providers + +------+ + | Care Photo Graphics Librarian Name | Role | Phone | + [...] + + | 06/27/ | Office | [facility] | Yecenia Richardson, | Hypertension, | | 2019 | Visit | CARDIOLOGY [place] | MD Nitin RODRIGUES | unspecified type | | | | [address] | [place], [place] | (Primary Dx); | | | | KEV SCHAFER [facility] | [address] | Bradycardia | | | | [place] | | | | | | [address] | | | | | | [phone] | | | +--------+---------+ + + + [...] urgent basis. Had an appointment today in [facility]. She has been feeling dizzy as [...] Take by mouth. Blood Glucose Monitoring Suppl (Yummly VERIO FLEX SYSTEM) w/Device KIT by Does [...] mg by mouth Daily. Cholecalciferol (VITAMIN D-3) 63142 units CAPS Take 50,000 Units by mouth [...] tablet Take 10 mg by mouth nightly. [place]-3 Fatty Acids (FISH OIL CONCENTRATE) 1000 MG [...] | | | | | [place], [place] | | | | | | [address] | | | | | | | [...]
--- OUTSIDE RECORDS SUMMARY | ~2019-10-22 | XMS | Encounter Summary ---
Demographics + + + | Address | [address] [facility] | | | [place] [address] | + + + | Home Phone [...] [place], [place] | | | | | [address] | | + + + + + Care Team Providers + +------+ + | Care Mastic Worker Name | Role | Phone | + +------+ + PCP | Unavailable | + +------+ + Encounter Details +--------+ + + + + | Date | Type | Department | Care Team | Description | +--------+ + + + + | 07/23/ | Hospital | [facility] | | | | 1992 - | Encounter | MED CTR GENERIC PSY | | | | | | CONV DEPT [address] | | | | 07/28/ | | [place], | | | | 1992 | | [place] [address] | | | | | | [phone] | | | +--------+ + + + [...] [place] | | | | | | [address] | | | | | | | | +--------+---------+ + + + documented as of this encounter Visit Diagnoses Not on filedocumented in this encounter"
--- OUTSIDE RECORDS SUMMARY | ~2019-10-22 | XMS | Encounter Summary ---
Demographics + + + | Address | [address] [facility] | | | [place] [address] | + + + | Home Phone [...] + | Araceli iSbley | ECON | [place] | | | | | [address] | | + + + + + Care Team Providers + +------+ + | Care Supervisor Decorating Name | Role | Phone | + [...] [address] | [address] [place], [place] | | | | | [place], [place] | [id number] | | | | | [address] | | | | | | [phone] | | | +--------+ + + + [...] | | | | | [place] | | | | | | [address] | | | | | | | | +--------+---------+ + + + documented as of this encounter Visit Diagnoses Not on filedocumented in this encounter"
--- OUTSIDE RECORDS SUMMARY | ~2019-10-22 | XMS | Encounter Summary ---
Demographics + + + | Address | [address] [facility] | | | [place] [address] | + + + | Home Phone [...] [place], [place] | | | | | [address] | | + + + + + Care Team Providers + +------+ + | Care Stroke Belt Sander Operator Name | Role | Phone | + +------+ + PCP | Unavailable | + +------+ + Encounter Details +--------+ + + + + | Date | Type | Department | Care Team | Description | +--------+ + + + + | 01/25/ | Hospital | [facility] | | | | 2002 | Encounter | MED CTR XRAY [address] | | | | | | [place] | | | | | | [place] [address] | | | | | | [phone] | | | +--------+ + + + [...] | | | | | [place] | | | | | | [address] | | | | | | | | +--------+---------+ + + + documented as of this encounter Visit Diagnoses Not on filedocumented in this encounter"
--- OUTSIDE RECORDS SUMMARY | ~2019-10-22 | XMS | Encounter Summary ---
Demographics + + + | Address | [address] [facility] | | | [place] [address] | + + + | Home Phone [...] [place] | | | | | [address] | | + + + + + Care Team Providers + +------+ + | Care Olive Picker Name | Role | Phone | [...] + + | 08/15/ | Documentati | [facility] | Katharine Moncada, | Other (urgent | | 2019 | on | CARDIOLOGY [place] | Technologist | report) | | | | [address] | | | | | | [place] | | | | | | [address] | | | | | | [phone] | | | +--------+ + + + [...] [place] | | | | | | [address] | | | | | | | | +--------+---------+ + + + documented as of this encounter Visit Diagnoses Not on filedocumented in this encounter"
--- OUTSIDE RECORDS SUMMARY | ~2019-10-22 | XMS | Encounter Summary ---
Demographics + + + | Address | [address] [facility] | | | [place] [address] | + + + | Home Phone [...] [place] | | | | | [address] | | + + + + + Care Team Providers + +------+ + | Care Casing Tier Name | Role | Phone | + [...] | | | | | | | [address] | | | | | | | Phone: | | | | | | | [phone] | | | | | | | Fax: | | | | | | | [phone] | | +--------+ + + + + + Reason for Visit + + + | Reason | Comments | + + + | Follow-up | 4 Week PO | + + + Encounter Details +--------+---------+ + + + | Date | Type | Department | Care Team | Description | +--------+---------+ + + + | 07/25/ | Office | [facility] | Frandy Teresa, | Lumbar spondylosis | | 2013 | Visit | NEUROSURGERY [address] | DO [address] | (Primary Dx); S/P | | | | [address] | [address] [address] [place], [place] | lumbar fusion | | | | [place] | [address] | | | | | [address] | | | | | | [phone] | | | +--------+---------+ + + + [...] m the original. Frandy Teresa DO [address] [facility] [address] [place], [place] [address] FAX: NEUROSURGERY SURGICAL FOLLOW-UP CHIEF COMPLAINT: Chief [...] Take 15 mg by mouth nightl y. [place]-3 Fatty Acids (FISH OIL CONCENTRATE) 1000 MG [...] + | MISCELLANEOUS LAB | | | [phone] | + +---------+ + + | MISCELANIOUS LAB | | | [phone] | + +---------+ + + documented in this encounter Visit Diagnoses + + | Diagnosis | + + | Lumbar spondylosis - Primary Lumbosacral spondylosis without myelopathy | + + | S/P lumbar fusion Arthrodesis status | + + documented in this encounter
--- OUTSIDE RECORDS SUMMARY | ~2019-10-22 | XMS | Encounter Summary ---
Demographics + + + | Address | [address] [facility] | | | [place] [address] | + + + | Home Phone [...] [place] | | | | | [address] | | + + + + + Care Team Providers + +------+ + | Care Suction Plate Roller Hand Name | Role | Phone | [...] Closed | | Radiology | Diagnoses | [place], | | | | | | Thoracic or | Natalee L, | | | | | | lumbosacral | LEAD DATABASE DEVELOPER [address] | | | | | | neuritis or | [address] [place] | | | | | | | [address] | | | | | | radiculitis, | [place], | | | | | | unspecified | [place] [address] | | | | | | | Phone: | | | | | | Degeneration | [phone] | | | | | | of lumbar | Fax: | | | | | | or | [phone] | | | | | | lumbosacral [...] + + | 03/11/ | Hospital | [facility] | Natalee Andersen | Thoracic or | | 2013 | Encounter | MED CTR MRI [address] | L, LEAD DATABASE DEVELOPER [address] | lumbosacral neuritis | | | | [place], | [address] [place] [address] | or radiculitis, | | | | [place] [address] | [place] [address] | unspecified; | | | | [phone] | [phone] | Degeneration of | | | | [...] + + +---------+ + + | [place]-3 Fatty | Take 1,000 mg by | [...] | | | | | | [facility] [facility] | | | | | | [address] | | | | | | | [...] + | MISCELLANEOUS LAB | | | [phone] | + +---------+ + + | MISCELANIOUS LAB | | | [phone] | + +---------+ + + documented in this encounter Visit Diagnoses + + | Diagnosis | + + | Thoracic or lumbosacral neuritis or radiculitis, unspecified | + + | Degeneration of lumbar or lumbosacral intervertebral disc | + + documented in this encounter"
--- OUTSIDE RECORDS SUMMARY | ~2019-10-22 | XMS | Encounter Summary ---
Demographics + + + | Address | [address] [facility] | | | [place] [address] | + + + | Home Phone [...] [place] | | | | | [address] | | + + + + + Care Team Providers + +------+ + | Care Director Of Quality Control Name | Role | Phone | [...] | | | | | [address] | [place], [place] | | | | | [place], [place] | [address] | | | | | [address] | | | | | | [phone] | | | +--------+ + + + [...] [place] | | | | | | [address] | | | | | | | | +--------+---------+ + + + documented as of this encounter Visit Diagnoses Not on filedocumented in this encounter"
--- OUTSIDE RECORDS SUMMARY | ~2019-10-22 | XMS | Encounter Summary ---
Demographics + + + | Address | [address] [facility] | | | [place] [address] | + + + | Home Phone [...] [place] | | | | | [address] | | + + + + + Care Team Providers + +------+ + | Care Servomechanism Assembler Name | Role | Phone | [...] + | 06/20/ | Telephone | [facility] | Frandy Teresa, | Other (surgery | | 2013 | | NEUROSURGERY [address] | DO [address] | reminder ) | | | | [address] | [place] [address] [place], [place] | | | | | [place], [place] | [address] | | | | | [address] | | | | | | [phone] | | | +--------+ + + + [...] | | | | | [place] | | | | | | [address] | | | | | | | | +--------+---------+ + + + documented as of this encounter Visit Diagnoses Not on filedocumented in this encounter"
--- OUTSIDE RECORDS SUMMARY | ~2019-10-22 | XMS | Encounter Summary ---
Demographics + + + | Address | [address] [facility] | | | [place] [address] | + + + | Home Phone [...] [place] | | | | | [address] | | + + + + + Care Team Providers + +------+ + | Care Table Attendant Name | Role | Phone | [...] | | | spondylolist | | [address] [place] | | | | | hesis | | [place], | | | | | Spinal | | [place] [address] | | | | | stenosis, | | Phone: | | | | | lumbar | | [phone] | | | | | region, | | Fax: | | | | | without | | [phone] | | | | | neurogenic | [...] | | | | | | | [place] | | | | | | [...] | | | | | | [place] | | | | | | | [...] | | | | | | [place] | | | | | | | [...] + + | 07/02/ | Hospital | [facility] | Frandy Teresa, | Spinal stenosis, | | 2013 | Encounter | MED CTR XRAY [address] | DO [address] | lumbar region, | | | | [place] | [address] [place], [place] | without neurogenic | | | | [place] [address] | [address] | claudication | | | | [phone] | | (Primary Dx) | +--------+ + [...] [place] | | | | | | [address] | | | | | | | [...]
--- OUTSIDE RECORDS SUMMARY | ~2019-10-22 | XMS | Encounter Summary ---
Demographics + + + | Address | [address] [facility] | | | [place] [address] | + + + | Home Phone [...] [place] | | | | | [address] | | + + + + + Care Team Providers + +------+ + | Care Circuit Breaker Assembler Name | Role | Phone | [...] [address] | | | | | [place], [place] | Shaheen Simons | | | | | [address] | [place] [address] | | | | | [phone] | [phone] | | | | | | | [...] [place] | | | | | | [address] | | | | | | | [...] GIVEN Testing | | | performed at [facility];[address] [place] [address] CULTURE | | | 50,000 TO 100,000 CFU/ML | | | MIXED GRAM POSITIVE HAIDER NO SUSCEPTIBILITY TO FOLLOW | | | MULTIPLE ORGANISM TYPES PRESENT, | | | SUGGESTIVE OF CONTAMINATION OR COLONIZATION. SUGGEST RECOLLECTION FOR | | | CULTURE. Testing | | | performed at [facility];[address] [place] [address];[place] [address] REPORT | | | STATUS 06/08/2012 FINAL [...]
--- OUTSIDE RECORDS SUMMARY | ~2019-10-22 | XMS | Encounter Summary ---
Demographics + + + | Address | [address] [facility] | | | [place] [address] | + + + | Home Phone [...] [place] | | | | | [address] | | + + + + + Care Team Providers + +------+ + | Care Central Supply Supervisor Name | Role | Phone | [...] [place] | | | | | | [address] | | | | | | [phone] | | | +--------+ + + + [...] [place] | | | | | | [address] | | | | | | | | +--------+---------+ + + + documented as of this encounter Visit Diagnoses Not on filedocumented in this encounter"
--- OUTSIDE RECORDS SUMMARY | ~2019-10-22 | XMS | Encounter Summary ---
Demographics + + + | Address | [address] [facility] | | | [place] [address] | + + + | Home Phone [...] [place] | | | | | [address] | | + + + + + Care Team Providers + +------+ + | Care Granulator Tender Name | Role | Phone | [...] + + | 08/15/ | Documentati | [facility] | Katharine Moncada, | Other (urgent | | 2019 | on | CARDIOLOGY [place] | Technologist | report) | | | | [address] | | | | | | [place] | | | | | | [address] | | | | | | [phone] | | | +--------+ + + + [...] [place] | | | | | | [address] | | | | | | | | +--------+---------+ + + + documented as of this encounter Visit Diagnoses Not on filedocumented in this encounter"
--- OUTSIDE RECORDS SUMMARY | ~2019-10-22 | XMS | Encounter Summary ---
Demographics + + + | Address | [address] [facility] | | | [place] [address] | + + + | Home Phone [...] [place] | | | | | [address] | | + + + + + [...] | 06/25/ | Hospital | [facility] | Latricia Feliciano | | | 2014 | Encounter | MED CTR ACUTE | D, PT [address] | | | | | PHYSICAL THERAPY | NEFTALIE [place] PAIGE | | | | | [address] | [address] | | | | | [place] [address] | | | | | | [phone] | | | +--------+ + + + [...] + + + +---------+ + + | [place]-3 Fatty | Take 1,000 mg by | [...] [place] | | | | | | [address] | | | | | | | | +--------+---------+ + + + documented as of this encounter Visit Diagnoses Not on filedocumented in this encounter"
--- OUTSIDE RECORDS SUMMARY | ~2019-10-22 | XMS | Encounter Summary ---
Demographics + + + | Address | [address] [facility] | | | [place] [address] | + + + | Home Phone [...] [place] | | | | | [address] | | + + + + + Care Team Providers + +------+ + | Care Rand Maker Name | Role | Phone | [...] | Frandy Simons DO | [address] | | | | | of skin | [address] | [place], | | | | | sensation | [address] | [place] | | | | | Arthrodesis | [place], [place] | [address] | | | | | status Left | [address] | Phone: | | | | | leg | Phone: | [phone] | | | | | weakness | [phone] | Fax: | | | | | Procedures | Fax: | [phone] | | | | | MRI Lumbar | [phone] | | | | | | Spine [...] [address] | [address] [place], [place] | | | | | [place], [place] | [address] | | | | | [address] | | | | | | [phone] | | | +--------+ + + + [...] [place] | | | | | | [address] | | | | | | | [...] the round structure with high T1 and Z5lzapov in the right L3 vertebral | | [...] + | MISCELLANEOUS LAB | | | [phone] | + +---------+ + + | MISCELANIOUS LAB | | | [phone] | + +---------+ + + documented in [...]
--- OUTSIDE RECORDS SUMMARY | ~2019-10-22 | XMS | Encounter Summary ---
Demographics + + + | Address | [address] [facility] | | | [place] [address] | + + + | Home Phone [...] [place] | | | | | [address] | | + + + + + Care Team Providers + +------+ + | Care Anesthesiology Technologist Name | Role | Phone | + +------+ + | Natalee Andersen NP | PCP | | + +------+ + Encounter Details +--------+ + + + + | Date | Type | Department | Care Team | Description | +--------+ + + + + | 07/06/ | Hospital | [facility] | Latricia Feliciano | | | 2014 | Encounter | MED CTR ACUTE | D, PT [address] | | | | | PHYSICAL THERAPY | NEFTALIE MARAH PAIGE | | | | | [address] | [address] | | | | | [place] [address] | | | | | | [phone] | | | +--------+ + + + [...] + + + +---------+ + + | [place]-3 Fatty | Take 1,000 mg by | [...] | | | | | [place] | | | | | | [address] | | | | | | | | +--------+---------+ + + + documented as of this encounter Visit Diagnoses Not on filedocumented in this encounter"
--- OUTSIDE RECORDS SUMMARY | ~2019-10-22 | XMS | Encounter Summary ---
Demographics + + + | Address | [address] [facility] | | | [place] [address] | + + + | Home Phone [...] [place] | | | | | [address] | | + + + + + Care Team Providers + +------+ + | Care Camp Housekeeper Name | Role | Phone | [...] + + | 03/26/ | Telephone | [facility] | Thierry Fry | Medication Prior | | 2015 | | MEDICINE [facility] | MD Lisa [address] | Authorization | | | | [facility] | [address] [place] | (Dexilant 60Mg) | | | | [place] [address] | [address] | | | | | [phone] | | | +--------+ + + + [...] [place] | | | | | | [address] | | | | | | | | +--------+---------+ + + + documented as of this encounter Visit Diagnoses Not on filedocumented in this encounter"
--- OUTSIDE RECORDS SUMMARY | ~2019-10-22 | XMS | Encounter Summary ---
Demographics + + + | Address | [address] [facility] [address] [facility] [address] | | | [place] [address] | + + + | Home Phone [...] [place] | | | | | [address] | | + + + + + Care Team Providers + +------+ + | Care Sand Plant Attendant Name | Role | Phone | [...] | | | | | | | [address] | | | | | | | Phone: | | | | | | | [phone] | | | | | | | Fax: | | | | | | | [phone] | | +--------+--------+ + + + + Encounter Details +--------+---------+ + + + | Date | Type | Department | Care Team | Description | +--------+---------+ + + + | 02/27/ | Office | [facility] | Baudilio Newman | Neuropathy (Primary | | 2015 | Visit | NEUROLOGY LAURIE | MD Pollo Need updated | Dx); Sleep apnea; | | | | [address] [facility], | address | Stroke (HCC); | | | | [address] [place] | | Thyroid disease | | | | [place] [address] | | | | | | [phone] | | | +--------+---------+ + + + [...] supply of blood, brain tissue quickly dies. 8321-1158 [employer]. [address] [place] [address], [place] [address]. All righ ts reserved. This information is not intended as a substitute for professional medical care. Always follow your healthcare professional's instructions. documented in this encounter Progress Notes Baudilio Newman MD - 02/27/2015 10:31 AM PDTFormatting of this note might be differen t from the original. Baudilio Newman MD [address] [facility], [address] [place] [address] Neurology Outpatient New Patient Note Referring Provider: [...] history. Notes from her recent hospitalization at [facility] were reviewed in detail. Ms. Arndt started feeling off in the evening of 02/01. She felt dizzy and laid down to slee p. Upon waking, she felt her right side was numb. She tried to get up to go to the bathroom and realized she was weak as well on the right. She was taken to [facility] where she was diagnosed with a TIA/stroke [...] ically. She was reevaluated in the [facility] ED for one such event and her [...] hospitalization . This specimen was characterized at [facility], but the report [facility]. Unfortunately, Ms. Arndt notes that her [...] Laterality: N/A; Surgeon: Frandy castellanos DO; Location: [facility] MAIN OR Current Medications: Outpatient Medications [...] tablet Take 15 mg by mouth nightly. [place]-3 Fatty Acids (FISH OIL CONCENTRATE) 1000 MG [...] BMI 46.04 kg /m2 Neck Circumference: 14" G[place]wood Sleepiness Scale: 2 General: well developed and [...] Romberg test negative Radiographic Review: CTA from [facility] reviewed on iSITE. No significant stenoses seen [...] No results found for this basename: hba1c, rcr7mvz, ldl, ldldirect, ldlext, dldlex Lab Results Component [...] | | | | | [place], [place] | | | | | | [id number] | | | | | | | [...]
--- OUTSIDE RECORDS SUMMARY | ~2019-10-22 | XMS | Encounter Summary ---
Demographics + + + | Address | [address] [facility] [address] | | | [place] [address] | + + + | Home Phone [...] + | Araceli Sibley | ECON | [place] | | | | | [address] | | + + + + + Care Team Providers + +------+ + | Care Local Driver Name | Role | Phone | [...] | 03/07/ | Telephone | [facility] | Katharine Cardona PA-C | Results | | 2014 | | [facility] | [address] [place] | | | | | [address] | [place] [address] | | | | | [place], [place] | [phone] | | | | | [address] | | | | | | [phone] | | | +--------+ + + + [...] [place] | | | | | | [address] | | | | | | | | +--------+---------+ + + + documented as of this encounter Visit Diagnoses Not on filedocumented in this encounter"
--- OUTSIDE RECORDS SUMMARY | ~2019-10-22 | XMS | Encounter Summary ---
Demographics + + + | Address | [address] [facility] | | | [place] [address] | + + + | Home Phone [...] [place] | | | | | [address] | | + + + + + Care Team Providers + +------+ + | Care Critical Care Unit Nurse Name | Role | Phone | + +------+ + | Adriano Patrick MD | PCP | | + +------+ + Encounter Details +--------+ + + + + | Date | Type | Department | Care Team | Description | +--------+ + + + + | 05/16/ | Orders Only | [facility] | Provider, | | | 2018 | | SYSTEM GENERIC OP | MD [address] | | | | | CONVERSION [address] | [address] | | | | | [address] [place], [place] | [place] [address] | | | | | [address] | | | | | | [phone] | | | +--------+ + + + [...] | | | | [address] [place], [place] | | | | | | [address] | | | | | | | | +--------+---------+ + + + documented as of this encounter Visit Diagnoses Not on filedocumented in this encounter"
--- OUTSIDE RECORDS SUMMARY | ~2019-10-22 | XMS | Encounter Summary ---
Demographics + + + | Address | [address] [facility] [address] | | | [place] [address] | + + + | Home Phone [...] [place] | | | | | [address] | | + + + + + Care Team Providers + +------+ + | Care Director Of Sales And Marketing Name | Role | Phone | + +------+ + | Natalee Andersen NP | PCP | | + +------+ + Encounter Details +--------+ + + + + | Date | Type | Department | Care Team | Description | +--------+ + + + + | 05/02/ | Hospital | [facility] | Frandy Teresa, | Back pain | | 2014 | Encounter | MED CTR XRAY [address] | DO [address] | | | | | [place] | [address] [place] | | | | | [place] [address] | [address] | | | | | [phone] | | | +--------+ + + + [...] + + + +---------+ + + | [place]-3 Fatty | Take 1,000 mg by | [...] | | | | | [place] | | | | | | [address] | | | | | | | [...] + | MISCELLANEOUS LAB | | | [phone] | + +---------+ + + | MISCELANIOUS LAB | | | [phone] | + +---------+ + + documented in this encounter Visit Diagnoses + + | Diagnosis | + + | Back pain Backache, unspecified | + + documented in this encounter"
--- OUTSIDE RECORDS SUMMARY | ~2019-10-22 | XMS | Encounter Summary ---
Demographics + + + | Address | [address] [facility] [address] [facility] | | | [place] [address] | + + + | Home Phone [...] [place] | | | | | [address] | | + + + + + Care Team Providers + +------+ + | Care Crab Catcher Name | Role | Phone | + [...] + + | 08/30/ | Telephone | [facility] | Ashley Chávez | Other (Patient wants | | 2019 | | CARDIOLOGY [place] | Pollo, Electronics Assembler | to take monitor | | | | [address] | | off. ) | | | | [address] | | | | | | [place] | | | | | | [address] | | | | | | [phone] | | | +--------+ + + + [...] [place] | | | | | | [address] | | | | | | | | +--------+---------+ + + + documented as of this encounter Visit Diagnoses Not on filedocumented in this encounter"
--- OUTSIDE RECORDS SUMMARY | ~2019-10-22 | XMS | Encounter Summary ---
Demographics + + + | Address | [address] [address] [facility] | | | [place] [address] | + + + | Home Phone [...] [place] | | | | | [address] | | + + + + + Care Team Providers + +------+ + | Care Third Officer Name | Role | Phone | [...] + | 02/21/ | Refill | [facility] | Deon Gonzales | Medication Refill | | 2012 | | SLEEP DISORDER [address] | MD Laure[address] | | | | | [address] [place] | [address] [place] | | | | | [place] [address] | [place] [address] | | | | | [phone] | [phone] | | | | | | | [...] [place] | | | | | | [address] | | | | | | | | +--------+---------+ + + + documented as of this encounter Visit Diagnoses + + | Diagnosis | + + | Obstructive sleep apnea (adult) (pediatric) - Primary | + + documented in this encounter"
--- OUTSIDE RECORDS SUMMARY | ~2019-10-22 | XMS | Encounter Summary ---
Demographics + + + | Address | [address] [facility] | | | [place] [address] | + + + | Home Phone [...] [place] | | | | | [address] | | + + + + + Care Team Providers + +------+ + | Care Embedded Nurse Name | Role | Phone | [...] + | 09/26/ | Refill | [facility] | Frandy Teresa, | Medication Refill | | 2013 | | NEUROSURGERY [address] | DO [address] | | | | | [address] | [address] [place], [place] | | | | | [place], [place] | [id number] | | | | | [address] | | | | | | [phone] | | | +--------+--------+ + + + [...] | | | | | [place] | | | | | | [address] | | | | | | | | +--------+---------+ + + + documented as of this encounter Visit Diagnoses Not on filedocumented in this encounter"
--- OUTSIDE RECORDS SUMMARY | ~2019-10-22 | XMS | Encounter Summary ---
Demographics + + + | Address | [address] [facility] [address] [facility] | | | [place] [address] | + + + | Home Phone [...] [place], [place] | | | | | [address] | | + + + + + Care Team Providers + +------+ + | Care Door Person Name | Role | Phone | + +------+ + PCP | Unavailable | + +------+ + Encounter Details +--------+ + + + + | Date | Type | Department | Care Team | Description | +--------+ + + + + | 09/24/ | Hospital | [facility] | | | | 1993 | Encounter | MED CTR LABORATORY | | | | | | [address] | | | | | | [place] | | | | | | [address] | | | | | | [phone] | | | +--------+ + + + [...] | | | | | [place] | | | | | | [address] | | | | | | | | +--------+---------+ + + + documented as of this encounter Visit Diagnoses Not on filedocumented in this encounter"
--- OUTSIDE RECORDS SUMMARY | ~2019-10-22 | XMS | Encounter Summary ---
Demographics + + + | Address | [address] [facility] | | | [place] [address] | + + + | Home Phone [...] [place] | | | | | [address] | | + + + + + Care Team Providers + +------+ + | Care Computer Technology Teacher Name | Role | Phone [...] | | | | | | | [address] | | | | | | | Phone: | | | | | | | [phone] | | | | | | | Fax: | | | | | | | [phone] | | +--------+--------+ + + + + Encounter Details +--------+---------+ + + + | Date | Type | Department | Care Team | Description | +--------+---------+ + + + | 02/27/ | Office | [facility] | Baudilio Newman | Neuropathy (Primary | | 2015 | Visit | NEUROLOGY LAURIE | MD Pollo Need updated | Dx); Sleep apnea; | | | | [address] [facility], | address | Stroke (HCC); | | | | [address] [place] | | Thyroid disease | | | | [place] [address] | | | | | | [phone] | | | +--------+---------+ + + + [...] supply of blood, brain tissue quickly dies. 0617-6203 [employer]. [address] [place] [address], [place] [address]. All righ ts reserved. This information is not intended as a substitute for professional medical care. Always follow your healthcare professional's instructions. documented in this encounter Progress Notes Baudilio Newman MD - 02/27/2015 10:31 AM PDTFormatting of this note might be differen t from the original. Baudilio Newman MD [address] [facility], [address] [place] [address] Neurology Outpatient New Patient Note Referring Provider: [...] history. Notes from her recent hospitalization at [facility] were reviewed in detail. Ms. Arndt started feeling off in the evening of 02/01. She felt dizzy and laid down to slee p. Upon waking, she felt her right side was numb. She tried to get up to go to the bathroom and realized she was weak as well on the right. She was taken to [facility] where she was diagnosed with [...] systol ically. She was reevaluated in the [facility] ED for one such event and [...] hospitalization . This specimen was characterized at [facility], but the report is not currently available for [facility]. Unfortunately, Ms. Arndt notes that her [...] Laterality: N/A; Surgeon: Frandy castellanos DO; Location: [facility] MAIN OR Current Medications: Outpatient Medications [...] tablet Take 15 mg by mouth nightly. [place]-3 Fatty Acids (FISH OIL CONCENTRATE) 1000 MG [...] BMI 46.04 kg /m2 Neck Circumference: 14" [place] Sleepiness Scale: 2 General: well developed and [...] Romberg test negative Radiographic Review: CTA from [facility] reviewed on iSITE. No significant stenoses seen [...] No results found for this basename: hba1c, csu1iae, ldl, ldldirect, ldlext, dldlex Lab Results Component [...] | | | | | [place], [place] | | | | | | [id number] | | | | | | | [...]
--- OUTSIDE RECORDS SUMMARY | ~2019-10-22 | XMS | Clinical Summary ---
Demographics + + + | Address | [address] [facility] | | | [place] [address] | + + + | Home Phone [...] [place] | | | | | [address] | | + + + + + Care Team Providers + +------+ + | Care Fiber Heel Piece Shaper Name | Role | Phone | + +------+ + PCP | Unavailable | + +------+ + Source Comments EDWARD is fully live on both [facility] Ambulatory and [facility] InPatient.[facility] Allergies Not on File Medications [...] | [employer] | xxxxxxxxxx | 02/22/20 | [phone] | [address] | [employer]ica | | | RE A & | | 15-Pre | 1 | [address] | re | | | B | | sent | | [place] | | | | | | | | [address] | | + +--------+ +--------+ + +--------+ + +--------+ +--------+ + + | Guarantor Name | Accoun | Relation to | Date | Phone | Billing Address | | | t Type | Patient | of | | | | | | | | | | + +--------+ +--------+ + + | CINDY ARNDT | Person | Self | [birth year] | [address] | | | al/Fam | | 1955 | [phone] | [address] [place] | | | devonte | | | 5 (Home) | [address] | + +--------+ +--------+ + +"
--- OUTSIDE RECORDS SUMMARY | ~2019-10-22 | XMS | Encounter Summary ---
Demographics + + + | Address | [address] [facility] | | | [place] [address] | + + + | Home Phone [...] [place] | | | | | [address] | | + + + + + Care Team Providers + +------+ + | Care Fishing Manager Name | Role | Phone | [...] + + | 08/09/ | Documentati | [facility] | Katharine Moncada, | Other (end of study) | | 2019 | on | CARDIOLOGY [place] | Technologist | | | | | [address] | | | | | | [place], [place] | | | | | | [address] | | | | | | [phone] | | | +--------+ + + + [...] Technologist - 08/09/2019 11:59 PM PDT Cardiac Personalized Living Manager Date of Event Monitor: 08/09/19 Referring Physician: [...] [place] | | | | | | [address] | | | | | | | | +--------+---------+ + + + documented as of this encounter Visit Diagnoses Not on filedocumented in this encounter"
--- OUTSIDE RECORDS SUMMARY | ~2019-10-22 | XMS | Encounter Summary ---
Demographics + + + | Address | [address] [facility] | | | [place] [address] | + + + | Home Phone [...] [place] | | | | | [address] | | + + + + + Care Team Providers + +------+ + | Care Precision [employer] Goods Worker Name | Role | Phone | [...] [address] | [address] [place], [place] | Hypothyroidism; | | | | [place], [place] | [address] | GERD; BACK PAIN, | | | | [address] | | LUMBAR, WITH | | | | [phone] | | RADICULOPATHY; | | | | [...] [place] | | | | | | [address] | | | | | | | [...]
--- OUTSIDE RECORDS SUMMARY | ~2019-10-22 | XMS | Encounter Summary ---
Demographics + + + | Address | [address] [facility] [address] [facility] [address] | | | [place] [address] | + + + | Home Phone [...] [place] | | | | | [address] | | + + + + + Care Team Providers + +------+ + | Care Psychological Operations Name | Role | Phone | + +------+ + | Natalee Andersen NP | PCP | | + +------+ + Encounter Details +--------+ + + + + | Date | Type | Department | Care Team | Description | +--------+ + + + + | 06/25/ | Hospital | [facility] | Latricia Feliciano | | | 2014 | Encounter | MED CTR ACUTE | D, PT [address] | | | | | PHYSICAL THERAPY | NEFTALIE [place] PAIGE | | | | | [address] | [address] | | | | | [place] [address] | | | | | | [phone] | | | +--------+ + + + [...] + + + +---------+ + + | [place]-3 Fatty | Take 1,000 mg by | [...] [place] | | | | | | [address] | | | | | | | | +--------+---------+ + + + documented as of this encounter Visit Diagnoses Not on filedocumented in this encounter"
--- OUTSIDE RECORDS SUMMARY | ~2019-10-22 | XMS | Encounter Summary ---
Demographics + + + | Address | [address] [facility] [address] [facility] | | | [place] [address] | + + + | Home Phone [...] [place] | | | | | [address] | | + + + + + Care Team Providers + +------+ + | Care Peanut Separator Name | Role | Phone | [...] + + | 07/06/ | Emergency | [facility] | Yunior [place], | Chest pain, | | 2014 | | MED CTR EMERGENCY | MD [address] | unspecified chest | | | | CENTER [address] | [place], [place] | pain type (Primary | | | | [place], [place] | [address] | Dx) | | | | [address] | | | | | | [phone] | | | +--------+ + + + [...] sent through Care Everywhere.CHEST PAIN, NON CARDIAC (ARABIC)documented in this encounter Medications at Time of [...] 0 | | | | (VITAMIN D-3) [address] | mouth Once a week. | | [...] | | | | | | | ([facility]) | | | | | [...] + + + +---------+ + + | [place]-3 Fatty | Take 1,000 mg by | [...] [place] | | | | | | [address] | | | | | | | [...] [address] | [place] | [phone] | | [facility] | | [address] | | | - LABORATORY | | [...] [address] | [place] | [phone] | | [facility] | | [address] | | | - LABORATORY | | [...] | | | | | | [employer] | | | | | [...] + | Performing | Address | City/State/Unm Cancer Centercode | Phone Number | | Organization | | | | + + + + + | [facility] | [address] | [place] | [phone] | | [facility] | | [address] | | | - LABORATORY | | [...] mL/min/1.73m2 | [facility] | | | IVORIAN | RATE,ESTIMATED | | MEDICAL | | | | mL/min/1.53o0Htxs than | | CENTER - | | [...] [address] | [place] | [phone] | | [facility] | | [address] | | | - LABORATORY | | [...] [address] | [place] | [phone] | | [facility] | | [address] | | | - LABORATORY | | [...] | | | | MD NAZARIO JON ([id number]) | | | | | | on [...]
--- OUTSIDE RECORDS SUMMARY | ~2019-10-22 | XMS | Encounter Summary ---
Demographics + + + | Address | [address] [facility] [address] [facility] | | | [place] [address] | + + + | Home Phone [...] [place], [place] | | | | | [address] | | + + + + + Care Team Providers + +------+ + | Care Esthetician Permanent Makeup Artist Name | Role | Phone | + +------+ + PCP | Unavailable | + +------+ + Encounter Details +--------+ + + + + | Date | Type | Department | Care Team | Description | +--------+ + + + + | 05/25/ | Hospital | [facility] | | | | 1991 | Encounter | MED CTR LABORATORY | | | | | | [address] | | | | | | [place] | | | | | | [address] | | | | | | [phone] | | | +--------+ + + + [...] | | | | | [place] | | | | | | [address] | | | | | | | | +--------+---------+ + + + documented as of this encounter Visit Diagnoses Not on filedocumented in this encounter"
--- OUTSIDE RECORDS SUMMARY | ~2019-10-22 | XMS | Encounter Summary ---
Demographics + + + | Address | [address] [facility] | | | [place] [address] | + + + | Home Phone [...] [place] | | | | | [address] | | + + + + + Care Team Providers + +------+ + | Care Precision Millwright Name | Role | Phone | + [...] + | 09/10/ | Documentati | [facility] | Katharine Moncada, | Other (urgent | | 2019 | on | CARDIOLOGY [place] | Technologist | report) | | | | [address] | | | | | | [place] | | | | | | [address] | | | | | | [phone] | | | +--------+ + + + [...] 04/10/ | Office | Cardiology | Desiree Petersno DO | | | 2020 | Visit | | [address] | | | | | | [place] | | | | | | [address] | | | | | | | | +--------+---------+ + + + documented as of this encounter Visit Diagnoses Not on filedocumented in this encounter"
--- OUTSIDE RECORDS SUMMARY | ~2019-10-22 | XMS | Encounter Summary ---
Demographics + + + | Address | [address] [facility] [address] | | | [place] [address] | + + + | Home Phone [...] [place] | | | | | [address] | | + + + + + Care Team Providers + +------+ + | Care Teacher Visually Impaired Name | Role | Phone | + +------+ + | Adriano Patrick MD | PCP | | + +------+ + Encounter Details +--------+ + + + + | Date | Type | Department | Care Team | Description | +--------+ + + + + | 06/10/ | Abstract | [facility] | Thierry Fry | | | 2014 | | MEDICINE [address] | MD Lisa [address] | | | | | [address] [place] | [address] [place] [address] | | | | | [place] [address] | [address] | | | | | [phone] | | | +--------+ + + + [...] | | | | | [place] | | | | | | [address] | | | | | | | [...]
--- OUTSIDE RECORDS SUMMARY | ~2019-10-22 | XMS | Encounter Summary ---
Demographics + + + | Address | [address] [facility] | | | [place] [address] | + + + | Home Phone [...] [place] | | | | | [address] | | + + + + + Care Team Providers + +------+ + | Care Bladder Trimmer Name | Role | Phone | [...] [place] | | | | | | [address] | | | | | | [phone] | | | +--------+ + + + [...] [place] | | | | | | [address] | | | | | | | | +--------+---------+ + + + documented as of this encounter Visit Diagnoses Not on filedocumented in this encounter"
--- OUTSIDE RECORDS SUMMARY | ~2019-10-22 | XMS | Encounter Summary ---
Demographics + + + | Address | [address] [facility] | | | [place] [address] | + + + | Home Phone [...] [place] | | | | | [address] | | + + + + + Care Team Providers + +------+ + | Care Senior Accounts Payable Clerk Name | Role | Phone | [...] + + | 08/08/ | Telephone | [facility] | Ashley Chávez | Other (Questions | | 2019 | | CARDIOLOGY [place] | Pollo, Character Actor | about coverage. ) | | | | [address] | | | | | | [place] | | | | | | [address] | | | | | | [phone] | | | +--------+ + + + [...] | | | | | [place] | | | | | | [address] | | | | | | | | +--------+---------+ + + + documented as of this encounter Visit Diagnoses Not on filedocumented in this encounter"
--- OUTSIDE RECORDS SUMMARY | ~2019-10-22 | XMS | Encounter Summary ---
Demographics + + + | Address | [address] [facility] | | | [place] [address] | + + + | Home Phone [...] [place] | | | | | [address] | | + + + + + Care Team Providers + +------+ + | Care Cna Hospice Name | Role | Phone | + [...] + + | 08/20/ | Documentati | [facility] | Katharine Moncada, | Other (urgent | | 2019 | on | CARDIOLOGY [place] | Technologist | report) | | | | [address] | | | | | | [place] | | | | | | [address] | | | | | | [phone] | | | +--------+ + + + [...] [place] | | | | | | [address] | | | | | | | | +--------+---------+ + + + documented as of this encounter Visit Diagnoses Not on filedocumented in this encounter"
--- OUTSIDE RECORDS SUMMARY | ~2019-10-22 | XMS | Clinical Summary ---
Demographics + + + | Address | [address] [facility] | | | [place] [address] | + + + | Home Phone [...] + + | Author | [facility] (Historical as of | | | 06-09-19) | + + + | Organization | [facility] (Historical as of | | | [...] Team Providers + +------+ + | Care Able Seaman Name | Role | Phone | + [...] | | Activ | | (VITAMIN D3) 69960 | a week. | | | | [...] + | T2DM (type 2 diabetes mellitus) ([facility]) | 04/13/2013 | + + [...] +------+-------+ + | MEDICARE | MEDICA | [id number] | | | [address] | | | RE | | | | [place] [phone] | | | IP-OP | | | [...] Self | [birth year] | Home: | [address] | | | al/Fam | | 1955 | [phone] | [address] [place] | | | [place] | | | [phone] | + +--------+ +--------+ + +
--- OUTSIDE RECORDS SUMMARY | ~2019-10-22 | XMS | Encounter Summary ---
Demographics + + + | Address | [address] [facility] | | | [place] [address] | + + + | Home Phone [...] [place], [place] | | | | | [address] | | + + + + + Care Team Providers + +------+ + | Care Resident Manager Name | Role | Phone | + +------+ + PCP | Unavailable | + +------+ + Encounter Details +--------+ + + + + | Date | Type | Department | Care Team | Description | +--------+ + + + + | 03/26/ | Hospital | [facility] | | | | 2001 | Encounter | MED CTR LABORATORY | | | | | | [address] | | | | | | [place] | | | | | | [address] | | | | | | [phone] | | | +--------+ + + + [...] | | | | | [place] | | | | | | [address] | | | | | | | | +--------+---------+ + + + documented as of this encounter Visit Diagnoses Not on filedocumented in this encounter"
--- OUTSIDE RECORDS SUMMARY | ~2019-10-22 | XMS | Encounter Summary ---
Demographics + + + | Address | [address] [facility] | | | [place] [address] | + + + | Home Phone [...] [place] | | | | | [address] | | + + + + + Care Team Providers + +------+ + | Care Service Bar Cashier Name | Role | Phone | [...] [address] | [address] [place], [place] | | | | | [place], [place] | [id number] | | | | | [address] | | | | | | [phone] | | | +--------+ + + + [...] | | | | | [place] | | | | | | [address] | | | | | | | | +--------+---------+ + + + documented as of this encounter Visit Diagnoses Not on filedocumented in this encounter"
--- OUTSIDE RECORDS SUMMARY | ~2019-10-22 | XMS | Encounter Summary ---
Demographics + + + | Address | [address] [facility] | | | [place] [address] | + + + | Home Phone [...] [place] | | | | | [address] | | + + + + + Care Team Providers + +------+ + | Care Increment Manager Name | Role | Phone | [...] [address] | [address] [place], [place] | | | | | [place], [place] | [id number] | | | | | [address] | | | | | | [phone] | | | +--------+ + + + [...] [place] | | | | | | [address] | | | | | | | | +--------+---------+ + + + documented as of this encounter Visit Diagnoses Not on filedocumented in this encounter"
--- OUTSIDE RECORDS SUMMARY | ~2019-10-22 | XMS | Encounter Summary ---
Demographics + + + | Address | [address] [facility] | | | [place] [address] | + + + | Home Phone [...] [place] | | | | | [address] | | + + + + + Care Team Providers + +------+ + | Care Retail Special Event Associate Name | Role | Phone | [...] + + | 01/02/ | Telephone | [facility] | Frandy Teresa, | Other (6m x-ray ) | | 2014 | | NEUROSURGERY [address] | DO [address] | | | | | [address] | [address] [place], [place] | | | | | [place], [place] | [phone] | | | | | [address] | | | | | | [phone] | | | +--------+ + + + [...] [place] | | | | | | [address] | | | | | | | | +--------+---------+ + + + documented as of this encounter Visit Diagnoses Not on filedocumented in this encounter"
--- OUTSIDE RECORDS SUMMARY | ~2019-10-22 | XMS | Clinical Summary ---
Demographics + + + | Address | [address] | | | [place] [address] | + + + | Home Phone [...] [place] | | | | | [address] | | + + + + + Care Team Providers + +------+ + | Care Special Equipment Technician Name | Role | Phone | [...] | | Activ | | (VITAMIN D-3) 49868 | mouth Once a week. | | [...] | | | | | | | ([facility]) | | | | | | | [...] | | | | e | | ([employer] VERIO FLEX | | | | | [...] + + | 10/22/ | Telephone | Cardiology | Susu Peralta, | Other | | 2018 | | | RN | | +--------+ + + + + | 10/04/ | Office | Cardiology | Desiree Peterson DO | ROGERS on CPAP (Primary | | 2018 | Visit | | | Dx); Morbid [...] | | 2018 | | | D, Dry Primer Powder Blender | calling to be seen | | [...] | | 2018 | | | D, Dry Primer Powder Blender | to take monitor | | | | | | off. ) | +--------+ + + + + | 08/28/ | Telephone | Cardiology | Ashley Chávez | Other (Patient has | | 2018 | | | D, Dry Primer Powder Blender | questions about | | | | [...] (Called to | 2018 | | | Pollo, Dry Primer Powder Blender | tell patient what Dr | | [...] (Patient was | | 2019 | | | D, Dry Primer Powder Blender | anxious about urgent | | | [...] Telephone | Cardiology | Ashley Chávez | Talia (Questions | | 2018 | | | D, Dry Primer Powder Blender | about coverage. ) | +--------+ + + + + | 07/30/ | Telephone | Cardiology | Ashley Chávez | Other (Patient | | 2018 | | | D, Dry Primer Powder Blender | concerns ) | +--------+ + + + + | 07/24/ | Telephone | Cardiology | Ashley Chávez | Other (Patient is | | 2018 | | | D, Dry Primer Powder Blender | worried about paying | | | [...] [place] | | | | | | [address] | | | | | | | [...] | | | Dtap/Tdap/Td (1 - | 6 | | | | Tdap) | | [...] | [employer] - | | 04/02/ | [id number] | | 5ccImplanted: Qty: 1 on | | Spine | MEDT | | 2019 | | | 07/02/2014 by Frandy Teresa | | Lumbar | | | | /[id number] | | A, DO at [facility] | | | | | | 6-020 | | [facility] | | | | | | / | + +------+--------+ +--------+--------+--------+ | Graft Infuse Bone Kit Xxs - | | N/A: | SOFAMOR | | 01/21/ | [id number] | | [id number]: Qty: 1 on | | Spine | DANEK - DIV | | 2014 | 0 / | | 07/02/2014 by Frandy Teresa | | Lumbar | [employer] | | | /[id number] | | A, DO at [facility] | | | - SFDK | | | 06AAH | | [facility] | | | | | | | + +------+--------+ +--------+--------+--------+ | Imp Spn Spcr Cpstn 8x26mm - | | N/A: | SOFAMOR | | 01/11/ | [id number] | | [id number]: Qty: 1 on | | Spine | DANEK - DIV | | 2021 | 6 / | | 07/02/2014 by Frandy Teresa | | Lumbar | [employer] | | | /[id number] | | DO Ronak at [facility] | | | - SFDK | | | 928 | | [facility] | | | | | | | + +------+--------+ +--------+--------+--------+ | Set Scrw Ns G5 Brk Off Ti | | N/A: | SOFAMOR | | | [id number] | | 4.75 - [id number]: | | Spine | DANEK - DIV | | | 0 / / | | Qty: 4 on 07/02/2014 by | | Lumbar | [employer] | | | | | Frandy Teresa DO at [facility] | | | - SFDK | | | | | [facility] | | | | | | | | [place] | | | | | | | + +------+--------+ +--------+--------+--------+ | RodImplanted: Qty: 1 on | | N/A: | | | | [id number] | | 07/02/2014 by Frandy Teresa | | Spine | | | | 540 / | | DO Ronak at [facility] | | Lumbar | | | | / | | [facility] | | | | | | | + +------+--------+ +--------+--------+--------+ | RodImplanted: Qty: 1 on | | N/A: | MEDTROL - | | | [id number] | | 07/02/2014 by Frandy Teresa | | Spine | MDTR | | | 545 / | | DO Ronak at [facility] | | Lumbar | | | | / | | [facility] | | | | | | | + +------+--------+ +--------+--------+--------+ | Screw 7.5x50mm Sextant - | | N/A: | [employer] - | | | [id number] | | [id number]: Qty: 1 on | | Spine | MEDT | | | [id number] | | 07/02/2014 by Frandy Teresa | | Lumbar | | | | / / | | DO Ronak at [facility] | | | | | | | | [facility] | | | | | | | + +------+--------+ +--------+--------+--------+ | Cannulated ScrewImplanted: | | N/A: | MEDTROL - | | | [id number] | | Qty: 1 on 07/02/2014 by | | Spine | MDTR | | | [id number] | | Frandy Teresa DO at [facility] | | Lumbar | | | | / / | | [facility] | | | | | [facility] | | | | | | | + +------+--------+ +--------+--------+--------+ | Cannulated ScrewImplanted: | | N/A: | [employer] - | | | [id number] | | Qty: 1 on 07/02/2014 by | | Spine | MEDT | | | [id number] | | Frandy Teresa DO at [facility] | | Lumbar | | | | / / | | [facility] | | | | | | | | [place] | | | | | | | [...] +--------+ +---------+--------+ | MEDICARE | MEDICA | [id number] | 02/22/20 | [phone] | | Medica | | | RE | | 09-Pre | 5 | | re | | | PART A | | sent | | | | | | AND B | | | | | | + +--------+ +--------+ +---------+--------+ | MEDICARE | MEDICA | [id number] | 02/22/20 | [phone] | | Medica [...] [place] | | | 1 (Home) | [address] | + +--------+ +--------+ + + | Cindy Arndt L | Person | Self | [birth year] | [address] | | | al/Fam | | 1955 | [phone] | [address] [place], [place] | | | [place] | | | 1 (Home) | [address] | + +--------+ +--------+ + + Advance Directives + + + + + | Type | Date Recorded | Patient | Explanation | | | | Dental Internship | | + + + + + | Power of | | | | | Nc Machinist | | | | + + + [...]
--- OUTSIDE RECORDS SUMMARY | ~2019-10-22 | XMS | Encounter Summary ---
Demographics + + + | Address | [address] [facility] | | | [place] [address] | + + + | Home Phone [...] [place], [place] | | | | | [address] | | + + + + + Care Team Providers + +------+ + | Care Site Medical Director Name | Role | Phone | + +------+ + PCP | Unavailable | + +------+ + Encounter Details +--------+ + + + + | Date | Type | Department | Care Team | Description | +--------+ + + + + | 04/16/ | Hospital | [facility] | | | | 1997 | Encounter | MED CTR XRAY [address] | | | | | | [address] | | | | | | [place] [address] | | | | | | [phone] | | | +--------+ + + + [...] | | | | [place] | | | | | | [address] | | | | | | | | +--------+---------+ + + + documented as of this encounter Visit Diagnoses Not on filedocumented in this encounter"
--- OUTSIDE RECORDS SUMMARY | ~2019-10-22 | XMS | Encounter Summary ---
Demographics + + + | Address | [address] [facility] | | | [place] [address] | + + + | Home Phone [...] [place] | | | | | [address] | | + + + + + [...] | 03/10/ | Refill | [facility] | Katharine Cardona PA-C | Medication Refill | | 2014 | | MEDICINE [address] | [address] [place] | | | | | Street [place] | [place] [address] | | | | | [place] [address] | [phone] | | | | | [phone] | | | +--------+--------+ + + + [...] [place] | | | | | | [address] | | | | | | | | +--------+---------+ + + + documented as of this encounter Visit Diagnoses + + | Diagnosis | + + | Essential hypertension - Primary Unspecified essential hypertension | + + documented in this encounter"
--- OUTSIDE RECORDS SUMMARY | ~2019-10-22 | XMS | Encounter Summary ---
Demographics + + + | Address | [address] [facility] | | | [place] [address] | + + + | Home Phone [...] [place] | | | | | [address] | | + + + + + Care Team Providers + +------+ + | Care Director Game Name | Role | Phone | + [...] + + | 08/16/ | Telephone | [facility] | Ashley Chávez | Other (Called to | | 2018 | | CARDIOLOGY [place] | Pollo, Adolescent Coordinator | tell patient what | | | | [address] | | Nicholas said. ) | | | | [address] | | | | | | [place] | | | | | | [address] | | | | | | [phone] | | | +--------+ + + + [...] [place] | | | | | | [address] | | | | | | | | +--------+---------+ + + + documented as of this encounter Visit Diagnoses Not on filedocumented in this encounter"
--- OUTSIDE RECORDS SUMMARY | ~2019-10-22 | XMS | Encounter Summary ---
Demographics + + + | Address | [address] [facility] | | | [place] [address] | + + + | Home Phone [...] [place] | | | | | [address] | | + + + + + Care Team Providers + +------+ + | Care Clay Carman Name | Role | Phone | + [...] + + | 08/09/ | Clinical | [facility] | Desiree Peterson DO | Syncope, unspecified | | 2019 | Support | CARDIOLOGY [place] | [address] | syncope type | | | | [address] | [place], [place] | | | | | [place] [address] | [address] | | | | | [place] | | | | | | [address] | Dora De La Torre | | | | | [phone] | [place] [address] | | | | | [address] | | | | | | [place] [address] | | | | | | [phone] | | | | | | | [...] [place] | | | | | | [address] | | | | | | | | +--------+---------+ + + + documented as of this encounter Visit Diagnoses + + | Diagnosis | + + | Syncope, unspecified syncope type | + + documented in this encounter"
--- OUTSIDE RECORDS SUMMARY | ~2019-10-22 | XMS | Encounter Summary ---
Demographics + + + | Address | [address] [facility] | | | [place] [address] | + + + | Home Phone [...] [place], [place] | | | | | [address] | | + + + + + Care Team Providers + +------+ + | Care Storage Receipt Poster Name | Role | Phone | + +------+ + PCP | Unavailable | + +------+ + Encounter Details +--------+ + + + + | Date | Type | Department | Care Team | Description | +--------+ + + + + | 04/16/ | [facility] | [facility] | Deon Gonzales | | | 2005 | Encounter | MED CTR SLEEP | MD [address] | | | | | [place] [address] | [address] [place] | | | | | [place], [place] | [place] [address] | | | | | [address] | [phone] | | | | | [phone] | | | +--------+ + + + [...] [place] | | | | | | [address] | | | | | | | | +--------+---------+ + + + documented as of this encounter Visit Diagnoses Not on filedocumented in this encounter"
--- OUTSIDE RECORDS SUMMARY | ~2019-10-22 | XMS | Encounter Summary ---
Demographics + + + | Address | [address] [facility] | | | [place] [address] | + + + | Home Phone [...] [place] | | | | | [address] | | + + + + + Care Team Providers + +------+ + | Care Diesel Truck Mechanic Name | Role | Phone | + +------+ + | Adriano Patrick MD | PCP | | + +------+ + Encounter Details +--------+ + + + + | Date | Type | Department | Care Team | Description | +--------+ + + + + | 06/12/ | Hospital | [facility] | Frandy Teresa, | No Show | | 2014 | Encounter | MED CTR | DO [address] | | | | | ELECTRODIAGNOSTICS | [address] [place], [place] | | | | | [address] [place] | [address] | | | | | [place] [address] | | | | | | [phone] | | | +--------+ + + + [...] [place] | | | | | | [address] | | | | | | | | +--------+---------+ + + + documented as of this encounter Visit Diagnoses Not on filedocumented in this encounter"
--- OUTSIDE RECORDS SUMMARY | ~2019-10-22 | XMS | Encounter Summary ---
Demographics + + + | Address | [address] [facility] | | | [place] [address] | + + + | Home Phone [...] [place] | | | | | [address] | | + + + + + Care Team Providers + +------+ + | Care Mobile Plant Operators Name | Role | Phone | + [...] | SLEEP DISORDER [address] | [address] | | | | | [address] [place] | [place], [place] | | | | | [place] [address] | [address] | | | | | [phone] | | | +--------+ + + + [...] | | | | | [place] | | | | | | [address] | | | | | | | | +--------+---------+ + + + documented as of this encounter Visit Diagnoses Not on filedocumented in this encounter"
--- OUTSIDE RECORDS SUMMARY | ~2019-10-22 | XMS | Encounter Summary ---
Demographics + + + | Address | [address] [facility] | | | [place] [address] | + + + | Home Phone [...] [place] | | | | | [address] | | + + + + + Care Team Providers + +------+ + | Care Liquid Hydrogen Plant Operator Name | Role | Phone [...] | Transcriptions | + + | Interface, Personal Lines Sales Executive In - 10/24/2006 3:09 AM PST | | [facility] | | Road [place], [place] [address] [place]ia | | [facility] Critical Care HospitalOPERATION RECORDMed Rec No.: [id number] Date: | [...]
--- OUTSIDE RECORDS SUMMARY | ~2019-10-22 | XMS | Encounter Summary ---
Demographics + + + | Address | [address] [facility] | | | [place] [address] | + + + | Home Phone [...] [place] | | | | | [address] | | + + + + + Care Team Providers + +------+ + | Care Supervisor Shearing Name | Role | Phone | + [...] Rd | | | | | | [place], [place] | | | | | | [address] | | | +--------+ + + + [...]
--- OUTSIDE RECORDS SUMMARY | ~2019-10-22 | XMS | Encounter Summary ---
Demographics + + + | Address | [address] [facility] | | | [place] [address] | + + + | Home Phone [...] [place], [place] | | | | | [address] | | + + + + + Care Team Providers + +------+ + | Care Stadium Manager Name | Role | Phone | + +------+ + PCP | Unavailable | + +------+ + Encounter Details +--------+ + + + + | Date | Type | Department | Care Team | Description | +--------+ + + + + | 07/17/ | Hospital | [facility] | | | | 1997 | Encounter | MED CTR EMERGENCY | | | | | | [address] | | | | | | [place] | | | | | | [address] | | | | | | [phone] | | | +--------+ + + + [...] | | | | | [place] | | | | | | [address] | | | | | | | | +--------+---------+ + + + documented as of this encounter Visit Diagnoses Not on filedocumented in this encounter"
--- OUTSIDE RECORDS SUMMARY | ~2019-10-22 | XMS | Encounter Summary ---
Demographics + + + | Address | [address] [facility] | | | [place] [address] | + + + | Home Phone [...] [place], [place] | | | | | [address] | | + + + + + Care Team Providers + +------+ + | Care Sugarcane Planter Name | Role | Phone | + +------+ + PCP | Unavailable | + +------+ + Encounter Details +--------+ + + + + | Date | Type | Department | Care Team | Description | +--------+ + + + + | 12/27/ | Hospital | [facility] | | | | 1995 | Encounter | MED CTR LABORATORY | | | | | | [address] | | | | | | [place] | | | | | | [address] | | | | | | [phone] | | | +--------+ + + + [...] | | | | | [place] | | | | | | [address] | | | | | | | | +--------+---------+ + + + documented as of this encounter Visit Diagnoses Not on filedocumented in this encounter"
--- OUTSIDE RECORDS SUMMARY | ~2019-10-22 | XMS | Encounter Summary ---
Demographics + + + | Address | [address] [facility] | | | [place] [address] | + + + | Home Phone [...] [place] | | | | | [address] | | + + + + + Care Team Providers + +------+ + | Care Associate Doctor Name | Role | Phone | [...] + | 06/27/ | Office | [facility] | Yecenia Richardson, | Hypertension, | | 2019 | Visit | CARDIOLOGY [place] | MD Nitin RODRIGUES | unspecified type | | | | [address] | [place], [place] | (Primary Dx); | | | | KEV SCHAFER [facility] | [address] | Bradycardia | | | | [place] | | | | | | [address] | | | | | | [phone] | | | +--------+---------+ + + + [...] urgent basis. Had an appointment today in [facility]. She has been feeling dizzy [...] Take by mouth. Blood Glucose Monitoring Suppl ([employer] VERIO FLEX SYSTEM) w/Device KIT by Does [...] mg by mouth Daily. Cholecalciferol (VITAMIN D-3) 69650 units CAPS Take 50,000 Units by mouth [...] tablet Take 10 mg by mouth nightly. Bacliff-3 Fatty Acids (FISH OIL CONCENTRATE) 1000 MG [...] | | | | | [place], [place] | | | | | | [address] | | | | | | | [...]
--- OUTSIDE RECORDS SUMMARY | ~2019-10-22 | XMS | Encounter Summary ---
Demographics + + + | Address | [address] [facility] [address] | | | [place] [address] | + + + | Home Phone [...] [place] | | | | | [address] | | + + + + + Care Team Providers + +------+ + | Care [employer] Architect Name | Role | Phone | [...] [place] | | | | | | [address] | | | | | | [phone] | | | +--------+ + + + [...] [place] | | | | | | [id number] | | | | | | | | +--------+---------+ + + + documented as of this encounter Visit Diagnoses Not on filedocumented in this encounter"
--- OUTSIDE RECORDS SUMMARY | ~2019-10-22 | XMS | Encounter Summary ---
Demographics + + + | Address | [address] [facility] [address] [facility] | | | [place] [address] | + + + | Home Phone [...] [place], [place] | | | | | [address] | | + + + + + Care Team Providers + +------+ + | Care Manager Housekeeping Name | Role | Phone | + +------+ + PCP | Unavailable | + +------+ + Encounter Details +--------+ + + + + | Date | Type | Department | Care Team | Description | +--------+ + + + + | 06/17/ | Hospital | [facility] | | | | 1991 - | Encounter | MED CTR GENERIC PSY | | | | | | CONV DEPT [address] | | | | 06/18/ | | [address], | | | | 1991 | | [place] [address] | | | | | | [phone] | | | +--------+ + + + [...] [place] | | | | | | [address] | | | | | | | | +--------+---------+ + + + documented as of this encounter Visit Diagnoses Not on filedocumented in this encounter"
--- OUTSIDE RECORDS SUMMARY | ~2019-10-22 | XMS | Encounter Summary ---
Demographics + + + | Address | [address] [facility] [address] [facility] [address] [facility] | | | [place] [address] | + + + | Home Phone [...] [place] | | | | | [address] | | + + + + + Care Team Providers + +------+ + | Care Skin Therapist Name | Role | Phone | [...] + + | 08/20/ | Documentati | [facility] | Katharine Moncada, | Other (urgent | | 2019 | on | CARDIOLOGY [place] | Technologist | report) | | | | [address] | | | | | | [place] | | | | | | [address] | | | | | | [phone] | | | +--------+ + + + [...] [place] | | | | | | [address] | | | | | | | | +--------+---------+ + + + documented as of this encounter Visit Diagnoses Not on filedocumented in this encounter"
--- OUTSIDE RECORDS SUMMARY | ~2019-10-22 | XMS | Encounter Summary ---
Demographics + + + | Address | [address] [facility] [address] [facility] | | | [place] [address] | + + + | Home Phone [...] [place] | | | | | [address] | | + + + + + Care Team Providers + +------+ + | Care Crop Or Grain Farmworker Name | Role | Phone | + +------+ + | Basim Bolanos MD | PCP | | + +------+ + Encounter Details +--------+ + + + + | Date | Type | Department | Care Team | Description | +--------+ + + + + | 02/22/ | Abstract | [facility] [place] | [facility], | | | 2012 | | GASTROENTEROLOGY | [place] [address] | | | | | [address] [place] | [place], [address] | | | | | [address] [place], [place] | [place], [place] | | | | | [address] | [address] | | | | | [phone] | | | +--------+ + + + [...] [place] | | | | | | [address] | | | | | | | | +--------+---------+ + + + documented as of this encounter Visit Diagnoses Not on filedocumented in this encounter"
--- OUTSIDE RECORDS SUMMARY | ~2019-10-22 | XMS | Encounter Summary ---
Demographics + + + | Address | [address] [facility] [address] [facility] | | | [place] [address] | + + + | Home Phone [...] [place] | | | | | [address] | | + + + + + Care Team Providers + +------+ + | Care Supervisor Fryer Farm Name | Role | Phone | + [...] + + | 08/15/ | Documentati | [facility] | Katharine Moncada, | Other (urgent | | 2019 | on | CARDIOLOGY [place] | Technologist | report) | | | | [address] | | | | | | [place] | | | | | | [address] | | | | | | [phone] | | | +--------+ + + + [...] [place] | | | | | | [address] | | | | | | | | +--------+---------+ + + + documented as of this encounter Visit Diagnoses Not on filedocumented in this encounter"
--- OUTSIDE RECORDS SUMMARY | ~2019-10-22 | XMS | Encounter Summary ---
Demographics + + + | Address | [address] [facility] [address] [facility] | | | [place] [address] | + + + | Home Phone [...] [place] | | | | | [address] | | + + + + + Care Team Providers + +------+ + | Care Residential Electrician Name | Role | Phone | [...] Dx) | | | | [address] | [address] [place], [place] | | | | | [place], [place] | [address] | | | | | [address] | | | | | | [phone] | | | +--------+ + + + [...] + + +---------+ + + | [place]-3 Fatty | Take 1,000 mg [...] [place] | | | | | | [id number] | | | | | | | [...] mL/min/1.73m2 | [facility] | | | [facility] | RATE,ESTIMATED | | MEDICAL | | | | mL/min/1.22m1Vued than | | CENTER - | | [...] + | [facility] | [address] | [place], [place] | [phone] | | [facility] | | [address] | | | - LABORATORY | | | | + + + + + | [facility] | [address] | [place], [place] | | | [facility] | | [address] | | | - LABORATORY | | [...] + | [facility] | [address] | [place] | [phone] | | [facility] | | [address] | | | - LABORATORY | | | | + + + + + | [facility] | [address] | [place], [place] | | | [facility] | | [address] | | | - LABORATORY | | [...] [address] | [place] | [phone] | | [facility] | | [address] | | | - LABORATORY | | | | + + + + + | [facility] | [address] | [place] | | | [facility] | | [address] | | | - LABORATORY | | [...] | | [facility] | | [address] | | | - BLOOD BANK | [...] + | [facility] | [address] | [place] | [phone] | | [facility] | | [address] | | | - LABORATORY | | | | + + + + + | [facility] | [address] | [place], [place] | | | [facility] | | [address] | | | - LABORATORY | | [...]
--- OUTSIDE RECORDS SUMMARY | ~2019-10-22 | XMS | Encounter Summary ---
Demographics + + + | Address | [address] [facility] [address] [facility] | | | [place] [address] | + + + | Home Phone [...] [place] | | | | | [address] | | + + + + + Care Team Providers + +------+ + | Care Wall Covering Installer Name | Role | Phone | [...] + + | 07/19/ | Office | [facility] | Desiree Peterson DO | Syncope, unspecified | | 2019 | Visit | CARDIOLOGY [place] | [address] | syncope type | | | | [address] | [place], [place] | (Primary Dx); | | | | [address] [place] | [address] | Essential | | | | [place] | | hypertension; | | | | [address] | | Irregular heartbeat | | | | [phone] | | | +--------+---------+ + + + [...] Peterson DO - 07/19/2019 10:40 AM PDT [facility] Cardiology Cardiology Follow Up Note Reason [...] by mouth daily. Blood Glucose Monitoring Suppl ([employer] VERIO FLEX SYSTEM) w/Device KIT by Does not ap ply route. budesonide-formoterol (SYMBICORT) 160-4.5 MCG/ACT inhaler Inhale 2 puffs into the lungs 2 (two) times daily. Calcium Carbonate Antacid 1000 MG tablet Take 1,000 mg by mouth 3 (three) times daily. Cholecalciferol (VITAMIN D3) 79595 units CAPS Take by mouth once a [...] [place] | | | | | | [address] | | | | | | | [...]
--- OUTSIDE RECORDS SUMMARY | ~2019-10-22 | XMS | Encounter Summary ---
Demographics + + + | Address | [address] [address] [facility] | | | [place] [address] | + + + | Home Phone [...] [place] | | | | | [address] | | + + + + + Care Team Providers + +------+ + | Care Toddler Caregiver Name | Role | Phone | [...] + | 08/16/ | Documentati | [facility] | Katharine Moncada, | Other (urgent | | 2019 | on | CARDIOLOGY [place] | Technologist | report) | | | | [address] | | | | | | [place] | | | | | | [address] | | | | | | [phone] | | | +--------+ + + + [...] [place] | | | | | | [address] | | | | | | | | +--------+---------+ + + + documented as of this encounter Visit Diagnoses Not on filedocumented in this encounter"
--- OUTSIDE RECORDS SUMMARY | ~2019-10-22 | XMS | Encounter Summary ---
Demographics + + + | Address | [address] [facility] [address] [facility] | | | [place] [address] | + + + | Home Phone [...] [place], [place] | | | | | [address] | | + + + + + Care Team Providers + +------+ + | Care Respite Provider Name | Role | Phone | + +------+ + PCP | Unavailable | + +------+ + Encounter Details +--------+ + + + + | Date | Type | Department | Care Team | Description | +--------+ + + + + | 09/24/ | Hospital | [facility] | | | | 1993 | Encounter | MED CTR LABORATORY | | | | | | [address] | | | | | | [place] | | | | | | [address] | | | | | | [phone] | | | +--------+ + + + [...] | | | | | [place] | | | | | | [address] | | | | | | | | +--------+---------+ + + + documented as of this encounter Visit Diagnoses Not on filedocumented in this encounter"
--- OUTSIDE RECORDS SUMMARY | ~2019-10-22 | XMS | Encounter Summary ---
Demographics + + + | Address | [address] [address] [facility] | | | [place] [address] | + + + | Home Phone [...] [place], [place] | | | | | [address] | | + + + + + Care Team Providers + +------+ + | Care Pbx Inspector Name | Role | Phone | [...] | SR | | | | | [phone] | | | +--------+ + + + [...] [place] | | | | | | [address] | | | | | | | | +--------+---------+ + + + documented as of this encounter Visit Diagnoses Not on filedocumented in this encounter
--- OUTSIDE RECORDS SUMMARY | ~2019-10-22 | XMS | Encounter Summary ---
Demographics + + + | Address | [address] [facility] [address] [facility] | | | [place] [address] | + + + | Home Phone [...] [place], [place] | | | | | [address] | | + + + + + Care Team Providers + +------+ + | Care Oncology Pharmacist Name | Role | Phone | + +------+ + PCP | Unavailable | + +------+ + Encounter Details +--------+ + + + + | Date | Type | Department | Care Team | Description | +--------+ + + + + | 01/16/ | Hospital | [facility] | | | | 2002 | Encounter | MED CTR XRAY [address] | | | | | | [address] [place] | | | | | | [place] [address] | | | | | | [phone] | | | +--------+ + + + [...] | | | | | [place] | | | | | | [address] | | | | | | | | +--------+---------+ + + + documented as of this encounter Visit Diagnoses Not on filedocumented in this encounter"
--- OUTSIDE RECORDS SUMMARY | ~2019-10-22 | XMS | Encounter Summary ---
Demographics + + + | Address | [address] [address] [facility] | | | [place] [address] | + + + | Home Phone [...] [place] | | | | | [address] | | + + + + + [...] | Frandy Simons DO | [address] | | | | | of skin | [address] | [place], | | | | | sensation | [address] | [place] | | | | | Arthrodesis | [place], [place] | [address] | | | | | status Left | [address] | Phone: | | | | | leg | Phone: | [phone] | | | | | weakness | [phone] | Fax: | | | | | Procedures | Fax: | [phone] | | | | | MRI Lumbar | [phone] | | | | | | Spine [...] | Frandy Simons DO | [address] | | | | | of skin | [address] | [place], | | | | | sensation | [address] | [place] | | | | | Arthrodesis | [place] | [address] | | | | | status Left | [address] | Phone: | | | | | leg | Phone: | [phone] | | | | | weakness | [phone] | Fax: | | | | | Procedures | Fax: | [phone] | | | | | MRI Lumbar | [phone] | | | | | | Spine wo | | | | | | | Contrast | | | +--------+--------+ + + + + Encounter Details +--------+ + + + + | Date | Type | Department | Care Team | Description | +--------+ + + + + | 08/19/ | Hospital | [facility] | Frandy Teresa, | Status post lumbar | | 2013 | Encounter | MED CTR MRI [address] | DO [address] | spinal fusion; Left | | | | [address] [place], | [address] [place] | leg numbness; Left | | | | [place] [address] | [address] | leg weakness | | | | [phone] | | | +--------+ + + + [...] [place] | | | | | | [address] | | | | | | | [...] the round structure with high T1 and H7aixksz in the right L3 vertebral | | [...] + | MISCELLANEOUS LAB | | | [phone] | + +---------+ + + | MISCELANIOUS LAB | | | [phone] | + +---------+ + + documented in [...]
--- OUTSIDE RECORDS SUMMARY | ~2019-10-22 | XMS | Encounter Summary ---
Demographics + + + | Address | [address] [facility] [address] [facility] | | | [place] [address] | + + + | Home Phone [...] [place], [place] | | | | | [address] | | + + + + + Care Team Providers + +------+ + | Care Highway Truck Driver Name | Role | Phone | + +------+ + PCP | Unavailable | + +------+ + Encounter Details +--------+ + + + + | Date | Type | Department | Care Team | Description | +--------+ + + + + | 02/02/ | Hospital | [facility] | | | | 1997 | Encounter | MED CTR EMERGENCY | | | | | | [address] | | | | | | [place] | | | | | | [address] | | | | | | [phone] | | | +--------+ + + + [...] | | | | | [place] | | | | | | [address] | | | | | | | | +--------+---------+ + + + documented as of this encounter Visit Diagnoses Not on filedocumented in this encounter"
--- OUTSIDE RECORDS SUMMARY | ~2019-10-22 | XMS | Encounter Summary ---
Demographics + + + | Address | [address] [facility] | | | [place] [address] | + + + | Home Phone [...] [place] | | | | | [address] | | + + + + + Care Team Providers + +------+ + | Care History Card Clerk Name | Role | Phone | [...] | | | | | pain, | [place], [place] | | | | | | bilateral | [address] | | | | | | Degenerative | Phone: | | | | | | disc | [phone] | | | | | | disease, | Fax: | | | | | | lumbar | [phone] | | | | | | Spinal [...] [address] | [address] [place], [place] | (Primary Dx); Knee | | | | [place], [place] | [address] | pain, bilateral; | | | | [address] | | DEGENERATIVE DISC | | | | [phone] | | DISEASE, LUMBAR | | | [...] | | | | [place] | | | | | | [address] | | | | | | | [...]
--- OUTSIDE RECORDS SUMMARY | ~2019-10-22 | XMS | Encounter Summary ---
Demographics + + + | Address | [address] [facility] | | | [place] [address] | + + + | Home Phone [...] [place] | | | | | [address] | | + + + + + Care Team Providers + +------+ + | Care Finisher Denture Name | Role | Phone | + +------+ + | Adriano Partick MD | PCP | | + +------+ + Reason for Visit +--------+ + | Reason | Comments | +--------+ + | Other | urgent report | +--------+ + Encounter Details +--------+ + + + + | Date | Type | Department | Care Team | Description | +--------+ + + + + | 08/14/ | Documentati | [facility] | Katharine Moncada, | Other (urgent | | 2019 | on | CARDIOLOGY [place] | Technologist | report) | | | | [address] | | | | | | [place] | | | | | | [address] | | | | | | [phone] | | | +--------+ + + + [...] [place] | | | | | | [address] | | | | | | | | +--------+---------+ + + + documented as of this encounter Visit Diagnoses Not on filedocumented in this encounter"
--- OUTSIDE RECORDS SUMMARY | ~2019-10-22 | XMS | Encounter Summary ---
Demographics + + + | Address | [address] [facility] | | | [place] [address] | + + + | Home Phone [...] [place] | | | | | [address] | | + + + + + Care Team Providers + +------+ + | Care Java Development Team Lead Name | Role | Phone [...] | [address] [place] | [place], [address] | | | | | [address] [place], [place] | [place], [place] | | | | | [address] | [address] | | | | | [phone] | | | +--------+ + + + [...] [place] | | | | | | [address] | | | | | | | | +--------+---------+ + + + documented as of this encounter Visit Diagnoses Not on filedocumented in this encounter"
--- OUTSIDE RECORDS SUMMARY | ~2019-10-22 | XMS | Encounter Summary ---
Demographics + + + | Address | [address] [facility] | | | [place] [address] | + + + | Home Phone [...] [place] | | | | | [address] | | + + + + + Care Team Providers + +------+ + | Care Backshoe Person Name | Role | Phone | + +------+ + | Nataele Andersen NP | PCP | | + [...] [address] | [address] [place], [place] | (Primary Dx) | | | | [place], [place] | [address] | | | | | [address] | | | | | | [phone] | | | +--------+ + + + [...] [place] | | | | | | [address] | | | | | | | [...] + | MISCELLANEOUS LAB | | | [phone] | + +---------+ + + | MISCELANIOUS LAB | | | [phone] | + +---------+ + + documented in this encounter Visit Diagnoses + + | Diagnosis | + + | Status post lumbar spinal fusion - Primary Arthrodesis status | + + documented in this encounter"
--- OUTSIDE RECORDS SUMMARY | ~2019-10-22 | XMS | Encounter Summary ---
Demographics + + + | Address | [address] [facility] | | | [place] [address] | + + + | Home Phone [...] [place] | | | | | [address] | | + + + + + Care Team Providers + +------+ + | Care Parachute Inspector Name | Role | Phone | [...] + + | 09/10/ | Documentati | [facility] | Katharine Moncada, | Other (urgent | | 2019 | on | CARDIOLOGY [place] | Technologist | report) | | | | [address] | | | | | | [place] | | | | | | [address] | | | | | | [phone] | | | +--------+ + + + [...] [place] | | | | | | [address] | | | | | | | | +--------+---------+ + + + documented as of this encounter Visit Diagnoses Not on filedocumented in this encounter"
--- OUTSIDE RECORDS SUMMARY | ~2019-10-22 | XMS | Encounter Summary ---
Demographics + + + | Address | [address] [facility] | | | [place] [address] | + + + | Home Phone [...] [place], [place] | | | | | [address] | | + + + + + Care Team Providers + +------+ + | Care Siding Mechanic Name | Role | Phone | + +------+ + PCP | Unavailable | + +------+ + Encounter Details +--------+ + + + + | Date | Type | Department | Care Team | Description | +--------+ + + + + | 05/25/ | Hospital | [facility] | | | | 1991 | Encounter | MED CTR LABORATORY | | | | | | [address] | | | | | | [place] | | | | | | [address] | | | | | | [phone] | | | +--------+ + + + [...] | | | | | [place] | | | | | | [address] | | | | | | | | +--------+---------+ + + + documented as of this encounter Visit Diagnoses Not on filedocumented in this encounter"
--- OUTSIDE RECORDS SUMMARY | ~2019-10-22 | XMS | Encounter Summary ---
Demographics + + + | Address | [address] [facility] [address] [facility] | | | [place] [address] | + + + | Home Phone [...] [place], [place] | | | | | [address] | | + + + + + Care Team Providers + +------+ + | Care Dashboard Developer Name | Role | Phone | + +------+ + PCP | Unavailable | + +------+ + Encounter Details +--------+ + + + + | Date | Type | Department | Care Team | Description | +--------+ + + + + | 07/17/ | Hospital | [facility] | | | | 1997 - | Encounter | MED CTR GENERIC PSY | | | | | | CONV DEPT [address] | | | | 07/25/ | | [address], | | | | 1997 | | [place] [address] | | | | | | [phone] | | | +--------+ + + + [...] [place] | | | | | | [address] | | | | | | | | +--------+---------+ + + + documented as of this encounter Visit Diagnoses Not on filedocumented in this encounter"
--- OUTSIDE RECORDS SUMMARY | ~2019-10-22 | XMS | Encounter Summary ---
Demographics + + + | Address | [address] [facility] [address] [facility] [address] [facility] | | | [place] [address] | + + + | Home Phone [...] [place] | | | | | [address] | | + + + + + Care Team Providers + +------+ + | Care News Photographer Name | Role | Phone | [...] [address] | | | | | [place], [place] | Shaheen Simons | | | | | [address] | [place] [address] | | | | | [phone] | [phone] | | | | | | | [...] [place] | | | | | | [address] | | | | | | | [...] GIVEN Testing | | | performed at [facility];[address] [place] [address] CULTURE | | | 50,000 TO 100,000 CFU/ML | | | MIXED GRAM POSITIVE HAIDER NO SUSCEPTIBILITY TO FOLLOW | | | MULTIPLE ORGANISM TYPES PRESENT, | | | SUGGESTIVE OF CONTAMINATION OR COLONIZATION. SUGGEST RECOLLECTION FOR | | | CULTURE. Testing | | | performed at [facility];[address] [place] [address];[place] [address] REPORT | | | STATUS 06/08/2012 FINAL [...]
--- OUTSIDE RECORDS SUMMARY | ~2019-10-22 | XMS | Encounter Summary ---
Demographics + + + | Address | [address] [facility] [address] [facility] | | | [place] [address] | + + + | Home Phone [...] [place], [place] | | | | | [address] | | + + + + + Care Team Providers + +------+ + | Care Director Of Product Development Name | Role | Phone | + +------+ + PCP | Unavailable | + +------+ + Encounter Details +--------+ + + + + | Date | Type | Department | Care Team | Description | +--------+ + + + + | 09/10/ | Hospital | [facility] | | | | 1992 | Encounter | MED CTR LABORATORY | | | | | | [address] | | | | | | [place] | | | | | | [address] | | | | | | [phone] | | | +--------+ + + + [...] | | | | | [place] | | | | | | [address] | | | | | | | | +--------+---------+ + + + documented as of this encounter Visit Diagnoses Not on filedocumented in this encounter"
--- OUTSIDE RECORDS SUMMARY | ~2019-10-22 | XMS | Encounter Summary ---
Demographics + + + | Address | [address] [facility] [facility] | | | [place] [address] | + + + | Home Phone [...] [place] | | | | | [address] | | + + + + + Care Team Providers + +------+ + | Care Customer Care Assistant Name | Role | Phone | [...] + + | 07/06/ | Emergency | [facility] | Yunior Sherman, | Chest pain, | | 2014 | | MED CTR EMERGENCY | MD [address] | unspecified chest | | | | CENTER [address] | [place], [place] | pain type (Primary | | | | [place], [place] | [address] | Dx) | | | | [address] | | | | | | [phone] | | | +--------+ + + + [...] sent through Care Everywhere.CHEST PAIN, NON CARDIAC (GREEK)documented in this encounter Medications at Time of [...] 0 | | | | (VITAMIN D-3) [address] | mouth Once a week. | | [...] | | | | | | | ([facility]) | | | | | | + [...] + + + +---------+ + + | Imperial-3 Fatty | Take 1,000 mg by | [...] [place] | | | | | | [address] | | | | | | | [address] | [place] | [phone] | | [facility] | | [address] | | | - LABORATORY | | [...] [address] | [place] | [phone] | | [facility] | | [address] | | | - LABORATORY | | [...] | | | | | | [employer] | | | | | [...] + + | Performing | Address | City/State/[facility] | Phone Number | | Organization | | | | + + + + + | [facility] | [address] | [place] | [phone] | | [facility] | | [address] | | | - LABORATORY | | [...] | | MEDICAL | | | | mL/min/1.21v1Tpmi than | | CENTER - | | [...] [address] | [place] | [phone] | | [facility] | | [address] | | | - LABORATORY | | [...] [address] | [place] | [phone] | | [facility] | | [address] | | | - LABORATORY | | [...] | | | | MD NAZARIO JON ([id number]) | | | | | | on [...]
--- OUTSIDE RECORDS SUMMARY | ~2019-10-22 | XMS | Encounter Summary ---
Demographics + + + | Address | [address] [facility] | | | [place] [address] | + + + | Home Phone [...] [place] | | | | | [address] | | + + + + + Care Team Providers + +------+ + | Care Oil Field Operator Name | Role | Phone | [...] | | | spondylolist | | [address] | | | | | hesis | | [place], | | | | | Spinal | | [place] [address] | | | | | stenosis, | | Phone: | | | | | lumbar | | [phone] | | | | | region, | | Fax: | | | | | without | | [phone] | | | | | neurogenic | [...] | | | | | | | [place] | | | | | | [...] | | | | | | [place] | | | | | | | [...] | | | | | | SEG [place] | | | | | | | [...] + | 07/02/ | Surgery | [facility] | Frandy Teresa, | MIS L5-S1 | | 2013 | | MED CTR OR INTRA OP | DO [address] | TRANSFORAMINAL | | | | [address] | [address] [place], [place] | LUMBAR INTERBODY | | | | [place] | [id number] | FUSION | | | | [address] | | | | | | [phone] | | | +--------+---------+ + + + [...] Take 15 mg by mouth nightl y. Peralta-3 Fatty Acids (FISH OIL CONCENTRATE) 1000 MG [...] + + + +---------+ + + | Peralta-3 Fatty | Take 1,000 mg by | [...] with [facility] any time. aria T Neff RN - 07/04/2014 6:56 PM PDTFoley cath dc'd and MARI drain dc'd no problems. Chris Lynn PA-C - 07/04/2014 7:43 AM PDT [facility] PROGRESS NOTE Pt. Name/Age/: Cindy Arndt 58 y.o. 1955 Med. Record Number: [id number] Date of admission: 07/02/2014 Subjective: The patient [...] home medications. D/C plan: Home tomorrow with [facility]. D/c mari drain and riley cath today. D/c level vial inspector and tester. Patient Active Problem List Diagnosis LUMBAR DISC [...] PA-C - 07/03/2014 7:13 AM PDT . [facility] PROGRESS NOTE Pt. Name/Age/: Cindy Arndt 58 y.o. 1955 Med. Record Number: [id number] Date of admission: 07/02/2014 Subjective: The patient [...] Electronically signed by: Chris Nicole, 07/03/2014 7:13 [facility] Ton Johnston, KRIS - 07/03/2014 6:50 [...] | | | | [place] | | | | | | [address] | | | | | | | [...] + | [facility] | [address] | [place], [place] | [phone] | | [facility] | | [address] | | | - LABORATORY | | | | + + + + + | [facility] | [address] | [place], [place] | | | [facility] | | [address] | | | - LABORATORY | | [...] + | [facility] | [address] | [place] | [phone] | | [facility] | | [address] | | | - LABORATORY | | | | + + + + + | [facility] | [address] | [place] | | | [facility] | | [address] | | | - LABORATORY | | [...] + | [facility] | [address] | [place], [place] | [phone] | | [facility] | | [address] | | | - LABORATORY | | | | + + + + + | [facility] | [address] | [place], [place] | | | [facility] | | [address] | | | - LABORATORY | | [...] + | [facility] | [address] | [place] | [phone] | | [facility] | | [address] | | | - LABORATORY | | | | + + + + + | [facility] | [address] | [place], [place] | | | [facility] | | [address] | | | - LABORATORY | | [...] + | [facility] | [address] | [place], [place] | [phone] | | [facility] | | [address] | | | - LABORATORY | | | | + + + + + | [facility] | [address] | [place] | | | [facility] | | [address] | | | - LABORATORY | | [...] + | [facility] | [address] | [place] | [phone] | | [facility] | | [address] | | | - LABORATORY | | | | + + + + + | [facility] | [address] | [place] | | | [facility] | | [address] | | | - LABORATORY | | [...] + | [facility] | [address] | [place] | [phone] | | [facility] | | [address] | | | - LABORATORY | | | | + + + + + | [facility] | [address] | [place] | | | [facility] | | [address] | | | - LABORATORY | | [...] + | [facility] | [address] | [place] | [phone] | | [facility] | | [address] | | | - LABORATORY | | | | + + + + + | [facility] | [address] | [place] | | | [facility] | | [address] | | | - LABORATORY | | [...] [address] | [place] | [phone] | | [facility] | | [address] | | | - LABORATORY | | | | + + + + + | [facility] | [address] | [place], [place] | | | [facility] | | [address] | | | - LABORATORY | | [...] | of hardware for posterior fusion from G4onevosy S1 with interbody hardware at L5-S1. The [...] + | MISCELLANEOUS LAB | | | [phone] | + +---------+ + + | MISCELANIOUS LAB | | | [phone] | + +---------+ + + POC Glucose [...] + | [facility] | [address] | [place] | [phone] | | [facility] | | [address] | | | - LABORATORY | | | | + + + + + | [facility] | [address] | [place] | | | [facility] | | [address] | | | - LABORATORY | | [...] + | [facility] | [address] | [place], [place] | [phone] | | [facility] | | [address] | | | - LABORATORY | | | | + + + + + | [facility] | [address] | [place] | | | [facility] | | [address] | | | - LABORATORY | | [...] + | [facility] | [address] | [place] | [phone] | | [facility] | | [address] | | | - LABORATORY | | | | + + + + + | [facility] | [address] | [place] | | | [facility] | | [address] | | | - LABORATORY | | [...] + | [facility] | [address] | [place] | [phone] | | [facility] | | [address] | | | - LABORATORY | | | | + + + + + | [facility] | [address] | [place] | | | [facility] | | [address] | | | - LABORATORY | | [...] + | [facility] | [address] | [place], [place] | [phone] | | [facility] | | [address] | | | - LABORATORY | | | | + + + + + | [facility] | [address] | [place], [place] | | | [facility] | | [address] | | | - LABORATORY | | [...] ST. | [address] | [place] | | | [facility] | | [address] | | | - BLOOD BANK | [...] mLs | | Surgical | | 1:200,000 0.25-1:110776 % | | 14 12:42 | | [...]
--- OUTSIDE RECORDS SUMMARY | ~2019-10-22 | XMS | Encounter Summary ---
Demographics + + + | Address | [address] [facility] | | | [place] [address] | + + + | Home Phone [...] [place], [place] | | | | | [address] | | + + + + + Care Team Providers + +------+ + | Care Pbx Manager Name | Role | Phone | + +------+ + PCP | Unavailable | + +------+ + Encounter Details +--------+ + + + + | Date | Type | Department | Care Team | Description | +--------+ + + + + | 02/28/ | Hospital | [facility] | Deon Gonzales | | | 2011 | Encounter | MED CTR SLEEP | MD Laureano [address] | | | | | [place] [address] | [place] | | | | | [place], [place] | [place] [address] | | | | | [address] | [phone] | | | | | [phone] | | | +--------+ + + + [...] [place] | | | | | | [address] | | | | | | | | +--------+---------+ + + + documented as of this encounter Visit Diagnoses Not on filedocumented in this encounter"
--- OUTSIDE RECORDS SUMMARY | ~2019-10-22 | XMS | Encounter Summary ---
Demographics + + + | Address | [address] [facility] | | | [place] [address] | + + + | Home Phone [...] [place], [place] | | | | | [address] | | + + + + + Care Team Providers + +------+ + | Care Radio Broadcaster Name | Role | Phone | + +------+ + PCP | Unavailable | + +------+ + Encounter Details +--------+ + + + + | Date | Type | Department | Care Team | Description | +--------+ + + + + | 02/22/ | Hospital | [facility] | | | | 1996 | Encounter | MED CTR EMERGENCY | | | | | | [address] | | | | | | [place] | | | | | | [address] | | | | | | [phone] | | | +--------+ + + + [...] | | | | | [place] | | | | | | [address] | | | | | | | | +--------+---------+ + + + documented as of this encounter Visit Diagnoses Not on filedocumented in this encounter"
--- OUTSIDE RECORDS SUMMARY | ~2019-10-22 | XMS | Encounter Summary ---
Demographics + + + | Address | [address] [facility] | | | [place] [address] | + + + | Home Phone [...] [place] | | | | | [address] | | + + + + + Care Team Providers + +------+ + | Care Director Student Union Name | Role | Phone | [...] + + | 07/01/ | Telephone | [facility] | Frandy Teresa, | Other (Surgery ) | | 2013 | | NEUROSURGERY [address] | DO [address] | | | | | [address] | [address] [place], [place] | | | | | [place], [place] | [address] | | | | | [address] | | | | | | [phone] | | | +--------+ + + + [...] [place] | | | | | | [address] | | | | | | | | +--------+---------+ + + + documented as of this encounter Visit Diagnoses Not on filedocumented in this encounter"
--- OUTSIDE RECORDS SUMMARY | ~2019-10-22 | XMS | Encounter Summary ---
Demographics + + + | Address | [address] [facility] | | | [place] [address] | + + + | Home Phone [...] [place] | | | | | [address] | | + + + + + Care Team Providers + +------+ + | Care Radio Journalist Name | Role | Phone | + [...] | | | spondylolist | | [address] | | | | | hesis | | [place], | | | | | Spinal | | [place] [address] | | | | | stenosis, | | Phone: | | | | | lumbar | | [phone] | | | | | region, | | Fax: | | | | | without | | [phone] | | | | | neurogenic | [...] | | | | | | | [place] | | | | | | [...] | | | | | | [place] | | | | | | | [...] | | | | | | SEG [place] | | | | | | | [...] | | | | | [address] | [address] [place] | | | | | [place] | [phone] | | | | | [address] | | | | | | [phone] | | | +--------+ + + + [...] +----+---+ + + | | 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
--- OUTSIDE RECORDS SUMMARY | ~2019-10-22 | XMS | Encounter Summary ---
Demographics + + + | Address | [address] [facility] | | | [place] [address] | + + + | Home Phone [...] [place] | | | | | [address] | | + + + + + Care Team Providers + +------+ + | Care Motor Coach Tour Operator Name | Role | Phone | [...] + | 08/20/ | Documentati | [facility] | Katharine Moncada, | Other (urgent | | 2019 | on | CARDIOLOGY [place] | Technologist | report) | | | | [address] | | | | | | [place] | | | | | | [address] | | | | | | [phone] | | | +--------+ + + + [...] [place] | | | | | | [address] | | | | | | | | +--------+---------+ + + + documented as of this encounter Visit Diagnoses Not on filedocumented in this encounter"
--- OUTSIDE RECORDS SUMMARY | ~2019-10-22 | XMS | Encounter Summary ---
Demographics + + + | Address | [address] [facility] | | | [place] [address] | + + + | Home Phone [...] [place], [place] | | | | | [address] | | + + + + + Care Team Providers + +------+ + | Care Lasting Machine Operator Name | Role | Phone | + +------+ + PCP | Unavailable | + +------+ + Encounter Details +--------+ + + + + | Date | Type | Department | Care Team | Description | +--------+ + + + + | 04/01/ | Hospital | [facility] | | | | 1998 | Encounter | MED CTR XRAY [address] | | | | | | [place] | | | | | | [place] [address] | | | | | | [phone] | | | +--------+ + + + [...] | | | | | [place] | | | | | | [address] | | | | | | | | +--------+---------+ + + + documented as of this encounter Visit Diagnoses Not on filedocumented in this encounter"
--- OUTSIDE RECORDS SUMMARY | ~2019-10-22 | XMS | Encounter Summary ---
Demographics + + + | Address | [address] [facility] | | | [place] [address] | + + + | Home Phone [...] [place] | | | | | [address] | | + + + + + Care Team Providers + +------+ + | Care Carpenters Supervisor Name | Role | Phone | [...] + + | 04/05/ | Telephone | [facility] [place] | [facility], | Results | | 2012 | | GASTROENTEROLOGY | [place]O Thomas [address] | | | | | [address] | [place], [address] | | | | | [address] [place], [place] | [place], [place] | | | | | [address] | [address] | | | | | [phone] | | | +--------+ + + + [...] [place] | | | | | | [address] | | | | | | | | +--------+---------+ + + + documented as of this encounter Visit Diagnoses Not on filedocumented in this encounter"
--- OUTSIDE RECORDS SUMMARY | ~2019-10-22 | XMS | Encounter Summary ---
Demographics + + + | Address | [address] [facility] | | | [place] [address] | + + + | Home Phone [...] [place] | | | | | [address] | | + + + + + Care Team Providers + +------+ + | Care Deputy Sheriff Bailiff Name | Role | Phone | + [...] + + | 01/02/ | Telephone | [facility] | Frandy Teresa, | Other (6m x-ray ) | | 2014 | | NEUROSURGERY [address] | DO [address] | | | | | [address] | [address] [place], [place] | | | | | [place], [place] | [phone] | | | | | [address] | | | | | | [phone] | | | +--------+ + + + [...] [place] | | | | | | [address] | | | | | | | | +--------+---------+ + + + documented as of this encounter Visit Diagnoses Not on filedocumented in this encounter"
--- OUTSIDE RECORDS SUMMARY | ~2019-10-22 | XMS | Encounter Summary ---
Demographics + + + | Address | [address] [facility] | | | [place] [address] | + + + | Home Phone [...] [place] | | | | | [address] | | + + + + + Care Team Providers + +------+ + | Care Wash House Worker Name | Role | Phone | [...] + | 02/27/ | Telephone | [facility] | Katharine Cardona PA-C | Appointment (New | | 2014 | | MEDICINE [address] | [address] | Patient) | | | | [address] [place] | [place] [address] | | | | | [place] [address] | [phone] | | | | | [phone] | | | +--------+ + + + [...] [place] | | | | | | [address] | | | | | | | | +--------+---------+ + + + documented as of this encounter Visit Diagnoses Not on filedocumented in this encounter"
--- OUTSIDE RECORDS SUMMARY | ~2019-10-22 | XMS | Encounter Summary ---
Demographics + + + | Address | [address] [facility] | | | [place] [address] | + + + | Home Phone [...] [place], [place] | | | | | [address] | | + + + + + Care Team Providers + +------+ + | Care Exhibit Specialist Name | Role | Phone | + +------+ + PCP | Unavailable | + +------+ + Encounter Details +--------+ + + + + | Date | Type | Department | Care Team | Description | +--------+ + + + + | 12/27/ | Hospital | [facility] | | | | 1997 - | Encounter | MED CTR GENERIC PSY | | | | | | CONV DEPT [address] | | | | 01/01/ | | [place], | | | | 1997 | | [place] [address] | | | | | | [phone] | | | +--------+ + + + [...] [place] | | | | | | [address] | | | | | | | | +--------+---------+ + + + documented as of this encounter Visit Diagnoses Not on filedocumented in this encounter"
--- OUTSIDE RECORDS SUMMARY | ~2019-10-22 | XMS | Encounter Summary ---
Demographics + + + | Address | [address] [facility] | | | [place] [address] | + + + | Home Phone [...] [place] | | | | | [address] | | + + + + + Care Team Providers + +------+ + | Care Medical Doctor Md/Medical Director Name | Role | Phone | [...] + | 07/15/ | Telephone | [facility] | Russell Alfaro PA | Other | | 2016 | | SLEEP DISORDER [address] | [address] | | | | | [address] [place] | [place] [facility] [place] | | | | | [place] [address] | [address] | | | | | [phone] | | | +--------+ + + + [...] [place] | | | | | | [address] | | | | | | | | +--------+---------+ + + + documented as of this encounter Visit Diagnoses Not on filedocumented in this encounter"
--- OUTSIDE RECORDS SUMMARY | ~2019-10-22 | XMS | Encounter Summary ---
Demographics + + + | Address | [address] [facility] | | | [place] [address] | + + + | Home Phone [...] [place] | | | | | [address] | | + + + + + Care Team Providers + +------+ + | Care Vp Research Name | Role | Phone | + +------+ + | Adriano Patrick MD | PCP | | + +------+ + Encounter Details +--------+ + + + + | Date | Type | Department | Care Team | Description | +--------+ + + + + | 05/16/ | Orders Only | [facility] | Provider, | | | 2018 | | SYSTEM GENERIC OP | MD [address] | | | | | CONVERSION [address] | [address] | | | | | [address] [place], [place] | [place] [address] | | | | | [address] | | | | | | [phone] | | | +--------+ + + + [...] | | | | | [place], [place] | | | | | | [address] | | | | | | | | +--------+---------+ + + + documented as of this encounter Visit Diagnoses Not on filedocumented in this encounter"
--- OUTSIDE RECORDS SUMMARY | ~2019-10-22 | XMS | Encounter Summary ---
Demographics + + + | Address | [address] [facility] | | | [place] [address] | + + + | Home Phone [...] [place], [place] | | | | | [address] | | + + + + + Care Team Providers + +------+ + | Care Cvt Rn Name | Role | Phone | + +------+ + PCP | Unavailable | + +------+ + Encounter Details +--------+ + + + + | Date | Type | Department | Care Team | Description | +--------+ + + + + | 02/02/ | Hospital | [facility] | | | | 1997 | Encounter | MED CTR EMERGENCY | | | | | | [address] | | | | | | [place] | | | | | | [address] | | | | | | [phone] | | | +--------+ + + + [...] | | | | | [place] | | | | | | [address] | | | | | | | | +--------+---------+ + + + documented as of this encounter Visit Diagnoses Not on filedocumented in this encounter"
--- OUTSIDE RECORDS SUMMARY | ~2019-10-22 | XMS | Encounter Summary ---
Demographics + + + | Address | [address] [facility] | | | [place] [address] | + + + | Home Phone [...] [place] | | | | | [address] | | + + + + + Care Team Providers + +------+ + | Care Cartography/Mapping Technician Name | Role | Phone | + +------+ + | Basim Bolanos MD | PCP | | + +------+ + Encounter Details +--------+ + + + + | Date | Type | Department | Care Team | Description | +--------+ + + + + | 03/30/ | Hospital | [facility] | Tyrese Neely MD | | | 2012 | Encounter | MED CTR MP INTRA OP | [address], [address] | | | | | [address] | [address] [place], [place] | | | | | [place], [place] | [address] | | | | | [address] | | | | | | [phone] | | | +--------+ + + + [...] + + + +---------+ + + | [place]-3 Fatty | Take 1,000 mg by | [...] [place] | | | | | | [address] | | | | | | | [...] ST. | [address] | [place] | [phone] | | [facility] | | [address] | | | - LABORATORY | | | | + + + + + | [facility] | [address] | [place] | | | [facility] | | [address] | | | - LABORATORY | | [...] ST. | [address] | [place], [place] | [phone] | | [facility] | | [address] | | | - LABORATORY | | | | + + + + + | [facility] | [address] | [place], [place] | | | [facility] | | [address] | | | - LABORATORY | | | | + + + + + documented in this encounter Visit Diagnoses Not on filedocumented in this encounter"
--- OUTSIDE RECORDS SUMMARY | ~2019-10-22 | XMS | Encounter Summary ---
Demographics + + + | Address | [address] [facility] | | | [place] [address] | + + + | Home Phone [...] [place] | | | | | [address] | | + + + + + Care Team Providers + +------+ + | Care Corn Detasseler Name | Role | Phone | + [...] | | | | | | | [address] | | | | | | | Phone: | | | | | | | [phone] | | | | | | | Fax: | | | | | | | [phone] | | +--------+ + + + + + Reason for Visit + + + | Reason | Comments | + + + | Follow-up | 3 mo po | + + + Encounter Details +--------+---------+ + + + | Date | Type | Department | Care Team | Description | +--------+---------+ + + + | 09/27/ | Office | [facility] | Frandy Teresa, | Lumbar spondylosis | | 2013 | Visit | NEUROSURGERY [address] | DO [address] | (Primary Dx); S/P | | | | [address] | [address] [place], [place] | lumbar fusion | | | | [place], [place] | [address] | | | | | [address] | | | | | | [phone] | | | +--------+---------+ + + + [...] m the original. Frandy Teresa DO [address] [facility], [address] [place] [address] FAX: NEUROSURGERY FOLLOW-UP CHIEF COMPLAINT: Chief Complaint [...] Surgeon: Frandy castellanos DO; Location: [facility] CURRENT MEDICATIONS: Current Outpatient [...] Take 15 mg by mouth nightl y. [place]-3 Fatty Acids (FISH OIL CONCENTRATE) [address] [...] | | | | | [place], [place] | | | | | | [address] | | | | | | | [...]
--- OUTSIDE RECORDS SUMMARY | ~2019-10-22 | XMS | Encounter Summary ---
Demographics + + + | Address | [address] [facility] | | | [place] [address] | + + + | Home Phone [...] [place] | | | | | [address] | | + + + + + Care Team Providers + +------+ + | Care Cardiac Nurse Practitioner Name | Role | Phone | + +------+ + | Natalee Andersen NP | PCP | | + +------+ + Encounter Details +--------+ + + + + | Date | Type | Department | Care Team | Description | +--------+ + + + + | 07/25/ | Hospital | [facility] | Frandy Teresa, | Status post lumbar | | 2014 | Encounter | MED CTR XRAY [address] | DO [address] | spinal fusion | | | | [place] | [address] [place], [place] | | | | | [place] [address] | [address] | | | | | [phone] | | | +--------+ + + + [...] + + + +---------+ + + | [place]-3 Fatty | Take 1,000 mg by | [...] [place] | | | | | | [address] | | | | | | | [...] + | MISCELLANEOUS LAB | | | [phone] | + +---------+ + + | MISCELANIOUS LAB | | | [phone] | + +---------+ + + documented in this encounter Visit Diagnoses + + | Diagnosis | + + | Status post lumbar spinal fusion Arthrodesis status | + + documented in this encounter"
--- OUTSIDE RECORDS SUMMARY | ~2019-10-22 | XMS | Encounter Summary ---
Demographics + + + | Address | [address] [facility] [address] | | | [place] [address] | + + + | Home Phone [...] [place], [place] | | | | | [address] | | + + + + + Care Team Providers + +------+ + | Care Cae Engineer Name | Role | Phone | + +------+ + PCP | Unavailable | + +------+ + Encounter Details +--------+ + + + + | Date | Type | Department | Care Team | Description | +--------+ + + + + | 01/06/ | Hospital | [facility] | | | | 1992 | Encounter | [facility] | | | | | | [address] | | | | | | [place] | | | | | | [address] | | | | | | [phone] | | | +--------+ + + + [...] | | | | | [place] | | | | | | [address] | | | | | | | | +--------+---------+ + + + documented as of this encounter Visit Diagnoses Not on filedocumented in this encounter"
--- OUTSIDE RECORDS SUMMARY | ~2019-10-22 | XMS | Encounter Summary ---
Demographics + + + | Address | [address] [facility] [address] | | | [place] [address] | + + + | Home Phone [...] [place], [place] | | | | | [address] | | + + + + + Care Team Providers + +------+ + | Care Glass Mould Cleaner Name | Role | Phone | + +------+ + PCP | Unavailable | + +------+ + Encounter Details +--------+ + + + + | Date | Type | Department | Care Team | Description | +--------+ + + + + | 02/02/ | Hospital | [facility] | | | | 1997 - | Encounter | MED CTR GENERIC PSY | | | | | | CONV DEPT [address] | | | | 02/05/ | | [place], | | | | 1997 | | [place] [address] | | | | | | [phone] | | | +--------+ + + + [...] [place] | | | | | | [address] | | | | | | | | +--------+---------+ + + + documented as of this encounter Visit Diagnoses Not on filedocumented in this encounter"
--- OUTSIDE RECORDS SUMMARY | ~2019-10-22 | XMS | Encounter Summary ---
Demographics + + + | Address | [address] [facility] | | | [place] [address] | + + + | Home Phone [...] [place] | | | | | [address] | | + + + + + Care Team Providers + +------+ + | Care Wine Pasteurizer Name | Role | Phone | + [...] + + | 08/20/ | Documentati | [facility] | Katharine Moncada, | Other (urgent | | 2019 | on | CARDIOLOGY [place] | Technologist | report) | | | | [address] | | | | | | [place] | | | | | | [address] | | | | | | [phone] | | | +--------+ + + + [...] [place] | | | | | | [address] | | | | | | | | +--------+---------+ + + + documented as of this encounter Visit Diagnoses Not on filedocumented in this encounter"
--- OUTSIDE RECORDS SUMMARY | ~2019-10-22 | XMS | Encounter Summary ---
Demographics + + + | Address | [address] [facility] | | | [place] [address] | + + + | Home Phone [...] [place] | | | | | [address] | | + + + + + Care Team Providers + +------+ + | Care Correctional Officer Name | Role | Phone | + +------+ + | Adriano Patrick MD | PCP | | + +------+ + Encounter Details +--------+ + + + + | Date | Type | Department | Care Team | Description | +--------+ + + + + | 06/10/ | Abstract | [facility] | Thierry Fry | | | 2014 | | MEDICINE [address] | MD Lisa [address] | | | | | [address] [place] | [address] | | | | | [place] [address] | [id number] | | | | | [phone] | | | +--------+ + + + [...] [address] | | | | | | [place] | | | | | | [address] | | | | | | | [...]
--- OUTSIDE RECORDS SUMMARY | ~2019-10-22 | XMS | Encounter Summary ---
Demographics + + + | Address | [address] [facility] | | | [place] [address] | + + + | Home Phone [...] [place] | | | | | [address] | | + + + + + Care Team Providers + +------+ + | Care Bull Gang Supervisor Name | Role | Phone | [...] + + | 10/04/ | Office | [facility] | Desiree Peterson DO | ROGERS on CPAP (Primary | | 2019 | Visit | CARDIOLOGY [place] | [address] | Dx); Morbid obesity | | | | [address] | [place], [place] | (HCC); Benign | | | | [address] | [address] | essential HTN; | | | | [place], [place] | | Atrial fibrillation, | | | | [address] | | unspecified type | | | | [phone] | | ([facility]) | +--------+---------+ + + + Social History [...] Peterson DO - 10/04/2019 11:[address] [facility] Cardiology Cardiology Follow [...] rtake in exercise. She recently got a ChiFansUniteua and has been walking him more regularly. [...] by mouth daily. Blood Glucose Monitoring Suppl (SoundOutIO FLEX SYSTEM) w/Device KIT by Does not ap ply route. budesonide-formoterol (SYMBICORT) 160-4.5 MCG/ACT inhaler Inhale 2 puffs into the lungs 2 (two) times daily. Calcium Carbonate Antacid 1000 MG tablet Take 1,000 mg by mouth 3 (three) times daily. Cholecalciferol (VITAMIN D3) 13997 units CAPS Take by mouth once a [...] [place] | | | | | | [phone] | | | | | | | [...]
--- OUTSIDE RECORDS SUMMARY | ~2019-10-22 | XMS | Encounter Summary ---
Demographics + + + | Address | [address] [facility] | | | [place] [address] | + + + | Home Phone [...] [place] | | | | | [address] | | + + + + + Care Team Providers + +------+ + | Care Scada Engineer Name | Role | Phone | [...] + + | 10/22/ | Telephone | [facility] | Susu Peralta, | Other | | 2019 | | CARDIOLOGY [place] | DMITRIY | | | | | [address] | | | | | | [place], [place] | | | | | | [address] | | | | | | [phone] | | | +--------+ + + + [...] | | | | | [place] | | | | | | [address] | | | | | | | | +--------+---------+ + + + documented as of this encounter Visit Diagnoses Not on filedocumented in this encounter"
--- OUTSIDE RECORDS SUMMARY | ~2019-10-22 | XMS | Encounter Summary ---
Demographics + + + | Address | [address] [facility] | | | [place] [address] | + + + | Home Phone [...] [place] | | | | | [address] | | + + + + + Care Team Providers + +------+ + | Care Ux Developer Designer Name | Role | Phone | [...] [place] | | | | | | [address] | | | | | | [phone] | | | +--------+ + + + [...] [place] | | | | | | [address] | | | | | | | | +--------+---------+ + + + documented as of this encounter Visit Diagnoses Not on filedocumented in this encounter"
--- OUTSIDE RECORDS SUMMARY | ~2019-10-22 | XMS | Encounter Summary ---
Demographics + + + | Address | [address] [facility] | | | [place] [address] | + + + | Home Phone [...] [place] | | | | | [address] | | + + + + + Care Team Providers + +------+ + | Care Refractory Bricklayer Name | Role | Phone | [...] + | 06/20/ | Telephone | [facility] | Frandy Teresa, | Other (surgery | | 2013 | | NEUROSURGERY [address] | DO [address] | reminder ) | | | | [address] | [address] [place], [place] | | | | | [place], [place] | [address] | | | | | [address] | | | | | | [phone] | | | +--------+ + + + [...] | | | | | [place] | | | | | | [address] | | | | | | | | +--------+---------+ + + + documented as of this encounter Visit Diagnoses Not on filedocumented in this encounter"
--- OUTSIDE RECORDS SUMMARY | ~2019-10-22 | XMS | Encounter Summary ---
Demographics + + + | Address | [address] [facility] | | | [place] [address] | + + + | Home Phone [...] [place], [place] | | | | | [address] | | + + + + + Care Team Providers + +------+ + | Care Orientation And Mobility Specialist Name | Role | Phone | + +------+ + PCP | Unavailable | + +------+ + Encounter Details +--------+ + + + + | Date | Type | Department | Care Team | Description | +--------+ + + + + | 03/11/ | [facility] | [facility] | Deon Gonzales | | | 2005 | Encounter | MED CTR SLEEP | MD Laure[address] | | | | | [place] [address] | [address] | | | | | [place], [place] | [place] [address] | | | | | [address] | [phone] | | | | | [phone] | | | +--------+ + + + [...] [place] | | | | | | [address] | | | | | | | | +--------+---------+ + + + documented as of this encounter Visit Diagnoses Not on filedocumented in this encounter"
--- OUTSIDE RECORDS SUMMARY | ~2019-10-22 | XMS | Encounter Summary ---
Demographics + + + | Address | [address] [facility] | | | [place] [address] | + + + | Home Phone [...] [place] | | | | | [address] | | + + + + + Care Team Providers + +------+ + | Care Assistant Teacher Primary Name | Role | Phone | + [...] [place] | | | | | | [address] | | | | | | [phone] | | | +--------+ + + + [...] [place] | | | | | | [address] | | | | | | | | +--------+---------+ + + + documented as of this encounter Visit Diagnoses Not on filedocumented in this encounter"
--- OUTSIDE RECORDS SUMMARY | ~2019-10-22 | XMS | Encounter Summary ---
Demographics + + + | Address | [address] [facility] | | | [place] [address] | + + + | Home Phone [...] [place] | | | | | [address] | | + + + + + Care Team Providers + +------+ + | Care Boiler Water Tester Name | Role | Phone | [...] [place] | | | | | | [address] | | | | | | [phone] | | | +--------+ + + + [...] [place] | | | | | | [address] | | | | | | | | +--------+---------+ + + + documented as of this encounter Visit Diagnoses Not on filedocumented in this encounter"
--- OUTSIDE RECORDS SUMMARY | ~2019-10-22 | XMS | Encounter Summary ---
Demographics + + + | Address | [address] [facility] | | | [place] [address] | + + + | Home Phone [...] [place] | | | | | [address] | | + + + + + [...] + | 11/25/ | Telephone | [facility] | Frandy Teresa, | Medication Refill | | 2015 | | NEUROSURGERY [address] | DO [address] | Assistance | | | | [address] | [address] [place], [place] | | | | | [place], [place] | [address] | | | | | [address] | | | | | | [phone] | | | +--------+ + + + [...] | | | | [place] | | | | | | [address] | | | | | | | | +--------+---------+ + + + documented as of this encounter Visit Diagnoses Not on filedocumented in this encounter"
--- OUTSIDE RECORDS SUMMARY | ~2019-10-22 | XMS | Encounter Summary ---
Demographics + + + | Address | [address] [facility] | | | [place] [address] | + + + | Home Phone [...] [place] | | | | | [address] | | + + + + + Care Team Providers + +------+ + | Care Crop Farm Helper Name | Role | Phone | [...] [address] | [address] [place], [place] | fusion | | | | [place], [place] | [address] | | | | | [address] | | | | | | [phone] | | | +--------+ + + + [...] [place] | | | | | | [address] | | | | | | | | +--------+---------+ + + + documented as of this encounter Visit Diagnoses + + | Diagnosis | + + | Lumbago - Primary | + + | S/P lumbar fusion Arthrodesis status | + + documented in this encounter"
--- OUTSIDE RECORDS SUMMARY | ~2019-10-22 | XMS | Encounter Summary ---
Demographics + + + | Address | [address] [facility] [address] [facility] | | | [place] [address] | + + + | Home Phone [...] [place] | | | | | [address] | | + + + + + Care Team Providers + +------+ + | Care Fisher Diving Name | Role | Phone | + [...] + + | 07/10/ | Telephone | [facility] | Frandy Teresa, | Imaging Only (1 year | | 2014 | | NEUROSURGERY [address] | DO [address] | x-ray ) | | | | [address] | [address] [place], [place] | | | | | [place], [place] | [id number] | | | | | [address] | | | | | | [phone] | | | +--------+ + + + [...] [place] | | | | | | [address] | | | | | | | | +--------+---------+ + + + documented as of this encounter Visit Diagnoses Not on filedocumented in this encounter"
--- OUTSIDE RECORDS SUMMARY | ~2019-10-22 | XMS | Encounter Summary ---
Demographics + + + | Address | [address] [facility] | | | [place] [address] | + + + | Home Phone [...] [place], [place] | | | | | [address] | | + + + + + Care Team Providers + +------+ + | Care Bumboater Name | Role | Phone | + +------+ + PCP | Unavailable | + +------+ + Encounter Details +--------+ + + + + | Date | Type | Department | Care Team | Description | +--------+ + + + + | 06/30/ | Hospital | [facility] | | | | 1999 - | Encounter | MED CTR GENERIC PSY | | | | | | CONV DEPT [address] | | | | 07/05/ | | [place], | | | | 1999 | | [place] [address] | | | | | | [phone] | | | +--------+ + + + [...] [place] | | | | | | [address] | | | | | | | | +--------+---------+ + + + documented as of this encounter Visit Diagnoses Not on filedocumented in this encounter"
--- OUTSIDE RECORDS SUMMARY | ~2019-10-22 | XMS | Encounter Summary ---
Demographics + + + | Address | [address] [facility] | | | [place] [address] | + + + | Home Phone [...] [place] | | | | | [address] | | + + + + + Care Team Providers + +------+ + | Care Wood Floor Layer Name | Role | Phone | [...] + + | 08/14/ | Telephone | [facility] | Ashley Chávez | Other (Patient was | | 2019 | | CARDIOLOGY [place] Abad, Machine Stripper | anxious about urgent | | | | [address] | | reports. ) | | | | [place] | | | | | | [address] | | | | | | [phone] | | | +--------+ + + + [...] [place] | | | | | | [address] | | | | | | | | +--------+---------+ + + + documented as of this encounter Visit Diagnoses Not on filedocumented in this encounter"
--- OUTSIDE RECORDS SUMMARY | ~2019-10-22 | XMS | Encounter Summary ---
Demographics + + + | Address | [address] [facility] | | | [place] [address] | + + + | Home Phone [...] [place] | | | | | [address] | | + + + + + Care Team Providers + +------+ + | Care Auto Air Conditioning Installer Name | Role | Phone | + +------+ + | Natalee Andersen NP | PCP | | + +------+ + Encounter Details +--------+ + + + + | Date | Type | Department | Care Team | Description | +--------+ + + + + | 07/25/ | Hospital | [facility] | Frandy Teresa, | Status post lumbar | | 2014 | Encounter | MED CTR XRAY [address] | DO [address] | spinal fusion | | | | [place] | [address] [place], [place] | | | | | [place] [address] | [address] | | | | | [phone] | | | +--------+ + + + [...] + + + +---------+ + + | Luverne-3 Fatty | Take 1,000 mg by | [...] [place] | | | | | | [address] | | | | | | | [...] + | MISCELLANEOUS LAB | | | [phone] | + +---------+ + + | MISCELANIOUS LAB | | | [phone] | + +---------+ + + documented in this encounter Visit Diagnoses + + | Diagnosis | + + | Status post lumbar spinal fusion Arthrodesis status | + + documented in this encounter"
--- OUTSIDE RECORDS SUMMARY | ~2019-10-22 | XMS | Encounter Summary ---
Demographics + + + | Address | [address] [facility] | | | [place] [address] | + + + | Home Phone [...] [place] | | | | | [address] | | + + + + + Care Team Providers + +------+ + | Care Data Reviewer Name | Role | Phone | [...] | | | spondylolist | | [address] | | | | | hesis | | [place], | | | | | Spinal | | [place] [address] | | | | | stenosis, | | Phone: | | | | | lumbar | | [phone] | | | | | region, | | Fax: | | | | | without | | [phone] | | | | | neurogenic | [...] + | 07/02/ | Hospital | [facility] | Frandy Teresa, | Degenerative disc | | 2013 - | Encounter | MED CTR SURGICAL | DO [address] | disease, lumbar | | | | [address] | [address] [place] | (Primary Dx); | | 07/05/ | | [place] [address] | [id number] | Diabetes mellitus | | 2013 | | [phone] | | ([facility]); Disturbance | | | | [...] might be different fro m the original. [facility] DISCHARGE SUMMARY PATIENT NAME: Cindy [...] Take 15 mg by mouth nightl y. Edge[place]-3 Fatty Acids (FISH OIL CONCENTRATE) 1000 MG [...] + + + +---------+ + + | Edgewater-3 Fatty | Take 1,000 mg by | [...] prophylaxis -DC plan: SNF versus home with [facility] any time. Maria T Storm RN - 07/04/2014 6:56 PM PDTFoley cath dc'd and MARI drain dc'd no problems. Chris Lynn PA-C - 07/04/2014 7:43 AM PDT [facility] PROGRESS NOTE Pt. Name/Age/: Cindy Arndt 58 y.o. 1955 Med. Record Number: [id number] Date of admission: 07/02/2014 Subjective: The patient [...] home medications. D/C plan: Home tomorrow with [facility]. D/c mari drain and riley cath today. 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 Patient Active Problem List Diagnosis LUMBAR [...] by: Chris Nicole, 07/04/2014 7:45 [facility] Chris Lynn PA-C - 07/03/2014 7:13 AM PDT . [facility] PROGRESS NOTE Pt. Name/Age/: Cindy Arndt 58 y.o. 1955 Med. Record Number: [id number] Date of admission: 07/02/2014 Subjective: The patient [...] Electronically signed by: Chris Nicole, 07/03/2014 7:13 [facility] Ton Menjivar, KRIS - 07/03/2014 6:50 [...] [place] | | | | | | [address] | | | | | | | [...] + | [facility] | [address] | [place], [place] | [phone] | | [facility] | | [address] | | | - LABORATORY | | | | + + + + + | [facility] | [address] | [place], [place] | | | [facility] | | [address] | | | - LABORATORY | | [...] + | [facility] | [address] | [place] | [phone] | | [facility] | | [address] | | | - LABORATORY | | | | + + + + + | [facility] | [address] | [place] | | | [facility] | | [address] | | | - LABORATORY | | [...] + | [facility] | [address] | [place] | [phone] | | [facility] | | [address] | | | - LABORATORY | | | | + + + + + | [facility] | [address] | [place] | | | [facility] | | [address] | | | - LABORATORY | | [...] + | [facility] | [address] | [place], [place] | [phone] | | [facility] | | [address] | | | - LABORATORY | | | | + + + + + | [facility] | [address] | [place], [place] | | | [facility] | | [address] | | | - LABORATORY | | [...] + | [facility] | [address] | [place] | [phone] | | [facility] | | [address] | | | - LABORATORY | | | | + + + + + | [facility] | [address] | [place] | | | [facility] | | [address] | | | - LABORATORY | | [...] + | [facility] | [address] | [place] | [phone] | | [facility] | | [address] | | | - LABORATORY | | | | + + + + + | [facility] | [address] | [place] | | | [facility] | | [address] | | | - LABORATORY | | [...] [address] | [place] | [phone] | | [facility] | | [address] | | | - LABORATORY | | | | + + + + + | [facility] | [address] | [place] | | | [facility] | | [address] | | | - LABORATORY | | [...] + | [facility] | [address] | [place], [place] | [phone] | | [facility] | | [address] | | | - LABORATORY | | | | + + + + + | [facility] | [address] | [place], [place] | | | [facility] | | [address] | | | - LABORATORY | | [...] [address] | [place] | [phone] | | [facility] | | [address] | | | - LABORATORY | | | | + + + + + | [facility] | [address] | [place], [place] | | | [facility] | | [address] | | | - LABORATORY | | [...] | of hardware for posterior fusion from L4zxjfhyu S1 with interbody hardware at L5-S1. The [...] + | MISCELLANEOUS LAB | | | [phone] | + +---------+ + + | MISCELANIOUS LAB | | | [phone] | + +---------+ + + POC Glucose [...] + | [facility] | [address] | [place], [place] | [phone] | | [facility] | | [address] | | | - LABORATORY | | | | + + + + + | [facility] | [address] | [place], [place] | | | [facility] | | [address] | | | - LABORATORY | | [...] + | [facility] | [address] | [place] | [phone] | | [facility] | | [address] | | | - LABORATORY | | | | + + + + + | [facility] | [address] | [place] | | | [facility] | | [address] | | | - LABORATORY | | [...] | | | POC | | | [facility] | | | | | [...] + | [facility] | [address] | [place] | [phone] | | [facility] | | [address] | | | - LABORATORY | | | | + + + + + | [facility] | [address] | [place] | | | [facility] | | [address] | | | - LABORATORY | | [...] + | [facility] | [address] | [place], [place] | [phone] | | [facility] | | [address] | | | - LABORATORY | | | | + + + + + | [facility] | [address] | [place] | | | [facility] | | [address] | | | - LABORATORY | | [...] + | [facility] | [address] | [place] | [phone] | | [facility] | | [address] | | | - LABORATORY | | | | + + + + + | [facility] | [address] | [place] | | | [facility] | | [address] | | | - LABORATORY | | [...] | [facility] | | [address] | | | - BLOOD BANK | [...] + +---------+ +---+---+---+ | morphine 5 mg/mL MATHEMATICS ACADEMIC CHAIR syringe | New Bag | 07/02/20 | [...] | | | | Dose(mg): 0, Starting [employer]HE[employer]ICS ACADEMIC CHAIR | | | | | | | Dose(mg): 1, Incremental Increase | | | | | | | MATHEMATICS ACADEMIC CHAIR Dose(mg): 0.5, Maximum MATHEMATICS ACADEMIC CHAIR | | | | | | | [...]
--- OUTSIDE RECORDS SUMMARY | ~2019-10-22 | XMS | Encounter Summary ---
Demographics + + + | Address | [address] [facility] | | | [place] [address] | + + + | Home Phone [...] [place] | | | | | [address] | | + + + + + Care Team Providers + +------+ + | Care Marketing Effectiveness Manager Name | Role | Phone | + +------+ + | Natalee Andersen NP | PCP | | + +------+ + Encounter Details +--------+ + + + + | Date | Type | Department | Care Team | Description | +--------+ + + + + | 09/27/ | Hospital | [facility] | Frandy Teresa, | Lumbar spondylosis; | | 2013 | Encounter | MED CTR XRAY [address] | DO [address] | S/P lumbar fusion | | | | [place] | [address] [place], [place] | | | | | [place] [address] | [address] | | | | | [phone] | | | +--------+ + + + [...] + + + +---------+ + + | M[place]heimer-3 Fatty | Take 1,000 mg by | [...] [place] | | | | | | [address] | | | | | | | [...] + | MISCELLANEOUS LAB | | | [phone] | + +---------+ + + | MISCELANIOUS LAB | | | [phone] | + +---------+ + + documented in this encounter Visit Diagnoses + + | Diagnosis | + + | Lumbar spondylosis Lumbosacral spondylosis without myelopathy | + + | S/P lumbar fusion Arthrodesis status | + + documented in this encounter"
--- OUTSIDE RECORDS SUMMARY | ~2019-10-22 | XMS | Encounter Summary ---
Demographics + + + | Address | [address] [facility] | | | [place] [address] | + + + | Home Phone [...] [place] | | | | | [address] | | + + + + + Care Team Providers + +------+ + | Care Electronic Transaction Implementer Name | Role | Phone | + [...] + + | 08/20/ | Documentati | [facility] | Katharine Moncada, | Other (urgent | | 2019 | on | CARDIOLOGY [place] | Technologist | report) | | | | [address] | | | | | | [place] | | | | | | [address] | | | | | | [phone] | | | +--------+ + + + [...] [place] | | | | | | [address] | | | | | | | | +--------+---------+ + + + documented as of this encounter Visit Diagnoses Not on filedocumented in this encounter"
--- OUTSIDE RECORDS SUMMARY | ~2019-10-22 | XMS | Encounter Summary ---
Demographics + + + | Address | [address] [facility] | | | [place] [address] | + + + | Home Phone [...] [place] | | | | | [address] | | + + + + + Care Team Providers + +------+ + | Care Clinical Editor Name | Role | Phone | [...] + + | 08/28/ | Telephone | [facility] | Ashley Chávez | Other (Patient has | | 2019 | | CARDIOLOGY GENESIS Abad, [employer] Accountant | questions about | | | | [address] | | monitor. ) | | | | [place] | | | | | | [address] | | | | | | [phone] | | | +--------+ + + + [...] [place] | | | | | | [address] | | | | | | | | +--------+---------+ + + + documented as of this encounter Visit Diagnoses Not on filedocumented in this encounter"
--- OUTSIDE RECORDS SUMMARY | ~2019-10-22 | XMS | Encounter Summary ---
Demographics + + + | Address | [address] [facility] [address] | | | [place] [address] | + + + | Home Phone [...] [place] | | | | | [address] | | + + + + + Care Team Providers + +------+ + | Care Scoreboard Operator Name | Role | Phone | [...] [place] | | | | | | [id number] | | | | | | [phone] | | | +--------+ + + + [...] [place] | | | | | | [id number] | | | | | | | | +--------+---------+ + + + documented as of this encounter Visit Diagnoses Not on filedocumented in this encounter"
--- OUTSIDE RECORDS SUMMARY | ~2019-10-22 | XMS | Encounter Summary ---
Demographics + + + | Address | [address] [facility] | | | [place] [address] | + + + | Home Phone [...] [place] | | | | | [address] | | + + + + + Care Team Providers + +------+ + | Care Manager Transmission Name | Role | Phone | + [...] + + | 08/13/ | Documentati | [facility] | Katharine Moncada, | Other (urgent | | 2019 | on | CARDIOLOGY [place] | Technologist | report) | | | | [address] | | | | | | [place] | | | | | | [address] | | | | | | [phone] | | | +--------+ + + + [...]
--- OUTSIDE RECORDS SUMMARY | ~2019-10-22 | XMS | Encounter Summary ---
Demographics + + + | Address | [address] [facility] [address] [facility] | | | [place] [address] | + + + | Home Phone [...] [place] | | | | | [address] | | + + + + + Care Team Providers + +------+ + | Care Repair Technician Name | Role | Phone [...] SLEEP DISORDER 401 | [address] | | | | | [address] [place] | [place], [place] | | | | | [place] [address] | [address] | | | | | [phone] | | | +--------+ + + + [...] | | | | | [place] | | | | | | [address] | | | | | | | | +--------+---------+ + + + documented as of this encounter Visit Diagnoses Not on filedocumented in this encounter"
--- OUTSIDE RECORDS SUMMARY | ~2019-10-22 | XMS | Encounter Summary ---
Demographics + + + | Address | [address] [facility] | | | [place] [address] | + + + | Home Phone [...] [place] | | | | | [address] | | + + + + + Care Team Providers + +------+ + | Care Assigner Name | Role | Phone | + [...] + | 02/27/ | Telephone | [facility] | Katharine Cardona PA-C | Appointment (New | | 2014 | | MEDICINE [address] | [address] | Patient) | | | | [address] [place] | [place] [address] | | | | | [place] [address] | [phone] | | | | | [phone] | | | +--------+ + + + [...] [place] | | | | | | [address] | | | | | | | | +--------+---------+ + + + documented as of this encounter Visit Diagnoses Not on filedocumented in this encounter"
--- OUTSIDE RECORDS SUMMARY | ~2019-10-22 | XMS | Encounter Summary ---
Demographics + + + | Address | [address] [address] [facility] | | | [place] [address] | + + + | Home Phone [...] [place] | | | | | [address] | | + + + + + Care Team Providers + +------+ + | Care Bsa/Aml Compliance Officer Name | Role | Phone | [...] + + | 08/20/ | Documentati | [facility] | Katharine Moncada, | Other (urgent | | 2019 | on | CARDIOLOGY [place] | Technologist | report) | | | | [address] | | | | | | [place] | | | | | | [address] | | | | | | [phone] | | | +--------+ + + + [...] [place] | | | | | | [address] | | | | | | | | +--------+---------+ + + + documented as of this encounter Visit Diagnoses Not on filedocumented in this encounter"
--- OUTSIDE RECORDS SUMMARY | ~2019-10-22 | XMS | Encounter Summary ---
Demographics + + + | Address | [address] [facility] [address] [facility] | | | [place] [address] | + + + | Home Phone [...] [place] | | | | | [address] | | + + + + + Care Team Providers + +------+ + | Care Card Cutter Name | Role | Phone | [...] [place] | | | | | | [address] | | | | | | [phone] | | | +--------+ + + + [...] [place] | | | | | | [address] | | | | | | | | +--------+---------+ + + + documented as of this encounter Visit Diagnoses Not on filedocumented in this encounter"
--- OUTSIDE RECORDS SUMMARY | ~2019-10-22 | XMS | Encounter Summary ---
Demographics + + + | Address | [address] [facility] | | | [place] [address] | + + + | Home Phone [...] [place] | | | | | [address] | | + + + + + Care Team Providers + +------+ + | Care Package Liner Name | Role | Phone | + [...] | 06/12/ | Office | [facility] | Chris Nciole, | Spondylisthesis | | 2013 | Visit | NEUROSURGERY [address] | PA-C [address] | (Primary Dx); | | | | [address] | [place], [place] | Radiculopathy of | | | | [place], [place] | [address] | leg; Lumbar spine | | | | [address] | | instability; Lumbar | | | | [phone] | | spondylosis; | | | | [...] this encounter Patient Instructions Patient Instructions Alli Crzu PA - 06/12/2014 2:59 PM PDTPlease don't [...] the original. ZANE Castillo [address] [facility] [place] [address] FAX: NEUROSURGERY HISTORY AND PHYSICAL [...] Take 15 mg by mouth nightl y. [place]-3 Fatty Acids (FISH OIL CONCENTRATE) 1000 MG [...] Intrinsics 5 5 Ulnar Intrinsics 5 5 Filenet Developer Strength 5 5 Hip Flexion 5 4* [...] [place] | | | | | | [address] | | | | | | | [...]
--- OUTSIDE RECORDS SUMMARY | ~2019-10-22 | XMS | Encounter Summary ---
Demographics + + + | Address | [address] [facility] | | | [place] [address] | + + + | Home Phone [...] [place] | | | | | [address] | | + + + + + Care Team Providers + +------+ + | Care Galley Stripper Name | Role | Phone | [...] [place] | | | | | | [address] | | | | | | [phone] | | | +--------+ + + + [...] [place] | | | | | | [address] | | | | | | | | +--------+---------+ + + + documented as of this encounter Visit Diagnoses Not on filedocumented in this encounter"
--- OUTSIDE RECORDS SUMMARY | ~2019-10-22 | XMS | Encounter Summary ---
Demographics + + + | Address | [address] [facility] [address] [facility] | | | [place] [address] | + + + | Home Phone [...] [place] | | | | | [address] | | + + + + + Care Team Providers + +------+ + | Care Ornamental Metalwork Designer Name | Role | Phone | [...] [address] | [address] [place], [place] | fusion | | | | [place], [place] | [address] | | | | | [address] | | | | | | [phone] | | | +--------+ + + + [...] [place] | | | | | | [address] | | | | | | | | +--------+---------+ + + + documented as of this encounter Visit Diagnoses + + | Diagnosis | + + | Lumbago - Primary | + + | S/P lumbar fusion Arthrodesis status | + + documented in this encounter"
--- OUTSIDE RECORDS SUMMARY | ~2019-10-22 | XMS | Encounter Summary ---
Demographics + + + | Address | [address] [facility] | | | [place] [address] | + + + | Home Phone [...] [place] | | | | | [address] | | + + + + + Care Team Providers + +------+ + | Care Heel Cutter Name | Role | Phone | [...] | | | | | Procedures | [address] | [address] | | | | | [place] OFFICE | | [address] | | | | | CONSULTATION | [address] | [place] | | | | | NEW/ESTAB | [facility], | [address] Phone: | | | | | PATIENT 60 | [place] [address] | [phone] | | | | | MIN | Phone: | Fax: | | | | | | [phone] | [phone] | | | | | | Fax: | | | | | | | [phone] | | +--------+--------+ + + + + Encounter Details +--------+---------+ + + + | Date | Type | Department | Care Team | Description | +--------+---------+ + + + | 05/02/ | Office | [facility] | Frandy Teresa, | Spondylolisthesis of | | 2013 | Visit | NEUROSURGERY [address] | DO [address] | lumbar region | | | | [address] | [address] [place], [place] | (Primary Dx); Lumbar | | | | [place], [place] | [id number] | stenosis; Lumbar | | | | [address] | | radicular pain; | | | | [phone] | | Lumbago | +--------+---------+ + + [...] [facility] [address] [place] [address] FAX: NEUROSURGERY HISTORY AND PHYSICAL EXAMINATION CHIEF [...] Take 15 mg by mouth nightl y. [place]-3 Fatty Acids (FISH OIL CONCENTRATE) 1000 MG [...] Intrinsics 5 5 Ulnar Intrinsics 5 5 Luggage Liner Strength 5 5 Hip Flexion 5 4* [...] | | | | [place] | | | | | | [address] | | | | | | | [...]
--- OUTSIDE RECORDS SUMMARY | ~2019-10-22 | XMS | Encounter Summary ---
Demographics + + + | Address | [address] [facility] | | | [place] [address] | + + + | Home Phone [...] [place] | | | | | [address] | | + + + + + Care Team Providers + +------+ + | Care Clerk Analyst Name | Role | Phone | [...] + + | 07/08/ | Telephone | [facility] | Frandy Teresa, | Other (post op call | | 2013 | | NEUROSURGERY [address] | DO [address] | ) | | | | [address] | [address] [place], [place] | | | | | [place], [place] | [address] | | | | | [address] | | | | | | [phone] | | | +--------+ + + + [...] | | | | | [place] | | | | | | [address] | | | | | | | | +--------+---------+ + + + documented as of this encounter Visit Diagnoses Not on filedocumented in this encounter"
--- OUTSIDE RECORDS SUMMARY | ~2019-10-22 | XMS | Encounter Summary ---
Demographics + + + | Address | [address] [facility] | | | [place] [address] | + + + | Home Phone [...] [place], [place] | | | | | [address] | | + + + + + Care Team Providers + +------+ + | Care Edging Catcher Name | Role | Phone | + +------+ + PCP | Unavailable | + +------+ + Encounter Details +--------+ + + + + | Date | Type | Department | Care Team | Description | +--------+ + + + + | 09/23/ | Hospital | [facility] | | | | 1994 | Encounter | MED CTR LABORATORY | | | | | | [address] | | | | | | [place] | | | | | | [address] | | | | | | [phone] | | | +--------+ + + + [...] | | | | | [place] | | | | | | [address] | | | | | | | | +--------+---------+ + + + documented as of this encounter Visit Diagnoses Not on filedocumented in this encounter"
--- OUTSIDE RECORDS SUMMARY | ~2019-10-22 | XMS | Encounter Summary ---
Demographics + + + | Address | [address] [facility] [address] [facility] | | | [place] [address] | + + + | Home Phone [...] [place], [place] | | | | | [address] | | + + + + + Care Team Providers + +------+ + | Care Global Marketing Specialist Name | Role | Phone | + +------+ + PCP | Unavailable | + +------+ + Encounter Details +--------+ + + + + | Date | Type | Department | Care Team | Description | +--------+ + + + + | 03/13/ | Hospital | [facility] | | | | 1996 - | Encounter | MED CTR GENERIC OP | | | | | | CONV DEPT [address] | | | | 03/21/ | | [address], | | | | 1996 | | [place] [address] | | | | | | [phone] | | | +--------+ + + + [...] [place] | | | | | | [address] | | | | | | | | +--------+---------+ + + + documented as of this encounter Visit Diagnoses Not on filedocumented in this encounter"
--- OUTSIDE RECORDS SUMMARY | ~2019-10-22 | XMS | Encounter Summary ---
Demographics + + + | Address | [address] [address] [facility] [address] [facility] | | | [place] [address] | + + + | Home Phone [...] [place] | | | | | [address] | | + + + + + Care Team Providers + +------+ + | Care Customer Contact Sales Associate Name | Role | Phone [...] | | | | | mellitus, | [address] | [place] | | | | | controlled | Phone: | [address] | | | | | (HCC) | [phone] | Phone: | | | | | History of | Fax: | [phone] | | | | | gastric | [phone] | Fax: | | | | | restrictive | | [phone] | | | | | surgery | [...] | Required | | hypertension | [address] [facility] | | | | | Lumbar | AVE [place] | [address] | | | | | radiculopath | [place], [place] | AVE | | | | | y Type 2 | [address] | [place] | | | | | diabetes | Phone: | [address] | | | | | mellitus, | [phone] | Phone: | | | | | controlled | Fax: | [phone] | | | | | (HCC) | [phone] | Fax: | | | | | Obesity, | | [phone] | | | | | Class III, [...] | | [facility] & Katharine BUCIO in [place]. | + + + | Other | [...] 03/06/ | Office | [facility] | Katharine Cardona PA-C | Hypothyroidism due | | 2014 | Visit | MEDICINE [address] | [address] [facility] | to acquired atrophy | | | | Street [place] | [place] [address] | of thyroid (Primary | | | | [place] [address] | [phone] | Dx); Essential | | | | [phone] | | hypertension; Iron | | | [...] Stroke | | | | | | ([facility]); Environmental | | | | [...] | | | | | | obesity) ([facility]); | | | | | | Type 2 diabetes | | | | | | mellitus, controlled | | | | | | ([facility]); Preventative | | | | [...] t be different from the original. Ask [facility] if they think it might be helpful [...] Cont your meds as prescribed. F/U with [facility] as scheduled Neuropathy Continue gabapentin. May consider increase if pain is not controlled. May benefit from switching from Paxil to one of the SNRIs or TCAs for analgesic effects, holly manju, she is doing so well on her current regimen it may not be worth making any changes an d find alternate ways to deal with the pain. Would be worth discussing with [facility] Psych Back Pain Will refer to water therapy (aqua fitness) at [facility] as request ed. [...] Colonoscopy procedures 4. Schizoaffective disorder, bipolar type ([facility]) 5. Neuropathy Vitamin B-12 6. BACK PAIN, LUMBAR, WITH RADICULOPATHY Ambulatory referral to Physical Therapy 7. ROGERS on CPAP 8. Stroke ([facility]) 9. Environmental and seasonal allergies fluticasone (FLONASE) 50 mcg/nasal spray 10. Gastroesophageal reflux disease without esophagitis dexlansoprazole (DEXILANT) 60 mg D R capsule 11. History of gastric restrictive surgery Vitamin D, 25-Hydroxy Nutrition Services - External - AMB Referral 12. Obesity, Class III, BMI 40-49.9 (morbid obesity) ([facility]) Ambulatory referral to Physical Therapy Nutrition Services - External - AMB Referral 13. Type 2 diabetes mellitus, controlled ([facility]) Ambulatory referral to Physical Therapy [...] Cont your meds as prescribed. F/U with [facility] as scheduled Neuropathy Continue gabapentin. May consider [...] the pain. Would be worth discussing with [facility] professional. Back Pain Will refer to water therapy (aqua fitness) at [facility] as request ed. Cont home exercise, [...] plan. The above note was dictated using [employer] voice recognition software. It may have not been proofread in entirety. Minor errors in grammar may occur. CHIEF COMPLAINT Chief Complaint Patient presents with Establish Care Presents to establish care. Former patient of [facility] in [place]. Other Possible stroke January 2015. Is now [...] auditory, at 36. 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 She is now very well controlled on Saphris, Depakote, and Paxi l. She is followed by [facility] in [place]. She has DM2 that is well controlled [...] worked up by steve rowe, Dr [place], [place]. More recently, she presented to ED with [...] Laterality: N/A; Surgeon: Frandy castellanos DO; Location: [facility] MAIN OR SOCIAL HISTORY History Social [...] mg by mouth Daily. Cholecalciferol (VITAMIN D-3) 47514 units CAPS Oral Take 50,000 Units by [...] Oral Take 10 mg by mouth nightly. [place]-3 Fatty Acids (FISH OIL CONCENTRATE) 1000 MG [...] [place] | | | | | | [address] | | | | | | | [...] | | | | | | controlled ([facility]) | | | | | | Obesity, Class III, | | | | | | BMI 40-49.9 (morbid | | | | | | obesity) ([facility]) | | + + +--------+ + + | Nutrition Services - | Outpatient | Routin | Iron deficiency | Ordered: 03/06/2015 | | External - AMB | Referral | e | anemia Type 2 | | | Referral | | | diabetes mellitus, | | | | | | controlled ([facility]) | | | | | | History of gastric | | | | | | restrictive surgery | | | | | | Obesity, Class III, | | | | | | BMI 40-49.9 (morbid | | | | | | obesity) ([facility]) | | + + +--------+ [...] | | | | mmol/L | [facility] | | | | [...] 12 | 7 - 18 mg/dL | [facility] | | | | | | [facility] | | | | | [facility] | | | | | | CENTER - | | | | | | LABORATORY | | + + + + + + | Creatinine | 0.66 | 0.60 - 1.30 | [facility] | | | | | mg/dL | [facility] | | | | | | MEDICAL | | | | | | CENTER - | | | | | | LABORATORY | | + + + + + + | eGFR if not | >60Comment: GLOMERULAR | >=60 | [facility] | | | | FILTRATION | mL/min/1.73m2 | [facility] | | | OMANI | RATE,ESTIMATED | | MEDICAL | | | | mL/min/1.47v6Knso than | | CENTER - | | [...] [address] | [place] | [phone] | | [facility] | | [address] | | | - LABORATORY | | [...] + | Type 2 diabetes mellitus, controlled ([facility]) Type II or unspecified type diabetes | | mellitus without mention of complication, not stated as uncontrolled | + + | Preventative health care Routine general medical examination at a health care | | facility | + + documented in this encounter
--- OUTSIDE RECORDS SUMMARY | ~2019-10-22 | XMS | Encounter Summary ---
Demographics + + + | Address | [address] [facility] [facility] [address] [facility] | | | [place] [address] | + + + | Home Phone [...] [place], [place] | | | | | [address] | | + + + + + Care Team Providers + +------+ + | Care Computer Scientist Name | Role | Phone | + +------+ + PCP | Unavailable | + +------+ + Encounter Details +--------+ + + + + | Date | Type | Department | Care Team | Description | +--------+ + + + + | 12/24/ | Hospital | [facility] | | | | 1998 | Encounter | MED CTR XRAY [address] | | | | | | [address] | | | | | | [place] [address] | | | | | | [phone] | | | +--------+ + + + [...] | | | | | [place] | | | | | | [address] | | | | | | | | +--------+---------+ + + + documented as of this encounter Visit Diagnoses Not on filedocumented in this encounter"
--- OUTSIDE RECORDS SUMMARY | ~2019-10-22 | XMS | Encounter Summary ---
Demographics + + + | Address | [address] [facility] | | | [place] [address] | + + + | Home Phone [...] [place] | | | | | [address] | | + + + + + Care Team Providers + +------+ + | Care Sliver Lapper Name | Role | Phone | + [...] Closed | | Radiology | Diagnoses | [place], | | | | | | Thoracic or | Natalee L, | | | | | | lumbosacral | [address] | | | | | | neuritis or | [address] | | | | | | | [address] | | | | | | radiculitis, | [place], | | | | | | unspecified | [place] [address] | | | | | | | Phone: | | | | | | Degeneration | [phone] | | | | | | of lumbar | Fax: | | | | | | or | [phone] | | | | | | lumbosacral [...] + + | 03/11/ | Hospital | [facility] | Natalee Andersen | Thoracic or | | 2013 | Encounter | MED CTR MRI [address] | L, [address] | lumbosacral neuritis | | | | [place], | [address] | or radiculitis, | | | | [place] [address] | [place] [address] | unspecified; | | | | [phone] | [phone] | Degeneration of | | | | [...] + + + +---------+ + + | [place]-3 Fatty | Take 1,000 mg by | [...] | | | | | [facility] | | | | | | [address] | | | | | | | [...] + | MISCELLANEOUS LAB | | | [phone] | + +---------+ + + | MISCELANIOUS LAB | | | [phone] | + +---------+ + + documented in this encounter Visit Diagnoses + + | Diagnosis | + + | Thoracic or lumbosacral neuritis or radiculitis, unspecified | + + | Degeneration of lumbar or lumbosacral intervertebral disc | + + documented in this encounter"
--- OUTSIDE RECORDS SUMMARY | ~2019-10-22 | XMS | Encounter Summary ---
Demographics + + + | Address | [address] [facility] | | | [place] [address] | + + + | Home Phone [...] [place] | | | | | [address] | | + + + + + Care Team Providers + +------+ + | Care Refinery Operator Vapor Recovery Unit Name | Role | Phone | + +------+ + | Natalee Andersen NP | PCP | | + +------+ + Encounter Details +--------+ + + + + | Date | Type | Department | Care Team | Description | +--------+ + + + + | 06/25/ | Hospital | [facility] | Frandy Teresa, | Diabetes mellitus | | 2014 | Encounter | MED CTR OR INTRA OP | DO [address] | (HCC) (Primary Dx) | | | | [address] | [address] [place], [place] | | | | | [place], [place] | [address] | | | | | [address] | | | | | | [phone] | | | +--------+ + + + [...] + + + +---------+ + + | [place]-3 Fatty | Take 1,000 mg by [...] [place] | | | | | | [id number] | | | | | | | [...] | | MEDICAL | | | | mL/min/1.31d3Kseb than | | CENTER - | | [...] + | [facility] | [address] | [place], [place] | [phone] | | [facility] | | [address] | | | - LABORATORY | | | | + + + + + | [facility] | [address] | [place], [place] | | | [facility] | | [address] | | | - LABORATORY | | [...] + | [facility] | [address] | [place] | [phone] | | [facility] | | [address] | | | - LABORATORY | | | | + + + + + | [facility] | [address] | [place], [place] | | | [facility] | | [address] | | | - LABORATORY | | [...] [address] | [place] | [phone] | | [facility] | | [address] | | | - LABORATORY | | | | + + + + + | [facility] | [address] | [place] | | | [facility] | | [address] | | | - LABORATORY | | [...] | [facility] | | [address] | | | - BLOOD BANK | [...] + | [facility] | [address] | [place] | [phone] | | [facility] | | [address] | | | - LABORATORY | | | | + + + + + | [facility] | [address] | [place], [place] | | | [facility] | | [address] | | | - LABORATORY | | [...]
--- OUTSIDE RECORDS SUMMARY | ~2019-10-22 | XMS | Encounter Summary ---
Demographics + + + | Address | [address] [facility] [address] [facility] | | | [place] [address] | + + + | Home Phone [...] [place], [place] | | | | | [address] | | + + + + + Care Team Providers + +------+ + | Care Nurse Examiner Name | Role | Phone | + +------+ + PCP | Unavailable | + +------+ + Encounter Details +--------+ + + + + | Date | Type | Department | Care Team | Description | +--------+ + + + + | 04/16/ | Hospital | [facility] | | | | 1997 | Encounter | MED CTR XRAY [address] | | | | | | [address] | | | | | | [place] [address] | | | | | | [phone] | | | +--------+ + + + [...] | | | | [place] | | | | | | [address] | | | | | | | | +--------+---------+ + + + documented as of this encounter Visit Diagnoses Not on filedocumented in this encounter"
--- OUTSIDE RECORDS SUMMARY | ~2019-10-22 | XMS | Encounter Summary ---
Demographics + + + | Address | [address] [facility] | | | [place] [address] | + + + | Home Phone [...] [place], [place] | | | | | [address] | | + + + + + Care Team Providers + +------+ + | Care Safety Grooving Machine Operator Name | Role | Phone | + +------+ + PCP | Unavailable | + +------+ + Encounter Details +--------+ + + + + | Date | Type | Department | Care Team | Description | +--------+ + + + + | 10/29/ | Hospital | [facility] | | | | 1994 | Encounter | MED CTR LABORATORY | | | | | | [address] | | | | | | [place] | | | | | | [address] | | | | | | [phone] | | | +--------+ + + + [...] | | | | | [place] | | | | | | [address] | | | | | | | | +--------+---------+ + + + documented as of this encounter Visit Diagnoses Not on filedocumented in this encounter"
--- OUTSIDE RECORDS SUMMARY | ~2019-10-22 | XMS | Encounter Summary ---
Demographics + + + | Address | [address] [facility] | | | [place] [address] | + + + | Home Phone [...] [place] | | | | | [address] | | + + + + + Care Team Providers + +------+ + | Care Regenerator Operator Name | Role | Phone | [...] | | | spondylolist | | [address] | | | | | hesis | | [place], | | | | | Spinal | | [place] [address] | | | | | stenosis, | | Phone: | | | | | lumbar | | [phone] | | | | | region, | | Fax: | | | | | without | | [phone] | | | | | neurogenic | [...] | | | | | | | [place] | | | | | | [...] | | | | | | [place] | | | | | | | [...] | | | | | | [place] | | | | | | | [...] | 07/02/ | Hospital | [facility] | Frandy Teresa, | Degenerative disc | | 2013 - | Encounter | MED CTR SURGICAL | DO [address] | disease, lumbar | | | | [address] | [place] | (Primary Dx); | | 07/05/ | | [place] [address] | [id number] | Diabetes mellitus | | 2013 | | [phone] | | ([facility]); Disturbance | | | | | [...] might be different fro m the original. [facility] DISCHARGE SUMMARY PATIENT NAME: Cindy Arndt : [...] Take 15 mg by mouth nightl y. Bellport-3 Fatty Acids (FISH OIL CONCENTRATE) 1000 MG [...] + + + +---------+ + + | Bellport-3 Fatty | Take 1,000 mg by | [...] -DC plan: SNF versus home with [facility] any time. Maria T Storm RN - 07/04/2014 6:56 PM PDTFoley cath dc'd and MARI drain dc'd no problems. Chris Lynn PA-C - 07/04/2014 7:43 AM PDT [facility] PROGRESS NOTE Pt. Name/Age/: Cindy Ardnt 58 y.o. 1955 Med. Record Number: [id number] Date of admission: 07/02/2014 Subjective: The patient [...] home medications. D/C plan: Home tomorrow with [facility]. D/c mari drain and riley cath today. 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 Patient Active Problem List Diagnosis LUMBAR DISC [...] signed by: Chris Nicole, 07/04/2014 7:45 [facility] Chris Lynn PA-C - 07/03/2014 7:13 AM PDT . [facility] PROGRESS NOTE Pt. Name/Age/: Cindy Arndt 58 y.o. 1955 Med. Record Number: [id number] Date of admission: 07/02/2014 Subjective: The patient [...] Electronically signed by: Chris Nicole, 07/03/2014 7:13 [facility] Ton Menjivar, KRIS - 07/03/2014 6:50 AM [...] [place] | | | | | | [address] | | | | | | | [...] + | [facility] | [address] | [place], [place] | [phone] | | [facility] | | [address] | | | - LABORATORY | | | | + + + + + | [facility] | [address] | [place], [place] | | | [facility] | | [address] | | | - LABORATORY | | [...] + | [facility] | [address] | [place] | [phone] | | [facility] | | [address] | | | - LABORATORY | | | | + + + + + | [facility] | [address] | [place] | | | [facility] | | [address] | | | - LABORATORY | | [...] + | [facility] | [address] | [place] | [phone] | | [facility] | | [address] | | | - LABORATORY | | | | + + + + + | [facility] | [address] | [place] | | | [facility] | | [address] | | | - LABORATORY | | [...] + | [facility] | [address] | [place], [place] | [phone] | | [facility] | | [address] | | | - LABORATORY | | | | + + + + + | [facility] | [address] | [place], [place] | | | [facility] | | [address] | | | - LABORATORY | | [...] + | [facility] | [address] | [place] | [phone] | | [facility] | | [address] | | | - LABORATORY | | | | + + + + + | [facility] | [address] | [place] | | | [facility] | | [address] | | | - LABORATORY | | [...] + | [facility] | [address] | [place] | [phone] | | [facility] | | [address] | | | - LABORATORY | | | | + + + + + | [facility] | [address] | [place] | | | [facility] | | [address] | | | - LABORATORY | | [...] [address] | [place] | [phone] | | [facility] | | [address] | | | - LABORATORY | | | | + + + + + | [facility] | [address] | [place] | | | [facility] | | [address] | | | - LABORATORY | | [...] + | [facility] | [address] | [place], [place] | [phone] | | [facility] | | [address] | | | - LABORATORY | | | | + + + + + | [facility] | [address] | [place], [place] | | | [facility] | | [address] | | | - LABORATORY | | [...] [address] | [place] | [phone] | | [facility] | | [address] | | | - LABORATORY | | | | + + + + + | [facility] | [address] | [place], [place] | | | [facility] | | [address] | | | - LABORATORY | | [...] | of hardware for posterior fusion from [id number] S1 with interbody hardware at L5-S1. The [...] + | MISCELLANEOUS LAB | | | [phone] | + +---------+ + + | MISCELANIOUS LAB | | | [phone] | + +---------+ + + POC Glucose [...] + | [facility] | [address] | [place], [place] | [phone] | | [facility] | | [address] | | | - LABORATORY | | | | + + + + + | [facility] | [address] | [place], [place] | | | [facility] | | [address] | | | - LABORATORY | | [...] + | [facility] | [address] | [place] | [phone] | | [facility] | | [address] | | | - LABORATORY | | | | + + + + + | [facility] | [address] | [place] | | | [facility] | | [address] | | | - LABORATORY | | [...] | | | POC | | | [facility] | | | | | [...] + | [facility] | [address] | [place] | [phone] | | [facility] | | [address] | | | - LABORATORY | | | | + + + + + | [facility] | [address] | [place] | | | [facility] | | [address] | | | - LABORATORY | | [...] + | [facility] | [address] | [place], [place] | [phone] | | [facility] | | [address] | | | - LABORATORY | | | | + + + + + | [facility] | [address] | [place] | | | [facility] | | [address] | | | - LABORATORY | | [...] + | [facility] | [address] | [place] | [phone] | | [facility] | | [address] | | | - LABORATORY | | | | + + + + + | [facility] | [address] | [place] | | | [facility] | | [address] | | | - LABORATORY | | [...] | | | [facility] | | [address] | | | - BLOOD BANK | [...] + +---------+ +---+---+---+ | morphine 5 mg/mL THERAPEUTIC MASSAGE TECHNICIAN syringe | New Bag | 07/02/20 [...] | | | | Dose(mg): 0, Starting THERAPEUTIC MASSAGE TECHNICIAN | | | | | | | Dose(mg): 1, Incremental Increase | | | | | | | THERAPEUTIC MASSAGE TECHNICIAN Dose(mg): 0.5, Maximum THERAPEUTIC MASSAGE TECHNICIAN | | | | | | [...]
--- OUTSIDE RECORDS SUMMARY | ~2019-10-22 | XMS | Encounter Summary ---
Demographics + + + | Address | [address] [facility] | | | [place] [address] | + + + | Home Phone [...] [place] | | | | | [address] | | + + + + + Care Team Providers + +------+ + | Care Day Guard Name | Role | Phone | + +------+ + | Basim Bolanos MD | PCP | | + +------+ + Encounter Details +--------+ + + + + | Date | Type | Department | Care Team | Description | +--------+ + + + + | 01/24/ | Abstract | [facility] [place] | [facility], | | | 2012 | | GASTROENTEROLOGY | FORTUNATO Thomas [address] | | | | | [address] [place] | [place], [address] | | | | | [address] [place], [place] | [place], [place] | | | | | [address] | [address] | | | | | [phone] | | | +--------+ + + + [...] [place] | | | | | | [address] | | | | | | | | +--------+---------+ + + + documented as of this encounter Visit Diagnoses Not on filedocumented in this encounter"
--- OUTSIDE RECORDS SUMMARY | ~2019-10-22 | XMS | Encounter Summary ---
Demographics + + + | Address | [address] [facility] | | | [place] [address] | + + + | Home Phone [...] [place], [place] | | | | | [address] | | + + + + + Care Team Providers + +------+ + | Care Steam And Gas Turbines Assembler Name | Role | Phone | + +------+ + PCP | Unavailable | + +------+ + Encounter Details +--------+ + + + + | Date | Type | Department | Care Team | Description | +--------+ + + + + | 09/10/ | Hospital | [facility] | | | | 1992 | Encounter | MED CTR LABORATORY | | | | | | [address] | | | | | | [place] | | | | | | [address] | | | | | | [phone] | | | +--------+ + + + [...] | | | | | [place] | | | | | | [address] | | | | | | | | +--------+---------+ + + + documented as of this encounter Visit Diagnoses Not on filedocumented in this encounter"
--- OUTSIDE RECORDS SUMMARY | ~2019-10-22 | XMS | Encounter Summary ---
Demographics + + + | Address | [address] [facility] | | | [place] [address] | + + + | Home Phone [...] [place] | | | | | [address] | | + + + + + Care Team Providers + +------+ + | Care Block Machine Operator Name | Role | Phone [...] [address] | [place] [address] [place], [place] | | | | | [place], [place] | [id number] | | | | | [address] | | | | | | [phone] | | | +--------+ + + + [...] | | | | | [place] | | | | | | [address] | | | | | | | | +--------+---------+ + + + documented as of this encounter Visit Diagnoses Not on filedocumented in this encounter"
--- OUTSIDE RECORDS SUMMARY | ~2019-10-22 | XMS | Encounter Summary ---
Demographics + + + | Address | [address] [facility] | | | [place] [address] | + + + | Home Phone [...] [place] | | | | | [address] | | + + + + + [...] + + | 04/30/ | Office | [facility] | Russell Alfaro PA | ROGERS on CPAP (Primary | | 2015 | Visit | SLEEP DISORDER 401 | [address] | Dx) | | | | [address] | [place] | | | | | [place] [address] | [address] | | | | | [phone] | | | +--------+---------+ + + + [...] Insomnia Severity Index Insomnia Severity Index 13 Clinton Sleepiness Scale Sitting and reading 3 Watching [...] nasal obtained from: [facility] [place] pressure: 11-20 cm Median: 12.1 cm 95%: [...] appro priate paperwork. Thirty minutes were spent [id number]-kqdy, with the majority of time spent i [...] | | | | | [place], [place] | | | | | | [address] | | | | | | | | +--------+---------+ + + + documented as of this encounter Visit Diagnoses + + | Diagnosis | + + | ROGERS on CPAP - Primary Obstructive sleep apnea (adult) (pediatric) | + + documented in this encounter"
--- OUTSIDE RECORDS SUMMARY | ~2019-10-22 | XMS | Encounter Summary ---
Demographics + + + | Address | [address] [facility] | | | [place] [address] | + + + | Home Phone [...] [place] | | | | | [address] | | + + + + + Care Team Providers + +------+ + | Care Cullet Crusher And Washer Name | Role | Phone | [...] + + | 08/09/ | Clinical | [facility] | Desiree Peterson DO | Syncope, unspecified | | 2019 | Support | CARDIOLOGY [place] | [address] | syncope type | | | | [address] | [place], [place] | | | | | [place] [address] | [address] | | | | | [place] | | | | | | [address] | Dora De La Torre | | | | | [phone] | [address]OL[address] | | | | | | [address] | | | | | | [place] [address] | | | | | | [phone] | | | | | | | [...] [place] | | | | | | [address] | | | | | | | | +--------+---------+ + + + documented as of this encounter Visit Diagnoses + + | Diagnosis | + + | Syncope, unspecified syncope type | + + documented in this encounter"
--- OUTSIDE RECORDS SUMMARY | ~2019-10-22 | XMS | Encounter Summary ---
Demographics + + + | Address | [address] [facility] | | | [place] [address] | + + + | Home Phone [...] [place] | | | | | [address] | | + + + + + Care Team Providers + +------+ + | Care Air Traffic Controller Center Name | Role | Phone | [...] + + | 03/04/ | Telephone | [facility] | Baudilio Newman | Other (Plavix) | | 2014 | | NEUROLOGY LAURIE | MD Pollo Need updated | | | | | [address], | address | | | | | [address] [place] | | | | | | [place] [address] | | | | | | [phone] | | | +--------+ + + + [...] [place] | | | | | | [address] | | | | | | | | +--------+---------+ + + + documented as of this encounter Visit Diagnoses Not on filedocumented in this encounter"
--- OUTSIDE RECORDS SUMMARY | ~2019-10-22 | XMS | Encounter Summary ---
Demographics + + + | Address | [address] [facility] | | | [place] [address] | + + + | Home Phone [...] [place] | | | | | [address] | | + + + + + Care Team Providers + +------+ + | Care Life Sciences Manager Name | Role | Phone | [...] | | | | | | [place] [address] | | | | | | [phone] | | | | | | | [...] in | | | | | | [place] with a | | | | | [...] [facility] | | | | | | [facility] | | | | | | Laboratory, [place], | | | | | | [place], [...] by | | | | | | pagppnwkNej-Ofp-I: | | | | | | Increased [...] istryMHC-1: | | | | | | [id number] stain | | | | | | [...] | + + + + + | [facility] | [address] | [place] [address] | | | PATHOLOGY | [place] | | | + + + + + documented in this encounter Visit Diagnoses Not on filedocumented in this encounter
--- OUTSIDE RECORDS SUMMARY | ~2019-10-22 | XMS | Encounter Summary ---
Demographics + + + | Address | [address] [facility] | | | [place] [address] | + + + | Home Phone [...] [place] | | | | | [address] | | + + + + + Care Team Providers + +------+ + | Care Chief Operator Hydroformer Name | Role | Phone | + [...] [place] | | | | | | [address] | | | | | | [phone] | | | +--------+ + + + [...] [place] | | | | | | [address] | | | | | | | | +--------+---------+ + + + documented as of this encounter Visit Diagnoses Not on filedocumented in this encounter"
--- OUTSIDE RECORDS SUMMARY | ~2019-10-22 | XMS | Encounter Summary ---
Demographics + + + | Address | [address] [facility] | | | [place] [address] | + + + | Home Phone [...] [place] | | | | | [address] | | + + + + + Care Team Providers + +------+ + | Care School Transportation Director Name | Role | Phone | [...] | | [address] | [place] [address] | | | | | [place], [place] | [phone] | | | | | [address] | | | | | | [phone] | | | +--------+ + + + [...] | | | | | | [facility] | | | | | | [address] | | | | | | | | +--------+---------+ + + + documented as of this encounter Visit Diagnoses Not on filedocumented in this encounter"
--- OUTSIDE RECORDS SUMMARY | ~2019-10-22 | XMS | Encounter Summary ---
Demographics + + + | Address | [address] [facility] | | | [place] [address] | + + + | Home Phone [...] [place], [place] | | | | | [address] | | + + + + + Care Team Providers + +------+ + | Care Investment Sales Assistant Name | Role | [...] | | | | | [place] [address] | | | | | | [phone] | | | +--------+ + + + [...] | | | | | [place] | | | | | | [address] | | | | | | | | +--------+---------+ + + + documented as of this encounter Visit Diagnoses Not on filedocumented in this encounter"
--- OUTSIDE RECORDS SUMMARY | ~2019-10-22 | XMS | Encounter Summary ---
Demographics + + + | Address | [address] [facility] | | | [place] [address] | + + + | Home Phone [...] [place], [place] | | | | | [address] | | + + + + + Care Team Providers + +------+ + | Care Order Puller Name | Role | Phone | + +------+ + PCP | Unavailable | + +------+ + Encounter Details +--------+ + + + + | Date | Type | Department | Care Team | Description | +--------+ + + + + | 12/06/ | Hospital | [facility] | | | | 1994 | Encounter | MED CTR LABORATORY | | | | | | [address] | | | | | | [place] | | | | | | [address] | | | | | | [phone] | | | +--------+ + + + [...] | | | | | [place] | | | | | | [address] | | | | | | | | +--------+---------+ + + + documented as of this encounter Visit Diagnoses Not on filedocumented in this encounter"
--- OUTSIDE RECORDS SUMMARY | ~2019-10-22 | XMS | Encounter Summary ---
Demographics + + + | Address | [address] [facility] | | | [place] [address] | + + + | Home Phone [...] [place], [place] | | | | | [address] | | + + + + + Care Team Providers + +------+ + | Care Bottle Sorter Name | Role | Phone | + +------+ + PCP | Unavailable | + +------+ + Encounter Details +--------+ + + + + | Date | Type | Department | Care Team | Description | +--------+ + + + + | 12/27/ | Hospital | [facility] | | | | 1997 | Encounter | MED CTR EMERGENCY | | | | | | [address] | | | | | | [place] | | | | | | [address] | | | | | | [phone] | | | +--------+ + + + [...] | | | | | [place] | | | | | | [address] | | | | | | | | +--------+---------+ + + + documented as of this encounter Visit Diagnoses Not on filedocumented in this encounter"
--- OUTSIDE RECORDS SUMMARY | ~2019-10-22 | XMS | Encounter Summary ---
Demographics + + + | Address | [address] [facility] | | | [place] [address] | + + + | Home Phone [...] [place] | | | | | [address] | | + + + + + Care Team Providers + +------+ + | Care Assurance Analyst Name | Role | Phone | [...] [address] | [address] [place], [place] | | | | | [place], [place] | [id number] | | | | | [address] | | | | | | [phone] | | | +--------+ + + + [...] | | | | | [place] | | | | | | [address] | | | | | | | | +--------+---------+ + + + documented as of this encounter Visit Diagnoses Not on filedocumented in this encounter"
--- OUTSIDE RECORDS SUMMARY | ~2019-10-22 | XMS | Encounter Summary ---
Demographics + + + | Address | [address] [facility] | | | [place] [address] | + + + | Home Phone [...] [place] | | | | | [address] | | + + + + + Care Team Providers + +------+ + | Care Group Rooms Coordinator Name | Role | Phone | [...] [id number] | | | | | | [place], [place] | | | | | | [address] | | | | | | [phone] | | | +--------+ + + + [...] + + + | [facility] | [address] | [place] [address] | | | PATHOLOGY | [address] [...] Re | | | | | | [address] | | | | + + + + + + + + | Specimen | + + | | + + + + + + + | Performing | Address | City/State/Zipcode | Phone Number | | Organization | | | | + + + + + | [facility] | [address] | [place] [address] | | | PATHOLOGY | [address] [...] Re | | | | | | [phone] | | | | + + + + + + + + | Specimen | + + | | + + + + + + + | Performing | Address | City/State/Zipcode | Phone Number | | Organization | | | | + + + + + | [facility] | [address] | [place] [address] | | | PATHOLOGY | [address] [...] Re | | | | | | [phone] | | | | + + + + + + + + | Specimen | + + | | + + + + + + + | Performing | Address | City/State/Zipcode | Phone Number | | Organization | | | | + + + + + | [facility] | [address] | [place] [address] | | | PATHOLOGY | [address] [...] Re | | | | | | [phone] | | | | + + + + + + + + | Specimen | + + | | + + + + + + + | Performing | Address | City/State/Zipcode | Phone Number | | Organization | | | | + + + + + | [facility] | [address] | [place] [address] | | | PATHOLOGY | [address] | | | + + + + + documented in this encounter Visit Diagnoses Not on filedocumented in this encounter"
--- OUTSIDE RECORDS SUMMARY | ~2019-10-22 | XMS | Encounter Summary ---
Demographics + + + | Address | [address] [facility] | | | [place] [address] | + + + | Home Phone [...] [place], [place] | | | | | [address] | | + + + + + Care Team Providers + +------+ + | Care Casing Crew Pusher Name | Role | Phone | + +------+ + PCP | Unavailable | + +------+ + Encounter Details +--------+ + + + + | Date | Type | Department | Care Team | Description | +--------+ + + + + | 02/02/ | Hospital | [facility] | Serafin Bautista | | | 2012 | Encounter | MED CTR XRAY [address] | T, MD [address] | | | | | [place] | [address] [place], [place] | | | | | [place] [address] | [address] | | | | | [phone] | | | +--------+ + + + [...] [place] | | | | | | [address] | | | | | | | [...] Performed At | + + + | [facility] Diagnostic [facility] Department | [facility] | | [address] | [facility] | | PROCEDURE: EPIDURAL STEROID | DIAG [...] Transcribed Date/Time: | | | 02/03/2012 18:45 Roofer Apprentice: <Electronically Signed | | | by Serafin Bautista MD> 02/14/12 0916 | | + + + + + | Procedure Note | + + | Juan, Rad Conversion - 11/30/2013 5:06 PM [facility] | | Diagnostic Imaging Department | | [address] | | | | | | [...] | Transcribed Date/Time: 02/03/2012 18:45 | | Roofer Apprentice: LaMAHIN | | <Electronically Signed by Serafni Bautista MD> 02/14/12 0916 | + + [...]
--- OUTSIDE RECORDS SUMMARY | ~2019-10-22 | XMS | Encounter Summary ---
Demographics + + + | Address | [address] [facility] | | | [place] [address] | + + + | Home Phone [...] [place] | | | | | [address] | | + + + + + Care Team Providers + +------+ + | Care Street Sprinkler Name | Role | Phone | + +------+ + | Basim Bolanos MD | PCP | | + +------+ + Encounter Details +--------+ + + + + | Date | Type | Department | Care Team | Description | +--------+ + + + + | 02/22/ | Abstract | [facility] [place] | [facility], | | | 2012 | | GASTROENTEROLOGY | FORTUNATO Thomas [address] | | | | | [address] | [place], [address] | | | | | [address] [place], [place] | [place], [place] | | | | | [address] | [address] | | | | | [phone] | | | +--------+ + + + [...] [place] | | | | | | [address] | | | | | | | | +--------+---------+ + + + documented as of this encounter Visit Diagnoses Not on filedocumented in this encounter"
--- OUTSIDE RECORDS SUMMARY | ~2019-10-22 | XMS | Encounter Summary ---
Demographics + + + | Address | [address] [facility] | | | [place] [address] | + + + | Home Phone [...] [place], [place] | | | | | [address] | | + + + + + Care Team Providers + +------+ + | Care Sausage Stringer Name | Role | Phone | + +------+ + PCP | Unavailable | + +------+ + Encounter Details +--------+ + + + + | Date | Type | Department | Care Team | Description | +--------+ + + + + | 02/28/ | Hospital | [facility] | Deon Gonzales | | | 2011 | Encounter | MED CTR SLEEP | MD Laure[address] | | | | | [place] [address] | [address] [place] | | | | | [place], [place] | [place] [address] | | | | | [address] | [phone] | | | | | [phone] | | | +--------+ + + + [...] [place] | | | | | | [address] | | | | | | | | +--------+---------+ + + + documented as of this encounter Visit Diagnoses Not on filedocumented in this encounter"
--- OUTSIDE RECORDS SUMMARY | ~2019-10-22 | XMS | Encounter Summary ---
Demographics + + + | Address | [address] [facility] | | | [place] [address] | + + + | Home Phone [...] [place] | | | | | [address] | | + + + + + Care Team Providers + +------+ + | Care Clinical Social Worker Name | Role | Phone | [...] [place] | | | | | | [address] | | | | | | [phone] | | | +--------+ + + + [...] [place] | | | | | | [address] | | | | | | | | +--------+---------+ + + + documented as of this encounter Visit Diagnoses Not on filedocumented in this encounter"
--- OUTSIDE RECORDS SUMMARY | ~2019-10-22 | XMS | Encounter Summary ---
Demographics + + + | Address | [address] [facility] | | | [place] [address] | + + + | Home Phone [...] [place], [place] | | | | | [address] | | + + + + + Care Team Providers + +------+ + | Care Manager Floor Name | Role | Phone | + +------+ + PCP | Unavailable | + +------+ + Encounter Details +--------+ + + + + | Date | Type | Department | Care Team | Description | +--------+ + + + + | 02/22/ | Hospital | [facility] | | | | 1996 | Encounter | MED CTR EMERGENCY | | | | | | ZAKIYA Stone | | | | | | [place] | | | | | | [address] | | | | | | [phone] | | | +--------+ + + + [...] | | | | | [place] | | | | | | [address] | | | | | | | | +--------+---------+ + + + documented as of this encounter Visit Diagnoses Not on filedocumented in this encounter"
--- OUTSIDE RECORDS SUMMARY | ~2019-10-22 | XMS | Encounter Summary ---
Demographics + + + | Address | [address] [facility] | | | [place] [address] | + + + | Home Phone [...] [place] | | | | | [address] | | + + + + + Care Team Providers + +------+ + | Care Organ Tuner Name | Role | Phone | + [...] | | [address] | [place], [place] | | | | | [place], [place] | [address] | | | | | [address] | | | | | | [phone] | | | +--------+ + + + [...] | | | | [place] | | | | | | [address] [...] 0.83 m/s | | | MV Dec Campbell: 2.85 m/s2 MV DecT: 282.89 ms MV E Teodoro: 0.80 | | | m/s MV E/A Ratio: 0.96 E/E' Sept: 12.59 E' Lat: 0.08 m/s | | | E' Sept: 0.06 m/s RAP: 10 mmHg RV S': 0.11 m/s RVSP: | | | 27.96 mmHg TR maxP.96 mmHg TR Vmax: 2.11 m/s | | | Prepared Foods Production Team Member: Authenticated by: Desiree Peterson MD Report Date/Time: | | | -- [id number]:[id number] | | + + + + + [...] (A-L): 19.60 | | ml/m2LAAs A2C: 15.44 [id number] A-L A2C: 43.84 mlLAESV MOD A2C: 42.12 mlLALs A2C: | | 4.61 cmLAAs A4C: 14.18 [id number] A-L A4C: 38.73 mlLAESV MOD A4C: 37.04 mlLALs A4C: | | 4.41 cmRAAs: 12.15 [id number] A-L: 28.54 mlRAESV MOD: 28.66 mlRALs: 4.39 | | cmTAPSE: 2.42 cmAV Env.Ti: 293.94 msAV maxP.18 mmHgAV meanP.09 mmHgAV | | Vmax: 1.88 m/Eddie Vmean: 1.25 m/Eddie VTI: 36.84 cmAVA Vmax: 2.06 cm2AVA (VTI): | | 2.24 [id number] Vmax: 0.00 cm2/m2AVAI (VTI): 0.00 cm2/m2LVOT Env.Ti: 299.59 msLVOT | | maxP.52 mmHgLVOT meanP.65 mmHgLVSI Dopp: 38.55 ml/m2LVSV Dopp: 82.89 | | mlLVOT Vmax: 1.27 m/sLVOT Vmean: 0.91 m/sLVOT VTI: 27.27 cmMV A Teodoro: 0.83 m/sMV | | Dec Campbell: 2.85 m/s2MV DecT: 282.89 msMV E Teodoro: 0.80 m/sMV E/A Ratio: 0.96E/E' | | Sept: 12.59E' Lat: 0.08 m/sE' Sept: 0.06 m/sRAP: 10 mmHgRV S': 0.11 m/sRVSP: | | 27.96 mmHgTR maxP.96 mmHgTR Vmax: 2.11 m/s Prepared [employer] Production Team Member:Authenticated by: | | Desiree Peterson MDReport Date/Time: -- [id number]:31:1 IMPRESSION: 1. Overall left | | ventricular [...] A Teodoro: 0.83 m/s | |MV Dec Campbell: 2.85 m/s2 | |MV DecT: 282.89 ms | |MV E Teodoro: 0.80 m/s | |MV E/A Ratio: 0.96 | |E/E' Sept: 12.59 | |E' Lat: 0.08 m/s | |E' Sept: 0.06 m/s | |RAP: 10 mmHg | |RV S': 0.11 m/s | |RVSP: 27.96 mmHg | |TR maxP.96 mmHg | |TR Vmax: 2.11 m/s | | | |Prepared Foods Production Team Member: | |Authenticated by: Desiree Peterson MD | |Report Date/Time: -- [id number]:31:1 | | | |IMPRESSION: | |1. Overall [...]
--- OUTSIDE RECORDS SUMMARY | ~2019-10-22 | XMS | Encounter Summary ---
Demographics + + + | Address | [address] [facility] | | | [place] [address] | + + + | Home Phone [...] [place] | | | | | [address] | | + + + + + Care Team Providers + +------+ + | Care Big Data Developer Name | Role | Phone | [...] + | 08/20/ | Documentati | [facility] | Katharine Moncada, | Other (urgent | | 2019 | on | CARDIOLOGY [place] | Technologist | report) | | | | [address] | | | | | | [place] | | | | | | [address] | | | | | | [phone] | | | +--------+ + + + [...] [place] | | | | | | [address] | | | | | | | | +--------+---------+ + + + documented as of this encounter Visit Diagnoses Not on filedocumented in this encounter"
--- OUTSIDE RECORDS SUMMARY | ~2019-10-22 | XMS | Encounter Summary ---
Demographics + + + | Address | [address] [facility] | | | [place] [address] | + + + | Home Phone [...] + +------+ + | Care High School Science Teacher Name | Role | Phone | [...] | Transcriptions | + + | Interface, Pad Extraction Tender In - 10/24/2006 3:09 AM PST | | [id number] | | Road [place], [place] [address] [place] | | [facility] CenterOPERATION RECORDMed Rec No.: [id number] Date: [...]
--- OUTSIDE RECORDS SUMMARY | ~2019-10-22 | XMS | Encounter Summary ---
Demographics + + + | Address | [address] [facility] | | | [place] [address] | + + + | Home Phone [...] [place] | | | | | [address] | | + + + + + Care Team Providers + +------+ + | Care Commercial Intern Name | Role | Phone | [...] + | 07/29/ | Telephone | [facility] | Frandy Teresa, | Other (multiple | | 2013 | | NEUROSURGERY [address] | DO [address] | questions) | | | | [address] | [address] [place], [place] | | | | | [place], [place] | [address] | | | | | [address] | | | | | | [phone] | | | +--------+ + + + [...] | | | | | [place] | | | | | | [address] | | | | | | | | +--------+---------+ + + + documented as of this encounter Visit Diagnoses Not on filedocumented in this encounter"
--- OUTSIDE RECORDS SUMMARY | ~2019-10-22 | XMS | Encounter Summary ---
Demographics + + + | Address | [address] [facility] | | | [place] [address] | + + + | Home Phone [...] [place] | | | | | [address] | | + + + + + Care Team Providers + +------+ + | Care Data Conversion Analyst Name | Role | Phone | [...] | | | | | pain, | [place], [place] | | | | | | bilateral | [address] | | | | | | Degenerative | Phone: | | | | | | disc | [phone] | | | | | | disease, | Fax: | | | | | | lumbar | [phone] | | | | | | Spinal [...] [address] | [address] [place], [place] | (Primary Dx); Knee | | | | [place], [place] | [address] | pain, bilateral; | | | | [address] | | DEGENERATIVE DISC | | | | [phone] | | DISEASE, LUMBAR | | | [...] | | | | [place] | | | | | | [address] | | | | | | | [...]
--- OUTSIDE RECORDS SUMMARY | ~2019-10-22 | XMS | Encounter Summary ---
Demographics + + + | Address | [address] [facility] | | | [place] [address] | + + + | Home Phone [...] [place] | | | | | [address] | | + + + + + Care Team Providers + +------+ + | Care Commissary Superintendent Name | Role | Phone | + +------+ + | Natalee Andersen NP | PCP | | + +------+ + Encounter Details +--------+ + + + + | Date | Type | Department | Care Team | Description | +--------+ + + + + | 06/26/ | Hospital | [facility] | Heather Cordero PT | | | 2014 | Encounter | MED CTR ACUTE | [address] | | | | | PHYSICAL THERAPY | [place] | | | | | [address] [place] | [address] | | | | | [place] [address] | | | | | | [phone] | | | +--------+ + + + [...] + + + +---------+ + + | [place]-3 Fatty | Take 1,000 mg by | [...] [place] | | | | | | [address] | | | | | | | | +--------+---------+ + + + documented as of this encounter Visit Diagnoses Not on filedocumented in this encounter"
--- OUTSIDE RECORDS SUMMARY | ~2019-10-22 | XMS | Encounter Summary ---
Demographics + + + | Address | [address] [facility] | | | [place] [address] | + + + | Home Phone [...] [place] | | | | | [address] | | + + + + + Care Team Providers + +------+ + | Care Securities Vault Supervisor Name | Role | Phone | [...] [address] | [address] [place], [place] | | | | | [place], [place] | [id number] | | | | | [address] | | | | | | [phone] | | | +--------+ + + + [...] | | | | | [place] | | | | | | [address] | | | | | | | | +--------+---------+ + + + documented as of this encounter Visit Diagnoses Not on filedocumented in this encounter"
--- OUTSIDE RECORDS SUMMARY | ~2019-10-22 | XMS | Encounter Summary ---
Demographics + + + | Address | [address] [facility] | | | [place] [address] | + + + | Home Phone [...] [place] | | | | | [address] | | + + + + + Care Team Providers + +------+ + | Care Instructor Of Education Name | Role | Phone [...] + + | 03/06/ | Office | [facility] | Deon Gonzales | ROGERS (obstructive | | 2012 | Visit | SLEEP DISORDER [address] | MD [address] | sleep apnea) | | | | [address] [place] | [address] [place] | (Primary Dx); | | | | [place] [address] | [place] [address] | Sleepiness | | | | [phone] | [phone] | | | | | | | [...] differen t from the original. 03/06/13 [address] [place] Sleepiness Scale Sitting and reading 3 Watching [...] by mouth Daily., Disp: , Rfl: ; [place]-3 Fatty Acids (FISH OIL CONCENTRATE) 1000 [...] | | | | | [place] | | | | | | [id number] | | | | | | | | +--------+---------+ + + + documented as of this encounter Visit Diagnoses + + | Diagnosis | + + | ROGERS (obstructive sleep apnea) - Primary Obstructive sleep apnea (adult) (pediatric) | + + | Sleepiness Other alteration of consciousness | + + documented in this encounter"
--- OUTSIDE RECORDS SUMMARY | ~2019-10-22 | XMS | Encounter Summary ---
Demographics + + + | Address | [address] [facility] | | | [place] [address] | + + + | Home Phone [...] [place] | | | | | [address] | | + + + + + Care Team Providers + +------+ + | Care Investment Counselor Name | Role | Phone | [...] + | 07/19/ | Telephone | [facility] | Frandy Teresa, | Appointment | | 2013 | | NEUROSURGERY [address] | DO [address] | | | | | [address] | [address] [place], [place] | | | | | [place], [place] | [address] | | | | | [address] | | | | | | [phone] | | | +--------+ + + + [...] [place] | | | | | | [address] | | | | | | | | +--------+---------+ + + + documented as of this encounter Visit Diagnoses Not on filedocumented in this encounter"
--- OUTSIDE RECORDS SUMMARY | ~2019-10-22 | XMS | Encounter Summary ---
Demographics + + + | Address | [address] [facility] | | | [place] [address] | + + + | Home Phone [...] [place] | | | | | [address] | | + + + + + [...] + + | 10/04/ | Office | [facility] | Desiree Peterson DO | ROGERS on CPAP (Primary | | 2019 | Visit | CARDIOLOGY [place] | [address] | Dx); Morbid obesity | | | | [address] | [place], [place] | (HCC); Benign | | | | [address] | [address] | essential HTN; | | | | [place], [place] | | Atrial fibrillation, | | | | [address] | | unspecified type | | | | [phone] | | ([facility]) | +--------+---------+ + + + Social History [...] + documented in this encounter Progress Notes Desiere Peterson DO - 10/04/2019 11:40 AM PST [facility] Cardiology Cardiology Follow Up Note Reason [...] rtake in exercise. She recently got a [employer]ua and has been walking him more regularly. [...] by mouth daily. Blood Glucose Monitoring Suppl (Heroes2uIO FLEX SYSTEM) w/Device KIT by Does not ap ply route. budesonide-formoterol (SYMBICORT) 160-4.5 MCG/ACT inhaler Inhale 2 puffs into the lungs 2 (two) times daily. Calcium Carbonate Antacid 1000 MG tablet Take 1,000 mg by mouth 3 (three) times daily. Cholecalciferol (VITAMIN D3) 30294 units CAPS Take by mouth once a [...] [place] | | | | | | [id number] | | | | | | | [...]
--- OUTSIDE RECORDS SUMMARY | ~2019-10-22 | XMS | Encounter Summary ---
Demographics + + + | Address | [address] [facility] | | | [place] [address] | + + + | Home Phone [...] [place] | | | | | [address] | | + + + + + [...] Rd | | | | | | [place], [place] | | | | | | [address] | | | +--------+ + + + [...]
--- OUTSIDE RECORDS SUMMARY | ~2019-10-22 | XMS | Encounter Summary ---
Demographics + + + | Address | [address] [facility] | | | [place] [address] | + + + | Home Phone [...] [place] | | | | | [address] | | + + + + + Care Team Providers + +------+ + | Care Factory Superintendent Name | Role | Phone | [...] | Services | ogy | Epigastric | [facility], | Tyrese Shelley MD | | | Required | | abdominal | [place], | [address], | | | | | pain GERD | CT TECH [address] | [address] | | | | | (gastroesoph | [address], [address] | [place], | | | | | ageal reflux | [address] [place] | [place] [address] | | | | | disease) | [place], [place] | Phone: | | | | | Fatty liver | [address] | [phone] | | | | | DM | Phone: | Fax: | | | | | (diabetes | [phone] | [phone] | | | | | mellitus) | Fax: | | | | | | (HCC) | [phone] | | +--------+ + + + + [...] Office | [facility] | [facility], | Epigastric abdominal | | 2012 | Visit | GASTROENTEROLOGY | FORTUNATO Thomas [address] | pain (Primary Dx); | | | | [address] | [place], [address] | GERD | | | | [address] [place], [place] | [place], [place] | (gastroesophageal | | | | [address] | [address] | reflux disease); | | | | [phone] | | Fatty liver; DM | | [...] years ago by Dr. Saravanan Tsai, in [facility]. Colonoscopy was done 05/[address] Hamlin in [facility]. Allergies Allergen Reactions Demerol [...] | | | | | [place], [place] | | | | | | [id number] | | | | | | | [...]
--- OUTSIDE RECORDS SUMMARY | ~2019-10-22 | XMS | Encounter Summary ---
Demographics + + + | Address | [address] [facility] | | | [place] [address] | + + + | Home Phone [...] [place] | | | | | [address] | | + + + + + Care Team Providers + +------+ + | Care Metal Smelter Name | Role | Phone | + +------+ + | Natalee Andersen NP | PCP | | + +------+ + Encounter Details +--------+ + + + + | Date | Type | Department | Care Team | Description | +--------+ + + + + | 06/26/ | Hospital | [facility] | Heather Cordero PT | | | 2014 | Encounter | MED CTR ACUTE | [address] | | | | | PHYSICAL THERAPY | [place] PAIG[place] | | | | | [address] [place] | [address] | | | | | [place] [address] | | | | | | [phone] | | | +--------+ + + + [...] + + + +---------+ + + | [place]-3 Fatty | Take 1,000 mg by | [...] [place] | | | | | | [address] | | | | | | | | +--------+---------+ + + + documented as of this encounter Visit Diagnoses Not on filedocumented in this encounter"
--- OUTSIDE RECORDS SUMMARY | ~2019-10-22 | XMS | Encounter Summary ---
Demographics + + + | Address | [address] [facility] | | | [place] [address] | + + + | Home Phone [...] [place] | | | | | [address] | | + + + + + Care Team Providers + +------+ + | Care Perforator Typist Name | Role | Phone | + [...] | Transcriptions | + + | Interface, Stand Grinder In - 11/04/2006 3:03 AM PST | | [address] | | [place], [place] [address] [facility] and | | ClinicsOPERATION RECORDMed [...] skin retractor was put in place. The [place] elevators wereused to separate the | | [...]
--- OUTSIDE RECORDS SUMMARY | ~2019-10-22 | XMS | Encounter Summary ---
Demographics + + + | Address | [address] [facility] | | | [place] [address] | + + + | Home Phone [...] [place] | | | | | [address] | | + + + + + Care Team Providers + +------+ + | Care Ultimate Hoops Scoreboard Operator Name | Role | Phone | + +------+ + | Natalee Andersen NP | PCP | | + +------+ + Encounter Details +--------+ + + + + | Date | Type | Department | Care Team | Description | +--------+ + + + + | 06/25/ | Hospital | [facility] | Frandy Teresa, | Acquired | | 2014 | Encounter | MED CTR XRAY [address] | DO [address] | spondylolisthesis | | | | [place] | [address] [place], [place] | | | | | [place] [address] | [address] | | | | | [phone] | | | +--------+ + + + [...] + + + +---------+ + + | [place]-3 Fatty | Take 1,000 mg by [...] [place] | | | | | | [address] | | | | | | | | +--------+---------+ + + + documented as of this encounter Visit Diagnoses + + | Diagnosis | + + | Acquired spondylolisthesis | + + documented in this encounter"
--- OUTSIDE RECORDS SUMMARY | ~2019-10-22 | XMS | Encounter Summary ---
Demographics + + + | Address | [address] [facility] | | | [place] [address] | + + + | Home Phone [...] + + + | Author | [facility] | + + + | Organization | [facility] | + + + | Address | Unknown | + + + | Phone | Unavailable | + + + Support + + + + + | Name | Relationship | Address | Phone | + + + + + | Kelsy Bautista | ECON | [address] | | | | | [place] | | | | | [address] | | + + + + + Care Team Providers + +------+ + | Care Oracle Webcenter Consultant Name | Role | Phone | [...] | | | | | | [place], | | | | | | [place] [address] | | | | | | [phone] | | | +--------+ + + + [...] | | + +---------+ + + | [facility] DEPARTMENT OF | | | | | RADIOLOGY | | | | + +---------+ + + documented in this encounter Visit Diagnoses Not on filedocumented in this encounter"
--- OUTSIDE RECORDS SUMMARY | ~2019-10-22 | XMS | Encounter Summary ---
Demographics + + + | Address | [address] [facility] | | | [place] [address] | + + + | Home Phone [...] [place] | | | | | [address] | | + + + + + Care Team Providers + +------+ + | Care Starbucks Clerk Name | Role | Phone | + +------+ + | Natalee Andersen NP | PCP | | + +------+ + Encounter Details +--------+ + + + + | Date | Type | Department | Care Team | Description | +--------+ + + + + | 09/27/ | Hospital | [facility] | Frandy Teresa, | Lumbar spondylosis; | | 2013 | Encounter | MED CTR XRAY [address] | DO [address] | S/P lumbar fusion | | | | [place] | [address] [place], [place] | | | | | [place] [address] | [address] | | | | | [phone] | | | +--------+ + + + [...] + + + +---------+ + + | [place]-3 Fatty | Take 1,000 mg by | [...] [place] | | | | | | [address] | | | | | | | [...] + | MISCELLANEOUS LAB | | | [phone] | + +---------+ + + | MISCELANIOUS LAB | | | [phone] | + +---------+ + + documented in this encounter Visit Diagnoses + + | Diagnosis | + + | Lumbar spondylosis Lumbosacral spondylosis without myelopathy | + + | S/P lumbar fusion Arthrodesis status | + + documented in this encounter"
--- OUTSIDE RECORDS SUMMARY | ~2019-10-22 | XMS | Encounter Summary ---
Demographics + + + | Address | [address] [facility] | | | [place] [address] | + + + | Home Phone [...] [place], [place] | | | | | [address] | | + + + + + Care Team Providers + +------+ + | Care Stock Blender Name | Role | Phone | + +------+ + PCP | Unavailable | + +------+ + Encounter Details +--------+ + + + + | Date | Type | Department | Care Team | Description | +--------+ + + + + | 06/17/ | Hospital | [facility] | | | | 1991 - | Encounter | MED CTR GENERIC PSY | | | | | | CONV DEPT [address] | | | | 06/18/ | | [place], | | | | 1991 | | [place] [address] | | | | | | [phone] | | | +--------+ + + + [...] [place] | | | | | | [address] | | | | | | | | +--------+---------+ + + + documented as of this encounter Visit Diagnoses Not on filedocumented in this encounter"
--- OUTSIDE RECORDS SUMMARY | ~2019-10-22 | XMS | Clinical Summary ---
Demographics + + + | Address | [address] | | | [place] [address] | + + + | Home Phone [...] [facility] (Historical as of | | | 06-09-19) | + + + | Organization | [facility] (Historical as of | | [...] Team Providers + +------+ + | Care Medication Aid Name | Role | Phone | [...] | | Activ | | (VITAMIN D3) [id number] | a week. | | | | [...] | T2DM (type 2 diabetes mellitus) ([facility]) | 04/13/2013 | + + + Immunizations [...] +------+-------+ + | MEDICARE | MEDICA | [id number] | | | [address] | | | RE | | | | [place] [address] | | | IP-OP | | | [...] Self | [birth year] | Home: | [address] | | | al/Fam | | 1955 | [phone] | [address] [place] | | | [place]onte | | | [phone] | [phone] | + +--------+ +--------+ + +
--- OUTSIDE RECORDS SUMMARY | ~2019-10-22 | XMS | Encounter Summary ---
Demographics + + + | Address | [address] [facility] | | | [place] [address] | + + + | Home Phone [...] [place], [place] | | | | | [address] | | + + + + + Care Team Providers + +------+ + | Care Test Designer Name | Role | Phone | + +------+ + PCP | Unavailable | + +------+ + Encounter Details +--------+ + + + + | Date | Type | Department | Care Team | Description | +--------+ + + + + | 05/29/ | Hospital | [facility] | | | | 1991 | Encounter | MED CTR LABORATORY | | | | | | [address] | | | | | | [place] | | | | | | [address] | | | | | | [phone] | | | +--------+ + + + [...] | | | | [place] | | | | | | [address] | | | | | | | | +--------+---------+ + + + documented as of this encounter Visit Diagnoses Not on filedocumented in this encounter"
--- OUTSIDE RECORDS SUMMARY | ~2019-10-22 | XMS | Encounter Summary ---
Demographics + + + | Address | [address] [facility] [address] [facility] | | | [place] [address] | + + + | Home Phone [...] [place], [place] | | | | | [address] | | + + + + + Care Team Providers + +------+ + | Care Infection Control Coordinator Name | Role | Phone | + +------+ + PCP | Unavailable | + +------+ + Encounter Details +--------+ + + + + | Date | Type | Department | Care Team | Description | +--------+ + + + + | 04/16/ | [facility] | [facility] | Deon Gonzales | | | 2005 | Encounter | MED CTR SLEEP | MD Laureano [address] | | | | | YREKA [address] | [address] [place] | | | | | [place], [place] | [place] [address] | | | | | [address] | [phone] | | | | | [phone] | | | +--------+ + + + [...] [place] | | | | | | [address] | | | | | | | | +--------+---------+ + + + documented as of this encounter Visit Diagnoses Not on filedocumented in this encounter"
--- OUTSIDE RECORDS SUMMARY | ~2019-10-22 | XMS | Encounter Summary ---
Demographics + + + | Address | [address] [facility] | | | [place] [address] | + + + | Home Phone [...] [place], [place] | | | | | [address] | | + + + + + Care Team Providers + +------+ + | Care Director Of Clinical Education Name | Role | Phone | + +------+ + PCP | Unavailable | + +------+ + Encounter Details +--------+ + + + + | Date | Type | Department | Care Team | Description | +--------+ + + + + | 05/23/ | Hospital | [facility] | Dale, Heath E A, | | | 2012 | Encounter | MED CTR XRAY [address] | MD [address] | | | | | [place] | [place] | | | | | [place] [address] | [address] | | | | | [phone] | | | +--------+ + + + [...] + + + +---------+ + + | [place]-3 Fatty | Take 1,000 mg by | [...] [place] | | | | | | [address] | | | | | | | [...] [facility] Department | [facility] | | [address] [facility] | [facility] | | LUMBAR SPINE MR WITHOUT CONTRAST, [...] Transcribed Date/Time: | | | 05/23/2012 16:55 Policy Advisor: <Electronically Signed | | | by Adriano Anne MD> 05/23/12 [id number] | | + + + + + | Procedure Note | + + | Manohar Martinez Conversion - 11/30/2013 5:[address] [facility] | | Diagnostic Imaging Department [address] [facility] [place] | | LUMBAR SPINE MR WITHOUT CONTRAST, [...] 16:37 | |Transcribed Date/Time: 05/23/2012 16:55 | |Policy Advisor: | |<Electronically Signed by Adriano Anne MD> [...]
--- OUTSIDE RECORDS SUMMARY | ~2019-10-22 | XMS | Encounter Summary ---
Demographics + + + | Address | [address] [facility] | | | [place] [address] | + + + | Home Phone [...] [place], [place] | | | | | [address] | | + + + + + Care Team Providers + +------+ + | Care Sales Executive Insurance Name | Role | Phone | + +------+ + PCP | Unavailable | + +------+ + Encounter Details +--------+ + + + + | Date | Type | Department | Care Team | Description | +--------+ + + + + | 06/30/ | Hospital | [facility] | | | | 2000 | Encounter | MED CTR EMERGENCY | | | | | | [place] | | | | | | [place] | | | | | | [address] | | | | | | [phone] | | | +--------+ + + + [...] | | | | | [place] | | | | | | [id number] | | | | | | | | +--------+---------+ + + + documented as of this encounter Visit Diagnoses Not on filedocumented in this encounter"
--- OUTSIDE RECORDS SUMMARY | ~2019-10-22 | XMS | Encounter Summary ---
Demographics + + + | Address | [address] [facility] | | | [place] [address] | + + + | Home Phone [...] [place] | | | | | [address] | | + + + + + Care Team Providers + +------+ + | Care Assembly And Packing Supervisor Name | Role | Phone | [...] + + | 08/15/ | Documentati | [facility] | Katharine Moncada, | Other (urgent | | 2019 | on | CARDIOLOGY [place] | Technologist | report) | | | | [address] | | | | | | [place] | | | | | | [address] | | | | | | [phone] | | | +--------+ + + + [...] [place] | | | | | | [address] | | | | | | | | +--------+---------+ + + + documented as of this encounter Visit Diagnoses Not on filedocumented in this encounter"
--- OUTSIDE RECORDS SUMMARY | ~2019-10-22 | XMS | Encounter Summary ---
Demographics + + + | Address | [address] [facility] | | | [place] [address] | + + + | Home Phone [...] [place] | | | | | [address] | | + + + + + Care Team Providers + +------+ + | Care Dish Network Installer Name | Role | Phone | [...] | Transcriptions | + + | Interface, Customer Care Associate In - 11/04/2006 3:03 AM PST | | [address] | | [place], [place] [address] [facility] and | | ClinicsOPERATION RECORDMed Rec No.: [...] skin retractor was put in place. The [place] elevators wereused to separate the | | [...]
--- OUTSIDE RECORDS SUMMARY | ~2019-10-22 | XMS | Encounter Summary ---
Demographics + + + | Address | [address] [facility] | | | [place] [address] | + + + | Home Phone [...] [place], [place] | | | | | [address] | | + + + + + Care Team Providers + +------+ + | Care Setter Induction Heating Equipment Name | Role | Phone | + +------+ + PCP | Unavailable | + +------+ + Encounter Details +--------+ + + + + | Date | Type | Department | Care Team | Description | +--------+ + + + + | 05/23/ | Hospital | [facility] | | | | 1991 | Encounter | MED CTR XRAY [address] | | | | | | [place] | | | | | | [place] [address] | | | | | | [phone] | | | +--------+ + + + [...] | | | | | [place] | | | | | | [address] | | | | | | | | +--------+---------+ + + + documented as of this encounter Visit Diagnoses Not on filedocumented in this encounter"
--- OUTSIDE RECORDS SUMMARY | ~2019-10-22 | XMS | Encounter Summary ---
Demographics + + + | Address | [address] [facility] | | | [place] [address] | + + + | Home Phone [...] [place], [place] | | | | | [address] | | + + + + + Care Team Providers + +------+ + | Care Monitor Tech Name | Role | Phone | + +------+ + PCP | Unavailable | + +------+ + Encounter Details +--------+ + + + + | Date | Type | Department | Care Team | Description | +--------+ + + + + | 06/07/ | Hospital | [facility] | | | | 1991 - | Encounter | MED CTR GENERIC OP | | | | | | CONV DEPT [address] | | | | 10/07/ | | [place], | | | | 1991 | | [place] [address] | | | | | | [phone] | | | +--------+ + + + [...] [place] | | | | | | [address] | | | | | | | | +--------+---------+ + + + documented as of this encounter Visit Diagnoses Not on filedocumented in this encounter"
--- OUTSIDE RECORDS SUMMARY | ~2019-10-22 | XMS | Encounter Summary ---
Demographics + + + | Address | [address] [facility] | | | [place] [address] | + + + | Home Phone [...] [place], [place] | | | | | [address] | | + + + + + Care Team Providers + +------+ + | Care Zyglo Inspector Name | Role | Phone | + +------+ + PCP | Unavailable | + +------+ + Encounter Details +--------+ + + + + | Date | Type | Department | Care Team | Description | +--------+ + + + + | 03/26/ | Hospital | [facility] | | | | 2001 | Encounter | MED CTR LABORATORY | | | | | | [address] | | | | | | [place] | | | | | | [address] | | | | | | [phone] | | | +--------+ + + + [...] | | | | | [place] | | | | | | [address] | | | | | | | | +--------+---------+ + + + documented as of this encounter Visit Diagnoses Not on filedocumented in this encounter"
--- OUTSIDE RECORDS SUMMARY | ~2019-10-22 | XMS | Encounter Summary ---
Demographics + + + | Address | [address] [facility] | | | [place] [address] | + + + | Home Phone [...] [place] | | | | | [address] | | + + + + + Care Team Providers + +------+ + | Care Oil Burner Installer Name | Role | Phone | [...] + + | 02/01/ | Telephone | [facility] | Frandy Teresa, | Imaging Only | | 2019 | | NEUROSURGERY [address] | DO [address] | | | | | [address] [place] [address] | [address] [address] [place], [place] | | | | | [place], [place] | [address] | | | | | [address] | | | | | | [phone] | | | +--------+ + + + [...] [place] | | | | | | [address] | | | | | | | | +--------+---------+ + + + documented as of this encounter Visit Diagnoses Not on filedocumented in this encounter"
--- OUTSIDE RECORDS SUMMARY | ~2019-10-22 | XMS | Encounter Summary ---
Demographics + + + | Address | [address] [facility] | | | [place] [address] | + + + | Home Phone [...] [place] | | | | | [address] | | + + + + + Care Team Providers + +------+ + | Care Rn Physician Office Name | Role | Phone | [...] [place] | | | | | | [address] | | | | | | [phone] | | | +--------+ + + + [...] [place] | | | | | | [address] | | | | | | | | +--------+---------+ + + + documented as of this encounter Visit Diagnoses Not on filedocumented in this encounter"
--- OUTSIDE RECORDS SUMMARY | ~2019-10-22 | XMS | Encounter Summary ---
Demographics + + + | Address | [address] [facility] | | | [place] [address] | + + + | Home Phone [...] [place] | | | | | [address] | | + + + + + Care Team Providers + +------+ + | Care Instructor Industrial Design Name | Role | Phone | + [...] + + | 07/24/ | Telephone | [facility] | Ashley Chávez | Other (Patient is | | 2019 | | CARDIOLOGY [place] Abad, Sealing And Canceling Machine Operator | worried about paying | | | | [address] | | for monitor. ) | | | | [place] | | | | | | [address] | | | | | | [phone] | | | +--------+ + + + [...] [place] | | | | | | [address] | | | | | | | | +--------+---------+ + + + documented as of this encounter Visit Diagnoses Not on filedocumented in this encounter"
--- OUTSIDE RECORDS SUMMARY | ~2019-10-22 | XMS | Encounter Summary ---
Demographics + + + | Address | [address] [facility] | | | [place] [address] | + + + | Home Phone [...] [place] | | | | | [address] | | + + + + + Care Team Providers + +------+ + | Care Automobile Body Worker Name | Role | Phone [...] | | | | | [address] | [place], [place] | | | | | [place], [place] | [address] | | | | | [address] | | | | | | [phone] | | | +--------+ + + + [...] [place] | | | | | | [address] | | | | | | | | +--------+---------+ + + + documented as of this encounter Visit Diagnoses Not on filedocumented in this encounter"
--- OUTSIDE RECORDS SUMMARY | ~2019-10-22 | XMS | Encounter Summary ---
Demographics + + + | Address | [address] [facility] | | | [place] [address] | + + + | Home Phone [...] [place] | | | | | [address] | | + + + + + Care Team Providers + +------+ + | Care Servicing Rep Name | Role | Phone | [...] + | 02/26/ | Emergency | [facility] | [place], | CVA (cerebral | | 2015 | | MED CTR EMERGENCY | Davey Simons MD [address] | vascular accident) | | | | CENTER [address] | [address] [facility] | ([facility]) (Primary Dx) | | | | [place], [place] | [place] [address] | | | | | [address] | [phone] | | | | | [phone] | | | +--------+ + + + [...] + + + +---------+ + + | [place]-3 Fatty | Take 1,000 mg by | [...] | | | | [place] | | | | | | [address] | | | | | | | [...] mL/min/1.73m2 | [facility] | | | [facility] | RATE,ESTIMATED | | MEDICAL | | | | mL/min/1.74e1Hfxo than | | CENTER - | | [...] | 9.1 | 8.3 - 10.5 | [facility] | | | | | mg/dL [...] [address] | [place] | [phone] | | [facility] | | [address] | | | - LABORATORY | | [...] [address] | [place] | [phone] | | [facility] | | [address] | | | - LABORATORY | | [...] | ---- | | | 02/26/2015 13:10 [facility] | | | Emergency -numbness/facial droop 02/26/2015 08:15 [facility] | | | Ur[facility] 02/19/2015 | | | 10:15 [...] status 02/06/2015 10:46 | | | [facility] | | | -Generalized pain [...] ------ | | | --------- [address] | | | [facility] [address] | | | [facility] 7 0 Total | | | Note: Visits indicate total known visits. Medicaid [place] Dx are the | | | number of primary diagnoses on the [facility]'s non-emergent dx list. | | [...]
--- OUTSIDE RECORDS SUMMARY | ~2019-10-22 | XMS | Encounter Summary ---
Demographics + + + | Address | [address] [facility] | | | [place] [address] | + + + | Home Phone [...] [place], [place] | | | | | [address] | | + + + + + Care Team Providers + +------+ + | Care Cigarette Lighter Repairer Name | Role | Phone | + +------+ + PCP | Unavailable | + +------+ + Encounter Details +--------+ + + + + | Date | Type | Department | Care Team | Description | +--------+ + + + + | 08/21/ | Hospital | [facility] | | | | 1996 | Encounter | MED CTR LABORATORY | | | | | | [address] | | | | | | [place] | | | | | | [address] | | | | | | [phone] | | | +--------+ + + + [...] | | | | | [place] | | | | | | [address] | | | | | | | | +--------+---------+ + + + documented as of this encounter Visit Diagnoses Not on filedocumented in this encounter"
--- OUTSIDE RECORDS SUMMARY | ~2019-10-22 | XMS | Encounter Summary ---
Demographics + + + | Address | [address] [facility] | | | [place] [address] | + + + | Home Phone [...] [place], [place] | | | | | [address] | | + + + + + Care Team Providers + +------+ + | Care Apparel Trimmings Sales Representative Name | Role | Phone | + +------+ + PCP | Unavailable | + +------+ + Encounter Details +--------+ + + + + | Date | Type | Department | Care Team | Description | +--------+ + + + + | 10/29/ | Hospital | [facility] | | | | 1994 | Encounter | MED CTR LABORATORY | | | | | | [address] | | | | | | [place] | | | | | | [address] | | | | | | [phone] | | | +--------+ + + + [...] | | | | | [place] | | | | | | [address] | | | | | | | | +--------+---------+ + + + documented as of this encounter Visit Diagnoses Not on filedocumented in this encounter"
--- OUTSIDE RECORDS SUMMARY | ~2019-10-22 | XMS | Encounter Summary ---
Demographics + + + | Address | [address] [facility] | | | [place] [address] | + + + | Home Phone [...] [place] | | | | | [address] | | + + + + + Care Team Providers + +------+ + | Care Neurobiologist Name | Role | Phone | + +------+ + | Natalee Andersen NP | PCP | | + +------+ + Encounter Details +--------+ + + + + | Date | Type | Department | Care Team | Description | +--------+ + + + + | 05/02/ | Hospital | [facility] | Frandy Teresa, | Back pain | | 2014 | Encounter | MED CTR XRAY [address] | DO [address] | | | | | [place] | [place] [address] [place] | | | | | [place] [address] | [address] | | | | | [phone] | | | +--------+ + + + [...] + + +---------+ + + | [place]-3 Fatty | Take 1,000 mg by | [...] | | | | | [place] | | | | | | [address] | | | | | | | [...] + | MISCELLANEOUS LAB | | | [phone] | + +---------+ + + | MISCELANIOUS LAB | | | [phone] | + +---------+ + + documented in this encounter Visit Diagnoses + + | Diagnosis | + + | Back pain Backache, unspecified | + + documented in this encounter"
--- OUTSIDE RECORDS SUMMARY | ~2019-10-22 | XMS | Encounter Summary ---
Demographics + + + | Address | [address] [facility] | | | [place] [address] | + + + | Home Phone [...] [place], [place] | | | | | [address] | | + + + + + Care Team Providers + +------+ + | Care Manager Clinical Name | Role | Phone | + +------+ + PCP | Unavailable | + +------+ + Encounter Details +--------+ + + + + | Date | Type | Department | Care Team | Description | +--------+ + + + + | 01/26/ | Hospital | [facility] | Dale, Heath E A, | | | 2012 | Encounter | MED CTR XRAY [address] | MD [address] | | | | | [place] | [place] | | | | | [place] [address] | [address] | | | | | [phone] | | | +--------+ + + + [...] [place] | | | | | | [address] | | | | | | | [...] [facility] | [facility] | | [address] [facility] | [facility] | | BILATERAL KNEES, THREE VIEWS: [...] Transcribed | | | Date/Time: 01/27/2012 17:18 Radio Interference Trouble Shooter: | | | <Electronically Signed by Willie Perry MD> 01/27/12 1914 | | + + + + + | Procedure Note | + + | Juan, Rad Conversion - 11/30/2013 5:03 PM [facility] | | Diagnostic Imaging Department [address] [place] [address] | | BILATERAL KNEES, THREE VIEWS: 01/27/2012 [...] 17:12 | |Transcribed Date/Time: 01/27/2012 17:18 | |Radio Interference Trouble Shooter: | |<Electronically Signed by Willie Perry MD> 01/27/12 044 | + + + +---------+ + + [...]
--- OUTSIDE RECORDS SUMMARY | ~2019-10-22 | XMS | Encounter Summary ---
Demographics + + + | Address | [address] [facility] | | | [place] [address] | + + + | Home Phone [...] [place] | | | | | [address] | | + + + + + Care Team Providers + +------+ + | Care Window Unit Air Conditioning Mechanic Name | Role | [...] [facility] | Ashley Chávez | Talia (Patient | | 2019 | | CARDIOLOGY [place] Abad, Stamp Analyst | calling to be seen | | | | [address] | | ) | | | | [place] | | | | | | [address] | | | | | | [phone] | | | +--------+ + + + [...] [place] | | | | | | [address] | | | | | | | | +--------+---------+ + + + documented as of this encounter Visit Diagnoses Not on filedocumented in this encounter"
--- OUTSIDE RECORDS SUMMARY | ~2019-10-22 | XMS | Encounter Summary ---
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 ) | | | | [place] | | | | | | [address] | | | | | | [phone] | | | +--------+ + + + [...] [place] | | | | | | [address] | | | | | | | | +--------+---------+ + + + documented as of this encounter Visit Diagnoses Not on filedocumented in this encounter"
--- OUTSIDE RECORDS SUMMARY | ~2019-10-22 | XMS | Encounter Summary ---
Demographics + + + | Address | [address] [facility] | | | [place] [address] | + + + | Home Phone [...] [place] | | | | | [address] | | + + + + + Care Team Providers + +------+ + | Care Station Engineer Chief Name | Role | Phone | [...] + + | 08/24/ | Documentati | [facility] | Katharine Moncada, | Other (urgent | | 2019 | on | CARDIOLOGY [place] | Technologist | report) | | | | [address] | | | | | | [place] | | | | | | [address] | | | | | | [phone] | | | +--------+ + + + [...]
--- OUTSIDE RECORDS SUMMARY | ~2019-10-22 | XMS | Encounter Summary ---
Demographics + + + | Address | [address] [facility] | | | [place] [address] | + + + | Home Phone [...] [place] | | | | | [address] | | + + + + + Care Team Providers + +------+ + | Care End Maker Name | Role | Phone | [...] [place] | | | | | | [address] | | | | | | [phone] | | | +--------+ + + + [...] | Desriee Peterson DO | | | 2020 | Visit | | [address] | | | | | | [place] | | | | | | [address] | | | | | | | | +--------+---------+ + + + documented as of this encounter Visit Diagnoses Not on filedocumented in this encounter"
--- OUTSIDE RECORDS SUMMARY | ~2019-10-22 | XMS | Encounter Summary ---
Demographics + + + | Address | [address] [facility] | | | [place] [address] | + + + | Home Phone [...] [place] | | | | | [address] | | + + + + + Care Team Providers + +------+ + | Care Stunt Double Name | Role | Phone | + [...] | | [address] | [place], [place] | | | | | [place], [place] | [address] | | | | | [address] | | | | | | [phone] | | | +--------+ + + + [...] | | | | | [place] | | | | | | [address] | | | | | | | [...] 0.83 m/s | | | MV Dec [place]: 2.85 m/s2 MV DecT: 282.89 ms MV E [place]: 0.80 | | | m/s MV E/A Ratio: 0.96 E/E' Sept: 12.59 E' Lat: 0.08 m/s | | | E' Sept: 0.06 m/s RAP: 10 mmHg RV S': 0.11 m/s RVSP: | | | 27.96 mmHg TR maxP.96 mmHg TR Vmax: 2.11 m/s | | | Solderer Barrel Ribs: Authenticated by: Desiree Peterson MD Report Date/Time: | | | -- [id number]:[id number] | | + + + + + [...] (A-L): 19.60 | | ml/m2LAAs A2C: 15.44 [id number] A-L A2C: 43.84 mlLAESV MOD A2C: 42.12 mlLALs A2C: | | 4.61 cmLAAs A4C: 14.18 [id number] A-L A4C: 38.73 mlLAESV MOD A4C: 37.04 mlLALs A4C: | | 4.41 cmRAAs: 12.15 [id number] A-L: 28.54 mlRAESV MOD: 28.66 mlRALs: 4.39 | | cmTAPSE: 2.42 cmAV Env.Ti: 293.94 msAV maxP.18 mmHgAV meanP.09 mmHgAV | | Vmax: 1.88 m/Eddie Vmean: 1.25 m/Eddie VTI: 36.84 cmAVA Vmax: 2.06 cm2AVA (VTI): | | 2.24 mp2KZQU Vmax: 0.00 cm2/m2AVAI (VTI): 0.00 cm2/m2LVOT Env.Ti: 299.59 msLVOT | | maxP.52 mmHgLVOT meanP.65 mmHgLVSI Dopp: 38.55 ml/m2LVSV Dopp: 82.89 | | mlLVOT Vmax: 1.27 m/sLVOT Vmean: 0.91 m/sLVOT VTI: 27.27 cmMV A Teodoro: 0.83 m/sMV | | Dec [place]: 2.85 m/s2MV DecT: 282.89 msMV E [place]: 0.80 m/sMV E/A Ratio: 0.96E/E' | | Sept: 12.59E' Lat: 0.08 m/sE' Sept: 0.06 m/sRAP: 10 mmHgRV S': 0.11 m/sRVSP: | | 27.96 mmHgTR maxP.96 mmHgTR Vmax: 2.11 m/s Solderer Barrel Ribs:Authenticated by: | | Desiree Peterson MDReport Date/Time: -- [id number]:[id number] IMPRESSION: 1. Overall left | | ventricular [...] A [place]: 0.83 m/s | |MV Dec [place]: 2.85 m/s2 | |MV DecT: 282.89 ms | |MV E [place]: 0.80 m/s | |MV E/A Ratio: 0.96 | |E/E' Sept: 12.59 | |E' Lat: 0.08 m/s | |E' Sept: 0.06 m/s | |RAP: 10 mmHg | |RV S': 0.11 m/s | |RVSP: 27.96 mmHg | |TR maxP.96 mmHg | |TR Vmax: 2.11 m/s | | | |Solderer Barrel Ribs: | |Authenticated by: Desiree Peterson MD | |Report Date/Time: -- [id number] | | | |IMPRESSION: | |1. Overall [...]
--- OUTSIDE RECORDS SUMMARY | ~2019-10-22 | XMS | Encounter Summary ---
Demographics + + + | Address | [address] [facility] | | | [place] [address] | + + + | Home Phone [...] [place], [place] | | | | | [address] | | + + + + + Care Team Providers + +------+ + | Care [employer] Name | Role | Phone | + +------+ + PCP | Unavailable | + +------+ + Encounter Details +--------+ + + + + | Date | Type | Department | Care Team | Description | +--------+ + + + + | 02/24/ | Hospital | [facility] | | | | 1997 - | Encounter | MED [facility] GENER[facility]Y | | | | | | CONV DEPT [address] | | | | 02/26/ | | [place], | | | | 1997 | | [place] [address] | | | | | | [phone] | | | +--------+ + + + [...] [place] | | | | | | [address] | | | | | | | | +--------+---------+ + + + documented as of this encounter Visit Diagnoses Not on filedocumented in this encounter"
--- OUTSIDE RECORDS SUMMARY | ~2019-10-22 | XMS | Encounter Summary ---
Demographics + + + | Address | [address] [facility] [address] | | | [place] [address] | + + + | Home Phone [...] [place], [place] | | | | | [address] | | + + + + + Care Team Providers + +------+ + | Care Cognos Consultant Name | Role | Phone | + +------+ + PCP | Unavailable | + +------+ + Encounter Details +--------+ + + + + | Date | Type | Department | Care Team | Description | +--------+ + + + + | 05/29/ | Hospital | [facility] | | | | 1991 | Encounter | MED CTR LABORATORY | | | | | | [address] | | | | | | [place] | | | | | | [address] | | | | | | [phone] | | | +--------+ + + + [...] | | | | | [place] | | | | | | [address] | | | | | | | | +--------+---------+ + + + documented as of this encounter Visit Diagnoses Not on filedocumented in this encounter"
--- OUTSIDE RECORDS SUMMARY | ~2019-10-22 | XMS | Encounter Summary ---
Demographics + + + | Address | [address] [facility] | | | [place] [address] | + + + | Home Phone [...] [place] | | | | | [address] | | + + + + + Care Team Providers + +------+ + | Care Solar Energy Specialist Name | Role | Phone | + +------+ + | Natalee Andersen NP | PCP | | + +------+ + Encounter Details +--------+---------+ + + + | Date | Type | Department | Care Team | Description | +--------+---------+ + + + | 06/25/ | Surgery | [facility] | Frandy Teresa, | Canceled | | 2013 | | MED CTR OR INTRA OP | DO [address] | PROCEDURE NOT | | | | [address] | [address] [place], [place] | PERFORMED | | | | [place], [place] | [address] | | | | | [address] | | | | | | [phone] | | | +--------+---------+ + + + [...] + + + +---------+ + + | [place]-3 Fatty | Take 1,000 mg by | [...] | | | | | [place], [place] | | | | | | [id number] | | | | | | | [...] mL/min/1.73m2 | [facility] | | | [facility] | RATE,ESTIMATED | | MEDICAL | | | | mL/min/1.52m1Lebp than | | CENTER - | | [...] + | [facility] | [address] | [place] | [phone] | | [facility] | | [address] | | | - LABORATORY | | | | + + + + + | [facility] | [address] | [place] | | | [facility] | | [address] | | | - LABORATORY | | [...] + | [facility] | [address] | [place] | [phone] | | [facility] | | [address] | | | - LABORATORY | | | | + + + + + | [facility] | [address] | [place] | | | [facility] | | [address] | | | - LABORATORY | | [...] [address] | [place] | [phone] | | [facility] | | [address] | | | - LABORATORY | | | | + + + + + | [facility] | [address] | [place], [place] | | | [facility] | | [address] | | | - LABORATORY | | [...] | [facility] | | [address] | | | - BLOOD BANK | [...] + | [facility] | [address] | [place], [place] | [phone] | | [facility] | | [address] | | | - LABORATORY | | | | + + + + + | [facility] | [address] | [place], [place] | | | [facility] [...]
--- OUTSIDE RECORDS SUMMARY | ~2019-10-22 | XMS | Encounter Summary ---
Demographics + + + | Address | [address] [facility] | | | [place] [address] | + + + | Home Phone [...] [place], [place] | | | | | [address] | | + + + + + Care Team Providers + +------+ + | Care Ad Copy Writer Name | Role | Phone | + +------+ + PCP | Unavailable | + +------+ + Encounter Details +--------+ + + + + | Date | Type | Department | Care Team | Description | +--------+ + + + + | 02/22/ | Hospital | [facility] | | | | 1996 - | Encounter | MED CTR GENERIC PSY | | | | | | CONV DEPT [address] | | | | 02/26/ | | [address], | | | | 1996 | | [place] [address] | | | | | | [phone] | | | +--------+ + + + [...] [place] | | | | | | [address] | | | | | | | | +--------+---------+ + + + documented as of this encounter Visit Diagnoses Not on filedocumented in this encounter"
--- OUTSIDE RECORDS SUMMARY | ~2019-10-22 | XMS | Encounter Summary ---
Demographics + + + | Address | [address] [facility] [address] | | | [place] [address] | + + + | Home Phone [...] [place], [place] | | | | | [address] | | + + + + + Care Team Providers + +------+ + | Care Refrigeration System Installer Name | Role | Phone | + +------+ + PCP | Unavailable | + +------+ + Encounter Details +--------+ + + + + | Date | Type | Department | Care Team | Description | +--------+ + + + + | 01/25/ | Hospital | [facility] | | | | 2002 | Encounter | MED CTR XRAY [address] | | | | | | [address] | | | | | | [place] [address] | | | | | | [phone] | | | +--------+ + + + [...] | | | | | [place] | | | | | | [address] | | | | | | | | +--------+---------+ + + + documented as of this encounter Visit Diagnoses Not on filedocumented in this encounter"
--- OUTSIDE RECORDS SUMMARY | ~2019-10-22 | XMS | Encounter Summary ---
Demographics + + + | Address | [address] [facility] | | | [place] [address] | + + + | Home Phone [...] [place] | | | | | [address] | | + + + + + Care Team Providers + +------+ + | Care Telephone Diaphragm Assembler Name | Role | Phone | [...] [place] | | | | | | [address] | | | | | | [phone] | | | +--------+ + + + [...] [place] | | | | | | [address] | | | | | | | | +--------+---------+ + + + documented as of this encounter Visit Diagnoses Not on filedocumented in this encounter"
--- OUTSIDE RECORDS SUMMARY | ~2019-10-22 | XMS | Clinical Summary ---
Demographics + + + | Address | [address] | | | [place] [address] | + + + | Home Phone [...] [place] | | | | | [address] | | + + + + + Care Team Providers + +------+ + | Care Jig Builder Name | Role | Phone | [...] | | Activ | | (VITAMIN D-3) [id number] | mouth Once a week. | | [...] | | | | | ([facility]) | | | | | | | [...] | | | | e | | (VoluBill VERIO FLEX | | | | | [...] | 2018 | | | D, Electrical Instrument Maker | calling to be seen | | [...] | 2018 | | | D, Electrical Instrument Maker | to take monitor | | | | | | off. ) | +--------+ + + + + | 08/28/ | Telephone | Cardiology | Ashley Chávez | Other (Patient has | | 2018 | | | D, Electrical Instrument Maker | questions about | | | [...] | 08/16/ | Telephone | Cardiology | Aslhey Chávez | Other (Called to | 2018 | | | Pollo, Electrical Instrument Maker | tell patient what Dr | [...] | 2019 | | | D, Electrical Instrument Maker | anxious about urgent | | [...] | 2018 | | | D, Electrical Instrument Maker | about coverage. ) | +--------+ + + + + | 07/30/ | Telephone | Cardiology | Ashley Chávez | Other (Patient | | 2018 | | | D, Electrical Instrument Maker | concerns ) | +--------+ + + + + | 07/24/ | Telephone | Cardiology | Ashley Chávez | Other (Patient is | | 2018 | | | D, Electrical Instrument Maker | worried about paying | | [...] [place] | | | | | | [address] | | | | | | | [...] | [employer] - | | 04/02/ | [id number] | | 5ccImplanted: Qty: 1 on | | Spine | MEDT | | 2019 | | | 07/02/2014 by Frandy Teresa | | Lumbar | | | | /[id number] | | A, DO at [facility] | | | | | | 6-020 | | [facility] | | | | | | / | + +------+--------+ +--------+--------+--------+ | Graft Infuse Bone Kit Xxs - | | N/A: | SOFAMOR | | 01/21/ | [id number] | | [id number]: Qty: 1 on | | Spine | DANEK - DIV | | 2014 | 0 / | | 07/02/2014 by Frandy Teresa | | Lumbar | [employer] | | | /[id number] | | A, DO at [facility] | | | - SFDK | | | 06AAH | | [facility] | | | | | | | + +------+--------+ +--------+--------+--------+ | Imp Spn Spcr Cpstn 8x26mm - | | N/A: | SOFAMOR | | 01/11/ | [id number] | | [id number]: Qty: 1 on | | Spine | DANEK - DIV | | 2021 | 6 / | | 07/02/2014 by Frandy Teresa | | Lumbar | [employer] | | | /[id number] | | DO Ronak at [facility] | | | - SFDK | | | 928 | | [facility] | | | | | | | + +------+--------+ +--------+--------+--------+ | Set Scrw Ns G5 Brk Off Ti | | N/A: | SOFAMOR | | | [id number] | | 4.75 - [id number]: | | Spine | DANEK - DIV | | | 0 / / | | Qty: 4 on 07/02/2014 by | | Lumbar | [employer] | | | | | Frandy Teresa DO at [facility] | | | - SFDK | | | | | [facility] | | | | | | | | [facility] | | | | | | | + +------+--------+ +--------+--------+--------+ | RodImplanted: Qty: 1 on | | N/A: | | | | [id number] | | 07/02/2014 by Frandy Teresa | | Spine | | | | 540 / | | DO Ronak at [facility] | | Lumbar | | | | / | | [facility] | | | | | | | + +------+--------+ +--------+--------+--------+ | RodImplanted: Qty: 1 on | | N/A: | MEDTROL - | | | [id number] | | 07/02/2014 by Frandy Tersea | | Spine | MDTR | | | 545 / | | DO Ronak at [facility] | | Lumbar | | | | / | | [facility] | | | | | | | + +------+--------+ +--------+--------+--------+ | Screw 7.5x50mm Sextant - | | N/A: | [employer] - | | | [id number] | | [id number]: Qty: 1 on | | Spine | MEDT | | | [id number] | | 07/02/2014 by Frandy Teresa | | Lumbar | | | | / / | | DO Ronak at [facility] | | | | | | | | [facility] | | | | | | | + +------+--------+ +--------+--------+--------+ | Cannulated ScrewImplanted: | | N/A: | MEDTROL - | | | [id number] | | Qty: 1 on 07/02/2014 by | | Spine | MDTR | | | [id number] | | Frandy Teresa DO at [facility] | | Lumbar | | | | / / | | [facility] | [facility] | | | | | | | + +------+--------+ +--------+--------+--------+ | Cannulated ScrewImplanted: | | N/A: | MEDTRONIC - | | | [id number] | | Qty: 1 on 07/02/2014 by | | Spine | MEDT | | | [id number] | | Frandy Teresa DO at [facility] | | Lumbar | | | | / / | | [facility] | | | | | | | | [facility] | | | | | | | [...] +--------+ +---------+--------+ | MEDICARE | MEDICA | [id number] | 02/22/20 | [phone] | | Medica | | | RE | | 09-Pre | 5 | | re | | | PART A | | sent | | | | | | AND B | | | | | | + +--------+ +--------+ +---------+--------+ | MEDICARE | MEDICA | [id number] | 02/22/20 | [phone] | | Medica [...] [place] | | | 1 (Home) | [address] | + +--------+ +--------+ + + | Cindy Arndt L | Person | Self | [birth year] | [address] | | | al/Fam | | 1955 | [phone] | [address] [place], [place] | | | [place] | | | 1 (Home) | [address] | + +--------+ +--------+ + + Advance Directives + + + + + | Type | Date Recorded | Patient | Explanation | | | | Oracle Database Developer | | + + + + + | Power of | | | | | Magnetic Tape Winder | | | | + + + [...]
--- OUTSIDE RECORDS SUMMARY | ~2019-10-22 | XMS | Encounter Summary ---
Demographics + + + | Address | [address] [facility] | | | [place] [address] | + + + | Home Phone [...] [place] | | | | | [address] | | + + + + + Care Team Providers + +------+ + | Care Speck Dyer Name | Role | Phone | [...] + + | 08/30/ | Telephone | [facility] | Ashley Chávez | Other (Patient wants | | 2019 | | CARDIOLOGY [place] | Pollo, Conduit Mechanic | to take monitor | | | | [address] | | off. ) | | | | [address] | | | | | | [place] | | | | | | [address] | | | | | | [phone] | | | +--------+ + + + [...] [place] | | | | | | [address] | | | | | | | | +--------+---------+ + + + documented as of this encounter Visit Diagnoses Not on filedocumented in this encounter"
--- OUTSIDE RECORDS SUMMARY | ~2019-10-22 | XMS | Encounter Summary ---
Demographics + + + | Address | [address] [facility] | | | [place] [address] | + + + | Home Phone [...] [place], [place] | | | | | [address] | | + + + + + Care Team Providers + +------+ + | Care Cement Sprayer Helper Name | Role | Phone | + +------+ + PCP | Unavailable | + +------+ + Encounter Details +--------+ + + + + | Date | Type | Department | Care Team | Description | +--------+ + + + + | 04/01/ | Hospital | [facility] | | | | 1998 | Encounter | MED CTR XRAY [address] | | | | | | [address] | | | | | | [place] [address] | | | | | | [phone] | | | +--------+ + + + [...] | | | | | [place] | | | | | | [address] | | | | | | | | +--------+---------+ + + + documented as of this encounter Visit Diagnoses Not on filedocumented in this encounter"
--- OUTSIDE RECORDS SUMMARY | ~2019-10-22 | XMS | Encounter Summary ---
Demographics + + + | Address | [address] [facility] | | | [place] [address] | + + + | Home Phone [...] [place] | | | | | [address] | | + + + + + [...] + | 08/26/ | Refill | [facility] | Frandy Teresa, | Medication Refill | | 2013 | | NEUROSURGERY [address] | DO [address] | | | | | [address] | [address] [place], [place] | | | | | [place], [place] | [address] | | | | | [address] | | | | | | [phone] | | | +--------+--------+ + + + [...] | | | | | [place] | | | | | | [address] | | | | | | | | +--------+---------+ + + + documented as of this encounter Visit Diagnoses Not on filedocumented in this encounter"
--- OUTSIDE RECORDS SUMMARY | ~2019-10-22 | XMS | Encounter Summary ---
Demographics + + + | Address | [address] [address] [facility] | | | [place] [address] | + + + | Home Phone [...] [place] | | | | | [address] | | + + + + + Care Team Providers + +------+ + | Care Emergency Room Nurse Name | Role | Phone | [...] + + | 08/13/ | Documentati | [facility] | Katharine Moncada, | Other (urgent | | 2019 | on | CARDIOLOGY [place] | Technologist | report) | | | | [address] | | | | | | [place] | | | | | | [address] | | | | | | [phone] | | | +--------+ + + + [...] [place] | | | | | | [address] | | | | | | | | +--------+---------+ + + + documented as of this encounter Visit Diagnoses Not on filedocumented in this encounter"
--- OUTSIDE RECORDS SUMMARY | ~2019-10-22 | XMS | Encounter Summary ---
Demographics + + + | Address | [address] [facility] | | | [place] [address] | + + + | Home Phone [...] [place] | | | | | [address] | | + + + + + [...] 50 | [address] [place], [place] | | | | | [place], [place] | [address] | | | | | [address] | | | | | | [phone] | | | +--------+ + + + [...] [place] | | | | | | [address] | | | | | | | [...] + | MISCELLANEOUS LAB | | | [phone] | + +---------+ + + | MISCELANIOUS LAB | | | [phone] | + +---------+ + + documented in this encounter Visit Diagnoses + + | Diagnosis | + + | Back pain - Primary Backache, unspecified | + + documented in this encounter"
--- OUTSIDE RECORDS SUMMARY | ~2019-10-22 | XMS | Encounter Summary ---
Demographics + + + | Address | [address] [address] [facility] | | | [place] [address] | + + + | Home Phone [...] [place], [place] | | | | | [address] | | + + + + + Care Team Providers + +------+ + | Care Accounting Lecturer Name | Role | Phone | + +------+ + PCP | Unavailable | + +------+ + Encounter Details +--------+ + + + + | Date | Type | Department | Care Team | Description | +--------+ + + + + | 02/24/ | Hospital | [facility] | | | | 1997 | Encounter | MED CTR EMERGENCY | | | | | | [address] | | | | | | [place] | | | | | | [address] | | | | | | [phone] | | | +--------+ + + + [...] | | | | | [place] | | | | | | [address] | | | | | | | | +--------+---------+ + + + documented as of this encounter Visit Diagnoses Not on filedocumented in this encounter"
--- OUTSIDE RECORDS SUMMARY | ~2019-10-22 | XMS | Encounter Summary ---
Demographics + + + | Address | [address] [facility] | | | [place] [address] | + + + | Home Phone [...] [place], [place] | | | | | [address] | | + + + + + Care Team Providers + +------+ + | Care Filer Finish Name | Role | Phone | + +------+ + PCP | Unavailable | + +------+ + Encounter Details +--------+ + + + + | Date | Type | Department | Care Team | Description | +--------+ + + + + | 02/22/ | Hospital | [facility] | | | | 1996 - | Encounter | MED CTR GENERIC PSY | | | | | | CONV DEPT [address] | | | | 02/26/ | | [address] [place], | | | | 1996 | | [place] [address] | | | | | | [phone] | | | +--------+ + + + [...] [place] | | | | | | [address] | | | | | | | | +--------+---------+ + + + documented as of this encounter Visit Diagnoses Not on filedocumented in this encounter"
--- OUTSIDE RECORDS SUMMARY | ~2019-10-22 | XMS | Encounter Summary ---
Demographics + + + | Address | [address] [facility] | | | [place] [address] | + + + | Home Phone [...] [place] | | | | | [address] | | + + + + + [...] + + | 07/19/ | Office | [facility] | Desiree Peterson DO | Syncope, unspecified | | 2019 | Visit | CARDIOLOGY [place] | [address] | syncope type | | | | [address] | [place], [place] | (Primary Dx); | | | | [address] [place] | [address] | Essential | | | | [place] | | hypertension; | | | | [address] | | Irregular heartbeat | | | | [phone] | | | +--------+---------+ + + + [...] DO - 07/19/2019 10:40 AM PDT [facility] Cardiology Cardiology Follow Up Note Reason [...] by mouth daily. Blood Glucose Monitoring Suppl ([employer] VERIO FLEX SYSTEM) w/Device KIT by Does not ap ply route. budesonide-formoterol (SYMBICORT) 160-4.5 MCG/ACT inhaler Inhale 2 puffs into the lungs 2 (two) times daily. Calcium Carbonate Antacid 1000 MG tablet Take 1,000 mg by mouth 3 (three) times daily. Cholecalciferol (VITAMIN D3) 47903 units CAPS Take by mouth once a [...] [place] | | | | | | [address] | | | | | | | [...]
--- OUTSIDE RECORDS SUMMARY | ~2019-10-22 | XMS | Encounter Summary ---
Demographics + + + | Address | [address] [facility] | | | [place] [address] | + + + | Home Phone [...] [place], [place] | | | | | [address] | | + + + + + Care Team Providers + +------+ + | Care Tie Presser Name | Role | Phone | + +------+ + PCP | Unavailable | + +------+ + Encounter Details +--------+ + + + + | Date | Type | Department | Care Team | Description | +--------+ + + + + | 05/23/ | Hospital | [facility] | Dale, Heath E A, | | | 2012 | Encounter | MED CTR XRAY [address] | MD [address] | | | | | [place] | [place] | | | | | [place] [address] | [address] | | | | | [phone] | | | +--------+ + + + [...] + + +---------+ + + | [place]-3 Fatty | Take 1,000 mg by [...] [place] | | | | | | [address] | | | | | | | [...] At | + + + | [facility] Diagnostic Imaging Department | [facility] | | [address] [facility] | [facility] | | LUMBAR SPINE MR [...] Transcribed Date/Time: | | | 05/23/2012 16:55 Net Fisher: <Electronically Signed | | | by Adriano Anne MD> 05/23/12 3815 | | + + + + + | Procedure Note | + + | Manohar Martinez Conversion - 11/30/2013 5:47 PM [facility] | | Diagnostic Imaging Department [address] [facility] [place] | | [...] 16:37 | |Transcribed Date/Time: 05/23/2012 16:55 | |Net Fisher: | |<Electronically Signed by Adriano Anne MD> [...]
--- OUTSIDE RECORDS SUMMARY | ~2019-10-22 | XMS | Encounter Summary ---
Demographics + + + | Address | [address] [facility] | | | [place] [address] | + + + | Home Phone [...] [place], [place] | | | | | [address] | | + + + + + Care Team Providers + +------+ + | Care Telecommunications Network Engineer Name | Role | Phone | + +------+ + PCP | Unavailable | + +------+ + Encounter Details +--------+ + + + + | Date | Type | Department | Care Team | Description | +--------+ + + + + | 01/06/ | Hospital | [facility] | | | | 1992 | Encounter | MED CTR LABORATORY | | | | | | [address] | | | | | | [place] | | | | | | [address] | | | | | | [phone] | | | +--------+ + + + [...] | | | | [place] | | | | | | [address] | | | | | | | | +--------+---------+ + + + documented as of this encounter Visit Diagnoses Not on filedocumented in this encounter"
--- OUTSIDE RECORDS SUMMARY | ~2019-10-22 | XMS | Encounter Summary ---
Demographics + + + | Address | [address] [facility] | | | [place] [address] | + + + | Home Phone [...] [place] | | | | | [address] | | + + + + + Care Team Providers + +------+ + | Care Fire Equipment Inspector Name | Role | Phone [...] + + | 08/24/ | Documentati | [facility] | Katharine Moncada, | Other (urgent | | 2019 | on | CARDIOLOGY [place] | Technologist | report) | | | | [address] | | | | | | [place] | | | | | | [address] | | | | | | [phone] | | | +--------+ + + + [...] [place] | | | | | | [address] | | | | | | | | +--------+---------+ + + + documented as of this encounter Visit Diagnoses Not on filedocumented in this encounter"
--- OUTSIDE RECORDS SUMMARY | ~2019-10-22 | XMS | Encounter Summary ---
Demographics + + + | Address | [address] [facility] | | | [place] [address] | + + + | Home Phone [...] [place] | | | | | [address] | | + + + + + Care Team Providers + +------+ + | Care Freight Claim Investigator Name | Role | Phone | [...] | | | | | Procedures | HEATER OPERATOR [address] | [address] | | | | | [place] OFFICE | | [address] | | | | | CONSULTATION | [address] | [place] | | | | | NEW/ESTAB | [facility], | [address] Phone: | | | | | PATIENT [address] | [place] [address] | [phone] | | | | | MIN | Phone: | Fax: | | | | | | [phone] | [phone] | | | | | | Fax: | | | | | | | [phone] | | +--------+--------+ + + + + Encounter Details +--------+---------+ + + + | Date | Type | Department | Care Team | Description | +--------+---------+ + + + | 05/02/ | Office | [facility] | Frandy Teresa, | Spondylolisthesis of | | 2013 | Visit | NEUROSURGERY [address] | DO [address] | lumbar region | | | | [address] | [address] [place], [place] | (Primary Dx); Lumbar | | | | [place], [place] | [id number] | stenosis; Lumbar | | | | [address] | | radicular pain; | | | | [phone] | | Lumbago | +--------+---------+ + + [...] [facility] [address] [place] [address] FAX: NEUROSURGERY HISTORY AND PHYSICAL EXAMINATION CHIEF [...] has no apparent deficits with short or oysterman memory. CRANIAL NERVES: II: Acuity is intact. [...] Intrinsics 5 5 Ulnar Intrinsics 5 5 Head Operator Sulfide Strength 5 5 Hip Flexion 5 4* [...] | | | [place] | | | | | | [address] | | | | | | | [...]
--- OUTSIDE RECORDS SUMMARY | ~2019-10-22 | XMS | Encounter Summary ---
Demographics + + + | Address | [address] [facility] [address] [facility] | | | [place] [address] | + + + | Home Phone [...] | [facility] [place] | | | and [place] | + + + | Address | Unknown | + + + | Phone | Unavailable | + + + Support + + + + + | Name | Relationship | Address | Phone | + + + + + | Araceli Sibley | ECON | [place] | | | | | [address] | | + + + + + Care Team Providers + +------+ + | Care Beater Head Name | Role | Phone | [...] | Telephone | [facility] [place] | Fradny Teresa, | Other | | 2013 | | NEUROSURGERY [address] | DO [address] | | | | | [address] | [address] [place], [place] | | | | | [place], [place] | [id number] | | | | | [address] | | | | | | [phone] | | | +--------+ + + + [...] | | | | | [place] | | | | | | [address] | | | | | | | | +--------+---------+ + + + documented as of this encounter Visit Diagnoses Not on filedocumented in this encounter"
--- OUTSIDE RECORDS SUMMARY | ~2019-10-22 | XMS | Encounter Summary ---
Demographics + + + | Address | [address] [facility] [address] [facility] | | | [place] [address] | + + + | Home Phone [...] [place] | | | | | [address] | | + + + + + Care Team Providers + +------+ + | Care Pit Supervisor Name | Role | Phone | [...] + | 12/03/ | Refill | [facility] | Frandy Teresa, | Medication Refill | | 2014 | | NEUROSURGERY [address] | DO [address] | | | | | [address] | [address] [place], [place] | | | | | [place], [place] | [id number] | | | | | [address] | | | | | | [phone] | | | +--------+--------+ + + + [...] | | | | | [facility] [place] | | | | | | [address] | | | | | | | | +--------+---------+ + + + documented as of this encounter Visit Diagnoses Not on filedocumented in this encounter"
--- OUTSIDE RECORDS SUMMARY | ~2019-10-22 | XMS | Encounter Summary ---
Demographics + + + | Address | [address] [address] [facility] | | | [place] [address] | + + + | Home Phone [...] [place] | | | | | [address] | | + + + + + Care Team Providers + +------+ + | Care Spanish Linguist Name | Role | Phone | + [...] + | 03/03/ | Telephone | [facility] | Baudilio Newman | Other (Results) | | 2014 | | NEUROLOGY LAURIE | MD Pollo Need updated | | | | | [address] [facility], | address | | | | | [address] [place] | | | | | | [place] [address] | | | | | | [phone] | | | +--------+ + + + [...] [place] | | | | | | [address] | | | | | | | | +--------+---------+ + + + documented as of this encounter Visit Diagnoses Not on filedocumented in this encounter"
--- OUTSIDE RECORDS SUMMARY | ~2019-10-22 | XMS | Encounter Summary ---
Demographics + + + | Address | [address] [facility] [address] [facility] | | | [place] [address] | + + + | Home Phone [...] [place], [place] | | | | | [address] | | + + + + + Care Team Providers + +------+ + | Care Skating Carhop Name | Role | Phone | + +------+ + PCP | Unavailable | + +------+ + Encounter Details +--------+ + + + + | Date | Type | Department | Care Team | Description | +--------+ + + + + | 12/09/ | Hospital | [facility] | Serafin Bautista | | | 2012 | Encounter | MED CTR XRAY [address] | T, MD [address] | | | | | [place] | ST [place], [place] | | | | | [place] [address] | [address] | | | | | [phone] | | | +--------+ + + + [...] [place] | | | | | | [address] | | | | | | | [...] [facility] Diagnostic Imaging Department | [facility] | | [address] [facility] | [facility] | | PROCEDURE NOTE EPIDURAL | DIAG [...] above. <Electronically | | | Signed by Searfin Bautista MD> 12/11/11 0718 | | + + + + + | Procedure Note | + + | Manohar Martinez Conversion - 11/30/2013 4:45 PM [facility] | | Diagnostic Imaging Department | | [address] [facility] | | | | | | | [...] [place] | | | | | [facility] | | | | + +---------+ + + documented in this encounter Visit Diagnoses Not on filedocumented in this encounter"
--- OUTSIDE RECORDS SUMMARY | ~2019-10-22 | XMS | Encounter Summary ---
Demographics + + + | Address | [address] [facility] [address] [facility] [address] [facility] | | | [place] [address] | + + + | Home Phone [...] [place] | | | | | [address] | | + + + + + Care Team Providers + +------+ + | Care Business Representative Name | Role | Phone | [...] + | 11/25/ | Telephone | [facility] | Frandy Teresa, | Medication Refill | | 2015 | | NEUROSURGERY [address] | DO [address] | Assistance | | | | [address] | [address] [place], [place] | | | | | [place], [place] | [address] | | | | | [address] | | | | | | [phone] | | | +--------+ + + + [...] | | | | | [place] | | | | | | [address] | | | | | | | | +--------+---------+ + + + documented as of this encounter Visit Diagnoses Not on filedocumented in this encounter"
--- OUTSIDE RECORDS SUMMARY | ~2019-10-22 | XMS | Encounter Summary ---
Demographics + + + | Address | [address] [facility] [address] [facility] [address] | | | [place] [address] | + + + | Home Phone [...] [place], [place] | | | | | [address] | | + + + + + Care Team Providers + +------+ + | Care Safety And Health Manager Name | Role | Phone | + +------+ + PCP | Unavailable | + +------+ + Encounter Details +--------+ + + + + | Date | Type | Department | Care Team | Description | +--------+ + + + + | 06/30/ | Hospital | [facility] | | | | 1999 - | Encounter | MED CTR GENERIC PSY | | | | | | CONV DEPT [address] | | | | 07/05/ | | [place], | | | | 1999 | | [place] [address] | | | | | | [phone] | | | +--------+ + + + [...] [place] | | | | | | [address] | | | | | | | | +--------+---------+ + + + documented as of this encounter Visit Diagnoses Not on filedocumented in this encounter"
--- OUTSIDE RECORDS SUMMARY | ~2019-10-22 | XMS | Encounter Summary ---
Demographics + + + | Address | [address] [facility] | | | [place] [address] | + + + | Home Phone [...] [place], [place] | | | | | [address] | | + + + + + Care Team Providers + +------+ + | Care Senior It Recruiter Name | Role | Phone | + +------+ + PCP | Unavailable | + +------+ + Encounter Details +--------+ + + + + | Date | Type | Department | Care Team | Description | +--------+ + + + + | 07/23/ | Hospital | [facility] | | | | 1992 - | Encounter | MED CTR GENERIC PSY | | | | | | CONV DEPT [address] | | | | 07/28/ | | [place], | | | | 1992 | | [place] [address] | | | | | | [phone] | | | +--------+ + + + [...] [place] | | | | | | [address] | | | | | | | | +--------+---------+ + + + documented as of this encounter Visit Diagnoses Not on filedocumented in this encounter"
--- OUTSIDE RECORDS SUMMARY | ~2019-10-22 | XMS | Encounter Summary ---
Demographics + + + | Address | [address] [facility] [address] [facility] | | | [place] [address] | + + + | Home Phone [...] [place] | | | | | [address] | | + + + + + [...] [place] | | | | | | [address] | | | | | | [phone] | | | +--------+ + + + [...] [place] | | | | | | [address] | | | | | | | | +--------+---------+ + + + documented as of this encounter Visit Diagnoses Not on filedocumented in this encounter"
--- OUTSIDE RECORDS SUMMARY | ~2019-10-22 | XMS | Encounter Summary ---
Demographics + + + | Address | [address] [facility] [address] [facility] | | | [place] [address] | + + + | Home Phone [...] [place] | | | | | [address] | | + + + + + Care Team Providers + +------+ + | Care Appliance Mechanic Name | Role | Phone | [...] + | 08/26/ | Refill | [facility] | Frandy Teresa, | Medication Refill | | 2013 | | NEUROSURGERY [address] | DO [address] | | | | | [address] | [address] [place], [place] | | | | | [place], [place] | [address] | | | | | [address] | | | | | | [phone] | | | +--------+--------+ + + + [...] | | | | | [place] | | | | | | [address] | | | | | | | | +--------+---------+ + + + documented as of this encounter Visit Diagnoses Not on filedocumented in this encounter"
--- OUTSIDE RECORDS SUMMARY | ~2019-10-22 | XMS | Encounter Summary ---
Demographics + + + | Address | [address] [facility] [address] [facility] | | | [place] [address] | + + + | Home Phone [...] [place] | | | | | [address] | | + + + + + Care Team Providers + +------+ + | Care Therapist Name | Role | Phone | [...] | abdominal | Martha, | [address] [place], | | | | | pain GERD | WORK FORCE ADVISOR [address] | [address] | | | | | (gastroesoph | [place], [place]inder | [place], | | | | | ageal reflux | [address] [place] | [place] [address] | | | | | disease) | [place], [place] | Phone: | | | | | Fatty liver | [address] | [phone] | | | | | DM | Phone: | Fax: | | | | | (diabetes | [phone] | [phone] | | | | | mellitus) | Fax: | | | | | | (HCC) | [phone] | | +--------+ + + + + [...] Office | [facility] | [facility], | Epigastric abdominal | | 2012 | Visit | GASTROENTEROLOGY | FORTUNATO Thomas [address] | pain (Primary Dx); | | | | [address] | [place], [address] | GERD | | | | [address] [place], [place] | [place], [place] | (gastroesophageal | | | | [address] | [address] | reflux disease); | | | | [phone] | | Fatty liver; DM | | [...] | | | | | [address] [place], [place] | | | | | | [id number] | | | | | | | [...]
--- OUTSIDE RECORDS SUMMARY | ~2019-10-22 | XMS | Encounter Summary ---
Demographics + + + | Address | [address] [facility] [address] [facility] | | | [place] [address] | + + + | Home Phone [...] [place] | | | | | [address] | | + + + + + Care Team Providers + +------+ + | Care Senior Manager Creative Services Name | Role | Phone | [...] | | spondylolist | | [address] | | | | | hesis | | [place], | | | | | Spinal | | [place] [address] | | | | | stenosis, | | Phone: | | | | | lumbar | | [phone] | | | | | region, | | Fax: | | | | | without | | [phone] | | | | | neurogenic | [...] | | | | | [address] | [address] [place] | | | | | [place] | [phone] | | | | | [address] | | | | | | [phone] | | | +--------+ + + + [...] Easy mask AW. DL times one with [facility] easy view | | | 2 | Intubation | | | | 2 | | | | | 6 | | | +----+---+ + + | | 1 | AN Bite | | | | 2 | Block | | | | 2 | | | | | 7 | | | +----+---+ + + | | 1 | [place] | | | | 2 | 43-degrees | | | | 3 | | | | | 1 | | | +----+---+ + + | | 1 | [place] off | | | | 4 | [...] | | | | | [place], [place] | | | | | | [phone] | | | | | | | [...]
--- OUTSIDE RECORDS SUMMARY | ~2019-10-22 | XMS | Encounter Summary ---
Demographics + + + | Address | [address] [facility] | | | [place] [address] | + + + | Home Phone [...] [place] | | | | | [address] | | + + + + + Care Team Providers + +------+ + | Care Clerical Assistant Name | Role | Phone | [...] [facility] | Ashley Chávez | Talia (Patient | | 2019 | | CARDIOLOGY [place] Abad, Pickling Solution Maker | mariela ) | | | | [address] | | | | | | [place], [place] | | | | | | [address] | | | | | | [phone] | | | +--------+ + + + [...] [place] | | | | | | [address] | | | | | | | | +--------+---------+ + + + documented as of this encounter Visit Diagnoses Not on filedocumented in this encounter"
--- OUTSIDE RECORDS SUMMARY | ~2019-10-22 | XMS | Encounter Summary ---
Demographics + + + | Address | [address] [facility] | | | [place] [address] | + + + | Home Phone [...] [place] | | | | | [address] | | + + + + + Care Team Providers + +------+ + | Care Underpresser Hand Name | Role | Phone | [...] [id number] | | | | | | [place], [place] | | | | | | [address] | | | | | | [phone] | | | +--------+ + + + [...] + + + + | [facility] | [address] | [place] [address] | | | PATHOLOGY | [address] [...] Re | | | | | | [address] | | | | + + + + + + + + | Specimen | + + | | + + + + + + + | Performing | Address | City/State/Zipcode | Phone Number | | Organization | | | | + + + + + | [facility] | [address] | [place] [address] | | | PATHOLOGY | [address] [...] Re | | | | | | [address] | | | | + + + + + + + + | Specimen | + + | | + + + + + + + | Performing | Address | City/State/Zipcode | Phone Number | | Organization | | | | + + + + + | [facility] | [address] | [place] [address] | | | PATHOLOGY | [address] [...] Re | | | | | | [address] | | | | + + + + + + + + | Specimen | + + | | + + + + + + + | Performing | Address | City/State/Zipcode | Phone Number | | Organization | | | | + + + + + | [facility] | [address] | [place] [address] | | | PATHOLOGY | [address] [...] Re | | | | | | [address] | | | | + + + + + + + + | Specimen | + + | | + + + + + + + | Performing | Address | City/State/Zipcode | Phone Number | | Organization | | | | + + + + + | [facility] | [address] | [place] [address] | | | PATHOLOGY | [address] | | | + + + + + documented in this encounter Visit Diagnoses Not on filedocumented in this encounter"
--- OUTSIDE RECORDS SUMMARY | ~2019-10-22 | XMS | Encounter Summary ---
Demographics + + + | Address | [address] [facility] | | | [place] [address] | + + + | Home Phone [...] [place], [place] | | | | | [address] | | + + + + + Care Team Providers + +------+ + | Care City [place] Name | Role | Phone | + +------+ + PCP | Unavailable | + +------+ + Encounter Details +--------+ + + + + | Date | Type | Department | Care Team | Description | +--------+ + + + + | 05/23/ | Hospital | [facility] | | | | 1991 | Encounter | MED CTR XRAY [address] | | | | | | [place] | | | | | | [place] [address] | | | | | | [phone] | | | +--------+ + + + [...] | | | | | [place] | | | | | | [address] | | | | | | | | +--------+---------+ + + + documented as of this encounter Visit Diagnoses Not on filedocumented in this encounter"
--- OUTSIDE RECORDS SUMMARY | ~2019-10-22 | XMS | Encounter Summary ---
Demographics + + + | Address | [address] [facility] [facility] | | | [place] [address] | + + + | Home Phone [...] [place] | | | | | [address] | | + + + + + Care Team Providers + +------+ + | Care Cra Name | Role | Phone | + [...] 07/19/ | Telephone | [facility] | Frandy Teresa, | Appointment | | 2013 | | NEUROSURGERY [address] | DO [address] | | | | | [address] | [address] [place], [place] | | | | | [place], [place] | [address] | | | | | [address] | | | | | | [phone] | | | +--------+ + + + [...] [place] | | | | | | [address] | | | | | | | | +--------+---------+ + + + documented as of this encounter Visit Diagnoses Not on filedocumented in this encounter"
--- OUTSIDE RECORDS SUMMARY | ~2019-10-22 | XMS | Encounter Summary ---
Demographics + + + | Address | [address] [facility] [address] [facility] | | | [place] [address] | + + + | Home Phone [...] [place] | | | | | [address] | | + + + + + Care Team Providers + +------+ + | Care Glass Technician/Installer Name | Role | Phone | + [...] | | 2019 | on | CARDIOLOGY [place] | Technologist | | | | | [address] | | | | | | [place], [place] | | | | | | [address] | | | | | | [phone] | | | +--------+ + + + [...] Technologist - 08/09/2019 11:59 PM PDT Cardiac Heat Treat Inspector Date of Event Monitor: 08/09/19 Referring Physician: [...] [place] | | | | | | [address] | | | | | | | | +--------+---------+ + + + documented as of this encounter Visit Diagnoses Not on filedocumented in this encounter"
--- OUTSIDE RECORDS SUMMARY | ~2019-10-22 | XMS | Encounter Summary ---
Demographics + + + | Address | [address] [facility] | | | [place] [address] | + + + | Home Phone [...] [place] | | | | | [address] | | + + + + + Care Team Providers + +------+ + | Care Cake Press Operator Name | Role | Phone [...] [place] | | | | | | [address] | | | | | | [phone] | | | +--------+ + + + [...] [place] | | | | | | [address] | | | | | | | | +--------+---------+ + + + documented as of this encounter Visit Diagnoses Not on filedocumented in this encounter"
--- OUTSIDE RECORDS SUMMARY | ~2019-10-22 | XMS | Encounter Summary ---
Demographics + + + | Address | [address] [address] [facility] | | | [place] [address] | + + + | Home Phone [...] [place] | | | | | [address] | | + + + + + Care Team Providers + +------+ + | Care Product Operations Associate Name | Role | Phone | [...] + + | 06/12/ | Office | [facility] | Chris Nicole, | Spondylisthesis | | 2013 | Visit | NEUROSURGERY [address] | PA-C [address] | (Primary Dx); | | | | [address] | [place], [place] | Radiculopathy of | | | | [place], [place] | [address] | leg; Lumbar spine | | | | [address] | | instability; Lumbar | | | | [phone] | | spondylosis; | | | | [...] the original. ZANE Castillo [address] [facility], [address] [place] [address] FAX: NEUROSURGERY HISTORY AND PHYSICAL [...] Take 15 mg by mouth nightl y. Wellborn-3 Fatty Acids (FISH OIL CONCENTRATE) 1000 MG [...] has no apparent deficits with short or shelter memory. CRANIAL NERVES: II: Acuity is intact. [...] Intrinsics 5 5 Ulnar Intrinsics 5 5 Us Administrative Law Judge Strength 5 5 Hip Flexion 5 4* [...] [place] | | | | | | [address] | | | | | | | [...]
--- OUTSIDE RECORDS SUMMARY | ~2019-10-22 | XMS | Encounter Summary ---
Demographics + + + | Address | [address] [facility] | | | [place] [address] | + + + | Home Phone [...] [place] | | | | | [address] | | + + + + + Care Team Providers + +------+ + | Care Voice Network Administrator Name | Role | Phone [...] | | | spondylolist | | [address] [place] | | | | | hesis | | [place], | | | | | Spinal | | [place] [address] | | | | | stenosis, | | Phone: | | | | | lumbar | | [phone] | | | | | region, | | Fax: | | | | | without | | [phone] | | | | | neurogenic | [...] | lumbar region, | | | | [place] | [address] [place], [place] | without neurogenic | | | | [place] [address] | [address] | claudication | | | | [phone] | | (Primary Dx) | +--------+ + [...] + + + +---------+ + + | Meridian-3 Fatty | Take 1,000 mg by | [...] [place] | | | | | | [address] | | | | | | | [...]
--- OUTSIDE RECORDS SUMMARY | ~2019-10-22 | XMS | Encounter Summary ---
Demographics + + + | Address | [address] [facility] [address] [facility] | | | [place] [address] | + + + | Home Phone [...] [place], [place] | | | | | [address] | | + + + + + Care Team Providers + +------+ + | Care Leasing Consultant Name | Role | Phone | + +------+ + PCP | Unavailable | + +------+ + Encounter Details +--------+ + + + + | Date | Type | Department | Care Team | Description | +--------+ + + + + | 06/19/ | Hospital | [facility] | | | | 1991 - | Encounter | MED CTR GENERIC PSY | | | | | | CONV DEPT [address] | | | | 06/24/ | | [place], | | | | 1991 | | [place] [address] | | | | | | [phone] | | | +--------+ + + + [...] [place] | | | | | | [address] | | | | | | | | +--------+---------+ + + + documented as of this encounter Visit Diagnoses Not on filedocumented in this encounter"
--- OUTSIDE RECORDS SUMMARY | ~2019-10-22 | XMS | Encounter Summary ---
Demographics + + + | Address | [address] [facility] [address] [facility] | | | [place] [address] | + + + | Home Phone [...] [place] | | | | | [address] | | + + + + + Care Team Providers + +------+ + | Care Information Technology Analyst Name | Role | Phone | [...] + + | 08/08/ | Telephone | [facility] | Ashley Chávez | Other (Questions | | 2019 | | CARDIOLOGY [place] | [place], Car Shagger | about coverage. ) | | | | [address] | | | | | | [place] | | | | | | [address] | | | | | | [phone] | | | +--------+ + + + [...] | | | | | [place] | | | | | | [address] | | | | | | | | +--------+---------+ + + + documented as of this encounter Visit Diagnoses Not on filedocumented in this encounter"
--- OUTSIDE RECORDS SUMMARY | ~2019-10-22 | XMS | Encounter Summary ---
Demographics + + + | Address | [address] [facility] | | | [place] [address] | + + + | Home Phone [...] [place] | | | | | [address] | | + + + + + Care Team Providers + +------+ + | Care Prepleater Name | Role | Phone | + [...] + | 09/26/ | Refill | [facility] | Frandy Teresa, | Medication Refill | | 2013 | | NEUR[address]UR[address]ERY [address] | DO [address] | | | | | [address] | [address] [place], [place] | | | | | [place], [place] | [id number] | | | | | [address] | | | | | | [phone] | | | +--------+--------+ + + + [...] | | | | | [place] | | | | | | [address] | | | | | | | | +--------+---------+ + + + documented as of this encounter Visit Diagnoses Not on filedocumented in this encounter"
--- OUTSIDE RECORDS SUMMARY | ~2019-10-22 | XMS | Encounter Summary ---
Demographics + + + | Address | [address] [facility] | | | [place] [address] | + + + | Home Phone [...] [place] | | | | | [address] | | + + + + + [...] [place] | | | | | | [address] | | | | | | [phone] | | | +--------+ + + + [...] [place] | | | | | | [address] | | | | | | | | +--------+---------+ + + + documented as of this encounter Visit Diagnoses Not on filedocumented in this encounter"
--- OUTSIDE RECORDS SUMMARY | ~2019-10-22 | XMS | Encounter Summary ---
Demographics + + + | Address | [address] [facility] [address] [facility] | | | [place] [address] | + + + | Home Phone [...] [place] | | | | | [address] | | + + + + + Care Team Providers + +------+ + | Care Soaping Machine Back Tender Name | Role | Phone [...] | 09/19/ | Telephone | [facility] | Ashley Chávez | Talia (Patient | | 2019 | | CARDIOLOGY [place] Abad, Supervisor Hand Workers | calling to be seen | | | | [address] | | ) | | | | [place] | | | | | | [address] | | | | | | [phone] | | | +--------+ + + + [...] [place] | | | | | | [address] | | | | | | | | +--------+---------+ + + + documented as of this encounter Visit Diagnoses Not on filedocumented in this encounter"
--- OUTSIDE RECORDS SUMMARY | ~2019-10-22 | XMS | Encounter Summary ---
Demographics + + + | Address | [address] [facility] | | | [place] [address] | + + + | Home Phone [...] [place], [place] | | | | | [address] | | + + + + + Care Team Providers + +------+ + | Care Yeast Supervisor Name | Role | Phone | + +------+ + PCP | Unavailable | + +------+ + Encounter Details +--------+ + + + + | Date | Type | Department | Care Team | Description | +--------+ + + + + | 01/26/ | Hospital | [facility] | Dale, Heath E A, | | | 2012 | Encounter | MED CTR XRAY [address] | MD [address] | | | | | [place] | [place] | | | | | [place] [address] | [address] | | | | | [phone] | | | +--------+ + + + [...] [place] | | | | | | [address] | | | | | | | [...] [facility] Diagnostic Imaging Department | [facility] | | [address] [address] | [facility] | | BILATERAL KNEES, THREE [...] Transcribed | | | Date/Time: 01/27/2012 17:18 Wet Pour Supervisor: | | | <Electronically Signed by Willie Perry MD> 01/27/12 [id number] | | + + + + + | Procedure Note | + + | Juan, Rad Conversion - 11/30/2013 5:03 PM [facility] | | Diagnostic Imaging Department [address] [place] [address] | | BILATERAL KNEES, THREE VIEWS: 01/27/2012 [...] 17:12 | |Transcribed Date/Time: 01/27/2012 17:18 | |Wet Pour Supervisor: | |<Electronically Signed by Willie Perry MD> 01/27/12 357 | + + + +---------+ + + [...]
--- OUTSIDE RECORDS SUMMARY | ~2019-10-22 | XMS | Encounter Summary ---
Demographics + + + | Address | [address] [facility] | | | [place] [address] | + + + | Home Phone [...] [place], [place] | | | | | [address] | | + + + + + Care Team Providers + +------+ + | Care Piece Marker Small Arms Name | Role | Phone | + +------+ + PCP | Unavailable | + +------+ + Encounter Details +--------+ + + + + | Date | Type | Department | Care Team | Description | +--------+ + + + + | 02/24/ | Hospital | [facility] | | | | 1997 | Encounter | MED CTR EMERGENCY | | | | | | [place] | | | | | | [place] | | | | | | [address] | | | | | | [phone] | | | +--------+ + + + [...] | | | | [place] | | | | | | [address] | | | | | | | | +--------+---------+ + + + documented as of this encounter Visit Diagnoses Not on filedocumented in this encounter"
--- OUTSIDE RECORDS SUMMARY | ~2019-10-22 | XMS | Encounter Summary ---
Demographics + + + | Address | [address] [facility] | | | [place] [address] | + + + | Home Phone [...] [place] | | | | | [address] | | + + + + + Care Team Providers + +------+ + | Care Revenue Field Agent Name | Role | Phone | [...] + + | 04/05/ | Telephone | [facility] [place] | [facility], | Results | | 2012 | | GASTROENTEROLOGY | FORTUNATO Thomas [address] | | | | | [address] [place] | [place], [address] | | | | | [address] [place], [place] | [place], [place] | | | | | [address] | [address] | | | | | [phone] | | | +--------+ + + + [...] [place] | | | | | | [address] | | | | | | | | +--------+---------+ + + + documented as of this encounter Visit Diagnoses Not on filedocumented in this encounter"
--- OUTSIDE RECORDS SUMMARY | ~2019-10-22 | XMS | Encounter Summary ---
Demographics + + + | Address | [address] [facility] | | | [place] [address] | + + + | Home Phone [...] [place], [place] | | | | | [address] | | + + + + + Care Team Providers + +------+ + | Care Oyster Preparer Name | Role | Phone | + +------+ + PCP | Unavailable | + +------+ + Encounter Details +--------+ + + + + | Date | Type | Department | Care Team | Description | +--------+ + + + + | 01/16/ | Hospital | [facility] | | | | 2002 | Encounter | MED CTR XRAY [address] | | | | | | [place] | | | | | | [place] [address] | | | | | | [phone] | | | +--------+ + + + [...] | | | | | [place] | | | | | | [address] | | | | | | | | +--------+---------+ + + + documented as of this encounter Visit Diagnoses Not on filedocumented in this encounter"
--- OUTSIDE RECORDS SUMMARY | ~2019-10-22 | XMS | Encounter Summary ---
Demographics + + + | Address | [address] [facility] | | | [place] [address] | + + + | Home Phone [...] [place], [place] | | | | | [address] | | + + + + + Care Team Providers + +------+ + | Care House Calls Nurse Name | Role | Phone | + +------+ + PCP | Unavailable | + +------+ + Encounter Details +--------+ + + + + | Date | Type | Department | Care Team | Description | +--------+ + + + + | 03/13/ | Hospital | [facility] | | | | 1996 - | Encounter | MED CTR GENERIC OP | | | | | | CONV DEPT [address] | | | | 03/21/ | | [place], | | | | 1996 | | [place] [address] | | | | | | [phone] | | | +--------+ + + + [...] [place] | | | | | | [address] | | | | | | | | +--------+---------+ + + + documented as of this encounter Visit Diagnoses Not on filedocumented in this encounter"
--- OUTSIDE RECORDS SUMMARY | ~2019-10-22 | XMS | Encounter Summary ---
Demographics + + + | Address | [address] [facility] | | | [place] [address] | + + + | Home Phone [...] [place], [place] | | | | | [address] | | + + + + + Care Team Providers + +------+ + | Care Tack Maker Name | Role | Phone | + +------+ + PCP | Unavailable | + +------+ + Encounter Details +--------+ + + + + | Date | Type | Department | Care Team | Description | +--------+ + + + + | 12/24/ | Hospital | [facility] | | | | 1998 | Encounter | MED CTR XRAY [address] | | | | | | [place] | | | | | | [place] [address] | | | | | | [phone] | | | +--------+ + + + [...] | | | | | [place] | | | | | | [address] | | | | | | | | +--------+---------+ + + + documented as of this encounter Visit Diagnoses Not on filedocumented in this encounter"
--- OUTSIDE RECORDS SUMMARY | ~2019-10-22 | XMS | Encounter Summary ---
Demographics + + + | Address | [address] [facility] | | | [place] [address] | + + + | Home Phone [...] [place] | | | | | [address] | | + + + + + Care Team Providers + +------+ + | Care Academic Adviser Name | Role | Phone | [...] Frandy Simons DO | [address] | | | | | of skin | [address] | [place], | | | | | sensation | [address] | [place] | | | | | Arthrodesis | [place], [place] | [address] | | | | | status Left | [address] | Phone: | | | | | leg | Phone: | [phone] | | | | | weakness | [phone] | Fax: | | | | | Procedures | Fax: | [phone] | | | | | MRI Lumbar | [phone] | | | | | | Spine [...] Frandy Simons DO | [address] | | | | | of skin | [address] | [place], | | | | | sensation | [address] | [place] | | | | | Arthrodesis | [place] | [address] | | | | | status Left | [address] | Phone: | | | | | leg | Phone: | [phone] | | | | | weakness | [phone] | Fax: | | | | | Procedures | Fax: | [phone] | | | | | MRI Lumbar | [phone] | | | | | | Spine wo | | | | | | | Contrast | | | +--------+--------+ + + + + Encounter Details +--------+ + + + + | Date | Type | Department | Care Team | Description | +--------+ + + + + | 08/19/ | Hospital | [facility] | Frandy Teresa, | Status post lumbar | | 2013 | Encounter | MED CTR MRI [address] | DO [address] | spinal fusion; Left | | | | [place], | [address] [place] | leg numbness; Left | | | | [place] [address] | [address] | leg weakness | | | | [phone] | | | +--------+ + + + [...] + + + +---------+ + + | [place]-3 Fatty | Take 1,000 mg by | [...] [place] | | | | | | [address] | | | | | | | [...] the round structure with high T1 and T6eqkyvd in the right L3 vertebral | | [...] + | MISCELLANEOUS LAB | | | [phone] | + +---------+ + + | MISCELANIOUS LAB | | | [phone] | + +---------+ + + documented in [...]
--- OUTSIDE RECORDS SUMMARY | ~2019-10-22 | XMS | Encounter Summary ---
Demographics + + + | Address | [address] [facility] | | | [place] [address] | + + + | Home Phone [...] [place] | | | | | [address] | | + + + + + Care Team Providers + +------+ + | Care Chinchilla Farmer Name | Role | Phone | [...] [address] | [address] [place], [place] | (Primary Dx) | | | | [place], [place] | [address] | | | | | [address] | | | | | | [phone] | | | +--------+ + + + [...] [place] | | | | | | [address] | | | | | | | [...] + | MISCELLANEOUS LAB | | | [phone] | + +---------+ + + | MISCELANIOUS LAB | | | [phone] | + +---------+ + + documented in this encounter Visit Diagnoses + + | Diagnosis | + + | Status post lumbar spinal fusion - Primary Arthrodesis status | + + documented in this encounter"
--- OUTSIDE RECORDS SUMMARY | ~2019-10-22 | XMS | Encounter Summary ---
Demographics + + + | Address | [address] [facility] | | | [place] [address] | + + + | Home Phone [...] [place] | | | | | [address] | | + + + + + Care Team Providers + +------+ + | Care Boiler House Inspector Name | Role | Phone | [...] [place] | | | | | | [address] | | | | | | [phone] | | | +--------+ + + + [...] [place] | | | | | | [address] | | | | | | | | +--------+---------+ + + + documented as of this encounter Visit Diagnoses Not on filedocumented in this encounter"
--- OUTSIDE RECORDS SUMMARY | ~2019-10-22 | XMS | Encounter Summary ---
Demographics + + + | Address | [address] [facility] | | | [place] [address] | + + + | Home Phone [...] [place] | | | | | [address] | | + + + + + Care Team Providers + +------+ + | Care Cash Management Clerk Name | Role | Phone | [...] | Frandy Simons DO | [address] | | | | | of skin | [address] | [place], | | | | | sensation | [address] | [place] | | | | | Arthrodesis | [place], [place] | [address] | | | | | status Left | [address] | Phone: | | | | | leg | Phone: | [phone] | | | | | weakness | [phone] | Fax: | | | | | Procedures | Fax: | [phone] | | | | | MRI Lumbar | [phone] | | | | | | Spine [...] [address] | [address] [place], [place] | | | | | [place], [place] | [address] | | | | | [address] | | | | | | [phone] | | | +--------+ + + + [...] [place] | | | | | | [address] | | | | | | | [...] the round structure with high T1 and Z1btheti in the right L3 vertebral | | [...] + | MISCELLANEOUS LAB | | | [phone] | + +---------+ + + | MISCELANIOUS LAB | | | [phone] | + +---------+ + + documented in [...]
--- OUTSIDE RECORDS SUMMARY | ~2019-10-22 | XMS | Encounter Summary ---
Demographics + + + | Address | [address] [facility] | | | [place] [address] | + + + | Home Phone [...] [place] | | | | | [address] | | + + + + + [...] [place] | | | | | | [address] | | | | | | [phone] | | | +--------+ + + + [...] [place] | | | | | | [address] | | | | | | | | +--------+---------+ + + + documented as of this encounter Visit Diagnoses Not on filedocumented in this encounter"
--- OUTSIDE RECORDS SUMMARY | ~2019-10-22 | XMS | Encounter Summary ---
Demographics + + + | Address | [address] [facility] | | | [place] [address] | + + + | Home Phone [...] [place] | | | | | [address] | | + + + + + Care Team Providers + +------+ + | Care Dietetic Assistant Name | Role | Phone | + +------+ + | Natalee Andersen NP | PCP | | + +------+ + Encounter Details +--------+---------+ + + + | Date | Type | Department | Care Team | Description | +--------+---------+ + + + | 06/25/ | Surgery | [facility] | Frandy Teresa, | Canceled | | 2013 | | MED CTR OR INTRA OP | DO [address] | PROCEDURE NOT | | | | [address] | [address] [place], [place] | PERFORMED | | | | [place], [place] | [address] | | | | | [address] | | | | | | [phone] | | | +--------+---------+ + + + [...] + + + +---------+ + + | [place]-3 Fatty | Take 1,000 mg by [...] | | | | [place], [place] | | | | | | [id number] | | | | | | | [...] mL/min/1.73m2 | [facility] | | | BULGARIAN | RATE,ESTIMATED | | MEDICAL | | | | mL/min/1.80t8Jdma than | | CENTER - | | [...] + | [facility] | [address] | [place] | [phone] | | [facility] | | [address] | | | - LABORATORY | | | | + + + + + | [facility] | [address] | [place] | | | [facility] | | [address] | | | - LABORATORY | | [...] + | [facility] | [address] | [place] | [phone] | | [facility] | | [address] | | | - LABORATORY | | | | + + + + + | [facility] | [address] | [place] | | | [facility] | | [address] | | | - LABORATORY | | [...] [address] | [place] | [phone] | | [facility] | | [address] | | | - LABORATORY | | | | + + + + + | [facility] | [address] | [place], [place] | | | [facility] | | [address] | | | - LABORATORY | | [...] | | [facility] | | [address] | | | - BLOOD BANK | [...] | + + + + + | [facility] | [address] | [place], [place] | [phone] | | [facility] | | [address] | | | - LABORATORY | | | | + + + + + | [facility] | [address] | [place], [place] | | | [facility] | | [address] | | | - LABORATORY | | [...]
--- OUTSIDE RECORDS SUMMARY | ~2019-10-22 | XMS | Encounter Summary ---
Demographics + + + | Address | [address] [facility] | | | [place] [address] | + + + | Home Phone [...] [place], [place] | | | | | [address] | | + + + + + Care Team Providers + +------+ + | Care Corn Grower Name | Role | Phone | + +------+ + PCP | Unavailable | + +------+ + Encounter Details +--------+ + + + + | Date | Type | Department | Care Team | Description | +--------+ + + + + | 12/27/ | Hospital | [facility] | | | | 1995 | Encounter | MED CTR LABORATORY | | | | | | [address] | | | | | | [place] | | | | | | [address] | | | | | | [phone] | | | +--------+ + + + [...] | | | | | [place] | | | | | | [address] | | | | | | | | +--------+---------+ + + + documented as of this encounter Visit Diagnoses Not on filedocumented in this encounter"
--- OUTSIDE RECORDS SUMMARY | ~2019-10-22 | XMS | Encounter Summary ---
Demographics + + + | Address | [address] [facility] | | | [place] [address] | + + + | Home Phone [...] [place], [place] | | | | | [address] | | + + + + + Care Team Providers + +------+ + | Care Manager Database Administration Name | Role | Phone | + +------+ + PCP | Unavailable | + +------+ + Encounter Details +--------+ + + + + | Date | Type | Department | Care Team | Description | +--------+ + + + + | 06/30/ | Hospital | [facility] | | | | 2000 | Encounter | MED CTR EMERGENCY | | | | | | [address] | | | | | | [place] | | | | | | [address] | | | | | | [phone] | | | +--------+ + + + [...] | | | | | [place] | | | | | | [address] | | | | | | | | +--------+---------+ + + + documented as of this encounter Visit Diagnoses Not on filedocumented in this encounter"
--- OUTSIDE RECORDS SUMMARY | ~2019-10-22 | XMS | Encounter Summary ---
Demographics + + + | Address | [address] [facility] [address] | | | [place] [address] | + + + | Home Phone [...] [place], [place] | | | | | [address] | | + + + + + Care Team Providers + +------+ + | Care Door Hanger Name | Role | Phone | + +------+ + PCP | Unavailable | + +------+ + Encounter Details +--------+ + + + + | Date | Type | Department | Care Team | Description | +--------+ + + + + | 12/22/ | Hospital | [facility] | | | | 1993 - | Encounter | MED CTR GENERIC PSY | | | | | | CONV DEPT [address] | | | | 12/25/ | | [place], | | | | 1993 | | [place] [address] | | | | | | [phone] | | | +--------+ + + + [...] [place] | | | | | | [address] | | | | | | | | +--------+---------+ + + + documented as of this encounter Visit Diagnoses Not on filedocumented in this encounter"
--- OUTSIDE RECORDS SUMMARY | ~2019-10-22 | XMS | Encounter Summary ---
Demographics + + + | Address | [address] [address] [facility] | | | [place] [address] | + + + | Home Phone [...] [place] | | | | | [address] | | + + + + + Care Team Providers + +------+ + | Care Fuel Buyer Name | Role | Phone | + +------+ + PCP | Unavailable | + +------+ + Encounter Details +--------+ + + + + | Date | Type | Department | Care Team | Description | +--------+ + + + + | 04/27/ | Hospital | [facility] | Sage Garza MD | | | 2001 | Encounter | HOSPITAL EMERGENCY | | | | | | CENTER [address] | | | | [address] [place], [place] | | | | | | [address] | | | | | | [phone] | | | +--------+ + + + [...] [place] | | | | | | [address] | | | | | | | | +--------+---------+ + + + documented as of this encounter Visit Diagnoses Not on filedocumented in this encounter"
--- OUTSIDE RECORDS SUMMARY | ~2019-10-22 | XMS | Encounter Summary ---
Demographics + + + | Address | [address] [facility] | | | [place] [address] | + + + | Home Phone [...] [place] | | | | | [address] | | + + + + + Care Team Providers + +------+ + | Care Agricultural Economics Teacher Name | Role | Phone | [...] + + | 03/03/ | Telephone | [facility] | Baudilio Newman | Other (Results) | | 2014 | | NEUROLOGY LAURIE | MD Pollo Need updated | | | | | [address], | address | | | | | [address] [place] | | | | | | [place] [address] | | | | | | [phone] | | | +--------+ + + + [...] [place] | | | | | | [address] | | | | | | | | +--------+---------+ + + + documented as of this encounter Visit Diagnoses Not on filedocumented in this encounter"
--- OUTSIDE RECORDS SUMMARY | ~2019-10-22 | XMS | Encounter Summary ---
Demographics + + + | Address | [address] [facility] | | | [place] [address] | + + + | Home Phone [...] [place] | | | | | [address] | | + + + + + Care Team Providers + +------+ + | Care Strategic Partnership Specialist Name | Role | Phone | [...] Office | [facility] | Deon Gonzales | ROGERS (obstructive | | 2012 | Visit | SLEEP DISORDER [address] | MD [address] | sleep apnea) | | | | [address] | [address] [place] | (Primary Dx); | | | | [place] [address] | [place] [address] | Sleepiness | | | | [phone] | [phone] | | | | | | | [...] you back in a month.Electronically signed by Deno Gonzales Jr., MD at 10:02 AM PDT documented in this encounter Progress Notes Deon Gonzales Jr., MD - 03/06/2013 10:08 AM PDTFormatting of this note might be differen t from the original. 03/06/13 1000 [place] Sleepiness Scale Sitting and reading 3 Watching [...] | | | | | [place] | | | | | | [id number] | | | | | | | | +--------+---------+ + + + documented as of this encounter Visit Diagnoses + + | Diagnosis | + + | ROGERS (obstructive sleep apnea) - Primary Obstructive sleep apnea (adult) (pediatric) | + + | Sleepiness Other alteration of consciousness | + + documented in this encounter"
--- OUTSIDE RECORDS SUMMARY | ~2019-10-22 | XMS | Encounter Summary ---
Demographics + + + | Address | [address] [facility] | | | [place] [address] | + + + | Home Phone [...] [place], [place] | | | | | [address] | | + + + + + Care Team Providers + +------+ + | Care Financial Sales Manager Name | Role | Phone | + +------+ + PCP | Unavailable | + +------+ + Encounter Details +--------+ + + + + | Date | Type | Department | Care Team | Description | +--------+ + + + + | 02/16/ | Hospital | [facility] | | | | 1994 | Encounter | MED CTR LABORATORY | | | | | | [address] | | | | | | [place] | | | | | | [address] | | | | | | [phone] | | | +--------+ + + + [...] | | | | | [place] | | | | | | [address] | | | | | | | | +--------+---------+ + + + documented as of this encounter Visit Diagnoses Not on filedocumented in this encounter"
--- OUTSIDE RECORDS SUMMARY | ~2019-10-22 | XMS | Encounter Summary ---
Demographics + + + | Address | [address] [facility] | | | [place] [address] | + + + | Home Phone [...] + | rAaceli Sibley | ECON | [place] | | | | | [address] | | + + + + + Care Team Providers + +------+ + | Care Sewing Machine Operator Plastic Zipper Name | Role | Phone | + [...] | | [address] | [place] [address] | | | | | [place], [place] | [phone] | | | | | [address] | | | | | | [phone] | | | +--------+ + + + [...] [facility] | | | | | | [address] | | | | | | | | +--------+---------+ + + + documented as of this encounter Visit Diagnoses Not on filedocumented in this encounter"
--- OUTSIDE RECORDS SUMMARY | ~2019-10-22 | XMS | Encounter Summary ---
Demographics + + + | Address | [address] [facility] | | | [place] [address] | + + + | Home Phone [...] [place] | | | | | [address] | | + + + + + Care Team Providers + +------+ + | Care Reinsurance Claim Analyst Name | Role | Phone | [...] | 03/10/ | Refill | [facility] | Katharine Cardona PA-C | Medication Refill | | 2014 | | MEDICINE [address] | [address] [place] | | | | | Street [place] | [place] [address] | | | | | [place] [address] | [phone] | | | | | [phone] | | | +--------+--------+ + + + [...] [place] | | | | | | [address] | | | | | | | | +--------+---------+ + + + documented as of this encounter Visit Diagnoses + + | Diagnosis | + + | Essential hypertension - Primary Unspecified essential hypertension | + + documented in this encounter"
[~2019-10-22 16:36] MED LIST changes: +TOPROL XL50 MG PO
--- OUTSIDE RECORDS SUMMARY | 2019-10-22 16:40 | XMS ---
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 Security Pot Press Operator Events No recent Security Events currently on file CRITERIA MET - 6 ED Visits in 6 Months - [facility] - Has Care Guidelines - PDMP - [facility] - 2 Visits in 30 Days CARE PROVIDERS WAYNE CAMARGO Internal Medicine 09/07/2019-Current PHONE: Unknown Kenny Palafox DO Family [facility] Current PHONE: Unknown Jose Ag Family Medicine 01/31/2019-Current PHONE: Unknown [place] [place] Mental [facility] Provider Current PHONE: [phone] Guidelines Source: Vivian Radha Negrete Guidelines Date: 03/13/2019 Care Coordination: Mental health services are being provided by [facility].\T\nbsp; Please contact [facility] with mental health concerns.\T\nbsp; [place]: \T\nbsp; [place]: [phone]. Care History Medical/Surgical 10/15/2019 [facility] Patient still scheduled for 10/25/[address] Camargo.\T\nbsp; Phone restrictions.\T\nbsp; Not able to reach patient by phone. 10/01/2019 [facility] Patient\T\#39;s 09/28/[address] Camargo was rescheduled for 2019. 09/19/2019 [facility] Patient has follow up appt. with Dr. Camargo on 09/28/19. E.D. VISIT COUNT (12 MO.) 26 [facility]. TOTAL 26 NOTE: Visits indicate total known visits. ED/UCC VISIT TRACKING (12 MO.) 10/22/2019 16:37 [facility] [place] TYPE: Emergency COMPLAINT: - MEDICAL CLEARANCE 10/20/2019 20:02 [facility] [place] TYPE: Emergency COMPLAINT: - MEDICAL CLEARANCE 10/12/2019 11:18 [facility] [place] TYPE: Emergency COMPLAINT: - MEDICAL CLEARANCE DIAGNOSES: - Delusional disorders - Allergy status to sulfonamides status - Allergy status to oth drug/meds/biol subst status - Gastro-esophageal reflux disease without esophagitis - Prsnl hx of TIA (TIA), and 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 - Other mcfp (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 - Old myocardial infarction - Essential (primary) hypertension - 1 Type 2 diabetes mellitus with hyperglycemia 10/11/2019 10:06 [facility] [place] TYPE: Emergency COMPLAINT: - MEDICAL CLEARANCE DIAGNOSES: - Essential (primary) hypertension - Delusional disorders - Old myocardial infarction - Delusional disorders - Allergy status to sulfonamides status - Other mcfp (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 - Schizoaffective disorder, unspecified 09/28/2019 13:19 [facility] [place] TYPE: Emergency COMPLAINT: - MEDICAL CLEARANCE DIAGNOSES: - 1 Type 2 diabetes mellitus without complications - Allergy status to oth drug/meds/biol subst status - Old myocardial infarction - Other mcfp (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 - Allergy status to sulfonamides status - Gastro-esophageal reflux disease without esophagitis - Essential (primary) hypertension - Suicidal ideations - Encounter for other administrative examinations 09/26/2019 10:06 [facility] [place] TYPE: Emergency COMPLAINT: - MEDICAL CLEARANCE DIAGNOSES: - 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 - Prsnl hx of TIA (TIA), and 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 - Gastro-esophageal reflux disease without esophagitis - Allergy status to sulfonamides status - Old myocardial infarction - Schizoaffective disorder, unspecified - Allergy status to oth drug/meds/biol subst status - Essential (primary) hypertension - retirement (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 09/25/2019 13:35 [facility] [place] [place] TYPE: Emergency COMPLAINT: - HEARING VOICES DIAGNOSES: - 1 Type 2 diabetes mellitus without complications - Prsnl hx of TIA (TIA), and 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 - Gastro-esophageal reflux disease without esophagitis - Schizoaffective disorder, unspecified - Suicidal ideations - retirement (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 - Old myocardial infarction - Allergy status to sulfonamides status - Essential (primary) hypertension - 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 - Allergy status to oth drug/meds/biol subst status 09/18/2019 13:53 [facility] [place] [place] TYPE: Emergency COMPLAINT: - MEDICAL CLEARANCE DIAGNOSES: - 1 Type 2 diabetes mellitus without complications - Schizoaffective disorder, unspecified - Suicidal ideations - Allergy status to oth drug/meds/biol subst status - Gastro-esophageal reflux disease without esophagitis - Old myocardial infarction - retirement (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 - Essential (primary) hypertension - Rash and other nonspecific skin eruption - Allergy status to sulfonamides status - Other mcfp (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 09/18/2019 10:33 [facility] [place] TYPE: Emergency COMPLAINT: - SUICIDAL THOUGHTS, HEARING VOICES DIAGNOSES: - Disorder of urea cycle metabolism, unspecified - 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 - Schizoaffective disorder, unspecified - Essential (primary) hypertension - 1 Type 2 diabetes mellitus without complications - Gastro-esophageal reflux disease without esophagitis - Old myocardial infarction - Allergy status to sulfonamides status - Allergy status to oth drug/meds/biol subst status - stenciler (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 09/06/2019 11:40 [facility] [place] TYPE: Emergency COMPLAINT: - MEDICAL CLEARANCE DIAGNOSES: - Old myocardial infarction - Essential (primary) hypertension - Allergy status to sulfonamides status - Auditory hallucinations - 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 - Allergy status to oth drug/meds/biol subst status - 1 Type 2 diabetes mellitus without complications - Gastro-esophageal reflux disease without esophagitis 08/15/2019 15:26 [facility] [place] TYPE: Emergency COMPLAINT: - DIZZINESS DIAGNOSES: - Schizoaffective disorder, unspecified - 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 - 1 Type 2 [...] 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 - 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 - Allergy status to [...] Allergy status to sulfonamides status - 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 - Allergy status to [...] status to narcotic agent status - Other mcfp (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 - Schizophrenia, unspecified 05/10/2019 14:24 [facility] [place] [place] TYPE: Emergency COMPLAINT: - MEDICAL CLEARANCE DIAGNOSES: - Acquired absence of other specified parts of digestive tract - 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 - Gastro-esophageal reflux disease without esophagitis - Other mcfp (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 - Allergy status to oth drug/meds/biol subst status - retirement (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 of 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 - [...] Allergy status to sulfonamides status - Other mcfp (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 - Essential (primary) hypertension [...] deficits - Old myocardial infarction - 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 - Allergy status to sulfonamides status - Other chest pain 05/02/2019 13:59 [facility] [place] [place] TYPE: Emergency COMPLAINT: - VOMITING, CHEST PAIN, WEAKNESS DIAGNOSES: - Allergy status to sulfonamides status - stenciler (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 of 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 - [...] of urea cycle metabolism, unspecified - 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
== END 2019-10-22 17:52 | disposition home or self-care (01) ==
LOC: ED 16:36
DX: Z00.8 Encounter for other general examination (principal); I10 Essential (primary) hypertension; E11.9 Type 2 diabetes mellitus without complications; K21.9 Gastro-esophageal reflux disease without esophagitis; I25.2 Old myocardial infarction; Z88.2 Allergy status to sulfonamides; Z88.8 Allergy status to other drugs, medicaments and biological substances; Z79.899 Other long term (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
CPT/HCPCS: 99282

== ENCOUNTER 2019-10-23 08:01 | Emergency (ER) | payer MEDICARE ==
[~2019-10-23] VITALS: Ht 170.2 cm; Wt 131.5 kg
--- OUTSIDE RECORDS SUMMARY | ~2019-10-23 | XMS | Encounter Summary ---
Demographics + + + | Address | [address] | | | [place] [address] | + + + | Home Phone | | + + + | Preferred Language | Unknown | + + + | Marital Status | | + + + | Temple Affiliation | 1013 | + + + | Race | Unknown | + + + | Ethnic Group | Unknown | + + + Author + + + | Author | [facility] | | | and [place] | + + + | Organization | [facility] | | | and [place] | + + + | Address | Unknown | + + + | Phone | Unavailable | + + + Support + + + + + | Name | Relationship | Address | Phone | + + + + + | Araceli Sibley | ECON | [place], [place] | | | | | [address] | | + + + + + Care Team Providers + +------+ + | Care Equipment Validation Specialist Name | Role | Phone | + +------+ + PCP | Unavailable | + +------+ + Encounter Details +--------+ + + + + | Date | Type | Department | Care Team | Description | +--------+ + + + + | 09/23/ | Hospital | [facility] | | | | 1994 | Encounter | MED [facility] LAB[facility] | | | | | | [address] | | | | | | [place] | | | | | | [address] | | | | | | [phone] | | | +--------+ + + + [...] Description | +--------+---------+ + + + | 04/10/ | Office | Cardiology | Desiree Peterson DO | | | 2019 | Visit | | [address] | | | | | | [place] | | | | | | [address] | | | | | | | | +--------+---------+ + + + documented as of this encounter Visit Diagnoses Not on filedocumented in this encounter"
--- OUTSIDE RECORDS SUMMARY | ~2019-10-23 | XMS | Encounter Summary ---
Demographics + + + | Address | [address] | | | [place] [address] | + + + | Home Phone | | + + + | Preferred Language | Unknown | + + + | Marital Status | | + + + | Yarsani Affiliation | 1013 | + + + | Race | Unknown | + + + | Ethnic Group | Unknown | + + + Author + + + | Author | [facility] | | | and [place] | + + + | Organization | [facility] | | | and [place] | + + + | Address | Unknown | + + + | Phone | Unavailable | + + + Support + + + + + | Name | Relationship | Address | Phone | + + + + + | Araceli Sibley | ECON | [place], [place] | | | | | [address] | | + + + + + Care Team Providers + +------+ + | Care Grinder Operator Surface Tool Name | Role | Phone | + +------+ + PCP | Unavailable | + +------+ + Encounter Details +--------+ + + + + | Date | Type | Department | Care Team | Description | +--------+ + + + + | 02/24/ | Hospital | [facility] | | | | 1997 | Encounter | MED CTR EM[facility]Y | | | | | | [address] | | | | | | [place] | | | | | | [address] | | | | | | [phone] | | | +--------+ + + + [...] | | | | | [place] | | | | | | [address] | | | | | | | | +--------+---------+ + + + documented as of this encounter Visit Diagnoses Not on filedocumented in this encounter"
--- OUTSIDE RECORDS SUMMARY | ~2019-10-23 | XMS | Encounter Summary ---
Demographics + + + | Address | [address] | | | [place] [address] | + + + | Home Phone | | + + + | Preferred Language | Unknown | + + + | Marital Status | Single | + + + | Rastafarian Affiliation | Unknown | + + + | Race | White | + + + | Ethnic Group | Not or | + + + Author + + + | Author | [facility] | + + + | Organization | [facility] | + + + | Address | Unknown | + + + | Phone | Unavailable | + + + Support + + + + + | Name | Relationship | Address | Phone | + + + + + | Kelsy Bautista | ECON | [address] | | | | | [place] | | | | | [address] | | + + + + + Care Team Providers + +------+ + | Care Nurse Practitioner Physicians Assistant Name | Role | Phone | + +------+ + PCP | Unavailable | + +------+ + Encounter Details +--------+ + + + + | Date | Type | Department | Care Team | Description | +--------+ + + + + | 02/04/ | Results | [facility] | Lazaro Sawant MD | | | 2015 | Only | Department | [address] | | | | | | [address] [place], | | | | | | [place] [address] | | | | | | [phone] | | | | | | | [...] | + +--------+ + + + | SURGICAL PATHOLOGY | Routin | 02/04/2015 | | Results for this | | | e | | | procedure are in the | | | | | | results section. | + +--------+ + + + documented in this encounter Results SURGICAL PATHOLOGY (02/04/2015) + + + + + + | Component | Value | Ref Range | Performed | Pathologist | | | | | At | Signature | + + + + + + | SURGICAL | SOURCE OF SPECIMEN:A | | [facility] | | | PATHOLOGY | Muscle Biopsy, Myopathy | | DEPARTMENT | | | | Final Pathologic | | OF | | | | Diagnosis:A. Skeletal | | PATHOLOGY | | | | muscle, right | | | | | | quadriceps, biopsy:- | | | | | | Denervation atrophy, | | | | | | chronic- Small, | | | | | | round muscle fibers- | | | | | | No active inflammation | | | | | | identified (see | | | | | | comment) Comment: | | | | | | This biopsy shows | | | | | | features of chronic | | | | | | denervation atrophy, | | | | | | withfiber type grouping | | | | | | and angular, atrophic | | | | | | fibers of both fiber | | | | | | types.There are large | | | | | | numbers of round, very | | | | | | small fibers of both | | | | | | fiber types,without | | | | | | other significant | | | | | | myopathic changes. It | | | | | | is unclear whether this | | | | | | isan unusual | | | | | | manifestation of her | | | | | | denervating process, or | | | | | | if this is aseparate | | | | | | myopathic feature. | | | | | | Small round fibers can | | | | | | be seen | | | | | | withinflammatory | | | | | | myopathies, however, no | | | | | | inflammatory infiltrates | | | | | | areidentified, and | | | | | | surrogate markers of | | | | | | inflammation (alkaline | | | | | | phosphatase andMHC-1) | | | | | | are also negative. It | | | | | | is unclear from the | | | | | | history received if | | | | | | shewas still on | | | | | | prednisone at the time | | | | | | of biopsy and how long | | | | | | she has beentreated with | | | | | | prednisone. 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 | | | | | | Case seen by:[facility] | | | | | | Doreen Lucia | | | | | | /Neuropathology | | | | | | FellowSondra Ahmadi, | | | | | | M.D., Ph.D. 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 She | | | | | | also has muscle pain in | | | | | | lower andupper | | | | | | extremities which was | | | | | | treated with prednisone. | | | | | | Gross | | | | | | Description:The specimen | | | | | | is received fresh from | | | | | | Dr. Lazaro Sawant, via [facility] | | | | [facility] | | | | | | [facility], [place], | | | | | | [place], delivered | | | | | | bycourier on moist telfa | | | | | | over ice, labeled with | | | | | | the patient's name | | | | | | (initialsPJ) and "R | | | | | | quad." It consists of | | | | | | a piece of red tissue | | | | | | with attached fat,and | | | | | | measures 3.0 x 2.2 x 1.2 | | | | | | cm. A portion of the | | | | | | specimen is fixed | | | | | | informalin for | | | | | | paraffin-embedding as | | | | | | block A2, a small | | | | | | fragment is fixed | | | | | | inglutaraldehyde for | | | | | | possible electron | | | | | | microscopy, and the | | | | | | remainder isfrozen for | | | | | | histochemical studies. | | | | | | Block | | | | | | Index: A1, | | | | | | frozenA2, paraffinA3, | | | | | | plastic embedded (embed | | | | | | and hold only) | | | | | | Microscopic | | | | | | Description:Specimens | | | | | | InvolvedSpecimens: | | | | | | A: Muscle Biopsy, | | | | | | Myopathy | | | | | | HistologyTissue | | | | | | preservation | | | | | | goodMyofiber size : | | | | | | Variable: Muscle | | | | | | fibers vary from10 to | | | | | | 100 microns indiameterNo | | | | | | increase in | | | | | | internalized | | | | | | nucleiAngular atrophic | | | | | | myofibersComment(s): | | | | | | fewPyknotic nuclear | | | | | | clumpsRound atrophic | | | | | | myofibersComment(s): | | | | | | manyInflammation: No | | | | | | inflammation | | | | | | presentThere is no | | | | | | muscle fiber necrosis or | | | | | | phagocytosis.There is | | | | | | no endomysial | | | | | | fibrosis.There is no | | | | | | vasculitis or other | | | | | | inflammation.A single | | | | | | ring fiber is | | | | | | identified.Histochemistr | | | | | | yTrichome: Unremarkable | | | | | | with no ragged red | | | | | | fibers, nemaline rods or | | | | | | rimmedvacuolesNADH: | | | | | | Unremarkable with no | | | | | | targets, targetoids, | | | | | | ring fibers or | | | | | | tubularaggregatesSDH: | | | | | | Ragged-blue | | | | | | fibersComment(s): | | | | | | rareATPase (pH 9.4 and | | | | | | pH 4.3): Atrophy of | | | | | | both type I and type 2 | | | | | | fibersFiber type | | | | | | groupingComment(s): | | | | | | Small round fibers are | | | | | | of both fiber types. | | | | | | Angularatrophic fibers | | | | | | are more type 1 than | | | | | | type 2.Cytochrome | | | | | | Oxidase: Fibers with | | | | | | total absence of | | | | | | stainingComment(s): | | | | | | rare negative fibers, | | | | | | within age-related | | | | | | rangePAS: Normal | | | | | | glycogen content and | | | | | | distributionComment(s): | | | | | | artifactual leakage | | | | | | of glycogen into | | | | | | extracellular | | | | | | spacePAS-D: | | | | | | Digested by | | | | | | qxiimtweGmg-Kvb-O: | | | | | | Increased lipid content | | | | | | in Type 1 fibersAcid | | | | | | Phosphatase: | | | | | | Unremarkable | | | | | | subsarcolemmalAlkaline | | | | | | Phosphatase: | | | | | | Unremarkable vascular | | | | | | labelingNon-specific | | | | | | Esterase: | | | | | | UnremarkableCongo-Red: | | | | | | | | | | | | NegativeMyophosphorylase | | | | | | : PresentMyoadenylate | | | | | | Deaminase: | | | | | | PresentImmunohistochem | | | | | | istryMHC-1: | | | | | | TcuivuyzPA45 stain | | | | | | shows only a few, | | | | | | scattered damaged | | | | | | fibers.(Analyte specific | | | | | | reagents are used in | | | | | | many laboratory tests | | | | | | necessary forstandard | | | | | | medical care. This | | | | | | test was developed and | | | | | | its | | | | | | performancecharacteristi | | | | | | cs determined by [facility] | | | | | | laboratories. It has | | | | | | not been clearedor | | | | | | approved by the U.S. | | | | | | Food and Drug | | | | | | Administration (FDA). | | | | | | FDA does notrequire | | | | | | this test to go through | | | | | | premarket FDA review. | | | | | | This test is usedfor | | | | | | clinical purposes. It | | | | | | should not be regarded | | | | | | as investigational or | | | | | | forresearch. This | | | | | | laboratory is certified | | | | | | under the Clinical | | | | | | LaboratoryImprovement | | | | | | Amendments (CLIA) as | | | | | | qualified to perform | | | | | | high complexityclinical | | | | | | laboratory testing.) | | | | | | My electronic | | | | | | signature indicates that | | | | | | I have personally | | | | | | reviewed alldiagnostic | | | | | | slides, the gross and/or | | | | | | microscopic portion of | | | | | | thisreport and | | | | | | formulated the final | | | | | | diagnosis. | | | | | | Rendering Diagnostician: | | | | | | Sondra Ahmadi | | | | | | M.D., | | | | | | Ph.D.PathologistElectr | | | | | | onically Signed | | | | | | 02/24/2015 3:46PM | | | | + + + + + + + + | Specimen | + + | | + + + + + + + | Performing | Address | City/State/Zipcode | Phone Number | | Organization | | | | + + + + + | [facility] | [address] | [place] [address] | | | PATHOLOGY | [address] | | | + + + + + documented in this encounter Visit Diagnoses Not on filedocumented in this encounter
--- OUTSIDE RECORDS SUMMARY | ~2019-10-23 | XMS | Encounter Summary ---
Demographics + + + | Address | [address] | | | [place] [address] | + + + | Home Phone | | + + + | Preferred Language | Unknown | + + + | Marital Status | | + + + | Jehovah'S Witness Affiliation | 1013 | + + + | Race | Unknown | + + + | Ethnic Group | Unknown | + + + Author + + + | Author | [facility] | | | and [place] | + + + | Organization | [facility] | | | and [place] | + + + | Address | Unknown | + + + | Phone | Unavailable | + + + Support + + + + + | Name | Relationship | Address | Phone | + + + + + | Araceli Sibley | ECON | [place], [place] | | | | | [address] | | + + + + + Care Team Providers + +------+ + | Care Lawn Sprinkler Servicer Name | Role | Phone | + +------+ + PCP | Unavailable | + +------+ + Encounter Details +--------+ + + + + | Date | Type | Department | Care Team | Description | +--------+ + + + + | 06/19/ | Hospital | [facility] | | | | 1991 - | Encounter | MED CTR GENERIC PSY | | | | | | CONV DEPT [address] | | | | 06/[address]/ | | [place], | | | | 1991 | | [place] [address] | | | | | | [phone] | | | +--------+ + + + [...] [place] | | | | | | [address] | | | | | | | | +--------+---------+ + + + documented as of this encounter Visit Diagnoses Not on filedocumented in this encounter"
--- OUTSIDE RECORDS SUMMARY | ~2019-10-23 | XMS | Encounter Summary ---
Demographics + + + | Address | [address] | | | [place] [address] | + + + | Home Phone | | + + + | Preferred Language | Unknown | + + + | Marital Status | | + + + | Sikh Affiliation | 1013 | + + + | Race | Unknown | + + + | Ethnic Group | Unknown | + + + Author + + + | Author | [facility] | | | and [place] | + + + | Organization | [facility] | | | and [place] | + + + | Address | Unknown | + + + | Phone | Unavailable | + + + Support + + + + + | Name | Relationship | Address | Phone | + + + + + | Araceli Sibley | ECON | [place] | | | | | [address] | | + + + + + Care Team Providers + +------+ + | Care Teaching Manager Name | Role | Phone | [...] | Frandy Simons DO | [address] | | | | | of skin | [address] | [place], | | | | | sensation | [address] | [place] | | | | | Arthrodesis | [place], [place] | [address] | | | | | status Left | [address] | Phone: | | | | | leg | Phone: | [phone] | | | | | weakness | [phone] | Fax: | | | | | Procedures | Fax: | [phone] | | | | | MRI Lumbar | [phone] | | | | | | Spine wo | | | | | | | Contrast | | | +--------+--------+ + + + + Reason for Visit Diagnostic/Screening (Routine) +--------+--------+ + + + + | Status | Reason | Specialty | Diagnoses / | Referred By | Referred To | | | | | Procedures | Contact | Contact | +--------+--------+ + + + + | Closed | | Radiology | Diagnoses | Brii, | [facility] | | | | | Disturbance | Frandy Simons DO | [address] | | | | | of skin | [address] | [place], | | | | | sensation | [address] | [place] | | | | | Arthrodesis | [place] | [address] | | | | | status Left | [address] | Phone: | | | | | leg | Phone: | [phone] | | | | | weakness | [phone] | Fax: | | | | | Procedures | Fax: | [phone] | | | | | MRI Lumbar | [phone] | | | | | | Spine wo | | | | | | | Contrast | | | +--------+--------+ + + + + Encounter Details +--------+ + + + + | Date | Type | Department | Care Team | Description | +--------+ + + + + | 08/19/ | Hospital | [facility] | Frandy Teresa, | Status post lumbar | | 2013 | Encounter | MED CTR MRI [address] | DO [address] | spinal fusion; Left | | | | [place], | [address] [place] | leg numbness; Left | | | | [place] [address] | [address] | leg weakness | | | | [phone] | | | +--------+ + + + [...] tablets by | 60 | 0 | 07/29/20 | | | HYDROcodone-acetamin | mouth every [...] | 0 | 03/31/20 | | | (THIEN COREY) 15 | nightly. | | | 12 | 5 | | MG disintegrating | | | | | | | tablet | | | | | | + + + +---------+ + + | [place]-3 Fatty | Take 1,000 mg by | [...] | | | | | | [place] | | | | | | [address] | | | | | | | | +--------+---------+ + + + documented as of this encounter Procedures + +--------+ + + + | Procedure Name | Priori | Date/Time | Associated Diagnosis | Comments | | | ty | | | | + +--------+ + + + | MRI LUMBAR SPINE WO | Routin | 08/19/2014 | Status post lumbar | Results for this | | CONTRAST | e | 12:05 PM | spinal fusion Left | procedure are in the | | | | PDT | leg numbness Left | results section. | | | | | leg weakness | | + +--------+ + + + documented in this encounter Results MRI Lumbar Spine wo [...] the round structure with high T1 and I3xnubhj in the right L3 vertebral | | [...] + | MISCELLANEOUS LAB | | | [phone] | + +---------+ + + | MISCELANIOUS LAB | | | [phone] | + +---------+ + + documented in this encounter Visit Diagnoses + + | Diagnosis | + + | Status post lumbar spinal fusion Arthrodesis status | + + | Left leg numbness Disturbance of skin sensation | + + | Left leg weakness Other musculoskeletal symptoms referable to limbs | + + documented in this encounter"
--- OUTSIDE RECORDS SUMMARY | ~2019-10-23 | XMS | Encounter Summary ---
Demographics + + + | Address | [address] | | | [place] [address] | + + + | Home Phone | | + + + | Preferred Language | Unknown | + + + | Marital Status | | + + + | Yarsanism Affiliation | 1013 | + + + | Race | Unknown | + + + | Ethnic Group | Unknown | + + + Author + + + | Author | [facility] | | | and [place] | + + + | Organization | [facility] | | | and [place] | + + + | Address | Unknown | + + + | Phone | Unavailable | + + + Support + + + + + | Name | Relationship | Address | Phone | + + + + + | Araceli Sibley | ECON | [place] | | | | | [address] | | + + + + + Care Team Providers + +------+ + | Care Lastex Thread Winder Name | Role | Phone | + +------+ + | Thierry Fry MD | PCP | | + +------+ + Reason for Visit +---------+ + | Reason | Comments | +---------+ + | Results | | +---------+ + Encounter Details +--------+ + + + + | Date | Type | Department | Care Team | Description | +--------+ + + + + | 03/07/ | Telephone | [facility] | Katharine Cardona PA-C | Results | | 2014 | | [facility] | [address] | | | | | [address] | [place] [address] | | | | | [place], [place] | [phone] | | | | | [address] | | | | | | [phone] | | | +--------+ + + + [...] [place] | | | | | | [address] | | | | | | | | +--------+---------+ + + + documented as of this encounter Visit Diagnoses Not on filedocumented in this encounter"
--- OUTSIDE RECORDS SUMMARY | ~2019-10-23 | XMS | Encounter Summary ---
Demographics + + + | Address | [address] | | | [place] [address] | + + + | Home Phone | | + + + | Preferred Language | Unknown | + + + | Marital Status | | + + + | Restoration Affiliation | 1013 | + + + | Race | Unknown | + + + | Ethnic Group | Unknown | + + + Author + + + | Author | [facility] | | | and [place] | + + + | Organization | [facility] | | | and [place] | + + + | Address | Unknown | + + + | Phone | Unavailable | + + + Support + + + + + | Name | Relationship | Address | Phone | + + + + + | Araceli Sibley | ECON | [place], [place] | | | | | [address] | | + + + + + Care Team Providers + +------+ + | Care Press Cutter Name | Role | Phone | + +------+ + PCP | Unavailable | + +------+ + Encounter Details +--------+ + + + + | Date | Type | Department | Care Team | Description | +--------+ + + + + | 01/25/ | Hospital | [facility] | | | | 2002 | Encounter | MED CTR XRAY [address] | | | | | | [place] | | | | | | [place] [address] | | | | | | [phone] | | | +--------+ + + + [...] | | | | | [place] | | | | | | [address] | | | | | | | | +--------+---------+ + + + documented as of this encounter Visit Diagnoses Not on filedocumented in this encounter"
--- OUTSIDE RECORDS SUMMARY | ~2019-10-23 | XMS | Encounter Summary ---
Demographics + + + | Address | [address] | | | [place] [address] | + + + | Home Phone | | + + + | Preferred Language | Unknown | + + + | Marital Status | | + + + | Confucianist Affiliation | 1013 | + + + | Race | Unknown | + + + | Ethnic Group | Unknown | + + + Author + + + | Author | [facility] | | | and [place] | + + + | Organization | [facility] | | | and [place] | + + + | Address | Unknown | + + + | Phone | Unavailable | + + + Support + + + + + | Name | Relationship | Address | Phone | + + + + + | Araceli Sibley | ECON | [place] | | | | | [address] | | + + + + + Care Team Providers + +------+ + | Care Machine Operator Packaging Name | Role | Phone | + [...] + + | 08/20/ | Documentati | [facility] | Katharine Moncada, | Other (urgent | | 2019 | on | CARDIOLOGY [place] | Technologist | report) | | | | [address] | | | | | | [place] | | | | | | [address] | | | | | | [phone] | | | +--------+ + + + [...] Progress Notes Katharine Moncada, Technologist - 08/20/2019 9:04 AM PDTReceived urgent report 08/20/19 Pt had a self triggered 08/18/19 at 11:55 98 BPM Called pt and she slept all [...] [place] | | | | | | [address] | | | | | | | | +--------+---------+ + + + documented as of this encounter Visit Diagnoses Not on filedocumented in this encounter"
--- OUTSIDE RECORDS SUMMARY | ~2019-10-23 | XMS | Encounter Summary ---
Demographics + + + | Address | [address] | | | [place] [address] | + + + | Home Phone | | + + + | Preferred Language | Unknown | + + + | Marital Status | | + + + | Anglican Affiliation | 1013 | + + + [...] [place] | | | | | [address] | | + + + + + Care Team Providers + +------+ + | Care Prep Person Name | Role | Phone | + +------+ + | Adraino Patrick MD | PCP | | + +------+ + Reason for Visit +--------+ + | Reason | Comments | +--------+ + | Other | Patient wants to take monitor off. | +--------+ + Encounter Details +--------+ + + + + | Date | Type | Department | Care Team | Description | +--------+ + + + + | 08/30/ | Telephone | [facility] | Ashley Chávez | Other (Patient wants | | 2019 | | CARDIOLOGY [place] | Pollo, Manager Behavioral | to take monitor | | | | [address] | | off. ) | | | | [address] | | | | | | [place] | | | | | | [address] | | | | | | [phone] | | | +--------+ + + + [...] | 2020 | Visit | | [address] | | | | | | [place] | | | | | | [address] | | | | | | | | +--------+---------+ + + + documented as of this encounter Visit Diagnoses Not on filedocumented in this encounter"
--- OUTSIDE RECORDS SUMMARY | ~2019-10-23 | XMS | Encounter Summary ---
Demographics + + + | Address | [address] | | | [place] [address] | + + + | Home Phone [...] [place], [place] | | | | | [address] | | + + + + + Care Team Providers + +------+ + | Care Sign Fabricator Name | Role | Phone | + +------+ + PCP | Unavailable | + +------+ + Encounter Details +--------+ + + + + | Date | Type | Department | Care Team | Description | +--------+ + + + + | 12/22/ | Hospital | [facility] | | | | 1993 - | Encounter | MED CTR GENERIC PSY | | | | | | CONV DEPT [address] | | | | 12/25/ | | [place], | | | | 1993 | | [place] [address] | | | | | | [phone] | | | +--------+ + + + [...] | 2020 | Visit | | [address] | | | | | | [place] | | | | | | [address] | | | | | | | | +--------+---------+ + + + documented as of this encounter Visit Diagnoses Not on filedocumented in this encounter"
--- OUTSIDE RECORDS SUMMARY | ~2019-10-23 | XMS | Encounter Summary ---
Demographics + + + | Address | [address] | | | [place] [address] | + + + | Home Phone [...] | + + + + + | Araclei Sibley | ECON | [place] | | | | | [address] | | + + + + + Care Team Providers + +------+ + | Care Capital Equipment Specialist Name | Role | Phone | + +------+ + | Adriano Patrick MD | PCP | | + +------+ + Reason for Visit + + + | Reason | Comments | + + + | Imaging Only | 1 year x-ray | + + + Encounter Details +--------+ + + + + | Date | Type | Department | Care Team | Description | +--------+ + + + + | 07/10/ | Telephone | [facility] | Frandy Teresa, | Imaging Only (1 year | | 2014 | | NEUROSURGERY [address] | DO [address] | x-ray ) | | | | [address] | [address] [place], [place] | | | | | [place], [place] | [phone] | | | | | [address] | | | | | | [phone] | | | +--------+ + + + [...] [place] | | | | | | [address] | | | | | | | | +--------+---------+ + + + documented as of this encounter Visit Diagnoses Not on filedocumented in this encounter"
--- OUTSIDE RECORDS SUMMARY | ~2019-10-23 | XMS | Encounter Summary ---
Demographics + + + | Address | [address] | | | [place] [address] | + + + | Home Phone [...] [place], [place] | | | | | [address] | | + + + + + Care Team Providers + +------+ + | Care It Analyst Name | Role | Phone | + +------+ + PCP | Unavailable | + +------+ + Encounter Details +--------+ + + + + | Date | Type | Department | Care Team | Description | +--------+ + + + + | 07/17/ | Hospital | [facility] | | | | 1997 - | Encounter | MED CTR GENERIC PSY | | | | | | CONV DEPT [address] | | | | 07/25/ | | [place], | | | | 1997 | | [place] [address] | | | | | | [phone] | | | +--------+ + + + [...] [place] | | | | | | [address] | | | | | | | | +--------+---------+ + + + documented as of this encounter Visit Diagnoses Not on filedocumented in this encounter"
--- OUTSIDE RECORDS SUMMARY | ~2019-10-23 | XMS | Encounter Summary ---
Demographics + + + | Address | [address] | | | [place] [address] | + + + | Home Phone | | + + + | Preferred Language | Unknown | + + + | Marital Status | | + + + | Gnosticism Affiliation | 1013 | + + + | Race | Unknown | + + + | Ethnic Group | Unknown | + + + Author + + + | Author | [facility] | | | and [place] | + + + | Organization | [facility] | | | and [place] | + + + | Address | Unknown | + + + | Phone | Unavailable | + + + Support + + + + + | Name | Relationship | Address | Phone | + + + + + | Araceli Sibley | ECON | [place] | | | | | [address] | | + + + + + Care Team Providers + +------+ + | Care Machine Maintenance Repairer Name | Role | Phone | + +------+ + | Natalee Andersen NP | PCP | | + +------+ + Encounter Details +--------+ + + + + | Date | Type | Department | Care Team | Description | +--------+ + + + + | 06/19/ | Orders Only | [facility] [place] | Frandy Teresa, | Status post lumbar | | 2014 | | NEUROSURGERY [address] | DO [address] | spinal fusion | | | | [address] | [address] [place], [place] | (Primary Dx) | | | | [place], [place] | [address] | | | | | [address] | | | | | | [phone] | | | +--------+ + + + [...] [place] | | | | | | [address] | | | | | | | | +--------+---------+ + + + documented as of this encounter Results XR Lumbar Spine 2 or 3 Vw (07/25/2014 2:31 PM PDT) + + | Specimen | + + | | + + + + + | Narrative | Performed At | + + + | EXAM: XR LUMBAR SPINE 2 OR 3 VW dated 07/25/2014 2:09 PM | [facility] | | HISTORY:S/P lumbar fusion COMPARISON: July 03, 2014. | LAB | | FINDINGS: Frontal and lateral views of the lumbar spine. Posterior | | | and interbody fusion is been performed at L5-S1. Hardware appears | | | to remain intact. Interbody graft markers are unchanged in | | | positioning. Spinal alignment is stable. No interval compression | | | deformities. Interval removal of the operative bed drain catheter. | | | IMPRESSION - Posterior and interbody fusion at L5-S1 without | | | interval complication. Dictated and Signed by: Tyrese Larsen MD | | | Electronically signed: 07/25/2014 5:17 PM | | + + + + + | Procedure Note | + + | Manohar Martinez Results In - 07/25/2014 5:20 PM PDT EXAM: XR LUMBAR SPINE 2 OR 3 VW dated | | 07/25/2014 2:09 PMHISTORY:S/P lumbar fusionCOMPARISON: July 03, 2014.FINDINGS: | | Frontal and lateral views of the lumbar spine. Posterior andinterbody fusion is been | | performed at L5-S1. Hardware appears to remain intact. Interbody graft markers are | | unchanged in positioning. Spinal alignment isstable. No interval compression | | deformities. Interval removal of the operativebed drain catheter.IMPRESSION -Posterior | | and interbody fusion at L5-S1 without interval complication.Dictated and Signed by: | | Tyrese Larsen MD Electronically signed: 07/25/2014 5:17 PM | | Interbody graft markers are unchanged in positioning. Spinal alignment is | |stable. No interval compression deformities. Interval removal of the operative | |bed drain catheter. | | | |IMPRESSION - | | | |Posterior and interbody fusion at L5-S1 without interval complication. | | | |Dictated and Signed by: Tyrese Larsen MD | | Electronically signed: 07/25/2014 5:17 PM | + + + +---------+ + + | Performing | Address | City/State/Zipcode | Phone Number | | Organization | | | | + +---------+ + + | MISCELLANEOUS LAB | | | [phone] | + +---------+ + + | MISCELANIOUS LAB | | | [phone] | + +---------+ + + documented in this encounter Visit Diagnoses + + | Diagnosis | + + | Status post lumbar spinal fusion - Primary Arthrodesis status | + + documented in this encounter"
--- OUTSIDE RECORDS SUMMARY | ~2019-10-23 | XMS | Encounter Summary ---
Demographics + + + | Address | [address] | | | [place] [address] | + + + | Home Phone [...] [place], [place] | | | | | [address] | | + + + + + Care Team Providers + +------+ + | Care Pocket Closer Name | Role | Phone | + +------+ + PCP | Unavailable | + +------+ + Encounter Details +--------+ + + + + | Date | Type | Department | Care Team | Description | +--------+ + + + + | 06/23/ | Hospital | [facility] | | | | 2000 | Encounter | MED CTR GENERIC OP | | | | | | CONV DEPT [address] | | | | | | [place], | | | | | | [place] [address] | | | | | | [phone] | | | +--------+ + + + [...] | | | | | [place] | | | | | | [address] | | | | | | | | +--------+---------+ + + + documented as of this encounter Visit Diagnoses Not on filedocumented in this encounter"
--- OUTSIDE RECORDS SUMMARY | ~2019-10-23 | XMS | Encounter Summary ---
Demographics + + + | Address | [address] | | | [place] [address] | + + + | Home Phone [...] [place], [place] | | | | | [address] | | + + + + + Care Team Providers + +------+ + | Care Character Impersonator Name | Role | Phone | + +------+ + PCP | Unavailable | + +------+ + Encounter Details +--------+ + + + + | Date | Type | Department | Care Team | Description | +--------+ + + + + | 05/23/ | Hospital | [facility] | | | | 1991 | Encounter | MED CTR XRAY [address] | | | | | | [place] | | | | | | [place] [address] | | | | | | [phone] | | | +--------+ + + + [...] | | | | | [place] | | | | | | [address] | | | | | | | | +--------+---------+ + + + documented as of this encounter Visit Diagnoses Not on filedocumented in this encounter"
--- OUTSIDE RECORDS SUMMARY | ~2019-10-23 | XMS | Encounter Summary ---
Demographics + + + | Address | [address] | | | [place] [address] | + + + | Home Phone [...] [place] | | | | | [address] | | + + + + + Care Team Providers + +------+ + | Care Self Contained Behavior Unit Teacher Name | Role | Phone | [...] | 06/26/ | Telephone | [facility] [place] | Frandy Teresa, | Other | | 2013 | | NEUROSURGERY [address] | DO [address] | | | | | [address] | [address] [place], [place] | | | | | [place], [place] | [phone] | | | | | [address] | | | | | | [phone] | | | +--------+ + + + [...] | | | | | [place] | | | | | | [address] | | | | | | | | +--------+---------+ + + + documented as of this encounter Visit Diagnoses Not on filedocumented in this encounter"
--- OUTSIDE RECORDS SUMMARY | ~2019-10-23 | XMS | Encounter Summary ---
Demographics + + + | Address | [address] | | | [place] [address] | + + + | Home Phone [...] [place] | | | | | [address] | | + + + + + Care Team Providers + +------+ + | Care Product Development Specialist Name | Role | Phone | [...] | | | spondylolist | | [address] | | | | | hesis | | [place], | | | | | Spinal | | [place] [address] | | | | | stenosis, | | Phone: | | | | | lumbar | | [phone] | | | | | region, | | Fax: | | | | | without | | [phone] | | | | | neurogenic | [...] | | | | | | | [place] | | | | | | [...] | | | | | | [place] | | | | | | | [...] | | | | | | [place] | | | | | | | [...] | 07/02/ | Anesthesia | [facility] | Zen Mccord | | | 2013 | Event | MED CTR OR INTRA OP | MD Ksenia [address] | | | | | [address] | [address] [place] | | | | | [place] | [phone] | | | | | [address] | | | | | | [phone] | | | +--------+ + + + [...] Easy mask AW. DL times one with [facility] easy view | | | 2 | Intubation | | | | 2 | | | | | 6 | | | +----+---+ + + | | 1 | AN Bite | | | | 2 | Block | | | | 2 | | | | | 7 | | | +----+---+ + + | | 1 | Nellis | | | | 2 | 43-degrees | | | | 3 | | | | | 1 | | | +----+---+ + + | | 1 | Nellis off | | | | 4 | [...] | | | | | [place], [place] | | | | | | [phone] | | | | | | | [...] | 12.5 mg | | | | PRN, Starting Tuyesy 07/02/14 at 1300, | | 14 1:44 [...] 14 2:09 | | | | | Tue07/02/14 at 1409, Anesthesia | | PM PDT | | | | | Intra-op | | | | | | + +-------+ +--------+---+---+ +---+---+ | | | +---+---+ + +-------+ +------+---+---+ | ondansetron (ZOFRAN) injection | Given | 07/02/20 | 4 mg | | | | PRN, Nausea, Vomiting, Starting | | 14 12:25 | | | | | Tue07/02/14 at 1225, Anesthesia | | PM PDT | | | | | Intra-op | | | | | | + +-------+ +------+---+---+ +---+---+ | | | +---+---+ + +-------+ +---------+---+---+ | phenylephrine (PITER-SYNEPHRINE) | Given | 07/02/20 | 100 mcg | | | | 10 mg/mL injection Intravenous, | | 14 1:04 | | | | | PRN, Starting 07/02/14 at 1304, | | PM PDT | [...]
--- OUTSIDE RECORDS SUMMARY | ~2019-10-23 | XMS | Encounter Summary ---
Demographics + + + | Address | [address] | | | [place] [address] | + + + | Home Phone | | + + + | Preferred Language | Unknown | + + + | Marital Status | | + + + | Jain Affiliation | 1013 | + + + [...] [place] | | | | | [address] | | + + + + + Care Team Providers + +------+ + | Care Credit And Collections Analyst Name | Role | Phone | + +------+ + | Natalee Andersen NP | PCP | | + +------+ + Encounter Details +--------+ + + + + | Date | Type | Department | Care Team | Description | +--------+ + + + + | 07/06/ | Hospital | [facility] | Latricia Feliciano | | | 2014 | Encounter | MED CTR ACUTE | D, PT [address] | | | | | PHYSICAL THERAPY | [place] | | | | | [address] | [address] | | | | | [place] [address] | | | | | | [phone] | | | +--------+ + + + [...] + + + +---------+ + + | [place]-3 Fatty | Take 1,000 mg by | [...] | | | | | [place] | | | | | | [address] | | | | | | | | +--------+---------+ + + + documented as of this encounter Visit Diagnoses Not on filedocumented in this encounter"
--- OUTSIDE RECORDS SUMMARY | ~2019-10-23 | XMS | Encounter Summary ---
Demographics + + + | Address | [address] | | | [place] [address] | + + + | Home Phone | | + + + | Preferred Language | Unknown | + + + | Marital Status | | + + + | Cheondoism Affiliation | 1013 | + + + | Race | Unknown | + + + | Ethnic Group | Unknown | + + + Author + + + | Author | [facility] | | | and [place] | + + + | Organization | [facility] | | | and [place] | + + + | Address | Unknown | + + + | Phone | Unavailable | + + + Support + + + + + | Name | Relationship | Address | Phone | + + + + + | Araceli Sibley | ECON | [place] | | | | | [address] | | + + + + + Care Team Providers + +------+ + | Care Grain Elevator Operator Name | Role | Phone | [...] + + | 08/08/ | Telephone | [facility] | Ashley Chávez | Other (Questions | | 2019 | | CARDIOLOGY [place] | Pollo, Functional Tester Typewriters | about coverage. ) | | | | [address] | | | | | | [place] | | | | | | [address] | | | | | | [phone] | | | +--------+ + + + [...] | | | | | [place] | | | | | | [address] | | | | | | | | +--------+---------+ + + + documented as of this encounter Visit Diagnoses Not on filedocumented in this encounter"
--- OUTSIDE RECORDS SUMMARY | ~2019-10-23 | XMS | Encounter Summary ---
Demographics + + + | Address | [address] | | | [place] [address] | + + + | Home Phone | | + + + | Preferred Language | Unknown | + + + | Marital Status | | + + + | Mosque Affiliation | 1013 | + + + | Race | Unknown | + + + | Ethnic Group | Unknown | + + + Author + + + | Author | [facility] | | | and [place] | + + + | Organization | [facility] | | | and [place] | + + + | Address | Unknown | + + + | Phone | Unavailable | + + + Support + + + + + | Name | Relationship | Address | Phone | + + + + + | Araceli Sibley | ECON | [place] | | | | | [address] | | + + + + + Care Team Providers + +------+ + | Care Manager Of Internal Audit Name | Role | Phone | + [...] + | 06/20/ | Telephone | [facility] | Frandy Teresa, | Other (surgery | | 2013 | | NEUROSURGERY [address] | DO [address] | reminder ) | | | | [address] | [address] [place], [place] | | | | | [place], [place] | [address] | | | | | [address] | | | | | | [phone] | | | +--------+ + + + [...] | | | | | [place] | | | | | | [address] | | | | | | | | +--------+---------+ + + + documented as of this encounter Visit Diagnoses Not on filedocumented in this encounter"
--- OUTSIDE RECORDS SUMMARY | ~2019-10-23 | XMS | Encounter Summary ---
Demographics + + + | Address | [address] | | | [place] [address] | + + + | Home Phone | | + + + | Preferred Language | Unknown | + + + | Marital Status | | + + + | Zoroastrianism Affiliation | 1013 | + + + | Race | Unknown | + + + | Ethnic Group | Unknown | + + + Author + + + | Author | [facility] | | | and [place] | + + + | Organization | [facility] | | | and [place] | + + + | Address | Unknown | + + + | Phone | Unavailable | + + + Support + + + + + | Name | Relationship | Address | Phone | + + + + + | Araceli Sibley | ECON | [place] | | | | | [address] | | + + + + + Care Team Providers + +------+ + | Care Livestock Trader Name | Role | Phone | + [...] + + | 03/03/ | Telephone | [facility] | Baudilio Newman | Other (Results) | | 2014 | | NEUROLOGY LAURIE | MD Pollo Need updated | | | | | [address], | address | | | | | [address] [place] | | | | | | [place] [address] | | | | | | [phone] | | | +--------+ + + + [...] [place] | | | | | | [address] | | | | | | | | +--------+---------+ + + + documented as of this encounter Visit Diagnoses Not on filedocumented in this encounter"
--- OUTSIDE RECORDS SUMMARY | ~2019-10-23 | XMS | Encounter Summary ---
Demographics + + + | Address | [address] | | | [place] [address] | + + + | Home Phone [...] [place] | | | | | [address] | | + + + + + Care Team Providers + +------+ + | Care Containers Sales Representative Name | Role | Phone | [...] | | | | | pain, | [place], [place] | | | | | | bilateral | [address] | | | | | | Degenerative | Phone: | | | | | | disc | [phone] | | | | | | disease, | Fax: | | | | | | lumbar | [phone] | | | | | | Spinal [...] [address] | [address] [place], [place] | (Primary Dx); Knee | | | | [place], [place] | [address] | pain, bilateral; | | | | [address] | | DEGENERATIVE DISC | | | | [phone] | | DISEASE, LUMBAR | | | [...] | | | | | [place] | | | | | | [id number] | | | | | | | [...]
--- OUTSIDE RECORDS SUMMARY | ~2019-10-23 | XMS | Encounter Summary ---
Demographics + + + | Address | [address] | | | [place] [address] | + + + | Home Phone [...] [place], [place] | | | | | [address] | | + + + + + Care Team Providers + +------+ + | Care Congressional Aide Name | Role | Phone | + +------+ + PCP | Unavailable | + +------+ + Encounter Details +--------+ + + + + | Date | Type | Department | Care Team | Description | +--------+ + + + + | 02/28/ | Hospital | [facility] | Deon Gonzales | | | 2011 | Encounter | MED CTR SLEEP | MD [address] | | | | | [address] | [place] | | | | | [place], [place] | [place] [address] | | | | | [address] | [phone] | | | | | [phone] | | | +--------+ + + + [...] [place] | | | | | | [address] | | | | | | | | +--------+---------+ + + + documented as of this encounter Visit Diagnoses Not on filedocumented in this encounter"
--- OUTSIDE RECORDS SUMMARY | ~2019-10-23 | XMS | Encounter Summary ---
Demographics + + + | Address | [address] | | | [place] [address] | + + + | Home Phone [...] [place] | | | | | [address] | | + + + + + Care Team Providers + +------+ + | Care Show Dog Trainer Name | Role | Phone | + +------+ + | Natalee Andersen NP | PCP | | + +------+ + Encounter Details +--------+ + + + + | Date | Type | Department | Care Team | Description | +--------+ + + + + | 06/26/ | Hospital | [facility] | Heather Cordero PT | | | 2014 | Encounter | MED CTR ACUTE | [address] | | | | | PHYSICAL THERAPY | [place] | | | | | [address] [place] | [address] | | | | | [place] [address] | | | | | | [phone] | | | +--------+ + + + [...] + + + +---------+ + + | [place]-3 Fatty | Take 1,000 mg by | [...] [place] | | | | | | [address] | | | | | | | | +--------+---------+ + + + documented as of this encounter Visit Diagnoses Not on filedocumented in this encounter"
--- OUTSIDE RECORDS SUMMARY | ~2019-10-23 | XMS | Encounter Summary ---
Demographics + + + | Address | [address] | | | [place] [address] | + + + | Home Phone [...] [place], [place] | | | | | [address] | | + + + + + Care Team Providers + +------+ + | Care Ceramic Chemist Name | Role | Phone | + +------+ + PCP | Unavailable | + +------+ + Encounter Details +--------+ + + + + | Date | Type | Department | Care Team | Description | +--------+ + + + + | 06/07/ | Hospital | [facility] | | | | 1991 - | Encounter | MED CTR GENERIC OP | | | | | | CONV DEPT [address] | | | | 10/07/ | | [address], | | | | 1991 | | [place] [address] | | | | | | [phone] | | | +--------+ + + + [...] [place] | | | | | | [address] | | | | | | | | +--------+---------+ + + + documented as of this encounter Visit Diagnoses Not on filedocumented in this encounter"
--- OUTSIDE RECORDS SUMMARY | ~2019-10-23 | XMS | Encounter Summary ---
Demographics + + + | Address | [address] | | | [place] [address] | + + + | Home Phone [...] [place] | | | | | [address] | | + + + + + Care Team Providers + +------+ + | Care Gas Collection System Operator Name | Role | Phone | + +------+ + | Adriano Patrick MD | PCP | | + +------+ + Reason for Visit + + + | Reason | Comments | + + + | Follow-up | 2 month/ monitor | + + + Encounter Details +--------+---------+ + + + | Date | Type | Department | Care Team | Description | +--------+---------+ + + + | 10/04/ | Office | [facility] | Desiree Peterson DO | ROGERS on CPAP (Primary | | 2019 | Visit | CARDIOLOGY [place] | [address] | Dx); Morbid obesity | | | | [address] | [place], [place] | (HCC); Benign | | | | [address] | [address] | essential HTN; | | | | [place], [place] | | Atrial fibrillation, | | | | [address] | | unspecified type | | | | [phone] | | ([facility]) | +--------+---------+ + + + Social History [...] encounter Progress Notes Desiree Peterson DO - 10/04/2019 11:40 AM PST [facility] Cardiology Cardiology Follow Up Note Reason for [...] rtake in exercise. She recently got a [employer] and has been walking him more regularly. [...] had 2 prior episodes of syncope before 2017 occurred when her blood pressure was low. [...] also admits to intermittent LE swelling. Interim history I last saw the patient in the office on 07/19/2019. At that time, she was following up fro m a syncopal episode. A 1-month event monitor was ordered. The 1-month event monitor demonstrated normal sinus r hythm with an average heart rate of 93 beats per minute. There was one episode of atrial fi brillation lasting 26 seconds with an average heart rate of 132 beats per minute as well as atrial and ventricular ectopy. She had 6 brief runs of supraventricular tachycardia and one 5-beat run of nonsustained ventricular tachycardia, which was 5 beats long. Since we last saw each other, she has been about at her baseline. She has recently had her psych meds ad justed. She does admit to some overall generalized fatigue. She denies any chest pains. S he has had some issues with shortness of breath recently. She denies any palpitations, but notices that her heart rate is above 100 quite frequently. She reports that she has had a f ew episodes of presyncope since we last saw each other. Review of Systems Constitutional: positive for fatigue. [...] by mouth daily. Blood Glucose Monitoring Suppl ([employer]IO FLEX SYSTEM) w/Device KIT by Does not ap ply route. budesonide-formoterol (SYMBICORT) 160-4.5 MCG/ACT inhaler Inhale 2 puffs into the lungs 2 (two) times daily. Calcium Carbonate Antacid 1000 MG tablet Take 1,000 mg by mouth 3 (three) times daily. Cholecalciferol (VITAMIN D3) 31759 units CAPS Take by mouth once a [...] AST 76, ALT 76, alkaline phosphatase 134. EK02/22/19 ordered and reviewed by myself normal [...] II 11. Hypothyroidism -The patient is a 64-year-old female who presents to the cardiology office for follow up re garding a syncopal episode. She had a recent nuclear stress test which was a low risk study. She wore a 1 month ambulatory event monitor which was only notable for a 24s run of paroxy smal atrial fibrillation of which she was asymptomatic. Given her rate this episode was, an ticoagulation is not indicated at this time. We discussed strategies to reduce her risk of atrial fibrillation in the future including diet and exercise for the purpose of weight loss , and use of CPAP therapy. - DC atenolol - Start metoprolol succinate 50mg po daily -Follow-up in 6 months Thank you for allowing me to [...] [place] | | | | | | [id number] | | | | | | | | +--------+---------+ + + + documented as of this encounter Visit Diagnoses + + | Diagnosis | + + | ROGERS on CPAP - Primary Obstructive sleep apnea (adult) (pediatric) | + + | Morbid obesity (HCC) Morbid obesity | + + | Benign essential HTN Essential hypertension, benign | + + | Atrial fibrillation, unspecified type (HCC) | + + documented in this encounter
--- OUTSIDE RECORDS SUMMARY | ~2019-10-23 | XMS | Encounter Summary ---
Demographics + + + | Address | [address] | | | [place] [address] | + + + | Home Phone [...] [place] | | | | | [address] | | + + + + + Care Team Providers + +------+ + | Care Rebeamer Name | Role | Phone | + [...] + + | 09/10/ | Documentati | [facility] | Katharine Moncada, | Other (urgent | | 2019 | on | CARDIOLOGY [place] | Technologist | report) | | | | [address] | | | | | | [place] | | | | | | [address] | | | | | | [phone] | | | +--------+ + + + [...] [place] | | | | | | [address] | | | | | | | | +--------+---------+ + + + documented as of this encounter Visit Diagnoses Not on filedocumented in this encounter"
--- OUTSIDE RECORDS SUMMARY | ~2019-10-23 | XMS | Encounter Summary ---
Demographics + + + | Address | [address] | | | [place] [address] | + + + | Home Phone [...] [place] | | | | | [address] | | + + + + + Care Team Providers + +------+ + | Care Vice President And Portfolio Manager Name | Role | Phone | [...] + + | 08/28/ | Telephone | [facility] | Ashley Chávez | Other (Patient has | | 2019 | | CARDIOLOGY [place] Abad, Automatic Data Processing Planner | questions about | | | | [address] | | monitor. ) | | | | [place] | | | | | | [address] | | | | | | [phone] | | | +--------+ + + + [...] [place] | | | | | | [address] | | | | | | | | +--------+---------+ + + + documented as of this encounter Visit Diagnoses Not on filedocumented in this encounter"
--- OUTSIDE RECORDS SUMMARY | ~2019-10-23 | XMS | Clinical Summary ---
Demographics + + + | Address | [address] | | | [place] [address] | + + + | Home Phone | | + + + | Preferred Language | Unknown | + + + | Marital Status | Single | + + + | Methodist Affiliation | Unknown | + + + [...] [place] | | | | | [address] | | + + + + + Care Team Providers + +------+ + | Care Retail And Restaurant Name | Role | Phone | + +------+ + PCP | Unavailable | + +------+ + Source Comments EDWARD is fully live on both [facility] Ambulatory and [facility] InPatient.[facility] Allergies Not [...] | [employer] | xxxxxxxxxx | 02/22/20 | [phone] | [address] | [employer] | | | RE A & | | 15-Pre | 1 | [address] | re | | | B | | sent | | [place] | | | | | | | | [address] | | + +--------+ +--------+ + +--------+ + +--------+ +--------+ + + | Guarantor Name | Accoun | Relation to | Date | Phone | Billing Address | | | t Type | Patient | of | | | | | | | | | | + +--------+ +--------+ + + | CINDY ARNDT | Person | Self | [birth year] | [address] | | al/Fam | | 1955 | [phone] | [address] [place] | | | [place]onte | | | 5 (Home) | [address] | + +--------+ +--------+ + +"
--- OUTSIDE RECORDS SUMMARY | ~2019-10-23 | XMS | Encounter Summary ---
Demographics + + + | Address | [address] | | | [place] [address] | + + + | Home Phone [...] [place] | | | | | [address] | | + + + + + Care Team Providers + +------+ + | Care Soil Sampler Name | Role | Phone | + [...] + + | 07/24/ | Telephone | [facility] | Ashley Chávez | Other (Patient is | | 2019 | | CARDIOLOGY [place] Abad, Computational Scientist | worried about paying | | | | [address] | | for monitor. ) | | | | [place] | | | | | | [address] | | | | | | [phone] | | | +--------+ + + + [...] [place] | | | | | | [address] | | | | | | | | +--------+---------+ + + + documented as of this encounter Visit Diagnoses Not on filedocumented in this encounter"
--- OUTSIDE RECORDS SUMMARY | ~2019-10-23 | XMS | Encounter Summary ---
Demographics + + + | Address | [address] | | | [place] [address] | + + + | Home Phone [...] [place], [place] | | | | | [address] | | + + + + + Care Team Providers + +------+ + | Care Back Tender Fourdrinier Name | Role | Phone | + +------+ + PCP | Unavailable | + +------+ + Encounter Details +--------+ + + + + | Date | Type | Department | Care Team | Description | +--------+ + + + + | 12/06/ | Hospital | [facility] | | | | 1994 | Encounter | MED CTR LABORATORY | | | | | | [address] | | | | | | [place] | | | | | | [address] | | | | | | [phone] | | | +--------+ + + + [...] | | | | | [place] | | | | | | [address] | | | | | | | | +--------+---------+ + + + documented as of this encounter Visit Diagnoses Not on filedocumented in this encounter"
--- OUTSIDE RECORDS SUMMARY | ~2019-10-23 | XMS | Encounter Summary ---
Demographics + + + | Address | [address] | | | [place] [address] | + + + | Home Phone [...] [place], [place] | | | | | [address] | | + + + + + Care Team Providers + +------+ + | Care Gasoline Locomotive Crane Operator Name | Role | Phone | + +------+ + PCP | Unavailable | + +------+ + Encounter Details +--------+ + + + + | Date | Type | Department | Care Team | Description | +--------+ + + + + | 06/17/ | Hospital | [facility] | | | | 1991 - | Encounter | MED CTR GENERIC PSY | | | | | | CONV DEPT [address] | | | | 06/18/ | | [address], | | | | 1991 | | [place] [address] | | | | | | [phone] | | | +--------+ + + + [...] [place] | | | | | | [address] | | | | | | | | +--------+---------+ + + + documented as of this encounter Visit Diagnoses Not on filedocumented in this encounter"
--- OUTSIDE RECORDS SUMMARY | ~2019-10-23 | XMS | Encounter Summary ---
Demographics + + + | Address | [address] | | | [place] [address] | + + + | Home Phone [...] [place], [place] | | | | | [address] | | + + + + + Care Team Providers + +------+ + | Care Tufting Supervisor Name | Role | Phone | + +------+ + PCP | Unavailable | + +------+ + Encounter Details +--------+ + + + + | Date | Type | Department | Care Team | Description | +--------+ + + + + | 04/01/ | Hospital | [facility] | | | | 1998 | Encounter | MED CTR XRAY [address] | | | | | | [address] | | | | | | [place] [address] | | | | | | [phone] | | | +--------+ + + + [...] | | | | | [place] | | | | | | [address] | | | | | | | | +--------+---------+ + + + documented as of this encounter Visit Diagnoses Not on filedocumented in this encounter"
--- OUTSIDE RECORDS SUMMARY | ~2019-10-23 | XMS | Encounter Summary ---
Demographics + + + | Address | [address] | | | [place] [address] | + + + | Home Phone [...] [place] | | | | | [address] | | + + + + + Care Team Providers + +------+ + | Care Lead Blender Name | Role | Phone | + [...] + | 09/26/ | Refill | [facility] | Frandy Teresa, | Medication Refill | | 2013 | | NEUROSURGERY [address] | DO [address] | | | | | [address] | [address] [place], [place] | | | | | [place], [place] | [id number] | | | | | [address] | | | | | | [phone] | | | +--------+--------+ + + + [...] | | | | | [place] | | | | | | [address] | | | | | | | | +--------+---------+ + + + documented as of this encounter Visit Diagnoses Not on filedocumented in this encounter"
--- OUTSIDE RECORDS SUMMARY | ~2019-10-23 | XMS | Encounter Summary ---
Demographics + + + | Address | [address] | | | [place] [address] | + + + | Home Phone [...] [place], [place] | | | | | [address] | | + + + + + Care Team Providers + +------+ + | Care Dress Shoe Inspector Name | Role | Phone | + +------+ + PCP | Unavailable | + +------+ + Encounter Details +--------+ + + + + | Date | Type | Department | Care Team | Description | +--------+ + + + + | 01/16/ | Hospital | [facility] | | | | 2002 | Encounter | MED CTR XRAY [address] | | | | | | [address] | | | | | | [place] [address] | | | | | | [phone] | | | +--------+ + + + [...] | | | | | [place] | | | | | | [address] | | | | | | | | +--------+---------+ + + + documented as of this encounter Visit Diagnoses Not on filedocumented in this encounter"
--- OUTSIDE RECORDS SUMMARY | ~2019-10-23 | XMS | Encounter Summary ---
Demographics + + + | Address | [address] | | | [place] [address] | + + + | Home Phone [...] [place] | | | | | [address] | | + + + + + Care Team Providers + +------+ + | Care Tailor Helper Name | Role | Phone | [...] + + | 06/12/ | Office | [facility] | Chris Nicole, | Spondylisthesis | | 2013 | Visit | NEUR[address]URGERY [address] | PA-C [address] | (Primary Dx); | | | | [address] | [place] | Radiculopathy of | | | | [place], [place] | [address] | leg; Lumbar spine | | | | [address] | | instability; Lumbar | | | | [phone] | | spondylosis; | | | | [...] f rom the original. ZANE Castillo [address] [place] [address] FAX: NEUROSURGERY HISTORY AND PHYSICAL EXAMINATION CHIEF [...] Take 15 mg by mouth nightl y. [place]-3 Fatty Acids (FISH OIL CONCENTRATE) 1000 MG [...] has no apparent deficits with short or long-term memory. CRANIAL NERVES: II: Acuity is intact. [...] Intrinsics 5 5 Ulnar Intrinsics 5 5 Order Filler Strength 5 5 Hip Flexion 5 4* [...] [place] | | | | | | [address] | | | | | | | [...]
--- OUTSIDE RECORDS SUMMARY | ~2019-10-23 | XMS | Encounter Summary ---
Demographics + + + | Address | [address] [address] [facility] [address] | | | [place] [address] | + + + | Home Phone | | + + + | Preferred Language | Unknown | + + + | Marital Status | Single | + + + | Anabaptist Affiliation | Unknown | + + + [...] [place] | | | | | [address] | | + + + + + Care Team Providers + +------+ + | Care Student Loan Counselor Name | Role | Phone | + [...] | Transcriptions | + + | Interface, Agronomy Teacher In - 10/24/2006 3:09 AM PST | | [facility] | | Road [place], [place] [address] [place] | | [facility] CenterOPERATION RECORDMed Rec No.: [id number] Date: [...]
--- OUTSIDE RECORDS SUMMARY | ~2019-10-23 | XMS | Encounter Summary ---
Demographics + + + | Address | [address] | | | [place] [address] | + + + | Home Phone [...] [place], [place] | | | | | [address] | | + + + + + Care Team Providers + +------+ + | Care Aircraft Machinist Name | Role | Phone | + +------+ + PCP | Unavailable | + +------+ + Encounter Details +--------+ + + + + | Date | Type | Department | Care Team | Description | +--------+ + + + + | 07/17/ | Hospital | [facility] | | | | 1997 - | Encounter | MED CTR GENERIC PSY | | | | | | CONV DEPT [address] | | | | 07/25/ | | [address], | | | | 1997 | | [place] [address] | | | | | | [phone] | | | +--------+ + + + [...] [place] | | | | | | [address] | | | | | | | | +--------+---------+ + + + documented as of this encounter Visit Diagnoses Not on filedocumented in this encounter"
--- OUTSIDE RECORDS SUMMARY | ~2019-10-23 | XMS | Encounter Summary ---
Demographics + + + | Address | [address] | | | [place] [address] | + + + | Home Phone [...] [place] | | | | | [address] | | + + + + + Care Team Providers + +------+ + | Care Pastry Mixer Name | Role | Phone | [...] | | | | | | [place] | | | | | | [address] | | | | | | [phone] | | | +--------+ + + + [...] [place] | | | | | | [address] | | | | | | | | +--------+---------+ + + + documented as of this encounter Visit Diagnoses Not on filedocumented in this encounter"
--- OUTSIDE RECORDS SUMMARY | ~2019-10-23 | XMS | Encounter Summary ---
Demographics + + + | Address | [address] | | | [place] [address] | + + + | Home Phone [...] [place] | | | | | [address] | | + + + + + Care Team Providers + +------+ + | Care Signals Intelligence Superintendent Name | Role | Phone | + [...] | | [address] | [place] [address] | | | | | [place], [place] | [phone] | | | | | [address] | | | | | | [phone] | | | +--------+ + + + [...] | | | | | | [place] [facility] | | | | | | [address] | | | | | | | | +--------+---------+ + + + documented as of this encounter Visit Diagnoses Not on filedocumented in this encounter"
--- OUTSIDE RECORDS SUMMARY | ~2019-10-23 | XMS | Encounter Summary ---
Demographics + + + | Address | [address] | | | [place] [address] | + + + | Home Phone [...] [place], [place] | | | | | [address] | | + + + + + Care Team Providers + +------+ + | Care Rn Homecare Name | Role | Phone | + +------+ + PCP | Unavailable | + +------+ + Encounter Details +--------+ + + + + | Date | Type | Department | Care Team | Description | +--------+ + + + + | 08/21/ | Hospital | [facility] | | | | 1996 | Encounter | MED CTR LABORATORY | | | | | | [address] | | | | | | [place] | | | | | | [address] | | | | | | [phone] | | | +--------+ + + + [...] | | | | | [place] | | | | | | [address] | | | | | | | | +--------+---------+ + + + documented as of this encounter Visit Diagnoses Not on filedocumented in this encounter"
--- OUTSIDE RECORDS SUMMARY | ~2019-10-23 | XMS | Encounter Summary ---
Demographics + + + | Address | [address] | | | [place] [address] | + + + | Home Phone [...] [place] | | | | | [address] | | + + + + + Care Team Providers + +------+ + | Care Nutrition And Dietetics Instructor Name | Role | Phone | + +------+ + | Basim Bolanos MD | PCP | | + +------+ + Encounter Details +--------+ + + + + | Date | Type | Department | Care Team | Description | +--------+ + + + + | 03/01/ | Abstract | [facility] [place] | [facility], | | | 2012 | | GASTROENTEROLOGY | FORTUNATO Thomas [address] | | | | | [address] [place] | [place], [address] | | | | | [address] [place], [place] | [place], [place] | | | | | [address] | [address] | | | | | [phone] | | | +--------+ + + + [...] [place] | | | | | | [address] | | | | | | | | +--------+---------+ + + + documented as of this encounter Visit Diagnoses Not on filedocumented in this encounter"
--- OUTSIDE RECORDS SUMMARY | ~2019-10-23 | XMS | Encounter Summary ---
Demographics + + + | Address | [address] | | | [place] [address] | + + + | Home Phone [...] [place] | | | | | [address] | | + + + + + Care Team Providers + +------+ + | Care Roll Weigher Name | Role | Phone | + [...] + + | 07/06/ | Emergency | [facility] | Yunior Sherman, | Chest pain, | | 2014 | | MED CTR EMERGENCY | MD [address] | unspecified chest | | | | CENTER [address] | [place], [place] | pain type (Primary | | | | [place], [place] | [address] | Dx) | | | | [address] | | | | | | [phone] | | | +--------+ + + + [...] sent through Care Everywhere.CHEST PAIN, NON CARDIAC (PASHTO)documented in this encounter Medications at Time of [...] 0 | | | | (VITAMIN D-3) [address] | mouth Once a week. | | [...] | | | | | ([facility]) | | | | | | + [...] + + + +---------+ + + | [place]-3 Fatty | Take 1,000 mg by | [...] [place] | | | | | | [address] | | | | | | | [...] [address] | [place] | [phone] | | [facility] | | [address] | | | - LABORATORY | | [...] | + + + + + | [address] | [address] | [place] | [phone] | | [facility] | | [address] | | | - LABORATORY | | [...] | | | | | | [employer] | | | | | [...] + + | Performing | Address | City/State/[facility] | Phone Number | | Organization | | | | + + + + + | [facility] | [address] | [place] | [phone] | | [facility] | | [address] | | | - LABORATORY | | [...] | | MEDICAL | | | | mL/min/1.32m4Obcx than | | CENTER - | | [...] [address] | [place] | [phone] | | [facility] | | [address] | | | - LABORATORY | | [...] [address] | [place] | [phone] | | [facility] | | [address] | | | - LABORATORY | | [...] | | | | MD NAZARIO JON ([id number]) | | | | | | on [...]
--- OUTSIDE RECORDS SUMMARY | ~2019-10-23 | XMS | Encounter Summary ---
Demographics + + + | Address | [address] | | | [place] [address] | + + + | Home Phone [...] [place] | | | | | [address] | | + + + + + Care Team Providers + +------+ + | Care Supervisor Specialty Plant Name | Role | Phone | + [...] | | | | | pain, | [place], [place] | | | | | | bilateral | [address] | | | | | | Degenerative | Phone: | | | | | | disc | [phone] | | | | | | disease, | Fax: | | | | | | lumbar | [phone] | | | | | | Spinal [...] [address] | [address] [place], [place] | (Primary Dx); Knee | | | | [place], [place] | [address] | pain, bilateral; | | | | [address] | | DEGENERATIVE DISC | | | | [phone] | | DISEASE, LUMBAR | | | [...] | | | | | [place] | | | | | | [id number] | | | | | | | [...]
--- OUTSIDE RECORDS SUMMARY | ~2019-10-23 | XMS | Encounter Summary ---
Demographics + + + | Address | [address] | | | [place] [address] | + + + | Home Phone [...] [place] | | | | | [address] | | + + + + + Care Team Providers + +------+ + | Care Bull Rider Name | Role | Phone | + +------+ + | Natalee Andersen NP | PCP | | + +------+ + Encounter Details +--------+ + + + + | Date | Type | Department | Care Team | Description | +--------+ + + + + | 06/26/ | Hospital | [facility] | Heather Cordero PT | | | 2014 | Encounter | MED CTR ACUTE | [address] | | | | | PHYSICAL THERAPY | [place] | | | | | [address] [place] | [address] | | | | | [place] [address] | | | | | | [phone] | | | +--------+ + + + [...] + + + +---------+ + + | [place]-3 Fatty | Take 1,000 mg by [...] [place] | | | | | | [address] | | | | | | | | +--------+---------+ + + + documented as of this encounter Visit Diagnoses Not on filedocumented in this encounter"
--- OUTSIDE RECORDS SUMMARY | ~2019-10-23 | XMS | Encounter Summary ---
Demographics + + + | Address | [address] | | | [place] [address] | + + + | Home Phone [...] [place], [place] | | | | | [address] | | + + + + + Care Team Providers + +------+ + | Care Dog Warden Name | Role | Phone | + +------+ + PCP | Unavailable | + +------+ + Encounter Details +--------+ + + + + | Date | Type | Department | Care Team | Description | +--------+ + + + + | 04/16/ | [facility] | [facility] | Deon Gonzales | | | 2005 | Encounter | MED CTR SLEEP | MD Laureano [address] | | | | | [place] [address] | [place] | | | | | [place], [place] | [place] [address] | | | | | [address] | [phone] | | | | | [phone] | | | +--------+ + + + [...] [place] | | | | | | [address] | | | | | | | | +--------+---------+ + + + documented as of this encounter Visit Diagnoses Not on filedocumented in this encounter"
--- OUTSIDE RECORDS SUMMARY | ~2019-10-23 | XMS | Encounter Summary ---
Demographics + + + | Address | [address] | | | [place] [address] | + + + | Home Phone [...] [place] | | | | | [address] | | + + + + + Care Team Providers + +------+ + | Care Cissp Name | Role | Phone | + +------+ + | Natalee Andersen NP | PCP | | + +------+ + Encounter Details +--------+ + + + + | Date | Type | Department | Care Team | Description | +--------+ + + + + | 07/25/ | Hospital | [facility] | Frandy Teresa, | Status post lumbar | | 2014 | Encounter | MED CTR XRAY [address] | DO [address] | spinal fusion | | | | [place] | [address] [place], [place] | | | | | [place] [address] | [address] | | | | | [phone] | | | +--------+ + + + [...] + + + +---------+ + + | [place]-3 Fatty | Take 1,000 mg by | [...] [place] | | | | | | [address] | | | | | | | [...] + | MISCELLANEOUS LAB | | | [phone] | + +---------+ + + | MISCELANIOUS LAB | | | [phone] | + +---------+ + + documented in this encounter Visit Diagnoses + + | Diagnosis | + + | Status post lumbar spinal fusion Arthrodesis status | + + documented in this encounter"
--- OUTSIDE RECORDS SUMMARY | ~2019-10-23 | XMS | Encounter Summary ---
Demographics + + + | Address | [address] | | | [place] [address] | + + + | Home Phone [...] + + + | Author | [facility] | + + + | Organization | [facility] | + + + | Address | Unknown | + + + | Phone | Unavailable | + + + Support + + + + + | Name | Relationship | Address | Phone | + + + + + | Kelsy Bautista | E[address] | [address] | | | | | [place] | | | | | [address] | | + + + + + Care Team Providers + +------+ + | Care Naphthalene Still Operator Name | Role | Phone | [...] Clinic | | | | | | [facility], [address] | | | | | | [place], [place] | | | | | | [address] | | | | | | [phone] | | | +--------+ + + + [...] as of this encounter Progress Notes Interface, Internal Controls Consultant In - 12/11/2006 5:03 AM [facility] DATE: 07/03/97 INFECTIOUS DISEASE CLINIC: [...]
--- OUTSIDE RECORDS SUMMARY | ~2019-10-23 | XMS | Encounter Summary ---
Demographics + + + | Address | [address] | | | [place] [address] | + + + | Home Phone [...] [place] | | | | | [address] | | + + + + + Care Team Providers + +------+ + | Care Information Systems Project Manager Name | Role | Phone [...] + + | 08/14/ | Documentati | [facility] | Katharine Moncada, | Other (urgent | | 2019 | on | CARDIOLOGY [place] | Technologist | report) | | | | [address] | | | | | | [place] | | | | | | [address] | | | | | | [phone] | | | +--------+ + + + [...] [place] | | | | | | [address] | | | | | | | | +--------+---------+ + + + documented as of this encounter Visit Diagnoses Not on filedocumented in this encounter"
--- OUTSIDE RECORDS SUMMARY | ~2019-10-23 | XMS | Encounter Summary ---
Demographics + + + | Address | [address] | | | [place] [address] | + + + | Home Phone [...] [place] | | | | | [address] | | + + + + + Care Team Providers + +------+ + | Care Superintendent Car Construction Name | Role | Phone | [...] [address] | [address] [place], [place] | | | | | [place], [place] | [address] | | | | | [address] | | | | | | [phone] | | | +--------+ + + + [...] [place] | | | | | | [address] | | | | | | | [...] + | MISCELLANEOUS LAB | | | [phone] | + +---------+ + + | MISCELANIOUS LAB | | | [phone] | + +---------+ + + documented in this encounter Visit Diagnoses + + | Diagnosis | + + | Back pain - Primary Backache, unspecified | + + documented in this encounter"
--- OUTSIDE RECORDS SUMMARY | ~2019-10-23 | XMS | Encounter Summary ---
Demographics + + + | Address | [address] | | | [place] [address] | + + + | Home Phone [...] [place] | | | | | [address] | | + + + + + Care Team Providers + +------+ + | Care Catch Basin Cleaner Name | Role | Phone | [...] + + | 08/22/ | Documentati | [facility] | Katharine Moncada, | Other (urgent | | 2019 | on | CARDIOLOGY [place] | Technologist | report) | | | | [address] | | | | | | [place] | | | | | | [address] | | | | | | [phone] | | | +--------+ + + + [...] [place] | | | | | | [address] | | | | | | | | +--------+---------+ + + + documented as of this encounter Visit Diagnoses Not on filedocumented in this encounter"
--- OUTSIDE RECORDS SUMMARY | ~2019-10-23 | XMS | Encounter Summary ---
Demographics + + + | Address | [address] | | | [place] [address] | + + + | Home Phone [...] [place] | | | | | [address] | | + + + + + Care Team Providers + +------+ + | Care Slash Trimmer Name | Role | Phone | [...] + + | 08/13/ | Documentati | [facility] | Katharine Moncada, | Other (urgent | | 2019 | on | CARDIOLOGY [place] | Technologist | report) | | | | [address] | | | | | | [place] | | | | | | [address] | | | | | | [phone] | | | +--------+ + + + [...] [place] | | | | | | [address] | | | | | | | | +--------+---------+ + + + documented as of this encounter Visit Diagnoses Not on filedocumented in this encounter"
--- OUTSIDE RECORDS SUMMARY | ~2019-10-23 | XMS | Encounter Summary ---
Demographics + + + | Address | [address] [address] [facility] [address] | | | [place] [address] | + + + | Home Phone [...] [place] | | | | | [address] | | + + + + + Care Team Providers + +------+ + | Care Addiction Counselor Name | Role | Phone | [...] | Transcriptions | + + | Interface, Hand Gluer And Slicer In - 10/24/2006 3:09 AM PST | | [facility] | | Road [place], [place] [address] [place] | | [facility] HospitalOPERATION RECORDMed Rec No.: [id number] Date: | [...]
--- OUTSIDE RECORDS SUMMARY | ~2019-10-23 | XMS | Encounter Summary ---
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 ) | | | | [place] | | | | | | [address] | | | | | | [phone] | | | +--------+ + + + [...] [place] | | | | | | [address] | | | | | | | | +--------+---------+ + + + documented as of this encounter Visit Diagnoses Not on filedocumented in this encounter"
--- OUTSIDE RECORDS SUMMARY | ~2019-10-23 | XMS | Encounter Summary ---
Demographics + + + | Address | [address] | | | [place] [address] | + + + | Home Phone [...] [place] | | | | | [address] | | + + + + + Care Team Providers + +------+ + | Care Tank Bottom Assembler Name | Role | Phone | + +------+ + | Natalee Andersen NP | PCP | | + +------+ + Encounter Details +--------+ + + + + | Date | Type | Department | Care Team | Description | +--------+ + + + + | 06/25/ | Hospital | [facility] | Latricia Feliciano | | | 2014 | Encounter | MED CTR ACUTE | D, PT [address] | | | | | PHYSICAL THERAPY | [place] | | | | | [address] | [address] | | | | | [place] [address] | | | | | | [phone] | | | +--------+ + + + [...] + + + +---------+ + + | [place]-3 Fatty | Take 1,000 mg by | [...] [place] | | | | | | [address] | | | | | | | | +--------+---------+ + + + documented as of this encounter Visit Diagnoses Not on filedocumented in this encounter"
--- OUTSIDE RECORDS SUMMARY | ~2019-10-23 | XMS | Encounter Summary ---
Demographics + + + | Address | [address] | | | [place] [address] | + + + | Home Phone [...] [place] | | | | | [address] | | + + + + + Care Team Providers + +------+ + | Care Outsoles Channel Opener Name | Role | Phone | + [...] + + | 02/26/ | Emergency | [facility] | [place], | CVA (cerebral | | 2015 | | MED CTR EMERGENCY | Davey Simons MD [address] | vascular accident) | | | | CENTER [address] | [address] [facility] | ([facility]) (Primary Dx) | | | | [place], [place] | [place] [address] | | | | | [address] | [phone] | | | | | [phone] | | | +--------+ + + + [...] + + + +---------+ + + | [place]-3 Fatty | Take 1,000 mg by | [...] | | | | | [place] | | | | | | [address] | | | | | | | [...] mL/min/1.73m2 | [facility] | | | [place] | RATE,ESTIMATED | | MEDICAL | | | | mL/min/1.76w9Qqtc than | | CENTER - | | [...] | 9.1 | 8.3 - 10.5 | [facility] | | | | | mg/dL [...] [address] | [place] | [phone] | | [facility] | | [address] | | | - LABORATORY | | [...] [address] | [place] | [phone] | | [facility] | | [address] | | | - LABORATORY | | [...] | ---- | | | 02/26/2015 13:10 [facility] | | | Emergency -numbness/facial droop 02/26/2015 08:15 [facility] | | | [facility] 02/19/2015 | | | 10:15 [facility] | | | [...] as uncontrolled 02/17/2015 | | | 08:22 [facility] Emergency | | | -Long-term [...] and uterus 02/14/2015 | | | 09:56 [facility] Emergency | | | -Disturbance [...] status 02/06/2015 10:46 | | | [facility] | | | -Generalized pain [...] residual deficits | | | 02/01/2015 21:38 [facility] | | | Emergency 01/22/2015 14:00 [facility] | | | Urgent Care [...] intervertebral disc | | | 01/16/2015 12:15 [facility] | | | Urgent Care [...] other | | | medications 01/07/2015 11:45 [facility] | | | Urgent Care [...] acquired hypothyroidism 12/30/2014 | | | 17:54 [facility] Emergency | | | -Obstructive [...] essential hypertension | | | 12/30/2014 14:30 [facility] | | | Urgent Care [...] | | -Cramp of limb 11/29/2014 16:15 [facility] | | | Urgent Care [...] ------ | | | --------- [address] | | | [facility] [address] [facility] [address] | | | [facility] 7 0 Total | | | [...]
--- OUTSIDE RECORDS SUMMARY | ~2019-10-23 | XMS | Encounter Summary ---
Demographics + + + | Address | [address] | | | [place] [address] | + + + | Home Phone [...] [place] | | | | | [address] | | + + + + + Care Team Providers + +------+ + | Care Waiter/Waitress Tourist Class Name | Role | Phone | [...] | | | spondylolist | | [address] | | | | | hesis | | [place], | | | | | Spinal | | [place] [address] | | | | | stenosis, | | Phone: | | | | | lumbar | | [phone] | | | | | region, | | Fax: | | | | | without | | [phone] | | | | | neurogenic | [...] + + | 07/02/ | Surgery | [facility] | Frandy Teresa, | MIS L5-S1 | | 2013 | | MED CTR OR INTRA OP | DO [address] | TRANSFORAMINAL | | | | [address] | [place] [address] [place] | LUMBAR INTERBODY | | | | [place] | [phone] | FUSION | | | | [address] | | | | | | [phone] | | | +--------+---------+ + + + [...] might be different fro m the original. [facility] DISCHARGE SUMMARY PATIENT NAME: Cindy Arndt [...] Stable for discharge to SNF. DISPOSITION: SNF ([facility]) DISCHARGE MEDICATIONS Medications prior to admission [...] Take 15 mg by mouth nightl y. [place]-3 Fatty Acids (FISH OIL CONCENTRATE) 1000 MG [...] + + + +---------+ + + | [place]-3 Fatty | Take 1,000 mg by | [...] -DC plan: SNF versus home with [facility] any time. aria T Neff RN - 07/04/2014 6:56 PM PDTFoley cath dc'd and MARI drain dc'd no problems. Chris Lynn PA-C - 07/04/2014 7:43 AM PDT [facility] PROGRESS NOTE Pt. Name/Age/: Cindy Arndt 58 y.o. 1955 Med. Record Number: [id number] Date of admission: 07/02/2014 Subjective: The patient [...] home medications. D/C plan: Home tomorrow with [facility]. D/c mair drain and riley cath today. D/c screening specialist. Patient Active Problem List Diagnosis LUMBAR DISC [...] signed by: Chris Nicole, 07/04/2014 7:45 [facility] Chris Lynn PA-C - 07/03/2014 7:13 AM PDT . [facility] PROGRESS NOTE Pt. Name/Age/: Cindy Arndt 58 y.o. 1955 Med. Record Number: [id number] Date of admission: 07/02/2014 Subjective: The patient [...] Electronically signed by: Chris Nicole, 07/03/2014 7:13 [facility] Ton Johnston, KRIS - 07/03/2014 6:50 AM [...] | | | | | [place] | | | | | | [address] | | | | | | | [...] + | [facility] | [address] | [place], [place] | [phone] | | [facility] | | [address] | | | - LABORATORY | | | | + + + + + | [facility] | [address] | [place], [place] | | | [facility] | | [address] | | | - LABORATORY | | [...] + | [facility] | [address] | [place] | [phone] | | [facility] | | [address] | | | - LABORATORY | | | | + + + + + | [facility] | [address] | [place] | | | [facility] | | [address] | | | - LABORATORY | | [...] + | [facility] | [address] | [place], [place] | [phone] | | [facility] | | [address] | | | - LABORATORY | | | | + + + + + | [facility] | [address] | [place], [place] | | | [facility] | | [address] | | | - LABORATORY | | [...] + | [facility] | [address] | [place] | [phone] | | [facility] | | [address] | | | - LABORATORY | | | | + + + + + | [facility] | [address] | [place], [place] | | | [facility] | | [address] | | | - LABORATORY | | [...] + | [facility] | [address] | [place], [place] | [phone] | | [facility] | | [address] | | | - LABORATORY | | | | + + + + + | [facility] | [address] | [place] | | | [facility] | | [address] | | | - LABORATORY | | [...] + | [facility] | [address] | [place] | [phone] | | [facility] | | [address] | | | - LABORATORY | | | | + + + + + | [facility] | [address] | [place] | | | [facility] | | [address] | | | - LABORATORY | | [...] + + | Performing | Address | City/State[facility] | Phone Number | | Organization | | | | + + + + + | [facility] | [address] | [place] | [phone] | | [facility] | | [address] | | | - LABORATORY | | | | + + + + + | [facility] | [address] | [place] | | | [facility] | | [address] | | | - LABORATORY | | [...] + | [facility] | [address] | [place] | [phone] | | [facility] | | [address] | | | - LABORATORY | | | | + + + + + | [facility] | [address] | [place] | | | [facility] | | [address] | | | - LABORATORY | | [...] [address] | [place] | [phone] | | [facility] | | [address] | | | - LABORATORY | | | | + + + + + | [facility] | [address] | [place], [place] | | | [facility] | | [address] | | | - LABORATORY | | [...] | of hardware for posterior fusion from [id number] S1 with interbody hardware at L5-S1. The [...] + | MISCELLANEOUS LAB | | | [phone] | + +---------+ + + | MISCELANIOUS LAB | | | [phone] | + +---------+ + + POC Glucose [...] + | [facility] | [address] | [place] | [phone] | | [facility] | | [address] | | | - LABORATORY | | | | + + + + + | [facility] | [address] | [place] | | | [facility] | | [address] | | | - LABORATORY | | [...] + | [facility] | [address] | [place], [place] | [phone] | | [facility] | | [address] | | | - LABORATORY | | | | + + + + + | [facility] | [address] | [place] | | | [facility] | | [address] | | | - LABORATORY | | [...] | | | POC | | | [facility] | | | | | | [...] + | [facility] | [address] | [place] | [phone] | | [facility] | | [address] | | | - LABORATORY | | | | + + + + + | [facility] | [address] | [place] | | | [facility] | | [address] | | | - LABORATORY | | [...] + | [facility] | [address] | [place] | [phone] | | [facility] | | [address] | | | - LABORATORY | | | | + + + + + | [facility] | [address] | [place] | | | [facility] | | [address] | | | - LABORATORY | | [...] + | [facility] | [address] | [place], [place] | [phone] | | [facility] | | [address] | | | - LABORATORY | | | | + + + + + | [facility] | [address] | [place], [place] | | | [facility] | | [address] | | | - LABORATORY | | [...] ST. | [address] | [place] | | | [facility] | | [address] | | | - BLOOD BANK | [...] mLs | | Surgical | | 1:200,000 0.25-1:043081 % | | 14 12:42 | | [...]
--- OUTSIDE RECORDS SUMMARY | ~2019-10-23 | XMS | Encounter Summary ---
Demographics + + + | Address | [address] | | | [place] [address] | + + + | Home Phone [...] [place] | | | | | [address] | | + + + + + Care Team Providers + +------+ + | Care Dip Stand Loader Name | Role | Phone | + [...] + | 12/03/ | Refill | [facility] | Frandy Teresa, | Medication Refill | | 2014 | | NEUROSURGERY [address] | DO [address] | | | | | [address] | [place] [place], [place] | | | | | [place], [place] | [phone] | | | | | [address] | | | | | | [phone] | | | +--------+--------+ + + + [...] | | | | | [place] | | | | | | [address] | | | | | | | | +--------+---------+ + + + documented as of this encounter Visit Diagnoses Not on filedocumented in this encounter"
--- OUTSIDE RECORDS SUMMARY | ~2019-10-23 | XMS | Encounter Summary ---
Demographics + + + | Address | [address] | | | [place] [address] | + + + | Home Phone [...] [place] | | | | | [address] | | + + + + + Care Team Providers + +------+ + | Care Deputy Clerk Of Court Name | Role | Phone | + [...] + + | 07/30/ | Telephone | 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
--- OUTSIDE RECORDS SUMMARY | ~2019-10-23 | XMS | Encounter Summary ---
Demographics + + + | Address | [address] | | | [place] [address] | + + + | Home Phone [...] + + + | Author | [facility] | + + + | Organization | [facility] | + + + | Address | Unknown | + + + | Phone | Unavailable | + + + Support + + + + + | Name | Relationship | Address | Phone | + + + + + | Kelsy Bautista | [address] | [address] | | | | | [place] | | | | | [address] | | + + + + + Care Team Providers + +------+ + | Care Paymaster Of Purses Name | Role | Phone | + [...] | | | | | | [place], | | | | | | [place] [address] | | | | | | [phone] | | | +--------+ + + + [...] | | + +---------+ + + | [facility] DEPARTMENT OF | | | | | RADIOLOGY | | | | + +---------+ + + documented in this encounter Visit Diagnoses Not on filedocumented in this encounter"
--- OUTSIDE RECORDS SUMMARY | ~2019-10-23 | XMS | Encounter Summary ---
Demographics + + + | Address | [address] | | | [place] [address] | + + + | Home Phone [...] [place] | | | | | [address] | | + + + + + Care Team Providers + +------+ + | Care Cement Truck Loader Name | Role | Phone | [...] + + | 08/15/ | Documentati | [facility] | Katharine Moncada, | Other (urgent | | 2019 | on | CARDIOLOGY [place] | Technologist | report) | | | | [address] | | | | | | [place] | | | | | | [address] | | | | | | [phone] | | | +--------+ + + + [...] [place] | | | | | | [address] | | | | | | | | +--------+---------+ + + + documented as of this encounter Visit Diagnoses Not on filedocumented in this encounter"
--- OUTSIDE RECORDS SUMMARY | ~2019-10-23 | XMS | Encounter Summary ---
Demographics + + + | Address | [address] | | | [place] [address] | + + + | Home Phone [...] [place] | | | | | [address] | | + + + + + Care Team Providers + +------+ + | Care Crystallizer Operator Name | Role | Phone | [...] + + | 08/16/ | Documentati | [facility] | Katharine Moncada, | Other (urgent | | 2019 | on | CARDIOLOGY [place] | Technologist | report) | | | | [address] | | | | | | [place] | | | | | | [address] | | | | | | [phone] | | | +--------+ + + + [...] [place] | | | | | | [address] | | | | | | | | +--------+---------+ + + + documented as of this encounter Visit Diagnoses Not on filedocumented in this encounter"
--- OUTSIDE RECORDS SUMMARY | ~2019-10-23 | XMS | Encounter Summary ---
Demographics + + + | Address | [address] | | | [place] [address] | + + + | Home Phone [...] [place] | | | | | [address] | | + + + + + Care Team Providers + +------+ + | Care Sterilisation Technician Name | Role | Phone | [...] | Office | [facility] | Deon Gonzales | ROGERS (obstructive | | 2012 | Visit | SLEEP DISORDER [address] | MD [address] | sleep apnea) | | | | [address] [place] | [address] [place] | (Primary Dx); | | | | [place] [address] | [place] [address] | Sleepiness | | | | [phone] | [phone] | | | | | | | [...] differen t from the original. 03/06/13 1000 [place] Sleepiness Scale Sitting and reading 3 Watching [...] by mouth Daily., Disp: , Rfl: ; [place]-3 Fatty Acids (FISH OIL CONCENTRATE) 1000 MG [...] | | | | | [place] | | | | | | [phone] | | | | | | | | +--------+---------+ + + + documented as of this encounter Visit Diagnoses + + | Diagnosis | + + | ROGERS (obstructive sleep apnea) - Primary Obstructive sleep apnea (adult) (pediatric) | + + | Sleepiness Other alteration of consciousness | + + documented in this encounter"
--- OUTSIDE RECORDS SUMMARY | ~2019-10-23 | XMS | Encounter Summary ---
Demographics + + + | Address | [address] | | | [place] [address] | + + + | Home Phone [...] [place], [place] | | | | | [address] | | + + + + + Care Team Providers + +------+ + | Care Enterprise Architect Manager Name | Role | Phone | + +------+ + PCP | Unavailable | + +------+ + Encounter Details +--------+ + + + + | Date | Type | Department | Care Team | Description | +--------+ + + + + | 06/30/ | Hospital | [facility] | | | | 2000 | Encounter | MED CTR EMERGENCY | | | | | | [address] | | | | | | [place] | | | | | | [address] | | | | | | [phone] | | | +--------+ + + + [...] | | | | | [place] | | | | | | [address] | | | | | | | | +--------+---------+ + + + documented as of this encounter Visit Diagnoses Not on filedocumented in this encounter"
--- OUTSIDE RECORDS SUMMARY | ~2019-10-23 | XMS | Encounter Summary ---
Demographics + + + | Address | [address] | | | [place] [address] | + + + | Home Phone [...] [place], [place] | | | | | [address] | | + + + + + Care Team Providers + +------+ + | Care Assistant Chief Train Dispatcher Name | Role | Phone | + +------+ + PCP | Unavailable | + +------+ + Encounter Details +--------+ + + + + | Date | Type | Department | Care Team | Description | +--------+ + + + + | 09/10/ | Hospital | [facility] | | | | 1992 | Encounter | MED CTR LABORATORY | | | | | | [address] | | | | | | [place] | | | | | | [address] | | | | | | [phone] | | | +--------+ + + + [...] | | | | | [place] | | | | | | [address] | | | | | | | | +--------+---------+ + + + documented as of this encounter Visit Diagnoses Not on filedocumented in this encounter"
--- OUTSIDE RECORDS SUMMARY | ~2019-10-23 | XMS | Encounter Summary ---
Demographics + + + | Address | [address] | | | [place] [address] | + + + | Home Phone [...] [place] | | | | | [address] | | + + + + + Care Team Providers + +------+ + | Care Short Order Cook Name | Role | Phone | + +------+ + | Adriano Patrick MD | PCP | | + +------+ + Reason for Visit +--------+ + | Reason | Comments | +--------+ + | Other | Patient calling to be seen sooner. | +--------+ + Encounter Details +--------+ + + + + | Date | Type | Department | Care Team | Description | +--------+ + + + + | 09/19/ | Telephone | [facility] | Ashley Chávez | Talia (Patient | | 2019 | | CARDIOLOGY [place] Abad, Information Systems Project Manager | calling to be seen | | | | [address] | | ) | | | | [place] | | | | | | [address] | | | | | | [phone] | | | +--------+ + + + [...] [place] | | | | | | [address] | | | | | | | | +--------+---------+ + + + documented as of this encounter Visit Diagnoses Not on filedocumented in this encounter"
--- OUTSIDE RECORDS SUMMARY | ~2019-10-23 | XMS | Encounter Summary ---
Demographics + + + | Address | [address] | | | [place] [address] | + + + | Home Phone [...] [place] | | | | | [address] | | + + + + + Care Team Providers + +------+ + | Care Junior Business Analyst Name | Role | Phone | + +------+ + | Basim Bolanos MD | PCP | | + +------+ + Encounter Details +--------+ + + + + | Date | Type | Department | Care Team | Description | +--------+ + + + + | 01/24/ | Abstract | [facility] [place] | [facility], | | | 2012 | | GASTROENTEROLOGY | FORTUNATO [address] | | | | | [address] | [place], [address] | | | | | [address] [place], [place] | [place], [place] | | | | | [address] | [address] | | | | | [phone] | | | +--------+ + + + [...] [place] | | | | | | [address] | | | | | | | | +--------+---------+ + + + documented as of this encounter Visit Diagnoses Not on filedocumented in this encounter"
--- OUTSIDE RECORDS SUMMARY | ~2019-10-23 | XMS | Encounter Summary ---
Demographics + + + | Address | [address] | | | [place] [address] | + + + | Home Phone [...] [place] | | | | | [address] | | + + + + + Care Team Providers + +------+ + | Care Electrical Control Assembler Name | Role | Phone | + +------+ + | Basim Bolnaos MD | PCP | | + +------+ + Reason for Visit + + + | Reason | Comments | + + + | Medication Refill | | + + + Encounter Details +--------+--------+ + + + | Date | Type | Department | Care Team | Description | +--------+--------+ + + + | 02/21/ | Refill | [facility] | Deon Gonzales | Medication Refill | | 2012 | | SLEEP DISORDER [address] | MD Laureano [address] | | | | | [address] [place] | [address] [place] | | | | | [place] [address] | [place] [address] | | | | | [phone] | [phone] | | | | | | | [...] [place] | | | | | | [address] | | | | | | | | +--------+---------+ + + + documented as of this encounter Visit Diagnoses + + | Diagnosis | + + | Obstructive sleep apnea (adult) (pediatric) - Primary | + + documented in this encounter"
--- OUTSIDE RECORDS SUMMARY | ~2019-10-23 | XMS | Encounter Summary ---
Demographics + + + | Address | [address] | | | [place] [address] | + + + | Home Phone [...] [place] | | | | | [address] | | + + + + + Care Team Providers + +------+ + | Care Law Enforcement Instructor Name | Role | Phone | + +------+ + | Basim Bolanos MD | PCP | | + +------+ + Encounter Details +--------+ + + + + | Date | Type | Department | Care Team | Description | +--------+ + + + + | 02/22/ | Abstract | [facility] [place] | [facility], | | | 2012 | | GASTROENTEROLOGY | FORTUNATO Thomas [address] | | | | | [address] [place] | [place], [address] | | | | | [address] [place], [place] | [place], [place] | | | | | [address] | [address] | | | | | [phone] | | | +--------+ + + + [...] [place] | | | | | | [address] | | | | | | | | +--------+---------+ + + + documented as of this encounter Visit Diagnoses Not on filedocumented in this encounter"
--- OUTSIDE RECORDS SUMMARY | ~2019-10-23 | XMS | Encounter Summary ---
Demographics + + + | Address | [address] | | | [place] [address] | + + + | Home Phone [...] [place] | | | | | [address] | | + + + + + Care Team Providers + +------+ + | Care Posting Machine Operator Name | Role | Phone [...] | [address] [place] | [place], [address] | | | | | [address] [place], [place] | [place], [place] | | | | | [address] | [address] | | | | | [phone] | | | +--------+ + + + [...] [place] | | | | | | [address] | | | | | | | | +--------+---------+ + + + documented as of this encounter Visit Diagnoses Not on filedocumented in this encounter"
--- OUTSIDE RECORDS SUMMARY | ~2019-10-23 | XMS | Encounter Summary ---
Demographics + + + | Address | [address] | | | [place] [address] | + + + | Home Phone [...] [place] | | | | | [address] | | + + + + + Care Team Providers + +------+ + | Care Kardex Clerk Name | Role | Phone | [...] + + | 10/22/ | Telephone | [facility] | Susu Peralta, | Other | | 2019 | | CARDIOLOGY [place] | DMITRIY | | | | | [address] | | | | | | [place], [place] | | | | | | [address] | | | | | | [phone] | | | +--------+ + + + [...] | | | | | [place] | | | | | | [id number] | | | | | | | | +--------+---------+ + + + documented as of this encounter Visit Diagnoses Not on filedocumented in this encounter"
--- OUTSIDE RECORDS SUMMARY | ~2019-10-23 | XMS | Encounter Summary ---
Demographics + + + | Address | [address] | | | [place] [address] | + + + | Home Phone [...] [place] | | | | | [address] | | + + + + + Care Team Providers + +------+ + | Care Health And Safety Consultant Name | Role | Phone | [...] | Transcriptions | + + | Interface, Granite Setter In - 11/04/2006 3:03 AM PST | | [address] | | [place], [place] [address] [facility] and | | ClinicsOPERATION RECORDMed [...] skin retractor was put in place. The [place] elevators wereused to separate the | | [...]
--- OUTSIDE RECORDS SUMMARY | ~2019-10-23 | XMS | Encounter Summary ---
Demographics + + + | Address | [address] | | | [place] [address] | + + + | Home Phone [...] [place], [place] | | | | | [address] | | + + + + + Care Team Providers + +------+ + | Care Compliance And Control Analyst Name | Role | Phone | [...] Location | | | | | | [phone] | | | +--------+ + + + [...] [place] | | | | | | [address] | | | | | | | | +--------+---------+ + + + documented as of this encounter Visit Diagnoses Not on filedocumented in this encounter"
--- OUTSIDE RECORDS SUMMARY | ~2019-10-23 | XMS | Encounter Summary ---
Demographics + + + | Address | [address] | | | [place] [address] | + + + | Home Phone [...] [place], [place] | | | | | [address] | | + + + + + Care Team Providers + +------+ + | Care Manager Basketball Name | Role | Phone | + +------+ + PCP | Unavailable | + +------+ + Encounter Details +--------+ + + + + | Date | Type | Department | Care Team | Description | +--------+ + + + + | 01/25/ | Hospital | [facility] | | | | 2002 | Encounter | MED CTR XRAY [address] | | | | | [address] | | | | | | [place] [address] | | | | | | [phone] | | | +--------+ + + + [...] | | | | | [place] | | | | | | [address] | | | | | | | | +--------+---------+ + + + documented as of this encounter Visit Diagnoses Not on filedocumented in this encounter"
--- OUTSIDE RECORDS SUMMARY | ~2019-10-23 | XMS | Encounter Summary ---
Demographics + + + | Address | [address] | | | [place] [address] | + + + | Home Phone [...] [place] | | | | | [address] | | + + + + + Care Team Providers + +------+ + | Care Environmental Compliance Inspector Name | Role | Phone | [...] + | 08/26/ | Refill | [facility] | Frandy Teresa, | Medication Refill | | 2013 | | NEUROSURGERY [address] | DO [address] | | | | | [address] | [address] [place], [place] | | | | | [place], [place] | [address] | | | | | [address] | | | | | | [phone] | | | +--------+--------+ + + + [...] | | | | | [place] | | | | | | [address] | | | | | | | | +--------+---------+ + + + documented as of this encounter Visit Diagnoses Not on filedocumented in this encounter"
--- OUTSIDE RECORDS SUMMARY | ~2019-10-23 | XMS | Encounter Summary ---
Demographics + + + | Address | [address] | | | [place] [address] | + + + | Home Phone [...] [place], [place] | | | | | [address] | | + + + + + Care Team Providers + +------+ + | Care Project Management It Specialist Name | Role | Phone | + +------+ + PCP | Unavailable | + +------+ + Encounter Details +--------+ + + + + | Date | Type | Department | Care Team | Description | +--------+ + + + + | 02/24/ | Hospital | [facility] | | | | 1997 - | Encounter | [facility] GENER[facility] | | | | | | CONV DEPT [address] | | | | 02/26/ | | [place], | | | | 1997 | | [place] [address] | | | | | | [phone] | | | +--------+ + + + [...] [place] | | | | | | [id number] | | | | | | | | +--------+---------+ + + + documented as of this encounter Visit Diagnoses Not on filedocumented in this encounter"
--- OUTSIDE RECORDS SUMMARY | ~2019-10-23 | XMS | Encounter Summary ---
Demographics + + + | Address | [address] | | | [place] [address] | + + + | Home Phone [...] [place], [place] | | | | | [address] | | + + + + + Care Team Providers + +------+ + | Care Business Instructor Name | Role | Phone | + +------+ + PCP | Unavailable | + +------+ + Encounter Details +--------+ + + + + | Date | Type | Department | Care Team | Description | +--------+ + + + + | 12/06/ | Hospital | [facility] | | | | 1994 | Encounter | MED CTR LABORATORY | | | | | | [address] | | | | | | [place] | | | | | | [address] | | | | | | [phone] | | | +--------+ + + + [...] | | | | | [place] | | | | | | [address] | | | | | | | | +--------+---------+ + + + documented as of this encounter Visit Diagnoses Not on filedocumented in this encounter"
--- OUTSIDE RECORDS SUMMARY | ~2019-10-23 | XMS | Encounter Summary ---
Demographics + + + | Address | [address] | | | [place] [address] | + + + | Home Phone [...] [place] | | | | | [address] | | + + + + + Care Team Providers + +------+ + | Care Quality Improvement Specialist Name | Role | Phone | [...] + | 03/04/ | Telephone | [facility] | Baudilio Newman | Other (Plavix) | | 2014 | | NEUROLOGY LAURIE | MD Pollo Need updated | | | | | [address], | address | | | | | [address] [place] | | | | | | [place] [address] | | | | | | [phone] | | | +--------+ + + + [...] [place] | | | | | | [address] | | | | | | | | +--------+---------+ + + + documented as of this encounter Visit Diagnoses Not on filedocumented in this encounter"
--- OUTSIDE RECORDS SUMMARY | ~2019-10-23 | XMS | Encounter Summary ---
Demographics + + + | Address | [address] | | | [place] [address] | + + + | Home Phone [...] [place], [place] | | | | | [address] | | + + + + + Care Team Providers + +------+ + | Care Point Of Care Specialist Name | Role | Phone | + +------+ + PCP | Unavailable | + +------+ + Encounter Details +--------+ + + + + | Date | Type | Department | Care Team | Description | +--------+ + + + + | 12/31/ | Hospital | [facility] | | | | 1996 | Encounter | MED CTR XRAY [address] | | | | | | [address] | | | | | | [place] [address] | | | | | | [phone] | | | +--------+ + + + [...] | | | | | [place] | | | | | | [address] | | | | | | | | +--------+---------+ + + + documented as of this encounter Visit Diagnoses Not on filedocumented in this encounter"
--- OUTSIDE RECORDS SUMMARY | ~2019-10-23 | XMS | Encounter Summary ---
Demographics + + + | Address | [address] | | | [place] [address] | + + + | Home Phone [...] + + + | Author | [facility] | + + + | Organization | [facility] | + + + | Address | Unknown | + + + | Phone | Unavailable | + + + Support + + + + + | Name | Relationship | Address | Phone | + + + + + | Kelsy Bautista | ECON | [address] | | | | | [place] | | | | | [address] | | + + + + + Care Team Providers + +------+ + | Care Bag Worker Name | Role | Phone | [...] Clinic | | | | | | [facility], [address] | | | | | | [place], [place] | | | | | | [address] | | | | | | [phone] | | | +--------+ + + + [...] as of this encounter Progress Notes Interface, Title Insurance Sales Representative In - 12/11/2006 5:03 AM [facility] DATE: 07/03/97 INFECTIOUS DISEASE CLINIC: [...]
--- OUTSIDE RECORDS SUMMARY | ~2019-10-23 | XMS | Encounter Summary ---
Demographics + + + | Address | [address] [address] | | | [place] [address] | + + + | Home Phone [...] [place] | | | | | [address] | | + + + + + Care Team Providers + +------+ + | Care Toll Patrolman Name | Role | Phone | + [...] | | | | | | [place] [address] | | | | | | [phone] | | | | | | | [...] in | | | | | | [place] with a | | | | | [...] | | | | | | [facility] | | | | | | Laboratory, [place], | | | | | | [place], delivered | | | | | | [...] by | | | | | | [id number]-[id number]: | | | | | | Increased [...] istryMHC-1: | | | | | | [id number] stain | | | | | | [...] + + + + | [facility] | [address] | [place] [address] | | | PATHOLOGY | [place] | | | + + + + + documented in this encounter Visit Diagnoses Not on filedocumented in this encounter
--- OUTSIDE RECORDS SUMMARY | ~2019-10-23 | XMS | Encounter Summary ---
Demographics + + + | Address | [address] | | | [place] [address] | + + + | Home Phone [...] [place] | | | | | [address] | | + + + + + Care Team Providers + +------+ + | Care Plier Worker Name | Role | Phone | [...] + + | 06/28/ | Telephone | [facility] | Ashley Chávez | Talia (Patient | | 2019 | | CARDIOLOGY [place] Abad, Pressure Washer | called to cancel her | | | | [address] | | appointment) | | | | [place] | | | | | | [address] | | | | | | [phone] | | | +--------+ + + + [...] [place] | | | | | | [address] | | | | | | | | +--------+---------+ + + + documented as of this encounter Visit Diagnoses Not on filedocumented in this encounter"
--- OUTSIDE RECORDS SUMMARY | ~2019-10-23 | XMS | Encounter Summary ---
Demographics + + + | Address | [address] | | | [place] [address] | + + + | Home Phone [...] [place] | | | | | [address] | | + + + + + Care Team Providers + +------+ + | Care Drain Technician Name | Role | Phone | + +------+ + | Basim Bolanos MD | PCP | | + +------+ + Encounter Details +--------+ + + + + | Date | Type | Department | Care Team | Description | +--------+ + + + + | 03/30/ | Hospital | [facility] | Tyrese Neely MD | | | 2012 | Encounter | MED CTR MP INTRA OP | [address], [place] | | | | | [address] | [address] [place], [place] | | | | | [place], [place] | [address] | | | | | [address] | | | | | | [phone] | | | +--------+ + + + [...] + + + +---------+ + + | [place]-3 Fatty | Take 1,000 mg by [...] [place] | | | | | | [address] | | | | | | | [...] + | [facility] | [address] | [place] | [phone] | | [facility] | | [address] | | | - LABORATORY | | | | + + + + + | [facility] | [address] | [place] | | | [facility] | | [address] | | | - LABORATORY | | [...] + | [facility] | [address] | [place], [place] | [phone] | | [facility] | | [address] | | | - LABORATORY | | | | + + + + + | [facility] | [address] | [place], [place] | | | [facility] | | [address] | | | - LABORATORY | | | | + + + + + documented in this encounter Visit Diagnoses Not on filedocumented in this encounter"
--- OUTSIDE RECORDS SUMMARY | ~2019-10-23 | XMS | Encounter Summary ---
Demographics + + + | Address | [address] | | | [place] [address] | + + + | Home Phone [...] [place], [place] | | | | | [address] | | + + + + + Care Team Providers + +------+ + | Care Corrugated Box Machine Operator Name | Role | Phone | + +------+ + PCP | Unavailable | + +------+ + Encounter Details +--------+ + + + + | Date | Type | Department | Care Team | Description | +--------+ + + + + | 02/02/ | Hospital | [facility] | Serafin Bautista | | | 2012 | Encounter | MED CTR XRAY [address] | T, MD [address] | | | | | [place] | ST [place], [place] | | | | | [place] [address] | [address] | | | | | [phone] | | | +--------+ + + + [...] [place] | | | | | | [address] | | | | | | | [...] Performed At | + + + | [facility] Department | [facility] | | [address] | [facility] | | PROCEDURE: EPIDURAL STEROID | DIAG [...] Transcribed Date/Time: | | | 02/03/2012 18:45 Inside Sales Person: <Electronically Signed | | | by Serafin Bautista MD> 02/14/12 0916 | | + + + + + | Procedure Note | + + | Juan, Rad Conversion - 11/30/2013 5:06 PM [facility] | | Diagnostic Imaging Department | [...] | Transcribed Date/Time: 02/03/2012 18:45 | | Inside Sales Person: LaMAHIN | | <Electronically Signed by Serafin [...]
--- OUTSIDE RECORDS SUMMARY | ~2019-10-23 | XMS | Encounter Summary ---
Demographics + + + | Address | [address] | | | [place] [address] | + + + | Home Phone [...] [place] | | | | | [address] | | + + + + + Care Team Providers + +------+ + | Care Government Relations Director Name | Role | Phone | + +------+ + | Natalee Andersen NP | PCP | | + +------+ + Encounter Details +--------+ + + + + | Date | Type | Department | Care Team | Description | +--------+ + + + + | 09/27/ | Hospital | [facility] | Frandy Teresa, | Lumbar spondylosis; | | 2013 | Encounter | MED CTR XRAY [address] | DO [address] | S/P lumbar fusion | | | | [place] | [place] [place], [place] | | | | | [place] [address] | [address] | | | | | [phone] | | | +--------+ + + + [...] + + + +---------+ + + | [place]-3 Fatty | Take 1,000 mg by | [...] [place] | | | | | | [address] | | | | | | | [...] + | MISCELLANEOUS LAB | | | [phone] | + +---------+ + + | MISCELANIOUS LAB | | | [phone] | + +---------+ + + documented in this encounter Visit Diagnoses + + | Diagnosis | + + | Lumbar spondylosis Lumbosacral spondylosis without myelopathy | + + | S/P lumbar fusion Arthrodesis status | + + documented in this encounter"
--- OUTSIDE RECORDS SUMMARY | ~2019-10-23 | XMS | Encounter Summary ---
Demographics + + + | Address | [address] | | | [place] [address] | + + + | Home Phone [...] [place] | | | | | [address] | | + + + + + Care Team Providers + +------+ + | Care Camp Dishwasher Name | Role | Phone | + [...] + + | 08/16/ | Telephone | [facility] | Ashley Chávez | Other (Called to | | 2018 | | CARDIOLOGY [place] | Pollo, Gas Or Petroleum Operator | tell patient what | | | | [address] | | Nicholas said. ) | | | | [address] | | | | | | [place] | | | | | | [address] | | | | | | [phone] | | | +--------+ + + + [...] [place] | | | | | | [address] | | | | | | | | +--------+---------+ + + + documented as of this encounter Visit Diagnoses Not on filedocumented in this encounter"
--- OUTSIDE RECORDS SUMMARY | ~2019-10-23 | XMS | Encounter Summary ---
Demographics + + + | Address | [address] | | | [place] [address] | + + + | Home Phone [...] [place] | | | | | [address] | | + + + + + Care Team Providers + +------+ + | Care Director Of Business Applications Name | Role | Phone | + [...] | | | | | [address] | [place], [place] | | | | | [place], [place] | [address] | | | | | [address] | | | | | | [phone] | | | +--------+ + + + [...] [place] | | | | | | [address] | | | | | | | | +--------+---------+ + + + documented as of this encounter Visit Diagnoses Not on filedocumented in this encounter"
--- OUTSIDE RECORDS SUMMARY | ~2019-10-23 | XMS | Encounter Summary ---
Demographics + + + | Address | [address] | | | [place] [address] | + + + | Home Phone [...] [place] | | | | | [address] | | + + + + + Care Team Providers + +------+ + | Care Facilities Maintenance Assistant Name | Role | Phone | [...] + + | 08/16/ | Documentati | [facility] | Katharine Moncada, | Other (urgent | | 2019 | on | CARDIOLOGY [place] | Technologist | report) | | | | [address] | | | | | | [place] | | | | | | [address] | | | | | | [phone] | | | +--------+ + + + [...] [place] | | | | | | [address] | | | | | | | | +--------+---------+ + + + documented as of this encounter Visit Diagnoses Not on filedocumented in this encounter"
--- OUTSIDE RECORDS SUMMARY | ~2019-10-23 | XMS | Encounter Summary ---
Demographics + + + | Address | [address] | | | [place] [address] | + + + | Home Phone [...] [place] | | | | | [address] | | + + + + + Care Team Providers + +------+ + | Care Coating Mixer Name | Role | Phone | [...] + + | 09/10/ | Documentati | [facility] | Katharine Moncada, | Other (urgent | | 2019 | on | CARDIOLOGY [place] | Technologist | report) | | | | [address] | | | | | | [place] | | | | | | [address] | | | | | | [phone] | | | +--------+ + + + [...] [place] | | | | | | [address] | | | | | | | | +--------+---------+ + + + documented as of this encounter Visit Diagnoses Not on filedocumented in this encounter"
--- OUTSIDE RECORDS SUMMARY | ~2019-10-23 | XMS | Encounter Summary ---
Demographics + + + | Address | [address] | | | [place] [address] | + + + | Home Phone [...] [place] | | | | | [address] | | + + + + + Care Team Providers + +------+ + | Care Rip And Groove Machine Operator Name | Role | Phone [...] + + | 03/03/ | Telephone | [facility] | Baudilio Newman | Other (Results) | | 2014 | | NEUROLOGY LAURIE | MD Pollo Need updated | | | | | [address], | address | | | | | [address] [place] | | | | | | [place] [address] | | | | | | [phone] | | | +--------+ + + + [...] [place] | | | | | | [address] | | | | | | | | +--------+---------+ + + + documented as of this encounter Visit Diagnoses Not on filedocumented in this encounter"
--- OUTSIDE RECORDS SUMMARY | ~2019-10-23 | XMS | Encounter Summary ---
Demographics + + + | Address | [address] | | | [place] [address] | + + + | Home Phone [...] [place], [place] | | | | | [address] | | + + + + + Care Team Providers + +------+ + | Care Tipple Tender Name | Role | Phone | + +------+ + PCP | Unavailable | + +------+ + Encounter Details +--------+ + + + + | Date | Type | Department | Care Team | Description | +--------+ + + + + | 12/27/ | Hospital | [facility] | | | | 1997 | Encounter | MED CTR EMERGENCY | | | | | | [address] | | | | | | [place] | | | | | | [address] | | | | | | [phone] | | | +--------+ + + + [...] | | | | | [place] | | | | | | [id number] | | | | | | | | +--------+---------+ + + + documented as of this encounter Visit Diagnoses Not on filedocumented in this encounter"
--- OUTSIDE RECORDS SUMMARY | ~2019-10-23 | XMS | Encounter Summary ---
Demographics + + + | Address | [address] | | | [place] [address] | + + + | Home Phone [...] [place], [place] | | | | | [address] | | + + + + + Care Team Providers + +------+ + | Care Resort Host Name | Role | Phone | + +------+ + PCP | Unavailable | + +------+ + Encounter Details +--------+ + + + + | Date | Type | Department | Care Team | Description | +--------+ + + + + | 06/30/ | Hospital | [facility] | | | | 2000 | Encounter | MED CTR EMERGENCY | | | | | | [address] | | | | | | [place] | | | | | | [address] | | | | | | [phone] | | | +--------+ + + + [...] [address] | | | | | | [facility] [place] | | | | | | [address] | | | | | | | | +--------+---------+ + + + documented as of this encounter Visit Diagnoses Not on filedocumented in this encounter"
--- OUTSIDE RECORDS SUMMARY | ~2019-10-23 | XMS | Encounter Summary ---
Demographics + + + | Address | [address] | | | [place] [address] | + + + | Home Phone [...] [place] | | | | | [address] | | + + + + + Care Team Providers + +------+ + | Care Pie Dough Roller Name | Role | Phone | [...] + + | 07/06/ | Emergency | [facility] | Yunior [place], | Chest pain, | | 2014 | | MED CTR EMERGENCY | MD [address] | unspecified chest | | | | CENTER [address] | [place], [place] | pain type (Primary | | | | [place], [place] | [address] | Dx) | | | | [address] | | | | | | [phone] | | | +--------+ + + + [...] sent through Care Everywhere.CHEST PAIN, NON CARDIAC (GREENLANDIC)documented in this encounter Medications at Time of [...] 0 | | | | (VITAMIN D-3) [address] | mouth Once a week. | | [...] + + + +---------+ + + | [place]-3 Fatty | Take 1,000 mg by | [...] 2020 | Visit | | [address] | | | | | | [place] | | | | | | [address] | | | | | | | [...] [address] | [place] | [phone] | | [facility] | | [address] | | | - LABORATORY | | [...] [address] | [place] | [phone] | | [facility] | | [address] | | | - LABORATORY | | [...] | | | | | | [employer] | | | | | [...] + + | Performing | Address | City/State/[facility] [[email or web address] | Phone Number | | Organization | | | | + + + + + | [facility] | [address] | [place] | [phone] | | [facility] | | [address] | | | - LABORATORY | | [...] mL/min/1.73m2 | [facility] | | | [place] | RATE,ESTIMATED | | MEDICAL | | | | mL/min/1.32q7Wrwa than | | CENTER - | | [...] [address] | [place] | [phone] | | [facility] | | [address] | | | - LABORATORY | | [...] [address] | [place] | [phone] | | [facility] | | [address] | | | - LABORATORY | | [...] | | | | MD NAZARIO JON ([id number]) | | | | | | on [...]
--- OUTSIDE RECORDS SUMMARY | ~2019-10-23 | XMS | Encounter Summary ---
Demographics + + + | Address | [address] | | | [place] [address] | + + + | Home Phone [...] [place] | | | | | [address] | | + + + + + Care Team Providers + +------+ + | Care Crew Leader Name | Role | Phone [...] + | 07/29/ | Telephone | [facility] | Frandy Teresa, | Other (multiple | | 2013 | | NEUROSURGERY [address] | DO [address] | questions) | | | | [address] | [address] [place], [place] | | | | | [place], [place] | [address] | | | | | [address] | | | | | | [phone] | | | +--------+ + + + [...] | | | | | [place] | | | | | | [address] | | | | | | | | +--------+---------+ + + + documented as of this encounter Visit Diagnoses Not on filedocumented in this encounter"
--- OUTSIDE RECORDS SUMMARY | ~2019-10-23 | XMS | Encounter Summary ---
Demographics + + + | Address | [address] | | | [place] [address] | + + + | Home Phone [...] [place] | | | | | [address] | | + + + + + Care Team Providers + +------+ + | Care Rose Grading Supervisor Name | Role | Phone | [...] + + | 09/10/ | Documentati | [facility] | Katharine Moncada, | Other (urgent | | 2019 | on | CARDIOLOGY [place] | Technologist | report) | | | | [address] | | | | | | [place] | | | | | | [address] | | | | | | [phone] | | | +--------+ + + + [...] [place] | | | | | | [address] | | | | | | | | +--------+---------+ + + + documented as of this encounter Visit Diagnoses Not on filedocumented in this encounter"
--- OUTSIDE RECORDS SUMMARY | ~2019-10-23 | XMS | Encounter Summary ---
Demographics + + + | Address | [address] | | | [place] [address] | + + + | Home Phone [...] [place] | | | | | [address] | | + + + + + Care Team Providers + +------+ + | Care Databases Computer Consultant Name | Role | Phone | [...] | | | | | [address] | [place], [place] | | | | | [place], [place] | [address] | | | | | [address] | | | | | | [phone] | | | +--------+ + + + [...] [place] | | | | | | [address] | | | | | | | | +--------+---------+ + + + documented as of this encounter Visit Diagnoses Not on filedocumented in this encounter"
--- OUTSIDE RECORDS SUMMARY | ~2019-10-23 | XMS | Encounter Summary ---
Demographics + + + | Address | [address] | | | [place] [address] | + + + | Home Phone [...] [place], [place] | | | | | [address] | | + + + + + Care Team Providers + +------+ + | Care Note Keeper Name | Role | Phone | + +------+ + PCP | Unavailable | + +------+ + Encounter Details +--------+ + + + + | Date | Type | Department | Care Team | Description | +--------+ + + + + | 02/28/ | Hospital | [facility] | Deon Gonzales | | | 2011 | Encounter | MED CTR SLEEP | MD [address] | | | | | [place] [address] | [place] | | | | | [place], [place] | [place] [address] | | | | | [address] | [phone] | | | | | [phone] | | | +--------+ + + + [...] [place] | | | | | | [address] | | | | | | | | +--------+---------+ + + + documented as of this encounter Visit Diagnoses Not on filedocumented in this encounter"
--- OUTSIDE RECORDS SUMMARY | ~2019-10-23 | XMS | Encounter Summary ---
Demographics + + + | Address | [address] | | | [place] [address] | + + + | Home Phone [...] [place] | | | | | [address] | | + + + + + Care Team Providers + +------+ + | Care Bone Density Technician Name | Role | Phone | + +------+ + | Natalee Andersen NP | PCP | | + +------+ + Encounter Details +--------+ + + + + | Date | Type | Department | Care Team | Description | +--------+ + + + + | 06/25/ | Hospital | [facility] | Frandy Teresa, | Diabetes mellitus | | 2014 | Encounter | MED CTR OR INTRA OP | DO [address] | (HCC) (Primary Dx) | | | | [address] | [address] [place], [place] | | | | | [place], [place] | [address] | | | | | [address] | | | | | | [phone] | | | +--------+ + + + [...] + + + +---------+ + + | [place]-3 Fatty | Take 1,000 mg by | [...] [place] | | | | | | [id number] | | | | | | | [...] mL/min/1.73m2 | [facility] | | | [place] | RATE,ESTIMATED | | MEDICAL | | | | mL/min/1.98j0Ruzd than | | CENTER - | | [...] + | [facility] | [address] | [place], [place] | [phone] | | [facility] | | [address] | | | - LABORATORY | | | | + + + + + | [facility] | [address] | [place], [place] | | | [facility] | | [address] | | | - LABORATORY | | [...] + | [facility] | [address] | [place] | [phone] | | [facility] | | [address] | | | - LABORATORY | | | | + + + + + | [facility] | [address] | [place], [place] | | | [facility] | | [address] | | | - LABORATORY | | [address] | [place] | [phone] | | [facility] | | [address] | | | - LABORATORY | | | | + + + + + | [facility] | [address] | [place] | | | [facility] | | [address] | | | - LABORATORY | | [...] | | | [facility] | | [address] | | | - BLOOD BANK | [...] + | [facility] | [address] | [place] | [phone] | | [facility] | | [address] | | | - LABORATORY | | | | + + + + + | [facility] | [address] | [place], [place] | | | [facility] | | [address] | | | - LABORATORY | | [...]
--- OUTSIDE RECORDS SUMMARY | ~2019-10-23 | XMS | Encounter Summary ---
Demographics + + + | Address | [address] | | | [place] [address] | + + + | Home Phone [...] [place] | | | | | [address] | | + + + + + Care Team Providers + +------+ + | Care Dry Cans Operator Name | Role | Phone | [...] [address] | [address] [place], [place] | | | | | [place], [place] | [id number] | | | | | [address] | | | | | | [phone] | | | +--------+ + + + [...] | | | | | [place] | | | | | | [address] | | | | | | | | +--------+---------+ + + + documented as of this encounter Visit Diagnoses Not on filedocumented in this encounter"
--- OUTSIDE RECORDS SUMMARY | ~2019-10-23 | XMS | Encounter Summary ---
Demographics + + + | Address | [address] | | | [place] [address] | + + + | Home Phone [...] [place], [place] | | | | | [address] | | + + + + + Care Team Providers + +------+ + | Care Dry Cans Back Tender Name | Role | Phone | + +------+ + PCP | Unavailable | + +------+ + Encounter Details +--------+ + + + + | Date | Type | Department | Care Team | Description | +--------+ + + + + | 07/23/ | Hospital | [facility] | | | | 1992 - | Encounter | MED CTR GENERIC PSY | | | | | | CONV DEPT [address] | | | | 07/28/ | | [place], | | | | 1992 | | [place] [address] | | | | | | [phone] | | | +--------+ + + + [...] [place] | | | | | | [address] | | | | | | | | +--------+---------+ + + + documented as of this encounter Visit Diagnoses Not on filedocumented in this encounter"
--- OUTSIDE RECORDS SUMMARY | ~2019-10-23 | XMS | Encounter Summary ---
Demographics + + + | Address | [address] | | | [place] [address] | + + + | Home Phone [...] [place] | | | | | [address] | | + + + + + Care Team Providers + +------+ + | Care Pebble Mill Operator Name | Role | Phone [...] [address] | [address] [place], [place] | | | | | [place], [place] | [id number] | | | | | [address] | | | | | | [phone] | | | +--------+ + + + [...] | | | | | [place] | | | | | | [address] | | | | | | | | +--------+---------+ + + + documented as of this encounter Visit Diagnoses Not on filedocumented in this encounter"
--- OUTSIDE RECORDS SUMMARY | ~2019-10-23 | XMS | Encounter Summary ---
Demographics + + + | Address | [address] | | | [place] [address] | + + + | Home Phone [...] [place] | | | | | [address] | | + + + + + Care Team Providers + +------+ + | Care Seam Closer Name | Role | Phone | [...] | | | | | Procedures | BUSINESS CONTROLLER [address] | [address] | | | | | DE OFFICE | | [address] | | | | | CONSULTATION | [address] | [place] LEONARD | | | | | NEW/ESTAB | [facility], | [address] Phone: | | | | | PATIENT 60 | [place] [address] | [phone] | | | | | MIN | Phone: | Fax: | | | | | | [phone] | [phone] | | | | | | Fax: | | | | | | | [phone] | | +--------+--------+ + + + + Encounter Details +--------+---------+ + + + | Date | Type | Department | Care Team | Description | +--------+---------+ + + + | 05/02/ | Office | [facility] | Frandy Teresa, | Spondylolisthesis of | | 2013 | Visit | NEUROSURGERY [address] | DO [address] | lumbar region | | | | [address] | [address] [place], [place] | (Primary Dx); Lumbar | | | | [place], [place] | [id number] | stenosis; Lumbar | | | | [address] | | radicular pain; | | | | [phone] | | Lumbago | +--------+---------+ + + [...] Frandy Teresa DO [address] [facility] [place] [address] FAX: NEUROSURGERY HISTORY AND PHYSICAL EXAMINATION CHIEF [...] Take 15 mg by mouth nightl y. [place]-3 Fatty Acids (FISH OIL CONCENTRATE) 1000 MG [...] Intrinsics 5 5 Ulnar Intrinsics 5 5 Application Packaging Specialist Strength 5 5 Hip Flexion 5 [...] | | | | | [place] | | | | | | [address] | | | | | | | [...]
--- OUTSIDE RECORDS SUMMARY | ~2019-10-23 | XMS | Encounter Summary ---
Demographics + + + | Address | [address] | | | [place] [address] | + + + | Home Phone [...] [place], [place] | | | | | [address] | | + + + + + Care Team Providers + +------+ + | Care Rest Room Attendant Name | Role | Phone | + +------+ + PCP | Unavailable | + +------+ + Encounter Details +--------+ + + + + | Date | Type | Department | Care Team | Description | +--------+ + + + + | 12/22/ | Hospital | [facility] | | | | 1993 - | Encounter | MED CTR GENERIC PSY | | | | | | CONV DEPT [address] | | | | 12/25/ | | [address], | | | | 1993 | | [place] [address] | | | | | | [phone] | | | +--------+ + + + [...] [place] | | | | | | [address] | | | | | | | | +--------+---------+ + + + documented as of this encounter Visit Diagnoses Not on filedocumented in this encounter"
--- OUTSIDE RECORDS SUMMARY | ~2019-10-23 | XMS | Encounter Summary ---
Demographics + + + | Address | [address] | | | [place] [address] | + + + | Home Phone [...] [place] | | | | | [address] | | + + + + + Care Team Providers + +------+ + | Care Repairer Sash And Door Name | Role | Phone | + [...] + | 07/19/ | Telephone | [facility] | Frandy Teresa, | Appointment | | 2013 | | NEUROSURGERY [address] | DO [address] | | | | | [address] | [address] [place], [place] | | | | | [place], [place] | [address] | | | | | [address] | | | | | | [phone] | | | +--------+ + + + [...] [place] | | | | | | [address] | | | | | | | | +--------+---------+ + + + documented as of this encounter Visit Diagnoses Not on filedocumented in this encounter"
--- OUTSIDE RECORDS SUMMARY | ~2019-10-23 | XMS | Encounter Summary ---
Demographics + + + | Address | [address] | | | [place] [address] | + + + | Home Phone [...] [place] | | | | | [address] | | + + + + + Care Team Providers + +------+ + | Care Obstetrician Name | Role | Phone | + [...] [address] | | | | | [place], [place] | Shaheen Simons | | | | | [address] | [place] [address] | | | | | [phone] | [phone] | | | | | | | [...] [place] | | | | | | [address] | | | | | | | [...] GIVEN Testing | | | performed at [facility];[address] [place] [address] CULTURE | | | 50,000 TO 100,000 CFU/ML | | | MIXED GRAM POSITIVE HAIDER NO SUSCEPTIBILITY TO FOLLOW | | | MULTIPLE ORGANISM TYPES PRESENT, | | | SUGGESTIVE OF CONTAMINATION OR COLONIZATION. SUGGEST RECOLLECTION FOR | | | CULTURE. Testing | | | performed at [facility];[address] [place] [address];[place] [address] REPORT | | | STATUS 06/08/2012 FINAL [...]
--- OUTSIDE RECORDS SUMMARY | ~2019-10-23 | XMS | Encounter Summary ---
Demographics + + + | Address | [address] | | | [place] [address] | + + + | Home Phone [...] [place], [place] | | | | | [address] | | + + + + + Care Team Providers + +------+ + | Care Electric Meter Repairer Apprentice Name | Role | Phone | [...] Location | | | | | | [phone] | | | +--------+ + + + [...] [place] | | | | | | [address] | | | | | | | | +--------+---------+ + + + documented as of this encounter Visit Diagnoses Not on filedocumented in this encounter"
--- OUTSIDE RECORDS SUMMARY | ~2019-10-23 | XMS | Encounter Summary ---
Demographics + + + | Address | [address] | | | [place] [address] | + + + | Home Phone [...] [place] | | | | | [address] | | + + + + + Care Team Providers + +------+ + | Care Cardiology Consultants Name | Role | Phone | + [...] [place] | | | | | | [address] | | | | | | [phone] | | | +--------+ + + + [...] 2020 | Visit | | [address] | | | | | | [place] | | | | | | [address] | | | | | | | | +--------+---------+ + + + documented as of this encounter Visit Diagnoses Not on filedocumented in this encounter"
--- OUTSIDE RECORDS SUMMARY | ~2019-10-23 | XMS | Encounter Summary ---
Demographics + + + | Address | [address] | | | [place] [address] | + + + | Home Phone [...] [place] | | | | | [address] | | + + + + + Care Team Providers + +------+ + | Care Resident Physician Name | Role | Phone | [...] + | 02/27/ | Telephone | [facility] | Katharine Cardona PA-C | Appointment (New | | 2014 | | MEDICINE [address] | [address] | Patient) | | | | [address] | [place] [address] | | | | | [place] [address] | [phone] | | | | | [phone] | | | +--------+ + + + [...] [place] | | | | | | [address] | | | | | | | | +--------+---------+ + + + documented as of this encounter Visit Diagnoses Not on filedocumented in this encounter"
--- OUTSIDE RECORDS SUMMARY | ~2019-10-23 | XMS | Encounter Summary ---
Demographics + + + | Address | [address] | | | [place] [address] | + + + | Home Phone [...] [place], [place] | | | | | [address] | | + + + + + Care Team Providers + +------+ + | Care Arc Cutter Name | Role | Phone | + +------+ + PCP | Unavailable | + +------+ + Encounter Details +--------+ + + + + | Date | Type | Department | Care Team | Description | +--------+ + + + + | 12/27/ | Hospital | [facility] | | | | 1995 | Encounter | MED CTR LABORATORY | | | | | | [address] | | | | | | [place] | | | | | | [address] | | | | | | [phone] | | | +--------+ + + + [...] | | | | | [place] | | | | | | [address] | | | | | | | | +--------+---------+ + + + documented as of this encounter Visit Diagnoses Not on filedocumented in this encounter"
--- OUTSIDE RECORDS SUMMARY | ~2019-10-23 | XMS | Encounter Summary ---
Demographics + + + | Address | [address] | | | [place] [address] | + + + | Home Phone [...] [place] | | | | | [address] | | + + + + + Care Team Providers + +------+ + | Care Conveyor Belt Operator Name | Role | Phone | [...] + | 09/26/ | Refill | [facility] | Frandy Teresa, | Medication Refill | | 2013 | | NEUROSURGERY [address] | DO [address] | | | | | [address] | [address] [place], [place] | | | | | [place], [place] | [id number] | | | | | [address] | | | | | | [phone] | | | +--------+--------+ + + + [...] | | | | | [place] | | | | | | [address] | | | | | | | | +--------+---------+ + + + documented as of this encounter Visit Diagnoses Not on filedocumented in this encounter"
--- OUTSIDE RECORDS SUMMARY | ~2019-10-23 | XMS | Encounter Summary ---
Demographics + + + | Address | [address] | | | [place] [address] | + + + | Home Phone [...] [place], [place] | | | | | [address] | | + + + + + Care Team Providers + +------+ + | Care Show Jumping Instructor Name | Role | Phone | + +------+ + PCP | Unavailable | + +------+ + Encounter Details +--------+ + + + + | Date | Type | Department | Care Team | Description | +--------+ + + + + | 06/19/ | Hospital | [facility] | | | | 1991 - | Encounter | MED CTR GENERIC PSY | | | | | | CONV DEPT [address] | | | | 06/24/ | | [address] [address], | | | | 1991 | | [place] [address] | | | | | | [phone] | | | +--------+ + + + [...] [place] | | | | | | [address] | | | | | | | | +--------+---------+ + + + documented as of this encounter Visit Diagnoses Not on filedocumented in this encounter"
--- OUTSIDE RECORDS SUMMARY | ~2019-10-23 | XMS | Encounter Summary ---
Demographics + + + | Address | [address] | | | [place] [address] | + + + | Home Phone [...] [place] | | | | | [address] | | + + + + + Care Team Providers + +------+ + | Care Plastic Card Grader Cardroom Name | Role | Phone | + [...] + + | 09/10/ | Documentati | [facility] | Katharine Moncada, | Other (urgent | | 2019 | on | CARDIOLOGY [place] | Technologist | report) | | | | [address] | | | | | | [place] | | | | | | [address] | | | | | | [phone] | | | +--------+ + + + [...] [place] | | | | | | [address] | | | | | | | | +--------+---------+ + + + documented as of this encounter Visit Diagnoses Not on filedocumented in this encounter"
--- OUTSIDE RECORDS SUMMARY | ~2019-10-23 | XMS | Encounter Summary ---
Demographics + + + | Address | [address] | | | [place] [address] | + + + | Home Phone [...] [place] | | | | | [address] | | + + + + + Care Team Providers + +------+ + | Care Bobbin Coil Winder Name | Role | Phone | [...] + + | 07/19/ | Office | [facility] | Desiree Peterson DO | Syncope, unspecified | | 2019 | Visit | CARDIOLOGY [place] | [address] | syncope type | | | | [address] | [place], [place] | (Primary Dx); | | | | [address] [place] [address] | [address] | Essential | | | | [place] | | hypertension; | | | | [address] | | Irregular heartbeat | | | | [phone] | | | +--------+---------+ + + + [...] Peterson DO - 07/19/2019 10:40 AM PDT [facility] Cardiology Cardiology Follow Up Note Reason [...] by mouth daily. Blood Glucose Monitoring Suppl ([employer] VERIO FLEX SYSTEM) w/Device KIT by Does not ap ply route. budesonide-formoterol (SYMBICORT) 160-4.5 MCG/ACT inhaler Inhale 2 puffs into the lungs 2 (two) times daily. Calcium Carbonate Antacid 1000 MG tablet Take 1,000 mg by mouth 3 (three) times daily. Cholecalciferol (VITAMIN D3) 80393 units CAPS Take by mouth once a [...] [place] | | | | | | [address] | | | | | | | [...]
--- OUTSIDE RECORDS SUMMARY | ~2019-10-23 | XMS | Encounter Summary ---
Demographics + + + | Address | [address] | | | [place] [address] | + + + | Home Phone [...] [place] | | | | | [address] | | + + + + + Care Team Providers + +------+ + | Care Teachers Aide Name | Role | Phone | [...] | | | spondylolist | | [address] | | | | | hesis | | [place], | | | | | Spinal | | [place] [address] | | | | | stenosis, | | Phone: | | | | | lumbar | | [phone] | | | | | region, | | Fax: | | | | | without | | [phone] | | | | | neurogenic | [...] | 07/02/ | Hospital | [facility] | Frandy Teresa, | Degenerative disc | | 2013 - | Encounter | MED CTR SURGICAL | DO [address] | disease, lumbar | | | | [address] | [place] [address] [place] | (Primary Dx); | | 07/05/ | | [place] [address] | [phone] | Diabetes mellitus | | 2013 | | [phone] | | ([facility]); Disturbance | | | | | | [...] Stable for discharge to SNF. DISPOSITION: SNF ([facility]) DISCHARGE MEDICATIONS Medications prior [...] Take 15 mg by mouth nightl y. [place]-3 Fatty Acids (FISH OIL CONCENTRATE) 1000 [...] prophylaxis -DC plan: SNF versus home with [facility] any time. Maria T Storm RN - 07/04/2014 6:56 PM PDTFoley cath dc'd and MARI drain dc'd no problems. Chris Lynn PA-C - 07/04/2014 7:43 AM PDT [facility] PROGRESS NOTE Pt. Name/Age/: Cindy Arndt 58 y.o. 1955 Med. Record Number: [id number] Date of admission: 07/02/2014 Subjective: The patient [...] mari drain and riley cath today. 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 Patient Active Problem List Diagnosis LUMBAR DISC [...] signed by: Chris Nicole, 07/04/2014 7:45 [facility] Chris Lynn PA-C - 07/03/2014 7:13 AM PDT . [facility] PROGRESS NOTE Pt. Name/Age/: Cindy Arndt 58 y.o. 1955 Med. Record Number: [id number] Date of admission: 07/02/2014 Subjective: The patient [...] Electronically signed by: Chris Nicole, 07/03/2014 7:[address] [facility] [facility] Ton Menjivar, KRIS - 07/03/2014 [...] [place] | | | | | | [address] | | | | | | | [...] + | [facility] | [address] | [place], [place] | [phone] | | [facility] | | [address] | | | - LABORATORY | | | | + + + + + | [facility] | [address] | [place], [place] | | | [facility] | | [address] | | | - LABORATORY | | [...] + | [facility] | [address] | [place] | [phone] | | [facility] | | [address] | | | - LABORATORY | | | | + + + + + | [facility] | [address] | [place] | | | [facility] | | [address] | | | - LABORATORY | | [...] + | [facility] | [address] | [place] | [phone] | | [facility] | | [address] | | | - LABORATORY | | | | + + + + + | [facility] | [address] | [place] | | | [facility] | | [address] | | | - LABORATORY | | [...] + | [facility] | [address] | [place], [place] | [phone] | | [facility] | | [address] | | | - LABORATORY | | | | + + + + + | [facility] | [address] | [place], [place] | | | [facility] | | [address] | | | - LABORATORY | | [...] + | [facility] | [address] | [place] | [phone] | | [facility] | | [address] | | | - LABORATORY | | | | + + + + + | [facility] | [address] | [place] | | | [facility] | | [address] | | | [...] + | [facility] | [address] | [place] | [phone] | | [facility] | | [address] | | | - LABORATORY | | | | + + + + + | [facility] | [address] | [place] | | | [facility] | | [address] | | | - LABORATORY | | [...] [address] | [place] | [phone] | | [facility] | | [address] | | | - LABORATORY | | | | + + + + + | [facility] | [address] | [place] | | | [facility] | | [address] | | | - LABORATORY | | [...] + | [facility] | [address] | [place], [place] | [phone] | | [facility] | | [address] | | | - LABORATORY | | | | + + + + + | [facility] | [address] | [place], [place] | | | [facility] | | [address] | | | - LABORATORY | | [...] [address] | [place] | [phone] | | [facility] | | [address] | | | - LABORATORY | | | | + + + + + | [facility] | [address] | [place], [place] | | | [facility] | | [address] | | | - LABORATORY | | [...] | of hardware for posterior fusion from D5pcdqpvt S1 with interbody hardware at L5-S1. The [...] + + | Performing | Address | City/State[facility] | Phone Number | | Organization | | | | + +---------+ + + | MISCELLANEOUS LAB | | | [phone] | + +---------+ + + | MISCELANIOUS LAB | | | [phone] | + +---------+ + + POC Glucose [...] + | [facility] | [address] | [place], [place] | [phone] | | [facility] | | [address] | | | - LABORATORY | | | | + + + + + | [facility] | [address] | [place], [place] | | | [facility] | | [address] | | | - LABORATORY | | [...] + | [facility] | [address] | [place] | [phone] | | [facility] | | [address] | | | - LABORATORY | | | | + + + + + | [facility] | [address] | [place] | | | [facility] | | [address] | | | - LABORATORY | | [...] | | | POC | | | [facility] | | | | | [...] + | [facility] | [address] | [place] | [phone] | | [facility] | | [address] | | | - LABORATORY | | | | + + + + + | [facility] | [address] | [place] | | | [facility] | | [address] | | | - LABORATORY | | [...] + | [facility] | [address] | [place], [place] | [phone] | | [facility] | | [address] | | | - LABORATORY | | | | + + + + + | [facility] | [address] | [place] | | | [facility] | | [address] | | | - LABORATORY | | [...] + | [facility] | [address] | [place] | [phone] | | [facility] | | [address] | | | - LABORATORY | | | | + + + + + | [facility] | [address] | [place] | | | [facility] | | [address] | | | - LABORATORY | | [...] [facility] | | [address] | | | - BLOOD BANK | [...] + +---------+ +---+---+---+ | morphine 5 mg/mL STRIPER SPRAY GUN syringe | New Bag | 07/02/20 | [...] | | | | Dose(mg): 0, Starting STRIPER SPRAY GUN | | | | | | | Dose(mg): 1, Incremental Increase | | | | | | | STRIPER SPRAY GUN Dose(mg): 0.5, Maximum STRIPER SPRAY GUN | | | | | | | [...]
--- OUTSIDE RECORDS SUMMARY | ~2019-10-23 | XMS | Encounter Summary ---
Demographics + + + | Address | [address] | | | [place] [address] | + + + | Home Phone [...] [place] | | | | | [address] | | + + + + + Care Team Providers + +------+ + | Care Ski Technician Name | Role | Phone | [...] + + | 08/15/ | Documentati | [facility] | Katharine Moncada, | Other (urgent | | 2019 | on | CARDIOLOGY [place] | Technologist | report) | | | | [address] | | | | | | [place] | | | | | | [address] | | | | | | [phone] | | | +--------+ + + + [...] [place] | | | | | | [address] | | | | | | | | +--------+---------+ + + + documented as of this encounter Visit Diagnoses Not on filedocumented in this encounter"
--- OUTSIDE RECORDS SUMMARY | ~2019-10-23 | XMS | Encounter Summary ---
Demographics + + + | Address | [address] | | | [place] [address] | + + + | Home Phone [...] [place] | | | | | [address] | | + + + + + Care Team Providers + +------+ + | Care Booky Name | Role | Phone | + [...] type | | | | [address] | [place], [place] | | | | | [place] [address] | [address] | | | | | [place] | | | | | | [address] | Dora De La Torre | | | | | [phone] | CAROLINE Mendez [address] | | | | | [address] | | | | | | [place] [address] | | | | | | [phone] | | | | | | | [...] [place] | | | | | | [address] | | | | | | | | +--------+---------+ + + + documented as of this encounter Visit Diagnoses + + | Diagnosis | + + | Syncope, unspecified syncope type | + + documented in this encounter"
--- OUTSIDE RECORDS SUMMARY | ~2019-10-23 | XMS | Encounter Summary ---
Demographics + + + | Address | [address] | | | [place] [address] | + + + | Home Phone [...] [place] | | | | | [address] | | + + + + + Care Team Providers + +------+ + | Care Environmental Management Specialist Name | Role | Phone | + +------+ + | Basim Bolanos MD | PCP | | + +------+ + Encounter Details +--------+ + + + + | Date | Type | Department | Care Team | Description | +--------+ + + + + | 03/30/ | Hospital | [facility] | Tyrese Neely MD | | | 2012 | Encounter | MED CTR MP INTRA OP | [address] [place] | | | | | [address] | [address] [place], [place] | | | | | [place], [place] | [address] | | | | | [address] | | | | | | [phone] | | | +--------+ + + + [...] + + + +---------+ + + | [place]-3 Fatty | Take 1,000 mg by | [...] [place] | | | | | | [address] | | | | | | | [...] + | [facility] | [address] | [place] | [phone] | | [facility] | | [address] | | | - LABORATORY | | | | + + + + + | [facility] | [address] | [place] | | | [facility] | | [id number] | | | - LABORATORY | | [...] + | [facility] | [address] | [place], [place] | [phone] | | [facility] | | [id number] | | | - LABORATORY | | | | + + + + + | [facility] | [address] | [place], [place] | | | [facility] | | [id number] | | | - LABORATORY | | | | + + + + + documented in this encounter Visit Diagnoses Not on filedocumented in this encounter"
--- OUTSIDE RECORDS SUMMARY | ~2019-10-23 | XMS | Encounter Summary ---
Demographics + + + | Address | [address] | | | [place] [address] | + + + | Home Phone [...] [place] | | | | | [address] | | + + + + + Care Team Providers + +------+ + | Care Plush Weaver Name | Role | Phone | [...] + | 07/29/ | Telephone | [facility] | Frandy Teresa, | Other (multiple | | 2013 | | NEUROSURGERY [address] | DO [address] | questions) | | | | [address] | [address] [place], [place] | | | | | [place], [place] | [address] | | | | | [address] | | | | | | [phone] | | | +--------+ + + + [...] | | | | | [place] | | | | | | [address] | | | | | | | | +--------+---------+ + + + documented as of this encounter Visit Diagnoses Not on filedocumented in this encounter"
--- OUTSIDE RECORDS SUMMARY | ~2019-10-23 | XMS | Encounter Summary ---
Demographics + + + | Address | [address] | | | [place] [address] | + + + | Home Phone [...] [place] | | | | | [address] | | + + + + + Care Team Providers + +------+ + | Care Home Insurance Agent Name | Role | Phone [...] [address] | [address] [place], [place] | | | | | [place], [place] | [id number] | | | | | [address] | | | | | | [phone] | | | +--------+ + + + [...] | | | | | [place] | | | | | | [address] | | | | | | | | +--------+---------+ + + + documented as of this encounter Visit Diagnoses Not on filedocumented in this encounter"
--- OUTSIDE RECORDS SUMMARY | ~2019-10-23 | XMS | Encounter Summary ---
Demographics + + + | Address | [address] | | | [place] [address] | + + + | Home Phone [...] [place] | | | | | [address] | | + + + + + Care Team Providers + +------+ + | Care Council Member Name | Role | Phone [...] + + | 08/20/ | Documentati | [facility] | Katharine Moncada, | Other (urgent | | 2019 | on | CARDIOLOGY [place] | Technologist | report) | | | | [address] | | | | | | [place] | | | | | | [address] | | | | | | [phone] | | | +--------+ + + + [...] [place] | | | | | | [address] | | | | | | | | +--------+---------+ + + + documented as of this encounter Visit Diagnoses Not on filedocumented in this encounter"
--- OUTSIDE RECORDS SUMMARY | ~2019-10-23 | XMS | Encounter Summary ---
Demographics + + + | Address | [address] | | | [place] [address] | + + + | Home Phone [...] [place] | | | | | [address] | | + + + + + [...] | Abstract | [facility] [place] | [facility], | | | 2012 | | GASTROENTEROLOGY | FORTUNATO Thomas [address] | | | | | [address] | [place], [address] | | | | | [address] [place], [place] | [place], [place] | | | | | [address] | [address] | | | | | [phone] | | | +--------+ + + + [...] [place] | | | | | | [address] | | | | | | | | +--------+---------+ + + + documented as of this encounter Visit Diagnoses Not on filedocumented in this encounter"
--- OUTSIDE RECORDS SUMMARY | ~2019-10-23 | XMS | Encounter Summary ---
Demographics + + + | Address | [address] | | | [place] [address] | + + + | Home Phone [...] [place] | | | | | [address] | | + + + + + Care Team Providers + +------+ + | Care Ice Guard Skating Rink Name | Role | Phone | + [...] + | 02/27/ | Telephone | [facility] | Katharine Cardona PA-C | Appointment (New | | 2014 | | MEDICINE [address] | [address] [place] | Patient) | | | | [address] [place] | [place] [address] | | | | | [place] [address] | [phone] | | | | | [phone] | | | +--------+ + + + [...] [place] | | | | | | [address] | | | | | | | | +--------+---------+ + + + documented as of this encounter Visit Diagnoses Not on filedocumented in this encounter"
--- OUTSIDE RECORDS SUMMARY | ~2019-10-23 | XMS | Encounter Summary ---
Demographics + + + | Address | [address] | | | [place] [address] | + + + | Home Phone [...] [place] | | | | | [address] | | + + + + + Care Team Providers + +------+ + | Care Audio/Video Engineer Name | Role | Phone | [...] [address] | | | | | | [place], [place] | | | | | | [address] | | | +--------+ + + + [...]
--- OUTSIDE RECORDS SUMMARY | ~2019-10-23 | XMS | Encounter Summary ---
Demographics + + + | Address | [address] | | | [place] [address] | + + + | Home Phone [...] [place], [place] | | | | | [address] | | + + + + + Care Team Providers + +------+ + | Care Online Banking Specialist Name | Role | Phone | + +------+ + PCP | Unavailable | + +------+ + Encounter Details +--------+ + + + + | Date | Type | Department | Care Team | Description | +--------+ + + + + | 12/09/ | Hospital | [facility] | Serafin Bautista | | | 2012 | Encounter | MED CTR XRAY [address] | T, MD [address] | | | | | [place] | ST [place], [place] | | | | | [place] [address] | [address] | | | | | [phone] | | | +--------+ + + + [...] [place] | | | | | | [address] | | | | | | | [...] [facility] | [facility] | | [address] | [facility] | | PROCEDURE NOTE EPIDURAL | DIAG [...] Manohar Martinez Conversion - 11/30/2013 4:45 PM [facility] | | Diagnostic Imaging Department | | [address] | | | | | | | [...] [place] | | | | | [facility] | | | | + +---------+ + + documented in this encounter Visit Diagnoses Not on filedocumented in this encounter"
--- OUTSIDE RECORDS SUMMARY | ~2019-10-23 | XMS | Encounter Summary ---
Demographics + + + | Address | [address] | | | [place] [address] | + + + | Home Phone [...] [place] | | | | | [address] | | + + + + + Care Team Providers + +------+ + | Care Freezer Tunnel Operator Name | Role | Phone | [...] [place] | | | | | | [address] | | | | | | [phone] | | | +--------+ + + + [...] [place] | | | | | | [address] | | | | | | | | +--------+---------+ + + + documented as of this encounter Visit Diagnoses Not on filedocumented in this encounter"
--- OUTSIDE RECORDS SUMMARY | ~2019-10-23 | XMS | Encounter Summary ---
Demographics + + + | Address | [address] | | | [place] [address] | + + + | Home Phone [...] [place], [place] | | | | | [address] | | + + + + + Care Team Providers + +------+ + | Care Business Office Representative Name | Role | Phone | + +------+ + PCP | Unavailable | + +------+ + Encounter Details +--------+ + + + + | Date | Type | Department | Care Team | Description | +--------+ + + + + | 01/26/ | Hospital | [facility] | [place], Heath E A, | | | 2012 | Encounter | MED CTR XRAY [address] | MD [address] | | | | | [place] | [place] | | | | | [place] [address] | [address] | | | | | [phone] | | | +--------+ + + + [...] [place] | | | | | | [address] | | | | | | | [...] | [facility] Diagnostic Imaging Department | [facility] | | [address] [facility] | [facility] | | BILATERAL KNEES, THREE VIEWS: [...] Transcribed | | | Date/Time: 01/27/2012 17:18 Diesel Engine Pipe Fitter: | | | <Electronically Signed by Willie Perry MD> 01/27/12 5834 | | + + + + + | Procedure Note | + + | Juan, Rad Conversion - 11/30/2013 5:03 PM [facility] | | Diagnostic Imaging Department [address] [place] [address] | | BILATERAL KNEES, THREE VIEWS: 01/27/2012 [...] 17:12 | |Transcribed Date/Time: 01/27/2012 17:18 | |Diesel Engine Pipe Fitter: | |<Electronically Signed by Willie Perry MD> 01/27/12 103 | + + + +---------+ + + [...]
--- OUTSIDE RECORDS SUMMARY | ~2019-10-23 | XMS | Encounter Summary ---
Demographics + + + | Address | [address] | | | [place] [address] | + + + | Home Phone [...] [place] | | | | | [address] | | + + + + + Care Team Providers + +------+ + | Care Termite Exterminator Name | Role | Phone | + [...] [address] | [address] [place], [place] | fusion | | | | [place] | [address] | | | | | [address] | | | | | | [phone] | | | +--------+ + + + [...] [place] | | | | | | [address] | | | | | | | | +--------+---------+ + + + documented as of this encounter Visit Diagnoses + + | Diagnosis | + + | Lumbago - Primary | + + | S/P lumbar fusion Arthrodesis status | + + documented in this encounter"
--- OUTSIDE RECORDS SUMMARY | ~2019-10-23 | XMS | Encounter Summary ---
Demographics + + + | Address | [address] | | | [place] [address] | + + + | Home Phone [...] | Organization | [facility] | | | and [place] | + + + | Address | Unknown | + + + | Phone | Unavailable | + + + Support + + + + + | Name | Relationship | Address | Phone | + + + + + | Araceli Sibley | ECON | [place], [place] | | | | | [address] | | + + + + + Care Team Providers + +------+ + | Care Cna Pct Name | Role | Phone | + +------+ + PCP | Unavailable | + +------+ + Encounter Details +--------+ + + + + | Date | Type | Department | Care Team | Description | +--------+ + + + + | 02/22/ | Hospital | [facility] | | | | 1996 | Encounter | MED CTR EMERGENCY | | | | | | [place] | | | | | | [place] | | | | | | [address] | | | | | | [phone] | | | +--------+ + + + [...] | | | | | [place] | | | | | | [address] | | | | | | | | +--------+---------+ + + + documented as of this encounter Visit Diagnoses Not on filedocumented in this encounter"
--- OUTSIDE RECORDS SUMMARY | ~2019-10-23 | XMS | Encounter Summary ---
Demographics + + + | Address | [address] | | | [place] [address] | + + + | Home Phone [...] [place] | | | | | [address] | | + + + + + Care Team Providers + +------+ + | Care Outsole Cutter Machine Name | Role | Phone | [...] [place] | | | | | | [address] | | | | | | [phone] | | | +--------+ + + + [...] [place] | | | | | | [address] | | | | | | | | +--------+---------+ + + + documented as of this encounter Visit Diagnoses Not on filedocumented in this encounter"
--- OUTSIDE RECORDS SUMMARY | ~2019-10-23 | XMS | Encounter Summary ---
Demographics + + + | Address | [address] | | | [place] [address] | + + + | Home Phone [...] [place] | | | | | [address] | | + + + + + Care Team Providers + +------+ + | Care Chief Sustainability Officer Name | Role | Phone | [...] + + | 08/08/ | Telephone | [facility] | Ashley Chávez | Other (Questions | | 2019 | | CARDIOLOGY [place] | Pollo, Draw Hand | about coverage. ) | | | | [address] | | | | | | [place] | | | | | | [address] | | | | | | [phone] | | | +--------+ + + + [...] | | | | | [place] | | | | | | [address] | | | | | | | | +--------+---------+ + + + documented as of this encounter Visit Diagnoses Not on filedocumented in this encounter"
--- OUTSIDE RECORDS SUMMARY | ~2019-10-23 | XMS | Encounter Summary ---
Demographics + + + | Address | [address] | | | [place] [address] | + + + | Home Phone [...] [place] | | | | | [address] | | + + + + + Care Team Providers + +------+ + | Care Lead Tank Mechanic Name | Role | Phone [...] + + | 08/13/ | Documentati | [facility] | Katharine Moncada, | Other (urgent | | 2019 | on | CARDIOLOGY [place] | Technologist | report) | | | | [address] | | | | | | [place] | | | | | | [address] | | | | | | [phone] | | | +--------+ + + + [...] [place] | | | | | | [address] | | | | | | | | +--------+---------+ + + + documented as of this encounter Visit Diagnoses Not on filedocumented in this encounter"
--- OUTSIDE RECORDS SUMMARY | ~2019-10-23 | XMS | Encounter Summary ---
Demographics + + + | Address | [address] | | | [place] [address] | + + + | Home Phone [...] [place], [place] | | | | | [address] | | + + + + + Care Team Providers + +------+ + | Care Supervisor Assembly Name | Role | Phone | + +------+ + PCP | Unavailable | + +------+ + Encounter Details +--------+ + + + + | Date | Type | Department | Care Team | Description | +--------+ + + + + | 05/25/ | Hospital | [facility] | | | | 1991 | Encounter | MED CTR LABORATORY | | | | | | [address] | | | | | | [place] | | | | | | [address] | | | | | | [phone] | | | +--------+ + + + [...] | | | | | [place] | | | | | | [address] | | | | | | | | +--------+---------+ + + + documented as of this encounter Visit Diagnoses Not on filedocumented in this encounter"
--- OUTSIDE RECORDS SUMMARY | ~2019-10-23 | XMS | Encounter Summary ---
Demographics + + + | Address | [address] | | | [place] [address] | + + + | Home Phone [...] [place] | | | | | [address] | | + + + + + Care Team Providers + +------+ + | Care Patient Sitter Name | Role | Phone | + [...] + + | 07/01/ | Telephone | [facility] | Frandy Teresa, | Other (Surgery ) | | 2013 | | NEUROSURGERY [address] | DO [address] | | | | | [address] | [address] [place], [place] | | | | | [place], [place] | [address] | | | | | [address] | | | | | | [phone] | | | +--------+ + + + [...] [place] | | | | | | [address] | | | | | | | | +--------+---------+ + + + documented as of this encounter Visit Diagnoses Not on filedocumented in this encounter"
--- OUTSIDE RECORDS SUMMARY | ~2019-10-23 | XMS | Encounter Summary ---
Demographics + + + | Address | [address] | | | [place] [address] | + + + | Home Phone [...] [place] | | | | | [address] | | + + + + + Care Team Providers + +------+ + | Care Lip Reading Teacher Name | Role | Phone | [...] | | | | | | | [address] | | | | | | | Phone: | | | | | | | [phone] | | | | | | | Fax: | | | | | | | [phone] | | +--------+--------+ + + + + Encounter Details +--------+---------+ + + + | Date | Type | Department | Care Team | Description | +--------+---------+ + + + | 02/27/ | Office | [facility] | Baudilio Newman | Neuropathy (Primary | | 2015 | Visit | NEUROLOGY LAURIE | MD Pollo Need updated | Dx); Sleep apnea; | | | | [address], | address | Stroke (HCC); | | | | [address] [place] | | Thyroid disease | | | | [place] [address] | | | | | | [phone] | | | +--------+---------+ + + + [...] supply of blood, brain tissue quickly dies. 0714-2250 [employer] [address] [place] [address], [place] [address]. All righ ts reserved. This information is not intended as a substitute for professional medical care. Always follow your healthcare professional's instructions. documented in this encounter Progress Notes Baudilio Newman MD - 02/27/2015 10:31 AM PDTFormatting of this note might be differen t from the original. Baudilio Newman MD [address] [facility] [place] [address] Neurology Outpatient New Patient Note Referring Provider: [...] history. Notes from her recent hospitalization at [facility] were reviewed in detail. Ms. Arndt started feeling off in the evening of 02/01. She felt dizzy and laid down to slee p. Upon waking, she felt her right side was numb. She tried to get up to go to the bathroom and realized she was weak as well on the right. She was taken to [facility] where she was diagnosed with a [...] systol ically. She was reevaluated in the [facility] ED for one such event [...] hospitalization . This specimen was characterized at [facility], but the report is not currently available for [facility]. Unfortunately, Ms. Arndt notes that [...] N/A; Surgeon: Frandy castellanos DO; Location: [facility] Current Medications: Outpatient Medications asenapine [...] tablet Take 15 mg by mouth nightly. Fenton-3 Fatty Acids (FISH OIL CONCENTRATE) 1000 MG [...] BMI 46.04 kg /m2 Neck Circumference: 14" Logan Sleepiness Scale: 2 General: well developed and [...] Romberg test negative Radiographic Review: CTA from [facility] reviewed on [facility]. No significant stenoses seen [...] No results found for this basename: hba1c, ois6bit, ldl, ldldirect, ldlext, dldlex Lab Results Component [...] | | | | | [place], [place] | | | | | | [id number] | | | | | | | [...]
--- OUTSIDE RECORDS SUMMARY | ~2019-10-23 | XMS | Encounter Summary ---
Demographics + + + | Address | [address] | | | [place] [address] | + + + | Home Phone [...] [place] | | | | | [address] | | + + + + + Care Team Providers + +------+ + | Care Corporate Relations Director Name | Role | Phone [...] + + | 02/01/ | Telephone | [facility] | Frandy Teresa, | Imaging Only | | 2019 | | NEUROSURGERY [address] | DO [address] | | | | | [address] | [address] [place], [place] | | | | | [place], [place] | [address] | | | | | [address] | | | | | | [phone] | | | +--------+ + + + [...] [place] | | | | | | [address] | | | | | | | | +--------+---------+ + + + documented as of this encounter Visit Diagnoses Not on filedocumented in this encounter"
--- OUTSIDE RECORDS SUMMARY | ~2019-10-23 | XMS | Clinical Summary ---
Demographics + + + | Address | [address] | | | [place] [address] | + + + | Home Phone [...] Author | [facility] | | | and [...] [place] | | | | | [address] | | + + + + + Care Team Providers + +------+ + | Care Garage Manager Name | Role | Phone | [...] | | Activ | | (VITAMIN D-3) [address] | mouth Once a week. | | [...] | | | | e | | (Zapper VERIO FLEX | | | | | [...] | | 2018 | | | D, Lab Pack Chemist | calling to be seen | | [...] | | 2018 | | | D, Lab Pack Chemist | to take monitor | | | | | | off. ) | +--------+ + + + + | 08/28/ | Telephone | Cardiology | Ashley Chávez | Other (Patient has | | 2018 | | | D, Lab Pack Chemist | questions about | | | | [...] to | 2018 | | | Pollo, Lab Pack Chemist | tell patient what Dr | | [...] | | 2019 | | | D, Lab Pack Chemist | anxious about urgent | | | [...] | | 2018 | | | D, Lab Pack Chemist | about coverage. ) | +--------+ + + + + | 07/30/ | Telephone | Cardiology | Ashley Chávez | Other (Patient | | 2018 | | | D, Lab Pack Chemist | concerns ) | +--------+ + + + + | 07/24/ | Telephone | Cardiology | Ashley Chávez | Other (Patient is | | 2018 | | | D, Lab Pack Chemist | worried about paying | | | [...] [place] | | | | | | [address] | | | | | | | [...] | [employer] - | | 04/02/ | [id number] | | 5ccImplanted: Qty: 1 on | | Spine | MEDT | | 2019 | | | 07/02/2014 by Frandy Teresa | | Lumbar | | | | /[id number] | | A, DO at [facility] | | | | | | 6-020 | | [facility] | | | | | | / | + +------+--------+ +--------+--------+--------+ | Graft Infuse Bone Kit Xxs - | | N/A: | SO[employer]AMOR | | 01/21/ | [id number] | | [id number]: Qty: 1 on | | Spine | DANEK - DIV | | 2014 | 0 / | | 07/02/2014 by Frandy Teresa | | Lumbar | [employer] | | | /[id number] | | A, DO at [facility] | | | - SFDK | | | [id number] | | [facility] | | | | | | | + +------+--------+ +--------+--------+--------+ | Imp Spn Spcr Cpstn 8x26mm - | | N/A: | [employer]OR | | 01/11/ | [id number] | | [id number]: Qty: 1 on | | Spine | DANEK - DIV | | 2021 | 6 / | | 07/02/2014 by Frandy Teresa | | Lumbar | [employer] | | | /[id number] | | DO Ronak at [facility] | | | - [facility]FDK | | | 928 | | [facility] | | | | | | | + +------+--------+ +--------+--------+--------+ | Set Scrw Ns G5 Brk Off Ti | | N/A: | SOFAMOR | | | [id number] | | 4.75 - [id number]: | | Spine | DANEK - DIV | | | 0 / / | | Qty: 4 on 07/02/2014 by | | Lumbar | [employer] | | | | | Frandy Teresa DO at [facility] | | | - [facility] | | | | | [facility] | | | | | | | | [place] | | | | | | | + +------+--------+ +--------+--------+--------+ | RodImplanted: Qty: 1 on | | N/A: | | | | [id number] | | 07/02/2014 by Frandy Teresa | | Spine | | | | 540 / | | DO Ronak at [facility] | | Lumbar | | | | / | | [facility] | | | | | | | + +------+--------+ +--------+--------+--------+ | RodImplanted: Qty: 1 on | | N/A: | MEDTROL - | | | [id number] | | 07/02/2014 by Frandy Teresa | | Spine | MDTR | | | 545 / | | DO Ronak at [facility] | | Lumbar | | | | / | | [facility] | | | | | | | + +------+--------+ +--------+--------+--------+ | Screw 7.5x50mm Sextant - | | N/A: | [employer] - | | | [id number] | | [id number]: Qty: 1 on | | Spine | MEDT | | | [id number] | | 07/02/2014 by Frandy Teresa | | Lumbar | | | | / / | | DO Ronak at [facility] | | | | | | | | [facility] | | | | | | | + +------+--------+ +--------+--------+--------+ | Cannulated ScrewImplanted: | | N/A: | MEDTROL - | | | [id number] | | Qty: 1 on 07/02/2014 by | | Spine | MDTR | | | [id number] | | Frandy Teresa DO at [facility] | | Lumbar | | | | / / | | [facility] | | | | | | | | CENTER | | | | | | | + +------+--------+ +--------+--------+--------+ | Cannulated ScrewImplanted: | | N/A: | [employer] - | | | [id number] | | Qty: 1 on 07/02/2014 by | | Spine | MEDT | | | [id number] | | Frandy Teresa DO at [facility] | | Lumbar | | | | / / | | [facility] | | | | | | | | [place] | | | | | | | [...] +--------+ +---------+--------+ | MEDICARE | MEDICA | [id number] | 02/22/20 | [phone] | | Medica | | | RE | | 09-Pre | 5 | | re | | | PART A | | sent | | | | | | AND B | | | | | | + +--------+ +--------+ +---------+--------+ | MEDICARE | MEDICA | [id number] | 02/22/20 | [phone] | | Medica [...] [place] | | | 1 (Home) | [address] | + +--------+ +--------+ + + | Cindy Arndt L | Person | Self | [birth year] | [address] | | al/Fam | | [phone] | [phone] | [address] [place], [place] | | | [place] | | | 1 (Home) | [address] | + +--------+ +--------+ + + Advance Directives + + + + + | Type | Date Recorded | Patient | Explanation | | | | 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
--- OUTSIDE RECORDS SUMMARY | ~2019-10-23 | XMS | Encounter Summary ---
Demographics + + + | Address | [address] | | | [place] [address] | + + + | Home Phone [...] [place] | | | | | [address] | | + + + + + Care Team Providers + +------+ + | Care Accounting File Clerk Name | Role | Phone | + +------+ + | Thierry Fry MD | PCP | | + +------+ + Encounter Details +--------+ + + + + | Date | Type | Department | Care Team | Description | +--------+ + + + + | 03/06/ | Hospital | [facility] | Katharine Cardona PA-C | Essential | | 2015 | Encounter | MED CTR LABORATORY | [address] | hypertension | | | | [address] [place] | [place] [address] | | | | | [place], [place] | [phone] | | | | | [address] | | | | | | [phone] | | | +--------+ + + + [...] 0 | | | | (VITAMIN D-3) 79368 | mouth Once a week. | | [...] + + + +---------+ + + | River[place]-3 Fatty | Take 1,000 mg by | 60 each | 5 | 03/09/20 | | | Acids (FISH OIL | mouth 2 times daily. | | | 15 | 9 | | CONCENTRATE) 1000 MG | | | | | | | CAPS | | | | | | + + + +---------+ + + | River[place]-3 Fatty | Take 1,000 mg by | [...] | | | | | [place] | | | | | | [address] | | | | | | | [...] mL/min/1.73m2 | [facility] | | | [place] | RATE,ESTIMATED | | MEDICAL | | | | mL/min/1.66e6Jxzz than | | CENTER - | | [...] | 9.6 | 8.3 - 10.5 | [facility] | | | | | mg/dL | [facility] | | | | | | MEDICAL | | | | | | CENTER - | | | | | | LABORATORY | | + + + + + + | Albumin | 4.1 | 3.2 - 5.0 g/dL | [facility] | | | | | | [facility] | | | | | [...] [address] | [place] | [phone] | | [facility] | | [address] | | | - LABORATORY | | | | + + + + + documented in this encounter Visit Diagnoses + + | Diagnosis | + + | Essential hypertension Unspecified essential hypertension | + + documented in this encounter"
--- OUTSIDE RECORDS SUMMARY | ~2019-10-23 | XMS | Encounter Summary ---
Demographics + + + | Address | [address] | | | [place] [address] | + + + | Home Phone [...] [place] | | | | | [address] | | + + + + + Care Team Providers + +------+ + | Care Vineyard Tender Name | Role | Phone | [...] + | 09/10/ | Documentati | [facility] | Katharine Moncada, | Other (urgent | | 2019 | on | CARDIOLOGY [place] | Technologist | report) | | | | [address] | | | | | | [place] | | | | | | [address] | | | | | | [phone] | | | +--------+ + + + [...] [place] | | | | | | [address] | | | | | | | | +--------+---------+ + + + documented as of this encounter Visit Diagnoses Not on filedocumented in this encounter"
--- OUTSIDE RECORDS SUMMARY | ~2019-10-23 | XMS | Encounter Summary ---
Demographics + + + | Address | [address] | | | [place] [address] | + + + | Home Phone [...] [place] | | | | | [address] | | + + + + + Care Team Providers + +------+ + | Care Emergency Physician Name | Role | Phone | [...] + | 08/26/ | Refill | [facility] | Frandy Teresa, | Medication Refill | | 2013 | | NEUROSURGERY [address] | DO [address] | | | | | [address] [address] | [address] [place], [place] | | | | | [place], [place] | [address] | | | | | [address] | | | | | | [phone] | | | +--------+--------+ + + + [...] | | | | | [place] | | | | | | [address] | | | | | | | | +--------+---------+ + + + documented as of this encounter Visit Diagnoses Not on filedocumented in this encounter"
--- OUTSIDE RECORDS SUMMARY | ~2019-10-23 | XMS | Encounter Summary ---
Demographics + + + | Address | [address] | | | [place] [address] | + + + | Home Phone [...] [place], [place] | | | | | [address] | | + + + + + Care Team Providers + +------+ + | Care Wildlife Science Professor Name | Role | Phone | [...] | SR | | | | | [phone] | | | +--------+ + + + [...] [place] | | | | | | [address] | | | | | | | | +--------+---------+ + + + documented as of this encounter Visit Diagnoses Not on filedocumented in this encounter
--- OUTSIDE RECORDS SUMMARY | ~2019-10-23 | XMS | Encounter Summary ---
Demographics + + + | Address | [address] | | | [place] [address] | + + + | Home Phone [...] [place], [place] | | | | | [address] | | + + + + + Care Team Providers + +------+ + | Care Metallurgical Tester Name | Role | Phone | + +------+ + PCP | Unavailable | + +------+ + Encounter Details +--------+ + + + + | Date | Type | Department | Care Team | Description | +--------+ + + + + | 02/16/ | Hospital | [facility] | | | | 1994 | Encounter | MED CTR LABORATORY | | | | | | [address] | | | | | | [place] | | | | | | [address] | | | | | | [phone] | | | +--------+ + + + [...] | | | | | [place] | | | | | | [address] | | | | | | | | +--------+---------+ + + + documented as of this encounter Visit Diagnoses Not on filedocumented in this encounter"
--- OUTSIDE RECORDS SUMMARY | ~2019-10-23 | XMS | Encounter Summary ---
Demographics + + + | Address | [address] | | | [place] [address] | + + + | Home Phone [...] [place] | | | | | [address] | | + + + + + Care Team Providers + +------+ + | Care Plating Tank Operator Name | Role | Phone [...] [address] | | | | | [place], [place] | Shaheen Simons | | | | | [address] | [place] [address] | | | | | [phone] | [phone] | | | | | | | [...] [place] | | | | | | [address] | | | | | | | [...] GIVEN Testing | | | performed at [facility];[address] [place] [address] CULTURE | | | 50,000 TO 100,000 CFU/ML | | | MIXED GRAM POSITIVE HAIDER NO SUSCEPTIBILITY TO FOLLOW | | | MULTIPLE ORGANISM TYPES PRESENT, | | | SUGGESTIVE OF CONTAMINATION OR COLONIZATION. SUGGEST RECOLLECTION FOR | | | CULTURE. Testing | | | performed at [facility];[address] [place] [address];[place] [address] REPORT | | | STATUS 06/08/2012 FINAL [...]
--- OUTSIDE RECORDS SUMMARY | ~2019-10-23 | XMS | Encounter Summary ---
Demographics + + + | Address | [address] | | | [place] [address] | + + + | Home Phone [...] [place], [place] | | | | | [address] | | + + + + + Care Team Providers + +------+ + | Care Threading Machine Tender Name | Role | Phone | + +------+ + PCP | Unavailable | + +------+ + Encounter Details +--------+ + + + + | Date | Type | Department | Care Team | Description | +--------+ + + + + | 02/02/ | Hospital | [facility] | | | | 1997 | Encounter | MED CTR EMERGENCY | | | | | | [address] | | | | | | [place] | | | | | | [address] | | | | | | [phone] | | | +--------+ + + + [...] | | | | | [place] | | | | | | [address] | | | | | | | | +--------+---------+ + + + documented as of this encounter Visit Diagnoses Not on filedocumented in this encounter"
--- OUTSIDE RECORDS SUMMARY | ~2019-10-23 | XMS | Encounter Summary ---
Demographics + + + | Address | [address] | | | [place] [address] | + + + | Home Phone [...] [place] | | | | | [address] | | + + + + + Care Team Providers + +------+ + | Care Rn Hemodialysis Name | Role | Phone | + [...] [place] | | | | | | [address] | | | | | | [phone] | | | +--------+ + + + [...] [place] | | | | | | [address] | | | | | | | | +--------+---------+ + + + documented as of this encounter Visit Diagnoses Not on filedocumented in this encounter"
--- OUTSIDE RECORDS SUMMARY | ~2019-10-23 | XMS | Encounter Summary ---
Demographics + + + | Address | [address] | | | [place] [address] | + + + | Home Phone [...] [place], [place] | | | | | [address] | | + + + + + Care Team Providers + +------+ + | Care Customer Data Technician Name | Role | Phone | + +------+ + PCP | Unavailable | + +------+ + Encounter Details +--------+ + + + + | Date | Type | Department | Care Team | Description | +--------+ + + + + | 02/02/ | Hospital | [facility] | Serafin Bautista | | | 2012 | Encounter | MED CTR XRAY [address] | T, MD [address] | | | | | [place] | [address] [place], [place] | | | | | [place] [address] | [address] | | | | | [phone] | | | +--------+ + + + [...] [place] | | | | | | [address] | | | | | | | [...] Performed At | + + + | [facility] Diagnostic Imaging Department | [facility] | | [address] | [facility] | | PROCEDURE: EPIDURAL STEROID | [...] Transcribed Date/Time: | | | 02/03/2012 18:45 Bread Icer: <Electronically Signed | | | by Serafin Bautista MD> 02/14/12 0916 | | + + + + + | Procedure Note | + + | Juan, Rad Conversion - 11/30/2013 5:06 PM [facility] | | Diagnostic Imaging Department | | [address] | | | | | | [...] | Transcribed Date/Time: 02/03/2012 18:45 | | Bread Icer: LaMAHIN | | <Electronically Signed by Serafin [...]
--- OUTSIDE RECORDS SUMMARY | ~2019-10-23 | XMS | Encounter Summary ---
Demographics + + + | Address | [address] | | | [place] [address] | + + + | Home Phone [...] [place], [place] | | | | | [address] | | + + + + + Care Team Providers + +------+ + | Care Dust Mill Operator Name | Role | Phone | + +------+ + PCP | Unavailable | + +------+ + Encounter Details +--------+ + + + + | Date | Type | Department | Care Team | Description | +--------+ + + + + | 05/23/ | Hospital | [facility] | Dale, Heath E A, | | | 2012 | Encounter | MED CTR XRAY [address] | MD [address] | | | | | [place] | [place] | | | | | [place] [address] | [address] | | | | | [phone] | | | +--------+ + + + [...] + + + +---------+ + + | [place]-3 Fatty | Take 1,000 mg by | [...] [place] | | | | | | [address] | | | | | | | [...] Performed At | + + + | [facility] Diagnostic Imaging Department | [facility] | | [address] [facility] | [facility] | | LUMBAR SPINE MR WITHOUT CONTRAST, [...] Transcribed Date/Time: | | | 05/23/2012 16:55 Bulk Intake Worker: <Electronically Signed | | | by Adriano Anne MD> 05/23/12 4405 | | + + + + + | Procedure Note | + + | Manohar Martinez Conversion - 11/30/2013 5:47 PM [facility] | | Diagnostic Imaging Department [address] [facility] [place] | | LUMBAR SPINE MR WITHOUT CONTRAST, [...] 16:37 | |Transcribed Date/Time: 05/23/2012 16:55 | |Bulk Intake Worker: | |<Electronically Signed by Adriano Anne MD> [...]
--- OUTSIDE RECORDS SUMMARY | ~2019-10-23 | XMS | Encounter Summary ---
Demographics + + + | Address | [address] | | | [place] [address] | + + + | Home Phone [...] [place] | | | | | [address] | | + + + + + Care Team Providers + +------+ + | Care Associate Account Manager Name | Role | Phone [...] | | | spondylolist | | [address] | | | | | hesis | | [place], | | | | | Spinal | | [place] [address] | | | | | stenosis, | | Phone: | | | | | lumbar | | [phone] | | | | | region, | | Fax: | | | | | without | | [phone] | | | | | neurogenic | [...] | | | | | | | AR ARTHDSIS | | | | | | [...] | | | | | | ION AR | | | | | | | [...] | | | | | | SEG AR | | | | | | | [...] + | 07/02/ | Surgery | [facility] | Frandy Teresa, | MIS L5-S1 | | 2013 | | MED CTR OR INTRA OP | DO [address] | TRANSFORAMINAL | | | | [address] | [address] [place], [place] | LUMBAR INTERBODY | | | | [place] | [id number] | FUSION | | | | [address] | | | | | | [phone] | | | +--------+---------+ + + + [...] might be different fro m the original. [facility] DISCHARGE SUMMARY PATIENT NAME: Cindy [...] Stable for discharge to SNF. DISPOSITION: SNF ([facility]) DISCHARGE MEDICATIONS Medications prior to [...] Take 15 mg by mouth nightl y. [place]-3 Fatty Acids (FISH OIL CONCENTRATE) 1000 MG [...] + + + +---------+ + + | Holly-3 Fatty | Take 1,000 mg by | [...] prophylaxis -DC plan: SNF versus home with [facility] any time. aria T Neff RN - 07/04/2014 6:56 PM PDTFoley cath dc'd and MARI drain dc'd no problems. Chris Lynn PA-C - 07/04/2014 7:43 AM PDT [facility] PROGRESS NOTE Pt. Name/Age/: Cindy Arndt 58 y.o. 1955 Med. Record Number: [id number] Date of admission: 07/02/2014 Subjective: The patient [...] D/C plan: Home tomorrow with [facility]. D/c mari drain and riley cath today. 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 Patient Active Problem List Diagnosis LUMBAR DISC [...] by: Chris Nicole, 07/04/2014 7:45 [facility] Chris Lynn PA-C - 07/03/2014 7:13 AM PDT . [facility] PROGRESS NOTE Pt. Name/Age/: Cindy Arndt 58 y.o. 1955 Med. Record Number: [id number] Date of admission: 07/02/2014 Subjective: The patient [...] Electronically signed by: Chris Nicole, 07/03/2014 7:13 [facility] Ton Johnston, KRIS - 07/03/2014 [...] | | | | | [place] | | | | | | [address] | | | | | | | [...] + | [facility] | [address] | [place], [place] | [phone] | | [facility] | | [address] | | | - LABORATORY | | | | + + + + + | [facility] | [address] | [place], [place] | | | [facility] | | [address] | | | - LABORATORY | | [...] + | [facility] | [address] | [place] | [phone] | | [facility] | | [address] | | | - LABORATORY | | | | + + + + + | [facility] | [address] | [place] | | | [facility] | | [address] | | | - LABORATORY | | [...] + | [facility] | [address] | [place], [place] | [phone] | | [facility] | | [address] | | | - LABORATORY | | | | + + + + + | [facility] | [address] | [place], [place] | | | [facility] | | [address] | | | - LABORATORY | | [...] + | [facility] | [address] | [place] | [phone] | | [facility] | | [address] | | | - LABORATORY | | | | + + + + + | [facility] | [address] | [place], [place] | | | [facility] | | [address] | | | - LABORATORY | | [...] + | [facility] | [address] | [place], [place] | [phone] | | [facility] | | [address] | | | - LABORATORY | | | | + + + + + | [facility] | [address] | [place] | | | [facility] | | [address] | | | - LABORATORY | | [...] + | [facility] | [address] | [place] | [phone] | | [facility] | | [address] | | | - LABORATORY | | | | + + + + + | [facility] | [address] | [place] | | | [facility] | | [address] | | | - [...] + | [facility] | [address] | [place] | [phone] | | [facility] | | [address] | | | - LABORATORY | | | | + + + + + | [facility] | [address] | [place] | | | [facility] | | [address] | | | - LABORATORY | | [...] + | [facility] | [address] | [place] | [phone] | | [facility] | | [address] | | | - LABORATORY | | | | + + + + + | [facility] | [address] | [place] | | | [facility] | | [address] | | | - LABORATORY | | [...] [address] | [place] | [phone] | | [facility] | | [address] | | | - LABORATORY | | | | + + + + + | [facility] | [address] | [place], [place] | | | [facility] | | [address] | | | - LABORATORY | | [...] | of hardware for posterior fusion from I8orgwosw S1 with interbody hardware at L5-S1. The [...] + | MISCELLANEOUS LAB | | | [phone] | + +---------+ + + | MISCELANIOUS LAB | | | [phone] | + +---------+ + + POC Glucose [...] + | [facility] | [address] | [place] | [phone] | | [facility] | | [address] | | | - LABORATORY | | | | + + + + + | [facility] | [address] | [place] | | | [facility] | | [address] | | | - LABORATORY | | [...] + | [facility] | [address] | [place], [place] | [phone] | | [facility] | | [address] | | | - LABORATORY | | | | + + + + + | [facility] | [address] | [place] | | | [facility] | | [address] | | | - LABORATORY | | [...] | | | POC | | | [facility] | | | | | | [...] + | [facility] | [address] | [place] | [phone] | | [facility] | | [address] | | | - LABORATORY | | | | + + + + + | [facility] | [address] | [place] | | | [facility] | | [address] | | | - LABORATORY | | [...] + | [facility] | [address] | [place] | [phone] | | [facility] | | [address] | | | - LABORATORY | | | | + + + + + | [facility] | [address] | [place] | | | [facility] | | [address] | | | - LABORATORY | | [...] + | [facility] | [address] | [place], [place] | [phone] | | [facility] | | [address] | | | - LABORATORY | | | | + + + + + | [facility] | [address] | [place], [place] | | | [facility] | | [address] | | | - LABORATORY | | [...] ST. | [address] | [place] | | | [facility] | | [address] | | | - BLOOD BANK | [...] mLs | | Surgical | | 1:200,000 0.25-1:087370 % | | 14 12:42 | | [...]
--- OUTSIDE RECORDS SUMMARY | ~2019-10-23 | XMS | Encounter Summary ---
Demographics + + + | Address | [address] | | | [place] [address] | + + + | Home Phone [...] [place] | | | | | [address] | | + + + + + Care Team Providers + +------+ + | Care Truck Driver Name | Role | Phone [...] | | | spondylolist | | [address] | | | | | hesis | | [place], | | | | | Spinal | | [place] [address] | | | | | stenosis, | | Phone: | | | | | lumbar | | [phone] | | | | | region, | | Fax: | | | | | without | | [phone] | | | | | neurogenic | [...] | 07/02/ | Hospital | [facility] | Frandy Teresa, | Degenerative disc | | 2013 - | Encounter | MED CTR SURGICAL | DO [address] | disease, lumbar | | | | [address] | [place] [address] [place] [address] | (Primary Dx); | | 07/05/ | | [place] [address] | [phone] | Diabetes mellitus | | 2013 | | [phone] | | ([facility]); Disturbance | | | | [...] Stable for discharge to SNF. DISPOSITION: SNF ([facility]) DISCHARGE MEDICATIONS Medications prior to admission [...] Take 15 mg by mouth nightl y. [place]-3 Fatty Acids (FISH OIL CONCENTRATE) 1000 MG [...] + + + +---------+ + + | [place]-3 Fatty | Take 1,000 mg by | [...] plan: SNF versus home with [facility] any time. Maria T Storm RN - 07/04/2014 6:56 PM PDTFoley cath dc'd and MARI drain dc'd no problems. Chris Lynn PA-C - 07/04/2014 7:43 AM PDT [facility] PROGRESS NOTE Pt. Name/Age/: Cindy Arndt 58 y.o. 1955 Med. Record Number: [id number] Date of admission: 07/02/2014 Subjective: The patient [...] home medications. D/C plan: Home tomorrow with [facility]. D/c mari drain and riley cath today. D/c remediation technician. Patient Active Problem List Diagnosis LUMBAR [...] by: Chris Nicole, 07/04/2014 7:[address] [facility] Chris Lynn PA-C - 07/03/2014 7:13 AM PDT . [facility] and Services PROGRESS NOTE Pt. Name/Age/: Cindy Arndt 58 y.o. 1955 Med. Record Number: [id number] Date of admission: 07/02/2014 Subjective: The patient [...] Electronically signed by: Chris Nicole, 07/03/2014 7:13 [facility] Ton Menjivar, KRIS - 07/03/2014 6:50 [...] [place] | | | | | | [address] | | | | | | | [...] + | [facility] | [address] | [place], [place] | [phone] | | [facility] | | [address] | | | - LABORATORY | | | | + + + + + | [facility] | [address] | [place], [place] | | | [facility] | | [address] | | | - LABORATORY | | [...] + | [facility] | [address] | [place] | [phone] | | [facility] | | [address] | | | - LABORATORY | | | | + + + + + | [facility] | [address] | [place] | | | [facility] | | [address] | | | - LABORATORY | | [...] + | [facility] | [address] | [place] | [phone] | | [facility] | | [address] | | | - LABORATORY | | | | + + + + + | [facility] | [address] | [place] | | | [facility] | | [address] | | | - LABORATORY | | [...] + | [facility] | [address] | [place], [place] | [phone] | | [facility] | | [address] | | | - LABORATORY | | | | + + + + + | [facility] | [address] | [place], [place] | | | [facility] | | [address] | | | [...] + | [facility] | [address] | [place] | [phone] | | [facility] | | [address] | | | - LABORATORY | | | | + + + + + | [facility] | [address] | [place] | | | [facility] | | [address] | | | - LABORATORY | | [...] + | [facility] | [address] | [place] | [phone] | | [facility] | | [address] | | | - LABORATORY | | | | + + + + + | [facility] | [address] | [place] | | | [facility] | | [address] | | | - LABORATORY | | [...] [address] | [place] | [phone] | | [facility] | | [address] | | | - LABORATORY | | | | + + + + + | [facility] | [address] | [place] | | | [facility] | | [address] | | | - LABORATORY | | [...] + | [facility] | [address] | [place], [place] | [phone] | | [facility] | | [address] | | | - LABORATORY | | | | + + + + + | [facility] | [address] | [place], [place] | | | [facility] | | [address] | | | - LABORATORY | | [...] [address] | [place] | [phone] | | [facility] | | [address] | | | - LABORATORY | | | | + + + + + | [facility] | [address] | [place], [place] | | | [facility] | | [address] | | | - LABORATORY | | [...] | of hardware for posterior fusion from [id number] S1 with interbody hardware at L5-S1. The [...] + | Performing | Address | City/State/[facility] | Phone Number | | Organization | | | | + +---------+ + + | MISCELLANEOUS LAB | | | [phone] | + +---------+ + + | MISCELANIOUS LAB | | | [phone] | + +---------+ + + POC Glucose [...] + | [facility] | [address] | [place], [place] | [phone] | | [facility] | | [address] | | | - LABORATORY | | | | + + + + + | [facility] | [address] | [place], [place] | | | [facility] | | [address] | | | - LABORATORY | | [...] + | [facility] | [address] | [place] | [phone] | | [facility] | | [address] | | | - LABORATORY | | | | + + + + + | [facility] | [address] | [place] | | | [facility] | | [address] | | | - LABORATORY | | [...] | | | POC | | | [facility] | | | | | [...] + | [facility] | [address] | [place] | [phone] | | [facility] | | [address] | | | - LABORATORY | | | | + + + + + | [facility] | [address] | [place] | | | [facility] | | [address] | | | - LABORATORY | | [...] + | [facility] | [address] | [place], [place] | [phone] | | [facility] | | [address] | | | - LABORATORY | | | | + + + + + | [facility] [facility] | [address] | [place] | | | [facility] | | [address] | | | - LABORATORY | | [...] + | [facility] | [address] | [place] | [phone] | | [facility] | | [address] | | | - LABORATORY | | | | + + + + + | [facility] | [address] | [place] | | | [facility] | | [address] | | | - LABORATORY | | [...] [place] | | | [facility] | | [address] | | | - BLOOD BANK | [...] + +---------+ +---+---+---+ | morphine 5 mg/mL SQL REPORT DEVELOPER syringe | New Bag | 07/02/20 [...] | | | | Dose(mg): 0, Starting SQL REPORT DEVELOPER | | | | | | | Dose(mg): 1, Incremental Increase | | | | | | | SQL REPORT DEVELOPER Dose(mg): 0.5, Maximum SQL REPORT DEVELOPER | | | | | | [...]
--- OUTSIDE RECORDS SUMMARY | ~2019-10-23 | XMS | Encounter Summary ---
Demographics + + + | Address | [address] | | | [place] [address] | + + + | Home Phone [...] [place], [place] | | | | | [address] | | + + + + + Care Team Providers + +------+ + | Care Lucerne Farmer Name | Role | Phone | + +------+ + PCP | Unavailable | + +------+ + Encounter Details +--------+ + + + + | Date | Type | Department | Care Team | Description | +--------+ + + + + | 05/23/ | Hospital | [facility] | Dale, Heath E A, | | | 2012 | Encounter | MED CTR XRAY [address] | MD [address] | | | | | [place] | [place] | | | | | [place] [address] | [address] | | | | | [phone] | | | +--------+ + + + [...] + + + +---------+ + + | Mcgill-3 Fatty | Take 1,000 mg by | [...] [place] | | | | | | [address] | | | | | | | [...] At | + + + | [facility] Diagnostic Imaging Department | [facility] | | [address] | [facility] | | LUMBAR SPINE MR [...] Transcribed Date/Time: | | | 05/23/2012 16:55 Steam Table Associate: <Electronically Signed | | | by Adriano Anne MD> 05/23/12 7095 | | + + + + + | Procedure Note | + + | Manohar Martinez Conversion - 11/30/2013 5:47 PM [facility] | | Diagnostic Imaging Department [address] [facility] [place] | | LUMBAR SPINE MR WITHOUT CONTRAST, [...] 16:37 | |Transcribed Date/Time: 05/23/2012 16:55 | |Steam Table Associate: | |<Electronically Signed by Adriano Anne MD> [...]
--- OUTSIDE RECORDS SUMMARY | ~2019-10-23 | XMS | Encounter Summary ---
Demographics + + + | Address | [address] | | | [place] [address] | + + + | Home Phone [...] [place], [place] | | | | | [address] | | + + + + + Care Team Providers + +------+ + | Care Business Unit Manager Name | Role | Phone | + +------+ + PCP | Unavailable | + +------+ + Encounter Details +--------+ + + + + | Date | Type | Department | Care Team | Description | +--------+ + + + + | 12/09/ | Hospital | [facility] | Serafin Bautista | | | 2012 | Encounter | MED CTR XRAY [address] | T, MD [address] | | | | | [place] | ST [place], [place] | | | | | [place] [address] | [address] | | | | | [phone] | | | +--------+ + + + [...] [place] | | | | | | [address] | | | | | | | [...] Performed At | + + + | [facility] Diagnostic Imaging Department | [facility] | | [address] | [facility] | | PROCEDURE NOTE EPIDURAL | [...] Manohar Martinez Conversion - 11/30/2013 4:45 PM [facility] | | Diagnostic Imaging Department | | [address] [facility] | | | | | [...] + + | Performing | Address | City/State/[facility] | Phone Number | | Organization | | | | + +---------+ + + | [place] | | | | | [facility] | | | | + +---------+ + + documented in this encounter Visit Diagnoses Not on filedocumented in this encounter"
--- OUTSIDE RECORDS SUMMARY | ~2019-10-23 | XMS | Encounter Summary ---
Demographics + + + | Address | [address] | | | [place] [address] | + + + | Home Phone [...] [place] | | | | | [address] | | + + + + + Care Team Providers + +------+ + | Care Repairer Handtools Name | Role | Phone | + [...] [place] | | | | | | [address] | | | | | | [phone] | | | +--------+ + + + [...] [place] | | | | | | [address] | | | | | | | | +--------+---------+ + + + documented as of this encounter Visit Diagnoses Not on filedocumented in this encounter"
--- OUTSIDE RECORDS SUMMARY | ~2019-10-23 | XMS | Encounter Summary ---
Demographics + + + | Address | [address] | | | [place] [address] | + + + | Home Phone [...] [place] | | | | | [address] | | + + + + + Care Team Providers + +------+ + | Care Air Brake Operator Name | Role | Phone | + +------+ + PCP | Unavailable | + +------+ + Encounter Details +--------+ + + + + | Date | Type | Department | Care Team | Description | +--------+ + + + + | 04/27/ | Hospital | [facility] | Sage Garza MD | | | 2001 | Encounter | HOSPITAL EMERGENCY | | | | | | CENTER [address] [place], [place] | | | | | | [address] | | | | | | [phone] | | | +--------+ + + + [...] [place] | | | | | | [address] | | | | | | | | +--------+---------+ + + + documented as of this encounter Visit Diagnoses Not on filedocumented in this encounter"
--- OUTSIDE RECORDS SUMMARY | ~2019-10-23 | XMS | Encounter Summary ---
Demographics + + + | Address | [address] | | | [place] [address] | + + + | Home Phone [...] [place] | | | | | [address] | | + + + + + Care Team Providers + +------+ + | Care Sulfate Drier Machine Operator Name | Role | Phone [...] [address] [address] | [address] [place], [place] | | | | | [place], [place] | [id number] | | | | | [address] | | | | | | [phone] | | | +--------+ + + + [...] | | | | | [place] | | | | | | [address] | | | | | | | | +--------+---------+ + + + documented as of this encounter Visit Diagnoses Not on filedocumented in this encounter"
--- OUTSIDE RECORDS SUMMARY | ~2019-10-23 | XMS | Encounter Summary ---
Demographics + + + | Address | [address] | | | [place] [address] | + + + | Home Phone [...] [place] | | | | | [address] | | + + + + + Care Team Providers + +------+ + | Care Physician Ophthalmologist Name | Role | Phone | + +------+ + | Basim Bolanos MD | PCP | | + +------+ + Encounter Details +--------+ + + + + | Date | Type | Department | Care Team | Description | +--------+ + + + + | 04/18/ | Abstract | [facility] [place] | [facility], | | | 2012 | | GASTROENTEROLOGY | FORTUNATO Thomas [address] | | | | | [address] [place] | [place], [address] | | | | | [address] [place], [place] | [place], [place] | | | | | [address] | [address] | | | | | [phone] | | | +--------+ + + + [...] | | | | | [place] | | | | | | [id number] | | | | | | | | +--------+---------+ + + + documented as of this encounter Visit Diagnoses Not on filedocumented in this encounter"
--- OUTSIDE RECORDS SUMMARY | ~2019-10-23 | XMS | Encounter Summary ---
Demographics + + + | Address | [address] | | | [place] [address] | + + + | Home Phone [...] [place] | | | | | [address] | | + + + + + Care Team Providers + +------+ + | Care Wind Turbine Sheet Metal Worker Name | Role | Phone | [...] | Office | [facility] | Deon Gonzales | ROGERS (obstructive | | 2012 | Visit | SLEEP DISORDER [address] | MD La[address] | sleep apnea) | | | | [address] [place] | [address] [place] | (Primary Dx); | | | | [place] [address] | [place] [address] | Sleepiness | | | | [phone] | [phone] | | | | | | | [...] differen t from the original. 03/06/13 [address] [place] Sleepiness Scale Sitting and reading 3 Watching [...] by mouth Daily., Disp: , Rfl: ; [place]-3 Fatty Acids (FISH OIL CONCENTRATE) 1000 MG [...] | | | | | [place] | | | | | | [id number] | | | | | | | | +--------+---------+ + + + documented as of this encounter Visit Diagnoses + + | Diagnosis | + + | ROGERS (obstructive sleep apnea) - Primary Obstructive sleep apnea (adult) (pediatric) | + + | Sleepiness Other alteration of consciousness | + + documented in this encounter"
--- OUTSIDE RECORDS SUMMARY | ~2019-10-23 | XMS | Encounter Summary ---
Demographics + + + | Address | [address] | | | [place] [address] | + + + | Home Phone [...] [place] | | | | | [address] | | + + + + + Care Team Providers + +------+ + | Care Art Teacher Name | Role | Phone | [...] + + | 03/26/ | Telephone | [facility] | Thierry Fry | Medication Prior | | 2015 | | MEDICINE [facility] Daniel | MD Lisa [address] | Authorization | | | | [facility] | [facility] | (Dexilant 60Mg) | | | | [place] [address] | [address] | | | | | [phone] | | | +--------+ + + + [...] [place] | | | | | | [address] | | | | | | | | +--------+---------+ + + + documented as of this encounter Visit Diagnoses Not on filedocumented in this encounter"
--- OUTSIDE RECORDS SUMMARY | ~2019-10-23 | XMS | Encounter Summary ---
Demographics + + + | Address | [address] | | | [place] [address] | + + + | Home Phone [...] [place] | | | | | [address] | | + + + + + Care Team Providers + +------+ + | Care Legislative Advocate Name | Role | Phone | + [...] + + | 06/28/ | Telephone | [facility] | Ashley Chávez | Talia (Patient | | 2019 | | CARDIOLOGY GENESIS Abad, Painter And Paperhanger Apprentice | called to cancel her | | | | [address] | | appointment) | | | | [place] | | | | | | [address] | | | | | | [phone] | | | +--------+ + + + [...] [place] | | | | | | [address] | | | | | | | | +--------+---------+ + + + documented as of this encounter Visit Diagnoses Not on filedocumented in this encounter"
--- OUTSIDE RECORDS SUMMARY | ~2019-10-23 | XMS | Encounter Summary ---
Demographics + + + | Address | [address] | | | [place] [address] | + + + | Home Phone [...] [place] | | | | | [address] | | + + + + + Care Team Providers + +------+ + | Care Direct Support Staff Member Name | Role | Phone | [...] | | | | | mellitus, | [address] | [place] | | | | | controlled | Phone: | [phone] | | | | | (HCC) | [phone] | Phone: | | | | | History of | Fax: | [phone] | | | | | gastric | [phone] | Fax: | | | | | restrictive | | [phone] | | | | | surgery | [...] | | | y Type 2 | [address] | [place] | | | | | diabetes | Phone: | [phone] | | | | | mellitus, | [phone] | Phone: | | | | | controlled | Fax: | [phone] | | | | | (HCC) | [phone] | Fax: | | | | | Obesity, | | [phone] | | | | | Class III, [...] | | FORTUNATO & Katharine BUCIO in [place]. | + + + | Other | [...] MEDICINE [address] | [address] [address] | to acquired atrophy | | | | Street [place] | [place] [address] | of thyroid (Primary | | | | [place] [address] | [phone] | Dx); Essential | | | | [phone] | | hypertension; Iron | | | | | | deficiency anemia; | | | | | | Schizoaffective | | | | | | disorder, bipolar | | | | | | type (HCC); | | | | | | Neuropathy; BACK | | | | | | PAIN, LUMBAR, WITH | | | | | | RADICULOPATHY; ROGRES | | | | | | on CPAP; Stroke | | | | | | ([facility]); Environmental | | | | [...] | | | | obesity) ([facility]); | | | | | | Type 2 diabetes | | | | | | mellitus, controlled | | | | | | ([facility]); Preventative | | | | [...] t be different from the original. Ask [facility] if they think it might be helpful [...] Cont your meds as prescribed. F/U with [facility] as scheduled Neuropathy Continue gabapentin. May consider increase if pain is not controlled. May benefit from switching from Paxil to one of the SNRIs or TCAs for analgesic effects, holly manju, she is doing so well on her current regimen it may not be worth making any changes an d find alternate ways to deal with the pain. Would be worth discussing with [facility] Psych Back Pain Will refer to water therapy (aqua fitness) at [facility] as request ed. ROGERS on [...] 4. Schizoaffective disorder, bipolar type ([facility]) 5. Neuropathy Vitamin B-12 6. BACK PAIN, LUMBAR, WITH RADICULOPATHY Ambulatory referral to Physical Therapy 7. ROGERS on CPAP 8. Stroke ([facility]) 9. Environmental and seasonal allergies fluticasone (FLONASE) 50 mcg/nasal spray 10. Gastroesophageal reflux disease without esophagitis dexlansoprazole (DEXILANT) 60 mg D R capsule 11. History of gastric restrictive surgery Vitamin D, 25-Hydroxy Nutrition Services - External - AMB Referral 12. Obesity, Class III, BMI 40-49.9 (morbid obesity) ([facility]) Ambulatory referral to Physical Therapy Nutrition Services - External - AMB Referral 13. Type 2 diabetes mellitus, controlled ([facility]) Ambulatory referral to Physical Therapy [...] Cont your meds as prescribed. F/U with [facility] as scheduled Neuropathy Continue gabapentin. May consider [...] the pain. Would be worth discussing with [facility] professional. Back Pain Will refer to water therapy (aqua fitness) [facility] request ed. Cont home exercise, stretching, [...] plan. The above note was dictated using Carsabi voice recognition software. It may have not been proofread in entirety. Minor errors in grammar may occur. CHIEF COMPLAINT Chief Complaint Patient presents with Establish Care Presents to establish care. Former patient of [facility] in [place]. Other Possible stroke January 2015. Is now [...] auditory, at 36. 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 She is now very well controlled on Saphris, Depakote, and Paxi l. She is followed by [facility] in [place]. She has DM2 that is well controlled [...] worked up by steve rowe, Dr [place], [place]. More recently, she presented to ED with [...] N/A; Surgeon: Frandy castellanos DO; Location: [facility] MAIN OR SOCIAL HISTORY History Social History [...] mg by mouth Daily. Cholecalciferol (VITAMIN D-3) 02245 units CAPS Oral Take 50,000 Units by [...] Oral Take 10 mg by mouth nightly. [place]-3 Fatty Acids (FISH OIL CONCENTRATE) 1000 MG [...] [place] | | | | | | [id number] | | | | | | | [...] | | | | controlled ([facility]) | | | | | | Obesity, Class III, | | | | | | BMI 40-49.9 (morbid | | | | | | obesity) ([facility]) | | + + +--------+ + + | Nutrition Services - | Outpatient | Routin | Iron deficiency | Ordered: 03/06/2015 | | External - AMB | Referral | e | anemia Type 2 | | | Referral | | | diabetes mellitus, | | | | | | controlled ([facility]) | | | | | | History of gastric | | | | | | restrictive surgery | | | | | | Obesity, Class III, | | | | | | BMI 40-49.9 (morbid | | | | | | obesity) ([facility]) | | + + +--------+ [...] | 0.66 | 0.60 - 1.30 | [facility] | | | | | mg/dL [...] mL/min/1.73m2 | [facility] | | | [facility] | RATE,ESTIMATED | | MEDICAL | | | | mL/min/1.39m9Ghmb than | | CENTER - | | [...] [address] | [place] | [phone] | | [facility] | | [address] | | | - LABORATORY | | [...] + | Type 2 diabetes mellitus, controlled ([facility]) Type II or unspecified type diabetes | | mellitus without mention of complication, not stated as uncontrolled | + + | Preventative health care Routine general medical examination at a health care | | facility | + + documented in this encounter
--- OUTSIDE RECORDS SUMMARY | ~2019-10-23 | XMS | Encounter Summary ---
Demographics + + + | Address | [address] | | | [place] [address] | + + + | Home Phone [...] [place] | | | | | [address] | | + + + + + Care Team Providers + +------+ + | Care Editor House Organ Name | Role | Phone | + [...] + | 07/19/ | Telephone | [facility] | Frandy Teresa, | Appointment | | 2013 | | NEUROSURGERY [address] | DO [address] | | | | | [address] | [address] [place], [place] | | | | | [place], [place] | [address] | | | | | [address] | | | | | | [phone] | | | +--------+ + + + [...] [place] | | | | | | [address] | | | | | | | | +--------+---------+ + + + documented as of this encounter Visit Diagnoses Not on filedocumented in this encounter"
--- OUTSIDE RECORDS SUMMARY | ~2019-10-23 | XMS | Encounter Summary ---
Demographics + + + | Address | [address] | | | [place] [address] | + + + | Home Phone [...] [place] | | | | | [address] | | + + + + + Care Team Providers + +------+ + | Care Arc Furnace Operator Name | Role | [...] + + | 08/28/ | Telephone | [facility] | Ashley Chávez | Other (Patient has | | 2019 | | CARDIOLOGY [place] Abad, Senior Technologist | questions about | | | | [address] | | monitor. ) | | | | [place] | | | | | | [address] | | | | | | [phone] | | | +--------+ + + + [...] [place] | | | | | | [address] | | | | | | | | +--------+---------+ + + + documented as of this encounter Visit Diagnoses Not on filedocumented in this encounter"
--- OUTSIDE RECORDS SUMMARY | ~2019-10-23 | XMS | Encounter Summary ---
Demographics + + + | Address | [address] | | | [place] [address] | + + + | Home Phone [...] [place] | | | | | [address] | | + + + + + Care Team Providers + +------+ + | Care Box Printer Name | Role | Phone | + +------+ + | Natalee Andersen NP | PCP | | + +------+ + Encounter Details +--------+ + + + + | Date | Type | Department | Care Team | Description | +--------+ + + + + | 06/25/ | Hospital | [facility] | Frandy Teresa, | Acquired | | 2014 | Encounter | MED CTR XRAY [address] | DO [address] | spondylolisthesis | | | | [place] | [address] [place], [place] | | | | | [place] [address] | [address] | | | | | [phone] | | | +--------+ + + + [...] + + + +---------+ + + | Carpenter-3 Fatty | Take 1,000 mg by | [...] [place] | | | | | | [address] | | | | | | | | +--------+---------+ + + + documented as of this encounter Visit Diagnoses + + | Diagnosis | + + | Acquired spondylolisthesis | + + documented in this encounter"
--- OUTSIDE RECORDS SUMMARY | ~2019-10-23 | XMS | Encounter Summary ---
Demographics + + + | Address | [address] | | | [place] [address] | + + + | Home Phone [...] [place] | | | | | [address] | | + + + + + Care Team Providers + +------+ + | Care Malt Liquors Sales Supervisor Name | Role | Phone | [...] + + | 10/04/ | Office | [facility] | Desiree Peterson DO | ROGERS on CPAP (Primary | | 2019 | Visit | CARDIOLOGY [place] | [address] | Dx); Morbid obesity | | | | [address] | [place], [place] | (HCC); Benign | | | | [address] | [id number] | essential HTN; | | | | [place], [place] | | Atrial fibrillation, | | | | [address] | | unspecified type | | | | [phone] | | ([facility]) | +--------+---------+ + + + [...] Peterson DO - 10/04/2019 11:40 AM PST [facility] Cardiology Cardiology Follow Up Note [...] rtake in exercise. She recently got a [employer] and has been walking him more regularly. [...] by mouth daily. Blood Glucose Monitoring Suppl (WintegraIO FLEX SYSTEM) w/Device KIT by Does not ap ply route. budesonide-formoterol (SYMBICORT) 160-4.5 MCG/ACT inhaler Inhale 2 puffs into the lungs 2 (two) times daily. Calcium Carbonate Antacid 1000 MG tablet Take 1,000 mg by mouth 3 (three) times daily. Cholecalciferol (VITAMIN D3) 70609 units CAPS Take by mouth once a [...] | | | | | | [place] | | | | | | [phone] | | | | | | | [...]
--- OUTSIDE RECORDS SUMMARY | ~2019-10-23 | XMS | Encounter Summary ---
Demographics + + + | Address | [address] | | | [place] [address] | + + + | Home Phone [...] [place] | | | | | [address] | | + + + + + Care Team Providers + +------+ + | Care Private Pilot Name | Role | Phone | + [...] | 06/20/ | Telephone | [facility] | Frandy Teresa, | Other (surgery | | 2013 | | NEUROSURGERY [address] | DO [address] | reminder ) | | | | [address] | [address] [place], [place] | | | | | [place], [place] | [address] | | | | | [address] | | | | | | [phone] | | | +--------+ + + + [...] | | | | | [place] | | | | | | [address] | | | | | | | | +--------+---------+ + + + documented as of this encounter Visit Diagnoses Not on filedocumented in this encounter"
--- OUTSIDE RECORDS SUMMARY | ~2019-10-23 | XMS | Encounter Summary ---
Demographics + + + | Address | [address] | | | [place] [address] | + + + | Home Phone [...] [place] | | | | | [address] | | + + + + + Care Team Providers + +------+ + | Care Kennel Hand Name | Role | Phone | [...] + + | 08/24/ | Documentati | [facility] | Katharine Moncada, | Other (urgent | | 2019 | on | CARDIOLOGY [place] | Technologist | report) | | | | [address] | | | | | | [place] | | | | | | [address] | | | | | | [phone] | | | +--------+ + + + [...] [place] | | | | | | [address] | | | | | | | | +--------+---------+ + + + documented as of this encounter Visit Diagnoses Not on filedocumented in this encounter"
--- OUTSIDE RECORDS SUMMARY | ~2019-10-23 | XMS | Encounter Summary ---
Demographics + + + | Address | [address] | | | [place] [address] | + + + | Home Phone [...] [place], [place] | | | | | [address] | | + + + + + Care Team Providers + +------+ + | Care Quality Assurance/R&D Lab Technician Name | Role | Phone | + +------+ + PCP | Unavailable | + +------+ + Encounter Details +--------+ + + + + | Date | Type | Department | Care Team | Description | +--------+ + + + + | 04/16/ | Hospital | [facility] | | | | 1997 | Encounter | MED CTR XRAY [address] | | | | | | [address] | | | | | | [place] [address] | | | | | | [phone] | | | +--------+ + + + [...] | | | | | [place] | | | | | | [address] | | | | | | | | +--------+---------+ + + + documented as of this encounter Visit Diagnoses Not on filedocumented in this encounter"
--- OUTSIDE RECORDS SUMMARY | ~2019-10-23 | XMS | Encounter Summary ---
Demographics + + + | Address | [address] | | | [place] [address] | + + + | Home Phone [...] | Author | [facility] | | | and [...] [place] | | | | | [address] | | + + + + + Care Team Providers + +------+ + | Care Transmission Calibration Engineer Name | Role | Phone | [...] + + | 09/10/ | Documentati | [facility] | Katharine Moncada, | Other (urgent | | 2019 | on | CARDIOLOGY [place] | Technologist | report) | | | | [address] | | | | | | [place] | | | | | | [address] | | | | | | [phone] | | | +--------+ + + + [...] [place] | | | | | | [address] | | | | | | | | +--------+---------+ + + + documented as of this encounter Visit Diagnoses Not on filedocumented in this encounter"
--- OUTSIDE RECORDS SUMMARY | ~2019-10-23 | XMS | Encounter Summary ---
Demographics + + + | Address | [address] | | | [place] [address] | + + + | Home Phone [...] [place] | | | | | [address] | | + + + + + Care Team Providers + +------+ + | Care Recovery Advocate Name | Role | Phone | [...] | 11/25/ | Telephone | [facility] | Frandy Teresa, | Medication Refill | | 2015 | | NEUROSURGERY [address] | DO [address] | Assistance | | | | [address] | [address] [place], [place] | | | | | [place], [place] | [address] | | | | | [address] | | | | | | [phone] | | | +--------+ + + + [...] | | | | | [place] | | | | | | [address] | | | | | | | | +--------+---------+ + + + documented as of this encounter Visit Diagnoses Not on filedocumented in this encounter"
--- OUTSIDE RECORDS SUMMARY | ~2019-10-23 | XMS | Encounter Summary ---
Demographics + + + | Address | [address] | | | [place] [address] | + + + | Home Phone [...] [place] | | | | | [address] | | + + + + + Care Team Providers + +------+ + | Care Geological Engineer Name | Role | Phone | [...] + + | 01/02/ | Telephone | [facility] | Frandy Teresa, | Other (6m x-ray ) | | 2014 | | NEUROSURGERY [address] | DO [address] | | | | | [address] | [address] [place], [place] | | | | | [place], [place] | [phone] | | | | | [address] | | | | | | [phone] | | | +--------+ + + + [...] [place] | | | | | | [address] | | | | | | | | +--------+---------+ + + + documented as of this encounter Visit Diagnoses Not on filedocumented in this encounter"
--- OUTSIDE RECORDS SUMMARY | ~2019-10-23 | XMS | Encounter Summary ---
Demographics + + + | Address | [address] | | | [place] [address] | + + + | Home Phone [...] [place] | | | | | [address] | | + + + + + Care Team Providers + +------+ + | Care Pie Filling Mixer Name | Role | Phone | [...] + + | 09/19/ | Telephone | [facility] | Ashley Chávez | Talia (Patient | | 2019 | | CARDIOLOGY [place] Abad, Tying Machine Operator | calling to be seen | | | | [address] | | ) | | | | [place] | | | | | | [address] | | | | | | [phone] | | | +--------+ + + + [...] [place] | | | | | | [address] | | | | | | | | +--------+---------+ + + + documented as of this encounter Visit Diagnoses Not on filedocumented in this encounter"
--- OUTSIDE RECORDS SUMMARY | ~2019-10-23 | XMS | Encounter Summary ---
Demographics + + + | Address | [address] | | | [place] [address] | + + + | Home Phone [...] [place], [place] | | | | | [address] | | + + + + + Care Team Providers + +------+ + | Care Duty Officer Name | Role | Phone | + +------+ + PCP | Unavailable | + +------+ + Encounter Details +--------+ + + + + | Date | Type | Department | Care Team | Description | +--------+ + + + + | 03/13/ | Hospital | [facility] | | | | 1996 - | Encounter | MED CTR GENERIC OP | | | | | | CONV DEPT [address] | | | | 03/21/ | | [place], | | | | 1996 | | [place] [address] | | | | | | [phone] | | | +--------+ + + + [...] [place] | | | | | | [address] | | | | | | | | +--------+---------+ + + + documented as of this encounter Visit Diagnoses Not on filedocumented in this encounter"
--- OUTSIDE RECORDS SUMMARY | ~2019-10-23 | XMS | Encounter Summary ---
Demographics + + + | Address | [address] | | | [place] [address] | + + + | Home Phone [...] [place], [place] | | | | | [address] | | + + + + + Care Team Providers + +------+ + | Care Java J2Ee Software Engineer Name | Role | Phone | + +------+ + PCP | Unavailable | + +------+ + Encounter Details +--------+ + + + + | Date | Type | Department | Care Team | Description | +--------+ + + + + | 12/27/ | Hospital | [facility] | | | | 1995 | Encounter | MED CTR LABORATORY | | | | | | [address] | | | | | | [place] | | | | | | [address] | | | | | | [phone] | | | +--------+ + + + [...] | | | | | [place] | | | | | | [address] | | | | | | | | +--------+---------+ + + + documented as of this encounter Visit Diagnoses Not on filedocumented in this encounter"
--- OUTSIDE RECORDS SUMMARY | ~2019-10-23 | XMS | Encounter Summary ---
Demographics + + + | Address | [address] | | | [place] [address] | + + + | Home Phone [...] [place] | | | | | [address] | | + + + + + Care Team Providers + +------+ + | Care Patent Examiner Name | Role | Phone | [...] + + | 04/05/ | Telephone | [facility] [place] | [employer], | Results | | 2012 | | GASTROENTEROLOGY | [address] | | | | | [address] | [place], [address] | | | | | [address] [place], [place] | [place], [place] | | | | | [address] | [address] | | | | | [phone] | | | +--------+ + + + [...] [place] | | | | | | [address] | | | | | | | | +--------+---------+ + + + documented as of this encounter Visit Diagnoses Not on filedocumented in this encounter"
--- OUTSIDE RECORDS SUMMARY | ~2019-10-23 | XMS | Encounter Summary ---
Demographics + + + | Address | [address] | | | [place] [address] | + + + | Home Phone [...] [place] | | | | | [address] | | + + + + + Care Team Providers + +------+ + | Care Facilities Engineer Name | Role | Phone | [...] + | 07/15/ | Telephone | [facility] | Russell Alfaro PA | Other | | 2016 | | SLEEP DISORDER [address] | [address] | | | | | [address] [place] | [place] [facility] [place] | | | | | [place] [address] | [address] | | | | | [phone] | | | +--------+ + + + [...] [place] | | | | | | [address] | | | | | | | | +--------+---------+ + + + documented as of this encounter Visit Diagnoses Not on filedocumented in this encounter"
--- OUTSIDE RECORDS SUMMARY | ~2019-10-23 | XMS | Encounter Summary ---
Demographics + + + | Address | [address] | | | [place] [address] | + + + | Home Phone [...] [place], [place] | | | | | [address] | | + + + + + Care Team Providers + +------+ + | Care Harbor Department Manager Name | Role | Phone [...] | | | | 1999 | | [place] [address] | | | | | | [phone] | | | +--------+ + + + [...] [place] | | | | | | [address] | | | | | | | | +--------+---------+ + + + documented as of this encounter Visit Diagnoses Not on filedocumented in this encounter"
--- OUTSIDE RECORDS SUMMARY | ~2019-10-23 | XMS | Encounter Summary ---
Demographics + + + | Address | [address] | | | [place] [address] | + + + | Home Phone [...] [place] | | | | | [address] | | + + + + + Care Team Providers + +------+ + | Care Medical Administrative Specialist Name | Role | Phone | [...] + + | 02/26/ | Emergency | [facility] | [place], | CVA (cerebral | | 2015 | | MED CTR EMERGENCY | Davey Simons MD [address] | vascular accident) | | | | CENTER [address] | [address] [facility] | ([facility]) (Primary Dx) | | | | [place], [place] | [place] [address] | | | | | [address] | [phone] | | | | | [phone] | | | +--------+ + + + [...] | | | | | [place] | | | | | | [address] | | | | | | | [...] mL/min/1.73m2 | [facility] | | | [facility] | RATE,ESTIMATED | | MEDICAL | | | | mL/min/1.44q2Icho than | | CENTER - | | [...] | 9.1 | 8.3 - 10.5 | [facility] | | | | | [...] [address] | [place] | [phone] | | [facility] | | [address] | | | - LABORATORY | | [...] [address] | [place] | [phone] | | [facility] | | [address] | | | - LABORATORY | | [...] droop 02/26/2015 08:15 [facility] | | | [facility] 02/19/2015 | | | 10:15 [facility] | [...] as uncontrolled 02/17/2015 | | | 08:22 [facility] Emergency | | | -Long-term [...] and uterus 02/14/2015 | | | 09:56 [facility] Emergency | | | -Disturbance [...] status 02/06/2015 10:46 | | | [facility] | | | -Generalized [...] residual deficits | | | 02/01/2015 21:38 [facility] | | | Emergency 01/22/2015 14:00 [facility] | | | Urgent Care [...] intervertebral disc | | | 01/16/2015 12:15 [facility] | | | Urgent Care [...] other | | | medications 01/07/2015 11:45 [facility] | | | Urgent Care [...] acquired hypothyroidism 12/30/2014 | | | 17:54 [facility] Emergency | | | -Obstructive [...] essential hypertension | | | 12/30/2014 14:30 [facility] | | | Urgent Care [...] | | -Cramp of limb 11/29/2014 16:15 [facility] | | | Urgent Care [...] ------ | | | --------- [address] | | | [facility] [address] | | | [facility] 7 0 Total | | | Note: Visits indicate total known visits. Medicaid [place] Dx are the | | | number of primary diagnoses on the [facility]'s non-emergent dx list. | [...]
--- OUTSIDE RECORDS SUMMARY | ~2019-10-23 | XMS | Encounter Summary ---
Demographics + + + | Address | [address] | | | [place] [address] | + + + | Home Phone [...] [place] | | | | | [address] | | + + + + + Care Team Providers + +------+ + | Care Theology Teacher Name | Role | Phone | + +------+ + | Basim Bolanos MD | PCP | | + +------+ + Encounter Details +--------+ + + + + | Date | Type | Department | Care Team | Description | +--------+ + + + + | 02/22/ | Abstract | [facility] [place] | [facility], | | | 2012 | | GASTROENTEROLOGY | [address] | | | | | [address] | [place] | | | | | [address] [place], [place] | [place], [place] | | | | | [address] | [address] | | | | | [phone] | | | +--------+ + + + [...] [place] | | | | | | [address] | | | | | | | | +--------+---------+ + + + documented as of this encounter Visit Diagnoses Not on filedocumented in this encounter"
--- OUTSIDE RECORDS SUMMARY | ~2019-10-23 | XMS | Encounter Summary ---
Demographics + + + | Address | [address] | | | [place] [address] | + + + | Home Phone [...] [place] | | | | | [address] | | + + + + + Care Team Providers + +------+ + | Care Screen Tacker Name | Role | Phone | + [...] + + | 08/21/ | Documentati | [facility] | Katharine Moncada, | Other (urgent | | 2019 | on | CARDIOLOGY [place] | Technologist | report) | | | | [address] | | | | | | [place] | | | | | | [address] | | | | | | [phone] | | | +--------+ + + + [...] [place] | | | | | | [address] | | | | | | | | +--------+---------+ + + + documented as of this encounter Visit Diagnoses Not on filedocumented in this encounter"
--- OUTSIDE RECORDS SUMMARY | ~2019-10-23 | XMS | Encounter Summary ---
Demographics + + + | Address | [address] | | | [place] [address] | + + + | Home Phone [...] [place] | | | | | [address] | | + + + + + Care Team Providers + +------+ + | Care Personal Injury Specialist Name | Role | Phone | [...] | | | spondylolist | | [address] | | | | | hesis | | [place], | | | | | Spinal | | [place] [address] | | | | | stenosis, | | Phone: | | | | | lumbar | | [phone] | | | | | region, | | Fax: | | | | | without | | [phone] | | | | | neurogenic | [...] | | | | | [address] | [address] [place] | | | | | [place] | [phone] | | | | | [address] | | | | | | [phone] | | | +--------+ + + + [...] Easy mask AW. DL times one with [facility] [place] [place] 3 easy view | | | 2 | Intubation | | | | 2 | | | | | 6 | | | +----+---+ + + | | 1 | AN Bite | | | | 2 | Block | | | | 2 | | | | | 7 | | | +----+---+ + + | | 1 | Winn | | | | 2 | 43-degrees | | | | 3 | | | | | 1 | | | +----+---+ + + | | 1 | Winn off | | | | 4 | [...] | | | | | [place], [place] | | | | | | [phone] | | | | | | | [...]
--- OUTSIDE RECORDS SUMMARY | ~2019-10-23 | XMS | Encounter Summary ---
Demographics + + + | Address | [address] | | | [place] [address] | + + + | Home Phone [...] [place], [place] | | | | | [address] | | + + + + + Care Team Providers + +------+ + | Care Commissioning Specialist Name | Role | Phone | + +------+ + PCP | Unavailable | + +------+ + Encounter Details +--------+ + + + + | Date | Type | Department | Care Team | Description | +--------+ + + + + | 09/23/ | Hospital | [facility] | | | | 1994 | Encounter | MED CTR LABORATORY | | | | | | [address] | | | | | | [place] | | | | | | [address] | | | | | | [phone] | | | +--------+ + + + [...] | | | | | [place] | | | | | | [address] | | | | | | | | +--------+---------+ + + + documented as of this encounter Visit Diagnoses Not on filedocumented in this encounter"
--- OUTSIDE RECORDS SUMMARY | ~2019-10-23 | XMS | Encounter Summary ---
Demographics + + + | Address | [address] | | | [place] [address] | + + + | Home Phone [...] [place], [place] | | | | | [address] | | + + + + + Care Team Providers + +------+ + | Care Waist Pleater Name | Role | Phone | + +------+ + PCP | Unavailable | + +------+ + Encounter Details +--------+ + + + + | Date | Type | Department | Care Team | Description | +--------+ + + + + | 09/24/ | Hospital | [facility] | | | | 1993 | Encounter | MED CTR LABORATORY | | | | | | [address] | | | | | | [place] | | | | | | [address] | | | | | | [phone] | | | +--------+ + + + [...] | | | | | [place] | | | | | | [address] | | | | | | | | +--------+---------+ + + + documented as of this encounter Visit Diagnoses Not on filedocumented in this encounter"
--- OUTSIDE RECORDS SUMMARY | ~2019-10-23 | XMS | Encounter Summary ---
Demographics + + + | Address | [address] | | | [place] [address] | + + + | Home Phone [...] [place] | | | | | [address] | | + + + + + Care Team Providers + +------+ + | Care Integrity Consultant Name | Role | Phone | [...] + | 06/12/ | Office | [facility] | Chris Nicole, | Spondylisthesis | | 2013 | Visit | NEUROSURGERY [address] | PA-C [address] | (Primary Dx); | | | | [address] | [place], [place] | Radiculopathy of | | | | [place], [place] | [address] | leg; Lumbar spine | | | | [address] | | instability; Lumbar | | | | [phone] | | spondylosis; | | | | [...] rom the original. ZANE Castillo [address] [facility] [facility] [address] [place] [address] FAX: NEUROSURGERY HISTORY AND PHYSICAL [...] Take 15 mg by mouth nightl y. [place]-3 Fatty Acids (FISH OIL CONCENTRATE) 1000 MG [...] has no apparent deficits with short or nursing home memory. CRANIAL NERVES: II: Acuity is [...] 5 5 Ulnar Intrinsics 5 5 Data Entry Analyst Strength 5 5 Hip Flexion 5 [...] [place] | | | | | | [address] | | | | | | | [...]
--- OUTSIDE RECORDS SUMMARY | ~2019-10-23 | XMS | Encounter Summary ---
Demographics + + + | Address | [address] | | | [place] [address] | + + + | Home Phone [...] [place] | | | | | [address] | | + + + + + Care Team Providers + +------+ + | Care Classroom Technology Coach Name | Role | Phone | [...] + + | 07/24/ | Telephone | [facility] | Ashley Chávez | Other (Patient is | | 2019 | | CARDIOLOGY [place] Abad, Sand Conditioner | worried about paying | | | | [address] | | for monitor. ) | | | | [place] | | | | | | [address] | | | | | | [phone] | | | +--------+ + + + [...] [place] | | | | | | [address] | | | | | | | | +--------+---------+ + + + documented as of this encounter Visit Diagnoses Not on filedocumented in this encounter"
--- OUTSIDE RECORDS SUMMARY | ~2019-10-23 | XMS | Encounter Summary ---
Demographics + + + | Address | [address] | | | [place] [address] | + + + | Home Phone [...] [place] | | | | | [address] | | + + + + + Care Team Providers + +------+ + | Care Suit Attendant Name | Role | Phone | [...] + + | 09/10/ | Documentati | [facility] | Katharine Moncada, | Other (urgent | | 2019 | on | CARDIOLOGY [place] | Technologist | report) | | | | [address] | | | | | | [place] | | | | | | [address] | | | | | | [phone] | | | +--------+ + + + [...] [place] | | | | | | [address] | | | | | | | | +--------+---------+ + + + documented as of this encounter Visit Diagnoses Not on filedocumented in this encounter"
--- OUTSIDE RECORDS SUMMARY | ~2019-10-23 | XMS | Encounter Summary ---
Demographics + + + | Address | [address] | | | [place] [address] | + + + | Home Phone [...] [place] | | | | | [address] | | + + + + + Care Team Providers + +------+ + | Care Numerical Control Machine Machinist Name | Role | Phone | [...] [place] | | | | | | [address] | | | | | | [phone] | | | +--------+ + + + [...] [place] | | | | | | [address] | | | | | | | | +--------+---------+ + + + documented as of this encounter Visit Diagnoses Not on filedocumented in this encounter"
--- OUTSIDE RECORDS SUMMARY | ~2019-10-23 | XMS | Encounter Summary ---
Demographics + + + | Address | [address] | | | [place] [address] | + + + | Home Phone [...] [place], [place] | | | | | [address] | | + + + + + Care Team Providers + +------+ + | Care Expressive Music Therapist Name | Role | Phone | + +------+ + PCP | Unavailable | + +------+ + Encounter Details +--------+ + + + + | Date | Type | Department | Care Team | Description | +--------+ + + + + | 07/17/ | Hospital | [facility] | | | | 1997 | Encounter | MED CTR EMERGENCY | | | | | | [address] | | | | | | [place] | | | | | | [address] | | | | | | [phone] | | | +--------+ + + + [...] | | | | | [place] | | | | | | [address] | | | | | | | | +--------+---------+ + + + documented as of this encounter Visit Diagnoses Not on filedocumented in this encounter"
--- OUTSIDE RECORDS SUMMARY | ~2019-10-23 | XMS | Encounter Summary ---
Demographics + + + | Address | [address] | | | [place] [address] | + + + | Home Phone [...] [place], [place] | | | | | [address] | | + + + + + Care Team Providers + +------+ + | Care Accelerator Operator Name | Role | Phone | + +------+ + PCP | Unavailable | + +------+ + Encounter Details +--------+ + + + + | Date | Type | Department | Care Team | Description | +--------+ + + + + | 05/25/ | Hospital | [facility] | | | | 1991 | Encounter | MED CTR LABORATORY | | | | | | [address] | | | | | | [place] | | | | | | [address] | | | | | | [phone] | | | +--------+ + + + [...] | | | | [place] | | | | | | [address] | | | | | | | | +--------+---------+ + + + documented as of this encounter Visit Diagnoses Not on filedocumented in this encounter"
--- OUTSIDE RECORDS SUMMARY | ~2019-10-23 | XMS | Encounter Summary ---
Demographics + + + | Address | [address] | | | [place] [address] | + + + | Home Phone [...] Author | [facility] | + + + | Organization | [facility] | + + + | Address | Unknown | + + + | Phone | Unavailable | + + + Support + + + + + | Name | Relationship | Address | Phone | + + + + + | Kelsy Bautista | E[address] | [address] | | | | | [place] | | | | | [address] | | + + + + + Care Team Providers + +------+ + | Care Hull Inspector Name | Role | Phone | [...] [id number] | | | | | | [place], [place] | | | | | | [address] | | | | | | [phone] | | | +--------+ + + + [...] [facility] | [address] | [place] [address] | | | PATHOLOGY | [address] [...] Re | | | | | | [address] | | | | + + + + + + + + | Specimen | + + | | + + + + + + + | Performing | Address | City/State/Zipcode | Phone Number | | Organization | | | | + + + + + | [facility] | [address] | [place] [address] | | | PATHOLOGY | [address] [...] Re | | | | | | [phone] | | | | + + + + + + + + | Specimen | + + | | + + + + + + + | Performing | Address | City/State/Zipcode | Phone Number | | Organization | | | | + + + + + | [facility] | [address] | [place] [address] | | | PATHOLOGY | [address] [...] Re | | | | | | [address] | | | | + + + + + + + + | Specimen | + + | | + + + + + + + | Performing | Address | City/State/Zipcode | Phone Number | | Organization | | | | + + + + + | [facility] | [address] | [place] [address] | | | PATHOLOGY | [address] [...] Re | | | | | | [address] | | | | + + + + + + + + | Specimen | + + | | + + + + + + + | Performing | Address | City/State/Zipcode | Phone Number | | Organization | | | | + + + + + | [facility] | [address] | [place] [address] | | | PATHOLOGY | [address] | | | + + + + + documented in this encounter Visit Diagnoses Not on filedocumented in this encounter"
--- OUTSIDE RECORDS SUMMARY | ~2019-10-23 | XMS | Encounter Summary ---
Demographics + + + | Address | [address] | | | [place] [address] | + + + | Home Phone [...] [place] | | | | | [address] | | + + + + + Care Team Providers + +------+ + | Care Casino Dealer Name | Role | Phone | + [...] + + | 04/30/ | Office | [facility] | Russell Alfaro PA | ROGERS on CPAP (Primary | | 2015 | Visit | SLEEP DISORDER 401 | [address] | Dx) | | | | [address] [place] | [place] | | | | | [place] [address] | [address] | | | | | [phone] | | | +--------+---------+ + + + [...] Insomnia Severity Index Insomnia Severity Index 13 [place] Sleepiness Scale Sitting and reading 3 Watching [...] nasal obtained from: [facility] pressure: 11-20 cm Median: 12.1 cm 95%: [...] appro priate paperwork. Thirty minutes were spent [id number], with the majority of time spent i [...] | | | | | [place], [place] | | | | | | [address] | | | | | | | | +--------+---------+ + + + documented as of this encounter Visit Diagnoses + + | Diagnosis | + + | ROGERS on CPAP - Primary Obstructive sleep apnea (adult) (pediatric) | + + documented in this encounter"
--- OUTSIDE RECORDS SUMMARY | ~2019-10-23 | XMS | Encounter Summary ---
Demographics + + + | Address | [address] | | | [place] [address] | + + + | Home Phone [...] [place] | | | | | [address] | | + + + + + Care Team Providers + +------+ + | Care Magnetic Resonance Imaging Director Name | Role | Phone | [...] Closed | | Radiology | Diagnoses | [place], | | | | | | Thoracic or | Natalee L, | | | | | | lumbosacral | [employer] [address] | | | | | | neuritis or | [address] [place] | | | | | | | [address] | | | | | | radiculitis, | [place], | | | | | | unspecified | [place] [address] | | | | | | | Phone: | | | | | | Degeneration | [phone] | | | | | | of lumbar | Fax: | | | | | | or | [phone] | | | | | | lumbosacral [...] + + | 03/11/ | Hospital | [facility] | Natalee Andersen | Thoracic or | | 2013 | Encounter | MED CTR MRI [address] | L, [employer] [address] | lumbosacral neuritis | | | | [place], | [address] [place] [address] | or radiculitis, | | | | [place] [address] | [place] [address] | unspecified; | | | | [phone] | [phone] | Degeneration of | | | | [...] + + + +---------+ + + | Cahone-3 Fatty | Take 1,000 mg by | [...] | | | | | | [facility] | | | | | | [address] | | | | | | | [...] + | MISCELLANEOUS LAB | | | [phone] | + +---------+ + + | MISCELANIOUS LAB | | | [phone] | + +---------+ + + documented in this encounter Visit Diagnoses + + | Diagnosis | + + | Thoracic or lumbosacral neuritis or radiculitis, unspecified | + + | Degeneration of lumbar or lumbosacral intervertebral disc | + + documented in this encounter"
--- OUTSIDE RECORDS SUMMARY | ~2019-10-23 | XMS | Encounter Summary ---
Demographics + + + | Address | [address] | | | [place] [address] | + + + | Home Phone [...] [place], [place] | | | | | [address] | | + + + + + Care Team Providers + +------+ + | Care Dietary Supervisor Name | Role | Phone | + +------+ + PCP | Unavailable | + +------+ + Encounter Details +--------+ + + + + | Date | Type | Department | Care Team | Description | +--------+ + + + + | [facility] | Deon Gonzales | | | 2005 | Encounter | MED CTR SLEEP | MD Laureano [address] | | | | | [place] [address] | [place] | | | | | [place], [place] | [place] [address] | | | | | [address] | [phone] | | | | | [phone] | | | +--------+ + + + [...] [place] | | | | | | [address] | | | | | | | | +--------+---------+ + + + documented as of this encounter Visit Diagnoses Not on filedocumented in this encounter"
--- OUTSIDE RECORDS SUMMARY | ~2019-10-23 | XMS | Encounter Summary ---
Demographics + + + | Address | [address] | | | [place] [address] | + + + | Home Phone [...] [place], [place] | | | | | [address] | | + + + + + Care Team Providers + +------+ + | Care Hand Coke Drawer Name | Role | Phone | + +------+ + PCP | Unavailable | + +------+ + Encounter Details +--------+ + + + + | Date | Type | Department | Care Team | Description | +--------+ + + + + | 05/29/ | Hospital | [facility] | | | | 1991 | Encounter | MED CTR LABORATORY | | | | | | [address] | | | | | | [place] | | | | | | [address] | | | | | | [phone] | | | +--------+ + + + [...] | | | | | [place] | | | | | | [address] | | | | | | | | +--------+---------+ + + + documented as of this encounter Visit Diagnoses Not on filedocumented in this encounter"
--- OUTSIDE RECORDS SUMMARY | ~2019-10-23 | XMS | Encounter Summary ---
Demographics + + + | Address | [address] | | | [place] [address] | + + + | Home Phone [...] [place] | | | | | [address] | | + + + + + Care Team Providers + +------+ + | Care Freight Weigher Name | Role | Phone | [...] + | 02/21/ | Refill | [facility] | Deon Gonzales | Medication Refill | | 2012 | | SLEEP DISORDER [address] | MD Laureano [address] | | | | | [address] [place] | [address] [place] | | | | | [place] [address] | [place] [address] | | | | | [phone] | [phone] | | | | | | | [...] [place] | | | | | | [address] | | | | | | | | +--------+---------+ + + + documented as of this encounter Visit Diagnoses + + | Diagnosis | + + | Obstructive sleep apnea (adult) (pediatric) - Primary | + + documented in this encounter"
--- OUTSIDE RECORDS SUMMARY | ~2019-10-23 | XMS | Encounter Summary ---
Demographics + + + | Address | [address] | | | [place] [address] | + + + | Home Phone [...] [place], [place] | | | | | [address] | | + + + + + Care Team Providers + +------+ + | Care Nematology Teacher Name | Role | Phone | + +------+ + PCP | Unavailable | + +------+ + Encounter Details +--------+ + + + + | Date | Type | Department | Care Team | Description | +--------+ + + + + | 12/27/ | Hospital | [facility] | | | | 1997 | Encounter | MED CTR EMERGENCY | | | | | | [address] | | | | | | [place] | | | | | | [address] | | | | | | [phone] | | | +--------+ + + + [...] | | | | | [place] | | | | | | [address] | | | | | | | | +--------+---------+ + + + documented as of this encounter Visit Diagnoses Not on filedocumented in this encounter"
--- OUTSIDE RECORDS SUMMARY | ~2019-10-23 | XMS | Encounter Summary ---
Demographics + + + | Address | [address] | | | [place] [address] | + + + | Home Phone [...] [place], [place] | | | | | [address] | | + + + + + Care Team Providers + +------+ + | Care Rn Camp Name | Role | Phone | + [...] | | | 1997 | | [place] [address] | | | | | | [phone] | | | +--------+ + + + [...] [place] | | | | | | [address] | | | | | | | | +--------+---------+ + + + documented as of this encounter Visit Diagnoses Not on filedocumented in this encounter"
--- OUTSIDE RECORDS SUMMARY | ~2019-10-23 | XMS | Encounter Summary ---
Demographics + + + | Address | [address] | | | [place] [address] | + + + | Home Phone [...] [place], [place] | | | | | [address] | | + + + + + Care Team Providers + +------+ + | Care Balance Assembler Name | Role | Phone | + +------+ + PCP | Unavailable | + +------+ + Encounter Details +--------+ + + + + | Date | Type | Department | Care Team | Description | +--------+ + + + + | 04/01/ | Hospital | [facility] | | | | 1998 | Encounter | MED CTR XRAY [address] | | | | | | [address] | | | | | | [place] [address] | | | | | | [phone] | | | +--------+ + + + [...] | | | | | [place] | | | | | | [address] | | | | | | | | +--------+---------+ + + + documented as of this encounter Visit Diagnoses Not on filedocumented in this encounter"
--- OUTSIDE RECORDS SUMMARY | ~2019-10-23 | XMS | Encounter Summary ---
Demographics + + + | Address | [address] | | | [place] [address] | + + + | Home Phone [...] [place], [place] | | | | | [address] | | + + + + + Care Team Providers + +------+ + | Care Lead Ingot Molder Name | Role | Phone | + +------+ + PCP | Unavailable | + +------+ + Encounter Details +--------+ + + + + | Date | Type | Department | Care Team | Description | +--------+ + + + + | 12/24/ | Hospital | [facility] | | | | 1998 | Encounter | MED CTR XRAY [address] | | | | | | [address] | | | | | | [place] [address] | | | | | | [phone] | | | +--------+ + + + [...] | | | | [place] | | | | | | [address] | | | | | | | | +--------+---------+ + + + documented as of this encounter Visit Diagnoses Not on filedocumented in this encounter"
--- OUTSIDE RECORDS SUMMARY | ~2019-10-23 | XMS | Encounter Summary ---
Demographics + + + | Address | [address] | | | [place] [address] | + + + | Home Phone [...] [place], [place] | | | | | [address] | | + + + + + Care Team Providers + +------+ + | Care Locomotive Electrician Name | Role | Phone | + +------+ + PCP | Unavailable | + +------+ + Encounter Details +--------+ + + + + | Date | Type | Department | Care Team | Description | +--------+ + + + + | 03/11/ | [facility] | [facility] | Deon Gonzales | | | 2005 | Encounter | MED CTR SLEEP | MD Laureano [address] | | | | | [place] [address] | [place] | | | | | [place], [place] | [place] [address] | | | | | [address] | [phone] | | | | | [phone] | | | +--------+ + + + [...] [place] | | | | | | [address] | | | | | | | | +--------+---------+ + + + documented as of this encounter Visit Diagnoses Not on filedocumented in this encounter"
--- OUTSIDE RECORDS SUMMARY | ~2019-10-23 | XMS | Encounter Summary ---
Demographics + + + | Address | [address] | | | [place] [address] | + + + | Home Phone [...] [place] | | | | | [address] | | + + + + + Care Team Providers + +------+ + | Care Sink Cutter Name | Role | Phone | [...] [place] | | | | | | [address] | | | | | | [phone] | | | +--------+ + + + [...] [place] | | | | | | [address] | | | | | | | | +--------+---------+ + + + documented as of this encounter Visit Diagnoses Not on filedocumented in this encounter"
--- OUTSIDE RECORDS SUMMARY | ~2019-10-23 | XMS | Encounter Summary ---
Demographics + + + | Address | [address] | | | [place] [address] | + + + | Home Phone [...] [place], [place] | | | | | [address] | | + + + + + Care Team Providers + +------+ + | Care Weaving Instructor Name | Role | Phone | + +------+ + PCP | Unavailable | + +------+ + Encounter Details +--------+ + + + + | Date | Type | Department | Care Team | Description | +--------+ + + + + | 05/29/ | Hospital | [facility] | | | | 1991 | Encounter | MED CTR LABORATORY | | | | | | [address] | | | | | | [place] | | | | | | [address] | | | | | | [phone] | | | +--------+ + + + [...] | | | | | [place] | | | | | | [address] | | | | | | | | +--------+---------+ + + + documented as of this encounter Visit Diagnoses Not on filedocumented in this encounter"
--- OUTSIDE RECORDS SUMMARY | ~2019-10-23 | XMS | Encounter Summary ---
Demographics + + + | Address | [address] | | | [place] [address] | + + + | Home Phone [...] [place], [place] | | | | | [address] | | + + + + + Care Team Providers + +------+ + | Care Metal Inspector Name | Role | Phone | + +------+ + PCP | Unavailable | + +------+ + Encounter Details +--------+ + + + + | Date | Type | Department | Care Team | Description | +--------+ + + + + | 02/02/ | Hospital | [facility] | | | | 1997 - | Encounter | MED CTR GENERIC PSY | | | | | | CONV DEPT [address] | | | | 02/05/ | | [address], | | | | 1997 | | [place] [address] | | | | | | [phone] | | | +--------+ + + + [...] [place] | | | | | | [address] | | | | | | | | +--------+---------+ + + + documented as of this encounter Visit Diagnoses Not on filedocumented in this encounter"
--- OUTSIDE RECORDS SUMMARY | ~2019-10-23 | XMS | Encounter Summary ---
Demographics + + + | Address | [address] | | | [place] [address] | + + + | Home Phone [...] [place], [place] | | | | | [address] | | + + + + + Care Team Providers + +------+ + | Care Water Safety Teacher Name | Role | Phone | + +------+ + PCP | Unavailable | + +------+ + Encounter Details +--------+ + + + + | Date | Type | Department | Care Team | Description | +--------+ + + + + | 01/16/ | Hospital | [facility] | | | | 2002 | Encounter | MED CTR XRAY [address] | | | | | | [address] | | | | | | [place] [address] | | | | | | [phone] | | | +--------+ + + + [...] | | | | [place] | | | | | | [address] | | | | | | | | +--------+---------+ + + + documented as of this encounter Visit Diagnoses Not on filedocumented in this encounter"
--- OUTSIDE RECORDS SUMMARY | ~2019-10-23 | XMS | Encounter Summary ---
Demographics + + + | Address | [address] | | | [place] [address] | + + + | Home Phone [...] [place] | | | | | [address] | | + + + + + Care Team Providers + +------+ + | Care Electrical Drafter Name | Role | Phone | [...] | | | | | | | [address] | | | | | | | Phone: | | | | | | | [phone] | | | | | | | Fax: | | | | | | | [phone] | | +--------+--------+ + + + + Encounter Details +--------+---------+ + + + | Date | Type | Department | Care Team | Description | +--------+---------+ + + + | 02/27/ | Office | [facility] | Baudilio Newman | Neuropathy (Primary | | 2015 | Visit | NEUROLOGY LAURIE | MD Pollo Need updated | Dx); Sleep apnea; | | | | [address], | address | Stroke (HCC); | | | | [address] [place] | | Thyroid disease | | | | [place] [address] | | | | | | [phone] | | | +--------+---------+ + + + [...] supply of blood, brain tissue quickly dies. 4161-7[address] [employer]. [address] [place] [address], [place] [address]. All righ ts reserved. This information is not intended as a substitute for professional medical care. Always follow your healthcare professional's instructions. documented in this encounter Progress Notes Baudilio Newman MD - 02/27/2015 10:31 AM PDTFormatting of this note might be differen t from the original. Baudilio Newman MD [address] [place] [address] Neurology Outpatient New Patient Note Referring Provider: [...] history. Notes from her recent hospitalization at [facility] were reviewed in detail. Ms. Arndt started feeling off in the evening of 02/01. She felt dizzy and laid down to slee p. Upon waking, she felt her right side was numb. She tried to get up to go to the bathroom and realized she was weak as well on the right. She was taken to [facility] where she was diagnosed with a [...] systol ically. She was reevaluated in the [facility] ED for one such event [...] hospitalization . This specimen was characterized at [facility], but the report is not currently available for [facility]. Unfortunately, Ms. Arndt notes that her right [...] DO; Location: [facility] MAIN OR Current Medications: Outpatient Medications [...] tablet Take 15 mg by mouth nightly. Casper-3 Fatty Acids (FISH OIL CONCENTRATE) 1000 MG [...] BMI 46.04 kg /m2 Neck Circumference: 14" [place] Sleepiness Scale: 2 General: well developed and [...] Romberg test negative Radiographic Review: CTA from [facility] reviewed on [facility]. No significant stenoses seen [...] No results found for this basename: hba1c, iiz3xex, ldl, ldldirect, ldlext, dldlex Lab Results Component [...] | | | | | [place], [place] | | | | | | [id number] | | | | | | | [...]
--- OUTSIDE RECORDS SUMMARY | ~2019-10-23 | XMS | Encounter Summary ---
Demographics + + + | Address | [address] | | | [place] [address] | + + + | Home Phone [...] [place] | | | | | [address] | | + + + + + Care Team Providers + +------+ + | Care Oral And Maxillofacial Surgeon Name | Role | Phone | [...] [place] | | | | | | [address] | | | | | | [phone] | | | +--------+ + + + [...] [place] | | | | | | [address] | | | | | | | | +--------+---------+ + + + documented as of this encounter Visit Diagnoses Not on filedocumented in this encounter"
--- OUTSIDE RECORDS SUMMARY | ~2019-10-23 | XMS | Encounter Summary ---
Demographics + + + | Address | [address] | | | [place] [address] | + + + | Home Phone [...] [place], [place] | | | | | [address] | | + + + + + Care Team Providers + +------+ + | Care Recycle Worker Name | Role | Phone | + +------+ + PCP | Unavailable | + +------+ + Encounter Details +--------+ + + + + | Date | Type | Department | Care Team | Description | +--------+ + + + + | 04/16/ | [facility] | [facility] | Deon Gonzales | | | 2005 | Encounter | MED CTR SLEEP | MD Laureano [address] | | | | | [place] [address] | [place] | | | | | [place], [place] | [place] [address] | | | | | [address] | [phone] | | | | | [phone] | | | +--------+ + + + [...] [place] | | | | | | [address] | | | | | | | | +--------+---------+ + + + documented as of this encounter Visit Diagnoses Not on filedocumented in this encounter"
--- OUTSIDE RECORDS SUMMARY | ~2019-10-23 | XMS | Encounter Summary ---
Demographics + + + | Address | [address] | | | [place] [address] | + + + | Home Phone [...] [place] | | | | | [address] | | + + + + + Care Team Providers + +------+ + | Care Life Skills Trainer Name | Role | Phone | [...] | | | | | | [place], | | | | | | [place] [address] | | | | | | [phone] | | | +--------+ + + + [...]
--- OUTSIDE RECORDS SUMMARY | ~2019-10-23 | XMS | Encounter Summary ---
Demographics + + + | Address | [address] | | | [place] [address] | + + + | Home Phone [...] [place] | | | | | [address] | | + + + + + Care Team Providers + +------+ + | Care Business Management Consultant Name | Role | Phone [...] + + | 03/26/ | Telephone | [facility] | Thierry Fry | Medication Prior | | 2015 | | MEDICINE [facility] | MD Lisa [address] | Authorization | | | | [facility] | [facility] | (Dexilant 60Mg) | | | | [place] [address] | [address] | | | | | [phone] | | | +--------+ + + + [...] [place] | | | | | | [address] | | | | | | | | +--------+---------+ + + + documented as of this encounter Visit Diagnoses Not on filedocumented in this encounter"
--- OUTSIDE RECORDS SUMMARY | ~2019-10-23 | XMS | Encounter Summary ---
Demographics + + + | Address | [address] | | | [place] [address] | + + + | Home Phone [...] [place] | | | | | [address] | | + + + + + Care Team Providers + +------+ + | Care Assistant Womens Volleyball Coach Name | Role | Phone | + +------+ + PCP | Unavailable | + +------+ + Encounter Details +--------+ + + + + | Date | Type | Department | Care Team | Description | +--------+ + + + + | 04/27/ | Hospital | [facility] | Sage Garza MD | | | 2001 | Encounter | HOSPITAL EMERGENCY | | | | | | CENTER [address] | | | | | [address] [place], [place] | | | | | | [address] | | | | | | [phone] | | | +--------+ + + + [...] [place] | | | | | | [address] | | | | | | | | +--------+---------+ + + + documented as of this encounter Visit Diagnoses Not on filedocumented in this encounter"
--- OUTSIDE RECORDS SUMMARY | ~2019-10-23 | XMS | Encounter Summary ---
Demographics + + + | Address | [address] | | | [place] [address] | + + + | Home Phone [...] [place] | | | | | [address] | | + + + + + Care Team Providers + +------+ + | Care Music Publisher Name | Role | Phone | + [...] + | 08/16/ | Documentati | [facility] | Katharine Moncada, | Other (urgent | | 2019 | on | CARDIOLOGY [place] | Technologist | report) | | | | [address] | | | | | | [place] | | | | | | [address] | | | | | | [phone] | | | +--------+ + + + [...] [place] | | | | | | [address] | | | | | | | | +--------+---------+ + + + documented as of this encounter Visit Diagnoses Not on filedocumented in this encounter"
--- OUTSIDE RECORDS SUMMARY | ~2019-10-23 | XMS | Encounter Summary ---
Demographics + + + | Address | [address] | | | [place] [address] | + + + | Home Phone [...] [place] | | | | | [address] | | + + + + + Care Team Providers + +------+ + | Care Pile Driving Superintendent Name | Role | Phone | [...] [address] | [address] [place], [place] | Anxiety; Anemia; | | | | [place], [place] | [address] | Irregular heartbeat; | | | | [address] | | Depression; | | | | [phone] | | Migraine; | | | | [...] [place] | | | | | | [address] | | | | | | | [...]
--- OUTSIDE RECORDS SUMMARY | ~2019-10-23 | XMS | Encounter Summary ---
Demographics + + + | Address | [address] | | | [place] [address] | + + + | Home Phone [...] [place] | | | | | [address] | | + + + + + Care Team Providers + +------+ + | Care Tools Administrator Name | Role | Phone | + +------+ + | Natalee Andersen NP | PCP | | + +------+ + Encounter Details +--------+---------+ + + + | Date | Type | Department | Care Team | Description | +--------+---------+ + + + | 06/25/ | Surgery | [facility] | Frandy Teresa, | Canceled | | 2013 | | MED CTR OR INTRA OP | DO [address] | PROCEDURE NOT | | | | [address] | [address] [place], [place] | PERFORMED | | | | [place], [place] | [address] | | | | | [address] | | | | | | [phone] | | | +--------+---------+ + + + [...] + + + +---------+ + + | Kerens-3 Fatty | Take 1,000 mg by | [...] | | | | [place], [place] | | | | | | [id number] | | | | | | | [...] mL/min/1.73m2 | [facility] | | | [facility] | RATE,ESTIMATED | | MEDICAL | | | | mL/min/1.32y5Jylb than | | CENTER - | | [...] + | [facility] | [address] | [place] | [phone] | | [facility] | | [address] | | | - LABORATORY | | | | + + + + + | [facility] | [address] | [place] | | | [facility] | | [address] | | | - LABORATORY | | [...] + | [facility] | [address] | [place] | [phone] | | [facility] | | [address] | | | - LABORATORY | | | | + + + + + | [facility] | [address] | [place] | | | [facility] | | [address] | | | - LABORATORY | | [...] [address] | [place] | [phone] | | [facility] | | [address] | | | - LABORATORY | | | | + + + + + | [facility] | [address] | [place], [place] | | | [facility] | | [address] | | | - LABORATORY | | [...] | [facility] | | [address] | | | - BLOOD BANK | [...] | + + + + + | [facility] | [address] | [place], [place] | [phone] | | [facility] | | [address] | | | - LABORATORY | | | | + + + + + | [facility] | [address] | [place], [place] | | | [facility] | | [address] | | | - LABORATORY | | [...]
--- OUTSIDE RECORDS SUMMARY | ~2019-10-23 | XMS | Encounter Summary ---
Demographics + + + | Address | [address] | | | [place] [address] | + + + | Home Phone [...] [place] | | | | | [address] | | + + + + + Care Team Providers + +------+ + | Care Software Integrator Name | Role | Phone | + [...] + + | 07/08/ | Telephone | [facility] | Frandy Teresa, | Other (post op call | | 2013 | | NEUROSURGERY [address] | DO [address] | ) | | | | [address] | [address] | | | | | [place], [place] | [address] | | | | | [address] | | | | | | [phone] | | | +--------+ + + + [...] | | | | | [place] | | | | | | [address] | | | | | | | | +--------+---------+ + + + documented as of this encounter Visit Diagnoses Not on filedocumented in this encounter"
--- OUTSIDE RECORDS SUMMARY | ~2019-10-23 | XMS | Encounter Summary ---
Demographics + + + | Address | [address] | | | [place] [address] | + + + | Home Phone [...] [place] | | | | | [address] | | + + + + + Care Team Providers + +------+ + | Care Veneer Clipper Helper Name | Role | Phone | [...] | | | [facility]NOSTICS | [address] [place], [place] | | | | | [address] [place] | [address] | | | | | [place] [address] | | | | | | [phone] | | | +--------+ + + + [...] [place] | | | | | | [address] | | | | | | | | +--------+---------+ + + + documented as of this encounter Visit Diagnoses Not on filedocumented in this encounter"
--- OUTSIDE RECORDS SUMMARY | ~2019-10-23 | XMS | Encounter Summary ---
Demographics + + + | Address | [address] | | | [place] [address] | + + + | Home Phone [...] [place] | | | | | [address] | | + + + + + Care Team Providers + +------+ + | Care Weight Reduction Specialist Name | Role | Phone | [...] + + | 08/16/ | Documentati | [facility] | Katharine Moncada, | Other (urgent | | 2019 | on | CARDIOLOGY [place] | Technologist | report) | | | | [address] | | | | | | [place] | | | | | | [address] | | | | | | [phone] | | | +--------+ + + + [...] [place] | | | | | | [address] | | | | | | | | +--------+---------+ + + + documented as of this encounter Visit Diagnoses Not on filedocumented in this encounter"
--- OUTSIDE RECORDS SUMMARY | ~2019-10-23 | XMS | Encounter Summary ---
Demographics + + + | Address | [address] | | | [place] [address] | + + + | Home Phone [...] [place] | | | | | [address] | | + + + + + Care Team Providers + +------+ + | Care Educational Coordinator Name | Role | Phone | [...] | Frandy Simons DO | [address] | | | | | of skin | [address] | [place], | | | | | sensation | [address] | [place] | | | | | Arthrodesis | [place], [place] | [address] | | | | | status Left | [address] | Phone: | | | | | leg | Phone: | [phone] | | | | | weakness | [phone] | Fax: | | | | | Procedures | Fax: | [phone] | | | | | MRI Lumbar | [phone] | | | | | | Spine [...] [address] | [address] [place], [place] | | | | | [place], [place] | [address] | | | | | [address] | | | | | | [phone] | | | +--------+ + + + [...] [place] | | | | | | [address] | | | | | | | [...] the round structure with high T1 and K8xwrlho in the right L3 vertebral | | [...] + | MISCELLANEOUS LAB | | | [phone] | + +---------+ + + | MISCELANIOUS LAB | | | [phone] | + +---------+ + + documented in [...]
--- OUTSIDE RECORDS SUMMARY | ~2019-10-23 | XMS | Encounter Summary ---
Demographics + + + | Address | [address] | | | [place] [address] | + + + | Home Phone [...] [place] | | | | | [address] | | + + + + + Care Team Providers + +------+ + | Care Marketing Specialist Name | Role | Phone | + +------+ + | Adriano Patrick MD | PCP | | + +------+ + Encounter Details +--------+ + + + + | Date | Type | Department | Care Team | Description | +--------+ + + + + | 06/12/ | Hospital | [facility] | Frandy Teresa, | No Show | | 2014 | Encounter | MED CTR | DO [address] | | | | | ELECTRODIAGNOSTICS | [address] [place], [place] | | | | | [address] [place] | [address] | | | | | [place] [address] | | | | | | [phone] | | | +--------+ + + + [...] [place] | | | | | | [address] | | | | | | | | +--------+---------+ + + + documented as of this encounter Visit Diagnoses Not on filedocumented in this encounter"
--- OUTSIDE RECORDS SUMMARY | ~2019-10-23 | XMS | Encounter Summary ---
Demographics + + + | Address | [address] | | | [place] [address] | + + + | Home Phone [...] [place], [place] | | | | | [address] | | + + + + + Care Team Providers + +------+ + | Care Health Information Specialist Name | Role | Phone | + +------+ + PCP | Unavailable | + +------+ + Encounter Details +--------+ + + + + | Date | Type | Department | Care Team | Description | +--------+ + + + + | 02/22/ | Hospital | [facility] | | | | 1996 - | Encounter | MED CTR GENERIC PSY | | | | | | CONV DEPT [address] | | | | 02/26/ | | [place], | | | | 1996 | | [place] [address] | | | | | | [phone] | | | +--------+ + + + [...] [place] | | | | | | [address] | | | | | | | | +--------+---------+ + + + documented as of this encounter Visit Diagnoses Not on filedocumented in this encounter"
--- OUTSIDE RECORDS SUMMARY | ~2019-10-23 | XMS | Encounter Summary ---
Demographics + + + | Address | [address] | | | [place] [address] | + + + | Home Phone [...] [place] | | | | | [address] | | + + + + + Care Team Providers + +------+ + | Care Respiratory Therapy Technician Name | Role | Phone | [...] [address] | [address] [place], [place] | | | | | [place], [place] | [id number] | | | | | [address] | | | | | | [phone] | | | +--------+ + + + [...] | | | | [place] | | | | | | [address] | | | | | | | | +--------+---------+ + + + documented as of this encounter Visit Diagnoses Not on filedocumented in this encounter"
--- OUTSIDE RECORDS SUMMARY | ~2019-10-23 | XMS | Encounter Summary ---
Demographics + + + | Address | [address] | | | [place] [address] | + + + | Home Phone [...] [place] | | | | | [address] | | + + + + + Care Team Providers + +------+ + | Care Fleet Sales Associate Name | Role | Phone [...] | SLEEP DISORDER [address] | [address] | | | | | [address] [place] | [place], [place] | | | | | [place] [address] | [address] | | | | | [phone] | | | +--------+ + + + [...] | | | | | [place] | | | | | | [address] | | | | | | | | +--------+---------+ + + + documented as of this encounter Visit Diagnoses Not on filedocumented in this encounter"
--- OUTSIDE RECORDS SUMMARY | ~2019-10-23 | XMS | Encounter Summary ---
Demographics + + + | Address | [address] | | | [place] [address] | + + + | Home Phone [...] [place] | | | | | [address] | | + + + + + Care Team Providers + +------+ + | Care Manufacturing Machine Operator Name | Role | Phone | + +------+ + | Natalee Andersen NP | PCP | | + +------+ + Encounter Details +--------+ + + + + | Date | Type | Department | Care Team | Description | +--------+ + + + + | 05/02/ | Hospital | [facility] | Frandy Teresa, | Back pain | | 2014 | Encounter | MED CTR XRAY [address] | DO [address] | | | | | [place] | [address] [place] | | | | | [place] [address] | [address] | | | | | [phone] | | | +--------+ + + + [...] + + + +---------+ + + | Tupman-3 Fatty | Take 1,000 mg by | [...] | | | | | [place] | | | | | | [address] | | | | | | | [...] + | MISCELLANEOUS LAB | | | [phone] | + +---------+ + + | MISCELANIOUS LAB | | | [phone] | + +---------+ + + documented in this encounter Visit Diagnoses + + | Diagnosis | + + | Back pain Backache, unspecified | + + documented in this encounter"
--- OUTSIDE RECORDS SUMMARY | ~2019-10-23 | XMS | Encounter Summary ---
Demographics + + + | Address | [address] | | | [place] [address] | + + + | Home Phone [...] [place] | | | | | [address] | | + + + + + Care Team Providers + +------+ + | Care Teacher Home Therapy Name | Role | Phone | [...] + + | 08/21/ | Documentati | [facility] | Katharine Moncada, | Other (urgent | | 2019 | on | CARDIOLOGY [place] | Technologist | report) | | | | [address] | | | | | | [place] | | | | | | [address] | | | | | | [phone] | | | +--------+ + + + [...] [place] | | | | | | [address] | | | | | | | | +--------+---------+ + + + documented as of this encounter Visit Diagnoses Not on filedocumented in this encounter"
--- OUTSIDE RECORDS SUMMARY | ~2019-10-23 | XMS | Encounter Summary ---
Demographics + + + | Address | [address] | | | [place] [address] | + + + | Home Phone [...] [place] | | | | | [address] | | + + + + + Care Team Providers + +------+ + | Care Patient Day Coordinator Name | Role | Phone | [...] + | 07/15/ | Telephone | [facility] | Russell Alfaro PA | Other | | 2016 | | SLEEP DISORDER [address] | [address] | | | | | [address] | [place] [facility] [place] | | | | | [place] [address] | [address] | | | | | [phone] | | | +--------+ + + + [...] [place] | | | | | | [address] | | | | | | | | +--------+---------+ + + + documented as of this encounter Visit Diagnoses Not on filedocumented in this encounter"
--- OUTSIDE RECORDS SUMMARY | ~2019-10-23 | XMS | Clinical Summary ---
Demographics + + + | Address | [address] | | | [place] [address] | + + + | Home Phone [...] + + + | Author | [facility] (Historical as of | | | 06-09-19) | + + + | Organization | [facility] (Historical as of | | | [...] Providers + +------+ + | Care Nursing Department Chairperson Name | Role | Phone | + [...] | | Activ | | (VITAMIN D3) [id number] | a week. | | | | [...] T2DM (type 2 diabetes mellitus) ([facility]) | 04/13/2013 | + + [...] +------+-------+ + | MEDICARE | MEDICA | [id number] | | | [address] | | | RE | | | | [place] [address] | | | IP-OP | | | [...] Self | [birth year] | Home: | [address] | | | al/Fam | | 1955 | [phone] | [address] [place] | | | [place] | | | [phone] | [phone] | + +--------+ +--------+ + +
--- OUTSIDE RECORDS SUMMARY | ~2019-10-23 | XMS | Encounter Summary ---
Demographics + + + | Address | [address] | | | [place] [address] | + + + | Home Phone [...] [place] | | | | | [address] | | + + + + + Care Team Providers + +------+ + | Care Tight Cooper Name | Role | Phone | + [...] + + | 08/22/ | Documentati | [facility] | Katharine Moncada, | Other (urgent | | 2019 | on | CARDIOLOGY [place] | Technologist | report) | | | | [address] | | | | | | [place] | | | | | | [address] | | | | | | [phone] | | | +--------+ + + + [...] [place] | | | | | | [address] | | | | | | | | +--------+---------+ + + + documented as of this encounter Visit Diagnoses Not on filedocumented in this encounter"
--- OUTSIDE RECORDS SUMMARY | ~2019-10-23 | XMS | Encounter Summary ---
Demographics + + + | Address | [address] | | | [place] [address] | + + + | Home Phone [...] [place] | | | | | [address] | | + + + + + Care Team Providers + +------+ + | Care Wearing Apparel Presser Name | Role | Phone | [...] | SLEEP DISORDER 401 | [address] | | | | | [address] [place] | [place], [place] | | | | | [place] [address] | [address] | | | | | [phone] | | | +--------+ + + + [...] | | | | | [place] | | | | | | [address] | | | | | | | | +--------+---------+ + + + documented as of this encounter Visit Diagnoses Not on filedocumented in this encounter"
--- OUTSIDE RECORDS SUMMARY | ~2019-10-23 | XMS | Encounter Summary ---
Demographics + + + | Address | [address] | | | [place] [address] | + + + | Home Phone [...] [place] | | | | | [address] | | + + + + + Care Team Providers + +------+ + | Care Consultants Intern Name | Role | Phone | [...] + + | 10/22/ | Telephone | [facility] | Susu Peralta, | Other | | 2019 | | CARDIOLOGY [place] | [place] | | | | | [address] | | | | | | [place], [place] | | | | | | [address] | | | | | | [phone] | | | +--------+ + + + [...] | | | | | [place] | | | | | | [address] | | | | | | | | +--------+---------+ + + + documented as of this encounter Visit Diagnoses Not on filedocumented in this encounter"
--- OUTSIDE RECORDS SUMMARY | ~2019-10-23 | XMS | Encounter Summary ---
Demographics + + + | Address | [address] | | | [place] [address] | + + + | Home Phone [...] [place] | | | | | [address] | | + + + + + Care Team Providers + +------+ + | Care Shift Mgr Name | Role | Phone | [...] [address] | [address] [place], [place] | | | | | [place], [place] | [id number] | | | | | [address] | | | | | | [phone] | | | +--------+ + + + [...] | | | | | [place] | | | | | | [address] | | | | | | | | +--------+---------+ + + + documented as of this encounter Visit Diagnoses Not on filedocumented in this encounter"
--- OUTSIDE RECORDS SUMMARY | ~2019-10-23 | XMS | Encounter Summary ---
Demographics + + + | Address | [address] | | | [place] [address] | + + + | Home Phone [...] [place] | | | | | [address] | | + + + + + Care Team Providers + +------+ + | Care Rn Gyn Name | Role | Phone | + [...] [place] | | | | | | [address] | | | | | | [phone] | | | +--------+ + + + [...] [place] | | | | | | [address] | | | | | | | | +--------+---------+ + + + documented as of this encounter Visit Diagnoses Not on filedocumented in this encounter"
--- OUTSIDE RECORDS SUMMARY | ~2019-10-23 | XMS | Encounter Summary ---
Demographics + + + | Address | [address] | | | [place] [address] | + + + | Home Phone [...] [place], [place] | | | | | [address] | | + + + + + Care Team Providers + +------+ + | Care Hog Sawyer Name | Role | Phone | + +------+ + PCP | Unavailable | + +------+ + Encounter Details +--------+ + + + + | Date | Type | Department | Care Team | Description | +--------+ + + + + | 02/22/ | Hospital | [facility] | | | | 1996 | Encounter | MED CTR EMERGENCY | | | | | | [address] | | | | | | [place] | | | | | | [address] | | | | | | [phone] | | | +--------+ + + + [...] | | | | | [place] | | | | | | [address] | | | | | | | | +--------+---------+ + + + documented as of this encounter Visit Diagnoses Not on filedocumented in this encounter"
--- OUTSIDE RECORDS SUMMARY | ~2019-10-23 | XMS | Encounter Summary ---
Demographics + + + | Address | [address] | | | [place] [address] | + + + | Home Phone [...] [place] | | | | | [address] | | + + + + + Care Team Providers + +------+ + | Care Demand Generation Manager Name | Role | Phone | [...] | [address] | [place], [place] | (Primary Dx); | | | | [address] [place] | [address] | Essential | | | | [place] | | hypertension; | | | | [address] | | Irregular heartbeat | | | | [phone] | | | +--------+---------+ + + + [...] Peterson DO - 07/19/2019 10:40 AM PDT [facility] Cardiology Follow [...] by mouth daily. Blood Glucose Monitoring Suppl (Powtoon VERIO FLEX SYSTEM) w/Device KIT by Does not ap ply route. budesonide-formoterol (SYMBICORT) 160-4.5 MCG/ACT inhaler Inhale 2 puffs into the lungs 2 (two) times daily. Calcium Carbonate Antacid 1000 MG tablet Take 1,000 mg by mouth 3 (three) times daily. Cholecalciferol (VITAMIN D3) 11574 units CAPS Take by mouth once a [...] [place] | | | | | | [address] | | | | | | | [...]
--- OUTSIDE RECORDS SUMMARY | ~2019-10-23 | XMS | Encounter Summary ---
Demographics + + + | Address | [address] | | | [place] [address] | + + + | Home Phone [...] [place], [place] | | | | | [address] | | + + + + + Care Team Providers + +------+ + | Care Supervisor Border Department Name | Role | Phone | [...] | SR | | | | | [phone] | | | +--------+ + + + [...] [place] | | | | | | [address] | | | | | | | | +--------+---------+ + + + documented as of this encounter Visit Diagnoses Not on filedocumented in this encounter
--- OUTSIDE RECORDS SUMMARY | ~2019-10-23 | XMS | Encounter Summary ---
Demographics + + + | Address | [address] | | | [place] [address] | + + + | Home Phone [...] [place], [place] | | | | | [address] | | + + + + + Care Team Providers + +------+ + | Care Admin Asst Name | Role | Phone | + +------+ + PCP | Unavailable | + +------+ + Encounter Details +--------+ + + + + | Date | Type | Department | Care Team | Description | +--------+ + + + + | 01/06/ | Hospital | [facility] | | | | 1992 | Encounter | MED CTR LABORATORY | | | | | | [address] | | | | | | [place] | | | | | | [address] | | | | | | [phone] | | | +--------+ + + + [...] | | | | | [place] | | | | | | [address] | | | | | | | | +--------+---------+ + + + documented as of this encounter Visit Diagnoses Not on filedocumented in this encounter"
--- OUTSIDE RECORDS SUMMARY | ~2019-10-23 | XMS | Encounter Summary ---
Demographics + + + | Address | [address] | | | [place] [address] | + + + | Home Phone [...] [place], [place] | | | | | [address] | | + + + + + Care Team Providers + +------+ + | Care Trucking Manager Name | Role | Phone | + +------+ + PCP | Unavailable | + +------+ + Encounter Details +--------+ + + + + | Date | Type | Department | Care Team | Description | +--------+ + + + + | 06/17/ | Hospital | [facility] | | | | 1991 - | Encounter | MED CTR GENERIC PSY | | | | | | CONV DEPT [address] | | | | 06/18/ | | [address], | | | | 1991 | | [place] [address] | | | | | | [phone] | | | +--------+ + + + [...] [place] | | | | | | [address] | | | | | | | | +--------+---------+ + + + documented as of this encounter Visit Diagnoses Not on filedocumented in this encounter"
--- OUTSIDE RECORDS SUMMARY | ~2019-10-23 | XMS | Encounter Summary ---
Demographics + + + | Address | [address] | | | [place] [address] | + + + | Home Phone [...] [place] | | | | | [address] | | + + + + + Care Team Providers + +------+ + | Care Construction Accountant Name | Role | Phone | [...] | | [address] | [place] [address] | | | | | [place], [place] | [phone] | | | | | [address] | | | | | | [phone] | | | +--------+ + + + [...] [place] | | | | | | [address] | | | | | | | | +--------+---------+ + + + documented as of this encounter Visit Diagnoses Not on filedocumented in this encounter"
--- OUTSIDE RECORDS SUMMARY | ~2019-10-23 | XMS | Encounter Summary ---
Demographics + + + | Address | [address] | | | [place] [address] | + + + | Home Phone [...] [place] | | | | | [address] | | + + + + + Care Team Providers + +------+ + | Care Element Winding Machine Tender Name | Role | Phone [...] + + | 08/09/ | Clinical | [facility] | Desiree Peterson DO | Syncope, unspecified | | 2019 | Support | CARDIOLOGY [place] | [address] | syncope type | | | | [address] | [place], [place] | | | | | [place] [address] | [address] | | | | | [place] | | | | | | [address] | Dora De La Torre | | | | | [phone] | CAROLINE Mendez [address] | | | | | | [address] | | | | | | [place] [address] | | | | | | [phone] | | | | | | | [...] [place] | | | | | | [address] | | | | | | | | +--------+---------+ + + + documented as of this encounter Visit Diagnoses + + | Diagnosis | + + | Syncope, unspecified syncope type | + + documented in this encounter"
--- OUTSIDE RECORDS SUMMARY | ~2019-10-23 | XMS | Encounter Summary ---
Demographics + + + | Address | [address] | | | [place] [address] | + + + | Home Phone [...] [place] | | | | | [address] | | + + + + + [...] Closed | | Radiology | Diagnoses | [place], | | | | | | Thoracic or | Natalee L, | | | | | | lumbosacral | [address] | | | | | | neuritis or | [address] [place] | | | | | | | [address] | | | | | | radiculitis, | [place], | | | | | | unspecified | [place] [address] | | | | | | | Phone: | | | | | | Degeneration | [phone] | | | | | | of lumbar | Fax: | | | | | | or | [phone] | | | | | | lumbosacral [...] + + | 03/11/ | Hospital | [facility] | Natalee Andersen | Thoracic or | | 2013 | Encounter | MED CTR MRI [address] | L, [address] | lumbosacral neuritis | | | | [place], | [address] | or radiculitis, | | | | [place] [address] | [place] [address] | unspecified; | | | | [phone] | [phone] | Degeneration of | | | | [...] + + + +---------+ + + | [place]-3 Fatty | Take 1,000 mg by | [...] | | | | | | [facility] | | | | | | [address] | | | | | | | [...] + | MISCELLANEOUS LAB | | | [phone] | + +---------+ + + | MISCELANIOUS LAB | | | [phone] | + +---------+ + + documented in this encounter Visit Diagnoses + + | Diagnosis | + + | Thoracic or lumbosacral neuritis or radiculitis, unspecified | + + | Degeneration of lumbar or lumbosacral intervertebral disc | + + documented in this encounter"
--- OUTSIDE RECORDS SUMMARY | ~2019-10-23 | XMS | Encounter Summary ---
Demographics + + + | Address | [address] | | | [place] [address] | + + + | Home Phone [...] [place] | | | | | [address] | | + + + + + Care Team Providers + +------+ + | Care Glass Wool Blanket Machine Feeder Name | Role | Phone [...] + + | 08/14/ | Documentati | [facility] | Katharine Moncada, | Other (urgent | | 2019 | on | CARDIOLOGY [place] | Technologist | report) | | | | [address] | | | | | | [place] | | | | | | [address] | | | | | | [phone] | | | +--------+ + + + [...] [place] | | | | | | [address] | | | | | | | | +--------+---------+ + + + documented as of this encounter Visit Diagnoses Not on filedocumented in this encounter"
--- OUTSIDE RECORDS SUMMARY | ~2019-10-23 | XMS | Encounter Summary ---
Demographics + + + | Address | [address] | | | [place] [address] | + + + | Home Phone [...] [place] | | | | | [address] | | + + + + + Care Team Providers + +------+ + | Care Peoplesoft Analyst Name | Role | Phone | [...] + + | 02/01/ | Telephone | [facility] | Frandy Teresa, | Imaging Only | | 2019 | | NEUROSURGERY [address] | DO [address] | | | | | [address] | [address] [place], [place] | | | | | [place], [place] | [address] | | | | | [address] | | | | | | [phone] | | | +--------+ + + + [...] [place] | | | | | | [address] | | | | | | | | +--------+---------+ + + + documented as of this encounter Visit Diagnoses Not on filedocumented in this encounter"
--- OUTSIDE RECORDS SUMMARY | ~2019-10-23 | XMS | Encounter Summary ---
Demographics + + + | Address | [address] | | | [place] [address] | + + + | Home Phone [...] [place] | | | | | [address] | | + + + + + Care Team Providers + +------+ + | Care Paid Search Specialist Name | Role | Phone | [...] + | 11/25/ | Telephone | [facility] | Frandy Teresa, | Medication Refill | | 2015 | | NEUROSURGERY [address] | DO [address] | Assistance | | | | [address] | [address] [place], [place] | | | | | [place], [place] | [address] | | | | | [address] | | | | | | [phone] | | | +--------+ + + + [...] | | | | | [place] | | | | | | [address] | | | | | | | | +--------+---------+ + + + documented as of this encounter Visit Diagnoses Not on filedocumented in this encounter"
--- OUTSIDE RECORDS SUMMARY | ~2019-10-23 | XMS | Encounter Summary ---
Demographics + + + | Address | [address] | | | [place] [address] | + + + | Home Phone [...] [place] | | | | | [address] | | + + + + + Care Team Providers + +------+ + | Care Quill Reamer Name | Role | Phone | [...] [place] | | | | | | [address] | | | | | | [phone] | | | +--------+ + + + [...] [place] | | | | | | [address] | | | | | | | | +--------+---------+ + + + documented as of this encounter Visit Diagnoses Not on filedocumented in this encounter"
--- OUTSIDE RECORDS SUMMARY | ~2019-10-23 | XMS | Encounter Summary ---
Demographics + + + | Address | [address] | | | [place] [address] | + + + | Home Phone [...] [place], [place] | | | | | [address] | | + + + + + Care Team Providers + +------+ + | Care Superintendent Sales Name | Role | Phone | + +------+ + PCP | Unavailable | + +------+ + Encounter Details +--------+ + + + + | Date | Type | Department | Care Team | Description | +--------+ + + + + | 07/23/ | Hospital | [facility] | | | | 1992 - | Encounter | MED CTR GENERIC PSY | | | | | | CONV DEPT [address] | | | | 07/28/ | | [place], | | | | 1992 | | [place] [address] | | | | | | [phone] | | | +--------+ + + + [...] [place] | | | | | | [address] | | | | | | | | +--------+---------+ + + + documented as of this encounter Visit Diagnoses Not on filedocumented in this encounter"
--- OUTSIDE RECORDS SUMMARY | ~2019-10-23 | XMS | Encounter Summary ---
Demographics + + + | Address | [address] | | | [place] [address] | + + + | Home Phone [...] [place], [place] | | | | | [address] | | + + + + + Care Team Providers + +------+ + | Care Excavator Backhoe Operator Name | Role | Phone | + +------+ + PCP | Unavailable | + +------+ + Encounter Details +--------+ + + + + | Date | Type | Department | Care Team | Description | +--------+ + + + + | 03/26/ | Hospital | [facility] | | | | 2001 | Encounter | MED CTR LABORATORY | | | | | | [address] | | | | | | [place] | | | | | | [address] | | | | | | [phone] | | | +--------+ + + + [...] | | | | | [place] | | | | | | [address] | | | | | | | | +--------+---------+ + + + documented as of this encounter Visit Diagnoses Not on filedocumented in this encounter"
--- OUTSIDE RECORDS SUMMARY | ~2019-10-23 | XMS | Encounter Summary ---
Demographics + + + | Address | [address] | | | [place] [address] | + + + | Home Phone [...] [place] | | | | | [address] | | + + + + + Care Team Providers + +------+ + | Care Plate Corrector Name | Role | Phone | + [...] [id number] | | | | | | [place], [place] | | | | | | [address] | | | | | | [phone] | | | +--------+ + + + [...] | + + + + + | [facility] | [address] | [place] [address] | | | PATHOLOGY | [address] [...] Re | | | | | | [address] | | | | + + + + + + + + | Specimen | + + | | + + + + + + + | Performing | Address | City/State/Zipcode | Phone Number | | Organization | | | | + + + + + | [facility] | [address] | [place] [address] | | | PATHOLOGY | [address] [...] Re | | | | | | [address] | | | | + + + + + + + + | Specimen | + + | | + + + + + + + | Performing | Address | City/State/Zipcode | Phone Number | | Organization | | | | + + + + + | [facility] | [address] | [place] [address] | | | PATHOLOGY | [address] [...] Re | | | | | | [address] | | | | + + + + + + + + | Specimen | + + | | + + + + + + + | Performing | Address | City/State/Zipcode | Phone Number | | Organization | | | | + + + + + | [facility] | [address] | [place] [address] | | | PATHOLOGY | [address] [...] Re | | | | | | [address] | | | | + + + + + + + + | Specimen | + + | | + + + + + + + | Performing | Address | City/State/Zipcode | Phone Number | | Organization | | | | + + + + + | [facility] | [address] | [place] [address] | | | PATHOLOGY | [address] | | | + + + + + documented in this encounter Visit Diagnoses Not on filedocumented in this encounter"
--- OUTSIDE RECORDS SUMMARY | ~2019-10-23 | XMS | Encounter Summary ---
Demographics + + + | Address | [address] | | | [place] [address] | + + + | Home Phone [...] [place] | | | | | [address] | | + + + + + Care Team Providers + +------+ + | Care Vp Marketing Name | Role | Phone | + +------+ + | Natalee Andersen NP | PCP | | + +------+ + Encounter Details +--------+ + + + + | Date | Type | Department | Care Team | Description | +--------+ + + + + | 07/06/ | Hospital | [facility] | Latricia Feliciano | | | 2014 | Encounter | MED CTR ACUTE | D, PT [address] | | | | | PHYSICAL THERAPY | NEFTALIE [place] | | | | | [address] | [address] | | | | | [place] [address] | | | | | | [phone] | | | +--------+ + + + [...] + + + +---------+ + + | Boody-3 Fatty | Take 1,000 mg by | [...] | | | | | [place] | | | | | | [address] | | | | | | | | +--------+---------+ + + + documented as of this encounter Visit Diagnoses Not on filedocumented in this encounter"
--- OUTSIDE RECORDS SUMMARY | ~2019-10-23 | XMS | Encounter Summary ---
Demographics + + + | Address | [address] | | | [place] [address] | + + + | Home Phone [...] [place], [place] | | | | | [address] | | + + + + + Care Team Providers + +------+ + | Care Sample Preparation Supervisor Name | Role | Phone | + +------+ + PCP | Unavailable | + +------+ + Encounter Details +--------+ + + + + | Date | Type | Department | Care Team | Description | +--------+ + + + + | 02/22/ | Hospital | [facility] | | | | 1996 - | Encounter | MED CTR GENERIC PSY | | | | | | CONV DEPT [address] | | | | 02/26/ | | [address], | | | | 1996 | | [place] [address] | | | | | | [phone] | | | +--------+ + + + [...] [place] | | | | | | [address] | | | | | | | | +--------+---------+ + + + documented as of this encounter Visit Diagnoses Not on filedocumented in this encounter"
--- OUTSIDE RECORDS SUMMARY | ~2019-10-23 | XMS | Encounter Summary ---
Demographics + + + | Address | [address] | | | [place] [address] | + + + | Home Phone [...] [place] | | | | | [address] | | + + + + + Care Team Providers + +------+ + | Care Supply Assistant Name | Role | Phone [...] | | | | [address] [place] | [place] [address] | | | | | [place] [address] | [phone] | | | | | [phone] | | | +--------+--------+ + + + [...] [place] | | | | | | [address] | | | | | | | | +--------+---------+ + + + documented as of this encounter Visit Diagnoses + + | Diagnosis | + + | Essential hypertension - Primary Unspecified essential hypertension | + + documented in this encounter"
--- OUTSIDE RECORDS SUMMARY | ~2019-10-23 | XMS | Encounter Summary ---
Demographics + + + | Address | [address] | | | [place] [address] | + + + | Home Phone [...] [place] | | | | | [address] | | + + + + + Care Team Providers + +------+ + | Care Shingle Shearing Machine Operator Name | Role | Phone [...] + + | 08/20/ | Documentati | [facility] | Katharine Moncada, | Other (urgent | | 2019 | on | CARDIOLOGY [place] | Technologist | report) | | | | [address] | | | | | | [place] | | | | | | [address] | | | | | | [phone] | | | +--------+ + + + [...] [place] | | | | | | [address] | | | | | | | | +--------+---------+ + + + documented as of this encounter Visit Diagnoses Not on filedocumented in this encounter"
--- OUTSIDE RECORDS SUMMARY | ~2019-10-23 | XMS | Encounter Summary ---
Demographics + + + | Address | [address] | | | [place] [address] | + + + | Home Phone [...] + | [address] | ECON | [place], [place] | | | | | [address] | | + + + + + Care Team Providers + +------+ + | Care Shirt Line Operator Name | Role | Phone | + +------+ + PCP | Unavailable | + +------+ + Encounter Details +--------+ + + + + | Date | Type | Department | Care Team | Description | +--------+ + + + + | 01/26/ | Hospital | [facility] | [place], Heaht E A, | | | 2012 | Encounter | MED CTR XRAY [address] | MD [address] | | | | | [place] | [place] | | | | | [place] [address] | [address] | | | | | [phone] | | | +--------+ + + + [...] [place] | | | | | | [address] | | | | | | | [...] | [facility] | [facility] | | [address] | [facility] | | BILATERAL KNEES, THREE VIEWS: | [...] Transcribed | | | Date/Time: 01/27/2012 17:18 Sample Tester Grinder: | | | <Electronically Signed by Willie Perry MD> 01/27/12 1194 | | + + + + + | Procedure Note | + + | Juan, Rad Conversion - 11/30/2013 5:03 PM [facility] | | Diagnostic Imaging Department [address] [place] [address] | | BILATERAL KNEES, THREE VIEWS: 01/27/2012 [...] 17:12 | |Transcribed Date/Time: 01/27/2012 17:18 | |Sample Tester Grinder: | |<Electronically Signed by Willie Perry MD> 01/27/12 724 | + + + +---------+ + + | Performing | Address | City/State/Zipcode | Phone Number | | Organization | | | | + +---------+ + + | [place] | | | | | [facility] [facility] | | | | + +---------+ + + documented in this encounter Visit Diagnoses Not on filedocumented in this encounter"
--- OUTSIDE RECORDS SUMMARY | ~2019-10-23 | XMS | Encounter Summary ---
Demographics + + + | Address | [address] | | | [place] [address] | + + + | Home Phone [...] [place], [place] | | | | | [address] | | + + + + + Care Team Providers + +------+ + | Care Cashier Or Checker Stock Clerk Name | Role | Phone | + +------+ + PCP | Unavailable | + +------+ + Encounter Details +--------+ + + + + | Date | Type | Department | Care Team | Description | +--------+ + + + + | 08/21/ | Hospital | [facility] | | | | 1996 | Encounter | MED CTR LABORATORY | | | | | | [address] | | | | | | [place] | | | | | | [address] | | | | | | [phone] | | | +--------+ + + + [...] | | | | | [place] | | | | | | [address] | | | | | | | | +--------+---------+ + + + documented as of this encounter Visit Diagnoses Not on filedocumented in this encounter"
--- OUTSIDE RECORDS SUMMARY | ~2019-10-23 | XMS | Encounter Summary ---
Demographics + + + | Address | [address] | | | [place] [address] | + + + | Home Phone [...] [place], [place] | | | | | [address] | | + + + + + Care Team Providers + +------+ + | Care Physical Laboratory Assistant Name | Role | Phone | + +------+ + PCP | Unavailable | + +------+ + Encounter Details +--------+ + + + + | Date | Type | Department | Care Team | Description | +--------+ + + + + | 04/16/ | Hospital | [facility] | | | | 1997 | Encounter | MED CTR XRAY [address] | | | | | | [address] | | | | | | [place] [address] | | | | | | [phone] | | | +--------+ + + + [...] | | | | | [place] | | | | | | [address] | | | | | | | | +--------+---------+ + + + documented as of this encounter Visit Diagnoses Not on filedocumented in this encounter"
--- OUTSIDE RECORDS SUMMARY | ~2019-10-23 | XMS | Encounter Summary ---
Demographics + + + | Address | [address] | | | [place] [address] | + + + | Home Phone [...] [place] | | | | | [address] | | + + + + + Care Team Providers + +------+ + | Care Plasma Center Technician Name | Role | Phone | [...] | Services | ogy | Epigastric | [facility], | Tyrese Shelley MD | | | Required | | abdominal | [place], | [address], | | | | | pain GERD | HIDE MILL WORKER [address] | [address] | | | | | (gastroesoph | [address], [address] | [place], | | | | | ageal reflux | [address] [place] | [place] [address] | | | | | disease) | [place], [place] | Phone: | | | | | Fatty liver | [address] | [phone] | | | | | DM | Phone: | Fax: | | | | | (diabetes | [phone] | [phone] | | | | | mellitus) | Fax: | | | | | | (HCC) | [phone] | | +--------+ + + + + [...] 03/06/ | Office | [facility] | [facility], | Epigastric abdominal | | 2012 | Visit | GASTROENTEROLOGY | FORTUNATO Thomas [address] | pain (Primary Dx); | | | | [address] | [place], [address] | GERD | | | | [address] [place], [place] | [place], [place] | (gastroesophageal | | | | [address] | [address] | reflux disease); | | | | [phone] | | Fatty liver; DM | | [...] years ago by Dr. Saravanan Tsai, in [facility]. Colonoscopy was done 05/[address] Hamlin in [facility]. Allergies Allergen Reactions Demerol Duloxetine Erythromycin [...] | | | | | [place], [place] | | | | | | [id number] | | | | | | | [...]
--- OUTSIDE RECORDS SUMMARY | ~2019-10-23 | XMS | Clinical Summary ---
Demographics + + + | Address | [address] | | | [place] [address] | + + + | Home Phone [...] + + | Author | [facility] (Historical as of | | | 06-09-19) | + + + | Organization | [facility] (Historical as of | | | [...] Providers + +------+ + | Care Music Journalist Name | Role | Phone | [...] | | Activ | | (VITAMIN D3) [address] | a week. | | | | [...] T2DM (type 2 diabetes mellitus) ([facility]) | 04/13/2013 | + + + Immunizations [...] +------+-------+ + | MEDICARE | MEDICA | [id number] | | | [address] | | | RE | | | | [place] [address] | | | IP-OP | | | [...] Self | [birth year] | Home: | [address] | | al/Fam | | 1955 | [phone] | [address] [place] | | | [place] | | | [phone] | [phone] | + +--------+ +--------+ + +
--- OUTSIDE RECORDS SUMMARY | ~2019-10-23 | XMS | Clinical Summary ---
Demographics + + + | Address | [address] | | | [place] [address] | + + + | Home Phone [...] [place] | | | | | [address] | | + + + + + Care Team Providers + +------+ + | Care Collection Development Librarian Name | Role | Phone | [...] | | Activ | | (VITAMIN D-3) [address]70[address] | mouth Once a week. | | [...] | | ([facility]LY [facility]) | | | | | | | [...] | | | | e | | (Array Storm VERIO FLEX | | | | | [...] | | 2018 | | | D, Paperhanger | calling to be seen | | [...] | | 2018 | | | D, Paperhanger | to take monitor | | | | | | off. ) | +--------+ + + + + | 08/28/ | Telephone | Cardiology | Ashley Chávez | Other (Patient has | | 2018 | | | D, Paperhanger | questions about | | | | [...] to | 2018 | | | [place], Paperhanger | tell patient what Dr | | [...] | | 2019 | | | D, Paperhanger | anxious about urgent | | | [...] | | 2018 | | | D, Paperhanger | about coverage. ) | +--------+ + + + + | 07/30/ | Telephone | Cardiology | Ashley Chávez | Other (Patient | | 2018 | | | D, Paperhanger | concerns ) | +--------+ + + + + | 07/24/ | Telephone | Cardiology | Ashley Chávez | Other (Patient is | | 2018 | | | D, Paperhanger | worried about paying | | | [...] [place] | | | | | | [address] | | | | | | | [...] | [employer] - | | 04/02/ | [id number] | | 5ccImplanted: Qty: 1 on | | Spine | MEDT | | 2019 | | | 07/02/2014 by Frandy Teresa | | Lumbar | | | | /[id number] | | A, DO at [facility] | | | | | | 6-020 | | [facility] | | | | | | / | + +------+--------+ +--------+--------+--------+ | Graft Infuse Bone Kit Xxs - | | N/A: | SOFAMOR | | 01/21/ | [id number] | | [id number]: Qty: 1 on | | Spine | DANEK - DIV | | 2014 | 0 / | | 07/02/2014 by Frandy Teresa | | Lumbar | [employer] | | | /[id number] | | A, DO at [facility] | | | - SFDK | | | 06AAH | | [facility] | | | | | | | + +------+--------+ +--------+--------+--------+ | Imp Spn Spcr Cpstn 8x26mm - | | N/A: | SOFAMOR | | 01/11/ | [id number] | | [id number]: Qty: 1 on | | Spine | DANEK - DIV | | 2021 | 6 / | | 07/02/2014 by Frandy Teresa | | Lumbar | [employer] | | | /[id number] | | DO Ronak at [facility] | | | - SFDK | | | 928 | | [facility] | | | | | | | + +------+--------+ +--------+--------+--------+ | Set Scrw Ns G5 Brk Off Ti | | N/A: | SOFAMOR | | | [id number] | | 4.75 - [id number]: | | Spine | DANEK - DIV | | | 0 / / | | Qty: 4 on 07/02/2014 by | | Lumbar | [employer] | | | | | Frandy Teresa DO at [facility] | | | - SFDK | | | | | [facility] | | | | | | | | [place] | | | | | | | + +------+--------+ +--------+--------+--------+ | RodImplanted: Qty: 1 on | | N/A: | | | | [id number] | | 07/02/2014 by Frandy Teresa | | Spine | | | | 540 / | | DO Ronak at [facility] | | Lumbar | | | | / | | [facility] | | | | | | | + +------+--------+ +--------+--------+--------+ | RodImplanted: Qty: 1 on | | N/A: | MEDTROL - | | | [id number] | | 07/02/2014 by Frandy Teresa | | Spine | MDTR | | | 545 / | | DO Ronak at [facility] | | Lumbar | | | | / | | [facility] | | | | | | | + +------+--------+ +--------+--------+--------+ | Screw 7.5x50mm Sextant - | | N/A: | [employer] - | | | [id number] | | [id number]: Qty: 1 on | | Spine | MEDT | | | [id number] | | 07/02/2014 by Frandy Teresa | | Lumbar | | | | / / | | DO Ronak at [facility] | | | | | | | | [facility] | | | | | | | + +------+--------+ +--------+--------+--------+ | Cannulated ScrewImplanted: | | N/A: | MEDTROL - | | | [id number] | | Qty: 1 on 07/02/2014 by | | Spine | MDTR | | | [id number] | | Frandy Teresa DO at [facility] | | Lumbar | | | | / / | | [facility] | | | | | | | | CENTER | | | | | | | + +------+--------+ +--------+--------+--------+ | Cannulated ScrewImplanted: | | N/A: | [employer] - | | | [id number] | | Qty: 1 on 07/02/2014 by | | Spine | MEDT | | | [id number] | | Frandy Teresa DO at [facility] | | [place] | | | | / / | | [facility] | | | | | | | | [place] | | | | | | | [...] +--------+ +---------+--------+ | MEDICARE | MEDICA | [id number] | 02/22/20 | [phone] | | Medica | | | RE | | 09-Pre | 5 | | re | | | PART A | | sent | | | | | | AND B | | | | | | + +--------+ +--------+ +---------+--------+ | MEDICARE | MEDICA | [id number] | 02/22/20 | [phone] | | Medica [...] devonte | | | 1 (Home) | [address] | + +--------+ +--------+ + + | Cindy Arndt L | Person | Self | [birth year] | [address] | | | al/Fam | | 1955 | [phone] | [address] [place], [place] | | | devonte | | | 1 (Home) | [address] | + +--------+ +--------+ + + Advance Directives + + + + + | Type | Date Recorded | Patient | Explanation | | | | Sample Driller | | + + + + + | Power of | | | | | [employer] | | | | + + + [...]
--- OUTSIDE RECORDS SUMMARY | ~2019-10-23 | XMS | Encounter Summary ---
Demographics + + + | Address | [address] | | | [place] [address] | + + + | Home Phone [...] [place], [place] | | | | | [address] | | + + + + + Care Team Providers + +------+ + | Care Contract Specialist Name | Role | Phone | + +------+ + PCP | Unavailable | + +------+ + Encounter Details +--------+ + + + + | Date | Type | Department | Care Team | Description | +--------+ + + + + | 06/07/ | Hospital | [facility] | | | | 1991 - | Encounter | MED CTR GENERIC OP | | | | | | CONV DEPT [address] | | | | 10/07/ | | [place], | | | | 1991 | | [place] [address] | | | | | | [phone] | | | +--------+ + + + [...] [place] | | | | | | [address] | | | | | | | | +--------+---------+ + + + documented as of this encounter Visit Diagnoses Not on filedocumented in this encounter"
--- OUTSIDE RECORDS SUMMARY | ~2019-10-23 | XMS | Encounter Summary ---
Demographics + + + | Address | [address] | | | [place] [address] | + + + | Home Phone [...] [place] | | | | | [address] | | + + + + + Care Team Providers + +------+ + | Care Tank Truck Loader Name | Role | Phone | + +------+ + | Adriano Patrick MD | PCP | | + +------+ + Encounter Details +--------+ + + + + | Date | Type | Department | Care Team | Description | +--------+ + + + + | 06/10/ | Abstract | [facility] | Thierry Fry | | | 2014 | | MEDICINE [address] | MD Lisa [address] | | | | | [address] [place] | [address] | | | | | [place] [address] | [address] | | | | | [phone] | | | +--------+ + + + [...] | | | | | [place] | | | | | | [address] | | | | | | | [...]
--- OUTSIDE RECORDS SUMMARY | ~2019-10-23 | XMS | Encounter Summary ---
Demographics + + + | Address | [address] | | | [place] [address] | + + + | Home Phone [...] [place] | | | | | [address] | | + + + + + Care Team Providers + +------+ + | Care Wine Master Name | Role | Phone | + +------+ + | Adriano Patrick MD | PCP | | + +------+ + Encounter Details +--------+ + + + + | Date | Type | Department | Care Team | Description | +--------+ + + + + | 05/16/ | Orders Only | [facility] | Provider, | | | 2018 | | SYSTEM GENERIC OP | MD [address] | | | | | CONVERSION [address] | [address] | | | | | [address] [place], [place] | [place] [address] | | | | | [address] | | | | | | [phone] | | | +--------+ + + + [...] | | | | | [place], [place] | | | | | | [address] | | | | | | | | +--------+---------+ + + + documented as of this encounter Visit Diagnoses Not on filedocumented in this encounter"
--- OUTSIDE RECORDS SUMMARY | ~2019-10-23 | XMS | Encounter Summary ---
Demographics + + + | Address | [address] | | | [place] [address] | + + + | Home Phone [...] [place], [place] | | | | | [address] | | + + + + + Care Team Providers + +------+ + | Care Aircraft Worker Name | Role | Phone | [...] [place] | | | | | | [address] | | | | | | [phone] | | | +--------+ + + + [...] | | | | | [place] | | | | | | [address] | | | | | | | | +--------+---------+ + + + documented as of this encounter Visit Diagnoses Not on filedocumented in this encounter"
--- OUTSIDE RECORDS SUMMARY | ~2019-10-23 | XMS | Encounter Summary ---
Demographics + + + | Address | [address] | | | [place] [address] | + + + | Home Phone [...] [place] | | | | | [address] | | + + + + + Care Team Providers + +------+ + | Care Weigher And Grader Name | Role | Phone | [...] + + | 08/16/ | Telephone | [facility] | Ashley Chávez | Other (Called to | | 2018 | | CARDIOLOGY [place] | Pollo, Supervisor Metal Placing | tell patient what | | | | [address] | | Nicholas said. ) | | | | [address] | | | | | | [place] | | | | | | [address] | | | | | | [phone] | | | +--------+ + + + [...] [place] | | | | | | [address] | | | | | | | | +--------+---------+ + + + documented as of this encounter Visit Diagnoses Not on filedocumented in this encounter"
--- OUTSIDE RECORDS SUMMARY | ~2019-10-23 | XMS | Encounter Summary ---
Demographics + + + | Address | [address] | | | [place] [address] | + + + | Home Phone [...] [place] | | | | | [address] | | + + + + + Care Team Providers + +------+ + | Care Linseed Oil Refiner Name | Role | Phone | [...] | | | spondylolist | | [address] [place] | | | | | hesis | | [place], | | | | | Spinal | | [place] [address] | | | | | stenosis, | | Phone: | | | | | lumbar | | [phone] | | | | | region, | | Fax: | | | | | without | | [phone] | | | | | neurogenic | [...] + + | 07/02/ | Hospital | [facility] | Frandy Teresa, | Spinal stenosis, | | 2013 | Encounter | MED CTR XRAY [address] | DO [address] | lumbar region, | | | | [place] | [address] [place], [place] | without neurogenic | | | | [place] [address] | [address] | claudication | | | | [phone] | | (Primary Dx) | +--------+ + [...] [place] | | | | | | [address] | | | | | | | [...]
--- OUTSIDE RECORDS SUMMARY | ~2019-10-23 | XMS | Encounter Summary ---
Demographics + + + | Address | [address] | | | [place] [address] | + + + | Home Phone [...] [place] | | | | | [address] | | + + + + + Care Team Providers + +------+ + | Care Blocking Machine Operator Second Name | Role | Phone | + [...] [place] | | | | | | [address] | | | | | | [phone] | | | +--------+ + + + [...] documented as of this encounter Progress Notes aKtharine Moncada, Technologist - 09/10/2019 10:47 AM PSTReceived [...] [place] | | | | | | [address] | | | | | | | | +--------+---------+ + + + documented as of this encounter Visit Diagnoses Not on filedocumented in this encounter"
--- OUTSIDE RECORDS SUMMARY | ~2019-10-23 | XMS | Encounter Summary ---
Demographics + + + | Address | [address] | | | [place] [address] | + + + | Home Phone [...] [place] | | | | | [address] | | + + + + + Care Team Providers + +------+ + | Care Salvationist Name | Role | Phone | + +------+ + | Natalee Andersen NP | PCP | | + +------+ + Encounter Details +--------+ + + + + | Date | Type | Department | Care Team | Description | +--------+ + + + + | 07/25/ | Hospital | [facility] | Frandy Teresa, | Status post lumbar | | 2014 | Encounter | MED CTR XRAY [address] | DO [address] | spinal fusion | | | | [place] | [address] [place], [place] | | | | | [place] [address] | [address] | | | | | [phone] | | | +--------+ + + + [...] + + + +---------+ + + | Ida-3 Fatty | Take 1,000 mg by | [...] [place] | | | | | | [address] | | | | | | | [...] + | MISCELLANEOUS LAB | | | [phone] | + +---------+ + + | MISCELANIOUS LAB | | | [phone] | + +---------+ + + documented in this encounter Visit Diagnoses + + | Diagnosis | + + | Status post lumbar spinal fusion Arthrodesis status | + + documented in this encounter"
--- OUTSIDE RECORDS SUMMARY | ~2019-10-23 | XMS | Encounter Summary ---
Demographics + + + | Address | [address] | | | [place] [address] | + + + | Home Phone [...] [place] | | | | | [address] | | + + + + + Care Team Providers + +------+ + | Care Memory Care Program Director Name | Role | Phone [...] [address] | | | | | | [place], [place] | | | | | | [address] | | | +--------+ + + + [...]
--- OUTSIDE RECORDS SUMMARY | ~2019-10-23 | XMS | Encounter Summary ---
Demographics + + + | Address | [address] | | | [place] [address] | + + + | Home Phone [...] [place] | | | | | [address] | | + + + + + Care Team Providers + +------+ + | Care Laundromat Manager Name | Role | Phone | + +------+ + | Natalee Andersen NP | PCP | | + +------+ + Encounter Details +--------+ + + + + | Date | Type | Department | Care Team | Description | +--------+ + + + + | 06/25/ | Hospital | [facility] | Latricia Feliciano | | | 2014 | Encounter | MED CTR ACUTE | D, PT [address] | | | | | PHYSICAL THERAPY | [place] | | | | | [address] | [address] | | | | | [place] [address] | | | | | | [phone] | | | +--------+ + + + [...] + + + +---------+ + + | Heuvelton-3 Fatty | Take 1,000 mg by | [...] [place] | | | | | | [address] | | | | | | | | +--------+---------+ + + + documented as of this encounter Visit Diagnoses Not on filedocumented in this encounter"
--- OUTSIDE RECORDS SUMMARY | ~2019-10-23 | XMS | Encounter Summary ---
Demographics + + + | Address | [address] | | | [place] [address] | + + + | Home Phone [...] [place], [place] | | | | | [address] | | + + + + + Care Team Providers + +------+ + | Care Communications Field Technician Name | Role | Phone | + +------+ + PCP | Unavailable | + +------+ + Encounter Details +--------+ + + + + | Date | Type | Department | Care Team | Description | +--------+ + + + + | 10/29/ | Hospital | [facility] | | | | 1994 | Encounter | MED CTR LABORATORY | | | | | | [address] | | | | | | [place] | | | | | | [address] | | | | | | [phone] | | | +--------+ + + + [...] | | | | | [place] | | | | | | [address] | | | | | | | | +--------+---------+ + + + documented as of this encounter Visit Diagnoses Not on filedocumented in this encounter"
--- OUTSIDE RECORDS SUMMARY | ~2019-10-23 | XMS | Encounter Summary ---
Demographics + + + | Address | [address] | | | [place] [address] | + + + | Home Phone [...] [place] | | | | | [address] | | + + + + + Care Team Providers + +------+ + | Care Bone Cooking Operator Name | Role | Phone | [...] [place] | | | | | | [address] | | | | | | [phone] | | | +--------+ + + + [...] [place] | | | | | | [address] | | | | | | | | +--------+---------+ + + + documented as of this encounter Visit Diagnoses Not on filedocumented in this encounter"
--- OUTSIDE RECORDS SUMMARY | ~2019-10-23 | XMS | Encounter Summary ---
Demographics + + + | Address | [address] | | | [place] [address] | + + + | Home Phone [...] [place], [place] | | | | | [address] | | + + + + + Care Team Providers + +------+ + | Care Medical Record Transcriber Name | Role | Phone | + +------+ + PCP | Unavailable | + +------+ + Encounter Details +--------+ + + + + | Date | Type | Department | Care Team | Description | +--------+ + + + + | 03/26/ | Hospital | [facility] | | | | 2001 | Encounter | MED CTR LABORATORY | | | | | | [address] | | | | | | [place] | | | | | | [address] | | | | | | [phone] | | | +--------+ + + + [...] | | | | [place] | | | | | | [address] | | | | | | | | +--------+---------+ + + + documented as of this encounter Visit Diagnoses Not on filedocumented in this encounter"
--- OUTSIDE RECORDS SUMMARY | ~2019-10-23 | XMS | Encounter Summary ---
Demographics + + + | Address | [address] | | | [place] [address] | + + + | Home Phone [...] [place] | | | | | [address] | | + + + + + Care Team Providers + +------+ + | Care Hand Glass Cutter Name | Role | Phone | + +------+ + | Natalee Andersen NP | PCP | | + +------+ + Encounter Details +--------+ + + + + | Date | Type | Department | Care Team | Description | +--------+ + + + + | 06/25/ | Hospital | [facility] | Frandy Teresa, | Acquired | | 2014 | Encounter | MED CTR XRAY [address] | DO [address] | spondylolisthesis | | | | [place] | [address] [place], [place] | | | | | [place] [address] | [address] | | | | | [phone] | | | +--------+ + + + [...] + + + +---------+ + + | Leroy-3 Fatty | Take 1,000 mg by | [...] [place] | | | | | | [address] | | | | | | | | +--------+---------+ + + + documented as of this encounter Visit Diagnoses + + | Diagnosis | + + | Acquired spondylolisthesis | + + documented in this encounter"
--- OUTSIDE RECORDS SUMMARY | ~2019-10-23 | XMS | Encounter Summary ---
Demographics + + + | Address | [address] | | | [place] [address] | + + + | Home Phone [...] [place] | | | | | [address] | | + + + + + Care Team Providers + +------+ + | Care Sterile Products Processor Name | Role | Phone | + +------+ + | Adriano Patrick MD | PCP | | + +------+ + Encounter Details +--------+ + + + + | Date | Type | Department | Care Team | Description | +--------+ + + + + | 06/10/ | Abstract | [facility] | Thierry Fry | | | 2014 | | MEDICINE [address] | MD Lisa [address] | | | | | Street [place] | [address] | | | | | [place] [address] | [address] | | | | | [phone] | | | +--------+ + + + [...] | | | | | [place] | | | | | | [address] | | | | | | | [...]
--- OUTSIDE RECORDS SUMMARY | ~2019-10-23 | XMS | Encounter Summary ---
Demographics + + + | Address | [address] | | | [place] [address] | + + + | Home Phone [...] [place], [place] | | | | | [address] | | + + + + + Care Team Providers + +------+ + | Care Luncheonette Manager Name | Role | Phone | [...] [place] | | | | | | [address] | | | | | | [phone] | | | +--------+ + + + [...] | | | | | [place] | | | | | | [address] | | | | | | | | +--------+---------+ + + + documented as of this encounter Visit Diagnoses Not on filedocumented in this encounter"
--- OUTSIDE RECORDS SUMMARY | ~2019-10-23 | XMS | Encounter Summary ---
Demographics + + + | Address | [address] | | | [place] [address] | + + + | Home Phone [...] [place] | | | | | [address] | | + + + + + Care Team Providers + +------+ + | Care Data Quality Consultant Name | Role | Phone | [...] [place] | | | | | | [address] | | | | | | [phone] | | | +--------+ + + + [...] [place] | | | | | | [address] | | | | | | | | +--------+---------+ + + + documented as of this encounter Visit Diagnoses Not on filedocumented in this encounter"
--- OUTSIDE RECORDS SUMMARY | ~2019-10-23 | XMS | Encounter Summary ---
Demographics + + + | Address | [address] | | | [place] [address] | + + + | Home Phone [...] [place] | | | | | [address] | | + + + + + Care Team Providers + +------+ + | Care Assistant Engineer Name | Role | Phone | + +------+ + | Basim Bolanos MD | PCP | | + +------+ + Encounter Details +--------+ + + + + | Date | Type | Department | Care Team | Description | +--------+ + + + + | 04/18/ | Abstract | [facility] [place] | [facility], | | | 2012 | | GASTROENTEROLOGY | FORTUNATO [address] | | | | | [address] [place] | [place], [address] | | | | | [address] [place], [place] | [place], [place] | | | | | [address] | [address] | | | | | [phone] | | | +--------+ + + + [...] | | | | | [place] | | | | | | [address] | | | | | | | | +--------+---------+ + + + documented as of this encounter Visit Diagnoses Not on filedocumented in this encounter"
--- OUTSIDE RECORDS SUMMARY | ~2019-10-23 | XMS | Encounter Summary ---
Demographics + + + | Address | [address] | | | [place] [address] | + + + | Home Phone [...] [place] | | | | | [address] | | + + + + + [...] + + | 03/04/ | Telephone | [facility] | Baudilio Newman | Other (Plavix) | | 2014 | | NEUROLOGY LAURIE | MD Pollo Need updated | | | | | [address], | address | | | | | [address] [place] | | | | | | [place] [address] | | | | | | [phone] | | | +--------+ + + + [...] [place] | | | | | | [address] | | | | | | | | +--------+---------+ + + + documented as of this encounter Visit Diagnoses Not on filedocumented in this encounter"
--- OUTSIDE RECORDS SUMMARY | ~2019-10-23 | XMS | Encounter Summary ---
Demographics + + + | Address | [address] | | | [place] [address] | + + + | Home Phone [...] [place] | | | | | [address] | | + + + + + Care Team Providers + +------+ + | Care Reverberatory Furnace Operator Name | Role | Phone [...] | Services | ogy | Epigastric | [facility], | Tyrese Shelley MD | | | Required | | abdominal | [place], | [address] [place], | | | | | pain GERD | REHAB THERAPIST [address] | [address] | | | | | (gastroesoph | [place], [place] | [place], | | | | | ageal reflux | [address] [place] | [place] [address] | | | | | disease) | [place], [place] | Phone: | | | | | Fatty liver | [address] | [phone] | | | | | DM | Phone: | Fax: | | | | | (diabetes | [phone] | [phone] | | | | | mellitus) | Fax: | | | | | | (HCC) | [phone] | | +--------+ + + + + [...] | Office | [facility] | [facility], | Epigastric abdominal | | 2012 | Visit | GASTROENTEROLOGY | FORTUNATO Thomas [address] | pain (Primary Dx); | | | | [address] [place] | [place], [address] | GERD | | | | [address] [place], [place] | [place], [place] | (gastroesophageal | | | | [address] | [address] | reflux disease); | | | | [phone] | | Fatty liver; DM | | [...] years ago by Dr. Saravanan Tsai, in [facility]. Colonoscopy was done 05/[address] Hamlin in [facility]. Allergies Allergen Reactions Demerol Duloxetine Erythromycin Fluoxetine [...] | | | | | [place], [place] | | | | | | [id number] | | | | | | | [...]
--- OUTSIDE RECORDS SUMMARY | ~2019-10-23 | XMS | Encounter Summary ---
Demographics + + + | Address | [address] | | | [place] [address] | + + + | Home Phone [...] [place] | | | | | [address] | | + + + + + Care Team Providers + +------+ + | Care Paper Folder Name | Role | Phone | + [...] | | | | | mellitus, | [address] | [place] | | | | | controlled | Phone: | [address] | | | | | (HCC) | [phone] | Phone: | | | | | History of | Fax: | [phone] | | | | | gastric | [phone] | Fax: | | | | | restrictive | | [phone] | | | | | surgery | [...] | Required | | hypertension | [address] [facility] | | | | | Lumbar | AVE [place] | [address] | | | | | radiculopath | [place], [place] | AVE | | | | | y Type 2 | [address] | [place] | | | | | diabetes | Phone: | [address] | | | | | mellitus, | [phone] | Phone: | | | | | controlled | Fax: | [phone] | | | | | (HCC) | [phone] | Fax: | | | | | Obesity, | | [phone] | | | | | Class III, [...] | | FORTUNATO & Katharine BUCIO in [place]. | + + + | Other | [...] + + | 03/06/ | Office | [facility] | Katharine Cardona PA-C | Hypothyroidism due | | 2014 | Visit | MEDICINE [address] | [address] [facility] | to acquired atrophy | | | | Street [place] | [place] [address] | of thyroid (Primary | | | | [place] [address] | [phone] | Dx); Essential | | | | [phone] | | hypertension; Iron | | | [...] Stroke | | | | | | ([facility]); Environmental | | | | | | [...] | | | obesity) ([facility]); | | | | | | Type 2 diabetes | | | | | | mellitus, controlled | | | | | | ([facility]); Preventative | | | | | | [...] t be different from the original. Ask [email or web address] if they think it might be helpful [...] Cont your meds as prescribed. F/U with [email or web address] as scheduled Neuropathy Continue gabapentin. May consider increase if pain is not controlled. May benefit from switching from Paxil to one of the SNRIs or TCAs for analgesic effects, holly manju, she is doing so well on her current regimen it may not be worth making any changes an d find alternate ways to deal with the pain. Would be worth discussing with [email or web address] Psych Back Pain Will refer to water therapy (aqua fitness) at [facility] as request ed. [...] Colonoscopy procedures 4. Schizoaffective disorder, bipolar type ([facility]) 5. Neuropathy Vitamin B-12 6. BACK PAIN, LUMBAR, WITH RADICULOPATHY Ambulatory referral to Physical Therapy 7. ROGERS on CPAP 8. Stroke ([facility]) 9. Environmental and seasonal allergies fluticasone (FLONASE) 50 mcg/nasal spray 10. Gastroesophageal reflux disease without esophagitis dexlansoprazole (DEXILANT) 60 mg D R capsule 11. History of gastric restrictive surgery Vitamin D, 25-Hydroxy Nutrition Services - External - AMB Referral 12. Obesity, Class III, BMI 40-49.9 (morbid obesity) ([facility]) Ambulatory referral to Physical Therapy Nutrition Services - External - AMB Referral 13. Type 2 diabetes mellitus, controlled ([facility]) Ambulatory referral to Physical Therapy Nutrition Services [...] Cont your meds as prescribed. F/U with [email or web address] as scheduled Neuropathy Continue gabapentin. May consider [...] the pain. Would be worth discussing with [email or web address] professional. Back Pain Will refer to water therapy (aqua fitness) at [facility] as request ed. Cont home exercise, stretching, [...] plan. The above note was dictated using [employer] voice recognition software. It may have not been proofread in entirety. Minor errors in grammar may occur. CHIEF COMPLAINT Chief Complaint Patient presents with [facility] Presents to establish care. Former patient of [facility] in [place]. Other Possible stroke January 2015. Is now [...] auditory, at 36. 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 She is now very well controlled on Saphris, Depakote, and Paxi l. She is followed by [facility] in [place]. She has DM2 that is well controlled [...] worked up by steve rowe, Dr [place], [place]. More recently, she presented to ED with [...] Laterality: N/A; Surgeon: Frandy castellanos DO; Location: [facility] MAIN OR SOCIAL HISTORY History Social History [...] mg by mouth Daily. Cholecalciferol (VITAMIN D-3) 34048 units CAPS Oral Take 50,000 Units by [...] Oral Take 10 mg by mouth nightly. Keiser-3 Fatty Acids (FISH OIL CONCENTRATE) 1000 MG [...] [place] | | | | | | [address] | | | | | | | [...] | | | | | | controlled ([facility]) | | | | | | Obesity, Class III, | | | | | | BMI 40-49.9 (morbid | | | | | | obesity) ([facility]) | | + + +--------+ + + | Nutrition Services - | Outpatient | Routin | Iron deficiency | Ordered: 03/06/2015 | | External - AMB | Referral | e | anemia Type 2 | | | Referral | | | diabetes mellitus, | | | | | | controlled ([facility]) | | | | | | History of gastric | | | | | | restrictive surgery | | | | | | Obesity, Class III, | | | | | | BMI 40-49.9 (morbid | | | | | | obesity) ([facility]) | | + + +--------+ + + [...] 12 | 7 - 18 mg/dL | [facility] | | | | | | [facility] | | | | | | [facility] | | | | | | [facility] - | | | | | | LABORATORY | | + + + + + + | Creatinine | 0.66 | 0.60 - 1.30 | [facility] | | | | | mg/dL | [facility] | | | | | | [facility]ICAL | | | | | | CENTER - | | | | | | LABORATORY | | + + + + + + | eGFR if not | >60Comment: GLOMERULAR | >=60 | [facility] | | | | FILTRATION | mL/min/1.73m2 | [facility] | | | [facility] | RATE,ESTIMATED | | MEDICAL | | | | mL/min/1.77i9Eryb than | | CENTER - | | [...] [address] | [place] | [phone] | | [facility] | | [address] | | | - LABORATORY | | [...] + | Type 2 diabetes mellitus, controlled ([facility]) Type II or unspecified type diabetes | | mellitus without mention of complication, not stated as uncontrolled | + + | Preventative health care Routine general medical examination at a health care | | facility | + + documented in this encounter
--- OUTSIDE RECORDS SUMMARY | ~2019-10-23 | XMS | Encounter Summary ---
Demographics + + + | Address | [address] | | | [place] [address] | + + + | Home Phone [...] [place], [place] | | | | | [address] | | + + + + + Care Team Providers + +------+ + | Care Automation And Controls Manager Name | Role | Phone | + +------+ + PCP | Unavailable | + +------+ + Encounter Details +--------+ + + + + | Date | Type | Department | Care Team | Description | +--------+ + + + + | 02/24/ | Hospital | [facility] | | | | 1997 | Encounter | MED CTR EMERGENCY | | | | | | [address] | | | | | | [place] | | | | | | [address] | | | | | | [phone] | | | +--------+ + + + [...] | | | | | [place] | | | | | | [address] | | | | | | | | +--------+---------+ + + + documented as of this encounter Visit Diagnoses Not on filedocumented in this encounter"
--- OUTSIDE RECORDS SUMMARY | ~2019-10-23 | XMS | Encounter Summary ---
Demographics + + + | Address | [address] | | | [place] [address] | + + + | Home Phone [...] [place] | | | | | [address] | | + + + + + Care Team Providers + +------+ + | Care Cash Posting Representative Name | Role | Phone | + +------+ + | Natalee Andersen NP | PCP | | + +------+ + Encounter Details +--------+---------+ + + + | Date | Type | Department | Care Team | Description | +--------+---------+ + + + | 06/25/ | Surgery | [facility] | Frandy Teresa, | Canceled | | 2013 | | MED CTR OR INTRA OP | DO [address] | PROCEDURE NOT | | | | [address] | [address] [place], [place] | PERFORMED | | | | [place], [place] | [address] | | | | | [address] | | | | | | [phone] | | | +--------+---------+ + + + [...] + + +---------+ + + | [place]-3 Fatty | Take 1,000 mg by | [...] | | | | [place], [place] | | | | | | [id number] | | | | | | | [...] mL/min/1.73m2 | [facility] | | | SERBIAN | RATE,ESTIMATED | | MEDICAL | | | | mL/min/1.05x2Olee than | | CENTER - | | [...] + | [facility] | [address] | [place] | [phone] | | [facility] | | [address] | | | - LABORATORY | | | | + + + + + | [facility] | [address] | [place] | | | [facility] | | [address] | | | - LABORATORY | | [...] + | [facility] | [address] | [place] | [phone] | | [facility] | | [address] | | | - LABORATORY | | | | + + + + + | [facility] | [address] | [place] | | | [facility] | | [address] | | | - LABORATORY | | [...] [address] | [place] | [phone] | | [facility] | | [address] | | | - LABORATORY | | | | + + + + + | [facility] | [address] | [place], [place] | | | [facility] | | [address] | | | - LABORATORY | | [...] | [facility] | | [address] | | | - BLOOD BANK | [...] | + + + + + | [facility] | [address] | [place], [place] | [phone] | | [facility] | | [address] | | | - LABORATORY | | | | + + + + + | [facility] | [address] | [place], [place] | | | [facility] | | [address] | | | - LABORATORY | | [...]
--- OUTSIDE RECORDS SUMMARY | ~2019-10-23 | XMS | Encounter Summary ---
Demographics + + + | Address | [address] | | | [place] [address] | + + + | Home Phone [...] [place] | | | | | [address] | | + + + + + Care Team Providers + +------+ + | Care Skin Diver Name | Role | Phone | + [...] | | | | | | | [address] | | | | | | | Phone: | | | | | | | [phone] | | | | | | | Fax: | | | | | | | [phone] | | +--------+ + + + + + Reason for Visit + + + | Reason | Comments | + + + | Follow-up | 3 mo po | + + + Encounter Details +--------+---------+ + + + | Date | Type | Department | Care Team | Description | +--------+---------+ + + + | 09/27/ | Office | [facility] | Frandy Teresa, | Lumbar spondylosis | | 2013 | Visit | NEUROSURGERY [address] | DO [address] | (Primary Dx); S/P | | | | [address] | [address] [place], [place] | lumbar fusion | | | | [place], [place] | [address] | | | | | [address] | | | | | | [phone] | | | +--------+---------+ + + + [...] Teresa DO [address] [place] [address] FAX: NEUROSURGERY FOLLOW-UP CHIEF COMPLAINT: Chief Complaint [...] Take 15 mg by mouth nightl y. [place]-3 Fatty Acids (FISH OIL CONCENTRATE) 1000 MG [...] | | | | | [place], [place] | | | | | | [address] | | | | | | | [...]
--- OUTSIDE RECORDS SUMMARY | ~2019-10-23 | XMS | Encounter Summary ---
Demographics + + + | Address | [address] | | | [place] [address] | + + + | Home Phone [...] [place] | | | | | [address] | | + + + + + Care Team Providers + +------+ + | Care Truck Packer Name | Role | Phone | [...] + + | 08/13/ | Documentati | [facility] | Katharine Moncada, | Other (urgent | | 2019 | on | CARDIOLOGY [place] | Technologist | report) | | | | [address] | | | | | | [place] | | | | | | [address] | | | | | | [phone] | | | +--------+ + + + [...] [place] | | | | | | [address] | | | | | | | | +--------+---------+ + + + documented as of this encounter Visit Diagnoses Not on filedocumented in this encounter"
--- OUTSIDE RECORDS SUMMARY | ~2019-10-23 | XMS | Encounter Summary ---
Demographics + + + | Address | [address] | | | [place] [address] | + + + | Home Phone [...] [place], [place] | | | | | [address] | | + + + + + Care Team Providers + +------+ + | Care Educational Manager Name | Role | Phone | + +------+ + PCP | Unavailable | + +------+ + Encounter Details +--------+ + + + + | Date | Type | Department | Care Team | Description | +--------+ + + + + | 09/24/ | Hospital | [facility] | | | | 1993 | Encounter | MED CTR LABORATORY | | | | | | [address] | | | | | | [place] | | | | | | [address] | | | | | | [phone] | | | +--------+ + + + [...] | | | | | [place] | | | | | | [address] | | | | | | | | +--------+---------+ + + + documented as of this encounter Visit Diagnoses Not on filedocumented in this encounter"
--- OUTSIDE RECORDS SUMMARY | ~2019-10-23 | XMS | Encounter Summary ---
Demographics + + + | Address | [address] | | | [place] [address] | + + + | Home Phone [...] [place] | | | | | [address] | | + + + + + Care Team Providers + +------+ + | Care Damage Adjuster Name | Role | Phone | [...] | | [address] | [place], [place] | | | | | [place], [place] | [address] | | | | | [address] | | | | | | [phone] | | | +--------+ + + + [...] | | | | | [place] [address] [address] | | | | | | [address] | | | | | | | [...] 0.83 m/s | | | MV Dec [place]: 2.85 m/s2 MV DecT: 282.89 ms MV E Teodoro: 0.80 | | | m/s MV E/A Ratio: 0.96 E/E' Sept: 12.59 E' Lat: 0.08 m/s | | | E' Sept: 0.06 m/s RAP: 10 mmHg RV S': 0.11 m/s RVSP: | | | 27.96 mmHg TR maxP.96 mmHg TR Vmax: 2.11 m/s | | | Temper Mill Roller: Authenticated by: Desiree Peterson MD Report Date/Time: | | | -- [id number]:31:1 | | + + + + + [...] (A-L): 19.60 | | ml/m2LAAs A2C: 15.44 [id number] A-L A2C: 43.84 mlLAESV MOD A2C: 42.12 mlLALs A2C: | | 4.61 cmLAAs A4C: 14.18 [id number] A-L A4C: 38.73 mlLAESV MOD A4C: 37.04 mlLALs A4C: | | 4.41 cmRAAs: 12.15 [id number] A-L: 28.54 mlRAESV MOD: 28.66 mlRALs: 4.39 | | cmTAPSE: 2.42 cmAV Env.Ti: 293.94 msAV maxP.18 mmHgAV meanP.09 mmHgAV | | Vmax: 1.88 m/Eddie Vmean: 1.25 m/Eddie VTI: 36.84 cmAVA Vmax: 2.06 cm2AVA (VTI): | | 2.24 [id number] Vmax: 0.00 cm2/m2AVAI (VTI): 0.00 cm2/m2LVOT Env.Ti: 299.59 msLVOT | | maxP.52 mmHgLVOT meanP.65 mmHgLVSI Dopp: 38.55 ml/m2LVSV Dopp: 82.89 | | mlLVOT Vmax: 1.27 m/sLVOT Vmean: 0.91 m/sLVOT VTI: 27.27 cmMV A Teodoro: 0.83 m/sMV | | Dec [place]: 2.85 m/s2MV DecT: 282.89 msMV E Teod[place]: 0.80 m/sMV E/A Ratio: 0.96E/E' | | Sept: 12.59E' Lat: 0.08 m/sE' Sept: 0.06 m/sRAP: 10 mmHgRV S': 0.11 m/sRVSP: | | 27.96 mmHgTR maxP.96 mmHgTR Vmax: 2.11 m/s Temper Mill Roller:Authenticated by: | | Desiree Peterson MDReport Date/Time: -- [id number]:31:1 IMPRESSION: 1. Overall left | | ventricular [...] A Teodoro: 0.83 m/s | |MV Dec [place]: 2.85 m/s2 | |MV DecT: 282.89 ms | |MV E Te[place]: 0.80 m/s | |MV E/A Ratio: 0.96 | |E/E' Sept: 12.59 | |E' Lat: 0.08 m/s | |E' Sept: 0.06 m/s | |RAP: 10 mmHg | |RV S': 0.11 m/s | |RVSP: 27.96 mmHg | |TR maxP.96 mmHg | |TR Vmax: 2.11 m/s | | | |Temper Mill Roller: | |Authenticated by: Desiree Peterson MD | |Report Date/Time: -- [id number]_7:31:1 | | | |IMPRESSION: | |1. Overall [...]
--- OUTSIDE RECORDS SUMMARY | ~2019-10-23 | XMS | Encounter Summary ---
Demographics + + + | Address | [address] | | | [place] [address] | + + + | Home Phone [...] [place] | | | | | [address] | | + + + + + Care Team Providers + +------+ + | Care Fingernail Sculptor Name | Role | Phone | + [...] [address] | [address] [place], [place] | | | | | [place], [place] | [address] | | | | | [address] | | | | | | [phone] | | | +--------+ + + + [...] + | MISCELLANEOUS LAB | | | [phone] | + +---------+ + + | MISCELANIOUS LAB | | | [phone] | + +---------+ + + documented in this encounter Visit Diagnoses + + | Diagnosis | + + | Back pain - Primary Backache, unspecified | + + documented in this encounter"
--- OUTSIDE RECORDS SUMMARY | ~2019-10-23 | XMS | Encounter Summary ---
Demographics + + + | Address | [address] | | | [place] [address] | + + + | Home Phone [...] [place], [place] | | | | | [address] | | + + + + + Care Team Providers + +------+ + | Care Lettuce Trimmer Name | Role | Phone | + +------+ + PCP | Unavailable | + +------+ + Encounter Details +--------+ + + + + | Date | Type | Department | Care Team | Description | +--------+ + + + + | 02/02/ | Hospital | [facility] | | | | 1997 - | Encounter | MED CTR GENERIC PSY | | | | | | CONV DEPT [address] | | | | 02/05/ | | [place], | | | | 1997 | | [place] [address] | | | | | | [phone] | | | +--------+ + + + [...] [place] | | | | | | [address] | | | | | | | | +--------+---------+ + + + documented as of this encounter Visit Diagnoses Not on filedocumented in this encounter"
--- OUTSIDE RECORDS SUMMARY | ~2019-10-23 | XMS | Encounter Summary ---
Demographics + + + | Address | [address] | | | [place] [address] | + + + | Home Phone [...] [place] | | | | | [address] | | + + + + + Care Team Providers + +------+ + | Care Cake Stripper Name | Role | Phone | [...] + | 06/27/ | Office | [facility] | Yecenia Richardson, | Hypertension, | | 2019 | Visit | CARDIOLOGY [place] | MD Nitin RODRIGUES | unspecified type | | | | [address] | [place], [place] | (Primary Dx); | | | | KEV SCHAFER [facility] | [address] | Bradycardia | | | | [place] | | | | | | [address] | | | | | | [phone] | | | +--------+---------+ + + + [...] + documented in this encounter Progress Notes Yecneia Richardson MD - 06/27/2019 12:45 PM PDTFormatting of this note might be different f rom the original. Date of visit: 06/27/2019 Primary Care Physician: Adriano Patrick MD CHIEF COMPLAINT: Chief Complaint Patient presents with Other Hospital sent patient to us, passed out in bathroom HISTORY OF PRESENT ILLNESS: Cindy is 63 y.o. here for evaluation on urgent basis. Had an appointment today in [facility]. She has been feeling dizzy as [...] Take by mouth. Blood Glucose Monitoring Suppl ([employer] VERIO FLEX SYSTEM) w/Device KIT by Does [...] mg by mouth Daily. Cholecalciferol (VITAMIN D-3) [address]805 units CAPS Take 50,000 Units by mouth [...] tablet Take 10 mg by mouth nightly. [place]-3 Fatty Acids (FISH OIL CONCENTRATE) 1000 [...] | | | | | [place], [place] | | | | | | [address] | | | | | | | [...]
--- OUTSIDE RECORDS SUMMARY | ~2019-10-23 | XMS | Encounter Summary ---
Demographics + + + | Address | [address] | | | [place] [address] | + + + | Home Phone [...] [place] | | | | | [address] | | + + + + + Care Team Providers + +------+ + | Care Boiler Shop Supervisor Name | Role | Phone | + +------+ + | Natalee Andersen NP | PCP | | + +------+ + Encounter Details +--------+ + + + + | Date | Type | Department | Care Team | Description | +--------+ + + + + | 06/25/ | Hospital | [facility] | Frandy Teresa, | Diabetes mellitus | | 2014 | Encounter | MED CTR OR INTRA OP | DO [address] | (HCC) (Primary Dx) | | | | [address] | [address] [place], [place] | | | | | [place], [place] | [address] | | | | | [address] | | | | | | [phone] | | | +--------+ + + + [...] + + + +---------+ + + | [place]-3 Fatty | Take 1,000 mg by | [...] [place] | | | | | | [id number] | | | | | | | [...] mL/min/1.73m2 | [facility] | | | [place] | RATE,ESTIMATED | | MEDICAL | | | | mL/min/1.64c3Bdxh than | | CENTER - | | [...] + | [facility] | [address] | [place], [place] | [phone] | | [facility] | | [address] | | | - LABORATORY | | | | + + + + + | [facility] | [address] | [place], [place] | | | [facility] | | [address] | | | - LABORATORY | | [...] + | [facility] | [address] | [place] | [phone] | | [facility] | | [address] | | | - LABORATORY | | | | + + + + + | [facility] | [address] | [place], [place] | | | [facility] | | [address] | | | - LABORATORY | | [...] [address] | [place] | [phone] | | [facility] | | [address] | | | - LABORATORY | | | | + + + + + | [facility] | [address] | [place] | | | [facility] | | [address] | | | - LABORATORY | | [...] [facility] | | [address] | | | - BLOOD BANK | [...] + | [facility] | [address] | [place] | [phone] | | [facility] | | [address] | | | - LABORATORY | | | | + + + + + | [facility] | [address] | [place], [place] | | | [facility] | | [address] | | | - LABORATORY | | [...]
--- OUTSIDE RECORDS SUMMARY | ~2019-10-23 | XMS | Encounter Summary ---
Demographics + + + | Address | [address] | | | [place] [address] | + + + | Home Phone [...] [place] | | | | | [address] | | + + + + + Care Team Providers + +------+ + | Care Development Specialist Name | Role | Phone | + +------+ + | Thierry Fry MD | PCP | | + +------+ + Encounter Details +--------+ + + + + | Date | Type | Department | Care Team | Description | +--------+ + + + + | 03/06/ | Hospital | [facility] | Katharine Cardona PA-C | Essential | | 2015 | Encounter | MED CTR LABORATORY | [address] | hypertension | | | | [address] [place] | [place] [address] | | | | | [place], [place] | [phone] | | | | | [address] | | | | | | [phone] | | | +--------+ + + + [...] 0 | | | | (VITAMIN D-3) [address] | mouth Once a week. | | [...] | | | | | [place] | | | | | | [address] | | | | | | | [...] mL/min/1.73m2 | [facility] | | | [place] | RATE,ESTIMATED | | MEDICAL | | | | mL/min/1.84q1Dsow than | | CENTER - | | [...] | 8.3 - 10.5 | [facility] | | | | | mg/dL | [facility] | | | | | | MEDICAL | | | | | | CENTER - | | | | | | LABORATORY | | + + + + + + | Albumin | 4.1 | 3.2 - 5.0 g/dL | [facility] | | | | | | [facility] | | | | | | [...] [address] | [place] | [phone] | | [facility] | | [address] | | | - LABORATORY | | | | + + + + + documented in this encounter Visit Diagnoses + + | Diagnosis | + + | Essential hypertension Unspecified essential hypertension | + + documented in this encounter"
--- OUTSIDE RECORDS SUMMARY | ~2019-10-23 | XMS | Encounter Summary ---
Demographics + + + | Address | [address] | | | [place] [address] | + + + | Home Phone [...] [place] | | | | | [address] | | + + + + + Care Team Providers + +------+ + | Care Pizza Hut Assistant Name | Role | Phone | [...] + + | 01/02/ | Telephone | [facility] | Frandy Teresa, | Other (6m x-ray ) | | 2014 | | NEUROSURGERY [address] | DO [address] | | | | | [address] | [address] [place], [place] | | | | | [place], [place] | [id number] | | | | | [address] | | | | | | [phone] | | | +--------+ + + + [...] [place] | | | | | | [address] | | | | | | | | +--------+---------+ + + + documented as of this encounter Visit Diagnoses Not on filedocumented in this encounter"
--- OUTSIDE RECORDS SUMMARY | ~2019-10-23 | XMS | Encounter Summary ---
Demographics + + + | Address | [address] | | | [place] [address] | + + + | Home Phone [...] [place] | | | | | [address] | | + + + + + Care Team Providers + +------+ + | Care Floor Space Allocator Name | Role | Phone | + [...] + + | 04/05/ | Telephone | [facility] [place] | [facility], | Results | | 2012 | | GASTROENTEROLOGY | [place]O [address] | | | | | [address] [place] | [place], [address] | | | | | [address] [place], [place] | [place], [place] | | | | | [address] | [address] | | | | | [phone] | | | +--------+ + + + [...] [place] | | | | | | [address] | | | | | | | | +--------+---------+ + + + documented as of this encounter Visit Diagnoses Not on filedocumented in this encounter"
--- OUTSIDE RECORDS SUMMARY | ~2019-10-23 | XMS | Encounter Summary ---
Demographics + + + | Address | [address] | | | [place] [address] | + + + | Home Phone [...] [place] | | | | | [address] | | + + + + + Care Team Providers + +------+ + | Care Orthopaedic Surgeon Name | Role | Phone | [...] + + | 08/09/ | Documentati | [facility] | Katharine Moncada, | Other (end of study) | | 2019 | on | CARDIOLOGY [place] | Technologist | | | | | [address] | | | | | | [place], [place] | | | | | | [address] | | | | | | [phone] | | | +--------+ + + + [...] Technologist - 08/09/2019 11:59 PM PDT Cardiac Nutritional Services Host Date of Event Monitor: 08/09/19 Referring Physician: [...] [place] | | | | | | [address] | | | | | | | | +--------+---------+ + + + documented as of this encounter Visit Diagnoses Not on filedocumented in this encounter"
--- OUTSIDE RECORDS SUMMARY | ~2019-10-23 | XMS | Encounter Summary ---
Demographics + + + | Address | [address] | | | [place] [address] | + + + | Home Phone [...] [place], [place] | | | | | [address] | | + + + + + Care Team Providers + +------+ + | Care Retail Maintenance Technician Name | Role | Phone | + +------+ + PCP | Unavailable | + +------+ + Encounter Details +--------+ + + + + | Date | Type | Department | Care Team | Description | +--------+ + + + + | 02/24/ | Hospital | [facility] | | | | 1997 - | Encounter | MED CTR GENERIC PSY | | | | | | CONV DEPT [address] | | | | 02/26/ | | [place], | | | | 1997 | | [place] [address] | | | | | | [phone] | | | +--------+ + + + [...] [place] | | | | | | [address] | | | | | | | | +--------+---------+ + + + documented as of this encounter Visit Diagnoses Not on filedocumented in this encounter"
--- OUTSIDE RECORDS SUMMARY | ~2019-10-23 | XMS | Encounter Summary ---
Demographics + + + | Address | [address] | | | [place] [address] | + + + | Home Phone [...] [place] | | | | | [address] | | + + + + + Care Team Providers + +------+ + | Care Student Union Consultant Name | Role | Phone | [...] + + | 07/01/ | Telephone | [facility] | Frandy Teresa, | Other (Surgery ) | | 2013 | | NEUROSURGERY [address] | DO [address] | | | | | [address] | [address] [place], [place] | | | | | [place], [place] | [address] | | | | | [address] | | | | | | [phone] | | | +--------+ + + + [...] [place] | | | | | | [address] | | | | | | | | +--------+---------+ + + + documented as of this encounter Visit Diagnoses Not on filedocumented in this encounter"
--- OUTSIDE RECORDS SUMMARY | ~2019-10-23 | XMS | Encounter Summary ---
Demographics + + + | Address | [address] | | | [place] [address] | + + + | Home Phone [...] [place] | | | | | [address] | | + + + + + Care Team Providers + +------+ + | Care Sap Bw Developer Name | Role | Phone | [...] | | [address] | [place], [place] | | | | | [place], [place] | [address] | | | | | [address] | | | | | | [phone] | | | +--------+ + + + [...] | | | | | [place] | | | | | | [address] | | | | | | | [...] 0.83 m/s | | | MV Dec [place]: 2.85 m/s2 MV DecT: 282.89 ms MV E Teodoro: 0.80 | | | m/s MV E/A Ratio: 0.96 E/E' Sept: 12.59 E' Lat: 0.08 m/s | | | E' Sept: 0.06 m/s RAP: 10 mmHg RV S': 0.11 m/s RVSP: | | | 27.96 mmHg TR maxP.96 mmHg TR Vmax: 2.11 m/s | | | Parts Department Manager: Authenticated by: Desiree Peterson MD Report Date/Time: | | | -- [id number]:[id number] | | + + + + + [...] (A-L): 19.60 | | ml/m2LAAs A2C: 15.44 [id number] A-L A2C: 43.84 mlLAESV MOD A2C: 42.12 mlLALs A2C: | | 4.61 cmLAAs A4C: 14.18 if2QVLLE A-L A4C: 38.73 mlLAESV MOD A4C: 37.04 mlLALs A4C: | | 4.41 cmRAAs: 12.15 [id number] A-L: 28.54 mlRAESV MOD: 28.66 mlRALs: 4.39 | | cmTAPSE: 2.42 cmAV Env.Ti: 293.94 msAV maxP.18 mmHgAV meanP.09 mmHgAV | | Vmax: 1.88 m/Eddie Vmean: 1.25 m/Eddie VTI: 36.84 cmAVA Vmax: 2.06 cm2AVA (VTI): | | 2.24 ck0YCTC Vmax: 0.00 cm2/m2AVAI (VTI): 0.00 cm2/m2LVOT Env.Ti: 299.59 msLVOT | | maxP.52 mmHgLVOT meanP.65 mmHgLVSI Dopp: 38.55 ml/m2LVSV Dopp: 82.89 | | mlLVOT Vmax: 1.27 m/sLVOT Vmean: 0.91 m/sLVOT VTI: 27.27 cmMV A [place]: 0.83 m/sMV | | Dec [place]: 2.85 m/s2MV DecT: 282.89 msMV E [place]: 0.80 m/sMV E/A Ratio: 0.96E/E' | | Sept: 12.59E' Lat: 0.08 m/sE' Sept: 0.06 m/sRAP: 10 mmHgRV S': 0.11 m/sRVSP: | | 27.96 mmHgTR maxP.96 mmHgTR Vmax: 2.11 m/s Parts Department Manager:Authenticated by: | | Desiree Peterson MDReport Date/Time: -- [id number]_[id number]_2:31:1 IMPRESSION: 1. Overall left | | ventricular [...] m/s | |AV VTI: 36.84 cm | |UYSUF Vmax: 2.06 cm2 | |YUSUF (VTI): 2.24 [...] A [place]: 0.83 m/s | |MV Dec [place]: 2.85 m/s2 | |MV DecT: 282.89 ms | |MV E [place]: 0.80 m/s | |MV E/A Ratio: 0.96 | |E/E' Sept: 12.59 | |E' Lat: 0.08 m/s | |E' Sept: 0.06 m/s | |RAP: 10 mmHg | |RV S': 0.11 m/s | |RVSP: 27.96 mmHg | |TR maxP.96 mmHg | |TR Vmax: 2.11 m/s | | | |Parts Department Manager: | |Authenticated by: Desiree Peterson MD | |Report Date/Time: -- [id number]:31:1 | | | |IMPRESSION: | |1. Overall [...]
--- OUTSIDE RECORDS SUMMARY | ~2019-10-23 | XMS | Encounter Summary ---
Demographics + + + | Address | [address] | | | [place] [address] | + + + | Home Phone [...] [place] | | | | | [address] | | + + + + + Care Team Providers + +------+ + | Care Client Support Analyst Name | Role | Phone [...] | | | | [address] | [place] [address] | | | | | [place] [address] | [phone] | | | | | [phone] | | | +--------+--------+ + + + [...] [place] | | | | | | [address] | | | | | | | | +--------+---------+ + + + documented as of this encounter Visit Diagnoses + + | Diagnosis | + + | Essential hypertension - Primary Unspecified essential hypertension | + + documented in this encounter"
--- OUTSIDE RECORDS SUMMARY | ~2019-10-23 | XMS | Clinical Summary ---
Demographics + + + | Address | [address] [facility] [address] | | | [place] [address] | + + + | Home Phone [...] [address] | | | | | [place] | | | | | [address] | | + + + + + Care Team Providers + +------+ + | Care Iron Guardrail Installer Name | Role | Phone | + +------+ + PCP | Unavailable | + +------+ + Source Comments EDWARD is fully live on both [facility] Ambulatory and [facility] InPatient.[facility] Allergies Not on File Medications Not [...] | MEDICA | xxxxxxxxxx | 02/22/20 | [phone] | [address] | Medica | | | RE A & | | 15-Pre | 1 | [address] | re | | | B | | sent | | [place] | | | | | | | | [address] | | + +--------+ +--------+ + +--------+ [...] Self | [birth year] | | [address] | | | al/Fam | | 1955 | [phone] | [address] [place] | | | devonte | | | 5 (Home) | [address] | + +--------+ +--------+ + +"
--- OUTSIDE RECORDS SUMMARY | ~2019-10-23 | XMS | Encounter Summary ---
Demographics + + + | Address | [address] | | | [place] [address] | + + + | Home Phone [...] [place], [place] | | | | | [address] | | + + + + + Care Team Providers + +------+ + | Care Gas Plant Operator Name | Role | Phone | + +------+ + PCP | Unavailable | + +------+ + Encounter Details +--------+ + + + + | Date | Type | Department | Care Team | Description | +--------+ + + + + | 07/17/ | Hospital | [facility] | | | | 1997 | Encounter | MED CTR EMERGENCY | | | | | | ZAKIYA Stone | | | | | | [place] | | | | | | [address] | | | | | | [phone] | | | +--------+ + + + [...] | | | | | [place] | | | | | | [address] | | | | | | | | +--------+---------+ + + + documented as of this encounter Visit Diagnoses Not on filedocumented in this encounter"
--- OUTSIDE RECORDS SUMMARY | ~2019-10-23 | XMS | Encounter Summary ---
Demographics + + + | Address | [address] | | | [place] [address] | + + + | Home Phone [...] [place] | | | | | [address] | | + + + + + Care Team Providers + +------+ + | Care Breakdown Worker Name | Role | Phone | [...] + + | 08/24/ | Documentati | [facility] | Katharine oMncada, | Other (urgent | | 2019 | on | CARDIOLOGY [place] | Technologist | report) | | | | [address] | | | | | | [place] | | | | | | [address] | | | | | | [phone] | | | +--------+ + + + [...] [place] | | | | | | [address] | | | | | | | | +--------+---------+ + + + documented as of this encounter Visit Diagnoses Not on filedocumented in this encounter"
--- OUTSIDE RECORDS SUMMARY | ~2019-10-23 | XMS | Encounter Summary ---
Demographics + + + | Address | [address] | | | [place] [address] | + + + | Home Phone [...] [place] | | | | | [address] | | + + + + + Care Team Providers + +------+ + | Care Heel Seat Laster Name | Role | Phone | [...] | | | | | | | [address] | | | | | | | Phone: | | | | | | | [phone] | | | | | | | Fax: | | | | | | | [phone] | | +--------+ + + + + + Reason for Visit + + + | Reason | Comments | + + + | Follow-up | 4 Week PO | + + + Encounter Details +--------+---------+ + + + | Date | Type | Department | Care Team | Description | +--------+---------+ + + + | 07/25/ | Office | [facility] | Frandy Teresa, | Lumbar spondylosis | | 2013 | Visit | NEUROSURGERY [address] | DO [address] | (Primary Dx); S/P | | | | [address] | [address] [place], [place] | lumbar fusion | | | | [place], [place] | [address] | | | | | [address] | | | | | | [phone] | | | +--------+---------+ + + + [...] [facility], [address] [place], [place] [address] FAX: NEUROSURGERY SURGICAL FOLLOW-UP CHIEF COMPLAINT: Chief [...] Take 15 mg by mouth nightl y. [place]-3 Fatty Acids (FISH OIL CONCENTRATE) 1000 MG [...] + | MISCELLANEOUS LAB | | | [phone] | + +---------+ + + | MISCELANIOUS LAB | | | [phone] | + +---------+ + + documented in this encounter Visit Diagnoses + + | Diagnosis | + + | Lumbar spondylosis - Primary Lumbosacral spondylosis without myelopathy | + + | S/P lumbar fusion Arthrodesis status | + + documented in this encounter
--- OUTSIDE RECORDS SUMMARY | ~2019-10-23 | XMS | Encounter Summary ---
Demographics + + + | Address | [address] | | | [place] [address] | + + + | Home Phone [...] [place] | | | | | [address] | | + + + + + Care Team Providers + +------+ + | Care Senior Graphic Designer Name | Role | Phone | + +------+ + | Adriano Patrick MD | PCP | | + +------+ + Encounter Details +--------+ + + + + | Date | Type | Department | Care Team | Description | +--------+ + + + + | 05/16/ | Orders Only | [facility] | Provider, | | | 2018 | | SYSTEM GENERIC OP | MD [address] | | | | | CONVERSION [address] | [address] | | | | | [address] [place], [place] | [place] [address] | | | | | [address] | | | | | | [phone] | | | +--------+ + + + [...] | | | | | [place], [place] | | | | | | [address] | | | | | | | | +--------+---------+ + + + documented as of this encounter Visit Diagnoses Not on filedocumented in this encounter"
--- OUTSIDE RECORDS SUMMARY | ~2019-10-23 | XMS | Encounter Summary ---
Demographics + + + | Address | [address] | | | [place] [address] | + + + | Home Phone [...] [place], [place] | | | | | [address] | | + + + + + Care Team Providers + +------+ + | Care Geological Aide Name | Role | Phone | + +------+ + PCP | Unavailable | + +------+ + Encounter Details +--------+ + + + + | Date | Type | Department | Care Team | Description | +--------+ + + + + | 02/02/ | Hospital | [facility] | | | | 1997 | Encounter | MED CTR EMERGENCY | | | | | | [address]AKI[address] Stone | | | | | | [place] | | | | | | [address] | | | | | | [phone] | | | +--------+ + + + [...] | | | | [place] | | | | | | [address] | | | | | | | | +--------+---------+ + + + documented as of this encounter Visit Diagnoses Not on filedocumented in this encounter"
--- OUTSIDE RECORDS SUMMARY | ~2019-10-23 | XMS | Encounter Summary ---
Demographics + + + | Address | [address] | | | [place] [address] | + + + | Home Phone [...] [place] | | | | | [address] | | + + + + + Care Team Providers + +------+ + | Care Wind Tunnel Technician Name | Role | Phone | [...] + | 08/15/ | Documentati | [facility] | Katharine Moncada, | Other (urgent | | 2019 | on | CARDIOLOGY [place] | Technologist | report) | | | | [address] | | | | | | [place] | | | | | | [address] | | | | | | [phone] | | | +--------+ + + + [...] [place] | | | | | | [address] | | | | | | | | +--------+---------+ + + + documented as of this encounter Visit Diagnoses Not on filedocumented in this encounter"
--- OUTSIDE RECORDS SUMMARY | ~2019-10-23 | XMS | Encounter Summary ---
Demographics + + + | Address | [address] [facility] [address] | | | [place] [address] | + + + | Home Phone [...] [place] | | | | | [address] | | + + + + + Care Team Providers + +------+ + | Care Canal Lock Tender Chief Operator Name | Role | Phone | [...] | Transcriptions | + + | Interface, Medical Technologist Chemistry In - 11/04/2006 3:03 AM PST | | [address] | | [place], [place] [address] [facility] | | ClinicsOPERATION RECORDMed [...] skin retractor was put in place. The [place] elevators wereused to separate the | | [...]
--- OUTSIDE RECORDS SUMMARY | ~2019-10-23 | XMS | Encounter Summary ---
Demographics + + + | Address | [address] | | | [place] [address] | + + + | Home Phone [...] [place] | | | | | [address] | | + + + + + Care Team Providers + +------+ + | Care Chemical Compounder Name | Role | Phone | [...] | Frandy Simons DO | [address] | | | | | of skin | [address] | [place], | | | | | sensation | [address] | [place] | | | | | Arthrodesis | [place], [place] | [address] | | | | | status Left | [address] | Phone: | | | | | leg | Phone: | [phone] | | | | | weakness | [phone] | Fax: | | | | | Procedures | Fax: | [phone] | | | | | MRI Lumbar | [phone] | | | | | | Spine [...] | Frandy Simons DO | [address] | | | | | of skin | [address] | [place], | | | | | sensation | [address] | [place] | | | | | Arthrodesis | [place] | [address] | | | | | status Left | [address] | Phone: | | | | | leg | Phone: | [phone] | | | | | weakness | [phone] | Fax: | | | | | Procedures | Fax: | [phone] | | | | | MRI Lumbar | [phone] | | | | | | Spine wo | | | | | | | Contrast | | | +--------+--------+ + + + + Encounter Details +--------+ + + + + | Date | Type | Department | Care Team | Description | +--------+ + + + + | 08/19/ | Hospital | [facility] | Frandy Teresa, | Status post lumbar | | 2013 | Encounter | MED CTR MRI [address] | DO [address] | spinal fusion; Left | | | | [place], | [address] [place] | leg numbness; Left | | | | [place] [address] | [address] | leg weakness | | | | [phone] | | | +--------+ + + + [...] + + + +---------+ + + | [place]-3 Fatty | Take 1,000 mg by | [...] [place] | | | | | | [address] | | | | | | | [...] the round structure with high T1 and T2ehwdxq in the right L3 vertebral | | [...] + | MISCELLANEOUS LAB | | | [phone] | + +---------+ + + | MISCELANIOUS LAB | | | [phone] | + +---------+ + + documented in [...]
--- OUTSIDE RECORDS SUMMARY | ~2019-10-23 | XMS | Encounter Summary ---
Demographics + + + | Address | [address] | | | [place] [address] | + + + | Home Phone [...] [place] | | | | | [address] | | + + + + + Care Team Providers + +------+ + | Care Customer Service Associate Name | Role | Phone [...] + + | 04/30/ | Office | [facility] | Russell Alfaro PA | ROGERS on CPAP (Primary | | 2015 | Visit | SLEEP DISORDER [address] | [address] | Dx) | | | | [address] | [place] | | | | | [place] [address] | [address] | | | | | [phone] | | | +--------+---------+ + + + [...] Insomnia Severity Index Insomnia Severity Index 13 Omer Sleepiness Scale Sitting and reading 3 Watching [...] nasal obtained from: [facility] [place] pressure: 11-20 cm Median: 12.1 cm 95%: [...] appro priate paperwork. Thirty minutes were spent [id number], with the majority of time spent i [...] | | | | | [place], [place] | | | | | | [address] | | | | | | | | +--------+---------+ + + + documented as of this encounter Visit Diagnoses + + | Diagnosis | + + | ROGERS on CPAP - Primary Obstructive sleep apnea (adult) (pediatric) | + + documented in this encounter"
--- OUTSIDE RECORDS SUMMARY | ~2019-10-23 | XMS | Encounter Summary ---
Demographics + + + | Address | [address] | | | [place] [address] | + + + | Home Phone [...] [place] | | | | | [address] | | + + + + + Care Team Providers + +------+ + | Care Hydraulic Lift Driver Name | Role | Phone | [...] [place], [place] | | | | | [place], [place] | [id number] | | | | | [address] | | | | | | [phone] | | | +--------+ + + + [...] | | | | | [place] | | | | | | [address] | | | | | | | | +--------+---------+ + + + documented as of this encounter Visit Diagnoses Not on filedocumented in this encounter"
--- OUTSIDE RECORDS SUMMARY | ~2019-10-23 | XMS | Encounter Summary ---
Demographics + + + | Address | [address] | | | [place] [address] | + + + | Home Phone [...] [place], [place] | | | | | [address] | | + + + + + Care Team Providers + +------+ + | Care Welding Robot Operator Name | Role | Phone | + +------+ + PCP | Unavailable | + +------+ + Encounter Details +--------+ + + + + | Date | Type | Department | Care Team | Description | +--------+ + + + + | 12/27/ | Hospital | [facility] | | | | 1997 - | Encounter | MED CTR GENERIC PSY | | | | | | CONV DEPT [address] | | | | 01/01/ | | [place], | | | | 1997 | | [place] [address] | | | | | | [phone] | | | +--------+ + + + [...] [place] | | | | | | [address] | | | | | | | | +--------+---------+ + + + documented as of this encounter Visit Diagnoses Not on filedocumented in this encounter"
--- OUTSIDE RECORDS SUMMARY | ~2019-10-23 | XMS | Encounter Summary ---
Demographics + + + | Address | [address] | | | [place] [address] | + + + | Home Phone [...] [place], [place] | | | | | [address] | | + + + + + Care Team Providers + +------+ + | Care Sales/Marketing Name | Role | Phone | + +------+ + PCP | Unavailable | + +------+ + Encounter Details +--------+ + + + + | Date | Type | Department | Care Team | Description | +--------+ + + + + | 06/30/ | Hospital | [facility] | | | | 1999 - | Encounter | MED CTR GENERIC PSY | | | | | | CONV DEPT [address] | | | | 07/05/ | | [place], | | | | 1999 | | [place] [address] | | | | | | [phone] | | | +--------+ + + + [...] [place] | | | | | | [address] | | | | | | | | +--------+---------+ + + + documented as of this encounter Visit Diagnoses Not on filedocumented in this encounter"
--- OUTSIDE RECORDS SUMMARY | ~2019-10-23 | XMS | Encounter Summary ---
Demographics + + + | Address | [address] | | | [place] [address] | + + + | Home Phone [...] [place] | | | | | [address] | | + + + + + Care Team Providers + +------+ + | Care Electrophysiology Technician Name | Role | Phone | [...] [place] | | | | | | [address] | | | | | | [phone] | | | +--------+ + + + [...] [place] | | | | | | [address] | | | | | | | | +--------+---------+ + + + documented as of this encounter Visit Diagnoses Not on filedocumented in this encounter"
--- OUTSIDE RECORDS SUMMARY | ~2019-10-23 | XMS | Encounter Summary ---
Demographics + + + | Address | [address] | | | [place] [address] | + + + | Home Phone [...] [place] | | | | | [address] | | + + + + + Care Team Providers + +------+ + | Care Glassie Name | Role | Phone | + [...] | [address] [place], [place] | (Primary Dx) | | | | [place], [place] | [address] | | | | | [address] | | | | | | [phone] | | | +--------+ + + + [...] [place] | | | | | | [address] | | | | | | | [...] + | MISCELLANEOUS LAB | | | [phone] | + +---------+ + + | MISCELANIOUS LAB | | | [phone] | + +---------+ + + documented in this encounter Visit Diagnoses + + | Diagnosis | + + | Status post lumbar spinal fusion - Primary Arthrodesis status | + + documented in this encounter"
--- OUTSIDE RECORDS SUMMARY | ~2019-10-23 | XMS | Encounter Summary ---
Demographics + + + | Address | [address] | | | [place] [address] | + + + | Home Phone [...] [place] | | | | | [address] | | + + + + + Care Team Providers + +------+ + | Care Produce Team Member Name | Role | Phone [...] + | 08/15/ | Documentati | [facility] | Katharine Moncada, | Other (urgent | | 2019 | on | CARDIOLOGY [place] | Technologist | report) | | | | [address] | | | | | | [place] | | | | | | [address] | | | | | | [phone] | | | +--------+ + + + [...] [place] | | | | | | [address] | | | | | | | | +--------+---------+ + + + documented as of this encounter Visit Diagnoses Not on filedocumented in this encounter"
--- OUTSIDE RECORDS SUMMARY | ~2019-10-23 | XMS | Encounter Summary ---
Demographics + + + | Address | [address] | | | [place] [address] | + + + | Home Phone [...] [place] | | | | | [address] | | + + + + + Care Team Providers + +------+ + | Care Cdl Company Driver Name | Role | Phone [...] [address] | [address] [place], [place] | Anxiety; Anemia; | | | | [place], [place] | [address] | Irregular heartbeat; | | | | [address] | | Depression; | | | | [phone] | | Migraine; | | | | [...] [place] | | | | | | [address] | | | | | | | [...]
--- OUTSIDE RECORDS SUMMARY | ~2019-10-23 | XMS | Encounter Summary ---
Demographics + + + | Address | [address] | | | [place] [address] | + + + | Home Phone [...] [place] | | | | | [address] | | + + + + + Care Team Providers + +------+ + | Care Color Room Attendant Name | Role | Phone [...] + + | 07/30/ | Telephone | [facility] | Ashley Chávez | Talia (Patient | | 2019 | | CARDIOLOGY [place] Abad, Corn Detasseler Machine Operator | mariela ) | | | | [address] | | | | | | [place], [place] | | | | | | [address] | | | | | | [phone] | | | +--------+ + + + [...] [place] | | | | | | [address] | | | | | | | | +--------+---------+ + + + documented as of this encounter Visit Diagnoses Not on filedocumented in this encounter"
--- OUTSIDE RECORDS SUMMARY | ~2019-10-23 | XMS | Encounter Summary ---
Demographics + + + | Address | [address] | | | [place] [address] | + + + | Home Phone [...] [place] | | | | | [address] | | + + + + + Care Team Providers + +------+ + | Care Heavy Antiarmor Weapons Infantryman Name | Role | Phone | + +------+ + | Natalee Andersen NP | PCP | | + +------+ + Encounter Details +--------+ + + + + | Date | Type | Department | Care Team | Description | +--------+ + + + + | 09/27/ | Hospital | [facility] | Frandy Teresa, | Lumbar spondylosis; | | 2013 | Encounter | MED CTR XRAY [address] | DO [address] | S/P lumbar fusion | | | | [place] | [address] [place], [place] | | | | | [place] [address] | [address] | | | | | [phone] | | | +--------+ + + + [...] + + + +---------+ + + | [place]-3 Fatty | Take 1,000 mg by [...] [place] | | | | | | [address] | | | | | | | [...] + | MISCELLANEOUS LAB | | | [phone] | + +---------+ + + | MISCELANIOUS LAB | | | [phone] | + +---------+ + + documented in this encounter Visit Diagnoses + + | Diagnosis | + + | Lumbar spondylosis Lumbosacral spondylosis without myelopathy | + + | S/P lumbar fusion Arthrodesis status | + + documented in this encounter"
--- OUTSIDE RECORDS SUMMARY | ~2019-10-23 | XMS | Encounter Summary ---
Demographics + + + | Address | [address] | | | [place] [address] | + + + | Home Phone [...] [place] | | | | | [address] | | + + + + + [...] | | | | | | | [address] | | | | | | | Phone: | | | | | | | [phone] | | | | | | | Fax: | | | | | | | [phone] | | +--------+ + + + + + Reason for Visit + + + | Reason | Comments | + + + | Follow-up | 4 Week PO | + + + Encounter Details +--------+---------+ + + + | Date | Type | Department | Care Team | Description | +--------+---------+ + + + | 07/25/ | Office | [facility] | Frandy Teresa, | Lumbar spondylosis | | 2013 | Visit | NEUROSURGERY [address] | DO [address] | (Primary Dx); S/P | | | | [address] | [address] [place], [place] | lumbar fusion | | | | [place], [place] | [address] | | | | | [address] | | | | | | [phone] | | | +--------+---------+ + + + [...] [facility] [address] [place], [place] [address] FAX: NEUROSURGERY SURGICAL FOLLOW-UP CHIEF COMPLAINT: Chief [...] Take 15 mg by mouth nightl y. [place]-3 Fatty Acids (FISH OIL CONCENTRATE) 1000 MG [...] + | MISCELLANEOUS LAB | | | [phone] | + +---------+ + + | MISCELANIOUS LAB | | | [phone] | + +---------+ + + documented in this encounter Visit Diagnoses + + | Diagnosis | + + | Lumbar spondylosis - Primary Lumbosacral spondylosis without myelopathy | + + | S/P lumbar fusion Arthrodesis status | + + documented in this encounter
--- OUTSIDE RECORDS SUMMARY | ~2019-10-23 | XMS | Encounter Summary ---
Demographics + + + | Address | [address] | | | [place] [address] | + + + | Home Phone [...] [place] | | | | | [address] | | + + + + + [...] [address] | [address] [place], [place] | Hypothyroidism; | | | | [place], [place] | [address] | GERD; BACK PAIN, | | | | [address] | | LUMBAR, WITH | | | | [phone] | | RADICULOPATHY; | | | | [...] [place] | | | | | | [address] | | | | | | | [...]
--- OUTSIDE RECORDS SUMMARY | ~2019-10-23 | XMS | Encounter Summary ---
Demographics + + + | Address | [address] | | | [place] [address] | + + + | Home Phone [...] [place] | | | | | [address] | | + + + + + Care Team Providers + +------+ + | Care De Ionizer Operator Name | Role | Phone | [...] [place] | | | | | | [address] | | | | | | [phone] | | | +--------+ + + + [...] [place] | | | | | | [address] | | | | | | | | +--------+---------+ + + + documented as of this encounter Visit Diagnoses Not on filedocumented in this encounter"
--- OUTSIDE RECORDS SUMMARY | ~2019-10-23 | XMS | Encounter Summary ---
Demographics + + + | Address | [address] | | | [place] [address] | + + + | Home Phone [...] [place] | | | | | [address] | | + + + + + Care Team Providers + +------+ + | Care Sort Line Worker Name | Role | Phone [...] + + | 07/10/ | Telephone | [facility] | Frandy Teresa, | Imaging Only (1 year | | 2014 | | NEUR[address]UR[address]ERY [address] | DO [address] | x-ray ) | | | | [address] | [address] [place], [place] | | | | | [place], [place] | [id number] | | | | | [address] | | | | | | [phone] | | | +--------+ + + + [...] [place] | | | | | | [address] | | | | | | | | +--------+---------+ + + + documented as of this encounter Visit Diagnoses Not on filedocumented in this encounter"
--- OUTSIDE RECORDS SUMMARY | ~2019-10-23 | XMS | Encounter Summary ---
Demographics + + + | Address | [address] | | | [place] [address] | + + + | Home Phone [...] [place], [place] | | | | | [address] | | + + + + + Care Team Providers + +------+ + | Care Plastic Molder Name | Role | Phone | + +------+ + PCP | Unavailable | + +------+ + Encounter Details +--------+ + + + + | Date | Type | Department | Care Team | Description | +--------+ + + + + | 05/23/ | Hospital | [facility] | | | | 1991 | Encounter | MED CTR XRAY [address] | | | | | | [place] | | | | | | [place] [address] | | | | | | [phone] | | | +--------+ + + + [...] | | | | | [place] | | | | | | [address] | | | | | | | | +--------+---------+ + + + documented as of this encounter Visit Diagnoses Not on filedocumented in this encounter"
--- OUTSIDE RECORDS SUMMARY | ~2019-10-23 | XMS | Encounter Summary ---
Demographics + + + | Address | [address] | | | [place] [address] | + + + | Home Phone [...] [place] | | | | | [address] | | + + + + + [...] + | 12/03/ | Refill | [facility] | Frandy Teresa, | Medication Refill | | 2014 | | NEUR[address]URGERY [address] | DO [address] | | | | | [address] | [address] [place], [place] | | | | | [place], [place] | [id number] | | | | | [address] | | | | | | [phone] | | | +--------+--------+ + + + [...] | | | | | [place] | | | | | | [address] | | | | | | | | +--------+---------+ + + + documented as of this encounter Visit Diagnoses Not on filedocumented in this encounter"
--- OUTSIDE RECORDS SUMMARY | ~2019-10-23 | XMS | Encounter Summary ---
Demographics + + + | Address | [address] | | | [place] [address] | + + + | Home Phone [...] [place] | | | | | [address] | | + + + + + Care Team Providers + +------+ + | Care Lifeguard Name | Role | Phone | [...] | Frandy Simons DO | [address] | | | | | of skin | [address] | [place], | | | | | sensation | [address] | [place] | | | | | Arthrodesis | [place], [place] | [address] | | | | | status Left | [address] | Phone: | | | | | leg | Phone: | [phone] | | | | | weakness | [phone] | Fax: | | | | | Procedures | Fax: | [phone] | | | | | MRI Lumbar | [phone] | | | | | | Spine [...] [address] | [address] [place], [place] | | | | | [place], [place] | [address] | | | | | [address] | | | | | | [phone] | | | +--------+ + + + [...] [place] | | | | | | [address] | | | | | | | [...] the round structure with high T1 and N0spcrwc in the right L3 vertebral | | [...] + | MISCELLANEOUS LAB | | | [phone] | + +---------+ + + | MISCELANIOUS LAB | | | [phone] | + +---------+ + + documented in [...]
--- OUTSIDE RECORDS SUMMARY | ~2019-10-23 | XMS | Encounter Summary ---
Demographics + + + | Address | [address] | | | [place] [address] | + + + | Home Phone [...] [place] | | | | | [address] | | + + + + + Care Team Providers + +------+ + | Care Minute Clerk For Basic Traffic Name | Role | Phone | + [...] [address] | [address] [place], [place] | fusion | | | | [place] | [address] | | | | | [address] | | | | | | [phone] | | | +--------+ + + + [...] [place] | | | | | | [address] | | | | | | | | +--------+---------+ + + + documented as of this encounter Visit Diagnoses + + | Diagnosis | + + | Lumbago - Primary | + + | S/P lumbar fusion Arthrodesis status | + + documented in this encounter"
--- OUTSIDE RECORDS SUMMARY | ~2019-10-23 | XMS | Encounter Summary ---
Demographics + + + | Address | [address] | | | [place] [address] | + + + | Home Phone [...] [place], [place] | | | | | [address] | | + + + + + Care Team Providers + +------+ + | Care Hand Sander Name | Role | Phone | [...] | | | | | [place] [address] | | | | | | [phone] | | | +--------+ + + + [...] | | | | | [place] | | | | | | [address] | | | | | | | | +--------+---------+ + + + documented as of this encounter Visit Diagnoses Not on filedocumented in this encounter"
--- OUTSIDE RECORDS SUMMARY | ~2019-10-23 | XMS | Encounter Summary ---
Demographics + + + | Address | [address] | | | [place] [address] | + + + | Home Phone [...] [place] | | | | | [address] | | + + + + + Care Team Providers + +------+ + | Care Karate Teacher Name | Role | Phone | [...] | 08/09/ | Documentati | [facility] | Katharine Moncada, | Other (end of study) | | 2019 | on | CARDIOLOGY [place] | Technologist | | | | | [address] | | | | | | [place], [place] | | | | | | [address] | | | | | | [phone] | | | +--------+ + + + [...] Technologist - 08/09/2019 11:59 PM PDT Cardiac Health Editor Date of Event Monitor: 08/09/19 Referring [...] [place] | | | | | | [address] | | | | | | | | +--------+---------+ + + + documented as of this encounter Visit Diagnoses Not on filedocumented in this encounter"
--- OUTSIDE RECORDS SUMMARY | ~2019-10-23 | XMS | Encounter Summary ---
Demographics + + + | Address | [address] | | | [place] [address] | + + + | Home Phone [...] [place] | | | | | [address] | | + + + + + Care Team Providers + +------+ + | Care Environmental Health Technologist Name | Role | Phone | [...] + + | 08/14/ | Telephone | [facility] | Ashley Chávez | Other (Patient was | | 2019 | | CARDIOLOGY [place], Chromosomal Disorders Counselor | anxious about urgent | | | | [address] | | reports. ) | | | | [place] | | | | | | [address] | | | | | | [phone] | | | +--------+ + + + [...] [place] | | | | | | [address] | | | | | | | | +--------+---------+ + + + documented as of this encounter Visit Diagnoses Not on filedocumented in this encounter"
--- OUTSIDE RECORDS SUMMARY | ~2019-10-23 | XMS | Encounter Summary ---
Demographics + + + | Address | [address] | | | [place] [address] | + + + | Home Phone [...] [place] | | | | | [address] | | + + + + + Care Team Providers + +------+ + | Care Advertising Sales Agent Name | Role | Phone [...] [place] | | | | | | [address] | | | | | | [phone] | | | +--------+ + + + [...] [place] | | | | | | [address] | | | | | | | | +--------+---------+ + + + documented as of this encounter Visit Diagnoses Not on filedocumented in this encounter"
--- OUTSIDE RECORDS SUMMARY | ~2019-10-23 | XMS | Encounter Summary ---
Demographics + + + | Address | [address] | | | [place] [address] | + + + | Home Phone [...] [place] | | | | | [address] | | + + + + + Care Team Providers + +------+ + | Care Building Superintendent Name | Role | Phone | [...] + | 03/07/ | Telephone | [facility] | Katharine Cardona PA-C | Results | | 2014 | | [facility] | [address] [place] | | | | | [address] | [place] [address] | | | | | [place], [place] | [phone] | | | | | [address] | | | | | | [phone] | | | +--------+ + + + [...] [place] | | | | | | [address] | | | | | | | | +--------+---------+ + + + documented as of this encounter Visit Diagnoses Not on filedocumented in this encounter"
--- OUTSIDE RECORDS SUMMARY | ~2019-10-23 | XMS | Encounter Summary ---
Demographics + + + | Address | [address] | | | [place] [address] | + + + | Home Phone [...] [place], [place] | | | | | [address] | | + + + + + Care Team Providers + +------+ + | Care Wire Wrapper Machine Operator Name | Role | Phone | + +------+ + PCP | Unavailable | + +------+ + Encounter Details +--------+ + + + + | Date | Type | Department | Care Team | Description | +--------+ + + + + | 01/06/ | Hospital [facility] | | | | [facility] | Encounter | MED CTR LABORATORY | | | | | | [address] | | | | | | [place] | | | | | | [address] | | | | | | [phone] | | | +--------+ + + + [...] | | | | | [place] | | | | | | [address] | | | | | | | | +--------+---------+ + + + documented as of this encounter Visit Diagnoses Not on filedocumented in this encounter"
--- OUTSIDE RECORDS SUMMARY | ~2019-10-23 | XMS | Encounter Summary ---
Demographics + + + | Address | [address] | | | [place] [address] | + + + | Home Phone [...] [place] | | | | | [address] | | + + + + + Care Team Providers + +------+ + | Care Thermal Spray Operator Name | Role | Phone [...] + + | 07/08/ | Telephone | [facility] | Frandy Teresa, | Other (post op call | | 2013 | | NEUROSURGERY [address] | DO [address] | ) | | | | [address] | [address] [place], [place] | | | | | [place], [place] | [address] | | | | | [address] | | | | | | [phone] | | | +--------+ + + + [...] | | | | | [place] | | | | | | [address] | | | | | | | | +--------+---------+ + + + documented as of this encounter Visit Diagnoses Not on filedocumented in this encounter"
--- OUTSIDE RECORDS SUMMARY | ~2019-10-23 | XMS | Encounter Summary ---
Demographics + + + | Address | [address] | | | [place] [address] | + + + | Home Phone [...] [place] | | | | | [address] | | + + + + + [...] [place] | | | | | | [address] | | | | | | [phone] | | | +--------+ + + + [...] [place] | | | | | | [address] | | | | | | | | +--------+---------+ + + + documented as of this encounter Visit Diagnoses Not on filedocumented in this encounter"
--- OUTSIDE RECORDS SUMMARY | ~2019-10-23 | XMS | Encounter Summary ---
Demographics + + + | Address | [address] | | | [place] [address] | + + + | Home Phone [...] [place] | | | | | [address] | | + + + + + Care Team Providers + +------+ + | Care Ruby On Rails Web Developer Name | Role | Phone [...] | | | | | | | [address] | | | | | | | Phone: | | | | | | | [phone] | | | | | | | Fax: | | | | | | | [phone] | | +--------+ + + + + + Reason for Visit + + + | Reason | Comments | + + + | Follow-up | 3 mo po | + + + Encounter Details +--------+---------+ + + + | Date | Type | Department | Care Team | Description | +--------+---------+ + + + | 09/27/ | Office | [facility] | Frandy Teresa, | Lumbar spondylosis | | 2013 | Visit | NEUR[address]URGERY [address] | DO [address] | (Primary Dx); S/P | | | | [address] | [address] [place], [place] | lumbar fusion | | | | [place], [place] | [address] | | | | | [address] | | | | | | [phone] | | | +--------+---------+ + + + [...] [facility], [address] [place] [address] FAX: NEUROSURGERY FOLLOW-UP CHIEF COMPLAINT: Chief Complaint [...] Laterality: N/A; Surgeon: Frandy castellanos DO; Location: [facility] MAIN OR CURRENT MEDICATIONS: Current Outpatient [...] Take 15 mg by mouth nightl y. [place]-3 Fatty Acids (FISH OIL CONCENTRATE) 1000 MG [...] | | | | | [place], [place] | | | | | | [address] | | | | | | | [...]
--- OUTSIDE RECORDS SUMMARY | ~2019-10-23 | XMS | Encounter Summary ---
Demographics + + + | Address | [address] | | | [place] [address] | + + + | Home Phone [...] [place] | | | | | [address] | | + + + + + Care Team Providers + +------+ + | Care Workforce Analyst Name | Role | Phone | [...] [address] | [address] [place], [place] | Hypothyroidism; | | | | [place] | [address] | GERD; BACK PAIN, | | | | [address] | | LUMBAR, WITH | | | | [phone] | | RADICULOPATHY; | | | | [...] [place] | | | | | | [address] | | | | | | | [...]
--- OUTSIDE RECORDS SUMMARY | ~2019-10-23 | XMS | Encounter Summary ---
Demographics + + + | Address | [address] | | | [place] [address] | + + + | Home Phone [...] [place], [place] | | | | | [address] | | + + + + + Care Team Providers + +------+ + | Care Transplant Immunologist Name | Role | Phone | + +------+ + PCP | Unavailable | + +------+ + Encounter Details +--------+ + + + + | Date | Type | Department | Care Team | Description | +--------+ + + + + | 10/29/ | Hospital | [facility] | | | | 1994 | Encounter | MED CTR LABORATORY | | | | | | [address] | | | | | | [place] | | | | | | [address] | | | | | | [phone] | | | +--------+ + + + [...] | | | | | [place] | | | | | | [address] | | | | | | | | +--------+---------+ + + + documented as of this encounter Visit Diagnoses Not on filedocumented in this encounter"
--- OUTSIDE RECORDS SUMMARY | ~2019-10-23 | XMS | Encounter Summary ---
Demographics + + + | Address | [address] | | | [place] [address] | + + + | Home Phone [...] [place], [place] | | | | | [address] | | + + + + + Care Team Providers + +------+ + | Care Box Car Checker Name | Role | Phone | + +------+ + PCP | Unavailable | + +------+ + Encounter Details +--------+ + + + + | Date | Type | Department | Care Team | Description | +--------+ + + + + | 03/13/ | Hospital | [facility] | | | | 1996 - | Encounter | MED CTR GENERIC OP | | | | | | CONV DEPT [address] | | | | 03/21/ | | [address] [place], | | | | 1996 | | [place] [address] | | | | | | [phone] | | | +--------+ + + + [...] [place] | | | | | | [address] | | | | | | | | +--------+---------+ + + + documented as of this encounter Visit Diagnoses Not on filedocumented in this encounter"
--- OUTSIDE RECORDS SUMMARY | ~2019-10-23 | XMS | Encounter Summary ---
Demographics + + + | Address | [address] | | | [place] [address] | + + + | Home Phone [...] [place] | | | | | [address] | | + + + + + Care Team Providers + +------+ + | Care Embedded Engineer Name | Role | Phone | [...] + + | 08/30/ | Telephone | [facility] | Ashley Chávez | Other (Patient wants | | 2019 | | CARDIOLOGY [place] | Pollo, Registered Public Surveyor | to take monitor | | | | [address] | | off. ) | | | | [address] | | | | | | [place] | | | | | | [address] | | | | | | [phone] | | | +--------+ + + + [...] [place] | | | | | | [address] | | | | | | | | +--------+---------+ + + + documented as of this encounter Visit Diagnoses Not on filedocumented in this encounter"
--- OUTSIDE RECORDS SUMMARY | ~2019-10-23 | XMS | Encounter Summary ---
Demographics + + + | Address | [address] | | | [place] [address] | + + + | Home Phone [...] [place] | | | | | [address] | | + + + + + Care Team Providers + +------+ + | Care Route Jumper Name | Role | Phone | + +------+ + | Natalee Andersen NP | PCP | | + +------+ + Encounter Details +--------+ + + + + | Date | Type | Department | Care Team | Description | +--------+ + + + + | 05/02/ | Hospital | [facility] | Frandy Teresa, | Back pain | | 2014 | Encounter | MED CTR XRAY [address] | DO [address] | | | | | [place] | [address] [place] | | | | | [place] [address] | [address] | | | | | [phone] | | | +--------+ + + + [...] + + + +---------+ + + | [place]-3 Fatty | Take 1,000 mg by | [...] | | | | | [place] | | | | | | [address] | | | | | | | [...] + | MISCELLANEOUS LAB | | | [phone] | + +---------+ + + | MISCELANIOUS LAB | | | [phone] | + +---------+ + + documented in this encounter Visit Diagnoses + + | Diagnosis | + + | Back pain Backache, unspecified | + + documented in this encounter"
--- OUTSIDE RECORDS SUMMARY | ~2019-10-23 | XMS | Encounter Summary ---
Demographics + + + | Address | [address] | | | [place] [address] | + + + | Home Phone [...] [place] | | | | | [address] | | + + + + + Care Team Providers + +------+ + | Care Parole Hearing Officer Name | Role | Phone | [...] | | | | | Procedures | CREW TRAIN[address] | [address] | | | | | [place] OFFICE | | [address] | | | | | CONSULTATION | [address] | [place] | | | | | NEW/ESTAB | [facility], | [address] Phone: | | | | | PATIENT [address] | [place] [address] | [phone] | | | | | MIN | Phone: | Fax: | | | | | | [phone] | [phone] | | | | | | Fax: | | | | | | | [phone] | | +--------+--------+ + + + + Encounter Details +--------+---------+ + + + | Date | Type | Department | Care Team | Description | +--------+---------+ + + + | 05/02/ | Office | [facility] | Frandy Teresa, | Spondylolisthesis of | | 2013 | Visit | NEUR[address]UR[address]ERY [address] | DO [address] | lumbar region | | | | [address] | [address] [place], [place] | (Primary Dx); Lumbar | | | | [place], [place] | [id number] | stenosis; Lumbar | | | | [address] | | radicular pain; | | | | [phone] | | Lumbago | +--------+---------+ + + [...] [facility], [address] [place] [address] FAX: NEUROSURGERY HISTORY AND PHYSICAL EXAMINATION CHIEF [...] Take 15 mg by mouth nightl y. [place]-3 Fatty Acids (FISH OIL CONCENTRATE) 1000 MG [...] has no apparent deficits with short or technician terminal and repeater memory. CRANIAL NERVES: II: Acuity is intact. [...] Intrinsics 5 5 Ulnar Intrinsics 5 5 Drum Tester Strength 5 5 Hip Flexion 5 4* [...] | | | | | [place] | | | | | | [address] | | | | | | | [...]
--- OUTSIDE RECORDS SUMMARY | ~2019-10-23 | XMS | Encounter Summary ---
Demographics + + + | Address | [address] | | | [place] [address] | + + + | Home Phone [...] [place], [place] | | | | | [address] | | + + + + + Care Team Providers + +------+ + | Care Archeology Professor Name | Role | Phone | [...] [address] | | | | | | [place], | | | | | | [place] [address] | | | | | | [phone] | | | +--------+ + + + [...] | | | | | [place] | | | | | | [address] | | | | | | | | +--------+---------+ + + + documented as of this encounter Visit Diagnoses Not on filedocumented in this encounter"
--- OUTSIDE RECORDS SUMMARY | ~2019-10-23 | XMS | Encounter Summary ---
Demographics + + + | Address | [address] | | | [place] [address] | + + + | Home Phone [...] [place] | | | | | [address] | | + + + + + Care Team Providers + +------+ + | Care Automatic Bow Maker Machine Tender Name | Role | Phone [...] + + | 06/27/ | Office | [facility] | Yecenia Richardson, | Hypertension, | | 2019 | Visit | CARDIOLOGY [place] | MD Nitin RODRIGUES | unspecified type | | | | [address] | [place], [place] | (Primary Dx); | | | | [facility] | [address] | Bradycardia | | | | [place] | | | | | | [address] | | | | | | [phone] | | | +--------+---------+ + + + [...] urgent basis. Had an appointment today in [facility]. She has been feeling dizzy [...] Take by mouth. Blood Glucose Monitoring Suppl ([employer] VERIO FLEX SYSTEM) w/Device KIT by Does [...] mg by mouth Daily. Cholecalciferol (VITAMIN D-3) 26854 units CAPS Take 50,000 Units by mouth [...] tablet Take 10 mg by mouth nightly. [place]-3 Fatty Acids (FISH OIL CONCENTRATE) 1000 MG [...] | Desiere Peterson DO | | | 2020 | Visit | | [address] | | | | | | [place], [place] | | | | | | [address] | | | | | | | [...]
--- OUTSIDE RECORDS SUMMARY | ~2019-10-23 | XMS | Encounter Summary ---
Demographics + + + | Address | [address] | | | [place] [address] | + + + | Home Phone [...] [place], [place] | | | | | [address] | | + + + + + [...] + + | 12/31/ | Hospital | [facility] | | | | 1996 | Encounter | MED CTR XRAY [address] | | | | | [address] | | | | | | [place] [address] | | | | | | [phone] | | | +--------+ + + + [...] [place] | | | | | | [address] | | | | | | | | +--------+---------+ + + + documented as of this encounter Visit Diagnoses Not on filedocumented in this encounter"
--- OUTSIDE RECORDS SUMMARY | ~2019-10-23 | XMS | Encounter Summary ---
Demographics + + + | Address | [address] | | | [place] [address] | + + + | Home Phone [...] [place] | | | | | [address] | | + + + + + Care Team Providers + +------+ + | Care Window Trimmer Name | Role | Phone | [...] [place] | | | | | | [address] | | | | | | [phone] | | | +--------+ + + + [...] [place] | | | | | | [address] | | | | | | | | +--------+---------+ + + + documented as of this encounter Visit Diagnoses Not on filedocumented in this encounter"
--- OUTSIDE RECORDS SUMMARY | ~2019-10-23 | XMS | Encounter Summary ---
Demographics + + + | Address | [address] | | | [place] [address] | + + + | Home Phone [...] [place] | | | | | [address] | | + + + + + Care Team Providers + +------+ + | Care Overlock Sewing Machine Operator Name | Role | [...] | | | spondylolist | | [address] [place] | | | | | hesis | | [place], | | | | | Spinal | | [place] [address] | | | | | stenosis, | | Phone: | | | | | lumbar | | [phone] | | | | | region, | | Fax: | | | | | without | | [phone] | | | | | neurogenic | [...] + | 07/02/ | Hospital | [facility] | Frandy Teresa, | Spinal stenosis, | | 2013 | Encounter | MED CTR XRAY [address] | DO [address] | lumbar region, | | | | [place] | [address] [place], [place] | without neurogenic | | | | [place] [address] | [address] | claudication | | | | [phone] | | (Primary Dx) | +--------+ + [...] + + + +---------+ + + | [place]-3 Fatty | Take 1,000 mg by | [...] [place] | | | | | | [address] | | | | | | | [...]
--- OUTSIDE RECORDS SUMMARY | 2019-10-23 08:04 | XMS ---
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 No recent Security Events currently on file CRITERIA MET - 6 ED Visits in 6 Months - [facility] - Has Care Guidelines - PDMP - [facility] - 2 Visits in 30 Days CARE PROVIDERS WAYNE CAMARGO Internal Medicine 09/07/2019-Current PHONE: Unknown Kenny Palafox DO Family [facility] Current PHONE: Unknown Jose Ag Family Medicine 01/31/2019-Current PHONE: Unknown [facility] Provider Current PHONE: [phone] Guidelines Source: Vivian Radha Negrete Guidelines Date: 03/13/2019 Care Coordination: Mental health services are being provided by [facility].\T\nbsp; Please contact [facility] with mental health concerns.\T\nbsp; [place]: \T\nbsp; [place]: [phone]. Care History Medical/Surgical 10/15/2019 [facility] Patient still scheduled for 10/25/[address] Camargo.\T\nbsp; Phone restrictions.\T\nbsp; Not able to reach patient by phone. 10/01/2019 [facility] Patient\T\#39;s 09/28/[address] Camargo was rescheduled for 2019. 09/19/2019 [facility] Patient has follow up appt. with Dr. Camargo on 09/28/19. E.D. VISIT COUNT (12 MO.) 27 [facility]. TOTAL 27 NOTE: Visits indicate total known visits. ED/UCC VISIT TRACKING (12 MO.) 10/23/2019 08:03 [facility] [place] TYPE: Emergency COMPLAINT: - MEDICAL CLEARANCE? 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 - Old myocardial infarction - Essential (primary) hypertension - 1 Type 2 diabetes mellitus with hyperglycemia 10/11/2019 10:06 [place] [place] TYPE: Emergency COMPLAINT: - MEDICAL CLEARANCE DIAGNOSES: - Essential (primary) hypertension - Delusional disorders - Old myocardial infarction - Delusional disorders - Allergy status to sulfonamides status - Other alf (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 - Schizoaffective disorder, unspecified 09/28/2019 13:19 [facility] [place] [place] TYPE: Emergency COMPLAINT: - MEDICAL CLEARANCE DIAGNOSES: - 1 Type 2 diabetes mellitus without complications - Allergy status to oth drug/meds/biol subst status - Old myocardial infarction - 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 - Allergy status to sulfonamides status - Gastro-esophageal reflux disease without esophagitis - Essential (primary) hypertension - Suicidal ideations - Encounter for other administrative examinations 09/26/2019 10:06 [facility] [place] [place] TYPE: Emergency COMPLAINT: - MEDICAL CLEARANCE DIAGNOSES: - 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 - Prsnl hx of TIA (TIA), and 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 - Gastro-esophageal reflux disease without esophagitis - Allergy status to sulfonamides status - Old myocardial infarction - Schizoaffective disorder, unspecified - Allergy status to oth drug/meds/biol subst status - Essential (primary) hypertension - 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 09/25/2019 13:35 [facility] [place] TYPE: Emergency COMPLAINT: - HEARING VOICES DIAGNOSES: - 1 Type 2 diabetes mellitus without complications - Prsnl hx of TIA (TIA), and 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 - Gastro-esophageal reflux disease without esophagitis - Schizoaffective disorder, unspecified - Suicidal ideations - FPC (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 - Old myocardial infarction - Allergy status to sulfonamides status - Essential (primary) hypertension - 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 - Allergy status to oth drug/meds/biol subst status 09/18/2019 13:53 [place] [place] TYPE: Emergency COMPLAINT: - MEDICAL CLEARANCE DIAGNOSES: - 1 Type 2 diabetes mellitus without complications - Schizoaffective disorder, unspecified - Suicidal ideations - Allergy status to oth drug/meds/biol subst status - Gastro-esophageal reflux disease without esophagitis - Old myocardial infarction - 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 - Essential (primary) hypertension - Rash and other nonspecific skin eruption - Allergy status to sulfonamides status - Other alf (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 09/18/2019 10:33 [facility] [place] TYPE: Emergency COMPLAINT: - SUICIDAL THOUGHTS, HEARING VOICES DIAGNOSES: - Disorder of urea cycle metabolism, unspecified - Other alf (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 - Schizoaffective disorder, unspecified - Essential (primary) hypertension - 1 Type 2 diabetes mellitus without complications - Gastro-esophageal reflux disease without esophagitis - Old myocardial infarction - Allergy status to sulfonamides status - Allergy status to oth drug/meds/biol subst status - FPC (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 09/06/2019 11:40 [facility] [place] TYPE: Emergency COMPLAINT: - MEDICAL CLEARANCE DIAGNOSES: - Old myocardial infarction - Essential (primary) hypertension - Allergy status to sulfonamides status - Auditory hallucinations - 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 - Allergy status to [...] Allergy status to sulfonamides status - 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 - Allergy status to [...] status to narcotic agent status - 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 - Schizophrenia, unspecified 05/10/2019 14:24 [facility] [place] TYPE: Emergency COMPLAINT: - MEDICAL CLEARANCE DIAGNOSES: - Acquired absence of other specified parts of digestive tract - 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 - Gastro-esophageal reflux disease without esophagitis - Other alf (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 - Allergy status to oth drug/meds/biol subst status - FPC (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 of oral [...] deficits - Old myocardial infarction - 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
== END 2019-10-23 09:17 | disposition home or self-care (01) ==
LOC: ED 08:01
DX: F22 Delusional disorders (principal); I10 Essential (primary) hypertension; K21.9 Gastro-esophageal reflux disease without esophagitis; E11.9 Type 2 diabetes mellitus without complications; I25.2 Old myocardial infarction; Z88.2 Allergy status to sulfonamides; Z88.8 Allergy status to other drugs, medicaments and biological substances; Z79.899 Other long term (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
CPT/HCPCS: 99284

== ENCOUNTER 2020-04-03 12:56 | Emergency (ER) | payer MEDICARE ==
[~2020-04-03] VITALS: Ht 170.2 cm; Wt 131.5 kg
--- OUTSIDE RECORDS SUMMARY | 2020-04-03 13:00 | XMS ---
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 No recent Security Events currently on file CRITERIA MET - 6 ED Visits in 6 Months - [facility] - Has Care Guidelines - PDMP CARE PROVIDERS WAYNE CAMARGO Internal Medicine 09/07/2019-Current PHONE: [phone] Kenny Palafox DO [facility] Current PHONE: [phone] Jose Ag Family Medicine 01/31/2019-Current PHONE: [phone] Guidelines [facility] Radha Negrete Guidelines Date: 03/13/2019 Care Coordination: Mental health services are being provided by [facility].\T\nbsp; Please contact [facility] with mental health concerns.\T\nbsp; Zuleima/Philippe Woods: [phone]\T\nbsp; Moshe: [phone]. Care History Medical/Surgical 10/23/2019 [facility] - CHW CONTACTED JONATHAN AT [facility]- PATIENT DOES NOT MEET THE ACT TEAM REQUIREMENTS FOR SERVICES DUE TO DX. - CHW SUGGESTED TO HAVE GUARDIANSHIP REVIEWED FOR PATIENT DUE TO ONGOING MENTAL HEALTH CONCERNS AND ED VISITS. - JONATHAN STATED SHE WOULD LOOK INTO THIS WITH PATIENT CURRENT CASE MANAGEMENT TEAM. - JONATHAN CAN BE CONTACTED AT [phone]. 10/15/2019 [facility] Patient still scheduled for 10/25/[address] Camargo.\T\nbsp; Phone restrictions.\T\nbsp; Not able to reach patient by phone. 10/01/2019 [facility] Patient\T\#39;s 09/28/[address] Camargo was rescheduled for 2019. E.D. VISIT COUNT (12 MO.) 22 [facility]. TOTAL 22 NOTE: Visits indicate total known visits. ED/UCC VISIT TRACKING (12 MO.) 04/03/2020 12:57 [facility] [place] TYPE: Emergency COMPLAINT: - FALL 10/23/2019 08:03 [facility] [place] TYPE: Emergency COMPLAINT: - MEDICAL CLEARANCE DIAGNOSES: - Type 2 diabetes mellitus without complications - Old myocardial infarction - Allergy status to sulfonamides status - Allergy status to other drugs, medicaments and biological sub - Essential (primary) hypertension - Gastro-esophageal reflux disease without esophagitis - Other penitentiary (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 - Delusional disorders 10/22/2019 16:37 [facility] [place] TYPE: Emergency COMPLAINT: - MEDICAL CLEARANCE DIAGNOSES: - Type 2 diabetes mellitus without complications - Gastro-esophageal reflux disease without esophagitis - Old myocardial infarction - Other penitentiary (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 - Essential (primary) hypertension - Allergy status to sulfonamides status - Allergy status to other drugs, medicaments and biological sub - Encounter for other general examination 10/20/2019 20:02 [facility] [place] TYPE: Emergency COMPLAINT: - MEDICAL CLEARANCE DIAGNOSES: - Gastro-esophageal reflux disease without esophagitis - Type 2 diabetes mellitus without complications - Encounter for other general examination - Other penitentiary (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 - Old myocardial infarction - Allergy status to other drugs, medicaments and biological sub - Essential (primary) hypertension - Allergy status to sulfonamides status 10/12/2019 11:18 [facility] [place] TYPE: Emergency COMPLAINT: - MEDICAL CLEARANCE DIAGNOSES: - Delusional disorders - Allergy status to sulfonamides status - Allergy status to other drugs, medicaments and biological sub - Gastro-esophageal reflux disease without esophagitis - Personal history of transient ischemic attack (TIA), and cere - Other penitentiary (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 - Old myocardial infarction - Essential (primary) hypertension - Type 2 diabetes mellitus with hyperglycemia 10/11/2019 10:06 [facility] [place] TYPE: Emergency COMPLAINT: - MEDICAL CLEARANCE DIAGNOSES: - Essential (primary) hypertension - Delusional disorders - Old myocardial infarction - Delusional disorders - Allergy status to sulfonamides status - 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 - Schizoaffective disorder, unspecified 09/28/2019 13:19 [facility] [place] TYPE: Emergency COMPLAINT: - MEDICAL CLEARANCE DIAGNOSES: - Type 2 diabetes mellitus without complications - Allergy status to other drugs, medicaments and biological sub - Old myocardial infarction - Other penitentiary (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 - Allergy status to sulfonamides status - Gastro-esophageal reflux disease without esophagitis - Essential (primary) hypertension - Suicidal ideations - Encounter for other administrative examinations 09/26/2019 10:06 [facility] [place] TYPE: Emergency COMPLAINT: - MEDICAL CLEARANCE DIAGNOSES: - Other penitentiary (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 - Personal history of transient ischemic attack (TIA), and cere - Gastro-esophageal reflux disease without esophagitis - Allergy status to sulfonamides status - Old myocardial infarction - Schizoaffective disorder, unspecified - Allergy status to other drugs, medicaments and biological sub - Essential (primary) hypertension - shelter (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 09/25/2019 13:35 [facility] [place] TYPE: Emergency COMPLAINT: - HEARING VOICES DIAGNOSES: - Type 2 diabetes mellitus without complications - Personal history of transient ischemic attack (TIA), and cere - Gastro-esophageal reflux disease without esophagitis - Schizoaffective disorder, unspecified - Suicidal ideations - 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 - Old myocardial infarction - Allergy status to sulfonamides status - Essential (primary) hypertension - Other penitentiary (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 - Allergy status to other drugs, medicaments and biological sub 09/18/2019 13:53 [facility] [place] TYPE: Emergency COMPLAINT: - MEDICAL CLEARANCE DIAGNOSES: - Type 2 diabetes mellitus without complications - Schizoaffective disorder, unspecified - Suicidal ideations - Allergy status to other drugs, medicaments and biological sub - Gastro-esophageal reflux disease without esophagitis - Old myocardial infarction - 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 - Essential (primary) hypertension - Rash and other nonspecific skin eruption - Allergy status to sulfonamides status - 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 09/18/2019 10:33 [facility] [place] TYPE: Emergency COMPLAINT: - SUICIDAL THOUGHTS, HEARING VOICES DIAGNOSES: - Disorder of urea cycle metabolism, unspecified - 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 - Schizoaffective disorder, unspecified - Essential (primary) hypertension - Type 2 diabetes mellitus without complications - Gastro-esophageal reflux disease without esophagitis - Old myocardial infarction - Allergy status to sulfonamides status - Allergy status to other drugs, medicaments and biological sub - 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 09/06/2019 11:40 [facility] [place] TYPE: Emergency COMPLAINT: - MEDICAL CLEARANCE DIAGNOSES: - Old myocardial infarction - Essential (primary) hypertension - Allergy status to sulfonamides status - Auditory hallucinations - 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 - Allergy status to other drugs, medicaments and biological sub - Type 2 diabetes mellitus without complications - Gastro-esophageal reflux disease without esophagitis 08/15/2019 15:26 [facility] [place] TYPE: Emergency COMPLAINT: - DIZZINESS DIAGNOSES: - Schizoaffective disorder, unspecified - Other penitentiary (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 - Type 2 diabetes mellitus without complications - Allergy status to other drugs, medicaments and biological sub - Old myocardial infarction - Essential (primary) hypertension - Gastro-esophageal reflux disease without esophagitis - Syncope and collapse - Allergy status to sulfonamides status 07/05/2019 09:03 [facility] [place] TYPE: Emergency COMPLAINT: - SYNCOPE DIAGNOSES: - Old myocardial infarction - Essential (primary) hypertension - Personal history of transient ischemic attack (TIA), and cere - 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 - Allergy status to narcotic agent status - Schizophrenia, unspecified - Allergy status to other drugs, medicaments and biological sub - Dizziness and giddiness - Allergy status to sulfonamides status 07/01/2019 10:58 [facility] [place] TYPE: Emergency COMPLAINT: - AMB SYNCOPE DIAGNOSES: - Allergy status to other drugs, medicaments and biological sub - Essential (primary) hypertension - Syncope and collapse - Personal history of transient ischemic attack (TIA), and cere - Old myocardial infarction - Allergy status to sulfonamides status - Other penitentiary (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 - Allergy status to narcotic agent status 05/14/2019 22:02 [facility] [place] TYPE: Emergency COMPLAINT: - VOICES IN HEAD DIAGNOSES: - Essential (primary) hypertension - Personal history of transient ischemic attack (TIA), and cere - Gastro-esophageal reflux disease without esophagitis - 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 - Old myocardial infarction - Suicidal ideations - Encounter for other general examination - Allergy status to sulfonamides status - Allergy status to other drugs, medicaments and biological sub - Allergy status to narcotic agent status - Other penitentiary (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 - Schizophrenia, unspecified 05/10/2019 14:24 [facility] [place] TYPE: Emergency COMPLAINT: - MEDICAL CLEARANCE DIAGNOSES: - Acquired absence of other specified parts of digestive tract - 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 - Gastro-esophageal reflux disease without esophagitis - Other penitentiary (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 - Allergy status to other drugs, medicaments and biological sub - shelter (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 of 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 - Allergy status to narcotic agent status - Schizophrenia, unspecified - Personal history of transient ischemic attack (TIA), and cere - Allergy status to sulfonamides status - Essential (primary) hypertension - Old myocardial infarction 05/08/2019 15:14 [facility] [place] TYPE: Emergency COMPLAINT: - MEDICAL CLEARANCE LIFEWAYS DIAGNOSES: - Suicidal ideations - Acquired absence of other specified parts of digestive tract - Allergy status to other drugs, medicaments and biological sub - Allergy status to narcotic agent status - Visual hallucinations - Gastro-esophageal reflux disease without esophagitis - Personal history of transient ischemic attack (TIA), and cere - Allergy status to sulfonamides status - Other penitentiary (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 - Essential (primary) hypertension - Auditory hallucinations 05/07/2019 10:38 [facility] TYPE: Emergency COMPLAINT: - CHEST PAIN DIAGNOSES: - Essential (primary) hypertension - Allergy status to other drugs, medicaments and biological sub - Gastro-esophageal reflux disease without esophagitis - Acquired absence of other specified parts of digestive tract - Personal history of transient ischemic attack (TIA), and cere - Old myocardial infarction - 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 [place] TYPE: Emergency COMPLAINT: - VOMITING, CHEST PAIN, WEAKNESS DIAGNOSES: - Allergy status to sulfonamides status - shelter (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 of 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 - Allergy status to other drugs, medicaments and biological sub - Nausea with vomiting, unspecified - Old myocardial infarction - Gastro-esophageal reflux disease without esophagitis - Essential (primary) hypertension - Dehydration - Schizoaffective disorder, unspecified - Hyperglycemia, unspecified Plus 3 More Visits INPATIENT VISIT TRACKING (12 MO.) 05/16/2019 11:50 [facility] [place] TYPE: Group Home COMPLAINT: - SCHIZOAFFECTIVE D/O DIAGNOSES: - Schizoaffective disorder, unspecified [email or web address]
== END 2020-04-03 14:22 | disposition home or self-care (01) ==
LOC: ED 12:56
DX: S80.212A Abrasion, left knee, initial encounter (principal); S80.211A Abrasion, right knee, initial encounter; T14.8XXA Other injury of unspecified body region, initial encounter; I10 Essential (primary) hypertension; K21.9 Gastro-esophageal reflux disease without esophagitis; E11.9 Type 2 diabetes mellitus without complications; Z88.2 Allergy status to sulfonamides; Z88.8 Allergy status to other drugs, medicaments and biological substances; Z79.899 Other long term (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; W19.XXXA Unspecified fall, initial encounter
CPT/HCPCS: 73562; 96374; 99283-25; J3010

== ENCOUNTER 2020-04-20 17:25 | Observation (INO) | payer MEDICARE ==
[~2020-04-20] VITALS: Ht 170.2 cm; Wt 121.6 kg
--- OUTSIDE RECORDS SUMMARY | ~2020-04-20 | XMS | Encounter Summary ---
Demographics + + + | Address | [address] | | | [place] [address] | + + + | Home Phone | | + + + | Preferred Language | Unknown | + + + | Marital Status | | + + + | Cheondoism Affiliation | 1013 | + + + | Race | Unknown | + + + | Ethnic Group | Unknown | + + + Author + + + | Author | [facility] | | | and [place] | + + + | Organization | [facility] | | | and [place] | + + + | Address | Unknown | + + + | Phone | Unavailable | + + + Support + + + + + | Name | Relationship | Address | Phone | + + + + + | Araceli Sibley | ECON | [place], [place] | | | | | [address] | | + + + + + Care Team Providers + +------+ + | Care Digitizer Operator Name | Role | Phone | + +------+ + PCP | Unavailable | + +------+ + Encounter Details +--------+ + + + + | Date | Type | Department | Care Team | Description | +--------+ + + + + | 02/28/ | Hospital | [facility] | Deon Gonzales | | | 2012 | Encounter | MED CTR SLEEP | MD [place] [address] | | | | | [place] [address] | [facility] | | | | | [place], [place] | [place] [address] | | | | | [address] | [phone] | | | | | [phone] | | | +--------+ + + + [...] documented as of this encounter Miscellaneous Notes Sleep Disorders - Deon Gonzales Jr., MD - 02/29/2012 2:36 PM PDTDATE: 02/29/2012 cc: [facility] Sleep Center Deon Gonzales Jr., MD, [facility] POSITIVE PRESSURE TITRATION STUDY CLINICAL INFORMATION: This is a 56-year-old female who is referred because of obstructive sleep apnea. The patient also has hypertension, gastroesophageal reflux, hypothyroidism, bi polar disorder, and obesity. Polysomnography performed in 2004 demonstrated significant obs tructive sleep apnea. Apnea- hypopnea index on that study was 14.6 and oxygen desaturation of 79% was noted. She was titrated to CPAP and treated with 11 cm of CPAP. She stopped wear ing the CPAP about a year ago. FINDINGS: Prior to the study the patient scored 18 points on the [place] Sleepiness Scale, which endorses a severe degree of recognized excessive daytime sleepiness. The patient rep orted this to be a usual night's sleep. SLEEP ARCHITECTURE: Lights out was recorded at 9:52 p.m. Lights on was recorded at 6:08 a. m. The latency to sleep onset was short at 2 minutes. The patient slept for 456.5 minutes o ut of 496 minutes of study time. Sleep efficiency is well within normal limits at 92%. The amount of N1 sleep was normal at 1.9% of the evening. The amount of N2 sleep was normal at 31.6% of the evening. The amount of N3 sleep was normal at 40.4% of the evening. The amount of rapid eye movement sleep was normal at 18.5% of the evening. The latency to rapid eye movement sleep was normal at 64 minutes. The patient spent 50.7% of the evening in the left lateral decubitus position. She spent 3 1.2% of the evening in the right lateral decubitus position. She spent 18.1% of the evening in the supine position. Sleep was minimally fragmented. The arousal index was 8.8. CARDIOPULMONARY MONITORING: The heart rate averaged in the high 60s and fundamentally was normal. The patient was somewhat claustrophobic. The Tucker FX nasal pillows were felt to be the mo st comfortable for her. The patient was titrated to CPAP of 15 cm. Obstructive apnea was ac tually well controlled at all CPAP levels, and at levels in 11 cm or higher, transitional c entral apneas were noted. Oxygen saturation fundamentally was normal throughout the evening . The high titration was based on snoring. It does appear, however, that CPAP in the 11-15 cm range will likely be required for control of obstructive breathing and elimination of s noring. LIMB MOVEMENT MONITORING: There were no periodic limb movements of sleep. INTERPRETATION: 1. THIS IS A SATISFACTORY CPAP TITRATION STUDY. a. CPAP in the 11-15 cm range appears to be required for control of obstructive breathing. SUGGESTIONS: 1. The principles of sleep hygiene should, of course, be reviewed with the patient. 2. CPAP in the 11 cm range or higher is advised. Deon Gonzales Jr., MD, FAASM Diplomate [place] [employer] Diplomate in Sleep Medicine Business Information Manager, [facility] Sleep Disorders Center Clinical Filter Assembler Katelin joy [facility], [facility] JOB #: [id number] EXT JOB #:[id number] EDITED: 03/03/2012 07:26 <Electronically Signed by Deon Gonzales MD> 03/03/12 0848 documented in this encounter Plan of Treatment +--------+---------+ + + + | Date | Type | Specialty | Care Team | Description | +--------+---------+ + + + | 04/24/ | Office | Cardiology | Dora De La Torre | | | 2019 | Visit | | [address] | | | | | | [address] | | | | | | [place] [address] | | | | | | [phone] | | | | | | | | +--------+---------+ + + + documented as of this encounter Visit Diagnoses Not on filedocumented in this encounter"
--- OUTSIDE RECORDS SUMMARY | ~2020-04-20 | XMS | Encounter Summary ---
Demographics + + + | Address | [address] | | | [place] [address] | + + + | Home Phone | | + + + | Preferred Language | Unknown | + + + | Marital Status | | + + + | Quaker Affiliation | 1013 | + + + [...] [place], [place] | | | | | [address] | | + + + + + Care Team Providers + +------+ + | Care Fixed Income Manager Name | Role | Phone | + +------+ + PCP | Unavailable | + +------+ + Encounter Details +--------+ + + + + | Date | Type | Department | Care Team | Description | +--------+ + + + + | 12/27/ | Hospital | [facility] | | | | 1995 | Encounter | MED CTR LABORATORY | | | | | | [address] | | | | | | [place] | | | | | | [address] | | | | | | [phone] | | | +--------+ + + + [...] [address] | | | | | | [place] [address] | | | | | | [phone] | | | | | | | | +--------+---------+ + + + documented as of this encounter Visit Diagnoses Not on filedocumented in this encounter"
--- OUTSIDE RECORDS SUMMARY | ~2020-04-20 | XMS | Encounter Summary ---
Demographics + + + | Address | [address] | | | [place] [address] | + + + | Home Phone | | + + + | Preferred Language | Unknown | + + + | Marital Status | | + + + | Nondenominational Affiliation | 1013 | + + + | Race | Unknown | + + + | Ethnic Group | Unknown | + + + Author + + + | Author | [facility] | | | and [place] | + + + | Organization | [facility] | | | and [place] | + + + | Address | Unknown | + + + | Phone | Unavailable | + + + Support + + + + + | Name | Relationship | Address | Phone | + + + + + | Araceli Sibley | ECON | [place] | | | | | [address] | | + + + + + Care Team Providers + +------+ + | Care Artificial Breeding Distributor Name | Role | Phone | + +------+ + | Natalee Andersen NP | PCP | | + +------+ + Reason for Visit + + + | Reason | Comments | + + + | New Patient | back pain; numbness in bilateral feet & left leg | + + + Evaluate & Treat (Routine) +--------+--------+ + + + + | Status | Reason | Specialty | Diagnoses / | Referred By | Referred To | | | | | Procedures | Contact | Contact | +--------+--------+ + + + + | Closed | | Neurosurgery | Diagnoses | Ganesh, | Brii, | | | | | Back pain | Natalee Hurst, | Frandy Simons DO | | | | | Procedures | PRODUCTION CONTROL MANAGER [address] | [address] | | | | | [place] OFFICE | | [address] | | | | | CONSULTATION | [address] | [place] | | | | | NEW/ESTAB | [facility], | [address] Phone: | | | | | PATIENT [address] | [place] [address] | [phone] | | | | | MIN | Phone: | Fax: | | | | | | [phone] | [phone] | | | | | | Fax: | | | | | | | [phone] | | +--------+--------+ + + + + Encounter Details +--------+---------+ + + + | Date | Type | Department | Care Team | Description | +--------+---------+ + + + | 05/02/ | Office | [facility] | Frandy Teresa, | Spondylolisthesis of | | 2013 | Visit | NEUROSURGERY [address] | DO [address] | lumbar region | | | | [address] | [address] [place], [place] | (Primary Dx); Lumbar | | | | [place], [place] | [id number] | stenosis; Lumbar | | | | [address] | | radicular pain; | | | | [phone] | | Lumbago | +--------+---------+ + + + Social History [...] + + + | Blood Pressure | 118/66 | 05/02/2014 11:02 AM | | | | | PDT | | + + + + + | Pulse | 62 | 05/02/2014 11:02 AM | | | | | PDT | | + + + + + | Temperature | - | - | | + + + + + | Respiratory Rate | 18 | 05/02/2014 11:02 AM | | | | | PDT | | + + + + + | Oxygen Saturation | - | - | | + + + + + | Inhaled Oxygen | - | - | | | Concentration | | | | + + + + + | Weight | 133.4 kg (294 lb) | 05/02/2014 11:02 AM | | | | | PDT | | + + + + + | Height | 170.2 cm (5' 7") | 05/02/2014 11:02 AM | | | | | PDT | | + + + + + | Body Mass Index | 46.05 | 05/02/2014 11:02 AM | | | | | PDT | | + + + + + documented in this encounter Patient Instructions Patient Instructions Frandy Teresa DO - 05/02/2014 11:32 AM PDTPlease follow-up with you r primary care physician for preoperative clearance. Please present for surgery when scheduled.Electronically signed by Frandy Teresa DO at 11:32 AM PDT documented in this encounter Progress Notes Frandy Teresa DO - 05/02/2014 11:33 AM PDTFormatting of this note might be different fro m the original. Frandy Teresa DO [address] [facility] [place], [place] [id number] FAX: NEUROSURGERY HISTORY AND PHYSICAL EXAMINATION CHIEF COMPLAINT: Chief Complaint Patient presents with New Patient back pain; numbness in bilateral feet & left leg HISTORY OF PRESENT ILLNESS: The patient is [...] symptoms worsen with standing, lifting, bending, walking. She has tried lifestyle modification, pain medications, [...] mg by mouth 2 times daily (with break fast & dinner). methocarbamol (ROBAXIN) 750 mg tablet Take 750 mg by mouth 3 times daily as needed. Multiple Vitamins-Minerals (CENTRUM SILVER PO) Take by mouth. Naproxen Sodium (ALEVE PO) TABS Two tablets by mouth twice daily as needed OLANZapine zydis (ZYPREXA ZYDIS) 15 MG disintegrating tablet Take 15 mg by mouth nightl y. Reading-3 Fatty Acids (FISH OIL CONCENTRATE) 1000 MG [...] joint arthritis, no rheumatoid arthritis. PHYSICAL EXAMINATION: Blood pressure 118/66, pulse 62, resp. rate 18, height 1.702 m (5' 7"), weight 133.358 kg ( 294 lb). Body mass index is 46.04 kg/(m^2). GENERAL: Cindy Arndt is in no acute distress with unlabored respirations. The adriana ent does not appear uncomfortable throughout the exam [...] the cervical or thoracic spine. There is n o major palpable deformity of the spine. The [...] has no apparent deficits with short or terminal carman memory. CRANIAL NERVES: II: Acuity is intact. Cardoza are full to confrontation. III, IV, : The pupils are reactive. Extraocular movements are intact. No ptosis is note d. V: Facial sensation is intact and symmetric. [...] Intrinsics 5 5 Ulnar Intrinsics 5 5 Provider Education Specialist Strength 5 5 Hip Flexion 5 4* [...] ASSESSMENT: NEUROSURGICAL DIAGNOSES: Encounter Diagnoses Name Primary? Spondylolisthesis of lumbar region Yes Lumbar stenosis Lumbar radicular pain Lumbago GENERAL DIAGNOSES: Past Medical History Diagnosis Date [...] optimizati on prior to presenting for surgery. I spent 1 hour in visit with Cindy Arndt today with the majority of time spent coun selling the patient on her diagnosis, options for her care, and coordinating her care. ELECTRONICALLY SIGNED BY: Frandy Teresa DO, 05/02/2014 11:42 documented in this encounter Miscellaneous Notes Miscellaneous - ONBASE SCAN [facility] - 05/02/2014 12:00 AM PDTElectronically signed by [facility] at 05/08/2014 8:57 AM PDTMiscellaneous - ONBASE SCAN [facility] - 05/02/2014 12:00 AM PDTEle ctronically signed by [facility] at 05/08/2014 8:56 AM PDTdocumented in this encounter Plan of [...] [address] | | | | | | [place] [address] | | | | | | [phone] | | | | | | | | +--------+---------+ + + + documented as of this encounter Visit Diagnoses + + | Diagnosis | + + | Spondylolisthesis of lumbar region - Primary Acquired spondylolisthesis | + + | Lumbar stenosis Spinal stenosis, lumbar region, without neurogenic claudication | + + | Lumbar radicular pain Thoracic or lumbosacral neuritis or radiculitis, unspecified | + + | Lumbago | + + documented in this encounter
--- OUTSIDE RECORDS SUMMARY | ~2020-04-20 | XMS | Encounter Summary ---
Demographics + + + | Address | [address] | | | [place] [address] | + + + | Home Phone | | + + + | Preferred Language | Unknown | + + + | Marital Status | | + + + | Zoroastrianism Affiliation | 1013 | + + + | Race | Unknown | + + + | Ethnic Group | Unknown | + + + Author + + + | Author | [facility] | | | and [place] | + + + | Organization | [facility] | | | and [place] | + + + | Address | Unknown | + + + | Phone | Unavailable | + + + Support + + + + + | Name | Relationship | Address | Phone | + + + + + | Araceli Sibley | ECON | [place], [place] | | | | | [address] | | + + + + + Care Team Providers + +------+ + | Care Title Checker Name | Role | Phone | + +------+ + PCP | Unavailable | + +------+ + Encounter Details +--------+ + + + + | Date | Type | Department | Care Team | Description | +--------+ + + + + | 06/30/ | Hospital | [facility] | | | | 1999 - | Encounter | MED CTR GENERIC PSY | | | | | | CONV DEPT [address] | | | | 07/05/ | | [address], | | | | 1999 | | [place] [id number] | | | | | | [phone] | | | +--------+ + + + [...] | | | | | [place] [address] | | | | | | [phone] | | | | | | | | +--------+---------+ + + + documented as of this encounter Visit Diagnoses Not on filedocumented in this encounter"
--- OUTSIDE RECORDS SUMMARY | ~2020-04-20 | XMS | Encounter Summary ---
Demographics + + + | Address | [address] | | | [place] [address] | + + + | Home Phone | | + + + | Preferred Language | Unknown | + + + | Marital Status | | + + + | Zoroastrian Affiliation | 1013 | + + + | Race | Unknown | + + + | Ethnic Group | Unknown | + + + Author + + + | Author | [facility] | | | and [place] | + + + | Organization | [facility] | | | and [place] | + + + | Address | Unknown | + + + | Phone | Unavailable | + + + Support + + + + + | Name | Relationship | Address | Phone | + + + + + | Araceli Sibley | ECON | [place], [place] | | | | | [address] | | + + + + + Care Team Providers + +------+ + | Care Marine Engineering Technicians Name | Role | Phone | + +------+ + PCP | Unavailable | + +------+ + Encounter Details +--------+ + + + + | Date | Type | Department | Care Team | Description | +--------+ + + + + | 09/23/ | Hospital | [facility] | | | | 1994 | Encounter | MED CTR LABORATORY | | | | | | [address] | | | | | | [place] | | | | | | [address] | | | | | | [phone] | | | +--------+ + + + [...] [address] | | | | | | [place] [address] | | | | | | [phone] | | | | | | | | +--------+---------+ + + + documented as of this encounter Visit Diagnoses Not on filedocumented in this encounter"
--- OUTSIDE RECORDS SUMMARY | ~2020-04-20 | XMS | Encounter Summary ---
Demographics + + + | Address | [address] | | | [place] [address] | + + + | Home Phone | | + + + | Preferred Language | Unknown | + + + | Marital Status | | + + + | Amish Affiliation | 1013 | + + + | Race | Unknown | + + + | Ethnic Group | Unknown | + + + Author + + + | Author | [facility] | | | and [place] | + + + | Organization | [facility] | | | and [place] | + + + | Address | Unknown | + + + | Phone | Unavailable | + + + Support + + + + + | Name | Relationship | Address | Phone | + + + + + | Araceli Sibley | ECON | [place], [place] | | | | | [address] | | + + + + + Care Team Providers + +------+ + | Care Director Mobile Name | Role | Phone | + +------+ + PCP | Unavailable | + +------+ + Encounter Details +--------+ + + + + | Date | Type | Department | Care Team | Description | +--------+ + + + + | 12/27/ | Hospital | [facility] | | | | 1995 | Encounter | MED CTR LABORATORY | | | | | | [address] | | | | | | [place] | | | | | | [address] | | | | | | [phone] | | | +--------+ + + + [...] [address] | | | | | | [place] [address] | | | | | | [phone] | | | | | | | | +--------+---------+ + + + documented as of this encounter Visit Diagnoses Not on filedocumented in this encounter"
--- OUTSIDE RECORDS SUMMARY | ~2020-04-20 | XMS | Encounter Summary ---
Demographics + + + | Address | [address] | | | [place] [address] | + + + | Home Phone [...] [place] | | | | | [address] | | + + + + + Care Team Providers + +------+ + | Care Second Cook And Baker Name | Role | Phone | + [...] | +--------+ + + + + | 08/13/ | Documentati | [facility] | Katharine Moncada, | Other (urgent | | 2019 | on | CARDIOLOGY [place] | Technologist | report) | | | | [address] | | | | | | [place] | | | | | | [address] | | | | | | [phone] | | | +--------+ + + + [...] encounter Progress Notes Katharine Moncada, Technologist - 08/13/2019 9:12 AM PDTReceived urgent report 08/13/19 Pt had a self trigger 08/12/19 at 13:34 92 BPM 30 day monitor was placed 08/09/19 Medications: none Called Pt Is not doing Very and very tired and out of breath Will continue to monitor Please [...] [address] | | | | | | [place] [address] | | | | | | [phone] | | | | | | | | +--------+---------+ + + + documented as of this encounter Visit Diagnoses Not on filedocumented in this encounter"
--- OUTSIDE RECORDS SUMMARY | ~2020-04-20 | XMS | Encounter Summary ---
Demographics + + + | Address | [address] | | | [place] [address] | + + + | Home Phone | | + + + | Preferred Language | Unknown | + + + | Marital Status | | + + + | Taoism Affiliation | 1013 | + + + | Race | Unknown | + + + | Ethnic Group | Unknown | + + + Author + + + | Author | [facility] | | | and [place] | + + + | Organization | [facility] | | | and [place] | + + + | Address | Unknown | + + + | Phone | Unavailable | + + + Support + + + + + | Name | Relationship | Address | Phone | + + + + + | Araceli Sibley | ECON | [place] | | | | | [address] | | + + + + + Care Team Providers + +------+ + | Care Rhinestone Setter Name | Role | Phone | + [...] | 08/05/ | Telephone | [facility] | Frandy Teresa, | Other | | 2013 | | NEUROSURGERY [address] | DO [address] | | | | | [address] | [address] [place], [place] | | | | | [place], [place] | [id number] | | | | | [address] | | | | | | [phone] | | | +--------+ + + + [...] mented in this encounter Plan of Treatment +--------+---------+ + + + | Date | Type | Specialty | Care Team | Description | +--------+---------+ + + + | 04/24/ | Office | Cardiology | Dora De La Torre | | | 2019 | Visit | | [address] | | | | | | [address] | | | | | | [place] [address] | | | | | | [phone] | | | | | | | | +--------+---------+ + + + documented as of this encounter Visit Diagnoses Not on filedocumented in this encounter"
--- OUTSIDE RECORDS SUMMARY | ~2020-04-20 | XMS | Encounter Summary ---
Demographics + + + | Address | [address] | | | [place] [address] | + + + | Home Phone | | + + + | Preferred Language | Unknown | + + + | Marital Status | | + + + | Jew Affiliation | 1013 | + + + | Race | Unknown | + + + | Ethnic Group | Unknown | + + + Author + + + | Author | [facility] | | | and [place] | + + + | Organization | [facility] | | | and [place] | + + + | Address | Unknown | + + + | Phone | Unavailable | + + + Support + + + + + | Name | Relationship | Address | Phone | + + + + + | Araceli Sibley | ECON | [place] | | | | | [address] | | + + + + + Care Team Providers + +------+ + | Care Press Assistant And Feeder Name | Role | Phone | + [...] | | | spondylolist | | [address] | | | | | hesis | | [place], | | | | | Spinal | | [place] [address] | | | | | stenosis, | | Phone: | | | | | lumbar | | [phone] | | | | | region, | | Fax: | | | | | without | | [phone] | | | | | neurogenic | [...] | | | | | | | [place] | | | | | | [...] | | | | | | ION [place] | | | | | | | [...] | | | | | | SEG [place] | | | | | | | [...] + + + + | 07/02/ | Anesthesia | [facility] | Zen Mccord | | | 2013 | Event | MED CTR [facility] OP | MD Ksenia [address] | | | | | [address] | [address] [place] | | | | | [place] | [phone] | | | | | [phone] | | | | | | [phone] | | | +--------+ + + + + Anesthesia Record + + + + + | Procedure Name | Responsible | Anesthesia Start | Anesthesia Stop Time | | | Anesthesiologist | Time | | + + + + + | MIS L5-S1 | | 07/02/14 1212 | 07/02/14 1445 | | TRANSFORAMINAL | | | | | LUMBAR INTERBODY | | | | | FUSION (N/A Spine | | | | | Lumbar) | | | | + + + + + +----+---+ + + | Da | T | Event | Comment | | te | i | | | | | m | | | | | e | | | +----+---+ + + | 09 | 1 | | | | /0 | 1 | | | | 9/ | 3 | | | | 20 | 5 | | | | 14 | | | | +----+---+ + + | | 1 | An Checkout | Pre-use anesthesia machine/equipment checkout. | | | 1 | | | | | 3 | | | | | 5 | | | +----+---+ + + | | 1 | An Start | Reassessment prior to anesthesia induction/procedure. | | | 2 | | | | | 1 | | | | | 2 | | | +----+---+ + + | | 1 | Antibiotic | | | | 2 | Given | | | | 1 | | | | | 4 | | | +----+---+ + + | | 1 | an russell now | In Room | | | 2 | | | | | 1 | | | | | 6 | | | +----+---+ + + | | 1 | Preoxygenat | | | | 2 | ed | | | | 2 | | | | | 3 | | | +----+---+ + + | | 1 | An | | | | 2 | Induction | | | | 2 | | | | | 5 | | | +----+---+ + + | | 1 | An | Easy mask AW. DL times one with [facility] easy view | | | 2 | Intubation | | | | 2 | | | | | 6 | | | +----+---+ + + | | 1 | AN Bite | | | | 2 | Block | | | | 2 | | | | | 7 | | | +----+---+ + + | | 1 | Granger | | | | 2 | 43-degrees | | | | 3 | | | | | 1 | | | +----+---+ + + | | 1 | Granger off | | | | 4 | | | | | 0 | | | | | 9 | | | +----+---+ + + | | 1 | Breathing | | | | 4 | Spontaneous | | | | 0 | ly | | | | 9 | | | +----+---+ + + | | 1 | AN No | TOF 4/4 with sustained tetanus. | | | 4 | Residual | | | | 1 | NMB | | | | 0 | | | +----+---+ + + | | 1 | Oropharynx | | | | 4 | Suctioned | | | | 1 | | | | | 1 | | | +----+---+ + + | | 1 | Moving | | | | 4 | Purposefull | | | | 1 | y | | | | 7 | | | +----+---+ + + | | 1 | Extubated | | | | 4 | Awake | | | | 2 | | | | | 9 | | | +----+---+ + + | | 1 | an russell now | Put CPAP on patient sats coming up | | | 4 | | | | | 3 | | | | | 9 | | | +----+---+ + + | | 1 | An Stop | Patient handed off to recovery nurse. | | | 4 | | | | | 5 | | | +----+---+ + + +------+ | Meds | +------+ + + + | Name | Total | + + + | midazolam | 2 mg | + + + | lidocaine 2% (PF) | 60 mg | + + + | propofol | 300 mg | + + + | ondansetron | 4 mg | + + + | Phenylephrine 10mg/mL VIAL | 100 mcg | + + + | HYDROmorphone | 1 mg | + + + | neostigmine | 1.5 mg | + + + | ceFAZolin in dextrose (ANCEF) | 2 g | | IVPB 2 g | | + + + | rocuronium | 50 mg | + + + | dexmedetomidine (Infusion) | 100 mcg | + + + | ePHEDrine | 37.5 mg | + + + | vasopressin | 4 Units | + + + | lactated ringers (LR) infusion | 300 mL | + + + | sodium chloride 0.9% (NS) | 1,000 mL | | infusion | | + + + + + | Name | + + | N2O Flow Rate (L/Min) | + + | O2 Flow Rate (L/Min) | + + | Insp O2 | + + | Exp JAMAL | + + | Air Flow Rate (L/Min) | + + + + | No blood administrations on file. | + + +--------+ + + + | Type | Details | Placement | Removal | +--------+ + + + | [READ | 06/25/14; 1358; Hematology, | 06/25/14 1358 by | 07/05/142011 by | | ONLY] | Chemistry, Coagulation, Blood | Russell Butler RN | Germaine Louis RN | | | Bank; 07/05/142011 | | | | Periph | | | | | eral | | | | | IV - | | | | | Single | | | | | Lumen | | | | | | | | | +--------+ + + + | [READ | 07/02/14; 1049; Blood Bank; | 07/02/14 1049 by | 07/03/14 0900 by | | ONLY] | 07/03/14; 0900 | Doris Jeffries | Maria T Neff RN | | | | | | | Periph | | | | | eral | | | | | IV - | | | | | Single | | | | | Lumen | | | | | | | | | +--------+ + + + | Airway | Placement Date: 07/02/14; | 07/02/14 1226 by | 07/02/14 1429 by | | | Placement Time: 1226; Mask | Zen Mccord, | Zen Mccord, | | | Ventilation: EZ; Airway Grade: I; | MD | MD | | | Successful Technique: Mac; | | | | | Laryngoscope Blade Size: 3; | | | | | Airway Type: endotracheal, oral, | | | | | cuffed, disposable; Size: 6.5; | | | | | Airway Tube Secured At: 0.23 m | | | | | (9.06"); Tube Reference Point: | | | | | teeth, secure and patent; Trauma: | | | | | none; Other Equipment: tooth | | | | | guard; Placement Check: verified | | | | | by capnography, verified by | | | | | auscultation; Placed By: | | | | | Anesthesiologist; Removal Date: | | | | | 07/02/14; Removal Time: 1429 | | | +--------+ + + + | Read | 07/02/14; 1310; back; 07/05/14; | 07/02/14 1310 by | 07/05/14 2012 by | | only - | 2012 | Bailey Tsai RN | Germaine Louis RN | | | | | | | Incisi | | | | | on | | | | +--------+ + + + documented in this encounter Social History + +-------+ +--------+------+ | Tobacco [...] + + documented as of this encounter OR Notes Anesthesia Postprocedure Evaluation - Zen Mccord MD - 07/02/2014 2:47 PM PDTForma tting of this note might be different from the original. ANESTHESIA POSTANESTHESIA EVALUATION Cindy Arndt 58 y.o. female 1955 [id number] Procedure: Procedure(s):MIS L5-S1 TRANSFORAMINAL LUMBAR INTERBODY FUSION Filed Vitals: 07/02/14 1435 07/02/14 1440 07/02/14 1445 BP: 127/49 128/45 118/43 Pulse: 96 99 99 Temp: Resp: 15 14 13 SpO2: 91% 92% 93% Cooperates? Yes Mental Status Performs simple tasks. Respiratory Satisfactory - Airway patent (self maintained). Cardiovascular Satisfactory Blood pressure and heart rate acceptable Temperature Satisfactory Pain Satisfactory N/V Control Satisfactory Hydration Satisfactory No signs of dehydration Complications None apparent Electronically signed by Zen Mccord MD 07/02/2014 14:55 [facility] nesthesia Preproc edure Evaluation - Zen Mccord MD - 07/02/2014 8:36 AM PDTFormatting of this note m ight be different from the original. ANESTHESIA PREANESTHESIA EVALUATION Cindy Arndt 58 y.o. female 1955 [id number] Scheduled procedure LAMINECTOMY PLIF/TLIF INSTRUMENTATION [184] - MIS L5-S1 TRANSFORAMINAL LUMBAR INTERBODY FUSION Medical history, anesthesia, medications, allergy histories reviewed. ECG reviewed. Labs reviewed. ROS / Med History Ane (+) PONV. NPO status verified. CV (+) hypertension.(-) CAD, past NV, CHF, congenital heart disease, pulmonary hypertension, p acemaker, AICD, echocardiogram, AAA. (+) Dysrhythmias (-) valvular disease (-) PVD Exercis e tolerance <4 METS. Pulm (+) sleep apnea. Neuro (+) headaches, back pain. Psych (+) anxiety, depression, bipolar disorder, schizophrenia. (-) substance abuse. Renal Negative except where noted below. (-) renal/ureteral stones, pyelonephritis, chronic renal insufficiency, acute renal failure , end-stage renal disease GI/Hep (+) reflux/GERD. (-) hypercholesterolemia, hiatal hernia. (-) hepatitis. Endo (+) hypothyroidism. (-) hyperthyroidism, goiter. (+) Diabetes:type 2, NIDDM. (+) obesity: morbid BMI 40+. Other (-) anemia, thrombocytopenia, autoimmune disease, arthritis, coagulopathy. Cancer Negative except where noted below. (-) breast cancer, bladder cancer, colon cancer, lung cancer, prostate cancer. Physical Exam Airway MP III, TM >3 FB, Mouth opening >2 FB. Neck: full ROM, extends >30 degrees. Jaw protru azeem normal. Dental Grossly normal except where noted below.; (+) Age appropriate dentition. CV Rhythm regular. Rate Normal. (-) murmur, carotid bruit, peripheral edema, JVD and weak pulses. Pulm Clear to auscultation bilaterally. (-) wheezing, rhonchi, decreased breath sounds, rales and stridor. Neuro Grossly normal. Anesthesia Plan ASA 4 Type: General. Induction: Intravenous. Potential problems: None anticipated. Monitors: Standard ASA monitors. Consent statement:Anesthetic plan, alternatives, risks and benefits discussed with patient and family. Risks discussed included (but were not limited to): dental injury, pain, sore throat, infec tion, voice injury, muscle aches, nausea, respiratory events, . Consenting person understands and agrees to proceed. Risks and benefits of general anesthetic discussed with patient and available family member s. They agree to proceed, answered all questions.. Electronically Signed by: Zen Mccord MD ESig date/time: 07/02/2014 11:35 documented in this encounter Plan of Treatment +--------+---------+ + + + | Date | Type | Specialty | Care Team | Description | +--------+---------+ + + + | 04/24/ | Office | Cardiology | Dora De La Torre | | | 2019 | Visit | | CAROLINE Mendez [address] | | | | | | [address] | | | | | | [place] [address] | | | | | | [phone] | | | | | | | | +--------+---------+ + + + documented as of this encounter Visit Diagnoses Not on filedocumented in this encounter Administered Medications + +--------+ +------+------+------+ | Medication Order | MAR | Action | Dose | Rate | Site | | | Action | Date | | | | + +--------+ +------+------+------+ | ceFAZolin in dextrose (ANCEF) | Given | 07/02/20 | 2 g | | | | IVPB 2 g 2 g, Intravenous, | | 14 12:14 | | | | | Administer over 30 Minutes, Prior | | PM PDT | | | | | to Incision, Starting Tue07/02/14 | | | | | | | at 0947, For 1 dose, Administer | | | | | | | within 1 hour of surgical | | | | | | | incision., Pre-op | | | | | | + +--------+ +------+------+------+ +---+---+ | | | +---+---+ + +---------+ +--------+ +---+ | dexmedetomidine (PRECEDEX) 400 | New Bag | 07/02/20 | 100 | 25 mL/hr | | | mcg in 100 mL NS infusion | | 14 12:30 | mcg/hr | | | | Intravenous, CONTINUOUS PRN, | | PM PDT | | | | | Starting Tue07/02/14 at 1230, | | | | | | | Anesthesia Intra-op | | | | | | + +---------+ +--------+ +---+ +---+---+ | | | +---+---+ + +-------+ +---------+---+---+ | ePHEDrine 50 mg/mL injection | Given | 07/02/20 | 12.5 mg | | | | Patrice TORRES 07/02/14 at 1300, | | 14 1:44 | | | | | Anesthesia Intra-op | | PM PDT | | | | + +-------+ +---------+---+---+ +-------+ +---------+---+---+ | Given | 07/02/20 | 12.5 mg | | | | | 14 1:42 | | | | | | PM PDT | | | | +-------+ +---------+---+---+ | Given | 07/02/20 | 12.5 mg | | | | | 14 1:00 | | | | | | PM PDT | | | | +-------+ +---------+---+---+ +---+---+ | | | +---+---+ + +-------+ +------+---+---+ | HYDROmorphone (PF) (DILAUDID) 2 | Given | 07/02/20 | 1 mg | | | | mg/mL injection PRN, Pain, | | 14 12:24 | | | | | Starting Tue07/02/14 at 1224, | | PM PDT | | | | | Anesthesia Intra-op | | | | | | + +-------+ +------+---+---+ +---+---+ | | | +---+---+ + +---------+ +----+---+---+ | lactated ringers (LR) infusion | New Bag | 07/02/20 | mL | | | | at 10-100 mL/hr, Intravenous, | | 14 1:36 | | | | | CONTINUOUS, Starting Tue07/02/14 | | PM PDT | | | | | at 1015, TKO., Pre-op | | | | | | + +---------+ +----+---+---+ +---+---+ | | | +---+---+ + +-------+ +-------+---+---+ | lidocaine (PF) 2% injection | Given | 07/02/20 | 60 mg | | | | PRN, Starting Tue07/02/14 at 1225, | | 14 12:25 | | | | | Anesthesia Intra-op | | PM PDT | | | | + +-------+ +-------+---+---+ +---+---+ | | | +---+---+ + +-------+ +------+---+---+ | midazolam (VERSED) 1 mg/mL | Given | 07/02/20 | 2 mg | | | | injection Intravenous, PRN, | | 14 12:12 | | | | | Anxiety, Starting Tue07/02/14 at | | PM PDT | | | | | 1212, Anesthesia Intra-op | | | | | | + +-------+ +------+---+---+ +---+---+ | | | +---+---+ + +-------+ +--------+---+---+ | neostigmine (PROSTIGMIN) 1 | Given | 07/02/20 | 1.5 mg | | | | mg/mL injection PRN, Starting | | 14 2:09 | | | | | 07/02/14 at 1409, Anesthesia | | PM PDT | | | | | Intra-op | | | | | | + +-------+ +--------+---+---+ +---+---+ | | | +---+---+ + +-------+ +------+---+---+ | ondansetron (ZOFRAN) injection | Given | 07/02/20 | 4 mg | | | | PRN, Nausea, Vomiting, Starting | | 14 12:25 | | | | | 07/02/14 at 1225, Anesthesia | | PM PDT | | | | | Intra-op | | | | | | + +-------+ +------+---+---+ +---+---+ | | | +---+---+ + +-------+ +---------+---+---+ | phenylephrine (PITER-SYNEPHRINE) | Given | 07/02/20 | 100 mcg | | | | 10 mg/mL injection Intravenous, | | 14 1:04 | | | | | PRN, Starting Tue07/02/14 at 1304, | | PM PDT | | | | | Anesthesia Intra-op | | | | | | + +-------+ +---------+---+---+ +---+---+ | | | +---+---+ + +-------+ +-------+---+---+ | propofol (DIPRIVAN) injection | Given | 07/02/20 | 50 mg | | | | PRN, Starting Tue07/02/14 at 1225, | | 14 1:05 | | | | | Anesthesia Intra-op | | PM PDT | | | | + +-------+ +-------+---+---+ +-------+ +-------+---+---+ | Given | 07/02/20 | 50 mg | | | | | 14 12:56 | | | | | | PM PDT | | | | +-------+ +-------+---+---+ | Given | 07/02/20 | 50 mg | | | | | 14 12:44 | | | | | | PM PDT | | | | +-------+ +-------+---+---+ +---+---+ | | | +---+---+ + +-------+ +-------+---+---+ | rocuronium (ZEMURON) injection | Given | 07/02/20 | 50 mg | | | | Intravenous, PRN, Starting Tue | | 14 12:25 | | | | | 07/02/14 at 1225, Anesthesia | | PM PDT | | | | | Intra-op | | | | | | + +-------+ +-------+---+---+ +---+---+ | | | +---+---+ + +-------+ +---------+---+---+ | vasopressin (PITRESSIN) | Given | 07/02/20 | 1 Units | | | | injection Intravenous, PRN, | | 14 1:44 | | | | | Starting 07/02/14 at 1312, | | PM PDT | | | | | Anesthesia Intra-op | | | | | | + +-------+ +---------+---+---+ +-------+ +---------+---+---+ | Given | 07/02/20 | 1 Units | | | | | 14 1:26 | | | | | | PM PDT | | | | +-------+ +---------+---+---+ | Given | 07/02/20 | 2 Units | | | | | 14 1:12 | | | | | | PM PDT | | | | +-------+ +---------+---+---+ +---+---+ | | | +---+---+ documented in this encounter
--- OUTSIDE RECORDS SUMMARY | ~2020-04-20 | XMS | Encounter Summary ---
Demographics + + + | Address | [address] | | | [place] [address] | + + + | Home Phone [...] [place], [place] | | | | | [address] | | + + + + + Care Team Providers + +------+ + | Care Party Plan Demonstrator Name | Role | Phone | + +------+ + PCP | Unavailable | + +------+ + Encounter Details +--------+ + + + + | Date | Type | Department | Care Team | Description | +--------+ + + + + | 02/02/ | Hospital | [facility] | Serafin Bautista | | | 2011 | Encounter | MED CTR XRAY [address] | | | | | [place] | [place] | | | | | [place] [address] | [address] | | | | | [phone] | | | +--------+ + + + [...] +--------+---------+ + + + | 07/02/ | Office | Cardiology | Dora De La Torre | | | 2019 | Visit | | [address]OLINE Mendez [address] | | | | | | [address] | | | | | | [place] [address] | | | | | | [phone] | | | | | | | [...] Performed At | + + + | [facility] | [facility] | | [address] | [facility] | | PROCEDURE: EPIDURAL STEROID | DIA IMG | | INJECTION ICD-9 code 724.4 [...] Transcribed Date/Time: | | | 02/03/2012 18:45 Slitter Processed Film: MAHIN <Electronically Signed | | | by Serafin Bautista MD> 02/14/12 0916 | | + + + + + | Procedure Note | + + | Juan, Rad Conversion - 11/30/2013 5:06 PM [facility] | | Diagnostic Imaging Department | | [address] [facility] [place] | | | | | | [...] | Transcribed Date/Time: 02/03/2012 18:45 | | Slitter Processed Film: | | <Electronically Signed by Serafin Bautista MD> 02/14/12 0916 | + + + +---------+ + + | Performing | Address | City/State[facility] | Phone Number | | Organization | | | | + +---------+ + + | [place] | | | | | [facility] | | | | + +---------+ + + documented in this encounter Visit Diagnoses Not on filedocumented in this encounter"
--- OUTSIDE RECORDS SUMMARY | ~2020-04-20 | XMS | Encounter Summary ---
Demographics + + + | Address | [address] | | | [place] [address] | + + + | Home Phone | | + + + | Preferred Language | Unknown | + + + | Marital Status | | + + + | Christian Affiliation | 1013 | + + + | Race | Unknown | + + + | Ethnic Group | Unknown | + + + Author + + + | Author | [facility] | | | and [place] | + + + | Organization | [facility] | | | and [place] | + + + | Address | Unknown | + + + | Phone | Unavailable | + + + Support + + + + + | Name | Relationship | Address | Phone | + + + + + | Araceli Sibley | ECON | [place] | | | | | [address] | | + + + + + Care Team Providers + +------+ + | Care Layout Mechanic Name | Role | Phone | + +------+ + | Hari Samson DO | PCP | | + +------+ + Reason for Visit +--------+--------+ + | Reason | Onset | Comments | | | Date | | +--------+--------+ + | Other | 02/05/ | Patient problems. | | | 2019 | | +--------+--------+ + Encounter Details +--------+ + + + + | Date | Type | Department | Care Team | Description | +--------+ + + + + | 02/05/ | Telephone | [facility] | Ashley Chávez | Other (Patient | | 2020 | | CARDIOLOGY GENESIS Abad, Protective Signal Repairer Helper | ) | | | | [address] | | | | | | [place] | | | | | | [address] | | | | | | [phone] | | | +--------+ + + + [...] this encounter Miscellaneous Notes Telephone Encounter - StefanieDora juarez, [place] - 02/07/2020 3:12 PM PDTI called her back about her symptoms and she reports though thinks still racing, maybe better, and seems very similar to what was going on when I saw her last, and rate not very fast. She reports mentally she feels good, though a little anxious, and sleeping better, 6-7 hrs per night. I discussed with her I wanted to see Echo first, and also see her in the clinic before I m cierra any medications changes, and she said she understood and could wait until she see me nex t week . elephone Enco Ashley Wong, Protective Signal Repairer Helper - 02/06/2020 2:53 PM PDTPatient states that h er Heart is still racing, she is taking metoprolol the way it she was told most recently by Dora Mendez, but she is still weak. She says her heart goes so fast that she thinks her heart stops sometimes, or skips a beat. Patient says she will get her ECHO tomorrow, and she is wondering if there is anything she can do in the mean time until her apt next . Patient states "I need Dora Mendez's opinion". Please advise. Thank you! (sent to Dora Mendez) JPolloW:SAFETY LAMP KEEPER-AAMA. doc umented in this encounter Plan of Treatment +--------+---------+ + + + | Date | Type | Specialty | Care Team | Description | +--------+---------+ + + + | 04/24/ | Office | Cardiology | Dora De La Torre | | 2019 | Visit | | [address]INE Mendez [address] | | | | | | [address] | | | | | | [place] [address] | | | | | | [phone] | | | | | | | | +--------+---------+ + + + documented as of this encounter Visit Diagnoses Not on filedocumented in this encounter
--- OUTSIDE RECORDS SUMMARY | ~2020-04-20 | XMS | Encounter Summary ---
Demographics + + + | Address | [address] | | | [place] [address] | + + + | Home Phone | | + + + | Preferred Language | Unknown | + + + | Marital Status | | + + + | Nondenominational Affiliation | 1013 | + + + | Race | Unknown | + + + | Ethnic Group | Unknown | + + + Author + + + | Author | [facility] | | | and [place] | + + + | Organization | [facility] | | | and [place] | + + + | Address | Unknown | + + + | Phone | Unavailable | + + + Support + + + + + | Name | Relationship | Address | Phone | + + + + + | Araceli Sibley | ECON | [place] | | | | | [address] | | + + + + + Care Team Providers + +------+ + | Care Tourist Agent Name | Role | Phone | + +------+ + | Natalee Andersen NP | PCP | | + +------+ + Reason for Visit +--------+--------+ + | Reason | Onset | Comments | | | Date | | +--------+--------+ + | Other | 07/08/ | post op call | | | 2013 | | +--------+--------+ + Encounter Details +--------+ + + + + | Date | Type | Department | Care Team | Description | +--------+ + + + + | 07/08/ | Telephone | [facility] | Frandy Teresa, | Other (post op call | | 2013 | | NEUROSURGERY [address] | DO [address] | ) | | | | [address] [facility] [address] | [address] [place], [place] | | | | | [place], [place] | [id number] | | | | | [address] | | | | | | [phone] | | | +--------+ + + + [...] Encounter - Shayne Aragon Cert MA - 07/08/2014 11:04 AM [facility] SHAYNE ARAGON documented in this encounter Plan [...] | | | | | [place] [address] | | | | | | [phone] | | | | | | | | +--------+---------+ + + + documented as of this encounter Visit Diagnoses Not on filedocumented in this encounter"
--- OUTSIDE RECORDS SUMMARY | ~2020-04-20 | XMS | Encounter Summary ---
Demographics + + + | Address | [address] | | | [place] [address] | + + + | Home Phone [...] [place] | | | | | [address] | | + + + + + Care Team Providers + +------+ + | Care Education Managers Name | Role | Phone | + +------+ + | Thierry Fry MD | PCP | | + +------+ + Encounter Details +--------+ + + + + | Date | Type | Department | Care Team | Description | +--------+ + + + + | 03/06/ | Hospital | [facility] | Katharine Cardona PA-C | Essential | | 2015 | Encounter | MED CTR LABORATORY | [address] | hypertension | | | | [address] [place] | [place] [address] | | | | | [place], [place] | [phone] | | | | | [address] | | | | | | [phone] | | | +--------+ + + + [...] 0 | | | | (VITAMIN D-3) 93267 | mouth Once a week. | | [...] + + + +---------+ + + | Elyria-3 Fatty | Take 1,000 mg by | 60 each | 5 | 03/09/20 | | | Acids (FISH OIL | mouth 2 times daily. | | | 15 | 9 | | CONCENTRATE) 1000 MG | | | | | | | CAPS | | | | | | + + + +---------+ + + | Elyria-3 Fatty | Take 1,000 mg by | [...] | 04/24/ | Office | Cardiology | RoxannmarianIsacc juarez | | | 2019 | Visit | | CAR[address]INE Mendez [address] | | | | | | [address] | | | | | | [place] [address] | | | | | | [phone] | | | | | | | [...] | | | FILTRATION | mL/min/1.73m2 | [facility] | | | [facility] [place] [facility] | RATE,ESTIMATED | | MEDICAL | | | | mL/min/1.68b3Dvoj than | | CENTER - | | [...] ST. | [address] | [place] | [phone] | | [facility] | | [address] | | | - LABORATORY | | | | + + + + + documented in this encounter Visit Diagnoses + + | Diagnosis | + + | Essential hypertension Unspecified essential hypertension | + + documented in this encounter"
--- OUTSIDE RECORDS SUMMARY | ~2020-04-20 | XMS | Encounter Summary ---
Demographics + + + | Address | [address] | | | [place] [address] | + + + | Home Phone [...] [place] | | | | | [address] | | + + + + + Care Team Providers + +------+ + | Care Event Specialist Name | Role | Phone | [...] + + | 08/14/ | Telephone | [facility] | Ashley Chávez | Other (Patient was | | 2018 | | CARDIOLOGY [place] Abad, Electronic Sales And Service Technician | anxious about urgent | | | | [address] | | reports. ) | | | | [place] | | | | | | [address] | | | | | | [phone] | | | +--------+ + + + [...] Miscellaneous Notes Telephone Encounter - Ashley Chávez, Electronic Sales And Service Technician - 08/14/2019 9:16 AM Seferino foster called [...] for the time being. Patient stated understanding. JDW:GARMENT FOLDER-AAMA. [facility] umented in this encounter Plan of [...] [address] | | | | | | [place] [address] | | | | | | [phone] | | | | | | | | +--------+---------+ + + + documented as of this encounter Visit Diagnoses Not on filedocumented in this encounter"
--- OUTSIDE RECORDS SUMMARY | ~2020-04-20 | XMS | Encounter Summary ---
Demographics + + + | Address | [address] | | | [place] [address] | + + + | Home Phone [...] [place] | | | | | [address] | | + + + + + Care Team Providers + +------+ + | Care Resource Paraprofessional Name | Role | Phone | + [...] + + | 06/28/ | Telephone | [facility] | Ashley Chávez | Other (Patient | | 2018 | | CARDIOLOGY [place], Sole Skiver | called to cancel her | | | | [address] | | appointment) | | | | [place] | | | | | | [address] | | | | | | [phone] | | | +--------+ + + + [...] Miscellaneous Notes Telephone Encounter - Ashley Chávez, Sole Skiver - 06/28/2019 2:12 PM PDTPatien t said that she already got the result [...] | 04/24/ | Office | Cardiology | [facility] | | | 2019 | Visit | | CAROLINE Mendez [address] | | | | | | [address] | | | | | | [place] [address] | | | | | | [phone] | | | | | | | | +--------+---------+ + + + documented as of this encounter Visit Diagnoses Not on filedocumented in this encounter"
--- OUTSIDE RECORDS SUMMARY | ~2020-04-20 | XMS | Encounter Summary ---
Demographics + + + | Address | [address] | | | [place] [address] | + + + | Home Phone | | + + + | Preferred Language | Unknown | + + + | Marital Status | | + + + | Tenriism Affiliation | 1013 | + + + [...] [place] | | | | | [address] | | + + + + + Care Team Providers + +------+ + | Care Stud Beef Cattle Farmer Name | Role | Phone | + [...] | | | spondylolist | | [address] | | | | | hesis | | [place], | | | | | Spinal | | [place] [address] | | | | | stenosis, | | Phone: | | | | | lumbar | | [phone] | | | | | region, | | Fax: | | | | | without | | [phone] | | | | | neurogenic | [...] | | | | | | | [place] | | | | | | [...] | | | | | | [place] | | | | | | | [...] | | | | | | [place] | | | | | | | [...] + + | 07/02/ | Hospital | [facility] | Frandy Teresa, | Spinal stenosis, | | 2013 | Encounter | MED CTR XRAY [address] | DO [address] | lumbar region, | | | | [place] | [address] [place], [place] | without neurogenic | | | | [place] [address] | [address] | claudication | | | | [phone] | | (Primary Dx) | +--------+ + [...] + + + +---------+ + + | [place]-3 Fatty | Take 1,000 mg by | [...] | | | | | [place] [address] | | | | | | [phone] | | | | | | | | +--------+---------+ + + + documented as of this encounter Procedures + +--------+ + + + | Procedure Name | Priori | Date/Time | Associated Diagnosis | Comments | | | ty | | | | + +--------+ + + + | NATHAN TONEY STATS NO | Routin | 07/02/2014 | Spinal stenosis, | Results for this | | CHARGE | e | 2:11 PM | lumbar region, | procedure are in the | | | | PDT | without neurogenic | results section. | | | | | claudication | | + +--------+ + + + documented in this encounter Results NATHAN Zuluaga Stats No Charge (07/02/2014 2:11 PM PDT) + [...]
--- OUTSIDE RECORDS SUMMARY | ~2020-04-20 | XMS | Encounter Summary ---
Demographics + + + | Address | [address] | | | [place] [address] | + + + | Home Phone [...] [place] | | | | | [address] | | + + + + + Care Team Providers + +------+ + | Care Barrel Roller Name | Role | Phone | + +------+ + | Natalee Andersen NP | PCP | | + +------+ + Encounter Details +--------+---------+ + + + | Date | Type | Department | Care Team | Description | +--------+---------+ + + + | 06/25/ | Surgery | [facility] | Frandy Teresa, | Canceled | | 2013 | | MED CTR OR INTRA OP | DO [address] | PROCEDURE NOT | | | | [address] | [address] [place], [place] | PERFORMED | | | | [place], [place] | [address] | | | | | [address] | | | | | | [phone] | | | +--------+---------+ + + + [...] + + + | Blood Pressure | 164/56 | 06/25/2014 1:00 PM | | | | | PDT | | + + + + + | Pulse | 70 | 06/25/2014 1:00 PM | | | | | PDT | | + + + + + | Temperature | 36.8 C (98.2 F) | 06/25/2014 1:00 PM | | | | | PDT | | + + + + + | Respiratory Rate | 18 | 06/25/2014 1:00 PM | | | | | PDT | | + + + + + | Oxygen Saturation | 94% | 06/25/2014 1:00 PM | | | | | PDT | | + + + + + | Inhaled Oxygen | - | - | | | Concentration | | | | + + + + + | Weight | 134.9 kg (297 lb 6.4 | 06/25/2014 1:00 PM | | | | oz) | PDT | | + + + + + | Height | 170.2 cm (5' 7") | 06/25/2014 1:00 PM | | | | | PDT | | + + + + + | Body Mass Index | 46.58 | 06/25/2014 1:00 PM | | | | | PDT | | + + + + + documented in this encounter Medications at Time [...] + + + +---------+ + + | [place]-3 Fatty | Take 1,000 mg by | [...] encounter Progress Notes Frandy Teresa DO - 06/25/2014 3:53 PM PDTI was made aware of the marked hyponatremia to day relative to her last sodium of 133 from 05/27/14. In consultation with the anesthesiologis ts (Drs. Morrow and Jorge), I will cancel the procedure in favor of repeat medical clearanc e by her primary care doctor. I explained this to the patient. All her questions were answered. She expressed understandi ng and stated that she has no new symptoms. She denies nausea, vomiting, altered mental stat us, staggering, instability, etc. She will call the office to reschedule once cleared again. documented in this en counter H&P Notes ONBRUCE ABREU [facility] - 06/21/2014 12:00 AM PDT 14 1:21 PM PDTdocumented in this encounter Procedure Notes Terence Madison MD - 06/26/2014 8:04 AM PDTAssociated Order(s): ECG 12 LEADProcedure(s): E CG 12 LEAD Adult ECG Report Name: Cindy Arndt Age: 58 y.o. Gender: female 06/25/14 at 13:35 Narrative Interpretation: Sinus rhythm. Consider LVH. Normal axis. Normal intervals. E lectronically signed by Terence Madison MD at 06/26/2014 8:05 AM PDTONBRUCE ABREU [facility] - 06/26 12:00 AM PDT NBRUCE ZAMORA N [facility] - 06/26/2014 12:00 AM PDT NBASE SCAN [facility] - 06/12/2014 12:00 AM PDTElectronically signed by Mariah Schulte at 06/12 7:30 AM [facility] - 06/11/2014 12:00 AM PDT documented in this encounter Miscellaneous Notes Miscellaneous - ONBASE SCAN [facility] - 06/26/2014 12:00 AM PDT lan of Care - Brannon Smith Chaplain - 06/25/2014 2:31 PM PDTProblem: General Plan of Care (Adult, Obstetrics) Goal: Care Plan Shift Summary & Review . Spiritual Care Cindy Arndt is a 58 y.o. female who is admitted for Acquired spondylolisthesis [738 .4] (Lumbago) Spinal stenosis, lumbar region, without neurogenic claudication [724.02] (Thoracic or lumbo sacral neuritis or radiculitis, unspecified) Thoracic or lumbosacral neuritis or radiculitis, unspecified [724.4] (Acquired spondylolist hesis ) Lumbago [724.2] (Spinal stenosis, lumbar region, without neurogenic claudication ). [employer] visit is in response to an electronic spiritual care consult request. Patient wa s resting comfortably in bed; she was attended by her mom and dad - both sate nearby and see med very attentive and supportive. Cindy is Zoroastrian, attends [employer], and is strong in her rangel. She is excited about taking care of her back problem and fe els very secure in Dr. Teresa's care. She welcomed prayer, and expressed appreciation for th visit. Follow up with regular visits, emotional and spiritual support. iscellaneo us - ONBASE SCAN [facility] - 06/25/2014 12:00 AM PDTElectronically signed by Mariah Schulte at 01/2014 12:04 PM PDTdocumented in this encounter Plan of Treatment +--------+---------+ + + + | Date | Type | Specialty | Care Team | Description | +--------+---------+ + + + | 04/24/ | Office | Cardiology | oDra De La Torre | | | 2020 | Visit | | CAROLINE Mendez [address] | | | | | | [address] | | | | | | [place] [address] | | | | | | [phone] | | | | | | | | +--------+---------+ + + + documented as of this encounter Procedures + +--------+ + + + | Procedure Name | Priori | Date/Time | Associated Diagnosis | Comments | | | ty | | | | + +--------+ + + + | ECG 12 LEAD | STAT | 06/26/2014 | | Results for this | | | | 8:05 AM | | procedure are in the | | | | PDT | | results section. | + +--------+ + + + | PTT | Routin | 06/25/2014 | | Results for this | | | e | 1:58 PM | | procedure are in the | | | | PDT | | results section. | + +--------+ + + + | PROTIME INR | Routin | 06/25/2014 | | Results for this | | | e | 1:58 PM | | procedure are in the | | | | PDT | | results section. | + +--------+ + + + | TYPE AND SCREEN | Routin | 06/25/2014 | | Results for this | | | e | 1:58 PM | | procedure are in the | | | | PDT | | results section. | + +--------+ + + + | BASIC METABOLIC | STAT | 06/25/2014 | | Results for this | | PANEL | | 1:58 PM | | procedure are in the | | | | PDT | | results section. | + +--------+ + + + | POC GLUCOSE | Routin | 06/25/2014 | | Results for this | | | e | 1:48 PM | | procedure are in the | | | | PDT | | results section. | + +--------+ + + + documented in this encounter Results ECG 12 lead (06/26/2014 8:05 AM PDT) + + + | Narrative | Performed At | + + + | Terence B Madison, MD 06/26/2014 8:05 Adult ECG Report | | | Name: Cindy Arndt Age: 58 y.o. Gender: female 06/25/14 | | | at 13:35 Narrative Interpretation: Sinus rhythm. Consider LVH. | | | Normal axis. Normal intervals. | | + + + + + | Procedure Note | + + | Terence Madison MD - 06/26/2014 8:04 AM PDT Adult ECG Report Name: Cindy Graham | | Yris Age: 58 y.o. Gender: female06/25/14 at 13:35 Narrative Interpretation: Sinus | | rhythm. Consider LVH. Normal axis. Normal intervals. | | Age: 58 y.o. | | Gender: female | | | |06/25/14 at 13:35 | | Narrative Interpretation: Sinus rhythm. Consider LVH. Normal axis. Normal intervals. | + + Basic Metabolic Panel (06/25/2014 1:58 PM PDT) + + + + + + | Component | Value | Ref Range | Performed | Pathologist | | | | | At | Signature | + + + + + + | Na | 126 (L) | 136 - 149 | [facility] | | | | | mmol/L | [facility] | | | | | | [facility] | | | | | | [facility] - | | | | | | LABORATORY | | + + + + + + | K | 3.7 | 3.5 - 5.1 | [facility] | | | | | mmol/L | [facility] | | | | | | [facility] | | | | | | C[facility] - | | | | | | LABORATORY | | + + + + + + | Cl | 91 (L) | 98 - 109 mmol/L | [facility] | | | | | | [facility] | | | | | | [facility] | | | | | | [facility] - | | | | | | LABORATORY | | + + + + + + | CO2 | 27 | 24 - 31 mmol/L | [facility] | | | | | | [facility] | | | | | | [facility] | | | | | | [facility] - | | | | | | LABORATORY | | + + + + + + | Anion Gap | 8 | 3 - 16 mmol/L | [facility] | | | | | | [facility] | | | | | | [facility] | | | | | | [facility] - | | | | | | LABORATORY | | + + + + + + | Glucose | 100 | 70 - 109 mg/dL | [facility] | | | | | | [facility] | | | | | | [facility] | | | | | | C[facility] - | | | | | | LABORATORY | | + + + + + + | BUN | 12 | 7 - 18 mg/dL | [facility] | | | | | | [facility] | | | | | | [facility] | | | | | | CENTER - | | | | | | LABORATORY | | + + + + + + | Creatinine | 0.60 | 0.60 - 1.30 | [facility] | | | | | mg/dL | [facility] | | | | | | [facility] | | | | | | C[facility] - | | | | | | LABORATORY | | + + + + + + | eGFR if not | >60Comment: GLOMERULAR | >=60 | [facility] | | | | FILTRATION | mL/min/1.73m2 | [facility] | | | NIUEAN | RATE,ESTIMATED | | MEDICAL | | | | mL/min/1.88c4Pyyk than | | CENTER - | | [...] + + + + | Calcium | 9.2 | 8.3 - 10.5 | [facility] | | | | | mg/dL | [facility] | | | | | | MEDICAL | | | | | | CENTER - | | | | | | LABORATORY | | + + + + + + | BUN/Creatin | 20.0 | | [facility] | | | ine Ratio | | | [facility] | | [...] + | [facility] | [address] | [place] | [phone] | | [facility] | | [address] | | | - LABORATORY | | | | + + + + + | [facility] | [address] | [place], [place] | | | [facility] | | [address], [facility] | | | - LABORATORY | | | | + + + + + PTT (06/25/2014 1:58 PM PDT) + +-------+ + + + | Component | Value | Ref Range | Performed | Pathologist | | | | | At | Signature | + +-------+ + + + | aPTT | 28 | 22 - 36 seconds | [facility] | | | | | | [facility] [...] [address] | [place] | [phone] | | [facility] | | [address] | | | - LABORATORY | | | | + + + + + | [facility] | [address] | [place] | | | [facility] | | [address] | | | - LABORATORY | | | | + + + + + Protime INR (06/25/2014 1:58 PM PDT) + +-------+ + + + | Component | Value | Ref Range | Performed | Pathologist | | | | | At | Signature | + +-------+ + + + | Prothrombin | 12.7 | 11.3 - 13.9 | [facility] | | | Time | | seconds | [facility] | | | | | | [facility] | | | | | | CENTER - | | | | | | LABORATORY | | + +-------+ + + + | INR | 0.96 | 0.90 - 1.10 | [facility] | | | | | [...] + | [facility] | [address] | [place], [place] | [phone] | | [facility] | | [address] | | | - LABORATORY | | | | + + + + + | [facility] | [address] | [place], [place] | | | [facility] | | [facility], [facility] | | | - LABORATORY | | | | + + + + + Type and Screen (06/25/2014 1:58 PM PDT) + + + + + + | Component | Value | Ref Range | Performed | Pathologist | | | | | At | Signature | + + + + + + | ABO | A | | [facility] | | | | | | [facility] | | | | | | [facility] | | | | | | CENTER - | | | | | | BLOOD BANK | | + + + + + + | Rh Type | Negative | | [facility] | | | | | | [facility] | | | | | | [facility] | | | | | | CENTER - | | | | | | BLOOD BANK | | + + + + + + | Antibody | Negative | | [facility] | | | Screen | | | [facility] | | [...] + + | [facility] | [address] | [place] | | | [facility] | | [address] | | | - BLOOD BANK | | | | + + + + + POC Glucose (06/25/2014 1:48 PM PDT) + +-------+ + + + | Component | Value | Ref Range | Performed | Pathologist | | | | | At | Signature | + +-------+ + + + | Glucose, | 113 | 79 - 150 mg/dL | [facility] [address] | [place] | [phone] | | [facility] | | [address] | | | - LABORATORY | | | | + + + + + | [facility] | [address] | [place] | | | [facility] | | [address], [facility] | | | - LABORATORY | [...] documented in this encounter Administered Medications + +---------+ +--------+------+ + | Medication Order | MAR | Action | Dose | Rate | Site | | | Action | Date | | | | + +---------+ +--------+------+ + | scopolamine (TRANSDERM-SCOP) | Patch | 06/25/20 | 1.5 mg | | Ear-Behi | | patch 1.5 mg 1.5 mg (1 patch), | Applied | 14 1:55 | | | nd Right | | Transdermal, ONCE PRN, May apply | | PM PDT | | | | | behind ear for patients with | | | | | | | history of post-operative nausea | | | | | | | and vomiting., Starting Tue | | | | | | | 06/25/14 at 1315, For 1 dose, Leave | | | | | | | up to patient. Should be used | | | | | | | for previous cases of intractable | | | | | | | postoperative nausea/vomiting. | | | | | | | If the patient has previously and | | | | | | | recently been well-controlled | | | | | | | postoperatively without | | | | | | | scopolamine, the patient may | | | | | | | decline., Pre-op | | | | | | + +---------+ +--------+------+ + +---+---+ | | | +---+---+ + +---------+ +--------+-------+---+ | sodium chloride 0.9% (NS) | New Bag | 06/25/20 | 1,000 | 100 | | | infusion at 100 mL/hr, | | 14 1:54 | mLs | mL/hr | | | Intravenous, CONTINUOUS, Starting | | PM PDT | | | | | 06/25/14 at 1345, Pre-op | | | | | | + +---------+ +--------+-------+---+ +---+---+ | | | +---+---+ documented in this encounter
--- OUTSIDE RECORDS SUMMARY | ~2020-04-20 | XMS | Encounter Summary ---
Demographics + + + | Address | [address] | | | [place] [address] | + + + | Home Phone [...] [place] | | | | | [address] | | + + + + + Care Team Providers + +------+ + | Care Ramp Agent Name | Role | Phone | [...] | +--------+ + + + + | 02/26/ | Emergency | [facility] | [place], | CVA (cerebral | | 2015 | | MED CTR EMER[facility]Y | Davey Simons MD [address] | vascular accident) | | | | CENTER [address] | [facility] | ([facility]) (Primary Dx) | | | | [place], [place] | [place] [address] | | | | | [address] | [phone] | | | | | [phone] | | | +--------+ + + + [...] + + + +---------+ + + | Sullivan-3 Fatty | Take 1,000 mg by | [...] might be differe nt from the original. [facility] Emergency Department Encounter Note [address] [place] [address] PCP:Natalee Andersen [phone] CHIEF COMPLAINT: Chief Complaint Patient presents with Facial Droop ED Room: ED07/ED07 HPI Cindy Arndt is a 59 y.o. female who presents to the Emergency Department accompanied by a friend from [place] for evaluation. The patient recently had symptoms that were diagno sed as stroke or TIA. The symptoms were of a weakness and numbness in her right arm and leg . She was hospitalized for 4 days in [place] for this. She was discharged and subsequent ly has had 2 or 3 emergency department visits in [place] for symptoms diagnosed as TIAs. These have been recurrent and worsening right arm and leg weakness and then today with some right facial drooping and drooling. She is on Aggrenox. She had a full workup in [place] including brain CT, brain MRI, and carotid [...] or Severe Contraindications. Consult references such as BAC ON TRAC for furthe r information. Magnesium 250 MG [...] or Severe Contraindications. Consult references such as BAC ON TRAC for further information. Multiple Vitamins-Minerals (CENTRUM SILVER PO) Take 1 tablet by mouth Daily.Historical Med OLANZapine zydis (ZYPREXA ZYDIS) 15 MG disintegrating tablet Take 15 mg by mouth nightly. Sullivan-3 Fatty Acids (FISH OIL CONCENTRATE) 1000 MG [...] review all of her imaging studies from [facility] ED COURSE & MEDICAL DECISION MAKING Pertinent Labs & Imaging studies were reviewed along with EMS notes and correction record s if applicable. (See chart for details) Medications and Allergy list reviewed. Nurses note and old records were reviewed The patient was seen and examined, I was finally able to get her records from [facility] which showed a normal MRI and less [...] accident) (HCC) Follow-up Information Follow up with [facility]. Specialty: Emergency Medicine Contact information: [address] [facility] [address] Follow up with [facility]. Specialty: Emergency Medicine Contact information: [address] [facility] [address] Follow up with Natalee Andersen NP. Specialty: Family Nurse Practitioner Contact information: [address] [place] [address] Schedule an appointment as soon as possible for a visit with Baudilio Newman MD. Specialty: Neurology Contact information: [address] [facility] [id number] Discharge Medication List as of 02/26/2015 15:21 Davey Varela MD 02/26/15 1732 do cumented in this encounter Miscellaneous Notes ED Triage Notes - Yesenia Monroy RN - 02/26/2015 1:11 PM PDTC/O right sided facial mahendra op and numbness to right arm and leg onset yesterday at approximately 1800. Pt was seen in [facility] by her primary care physician this morning for the same symptoms and states "they d idn't do anything for me, they didn't even examine me." History of stroke affecting right si de 02/01/15, states she has fully recovered from this. Arrives with notable right sided faci al droop, no unilateral deficits, able to ambulate without difficulty, speech clear and appr opriate. documented ermias galarza encounter Plan of Treatment +--------+---------+ + + + | Date | Type | Specialty | Care Team | Description | +--------+---------+ + + + | 04/24/ | Office | Cardiology | Dora De La Torre | | | 2020 | Visit | | CAROLINE Mendez [address] | | | | | | [address] | | | | | | [place] [address] | | | | | | [phone] | | | | | | | [...] | | | | | | [facility] | | | | | | MEDICAL | | | | | | CENTER - | | | | | | LABORATORY | | + + + + + + | Creatinine | 0.64 | 0.60 - 1.30 | [facility] | | | | | mg/dL | [facility] | | | | | | MEDICAL | | | | | | CENTER - | | | | | | LABORATORY | | + + + + + + | eGFR if not | >60Comment: GLOMERULAR | >=60 | [facility] | | | | FILTRATION | mL/min/1.73m2 | [facility] | | | LUXEMBOURGER | RATE,ESTIMATED | | MEDICAL | | | | mL/min/1.54o0Nnga than | | CENTER - | | [...] | | | | mg/dL | [facility] | | | | | | MEDICAL | | | | | | CENTER - | | | | | | LABORATORY | | + + + + + + | Albumin | 3.7 | 3.2 - 5.0 g/dL | [facility] [...] | | Total | | | [facility] | | | | | | MEDICAL | | | | | | CENTER - | | | | | | LABORATORY | | + + + + + + | Total | 5.8 (L) | 6.0 - 7.8 g/dL | [facility] | | | Protein | | | [facility] | | [...] | | Phosphatase | | | [facility] | | [...] | bulin Ratio | | | [facility] | | | | | | MEDICAL | | | | | | CENTER - | | | | | | LABORATORY | | + + + + + + | BUN/Creatin | 20.3 | | [facility] | | | ine Ratio | | | [facility] | | [...] + | [facility] | [address] | [place] | [phone] | | [facility] | | [address] | | | - LABORATORY | | | | + + + + + CBC with Differential (02/26/2015 1:54 PM PDT) + + + + + + | Component | Value | Ref Range | Performed | Pathologist | | | | | At | Signature | + + + + + + | WBC | 7.7 | 4.0 - 11.0 K/uL | [facility] | | | | | | [facility] | | | | | | MEDICAL | | | | | | CENTER - | | | | | | LABORATORY | | + + + + + + | RBC | 4.21 | 3.70 - 5.20 | [facility] | | | | | M/uL | [facility] | | | | | | MEDICAL | | | | | | CENTER - | | | | | | LABORATORY | | + + + + + + | Hemoglobin | 11.0 (L) | 11.5 - 16.0 | [facility] | | | | | g/dL | [facility] | | | | [...] | | | | g/dL | [facility] | | | | [...] | | Count | | | [facility] | | [...] | | Neutrophils | | | [facility] | | | | | | MEDICAL | | | | | | CENTER - | | | | | | LABORATORY | | + + + + + + | % | 31.2 | 20.0 - 45.0 % | [facility] | | | Lymphocytes | | | [facility] | | [...] | | Eosinophils | | | [facility] | | [...] | Neutrophils | | K/uL | [facility] | | | | | | MEDICAL | | | | | | CENTER - | | | | | | LABORATORY | | + + + + + + | Absolute | 2.40 | 0.60 - 3.20 | [facility] | | | Lymphocytes | | K/uL | [facility] | | | | | | MEDICAL | | | | | | CENTER - | | | | | | LABORATORY | | + + + + + + | Absolute | 0.60 | 0.00 - 1.00 | [facility] | | | Monocytes | | K/uL | [facility] | | | | | | MEDICAL | | | | | | CENTER - | | | | | | LABORATORY | | + + + + + + | Absolute | 0.10 | 0.00 - 0.40 | [facility] | | | Eosinophils | | K/uL | [facility] | | | | | | MEDICAL | | | | | | CENTER - | | | | | | LABORATORY | | + + + + + + | Absolute | 0.00 | 0.00 - 0.10 | [facility] | | | Basophils | | K/uL | [facility] | | | | [...] [address] | [place] | [phone] | | [facility] | | [address] | | | - LABORATORY | | [...] | ---- | | | 02/26/2015 13:10 [facility] | | | Emergency -numbness/facial droop 02/26/2015 08:15 [facility] | | | [facility] 02/19/2015 | | | 10:15 [facility] | | | -Diabetes mellitus [...] as uncontrolled 02/17/2015 | | | 08:22 [facility] | | | -Long-term (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 [...] and uterus 02/14/2015 | | | 09:56 [facility] | | | -Disturbance of skin [...] postprocedural status 02/06/2015 10:46 | | | [facility] | | | -Generalized pain [...] residual deficits | | | 02/01/2015 21:38 [facility] | | | Emergency 01/22/2015 14:00 [facility] | | | Urgent Care -Myalgia and [...] intervertebral disc | | | 01/16/2015 12:15 [facility] | | | Urgent Care -Unspecified acquired [...] other | | | medications 01/07/2015 11:45 [facility] | | | Urgent Care -Unspecified acquired [...] acquired hypothyroidism 12/30/2014 | | | 17:54 [facility] | | | -Obstructive sleep apnea [...] essential hypertension | | | 12/30/2014 14:30 [facility] | | | Urgent Care -Cramp of [...] | | -Cramp of limb 11/29/2014 16:15 [facility] | | | Urgent Care -Esophageal reflux [...] ------ | | | --------- [address] | | | [facility] [address] | | | [facility] 7 0 Total | | | Note: Visits indicate total known visits. Medicaid [place] Dx are the | | | number of primary diagnoses on the [facility]'s non-emergent dx list. | | | | | | --- [facility] has no Care Guidelines for this patient. | | + + + + +---------+ + + | Performing | Address | City/State/Zipcode | Phone Number | | Organization | | | | + +---------+ + + | [place] | | | | + +---------+ + + documented in this encounter Visit Diagnoses + + | Diagnosis | + + | CVA (cerebral vascular accident) (HCC) - Primary Unspecified cerebral artery | | occlusion with cerebral infarction | + + documented in this encounter
--- OUTSIDE RECORDS SUMMARY | ~2020-04-20 | XMS | Encounter Summary ---
Demographics + + + | Address | [address] | | | [place] [address] | + + + | Home Phone [...] [place], [place] | | | | | [address] | | + + + + + Care Team Providers + +------+ + | Care Security Services Manager Name | Role | Phone | + +------+ + PCP | Unavailable | + +------+ + Encounter Details +--------+ + + + + | Date | Type | Department | Care Team | Description | +--------+ + + + + | 06/07/ | Hospital | [facility] | | | | 1991 - | Encounter | MED CTR GENERIC OP | | | | | | CONV DEPT [address] | | | | 10/07/ | | [place], | | | | 1991 | | [place] [address] | | | | | | [phone] | | | +--------+ + + + [...] | | | | | [place] [address] | | | | | | [phone] | | | | | | | | +--------+---------+ + + + documented as of this encounter Visit Diagnoses Not on filedocumented in this encounter"
--- OUTSIDE RECORDS SUMMARY | ~2020-04-20 | XMS | Clinical Summary ---
Demographics + + + | Address | [address] | | | [place] [address] | + + + | Home Phone | | + + + | Preferred Language | Unknown | + + + | Marital Status | Single | + + + | Scientologist Affiliation | Unknown | + + + [...] [place] | | | | | [address] | | + + + + + Care Team Providers + +------+ + | Care Halal Butcher Name | Role | Phone | + +------+ + PCP | Unavailable | + +------+ + Source Comments EDWARD is fully live on both [facility] Ambulatory and [facility] InPatient.[facility] Allergies Not on File Medications [...] | + + Last Filed Vital Signs Not on file Plan of Treatment + + + + + | Health Maintenance | Due Date | Last Done | Comments | + + + + + | Influenza (Flu) | | | | | vaccination (#1) | 9 | | | + + + + + | Pneumococcal | Aged Out | | No longer eligible | | vaccination | | | based on patient's | | | | | age to complete this | | | | | topic | + + + + + Results [...] | [employer] | xxxxxxxxxx | 02/22/20 | [phone] | [address] | Medica | | | RE A & | | 15-Pre | 1 | [phone] | re | | | B | | sent | | [place] | | | | | | | | [address] | | + +--------+ +--------+ + +--------+ + +--------+ +--------+ + + | Guarantor Name | Accoun | Relation to | Date | Phone | Billing Address | | | t Type | Patient | of | | | | | | | | | | + +--------+ +--------+ + + | CINDY ARNDT | Person | Self | [birth year] | [address] | | al/Fam | | 1955 | [phone] | [address] [place] | | | [place]onte | | | 5 (Home) | [address] | + +--------+ +--------+ + +"
--- OUTSIDE RECORDS SUMMARY | ~2020-04-20 | XMS | Encounter Summary ---
Demographics + + + | Address | [address] | | | [place] [address] | + + + | Home Phone [...] [place] | | | | | [address] | | + + + + + Care Team Providers + +------+ + | Care Commercial Loan Manager Name | Role | Phone | + +------+ + | Adriano Patrick MD | PCP | | + +------+ + Reason for Visit +--------+--------+ + | Reason | Onset | Comments | | | Date | | +--------+--------+ + | Other | 09/19/ | Patient calling to be seen sooner. | | | 2018 | | +--------+--------+ + Encounter Details +--------+ + + + + | Date | Type | Department | Care Team | Description | +--------+ + + + + | 09/19/ | Telephone | [facility] | Ashley Chávez | Other (Patient | | 2018 | | CARDIOLOGY GEN[place]IS Abad, Sql Ssrs Developer | calling to be seen | | | | [address] | | mirella. ) | | | | [place] | | | | | | [address] | | | | | | [phone] | | | +--------+ + + + [...] Miscellaneous Notes Telephone Encounter - Ashley Chávez Sql Ssrs Developer - 09/19/2019 10:41 AM PSTCall m cierra to patient to advise of Dr. Peterson's notes. Patient stated understanding. Patient asked why she couldn't be seen sooner, and I reminded her that we offered her a monae ner appointment that she turned down. Patient said thank you and hung up. CLAYTONW:MANGO. el ephone Encounter - Ashley Chávez Sql Ssrs Developer - 09/19/2019 10:40 AM PST Dora De La Torre, CAROLINE Peterson DO; Ashley Chávez Sql Ssrs Developer So just an FYI: we offered her appointment today at 3 pm but she turned it down, and said she would keep scheduled appt. el ephone Encounter - Ashley Chávez Sql Ssrs Developer - 09/19/2019 10:38 AM PST----- Mess age from Desiree Peterson DO sent at 09/17/2019 8:06 PM PST ----- Regarding: RE: Patient is having symptoms still... Her cardiac workup has all been very reassuring. I think that her elevated pulse is probabl y due to anxiety. I do not recommend starting a medication for her heart rates. ----- Message ----- From: Leidy Covarrubias Sent: 09/17/2019 2:02 PM PST To: Desiree Peterson DO Subject: Patient is having symptoms still... This patient was in the middle of an anxiety attack, and she was very frustrated with her s ymptoms. I was able to calm her down a little bit, but here's her message. Patient says she is exhausted, cannot do her laundry, gets really short of breath, and swea ts a lot. She says that she needs your advice. Patient's pulse is 120, and she refuses to go to the [facility], because the last time she went, around the first of JUL, they told her they couldn't do a nything for her, and she needs to be seen by a wind up operator. I have asked Lizeth to call her if Dora Mendez can see her today at 3... but if not patient did specifically want to try a me dication. Patient is wondering if she can start Lanoxin, and is wondering if this would be a good kelby a for what is going on with her from a cardiac stand point? I can call her back with any new recommendations you might have in regards to starting a n ew medication to help her pulse? Please advise. Thank you! [facility] Plan of Treatment +--------+---------+ + + + | Date | Type | Specialty | Care Team | Description | +--------+---------+ + + + | 04/24/ | Office | Cardiology | Dora De La Torre | | | 2019 | Visit | | CAROLINE Mendez [address] | | | | | | [address] | | | | | | [place] [address] | | | | | | [phone] | | | | | | | | +--------+---------+ + + + documented as of this encounter Visit Diagnoses Not on filedocumented in this encounter"
--- OUTSIDE RECORDS SUMMARY | ~2020-04-20 | XMS | Encounter Summary ---
Demographics + + + | Address | [address] | | | [place] [address] | + + + | Home Phone [...] + + | Author | [facility] | | | and [place] | + + + | Organization | [facility] | | | and [place] | + + + | Address | Unknown | + + + | Phone | Unavailable | + + + Support + + + + + | Name | Relationship | Address | Phone | + + + + + | Araceli Sibley | ECON | [place] | | | | | [address] | | + + + + + Care Team Providers + +------+ + | Care Glass Tinter Name | Role | Phone | + +------+ + | Natalee Andersen NP | PCP | | + +------+ + Encounter Details +--------+---------+ + + + | Date | Type | Department | Care Team | Description | +--------+---------+ + + + | 06/25/ | Surgery | [facility] | Frandy Teresa, | Canceled | | 2013 | | MED CTR OR INTRA OP | DO [address] | PROCEDURE NOT | | | | [address] | [address] [place], [place] | PERFORMED | | | | [place], [place] | [address] | | | | | [address] | | | | | | [phone] | | | +--------+---------+ + + + [...] + + + +---------+ + + | Kearsarge-3 Fatty | Take 1,000 mg by | [...] with the anesthesiologis ts (Drs. Morrow and Jogre), I will cancel the procedure in favor [...] this en counter H&P Notes ONBRUCE ABREU [facility] - 06/21/2014 12:00 AM PDT 14 1:21 [...] MD at 06/26/2014 8:05 AM PDTONBRUCE ABREU [facility] - 06/26 12:00 AM PDT NBRUCE ZAMORA N [facility] - 06/26/2014 12:00 AM PDT NBASE [facility]AN [facility] - 06/12/2014 12:00 AM PDTElectronically signed by Mariah Schulte at 06/12 7:30 AM [facility] - 06/11/2014 12:00 AM PDT documented in this encounter Miscellaneous Notes Miscellaneous - [facility]AN [facility] - 06/26/2014 12:00 AM PDT lan of [...] stenosis, lumbar region, without neurogenic claudication ). Deposit Refund Clerk visit is in response to an electronic spiritual care consult request. Patient wa s resting comfortably in bed; she was attended by her mom and dad - both sate nearby and see med very attentive and supportive. Cindy is Religion, attends [employer], and is strong in her rangel. She is excited about taking care of her back problem and fe els very secure in Dr. Teresa's care. She welcomed prayer, and expressed appreciation for th visit. Follow up with regular visits, emotional and spiritual support. iscellaneo us - ONBASE SCAN [facility] - 06/25/2014 12:00 AM PDTElectronically signed by [...] [address] | | | | | | [place] [address] | | | | | | [phone] | | | | | | | [...] | 0.60 | 0.60 - 1.30 | [facility] | | | | | mg/dL | [facility] | | | | | | MEDICAL | | | | | | CENTER - | | | | | | LABORATORY | | + + + + + + | eGFR if not | >60Comment: GLOMERULAR | >=60 | [facility] | | | | FILTRATION | mL/min/1.73m2 | [facility] | | | SOMALI | RATE,ESTIMATED | | MEDICAL | | | | mL/min/1.79c3Cdzj than | | CENTER - | | [...] + | [facility] | [address] | [place] | [phone] | | [facility] | | [address] | | | - LABORATORY | | | | + + + + + | [facility] | [address] | [place], [place] | | | [facility] | | [address], [facility] | | | - [...] [address] | [place] | [phone] | | [facility] | | [address] | | | - LABORATORY | | | | + + + + + | [facility] | [address] | [place] | | | [facility] | | [address] | | | - LABORATORY [...] + | [facility] | [address] | [place], [place] | [phone] | | [facility] | | [address] | | | - LABORATORY | | | | + + + + + | [facility] | [address] | [place], [place] | | | [facility] | | Critical access hospital, [facility] | | | - [...] ST. | [address] | [place] | | | [facility] | | [address] | | | - BLOOD BANK | [...] [address] | [place] | [phone] | | [facility] | | [address] | | | - LABORATORY | | | | + + + + + | [address] | [address] | [place] | | | [facility] | | [address], [facility] | | | - [...]
--- OUTSIDE RECORDS SUMMARY | ~2020-04-20 | XMS | Encounter Summary ---
Demographics + + + | Address | [address] | | | [place] [address] | + + + | Home Phone [...] [place], [place] | | | | | [address] | | + + + + + Care Team Providers + +------+ + | Care Detail Manager Name | Role | Phone | + +------+ + PCP | Unavailable | + +------+ + Encounter Details +--------+ + + + + | Date | Type | Department | Care Team | Description | +--------+ + + + + | 01/06/ | Hospital | [facility] | | | | 1992 | Encounter | MED CTR LABORATORY | | | | | | [address] | | | | | | [place] | | | | | | [address] | | | | | | [phone] | | | +--------+ + + + [...] [address] | | | | | | [place] [address] | | | | | | [phone] | | | | | | | | +--------+---------+ + + + documented as of this encounter Visit Diagnoses Not on filedocumented in this encounter"
--- OUTSIDE RECORDS SUMMARY | ~2020-04-20 | XMS | Encounter Summary ---
Demographics + + + | Address | [address] | | | [place] [address] | + + + | Home Phone [...] [place] | | | | | [address] | | + + + + + Care Team Providers + +------+ + | Care Software Licensing Executive Name | Role | Phone | [...] + + | 08/15/ | Documentati | [facility] | Katharine Moncada, | Other (urgent | | 2019 | on | CARDIOLOGY [place] | Technologist | report) | | | | [address] | | | | | | [place] | | | | | | [address] | | | | | | [phone] | | | +--------+ + + + [...] | | | | | | [address] | | | | | | [place] [address] | | | | | | [phone] | | | | | | | | +--------+---------+ + + + documented as of this encounter Visit Diagnoses Not on filedocumented in this encounter"
--- OUTSIDE RECORDS SUMMARY | ~2020-04-20 | XMS | Encounter Summary ---
Demographics + + + | Address | [address] | | | [place] [address] | + + + | Home Phone [...] [place] | | | | | [address] | | + + + + + Care Team Providers + +------+ + | Care Office Support Name | Role | Phone | + [...] + + | 08/09/ | Clinical | [facility] | Desiree Peterson DO | Syncope, unspecified | | 2019 | Support | CARDIOLOGY [place] | [address] | syncope type | | | | [address] | [place], [place] | | | | | [place] [address] | [address] | | | | | [place] | | | | | | [address] | Dora De La Torre | | | | | [phone] | CAROLINE Mendez [address] | | | | | | [address] | | | | | | [place] [address] | | | | | | [phone] | | | | | | | [...] PDT4 weeks cardiac event monitor placed on adrinaa ent. EOB/Billing information discussed. Instructions given and [...] [address] | | | | | | [place] [address] | | | | | | [phone] | | | | | | | | +--------+---------+ + + + documented as of this encounter Visit Diagnoses + + | Diagnosis | + + | Syncope, unspecified syncope type | + + documented in this encounter"
--- OUTSIDE RECORDS SUMMARY | ~2020-04-20 | XMS | Encounter Summary ---
Demographics + + + | Address | [address] | | | [place] [address] | + + + | Home Phone [...] [place] | | | | | [address] | | + + + + + Care Team Providers + +------+ + | Care Reporting Manager Name | Role | Phone | + +------+ + | Natalee Andersen NP | PCP | | + +------+ + Reason for Visit +--------+--------+ + | Reason | Onset | Comments | | | Date | | +--------+--------+ + | Other | 05/13/ | | | | 2013 | | +--------+--------+ + Encounter Details +--------+ + + + + | Date | Type | Department | Care Team | Description | +--------+ + + + + | 05/13/ | Telephone | [facility] | Frandy Teresa, | Other | | 2013 | | NEUROSURGERY [address] | DO [address] | | | | | [address] | [address] [place], [place] | | | | | [place], [place] | [id number] | | | | | [address] | | | | | | [phone] | | | +--------+ + + + [...] Encounter - Shayne Aragon Cert MA - 05/13/2014 4:09 PM PDTMessage relayed to anai garcia. SHAYNE ARAGON eleFrandy Diaz DO - 05/13/2014 3:53 PM PDTShe needs pain control from her PCP. Surger y will help. Please let us know if she is getting weak. For now lets let the trauma from the fall settle before rushing into anything. Thanks. elephone Grzegorz solis - Shayne Aragon Cert MA - 05/13/2014 1:[address] Teresa. SHAYNE ARAGON elephone Melanie Rivera - 05/13/2014 1:15 PM PDTPatient called and stated she fell on the 14t h and is having extreme pain and numbness in her right leg states her pain level is at a 7. She has not had any loss of bowels or bladder.Electronically signed by Melanie Osborne at 0 05/13/2014 1:16 PM PDTdocumented in this encounter Plan of [...] [facility] | | | | | | [place] [address] | | | | | | [phone] | | | | | | | | +--------+---------+ + + + documented as of this encounter Visit Diagnoses Not on filedocumented in this encounter"
--- OUTSIDE RECORDS SUMMARY | ~2020-04-20 | XMS | Encounter Summary ---
Demographics + + + | Address | [address] | | | [place] [address] | + + + | Home Phone | | + + + | Preferred Language | Unknown | + + + | Marital Status | | + + + | Pentecostalism Affiliation | 1013 | + + + [...] [place] | | | | | [address] | | + + + + + Care Team Providers + +------+ + | Care Culinary Assistant Name | Role | Phone | [...] + + | 08/22/ | Documentati | [facility] | Katharine Moncada, | Other (urgent | | 2019 | on | CARDIOLOGY [place] | Technologist | report) | | | | [address] | | | | | | [place] | | | | | | [address] | | | | | | [phone] | | | +--------+ + + + [...] | | | | | [place] [address] | | | | | | [phone] | | | | | | | | +--------+---------+ + + + documented as of this encounter Visit Diagnoses Not on filedocumented in this encounter"
--- OUTSIDE RECORDS SUMMARY | ~2020-04-20 | XMS | Encounter Summary ---
Demographics + + + | Address | [address] | | | [place] [address] | + + + | Home Phone [...] [place], [place] | | | | | [address] | | + + + + + Care Team Providers + +------+ + | Care Choirmaster Name | Role | Phone | + +------+ + PCP | Unavailable | + +------+ + Encounter Details +--------+ + + + + | Date | Type | Department | Care Team | Description | +--------+ + + + + | 12/06/ | Hospital | [facility] | | | | 1994 | Encounter | MED CTR LABORATORY | | | | | | [address] | | | | | | [place] | | | | | | [address] | | | | | | [phone] | | | +--------+ + + + [...] [facility] | | | | | | [place] [address] | | | | | | [phone] | | | | | | | | +--------+---------+ + + + documented as of this encounter Visit Diagnoses Not on filedocumented in this encounter"
--- OUTSIDE RECORDS SUMMARY | ~2020-04-20 | XMS | Encounter Summary ---
Demographics + + + | Address | [address] | | | [place] [address] | + + + | Home Phone [...] [place], [place] | | | | | [address] | | + + + + + Care Team Providers + +------+ + | Care Audit Lead Name | Role | Phone | + +------+ + PCP | Unavailable | + +------+ + Encounter Details +--------+ + + + + | Date | Type | Department | Care Team | Description | +--------+ + + + + | 04/16/ | Hospital | [facility] | | | | 1997 | Encounter | MED CTR XRAY [address] | | | | | | [address] | | | | | | [place] [address] | | | | | | [phone] | | | +--------+ + + + [...] | | | | | [place] [address] | | | | | | [phone] | | | | | | | | +--------+---------+ + + + documented as of this encounter Visit Diagnoses Not on filedocumented in this encounter"
--- OUTSIDE RECORDS SUMMARY | ~2020-04-20 | XMS | Encounter Summary ---
Demographics + + + | Address | [address] | | | [place] [address] | + + + | Home Phone [...] [place] | | | | | [address] | | + + + + + Care Team Providers + +------+ + | Care Executive Vice President Business Development Name | Role | Phone | + [...] + + | 08/13/ | Documentati | [facility] | Katharine Moncada, | Other (urgent | | 2019 | on | CARDIOLOGY [place] | Technologist | report) | | | | [address] | | | | | | [place] | | | | | | [address] | | | | | | [phone] | | | +--------+ + + + [...] [facility] | | | | | | [place] [address] | | | | | | [phone] | | | | | | | | +--------+---------+ + + + documented as of this encounter Visit Diagnoses Not on filedocumented in this encounter"
--- OUTSIDE RECORDS SUMMARY | ~2020-04-20 | XMS | Clinical Summary ---
Demographics + + + | Address | [address] | | | [place] [address] | + + + | Home Phone | | + + + | Preferred Language | Unknown | + + + | Marital Status | Single | + + + | Gnosticism Affiliation | Unknown | + + + [...] [place] | | | | | [address] | | + + + + + Care Team Providers + +------+ + | Care Felt Hat Pouncing Operator Hand Name | Role | Phone | + +------+ + PCP | Unavailable | + +------+ + Source Comments EDWARD is fully live on both [facility] Ambulatory and [facility] InPatient.[facility] Allergies Not on File Medications Not [...] | [facility] | xxxxxxxxxx | 02/22/20 | [phone] | [address] | [facility]ica | | | RE A & | | 15-Pre | 1 | [address] | re | | | B | | sent | | [place] | | | | | | | | [address] | | + +--------+ +--------+ + +--------+ + +--------+ +--------+ + + | Guarantor Name | Accoun | Relation to | Date | Phone | Billing Address | | | t Type | Patient | of | | | | | | | | | | + +--------+ +--------+ + + | CINDY ARNDT | Person | Self | [birth year] | [address] | | al/Fam | | 1955 | [phone] | [address] [place] | | | devonte | | | 5 (Home) | [address] | + +--------+ +--------+ + +"
--- OUTSIDE RECORDS SUMMARY | ~2020-04-20 | XMS | Encounter Summary ---
Demographics + + + | Address | [address] | | | [place] [address] | + + + | Home Phone [...] [place], [place] | | | | | [address] | | + + + + + Care Team Providers + +------+ + | Care Pushcart Peddler Name | Role | Phone | + +------+ + PCP | Unavailable | + +------+ + Encounter Details +--------+ + + + + | Date | Type | Department | Care Team | Description | +--------+ + + + + | 04/16/ | Hospital | [facility] | | | | 1997 | Encounter | MED CTR XRAY [address] | | | | | [address] | | | | | | [place] [address] | | | | | | [phone] | | | +--------+ + + + [...] | | | | | [place] [address] | | | | | | [phone] | | | | | | | | +--------+---------+ + + + documented as of this encounter Visit Diagnoses Not on filedocumented in this encounter"
--- OUTSIDE RECORDS SUMMARY | ~2020-04-20 | XMS | Encounter Summary ---
Demographics + + + | Address | [address] | | | [place] [address] | + + + | Home Phone [...] [place] | | | | | [address] | | + + + + + Care Team Providers + +------+ + | Care District Administrative Assistant Name | Role | Phone | [...] + + | 08/20/ | Documentati | [facility] | Katharine Moncada, | Other (urgent | | 2019 | on | CARDIOLOGY [place] | Technologist | report) | | | | [address] | | | | | | [place] | | | | | | [address] | | | | | | [phone] | | | +--------+ + + + [...] Progress Notes Katharine Moncada, Technologist - 08/20/2019 2:08 PM PDTReceived urgent report 08/20/19 Pt had a self triggered 08/19/19 at 15:38 106 BPM Called pt and she slept all [...] [facility] | | | | | | [place] [address] | | | | | | [phone] | | | | | | | | +--------+---------+ + + + documented as of this encounter Visit Diagnoses Not on filedocumented in this encounter"
--- OUTSIDE RECORDS SUMMARY | ~2020-04-20 | XMS | Encounter Summary ---
Demographics + + + | Address | [address] | | | [place] [address] | + + + | Home Phone [...] [place] | | | | | [address] | | + + + + + Care Team Providers + +------+ + | Care Hide Inspector Name | Role | Phone | + +------+ + | Basim Bolanos MD | PCP | | + +------+ + Encounter Details +--------+ + + + + | Date | Type | Department | Care Team | Description | +--------+ + + + + | 03/01/ | Abstract | [facility] [place] | [facility], | | | 2012 | | GASTROENTEROLOGY | FORTUNATO Thomas [address] | | | | | [address] | [address] | | | | | [address] [place], [place] | [place], [place] | | | | | [address] | [address] | | | | | [phone] | | | +--------+ + + + [...] [facility] | | | | | | [place] [address] | | | | | | [phone] | | | | | | | | +--------+---------+ + + + documented as of this encounter Visit Diagnoses Not on filedocumented in this encounter"
--- OUTSIDE RECORDS SUMMARY | ~2020-04-20 | XMS | Encounter Summary ---
Demographics + + + | Address | [address] | | | [place] [address] | + + + | Home Phone [...] [place] | | | | | [address] | | + + + + + Care Team Providers + +------+ + | Care Hog Worker Name | Role | Phone | + +------+ + | Natalee Andersen NP | PCP | | + +------+ + Encounter Details +--------+ + + + + | Date | Type | Department | Care Team | Description | +--------+ + + + + | 07/06/ | Hospital | [facility] | Latricia Feliciano | | | 2014 | Encounter | MED CTR ACUTE | D, PT [address] | | | | | PHYSICAL THERAPY | [place] | | | | | [address] | [address] | | | | | [place] [address] | | | | | | [phone] | | | +--------+ + + + [...] + + + +---------+ + + | Murray-3 Fatty | Take 1,000 mg by | [...] [facility] | | | | | | [place] [address] | | | | | | [phone] | | | | | | | | +--------+---------+ + + + documented as of this encounter Visit Diagnoses Not on filedocumented in this encounter"
--- OUTSIDE RECORDS SUMMARY | ~2020-04-20 | XMS | Encounter Summary ---
Demographics + + + | Address | [address] | | | [place] [address] | + + + | Home Phone [...] [place] | | | | | [address] | | + + + + + Care Team Providers + +------+ + | Care Coffee Break Attendant Name | Role | Phone | [...] + + | 03/06/ | Office | [facility] | Deon Gonzales | ROGERS (obstructive | | 2012 | Visit | SLEEP DISORDER [address] | MD [address] | sleep apnea) | | | | [address] [place] | [address] [place] | (Primary Dx); | | | | [place] [address] | [place] [address] | Sleepiness | | | | [phone] | [phone] | | | | | | | [...] differen t from the original. 03/06/13 [address] [facility] Sleepiness Scale Sitting and reading 3 Watching [...] minutes in traffic 0 Total score 18 iDeon schneider Jr., MD - 03/06/2013 9:49 AM PDTFormatting [...] and she gets back to sleep immediately. Sh yesy denies night sweats and she denies nocturnal [...] tablet, Take 10 mg by mouth ni linda., Disp: , Rfl: ; Magnesium 250 MG [...] by mouth Daily., Disp: , Rfl: ; [place]-3 Fatty Acids (FISH OIL CONCENTRATE) 1000 MG [...] discussed this with her and am s syedagesting that we increase the number of hours [...] patient; the majority of time was spent c nguyen. CC: Dr. Enmanuel Bolanos. documented in th is encounter Miscellaneous Notes Miscellaneous - [facility] - 03/06/2013 12:00 AM PDT iscellaneous - [facility] - 03/06/2013 12:00 AM PDTEle ctronically signed by Mariah Schulte at 03/07/2013 8:24 AM PDTdocumented in this encounter Plan of [...] [facility] | | | | | | [place] [address] | | | | | | [phone] | | | | | | | | +--------+---------+ + + + documented as of this encounter Visit Diagnoses + + | Diagnosis | + + | ROGERS (obstructive sleep apnea) - Primary Obstructive sleep apnea (adult) (pediatric) | + + | Sleepiness Other alteration of consciousness | + + documented in this encounter"
--- OUTSIDE RECORDS SUMMARY | ~2020-04-20 | XMS | Encounter Summary ---
Demographics + + + | Address | [address] | | | [place] [address] | + + + | Home Phone [...] [place], [place] | | | | | [address] | | + + + + + Care Team Providers + +------+ + | Care Mold Machine Operator Name | Role | Phone | + +------+ + PCP | Unavailable | + +------+ + Encounter Details +--------+ + + + + | Date | Type | Department | Care Team | Description | +--------+ + + + + | 01/25/ | Hospital | [facility] | | | | 2002 | Encounter | MED CTR XRAY [address] | | | | | | [address] | | | | | | [place] [address] | | | | | | [phone] | | | +--------+ + + + [...] | | | | | | [place] [address] | | | | | | [phone] | | | | | | | | +--------+---------+ + + + documented as of this encounter Visit Diagnoses Not on filedocumented in this encounter"
--- OUTSIDE RECORDS SUMMARY | ~2020-04-20 | XMS | Encounter Summary ---
Demographics + + + | Address | [address] | | | [place] [address] | + + + | Home Phone [...] [place] | | | | | [address] | | + + + + + Care Team Providers + +------+ + | Care Door Machine Operator Name | Role | Phone | + +------+ + | Adriano Patrick MD | PCP | | + +------+ + Reason for Visit +--------+--------+ + | Reason | Onset | Comments | | | Date | | +--------+--------+ + | Other | 07/24/ | Patient is worried about paying for monitor. | | | 2018 | | +--------+--------+ + Encounter Details +--------+ + + + + | Date | Type | Department | Care Team | Description | +--------+ + + + + | 07/24/ | Telephone | [facility] | Ashley Chávez | Other (Patient is | | 2018 | | CARDIOLOGY [place], Manager Paid | worried about paying | | | | [address] | | for monitor. ) | | | | [place] | | | | | | [address] | | | | | | [phone] | | | +--------+ + + + [...] Miscellaneous Notes Telephone Encounter - Ashley Chávez, Manager Paid - 07/24/2019 11:13 AM Seferino t says that medicare's portion to pay for upcoming monitor is worrying her because the last monitor she had with us she had to pay over $400. Patient is wondering if she must get the monitor done. I told her it is hard to know what is going on if we don't have any data to look at. Patient stated understanding. I told her I would talk to Dr Peterson and our AUTH gals to see what can be done. JDW:PRINT TRAFFIC MANAGER-AAMA. [facility] umented in this encounter Plan of [...] | | | | | | [place] [address] | | | | | | [phone] | | | | | | | | +--------+---------+ + + + documented as of this encounter Visit Diagnoses Not on filedocumented in this encounter"
--- OUTSIDE RECORDS SUMMARY | ~2020-04-20 | XMS | Encounter Summary ---
Demographics + + + | Address | [address] | | | [place] [address] | + + + | Home Phone [...] [place] | | | | | [address] | | + + + + + Care Team Providers + +------+ + | Care Life Educator Name | Role | Phone [...] | | | spondylolist | | [place] | | | | | hesis | | [place], | | | | | Spinal | | [place] [address] | | | | | stenosis, | | Phone: | | | | | lumbar | | [phone] | | | | | region, | | Fax: | | | | | without | | [phone] | | | | | neurogenic | [...] | | | | | | | [place] | | | | | | [...] | | | | | | [place] | | | | | | | [...] | | | | | | [place]G [place] | | | | | | | [...] + + | 07/02/ | Hospital | [facility] | Frandy Teresa, | Degenerative disc | | 2013 - | Encounter | [facility] | DO [address] | disease, lumbar | | | | [address] | [address] | (Primary Dx); | | 07/05/ | | [place] [address] | [phone] | Diabetes mellitus | | 2013 | | [phone] | | ([facility]); Disturbance | | | | | | [...] might be different fro m the original. [facility] DISCHARGE SUMMARY PATIENT NAME: Cindy Arndt [...] to SNF. DISPOSITION: SNF ([facility]) DISCHARGE MEDICATIONS Medications prior to admission [...] Take 15 mg by mouth nightl y. Imler-3 Fatty Acids (FISH OIL CONCENTRATE) 1000 MG [...] + + + +---------+ + + | Imler-3 Fatty | Take 1,000 mg by | [...] Lynn PA-C - 07/04/2014 7:43 AM PDT [facility] PROGRESS NOTE Pt. Name/Age/: Cindy Arndt 58 y.o. 1955 Med. Record Number: [id number] Date of admission: 07/02/2014 Subjective: The patient [...] home medications. D/C plan: Home tomorrow with [facility]. D/c mari drain and riley cath today. D/c drift miner. Patient Active Problem List Diagnosis LUMBAR DISC [...] signed by: Chris Nicole, 07/04/2014 7:45 [facility] Chris Lynn PA-C - 07/03/2014 7:13 AM PDT . [facility] PROGRESS NOTE Pt. Name/Age/: Cindy Arndt 58 y.o. 1955 Med. Record Number: [id number] Date of admission: 07/02/2014 Subjective: The patient [...] Electronically signed by: Chris Nicole, 07/03/2014 7:13 [facility] on Smith, KRIS - 07/03/2014 6:50 [...] signed by: Frandy Teresa DO, 07/02/2014 11:15 [facility] by Frandy Teresa DO at 06/2014 11:15 AM PDTFrandy Teresa DO - 07/02/2014 11:15 AM [id number] [facility] [place], [place] [id number] FAX: NEUROSURGERY HISTORY AND PHYSICAL EXAMINATION CHIEF [...] disintegrating tablet Take 15 mg by mouth earnestine eldridge. Imler-3 Fatty Acids (FISH OIL CONCENTRATE) 1000 MG [...] no apparent deficits with short or termite inspector memory. CRANIAL NERVES: II: Acuity is intact. [...] Intrinsics 5 5 Ulnar Intrinsics 5 5 Derrick Worker Well Service Strength 5 5 Hip Flexion 5 4* [...] documented in this en counter Procedure Notes [facility] - 07/12/2014 12:00 AM PDT 14 1:45 PM [facility] - 07/04/2014 12:00 AM PDT [facility] - 07/02/2014 12:00 AM PDT documented in this encounter Miscellaneous Notes Plan of Care - ONBASE [facility] - 07/12/2014 12:00 AM PDT iscellaneous - [facility] - 07/12/2014 12:00 AM PDTElec tronically signed by Mariah Schulte at 07/12/2014 1:45 PM PDTMiscellaneous - [facility] - 07/12/2014 12:00 AM PDT i scellaneous - [place] [facility] - 07/12/2014 12:00 AM PDT lan of Care - Joe Louis RN - 07/05/2014 5:00 PM PDTProb [...] to her legs. Voiding better this aft juan francisco. Had 650 out in one void. Still [...] facility today at 1645. Electronically signed by: ALNDON Cervantes 07/05/2014 16:06 lan of Care - [...] and I will be going to a senior care as I have 16 steps to my [...] TBD) Equipment Recommendations: tub bench;hand held shower head;scientific advisor;comfort height toilet ( pt. has all necessary [...] might be different fro m the original. [facility]ISON [facility] TRANSFER ORDERS Patient Name: Cindy Arndt Patient : 1955 Gender: female Date of Admission: 07/02/2014 Date of Discharge: 07/05/2014 Admitting Provider: Frandy Teresa DO Discharging Provider: Chris Nicole PA-C Consultants: none PCP: Natalee Andersen [facility] transferring to: [facility] Provider after transfer: PCP and Dr. Frandy Teresa CODE STATUS: [x] Attempt CPR [] Do not resuscitate If patient is pulseless and not breathing, RN/WAITER/WAITRESS SECOND CLASS may pronounce . Advanced Directives included: [] [...] for this patient. Diet: [] As tolerated TRANSITION MGR RN may upgrade or downgrade diet as condition Indicates. [x] RN may downgrade diet as indicated. Type: [] Continue current diet of: Diet and Supplements Diet DIET CONSISTENT CARBOHYDRATE Number of Occurrences: -1 Days [] Other: Consistency/Precautions: [] Whole [] Thin Liquids [] Cut-up [] Northwest Thick [] Advanced Chopped [] Honey Thickened [] Chopped [] Advanced Ground [] 1:1 feedings [] Ground/Pureed [] Other: Tube Feedings: [] PEG [] GT [] JT [] NGT [] Formula type: (Trauma Coordinator may change/substitute if indicated). [] Continuous Rate: [...] & Management for: ____same as above [] TRANSITION MGR RN Evaluation &Management for: [] Other: Wound/Skin Care: [...] Diagnosis/Indication Follow up appointments and consultations: Dr. Miranda Date/Time: _[address] Date/Time I have [...] tablet 1-2 tablets Take 1-2 tablets by mo ut every 4 hours as needed for Pain. [...] mg Take 15 mg by mouth ni linda. Imler-3 Fatty Acids (FISH OIL CONCENTRATE) 1000 MG [...] Associated Diagnoses: Obstructive sleep apnea (adult) (pediatric) IChris PA-C, certify that post hospital penitentiary care is medically nec essary on a continuing basis for any of the conditions for which he/she received care during this hospitalization. Check one: [x] Skilled [] Intermediate Additional Orders/Instructions: Physician's signature:__Chris Nicole PA-C 07/05/2014 13:18 [facility] JMDEKarsten [facility] USE ONLY: [] Admitting orders verbally reviewed with Admitting Physician, modified where appropriate, and approved. Verbal Order from Date: Time: _ RN name: RN signature: [] Admitting orders reviewed, modified where appropriate, and approved. Physician's signature: Date: Time: lan of Care - Edwin Heather montanez, PT - 07/05/2014 12:41 PM PDTProblem: General Plan of Care (Adult, Obstetrics) Goal: Care Plan Shift Summary & Review . Physical Therapy Plan of Care Treatment Note Summary: Pt. having difficulty with pain management, has elected SNF before returning home to indpt apt. living. Has not been able to tolerate progressive walking and doing stairs [facility] stay due to multiple pain c/o. Attempted to see pt. 1145, however had just rec eived pain medication and requested PT return, SPL 9/10. At 1205 pt contacted PT for assist OOB due to left LE spasms and need for position change. Sitting at EOB on arrival, MATH INTERVENTIONIST pres ent. Pt. donned LSO brace, stood [...] rail, cane, SBA-modified in dpt. lan of [place] - Franca Narvaez RN - 07/05/2014 10:43 [...] to all three facilities (per Layne). Tigist portillo is requesting a FWW with a seat due to lack of endurance. When patient is walking in [facility] with a regular FWW she has to stop frequently and states she feels very weak, like sh e may fall. Patient lives alone. Outpatient prescriptions are filled at [facility] in [facility]. Electronically signed by: Franca Narvaez RN 07/05/2014 10:43 lan of [place] Layne Rivers - 07/05/2014 10:39 AM PDTFaxed referral to Gabriela Stout and [facility]idia Tran. [place] : [id number] and [place]: [id number] Electronically signed by: Layne Collado 07/05/2014 10:40 Received a call from [facility]. They can accept Cindy. Received a call from [facility] and they can't accept Cindy. Tanna from [facility] called and they don't have any beds at this time Electronically signed by: Layne Collado 07/05/2014 12:22 Started the SNF packet. Electronically signed by: Layne Collado 07/05/2014 12:56 lan of [place] - Sandhya Benites RN - 07/05/2014 5:14 AM [...] better when completed. lan of Care - José Field RRT - 07/04/2014 11:57 PM PDTProblem: General Plan of Care (Adult, Obstetric s) Goal: Care Plan Shift Summary & Review . On CPAP with 5 LPM bled in sats maintaining will continue to monitor Electronically signed by: Joés Alvarez RRT 07/04/2014 23:57 lan of Care - K Madison mccallum AGRAWAL - 07/04/2014 5:46 PM PDTProblem: General [...] table w/reach. Occupational Therapy will follow Cindy Arndt other (see comments) (eval +1 addl ses azeem) until discharge from therapy or discharged from the hospital. Occupational Therapy Discharge Recommendations are: Recommended discharge disposition: home independent;other (see comments) (will have assist from sister(s) as needed initially) Post discharge occupational therapy recommendation: (none anticipated at this time; TBD) Equipment Recommendations: tub bench;hand held shower head;scientific advisor;comfort height toilet ( pt. has all necessary equipment) Planned Interventions: ADL retraining;transfer training Patient Status/Goals Reflects last filed data of patient status; may be from multiple contributors. Grooming: Status: did not occur today Assist: Utilizes: STG: Status: New Goal:modified independent LTG: Status: Goal: UE Dressing: Status: SBA Assist: Utilizes: STG: Status: Goal: LTG: Status: Goal: LE Dressing: Status: SBA Utilizes: scientific advisor STG: Status: New Goal: modified independent LTG: [...] bed mobil ity. Pt has been using PASTER HAT LINING and pain pills during the night. Zofran [...] by herself in a small apartment in [place]. Patient states she has her apartment set [...] [facility] [place]. She states the Said she might benefit [facility] upon discharge. She would like me to contact [facility] to giv e them a heads up. I called and spoke to Summer at [facility] , told her patients PCP i [...] Pt. resting in bed on arrival, used PASTER HAT LINING x 2 during session. SPL 5/10. Pt. hoping to urinate blown film extrusion operator to straight cath. Sidelying to sit [...] TBD) Equipment Recommendations: tub bench;hand held shower head;scientific advisor;comfort height toilet ( pt. has all necessary [...] & Review . Outcome: Progressing Pt using PASTER HAT LINING and PO pain pills, c/o numbness on [...] and on a continuous oximeter for her PASTER HAT LINING. She was unable to do her IS because o f the medications. She has the IS at bedside with a goal of 2400. She did not require additi onal respiratory care throughout the evening. p Note - Frandy Teresa, - 07/02/2014 2:25 PM PDTDATE: 07/02/2014 SURGEON: Frandy Teresa MD. AUXILIARY POWERPLANT OPERATOR: ZANE Oh PREOPERATIVE DIAGNOSES 1. Spondylolisthesis, L5-S1. [...] x 26 mm Capstone PEEK cage from [employer] was chosen. It was filled with Infus [...] Note Cindy Arndt 58 y.o. female 1955 [id number] Proc. Date 07/02/2014 Preop Dx Spondylolisthesis L5-S1 Postop Dx same Procedure Procedure(s):MIS L5-S1 TRANSFORAMINAL LUMBAR INTERBODY FUSION Anesthesia General Surgeon Frandy Teresa DO Cloud Solutions Architect ZANE Oh EBL 100 mL Findings Findings consistent with scheduled procedure. No other abnormalities found. Complications none Specimens * No specimens in log * Drains Electronically signed by: Frandy Teresa DO 07/02/2014 14:22 [facility] documented in this en counter Plan [...] F | | | | | | [place] [address] | | | | | | [phone] | | | | | | | [...] + | [facility] | [address] | [place], [place] | [phone] | | [facility] | | [address] | | | - LABORATORY | | | | + + + + + | [facility] | [address] | [place], [place] | | | [facility] | | [id number] | | | - LABORATORY | | | | + + + + + POC Glucose (07/05/2014 11:47 AM PDT) + +-------+ + + + | Component | Value | Ref Range | Performed | Pathologist | | | | | At | Signature | + +-------+ + + + | Glucose, | 137 | 79 - 150 mg/dL | JANE [...] [address] | [place] | [phone] | | [facility] | | [address] | | | - LABORATORY | | | | + + + + + | [facility] | [address] | [place] | | | [facility] | | [address], [facility] | | | - LABORATORY | | [...] + | [facility] | [address] | [place], [place] | [phone] | | [facility] | | [address] | | | - LABORATORY | | | | + + + + + | [facility] | [address] | [place], [place] | | | [facility] | | [address] [place] [address] | | | - LABORATORY | | [...] + | [facility] | [address] | [place] | [phone] | | [facility] | | [address] | | | - LABORATORY | | | | + + + + + | [facility] | [address] | [place], [place] | | | [facility] | | [address] | | | - LABORATORY | [...] + | [facility] | [address] | [place], [place] | [phone] | | [facility] | | [address] | | | - LABORATORY | | | | + + + + + | [facility] | [address] | [place], [place] | | | [facility] | | [id number] | | | - LABORATORY | | [...] + | [facility] | [address] | [place] | [phone] | | [facility] | | [address] | | | - LABORATORY | | | | + + + + + | [facility] | [address] | [place] | | | [facility] | | [address] | | | - LABORATORY | [...] + | [facility] | [address] | [place], [place] | [phone] | | [facility] | | [address] | | | - LABORATORY | | | | + + + + + | [facility] | [address] | [place], [place] | | | [facility] | | [address] [place] [address] | | | - LABORATORY | | [...] + | [facility] | [address] | [place] | [phone] | | [facility] | | [address] | | | - LABORATORY | | | | + + + + + | [facility] | [address] | [place], [place] | | | [facility] | | [address] | | | - LABORATORY | [...] + | [facility] | [address] | [place] | [phone] | | [facility] | | [address] | | | - LABORATORY | | | | + + + + + | [facility] | [address] | [place] | | | [facility] | | [address] | | | - LABORATORY | [...] | of hardware for posterior fusion from Q2ymtkoyd S1 with interbody hardware at L5-S1. The [...] + | MISCELLANEOUS LAB | | | [phone] | + +---------+ + + | MISCELANIOUS LAB | | | [phone] | + +---------+ + + POC Glucose [...] + | [facility] | [address] | [place], [place] | [phone] | | [facility] | | [address] | | | - LABORATORY | | | | + + + + + | [facility] | [address] | [place], [place] | | | [facility] | | [address] | | | - LABORATORY | | | | + + + + + POC Glucose (07/03/2014 6:48 AM PDT) + +-------+ + + + | Component | Value | Ref Range | Performed | Pathologist | | | | | At | Signature | + +-------+ + + + | Glucose, | 117 | 79 - 150 mg/dL | JANE [...] [address] | [place] | [phone] | | [facility] | | [address] | | | - LABORATORY | | | | + + + + + | [facility] | [address] | [place] | | | [facility] | | [address] | | | - LABORATORY | [...] + | [facility] | [address] | [place], [place] | [phone] | | [facility] | | [address] | | | - LABORATORY | | | | + + + + + | [facility] | [address] | [place], [place] | | | [facility] | | [address] [place] [address] | | | - LABORATORY | | [...] + | [facility] | [address] | [place] | [phone] | | [facility] | | [address] | | | - LABORATORY | | | | + + + + + | [facility] | [address] | [place] | | | [facility] | | [address] | | | - LABORATORY | [...] + | [facility] | [address] | [place], [place] | [phone] | | [facility] | | [address] | | | - LABORATORY | | | | + + + + + | [facility] | [address] | [place], [place] | | | [facility] | | [address] [place] [address] | | | - LABORATORY | | [...] St | [place] | | | [facility] | | [address] | | | - BLOOD BANK | [...] | | | HOURS PRN, Pain, Starting e | | | | | | | [...] | | | | | Pain, Starting Tue /9/14 at | | | | | | [...] | | | | Starting Tue07/02/14 at 1635, | | | | | [...] + +---------+ +---+---+---+ | morphine 5 mg/mL PASTER HAT LINING syringe | New Bag | 07/02/20 | [...] | | | | Dose(mg): 0, Starting PASTER HAT LINING | | | | | | | Dose(mg): 1, Incremental Increase | | | | | | | PASTER HAT LINING Dose(mg): 0.5, Maximum PASTER HAT LINING | | | | | | | [...] | | | | | Vomiting, Starting Tu07/02/14 at | | | | [...] | | | | | | | Tue07/05/14 at 1135 | | | | | [...] For | | | 1 dose, [place]E [place]: enoch | | | override, | | [...] | | | | | | | Tue07/02/14 at 1635, If | | | | | | | ineffective use oxycodone if | | | | | | | ordered. If not tolerated use | | | | | | | NORCO if ordered. MAX 12 | | | [...]
--- OUTSIDE RECORDS SUMMARY | ~2020-04-20 | XMS | Encounter Summary ---
Demographics + + + | Address | [address] | | | [place] [address] | + + + | Home Phone [...] [place] | | | | | [address] | | + + + + + Care Team Providers + +------+ + | Care Recycling Manager Name | Role | Phone | [...] + + | 09/10/ | Documentati | [facility] | Katharine Moncada, | Other (urgent | | 2019 | on | CARDIOLOGY [place] | Technologist | report) | | | | [address] | | | | | | [place] | | | | | | [address] | | | | | | [phone] | | | +--------+ + + + [...] [address] | | | | | | [place] [address] | | | | | | [phone] | | | | | | | | +--------+---------+ + + + documented as of this encounter Visit Diagnoses Not on filedocumented in this encounter"
--- OUTSIDE RECORDS SUMMARY | ~2020-04-20 | XMS | Encounter Summary ---
Demographics + + + | Address | [address] | | | [place] [address] | + + + | Home Phone | | + + + | Preferred Language | Unknown | + + + | Marital Status | | + + + | Mosque Affiliation | 1013 | + + + | Race | Unknown | + + + | Ethnic Group | Unknown | + + + Author + + + | Author | [facility] | | | and [place] | + + + | Organization | [facility] | | | and [place] | + + + | Address | Unknown | + + + | Phone | Unavailable | + + + Support + + + + + | Name | Relationship | Address | Phone | + + + + + | Araceli Sibley | ECON | [place] | | | | | [address] | | + + + + + Care Team Providers + +------+ + | Care Sample Processor Name | Role | Phone | + [...] + + | 02/13/ | Office | [facility] | Dora De La Torre | History of atrial | | 2020 | Visit | CARDIOLOGY [place] | [address] | fibrillation | | | | [address] | [address] | (Primary Dx); New | | | | [address] | [place] [address] | onset left bundle | | | | [place] | [phone] | branch block (LBBB); | | | | [address] | | Benign essential | | | | [phone] | | HTN; History of | | [...] | | | | | | obesity) ([facility]) | +--------+---------+ + + + Social History [...] go back to previous dose. See Dr. 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 Her XZP2KE2 VASC score is 4 (stroke, HTN, gender) [...] She has previously seen Dr. Garland in [place], and different sleep provider in [facility] when lived over there. 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 Psychiatric/Behavioral: Bipolar/Schizophrenia. Tx'd by [employer] Vaccines: Current on flu vaccine: 2019 Current on pneumonia vaccine:PPSV 23 05/29/2013 Habits/Social : Denies history of smoking. Denies EtOH use. Denies recreational or illici t drug use. Exercises sporadically. Lives in [place] . Outpatient Medications Prior to Visit Medication [...] by mouth nightly. Blood Glucose Monitoring Suppl (T[employer]zip VERIO FLEX SYSTEM) w/Device KIT by Does [...] discomfort, patient unable to walk on eriberto dm4 the stars. Resting EKG normal sinus rhythm, arrhythmias ventricular [...] nonspecific ST-T wave abnormality rate 82 bpm, NC 176 ms, QRS 80 ms, QTC 446 ms tracing personally reviewed by me EK12/17/2019: Sinus tachycardia, nonspecific ST wave abnormalities, rate 105 bpm, NC 196 ms, QRS 74 ms, QTC 430 ms, tracing personally reviewed by me, and compared to EKG performed in February 2019, rate is less well-controlled EK01/10/2020 (metoprolol XL 50 mg twice daily. Normal sinus rhythm, new left bundle bran ch block Rate 74 bpm, NC 204 ms, QRS 138 ms, QTC 488 [...] bundle branch block. Ra te 105 bpm, NC 184 ms, QRS 144 ms, QTC 489 ms, tracing personally reviewed by me, and compar ed to EKG performed in December , rate is less well-controlled LABS Labs: 12/26/2018: ( [facility])CMP: Sodium 139, potassium 4.2, chloride 99, BUN 10, creatinine 0. 7, BNP 28. CBC: WBC 7.8, hemoglobin 14.3, hematocrit 42.7, platelets 214 Labs: 09/28/2019:( [facility]) CBC: WBC 7.8, hemoglobin 14.9, hematocrit 43.8, platelets 221. C MP: Sodium 132, potassium 4.2, chloride 95, AST 76, ALT 76, alk phos 134 Labs: 10/11/2019:( [facility]) CBC: WBC 6.7, RBC 4.97, hemoglobin 15.2, hematocrit 44.7, platel ets 200. CMP: Glucose 385, BUN 7, creatinine 0.62, GFR 97, sodium 131, potassium 4.1, chlor kelby 95, albumin 4.3, total bilirubin 0.6, AST 75, ALT 73, alk phos 144. Thyroid: TSH 4.27 Labs: 10/12/2020:( [facility]) CBC: WBC 7, RBC 4.93, hemoglobin 14.7, hematocrit 44.1, platele ts 186 normal UA CMP: Glucose 381, BUN 6, creatinine 0.63, GFR 95, sodium 133, potassium 3.8 , chloride 97, albumin 4.3, total bili 0.6, AST 62, ALT 75, alk phos 145 thyroid: TSH 3.07 Labs: 10/20/2019:( [facility]) CBC: WBC 7.1, RBC 4.93, hemoglobin [...] reviewed her EKG and Echo with her robotic welding operator Dr. Peterson, who was in clin [...] Obesity, Class III, BMI 40-49.9 (morbid obesity) ([facility]) Orders Placed This Encounter Procedures ECG 12 [...] continuity of care purp ose Preston BUCIO [facility] Cardiology 02/15/2020 docume nted in this encounter Plan of Treatment +--------+---------+ + + + | Date | Type | Specialty | Care Team | Description | +--------+---------+ + + + | 04/24/ | Office | Cardiology | Dora De La Torre | | 2019 | Visit | | [address] | | | | | | [address] | | | | | | [place] [address] | | | | | | [phone] | | | | | | | [...] | | | | | | obesity) ([facility]) | | + +--------+ + + + [...] | | | | | DORA VELAZQUEZ (0624) on | | | | | | [...]
--- OUTSIDE RECORDS SUMMARY | ~2020-04-20 | XMS | Encounter Summary ---
Demographics + + + | Address | [address] | | | [place] [address] | + + + | Home Phone [...] [place], [place] | | | | | [address] | | + + + + + Care Team Providers + +------+ + | Care Bandmill Operator Name | Role | Phone | + +------+ + PCP | Unavailable | + +------+ + Encounter Details +--------+ + + + + | Date | Type | Department | Care Team | Description | +--------+ + + + + | 03/26/ | Hospital | [facility] | | | | 2001 | Encounter | MED CTR LABORATORY | | | | | | [address] | | | | | | [place] | | | | | | [address] | | | | | | [phone] | | | +--------+ + + + [...] [place] | | | | | | [place] [address] | | | | | | [phone] | | | | | | | | +--------+---------+ + + + documented as of this encounter Visit Diagnoses Not on filedocumented in this encounter"
--- OUTSIDE RECORDS SUMMARY | ~2020-04-20 | XMS | Encounter Summary ---
Demographics + + + | Address | [address] | | | [place] [address] | + + + | Home Phone [...] [place] | | | | | [address] | | + + + + + Care Team Providers + +------+ + | Care Loss Control Technician Name | Role | Phone | + +------+ + | Adriano Patrick MD | PCP | | + +------+ + Reason for Visit +--------+--------+ + | Reason | Onset | Comments | | | Date | | +--------+--------+ + | Other | 08/16/ | Called to tell patient what Dr Peterson said. | | | 2019 | | +--------+--------+ + Encounter Details +--------+ + + + + | Date | Type | Department | Care Team | Description | +--------+ + + + + | 08/16/ | Telephone | [facility] | Ashley Chávez | Other (Called to | | 2018 | | CARDIOLOGY [place] | [place], Welfare Eligibility Worker | tell patient what | | | | [address] | | Nicholas said. ) | | | | [place] [address] | | | | | | [place] | | | | | | [address] | | | | | | [phone] | | | +--------+ + + + [...] Miscellaneous Notes Telephone Encounter - Ashley Chávez, Welfare Eligibility Worker - 08/16/2019 2:57 PM PDTCall m cierra to patient to advise of Dr. Peterson's notes. Patient stated understanding. JKASSIE:EMPLOYMENT SERVICE SPECIALIST-AAMA el ephone Encounter - Ashley Chávez Welfare Eligibility Worker - 08/16/2019 2:56 PM PDT----- Mess age from Desiree Peterson DO sent at 08/16/2019 8:06 PDT ----- Contact: Please call patient and let her know that I have reviewed all of her reports, I have not se en any significant arrhythmias that could be leading to her symptoms. We'll finish out her m onitoring, everything is looking reassuring so far from a heart standpoint. Thanks. ----- Message ----- From: Lesa Ochoa, Welfare Eligibility Worker Sent: 08/13/2019 13:31 To: Desiree Peterson DO Pt called due to two urgent reports on her monitor- both scanned in the media tab for you t o review. She said she would like a call from our office in regards to these. She stated she has been having a lot of difficulties this weekend with weakness and shortness of breath. Eric mckay advisyesy. doc umented in this encounter Plan of [...] [place] | | | | | | [place] [address] | | | | | | [phone] | | | | | | | | +--------+---------+ + + + documented as of this encounter Visit Diagnoses Not on filedocumented in this encounter"
--- OUTSIDE RECORDS SUMMARY | ~2020-04-20 | XMS | Encounter Summary ---
Demographics + + + | Address | [address] | | | [place] [address] | + + + | Home Phone [...] [place], [place] | | | | | [address] | | + + + + + Care Team Providers + +------+ + | Care Recycling Director Name | Role | Phone | + +------+ + PCP | Unavailable | + +------+ + Encounter Details +--------+ + + + + | Date | Type | Department | Care Team | Description | +--------+ + + + + | 12/22/ | Hospital | [facility] | | | | 1993 - | Encounter | MED CTR GENERIC PSY | | | | | | CONV DEPT [address] | | | | 12/25/ | | [address], | | | | 1993 | | [place] [address] | | | | | | [phone] | | | +--------+ + + + [...] | | | | | [place] [address] | | | | | | [phone] | | | | | | | | +--------+---------+ + + + documented as of this encounter Visit Diagnoses Not on filedocumented in this encounter"
--- OUTSIDE RECORDS SUMMARY | ~2020-04-20 | XMS | Encounter Summary ---
Demographics + + + | Address | [address] | | | [place] [address] | + + + | Home Phone [...] [place] | | | | | [address] | | + + + + + Care Team Providers + +------+ + | Care Power And Recovery Supervisor Name | Role | Phone | [...] [address] | [address] [place], [place] | (Primary Dx) | | | | [place], [place] | [address] | | | | | [address] | | | | | | [phone] | | | +--------+ + + + [...] [place] | | | | | | [place] [address] | | | | | | [phone] | | | | | | | [...] + | MISCELLANEOUS LAB | | | [phone] | + +---------+ + + | MISCELANIOUS LAB | | | [phone] | + +---------+ + + documented in this encounter Visit Diagnoses + + | Diagnosis | + + | Status post lumbar spinal fusion - Primary Arthrodesis status | + + documented in this encounter"
--- OUTSIDE RECORDS SUMMARY | ~2020-04-20 | XMS | Encounter Summary ---
Demographics + + + | Address | [address] | | | [place] [address] | + + + | Home Phone [...] [place] | | | | | [address] | | + + + + + Care Team Providers + +------+ + | Care Wood Polisher Name | Role | Phone | [...] | Transcriptions | + + | Interface, Systems Consultant In - 11/04/2006 3:03 AM PST | | [address] | | [place], [place] [address] [facility] | | ClinicsOPERATION RECORDMed Rec [...] skin retractor was put in place. The [place] elevators wereused to separate the | | [...]
--- OUTSIDE RECORDS SUMMARY | ~2020-04-20 | XMS | Encounter Summary ---
Demographics + + + | Address | [address] | | | [place] [address] | + + + | Home Phone [...] [place] | | | | | [address] | | + + + + + Care Team Providers + +------+ + | Care Government Guard Name | Role | Phone | + +------+ + PCP | Unavailable | + +------+ + Encounter Details +--------+ + + + + | Date | Type | Department | Care Team | Description | +--------+ + + + + | 04/27/ | Hospital | [facility] | Sage Garza MD | | | 2001 | Encounter | HOSPITAL EMERGENCY | | | | | | CENTER [address] | | [address] [place], [place] | | | | | | [address] | | | | | | [phone] | | | +--------+ + + + [...] | | | | | [place] [address] | | | | | | [phone] | | | | | | | | +--------+---------+ + + + documented as of this encounter Visit Diagnoses Not on filedocumented in this encounter"
--- OUTSIDE RECORDS SUMMARY | ~2020-04-20 | XMS | Encounter Summary ---
Demographics + + + | Address | [address] | | | [place] [address] | + + + | Home Phone [...] [place] | | | | | [address] | | + + + + + Care Team Providers + +------+ + | Care Knock Out Hand Name | Role | Phone | [...] + + | 08/20/ | Documentati | [facility] | Katharine Moncada, | Other (urgent | | 2019 | on | CARDIOLOGY [place] | Technologist | report) | | | | [address] | | | | | | [place] | | | | | | [address] | | | | | | [phone] | | | +--------+ + + + [...] [place] | | | | | | [place] [address] | | | | | | [phone] | | | | | | | | +--------+---------+ + + + documented as of this encounter Visit Diagnoses Not on filedocumented in this encounter"
--- OUTSIDE RECORDS SUMMARY | ~2020-04-20 | XMS | Encounter Summary ---
Demographics + + + | Address | [address] | | | [place] [address] | + + + | Home Phone [...] [place] | | | | | [address] | | + + + + + Care Team Providers + +------+ + | Care Wash Worker Name | Role | Phone | + +------+ + | Natalee Andersen NP | PCP | | + +------+ + Encounter Details +--------+ + + + + | Date | Type | Department | Care Team | Description | +--------+ + + + + | 06/26/ | Hospital | [facility] | Heather Cordero PT | | | 2014 | Encounter | MED CTR ACUTE | [address] | | | | | PHYSICAL THERAPY | [place] | | | | | [address] | [address] | | | | | [place] [address] | | | | | | [phone] | | | +--------+ + + + [...] + + + +---------+ + + | Union-3 Fatty | Take 1,000 mg by | [...] [place] | | | | | | [place] [address] | | | | | | [phone] | | | | | | | | +--------+---------+ + + + documented as of this encounter Visit Diagnoses Not on filedocumented in this encounter"
--- OUTSIDE RECORDS SUMMARY | ~2020-04-20 | XMS | Encounter Summary ---
Demographics + + + | Address | [address] | | | [place] [address] | + + + | Home Phone [...] [place], [place] | | | | | [address] | | + + + + + Care Team Providers + +------+ + | Care Steel Detailer Name | Role | Phone | + +------+ + PCP | Unavailable | + +------+ + Encounter Details +--------+ + + + + | Date | Type | Department | Care Team | Description | +--------+ + + + + | 09/23/ | Hospital | [facility] | | | | 1994 | Encounter | MED CTR LABORATORY | | | | | | [address] | | | | | | [place] | | | | | | [address] | | | | | | [phone] | | | +--------+ + + + [...] [place] | | | | | | [place] [address] | | | | | | [phone] | | | | | | | | +--------+---------+ + + + documented as of this encounter Visit Diagnoses Not on filedocumented in this encounter"
--- OUTSIDE RECORDS SUMMARY | ~2020-04-20 | XMS | Encounter Summary ---
Demographics + + + | Address | [address] | | | [place] [address] | + + + | Home Phone [...] [place] | | | | | [address] | | + + + + + Care Team Providers + +------+ + | Care Skiver Blockers Name | Role | Phone | + +------+ + | Adriano Patrick MD | PCP | | + +------+ + Reason for Visit +--------+--------+ + | Reason | Onset | Comments | | | Date | | +--------+--------+ + | Other | 08/08/ | Questions about coverage. | | | 2018 | | +--------+--------+ + Encounter Details +--------+ + + + + | Date | Type | Department | Care Team | Description | +--------+ + + + + | 08/08/ | Telephone | [facility] | Ashley Chávez | Other (Questions | | 2019 | | CARDIOLOGY [place] Abad, Lockstitch Zipper Setter | about coverage. ) | | | | [address] | | | | | | [place] | | | | | | [address] | | | | | | [phone] | | | +--------+ + + + [...] Miscellaneous Notes Telephone Encounter - Ashley Chávez, Lockstitch Zipper Setter - 08/08/2019 10:58 AM Seferino foster called and wanted to know if her monitor needed to be AUTHORIZED. I asked Danelle and she said that because she had medicare part A and B, it does not need kayode or auth. I told this information to the patient, patient stated understanding. JKASSIE:RIGGER CHIEF-AAMA. [facility] umented in this encounter [...] [place] | | | | | | [place] [address] | | | | | | [phone] | | | | | | | | +--------+---------+ + + + documented as of this encounter Visit Diagnoses Not on filedocumented in this encounter"
--- OUTSIDE RECORDS SUMMARY | ~2020-04-20 | XMS | Encounter Summary ---
Demographics + + + | Address | [address] | | | [place] [address] | + + + | Home Phone [...] [place] | | | | | [address] | | + + + + + Care Team Providers + +------+ + | Care Associate Curator Name | Role | Phone | + +------+ + | Natalee Andersen NP | PCP | | + +------+ + Reason for Visit +--------+--------+ + | Reason | Onset | Comments | | | Date | | +--------+--------+ + | Other | 07/01/ | Surgery | | | 2013 | | +--------+--------+ + Encounter Details +--------+ + + + + | Date | Type | Department | Care Team | Description | +--------+ + + + + | 07/01/ | Telephone | [facility] | Frandy Teresa, | Other (Surgery ) | | 2013 | | NEUROSURGERY [address] | DO [address] | | | | | [address] | [address] [place], [place] | | | | | [place], [place] | [id number] | | | | | [address] | | | | | | [phone] | | | +--------+ + + + [...] Encounter - Shayne Aragon Cert MA - 07/01/2014 2:27 PM KOBY called Cindy and let her know that Dr. Teresa did give the okay to re-schedule her surgery based on her rece nt labs that were done. She has been scheduled for 07-02-14 and will be checking in at the ou tpatient procedure at 9:15am. All pre operative instructions were given at this time. SHAYNE ARAGON documented in this encounter Plan [...] [address] | | | | | | [place] [address] | | | | | | [phone] | | | | | | | | +--------+---------+ + + + documented as of this encounter Visit Diagnoses Not on filedocumented in this encounter"
--- OUTSIDE RECORDS SUMMARY | ~2020-04-20 | XMS | Encounter Summary ---
Demographics + + + | Address | [address] | | | [place] [address] | + + + | Home Phone [...] [place], [place] | | | | | [address] | | + + + + + Care Team Providers + +------+ + | Care Central Aisle Cashier Name | Role | Phone | + +------+ + PCP | Unavailable | + +------+ + Encounter Details +--------+ + + + + | Date | Type | Department | Care Team | Description | +--------+ + + + + | 12/27/ | Hospital | [facility] | | | | 1997 | Encounter | MED CTR EMERGENCY | | | | | | [address] | | | | | | [place] | | | | | | [address] | | | | | | [phone] | | | +--------+ + + + [...] [place] | | | | | | [place] [address] | | | | | | [phone] | | | | | | | | +--------+---------+ + + + documented as of this encounter Visit Diagnoses Not on filedocumented in this encounter"
--- OUTSIDE RECORDS SUMMARY | ~2020-04-20 | XMS | Encounter Summary ---
Demographics + + + | Address | [address] | | | [place] [address] | + + + | Home Phone [...] | + + + + + | Arcaeli Sibley | ECON | [place] | | | | | [address] | | + + + + + Care Team Providers + +------+ + | Care Ict Account Manager Name | Role | Phone [...] | | | | | | | [address] | | | | | | | Phone: | | | | | | | [phone] | | | | | | | Fax: | | | | | | | [phone] | | +--------+ + + + + + Reason for Visit + + + | Reason | Comments | + + + | Follow-up | 4 Week PO | + + + Encounter Details +--------+---------+ + + + | Date | Type | Department | Care Team | Description | +--------+---------+ + + + | 07/25/ | Office | [facility] | Frandy Teresa, | Lumbar spondylosis | | 2013 | Visit | NEUROSURGERY [address] | DO [address] | (Primary Dx); S/P | | | | [address] | [address] [place], [place] | lumbar fusion | | | | [place], [place] | [address] | | | | | [address] | | | | | | [phone] | | | +--------+---------+ + + + [...] Frandy Teresa DO [address] [facility] [address] [place] [address] FAX: NEUROSURGERY SURGICAL FOLLOW-UP CHIEF COMPLAINT: Chief [...] Take 15 mg by mouth nightl y. Daisy-3 Fatty Acids (FISH OIL CONCENTRATE) 1000 MG [...] | 04/24/ | Office | Cardiology | Britt Dora | | | 2020 | Visit | | CAROLINE Mendez [address] | | | | | | [address] | | | | | | [place] [address] | | | | | | [phone] | | | | | | | [...] 2 or 3 Vw (09/27/2014 10:18 AM [facility]) + + | Specimen | + + [...] + | MISCELLANEOUS LAB | | | [phone] | + +---------+ + + | MISCELANIOUS LAB | | | [phone] | + +---------+ + + documented in this encounter Visit Diagnoses + + | Diagnosis | + + | Lumbar spondylosis - Primary Lumbosacral spondylosis without myelopathy | + + | S/P lumbar fusion Arthrodesis status | + + documented in this encounter
--- OUTSIDE RECORDS SUMMARY | ~2020-04-20 | XMS | Encounter Summary ---
Demographics + + + | Address | [address] | | | [place] [address] | + + + | Home Phone [...] [place] | | | | | [address] | | + + + + + Care Team Providers + +------+ + | Care Salesforce Developer Name | Role | Phone | [...] + + | 09/10/ | Documentati | [facility] | Katharine Moncada, | Other (urgent | | 2019 | on | CARDIOLOGY [place] | Technologist | report) | | | | [address] | | | | | | [place] | | | | | | [address] | | | | | | [phone] | | | +--------+ + + + [...] [place] | | | | | | [place] [address] | | | | | | [phone] | | | | | | | | +--------+---------+ + + + documented as of this encounter Visit Diagnoses Not on filedocumented in this encounter"
--- OUTSIDE RECORDS SUMMARY | ~2020-04-20 | XMS | Encounter Summary ---
Demographics + + + | Address | [address] | | | [place] [address] | + + + | Home Phone [...] [place], [place] | | | | | [address] | | + + + + + Care Team Providers + +------+ + | Care Residential Manager Name | Role | Phone | + +------+ + PCP | Unavailable | + +------+ + Encounter Details +--------+ + + + + | Date | Type | Department | Care Team | Description | +--------+ + + + + | 05/23/ | Hospital | [facility] | | | | 1991 | Encounter | MED CTR XRAY [address] | | | | | | [address] | | | | | | [place] [address] | | | | | | [phone] | | | +--------+ + + + [...] | | | | | [place] [address] | | | | | | [phone] | | | | | | | | +--------+---------+ + + + documented as of this encounter Visit Diagnoses Not on filedocumented in this encounter"
--- OUTSIDE RECORDS SUMMARY | ~2020-04-20 | XMS | Encounter Summary ---
Demographics + + + | Address | [address] | | | [place] [address] | + + + | Home Phone [...] [place] | | | | | [address] | | + + + + + Care Team Providers + +------+ + | Care Barratte Operator Name | Role | Phone | + +------+ + | Natalee Andersen NP | PCP | | + +------+ + Reason for Visit +--------+--------+ + | Reason | Onset | Comments | | | Date | | +--------+--------+ + | Other | 06/20/ | surgery reminder | | | 2013 | | +--------+--------+ + Encounter Details +--------+ + + + + | Date | Type | Department | Care Team | Description | +--------+ + + + + | 06/20/ | Telephone | [facility] | Frandy Teresa, | Other (surgery | | 2013 | | NEUROSURGERY [address] | DO [address] | reminder ) | | | | [address] | [address] [place], [place] | | | | | [place], [place] | [id number] | | | | | [address] | | | | | | [phone] | | | +--------+ + + + [...] Encounter - Shayne Aragon Cert MA - 06/21/2014 8:11 AM Arti returned my call today. She is to check in at the outpatient procedure center at 12:00pm. All pre oper ative instructions were given at this time. SHAYNE ARAGON elephone Encounromero r - Shayne Aragon Cert MA - 06/20/2014 4:30 PM PDTLeft message for Cindy regarding surg destinee on 06/25/14. Asked that she please return my call. SHAYNE ARAGON documented in this encounter Plan [...] [address] | | | | | | [place] [address] | | | | | | [phone] | | | | | | | | +--------+---------+ + + + documented as of this encounter Visit Diagnoses Not on filedocumented in this encounter"
--- OUTSIDE RECORDS SUMMARY | ~2020-04-20 | XMS | Encounter Summary ---
Demographics + + + | Address | [address] | | | [place] [address] | + + + | Home Phone [...] [place], [place] | | | | | [address] | | + + + + + Care Team Providers + +------+ + | Care Cloth Shrinker Name | Role | Phone | + +------+ + PCP | Unavailable | + +------+ + Encounter Details +--------+ + + + + | Date | Type | Department | Care Team | Description | +--------+ + + + + | 07/23/ | Hospital | [facility] | | | | 1992 - | Encounter | MED CTR GENERIC PSY | | | | | | CONV DEPT [address] | | | | 07/28/ | | [address], | | | | 1992 | | [place] [address] | | | | | | [phone] | | | +--------+ + + + [...] | | | | | [place] [address] | | | | | | [phone] | | | | | | | | +--------+---------+ + + + documented as of this encounter Visit Diagnoses Not on filedocumented in this encounter"
--- OUTSIDE RECORDS SUMMARY | ~2020-04-20 | XMS | Encounter Summary ---
Demographics + + + | Address | [address] | | | [place] [address] | + + + | Home Phone [...] [place], [place] | | | | | [address] | | + + + + + Care Team Providers + +------+ + | Care Core Blower Name | Role | Phone | + +------+ + PCP | Unavailable | + +------+ + Encounter Details +--------+ + + + + | Date | Type | Department | Care Team | Description | +--------+ + + + + | 03/26/ | Hospital | [facility] | | | | 2001 | Encounter | MED CTR LABORATORY | | | | | | [address] | | | | | | [place] | | | | | | [address] | | | | | | [phone] | | | +--------+ + + + [...] | | | | | [place] [address] | | | | | | [phone] | | | | | | | | +--------+---------+ + + + documented as of this encounter Visit Diagnoses Not on filedocumented in this encounter"
--- OUTSIDE RECORDS SUMMARY | ~2020-04-20 | XMS | Encounter Summary ---
Demographics + + + | Address | [address] | | | [place] [address] | + + + | Home Phone [...] [place] | | | | | [address] | | + + + + + Care Team Providers + +------+ + | Care Faucets Assembler Name | Role | Phone | [...] + | 07/29/ | Telephone | [facility] | Frandy Cagle, | Other (multiple | | 2013 | | NEUROSURGERY [address] | DO [address] | questions) | | | | [facility] [address] | [address] [place], [place] | | | | | [place], [place] | [id number] | | | | | [address] | | | | | | [phone] | | | +--------+ + + + [...] and I might get a repeat MRI. Quec[place] ordered. Thanks. ddendum Note - Shayne Aragon [...] - 07/29/2014 11:19 AM [facility]. She would [...] refill be mailed to her for her [place] 10/325mg which was given to her on [...] PO last . Please advise. SHAYNE ARAGON elephone Lashawn Salcedo - 07/29/2014 11:13 AM PDTPatient called with [...] by Lashawn Metzger at 07/29/2014 11:15 AM PDTdocumented in this encounter Plan of [...] | | | | | [place] [address] | | | | | | [phone] | | | | | | | | +--------+---------+ + + + documented as of this encounter Visit Diagnoses Not on filedocumented in this encounter"
--- OUTSIDE RECORDS SUMMARY | ~2020-04-20 | XMS | Encounter Summary ---
Demographics + + + | Address | [address] | | | [place] [address] | + + + | Home Phone [...] [place] | | | | | [address] | | + + + + + Care Team Providers + +------+ + | Care Sales Mgr Name | Role | Phone | [...] | | | spondylolist | | [address] | | | | | hesis | | [place], | | | | | Spinal | | [place] [address] | | | | | stenosis, | | Phone: | | | | | lumbar | | [phone] | | | | | region, | | Fax: | | | | | without | | [phone] | | | | | neurogenic | [...] | | | | | [address] | [address] [place] | | | | | [place] | [phone] | | | | | [address] | | | | | | [phone] | | | +--------+ + + + [...] Easy mask AW. DL times one with [facility] easy view | | | 2 | Intubation | | | | 2 | | | | | 6 | | | +----+---+ + + | | 1 | AN Bite | | | | 2 | Block | | | | 2 | | | | | 7 | | | +----+---+ + + | | 1 | Stuyvesant | | | | 2 | 43-degrees | | | | 3 | | | | | 1 | | | +----+---+ + + | | 1 | Stuyvesant off | | | | 4 | [...] EVALUATION Cindy Arndt 58 y.o. female 1955 [id number] Procedure: Procedure(s):MIS L5-S1 TRANSFORAMINAL LUMBAR INTERBODY FUSION [...] Zen Mccord MD 07/02/2014 14:55 [facility] nesthesia Preproc edure Evaluation - Zen Mccord MD - 07/02/2014 8:36 AM PDTFormatting of this note m ight be different from the original. ANESTHESIA PREANESTHESIA EVALUATION Cindy Arndt 58 y.o. female 1955 [id number] Scheduled procedure LAMINECTOMY PLIF/TLIF INSTRUMENTATION [184] - [...] [place] | | | | | | [place] [address] | | | | | | [phone] | | | | | | | [...]
--- OUTSIDE RECORDS SUMMARY | ~2020-04-20 | XMS | Encounter Summary ---
Demographics + + + | Address | [address] | | | [place] [address] | + + + | Home Phone [...] [place] | | | | | [address] | | + + + + + Care Team Providers + +------+ + | Care Music Internship Name | Role | Phone | [...] | | | | | [address] [facility] [address] | [place] [address] | | | | | [place]itha [place] | [phone] | | | | | [address] | | | | | | [phone] | | | +--------+ + + + [...] Percocet prescription and faxed it to them ([facility]) this morning like I told them I would. Thank you for doing that, but it should not have been necessary. Telephone Encounter - Lincoln Cheema MD - 07/06/2014 8:59 PM PDTCalled regarding increased p ain. She was taking percocet. She was discharged to a [facility] on hydrocodone. I talked to the nurse [...] [address] | | | | | | [place] [address] | | | | | | [phone] | | | | | | | | +--------+---------+ + + + documented as of this encounter Visit Diagnoses Not on filedocumented in this encounter"
--- OUTSIDE RECORDS SUMMARY | ~2020-04-20 | XMS | Encounter Summary ---
Demographics + + + | Address | [address] | | | [place] [address] | + + + | Home Phone [...] [place] | | | | | [address] | | + + + + + Care Team Providers + +------+ + | Care Drapery Estimator Name | Role | Phone | + [...] [place] | | | | | | [address] | | | | | | [phone] | | | +--------+ + + + [...] | | | | | [place] [address] | | | | | | [phone] | | | | | | | | +--------+---------+ + + + documented as of this encounter Visit Diagnoses Not on filedocumented in this encounter"
--- OUTSIDE RECORDS SUMMARY | ~2020-04-20 | XMS | Encounter Summary ---
Demographics + + + | Address | [address] | | | [place] [address] | + + + | Home Phone [...] [place], [place] | | | | | [address] | | + + + + + Care Team Providers + +------+ + | Care Finisher Machine Name | Role | Phone | + +------+ + PCP | Unavailable | + +------+ + Encounter Details +--------+ + + + + | Date | Type | Department | Care Team | Description | +--------+ + + + + | 12/22/ | Hospital | [facility] | | | | 1993 - | Encounter | MED CTR GENERIC PSY | | | | | | CONV DEPT [address] | | | | 12/25/ | | [place], | | | | 1993 | | [place] [address] | | | | | | [phone] | | | +--------+ + + + [...] | | | | | [place] [address] | | | | | | [phone] | | | | | | | | +--------+---------+ + + + documented as of this encounter Visit Diagnoses Not on filedocumented in this encounter"
--- OUTSIDE RECORDS SUMMARY | ~2020-04-20 | XMS | Encounter Summary ---
Demographics + + + | Address | [address] | | | [place] [address] | + + + | Home Phone [...] [place] | | | | | [address] | | + + + + + Care Team Providers + +------+ + | Care Relationship Specialist Name | Role | Phone | [...] + + | 08/09/ | Documentati | [facility] | Katharine Moncada, | Other (end of study) | | 2019 | on | CARDIOLOGY [place] | Technologist | | | | | [address] | | | | | | [place], [place] | | | | | | [address] | | | | | | [phone] | | | +--------+ + + + [...] Technologist - 08/09/2019 11:59 PM PDT Cardiac Food Preparation Supervisor Date of Event Monitor: 08/09/19 Referring Physician: [...] [address] | | | | | | [place] [address] | | | | | | [phone] | | | | | | | | +--------+---------+ + + + documented as of this encounter Visit Diagnoses Not on filedocumented in this encounter"
--- OUTSIDE RECORDS SUMMARY | ~2020-04-20 | XMS | Encounter Summary ---
Demographics + + + | Address | [address] | | | [place] [address] | + + + | Home Phone [...] | [facility] | | | and [place] | + [...] [place] | | | | | [address] | | + + + + + Care Team Providers + +------+ + | Care Stull Hewer Name | Role | Phone | + [...] + | 06/28/ | Telephone | [facility] | Ashley Chávez | Other (Patient | | 2018 | | CARDIOLOGY [place] Abad, Cell Biologist | called to cancel her | | | | [address] | | appointment) | | | | [place] | | | | | | [address] | | | | | | [phone] | | | +--------+ + + + [...] Miscellaneous Notes Telephone Encounter - Ashley Chávez, Cell Biologist - 06/28/2019 2:12 PM PDTPatien t said [...] CANTU | | | | | | [place] [address] | | | | | | [phone] | | | | | | | | +--------+---------+ + + + documented as of this encounter Visit Diagnoses Not on filedocumented in this encounter"
--- OUTSIDE RECORDS SUMMARY | ~2020-04-20 | XMS | Encounter Summary ---
Demographics + + + | Address | [address] | | | [place] [address] | + + + | Home Phone [...] [place] | | | | | [address] | | + + + + + Care Team Providers + +------+ + | Care Waterproof Coating Machine Tender Name | Role | Phone [...] | Services | ogy | Epigastric | [facility], | Tyrese Shelley MD | | | Required | | abdominal | [place], | [address], | | | | | pain GERD | CHICK GRADER [address] | [address] | | | | | (gastroesoph | [address] | [place], | | | | | ageal reflux | [address] | [place] [address] | | | | | disease) | [place], | Phone: | | | | | Fatty liver | [place] [address] | [phone] | | | | | DM | Phone: | Fax: | | | | | (diabetes | [phone] | [phone] | | | | | mellitus) | Fax: | | | | | | (HCC) | [phone] | | +--------+ + + + + + Reason for Visit + + + | Reason | Comments | + + + | Gastroesophageal | epigastric pain | | Reflux | | + + + Encounter Details +--------+---------+ + + + | Date | Type | Department | Care Team | Description | +--------+---------+ + + + | 03/06/ | Office | [facility] | [facility], | Epigastric abdominal | | 2012 | Visit | GASTROENTEROLOGY | FORTUNATO Thomas [address] | pain (Primary Dx); | | | | [address] | [address] | GERD | | | | [address] [place], [place] | [place] | (gastroesophageal | | | | [address] | [address] | reflux disease); | | | | [phone] | | Fatty liver; DM | | [...] years ago by Dr. Saravanan Tsai, in [facility]. Colonoscopy was done 05/[address] Hamlin in [facility]. Allergies Allergen Reactions Demerol Duloxetine Erythromycin Fluoxetine [...] encounter Miscellaneous Notes Miscellaneous - ONBASE SCAN [facility] - 03/06/2013 12:00 AM PDT iscellaneous - ONBASE SCAN [facility] - 03/06/2013 12:00 AM PDTEle ctronically signed by Mariah Schulte at 04/09/2013 9:48 AM PDTMiscellaneous - ONBASE SCAN [facility] T - 03/06/2013 12:00 AM PDT d ocumented in this encounter Plan of Treatment +--------+---------+ [...] | | | | | [place] [address] | | | | | | [phone] | | | | | | | [...]
--- OUTSIDE RECORDS SUMMARY | ~2020-04-20 | XMS | Encounter Summary ---
Demographics + + + | Address | [address] | | | [place] [address] | + + + | Home Phone [...] [place] | | | | | [address] | | + + + + + Care Team Providers + +------+ + | Care Tile Edger Name | Role | Phone | + [...] + + | 08/30/ | Telephone | [facility] | Ashley Chávez | Other (Patient wants | | 2018 | | CARDIOLOGY [place] | Pollo, Disassembler Product | to take monitor | | | | [address] | | off. ) | | | | [address] | | | | | | [place] | | | | | | [address] | | | | | | [phone] | | | +--------+ + + + [...] Miscellaneous Notes Telephone Encounter - Ashley Chávez, Disassembler Product - 08/30/2019 9:19 AM PSTTd t called because she wanted to know if she could take her monitor off. I spoke with Dr Peterson, and she says that patient is ok to take the monitor off. She has worn the monitor for 3 weeks now. Call made to patient to advise of Dr. Peterson's notes. Patient was thankful for the news. Patient stated understanding JDW:DRAINMAN-AAMA. [facility] umented in this encounter Plan of Treatment +--------+---------+ + + + | Date | Type | Specialty | Care Team | Description | +--------+---------+ + + + | 04/24/ | Office | Cardiology | BrittDora | | | 2019 | Visit | | CAROLINE Mendez [address] | | | | | | [address] | | | | | | [place] [address] | | | | | | [phone] | | | | | | | | +--------+---------+ + + + documented as of this encounter Visit Diagnoses Not on filedocumented in this encounter"
--- OUTSIDE RECORDS SUMMARY | ~2020-04-20 | XMS | Encounter Summary ---
Demographics + + + | Address | [address] | | | [place] [address] | + + + | Home Phone [...] [place] | | | | | [address] | | + + + + + Care Team Providers + +------+ + | Care Experimental Assembler Name | Role | Phone | [...] + + | 12/17/ | Office | [facility] | Dora De La Torre | History of atrial | | 2020 | Visit | CARDIOLOGY [place] | CAROLINE M[address] | fibrillation; Benign | | | | [address] | [address] | essential HTN; | | | | [address] | [place] [address] | History of | | | | [place], [place] | [phone] | hypothyroidism; | | | | [address] | | Stress | | | | [phone] | | hyperglycemia; | | | | | | History of sleep | | | | | | apnea; History of | | | | | | stroke; Obesity, | | | | | | Class III, BMI | | | | | | 40-49.9 (morbid | | | | | | obesity) ([facility]); Mild | | | | | | [...] of fatigue and shortness of breath. Her LNL1YQ2 VASC score is 4 (stroke, HTN, gender) , and Dr. Peterson did not anticoagulate he r due to low incidence of atrial fib. Her current and previous testing and procedures are detailed below. She was seen in the emergency room on October 11, 2019 at [facility] and presented wi th paranoia feeling that knives were chasing her , so went to the emergency room so that she could feel safe and Had [facility] evaluation and discharged home Labs performed at [...] 405 and [facility] and she was to be started on Abilify. She was seen again in the emergency room on October 19 and , [id number] for sim ilar complaints with increased delusions, [...] She has previously seen Dr. Garland in [place], and different provider in [place] when lived over there. She reports she [...] thirst or hunger. Psychiatric/Behavioral: Bipolar/Schizophrenia. Tx'd by Veodin Vaccines: Current on flu vaccine: 2019 Current on pneumonia vaccine:PPSV 23 05/29/2013 Habits/Social : Denies history of smoking. Denies EtOH use. Denies recreational or illici t drug use. Exercises sporadically. Lives in [place] . Outpatient Medications Prior to Visit Medication [...] Take by mouth. Blood Glucose Monitoring Suppl (Lolabox VERIO FLEX SYSTEM) w/Device KIT by Does not ap ply route. budesonide-formoterol (SYMBICORT) 160-4.5 mcg/puff inhaler Inhale 2 puffs into the lung s 2 (two) times daily. calcium carbonate antacid (TUMS ULTRA 1000) 1000 MG CHEW Chew and swallow 1,000 mg 4 ti mes daily as needed. Cholecalciferol (VITAMIN D-3) 89652 units CAPS Take 50,000 Units by mouth [...] chest discomfort, patient unable to walk on [employer] [place]. Resting EKG normal sinus rhythm, arrhythmias ventricular [...] nonspecific ST-T wave abnormality rate 82 bpm, NV 176 ms, QRS 80 ms, QTC 446 ms tracing personally reviewed by me EK12/17/2019: Sinus tachycardia, nonspecific ST wave abnormalities, rate 105 bpm, NV 196 ms, QRS 74 ms, QTC 430 ms, tracing personally reviewed by me, and compared to EKG performed in February 2019, rate is less well-controlled LABS Labs: 12/26/2018: ( [facility])CMP: Sodium 139, potassium 4.2, chloride 99, BUN 10, creatinine 0. 7, BNP 28. CBC: WBC 7.8, hemoglobin 14.3, hematocrit 42.7, platelets 214 Labs: 09/28/2019:( [facility]) CBC: WBC 7.8, hemoglobin 14.9, hematocrit 43.8, platelets 221. C MP: Sodium 132, potassium 4.2, chloride 95, AST 76, ALT 76, alk phos 134 Labs: 10/11/2019:( [facility]) CBC: WBC 6.7, RBC 4.97, hemoglobin 15.2, hematocrit 44.7, platel ets 200. CMP: Glucose 385, BUN 7, creatinine 0.62, GFR 97, sodium 131, potassium 4.1, chlor kelby 95, albumin 4.3, total bilirubin 0.6, AST 75, ALT 73, alk phos 144. Thyroid: TSH 4.27 Labs: 10/12/2020:( [facility]) CBC: WBC 7, RBC 4.93, hemoglobin 14.7, hematocrit 44.1, platele ts 186 normal UA CMP: Glucose 381, BUN 6, creatinine 0.63, GFR 95, sodium 133, potassium 3.8 , chloride 97, albumin 4.3, total bili 0.6, AST 62, ALT 75, alk phos 145 thyroid: TSH 3.07 Labs: 10/20/2019:( [facility]) CBC: WBC 7.1, RBC 4.93, hemoglobin [...] in a prescription to her local pharmacy [facility]'s . I made no other changes to [...] continuity of care purp ose Preston [facility]UC[facility] Cardiology 12/17/2019 docume nted in this encounter [...] [address] | | | | | | [place] [address] | | | | | | [phone] | | | | | | | [...]
--- OUTSIDE RECORDS SUMMARY | ~2020-04-20 | XMS | Encounter Summary ---
Demographics + + + | Address | [address] | | | [place] [address] | + + + | Home Phone [...] [place] | | | | | [address] | | + + + + + Care Team Providers + +------+ + | Care Roof Technician Name | Role | Phone | [...] | | | [address] | [place] [address] | | | | | [place] [address] | | | | | | [phone] | | | +--------+ + + + [...] | | | | | | [facility]NOTE [facility] [address] | | | | | | [phone] | | | | | | | [...]
--- OUTSIDE RECORDS SUMMARY | ~2020-04-20 | XMS | Encounter Summary ---
Demographics + + + | Address | [address] | | | [place] [address] | + + + | Home Phone [...] [place] | | | | | [address] | | + + + + + Care Team Providers + +------+ + | Care Back Tender Cylinder Name | Role | Phone | + [...] + + | 06/12/ | Office | [facility] | Chris Nicole, | Spondylisthesis | | 2013 | Visit | NEUROSURGERY [address] | PA-C [address] | (Primary Dx); | | | | [address] | [place], [place] | Radiculopathy of | | | | [place] | [address] | leg; Lumbar spine | | | | [address] | | instability; Lumbar | | | | [phone] | | spondylosis; | | | | [...] f rom the original. ZANE Castillo [address] [place], [place] [address] FAX: NEUROSURGERY HISTORY AND PHYSICAL EXAMINATION CHIEF [...] Take 15 mg by mouth nightl y. [place]-3 Fatty Acids (FISH OIL CONCENTRATE) 1000 MG [...] has no apparent deficits with short or meterman memory. CRANIAL NERVES: II: Acuity is intact. [...] Intrinsics 5 5 Ulnar Intrinsics 5 5 Precision Machine Operator Strength 5 5 Hip Flexion [...] [address] | | | | | | [place] [address] | | | | | | [phone] | | | | | | | [...]
--- OUTSIDE RECORDS SUMMARY | ~2020-04-20 | XMS | Encounter Summary ---
Demographics + + + | Address | [address] | | | [place] [address] | + + + | Home Phone [...] [place] | | | | | [address] | | + + + + + Care Team Providers + +------+ + | Care Licensed Investment Sales Assistant Name | Role | Phone | [...] + + | 08/28/ | Telephone | [facility] | Ashley Chávez | Other (Patient has | | 2018 | | CARDIOLOGY [place] Abad, Carrier Washer | questions about | | | | [address] | | monitor. ) | | | | [place] | | | | | | [address] | | | | | | [phone] | | | +--------+ + + + [...] Miscellaneous Notes Telephone Encounter - Ashley Chávez, Carrier Washer - 08/28/2019 8:32 AM Rory foster says [...] that if she chooses. Patient stated understanding. JPolloW:CLINICAL NURSE MANAGER-AAMA. sandro umphilipp in this encounter Plan of Treatment +--------+---------+ + + + | Date | Type | Specialty | Care Team | Description | +--------+---------+ + + + | 04/24/ | Office | Cardiology | RoxannmarianDora juarez | | | 2019 | Visit | | CAROLINE Mendez [address] | | | | | | [address] | | | | | | [place] [address] | | | | | | [phone] | | | | | | | | +--------+---------+ + + + documented as of this encounter Visit Diagnoses Not on filedocumented in this encounter"
--- OUTSIDE RECORDS SUMMARY | ~2020-04-20 | XMS | Encounter Summary ---
Demographics + + + | Address | [address] | | | [place] [address] | + + + | Home Phone [...] [place] | | | | | [address] | | + + + + + Care Team Providers + +------+ + | Care Crosscutter Name | Role | Phone | + [...] + + | 08/14/ | Documentati | [facility] | Katharine Moncada, | Other (urgent | | 2019 | on | CARDIOLOGY [place] | Technologist | report) | | | | [address] | | | | | | [place] | | | | | | [address] | | | | | | [phone] | | | +--------+ + + + [...] | | | | | [place] [address] | | | | | | [phone] | | | | | | | | +--------+---------+ + + + documented as of this encounter Visit Diagnoses Not on filedocumented in this encounter"
--- OUTSIDE RECORDS SUMMARY | ~2020-04-20 | XMS | Encounter Summary ---
Demographics + + + | Address | [address] | | | [place] [address] | + + + | Home Phone [...] [place], [place] | | | | | [address] | | + + + + + Care Team Providers + +------+ + | Care Maxillofacial Prosthodontist Name | Role | Phone | + +------+ + PCP | Unavailable | + +------+ + Encounter Details +--------+ + + + + | Date | Type | Department | Care Team | Description | +--------+ + + + + | 12/31/ | Hospital | [facility] | | | | 1996 | Encounter | MED CTR XRAY [address] | | | | | | [place] | | | | | | [place] [address] | | | | | | [phone] | | | +--------+ + + + [...] | | | | | [place] [address] | | | | | | [phone] | | | | | | | | +--------+---------+ + + + documented as of this encounter Visit Diagnoses Not on filedocumented in this encounter"
--- OUTSIDE RECORDS SUMMARY | ~2020-04-20 | XMS | Encounter Summary ---
Demographics + + + | Address | [address] | | | [place] [address] | + + + | Home Phone [...] [place], [place] | | | | | [address] | | + + + + + Care Team Providers + +------+ + | Care Lath Hand Name | Role | Phone | + +------+ + PCP | Unavailable | + +------+ + Encounter Details +--------+ + + + + | Date | Type | Department | Care Team | Description | +--------+ + + + + | 06/23/ | Hospital | [facility] | | | | 2000 | Encounter | MED CTR GENERIC OP | | | | | | CONV DEPT [address] | | | | | | [place], | | | | | | [place] [address] | | | | | | [phone] | | | +--------+ + + + [...] [address] | | | | | | [place] [address] | | | | | | [phone] | | | | | | | | +--------+---------+ + + + documented as of this encounter Visit Diagnoses Not on filedocumented in this encounter"
--- OUTSIDE RECORDS SUMMARY | ~2020-04-20 | XMS | Encounter Summary ---
Demographics + + + | Address | [address] | | | [place] [address] | + + + | Home Phone [...] Author + + + | Author | [facility] | + + + | Organization | [facility] | + + + | Address | Unknown | + + + | Phone | Unavailable | + + + Support + + + + + | Name | Relationship | Address | Phone | + + + + + | Kelsy Bautista | ECON | [address] | | | | | [place] | | | | | [address] | | + + + + + Care Team Providers + +------+ + | Care Tile Sprayer Name | Role | Phone | [...] Clinic | | | | | | [facility], [address] | | | | | | [place], [place] | | | | | | [address] | | | | | | [phone] | | | +--------+ + + + [...] as of this encounter Progress Notes Interface, Marksmanship Instructor In - 12/11/2006 5:03 AM [facility] DATE: 07/03/97 INFECTIOUS DISEASE [...]
--- OUTSIDE RECORDS SUMMARY | ~2020-04-20 | XMS | Encounter Summary ---
Demographics + + + | Address | [address] | | | [place] [address] | + + + | Home Phone [...] [place] | | | | | [address] | | + + + + + Care Team Providers + +------+ + | Care Neck Band Operator Name | Role | Phone | [...] | | | | | | | [address] | | | | | | | Phone: | | | | | | | [phone] | | | | | | | Fax: | | | | | | | [phone] | | +--------+ + + + + + Reason for Visit + + + | Reason | Comments | + + + | Follow-up | 4 Week PO | + + + Encounter Details +--------+---------+ + + + | Date | Type | Department | Care Team | Description | +--------+---------+ + + + | 07/25/ | Office | [facility] | Frandy Teresa, | Lumbar spondylosis | | 2013 | Visit | NEUR[address]URGERY [address] | DO [address] | (Primary Dx); S/P | | | | [address] | [address] [place], [place] | lumbar fusion | | | | [place] | [address] | | | | | [address] | | | | | | [phone] | | | +--------+---------+ + + + [...] Frandy Teresa DO [address] [place] [address] FAX: NEUROSURGERY SURGICAL FOLLOW-UP CHIEF COMPLAINT: Chief [...] Take 15 mg by mouth nightl y. [place]-3 Fatty Acids (FISH OIL CONCENTRATE) 1000 MG [...] F | | | | | | [place] [address] | | | | | | [phone] | | | | | | | [...] 2 or 3 Vw (09/27/2014 10:18 AM [facility]) + + | Specimen | + + [...] + | MISCELLANEOUS LAB | | | [phone] | + +---------+ + + | MISCELANIOUS LAB | | | [phone] | + +---------+ + + documented in this encounter Visit Diagnoses + + | Diagnosis | + + | Lumbar spondylosis - Primary Lumbosacral spondylosis without myelopathy | + + | S/P lumbar fusion Arthrodesis status | + + documented in this encounter
--- OUTSIDE RECORDS SUMMARY | ~2020-04-20 | XMS | Encounter Summary ---
Demographics + + + | Address | [address] | | | [place] [address] | + + + | Home Phone [...] [place] | | | | | [address] | | + + + + + Care Team Providers + +------+ + | Care Abrasive Mixer Name | Role | Phone | [...] + + | 08/16/ | Documentati | [facility] | Katharine Moncada, | Other (urgent | | 2019 | on | CARDIOLOGY [place] | Technologist | report) | | | | [address] | | | | | | [place] | | | | | | [address] | | | | | | [phone] | | | +--------+ + + + [...] | | | | | [place] [address] | | | | | | [phone] | | | | | | | | +--------+---------+ + + + documented as of this encounter Visit Diagnoses Not on filedocumented in this encounter"
--- OUTSIDE RECORDS SUMMARY | ~2020-04-20 | XMS | Encounter Summary ---
Demographics + + + | Address | [address] | | | [place] [address] | + + + | Home Phone [...] [place] | | | | | [address] | | + + + + + Care Team Providers + +------+ + | Care Cigarette Book Maker Name | Role | Phone | [...] [address] | [address] [place], [place] | fusion | | | | [place], [place] | [address] | | | | | [address] | | | | | | [phone] | | | +--------+ + + + [...] | | 2020 | Visit | | Vanessa, BIODIESEL PLANT MANAGER [address] | | | | | | [address] | | | | | | [place] [address] | | | | | | [phone] | | | | | | | | +--------+---------+ + + + documented as of this encounter Visit Diagnoses + + | Diagnosis | + + | Lumbago - Primary | + + | S/P lumbar fusion Arthrodesis status | + + documented in this encounter"
--- OUTSIDE RECORDS SUMMARY | ~2020-04-20 | XMS | Encounter Summary ---
Demographics + + + | Address | [address] | | | [place] [address] | + + + | Home Phone [...] [place] | | | | | [address] | | + + + + + Care Team Providers + +------+ + | Care Card Decorator Name | Role | Phone | + +------+ + | Naatlee Andersen NP | PCP | | + [...] | | | spondylolist | | [address] | | | | | hesis | | [place], | | | | | Spinal | | [place] [address] | | | | | stenosis, | | Phone: | | | | | lumbar | | [phone] | | | | | region, | | Fax: | | | | | without | | [phone] | | | | | neurogenic | [...] | | | | | | | SD ARTHDSIS | | | | | | [...] | | | | | | ION [place] | | | | | | | [...] | | | | | | SEG SD | | | | | | | [...] + + | 07/02/ | Surgery | [facility] | Frandy Teresa, | MIS L5-S1 | | 2013 | | MED CTR OR INTRA OP | DO [address] | TRANSFORAMINAL | | | | [address] | [address] [place], [place] | LUMBAR INTERBODY | | | | [place] | [id number] | FUSION | | | | [address] | | | | | | [phone] | | | +--------+---------+ + + + [...] might be different fro m the original. [facility] DISCHARGE SUMMARY PATIENT NAME: Cindy Arndt [...] Stable for discharge to SNF. DISPOSITION: SNF ([facility]) DISCHARGE MEDICATIONS Medications prior to admission that [...] Take 15 mg by mouth nightl y. Crossett-3 Fatty Acids (FISH OIL CONCENTRATE) 1000 MG [...] + + + +---------+ + + | Crossett-3 Fatty | Take 1,000 mg by | [...] Lynn PA-C - 07/04/2014 7:43 AM PDT [facility] PROGRESS NOTE Pt. Name/Age/: Cindy Arndt 58 y.o. 1955 Med. Record Number: [id number] Date of admission: 07/02/2014 Subjective: The patient [...] mari drain and riley cath today. D/c medical safety director. Patient Active Problem List Diagnosis LUMBAR DISC [...] signed by: Chris Nicole, 07/04/2014 7:45 [facility] Chris Lynn PA-C - 07/03/2014 7:13 AM PDT . [facility] Services PROGRESS NOTE Pt. Name/Age/: Cindy Arndt 58 y.o. 1955 Med. Record Number: [id number] Date of admission: 07/02/2014 Subjective: The patient [...] Electronically signed by: Chris Nicole, 07/03/2014 7:13 [facility] on Smith, KRIS - 07/03/2014 6:50 [...] signed by: Frandy Teresa DO, 07/02/2014 11:15 [facility] Frandy Teresa DO at 06/2014 11:15 AM PDTDreyFrandy tim DO - 07/02/2014 11:15 AM [id number] [facility], [address] [place] [address] FAX: NEUROSURGERY HISTORY AND PHYSICAL EXAMINATION CHIEF [...] Take 15 mg by mouth nigh tlgaston. Crossett-3 Fatty Acids (FISH OIL CONCENTRATE) 1000 MG [...] no apparent deficits with short or termite control technician memory. CRANIAL NERVES: II: Acuity is [...] Intrinsics 5 5 Ulnar Intrinsics 5 5 Consulting Services Manager Strength 5 5 Hip Flexion 5 4* [...] in this en counter Procedure Notes [facility] - 07/12/2014 12:00 AM PDT 14 1:45 [facility] - 07/04/2014 12:00 AM PDT [facility] - 07/02/2014 12:00 AM PDT documented in this encounter Miscellaneous Notes Plan of Care - [facility] - 07/12/2014 12:00 AM PDT iscellaneous - [facility] 07/12/2014 12:00 AM PDTElec tronically signed by Mariah Schulte at 07/12/2014 1:45 PM PDTMiscellaneous - [facility] - 07/12/2014 12:00 AM PDT i scellaneous - [facility] - 07/12/2014 12:00 AM PDT [...] and I will be going to a [facility] as I have 16 steps to my [...] TBD) Equipment Recommendations: tub bench;hand held shower head;wrapping machine operator;comfort height toilet ( pt. has all necessary [...] be different fro m the original. [facility] Patient Name: Cindy Anrdt Patient : 1955 Gender: female Date of Admission: 07/02/2014 Date of Discharge: 07/05/2014 Admitting Provider: Frandy Teresa DO Discharging Provider: Chris Nicole PA-C Consultants: none PCP: Natalee Andersen [facility] transferring to: [facility] Provider after transfer: PCP and Dr. Frandy Teresa CODE STATUS: [x] Attempt CPR [] Do not resuscitate If patient is pulseless and not breathing, RN/VEHICLE WASHER may pronounce . Advanced Directives included: [] [...] for this patient. Diet: [] As tolerated DOCUMENT COORDINATOR may upgrade or downgrade diet as condition Indicates. [x] RN may downgrade diet as indicated. Type: [] Continue current diet of: Diet and Supplements Diet DIET CONSISTENT CARBOHYDRATE Number of Occurrences: -1 Days [] Other: Consistency/Precautions: [] Whole [] Thin Liquids [] Cut-up [] Fults Thick [] Advanced Chopped [] Honey Thickened [] Chopped [] Advanced Ground [] 1:1 feedings [] Ground/Pureed [] Other: Tube Feedings: [] PEG [] GT [] JT [] NGT [] Formula type: (Clinical Data Programmer may change/substitute if indicated). [] Continuous Rate: [...] & Management for: ____same as above [] DOCUMENT COORDINATOR Evaluation &Management for: [] Other: Wound/Skin Care: [...] tablet 1-2 tablets Take 1-2 tablets by [facility] every 4 hours as needed for [...] Take 15 mg by mouth ni ghtly. Crossett-3 Fatty Acids (FISH OIL CONCENTRATE) 1000 MG [...] Chris Nicole PA-C, certify that post hospital longterm care is medically nec essary on a continuing basis for any of the conditions for which he/she received care during this hospitalization. Check one: [x] Skilled [] Intermediate Additional Orders/Instructions: Physician's signature:__Chris Nicole PA-C 07/05/2014 13:18 [facility] USE ONLY: [] Admitting [...] tolerate progressive walking and doing stairs du [facility] hospital stay due to multiple pain c/o. Attempted to see pt. 1145, however had just rec eived pain medication and requested PT return, SPL 9/10. At 1205 pt contacted PT for assist OOB due to left LE spasms and need for position change. Sitting at EOB on arrival, SENIOR HARDWARE ENGINEER pres ent. Pt. donned LSO brace, stood [...] endurance. When patient is walking [facility] [place] with a regular FWW she has to stop frequently and states she feels very weak, like sh e may fall. Patient lives alone. Outpatient prescriptions are filled at [facility] in [facility]. Electronically signed by: Franca Narvaez RN 07/05/2014 10:43 lan of [facility]ne [facility] - 07/05/2014 10:39 AM PDTFaxed referral to Gabriela Stout and Lidia Tran. [place] : [id number] and [place]: [id number] Electronically signed by: Layne Collado 07/05/2014 10:40 Received a call from [facility]. They can accept Cindy. Received a call from [facility] and they can't accept Cindy. Tanna from [facility] called and they don't have any beds at this time Electronically signed by: Layne Collado 07/05/2014 12:22 Started the SNF packet. Electronically signed by: Layne Collado 07/05/2014 12:56 [facility] of [facility] Sandhya Benites RN - 07/05/2014 5:14 [...] TBD) Equipment Recommendations: tub bench;hand held shower head;wrapping machine operator;comfort height toilet ( pt. has all necessary equipment) Planned Interventions: ADL retraining;transfer training Patient Status/Goals Reflects last filed data of patient status; may be from multiple contributors. Grooming: Status: did not occur today Assist: Utilizes: STG: Status: New Goal:modified independent LTG: Status: Goal: UE Dressing: Status: SBA Assist: Utilizes: STG: Status: Goal: LTG: Status: Goal: LE Dressing: Status: SBA Utilizes: wrapping machine operator STG: Status: New Goal: modified independent LTG: [...] bed mobil ity. Pt has been using HOME STAGER and pain pills during the night. Zofran [...] by herself in a small apartment in [place]. Patient states she has her apartment set [...] to come from [facility] [place]. She states the Said she might benefit fr Home Health upon discharge. She would like me to contact [facility] to giv e them a heads up. I called and spoke to Summer at [facility] , told her patients PCP [...] Pt. resting in bed on arrival, used HOME STAGER x 2 during session. SPL 5/10. Pt. hoping to urinate web administrator to straight cath. Sidelying to sit at [...] TBD) Equipment Recommendations: tub bench;hand held shower head;wrapping machine operator;comfort height toilet ( pt. has all necessary [...] & Review . Outcome: Progressing Pt using HOME STAGER and PO pain pills, c/o numbness on [...] and on a continuous oximeter for her HOME STAGER. She was unable to do her IS because o f the medications. She has the IS at bedside with a goal of 2400. She did not require additi onal respiratory care throughout the evening. p Note - Frandy Teresa, DO - 07/02/2014 2:25 PM PDTDATE: 07/02/2014 SURGEON: Frandy Teresa MD. PLANETARIUM SKY SHOW TECHNICIAN: ZANE Oh PREOPERATIVE DIAGNOSES 1. Spondylolisthesis, [...] x 26 mm Capstone PEEK cage from [employer] was chosen. It was filled with Infus [...] Note Cindy Arndt 58 y.o. female 1955 [id number] Proc. Date 07/02/2014 Preop Dx Spondylolisthesis L5-S1 Postop Dx same Procedure Procedure(s):MIS L5-S1 TRANSFORAMINAL LUMBAR INTERBODY FUSION Anesthesia General Surgeon Frandy Teresa DO Impregnator And Drier ZANE Oh EBL 100 mL Findings Findings consistent with scheduled procedure. No other abnormalities found. Complications none Specimens * No specimens in log * Drains Electronically signed by: Frandy Teresa DO 07/02/2014 14:22 [facility] documented in this en counter Plan of Treatment +--------+---------+ + + + | Date | Type | Specialty | Care Team | Description | +--------+---------+ + + + | 04/24/ | Office | Cardiology | Britt Dora | | | 2019 | Visit | | CAROLINE Mendez [address] | | | | | | [address] | | | | | | [place] [address] | | | | | | [phone] | | | | | | | [...] + | [facility] | [address] | [place], [place] | [phone] | | [facility] | | [address] | | | - LABORATORY | | | | + + + + + | [facility] | [address] | [place], [place] | | | [facility] | | [address], [facility] | | | - LABORATORY [...] [address] | [place] | [phone] | | [facility] | | [address] | | | - LABORATORY | | | | + + + + + | [facility] | [address] | [place] | | | [facility] | | [address], [facility] | | | - LABORATORY [...] + | [facility] | [address] | [place], [place] | [phone] | | [facility] | | [address] | | | - LABORATORY | | | | + + + + + | [facility] | [address] | [place], [place] | | | [facility] | | [address], [facility] | | | - LABORATORY [...] ST. | [address] | [place], [place] | [phone] | | [facility] | | [address] | | | - LABORATORY | | | | + + + + + | [facility] | [address] | [place], [place] | | | [facility] | | [address] | | | - [...] + | [facility] | [address] | [place], [place] | [phone] | | [facility] | | [address] | | | - LABORATORY | | | | + + + + + | [facility] | [address] | [place] | | | [facility] | | [address] | | | - LABORATORY [...] [address] | [place] | [phone] | | [facility] | | [address] | | | - LABORATORY | | | | + + + + + | [facility] | [address] | [place] | | | [facility] | | [address], [facility] | | | - LABORATORY | | | | + + + + + POC Glucose (07/04/2014 8:15 AM PDT) + +-------+ + + + | Component | Value | Ref Range | Performed | Pathologist | | | | | At | Signature | + +-------+ + + + | Glucose, | 126 | 79 - 150 mg/dL | PROVIDEDONTRELLE [...] + | [facility] | [address] | [place], [place] | [phone] | | [facility] | | [address] | | | - LABORATORY | | | | + + + + + | [facility] | [address] | [place], [place] | | | [facility] | | [address] [place] [address] | | | - LABORATORY | | [...] + | [facility] | [address] | [place] | [phone] | | [facility] | | [address] | | | - LABORATORY | | | | + + + + + | [facility] | [address] | [place] | | | [facility] | | [address] | | | - [...] + | [facility] | [address] | [place], [place] | [phone] | | [facility] | | [address] | | | - LABORATORY | | | | + + + + + | [facility] | [address] | [place], [place] | | | [facility] | | [address] [place] [address] | | | - LABORATORY | | [...] | of hardware for posterior fusion from D2jvhbbly S1 with interbody hardware at L5-S1. The [...] + | MISCELLANEOUS LAB | | | [phone] | + +---------+ + + | MISCELANIOUS LAB | | | [phone] | + +---------+ + + POC Glucose [...] + | [facility] | [address] | [place], [place] | [phone] | | [facility] | | [address] | | | - LABORATORY | | | | + + + + + | [facility] | [address] | [place], [place] | | | [facility] | | [address], [facility] | | | - LABORATORY [...] [address] | [place] | [phone] | | [facility] | | [address] | | | - LABORATORY | | | | + + + + + | [facility] | [address] | [place] | | | [facility] | | [address], [facility] | | | - LABORATORY [...] + | [facility] | [address] | [place], [place] | [phone] | | [facility] | | [address] | | | - LABORATORY | | | | + + + + + | [facility] | [address] | [place], [place] | | | [facility] | | [address] | | | - LABORATORY | | | | + + + + + POC Glucose (07/02/2014 5:04 PM PDT) + +-------+ + + + | Component | Value | Ref Range | Performed | Pathologist | | | | | At | Signature | + +-------+ + + + | Glucose, | 124 | 79 - 150 mg/dL | JANE [...] [address] | [place] | [phone] | | [facility] | | [address] | | | - LABORATORY | | | | + + + + + | [facility] | [address] | [place], [place] | | | [facility] | | [address] | | | - [...] + | [facility] | [address] | [place] | [phone] | | [facility] | | [address] | | | - LABORATORY | | | | + + + + + | [facility] | [address] | [place], [place] | | | [facility] | | [address] [place] [address] | | | - LABORATORY | | [...] St | [place] | | | [facility] | | [address] | | | - BLOOD BANK | [...] mLs | | Surgical | | 1:200,000 0.25-1:329709 % | | 14 12:42 | | [...]
--- OUTSIDE RECORDS SUMMARY | ~2020-04-20 | XMS | Encounter Summary ---
Demographics + + + | Address | [address] | | | [place] [address] | + + + | Home Phone [...] [place], [place] | | | | | [address] | | + + + + + Care Team Providers + +------+ + | Care Senior Back End Java Developer Name | Role | Phone | + +------+ + PCP | Unavailable | + +------+ + Encounter Details +--------+ + + + + | Date | Type | Department | Care Team | Description | +--------+ + + + + | 12/27/ | Hospital | [facility] | | | | 1997 - | Encounter | MED CTR GENERIC PSY | | | | | | CONV DEPT [address] | | | | 01/01/ | | [address] [place], | | | | 1997 | | [place] [address] | | | | | | [phone] | | | +--------+ + + + [...] | | | | | [place] [address] | | | | | | [phone] | | | | | | | | +--------+---------+ + + + documented as of this encounter Visit Diagnoses Not on filedocumented in this encounter"
--- OUTSIDE RECORDS SUMMARY | ~2020-04-20 | XMS | Encounter Summary ---
Demographics + + + | Address | [address] | | | [place] [address] | + + + | Home Phone [...] [place] | | | | | [address] | | + + + + + Care Team Providers + +------+ + | Care Textile Cutting Machine Operator Name | Role | [...] | | | [address] [place] | [place] [address] | | | | | [place] [address] | | | | | | [phone] | | | +--------+ + + + [...] [address] | | | | | | [facility] [address] | | | | | | [phone] | | | | | | | [...]
--- OUTSIDE RECORDS SUMMARY | ~2020-04-20 | XMS | Encounter Summary ---
Demographics + + + | Address | [address] | | | [place] [address] | + + + | Home Phone [...] [place] | | | | | [address] | | + + + + + Care Team Providers + +------+ + | Care Dry Kiln Feeder Name | Role | Phone | [...] | SLEEP DISORDER [address] | [address] | | | | | [address] [place] | [place], [place] | | | | | [place] [address] | [address] | | | | | [phone] | | | +--------+ + + + [...] [address] | | | | | | [place] [address] | | | | | | [phone] | | | | | | | | +--------+---------+ + + + documented as of this encounter Visit Diagnoses Not on filedocumented in this encounter"
--- OUTSIDE RECORDS SUMMARY | ~2020-04-20 | XMS | Encounter Summary ---
Demographics + + + | Address | [address] | | | [place] [address] | + + + | Home Phone [...] [place] | | | | | [address] | | + + + + + Care Team Providers + +------+ + | Care Quality Control Auditor Name | Role | Phone | + [...] + + | 08/09/ | Documentati | [facility] | Katharine Moncada, | Other (end of study) | | 2019 | on | CARDIOLOGY [facility] | Technologist | | | | | [address] | | | | | | [place], [place] | | | | | | [address] | | | | | | [phone] | | | +--------+ + + + [...] Technologist - 08/09/2019 11:59 PM PDT Cardiac Heel Sprayer Date of Event Monitor: 08/09/19 Referring Physician: [...] | | | | | [place] [address] | | | | | | [phone] | | | | | | | | +--------+---------+ + + + documented as of this encounter Visit Diagnoses Not on filedocumented in this encounter"
--- OUTSIDE RECORDS SUMMARY | ~2020-04-20 | XMS | Encounter Summary ---
Demographics + + + | Address | [address] | | | [place] [address] | + + + | Home Phone [...] [place], [place] | | | | | [address] | | + + + + + Care Team Providers + +------+ + | Care Vat Cleaner Name | Role | Phone | [...] [place] | | | | | | [address] | | | | | | [phone] | | | +--------+ + + + [...] [address] | | | | | | [place] [address] | | | | | | [phone] | | | | | | | | +--------+---------+ + + + documented as of this encounter Visit Diagnoses Not on filedocumented in this encounter"
--- OUTSIDE RECORDS SUMMARY | ~2020-04-20 | XMS | Encounter Summary ---
Demographics + + + | Address | [address] | | | [place] [address] | + + + | Home Phone [...] [place] | | | | | [address] | | + + + + + Care Team Providers + +------+ + | Care Window Covering Sales Consultant Name | Role | Phone | + +------+ + | Basim Boalnos MD | PCP | | + +------+ [...] [address] | | | | | [address], [place] | [place], [place] | | | | | [address] | [address] | | | | | [phone] | | | +--------+ + + + [...] [address] | | | | | | [facility] [address] | | | | | | [phone] | | | | | | | | +--------+---------+ + + + documented as of this encounter Visit Diagnoses Not on filedocumented in this encounter"
--- OUTSIDE RECORDS SUMMARY | ~2020-04-20 | XMS | Encounter Summary ---
Demographics + + + | Address | [address] | | | [place] [address] | + + + | Home Phone [...] [place] | | | | | [address] | | + + + + + Care Team Providers + +------+ + | Care Grubber Name | Role | Phone | + [...] + + | 08/24/ | Documentati | [facility] | Katharine Moncada, | Other (urgent | | 2019 | on | CARDIOLOGY [place] | Technologist | report) | | | | [address] | | | | | | [place] | | | | | | [address] | | | | | | [phone] | | | +--------+ + + + [...] | | | | | [place] [address] | | | | | | [phone] | | | | | | | | +--------+---------+ + + + documented as of this encounter Visit Diagnoses Not on filedocumented in this encounter"
--- OUTSIDE RECORDS SUMMARY | ~2020-04-20 | XMS | Encounter Summary ---
Demographics + + + | Address | [address] | | | [place] [address] | + + + | Home Phone [...] [place] | | | | | [address] | | + + + + + Care Team Providers + +------+ + | Care Manager Of Development Name | Role | Phone | [...] [place] | | | | | | [address] | | | | | | [phone] | | | +--------+ + + + [...] [address] | | | | | | [place] [address] | | | | | | [phone] | | | | | | | | +--------+---------+ + + + documented as of this encounter Visit Diagnoses Not on filedocumented in this encounter"
--- OUTSIDE RECORDS SUMMARY | ~2020-04-20 | XMS | Encounter Summary ---
Demographics + + + | Address | [address] | | | [place] [address] | + + + | Home Phone [...] [place], [place] | | | | | [address] | | + + + + + Care Team Providers + +------+ + | Care Water Treatment Specialist Name | Role | Phone | + +------+ + PCP | Unavailable | + +------+ + Encounter Details +--------+ + + + + | Date | Type | Department | Care Team | Description | +--------+ + + + + | 07/17/ | Hospital | [facility] | | | | 1997 - | Encounter | MED CTR GENERIC PSY | | | | | | CONV DEPT [address] | | | | 07/25/ | | [address], | | | | 1997 | | [place] [address] | | | | | | [phone] | | | +--------+ + + + [...] | | | | | [place] [address] | | | | | | [phone] | | | | | | | | +--------+---------+ + + + documented as of this encounter Visit Diagnoses Not on filedocumented in this encounter"
--- OUTSIDE RECORDS SUMMARY | ~2020-04-20 | XMS | Encounter Summary ---
Demographics + + + | Address | [address] | | | [place] [address] | + + + | Home Phone [...] [place] | | | | | [address] | | + + + + + Care Team Providers + +------+ + | Care Conservation Policy Analyst Name | Role | Phone | [...] [address] | | | | | | [place], [place] | | | | | | [address] | | | +--------+ + + + [...]
--- OUTSIDE RECORDS SUMMARY | ~2020-04-20 | XMS | Encounter Summary ---
Demographics + + + | Address | [address] | | | [place] [address] | + + + | Home Phone [...] [place] | | | | | [address] | | + + + + + Care Team Providers + +------+ + | Care Import Coordinator Name | Role | Phone | [...] | | | | | | | [address] | | | | | | | Phone: | | | | | | | [phone] | | | | | | | Fax: | | | | | | | [phone] | | +--------+--------+ + + + + Encounter Details +--------+---------+ + + + | Date | Type | Department | Care Team | Description | +--------+---------+ + + + | 02/27/ | Office | [facility] | Baudilio Newman | Neuropathy (Primary | | 2015 | Visit | NEUROLOGY LAURIE | MD Pollo Need updated | Dx); Sleep apnea; | | | | [address] [facility], | address | Stroke (HCC); | | | | [address] [place] | | Thyroid disease | | | | [place] [address] | | | | | | [phone] | | | +--------+---------+ + + + [...] supply of blood, brain tissue quickly dies. [id number] [employer]. [address] [place] [address]. All righ ts reserved. This information is not intended as a substitute for professional medical care. Always follow your healthcare professional's instructions. documented in this encounter Progress Notes Baudilio Newman MD - 02/27/2015 10:31 AM PDTFormatting of this note might be differen t from the original. Baudilio Newman MD [address] [place] [address], [address] [place] [address] Neurology Outpatient New Patient Note Referring Provider: [...] history. Notes from her recent hospitalization at [facility] were reviewed in detail. Ms. Arndt started feeling off in the evening of 02/01. She felt dizzy and laid down to slee p. Upon waking, she felt her right side was numb. She tried to get up to go to the bathroom and realized she was weak as well on the right. She was taken to [facility] where she was diagnosed with a [...] systol ically. She was reevaluated in the [facility] for one such event and her [...] hospitalization . This specimen was characterized at [facility], but the report is not currently available for [facility]. Unfortunately, Ms. Arndt notes that her [...] Laterality: N/A; Surgeon: Frandy castellanos DO; Location: [facility] MAIN OR Current Medications: Outpatient Medications [...] tablet Take 15 mg by mouth nightly. [place]-3 Fatty Acids (FISH OIL CONCENTRATE) 1000 MG [...] BMI 46.04 kg /m2 Neck Circumference: 14" Ilion Sleepiness Scale: 2 General: well developed and [...] Romberg test negative Radiographic Review: CTA from [facility] reviewed on i[facility]. No significant stenoses seen [...] No results found for this basename: hba1c, ywc2zyr, ldl, ldldirect, ldlext, dldlex Lab Results Component [...] CANTU | | | | | | [place] [address] | | | | | | [phone] | | | | | | | [...]
--- OUTSIDE RECORDS SUMMARY | ~2020-04-20 | XMS | Encounter Summary ---
Demographics + + + | Address | [address] | | | [place] [address] | + + + | Home Phone [...] [place] | | | | | [address] | | + + + + + Care Team Providers + +------+ + | Care Driver License Technician Name | Role | Phone | [...] + + | 08/21/ | Documentati | [facility] | Katharine Moncada, | Other (urgent | | 2019 | on | CARDIOLOGY [place] | Technologist | report) | | | | [address] | | | | | | [place] | | | | | | [address] | | | | | | [phone] | | | +--------+ + + + [...] | | | | | [place] [address] | | | | | | [phone] | | | | | | | | +--------+---------+ + + + documented as of this encounter Visit Diagnoses Not on filedocumented in this encounter"
--- OUTSIDE RECORDS SUMMARY | ~2020-04-20 | XMS | Encounter Summary ---
Demographics + + + | Address | [address] | | | [place] [address] | + + + | Home Phone [...] [place], [place] | | | | | [address] | | + + + + + Care Team Providers + +------+ + | Care Technical Sales Representative Name | Role | Phone | + +------+ + PCP | Unavailable | + +------+ + Encounter Details +--------+ + + + + | Date | Type | Department | Care Team | Description | +--------+ + + + + | 06/30/ | Hospital | [facility] | | | | 1999 - | Encounter | MED CTR GENERIC PSY | | | | | | CONV DEPT [address] | | | | 07/05/ | | [place], | | | | 1999 | | [place] [address] | | | | | | [phone] | | | +--------+ + + + [...] | | | | | [place] [address] | | | | | | [phone] | | | | | | | | +--------+---------+ + + + documented as of this encounter Visit Diagnoses Not on filedocumented in this encounter"
--- OUTSIDE RECORDS SUMMARY | ~2020-04-20 | XMS | Encounter Summary ---
Demographics + + + | Address | [address] | | | [place] [address] | + + + | Home Phone [...] [place] | | | | | [address] | | + + + + + Care Team Providers + +------+ + | Care Java Web Architect Name | Role | Phone | [...] + | 02/21/ | Refill | [facility] | Deon Gonzales | Medication Refill | | 2012 | | SLEEP DISORDER [address] | MD Laureano [address] | | | | | [address] [place] | [address] | | | | | [place] [address] | [place] [address] | | | | | [phone] | [phone] | | | | | | | [...] - 02/22/2013 9:32 AM [facility] documented in this encount er Plan [...] CANTU | | | | | | [place] [address] | | | | | | [phone] | | | | | | | | +--------+---------+ + + + documented as of this encounter Visit Diagnoses + + | Diagnosis | + + | Obstructive sleep apnea (adult) (pediatric) - Primary | + + documented in this encounter"
--- OUTSIDE RECORDS SUMMARY | ~2020-04-20 | XMS | Encounter Summary ---
Demographics + + + | Address | [address] | | | [place] [address] | + + + | Home Phone | | + + + | Preferred Language | Unknown | + + + | Marital Status | Single | + + + | Zoroastrian Affiliation | Unknown | + + + | Race | White | + + + | Ethnic Group | Not or | + + + Author + + + | Author | [facility] | + + + | Organization | [facility] | + + + | Address | Unknown | + + + | Phone | Unavailable | + + + Support + + + + + | Name | Relationship | Address | Phone | + + + + + | Kelsy Bautista | ECON | [address] | | | | | [place] | | | | | [address] | | + + + + + Care Team Providers + +------+ + | Care Practicing Md Anesthesiologist Name | Role | Phone | + [...] [address] | | | | | | [place], [place] | | | | | | [address] | | | +--------+ + + + [...]
--- OUTSIDE RECORDS SUMMARY | ~2020-04-20 | XMS | Encounter Summary ---
Demographics + + + | Address | [address] | | | [place] [address] | + + + | Home Phone [...] [place] | | | | | [address] | | + + + + + Care Team Providers + +------+ + | Care Propellant Charge Loader Name | Role | Phone | [...] + + | 09/10/ | Documentati | [facility] | Katharine Moncada, | Other (urgent | | 2019 | on | CARDIOLOGY [place] | Technologist | report) | | | | [address] | | | | | | [place] | | | | | | [address] | | | | | | [phone] | | | +--------+ + + + [...] | | | | | [place] [address] | | | | | | [phone] | | | | | | | | +--------+---------+ + + + documented as of this encounter Visit Diagnoses Not on filedocumented in this encounter"
--- OUTSIDE RECORDS SUMMARY | ~2020-04-20 | XMS | Encounter Summary ---
Demographics + + + | Address | [address] | | | [place] [address] | + + + | Home Phone [...] [place] | | | | | [address] | | + + + + + Care Team Providers + +------+ + | Care Ultrasonic Cleaner Name | Role | Phone | [...] + + | 10/23/ | Telephone | [facility] | Ashley Chávez | Other (Patient | | 2019 | | [facility]Y [place] | [place], Insurance Coordinator | called about | | | | [address] | | metoprolol. ) | | | | [place], [place] | | | | | | [address] | | | | | | [phone] | | | +--------+ + + + [...] Miscellaneous Notes Telephone Encounter - Ashley Chávez, Insurance Coordinator - [facility]/23/2019 10:49 [facility] [...] her back when I have her recommendations. JPolloW:LAPIDARIST-AAMA. [facility] umented in this encounter Plan [...] CANTU | | | | | | [place] [address] | | | | | | [phone] | | | | | | | | +--------+---------+ + + + documented as of this encounter Visit Diagnoses Not on filedocumented in this encounter"
--- OUTSIDE RECORDS SUMMARY | ~2020-04-20 | XMS | Encounter Summary ---
Demographics + + + | Address | [address] | | | [place] [address] | + + + | Home Phone [...] [place] | | | | | [address] | | + + + + + Care Team Providers + +------+ + | Care Car Ferry Master Name | Role | Phone | + [...] + | 06/12/ | Office | [facility] | Chris Nicole, | Spondylisthesis | | 2013 | Visit | NEUROSURGERY [address] | PA-C [address] | (Primary Dx); | | | | [address] | [place], [place] | Radiculopathy of | | | | [place], [place] | [address] | leg; Lumbar spine | | | | [address] | | instability; Lumbar | | | | [phone] | | spondylosis; | | | | [...] f rom the original. ZANE Castillo [address] [facility] [place], [place] [address] FAX: NEUROSURGERY HISTORY AND PHYSICAL EXAMINATION CHIEF [...] Take 15 mg by mouth nightl y. [place]-3 Fatty Acids (FISH OIL CONCENTRATE) 1000 MG [...] has no apparent deficits with short or watermaster memory. CRANIAL NERVES: II: Acuity is intact. [...] Intrinsics 5 5 Ulnar Intrinsics 5 5 Outside Physical Damage Appraiser Strength 5 5 Hip Flexion 5 4* [...] CANTU | | | | | | [place] [address] | | | | | | [phone] | | | | | | | [...]
--- OUTSIDE RECORDS SUMMARY | ~2020-04-20 | XMS | Encounter Summary ---
Demographics + + + | Address | [address] | | | [place] [address] | + + + | Home Phone [...] [place] | | | | | [address] | | + + + + + Care Team Providers + +------+ + | Care Flatwork Finisher Name | Role | Phone | [...] + | 07/08/ | Telephone | [facility] | Frandy Teresa, | Other (post op call | | 2013 | | NEUROSURGERY [address] | DO [address] | ) | | | | [address] [facility] [address] | [address] [place], [place] | | | | | [place], [place] | [id number] | | | | | [address] | | | | | | [phone] | | | +--------+ + + + [...] Aragon Cert MA - 07/08/2014 11:04 AM [facility] SHAYNE ARAGON documented in this [...] | | | | | [place] [address] | | | | | | [phone] | | | | | | | | +--------+---------+ + + + documented as of this encounter Visit Diagnoses Not on filedocumented in this encounter"
--- OUTSIDE RECORDS SUMMARY | ~2020-04-20 | XMS | Encounter Summary ---
Demographics + + + | Address | [address] | | | [place] [address] | + + + | Home Phone [...] + + + | Author | [facility] | + + + | Organization | [facility] | + + + | Address | Unknown | + + + | Phone | Unavailable | + + + Support + + + + + | Name | Relationship | Address | Phone | + + + + + | Kelsy Bautista | ECON | [address] | | | | | [place] | | | | | [address] | | + + + + + Care Team Providers + +------+ + | Care Judge Name | Role | Phone | [...] [id number] | | | | | | [place], [place] | | | | | | [address] | | | | | | [phone] | | | +--------+ + + + [...] + + + + | [facility] | [address] | [place] [address] | | | PATHOLOGY | [address] [...] Re | | | | | | [address] | | | | + + + + + + + + | Specimen | + + | | + + + + + + + | Performing | Address | City/State/Zipcode | Phone Number | | Organization | | | | + + + + + | [facility] | [address] | [place] [address] | | | PATHOLOGY | [address] [...] Re | | | | | | [address] | | | | + + + + + + + + | Specimen | + + | | + + + + + + + | Performing | Address | City/State/Zipcode | Phone Number | | Organization | | | | + + + + + | [facility] | [address] | [place] [address] | | | PATHOLOGY | [address] [...] Re | | | | | | 9347[address] | | | | + + + + + + + + | Specimen | + + | | + + + + + + + | Performing | Address | City/State/Zipcode | Phone Number | | Organization | | | | + + + + + | [facility] | [address] | [place] [address] | | | PATHOLOGY | [address] [...] Re | | | | | | [address] | | | | + + + + + + + + | Specimen | + + | | + + + + + + + | Performing | Address | City/State/Zipcode | Phone Number | | Organization | | | | + + + + + | [facility] | [address] | [place] [address] | | | PATHOLOGY | [address] | | | + + + + + documented in this encounter Visit Diagnoses Not on filedocumented in this encounter"
--- OUTSIDE RECORDS SUMMARY | ~2020-04-20 | XMS | Encounter Summary ---
Demographics + + + | Address | [address] | | | [place] [address] | + + + | Home Phone [...] [place] | | | | | [address] | | + + + + + Care Team Providers + +------+ + | Care Relief Worker Name | Role | Phone | [...] + + | 11/25/ | Telephone | [facility] | Frandy Teresa, | Medication Refill | | 2014 | | NEUROSURGERY [address] | DO [address] | Assistance | | | | [address] [facility] [address] | [address] [place], [place] | | | | | [place], [place] | [id number] | | | | | [address] | | | | | | [phone] | | | +--------+ + + + [...] get a refill of her pain medication [place] 10-325 mg. I l et her know we are beyond the 90 days after her surgery and refills need to come from her [facility] provider. She requests us to update [...] CANTU | | | | | | [place] [address] | | | | | | [phone] | | | | | | | | +--------+---------+ + + + documented as of this encounter Visit Diagnoses Not on filedocumented in this encounter"
--- OUTSIDE RECORDS SUMMARY | ~2020-04-20 | XMS | Encounter Summary ---
Demographics + + + | Address | [address] | | | [place] [address] | + + + | Home Phone [...] [place] | | | | | [address] | | + + + + + [...] + + | 09/27/ | Hospital | [facility] | Frandy Teresa, | Lumbar spondylosis; | | 2013 | Encounter | MED CTR XRAY [address] | DO [address] | S/P lumbar fusion | | | | [place] | [address] [place], [place] | | | | | [place] [address] | [address] | | | | | [phone] | | | +--------+ + + + [...] + + + +---------+ + + | [place]-3 Fatty | Take 1,000 mg by | [...] CANTU | | | | | | [place] [address] | | | | | | [phone] | | | | | | | [...] + | MISCELLANEOUS LAB | | | [phone] | + +---------+ + + | MISCELANIOUS LAB | | | [phone] | + +---------+ + + documented in this encounter Visit Diagnoses + + | Diagnosis | + + | Lumbar spondylosis Lumbosacral spondylosis without myelopathy | + + | S/P lumbar fusion Arthrodesis status | + + documented in this encounter"
--- OUTSIDE RECORDS SUMMARY | ~2020-04-20 | XMS | Encounter Summary ---
Demographics + + + | Address | [address] | | | [place] [address] | + + + | Home Phone [...] [place] | | | | | [address] | | + + + + + Care Team Providers + +------+ + | Care Forest Ecologist Name | Role | Phone | + [...] Closed | | Radiology | Diagnoses | [facility] [place], | | | | | | Thoracic or | Natalee L, | | | | | | lumbosacral | [employer] [address] | | | | | | neuritis or | [address] | | | | | | | [address] | | | | | | radiculitis, | [place], | | | | | | unspecified | [place] [address] | | | | | | | Phone: | | | | | | Degeneration | [phone] | | | | | | of lumbar | Fax: | | | | | | or | [phone] | | | | | | lumbosacral [...] 03/11/ | Hospital | [facility] | Natalee Andersen | Thoracic or | | 2013 | Encounter | MED CTR MRI [address] | L, [employer] [address] | lumbosacral neuritis | | | | [place], | [address] | or radiculitis, | | | | [place] [address] | [place] [address] | unspecified; | | | | [phone] | [phone] | Degeneration of | | | | [...] + + + +---------+ + + | [place]-3 Fatty | Take 1,000 mg by [...] encounter Miscellaneous Notes Miscellaneous - [facility] - 03/20/2014 12:00 AM PDT documented [...] CANTU | | | | | | [place] [address] | | | | | | [phone] | | | | | | | [...] problem solving. Dictated and Signed by: Tyrese Nath | | MD Suzie Electronically signed: 03/11/2014 10:32 AM | | + + + + + | Procedure Note | + + | Manohar Martinez Results In - 03/11/2014 10:36 AM PDT [...] + | MISCELLANEOUS LAB | | | [phone] | + +---------+ + + | MISCELANIOUS LAB | | | [phone] | + +---------+ + + documented in this encounter Visit Diagnoses + + | Diagnosis | + + | Thoracic or lumbosacral neuritis or radiculitis, unspecified | + + | Degeneration of lumbar or lumbosacral intervertebral disc | + + documented in this encounter"
--- OUTSIDE RECORDS SUMMARY | ~2020-04-20 | XMS | Encounter Summary ---
Demographics + + + | Address | [address] | | | [place] [address] | + + + | Home Phone [...] [place], [place] | | | | | [address] | | + + + + + Care Team Providers + +------+ + | Care Syruper Name | Role | Phone | + +------+ + PCP | Unavailable | + +------+ + Encounter Details +--------+ + + + + | Date | Type | Department | Care Team | Description | +--------+ + + + + | 02/02/ | Hospital | [facility] | | | | 1997 | Encounter | MED CTR EMERGENCY | | | | | | [address] | | | | | | [place] | | | | | | [address] | | | | | | [phone] | | | +--------+ + + + [...] | | | | | [place] [address] | | | | | | [phone] | | | | | | | | +--------+---------+ + + + documented as of this encounter Visit Diagnoses Not on filedocumented in this encounter"
--- OUTSIDE RECORDS SUMMARY | ~2020-04-20 | XMS | Encounter Summary ---
Demographics + + + | Address | [address] | | | [place] [address] | + + + | Home Phone [...] [place] | | | | | [address] | | + + + + + Care Team Providers + +------+ + | Care Journey Lineman Name | Role | Phone | + +------+ + | Adriano Patrick MD | PCP | | + +------+ + Encounter Details +--------+ + + + + | Date | Type | Department | Care Team | Description | +--------+ + + + + | 06/10/ | Abstract | [facility] [place] [facility] | Thierry Fry | | | 2014 | | MEDICINE [facility] RICH | MD Lisa [address] | | | | [address] [place], | [place], [place] | | | | | [place] [address] | [address] | | | | | [phone] | | | +--------+ + + + [...] CANTU | | | | | | [place] [address] | | | | | | [phone] | | | | | | | [...] +-------+ + + + External Lab: Pina INR (02/17/2015) + +-------+ + + + [...]
--- OUTSIDE RECORDS SUMMARY | ~2020-04-20 | XMS | Encounter Summary ---
Demographics + + + | Address | [address] | | | [place] [address] | + + + | Home Phone [...] [place] | | | | | [address] | | + + + + + Care Team Providers + +------+ + | Care Marking Devices Assembler Name | Role | Phone | [...] + | 07/19/ | Telephone | [facility] | Frandy Teresa, | Appointment | | 2013 | | NEUROSURGERY [address] | DO [address] | | | | | [address] | [address] [place], [place] | | | | | [place], [place] | [id number] | | | | | [address] | | | | | | [phone] | | | +--------+ + + + [...] Spivey - 07/22/2014 8:09 AM Nakia from [facility] called back this morning to isamar mcarthure that she spoke with the patient again regarding this appointment and the patient would be ok with rescheduling to a time the following week. She just didn't want to make the trip down here right after she got back home to [place]. Janes can be reached at [phone] ectronically signed by Tiffani Humphrey at 07/22/2014 8:11 AM PDTTelephone Encounter - Lashawn Metzger - 07/19/2014 12:56 PM PDTSuarlen from [facility] called to confirm Cindy' s appointment for [...] CANTU | | | | | | [place] [address] | | | | | | [phone] | | | | | | | | +--------+---------+ + + + documented as of this encounter Visit Diagnoses Not on filedocumented in this encounter"
--- OUTSIDE RECORDS SUMMARY | ~2020-04-20 | XMS | Encounter Summary ---
Demographics + + + | Address | [address] | | | [place] [address] | + + + | Home Phone [...] [place] | | | | | [address] | | + + + + + Care Team Providers + +------+ + | Care Electrical Maintenance Mechanic Name | Role | Phone | [...] [address] | | | | | [address] [place], [place] | [place], [place] | | | | | [address] | [address] | | | | | [phone] | | | +--------+ + + + [...] CANTU | | | | | | [place] [address] | | | | | | [phone] | | | | | | | | +--------+---------+ + + + documented as of this encounter Visit Diagnoses Not on filedocumented in this encounter"
--- OUTSIDE RECORDS SUMMARY | ~2020-04-20 | XMS | Encounter Summary ---
Demographics + + + | Address | [address] | | | [place] [address] | + + + | Home Phone [...] [place], [place] | | | | | [address] | | + + + + + Care Team Providers + +------+ + | Care Rocket Assembly Operator Name | Role | Phone | + +------+ + PCP | Unavailable | + +------+ + Encounter Details +--------+ + + + + | Date | Type | Department | Care Team | Description | +--------+ + + + + | 06/23/ | Hospital | [facility] | | | | 2000 | Encounter | MED CTR GENERIC OP | | | | | | CONV DEPT [address] | | | | | | [place], | | | | | | [place] [address] | | | | | | [phone] | | | +--------+ + + + [...] CANTU | | | | | | [place] [address] | | | | | | [phone] | | | | | | | | +--------+---------+ + + + documented as of this encounter Visit Diagnoses Not on filedocumented in this encounter"
--- OUTSIDE RECORDS SUMMARY | ~2020-04-20 | XMS | Encounter Summary ---
Demographics + + + | Address | [address] | | | [place] [address] | + + + | Home Phone [...] Organization | [facility] | | | and [place] | + + + | Address | Unknown | + + + | Phone | Unavailable | + + + Support + + + + + | Name | Relationship | Address | Phone | + + + + + | Araceli Sibley | ECON | [place] | | | | | [address] | | + + + + + Care Team Providers + +------+ + | Care Preschool Education Director Name | Role | Phone | + +------+ + | Basim Bolanos MD | PCP | | + +------+ + Encounter Details +--------+ + + + + | Date | Type | Department | Care Team | Description | +--------+ + + + + | 02/22/ | Abstract | [facility] [place] | [facility], | | | 2012 | | GASTROENTEROLOGY | FORTUNATO Thomas [address] | | | | | [address] | [address] | | | | | [address] [place], [place] | [place], [place] | | | | | [address] | [address] | | | | | [phone] | | | +--------+ + + + [...] CANTU | | | | | | [place] [address] | | | | | | [phone] | | | | | | | | +--------+---------+ + + + documented as of this encounter Visit Diagnoses Not on filedocumented in this encounter"
--- OUTSIDE RECORDS SUMMARY | ~2020-04-20 | XMS | Encounter Summary ---
Demographics + + + | Address | [address] | | | [place] [address] | + + + | Home Phone [...] [place] | | | | | [address] | | + + + + + Care Team Providers + +------+ + | Care Senior Product Integrity Engineer Name | Role | Phone | [...] + + | 08/21/ | Documentati | [facility] | Katharine Moncada, | Other (urgent | | 2019 | on | CARDIOLOGY [place] | Technologist | report) | | | | [address] | | | | | | [place] | | | | | | [address] | | | | | | [phone] | | | +--------+ + + + [...] | | | | | [place] [address] | | | | | | [phone] | | | | | | | | +--------+---------+ + + + documented as of this encounter Visit Diagnoses Not on filedocumented in this encounter"
--- OUTSIDE RECORDS SUMMARY | ~2020-04-20 | XMS | Encounter Summary ---
Demographics + + + | Address | [address] | | | [place] [address] | + + + | Home Phone [...] [place] | | | | | [address] | | + + + + + Care Team Providers + +------+ + | Care Automotive Production Worker Name | Role | Phone | [...] + + | 07/10/ | Telephone | [facility] | Frandy Teresa, | Imaging Only (1 year | | 2014 | | NEUR[address]UR[address]ERY [address] | DO [address] | x-ray ) | | | | [address] | [address] [place], [place] | | | | | [place], [place] | [address] | | | | | [address] | | | | | | [phone] | | | +--------+ + + + [...] [address] | | | | | | [place] [address] | | | | | | [phone] | | | | | | | | +--------+---------+ + + + documented as of this encounter Visit Diagnoses Not on filedocumented in this encounter"
--- OUTSIDE RECORDS SUMMARY | ~2020-04-20 | XMS | Encounter Summary ---
Demographics + + + | Address | [address] | | | [place] [address] | + + + | Home Phone [...] [place] | | | | | [address] | | + + + + + Care Team Providers + +------+ + | Care Ski Patrol Director Name | Role | Phone | [...] + | 12/03/ | Refill | [facility] | Frandy Teresa, | Medication Refill | | 2014 | | [address] | DO [address] | | | | | [address] [facility] [address] | [address] [place], [place] | | | | | [place], [place] | [id number] | | | | | [address] | | | | | | [phone] | | | +--------+--------+ + + + [...] office and the number we have in [facility] is not correct. Art Andersen NP Chart notes faxed to [phone] along with medication list. Sent request to update contac t information in [facility] To Kathy @ [facility] Support Team documented in this [...] [address] | | | | | | [place] [address] | | | | | | [phone] | | | | | | | | +--------+---------+ + + + documented as of this encounter Visit Diagnoses Not on filedocumented in this encounter"
--- OUTSIDE RECORDS SUMMARY | ~2020-04-20 | XMS | Encounter Summary ---
Demographics + + + | Address | [address] | | | [place] [address] | + + + | Home Phone [...] [place], [place] | | | | | [address] | | + + + + + Care Team Providers + +------+ + | Care Protective Signal Operations Supervisor Name | Role | Phone | [...] [address] | | | | | | [place], [place] | | | | | | [address] | | | | | | [phone] | | | +--------+ + + + [...] | | | | | [place] [address] | | | | | | [phone] | | | | | | | | +--------+---------+ + + + documented as of this encounter Visit Diagnoses Not on filedocumented in this encounter
--- OUTSIDE RECORDS SUMMARY | ~2020-04-20 | XMS | Encounter Summary ---
Demographics + + + | Address | [address] | | | [place] [address] | + + + | Home Phone [...] [place], [place] | | | | | [address] | | + + + + + Care Team Providers + +------+ + | Care Health Sciences Department Chair Name | Role | Phone | + +------+ + PCP | Unavailable | + +------+ + Encounter Details +--------+ + + + + | Date | Type | Department | Care Team | Description | +--------+ + + + + | 06/07/ | Hospital | [facility] | | | | 1991 - | Encounter | MED CTR GENERIC OP | | | | | | CONV DEPT [address] | | | | 10/07/ | | [place], | | | | 1991 | | [place] [address] | | | | | | [phone] | | | +--------+ + + + [...] | | | | | [place] [address] | | | | | | [phone] | | | | | | | | +--------+---------+ + + + documented as of this encounter Visit Diagnoses Not on filedocumented in this encounter"
--- OUTSIDE RECORDS SUMMARY | ~2020-04-20 | XMS | Encounter Summary ---
Demographics + + + | Address | [address] | | | [place] [address] | + + + | Home Phone [...] [place] | | | | | [address] | | + + + + + Care Team Providers + +------+ + | Care Health Inspector Food Name | Role | Phone | + [...] [address] | [address] [place], [place] | | | | | [place], [place] | [address] | | | | | [address] | | | | | | [phone] | | | +--------+ + + + [...] | 2020 | Visit | | Vanessa, CURATOR OF COLLECTIONS [address] | | | | | | [address] | | | | | | [place] [address] | | | | | | [phone] | | | | | | | [...] + | MISCELLANEOUS LAB | | | [phone] | + +---------+ + + | MISCELANIOUS LAB | | | [phone] | + +---------+ + + documented in this encounter Visit Diagnoses + + | Diagnosis | + + | Back pain - Primary Backache, unspecified | + + documented in this encounter"
--- OUTSIDE RECORDS SUMMARY | ~2020-04-20 | XMS | Encounter Summary ---
Demographics + + + | Address | [address] | | | [place] [address] | + + + | Home Phone [...] [place] | | | | | [address] | | + + + + + Care Team Providers + +------+ + | Care Marketing Co Op Name | Role | Phone | + [...] + + | 10/23/ | Telephone | [facility] | Ashley Chávez | Other (Patient | | 2019 | | [facility] [place] | Poll[place], Medical Sales Associate | called about | | | | [address] | | metoprolol. ) | | | | [place], [place] | | | | | | [address] | | | | | | [phone] | | | +--------+ + + + [...] Miscellaneous Notes Telephone Encounter - Ashley Chávez, Medical Sales Associate - [facility]23/2019 10:49 [facility] is [facility] [...] her back when I have her recommendations. JPolloW:MANAGER MULTICULTURAL-AAMA. [facility] umented in this encounter Plan [...] [address] | | | | | | [place] [address] | | | | | | [phone] | | | | | | | | +--------+---------+ + + + documented as of this encounter Visit Diagnoses Not on filedocumented in this encounter"
--- OUTSIDE RECORDS SUMMARY | ~2020-04-20 | XMS | Encounter Summary ---
Demographics + + + | Address | [address] | | | [place] [address] | + + + | Home Phone [...] [place] | | | | | [address] | | + + + + + Care Team Providers + +------+ + | Care Client Care Representative Name | Role | Phone | [...] | Services | ogy | Epigastric | [facility], | Tyrese Shelley MD | | | Required | | abdominal | [place], | [address], | | | | | pain GERD | [address] | [address] | | | | | (gastroesoph | [address] | [place], | | | | | ageal reflux | [address] | [place] [address] | | | | | disease) | [place], | Phone: | | | | | Fatty liver | [place] [address] | [phone] | | | | | DM | Phone: | Fax: | | | | | (diabetes | [phone] | [phone] | | | | | mellitus) | Fax: | | | | | | (HCC) | [phone] | | +--------+ + + + + + Reason for Visit + + + | Reason | Comments | + + + | Gastroesophageal | epigastric pain | | Reflux | | + + + Encounter Details +--------+---------+ + + + | Date | Type | Department | Care Team | Description | +--------+---------+ + + + | 03/06/ | Office | [facility] | [facility], | Epigastric abdominal | | 2012 | Visit | GASTROENTEROLOGY | FORT[address]ATO [address] | pain (Primary Dx); | | | | [address] | [address] | GERD | | | | [address] [place], [place] | [place] | (gastroesophageal | | | | [address] | [address] | reflux disease); | | | | [phone] | | Fatty liver; DM | | [...] by Dr. Saravanan Tsai, in [facility]. Colonoscopy was done 05/[address] Hamlin in [facility]. Allergies Allergen Reactions Demerol Duloxetine Erythromycin Fluoxetine [...] encounter Miscellaneous Notes Miscellaneous - [facility] - 03/06/2013 12:00 AM PDT iscellaneous - [facility] - 03/06/2013 12:00 AM PDTEle ctronically signed by Mariah Schulte at 04/09/2013 9:48 AM PDTMiscellaneous - [facility] - 03/06/2013 12:00 AM PDT [...] | | | | | [place] [address] | | | | | | [phone] | | | | | | | [...]
--- OUTSIDE RECORDS SUMMARY | ~2020-04-20 | XMS | Encounter Summary ---
Demographics + + + | Address | [address] | | | [place] [address] | + + + | Home Phone [...] [place] | | | | | [address] | | + + + + + Care Team Providers + +------+ + | Care Credentialing Assistant Name | Role | Phone | [...] + | 06/26/ | Telephone | [facility] | Frandy Teresa, | Other | | 2013 | | NEUROSUR[address] | DO [address] | | | | | [address] | [address] [place], [place] | | | | | [place], [place] | [id number] | | | | | [address] | | | | | | [phone] | | | +--------+ + + + [...] [address] | | | | | | [place] [address] | | | | | | [phone] | | | | | | | | +--------+---------+ + + + documented as of this encounter Visit Diagnoses Not on filedocumented in this encounter"
--- OUTSIDE RECORDS SUMMARY | ~2020-04-20 | XMS | Encounter Summary ---
Demographics + + + | Address | [address] | | | [place] [address] | + + + | Home Phone [...] [place], [place] | | | | | [address] | | + + + + + Care Team Providers + +------+ + | Care Packing And Final Assembly Supervisor Name | Role | Phone | + +------+ + PCP | Unavailable | + +------+ + Encounter Details +--------+ + + + + | Date | Type | Department | Care Team | Description | +--------+ + + + + | 01/26/ | Hospital | [facility] | [place], | | | 2011 | Encounter | MED CTR XRAY [address] | MD [address] | | | | | [place] | [place] | | | | | [place] [address] | [address] | | | | | [phone] | | | +--------+ + + + [...] [address] | | | | | | [place] [address] | | | | | | [phone] | | | | | | | [...] Performed At | + + + | [facility] Diagnostic Imaging Department | [facility] | | [address] [facility] | [facility] | | BILATERAL KNEES, THREE VIEWS: | [...] Transcribed | | | Date/Time: 01/27/2012 17:18 Granulator Machine Operator: | | | <Electronically Signed by Willie Perry MD> 01/27/12 2254 | | + + + + + | Procedure Note | + + | Juan, Rad Conversion - 11/30/2013 5:03 PM [facility] | | Diagnostic Imaging Department [address] | | BILATERAL KNEES, THREE VIEWS: 01/27/2012 [...] Signed by Willie Perry MD> | | 01/27/12 8142 | | | |IMPRESSION: | |1. LATERALIZED [...] 17:12 | |Transcribed Date/Time: 01/27/2012 17:18 | |Granulator Machine Operator: | |<Electronically Signed by Willie Perry MD> 01/27/12 2254 | + + + +---------+ + + [...]
--- OUTSIDE RECORDS SUMMARY | ~2020-04-20 | XMS | Encounter Summary ---
Demographics + + + | Address | [address] | | | [place] [address] | + + + | Home Phone [...] [place] | | | | | [address] | | + + + + + Care Team Providers + +------+ + | Care Evaluation Advisor Name | Role | Phone | [...] | | | | | pain, | [place], [place] | | | | | | bilateral | [address] | | | | | | Degenerative | Phone: | | | | | | disc | [phone] | | | | | | disease, | Fax: | | | | | | lumbar | [phone] | | | | | | Spinal [...] [address] | [address] [place], [place] | (Primary Dx); Knee | | | | [place] | [address] | pain, bilateral; | | | | [address] | | DEGENERATIVE DISC | | | | [phone] | | DISEASE, LUMBAR | | | [...] | | | | | [place] [address] | | | | | | [phone] | | | | | | | [...]
--- OUTSIDE RECORDS SUMMARY | ~2020-04-20 | XMS | Encounter Summary ---
Demographics + + + | Address | [address] | | | [place] [address] | + + + | Home Phone [...] [place] | | | | | [address] | | + + + + + Care Team Providers + +------+ + | Care Slubber Operator Name | Role | Phone | [...] | | | | | | [address] [place], [place] | | | | | | [address] | | | | | | [phone] | | | +--------+ + + + [...] | | | | | [place] [address] | | | | | | [phone] | | | | | | | | +--------+---------+ + + + documented as of this encounter Visit Diagnoses Not on filedocumented in this encounter"
--- OUTSIDE RECORDS SUMMARY | ~2020-04-20 | XMS | Encounter Summary ---
Demographics + + + | Address | [address] | | | [place] [address] | + + + | Home Phone [...] [place] | | | | | [address] | | + + + + + Care Team Providers + +------+ + | Care Bankruptcy Attorney Name | Role | Phone | [...] | | | spondylolist | | [address] | | | | | hesis | | [place], | | | | | Spinal | | [place] [address] | | | | | stenosis, | | Phone: | | | | | lumbar | | [phone] | | | | | region, | | Fax: | | | | | without | | [phone] | | | | | neurogenic | [...] | | | | | | | [place] | | | | | | [...] | | | | | | [place] | | | | | | | [...] | | | | | | [place]G [place] | | | | | | | [...] + + | 07/02/ | Hospital | [facility] | Frandy Teresa, | Degenerative disc | | 2013 - | Encounter | [facility] | DO [address] | disease, lumbar | | | | [address] | [address] [address] | (Primary Dx); | | 07/05/ | | [place] [address] | [phone] | Diabetes mellitus | | 2013 | | [phone] | | ([facility]IN [facility]); Disturbance | | | | | | [...] be different fro m the original. [facility] DISCHARGE SUMMARY PATIENT NAME: [...] for discharge to SNF. DISPOSITION: SNF ([facility]) DISCHARGE MEDICATIONS Medications prior to admission [...] Take 15 mg by mouth nightl y. Bejou-3 Fatty Acids (FISH OIL CONCENTRATE) 1000 MG [...] + + + +---------+ + + | Bejou-3 Fatty | Take 1,000 mg by | [...] Lynn PA-C - 07/04/2014 7:43 AM PDT [facility] PROGRESS NOTE Pt. Name/Age/: Cindy Arndt 58 y.o. 1955 Med. Record Number: [id number] Date of admission: 07/02/2014 Subjective: The patient [...] medications. D/C plan: Home tomorrow with [facility]. D/c mari drain and riley cath today. D/c network programmer. Patient Active Problem List Diagnosis LUMBAR DISC [...] signed by: Chris Nicole, 07/04/2014 7:45 [facility] Chris Lynn PA-C - 07/03/2014 7:13 AM PDT . [facility] PROGRESS NOTE Pt. Name/Age/: Cindy Arndt 58 y.o. 1955 Med. Record Number: [id number] Date of admission: 07/02/2014 Subjective: The patient [...] Electronically signed by: Chris Nicole, 07/03/2014 7:13 [facility] on Smith, KRIS - 07/03/2014 6:50 AM [...] signed by: Frandy Teresa DO, 07/02/2014 11:15 [facility]ron[facility] signed by Frandy Teresa DO at 06/2014 11:15 AM PDTFrandy Teresa DO - 07/02/2014 11:[id number] [facility], [address] [place], [place] [id number] FAX: NEUROSURGERY HISTORY AND PHYSICAL EXAMINATION CHIEF [...] Take 15 mg by mouth earnestine eldridge. Bejou-3 Fatty Acids (FISH OIL CONCENTRATE) 1000 MG [...] apparent deficits with short or long term acute care registered nurse memory. CRANIAL NERVES: II: Acuity is intact. [...] Intrinsics 5 5 Ulnar Intrinsics 5 5 Interactive Digital Media Specialist Strength 5 5 Hip Flexion 5 [...] documented in this en counter Procedure Notes [facility] - 07/12/2014 12:00 AM PDT 14 1:45 [facility] - 07/04/2014 12:00 AM PDT [facility] - 07/02/2014 12:00 AM PDT documented in this encounter Miscellaneous Notes Plan of Care - [facility] - 07/12/2014 12:00 AM PDT iscellaneous - [facility] - 07/12/2014 12:00 AM PDTElec tronically signed by Mariah Schulte at 07/12/2014 1:45 PM PDTMiscellaneous - [facility] - 07/12/2014 12:00 AM PDT i scellaneous - [facility] - 07/12/2014 12:00 AM PDT lan [...] and I will be going to a penitentiary as I have 16 steps to my [...] TBD) Equipment Recommendations: tub bench;hand held shower head;replacer;comfort height toilet ( pt. has all necessary [...] LIVING FACILITY TRANSFER ORDERS Patient Name: Cindy Arndt Patient : 1955 Gender: female Date of Admission: 07/02/2014 Date of Discharge: 07/05/2014 Admitting Provider: Frandy Teresa DO Discharging Provider: Chris Nicole PA-C Consultants: none PCP: Natalee Andersen transferring to: [facility] Provider after transfer: PCP and Dr. Frandy Teresa CODE STATUS: [x] Attempt CPR [] Do not resuscitate If patient is pulseless and not breathing, RN/OFFSET PLATE MAKER may pronounce . Advanced Directives included: [] [...] for this patient. Diet: [] As tolerated ROBOTICS TECHNICIAN may upgrade or downgrade diet as condition Indicates. [x] RN may downgrade diet as indicated. Type: [] Continue current diet of: Diet and Supplements Diet DIET CONSISTENT CARBOHYDRATE Number of Occurrences: -1 Days [] Other: Consistency/Precautions: [] Whole [] Thin Liquids [] Cut-up [] Ojus Thick [] Advanced Chopped [] Honey Thickened [] Chopped [] Advanced Ground [] 1:1 feedings [] Ground/Pureed [] Other: Tube Feedings: [] PEG [] GT [] JT [] NGT [] Formula type: (Beamer Operator may change/substitute if indicated). [] Continuous [...] & Management for: ____same as above [] ROBOTICS TECHNICIAN Evaluation &Management for: [] Other: Wound/Skin Care: [...] Take 15 mg by mouth ni linda. Bejou-3 Fatty Acids (FISH OIL CONCENTRATE) 1000 MG [...] (pediatric) IChris PA-C, certify that post hospital alf care is medically nec essary on a continuing basis for any of the conditions for which he/she received care during this hospitalization. Check one: [x] Skilled [] Intermediate Additional Orders/Instructions: Physician's signature:__Chris Nicole PA-C 07/05/2014 13:18 [facility] USE ONLY: [] Admitting [...] tolerate progressive walking and doing stairs [facility] stay due to multiple pain c/o. Attempted to see pt. 1145, however had just rec eived pain medication and requested PT return, SPL 9/10. At 1205 pt contacted PT for assist OOB due to left LE spasms and need for position change. Sitting at EOB on arrival, SAFETY LAMP KEEPER pres ent. Pt. donned LSO brace, stood [...] of endurance. When patient is walking in [facility] with a regular FWW she has to stop frequently and states she feels very weak, like sh e may fall. Patient lives alone. Outpatient prescriptions are filled at [facility] in [facility]. Electronically signed by: Franca Narvaez RN 07/05/2014 10:43 lan of Adilene Layne Rivers - 07/05/2014 10:39 AM PDTFaxed referral to Gabriela Stout and Lidia Tran. [place] : [id number] and [place]: [id number] Electronically signed by: Layne Collado 07/05/2014 10:40 [...] TBD) Equipment Recommendations: tub bench;hand held shower head;replacer;comfort height toilet ( pt. has all necessary equipment) Planned Interventions: ADL retraining;transfer training Patient Status/Goals Reflects last filed data of patient status; may be from multiple contributors. Grooming: Status: did not occur today Assist: Utilizes: STG: Status: New Goal:modified independent LTG: Status: Goal: UE Dressing: Status: SBA Assist: Utilizes: STG: Status: Goal: LTG: Status: Goal: LE Dressing: Status: SBA Utilizes: replacer STG: Status: New Goal: modified independent LTG: [...] bed mobil ity. Pt has been using SCREENING UNIT REGISTERED NURSE and pain pills during the night. Zofran [...] by herself in a small apartment in [place]. Patient states she has her apartment set [...] to come from [facility] [place]. She states the Said she might benefit [facility] upon discharge. She would like me to contact [facility] to giv e them a heads up. I called and spoke to Summer at [facility] , told her patients PCP i [...] Pt. resting in bed on arrival, used SCREENING UNIT REGISTERED NURSE x 2 during session. SPL 5/10. Pt. hoping to urinate dairy inspector to straight cath. Sidelying to sit at [...] modified indpt status. Physical Therapy will follow Cnidy Arndt daily until discharge from therapy or [...] TBD) Equipment Recommendations: tub bench;hand held shower head;replacer;comfort height toilet ( pt. has all necessary [...] & Review . Outcome: Progressing Pt using SCREENING UNIT REGISTERED NURSE and PO pain pills, c/o numbness on [...] and on a continuous oximeter for her SCREENING UNIT REGISTERED NURSE. She was unable to do her IS because o f the medications. She has the IS at bedside with a goal of 2400. She did not require additi onal respiratory care throughout the evening. p Note - Frandy Teresa, - 07/02/2014 2:25 PM PDTDATE: 07/02/2014 SURGEON: Frandy Teresa MD. SENIOR TALENT MANAGEMENT CONSULTANT: ZANE Oh PREOPERATIVE DIAGNOSES 1. Spondylolisthesis, L5-S1. [...] x 26 mm Capstone PEEK cage from [employer] was chosen. It was filled with Infus [...] Note Cindy Arndt 58 y.o. female 1955 [id number] Proc. Date 07/02/2014 Preop Dx Spondylolisthesis L5-S1 Postop Dx same Procedure Procedure(s):MIS L5-S1 TRANSFORAMINAL LUMBAR INTERBODY FUSION Anesthesia General Surgeon Frandy Teresa DO Delivery Architect ZANE Oh EBL 100 mL Findings Findings consistent with scheduled procedure. No other abnormalities found. Complications none Specimens * No specimens in log * Drains Electronically signed by: Frandy Teresa DO 07/02/2014 14:22 [facility] documented in this en counter Plan of [...] F | | | | | | [place] [address] | | | | | | [phone] | | | | | | | [...] + | [facility] | [address] | [place], [place] | [phone] | | [facility] | | [id number] | | | - LABORATORY | | | | + + + + + | [facility] | [address] | [place], [place] | | | [facility] | | [id number] | | | - LABORATORY | [...] [address] | [place] | [phone] | | [facility] | | [id number] | | | - LABORATORY | | | | + + + + + | [facility] | [address] | [place] | | | [facility] | | [id number], [facility] | | | - [...] + | [facility] | [address] | [place], [place] | [phone] | | [facility] | | [id number] | | | - LABORATORY | | | | + + + + + | [facility] | [address] | [place], [place] | | | [facility] | | [address] [place] [address] | | | - LABORATORY | | [...] + | [facility] | [address] | [place] | [phone] | | [facility] | | [id number] | | | - LABORATORY | | | | + + + + + | [facility] | [address] | [place] | | | [facility] | | [id number] | | | - LABORATORY [...] + | [facility] | [address] | [place], [place] | [phone] | | [facility] | | [id number] | | | - LABORATORY | | | | + + + + + | [facility] | [address] | [place], [place] | | | [facility] | | [id number] | | | - LABORATORY | [...] + | [facility] | [address] | [place] | [phone] | | [facility] | | [address] | | | - LABORATORY | | | | + + + + + | [facility] | [address] | [place] | | | [facility] | | [id number] | | | - LABORATORY [...] + | [facility] | [address] | [place], [place] | [phone] | | [facility] | | [id number] | | | - LABORATORY | | | | + + + + + | [facility] | [address] | [place], [place] | | | [facility] | | [address] [place] [address] | | | - LABORATORY | | [...] + | [facility] | [address] | [place] | [phone] | | [facility] | | [address] | | | - LABORATORY | | | | + + + + + | [facility] | [address] | [place], [place] | | | [facility] | | [id number] | | | - LABORATORY [...] + | [facility] | [address] | [place] | [phone] | | [facility] | | [address] | | | - LABORATORY | | | | + + + + + | [facility] | [address] | [place] | | | [facility] | | [id number] | | | - LABORATORY [...] | of hardware for posterior fusion from O1cibajxi S1 with interbody hardware at L5-S1. The [...] + | MISCELLANEOUS LAB | | | [phone] | + +---------+ + + | MISCELANIOUS LAB | | | [phone] | + +---------+ + + POC Glucose [...] + | [facility] | [address] | [place], [place] | [phone] | | [facility] | | [address] | | | - LABORATORY | | | | + + + + + | [facility] | [address] | [place], [place] | | | [facility] | | [id number] | | | - LABORATORY | [...] [address] | [place] | [phone] | | [facility] | | [address] | | | - LABORATORY | | | | + + + + + | [facility] | [address] | [place] | | | [facility] | | [id number] | | | - LABORATORY [...] + | [facility] | [address] | [place], [place] | [phone] | | [facility] | | [address] | | | - LABORATORY | | | | + + + + + | [facility] | [address] | [place], [place] | | | [facility] | | [address] [place] [address] | | | - LABORATORY | | [...] + | [facility] | [address] | [place] | [phone] | | [facility] | | [id number] | | | - LABORATORY | | | | + + + + + | [facility] | [address] | [place] | | | [facility] | | [id number] | | | - LABORATORY [...] + | [facility] | [address] | [place], [place] | [phone] | | [facility] | | [address] | | | - LABORATORY | | | | + + + + + | [facility] | [address] | [place], [place] | | | [facility] | | [address] [place] [address] | | | - LABORATORY | | [...] St | [place] | | | [facility] | | [id number] | | | - BLOOD BANK | [...] + +---------+ +---+---+---+ | morphine 5 mg/mL SCREENING UNIT REGISTERED NURSE syringe | New Bag | 07/02/20 | [...] | | | | Dose(mg): 0, Starting SCREENING UNIT REGISTERED NURSE | | | | | | | Dose(mg): 1, Incremental Increase | | | | | | | SCREENING UNIT REGISTERED NURSE Dose(mg): 0.5, Maximum SCREENING UNIT REGISTERED NURSE | | | | | | | [...]
--- OUTSIDE RECORDS SUMMARY | ~2020-04-20 | XMS | Encounter Summary ---
Demographics + + + | Address | [address] | | | [place] [address] | + + + | Home Phone | | + + + | Preferred Language | Unknown | + + + | Marital Status | Single | + + + | Yarsani Affiliation | Unknown | + + + | Race | White | + + + | Ethnic Group | Not or | + + + Author + + + | Author | [facility] | + + + | Organization | [facility] | + + + | Address | Unknown | + + + | Phone | Unavailable | + + + Support + + + + + | Name | Relationship | Address | Phone | + + + + + | Kelsy Bautista | E[address] | [address] | | | | | [place] | | | | | [address] | | + + + + + Care Team Providers + +------+ + | Care V Belt Mold Assembler And Curer Name | Role | Phone | + [...] | | | | | | [place], | | | | | | [place] [address] | | | | | | [phone] | | | +--------+ + + + [...] | + +---------+ + + | [facility] DEPARTMENT OF | | | | | RADIOLOGY | | | | + +---------+ + + documented in this encounter Visit Diagnoses Not on filedocumented in this encounter"
--- OUTSIDE RECORDS SUMMARY | ~2020-04-20 | XMS | Encounter Summary ---
Demographics + + + | Address | [address] | | | [place] [address] | + + + | Home Phone [...] [place] | | | | | [address] | | + + + + + Care Team Providers + +------+ + | Care Palm And Back Forger Name | Role | Phone | + +------+ + | Natalee Andersen NP | PCP | | + +------+ + Encounter Details +--------+ + + + + | Date | Type | Department | Care Team | Description | +--------+ + + + + | 06/26/ | Hospital | [facility] | Heather Cordero PT | | | 2014 | Encounter | MED CTR ACUTE | [address] | | | | | PHYSICAL THERAPY | [place] | | | | | [address] | [address] | | | | | [place] [address] | | | | | | [phone] | | | +--------+ + + + [...] + + + +---------+ + + | De [place]-3 Fatty | Take 1,000 mg by | [...] [address] | | | | | | [place] [address] | | | | | | [phone] | | | | | | | | +--------+---------+ + + + documented as of this encounter Visit Diagnoses Not on filedocumented in this encounter"
--- OUTSIDE RECORDS SUMMARY | ~2020-04-20 | XMS | Encounter Summary ---
Demographics + + + | Address | [address] | | | [place] [address] | + + + | Home Phone [...] [place] | | | | | [address] | | + + + + + Care Team Providers + +------+ + | Care Extension Service Specialist Name | Role | Phone [...] [address] | | | | | [place], [place] | Shaheen Simons | | | | | [address] | [place] [address] | | | | | [phone] | [phone] | | | | | | | [...] | | | | | | [place] [address] | | | | | | [phone] | | | | | | | [...] GIVEN Testing | | | performed at [facility];[address];[place] [address] CULTURE | | | 50,000 TO 100,000 CFU/ML | | | MIXED GRAM POSITIVE HAIDER NO SUSCEPTIBILITY TO FOLLOW | | | MULTIPLE ORGANISM TYPES PRESENT, | | | SUGGESTIVE OF CONTAMINATION OR COLONIZATION. SUGGEST RECOLLECTION FOR | | | CULTURE. Testing | | | performed at [facility];[address];[place] [address] REPORT | | | STATUS 06/08/2012 FINAL [...]
--- OUTSIDE RECORDS SUMMARY | ~2020-04-20 | XMS | Encounter Summary ---
Demographics + + + | Address | [address] | | | [place] [address] | + + + | Home Phone [...] [place], [place] | | | | | [address] | | + + + + + Care Team Providers + +------+ + | Care Hospital Director Name | Role | Phone | + +------+ + PCP | Unavailable | + +------+ + Encounter Details +--------+ + + + + | Date | Type | Department | Care Team | Description | +--------+ + + + + | 08/21/ | Hospital | [facility] | | | | 1996 | Encounter | MED CTR LABORATORY | | | | | | [address] | | | | | | [place] | | | | | | [address] | | | | | | [phone] | | | +--------+ + + + [...] [address] | | | | | | [place] [address] | | | | | | [phone] | | | | | | | | +--------+---------+ + + + documented as of this encounter Visit Diagnoses Not on filedocumented in this encounter"
--- OUTSIDE RECORDS SUMMARY | ~2020-04-20 | XMS | Encounter Summary ---
Demographics + + + | Address | [address] | | | [place] [address] | + + + | Home Phone [...] [place] | | | | | [address] | | + + + + + Care Team Providers + +------+ + | Care Acquisitions Librarian Name | Role | Phone | [...] | | | | | mellitus, | [address] | [place] | | | | | controlled | Phone: | [phone] | | | | | (HCC) | [phone] | Phone: | | | | | History of | Fax: | [phone] | | | | | gastric | [phone] | Fax: | | | | | restrictive | | [phone] | | | | | surgery | [...] | | hypertension | [address] | | | | | Lumbar | AVE [place] | [address] | | | | | radiculopath | [place], [place] | AVE | | | | | y Type 2 | [address] | [place] | | | | | diabetes | Phone: | [address] | | | | | mellitus, | [phone] | Phone: | | | | | controlled | Fax: | [phone] | | | | | (HCC) | [phone] | Fax: | | | | | Obesity, | | [phone] | | | | | Class III, [...] | | [facility] & Katharine BUCIO in [place]. | + + + | Other | [...] + + | 03/06/ | Office | [facility] | Katharine Cardona PA-C | Hypothyroidism due | | 2014 | Visit | MEDICINE [address] | to acquired atrophy | | | | [address] [place] [address], | [place] [address] | of thyroid (Primary | | | | [place] [address] | [phone] | Dx); Essential | | | | [phone] | | hypertension; Iron | | | [...] | | | | ([facility]); Environmental | | | | | | [...] | | | | | obesity) ([facility]); | | | | | | Type 2 diabetes | | | | | | mellitus, controlled | | | | | | ([facility]); Preventative | | | | | | [...] t be different from the original. Ask [facility] if they think it might be helpful [...] Cont your meds as prescribed. F/U with [facility] as scheduled Neuropathy Continue gabapentin. May consider increase if pain is not controlled. May benefit from switching from Paxil to one of the SNRIs or TCAs for analgesic effects, ho manju, she is doing so well on her current regimen it may not be worth making any changes an d find alternate ways to deal with the pain. Would be worth discussing with [facility] Psych Back Pain Will refer to water therapy (aqua fitness) at [facility] as request ed. [...] procedures 4. Schizoaffective disorder, bipolar type ([facility]) 5. Neuropathy Vitamin B-12 6. BACK PAIN, LUMBAR, WITH RADICULOPATHY Ambulatory referral to Physical Therapy 7. ROGERS on CPAP 8. Stroke ([facility]) 9. Environmental and seasonal allergies fluticasone (FLONASE) 50 mcg/nasal spray 10. Gastroesophageal reflux disease without esophagitis dexlansoprazole (DEXILANT) 60 mg D R capsule 11. History of gastric restrictive surgery Vitamin D, 25-Hydroxy Nutrition Services - External - AMB Referral 12. Obesity, Class III, BMI 40-49.9 (morbid obesity) ([facility]) Ambulatory referral to Physical Therapy Nutrition Services - External - AMB Referral 13. Type 2 diabetes mellitus, controlled ([facility]) Ambulatory referral to Physical Therapy Nutrition Services [...] Cont your meds as prescribed. [facility] Neuropathy Continue gabapentin. May [...] the pain. Would be worth discussing with [facility] professional. Back Pain Will refer to water therapy (aqua fitness) at [facility] as request ed. Cont home exercise, [...] plan. The above note was dictated using [employer] voice recognition software. It may have not been proofread in entirety. Minor errors in grammar may occur. CHIEF COMPLAINT Chief Complaint Patient presents with Establish Care Presents to establish care. Former patient of [facility] in [place]. Other Possible stroke January 2015. Is now seeing Dr. Newman, changed to Plavix 02-27-15 from [facility]. Diabetes NIDDM. Checks blood sugars almost daily, [...] auditory, at 36. 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 She is now very well controlled on Saphris, Depakote, and Paxi l. She is followed by [facility] in [place]. She has DM2 that is well controlled [...] DO; Location: [facility] SOCIAL HISTORY History Social [...] mg by mouth Daily. Cholecalciferol (VITAMIN D-3) 02234 units CAPS Oral Take 50,000 Units by [...] Oral Take 10 mg by mouth nightly. Flint-3 Fatty Acids (FISH OIL CONCENTRATE) 1000 MG [...] | | | | [place] [address] | | | | | | [phone] | | | | | | | [...] | | | | | controlled ([facility]) | | | | | | Obesity, Class III, | | | | | | BMI 40-49.9 (morbid | | | | | | obesity) ([facility]) | | + + +--------+ + + | Nutrition Services - | Outpatient | Routin | Iron deficiency | Ordered: 03/06/2015 | | External - AMB | Referral | e | anemia Type 2 | | | Referral | | | diabetes mellitus, | | | | | | controlled ([facility]) | | | | | | History of gastric | | | | | | restrictive surgery | | | | | | Obesity, Class III, | | | | | | BMI 40-49.9 (morbid | | | | | | obesity) ([facility]) | | + + +--------+ + + [...] not | >60Comment: GLOMERULAR | >=60 | [facility] | | | | FILTRATION | mL/min/1.73m2 | [facility] | | | [facility]MANI | RATE,ESTIMATED | | MEDICAL | | | | mL/min/1.30j7Elot than | | CENTER - | | [...] 0.3 | 0.1 - 1.5 mg/dL | [facility] [...] ST. | [address] | [place], [place] | [phone] | | [facility] | | [address] | | | - LABORATORY | | [...] Class III, BMI 40-49.9 (morbid obesity) ([facility]) Morbid obesity | + + | Type 2 diabetes mellitus, controlled ([facility]) Type II or unspecified type diabetes | | mellitus without mention of complication, not stated as uncontrolled | + + | Preventative health care Routine general medical examination at a health care | | facility | + + documented in this encounter
--- OUTSIDE RECORDS SUMMARY | ~2020-04-20 | XMS | Encounter Summary ---
Demographics + + + | Address | [address] | | | [place] [address] | + + + | Home Phone [...] [place] | | | | | [address] | | + + + + + Care Team Providers + +------+ + | Care Computer Lab Assistant Name | Role | Phone | [...] | | | | | [place] | | | | | | [address] | | | | | | [phone] | | | +--------+ + + + [...] | | | | | [place] [address] | | | | | | [phone] | | | | | | | | +--------+---------+ + + + documented as of this encounter Visit Diagnoses Not on filedocumented in this encounter"
--- OUTSIDE RECORDS SUMMARY | ~2020-04-20 | XMS | Encounter Summary ---
Demographics + + + | Address | [address] | | | [place] [address] | + + + | Home Phone [...] [place], [place] | | | | | [address] | | + + + + + Care Team Providers + +------+ + | Care Human Resources Services Specialist Name | Role | Phone | + +------+ + PCP | Unavailable | + +------+ + Encounter Details +--------+ + + + + | Date | Type | Department | Care Team | Description | +--------+ + + + + | 05/25/ | Hospital | [facility] | | | | 1991 | Encounter | [facility] | | | | | | [address] | | | | | | [place] | | | | | | [address] | | | | | | [phone] | | | +--------+ + + + [...] [facility] | | | | | | [place] [address] | | | | | | [phone] | | | | | | | | +--------+---------+ + + + documented as of this encounter Visit Diagnoses Not on filedocumented in this encounter"
--- OUTSIDE RECORDS SUMMARY | ~2020-04-20 | XMS | Encounter Summary ---
Demographics + + + | Address | [address] | | | [place] [address] | + + + | Home Phone [...] [place] | | | | | [address] | | + + + + + Care Team Providers + +------+ + | Care Test Boring Crew Chief Name | Role | Phone [...] | SLEEP DISORDER [address] | [address] | | | | | [address] [place] | [place], [place] | | | | | [place] [address] | [address] | | | | | [phone] | | | +--------+ + + + [...] [place] | | | | | | [place] [address] | | | | | | [phone] | | | | | | | | +--------+---------+ + + + documented as of this encounter Visit Diagnoses Not on filedocumented in this encounter"
--- OUTSIDE RECORDS SUMMARY | ~2020-04-20 | XMS | Clinical Summary ---
Demographics + + + | Address | [address] | | | [place] [address] | + + + | Home Phone [...] [place] | | | | | [address] | | + + + + + Care Team Providers + +------+ + | Care Milliner Helper Name | Role | Phone | [...] | | | | e | | ([employer] VERIO FLEX | | | | | [...] + + +---------+------+------+-------+ | amitriptyline | Take 100 mg by mouth | | 0 | | | Activ | | (ELAVIL) 150 MG | nightly. | | | | | e | | tablet | | | | | | | + + + +---------+------+------+-------+ | metoprolol | Take 2 tablets by | 120 | 11 | 04/2 | | Activ | | succinate | mouth 2 times daily. | tablet | | 3/20 | | e | | (TOPROL-XL) 50 mg 24 | | | | 20 | | | | hr tablet | [...] | 12/17/2019 | + + + | History of atrial fibrillation | 12/16/2019 | + + + | [...] 0 | + + + + | Type 2 diabetes mellitus, controlled | 03/29/20 | | | | 12 [...] | 04/03/ | Office | Cardiology | NicholasMimiDesiree, DO | Left bundle branch | | [...] | | | | | | obesity) ([facility]); | | | | | | History of atrial | | | | | | fibrillation; | | | | | | History of sleep | | | | | | apnea | +--------+ + + + + | 02/13/ | Office | Cardiology | Dora De La Torre | History of atrial | | 2020 | Visit | | [...] | | | | | | obesity) ([facility]) | +--------+ + + + + | 02/06/ | Telephone | Cardiology | Dora De La Torre | Patient Concerns | | 2019 | | | CAROLINE Mendez | | +--------+ + + + + | 02/05/ | Telephone | Cardiology | Ashley Chávez | Other (Patient | | 2019 | | | 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 ) | +--------+ + + [...] [facility] | | | | | | [place] [address] | | | | | | [phone] | | | | | | | | +--------+---------+ + + + + + +-------+ + | Health Maintenance | Due Date | Last | Comments | | | | Done | | + + +-------+ + | Hepatitis C | | | | | Screening | 5 | | | + + +-------+ + | Vaccine: | | | | | Dtap/Tdap/Td (1 - | 4 | | | | Tdap) | | | | + + +-------+ + | Colorectal Cancer | | | | | Screening | 5 | | | | (Colonoscopy) | | | | + + +-------+ + | Vaccine: Zoster (1 | | | | | of 2) | 5 | | | + + +-------+ + | Breast Cancer | | | | | Screening | 0 | | | + + +-------+ + | Adult Annual | | | | | Wellness Visit | 9 | | | + + +-------+ + | Statin Therapy | | | | | (optimal intensity) | 9 | | | + + +-------+ + | Vaccine: Influenza | | | | | (Season Ended) | 0 | | | + + +-------+ + Implants + +------+--------+ +--------+--------+--------+ | Implanted [...] | [employer] - | | 04/02/ | [id number] | | 5ccImplanted: Qty: 1 on | | Spine | MEDT | | 2019 | | | 07/02/2014 by Frandy Teresa | | Lumbar | | | | /[id number] | | DO Ronak at [facility] | | | | | | 6-020 | | [facility] | | | | | | / | + +------+--------+ +--------+--------+--------+ | Graft Infuse Bone Kit Xxs - | | N/A: | SOFAMOR | | 01/21/ | [id number] | | [id number]: Qty: 1 on | | Spine | DANEK - DIV | | 2014 | 0 / | | 07/02/2014 by Frandy Teresa | | Lumbar | [employer] | | | /[id number] | | DO Ronak at [facility] | | | - SFDK | | | [id number] | | [facility] | | | | | | | + +------+--------+ +--------+--------+--------+ | Imp Spn Spcr Cpstn 8x26mm - | | N/A: | SOFAMOR | | 01/11/ | [id number] | | [id number]: Qty: 1 on | | Spine | DANEK - DIV | | 2 | 6 / | | 07/02/2014 by Frandy Teresa | | Lumbar | [employer] | | | /[id number] | | DO Ronak at [facility] | | | - SFDK | | | 928 | | [facility] | | | | | | | + +------+--------+ +--------+--------+--------+ | Set Scrw Ns G5 Brk Off Ti | | N/A: | SOFAMOR | | | [id number] | | 4.75 - [id number]: | | Spine | DANEK - DIV | | | 0 / / | | Qty: 4 on 07/02/2014 by | | Lumbar | [employer] | | | | | Frandy Teresa DO at [facility] | | | - SFDK | | | | | [facility] | | | | | | | | [place] | | | | | | | + +------+--------+ +--------+--------+--------+ | RodImplanted: Qty: 1 on | | N/A: | | | | [id number] | | 07/02/2014 by Frandy Teresa | | Spine | | | | 540 / | | A, DO at [facility] | | Lumbar | | | | / | | [facility] | | | | | | | + +------+--------+ +--------+--------+--------+ | RodImplanted: Qty: 1 on | | N/A: | MEDTROL - | | | [id number] | | 07/02/2014 by Frandy Teresa | | Spine | MDTR | | | 545 / | | A, DO at [facility] | | Lumbar | | | | / | | [facility] | | | | | | | + +------+--------+ +--------+--------+--------+ | Screw 7.5x50mm Sextant - | | N/A: | [employer] - | | | [id number] | | [id number]: Qty: 1 on | | Spine | MEDT | | | [id number] | | 07/02/2014 by Frandy Teresa | | Lumbar | | | | / / | | A, DO at [facility] | | | | | | | | [facility] | | | | | | | + +------+--------+ +--------+--------+--------+ | Cannulated ScrewImplanted: | | N/A: | MEDTROL - | | | [id number] | | Qty: 1 on 07/02/2014 by | | Spine | MDTR | | | [id number] | | Frandy Teresa DO at [facility] | | Lumbar | | | | / / | | [facility] | | | | | | | | CENTER | | | | | | | + +------+--------+ +--------+--------+--------+ | Cannulated ScrewImplanted: | | N/A: | [employer]IC - | | | [id number] | | Qty: 1 on 07/02/2014 by | | Spine | MEDT | | | [id number] | | Frandy Teresa DO at [facility] | | Lumbar | | | | / / | | [facility] | | | | | | | [...] | | | | | | obesity) ([facility]) | | + +--------+ + + + [...] +--------+ +---------+--------+ | MEDICARE | MEDICA | [id number] | 02/22/20 | [phone] | | Medica | | | RE | | 09-Pre | 5 | | re | | | PART A | | sent | | | | | | AND B | | | | | | + +--------+ +--------+ +---------+--------+ | MEDICARE | MEDICA | [id number] | 02/22/20 | [phone] | | Medica [...] [place] | | | 1 (Home) | [address] | + +--------+ +--------+ + + | Cindy Arndt L | Person | Self | [birth year] | [address] | | | al/Fam | | 1955 | [phone] | [address] [place], [place] | | | [place] | | | 1 (Home) | [address] | + +--------+ +--------+ + + Advance Directives + + + + + | Type | Date Recorded | Patient | Explanation | | | | Interpretive Naturalist | | + + + + + | Power of | | | | | Utility Plant Operative | | | | + + + [...]
--- OUTSIDE RECORDS SUMMARY | ~2020-04-20 | XMS | Encounter Summary ---
Demographics + + + | Address | [address] | | | [place] [address] | + + + | Home Phone [...] [place], [place] | | | | | [address] | | + + + + + Care Team Providers + +------+ + | Care Respite Worker Name | Role | Phone | + +------+ + PCP | Unavailable | + +------+ + Encounter Details +--------+ + + + + | Date | Type | Department | Care Team | Description | +--------+ + + + + | 09/10/ | Hospital | [facility] | | | | 1992 | Encounter | [facility] | | | | | | [address] | | | | | | [place] | | | | | | [address] | | | | | | [phone] | | | +--------+ + + + [...] [facility] | | | | | | [place] [address] | | | | | | [phone] | | | | | | | | +--------+---------+ + + + documented as of this encounter Visit Diagnoses Not on filedocumented in this encounter"
--- OUTSIDE RECORDS SUMMARY | ~2020-04-20 | XMS | Encounter Summary ---
Demographics + + + | Address | [address] | | | [place] [address] | + + + | Home Phone [...] [place] | | | | | [address] | | + + + + + Care Team Providers + +------+ + | Care Women Nurse Name | Role | Phone | [...] | | | spondylolist | | [address] | | | | | hesis | | [place], | | | | | Spinal | | [place] [address] | | | | | stenosis, | | Phone: | | | | | lumbar | | [phone] | | | | | region, | | Fax: | | | | | without | | [phone] | | | | | neurogenic | [...] | | | | | | | [place] | | | | | | [...] | | | | | | [place] | | | | | | | [...] | | | | | | [place] | | | | | | | [...] + + | 07/02/ | Surgery | [facility] | Frandy Teresa, | MIS L5-S1 | | 2013 | | MED CTR OR INTRA OP | DO [address] | TRANSFORAMINAL | | | | [address] | [address] [place], [place] | LUMBAR INTERBODY | | | | [place] | [id number] | FUSION | | | | [address] | | | | | | [phone] | | | +--------+---------+ + + + [...] Stable for discharge to SNF. DISPOSITION: SNF ([facility]) DISCHARGE MEDICATIONS Medications prior to [...] Take 15 mg by mouth nightl y. [place]-3 Fatty Acids (FISH OIL CONCENTRATE) 1000 [...] + + + +---------+ + + | [place]-3 Fatty | Take 1,000 mg by | [...] Lynn PA-C - 07/04/2014 7:43 AM PDT [facility] PROGRESS NOTE Pt. Name/Age/: Cindy Arndt 58 y.o. 1955 Med. Record Number: [id number] Date of admission: 07/02/2014 Subjective: The patient [...] mari drain and riley cath today. 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 Patient Active Problem List Diagnosis LUMBAR DISC [...] by: Chris Nicole, 07/04/2014 7:45 [facility] Chris Lynn PA-C - 07/03/2014 7:13 AM PDT . [facility] PROGRESS NOTE Pt. Name/Age/: Cindy Arndt 58 y.o. 1955 Med. Record Number: [id number] Date of admission: 07/02/2014 Subjective: The patient [...] Electronically signed by: Chris Nicole, 07/03/2014 7:13 [facility] on Smith, KRIS - 07/03/2014 [...] signed by: Frandy Teresa DO, 07/02/2014 11:15 [facility] by Frandy Teresa DO at 06/2014 11:15 AM PDTDreyFrandy tim DO - 07/02/2014 11:15 AM [id number] [facility], [address] [place] [address] FAX: NEUROSURGERY HISTORY AND PHYSICAL EXAMINATION CHIEF [...] Take 15 mg by mouth nigh tlgaston. [place]-3 Fatty Acids (FISH OIL CONCENTRATE) 1000 [...] Intrinsics 5 5 Ulnar Intrinsics 5 5 Data Management Specialist Strength 5 5 Hip Flexion 5 [...] documented in this en counter Procedure Notes [facility] - 07/12/2014 12:00 AM PDT 14 1:45 PM PDTUNITED [facility] - 07/04/2014 12:00 AM PDT [facility] - 07/02/2014 12:00 AM PDT documented in this encounter Miscellaneous Notes Plan of Care - [facility] - 07/12/2014 12:00 AM PDT iscellaneous - [facility] 07/12/2014 12:00 AM PDTElec tronically signed by Mariah Schulte at 07/12/2014 1:45 PM PDTMiscellaneous - [facility] - 07/12/2014 12:00 AM PDT i scellaneous - [facility] - 07/12/2014 12:00 AM PDT [...] and I will be going to a snf as I have 16 steps to my [...] TBD) Equipment Recommendations: tub bench;hand held shower head;group underwriter;comfort height toilet ( pt. has all necessary [...] might be different fro m the original. HALFWAY FACILITY TRANSFER ORDERS Patient Name: Cindy Arndt Patient : 1955 Gender: female Date of Admission: 07/02/2014 Date of Discharge: 07/05/2014 Admitting Provider: Frandy Teresa DO Discharging Provider: Chris Nicole PA-C Consultants: none PCP: Natalee Andersen [facility] transferring to: [facility] Provider after transfer: PCP and Dr. Frandy Teresa CODE STATUS: [x] Attempt CPR [] Do not resuscitate If patient is pulseless and not breathing, RN/STUNT DRIVER may pronounce . Advanced Directives included: [] [...] for this patient. Diet: [] As tolerated DISPATCH SUPERVISOR may upgrade or downgrade diet as condition Indicates. [x] RN may downgrade diet as indicated. Type: [] Continue current diet of: Diet and Supplements Diet DIET CONSISTENT CARBOHYDRATE Number of Occurrences: -1 Days [] Other: Consistency/Precautions: [] Whole [] Thin Liquids [] Cut-up [] [place] Thick [] Advanced Chopped [] Honey Thickened [] Chopped [] Advanced Ground [] 1:1 feedings [] Ground/Pureed [] Other: Tube Feedings: [] PEG [] GT [] JT [] NGT [] Formula type: (Combat Systems Operator Mine Warfare may change/substitute if indicated). [] Continuous Rate: [...] & Management for: ____same as above [] DISPATCH SUPERVISOR Evaluation &Management for: [] Other: Wound/Skin [...] tablet 1-2 tablets Take 1-2 tablets by [facility] every 4 hours as needed for [...] Take 15 mg by mouth ni ghtly. [place]-3 Fatty Acids (FISH OIL CONCENTRATE) 1000 [...] Chris Nicole PA-C, certify that post hospital half-way care is medically nec essary on a continuing basis for any of the conditions for which he/she received care during this hospitalization. Check one: [x] Skilled [] Intermediate Additional Orders/Instructions: Physician's signature:__Chris Nicole PA-C 07/05/2014 13:18 [facility] USE ONLY: [] [...] tolerate progressive walking and doing stairs [facility] hospital stay due to multiple pain c/o. Attempted to see pt. 1145, however had just rec eived pain medication and requested PT return, SPL 9/10. At 1205 pt contacted PT for assist OOB due to left LE spasms and need for position change. 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 Pt. donned LSO [...] of endurance. When patient is walking in [facility] with a regular FWW she has to stop frequently and states she feels very weak, like sh e may fall. Patient lives alone. Outpatient prescriptions are filled at [facility] in [facility]. Electronically signed by: Franca Narvaez RN 07/05/2014 10:43 lan of Adilene Layne Rivers - 07/05/2014 10:39 AM PDTFaxed referral to Gabriela Stout and Lidia Tran. [place] : [id number] and [place]: [id number] Electronically signed by: Layne Collado 07/05/2014 10:40 Received a call from [facility]. They can accept Cindy. Received a call from [facility] Tr[facility] and they can't accept Cindy. Tanna from [facility] called and they don't have any beds at this time Electronically signed by: Layne Collado 07/05/2014 12:22 Started the SNF packet. Electronically signed by: Layne Collado 07/05/2014 12:56 lan of [facility] Sandhya Benites RN - 07/05/2014 5:14 [...] TBD) Equipment Recommendations: tub bench;hand held shower head;group underwriter;comfort height toilet ( pt. has all necessary equipment) Planned Interventions: ADL retraining;transfer training Patient Status/Goals Reflects last filed data of patient status; may be from multiple contributors. Grooming: Status: did not occur today Assist: Utilizes: STG: Status: New Goal:modified independent LTG: Status: Goal: UE Dressing: Status: SBA Assist: Utilizes: STG: Status: Goal: LTG: Status: Goal: LE Dressing: Status: SBA Utilizes: group underwriter STG: Status: New Goal: modified independent LTG: [...] bed mobil ity. Pt has been using SETTER AUTOMATIC SPINNING LATHE and pain pills during the night. Zofran [...] by herself in a small apartment in [place]. Patient states she has her apartment set [...] [facility] [place]. She states the Said she might benefit fr Home Health upon discharge. She would like me to contact [facility] to giv e them a heads up. I called and spoke to Summer at [facility] , told her patients PCP i s [...] Pt. resting in bed on arrival, used SETTER AUTOMATIC SPINNING LATHE x 2 during session. SPL 5/10. Pt. hoping to urinate coil machine supervisor to straight cath. Sidelying to sit at [...] TBD) Equipment Recommendations: tub bench;hand held shower head;group underwriter;comfort height toilet ( pt. has all necessary [...] & Review . Outcome: Progressing Pt using SETTER AUTOMATIC SPINNING LATHE and PO pain pills, c/o numbness on [...] and on a continuous oximeter for her SETTER AUTOMATIC SPINNING LATHE. She was unable to do her IS because o f the medications. She has the IS at bedside with a goal of 2400. She did not require additi onal respiratory care throughout the evening. p Note - Frandy Teresa, DO - 07/02/2014 2:25 PM PDTDATE: 07/02/2014 SURGEON: Frandy Teresa MD. NEW VEHICLE SALES CONSULTANT: ZANE Oh PREOPERATIVE DIAGNOSES 1. Spondylolisthesis, [...] x 26 mm Capstone PEEK cage from [employer] was chosen. It was filled with Infus [...] Note Cindy Arndt 58 y.o. female 1955 [id number] Proc. Date 07/02/2014 Preop Dx Spondylolisthesis L5-S1 Postop Dx same Procedure Procedure(s):MIS L5-S1 TRANSFORAMINAL LUMBAR INTERBODY FUSION Anesthesia General Surgeon Frandy Teresa DO News Librarian ZANE Oh EBL 100 mL Findings Findings consistent with scheduled procedure. No other abnormalities found. Complications none Specimens * No specimens in log * Drains Electronically signed by: Frandy Teresa DO 07/02/2014 14:22 [facility] documented in this en counter [...] [address] | | | | | | [place] [address] | | | | | | [phone] | | | | | | | [...] + | [facility] | [address] | [place], [place] | [phone] | | [facility] | | [address] | | | - LABORATORY | | | | + + + + + | [facility] | [address] | [place], [place] | | | [facility] | | [address], [facility] | | | - LABORATORY [...] [address] | [place] | [phone] | | [facility] | | [address] | | | - LABORATORY | | | | + + + + + | [facility] [facility] | [address] | [place] | | | [facility] | | [address], [facility] | | | - LABORATORY [...] + | [facility] | [address] | [place], [place] | [phone] | | [facility] | | [address] | | | - LABORATORY | | | | + + + + + | [facility] | [address] | [place], [place] | | | [facility] | | [address], [facility] | | | - LABORATORY [...] ST. | [address] | [place], [place] | [phone] | | [facility] | | [address] | | | - LABORATORY | | | | + + + + + | [facility] | [address] | [place], [place] | | | [facility] | | [address] | | | - LABORATORY [...] + | [facility] | [address] | [place], [place] | [phone] | | [facility] | | [address] | | | - LABORATORY | | | | + + + + + | [facility] | [address] | [place] | | | [facility] | | [address] | | | - [...] [address] | [place] | [phone] | | [facility] | | [address] | | | - LABORATORY | | | | + + + + + | [facility] | [address] | [place] | | | [facility] | | [address], [facility] | | | - LABORATORY [...] + | [facility] | [address] | [place], [place] | [phone] | | [facility] | | [address] | | | - LABORATORY | | | | + + + + + | [facility] | [address] | [place], [place] | | | [facility] | | [address] [place] [address] | | | - LABORATORY | | [...] + | [facility] | [address] | [place] | [phone] | | [facility] | | [address] | | | - LABORATORY | | | | + + + + + | [facility] | [address] | [place] | | | [facility] | | [address] | | | - LABORATORY [...] + | [facility] | [address] | [place], [place] | [phone] | | [facility] | | [address] | | | - LABORATORY | | | | + + + + + | [facility] | [address] | [place], [place] | | | [facility] | | [address] [place] [address] | | | - LABORATORY | | [...] | of hardware for posterior fusion from N4wnnnuyp S1 with interbody hardware at L5-S1. The [...] + | MISCELLANEOUS LAB | | | [phone] | + +---------+ + + | MISCELANIOUS LAB | | | [phone] | + +---------+ + + POC Glucose [...] + | [facility] | [address] | [place], [place] | [phone] | | [facility] | | [address] | | | - LABORATORY | | | | + + + + + | [facility] | [address] | [place], [place] | | | [facility] | | [address], [facility] | | | - LABORATORY [...] [address] | [place] | [phone] | | [facility] | | [address] | | | - LABORATORY | | | | + + + + + | [facility] | [address] | [place] | | | [facility] | | [address], [facility] | | | - LABORATORY [...] + | [facility] | [address] | [place], [place] | [phone] | | [facility] | | [address] | | | - LABORATORY | | | | + + + + + | [facility] | [address] | [place], [place] | | | [facility] | | [address] | | | - [...] [address] | [place] | [phone] | | [facility] | | [address] | | | - LABORATORY | | | | + + + + + | [facility] | [address] | [place], [place] | | | [facility] | | [address] | | | - LABORATORY [...] + | [facility] | [address] | [place] | [phone] | | [facility] | | [address] | | | - LABORATORY | | | | + + + + + | [facility] | [address] | [place], [place] | | | [facility] | | [address] [place] [address] | | | - LABORATORY | | [...] | | [facility] | | [address] | | | - BLOOD BANK | [...] mLs | | Surgical | | 1:200,000 0.25-1:283936 % | | 14 12:42 | | [...]
--- OUTSIDE RECORDS SUMMARY | ~2020-04-20 | XMS | Encounter Summary ---
Demographics + + + | Address | [address] | | | [place] [address] | + + + | Home Phone [...] [place], [place] | | | | | [address] | | + + + + + Care Team Providers + +------+ + | Care Advertising Campaign Manager Name | Role | Phone | + +------+ + PCP | Unavailable | + +------+ + Encounter Details +--------+ + + + + | Date | Type | Department | Care Team | Description | +--------+ + + + + | 02/24/ | Hospital | [facility] | | | | 1997 | Encounter | MED CTR EMERGENCY | | | | | | [address] | | | | | | [place] | | | | | | [address] | | | | | | [phone] | | | +--------+ + + + [...] [address] | | | | | | [place] [address] | | | | | | [phone] | | | | | | | | +--------+---------+ + + + documented as of this encounter Visit Diagnoses Not on filedocumented in this encounter"
--- OUTSIDE RECORDS SUMMARY | ~2020-04-20 | XMS | Encounter Summary ---
Demographics + + + | Address | [address] | | | [place] [address] | + + + | Home Phone [...] [place], [place] | | | | | [address] | | + + + + + Care Team Providers + +------+ + | Care Building Performance Specialist Name | Role | Phone | + +------+ + PCP | Unavailable | + +------+ + Encounter Details +--------+ + + + + | Date | Type | Department | Care Team | Description | +--------+ + + + + | 01/26/ | Hospital | [facility] [place] [facility] | [place], | | | 2011 | Encounter | MED CTR XRAY [address] | MD [address] | | | | | [place] | [place] | | | | | [place] [address] | [address] | | | | | [phone] | | | +--------+ + + + [...] | | | | [place] [address] | | | | | | [phone] | | | | | | | [...] Performed At | + + + | [facility] Diagnostic Imaging Department | [facility] | | [address] [facility] | [facility] | | BILATERAL KNEES, THREE VIEWS: | [...] Transcribed | | | Date/Time: 01/27/2012 17:18 Manager Lan: | | | <Electronically Signed by Willie Perry MD> 01/27/12 2254 | | + + + + + | Procedure Note | + + | Juan, Rad Conversion - 11/30/2013 5:03 PM formerly [facility] | | Diagnostic Imaging Department [address] [...] by Willie Perry MD> | | 01/27/12 2112 | | | |IMPRESSION: | |1. LATERALIZED [...] 17:12 | |Transcribed Date/Time: 01/27/2012 17:18 | |Manager Lan: | |<Electronically Signed by Willie Perry MD> [...]
--- OUTSIDE RECORDS SUMMARY | ~2020-04-20 | XMS | Encounter Summary ---
Demographics + + + | Address | [address] | | | [place] [address] | + + + | Home Phone [...] [place] | | | | | [address] | | + + + + + Care Team Providers + +------+ + | Care Chief Lending Officer Name | Role | Phone | [...] + + | 08/09/ | Clinical | [facility] | Desiree Peterson DO | Syncope, unspecified | | 2019 | Support | [facility] [place] | [address] | syncope type | | | | [address] | [place], [place] | | | | | [place] [address] | [address] | | | | | [place] | | | | | | [address] | Dora [address] [place] [address]re | | | | | [phone] | [address] | | | | | | [address] | | | | | | [place] [address] | | | | | | [phone] | | | | | | | [...] | | | | | | [place] [address] | | | | | | [phone] | | | | | | | | +--------+---------+ + + + documented as of this encounter Visit Diagnoses + + | Diagnosis | + + | Syncope, unspecified syncope type | + + documented in this encounter"
--- OUTSIDE RECORDS SUMMARY | ~2020-04-20 | XMS | Encounter Summary ---
Demographics + + + | Address | [address] | | | [place] [address] | + + + | Home Phone [...] [place] | | | | | [address] | | + + + + + Care Team Providers + +------+ + | Care Senior Software Engineer Analytics Name | Role | Phone | + [...] + + | 09/10/ | Documentati | [facility] | Katharine Moncada, | Other (urgent | | 2019 | on | CARDIOLOGY [place] | Technologist | report) | | | | [address] | | | | | | [place] | | | | | | [address] | | | | | | [phone] | | | +--------+ + + + [...] | | | | | [place] [address] | | | | | | [phone] | | | | | | | | +--------+---------+ + + + documented as of this encounter Visit Diagnoses Not on filedocumented in this encounter"
--- OUTSIDE RECORDS SUMMARY | ~2020-04-20 | XMS | Encounter Summary ---
Demographics + + + | Address | [address] | | | [place] [address] | + + + | Home Phone [...] [place], [place] | | | | | [address] | | + + + + + Care Team Providers + +------+ + | Care Behavior Analyst Name | Role | Phone | + +------+ + PCP | Unavailable | + +------+ + Encounter Details +--------+ + + + + | Date | Type | Department | Care Team | Description | +--------+ + + + + | 01/06/ | Hospital | [facility] | | | | 1992 | Encounter | MED CTR LABORATORY | | | | | | [address] | | | | | | [place] | | | | | | [address] | | | | | | [phone] | | | +--------+ + + + [...] [address] | | | | | | [place] [address] | | | | | | [phone] | | | | | | | | +--------+---------+ + + + documented as of this encounter Visit Diagnoses Not on filedocumented in this encounter"
--- OUTSIDE RECORDS SUMMARY | ~2020-04-20 | XMS | Encounter Summary ---
Demographics + + + | Address | [address] | | | [place] [address] | + + + | Home Phone [...] [place], [place] | | | | | [address] | | + + + + + Care Team Providers + +------+ + | Care Business Assistant Name | Role | Phone | + +------+ + PCP | Unavailable | + +------+ + Encounter Details +--------+ + + + + | Date | Type | Department | Care Team | Description | +--------+ + + + + | 04/16/ | [facility] | [facility] | Deon Gonzales | | | 2004 | Encounter | MED CTR SLEEP | MD [address] | | | | | [place] [address] | [address] [facility] | | | | | [place], [place] | [place] [address] | | | | | [address] | [phone] | | | | | [phone] | | | +--------+ + + + [...] | | | | | [place] [address] | | | | | | [phone] | | | | | | | | +--------+---------+ + + + documented as of this encounter Visit Diagnoses Not on filedocumented in this encounter"
--- OUTSIDE RECORDS SUMMARY | ~2020-04-20 | XMS | Encounter Summary ---
Demographics + + + | Address | [address] | | | [place] [address] | + + + | Home Phone [...] [place] | | | | | [address] | | + + + + + Care Team Providers + +------+ + | Care Tongue Presser Name | Role | Phone | + [...] | | | [address] [place] | [place] [address] | | | | | [place] [address] | | | | | | [phone] | | | +--------+ + + + [...] | | | | | [facility] [address] | | | | | | [phone] | | | | | | | [...]
--- OUTSIDE RECORDS SUMMARY | ~2020-04-20 | XMS | Encounter Summary ---
Demographics + + + | Address | [address] | | | [place] [address] | + + + | Home Phone [...] [place], [place] | | | | | [address] | | + + + + + Care Team Providers + +------+ + | Care Grounds And Nursery Specialist Name | Role | Phone | + +------+ + PCP | Unavailable | + +------+ + Encounter Details +--------+ + + + + | Date | Type | Department | Care Team | Description | +--------+ + + + + | 07/17/ | Hospital | [facility] | | | | 1997 | Encounter | MED CTR EMERGENCY | | | | | | [address] | | | | | | [place] | | | | | | [address] | | | | | | [phone] | | | +--------+ + + + [...] | | | | | | [place] [address] | | | | | | [phone] | | | | | | | | +--------+---------+ + + + documented as of this encounter Visit Diagnoses Not on filedocumented in this encounter"
--- OUTSIDE RECORDS SUMMARY | ~2020-04-20 | XMS | Encounter Summary ---
Demographics + + + | Address | [address] | | | [place] [address] | + + + | Home Phone [...] [place] | | | | | [address] | | + + + + + Care Team Providers + +------+ + | Care Lathe Spotter Name | Role | Phone | + [...] + | 06/26/ | Telephone | [facility] | Frandy Teresa, | Other | | 2013 | | NEUROSURGERY [address] | DO [address] | | | | | [address] [place] [address] | [address] [address] [place], [place] | | | | | [place], [place] | [id number] | | | | | [address] | | | | | | [phone] | | | +--------+ + + + [...] [address] | | | | | | [place] [address] | | | | | | [phone] | | | | | | | | +--------+---------+ + + + documented as of this encounter Visit Diagnoses Not on filedocumented in this encounter"
--- OUTSIDE RECORDS SUMMARY | ~2020-04-20 | XMS | Encounter Summary ---
Demographics + + + | Address | [address] | | | [place] [address] | + + + | Home Phone [...] [place] | | | | | [address] | | + + + + + Care Team Providers + +------+ + | Care Pastoral Counselor Name | Role | Phone | [...] AVE | | | | | [address] [facility] [address] | [place] [address] [place], [place] | | | | | [place], [place] | [id number] | | | | | [address] | | | | | | [phone] | | | +--------+--------+ + + + [...] will come today. [facility] - Megan Schreiber RN [...] [address] | | | | | | [place] [address] | | | | | | [phone] | | | | | | | | +--------+---------+ + + + documented as of this encounter Visit Diagnoses Not on filedocumented in this encounter"
--- OUTSIDE RECORDS SUMMARY | ~2020-04-20 | XMS | Encounter Summary ---
Demographics + + + | Address | [address] | | | [place] [address] | + + + | Home Phone [...] [place] | | | | | [address] | | + + + + + Care Team Providers + +------+ + | Care Entry Level Buyer Name | Role | Phone | + [...] + + | 08/20/ | Documentati | [facility] | Katharine Moncada, | Other (urgent | | 2019 | on | CARDIOLOGY [place] | Technologist | report) | | | | [address] | | | | | | [place] | | | | | | [address] | | | | | | [phone] | | | +--------+ + + + [...] [place] | | | | | | [place] [address] | | | | | | [phone] | | | | | | | | +--------+---------+ + + + documented as of this encounter Visit Diagnoses Not on filedocumented in this encounter"
--- OUTSIDE RECORDS SUMMARY | ~2020-04-20 | XMS | Encounter Summary ---
Demographics + + + | Address | [address] | | | [place] [address] | + + + | Home Phone [...] [place] | | | | | [address] | | + + + + + Care Team Providers + +------+ + | Care Community Facilitator Name | Role | Phone | + +------+ + | Hari Samson DO | PCP | | + +------+ + Encounter Details +--------+ + + + + | Date | Type | Department | Care Team | Description | +--------+ + + + + | 06/12/ | Hospital | [facility] | Frandy Teresa, | No Show | | 2014 | Encounter | MED CTR | DO [address] | | | | | ELECTRODIAGNOSTICS | [address] [place], [place] | | | | | [address] [place] | [address] | | | | | [place] [address] | | | | | | [phone] | | | +--------+ + + + [...] [place] | | | | | | [place] [address] | | | | | | [phone] | | | | | | | | +--------+---------+ + + + documented as of this encounter Visit Diagnoses Not on filedocumented in this encounter"
--- OUTSIDE RECORDS SUMMARY | ~2020-04-20 | XMS | Encounter Summary ---
Demographics + + + | Address | [address] | | | [place] [address] | + + + | Home Phone [...] [place] | | | | | [address] | | + + + + + Care Team Providers + +------+ + | Care Workers Compensation Specialist Name | Role | Phone | [...] [place] | | | | | | [address] | | | | | | [phone] | | | +--------+ + + + [...] [address] | | | | | | [place] [address] | | | | | | [phone] | | | | | | | | +--------+---------+ + + + documented as of this encounter Visit Diagnoses Not on filedocumented in this encounter"
--- OUTSIDE RECORDS SUMMARY | ~2020-04-20 | XMS | Encounter Summary ---
Demographics + + + | Address | [address] | | | [place] [address] | + + + | Home Phone [...] [place] | | | | | [address] | | + + + + + Care Team Providers + +------+ + | Care Tutoring Manager Name | Role | Phone | + +------+ + | Natalee Andersne NP | PCP | | + +------+ [...] [address] | [address] [place], [place] | Hypothyroidism; | | | | [place], [place] | [address] | GERD; BACK PAIN, | | | | [address] | | LUMBAR, WITH | | | | [phone] | | RADICULOPATHY; | | | | [...] | | | | | [place] [address] | | | | | | [phone] | | | | | | | [...]
--- OUTSIDE RECORDS SUMMARY | ~2020-04-20 | XMS | Encounter Summary ---
Demographics + + + | Address | [address] | | | [place] [address] | + + + | Home Phone [...] [place] | | | | | [address] | | + + + + + Care Team Providers + +------+ + | Care Automatic Toe Laster Name | Role | Phone | + [...] | 07/29/ | Telephone | [facility] | Frandy Cagle, | Other (multiple | | 2013 | | NEUROSURGERY [address] | DO [address] | questions) | | | | [facility] | [address] [place], [place] | | | | | [place], [place] | [id number] | | | | | [address] | | | | | | [phone] | | | +--------+ + + + [...] and I might get a repeat MRI. [place] ordered. Thanks. ddendum Note - Shayne Aragon [...] - 07/29/2014 11:19 AM PDTCall returned to [facility] to get fur ther information. [...] refill be mailed to her for her [place] 10/325mg which was given to her on [...] | | | | | [place] [address] | | | | | | [phone] | | | | | | | | +--------+---------+ + + + documented as of this encounter Visit Diagnoses Not on filedocumented in this encounter"
--- OUTSIDE RECORDS SUMMARY | ~2020-04-20 | XMS | Encounter Summary ---
Demographics + + + | Address | [address] | | | [place] [address] | + + + | Home Phone [...] Author + + + | Author | [facility] | + + + | Organization | [facility] | + + + | Address | Unknown | + + + | Phone | Unavailable | + + + Support + + + + + | Name | Relationship | Address | Phone | + + + + + | Kelsy Bautista | [address] | [address] | | | | | [place] | | | | | [address] | | + + + + + Care Team Providers + +------+ + | Care Clerk General Office Name | Role | Phone | + [...] | | | | | | [place], | | | | | | [place] [address] | | | | | | [phone] | | | +--------+ + + + [...] | | + +---------+ + + | [facility] DEPARTMENT OF | | | | | RADIOLOGY | | | | + +---------+ + + documented in this encounter Visit Diagnoses Not on filedocumented in this encounter"
--- OUTSIDE RECORDS SUMMARY | ~2020-04-20 | XMS | Encounter Summary ---
Demographics + + + | Address | [address] [facility] [facility] [address] | | | [place] [address] | + + + | Home Phone [...] [place] | | | | | [address] | | + + + + + Care Team Providers + +------+ + | Care Manager Agricultural Name | Role | Phone | + [...] | | | | | | [place] [address] | | | | | | [phone] | | | | | | | [...] /Neuropathology | | | | | | FellowSnodra Ahmadi, | | | | | | [...] in | | | | | | [place] with a | | | | | [...] | | | | | [facility] | | | | | | Laboratory, [place], | | | | | | [place], delivered | | | | | | [...] by | | | | | | gesoppatNtq-Qau-Y: | | | | | | Increased [...] istryMHC-1: | | | | | | OzltgqrtAZ24 stain | | | | | | [...] | + + + + + | [facility] | [address] | [place] [address] | | | PATHOLOGY | [place] | | | + + + + + documented in this encounter Visit Diagnoses Not on filedocumented in this encounter
--- OUTSIDE RECORDS SUMMARY | ~2020-04-20 | XMS | Encounter Summary ---
Demographics + + + | Address | [address] | | | [place] [address] | + + + | Home Phone [...] [place] | | | | | [address] | | + + + + + Care Team Providers + +------+ + | Care Real Estate Representative Name | Role | Phone | [...] + + | 03/07/ | Telephone | [facility] | Katharine Cardona PA-C | Results | | 2014 | | MEDICINE [place] | [address] [facility] | | | | | [address] | [place] [address] | | | | | [place], [place] | [phone] | | | | | [address] | | | | | | [phone] | | | +--------+ + + + [...] Miscellaneous Notes Telephone Encounter - Adrianne Horton, Sporting Goods Sales Associate - 03/11/2015 3:41 PM PDTCalled Pat and delivered her results. Patient verbalized good understanding. elephone Encounter - Adrianne Horton , Sporting Goods Sales Associate - 03/11/2015 8:40 AM PDTCall placed to [...] [place] | | | | | | [place] [address] | | | | | | [phone] | | | | | | | | +--------+---------+ + + + documented as of this encounter Visit Diagnoses Not on filedocumented in this encounter"
--- OUTSIDE RECORDS SUMMARY | ~2020-04-20 | XMS | Encounter Summary ---
Demographics + + + | Address | [address] | | | [place] [address] | + + + | Home Phone [...] [place], [place] | | | | | [address] | | + + + + + Care Team Providers + +------+ + | Care Carton Catcher Name | Role | Phone | + +------+ + PCP | Unavailable | + +------+ + Encounter Details +--------+ + + + + | Date | Type | Department | Care Team | Description | +--------+ + + + + | 12/24/ | Hospital | [facility] | | | | 1998 | Encounter | MED CTR XRAY [address] | | | | | | [place] | | | | | | [place] [address] | | | | | | [phone] | | | +--------+ + + + [...] | | | | | [place] [address] | | | | | | [phone] | | | | | | | | +--------+---------+ + + + documented as of this encounter Visit Diagnoses Not on filedocumented in this encounter"
--- OUTSIDE RECORDS SUMMARY | ~2020-04-20 | XMS | Encounter Summary ---
Demographics + + + | Address | [address] | | | [place] [address] | + + + | Home Phone [...] [place] | | | | | [address] | | + + + + + Care Team Providers + +------+ + | Care Welfare Case Worker Name | Role | Phone | [...] + + | 10/22/ | Telephone | [facility] | Susu Peralta, | Other | | 2019 | | CARDIOLOGY [place] Nath RN | | | | | [address] | | | | | | [place], [place] | | | | | | [address] | | | | | | [phone] | | | +--------+ + + + [...] | | | | | [place] [address] | | | | | | [phone] | | | | | | | | +--------+---------+ + + + documented as of this encounter Visit Diagnoses Not on filedocumented in this encounter"
--- OUTSIDE RECORDS SUMMARY | ~2020-04-20 | XMS | Encounter Summary ---
Demographics + + + | Address | [address] | | | [place] [address] | + + + | Home Phone [...] [place] | | | | | [address] | | + + + + + Care Team Providers + +------+ + | Care Minilab Operator Name | Role | Phone | + +------+ + | Basim Bolanos MD | PCP | | + +------+ + Encounter Details +--------+ + + + + | Date | Type | Department | Care Team | Description | +--------+ + + + + | 03/30/ | Hospital | [facility] | Tyrese Neely MD | | | 2012 | Encounter | MED CTR MP INTRA OP | [address], [place] | | | | | [address] | [address] [place], [place] | | | | | [place], [place] | [address] | | | | | [address] | | | | | | [phone] | | | +--------+ + + + [...] + + + +---------+ + + | Newcastle-3 Fatty | Take 1,000 mg by | [...] Neely MD - 03/30/2013 12:10 [place] [address] Patient Name: CINDY ARNDT Provider: Tyrese Neely MD Unit #: [id number] Location: [facility] : 1955 Patient Name: Cindy Arndt Gender: F Procedure Date: 03/30/2013 12:10 PM Date of : 1955 Age: 57 Admit Type: Outpatient Room: Endo Room 1 Note Status: Finalized Attending MD: Tyrese Neely MD Procedure: Upper GI endoscopy Indications: Epigastric abdominal pain Providers: Tyrese Neely MD, Vanesa Anne RN, Yesenia Downing, Hadoop Analyst, Guillermo Ortiz MD (Anesthesia Staff) Referring MD: [...] physician, the nurse, the anesthesiologist and the medical records technician. The procedure was verified in the [...] in this e ncounter Plan of Treatment +--------+---------+ + + + | Date | Type | Specialty | Care Team | Description | +--------+---------+ + + + | 04/24/ | Office | Cardiology | [facility] | | | 2019 | Visit | | CAR[address]INE [address] | | | | | | [address] | | | | | | [place] [address] | | | | | | [phone] | | | | | | | [...] | | BIOPSY | | | [facility] | | [...] + | [facility] | [address] | [place] | [phone] | | [facility] | | [address] | | | - LABORATORY | | | | + + + + + | [facility] | [address] | [place], [place] | | | [facility] | | [address] | | | - [...] BIOPSY | Negative for Urease | | [facility] | | | UREASE TEST | | [...] + + | Collect By: Nurse | [facility] | | | [facility] | | | - LABORATORY | + + + + + + + + | Performing | Address | City/State/Zipcode | Phone Number | | Organization | | | | + + + + + | [facility] | [address] | [place] | [phone] | | [facility] | | [address] | | | - LABORATORY | | | | + + + + + | [facility] | [address] | [place] | | | [facility] | | [address] [place] [address] | | | - LABORATORY | | | | + + + + + documented in this encounter Visit Diagnoses Not on filedocumented in this encounter"
--- OUTSIDE RECORDS SUMMARY | ~2020-04-20 | XMS | Encounter Summary ---
Demographics + + + | Address | [address] | | | [place] [address] | + + + | Home Phone [...] | [facility] | | | [...] [place] | | | | | [address] | | + + + + + Care Team Providers + +------+ + | Care Governor Assembler Hydraulic Name | Role | Phone | + [...] | SLEEP DISORDER [address] | [address] | | | | | [address] [place] | [place] | | | | | [place] [address] | [address] | | | | | [phone] | | | +--------+ + + + [...] PDTPat was last seen in our o [facility] on 04/30/2015. He did not cancel or [...] PA-C eleph one Encounter - Gail Cadet, Retirement Village Manager - 07/15/2016 8:37 AM PDTCalled to resched ule patient's no show appointment unable to contact all numbers are disconnected. Electronic ally signed by Gail Cadet Retirement Village Manager at 07/15/2016 8:37 AM PDTdocumented in this [...] [address] | | | | | | [place] [address] | | | | | | [phone] | | | | | | | | +--------+---------+ + + + documented as of this encounter Visit Diagnoses Not on filedocumented in this encounter"
--- OUTSIDE RECORDS SUMMARY | ~2020-04-20 | XMS | Encounter Summary ---
Demographics + + + | Address | [address] | | | [place] [address] | + + + | Home Phone [...] [place] | | | | | [address] | | + + + + + Care Team Providers + +------+ + | Care Awning Maker Name | Role | Phone | [...] + + | 12/17/ | Office | [facility] | Dora De La Torre | History of atrial | | 2020 | Visit | CARDIOLOGY [place] | [address] | fibrillation; Benign | | | | [address] | [address] | essential HTN; | | | | [address] | [place] [address] | History of | | | | [place], [place] | [phone] | hypothyroidism; | | | | [address] | | Stress | | | | [phone] | | hyperglycemia; | | | | | | History of sleep | | | | | | apnea; History of | | | | | | stroke; Obesity, | | | | | | Class III, BMI | | | | | | 40-49.9 (morbid | | | | | | obesity) ([facility]); Mild | | | | | | [...] of fatigue and shortness of breath. Her DCX3NT5 VASC score is 4 (stroke, HTN, gender) , and Dr. Peterson did not anticoagulate he r due to low incidence of atrial fib. Her current and previous testing and procedures are detailed below. She was seen in the emergency room on October 11, 2019 at [facility] and presented wi th paranoia feeling that knives were chasing her , so went to the emergency room so that she could feel safe and Had [facility] evaluation and discharged home Labs [...] 405 and [facility], and she was to be started on Abilify. She was seen again in the emergency room on October 19 and , [id number] for sim ilar complaints with increased delusions, [...] She has previously seen Dr. Garland in [place], and different provider in [place] when lived over there. She reports she [...] thirst or hunger. Psychiatric/Behavioral: Bipolar/Schizophrenia. Tx'd by [employer] Vaccines: Current on flu vaccine: 2019 Current on pneumonia vaccine:PPSV 23 05/29/2013 Habits/Social : Denies history of smoking. Denies EtOH use. Denies recreational or illici t drug use. Exercises sporadically. Lives in [place] . Outpatient Medications Prior to Visit Medication [...] Take by mouth. Blood Glucose Monitoring Suppl (PresenterNet VERIO FLEX SYSTEM) w/Device KIT by Does not ap ply route. budesonide-formoterol (SYMBICORT) 160-4.5 mcg/puff inhaler Inhale 2 puffs into the lung s 2 (two) times daily. calcium carbonate antacid (TUMS ULTRA 1000) 1000 MG CHEW Chew and swallow 1,000 mg 4 ti mes daily as needed. Cholecalciferol (VITAMIN D-3) [address] units CAPS Take 50,000 Units by mouth [...] chest discomfort, patient unable to walk on [employer]. Resting EKG normal sinus rhythm, arrhythmias ventricular [...] is less well-controlled LABS Labs: 12/26/2018: ( [facility] ER)CMP: Sodium 139, potassium 4.2, chloride 99, BUN 10, creatinine 0. 7, BNP 28. CBC: WBC 7.8, hemoglobin 14.3, hematocrit 42.7, platelets 214 Labs: 09/28/2019:( [facility] ER) CBC: WBC 7.8, hemoglobin 14.9, hematocrit 43.8, platelets 221. C MP: Sodium 132, potassium 4.2, chloride 95, AST 76, ALT 76, alk phos 134 Labs: 10/11/2019:( [facility] ER) CBC: WBC 6.7, RBC 4.97, hemoglobin 15.2, hematocrit 44.7, platel ets 200. CMP: Glucose 385, BUN 7, creatinine 0.62, GFR 97, sodium 131, potassium 4.1, chlor kelby 95, albumin 4.3, total bilirubin 0.6, AST 75, ALT 73, alk phos 144. Thyroid: TSH 4.27 Labs: 10/12/2020:( [facility] ER) CBC: WBC 7, RBC 4.93, hemoglobin 14.7, hematocrit 44.1, platele ts 186 normal UA CMP: Glucose 381, BUN 6, creatinine 0.63, GFR 95, sodium 133, potassium 3.8 , chloride 97, albumin 4.3, total bili 0.6, AST 62, ALT 75, alk phos 145 thyroid: TSH 3.07 Labs: 10/20/2019:( [facility] ER) CBC: WBC 7.1, RBC [...] in a prescription to her local pharmacy [facility] . I made no other changes to [...] continuity of care purp ose [place] [facility] Cardiology 12/17/2019 docume nted in this encounter [...] | | | | | | [place] [address] | | | | | | [phone] | | | | | | | [...]
--- OUTSIDE RECORDS SUMMARY | ~2020-04-20 | XMS | Encounter Summary ---
Demographics + + + | Address | [address] | | | [place] [address] | + + + | Home Phone [...] [place] | | | | | [address] | | + + + + + Care Team Providers + +------+ + | Care Drapery Hand Name | Role | Phone | [...] + + | 08/08/ | Telephone | [facility] | Ashley Chávez | Other (Questions | | 2019 | | CARDIOLOGY [place]ad, Computer Science Professor | about coverage. ) | | | | [address] | | | | | | [place] | | | | | | [address] | | | | | | [phone] | | | +--------+ + + + [...] Miscellaneous Notes Telephone Encounter - Ashley Chávez, Computer Science Professor - 08/08/2019 10:58 AM Seferino foster called and wanted to know if her monitor needed to be AUTHORIZED. I asked Danelle and she said that because she had medicare part A and B, it does not need kayode or auth. I told this information to the patient, patient stated understanding. JKASSIE:CLINICAL TRIAL ASSISTANT-AAMA. [facility] umented in this encounter [...] [address] | | | | | | [place] [address] | | | | | | [phone] | | | | | | | | +--------+---------+ + + + documented as of this encounter Visit Diagnoses Not on filedocumented in this encounter"
--- OUTSIDE RECORDS SUMMARY | ~2020-04-20 | XMS | Encounter Summary ---
Demographics + + + | Address | [address] | | | [place] [address] | + + + | Home Phone [...] [place], [place] | | | | | [address] | | + + + + + Care Team Providers + +------+ + | Care Immigration Lawyer Name | Role | Phone | + [...] | | | | | | [address] | | | | | | [place], [place] | | | | | | [address] | | | | | | [phone] | | | +--------+ + + + [...] | | | | | [place] [address] | | | | | | [phone] | | | | | | | | +--------+---------+ + + + documented as of this encounter Visit Diagnoses Not on filedocumented in this encounter"
--- OUTSIDE RECORDS SUMMARY | ~2020-04-20 | XMS | Encounter Summary ---
Demographics + + + | Address | [address] | | | [place] [address] | + + + | Home Phone [...] [place] | | | | | [address] | | + + + + + Care Team Providers + +------+ + | Care Mental Health Aides Teacher Name | Role | Phone | [...] [address] | [address] [place], [place] | Anxiety; Anemia; | | | | [place] | [address] | Irregular heartbeat; | | | | [address] | | Depression; | | | | [phone] | | Migraine; | | | | [...] [address] | | | | | | [place] [address] | | | | | | [phone] | | | | | | | [...]
--- OUTSIDE RECORDS SUMMARY | ~2020-04-20 | XMS | Encounter Summary ---
Demographics + + + | Address | [address] | | | [place] [address] | + + + | Home Phone [...] [place] | | | | | [address] | | + + + + + Care Team Providers + +------+ + | Care Family Support Specialist Name | Role | Phone | + +------+ + | Basim Bolanos MD | PCP | | + +------+ + Encounter Details +--------+ + + + + | Date | Type | Department | Care Team | Description | +--------+ + + + + | 04/18/ | Abstract | [facility] [place] | [facility], | | | 2012 | | GASTROENTEROLOGY | [place]O Thomas [address] | | | | | [address] | [address] | | | | | [address] [place], [place] | [place], [place] | | | | | [address] | [address] | | | | | [phone] | | | +--------+ + + + [...] | | | | [facility] [address] | | | | | | [phone] | | | | | | | | +--------+---------+ + + + documented as of this encounter Visit Diagnoses Not on filedocumented in this encounter"
--- OUTSIDE RECORDS SUMMARY | ~2020-04-20 | XMS | Encounter Summary ---
Demographics + + + | Address | [address] | | | [place] [address] | + + + | Home Phone [...] [place] | | | | | [address] | | + + + + + Care Team Providers + +------+ + | Care Social Work Msw Name | Role | Phone | + [...] + + | 02/27/ | Telephone | [facility] | Katharine Cardona PA-C | Appointment (New | | 2014 | | MEDICINE [address] | Patient) | | | | [address] [address], | [place] [address] | | | | | [place] [address] | [phone] | | | | | [phone] | | | +--------+ + + + [...] - 02/27/2015 12:11 PM PDTCall placed to Dvaid plascencia regarding her new patient paperwork. Cindy was informed that Dr. Fry and Katharine DEGROOT do not generally prescribe narcotic medications for patients. Those patients are re ferred to [facility]. Cindy stated that would be [...] | | 2019 | Visit | | [address]NE [address] | | | | | | [address] | | | | | | [place] [address] | | | | | | [phone] | | | | | | | | +--------+---------+ + + + documented as of this encounter Visit Diagnoses Not on filedocumented in this encounter"
--- OUTSIDE RECORDS SUMMARY | ~2020-04-20 | XMS | Encounter Summary ---
Demographics + + + | Address | [address] | | | [place] [address] | + + + | Home Phone [...] [place], [place] | | | | | [address] | | + + + + + Care Team Providers + +------+ + | Care Feed Mixer Helper Name | Role | Phone | + +------+ + PCP | Unavailable | + +------+ + Encounter Details +--------+ + + + + | Date | Type | Department | Care Team | Description | +--------+ + + + + | 02/24/ | Hospital | [facility] | | | | 1997 - | Encounter | MED CTR GENERIC PSY | | | | | | CONV DEPT [address] | | | | 02/26/ | | [address], | | | | 1997 | | [place] [address] | | | | | | [phone] | | | +--------+ + + + [...] | | | | | [place] [address] | | | | | | [phone] | | | | | | | | +--------+---------+ + + + documented as of this encounter Visit Diagnoses Not on filedocumented in this encounter"
--- OUTSIDE RECORDS SUMMARY | ~2020-04-20 | XMS | Encounter Summary ---
Demographics + + + | Address | [address] | | | [place] [address] | + + + | Home Phone [...] [place], [place] | | | | | [address] | | + + + + + Care Team Providers + +------+ + | Care Wick And Base Assembler Name | Role | Phone | + +------+ + PCP | Unavailable | + +------+ + Encounter Details +--------+ + + + + | Date | Type | Department | Care Team | Description | +--------+ + + + + | 09/24/ | Hospital | [facility] | | | | 1993 | Encounter | MED CTR LABORATORY | | | | | | [address] | | | | | | [place] | | | | | | [address] | | | | | | [phone] | | | +--------+ + + + [...] [place]ANT[place] | | | | | | [place] [address] | | | | | | [phone] | | | | | | | | +--------+---------+ + + + documented as of this encounter Visit Diagnoses Not on filedocumented in this encounter"
--- OUTSIDE RECORDS SUMMARY | ~2020-04-20 | XMS | Encounter Summary ---
Demographics + + + | Address | [address] | | | [place] [address] | + + + | Home Phone [...] [place], [place] | | | | | [address] | | + + + + + Care Team Providers + +------+ + | Care Etiquette Teacher Name | Role | Phone | + +------+ + PCP | Unavailable | + +------+ + Encounter Details +--------+ + + + + | Date | Type | Department | Care Team | Description | +--------+ + + + + | 09/24/ | Hospital | [facility] | | | | 1993 | Encounter | MED CTR LABORATORY | | | | | | [address] | | | | | | [place] | | | | | | [address] | | | | | | [phone] | | | +--------+ + + + [...] [place]ANTU | | | | | | [place] [address] | | | | | | [phone] | | | | | | | | +--------+---------+ + + + documented as of this encounter Visit Diagnoses Not on filedocumented in this encounter"
--- OUTSIDE RECORDS SUMMARY | ~2020-04-20 | XMS | Encounter Summary ---
Demographics + + + | Address | [address] | | | [place] [address] | + + + | Home Phone [...] [place] | | | | | [address] | | + + + + + Care Team Providers + +------+ + | Care Vocational Rehabilitation Technician Name | Role | Phone | [...] + + | 04/30/ | Office | [facility] | Russell Alfaro PA | ROGERS on CPAP (Primary | | 2015 | Visit | SLEEP DISORDER 401 | [address] | Dx) | | | | [address] | [place] | | | | | [place] [address] | [address] | | | | | [phone] | | | +--------+---------+ + + + [...] encounter Progress Notes Gail Cadet, Master of Level 3 Communications - 04/30/2015 11:12 AM PDTFormatting of this note might be khoi rivas from the original. 04/30/15 1100 [place] Depression Inventory-II Depression Score 9 - Minimal depression Insomnia Severity Index Insomnia Severity Index 13 [place] Sleepiness Scale Sitting and reading 3 Watching [...] appro priate paperwork. Thirty minutes were spent lrys-gp-heis, with the majority of time spent i [...] [place]U | | | | | | [place] [address] | | | | | | [phone] | | | | | | | | +--------+---------+ + + + documented as of this encounter Visit Diagnoses + + | Diagnosis | + + | ROGERS on CPAP - Primary Obstructive sleep apnea (adult) (pediatric) | + + documented in this encounter"
--- OUTSIDE RECORDS SUMMARY | ~2020-04-20 | XMS | Encounter Summary ---
Demographics + + + | Address | [address] | | | [place] [address] | + + + | Home Phone [...] [place] | | | | | [address] | | + + + + + Care Team Providers + +------+ + | Care Labeling Specialist Name | Role | Phone | [...] + + | 02/13/ | Office | [facility] | Dora De La Torre | History of atrial | | 2020 | Visit | CARDIOLOGY [place] | [address] | fibrillation | | | | [address] | [place] | (Primary Dx); New | | | | [address] | [place] [address] | onset left bundle | | | | [place] | [phone] | branch block (LBBB); | | | | [address] | | Benign essential | | | | [phone] | | HTN; History of | | [...] | | | | | | obesity) ([facility]) | +--------+---------+ + + + Social History [...] 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 Her [id number] VASC score is 4 (stroke, HTN, gender) [...] She has previously seen Dr. Garland in [place], and different sleep provider in [facility] when lived over there. 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 Psychiatric/Behavioral: Bipolar/Schizophrenia. Tx'd by A [employer] Act Vaccines: Current on flu vaccine: 2019 Current on pneumonia vaccine:PPSV 23 05/29/2013 Habits/Social : Denies history of smoking. Denies EtOH use. Denies recreational or illici t drug use. Exercises sporadically. Lives in [place] . Outpatient Medications Prior to Visit Medication [...] by mouth nightly. Blood Glucose Monitoring Suppl ([employer] VERIO FLEX SYSTEM) w/Device KIT by Does [...] discomfort, patient unable to walk on eriberto dmZipments. Resting EKG normal sinus rhythm, arrhythmias ventricular [...] nonspecific ST-T wave abnormality rate 82 bpm, HI 176 ms, QRS 80 ms, QTC 446 ms tracing personally reviewed by me EK12/17/2019: Sinus tachycardia, nonspecific ST wave abnormalities, rate 105 bpm, HI 196 ms, QRS 74 ms, QTC 430 ms, tracing personally reviewed by me, and compared to EKG performed in February 2019, rate is less well-controlled EK01/10/2020 (metoprolol XL 50 mg twice daily. Normal sinus rhythm, new left bundle bran ch block Rate 74 bpm, HI 204 ms, QRS 138 ms, QTC 488 [...] bundle branch block. Ra te 105 bpm, HI 184 ms, QRS 144 ms, QTC 489 ms, tracing personally reviewed by me, and compar ed to EKG performed in December , rate is less well-controlled LABS Labs: 12/26/2018: ( [facility])CMP: Sodium 139, potassium 4.2, chloride 99, BUN 10, creatinine 0. 7, BNP 28. CBC: WBC 7.8, hemoglobin 14.3, hematocrit 42.7, platelets 214 Labs: 09/28/2019:( [facility]) CBC: WBC 7.8, hemoglobin 14.9, hematocrit 43.8, platelets 221. C MP: Sodium 132, potassium 4.2, chloride 95, AST 76, ALT 76, alk phos 134 Labs: 10/11/2019:( [facility]) CBC: WBC 6.7, RBC 4.97, hemoglobin 15.2, hematocrit 44.7, platel ets 200. CMP: Glucose 385, BUN 7, creatinine 0.62, GFR 97, sodium 131, potassium 4.1, chlor kelby 95, albumin 4.3, total bilirubin 0.6, AST 75, ALT 73, alk phos 144. Thyroid: TSH 4.27 Labs: 10/12/2020:( [facility]) CBC: WBC 7, RBC 4.93, hemoglobin 14.7, hematocrit 44.1, platele ts 186 normal UA CMP: Glucose 381, BUN 6, creatinine 0.63, GFR 95, sodium 133, potassium 3.8 , chloride 97, albumin 4.3, total bili 0.6, AST 62, ALT 75, alk phos 145 thyroid: TSH 3.07 Labs: 10/20/2019:( [facility]) CBC: WBC 7.1, RBC 4.93, [...] reviewed her EKG and Echo with her personnel associate Dr. Peterson, who was in clin ic [...] Obesity, Class III, BMI 40-49.9 (morbid obesity) ([facility]) Orders Placed This Encounter Procedures ECG 12 lead The following portions of the patient's history were personally reviewed by me and updated as appropriate: EKG tracings, other specialty provider and PCP notes,any Hospital admission and discharge summaries, any ER records , current and previous cardiac testing and procedure reports and d emiila,medication bottles brought to visit today personally reviewed [...] BUCIO [facility] Cardiology 02/15/2020 docume nted in this encounter [...] [place] | | | | | | [place] [address] | | | | | | [phone] | | | | | | | [...] | | | | | | obesity) ([facility]) | | + +--------+ + + + [...] | | | | | DORA VELAZQUEZ ([id number]) on | | | | | | [...]
--- OUTSIDE RECORDS SUMMARY | ~2020-04-20 | XMS | Encounter Summary ---
Demographics + + + | Address | [address] | | | [place] [address] | + + + | Home Phone [...] [place], [place] | | | | | [address] | | + + + + + Care Team Providers + +------+ + | Care Rate Examiner Name | Role | Phone | + +------+ + PCP | Unavailable | + +------+ + Encounter Details +--------+ + + + + | Date | Type | Department | Care Team | Description | +--------+ + + + + | 04/16/ [facility] | Deon Gonzales | | | 2004 | Encounter | MED CTR SLEEP | MD La[address] | | | | | [place] [address] [facility] | | | | | [place], [place] | [place] [address] | | | | | [address] | [phone] | | | | | [phone] | | | +--------+ + + + [...] | | | | | [place] [address] | | | | | | [phone] | | | | | | | | +--------+---------+ + + + documented as of this encounter Visit Diagnoses Not on filedocumented in this encounter"
--- OUTSIDE RECORDS SUMMARY | ~2020-04-20 | XMS | Encounter Summary ---
Demographics + + + | Address | [address] | | | [place] [address] | + + + | Home Phone [...] [place] | | | | | [address] | | + + + + + Care Team Providers + +------+ + | Care Warehouse Shipping Supervisor Name | Role | Phone | [...] | | [address] | [place], [place] | | | | | [place], [place] | [address] | | | | | [address] | | | | | | [phone] | | | +--------+ + + + [...] | | | | | [place] [address] | | | | | | [phone] | | | | | | | [...] m/s LVOT VTI: 27.27 cm MV A [place]: 0.83 m/s | | | MV Dec [place]: 2.85 m/s2 MV DecT: 282.89 ms MV E Teodoro: 0.80 | | | m/s MV E/A Ratio: 0.96 E/E' Sept: 12.59 E' Lat: 0.08 m/s | | | E' Sept: 0.06 m/s RAP: 10 mmHg RV S': 0.11 m/s RVSP: | | | 27.96 mmHg TR maxP.96 mmHg TR Vmax: 2.11 m/s | | | Enroller: Authenticated by: Desiree Peterson MD Report Date/Time: | | | -- [id number]_0:31:1 | | + + + + + | Procedure Note | + + | Manohar Martinez Conversion - 06/14/2019 1:12 PM PDT Patient Name: Bibiana Arndt of | | : 1955 Performing Physician: Desiree [...] (A-L): 19.60 | | ml/m2LAAs A2C: 15.44 [id number] A-L A2C: 43.84 mlLAESV MOD A2C: 42.12 mlLALs A2C: | | 4.61 cmLAAs A4C: 14.18 dr0JSJXR A-L A4C: 38.73 mlLAESV MOD A4C: 37.04 mlLALs A4C: | | 4.41 cmRAAs: 12.15 if5NHUSF A-L: 28.54 mlRAESV MOD: 28.66 mlRALs: 4.39 | | cmTAPSE: 2.42 cmAV Env.Ti: 293.94 msAV maxP.18 mmHgAV meanP.09 mmHgAV | | Vmax: 1.88 m/Eddie Vmean: 1.25 m/Eddie VTI: 36.84 cmAVA Vmax: 2.06 cm2AVA (VTI): | | 2.24 mz1EHOO Vmax: 0.00 cm2/m2AVAI (VTI): 0.00 cm2/m2LVOT Env.Ti: 299.59 msLVOT | | maxP.52 mmHgLVOT meanP.65 mmHgLVSI Dopp: 38.55 ml/m2LVSV Dopp: 82.89 | | mlLVOT Vmax: 1.27 m/sLVOT Vmean: 0.91 m/sLVOT VTI: 27.27 cmMV A Teodoro: 0.83 m/sMV | | Dec [place]: 2.85 m/s2MV DecT: 282.89 msMV E Teodoro: 0.80 m/sMV E/A Ratio: 0.96E/E' | | Sept: 12.59E' Lat: 0.08 m/sE' Sept: 0.06 m/sRAP: 10 mmHgRV S': 0.11 m/sRVSP: | | 27.96 mmHgTR maxP.96 mmHgTR Vmax: 2.11 m/s Enroller:Authenticated by: | | Desiree Peterson MDReport Date/Time: -- [id number]_1:31:1 IMPRESSION: 1. Overall left | | ventricular [...] A Teodoro: 0.83 m/s | |MV Dec [place]: 2.85 m/s2 | |MV DecT: 282.89 ms | |MV E Teodoro: 0.80 m/s | |MV E/A Ratio: 0.96 | |E/E' Sept: 12.59 | |E' Lat: 0.08 m/s | |E' Sept: 0.06 m/s | |RAP: 10 mmHg | |RV S': 0.11 m/s | |RVSP: 27.96 mmHg | |TR maxP.96 mmHg | |TR Vmax: 2.11 m/s | | | |Enroller: | |Authenticated by: Desiree Peterson MD | |Report Date/Time: -- 25_[id number]_2:31:1 | | | |IMPRESSION: | |1. Overall [...]
--- OUTSIDE RECORDS SUMMARY | ~2020-04-20 | XMS | Encounter Summary ---
Demographics + + + | Address | [address] | | | [place] [address] | + + + | Home Phone [...] [place], [place] | | | | | [address] | | + + + + + Care Team Providers + +------+ + | Care Post Partum Nurse Name | Role | Phone | + +------+ + PCP | Unavailable | + +------+ + Encounter Details +--------+ + + + + | Date | Type | Department | Care Team | Description | +--------+ + + + + | 05/29/ | Hospital | [facility] | | | | 1991 | Encounter | MED CTR LABORATORY | | | | | | [address] | | | | | | [place] | | | | | | [address] | | | | | | [phone] | | | +--------+ + + + [...] | 04/24/ | Office | Cardiology | Droa De La Torre | | | 2019 | Visit | | [address] | | | | | | [place] | | | | | | [place] [address] | | | | | | [phone] | | | | | | | | +--------+---------+ + + + documented as of this encounter Visit Diagnoses Not on filedocumented in this encounter"
--- OUTSIDE RECORDS SUMMARY | ~2020-04-20 | XMS | Encounter Summary ---
Demographics + + + | Address | [address] | | | [place] [address] | + + + | Home Phone [...] [place] | | | | | [address] | | + + + + + Care Team Providers + +------+ + | Care Sports Book Board Attendant Name | Role | Phone | [...] [id number] | | | | | | [place], [place] | | | | | | [address] | | | | | | [phone] | | | +--------+ + + + [...] + + + + + | [facility] | [address] | [place] [address] | | | PATHOLOGY | [address] [...] Re | | | | | | 491428 | | | | + + + + + + + + | Specimen | + + | | + + + + + + + | Performing | Address | City/State/Zipcode | Phone Number | | Organization | | | | + + + + + | [facility] | [address] | [place] [address] | | | PATHOLOGY | [address] [...] Re | | | | | | 072716 | | | | + + + + + + + + | Specimen | + + | | + + + + + + + | Performing | Address | City/State/Zipcode | Phone Number | | Organization | | | | + + + + + | [facility] | [address] | [place] [address] | | | PATHOLOGY | [address] [...] Re | | | | | | [address] | | | | + + + + + + + + | Specimen | + + | | + + + + + + + | Performing | Address | City/State/Zipcode | Phone Number | | Organization | | | | + + + + + | [facility] | [address] | [place] [address] | | | PATHOLOGY | [address] [...] Re | | | | | | 714065 | | | | + + + + + + + + | Specimen | + + | | + + + + + + + | Performing | Address | City/State/Zipcode | Phone Number | | Organization | | | | + + + + + | [facility] | [address] | [place] [address] | | | PATHOLOGY | [address] | | | + + + + + documented in this encounter Visit Diagnoses Not on filedocumented in this encounter"
--- OUTSIDE RECORDS SUMMARY | ~2020-04-20 | XMS | Encounter Summary ---
Demographics + + + | Address | [address] | | | [place] [address] | + + + | Home Phone [...] [place] | | | | | [address] | | + + + + + Care Team Providers + +------+ + | Care Behavioral Scientist Name | Role | Phone | + +------+ + | Natalee Andersen NP | PCP | | + +------+ + Encounter Details +--------+ + + + + | Date | Type | Department | Care Team | Description | +--------+ + + + + | 07/06/ | Hospital | [facility] | Latricia Feliciano | | | 2014 | Encounter | MED CTR ACUTE | D, PT [address] | | | | | PHYSICAL THERAPY | [place] | | | | | [address] | [address] | | | | | [place] [address] | | | | | | [phone] | | | +--------+ + + + [...] + + + +---------+ + + | [place]-3 Fatty | Take 1,000 mg by | [...] [address] | | | | | | [place] [address] | | | | | | [phone] | | | | | | | | +--------+---------+ + + + documented as of this encounter Visit Diagnoses Not on filedocumented in this encounter"
--- OUTSIDE RECORDS SUMMARY | ~2020-04-20 | XMS | Encounter Summary ---
Demographics + + + | Address | [address] | | | [place] [address] | + + + | Home Phone [...] [place] | | | | | [address] | | + + + + + Care Team Providers + +------+ + | Care Biomass Production Manager Name | Role | Phone | [...] + + | 09/10/ | Documentati | [facility] | Katharine Moncada, | Other (urgent | | 2019 | on | CARDIOLOGY [place] | Technologist | report) | | | | [address] | | | | | | [place] | | | | | | [address] | | | | | | [phone] | | | +--------+ + + + [...] [place] | | | | | | [place] [address] | | | | | | [phone] | | | | | | | | +--------+---------+ + + + documented as of this encounter Visit Diagnoses Not on filedocumented in this encounter"
--- OUTSIDE RECORDS SUMMARY | ~2020-04-20 | XMS | Encounter Summary ---
Demographics + + + | Address | [address] | | | [place] [address] | + + + | Home Phone [...] [place] | | | | | [address] | | + + + + + Care Team Providers + +------+ + | Care Matrix Drier Tender Name | Role | Phone | [...] | Documentati | [facility] | Katharien Moncada, | Other (urgent | | 2019 | on | CARDIOLOGY [place] | Technologist | report) | | | | [address] | | | | | | [place] | | | | | | [address] | | | | | | [phone] | | | +--------+ + + + [...] [place] | | | | | | [place] [address] | | | | | | [phone] | | | | | | | | +--------+---------+ + + + documented as of this encounter Visit Diagnoses Not on filedocumented in this encounter"
--- OUTSIDE RECORDS SUMMARY | ~2020-04-20 | XMS | Encounter Summary ---
Demographics + + + | Address | [address] | | | [place] [address] | + + + | Home Phone [...] [place] | | | | | [address] | | + + + + + Care Team Providers + +------+ + | Care Caterpillar Operator Name | Role | Phone | [...] + + | 02/27/ | Telephone | [facility] | Katharine Cardona PA-C | Appointment (New | | 2014 | | MEDICINE [address] | Patient) | | | | [place], | [place] [address] | | | | | [place] [address] | [phone] | | | | | [phone] | | | +--------+ + + + [...] patients. Those patients are re ferred to [facility]. Cindy stated that would be [...] [place] | | | | | | [place] [address] | | | | | | [phone] | | | | | | | | +--------+---------+ + + + documented as of this encounter Visit Diagnoses Not on filedocumented in this encounter"
--- OUTSIDE RECORDS SUMMARY | ~2020-04-20 | XMS | Encounter Summary ---
Demographics + + + | Address | [address] | | | [place] [address] | + + + | Home Phone [...] [place], [place] | | | | | [address] | | + + + + + Care Team Providers + +------+ + | Care Filament Welder Name | Role | Phone | + +------+ + PCP | Unavailable | + +------+ + Encounter Details +--------+ + + + + | Date | Type | Department | Care Team | Description | +--------+ + + + + | 05/29/ | Hospital | [facility] | | | | 1991 | Encounter | MED CTR LABORATORY | | | | | | [address] | | | | | | [place] | | | | | | [address] | | | | | | [phone] | | | +--------+ + + + [...] [place] | | | | | | [place] [address] | | | | | | [phone] | | | | | | | | +--------+---------+ + + + documented as of this encounter Visit Diagnoses Not on filedocumented in this encounter"
--- OUTSIDE RECORDS SUMMARY | ~2020-04-20 | XMS | Encounter Summary ---
Demographics + + + | Address | [address] | | | [place] [address] | + + + | Home Phone [...] [place] | | | | | [address] | | + + + + + Care Team Providers + +------+ + | Care Jewel Bearing Polisher Name | Role | Phone | [...] + + | 08/20/ | Documentati | [facility] | Katharine Moncada, | Other (urgent | | 2019 | on | CARDIOLOGY [place] | Technologist | report) | | | | [address] | | | | | | [place] | | | | | | [address] | | | | | | [phone] | | | +--------+ + + + [...] [address] | | | | | | [place] [address] | | | | | | [phone] | | | | | | | | +--------+---------+ + + + documented as of this encounter Visit Diagnoses Not on filedocumented in this encounter"
--- OUTSIDE RECORDS SUMMARY | ~2020-04-20 | XMS | Encounter Summary ---
Demographics + + + | Address | [address] | | | [place] [address] | + + + | Home Phone [...] [place] | | | | | [address] | | + + + + + Care Team Providers + +------+ + | Care Hand Shaker Name | Role | Phone | + +------+ + | Basim Bolanos MD | PCP | | + +------+ + Encounter Details +--------+ + + + + | Date | Type | Department | Care Team | Description | +--------+ + + + + | 03/01/ | Abstract | [facility] [place] | [facility], | | | 2012 | | GASTROENTEROLOGY | [place]O [address] | | | | | [address] | [address] | | | | | [address] [place], [place] | [place], [place] | | | | | [address] | [address] | | | | | [phone] | | | +--------+ + + + [...] | | 2020 | Visit | | [address] | | | | | | [address] | | | | | | [place] [address] | | | | | | [phone] | | | | | | | | +--------+---------+ + + + documented as of this encounter Visit Diagnoses Not on filedocumented in this encounter"
--- OUTSIDE RECORDS SUMMARY | ~2020-04-20 | XMS | Encounter Summary ---
Demographics + + + | Address | [address] | | | [place] [address] | + + + | Home Phone [...] [place] | | | | | [address] | | + + + + + [...] | | | | | | | [address] | | | | | | | Phone: | | | | | | | [phone] | | | | | | | Fax: | | | | | | | [phone] | | +--------+ + + + + + Reason for Visit + + + | Reason | Comments | + + + | Follow-up | 3 mo po | + + + Encounter Details +--------+---------+ + + + | Date | Type | Department | Care Team | Description | +--------+---------+ + + + | 09/27/ | Office | [facility] | Frandy Teresa, | Lumbar spondylosis | | 2013 | Visit | NEUROSURGERY [address] | DO [address] | (Primary Dx); S/P | | | | [address] | [address] [place], [place] | lumbar fusion | | | | [place], [place] | [address] | | | | | [address] | | | | | | [phone] | | | +--------+---------+ + + + [...] [facility], [address] [place] [address] FAX: NEUROSURGERY FOLLOW-UP CHIEF COMPLAINT: Chief Complaint [...] Laterality: N/A; Surgeon: Frandy castellanos DO; Location: [facility] MAIN OR CURRENT MEDICATIONS: Current Outpatient [...] Take 15 mg by mouth nightl y. [place]-3 Fatty Acids (FISH OIL CONCENTRATE) 1000 MG [...] encounter Miscellaneous Notes Miscellaneous - [facility] - 09/27/2014 12:00 AM PST documented in [...] [address] | | | | | | [place] [address] | | | | | | [phone] | | | | | | | [...]
--- OUTSIDE RECORDS SUMMARY | ~2020-04-20 | XMS | Encounter Summary ---
Demographics + + + | Address | [address] | | | [place] [address] | + + + | Home Phone [...] [place] | | | | | [address] | | + + + + + Care Team Providers + +------+ + | Care Rn Imaging Name | Role | Phone | + [...] | | [address], | [place] [address] | | | | | [place] [address] | [phone] | | | | | [phone] | | | +--------+--------+ + + + [...] [address] | | | | | | [place] [address] | | | | | | [phone] | | | | | | | | +--------+---------+ + + + documented as of this encounter Visit Diagnoses + + | Diagnosis | + + | Essential hypertension - Primary Unspecified essential hypertension | + + documented in this encounter"
--- OUTSIDE RECORDS SUMMARY | ~2020-04-20 | XMS | Encounter Summary ---
Demographics + + + | Address | [address] | | | [place] [address] | + + + | Home Phone [...] [place], [place] | | | | | [address] | | + + + + + Care Team Providers + +------+ + | Care Pharmacy Technician Program Director Name | Role | Phone | + +------+ + PCP | Unavailable | + +------+ + Encounter Details +--------+ + + + + | Date | Type | Department | Care Team | Description | +--------+ + + + + | 02/02/ | Hospital | [facility] | | | | 1997 - | Encounter | [facility] | | | | | | CONV DEPT [address] | | | | 02/05/ | | [place], | | | | 1997 | | [place] [address] | | | | | | [phone] | | | +--------+ + + + [...] | | | | | [place] [address] | | | | | | [phone] | | | | | | | | +--------+---------+ + + + documented as of this encounter Visit Diagnoses Not on filedocumented in this encounter"
--- OUTSIDE RECORDS SUMMARY | ~2020-04-20 | XMS | Encounter Summary ---
Demographics + + + | Address | [address] | | | [place] [address] | + + + | Home Phone [...] [place] | | | | | [address] | | + + + + + Care Team Providers + +------+ + | Care Residential Therapist Name | Role | Phone | [...] | 02/01/ | Telephone | [facility] | Frandy Teresa, | Imaging Only | | 2019 | | NEUROSURGERY [address] | DO [address] | | | | | [address] | [address] [place], [place] | | | | | [place], [place] | [id number] | | | | | [address] | | | | | | [phone] | | | +--------+ + + + [...] CANTU | | | | | | [place] [address] | | | | | | [phone] | | | | | | | | +--------+---------+ + + + documented as of this encounter Visit Diagnoses Not on filedocumented in this encounter"
--- OUTSIDE RECORDS SUMMARY | ~2020-04-20 | XMS | Encounter Summary ---
Demographics + + + | Address | [address] | | | [place] [address] | + + + | Home Phone [...] [place] | | | | | [address] | | + + + + + Care Team Providers + +------+ + | Care Firer Tunnel Kiln Name | Role | Phone | + [...] | SLEEP DISORDER 401 | [address] | | | | | [address] [place] | [place] | | | | | [place] [address] | [address] | | | | | [phone] | | | +--------+ + + + [...] PDTPat was last seen in our [facility] on [facility]. He did not [...] PA-C eleph one Encounter - Gail Cadet, Wire Lather - 07/15/2016 8:37 AM PDTCalled to resched ule patient's no show appointment unable to contact all numbers are disconnected. Electronic ally signed by Gail Cadet Wire Lather at 07/15/2016 8:37 AM PDTdocumented in this [...] CANTU | | | | | | [place] [address] | | | | | | [phone] | | | | | | | | +--------+---------+ + + + documented as of this encounter Visit Diagnoses Not on filedocumented in this encounter"
--- OUTSIDE RECORDS SUMMARY | ~2020-04-20 | XMS | Encounter Summary ---
Demographics + + + | Address | [address] [facility] [address] | | | [place] [address] | + + + | Home Phone [...] [place] | | | | | [address] | | + + + + + Care Team Providers + +------+ + | Care Radio Presenter Name | Role | Phone | + [...] | Transcriptions | + + | Interface, Mining Teacher In - 10/24/2006 3:09 AM PST | | [facility] | | Road [place], [place] [address] Leroy | | [facility] CenterOPERATION RECORDMed Rec No.: [id number] Date: [...]
--- OUTSIDE RECORDS SUMMARY | ~2020-04-20 | XMS | Encounter Summary ---
Demographics + + + | Address | [address] | | | [place] [address] | + + + | Home Phone [...] [place] | | | | | [address] | | + + + + + Care Team Providers + +------+ + | Care Home Economics Expert Name | Role | Phone | [...] + + | 08/15/ | Documentati | [facility] | Katharine Moncada, | Other (urgent | | 2019 | on | CARDIOLOGY [place] | Technologist | report) | | | | [address] | | | | | | [place] | | | | | | [address] | | | | | | [phone] | | | +--------+ + + + [...] CANTU | | | | | | [place] [address] | | | | | | [phone] | | | | | | | | +--------+---------+ + + + documented as of this encounter Visit Diagnoses Not on filedocumented in this encounter"
--- OUTSIDE RECORDS SUMMARY | ~2020-04-20 | XMS | Encounter Summary ---
Demographics + + + | Address | [address] | | | [place] [address] | + + + | Home Phone [...] [place] | | | | | [address] | | + + + + + Care Team Providers + +------+ + | Care Project Accountant Name | Role | Phone | [...] | | [address] | [place], [place] | | | | | [place], [place] | [address] | | | | | [address] | | | | | | [phone] | | | +--------+ + + + [...] | | | | | [place] [address] | | | | | | [phone] | | | | | | | [...] 0.83 m/s | | | MV Dec [place]: 2.85 m/s2 MV DecT: 282.89 ms MV E Teodoro: 0.80 | | | m/s MV E/A Ratio: 0.96 E/E' Sept: 12.59 E' Lat: 0.08 m/s | | | E' Sept: 0.06 m/s RAP: 10 mmHg RV S': 0.11 m/s RVSP: | | | 27.96 mmHg TR maxP.96 mmHg TR Vmax: 2.11 m/s | | | Snubber: Authenticated by: Desiree Peterson MD Report Date/Time: | | | -- [id number]:[id number] | | + + + + + [...] (A-L): 19.60 | | ml/m2LAAs A2C: 15.44 [id number] A-L A2C: 43.84 mlLAESV MOD A2C: 42.12 mlLALs A2C: | | 4.61 cmLAAs A4C: 14.18 [id number] A-L A4C: 38.73 mlLAESV MOD A4C: 37.04 mlLALs A4C: | | 4.41 cmRAAs: 12.15 mb5SEQIN A-L: 28.54 mlRAESV MOD: 28.66 mlRALs: 4.39 | | cmTAPSE: 2.42 cmAV Env.Ti: 293.94 msAV maxP.18 mmHgAV meanP.09 mmHgAV | | Vmax: 1.88 m/Eddie Vmean: 1.25 m/Eddie VTI: 36.84 cmAVA Vmax: 2.06 cm2AVA (VTI): | | 2.24 dt4WPOG Vmax: 0.00 cm2/m2AVAI (VTI): 0.00 cm2/m2LVOT Env.Ti: 299.59 msLVOT | | maxP.52 mmHgLVOT meanP.65 mmHgLVSI Dopp: 38.55 ml/m2LVSV Dopp: 82.89 | | mlLVOT Vmax: 1.27 m/sLVOT Vmean: 0.91 m/sLVOT VTI: 27.27 cmMV A Teodoro: 0.83 m/sMV | | Dec [place]: 2.85 m/s2MV DecT: 282.89 msMV E [place]: 0.80 m/sMV E/A Ratio: 0.96E/E' | | Sept: 12.59E' Lat: 0.08 m/sE' Sept: 0.06 m/sRAP: 10 mmHgRV S': 0.11 m/sRVSP: | | 27.96 mmHgTR maxP.96 mmHgTR Vmax: 2.11 m/s Snubber:Authenticated by: | | Desiree Peterson MDReport Date/Time: -- [id number]:[id number] IMPRESSION: 1. Overall left | | ventricular [...] A Teodoro: 0.83 m/s | |MV Dec [place]: 2.85 m/s2 | |MV DecT: 282.89 ms | |MV E Te[place]: 0.80 m/s | |MV E/A Ratio: 0.96 | |E/E' Sept: 12.59 | |E' Lat: 0.08 m/s | |E' Sept: 0.06 m/s | |RAP: 10 mmHg | |RV S': 0.11 m/s | |RVSP: 27.96 mmHg | |TR maxP.96 mmHg | |TR Vmax: 2.11 m/s | | | |Snubber: | |Authenticated by: Desiree Peterson MD | |Report Date/Time: -- [id number]:31:1 | | | |IMPRESSION: | |1. Overall [...]
--- OUTSIDE RECORDS SUMMARY | ~2020-04-20 | XMS | Encounter Summary ---
Demographics + + + | Address | [address] [address] [facility] [address] | | | [place] [address] | + + + | Home Phone [...] + + + | Author | [facility] | + + + | Organization | [facility] | + + + | Address | Unknown | + + + | Phone | Unavailable | + + + Support + + + + + | Name | Relationship | Address | Phone | + + + + + | Kelsy Bautista | ECON | [address] | | | | | [place] | | | | | [address] | | + + + + + Care Team Providers + +------+ + | Care Front Of House Manager Name | Role | Phone | [...] Clinic | | | | | | [facility] [address] | | | | | | [place], [place] | | | | | | [address] | | | | | | [phone] | | | +--------+ + + + [...] as of this encounter Progress Notes Interface, Delivery Tech In - 12/11/2006 5:03 AM [facility] DATE: 07/03/97 INFECTIOUS DISEASE CLINIC: [...]
--- OUTSIDE RECORDS SUMMARY | ~2020-04-20 | XMS | Encounter Summary ---
Demographics + + + | Address | [address] | | | [place] [address] | + + + | Home Phone [...] [place] | | | | | [address] | | + + + + + Care Team Providers + +------+ + | Care Soft Iron Inspector Name | Role | Phone | [...] [address] | [address] [place], [place] | Hypothyroidism; | | | | [place], [place] | [address] | GERD; BACK PAIN, | | | | [address] | | LUMBAR, WITH | | | | [phone] | | RADICULOPATHY; | | | | [...] | | | | | [place] [address] | | | | | | [phone] | | | | | | | [...]
--- OUTSIDE RECORDS SUMMARY | ~2020-04-20 | XMS | Encounter Summary ---
Demographics + + + | Address | [address] | | | [place] [address] | + + + | Home Phone [...] [place] | | | | | [address] | | + + + + + Care Team Providers + +------+ + | Care Adjunct Trainer Name | Role | Phone | [...] + + | 07/06/ | Emergency | [facility] | Yunior Sherman, | Chest pain, | | 2014 | | [facility] EM[facility]Y | MD [address] | unspecified chest | | | | CENTER [address] | [place], [place] | pain type (Primary | | | | [place], [place] | [address] | Dx) | | | | [address] | | | | | | [phone] | | | +--------+ + + + [...] sent through Care Everywhere.CHEST PAIN, NON CARDIAC (UPPER SORBIAN)documented in this encounter Medications at Time of [...] 0 | | | | (VITAMIN D-3) [address] | mouth Once a week. | | [...] | | | | | | | ([facility]) | | | | | [...] + + + +---------+ + + | Joliet-3 Fatty | Take 1,000 mg by | [...] Laterality: N/A; Surgeon: Frandy castellanos DO; Location: [facility] MAIN OR Cardiac catherization CURRENT [...] mg by mouth Daily. CHOLECALCIFEROL (VITAMIN D-3) 26514 UNITS CAPS Take 50,000 Units by mouth [...] pain. She was recently discharged from a [facility] facility. She's had more than 24 hours [...] ed in this encounter Plan of Treatment +--------+---------+ [...] | | | | | [place] [address] | | | | | | [phone] | | | | | | | [...] | Top Tube | | | [facility] | | [...] [address] | [place] | [phone] | | [facility] | | [address] | | | - LABORATORY | | [...] Quantitativ | quantitative D-Dimer | | [facility] | | | e | assay has [...] [address] | [place] | [phone] | | [facility] | | [address] | | | - LABORATORY | | [...] [address] | [place] | [phone] | | [facility] | | [address] | | | - LABORATORY | | [...] not | >60Comment: GLOMERULAR | >=60 | [facility] | | | | FILTRATION | mL/min/1.73m2 | [facility] | | | TAIWANESE | RATE,ESTIMATED | | MEDICAL | | | | mL/min/1.37w0Wkal than | | CENTER - | | [...] + | [address] | [address] | [place] | [phone] | | [facility] | | [address] | | | - LABORATORY | | [...] | | | | | M/uL | [facility] | | | | | | MEDICAL | | | | | | CENTER - | | | | | | LABORATORY | | + +-------+ + + + | Hemoglobin | 13.9 | 11.5 - 16.0 | [facility] | | | | | g/dL | [facility] | | | | [...] | MPV | 8.3 | fL | [facility] | | | | | [...] [address] | [place] | [phone] | | [facility] | | [address] | | | - LABORATORY | | [...] | | | | MD MANSI, LACEY ([id number]) | | | | | | on [...]
--- OUTSIDE RECORDS SUMMARY | ~2020-04-20 | XMS | Encounter Summary ---
Demographics + + + | Address | [address] | | | [place] [address] | + + + | Home Phone [...] [place] | | | | | [address] | | + + + + + Care Team Providers + +------+ + | Care Food And Drug Inspector Name | Role | Phone | [...] + + | 08/20/ | Documentati | [facility] | Katharine Moncada, | Other (urgent | | 2019 | on | CARDIOLOGY [place] | Technologist | report) | | | | [address] | | | | | | [place] | | | | | | [address] | | | | | | [phone] | | | +--------+ + + + [...] | | | | | | [place] [address] | | | | | | [phone] | | | | | | | | +--------+---------+ + + + documented as of this encounter Visit Diagnoses Not on filedocumented in this encounter"
--- OUTSIDE RECORDS SUMMARY | ~2020-04-20 | XMS | Encounter Summary ---
Demographics + + + | Address | [address] | | | [place] [address] | + + + | Home Phone [...] [place], [place] | | | | | [address] | | + + + + + Care Team Providers + +------+ + | Care Code Enforcement Inspector Name | Role | Phone | + +------+ + PCP | Unavailable | + +------+ + Encounter Details +--------+ + + + + | Date | Type | Department | Care Team | Description | +--------+ + + + + | 02/02/ | Hospital | [facility] | Serafin Bautista | | | 2011 | Encounter | MED CTR XRAY [address] | T, [address] | | | | | [place] | [place] | | | | | [place] [address] | [address] | | | | | [phone] | | | +--------+ + + + [...] CANTU | | | | | | [place] [address] | | | | | | [phone] | | | | | | | [...] [facility] Diagnostic Imaging Department | [facility] | | [address] [facility] | [facility] | | PROCEDURE: EPIDURAL STEROID | DIA [...] Transcribed Date/Time: | | | 02/03/2012 18:45 Motion Picture Camera Operator: MAHIN <Electronically Signed | | | by Serafin Bautista MD> 02/14/12 0916 | | + + + + + | Procedure Note | + + | Juan, Rad Conversion - 11/30/2013 5:06 PM [facility] | | Diagnostic Imaging Department | | [address] [facility] [place] | | | | | | [...] | Transcribed Date/Time: 02/03/2012 18:45 | | Motion Picture Camera Operator: | | <Electronically Signed by Serafin Bautista MD> 02/14/12 0916 | + + + +---------+ + + | Performing | Address | City/State/[facility] | Phone Number | | Organization | | | | + +---------+ + + | [place] | | | | | [facility] | | | | + +---------+ + + documented in this encounter Visit Diagnoses Not on filedocumented in this encounter"
--- OUTSIDE RECORDS SUMMARY | ~2020-04-20 | XMS | Encounter Summary ---
Demographics + + + | Address | [address] | | | [place] [address] | + + + | Home Phone [...] [place] | | | | | [address] | | + + + + + Care Team Providers + +------+ + | Care Laser Engineer Name | Role | Phone | [...] + + | 07/24/ | Telephone | [facility] | Ashley Chávez | Other (Patient is | | 2018 | | CARDIOLOGY [place] Abad, Administrative Support Clerk | worried about paying | | | | [address] | | for monitor. ) | | | | [place] | | | | | | [address] | | | | | | [phone] | | | +--------+ + + + [...] Miscellaneous Notes Telephone Encounter - Ashley Chávez, Administrative Support Clerk - 07/24/2019 11:13 AM Seferino t says [...] gals to see what can be done. JDW:ONLINE PROJECT MANAGER-AAMA. [facility] umented in this encounter Plan [...] CANTU | | | | | | [place] [address] | | | | | | [phone] | | | | | | | | +--------+---------+ + + + documented as of this encounter Visit Diagnoses Not on filedocumented in this encounter"
--- OUTSIDE RECORDS SUMMARY | ~2020-04-20 | XMS | Encounter Summary ---
Demographics + + + | Address | [address] | | | [place] [address] | + + + | Home Phone [...] [place] | | | | | [address] | | + + + + + Care Team Providers + +------+ + | Care Paster Hat Lining Name | Role | Phone | + [...] | Frandy Simons DO | [address] | | | | | of skin | [address] | [place], | | | | | sensation | [address] | [place] | | | | | Arthrodesis | [place], [place] | [address] | | | | | status Left | [address] | Phone: | | | | | leg | Phone: | [phone] | | | | | weakness | [phone] | Fax: | | | | | Procedures | Fax: | [phone] | | | | | MRI Lumbar | [phone] | | | | | | Spine [...] | Frandy Simons DO | [address] | | | | | of skin | [address] | [place], | | | | | sensation | [address] | [place] | | | | | Arthrodesis | [place] | [address] | | | | | status Left | [address] | Phone: | | | | | leg | Phone: | [phone] | | | | | weakness | [phone] | Fax: | | | | | Procedures | Fax: | [phone] | | | | | MRI Lumbar | [phone] | | | | | | Spine wo | | | | | | | Contrast | | | +--------+--------+ + + + + Encounter Details +--------+ + + + + | Date | Type | Department | Care Team | Description | +--------+ + + + + | 08/19/ | Hospital | [facility] | Frandy Teresa, | Status post lumbar | | 2013 | Encounter | MED CTR MRI [address] | DO [address] | spinal fusion; Left | | | | [place], | [address] [place] | leg numbness; Left | | | | [place] [address] | [address] | leg weakness | | | | [phone] | | | +--------+ + + + [...] + + + +---------+ + + | Bighorn-3 Fatty | Take 1,000 mg by | [...] | | | | | | [place] [address] | | | | | | [phone] | | | | | | | [...] the round structure with high T1 and J4llaopu in the right L3 vertebral | | [...] + | MISCELLANEOUS LAB | | | [phone] | + +---------+ + + | MISCELANIOUS LAB | | | [phone] | + +---------+ + + documented in [...]
--- OUTSIDE RECORDS SUMMARY | ~2020-04-20 | XMS | Encounter Summary ---
Demographics + + + | Address | [address] | | | [place] [address] | + + + | Home Phone [...] [place], [place] | | | | | [address] | | + + + + + Care Team Providers + +------+ + | Care Cartridge Loader Name | Role | Phone | + +------+ + PCP | Unavailable | + +------+ + Encounter Details +--------+ + + + + | Date | Type | Department | Care Team | Description | +--------+ + + + + | 07/23/ | Hospital | [facility] | | | | 1992 - | Encounter | MED CTR GENERIC PSY | | | | | | CONV DEPT [address] | | | | 07/28/ | | [place], | | | | 1992 | | [place] [address] | | | | | | [phone] | | | +--------+ + + + [...] | | | | | [place] [address] | | | | | | [phone] | | | | | | | | +--------+---------+ + + + documented as of this encounter Visit Diagnoses Not on filedocumented in this encounter"
--- OUTSIDE RECORDS SUMMARY | ~2020-04-20 | XMS | Encounter Summary ---
Demographics + + + | Address | [address] | | | [place] [address] | + + + | Home Phone [...] [place], [place] | | | | | [address] | | + + + + + Care Team Providers + +------+ + | Care Power Electronics Engineer Name | Role | Phone | + +------+ + PCP | Unavailable | + +------+ + Encounter Details +--------+ + + + + | Date | Type | Department | Care Team | Description | +--------+ + + + + | 06/17/ | Hospital | [facility] | | | | 1991 - | Encounter | MED CTR GENERIC PSY | | | | | | CONV DEPT [address] | | | | 06/18/ | | [place], | | | | 1991 | | [place] [address] | | | | | | [phone] | | | +--------+ + + + [...] | | | | | [place] [address] | | | | | | [phone] | | | | | | | | +--------+---------+ + + + documented as of this encounter Visit Diagnoses Not on filedocumented in this encounter"
--- OUTSIDE RECORDS SUMMARY | ~2020-04-20 | XMS | Encounter Summary ---
Demographics + + + | Address | [address] | | | [place] [address] | + + + | Home Phone [...] [place], [place] | | | | | [address] | | + + + + + Care Team Providers + +------+ + | Care Mold Forms Builder Name | Role | Phone | + +------+ + PCP | Unavailable | + +------+ + Encounter Details +--------+ + + + + | Date | Type | Department | Care Team | Description | +--------+ + + + + | 05/23/ | Hospital | [facility] | | | | 1991 | Encounter | MED CTR XRAY [address] | | | | | | [place] | | | | | | [place] [address] | | | | | | [phone] | | | +--------+ + + + [...] | | | | | [place] [address] | | | | | | [phone] | | | | | | | | +--------+---------+ + + + documented as of this encounter Visit Diagnoses Not on filedocumented in this encounter"
--- OUTSIDE RECORDS SUMMARY | ~2020-04-20 | XMS | Encounter Summary ---
Demographics + + + | Address | [address] | | | [place] [address] | + + + | Home Phone [...] [place] | | | | | [address] | | + + + + + Care Team Providers + +------+ + | Care Livestock Auctioneer Name | Role | Phone | + [...] + + | 08/30/ | Telephone | [facility] | Ashley Chávez | Other (Patient wants | | 2018 | | CARDIOLOGY [place] | Pollo, Director Of Market Research | to take monitor | | | | [address] | | off. ) | | | | [address] | | | | | | [place] | | | | | | [address] | | | | | | [phone] | | | +--------+ + + + [...] Miscellaneous Notes Telephone Encounter - Ashley Chávez, Director Of Market Research - 08/30/2019 9:19 AM PSTTd t called [...] thankful for the news. Patient stated understanding JDW:SPRAY WORKER-AAMA. [facility] umented in this encounter Plan of Treatment +--------+---------+ + + + | Date | Type | Specialty | Care Team | Description | +--------+---------+ + + + | 04/24/ | Office | Cardiology | Britt[facility] | | | 2019 | Visit | | CAROLINE Mendez [address] | | | | | | [address] | | | | | | [place] [address] | | | | | | [phone] | | | | | | | | +--------+---------+ + + + documented as of this encounter Visit Diagnoses Not on filedocumented in this encounter"
--- OUTSIDE RECORDS SUMMARY | ~2020-04-20 | XMS | Encounter Summary ---
Demographics + + + | Address | [address] | | | [place] [address] | + + + | Home Phone [...] [place] | | | | | [address] | | + + + + + Care Team Providers + +------+ + | Care Full Stack Net Developer Name | Role | Phone | [...] | | | | | [address] | [place], [place] | | | | | [place], [place] | [address] | | | | | [address] | | | | | | [phone] | | | +--------+ + + + [...] [place] Notes Anesthesia Preprocedure Evaluation - Orlando Ptael MD - 06/25/2014 2:14 PM Eddie saeed of this note might be different from the original. ANESTHESIA PREANESTHESIA EVALUATION Cindy Arndt 58 y.o. female 1955 [id number] Scheduled procedure LAMINECTOMY PLIF/TLIF INSTRUMENTATION [1842] - L5-S1 TLIF Medical history, anesthesia, medications, allergy histories reviewed. ECG reviewed. Labs reviewed. ROS / Med History Ane (+) PONV. (-) difficult intubation, malignant hyperthermia . NPO status verified. CV (+) hypertension.(-) past IL. (+) Dysrhythmias (h/o PVCs) Exercise tolerance >4 [...] | | | | | [place] [address] | | | | | | [phone] | | | | | | | | +--------+---------+ + + + documented as of this encounter Visit Diagnoses Not on filedocumented in this encounter"
--- OUTSIDE RECORDS SUMMARY | ~2020-04-20 | XMS | Encounter Summary ---
Demographics + + + | Address | [address] | | | [place] [address] | + + + | Home Phone [...] [place] | | | | | [address] | | + + + + + Care Team Providers + +------+ + | Care Retirement Administrator Name | Role | Phone | [...] + + | 02/06/ | Telephone | [facility] | Roxannmigue lángelDora | Patient Concerns | | 2020 | | CARDIOLOGY [place] | [address] | | | | | [address] | [address] | | | | | [address] | [place] [address] | | | | | [place] | [phone] | | | | | [address] | | | | | | [phone] | | | +--------+ + + + [...] | | | | | [place] [address] | | | | | | [phone] | | | | | | | | +--------+---------+ + + + documented as of this encounter Visit Diagnoses Not on filedocumented in this encounter"
--- OUTSIDE RECORDS SUMMARY | ~2020-04-20 | XMS | Clinical Summary ---
Demographics + + + | Address | [address] | | | [place] [address] | + + + | Home Phone [...] [place] | | | | | [address] | | + + + + + Care Team Providers + +------+ + | Care Line Prep Cook Name | Role | Phone | [...] | | | | e | | ([employer] VERIO FLEX | | | | [...] | obesity) (FORMERLY [facility]); | | | | | | History [...] | obesity) (FORMERLY [facility]) | +--------+ + + + + | 02/06/ | Telephone | Cardiology | Dora De La Torre | Patient Concerns | | 2019 | | | CAROLINE Mendez | | +--------+ + + + + | 02/05/ | Telephone | Cardiology | Ashley Chávez | Other (Patient | | 2019 | | | Pollo, Supervisor Of Research | problems. ) | +--------+ + + [...] [place] | | | | | | [place] [address] | | | | | | [phone] | | | | | | | [...] | [employer] - | | 04/02/ | [id number] | | 5ccImplanted: Qty: 1 on | | Spine | MEDT | | 2019 | | | 07/02/2014 by Frandy Teresa | | Lumbar | | | | /[id number] | | DO Ronak at [facility] | | | | | | 6-020 | | [facility] | | | | | | / | + +------+--------+ +--------+--------+--------+ | Graft Infuse Bone Kit Xxs - | | N/A: | SOFAMOR | | 01/21/ | [id number] | | [id number]: Qty: 1 on | | Spine | DANEK - DIV | | 2014 | 0 / | | 07/02/2014 by Frandy Teresa | | Lumbar | [employer] | | | /[id number] | | DO Ronak at [facility] | | | - SFDK | | | 06AAH | | [facility] | | | | | | | + +------+--------+ +--------+--------+--------+ | Imp Spn Spcr Cpstn 8x26mm - | | N/A: | SOFAMOR | | 01/11/ | [id number] | | [id number]: Qty: 1 on | | Spine | DANEK - DIV | | 2 | 6 / | | 07/02/2014 by Frandy Teresa | | Lumbar | [employer] | | | /[id number] | | DO Ronak at [facility] | | | - SFDK | | | 928 | | [facility] | | | | | | | + +------+--------+ +--------+--------+--------+ | Set Scrw Ns G5 Brk Off Ti | | N/A: | SOFAMOR | | | [id number] | | 4.75 - [id number]: | | Spine | DANEK - DIV | | | 0 / / | | Qty: 4 on 07/02/2014 by | | Lumbar | [employer] | | | | | Frandy Teresa DO at [facility] | | | - SFDK | | | | | [facility] | | | | | | | | [place] | | | | | | | + +------+--------+ +--------+--------+--------+ | RodImplanted: Qty: 1 on | | N/A: | | | | [id number] | | 07/02/2014 by Frandy Teresa | | Spine | | | | 540 / | | A, DO at [facility] | | Lumbar | | | | / | | [facility] | | | | | | | + +------+--------+ +--------+--------+--------+ | RodImplanted: Qty: 1 on | | N/A: | MEDTROL - | | | [id number] | | 07/02/2014 by Frandy Teresa | | Spine | MDTR | | | 545 / | | A, DO at [facility] | | Lumbar | | | | / | | [facility] | | | | | | | + +------+--------+ +--------+--------+--------+ | Screw 7.5x50mm Sextant - | | N/A: | [employer]IC - | | | [id number] | | [id number]: Qty: 1 on | | Spine | MEDT | | | [id number] | | 07/02/2014 by Frandy Teresa | | Lumbar | | | | / / | | A, DO at [facility] | | | | | | | | [facility] | | | | | | | + +------+--------+ +--------+--------+--------+ | Cannulated ScrewImplanted: | | N/A: | MEDTROL - | | | [id number] | | Qty: 1 on 07/02/2014 by | | Spine | MDTR | | | [id number] | | Frandy Teresa DO at [facility] | | Lumbar | | | | / / | | [facility] | | | | | | | | CENTER | | | | | | | + +------+--------+ +--------+--------+--------+ | Cannulated ScrewImplanted: | | N/A: | MEDTRONIC - | | | [id number] | | Qty: 1 on 07/02/2014 by | | Spine | MEDT | | | [id number] | | Frandy Teresa DO at [facility] | | Lumbar | | | | / / | | [facility] | | | | | [...] | obesity) (FORMERLY [facility]) | | + +--------+ + + + [...] +--------+ +---------+--------+ | MEDICARE | MEDICA | [id number] | 02/22/20 | [phone] | | Medica | | | RE | | 09-Pre | 5 | | re | | | PART A | | sent | | | | | | AND B | | | | | | + +--------+ +--------+ +---------+--------+ | MEDICARE | MEDICA | [id number] | 02/22/20 | [phone] | | Medica [...] [place] | | | 1 (Home) | [address] | + +--------+ +--------+ + + | Cindy Arndt L | Person | Self | [birth year] | [address] | | | al/Fam | | 1955 | [phone] | [address] [place], [place] | | | [place] | | | 1 (Home) | [address] | + +--------+ +--------+ + + Advance Directives + + + + + | Type | Date Recorded | Patient | Explanation | | | | Cork Tipper | | + + + + + | Power of | | | | | Record Press Supervisor | | | | + + + [...]
--- OUTSIDE RECORDS SUMMARY | ~2020-04-20 | XMS | Encounter Summary ---
Demographics + + + | Address | [address] | | | [place] [address] | + + + | Home Phone [...] [place] | | | | | [address] | | + + + + + Care Team Providers + +------+ + | Care Multicut Line Operator Name | Role | Phone | [...] + | 12/03/ | Refill | [facility] | Frandy Teresa, | Medication Refill | | 2014 | | NEUROSURGERY [address] | DO [address] | | | | | [address] [facility] | [address] [place], [place] | | | | | [place], [place] | [id number] | | | | | [address] | | | | | | [phone] | | | +--------+--------+ + + + [...] office and the number we have in [facility] is not correct. Art Andersen NP Chart notes faxed to [phone] along with medication list. Sent request to update contac t information in [facility] To Kathy @ [facility] Support Team documented in this [...] [place] | | | | | | [place] [address] | | | | | | [phone] | | | | | | | | +--------+---------+ + + + documented as of this encounter Visit Diagnoses Not on filedocumented in this encounter"
--- OUTSIDE RECORDS SUMMARY | ~2020-04-20 | XMS | Encounter Summary ---
Demographics + + + | Address | [address] | | | [place] [address] | + + + | Home Phone [...] [place], [place] | | | | | [address] | | + + + + + Care Team Providers + +------+ + | Care Advertising Associate Name | Role | Phone | + +------+ + PCP | Unavailable | + +------+ + Encounter Details +--------+ + + + + | Date | Type | Department | Care Team | Description | +--------+ + + + + | 07/17/ | Hospital | [facility] | | | | 1997 | Encounter | MED CTR EMERGENCY | | | | | | [place] | | | | | | [place] | | | | | | [address] | | | | | | [phone] | | | +--------+ + + + [...] [place] | | | | | | [place] [address] | | | | | | [phone] | | | | | | | | +--------+---------+ + + + documented as of this encounter Visit Diagnoses Not on filedocumented in this encounter"
--- OUTSIDE RECORDS SUMMARY | ~2020-04-20 | XMS | Encounter Summary ---
Demographics + + + | Address | [address] | | | [place] [address] | + + + | Home Phone [...] [place] | | | | | [address] | | + + + + + Care Team Providers + +------+ + | Care Whanau Support Worker Name | Role | Phone [...] [address] | [address] [place], [place] | fusion | | | | [place] | [address] | | | | | [address] | | | | | | [phone] | | | +--------+ + + + [...] | 2020 | Visit | | Vanessa, WASTE SPECIALIST [address] | | | | | | [address] | | | | | | [place] [address] | | | | | | [phone] | | | | | | | | +--------+---------+ + + + documented as of this encounter Visit Diagnoses + + | Diagnosis | + + | Lumbago - Primary | + + | S/P lumbar fusion Arthrodesis status | + + documented in this encounter"
--- OUTSIDE RECORDS SUMMARY | ~2020-04-20 | XMS | Encounter Summary ---
Demographics + + + | Address | [address] | | | [place] [address] | + + + | Home Phone [...] [place] | | | | | [address] | | + + + + + Care Team Providers + +------+ + | Care Office Services Manager Name | Role | Phone [...] + | 07/01/ | Telephone | [facility] | Frandy Teresa, | Other (Surgery ) | | 2013 | | NEUROSURGERY [address] | DO [address] | | | | | [address] | [address] [place], [place] | | | | | [place], [place] | [id number] | | | | | [address] | | | | | | [phone] | | | +--------+ + + + [...] [address] | | | | | | [place] [address] | | | | | | [phone] | | | | | | | | +--------+---------+ + + + documented as of this encounter Visit Diagnoses Not on filedocumented in this encounter"
--- OUTSIDE RECORDS SUMMARY | ~2020-04-20 | XMS | Encounter Summary ---
Demographics + + + | Address | [address] | | | [place] [address] | + + + | Home Phone [...] [place] | | | | | [address] | | + + + + + Care Team Providers + +------+ + | Care Ground Nuclear Weapons Assembly Officer Name | Role | Phone | [...] + + | 09/19/ | Telephone | [facility] | Ashley Chávez | Other (Patient | | 2018 | | CARDIOLOGY [place] Abad, Programmer Analyst Consultant | calling to be seen | | | | [address] | | mirella. ) | | | | [place] | | | | | | [address] | | | | | | [phone] | | | +--------+ + + + [...] Miscellaneous Notes Telephone Encounter - Ashley Chávez Programmer Analyst Consultant - 09/19/2019 10:41 AM PSTCall m cierra to patient to advise of Dr. Peterson's notes. Patient stated understanding. Patient asked why she couldn't be seen sooner, and I reminded her that we offered her a monae ner appointment that she turned down. Patient said thank you and hung up. CLAYTONW:MANGO. el ephone Encounter - Ashley Chávez Programmer Analyst Consultant - 09/19/2019 10:40 AM PST Dora De La Torre, CAROLINE Peterson DO; Ashley Chávez Programmer Analyst Consultant So just an FYI: we offered her appointment today at 3 pm but she turned it down, and said she would keep scheduled appt. el ephone Encounter - Ashley Chávez Programmer Analyst Consultant - 09/19/2019 10:38 AM PST----- Mess age [...] she needs to be seen by a mortuary operations manager. I have asked Lizeth to call her [...] help her pulse? Please advise. Thank you! [facility] hidalgo in this encounter Plan of Treatment +--------+---------+ + + + | Date | Type | Specialty | Care Team | Description | +--------+---------+ + + + | 04/24/ | Office | Cardiology | Dora De La Torre | | | 2019 | Visit | | CAROLINE Mendez [address] | | | | | | [address] | | | | | | [place] [address] | | | | | | [phone] | | | | | | | | +--------+---------+ + + + documented as of this encounter Visit Diagnoses Not on filedocumented in this encounter"
--- OUTSIDE RECORDS SUMMARY | ~2020-04-20 | XMS | Encounter Summary ---
Demographics + + + | Address | [address] | | | [place] [address] | + + + | Home Phone [...] [place] | | | | | [address] | | + + + + + Care Team Providers + +------+ + | Care Molded Grid And Parts Inspector Name | Role | Phone | [...] + + | 08/16/ | Telephone | [facility] | Ashley Chávez | Other (Called to | | 2018 | | CARDIOLOGY [place] | Poll[place], Pearl Fisherman | tell patient what | | | | [address] | | Nicholas said. ) | | | | [place] [address] | | | | | | [place] | | | | | | [address] | | | | | | [phone] | | | +--------+ + + + [...] Miscellaneous Notes Telephone Encounter - Ashley Chávez, Pearl Fisherman - 08/16/2019 2:57 PM PDTCall m cierra to patient to advise of Dr. Peterson's notes. Patient stated understanding. JKASSIE:DIABETIC EDUCATOR-AAMA el ephone Encounter - Ashley Chávez Pearl Fisherman - 08/16/2019 2:56 PM PDT----- Mess age [...] Thanks. ----- Message ----- From: Lesa Ochoa, Pearl Fisherman Sent: 08/13/2019 13:31 To: Desiree Peterson DO [...] [address] | | | | | | [place] [address] | | | | | | [phone] | | | | | | | | +--------+---------+ + + + documented as of this encounter Visit Diagnoses Not on filedocumented in this encounter"
--- OUTSIDE RECORDS SUMMARY | ~2020-04-20 | XMS | Encounter Summary ---
Demographics + + + | Address | [address] | | | [place] [address] | + + + | Home Phone [...] [place] | | | | | [address] | | + + + + + Care Team Providers + +------+ + | Care Manager Call Center Name | Role | Phone | + [...] | 08/26/ | Refill | [facility] [place] | Frandy Teresa, | Medication Refill | | 2013 | | NEUROSURGERY [address] | DO [address] | | | | | [address] [facility] | [address] [place], [place] | | | | | [place], [place] | [id number] | | | | | [address] | | | | | | [phone] | | | +--------+--------+ + + + [...] to notify that p rescription refill for [place] has been authorized. Informed about MRI results per MD results. Also notified about new medication neurontin. Pt verbalized understanding and will notify o ur office if her numbness to bilat feet (upper and lower) doesn't improve. Pt requested refi ll rx of [place] to be mailed via certified mail [facility] signed by Megan Schreiber, RN [...] PSTPt called to requesting medication refill of [place]. Pt c/o l ower back and left [...] in thi s encounter Plan of Treatment +--------+---------+ + + + | Date | Type | Specialty | Care Team | Description | +--------+---------+ + + + | 04/24/ | Office | Cardiology | Dora De La Torre | | | 2020 | Visit | | CAROLINE Mendez [address] | | | | | | [address] | | | | | | [place] [address] | | | | | | [phone] | | | | | | | | +--------+---------+ + + + documented as of this encounter Visit Diagnoses Not on filedocumented in this encounter"
--- OUTSIDE RECORDS SUMMARY | ~2020-04-20 | XMS | Encounter Summary ---
Demographics + + + | Address | [address] | | | [place] [address] | + + + | Home Phone [...] [place] | | | | | [address] | | + + + + + Care Team Providers + +------+ + | Care Senior Technical Support Engineer Name | Role | Phone [...] | 08/26/ | Refill | [facility] [place] | Frandy Teresa, | Medication Refill | | 2013 | | NEUROSUR[address]ERY [address] | DO [address] | | | | | [address] [facility] | [address] [place], [place] | | | | | [place], [place] | [id number] | | | | | [address] | | | | | | [phone] | | | +--------+--------+ + + + [...] to notify that p rescription refill for [place] has been authorized. Informed about MRI results per MD results. Also notified about new medication neurontin. Pt verbalized understanding and will notify o ur office if her numbness to bilat feet (upper and lower) doesn't improve. Pt requested refi ll rx of [place] to be mailed via certified mail to her [facility] signed by Megan Schreiber, RN [...] PSTPt called to requesting medication refill of [place]. Pt c/o l ower back and left [...] | | | | | [place] [address] | | | | | | [phone] | | | | | | | | +--------+---------+ + + + documented as of this encounter Visit Diagnoses Not on filedocumented in this encounter"
--- OUTSIDE RECORDS SUMMARY | ~2020-04-20 | XMS | Encounter Summary ---
Demographics + + + | Address | [address] | | | [place] [address] | + + + | Home Phone [...] [place], [place] | | | | | [address] | | + + + + + Care Team Providers + +------+ + | Care Photogrammetry Airplane Pilot Name | Role | Phone | + +------+ + PCP | Unavailable | + +------+ + Encounter Details +--------+ + + + + | Date | Type | Department | Care Team | Description | +--------+ + + + + | 12/31/ | Hospital | [facility] | | | | 1996 | Encounter | MED CTR XRAY [address] | | | | | | [place] | | | | | | [place] [address] | | | | | | [phone] | | | +--------+ + + + [...] | | | | | [place] [address] | | | | | | [phone] | | | | | | | | +--------+---------+ + + + documented as of this encounter Visit Diagnoses Not on filedocumented in this encounter"
--- OUTSIDE RECORDS SUMMARY | ~2020-04-20 | XMS | Encounter Summary ---
Demographics + + + | Address | [address] | | | [place] [address] | + + + | Home Phone [...] [place] | | | | | [address] | | + + + + + Care Team Providers + +------+ + | Care Informatica Developer Name | Role | Phone | [...] [place] | | | | | | [address] | | | | | | [phone] | | | +--------+ + + + [...] [address] | | | | | | [place] [address] | | | | | | [phone] | | | | | | | | +--------+---------+ + + + documented as of this encounter Visit Diagnoses Not on filedocumented in this encounter"
--- OUTSIDE RECORDS SUMMARY | ~2020-04-20 | XMS | Encounter Summary ---
Demographics + + + | Address | [address] | | | [place] [address] | + + + | Home Phone [...] [place] | | | | | [address] | | + + + + + Care Team Providers + +------+ + | Care Vice President Industrial Relations Name | Role | Phone | [...] + + | 08/16/ | Documentati | [facility] | Katharine Moncada, | Other (urgent | | 2019 | on | CARDIOLOGY [place] | Technologist | report) | | | | [address] | | | | | | [place] | | | | | | [address] | | | | | | [phone] | | | +--------+ + + + [...] | | | | | [place] [address] | | | | | | [phone] | | | | | | | | +--------+---------+ + + + documented as of this encounter Visit Diagnoses Not on filedocumented in this encounter"
--- OUTSIDE RECORDS SUMMARY | ~2020-04-20 | XMS | Encounter Summary ---
Demographics + + + | Address | [address] | | | [place] [address] | + + + | Home Phone [...] [place], [place] | | | | | [address] | | + + + + + Care Team Providers + +------+ + | Care Online Activist Name | Role | Phone | + +------+ + PCP | Unavailable | + +------+ + Encounter Details +--------+ + + + + | Date | Type | Department | Care Team | Description | +--------+ + + + + | 05/23/ | Hospital | [facility] | [place], | | | 2011 | Encounter | MED CTR XRAY [address] | MD [address] | | | | | [place] | [place] | | | | | [place] [address] | [address] | | | | | [phone] | | | +--------+ + + + [...] + + + +---------+ + + | [place]-3 Fatty | Take 1,000 mg by | [...] [address] | | | | | | [place] [address] | | | | | | [phone] | | | | | | | [...] + | [facility] | [facility] | | [address] [facility] | [facility] | | LUMBAR SPINE MR WITHOUT [...] Transcribed Date/Time: | | | 05/23/2012 16:55 Heat Curer: <Electronically Signed | | | by Adriano Anne MD> 05/23/12 8992 | | + + + + + | Procedure Note | + + | Jaun, Rad Conversion - 11/30/2013 5:[address] [facility] | | Diagnostic Imaging Department [address] [place] [address] | | LUMBAR SPINE MR WITHOUT CONTRAST, [...] 16:37 | |Transcribed Date/Time: 05/23/2012 16:55 | |Heat Curer: JOE | |<Electronically Signed by Adriano Anne MD> [...]
--- OUTSIDE RECORDS SUMMARY | ~2020-04-20 | XMS | Encounter Summary ---
Demographics + + + | Address | [address] | | | [place] [address] | + + + | Home Phone [...] [place] | | | | | [address] | | + + + + + Care Team Providers + +------+ + | Care Manager Monitoring Name | Role | Phone | [...] + | 05/13/ | Telephone | [facility] | Frandy Teresa, | Other | | 2013 | | NEUROSURGERY [address] | DO [address] | | | | | [address] | [address] [place], [place] | | | | | [place], [place] | [id number] | | | | | [address] | | | | | | [phone] | | | +--------+ + + + [...] [address] | | | | | | [place] [address] | | | | | | [phone] | | | | | | | | +--------+---------+ + + + documented as of this encounter Visit Diagnoses Not on filedocumented in this encounter"
--- OUTSIDE RECORDS SUMMARY | ~2020-04-20 | XMS | Encounter Summary ---
Demographics + + + | Address | [address] | | | [place] [address] | + + + | Home Phone [...] [place], [place] | | | | | [address] | | + + + + + Care Team Providers + +------+ + | Care Podopediatrician Name | Role | Phone | + +------+ + PCP | Unavailable | + +------+ + Encounter Details +--------+ + + + + | Date | Type | Department | Care Team | Description | +--------+ + + + + | 12/27/ | Hospital | [facility] | | | | 1997 | Encounter | MED CTR EMERGENCY | | | | | | [address] | | | | | | [place] | | | | | | [address] | | | | | | [phone] | | | +--------+ + + + [...] [address] | | | | | | [place] [address] | | | | | | [phone] | | | | | | | | +--------+---------+ + + + documented as of this encounter Visit Diagnoses Not on filedocumented in this encounter"
--- OUTSIDE RECORDS SUMMARY | ~2020-04-20 | XMS | Encounter Summary ---
Demographics + + + | Address | [address] | | | [place] [address] | + + + | Home Phone [...] [place] | | | | | [address] | | + + + + + Care Team Providers + +------+ + | Care Spinning Machine Tender Name | Role | Phone [...] | Radiology | History [facility] | [facility] | | | | | atrial | [facility] [address] | | | | | fibrillation | [place] | [place] | | | | | History of | [address] | [place], [place] | | | | | stroke | [place] | [address] | | | | | Sinus | [address] | Phone: | | | | | tachycardia | Phone: | [phone] | | | | | by | [phone] | Fax: | | | | | electrocardi | Fax: | [phone] | | | | | ogram New | [phone] | | | | | | onset [...] + | 01/09/ | Office | [facility] | Roxannmiguel ángelDora | History of atrial | | 2020 | Visit | CARDIOLOGY [place] | CAROLINE Mendez [address] | fibrillation | | | | [address] | RAVI SCHAFER F | (Primary Dx); Benign | | | | [address] | [place] [address] | essential HTN; | | | | [place], [place] | [phone] | History of | | | | [address] | | hypothyroidism; | | | | [phone] | | Stress | | | | [...] an urgent Echo to be done at [place] to follow up on new left bundle [...] of fatigue and shortness of breath. 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 She reports after she lost 160 pounds with a gastric sleeve that she was retested for sle ep apnea 2 years ago, and told the results negative, but has not had CPAP for 3 years She has previously seen Dr. Garland in [place], and different sleep provider in [facility] when lived over there. She reports [...] thirst or hunger. Psychiatric/Behavioral: Bipolar/Schizophrenia. Tx'd by [employer] Vaccines: Current on flu vaccine: 2019 Current on pneumonia vaccine:PPSV 23 05/29/2013 Habits/Social : Denies history of smoking. Denies EtOH use. Denies recreational or illici t drug use. Exercises sporadically. Lives in [place] . Outpatient Medications Prior to Visit Medication [...] by mouth nightly. Blood Glucose Monitoring Suppl ([employer] VERIO FLEX SYSTEM) w/Device KIT by Does [...] nonspecific ST-T wave abnormality rate 82 bpm, AK 176 ms, QRS 80 ms, QTC 446 ms tracing personally reviewed by me EK12/17/2019: Sinus tachycardia, nonspecific ST wave abnormalities, rate 105 bpm, AK 196 ms, QRS 74 ms, QTC 430 ms, tracing personally reviewed by me, and compared to EKG performed in February 2019, rate is less well-controlled EK01/10/2020 (metoprolol XL 50 mg twice daily. Normal sinus rhythm, new left bundle bran ch block Rate 74 bpm, AK 204 ms, QRS 138 ms, QTC 488 ms, tracing personally reviewed by me and Dr. Peterson. compared to EKG performed in November, new left bundle branch block, lead III has lower voltage QRS also in aVL and aVF, and improved voltage to anterior leads and rate i s better controlled. LABS Labs: 12/26/2018: ( [facility])CMP: Sodium 139, potassium 4.2, chloride 99, BUN 10, creatinine 0. 7, BNP 28. CBC: WBC 7.8, hemoglobin 14.3, hematocrit 42.7, platelets 214 Labs: 09/28/2019:( [facility]) CBC: WBC 7.8, hemoglobin 14.9, hematocrit 43.8, platelets 221. C MP: Sodium 132, potassium 4.2, chloride 95, AST 76, ALT 76, alk phos 134 Labs: 10/11/2019:( [facility]) CBC: WBC 6.7, RBC 4.97, hemoglobin 15.2, hematocrit 44.7, platel ets 200. CMP: Glucose 385, BUN 7, creatinine 0.62, GFR 97, sodium 131, potassium 4.1, chlor kelby 95, albumin 4.3, total bilirubin 0.6, AST 75, ALT 73, alk phos 144. Thyroid: TSH 4.27 Labs: 10/12/2020:( [facility]) CBC: WBC 7, RBC 4.93, [...] and reviewed her EKG results with her cost accountant, Dr. Peterson, who is in the cli vickie today, and the plan is to get an updated echo to evaluate her for any new wall motion ab normalities. If she has any wall motion abnormalities, she will need to have further evalua tion for ischemic heart disease in [place] such as a stress test or angiogram I reviewed her EKG with her, and discussed this plan with her. The Echo will be ordered on an urgent basis, is currently a restriction on all nonurgent testing at [facility] [place] [place] . She was agreeable to this plan [...] continuity of care purp ose Preston [facility] Cardiology 01/10/2020 docume nted in [...] CANT[place] | | | | | | [place] [address] | | | | | | [phone] | | | | | | | [...] | | | | | | Yesenia ([id number]) on | | | | | | [...]
--- OUTSIDE RECORDS SUMMARY | ~2020-04-20 | XMS | Encounter Summary ---
Demographics + + + | Address | [address] | | | [place] [address] | + + + | Home Phone [...] [place] | | | | | [address] | | + + + + + [...] + + | 07/25/ | Hospital | [facility] | Frandy Teresa, | Status post lumbar | | 2014 | Encounter | MED CTR XRAY [address] | DO [address] | spinal fusion | | | | [place] | [address] [place], [place] | | | | | [place] [address] | [address] | | | | | [phone] | | | +--------+ + + + [...] + + + +---------+ + + | [place]-3 Fatty | Take 1,000 mg by | [...] CANTU | | | | | | [place] [address] | | | | | | [phone] | | | | | | | [...] + | MISCELLANEOUS LAB | | | [phone] | + +---------+ + + | MISCELANIOUS LAB | | | [phone] | + +---------+ + + documented in this encounter Visit Diagnoses + + | Diagnosis | + + | Status post lumbar spinal fusion Arthrodesis status | + + documented in this encounter"
--- OUTSIDE RECORDS SUMMARY | ~2020-04-20 | XMS | Encounter Summary ---
Demographics + + + | Address | [address] | | | [place] [address] | + + + | Home Phone [...] [place], [place] | | | | | [address] | | + + + + + Care Team Providers + +------+ + | Care Marine Pilot Name | Role | Phone | + +------+ + PCP | Unavailable | + +------+ + Encounter Details +--------+ + + + + | Date | Type | Department | Care Team | Description | +--------+ + + + + | 02/24/ | Hospital | [facility] | | | | 1997 - | Encounter | MED CTR GENERIC PSY | | | | | | CONV DEPT [address] | | | | 02/26/ | | [place], | | | | 1997 | | [place] [address] | | | | | | [phone] | | | +--------+ + + + [...] | | | | | [place] [address] | | | | | | [phone] | | | | | | | | +--------+---------+ + + + documented as of this encounter Visit Diagnoses Not on filedocumented in this encounter"
--- OUTSIDE RECORDS SUMMARY | ~2020-04-20 | XMS | Encounter Summary ---
Demographics + + + | Address | [address] | | | [place] [address] | + + + | Home Phone [...] [place] | | | | | [address] | | + + + + + Care Team Providers + +------+ + | Care Assistant Professor Of Biology Name | Role | Phone | + [...] + | 07/19/ | Telephone | [facility] | Frandy Teresa, | Appointment | | 2013 | | NEUROSURGERY [address] | DO [address] | | | | | [address] | [address] [place], [place] | | | | | [place], [place] | [id number] | | | | | [address] | | | | | | [phone] | | | +--------+ + + + [...] Spivey - 07/22/2014 8:09 AM Nakia from [facility] called back this morning to isamar mcarthure that she spoke with the patient again regarding this appointment and the patient would be ok with rescheduling to a time the following week. She just didn't want to make the trip down here right after she got back home to [place]. Janes can be reached at [phone] ectronically signed by Tiffani Humphrey at 07/22/2014 8:11 AM PDTTelephone Encounter - Lashawn Metzger - 07/19/2014 12:56 PM PDTSuarlen from [facility] called to confirm Cindy' s appointment for [...] | | | | | | [address] | | | | | | [place] [address] | | | | | | [phone] | | | | | | | | +--------+---------+ + + + documented as of this encounter Visit Diagnoses Not on filedocumented in this encounter"
--- OUTSIDE RECORDS SUMMARY | ~2020-04-20 | XMS | Encounter Summary ---
Demographics + + + | Address | [address] | | | [place] [address] | + + + | Home Phone [...] [place] | | | | | [address] | | + + + + + Care Team Providers + +------+ + | Care Dental Assistant Name | Role | Phone [...] + + | 10/25/ | Telephone | [facility] | Ashley Chávez | Other (Patient to | | 2019 | | CARDIOLOGY GENESIS Abad, Marketing Sales Supervisor | stay on the same | | | | [address] | | dose. ) | | | | [place] | | | | | | [address] | | | | | | [phone] | | | +--------+ + + + [...] Miscellaneous Notes Telephone Encounter - Ashley Chávez Marketing Sales Supervisor - 10/25/2019 8:44 AM PSTCall m [...] CLAYTONW:[email or web address]. el ephone Encounter - Ashley Chávez Marketing Sales Supervisor - 10/25/2019 8:40 AM PST----- Mess age from Desiree Peterson DO sent at 10/24/2019 8:42 PM PST ----- Regarding: RE: Patient's Metoprolol. We can stay on the same dose of metoprolol for now. Thanks ----- Message ----- From: Ashley Chávez Marketing Sales Supervisor Sent: 10/23/2019 10:52 AM PST To: [...] | | | | | [place] [address] | | | | | | [phone] | | | | | | | | +--------+---------+ + + + documented as of this encounter Visit Diagnoses Not on filedocumented in this encounter"
--- OUTSIDE RECORDS SUMMARY | ~2020-04-20 | XMS | Encounter Summary ---
Demographics + + + | Address | [address] | | | [place] [address] | + + + | Home Phone [...] [place], [place] | | | | | [address] | | + + + + + Care Team Providers + +------+ + | Care Fluid Dynamicist Name | Role | Phone | + +------+ + PCP | Unavailable | + +------+ + Encounter Details +--------+ + + + + | Date | Type | Department | Care Team | Description | +--------+ + + + + | 02/02/ | Hospital | [facility] | | | | 1997 | Encounter | MED CTR EMERGENCY | | | | | | [address] | | | | | | [place] | | | | | | [address] | | | | | | [phone] | | | +--------+ + + + [...] CANTU | | | | | | [place] [address] | | | | | | [phone] | | | | | | | | +--------+---------+ + + + documented as of this encounter Visit Diagnoses Not on filedocumented in this encounter"
--- OUTSIDE RECORDS SUMMARY | ~2020-04-20 | XMS | Encounter Summary ---
Demographics + + + | Address | [address] | | | [place] [address] | + + + | Home Phone [...] [place] | | | | | [address] | | + + + + + Care Team Providers + +------+ + | Care Content Production Specialist Name | Role | Phone | [...] | Transcriptions | + + | Interface, Loan Funder In - 11/04/2006 3:03 AM PST | | [address] | | [place], [place] [address] [facility] | | ClinicsOPERATION RECORDMed [...] skin retractor was put in place. The Pierson elevators wereused to separate the | | [...]
--- OUTSIDE RECORDS SUMMARY | ~2020-04-20 | XMS | Encounter Summary ---
Demographics + + + | Address | [address] | | | [place] [address] | + + + | Home Phone [...] [place] | | | | | [address] | | + + + + + Care Team Providers + +------+ + | Care Poultry Inseminator Name | Role | Phone | [...] | | | IMAGING [address] | Mmii VAZQUEZ | | | | | [address] [place] | [place] [address] | | | | | [place] [address] | | | | | | [phone] | | | +--------+ + + + [...] [place] | | | | | | [facility] [address] | | | | | | [phone] | | | | | | | [...]
--- OUTSIDE RECORDS SUMMARY | ~2020-04-20 | XMS | Encounter Summary ---
Demographics + + + | Address | [address] | | | [place] [address] | + + + | Home Phone [...] [place] | | | | | [address] | | + + + + + Care Team Providers + +------+ + | Care Featheredger And Reducer Machine Name | Role | Phone | [...] [address] | [address] [place], [place] | Anxiety; Anemia; | | | | [place] | [address] | Irregular heartbeat; | | | | [address] | | Depression; | | | | [phone] | | Migraine; | | | | [...] CANTU | | | | | | [place] [address] | | | | | | [phone] | | | | | | | [...]
--- OUTSIDE RECORDS SUMMARY | ~2020-04-20 | XMS | Encounter Summary ---
Demographics + + + | Address | [address] | | | [place] [address] | + + + | Home Phone [...] [place], [place] | | | | | [address] | | + + + + + Care Team Providers + +------+ + | Care Gauge Machine Operator Name | Role | Phone | + +------+ + PCP | Unavailable | + +------+ + Encounter Details +--------+ + + + + | Date | Type | Department | Care Team | Description | +--------+ + + + + | 02/02/ | Hospital | [facility] | | | | 1997 - | Encounter | MED CTR GENERIC PSY | | | | | | CONV DEPT [address] | | | | 02/05/ | | [place], | | | | 1997 | | [place] [address] | | | | | | [phone] | | | +--------+ + + + [...] | | | | | [place] [address] | | | | | | [phone] | | | | | | | | +--------+---------+ + + + documented as of this encounter Visit Diagnoses Not on filedocumented in this encounter"
--- OUTSIDE RECORDS SUMMARY | ~2020-04-20 | XMS | Encounter Summary ---
Demographics + + + | Address | [address] | | | [place] [address] | + + + | Home Phone [...] [place] | | | | | [address] | | + + + + + Care Team Providers + +------+ + | Care Business Planning Director Name | Role | Phone | + +------+ + | Basim Bolanos MD | PCP | | + +------+ + Encounter Details +--------+ + + + + | Date | Type | Department | Care Team | Description | +--------+ + + + + | 03/30/ | Hospital | [facility] | Tyrese Neely MD | | | 2012 | Encounter | MED CTR MP INTRA OP | [address], [place] | | | | | [address] | [address] [place], [place] | | | | | [place], [place] | [address] | | | | | [address] | | | | | | [phone] | | | +--------+ + + + [...] + + + +---------+ + + | [place]-3 Fatty | Take 1,000 mg by [...] Neely MD - 03/30/2013 12:10 [place] [address] Patient Name: CINDY ARNDT Provider: Tyrese Neely MD Unit #: [id number] Location: [facility] : 1955 Patient Name: Cindy Arndt Gender: F Procedure Date: 03/30/2013 12:10 PM Date of : 1955 Age: 57 Admit Type: Outpatient Room: Endo Room 1 Note Status: Finalized Attending MD: Tyrese Neely MD Procedure: Upper GI endoscopy Indications: Epigastric abdominal pain Providers: Tyrese Neely MD, Vanesa Anne RN, Yesenia Downing, Striper, Guillermo Ortiz MD (Anesthesia Staff) Referring MD: [...] physician, the nurse, the anesthesiologist and the geodetic technician. The procedure was verified in the [...] | | | | | [place] [address] | | | | | | [phone] | | | | | | | [...] + | [facility] | [address] | [place] | [phone] | | [facility] | | [address] | | | - LABORATORY | | | | + + + + + | [facility] | [address] | [place], [place] | | | [facility] | | [address] | | | - [...] BIOPSY | Negative for Urease | | [facility] | | | UREASE TEST [...] + | [facility] | [address] | [place] | [phone] | | [facility] | | [address] | | | - LABORATORY | | | | + + + + + | [facility] | [address] | [place] | | | [facility] | | [address] [place] [address] | | | - LABORATORY | | | | + + + + + documented in this encounter Visit Diagnoses Not on filedocumented in this encounter"
--- OUTSIDE RECORDS SUMMARY | ~2020-04-20 | XMS | Encounter Summary ---
Demographics + + + | Address | [address] | | | [place] [address] | + + + | Home Phone [...] [place], [place] | | | | | [address] | | + + + + + Care Team Providers + +------+ + | Care Diffusion Operator Name | Role | Phone | + +------+ + PCP | Unavailable | + +------+ + Encounter Details +--------+ + + + + | Date | Type | Department | Care Team | Description | +--------+ + + + + | 03/11/ | [facility] | [facility] | Deon Gonzales | | | 2004 | Encounter | MED CTR SLEEP | MD [address] | | | | | [place] [address] | [address] [facility] | | | | | [place], [place] | [place] [address] | | | | | [address] | [phone] | | | | | [phone] | | | +--------+ + + + [...] | | | | | [place] [address] | | | | | | [phone] | | | | | | | | +--------+---------+ + + + documented as of this encounter Visit Diagnoses Not on filedocumented in this encounter"
--- OUTSIDE RECORDS SUMMARY | ~2020-04-20 | XMS | Encounter Summary ---
Demographics + + + | Address | [address] | | | [place] [address] | + + + | Home Phone [...] [place] | | | | | [address] | | + + + + + Care Team Providers + +------+ + | Care Teachers' Assistant Name | Role | Phone | [...] | | | | | mellitus, | [address] | [place] | | | | | controlled | Phone: | [address] | | | | | (HCC) | [phone] | Phone: | | | | | History of | Fax: | [phone] | | | | | gastric | [phone] | Fax: | | | | | restrictive | | [phone] | | | | | surgery | [...] | Required | | hypertension | [address] | | | | | Lumbar | AVE [place] | [address] | | | | | radiculopath | [place], [place] | AVE | | | | | y Type 2 | [address] | [place] | | | | | diabetes | Phone: | [phone] | | | | | mellitus, | [phone] | Phone: | | | | | controlled | Fax: | [phone] | | | | | (HCC) | [phone] | Fax: | | | | | Obesity, | | [phone] | | | | | Class III, [...] | | [facility] & Katharine BUCIO in [place]. 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 Ask [facility] if they think it might be helpful [...] Cont your meds as prescribed. F/U with [facility] as scheduled Neuropathy Continue gabapentin. May consider increase if pain is not controlled. May benefit from switching from Paxil to one of the SNRIs or TCAs for analgesic effects, ho manju, she is doing so well on her current regimen it may not be worth making any changes an d find alternate ways to deal with the pain. Would be worth discussing with [facility] Psych Back Pain Will refer to water therapy (aqua fitness) at [facility] as request ed. ROGERS [...] Cont your meds as prescribed. [facility] Neuropathy Continue gabapentin. [...] the pain. Would be worth discussing with [facility] professional. Back Pain Will refer to water therapy (aqua fitness) at [facility] as request ed. Cont home exercise, [...] plan. The above note was dictated using Datalot voice recognition software. It may have not been proofread in entirety. Minor errors in grammar may occur. CHIEF COMPLAINT Chief Complaint Patient presents with Establish Care Presents to establish care. Former patient of [facility] in [place]. Other Possible stroke January 2015. Is now seeing Dr. Newman, changed to Plavix 02-27-15 from [facility]. Diabetes NIDDM. Checks blood sugars almost [...] auditory, at 36. 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 She is now very well controlled on Saphris, Depakote, and Paxi l. She is followed by [facility] [place] in [place]. She has DM2 that is well controlled [...] Laterality: N/A; Surgeon: Frandy castellanos DO; Location: [facility] MAIN OR SOCIAL HISTORY History Social [...] mg by mouth Daily. Cholecalciferol (VITAMIN D-3) 34933 units CAPS Oral Take 50,000 Units by [...] Oral Take 10 mg by mouth nightly. [place]-3 Fatty Acids (FISH OIL CONCENTRATE) 1000 MG [...] CANTU | | | | | | [place] [address] | | | | | | [phone] | | | | | | | [...] mL/min/1.73m2 | [facility] | | | SRI LANKAN | RATE,ESTIMATED | | MEDICAL | | | | mL/min/1.21c3Ymsz than | | CENTER - | | [...] + + + + + + | Albumin/Ailce | 1.6 | | [facility] | | [...] ST. | [address] | [place], [place] | [phone] | | [facility] | | [address] | | | - LABORATORY | | [...] 40-49.9 (morbid obesity) ([facility]) Morbid obesity | + + | Type [...]
--- OUTSIDE RECORDS SUMMARY | ~2020-04-20 | XMS | Encounter Summary ---
Demographics + + + | Address | [address] | | | [place] [address] | + + + | Home Phone [...] [place] | | | | | [address] | | + + + + + Care Team Providers + +------+ + | Care Clinical Lab Scientist Name | Role | Phone | [...] | | | | | Procedures | TRAVEL COORDINATOR [address] | [address] | | | | | [place] OFFICE | | [address] | | | | | CONSULTATION | [address] | [place] | | | | | NEW/ESTAB | [facility], | [address] Phone: | | | | | PATIENT 60 | [place] [address] | [phone] | | | | | MIN | Phone: | Fax: | | | | | | [phone] | [phone] | | | | | | Fax: | | | | | | | [phone] | | +--------+--------+ + + + + Encounter Details +--------+---------+ + + + | Date | Type | Department | Care Team | Description | +--------+---------+ + + + | 05/02/ | Office | [facility] | Frandy Teresa, | Spondylolisthesis of | | 2013 | Visit | NEUROSURGERY [address] | DO [address] | lumbar region | | | | [address] | [address] [place], [place] | (Primary Dx); Lumbar | | | | [place], [place] | [id number] | stenosis; Lumbar | | | | [address] | | radicular pain; | | | | [phone] | | Lumbago | +--------+---------+ + + [...] Frandy Teresa DO [address] [facility] [address] [place], [place] [id number] FAX: NEUROSURGERY HISTORY AND PHYSICAL EXAMINATION CHIEF [...] Take 15 mg by mouth nightl y. 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 CRANIAL NERVES: II: Acuity is [...] Intrinsics 5 5 Ulnar Intrinsics 5 5 Check Writer Salesperson Strength 5 5 Hip Flexion 5 4* [...] encounter Miscellaneous Notes Miscellaneous - [facility] - 05/02/2014 12:00 AM PDTElectronically signed by [facility] at 05/08/2014 8:57 AM PDTMiscellaneous - ONBASE SCAN [facility] - 05/02/2014 12:00 AM PDTEle ctronically signed by [facility] at 05/08/2014 8:56 AM PDTdocumented [...] CANTU | | | | | | [place] [address] | | | | | | [phone] | | | | | | | [...]
--- OUTSIDE RECORDS SUMMARY | ~2020-04-20 | XMS | Encounter Summary ---
Demographics + + + | Address | [address] | | | [place] [address] | + + + | Home Phone [...] [place] | | | | | [address] | | + + + + + Care Team Providers + +------+ + | Care Candles Pourer Name | Role | Phone | + [...] [place] | | | | | | [address] | | | | | | [phone] | | | +--------+ + + + [...] | | | | | [place] [address] | | | | | | [phone] | | | | | | | | +--------+---------+ + + + documented as of this encounter Visit Diagnoses Not on filedocumented in this encounter"
--- OUTSIDE RECORDS SUMMARY | ~2020-04-20 | XMS | Encounter Summary ---
Demographics + + + | Address | [address] | | | [place] [address] | + + + | Home Phone [...] [place], [place] | | | | | [address] | | + + + + + Care Team Providers + +------+ + | Care Rotary Envelope Machine Operator Name | Role | Phone | + +------+ + PCP | Unavailable | + +------+ + Encounter Details +--------+ + + + + | Date | Type | Department | Care Team | Description | +--------+ + + + + | 12/09/ | Hospital | [facility] | Serafin Bautista | | | 2011 | Encounter | MED CTR XRAY [address] | [address], [address] | | | | | [place] | [place] | | | | | [place] [address] | [address] | | | | | [phone] | | | +--------+ + + + [...] C[place] | | | | | | [place] [address] | | | | | | [phone] | | | | | | | [...] [facility] Diagnostic Imaging Department | [facility] | | [address] [facility] | [facility] | | PROCEDURE NOTE EPIDURAL | [...] Juan, Rad Conversion - 11/30/2013 4:45 PM [facility] | | Diagnostic Imaging Department | | [address] [facility] | | | | | [...] [place] | | | | | MEDILEONARD WEBB | | | | + +---------+ + + documented in this encounter Visit Diagnoses Not on filedocumented in this encounter"
--- OUTSIDE RECORDS SUMMARY | ~2020-04-20 | XMS | Encounter Summary ---
Demographics + + + | Address | [address] | | | [place] [address] | + + + | Home Phone [...] [place] | | | | | [address] | | + + + + + Care Team Providers + +------+ + | Care Stock Worker Name | Role | Phone | [...] | Telephone | [facility] [place] | [facility], | [facility] | | 2012 | | GASTROENTEROLOGY | FORTUNATO Thomas [address] | | | | | [address] [place] | [address] | | | | | [address] [place], [place] | [place], [place] | | | | | [address] | [address] | | | | | [phone] | | | +--------+ + + + [...] CANTU | | | | | | [place] [address] | | | | | | [phone] | | | | | | | | +--------+---------+ + + + documented as of this encounter Visit Diagnoses Not on filedocumented in this encounter"
--- OUTSIDE RECORDS SUMMARY | ~2020-04-20 | XMS | Encounter Summary ---
Demographics + + + | Address | [address] | | | [place] [address] | + + + | Home Phone [...] [place] | | | | | [address] | | + + + + + Care Team Providers + +------+ + | Care Safety Professional Name | Role | Phone | + +------+ + | Natalee Andersen NP | PCP | | + +------+ + Encounter Details +--------+ + + + + | Date | Type | Department | Care Team | Description | +--------+ + + + + | 05/02/ | Hospital | [facility] | Frandy Teresa, | Back pain | | 2014 | Encounter | MED CTR XRAY [address] | DO [address] | | | | | [place] | [address] [place] | | | | | [place] [address] | [address] | | | | | [phone] | | | +--------+ + + + [...] + + + +---------+ + + | [place]-3 Fatty | Take 1,000 mg by | [...] CANTU | | | | | | [place] [address] | | | | | | [phone] | | | | | | | [...] + | MISCELLANEOUS LAB | | | [phone] | + +---------+ + + | MISCELANIOUS LAB | | | [phone] | + +---------+ + + documented in this encounter Visit Diagnoses + + | Diagnosis | + + | Back pain Backache, unspecified | + + documented in this encounter"
--- OUTSIDE RECORDS SUMMARY | ~2020-04-20 | XMS | Encounter Summary ---
Demographics + + + | Address | [address] | | | [place] [address] | + + + | Home Phone [...] [place] | | | | | [address] | | + + + + + Care Team Providers + +------+ + | Care Bilingual Teacher Name | Role | Phone | [...] | | | | | ECHO | [place], [place] | | | | | | Complete | [address] | | | | | | | Phone: | | | | | | | [phone] | | | | | | | Fax: | | | | | | | [phone] | | + +--------+ + + + + Reason for Visit + + + | Reason | Comments | + + + | Follow-up | 6 month | + + + Encounter Details +--------+---------+ + + + | Date | Type | Department | Care Team | Description | +--------+---------+ + + + | 04/03/ | Office | [facility] | Desiree Peterson DO | Left bundle branch | | 2020 | Visit | CARDIOLOGY [place] | [address] | block (Primary Dx); | | | | [address] | [place], [place] | Benign essential | | | | [address] | [address] | HTN; New onset left | | | | [place], [place] | | bundle branch block | | | | [address] | | (LBBB); Obesity, | | | | [phone] | | Class III, BMI | | [...] Peterson DO - 04/03/2020 10:20 AM PDT [facility] Cardiology Cardiology Follow Up Note Reason [...] rtake in exercise. She recently got a ChiVisysua and has been walking him more regularly. 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 Blood Glucose Monitoring Suppl (BreadtripIO FLEX SYSTEM) w/Device KIT by Does not ap ply route. budesonide-formoterol (SYMBICORT) 160-4.5 MCG/ACT inhaler Inhale 2 puffs into the lungs 2 (two) times daily. Calcium Carbonate Antacid 1000 MG tablet Take 1,000 mg by mouth 3 (three) times daily. Cholecalciferol (VITAMIN D3) 68916 units CAPS Take by mouth once a [...] ALT 76, alkaline phosphatase 134. Labs: 10/20/2019:( [facility] ER) CBC: WBC 7.1, RBC [...] CANTU | | | | | | [place] [address] | | | | | | [phone] | | | | | | | | +--------+---------+ + + + + + +--------+ + + | Name | Type | Priori | Associated Diagnoses | Order Schedule | | | | ty | | | + + +--------+ + + | ECHO Complete | Echocardiog | Routin | Left bundle branch | Expected: | | | justin | yesy | marlon | 04/03/2021, Expires: | | | | [...] | | | | | DESIREE DONNELLY ([id number]) on | | | | | | [...]
--- OUTSIDE RECORDS SUMMARY | ~2020-04-20 | XMS | Encounter Summary ---
Demographics + + + | Address | [address] | | | [place] [address] | + + + | Home Phone [...] [place] | | | | | [address] | | + + + + + Care Team Providers + +------+ + | Care Grapple Crew Leader Name | Role | Phone [...] [place] | | | | | | [address] | | | | | | [phone] | | | +--------+ + + + [...] documented as of this encounter Progress Notes Katahrine Moncada, Technologist - 09/10/2019 10:35 AM PSTReceived [...] CANTU | | | | | | [place] [address] | | | | | | [phone] | | | | | | | | +--------+---------+ + + + documented as of this encounter Visit Diagnoses Not on filedocumented in this encounter"
--- OUTSIDE RECORDS SUMMARY | ~2020-04-20 | XMS | Encounter Summary ---
Demographics + + + | Address | [address] | | | [place] [address] | + + + | Home Phone [...] [place] | | | | | [address] | | + + + + + Care Team Providers + +------+ + | Care Thread Pulling Machine Attendant Name | Role | Phone | + +------+ + | Adriano Patrick MD | PCP | | + +------+ + Encounter Details +--------+ + + + + | Date | Type | Department | Care Team | Description | +--------+ + + + + | 05/16/ | Orders Only | [facility] | Provider, | | | 2018 | | SYSTEM GENERIC OP | MD [address] | | | | | CONVERSION [address] | [address] | | | | | [address] [place], [place] | [place] [address] | | | | | [address] | | | | | | [phone] | | | +--------+ + + + [...] | | | | | [place] [address] | | | | | | [phone] | | | | | | | | +--------+---------+ + + + documented as of this encounter Visit Diagnoses Not on filedocumented in this encounter"
--- OUTSIDE RECORDS SUMMARY | ~2020-04-20 | XMS | Encounter Summary ---
Demographics + + + | Address | [address] | | | [place] [address] | + + + | Home Phone [...] [place] | | | | | [address] | | + + + + + Care Team Providers + +------+ + | Care Road Traffic Controller Name | Role | Phone | [...] | | | | | pain, | [place], [place] | | | | | | bilateral | [address] | | | | | | Degenerative | Phone: | | | | | | disc | [phone] | | | | | | disease, | Fax: | | | | | | lumbar | [phone] | | | | | | Spinal [...] [address] | [address] [place], [place] | (Primary Dx); Knee | | | | [place] | [address] | pain, bilateral; | | | | [address] | | DEGENERATIVE DISC | | | | [phone] | | DISEASE, LUMBAR | | | [...] | | | | | [place] [address] | | | | | | [phone] | | | | | | | [...]
--- OUTSIDE RECORDS SUMMARY | ~2020-04-20 | XMS | Encounter Summary ---
Demographics + + + | Address | [address] | | | [place] [address] | + + + | Home Phone [...] [place] | | | | | [address] | | + + + + + Care Team Providers + +------+ + | Care Outreach Liaison Name | Role | Phone | + +------+ + | Natalee Andersen NP | PCP | | + +------+ + Encounter Details +--------+ + + + + | Date | Type | Department | Care Team | Description | +--------+ + + + + | 06/25/ | Hospital | [facility] | Frandy Teresa, | Diabetes mellitus | | 2014 | Encounter | MED CTR OR INTRA OP | DO [address] | (HCC) (Primary Dx) | | | | [address] | [address] [place], [place] | | | | | [place], [place] | [address] | | | | | [address] | | | | | | [phone] | | | +--------+ + + + [...] + + + +---------+ + + | [place]-3 Fatty | Take 1,000 mg by | [...] this en counter H&P Notes [facility] - 06/21/2014 12:00 AM PDT 14 [...] 06/26/2014 12:00 AM PDT [facility] - 06/12/2014 12:00 AM PDTElectronically signed by Mariah Schulte at 06/12 7:30 AM PDTONBASE SCAN [facility] - 06/11/2014 12:00 AM PDT documented in this encounter Miscellaneous Notes Miscellaneous - ON[facility]AN [facility] - 06/26/2014 12:00 AM PDT lan [...] stenosis, lumbar region, without neurogenic claudication ). Diesel Technician visit is in response to an electronic spiritual care consult request. Patient wa s resting comfortably in bed; she was attended by her mom and dad - both sate nearby and see med very attentive and supportive. Cindy is Evangelical, attends [employer], and is strong in her rangel. She is excited about taking care of her back problem and fe els very secure in Dr. Teresa's care. She welcomed prayer, and expressed appreciation for [facility] visit. Follow up with regular visits, emotional and spiritual support. iscellaneo us - [facility] - 06/25/2014 12:00 AM PDTElectronically signed [...] CANTU | | | | | | [place] [address] | | | | | | [phone] | | | | | | | [...] 12 | 7 - 18 mg/dL | [facility] | | | | | | [facility] | | | | | | MEDICAL | | | | | | CENTER - | | | | | | LABORATORY | | + + + + + + | Creatinine | 0.60 | 0.60 - 1.30 | [facility] | | | | | mg/dL | [facility] | | | | | | MEDICAL | | | | | | CENTER - | | | | | | LABORATORY | | + + + + + + | eGFR if not | >60Comment: GLOMERULAR | >=60 | [facility] | | | | FILTRATION | mL/min/1.73m2 | [facility] | | | TOGOLESE | RATE,ESTIMATED | | MEDICAL | | | | mL/min/1.06p8Ctar than | | CENTER - | | [...] + | [facility] | [address] | [place], [place] | [phone] | | [facility] | | [address] | | | - LABORATORY | | | | + + + + + | [facility] | [address] | [place], [place] | | | [facility] | | [id number] | | | - LABORATORY | | | | + + + + + PTT (06/25/2014 1:58 PM PDT) + +-------+ + + + | Component | Value | Ref Range | Performed | Pathologist | | | | | At | Signature | + +-------+ + + + | aPTT | 28 | 22 - 36 seconds | [facility] | | | | | [...] [address] | [place] | [phone] | | [facility] | | [address] | | | - LABORATORY | | | | + + + + + | [facility] | [address] | [place] | | | [facility] | | [id number] | | | [...] | Time | | seconds | [facility] | | | | [...] + | [facility] | [address] | [place], [place] | [phone] | | [facility] | | [address] | | | - LABORATORY | | | | + + + + + | [facility] | [address] | [place], [place] | | | [facility] | | [address], [facility] | | | - [...] ST. | [address] | [place] | | | [facility] | | [address] | | | - BLOOD BANK | [...] [address] | [place] | [phone] | | [facility] | | [address] | | | - LABORATORY | | | | + + + + + | [facility] | [address] | [place] | | | [facility] | | [address], [facility] | | | - [...]
--- OUTSIDE RECORDS SUMMARY | ~2020-04-20 | XMS | Encounter Summary ---
Demographics + + + | Address | [address] | | | [place] [address] | + + + | Home Phone [...] [place], [place] | | | | | [address] | | + + + + + Care Team Providers + +------+ + | Care Legal Billing Coordinator Name | Role | Phone | + +------+ + PCP | Unavailable | + +------+ + Encounter Details +--------+ + + + + | Date | Type | Department | Care Team | Description | +--------+ + + + + | 12/24/ | Hospital | [facility] | | | | 1998 | Encounter | MED CTR XRAY [address] | | | | | | [place] | | | | | | [place] [address] | | | | | | [phone] | | | +--------+ + + + [...] | | | | | [place] [address] | | | | | | [phone] | | | | | | | | +--------+---------+ + + + documented as of this encounter Visit Diagnoses Not on filedocumented in this encounter"
--- OUTSIDE RECORDS SUMMARY | ~2020-04-20 | XMS | Encounter Summary ---
Demographics + + + | Address | [address] | | | [place] [address] | + + + | Home Phone [...] [place] | | | | | [address] | | + + + + + Care Team Providers + +------+ + | Care Panelboard Assembler Name | Role | Phone | + +------+ + | Hari Samson DO | PCP | | + +------+ + Encounter Details +--------+ + + + + | Date | Type | Department | Care Team | Description | +--------+ + + + + | 06/12/ | Hospital | [facility] | Frandy Teresa, | No Show | | 2014 | Encounter | MED CTR | DO [address] | | | | | ELECTRODIAGNOSTICS | [address] [place], [place] | | | | | [address] [place] | [address] | | | | | [place] [address] | | | | | | [phone] | | | +--------+ + + + [...] [place] | | | | | | [place] [address] | | | | | | [phone] | | | | | | | | +--------+---------+ + + + documented as of this encounter Visit Diagnoses Not on filedocumented in this encounter"
--- OUTSIDE RECORDS SUMMARY | ~2020-04-20 | XMS | Encounter Summary ---
Demographics + + + | Address | [address] | | | [place] [address] | + + + | Home Phone [...] [place] | | | | | [address] | | + + + + + Care Team Providers + +------+ + | Care Cocoa Bean Roaster Name | Role | Phone | [...] + + | 03/07/ | Telephone | [facility] | Katharine Cardona PA-C | Results | | 2014 | | MEDICINE [place] | [address] [facility] | | | | | [address] | [place] [address] | | | | | [place], [place] | [phone] | | | | | [address] | | | | | | [phone] | | | +--------+ + + + [...] Miscellaneous Notes Telephone Encounter - Adrianne Horton, [place] - 03/11/2015 3:41 PM PDTCalled Pat and delivered her results. Patient verbalized good understanding. elephone Encounter - Adrianne Horton , [place] - 03/11/2015 8:40 AM PDTCall placed to [...] CANTU | | | | | | [place] [address] | | | | | | [phone] | | | | | | | | +--------+---------+ + + + documented as of this encounter Visit Diagnoses Not on filedocumented in this encounter"
--- OUTSIDE RECORDS SUMMARY | ~2020-04-20 | XMS | Encounter Summary ---
Demographics + + + | Address | [address] | | | [place] [address] | + + + | Home Phone [...] [place] | | | | | [address] | | + + + + + Care Team Providers + +------+ + | Care Compounding Assistant Name | Role | Phone | [...] updated | | | | | [address], | address | | | | | [address] [place] | | | | | | [place] [address] | | | | | | [phone] | | | +--------+ + + + [...] | | | | | [place] [address] | | | | | | [phone] | | | | | | | | +--------+---------+ + + + documented as of this encounter Visit Diagnoses Not on filedocumented in this encounter"
--- OUTSIDE RECORDS SUMMARY | ~2020-04-20 | XMS | Encounter Summary ---
Demographics + + + | Address | [address] | | | [place] [address] | + + + | Home Phone [...] [place] | | | | | [address] | | + + + + + Care Team Providers + +------+ + | Care Pesticide Use Medical Coordinator Name | Role | Phone | [...] Clinic | | | | | | [facility], [address] | | | | | | [place], [place] | | | | | | [address] | | | | | | [phone] | | | +--------+ + + + [...] as of this encounter Progress Notes Interface, Engineering Technical Analyst In - 12/11/2006 5:03 AM [place] [employer] [...]
--- OUTSIDE RECORDS SUMMARY | ~2020-04-20 | XMS | Encounter Summary ---
Demographics + + + | Address | [address] | | | [place] [address] | + + + | Home Phone [...] [place], [place] | | | | | [address] | | + + + + + Care Team Providers + +------+ + | Care Detail Sergeant Name | Role | Phone | + +------+ + PCP | Unavailable | + +------+ + Encounter Details +--------+ + + + + | Date | Type | Department | Care Team | Description | +--------+ + + + + | 05/23/ | Hospital | [facility] | [place], | | | 2011 | Encounter | MED CTR XRAY [address] | MD [address] | | | | | [place] | [place] | | | | | [place] [address] | [address] | | | | | [phone] | | | +--------+ + + + [...] + + +---------+ + + | [place]-3 Fatty | Take 1,000 mg [...] CANTU | | | | | | [place] [address] | | | | | | [phone] | | | | | | | [...] At | + + + | [facility] Diagnostic Imaging Department | [facility] | | [address] [facility] | [facility] | | LUMBAR SPINE MR [...] Transcribed Date/Time: | | | 05/23/2012 16:55 Door Furring Installer: <Electronically Signed | | | by Adriano Anne MD> 05/23/12 0073 | | + + + + + | Procedure Note | + + | Juan, Rad Conversion - 11/30/2013 5:47 PM [facility] | | Diagnostic Imaging Department [address] [place] [address] | | LUMBAR SPINE MR WITHOUT CONTRAST, [...] 16:37 | |Transcribed Date/Time: 05/23/2012 16:55 | |Door Furring Installer: JOE | |<Electronically Signed by Adriano Anne [...]
--- OUTSIDE RECORDS SUMMARY | ~2020-04-20 | XMS | Encounter Summary ---
Demographics + + + | Address | [address] | | | [place] [address] | + + + | Home Phone [...] [place], [place] | | | | | [address] | | + + + + + Care Team Providers + +------+ + | Care Head Of Operation And Logistics Name | Role | Phone | + +------+ + PCP | Unavailable | + +------+ + Encounter Details +--------+ + + + + | Date | Type | Department | Care Team | Description | +--------+ + + + + | 03/11/ | [facility] | [facility] | Deon Gonzales | | | 2004 | Encounter | MED CTR SLEEP | MD [address] | | | | | [place] [address] | [facility] | | | | | [place], [place] | [place] [address] | | | | | [address] | [phone] | | | | | [phone] | | | +--------+ + + + [...] | | | | | [place] [address] | | | | | | [phone] | | | | | | | | +--------+---------+ + + + documented as of this encounter Visit Diagnoses Not on filedocumented in this encounter"
--- OUTSIDE RECORDS SUMMARY | ~2020-04-20 | XMS | Encounter Summary ---
Demographics + + + | Address | [address] | | | [place] [address] | + + + | Home Phone [...] [place], [place] | | | | | [address] | | + + + + + Care Team Providers + +------+ + | Care Director Video Name | Role | Phone | + +------+ + PCP | Unavailable | + +------+ + Encounter Details +--------+ + + + + | Date | Type | Department | Care Team | Description | +--------+ + + + + | 06/30/ | Hospital | [facility] | | | | 2000 | Encounter | MED CTR EMERGENCY | | | | | | [address] | | | | | | [place] | | | | | | [address] | | | | | | [phone] | | | +--------+ + + + [...] [place] | | | | | | [place] [address] | | | | | | [phone] | | | | | | | | +--------+---------+ + + + documented as of this encounter Visit Diagnoses Not on filedocumented in this encounter"
--- OUTSIDE RECORDS SUMMARY | ~2020-04-20 | XMS | Encounter Summary ---
Demographics + + + | Address | [address] [facility] [address] | | | [place] [address] | + + + | Home Phone [...] [place] | | | | | [address] | | + + + + + [...] | | | | | | [place], | | | | | | [place] [address] | | | | | | [phone] | | | +--------+ + + + [...] | | + +---------+ + + | [facility] DEPARTMENT OF | | | | | RADIOLOGY | | | | + +---------+ + + documented in this encounter Visit Diagnoses Not on filedocumented in this encounter"
--- OUTSIDE RECORDS SUMMARY | ~2020-04-20 | XMS | Encounter Summary ---
Demographics + + + | Address | [address] [address] [address] | | | [place] [address] | + + + | Home Phone [...] [place] | | | | | [address] | | + + + + + Care Team Providers + +------+ + | Care Oil Truck Driver Name | Role | Phone [...] Rd | | | | | | [place], [place] | | | | | | [address] | | | +--------+ + + + [...]
--- OUTSIDE RECORDS SUMMARY | ~2020-04-20 | XMS | Encounter Summary ---
Demographics + + + | Address | [address] | | | [place] [address] | + + + | Home Phone [...] | Organization | [facility] | | | and [place] | + + + | Address | Unknown | + + + | Phone | Unavailable | + + + Support + + + + + | Name | Relationship | Address | Phone | + + + + + | Araceli Sibley | ECON | [place] | | | | | [address] | | + + + + + Care Team Providers + +------+ + | Care Multiple Knife Edge Trimmer Operator Name | Role | Phone | [...] | 02/21/ | Refill | [facility] | Deon Gonzales | Medication Refill | | 2012 | | SLEEP DISORDER [address] | MD [address] | | | | | [address] [place] | [address] [place] | | | | | [place] [address] | [place] [address] | | | | | [phone] | [phone] | | | | | | | [...] - 02/22/2013 9:32 AM [facility]TFaxed [facility] documented in this encount er [...] CANTU | | | | | | [place] [address] | | | | | | [phone] | | | | | | | | +--------+---------+ + + + documented as of this encounter Visit Diagnoses + + | Diagnosis | + + | Obstructive sleep apnea (adult) (pediatric) - Primary | + + documented in this encounter"
--- OUTSIDE RECORDS SUMMARY | ~2020-04-20 | XMS | Encounter Summary ---
Demographics + + + | Address | [address] | | | [place] [address] | + + + | Home Phone [...] [place] | | | | | [address] | | + + + + + Care Team Providers + +------+ + | Care Linen Clerk Name | Role | Phone | [...] | [address] | [place], [place] | (Primary Dx); | | | | [address] | [address] | Essential | | | | [place] | | hypertension; | | | | [address] | | Irregular heartbeat | | | | [phone] | | | +--------+---------+ + + + [...] rtake in exercise. She recently got a Aud[place] and has been walking him more regularly. [...] by mouth daily. Blood Glucose Monitoring Suppl (NetLex VERIO FLEX SYSTEM) w/Device KIT by Does not ap ply route. budesonide-formoterol (SYMBICORT) 160-4.5 MCG/ACT inhaler Inhale 2 puffs into the lungs 2 (two) times daily. Calcium Carbonate Antacid 1000 MG tablet Take 1,000 mg by mouth 3 (three) times daily. Cholecalciferol (VITAMIN D3) 29619 units CAPS Take by mouth once a [...] | 04/24/ | Office | Cardiology | Roxannmiguel ángelDora | | | 2020 | Visit | | CAROLINE Mendez [address] | | | | | | [address] | | | | | | [place] [address] | | | | | | [phone] | | | | | | | [...]
--- OUTSIDE RECORDS SUMMARY | ~2020-04-20 | XMS | Encounter Summary ---
Demographics + + + | Address | [address] | | | [place] [address] | + + + | Home Phone [...] [place] | | | | | [address] | | + + + + + Care Team Providers + +------+ + | Care Allergy And Immunology Specialist Name | Role | Phone | [...] [place] | | | | | | [address] | | | | | | [phone] | | | +--------+ + + + [...] | | | | | [place] [address] | | | | | | [phone] | | | | | | | | +--------+---------+ + + + documented as of this encounter Visit Diagnoses Not on filedocumented in this encounter"
--- OUTSIDE RECORDS SUMMARY | ~2020-04-20 | XMS | Encounter Summary ---
Demographics + + + | Address | [address] | | | [place] [address] | + + + | Home Phone [...] [place] | | | | | [address] | | + + + + + Care Team Providers + +------+ + | Care Supervisor Ditching Name | Role | Phone | + [...] | 02/01/ | Telephone | [facility] | Frandy Teresa, | Imaging Only | | 2019 | | NEUROSURGERY [address] | DO [address] | | | | | [address] | [address] [place], [place] | | | | | [place], [place] | [id number] | | | | | [address] | | | | | | [phone] | | | +--------+ + + + [...] [address] | | | | | | [place] [address] | | | | | | [phone] | | | | | | | | +--------+---------+ + + + documented as of this encounter Visit Diagnoses Not on filedocumented in this encounter"
--- OUTSIDE RECORDS SUMMARY | ~2020-04-20 | XMS | Encounter Summary ---
Demographics + + + | Address | [address] | | | [place] [address] | + + + | Home Phone [...] [place] | | | | | [address] | | + + + + + Care Team Providers + +------+ + | Care Developer Relations Manager Name | Role | Phone | + +------+ + | Basim Bolanos MD | PCP | | + +------+ + Encounter Details +--------+ + + + + | Date | Type | Department | Care Team | Description | +--------+ + + + + | 01/24/ | Abstract | [facility] [place] | [facility], | | | 2012 | | GASTROENTEROLOGY | FORTUNATO Thomas [address] | | | | | [address] | [address] | | | | | [address] [place], [place] | [place], [place] | | | | | [address] | [address] | | | | | [phone] | | | +--------+ + + + [...] CANTU | | | | | | [place] [address] | | | | | | [phone] | | | | | | | | +--------+---------+ + + + documented as of this encounter Visit Diagnoses Not on filedocumented in this encounter"
--- OUTSIDE RECORDS SUMMARY | ~2020-04-20 | XMS | Encounter Summary ---
Demographics + + + | Address | [address] | | | [place] [address] | + + + | Home Phone [...] + | Araceli Sibley | ECON | [place], [place] | | | | | [address] | | + + + + + Care Team Providers + +------+ + | Care Heel Gummer Name | Role | Phone | + +------+ + PCP | Unavailable | + +------+ + Encounter Details +--------+ + + + + | Date | Type | Department | Care Team | Description | +--------+ + + + + | 04/01/ | Hospital | [facility] | | | | 1998 | Encounter | MED CTR XRAY [address] | | | | | | [address] | | | | | | [place] [address] | | | | | | [phone] | | | +--------+ + + + [...] | | | | | [place] [address] | | | | | | [phone] | | | | | | | | +--------+---------+ + + + documented as of this encounter Visit Diagnoses Not on filedocumented in this encounter"
--- OUTSIDE RECORDS SUMMARY | ~2020-04-20 | XMS | Encounter Summary ---
Demographics + + + | Address | [address] | | | [place] [address] | + + + | Home Phone [...] [place], [place] | | | | | [address] | | + + + + + Care Team Providers + +------+ + | Care Svp Marketing Name | Role | Phone | + +------+ + PCP | Unavailable | + +------+ + Encounter Details +--------+ + + + + | Date | Type | Department | Care Team | Description | +--------+ + + + + | 02/16/ | Hospital | [facility] | | | | 1994 | Encounter | MED CTR LABORATORY | | | | | | [address] | | | | | | [place] | | | | | | [address] | | | | | | [phone] | | | +--------+ + + + [...] CANTU | | | | | | [place] [address] | | | | | | [phone] | | | | | | | | +--------+---------+ + + + documented as of this encounter Visit Diagnoses Not on filedocumented in this encounter"
--- OUTSIDE RECORDS SUMMARY | ~2020-04-20 | XMS | Encounter Summary ---
Demographics + + + | Address | [address] | | | [place] [address] | + + + | Home Phone [...] [place] | | | | | [address] | | + + + + + Care Team Providers + +------+ + | Care Braider Operator Name | Role | Phone | [...] + + | 02/06/ | Telephone | [facility] | Roxannmiguel ángelDora | Patient Concerns | | 2020 | | CARDIOLOGY [place] | [address]OLINE Mendez [address] | | | | | [address] | [address] | | | | | [address] | [place] [address] | | | | | [place] | [phone] | | | | | [address] | | | | | | [phone] | | | +--------+ + + + [...] | | | | | [place] [address] | | | | | | [phone] | | | | | | | | +--------+---------+ + + + documented as of this encounter Visit Diagnoses Not on filedocumented in this encounter"
--- OUTSIDE RECORDS SUMMARY | ~2020-04-20 | XMS | Encounter Summary ---
Demographics + + + | Address | [address] | | | [place] [address] | + + + | Home Phone [...] [place] | | | | | [address] | | + + + + + Care Team Providers + +------+ + | Care Gauge Maker Apprentice Name | Role | Phone [...] + + | 10/22/ | Telephone | [facility] | Susu Peralta, | Other | | 2019 | | CARDIOLOGY [place] Nath RN | | | | | [address] | | | | | | [place], [place] | | | | | | [address] | | | | | | [phone] | | | +--------+ + + + [...] | | | | | [place] [address] | | | | | | [phone] | | | | | | | | +--------+---------+ + + + documented as of this encounter Visit Diagnoses Not on filedocumented in this encounter"
--- OUTSIDE RECORDS SUMMARY | ~2020-04-20 | XMS | Encounter Summary ---
Demographics + + + | Address | [address] | | | [place] [address] | + + + | Home Phone [...] [place] | | | | | [address] | | + + + + + Care Team Providers + +------+ + | Care Forestry Farm Laborer Name | Role | Phone [...] updated | | | | | [address], | address | | | | | [address] [place] | | | | | | [place] [address] | | | | | | [phone] | | | +--------+ + + + [...] stroke work up she had done at [facility] was quite thorough and she did not have evidence of a stroke on MRI. We do not need to do f magdalena testing at this point, which is great [...] [address] | | | | | | [place] [address] | | | | | | [phone] | | | | | | | | +--------+---------+ + + + documented as of this encounter Visit Diagnoses Not on filedocumented in this encounter"
--- OUTSIDE RECORDS SUMMARY | ~2020-04-20 | XMS | Encounter Summary ---
Demographics + + + | Address | [address] | | | [place] [address] | + + + | Home Phone [...] [place], [place] | | | | | [address] | | + + + + + Care Team Providers + +------+ + | Care Clinical Programmer Name | Role | Phone | + +------+ + PCP | Unavailable | + +------+ + Encounter Details +--------+ + + + + | Date | Type | Department | Care Team | Description | +--------+ + + + + | 01/25/ | Hospital | [facility] | | | | 2002 | Encounter | MED CTR XRAY [address] | | | | | | [address] | | | | | | [place] [address] | | | | | | [phone] | | | +--------+ + + + [...] | | | | | [place] [address] | | | | | | [phone] | | | | | | | | +--------+---------+ + + + documented as of this encounter Visit Diagnoses Not on filedocumented in this encounter"
--- OUTSIDE RECORDS SUMMARY | ~2020-04-20 | XMS | Encounter Summary ---
Demographics + + + | Address | [address] | | | [place] [address] | + + + | Home Phone [...] [place] | | | | | [address] | | + + + + + Care Team Providers + +------+ + | Care Engineering Agent Name | Role | Phone | [...] + + | 07/10/ | Telephone | [facility] | Frandy Teresa, | Imaging Only (1 year | | 2014 | | NEUROSURGERY [address] | DO [address] | x-ray ) | | | | [address] | [address] [place], [place] | | | | | [place], [place] | [address] | | | | | [address] | | | | | | [phone] | | | +--------+ + + + [...] [address] | | | | | | [place] [address] | | | | | | [phone] | | | | | | | | +--------+---------+ + + + documented as of this encounter Visit Diagnoses Not on filedocumented in this encounter"
--- OUTSIDE RECORDS SUMMARY | ~2020-04-20 | XMS | Encounter Summary ---
Demographics + + + | Address | [address] | | | [place] [address] | + + + | Home Phone [...] [place] | | | | | [address] | | + + + + + Care Team Providers + +------+ + | Care Inspector And Hand Packager Name | Role | Phone | + [...] + | 05/02/ | Telephone | [facility] | Frandy Teresa, | Other | | 2013 | | NEUROSURGERY [address] | DO [address] | | | | | [address] | [address] [place], [place] | | | | | [place], [place] | [id number] | | | | | [address] | | | | | | [phone] | | | +--------+ + + + [...] | [facility] [place] [address] | | | | | | [phone] | | | | | | | | +--------+---------+ + + + documented as of this encounter Visit Diagnoses Not on filedocumented in this encounter"
--- OUTSIDE RECORDS SUMMARY | ~2020-04-20 | XMS | Encounter Summary ---
Demographics + + + | Address | [address] | | | [place] [address] | + + + | Home Phone [...] [place], [place] | | | | | [address] | | + + + + + Care Team Providers + +------+ + | Care Hammer Mill Operator Name | Role | Phone [...] | | | | | | [address] [facility] | | | | | | [place], [place] | | | | | | [address] | | | | | | [phone] | | | +--------+ + + + [...] | | | | | [place] [address] | | | | | | [phone] | | | | | | | | +--------+---------+ + + + documented as of this encounter Visit Diagnoses Not on filedocumented in this encounter"
--- OUTSIDE RECORDS SUMMARY | ~2020-04-20 | XMS | Encounter Summary ---
Demographics + + + | Address | [address] | | | [place] [address] | + + + | Home Phone [...] [place] | | | | | [address] | | + + + + + Care Team Providers + +------+ + | Care Keysmith Name | Role | Phone | + +------+ + | Basim Bolanos MD | PCP | | + +------+ + Encounter Details +--------+ + + + + | Date | Type | Department | Care Team | Description | +--------+ + + + + | 02/22/ | Abstract | [facility] [place] | [facility], | | | 2012 | | GASTROENTEROLOGY | FORTUNATO Thomas [address] | | | | | [address] | [address] | | | | | [address] [place], [place] | [place], [place] | | | | | [address] | [address] | | | | | [phone] | | | +--------+ + + + [...] CANT[address] | | | | | | [place] [address] | | | | | | [phone] | | | | | | | | +--------+---------+ + + + documented as of this encounter Visit Diagnoses Not on filedocumented in this encounter"
--- OUTSIDE RECORDS SUMMARY | ~2020-04-20 | XMS | Encounter Summary ---
Demographics + + + | Address | [address] | | | [place] [address] | + + + | Home Phone [...] | [address] | | | | | [place] | | | | | [address] | | + + + + + Care Team Providers + +------+ + | Care Termination Clerk Name | Role | Phone | [...] | | | | | | [place] [address] | | | | | | [phone] | | | | | | | [...] in | | | | | | [place] with a | | | | | [...] | | | | | | Laboratory, [place], | | | | | | [place], delivered | | | | | | [...] by | | | | | | dlzsvfcdAkf-Hom-R: | | | | | | Increased [...] istryMHC-1: | | | | | | [id number] stain | | | | | | [...] | + + + + + | [facility] | [address] | [place] [address] | | | PATHOLOGY | [place] FELIX | | | + + + + + documented in this encounter Visit Diagnoses Not on filedocumented in this encounter
--- OUTSIDE RECORDS SUMMARY | ~2020-04-20 | XMS | Encounter Summary ---
Demographics + + + | Address | [address] | | | [place] [address] | + + + | Home Phone [...] [place], [place] | | | | | [address] | | + + + + + Care Team Providers + +------+ + | Care Spike Machine Feeder Name | Role | Phone | + +------+ + PCP | Unavailable | + +------+ + Encounter Details +--------+ + + + + | Date | Type | Department | Care Team | Description | +--------+ + + + + | 06/17/ | Hospital | [facility] | | | | 1991 - | Encounter | MED CTR GENERIC PSY | | | | | | CONV DEPT [address] | | | | 06/18/ | | [address] [place], | | | | 1991 | | [place] [address] | | | | | | [phone] | | | +--------+ + + + [...] | | | | | [place] [address] | | | | | | [phone] | | | | | | | | +--------+---------+ + + + documented as of this encounter Visit Diagnoses Not on filedocumented in this encounter"
--- OUTSIDE RECORDS SUMMARY | ~2020-04-20 | XMS | Encounter Summary ---
Demographics + + + | Address | [address] | | | [place] [address] | + + + | Home Phone [...] [place] | | | | | [address] | | + + + + + Care Team Providers + +------+ + | Care Gatekeeper Name | Role | Phone | + [...] | | | | | ECHO | [place], [place] | | | | | | Complete | [address] | | | | | | | Phone: | | | | | | | [phone] | | | | | | | Fax: | | | | | | | [phone] | | + +--------+ + + + + Reason for Visit + + + | Reason | Comments | + + + | Follow-up | 6 month | + + + Encounter Details +--------+---------+ + + + | Date | Type | Department | Care Team | Description | +--------+---------+ + + + | 04/03/ | Office | [facility] | Desiree Peterson DO | Left bundle branch | | 2020 | Visit | CARDIOLOGY [place] | [address] | block (Primary Dx); | | | | [address] | [place], [place] | Benign essential | | | | [address] | [address] | HTN; New onset left | | | | [place], [place] | | bundle branch block | | | | [address] | | (LBBB); Obesity, | | | | [phone] | | Class III, BMI | | | | | | 40-49.9 (morbid | | | | | | obesity) ([facility]); | | | | | [...] Peterson DO - 04/03/2020 10:20 AM PDT [facility] Cardiology Follow Up Note Reason [...] rtake in exercise. She recently got a [place] and has been walking him more regularly. 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 Blood Glucose Monitoring Suppl (Caustic GraphicsIO FLEX SYSTEM) w/Device KIT by Does not ap ply route. budesonide-formoterol (SYMBICORT) 160-4.5 MCG/ACT inhaler Inhale 2 puffs into the lungs 2 (two) times daily. Calcium Carbonate Antacid 1000 MG tablet Take 1,000 mg by mouth 3 (three) times daily. Cholecalciferol (VITAMIN D3) 77934 units CAPS Take by mouth once a [...] ALT 76, alkaline phosphatase 134. Labs: 10/20/2019:( [facility]) CBC: WBC 7.1, RBC 4.93, [...] CANTU | | | | | | [place] [address] | | | | | | [phone] | | | | | | | [...] | | | | | DESIREE DONNELLY (5490) on | | | | | | [...]
--- OUTSIDE RECORDS SUMMARY | ~2020-04-20 | XMS | Encounter Summary ---
Demographics + + + | Address | [address] | | | [place] [address] | + + + | Home Phone [...] [place] | | | | | [address] | | + + + + + Care Team Providers + +------+ + | Care Payroll Director Name | Role | Phone | [...] [place] | | | | | | [address] | | | | | | [phone] | | | +--------+ + + + [...] [place] | | | | | | [place] [address] | | | | | | [phone] | | | | | | | | +--------+---------+ + + + documented as of this encounter Visit Diagnoses Not on filedocumented in this encounter"
--- OUTSIDE RECORDS SUMMARY | ~2020-04-20 | XMS | Encounter Summary ---
Demographics + + + | Address | [address] | | | [place] [address] | + + + | Home Phone [...] [place] | | | | | [address] | | + + + + + Care Team Providers + +------+ + | Care Sales Service Technician Name | Role | Phone | + +------+ + | Natalee Andersen NP | PCP | | + +------+ + Encounter Details +--------+ + + + + | Date | Type | Department | Care Team | Description | +--------+ + + + + | 06/25/ | Hospital | [facility] | Latricia Feliciano | | | 2014 | Encounter | MED CTR ACUTE | D, PT [address] | | | | | PHYSICAL THERAPY | [place]FTALIE [place] | | | | | [address] | [address] | | | | | [place] [address] | | | | | | [phone] | | | +--------+ + + + [...] | | | | | [place] [address] | | | | | | [phone] | | | | | | | | +--------+---------+ + + + documented as of this encounter Visit Diagnoses Not on filedocumented in this encounter"
--- OUTSIDE RECORDS SUMMARY | ~2020-04-20 | XMS | Encounter Summary ---
Demographics + + + | Address | [address] | | | [place] [address] | + + + | Home Phone [...] [place] | | | | | [address] | | + + + + + Care Team Providers + +------+ + | Care Emr Implementation Specialist Name | Role | Phone | + +------+ + | Natalee Andersen NP | PCP | | + +------+ + Encounter Details +--------+ + + + + | Date | Type | Department | Care Team | Description | +--------+ + + + + | 05/02/ | Hospital | [facility] | Frandy Teresa, | Back pain | | 2014 | Encounter | MED CTR XRAY [address] | DO [address] | | | | | [place] | [address] [place] | | | | | [place] [address] | [address] | | | | | [phone] | | | +--------+ + + + [...] + + + +---------+ + + | [place]-3 Fatty | Take 1,000 mg by | [...] CANTU | | | | | | [place] [address] | | | | | | [phone] | | | | | | | [...] + | MISCELLANEOUS LAB | | | [phone] | + +---------+ + + | MISCELANIOUS LAB | | | [phone] | + +---------+ + + documented in this encounter Visit Diagnoses + + | Diagnosis | + + | Back pain Backache, unspecified | + + documented in this encounter"
--- OUTSIDE RECORDS SUMMARY | ~2020-04-20 | XMS | Encounter Summary ---
Demographics + + + | Address | [address] | | | [place] [address] | + + + | Home Phone [...] [place] | | | | | [address] | | + + + + + Care Team Providers + +------+ + | Care Electrical Electronics Engineer Name | Role | Phone [...] + + | 07/30/ | Telephone | [facility] | Ashley Chávez | Other (Patient | | 2019 | | CARDIOLOGY [place]ad, Medical Consultant | mariela ) | | | | [address] | | | | | | [facility] [place] | | | | | | [address] | | | | | | [phone] | | | +--------+ + + + [...] Miscellaneous Notes Telephone Encounter - Ashley Chávez Medical Consultant - 07/30/2019 1:40 PM Shila norton to patient to advise of Dr. Peterson's notes. Patient stated understanding. BRODY:MANGO. el ephone Encounter - Ashley Chávez, Medical Consultant - 07/30/2019 1:40 PM PDT----- Mess age [...] Thanks ----- Message ----- From: Ashley Chávez Medical Consultant Sent: 07/30/2019 11:47 To: Desiree Peterson DO [...] | | | | | [place] [address] | | | | | | [phone] | | | | | | | | +--------+---------+ + + + documented as of this encounter Visit Diagnoses Not on filedocumented in this encounter"
--- OUTSIDE RECORDS SUMMARY | ~2020-04-20 | XMS | Encounter Summary ---
Demographics + + + | Address | [address] | | | [place] [address] | + + + | Home Phone [...] [place] | | | | | [address] | | + + + + + Care Team Providers + +------+ + | Care Senior Core Java Developer Name | Role | Phone [...] | Frandy Simons DO | [address] | | | | | of skin | [address] | [place], | | | | | sensation | [address] | [place] | | | | | Arthrodesis | [place], [place] | [address] | | | | | status Left | [address] | Phone: | | | | | leg | Phone: | [phone] | | | | | weakness | [phone] | Fax: | | | | | Procedures | Fax: | [phone] | | | | | MRI Lumbar | [phone] | | | | | | Spine [...] | Frandy Simons DO | [address] | | | | | of skin | [address] | [place], | | | | | sensation | [address] | [place] | | | | | Arthrodesis | [place] | [address] | | | | | status Left | [address] | Phone: | | | | | leg | Phone: | [phone] | | | | | weakness | [phone] | Fax: | | | | | Procedures | Fax: | [phone] | | | | | MRI Lumbar | [phone] | | | | | | Spine wo | | | | | | | Contrast | | | +--------+--------+ + + + + Encounter Details +--------+ + + + + | Date | Type | Department | Care Team | Description | +--------+ + + + + | 08/19/ | Hospital | [facility] | Frandy Teresa, | Status post lumbar | | 2013 | Encounter | MED CTR MRI [address] | DO [address] | spinal fusion; Left | | | | [place], | [address] [place] | leg numbness; Left | | | | [place] [address] | [address] | leg weakness | | | | [phone] | | | +--------+ + + + [...] | | | | | [place] [address] | | | | | | [phone] | | | | | | | [...] the round structure with high T1 and S0rcsdov in the right L3 vertebral | | [...] + | MISCELLANEOUS LAB | | | [phone] | + +---------+ + + | MISCELANIOUS LAB | | | [phone] | + +---------+ + + documented in [...]
--- OUTSIDE RECORDS SUMMARY | ~2020-04-20 | XMS | Encounter Summary ---
Demographics + + + | Address | [address] | | | [place] [address] | + + + | Home Phone [...] [place] | | | | | [address] | | + + + + + Care Team Providers + +------+ + | Care Supervisor Metal Hanging Name | Role | Phone | + [...] + + | 04/30/ | Office | [facility] | Russell Alfaro PA | ROGERS on CPAP (Primary | | 2015 | Visit | SLEEP DISORDER [address] | [address] | Dx) | | | | [address] | [place] | | | | | [place] [phone] | [id number] | | | | | [phone] | | | +--------+---------+ + + + [...] encounter Progress Notes Gail Cadet, Master of DesignPax - 04/30/2015 11:12 AM PDTFormatting of this note might be khoi rivas from the original. 04/30/15 1100 [place] Depression Inventory-II Depression Score 9 - Minimal depression Insomnia Severity Index Insomnia Severity Index 13 [place] Sleepiness Scale Sitting and reading 3 Watching [...] appro priate paperwork. Thirty minutes were spent [id number], with the majority of time spent i [...] C[facility] | | | | | | [place] [address] | | | | | | [phone] | | | | | | | | +--------+---------+ + + + documented as of this encounter Visit Diagnoses + + | Diagnosis | + + | ROGERS on CPAP - Primary Obstructive sleep apnea (adult) (pediatric) | + + documented in this encounter"
--- OUTSIDE RECORDS SUMMARY | ~2020-04-20 | XMS | Encounter Summary ---
Demographics + + + | Address | [address] | | | [place] [address] | + + + | Home Phone [...] [place] | | | | | [address] | | + + + + + Care Team Providers + +------+ + | Care Bleach Range Operator Name | Role | Phone | [...] | 09/26/ | Refill | [facility] | Frandy Teresa, | Medication Refill | | 2013 | | NE[address]ERY [address] | DO [address] | | | | | [facility] | [address] [place], [place] | | | | | [place], [place] | [id number] | | | | | [address] | | | | | | [phone] | | | +--------+--------+ + + + [...] will come today. [facility] - Megan Schreiber RN [...] | | | | [place] [address] | | | | | | [phone] | | | | | | | | +--------+---------+ + + + documented as of this encounter Visit Diagnoses Not on filedocumented in this encounter"
--- OUTSIDE RECORDS SUMMARY | ~2020-04-20 | XMS | Encounter Summary ---
Demographics + + + | Address | [address] | | | [place] [address] | + + + | Home Phone [...] [place], [place] | | | | | [address] | | + + + + + Care Team Providers + +------+ + | Care Senior Energy Consultant Name | Role | Phone | + +------+ + PCP | Unavailable | + +------+ + Encounter Details +--------+ + + + + | Date | Type | Department | Care Team | Description | +--------+ + + + + | 03/13/ | Hospital | [facility] | | | | 1996 - | Encounter | MED CTR GENERIC OP | | | | | | CONV DEPT [address] | | | | 03/21/ | | [address], | | | | 1996 | | [place] [address] | | | | | | [phone] | | | +--------+ + + + [...] | | | | | [place] [address] | | | | | | [phone] | | | | | | | | +--------+---------+ + + + documented as of this encounter Visit Diagnoses Not on filedocumented in this encounter"
--- OUTSIDE RECORDS SUMMARY | ~2020-04-20 | XMS | Encounter Summary ---
Demographics + + + | Address | [address] | | | [place] [address] | + + + | Home Phone [...] [facility] | | [...] [place] | | | | | [address] | | + + + + + Care Team Providers + +------+ + | Care Power Generation Engineer Name | Role | Phone | [...] [facility] | [place] [address] | | | | | [place] | [phone] | | | | | [address] | | | | | | [phone] | | | +--------+ + + + [...] Percocet prescription and faxed it to them ([facility]) this morning like I told them I would. Thank you for doing that, but it should not have been necessary. Telephone Encounter - Lincoln Cheema MD - 07/06/2014 8:59 PM PDTCalled regarding increased p ain. She was taking percocet. She was discharged to a [facility] on hydrocodone. I talked to the [...] [place] | | | | | | [place] [address] | | | | | | [phone] | | | | | | | | +--------+---------+ + + + documented as of this encounter Visit Diagnoses Not on filedocumented in this encounter"
--- OUTSIDE RECORDS SUMMARY | ~2020-04-20 | XMS | Encounter Summary ---
Demographics + + + | Address | [address] | | | [place] [address] | + + + | Home Phone [...] [place], [place] | | | | | [address] | | + + + + + Care Team Providers + +------+ + | Care Anesthesia Director Name | Role | Phone | + +------+ + PCP | Unavailable | + +------+ + Encounter Details +--------+ + + + + | Date | Type | Department | Care Team | Description | +--------+ + + + + | 05/25/ | Hospital | [facility] | | | | 1991 | Encounter | MED CTR LABORATORY | | | | | | [address] | | | | | | [place] | | | | | | [address] | | | | | | [phone] | | | +--------+ + + + [...] | | | | | | [place] [address] | | | | | | [phone] | | | | | | | | +--------+---------+ + + + documented as of this encounter Visit Diagnoses Not on filedocumented in this encounter"
--- OUTSIDE RECORDS SUMMARY | ~2020-04-20 | XMS | Encounter Summary ---
Demographics + + + | Address | [address] | | | [place] [address] | + + + | Home Phone [...] [place] | | | | | [address] | | + + + + + Care Team Providers + +------+ + | Care Bus System Operator Name | Role | Phone [...] | | | | | | | [address] | | | | | | | Phone: | | | | | | | [phone] | | | | | | | Fax: | | | | | | | [phone] | | +--------+ + + + + + Reason for Visit + + + | Reason | Comments | + + + | Follow-up | 3 mo po | + + + Encounter Details +--------+---------+ + + + | Date | Type | Department | Care Team | Description | +--------+---------+ + + + | 09/27/ | Office | [facility] | Frandy Teresa, | Lumbar spondylosis | | 2013 | Visit | NEUR[address]URGERY [address] | DO [address] | (Primary Dx); S/P | | | | [address] | [address] [place], [place] | lumbar fusion | | | | [place], [place] | [address] | | | | | [address] | | | | | | [phone] | | | +--------+---------+ + + + [...] [facility] [address] [place] [address] FAX: NEUROSURGERY FOLLOW-UP CHIEF COMPLAINT: Chief Complaint [...] Surgeon: Frandy castellanos DO; Location: [facility] MAIN OR CURRENT MEDICATIONS: Current Outpatient [...] Take 15 mg by mouth nightl y. [place]-3 Fatty Acids (FISH OIL CONCENTRATE) 1000 MG [...] encounter Miscellaneous Notes Miscellaneous - ONBRUCE ABREU [facility] - 09/27/2014 12:00 AM PST [...] CANTU | | | | | | [place] [address] | | | | | | [phone] | | | | | | | [...]
--- OUTSIDE RECORDS SUMMARY | ~2020-04-20 | XMS | Encounter Summary ---
Demographics + + + | Address | [address] | | | [place] [address] | + + + | Home Phone [...] [place] | | | | | [address] | | + + + + + Care Team Providers + +------+ + | Care Web Applications Architect Name | Role | Phone | + +------+ + | Natalee Andersen NP | PCP | | + +------+ + Encounter Details +--------+ + + + + | Date | Type | Department | Care Team | Description | +--------+ + + + + | 06/25/ | Hospital | [facility] | Frandy Teresa, | Diabetes mellitus | | 2014 | Encounter | MED CTR OR INTRA OP | DO [address] | (HCC) (Primary Dx) | | | | [address] | [address] [place], [place] | | | | | [place], [place] | [address] | | | | | [address] | | | | | | [phone] | | | +--------+ + + + [...] + + + +---------+ + + | [place]-3 Fatty | Take 1,000 mg by | [...] this en counter H&P Notes [facility]APITO [facility]RE[facility] - 06/21/2014 12:00 AM PDT [...] - 06/26/2014 12:00 AM PDT [facility]AN [facility] - 06/12/2014 12:00 AM PDTElectronically signed by Mariah Schulte at 06/12 7:30 AM PDTONBASE SCAN [facility] - 06/11/2014 12:00 AM PDT documented in this encounter Miscellaneous Notes Miscellaneous - ONBASE SCAN [facility] - 06/26/2014 12:00 AM PDT [...] stenosis, lumbar region, without neurogenic claudication ). Supervisor Soldering visit is in response to an electronic spiritual care consult request. Patient wa s resting comfortably in bed; she was attended by her mom and dad - both sate nearby and see med very attentive and supportive. Cindy is [employer], attends [employer], and is strong in her rangel. She is excited about taking care of her back problem and fe els very secure in Dr. Teresa's care. She welcomed prayer, and expressed appreciation for [facility] visit. Follow up with regular visits, emotional and spiritual support. iscellaneo us - ONBASE SC[facility] - 06/25/2014 12:00 AM PDTElectronically [...] CANTU | | | | | | [place] [address] | | | | | | [phone] | | | | | | | [...] 12 | 7 - 18 mg/dL | [facility] | | | | | | [facility] | | | | | | MEDICAL | | | | | | CENTER - | | | | | | LABORATORY | | + + + + + + | Creatinine | 0.60 | 0.60 - 1.30 | [facility] | | | | | mg/dL | [facility] | | | | | | MEDICAL | | | | | | CENTER - | | | | | | LABORATORY | | + + + + + + | eGFR if not | >60Comment: GLOMERULAR | >=60 | [facility] | | | | FILTRATION | mL/min/1.73m2 | [facility] | | | [place] | RATE,ESTIMATED | | MEDICAL | | | | mL/min/1.20j5Bbrb than | | CENTER - | | [...] + | [facility] | [address] | [place], [place] | [phone] | | [facility] | | [address] | | | - LABORATORY | | | | + + + + + | [facility] | [address] | [place], [place] | | | [facility] | | [address] | | | - [...] [address] | [place] | [phone] | | [facility] | | [address] | | | - LABORATORY | | | | + + + + + | [facility] | [address] | [place] | | | [facility] | | [address] | | | - [...] + | [facility] | [address] | [place], [place] | [phone] | | [facility] | | [address] | | | - LABORATORY | | | | + + + + + | [facility] | [address] | [place], [place] | | | [facility] | | [address], [facility] | | | - LABORATORY [...] ST. | [address] | [place] | | | [facility] | | [address] | | | - BLOOD BANK | [...] [address] | [place] | [phone] | | [facility] | | [address] | | | - LABORATORY | | | | + + + + + | [facility] | [address] | [place] | | | [facility] | | [address], [facility] | | | - LABORATORY [...]
--- OUTSIDE RECORDS SUMMARY | ~2020-04-20 | XMS | Encounter Summary ---
Demographics + + + | Address | [address] | | | [place] [address] | + + + | Home Phone [...] [place] | | | | | [address] | | + + + + + Care Team Providers + +------+ + | Care Produce Assistant Name | Role | Phone | [...] updated | | | | | [address], | address | | | | | [address] [place] | | | | | | [place] [address] | | | | | | [phone] | | | +--------+ + + + [...] stroke work up she had done at [place] was quite thorough and she did not [...] CANTU | | | | | | [place] [address] | | | | | | [phone] | | | | | | | | +--------+---------+ + + + documented as of this encounter Visit Diagnoses Not on filedocumented in this encounter"
--- OUTSIDE RECORDS SUMMARY | ~2020-04-20 | XMS | Encounter Summary ---
Demographics + + + | Address | [address] | | | [place] [address] | + + + | Home Phone [...] [place], [place] | | | | | [address] | | + + + + + Care Team Providers + +------+ + | Care Railway Signalling Engineer Name | Role | Phone | + +------+ + PCP | Unavailable | + +------+ + Encounter Details +--------+ + + + + | Date | Type | Department | Care Team | Description | +--------+ + + + + | 06/30/ | Hospital | [facility] | | | | 2000 | Encounter | MED CTR EMERGENCY | | | | | | [address] | | | | | | [place] | | | | | | [address] | | | | | | [phone] | | | +--------+ + + + [...] [place] | | | | | | [place] [address] | | | | | | [phone] | | | | | | | | +--------+---------+ + + + documented as of this encounter Visit Diagnoses Not on filedocumented in this encounter"
--- OUTSIDE RECORDS SUMMARY | ~2020-04-20 | XMS | Encounter Summary ---
Demographics + + + | Address | [address] | | | [place] [address] | + + + | Home Phone [...] [place], [place] | | | | | [address] | | + + + + + Care Team Providers + +------+ + | Care Nuclear Fuel Processing Technician Name | Role | Phone | [...] [address] | | | | | | [place], [place] | | | | | | [address] | | | | | | [phone] | | | +--------+ + + + [...] | | | | | [place] [address] | | | | | | [phone] | | | | | | | | +--------+---------+ + + + documented as of this encounter Visit Diagnoses Not on filedocumented in this encounter
--- OUTSIDE RECORDS SUMMARY | ~2020-04-20 | XMS | Encounter Summary ---
Demographics + + + | Address | [address] | | | [place] [address] | + + + | Home Phone [...] [place] | | | | | [address] | | + + + + + Care Team Providers + +------+ + | Care Electrical Repairer Name | Role | Phone | [...] [place] | | | | | | [address] | | | | | | [phone] | | | +--------+ + + + [...] [place] | | | | | | [place] [address] | | | | | | [phone] | | | | | | | | +--------+---------+ + + + documented as of this encounter Visit Diagnoses Not on filedocumented in this encounter"
--- OUTSIDE RECORDS SUMMARY | ~2020-04-20 | XMS | Encounter Summary ---
Demographics + + + | Address | [address] | | | [place] [address] | + + + | Home Phone [...] [place] | | | | | [address] | | + + + + + Care Team Providers + +------+ + | Care Nascar Racer Name | Role | Phone | [...] | Telephone | [facility] [place] | [facility], | [facility] | | 2012 | | GASTROENTEROLOGY | [place] [address] | | | | | [address] | [address] | | | | | [address] [place], [place] | [place], [place] | | | | | [address] | [address] | | | | | [phone] | | | +--------+ + + + [...] C[place] | | | | | | [place] [address] | | | | | | [phone] | | | | | | | | +--------+---------+ + + + documented as of this encounter Visit Diagnoses Not on filedocumented in this encounter"
--- OUTSIDE RECORDS SUMMARY | ~2020-04-20 | XMS | Encounter Summary ---
Demographics + + + | Address | [address] | | | [place] [address] | + + + | Home Phone [...] [place] | | | | | [address] | | + + + + + Care Team Providers + +------+ + | Care Stunt Woman Name | Role | Phone | + [...] [place] | | | | | | [address] | | | | | | [phone] | | | +--------+ + + + [...] [place] | | | | | | [place] [address] | | | | | | [phone] | | | | | | | | +--------+---------+ + + + documented as of this encounter Visit Diagnoses Not on filedocumented in this encounter"
--- OUTSIDE RECORDS SUMMARY | ~2020-04-20 | XMS | Encounter Summary ---
Demographics + + + | Address | [address] | | | [place] [address] | + + + | Home Phone [...] [place] | | | | | [address] | | + + + + + Care Team Providers + +------+ + | Care Rn Cardiovascular Name | Role | Phone | + +------+ + | Natalee Andersen NP | PCP | | + +------+ + Encounter Details +--------+ + + + + | Date | Type | Department | Care Team | Description | +--------+ + + + + | 06/25/ | Hospital | [facility] | Latricia Feliciano | | | 2014 | Encounter | MED CTR ACUTE | D, PT [address] | | | | | PHYSICAL THERAPY | NEFTALIE [place] | | | | | [address] | [address] | | | | | [place] [address] | | | | | | [phone] | | | +--------+ + + + [...] + + + +---------+ + + | [place]-3 Fatty | Take 1,000 mg by | [...] | | | | | [place] [address] | | | | | | [phone] | | | | | | | | +--------+---------+ + + + documented as of this encounter Visit Diagnoses Not on filedocumented in this encounter"
--- OUTSIDE RECORDS SUMMARY | ~2020-04-20 | XMS | Encounter Summary ---
Demographics + + + | Address | [address] | | | [place] [address] | + + + | Home Phone [...] [place] | | | | | [address] | | + + + + + Care Team Providers + +------+ + | Care Ware Tester Name | Role | Phone | [...] [address] | [address] [place], [place] | | | | | [place], [place] | [address] | | | | | [address] | | | | | | [phone] | | | +--------+ + + + [...] for review. The order was faxed to [facility] [address] today. She will let us know when [...] [place] | | | | | | [place] [address] | | | | | | [phone] | | | | | | | | +--------+---------+ + + + documented as of this encounter Visit Diagnoses Not on filedocumented in this encounter"
--- OUTSIDE RECORDS SUMMARY | ~2020-04-20 | XMS | Encounter Summary ---
Demographics + + + | Address | [address] | | | [place] [address] | + + + | Home Phone [...] [place] | | | | | [address] | | + + + + + Care Team Providers + +------+ + | Care Beauty Parlor Cleaner Name | Role | Phone | [...] + + | 08/24/ | Documentati | [facility] | Katharine Moncada, | Other (urgent | | 2019 | on | CARDIOLOGY [place] | Technologist | report) | | | | [address] | | | | | | [place] | | | | | | [address] | | | | | | [phone] | | | +--------+ + + + [...] | | | | | [place] [address] | | | | | | [phone] | | | | | | | | +--------+---------+ + + + documented as of this encounter Visit Diagnoses Not on filedocumented in this encounter"
--- OUTSIDE RECORDS SUMMARY | ~2020-04-20 | XMS | Encounter Summary ---
Demographics + + + | Address | [address] | | | [place] [address] | + + + | Home Phone [...] [place] | | | | | [address] | | + + + + + Care Team Providers + +------+ + | Care Reservations Agent Name | Role | Phone | [...] + | 05/02/ | Telephone | [facility] | Frandy Teresa, | Other | | 2013 | | NEUROSURGERY [address] | DO [address] | | | | | [address] | [address] [place], [place] | | | | | [place], [place] | [id number] | | | | | [address] | | | | | | [phone] | | | +--------+ + + + [...] C[place] | | | | | | [facility] [place] [address] | | | | | | [phone] | | | | | | | | +--------+---------+ + + + documented as of this encounter Visit Diagnoses Not on filedocumented in this encounter"
--- OUTSIDE RECORDS SUMMARY | ~2020-04-20 | XMS | Encounter Summary ---
Demographics + + + | Address | [address] | | | [place] [address] | + + + | Home Phone [...] [place] | | | | | [address] | | + + + + + Care Team Providers + +------+ + | Care Electro Mechanical Designer Name | Role | Phone | [...] | 08/05/ | Telephone | [facility] [place] | Frandy Teresa, | Other | | 2013 | | NEUROSURGERY [address] | DO [address] | | | | | [address] | [address] [place], [place] | | | | | [place], [place] | [id number] | | | | | [address] | | | | | | [phone] | | | +--------+ + + + [...] [place] | | | | | | [place] [address] | | | | | | [phone] | | | | | | | | +--------+---------+ + + + documented as of this encounter Visit Diagnoses Not on filedocumented in this encounter"
--- OUTSIDE RECORDS SUMMARY | ~2020-04-20 | XMS | Encounter Summary ---
Demographics + + + | Address | [address] | | | [place] [address] | + + + | Home Phone [...] [place] | | | | | [address] | | + + + + + Care Team Providers + +------+ + | Care Kindergarten Classroom Teacher Name | Role | Phone | [...] [place] | | | | | | [address] | | | | | | [phone] | | | +--------+ + + + [...] | | | | | [place] [address] | | | | | | [phone] | | | | | | | | +--------+---------+ + + + documented as of this encounter Visit Diagnoses Not on filedocumented in this encounter"
--- OUTSIDE RECORDS SUMMARY | ~2020-04-20 | XMS | Encounter Summary ---
Demographics + + + | Address | [address] | | | [place] [address] | + + + | Home Phone [...] [place] | | | | | [address] | | + + + + + Care Team Providers + +------+ + | Care Chlorinator Operator Name | Role | Phone | + +------+ + | Natalee Andersen NP | PCP | | + +------+ + Encounter Details +--------+ + + + + | Date | Type | Department | Care Team | Description | +--------+ + + + + | 09/27/ | Hospital | [facility] | Frandy Teresa, | Lumbar spondylosis; | | 2013 | Encounter | MED CTR XRAY [address] | DO [address] | S/P lumbar fusion | | | | [place] | [address] [place], [place] | | | | | [place] [address] | [address] | | | | | [phone] | | | +--------+ + + + [...] + + +---------+ + + | [place]-3 Fatty | Take 1,000 mg by | [...] | | | | | | [place] [address] | | | | | | [phone] | | | | | | | [...] + | MISCELLANEOUS LAB | | | [phone] | + +---------+ + + | MISCELANIOUS LAB | | | [phone] | + +---------+ + + documented in this encounter Visit Diagnoses + + | Diagnosis | + + | Lumbar spondylosis Lumbosacral spondylosis without myelopathy | + + | S/P lumbar fusion Arthrodesis status | + + documented in this encounter"
--- OUTSIDE RECORDS SUMMARY | ~2020-04-20 | XMS | Encounter Summary ---
Demographics + + + | Address | [address] | | | [place] [address] | + + + | Home Phone [...] [place], [place] | | | | | [address] | | + + + + + Care Team Providers + +------+ + | Care Medical Fee Clerk Name | Role | Phone | + +------+ + PCP | Unavailable | + +------+ + Encounter Details +--------+ + + + + | Date | Type | Department | Care Team | Description | +--------+ + + + + | 06/19/ | Hospital | [facility] | | | | 1991 - | Encounter | MED CTR GENERIC PSY | | | | | | CONV DEPT [address] | | | | 06/24/ | | [address] [place], | | | | 1991 | | [place] [address] | | | | | | [phone] | | | +--------+ + + + [...] | | | | | [place] [address] | | | | | | [phone] | | | | | | | | +--------+---------+ + + + documented as of this encounter Visit Diagnoses Not on filedocumented in this encounter"
--- OUTSIDE RECORDS SUMMARY | ~2020-04-20 | XMS | Encounter Summary ---
Demographics + + + | Address | [address] | | | [place] [address] | + + + | Home Phone [...] [place], [place] | | | | | [address] | | + + + + + [...] | 02/22/ | Hospital | [facility] | | | | 1996 | Encounter | MED CTR EMERGENCY | | | | | | [address] | | | | | | [place] | | | | | | [address] | | | | | | [phone] | | | +--------+ + + + [...] [place] | | | | | | [place] [address] | | | | | | [phone] | | | | | | | | +--------+---------+ + + + documented as of this encounter Visit Diagnoses Not on filedocumented in this encounter"
--- OUTSIDE RECORDS SUMMARY | ~2020-04-20 | XMS | Encounter Summary ---
Demographics + + + | Address | [address] | | | [place] [address] | + + + | Home Phone [...] [place] | | | | | [address] | | + + + + + Care Team Providers + +------+ + | Care Blocker And Polisher Name | Role | Phone | [...] + + | 08/28/ | Telephone | [facility] | Ashley Chávez | Other (Patient has | | 2018 | | CARDIOLOGY [place] bAad, Office Administration | questions about | | | | [address] | | monitor. ) | | | | [place] | | | | | | [address] | | | | | | [phone] | | | +--------+ + + + [...] Miscellaneous Notes Telephone Encounter - Ashley Chávez, Office Administration - 08/28/2019 8:32 AM Rory foster says [...] that if she chooses. Patient stated understanding. JPolloW:STERILE PROC TECH-AAMA. sandro umphilipp in this encounter Plan of Treatment +--------+---------+ + + + | Date | Type | Specialty | Care Team | Description | +--------+---------+ + + + | 04/24/ | Office | Cardiology | RoxannmarianDora juarez | | | 2019 | Visit | | [address] | | | | | | [address] | | | | | | [place] [address] | | | | | | [phone] | | | | | | | | +--------+---------+ + + + documented as of this encounter Visit Diagnoses Not on filedocumented in this encounter"
--- OUTSIDE RECORDS SUMMARY | ~2020-04-20 | XMS | Encounter Summary ---
Demographics + + + | Address | [address] | | | [place] [address] | + + + | Home Phone [...] [place] | | | | | [address] | | + + + + + Care Team Providers + +------+ + | Care Job Training Specialist Name | Role | Phone [...] updated | | | | | [address], | address | | | | | [address] [place] | | | | | | [place] [address] | | | | | | [phone] | | | +--------+ + + + [...] | | | | | [place] [address] | | | | | | [phone] | | | | | | | | +--------+---------+ + + + documented as of this encounter Visit Diagnoses Not on filedocumented in this encounter"
--- OUTSIDE RECORDS SUMMARY | ~2020-04-20 | XMS | Encounter Summary ---
Demographics + + + | Address | [address] | | | [place] [address] | + + + | Home Phone [...] [place], [place] | | | | | [address] | | + + + + + Care Team Providers + +------+ + | Care Furnace Operator Name | Role | Phone | + +------+ + PCP | Unavailable | + +------+ + Encounter Details +--------+ + + + + | Date | Type | Department | Care Team | Description | +--------+ + + + + | 02/22/ | Hospital | [facility] | | | | 1996 | Encounter | MED CTR EMERGENCY | | | | | | [address] [place] | | | | | | [place] | | | | | | [address] | | | | | | [phone] | | | +--------+ + + + [...] [place] | | | | | | [place] [address] | | | | | | [phone] | | | | | | | | +--------+---------+ + + + documented as of this encounter Visit Diagnoses Not on filedocumented in this encounter"
--- OUTSIDE RECORDS SUMMARY | ~2020-04-20 | XMS | Encounter Summary ---
Demographics + + + | Address | [address] | | | [place] [address] | + + + | Home Phone [...] Organization | [facility] | | | and [place] | + + + | Address | Unknown | + + + | Phone | Unavailable | + + + Support + + + + + | Name | Relationship | Address | Phone | + + + + + | Araceli Sibley | ECON | [place], [place] | | | | | [address] | | + + + + + Care Team Providers + +------+ + | Care Jewel Oliving Machine Operator Name | Role | Phone | + +------+ + PCP | Unavailable | + +------+ + Encounter Details +--------+ + + + + | Date | Type | Department | Care Team | Description | +--------+ + + + + | 02/16/ | Hospital | [facility] | | | | 1994 | Encounter | MED CTR LABORATORY | | | | | | [address] | | | | | | [place] | | | | | | [address] | | | | | | [phone] | | | +--------+ + + + [...] [place] | | | | | | [place] [address] | | | | | | [phone] | | | | | | | | +--------+---------+ + + + documented as of this encounter Visit Diagnoses Not on filedocumented in this encounter"
--- OUTSIDE RECORDS SUMMARY | ~2020-04-20 | XMS | Encounter Summary ---
Demographics + + + | Address | [address] | | | [place] [address] | + + + | Home Phone [...] [place] | | | | | [address] | | + + + + + Care Team Providers + +------+ + | Care Internal Communications Writer Name | Role | Phone | [...] + | 09/10/ | Documentati | [facility] | Katharine Moncada, | Other (urgent | | 2019 | on | CARDIOLOGY [place] | Technologist | report) | | | | [address] | | | | | | [place] | | | | | | [address] | | | | | | [phone] | | | +--------+ + + + [...] [place] | | | | | | [place] [address] | | | | | | [phone] | | | | | | | | +--------+---------+ + + + documented as of this encounter Visit Diagnoses Not on filedocumented in this encounter"
--- OUTSIDE RECORDS SUMMARY | ~2020-04-20 | XMS | Encounter Summary ---
Demographics + + + | Address | [address] | | | [place] [address] | + + + | Home Phone [...] [place] | | | | | [address] | | + + + + + Care Team Providers + +------+ + | Care Quotation Clerk Name | Role | Phone | [...] + + | 10/04/ | Office | [facility] | Desiree Peterson DO | ROGERS on CPAP (Primary | | 2019 | Visit | CARDIOLOGY [place] | [address] | Dx); Morbid obesity | | | | [address] | [place], [place] | (HCC); Benign | | | | [address] | [address] | essential HTN; | | | | [place], [place] | | Atrial fibrillation, | | | | [address] | | unspecified type | | | | [phone] | | ([facility]) | +--------+---------+ + + + Social [...] Desiree Peterson, - 10/04/2019 11:[address] [facility] [...] rtake in exercise. She recently got a MakeLeaps and has been walking him more regularly. [...] by mouth daily. Blood Glucose Monitoring Suppl (ProteoTechIO FLEX SYSTEM) w/Device KIT by Does not ap ply route. budesonide-formoterol (SYMBICORT) 160-4.5 MCG/ACT inhaler Inhale 2 puffs into the lungs 2 (two) times daily. Calcium Carbonate Antacid 1000 MG tablet Take 1,000 mg by mouth 3 (three) times daily. Cholecalciferol (VITAMIN D3) 23915 units CAPS Take by mouth once a [...] [place] | | | | | | [place] [address] | | | | | | [phone] | | | | | | | [...]
--- OUTSIDE RECORDS SUMMARY | ~2020-04-20 | XMS | Encounter Summary ---
Demographics + + + | Address | [address] | | | [place] [address] | + + + | Home Phone [...] [place] | | | | | [address] | | + + + + + Care Team Providers + +------+ + | Care Vehicle Body Builder Name | Role | Phone | [...] + | 03/06/ | Office | [facility] | Deon Gonzales | ROGERS (obstructive | | 2012 | Visit | SLEEP DISORDER [address] | MD [address] | sleep apnea) | | | | [address] [place] | [address] [place] | (Primary Dx); | | | | [place] [address] | [place] [address] | Sleepiness | | | | [phone] | [phone] | | | | | | | [...] differen t from the original. 03/06/13 [address] Sleepiness Scale Sitting and reading 3 Watching [...] by mouth Daily., Disp: , Rfl: ; [place]-3 Fatty Acids (FISH OIL CONCENTRATE) 1000 MG [...] th is encounter Miscellaneous Notes Miscellaneous - [facility] - 03/06/2013 12:00 AM PDT iscellaneous - [facility] - 03/06/2013 12:00 AM PDTEle [...] [place] | | | | | | [place] [address] | | | | | | [phone] | | | | | | | | +--------+---------+ + + + documented as of this encounter Visit Diagnoses + + | Diagnosis | + + | ROGERS (obstructive sleep apnea) - Primary Obstructive sleep apnea (adult) (pediatric) | + + | Sleepiness Other alteration of consciousness | + + documented in this encounter"
--- OUTSIDE RECORDS SUMMARY | ~2020-04-20 | XMS | Encounter Summary ---
Demographics + + + | Address | [address] | | | [place] [address] | + + + | Home Phone [...] [place] | | | | | [address] | | + + + + + Care Team Providers + +------+ + | Care Balance Screwhead Polisher Name | Role | Phone | [...] Closed | | Radiology | Diagnoses | Elias-Fela Solis, | | | | | | Thoracic or | Natalee L, | | | | | | lumbosacral | INDUSTRIAL TRACTOR DRIVER [address] | | | | | | neuritis or | [address] | | | | | | | [address] | | | | | | radiculitis, | [place], | | | | | | unspecified | [place] [address] | | | | | | | Phone: | | | | | | Degeneration | [phone] | | | | | | of lumbar | Fax: | | | | | | or | [phone] | | | | | | lumbosacral [...] + + | 03/11/ | Hospital | [facility] | Natalee Andersen | Thoracic or | | 2013 | Encounter | MED CTR MRI [address] | L, INDUSTRIAL TRACTOR DRIVER [address] | lumbosacral neuritis | | | | [place], | [address] | or radiculitis, | | | | [place] [address] | [place] [address] | unspecified; | | | | [phone] | [phone] | Degeneration of | | | | [...] + + + +---------+ + + | [place]-3 Fatty | Take 1,000 mg by | [...] - [facility] - 03/20/2014 12:00 AM PDT documented [...] [place] | | | | | | [place] [address] | | | | | | [phone] | | | | | | | [...] + | MISCELLANEOUS LAB | | | [phone] | + +---------+ + + | MISCELANIOUS LAB | | | [phone] | + +---------+ + + documented in this encounter Visit Diagnoses + + | Diagnosis | + + | Thoracic or lumbosacral neuritis or radiculitis, unspecified | + + | Degeneration of lumbar or lumbosacral intervertebral disc | + + documented in this encounter"
--- OUTSIDE RECORDS SUMMARY | ~2020-04-20 | XMS | Encounter Summary ---
Demographics + + + | Address | [address] | | | [place] [address] | + + + | Home Phone [...] [place] | | | | | [address] | | + + + + + [...] | 01/02/ | Telephone | [facility] | Frandy Teresa, | Other (6m x-ray ) | | 2015 | | NEUROSURGERY [address] | DO [address] | | | | | [address] | [address] [place], [place] | | | | | [place], [place] | [id number] | | | | | [address] | | | | | | [phone] | | | +--------+ + + + [...] for review. The order was faxed to [facility] today. She will let us know [...] [place] | | | | | | [place] [address] | | | | | | [phone] | | | | | | | | +--------+---------+ + + + documented as of this encounter Visit Diagnoses Not on filedocumented in this encounter"
--- OUTSIDE RECORDS SUMMARY | ~2020-04-20 | XMS | Encounter Summary ---
Demographics + + + | Address | [address] | | | [place] [address] | + + + | Home Phone [...] [place] | | | | | [address] | | + + + + + Care Team Providers + +------+ + | Care Attending Pathologist Name | Role | Phone | [...] + + | 08/14/ | Documentati | [facility] | Katharine Moncada, | Other (urgent | | 2019 | on | CARDIOLOGY [place] | Technologist | report) | | | | [address] | | | | | | [place] | | | | | | [address] | | | | | | [phone] | | | +--------+ + + + [...] | | | | | [place] [address] | | | | | | [phone] | | | | | | | | +--------+---------+ + + + documented as of this encounter Visit Diagnoses Not on filedocumented in this encounter"
--- OUTSIDE RECORDS SUMMARY | ~2020-04-20 | XMS | Encounter Summary ---
Demographics + + + | Address | [address] | | | [place] [address] | + + + | Home Phone [...] [place] | | | | | [address] | | + + + + + Care Team Providers + +------+ + | Care Experience Planning Strategist Name | Role | Phone | [...] | Telephone | [facility] | Frandy Teresa, | Other (surgery | | 2013 | | NEUROSURGERY [address] | DO [address] | reminder ) | | | | [address] | [address] [place], [place] | | | | | [place], [place] | [id number] | | | | | [address] | | | | | | [phone] | | | +--------+ + + + [...] SHAYNE ARAGON elephone Encounromero r - Shayne Aragno Cert MA - 06/20/2014 4:30 PM PDTLeft [...] | | | | | [place] [address] | | | | | | [phone] | | | | | | | | +--------+---------+ + + + documented as of this encounter Visit Diagnoses Not on filedocumented in this encounter"
--- OUTSIDE RECORDS SUMMARY | ~2020-04-20 | XMS | Encounter Summary ---
Demographics + + + | Address | [address] | | | [place] [address] | + + + | Home Phone [...] [place], [place] | | | | | [address] | | + + + + + Care Team Providers + +------+ + | Care Communications Supervisor Name | Role | Phone | + +------+ + PCP | Unavailable | + +------+ + Encounter Details +--------+ + + + + | Date | Type | Department | Care Team | Description | +--------+ + + + + | 07/17/ | Hospital | [facility] | | | | 1997 - | Encounter | MED CTR GENERIC PSY | | | | | | CONV DEPT [address] | | | | 07/25/ | | [place], | | | | 1997 | | [place] [address] | | | | | | [phone] | | | +--------+ + + + [...] | | | | | [place] [address] | | | | | | [phone] | | | | | | | | +--------+---------+ + + + documented as of this encounter Visit Diagnoses Not on filedocumented in this encounter"
--- OUTSIDE RECORDS SUMMARY | ~2020-04-20 | XMS | Encounter Summary ---
Demographics + + + | Address | [address] | | | [place] [address] | + + + | Home Phone [...] [place] | | | | | [address] | | + + + + + Care Team Providers + +------+ + | Care Road Inspector Name | Role | Phone | [...] | | | spondylolist | | [address] | | | | | hesis | | [place], | | | | | Spinal | | [place] [address] | | | | | stenosis, | | Phone: | | | | | lumbar | | [phone] | | | | | region, | | Fax: | | | | | without | | [phone] | | | | | neurogenic | [...] + + | 07/02/ | Hospital | [facility] | Frandy Teresa, | Spinal stenosis, | | 2013 | Encounter | MED CTR XRAY [address] | DO [address] | lumbar region, | | | | [place] | [address] [place], [place] | without neurogenic | | | | [place] [address] | [address] | claudication | | | | [phone] | | (Primary Dx) | +--------+ + [...] + + + +---------+ + + | [place]-3 Fatty | Take 1,000 mg by | [...] | | | | | [place] [address] | | | | | | [phone] | | | | | | | [...]
--- OUTSIDE RECORDS SUMMARY | ~2020-04-20 | XMS | Encounter Summary ---
Demographics + + + | Address | [address] | | | [place] [address] | + + + | Home Phone [...] [place] | | | | | [address] | | + + + + + Care Team Providers + +------+ + | Care Vp Transportation Name | Role | Phone | + [...] [place] | | | | | | [address] | | | | | | [phone] | | | +--------+ + + + [...] | | | | | [place] [address] | | | | | | [phone] | | | | | | | | +--------+---------+ + + + documented as of this encounter Visit Diagnoses Not on filedocumented in this encounter"
--- OUTSIDE RECORDS SUMMARY | ~2020-04-20 | XMS | Encounter Summary ---
Demographics + + + | Address | [address] | | | [place] [address] | + + + | Home Phone [...] [place] | | | | | [address] | | + + + + + Care Team Providers + +------+ + | Care Feather Drying Machine Operator Name | Role | Phone [...] + + | 10/25/ | Telephone | [facility] | Ashley Chávez | Other (Patient to | | 2019 | | CARDIOLOGY [place] Abad, Site Supervisor | stay on the same | | | | [address] | | dose. ) | | | | [place] | | | | | | [address] | | | | | | [phone] | | | +--------+ + + + [...] Miscellaneous Notes Telephone Encounter - Ashley Chávez Site Supervisor - 10/25/2019 8:44 AM PSTCall m [...] [email or web address]. el ephone Encounter - Ashley Chávez Site Supervisor - 10/25/2019 8:40 AM PST----- Mess age from Desiree Peterson DO sent at 10/24/2019 8:42 PM PST ----- Regarding: RE: Patient's Metoprolol. We can stay on the same dose of metoprolol for now. Thanks ----- Message ----- From: Ashley Chávez Site Supervisor Sent: 10/23/2019 10:52 AM PST To: [...] | | | | | [place] [address] | | | | | | [phone] | | | | | | | | +--------+---------+ + + + documented as of this encounter Visit Diagnoses Not on filedocumented in this encounter"
--- OUTSIDE RECORDS SUMMARY | ~2020-04-20 | XMS | Encounter Summary ---
Demographics + + + | Address | [address] | | | [place] [address] | + + + | Home Phone [...] [place] | | | | | [address] | | + + + + + Care Team Providers + +------+ + | Care Sports Team Manager Name | Role | Phone | [...] [place] | | | | | | [address] | | | | | | [phone] | | | +--------+ + + + [...] [place] | | | | | | [place] [address] | | | | | | [phone] | | | | | | | | +--------+---------+ + + + documented as of this encounter Visit Diagnoses Not on filedocumented in this encounter"
--- OUTSIDE RECORDS SUMMARY | ~2020-04-20 | XMS | Encounter Summary ---
Demographics + + + | Address | [address] | | | [place] [address] | + + + | Home Phone [...] [place] | | | | | [address] | | + + + + + Care Team Providers + +------+ + | Care Sr Risk Management Consultant Name | Role | Phone [...] | Transcriptions | + + | Interface, Network Operations Project Manager In - 11/04/2006 3:03 AM PST | | [address] | | [place], [place] [address] [facility] | | ClinicsOPERATION RECORDMed Rec [...] skin retractor was put in place. The [place] elevators wereused to separate the | | [...]
--- OUTSIDE RECORDS SUMMARY | ~2020-04-20 | XMS | Encounter Summary ---
Demographics + + + | Address | [address] | | | [place] [address] | + + + | Home Phone [...] [place] | | | | | [address] | | + + + + + Care Team Providers + +------+ + | Care Sorting Machine Attendant Name | Role | Phone [...] | | | | | [address] | [place], [place] | | | | | [place], [place] | [address] | | | | | [address] | | | | | | [phone] | | | +--------+ + + + [...] EVALUATION Cindy Arndt 58 y.o. female 1955 [id number] Scheduled procedure LAMINECTOMY PLIF/TLIF INSTRUMENTATION [1842] - L5-S1 TLIF Medical history, anesthesia, medications, allergy histories reviewed. ECG reviewed. Labs reviewed. ROS / Med History Ane (+) PONV. (-) difficult intubation, malignant hyperthermia . NPO status verified. CV (+) hypertension.(-) past AR. (+) Dysrhythmias (h/o PVCs) Exercise tolerance >4 [...] | | | | | [place] [address] | | | | | | [phone] | | | | | | | | +--------+---------+ + + + documented as of this encounter Visit Diagnoses Not on filedocumented in this encounter"
--- OUTSIDE RECORDS SUMMARY | ~2020-04-20 | XMS | Encounter Summary ---
Demographics + + + | Address | [address] [facility] [address] [address] | | | [place] [address] | + + + | Home Phone [...] [place] | | | | | [address] | | + + + + + Care Team Providers + +------+ + | Care Pelt Grader Name | Role | Phone | [...] | Transcriptions | + + | Interface, Landscape Painter In - 10/24/2006 3:09 AM PST | | [facility] | | Road [place], [place] [address] [place] | | [facility] LlcOPERATION RECORDMed Rec No.: [id number] Date: | | [...]
--- OUTSIDE RECORDS SUMMARY | ~2020-04-20 | XMS | Encounter Summary ---
Demographics + + + | Address | [address] | | | [place] [address] | + + + | Home Phone [...] [place] | | | | | [address] | | + + + + + Care Team Providers + +------+ + | Care Garment Looper Name | Role | Phone | + [...] | Frandy Simons DO | [address] | | | | | of skin | [address] | [place], | | | | | sensation | [address] | [place] | | | | | Arthrodesis | [place], [place] | [address] | | | | | status Left | [address] | Phone: | | | | | leg | Phone: | [phone] | | | | | weakness | [phone] | Fax: | | | | | Procedures | Fax: | [phone] | | | | | MRI Lumbar | [phone] | | | | | | Spine [...] [address] | [address] [place], [place] | | | | | [place], [place] | [address] | | | | | [address] | | | | | | [phone] | | | +--------+ + + + [...] scheduled samson for her MRI here at [facility] on 08/19. SHAYNE ARAGON eleFrandy Diaz [...] | | | | | | [place] [address] | | | | | | [phone] | | | | | | | [...] the round structure with high T1 and A3knjbjy in the right L3 vertebral | | [...] + | MISCELLANEOUS LAB | | | [phone] | + +---------+ + + | MISCELANIOUS LAB | | | [phone] | + +---------+ + + documented in [...]
--- OUTSIDE RECORDS SUMMARY | ~2020-04-20 | XMS | Encounter Summary ---
Demographics + + + | Address | [address] [facility] [address] | | | [place] [address] | + + + | Home Phone [...] [place] | | | | | [address] | | + + + + + Care Team Providers + +------+ + | Care Biological Engineer Name | Role | Phone | [...] | | | | | | [place] [address] | | | | | | [phone] | | | | | | | [...] in | | | | | | [facility] with a | | | | | [...] | | | | | | Laboratory, [place], | | | | | | [place], delivered | | | | | | [...] by | | | | | | rmszkeonZfa-Ani-S: | | | | | | Increased [...] istryMHC-1: | | | | | | [id number] stain | | | | | | [...] | + + + + + | [facility] | [address] | [place] [address] | | | PATHOLOGY | [place] | | | + + + + + documented in this encounter Visit Diagnoses Not on filedocumented in this encounter
--- OUTSIDE RECORDS SUMMARY | ~2020-04-20 | XMS | Encounter Summary ---
Demographics + + + | Address | [address] | | | [place] [address] | + + + | Home Phone [...] [place] | | | | | [address] | | + + + + + Care Team Providers + +------+ + | Care Financial Sales Advisor Name | Role | Phone [...] + + | 02/26/ | Emergency | [facility] | [place], | CVA (cerebral | | 2015 | | MED CTR EMERGENCY | Davey Simons MD [address] | vascular accident) | | | | CENTER [address] | [address] [facility] | ([facility]) (Primary Dx) | | | | [place], [place] | [place] [address] | | | | | [address] | [phone] | | | | | [phone] | | | +--------+ + + + [...] + + + +---------+ + + | Honobia-3 Fatty | Take 1,000 mg by | [...] might be differe nt from the original. [facility] Emergency Department Encounter Note [address] [place] [address] PCP:Natalee Andersen [phone] CHIEF COMPLAINT: Chief Complaint Patient presents with Facial Droop ED Room: ED07/ED07 HPI Cindy Arndt is a 59 y.o. female who presents to the Emergency Department accompanied by a friend from [place] for evaluation. The patient recently had symptoms that were diagno sed as stroke or TIA. The symptoms were of a weakness and numbness in her right arm and leg . She was hospitalized for 4 days in [place] for this. She was discharged and subsequent ly has had 2 or 3 emergency department visits in [place] for symptoms diagnosed as TIAs. These have been recurrent and worsening right arm and leg weakness and then today with some right facial drooping and drooling. She is on Aggrenox. She had a full workup in [place] including brain CT, brain MRI, and [...] Surgeon: Frandy castellanos DO; Location: [facility] MAIN OR CURRENT MEDICATIONS Discharge [...] or Severe Contraindications. Consult references such as ClearTax for furthe r information. Magnesium 250 MG [...] or Severe Contraindications. Consult references such as [employer]Tax for further information. Multiple Vitamins-Minerals (CENTRUM SILVER PO) Take 1 tablet by mouth Daily.Historical Med OLANZapine zydis (ZYPREXA ZYDIS) 15 MG disintegrating tablet Take 15 mg by mouth nightly. Honobia-3 Fatty Acids (FISH OIL CONCENTRATE) 1000 MG [...] review all of her imaging studies from [facility] ED COURSE & MEDICAL DECISION MAKING Pertinent Labs & Imaging studies were reviewed along with EMS notes and group home record s if applicable. (See chart for details) Medications and Allergy list reviewed. Nurses note and old records were reviewed The patient was seen and examined, I was finally able to get her records from [facility] which showed a normal MRI and [...] Specialty: Emergency Medicine Contact information: [address] [facility] [address] Follow up with [facility]. Specialty: Emergency Medicine Contact information: [address] [facility] [address] Follow up with Natalee Andersen NP. Specialty: Family Nurse Practitioner Contact information: [address] [place] [address] Schedule an appointment as soon as possible for a visit with Baudilio Newman MD. Specialty: Neurology Contact information: [address] [facility] [id number] Discharge Medication List as of 02/26/2015 15:21 Davey Varela MD 02/26/15 1732 do cumented in this encounter Miscellaneous Notes ED Triage Notes - Yesenia Monroy RN - 02/26/2015 1:11 PM PDTC/O right sided facial mahendra op and numbness to right arm and leg onset yesterday at approximately 1800. Pt was seen in [facility] by her primary care physician this [...] | | | | | [place] [address] | | | | | | [phone] | | | | | | | [...] | | MEDICAL | | | | mL/min/1.52r2Weqw than | | CENTER - | | [...] + | [facility] | [address] | [place] | [phone] | | [facility] | | [address] | | | - LABORATORY | | [...] [address] | [place] | [phone] | | [facility] | | [address] | | | - LABORATORY | | [...] | | Emergency -numbness/facial droop 02/26/2015 08:15 [facility] | | | [facility] 02/19/2015 | | | 10:15 [facility] | | | -Diabetes [...] as uncontrolled 02/17/2015 | | | 08:22 [facility] Emergency | | | -Long-term (current) [...] and uterus 02/14/2015 | | | 09:56 [facility] Emergency | | | -Disturbance of [...] postprocedural status 02/06/2015 10:46 | | | [facility] | | [...] residual deficits | | | 02/01/2015 21:38 [facility] | | | Emergency 01/22/2015 14:00 [facility] | | | Urgent Care -Myalgia [...] intervertebral disc | | | 01/16/2015 12:15 [facility] | | | Urgent Care -Unspecified [...] other | | | medications 01/07/2015 11:45 [facility] | | | Urgent Care -Unspecified [...] hypothyroidism 12/30/2014 | | | 17:54 [facility] | | [...] essential hypertension | | | 12/30/2014 14:30 [facility] | | | Urgent Care -Cramp [...] | -Cramp of limb 11/29/2014 16:15 [facility] | | | [...] ------ | | | --------- [address] | | | [facility] [address] | | | [facility] 7 0 Total | | | Note: Visits indicate total known visits. Medicaid [place] Dx are the | | | number of primary diagnoses on the [facility]'s non-emergent dx list. | | | [...]
--- OUTSIDE RECORDS SUMMARY | ~2020-04-20 | XMS | Encounter Summary ---
Demographics + + + | Address | [address] | | | [place] [address] | + + + | Home Phone [...] [place] | | | | | [address] | | + + + + + Care Team Providers + +------+ + | Care Administrative Services Manager Name | Role | Phone [...] | Radiology | [facility] | [facility] | | | | | atrial | [address] | [address] | | | | | fibrillation | [address] | [place] | | | | | History of | [address] | [place], [place] | | | | | stroke | [place], [place] | [address] | | | | | Sinus | [address] | Phone: | | | | | tachycardia | Phone: | [phone] | | | | | by | [phone] | Fax: | | | | | electrocardi | Fax: | [phone] | | | | | ogram New | [phone] | | | | | | onset [...] + + | 01/09/ | Office | [facility] | Roxannmiguel ángelDora | History of atrial | | 2020 | Visit | CARDIOLOGY [place] | [address] | fibrillation | | | | [address] | [address] | (Primary Dx); Benign | | | | [address] | [place] [address] | essential HTN; | | | | [place], [place] | [phone] | History of | | | | [address] | | hypothyroidism; | | | | [phone] | | Stress | | | | [...] an urgent Echo to be done at [facility] to follow up on new left bundle [...] of fatigue and shortness of breath. Her NVI3DX1 VASC score is 4 (stroke, HTN, gender) [...] go back to volunteering at the local [employer], though this plan will need to be on hold with current epidemic restrictions . She reports after she lost 160 pounds with a gastric sleeve that she was retested for sle ep apnea 2 years ago, and told the results negative, but has not had CPAP for 3 years She has previously seen Dr. Garland in [place], and different sleep provider in [facility] when lived over there. She [...] thirst or hunger. Psychiatric/Behavioral: Bipolar/Schizophrenia. Tx'd by [employer] Vaccines: Current on flu vaccine: 2019 Current on pneumonia vaccine:PPSV 23 05/29/2013 Habits/Social : Denies history of smoking. Denies EtOH use. Denies recreational or illici t drug use. Exercises sporadically. Lives in [place] . Outpatient Medications Prior to Visit Medication [...] by mouth nightly. Blood Glucose Monitoring Suppl (quickhuddle VERIO FLEX SYSTEM) w/Device KIT by Does [...] nonspecific ST-T wave abnormality rate 82 bpm, IA 176 ms, QRS 80 ms, QTC 446 ms tracing personally reviewed by me EK12/17/2019: Sinus tachycardia, nonspecific ST wave abnormalities, rate 105 bpm, IA 196 ms, QRS 74 ms, QTC 430 ms, tracing personally reviewed by me, and compared to EKG performed in February 2019, rate is less well-controlled EK01/10/2020 (metoprolol XL 50 mg twice daily. Normal sinus rhythm, new left bundle bran ch block Rate 74 bpm, IA 204 ms, QRS 138 ms, QTC 488 ms, tracing personally reviewed by me and Dr. Peterson. compared to EKG performed in November, new left bundle branch block, lead III has lower voltage QRS also in aVL and aVF, and improved voltage to anterior leads and rate i s better controlled. LABS Labs: 12/26/2018: ( [facility])CMP: Sodium 139, potassium 4.2, chloride 99, BUN 10, creatinine 0. 7, BNP 28. CBC: WBC 7.8, hemoglobin 14.3, hematocrit 42.7, platelets 214 Labs: 09/28/2019:( [facility]) CBC: WBC 7.8, hemoglobin 14.9, hematocrit 43.8, platelets 221. C MP: Sodium 132, potassium 4.2, chloride 95, AST 76, ALT 76, alk phos 134 Labs: 10/11/2019:( [facility]) CBC: WBC 6.7, RBC 4.97, hemoglobin 15.2, hematocrit 44.7, platel ets 200. CMP: Glucose 385, BUN 7, creatinine 0.62, GFR 97, sodium 131, potassium 4.1, chlor kelby 95, albumin 4.3, total bilirubin 0.6, AST 75, ALT 73, alk phos 144. Thyroid: TSH 4.27 Labs: 10/12/2020:( [facility]) CBC: WBC 7, RBC 4.93, [...] and reviewed her EKG results with her sound mixer, Dr. Peterson, who is in the cli [place] today, and the plan is to get an updated echo to evaluate her for any new wall motion ab normalities. If she has any wall motion abnormalities, she will need to have further evalua tion for ischemic heart disease in [place] such as a stress test or angiogram I reviewed her EKG with her, and discussed this plan with her. The Echo will be ordered on an urgent basis, is currently a restriction on all nonurgent testing at [facility] . She was agreeable to [...] continuity of care purp ose [place] [facility] Cardiology 01/10/2020 docume nted in [...] CANTU | | | | | | [place] [address] | | | | | | [phone] | | | | | | | [...] | | | | | | Yesenia ([id number]) on | | | | | | [...]
--- OUTSIDE RECORDS SUMMARY | ~2020-04-20 | XMS | Encounter Summary ---
Demographics + + + | Address | [address] | | | [place] [address] | + + + | Home Phone [...] [place] | | | | | [address] | | + + + + + [...] | | | [address], | [place] [address] | | | | | [place] [address] | [phone] | | | | | [phone] | | | +--------+--------+ + + + [...] | | | | | [place] [address] | | | | | | [phone] | | | | | | | | +--------+---------+ + + + documented as of this encounter Visit Diagnoses + + | Diagnosis | + + | Essential hypertension - Primary Unspecified essential hypertension | + + documented in this encounter"
--- OUTSIDE RECORDS SUMMARY | ~2020-04-20 | XMS | Encounter Summary ---
Demographics + + + | Address | [address] | | | [place] [address] | + + + | Home Phone [...] [place] | | | | | [address] | | + + + + + Care Team Providers + +------+ + | Care Pouncing Machine Operator Name | Role | Phone [...] | 03/26/ | Telephone | [facility] | Thierry Fry | Medication Prior | | 2014 | | MEDICINE [address] [place] [address] | MD Lisa [address] | Authorization | | | | [place], | [address] | (Dexilant 60Mg) | | | | [place] [address] | [address] | | | | | [phone] | | | +--------+ + + + [...] were not received I contacted insurance ID# [id number] This has been denied. The patient must try and fail 2 of the following Omeprazole Protonix Prevacid Nexium Please advise elepho ne Encounter - Saba Acosta Cert MA - 03/26/2015 1:32 PM PDTCalled and requested a prior authorization Requested for via fax from [employer] Prior auth medication Dexilant 60MgElectronically signed by [...] CANTU | | | | | | [place] [address] | | | | | | [phone] | | | | | | | | +--------+---------+ + + + documented as of this encounter Visit Diagnoses Not on filedocumented in this encounter"
--- OUTSIDE RECORDS SUMMARY | ~2020-04-20 | XMS | Encounter Summary ---
Demographics + + + | Address | [address] | | | [place] [address] | + + + | Home Phone [...] [place], [place] | | | | | [address] | | + + + + + Care Team Providers + +------+ + | Care Commercial Relief Driver Name | Role | Phone | + +------+ + PCP | Unavailable | + +------+ + Encounter Details +--------+ + + + + | Date | Type | Department | Care Team | Description | +--------+ + + + + | 12/09/ | Hospital | [facility] | Serafin Bautista | | | 2011 | Encounter | MED CTR XRAY [address] | [address], [address] | | | | | [place] | [place] | | | | | [place] [address] | [address] | | | | | [phone] | | | +--------+ + + + [...] CANTU | | | | | | [place] [address] | | | | | | [phone] | | | | | | | [...] Performed At | + + + | [facility] Diagnostic Imaging Department | [facility] | | [address] [facility] | [facility] | | PROCEDURE NOTE EPIDURAL | [...] Juan, Rad Conversion - 11/30/2013 4:45 PM [place] [...]
--- OUTSIDE RECORDS SUMMARY | ~2020-04-20 | XMS | Encounter Summary ---
Demographics + + + | Address | [address] | | | [place] [address] | + + + | Home Phone [...] [place] | | | | | [address] | | + + + + + Care Team Providers + +------+ + | Care Blender/Braze Applicator Name | Role | Phone | [...] + + | 03/26/ | Telephone | [facility] | Thierry Fry | Medication Prior | | 2014 | | MEDICINE [address] [place] [address] | MD Lisa [address] | Authorization | | | | [place], | [place] | (Dexilant 60Mg) | | | | [place] [address] | [address] | | | | | [phone] | | | +--------+ + + + [...] were not received I contacted insurance ID# [id number] This has been denied. The patient must try and fail 2 of the following Omeprazole Protonix Prevacid Nexium Please advise elepho ne Encounter - Saba Acosta Cert MA - 03/26/2015 1:32 PM PDTCalled and requested a prior authorization Requested for via fax from [employer] Prior auth medication Dexilant 60MgElectronically signed by [...] CANTU | | | | | | [place] [address] | | | | | | [phone] | | | | | | | | +--------+---------+ + + + documented as of this encounter Visit Diagnoses Not on filedocumented in this encounter"
--- OUTSIDE RECORDS SUMMARY | ~2020-04-20 | XMS | Encounter Summary ---
Demographics + + + | Address | [address] | | | [place] [address] | + + + | Home Phone [...] [place] | | | | | [address] | | + + + + + Care Team Providers + +------+ + | Care Home Coordinator Name | Role | Phone | [...] [place] | | | | | | [address] | | | | | | [phone] | | | +--------+ + + + [...] | | | | | [place] [address] | | | | | | [phone] | | | | | | | | +--------+---------+ + + + documented as of this encounter Visit Diagnoses Not on filedocumented in this encounter"
--- OUTSIDE RECORDS SUMMARY | ~2020-04-20 | XMS | Encounter Summary ---
Demographics + + + | Address | [address] | | | [place] [address] | + + + | Home Phone [...] [place] | | | | | [address] | | + + + + + Care Team Providers + +------+ + | Care Leach Cell Operator Name | Role | Phone | [...] | 2019 | | CARDIOLOGY [place] Abad, Film Process Operator | mariela ) | | | | [address] | | | | | | [facility] [place] | | | | | | [address] | | | | | | [phone] | | | +--------+ + + + [...] Miscellaneous Notes Telephone Encounter - Ashley Chávez Film Process Operator - 07/30/2019 1:40 PM Shila norton to patient to advise of Dr. Peterson's notes. Patient stated understanding. BRODY:MANGO. el ephone Encounter - Ashley Chávez, Film Process Operator - 07/30/2019 1:40 PM PDT----- Mess age [...] Thanks ----- Message ----- From: Ashley Chávez Film Process Operator Sent: 07/30/2019 11:47 To: Desiree Peterson DO [...] | | | | | [place] [address] | | | | | | [phone] | | | | | | | | +--------+---------+ + + + documented as of this encounter Visit Diagnoses Not on filedocumented in this encounter"
--- OUTSIDE RECORDS SUMMARY | ~2020-04-20 | XMS | Encounter Summary ---
Demographics + + + | Address | [address] | | | [place] [address] | + + + | Home Phone [...] [place] | | | | | [address] | | + + + + + Care Team Providers + +------+ + | Care Granite Fabricator Name | Role | Phone | [...] + + | 06/27/ | Office | [facility] | Yecenia Richardson, | Hypertension, | | 2019 | Visit | CARDIOLOGY [place] | MD Nitin RODRIGUES | unspecified type | | | | [address] | [place], [place] | (Primary Dx); | | | | [facility] [facility] | [address] | Bradycardia | | | | [place] | | | | | | [address] | | | | | | [phone] | | | +--------+---------+ + + + [...] urgent basis. Had an appointment today in [facility]. She has been feeling dizzy as [...] Take by mouth. Blood Glucose Monitoring Suppl ([employer] VERIO FLEX SYSTEM) w/Device KIT by Does [...] mg by mouth Daily. Cholecalciferol (VITAMIN D-3) 22393 units CAPS Take 50,000 Units by mouth [...] tablet Take 10 mg by mouth nightly. Thompson-3 Fatty Acids (FISH OIL CONCENTRATE) 1000 MG [...] CANTU | | | | | | [place] [address] | | | | | | [phone] | | | | | | | [...]
--- OUTSIDE RECORDS SUMMARY | ~2020-04-20 | XMS | Encounter Summary ---
Demographics + + + | Address | [address] | | | [place] [address] | + + + | Home Phone [...] [place], [place] | | | | | [address] | | + + + + + Care Team Providers + +------+ + | Care Baler Operator Name | Role | Phone | + +------+ + PCP | Unavailable | + +------+ + Encounter Details +--------+ + + + + | Date | Type | Department | Care Team | Description | +--------+ + + + + | 10/29/ | Hospital | [facility] | | | | 1994 | Encounter | MED CTR LABORATORY | | | | | | [address] | | | | | | [place] | | | | | | [address] | | | | | | [phone] | | | +--------+ + + + [...] CANTU | | | | | | [place] [address] | | | | | | [phone] | | | | | | | | +--------+---------+ + + + documented as of this encounter Visit Diagnoses Not on filedocumented in this encounter"
--- OUTSIDE RECORDS SUMMARY | ~2020-04-20 | XMS | Encounter Summary ---
Demographics + + + | Address | [address] | | | [place] [address] | + + + | Home Phone [...] [place], [place] | | | | | [address] | | + + + + + Care Team Providers + +------+ + | Care Framing Manager Name | Role | Phone | + +------+ + PCP | Unavailable | + +------+ + Encounter Details +--------+ + + + + | Date | Type | Department | Care Team | Description | +--------+ + + + + | 01/16/ | Hospital | [facility] | | | | 2002 | Encounter | MED CTR XRAY [address] | | | | | [address] | | | | | | [place] [address] | | | | | | [phone] | | | +--------+ + + + [...] | | | | | [place] [address] | | | | | | [phone] | | | | | | | | +--------+---------+ + + + documented as of this encounter Visit Diagnoses Not on filedocumented in this encounter"
--- OUTSIDE RECORDS SUMMARY | ~2020-04-20 | XMS | Encounter Summary ---
Demographics + + + | Address | [address] | | | [place] [address] | + + + | Home Phone [...] [place] | | | | | [address] | | + + + + + Care Team Providers + +------+ + | Care Macaroni Maker Name | Role | Phone | + +------+ + | Natalee Andersen NP | PCP | | + +------+ + Encounter Details +--------+ + + + + | Date | Type | Department | Care Team | Description | +--------+ + + + + | 06/25/ | Hospital | [facility] | Frandy Teresa, | Acquired | | 2014 | Encounter | MED CTR XRAY [address] | DO [address] | spondylolisthesis | | | | [place] | [address] [place], [place] | | | | | [place] [address] | [address] | | | | | [phone] | | | +--------+ + + + [...] + + + +---------+ + + | Hindman-3 Fatty | Take 1,000 mg by | [...] CANTU | | | | | | [place] [address] | | | | | | [phone] | | | | | | | | +--------+---------+ + + + documented as of this encounter Visit Diagnoses + + | Diagnosis | + + | Acquired spondylolisthesis | + + documented in this encounter"
--- OUTSIDE RECORDS SUMMARY | ~2020-04-20 | XMS | Encounter Summary ---
Demographics + + + | Address | [address] | | | [place] [address] | + + + | Home Phone [...] [place] | | | | | [address] | | + + + + + Care Team Providers + +------+ + | Care Bicycle Racer Name | Role | Phone | [...] | Frandy Simons DO | [address] | | | | | of skin | [address] | [place], | | | | | sensation | [address] | [place] | | | | | Arthrodesis | [place], [place] | [address] | | | | | status Left | [address] | Phone: | | | | | leg | Phone: | [phone] | | | | | weakness | [phone] | Fax: | | | | | Procedures | Fax: | [phone] | | | | | MRI Lumbar | [phone] | | | | | | Spine [...] [address] | [address] [place], [place] | | | | | [place], [place] | [id number] | | | | | [address] | | | | | | [phone] | | | +--------+ + + + [...] scheduled samson for her MRI here at [facility] on 08/19. SHAYNE ARAGON eleFrandy Diaz DO [...] CANTU | | | | | | [place] [address] | | | | | | [phone] | | | | | | | [...] the round structure with high T1 and D8htsfok in the right L3 vertebral | | [...] + | MISCELLANEOUS LAB | | | [phone] | + +---------+ + + | MISCELANIOUS LAB | | | [phone] | + +---------+ + + documented in [...]
--- OUTSIDE RECORDS SUMMARY | ~2020-04-20 | XMS | Encounter Summary ---
Demographics + + + | Address | [address] | | | [place] [address] | + + + | Home Phone [...] [place] | | | | | [address] | | + + + + + Care Team Providers + +------+ + | Care Radio Mechanic Helper Name | Role | Phone | + +------+ + | Adriano Patrick MD | PCP | | + +------+ + Encounter Details +--------+ + + + + | Date | Type | Department | Care Team | Description | +--------+ + + + + | 06/10/ | Abstract | [facility] | Thierry Fry | | | 2014 | | MEDICINE [facility] | MD Lisa [address] | | | | | [address] [place], | [place], [place] | | | | | [place] [address] | [address] | | | | | [phone] | | | +--------+ + + + [...] ACNTU | | | | | | [place] [address] | | | | | | [phone] | | | | | | | [...]
--- OUTSIDE RECORDS SUMMARY | ~2020-04-20 | XMS | Encounter Summary ---
Demographics + + + | Address | [address] | | | [place] [address] | + + + | Home Phone [...] [place] | | | | | [address] | | + + + + + Care Team Providers + +------+ + | Care Resolution Rep Name | Role | Phone | [...] + + | 11/25/ | Telephone | [facility] | Frandy Teresa, | Medication Refill | | 2014 | | NEUROSURGERY [address] | DO [address] | Assistance | | | | POPLAR [facility] | [address] [place], [place] | | | | | [place], [place] | [id number] | | | | | [address] | | | | | | [phone] | | | +--------+ + + + [...] get a refill of her pain medication Hamilton 10-325 mg. I l et her know we are beyond the 90 days after her surgery and refills need to come from her [facility] provider. She requests us to update her [...] [address] | | | | | | [place] [address] | | | | | | [phone] | | | | | | | | +--------+---------+ + + + documented as of this encounter Visit Diagnoses Not on filedocumented in this encounter"
--- OUTSIDE RECORDS SUMMARY | ~2020-04-20 | XMS | Encounter Summary ---
Demographics + + + | Address | [address] | | | [place] [address] | + + + | Home Phone [...] [place], [place] | | | | | [address] | | + + + + + Care Team Providers + +------+ + | Care Wash Box Operator Name | Role | Phone | + +------+ + PCP | Unavailable | + +------+ + Encounter Details +--------+ + + + + | Date | Type | Department | Care Team | Description | +--------+ + + + + | 02/28/ | Hospital | [facility] | Deon Gonzales | | | 2012 | Encounter | MED CTR SLEEP | MD [address] | | | | | [place] [address] | [place] [facility] | | | | | [place], [place] | [place] [address] | | | | | [address] | [phone] | | | | | [phone] | | | +--------+ + + + [...] - 02/29/2012 2:36 PM PDTDATE: 02/29/2012 cc: [facility] Sleep Center Deon Gonzales Jr., MD, [facility] POSITIVE PRESSURE TITRATION STUDY CLINICAL INFORMATION: [...] the patient scored 18 points on the [place] Sleepiness Scale, which endorses a severe degree [...] advised. Deon Gonzales Jr., MD, FAASM Diplomate [place] Board of Internal Medicine Diplomate in Sleep Medicine [employer], Delicia [facility] Clinical Pipe Bender Katelin joy [facility], [facility] JOB #: [id number] EXT JOB #:[id number] EDITED: 03/03/2012 07:26 <Electronically Signed by Deon [...] [address]ANTU | | | | | | [place] [address] | | | | | | [phone] | | | | | | | | +--------+---------+ + + + documented as of this encounter Visit Diagnoses Not on filedocumented in this encounter"
--- OUTSIDE RECORDS SUMMARY | ~2020-04-20 | XMS | Encounter Summary ---
Demographics + + + | Address | [address] | | | [place] [address] | + + + | Home Phone [...] + + + | Author | [facility] | + + + | Organization | [facility] | + + + | Address | Unknown | + + + | Phone | Unavailable | + + + Support + + + + + | Name | Relationship | Address | Phone | + + + + + | Kelsy Bautista | E[address] | [address] | | | | | [place] | | | | | [address] | | + + + + + Care Team Providers + +------+ + | Care Choir Singer Name | Role | Phone | [...] [id number] | | | | | | [place], [place] | | | | | | [address] | | | | | | [phone] | | | +--------+ + + + [...] [facility] | [address] | [place] [address] | | | PATHOLOGY | [address] [...] Re | | | | | | [phone] | | | | + + + + + + + + | Specimen | + + | | + + + + + + + | Performing | Address | City/State/Zipcode | Phone Number | | Organization | | | | + + + + + | [facility] | [address] | [place] [address] | | | PATHOLOGY | [address] [...] Re | | | | | | 716945 | | | | + + + + + + + + | Specimen | + + | | + + + + + + + | Performing | Address | City/State/Zipcode | Phone Number | | Organization | | | | + + + + + | [facility] | [address] | [place] [address] | | | PATHOLOGY | [address] [...] Re | | | | | | 0627[address] | | | | + + + + + + + + | Specimen | + + | | + + + + + + + | Performing | Address | City/State/Zipcode | Phone Number | | Organization | | | | + + + + + | [facility] | [address] | [place] [address] | | | PATHOLOGY | [address] [...] Re | | | | | | [address] | | | | + + + + + + + + | Specimen | + + | | + + + + + + + | Performing | Address | City/State/Zipcode | Phone Number | | Organization | | | | + + + + + | [facility] | [address] | [place] [address] | | | PATHOLOGY | [address] | | | + + + + + documented in this encounter Visit Diagnoses Not on filedocumented in this encounter"
--- OUTSIDE RECORDS SUMMARY | ~2020-04-20 | XMS | Encounter Summary ---
Demographics + + + | Address | [address] | | | [place] [address] | + + + | Home Phone [...] [place] | | | | | [address] | | + + + + + Care Team Providers + +------+ + | Care Winter Sports Manager Name | Role | Phone | [...] | | | | | | | [address] | | | | | | | Phone: | | | | | | | [phone] | | | | | | | Fax: | | | | | | | [phone] | | +--------+--------+ + + + + Encounter Details +--------+---------+ + + + | Date | Type | Department | Care Team | Description | +--------+---------+ + + + | 02/27/ | Office | [facility] | Baudilio Newman | Neuropathy (Primary | | 2015 | Visit | NEUROLOGY LAURIE | MD Pollo Need updated | Dx); Sleep apnea; | | | | [address], | address | Stroke (HCC); | | | | [address] [place] | | Thyroid disease | | | | [place] [address] | | | | | | [phone] | | | +--------+---------+ + + + [...] supply of blood, brain tissue quickly dies. 9745-2607 [employer]. [address] [place] [address]. All righ ts reserved. This information is not intended as a substitute for professional medical care. Always follow your healthcare professional's instructions. documented in this encounter Progress Notes Baudilio Newman MD - 02/27/2015 10:31 AM PDTFormatting of this note might be differen t from the original. Baudilio Newman MD [address] [place] [address], [address] [place] [address] Neurology Outpatient New Patient Note Referring Provider: [...] history. Notes from her recent hospitalization at [facility] were reviewed in detail. Ms. Ar[place] started feeling off in the evening of 02/01. She felt dizzy and laid down to slee p. Upon waking, she felt her right side was numb. She tried to get up to go to the bathroom and realized she was weak as well on the right. She was taken to [facility] where she was diagnosed with a [...] systol ically. She was reevaluated in the [facility] ED for one such event and [...] hospitalization . This specimen was characterized at [facility], but the report is not currently available for [facility]. Unfortunately, Ms. Arndt notes that [...] Laterality: N/A; Surgeon: Frandy castellanos DO; Location: [facility] MAIN OR Current Medications: Outpatient [...] tablet Take 15 mg by mouth nightly. [place]-3 Fatty Acids (FISH OIL CONCENTRATE) 1000 MG [...] BMI 46.04 kg /m2 Neck Circumference: 14" [place] Sleepiness Scale: 2 General: well developed and [...] Romberg test negative Radiographic Review: CTA from [facility] reviewed on i[facility]ITE. No significant stenoses seen [...] No results found for this basename: hba1c, tys2kei, ldl, ldldirect, ldlext, dldlex Lab Results Component [...] | | | | | | [place] [address] | | | | | | [phone] | | | | | | | [...]
--- OUTSIDE RECORDS SUMMARY | ~2020-04-20 | XMS | Encounter Summary ---
Demographics + + + | Address | [address] | | | [place] [address] | + + + | Home Phone [...] [place] | | | | | [address] | | + + + + + Care Team Providers + +------+ + | Care Material Hauler Name | Role | Phone | + +------+ + | Natalee Andersen NP | PCP | | + +------+ + Encounter Details +--------+ + + + + | Date | Type | Department | Care Team | Description | +--------+ + + + + | 07/25/ | Hospital | [facility] | Frandy Teresa, | Status post lumbar | | 2014 | Encounter | MED CTR XRAY [address] | DO [address] | spinal fusion | | | | [place] | [address] [place], [place] | | | | | [place] [address] | [address] | | | | | [phone] | | | +--------+ + + + [...] + + + +---------+ + + | [place]-3 Fatty | Take 1,000 mg by | [...] [address] | | | | | | [place] [address] | | | | | | [phone] | | | | | | | [...] + | MISCELLANEOUS LAB | | | [phone] | + +---------+ + + | MISCELANIOUS LAB | | | [phone] | + +---------+ + + documented in this encounter Visit Diagnoses + + | Diagnosis | + + | Status post lumbar spinal fusion Arthrodesis status | + + documented in this encounter"
--- OUTSIDE RECORDS SUMMARY | ~2020-04-20 | XMS | Encounter Summary ---
Demographics + + + | Address | [address] | | | [place] [address] | + + + | Home Phone [...] [place] | | | | | [address] | | + + + + + Care Team Providers + +------+ + | Care Fisher Gill Net Name | Role | Phone | [...] [place] | | | | | | [address] | | | | | | [phone] | | | +--------+ + + + [...] [address] | | | | | | [place] [address] | | | | | | [phone] | | | | | | | | +--------+---------+ + + + documented as of this encounter Visit Diagnoses Not on filedocumented in this encounter"
--- OUTSIDE RECORDS SUMMARY | ~2020-04-20 | XMS | Encounter Summary ---
Demographics + + + | Address | [address] | | | [place] [address] | + + + | Home Phone [...] [place] | | | | | [address] | | + + + + + Care Team Providers + +------+ + | Care Roster Clerk Name | Role | Phone | + +------+ + | Thierry Fry MD | PCP | | + +------+ + Encounter Details +--------+ + + + + | Date | Type | Department | Care Team | Description | +--------+ + + + + | 03/06/ | Hospital | [facility] | Katharine Cardona PA-C | Essential | | 2015 | Encounter | MED CTR LABORATORY | [address] | hypertension | | | | [address] [place] | [place] [address] | | | | | [place], [place] | [phone] | | | | | [address] | | | | | | [phone] | | | +--------+ + + + [...] 0 | | | | (VITAMIN D-3) 46[address] | mouth Once a week. | | [...] + + +---------+ + + | [place]-3 Fatty | Take 1,000 mg by | 60 each | 5 | 03/09/20 | | | Acids (FISH OIL | mouth 2 times daily. | | | 15 | 9 | | CONCENTRATE) 1000 MG | | | | | | | CAPS | | | | | | + + + +---------+ + + | [place]-3 Fatty | Take 1,000 mg by [...] | | | | | [place] [address] | | | | | | [phone] | | | | | | | [...] mL/min/1.73m2 | [facility] | | | [facility]AL [place]ICAN | RATE,ESTIMATED | | MEDICAL | | | | mL/min/1.02x0Qfbz than | | CENTER - | | [...] [address] | [place] | [phone] | | [facility] | | [address] | | | - LABORATORY | | | | + + + + + documented in this encounter Visit Diagnoses + + | Diagnosis | + + | Essential hypertension Unspecified essential hypertension | + + documented in this encounter"
--- OUTSIDE RECORDS SUMMARY | ~2020-04-20 | XMS | Encounter Summary ---
Demographics + + + | Address | [address] | | | [place] [address] | + + + | Home Phone [...] [place], [place] | | | | | [address] | | + + + + + Care Team Providers + +------+ + | Care Auto Transmission Mechanic Name | Role | Phone | + +------+ + PCP | Unavailable | + +------+ + Encounter Details +--------+ + + + + | Date | Type | Department | Care Team | Description | +--------+ + + + + | 02/22/ | Hospital | [facility] | | | | 1996 - | Encounter | MED CTR GENERIC PSY | | | | | | CONV DEPT [address] | | | | 02/26/ | | [place], | | | | 1996 | | [place] [address] | | | | | | [phone] | | | +--------+ + + + [...] | | | | | [place] [address] | | | | | | [phone] | | | | | | | | +--------+---------+ + + + documented as of this encounter Visit Diagnoses Not on filedocumented in this encounter"
--- OUTSIDE RECORDS SUMMARY | ~2020-04-20 | XMS | Encounter Summary ---
Demographics + + + | Address | [address] | | | [place] [address] | + + + | Home Phone [...] [place] | | | | | [address] | | + + + + + Care Team Providers + +------+ + | Care Senior Production Supervisor Name | Role | Phone | [...] + + | 08/16/ | Documentati | [facility] | Katharine Moncada, | Other (urgent | | 2019 | on | CARDIOLOGY [place] | Technologist | report) | | | | [address] | | | | | | [place] | | | | | | [address] | | | | | | [phone] | | | +--------+ + + + [...] | | | | | [place] [address] | | | | | | [phone] | | | | | | | | +--------+---------+ + + + documented as of this encounter Visit Diagnoses Not on filedocumented in this encounter"
--- OUTSIDE RECORDS SUMMARY | ~2020-04-20 | XMS | Encounter Summary ---
Demographics + + + | Address | [address] | | | [place] [address] | + + + | Home Phone [...] [place], [place] | | | | | [address] | | + + + + + Care Team Providers + +------+ + | Care Tile Inspector Name | Role | Phone | + +------+ + PCP | Unavailable | + +------+ + Encounter Details +--------+ + + + + | Date | Type | Department | Care Team | Description | +--------+ + + + + | 03/13/ | Hospital | [facility] | | | | 1996 - | Encounter | MED CTR GENERIC OP | | | | | | CONV DEPT [address] | | | | 03/21/ | | [place], | | | | 1996 | | [place] [address] | | | | | | [phone] | | | +--------+ + + + [...] | | | | | [place] [address] | | | | | | [phone] | | | | | | | | +--------+---------+ + + + documented as of this encounter Visit Diagnoses Not on filedocumented in this encounter"
--- OUTSIDE RECORDS SUMMARY | ~2020-04-20 | XMS | Encounter Summary ---
Demographics + + + | Address | [address] | | | [place] [address] | + + + | Home Phone [...] [place] | | | | | [address] | | + + + + + Care Team Providers + +------+ + | Care House Designer Name | Role | Phone | [...] [address] | | | | | [address] [place], [place] | [place] [address] | | | | | [address] | | | | | | [phone] | | | +--------+ + + + [...] [address] | | | | | | [place] [address] | | | | | | [phone] | | | | | | | | +--------+---------+ + + + documented as of this encounter Visit Diagnoses Not on filedocumented in this encounter"
--- OUTSIDE RECORDS SUMMARY | ~2020-04-20 | XMS | Encounter Summary ---
Demographics + + + | Address | [address] | | | [place] [address] | + + + | Home Phone [...] [place], [place] | | | | | [address] | | + + + + + Care Team Providers + +------+ + | Care Bilingual Social Worker Name | Role | Phone [...] | | | | 1996 | | [place] [address] | | | | | | [phone] | | | +--------+ + + + [...] | | | | | [place] [address] | | | | | | [phone] | | | | | | | | +--------+---------+ + + + documented as of this encounter Visit Diagnoses Not on filedocumented in this encounter"
--- OUTSIDE RECORDS SUMMARY | ~2020-04-20 | XMS | Encounter Summary ---
Demographics + + + | Address | [address] | | | [place] [address] | + + + | Home Phone [...] [place] | | | | | [address] | | + + + + + Care Team Providers + +------+ + | Care Engine Research Engineer Name | Role | Phone [...] + + | 07/06/ | Emergency | [facility] | Yunior Sherman, | Chest pain, | | 2014 | | MED CTR EMERGENCY | MD [address] | unspecified chest | | | | CENTER [address] | [place], [place] | pain type (Primary | | | | [place], [place] | [address] | Dx) | | | | [address] | | | | | | [phone] | | | +--------+ + + + [...] 0 | | | | (VITAMIN D-3) [address] | mouth Once a week. | | [...] | | | | | ([facility]) | | | | | | [...] + + + +---------+ + + | [place]-3 Fatty | Take 1,000 mg by | [...] N/A; Surgeon: Frandy castellanos DO; Location: [facility] MAIN OR Cardiac catherization CURRENT [...] mg by mouth Daily. CHOLECALCIFEROL (VITAMIN D-3) 12525 UNITS CAPS Take 50,000 Units by mouth [...] pain. She was recently discharged from a [facility] facility. She's had more than [...] | | | | | | [place] [address] | | | | | | [phone] | | | | | | | [...] [address] | [place] | [phone] | | [facility] | | [address] | | | - LABORATORY | | [...] [address] | [place] | [phone] | | [facility] | | [address] | | | - LABORATORY | | [...] [address] | [place] | [phone] | | [facility] | | [address] | | | - LABORATORY | | [...] mL/min/1.73m2 | [facility] | | | [place] | RATE,ESTIMATED | | MEDICAL | | | | mL/min/1.90t4Gaci than | | CENTER - | | [...] + | [address] | [address] | [place] | [phone] | | [facility] | | [address] | | | - LABORATORY | | [...] [address] | [place] | [phone] | | [facility] | | [address] | | | - LABORATORY | | [...] | | | | MD MANSI, LACEY ([id number]) | | | | | | on [...]
--- OUTSIDE RECORDS SUMMARY | ~2020-04-20 | XMS | Encounter Summary ---
Demographics + + + | Address | [address] | | | [place] [address] | + + + | Home Phone [...] [place] | | | | | [address] | | + + + + + Care Team Providers + +------+ + | Care Vehicle Maintenance Technician Name | Role | Phone [...] [place] | | | | | | [address] | | | | | | [phone] | | | +--------+ + + + [...] | | | | | | [place] [address] | | | | | | [phone] | | | | | | | | +--------+---------+ + + + documented as of this encounter Visit Diagnoses Not on filedocumented in this encounter"
--- OUTSIDE RECORDS SUMMARY | ~2020-04-20 | XMS | Encounter Summary ---
Demographics + + + | Address | [address] | | | [place] [address] | + + + | Home Phone [...] [place], [place] | | | | | [address] | | + + + + + Care Team Providers + +------+ + | Care Supervisor Sheet Manufacturing Name | Role | Phone | + +------+ + PCP | Unavailable | + +------+ + Encounter Details +--------+ + + + + | Date | Type | Department | Care Team | Description | +--------+ + + + + | 06/19/ | Hospital | [facility] | | | | 1991 - | Encounter | MED CTR GENERIC PSY | | | | | | CONV DEPT [address] | | | | 06/24/ | | [place], | | | | 1991 | | [place] [address] | | | | | | [phone] | | | +--------+ + + + [...] | | | | | [place] [address] | | | | | | [phone] | | | | | | | | +--------+---------+ + + + documented as of this encounter Visit Diagnoses Not on filedocumented in this encounter"
--- OUTSIDE RECORDS SUMMARY | ~2020-04-20 | XMS | Encounter Summary ---
Demographics + + + | Address | [address] | | | [place] [address] | + + + | Home Phone [...] [place] | | | | | [address] | | + + + + + Care Team Providers + +------+ + | Care Incinerator Plant General Supervisor Name | Role | Phone | [...] [place] | | | | | | [address] | | | | | | [phone] | | | +--------+ + + + [...] | | | | | [place] [address] | | | | | | [phone] | | | | | | | | +--------+---------+ + + + documented as of this encounter Visit Diagnoses Not on filedocumented in this encounter"
--- OUTSIDE RECORDS SUMMARY | ~2020-04-20 | XMS | Encounter Summary ---
Demographics + + + | Address | [address] | | | [place] [address] | + + + | Home Phone [...] [place] | | | | | [address] | | + + + + + Care Team Providers + +------+ + | Care Technical Expert Name | Role | Phone | [...] [address] | [address] [place], [place] | (Primary Dx) | | | | [place], [place] | [address] | | | | | [address] | | | | | | [phone] | | | +--------+ + + + [...] [address] | | | | | | [place] [address] | | | | | | [phone] | | | | | | | [...] + | MISCELLANEOUS LAB | | | [phone] | + +---------+ + + | MISCELANIOUS LAB | | | [phone] | + +---------+ + + documented in this encounter Visit Diagnoses + + | Diagnosis | + + | Status post lumbar spinal fusion - Primary Arthrodesis status | + + documented in this encounter"
--- OUTSIDE RECORDS SUMMARY | ~2020-04-20 | XMS | Encounter Summary ---
Demographics + + + | Address | [address] | | | [place] [address] | + + + | Home Phone [...] [place] | | | | | [address] | | + + + + + Care Team Providers + +------+ + | Care Lead Radiation Therapist Name | Role | Phone | [...] + + | 10/04/ | Office | [facility] | Desiree Peterson DO | ROGERS on CPAP (Primary | | 2019 | Visit | CARDIOLOGY [place] | [address] | Dx); Morbid obesity | | | | [address] | [place], [place] | (HCC); Benign | | | | [address] | [address] | essential HTN; | | | | [place], [place] | | Atrial fibrillation, | | | | [address] | | unspecified type | | | | [phone] | | ([facility]) | +--------+---------+ + + + Social History [...] Desiree Peterson, - 10/04/2019 11:40 AM PST [facility] Cardiology Cardiology Follow Up Note [...] rtake in exercise. She recently got a [employer]ige and has been walking him more regularly. [...] by mouth daily. Blood Glucose Monitoring Suppl (Glo BagsIO FLEX SYSTEM) w/Device KIT by Does not ap ply route. budesonide-formoterol (SYMBICORT) 160-4.5 MCG/ACT inhaler Inhale 2 puffs into the lungs 2 (two) times daily. Calcium Carbonate Antacid 1000 MG tablet Take 1,000 mg by mouth 3 (three) times daily. Cholecalciferol (VITAMIN D3) 76599 units CAPS Take by mouth once a [...] [address] | | | | | | [place] [address] | | | | | | [phone] | | | | | | | [...]
--- OUTSIDE RECORDS SUMMARY | ~2020-04-20 | XMS | Encounter Summary ---
Demographics + + + | Address | [address] | | | [place] [address] | + + + | Home Phone [...] [place], [place] | | | | | [address] | | + + + + + Care Team Providers + +------+ + | Care Mix House Tender Name | Role | Phone | + +------+ + PCP | Unavailable | + +------+ + Encounter Details +--------+ + + + + | Date | Type | Department | Care Team | Description | +--------+ + + + + | 09/10/ | Hospital | [facility] | | | | 1992 | Encounter | MED CTR LABORATORY | | | | | | [address] | | | | | | [place] | | | | | | [address] | | | | | | [phone] | | | +--------+ + + + [...] [address] | | | | | | [place] [address] | | | | | | [phone] | | | | | | | | +--------+---------+ + + + documented as of this encounter Visit Diagnoses Not on filedocumented in this encounter"
--- OUTSIDE RECORDS SUMMARY | ~2020-04-20 | XMS | Encounter Summary ---
Demographics + + + | Address | [address] | | | [place] [address] | + + + | Home Phone [...] [place] | | | | | [address] | | + + + + + Care Team Providers + +------+ + | Care Commodity Industry Analyst Name | Role | Phone | [...] Transcriptions | + + | Interface, Neon Glass Bender In - 10/24/2006 3:09 AM PST | | [facility] | | Road [place], [place] [address] [place] | | [facility] HospitalOPERATION RECORDMed Rec No.: [id number] Date: | [...]
--- OUTSIDE RECORDS SUMMARY | ~2020-04-20 | XMS | Encounter Summary ---
Demographics + + + | Address | [address] | | | [place] [address] | + + + | Home Phone [...] [place] | | | | | [address] | | + + + + + Care Team Providers + +------+ + | Care Precision Grinder Name | Role | Phone | [...] [place] | | | | | | [address] | | | | | | [phone] | | | +--------+ + + + [...] [place] | | | | | | [place] [address] | | | | | | [phone] | | | | | | | | +--------+---------+ + + + documented as of this encounter Visit Diagnoses Not on filedocumented in this encounter"
--- OUTSIDE RECORDS SUMMARY | ~2020-04-20 | XMS | Encounter Summary ---
Demographics + + + | Address | [address] | | | [place] [address] | + + + | Home Phone [...] [place], [place] | | | | | [address] | | + + + + + Care Team Providers + +------+ + | Care Systems Architect Name | Role | Phone | + +------+ + PCP | Unavailable | + +------+ + Encounter Details +--------+ + + + + | Date | Type | Department | Care Team | Description | +--------+ + + + + | 08/21/ | Hospital | [facility] | | | | 1996 | Encounter | MED CTR LABORATORY | | | | | | [address] | | | | | | [place] | | | | | | [address] | | | | | | [phone] | | | +--------+ + + + [...] | | | | | | [place] [address] | | | | | | [phone] | | | | | | | | +--------+---------+ + + + documented as of this encounter Visit Diagnoses Not on filedocumented in this encounter"
--- OUTSIDE RECORDS SUMMARY | ~2020-04-20 | XMS | Encounter Summary ---
Demographics + + + | Address | [address] | | | [place] [address] | + + + | Home Phone [...] [place], [place] | | | | | [address] | | + + + + + Care Team Providers + +------+ + | Care Continuous Crusher Operator Name | Role | Phone | + +------+ + PCP | Unavailable | + +------+ + Encounter Details +--------+ + + + + | Date | Type | Department | Care Team | Description | +--------+ + + + + | 01/16/ | Hospital | [facility] | | | | 2002 | Encounter | MED CTR XRAY [address] | | | | | | [address] | | | | | | [place] [address] | | | | | | [phone] | | | +--------+ + + + [...] | | | | | [place] [address] | | | | | | [phone] | | | | | | | | +--------+---------+ + + + documented as of this encounter Visit Diagnoses Not on filedocumented in this encounter"
--- OUTSIDE RECORDS SUMMARY | ~2020-04-20 | XMS | Encounter Summary ---
Demographics + + + | Address | [address] | | | [place] [address] | + + + | Home Phone [...] [place] | | | | | [address] | | + + + + + [...] [place] | | | | | | [address] | | | | | | [phone] | | | +--------+ + + + [...] [place] | | | | | | [place] [address] | | | | | | [phone] | | | | | | | | +--------+---------+ + + + documented as of this encounter Visit Diagnoses Not on filedocumented in this encounter"
--- OUTSIDE RECORDS SUMMARY | ~2020-04-20 | XMS | Encounter Summary ---
Demographics + + + | Address | [address] | | | [place] [address] | + + + | Home Phone [...] [place], [place] | | | | | [address] | | + + + + + [...] | 04/01/ | Hospital | [facility] | | | | 1998 | Encounter | MED CTR XRAY [address] | | | | | | [address] | | | | | | [place] [address] | | | | | | [phone] | | | +--------+ + + + [...] | | | | | [place] [address] | | | | | | [phone] | | | | | | | | +--------+---------+ + + + documented as of this encounter Visit Diagnoses Not on filedocumented in this encounter"
--- OUTSIDE RECORDS SUMMARY | ~2020-04-20 | XMS | Encounter Summary ---
Demographics + + + | Address | [address] | | | [place] [address] | + + + | Home Phone [...] [place], [place] | | | | | [address] | | + + + + + Care Team Providers + +------+ + | Care Horticultural Farm Manager Name | Role | Phone | + +------+ + PCP | Unavailable | + +------+ + Encounter Details +--------+ + + + + | Date | Type | Department | Care Team | Description | +--------+ + + + + | 12/06/ | Hospital | [facility] | | | | 1994 | Encounter | MED CTR LABORATORY | | | | | | [address] | | | | | | [place] | | | | | | [address] | | | | | | [phone] | | | +--------+ + + + [...] [place] | | | | | | [place] [address] | | | | | | [phone] | | | | | | | | +--------+---------+ + + + documented as of this encounter Visit Diagnoses Not on filedocumented in this encounter"
--- OUTSIDE RECORDS SUMMARY | ~2020-04-20 | XMS | Encounter Summary ---
Demographics + + + | Address | [address] | | | [place] [address] | + + + | Home Phone [...] [place], [place] | | | | | [address] | | + + + + + Care Team Providers + +------+ + | Care Engineering Designer Name | Role | Phone | + +------+ + PCP | Unavailable | + +------+ + Encounter Details +--------+ + + + + | Date | Type | Department | Care Team | Description | +--------+ + + + + | 02/24/ | Hospital | [facility] | | | | 1997 | Encounter | MED CTR EMERGENCY | | | | | | [address] | | | | | | [place] | | | | | | [address] | | | | | | [phone] | | | +--------+ + + + [...] [place] | | | | | | [place] [address] | | | | | | [phone] | | | | | | | | +--------+---------+ + + + documented as of this encounter Visit Diagnoses Not on filedocumented in this encounter"
--- OUTSIDE RECORDS SUMMARY | ~2020-04-20 | XMS | Encounter Summary ---
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
--- OUTSIDE RECORDS SUMMARY | ~2020-04-20 | XMS | Encounter Summary ---
Demographics + + + | Address | [address] | | | [place] [address] | + + + | Home Phone [...] [place] | | | | | [address] | | + + + + + Care Team Providers + +------+ + | Care Installer Name | Role | Phone | [...] + + | 09/10/ | Documentati | [facility] | Katharine Moncada, | Other (urgent | | 2019 | on | CARDIOLOGY [place] | Technologist | report) | | | | [address] | | | | | | [place] | | | | | | [address] | | | | | | [phone] | | | +--------+ + + + [...] [place] | | | | | | [place] [address] | | | | | | [phone] | | | | | | | | +--------+---------+ + + + documented as of this encounter Visit Diagnoses Not on filedocumented in this encounter"
--- OUTSIDE RECORDS SUMMARY | ~2020-04-20 | XMS | Encounter Summary ---
Demographics + + + | Address | [address] | | | [place] [address] | + + + | Home Phone [...] [place] | | | | | [address] | | + + + + + Care Team Providers + +------+ + | Care Chemical Process Engineer Name | Role | Phone [...] [address] | | | | | [place], [place] | Shaheen Simons | | | | | [address] | [place] [address] | | | | | [phone] | [phone] | | | | | | | [...] [place] | | | | | | [place] [address] | | | | | | [phone] | | | | | | | [...] GIVEN Testing | | | performed at [facility];[address];[place] [address] CULTURE | | | 50,000 TO 100,000 CFU/ML | | | MIXED GRAM POSITIVE HAIDER NO SUSCEPTIBILITY TO FOLLOW | | | MULTIPLE ORGANISM TYPES PRESENT, | | | SUGGESTIVE OF CONTAMINATION OR COLONIZATION. SUGGEST RECOLLECTION FOR | | | CULTURE. Testing | | | performed at [facility];[address];[place] [address] REPORT | | | STATUS 06/08/2012 FINAL [...]
--- OUTSIDE RECORDS SUMMARY | ~2020-04-20 | XMS | Clinical Summary ---
Demographics + + + | Address | [address] | | | [place] [address] | + + + | Home Phone [...] [place] | | | | | [address] | | + + + + + Care Team Providers + +------+ + | Care Business Administration Instructor Name | Role | Phone | + +------+ + PCP | Unavailable | + +------+ + Source Comments EDWARD is fully live on both [facility] Ambulatory and [facility] InPatient.[facility] Allergies Not on File Medications [...] | [facility] | xxxxxxxxxx | 02/22/20 | [phone] | [address] | [facility] | | | RE A & | | 15-Pre | 1 | [address] | re | | | B | | sent | | [place] | | | | | | | | [address] | | + +--------+ +--------+ + +--------+ [...] Self | [birth year] | | [address] | | | al/Fam | | 1955 | [phone] | [address] [place] | | | [place]onte | | | 5 (Home) | [address] | + +--------+ +--------+ + +"
--- OUTSIDE RECORDS SUMMARY | ~2020-04-20 | XMS | Encounter Summary ---
Demographics + + + | Address | [address] | | | [place] [address] | + + + | Home Phone [...] [place] | | | | | [address] | | + + + + + Care Team Providers + +------+ + | Care Barge Loader Name | Role | Phone | [...] + + | 06/27/ | Office | [facility] | Yecenia Richardson, | Hypertension, | | 2019 | Visit | CARDIOLOGY [place] | MD Nitin RODRIGUES | unspecified type | | | | [address] | [place], [place] | (Primary Dx); | | | | KEV SCHAFER [facility] | [address] | Bradycardia | | | | [place] | | | | | | [address] | | | | | | [phone] | | | +--------+---------+ + + + [...] Take by mouth. Blood Glucose Monitoring Suppl ([employer] VERIO FLEX SYSTEM) w/Device KIT by Does [...] mg by mouth Daily. Cholecalciferol (VITAMIN D-3) 08380 units CAPS Take 50,000 Units by mouth [...] tablet Take 10 mg by mouth nightly. Craig-3 Fatty Acids (FISH OIL CONCENTRATE) 1000 MG [...] [place] | | | | | | [place] [address] | | | | | | [phone] | | | | | | | [...]
--- OUTSIDE RECORDS SUMMARY | ~2020-04-20 | XMS | Encounter Summary ---
Demographics + + + | Address | [address] | | | [place] [address] | + + + | Home Phone [...] [place] | | | | | [address] | | + + + + + Care Team Providers + +------+ + | Care Air Plant Engineer Name | Role | Phone | [...] + + | 02/05/ | Telephone | [facility] | Ashley Chávez | Other (Patient | | 2020 | | CARDIOLOGY [place] Abad, Commission Auditor | ) | | | | [address] | | | | | | [place] | | | | | | [address] | | | | | | [phone] | | | +--------+ + + + [...] t week . elephone Enco Ashley Wong, Commission Auditor - 02/06/2020 2:53 PM PDTPatient states that [...] advise. Thank you! (sent to Dora Mendez) JPolloW:SPECIAL NEEDS TEACHER-AAMA. doc umented in this encounter Plan of Treatment +--------+---------+ + + + | Date | Type | Specialty | Care Team | Description | +--------+---------+ + + + | 04/24/ | Office | Cardiology | Dora De La Torre | | 2019 | Visit | | CAROLIEN Mendez [address] | | | | | | [address] | | | | | | [place] [address] | | | | | | [phone] | | | | | | | | +--------+---------+ + + + documented as of this encounter Visit Diagnoses Not on filedocumented in this encounter
--- OUTSIDE RECORDS SUMMARY | ~2020-04-20 | XMS | Encounter Summary ---
Demographics + + + | Address | [address] | | | [place] [address] | + + + | Home Phone [...] [place] | | | | | [address] | | + + + + + Care Team Providers + +------+ + | Care Coordinator Of Evaluation Name | Role | Phone | + [...] + + | 08/14/ | Telephone | [facility] | Ashley Chávez | Other (Patient was | | 2018 | | CARDIOLOGY [place] Abad, Operational Risk Manager | anxious about urgent | | | | [address] | | reports. ) | | | | [place] | | | | | | [address] | | | | | | [phone] | | | +--------+ + + + [...] Miscellaneous Notes Telephone Encounter - Ashley Chávez, Operational Risk Manager - 08/14/2019 9:16 AM Seferino foster [...] for the time being. Patient stated understanding. JDW:MEDICAL RECORD TECHNICIAN-AAMA. [facility] umented in this encounter Plan [...] [address] | | | | | | [place] [address] | | | | | | [phone] | | | | | | | | +--------+---------+ + + + documented as of this encounter Visit Diagnoses Not on filedocumented in this encounter"
--- OUTSIDE RECORDS SUMMARY | ~2020-04-20 | XMS | Encounter Summary ---
Demographics + + + | Address | [address] | | | [place] [address] | + + + | Home Phone [...] | Araceli Sibley | ECON | [place] | | | | | [address] | | + + + + + [...] + + | 07/19/ | Office | [facility] | Desiree Peterson DO | Syncope, unspecified | | 2019 | Visit | CARDIOLOGY [place] | [address] | syncope type | | | | [address] | [place], [place] | (Primary Dx); | | | | [address] [place] | [address] | Essential | | | | [place] | | hypertension; | | | | [address] | | Irregular heartbeat | | | | [phone] | | | +--------+---------+ + + + [...] Peterson DO - 07/19/2019 10:40 AM PDT [facility] Cardiology Cardiology Follow Up Note Reason [...] rtake in exercise. She recently got a Snaptalent and has been walking him more regularly. [...] by mouth daily. Blood Glucose Monitoring Suppl ([employer] VERIO FLEX SYSTEM) w/Device KIT by Does not ap ply route. budesonide-formoterol (SYMBICORT) 160-4.5 MCG/ACT inhaler Inhale 2 puffs into the lungs 2 (two) times daily. Calcium Carbonate Antacid 1000 MG tablet Take 1,000 mg by mouth 3 (three) times daily. Cholecalciferol (VITAMIN D3) 14043 units CAPS Take by mouth once a [...] | | | | | [place] [address] | | | | | | [phone] | | | | | | | [...]
--- OUTSIDE RECORDS SUMMARY | ~2020-04-20 | XMS | Encounter Summary ---
Demographics + + + | Address | [address] | | | [place] [address] | + + + | Home Phone [...] [place] | | | | | [address] | | + + + + + Care Team Providers + +------+ + | Care Measurement Coordinator Name | Role | Phone | + +------+ + | Natalee Andersen NP | PCP | | + +------+ + Encounter Details +--------+ + + + + | Date | Type | Department | Care Team | Description | +--------+ + + + + | 06/25/ | Hospital | [facility] | Frandy Teresa, | Acquired | | 2014 | Encounter | MED CTR XRAY [address] | DO [address] | spondylolisthesis | | | | [place] | [address] [place], [place] | | | | | [place] [address] | [address] | | | | | [phone] | | | +--------+ + + + [...] + + + +---------+ + + | Cyclone-3 Fatty | Take 1,000 mg by | [...] [place] | | | | | | [place] [address] | | | | | | [phone] | | | | | | | | +--------+---------+ + + + documented as of this encounter Visit Diagnoses + + | Diagnosis | + + | Acquired spondylolisthesis | + + documented in this encounter"
--- OUTSIDE RECORDS SUMMARY | ~2020-04-20 | XMS | Encounter Summary ---
Demographics + + + | Address | [address] | | | [place] [address] | + + + | Home Phone [...] [place], [place] | | | | | [address] | | + + + + + Care Team Providers + +------+ + | Care Rope Maker Name | Role | Phone | + +------+ + PCP | Unavailable | + +------+ + Encounter Details +--------+ + + + + | Date | Type | Department | Care Team | Description | +--------+ + + + + | 12/27/ | Hospital | [facility] | | | | 1997 - | Encounter | MED CTR GENERIC PSY | | | | | | CONV DEPT [address] | | | | 01/01/ | | [place], | | | | 1997 | | [place] [address] | | | | | | [phone] | | | +--------+ + + + [...] | | | | | [place] [address] | | | | | | [phone] | | | | | | | | +--------+---------+ + + + documented as of this encounter Visit Diagnoses Not on filedocumented in this encounter"
--- OUTSIDE RECORDS SUMMARY | ~2020-04-20 | XMS | Encounter Summary ---
Demographics + + + | Address | [address] | | | [place] [address] | + + + | Home Phone [...] [place] | | | | | [address] | | + + + + + Care Team Providers + +------+ + | Care Technology Teacher Name | Role | Phone [...] + + | 08/22/ | Documentati | [facility] | Katharine Moncada, | Other (urgent | | 2019 | on | CARDIOLOGY [place] | Technologist | report) | | | | [address] | | | | | | [place] | | | | | | [address] | | | | | | [phone] | | | +--------+ + + + [...] | | | | | [place] [address] | | | | | | [phone] | | | | | | | | +--------+---------+ + + + documented as of this encounter Visit Diagnoses Not on filedocumented in this encounter"
--- OUTSIDE RECORDS SUMMARY | 2020-04-20 17:28 | XMS ---
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 No recent Security Events currently on file CRITERIA MET - [facility] - Has Care Guidelines - PDMP - [facility] - 2 Visits in 30 Days CARE PROVIDERS WAYNE CAMARGO Internal Medicine 09/07/2019-Current PHONE: [phone] Kenny Palafox DO [facility] Current PHONE: [phone] Jose Ag Family Medicine 01/31/2019-Current PHONE: [phone] Guidelines Source: [facility] Radha Negrete Guidelines Date: 03/13/2019 Care Coordination: Mental health services are being provided by [facility].\T\nbsp; Please contact [facility] with mental health concerns.\T\nbsp; Zuleima/Philippe Woods: \T\nbsp; Moshe: [phone]. Care History Medical/Surgical 10/23/2019 [facility] - CHW CONTACTED JONATHAN AT [facility]- PATIENT DOES NOT MEET THE ACT TEAM REQUIREMENTS FOR SERVICES DUE TO DX. - CHW SUGGESTED TO HAVE GUARDIANSHIP REVIEWED FOR PATIENT DUE TO ONGOING MENTAL HEALTH CONCERNS AND ED VISITS. - JONATHAN STATED SHE WOULD LOOK INTO THIS WITH PATIENT CURRENT CASE MANAGEMENT TEAM. - JONATHAN CAN BE CONTACTED AT [phone]. 10/15/2019 [facility] Patient still scheduled for 10/25/[address] Camargo.\T\nbsp; Phone restrictions.\T\nbsp; Not able to reach patient by phone. 10/01/2019 [facility] Patient\T\#39;s 09/28/[address] Camargo was rescheduled for 2019. E.D. VISIT COUNT (12 MO.) 21 [facility]. TOTAL 21 NOTE: Visits indicate total known visits. 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 - Abrasion, left knee, initial encounter - Type 2 diabetes mellitus without complications - Essential (primary) hypertension 10/23/2019 08:03 [facility] [place] TYPE: Emergency COMPLAINT: - MEDICAL CLEARANCE DIAGNOSES: - Type 2 diabetes mellitus without complications - Old myocardial infarction - Allergy status to sulfonamides status - Allergy status to other drugs, medicaments and biological sub - Essential (primary) hypertension - Gastro-esophageal reflux disease without esophagitis - 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 - Delusional disorders 10/22/2019 16:37 [facility] [place] TYPE: Emergency COMPLAINT: - MEDICAL CLEARANCE DIAGNOSES: - Type 2 diabetes mellitus without complications - Gastro-esophageal reflux disease without esophagitis - Old myocardial infarction - Other [facility] (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 - Essential (primary) hypertension - Allergy status to sulfonamides status - Allergy status to other drugs, medicaments and biological sub - Encounter for other general examination 10/20/2019 20:02 [facility] [place] TYPE: Emergency COMPLAINT: - MEDICAL CLEARANCE DIAGNOSES: - Gastro-esophageal reflux disease without esophagitis - Type 2 diabetes mellitus without complications - Encounter for other general examination - 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 - Old myocardial infarction [...] ischemic attack (TIA), and cere - 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 - Old myocardial infarction - Essential (primary) hypertension - Type 2 diabetes mellitus with hyperglycemia 10/11/2019 10:06 [facility] [place] TYPE: Emergency COMPLAINT: - MEDICAL CLEARANCE DIAGNOSES: - Essential (primary) hypertension - Delusional disorders - Old myocardial infarction - Delusional disorders - Allergy status to sulfonamides status - 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 - Schizoaffective disorder, unspecified 09/28/2019 13:19 [facility] [place] TYPE: Emergency COMPLAINT: - MEDICAL CLEARANCE DIAGNOSES: - Type 2 diabetes mellitus without complications - Allergy status to other drugs, medicaments and biological sub - Old myocardial infarction - Other [facility] (current) drug therapy - Allergy status to sulfonamides status - Gastro-esophageal reflux disease without esophagitis - Essential (primary) hypertension - Suicidal ideations - Encounter for other administrative examinations 09/26/2019 10:06 [facility] [place] TYPE: Emergency COMPLAINT: - MEDICAL CLEARANCE DIAGNOSES: - Other [facility] (current) drug therapy - Personal history of transient ischemic attack (TIA), and cere - Gastro-esophageal reflux disease without esophagitis - Allergy status to sulfonamides status - Old myocardial infarction - Schizoaffective disorder, unspecified - Allergy status to other drugs, medicaments and biological sub - Essential (primary) hypertension - 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 09/25/2019 13:35 [facility] [place] TYPE: Emergency COMPLAINT: - HEARING VOICES DIAGNOSES: - Type 2 diabetes mellitus without complications - Personal history of transient ischemic attack (TIA), and cere - Gastro-esophageal reflux disease without esophagitis - Schizoaffective disorder, unspecified - Suicidal ideations - 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 - Old myocardial infarction - Allergy status to sulfonamides status - Essential (primary) hypertension - Other [facility] (current) drug therapy - Allergy status to other drugs, medicaments and biological sub 09/18/2019 13:53 [facility] [place] TYPE: Emergency COMPLAINT: - MEDICAL CLEARANCE DIAGNOSES: - Type 2 diabetes mellitus without complications - Schizoaffective disorder, unspecified - Suicidal ideations - Allergy status to other drugs, medicaments and biological sub - Gastro-esophageal reflux disease without esophagitis - Old myocardial infarction - longterm (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 - Essential (primary) hypertension - Rash and other nonspecific skin eruption - Allergy status to sulfonamides status - 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 09/18/2019 10:33 [facility] [place] TYPE: Emergency COMPLAINT: - SUICIDAL THOUGHTS, HEARING VOICES DIAGNOSES: - Disorder of urea cycle metabolism, unspecified - 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 - Schizoaffective disorder, unspecified - Essential (primary) hypertension - Type 2 diabetes mellitus without complications - Gastro-esophageal reflux disease without esophagitis - Old myocardial infarction - Allergy status to sulfonamides status - Allergy status to other drugs, medicaments and biological sub - longterm (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 09/06/2019 11:40 [facility] [place] TYPE: Emergency COMPLAINT: - MEDICAL CLEARANCE DIAGNOSES: - Old myocardial infarction - Essential (primary) hypertension - Allergy status to sulfonamides status - Auditory hallucinations - 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 - Allergy status to other drugs, medicaments and biological sub - Type 2 diabetes mellitus without complications - Gastro-esophageal reflux disease without esophagitis 08/15/2019 15:26 [facility] [place] TYPE: Emergency COMPLAINT: - DIZZINESS DIAGNOSES: - Schizoaffective disorder, unspecified - 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 - Type 2 diabetes [...] ischemic attack (TIA), and cere - Other [facility] (current) drug therapy - Allergy status to [...] Allergy status to sulfonamides status - Other [facility] (current) drug therapy - Allergy status to [...] status to narcotic agent status - Other [facility] (current) drug therapy - Schizophrenia, unspecified 05/10/2019 14:24 [facility] [place] TYPE: Emergency COMPLAINT: - MEDICAL CLEARANCE DIAGNOSES: - Acquired absence of other specified parts of digestive tract - 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 - Gastro-esophageal reflux disease without esophagitis - 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 - Allergy status to other drugs, medicaments and biological sub - longterm (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 of 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 - Allergy status to narcotic agent status - Schizophrenia, unspecified - Personal history of transient ischemic attack (TIA), and cere - Allergy status to sulfonamides status - Essential (primary) hypertension - Old myocardial infarction 05/08/2019 15:14 [facility] TYPE: Emergency COMPLAINT: - MEDICAL CLEARANCE LIFEWAYS [...] status to sulfonamides status - 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 - Essential (primary) [...] cere - Old myocardial infarction - 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 - Allergy status to sulfonamides status - Other chest pain Plus 1 More Visit INPATIENT VISIT TRACKING (12 MO.) 05/16/2019 11:50 [facility] [place] TYPE: [facility] COMPLAINT: - SCHIZOAFFECTIVE D/O DIAGNOSES: - Schizoaffective disorder, unspecified [email or web address]
--- NOTE | 2020-04-20 20:33 | NUR ---
RECEIVED REPORT FROM DEX ACEVEDO RN.
--- NOTE | 2020-04-20 21:12 | NUR ---
PT TO ROOM 119, PER STRETCHER. A/O, SELF TRANSFERED FROM STRETCHER TO HER BED, REQUESTED TO SIT ON EDGE OF BED FOR BIT. DID STATE SHE WAS "SLIGHTLY" DIZZY WHEN SHE WAS TRANSFERING. PT PRIMARY RN, DYLAN, IN ROOM TO ADMIT PATIENT.
--- NOTE | 2020-04-20 22:10 | NUR ---
ASSESSMENT, VS AND I&O COMPLETED. LUNGS CLEAR, BOWEL TONES ACTIVE. HR SR @ 71. NO EDEMA NOTED. SCABS PRESENT ON BOTH KNEES, OPEN TO AIR. PT DENIES SOB OR LIGHTHEADEDNESS. PT AMBULATES SBA TO BR AND BACK TO BED. IV WNL, CDI, FLUSHED WELL. IV FLUIDS INFUSING PER ORDER. CMS INTACT. A&O X4. ICE WATER PROVIDED. NO OTHER NEEDS. CALL LIGHT IN REACH.
--- NOTE | 2020-04-20 22:51 | NUR ---
PT CALLS TO ASK FOR SNACK AND WALK. SNACK PROVIDED. PT WALKING IN ROOM, SBA. NO OTHER NEEDS. CALL LIGHT IN REACH.
--- NOTE | 2020-04-21 00:30 | NUR ---
PT CALLS TO ASK FOR SOMETHING TO EAT. FLOAT PILOT SUBMERSIBLE IS LOOKING FOR A LUNCH BOX, PT INFORMED.
--- NOTE | 2020-04-21 02:09 | NUR ---
VITALS AND I&OS DONE AND CHARTED. BEDSIDE TABLE AND CALL LIGHT IN REACH. FRESH ICE WATER GIVEN. PT SLEEPING WHEN I LEFT.
--- NOTE | 2020-04-21 03:07 | NUR ---
HELPED PT TO THE BATHROOM AND BACK TO BED. BEDSIDE TABLE AND CALL LIGHT IN REACH. PT NEEDS NOTHING MORE AT THIS TIME.
--- NOTE | 2020-04-21 03:43 | NUR ---
PT CALLS TO SAY "I FEEL LIKE I'M DYING." VS COMPLETED, WNL. IV WNL. LUNGS CLEAR. CMS INTACT. PT SAYS SHE HAS EPISODES LIKE THIS EVERYDAY. HE PCP AND THERAPIST IS AWARE. SHE SAYS THEY TELL HER "DO YOUR BEST AND TRY NOT TO ." PT IS NOT SOB, A&O X4. PT REASSURED OF EXAM AND VS RESULTS. PT FALLS BACK ASLEEP IMMEDIATELY. CALL LIGHT IN REACH.
--- NOTE | 2020-04-21 05:57 | NUR ---
PT SLEPT BRIEFLY LAST NIGHT. SHE HAD AN EPISODE OF FEELING "LIKE I AM GOING TO .", PT REASSURED. IV WNL, FLUSHED WELL. VSS. UOS. HR SR TRENDING IN THE 70s. PT DECLINES TO STAY WITH 60G CC DIET, HAVE CBG MONITORED OR INSULIN. SCABS NOTED ON BOTH KNEES. LUNGS CLEAR. BOWEL TONES ACTIVE.
--- NOTE | 2020-04-21 06:16 | NUR ---
VITALS AND I&OS DONE AND CHARTED. BEDSIDE TABLE AND CALL LIGHT IN REACH. FRESH ICE WATER GIVEN.
--- NOTE | 2020-04-21 06:55 | NUR ---
THIS RN IN ROOM TO ANSWER CALL LIGHT. PT REPORTS LEFT ARM AND SHOULDER PAIN. GA DENIES CHEST PAIN OR SOB. IV SITE TO ROSA LOCK, PRIMARY RN DYLAN DURANT.
--- NOTE | 2020-04-21 07:47 | NUR ---
REPORT RECEIVED. PT ASSITED TO CHAIR FOR BREAKFAST. COFFEE PROVIDED. CALL LIGHT IN REACH. TELE [address], HR 70 IN SR.
--- NOTE | 2020-04-21 07:50 | NUR ---
PT REFUSED BLOOD SUGAR.
--- NOTE | 2020-04-21 07:51 | NUR ---
PATIENT UP IN CHAIR, WASH CLOTH GIVEN. PATIENT REFUSED BLOOD SUGAR CHECK, RN NOTIFIED. CALL LIGHT IN REACH. NO FURTHER NEEDS AT THIS TIME.
--- NOTE | 2020-04-21 09:34 | NUR ---
PATIENT IN CHAIR FOR BREAKFAST, WASHCLOTH GIVEN. PATIENT REFUSED SHOWER, WANTS TO DO IT AT HOME. CALL LIGHT IN REACH. NO FURTHER NEEDS AT THIS TIME.
--- NOTE | 2020-04-21 09:45 | NUR ---
ROUNDED WITH DR MUÑOZ. DISCHARGE DISCUSSED. IV DC'D, TELE DC'D. DISHCARGE INSTRUCTIONS PROVIDED. VITALS TAKEN AND STABLE.
--- NOTE | 2020-04-23 16:13 | EKG ---
[facility] [address] [place] [address] Signed Normal sinus rhythm Left bundle branch block Abnormal ECG When compared with ECG of 05-JUL-2019 09:42, aberrant conduction is no longer present Left bundle branch block is now present Confirmed by RONALD DIAZ DO ([id number]) on 04/23/2020 4:13:13 PM Electronically Signed By: RONALD DIAZ DO 04/23/20 1613 PATIENT NAME: BERNARDA ALARCON AIDE Electrocardiogram DATE OF : 55 PHYSICIAN: RONALD DIAZ DO REPORT #: [id number] REPORT IS CONFIDENTIAL AND NOT TO BE RELEASED WITHOUT AUTHORIZATION
== END 2020-04-21 09:55 | disposition home or self-care (01) ==
LOC: ED 17:25 → MS 17:26
PROVIDERS: ADMIT Internal Medicine
DX: R55 Syncope and collapse (principal); I48.0 Paroxysmal atrial fibrillation; E11.65 Type 2 diabetes mellitus with hyperglycemia; K21.9 Gastro-esophageal reflux disease without esophagitis; F25.9 Schizoaffective disorder, unspecified; Z88.2 Allergy status to sulfonamides; Z88.8 Allergy status to other drugs, medicaments and biological substances; Z79.899 Other long term (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
CPT/HCPCS: 80053; 83036; 83735; 84484; 85025; 93005; 93010; 96360; 96361; 99285-25; C9803; G0378; J7121; U0002

== ENCOUNTER 2020-04-28 18:42 | Emergency (ER) | payer MEDICARE ==
[~2020-04-28] VITALS: Ht 170.2 cm; Wt 121.6 kg
--- OUTSIDE RECORDS SUMMARY | ~2020-04-28 | XMS | Encounter Summary ---
Demographics + + + | Address | [address] | | | [place] [address] | + + + | Home Phone [...] [place] | | | | | [address] | | + + + + + Care Team Providers + +------+ + | Care Business Trainer Name | Role | Phone | + [...] + + | 08/24/ | Documentati | [facility] | Katharine Moncada, | Other (urgent | | 2019 | on | CARDIOLOGY [place] | Technologist | report) | | | | [address] | | | | | | [place] | | | | | | [address] | | | | | | [phone] | | | +--------+ + + + [...] encounter Progress Notes Katharine Moncada, Technologist - 08/24/2019 8:33 AM PDTReceived urgent report 08/24/19 Pt self triggered urgent report 08/23/19 at 17:21 101 BPM 30 day monitor was placed 08/09/19 [...] | | | | | [place] [address] | | | | | | [phone] | | | | | | | | +--------+ + + + + | 06/26/ | Office | Cardiology | Dora De La Torre | | | 2020 | Visit | | [address] | | | | | | [address] | | | | | | [place] [address] | | | | | | [phone] | | | | | | | | +--------+ + + + + documented as of this encounter Visit Diagnoses Not on filedocumented in this encounter"
--- OUTSIDE RECORDS SUMMARY | ~2020-04-28 | XMS | Encounter Summary ---
Demographics + + + | Address | [address] | | | [place] [address] | + + + | Home Phone [...] [place] | | | | | [address] | | + + + + + Care Team Providers + +------+ + | Care Publication Designer Name | Role | Phone | [...] + | 06/26/ | Telephone | [facility] | Frandy Teresa, | Other | | 2013 | | NEUROSURGERY [address] | DO [address] | | | | | [address] | [address] [place], [place] | | | | | [place], [place] | [id number] | | | | | [address] | | | | | | [phone] | | | +--------+ + + + [...] will have them re-faxed. SHAYNE ARAGON elephone Encounte r - Lashawn Metzger - 06/27/2014 8:21 AM PDTPatient returned call. elephone Encounter - Shayne Aragon Cert MA - 12/2013 4:45 PM PDTLeft message for Cindy, asking her to return my call. SHAYNE ARAGON elephone Encounte r - Carol Dash - 06/26/2014 12:01 PM PDTPatient called wanting [...] [address] | | | | | | [place] [address] | | | | | | [phone] | | | | | | | | +--------+ + + + + | 06/26/ | Office | Cardiology | Dora De La Torre | | | 2019 | Visit | | [address] | | | | | | [address] | | | | | | [place] [address] | | | | | | [phone] | | | | | | | | +--------+ + + + + documented as of this encounter Visit Diagnoses Not on filedocumented in this encounter"
--- OUTSIDE RECORDS SUMMARY | ~2020-04-28 | XMS | Encounter Summary ---
Demographics + + + | Address | [address] | | | [place] [address] | + + + | Home Phone | | + + + | Preferred Language | Unknown | + + + | Marital Status | Single | + + + | Jehovah'S Witness Affiliation | Unknown | + + + | Race | White | + + + | Ethnic Group | Not or | + + + Author + + + | Author | [facility] | + + + | Organization | [facility] | + + + | Address | Unknown | + + + | Phone | Unavailable | + + + Support + + + + + | Name | Relationship | Address | Phone | + + + + + | Kelsy Bautista | ECON | [address] | | | | | [place] | | | | | [address] | | + + + + + Care Team Providers + +------+ + | Care Fresh Foods Technician Name | Role | Phone | + +------+ + PCP | Unavailable | + +------+ + Encounter Details +--------+ + + + + | Date | Type | Department | Care Team | Description | +--------+ + + + + | 07/03/ | Results | Infectious | Deon Lopez, | | | 1996 | Only | Diseases [address] | MD | | | | | [address] | | | | | | Mailcode: L608 | | | | | | Outpatient Clinic | | | | | | [place], | | | | | | [place] [address] | | | | | | [phone] | | | +--------+ + + + [...] | | + +---------+ + + | [facility] DEPARTMENT OF | | | | | RADIOLOGY | | | | + +---------+ + + documented in this encounter Visit Diagnoses Not on filedocumented in this encounter"
--- OUTSIDE RECORDS SUMMARY | ~2020-04-28 | XMS | Encounter Summary ---
Demographics + + + | Address | [address] | | | [place] [address] | + + + | Home Phone [...] [place] | | | | | [address] | | + + + + + Care Team Providers + +------+ + | Care Splicing Supervisor Name | Role | Phone | [...] | | | | | | | [address] | | | | | | | Phone: | | | | | | | [phone] | | | | | | | Fax: | | | | | | | [phone] | | +--------+ + + + + + Reason for Visit + + + | Reason | Comments | + + + | Follow-up | 4 Week PO | + + + Encounter Details +--------+---------+ + + + | Date | Type | Department | Care Team | Description | +--------+---------+ + + + | 07/25/ | Office | [facility] | Frandy Teresa, | Lumbar spondylosis | | 2013 | Visit | NEUR[address]UR[address]ERY [address] | DO [address] | (Primary Dx); S/P | | | | [address] | [address] [place], [place] | lumbar fusion | | | | [place], [place] | [address] | | | | | [address] | | | | | | [phone] | | | +--------+---------+ + + + [...] m the original. Frandy Teresa DO [address] [place] [address] FAX: NEUROSURGERY SURGICAL FOLLOW-UP CHIEF COMPLAINT: Chief [...] Take 15 mg by mouth nightl y. [place]-3 Fatty Acids (FISH OIL CONCENTRATE) 1000 MG [...] [address] | | | | | | [place] [address] | | | | | | [phone] | | | | | | | | +--------+ + + + + | 06/26/ | Office | Cardiology | Dora De La Torre | | | 2020 | Visit | | [address] | | | | | | [address] | | | | | | [place] [address] | | | | | | [phone] | | | | | | | [...] + | MISCELLANEOUS LAB | | | [phone] | + +---------+ + + | MISCELANIOUS LAB | | | [phone] | + +---------+ + + documented in this encounter Visit Diagnoses + + | Diagnosis | + + | Lumbar spondylosis - Primary Lumbosacral spondylosis without myelopathy | + + | S/P lumbar fusion Arthrodesis status | + + documented in this encounter
--- OUTSIDE RECORDS SUMMARY | ~2020-04-28 | XMS | Encounter Summary ---
Demographics + + + | Address | [address] | | | [place] [address] | + + + | Home Phone | | + + + | Preferred Language | Unknown | + + + | Marital Status | | + + + | Moravian Affiliation | 1013 | + + + | Race | Unknown | + + + | Ethnic Group | Unknown | + + + Author + + + | Author | [facility] | | | and [place] | + + + | Organization | [facility] | | | and [place] | + + + | Address | Unknown | + + + | Phone | Unavailable | + + + Support + + + + + | Name | Relationship | Address | Phone | + + + + + | Araceli Sibley | ECON | [place] | | | | | [address] | | + + + + + Care Team Providers + +------+ + | Care Manager Underwriting Name | Role | Phone | + [...] | Radiology | [facility] | | | | | atrial | INTEGRATED [employer] LAYOUT DESIGN[address] | [address] | | | | | fibrillation | [address] | [place] | | | | | History of | [address] | [place], [place] | | | | | stroke | [place], [place] | [address] | | | | | Sinus | [address] | Phone: | | | | | tachycardia | Phone: | [phone] | | | | | by | [phone] | Fax: | | | | | electrocardi | Fax: | [phone] | | | | | ogram New | [phone] | | | | | | onset [...] + + | 01/09/ | Office | [facility] | Roxannmiguel ángelDora | History of atrial | | 2020 | Visit | CARDIOLOGY [place] | [address] | fibrillation | | | | [address] | [address] | (Primary Dx); Benign | | | | [address] | [place] [address] | essential HTN; | | | | [place], [place] | [phone] | History of | | | | [address] | | hypothyroidism; | | | | [phone] | | Stress | | | | [...] this encounter Patient Instructions Patient Instructions Dora D eLa Torre FNP - 01/10/2020 11:00 AM PDT I also ordered you an urgent Echo to be done at [facility] to follow up on new left bundle [...] of fatigue and shortness of breath. Her [id number] VASC score is 4 (stroke, HTN, gender) [...] go back to volunteering at the local [employer], though this plan will need to be on hold with current epidemic restrictions . She reports after she lost 160 pounds with a gastric sleeve that she was retested for sle ep apnea 2 years ago, and told the results negative, but has not had CPAP for 3 years She has previously seen Dr. Garland in [place], and different sleep provider in [facility] when lived over there. She reports [...] . Genitourinary: Denies hematuria. Musculoskeletal:DDD, back surgery 2013 resolved pain. Denies myalgias,arthralgias. Skin: Denies color change. Denies rash or lesions Neurological: Dizzy and lightheaded now resolves. no recent syncope. History of stroke 2012 affected left side with weakness to left arm and leg, residual left-sided droop to mouth, n o other deficits.Denies history of seizures. Denies numbness. Hematological/Oncology . Bruises easily. Denies bleeding Denies history of cancer. Denies Hx blood transfusion Endocrine: Hx elevated blood sugars with stress (300-500?). Hx Hypothyroidism off medicati ons . Denies excessive thirst or hunger. Psychiatric/Behavioral: Bipolar/Schizophrenia. Tx'd by [employer] Vaccines: Current on flu vaccine: 2019 Current on pneumonia vaccine:PPSV 23 05/29/2013 Habits/Social : Denies history of smoking. Denies EtOH use. Denies recreational or illici t drug use. Exercises sporadically. Lives in [place] . Outpatient Medications Prior to Visit Medication [...] by mouth nightly. Blood Glucose Monitoring Suppl (Food on the Table VERIO FLEX SYSTEM) w/Device KIT by Does [...] nonspecific ST-T wave abnormality rate 82 bpm, MO 176 ms, QRS 80 ms, QTC 446 ms tracing personally reviewed by me EK12/17/2019: Sinus tachycardia, nonspecific ST wave abnormalities, rate 105 bpm, MO 196 ms, QRS 74 ms, QTC 430 ms, tracing personally reviewed by me, and compared to EKG performed in February 2019, rate is less well-controlled EK01/10/2020 (metoprolol XL 50 mg twice daily. Normal sinus rhythm, new left bundle bran ch block Rate 74 bpm, MO 204 ms, QRS 138 ms, QTC 488 ms, tracing personally reviewed by me and Dr. Peterson. compared to EKG performed in November, new left bundle branch block, lead III has lower voltage QRS also in aVL and aVF, and improved voltage to anterior leads and rate i s better controlled. LABS Labs: 12/26/2018: ( [facility])CMP: Sodium 139, potassium 4.2, chloride 99, BUN 10, creatinine 0. 7, BNP 28. CBC: WBC 7.8, hemoglobin 14.3, hematocrit 42.7, platelets 214 Labs: 09/28/2019:( [facility]) CBC: WBC 7.8, hemoglobin 14.9, hematocrit 43.8, platelets 221. C MP: Sodium 132, potassium 4.2, chloride 95, AST 76, ALT 76, alk phos 134 Labs: 10/11/2019:( [facility]) CBC: WBC 6.7, RBC 4.97, hemoglobin 15.2, hematocrit 44.7, platel ets 200. CMP: Glucose 385, BUN 7, creatinine 0.62, GFR 97, sodium 131, potassium 4.1, chlor kelby 95, albumin 4.3, total bilirubin 0.6, AST 75, ALT 73, alk phos 144. Thyroid: TSH 4.27 Labs: 10/12/2020:( [facility]) CBC: WBC 7, RBC 4.93, hemoglobin 14.7, hematocrit 44.1, platele ts 186 normal UA CMP: Glucose 381, BUN 6, creatinine 0.63, GFR 95, sodium 133, potassium 3.8 , chloride 97, albumin 4.3, total bili 0.6, AST 62, ALT 75, alk phos 145 thyroid: TSH 3.07 Labs: 10/20/2019:( [facility]) CBC: WBC 7.1, RBC 4.93, hemoglobin [...] and reviewed her EKG results with her electrical continuity tester, Dr. Peterson, who is in the [place] today, and the plan is to get an updated echo to evaluate her for any new wall motion ab normalities. If she has any wall motion abnormalities, she will need to have further evalua tion for ischemic heart disease in [place] such as a stress test or angiogram I reviewed her EKG with her, and discussed this plan with her. The Echo will be ordered on an urgent basis, is currently a restriction on all nonurgent testing at [facility] . She was agreeable to this plan [...] continuity of care purp ose [place] BUCIO [facility] Cardiology 01/10/2020 docume nted in this encounter [...] [address] | | | | | | [place] [address] | | | | | | [phone] | | | | | | | | +--------+ + + + + | 06/26/ | Office | Cardiology | Roxannmiguel ángelDora | | | 2019 | Visit | | [address] | | | | | | [address] | | | | | | [place] [address] | | | | | | [phone] | | | | | | | [...] | | | | | | Yesenia ([id number]) on | | | | | | [...]
--- OUTSIDE RECORDS SUMMARY | ~2020-04-28 | XMS | Encounter Summary ---
Demographics + + + | Address | [address] | | | [place] [address] | + + + | Home Phone [...] Author | [facility] [...] [place] | | | | | [address] | | + + + + + Care Team Providers + +------+ + | Care Non Food Receiving Clerk Name | Role | Phone | + +------+ + | Adriano Patrick MD | PCP | | + +------+ + Reason for Visit +--------+ + | Reason | Comments | +--------+ + | Other | Hospital sent patient to us, passed out in bathroom | +--------+ + Encounter Details +--------+---------+ + + + | Date | Type | Department | Care Team | Description | +--------+---------+ + + + | 06/27/ | Office | [facility] | Yecenia Richardson, | Hypertension, | | 2019 | Visit | CARDIOLOGY [place] | MD Nitin RODRIGUES | unspecified type | | | | [address] | [place], [place] | (Primary Dx); | | | | [facility] | [address] | Bradycardia | | | | [place] | | | | | | [address] | | | | | | [phone] | | | +--------+---------+ + + + [...] + + + | Blood Pressure | 162/82 | 06/27/2019 1:09 PM | | | | | PDT | | + + + + + | Pulse | 91 | 06/27/2019 1:09 PM | | | | | PDT | | + + + + + | Temperature | - | - | | + + + + + | Respiratory Rate | - | - | | + + + + + | Oxygen Saturation | 94% | 06/27/2019 1:09 PM | | | | | PDT | | + + + + + | Inhaled Oxygen | - | - | | | Concentration | | | | + + + + + | Weight | - | - | | + + + + + | Height | 170.2 cm (5' 7") | 06/27/2019 1:09 PM | | | | | PDT | | + + + + + | Body Mass Index | - | - | | + + + + + documented in this encounter Progress Notes Yecenia Richardson MD - 06/27/2019 12:45 PM PDTFormatting of this note might be different f rom the original. Date of visit: 06/27/2019 Primary Care Physician: Adriano Patrick MD CHIEF COMPLAINT: Chief Complaint Patient presents with Other Hospital sent patient to us, passed out in bathroom HISTORY OF PRESENT ILLNESS: Cindy is 63 y.o. here for evaluation on urgent basis. Had an appointment today in [facility]. She has been feeling dizzy as of this morning. Went to the cafeteria got some milk, she felt nauseous after went into the bathroom where s he had thrown up the milk. She sat on the toilet seat, she thinks she passed out for almost minutes however was unwitnessed. Denies any palpitation, chest pain, shortness of breath. Regularly follows up with Dr. Clover Faye. Did not want to go to the emergency room because "they always say follow-up with your physi criselda." Was evaluated by Dr. Faye for chest pain, she had unremarkable ischemic burden evaluation, e vent monitor for 2 weeks was also performed showing unremarkable arrhythmia only short episo david of paroxysmal supraventricular tachycardia. Coronary angiogram in 2013 that was reporte d with normal coronaries. Recent echocardiogram showed hyperdynamic LV function with no wal l motion normality and no significant valvular pathology. Past medical history, SH, FH, and medications were reviewed in the chart. Medications: Outpatient Encounter Medications as of 06/27/2019 Medication Sig Dispense Refill acetaminophen (TYLENOL) 325 mg tablet Take 325 mg by mouth every 6 (six) hours as neede d for Pain. albuterol 90 mcg/puff inhaler Inhale 2 puffs into the lungs every 4 (four) hours as nee ded for Wheezing. amitriptyline (ELAVIL) 50 mg tablet Take 50 mg by mouth nightly. asenapine (SAPHRIS) [address] 10 mg under the tongue Daily. aspirin-dipyridamole (AGGRENOX) 25-200 mg per 12 hr capsule Take 1 capsule by mouth 2 t imes daily. atenolol (TENORMIN) 25 mg tablet Take 25 mg by mouth Daily. atenolol (TENORMIN) 50 mg tablet Take 50 mg by mouth daily. atorvaSTATin (LIPITOR) 10 mg tablet Take 10 mg by mouth daily (after dinner). B Complex Vitamins (VITAMIN B COMPLEX PO) Take by mouth. Blood Glucose Monitoring Suppl ([employer] VERIO FLEX SYSTEM) w/Device KIT by Does not ap ply route. budesonide-formoterol (SYMBICORT) 160-4.5 mcg/puff inhaler Inhale 2 puffs into the lung s 2 (two) times daily. Calcium Carbonate Antacid (TUMS E-X 750 PO) Take by mouth. calcium carbonate antacid (TUMS ULTRA 1000) 1000 MG CHEW Take 1,000 mg by mouth 3 (thre e) times daily. calcium citrate (CALCITRATE) 950 mg tablet Take 2 tablets by mouth 2 times daily. Lunch and dinner CALCIUM CITRATE PO Take 500 mg by mouth Daily. Cholecalciferol (VITAMIN D-3) 69869 units CAPS Take 50,000 Units by mouth Once a week. clonazePAM (KLONOPIN) 0.5 mg tablet Take 0.5 mg by mouth 2 (two) times daily as needed for Anxiety. Cyanocobalamin (VITAMIN B-12 PO) Take by mouth. cyanocobalamin (VITAMIN B-12) 1000 MCG tablet Take 1,000 mcg by mouth daily. dexlansoprazole (DEXILANT) [address] capsule Take 60 mg by mouth Daily. Digestive Enzymes (PAPAYA ENZYME) CHEW Take by mouth. Digestive Enzymes TABS Take 2 tablets by mouth 3 times daily (with meals). divalproex (DEPAKOTE ER) 250 mg 24 hr tablet Take 1,250 mg by mouth nightly. divalproex (DEPAKOTE) 250 mg EC tablet Take 250 mg by mouth. ergocalciferol (VITAMIN D-2) 50,000 units capsule Take 50,000 Units by mouth Once a wee k. fish oil 1,000 mg capsule Take 1,250 mg by mouth 2 times daily. fluocinonide (LIDEX) 0.05 % ointment Apply to affected area twice daily as needed furosemide (LASIX) 40 mg tablet Take 40 mg by mouth Daily. gabapentin (NEURONTIN) 300 mg capsule Take 300 mg by mouth 3 times daily. gentamicin (GENTAK) 0.3% ophthalmic ointment Place into the left eye 4 times daily. hydrochlorothiazide 25 mg tablet Take 25 mg by mouth Daily. HYDROcodone-acetaminophen (NORCO) 10-325 mg per tablet Take 1-2 tablets by mouth every 4 hours as needed for Pain. 60 tablet 0 HYDROcodone-acetaminophen (NORCO) 5-325 mg per tablet Take 1 tablet by mouth. hydrOXYzine (VISTARIL) 50 MG capsule Take 100 mg by mouth 3 (three) times daily as need ed for Itching. ibuprofen (ADVIL,MOTRIN) 800 MG tablet Take 800 mg by mouth every 8 hours as needed. isosorbide dinitrate (ISORDIL) 30 MG tablet Take 30 mg by mouth daily (after breakfast) . levothyroxine (SYNTHROID) 200 mcg tablet Take 125 mcg by mouth every morning (before br eakfast). levothyroxine (SYNTHROID, LEVOTHROID) 112 mcg tablet Take 112 mcg by mouth every mornin g (before breakfast). lisinopril (PRINIVIL, ZESTRIL) 10 mg tablet Take 1 tablet by mouth Daily. 90 tablet 3 loperamide (IMODIUM) 2 mg capsule Take 2 mg by mouth 4 (four) times daily as needed for Diarrhea. Magnesium 250 MG TABS Take 2 tablets by mouth nightly. magnesium oxide (MAG-OX) 400 mg tablet Take 500 mg by mouth nightly. Melatonin [address] 5 mg under the tongue nightly. metFORMIN (GLUCOPHAGE) 500 mg tablet Take 500 mg by mouth 2 times daily (with breakfast & dinner). metFORMIN (GLUCOPHAGE-XR) 500 mg 24 hr tablet Take 1 tablet by mouth daily (with breakf ast). 90 tablet 3 metFORMIN (GLUMETZA) 500 MG 24 hr tablet Take 500 mg by mouth daily (with breakfast). methocarbamol (ROBAXIN) 750 mg tablet Take 750 mg by mouth as needed. Multiple Vitamins-Minerals (ADULT MULTIVITAMIN WITH MINERALS/IRON) TABS Take 1 tablet b y mouth Daily. chewable Multiple Vitamins-Minerals (CENTRUM SILVER PO) Take 1 tablet by mouth Daily. naproxen sodium (ALEVE) 220 MG tablet Take 220 mg by mouth every 12 hours. nitroglycerin (NITROSTAT) 0.[address] 0.4 mg under the tongue every 5 minute s as needed. OLANZapine (ZYPREXA) 10 MG tablet Take 10 mg by mouth nightly. [place]-3 Fatty Acids (FISH OIL CONCENTRATE) 1000 MG CAPS Take 1,000 mg by mouth 2 times daily. 60 each 5 omeprazole (PRILOSEC) 40 MG capsule Take 40 mg by mouth every morning (before breakfast ). oxyCODONE-acetaminophen (PERCOCET) 10-325 mg per tablet Take 1 tablet by mouth every 6 hours as needed for Pain. PARoxetine (PAXIL) 20 mg tablet Take 20 mg by mouth every morning. PARoxetine (PAXIL) 20 mg tablet Take 20 mg by mouth Daily. Thiamine HCl (VITAMIN B-1 PO) Take by mouth. tocopherol (VITAMIN E) 400 units capsule Take 400 Units by mouth 2 times daily. Triamcinolone Acetonide (NASACORT AQ NA) by Nasal route. UNCODED MEDICATION Diagnosis: Obstructive Sleep Apnea ICD-9: 327.23 Length of Need: 99 Months 1 Device 0 zaleplon (SONATA) 10 MG capsule 0 zaleplon (SONATA) 5 mg capsule 2 No facility-administered encounter medications on file as of 06/27/2019. Allergies Allergies Allergen Reactions Sulfa Antibiotics Rash and Hives Duloxetine Other (See Comments) Muscle weakness, profuse sweating Diaphoresis, and complete muscle weakness. Erythromycin Nausea And Vomiting Fluoxetine Other (See Comments) "mind racing" Mind was racing Haloperidol Other (See Comments) "mind racing" Mind altering Prochlorperazine Other (See Comments) Made her feel hyper/jittery Prochlorperazine Maleate Other (See Comments) Skin crawling/agitation Promethazine Other (See Comments) Makes her skin crawl Promethazine Hcl Other (See Comments) Skin crawling/agitation Topamax Other (See Comments) "mind racing and dellusions" Demerol Nausea And Vomiting Cyclobenzaprine Hallucination Meperidine Nausea And Vomiting REVIEW OF SYSTEMS: Constitutional: Positive for fatigue. No fever, chills, and rigors. No report of weight ch gwendolyn. HEENT: Negative for nosebleeds, ear discharge, nasal congestion or soar throat. Eyes: Negative for visual disturbance, redness, or secretion. Respiratory: Negative for cough, sputum production, hemoptysis, wheezing. Cardiovascular: As HPI. Gastrointestinal: Positive for nausea and vomiting x1. Genitourinary: Negative for dysuria or hematuria. Musculoskeletal: Arthritic pain. Skin: Negative for rash. Neurological: Positive for dizziness. No numbness. No recent falls. No slurred speech. Hematological: No significant bruising. Psychiatric/Behavioral: No depression or anxiety. PHYSICAL EXAM Vital Signs: BP 162/82 | Pulse 91 | Ht 1.702 m (5' 7") | SpO2 94% | BMI 45.89 kg/m GENERAL APPEARANCE: Alert, oriented, cooperative, no distress, appears stated age. HEENT: Extraocular movements were intact. No jaundice. Pupiles round and reactive. NECK: No JVD, lymphadenopathy. Carotid upstrokes normal. No carotid bruit heard. CARDIAC: Regular rhythm and rate. There is normal S1 and S2. No galop. No murmur. CHEST: Normal bilateral symmetrical chest excursion.ackles or wheezing. No evidence of dull ness. ABDOMEN: Soft.No tenderness or guarding. No palpable organs. Active bowel sounds. EXTREMITIES: No lower extremities edema, cyanosis or clubbing. NEURO: Alert and oriented times three with no focal deficit. Cranial nerves are grossly no rmal. SKIN: Warm and dry. No rash. Psych: Normal affect and mood. DATA Lab Results Component Value Date/Time NA 139 07/06/2015 15:45 NA 131 (L) 03/06/2015 11:18 NA 127 (L) 02/26/2015 13:54 K 4.0 07/06/2015 15:45 K 4.2 03/06/2015 11:18 K 3.6 02/26/2015 13:54 CO2 25 07/06/2015 15:45 CO2 31 03/06/2015 11:18 CO2 28 02/26/2015 13:54 BUN 9 07/06/2015 15:45 BUN 12 03/06/2015 11:18 BUN 13 02/26/2015 13:54 CALCIUM 9.1 07/06/2015 15:45 CALCIUM 9.6 03/06/2015 11:18 CALCIUM 9.1 02/26/2015 13:54 Lab Results Component Value Date/Time WBC 8.1 07/06/2015 15:45 WBC 7.7 02/26/2015 13:54 HGB 13.9 07/06/2015 15:45 HGB 11.0 (L) 02/26/2015 13:54 HCT 43.1 07/06/2015 15:45 HCT 34.2 02/26/2015 13:54 MCV 88.3 07/06/2015 15:45 MCV 81.2 (L) 02/26/2015 13:54 PLT 201 07/06/2015 15:45 PLT 304 02/26/2015 13:54 No results found for: CHOL, TRIG, HDL, LDL, GLUF, TSH EC06/27/2019 Ordered and reviewed by myself showed normal sinus rhythm, left axis deviation, voltage cri teria for LVH, no signs of preexcitation, QT is normal. 04/19/2019 Reviewed showed normal sinus rhythm, normal EKG, normal QT interval, no Brugada pattern, no signs of preexcitation. Last Echo: Last Stress test: Last Cath: Last US carotid: ASSESSMENT: Patient is 63 y.o. with 1. Syncopal episode? Unwitnessed possible vasovagal. 2. Palpitation with no significant findings on event monitor for 2 weeks. 3. Morbid obesity. 4. Obstructive sleep apnea. 5. Hypothyroidism. 6. Type 2 diabetes mellitus. 7. Hypertension. Plan: Reviewed EKG, previous notes, echocardiogram. Possible vasovagal event. Patient denies any symptoms at this time. She feels dizzy with going her head, likely could be vestibular etiology. I recommended emergency room evaluation however the patient wants to go home and rest at th is time. She is awake alert x3 with no focal deficit. Denies any chest pain or shortness of breath. She has a ride home she does not drive. She will call with any change in symptoms or present to the emergency room if any recurrent episode. She has an appointment with Dr. Faye on July 05, 2019. *This report has been prepared using a voice recognition system. The report was reviewed fo r accuracy, however, sound-alike word errors, addition and/or deletions may occur. If there is any question about this report please contact me. Yecenia Richardson MD, MPH P M PDTdocumented in this encounter Plan of Treatment [...] [address] | | | | | | [place] [address] | | | | | | [phone] | | | | | | | | +--------+ + + + + | 06/26/ | Office | Cardiology | Dora De La Torre | | | 2019 | Visit | | [address] | | | | | | [address] | | | | | | [place] [address] | | | | | | [phone] | | | | | | | | +--------+ + + + + + +------+--------+ + + | Name | Type | Priori | Associated Diagnoses | Order Schedule | | | | ty | | | + +------+--------+ + + | ECG 12 lead | ECG | Routin | Hypertension, | Ordered: 06/27/2019 | | | | e | unspecified type | | | | | | Bradycardia | | + +------+--------+ + + documented as of this encounter Visit Diagnoses + + | Diagnosis | + + | Hypertension, unspecified type - Primary | + + | Bradycardia Other specified cardiac dysrhythmias | + + documented in this encounter
--- OUTSIDE RECORDS SUMMARY | ~2020-04-28 | XMS | Encounter Summary ---
Demographics + + + | Address | [address] | | | [place] [address] | + + + | Home Phone [...] [place] | | | | | [address] | | + + + + + Care Team Providers + +------+ + | Care Scissors Grinder Name | Role | Phone | + +------+ + | Natalee Andersen NP | PCP | | + +------+ + Encounter Details +--------+ + + + + | Date | Type | Department | Care Team | Description | +--------+ + + + + | 06/25/ | Hospital | [facility] | Frandy Teresa, | Diabetes mellitus | | 2014 | Encounter | MED CTR OR INTRA OP | DO [address] | (HCC) (Primary Dx) | | | | [address] | [place] [address] [place], [place] | | | | | [place], [place] | [address] | | | | | [address] | | | | | | [phone] | | | +--------+ + + + [...] + + + +---------+ + + | Ash-3 Fatty | Take 1,000 mg by | [...] documented in this en counter H&P Notes CHAPITO ABREU [facility] - 06/21/2014 12:00 AM PDT 14 1:21 [...] Madison MD at 06/26/2014 8:05 AM PDTONBRUCE MEDINA - 06/26 12:00 AM PDT NBRUCE MEDINA - 06/26/2014 12:00 AM PDT NBASE SCAN [facility] - 06/12/2014 12:00 AM PDTElectronically signed by Mariah Schulte at 06/12 7:30 AM PDTONBASE SCAN [facility] - 06/11/2014 12:00 AM PDT documented in this encounter Miscellaneous Notes Miscellaneous - ONBASE SCAN [facility] - 06/26/2014 12:00 AM PDT lan of [...] stenosis, lumbar region, without neurogenic claudication ). Regulatory Compliance Director visit is in response to an electronic spiritual care consult request. Patient wa s resting comfortably in bed; she was attended by her mom and dad - both sate nearby and see med very attentive and supportive. Cindy is Anabaptist, attends [employer], and is strong in her rangel. She is excited about taking care of her back problem and fe els very secure in Dr. Teresa's care. She welcomed prayer, and expressed appreciation for [facility]. Follow up with regular visits, emotional and spiritual support. iscellaneo us - ONBASE SCAN [facility] - 06/25/2014 12:00 AM PDTElectronically signed by [...] [address] | | | | | | [place] [address] | | | | | | [phone] | | | | | | | | +--------+ + + + + | 06/26/ | Office | Cardiology | Dora De La Torre | | | 2019 | Visit | | [address] | | | | | | [address] | | | | | | [place] [address] | | | | | | [phone] | | | | | | | [...] | | | FILTRATION | mL/min/1.73m2 | [facility] | | | [facility] | RATE,ESTIMATED | | MEDICAL | | | | mL/min/1.97k6Baha than | | CENTER - | | [...] | | | | | mg/dL | [facility] | | | | | | [...] + | [facility] | [address] | [place] | [phone] | | [facility] | | [address] | | | - LABORATORY | | | | + + + + + | [facility] | [address] | [place] | | | [facility] | | [id number] | | | - LABORATORY | [...] + | [facility] | [address] | [place], [place] | [phone] | | [facility] | | [address] | | | - LABORATORY | | | | + + + + + | [facility] | [address] | [place], [place] | | | [facility] | | [id number] | | | - LABORATORY | | | | + + + + + Pina DE LA CRUZ (06/25/2014 1:58 PM PDT) + +-------+ + [...] + | [facility] | [address] | [place] | [phone] | | [facility] | | [address] | | | - LABORATORY | | | | + + + + + | [facility] | [address] | [place] | | | [facility] | | [address], [facility] | | | [...] [place] | | | [facility] | | [address] | | | - BLOOD BANK | [...] + | [facility] | [address] | [place], [place] | [phone] | | [facility] | | [address] | | | - LABORATORY | | | | + + + + + | [facility] | [address] | [place], [place] | | | [facility] | | [address], [facility] | | | [...]
--- OUTSIDE RECORDS SUMMARY | ~2020-04-28 | XMS | Encounter Summary ---
Demographics + + + | Address | [address] | | | [place] [address] | + + + | Home Phone [...] [place], [place] | | | | | [address] | | + + + + + Care Team Providers + +------+ + | Care Firebrick Layer Name | Role | Phone | + +------+ + PCP | Unavailable | + +------+ + Encounter Details +--------+ + + + + | Date | Type | Department | Care Team | Description | +--------+ + + + + | 04/16/ | [facility] | [facility] | Deon Gonzales | | | 2004 | Encounter | MED CTR SLEEP | MD Laureano [address] | | | | | [place] [address] | [facility] | | | | | [place], [place] | [place] [address] | | | | | [address] | [phone] | | | | | [phone] | | | +--------+ + + + [...] | | | | | [place] [address] | | | | | | [phone] | | | | | | | | +--------+ + + + + | 06/26/ | Office | Cardiology | Dora De La Torre | | | 2019 | Visit | | [address] | | | | | | [address] | | | | | | [place] [address] | | | | | | [phone] | | | | | | | | +--------+ + + + + documented as of this encounter Visit Diagnoses Not on filedocumented in this encounter"
--- OUTSIDE RECORDS SUMMARY | ~2020-04-28 | XMS | Encounter Summary ---
Demographics + + + | Address | [address] | | | [place] [address] | + + + | Home Phone [...] [place] | | | | | [address] | | + + + + + Care Team Providers + +------+ + | Care Drug Safety Associate Name | Role | Phone | [...] + + | 08/13/ | Documentati | [facility] | Katharine Moncada, | Other (urgent | | 2019 | on | CARDIOLOGY [place] | Technologist | report) | | | | [address] | | | | | | [place] | | | | | | [address] | | | | | | [phone] | | | +--------+ + + + [...] | | | | | [place] [address] | | | | | | [phone] | | | | | | | | +--------+ + + + + | 06/26/ | Office | Cardiology | Dora De La Torre | | | 2020 | Visit | | [address] | | | | | | [address] | | | | | | [place] [address] | | | | | | [phone] | | | | | | | | +--------+ + + + + documented as of this encounter Visit Diagnoses Not on filedocumented in this encounter"
--- OUTSIDE RECORDS SUMMARY | ~2020-04-28 | XMS | Encounter Summary ---
Demographics + + + | Address | [address] | | | [place] [address] | + + + | Home Phone [...] [place] | | | | | [address] | | + + + + + Care Team Providers + +------+ + | Care Cardiology Nurse Name | Role | Phone | [...] + + | 08/15/ | Documentati | [facility] | Katharine Moncada, | Other (urgent | | 2019 | on | CARDIOLOGY [place] | Technologist | report) | | | | [address] | | | | | | [place] | | | | | | [address] | | | | | | [phone] | | | +--------+ + + + [...] | | | | | [place] [address] | | | | | | [phone] | | | | | | | | +--------+ + + + + | 06/26/ | Office | Cardiology | Dora De La Torre | | | 2020 | Visit | | [address] | | | | | | [address] | | | | | | [place] [address] | | | | | | [phone] | | | | | | | | +--------+ + + + + documented as of this encounter Visit Diagnoses Not on filedocumented in this encounter"
--- OUTSIDE RECORDS SUMMARY | ~2020-04-28 | XMS | Encounter Summary ---
Demographics + + + | Address | [address] | | | [place] [address] | + + + | Home Phone [...] [place] | | | | | [address] | | + + + + + Care Team Providers + +------+ + | Care Make Up Editor Name | Role | Phone | + [...] [place] | | | | | | [address] | | | | | | [phone] | | | +--------+ + + + [...] | | | | | [place] [address] | | | | | | [phone] | | | | | | | | +--------+ + + + + | 06/26/ | Office | Cardiology | Dora De La Torre | | | 2020 | Visit | | [address] | | | | | | [address] | | | | | | [place] [address] | | | | | | [phone] | | | | | | | | +--------+ + + + + documented as of this encounter Visit Diagnoses Not on filedocumented in this encounter"
--- OUTSIDE RECORDS SUMMARY | ~2020-04-28 | XMS | Encounter Summary ---
Demographics + + + | Address | [address] | | | [place] [address] | + + + | Home Phone [...] [place] | | | | | [address] | | + + + + + Care Team Providers + +------+ + | Care Repair Order Clerk Name | Role | Phone | [...] + | 07/08/ | Telephone | [facility] | Frandy Teresa, | Other (post op call | | 2013 | | NEUROSURGERY [address] | DO [address] | ) | | | | [place] [facility] | [address] [place], [place] | | | | | [place], [place] | [id number] | | | | | [address] | | | | | | [phone] | | | +--------+ + + + [...] Aragon Cert MA - 07/08/2014 11:04 AM [facility] SHAYNE ARAGON documented in this [...] [address] | | | | | | [place] [address] | | | | | | [phone] | | | | | | | | +--------+ + + + + | 06/26/ | Office | Cardiology | Dora De La Torre | | | 2020 | Visit | | [address] | | | | | | [address] | | | | | | [place] [address] | | | | | | [phone] | | | | | | | | +--------+ + + + + documented as of this encounter Visit Diagnoses Not on filedocumented in this encounter"
--- OUTSIDE RECORDS SUMMARY | ~2020-04-28 | XMS | Encounter Summary ---
Demographics + + + | Address | [address] | | | [place] [address] | + + + | Home Phone [...] [place] | | | | | [address] | | + + + + + Care Team Providers + +------+ + | Care Produce Manager Name | Role | Phone | + +------+ + | Natalee Andersen NP | PCP | | + +------+ + Reason for Visit + + + | Reason | Comments | + + + | Follow-up, Office | Pre Op | | Visit | | + + + Encounter Details +--------+---------+ + + + | Date | Type | Department | Care Team | Description | +--------+---------+ + + + | 06/12/ | Office | [facility] | Chris Nicole, | Spondylisthesis | | 2013 | Visit | NEUROSURGERY [address] | PA-C [address] | (Primary Dx); | | | | [address] | [place], [place] | Radiculopathy of | | | | [place], [place] | [address] | leg; Lumbar spine | | | | [address] | | instability; Lumbar | | | | [phone] | | spondylosis; | | | | | | Foraminal stenosis | | | | | | of lumbosacral | | | | | | region | +--------+---------+ + + + Social History [...] + + + | Blood Pressure | 128/74 | 06/12/2014 3:23 PM | | | | | PDT | | + + + + + | Pulse | 71 | 06/12/2014 3:23 PM | | | | | PDT | | + + + + + | Temperature | - | - | | + + + + + | Respiratory Rate | 17 | 06/12/2014 3:23 PM | | | | | PDT | | + + + + + | Oxygen Saturation | - | - | | + + + + + | Inhaled Oxygen | - | - | | | Concentration | | | | + + + + + | Weight | 137.4 kg (303 lb) | 06/12/2014 3:23 PM | | | | | PDT | | + + + + + | Height | 170.2 cm (5' 7") | 06/12/2014 3:23 PM | | | | | PDT | | + + + + + | Body Mass Index | 47.46 | 06/12/2014 3:23 PM | | | | | PDT | | + + + + + documented in this encounter Patient Instructions Patient Instructions Alli Cruz PA - 06/12/2014 2:59 PM PDTPlease don't take any a nti inflammatories within 5 days of surgery. This will include Ibuprofen, Aspirin, Aleve, Ad blanca, Naproxen, and Motrin. You can take your normal morning AM medications with a small sip of water the day of surgery. Also don't take your Glucophage (Metformin) the morning of surg destinee. documented in this encounter Progress Notes Alli Cruz PA - 06/12/2014 2:57 PM PDTFormatting of this note might be different f rom the original. ZANE Castillo [address] [facility] [place], [place] [address] FAX: NEUROSURGERY HISTORY AND PHYSICAL EXAMINATION CHIEF [...] Take 15 mg by mouth nightl y. [place]-3 Fatty Acids (FISH OIL CONCENTRATE) 1000 MG [...] has no apparent deficits with short or ocean transportation intermediary memory. CRANIAL NERVES: II: Acuity is intact. [...] Intrinsics 5 5 Ulnar Intrinsics 5 5 Cart Pusher Strength 5 5 Hip Flexion 5 4* [...] prior to presenting for surgery. I spent 30 minutes visiting with Cindy Arndt today with the majority of time spent counselling the patient on her diagnosis, options for her care, and coordinating her care. ELECTRONICALLY SIGNED BY: ZANE Castillo, 06/12/2014 14:57 documented in this encounter Plan of Treatment [...] [address] | | | | | | [place] [address] | | | | | | [phone] | | | | | | | | +--------+ + + + + | 06/26/ | Office | Cardiology | Dora De La Torre | | | 2019 | Visit | | CAROLINE Mendez [address] | | | | | | [address] | | | | | | [facility] [place] [address] | | | | | | [phone] | | | | | | | | +--------+ + + + + documented as of this encounter Visit Diagnoses + + | Diagnosis | + + | Spondylisthesis - Primary Congenital spondylolisthesis | + + | Radiculopathy of leg Thoracic or lumbosacral neuritis or radiculitis, unspecified | + + | Lumbar spine instability | + + | Lumbar spondylosis Lumbosacral spondylosis without myelopathy | + + | Foraminal stenosis of lumbosacral region Spinal stenosis, lumbar region, without | | neurogenic claudication | + + documented in this encounter
--- OUTSIDE RECORDS SUMMARY | ~2020-04-28 | XMS | Encounter Summary ---
Demographics + + + | Address | [address] | | | [place] [address] | + + + | Home Phone | | + + + | Preferred Language | Unknown | + + + | Marital Status | Single | + + + | Islam Affiliation | Unknown | + + + [...] [place] | | | | | [address] | | + + + + + Care Team Providers + +------+ + | Care Elastic Cutter Name | Role | Phone | [...] | Transcriptions | + + | Interface, Supervisor Tellers In - 10/24/2006 3:09 AM PST | | [facility] | | Road [place], [place] [address] [place] | | [facility] HospitalOPERATION RECORDMed Rec No.: [id number] Date: | [...]
--- OUTSIDE RECORDS SUMMARY | ~2020-04-28 | XMS | Encounter Summary ---
Demographics + + + | Address | [address] | | | [place] [address] | + + + | Home Phone [...] [place] | | | | | [address] | | + + + + + Care Team Providers + +------+ + | Care Waitstaff Captain Name | Role | Phone | [...] + + | 08/20/ | Documentati | [facility] | Katharine Moncada, | Other (urgent | | 2019 | on | CARDIOLOGY [place] | Technologist | report) | | | | [address] | | | | | | [place] | | | | | | [address] | | | | | | [phone] | | | +--------+ + + + [...] | 2019 | visit | | CAROLINE [address]dez [address] | | | | | | [address] | | | | | | [place] [address] | | | | | | [phone] | | | | | | | | +--------+ + + + + | 06/26/ | Office | Cardiology | Dora De La Torre | | | 2020 | Visit | | [address]INE Mendez [address] | | | | | | [address] | | | | | | [place] [address] | | | | | | [phone] | | | | | | | | +--------+ + + + + documented as of this encounter Visit Diagnoses Not on filedocumented in this encounter"
--- OUTSIDE RECORDS SUMMARY | ~2020-04-28 | XMS | Encounter Summary ---
Demographics + + + | Address | [address] | | | [place] [address] | + + + | Home Phone [...] [place] | | | | | [address] | | + + + + + Care Team Providers + +------+ + | Care Coating Manager Name | Role | Phone | + +------+ + | Hari Samson DO | PCP | | + +------+ + Encounter Details +--------+ + + + + | Date | Type | Department | Care Team | Description | +--------+ + + + + | 06/12/ | Hospital | [facility] | Frandy Teresa, | No Show | | 2014 | Encounter | MED CTR | DO [address] | | | | | ELECTRODIAGNOSTICS | [address] [place], [place] | | | | | [address] | [address] | | | | | [place] [address] | | | | | | [phone] | | | +--------+ + + + [...] | | | | | [place] [address] | | | | | | [phone] | | | | | | | | +--------+ + + + + | 06/26/ | Office | Cardiology | Dora De La Torre | | | 2020 | Visit | | [address] Mendez [address] | | | | | | [address] [address] | | | | | | [place] [address] | | | | | | [phone] | | | | | | | | +--------+ + + + + documented as of this encounter Visit Diagnoses Not on filedocumented in this encounter"
--- OUTSIDE RECORDS SUMMARY | ~2020-04-28 | XMS | Encounter Summary ---
Demographics + + + | Address | [address] | | | [place] [address] | + + + | Home Phone [...] [place], [place] | | | | | [address] | | + + + + + Care Team Providers + +------+ + | Care Photoengraving Retoucher Name | Role | Phone | + +------+ + PCP | Unavailable | + +------+ + Encounter Details +--------+ + + + + | Date | Type | Department | Care Team | Description | +--------+ + + + + | 02/02/ | Hospital | [facility] | | | | 1997 | Encounter | MED CTR EMERGENCY | | | | | | [address] | | | | | | [place] | | | | | | [address] | | | | | | [phone] | | | +--------+ + + + [...] | | | | | [place] [address] | | | | | | [phone] | | | | | | | | +--------+ + + + + | 06/26/ | Office | Cardiology | Dora De La Torre | | | 2020 | Visit | | [address]endez [address] | | | | | | [address] | | | | | | [place] [address] | | | | | | [phone] | | | | | | | | +--------+ + + + + documented as of this encounter Visit Diagnoses Not on filedocumented in this encounter"
--- OUTSIDE RECORDS SUMMARY | ~2020-04-28 | XMS | Encounter Summary ---
Demographics + + + | Address | [address] | | | [place] [address] | + + + | Home Phone [...] [place], [place] | | | | | [address] | | + + + + + Care Team Providers + +------+ + | Care Doorperson Name | Role | Phone | + +------+ + PCP | Unavailable | + +------+ + Encounter Details +--------+ + + + + | Date | Type | Department | Care Team | Description | +--------+ + + + + | 07/23/ | Hospital | [facility] | | | | 1992 - | Encounter | MED CTR GENERIC PSY | | | | | | CONV DEPT [address] | | | | 07/28/ | | [place], | | | | 1992 | | [place] [address] | | | | | | [phone] | | | +--------+ + + + [...] [address] | | | | | | [place] [address] | | | | | | [phone] | | | | | | | | +--------+ + + + + | 06/26/ | Office | Cardiology | Dora De La Torre | | | 2019 | Visit | | [address] | | | | | | [address] | | | | | | [place] [address] | | | | | | [phone] | | | | | | | | +--------+ + + + + documented as of this encounter Visit Diagnoses Not on filedocumented in this encounter"
--- OUTSIDE RECORDS SUMMARY | ~2020-04-28 | XMS | Encounter Summary ---
Demographics + + + | Address | [address] | | | [place] [address] | + + + | Home Phone [...] [place] | | | | | [address] | | + + + + + Care Team Providers + +------+ + | Care Guitar Maker Name | Role | Phone | [...] + + | 02/05/ | Telephone | [facility] | Ashley Chávez | Other (Patient | | 2020 | | CARDIOLOGY [place] Abad, Medical Housekeeper | ) | | | | [address] | | | | | | [place] | | | | | | [address] | | | | | | [phone] | | | +--------+ + + + [...] t week . elephone Enco Ashley Wong, Medical Housekeeper - 02/06/2020 2:53 PM PDTPatient states that [...] advise. Thank you! (sent to Dora Mendez) JDW:[email or web address]. doc umented in this encounter Plan of [...] [address] | | | | | | [place] [address] | | | | | | [phone] | | | | | | | | +--------+ + + + + | 06/26/ | Office | Cardiology | Dora De La Torre | | | 2019 | Visit | | [address]OL[address] Mendez [address] | | | | | | [address] | | | | | | [facility] [place] [address] | | | | | | [phone] | | | | | | | | +--------+ + + + + documented as of this encounter Visit Diagnoses Not on filedocumented in this encounter
--- OUTSIDE RECORDS SUMMARY | ~2020-04-28 | XMS | Encounter Summary ---
Demographics + + + | Address | [address] | | | [place] [address] | + + + | Home Phone [...] [place] | | | | | [address] | | + + + + + Care Team Providers + +------+ + | Care Principal Data Architect Name | Role | Phone | [...] + + | 08/20/ | Documentati | [facility] | Katharine Moncada, | Other (urgent | | 2019 | on | CARDIOLOGY [place] | Technologist | report) | | | | [address] | | | | | | [place] | | | | | | [address] | | | | | | [phone] | | | +--------+ + + + [...] | | | | | [place] [address] | | | | | | [phone] | | | | | | | | +--------+ + + + + | 06/26/ | Office | Cardiology | Dora De La Torre | | | 2020 | Visit | | [address] | | | | | | [address] | | | | | | [place] [address] | | | | | | [phone] | | | | | | | | +--------+ + + + + documented as of this encounter Visit Diagnoses Not on filedocumented in this encounter"
--- OUTSIDE RECORDS SUMMARY | ~2020-04-28 | XMS | Encounter Summary ---
Demographics + + + | Address | [address] | | | [place] [address] | + + + | Home Phone [...] [place], [place] | | | | | [address] | | + + + + + Care Team Providers + +------+ + | Care Vice President Quality Name | Role | Phone | + +------+ + PCP | Unavailable | + +------+ + Encounter Details +--------+ + + + + | Date | Type | Department | Care Team | Description | +--------+ + + + + | 06/19/ | Hospital | [facility] | | | | 1991 - | Encounter | MED CTR GENERIC PSY | | | | | | CONV DEPT [address] | | | | 06/24/ | | [place] [address], | | | | 1991 | | [place] [address] | | | | | | [phone] | | | +--------+ + + + [...] [address] | | | | | | [place] [address] | | | | | | [phone] | | | | | | | | +--------+ + + + + | 06/26/ | Office | Cardiology | Dora De La Torre | | | 2019 | Visit | | [address] Mendez [address] | | | | | | [address] | | | | | | [place] [address] | | | | | | [phone] | | | | | | | | +--------+ + + + + documented as of this encounter Visit Diagnoses Not on filedocumented in this encounter"
--- OUTSIDE RECORDS SUMMARY | ~2020-04-28 | XMS | Encounter Summary ---
Demographics + + + | Address | [address] | | | [place] [address] | + + + | Home Phone [...] | [facility] | | | and [place] | + [...] [place] | | | | | [address] | | + + + + + Care Team Providers + +------+ + | Care Child Support Specialist Name | Role | Phone | [...] + + | 08/15/ | Documentati | [facility] | Katharine Moncada, | Other (urgent | | 2019 | on | CARDIOLOGY [place] | Technologist | report) | | | | [address] | | | | | | [place] | | | | | | [address] | | | | | | [phone] | | | +--------+ + + + [...] | | | | | [place] [address] | | | | | | [phone] | | | | | | | | +--------+ + + + + | 06/26/ | Office | Cardiology | Dora De La Torre | | | 2020 | Visit | | [address] Mendez [address] | | | | | | [address] | | | | | | [place] [address] | | | | | | [phone] | | | | | | | | +--------+ + + + + documented as of this encounter Visit Diagnoses Not on filedocumented in this encounter"
--- OUTSIDE RECORDS SUMMARY | ~2020-04-28 | XMS | Encounter Summary ---
Demographics + + + | Address | [address] | | | [place] [address] | + + + | Home Phone | | + + + | Preferred Language | Unknown | + + + | Marital Status | Single | + + + | Baptist Affiliation | Unknown | + + + | Race | White | + + + | Ethnic Group | Not or | + + + Author + + + | Author | [facility] | + + + | Organization | [facility] | + + + | Address | Unknown | + + + | Phone | Unavailable | + + + Support + + + + + | Name | Relationship | Address | Phone | + + + + + | Kelsy Bautista | ECON | [address] | | | | | [place] | | | | | [address] | | + + + + + Care Team Providers + +------+ + | Care Customs Appraiser Name | Role | Phone | + [...] | | | | | | [place] [address] | | | | | | [phone] | | | | | | | [...] in | | | | | | [place] with a | | | | | [...] [facility] | | | | | | Laboratory, [place], | | | | | | [place], delivered | | | | | | [...] by | | | | | | [id number]-Eih-Q: | | | | | | Increased [...] istryMHC-1: | | | | | | CnfgzktuTZ20 stain | | | | | | [...] | + + + + + | [facility] | [address] | [place] [address] | | | PATHOLOGY | [place] | | | + + + + + documented in this encounter Visit Diagnoses Not on filedocumented in this encounter
--- OUTSIDE RECORDS SUMMARY | ~2020-04-28 | XMS | Encounter Summary ---
Demographics + + + | Address | [address] | | | [place] [address] | + + + | Home Phone [...] [place] | | | | | [address] | | + + + + + Care Team Providers + +------+ + | Care Correctional Security Officer Name | Role | Phone | [...] | | | | | Procedures | HAND TAP[address] | [address] | | | | | ME OFFICE | | [address] | | | | | CONSULTATION | [address] | [place] | | | | | NEW/ESTAB | [facility], | [address] Phone: | | | | | PATIENT [address] | [place] [address] | [phone] | | | | | MIN | Phone: | Fax: | | | | | | [phone] | [phone] | | | | | | Fax: | | | | | | | [phone] | | +--------+--------+ + + + + Encounter Details +--------+---------+ + + + | Date | Type | Department | Care Team | Description | +--------+---------+ + + + | 05/02/ | Office | [facility] | Frandy Teresa, | Spondylolisthesis of | | 2013 | Visit | NEUROSURGERY [address] | DO [address] | lumbar region | | | | [address] | [address] [place], [place] | (Primary Dx); Lumbar | | | | [place], [place] | [id number] | stenosis; Lumbar | | | | [address] | | radicular pain; | | | | [phone] | | Lumbago | +--------+---------+ + + [...] m the original. Frandy Teresa DO [address] [facility] [address] [place], [place] [id number] FAX: NEUROSURGERY HISTORY AND PHYSICAL EXAMINATION CHIEF [...] Take 15 mg by mouth nightl y. [place]-3 Fatty Acids (FISH OIL CONCENTRATE) 1000 MG [...] has no apparent deficits with short or striper memory. CRANIAL NERVES: II: Acuity is intact. [...] Intrinsics 5 5 Ulnar Intrinsics 5 5 Manager Industrial Strength 5 5 Hip Flexion 5 4* [...] encounter Miscellaneous Notes Miscellaneous - [facility] - 05/02/2014 12:00 AM PDT iscellaneous - [facility] - 05/02/2014 12:00 AM PDTEle ctronically signed by [facility] at 05/08/2014 8:56 AM PDTdocumented in [...] [address] | | | | | | [place] [address] | | | | | | [phone] | | | | | | | | +--------+ + + + + | 06/26/ | Office | Cardiology | Dora De La Torre | | | 2019 | Visit | | CAROLINE Mendez [address] | | | | | | [address] | | | | | | [place] [address] | | | | | | [phone] | | | | | | | [...]
--- OUTSIDE RECORDS SUMMARY | ~2020-04-28 | XMS | Encounter Summary ---
Demographics + + + | Address | [address] | | | [place] [address] | + + + | Home Phone [...] [place] | | | | | [address] | | + + + + + Care Team Providers + +------+ + | Care 3D Designer Name | Role | Phone | [...] | 01/02/ | Telephone | [facility] | Frandy Teresa, | Other (6m x-ray ) | | 2015 | | NEUROSURGERY [address] | DO [address] | | | | | [address] | [address] [place], [place] | | | | | [place], [place] | [id number] | | | | | [address] | | | | | | [phone] | | | +--------+ + + + [...] for review. The order was faxed to [facility] today. She will let us know when [...] [address] | | | | | | [place] [address] | | | | | | [phone] | | | | | | | | +--------+ + + + + | 06/26/ | Office | Cardiology | Dora De La Torre | | | 2019 | Visit | | [address] Mendez [address] | | | | | | [address] | | | | | | [place] [address] | | | | | | [phone] | | | | | | | | +--------+ + + + + documented as of this encounter Visit Diagnoses Not on filedocumented in this encounter"
--- OUTSIDE RECORDS SUMMARY | ~2020-04-28 | XMS | Encounter Summary ---
Demographics + + + | Address | [address] | | | [place] [address] | + + + | Home Phone [...] [place], [place] | | | | | [address] | | + + + + + Care Team Providers + +------+ + | Care Traveling Repair Accountant Name | Role | Phone | + [...] | | | | | [place] [address] | | | | | | [phone] | | | +--------+ + + + [...] | | | | | [place] [address] | | | | | | [phone] | | | | | | | | +--------+ + + + + | 06/26/ | Office | Cardiology | Dora De La Torre | | | 2019 | Visit | | [address] Mendez [address] | | | | | | [address] | | | | | | [place] [address] | | | | | | [phone] | | | | | | | | +--------+ + + + + documented as of this encounter Visit Diagnoses Not on filedocumented in this encounter"
--- OUTSIDE RECORDS SUMMARY | ~2020-04-28 | XMS | Encounter Summary ---
Demographics + + + | Address | [address] | | | [place] [address] | + + + | Home Phone [...] [place], [place] | | | | | [address] | | + + + + + Care Team Providers + +------+ + | Care Vehicle Insurance Agent Name | Role | Phone | + +------+ + PCP | Unavailable | + +------+ + Encounter Details +--------+ + + + + | Date | Type | Department | Care Team | Description | +--------+ + + + + | 02/24/ | Hospital | [facility] | | | | 1997 - | Encounter | MED CTR GENERIC PSY | | | | | | CONV DEPT [address] | | | | 02/26/ | | [place], | | | | 1997 | | [place] [address] | | | | | | [phone] | | | +--------+ + + + [...] [address] | | | | | | [place] [address] | | | | | | [phone] | | | | | | | | +--------+ + + + + | 06/26/ | Office | Cardiology | Dora De La Torre | | | 2019 | Visit | | [address] Mendez [address] | | | | | | [address] | | | | | | [place] [address] | | | | | | [phone] | | | | | | | | +--------+ + + + + documented as of this encounter Visit Diagnoses Not on filedocumented in this encounter"
--- OUTSIDE RECORDS SUMMARY | ~2020-04-28 | XMS | Clinical Summary ---
Demographics + + + | Address | [address] | | | [place] [address] | + + + | Home Phone [...] [place] | | | | | [address] | | + + + + + Care Team Providers + +------+ + | Care Car Sweeper Name | Role | Phone | + [...] | | | | e | | ([employer] VERIO FLEX | | | | | [...] | | | | | | | davis) | + + + +---------+------+------+-------+ Active Problems [...] A-fib | | | | | | ([facility]); Mild | | | | | | hyperlipidemia; | | | | | | Benign essential | | | | | | HTN; Poorly | | | | | | controlled type 2 | | | | | | diabetes mellitus | | | | | | ([facility]); Syncope, | | | | | | [...] | | | | | | type ([facility]); Rapid | | | | | | palpitations; | | | | | | Obstructive sleep | | | | | | apnea syndrome; | | | | | | Psychophysiological | | | | | | insomnia | +--------+ + + + + | 04/03/ | Office | Cardiology | Desiree Peterson DO | Left bundle [...] | | | | | obesity) ([facility]); | | | | | | History of atrial | | | | | | fibrillation; | | | | | | History of sleep | | | | | | apnea | +--------+ + + + + | 02/13/ | Office | Cardiology | Dora De La Torre | History of atrial | | 2019 | Visit | | CAROLINE Mendez | fibrillation | | | | | | (Primary Dx); New | | | | | | onset left bundle | | | | | | branch block (LBBB); | | | | | | Benign essential | | | | | | HTN; History of | | [...] | | | | | obesity) ([facility]) | +--------+ + + + + | 02/06/ | Telephone | Cardiology | Dora De La Torre | Patient Concerns | | 2019 | | | CAROLINE Mendez | | +--------+ + + + + | 02/05/ | Telephone | Cardiology | Ashley Chávez | Other (Patient | | 2019 | | | Pollo, Fashion Supervisor | problems. ) | +--------+ + + + + from [...] | +--------+ + + + + | 08/06/ | Procedure | Cardiology | Dora De La Torre | | | 2019 | visit | | [address] | | | | | | [address] | | | | | | [place] [address] | | | | | | [phone] | | | | | | | | +--------+ + + + + | 06/26/ | Office | Cardiology | Dora De La Torre | | | 2019 | Visit | | [address] | | | | | | [address] | | | | | | [place] [address] | | | | | | [phone] | | | | | | | [...] | [employer] - | | 04/02/ | [id number] | | 5ccImplanted: Qty: 1 on | | Spine | MEDT | | 2019 | | | 07/02/2014 by Frandy Teresa | | Lumbar | | | | /[id number] | | A, DO at [facility] | | | | | | 6-020 | | [facility] | | | | | | / | + +------+--------+ +--------+--------+--------+ | Graft Infuse Bone Kit Xxs - | | N/A: | SOFAMOR | | 01/21/ | [id number] | | [id number]: Qty: 1 on | | Spine | DANEK - DIV | | 2015 | 0 / | | 07/02/2014 by Frandy Teresa | | Lumbar | [employer] | | | /[id number] | | A, DO at [facility] | | | - SFDK | | | 06AAH | | [facility] | | | | | | | + +------+--------+ +--------+--------+--------+ | Imp Spn Spcr Cpstn 8x26mm - | | N/A: | SOFAMOR | | 01/11/ | [id number] | | [id number]: Qty: 1 on | | Spine | DANEK - DIV | | 2021 | 6 / | | 07/02/2014 by Frandy Teresa | | Lumbar | [employer] | | | /[id number] | | DO Ronak at [facility] | | | - SFDK | | | 928 | | [facility] | | | | | | | + +------+--------+ +--------+--------+--------+ | Set Scrw Ns G5 Brk Off Ti | | N/A: | SOFAMOR | | | [id number] | | 4.75 - [id number]: | | Spine | DANEK - DIV | | | 0 / / | | Qty: 4 on 07/02/2014 by | | Lumbar | [employer] | | | | | Frandy Teresa DO at [facility] | | | - SFDK | | | | | [facility] | | | | | | | | [facility] | | | | | | | + +------+--------+ +--------+--------+--------+ | RodImplanted: Qty: 1 on | | N/A: | | | | [id number] | | 07/02/2014 by Frandy Teresa | | Spine | | | | 540 / | | A, DO at [facility] | | Lumbar | | | | / | | [facility] | | | | | | | + +------+--------+ +--------+--------+--------+ | RodImplanted: Qty: 1 on | | N/A: | MEDTROL - | | | [id number] | | 07/02/2014 by Frandy Teresa | | Spine | MDTR | | | 545 / | | A, DO at [facility] | | Lumbar | | | | / | | [facility] | | | | | | | + +------+--------+ +--------+--------+--------+ | Screw 7.5x50mm Sextant - | | N/A: | [employer] - | | | [id number] | | [id number]: Qty: 1 on | | Spine | MEDT | | | [id number] | | 07/02/2014 by Frandy Teresa | | Lumbar | | | | / / | | A, DO at [facility] | | | | | | | | [facility] | | | | | | | + +------+--------+ +--------+--------+--------+ | Cannulated ScrewImplanted: | | N/A: | MEDTROL - | | | [id number] | | Qty: 1 on 07/02/2014 by | | Spine | MDTR | | | [id number] | | Frandy Teresa DO at [facility] | | Lumbar | | | | / / | | [facility] | | | | | | | | [facility]ENTER | | | | | | | + +------+--------+ +--------+--------+--------+ | Cannulated ScrewImplanted: | | N/A: | [employer] - | | | [id number] | | Qty: 1 on 07/02/2014 by | | Spine | MEDT | | | [id number] | | Frandy Teresa DO at [facility] | | Lumbar | | | | / / | | [facility] | | | | | | [...] | | | | | obesity) ([facility]) | | + +--------+ + + + | ECHO-EXTERNAL SCAN | | 02/07/2020 | | Results for this | | | | 12:00 AM | | procedure are in the | | | | PDT | | results section. | + +--------+ + + + from Last 3 Months Results ECG 12 lead (04/03/2020 10:23 AM PDT)Only the most recent of 2 results within the time maricruz od is included. + + + + + + | [...] NNEKA | | | | | | DESIREE [...] | | | + +---------+ + + ECHO-EXTERNAL SCAN (02/07/2020 12:00 AM PDT) + + + | [...] +--------+ +---------+--------+ | MEDICARE | MEDICA | [id number] | 02/22/20 | [phone] | | Medica | | | RE | | 09-Pre | 5 | | re | | | PART A | | sent | | | | | | AND B | | | | | | + +--------+ +--------+ +---------+--------+ | MEDICARE | MEDICA | [id number] | 02/22/20 | [phone] | | Medica [...] [place] | | | 1 (Home) | [address] | + +--------+ +--------+ + + | Cindy Arndt | Person | Self | [birth year] | [address] | | | al/Fam | | 1955 | [phone] | [address] [place], [place] | | | [place] | | | 1 (Home) | [address] | + +--------+ +--------+ + + Advance Directives + + + + + | Type | Date Recorded | Patient | Explanation | | | | Police Radio Dispatcher | | + + + + + | Power of | | | | | Parts Counterperson | | | | + + + [...]
--- OUTSIDE RECORDS SUMMARY | ~2020-04-28 | XMS | Encounter Summary ---
Demographics + + + | Address | [address] | | | [place] [address] | + + + | Home Phone [...] [place] | | | | | [address] | | + + + + + Care Team Providers + +------+ + | Care Health Care Liaison Name | Role | Phone | + [...] | 07/15/ | Telephone | [facility] | Russell Alfaro PA | Other | | 2015 | | SLEEP DISORDER [address] | [address] | | | | | [place] | [address] [place] [address] | | | | | [place] [address] | [address] | | | | | [phone] | | | +--------+ + + + [...] Russell Alfaro PA - 07/15/2016 1:34 PM PDTPat was last seen in our [facility]2015. He did not [...] PA-C eleph one Encounter - Gail Cadet, Rabbit Fancier - 07/15/2016 8:37 AM PDTCalled to resched ule patient's no show appointment unable to contact all numbers are disconnected. Electronic ally signed by Gail Cadet Rabbit Fancier at 07/15/2016 8:37 AM PDTdocumented in this [...] [address] | | | | | | [place] [address] | | | | | | [phone] | | | | | | | | +--------+ + + + + | 06/26/ | Office | Cardiology | Dora De La Torre | | | 2019 | Visit | | [address] | | | | | | [address] | | | | | | [place] [address] | | | | | | [phone] | | | | | | | | +--------+ + + + + documented as of this encounter Visit Diagnoses Not on filedocumented in this encounter"
--- OUTSIDE RECORDS SUMMARY | ~2020-04-28 | XMS | Encounter Summary ---
Demographics + + + | Address | [address] | | | [place] [address] | + + + | Home Phone [...] [place] | | | | | [address] | | + + + + + Care Team Providers + +------+ + | Care Front Man Name | Role | Phone | [...] | | | | | pain, | [place], [place] | | | | | | bilateral | [address] | | | | | | Degenerative | Phone: | | | | | | disc | [phone] | | | | | | disease, | Fax: | | | | | | lumbar | [phone] | | | | | | Spinal [...] [address] | [address] [place], [place] | (Primary Dx); Knee | | | | [place] | [address] | pain, bilateral; | | | | [address] | | DEGENERATIVE DISC | | | | [phone] | | DISEASE, LUMBAR | | | [...] | | | | | [place] [address] | | | | | | [phone] | | | | | | | | +--------+ + + + + | 06/26/ | Office | Cardiology | Dora De La Torre | | | 2020 | Visit | | [address] | | | | | | [address] | | | | | | [place] [address] | | | | | | [phone] | | | | | | | [...]
--- OUTSIDE RECORDS SUMMARY | ~2020-04-28 | XMS | Encounter Summary ---
Demographics + + + | Address | [address] | | | [place] [address] | + + + | Home Phone [...] [place] | | | | | [address] | | + + + + + Care Team Providers + +------+ + | Care Biologist Aide Name | Role | Phone | [...] + + | 02/06/ | Telephone | [facility] | Roxannmiguel ángelDora | Patient Concerns | | 2020 | | CARDIOLOGY [place] | [address] | | | | | [address] | [address] | | | | | [address] | [place] [address] | | | | | [place] | [phone] | | | | | [address] | | | | | | [phone] | | | +--------+ + + + [...] [address] | | | | | | [place] [address] | | | | | | [phone] | | | | | | | | +--------+ + + + + | 06/26/ | Office | Cardiology | Dora De La Torre | | | 2019 | Visit | | [address] | | | | | | [address] | | | | | | [place] [address] | | | | | | [phone] | | | | | | | | +--------+ + + + + documented as of this encounter Visit Diagnoses Not on filedocumented in this encounter"
--- OUTSIDE RECORDS SUMMARY | ~2020-04-28 | XMS | Encounter Summary ---
Demographics + + + | Address | [address] | | | [place] [address] | + + + | Home Phone [...] [place] | | | | | [address] | | + + + + + Care Team Providers + +------+ + | Care Special Events Driver Name | Role | Phone | [...] | | | spondylolist | | [address] | | | | | hesis | | [place], | | | | | Spinal | | [place] [address] | | | | | stenosis, | | Phone: | | | | | lumbar | | [phone] | | | | | region, | | Fax: | | | | | without | | [phone] | | | | | neurogenic | [...] | | | | | | [place] | | | | | | [...] | | | | | | [place] | | | | | | [...] | | | | | | [place] | | | | | | [...] | | | | | [address] | [address] [place] | | | | | [place] | [phone] | | | | | [address] | | | | | | [phone] | | | +--------+ + + + [...] Easy mask AW. DL times one with [facility] 3 easy view | | | 2 | Intubation | | | | 2 | | | | | 6 | | | +----+---+ + + | | 1 | AN Bite | | | | 2 | Block | | | | 2 | | | | | 7 | | | +----+---+ + + | | 1 | [place] | | | | 2 | 43-degrees | | | | 3 | | | | | 1 | | | +----+---+ + + | | 1 | [place] off | | | | 4 | [...] EVALUATION Cindy Arndt 58 y.o. female 1955 [id number] Procedure: Procedure(s):MIS L5-S1 TRANSFORAMINAL LUMBAR INTERBODY FUSION [...] by Zen Mccord MD 07/02/2014 14:55 [facility] nesthesia Preproc edure Evaluation - Zen Mccord MD - 07/02/2014 8:36 AM PDTFormatting of this note m ight be different from the original. ANESTHESIA PREANESTHESIA EVALUATION Cindy Arndt 58 y.o. female 1955 [id number] Scheduled procedure LAMINECTOMY PLIF/TLIF INSTRUMENTATION [184] - MIS L5-S1 TRANSFORAMINAL LUMBAR INTERBODY FUSION Medical history, anesthesia, medications, allergy histories reviewed. ECG reviewed. Labs reviewed. ROS / Med History Ane (+) PONV. NPO status verified. CV (+) hypertension.(-) CAD, past [place], CHF, congenital heart disease, pulmonary hypertension, p [...] [address] | | | | | | [place] [address] | | | | | | [phone] | | | | | | | | +--------+ + + + + | 06/26/ | Office | Cardiology | Dora De La Torre | | | 2019 | Visit | | [address] | | | | | | [address] | | | | | | [place] [address] | | | | | | [phone] | | | | | | | [...]
--- OUTSIDE RECORDS SUMMARY | ~2020-04-28 | XMS | Encounter Summary ---
Demographics + + + | Address | [address] | | | [place] [address] | + + + | Home Phone [...] [place], [place] | | | | | [address] | | + + + + + Care Team Providers + +------+ + | Care Heating And Air Conditioning Mechanic Name | Role | Phone | + +------+ + PCP | Unavailable | + +------+ + Encounter Details +--------+ + + + + | Date | Type | Department | Care Team | Description | +--------+ + + + + | 06/17/ | Hospital | [facility] | | | | 1991 - | Encounter | MED CTR GENERIC PSY | | | | | | CONV DEPT [address] | | | | 06/18/ | | [place], | | | | 1991 | | [place] [address] | | | | | | [phone] | | | +--------+ + + + [...] [address] | | | | | | [place] [address] | | | | | | [phone] | | | | | | | | +--------+ + + + + | 06/26/ | Office | Cardiology | Dora De La Torre | | | 2019 | Visit | | [address] | | | | | | [address] | | | | | | [place] [address] | | | | | | [phone] | | | | | | | | +--------+ + + + + documented as of this encounter Visit Diagnoses Not on filedocumented in this encounter"
--- OUTSIDE RECORDS SUMMARY | ~2020-04-28 | XMS | Encounter Summary ---
Demographics + + + | Address | [address] | | | [place] [address] | + + + | Home Phone [...] [place] | | | | | [address] | | + + + + + Care Team Providers + +------+ + | Care Television News Anchor Name | Role | Phone | + +------+ + | Natalee Andersen NP | PCP | | + +------+ + Encounter Details +--------+ + + + + | Date | Type | Department | Care Team | Description | +--------+ + + + + | 09/27/ | Hospital | [facility] | Frandy Teresa, | Lumbar spondylosis; | | 2013 | Encounter | MED CTR XRAY [address] | DO [address] | S/P lumbar fusion | | | | [place] | [address] [place], [place] | | | | | [place] [address] | [address] | | | | | [phone] | | | +--------+ + + + [...] [address] | | | | | | [place] [address] | | | | | | [phone] | | | | | | | | +--------+ + + + + | 06/26/ | Office | Cardiology | Dora De La Torre | | | 2019 | Visit | | [address] | | | | | | [address] | | | | | | [place] [address] | | | | | | [phone] | | | | | | | [...] + | MISCELLANEOUS LAB | | | [phone] | + +---------+ + + | MISCELANIOUS LAB | | | [phone] | + +---------+ + + documented in this encounter Visit Diagnoses + + | Diagnosis | + + | Lumbar spondylosis Lumbosacral spondylosis without myelopathy | + + | S/P lumbar fusion Arthrodesis status | + + documented in this encounter"
--- OUTSIDE RECORDS SUMMARY | ~2020-04-28 | XMS | Encounter Summary ---
Demographics + + + | Address | [address] | | | [place] [address] | + + + | Home Phone [...] [place] | | | | | [address] | | + + + + + Care Team Providers + +------+ + | Care Electric Motorman Name | Role | Phone | + [...] + + | 03/26/ | Telephone | [facility] | Thierry Fry | Medication Prior | | 2014 | | MEDICINE [address] [place] [address] | MD Lisa [address] | Authorization | | | | [employer], | [employer] [place] | (Dexilant 60Mg) | | | | [place] [address] | [address] | | | | | [phone] | | | +--------+ + + + [...] were not received I contacted insurance ID# [id number] This has been denied. The patient must try and fail 2 of the following Omeprazole Protonix Prevacid Nexium Please advise elepho ne Encounter - Saba Acosta Cert MA - 03/26/2015 1:32 PM PDTCalled and requested a prior authorization Requested for via fax from [employer] Prior auth medication Dexilant 60MgElectronically signed by [...] | | | | | [place] [address] | | | | | | [phone] | | | | | | | | +--------+ + + + + | 06/26/ | Office | Cardiology | Dora De La Torer | | | 2020 | Visit | | [address] | | | | | | [address] | | | | | | [place] [address] | | | | | | [phone] | | | | | | | | +--------+ + + + + documented as of this encounter Visit Diagnoses Not on filedocumented in this encounter"
--- OUTSIDE RECORDS SUMMARY | ~2020-04-28 | XMS | Encounter Summary ---
Demographics + + + | Address | [address] | | | [place] [address] | + + + | Home Phone [...] [place], [place] | | | | | [address] | | + + + + + Care Team Providers + +------+ + | Care Psych Specialist Name | Role | Phone | + +------+ + PCP | Unavailable | + +------+ + Encounter Details +--------+ + + + + | Date | Type | Department | Care Team | Description | +--------+ + + + + | 12/27/ | Hospital | [facility] | | | | 1997 - | Encounter | MED CTR GENERIC PSY | | | | | | CONV DEPT [address] | | | | 01/01/ | | [place], | | | | 1997 | | [place] [address] | | | | | | [phone] | | | +--------+ + + + [...] [address] | | | | | | [place] [address] | | | | | | [phone] | | | | | | | | +--------+ + + + + | 06/26/ | Office | Cardiology | Dora De La Torre | | | 2019 | Visit | | [address] | | | | | | [address] | | | | | | [place] [address] | | | | | | [phone] | | | | | | | | +--------+ + + + + documented as of this encounter Visit Diagnoses Not on filedocumented in this encounter"
--- OUTSIDE RECORDS SUMMARY | ~2020-04-28 | XMS | Encounter Summary ---
Demographics + + + | Address | [address] | | | [place] [address] | + + + | Home Phone [...] [place] | | | | | [address] | | + + + + + Care Team Providers + +------+ + | Care City Assessor Name | Role | Phone | + +------+ + | Natalee Andersen NP | PCP | | + +------+ + Encounter Details +--------+ + + + + | Date | Type | Department | Care Team | Description | +--------+ + + + + | 06/25/ | Hospital | [facility] | Latricia Feliciano | | | 2014 | Encounter | MED CTR ACUTE | D, PT [address] | | | | | PHYSICAL THERAPY | [place] | | | | | [address] | [address] | | | | | [place] [address] | | | | | | [phone] | | | +--------+ + + + [...] + + + +---------+ + + | Bradley-3 Fatty | Take 1,000 mg by | [...] | | | | | [place] [address] | | | | | | [phone] | | | | | | | | +--------+ + + + + | 06/26/ | Office | Cardiology | Dora De La Torre | | | 2020 | Visit | | [address] | | | | | | [address] | | | | | | [place] [address] | | | | | | [phone] | | | | | | | | +--------+ + + + + documented as of this encounter Visit Diagnoses Not on filedocumented in this encounter"
--- OUTSIDE RECORDS SUMMARY | ~2020-04-28 | XMS | Encounter Summary ---
Demographics + + + | Address | [address] | | | [place] [address] | + + + | Home Phone [...] [place] | | | | | [address] | | + + + + + Care Team Providers + +------+ + | Care Leveler Helper Name | Role | Phone | [...] [address] | [address] [place], [place] | Hypothyroidism; | | | | [place], [place] | [address] | GERD; BACK PAIN, | | | | [address] | | LUMBAR, WITH | | | | [phone] | | RADICULOPATHY; | | | | [...] | | | | | [place] [address] | | | | | | [phone] | | | | | | | | +--------+ + + + + | 06/26/ | Office | Cardiology | Dora De La Torre | | | 2020 | Visit | | [address] | | | | | | [address] | | | | | | [place] [address] | | | | | | [phone] | | | | | | | [...]
--- OUTSIDE RECORDS SUMMARY | ~2020-04-28 | XMS | Encounter Summary ---
Demographics + + + | Address | [address] | | | [place] [address] | + + + | Home Phone [...] [place] | | | | | [address] | | + + + + + Care Team Providers + +------+ + | Care Supervisor Customer Records Division Name | Role | Phone | + [...] | | | [address] | [place] [address] | | | | | [place] [address] | | | | | | [phone] | | | +--------+ + + + [...] [address] | | | | | | [place] [address] | | | | | | [phone] | | | | | | | | +--------+ + + + + | 06/26/ | Office | Cardiology | Dora De La Torre | | | 2019 | Visit | | [address] | | | | | | [address] | | | | | | [place] [address] | | | | | | [phone] | | | | | | | [...]
--- OUTSIDE RECORDS SUMMARY | ~2020-04-28 | XMS | Encounter Summary ---
Demographics + + + | Address | [address] | | | [place] [address] | + + + | Home Phone [...] [place] | | | | | [address] | | + + + + + Care Team Providers + +------+ + | Care Auxiliary Powerplant Operator Name | Role | Phone | [...] + | 07/19/ | Telephone | [facility] | Frandy Teresa, | Appointment | | 2013 | | NEUROSURGERY [address] | DO [address] | | | | | [address] | [address] [place], [place] | | | | | [place], [place] | [id number] | | | | | [address] | | | | | | [phone] | | | +--------+ + + + [...] Spivey - 07/22/2014 8:09 AM Nakia from [facility] called back this morning to isamar mcarthure that she spoke with the patient again regarding this appointment and the patient would be ok with rescheduling to a time the following week. She just didn't want to make the trip down here right after she got back home to [place]. Janes can be reached at [phone] ectronically signed by Tiffani Humphrey at 07/22/2014 8:11 AM PDTTelephone Encounter - Lashawn Metzger - 07/19/2014 12:56 PM PDTSuarlen from [facility] called to confirm Cindy' s appointment for [...] | | | | | [place] [address] | | | | | | [phone] | | | | | | | | +--------+ + + + + | 06/26/ | Office | Cardiology | Dora De La Torre | | | 2019 | Visit | | [address] | | | | | | [address] | | | | | | [place] [address] | | | | | | [phone] | | | | | | | | +--------+ + + + + documented as of this encounter Visit Diagnoses Not on filedocumented in this encounter"
--- OUTSIDE RECORDS SUMMARY | ~2020-04-28 | XMS | Encounter Summary ---
Demographics + + + | Address | [address] [address] [address] | | | [place] [address] | + + + | Home Phone | | + + + | Preferred Language | Unknown | + + + | Marital Status | Single | + + + | Adventist Affiliation | Unknown | + + + [...] [place] | | | | | [address] | | + + + + + Care Team Providers + +------+ + | Care Histologist Technologist Name | Role | Phone | [...] Clinic | | | | | | [facility], [address] | | | | | | [place], [place] | | | | | | [address] | | | | | | [phone] | | | +--------+ + + + [...] as of this encounter Progress Notes Interface, Frame Stripper And Crusher In - 12/11/2006 5:03 AM [place] [...]
--- OUTSIDE RECORDS SUMMARY | ~2020-04-28 | XMS | Encounter Summary ---
Demographics + + + | Address | [address] | | | [place] [address] | + + + | Home Phone [...] [place] | | | | | [address] | | + + + + + Care Team Providers + +------+ + | Care Strategic Communications Manager Name | Role | Phone | + +------+ + | Natalee Andersen NP | PCP | | + +------+ + Encounter Details +--------+ + + + + | Date | Type | Department | Care Team | Description | +--------+ + + + + | 07/06/ | Hospital | [facility] | Latricia Feliciano | | | 2014 | Encounter | MED CTR ACUTE | D, PT [address] | | | | | PHYSICAL THERAPY | NEFTALIE [place]E | | | | | [address] | [address] | | | | | [place] [address] | | | | | | [phone] | | | +--------+ + + + [...] + + + +---------+ + + | Headland-3 Fatty | Take 1,000 mg by | [...] [address]ANT[place] | | | | | | [place] [address] | | | | | | [phone] | | | | | | | | +--------+ + + + + | 06/26/ | Office | Cardiology | Dora De La Torre | | | 2020 | Visit | | [address] | | | | | | [place] | | | | | | [place] [address] | | | | | | [phone] | | | | | | | | +--------+ + + + + documented as of this encounter Visit Diagnoses Not on filedocumented in this encounter"
--- OUTSIDE RECORDS SUMMARY | ~2020-04-28 | XMS | Encounter Summary ---
Demographics + + + | Address | [address] | | | [place] [address] | + + + | Home Phone [...] [place], [place] | | | | | [address] | | + + + + + Care Team Providers + +------+ + | Care Fireworks Inspector Name | Role | Phone | + +------+ + PCP | Unavailable | + +------+ + Encounter Details +--------+ + + + + | Date | Type | Department | Care Team | Description | +--------+ + + + + | 12/27/ | Hospital | [facility] | | | | 1995 | Encounter | MED CTR LABORATORY | | | | | | [address] | | | | | | [place] | | | | | | [address] | | | | | | [phone] | | | +--------+ + + + [...] | | | | | [place] [address] | | | | | | [phone] | | | | | | | | +--------+ + + + + | 06/26/ | Office | Cardiology | Dora De La Torre | | | 2020 | Visit | | [address] | | | | | | [address] | | | | | | [place] [address] | | | | | | [phone] | | | | | | | | +--------+ + + + + documented as of this encounter Visit Diagnoses Not on filedocumented in this encounter"
--- OUTSIDE RECORDS SUMMARY | ~2020-04-28 | XMS | Encounter Summary ---
Demographics + + + | Address | [address] | | | [place] [address] | + + + | Home Phone [...] [place] | | | | | [address] | | + + + + + Care Team Providers + +------+ + | Care Wardrobe Consultant Name | Role | Phone | + +------+ + PCP | Unavailable | + +------+ + Encounter Details +--------+ + + + + | Date | Type | Department | Care Team | Description | +--------+ + + + + | 04/27/ | Hospital | [facility] | Sage Garza MD | | | 2001 | Encounter | HOSPITAL EMERGENCY | | | | | | CENTER [address] | [address] [place], [place] | | | | | | [address] | | | | | | [phone] | | | +--------+ + + + [...] [address] | | | | | | [place] | | | | | | [place] [address] | | | | | | [phone] | | | | | | | | +--------+ + + + + | 06/26/ | Office | Cardiology | Dora De La Torre | | | 2020 | Visit | | [address] | | | | | | [place] | | | | | | [place] [address] | | | | | | [phone] | | | | | | | | +--------+ + + + + documented as of this encounter Visit Diagnoses Not on filedocumented in this encounter"
--- OUTSIDE RECORDS SUMMARY | ~2020-04-28 | XMS | Encounter Summary ---
Demographics + + + | Address | [address] | | | [place] [address] | + + + | Home Phone | | + + + | Preferred Language | Unknown | + + + | Marital Status | Single | + + + | Taoist Affiliation | Unknown | + + + [...] [place] | | | | | [address] | | + + + + + Care Team Providers + +------+ + | Care Director Of Academic Name | Role | Phone | [...] | Transcriptions | + + | Interface, Childcare Teacher In - 11/04/2006 3:03 AM PST | | [address] | | [place], [place] [address] [facility] | | ClinicsOPERATION RECORDMed Rec [...] skin retractor was put in place. The [place] elevators wereused to separate the | | [...]
--- OUTSIDE RECORDS SUMMARY | ~2020-04-28 | XMS | Encounter Summary ---
Demographics + + + | Address | [address] | | | [place] [address] | + + + | Home Phone [...] [place] | | | | | [address] | | + + + + + Care Team Providers + +------+ + | Care Wood Miller Name | Role | Phone | + [...] Pending | | Radiology | Diagnoses | Peterson, | | | Review | | | Left bundle | DO Desiree | | | | | | branch | [address] | | | | | | block | [address] | | | | | | Procedures | [place] | | | | | | ECHO | [place], [place] | | | | | | Complete | [address] | | | | | | | Phone: | | | | | | | [phone] | | | | | | | Fax: | | | | | | | [phone] | | + +--------+ + + + + Reason for Visit + + + | Reason | Comments | + + + | Follow-up | 6 month | + + + Encounter Details +--------+---------+ + + + | Date | Type | Department | Care Team | Description | +--------+---------+ + + + | 04/03/ | Office | [facility] | Desiree Peterson DO | Left bundle branch | | 2020 | Visit | CARDIOLOGY [place] | [address] | block (Primary Dx); | | | | [address] | [place], [place] | Benign essential | | | | [address] | [address] | HTN; New onset left | | | | [place], [place] | | bundle branch block | | | | [address] | | (LBBB); Obesity, | | | | [phone] | | Class III, BMI | | | | | | 40-49.9 (morbid | | | | | | obesity) ([facility]); | | | | | | History [...] Peterson DO - 04/03/2020 10:20 AM PDT [facility] Cardiology Follow [...] rtake in exercise. She recently got a [employer] and has been walking him more regularly. 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 Blood Glucose Monitoring Suppl (Rocket FuelIO FLEX SYSTEM) w/Device KIT by Does not ap ply route. budesonide-formoterol (SYMBICORT) 160-4.5 MCG/ACT inhaler Inhale 2 puffs into the lungs 2 (two) times daily. Calcium Carbonate Antacid 1000 MG tablet Take 1,000 mg by mouth 3 (three) times daily. Cholecalciferol (VITAMIN D3) 73199 units CAPS Take by mouth once a [...] ALT 76, alkaline phosphatase 134. Labs: 10/20/2019:( [facility]) CBC: WBC 7.1, RBC 4.93, [...] | | | | | [place] [address] | | | | | | [phone] | | | | | | | | +--------+ + + + + | 06/26/ | Office | Cardiology | Dora De La Torre | | | 2020 | Visit | | [address] | | | | | | [place] | | | | | | [place] [address] | | | | | | [phone] | | | | | | | [...]
--- OUTSIDE RECORDS SUMMARY | ~2020-04-28 | XMS | Encounter Summary ---
Demographics + + + | Address | [address] | | | [place] [address] | + + + | Home Phone [...] [place], [place] | | | | | [address] | | + + + + + Care Team Providers + +------+ + | Care Office Chair Assembler Name | Role | Phone | + +------+ + PCP | Unavailable | + +------+ + Encounter Details +--------+ + + + + | Date | Type | Department | Care Team | Description | +--------+ + + + + | 05/23/ | Hospital | [facility] | [place], | | | 2011 | Encounter | MED CTR XRAY [address] | MD [address] | | | | | [place] | [place] | | | | | [place] [address] | [address] | | | | | [phone] | | | +--------+ + + + [...] + + + +---------+ + + | Murphys-3 Fatty | Take 1,000 mg by | [...] [place] | | | | | | [place] [address] | | | | | | [phone] | | | | | | | | +--------+ + + + + | 06/26/ | Office | Cardiology | Dora De La Torre | | | 2019 | Visit | | [address] | | | | | | [place] | | | | | | [place] [address] | | | | | | [phone] | | | | | | | [...] At | + + + | [facility] Diagnostic Imaging Department | [place] | | [address] | [facility] | | LUMBAR SPINE MR WITHOUT CONTRAST, [...] Transcribed Date/Time: | | | 05/23/2012 16:55 Tile Power Shear Operator: <Electronically Signed | | | by Adriano Anne MD> 05/23/12 6215 | | + + + + + | Procedure Note | + + | Juan, Rad Conversion - 11/30/2013 5:47 PM [facility] | | Diagnostic Imaging Department [address] [facility] | | LUMBAR SPINE MR WITHOUT CONTRAST, [...] 16:37 | |Transcribed Date/Time: 05/23/2012 16:55 | |Tile Power Shear Operator: | |<Electronically Signed by Adriano Anne MD> 05/23/12 1725 | + + + +---------+ + + | Performing | Address | City/State/Zipcode | Phone Number | | Organization | | | | + +---------+ + + | [place] | | | | | [facility] | | | | + +---------+ + + documented in this encounter Visit Diagnoses Not on filedocumented in this encounter"
--- OUTSIDE RECORDS SUMMARY | ~2020-04-28 | XMS | Encounter Summary ---
Demographics + + + | Address | [address] | | | [place] [address] | + + + | Home Phone [...] [place], [place] | | | | | [address] | | + + + + + Care Team Providers + +------+ + | Care Senior Operations Manager Name | Role | Phone | + +------+ + PCP | Unavailable | + +------+ + Encounter Details +--------+ + + + + | Date | Type | Department | Care Team | Description | +--------+ + + + + | 02/16/ | Hospital | [facility] | | | | 1994 | Encounter | MED CTR LABORATORY | | | | | | [address] | | | | | | [place] | | | | | | [address] | | | | | | [phone] | | | +--------+ + + + [...] | | | | | [place] [address] | | | | | | [phone] | | | | | | | | +--------+ + + + + | 06/26/ | Office | Cardiology | Dora De La Torre | | | 2020 | Visit | | [address] | | | | | | [address] [address] | | | | | | [place] [address] | | | | | | [phone] | | | | | | | | +--------+ + + + + documented as of this encounter Visit Diagnoses Not on filedocumented in this encounter"
--- OUTSIDE RECORDS SUMMARY | ~2020-04-28 | XMS | Encounter Summary ---
Demographics + + + | Address | [address] | | | [place] [address] | + + + | Home Phone [...] [place] | | | | | [address] | | + + + + + Care Team Providers + +------+ + | Care Electric Dolly Operator Name | Role | Phone | [...] + | 12/03/ | Refill | [facility] | Frandy Teresa, | Medication Refill | | 2014 | | NEUROSURGERY [address] | DO [address] | | | | | [facility] | [address] [place], [place] | | | | | [place], [place] | [id number] | | | | | [address] | | | | | | [phone] | | | +--------+--------+ + + + [...] Art Andersen NP Chart notes faxed to [phone] along with medication list. Sent request to [...] C[address] | | | | | | [place] [address] | | | | | | [phone] | | | | | | | | +--------+ + + + + | 06/26/ | Office | Cardiology | Dora De La Torre | | | 2019 | Visit | | [address] | | | | | | [address] [address] | | | | | | [place] [address] | | | | | | [phone] | | | | | | | | +--------+ + + + + documented as of this encounter Visit Diagnoses Not on filedocumented in this encounter"
--- OUTSIDE RECORDS SUMMARY | ~2020-04-28 | XMS | Encounter Summary ---
Demographics + + + | Address | [address] | | | [place] [address] | + + + | Home Phone [...] [place], [place] | | | | | [address] | | + + + + + Care Team Providers + +------+ + | Care Kitchen Food Server Name | Role | Phone | + +------+ + PCP | Unavailable | + +------+ + Encounter Details +--------+ + + + + | Date | Type | Department | Care Team | Description | +--------+ + + + + | 02/24/ | Hospital | [facility] | | | | 1997 | Encounter | MED CTR EMERGENCY | | | | | | [address] | | | | | | [place] | | | | | | [address] | | | | | | [phone] | | | +--------+ + + + [...] | | | | | [place] [address] | | | | | | [phone] | | | | | | | | +--------+ + + + + | 06/26/ | Office | Cardiology | Dora De La Torre | | | 2020 | Visit | | [address] | | | | | | [address] | | | | | | [place] [address] | | | | | | [phone] | | | | | | | | +--------+ + + + + documented as of this encounter Visit Diagnoses Not on filedocumented in this encounter"
--- OUTSIDE RECORDS SUMMARY | ~2020-04-28 | XMS | Encounter Summary ---
Demographics + + + | Address | [address] | | | [place] [address] | + + + | Home Phone [...] [place] | | | | | [address] | | + + + + + Care Team Providers + +------+ + | Care Social Work Administrator Name | Role | Phone | [...] | | | | | [address], | address | | | | | [address] [place] | | | | | | [place] [address] | | | | | | [phone] | | | +--------+ + + + [...] stroke work up she had done at [facility] was quite thorough and she did not [...] [place] | | | | | | [place] [address] | | | | | | [phone] | | | | | | | | +--------+ + + + + | 06/26/ | Office | Cardiology | Dora De La Torre | | | 2019 | Visit | | [address] | | | | | | [address] | | | | | | [place] [address] | | | | | | [phone] | | | | | | | | +--------+ + + + + documented as of this encounter Visit Diagnoses Not on filedocumented in this encounter"
--- OUTSIDE RECORDS SUMMARY | ~2020-04-28 | XMS | Encounter Summary ---
Demographics + + + | Address | [address] | | | [place] [address] | + + + | Home Phone [...] [place] | | | | | [address] | | + + + + + [...] + + | 12/17/ | Office | [facility] | Dora De La Torre | History of atrial | | 2020 | Visit | CARDIOLOGY [place] | [address] | fibrillation; Benign | | | | [address] | [place] | essential HTN; | | | | [address] | [place] [address] | History of | | | | [place], [place] | [phone] | hypothyroidism; | | | | [address] | | Stress | | | | [phone] | | hyperglycemia; | | | | | | History of sleep | | | | | | apnea; History of | | | | | | stroke; Obesity, | | | | | | Class III, BMI | | | | | | 40-49.9 (morbid | | | | | | obesity) ([facility]); Mild | | | | | | [...] of fatigue and shortness of breath. Her HSX2BE2 VASC score is 4 (stroke, HTN, gender) , and Dr. Peterson did not anticoagulate he r due to low incidence of atrial fib. Her current and previous testing and procedures are detailed below. She was seen in the emergency room on October 11, 2019 at [facility] and presented wi th paranoia feeling that knives were chasing her , so went to the emergency room so that she could feel safe and Had [facility] evaluation and discharged home Labs performed [...] 405 and disposition plan was [facility] by [facility], and she was to be started on Abilify. She was seen again in the emergency room on October 19 and , [id number] for sim ilar complaints with increased delusions, [...] She has previously seen Dr. Garland in [place], and different provider in [place] when lived over there. She reports she [...] thirst or hunger. Psychiatric/Behavioral: Bipolar/Schizophrenia. Tx'd by [facility] Vaccines: Current on flu vaccine: 2019 Current on pneumonia vaccine:PPSV 23 05/29/2013 Habits/Social : Denies history of smoking. Denies EtOH use. Denies recreational or illici t drug use. Exercises sporadically. Lives in [place] . Outpatient Medications Prior to Visit Medication [...] Take by mouth. Blood Glucose Monitoring Suppl (XOXO Kitchen VERIO FLEX SYSTEM) w/Device KIT by Does not ap ply route. budesonide-formoterol (SYMBICORT) 160-4.5 mcg/puff inhaler Inhale 2 puffs into the lung s 2 (two) times daily. calcium carbonate antacid (TUMS ULTRA 1000) 1000 MG CHEW Chew and swallow 1,000 mg 4 ti mes daily as needed. Cholecalciferol (VITAMIN D-3) 27633 units CAPS Take 50,000 Units by mouth [...] chest discomfort, patient unable to walk on [employer]. Resting EKG normal sinus rhythm, arrhythmias ventricular [...] nonspecific ST-T wave abnormality rate 82 bpm, SC 176 ms, QRS 80 ms, QTC 446 ms tracing personally reviewed by me EK12/17/2019: Sinus tachycardia, nonspecific ST wave abnormalities, rate 105 bpm, SC 196 ms, QRS 74 ms, QTC 430 ms, tracing personally reviewed by me, and compared to EKG performed in February 2019, rate is less well-controlled LABS Labs: 12/26/2018: ( [facility])CMP: Sodium 139, potassium 4.2, chloride 99, BUN 10, creatinine 0. 7, BNP 28. CBC: WBC 7.8, hemoglobin 14.3, hematocrit 42.7, platelets 214 Labs: 09/28/2019:( [facility]) CBC: WBC 7.8, hemoglobin 14.9, hematocrit 43.8, platelets 221. C MP: Sodium 132, potassium 4.2, chloride 95, AST 76, ALT 76, alk phos 134 Labs: 10/11/2019:( [facility]) CBC: WBC 6.7, RBC 4.97, hemoglobin 15.2, hematocrit 44.7, platel ets 200. CMP: Glucose 385, BUN 7, creatinine 0.62, GFR 97, sodium 131, potassium 4.1, chlor kelby 95, albumin 4.3, total bilirubin 0.6, AST 75, ALT 73, alk phos 144. Thyroid: TSH 4.27 Labs: 10/12/2020:( [facility]) CBC: WBC 7, RBC 4.93, hemoglobin 14.7, hematocrit 44.1, platele ts 186 normal UA CMP: Glucose 381, BUN 6, creatinine 0.63, GFR 95, sodium 133, potassium 3.8 , chloride 97, albumin 4.3, total bili 0.6, AST 62, ALT 75, alk phos 145 thyroid: TSH 3.07 Labs: 10/20/2019:( [facility]) CBC: WBC 7.1, RBC [...] her local pharmacy [facility]'s . I made no other changes to [...] of care purp ose [place] [facility]UC[facility] Cardiology 12/17/2019 docume nted in this [...] [address] | | | | | | [place] [address] | | | | | | [phone] | | | | | | | | +--------+ + + + + | 06/26/ | Office | Cardiology | Britt Dora | | | 2019 | Visit | | [address] | | | | | | [address] | | | | | | [place] [address] | | | | | | [phone] | | | | | | | [...] | | | | | | [place] ([id number]) on | | | | | | [...]
--- OUTSIDE RECORDS SUMMARY | ~2020-04-28 | XMS | Encounter Summary ---
Demographics + + + | Address | [address] | | | [place] [address] | + + + | Home Phone [...] [place], [place] | | | | | [address] | | + + + + + Care Team Providers + +------+ + | Care Client Relations Representative Name | Role | Phone | + +------+ + PCP | Unavailable | + +------+ + Encounter Details +--------+ + + + + | Date | Type | Department | Care Team | Description | +--------+ + + + + | 08/21/ | Hospital | [facility] | | | | 1996 | Encounter | MED CTR LABORATORY | | | | | | [address] | | | | | | [place] | | | | | | [address] | | | | | | [phone] | | | +--------+ + + + [...] | | | | | [place] [address] | | | | | | [phone] | | | | | | | | +--------+ + + + + | 06/26/ | Office | Cardiology | Dora De La Torer | | | 2020 | Visit | | [address] | | | | | | [address] | | | | | | [place] [address] | | | | | | [phone] | | | | | | | | +--------+ + + + + documented as of this encounter Visit Diagnoses Not on filedocumented in this encounter"
--- OUTSIDE RECORDS SUMMARY | ~2020-04-28 | XMS | Encounter Summary ---
Demographics + + + | Address | [address] | | | [place] [address] | + + + | Home Phone [...] [place], [place] | | | | | [address] | | + + + + + Care Team Providers + +------+ + | Care Space Scheduler Name | Role | Phone | + +------+ + PCP | Unavailable | + +------+ + Encounter Details +--------+ + + + + | Date | Type | Department | Care Team | Description | +--------+ + + + + | 06/07/ | Hospital | [facility] | | | | 1991 - | Encounter | MED CTR GENERIC OP | | | | | | CONV DEPT [address] | | | | 10/07/ | | [address], | | | | 1991 | | [place] [address] | | | | | | [phone] | | | +--------+ + + + [...] [address] | | | | | | [place] [address] | | | | | | [phone] | | | | | | | | +--------+ + + + + | 06/26/ | Office | Cardiology | Dora De La Torre | | | 2019 | Visit | | [address] | | | | | | [address] | | | | | | [place] [address] | | | | | | [phone] | | | | | | | | +--------+ + + + + documented as of this encounter Visit Diagnoses Not on filedocumented in this encounter"
--- OUTSIDE RECORDS SUMMARY | ~2020-04-28 | XMS | Encounter Summary ---
Demographics + + + | Address | [address] | | | [place] [address] | + + + | Home Phone [...] [place] | | | | | [address] | | + + + + + Care Team Providers + +------+ + | Care Entry Level Administrative Assistant Name | Role | Phone [...] + + | 10/22/ | Telephone | [facility] | Susu Peralta, | Other | | 2019 | | CARDIOLOGY [place] Nath RN | | | | | [address] | | | | | | [place], [place] | | | | | | [address] | | | | | | [phone] | | | +--------+ + + + [...] | | | | | [place] [address] | | | | | | [phone] | | | | | | | | +--------+ + + + + | 06/26/ | Office | Cardiology | Dora De La Torre | | | 2019 | Visit | | [address] | | | | | | [address] | | | | | | [place] [address] | | | | | | [phone] | | | | | | | | +--------+ + + + + documented as of this encounter Visit Diagnoses Not on filedocumented in this encounter"
--- OUTSIDE RECORDS SUMMARY | ~2020-04-28 | XMS | Encounter Summary ---
Demographics + + + | Address | [address] | | | [place] [address] | + + + | Home Phone [...] [place], [place] | | | | | [address] | | + + + + + Care Team Providers + +------+ + | Care Lunchroom Operator Name | Role | Phone | [...] [place] | | | | | | [address] | | | | | | [phone] | | | +--------+ + + + [...] | | | | | [place] [address] | | | | | | [phone] | | | | | | | | +--------+ + + + + | 06/26/ | Office | Cardiology | Dora De La Torre | | | 2020 | Visit | | [address] | | | | | | [address] | | | | | | [place] [address] | | | | | | [phone] | | | | | | | | +--------+ + + + + documented as of this encounter Visit Diagnoses Not on filedocumented in this encounter"
--- OUTSIDE RECORDS SUMMARY | ~2020-04-28 | XMS | Encounter Summary ---
Demographics + + + | Address | [address] | | | [place] [address] | + + + | Home Phone [...] [place] | | | | | [address] | | + + + + + Care Team Providers + +------+ + | Care Commissions Manager Name | Role | Phone | [...] 50 | [address] [place], [place] | Anxiety; Anemia; | | | | [place] | [address] | Irregular heartbeat; | | | | [address] | | Depression; | | | | [phone] | | Migraine; | | | | [...] [address] | | | | | | [place] [address] | | | | | | [phone] | | | | | | | | +--------+ + + + + | 06/26/ | Office | Cardiology | Dora De La Torre | | | 2019 | Visit | | [address] | | | | | | [address] | | | | | | [place] [address] | | | | | | [phone] | | | | | | | [...]
--- OUTSIDE RECORDS SUMMARY | ~2020-04-28 | XMS | Encounter Summary ---
Demographics + + + | Address | [address] | | | [place] [address] | + + + | Home Phone [...] [place] | | | | | [address] | | + + + + + Care Team Providers + +------+ + | Care Compliance Spec Name | Role | Phone | + [...] | Assistance | | | | [address] [facility] [address] | [address] [place], [place] | | | | | [place], [place] | [id number] | | | | | [address] | | | | | | [phone] | | | +--------+ + + + [...] get a refill of her pain medication [place] 10-325 mg. I l et her know we are beyond the 90 days after her surgery and refills need to come from her [facility] provider. She requests us to update [...] CANTU | | | | | | [place] [address] | | | | | | [phone] | | | | | | | | +--------+ + + + + | 06/26/ | Office | Cardiology | Dora De La Torre | | | 2019 | Visit | | [address] | | | | | | [place] | | | | | | [place] [address] | | | | | | [phone] | | | | | | | | +--------+ + + + + documented as of this encounter Visit Diagnoses Not on filedocumented in this encounter"
--- OUTSIDE RECORDS SUMMARY | ~2020-04-28 | XMS | Encounter Summary ---
Demographics + + + | Address | [address] | | | [place] [address] | + + + | Home Phone [...] [place], [place] | | | | | [address] | | + + + + + Care Team Providers + +------+ + | Care Infectious Waste Technician Name | Role | Phone | + +------+ + PCP | Unavailable | + +------+ + Encounter Details +--------+ + + + + | Date | Type | Department | Care Team | Description | +--------+ + + + + | 07/17/ | Hospital | [facility] | | | | 1997 - | Encounter | MED CTR GENERIC PSY | | | | | | CONV DEPT [address] | | | | 07/25/ | | [place], | | | | 1997 | | [place] [address] | | | | | | [phone] | | | +--------+ + + + [...] CANTU | | | | | | [place] [address] | | | | | | [phone] | | | | | | | | +--------+ + + + + | 06/26/ | Office | Cardiology | Dora De La Torre | | | 2019 | Visit | | [address] | | | | | | [address] | | | | | | [place] [address] | | | | | | [phone] | | | | | | | | +--------+ + + + + documented as of this encounter Visit Diagnoses Not on filedocumented in this encounter"
--- OUTSIDE RECORDS SUMMARY | ~2020-04-28 | XMS | Encounter Summary ---
Demographics + + + | Address | [address] | | | [place] [address] | + + + | Home Phone [...] [place] | | | | | [address] | | + + + + + Care Team Providers + +------+ + | Care Seismograph Chief Name | Role | Phone | [...] + + | 02/26/ | Emergency | [facility] | [place], | CVA (cerebral | | 2015 | | MED CTR EMERGENCY | Davey Simons MD [address] | vascular accident) | | | | CENTER [address] | [address] [facility] | ([facility]) (Primary Dx) | | | | [place], [place] | [place] [address] | | | | | [address] | [phone] | | | | | [phone] | | | +--------+ + + + [...] + + + +---------+ + + | Jackson-3 Fatty | Take 1,000 mg by | [...] be differe nt from the original. [facility] Emergency Department Encounter Note [address] [place] [address] PCP:Natalee Andersen [phone] CHIEF COMPLAINT: Chief Complaint Patient presents with Facial Droop ED Room: ED07/ED07 HPI Cindy Arndt is a 59 y.o. female who presents to the Emergency Department accompanied by a friend from [place] for evaluation. The patient recently had symptoms that were diagno sed as stroke or TIA. The symptoms were of a weakness and numbness in her right arm and leg . She was hospitalized for 4 days in [place] for this. She was discharged and subsequent ly has had 2 or 3 emergency department visits in [place] for symptoms diagnosed as TIAs. These have been recurrent and worsening right arm and leg weakness and then today with some right facial drooping and drooling. She is on Aggrenox. She had a full workup in [place] including brain CT, brain MRI, and carotid [...] Laterality: N/A; Surgeon: Frandy castellanos DO; Location: [facility] MAIN OR CURRENT MEDICATIONS Discharge [...] or Severe Contraindications. Consult references such as Elasticsearch for furthe r information. Magnesium 250 MG [...] or Severe Contraindications. Consult references such as Elasticsearch for further information. Multiple Vitamins-Minerals (CENTRUM SILVER PO) Take 1 tablet by mouth Daily.Historical Med OLANZapine zydis (ZYPREXA ZYDIS) 15 MG disintegrating tablet Take 15 mg by mouth nightly. Jackson-3 Fatty Acids (FISH OIL CONCENTRATE) 1000 MG [...] review all of her imaging studies from [facility] ED COURSE & MEDICAL DECISION MAKING Pertinent Labs & Imaging studies were reviewed along with EMS notes and longterm record s if applicable. (See chart for details) Medications and Allergy list reviewed. Nurses note and old records were reviewed The patient was seen and examined, I was finally able to get her records from [facility] which showed a normal MRI [...] accident) (HCC) Follow-up Information Follow up with [facility]. Specialty: Emergency Medicine Contact information: [address] [address] Follow up with [facility]. Specialty: Emergency Medicine Contact information: [address] [address] Follow up with Natalee Andersen NP. Specialty: Family Nurse Practitioner Contact information: [address] [place] [address] Schedule an appointment as soon as possible for a visit with Baudilio Newman MD. Specialty: Neurology Contact information: [address] [facility] [address] Discharge Medication List as of 02/26/2015 15:21 Davey Varela MD 02/26/15 1732 do cumented in this encounter Miscellaneous Notes ED Triage Notes - Yesenia Monroy RN - 02/26/2015 1:11 PM PDTC/O right sided facial mahendra op and numbness to right arm and leg onset yesterday at approximately 1800. Pt was seen in [facility] by her primary care physician this morning [...] CANTU | | | | | | [place] [address] | | | | | | [phone] | | | | | | | | +--------+ + + + + | 06/26/ | Office | Cardiology | Dora De La Torre | | | 2019 | Visit | | [address] | | | | | | [address] [address] | | | | | | [place] [address] | | | | | | [phone] | | | | | | | [...] mL/min/1.73m2 | [facility] | | | ETHIOPIAN | RATE,ESTIMATED | | MEDICAL | | | | mL/min/1.05k2Lybm than | | CENTER - | | [...] [address] | [place] | [phone] | | [facility] | | [address] | | | - LABORATORY | | [...] | 0.00 | 0.00 - 0.10 | JANE | | | Basophils | | K/uL | [facility] | [...] [address] | [place] | [phone] | | [facility] | | [address] | | | - LABORATORY | | [...] | ---- | | | 02/26/2015 13:10 [facility] | | | Emergency -numbness/facial droop 02/26/2015 08:15 [facility] | | | [facility] 02/19/2015 | | | 10:[address] [facility] | | | [...] as uncontrolled 02/17/2015 | | | 08:22 [facility] Emergency | | | -Long-term (current) [...] and uterus 02/14/2015 | | | 09:56 [facility] Emergency | | | -Disturbance of [...] status 02/06/2015 10:46 | | | [facility] | | | -Generalized [...] deficits | | | 02/01/2015 21:[address] [facility] | | | Emergency 01/22/2015 14:[address] [facility] | | | Urgent Care [...] disc | | | 01/16/2015 12:[address] [facility] | | | Urgent Care [...] | | | medications 01/07/2015 11:[address] [facility] | | | Urgent Care [...] hypothyroidism 12/30/2014 | | | 17:[address] [facility] Emergency | | | -Obstructive [...] hypertension | | | 12/30/2014 14:[address] [facility] | | | Urgent Care [...] | -Cramp of limb 11/29/2014 16:[address] [facility] | | | Urgent Care [...] ------ | | | --------- [address] | | | [facility] [address] | | | [facility] 7 0 Total | | | Note: Visits indicate total known visits. Medicaid [place] Dx are the | | | number of primary diagnoses on the [facility]'s non-emergent dx list. | | | | | | --- ADRIEL has no Care Guidelines for this patient. | | + + + + +---------+ + + | Performing | Address | City/State/[facility] | Phone Number | | Organization | [...]
--- OUTSIDE RECORDS SUMMARY | ~2020-04-28 | XMS | Encounter Summary ---
Demographics + + + | Address | [address] | | | [place] [address] | + + + | Home Phone [...] [place] | | | | | [address] | | + + + + + [...] + | 05/02/ | Telephone | [facility] | Frandy Teresa, | Other | | 2013 | | NEUROSURGERY [address] | DO [address] | | | | | [address] | [address] [place], [place] | | | | | [place], [place] | [id number] | | | | | [address] | | | | | | [phone] | | | +--------+ + + + [...] | | | | | [place] [address] | | | | | | [phone] | | | | | | | | +--------+ + + + + | 06/26/ | Office | Cardiology | Dora De La Torre | | | 2019 | Visit | | [address] | | | | | | [address] | | | | | | [place] [address] | | | | | | [phone] | | | | | | | | +--------+ + + + + documented as of this encounter Visit Diagnoses Not on filedocumented in this encounter"
--- OUTSIDE RECORDS SUMMARY | ~2020-04-28 | XMS | Encounter Summary ---
Demographics + + + | Address | [address] | | | [place] [address] | + + + | Home Phone [...] [place] | | | | | [address] | | + + + + + Care Team Providers + +------+ + | Care Anode Worker Name | Role | Phone | [...] [place] | | | | | | [address] | | | | | | [phone] | | | +--------+ + + + [...] | | | | | [place] [address] | | | | | | [phone] | | | | | | | | +--------+ + + + + | 06/26/ | Office | Cardiology | Dora De La Torre | | | 2020 | Visit | | [address] | | | | | | [place] | | | | | | [place] [address] | | | | | | [phone] | | | | | | | | +--------+ + + + + documented as of this encounter Visit Diagnoses Not on filedocumented in this encounter"
--- OUTSIDE RECORDS SUMMARY | ~2020-04-28 | XMS | Encounter Summary ---
Demographics + + + | Address | [address] | | | [place] [address] | + + + | Home Phone [...] [place], [place] | | | | | [address] | | + + + + + Care Team Providers + +------+ + | Care Enthone Solder Stripper Name | Role | Phone | + +------+ + PCP | Unavailable | + +------+ + Encounter Details +--------+ + + + + | Date | Type | Department | Care Team | Description | +--------+ + + + + | 07/17/ | Hospital | [facility] | | | | 1997 | Encounter | MED CTR EMERGENCY | | | | | | [address] | | | | | | [place] | | | | | | [address] | | | | | | [phone] | | | +--------+ + + + [...] | | | | | [place] [address] | | | | | | [phone] | | | | | | | | +--------+ + + + + | 06/26/ | Office | Cardiology | Dora De La Torre | | | 2020 | Visit | | [address] | | | | | | [address] | | | | | | [place] [address] | | | | | | [phone] | | | | | | | | +--------+ + + + + documented as of this encounter Visit Diagnoses Not on filedocumented in this encounter"
--- OUTSIDE RECORDS SUMMARY | ~2020-04-28 | XMS | Encounter Summary ---
Demographics + + + | Address | [address] | | | [place] [address] | + + + | Home Phone [...] [place] | | | | | [address] | | + + + + + Care Team Providers + +------+ + | Care Poiser Balance Name | Role | Phone | + [...] | abdominal | [place], | [address], | | | | | pain GERD | WET PAN MIXER [address] | [address] | | | | | (gastroesoph | [address] | [place], | | | | | ageal reflux | [address] | [place] [address] | | | | | disease) | [place], | Phone: | | | | | Fatty liver | [place] [address] | [phone] | | | | | DM | Phone: | Fax: | | | | | (diabetes | [phone] | [phone] | | | | | mellitus) | Fax: | | | | | | (HCC) | [phone] | | +--------+ + + + + + Reason for Visit + + + | Reason | Comments | + + + | Gastroesophageal | epigastric pain | | Reflux | | + + + Encounter Details +--------+---------+ + + + | Date | Type | Department | Care Team | Description | +--------+---------+ + + + | 03/06/ | Office | [facility] | [facility], | Epigastric abdominal | | 2012 | Visit | GASTROENTEROLOGY | [address] | pain (Primary Dx); | | | | [address] | [address] | GERD | | | | [address] [place], [place] | [place] | (gastroesophageal | | | | [address] | [address] | reflux disease); | | | | [phone] | | Fatty liver; DM | | [...] years ago by Dr. Saravanan Tsai, in [facility]. Colonoscopy was done 05/[address] Hamlin in [facility]. Allergies Allergen Reactions Demerol Duloxetine Erythromycin [...] encounter Miscellaneous Notes Miscellaneous - ONBASE SCAN [facility] - 03/06/2013 12:00 AM PDT iscellaneous - ONBASE SCAN [facility] - 03/06/2013 12:00 AM PDTEle ctronically signed by Mariah Schulte at 04/09/2013 9:48 AM PDTMiscellaneous - ONBASE SCAN [facility] - 03/06/2013 12:00 AM PDT [...] [address] | | | | | | [place] [address] | | | | | | [phone] | | | | | | | | +--------+ + + + + | 06/26/ | Office | Cardiology | Dora De La Torre | | | 2019 | Visit | | [address] | | | | | | [address] | | | | | | [place] [address] | | | | | | [phone] | | | | | | | [...]
--- OUTSIDE RECORDS SUMMARY | ~2020-04-28 | XMS | Encounter Summary ---
Demographics + + + | Address | [address] | | | [place] [address] | + + + | Home Phone [...] [place] | | | | | [address] | | + + + + + Care Team Providers + +------+ + | Care Construction Electrician Name | Role | Phone | [...] [place] | | | | | | [address] | | | | | | [phone] | | | +--------+ + + + [...] | | | | | [place] [address] | | | | | | [phone] | | | | | | | | +--------+ + + + + | 06/26/ | Office | Cardiology | Dora De La Torre | | | 2020 | Visit | | [address] | | | | | | [address] | | | | | | [place] [address] | | | | | | [phone] | | | | | | | | +--------+ + + + + documented as of this encounter Visit Diagnoses Not on filedocumented in this encounter"
--- OUTSIDE RECORDS SUMMARY | ~2020-04-28 | XMS | Encounter Summary ---
Demographics + + + | Address | [address] | | | [place] [address] | + + + | Home Phone [...] [place], [place] | | | | | [address] | | + + + + + Care Team Providers + +------+ + | Care Managed Services Consultant Name | Role | Phone | + +------+ + PCP | Unavailable | + +------+ + Encounter Details +--------+ + + + + | Date | Type | Department | Care Team | Description | +--------+ + + + + | 10/29/ | Hospital | [facility] | | | | 1994 | Encounter | MED CTR LABORATORY | | | | | | [address] | | | | | | [place] | | | | | | [address] | | | | | | [phone] | | | +--------+ + + + [...] | | | | | [place] [address] | | | | | | [phone] | | | | | | | | +--------+ + + + + | 06/26/ | Office | Cardiology | Dora De La Torre | | | 2020 | Visit | | [address] | | | | | | [address] | | | | | | [place] [address] | | | | | | [phone] | | | | | | | | +--------+ + + + + documented as of this encounter Visit Diagnoses Not on filedocumented in this encounter"
--- OUTSIDE RECORDS SUMMARY | ~2020-04-28 | XMS | Encounter Summary ---
Demographics + + + | Address | [address] | | | [place] [address] | + + + | Home Phone [...] [place] | | | | | [address] | | + + + + + Care Team Providers + +------+ + | Care Beverage Sales Consultant Name | Role | Phone | + +------+ + | Natalee Andersen NP | PCP | | + +------+ + Encounter Details +--------+ + + + + | Date | Type | Department | Care Team | Description | +--------+ + + + + | 06/26/ | Hospital | [facility] | Heather Cordero PT | | | 2014 | Encounter | MED CTR ACUTE | [address] | | | | | PHYSICAL THERAPY | [place] | | | | | [address] [place] | [address] | | | | | [place] [address] | | | | | | [phone] | | | +--------+ + + + [...] + + + +---------+ + + | S[place]-3 Fatty | Take 1,000 mg by | [...] | | | | | [place] [address] | | | | | | [phone] | | | | | | | | +--------+ + + + + | 06/26/ | Office | Cardiology | Dora De La Torre | | | 2020 | Visit | | [address] | | | | | | [address] | | | | | | [place] [address] | | | | | | [phone] | | | | | | | | +--------+ + + + + documented as of this encounter Visit Diagnoses Not on filedocumented in this encounter"
--- OUTSIDE RECORDS SUMMARY | ~2020-04-28 | XMS | Encounter Summary ---
Demographics + + + | Address | [address] | | | [place] [address] | + + + | Home Phone [...] [place], [place] | | | | | [address] | | + + + + + Care Team Providers + +------+ + | Care Industrial Sales Manager Name | Role | Phone | + +------+ + PCP | Unavailable | + +------+ + Encounter Details +--------+ + + + + | Date | Type | Department | Care Team | Description | +--------+ + + + + | 02/02/ | Hospital | [facility] | Serafin Bautista | | | 2011 | Encounter | MED CTR XRAY [address] | T, [address] | | | | | [place] | [address] [place] | | | | | [place] [address] | [address] | | | | | [phone] | | | +--------+ + + + [...] [place] | | | | | | [place] [address] | | | | | | [phone] | | | | | | | | +--------+ + + + + | 06/26/ | Office | Cardiology | Dora De La Torre | | | 2019 | Visit | | [address] | | | | | | [address] [address] | | | | | | [place] [address] | | | | | | [phone] | | | | | | | [...] Performed At | + + + | [facility] Diagnostic Imaging Department | [place] | | [address] [facility] | [facility] [facility] | | PROCEDURE: EPIDURAL STEROID | [...] Transcribed Date/Time: | | | 02/03/2012 18:45 Shuttle Driver: <Electronically Signed | | | by Serafin Bautista MD> 02/14/12 0916 | | + + + + + | Procedure Note | + + | Juan, Rad Conversion - 11/30/2013 5:06 PM [facility] | | Diagnostic Imaging Department | | [address] [facility] | | | | | [...] | Transcribed Date/Time: 02/03/2012 18:45 | | Shuttle Driver: | | <Electronically Signed by Serafin Bautista MD> 02/14/12 0916 | + + + +---------+ + + | Performing | Address | City/State/Zipcode | Phone Number | | Organization | | | | + +---------+ + + | [place] | | | | | [facility] | | | | + +---------+ + + documented in this encounter Visit Diagnoses Not on filedocumented in this encounter"
--- OUTSIDE RECORDS SUMMARY | ~2020-04-28 | XMS | Encounter Summary ---
Demographics + + + | Address | [address] | | | [place] [address] | + + + | Home Phone [...] [place] | | | | | [address] | | + + + + + Care Team Providers + +------+ + | Care Metal Dresser Name | Role | Phone | [...] | | | [address] [place] | [place] [address] | | | | | [place] [address] | | | | | | [phone] | | | +--------+ + + + [...] [address] | | | | | | [place] [address] | | | | | | [phone] | | | | | | | | +--------+ + + + + | 06/26/ | Office | Cardiology | Dora De La Torre | | | 2019 | Visit | | [address] | | | | | | [address] | | | | | | [place] [address] | | | | | | [phone] | | | | | | | [...]
--- OUTSIDE RECORDS SUMMARY | ~2020-04-28 | XMS | Encounter Summary ---
Demographics + + + | Address | [address] | | | [place] [address] | + + + | Home Phone [...] [place] | | | | | [address] | | + + + + + Care Team Providers + +------+ + | Care Frame Assembler Name | Role | Phone | [...] [address] | [address] [place], [place] | (Primary Dx) | | | | [place], [place] | [address] | | | | | [address] | | | | | | [phone] | | | +--------+ + + + [...] [address] | | | | | | [place] [address] | | | | | | [phone] | | | | | | | | +--------+ + + + + | 06/26/ | Office | Cardiology | Dora De La Torre | | | 2019 | Visit | | [address] | | | | | | [address] | | | | | | [place] [address] | | | | | | [phone] | | | | | | | [...] + | MISCELLANEOUS LAB | | | [phone] | + +---------+ + + | MISCELANIOUS LAB | | | [phone] | + +---------+ + + documented in this encounter Visit Diagnoses + + | Diagnosis | + + | Status post lumbar spinal fusion - Primary Arthrodesis status | + + documented in this encounter"
--- OUTSIDE RECORDS SUMMARY | ~2020-04-28 | XMS | Encounter Summary ---
Demographics + + + | Address | [address] | | | [place] [address] | + + + | Home Phone [...] [place] | | | | | [address] | | + + + + + Care Team Providers + +------+ + | Care Tattooer Name | Role | Phone | + +------+ + | Basim Bolanos MD | PCP | | + +------+ + Encounter Details +--------+ + + + + | Date | Type | Department | Care Team | Description | +--------+ + + + + | 03/01/ | Abstract | [facility] [place] | [facility], | | | 2012 | | GASTROENTEROLOGY | [address] | | | | | [address] [place] | [address] | | | | | [address] [place], [place] | [place], [place] | | | | | [address] | [address] | | | | | [phone] | | | +--------+ + + + [...] | | | | | [place] [address] | | | | | | [phone] | | | | | | | | +--------+ + + + + | 06/26/ | Office | Cardiology | Dora De La Torre | | | 2019 | Visit | | [address] | | | | | | [address] [address] | | | | | | [place] [address] | | | | | | [phone] | | | | | | | | +--------+ + + + + documented as of this encounter Visit Diagnoses Not on filedocumented in this encounter"
--- OUTSIDE RECORDS SUMMARY | ~2020-04-28 | XMS | Clinical Summary ---
Demographics + + + | Address | [address] | | | [place] [address] | + + + | Home Phone [...] [place] | | | | | [address] | | + + + + + Care Team Providers + +------+ + | Care Lathe Puller Name | Role | Phone | + +------+ + PCP | Unavailable | + +------+ + Source Comments EDWARD is fully live on both [facility] Ambulatory and [facility] InPatient.[facility] Allergies Not on File Medications [...] | [employer] | xxxxxxxxxx | 02/22/20 | [phone] | [address] | [employer] | | | RE A & | | 15-Pre | 1 | [address] | re | | | B | | sent | | [place] | | | | | | | | [address] | | + +--------+ +--------+ + +--------+ + +--------+ +--------+ + + | Guarantor Name | Accoun | Relation to | Date | Phone | Billing Address | | | t Type | Patient | of | | | | | | | | | | + +--------+ +--------+ + + | CINDY ARNDT | Person | Self | [birth year] | [address] | | al/Fam | | 1955 | [phone] | [address] [place] | | | devonte | | | 5 (Home) | [address] | + +--------+ +--------+ + +"
--- OUTSIDE RECORDS SUMMARY | ~2020-04-28 | XMS | Encounter Summary ---
Demographics + + + | Address | [address] | | | [place] [address] | + + + | Home Phone [...] [place] | | | | | [address] | | + + + + + Care Team Providers + +------+ + | Care Porcelain Enamel Sprayer Name | Role | Phone | [...] | | Required | | branch | PROPERTY CONTROLLER [address] | [address] | | | | | block | [address] | [place] | | | | | Paroxysmal | [place] [address] | [address] | | | | | A-fib ([facility]) | [place], [place] | [address] | | | | | | [address] | [place], [place] | | | | | Schizoaffect | Phone: | [address] Phone: | | | | | chris | [phone] | [phone] | | | | | disorder, | Fax: | Fax: | | | | | bipolar type | [phone] | [phone] | | | | | (HCC) | [...] + + | 04/24/ | Office | [facility] | Dora De La Torre | Left bundle branch | | 2020 | Visit | CARDIOLOGY [place] | [address] | block (Primary Dx); | | | | [address] | [address] | Paroxysmal A-fib | | | | [address] | [place] [address] | ([facility]); Mild | | | | [place], [place] | [phone] | hyperlipidemia; | | | | [address] | | Benign essential | | | | [phone] | | HTN; Poorly | | | | | | controlled type 2 | | | | | | diabetes mellitus | | | | | | ([facility]); Syncope, | | | | | | [...] | | | | | | type ([facility]); Rapid | | | | | | [...] have referred you to Dr. 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 [...] also resol shelly with weight loss Her QMA2FL4 VASC score is 4 (stroke, HTN, gender) [...] She has previously seen Dr. Garland in [place], and different sleep provider in [facility] when lived over there. She previously had [...] her syncopal episode she had notified [facility] cardiology, and Dr. aMrquez, who was on-call ,had told her to [...] PCP, or get a referral to an density control puncher to get her blood sugars better controlled, [...] thirst or hunger. Psychiatric/Behavioral: Bipolar/Schizophrenia. Tx'd by [employer] Vaccines: Current on flu vaccine: 2019 Current on pneumonia vaccine:PPSV 23 05/29/2013 Habits/Social : Denies history of smoking. Denies EtOH use. Denies recreational or illici t drug use. Exercises sporadically. Lives in [place] . Outpatient Medications Prior to Visit Medication [...] chest discomfort, [facility] Resting EKG normal sinus rhythm, arrhythmias [...] nonspecific ST-T wave abnormality rate 82 bpm, SD 176 ms, QRS 80 ms, QTC 446 ms tracing personally reviewed by me EK12/17/2019: Sinus tachycardia, nonspecific ST wave abnormalities, rate 105 bpm, SD 196 ms, QRS 74 ms, QTC 430 ms, tracing personally reviewed by me, and compared to EKG performed in February 2019, rate is less well-controlled EK01/10/2020 (metoprolol XL 50 mg twice daily. Normal sinus rhythm, new left bundle bran ch block Rate 74 bpm, SD 204 ms, QRS 138 ms, QTC 488 [...] bundle branch block. Ra te 105 bpm, SD 184 ms, QRS 144 ms, QTC 489 [...] except tricyclics. Thyroid: TSH 3.39. Labs: 04/20/2020: ([facility]). CMP: Sodium 130, potassium 4.1, chloride [...] admission and overnight teleme try stay at [facility] for syncopal episode with extremely elevated glucose levels of 404, with hemoglobin A1c of 15.2. She has problems as detailed below. As discussed in HPI, she did not have any arrhythmias [facility], and her EKG performed the ER showed [...] notes for continuity of care purp kavon [facility] [employer] [facility]2020 Laurie vivar in this [...] | | | | | [place] [address] | | | | | | [phone] | | | | | | | | +--------+ + + + + | 06/26/ | Office | Cardiology | Dora De La Torre | | 2019 | Visit | | [address] | | | | | | [address] | | | | | | [place] [address] | | | | | | [phone] | | | | | | | [...] | | | | | | A-fib ([facility]) | | | | | | Schizoaffective | | | | | | disorder, bipolar | | | | | | type ([facility]) Rapid | | | | | | [...]
--- OUTSIDE RECORDS SUMMARY | ~2020-04-28 | XMS | Encounter Summary ---
Demographics + + + | Address | [address] | | | [place] [address] | + + + | Home Phone [...] [place] | | | | | [address] | | + + + + + Care Team Providers + +------+ + | Care Advertising Copywriter Name | Role | Phone | + [...] + | 02/21/ | Refill | [facility] | Deon Gonzales | Medication Refill | | 2012 | | SLEEP DISORDER [address] | MD La[address] | | | | | [address] [place] | [address] | | | | | [place] [address] | [place] [address] | | | | | [phone] | [phone] | | | | | | | [...] - 02/22/2013 9:32 AM PDTFaxed to [facility] documented in this encount er [...] [address] | | | | | | [place] [address] | | | | | | [phone] | | | | | | | | +--------+ + + + + | 06/26/ | Office | Cardiology | Dora De La Torre | | | 2020 | Visit | | [address] | | | | | | [place] | | | | | | [place] [address] | | | | | | [phone] | | | | | | | | +--------+ + + + + documented as of this encounter Visit Diagnoses + + | Diagnosis | + + | Obstructive sleep apnea (adult) (pediatric) - Primary | + + documented in this encounter"
--- OUTSIDE RECORDS SUMMARY | ~2020-04-28 | XMS | Encounter Summary ---
Demographics + + + | Address | [address] | | | [place] [address] | + + + | Home Phone [...] [place] | | | | | [address] | | + + + + + Care Team Providers + +------+ + | Care Product Support Analyst Name | Role | Phone | + +------+ + | Natalee Andersen NP | PCP | | + +------+ + Encounter Details +--------+ + + + + | Date | Type | Department | Care Team | Description | +--------+ + + + + | 07/25/ | Hospital | [facility] | Frandy Teresa, | Status post lumbar | | 2014 | Encounter | MED CTR XRAY [address] | DO [address] | spinal fusion | | | | [place] | [address] [place], [place] | | | | | [place] [address] | [address] | | | | | [phone] | | | +--------+ + + + [...] + + + +---------+ + + | Ovando-3 Fatty | Take 1,000 mg by | [...] | | | | | [place] [address] | | | | | | [phone] | | | | | | | | +--------+ + + + + | 06/26/ | Office | Cardiology | Dora De La Torre | | | 2020 | Visit | | [address] | | | | | | [place] | | | | | | [place] [address] | | | | | | [phone] | | | | | | | [...] + | MISCELLANEOUS LAB | | | [phone] | + +---------+ + + | MISCELANIOUS LAB | | | [phone] | + +---------+ + + documented in this encounter Visit Diagnoses + + | Diagnosis | + + | Status post lumbar spinal fusion Arthrodesis status | + + documented in this encounter"
--- OUTSIDE RECORDS SUMMARY | ~2020-04-28 | XMS | Encounter Summary ---
Demographics + + + | Address | [address] | | | [place] [address] | + + + | Home Phone [...] [place], [place] | | | | | [address] | | + + + + + Care Team Providers + +------+ + | Care Refuse Collector Supervisor Name | Role | Phone | [...] | | | | | | [address] [facility] | | | | | | [place], [place] | | | | | | [address] | | | | | | [phone] | | | +--------+ + + + [...] | | | | | [place] [address] | | | | | | [phone] | | | | | | | | +--------+ + + + + | 06/26/ | Office | Cardiology | Dora De La Torre | | | 2020 | Visit | | [address] | | | | | | [place] | | | | | | [place] [address] | | | | | | [phone] | | | | | | | | +--------+ + + + + documented as of this encounter Visit Diagnoses Not on filedocumented in this encounter"
--- OUTSIDE RECORDS SUMMARY | ~2020-04-28 | XMS | Encounter Summary ---
Demographics + + + | Address | [address] | | | [place] [address] | + + + | Home Phone [...] [place], [place] | | | | | [address] | | + + + + + Care Team Providers + +------+ + | Care Fast Food Shift Lead Name | Role | Phone | + +------+ + PCP | Unavailable | + +------+ + Encounter Details +--------+ + + + + | Date | Type | Department | Care Team | Description | +--------+ + + + + | 01/16/ | Hospital | [facility] | | | | 2002 | Encounter | MED CTR XRAY [address] | | | | | | [address] | | | | | | [place] [address] | | | | | | [phone] | | | +--------+ + + + [...] | | | | | [place] [address] | | | | | | [phone] | | | | | | | | +--------+ + + + + | 06/26/ | Office | Cardiology | Dora De La Torre | | | 2019 | Visit | | [address] | | | | | | [address] | | | | | | [place] [address] | | | | | | [phone] | | | | | | | | +--------+ + + + + documented as of this encounter Visit Diagnoses Not on filedocumented in this encounter"
--- OUTSIDE RECORDS SUMMARY | ~2020-04-28 | XMS | Encounter Summary ---
Demographics + + + | Address | [address] | | | [place] [address] | + + + | Home Phone [...] [place] | | | | | [address] | | + + + + + Care Team Providers + +------+ + | Care Rubber Cutter And Shape Carver Name | Role | Phone | + [...] | | [address] | [place], [place] | | | | | [place], [place] | [address] | | | | | [address] | | | | | | [phone] | | | +--------+ + + + [...] [address] | | | | | | [place] [address] | | | | | | [phone] | | | | | | | | +--------+ + + + + | 06/26/ | Office | Cardiology | Dora De La Torre | | | 2019 | Visit | | [address] | | | | | | [place] | | | | | | [place] [address] | | | | | | [phone] | | | | | | | [...] 0.83 m/s | | | MV Dec Fajardo: 2.85 m/s2 MV DecT: 282.89 ms MV E Teodoro: 0.80 | | | m/s MV E/A Ratio: 0.96 E/E' Sept: 12.59 E' Lat: 0.08 m/s | | | E' Sept: 0.06 m/s RAP: 10 mmHg RV S': 0.11 m/s RVSP: | | | 27.96 mmHg TR maxP.96 mmHg TR Vmax: 2.11 m/s | | | Horticultural Therapist: Authenticated by: Desiree Peterson MD Report Date/Time: | | | -- [id number]_1:31:1 | | + + + + + [...] (A-L): 19.60 | | ml/m2LAAs A2C: 15.44 mw7OLWHN A-L A2C: 43.84 mlLAESV MOD A2C: 42.12 mlLALs A2C: | | 4.61 cmLAAs A4C: 14.18 in1NEXVL A-L A4C: 38.73 mlLAESV MOD A4C: 37.04 mlLALs A4C: | | 4.41 cmRAAs: 12.15 gg8AMSJS A-L: 28.54 mlRAESV MOD: 28.66 mlRALs: 4.39 | | cmTAPSE: 2.42 cmAV Env.Ti: 293.94 msAV maxP.18 mmHgAV meanP.09 mmHgAV | | Vmax: 1.88 m/Eddie Vmean: 1.25 m/Eddie VTI: 36.84 cmAVA Vmax: 2.06 cm2AVA (VTI): | | 2.24 og3JQGR Vmax: 0.00 cm2/m2AVAI (VTI): 0.00 cm2/m2LVOT Env.Ti: 299.59 msLVOT | | maxP.52 mmHgLVOT meanP.65 mmHgLVSI Dopp: 38.55 ml/m2LVSV Dopp: 82.89 | | mlLVOT Vmax: 1.27 m/sLVOT Vmean: 0.91 m/sLVOT VTI: 27.27 cmMV A Teodoro: 0.83 m/sMV | | Dec Fajardo: 2.85 m/s2MV DecT: 282.89 msMV E Teodoro: 0.80 m/sMV E/A Ratio: 0.96E/E' | | Sept: 12.59E' Lat: 0.08 m/sE' Sept: 0.06 m/sRAP: 10 mmHgRV S': 0.11 m/sRVSP: | | 27.96 mmHgTR maxP.96 mmHgTR Vmax: 2.11 m/s Horticultural Therapist:Authenticated by: | | Desiree Peterson MDReport Date/Time: -- [id number]:31:1 IMPRESSION: 1. Overall left | | ventricular [...] A Teodoro: 0.83 m/s | |MV Dec Fajardo: 2.85 m/s2 | |MV DecT: 282.89 ms | |MV E Teodoro: 0.80 m/s | |MV E/A Ratio: 0.96 | |E/E' Sept: 12.59 | |E' Lat: 0.08 m/s | |E' Sept: 0.06 m/s | |RAP: 10 mmHg | |RV S': 0.11 m/s | |RVSP: 27.96 mmHg | |TR maxP.96 mmHg | |TR Vmax: 2.11 m/s | | | |Horticultural Therapist: | |Authenticated by: Desiree Peterson MD | |Report Date/Time: -- [id number]_3:31:1 | | | |IMPRESSION: | |1. Overall [...]
--- OUTSIDE RECORDS SUMMARY | ~2020-04-28 | XMS | Encounter Summary ---
Demographics + + + | Address | [address] | | | [place] [address] | + + + | Home Phone [...] [place], [place] | | | | | [address] | | + + + + + Care Team Providers + +------+ + | Care Rn Cardiac Name | Role | Phone | + +------+ + PCP | Unavailable | + +------+ + Encounter Details +--------+ + + + + | Date | Type | Department | Care Team | Description | +--------+ + + + + | 04/16/ | Hospital | [facility] | | | | 1997 | Encounter | MED CTR XRAY [address] | | | | | | [address] | | | | | | [place] [address] | | | | | | [phone] | | | +--------+ + + + [...] | | | | | [place] [address] | | | | | | [phone] | | | | | | | | +--------+ + + + + | 06/26/ | Office | Cardiology | Dora De La Torre | | | 2019 | Visit | | [address] | | | | | | [place] | | | | | | [place] [address] | | | | | | [phone] | | | | | | | | +--------+ + + + + documented as of this encounter Visit Diagnoses Not on filedocumented in this encounter"
--- OUTSIDE RECORDS SUMMARY | ~2020-04-28 | XMS | Encounter Summary ---
Demographics + + + | Address | [address] | | | [place] [address] | + + + | Home Phone [...] [place], [place] | | | | | [address] | | + + + + + Care Team Providers + +------+ + | Care Rn Case Management Name | Role | Phone | + +------+ + PCP | Unavailable | + +------+ + Encounter Details +--------+ + + + + | Date | Type | Department | Care Team | Description | +--------+ + + + + | 02/22/ | Hospital | [facility] | | | | 1996 - | Encounter | MED CTR GENERIC PSY | | | | | | CONV DEPT [address] | | | | 02/26/ | | [address], | | | | 1996 | | [place] [address] | | | | | | [phone] | | | +--------+ + + + [...] [address] | | | | | | [place] [address] | | | | | | [phone] | | | | | | | | +--------+ + + + + | 06/26/ | Office | Cardiology | Dora De La Torre | | | 2019 | Visit | | [address] | | | | | | [place] | | | | | | [place] [address] | | | | | | [phone] | | | | | | | | +--------+ + + + + documented as of this encounter Visit Diagnoses Not on filedocumented in this encounter"
--- OUTSIDE RECORDS SUMMARY | ~2020-04-28 | XMS | Encounter Summary ---
Demographics + + + | Address | [address] | | | [place] [address] | + + + | Home Phone [...] [place] | | | | | [address] | | + + + + + Care Team Providers + +------+ + | Care Manager Management Name | Role | Phone | [...] [place] | | | | | | [address] | | | | | | [phone] | | | +--------+ + + + [...] | | | | | [place] [address] | | | | | | [phone] | | | | | | | | +--------+ + + + + | 06/26/ | Office | Cardiology | Dora De La Torre | | | 2020 | Visit | | [address] | | | | | | [address] [address] | | | | | | [place] [address] | | | | | | [phone] | | | | | | | | +--------+ + + + + documented as of this encounter Visit Diagnoses Not on filedocumented in this encounter"
--- OUTSIDE RECORDS SUMMARY | ~2020-04-28 | XMS | Encounter Summary ---
Demographics + + + | Address | [address] | | | [place] [address] | + + + | Home Phone [...] [place], [place] | | | | | [address] | | + + + + + Care Team Providers + +------+ + | Care Safe Expert Name | Role | Phone | [...] [address] | | | | | | [place], [place] | | | | | | [address] | | | | | | [phone] | | | +--------+ + + + [...] | | | | | [place] [address] | | | | | | [phone] | | | | | | | | +--------+ + + + + | 06/26/ | Office | Cardiology | Dora De La Torre | | | 2020 | Visit | | [address] | | | | | | [place] | | | | | | [place] [address] | | | | | | [phone] | | | | | | | | +--------+ + + + + documented as of this encounter Visit Diagnoses Not on filedocumented in this encounter
--- OUTSIDE RECORDS SUMMARY | ~2020-04-28 | XMS | Encounter Summary ---
Demographics + + + | Address | [address] | | | [place] [address] | + + + | Home Phone [...] [place], [place] | | | | | [address] | | + + + + + Care Team Providers + +------+ + | Care Sample Grinder Name | Role | Phone | + +------+ + PCP | Unavailable | + +------+ + Encounter Details +--------+ + + + + | Date | Type | Department | Care Team | Description | +--------+ + + + + | 02/22/ | Hospital | [facility] | | | | 1996 | Encounter | MED CTR EMERGENCY | | | | | | [address] | | | | | | [place] | | | | | | [address] | | | | | | [phone] | | | +--------+ + + + [...] | | | | | [place] [address] | | | | | | [phone] | | | | | | | | +--------+ + + + + | 06/26/ | Office | Cardiology | Dora De La Torre | | | 2020 | Visit | | [address] | | | | | | [address] | | | | | | [place] [address] | | | | | | [phone] | | | | | | | | +--------+ + + + + documented as of this encounter Visit Diagnoses Not on filedocumented in this encounter"
--- OUTSIDE RECORDS SUMMARY | ~2020-04-28 | XMS | Encounter Summary ---
Demographics + + + | Address | [address] | | | [place] [address] | + + + | Home Phone [...] [place], [place] | | | | | [address] | | + + + + + Care Team Providers + +------+ + | Care Contracts Intern Name | Role | Phone | + +------+ + PCP | Unavailable | + +------+ + Encounter Details +--------+ + + + + | Date | Type | Department | Care Team | Description | +--------+ + + + + | 09/10/ | Hospital | [facility] | | | | 1992 | Encounter | MED CTR LABORATORY | | | | | | [address] | | | | | | [place] | | | | | | [address] | | | | | | [phone] | | | +--------+ + + + [...] | | | | | [place] [address] | | | | | | [phone] | | | | | | | | +--------+ + + + + | 06/26/ | Office | Cardiology | Dora De La Torre | | | 2020 | Visit | | [address] | | | | | | [address] | | | | | | [place] [address] | | | | | | [phone] | | | | | | | | +--------+ + + + + documented as of this encounter Visit Diagnoses Not on filedocumented in this encounter"
--- OUTSIDE RECORDS SUMMARY | ~2020-04-28 | XMS | Encounter Summary ---
Demographics + + + | Address | [address] | | | [place] [address] | + + + | Home Phone [...] [place] | | | | | [address] | | + + + + + Care Team Providers + +------+ + | Care Head Of Store Operations Name | Role | Phone | + +------+ + | Natalee Andersen NP | PCP | | + +------+ + Encounter Details +--------+ + + + + | Date | Type | Department | Care Team | Description | +--------+ + + + + | 06/25/ | Hospital | [facility] | Frandy Teresa, | Acquired | | 2014 | Encounter | MED CTR XRAY [address] | DO [address] | spondylolisthesis | | | | [place] | [address] [place], [place] | | | | | [place] [address] | [address] | | | | | [phone] | | | +--------+ + + + [...] + + + +---------+ + + | Creekside-3 Fatty | Take 1,000 mg by | [...] [address] | | | | | | [place] [address] | | | | | | [phone] | | | | | | | | +--------+ + + + + | 06/26/ | Office | Cardiology | Dora De La Torre | | | 2020 | Visit | | [address] | | | | | | [place] | | | | | | [place] [address] | | | | | | [phone] | | | | | | | | +--------+ + + + + documented as of this encounter Visit Diagnoses + + | Diagnosis | + + | Acquired spondylolisthesis | + + documented in this encounter"
--- OUTSIDE RECORDS SUMMARY | ~2020-04-28 | XMS | Encounter Summary ---
Demographics + + + | Address | [address] | | | [place] [address] | + + + | Home Phone [...] [place] | | | | | [address] | | + + + + + Care Team Providers + +------+ + | Care Specialty Therapist Name | Role | Phone | [...] [place] | | | | | | [address] | | | | | | [phone] | | | +--------+ + + + [...] | | | | | [place] [address] | | | | | | [phone] | | | | | | | | +--------+ + + + + | 06/26/ | Office | Cardiology | Dora De La Torre | | | 2020 | Visit | | [address] | | | | | | [place] | | | | | | [place] [address] | | | | | | [phone] | | | | | | | | +--------+ + + + + documented as of this encounter Visit Diagnoses Not on filedocumented in this encounter"
--- OUTSIDE RECORDS SUMMARY | ~2020-04-28 | XMS | Encounter Summary ---
Demographics + + + | Address | [address] | | | [place] [address] | + + + | Home Phone [...] [place], [place] | | | | | [address] | | + + + + + Care Team Providers + +------+ + | Care Air Pumper Name | Role | Phone | + +------+ + PCP | Unavailable | + +------+ + Encounter Details +--------+ + + + + | Date | Type | Department | Care Team | Description | +--------+ + + + + | 03/13/ | Hospital | [facility] | | | | 1996 - | Encounter | MED CTR GENERIC OP | | | | | | CONV DEPT [address] | | | | 03/21/ | | [address], | | | | 1996 | | [place] [address] | | | | | | [phone] | | | +--------+ + + + [...] [address] | | | | | | [place] [address] | | | | | | [phone] | | | | | | | | +--------+ + + + + | 06/26/ | Office | Cardiology | Dora De La Torre | | | 2019 | Visit | | [address] | | | | | | [address] [address] | | | | | | [place] [address] | | | | | | [phone] | | | | | | | | +--------+ + + + + documented as of this encounter Visit Diagnoses Not on filedocumented in this encounter"
--- OUTSIDE RECORDS SUMMARY | ~2020-04-28 | XMS | Encounter Summary ---
Demographics + + + | Address | [address] | | | [place] [address] | + + + | Home Phone [...] [place] | | | | | [address] | | + + + + + Care Team Providers + +------+ + | Care Business Librarian Name | Role | Phone | [...] | Frandy Simons DO | [address] | | | | | of skin | [address] | [place], | | | | | sensation | [address] | [place] | | | | | Arthrodesis | [place], [place] | [address] | | | | | status Left | [address] | Phone: | | | | | leg | Phone: | [phone] | | | | | weakness | [phone] | Fax: | | | | | Procedures | Fax: | [phone] | | | | | MRI Lumbar | [phone] | | | | | | Spine [...] | Frandy Simons DO | [address] | | | | | of skin | [address] | [place], | | | | | sensation | [address] | [place] | | | | | Arthrodesis | [place] | [address] | | | | | status Left | [address] | Phone: | | | | | leg | Phone: | [phone] | | | | | weakness | [phone] | Fax: | | | | | Procedures | Fax: | [phone] | | | | | MRI Lumbar | [phone] | | | | | | Spine wo | | | | | | | Contrast | | | +--------+--------+ + + + + Encounter Details +--------+ + + + + | Date | Type | Department | Care Team | Description | +--------+ + + + + | 08/19/ | Hospital | [facility] | Frandy Teresa, | Status post lumbar | | 2013 | Encounter | [facility] [address] | DO [address] | spinal fusion; Left | | | | [place], | [address] | leg numbness; Left | | | | [place] [address] | [address] | leg weakness | | | | [phone] | | | +--------+ + + + [...] + + + +---------+ + + | [place]-3 Fatty | Take 1,000 mg by | [...] [address] | | | | | | [place] [address] | | | | | | [phone] | | | | | | | | +--------+ + + + + | 06/26/ | Office | Cardiology | D[facility] | | | 2019 | Visit | | [address] | | | | | | [address] | | | | | | [place] [address] | | | | | | [phone] | | | | | | | [...] the round structure with high T1 and [id number] in the right L3 vertebral | | [...] + | MISCELLANEOUS LAB | | | [phone] | + +---------+ + + | MISCELANIOUS LAB | | | [phone] | + +---------+ + + documented in [...]
--- OUTSIDE RECORDS SUMMARY | ~2020-04-28 | XMS | Encounter Summary ---
Demographics + + + | Address | [address] | | | [place] [address] | + + + | Home Phone [...] [place], [place] | | | | | [address] | | + + + + + Care Team Providers + +------+ + | Care Book Canvasser Name | Role | Phone | + +------+ + PCP | Unavailable | + +------+ + Encounter Details +--------+ + + + + | Date | Type | Department | Care Team | Description | +--------+ + + + + | 12/24/ | Hospital | [facility] | | | | 1998 | Encounter | MED CTR XRAY [address] | | | | | | [address] [place] | | | | | | [place] [address] | | | | | | [phone] | | | +--------+ + + + [...] | | | | | [place] [address] | | | | | | [phone] | | | | | | | | +--------+ + + + + | 06/26/ | Office | Cardiology | Dora De La Torre | | | 2019 | Visit | | [address] | | | | | | [address] | | | | | | [place] [address] | | | | | | [phone] | | | | | | | | +--------+ + + + + documented as of this encounter Visit Diagnoses Not on filedocumented in this encounter"
--- OUTSIDE RECORDS SUMMARY | ~2020-04-28 | XMS | Encounter Summary ---
Demographics + + + | Address | [address] | | | [place] [address] | + + + | Home Phone [...] [place] | | | | | [address] | | + + + + + Care Team Providers + +------+ + | Care Principal Security Architect Name | Role | Phone | [...] [address] | [address] [place], [place] | | | | | [place], [place] | [address] | | | | | [address] | | | | | | [phone] | | | +--------+ + + + [...] [address] | | | | | | [place] [address] | | | | | | [phone] | | | | | | | | +--------+ + + + + | 06/26/ | Office | Cardiology | Dora De La Torre | | | 2020 | Visit | | [address] | | | | | | [address] | | | | | | [place] [address] | | | | | | [phone] | | | | | | | [...] + | MISCELLANEOUS LAB | | | [phone] | + +---------+ + + | MISCELANIOUS LAB | | | [phone] | + +---------+ + + documented in this encounter Visit Diagnoses + + | Diagnosis | + + | Back pain - Primary Backache, unspecified | + + documented in this encounter"
--- OUTSIDE RECORDS SUMMARY | ~2020-04-28 | XMS | Encounter Summary ---
Demographics + + + | Address | [address] | | | [place] [address] | + + + | Home Phone [...] + | Arcaeli Sibley | ECON | [place] | | | | | [address] | | + + + + + Care Team Providers + +------+ + | Care Cath Lab Manager Name | Role | Phone | [...] + | 07/10/ | Telephone | [facility] | Frandy Teresa, | Imaging Only (1 year | | 2014 | | NEUROSURGERY [address] | DO [address] | x-ray ) | | | | [address] | [address] [place], [place] | | | | | [place], [place] | [address] | | | | | [address] | | | | | | [phone] | | | +--------+ + + + [...] | | | | | [place] [address] | | | | | | [phone] | | | | | | | | +--------+ + + + + | 06/26/ | Office | Cardiology | Dora De La Torre | | | 2019 | Visit | | [address] | | | | | | [address] | | | | | | [place] [address] | | | | | | [phone] | | | | | | | | +--------+ + + + + documented as of this encounter Visit Diagnoses Not on filedocumented in this encounter"
--- OUTSIDE RECORDS SUMMARY | ~2020-04-28 | XMS | Encounter Summary ---
Demographics + + + | Address | [address] | | | [place] [address] | + + + | Home Phone [...] [place] | | | | | [address] | | + + + + + Care Team Providers + +------+ + | Care Clinical Biochemical Geneticist Name | Role | Phone | [...] | | | | | | DEJAN [address]A | address | | | | | | [place], | | | | | | | [place] | | | | | | | [address] | | | | | | | Phone: | | | | | | | [phone] | | | | | | | Fax: | | | | | | | [phone] | | +--------+--------+ + + + + Encounter Details +--------+---------+ + + + | Date | Type | Department | Care Team | Description | +--------+---------+ + + + | 02/27/ | [facility] | [facility] | Baudilio Newman | Neuropathy (Primary | | 2015 | Visit | NEUROLOGY LAURIE | MD Pollo Need updated | Dx); Sleep apnea; | | | | [address], | address | Stroke (HCC); | | | | [address] [place] | | Thyroid disease | | | | [place] [address] | | | | | | [phone] | | | +--------+---------+ + + + [...] supply of blood, brain tissue quickly dies. [id number] [employer]. [address] [place] [address]. All righ ts reserved. This information is not intended as a substitute for professional medical care. Always follow your healthcare professional's instructions. documented in this encounter Progress Notes Baudilio Newman MD - 02/27/2015 10:31 AM PDTFormatting of this note might be differen t from the original. Baudilio Newman MD [address] [place] [address], [address] [place] [address] Neurology Outpatient New Patient Note Referring Provider: [...] history. Notes from her recent hospitalization at [facility] were reviewed in detail. Ms. Arndt started feeling off in the evening of 02/01. She felt dizzy and laid down to slee p. Upon waking, she felt her right side was numb. She tried to get up to go to the bathroom and realized she was weak as well on the right. She was taken to [facility] where she was diagnosed with a [...] systol ically. She was reevaluated in the [facility] ED for one such event and [...] hospitalization . This specimen was characterized at [facility], but the report is not currently available for [facility]. Unfortunately, Ms. Arndt notes that her right [...] N/A; Surgeon: Frandy castellanos DO; Location: [facility] MAIN OR Current Medications: Outpatient [...] tablet Take 15 mg by mouth nightly. [place]-3 Fatty Acids (FISH OIL CONCENTRATE) 1000 [...] BMI 46.04 kg /m2 Neck Circumference: 14" [place] Sleepiness Scale: 2 General: well developed and [...] Romberg test negative Radiographic Review: CTA from [facility] reviewed on [facility]. No significant stenoses seen [...] No results found for this basename: hba1c, xrw9awb, ldl, ldldirect, ldlext, dldlex Lab Results Component [...] [address] | | | | | | [place] [address] | | | | | | [phone] | | | | | | | | +--------+ + + + + | 06/26/ | Office | Cardiology | Dora De La Torre | | | 2020 | Visit | | [address] | | | | | | [address] | | | | | | [place] [address] | | | | | | [phone] | | | | | | | [...]
--- OUTSIDE RECORDS SUMMARY | ~2020-04-28 | XMS | Encounter Summary ---
Demographics + + + | Address | [address] | | | [place] [address] | + + + | Home Phone [...] [place] | | | | | [address] | | + + + + + Care Team Providers + +------+ + | Care Supervisor Slashing Department Name | Role | Phone | [...] + + | 10/23/ | Telephone | [facility] | Ashley Chávez | Other (Patient | | 2019 | | CARDIOLOGY [place] | Pollo, Forest Fire Warden | called about | | | | [address] | | metoprolol. ) | | | | [place], [place] | | | | | | [address] | | | | | | [phone] | | | +--------+ + + + [...] Miscellaneous Notes Telephone Encounter - Ashley Chávez, Forest Fire Warden - [facility]23[facility]2019 [facility] is [facility] if the [facility]oprolol is working? Dr Petreson told her to call us if the Metoprolol 50mg is not helping. Patient called to see if would like to increase her dose. I was able to talk patient down and she sounded more at ease when we hung up. I told patient I would talk to Dr Peterson and call her back when I have her recommendations. JDW:CONSTRUCTION SECRETARY-AAMA. [facility] umented in this encounter Plan of [...] [address] | | | | | | [place] [address] | | | | | | [phone] | | | | | | | | +--------+ + + + + | 06/26/ | Office | Cardiology | StefanielarryDora | | 2019 | Visit | | [address] | | | | | | [address] | | | | | | [place] [address] | | | | | | [phone] | | | | | | | | +--------+ + + + + documented as of this encounter Visit Diagnoses Not on filedocumented in this encounter"
--- OUTSIDE RECORDS SUMMARY | ~2020-04-28 | XMS | Encounter Summary ---
Demographics + + + | Address | [address] | | | [place] [address] | + + + | Home Phone [...] [place] | | | | | [address] | | + + + + + Care Team Providers + +------+ + | Care Patcher Helper Name | Role | Phone | [...] [address] | [address] [place], [place] | fusion | | | | [place], [place] | [address] | | | | | [address] | | | | | | [phone] | | | +--------+ + + + [...] [address] | | | | | | [place] [address] | | | | | | [phone] | | | | | | | | +--------+ + + + + | 06/26/ | Office | Cardiology | Dora De La Torre | | | 2019 | Visit | | [address] | | | | | | [address] | | | | | | [place] [address] | | | | | | [phone] | | | | | | | | +--------+ + + + + documented as of this encounter Visit Diagnoses + + | Diagnosis | + + | Lumbago - Primary | + + | S/P lumbar fusion Arthrodesis status | + + documented in this encounter"
--- OUTSIDE RECORDS SUMMARY | ~2020-04-28 | XMS | Encounter Summary ---
Demographics + + + | Address | [address] | | | [place] [address] | + + + | Home Phone [...] [place] | | | | | [address] | | + + + + + Care Team Providers + +------+ + | Care Vp Global Name | Role | Phone | + +------+ + | Natalee Andersen NP | PCP | | + +------+ + Encounter Details +--------+ + + + + | Date | Type | Department | Care Team | Description | +--------+ + + + + | 06/25/ | Anesthesia | [facility] | rOlando Patel, | | | 2013 | Event | MED CTR OR INTRA OP | MD [address] | | | | | [address] | [place], [place] | | | | | [place], [place] | [address] | | | | | [address] | | | | | | [phone] | | | +--------+ + + + [...] EVALUATION Cindy Arndt 58 y.o. female 1955 [id number] Scheduled procedure LAMINECTOMY PLIF/TLIF INSTRUMENTATION [1842] - [...] | | | | | [place] [address] | | | | | | [phone] | | | | | | | | +--------+ + + + + | 06/26/ | Office | Cardiology | Dora De La Torre | | | 2020 | Visit | | [address] | | | | | | [address] | | | | | | [place] [address] | | | | | | [phone] | | | | | | | | +--------+ + + + + documented as of this encounter Visit Diagnoses Not on filedocumented in this encounter"
--- OUTSIDE RECORDS SUMMARY | ~2020-04-28 | XMS | Encounter Summary ---
Demographics + + + | Address | [address] | | | [place] [address] | + + + | Home Phone [...] [place] | | | | | [address] | | + + + + + Care Team Providers + +------+ + | Care Tomato Grader Name | Role | Phone | [...] | | | spondylolist | | [address] | | | | | hesis | | [place], | | | | | Spinal | | [place] [address] | | | | | stenosis, | | Phone: | | | | | lumbar | | [phone] | | | | | region, | | Fax: | | | | | without | | [phone] | | | | | neurogenic | [...] | | | | | | | [place] ARTHDSIS | | | | | | [...] | | | | | | ION [place] | | | | | | | [...] | | | | | | SEG [place] | | | | | | | [...] + + | 07/02/ | Hospital | [facility] | Frandy Teresa, | Degenerative disc | | 2013 - | Encounter | MED CTR SURGICAL | DO [address] | disease, lumbar | | | | [address] | [place] [address] [place] | (Primary Dx); | | 07/05/ | | [place] [address] | [id number] | Diabetes mellitus | | 2013 | | [phone] | | ([facility]); Disturbance | | | | | | [...] Stable for discharge to SNF. DISPOSITION: SNF ([facility]) DISCHARGE MEDICATIONS Medications prior to admission that [...] Take 15 mg by mouth nightl y. [place]-3 Fatty Acids (FISH OIL CONCENTRATE) 1000 MG [...] PA-C - 07/04/2014 7:43 AM PDT [facility] PROGRESS NOTE Pt. Name/Age/: Cindy Arndt 58 y.o. 1955 Med. Record Number: [id number] Date of admission: 07/02/2014 Subjective: The patient [...] home medications. D/C plan: Home tomorrow with [facility]. D/c mari drain and riley cath today. D/c mold release worker. Patient Active Problem List Diagnosis LUMBAR DISC [...] - 07/03/2014 7:13 AM PDT . [facility] PROGRESS NOTE Pt. Name/Age/: Cindy Arndt 58 y.o. 1955 Med. Record Number: [id number] Date of admission: 07/02/2014 Subjective: The patient [...] Electronically signed by: Chris Nicole, 07/03/2014 7:13 [facility] on Smith, KRIS - 07/03/2014 6:50 [...] signed by: Frandy Teresa DO, 07/02/2014 11:15 [facility] by Frandy Teresa DO at 06/2014 11:15 AM PDTFrandy Teresa DO - 07/02/2014 11:15 AM [id number] [facility] [place], [place] [id number] FAX: NEUROSURGERY HISTORY AND PHYSICAL EXAMINATION CHIEF [...] Take 15 mg by mouth earnestine eldridge. [place]-3 Fatty Acids (FISH OIL CONCENTRATE) 1000 MG [...] no apparent deficits with short or terminal operator memory. CRANIAL NERVES: II: Acuity is [...] Intrinsics 5 5 Ulnar Intrinsics 5 5 Entry Manager Strength 5 5 Hip Flexion 5 [...] documented in this en counter Procedure Notes [facility] - 07/12/2014 12:00 AM PDT 14 1[facility]45 [facility] - 07/04/2014 12:00 AM PDT [facility] - 07/02/2014 12:00 AM PDT documented in this encounter Miscellaneous Notes Plan of Care - ONBASE SCAN [facility] - 07/12/2014 12:00 AM PDT iscellaneous - [facility] - 07/12/2014 12:00 AM PDTElec tronically signed by Mariah Schulte at 07/12/2014 1:45 PM PDTMiscellaneous - [facility] - 07/12/2014 12:00 AM PDT i scellaneous - [place] SCAN [facility] - 07/12/2014 12:00 AM PDT [...] and I will be going to a prison as I have 16 steps to my [...] TBD) Equipment Recommendations: tub bench;hand held shower head;unit clerk;comfort height toilet ( pt. has all necessary [...] might be different fro m the original. SNF FACILITY TRANSFER ORDERS Patient Name: Cindy Arndt Patient : 1955 Gender: female Date of Admission: 07/02/2014 Date of Discharge: 07/05/2014 Admitting Provider: Frandy Teresa DO Discharging Provider: Chris Nicole PA-C Consultants: none PCP: Natalee Andersen [facility] transferring to: [facility] Provider after transfer: PCP and Dr. Frandy Teresa CODE STATUS: [x] Attempt CPR [] Do not resuscitate If patient is pulseless and not breathing, RN/ADVERTISING MATERIAL DISTRIBUTOR may pronounce . Advanced Directives included: [] [...] for this patient. Diet: [] As tolerated GRINDER CHIPPER may upgrade or downgrade diet as condition Indicates. [x] RN may downgrade diet as indicated. Type: [] Continue current diet of: Diet and Supplements Diet DIET CONSISTENT CARBOHYDRATE Number of Occurrences: -1 Days [] Other: Consistency/Precautions: [] Whole [] Thin Liquids [] Cut-up [] [place] Thick [] Advanced Chopped [] Honey Thickened [] Chopped [] Advanced Ground [] 1:1 feedings [] Ground/Pureed [] Other: Tube Feedings: [] PEG [] GT [] JT [] NGT [] Formula type: ([employer] may change/substitute if indicated). [] Continuous Rate: [...] & Management for: ____same as above [] GRINDER CHIPPER Evaluation &Management for: [] Other: Wound/Skin Care: [...] Take 15 mg by mouth ni linda. [place]-3 Fatty Acids (FISH OIL CONCENTRATE) 1000 MG [...] (pediatric) IChris PA-C, certify that post hospital correction care is medically nec essary on a continuing basis for any of the conditions for which he/she received care during this hospitalization. Check one: [x] Skilled [] Intermediate Additional Orders/Instructions: Physician's signature:__Chris Nicole PA-C 07/05/2014 13:18 [facility] JMCTKarsten [facility] USE ONLY: [] Admitting orders [...] tolerate progressive walking and doing stairs du [facility] hospital stay due to multiple pain c/o. Attempted to see pt. 1145, however had just rec eived pain medication and requested PT return, SPL 9/10. At 1205 pt contacted PT for assist OOB due to left LE spasms and need for position change. Sitting at EOB on arrival, TERMINAL CLERK pres ent. Pt. donned LSO brace, stood [...] of endurance. When patient is walking in [facility] with a regular FWW she has to stop frequently and states she feels very weak, like sh e may fall. Patient lives alone. Outpatient prescriptions are filled at [facility] in [facility]. Electronically signed by: Franca Narvaez RN 07/05/2014 10:43 lan of Adilene Layne Rivers - 07/05/2014 10:39 AM PDTFaxed referral to Gabriela Stout and Lidia Tran. [place] : [id number] and [place]: [id number] Electronically signed by: Layne Collado 07/05/2014 10:40 [...] TBD) Equipment Recommendations: tub bench;hand held shower head;unit clerk;comfort height toilet ( pt. has all necessary equipment) Planned Interventions: ADL retraining;transfer training Patient Status/Goals Reflects last filed data of patient status; may be from multiple contributors. Grooming: Status: did not occur today Assist: Utilizes: STG: Status: New Goal:modified independent LTG: Status: Goal: UE Dressing: Status: SBA Assist: Utilizes: STG: Status: Goal: LTG: Status: Goal: LE Dressing: Status: SBA Utilizes: unit clerk STG: Status: New Goal: modified independent LTG: [...] bed mobil ity. Pt has been using COURT TRANSCRIBER and pain pills during the night. Zofran [...] by herself in a small apartment in [place]. Patient states she has her apartment set [...] to come from [facility] [place]. She states the Said she might benefit [facility] upon discharge. She would like me to contact [facility] to giv e them a heads up. I called and spoke to Summer at [facility] , told her patients PCP [...] Pt. resting in bed on arrival, used COURT TRANSCRIBER x 2 during session. SPL 5/10. Pt. hoping to urinate director smb sales to straight cath. Sidelying to sit at [...] TBD) Equipment Recommendations: tub bench;hand held shower head;unit clerk;comfort height toilet ( pt. has all necessary [...] & Review . Outcome: Progressing Pt using COURT TRANSCRIBER and PO pain pills, c/o numbness on [...] and on a continuous oximeter for her COURT TRANSCRIBER. She was unable to do her IS because o f the medications. She has the IS at bedside with a goal of 2400. She did not require additi onal respiratory care throughout the evening. p Note - Frandy Teresa, - 07/02/2014 2:25 PM PDTDATE: 07/02/2014 SURGEON: Frandy Teresa MD. DRUPAL WEB DEVELOPER: ZANE Oh PREOPERATIVE DIAGNOSES 1. Spondylolisthesis, L5-S1. [...] x 26 mm Capstone PEEK cage from [employer] was chosen. It was filled with Infus [...] Note Cindy Arndt 58 y.o. female 1955 [id number] Proc. Date 07/02/2014 Preop Dx Spondylolisthesis L5-S1 Postop Dx same Procedure Procedure(s):MIS L5-S1 TRANSFORAMINAL LUMBAR INTERBODY FUSION Anesthesia General Surgeon Frandy Teresa DO Golf Manager ZANE Oh EBL 100 mL Findings Findings consistent with scheduled procedure. No other abnormalities found. Complications none Specimens * No specimens in log * Drains Electronically signed by: Frandy Teresa DO 07/02/2014 14:22 [facility] documented in this en counter Plan [...] [address] | | | | | | [place] [address] | | | | | | [phone] | | | | | | | | +--------+ + + + + | 06/26/ | Office | Cardiology | Dora De La Torre | | | 2020 | Visit | | [address] | | | | | | [address] | | | | | | [place] [address] | | | | | | [phone] | | | | | | | [...] + | [facility] | [address] | [place] | [phone] | | [facility] | | [address] | | | - LABORATORY | | | | + + + + + | [facility] | [address] | [place] | | | [facility] | | [id number] | | | - LABORATORY | [...] + | [facility] | [address] | [place], [place] | [phone] | | [facility] | | [address] | | | - LABORATORY | | | | + + + + + | [facility] | [address] | [place], [place] | | | [facility] | | [id number] | | | - LABORATORY | [...] [address] | [place] | [phone] | | [facility] | | [address] | | | - LABORATORY | | | | + + + + + | [address] | [address] | [place], [place] | | | [facility] | | [phone] | | | - LABORATORY | [...] + | [facility] | [address] | [place] | [phone] | | [facility] | | [address] | | | - LABORATORY | | | | + + + + + | [facility] | [address] | [place], [place] | | | [facility] | | [address] | | | - LABORATORY [...] [address] | [place] | [phone] | | [facility] | | [address] | | | - LABORATORY | | | | + + + + + | [address] | [address] | [place] | | | [facility] | | [id number] | | | - LABORATORY | [...] + | [facility] | [address] | [place] | [phone] | | [facility] | | [address] | | | - LABORATORY | | | | + + + + + | [facility] | [address] | [place], [place] | | | [facility] | | [address] | | | - LABORATORY [...] [address] | [place] | [phone] | | [facility] | | [address] | | | - LABORATORY | | | | + + + + + | [address] | [address] | [place] | | | [facility] | | [address], [facility] | | | - LABORATORY | [...] + | [facility] | [address] | [place], [place] | [phone] | | [facility] | | [address] | | | - LABORATORY | | | | + + + + + | [facility] | [address] | [place], [place] | | | [facility] | | [phone] [place] [address] | | | - LABORATORY | | [...] + | [facility] [facility] | [address] | [place], [place] | [phone] | | [facility] | | [address] | | | - LABORATORY | | | | + + + + + | [facility] [facility] | [address] | [place], [place] | | | [facility] | | [phone] [place] [address] | | | - LABORATORY | | [...] | of hardware for posterior fusion from F3sdprjje S1 with interbody hardware at L5-S1. The [...] + | MISCELLANEOUS LAB | | | [phone] | + +---------+ + + | MISCELANIOUS LAB | | | [phone] | + +---------+ + + POC Glucose [...] + | [facility] | [address] | [place] | [phone] | | [facility] | | [address] | | | - LABORATORY | | | | + + + + + | [facility] | [address] | [place] | | | [facility] | | [address], [facility] | | | - LABORATORY | [...] + | [facility] | [address] | [place], [place] | [phone] | | [facility] | | [address] | | | - LABORATORY | | | | + + + + + | [facility] | [address] | [place], [place] | | | [facility] | | [id number] | | | - LABORATORY | [...] [address] | [place] | [phone] | | [facility] | | [address] | | | - LABORATORY | | | | + + + + + | [address] | [address] | [place] | | | [facility] | | [phone] | | | - LABORATORY | [...] + | [facility] | [address] | [place], [place] | [phone] | | [facility] | | [address] | | | - LABORATORY | | | | + + + + + | [facility] | [address] | [place], [place] | | | [facility] | | [address] | | | - LABORATORY | [...] [address] | [place] | [phone] | | [facility] | | [address] | | | - LABORATORY | | | | + + + + + | [facility] | [address] | [place] | | | [facility] | | [phone] | | | - LABORATORY | [...] | | [facility] | | [address] | | | - BLOOD BANK | [...] + +---------+ +---+---+---+ | morphine 5 mg/mL COURT TRANSCRIBER syringe | New Bag | 07/02/20 | [...] | | | | Dose(mg): 0, Starting COURT TRANSCRIBER | | | | | | | Dose(mg): 1, Incremental Increase | | | | | | | COURT TRANSCRIBER Dose(mg): 0.5, Maximum COURT TRANSCRIBER | | | | | | | [...]
--- OUTSIDE RECORDS SUMMARY | ~2020-04-28 | XMS | Encounter Summary ---
Demographics + + + | Address | [address] | | | [place] [address] | + + + | Home Phone [...] [place] | | | | | [address] | | + + + + + Care Team Providers + +------+ + | Care Police Communications Operator Name | Role | Phone | [...] [address] | | | | | | [place], [place] | | | | | | [address] | | | +--------+ + + + [...]
--- OUTSIDE RECORDS SUMMARY | ~2020-04-28 | XMS | Encounter Summary ---
Demographics + + + | Address | [address] | | | [place] [address] | + + + | Home Phone [...] [place] | | | | | [address] | | + + + + + Care Team Providers + +------+ + | Care Diamond Wheel Edger Name | Role | Phone | [...] | 09/26/ | Refill | [facility] | Frandy Teresa, | Medication Refill | | 2013 | | NEUROSURGERY [address] | DO [address] | | | | | [facility] [address] | [address] [place], [place] | | | | | [place], [place] | [id number] | | | | | [address] | | | | | | [phone] | | | +--------+--------+ + + + [...] will come today. [facility] Megan [facility]reiber RN at [...] [address] | | | | | | [place] [address] | | | | | | [phone] | | | | | | | | +--------+ + + + + | 06/26/ | Office | Cardiology | Dora De La Torre | | | 2019 | Visit | | [address] | | | | | | [address] [place] | | | | | | [facility] [address] | | | | | | [phone] | | | | | | | | +--------+ + + + + documented as of this encounter Visit Diagnoses Not on filedocumented in this encounter"
--- OUTSIDE RECORDS SUMMARY | ~2020-04-28 | XMS | Encounter Summary ---
Demographics + + + | Address | [address] | | | [place] [address] | + + + | Home Phone [...] [place] | | | | | [address] | | + + + + + Care Team Providers + +------+ + | Care Debit Agent Name | Role | Phone | [...] | | | [place], | [place] [address] | | | | | [place] [address] | [phone] | | | | | [phone] | | | +--------+--------+ + + + [...] [address] | | | | | | [place] [address] | | | | | | [phone] | | | | | | | | +--------+ + + + + | 06/26/ | Office | Cardiology | Dora De La Torre | | | 2020 | Visit | | [address] | | | | | | [address] | | | | | | [place] [address] | | | | | | [phone] | | | | | | | | +--------+ + + + + documented as of this encounter Visit Diagnoses + + | Diagnosis | + + | Essential hypertension - Primary Unspecified essential hypertension | + + documented in this encounter"
--- OUTSIDE RECORDS SUMMARY | ~2020-04-28 | XMS | Encounter Summary ---
Demographics + + + | Address | [address] | | | [place] [address] | + + + | Home Phone [...] [place], [place] | | | | | [address] | | + + + + + Care Team Providers + +------+ + | Care Agency Director Name | Role | Phone | + +------+ + PCP | Unavailable | + +------+ + Encounter Details +--------+ + + + + | Date | Type | Department | Care Team | Description | +--------+ + + + + | 12/31/ | Hospital | [facility] | | | | 1996 | Encounter | MED CTR XRAY [address] | | | | | [address] | | | | | | [place] [address] | | | | | | [phone] | | | +--------+ + + + [...] | | | | | [place] [address] | | | | | | [phone] | | | | | | | | +--------+ + + + + | 06/26/ | Office | Cardiology | Dora De La Torre | | | 2019 | Visit | | [address] | | | | | | [address] | | | | | | [place] [address] | | | | | | [phone] | | | | | | | | +--------+ + + + + documented as of this encounter Visit Diagnoses Not on filedocumented in this encounter"
--- OUTSIDE RECORDS SUMMARY | ~2020-04-28 | XMS | Encounter Summary ---
Demographics + + + | Address | [address] | | | [place] [address] | + + + | Home Phone [...] [place] | | | | | [address] | | + + + + + Care Team Providers + +------+ + | Care Support Associate Name | Role | Phone | + +------+ + | Basim Bolanos MD | PCP | | + +------+ + Encounter Details +--------+ + + + + | Date | Type | Department | Care Team | Description | +--------+ + + + + | 02/22/ | Abstract | [facility] [place] | [facility], | | | 2012 | | GASTROENTEROLOGY | [address] | | | | | [address] | [address] | | | | | [address] [place], [place] | [place], [place] | | | | | [address] | [address] | | | | | [phone] | | | +--------+ + + + [...] | | | | | [place] [address] | | | | | | [phone] | | | | | | | | +--------+ + + + + | 06/26/ | Office | Cardiology | Dora De La Torre | | | 2019 | Visit | | [address] | | | | | | [address] | | | | | | [place] [address] | | | | | | [phone] | | | | | | | | +--------+ + + + + documented as of this encounter Visit Diagnoses Not on filedocumented in this encounter"
--- OUTSIDE RECORDS SUMMARY | ~2020-04-28 | XMS | Encounter Summary ---
Demographics + + + | Address | [address] | | | [place] [address] | + + + | Home Phone [...] [place] | | | | | [address] | | + + + + + Care Team Providers + +------+ + | Care Food And Nutrition Teacher Name | Role | Phone | [...] + | 03/06/ | Office | [facility] | Deon Gonzales | ROGERS (obstructive | | 2012 | Visit | SLEEP DISORDER [address] | MD [address] | sleep apnea) | | | | [address] [place] | [address] [place] | (Primary Dx); | | | | [place] [address] | [place] [address] | Sleepiness | | | | [phone] | [phone] | | | | | | | [...] differen t from the original. 03/06/13 1000 Blount Sleepiness Scale Sitting and reading 3 Watching [...] by mouth Daily., Disp: , Rfl: ; [place]-3 Fatty Acids (FISH OIL CONCENTRATE) 1000 MG [...] th is encounter [facility]iscellaneous Notes [facility] 03/06/2013 12:00 AM PDT iscellaneous - [facility] - 03/06/2013 12:00 AM PDTEle ctronically [...] | | | | | [place] [address] | | | | | | [phone] | | | | | | | | +--------+ + + + + | 06/26/ | Office | Cardiology | Dora De La Torre | | | 2019 | Visit | | [address] | | | | | | [address] | | | | | | [place] [address] | | | | | | [phone] | | | | | | | | +--------+ + + + + documented as of this encounter Visit Diagnoses + + | Diagnosis | + + | ROGERS (obstructive sleep apnea) - Primary Obstructive sleep apnea (adult) (pediatric) | + + | Sleepiness Other alteration of consciousness | + + documented in this encounter"
--- OUTSIDE RECORDS SUMMARY | ~2020-04-28 | XMS | Encounter Summary ---
Demographics + + + | Address | [address] | | | [place] [address] | + + + | Home Phone [...] [place] | | | | | [address] | | + + + + + Care Team Providers + +------+ + | Care Cardiopulmonary Technologist Name | Role | Phone | + +------+ + | Basim Bolanos MD | PCP | | + +------+ + Encounter Details +--------+ + + + + | Date | Type | Department | Care Team | Description | +--------+ + + + + | 04/18/ | Abstract | [facility] [place] | [facility], | | | 2012 | | GASTROENTEROLOGY | [address] | | | | | [address] | [address] | | | | | [address] [place], [place] | [place], [place] | | | | | [address] | [address] | | | | | [phone] | | | +--------+ + + + [...] | | | | | [place] [address] | | | | | | [phone] | | | | | | | | +--------+ + + + + | 06/26/ | Office | Cardiology | Dora De La Torre | | | 2020 | Visit | | [address] | | | | | | [address] | | | | | | [place] [address] | | | | | | [phone] | | | | | | | | +--------+ + + + + documented as of this encounter Visit Diagnoses Not on filedocumented in this encounter"
--- OUTSIDE RECORDS SUMMARY | ~2020-04-28 | XMS | Encounter Summary ---
Demographics + + + | Address | [address] | | | [place] [address] | + + + | Home Phone [...] [place] | | | | | [address] | | + + + + + Care Team Providers + +------+ + | Care Set Up Inspector Name | Role | Phone | [...] | | | | | Disturbance | Frnady Simons DO | [address] | | | | | of skin | [address] | [place], | | | | | sensation | [address] | [place] | | | | | Arthrodesis | [place], [place] | [address] | | | | | status Left | [address] | Phone: | | | | | leg | Phone: | [phone] | | | | | weakness | [phone] | Fax: | | | | | Procedures | Fax: | [phone] | | | | | MRI Lumbar | [phone] | | | | | | Spine [...] [address] | [address] [place], [place] | | | | | [place], [place] | [id number] | | | | | [address] | | | | | | [phone] | | | +--------+ + + + [...] scheduled samson for her MRI here at [facility] on 08/19. SHAYNE ARAGON eleFrandy Diaz DO [...] [address] | | | | | | [place] [address] | | | | | | [phone] | | | | | | | | +--------+ + + + + | 06/26/ | Office | Cardiology | Dora De La Torre | | | 2020 | Visit | | [address] | | | | | | [address] | | | | | | [place] [address] | | | | | | [phone] | | | | | | | [...] the round structure with high T1 and [id number] in the right L3 vertebral | | [...] + | MISCELLANEOUS LAB | | | [phone] | + +---------+ + + | MISCELANIOUS LAB | | | [phone] | + +---------+ + + documented in [...]
--- OUTSIDE RECORDS SUMMARY | ~2020-04-28 | XMS | Encounter Summary ---
Demographics + + + | Address | [address] | | | [place] [address] | + + + | Home Phone [...] [place] | | | | | [address] | | + + + + + Care Team Providers + +------+ + | Care Gauge And Instrument Inspector Name | Role | Phone | + +------+ + | Thierry Fry MD | PCP | | + +------+ + Encounter Details +--------+ + + + + | Date | Type | Department | Care Team | Description | +--------+ + + + + | 03/06/ | Hospital | [facility] | Katharine Cardona PA-C | Essential | | 2015 | Encounter | MED CTR LABORATORY | [address] | hypertension | | | | [address] [place] | [place] [address] | | | | | [place], [place] | [phone] | | | | | [address] | | | | | | [phone] | | | +--------+ + + + [...] 0 | | | | (VITAMIN D-3) 11800 | mouth Once a week. | | [...] + + + +---------+ + + | [place]-3 Fatty | Take 1,000 mg by | 60 each | 5 | 03/09/20 | | | Acids (FISH OIL | mouth 2 times daily. | | | 15 | 9 | | CONCENTRATE) 1000 MG | | | | | | | CAPS | | | | | | + + + +---------+ + + | [place]-3 Fatty | Take 1,000 mg by | [...] F | | | | | | [place] [address] | | | | | | [phone] | | | | | | | | +--------+ + + + + | 06/26/ | Office | Cardiology | Isacc De La Torre | | | 2020 | Visit | | [address] | | | | | | [address] | | | | | | [place] [address] | | | | | | [phone] | | | | | | | [...] 12 | 7 - 18 mg/dL | [place] | | | | | | [facility] | | | | | [facility] | | | | | | [facility] - | | | | | | LABORATORY | | + + + + + + | Creatinine | 0.66 | 0.60 - 1.30 | [place] | | | | | mg/dL | [facility] | | | | | | [facility] | | | | | | CENTER - | | | | | | LABORATORY | | + + + + + + | eGFR if not | >60Comment: GLOMERULAR | >=60 | [place] | | | | FILTRATION | mL/min/1.73m2 | [facility] | | | ECUADOREAN | RATE,ESTIMATED | | MEDICAL | | | | mL/min/1.34u3Sveq than | | CENTER - | | [...] + | [address] | [address] | [place], [place] | [phone] | | [facility] | | [address] | | | - LABORATORY | | | | + + + + + documented in this encounter Visit Diagnoses + + | Diagnosis | + + | Essential hypertension Unspecified essential hypertension | + + documented in this encounter"
--- OUTSIDE RECORDS SUMMARY | ~2020-04-28 | XMS | Clinical Summary ---
Demographics + + + | Address | [address] | | | [place] [address] | + + + | Home Phone [...] [place] | | | | | [address] | | + + + + + Care Team Providers + +------+ + | Care Armoured Corps Officer Name | Role | Phone | + +------+ + PCP | Unavailable | + +------+ + Source Comments EDWARD is fully live on both [facility] Ambulatory and [facility] InPatient.[facility] Allergies Not on File Medications Not [...] | [facility]ICA | xxxxxxxxxx | 02/22/20 | [phone] | [address] | Medica | | | RE A & | | 15-Pre | 1 | [address] | re | | | B | | sent | | [place] | | | | | | | | [address] | | + +--------+ +--------+ + +--------+ + +--------+ +--------+ + + | Guarantor Name | Accoun | Relation to | Date | Phone | Billing Address | | | t Type | Patient | of | | | | | | | | | | + +--------+ +--------+ + + | CINDY ARNDT | Person | Self | [birth year] | [address] | | al/Fam | | 1955 | [phone] | [address] [place] | | | devonte | | | 5 (Home) | [address] | + +--------+ +--------+ + +"
--- OUTSIDE RECORDS SUMMARY | ~2020-04-28 | XMS | Encounter Summary ---
Demographics + + + | Address | [address] | | | [place] [address] | + + + | Home Phone [...] [place], [place] | | | | | [address] | | + + + + + Care Team Providers + +------+ + | Care Art Glass Setter Name | Role | Phone | + +------+ + PCP | Unavailable | + +------+ + Encounter Details +--------+ + + + + | Date | Type | Department | Care Team | Description | +--------+ + + + + | 12/06/ | Hospital | [facility] | | | | 1994 | Encounter | MED CTR LABORATORY | | | | | | [address] | | | | | | [place] | | | | | | [address] | | | | | | [phone] | | | +--------+ + + + [...] | | | | | [place] [address] | | | | | | [phone] | | | | | | | | +--------+ + + + + | 06/26/ | Office | Cardiology | Dora De La Torre | | | 2020 | Visit | | [address] M[address] | | | | | | [address] | | | | | | [place] [address] | | | | | | [phone] | | | | | | | | +--------+ + + + + documented as of this encounter Visit Diagnoses Not on filedocumented in this encounter"
--- OUTSIDE RECORDS SUMMARY | ~2020-04-28 | XMS | Encounter Summary ---
Demographics + + + | Address | [address] | | | [place] [address] | + + + | Home Phone [...] [place] | | | | | [address] | | + + + + + Care Team Providers + +------+ + | Care Primary Care Nurse Practitioner Name | Role | Phone [...] + + | 09/10/ | Documentati | [facility] | Katharine Moncada, | Other (urgent | | 2019 | on | CARDIOLOGY [place] | Technologist | report) | | | | [address] | | | | | | [place] | | | | | | [address] | | | | | | [phone] | | | +--------+ + + + [...] | | | | | [place] [address] | | | | | | [phone] | | | | | | | | +--------+ + + + + | 06/26/ | Office | Cardiology | Dora De La Torre | | | 2020 | Visit | | [address] | | | | | | [address] | | | | | | [place] [address] | | | | | | [phone] | | | | | | | | +--------+ + + + + documented as of this encounter Visit Diagnoses Not on filedocumented in this encounter"
--- OUTSIDE RECORDS SUMMARY | ~2020-04-28 | XMS | Encounter Summary ---
Demographics + + + | Address | [address] | | | [place] [address] | + + + | Home Phone [...] [place] | | | | | [address] | | + + + + + Care Team Providers + +------+ + | Care Naprapath Name | Role | Phone | + [...] [address] | | | | | [address] [place], [place] | [place], [place] | | | | | [address] | [address] | | | | | [phone] | | | +--------+ + + + [...] | | | | | [place] [address] | | | | | | [phone] | | | | | | | | +--------+ + + + + | 06/26/ | Office | Cardiology | Dora De La Torre | | | 2019 | Visit | | [address] M[address] | | | | | | [address] | | | | | | [place] [address] | | | | | | [phone] | | | | | | | | +--------+ + + + + documented as of this encounter Visit Diagnoses Not on filedocumented in this encounter"
--- OUTSIDE RECORDS SUMMARY | ~2020-04-28 | XMS | Encounter Summary ---
Demographics + + + | Address | [address] | | | [place] [address] | + + + | Home Phone [...] [place], [place] | | | | | [address] | | + + + + + Care Team Providers + +------+ + | Care Drier Feeder Name | Role | Phone | + +------+ + PCP | Unavailable | + +------+ + Encounter Details +--------+ + + + + | Date | Type | Department | Care Team | Description | +--------+ + + + + | 04/01/ | Hospital | [facility] | | | | 1998 | Encounter | MED CTR XRAY [address] | | | | | | [address] | | | | | | [place] [address] | | | | | | [phone] | | | +--------+ + + + [...] | | | | | [place] [address] | | | | | | [phone] | | | | | | | | +--------+ + + + + | 06/26/ | Office | Cardiology | Dora De La Torre | | | 2019 | Visit | | [address] | | | | | | [address] | | | | | | [place] [address] | | | | | | [phone] | | | | | | | | +--------+ + + + + documented as of this encounter Visit Diagnoses Not on filedocumented in this encounter"
--- OUTSIDE RECORDS SUMMARY | ~2020-04-28 | XMS | Encounter Summary ---
Demographics + + + | Address | [address] | | | [place] [address] | + + + | Home Phone [...] [place], [place] | | | | | [address] | | + + + + + Care Team Providers + +------+ + | Care Wharf Laborer Name | Role | Phone | + +------+ + PCP | Unavailable | + +------+ + Encounter Details +--------+ + + + + | Date | Type | Department | Care Team | Description | +--------+ + + + + | 03/11/ | [facility] | [facility] | Deon Gonzales | | | 2004 | Encounter | MED CTR SLEEP | MD Laure[address] | | | | | [place] [address] | [address] [facility] | | | | | [place], [place] | [place] [address] | | | | | [address] | [phone] | | | | | [phone] | | | +--------+ + + + [...] | | | | | [place] [address] | | | | | | [phone] | | | | | | | | +--------+ + + + + | 06/26/ | Office | Cardiology | Dora De La Torre | | | 2019 | Visit | | [address] | | | | | | [address] | | | | | | [place] [address] | | | | | | [phone] | | | | | | | | +--------+ + + + + documented as of this encounter Visit Diagnoses Not on filedocumented in this encounter"
--- OUTSIDE RECORDS SUMMARY | ~2020-04-28 | XMS | Encounter Summary ---
Demographics + + + | Address | [address] | | | [place] [address] | + + + | Home Phone [...] [place] | | | | | [address] | | + + + + + Care Team Providers + +------+ + | Care Medical Service Technician Name | Role | Phone [...] | | | | | mellitus, | [address] | [place] | | | | | controlled | Phone: | [address] | | | | | (HCC) | [phone] | Phone: | | | | | History of | Fax: | [phone] | | | | | gastric | [phone] | Fax: | | | | | restrictive | | [phone] | | | | | surgery | [...] | Required | | hypertension | [address] | | | | | Lumbar | AVE [place] | [address] | | | | | radiculopath | [place], [place] | AVE | | | | | y Type 2 | [address] | [place] | | | | | diabetes | Phone: | [address] | | | | | mellitus, | [phone] | Phone: | | | | | controlled | Fax: | [phone] | | | | | (HCC) | [phone] | Fax: | | | | | Obesity, | | [phone] | | | | | Class III, [...] | | [facility] & Katharine BUCIO in [place]. 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 Ask [facility] if they think it might be helpful [...] Cont your meds as prescribed. F/U with [facility] as scheduled Neuropathy Continue gabapentin. May consider increase if pain is not controlled. May benefit from switching from Paxil to one of the SNRIs or TCAs for analgesic effects, ho manju, she is doing so well on her current regimen it may not be worth making any changes an d find alternate ways to deal with the pain. Would be worth discussing with [facility] Psych Back Pain Will refer to water therapy (aqua fitness) at [facility] as request ed. [...] Colonoscopy procedures 4. Schizoaffective disorder, bipolar type ([facility]) 5. Neuropathy Vitamin B-12 6. BACK PAIN, LUMBAR, WITH RADICULOPATHY Ambulatory referral to Physical Therapy 7. ROGERS on CPAP 8. Stroke ([facility]) 9. Environmental and seasonal allergies fluticasone (FLONASE) 50 mcg/nasal spray 10. Gastroesophageal reflux disease without esophagitis dexlansoprazole (DEXILANT) 60 mg D R capsule 11. History of gastric restrictive surgery Vitamin D, 25-Hydroxy Nutrition Services - External - AMB Referral 12. Obesity, Class III, BMI 40-49.9 (morbid obesity) ([facility]) Ambulatory referral to Physical Therapy Nutrition Services - External - AMB Referral 13. Type 2 diabetes mellitus, controlled ([facility]) Ambulatory referral to Physical Therapy Nutrition Services [...] Cont your meds as prescribed. [facility] scheduled Neuropathy Continue gabapentin. May [...] the pain. Would be worth discussing with [facility] professional. Back Pain Will refer to water therapy (aqua fitness) at [facility] as request ed. Cont home exercise, [...] plan. The above note was dictated using Canines voice recognition software. It may have not been proofread in entirety. Minor errors in grammar may occur. CHIEF COMPLAINT Chief Complaint Patient presents with Establish Care Presents to establish care. Former patient of [facility] in [place]. Other Possible stroke January 2015. Is now [...] auditory, at 36. 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 She is now very well controlled on Saphris, Depakote, and Paxi l. She is followed by [facility] in [place]. She has DM2 that is well controlled [...] is now being followe d by Dr Newmna. Since she has multiple stroke risk factors, [...] DO; Location: [facility] OR SOCIAL HISTORY History Social [...] mg by mouth Daily. Cholecalciferol (VITAMIN D-3) 31423 units CAPS Oral Take 50,000 Units by [...] Oral Take 10 mg by mouth nightly. [place]-3 Fatty Acids (FISH OIL CONCENTRATE) 1000 MG [...] [address] | | | | | | [place] [address] | | | | | | [phone] | | | | | | | | +--------+ + + + + | 06/26/ | Office | Cardiology | Dora De La Torre | | | 2019 | Visit | | [address] | | | | | | [address] | | | | | | [place] [address] | | | | | | [phone] | | | | | | | [...] | | | | | | controlled ([facility]) | | | | | | Obesity, Class III, | | | | | | BMI 40-49.9 (morbid | | | | | | obesity) ([facility]) | | + + +--------+ + + [...] | obesity) ([facility]) | | + + +--------+ + + [...] | | | FILTRATION | mL/min/1.73m2 | [facility] | | | [place] | RATE,ESTIMATED | | MEDICAL | | | | mL/min/1.66q9Oxmg than | | CENTER - | | [...] [address] | [place] | [phone] | | [facility] | | [address] | | | - LABORATORY | | [...]
--- OUTSIDE RECORDS SUMMARY | ~2020-04-28 | XMS | Encounter Summary ---
Demographics + + + | Address | [address] [facility] [address] | | | [place] [address] | + + + | Home Phone [...] [place] | | | | | [address] | | + + + + + Care Team Providers + +------+ + | Care Apprentice Plant Attendant Name | Role | Phone [...] [id number] | | | | | | [place], [place] | | | | | | [address] | | | | | | [phone] | | | +--------+ + + + [...] [facility] | [address] | [place] [address] | | | PATHOLOGY | [address] [...] Re | | | | | | [id number] | | | | + + + + + + + + | Specimen | + + | | + + + + + + + | Performing | Address | City/State/Zipcode | Phone Number | | Organization | | | | + + + + + | [facility] | [address] | [place] [address] | | | PATHOLOGY | [address] [...] Re | | | | | | [phone] | | | | + + + + + + + + | Specimen | + + | | + + + + + + + | Performing | Address | City/State/Zipcode | Phone Number | | Organization | | | | + + + + + | [facility] | [address] | [place] [address] | | | PATHOLOGY | [address] [...] Re | | | | | | 271040 | | | | + + + + + + + + | Specimen | + + | | + + + + + + + | Performing | Address | City/State/Zipcode | Phone Number | | Organization | | | | + + + + + | [facility] | [address] | [place] [address] | | | PATHOLOGY | [address] [...] Re | | | | | | [address] | | | | + + + + + + + + | Specimen | + + | | + + + + + + + | Performing | Address | City/State/Zipcode | Phone Number | | Organization | | | | + + + + + | [facility] | [address] | [place] [address] | | | PATHOLOGY | [address] | | | + + + + + documented in this encounter Visit Diagnoses Not on filedocumented in this encounter"
--- OUTSIDE RECORDS SUMMARY | ~2020-04-28 | XMS | Encounter Summary ---
Demographics + + + | Address | [address] | | | [place] [address] | + + + | Home Phone [...] [place], [place] | | | | | [address] | | + + + + + Care Team Providers + +------+ + | Care Talent Sourcer Name | Role | Phone | + +------+ + PCP | Unavailable | + +------+ + Encounter Details +--------+ + + + + | Date | Type | Department | Care Team | Description | +--------+ + + + + | 05/23/ | Hospital | [facility] | | | | 1991 | Encounter | MED CTR XRAY [address] | | | | | | [address] | | | | | | [place] [address] | | | | | | [phone] | | | +--------+ + + + [...] | | | | | [place] [address] | | | | | | [phone] | | | | | | | | +--------+ + + + + | 06/26/ | Office | Cardiology | Dora De La Torre | | | 2019 | Visit | | [address] | | | | | | [address] | | | | | | [place] [address] | | | | | | [phone] | | | | | | | | +--------+ + + + + documented as of this encounter Visit Diagnoses Not on filedocumented in this encounter"
--- OUTSIDE RECORDS SUMMARY | ~2020-04-28 | XMS | Encounter Summary ---
Demographics + + + | Address | [address] | | | [place] [address] | + + + | Home Phone [...] [place], [place] | | | | | [address] | | + + + + + Care Team Providers + +------+ + | Care Civil Service Clerk Name | Role | Phone | + +------+ + PCP | Unavailable | + +------+ + Encounter Details +--------+ + + + + | Date | Type | Department | Care Team | Description | +--------+ + + + + | 02/28/ | Hospital | [facility] | Deon Gonzales | | | 2012 | Encounter | MED CTR SLEEP | MD Laureano [address] | | | | | [place] [address] | [facility] | | | | | [place], [place] | [place] [address] | | | | | [address] | [phone] | | | | | [phone] | | | +--------+ + + + [...] - 02/29/2012 2:36 PM PDTDATE: 02/29/2012 cc: [facility] Sleep Center Deon Gonzales Jr., MD, [facility] POSITIVE PRESSURE TITRATION STUDY CLINICAL INFORMATION: [...] the patient scored 18 points on the [place] Sleepiness Scale, which endorses a severe degree [...] advised. Deon [place] Jr., MD, FAASM Diplomate [place] Board of Internal Medicine Diplomate in Sleep Medicine Film Developing Machine Operator, [facility] Clinical Silica Spray Mixer Katelin joy [facility], [facility] JOB #: [id number] EXT JOB #:[id number] EDITED: 03/03/2012 07:26 <Electronically Signed by Deon [...] [address] | | | | | | [place] [address] | | | | | | [phone] | | | | | | | | +--------+ + + + + | 06/26/ | Office | Cardiology | StefanielarryDora | | | 2019 | Visit | | [address] | | | | | | [address] | | | | | | [place] [address] | | | | | | [phone] | | | | | | | | +--------+ + + + + documented as of this encounter Visit Diagnoses Not on filedocumented in this encounter"
--- OUTSIDE RECORDS SUMMARY | ~2020-04-28 | XMS | Encounter Summary ---
Demographics + + + | Address | [address] | | | [place] [address] | + + + | Home Phone [...] [place] | | | | | [address] | | + + + + + Care Team Providers + +------+ + | Care Rollway Worker Name | Role | Phone | [...] + | 06/20/ | Telephone | [facility] | Frandy Teresa, | Other (surgery | | 2013 | | NEUROSURGERY [address] | DO [address] | reminder ) | | | | [address] | [address] [place], [place] | | | | | [place], [place] | [id number] | | | | | [address] | | | | | | [phone] | | | +--------+ + + + [...] [address] | | | | | | [place] [address] | | | | | | [phone] | | | | | | | | +--------+ + + + + | 06/26/ | Office | Cardiology | oDra De La Torre | | | 2019 | Visit | | [address] | | | | | | [address] | | | | | | [place] [address] | | | | | | [phone] | | | | | | | | +--------+ + + + + documented as of this encounter Visit Diagnoses Not on filedocumented in this encounter"
--- OUTSIDE RECORDS SUMMARY | ~2020-04-28 | XMS | Encounter Summary ---
Demographics + + + | Address | [address] | | | [place] [address] | + + + | Home Phone [...] [place] | | | | | [address] | | + + + + + Care Team Providers + +------+ + | Care Fan Installer Name | Role | Phone | [...] + + | 04/30/ | Office | [facility] | Russell Alfaro PA | ROGERS on CPAP (Primary | | 2015 | Visit | SLEEP DISORDER [address] | [address] | Dx) | | | | [address] | [place] | | | | | [place] [address] | [address] | | | | | [phone] | | | +--------+---------+ + + + [...] encounter Progress Notes Gail Cadet, Master of [employer] - 04/30/2015 11:12 AM PDTFormatting of this note might be khoi rivas from the original. 04/30/15 1100 [place] Depression Inventory-II Depression Score 9 - Minimal depression Insomnia Severity Index Insomnia Severity Index 13 [place] Sleepiness Scale Sitting and reading 3 Watching [...] appro priate paperwork. Thirty minutes were spent spoc-dw-[id number], with the majority of time spent i [...] [address] | | | | | | [place] [address] | | | | | | [phone] | | | | | | | | +--------+ + + + + | 06/26/ | Office | Cardiology | Dora De La Torre | | | 2020 | Visit | | [address] | | | | | | [address] | | | | | | [place] [address] | | | | | | [phone] | | | | | | | | +--------+ + + + + documented as of this encounter Visit Diagnoses + + | Diagnosis | + + | ROGERS on CPAP - Primary Obstructive sleep apnea (adult) (pediatric) | + + documented in this encounter"
--- OUTSIDE RECORDS SUMMARY | ~2020-04-28 | XMS | Encounter Summary ---
Demographics + + + | Address | [address] [facility] [address] | | | [place] [address] | + + + | Home Phone [...] [place] | | | | | [address] | | + + + + + Care Team Providers + +------+ + | Care Sample Carrier Name | Role | Phone | [...] | Transcriptions | + + | Interface, Rotary Cutter Feeder In - 11/04/2006 3:03 AM PST | | [address] | | [place], [place] [address] [facility] and | | ClinicsOPERATION RECORDMed [...] skin retractor was put in place. The [place] elevators wereused to separate the | | [...]
--- OUTSIDE RECORDS SUMMARY | ~2020-04-28 | XMS | Encounter Summary ---
Demographics + + + | Address | [address] [facility] [address] | | | [place] [address] | + + + | Home Phone [...] [place] | | | | | [address] | | + + + + + Care Team Providers + +------+ + | Care Toolsmith Name | Role | Phone | + [...] | | | | | | [place], | | | | | | [place] [address] | | | | | | [phone] | | | +--------+ + + + [...] | | + +---------+ + + | [facility] DEPARTMENT OF | | | | | RADIOLOGY | | | | + +---------+ + + documented in this encounter Visit Diagnoses Not on filedocumented in this encounter"
--- OUTSIDE RECORDS SUMMARY | ~2020-04-28 | XMS | Encounter Summary ---
Demographics + + + | Address | [address] | | | [place] [address] | + + + | Home Phone [...] [place] | | | | | [address] | | + + + + + Care Team Providers + +------+ + | Care Can Line Examiner Name | Role | Phone | [...] [place] | | | | | | [address] | | | | | | [phone] | | | +--------+ + + + [...] | | | | | [place] [address] | | | | | | [phone] | | | | | | | | +--------+ + + + + | 06/26/ | Office | Cardiology | Dora De La Torre | | | 2020 | Visit | | [address] | | | | | | [address] | | | | | | [place] [address] | | | | | | [phone] | | | | | | | | +--------+ + + + + documented as of this encounter Visit Diagnoses Not on filedocumented in this encounter"
--- OUTSIDE RECORDS SUMMARY | ~2020-04-28 | XMS | Encounter Summary ---
Demographics + + + | Address | [address] | | | [place] [address] | + + + | Home Phone [...] [place], [place] | | | | | [address] | | + + + + + Care Team Providers + +------+ + | Care Sterile Preparation Technician Name | Role | Phone | + +------+ + PCP | Unavailable | + +------+ + Encounter Details +--------+ + + + + | Date | Type | Department | Care Team | Description | +--------+ + + + + | 01/26/ | Hospital | [facility] | [place], | | | 2011 | Encounter | MED CTR XRAY [address] | MD [address] | | | | | [place] | [place] | | | | | [place] [address] | [address] | | | | | [phone] | | | +--------+ + + + [...] CANTU | | | | | | [place] [address] | | | | | | [phone] | | | | | | | | +--------+ + + + + | 06/26/ | Office | Cardiology | Dora De La Torre | | | 2019 | Visit | | [address] | | | | | | [place] | | | | | | [place] [address] | | | | | | [phone] | | | | | | | [...] Performed At | + + + | [facility] Diagnostic Imaging Department | [place] | | [address] [facility] [place] | [facility] | | BILATERAL KNEES, THREE VIEWS: [...] Transcribed | | | Date/Time: 01/27/2012 17:18 Office Professionals: | | | <Electronically Signed by Willie Perry MD> 01/27/12 8584 | | + + + + + | Procedure Note | + + | Juan, Rad Conversion - 11/30/2013 5:03 PM [facility] | | Diagnostic Imaging Department [address] [place] [address] | | BILATERAL KNEES, THREE VIEWS: 01/27/2012 [...] 17:12 | |Transcribed Date/Time: 01/27/2012 17:18 | |Office Professionals: | |<Electronically Signed by Willie Perry MD> 01/27/122253 | + + + +---------+ + + | Performing | Address | City/State/Zipcode | Phone Number | | Organization | | | | + +---------+ + + | [place] | | | | | [facility] | | | | + +---------+ + + documented in this encounter Visit Diagnoses Not on filedocumented in this encounter"
--- OUTSIDE RECORDS SUMMARY | ~2020-04-28 | XMS | Encounter Summary ---
Demographics + + + | Address | [address] | | | [place] [address] | + + + | Home Phone [...] [place] | | | | | [address] | | + + + + + Care Team Providers + +------+ + | Care Petroleum Products Sales Representative Name | Role | Phone [...] + + | 08/09/ | Clinical | [facility] | Desiree Peterson DO | Syncope, unspecified | | 2019 | Support | CARDIOLOGY [place] | [address] | syncope type | | | | [address] | [place], [place] | | | | | [place] [address] | [address] | | | | | [place] | | | | | | [address] | Dora De La Torre | | | | | [phone] | [address] | | | | | | [place] | | | | | | [place] [address] | | | | | | [phone] | | | | | | | [...] [place]ANTU | | | | | | [place] [address] | | | | | | [phone] | | | | | | | | +--------+ + + + + | 06/26/ | Office | Cardiology | Dora De La Torre | | | 2019 | Visit | | [address] | | | | | | [address] [address] | | | | | | [place] [address] | | | | | | [phone] | | | | | | | | +--------+ + + + + documented as of this encounter Visit Diagnoses + + | Diagnosis | + + | Syncope, unspecified syncope type | + + documented in this encounter"
--- OUTSIDE RECORDS SUMMARY | ~2020-04-28 | XMS | Encounter Summary ---
Demographics + + + | Address | [address] | | | [place] [address] | + + + | Home Phone [...] [place], [place] | | | | | [address] | | + + + + + Care Team Providers + +------+ + | Care Mortgage Banker Name | Role | Phone | + +------+ + PCP | Unavailable | + +------+ + Encounter Details +--------+ + + + + | Date | Type | Department | Care Team | Description | +--------+ + + + + | 03/26/ | Hospital | [facility] | | | | 2001 | Encounter | MED CTR LABORATORY | | | | | | [address] | | | | | | [place] | | | | | | [address] | | | | | | [phone] | | | +--------+ + + + [...] | | | | | [place] [address] | | | | | | [phone] | | | | | | | | +--------+ + + + + | 06/26/ | Office | Cardiology | Dora De La Torre | | | 2020 | Visit | | [address] | | | | | | [address] | | | | | | [place] [address] | | | | | | [phone] | | | | | | | | +--------+ + + + + documented as of this encounter Visit Diagnoses Not on filedocumented in this encounter"
--- OUTSIDE RECORDS SUMMARY | ~2020-04-28 | XMS | Encounter Summary ---
Demographics + + + | Address | [address] | | | [place] [address] | + + + | Home Phone [...] [place] | | | | | [address] | | + + + + + Care Team Providers + +------+ + | Care Sprinkler Fitter Name | Role | Phone | [...] + + | 08/09/ | Documentati | [facility] | Katharine Moncada, | Other (end of study) | | 2019 | on | CARDIOLOGY [place] | Technologist | | | | | [address] | | | | | | [place], [place] | | | | | | [address] | | | | | | [phone] | | | +--------+ + + + [...] Technologist - 08/09/2019 11:59 PM PDT Cardiac Truck Body Builder Apprentice Date of Event Monitor: 08/09/19 Referring Physician: [...] | | | | | [place] [address] | | | | | | [phone] | | | | | | | | +--------+ + + + + | 06/26/ | Office | Cardiology | Dora De La Torre | | | 2020 | Visit | | [address] | | | | | | [address] | | | | | | [place] [address] | | | | | | [phone] | | | | | | | | +--------+ + + + + documented as of this encounter Visit Diagnoses Not on filedocumented in this encounter"
--- OUTSIDE RECORDS SUMMARY | ~2020-04-28 | XMS | Encounter Summary ---
Demographics + + + | Address | [address] | | | [place] [address] | + + + | Home Phone [...] [place] | | | | | [address] | | + + + + + Care Team Providers + +------+ + | Care Gusset Stitcher Name | Role | Phone | [...] | | | spondylolist | | [address] [place] | | | | | hesis | | [place], | | | | | Spinal | | [place] [address] | | | | | stenosis, | | Phone: | | | | | lumbar | | [phone] | | | | | region, | | Fax: | | | | | without | | [phone] | | | | | neurogenic | [...] + + | 07/02/ | Hospital | [facility] | Frandy Teresa, | Spinal stenosis, | | 2013 | Encounter | MED CTR XRAY [address] | DO [address] | lumbar region, | | | | [place] | [address] [place], [place] | without neurogenic | | | | [place] [address] | [address] | claudication | | | | [phone] | | (Primary Dx) | +--------+ + [...] + + + +---------+ + + | Jones-3 Fatty | Take 1,000 mg by | [...] [place]ANTU | | | | | | [place] [address] | | | | | | [phone] | | | | | | | | +--------+ + + + + | 06/26/ | Office | Cardiology | Britt Dora | | | 2019 | Visit | | [address] | | | | | | [address] | | | | | | [place] [address] | | | | | | [phone] | | | | | | | [...]
--- OUTSIDE RECORDS SUMMARY | ~2020-04-28 | XMS | Encounter Summary ---
Demographics + + + | Address | [address] | | | [place] [address] | + + + | Home Phone [...] [place] | | | | | [address] | | + + + + + Care Team Providers + +------+ + | Care Horse Riding Coach Or Instructor Name | Role | Phone | [...] | | | 2014 | | MEDICINE [facility] RICH | MD Lisa [address] | | | | [address] [place], | [place], [place] | | | | | [place] [address] | [address] | | | | | [phone] | | | +--------+ + + + [...] | | | | | [place] [address] | | | | | | [phone] | | | | | | | | +--------+ + + + + | 06/26/ | Office | Cardiology | Dora De La Torre | | | 2019 | Visit | | [address] | | | | | | [address] | | | | | | [place] [address] | | | | | | [phone] | | | | | | | [...]
--- OUTSIDE RECORDS SUMMARY | ~2020-04-28 | XMS | Encounter Summary ---
Demographics + + + | Address | [address] | | | [place] [address] | + + + | Home Phone [...] [place] | | | | | [address] | | + + + + + Care Team Providers + +------+ + | Care Planning Coordinator Name | Role | Phone | [...] Closed | | Radiology | Diagnoses | [place], | | | | | | Thoracic or | Natalee L, | | | | | | lumbosacral | DIRECTOR [address] | | | | | | neuritis or | [address] | | | | | | | [address] | | | | | | radiculitis, | [place], | | | | | | unspecified | [place] [address] | | | | | | | Phone: | | | | | | Degeneration | [phone] | | | | | | of lumbar | Fax: | | | | | | or | [phone] | | | | | | lumbosacral [...] + + | 03/11/ | Hospital | [facility] | Natalee Andersen | Thoracic or | | 2013 | Encounter | MED CTR MRI [address] | L, DIRECTOR [address] | lumbosacral neuritis | | | | [place], | [address] | or radiculitis, | | | | [place] [address] | [place] [address] | unspecified; | | | | [phone] | [phone] | Degeneration of | | | | [...] + + + +---------+ + + | [place]-3 Fatty | Take 1,000 mg by | [...] encounter Miscellaneous Notes Miscellaneous - ONBASE SCAN [facility] - 03/20/2014 12:00 AM PDT [...] CANTU | | | | | | [place] [address] | | | | | | [phone] | | | | | | | | +--------+ + + + + | 06/26/ | Office | Cardiology | Dora De La Torre | | | 2019 | Visit | | [address] | | | | | | [address] | | | | | | [place] [address] | | | | | | [phone] | | | | | | | [...] + | MISCELLANEOUS LAB | | | [phone] | + +---------+ + + | MISCELANIOUS LAB | | | [phone] | + +---------+ + + documented in this encounter Visit Diagnoses + + | Diagnosis | + + | Thoracic or lumbosacral neuritis or radiculitis, unspecified | + + | Degeneration of lumbar or lumbosacral intervertebral disc | + + documented in this encounter"
--- OUTSIDE RECORDS SUMMARY | ~2020-04-28 | XMS | Encounter Summary ---
Demographics + + + | Address | [address] | | | [place] [address] | + + + | Home Phone [...] [place] | | | | | [address] | | + + + + + Care Team Providers + +------+ + | Care Last Turner Name | Role | Phone | [...] 2018 | | CARDIOLOGY [place] | Pollo, Automation Technician | to take monitor | | | | [address] | | off. ) | | | | [address] | | | | | | [place] | | | | | | [address] | | | | | | [phone] | | | +--------+ + + + [...] Miscellaneous Notes Telephone Encounter - Ashley Chávez, Automation Technician - 08/30/2019 9:19 AM Bertagutierrez t called [...] thankful for the news. Patient stated understanding JDW:VEGETABLE FARM WORKER-AAMA. [facility] umented in this encounter Plan of Treatment +--------+ + + + + | Date | Type | Specialty | Care Team | Description | +--------+ + + + + | 05/29/ | Procedure | Cardiology | RoxannDora del rosario | | 2019 | visit | | [address] | | | | | | [address] | | | | | | [place] [address] | | | | | | [phone] | | | | | | | | +--------+ + + + + | 06/26/ | Office | Cardiology | Dora De La Torre | | | 2020 | Visit | | [address] | | | | | | [address] | | | | | | [place] [address] | | | | | | [phone] | | | | | | | | +--------+ + + + + documented as of this encounter Visit Diagnoses Not on filedocumented in this encounter"
--- OUTSIDE RECORDS SUMMARY | ~2020-04-28 | XMS | Encounter Summary ---
Demographics + + + | Address | [address] | | | [place] [address] | + + + | Home Phone [...] [place] | | | | | [address] | | + + + + + Care Team Providers + +------+ + | Care Archeology Faculty Member Name | Role | Phone [...] AVE | | | | | [address] [facility] [address] | [address] [place], [place] | | | | | [place], [place] | [id number] | | | | | [address] | | | | | | [phone] | | | +--------+--------+ + + + [...] to notify that p rescription refill for Wilmore has been authorized. Informed about MRI results per MD results. Also notified about new medication neurontin. Pt verbalized understanding and will notify o ur office if her numbness to bilat feet (upper and lower) doesn't improve. Pt requested refi ll rx of Wilmore to be mailed via certified mail to [facility] y signed by Megan Schreiber, [...] PSTPt called to requesting medication refill of Wilmore. Pt c/o l ower back and left [...] [place]U | | | | | | [place] [address] | | | | | | [phone] | | | | | | | | +--------+ + + + + | 06/26/ | Office | Cardiology | Dora De La Torre | | | 2019 | Visit | | [address] | | | | | | [address] | | | | | | [place] [address] | | | | | | [phone] | | | | | | | | +--------+ + + + + documented as of this encounter Visit Diagnoses Not on filedocumented in this encounter"
--- OUTSIDE RECORDS SUMMARY | ~2020-04-28 | XMS | Encounter Summary ---
Demographics + + + | Address | [address] | | | [place] [address] | + + + | Home Phone [...] [place] | | | | | [address] | | + + + + + Care Team Providers + +------+ + | Care Workforce Management Analyst Name | Role | Phone | [...] | 05/13/ | Telephone | [facility] | Frandy Teresa, | Other | | 2013 | | NEUROSURGERY [address] | DO [address] | | | | | [address] | [address] [place], [place] | | | | | [place], [place] | [id number] | | | | | [address] | | | | | | [phone] | | | +--------+ + + + [...] [address] | | | | | | [place] [address] | | | | | | [phone] | | | | | | | | +--------+ + + + + | 06/26/ | Office | Cardiology | Dora De La Torre | | | 2019 | Visit | | [address] | | | | | | [address] | | | | | | [place] [address] | | | | | | [phone] | | | | | | | | +--------+ + + + + documented as of this encounter Visit Diagnoses Not on filedocumented in this encounter"
--- OUTSIDE RECORDS SUMMARY | ~2020-04-28 | XMS | Encounter Summary ---
Demographics + + + | Address | [address] | | | [place] [address] | + + + | Home Phone [...] [place], [place] | | | | | [address] | | + + + + + Care Team Providers + +------+ + | Care Circus Artist Name | Role | Phone | + +------+ + PCP | Unavailable | + +------+ + Encounter Details +--------+ + + + + | Date | Type | Department | Care Team | Description | +--------+ + + + + | 06/30/ | Hospital | [facility] | | | | 1999 - | Encounter | MED CTR GENERIC PSY | | | | | | CONV DEPT [address] | | | | 07/05/ | | [address], | | | | 1999 | | [place] [address] | | | | | | [phone] | | | +--------+ + + + [...] [address] | | | | | | [place] [address] | | | | | | [phone] | | | | | | | | +--------+ + + + + | 06/26/ | Office | Cardiology | Dora De La Torre | | | 2019 | Visit | | [address] | | | | | | [address] | | | | | | [place] [address] | | | | | | [phone] | | | | | | | | +--------+ + + + + documented as of this encounter Visit Diagnoses Not on filedocumented in this encounter"
--- OUTSIDE RECORDS SUMMARY | ~2020-04-28 | XMS | Encounter Summary ---
Demographics + + + | Address | [address] | | | [place] [address] | + + + | Home Phone [...] [place] | | | | | [address] | | + + + + + Care Team Providers + +------+ + | Care Senior Benefits Specialist Name | Role | Phone [...] | SLEEP DISORDER [address] | [address] | | | | | [address] [place] | [place], [place] | | | | | [place] [address] | [address] | | | | | [phone] | | | +--------+ + + + [...] [place] | | | | | | [place] [address] | | | | | | [phone] | | | | | | | | +--------+ + + + + | 06/26/ | Office | Cardiology | Dora De La Torre | | | 2019 | Visit | | [address] | | | | | | [address] | | | | | | [place] [address] | | | | | | [phone] | | | | | | | | +--------+ + + + + documented as of this encounter Visit Diagnoses Not on filedocumented in this encounter"
--- OUTSIDE RECORDS SUMMARY | ~2020-04-28 | XMS | Encounter Summary ---
Demographics + + + | Address | [address] | | | [place] [address] | + + + | Home Phone [...] [place] | | | | | [address] | | + + + + + Care Team Providers + +------+ + | Care Push Bench Operator Helper Name | Role | Phone [...] + + | 03/07/ | Telephone | [facility] | Katharine Cardona PA-C | Results | | 2014 | | MEDICINE [place] | [address] [facility] | | | | | [address] | [place] [address] | | | | | [place], [place] | [phone] | | | | | [address] | | | | | | [phone] | | | +--------+ + + + [...] Miscellaneous Notes Telephone Encounter - Adrianne Horton, Technical Intern - 03/11/2015 3:41 PM PDTCalled Pat and delivered her results. Patient verbalized good understanding. elephone Encounter - Adrianne Horton , Technical Intern - 03/11/2015 8:40 AM PDTCall placed to [...] C[address]U | | | | | | [place] [address] | | | | | | [phone] | | | | | | | | +--------+ + + + + | 06/26/ | Office | Cardiology | Dora De La Torre | | | 2019 | Visit | | [address] | | | | | | [address] | | | | | | [place] [address] | | | | | | [phone] | | | | | | | | +--------+ + + + + documented as of this encounter Visit Diagnoses Not on filedocumented in this encounter"
--- OUTSIDE RECORDS SUMMARY | ~2020-04-28 | XMS | Encounter Summary ---
Demographics + + + | Address | [address] | | | [place] [address] | + + + | Home Phone [...] [place], [place] | | | | | [address] | | + + + + + Care Team Providers + +------+ + | Care Forestry Fire Aid Name | Role | Phone | + +------+ + PCP | Unavailable | + +------+ + Encounter Details +--------+ + + + + | Date | Type | Department | Care Team | Description | +--------+ + + + + | 09/24/ | Hospital | [facility] | | | | 1993 | Encounter | MED CTR LABORATORY | | | | | | [address] | | | | | | [place] | | | | | | [address] | | | | | | [phone] | | | +--------+ + + + [...] | | | | | [place] [address] | | | | | | [phone] | | | | | | | | +--------+ + + + + | 06/26/ | Office | Cardiology | Dora De La Torre | | | 2020 | Visit | | [address] | | | | | | [address] | | | | | | [place] [address] | | | | | | [phone] | | | | | | | | +--------+ + + + + documented as of this encounter Visit Diagnoses Not on filedocumented in this encounter"
--- OUTSIDE RECORDS SUMMARY | ~2020-04-28 | XMS | Encounter Summary ---
Demographics + + + | Address | [address] | | | [place] [address] | + + + | Home Phone [...] [place] | | | | | [address] | | + + + + + [...] | 03/30/ | Hospital | [facility] | Tyrese Neely MD | | | 2012 | Encounter | MED CTR MP INTRA OP | [address], [place] | | | | | [address] | [address] [place], [place] | | | | | [place], [place] | [address] | | | | | [address] | | | | | | [phone] | | | +--------+ + + + [...] Neely MD - 03/30/2013 12:10 [place] [address] Patient Name: CINDY ARNDT Provider: Tyrese Neely MD Unit #: [id number] Location: [facility] : 1955 Patient Name: Cindy Arndt Gender: F Procedure Date: 03/30/2013 12:10 PM Date of : 1955 Age: 57 Admit Type: Outpatient Room: Endo Room 1 Note Status: Finalized Attending MD: Tyrese Neely MD Procedure: Upper GI endoscopy Indications: Epigastric abdominal pain Providers: Tyrese Neely MD, Vanesa Anne RN, Yesenia Downing, Candy Separator Enrobing, Guillermo Ortiz MD (Anesthesia Staff) Referring MD: [...] physician, the nurse, the anesthesiologist and the photogrammetric technician. The procedure was verified in the [...] | | | | | | [place] [address] | | | | | | [phone] | | | | | | | | +--------+ + + + + | 06/26/ | Office | Cardiology | Isacc De La Torre | | | 2019 | Visit | | Vanessa, PENSION FUND MANAGER [address] | | | | | | [address] | | | | | | [place] [address] | | | | | | [phone] | | | | | | | [...] + | [facility] | [address] | [place], [place] | [phone] | | [facility] | | [address] | | | - LABORATORY | | | | + + + + + | [facility] | [address] | [place], [place] | | | [facility] | | [address] | | | - [...] + | [facility] | [address] | [place] | [phone] | | [facility] | | [address] | | | - LABORATORY | | | | + + + + + | [facility] | [address] | [place], [place] | | | [facility] | | [id number] [place] [address] | | | - LABORATORY | | | | + + + + + documented in this encounter Visit Diagnoses Not on filedocumented in this encounter"
--- OUTSIDE RECORDS SUMMARY | ~2020-04-28 | XMS | Encounter Summary ---
Demographics + + + | Address | [address] | | | [place] [address] | + + + | Home Phone [...] Author + + + | Author | [facility] | + + + | Organization | [facility] | + + + | Address | Unknown | + + + | Phone | Unavailable | + + + Support + + + + + | Name | Relationship | Address | Phone | + + + + + | Kelsy Bautista | ECON | [address] | | | | | [place] | | | | | [address] | | + + + + + Care Team Providers + +------+ + | Care Boulevard Glassware Replacer Name | Role | Phone | + [...] [id number] | | | | | | [place], [place] | | | | | | [address] | | | | | | [phone] | | | +--------+ + + + [...] + + + + | [facility] | [address] | [place] [address] | | | PATHOLOGY | [address] [...] Re | | | | | | [id number] | | | | + + + + + + + + | Specimen | + + | | + + + + + + + | Performing | Address | City/State/Zipcode | Phone Number | | Organization | | | | + + + + + | [facility] | [address] | [place] [address] | | | PATHOLOGY | [address] [...] Re | | | | | | [id number] | | | | + + + + + + + + | Specimen | + + | | + + + + + + + | Performing | Address | City/State/Zipcode | Phone Number | | Organization | | | | + + + + + | [facility] | [address] | [place] [address] | | | PATHOLOGY | [address] [...] Re | | | | | | [id number] | | | | + + + + + + + + | Specimen | + + | | + + + + + + + | Performing | Address | City/State/Zipcode | Phone Number | | Organization | | | | + + + + + | [facility] | [address] | [place] [address] | | | PATHOLOGY | [address] [...] Re | | | | | | [address] | | | | + + + + + + + + | Specimen | + + | | + + + + + + + | Performing | Address | City/State/Zipcode | Phone Number | | Organization | | | | + + + + + | [facility] | [address] | [place] [address] | | | PATHOLOGY | [address] | | | + + + + + documented in this encounter Visit Diagnoses Not on filedocumented in this encounter"
--- OUTSIDE RECORDS SUMMARY | ~2020-04-28 | XMS | Encounter Summary ---
Demographics + + + | Address | [address] | | | [place] [address] | + + + | Home Phone [...] [place], [place] | | | | | [address] | | + + + + + Care Team Providers + +------+ + | Care Radon Inspector Name | Role | Phone | + +------+ + PCP | Unavailable | + +------+ + Encounter Details +--------+ + + + + | Date | Type | Department | Care Team | Description | +--------+ + + + + | 06/23/ | Hospital | [facility] | | | | 2000 | Encounter | MED CTR GENERIC OP | | | | | | CONV DEPT [address] | | | | | | [place], | | | | | | [place] [address] | | | | | | [phone] | | | +--------+ + + + [...] | | | | | [place] [address] | | | | | | [phone] | | | | | | | | +--------+ + + + + | 06/26/ | Office | Cardiology | Dora De La Torre | | | 2019 | Visit | | [address] | | | | | | [address] | | | | | | [place] [address] | | | | | | [phone] | | | | | | | | +--------+ + + + + documented as of this encounter Visit Diagnoses Not on filedocumented in this encounter"
--- OUTSIDE RECORDS SUMMARY | ~2020-04-28 | XMS | Encounter Summary ---
Demographics + + + | Address | [address] | | | [place] [address] | + + + | Home Phone [...] [place] | | | | | [address] | | + + + + + Care Team Providers + +------+ + | Care Shipping Support Clerk Name | Role | Phone | [...] + | 09/10/ | Documentati | [facility] | Katharine Moncada, | Other (urgent | | 2019 | on | CARDIOLOGY [place] | Technologist | report) | | | | [address] | | | | | | [place] | | | | | | [address] | | | | | | [phone] | | | +--------+ + + + [...] | | | | | [place] [address] | | | | | | [phone] | | | | | | | | +--------+ + + + + | 06/26/ | Office | Cardiology | Dora De La Torre | | | 2020 | Visit | | [address] | | | | | | [address] | | | | | | [place] [address] | | | | | | [phone] | | | | | | | | +--------+ + + + + documented as of this encounter Visit Diagnoses Not on filedocumented in this encounter"
--- OUTSIDE RECORDS SUMMARY | ~2020-04-28 | XMS | Encounter Summary ---
Demographics + + + | Address | [address] | | | [place] [address] | + + + | Home Phone [...] [place] | | | | | [address] | | + + + + + Care Team Providers + +------+ + | Care Utility Locate Technician Name | Role | Phone | [...] 02/27/ | Telephone | [facility] | Katharine Cardona PA-C | Appointment (New | | 2014 | | MEDICINE [address] | [address] | Patient) | | | | [place], | [place] [address] | | | | | [place] [address] | [phone] | | | | | [phone] | | | +--------+ + + + [...] patients. Those patients are re ferred to [facility]. Cindy stated that would be fine with her. She stated she is 7 months post-back surgery per Dr. Teresa and only uses the hydrocodone and oxycodone occ asionally. She said she is trying to get off the oxycodone completely. Cindy said she saw Dr. Newman this morning to address her myositis issues. [facility] Appointment scheduled for 03-06-15 with Katharine DEGROOT. [...] [address] | | | | | | [place] [address] | | | | | | [phone] | | | | | | | | +--------+ + + + + | 06/26/ | Office | Cardiology | Dora De La Torre | | | 2019 | Visit | | [address] | | | | | | [address] | | | | | | [place] [address] | | | | | | [phone] | | | | | | | | +--------+ + + + + documented as of this encounter Visit Diagnoses Not on filedocumented in this encounter"
--- OUTSIDE RECORDS SUMMARY | ~2020-04-28 | XMS | Encounter Summary ---
Demographics + + + | Address | [address] | | | [place] [address] | + + + | Home Phone [...] [place] | | | | | [address] | | + + + + + [...] Clinic | | | | | | [facility], [address] | | | | | | [place], [place] | | | | | | [address] | | | | | | [phone] | | | +--------+ + + + [...] as of this encounter Progress Notes Interface, Gluten Settling Tender In - 12/11/2006 5:03 AM [facility]: 07/03/97 INFECTIOUS DISEASE CLINIC: REFERRED [...]
--- OUTSIDE RECORDS SUMMARY | ~2020-04-28 | XMS | Encounter Summary ---
Demographics + + + | Address | [address] | | | [place] [address] | + + + | Home Phone [...] [place] | | | | | [address] | | + + + + + Care Team Providers + +------+ + | Care Fundraiser Name | Role | Phone | [...] + + | 09/19/ | Telephone | [facility] | Ashley Chávez | Other (Patient | | 2018 | | CARDIOLOGY [place], Plastic Shaper | calling to be seen | | | | [address] | | mirella. ) | | | | [place] | | | | | | [address] | | | | | | [phone] | | | +--------+ + + + [...] Miscellaneous Notes Telephone Encounter - Ashley Chávez Plastic Shaper - 09/19/2019 10:41 AM PSTCall m cierra to patient to advise of Dr. Peterson's notes. Patient stated understanding. Patient asked why she couldn't be seen sooner, and I reminded her that we offered her a monae ner appointment that she turned down. Patient said thank you and hung up. CLAYTONW:MANGO. el ephone Encounter - Ashley Chávez Plastic Shaper - 09/19/2019 10:40 AM PST Dora De La Torre, CAROLINE Peterson DO; Ashley Chávez Plastic Shaper So just an FYI: we offered her appointment today at 3 pm but she turned it down, and said she would keep scheduled appt. el ephone Encounter - Ashley Chávez Plastic Shaper - 09/19/2019 10:38 AM PST----- Mess age [...] she needs to be seen by a shake out worker. I have asked Lizeth to call her [...] Please advise. Thank you! [facility] rocky in this encounter Plan of [...] | | | | | | [place] [address] | | | | | | [phone] | | | | | | | | +--------+ + + + + | 06/26/ | Office | Cardiology | Dora De La Torre | | | 2020 | Visit | | [address] | | | | | | [address] | | | | | | [place] [address] | | | | | | [phone] | | | | | | | | +--------+ + + + + documented as of this encounter Visit Diagnoses Not on filedocumented in this encounter"
--- OUTSIDE RECORDS SUMMARY | ~2020-04-28 | XMS | Encounter Summary ---
Demographics + + + | Address | [address] | | | [place] [address] | + + + | Home Phone [...] [place] | | | | | [address] | | + + + + + Care Team Providers + +------+ + | Care Managing Director Atlas Name | Role | Phone | + [...] [address] | | | | | [place], [place] | Shaheen Simons | | | | | [address] | [place] [address] | | | | | [phone] | [phone] | | | | | | | [...] [address] | | | | | | [place] [address] | | | | | | [phone] | | | | | | | | +--------+ + + + + | 06/26/ | Office | Cardiology | Dora De La Torre | | | 2019 | Visit | | [address] | | | | | | [address] | | | | | | [place] [address] | | | | | | [phone] | | | | | | | [...] GIVEN Testing | | | performed at [facility];[address] [place] [address];[place] [address] CULTURE | | | 50,000 TO 100,000 CFU/ML | | | MIXED GRAM POSITIVE HAIDER NO SUSCEPTIBILITY TO FOLLOW | | | MULTIPLE ORGANISM TYPES PRESENT, | | | SUGGESTIVE OF CONTAMINATION OR COLONIZATION. SUGGEST RECOLLECTION FOR | | | CULTURE. Testing | | | performed at [facility];[address] [place] [address];[place] [address] REPORT | | | STATUS 06/08/2012 FINAL [...]
--- OUTSIDE RECORDS SUMMARY | ~2020-04-28 | XMS | Encounter Summary ---
Demographics + + + | Address | [address] | | | [place] [address] | + + + | Home Phone [...] | Author | [facility] | | | [...] [place], [place] | | | | | [address] | | + + + + + Care Team Providers + +------+ + | Care Production Roustabout Name | Role | Phone | + +------+ + PCP | Unavailable | + +------+ + Encounter Details +--------+ + + + + | Date | Type | Department | Care Team | Description | +--------+ + + + + | 01/06/ | Hospital | [facility] | | | | 1992 | Encounter | MED CTR LABORATORY | | | | | | [address] | | | | | | [place] | | | | | | [address] | | | | | | [phone] | | | +--------+ + + + [...] | | | | | [place] [address] | | | | | | [phone] | | | | | | | | +--------+ + + + + | 06/26/ | Office | Cardiology | Dora De La Torre | | | 2020 | Visit | | [address] | | | | | | [address] | | | | | | [place] [address] | | | | | | [phone] | | | | | | | | +--------+ + + + + documented as of this encounter Visit Diagnoses Not on filedocumented in this encounter"
--- OUTSIDE RECORDS SUMMARY | ~2020-04-28 | XMS | Encounter Summary ---
Demographics + + + | Address | [address] | | | [place] [address] | + + + | Home Phone [...] [place] | | | | | [address] | | + + + + + Care Team Providers + +------+ + | Care Intercell Connector Placer Name | Role | Phone | [...] + + | 06/28/ | Telephone | [facility] | Ashley Chávez | Other (Patient | | 2018 | | CARDIOLOGY [place], Hand Clerical Verifier | called to cancel her | | | | [address] | | appointment) | | | | [place] | | | | | | [address] | | | | | | [phone] | | | +--------+ + + + [...] Miscellaneous Notes Telephone Encounter - Ashley Chávez, Hand Clerical Verifier - 06/28/2019 2:12 PM PDTPatigutierrez t said that she already got the result for her ECHO, so she decided to cancel her FU with Dr Peterson. I asked patient if she wanted to reschedule for another time, and she said she wants to FU as needed. I went ahead and canceled her appointment. BRODY:NABILAMA. [facility] Plan of Treatment +--------+ + + + + | Date | Type | Specialty | Care Team | Description | +--------+ + + + + | 05/29/ | Procedure | Cardiology | Droa De La Torre | | | 2019 | visit | | [address] | | | | | | [address] | | | | | | [place] [address] | | | | | | [phone] | | | | | | | | +--------+ + + + + | 06/26/ | Office | Cardiology | Dora De La Torre | | | 2019 | Visit | | [address] | | | | | | [address] | | | | | | [place] [address] | | | | | | [phone] | | | | | | | | +--------+ + + + + documented as of this encounter Visit Diagnoses Not on filedocumented in this encounter"
--- OUTSIDE RECORDS SUMMARY | ~2020-04-28 | XMS | Encounter Summary ---
Demographics + + + | Address | [address] | | | [place] [address] | + + + | Home Phone [...] [place] | | | | | [address] | | + + + + + Care Team Providers + +------+ + | Care Judicial Assistant Name | Role | Phone | [...] | | | | | | | [address] | | | | | | | Phone: | | | | | | | [phone] | | | | | | | Fax: | | | | | | | [phone] | | +--------+ + + + + + Reason for Visit + + + | Reason | Comments | + + + | Follow-up | 3 mo po | + + + Encounter Details +--------+---------+ + + + | Date | Type | Department | Care Team | Description | +--------+---------+ + + + | 09/27/ | Office | [facility] | Frandy Teresa, | Lumbar spondylosis | | 2013 | Visit | NEUR[address]URGERY [address] | DO [address] | (Primary Dx); S/P | | | | [address] | [address] [place], [place] | lumbar fusion | | | | [place] | [address] | | | | | [address] | | | | | | [phone] | | | +--------+---------+ + + + [...] [facility] [place], [address] [place] [address] FAX: NEUROSURGERY FOLLOW-UP CHIEF COMPLAINT: Chief Complaint [...] Laterality: N/A; Surgeon: Frandy castellanos DO; Location: [facility] MAIN OR CURRENT MEDICATIONS: Current [...] Take 15 mg by mouth nightl y. [place]-3 Fatty Acids (FISH OIL CONCENTRATE) 1000 MG [...] encounter Miscellaneous Notes Miscellaneous - [facility] - 09/27/2014 12:00 AM [...] | | | | | [place] [address] | | | | | | [phone] | | | | | | | | +--------+ + + + + | 06/26/ | Office | Cardiology | Dora De La Torre | | | 2019 | Visit | | [address] | | | | | | [address] | | | | | | [place] [address] | | | | | | [phone] | | | | | | | [...]
--- OUTSIDE RECORDS SUMMARY | ~2020-04-28 | XMS | Encounter Summary ---
Demographics + + + | Address | [address] | | | [place] [address] | + + + | Home Phone [...] [place] | | | | | [address] | | + + + + + Care Team Providers + +------+ + | Care Sheet Metal Former Name | Role | Phone | [...] + + | 07/30/ | Telephone | [facility] | Ashley Chávez | Other (Patient | | 2019 | | CARDIOLOGY [place] Abad, Sports Medicine Trainer | mariela ) | | | | [address] | | | | | | [facility] [place] | | | | | | [address] | | | | | | [phone] | | | +--------+ + + + [...] Miscellaneous Notes Telephone Encounter - Ashley Chávez Sports Medicine Trainer - 07/30/2019 1:40 PM Shila norton to patient to advise of Dr. Peterson's notes. Patient stated understanding. BRODY:MANGO. el ephone Encounter - Ashley Chávez, Sports Medicine Trainer - 07/30/2019 1:40 PM PDT----- Mess [...] Thanks ----- Message ----- From: Ashley Chávez Sports Medicine Trainer Sent: 07/30/2019 11:47 To: Desiree Peterson [...] [address] | | | | | | [place] [address] | | | | | | [phone] | | | | | | | | +--------+ + + + + | 06/26/ | Office | Cardiology | Dora De La Torre | | | 2019 | Visit | | [address] | | | | | | [address] | | | | | | [place] [address] | | | | | | [phone] | | | | | | | | +--------+ + + + + documented as of this encounter Visit Diagnoses Not on filedocumented in this encounter"
--- OUTSIDE RECORDS SUMMARY | ~2020-04-28 | XMS | Encounter Summary ---
Demographics + + + | Address | [address] | | | [place] [address] | + + + | Home Phone [...] [place], [place] | | | | | [address] | | + + + + + Care Team Providers + +------+ + | Care Freight Separator Name | Role | Phone | + +------+ + PCP | Unavailable | + +------+ + Encounter Details +--------+ + + + + | Date | Type | Department | Care Team | Description | +--------+ + + + + | 12/22/ | Hospital | [facility] | | | | 1993 - | Encounter | MED CTR GENERIC PSY | | | | | | CONV DEPT [address] | | | | 12/25/ | | [address], | | | | 1993 | | [place] [address] | | | | | | [phone] | | | +--------+ + + + [...] [address] | | | | | | [place] [address] | | | | | | [phone] | | | | | | | | +--------+ + + + + | 06/26/ | Office | Cardiology | Dora De La Torre | | | 2019 | Visit | | [address] | | | | | | [address] | | | | | | [place] [address] | | | | | | [phone] | | | | | | | | +--------+ + + + + documented as of this encounter Visit Diagnoses Not on filedocumented in this encounter"
--- OUTSIDE RECORDS SUMMARY | ~2020-04-28 | XMS | Encounter Summary ---
Demographics + + + | Address | [address] | | | [place] [address] | + + + | Home Phone [...] [place], [place] | | | | | [address] | | + + + + + Care Team Providers + +------+ + | Care Umbrella Frame Maker Name | Role | Phone | + +------+ + PCP | Unavailable | + +------+ + Encounter Details +--------+ + + + + | Date | Type | Department | Care Team | Description | +--------+ + + + + | 12/27/ | Hospital | [facility] | | | | 1997 | Encounter | MED CTR EMERGENCY | | | | | | [address] | | | | | | [place] | | | | | | [address] | | | | | | [phone] | | | +--------+ + + + [...] | | | | | [place] [address] | | | | | | [phone] | | | | | | | | +--------+ + + + + | 06/26/ | Office | Cardiology | Dora De La Torre | | | 2020 | Visit | | [address] | | | | | | [address] | | | | | | [place] [address] | | | | | | [phone] | | | | | | | | +--------+ + + + + documented as of this encounter Visit Diagnoses Not on filedocumented in this encounter"
--- OUTSIDE RECORDS SUMMARY | ~2020-04-28 | XMS | Encounter Summary ---
Demographics + + + | Address | [address] | | | [place] [address] | + + + | Home Phone [...] [place] | | | | | [address] | | + + + + + Care Team Providers + +------+ + | Care Extrusion Process Operator Name | Role | Phone [...] [place] | | | | | | [address] | | | | | | [phone] | | | +--------+ + + + [...] | | | | | [place] [address] | | | | | | [phone] | | | | | | | | +--------+ + + + + | 06/26/ | Office | Cardiology | Dora De La Torre | | | 2020 | Visit | | [address] | | | | | | [address] | | | | | | [place] [address] | | | | | | [phone] | | | | | | | | +--------+ + + + + documented as of this encounter Visit Diagnoses Not on filedocumented in this encounter"
--- OUTSIDE RECORDS SUMMARY | ~2020-04-28 | XMS | Encounter Summary ---
Demographics + + + | Address | [address] | | | [place] [address] | + + + | Home Phone [...] [place] | | | | | [address] | | + + + + + Care Team Providers + +------+ + | Care Insurance Plan Specialist Name | Role | Phone [...] | | | | | | [place] [address] | | | | | | [phone] | | | | | | | [...] in | | | | | | [place] with a | | | | | [...] [facility] | | | | | | [facility] | | | | | | Laboratory, [place], | | | | | | [place], delivered | | | | | | [...] by | | | | | | qmhtiidcTab-Tmd-S: | | | | | | Increased [...] istryMHC-1: | | | | | | IzupahkdKH82 stain | | | | | | [...] | + + + + + | [facility] | [address] | [place] [address] | | | PATHOLOGY | [place] | | | + + + + + documented in this encounter Visit Diagnoses Not on filedocumented in this encounter
--- OUTSIDE RECORDS SUMMARY | ~2020-04-28 | XMS | Encounter Summary ---
Demographics + + + | Address | [address] | | | [place] [address] | + + + | Home Phone [...] [place] | | | | | [address] | | + + + + + [...] + + | 07/24/ | Telephone | [facility] | Ashley Chávez | Other (Patient is | | 2018 | | CARDIOLOGY [place] Abad, Rn Med Surg | worried about paying | | | | [address] | | for monitor. ) | | | | [place] | | | | | | [address] | | | | | | [phone] | | | +--------+ + + + [...] Notes Telephone Encounter - Ashley Chávez, Rn Med Surg - 07/24/2019 11:13 AM Seferino t says [...] gals to see what can be done. JDW:DENTAL CLAIMS PROCESSOR-AAMA. [facility] umented in this [...] [address] | | | | | | [place] [address] | | | | | | [phone] | | | | | | | | +--------+ + + + + | 06/26/ | Office | Cardiology | Dora De La Torre | | | 2019 | Visit | | [address] | | | | | | [address] | | | | | | [place] [address] | | | | | | [phone] | | | | | | | | +--------+ + + + + documented as of this encounter Visit Diagnoses Not on filedocumented in this encounter"
--- OUTSIDE RECORDS SUMMARY | ~2020-04-28 | XMS | Encounter Summary ---
Demographics + + + | Address | [address] | | | [place] [address] | + + + | Home Phone [...] [place] | | | | | [address] | | + + + + + Care Team Providers + +------+ + | Care Supervisor Drilling And Shooting Name | Role | Phone | + [...] + + | 08/15/ | Documentati | [facility] | Katharine Moncada, | Other (urgent | | 2019 | on | CARDIOLOGY [place] | Technologist | report) | | | | [address] | | | | | | [place] | | | | | | [address] | | | | | | [phone] | | | +--------+ + + + [...] as of this encounter Progress Notes Katharine Moncaad, Technologist - 08/15/2019 4:41 PM PDTReceived urgent [...] | | | | | [place] [address] | | | | | | [phone] | | | | | | | | +--------+ + + + + | 06/26/ | Office | Cardiology | Dora De La Torre | | | 2020 | Visit | | [address] | | | | | | [address] | | | | | | [place] [address] | | | | | | [phone] | | | | | | | | +--------+ + + + + documented as of this encounter Visit Diagnoses Not on filedocumented in this encounter"
--- OUTSIDE RECORDS SUMMARY | ~2020-04-28 | XMS | Encounter Summary ---
Demographics + + + | Address | [address] | | | [place] [address] | + + + | Home Phone [...] [place] | | | | | [address] | | + + + + + [...] [place] | | | | | | [address] | | | | | | [phone] | | | +--------+ + + + [...] | | | | | [place] [address] | | | | | | [phone] | | | | | | | | +--------+ + + + + | 06/26/ | Office | Cardiology | Dora De La Torre | | | 2020 | Visit | | [address] | | | | | | [address] | | | | | | [place] [address] | | | | | | [phone] | | | | | | | | +--------+ + + + + documented as of this encounter Visit Diagnoses Not on filedocumented in this encounter"
--- OUTSIDE RECORDS SUMMARY | ~2020-04-28 | XMS | Encounter Summary ---
Demographics + + + | Address | [address] | | | [place] [address] | + + + | Home Phone [...] [place] | | | | | [address] | | + + + + + Care Team Providers + +------+ + | Care Cutting Torch Operator Name | Role | Phone | [...] | | | | [address], | address | | | | | [address] [place] | | | | | | [place] [address] | | | | | | [phone] | | | +--------+ + + + [...] | | | | | [place] [address] | | | | | | [phone] | | | | | | | | +--------+ + + + + | 06/26/ | Office | Cardiology | Dora De La Torre | | | 2019 | Visit | | [address] | | | | | | [address] | | | | | | [place] [address] | | | | | | [phone] | | | | | | | | +--------+ + + + + documented as of this encounter Visit Diagnoses Not on filedocumented in this encounter"
--- OUTSIDE RECORDS SUMMARY | ~2020-04-28 | XMS | Encounter Summary ---
Demographics + + + | Address | [address] | | | [place] [address] | + + + | Home Phone [...] [place] | | | | | [address] | | + + + + + Care Team Providers + +------+ + | Care Reproduction Machine Loader Name | Role | Phone [...] | 02/01/ | Telephone | [facility] | Frandy Teresa, | Imaging Only | | 2019 | | NEUROSURGERY [address] | DO [address] | | | | | [address] | [address] [place], [place] | | | | | [place] | [id number] | | | | | [address] | | | | | | [phone] | | | +--------+ + + + [...] | | | | | | [facility] [place] [address] | | | | | | [phone] | | | | | | | | +--------+ + + + + | 06/26/ | Office | Cardiology | Dora De La Torre | | | 2020 | Visit | | [address] | | | | | | [address] | | | | | | [place] [address] | | | | | | [phone] | | | | | | | | +--------+ + + + + documented as of this encounter Visit Diagnoses Not on filedocumented in this encounter"
--- OUTSIDE RECORDS SUMMARY | ~2020-04-28 | XMS | Encounter Summary ---
Demographics + + + | Address | [address] | | | [place] [address] | + + + | Home Phone [...] [place] | | | | | [address] | | + + + + + Care Team Providers + +------+ + | Care Dragger Out Name | Role | Phone | + [...] + | 09/10/ | Documentati | [facility] | Katharine Moncada, | Other (urgent | | 2019 | on | CARDIOLOGY [place] | Technologist | report) | | | | [address] | | | | | | [place] | | | | | | [address] | | | | | | [phone] | | | +--------+ + + + [...] | | | | | [place] [address] | | | | | | [phone] | | | | | | | | +--------+ + + + + | 06/26/ | Office | Cardiology | Dora De La Torre | | | 2020 | Visit | | [address] | | | | | | [address] | | | | | | [place] [address] | | | | | | [phone] | | | | | | | | +--------+ + + + + documented as of this encounter Visit Diagnoses Not on filedocumented in this encounter"
--- OUTSIDE RECORDS SUMMARY | ~2020-04-28 | XMS | Encounter Summary ---
Demographics + + + | Address | [address] | | | [place] [address] | + + + | Home Phone [...] [place] | | | | | [address] | | + + + + + [...] + + | 08/28/ | Telephone | [facility] | Ashley Chávez | Other (Patient has | | 2018 | | CARDIOLOGY [place]ad, Vice President Of Marketing | questions about | | | | [address] | | monitor. ) | | | | [place] | | | | | | [address] | | | | | | [phone] | | | +--------+ + + + [...] Telephone Encounter - Ashley Chávez, Vice President Of Marketing - 08/28/2019 8:32 AM Rory foster says [...] that if she chooses. Patient stated understanding. JPolloW:BOAT OUTBOARD ENGINE MECHANIC-AAMA. [facility] umented in this encounter Plan of Treatment [...] [address] | | | | | | [place] [address] | | | | | | [phone] | | | | | | | | +--------+ + + + + | 06/26/ | Office | Cardiology | Dora De La Torre | | | 2020 | Visit | | [address] | | | | | | [address] | | | | | | [place] [address] | | | | | | [phone] | | | | | | | | +--------+ + + + + documented as of this encounter Visit Diagnoses Not on filedocumented in this encounter"
--- OUTSIDE RECORDS SUMMARY | ~2020-04-28 | XMS | Encounter Summary ---
Demographics + + + | Address | [address] | | | [place] [address] | + + + | Home Phone [...] [place] | | | | | [address] | | + + + + + Care Team Providers + +------+ + | Care Glost Tile Shader Name | Role | Phone | + [...] + + | 10/25/ | Telephone | [facility] | Ashley Chávez | Other (Patient to | | 2019 | | CARDIOLOGY [place]ad, Insulation Installer | stay on the same | | | | [address] | | dose. ) | | | | [place] | | | | | | [address] | | | | | | [phone] | | | +--------+ + + + [...] Miscellaneous Notes Telephone Encounter - Ashley Chávez Insulation Installer - 10/25/2019 8:44 AM PSTCall m cierra [...] CLAYTONW:IRINA-AAMA. el ephone Encounter - Ashley Chávez Insulation Installer - 10/25/2019 8:40 AM PST----- Mess age from Desiree Peterson DO sent at 10/24/2019 8:42 PM PST ----- Regarding: RE: Patient's Metoprolol. We can stay on the same dose of metoprolol for now. Thanks ----- Message ----- From: Ashley Chávez Insulation Installer Sent: 10/23/2019 10:52 AM PST To: Desiree [...] | | | | | [place] [address] | | | | | | [phone] | | | | | | | | +--------+ + + + + | 06/26/ | Office | Cardiology | Dora De La Torre | | | 2020 | Visit | | [address] | | | | | | [address] | | | | | | [place] [address] | | | | | | [phone] | | | | | | | | +--------+ + + + + documented as of this encounter Visit Diagnoses Not on filedocumented in this encounter"
--- OUTSIDE RECORDS SUMMARY | ~2020-04-28 | XMS | Encounter Summary ---
Demographics + + + | Address | [address] | | | [place] [address] | + + + | Home Phone [...] [place] | | | | | [address] | | + + + + + Care Team Providers + +------+ + | Care Teaching Supervisor Name | Role | Phone | [...] + + | 10/04/ | Office | [facility] | Desiree Peterson DO | ROGERS on CPAP (Primary | | 2019 | Visit | CARDIOLOGY [place] | [address] | Dx); Morbid obesity | | | | [address] | [place], [place] | (HCC); Benign | | | | [address] | [address] | essential HTN; | | | | [place], [place] | | Atrial fibrillation, | | | | [address] | | unspecified type | | | | [phone] | | ([facility]LY [facility]) | +--------+---------+ + + + Social [...] Desiree Peterson, - 10/04/2019 11:40 AM PST [facility] Cardiology Cardiology Follow Up Note Reason [...] rtake in exercise. She recently got a Orthos and has been walking him more regularly. [...] by mouth daily. Blood Glucose Monitoring Suppl (StoreDotIO FLEX SYSTEM) w/Device KIT by Does not ap ply route. budesonide-formoterol (SYMBICORT) 160-4.5 MCG/ACT inhaler Inhale 2 puffs into the lungs 2 (two) times daily. Calcium Carbonate Antacid 1000 MG tablet Take 1,000 mg by mouth 3 (three) times daily. Cholecalciferol (VITAMIN D3) 40157 units CAPS Take by mouth once a [...] [address] | | | | | | [place] [address] | | | | | | [phone] | | | | | | | | +--------+ + + + + | 06/26/ | Office | Cardiology | Dora De La Torre | | | 2019 | Visit | | [address] | | | | | | [address] | | | | | | [place] [address] | | | | | | [phone] | | | | | | | [...]
--- OUTSIDE RECORDS SUMMARY | ~2020-04-28 | XMS | Encounter Summary ---
Demographics + + + | Address | [address] | | | [place] [address] | + + + | Home Phone [...] [place] | | | | | [address] | | + + + + + Care Team Providers + +------+ + | Care Hand Polisher Name | Role | Phone | + +------+ + | Natalee Andersen NP | PCP | | + +------+ + Encounter Details +--------+ + + + + | Date | Type | Department | Care Team | Description | +--------+ + + + + | 05/02/ | Hospital | [facility] | Frandy Teresa, | Back pain | | 2014 | Encounter | MED CTR XRAY [address] | DO [address] | | | | | [place] | [address] [place] | | | | | [place] [address] | [address] | | | | | [phone] | | | +--------+ + + + [...] | | | | | [place] [address] | | | | | | [phone] | | | | | | | | +--------+ + + + + | 06/26/ | Office | Cardiology | Dora De La Torre | | | 2019 | Visit | | [address] | | | | | | [address] | | | | | | [place] [address] | | | | | | [phone] | | | | | | | [...] + | MISCELLANEOUS LAB | | | [phone] | + +---------+ + + | MISCELANIOUS LAB | | | [phone] | + +---------+ + + documented in this encounter Visit Diagnoses + + | Diagnosis | + + | Back pain Backache, unspecified | + + documented in this encounter"
--- OUTSIDE RECORDS SUMMARY | ~2020-04-28 | XMS | Encounter Summary ---
Demographics + + + | Address | [address] | | | [place] [address] | + + + | Home Phone [...] Author | [facility] | | | and [...] [place] | | | | | [address] | | + + + + + Care Team Providers + +------+ + | Care Typesetter Perforator Operator Name | Role | Phone | [...] + + | 07/19/ | Office | [facility] | Desiree Peterson DO | Syncope, unspecified | | 2019 | Visit | CARDIOLOGY [place] | [address] | syncope type | | | | [address] | [place], [place] | (Primary Dx); | | | | [address] | [address] | Essential | | | | [place] | | hypertension; | | | | [address] | | Irregular heartbeat | | | | [phone] | | | +--------+---------+ + + + [...] Peterson DO - 07/19/2019 10:40 AM PDT [facility] Cardiology Cardiology Follow Up Note [...] rtake in exercise. She recently got a [employer] and has been walking him more regularly. [...] by mouth daily. Blood Glucose Monitoring Suppl ([employer] VERIO FLEX SYSTEM) w/Device KIT by Does not ap ply route. budesonide-formoterol (SYMBICORT) 160-4.5 MCG/ACT inhaler Inhale 2 puffs into the lungs 2 (two) times daily. Calcium Carbonate Antacid 1000 MG tablet Take 1,000 mg by mouth 3 (three) times daily. Cholecalciferol (VITAMIN D3) 41772 units CAPS Take by mouth once a [...] | | | | | [place] [address] | | | | | | [phone] | | | | | | | | +--------+ + + + + | 06/26/ | Office | Cardiology | Dora De La Torre | | | 2020 | Visit | | [address] | | | | | | [address] | | | | | | [place] [address] | | | | | | [phone] | | | | | | | [...]
--- OUTSIDE RECORDS SUMMARY | ~2020-04-28 | XMS | Encounter Summary ---
Demographics + + + | Address | [address] | | | [place] [address] | + + + | Home Phone [...] [place] | | | | | [address] | | + + + + + Care Team Providers + +------+ + | Care Chief Warden Name | Role | Phone | + +------+ + | Adriano Patrick MD | PCP | | + +------+ + Encounter Details +--------+ + + + + | Date | Type | Department | Care Team | Description | +--------+ + + + + | 05/16/ | Orders Only | [facility] | Provider, | | | 2018 | | SYSTEM GENERIC OP | MD [address] | | | | | [address]VERSION [address] | [address] | | | | | [address] [place], [place] | [place] [address] | | | | | [address] | | | | | | [phone] | | | +--------+ + + + [...] | | | | | [place] [address] | | | | | | [phone] | | | | | | | | +--------+ + + + + | 06/26/ | Office | Cardiology | Dora De La Torre | | | 2020 | Visit | | [address] | | | | | | [address] | | | | | | [place] [address] | | | | | | [phone] | | | | | | | | +--------+ + + + + documented as of this encounter Visit Diagnoses Not on filedocumented in this encounter"
--- OUTSIDE RECORDS SUMMARY | ~2020-04-28 | XMS | Encounter Summary ---
Demographics + + + | Address | [address] | | | [place] [address] | + + + | Home Phone [...] [place] | | | | | [address] | | + + + + + Care Team Providers + +------+ + | Care Supervisor Roller Shop Name | Role | Phone | [...] | Telephone | [facility] [place] | [facility], | [facility] | | 2012 | | GASTROENTEROLOGY | [place]O Thomas [address] | | | | | [address] [place] | [address] | | | | | [address] [place], [place] | [place], [place] | | | | | [address] | [address] | | | | | [phone] | | | +--------+ + + + [...] [address] | | | | | | [place] [address] | | | | | | [phone] | | | | | | | | +--------+ + + + + | 06/26/ | Office | Cardiology | Dora De La Torre | | | 2019 | Visit | | [address] | | | | | | [address] | | | | | | [place] [address] | | | | | | [phone] | | | | | | | | +--------+ + + + + documented as of this encounter Visit Diagnoses Not on filedocumented in this encounter"
--- OUTSIDE RECORDS SUMMARY | ~2020-04-28 | XMS | Encounter Summary ---
Demographics + + + | Address | [address] | | | [place] [address] | + + + | Home Phone [...] [place] | | | | | [address] | | + + + + + Care Team Providers + +------+ + | Care Pay Station Collector Name | Role | Phone | [...] | 2019 | | CARDIOLOGY [place] Abad, Truck Driver Heavy | about coverage. ) | | | | [address] | | | | | | [place] | | | | | | [address] | | | | | | [phone] | | | +--------+ + + + [...] Miscellaneous Notes Telephone Encounter - Ashley Chávez, Truck Driver Heavy - 08/08/2019 10:58 AM Seferino foster called and wanted to know if her monitor needed to be AUTHORIZED. I asked Danelle and she said that because she had medicare part A and B, it does not need kayode or auth. I told this information to the patient, patient stated understanding. JKASSIE:PACKING LINE WORKER-AAMA. [facility] umphilipp in this encounter Plan of [...] [address] | | | | | | [place] [address] | | | | | | [phone] | | | | | | | | +--------+ + + + + | 06/26/ | Office | Cardiology | Dora De La Torre | | | 2019 | Visit | | [address] | | | | | | [address] | | | | | | [place] [address] | | | | | | [phone] | | | | | | | | +--------+ + + + + documented as of this encounter Visit Diagnoses Not on filedocumented in this encounter"
--- OUTSIDE RECORDS SUMMARY | ~2020-04-28 | XMS | Encounter Summary ---
Demographics + + + | Address | [address] | | | [place] [address] | + + + | Home Phone [...] [place] | | | | | [address] | | + + + + + Care Team Providers + +------+ + | Care Diversity Intern Name | Role | Phone | [...] [place] | | | | | | [address] | | | | | | [phone] | | | +--------+ + + + [...] | | | | | [place] [address] | | | | | | [phone] | | | | | | | | +--------+ + + + + | 06/26/ | Office | Cardiology | Dora De La Torre | | | 2020 | Visit | | [address] | | | | | | [address] | | | | | | [place] [address] | | | | | | [phone] | | | | | | | | +--------+ + + + + documented as of this encounter Visit Diagnoses Not on filedocumented in this encounter"
--- OUTSIDE RECORDS SUMMARY | ~2020-04-28 | XMS | Encounter Summary ---
Demographics + + + | Address | [address] | | | [place] [address] | + + + | Home Phone [...] [place] | | | | | [address] | | + + + + + Care Team Providers + +------+ + | Care Fondant Puff Maker Name | Role | Phone | [...] [place] | | | | | | [address] | | | | | | [phone] | | | +--------+ + + + [...] | | | | | [place] [address] | | | | | | [phone] | | | | | | | | +--------+ + + + + | 06/26/ | Office | Cardiology | Dora De La Torre | | | 2020 | Visit | | [address] | | | | | | [address] | | | | | | [place] [address] | | | | | | [phone] | | | | | | | | +--------+ + + + + documented as of this encounter Visit Diagnoses Not on filedocumented in this encounter"
--- OUTSIDE RECORDS SUMMARY | ~2020-04-28 | XMS | Encounter Summary ---
Demographics + + + | Address | [address] | | | [place] [address] | + + + | Home Phone [...] [place] | | | | | [address] | | + + + + + [...] + + | 09/10/ | Documentati | [facility] | Katharine Moncada, | Other (urgent | | 2019 | on | CARDIOLOGY [place] | Technologist | report) | | | | [address] | | | | | | [place] | | | | | | [address] | | | | | | [phone] | | | +--------+ + + + [...] | | | | | [place] [address] | | | | | | [phone] | | | | | | | | +--------+ + + + + | 06/26/ | Office | Cardiology | Dora De La Torre | | | 2020 | Visit | | [address] | | | | | | [address] | | | | | | [place] [address] | | | | | | [phone] | | | | | | | | +--------+ + + + + documented as of this encounter Visit Diagnoses Not on filedocumented in this encounter"
--- OUTSIDE RECORDS SUMMARY | ~2020-04-28 | XMS | Encounter Summary ---
Demographics + + + | Address | [address] | | | [place] [address] | + + + | Home Phone [...] [place], [place] | | | | | [address] | | + + + + + Care Team Providers + +------+ + | Care Railway Shunter Name | Role | Phone | + +------+ + PCP | Unavailable | + +------+ + Encounter Details +--------+ + + + + | Date | Type | Department | Care Team | Description | +--------+ + + + + | 02/02/ | Hospital | [facility] | | | | 1997 - | Encounter | MED CTR GENERIC PSY | | | | | | CONV DEPT [address] | | | | 02/05/ | | [place], | | | | 1997 | | [place] [address] | | | | | | [phone] | | | +--------+ + + + [...] [address] | | | | | | [place] [address] | | | | | | [phone] | | | | | | | | +--------+ + + + + | 06/26/ | Office | Cardiology | Dora De La Torre | | | 2019 | Visit | | [address] | | | | | | [address] | | | | | | [place] [address] | | | | | | [phone] | | | | | | | | +--------+ + + + + documented as of this encounter Visit Diagnoses Not on filedocumented in this encounter"
--- OUTSIDE RECORDS SUMMARY | ~2020-04-28 | XMS | Encounter Summary ---
Demographics + + + | Address | [address] | | | [place] [address] | + + + | Home Phone [...] [place] | | | | | [address] | | + + + + + Care Team Providers + +------+ + | Care Client Services Director Name | Role | Phone [...] + | 07/01/ | Telephone | [facility] | Frandy Teresa, | Other (Surgery ) | | 2013 | | NEUROSURGERY [address] | DO [address] | | | | | [address] | [address] [place], [place] | | | | | [place], [place] | [id number] | | | | | [address] | | | | | | [phone] | | | +--------+ + + + [...] | | | | | [place] [address] | | | | | | [phone] | | | | | | | | +--------+ + + + + | 06/26/ | Office | Cardiology | Dora De La Torre | | | 2019 | Visit | | [address] | | | | | | [address] | | | | | | [place] [address] | | | | | | [phone] | | | | | | | | +--------+ + + + + documented as of this encounter Visit Diagnoses Not on filedocumented in this encounter"
--- OUTSIDE RECORDS SUMMARY | ~2020-04-28 | XMS | Encounter Summary ---
Demographics + + + | Address | [address] | | | [place] [address] | + + + | Home Phone [...] [place] | | | | | [address] | | + + + + + Care Team Providers + +------+ + | Care Sign Language Interpreter Name | Role | Phone | [...] | 08/05/ | Telephone | [facility] | Frandy Teresa, | Other | | 2013 | | NEUROSURGERY [address] | DO [address] | | | | | [address] | [address] [place], [place] | | | | | [place], [place] | [id number] | | | | | [address] | | | | | | [phone] | | | +--------+ + + + [...] [address] | | | | | | [place] [address] | | | | | | [phone] | | | | | | | | +--------+ + + + + | 06/26/ | Office | Cardiology | Dora De La Torre | | | 2019 | Visit | | [address] | | | | | | [address] | | | | | | [place] [address] | | | | | | [phone] | | | | | | | | +--------+ + + + + documented as of this encounter Visit Diagnoses Not on filedocumented in this encounter"
--- OUTSIDE RECORDS SUMMARY | ~2020-04-28 | XMS | Encounter Summary ---
Demographics + + + | Address | [address] | | | [place] [address] | + + + | Home Phone [...] [place] | | | | | [address] | | + + + + + Care Team Providers + +------+ + | Care Pile Driver Operator Helper Name | Role | Phone [...] 2018 | | CARDIOLOGY [place] | Pollo, Bioprocessing Manufacturing Technician | tell patient what | | | | [address] | | Nicholas said. ) | | | | [place] [address] | | | | | | [place] | | | | | | [address] | | | | | | [phone] | | | +--------+ + + + [...] Miscellaneous Notes Telephone Encounter - Ashley Chávez, Bioprocessing Manufacturing Technician - 08/16/2019 2:57 PM PDTCall m cierra to patient to advise of Dr. Peterson's notes. Patient stated understanding. JKASSIE:COMMISSIONING MANAGER-AAMA el ephone Encounter - Ashley Chávez Bioprocessing Manufacturing Technician - 08/16/2019 2:56 PM PDT----- Mess age [...] Thanks. ----- Message ----- From: Lesa Ochoa, Bioprocessing Manufacturing Technician Sent: 08/13/2019 13:31 To: Desiree Peterson DO [...] [address] | | | | | | [place] [address] | | | | | | [phone] | | | | | | | | +--------+ + + + + | 06/26/ | Office | Cardiology | Dora De La Torre | | | 2019 | Visit | | [address] | | | | | | [address] | | | | | | [place] [address] | | | | | | [phone] | | | | | | | | +--------+ + + + + documented as of this encounter Visit Diagnoses Not on filedocumented in this encounter"
--- OUTSIDE RECORDS SUMMARY | ~2020-04-28 | XMS | Encounter Summary ---
Demographics + + + | Address | [address] | | | [place] [address] | + + + | Home Phone [...] [place], [place] | | | | | [address] | | + + + + + Care Team Providers + +------+ + | Care Fermenter Champagne Name | Role | Phone | + +------+ + PCP | Unavailable | + +------+ + Encounter Details +--------+ + + + + | Date | Type | Department | Care Team | Description | +--------+ + + + + | 09/23/ | Hospital | [facility] | | | | 1994 | Encounter | MED CTR LABORATORY | | | | | | [address] | | | | | | [place] | | | | | | [address] | | | | | | [phone] | | | +--------+ + + + [...] | | | | | [place] [address] | | | | | | [phone] | | | | | | | | +--------+ + + + + | 06/26/ | Office | Cardiology | Dora De La Torre | | | 2020 | Visit | | [address] | | | | | | [address] | | | | | | [place] [address] | | | | | | [phone] | | | | | | | | +--------+ + + + + documented as of this encounter Visit Diagnoses Not on filedocumented in this encounter"
--- OUTSIDE RECORDS SUMMARY | ~2020-04-28 | XMS | Encounter Summary ---
Demographics + + + | Address | [address] | | | [place] [address] | + + + | Home Phone [...] [place] | | | | | [address] | | + + + + + Care Team Providers + +------+ + | Care Braddisher Name | Role | Phone | + [...] [place] | | | | | | [address] | | | | | | [phone] | | | +--------+ + + + [...] | | | | | [place] [address] | | | | | | [phone] | | | | | | | | +--------+ + + + + | 06/26/ | Office | Cardiology | Dora De La Torre | | | 2020 | Visit | | [address] | | | | | | [address] | | | | | | [place] [address] | | | | | | [phone] | | | | | | | | +--------+ + + + + documented as of this encounter Visit Diagnoses Not on filedocumented in this encounter"
--- OUTSIDE RECORDS SUMMARY | ~2020-04-28 | XMS | Encounter Summary ---
Demographics + + + | Address | [address] | | | [place] [address] | + + + | Home Phone [...] [place] | | | | | [address] | | + + + + + Care Team Providers + +------+ + | Care Hand Profiler Name | Role | Phone | + [...] + | 07/29/ | Telephone | [facility] | Frandy Cagle, | Other (multiple | | 2013 | | NEUROSURGERY [address] | DO [address] | questions) | | | | [address] [facility] [address] | [address] [place], [place] | | | | | [place], [place] | [id number] | | | | | [address] | | | | | | [phone] | | | +--------+ + + + [...] and I might get a repeat MRI. [place] ordered. Thanks. ddendum Note - Shayne Aragon [...] - 07/29/2014 11:19 AM PDTCall [facility] to [facility] to get fur ther information. [...] refill be mailed to her for her [place] 10/325mg which was given to her on [...] [place] | | | | | | [place] [address] | | | | | | [phone] | | | | | | | | +--------+ + + + + | 06/26/ | Office | Cardiology | Dora De La Torre | | | 2019 | Visit | | [address] | | | | | | [address] | | | | | | [place] [address] | | | | | | [phone] | | | | | | | | +--------+ + + + + documented as of this encounter Visit Diagnoses Not on filedocumented in this encounter"
--- OUTSIDE RECORDS SUMMARY | ~2020-04-28 | XMS | Encounter Summary ---
Demographics + + + | Address | [address] | | | [place] [address] | + + + | Home Phone [...] [place] | | | | | [address] | | + + + + + Care Team Providers + +------+ + | Care Beef Specialist Name | Role | Phone | [...] [address] | | | | | | [place], [place] | | | | | | [address] | | | +--------+ + + + [...]
--- OUTSIDE RECORDS SUMMARY | ~2020-04-28 | XMS | Encounter Summary ---
Demographics + + + | Address | [address] | | | [place] [address] | + + + | Home Phone [...] [place] | | | | | [address] | | + + + + + Care Team Providers + +------+ + | Care Production Department Supervisor Name | Role | Phone [...] | 07/06/ | Emergency | [facility] | Yunior Sherman, | Chest pain, | | 2014 | | [facility] EM[facility] | MD [address] | unspecified chest | | | | CENTER [address] | [place], [place] | pain type (Primary | | | | [place], [place] | [address] | Dx) | | | | [address] | | | | | | [phone] | | | +--------+ + + + [...] sent through Care Everywhere.CHEST PAIN, NON CARDIAC (LITHUANIAN)documented in this encounter Medications at Time of [...] 0 | | | | (VITAMIN D-3) [address] | mouth Once a week. | | [...] | | | | | | | ([facility]) | | | | | [...] + + + +---------+ + + | [place]-3 Fatty | Take 1,000 mg by [...] Laterality: N/A; Surgeon: Frandy castellanos DO; Location: [facility] MAIN OR Cardiac catherization CURRENT [...] mg by mouth Daily. CHOLECALCIFEROL (VITAMIN D-3) 61451 UNITS CAPS Take 50,000 Units by mouth [...] pain. She was recently discharged from a [facility] facility. She's had more than [...] [address] | | | | | | [place] [address] | | | | | | [phone] | | | | | | | | +--------+ + + + + | 06/26/ | Office | Cardiology | Dora De La Torre | | | 2019 | Visit | | [address] | | | | | | [address] | | | | | | [place] [address] | | | | | | [phone] | | | | | | | [...] [address] | [place] | [phone] | | [facility] | | [address] | | | - LABORATORY | | [...] + | [address] [facility] | [address] | [place] | [phone] | | [facility] | | [address] | | | - LABORATORY | | [...] | | | | | | [employer] | | | | | [...] [address] | [place] | [phone] | | [facility] | | [address] | | | - LABORATORY | | [...] | mL/min/1.73m2 | DORA | | | [place] | RATE,ESTIMATED | | MEDICAL | | | | mL/min/1.59v9Wjkd than | | CENTER - | | [...] [address] | [place] | [phone] | | [facility] | | [address] | | | - LABORATORY | | [...] | | | | M/uL | [facility] | | | | [...] | [address] | [place] | [phone] | | [facility] | | [address] | | | - LABORATORY | | [...] | | | | MD MANSI, LACEY ([id number]) | | | | | | on [...]
--- OUTSIDE RECORDS SUMMARY | ~2020-04-28 | XMS | Encounter Summary ---
Demographics + + + | Address | [address] | | | [place] [address] | + + + | Home Phone [...] [place] | | | | | [address] | | + + + + + Care Team Providers + +------+ + | Care Finance Advisor Name | Role | Phone | [...] | | | spondylolist | | [address] | | | | | hesis | | [place], | | | | | Spinal | | [place] [address] | | | | | stenosis, | | Phone: | | | | | lumbar | | [phone] | | | | | region, | | Fax: | | | | | without | | [phone] | | | | | neurogenic | [...] + + | 07/02/ | Surgery | [facility] | Frandy Teresa, | MIS L5-S1 | | 2013 | | MED CTR OR INTRA OP | DO [address] | TRANSFORAMINAL | | | | [address] | [address] [place], [place] | LUMBAR INTERBODY | | | | [place] | [id number] | FUSION | | | | [address] | | | | | | [phone] | | | +--------+---------+ + + + [...] might be different fro m the original. [facility] DISCHARGE SUMMARY PATIENT NAME: Cindy [...] Take 15 mg by mouth nightl y. [place]-3 Fatty Acids (FISH OIL CONCENTRATE) 1000 MG [...] + + + +---------+ + + | [place]-3 Fatty | Take 1,000 mg by | [...] Lynn PA-C - 07/04/2014 7:43 AM PDT [facility] PROGRESS NOTE Pt. Name/Age/: Cindy Arndt 58 y.o. 1955 Med. Record Number: [id number] Date of admission: 07/02/2014 Subjective: The patient [...] home medications. D/C plan: Home tomorrow with [facility]. D/c mari drain and riley cath today. D/c strategic insights lead. Patient Active Problem List Diagnosis LUMBAR DISC [...] signed by: Chris Nicole, 07/04/2014 7:45 [facility] Chris Lynn PA-C - 07/03/2014 7:13 AM PDT . [facility] PROGRESS NOTE Pt. Name/Age/: Cindy Arndt 58 y.o. 1955 Med. Record Number: [id number] Date of admission: 07/02/2014 Subjective: The patient [...] PDTDreyFrandy tim DO - 07/02/2014 11:15 AM [id number] [facility], [address] [place] [address] FAX: NEUROSURGERY HISTORY AND PHYSICAL EXAMINATION CHIEF [...] Take 15 mg by mouth nigh tlgaston. 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 CRANIAL NERVES: II: Acuity is intact. [...] Intrinsics 5 5 Ulnar Intrinsics 5 5 Catering Administrative Assistant Strength 5 5 Hip Flexion 5 [...] this en counter Procedure Notes [facility] - 07/12/2014 12:00 AM PDT 14 1:45 PM [facility] - 07/04/2014 12:00 AM PDT [facility] - 07/02/2014 12:00 AM PDT documented in this encounter Miscellaneous Notes Plan of Care - [facility] - 07/12/2014 12:00 AM PDT iscellaneous - [facility] 07/12/2014 12:00 AM PDTElec tronically signed by Mariah Schulte at 07/12/2014 1:45 PM PDTMiscellaneous - [facility] - 07/12/2014 12:00 AM PDT i scellaneous - [facility] - 07/12/2014 12:00 AM PDT lan of [...] TBD) Equipment Recommendations: tub bench;hand held shower head;weaving inspector;comfort height toilet ( pt. has all necessary [...] Nicole PA-C Consultants: none PCP: Natalee Andersen [facility] transferring to: [facility] Provider after transfer: PCP and Dr. Frandy Teresa CODE STATUS: [x] Attempt CPR [] Do not resuscitate If patient is pulseless and not breathing, RN/JET ENGINE MECHANIC may pronounce . Advanced Directives included: [] [...] for this patient. Diet: [] As tolerated CLOTH NEUTRALIZER may upgrade or downgrade diet as condition Indicates. [x] RN may downgrade diet as indicated. Type: [] Continue current diet of: Diet and Supplements Diet DIET CONSISTENT CARBOHYDRATE Number of Occurrences: -1 Days [] Other: Consistency/Precautions: [] Whole [] Thin Liquids [] Cut-up [] [place] Thick [] Advanced Chopped [] Honey Thickened [] Chopped [] Advanced Ground [] 1:1 feedings [] Ground/Pureed [] Other: Tube Feedings: [] PEG [] GT [] JT [] NGT [] Formula type: (Last Dipper may change/substitute if indicated). [] Continuous Rate: [...] & Management for: ____same as above [] CLOTH NEUTRALIZER Evaluation &Management for: [] Other: Wound/Skin Care: [...] tablet 1-2 tablets Take 1-2 tablets by [facility] every 4 hours as needed [...] Take 15 mg by mouth ni ghtly. [place]-3 Fatty Acids (FISH OIL CONCENTRATE) 1000 MG [...] Orders/Instructions: Physician's signature:__Chris Nicole PA-C 07/05/2014 13:18 [facility] USE ONLY: [] Admitting [...] position change. Sitting at EOB on arrival, PROCUREMENT COST COORDINATOR pres ent. Pt. donned LSO brace, stood [...] of endurance. When patient is walking in [facility] with a regular FWW she has to stop frequently and states she feels very weak, like sh e may fall. Patient lives alone. Outpatient prescriptions are filled at [facility] in [facility]. Electronically signed by: Franca Narvaez RN 07/05/2014 10:43 lan of [facility] Layne Rivers - 07/05/2014 10:39 AM PDTFaxed referral to Gabriela Stout and Lidia Tran. [place] : [id number] and [place]: [id number] Electronically signed by: Layne Collado 07/05/2014 10:40 Received a call from [facility]. They can accept Cindy. Received a call from [facility] and they can't accept Cindy. Tanna from [facility] called and they don't have any beds at this time Electronically signed by: Layne Collado 07/05/2014 12:22 Started the SNF packet. Electronically signed by: Layne Collado 07/05/2014 12:56 lan of [facility] Sandhya Benites RN - 07/05/2014 5:14 AM [...] TBD) Equipment Recommendations: tub bench;hand held shower head;weaving inspector;comfort height toilet ( pt. has all necessary equipment) Planned Interventions: ADL retraining;transfer training Patient Status/Goals Reflects last filed data of patient status; may be from multiple contributors. Grooming: Status: did not occur today Assist: Utilizes: STG: Status: New Goal:modified independent LTG: Status: Goal: UE Dressing: Status: SBA Assist: Utilizes: STG: Status: Goal: LTG: Status: Goal: LE Dressing: Status: SBA Utilizes: weaving inspector STG: Status: New Goal: modified independent LTG: [...] bed mobil ity. Pt has been using HEAD ANIMAL TRAINER and pain pills during the night. Zofran [...] by herself in a small apartment in [place]. Patient states she has her apartment set [...] [facility] from [facility] [place]. She states the Said she might benefit fr Home Health upon discharge. She would like me to contact [facility] to giv e them a heads up. I called and spoke to Summer at [facility] , told her patients PCP i s [...] Pt. resting in bed on arrival, used HEAD ANIMAL TRAINER x 2 during session. SPL 5/10. Pt. hoping to urinate sanitation director to straight cath. Sidelying to sit [...] TBD) Equipment Recommendations: tub bench;hand held shower head;weaving inspector;comfort height toilet ( pt. has all necessary [...] & Review . Outcome: Progressing Pt using HEAD ANIMAL TRAINER and PO pain pills, c/o numbness on [...] and on a continuous oximeter for her HEAD ANIMAL TRAINER. She was unable to do her IS because o f the medications. She has the IS at bedside with a goal of 2400. She did not require additi onal respiratory care throughout the evening. p Note - Frandy Teresa, DO - 07/02/2014 2:25 PM PDTDATE: 07/02/2014 SURGEON: Frandy Teresa MD. LEATHER REPAIRER: ZANE Oh PREOPERATIVE DIAGNOSES 1. Spondylolisthesis, L5-S1. [...] x 26 mm Capstone PEEK cage from [employer] was chosen. It was filled with Infus [...] Note Cindy Arndt 58 y.o. female 1955 [id number] Proc. Date 07/02/2014 Preop Dx Spondylolisthesis L5-S1 Postop Dx same Procedure Procedure(s):MIS L5-S1 TRANSFORAMINAL LUMBAR INTERBODY FUSION Anesthesia General Surgeon Frandy Teresa DO Road Mender ZANE Oh EBL 100 mL Findings Findings [...] [address] | | | | | | [place] [address] | | | | | | [phone] | | | | | | | | +--------+ + + + + | 06/26/ | Office | Cardiology | Dora De La Torre | | | 2019 | Visit | | [address] | | | | | | [address] | | | | | | [place] [address] | | | | | | [phone] | | | | | | | [...] + | [facility] | [address] | [place], [place] | [phone] | | [facility] | | [address] | | | - LABORATORY | | | | + + + + + | [facility] | [address] | [place] | | | [facility] | | [address] [place] [address] | | | - LABORATORY | | [...] + | [facility] | [address] | [place] | [phone] | | [facility] | | [address] | | | - LABORATORY | | | | + + + + + | [facility] | [address] | [place] | | | [facility] | | [address], [facility] | [...] | | POC | | | [facility] | | | | | | [...] + | [facility] | [address] | [place] | [phone] | | [facility] | | [address] | | | - LABORATORY | | | | + + + + + | [facility] | [address] | [place], [place] | | | [facility] | | [address] | | | - [...] + | [facility] | [address] | [place], [place] | [phone] | | [facility] | | [address] | | | - LABORATORY | | | | + + + + + | [facility] | [address] | [place], [place] | | | [facility] | | [address], [facility] | [...] 119 | 79 - 150 mg/dL | IBRD | | | POC | | | [...] [address] | [place] | [phone] | | [facility] | | [address] | | | - LABORATORY | | | | + + + + + | [facility] | [address] | [place] | | | [facility] | | [address], [facility] | [...] + | [facility] | [address] | [place] | [phone] | | [facility] | | [address] | | | - LABORATORY | | | | + + + + + | [facility] | [address] | [place], [place] | | | [facility] | | [address], [facility] | [...] [address] | [place] | [phone] | | [facility] | | [address] | | | - LABORATORY | | | | + + + + + | [facility] | [address] | [place] | | | [facility] | | [id number] | | | - [...] + | [facility] | [address] | [place] | [phone] | | [facility] | | [address] | | | - LABORATORY | | | | + + + + + | [facility] | [address] | [place] | | | [facility] | | [address], [facility] | [...] + | [facility] | [address] | [place] | [phone] | | [facility] | | [address] | | | - LABORATORY | | | | + + + + + | [facility] | [address] | [place], [place] | | | [facility] | | [address] | | | [...] | of hardware for posterior fusion from K5gecirmj S1 with interbody hardware at L5-S1. The [...] + | MISCELLANEOUS LAB | | | [phone] | + +---------+ + + | MISCELANIOUS LAB | | | [phone] | + +---------+ + + POC Glucose [...] + | [facility] | [address] | [place], [place] | [phone] | | [facility] | | [address] | | | - LABORATORY | | | | + + + + + | [facility] | [address] | [place] | | | [facility] | | [address] [place] [address] | | | - LABORATORY | | [...] + | [facility] | [address] | [place] | [phone] | | [facility] | | [address] | | | - LABORATORY | | | | + + + + + | [facility] | [address] | [place] | | | [facility] | | [address], [facility] | [...] + | [facility] | [address] | [place] | [phone] | | [facility] | | [address] | | | - LABORATORY | | | | + + + + + | [facility] | [address] | [place] | | | [facility] | | [address], [facility] | [...] + | [facility] | [address] | [place], [place] | [phone] | | [facility] | | [address] | | | - LABORATORY | | | | + + + + + | [facility] | [address] | [place], [place] | | | [facility] | | [address] | | | - [...] [address] | [place] | [phone] | | [facility] | | [address] | | | - LABORATORY | | | | + + + + + | [facility] | [address] | [place] | | | [facility] | | [address], [facility] | [...] | | [facility] | | [address] | | | - BLOOD BANK | [...] mLs | | Surgical | | 1:200,000 0.25-1:519018 % | | 14 12:42 | | [...]
--- OUTSIDE RECORDS SUMMARY | ~2020-04-28 | XMS | Encounter Summary ---
Demographics + + + | Address | [address] | | | [place] [address] | + + + | Home Phone [...] [place] | | | | | [address] | | + + + + + Care Team Providers + +------+ + | Care Communication Electronic Technician Name | Role | Phone | [...] | Transcriptions | + + | Interface, Painter Railroad Car In - 10/24/2006 3:09 AM PST | | [facility] | | Road [place], [place] [address] Breeding | | [facility] ClinicOPERATION RECORDMed Rec No.: [id number] [...]
--- OUTSIDE RECORDS SUMMARY | ~2020-04-28 | XMS | Encounter Summary ---
Demographics + + + | Address | [address] | | | [place] [address] | + + + | Home Phone [...] [place], [place] | | | | | [address] | | + + + + + Care Team Providers + +------+ + | Care Gas Flow Regulator Name | Role | Phone | + +------+ + PCP | Unavailable | + +------+ + Encounter Details +--------+ + + + + | Date | Type | Department | Care Team | Description | +--------+ + + + + | 06/30/ | Hospital | [facility] | | | | 2000 | Encounter | MED CTR EMERGENCY | | | | | | [address] | | | | | | [place] | | | | | | [address] | | | | | | [phone] | | | +--------+ + + + [...] | | | | | [place] [address] | | | | | | [phone] | | | | | | | | +--------+ + + + + | 06/26/ | Office | Cardiology | Dora De La Torre | | | 2020 | Visit | | [address] | | | | | | [address] | | | | | | [place] [address] | | | | | | [phone] | | | | | | | | +--------+ + + + + documented as of this encounter Visit Diagnoses Not on filedocumented in this encounter"
--- OUTSIDE RECORDS SUMMARY | ~2020-04-28 | XMS | Encounter Summary ---
Demographics + + + | Address | [address] | | | [place] [address] | + + + | Home Phone [...] [place], [place] | | | | | [address] | | + + + + + Care Team Providers + +------+ + | Care Oral Communication Instructor Name | Role | Phone | + +------+ + PCP | Unavailable | + +------+ + Encounter Details +--------+ + + + + | Date | Type | Department | Care Team | Description | +--------+ + + + + | 05/29/ | Hospital | [facility] | | | | 1991 | Encounter | MED CTR LABORATORY | | | | | | [address] | | | | | | [place] | | | | | | [address] | | | | | | [phone] | | | +--------+ + + + [...] | | | | | [place] [address] | | | | | | [phone] | | | | | | | | +--------+ + + + + | 06/26/ | Office | Cardiology | Dora De La Torre | | | 2020 | Visit | | [address] | | | | | | [address] | | | | | | [place] [address] | | | | | | [phone] | | | | | | | | +--------+ + + + + documented as of this encounter Visit Diagnoses Not on filedocumented in this encounter"
--- OUTSIDE RECORDS SUMMARY | ~2020-04-28 | XMS | Encounter Summary ---
Demographics + + + | Address | [address] | | | [place] [address] | + + + | Home Phone [...] [place] | | | | | [address] | | + + + + + Care Team Providers + +------+ + | Care Area Relief Pilot Name | Role | Phone | [...] + + | 08/14/ | Telephone | [facility] | Ashley Chávez | Other (Patient was | | 2018 | | CARDIOLOGY [place], Fruit Preserver | anxious about urgent | | | | [address] | | reports. ) | | | | [place] | | | | | | [address] | | | | | | [phone] | | | +--------+ + + + [...] Miscellaneous Notes Telephone Encounter - Ashley Chávez, Fruit Preserver - 08/14/2019 9:16 AM Seferino foster called [...] for the time being. Patient stated understanding. JDW:HAND DRY CLEANER-AAMA. [facility] umented in this encounter Plan of Treatment [...] | | | | | [place] [address] | | | | | | [phone] | | | | | | | | +--------+ + + + + | 06/26/ | Office | Cardiology | Dora De La Torre | | | 2020 | Visit | | [address] | | | | | | [address] | | | | | | [place] [address] | | | | | | [phone] | | | | | | | | +--------+ + + + + documented as of this encounter Visit Diagnoses Not on filedocumented in this encounter"
--- OUTSIDE RECORDS SUMMARY | ~2020-04-28 | XMS | Encounter Summary ---
Demographics + + + | Address | [address] | | | [place] [address] | + + + | Home Phone [...] [place] | | | | | [address] | | + + + + + Care Team Providers + +------+ + | Care Navy Diver Name | Role | Phone | [...] | | | | | [address] [facility] [address] | [place] [address] | | | | | [place] | [phone] | | | | | [address] | | | | | | [phone] | | | +--------+ + + + [...] Percocet prescription and faxed it to them ([facility]) this morning like I told them I would. Thank you for doing that, but it should not have been necessary. Telephone Encounter - Lincoln Cheema MD - 07/06/2014 8:59 PM PDTCalled regarding increased p ain. She was taking percocet. She was discharged to a [facility] on hydrocodone. I talked to the [...] [address] | | | | | | [place] [address] | | | | | | [phone] | | | | | | | | +--------+ + + + + | 06/26/ | Office | Cardiology | Dora De La Torre | | | 2019 | Visit | | [address] | | | | | | [address] | | | | | | [place] [address] | | | | | | [phone] | | | | | | | | +--------+ + + + + documented as of this encounter Visit Diagnoses Not on filedocumented in this encounter"
--- OUTSIDE RECORDS SUMMARY | ~2020-04-28 | XMS | Encounter Summary ---
Demographics + + + | Address | [address] | | | [place] [address] | + + + | Home Phone [...] [place], [place] | | | | | [address] | | + + + + + Care Team Providers + +------+ + | Care Electronic System Engineer Name | Role | Phone | + +------+ + PCP | Unavailable | + +------+ + Encounter Details +--------+ + + + + | Date | Type | Department | Care Team | Description | +--------+ + + + + | 12/09/ | Hospital | [facility] | Serafin Bautista | | | 2011 | Encounter | MED CTR XRAY [address] | | | | | [place] | [address] [place] | | | | | [place] [address] | [address] | | | | | [phone] | | | +--------+ + + + [...] | | | | | [place] [address] | | | | | | [phone] | | | | | | | | +--------+ + + + + | 06/26/ | Office | Cardiology | Dora De La Torre | | | 2019 | Visit | | [address] | | | | | | [address] | | | | | | [place] [address] | | | | | | [phone] | | | | | | | [...] [facility] Diagnostic Imaging Department | [facility] | | [address] | [facility] | | PROCEDURE NOTE EPIDURAL | [...] Juan, Rad Conversion - 11/30/2013 4:45 PM [facility] | | Diagnostic Imaging Department | | [...]
--- OUTSIDE RECORDS SUMMARY | ~2020-04-28 | XMS | Encounter Summary ---
Demographics + + + | Address | [address] | | | [place] [address] | + + + | Home Phone [...] [place] | | | | | [address] | | + + + + + Care Team Providers + +------+ + | Care Senior Accountant Analyst Name | Role | Phone | [...] + + | 02/13/ | Office | [facility] | Dora De La Torre | History of atrial | | 2020 | Visit | CARDIOLOGY [place] | [address] | fibrillation | | | | [address] | [place] | (Primary Dx); New | | | | [address] | [place] [address] | onset left bundle | | | | [place] | [phone] | branch block (LBBB); | | | | [address] | | Benign essential | | | | [phone] | | HTN; History of | | [...] | obesity) ([facility]) | +--------+---------+ + + + Social [...] 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 Her [id number] VASC score is 4 (stroke, HTN, gender) [...] She has previously seen Dr. Garland in [place], and different sleep provider in [facility] when lived over there. She previously [...] go back to volunteering at the local [employer], though this plan will need to be [...] sleep apnea Denies c ough , but DAIVLA with more extreme exertion like climbing stairs. [...] thirst or hunger. Psychiatric/Behavioral: Bipolar/Schizophrenia. Tx'd by [facility] [employer] Vaccines: Current on flu vaccine: 2019 Current on pneumonia vaccine:PPSV 23 05/29/2013 Habits/Social : Denies history of smoking. Denies EtOH use. Denies recreational or illici t drug use. Exercises sporadically. Lives in [place] . Outpatient Medications Prior to Visit Medication [...] by mouth nightly. Blood Glucose Monitoring Suppl (Xand VERIO FLEX SYSTEM) w/Device KIT by Does [...] discomfort, patient unable to walk on eriberto dmDataFlyte. Resting EKG normal sinus rhythm, arrhythmias ventricular [...] is less well-controlled LABS Labs: 12/26/2018: ( [facility])CMP: Sodium 139, potassium 4.2, chloride 99, BUN 10, creatinine 0. 7, BNP 28. CBC: WBC 7.8, hemoglobin 14.3, hematocrit 42.7, platelets 214 Labs: 09/28/2019:( [facility]) CBC: WBC 7.8, hemoglobin 14.9, hematocrit 43.8, platelets 221. C MP: Sodium 132, potassium 4.2, chloride 95, AST 76, ALT 76, alk phos 134 Labs: 10/11/2019:( [facility]) CBC: WBC 6.7, RBC 4.97, hemoglobin 15.2, hematocrit 44.7, platel ets 200. CMP: Glucose 385, BUN 7, creatinine 0.62, GFR 97, sodium 131, potassium 4.1, chlor kelby 95, albumin 4.3, total bilirubin 0.6, AST 75, ALT 73, alk phos 144. Thyroid: TSH 4.27 Labs: 10/12/2020:( [facility]) CBC: WBC 7, RBC 4.93, hemoglobin 14.7, hematocrit 44.1, platele ts 186 normal UA CMP: Glucose 381, BUN 6, creatinine 0.63, GFR 95, sodium 133, potassium 3.8 , chloride 97, albumin 4.3, total bili 0.6, AST 62, ALT 75, alk phos 145 thyroid: TSH 3.07 Labs: 10/20/2019:( [facility]) CBC: WBC 7.1, RBC 4.93, hemoglobin [...] reviewed her EKG and Echo with her radio intelligence operator Dr. Peterson, who was in clin [...] (morbid obesity) (FORMERLY [facility]) Orders Placed This Encounter Procedures ECG 12 [...] continuity of care purp osHannah BUCIO [facility] 02/15/2020 docume nted in this encounter [...] [place] | | | | | | [place] [address] | | | | | | [phone] | | | | | | | | +--------+ + + + + | 06/26/ | Office | Cardiology | Dora De La Torre | | | 2019 | Visit | | [address] | | | | | | [place] | | | | | | [place] [address] | | | | | | [phone] | | | | | | | [...] | | | | | DORA VELAZQUEZ ([id number]) on | | | | | | [...]
--- OUTSIDE RECORDS SUMMARY | ~2020-04-28 | XMS | Encounter Summary ---
Demographics + + + | Address | [address] | | | [place] [address] | + + + | Home Phone [...] [place] | | | | | [address] | | + + + + + Care Team Providers + +------+ + | Care Subassemblies Wirer Name | Role | Phone | + +------+ + | Natalee Andersen NP | PCP | | + +------+ + Encounter Details +--------+---------+ + + + | Date | Type | Department | Care Team | Description | +--------+---------+ + + + | 06/25/ | Surgery | [facility] | Frandy Teresa, | Canceled | | 2013 | | MED CTR OR INTRA OP | DO [address] | PROCEDURE NOT | | | | [address] | [address] [place], [place] | PERFORMED | | | | [place], [place] | [address] | | | | | [address] | | | | | | [phone] | | | +--------+---------+ + + + [...] + + + +---------+ + + | [place]-3 Fatty | Take 1,000 mg by | [...] en counter H&P Notes ONBRUCE ABREU [facility] - 06/21/2014 12:00 AM PDT 14 [...] at 06/26/2014 8:05 AM PDTONBRUCE ABREU [facility] - 06/26 12:00 AM PDT NBRUCE ZAMORA N [facility] - 06/26/2014 12:00 AM PDT NBASE SCAN [facility] - 06/12/2014 12:00 AM PDTElectronically signed by Mariah Schulte at 06/12 7:30 AM [facility] - 06/11/2014 12:00 AM PDT documented in this encounter Miscellaneous Notes Miscellaneous - ONBASE SCAN [facility] - 06/26/2014 12:00 AM PDT lan [...] stenosis, lumbar region, without neurogenic claudication ). Granite Polisher Machine visit is in response to an electronic spiritual care consult request. Patient wa s resting comfortably in bed; she was attended by her mom and dad - both sate nearby and see med very attentive and supportive. Cindy is Sikh, attends [employer], and is strong in her rangel. She is excited about taking care of her back problem and fe els very secure in Dr. Teresa's care. She welcomed prayer, and expressed appreciation for th visit. Follow up with regular visits, emotional and spiritual support. iscellaneo us - ONBASE SCAN [facility] - 06/25/2014 12:00 AM PDTElectronically signed [...] [place] | | | | | | [place] [address] | | | | | | [phone] | | | | | | | | +--------+ + + + + | 06/26/ | Office | Cardiology | Dora De La Torre | | | 2019 | Visit | | [address] | | | | | | [place] | | | | | | [place] [address] | | | | | | [phone] | | | | | | | [...] mL/min/1.73m2 | [facility] | | | [facility] | RATE,ESTIMATED | | MEDICAL | | | | mL/min/1.70g9Mafb than | | CENTER - | | [...] + | [facility] | [address] | [place], [place] | [phone] | | [facility] | | [address] | | | - LABORATORY | | | | + + + + + | [facility] | [address] | [place], [place] | | | [facility] | | [address] [place] [address] | | | - LABORATORY | | [...] + | [facility] | [address] | [place], [place] | [phone] | | [facility] | | [address] | | | - LABORATORY | | | | + + + + + | [facility] | [address] | [place] | | | [facility] | | [id number] | | | - LABORATORY [...] [address] | [place] | [phone] | | [facility] | | [address] | | | - LABORATORY | | | | + + + + + | [facility] | [address] | [place] | | | [facility] | | [address], [facility] | | | [...] | [facility] | | [address] | | | - BLOOD BANK | [...] + | [facility] | [address] | [place], [place] | [phone] | | [facility] | | [address] | | | - LABORATORY | | | | + + + + + | [facility] | [address] | [place], [place] | | | [facility] | | [address], [facility] | | | [...]
--- OUTSIDE RECORDS SUMMARY | ~2020-04-28 | XMS | Encounter Summary ---
Demographics + + + | Address | [address] | | | [place] [address] | + + + | Home Phone [...] [place] | | | | | [address] | | + + + + + Care Team Providers + +------+ + | Care Diesel Mechanic Helper Name | Role | Phone [...] + + | 08/21/ | Documentati | [facility] | Katharine Moncada, | Other (urgent | | 2019 | on | CARDIOLOGY [place] | Technologist | report) | | | | [address] | | | | | | [place] | | | | | | [address] | | | | | | [phone] | | | +--------+ + + + [...] | | | | | [place] [address] | | | | | | [phone] | | | | | | | | +--------+ + + + + | 06/26/ | Office | Cardiology | Dora De La Torre | | | 2020 | Visit | | [address] | | | | | | [place] | | | | | | [place] [address] | | | | | | [phone] | | | | | | | | +--------+ + + + + documented as of this encounter Visit Diagnoses Not on filedocumented in this encounter"
--- OUTSIDE RECORDS SUMMARY | ~2020-04-28 | XMS | Encounter Summary ---
Demographics + + + | Address | [address] | | | [place] [address] | + + + | Home Phone [...] [place] | | | | | [address] | | + + + + + Care Team Providers + +------+ + | Care Baseball Umpire For Little League Name | Role | Phone | + [...] + + | 08/22/ | Documentati | [facility] | Katharine Moncada, | Other (urgent | | 2019 | on | CARDIOLOGY [place] | Technologist | report) | | | | [address] | | | | | | [place] | | | | | | [address] | | | | | | [phone] | | | +--------+ + + + [...] | | | | | [place] [address] | | | | | | [phone] | | | | | | | | +--------+ + + + + | 06/26/ | Office | Cardiology | Dora De La Torre | | | 2020 | Visit | | [address] | | | | | | [place] | | | | | | [place] [address] | | | | | | [phone] | | | | | | | | +--------+ + + + + documented as of this encounter Visit Diagnoses Not on filedocumented in this encounter"
--- OUTSIDE RECORDS SUMMARY | 2020-04-28 18:46 | XMS ---
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 Security Fitness Plan Coordinator Events No recent Security Events currently on file CRITERIA MET - [facility] - Has Care Guidelines - PDMP - [facility] - 2 Visits in 30 Days CARE PROVIDERS WAYNE CAMARGO Internal Medicine 09/07/2019-Current PHONE: [phone] Kenny Palafox DO [facility] Current PHONE: [phone] Jose Ag [facility] 01/31/2019-Current PHONE: [phone] Guidelines Source: [employer] Radha Negrete Guidelines Date: 03/13/2019 Care Coordination: Mental health services are being provided by [employer].\T\nbsp; Please contact [employer] with mental health concerns.\T\nbsp; [facility] \T\nbsp; Moshe: [phone]. Care History Medical/Surgical 04/22/2020 [facility] Patient had follow up scheduled for 04/25/[address] Camargo,but was canceled by doctor.\T\nbsp; Left voice mail for patient to reschedule follow up visit. 10/23/2019 [facility] - CHW CONTACTED JONATHAN AT [facility]- PATIENT DOES NOT MEET THE ACT TEAM REQUIREMENTS FOR SERVICES DUE TO DX. - CHW SUGGESTED TO HAVE GUARDIANSHIP REVIEWED FOR PATIENT DUE TO ONGOING MENTAL HEALTH CONCERNS AND ED VISITS. - JONATHAN STATED SHE WOULD LOOK INTO THIS WITH PATIENT CURRENT CASE MANAGEMENT TEAM. - JONATHAN CAN BE CONTACTED AT [phone]. 10/15/2019 [facility] Patient still scheduled for 10/25/[address] Camargo.\T\nbsp; Phone restrictions.\T\nbsp; Not able to reach patient by phone. E.D. VISIT COUNT (12 MO.) 22 [facility]. TOTAL 22 NOTE: Visits indicate total known visits. 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 - Old myocardial infarction - Essential (primary) hypertension - Type 2 diabetes mellitus with hyperglycemia 10/11/2019 10:06 [facility] [place] TYPE: Emergency COMPLAINT: - MEDICAL CLEARANCE DIAGNOSES: - Essential (primary) hypertension - Delusional disorders - Old myocardial infarction - Delusional disorders - Allergy status to sulfonamides status - 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 - Schizoaffective disorder, unspecified 09/28/2019 13:19 JAEL Damon TYPE: Emergency COMPLAINT: - MEDICAL CLEARANCE DIAGNOSES: - Type 2 diabetes mellitus without complications - Allergy status to other drugs, medicaments and biological sub - Old myocardial infarction - 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 - Allergy status to sulfonamides status - Gastro-esophageal reflux disease without esophagitis - Essential (primary) hypertension - Suicidal ideations - Encounter for other administrative examinations 09/26/2019 10:06 [facility] [place] TYPE: Emergency COMPLAINT: - MEDICAL CLEARANCE DIAGNOSES: - 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 - Personal history of transient ischemic attack (TIA), and cere - Gastro-esophageal reflux disease without esophagitis - Allergy status to sulfonamides status - Old myocardial infarction - Schizoaffective disorder, unspecified - Allergy status to other drugs, medicaments and biological sub - Essential (primary) hypertension - 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 (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 09/25/2019 13:35 [facility] [place] TYPE: Emergency COMPLAINT: - HEARING VOICES DIAGNOSES: - Type 2 diabetes mellitus without complications - Personal history of transient ischemic attack (TIA), and cere - Gastro-esophageal reflux disease without esophagitis - Schizoaffective disorder, unspecified - Suicidal ideations - 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 - Old myocardial infarction - Allergy status to sulfonamides status - Essential (primary) hypertension - 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 - Allergy status to other drugs, medicaments and biological sub 09/18/2019 13:53 [facility] [place] TYPE: Emergency COMPLAINT: - MEDICAL CLEARANCE DIAGNOSES: - Type 2 diabetes mellitus without complications - Schizoaffective disorder, unspecified - Suicidal ideations - Allergy status to other drugs, medicaments and biological sub - Gastro-esophageal reflux disease without esophagitis - Old myocardial infarction - 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 - Essential (primary) hypertension - Rash and other nonspecific skin eruption - Allergy status to sulfonamides status - Other penitentiary (current) drug therapy 09/18/2019 10:33 [facility] [place] TYPE: Emergency COMPLAINT: - SUICIDAL THOUGHTS, HEARING VOICES DIAGNOSES: - Disorder of urea cycle metabolism, unspecified - 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 - Schizoaffective disorder, unspecified - Essential (primary) hypertension - Type 2 diabetes mellitus without complications - Gastro-esophageal reflux disease without esophagitis - Old myocardial infarction - Allergy status to sulfonamides status - Allergy status to other drugs, medicaments and biological sub - 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 (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 09/06/2019 11:40 [facility] [place] TYPE: Emergency COMPLAINT: - MEDICAL CLEARANCE DIAGNOSES: - Old myocardial infarction - Essential (primary) hypertension - Allergy status to sulfonamides status - Auditory hallucinations - Other penitentiary (current) drug therapy - Allergy status to other drugs, medicaments and biological sub - Type 2 diabetes mellitus without complications - Gastro-esophageal reflux disease without esophagitis 08/15/2019 15:26 [facility] [place] TYPE: Emergency COMPLAINT: - DIZZINESS DIAGNOSES: - Schizoaffective disorder, unspecified - 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 - Type 2 diabetes [...] ischemic attack (TIA), and cere - 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 - Allergy status to [...] Allergy status to sulfonamides status - 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 - Allergy status to [...] other drugs, medicaments and biological sub - 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 (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 of oral hypoglycemic [...] Allergy status to sulfonamides status - 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 - Essential (primary) hypertension - Auditory hallucinations Plus 2 More Visits INPATIENT VISIT TRACKING (12 MO.) 04/20/2020 17:26 [facility] [place] TYPE: Observation COMPLAINT: - SYNCOPE DIAGNOSES: - Gastro-esophageal reflux disease without esophagitis - Contact with and (suspected) exposure to other viral communic - Type 2 diabetes mellitus with hyperglycemia - Schizoaffective disorder, unspecified - Syncope and collapse - Allergy status to other drugs, medicaments and biological sub - Paroxysmal atrial fibrillation - 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
== END 2020-04-28 21:33 | disposition home or self-care (01) ==
LOC: ED 18:42
DX: Z00.8 Encounter for other general examination (principal); I10 Essential (primary) hypertension; K21.9 Gastro-esophageal reflux disease without esophagitis; E11.9 Type 2 diabetes mellitus without complications; Z88.2 Allergy status to sulfonamides; Z88.8 Allergy status to other drugs, medicaments and biological substances; Z79.899 Other long term (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
CPT/HCPCS: 99284

== ENCOUNTER 2020-05-03 19:00 | Emergency (ER) | payer MEDICARE ==
[~2020-05-03] VITALS: Ht 170.2 cm; Wt 90.7 kg
--- OUTSIDE RECORDS SUMMARY | ~2020-05-03 | XMS | Encounter Summary ---
Demographics + + + | Address | [address] | | | [place] [address] | + + + | Home Phone | | + + + | Preferred Language | Unknown | + + + | Marital Status | | + + + | Scientologist Affiliation | 1013 | + + + | Race | Unknown | + + + | Ethnic Group | Unknown | + + + Author + + + | Author | [facility] | | | and [place] | + + + | Organization | [facility] | | | and [place] | + + + | Address | Unknown | + + + | Phone | Unavailable | + + + Support + + + + + | Name | Relationship | Address | Phone | + + + + + | Araceli Sibley | ECON | [place] | | | | | [address] | | + + + + + Care Team Providers + +------+ + | Care Quarry Plant Crusher Operator Name | Role | Phone | [...] | | | spondylolist | | [address] | | | | | hesis | | [place], | | | | | Spinal | | [place] [address] | | | | | stenosis, | | Phone: | | | | | lumbar | | [phone] | | | | | region, | | Fax: | | | | | without | | [phone] | | | | | neurogenic | [...] | | | | | | | [place] | | | | | | [...] | | | | | | [place] | | | | | | | [...] | | | | | | [place] | | | | | | | [...] + + | 07/02/ | Surgery | [facility] | Frandy Teresa, | MIS L5-S1 | | 2013 | | MED CTR OR INTRA OP | DO [address] | TRANSFORAMINAL | | | | [address] | [address] [place], [place] | LUMBAR INTERBODY | | | | [place] | [id number] | FUSION | | | | [address] | | | | | | [phone] | | | +--------+---------+ + + + [...] might be different fro m the original. [facility] DISCHARGE SUMMARY PATIENT NAME: Cindy Arndt : [...] Stable for discharge to SNF. DISPOSITION: SNF ([facility]) DISCHARGE MEDICATIONS Medications prior to admission that [...] Take 15 mg by mouth nightl y. Martell-3 Fatty Acids (FISH OIL CONCENTRATE) 1000 MG [...] + + + +---------+ + + | Martell-3 Fatty | Take 1,000 mg by | [...] Lynn PA-C - 07/04/2014 7:43 AM PDT [facility] PROGRESS NOTE Pt. Name/Age/: Cindy Arndt 58 y.o. 1955 Med. Record Number: [id number] Date of admission: 07/02/2014 Subjective: The patient [...] home medications. D/C plan: Home tomorrow with [facility]. D/c mari drain and riley cath today. 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 Patient Active Problem List Diagnosis LUMBAR DISC [...] signed by: Chris Nicole, 07/04/2014 7:45 [facility] Chris Lynn PA-C - 07/03/2014 7:13 AM PDT . [facility] PROGRESS NOTE Pt. Name/Age/: Cinyd Arndt 58 y.o. 1955 Med. Record Number: [id number] Date of admission: 07/02/2014 Subjective: The patient [...] Electronically signed by: Chris Nicole, 07/03/2014 7:13 [facility] on [place], KRIS - 07/03/2014 6:50 AM [...] signed by: Frandy Teresa DO, 07/02/2014 11:15 [facility] signed by Frandy Teresa DO at 06/2014 11:15 AM PDTDreyFrandy tim DO - 07/02/2014 11:15 [id number] [address] [place] [id number] FAX: NEUROSURGERY HISTORY AND PHYSICAL EXAMINATION CHIEF [...] Take 15 mg by mouth nigh tlgaston. Martell-3 Fatty Acids (FISH OIL CONCENTRATE) 1000 MG [...] has no apparent deficits with short or 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 project manager memory. CRANIAL NERVES: II: Acuity is intact. [...] Intrinsics 5 5 Ulnar Intrinsics 5 5 Bag Making Machine Operator Strength 5 5 Hip Flexion 5 4* [...] documented in this en counter Procedure Notes [facility] - 07/12/2014 12:00 AM PDT 14 1:45 [facility] - 07/04/2014 12:00 AM PDT [facility] - 07/02/2014 12:00 AM PDT documented in this encounter Miscellaneous Notes Plan of Care - [facility] - 07/12/2014 12:00 AM PDT iscellaneous - [facility] 07/12/2014 12:00 AM PDTElec tronically signed by Mariah Schulte at 07/12/2014 1:45 PM PDTMiscellaneous - [facility] - 07/12/2014 12:00 AM PDT i scellaneous - [facility] - 07/12/2014 12:00 AM PDT [...] and I will be going to a half-way as I have 16 steps to my [...] TBD) Equipment Recommendations: tub bench;hand held shower head;disability attorney;comfort height toilet ( pt. has all necessary [...] might be different fro m the original. [facility] FACILITY TRANSFER ORDERS Patient Name: Cindy Arndt Patient : 1955 Gender: female Date of Admission: 07/02/2014 Date of Discharge: 07/05/2014 Admitting Provider: Frandy Teresa DO Discharging Provider: Chris Nicole PA-C Consultants: none PCP: Natalee Andersen [facility] transferring to: [facility] Provider after transfer: PCP and Dr. Frandy Teresa CODE STATUS: [x] Attempt CPR [] Do not resuscitate If patient is pulseless and not breathing, RN/INSTALLATION AND SERVICE TECHNICIAN may pronounce . Advanced Directives included: [] [...] for this patient. Diet: [] As tolerated SMOKE JUMPER may upgrade or downgrade diet as condition Indicates. [x] RN may downgrade diet as indicated. Type: [] Continue current diet of: Diet and Supplements Diet DIET CONSISTENT CARBOHYDRATE Number of Occurrences: -1 Days [] Other: Consistency/Precautions: [] Whole [] Thin Liquids [] Cut-up [] Tiro Thick [] Advanced Chopped [] Honey Thickened [] Chopped [] Advanced Ground [] 1:1 feedings [] Ground/Pureed [] Other: Tube Feedings: [] PEG [] GT [] JT [] NGT [] Formula type: (Public Health Inspector may change/substitute if indicated). [] Continuous Rate: [...] & Management for: ____same as above [] SMOKE JUMPER Evaluation &Management for: [] Other: Wound/Skin Care: [...] tablet 1-2 tablets Take 1-2 tablets by the rehabilitation institute every 4 hours as needed for Pain. [...] Take 15 mg by mouth ni ghtly. Martell-3 Fatty Acids (FISH OIL CONCENTRATE) 1000 MG [...] Chris Nicole PA-C, certify that post hospital alf care is medically nec essary on a continuing basis for any of the conditions for which he/she received care during this hospitalization. Check one: [x] Skilled [] Intermediate Additional Orders/Instructions: Physician's signature:__Chris Nicole PA-C 07/05/2014 13:18 [facility] NURSING FACILITY USE ONLY: [] Admitting orders [...] tolerate progressive walking and doing stairs du [facility] hospital stay due to multiple pain c/o. Attempted to see pt. 1145, however had just rec eived pain medication and requested PT return, SPL 9/10. At 1205 pt contacted PT for assist OOB due to left LE spasms and need for position change. Sitting at EOB on arrival, DIRECTOR INVESTMENT BANKING pres ent. Pt. donned LSO brace, stood [...] of endurance. When patient is walking in [facility] with a regular FWW she has to stop frequently and states she feels very weak, like sh e may fall. Patient lives alone. Outpatient prescriptions are filled at [facility]. Electronically signed by: Franca Narvaez RN 07/05/2014 10:43 lan of [facility] - 07/05/2014 10:39 AM PDTFaxed referral to Gabriela Stout and Lidia Tran. [place] : [id number] and [place]: [id number] Electronically signed by: Layne Collado 07/05/2014 10:40 Received a call from [facility]. They can accept Cindy. Received a call from [facility] and they can't accept Cindy. Tanna [facility] called and they don't have any beds at this time Electronically signed by: Layne Collado 07/05/2014 12:22 Started the SNF packet. Electronically signed by: Layne Collado 07/05/2014 12:56 [facility] of [facility] Sandhya Benites RN - 07/05/2014 5:14 [...] TBD) Equipment Recommendations: tub bench;hand held shower head;disability attorney;comfort height toilet ( pt. has all necessary equipment) Planned Interventions: ADL retraining;transfer training Patient Status/Goals Reflects last filed data of patient status; may be from multiple contributors. Grooming: Status: did not occur today Assist: Utilizes: STG: Status: New Goal:modified independent LTG: Status: Goal: UE Dressing: Status: SBA Assist: Utilizes: STG: Status: Goal: LTG: Status: Goal: LE Dressing: Status: SBA Utilizes: disability attorney STG: Status: New Goal: modified independent LTG: [...] bed mobil ity. Pt has been using PRODUCT GRADER and pain pills during the night. Zofran [...] by herself in a small apartment in [place]. Patient states she has her apartment set [...] [facility] from [facility] [place]. She states the Said she might benefit fr Home Health upon discharge. She would like me to contact [facility] to giv e them a heads up. I called and spoke to Summer at [facility] , told her patients PCP i s [...] Pt. resting in bed on arrival, used PRODUCT GRADER x 2 during session. SPL 5/10. Pt. hoping to urinate cardroom worker to straight cath. Sidelying to sit at [...] TBD) Equipment Recommendations: tub bench;hand held shower head;disability attorney;comfort height toilet ( pt. has all necessary [...] & Review . Outcome: Progressing Pt using PRODUCT GRADER and PO pain pills, c/o numbness on [...] and on a continuous oximeter for her PRODUCT GRADER. She was unable to do her IS because o f the medications. She has the IS at bedside with a goal of 2400. She did not require additi onal respiratory care throughout the evening. p Note - Frandy Teresa, DO - 07/02/2014 2:25 PM PDTDATE: 07/02/2014 SURGEON: Frandy Teresa MD. BAGGAGE CHECKER: ZANE Oh PREOPERATIVE DIAGNOSES 1. Spondylolisthesis, [...] x 26 mm Capstone PEEK cage from [facility] was chosen. It was filled with Infus [...] Note Cindy Arndt 58 y.o. female 1955 [id number] Proc. Date 07/02/2014 Preop Dx Spondylolisthesis L5-S1 Postop Dx same Procedure Procedure(s):MIS L5-S1 TRANSFORAMINAL LUMBAR INTERBODY FUSION Anesthesia General Surgeon Frandy Teresa DO Bilingual Manager ZANE Oh EBL 100 mL Findings Findings consistent with scheduled procedure. No other abnormalities found. Complications none Specimens * No specimens in log * Drains Electronically signed by: Frandy Teresa DO 07/02/2014 14:22 [facility] documented in this en counter Plan of [...] [address] | | | | | | [place] [address] | | | | | | [phone] | | | | | | | | +--------+ + + + + | 06/26/ | Office | Cardiology | Dora De La Torre | | | 2019 | Visit | | [address] | | | | | | [address] | | | | | | [place] [address] | | | | | | [phone] | | | | | | | [...] + | [facility] | [address] | [place], [place] | [phone] | | [facility] | | [address] | | | - LABORATORY | | | | + + + + + | [facility] | [address] | [place] | | | [facility] | | [address] [place] [address] | | | - LABORATORY | | [...] + | [facility] | [address] | [place] | [phone] | | [facility] | | [address] | | | - LABORATORY | | | | + + + + + | [facility] | [address] | [place] | | | [facility] | | [address], [facility] | | | - LABORATORY | [...] | | POC | | | [facility] | | | | | | [...] + | [facility] | [address] | [place] | [phone] | | [facility] | | [address] | | | - LABORATORY | | | | + + + + + | [facility] | [address] | [place], [place] | | | [facility] | | [address] | | | - LABORATORY | [...] + | [facility] | [address] | [place], [place] | [phone] | | [facility] | | [address] | | | - LABORATORY | | | | + + + + + | [facility] | [address] | [place], [place] | | | [facility] | | [address], [facility] | | | - LABORATORY | [...] [address] | [place] | [phone] | | [facility] | | [address] | | | - LABORATORY | | | | + + + + + | [facility] | [address] | [place] | | | [facility] | | [address], [facility] | | | - LABORATORY | [...] + | [facility] | [address] | [place] | [phone] | | [facility] | | [address] | | | - LABORATORY | | | | + + + + + | [facility] | [address] | [place], [place] | | | [facility] | | [address], [facility] | | | - LABORATORY | [...] [address] | [place] | [phone] | | [facility] | | [address] | | | - LABORATORY | | | | + + + + + | [facility] | [address] | [place] | | | [facility] | | [address] | | | - LABORATORY | [...] + | [facility] | [address] | [place] | [phone] | | [facility] | | [address] | | | - LABORATORY | | | | + + + + + | [facility] | [address] | [place] | | | [facility] | | [address], [facility] | | | - LABORATORY | [...] + | [facility] | [address] | [place] | [phone] | | [facility] | | [address] | | | - LABORATORY | | | | + + + + + | [facility] | [address] | [place], [place] | | | [facility] | | [address] | | | - LABORATORY [...] | of hardware for posterior fusion from G6gpdwdab S1 with interbody hardware at L5-S1. The [...] + | MISCELLANEOUS LAB | | | [phone] | + +---------+ + + | MISCELANIOUS LAB | | | [phone] | + +---------+ + + POC Glucose [...] + | [facility] | [address] | [place], [place] | [phone] | | [facility] | | [address] | | | - LABORATORY | | | | + + + + + | [facility] | [address] | [place] | | | [facility] | | [address] [place] [address] | | | - LABORATORY | | [...] + | [facility] | [address] | [place] | [phone] | | [facility] | | [address] | | | - LABORATORY | | | | + + + + + | [facility] | [address] | [place] | | | [facility] | | [address], [facility] | | | - LABORATORY | [...] + | [facility] | [address] | [place] | [phone] | | [facility] | | [address] | | | - LABORATORY | | | | + + + + + | [facility] | [address] | [place] | | | [facility] | | [address], [facility] | | | - LABORATORY | [...] + | [facility] | [address] | [place], [place] | [phone] | | [facility] | | [address] | | | - LABORATORY | | | | + + + + + | [facility] | [address] | [place], [place] | | | [facility] | | [address] | | | - LABORATORY | [address] | [place] | [phone] | | [facility] | | [address] | | | - LABORATORY | | | | + + + + + | [facility] | [address] | [place] | | | [facility] | | [address], [facility] | | | - LABORATORY | [...] St | [place] | | | [facility] | | [address] | | | - BLOOD BANK | [...] mLs | | Surgical | | 1:200,000 0.25-1:375815 % | | 14 12:42 | | [...]
--- OUTSIDE RECORDS SUMMARY | ~2020-05-03 | XMS | Encounter Summary ---
Demographics + + + | Address | [address] | | | [place] [address] | + + + | Home Phone | | + + + | Preferred Language | Unknown | + + + | Marital Status | Single | + + + | Alevism Affiliation | Unknown | + + + [...] [place] | | | | | [address] | | + + + + + Care Team Providers + +------+ + | Care Thermodynamics Professor Name | Role | Phone | + [...] [id number] | | | | | | [place], [place] | | | | | | [address] | | | | | | [phone] | | | +--------+ + + + [...] | + + + + + | [facility] | [address] | [place] [address] | | | PATHOLOGY | [address] [...] Re | | | | | | [phone] | | | | + + + + + + + + | Specimen | + + | | + + + + + + + | Performing | Address | City/State/Zipcode | Phone Number | | Organization | | | | + + + + + | [facility] | [address] | [place] [address] | | | PATHOLOGY | [address] [...] Re | | | | | | [phone] | | | | + + + + + + + + | Specimen | + + | | + + + + + + + | Performing | Address | City/State/Zipcode | Phone Number | | Organization | | | | + + + + + | [facility] | [address] | [place] [address] | | | PATHOLOGY | [address] [...] Re | | | | | | [address] | | | | + + + + + + + + | Specimen | + + | | + + + + + + + | Performing | Address | City/State/Zipcode | Phone Number | | Organization | | | | + + + + + | [facility] | [address] | [place] [address] | | | PATHOLOGY | [address] | | | + + + [...] Re | | | | | | [phone] | | | | + + + + + + + + | Specimen | + + | | + + + + + + + | Performing | Address | City/State/Zipcode | Phone Number | | Organization | | | | + + + + + | [facility] | [address] | [place] [address] | | | PATHOLOGY | [address] | | | + + + + + documented in this encounter Visit Diagnoses Not on filedocumented in this encounter"
--- OUTSIDE RECORDS SUMMARY | ~2020-05-03 | XMS | Encounter Summary ---
Demographics + + + | Address | [address] | | | [place] [address] | + + + | Home Phone [...] [place], [place] | | | | | [address] | | + + + + + Care Team Providers + +------+ + | Care Space And Missile Operations Name | Role | Phone | + +------+ + PCP | Unavailable | + +------+ + Encounter Details +--------+ + + + + | Date | Type | Department | Care Team | Description | +--------+ + + + + | 01/25/ | Hospital | [facility] | | | | 2002 | Encounter | MED CTR XRAY [address] | | | | | | [address] | | | | | | [place] [address] | | | | | | [phone] | | | +--------+ + + + [...] | | | | | | [place] [address] | | | | | | [phone] | | | | | | | | +--------+ + + + + | 06/26/ | Office | Cardiology | Dora De La Torre | | | 2019 | Visit | | [address] | | | | | | [address] | | | | | | [place] [address] | | | | | | [phone] | | | | | | | | +--------+ + + + + documented as of this encounter Visit Diagnoses Not on filedocumented in this encounter"
--- OUTSIDE RECORDS SUMMARY | ~2020-05-03 | XMS | Encounter Summary ---
Demographics + + + | Address | [address] | | | [place] [address] | + + + | Home Phone [...] [place], [place] | | | | | [address] | | + + + + + Care Team Providers + +------+ + | Care Seismic Observer Name | Role | Phone | + +------+ + PCP | Unavailable | + +------+ + Encounter Details +--------+ + + + + | Date | Type | Department | Care Team | Description | +--------+ + + + + | 03/13/ | Hospital | [facility] | | | | 1996 - | Encounter | MED CTR GENERIC OP | | | | | | CONV DEPT [address] | | | | 03/21/ | | [address], | | | | 1996 | | [place] [address] | | | | | | [phone] | | | +--------+ + + + [...] [address] | | | | | | [place] [address] | | | | | | [phone] | | | | | | | | +--------+ + + + + | 06/26/ | Office | Cardiology | Dora De La Torre | | | 2019 | Visit | | [address] | | | | | | [address] | | | | | | [place] [address] | | | | | | [phone] | | | | | | | | +--------+ + + + + documented as of this encounter Visit Diagnoses Not on filedocumented in this encounter"
--- OUTSIDE RECORDS SUMMARY | ~2020-05-03 | XMS | Encounter Summary ---
Demographics + + + | Address | [address] | | | [place] [address] | + + + | Home Phone [...] [place] | | | | | [address] | | + + + + + Care Team Providers + +------+ + | Care Outreach Consultant Name | Role | Phone | [...] + + | 06/28/ | Telephone | [facility] | Ashley Chávez | Other (Patient | | 2018 | | CARDIOLOGY [place], Evening Sitter | called to cancel her | | | | [address] | | appointment) | | | | [place] | | | | | | [address] | | | | | | [phone] | | | +--------+ + + + [...] Miscellaneous Notes Telephone Encounter - Ashley Chávez, Evening Sitter - 06/28/2019 2:12 PM PDTPatigutierrez t said that she already got the result for her ECHO, so she decided to cancel her FU with Dr Peterson. I asked patient if she wanted to reschedule for another time, and she said she wants to FU as needed. I went ahead and canceled her appointment. BRODY:NABILAMA. [facility] in this encounter Plan of Treatment +--------+ + + + + | Date | Type | Specialty | Care Team | Description | +--------+ + + + + | 05/29/ | Procedure | Cardiology | Dora De La Torre | | | 2019 | visit | | [address] | | | | | | [address] | | | | | | [place] [address] | | | | | | [phone] | | | | | | | | +--------+ + + + + | 06/26/ | Office | Cardiology | Dora De La Torre | | | 2019 | Visit | | [address] | | | | | | [address] | | | | | | [place] [address] | | | | | | [phone] | | | | | | | | +--------+ + + + + documented as of this encounter Visit Diagnoses Not on filedocumented in this encounter"
--- OUTSIDE RECORDS SUMMARY | ~2020-05-03 | XMS | Encounter Summary ---
Demographics + + + | Address | [address] | | | [place] [address] | + + + | Home Phone [...] [place] | | | | | [address] | | + + + + + Care Team Providers + +------+ + | Care Dairy Equipment Repairer Name | Role | Phone | + +------+ + | Thierry Fry MD | PCP | | + +------+ + Reason for Visit + +--------+ + | Reason | Onset | Comments | | | Date | | + +--------+ + | Medication Prior | 03/26/ | Dexilant 60Mg | | Authorization | 2014 | | + +--------+ + Encounter Details +--------+ + + + + | Date | Type | Department | Care Team | Description | +--------+ + + + + | 03/26/ | Telephone | [facility] | Thierry Fry | Medication Prior | | 2014 | | MEDICINE [address] [place] [address] | MD Lisa [address] | Authorization | | | | [employer] [employer], | [employer] [place] | (Dexilant 60Mg) | | | | [place] [id number] | [id number] | | | | | [phone] | | | +--------+ + + + [...] Telephone Encounter - Zelda Corrales RN - 04/03/2015 12:29 PM PDTCall placed to David plascencia and delivered message regarding Dexilant denial. Cindy verbalized good understanding a nd declined to try any of the 4 alternatives. She stated that she has been drinking aloe edison a juice in the mornings and is having good results with this. Dexilant discontinued.Electron ically signed by Zelda Corrales RN at 04/03/2015 12:32 PM PDTTelephone Encounter - Heather Cade RN - 04/02/2015 2:18 PM PDTLeft a message for the patient to call Electronical ly signed by Heather Billings RN at 04/02/2015 2:19 PM PDTTelephone Encounter - Katharine Cardona PA-C - 04/01/2015 4:19 PM PDTPlease call pt and let her know this has been denied. We will be happy to call in one of the others. I don't know what provider originally prescribed thi s, but she needs to use one of the meds listed. Thanks, LM elephone Encounter - Heather Billings RN - 04/01/2015 2: 35 PM PDTForms were not received I contacted insurance ID# [id number] This has been denied. The patient must try and fail 2 of the following Omeprazole Protonix Prevacid Nexium Please advise elepho ne Encounter - Saba Acosta Cert MA - 03/26/2015 1:32 PM PDTCalled and requested a prior authorization Requested for via fax from [facility] Prior auth medication Dexilant 60MgElectronically signed by Faustina Aquino MA at 03/26 1:52 PM PDTdocumented in this encounter Plan of [...] | | | | | [place] [address] | | | | | | [phone] | | | | | | | | +--------+ + + + + | 06/26/ | Office | Cardiology | Dora De La Torre | | | 2020 | Visit | | [address] | | | | | | [address] | | | | | | [place] [address] | | | | | | [phone] | | | | | | | | +--------+ + + + + documented as of this encounter Visit Diagnoses Not on filedocumented in this encounter"
--- OUTSIDE RECORDS SUMMARY | ~2020-05-03 | XMS | Encounter Summary ---
Demographics + + + | Address | [address] | | | [place] [address] | + + + | Home Phone [...] [place], [place] | | | | | [address] | | + + + + + Care Team Providers + +------+ + | Care Electrical Logging Operator Name | Role | Phone | + +------+ + PCP | Unavailable | + +------+ + Encounter Details +--------+ + + + + | Date | Type | Department | Care Team | Description | +--------+ + + + + | 12/27/ | Hospital | [facility] | | | | 1997 - | Encounter | MED CTR GENERIC PSY | | | | | | CONV DEPT [address] | | | | 01/01/ | | [place], | | | | 1997 | | [place] [address] | | | | | | [phone] | | | +--------+ + + + [...] [address] | | | | | | [place] [address] | | | | | | [phone] | | | | | | | | +--------+ + + + + | 06/26/ | Office | Cardiology | Dora De La Torre | | | 2019 | Visit | | [address] | | | | | | [address] | | | | | | [place] [address] | | | | | | [phone] | | | | | | | | +--------+ + + + + documented as of this encounter Visit Diagnoses Not on filedocumented in this encounter"
--- OUTSIDE RECORDS SUMMARY | ~2020-05-03 | XMS | Encounter Summary ---
Demographics + + + | Address | [address] | | | [place] [address] | + + + | Home Phone | | + + + | Preferred Language | Unknown | + + + | Marital Status | | + + + | Muslim Affiliation | 1013 | + + + | Race | Unknown | + + + | Ethnic Group | Unknown | + + + Author + + + | Author | [facility] | | | and [place] | + + + | Organization | [facility] | [...] [place] | | | | | [address] | | + + + + + Care Team Providers + +------+ + | Care P[place] Name | Role | Phone | + [...] + + | 04/05/ | Telephone | [facility] [place] | [facility], | [facility] | | 2012 | | GASTROENTEROLOGY | FOR[address]UNATO Thomas [address] | | | | | [address] | [address] | | | | | [address] [place], [place] | [place], [place] | | | | | [address] | [address] | | | | | [phone] | | | +--------+ + + + [...] [address] | | | | | | [place] [address] | | | | | | [phone] | | | | | | | | +--------+ + + + + | 06/26/ | Office | Cardiology | Dora De La Torre | | | 2019 | Visit | | [address] | | | | | | [address] | | | | | | [place] [address] | | | | | | [phone] | | | | | | | | +--------+ + + + + documented as of this encounter Visit Diagnoses Not on filedocumented in this encounter"
--- OUTSIDE RECORDS SUMMARY | ~2020-05-03 | XMS | Encounter Summary ---
Demographics + + + | Address | [address] | | | [place] [address] | + + + | Home Phone [...] [place] | | | | | [address] | | + + + + + Care Team Providers + +------+ + | Care Cinder Dump Crane Operator Name | Role | Phone | + +------+ + | Basim Bolanos MD | PCP | | + +------+ + Encounter Details +--------+ + + + + | Date | Type | Department | Care Team | Description | +--------+ + + + + | 01/24/ | Abstract | [facility] [place] | [facility], | | | 2012 | | GASTROENTEROLOGY | [address]O Thomas [address] | | | | | [address] | [address] | | | | | [address] [place], [place] | [place], [place] | | | | | [address] | [address] | | | | | [phone] | | | +--------+ + + + [...] | | | | | [place] [address] | | | | | | [phone] | | | | | | | | +--------+ + + + + | 06/26/ | Office | Cardiology | Dora De La Torre | | | 2019 | Visit | | [address] | | | | | | [address] | | | | | | [place] [address] | | | | | | [phone] | | | | | | | | +--------+ + + + + documented as of this encounter Visit Diagnoses Not on filedocumented in this encounter"
--- OUTSIDE RECORDS SUMMARY | ~2020-05-03 | XMS | Encounter Summary ---
Demographics + + + | Address | [address] | | | [place] [address] | + + + | Home Phone [...] [place] | | | | | [address] | | + + + + + Care Team Providers + +------+ + | Care Farm Management Agent Name | Role | Phone | [...] + + | 03/06/ | Office | [facility] | Deon Gonzales | ROGERS (obstructive | | 2012 | Visit | SLEEP DISORDER [address] | MD Laure[address] | sleep apnea) | | | | [address] [place] | [address] [place] | (Primary Dx); | | | | [place] [address] | [place] [address] | Sleepiness | | | | [phone] | [phone] | | | | | | | [...] differen t from the original. 03/06/13 1000 [place] Sleepiness Scale Sitting and reading 3 Watching [...] by mouth Daily., Disp: , Rfl: ; [place]-3 Fatty Acids (FISH OIL CONCENTRATE) 1000 [...] th is encounter Miscellaneous Notes Miscellaneous - [facility] - 03/06/2013 12:00 AM PDT iscellaneous - [facility] - 03/06/2013 12:00 AM PDTEle ctronically signed [...] | | | | | | [place] [address] | | | | | | [phone] | | | | | | | | +--------+ + + + + | 06/26/ | Office | Cardiology | Dora De La Torre | | | 2019 | Visit | | [address] | | | | | | [address] | | | | | | [place] [address] | | | | | | [phone] | | | | | | | | +--------+ + + + + documented as of this encounter Visit Diagnoses + + | Diagnosis | + + | ROGERS (obstructive sleep apnea) - Primary Obstructive sleep apnea (adult) (pediatric) | + + | Sleepiness Other alteration of consciousness | + + documented in this encounter"
--- OUTSIDE RECORDS SUMMARY | ~2020-05-03 | XMS | Encounter Summary ---
Demographics + + + | Address | [address] | | | [place] [address] | + + + | Home Phone [...] [place] | | | | | [address] | | + + + + + Care Team Providers + +------+ + | Care Jewelry Salesperson Name | Role | Phone | [...] + + | 08/16/ | Documentati | [facility] | Katharine Moncada, | Other (urgent | | 2019 | on | CARDIOLOGY [place] | Technologist | report) | | | | [address] | | | | | | [place] | | | | | | [address] | | | | | | [phone] | | | +--------+ + + + [...] | | | | | [place] [address] | | | | | | [phone] | | | | | | | | +--------+ + + + + | 06/26/ | Office | Cardiology | Dora De La Torre | | | 2020 | Visit | | [address] | | | | | | [address] | | | | | | [place] [address] | | | | | | [phone] | | | | | | | | +--------+ + + + + documented as of this encounter Visit Diagnoses Not on filedocumented in this encounter"
--- OUTSIDE RECORDS SUMMARY | ~2020-05-03 | XMS | Clinical Summary ---
Demographics + + + | Address | [address] | | | [place] [address] | + + + | Home Phone | | + + + | Preferred Language | Unknown | + + + | Marital Status | Single | + + + | Cheondoism Affiliation | Unknown | + + + [...] [place] | | | | | [address] | | + + + + + Care Team Providers + +------+ + | Care Cupola Melting Supervisor Name | Role | Phone | + +------+ + PCP | Unavailable | + +------+ + Source Comments EDWARD is fully live on both [facility] Ambulatory and [facility] InPatient.[facility] Allergies Not on File Medications Not [...] | MEDICA | xxxxxxxxxx | 02/22/20 | [phone] | [address] | Medica | | | RE A & | | 15-Pre | 1 | [address] | re | | | B | | sent | | [place] | | | | | | | | [address] | | + +--------+ +--------+ + +--------+ + +--------+ +--------+ + + | Guarantor Name | Accoun | Relation to | Date | Phone | Billing Address | | | t Type | Patient | of | | | | | | | | | | + +--------+ +--------+ + + | CINDY ARNDT | Person | Self | [birth year] | [address] | | al/Fam | | 1955 | [phone] | [address] [place] | | | devonte | | | 5 (Home) | [address] | + +--------+ +--------+ + +"
--- OUTSIDE RECORDS SUMMARY | ~2020-05-03 | XMS | Encounter Summary ---
Demographics + + + | Address | [address] | | | [place] [address] | + + + | Home Phone [...] [place] | | | | | [address] | | + + + + + Care Team Providers + +------+ + | Care Die Attaching Machine Tender Name | Role | Phone | + +------+ + | Natalee Andersen NP | PCP | | + +------+ + Encounter Details +--------+ + + + + | Date | Type | Department | Care Team | Description | +--------+ + + + + | 07/25/ | Hospital | [facility] | Frandy Teresa, | Status post lumbar | | 2014 | Encounter | MED CTR XRAY [address] | DO [address] | spinal fusion | | | | [place] | [address] [place], [place] | | | | | [place] [address] | [address] | | | | | [phone] | | | +--------+ + + + [...] + + + +---------+ + + | [place]-3 Fatty | Take 1,000 mg by [...] | 05/29/ | Procedure | Cardiology | RoxannmarianlarryDora | | | 2019 | visit | | [address] | | | | | | [address] [place] | | | | | | [place] [address] | | | | | | [phone] | | | | | | | | +--------+ + + + + | 06/26/ | Office | Cardiology | Dora De La Torre | | | 2020 | Visit | | [address] | | | | | | [address] [place] | | | | | | [place] [address] | | | | | | [phone] | | | | | | | [...] + | MISCELLANEOUS LAB | | | [phone] | + +---------+ + + | MISCELANIOUS LAB | | | [phone] | + +---------+ + + documented in this encounter Visit Diagnoses + + | Diagnosis | + + | Status post lumbar spinal fusion Arthrodesis status | + + documented in this encounter"
--- OUTSIDE RECORDS SUMMARY | ~2020-05-03 | XMS | Encounter Summary ---
Demographics + + + | Address | [address] | | | [place] [address] | + + + | Home Phone [...] [place] | | | | | [address] | | + + + + + Care Team Providers + +------+ + | Care Central Supply Aide Name | Role | Phone | + +------+ + | Natalee Andersen NP | PCP | | + +------+ + Encounter Details +--------+ + + + + | Date | Type | Department | Care Team | Description | +--------+ + + + + | 06/26/ | Hospital | [facility] | Heather Cordero PT | | | 2014 | Encounter | MED CTR ACUTE | [address] | | | | | PHYSICAL THERAPY | [place] | | | | | [address] [place] | [address] | | | | | [place] [address] | | | | | | [phone] | | | +--------+ + + + [...] | | | | | [place] [address] | | | | | | [phone] | | | | | | | | +--------+ + + + + | 06/26/ | Office | Cardiology | Dora De La Torre | | | 2020 | Visit | | [address] | | | | | | [address] | | | | | | [place] [address] | | | | | | [phone] | | | | | | | | +--------+ + + + + documented as of this encounter Visit Diagnoses Not on filedocumented in this encounter"
--- OUTSIDE RECORDS SUMMARY | ~2020-05-03 | XMS | Encounter Summary ---
Demographics + + + | Address | [address] | | | [place] [address] | + + + | Home Phone [...] [place] | | | | | [address] | | + + + + + Care Team Providers + +------+ + | Care Network Support Name | Role | Phone | + +------+ + | Adriano Patrick MD | PCP | | + +------+ + Encounter Details +--------+ + + + + | Date | Type | Department | Care Team | Description | +--------+ + + + + | 06/10/ | Abstract | [facility] [place] [facility] | Thierry rFy | | | 2014 | | MEDICINE [facility] RICH | MD Lisa [address] | | | | [address] [place], | [place], [place] | | | | | [place] [address] | [address] | | | | | [phone] | | | +--------+ + + + [...] | | | | | [place] [address] | | | | | | [phone] | | | | | | | | +--------+ + + + + | 06/26/ | Office | Cardiology | Dora De La Torre | | | 2019 | Visit | | [address] | | | | | | [address] | | | | | | [place] [address] | | | | | | [phone] | | | | | | | [...] + +-------+ + + + External Lab: Pina DE LA CRUZ (02/17/2015) + +-------+ + + + | [...]
--- OUTSIDE RECORDS SUMMARY | ~2020-05-03 | XMS | Encounter Summary ---
Demographics + + + | Address | [address] | | | [place] [address] | + + + | Home Phone [...] [place] | | | | | [address] | | + + + + + Care Team Providers + +------+ + | Care Butadiene Compressor Operator Name | Role | Phone | [...] + + | 08/22/ | Documentati | [facility] | Katharine Moncada, | Other (urgent | | 2019 | on | CARDIOLOGY [place] | Technologist | report) | | | | [address] | | | | | | [place] | | | | | | [address] | | | | | | [phone] | | | +--------+ + + + [...] | | | | | [place] [address] | | | | | | [phone] | | | | | | | | +--------+ + + + + | 06/26/ | Office | Cardiology | Dora De La Torre | | | 2020 | Visit | | [address] | | | | | | [address] | | | | | | [place] [address] | | | | | | [phone] | | | | | | | | +--------+ + + + + documented as of this encounter Visit Diagnoses Not on filedocumented in this encounter"
--- OUTSIDE RECORDS SUMMARY | ~2020-05-03 | XMS | Encounter Summary ---
Demographics + + + | Address | [address] | | | [place] [address] | + + + | Home Phone [...] [place] | | | | | [address] | | + + + + + [...] | | | [address], | [place] [address] | | | | | [place] [address] | [phone] | | | | | [phone] | | | +--------+--------+ + + + [...] [address] | | | | | | [place] [address] | | | | | | [phone] | | | | | | | | +--------+ + + + + | 06/26/ | Office | Cardiology | Dora De La Torre | | | 2020 | Visit | | [address] | | | | | | [address] | | | | | | [place] [address] | | | | | | [phone] | | | | | | | | +--------+ + + + + documented as of this encounter Visit Diagnoses + + | Diagnosis | + + | Essential hypertension - Primary Unspecified essential hypertension | + + documented in this encounter"
--- OUTSIDE RECORDS SUMMARY | ~2020-05-03 | XMS | Encounter Summary ---
Demographics + + + | Address | [address] | | | [place] [address] | + + + | Home Phone [...] [place] | | | | | [address] | | + + + + + Care Team Providers + +------+ + | Care Interactive Multimedia Designer Name | Role | Phone | [...] + + | 09/19/ | Telephone | [facility] | Ashley Chávez | Other (Patient | | 2018 | | CARDIOLOGY [place] Abad, School Health Assistant | calling to be seen | | | | [address] | | mirella. ) | | | | [place] | | | | | | [address] | | | | | | [phone] | | | +--------+ + + + [...] Miscellaneous Notes Telephone Encounter - Ashley Chávez School Health Assistant - 09/19/2019 10:41 AM PSTCall m cierra to patient to advise of Dr. Peterson's notes. Patient stated understanding. Patient asked why she couldn't be seen sooner, and I reminded her that we offered her a monae ner appointment that she turned down. Patient said thank you and hung up. CLAYTONW:MANGO. el ephone Encounter - Ashley Chávez School Health Assistant - 09/19/2019 10:40 AM PST Dora De La Torre, [place] Peterson DO; Ashley Chávez School Health Assistant So just an FYI: we offered her appointment today at 3 pm but she turned it down, and said she would keep scheduled appt. el ephone Encounter - Ashley Chávez School Health Assistant - 09/19/2019 10:38 AM PST----- Mess age [...] she needs to be seen by a javascript developer. I have asked Lizeth to call her [...] help her pulse? Please advise. Thank you! [facility] rocky in this encounter Plan of Treatment +--------+ [...] [address] | | | | | | [place] [address] | | | | | | [phone] | | | | | | | | +--------+ + + + + | 06/26/ | Office | Cardiology | Dora De La Torre | | | 2020 | Visit | | [address] | | | | | | [address] | | | | | | [place] [address] | | | | | | [phone] | | | | | | | | +--------+ + + + + documented as of this encounter Visit Diagnoses Not on filedocumented in this encounter"
--- OUTSIDE RECORDS SUMMARY | ~2020-05-03 | XMS | Encounter Summary ---
Demographics + + + | Address | [address] | | | [place] [address] | + + + | Home Phone [...] [place], [place] | | | | | [address] | | + + + + + Care Team Providers + +------+ + | Care Soap Slabber Name | Role | Phone | + [...] | | | | | | [address] [facility] | | | | | | [place], [place] | | | | | | [address] | | | | | | [phone] | | | +--------+ + + + [...] | | | | | [place] [address] | | | | | | [phone] | | | | | | | | +--------+ + + + + | 06/26/ | Office | Cardiology | Dora De La Torre | | | 2020 | Visit | | [address] | | | | | | [address] | | | | | | [place] [address] | | | | | | [phone] | | | | | | | | +--------+ + + + + documented as of this encounter Visit Diagnoses Not on filedocumented in this encounter"
--- OUTSIDE RECORDS SUMMARY | ~2020-05-03 | XMS | Encounter Summary ---
Demographics + + + | Address | [address] | | | [place] [address] | + + + | Home Phone [...] [place], [place] | | | | | [address] | | + + + + + Care Team Providers + +------+ + | Care Associate Professor Of Physics Name | Role | Phone | + +------+ + PCP | Unavailable | + +------+ + Encounter Details +--------+ + + + + | Date | Type | Department | Care Team | Description | +--------+ + + + + | 12/31/ | Hospital | [facility] | | | | 1996 | Encounter | MED CTR XRAY [address] | | | | | | [address] | | | | | | [place] [address] | | | | | | [phone] | | | +--------+ + + + [...] | | | | | [place] [address] | | | | | | [phone] | | | | | | | | +--------+ + + + + | 06/26/ | Office | Cardiology | Dora De La Torre | | | 2019 | Visit | | [address] | | | | | | [address] | | | | | | [place] [address] | | | | | | [phone] | | | | | | | | +--------+ + + + + documented as of this encounter Visit Diagnoses Not on filedocumented in this encounter"
--- OUTSIDE RECORDS SUMMARY | ~2020-05-03 | XMS | Encounter Summary ---
Demographics + + + | Address | [address] | | | [place] [address] | + + + | Home Phone | | + + + | Preferred Language | Unknown | + + + | Marital Status | Single | + + + | Taoism Affiliation | Unknown | + + + [...] [place] | | | | | [address] | | + + + + + Care Team Providers + +------+ + | Care Silverer Name | Role | Phone | + [...] | Transcriptions | + + | Interface, Filtering Machine Tender Helper In - 10/24/2006 3:09 AM PST | | [facility] | | [address] [place], [place] [address] [place] | | [facility] CenterOPERATION RECORDMed Rec No.: [id number] Date: [...]
--- OUTSIDE RECORDS SUMMARY | ~2020-05-03 | XMS | Encounter Summary ---
Demographics + + + | Address | [address] | | | [place] [address] | + + + | Home Phone [...] [place], [place] | | | | | [address] | | + + + + + Care Team Providers + +------+ + | Care Patent Agent Name | Role | Phone | + +------+ + PCP | Unavailable | + +------+ + Encounter Details +--------+ + + + + | Date | Type | Department | Care Team | Description | +--------+ + + + + | 03/26/ | Hospital | [facility] | | | | 2001 | Encounter | MED CTR LABORATORY | | | | | | [address] | | | | | | [place] | | | | | | [address] | | | | | | [phone] | | | +--------+ + + + [...] | | | | | [place] [address] | | | | | | [phone] | | | | | | | | +--------+ + + + + | 06/26/ | Office | Cardiology | Dora De La Torre | | | 2020 | Visit | | [address] | | | | | | [address] | | | | | | [place] [address] | | | | | | [phone] | | | | | | | | +--------+ + + + + documented as of this encounter Visit Diagnoses Not on filedocumented in this encounter"
--- OUTSIDE RECORDS SUMMARY | ~2020-05-03 | XMS | Encounter Summary ---
Demographics + + + | Address | [address] | | | [place] [address] | + + + | Home Phone [...] [place] | | | | | [address] | | + + + + + Care Team Providers + +------+ + | Care Public Health Informatician Name | Role | Phone | + [...] updated | | | | | [address], | address | | | | | [address] [place] | | | | | | [place] [address] | | | | | | [phone] | | | +--------+ + + + [...] stroke work up she had done at [facility] was quite thorough and she did not [...] [address] | | | | | | [place] [address] | | | | | | [phone] | | | | | | | | +--------+ + + + + | 06/26/ | Office | Cardiology | Dora De La Torre | | | 2019 | Visit | | [address] | | | | | | [address] | | | | | | [place] [address] | | | | | | [phone] | | | | | | | | +--------+ + + + + documented as of this encounter Visit Diagnoses Not on filedocumented in this encounter"
--- OUTSIDE RECORDS SUMMARY | ~2020-05-03 | XMS | Encounter Summary ---
Demographics + + + | Address | [address] | | | [place] [address] | + + + | Home Phone [...] [place] | | | | | [address] | | + + + + + Care Team Providers + +------+ + | Care Handhole Machine Operator Name | Role | Phone [...] + | 05/13/ | Telephone | [facility] | Frandy Teresa, | Other | | 2013 | | NEUROSURGERY [address] | DO [address] | | | | | [address] | [address] [place], [place] | | | | | [place], [place] | [id number] | | | | | [address] | | | | | | [phone] | | | +--------+ + + + [...] | | | | [place] [address] | | | | | | [phone] | | | | | | | | +--------+ + + + + | 06/26/ | Office | Cardiology | Dora De La Torre | | | 2019 | Visit | | [address] | | | | | | [address] | | | | | | [place] [address] | | | | | | [phone] | | | | | | | | +--------+ + + + + documented as of this encounter Visit Diagnoses Not on filedocumented in this encounter"
--- OUTSIDE RECORDS SUMMARY | ~2020-05-03 | XMS | Encounter Summary ---
Demographics + + + | Address | [address] | | | [place] [address] | + + + | Home Phone [...] [place] | | | | | [address] | | + + + + + Care Team Providers + +------+ + | Care String Winding Machine Operator Name | Role | Phone [...] | Frandy Simons DO | [address] | | | | | of skin | [address] | [place], | | | | | sensation | [address] | [place] | | | | | Arthrodesis | [place], [place] | [address] | | | | | status Left | [address] | Phone: | | | | | leg | Phone: | [phone] | | | | | weakness | [phone] | Fax: | | | | | Procedures | Fax: | [phone] | | | | | MRI Lumbar | [phone] | | | | | | Spine [...] [address] | [address] [place], [place] | | | | | [place], [place] | [id number] | | | | | [address] | | | | | | [phone] | | | +--------+ + + + [...] scheduled samson for her MRI here at [facility] on 08/19. SHAYNE ARAGON eleFrandy [...] [address] | | | | | | [place] [address] | | | | | | [phone] | | | | | | | | +--------+ + + + + | 06/26/ | Office | Cardiology | Dora De La Torre | | | 2020 | Visit | | [address] | | | | | | [address] | | | | | | [place] [address] | | | | | | [phone] | | | | | | | [...] the round structure with high T1 and N1ygugfa in the right L3 vertebral | | [...] + | MISCELLANEOUS LAB | | | [phone] | + +---------+ + + | MISCELANIOUS LAB | | | [phone] | + +---------+ + + documented in [...]
--- OUTSIDE RECORDS SUMMARY | ~2020-05-03 | XMS | Encounter Summary ---
Demographics + + + | Address | [address] | | | [place] [address] | + + + | Home Phone [...] [place] | | | | | [address] | | + + + + + Care Team Providers + +------+ + | Care Block Cleaner Name | Role | Phone | + +------+ + | Natalee Andersen NP | PCP | | + +------+ + Encounter Details +--------+ + + + + | Date | Type | Department | Care Team | Description | +--------+ + + + + | 09/27/ | Hospital | [facility] | Frandy Teresa, | Lumbar spondylosis; | | 2013 | Encounter | MED CTR XRAY [address] | DO [address] | S/P lumbar fusion | | | | [place] | [address] [place], [place] | | | | | [place] [address] | [address] | | | | | [phone] | | | +--------+ + + + [...] + + + +---------+ + + | Woolstock-3 Fatty | Take 1,000 mg by | [...] [place] | | | | | | [place] [address] | | | | | | [phone] | | | | | | | | +--------+ + + + + | 06/26/ | Office | Cardiology | Dora De La Torre | | | 2019 | Visit | | [address] | | | | | | [place] | | | | | | [place] [address] | | | | | | [phone] | | | | | | | [...] + | MISCELLANEOUS LAB | | | [phone] | + +---------+ + + | MISCELANIOUS LAB | | | [phone] | + +---------+ + + documented in this encounter Visit Diagnoses + + | Diagnosis | + + | Lumbar spondylosis Lumbosacral spondylosis without myelopathy | + + | S/P lumbar fusion Arthrodesis status | + + documented in this encounter"
--- OUTSIDE RECORDS SUMMARY | ~2020-05-03 | XMS | Encounter Summary ---
Demographics + + + | Address | [address] | | | [place] [address] | + + + | Home Phone [...] [place] | | | | | [address] | | + + + + + Care Team Providers + +------+ + | Care Copying Machine Mechanic Name | Role | Phone | [...] Closed | | Radiology | Diagnoses | [place], | | | | | | Thoracic or | Natalee L, | | | | | | lumbosacral | [address] | | | | | | neuritis or | [address] | | | | | | | [address] | | | | | | radiculitis, | [place], | | | | | | unspecified | [place] [address] | | | | | | | Phone: | | | | | | Degeneration | [phone] | | | | | | of lumbar | Fax: | | | | | | or | [phone] | | | | | | lumbosacral [...] + + | 03/11/ | Hospital | [facility] | Natalee Andersen | Thoracic or | | 2013 | Encounter | MED CTR MRI [address] | L, [address] | lumbosacral neuritis | | | | [place], | [address] | or radiculitis, | | | | [place] [address] | [place] [address] | unspecified; | | | | [phone] | [phone] | Degeneration of | | | | [...] + + + +---------+ + + | Bannister-3 Fatty | Take 1,000 mg by | [...] encounter Miscellaneous Notes Miscellaneous - ONBASE SCAN [facility] - 03/20/2014 12:00 AM PDT documented in [...] C[place]U | | | | | | [place] [address] | | | | | | [phone] | | | | | | | | +--------+ + + + + | 06/26/ | Office | Cardiology | Dora De La Torre | | | 2019 | Visit | | [address] | | | | | | [address] | | | | | | [place] [address] | | | | | | [phone] | | | | | | | [...] + | MISCELLANEOUS LAB | | | [phone] | + +---------+ + + | MISCELANIOUS LAB | | | [phone] | + +---------+ + + documented in this encounter Visit Diagnoses + + | Diagnosis | + + | Thoracic or lumbosacral neuritis or radiculitis, unspecified | + + | Degeneration of lumbar or lumbosacral intervertebral disc | + + documented in this encounter"
--- OUTSIDE RECORDS SUMMARY | ~2020-05-03 | XMS | Encounter Summary ---
Demographics + + + | Address | [address] | | | [place] [address] | + + + | Home Phone [...] [place], [place] | | | | | [address] | | + + + + + Care Team Providers + +------+ + | Care Careers Counsellor Name | Role | Phone | + +------+ + PCP | Unavailable | + +------+ + Encounter Details +--------+ + + + + | Date | Type | Department | Care Team | Description | +--------+ + + + + | 12/27/ | Hospital | [facility] | | | | 1995 | Encounter | MED CTR LABORATORY | | | | | | [address] | | | | | | [place] | | | | | | [address] | | | | | | [phone] | | | +--------+ + + + [...] | | | | | [place] [address] | | | | | | [phone] | | | | | | | | +--------+ + + + + | 06/26/ | Office | Cardiology | Dora De La Torre | | | 2020 | Visit | | [address] | | | | | | [address] | | | | | | [place] [address] | | | | | | [phone] | | | | | | | | +--------+ + + + + documented as of this encounter Visit Diagnoses Not on filedocumented in this encounter"
--- OUTSIDE RECORDS SUMMARY | ~2020-05-03 | XMS | Encounter Summary ---
Demographics + + + | Address | [address] | | | [place] [address] | + + + | Home Phone [...] [place] | | | | | [address] | | + + + + + Care Team Providers + +------+ + | Care Arts [employer] Humanities Council Director Name | Role | Phone | [...] | | | | | mellitus, | [address] | [place] | | | | | controlled | Phone: | [address] | | | | | (HCC) | [phone] | Phone: | | | | | History of | Fax: | [phone] | | | | | gastric | [phone] | Fax: | | | | | restrictive | | [phone] | | | | | surgery | [...] | Required | | hypertension | [address] | | | | | Lumbar | [address]VE [place] | [address] | | | | | radiculopath | [place], [place] | AVE | | | | | y Type 2 | [address] | [place] | | | | | diabetes | Phone: | [address] | | | | | mellitus, | [phone] | Phone: | | | | | controlled | Fax: | [phone] | | | | | (HCC) | [phone] | Fax: | | | | | Obesity, | | [phone] | | | | | Class III, [...] | | [facility] & Katharine BUCIO in [place]. 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 Ask [facility] if they think it might be helpful [...] Cont your meds as prescribed. F/U with [facility] as scheduled Neuropathy Continue gabapentin. May consider increase if pain is not controlled. May benefit from switching from Paxil to one of the SNRIs or TCAs for analgesic effects, ho manju, she is doing so well on her current regimen it may not be worth making any changes an d find alternate ways to deal with the pain. Would be worth discussing with [facility] Psych Back Pain Will refer to water therapy (aqua fitness) at [facility] as request ed. [...] Colonoscopy procedures 4. Schizoaffective disorder, bipolar type ([facility]) 5. Neuropathy Vitamin B-12 6. BACK PAIN, LUMBAR, WITH RADICULOPATHY Ambulatory referral to Physical Therapy 7. ROGERS on CPAP 8. Stroke ([facility]) 9. Environmental and seasonal allergies fluticasone (FLONASE) 50 mcg/nasal spray 10. Gastroesophageal reflux disease without esophagitis dexlansoprazole (DEXILANT) 60 mg D R capsule 11. History of gastric restrictive surgery Vitamin D, 25-Hydroxy Nutrition Services - External - AMB Referral 12. Obesity, Class III, BMI 40-49.9 (morbid obesity) ([facility]) Ambulatory referral to Physical Therapy Nutrition Services - External - AMB Referral 13. Type 2 diabetes mellitus, controlled ([facility]) Ambulatory referral to Physical Therapy Nutrition [...] Cont your meds as prescribed. [facility] Neuropathy Continue gabapentin. May [...] the pain. Would be worth discussing with [facility] professional. Back Pain Will refer to water therapy (aqua fitness) at [facility] as request ed. Cont home exercise, [...] plan. The above note was dictated using [employer] voice recognition software. It may have not been proofread in entirety. Minor errors in grammar may occur. CHIEF COMPLAINT Chief Complaint Patient presents with [facility] Presents to establish care. Former patient of [facility]e [facility] in [place]. Other Possible stroke January 2015. Is now [...] auditory, at 36. 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 She is now very well controlled on Saphris, Depakote, and Paxi l. She is followed by [facility] in [place]. She has DM2 that is well controlled [...] Laterality: N/A; Surgeon: Frandy castellanos DO; [facility] SOCIAL HISTORY History Social [...] mg by mouth Daily. Cholecalciferol (VITAMIN D-3) 73352 units CAPS Oral Take 50,000 Units by [...] Oral Take 10 mg by mouth nightly. [place]-3 Fatty Acids [...] [address] | | | | | | [place] [address] | | | | | | [phone] | | | | | | | | +--------+ + + + + | 06/26/ | Office | Cardiology | Dora De La Torre | | | 2019 | Visit | | [address] | | | | | | [address] | | | | | | [place] [address] | | | | | | [phone] | | | | | | | [...] | | | | | | controlled ([facility]) | | | | | | Obesity, Class III, | | | | | | BMI 40-49.9 (morbid | | | | | | obesity) ([facility]) | | + + +--------+ + [...] | | | | obesity) ([facility]) | | + + +--------+ + [...] | | | FILTRATION | mL/min/1.73m2 | [facility] | | | [place] | RATE,ESTIMATED | | MEDICAL | | | | mL/min/1.34a4Ophb than | | CENTER - | | [...] + + | [address] | [address] | [place] | [phone] | | [facility] | | [address] | | | - LABORATORY | | [...]
--- OUTSIDE RECORDS SUMMARY | ~2020-05-03 | XMS | Encounter Summary ---
Demographics + + + | Address | [address] | | | [place] [address] | + + + | Home Phone [...] [place] | | | | | [address] | | + + + + + Care Team Providers + +------+ + | Care Pack Puller Name | Role | Phone | [...] | Transcriptions | + + | Interface, Record Press Operator In - 11/04/2006 3:03 AM PST | | [address] | | [place], [place] [address] [facility] | | ClinicsOPERATION RECORDMed [...] skin retractor was put in place. The Landers elevators wereused to separate the | | [...]
--- OUTSIDE RECORDS SUMMARY | ~2020-05-03 | XMS | Encounter Summary ---
Demographics + + + | Address | [address] | | | [place] [address] | + + + | Home Phone [...] [place] | | | | | [address] | | + + + + + Care Team Providers + +------+ + | Care Operating Table Assembler Name | Role | Phone | [...] | 09/26/ | Refill | [facility] | Frandy Teresa, | Medication Refill | | 2013 | | [address] | DO [address] | | | | | [facility] | [address] [place], [place] | | | | | [place], [place] | [id number] | | | | | [address] | | | | | | [phone] | | | +--------+--------+ + + + [...] will come today. [facility] at [...] [place] | | | | | | [place] [address] | | | | | | [phone] | | | | | | | | +--------+ + + + + | 06/26/ | Office | Cardiology | Droa De La Torre | | | 2019 | Visit | | [address] | | | | | | [place] | | | | | | [facility] [address] | | | | | | [phone] | | | | | | | | +--------+ + + + + documented as of this encounter Visit Diagnoses Not on filedocumented in this encounter"
--- OUTSIDE RECORDS SUMMARY | ~2020-05-03 | XMS | Encounter Summary ---
Demographics + + + | Address | [address] | | | [place] [address] | + + + | Home Phone [...] [place], [place] | | | | | [address] | | + + + + + Care Team Providers + +------+ + | Care Pipe Stem Aligner Name | Role | Phone | + +------+ + PCP | Unavailable | + +------+ + Encounter Details +--------+ + + + + | Date | Type | Department | Care Team | Description | +--------+ + + + + | 06/17/ | Hospital | [facility] | | | | 1991 - | Encounter | MED CTR GENERIC PSY | | | | | | CONV DEPT [address] | | | | 06/18/ | | [address] [place], | | | | 1991 | | [place] [address] | | | | | | [phone] | | | +--------+ + + + [...] [place] | | | | | | [place] [address] | | | | | | [phone] | | | | | | | | +--------+ + + + + | 06/26/ | Office | Cardiology | Dora De La Torre | | | 2019 | Visit | | [address] | | | | | | [address] | | | | | | [place] [address] | | | | | | [phone] | | | | | | | | +--------+ + + + + documented as of this encounter Visit Diagnoses Not on filedocumented in this encounter"
--- OUTSIDE RECORDS SUMMARY | ~2020-05-03 | XMS | Encounter Summary ---
Demographics + + + | Address | [address] | | | [place] [address] | + + + | Home Phone [...] [place] | | | | | [address] | | + + + + + Care Team Providers + +------+ + | Care Funeral Home Manager Name | Role | Phone | [...] + | 07/19/ | Telephone | [facility] | Frandy Teresa, | Appointment | | 2013 | | [address]UR[address] | DO [address] | | | | | [address] | [address] [place], [place] | | | | | [place], [place] | [id number] | | | | | [address] | | | | | | [phone] | | | +--------+ + + + [...] Spivey - 07/22/2014 8:09 AM Nakia from [facility] called back this morning to isamar mcarthure that she spoke with the patient again regarding this appointment and the patient would be ok with rescheduling to a time the following week. She just didn't want to make the trip down here right after she got back home to [place]. Janes can be reached at [phone] ectronically signed by Tiffani Humphrey at 07/22/2014 8:11 AM PDTTelephone Encounter - Lashawn Metzger - 07/19/2014 12:56 PM PDTSuarlen from [facility] called to confirm Cindy' s appointment for [...] | | | | | [place] [address] | | | | | | [phone] | | | | | | | | +--------+ + + + + | 06/26/ | Office | Cardiology | Dora De La Torre | | | 2019 | Visit | | [address] | | | | | | [address] | | | | | | [place] [address] | | | | | | [phone] | | | | | | | | +--------+ + + + + documented as of this encounter Visit Diagnoses Not on filedocumented in this encounter"
--- OUTSIDE RECORDS SUMMARY | ~2020-05-03 | XMS | Encounter Summary ---
Demographics + + + | Address | [address] | | | [place] [address] | + + + | Home Phone [...] [place] | | | | | [address] | | + + + + + Care Team Providers + +------+ + | Care Business Mail Entry Clerk Name | Role | Phone | + +------+ + | Natalee Andersen NP | PCP | | + +------+ + Reason for Visit + +--------+ + | Reason | Onset | Comments | | | Date | | + +--------+ + | Medication Refill | 11/25/ | | | Assistance | 2014 | | + +--------+ + Encounter Details +--------+ + + + + | Date | Type | Department | Care Team | Description | +--------+ + + + + | 11/25/ | Telephone | [facility] | Frandy Teresa, | Medication Refill | | 2014 | | NEUR[address]UR[address]ERY [address] | DO [address] | Assistance | | | | [facility] | [address] [place], [place] | | | | | [place], [place] | [id number] | | | | | [address] | | | | | | [phone] | | | +--------+ + + + [...] Telephone Encounter - Keily Samuel RN - 11/26/2014 4:39 PM PSTLast chart note ro uted to PCP with instructions to follow up with office for future pain management.Electronic ally signed by Keily Samuel RN at 11/26/2014 4:40 PM PSTTelephone Encounter - Keily Quiles RN - 11/25/2014 3:27 PM PSTDate: 07/02/14 Surgery: MIS L5-S1 TRANSFORAMINAL LUMBAR INTERBODY FUSION Patient called today she wanted to get a refill of her pain medication [place] 10-325 mg. I l et her know we are beyond the 90 days after her surgery and refills need to come from her [facility] provider. She requests us to update her PCP. documented in t his encounter Plan of [...] [address] | | | | | | [place] [address] | | | | | | [phone] | | | | | | | | +--------+ + + + + | 06/26/ | Office | Cardiology | Dora De La Torre | | | 2019 | Visit | | [address] | | | | | | [address] | | | | | | [place] [address] | | | | | | [phone] | | | | | | | | +--------+ + + + + documented as of this encounter Visit Diagnoses Not on filedocumented in this encounter"
--- OUTSIDE RECORDS SUMMARY | ~2020-05-03 | XMS | Clinical Summary ---
Demographics + + + | Address | [address] [facility] [address] | | | [place] [address] | + + + | Home Phone [...] [place] | | | | | [address] | | + + + + + Care Team Providers + +------+ + | Care Tennis Centre Manager Name | Role | Phone | + +------+ + PCP | Unavailable | + +------+ + Source Comments EDWARD is fully live on both [facility] Ambulatory and [facility] InPatient.[facility] [...] | MEDICA | xxxxxxxxxx | 02/22/20 | [phone] | [address] | Medica | | | RE A & | | 15-Pre | 1 | [address] | re | | | B | | sent | | [place] | | | | | | | | [address] | | + +--------+ +--------+ + +--------+ + +--------+ +--------+ + + | Guarantor Name | Accoun | Relation to | Date | Phone | Billing Address | | | t Type | Patient | of | | | | | | | | | | + +--------+ +--------+ + + | CINDY ARNDT | Person | Self | [birth year] | [address] | | al/Fam | | 1955 | [phone] | [address] [place] | | | [place] | | | 5 (Home) | [address] | + +--------+ +--------+ + +"
--- OUTSIDE RECORDS SUMMARY | ~2020-05-03 | XMS | Encounter Summary ---
Demographics + + + | Address | [address] | | | [place] [address] | + + + | Home Phone [...] [place], [place] | | | | | [address] | | + + + + + Care Team Providers + +------+ + | Care Centrifuge Separator Operator Name | Role | Phone | + +------+ + PCP | Unavailable | + +------+ + Encounter Details +--------+ + + + + | Date | Type | Department | Care Team | Description | +--------+ + + + + | 02/22/ | Hospital | [facility] | | | | 1996 | Encounter | MED CTR EMERGENCY | | | | | | [address] | | | | | | [place] | | | | | | [address] | | | | | | [phone] | | | +--------+ + + + [...] | | | | | [place] [address] | | | | | | [phone] | | | | | | | | +--------+ + + + + | 06/26/ | Office | Cardiology | Dora De La Torre | | | 2020 | Visit | | [address] | | | | | | [address] | | | | | | [place] [address] | | | | | | [phone] | | | | | | | | +--------+ + + + + documented as of this encounter Visit Diagnoses Not on filedocumented in this encounter"
--- OUTSIDE RECORDS SUMMARY | ~2020-05-03 | XMS | Encounter Summary ---
Demographics + + + | Address | [address] | | | [place] [address] | + + + | Home Phone [...] [place] | | | | | [address] | | + + + + + Care Team Providers + +------+ + | Care Fixture Maker Name | Role | Phone | [...] | | | | | | | [address] | | | | | | | Phone: | | | | | | | [phone] | | | | | | | Fax: | | | | | | | [phone] | | +--------+--------+ + + + + Encounter Details +--------+---------+ + + + | Date | Type | Department | Care Team | Description | +--------+---------+ + + + | 02/27/ | Office | [facility] | Baudilio Newman | Neuropathy (Primary | | 2015 | Visit | NEUROLOGY LAURIE | MD Pollo Need updated | Dx); Sleep apnea; | | | | [address], | address | Stroke (HCC); | | | | [address] [place] | | Thyroid disease | | | | [place] [address] | | | | | | [phone] | | | +--------+---------+ + + + [...] supply of blood, brain tissue quickly dies. [id number] [employer]. [address] [place] [address]. All righ ts reserved. This information is not intended as a substitute for professional medical care. Always follow your healthcare professional's instructions. documented in this encounter Progress Notes Baudilio Newman MD - 02/27/2015 10:31 AM PDTFormatting of this note might be differen t from the original. Baudilio Newman MD [address] [place] [address], [address] [place] [address] Neurology Outpatient New Patient Note Referring Provider: [...] history. Notes from her recent hospitalization at [facility] were reviewed in detail. Ms. Arndt started feeling off in the evening of 02/01. She felt dizzy and laid down to slee p. Upon waking, she felt her right side was numb. She tried to get up to go to the bathroom and realized she was weak as well on the right. She was taken to [facility] where she was diagnosed with a [...] systol ically. She was reevaluated in the [facility] ED for one such event and [...] hospitalization . This specimen was characterized at [facility], but the report is not currently available for [facility]. Unfortunately, Ms. Arndt notes that her right [...] Laterality: N/A; Surgeon: Frandy castellanos DO; Location: [facility] MAIN OR Current Medications: Outpatient Medications [...] tablet Take 15 mg by mouth nightly. [place]-3 Fatty Acids (FISH OIL CONCENTRATE) 1000 MG [...] BMI 46.04 kg /m2 Neck Circumference: 14" Alfred Sleepiness Scale: 2 General: well developed and [...] Romberg test negative Radiographic Review: CTA from [facility] reviewed on iSITE. No significant stenoses seen [...] No results found for this basename: hba1c, ayh6dnv, ldl, ldldirect, ldlext, dldlex Lab Results Component [...] C[address]U | | | | | | [place] [address] | | | | | | [phone] | | | | | | | | +--------+ + + + + | 06/26/ | Office | Cardiology | Dora De La Torre | | | 2020 | Visit | | [address] | | | | | | [address] | | | | | | [place] [address] | | | | | | [phone] | | | | | | | [...]
--- OUTSIDE RECORDS SUMMARY | ~2020-05-03 | XMS | Encounter Summary ---
Demographics + + + | Address | [address] | | | [place] [address] | + + + | Home Phone [...] [place], [place] | | | | | [address] | | + + + + + Care Team Providers + +------+ + | Care Railroad Brake Operator Name | Role | Phone | + +------+ + PCP | Unavailable | + +------+ + Encounter Details +--------+ + + + + | Date | Type | Department | Care Team | Description | +--------+ + + + + | 05/23/ | Hospital | [facility] | | | | 1991 | Encounter | MED CTR XRAY [address] | | | | | | [address] | | | | | | [place] [address] | | | | | | [phone] | | | +--------+ + + + [...] | | | | | [place] [address] | | | | | | [phone] | | | | | | | | +--------+ + + + + | 06/26/ | Office | Cardiology | Dora De La Torre | | | 2019 | Visit | | [address] | | | | | | [address] | | | | | | [place] [address] | | | | | | [phone] | | | | | | | | +--------+ + + + + documented as of this encounter Visit Diagnoses Not on filedocumented in this encounter"
--- OUTSIDE RECORDS SUMMARY | ~2020-05-03 | XMS | Encounter Summary ---
Demographics + + + | Address | [address] | | | [place] [address] | + + + | Home Phone [...] [place] | | | | | [address] | | + + + + + Care Team Providers + +------+ + | Care Drag Car Racer Name | Role | Phone | + +------+ + | Adriano Patrick MD | PCP | | + +------+ + Encounter Details +--------+ + + + + | Date | Type | Department | Care Team | Description | +--------+ + + + + | 05/16/ | Orders Only | [facility] | Provider, | | | 2018 | | SYSTEM GENERIC OP | MD [address] | | | | | CONVERSION [address] | [address] | | | | | [address] [place], [place] | [place] [address] | | | | | [address] | | | | | | [phone] | | | +--------+ + + + [...] | | | | | [place] [address] | | | | | | [phone] | | | | | | | | +--------+ + + + + | 06/26/ | Office | Cardiology | Dora De La Torre | | | 2020 | Visit | | [address] | | | | | | [address] | | | | | | [place] [address] | | | | | | [phone] | | | | | | | | +--------+ + + + + documented as of this encounter Visit Diagnoses Not on filedocumented in this encounter"
--- OUTSIDE RECORDS SUMMARY | ~2020-05-03 | XMS | Encounter Summary ---
Demographics + + + | Address | [address] | | | [place] [address] | + + + | Home Phone [...] [place] | | | | | [address] | | + + + + + Care Team Providers + +------+ + | Care Cart Driver Name | Role | Phone | [...] [place] | | | | | | [address] | | | | | | [phone] | | | +--------+ + + + [...] | | | | | [place] [address] | | | | | | [phone] | | | | | | | | +--------+ + + + + | 06/26/ | Office | Cardiology | Dora De La Torre | | | 2020 | Visit | | [address] | | | | | | [address] | | | | | | [place] [address] | | | | | | [phone] | | | | | | | | +--------+ + + + + documented as of this encounter Visit Diagnoses Not on filedocumented in this encounter"
--- OUTSIDE RECORDS SUMMARY | ~2020-05-03 | XMS | Encounter Summary ---
Demographics + + + | Address | [address] | | | [place] [address] | + + + | Home Phone [...] [place] | | | | | [address] | | + + + + + Care Team Providers + +------+ + | Care Petroleum Refinery Worker Name | Role | Phone | [...] + + | 09/10/ | Documentati | [facility] | Katharine Moncada, | Other (urgent | | 2019 | on | CARDIOLOGY [place] | Technologist | report) | | | | [address] | | | | | | [place] | | | | | | [address] | | | | | | [phone] | | | +--------+ + + + [...] | | | | | [place] [address] | | | | | | [phone] | | | | | | | | +--------+ + + + + | 06/26/ | Office | Cardiology | Dora De La Torre | | | 2020 | Visit | | [address] | | | | | | [place] [address] | | | | | | [place] [address] | | | | | | [phone] | | | | | | | | +--------+ + + + + documented as of this encounter Visit Diagnoses Not on filedocumented in this encounter"
--- OUTSIDE RECORDS SUMMARY | ~2020-05-03 | XMS | Encounter Summary ---
Demographics + + + | Address | [address] | | | [place] [address] | + + + | Home Phone [...] [place], [place] | | | | | [address] | | + + + + + Care Team Providers + +------+ + | Care Inside Phone Sales Name | Role | Phone | + +------+ + PCP | Unavailable | + +------+ + Encounter Details +--------+ + + + + | Date | Type | Department | Care Team | Description | +--------+ + + + + | 01/16/ | Hospital | [facility] | | | | 2002 | Encounter | MED CTR XRAY [address] | | | | | | [address] | | | | | | [place] [address] | | | | | | [phone] | | | +--------+ + + + [...] | | | | | [place] [address] | | | | | | [phone] | | | | | | | | +--------+ + + + + | 06/26/ | Office | Cardiology | Dora De La Torre | | | 2019 | Visit | | [address] | | | | | | [address] | | | | | | [place] [address] | | | | | | [phone] | | | | | | | | +--------+ + + + + documented as of this encounter Visit Diagnoses Not on filedocumented in this encounter"
--- OUTSIDE RECORDS SUMMARY | ~2020-05-03 | XMS | Encounter Summary ---
Demographics + + + | Address | [address] | | | [place] [address] | + + + | Home Phone [...] [place], [place] | | | | | [address] | | + + + + + Care Team Providers + +------+ + | Care Forming Machine Upkeep Mechanic Helper Name | Role | Phone | + +------+ + PCP | Unavailable | + +------+ + Encounter Details +--------+ + + + + | Date | Type | Department | Care Team | Description | +--------+ + + + + | 03/11/ | [facility] | [facility] | Deon Gonzales | | | 2004 | Encounter | MED CTR SLEEP | MD Laureano [address] | | | | | [place] [address] | [address] [facility] | | | | | [place], [place] | [place] [address] | | | | | [address] | [phone] | | | | | [phone] | | | +--------+ + + + [...] | | | | | [place] [address] | | | | | | [phone] | | | | | | | | +--------+ + + + + | 06/26/ | Office | Cardiology | Dora De La Torre | | | 2019 | Visit | | [address] | | | | | | [address] | | | | | | [place] [address] | | | | | | [phone] | | | | | | | | +--------+ + + + + documented as of this encounter Visit Diagnoses Not on filedocumented in this encounter"
--- OUTSIDE RECORDS SUMMARY | ~2020-05-03 | XMS | Encounter Summary ---
Demographics + + + | Address | [address] | | | [place] [address] | + + + | Home Phone [...] [place] | | | | | [address] | | + + + + + Care Team Providers + +------+ + | Care Alpine Patroller Name | Role | Phone | + [...] + + | 07/10/ | Telephone | [facility] | Frandy Teresa, | Imaging Only (1 year | | 2014 | | NEUROSURGERY [address] | DO [address] | x-ray ) | | | | [address] | [address] [place], [place] | | | | | [place], [place] | [address] | | | | | [address] | | | | | | [phone] | | | +--------+ + + + [...] | Procedure | Cardiology | Dora De LaT orre | | | 2019 | visit | | [address] | | | | | | [address] [address] | | | | | | [place] [address] | | | | | | [phone] | | | | | | | | +--------+ + + + + | 06/26/ | Office | Cardiology | Dora De La Torre | | | 2019 | Visit | | [address] | | | | | | [address] | | | | | | [place] [address] | | | | | | [phone] | | | | | | | | +--------+ + + + + documented as of this encounter Visit Diagnoses Not on filedocumented in this encounter"
--- OUTSIDE RECORDS SUMMARY | ~2020-05-03 | XMS | Encounter Summary ---
Demographics + + + | Address | [address] | | | [place] [address] | + + + | Home Phone [...] [place] | | | | | [address] | | + + + + + Care Team Providers + +------+ + | Care Pulp Drier Firer Name | Role | Phone | + [...] + | 02/21/ | Refill | [facility] | Deon Gonzales | Medication Refill | | 2012 | | SLEEP DISORDER [address] | MD Laureano [address] | | | | | [address] | [address] | | | | | [place] [address] | [place] [address] | | | | | [phone] | [phone] | | | | | | | [...] - 02/22/2013 9:32 AM [facility] documented in this encount er Plan [...] [address] | | | | | | [place] [address] | | | | | | [phone] | | | | | | | | +--------+ + + + + | 06/26/ | Office | Cardiology | Dora De La Torre | | | 2020 | Visit | | [address] | | | | | | [address] | | | | | | [place] [address] | | | | | | [phone] | | | | | | | | +--------+ + + + + documented as of this encounter Visit Diagnoses + + | Diagnosis | + + | Obstructive sleep apnea (adult) (pediatric) - Primary | + + documented in this encounter"
--- OUTSIDE RECORDS SUMMARY | ~2020-05-03 | XMS | Encounter Summary ---
Demographics + + + | Address | [address] | | | [place] [address] | + + + | Home Phone [...] [place] | | | | | [address] | | + + + + + Care Team Providers + +------+ + | Care Mainspring Strip Inspector Name | Role | Phone | [...] + + | 09/10/ | Documentati | [facility] | Katharine Moncada, | Other (urgent | | 2019 | on | CARDIOLOGY [place] | Technologist | report) | | | | [address] | | | | | | [place] | | | | | | [address] | | | | | | [phone] | | | +--------+ + + + [...] | | | | | [place] [address] | | | | | | [phone] | | | | | | | | +--------+ + + + + | 06/26/ | Office | Cardiology | Dora De La Torre | | | 2020 | Visit | | [address] | | | | | | [place] | | | | | | [place] [address] | | | | | | [phone] | | | | | | | | +--------+ + + + + documented as of this encounter Visit Diagnoses Not on filedocumented in this encounter"
--- OUTSIDE RECORDS SUMMARY | ~2020-05-03 | XMS | Encounter Summary ---
Demographics + + + | Address | [address] | | | [place] [address] | + + + | Home Phone [...] [place], [place] | | | | | [address] | | + + + + + Care Team Providers + +------+ + | Care Service Loss Control Consultant Name | Role | Phone | + +------+ + PCP | Unavailable | + +------+ + Encounter Details +--------+ + + + + | Date | Type | Department | Care Team | Description | +--------+ + + + + | 07/17/ | Hospital | [facility] | | | | 1997 - | Encounter | MED CTR GENERIC PSY | | | | | | CONV DEPT [address] | | | | 07/25/ | | [address], | | | | 1997 | | [place] [address] | | | | | | [phone] | | | +--------+ + + + [...] [place] | | | | | | [place] [address] | | | | | | [phone] | | | | | | | | +--------+ + + + + | 06/26/ | Office | Cardiology | Dora De La Torre | | | 2019 | Visit | | [address] | | | | | | [address] | | | | | | [place] [address] | | | | | | [phone] | | | | | | | | +--------+ + + + + documented as of this encounter Visit Diagnoses Not on filedocumented in this encounter"
--- OUTSIDE RECORDS SUMMARY | ~2020-05-03 | XMS | Encounter Summary ---
Demographics + + + | Address | [address] | | | [place] [address] | + + + | Home Phone [...] [place] | | | | | [address] | | + + + + + Care Team Providers + +------+ + | Care Jukebox Route Driver Name | Role | Phone [...] + + | 08/09/ | Clinical | [facility] | Desiree Peterson DO | Syncope, unspecified | | 2019 | Support | CARDIOLOGY [place] | [address] | syncope type | | | | [address] | [address] [place], [place] | | | | | [place] [address] | [address] | | | | | [place] | | | | | | [address] | Dora De La Torre | | | | | [phone] | [address] | | | | | | [address] | | | | | | [place] [address] | | | | | | [phone] | | | | | | | [...] | | | | | [place] [address] | | | | | | [phone] | | | | | | | | +--------+ + + + + | 06/26/ | Office | Cardiology | Dora De La Torre | | | 2019 | Visit | | [address] | | | | | | [address] | | | | | | [place] [address] | | | | | | [phone] | | | | | | | | +--------+ + + + + documented as of this encounter Visit Diagnoses + + | Diagnosis | + + | Syncope, unspecified syncope type | + + documented in this encounter"
--- OUTSIDE RECORDS SUMMARY | ~2020-05-03 | XMS | Encounter Summary ---
Demographics + + + | Address | [address] | | | [place] [address] | + + + | Home Phone [...] [place] | | | | | [address] | | + + + + + Care Team Providers + +------+ + | Care Fence Laborer Name | Role | Phone | [...] | | | | | [address] | [place], [place] | | | | | [place], [place] | [address] | | | | | [address] | | | | | | [phone] | | | +--------+ + + + [...] EVALUATION Cindy Arndt 58 y.o. female 1955 [id number] Scheduled procedure LAMINECTOMY PLIF/TLIF INSTRUMENTATION [1842] - L5-S1 TLIF Medical history, anesthesia, medications, allergy histories reviewed. ECG reviewed. Labs reviewed. ROS / Med History Ane (+) PONV. (-) difficult intubation, malignant hyperthermia . NPO status verified. CV (+) hypertension.(-) past VA. (+) Dysrhythmias (h/o PVCs) Exercise tolerance >4 [...] | | | | | [place] [address] | | | | | | [phone] | | | | | | | | +--------+ + + + + | 06/26/ | Office | Cardiology | Dora De La Torre | | | 2020 | Visit | | [address] | | | | | | [address] [address] | | | | | | [place] [address] | | | | | | [phone] | | | | | | | | +--------+ + + + + documented as of this encounter Visit Diagnoses Not on filedocumented in this encounter"
--- OUTSIDE RECORDS SUMMARY | ~2020-05-03 | XMS | Encounter Summary ---
Demographics + + + | Address | [address] | | | [place] [address] | + + + | Home Phone [...] [place] | | | | | [address] | | + + + + + Care Team Providers + +------+ + | Care Director Strategy Name | Role | Phone | + [...] [address] | [address] [place], [place] | Anxiety; Anemia; | | | | [place] | [address] | Irregular heartbeat; | | | | [address] | | Depression; | | | | [phone] | | Migraine; | | | | [...] [address] | | | | | | [place] [address] | | | | | | [phone] | | | | | | | | +--------+ + + + + | 06/26/ | Office | Cardiology | Dora De La Torre | | | 2019 | Visit | | [address] | | | | | | [address] | | | | | | [place] [address] | | | | | | [phone] | | | | | | | [...]
--- OUTSIDE RECORDS SUMMARY | ~2020-05-03 | XMS | Encounter Summary ---
Demographics + + + | Address | [address] | | | [place] [address] | + + + | Home Phone [...] [place], [place] | | | | | [address] | | + + + + + Care Team Providers + +------+ + | Care Senior Administrative Assistant Name | Role | Phone | + +------+ + PCP | Unavailable | + +------+ + Encounter Details +--------+ + + + + | Date | Type | Department | Care Team | Description | +--------+ + + + + | 09/24/ | Hospital | [facility] | | | | 1993 | Encounter | MED CTR LABORATORY | | | | | | [address] | | | | | | [place] | | | | | | [address] | | | | | | [phone] | | | +--------+ + + + [...] | | | | | [place] [address] | | | | | | [phone] | | | | | | | | +--------+ + + + + | 06/26/ | Office | Cardiology | Dora De La Torre | | | 2020 | Visit | | [address] | | | | | | [address] | | | | | | [place] [address] | | | | | | [phone] | | | | | | | | +--------+ + + + + documented as of this encounter Visit Diagnoses Not on filedocumented in this encounter"
--- OUTSIDE RECORDS SUMMARY | ~2020-05-03 | XMS | Encounter Summary ---
Demographics + + + | Address | [address] | | | [place] [address] | + + + | Home Phone [...] [place], [place] | | | | | [address] | | + + + + + Care Team Providers + +------+ + | Care Mechanical Facilities Technician Name | Role | Phone | + +------+ + PCP | Unavailable | + +------+ + Encounter Details +--------+ + + + + | Date | Type | Department | Care Team | Description | +--------+ + + + + | 04/16/ | Hospital | [facility] | | | | 1997 | Encounter | MED CTR XRAY [address] | | | | | | [address] | | | | | | [place] [address] | | | | | | [phone] | | | +--------+ + + + [...] | | | | | [place] [address] | | | | | | [phone] | | | | | | | | +--------+ + + + + | 06/26/ | Office | Cardiology | Dora De La Torre | | | 2019 | Visit | | [address] | | | | | | [address] | | | | | | [place] [address] | | | | | | [phone] | | | | | | | | +--------+ + + + + documented as of this encounter Visit Diagnoses Not on filedocumented in this encounter"
--- OUTSIDE RECORDS SUMMARY | ~2020-05-03 | XMS | Encounter Summary ---
Demographics + + + | Address | [address] | | | [place] [address] | + + + | Home Phone [...] [place] | | | | | [address] | | + + + + + Care Team Providers + +------+ + | Care Gis Engineer Name | Role | Phone | [...] | 08/05/ | Telephone | [facility] | Frandy Teresa, | Other | | 2013 | | NEUROSURGERY [address] | DO [address] | | | | | [address] | [address] [place], [place] | | | | | [place], [place] | [id number] | | | | | [address] | | | | | | [phone] | | | +--------+ + + + [...] [address] | | | | | | [place] [address] | | | | | | [phone] | | | | | | | | +--------+ + + + + | 06/26/ | Office | Cardiology | Dora De La Torre | | | 2019 | Visit | | [address] | | | | | | [address] | | | | | | [place] [address] | | | | | | [phone] | | | | | | | | +--------+ + + + + documented as of this encounter Visit Diagnoses Not on filedocumented in this encounter"
--- OUTSIDE RECORDS SUMMARY | ~2020-05-03 | XMS | Encounter Summary ---
Demographics + + + | Address | [address] | | | [place] [address] | + + + | Home Phone [...] [place] | | | | | [address] | | + + + + + Care Team Providers + +------+ + | Care Workers' Compensation Magistrate Name | Role | Phone | [...] + | 06/20/ | Telephone | [facility] | Frandy Teresa, | Other (surgery | | 2013 | | NEUROSUR[address]ERY [address] | DO [address] | reminder ) | | | | [address] | [address] [place], [place] | | | | | [place], [place] | [id number] | | | | | [address] | | | | | | [phone] | | | +--------+ + + + [...] | | | | | [place] [address] | | | | | | [phone] | | | | | | | | +--------+ + + + + | 06/26/ | Office | Cardiology | Dora De La Torre | | | 2019 | Visit | | [address] | | | | | | [address] | | | | | | [place] [address] | | | | | | [phone] | | | | | | | | +--------+ + + + + documented as of this encounter Visit Diagnoses Not on filedocumented in this encounter"
--- OUTSIDE RECORDS SUMMARY | ~2020-05-03 | XMS | Encounter Summary ---
Demographics + + + | Address | [address] | | | [place] [address] | + + + | Home Phone [...] [place] | | | | | [address] | | + + + + + Care Team Providers + +------+ + | Care Filling Station Laborer Name | Role | Phone | [...] | | [address] | [place], [place] | | | | | [place], [place] | [address] | | | | | [address] | | | | | | [phone] | | | +--------+ + + + [...] [address] | | | | | | [place] [address] | | | | | | [phone] | | | | | | | | +--------+ + + + + | 06/26/ | Office | Cardiology | Dora De La Torre | | | 2019 | Visit | | [address] | | | | | | [address] | | | | | | [place] [address] | | | | | | [phone] | | | | | | | [...] 0.83 m/s | | | MV Dec Davis: 2.85 m/s2 MV DecT: 282.89 ms MV E Teodoro: 0.80 | | | m/s MV E/A Ratio: 0.96 E/E' Sept: 12.59 E' Lat: 0.08 m/s | | | E' Sept: 0.06 m/s RAP: 10 mmHg RV S': 0.11 m/s RVSP: | | | 27.96 mmHg TR maxP.96 mmHg TR Vmax: 2.11 m/s | | | News Production Supervisor: Authenticated by: Desiree Peterson MD Report Date/Time: | | | -- [id number]:[id number] | | + + + + + [...] (A-L): 19.60 | | ml/m2LAAs A2C: 15.44 ib2XOIYV A-L A2C: 43.84 mlLAESV MOD A2C: 42.12 mlLALs A2C: | | 4.61 cmLAAs A4C: 14.18 cf3SEDAZ A-L A4C: 38.73 mlLAESV MOD A4C: 37.04 mlLALs A4C: | | 4.41 cmRAAs: 12.15 mr5HMVAB A-L: 28.54 mlRAESV MOD: 28.66 mlRALs: 4.39 | | cmTAPSE: 2.42 cmAV Env.Ti: 293.94 msAV maxP.18 mmHgAV meanP.09 mmHgAV | | Vmax: 1.88 m/Eddie Vmean: 1.25 m/Eddie VTI: 36.84 cmAVA Vmax: 2.06 cm2AVA (VTI): | | 2.24 ip5HPFC Vmax: 0.00 cm2/m2AVAI (VTI): 0.00 cm2/m2LVOT Env.Ti: 299.59 msLVOT | | maxP.52 mmHgLVOT meanP.65 mmHgLVSI Dopp: 38.55 ml/m2LVSV Dopp: 82.89 | | mlLVOT Vmax: 1.27 m/sLVOT Vmean: 0.91 m/sLVOT VTI: 27.27 cmMV A Teodoro: 0.83 m/sMV | | Dec Davis: 2.85 m/s2MV DecT: 282.89 msMV E Teodoro: 0.80 m/sMV E/A Ratio: 0.96E/E' | | Sept: 12.59E' Lat: 0.08 m/sE' Sept: 0.06 m/sRAP: 10 mmHgRV S': 0.11 m/sRVSP: | | 27.96 mmHgTR maxP.96 mmHgTR Vmax: 2.11 m/s News Production Supervisor:Authenticated by: | | Desiree Peterson MDReport Date/Time: -- [id number]:[id number] IMPRESSION: 1. Overall left | | ventricular [...] A Teodoro: 0.83 m/s | |MV Dec Davis: 2.85 m/s2 | |MV DecT: 282.89 ms | |MV E Teodoro: 0.80 m/s | |MV E/A Ratio: 0.96 | |E/E' Sept: 12.59 | |E' Lat: 0.08 m/s | |E' Sept: 0.06 m/s | |RAP: 10 mmHg | |RV S': 0.11 m/s | |RVSP: 27.96 mmHg | |TR maxP.96 mmHg | |TR Vmax: 2.11 m/s | | | |News Production Supervisor: | |Authenticated by: Desiree Peterson MD | |Report Date/Time: -- [id number]:[id number] | | | |IMPRESSION: | |1. Overall [...]
--- OUTSIDE RECORDS SUMMARY | ~2020-05-03 | XMS | Encounter Summary ---
Demographics + + + | Address | [address] | | | [place] [address] | + + + | Home Phone [...] [place] | | | | | [address] | | + + + + + Care Team Providers + +------+ + | Care Adjutant General Name | Role | Phone | [...] [place] | | | | | | [address] | | | | | | [phone] | | | +--------+ + + + [...] | | | | | [place] [address] | | | | | | [phone] | | | | | | | | +--------+ + + + + | 06/26/ | Office | Cardiology | Dora De La Torre | | | 2020 | Visit | | [address] | | | | | | [address] | | | | | | [place] [address] | | | | | | [phone] | | | | | | | | +--------+ + + + + documented as of this encounter Visit Diagnoses Not on filedocumented in this encounter"
--- OUTSIDE RECORDS SUMMARY | ~2020-05-03 | XMS | Encounter Summary ---
Demographics + + + | Address | [address] | | | [place] [address] | + + + | Home Phone [...] [place], [place] | | | | | [address] | | + + + + + Care Team Providers + +------+ + | Care Mixing Machine Tender Cork Rod Name | Role | Phone | + +------+ + PCP | Unavailable | + +------+ + Encounter Details +--------+ + + + + | Date | Type | Department | Care Team | Description | +--------+ + + + + | 02/24/ | Hospital | [facility] | | | | 1997 - | Encounter | MED CTR GENERIC PSY | | | | | | CONV DEPT [address] | | | | 02/26/ | | [place], | | | | 1997 | | [place] [address] | | | | | | [phone] | | | +--------+ + + + [...] [address] | | | | | | [place] [address] | | | | | | [phone] | | | | | | | | +--------+ + + + + | 06/26/ | Office | Cardiology | [facility] | | | 2019 | Visit | | [address] | | | | | | [address] | | | | | | [place] [address] | | | | | | [phone] | | | | | | | | +--------+ + + + + documented as of this encounter Visit Diagnoses Not on filedocumented in this encounter"
--- OUTSIDE RECORDS SUMMARY | ~2020-05-03 | XMS | Encounter Summary ---
Demographics + + + | Address | [address] | | | [place] [address] | + + + | Home Phone [...] [place], [place] | | | | | [address] | | + + + + + Care Team Providers + +------+ + | Care Mold Yard Crane Operator Name | Role | Phone | + +------+ + PCP | Unavailable | + +------+ + Encounter Details +--------+ + + + + | Date | Type | Department | Care Team | Description | +--------+ + + + + | 06/19/ | Hospital | [facility] | | | | 1991 - | Encounter | MED CTR GENERIC PSY | | | | | | CONV DEPT [address] | | | | 06/24/ | | [place], | | | | 1991 | | [place] [address] | | | | | | [phone] | | | +--------+ + + + [...] [address] | | | | | | [place] [address] | | | | | | [phone] | | | | | | | | +--------+ + + + + | 06/26/ | Office | Cardiology | [facility] | | | 2019 | Visit | | [address] | | | | | | [address] | | | | | | [place] [address] | | | | | | [phone] | | | | | | | | +--------+ + + + + documented as of this encounter Visit Diagnoses Not on filedocumented in this encounter"
--- OUTSIDE RECORDS SUMMARY | ~2020-05-03 | XMS | Encounter Summary ---
Demographics + + + | Address | [address] | | | [place] [address] | + + + | Home Phone [...] [place] | | | | | [address] | | + + + + + Care Team Providers + +------+ + | Care Child Psychiatrist Name | Role | Phone | + [...] + + | 07/06/ | Emergency | [facility] | Yunior Sherman, | Chest pain, | | 2014 | | MED CTR EMERGENCY | MD [address] | unspecified chest | | | | CENTER [address] | [place], [place] | pain type (Primary | | | | [place], [place] | [address] | Dx) | | | | [address] | | | | | | [phone] | | | +--------+ + + + [...] sent through Care Everywhere.CHEST PAIN, NON CARDIAC (ICELANDIC)documented in this encounter Medications at Time of [...] 0 | | | | (VITAMIN D-3) 925[address] | mouth Once a week. | | [...] | | ([facility]) | | | | | | + [...] + + + +---------+ + + | [place]-3 Fatty | Take 1,000 mg by | [...] Surgeon: Frandy castellanos DO; Location: [facility] MAIN OR Cardiac catherization CURRENT MEDICATIONS Previous [...] mg by mouth Daily. CHOLECALCIFEROL (VITAMIN D-3) 42085 UNITS CAPS Take 50,000 Units by mouth [...] pain. She was recently discharged from a [facility] facility. She's had more than 24 [...] | | | | | [place] [address] | | | | | | [phone] | | | | | | | | +--------+ + + + + | 06/26/ | Office | Cardiology | Dora De La Torre | | | 2019 | Visit | | [address] | | | | | | [address] | | | | | | [place] [address] | | | | | | [phone] | | | | | | | [...] [address] | [place] | [phone] | | [facility] | | [address] | | | - LABORATORY | | [...] + | [facility] | [address] | [place] | [phone] | | [facility] | | [address] | | | - LABORATORY | | [...] | | | | | | [employer] | | | | | [...] [address] | [place] | [phone] | | [facility] | | [address] | | | - LABORATORY | | [...] | mL/min/1.73m2 | DORA | | | MALIAN | RATE,ESTIMATED | | MEDICAL | | | | mL/min/1.59o8Zgyc than | | CENTER - | | [...] [address] | [place] | [phone] | | [facility] | | [address] | | | - [...] | | Cells | | M/uL | . DORA | | | | | | [...] + | [facility] | [address] | [place] | [phone] | | [facility] | | [address] | | | - LABORATORY | | [...] | | | | MD MANSI, LACEY ([id number]) | | | | | | on [...]
--- OUTSIDE RECORDS SUMMARY | ~2020-05-03 | XMS | Encounter Summary ---
Demographics + + + | Address | [address] | | | [place] [address] | + + + | Home Phone [...] | Organization | [facility] | | | and [place] | + + + | Address | Unknown | + + + | Phone | Unavailable | + + + Support + + + + + | Name | Relationship | Address | Phone | + + + + + | Araceli Sibley | ECON | [place] | | | | | [address] | | + + + + + Care Team Providers + +------+ + | Care Heating Mechanic Name | Role | Phone | [...] | | | spondylolist | | [address] | | | | | hesis | | [place], | | | | | Spinal | | [place] [address] | | | | | stenosis, | | Phone: | | | | | lumbar | | [phone] | | | | | region, | | Fax: | | | | | without | | [phone] | | | | | neurogenic | [...] + + | 07/02/ | Hospital | [facility] | Frandy Teresa, | Spinal stenosis, | | 2013 | Encounter | MED CTR XRAY [address] | DO [address] | lumbar region, | | | | [place] | [address] [place], [place] | without neurogenic | | | | [place] [address] | [address] | claudication | | | | [phone] | | (Primary Dx) | +--------+ + [...] + + + +---------+ + + | [place]-3 Fatty | Take 1,000 mg by | [...] [address] | | | | | | [place] [address] | | | | | | [phone] | | | | | | | | +--------+ + + + + | 06/26/ | Office | Cardiology | Britt Dora | | | 2019 | Visit | | [address] | | | | | | [address] | | | | | | [place] [address] | | | | | | [phone] | | | | | | | [...]
--- OUTSIDE RECORDS SUMMARY | ~2020-05-03 | XMS | Encounter Summary ---
Demographics + + + | Address | [address] | | | [place] [address] | + + + | Home Phone [...] [place] | | | | | [address] | | + + + + + [...] [address] | [address] [place], [place] | fusion | | | | [place], [place] | [address] | | | | | [address] | | | | | | [phone] | | | +--------+ + + + [...] | | | | [place] [address] | | | | | | [phone] | | | | | | | | +--------+ + + + + | 06/26/ | Office | Cardiology | Dora De La Torre | | | 2019 | Visit | | [address] | | | | | | [address] | | | | | | [place] [address] | | | | | | [phone] | | | | | | | | +--------+ + + + + documented as of this encounter Visit Diagnoses + + | Diagnosis | + + | Lumbago - Primary | + + | S/P lumbar fusion Arthrodesis status | + + documented in this encounter"
--- OUTSIDE RECORDS SUMMARY | ~2020-05-03 | XMS | Encounter Summary ---
Demographics + + + | Address | [address] | | | [place] [address] | + + + | Home Phone [...] [place] | | | | | [address] | | + + + + + Care Team Providers + +------+ + | Care Charging Board Operator Name | Role | Phone [...] | 2018 | | CARDIOLOGY [place] Abad, Vice President | questions about | | | | [address] | | monitor. ) | | | | [place] | | | | | | [address] | | | | | | [phone] | | | +--------+ + + + [...] Miscellaneous Notes Telephone Encounter - Ashley Chávez, Vice President - 08/28/2019 8:32 AM Rory foster says [...] that if she chooses. Patient stated understanding. JPolloW:DOCUMENT REVIEW ATTORNEY-AAMA. [facility] umented in this encounter Plan [...] [address] | | | | | | [place] [address] | | | | | | [phone] | | | | | | | | +--------+ + + + + | 06/26/ | Office | Cardiology | Dora De La Torre | | | 2020 | Visit | | [address] | | | | | | [address] | | | | | | [place] [address] | | | | | | [phone] | | | | | | | | +--------+ + + + + documented as of this encounter Visit Diagnoses Not on filedocumented in this encounter"
--- OUTSIDE RECORDS SUMMARY | ~2020-05-03 | XMS | Encounter Summary ---
Demographics + + + | Address | [address] | | | [place] [address] | + + + | Home Phone [...] [place] | | | | | [address] | | + + + + + Care Team Providers + +------+ + | Care Eap Counselor Name | Role | Phone | [...] [address] | | | | | [address] [place], [place] | [place], [place] | | | | | [address] | [address] | | | | | [phone] | | | +--------+ + + + [...] | | | | | [place] [address] | | | | | | [phone] | | | | | | | | +--------+ + + + + | 06/26/ | Office | Cardiology | Dora De La Torre | | | 2020 | Visit | | [address] | | | | | | [address] | | | | | | [place] [address] | | | | | | [phone] | | | | | | | | +--------+ + + + + documented as of this encounter Visit Diagnoses Not on filedocumented in this encounter"
--- OUTSIDE RECORDS SUMMARY | ~2020-05-03 | XMS | Encounter Summary ---
Demographics + + + | Address | [address] | | | [place] [address] | + + + | Home Phone [...] [place] | | | | | [address] | | + + + + + Care Team Providers + +------+ + | Care Ballet Master/Mistress Name | Role | Phone | + +------+ + | Thierry Fry MD | PCP | | + +------+ + Encounter Details +--------+ + + + + | Date | Type | Department | Care Team | Description | +--------+ + + + + | 03/06/ | Hospital | [facility] | Katharine Cardona PA-C | Essential | | 2015 | Encounter | MED CTR LABORATORY | [address] | hypertension | | | | [address] [place] | [place] [address] | | | | | [place], [place] | [phone] | | | | | [address] | | | | | | [phone] | | | +--------+ + + + [...] 0 | | | | (VITAMIN D-3) [address] | mouth Once a week. | | [...] + + + +---------+ + + | [place]-3 Fatty | Take 1,000 mg by | 60 each | 5 | 03/09/20 | | | Acids (FISH OIL | mouth 2 times daily. | | | 15 | 9 | | CONCENTRATE) 1000 MG | | | | | | | CAPS | | | | | | + + + +---------+ + + | [place]-3 Fatty | Take 1,000 mg by | [...] | 1 | 0 | 02/22/20 | 09/26/201 | | MEDICATIONIndication | Obstructive Sleep | [...] F | | | | | | [place] [address] | | | | | | [phone] | | | | | | | | +--------+ + + + + | 06/26/ | Office | Cardiology | Isacc De La Torre | | | 2020 | Visit | | [address] | | | | | | [address] | | | | | | [place] [address] | | | | | | [phone] | | | | | | | [...] 12 | 7 - 18 mg/dL | [facility] | | | | | | [facility] | | | | | | MEDICAL | | | | | | CENTER - | | | | | | LABORATORY | | + + + + + + | Creatinine | 0.66 | 0.60 - 1.30 | [facility] | | | | | mg/dL | [facility] | | | | | | MEDICAL | | | | | | CENTER - | | | | | | LABORATORY | | + + + + + + | eGFR if not | >60Comment: GLOMERULAR | >=60 | [facility] | | | | FILTRATION | mL/min/1.73m2 | [facility] | | | COLOMBIAN | RATE,ESTIMATED | | MEDICAL | | | | mL/min/1.32r3Ioan than | | CENTER - | | [...] + | [facility] | [address] | [place], [place] | [phone] | | [facility] | | [address] | | | - LABORATORY | | | | + + + + + documented in this encounter Visit Diagnoses + + | Diagnosis | + + | Essential hypertension Unspecified essential hypertension | + + documented in this encounter"
--- OUTSIDE RECORDS SUMMARY | ~2020-05-03 | XMS | Encounter Summary ---
Demographics + + + | Address | [address] | | | [place] [address] | + + + | Home Phone [...] [place], [place] | | | | | [address] | | + + + + + Care Team Providers + +------+ + | Care Manager Car Name | Role | Phone | + +------+ + PCP | Unavailable | + +------+ + Encounter Details +--------+ + + + + | Date | Type | Department | Care Team | Description | +--------+ + + + + | 06/30/ | Hospital | [facility] | | | | 2000 | Encounter | MED CTR EMERGENCY | | | | | | [address] | | | | | | [place] | | | | | | [address] | | | | | | [phone] | | | +--------+ + + + [...] | | | | | [place] [address] | | | | | | [phone] | | | | | | | | +--------+ + + + + | 06/26/ | Office | Cardiology | Dora De La Torre | | | 2020 | Visit | | [address] | | | | | | [address] | | | | | | [place] [address] | | | | | | [phone] | | | | | | | | +--------+ + + + + documented as of this encounter Visit Diagnoses Not on filedocumented in this encounter"
--- OUTSIDE RECORDS SUMMARY | ~2020-05-03 | XMS | Encounter Summary ---
Demographics + + + | Address | [address] | | | [place] [address] | + + + | Home Phone [...] [place], [place] | | | | | [address] | | + + + + + Care Team Providers + +------+ + | Care Computer Aided Design Operator Name | Role | Phone | + +------+ + PCP | Unavailable | + +------+ + Encounter Details +--------+ + + + + | Date | Type | Department | Care Team | Description | +--------+ + + + + | 01/26/ | Hospital | [facility] | [place], | | | 2011 | Encounter | MED CTR XRAY [address] | MD [address] | | | | | [place] | [place] | | | | | [place] [address] | [address] | | | | | [phone] | | | +--------+ + + + [...] [address] | | | | | | [place] [address] | | | | | | [phone] | | | | | | | | +--------+ + + + + | 06/26/ | Office | Cardiology | Dora De La Torre | | | 2019 | Visit | | [address] | | | | | | [address] | | | | | | [place] [address] | | | | | | [phone] | | | | | | | [...] + + | [facility] Diagnostic Imaging Department | [place] | | [address] [facility] [place] | [facility] | | BILATERAL KNEES, THREE VIEWS: [...] Transcribed | | | Date/Time: 01/27/2012 17:18 Oyster Farmer: | | | <Electronically Signed by Willie Perry MD> 01/27/12 1094 | | + + + + + | Procedure Note | + + | Juan, Rad Conversion - 11/30/2013 5:[address] [facility] | | Diagnostic Imaging Department [address] [place] [address] | | BILATERAL KNEES, THREE VIEWS: 01/27/2012 [...] 17:12 | |Transcribed Date/Time: 01/27/2012 17:18 | |Oyster Farmer: | |<Electronically Signed by Willie Perry MD> 01/27/122253 | + + + +---------+ + + | Performing | Address | City/State/Zipcode | Phone Number | | Organization | | | | + +---------+ + + | [place] | | | | | [facility] | | | | + +---------+ + + documented in this encounter Visit Diagnoses Not on filedocumented in this encounter"
--- OUTSIDE RECORDS SUMMARY | ~2020-05-03 | XMS | Encounter Summary ---
Demographics + + + | Address | [address] | | | [place] [address] | + + + | Home Phone [...] [place] | | | | | [address] | | + + + + + Care Team Providers + +------+ + | Care Artists' Booking Representative Name | Role | Phone | + +------+ + | Basim Bolanos MD | PCP | | + +------+ + Encounter Details +--------+ + + + + | Date | Type | Department | Care Team | Description | +--------+ + + + + | 03/01/ | Abstract | [facility] [place] | [facility], | | | 2012 | | GASTROENTEROLOGY | FOR[place]O Thomas [address] | | | | | [address] | [address] | | | | | [address] [place], [place] | [place], [place] | | | | | [address] | [address] | | | | | [phone] | | | +--------+ + + + [...] | | | | | [place] [address] | | | | | | [phone] | | | | | | | | +--------+ + + + + | 06/26/ | Office | Cardiology | Dora De La Torre | | | 2019 | Visit | | [address] | | | | | | [address] | | | | | | [place] [address] | | | | | | [phone] | | | | | | | | +--------+ + + + + documented as of this encounter Visit Diagnoses Not on filedocumented in this encounter"
--- OUTSIDE RECORDS SUMMARY | ~2020-05-03 | XMS | Encounter Summary ---
Demographics + + + | Address | [address] | | | [place] [address] | + + + | Home Phone [...] [place] | | | | | [address] | | + + + + + Care Team Providers + +------+ + | Care Roll Slicing Machine Tender Name | Role | Phone [...] [address] | [address] [place], [place] | Hypothyroidism; | | | | [place] | [address] | GERD; BACK PAIN, | | | | [address] | | LUMBAR, WITH | | | | [phone] | | RADICULOPATHY; | | | | [...] | | | | | [place] [address] | | | | | | [phone] | | | | | | | | +--------+ + + + + | 06/26/ | Office | Cardiology | Dora De La Torre | | | 2020 | Visit | | [address] | | | | | | [address] | | | | | | [place] [address] | | | | | | [phone] | | | | | | | [...]
--- OUTSIDE RECORDS SUMMARY | ~2020-05-03 | XMS | Encounter Summary ---
Demographics + + + | Address | [address] | | | [place] [address] | + + + | Home Phone [...] [place] | | | | | [address] | | + + + + + Care Team Providers + +------+ + | Care Vitamin Manager Name | Role | Phone | [...] + + | 08/16/ | Documentati | [facility] | Katharine Moncada, | Other (urgent | | 2019 | on | CARDIOLOGY [place] | Technologist | report) | | | | [address] | | | | | | [place] | | | | | | [address] | | | | | | [phone] | | | +--------+ + + + [...] | | | | | [place] [address] | | | | | | [phone] | | | | | | | | +--------+ + + + + | 06/26/ | Office | Cardiology | Dora De La Torre | | | 2020 | Visit | | [address] | | | | | | [address] | | | | | | [place] [address] | | | | | | [phone] | | | | | | | | +--------+ + + + + documented as of this encounter Visit Diagnoses Not on filedocumented in this encounter"
--- OUTSIDE RECORDS SUMMARY | ~2020-05-03 | XMS | Encounter Summary ---
Demographics + + + | Address | [address] | | | [place] [address] | + + + | Home Phone [...] [place] | | | | | [address] | | + + + + + Care Team Providers + +------+ + | Care Field Services Analyst Name | Role | Phone | [...] + + | 08/15/ | Documentati | [facility] | Katharine Moncada, | Other (urgent | | 2019 | on | CARDIOLOGY [place] | Technologist | report) | | | | [address] | | | | | | [place] | | | | | | [address] | | | | | | [phone] | | | +--------+ + + + [...] | | | | | [place] [address] | | | | | | [phone] | | | | | | | | +--------+ + + + + | 06/26/ | Office | Cardiology | Dora De La Torre | | | 2020 | Visit | | [address] | | | | | | [address] | | | | | | [place] [address] | | | | | | [phone] | | | | | | | | +--------+ + + + + documented as of this encounter Visit Diagnoses Not on filedocumented in this encounter"
--- OUTSIDE RECORDS SUMMARY | ~2020-05-03 | XMS | Encounter Summary ---
Demographics + + + | Address | [address] | | | [place] [address] | + + + | Home Phone [...] [place] | | | | | [address] | | + + + + + Care Team Providers + +------+ + | Care Radiology Practitioner Assistant Name | Role | Phone | [...] | | | | | pain, | [place], [place] | | | | | | bilateral | [address] | | | | | | Degenerative | Phone: | | | | | | disc | [phone] | | | | | | disease, | Fax: | | | | | | lumbar | [phone] | | | | | | Spinal [...] [address] | [address] [place], [place] | (Primary Dx); Knee | | | | [place] | [address] | pain, bilateral; | | | | [address] | | DEGENERATIVE DISC | | | | [phone] | | DISEASE, LUMBAR | | | [...] | | | | | [place] [address] | | | | | | [phone] | | | | | | | | +--------+ + + + + | 06/26/ | Office | Cardiology | Dora De La Torre | | | 2020 | Visit | | [address] | | | | | | [address] | | | | | | [place] [address] | | | | | | [phone] | | | | | | | [...]
--- OUTSIDE RECORDS SUMMARY | ~2020-05-03 | XMS | Encounter Summary ---
Demographics + + + | Address | [address] | | | [place] [address] | + + + | Home Phone [...] [place] | | | | | [address] | | + + + + + Care Team Providers + +------+ + | Care Laboratory Supervisor Name | Role | Phone | [...] + | 12/03/ | Refill | [facility] | Frandy Teresa, | Medication Refill | | 2014 | | NEUROSURGERY [address] | DO [address] | | | | | [address] [facility] [address] | [address] [place], [place] | | | | | [place], [place] | [id number] | | | | | [address] | | | | | | [phone] | | | +--------+--------+ + + + [...] office and the number we have in [facility] is not correct. Art Andersen NP Chart notes faxed to [phone] along with medication list. Sent request to update contac t information in [facility] To Kathy @ [facility] Support Team documented in this [...] [address] | | | | | | [place] [address] | | | | | | [phone] | | | | | | | | +--------+ + + + + | 06/26/ | Office | Cardiology | Dora De La Torre | | | 2019 | Visit | | [address] | | | | | | [address] | | | | | | [place] [address] | | | | | | [phone] | | | | | | | | +--------+ + + + + documented as of this encounter Visit Diagnoses Not on filedocumented in this encounter"
--- OUTSIDE RECORDS SUMMARY | ~2020-05-03 | XMS | Encounter Summary ---
Demographics + + + | Address | [address] | | | [place] [address] | + + + | Home Phone [...] [place], [place] | | | | | [address] | | + + + + + [...] | 07/17/ | Hospital | [facility] | | | | 1997 | Encounter | MED CTR EMERGENCY | | | | | | [address] | | | | | | [place] | | | | | | [address] | | | | | | [phone] | | | +--------+ + + + [...] | | | | | [place] [address] | | | | | | [phone] | | | | | | | | +--------+ + + + + | 06/26/ | Office | Cardiology | Dora De La Torre | | | 2020 | Visit | | [address] | | | | | | [address] | | | | | | [place] [address] | | | | | | [phone] | | | | | | | | +--------+ + + + + documented as of this encounter Visit Diagnoses Not on filedocumented in this encounter"
--- OUTSIDE RECORDS SUMMARY | ~2020-05-03 | XMS | Encounter Summary ---
Demographics + + + | Address | [address] | | | [place] [address] | + + + | Home Phone [...] [place] | | | | | [address] | | + + + + + Care Team Providers + +------+ + | Care Reliability Manager Name | Role | Phone | [...] | | | [address] [place] | [place] [address] | | | | | [place] [address] | | | | | | [phone] | | | +--------+ + + + [...] [address] | | | | | | [place] [address] | | | | | | [phone] | | | | | | | | +--------+ + + + + | 06/26/ | Office | Cardiology | Dora De La Torre | | | 2019 | Visit | | [address] | | | | | | [address] | | | | | | [place] [address] | | | | | | [phone] | | | | | | | [...]
--- OUTSIDE RECORDS SUMMARY | ~2020-05-03 | XMS | Encounter Summary ---
Demographics + + + | Address | [address] | | | [place] [address] | + + + | Home Phone [...] [place] | | | | | [address] | | + + + + + Care Team Providers + +------+ + | Care Hardboard Panel Printer Name | Role | Phone | + [...] + + | 08/14/ | Documentati | [facility] | Katharine Moncada, | Other (urgent | | 2019 | on | CARDIOLOGY [place] | Technologist | report) | | | | [address] | | | | | | [place] | | | | | | [address] | | | | | | [phone] | | | +--------+ + + + [...] | | | | | [place] [address] | | | | | | [phone] | | | | | | | | +--------+ + + + + | 06/26/ | Office | Cardiology | Dora De La Torre | | | 2020 | Visit | | [address] | | | | | | [address] | | | | | | [place] [address] | | | | | | [phone] | | | | | | | | +--------+ + + + + documented as of this encounter Visit Diagnoses Not on filedocumented in this encounter"
--- OUTSIDE RECORDS SUMMARY | ~2020-05-03 | XMS | Encounter Summary ---
Demographics + + + | Address | [address] | | | [place] [address] | + + + | Home Phone [...] [place], [place] | | | | | [address] | | + + + + + Care Team Providers + +------+ + | Care Sewer Contractor Name | Role | Phone | + +------+ + PCP | Unavailable | + +------+ + Encounter Details +--------+ + + + + | Date | Type | Department | Care Team | Description | +--------+ + + + + | 08/21/ | Hospital | [facility] | | | | 1996 | Encounter | [facility] | | | | | | [address] | | | | | | [place] | | | | | | [address] | | | | | | [phone] | | | +--------+ + + + [...] | | | | | [place] [address] | | | | | | [phone] | | | | | | | | +--------+ + + + + | 06/26/ | Office | Cardiology | [facility] | | | 2020 | Visit | | [address] | | | | | | [address] | | | | | | [place] [address] | | | | | | [phone] | | | | | | | | +--------+ + + + + documented as of this encounter Visit Diagnoses Not on filedocumented in this encounter"
--- OUTSIDE RECORDS SUMMARY | ~2020-05-03 | XMS | Encounter Summary ---
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 ) | | | | [place] | | | | | | [address] | | | | | | [phone] | | | +--------+ + + + [...] Miscellaneous Notes Telephone Encounter - Ashley Chávez, Golf Shoe Spike Assembler - 07/24/2019 11:13 AM Seferino t says [...] gals to see what can be done. JDW:GUM ROLLING MACHINE TENDER-AAMA. [facility] umented in this [...] | | | | [place] [address] | | | | | | [phone] | | | | | | | | +--------+ + + + + | 06/26/ | Office | Cardiology | Dora De La Torre | | | 2019 | Visit | | [address] | | | | | | [address] | | | | | | [place] [address] | | | | | | [phone] | | | | | | | | +--------+ + + + + documented as of this encounter Visit Diagnoses Not on filedocumented in this encounter"
--- OUTSIDE RECORDS SUMMARY | ~2020-05-03 | XMS | Encounter Summary ---
Demographics + + + | Address | [address] | | | [place] [address] | + + + | Home Phone [...] [place] | | | | | [address] | | + + + + + Care Team Providers + +------+ + | Care Funeral Pre Arrangement Specialist Name | Role | Phone | + +------+ + | Natalee Andersen NP | PCP | | + +------+ + Encounter Details +--------+---------+ + + + | Date | Type | Department | Care Team | Description | +--------+---------+ + + + | 06/25/ | Surgery | [facility] | Frandy Teresa, | Canceled | | 2013 | | MED CTR OR INTRA OP | DO [address] | PROCEDURE NOT | | | | [address] | [address] [place], [place] | PERFORMED | | | | [place], [place] | [address] | | | | | [address] | | | | | | [phone] | | | +--------+---------+ + + + [...] + + + +---------+ + + | Oliver-3 Fatty | Take 1,000 mg by | [...] this en counter H&P Notes ONBRUCE ABREU [facility] - 06/21/2014 12:00 AM PDT 14 [...] MD at 06/26/2014 8:05 AM PDTONBRUCE ABREU [facility] - 06/26 12:00 AM PDT NBRUCE ZAMORA N [facility] - 06/26/2014 12:00 AM PDT NBASE SCAN [facility] - 06/12/2014 12:00 AM PDTElectronically signed by Mariah Schulte at 06/12 7:30 AM [facility] - 06/11/2014 12:00 AM PDT documented in this encounter Miscellaneous Notes Miscellaneous - ONBASE SCAN [facility] - 06/26/2014 12:00 AM PDT lan [...] stenosis, lumbar region, without neurogenic claudication ). Regional Truck Driver visit is in response to an electronic spiritual care consult request. Patient wa s resting comfortably in bed; she was attended by her mom and dad - both sate nearby and see med very attentive and supportive. Cindy is Nondenominational, attends [employer], and is strong in her rangel. She is excited about taking care of her back problem and fe els very secure in Dr. Teresa's care. She welcomed prayer, and expressed appreciation for th visit. Follow up with regular visits, emotional and spiritual support. iscellaneo us - ONBASE SCAN [facility] - 06/25/2014 12:00 AM PDTElectronically signed [...] [address] | | | | | | [place] [address] | | | | | | [phone] | | | | | | | | +--------+ + + + + | 06/26/ | Office | Cardiology | Dora De La Torre | | | 2019 | Visit | | [address] | | | | | | [address] | | | | | | [place] [address] | | | | | | [phone] | | | | | | | [...] | | | | mmol/L | [facility] | | | | | | [...] mL/min/1.73m2 | [facility] | | | [facility] | RATE,ESTIMATED | | MEDICAL | | | | mL/min/1.30k9Qvsv than | | CENTER - | | [...] + | [facility] | [address] | [place], [place] | [phone] | | [facility] | | [address] | | | - LABORATORY | | | | + + + + + | [facility] | [address] | [place], [place] | | | [facility] | | [address] [place] [address] | | | - LABORATORY | | [...] + | [facility] | [address] | [place], [place] | [phone] | | [facility] | | [address] | | | - LABORATORY | | | | + + + + + | [facility] | [address] | [place] | | | [facility] | | [id number] | | | - LABORATORY [...] [address] | [place] | [phone] | | [facility] | | [address] | | | - LABORATORY | | | | + + + + + | [facility] | [address] | [place] | | | [facility] | | [address], [facility] | | | [...] | | Screen | | | STLa DORA | | [...] St | [place] | | | [facility] | | [address] | | | - BLOOD BANK | [...] + | [facility] | [address] | [place], [place] | [phone] | | [facility] | | [address] | | | - LABORATORY | | | | + + + + + | [facility] | [address] | [place], [place] | | | [facility] | | [address], [facility] | | | [...]
--- OUTSIDE RECORDS SUMMARY | ~2020-05-03 | XMS | Encounter Summary ---
Demographics + + + | Address | [address] | | | [place] [address] | + + + | Home Phone [...] [place] | | | | | [address] | | + + + + + Care Team Providers + +------+ + | Care Derivatives Trader Name | Role | Phone | [...] [place] | | | | | | [address] | | | | | | [phone] | | | +--------+ + + + [...] | | | | | [place] [address] | | | | | | [phone] | | | | | | | | +--------+ + + + + | 06/26/ | Office | Cardiology | Dora De La Torre | | | 2020 | Visit | | [address] | | | | | | [address] | | | | | | [place] [address] | | | | | | [phone] | | | | | | | | +--------+ + + + + documented as of this encounter Visit Diagnoses Not on filedocumented in this encounter"
--- OUTSIDE RECORDS SUMMARY | ~2020-05-03 | XMS | Encounter Summary ---
Demographics + + + | Address | [address] | | | [place] [address] | + + + | Home Phone [...] [place] | | | | | [address] | | + + + + + [...] | 08/26/ | Refill | [facility] | Frandy Teresa, | Medication Refill | | 2013 | | NEUROSURGERY [address] | DO [address] | | | | | [facility] | [address] [place], [place] | | | | | [place], [place] | [id number] | | | | | [address] | | | | | | [phone] | | | +--------+--------+ + + + [...] to notify that p rescription refill for Hilmar has been authorized. Informed about MRI results per MD results. Also notified about new medication neurontin. Pt verbalized understanding and will notify o ur office if her numbness to bilat feet (upper and lower) doesn't improve. Pt requested refi ll rx of Hilmar to be mailed via certified mail to her [facility] signed by Megan Schreiber, RN [...] PSTPt called to requesting medication refill of Hilmar. Pt c/o l ower back and left [...] [address] | | | | | | [place] [address] | | | | | | [phone] | | | | | | | | +--------+ + + + + | 06/26/ | Office | Cardiology | Dora De La Torre | | | 2019 | Visit | | [address] | | | | | | [address] | | | | | | [place] [address] | | | | | | [phone] | | | | | | | | +--------+ + + + + documented as of this encounter Visit Diagnoses Not on filedocumented in this encounter"
--- OUTSIDE RECORDS SUMMARY | ~2020-05-03 | XMS | Encounter Summary ---
Demographics + + + | Address | [address] | | | [place] [address] | + + + | Home Phone [...] [place] | | | | | [address] | | + + + + + Care Team Providers + +------+ + | Care Sieve Repairer Name | Role | Phone | [...] + | 04/30/ | [facility] | [facility] | Russell Alfaro PA | ROGERS on CPAP (Primary | | 2015 | Visit | SLEEP DISORDER [address] | [address] | Dx) | | | | [address] | [place] | | | | | [place] [address] | [address] | | | | | [phone] | | | +--------+---------+ + + + [...] encounter Progress Notes Gail Cadet, Master of ACSIAN - 04/30/2015 11:12 AM PDTFormatting of this note might be khoi rivas from the original. 04/30/15 [address] Depression Inventory-II Depression Score 9 - Minimal depression Insomnia Severity Index Insomnia Severity Index 13 [place] Sleepiness Scale Sitting and reading 3 Watching [...] appro priate paperwork. Thirty minutes were spent lggc-op-guvc, with the majority of time spent i [...] | | | | | [place] [address] | | | | | | [phone] | | | | | | | | +--------+ + + + + | 06/26/ | Office | Cardiology | Dora De La Torre | | | 2020 | Visit | | [address] | | | | | | [address] | | | | | | [facility] [place] [address] | | | | | | [phone] | | | | | | | | +--------+ + + + + documented as of this encounter Visit Diagnoses + + | Diagnosis | + + | ROGERS on CPAP - Primary Obstructive sleep apnea (adult) (pediatric) | + + documented in this encounter"
--- OUTSIDE RECORDS SUMMARY | ~2020-05-03 | XMS | Encounter Summary ---
Demographics + + + | Address | [address] | | | [place] [address] | + + + | Home Phone [...] [place] | | | | | [address] | | + + + + + Care Team Providers + +------+ + | Care Adjunct Phlebotomy Instructor Name | Role | Phone | [...] [address] | [address] [place], [place] | | | | | [place], [place] | [address] | | | | | [address] | | | | | | [phone] | | | +--------+ + + + [...] [address] | | | | | | [place] [address] | | | | | | [phone] | | | | | | | | +--------+ + + + + | 06/26/ | Office | Cardiology | Dora De La Torre | | | 2020 | Visit | | [address] | | | | | | [address] | | | | | | [place] [address] | | | | | | [phone] | | | | | | | [...] + | MISCELLANEOUS LAB | | | [phone] | + +---------+ + + | MISCELANIOUS LAB | | | [phone] | + +---------+ + + documented in this encounter Visit Diagnoses + + | Diagnosis | + + | Back pain - Primary Backache, unspecified | + + documented in this encounter"
--- OUTSIDE RECORDS SUMMARY | ~2020-05-03 | XMS | Encounter Summary ---
Demographics + + + | Address | [address] | | | [place] [address] | + + + | Home Phone [...] [place], [place] | | | | | [address] | | + + + + + Care Team Providers + +------+ + | Care House Decorator Name | Role | Phone | + +------+ + PCP | Unavailable | + +------+ + Encounter Details +--------+ + + + + | Date | Type | Department | Care Team | Description | +--------+ + + + + | 02/02/ | Hospital | [facility] | Serafin Bautista | | | 2011 | Encounter | MED CTR XRAY [address] | [address], [address] | | | | | [place] | [place] | | | | | [place] [address] | [address] | | | | | [phone] | | | +--------+ + + + [...] [address] | | | | | | [place] [address] | | | | | | [phone] | | | | | | | | +--------+ + + + + | 06/26/ | Office | Cardiology | Dora De La Torre | | | 2019 | Visit | | [address] | | | | | | [address] | | | | | | [place] [address] | | | | | | [phone] | | | | | | | [...] Performed At | + + + | [facility] Diagnostic Imaging Department | [place] | | [address] [facility] [facility] | [place] [facility] | | PROCEDURE: EPIDURAL STEROID | DIAG [...] Transcribed Date/Time: | | | 02/03/2012 18:45 Peritoneal Dialysis Registered Nurse: <Electronically Signed | | | by Serafin Bautista MD> 02/14/12 0916 | | + + + + + | Procedure Note | + + | Juan, Rad Conversion - 11/30/2013 5:06 PM [facility] | | Diagnostic Imaging Department | [...] | Transcribed Date/Time: 02/03/2012 18:45 | | Peritoneal Dialysis Registered Nurse: | | <Electronically Signed by Serafin Bautista [...]
--- OUTSIDE RECORDS SUMMARY | ~2020-05-03 | XMS | Encounter Summary ---
Demographics + + + | Address | [address] | | | [place] [address] | + + + | Home Phone [...] Author + + + | Author | [facility] | + + + | Organization | [facility] | + + + | Address | Unknown | + + + | Phone | Unavailable | + + + Support + + + + + | Name | Relationship | Address | Phone | + + + + + | Kelsy Bautista | ECON | [address] | | | | | [place] | | | | | [address] | | + + + + + Care Team Providers + +------+ + | Care Java Analyst Name | Role | Phone | [...] [address] | | | | | | [place], [place] | | | | | | [address] | | | +--------+ + + + [...]
--- OUTSIDE RECORDS SUMMARY | ~2020-05-03 | XMS | Encounter Summary ---
Demographics + + + | Address | [address] | | | [place] [address] | + + + | Home Phone [...] [place] | | | | | [address] | | + + + + + Care Team Providers + +------+ + | Care Taxicab Coordinator Name | Role | Phone | [...] | 02/01/ | Telephone | [facility] | Frandy Teresa, | Imaging Only | | 2019 | | NEUROSURGERY [address] | DO [address] | | | | | [address] | [address] [place], [place] | | | | | [place], [place] | [id number] | | | | | [address] | | | | | | [phone] | | | +--------+ + + + [...] | | | | | | [facility] [place] [address] | | | | | | [phone] | | | | | | | | +--------+ + + + + | 06/26/ | Office | Cardiology | Dora De La Torre | | | 2020 | Visit | | [address] | | | | | | [address] | | | | | | [place] [address] | | | | | | [phone] | | | | | | | | +--------+ + + + + documented as of this encounter Visit Diagnoses Not on filedocumented in this encounter"
--- OUTSIDE RECORDS SUMMARY | ~2020-05-03 | XMS | Encounter Summary ---
Demographics + + + | Address | [address] | | | [place] [address] | + + + | Home Phone [...] [place], [place] | | | | | [address] | | + + + + + Care Team Providers + +------+ + | Care Tax Representative Name | Role | Phone | + +------+ + PCP | Unavailable | + +------+ + Encounter Details +--------+ + + + + | Date | Type | Department | Care Team | Description | +--------+ + + + + | 06/23/ | Hospital | [facility] | | | | 2000 | Encounter | MED CTR GENERIC OP | | | | | | CONV DEPT [address] | | | | | | [place], | | | | | | [place] [address] | | | | | | [phone] | | | +--------+ + + + [...] | | | | | [place] [address] | | | | | | [phone] | | | | | | | | +--------+ + + + + | 06/26/ | Office | Cardiology | Dora De La Torre | | | 2019 | Visit | | [address] | | | | | | [address] | | | | | | [place] [address] | | | | | | [phone] | | | | | | | | +--------+ + + + + documented as of this encounter Visit Diagnoses Not on filedocumented in this encounter"
--- OUTSIDE RECORDS SUMMARY | ~2020-05-03 | XMS | Encounter Summary ---
Demographics + + + | Address | [address] | | | [place] [address] | + + + | Home Phone [...] [place] | | | | | [address] | | + + + + + Care Team Providers + +------+ + | Care Hotel Security Officer Name | Role | Phone [...] + + | 08/09/ | Documentati | [facility] | Katharine Moncada, | Other (end of study) | | 2019 | on | CARDIOLOGY [place] | Technologist | | | | | [address] | | | | | | [place], [place] | | | | | | [address] | | | | | | [phone] | | | +--------+ + + + [...] Technologist - 08/09/2019 11:59 PM PDT Cardiac Drum Sealer Date of Event Monitor: 08/09/19 Referring Physician: [...] [address] | | | | | | [place] [address] | | | | | | [phone] | | | | | | | | +--------+ + + + + | 06/26/ | Office | Cardiology | Dora De La Torre | | | 2020 | Visit | | [address] | | | | | | [address] | | | | | | [place] [address] | | | | | | [phone] | | | | | | | | +--------+ + + + + documented as of this encounter Visit Diagnoses Not on filedocumented in this encounter"
--- OUTSIDE RECORDS SUMMARY | ~2020-05-03 | XMS | Encounter Summary ---
Demographics + + + | Address | [address] | | | [place] [address] | + + + | Home Phone [...] [place], [place] | | | | | [address] | | + + + + + Care Team Providers + +------+ + | Care Global Program Manager Name | Role | Phone | + +------+ + PCP | Unavailable | + +------+ + Encounter Details +--------+ + + + + | Date | Type | Department | Care Team | Description | +--------+ + + + + | 04/16/ | [facility] | [facility] | Deon Gonzales | | | 2004 | Encounter | MED CTR SLEEP | MD Laureano [address] | | | | | [place] [address] | [place] [facility] | | | | | [place], [place] | [place] [address] | | | | | [address] | [phone] | | | | | [phone] | | | +--------+ + + + [...] | | | | | [place] [address] | | | | | | [phone] | | | | | | | | +--------+ + + + + | 06/26/ | Office | Cardiology | Dora De La Torre | | | 2019 | Visit | | [address] | | | | | | [address] | | | | | | [place] [address] | | | | | | [phone] | | | | | | | | +--------+ + + + + documented as of this encounter Visit Diagnoses Not on filedocumented in this encounter"
--- OUTSIDE RECORDS SUMMARY | ~2020-05-03 | XMS | Encounter Summary ---
Demographics + + + | Address | [address] | | | [place] [address] | + + + | Home Phone [...] [place] | | | | | [address] | | + + + + + Care Team Providers + +------+ + | Care Injection Specialist Name | Role | Phone | [...] | | | | | ECHO | [place], [place] | | | | | | Complete | [address] | | | | | | | Phone: | | | | | | | [phone] | | | | | | | Fax: | | | | | | | [phone] | | + +--------+ + + + + Reason for Visit + + + | Reason | Comments | + + + | Follow-up | 6 month | + + + Encounter Details +--------+---------+ + + + | Date | Type | Department | Care Team | Description | +--------+---------+ + + + | 04/03/ | Office | [facility] | Desiree Peterson DO | Left bundle branch | | 2020 | Visit | CARDIOLOGY [place] | [address] | block (Primary Dx); | | | | [address] | [address] [place], [place] | Benign essential | | | | [address] | [address] | HTN; New onset left | | | | [place], [place] | | bundle branch block | | | | [address] | | (LBBB); Obesity, | | | | [phone] | | Class III, BMI | | | | | | 40-49.9 (morbid | | | | | | obesity) ([facility]); | | | | | | History [...] Peterson DO - 04/03/2020 10:20 AM PDT [facility] Cardiology Cardiology Follow Up Note Reason [...] rtake in exercise. She recently got a ChiKaymbuua and has been walking him more regularly. 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 Blood Glucose Monitoring Suppl (webtideIO FLEX SYSTEM) w/Device KIT by Does not ap ply route. budesonide-formoterol (SYMBICORT) 160-4.5 MCG/ACT inhaler Inhale 2 puffs into the lungs 2 (two) times daily. Calcium Carbonate Antacid 1000 MG tablet Take 1,000 mg by mouth 3 (three) times daily. Cholecalciferol (VITAMIN D3) 9[address] units CAPS Take by mouth once a [...] ALT 76, alkaline phosphatase 134. Labs: 10/20/2019:( [facility]) CBC: WBC 7.1, RBC 4.93, hemoglobin [...] | | | | | [place] [address] | | | | | | [phone] | | | | | | | | +--------+ + + + + | 06/26/ | Office | Cardiology | Dora De La Torre | | | 2020 | Visit | | [address] | | | | | | [address] | | | | | | [place] [address] | | | | | | [phone] | | | | | | | [...]
--- OUTSIDE RECORDS SUMMARY | ~2020-05-03 | XMS | Encounter Summary ---
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 ) | | | | [place] | | | | | | [address] | | | | | | [phone] | | | +--------+ + + + [...] Miscellaneous Notes Telephone Encounter - Ashley Chávez Signs And Displays Salesperson - 10/25/2019 8:44 AM PSTCall m cierra [...] Would not answer my calling her again. CLAYTONW:IRINA-AAMA. el ephone Encounter - Ashley Chávez Signs And Displays Salesperson - 10/25/2019 8:40 AM PST----- Mess age from Desiree Peterson DO sent at 10/24/2019 8:42 PM PST ----- Regarding: RE: Patient's Metoprolol. We can stay on the same dose of metoprolol for now. Thanks ----- Message ----- From: Ashley Chávez Signs And Displays Salesperson Sent: 10/23/2019 10:52 AM PST To: Desiree [...] your recommendations. Please advise. Thank you! doc umphilipp in this encounter Plan of Treatment [...] | | | | | [place] [address] | | | | | | [phone] | | | | | | | | +--------+ + + + + | 06/26/ | Office | Cardiology | Dora De La Torre | | | 2020 | Visit | | [address] | | | | | | [address] | | | | | | [place] [address] | | | | | | [phone] | | | | | | | | +--------+ + + + + documented as of this encounter Visit Diagnoses Not on filedocumented in this encounter"
--- OUTSIDE RECORDS SUMMARY | ~2020-05-03 | XMS | Encounter Summary ---
Demographics + + + | Address | [address] | | | [place] [address] | + + + | Home Phone [...] [place] | | | | | [address] | | + + + + + Care Team Providers + +------+ + | Care Re Etcher Name | Role | Phone | + +------+ + | Hari Samson DO | PCP | | + +------+ + Encounter Details +--------+ + + + + | Date | Type | Department | Care Team | Description | +--------+ + + + + | 06/12/ | Hospital | [facility] | Frandy Teresa, | No Show | | 2014 | Encounter | MED CTR | DO [address] | | | | | ELECTRODIAGNOSTICS | [address] [place], [place] | | | | | [address] [place] | [address] | | | | | [place] [address] | | | | | | [phone] | | | +--------+ + + + [...] | | | | | [place] [address] | | | | | | [phone] | | | | | | | | +--------+ + + + + | 06/26/ | Office | Cardiology | Dora De La Torre | | | 2020 | Visit | | [address] | | | | | | [address] | | | | | | [place] [address] | | | | | | [phone] | | | | | | | | +--------+ + + + + documented as of this encounter Visit Diagnoses Not on filedocumented in this encounter"
--- OUTSIDE RECORDS SUMMARY | ~2020-05-03 | XMS | Encounter Summary ---
Demographics + + + | Address | [address] | | | [place] [address] | + + + | Home Phone [...] [place] | | | | | [address] | | + + + + + Care Team Providers + +------+ + | Care Product Expert Name | Role | Phone | [...] + | 09/10/ | Documentati | [facility] | Katharine Moncada, | Other (urgent | | 2019 | on | CARDIOLOGY [place] | Technologist | report) | | | | [address] | | | | | | [place] | | | | | | [address] | | | | | | [phone] | | | +--------+ + + + [...] | | | | | [place] [address] | | | | | | [phone] | | | | | | | | +--------+ + + + + | 06/26/ | Office | Cardiology | Dora De La Torre | | | 2020 | Visit | | [address] | | | | | | [address] | | | | | | [place] [address] | | | | | | [phone] | | | | | | | | +--------+ + + + + documented as of this encounter Visit Diagnoses Not on filedocumented in this encounter"
--- OUTSIDE RECORDS SUMMARY | ~2020-05-03 | XMS | Encounter Summary ---
Demographics + + + | Address | [address] | | | [place] [address] | + + + | Home Phone [...] [place] | | | | | [address] | | + + + + + [...] + + | 07/06/ | Hospital | [facility] | Latricia Feliciano | | | 2014 | Encounter | MED CTR ACUTE | D, PT [address] | | | | | PHYSICAL THERAPY | NEFTALIE [place] | | | | | [address] | [address] | | | | | [place] [address] | | | | | | [phone] | | | +--------+ + + + [...] + + + +---------+ + + | [place]-3 Fatty | Take 1,000 mg by | [...] CANTU | | | | | | [place] [address] | | | | | | [phone] | | | | | | | | +--------+ + + + + | 06/26/ | Office | Cardiology | Dora De La Torre | | | 2020 | Visit | | [address] | | | | | | [address] | | | | | | [place] [address] | | | | | | [phone] | | | | | | | | +--------+ + + + + documented as of this encounter Visit Diagnoses Not on filedocumented in this encounter"
--- OUTSIDE RECORDS SUMMARY | ~2020-05-03 | XMS | Encounter Summary ---
Demographics + + + | Address | [address] | | | [place] [address] | + + + | Home Phone [...] [place] | | | | | [address] | | + + + + + Care Team Providers + +------+ + | Care Electronic Lab Technician Name | Role | Phone [...] + + | 10/04/ | Office | [facility] | Desiree Peterson DO | ROGERS on CPAP (Primary | | 2019 | Visit | CARDIOLOGY [place] | [address] | Dx); Morbid obesity | | | | [address] | [place], [place] | (HCC); Benign | | | | [address] | [address] | essential HTN; | | | | [place], [place] | | Atrial fibrillation, | | | | [address] | | unspecified type | | | | [phone] | | ([facility]) | +--------+---------+ + + + [...] Desiree Peterson, - 10/04/2019 11:40 AM PST [facility] Cardiology Cardiology Follow Up Note [...] rtake in exercise. She recently got a Inhabi and has been walking him more regularly. [...] by mouth daily. Blood Glucose Monitoring Suppl (Heart MetabolicsIO FLEX SYSTEM) w/Device KIT by Does not ap ply route. budesonide-formoterol (SYMBICORT) 160-4.5 MCG/ACT inhaler Inhale 2 puffs into the lungs 2 (two) times daily. Calcium Carbonate Antacid 1000 MG tablet Take 1,000 mg by mouth 3 (three) times daily. Cholecalciferol (VITAMIN D3) 66817 units CAPS Take by mouth once a [...] CANTU | | | | | | [place] [address] | | | | | | [phone] | | | | | | | | +--------+ + + + + | 06/26/ | Office | Cardiology | Dora De La Torre | | | 2019 | Visit | | [address] | | | | | | [address] | | | | | | [place] [address] | | | | | | [phone] | | | | | | | [...]
--- OUTSIDE RECORDS SUMMARY | ~2020-05-03 | XMS | Encounter Summary ---
Demographics + + + | Address | [address] | | | [place] [address] | + + + | Home Phone [...] [place] | | | | | [address] | | + + + + + Care Team Providers + +------+ + | Care Artist Relationship Manager Name | Role | Phone | [...] [place] | | | | | | [address] | | | | | | [phone] | | | +--------+ + + + [...] | | | | | [place] [address] | | | | | | [phone] | | | | | | | | +--------+ + + + + | 06/26/ | Office | Cardiology | Dora De La Torre | | | 2020 | Visit | | [address] | | | | | | [address] | | | | | | [place] [address] | | | | | | [phone] | | | | | | | | +--------+ + + + + documented as of this encounter Visit Diagnoses Not on filedocumented in this encounter"
--- OUTSIDE RECORDS SUMMARY | ~2020-05-03 | XMS | Encounter Summary ---
Demographics + + + | Address | [address] | | | [place] [address] | + + + | Home Phone [...] [place] | | | | | [address] | | + + + + + Care Team Providers + +------+ + | Care Substitute Crossing Guard Name | Role | Phone | [...] | | Required | | branch | GRIPPER INSTALLER [address] | [address] | | | | | block | [address] | [place] | | | | | Paroxysmal | [place] | [address] | | | | | A-fib ([facility]) | [place], [place] | [address] | | | | | | [address] | [place], [place] | | | | | Schizoaffect | Phone: | [phone] Phone: | | | | | chris | [phone] | [phone] | | | | | disorder, | Fax: | Fax: | | | | | bipolar type | [phone] | [phone] | | | | | (HCC) | [...] + + | 04/24/ | Office | [facility] | Dora De La Torre | Left bundle branch | | 2020 | Visit | CARDIOLOGY [place] | [address] | block (Primary Dx); | | | | [address] | [place] | Paroxysmal A-fib | | | | [address] | [place] [address] | ([facility]); Mild | | | | [place], [place] | [phone] | hyperlipidemia; | | | | [address] | | Benign essential | | | | [phone] | | HTN; Poorly | | | | | | controlled type 2 | | | | | | diabetes mellitus | | | | | | ([facility]); Syncope, | | | | [...] | | | | type ([facility]); Rapid | | | | [...] have referred you to Dr. 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 [...] also resol shelly with weight loss Her [id number] VASC score is 4 (stroke, HTN, gender) [...] in [place], and different sleep provider in [facility] when lived over there. She previously [...] PCP, or get a referral to an customer care voice consultant to get her blood sugars better controlled, [...] thirst or hunger. Psychiatric/Behavioral: Bipolar/Schizophrenia. Tx'd by [employer] Vaccines: Current on flu vaccine: 2019 Current on pneumonia vaccine:PPSV 23 05/29/2013 Habits/Social : Denies history of smoking. Denies EtOH use. Denies recreational or illici t drug use. Exercises sporadically. Lives in [place] . Outpatient Medications Prior to Visit Medication [...] chest discomfort, [facility]. Resting EKG normal sinus rhythm, arrhythmias ventricular [...] bundle bran ch block Rate 74 bpm, CO 204 ms, QRS 138 ms, QTC 488 [...] bundle branch block. Ra te 105 bpm, CO 184 ms, QRS 144 ms, QTC 489 ms, tracing personally reviewed by me, and compar ed to EKG performed in December , rate is less well-controlled LABS Labs: 12/26/2018: ( [facility])CMP: Sodium 139, potassium 4.2, chloride 99, BUN 10, creatinine 0. 7, BNP 28. CBC: WBC 7.8, hemoglobin 14.3, hematocrit 42.7, platelets 214 Labs: 09/28/2019:( [facility]) CBC: WBC 7.8, hemoglobin 14.9, hematocrit 43.8, platelets 221. C MP: Sodium 132, potassium 4.2, chloride 95, AST 76, ALT 76, alk phos 134 Labs: 10/11/2019:( [facility]) CBC: WBC 6.7, RBC 4.97, hemoglobin 15.2, hematocrit 44.7, platel ets 200. CMP: Glucose 385, BUN 7, creatinine 0.62, GFR 97, sodium 131, potassium 4.1, chlor kelby 95, albumin 4.3, total bilirubin 0.6, AST 75, ALT 73, alk phos 144. Thyroid: TSH 4.27 Labs: 10/12/2020:( [facility]) CBC: WBC 7, RBC 4.93, hemoglobin 14.7, hematocrit 44.1, platele ts 186 normal UA CMP: Glucose 381, BUN 6, creatinine 0.63, GFR 95, sodium 133, potassium 3.8 , chloride 97, albumin 4.3, total bili 0.6, AST 62, ALT 75, alk phos 145 thyroid: TSH 3.07 Labs: 10/20/2019:( [facility]) CBC: WBC 7.1, RBC 4.93, hemoglobin 15.1, hematocrit 45.2, platel ets 204. CMP: Glucose 540, BUN 8, creatinine 0.81, GFR 71, sodium 131, potassium 4.1, chlor kelby 95, albumin 4.2, total bili 0.5, AST 54, ALT 63, alk phos 123, negative screen for all d rugs except tricyclics. Thyroid: TSH 3.39. Labs: 04/20/2020: ([facility]). CMP: Sodium 130, potassium 4.1, [...] admission and overnight teleme try stay at [facility] for syncopal episode with extremely elevated glucose levels of 404, with hemoglobin A1c of 15.2. She has problems as detailed below. As discussed in HPI, she did not have any arrhythmias when monitored with telemetry overrust, and her EKG performed the ER showed [...] report. 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
--- OUTSIDE RECORDS SUMMARY | ~2020-05-03 | XMS | Encounter Summary ---
Demographics + + + | Address | [address] | | | [place] [address] | + + + | Home Phone [...] [place] | | | | | [address] | | + + + + + Care Team Providers + +------+ + | Care Assisted Living Associate Name | Role | Phone | [...] + + | 10/22/ | Telephone | [facility] | Susu Peralta, | Other | | 2019 | | CARDIOLOGY [place] Nath RN | | | | | [address] | | | | | | [place], [place] | | | | | | [address] | | | | | | [phone] | | | +--------+ + + + [...] | | | | | [place] [address] | | | | | | [phone] | | | | | | | | +--------+ + + + + | 06/26/ | Office | Cardiology | Dora De La Torre | | | 2019 | Visit | | [address] | | | | | | [address] | | | | | | [place] [address] | | | | | | [phone] | | | | | | | | +--------+ + + + + documented as of this encounter Visit Diagnoses Not on filedocumented in this encounter"
--- OUTSIDE RECORDS SUMMARY | ~2020-05-03 | XMS | Encounter Summary ---
Demographics + + + | Address | [address] | | | [place] [address] | + + + | Home Phone [...] [place] | | | | | [address] | | + + + + + Care Team Providers + +------+ + | Care Healthcare Administrative Assistant Name | Role | Phone [...] + | 05/02/ | Telephone | [facility] | Frandy Teresa, | Other | | 2013 | | NEUROSURGERY [address] | DO [address] | | | | | [address] | [address] [place], [place] | | | | | [place], [place] | [id number] | | | | | [address] | | | | | | [phone] | | | +--------+ + + + [...] | | | | | [place] [address] | | | | | | [phone] | | | | | | | | +--------+ + + + + | 06/26/ | Office | Cardiology | Dora De La Torre | | | 2019 | Visit | | [address] | | | | | | [address] | | | | | | [place] [address] | | | | | | [phone] | | | | | | | | +--------+ + + + + documented as of this encounter Visit Diagnoses Not on filedocumented in this encounter"
--- OUTSIDE RECORDS SUMMARY | ~2020-05-03 | XMS | Encounter Summary ---
Demographics + + + | Address | [address] | | | [place] [address] | + + + | Home Phone [...] [place] | | | | | [address] | | + + + + + [...] | | | spondylolist | | [address] | | | | | hesis | | [place], | | | | | Spinal | | [place] [address] | | | | | stenosis, | | Phone: | | | | | lumbar | | [phone] | | | | | region, | | Fax: | | | | | without | | [phone] | | | | | neurogenic | [...] | | | | | [address] | [address] [place] | | | | | [place] | [phone] | | | | | [address] | | | | | | [phone] | | | +--------+ + + + [...] Easy mask AW. DL times one with [facility] 3 easy view | | | 2 | Intubation | | | | 2 | | | | | 6 | | | +----+---+ + + | | 1 | AN Bite | | | | 2 | Block | | | | 2 | | | | | 7 | | | +----+---+ + + | | 1 | [place] | | | | 2 | 43-degrees | | | | 3 | | | | | 1 | | | +----+---+ + + | | 1 | [place] off | | | | 4 | [...] EVALUATION Cindy Arndt 58 y.o. female 1955 [id number] Procedure: Procedure(s):MIS L5-S1 TRANSFORAMINAL LUMBAR INTERBODY FUSION [...] by Zen Mccord MD 07/02/2014 14:55 [facility] nesthesia Preproc edure Evaluation - Zen Mccord MD - 07/02/2014 8:36 AM PDTFormatting of this note m ight be different from the original. ANESTHESIA PREANESTHESIA EVALUATION Cindy Arndt 58 y.o. female 1955 [id number] Scheduled procedure LAMINECTOMY PLIF/TLIF INSTRUMENTATION [184] - MIS L5-S1 TRANSFORAMINAL LUMBAR INTERBODY FUSION Medical history, anesthesia, medications, allergy histories reviewed. ECG reviewed. Labs reviewed. ROS / Med History Ane (+) PONV. NPO status verified. CV (+) hypertension.(-) CAD, past NE, CHF, congenital heart disease, pulmonary hypertension, p [...] [address] | | | | | | [place] [address] | | | | | | [phone] | | | | | | | | +--------+ + + + + | 06/26/ | Office | Cardiology | Dora De La Torre | | | 2019 | Visit | | [address] | | | | | | [address] | | | | | | [place] [address] | | | | | | [phone] | | | | | | | [...]
--- OUTSIDE RECORDS SUMMARY | ~2020-05-03 | XMS | Encounter Summary ---
Demographics + + + | Address | [address] | | | [place] [address] | + + + | Home Phone [...] [place], [place] | | | | | [address] | | + + + + + Care Team Providers + +------+ + | Care Diesel Mechanic Construction Name | Role | Phone | + +------+ + PCP | Unavailable | + +------+ + Encounter Details +--------+ + + + + | Date | Type | Department | Care Team | Description | +--------+ + + + + | 02/02/ | Hospital | [facility] | | | | 1997 - | Encounter | MED CTR GENERIC PSY | | | | | | CONV DEPT [address] | | | | 02/05/ | | [place], | | | | 1997 | | [place] [address] | | | | | | [phone] | | | +--------+ + + + [...] [address] | | | | | | [place] [address] | | | | | | [phone] | | | | | | | | +--------+ + + + + | 06/26/ | Office | Cardiology | Dora De La Torre | | | 2019 | Visit | | [address] | | | | | | [address] | | | | | | [place] [address] | | | | | | [phone] | | | | | | | | +--------+ + + + + documented as of this encounter Visit Diagnoses Not on filedocumented in this encounter"
--- OUTSIDE RECORDS SUMMARY | ~2020-05-03 | XMS | Encounter Summary ---
Demographics + + + | Address | [address] | | | [place] [address] | + + + | Home Phone [...] [place] | | | | | [address] | | + + + + + Care Team Providers + +------+ + | Care Stamping Bench Die Maker Name | Role | Phone | + +------+ + | Natalee Andersen NP | PCP | | + +------+ + Encounter Details +--------+ + + + + | Date | Type | Department | Care Team | Description | +--------+ + + + + | 06/25/ | Hospital | [facility] | Frandy Teresa, | Diabetes mellitus | | 2014 | Encounter | MED CTR OR INTRA OP | DO [address] | (HCC) (Primary Dx) | | | | [address] | [address] [place], [place] | | | | | [place], [place] | [address] | | | | | [address] | | | | | | [phone] | | | +--------+ + + + [...] + + + +---------+ + + | [place]-3 Fatty | Take 1,000 mg by | [...] this en counter H&P Notes CHAPITO ABREU [facility] - 06/21/2014 12:00 AM PDT [...] - 06/26/2014 12:00 AM PDT NBASE SCAN [facility] - 06/12/2014 12:00 AM PDTElectronically signed by Mariah Schulte at 06/12 7:30 AM PDTONBASE SCAN [facility] - 06/11/2014 12:00 AM PDT documented in this encounter Miscellaneous Notes Miscellaneous - ONBASE SCAN [facility] - 06/26/2014 12:00 AM PDT [...] stenosis, lumbar region, without neurogenic claudication ). Knife Finisher visit is in response to an electronic spiritual care consult request. Patient wa s resting comfortably in bed; she was attended by her mom and dad - both sate nearby and see med very attentive and supportive. Cindy is Jew, attends [employer], and is strong in her rangel. She is excited about taking care of her back problem and fe els very secure in Dr. Teresa's care. She welcomed prayer, and expressed appreciation [facility]. Follow up with regular visits, emotional and spiritual support. iscellaneo us - ONBASE SCAN [facility] - 06/25/2014 12:00 AM PDTElectronically [...] | | | | | | [place] [address] | | | | | | [phone] | | | | | | | | +--------+ + + + + | 06/26/ | Office | Cardiology | Dora De La Torre | | | 2019 | Visit | | [address] | | | | | | [address] | | | | | | [place] [address] | | | | | | [phone] | | | | | | | [...] ECG Report | | | Name: Cindy Anrdt Age: 58 y.o. Gender: female 06/25/14 | [...] | mL/min/1.73m2 | DORA | | | PUERTO RICAN | RATE,ESTIMATED | | MEDICAL | | | | mL/min/1.62v4Pqzr than | | CENTER - | | [...] + | [facility] | [address] | [place] | [phone] | | [facility] | | [address] | | | - LABORATORY | | | | + + + + + | [facility] | [address] | [place] | | | [facility] | | [id number] | | | - LABORATORY [...] | | | | | | [facility] | | | | | | MEDICAL [...] + | [facility] | [address] | [place], [place] | [phone] | | [facility] | | [address] | | | - LABORATORY | | | | + + + + + | [facility] | [address] | [place], [place] | | | [facility] | | [address] | | | - LABORATORY [...] + | [facility] | [address] | [place] | [phone] | | [facility] | | [address] | | | - LABORATORY | | | | + + + + + | [facility] | [address] | [place] | | | [facility] | | [address], [facility] | | | - LABORATORY [...] St | [place] | | | [facility] | | [address] | | | - BLOOD BANK | [...] + | [facility] | [address] | [place], [place] | [phone] | | [facility] | | [address] | | | - LABORATORY | | | | + + + + + | [facility] | [address] | [place], [place] | | | [facility] | | [address], [facility] | | | - LABORATORY [...]
--- OUTSIDE RECORDS SUMMARY | ~2020-05-03 | XMS | Encounter Summary ---
Demographics + + + | Address | [address] | | | [place] [address] | + + + | Home Phone [...] [place], [place] | | | | | [address] | | + + + + + Care Team Providers + +------+ + | Care Auto Air Conditioning Mechanic Name | Role | Phone | + +------+ + PCP | Unavailable | + +------+ + Encounter Details +--------+ + + + + | Date | Type | Department | Care Team | Description | +--------+ + + + + | 02/28/ | Hospital | [facility] | Deon Gonzales | | | 2012 | Encounter | MED CTR SLEEP | MD Laureano [address] | | | | | [place] [address] | [address] [facility] | | | | | [place], [place] | [place] [address] | | | | | [address] | [phone] | | | | | [phone] | | | +--------+ + + + [...] - 02/29/2012 2:36 PM PDTDATE: 02/29/2012 cc: [facility] Deon Gonzales Jr., MD, [facility] POSITIVE PRESSURE TITRATION STUDY CLINICAL INFORMATION: This [...] the patient scored 18 points on the [place] Sleepiness Scale, which endorses a severe degree [...] advised. Deon Gonzales Jr., MD, FAASM Diplomate [place] Board of Internal Medicine Diplomate in Sleep Medicine Math Specialist, [facility] Clinical Hvac Maintenance Technician Katelin joy [facility], [facility] JOB #: [id number] EXT JOB #:[id number] EDITED: 03/03/2012 07:26 <Electronically Signed by Deon [...] | | | | | | [place] [address] | | | | | | [phone] | | | | | | | | +--------+ + + + + | 06/26/ | Office | Cardiology | StefanielarryDora | | | 2019 | Visit | | [address] | | | | | | [address] | | | | | | [place] [address] | | | | | | [phone] | | | | | | | | +--------+ + + + + documented as of this encounter Visit Diagnoses Not on filedocumented in this encounter"
--- OUTSIDE RECORDS SUMMARY | ~2020-05-03 | XMS | Encounter Summary ---
Demographics + + + | Address | [address] | | | [place] [address] | + + + | Home Phone [...] [place] | | | | | [address] | | + + + + + Care Team Providers + +------+ + | Care Ammonia Operator Name | Role | Phone | [...] + + | 08/14/ | Telephone | [facility] | Ashley Chávez | Other (Patient was | | 2018 | | CARDIOLOGY [place]ad, Glass Bulb Silverer | anxious about urgent | | | | [address] | | reports. ) | | | | [place] | | | | | | [address] | | | | | | [phone] | | | +--------+ + + + [...] Miscellaneous Notes Telephone Encounter - Ashley Chávez, Glass Bulb Silverer - 08/14/2019 9:16 AM Seferino foster called [...] for the time being. Patient stated understanding. JDW:ENGINE DISPATCHER-AAMA. [facility] umented in this encounter [...] | | | | | [place] [address] | | | | | | [phone] | | | | | | | | +--------+ + + + + | 06/26/ | Office | Cardiology | Dora De La Torre | | | 2020 | Visit | | [address] | | | | | | [address] | | | | | | [place] [address] | | | | | | [phone] | | | | | | | | +--------+ + + + + documented as of this encounter Visit Diagnoses Not on filedocumented in this encounter"
--- OUTSIDE RECORDS SUMMARY | ~2020-05-03 | XMS | Encounter Summary ---
Demographics + + + | Address | [address] | | | [place] [address] | + + + | Home Phone [...] [place] | | | | | [address] | | + + + + + Care Team Providers + +------+ + | Care Recruitment Intern Name | Role | Phone | [...] + + | 02/26/ | Emergency | [facility] | [place], | CVA (cerebral | | 2015 | | [facility] EM[facility] | Davey Simons MD [address] | vascular accident) | | | | CENTER [address] | [address] [facility] | ([facility]) (Primary Dx) | | | | [place], [place] | [place] [address] | | | | | [address] | [phone] | | | | | [phone] | | | +--------+ + + + [...] + + + +---------+ + + | [place]-3 Fatty | Take 1,000 mg by | [...] might be differe nt from the original. [facility] Emergency Department Encounter Note [address] [place] [address] PCP:Natalee Andersen [phone] CHIEF COMPLAINT: Chief Complaint Patient presents with Facial Droop ED Room: ED07/ED07 HPI Cindy Arndt is a 59 y.o. female who presents to the Emergency Department accompanied by a friend from [place] for evaluation. The patient recently had symptoms that were diagno sed as stroke or TIA. The symptoms were of a weakness and numbness in her right arm and leg . She was hospitalized for 4 days in [place] for this. She was discharged and subsequent ly has had 2 or 3 emergency department visits in [place] for symptoms diagnosed as TIAs. These have been recurrent and worsening right arm and leg weakness and then today with some right facial drooping and drooling. She is on Aggrenox. She had a full workup in [place] including brain CT, brain MRI, and carotid [...] Laterality: N/A; Surgeon: Frandy castellanos DO; Location: [facility] MAIN OR CURRENT MEDICATIONS Discharge Medication [...] or Severe Contraindications. Consult references such as [employer] for furthe r information. Magnesium 250 MG [...] or Severe Contraindications. Consult references such as [employer] for further information. Multiple Vitamins-Minerals (CENTRUM SILVER PO) Take 1 tablet by mouth Daily.Historical Med OLANZapine zydis (ZYPREXA ZYDIS) 15 MG disintegrating tablet Take 15 mg by mouth nightly. [place]-3 Fatty Acids (FISH OIL CONCENTRATE) 1000 MG [...] review all of her imaging studies from [facility] ED COURSE & MEDICAL DECISION MAKING Pertinent Labs & Imaging studies were reviewed along with EMS notes and care home record s if applicable. (See chart for details) Medications and Allergy list reviewed. Nurses note and old records were reviewed The patient was seen and examined, I was finally able to get her records from [facility] which showed a normal MRI and less [...] accident) (HCC) Follow-up Information Follow up with [facility]. Specialty: Emergency Medicine Contact information: [address] [address] Follow up with [facility]. Specialty: Emergency Medicine Contact information: [address] [address] Follow up with Natalee Andersen NP. Specialty: Family Nurse Practitioner Contact information: [address] [place] [address] Schedule an appointment as soon as possible for a visit with Baudilio Newman MD. Specialty: Neurology Contact information: [address] [facility] [facility] [id number] Discharge Medication List as of 02/26/2015 15:21 Davey Varela MD 02/26/15 1732 do cumented in this encounter Miscellaneous Notes ED Triage Notes - Yesenia Monroy RN - 02/26/2015 1:11 PM PDTC/O right sided facial mahendra op and numbness to right arm and leg onset yesterday at approximately 1800. Pt was seen in [facility] by her primary care physician [...] [address] | | | | | | [place] [address] | | | | | | [phone] | | | | | | | | +--------+ + + + + | 06/26/ | Office | Cardiology | Dora De La Torre | | | 2019 | Visit | | [address] | | | | | | [address] | | | | | | [place] [address] | | | | | | [phone] | | | | | | | [...] | | MEDICAL | | | | mL/min/1.91i1Oxea than | | CENTER - | | [...] [address] | [place] | [phone] | | [facility] | | [address] | | | - LABORATORY | | [...] | Eosinophils | | K/uL | [facility] | | | | [...] [address] | [place] | [phone] | | [facility] | | [address] | | | - LABORATORY | | [...] ---- | | | 02/26/2015 13:10 [facility] | | | Emergency -numbness/facial droop 02/26/2015 08:15 [facility] | | | [facility] Urgent Care 02/19/2015 | | | 10:15 [facility] | | | -Diabetes mellitus [...] as uncontrolled 02/17/2015 | | | 08:22 [facility] Emergency | | | -Long-term (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 [...] and uterus 02/14/2015 | | | 09:56 [facility] Emergency | | | -Disturbance of skin [...] residual deficits | | | 02/01/2015 21:38 [facility] | | | Emergency 01/22/2015 14:00 [facility] | | | Urgent Care -Myalgia and [...] intervertebral disc | | | 01/16/2015 12:15 [facility] | | | Urgent Care -Unspecified acquired [...] other | | | medications 01/07/2015 11:45 [facility] | | | Urgent Care -Unspecified acquired [...] acquired hypothyroidism 12/30/2014 | | | 17:54 [facility] Emergency | | | -Obstructive sleep apnea [...] essential hypertension | | | 12/30/2014 14:30 [facility] | | | Urgent Care -Cramp of [...] | | -Cramp of limb 11/29/2014 16:15 [facility] | | | Urgent Care -Esophageal reflux [...] ------ | | | --------- [address] | | | [facility] [address] [facility] [address] | | | [facility] 7 0 Total | | | Note: Visits indicate total known visits. Medicaid [place] Dx are the | | | number of primary diagnoses on the [facility]'s non-emergent dx list. | | | [...]
--- OUTSIDE RECORDS SUMMARY | ~2020-05-03 | XMS | Encounter Summary ---
Demographics + + + | Address | [address] | | | [place] [address] | + + + | Home Phone [...] [place] | | | | | [address] | | + + + + + Care Team Providers + +------+ + | Care Digital Asset Coordinator Name | Role | Phone | [...] | Services | ogy | Epigastric | [facility], | Tyrese Shelley MD | | | Required | | abdominal | [place], | [address], | | | | | pain GERD | FLOOR SPACE ALLOCATOR [address] | [address] | | | | | (gastroesoph | [address] | [place], | | | | | ageal reflux | [address] | [place] [address] | | | | | disease) | [place], | Phone: | | | | | Fatty liver | [place] [address] | [phone] | | | | | DM | Phone: | Fax: | | | | | (diabetes | [phone] | [phone] | | | | | mellitus) | Fax: | | | | | | (HCC) | [phone] | | +--------+ + + + + + Reason for Visit + + + | Reason | Comments | + + + | Gastroesophageal | epigastric pain | | Reflux | | + + + Encounter Details +--------+---------+ + + + | Date | Type | Department | Care Team | Description | +--------+---------+ + + + | 03/06/ | Office | [facility] | [facility], | Epigastric abdominal | | 2012 | Visit | GASTROENTEROLOGY | FORTUNATO Thomas [address] | pain (Primary Dx); | | | | [address] | [address] | GERD | | | | [address] [place], [place] | [place] | (gastroesophageal | | | | [address] | [address] | reflux disease); | | | | [phone] | | Fatty liver; DM | | [...] years ago by Dr. Saravanan Tsai, in [facility]. Colonoscopy was done 05/[address] Hamlin in [facility]. Allergies Allergen Reactions Demerol Duloxetine [...] encounter Miscellaneous Notes Miscellaneous - ON[facility] SCAN [facility] - 03/06/2013 12:00 AM PDT iscellaneous - ONBASE SCAN [facility] - 03/06/2013 12:00 AM PDTEle ctronically [...] [address]U | | | | | | [place] [address] | | | | | | [phone] | | | | | | | | +--------+ + + + + | 06/26/ | Office | Cardiology | Dora De La Torre | | | 2019 | Visit | | [address] | | | | | | [address] | | | | | | [place] [address] | | | | | | [phone] | | | | | | | [...]
--- OUTSIDE RECORDS SUMMARY | ~2020-05-03 | XMS | Encounter Summary ---
Demographics + + + | Address | [address] | | | [place] [address] | + + + | Home Phone [...] [place] | | | | | [address] | | + + + + + [...] | SLEEP DISORDER [address] | [address] | | | | | [address] [place] | [place] | | | | | [place] [address] | [address] | | | | | [phone] | | | +--------+ + + + [...] PDTPat was last seen in [facility] on [facility]/30/[facility]. He did not cancel [...] PA-C eleph one Encounter - Gail Cadet, Senior Systems Developer - 07/15/2016 8:37 AM PDTCalled to resched ule patient's no show appointment unable to contact all numbers are disconnected. Electronic ally signed by Gail Cadet Senior Systems Developer at 07/15/2016 8:37 AM PDTdocumented in this [...] [address] | | | | | | [place] [address] | | | | | | [phone] | | | | | | | | +--------+ + + + + | 06/26/ | Office | Cardiology | Dora De La Torre | | | 2019 | Visit | | [address] | | | | | | [address] | | | | | | [place] [address] | | | | | | [phone] | | | | | | | | +--------+ + + + + documented as of this encounter Visit Diagnoses Not on filedocumented in this encounter"
--- OUTSIDE RECORDS SUMMARY | ~2020-05-03 | XMS | Encounter Summary ---
Demographics + + + | Address | [address] | | | [place] [address] | + + + | Home Phone [...] [place] | | | | | [address] | | + + + + + Care Team Providers + +------+ + | Care Shellfish Sorter Name | Role | Phone | [...] | | | | | | [place] [address] | | | | | | [phone] | | | | | | | [...] in | | | | | | [place] with a | | | | | [...] [facility] | | | | | | [facility] | | | | | | Laboratory, [place], | | | | | | [place], delivered | | | | | | [...] by | | | | | | axvtjtmaEux-Hfm-X: | | | | | | Increased [...] istryMHC-1: | | | | | | PfipbhinQR06 stain | | | | | | [...] | + + + + + | [facility] | [address] | [place] [address] | | | PATHOLOGY | [place] | | | + + + + + documented in this encounter Visit Diagnoses Not on filedocumented in this encounter
--- OUTSIDE RECORDS SUMMARY | ~2020-05-03 | XMS | Encounter Summary ---
Demographics + + + | Address | [address] | | | [place] [address] | + + + | Home Phone [...] [place], [place] | | | | | [address] | | + + + + + Care Team Providers + +------+ + | Care Competitive Athlete Name | Role | Phone | + +------+ + PCP | Unavailable | + +------+ + Encounter Details +--------+ + + + + | Date | Type | Department | Care Team | Description | +--------+ + + + + | 12/24/ | Hospital | [facility] | | | | 1998 | Encounter | MED CTR XRAY [address] | | | | | | [address] | | | | | | [place] [address] | | | | | | [phone] | | | +--------+ + + + [...] | | | | | [place] [address] | | | | | | [phone] | | | | | | | | +--------+ + + + + | 06/26/ | Office | Cardiology | Dora De La Torre | | | 2019 | Visit | | [address] | | | | | | [address] | | | | | | [place] [address] | | | | | | [phone] | | | | | | | | +--------+ + + + + documented as of this encounter Visit Diagnoses Not on filedocumented in this encounter"
--- OUTSIDE RECORDS SUMMARY | ~2020-05-03 | XMS | Encounter Summary ---
Demographics + + + | Address | [address] | | | [place] [address] | + + + | Home Phone [...] [place] | | | | | [address] | | + + + + + Care Team Providers + +------+ + | Care Packaging Sales Consultant Name | Role | Phone | + +------+ + | Basim Bolanos MD | PCP | | + +------+ + Encounter Details +--------+ + + + + | Date | Type | Department | Care Team | Description | +--------+ + + + + | 03/30/ | Hospital | [facility] | Tyrese Neely MD | | | 2012 | Encounter | MED CTR MP INTRA OP | [address], [address] | | | | | [address] | [address] [place], [place] | | | | | [place], [place] | [address] | | | | | [address] | | | | | | [phone] | | | +--------+ + + + [...] + + + +---------+ + + | [place]-3 Fatty | Take 1,000 mg by | [...] Neely MD - 03/30/2013 12:10 [place] [address] Patient Name: CINDY ARNDT Provider: Tyrese Neely MD Unit #: [id number] Location: [facility] : 1955 Patient Name: Cindy Arndt Gender: F Procedure Date: 03/30/2013 12:10 PM Date of : 1955 Age: 57 Admit Type: Outpatient Room: Endo Room 1 Note Status: Finalized Attending MD: Tyrese Neely MD Procedure: Upper GI endoscopy Indications: Epigastric abdominal pain Providers: Tyrese Neely MD, Vanesa Anne RN, Yesenia Downing, Instrument Maker And Repairer, Guillermo Ortiz MD (Anesthesia Staff) Referring MD: [...] physician, the nurse, the anesthesiologist and the data technician. The procedure was verified in the [...] [address] | | | | | | [place] [address] | | | | | | [phone] | | | | | | | | +--------+ + + + + | 06/26/ | Office | Cardiology | Isacc De La Torre | | | 2019 | Visit | | Vanessa, FERRY BOAT CAPTAIN [address] | | | | | | [address] | | | | | | [place] [address] | | | | | | [phone] | | | | | | | [...] + | [facility] | [address] | [place], [place] | [phone] | | [facility] | | [address] | | | - LABORATORY | | | | + + + + + | [facility] | [address] | [place], [place] | | | [facility] | | [address] | | [...] + | [facility] | [address] | [place] | [phone] | | [facility] | | [address] | | | - LABORATORY | | | | + + + + + | [facility] | [address] | [place], [place] | | | [facility] | | [id number] [place] [address] | | | - LABORATORY | | | | + + + + + documented in this encounter Visit Diagnoses Not on filedocumented in this encounter"
--- OUTSIDE RECORDS SUMMARY | ~2020-05-03 | XMS | Encounter Summary ---
Demographics + + + | Address | [address] | | | [place] [address] | + + + | Home Phone [...] [place] | | | | | [address] | | + + + + + Care Team Providers + +------+ + | Care Prefitter Doors Name | Role | Phone | + [...] + + | 02/06/ | Telephone | [facility] | Roxannmiguel ángelDora | Patient Concerns | | 2020 | | CARDIOLOGY [place] | [address] | | | | | [address] | [address] | | | | | [address] | [place] [address] | | | | | [place] | [phone] | | | | | [address] | | | | | | [phone] | | | +--------+ + + + [...] [address]U | | | | | | [place] [address] | | | | | | [phone] | | | | | | | | +--------+ + + + + | 06/26/ | Office | Cardiology | Dora De La Torre | | | 2019 | Visit | | [address] | | | | | | [address] | | | | | | [place] [address] | | | | | | [phone] | | | | | | | | +--------+ + + + + documented as of this encounter Visit Diagnoses Not on filedocumented in this encounter"
--- OUTSIDE RECORDS SUMMARY | ~2020-05-03 | XMS | Encounter Summary ---
Demographics + + + | Address | [address] | | | [place] [address] | + + + | Home Phone [...] [place] | | | | | [address] | | + + + + + Care Team Providers + +------+ + | Care Propeller Layout Worker Name | Role | Phone | [...] + | 09/10/ | Documentati | [facility] | Katharine Moncada, | Other (urgent | | 2019 | on | CARDIOLOGY [place] | Technologist | report) | | | | [address] | | | | | | [place] | | | | | | [address] | | | | | | [phone] | | | +--------+ + + + [...] | | | | | [place] [address] | | | | | | [phone] | | | | | | | | +--------+ + + + + | 06/26/ | Office | Cardiology | Dora De La Torre | | | 2020 | Visit | | [address] | | | | | | [address] | | | | | | [place] [address] | | | | | | [phone] | | | | | | | | +--------+ + + + + documented as of this encounter Visit Diagnoses Not on filedocumented in this encounter"
--- OUTSIDE RECORDS SUMMARY | ~2020-05-03 | XMS | Encounter Summary ---
Demographics + + + | Address | [address] | | | [place] [address] | + + + | Home Phone [...] [place] | | | | | [address] | | + + + + + Care Team Providers + +------+ + | Care Ortho Assistant Name | Role | Phone | [...] | | | | | | [place] [address] | | | | | | [phone] | | | | | | | [...] in | | | | | | [place] with a | | | | | [...] [facility] | | | | | | [facility] | | | | | | Laboratory, [place], | | | | | | [place] [...] by | | | | | | uxiwnipyGul-Hzi-L: | | | | | | Increased [...] istryMHC-1: | | | | | | GcoazvofGZ69 stain | | | | | | [...] + + + + | [facility] | [address] | [place] [address] | | | PATHOLOGY | [place] | | | + + + + + documented in this encounter Visit Diagnoses Not on filedocumented in this encounter
--- OUTSIDE RECORDS SUMMARY | ~2020-05-03 | XMS | Encounter Summary ---
Demographics + + + | Address | [address] | | | [place] [address] | + + + | Home Phone [...] [place] | | | | | [address] | | + + + + + Care Team Providers + +------+ + | Care Parts Counterperson Name | Role | Phone | + [...] + | 07/01/ | Telephone | [facility] | Frandy Teresa, | Other (Surgery ) | | 2013 | | NEUROSURGERY [address] | DO [address] | | | | | [address] | [address] [place], [place] | | | | | [place], [place] | [id number] | | | | | [address] | | | | | | [phone] | | | +--------+ + + + [...] [address]U | | | | | | [place] [address] | | | | | | [phone] | | | | | | | | +--------+ + + + + | 06/26/ | Office | Cardiology | Dora De La Torre | | | 2019 | Visit | | [address] | | | | | | [address] | | | | | | [place] [address] | | | | | | [phone] | | | | | | | | +--------+ + + + + documented as of this encounter Visit Diagnoses Not on filedocumented in this encounter"
--- OUTSIDE RECORDS SUMMARY | ~2020-05-03 | XMS | Encounter Summary ---
Demographics + + + | Address | [address] | | | [place] [address] | + + + | Home Phone [...] [place] | | | | | [address] | | + + + + + Care Team Providers + +------+ + | Care Fry Cook Name | Role | Phone | [...] [place] | | | | | | [address] | | | | | | [phone] | | | +--------+ + + + [...] | | | | | [place] [address] | | | | | | [phone] | | | | | | | | +--------+ + + + + | 06/26/ | Office | Cardiology | Dora De La Torre | | | 2020 | Visit | | [address] | | | | | | [address] | | | | | | [place] [address] | | | | | | [phone] | | | | | | | | +--------+ + + + + documented as of this encounter Visit Diagnoses Not on filedocumented in this encounter"
--- OUTSIDE RECORDS SUMMARY | ~2020-05-03 | XMS | Encounter Summary ---
Demographics + + + | Address | [address] | | | [place] [address] | + + + | Home Phone [...] [place] | | | | | [address] | | + + + + + Care Team Providers + +------+ + | Care Design Coordinator Name | Role | Phone | [...] | | | | [address] [facility] [address] | [place] [address] | | | | | [place] | [phone] | | | | | [address] | | | | | | [phone] | | | +--------+ + + + [...] Percocet prescription and faxed it to them ([facility]) this morning like I told them I would. Thank you for doing that, but it should not have been necessary. Telephone Encounter - Lincoln Cheema MD - 07/06/2014 8:59 PM PDTCalled regarding increased p ain. She was taking percocet. [facility]. I talked to the [...] C[address]U | | | | | | [place] [address] | | | | | | [phone] | | | | | | | | +--------+ + + + + | 06/26/ | Office | Cardiology | Dora De La Torre | | | 2019 | Visit | | [address] | | | | | | [address] | | | | | | [place] [address] | | | | | | [phone] | | | | | | | | +--------+ + + + + documented as of this encounter Visit Diagnoses Not on filedocumented in this encounter"
--- OUTSIDE RECORDS SUMMARY | ~2020-05-03 | XMS | Encounter Summary ---
Demographics + + + | Address | [address] | | | [place] [address] | + + + | Home Phone [...] [place] | | | | | [address] | | + + + + + Care Team Providers + +------+ + | Care Meat Cutter Apprentice Name | Role | Phone | [...] + | 02/27/ | Telephone | [facility] | Katharine Cardona PA-C | Appointment (New | | 2014 | | MEDICINE [address] | Patient) | | | | [address], | [place] [address] | | | | | [place] [address] | [phone] | | | | | [phone] | | | +--------+ + + + [...] patients. Those patients are re ferred to [facility]. Cindy stated that would be fine with her. She stated she is 7 months post-back surgery per Dr. Teresa and only uses the hydrocodone and oxycodone occ asionally. She said she is trying to get off the oxycodone completely. Cindy said she saw Dr. Newman this morning to address her myositis issues. [facility] Appointment scheduled for 03-06-15 with Katharine [...] | | | | | [place] [address] | | | | | | [phone] | | | | | | | | +--------+ + + + + | 06/26/ | Office | Cardiology | Dora De La Torre | | | 2019 | Visit | | [address] | | | | | | [address] | | | | | | [place] [address] | | | | | | [phone] | | | | | | | | +--------+ + + + + documented as of this encounter Visit Diagnoses Not on filedocumented in this encounter"
--- OUTSIDE RECORDS SUMMARY | ~2020-05-03 | XMS | Encounter Summary ---
Demographics + + + | Address | [address] | | | [place] [address] | + + + | Home Phone [...] [place], [place] | | | | | [address] | | + + + + + Care Team Providers + +------+ + | Care Accounting Practice Manager Name | Role | Phone | + +------+ + PCP | Unavailable | + +------+ + Encounter Details +--------+ + + + + | Date | Type | Department | Care Team | Description | +--------+ + + + + | 01/06/ | Hospital | [facility] | | | | 1992 | Encounter | MED CTR LABORATORY | | | | | | [address] | | | | | | [place] | | | | | | [address] | | | | | | [phone] | | | +--------+ + + + [...] | | | | | [place] [address] | | | | | | [phone] | | | | | | | | +--------+ + + + + | 06/26/ | Office | Cardiology | Dora De La Torre | | | 2020 | Visit | | [address] | | | | | | [address] | | | | | | [place] [address] | | | | | | [phone] | | | | | | | | +--------+ + + + + documented as of this encounter Visit Diagnoses Not on filedocumented in this encounter"
--- OUTSIDE RECORDS SUMMARY | ~2020-05-03 | XMS | Encounter Summary ---
Demographics + + + | Address | [address] | | | [place] [address] | + + + | Home Phone [...] [place] | | | | | [address] | | + + + + + [...] + + | 07/30/ | Telephone | [facility] | Ashley Chávez | Other (Patient | | 2019 | | CARDIOLOGY [place], Manufacturing Project Manager | mariela ) | | | | [address] | | | | | | [facility] | | | | | | [address] | | | | | | [phone] | | | +--------+ + + + [...] Miscellaneous Notes Telephone Encounter - Ashley Chávez Manufacturing Project Manager - 07/30/2019 1:40 PM Shila norton to patient to advise of Dr. Peterson's notes. Patient stated understanding. BRODY:MANGO. el ephone Encounter - Ashley Chávez, Manufacturing Project Manager - 07/30/2019 1:40 PM PDT----- Mess age [...] Thanks ----- Message ----- From: Ashley Chávez Manufacturing Project Manager Sent: 07/30/2019 11:47 To: Desiree Peterson DO [...] [address] | | | | | | [place] [address] | | | | | | [phone] | | | | | | | | +--------+ + + + + | 06/26/ | Office | Cardiology | Dora De La Torre | | | 2019 | Visit | | CAROLINE Mendez [address] | | | | | | [address] | | | | | | [place] [address] | | | | | | [phone] | | | | | | | | +--------+ + + + + documented as of this encounter Visit Diagnoses Not on filedocumented in this encounter"
--- OUTSIDE RECORDS SUMMARY | ~2020-05-03 | XMS | Encounter Summary ---
Demographics + + + | Address | [address] | | | [place] [address] | + + + | Home Phone [...] [place], [place] | | | | | [address] | | + + + + + Care Team Providers + +------+ + | Care Admin Dir Name | Role | Phone | + +------+ + PCP | Unavailable | + +------+ + Encounter Details +--------+ + + + + | Date | Type | Department | Care Team | Description | +--------+ + + + + | 02/02/ | Hospital | [facility] | | | | 1997 | Encounter | MED CTR EMERGENCY | | | | | | [address]AK[address] | | | | | | [place] | | | | | | [address] | | | | | | [phone] | | | +--------+ + + + [...] | | | | | [place] [address] | | | | | | [phone] | | | | | | | | +--------+ + + + + | 06/26/ | Office | Cardiology | Dora De La Torre | | | 2020 | Visit | | [address]INE Mendez [address] | | | | | | [address] | | | | | | [place] [address] | | | | | | [phone] | | | | | | | | +--------+ + + + + documented as of this encounter Visit Diagnoses Not on filedocumented in this encounter"
--- OUTSIDE RECORDS SUMMARY | ~2020-05-03 | XMS | Encounter Summary ---
Demographics + + + | Address | [address] | | | [place] [address] | + + + | Home Phone [...] [place] | | | | | [address] | | + + + + + Care Team Providers + +------+ + | Care Reimbursement Rep Name | Role | Phone | [...] | Transcriptions | + + | Interface, Deputy Clerk Of Court In - 10/24/2006 3:09 AM PST | | [facility] | | Road [place], [place] [address] [place] | | [facility] HospitalOPERATION RECORDMed Rec No.: [id number] Date: | [...]
--- OUTSIDE RECORDS SUMMARY | ~2020-05-03 | XMS | Encounter Summary ---
Demographics + + + | Address | [address] | | | [place] [address] | + + + | Home Phone [...] [place] | | | | | [address] | | + + + + + Care Team Providers + +------+ + | Care Group Account Director Name | Role | Phone [...] [address] | | | | | [place], [place] | Shaheen Simons | | | | | [address] | [place] [address] | | | | | [phone] | [phone] | | | | | | | [...] [address] | | | | | | [place] [address] | | | | | | [phone] | | | | | | | | +--------+ + + + + | 06/26/ | Office | Cardiology | Dora De La Torre | | | 2019 | Visit | | [address] Mendez [address] | | | | | | [address] | | | | | | [place] [address] | | | | | | [phone] | | | | | | | [...] | | | performed at [facility];[address] [place] [address];[place] [address] CULTURE | | | 50,000 TO 100,000 CFU/ML | | | MIXED GRAM POSITIVE HAIDER NO SUSCEPTIBILITY TO FOLLOW | | | MULTIPLE ORGANISM TYPES PRESENT, | | | SUGGESTIVE OF CONTAMINATION OR COLONIZATION. SUGGEST RECOLLECTION FOR | | | CULTURE. Testing | | | performed at [facility];[address] [place] [address];[place] [address] REPORT | | | STATUS 06/08/2012 FINAL [...]
--- OUTSIDE RECORDS SUMMARY | ~2020-05-03 | XMS | Encounter Summary ---
Demographics + + + | Address | [address] | | | [place] [address] | + + + | Home Phone [...] [place] | | | | | [address] | | + + + + + Care Team Providers + +------+ + | Care Recreation Center Director Name | Role | Phone [...] + | 08/08/ | Telephone | [facility] | Ashley Chávez | Other (Questions | | 2019 | | CARDIOLOGY [place], Street Light Wirer | about coverage. ) | | | | [address] | | | | | | [place] | | | | | | [address] | | | | | | [phone] | | | +--------+ + + + [...] Miscellaneous Notes Telephone Encounter - Ashley Chávez, Street Light Wirer - 08/08/2019 10:58 AM Seferino foster called and wanted to know if her monitor needed to be AUTHORIZED. I asked Danelle and she said that because she had medicare part A and B, it does not need kayode or auth. I told this information to the patient, patient stated understanding. JKASSIE:BLOCK GREASER-AAMA. [facility] umphilipp in this encounter Plan [...] [address] | | | | | | [place] [address] | | | | | | [phone] | | | | | | | | +--------+ + + + + | 06/26/ | Office | Cardiology | Dora De La Torre | | | 2019 | Visit | | [address] Mendez [address] | | | | | | [address] | | | | | | [place] [address] | | | | | | [phone] | | | | | | | | +--------+ + + + + documented as of this encounter Visit Diagnoses Not on filedocumented in this encounter"
--- OUTSIDE RECORDS SUMMARY | ~2020-05-03 | XMS | Encounter Summary ---
Demographics + + + | Address | [address] [facility] [address] | | | [place] [address] | + + + | Home Phone [...] [place] | | | | | [address] | | + + + + + Care Team Providers + +------+ + | Care Coding Coordinator Name | Role | Phone | [...] [id number] | | | | | | [place], [place] | | | | | | [address] | | | | | | [phone] | | | +--------+ + + + [...] [facility] | [address] | [place] [address] | | | PATHOLOGY | [address] [...] Re | | | | | | [id number] | | | | + + + + + + + + | Specimen | + + | | + + + + + + + | Performing | Address | City/State/Zipcode | Phone Number | | Organization | | | | + + + + + | [facility] | [address] | [place] [address] | | | PATHOLOGY | [address] [...] Re | | | | | | [address] | | | | + + + + + + + + | Specimen | + + | | + + + + + + + | Performing | Address | City/State/Zipcode | Phone Number | | Organization | | | | + + + + + | [facility] | [address] | [place] [address] | | | PATHOLOGY | [address] [...] Re | | | | | | [address] | | | | + + + + + + + + | Specimen | + + | | + + + + + + + | Performing | Address | City/State/Zipcode | Phone Number | | Organization | | | | + + + + + | [facility] | [address] | [place] [address] | | | PATHOLOGY | [address] | | | + + + [...] Re | | | | | | [phone] | | | | + + + + + + + + | Specimen | + + | | + + + + + + + | Performing | Address | City/State/Zipcode | Phone Number | | Organization | | | | + + + + + | [facility] | [address] | [place] [address] | | | PATHOLOGY | [address] | | | + + + + + documented in this encounter Visit Diagnoses Not on filedocumented in this encounter"
--- OUTSIDE RECORDS SUMMARY | ~2020-05-03 | XMS | Encounter Summary ---
Demographics + + + | Address | [address] [facility] | | | [place] [address] | + + + | Home Phone [...] [place] | | | | | [address] | | + + + + + Care Team Providers + +------+ + | Care Dado Operator Name | Role | Phone | [...] | | | | | | [facility], [address] | | | | | | [place], [place] | | | | | | [address] | | | | | | [phone] | | | +--------+ + + + [...] as of this encounter Progress Notes Interface, Bottom Scrubber In - 12/11/2006 5:03 AM [facility] DATE: 07/03/97 INFECTIOUS DISEASE [...]
--- OUTSIDE RECORDS SUMMARY | ~2020-05-03 | XMS | Encounter Summary ---
Demographics + + + | Address | [address] | | | [place] [address] | + + + | Home Phone [...] [place] | | | | | [address] | | + + + + + Care Team Providers + +------+ + | Care Screw Machine Repairer Name | Role | Phone | [...] | | | | | | | [address] | | | | | | | Phone: | | | | | | | [phone] | | | | | | | Fax: | | | | | | | [phone] | | +--------+ + + + + + Reason for Visit + + + | Reason | Comments | + + + | Follow-up | 4 Week PO | + + + Encounter Details +--------+---------+ + + + | Date | Type | Department | Care Team | Description | +--------+---------+ + + + | 07/25/ | Office | [facility] | Frandy Teresa, | Lumbar spondylosis | | 2013 | Visit | NEUR[address]URGERY [address] | DO [address] | (Primary Dx); S/P | | | | [address] | [address] [place], [place] | lumbar fusion | | | | [place], [place] | [address] | | | | | [address] | | | | | | [phone] | | | +--------+---------+ + + + [...] m the original. Frandy Teresa DO [address] [facility] [address] [address] [facility] [place] [address] FAX: NEUROSURGERY SURGICAL FOLLOW-UP CHIEF COMPLAINT: Chief [...] Take 15 mg by mouth nightl y. [place]-3 Fatty Acids (FISH OIL CONCENTRATE) 1000 MG [...] [address] | | | | | | [place] [address] | | | | | | [phone] | | | | | | | | +--------+ + + + + | 06/26/ | Office | Cardiology | Dora De La Torre | | | 2020 | Visit | | [address] Mendez [address] | | | | | | [address] | | | | | | [place] [address] | | | | | | [phone] | | | | | | | [...] | | S1.Dictated and Signed by: Wolf aClabrese MD Electronically signed: 09/27/2014 5:11 PM | [...] + | MISCELLANEOUS LAB | | | [phone] | + +---------+ + + | MISCELANIOUS LAB | | | [phone] | + +---------+ + + documented in this encounter Visit Diagnoses + + | Diagnosis | + + | Lumbar spondylosis - Primary Lumbosacral spondylosis without myelopathy | + + | S/P lumbar fusion Arthrodesis status | + + documented in this encounter
--- OUTSIDE RECORDS SUMMARY | ~2020-05-03 | XMS | Encounter Summary ---
Demographics + + + | Address | [address] | | | [place] [address] | + + + | Home Phone [...] [place] | | | | | [address] | | + + + + + [...] [place] | | | | | | [address] | | | | | | [phone] | | | +--------+ + + + [...] | | | | | [place] [address] | | | | | | [phone] | | | | | | | | +--------+ + + + + | 06/26/ | Office | Cardiology | Dora De La Torre | | | 2020 | Visit | | [address] Mendez [address] | | | | | | [address] | | | | | | [place] [address] | | | | | | [phone] | | | | | | | | +--------+ + + + + documented as of this encounter Visit Diagnoses Not on filedocumented in this encounter"
--- OUTSIDE RECORDS SUMMARY | ~2020-05-03 | XMS | Encounter Summary ---
Demographics + + + | Address | [address] [facility] [address] | | | [place] [address] | + + + | Home Phone [...] [place] | | | | | [address] | | + + + + + Care Team Providers + +------+ + | Care Diabetes Solutions Specialist Name | Role | Phone | [...] | | | | | | [place], | | | | | | [place] [address] | | | | | | [phone] | | | +--------+ + + + [...] | + +---------+ + + | [facility] DEPARTMENT OF | | | | | RADIOLOGY | | | | + +---------+ + + documented in this encounter Visit Diagnoses Not on filedocumented in this encounter"
--- OUTSIDE RECORDS SUMMARY | ~2020-05-03 | XMS | Encounter Summary ---
Demographics + + + | Address | [address] | | | [place] [address] | + + + | Home Phone [...] [place] | | | | | [address] | | + + + + + Care Team Providers + +------+ + | Care Information Writer Name | Role | Phone | [...] [place] | | | | | | [address] | | | | | | [phone] | | | +--------+ + + + [...] | | | | | [place] [address] | | | | | | [phone] | | | | | | | | +--------+ + + + + | 06/26/ | Office | Cardiology | Dora De La Torre | | | 2020 | Visit | | [address] | | | | | | [address] | | | | | | [place] [address] | | | | | | [phone] | | | | | | | | +--------+ + + + + documented as of this encounter Visit Diagnoses Not on filedocumented in this encounter"
--- OUTSIDE RECORDS SUMMARY | ~2020-05-03 | XMS | Encounter Summary ---
Demographics + + + | Address | [address] | | | [place] [address] | + + + | Home Phone [...] [place] | | | | | [address] | | + + + + + Care Team Providers + +------+ + | Care Manager Group Name | Role | Phone | + [...] [address] | [address] [place], [place] | | | | | [place], [place] | [id number] | | | | | [address] | | | | | | [phone] | | | +--------+ + + + [...] for review. The order was faxed to [facility] today. She will let us know when [...] [address] | | | | | | [place] [address] | | | | | | [phone] | | | | | | | | +--------+ + + + + | 06/26/ | Office | Cardiology | Dora De La Torre | | | 2019 | Visit | | [address] Mendez [address] | | | | | | [address] | | | | | | [place] [address] | | | | | | [phone] | | | | | | | | +--------+ + + + + documented as of this encounter Visit Diagnoses Not on filedocumented in this encounter"
--- OUTSIDE RECORDS SUMMARY | ~2020-05-03 | XMS | Encounter Summary ---
Demographics + + + | Address | [address] | | | [place] [address] | + + + | Home Phone [...] [place] | | | | | [address] | | + + + + + Care Team Providers + +------+ + | Care Case Finishing Machine Adjuster Name | Role | Phone [...] | | | | | Procedures | LABORATORY ANIMAL FACILITY SUPERVISOR [address] | [address] | | | | | AR OFFICE | | [address] | | | | | CONSULTATION | [address] | [place] | | | | | NEW/ESTAB | [facility], | [address] Phone: | | | | | PATIENT 60 | [place] [address] | [phone] | | | | | MIN | Phone: | Fax: | | | | | | [phone] | [phone] | | | | | | Fax: | | | | | | | [phone] | | +--------+--------+ + + + + Encounter Details +--------+---------+ + + + | Date | Type | Department | Care Team | Description | +--------+---------+ + + + | 05/02/ | Office | [facility] | Frandy Teresa, | Spondylolisthesis of | | 2013 | Visit | NEUROSURGERY [address] | DO [address] | lumbar region | | | | [address] | [address] [place], [place] | (Primary Dx); Lumbar | | | | [place], [place] | [id number] | stenosis; Lumbar | | | | [address] | | radicular pain; | | | | [phone] | | Lumbago | +--------+---------+ + + [...] [address] [facility] [place], [place] [address] FAX: NEUROSURGERY HISTORY AND PHYSICAL EXAMINATION CHIEF [...] Take 15 mg by mouth nightl y. 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 CRANIAL NERVES: II: Acuity [...] Intrinsics 5 5 Ulnar Intrinsics 5 5 Corporate Attorney Strength 5 5 Hip Flexion 5 4* [...] encounter Miscellaneous Notes Miscellaneous - ON[facility] - 05/02/2014 12:00 AM PDT iscellaneous - ONBASE SCAN [facility] - 05/02/2014 12:00 AM PDTEle ctronically signed by [facility] at 05/08/2014 8:56 AM PDTdocumented in [...] | | | | | [place] [address] | | | | | | [phone] | | | | | | | | +--------+ + + + + | 06/26/ | Office | Cardiology | Dora De La Torre | | | 2019 | Visit | | [address] M[address] | | | | | | [address] | | | | | | [place] [address] | | | | | | [phone] | | | | | | | [...]
--- OUTSIDE RECORDS SUMMARY | ~2020-05-03 | XMS | Encounter Summary ---
Demographics + + + | Address | [address] | | | [place] [address] | + + + | Home Phone [...] [place] | | | | | [address] | | + + + + + Care Team Providers + +------+ + | Care Grounds Caretaker Name | Role | Phone | + +------+ + PCP | Unavailable | + +------+ + Encounter Details +--------+ + + + + | Date | Type | Department | Care Team | Description | +--------+ + + + + | 04/27/ | Hospital | [facility] | Sage Garza MD | | | 2001 | Encounter | HOSPITAL EMERGENCY | | | | | | CENTER [address] | [address] [place], [place] | | | | | | [address] | | | | | | [phone] | | | +--------+ + + + [...] | | | | | [place] [address] | | | | | | [phone] | | | | | | | | +--------+ + + + + | 06/26/ | Office | Cardiology | Dora De La Torre | | | 2020 | Visit | | [address] | | | | | | [address] | | | | | | [place] [address] | | | | | | [phone] | | | | | | | | +--------+ + + + + documented as of this encounter Visit Diagnoses Not on filedocumented in this encounter"
--- OUTSIDE RECORDS SUMMARY | ~2020-05-03 | XMS | Encounter Summary ---
Demographics + + + | Address | [address] | | | [place] [address] | + + + | Home Phone [...] [place] | | | | | [address] | | + + + + + Care Team Providers + +------+ + | Care Gizzard Peeler Name | Role | Phone | [...] + + | 06/27/ | Office | [facility] | Yecenia Richardson, | Hypertension, | | 2019 | Visit | CARDIOLOGY [place] | MD Nitin RODRIGUES | unspecified type | | | | [address] | [place], [place] | (Primary Dx); | | | | KEV SCHAF[facility] | [address] | Bradycardia | | | | [place] | | | | | | [address] | | | | | | [phone] | | | +--------+---------+ + + + [...] basis. Had an appointment today in [facility]. She has been feeling dizzy [...] Take by mouth. Blood Glucose Monitoring Suppl (Asia Translate VERIO FLEX SYSTEM) w/Device KIT by Does [...] mg by mouth Daily. Cholecalciferol (VITAMIN D-3) 02091 units CAPS Take 50,000 Units by mouth [...] tablet Take 10 mg by mouth nightly. [place]-3 Fatty Acids (FISH OIL CONCENTRATE) 1000 MG [...] [address] | | | | | | [place] [address] | | | | | | [phone] | | | | | | | | +--------+ + + + + | 06/26/ | Office | Cardiology | Dora De La Torre | | | 2019 | Visit | | [address] M[address] | | | | | | [address] | | | | | | [place] [address] | | | | | | [phone] | | | | | | | [...]
--- OUTSIDE RECORDS SUMMARY | ~2020-05-03 | XMS | Encounter Summary ---
Demographics + + + | Address | [address] | | | [place] [address] | + + + | Home Phone [...] [place] | | | | | [address] | | + + + + + Care Team Providers + +------+ + | Care Clinical Massage Therapist Name | Role | Phone [...] + + | 10/23/ | Telephone | [facility] | Ashley Chávez | Other (Patient | | 2019 | | CARDIOLOGY [place] | Pollo, Technical Information Specialist | called about | | | | [address] | | metoprolol. ) | | | | [place], [place] | | | | | | [address] | | | | | | [phone] | | | +--------+ + + + [...] Miscellaneous Notes Telephone Encounter - Ashley Chávez, Technical Information Specialist - 10/23/2019 10:49 AM [facility] [...] her back when I have her recommendations. JDW:STRATEGY ASSOCIATE-AAMA. [facility] umented in this encounter [...] [address] | | | | | | [place] [address] | | | | | | [phone] | | | | | | | | +--------+ + + + + | 06/26/ | Office | Cardiology | StefanielarryDora | | 2019 | Visit | | [address] | | | | | | [address] | | | | | | [place] [address] | | | | | | [phone] | | | | | | | | +--------+ + + + + documented as of this encounter Visit Diagnoses Not on filedocumented in this encounter"
--- OUTSIDE RECORDS SUMMARY | ~2020-05-03 | XMS | Encounter Summary ---
Demographics + + + | Address | [address] | | | [place] [address] | + + + | Home Phone [...] [place] | | | | | [address] | | + + + + + Care Team Providers + +------+ + | Care Bladder Changer Name | Role | Phone | [...] + + | 08/13/ | Documentati | [facility] | Katharine Moncada, | Other (urgent | | 2019 | on | CARDIOLOGY [place] | Technologist | report) | | | | [address] | | | | | | [place] | | | | | | [address] | | | | | | [phone] | | | +--------+ + + + [...] | | | | | [place] [address] | | | | | | [phone] | | | | | | | | +--------+ + + + + | 06/26/ | Office | Cardiology | Dora De La Torre | | | 2020 | Visit | | [address] | | | | | | [address] | | | | | | [place] [address] | | | | | | [phone] | | | | | | | | +--------+ + + + + documented as of this encounter Visit Diagnoses Not on filedocumented in this encounter"
--- OUTSIDE RECORDS SUMMARY | ~2020-05-03 | XMS | Encounter Summary ---
Demographics + + + | Address | [address] | | | [place] [address] | + + + | Home Phone [...] [place] | | | | | [address] | | + + + + + Care Team Providers + +------+ + | Care Ropeman Name | Role | Phone | + [...] | [facility] | Frandy Cagle, | Other (multiple | | 2013 | | NEUROSURGERY [address] | DO [address] | questions) | | | | [facility] | [address] [place], [place] | | | | | [place], [place] | [id number] | | | | | [address] | | | | | | [phone] | | | +--------+ + + + [...] and I might get a repeat MRI. Longview ordered. Thanks. ddendum Note - Shayne Aragon [...] - 07/29/2014 11:19 AM [facility]. [...] refill be mailed to her for her [place] 10/325mg which was given to her on [...] | | | | | [place] [address] | | | | | | [phone] | | | | | | | | +--------+ + + + + | 06/26/ | Office | Cardiology | Dora De La Torre | | | 2019 | Visit | | [address] | | | | | | [address] | | | | | | [place] [address] | | | | | | [phone] | | | | | | | | +--------+ + + + + documented as of this encounter Visit Diagnoses Not on filedocumented in this encounter"
--- OUTSIDE RECORDS SUMMARY | ~2020-05-03 | XMS | Encounter Summary ---
Demographics + + + | Address | [address] | | | [place] [address] | + + + | Home Phone [...] [place] | | | | | [address] | | + + + + + Care Team Providers + +------+ + | Care Commercial Account Officer Name | Role | Phone | [...] + + | 06/12/ | Office | [facility] | Chris Nicole, | Spondylisthesis | | 2013 | Visit | NEUROSURGERY [address] | PA-C [address] | (Primary Dx); | | | | [address] | [place], [place] | Radiculopathy of | | | | [place], [place] | [address] | leg; Lumbar spine | | | | [address] | | instability; Lumbar | | | | [phone] | | spondylosis; | | | | [...] f rom the original. ZANE Castillo [address] [facility] [place], [place] [address] FAX: NEUROSURGERY HISTORY AND PHYSICAL EXAMINATION CHIEF [...] Take 15 mg by mouth nightl y. Fordyce-3 Fatty Acids (FISH OIL CONCENTRATE) 1000 MG [...] Intrinsics 5 5 Ulnar Intrinsics 5 5 Color Card Maker Strength 5 5 Hip Flexion 5 4* [...] and coordinating her care. ELECTRONICALLY SIGNED BY: ZAEN Catsillo, 06/12/2014 14:57 documented in this encounter Plan [...] CANT[address] | | | | | | [place] [address] | | | | | | [phone] | | | | | | | | +--------+ + + + + | 06/26/ | Office | Cardiology | Dora De La Torre | | | 2019 | Visit | | [address] | | | | | | [address] | | | | | | [facility] [place] [address] | | | | | | [phone] | | | | | | | [...]
--- OUTSIDE RECORDS SUMMARY | ~2020-05-03 | XMS | Encounter Summary ---
Demographics + + + | Address | [address] | | | [place] [address] | + + + | Home Phone [...] [place] | | | | | [address] | | + + + + + Care Team Providers + +------+ + | Care Library Technology Instructor Name | Role | Phone [...] | 08/20/ | Documentati | [facility] | Katharine Moncada, | Other (urgent | | 2019 | on | CARDIOLOGY [place] | Technologist | report) | | | | [address] | | | | | | [place] | | | | | | [address] | | | | | | [phone] | | | +--------+ + + + [...] | | | | | [place] [address] | | | | | | [phone] | | | | | | | | +--------+ + + + + | 06/26/ | Office | Cardiology | Dora De La Torre | | | 2020 | Visit | | [address] | | | | | | [address] | | | | | | [place] [address] | | | | | | [phone] | | | | | | | | +--------+ + + + + documented as of this encounter Visit Diagnoses Not on filedocumented in this encounter"
--- OUTSIDE RECORDS SUMMARY | ~2020-05-03 | XMS | Encounter Summary ---
Demographics + + + | Address | [address] | | | [place] [address] | + + + | Home Phone [...] [place], [place] | | | | | [address] | | + + + + + Care Team Providers + +------+ + | Care Eeler Name | Role | Phone | + +------+ + PCP | Unavailable | + +------+ + Encounter Details +--------+ + + + + | Date | Type | Department | Care Team | Description | +--------+ + + + + | 06/30/ | Hospital | [facility] | | | | 1999 - | Encounter | MED CTR GENERIC PSY | | | | | | CONV DEPT [address] | | | | 07/05/ | | [address], | | | | 1999 | | [place] [address] | | | | | | [phone] | | | +--------+ + + + [...] | | | | | | [place] [address] | | | | | | [phone] | | | | | | | | +--------+ + + + + | 06/26/ | Office | Cardiology | Dora De La Torre | | | 2019 | Visit | | [address] | | | | | | [address] | | | | | | [place] [address] | | | | | | [phone] | | | | | | | | +--------+ + + + + documented as of this encounter Visit Diagnoses Not on filedocumented in this encounter"
--- OUTSIDE RECORDS SUMMARY | ~2020-05-03 | XMS | Clinical Summary ---
Demographics + + + | Address | [address] | | | [place] [address] | + + + | Home Phone [...] [place] | | | | | [address] | | + + + + + Care Team Providers + +------+ + | Care Senior Hydrogeologist Name | Role | Phone | + [...] | | | | e | | (Audiodraft VERIO FLEX | | | | | [...] mellitus | | | | | | ([facility]); Syncope, | | | | | | [...] | | | | | | type ([facility]); Rapid | | | | | | [...] | | | obesity) ([facility]) | +--------+ + + + + | 02/06/ | Telephone | Cardiology | Dora De La Torre | Patient Concerns | | 2019 | | | CAROLINE Mendez | | +--------+ + + + + | 02/05/ | Telephone | Cardiology | Ashley Chávez | Other (Patient | | 2019 | | | Pollo Director Game | problems. ) | +--------+ + + [...] [address] | | | | | | [place] [address] | | | | | | [phone] | | | | | | | | +--------+ + + + + | 06/26/ | Office | Cardiology | Dora De La Torre | | | 2019 | Visit | | [address] | | | | | | [address] | | | | | | [place] [address] | | | | | | [phone] | | | | | | | [...] | [employer] - | | 04/02/ | [id number] | | 5ccImplanted: Qty: 1 on | | Spine | MEDT | | 2019 | | | 07/02/2014 by Frandy Teresa | | Lumbar | | | | /[id number] | | DO Ronak [facility] | | | | | | 6-020 | | [facility] | | | | | | / | + +------+--------+ +--------+--------+--------+ | Graft Infuse Bone Kit Xxs - | | N/A: | SOFAMOR | | 01/21/ | [id number] | | [id number]: Qty: 1 on | | Spine | DANEK - DIV | | 2014 | 0 / | | 07/02/2014 by Frandy Teresa | | Lumbar | [employer] | | | /[id number] | | A, DO at [facility] | | | - [facility]K | | | 06AAH | | [facility] | | | | | | | + +------+--------+ +--------+--------+--------+ | Imp Spn Spcr Cpstn 8x26mm - | | N/A: | SOFAMOR | | 01/11/ | [id number] | | [id number]: Qty: 1 on | | Spine | DANEK - DIV | | 2021 | 6 / | | 07/02/2014 by Frandy Teresa | | Lumbar | [employer] | | | /[id number] | | A, DO at [facility] | | | - [facility] | | | 928 | | [facility] | | | | | | | + +------+--------+ +--------+--------+--------+ | Set Scrw Ns G5 Brk Off Ti | | N/A: | SOFAMOR | | | [id number] | | 4.75 - [id number]: | | Spine | DANEK - DIV | | | 0 / / | | Qty: 4 on 07/02/2014 by | | Lumbar | [employer] | | | | | Frandy Teresa DO at [facility] | | | - [facility] | | | | | [facility] | | | | | | | | [facility] | | | | | | | + +------+--------+ +--------+--------+--------+ | RodImplanted: Qty: 1 on | | N/A: | | | | [id number] | | 07/02/2014 by Frandy Teresa | | Spine | | | | 540 / | | DO Ronak at [facility] | | Lumbar | | | | / | | [facility] | | | | | | | + +------+--------+ +--------+--------+--------+ | RodImplanted: Qty: 1 on | | N/A: | MEDTROL - | | | [id number] | | 07/02/2014 by Frandy Teresa | | Spine | MDTR | | | 545 / | | DO Ronak at [facility] | | Lumbar | | | | / | | [facility] | | | | | | | + +------+--------+ +--------+--------+--------+ | Screw 7.5x50mm Sextant - | | N/A: | [employer] - | | | [id number] | | [id number]: Qty: 1 on | | Spine | MEDT | | | [id number] | | 07/02/2014 by Frandy Teresa | | Lumbar | | | | / / | | DO Ronak at [facility] | | | | | | | | [facility] | | | | | | | + +------+--------+ +--------+--------+--------+ | Cannulated ScrewImplanted: | | N/A: | MEDTROL - | | | [id number] | | Qty: 1 on 07/02/2014 by | | Spine | MDTR | | | [id number] | | Frandy Teresa DO at [facility] | | Lumbar | | | | / / | | [facility] | | | | | | | | [facility]ENTER | | | | | | | + +------+--------+ +--------+--------+--------+ | Cannulated ScrewImplanted: | | N/A: | MEDTR[employer]IC - | | | [id number] | | Qty: 1 on 07/02/2014 by | | Spine | MEDT | | | [id number] | | Frandy Teresa DO at [facility] | | Lumbar | | | | / / | | [facility] | | | | | | [...] | | | obesity) ([facility]) | | + +--------+ + + + [...] | | | | | DESIREE DONNELLY ([id number]) on | | | | | | [...] +--------+ +---------+--------+ | MEDICARE | MEDICA | [id number] | 02/22/20 | [phone] | | Medica | | | RE | | 09-Pre | 5 | | re | | | PART A | | sent | | | | | | AND B | | | | | | + +--------+ +--------+ +---------+--------+ | MEDICARE | MEDICA | [id number] | 02/22/20 | [phone] | | Medica [...] [place] | | | 1 (Home) | [address] | + +--------+ +--------+ + + | Cindy Arndt | Person | Self | [birth year] | [address] | | | al/Fam | | [phone] | [phone] | [address] [place], [place] | | | [place] | | | 1 (Home) | [address] | + +--------+ +--------+ + + Advance Directives + + + + + | Type | Date Recorded | Patient | Explanation | | | | Low Vision Therapist | | + + + + + | Power of | | | | | Commercial Drone Software Developer | | | | + + + [...]
--- OUTSIDE RECORDS SUMMARY | ~2020-05-03 | XMS | Encounter Summary ---
Demographics + + + | Address | [address] | | | [place] [address] | + + + | Home Phone [...] [place], [place] | | | | | [address] | | + + + + + Care Team Providers + +------+ + | Care Counterintelligence Analyst Name | Role | Phone | + +------+ + PCP | Unavailable | + +------+ + Encounter Details +--------+ + + + + | Date | Type | Department | Care Team | Description | +--------+ + + + + | 02/16/ | Hospital | [facility] | | | | 1994 | Encounter | MED CTR LABORATORY | | | | | | [address] | | | | | | [place] | | | | | | [address] | | | | | | [phone] | | | +--------+ + + + [...] | | | | | [place] [address] | | | | | | [phone] | | | | | | | | +--------+ + + + + | 06/26/ | Office | Cardiology | Dora De La Torre | | | 2020 | Visit | | [address] | | | | | | [address] | | | | | | [place] [address] | | | | | | [phone] | | | | | | | | +--------+ + + + + documented as of this encounter Visit Diagnoses Not on filedocumented in this encounter"
--- OUTSIDE RECORDS SUMMARY | ~2020-05-03 | XMS | Encounter Summary ---
Demographics + + + | Address | [address] | | | [place] [address] | + + + | Home Phone [...] [place] | | | | | [address] | | + + + + + Care Team Providers + +------+ + | Care Defect Cutter Name | Role | Phone | [...] + + | 08/13/ | Documentati | [facility] | Katharine Moncada, | Other (urgent | | 2019 | on | CARDIOLOGY [place] | Technologist | report) | | | | [address] | | | | | | [place] | | | | | | [address] | | | | | | [phone] | | | +--------+ + + + [...] | | | | | [place] [address] | | | | | | [phone] | | | | | | | | +--------+ + + + + | 06/26/ | Office | Cardiology | Dora De La Torre | | | 2020 | Visit | | [address] | | | | | | [address] | | | | | | [place] [address] | | | | | | [phone] | | | | | | | | +--------+ + + + + documented as of this encounter Visit Diagnoses Not on filedocumented in this encounter"
--- OUTSIDE RECORDS SUMMARY | ~2020-05-03 | XMS | Encounter Summary ---
Demographics + + + | Address | [address] | | | [place] [address] | + + + | Home Phone [...] [place], [place] | | | | | [address] | | + + + + + Care Team Providers + +------+ + | Care Lands Resource Manager Name | Role | Phone | + +------+ + PCP | Unavailable | + +------+ + Encounter Details +--------+ + + + + | Date | Type | Department | Care Team | Description | +--------+ + + + + | 05/29/ | Hospital | [facility] | | | | 1991 | Encounter | MED CTR LABORATORY | | | | | | [address] | | | | | | [place] | | | | | | [address] | | | | | | [phone] | | | +--------+ + + + [...] | | | | | [place] [address] | | | | | | [phone] | | | | | | | | +--------+ + + + + | 06/26/ | Office | Cardiology | Dora De La Torre | | | 2020 | Visit | | [address] | | | | | | [address] | | | | | | [place] [address] | | | | | | [phone] | | | | | | | | +--------+ + + + + documented as of this encounter Visit Diagnoses Not on filedocumented in this encounter"
--- OUTSIDE RECORDS SUMMARY | ~2020-05-03 | XMS | Encounter Summary ---
Demographics + + + | Address | [address] | | | [place] [address] | + + + | Home Phone [...] [place] | | | | | [address] | | + + + + + Care Team Providers + +------+ + | Care Landscape Account Manager Name | Role | Phone [...] updated | | | | | [address], | address | | | | | [address] [place] | | | | | | [place] [address] | | | | | | [phone] | | | +--------+ + + + [...] | | | | | [place] [address] | | | | | | [phone] | | | | | | | | +--------+ + + + + | 06/26/ | Office | Cardiology | Dora De La Torre | | | 2019 | Visit | | [address] | | | | | | [address] | | | | | | [place] [address] | | | | | | [phone] | | | | | | | | +--------+ + + + + documented as of this encounter Visit Diagnoses Not on filedocumented in this encounter"
--- OUTSIDE RECORDS SUMMARY | ~2020-05-03 | XMS | Encounter Summary ---
Demographics + + + | Address | [address] | | | [place] [address] | + + + | Home Phone [...] [place], [place] | | | | | [address] | | + + + + + Care Team Providers + +------+ + | Care Microscopist Name | Role | Phone | + +------+ + PCP | Unavailable | + +------+ + Encounter Details +--------+ + + + + | Date | Type | Department | Care Team | Description | +--------+ + + + + | 02/22/ | Hospital | [facility] | | | | 1996 - | Encounter | MED CTR GENERIC PSY | | | | | | CONV DEPT [address] | | | | 02/26/ | | [address], | | | | 1996 | | [place] [address] | | | | | | [phone] | | | +--------+ + + + [...] | | | | | | [place] [address] | | | | | | [phone] | | | | | | | | +--------+ + + + + | 06/26/ | Office | Cardiology | Dora De La Torre | | | 2019 | Visit | | [address] | | | | | | [address] | | | | | | [place] [address] | | | | | | [phone] | | | | | | | | +--------+ + + + + documented as of this encounter Visit Diagnoses Not on filedocumented in this encounter"
--- OUTSIDE RECORDS SUMMARY | ~2020-05-03 | XMS | Encounter Summary ---
Demographics + + + | Address | [address] | | | [place] [address] | + + + | Home Phone [...] [place] | | | | | [address] | | + + + + + Care Team Providers + +------+ + | Care Raftsman Name | Role | Phone | + +------+ + | Natalee Andersen NP | PCP | | + +------+ + Encounter Details +--------+ + + + + | Date | Type | Department | Care Team | Description | +--------+ + + + + | 06/25/ | Hospital | [facility] | Latricia Feliciano | | | 2014 | Encounter | MED CTR ACUTE | D, PT [address] | | | | | PHYSICAL THERAPY | NEFTALIE [place] | | | | | [address] | [address] | | | | | [place] [address] | | | | | | [phone] | | | +--------+ + + + [...] + + + +---------+ + + | Freedom-3 Fatty | Take 1,000 mg by | [...] | | | | | [place] [address] | | | | | | [phone] | | | | | | | | +--------+ + + + + | 06/26/ | Office | Cardiology | Dora De La Torre | | | 2020 | Visit | | [address] | | | | | | [address] | | | | | | [place] [address] | | | | | | [phone] | | | | | | | | +--------+ + + + + documented as of this encounter Visit Diagnoses Not on filedocumented in this encounter"
--- OUTSIDE RECORDS SUMMARY | ~2020-05-03 | XMS | Encounter Summary ---
Demographics + + + | Address | [address] | | | [place] [address] | + + + | Home Phone [...] [place] | | | | | [address] | | + + + + + Care Team Providers + +------+ + | Care Sales Promotion Coordinator Name | Role | Phone [...] + | 08/21/ | Documentati | [facility] | Katharine Moncada, | Other (urgent | | 2019 | on | CARDIOLOGY [place] | Technologist | report) | | | | [address] | | | | | | [place] | | | | | | [address] | | | | | | [phone] | | | +--------+ + + + [...] | | | | | [place] [address] | | | | | | [phone] | | | | | | | | +--------+ + + + + | 06/26/ | Office | Cardiology | Dora De La Torre | | | 2020 | Visit | | [address] | | | | | | [address] | | | | | | [place] [address] | | | | | | [phone] | | | | | | | | +--------+ + + + + documented as of this encounter Visit Diagnoses Not on filedocumented in this encounter"
--- OUTSIDE RECORDS SUMMARY | ~2020-05-03 | XMS | Encounter Summary ---
Demographics + + + | Address | [address] | | | [place] [address] | + + + | Home Phone [...] [place], [place] | | | | | [address] | | + + + + + Care Team Providers + +------+ + | Care Student Services Advisor Name | Role | Phone | + +------+ + PCP | Unavailable | + +------+ + Encounter Details +--------+ + + + + | Date | Type | Department | Care Team | Description | +--------+ + + + + | 07/23/ | Hospital | [facility] | | | | 1992 - | Encounter | MED CTR GENERIC PSY | | | | | | CONV DEPT [address] | | | | 07/28/ | | [address], | | | | 1992 | | [place] [address] | | | | | | [phone] | | | +--------+ + + + [...] [address] | | | | | | [place] [address] | | | | | | [phone] | | | | | | | | +--------+ + + + + | 06/26/ | Office | Cardiology | Dora De La Torre | | | 2019 | Visit | | [address] | | | | | | [address] | | | | | | [place] [address] | | | | | | [phone] | | | | | | | | +--------+ + + + + documented as of this encounter Visit Diagnoses Not on filedocumented in this encounter"
--- OUTSIDE RECORDS SUMMARY | ~2020-05-03 | XMS | Encounter Summary ---
Demographics + + + | Address | [address] | | | [place] [address] | + + + | Home Phone [...] [place] | | | | | [address] | | + + + + + Care Team Providers + +------+ + | Care Team Leader Surgery Name | Role | Phone | + +------+ + | Basim Bolanos MD | PCP | | + +------+ + Encounter Details +--------+ + + + + | Date | Type | Department | Care Team | Description | +--------+ + + + + | 02/22/ | Abstract | [facility] [place] | [facility], | | | 2012 | | GASTROENTEROLOGY | [place] [address] | | | | | [address] | [address] | | | | | [address] [place], [place] | [place], [place] | | | | | [address] | [address] | | | | | [phone] | | | +--------+ + + + [...] | | | | | [place] [address] | | | | | | [phone] | | | | | | | | +--------+ + + + + | 06/26/ | Office | Cardiology | Dora De La Torre | | | 2019 | Visit | | [address] | | | | | | [address] | | | | | | [place] [address] | | | | | | [phone] | | | | | | | | +--------+ + + + + documented as of this encounter Visit Diagnoses Not on filedocumented in this encounter"
--- OUTSIDE RECORDS SUMMARY | ~2020-05-03 | XMS | Encounter Summary ---
Demographics + + + | Address | [address] | | | [place] [address] | + + + | Home Phone [...] [place] | | | | | [address] | | + + + + + Care Team Providers + +------+ + | Care Plastic Parts Fabricator Name | Role | Phone | [...] [address] | | | | | | [place], [place] | | | | | | [address] | | | +--------+ + + + [...]
--- OUTSIDE RECORDS SUMMARY | ~2020-05-03 | XMS | Encounter Summary ---
Demographics + + + | Address | [address] | | | [place] [address] | + + + | Home Phone [...] [place] | | | | | [address] | | + + + + + Care Team Providers + +------+ + | Care Interventional Radiology Technologist Name | Role | Phone [...] + + | 08/24/ | Documentati | [facility] | Katharine Moncada, | Other (urgent | | 2019 | on | CARDIOLOGY [place] | Technologist | report) | | | | [address] | | | | | | [place] | | | | | | [address] | | | | | | [phone] | | | +--------+ + + + [...] | | | | | [place] [address] | | | | | | [phone] | | | | | | | | +--------+ + + + + | 06/26/ | Office | Cardiology | Dora De La Torre | | | 2020 | Visit | | [address] | | | | | | [address] | | | | | | [place] [address] | | | | | | [phone] | | | | | | | | +--------+ + + + + documented as of this encounter Visit Diagnoses Not on filedocumented in this encounter"
--- OUTSIDE RECORDS SUMMARY | ~2020-05-03 | XMS | Encounter Summary ---
Demographics + + + | Address | [address] | | | [place] [address] | + + + | Home Phone [...] [place] | | | | | [address] | | + + + + + Care Team Providers + +------+ + | Care Officer Lieutenant Name | Role | Phone | + +------+ + | Natalee Andersen NP | PCP | | + +------+ + Encounter Details +--------+ + + + + | Date | Type | Department | Care Team | Description | +--------+ + + + + | 06/25/ | Hospital | [facility] | Frandy Teresa, | Acquired | | 2014 | Encounter | MED CTR XRAY [address] | DO [address] | spondylolisthesis | | | | [place] | [address] [place], [place] | | | | | [place] [address] | [address] | | | | | [phone] | | | +--------+ + + + [...] + + + +---------+ + + | [place]-3 Fatty | Take 1,000 mg by [...] [address] | | | | | | [place] [address] | | | | | | [phone] | | | | | | | | +--------+ + + + + | 06/26/ | Office | Cardiology | Dora De La Torre | | | 2020 | Visit | | [address] | | | | | | [address] | | | | | | [place] [address] | | | | | | [phone] | | | | | | | | +--------+ + + + + documented as of this encounter Visit Diagnoses + + | Diagnosis | + + | Acquired spondylolisthesis | + + documented in this encounter"
--- OUTSIDE RECORDS SUMMARY | ~2020-05-03 | XMS | Encounter Summary ---
Demographics + + + | Address | [address] | | | [place] [address] | + + + | Home Phone [...] [place], [place] | | | | | [address] | | + + + + + Care Team Providers + +------+ + | Care Academic Registrar Name | Role | Phone | + +------+ + PCP | Unavailable | + +------+ + Encounter Details +--------+ + + + + | Date | Type | Department | Care Team | Description | +--------+ + + + + | 06/07/ | Hospital | [facility] | | | | 1991 - | Encounter | MED CTR GENERIC OP | | | | | | CONV DEPT [address] | | | | 10/07/ | | [address], | | | | 1991 | | [place] [address] | | | | | | [phone] | | | +--------+ + + + [...] [address] | | | | | | [place] [address] | | | | | | [phone] | | | | | | | | +--------+ + + + + | 06/26/ | Office | Cardiology | Dora De La Torre | | | 2019 | Visit | | [address] | | | | | | [address] | | | | | | [place] [address] | | | | | | [phone] | | | | | | | | +--------+ + + + + documented as of this encounter Visit Diagnoses Not on filedocumented in this encounter"
--- OUTSIDE RECORDS SUMMARY | ~2020-05-03 | XMS | Encounter Summary ---
Demographics + + + | Address | [address] | | | [place] [address] | + + + | Home Phone [...] [place] | | | | | [address] | | + + + + + Care Team Providers + +------+ + | Care Paper Bag Inspector Name | Role | Phone | [...] | | | spondylolist | | [address] | | | | | hesis | | [place], | | | | | Spinal | | [place] [address] | | | | | stenosis, | | Phone: | | | | | lumbar | | [phone] | | | | | region, | | Fax: | | | | | without | | [phone] | | | | | neurogenic | [...] [address] | [place] [address] | (Primary Dx); | | 07/05/ | | [place] [address] | [phone] | Diabetes mellitus | | 2013 | | [phone] | | ([facility]); Disturbance [...] Stable for discharge to SNF. DISPOSITION: SNF ([facility]) DISCHARGE MEDICATIONS Medications prior to admission that [...] Take 15 mg by mouth nightl y. Columbia-3 Fatty Acids (FISH OIL CONCENTRATE) 1000 MG [...] + + + +---------+ + + | Columbia-3 Fatty | Take 1,000 mg by | [...] Lynn PA-C - 07/04/2014 7:43 AM PDT [facility] PROGRESS NOTE Pt. Name/Age/: Cindy Arndt 58 y.o. 1955 Med. Record Number: [id number] Date of admission: 07/02/2014 Subjective: The patient [...] mari drain and riley cath today. D/c primary care physician. Patient Active Problem List Diagnosis LUMBAR DISC [...] signed by: Chris Nicole, 07/04/2014 7:45 [facility] Chris Lynn PA-C - 07/03/2014 7:13 AM PDT . [facility] PROGRESS NOTE Pt. Name/Age/: Cindy Arndt 58 y.o. 1955 Med. Record Number: [id number] Date of admission: 07/02/2014 Subjective: The patient [...] heartbeat Depression Migraine Schizophrenia Electronically signed by: Chirs Nicole, 07/03/2014 7:13 [facility] on Smith, KRIS - 07/03/2014 [...] signed by: Frandy Teresa DO, 07/02/2014 11:15 [facility] signed by Frandy Teresa DO at 06/2014 11:15 AM PDTFrandy Teresa DO - 07/02/2014 11:15 AM [id number] [facility], [address] [place], [place] [id number] FAX: NEUROSURGERY HISTORY AND PHYSICAL EXAMINATION CHIEF [...] Take 15 mg by mouth earnestine eldridge. Columbia-3 Fatty Acids (FISH OIL CONCENTRATE) 1000 MG [...] Intrinsics 5 5 Ulnar Intrinsics 5 5 Industry Analyst Strength 5 5 Hip Flexion 5 [...] documented in this en counter Procedure Notes [facility] - 07/12/2014 12:00 AM PDT 14 1:45 [facility] - 07/04/2014 12:00 AM PDT [facility] - 07/02/2014 12:00 AM PDT documented in this encounter Miscellaneous Notes Plan of Care - [facility] - 07/12/2014 12:00 AM PDT iscellaneous - [facility] - 07/12/2014 12:00 AM PDTElec tronically signed by Mariah Schulte at 07/12/2014 1:45 PM PDTMiscellaneous - [facility] - 07/12/2014 12:00 AM PDT i scellaneous - [facility] - 07/12/2014 12:00 AM PDT lan [...] TBD) Equipment Recommendations: tub bench;hand held shower head;general operations manager;comfort height toilet ( pt. has all [...] might be different fro m the original. LONG-TERM FACILITY TRANSFER ORDERS Patient Name: Cindy Arndt Patient : 1955 Gender: female Date of Admission: 07/02/2014 Date of Discharge: 07/05/2014 Admitting Provider: Frandy Teresa DO Discharging Provider: Chris Nicole PA-C Consultants: none PCP: Natalee Andersen [facility] transferring to: [facility] Provider after transfer: PCP and Dr. Frandy Teresa CODE STATUS: [x] Attempt CPR [] Do not resuscitate If patient is pulseless and not breathing, RN/MAINTENANCE ASSOCIATE may pronounce . Advanced Directives included: [] [...] for this patient. Diet: [] As tolerated MARKER MACHINE ATTENDANT may upgrade or downgrade diet as condition Indicates. [x] RN may downgrade diet as indicated. Type: [] Continue current diet of: Diet and Supplements Diet DIET CONSISTENT CARBOHYDRATE Number of Occurrences: -1 Days [] Other: Consistency/Precautions: [] Whole [] Thin Liquids [] Cut-up [] Nibley Thick [] Advanced Chopped [] Honey Thickened [] Chopped [] Advanced Ground [] 1:1 feedings [] Ground/Pureed [] Other: Tube Feedings: [] PEG [] GT [] JT [] NGT [] Formula type: (Dry Primer Powder Blender may change/substitute if indicated). [] Continuous Rate: [...] & Management for: ____same as above [] MARKER MACHINE ATTENDANT Evaluation &Management for: [] Other: Wound/Skin Care: [...] Take 15 mg by mouth ni linda. Columbia-3 Fatty Acids (FISH OIL CONCENTRATE) 1000 MG [...] (pediatric) IChris PA-C, certify that [facility] care is medically nec essary on a continuing basis for any of the conditions for which he/she received care during this hospitalization. Check one: [x] Skilled [] Intermediate Additional Orders/Instructions: Physician's signature:__Chris Nicole PA-C 07/05/2014 13:18 [facility] JMINKarsten [facility] USE ONLY: [] Admitting orders [...] position change. Sitting at EOB on arrival, MARKETING TRAFFIC MANAGER pres ent. Pt. donned LSO brace, [...] of endurance. When patient is walking in [facility] with a regular FWW she has to stop frequently and states she feels very weak, like sh e may fall. Patient lives alone. Outpatient prescriptions are filled at [facility] in [facility]. Electronically signed by: Franca Narvaez RN 07/05/2014 10:43 lan of Adilene Layne Rivers - 07/05/2014 10:39 AM PDTFaxed referral to Gabriela Stout and Lidia Tran. [place] : [id number] and [place]: [id number] Electronically signed by: Layne Collado 07/05/2014 10:40 [...] TBD) Equipment Recommendations: tub bench;hand held shower head;general operations manager;comfort height toilet ( pt. has all necessary equipment) Planned Interventions: ADL retraining;transfer training Patient Status/Goals Reflects last filed data of patient status; may be from multiple contributors. Grooming: Status: did not occur today Assist: Utilizes: STG: Status: New Goal:modified independent LTG: Status: Goal: UE Dressing: Status: SBA Assist: Utilizes: STG: Status: Goal: LTG: Status: Goal: LE Dressing: Status: SBA Utilizes: general operations manager STG: Status: New Goal: modified independent [...] bed mobil ity. Pt has been using TOOL MARKER and pain pills during the night. Zofran [...] by herself in a small apartment in [place]. Patient states she has her apartment set [...] to come from [facility] [place]. She states the Said she might benefit [facility] upon discharge. She would like me to contact [facility] to giv e them a heads up. I called and spoke to Summer at [facility] , told her patients [...] Pt. resting in bed on arrival, used TOOL MARKER x 2 during session. SPL 5/10. Pt. hoping to urinate interceptor operator to straight cath. Sidelying to sit [...] TBD) Equipment Recommendations: tub bench;hand held shower head;general operations manager;comfort height toilet ( pt. has all [...] & Review . Outcome: Progressing Pt using TOOL MARKER and PO pain pills, c/o numbness on [...] and on a continuous oximeter for her TOOL MARKER. She was unable to do her IS because o f the medications. She has the IS at bedside with a goal of 2400. She did not require additi onal respiratory care throughout the evening. p Note - Frandy Teresa, - 07/02/2014 2:25 PM PDTDATE: 07/02/2014 SURGEON: Frandy Teresa MD. AGRONOMY INSTRUCTOR: ZANE Oh PREOPERATIVE DIAGNOSES 1. Spondylolisthesis, L5-S1. [...] x 26 mm Capstone PEEK cage from [employer] was chosen. It was filled with Infus [...] Note Cindy Arndt 58 y.o. female 1955 [id number] Proc. Date 07/02/2014 Preop Dx Spondylolisthesis L5-S1 Postop Dx same Procedure Procedure(s):MIS L5-S1 TRANSFORAMINAL LUMBAR INTERBODY FUSION Anesthesia General Surgeon Frandy Teresa DO Physicist [employer] ZANE Oh EBL 100 mL Findings Findings consistent with scheduled procedure. No other abnormalities found. Complications none Specimens * No specimens in log * Drains Electronically signed by: Frandy Teresa DO 07/02/2014 14:22 [facility] documented in this en counter [...] | | | | | [place] [address] | | | | | | [phone] | | | | | | | | +--------+ + + + + | 06/26/ | Office | Cardiology | Dora De La Torre | | | 2020 | Visit | | [address] | | | | | | [address] | | | | | | [place] [address] | | | | | | [phone] | | | | | | | [...] + | [facility] | [address] | [place] | [phone] | | [facility] | | [address] | | | - LABORATORY | | | | + + + + + | [facility] | [address] | [place] | | | [facility] | | [id number] | | [...] + | [facility] | [address] | [place], [place] | [phone] | | [facility] | | [address] | | | - LABORATORY | | | | + + + + + | [facility] | [address] | [place], [place] | | | [facility] | | [id number] | | [...] [address] | [place] | [phone] | | [facility] | | [address] | | | - LABORATORY | | | | + + + + + | [address] | [address] | [place], [place] | | | [facility] | | [address] | | [...] + | [facility] | [address] | [place] | [phone] | | [facility] | | [address] | | | - LABORATORY | | | | + + + + + | [facility] | [address] | [place], [place] | | | [facility] | | [address] | | | - LABORATORY [...] [address] | [place] | [phone] | | [facility] | | [address] | | | - LABORATORY | | | | + + + + + | [address] | [address] | [place] | | | [facility] | | [address] | | [...] + | [facility] | [address] | [place] | [phone] | | [facility] | | [address] | | | - LABORATORY | | | | + + + + + | [facility] | [address] | [place], [place] | | | [facility] | | [address] | | | - LABORATORY [...] [address] | [place] | [phone] | | [facility] | | [address] | | | - LABORATORY | | | | + + + + + | [address] | [address] | [place] | | | [facility] | | [address], [facility] | | | - LABORATORY [...] + | [facility] | [address] | [place], [place] | [phone] | | [facility] | | [address] | | | - LABORATORY | | | | + + + + + | [facility] | [address] | [place], [place] | | | [facility] | | [id number] [place] [address] | | | - LABORATORY | | [...] + | [address] | [address] | [place], [place] | [phone] | | [facility] | | [address] | | | - LABORATORY | | | | + + + + + | [facility] | [address] | [place], [place] | | | [facility] | | [id number] [place] [address] | | | - LABORATORY | | [...] | of hardware for posterior fusion from J8fubrajs S1 with interbody hardware at L5-S1. The [...] + | MISCELLANEOUS LAB | | | [phone] | + +---------+ + + | MISCELANIOUS LAB | | | [phone] | + +---------+ + + POC Glucose [...] + | [facility] | [address] | [place] | [phone] | | [facility] | | [address] | | | - LABORATORY | | | | + + + + + | [facility] | [address] | [place] | | | [facility] | | [address], [facility] | | | - LABORATORY [...] + | [facility] | [address] | [place], [place] | [phone] | | [facility] | | [address] | | | - LABORATORY | | | | + + + + + | [facility] | [address] | [place], [place] | | | [facility] | | [address] | | [...] [address] | [place] | [phone] | | [facility] | | [address] | | | - LABORATORY | | | | + + + + + | [address] | [address] | [place] | | | [facility] | | [address] | | [...] + | [address] [facility] | [address] | [place], [place] | [phone] | | [facility] | | [address] | | | - LABORATORY | | | | + + + + + | [facility] | [address] | [place], [place] | | | [facility] | | [address] | | [...] [address] | [place] | [phone] | | [facility] | | [address] | | | - LABORATORY | | | | + + + + + | [facility] | [address] | [place] | | | [facility] | | [address] | | [...] | | | [facility] | | [address] | | | - BLOOD BANK | [...] + +---------+ +---+---+---+ | morphine 5 mg/mL TOOL MARKER syringe | New Bag | 07/02/20 | [...] | | | | Dose(mg): 0, Starting TOOL MARKER | | | | | | | Dose(mg): 1, Incremental Increase | | | | | | | TOOL MARKER Dose(mg): 0.5, Maximum TOOL MARKER | | | | | | | [...]
--- OUTSIDE RECORDS SUMMARY | ~2020-05-03 | XMS | Encounter Summary ---
Demographics + + + | Address | [address] | | | [place] [address] | + + + | Home Phone [...] [place] | | | | | [address] | | + + + + + Care Team Providers + +------+ + | Care Clam Shovel Operator Name | Role | Phone [...] + + | 08/16/ | Telephone | [facility] | Ashley Chávez | Other (Called to | | 2018 | | [facility] [place] | Pollo, Body Joiner | tell patient what | | | | [address] | | Nicholas said. ) | | | | [place] [address] | | | | | | [place] | | | | | | [address] | | | | | | [phone] | | | +--------+ + + + [...] Miscellaneous Notes Telephone Encounter - Ashley Chávez, Body Joiner - 08/16/2019 2:57 PM PDTCall m cierra to patient to advise of Dr. Peterson's notes. Patient stated understanding. JKASSIE:TOOL POLISHER-AAMA el ephone Encounter - Ashley Chávez Body Joiner - 08/16/2019 2:56 PM PDT----- Mess age [...] Thanks. ----- Message ----- From: Lesa Ochoa, Body Joiner Sent: 08/13/2019 13:31 To: Desiree Peterson DO [...] [address] | | | | | | [place] [address] | | | | | | [phone] | | | | | | | | +--------+ + + + + | 06/26/ | Office | Cardiology | Dora De La Torre | | | 2019 | Visit | | [address] | | | | | | [address] | | | | | | [place] [address] | | | | | | [phone] | | | | | | | | +--------+ + + + + documented as of this encounter Visit Diagnoses Not on filedocumented in this encounter"
--- OUTSIDE RECORDS SUMMARY | ~2020-05-03 | XMS | Encounter Summary ---
Demographics + + + | Address | [address] | | | [place] [address] | + + + | Home Phone [...] [place] | | | | | [address] | | + + + + + Care Team Providers + +------+ + | Care Cognos Developer Name | Role | Phone | + +------+ + | Natalee Andersen NP | PCP | | + +------+ + Encounter Details +--------+ + + + + | Date | Type | Department | Care Team | Description | +--------+ + + + + | 05/02/ | Hospital | [facility] | Frandy Teresa, | Back pain | | 2014 | Encounter | MED CTR XRAY [address] | DO [address] | | | | | [place] | [place] [address] [place] | | | | | [place] [address] | [address] | | | | | [phone] | | | +--------+ + + + [...] + + + +---------+ + + | Harlingen-3 Fatty | Take 1,000 mg by | [...] | | | | | [place] [address] | | | | | | [phone] | | | | | | | | +--------+ + + + + | 06/26/ | Office | Cardiology | Dora De La Torre | | | 2019 | Visit | | [address] | | | | | | [address] | | | | | | [place] [address] | | | | | | [phone] | | | | | | | [...] + | MISCELLANEOUS LAB | | | [phone] | + +---------+ + + | MISCELANIOUS LAB | | | [phone] | + +---------+ + + documented in this encounter Visit Diagnoses + + | Diagnosis | + + | Back pain Backache, unspecified | + + documented in this encounter"
--- OUTSIDE RECORDS SUMMARY | ~2020-05-03 | XMS | Encounter Summary ---
Demographics + + + | Address | [address] | | | [place] [address] | + + + | Home Phone [...] [place] | | | | | [address] | | + + + + + Care Team Providers + +------+ + | Care Directory Clerk Name | Role | Phone | [...] | + + | Interface, Interactive Media Designer In - 11/04/2006 3:03 AM PST | | [address] | | [place], [place] [address] [facility] and | | ClinicsOPERATION RECORDMed [...] skin retractor was put in place. The [place] elevators wereused to separate the | | [...]
--- OUTSIDE RECORDS SUMMARY | ~2020-05-03 | XMS | Encounter Summary ---
Demographics + + + | Address | [address] | | | [place] [address] | + + + | Home Phone [...] [place], [place] | | | | | [address] | | + + + + + Care Team Providers + +------+ + | Care Stretch Box Tender Name | Role | Phone | + +------+ + PCP | Unavailable | + +------+ + Encounter Details +--------+ + + + + | Date | Type | Department | Care Team | Description | +--------+ + + + + | 02/24/ | Hospital | [facility] | | | | 1997 | Encounter | MED CTR EMERGENCY | | | | | | [address] | | | | | | [place] | | | | | | [address] | | | | | | [phone] | | | +--------+ + + + [...] | | | | | [place] [address] | | | | | | [phone] | | | | | | | | +--------+ + + + + | 06/26/ | Office | Cardiology | Dora De La Torre | | | 2020 | Visit | | [address] | | | | | | [address] | | | | | | [place] [address] | | | | | | [phone] | | | | | | | | +--------+ + + + + documented as of this encounter Visit Diagnoses Not on filedocumented in this encounter"
--- OUTSIDE RECORDS SUMMARY | ~2020-05-03 | XMS | Encounter Summary ---
Demographics + + + | Address | [address] | | | [place] [address] | + + + | Home Phone [...] [place] | | | | | [address] | | + + + + + Care Team Providers + +------+ + | Care Eeg Technician Name | Role | Phone | [...] [place] | | | | | | [address] | | | | | | [phone] | | | +--------+ + + + [...] | | | | | [place] [address] | | | | | | [phone] | | | | | | | | +--------+ + + + + | 06/26/ | Office | Cardiology | Dora De La Torre | | | 2020 | Visit | | [address] | | | | | | [address] | | | | | | [place] [address] | | | | | | [phone] | | | | | | | | +--------+ + + + + documented as of this encounter Visit Diagnoses Not on filedocumented in this encounter"
--- OUTSIDE RECORDS SUMMARY | ~2020-05-03 | XMS | Encounter Summary ---
Demographics + + + | Address | [address] | | | [place] [address] | + + + | Home Phone [...] [place] | | | | | [address] | | + + + + + Care Team Providers + +------+ + | Care Manager Intel Name | Role | Phone | + [...] [place] | | | | | | [address] | | | | | | [phone] | | | +--------+ + + + [...] | | | | | [place] [address] | | | | | | [phone] | | | | | | | | +--------+ + + + + | 06/26/ | Office | Cardiology | Dora De La Torre | | | 2020 | Visit | | [address] | | | | | | [address] | | | | | | [place] [address] | | | | | | [phone] | | | | | | | | +--------+ + + + + documented as of this encounter Visit Diagnoses Not on filedocumented in this encounter"
--- OUTSIDE RECORDS SUMMARY | ~2020-05-03 | XMS | Encounter Summary ---
Demographics + + + | Address | [address] | | | [place] [address] | + + + | Home Phone [...] [place] | | | | | [address] | | + + + + + Care Team Providers + +------+ + | Care Registered Nurse Step Down Name | Role | Phone | + [...] | Radiology | [facility] | | | atrial | ADOPTION MANAGER [address] | [address] | | | | | fibrillation | [address] | [place] | | | | | History of | [address] | [place], [place] | | | | | stroke | [place], [place] | [address] | | | | | Sinus | [address] | Phone: | | | | | tachycardia | Phone: | [phone] | | | | | by | [phone] | Fax: | | | | | electrocardi | Fax: | [phone] | | | | | ogram New | [phone] | | | | | | onset [...] + + | 01/09/ | Office | [facility] | Roxannmiguel ángelDora | History of atrial | | 2020 | Visit | CARDIOLOGY [place] | [address] | fibrillation | | | | [address] | [address] | (Primary Dx); Benign | | | | [address] | [place] [address] | essential HTN; | | | | [place], [place] | [phone] | History of | | | | [address] | | hypothyroidism; | | | | [phone] | | Stress | | | | [...] an urgent Echo to be done at [place] to follow up on new left bundle [...] of fatigue and shortness of breath. 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 She reports after she lost 160 pounds with a gastric sleeve that she was retested for sle ep apnea 2 years ago, and told the results negative, but has not had CPAP for 3 years She has previously seen Dr. Garland in [place], and different sleep provider in [facility] when lived over there. She [...] thirst or hunger. Psychiatric/Behavioral: Bipolar/Schizophrenia. Tx'd by [employer] - [employer] Vaccines: Current on flu vaccine: 2019 Current on pneumonia vaccine:PPSV 23 05/29/2013 Habits/Social : Denies history of smoking. Denies EtOH use. Denies recreational or illici t drug use. Exercises sporadically. Lives in [place] . Outpatient Medications Prior to Visit Medication [...] by mouth nightly. Blood Glucose Monitoring Suppl ([employer] VERIO FLEX SYSTEM) w/Device KIT by Does [...] nonspecific ST-T wave abnormality rate 82 bpm, WI 176 ms, QRS 80 ms, QTC 446 ms tracing personally reviewed by me EK12/17/2019: Sinus tachycardia, nonspecific ST wave abnormalities, rate 105 bpm, WI 196 ms, QRS 74 ms, QTC 430 ms, tracing personally reviewed by me, and compared to EKG performed in February 2019, rate is less well-controlled EK01/10/2020 (metoprolol XL 50 mg twice daily. Normal sinus rhythm, new left bundle bran ch block Rate 74 bpm, WI 204 ms, QRS 138 ms, QTC 488 ms, tracing personally reviewed by me and Dr. Peterson. compared to EKG performed in November, new left bundle branch block, lead III has lower voltage QRS also in aVL and aVF, and improved voltage to anterior leads and rate i s better controlled. LABS Labs: 12/26/2018: ( [facility] [...] and reviewed her EKG results with her traffic representative, Dr. Peterson, who is in the cli vickie today, and the plan is to get an updated echo to evaluate her for any new wall motion ab normalities. If she has any wall motion abnormalities, she will need to have further evalua tion for ischemic heart disease in [place] such as a stress test or angiogram I reviewed her EKG with her, and discussed this plan with her. The Echo will be ordered on an urgent basis, is currently a restriction on all nonurgent testing at [facility] . She was agreeable to this plan [...] purp ose Preston BUCIO [facility] 01/10/2020 docume nted in this encounter [...] [address] | | | | | | [place] [address] | | | | | | [phone] | | | | | | | | +--------+ + + + + | 06/26/ | Office | Cardiology | Roxannmiguel ángelDora | | | 2019 | Visit | | [address] | | | | | | [address] | | | | | | [place] [address] | | | | | | [phone] | | | | | | | [...] | | | | | | [place] ([id number]) on | | | | | | [...]
--- OUTSIDE RECORDS SUMMARY | ~2020-05-03 | XMS | Encounter Summary ---
Demographics + + + | Address | [address] | | | [place] [address] | + + + | Home Phone [...] [place], [place] | | | | | [address] | | + + + + + Care Team Providers + +------+ + | Care Therapist Speech Name | Role | Phone | + [...] [address] | | | | | | [place], [place] | | | | | | [address] | | | | | | [phone] | | | +--------+ + + + [...] | | | | | [place] [address] | | | | | | [phone] | | | | | | | | +--------+ + + + + | 06/26/ | Office | Cardiology | Dora De La Torre | | | 2020 | Visit | | [address] | | | | | | [place] | | | | | | [place] [address] | | | | | | [phone] | | | | | | | | +--------+ + + + + documented as of this encounter Visit Diagnoses Not on filedocumented in this encounter
--- OUTSIDE RECORDS SUMMARY | ~2020-05-03 | XMS | Encounter Summary ---
Demographics + + + | Address | [address] | | | [place] [address] | + + + | Home Phone [...] [place] | | | | | [address] | | + + + + + Care Team Providers + +------+ + | Care Whizzer Hand Name | Role | Phone | [...] + + | 07/19/ | Office | [facility] | Desiree Peterson DO | Syncope, unspecified | | 2019 | Visit | CARDIOLOGY [place] | [address] | syncope type | | | | [address] | [place], [place] | (Primary Dx); | | | | [address] [place] | [address] | Essential | | | | [place] | | hypertension; | | | | [address] | | Irregular heartbeat | | | | [phone] | | | +--------+---------+ + + + [...] Peterson DO - 07/19/2019 10:40 AM PDT [facility] Cardiology Cardiology Follow Up Note Reason [...] rtake in exercise. She recently got a [employer] and has been walking him more regularly. [...] by mouth daily. Blood Glucose Monitoring Suppl (Bandspeed VERIO FLEX SYSTEM) w/Device KIT by Does not ap ply route. budesonide-formoterol (SYMBICORT) 160-4.5 MCG/ACT inhaler Inhale 2 puffs into the lungs 2 (two) times daily. Calcium Carbonate Antacid 1000 MG tablet Take 1,000 mg by mouth 3 (three) times daily. Cholecalciferol (VITAMIN D3) 62741 units CAPS Take by mouth once a [...] | | | | | [place] [address] | | | | | | [phone] | | | | | | | | +--------+ + + + + | 06/26/ | Office | Cardiology | Dora De La Torre | | | 2020 | Visit | | [address] | | | | | | [place] | | | | | | [place] [address] | | | | | | [phone] | | | | | | | [...]
--- OUTSIDE RECORDS SUMMARY | ~2020-05-03 | XMS | Encounter Summary ---
Demographics + + + | Address | [address] | | | [place] [address] | + + + | Home Phone [...] [place], [place] | | | | | [address] | | + + + + + Care Team Providers + +------+ + | Care Utilization Review Rn Name | Role | Phone | + +------+ + PCP | Unavailable | + +------+ + Encounter Details +--------+ + + + + | Date | Type | Department | Care Team | Description | +--------+ + + + + | 09/10/ | Hospital | [facility] | | | | 1992 | Encounter | MED CTR LABORATORY | | | | | | [address] | | | | | | [place] | | | | | | [address] | | | | | | [phone] | | | +--------+ + + + [...] | | | | | [place] [address] | | | | | | [phone] | | | | | | | | +--------+ + + + + | 06/26/ | Office | Cardiology | Dora De La Torre | | | 2020 | Visit | | [address] | | | | | | [address] | | | | | | [place] [address] | | | | | | [phone] | | | | | | | | +--------+ + + + + documented as of this encounter Visit Diagnoses Not on filedocumented in this encounter"
--- OUTSIDE RECORDS SUMMARY | ~2020-05-03 | XMS | Encounter Summary ---
Demographics + + + | Address | [address] | | | [place] [address] | + + + | Home Phone [...] [place] | | | | | [address] | | + + + + + Care Team Providers + +------+ + | Care Hydroelectric Plant Electrician Name | Role | Phone | [...] | | | | | | [place], | | | | | | [place] [address] | | | | | | [phone] | | | +--------+ + + + [...] | | + +---------+ + + | [facility] DEPARTMENT OF | | | | | RADIOLOGY | | | | + +---------+ + + documented in this encounter Visit Diagnoses Not on filedocumented in this encounter"
--- OUTSIDE RECORDS SUMMARY | ~2020-05-03 | XMS | Encounter Summary ---
Demographics + + + | Address | [address] | | | [place] [address] | + + + | Home Phone [...] [place], [place] | | | | | [address] | | + + + + + Care Team Providers + +------+ + | Care Fuel Cell Test Engineer Name | Role | Phone | + +------+ + PCP | Unavailable | + +------+ + Encounter Details +--------+ + + + + | Date | Type | Department | Care Team | Description | +--------+ + + + + | 12/27/ | Hospital | [facility] | | | | 1997 | Encounter | MED CTR EMERGENCY | | | | | | [address] | | | | | | [place] | | | | | | [address] | | | | | | [phone] | | | +--------+ + + + [...] | | | | | [place] [address] | | | | | | [phone] | | | | | | | | +--------+ + + + + | 06/26/ | Office | Cardiology | Dora De La Torre | | | 2020 | Visit | | [address] | | | | | | [address] | | | | | | [place] [address] | | | | | | [phone] | | | | | | | | +--------+ + + + + documented as of this encounter Visit Diagnoses Not on filedocumented in this encounter"
--- OUTSIDE RECORDS SUMMARY | ~2020-05-03 | XMS | Encounter Summary ---
Demographics + + + | Address | [address] | | | [place] [address] | + + + | Home Phone [...] [place], [place] | | | | | [address] | | + + + + + Care Team Providers + +------+ + | Care Instructional Technology Specialist Name | Role | Phone | + +------+ + PCP | Unavailable | + +------+ + Encounter Details +--------+ + + + + | Date | Type | Department | Care Team | Description | +--------+ + + + + | 12/22/ | Hospital | [facility] | | | | 1993 - | Encounter | MED CTR GENERIC PSY | | | | | | CONV DEPT [address] | | | | 12/25/ | | [address] [place], | | | | 1993 | | [place] [address] | | | | | | [phone] | | | +--------+ + + + [...] [place] | | | | | | [place] [address] | | | | | | [phone] | | | | | | | | +--------+ + + + + | 06/26/ | Office | Cardiology | Dora De La Torre | | | 2019 | Visit | | [address] | | | | | | [address] | | | | | | [place] [address] | | | | | | [phone] | | | | | | | | +--------+ + + + + documented as of this encounter Visit Diagnoses Not on filedocumented in this encounter"
--- OUTSIDE RECORDS SUMMARY | ~2020-05-03 | XMS | Encounter Summary ---
Demographics + + + | Address | [address] | | | [place] [address] | + + + | Home Phone [...] [place], [place] | | | | | [address] | | + + + + + Care Team Providers + +------+ + | Care Defective Cigarette Slitter Name | Role | Phone | + +------+ + PCP | Unavailable | + +------+ + Encounter Details +--------+ + + + + | Date | Type | Department | Care Team | Description | +--------+ + + + + | 10/29/ | Hospital | [facility] | | | | 1994 | Encounter | MED CTR LABORATORY | | | | | | [address] | | | | | | [place] | | | | | | [address] | | | | | | [phone] | | | +--------+ + + + [...] | | | | | [place] [address] | | | | | | [phone] | | | | | | | | +--------+ + + + + | 06/26/ | Office | Cardiology | Dora De La Torre | | | 2020 | Visit | | [address] | | | | | | [address] | | | | | | [place] [address] | | | | | | [phone] | | | | | | | | +--------+ + + + + documented as of this encounter Visit Diagnoses Not on filedocumented in this encounter"
--- OUTSIDE RECORDS SUMMARY | ~2020-05-03 | XMS | Encounter Summary ---
Demographics + + + | Address | [address] | | | [place] [address] | + + + | Home Phone [...] [place] | | | | | [address] | | + + + + + Care Team Providers + +------+ + | Care Sound Printer Name | Role | Phone | [...] | | | | | | | [address] | | | | | | | Phone: | | | | | | | [phone] | | | | | | | Fax: | | | | | | | [phone] | | +--------+ + + + + [...] [address] | [address] [place], [place] | lumbar fusion | | | | [place], [place] | [address] | | | | | [address] | | | | | | [phone] | | | +--------+---------+ + + + [...] the original. Frandy Teresa DO [address] [facility] [address] [address] [place] [address] FAX: NEUROSURGERY FOLLOW-UP CHIEF COMPLAINT: Chief Complaint [...] Laterality: N/A; Surgeon: Frandy castellanos DO; Location: [facility] CURRENT MEDICATIONS: Current Outpatient [...] Take 15 mg by mouth nightl y. [place]-3 Fatty Acids (FISH OIL CONCENTRATE) 1000 MG [...] encounter Miscellaneous Notes Miscellaneous - [facility] - 09/27/2014 12:00 AM PST documented [...] | | | | | [place] [address] | | | | | | [phone] | | | | | | | | +--------+ + + + + | 06/26/ | Office | Cardiology | Dora De La Torre | | | 2019 | Visit | | [address] | | | | | | [address] | | | | | | [place] [address] | | | | | | [phone] | | | | | | | [...]
--- OUTSIDE RECORDS SUMMARY | ~2020-05-03 | XMS | Encounter Summary ---
Demographics + + + | Address | [address] | | | [place] [address] | + + + | Home Phone [...] [place], [place] | | | | | [address] | | + + + + + Care Team Providers + +------+ + | Care Aircraft Lay Out Worker Name | Role | Phone | + +------+ + PCP | Unavailable | + +------+ + Encounter Details +--------+ + + + + | Date | Type | Department | Care Team | Description | +--------+ + + + + | 05/23/ | Hospital | [facility] | [place], | | | 2011 | Encounter | MED CTR XRAY [address] | MD [address] | | | | | [place] | [place] | | | | | [place] [address] | [address] | | | | | [phone] | | | +--------+ + + + [...] + + + +---------+ + + | Buhl-3 Fatty | Take 1,000 mg by | [...] [address] | | | | | | [place] [address] | | | | | | [phone] | | | | | | | | +--------+ + + + + | 06/26/ | Office | Cardiology | Dora De La Torre | | | 2019 | Visit | | [address] | | | | | | [address] | | | | | | [place] [address] | | | | | | [phone] | | | | | | | [...] | [facility] Department | [place] | | [address] [place] [address] | [facility] | | LUMBAR SPINE MR [...] Transcribed Date/Time: | | | 05/23/2012 16:55 Farm Implement Mechanic: <Electronically Signed | | | by Adriano Anne MD> 05/23/12 8945 | | + + + + + | Procedure Note | + + | Juan, Rad Conversion - 11/30/2013 5:47 PM [facility] | | Diagnostic Imaging Department [address] [facility] | | LUMBAR SPINE MR WITHOUT CONTRAST, [...] 16:37 | |Transcribed Date/Time: 05/23/2012 16:55 | |Farm Implement Mechanic: | |<Electronically Signed by Adriano Anne MD> 05/23/12 1725 | + + + +---------+ + + | Performing | Address | City/State/Zipcode | Phone Number | | Organization | | | | + +---------+ + + | [place] | | | | | [facility] | | | | + +---------+ + + documented in this encounter Visit Diagnoses Not on filedocumented in this encounter"
--- OUTSIDE RECORDS SUMMARY | ~2020-05-03 | XMS | Encounter Summary ---
Demographics + + + | Address | [address] | | | [place] [address] | + + + | Home Phone [...] [place] | | | | | [address] | | + + + + + Care Team Providers + +------+ + | Care Marketing Area Manager Name | Role | Phone | [...] Results | | 2014 | | [facility] [place] | [address] [facility] | | | | | [address] | [place] [address] | | | | | [place], [place] | [phone] | | | | | [address] | | | | | | [phone] | | | +--------+ + + + [...] Miscellaneous Notes Telephone Encounter - Adrianne Horton, Size Tester - 03/11/2015 3:41 PM PDTCalled Pat and delivered her results. Patient verbalized good understanding. elephone Encounter - Adrianne Horton , Size Tester - 03/11/2015 8:40 AM PDTCall placed to [...] [place] | | | | | | [place] [address] | | | | | | [phone] | | | | | | | | +--------+ + + + + | 06/26/ | Office | Cardiology | Dora De La Torre | | | 2019 | Visit | | [address] | | | | | | [address] | | | | | | [place] [address] | | | | | | [phone] | | | | | | | | +--------+ + + + + documented as of this encounter Visit Diagnoses Not on filedocumented in this encounter"
--- OUTSIDE RECORDS SUMMARY | ~2020-05-03 | XMS | Encounter Summary ---
Demographics + + + | Address | [address] | | | [place] [address] | + + + | Home Phone [...] [place] | | | | | [address] | | + + + + + Care Team Providers + +------+ + | Care Manager Ethics Name | Role | Phone | + [...] + | 07/08/ | Telephone | [facility] | Frandy Teresa, | Other (post op call | | 2013 | | NEUROSURGERY [address] | DO [address] | ) | | | | [address] [facility] [address] | [address] [place], [place] | | | | | [place], [place] | [id number] | | | | | [address] | | | | | | [phone] | | | +--------+ + + + [...] MA - 07/08/2014 11:04 AM [facility] SHAYNE ARAGON documented in this encounter Plan [...] [place] | | | | | | [place] [address] | | | | | | [phone] | | | | | | | | +--------+ + + + + | 06/26/ | Office | Cardiology | Dora De La Torre | | | 2020 | Visit | | [address] | | | | | | [address] | | | | | | [place] [address] | | | | | | [phone] | | | | | | | | +--------+ + + + + documented as of this encounter Visit Diagnoses Not on filedocumented in this encounter"
--- OUTSIDE RECORDS SUMMARY | ~2020-05-03 | XMS | Encounter Summary ---
Demographics + + + | Address | [address] | | | [place] [address] | + + + | Home Phone [...] [place] | | | | | [address] | | + + + + + Care Team Providers + +------+ + | Care Commercial Lines Account Manager Name | Role | Phone [...] | | | [address] [place] | [place] [address] | | | | | [place] [address] | | | | | | [phone] | | | +--------+ + + + [...] [address] | | | | | | [place] [address] | | | | | | [phone] | | | | | | | | +--------+ + + + + | 06/26/ | Office | Cardiology | Dora De La Torre | | | 2019 | Visit | | [address] | | | | | | [address] | | | | | | [place] [address] | | | | | | [phone] | | | | | | | [...]
--- OUTSIDE RECORDS SUMMARY | ~2020-05-03 | XMS | Encounter Summary ---
Demographics + + + | Address | [address] | | | [place] [address] | + + + | Home Phone [...] [place], [place] | | | | | [address] | | + + + + + Care Team Providers + +------+ + | Care Inspector Tubes Name | Role | Phone | + +------+ + PCP | Unavailable | + +------+ + Encounter Details +--------+ + + + + | Date | Type | Department | Care Team | Description | +--------+ + + + + | 12/09/ | Hospital | [facility] | Serafin Bautista | | | 2011 | Encounter | MED CTR XRAY [address] | T, [address] | | | | | [place] | [place] | | | | | [place] [address] | [address] | | | | | [phone] | | | +--------+ + + + [...] | | | | | [place] [address] | | | | | | [phone] | | | | | | | | +--------+ + + + + | 06/26/ | Office | Cardiology | Dora De La Torre | | | 2019 | Visit | | [address] | | | | | | [address] | | | | | | [place] [address] | | | | | | [phone] | | | | | | | [...] Performed At | + + + | [facility] Diagnostic Imaging Department | [facility] | | [address] [facility] | [facility] | | PROCEDURE NOTE EPIDURAL | [...] Juan, Rad Conversion - 11/30/2013 4:45 PM [facility] | | Diagnostic Imaging Department | | [address] [facility] | | | | | [...]
--- OUTSIDE RECORDS SUMMARY | ~2020-05-03 | XMS | Encounter Summary ---
Demographics + + + | Address | [address] | | | [place] [address] | + + + | Home Phone [...] [place], [place] | | | | | [address] | | + + + + + [...] | 09/23/ | Hospital | [facility] | | | | 1994 | Encounter | MED CTR LABORATORY | | | | | | [address] | | | | | | [place] | | | | | | [address] | | | | | | [phone] | | | +--------+ + + + [...] | | | | | [place] [address] | | | | | | [phone] | | | | | | | | +--------+ + + + + | 06/26/ | Office | Cardiology | Dora De La Torre | | | 2020 | Visit | | [address] | | | | | | [address] | | | | | | [place] [address] | | | | | | [phone] | | | | | | | | +--------+ + + + + documented as of this encounter Visit Diagnoses Not on filedocumented in this encounter"
--- OUTSIDE RECORDS SUMMARY | ~2020-05-03 | XMS | Encounter Summary ---
Demographics + + + | Address | [address] | | | [place] [address] | + + + | Home Phone [...] [place], [place] | | | | | [address] | | + + + + + Care Team Providers + +------+ + | Care Quality Technician Name | Role | Phone | + +------+ + PCP | Unavailable | + +------+ + Encounter Details +--------+ + + + + | Date | Type | Department | Care Team | Description | +--------+ + + + + | 04/01/ | Hospital | [facility] | | | | 1998 | Encounter | MED CTR XRAY [address] | | | | | | [address] | | | | | | [place] [address] | | | | | | [phone] | | | +--------+ + + + [...] | | | | | [place] [address] | | | | | | [phone] | | | | | | | | +--------+ + + + + | 06/26/ | Office | Cardiology | Dora De La Torre | | | 2019 | Visit | | [address] | | | | | | [address] | | | | | | [place] [address] | | | | | | [phone] | | | | | | | | +--------+ + + + + documented as of this encounter Visit Diagnoses Not on filedocumented in this encounter"
--- OUTSIDE RECORDS SUMMARY | ~2020-05-03 | XMS | Encounter Summary ---
Demographics + + + | Address | [address] | | | [place] [address] | + + + | Home Phone [...] [place] | | | | | [address] | | + + + + + Care Team Providers + +------+ + | Care Family Service Worker Name | Role | Phone [...] + + | 05/01/ | Telephone | [facility] | Dora De La Torre | Medication Question | | 2020 | | CARDIOLOGY [place] | [address] | | | | | [address] | [address] | | | | | [address] | [place] [address] | | | | | [place] | [phone] | | | | | [address] | | | | | | [phone] | | | +--------+ + + + [...] [place] | | | | | | [place] [address] | | | | | | [phone] | | | | | | | | +--------+ + + + + | 09/03/ | Office | Cardiology | Dora De La Torre | | | 2020 | Visit | | [address] | | | | | | [address] | | | | | | [place] [address] | | | | | | [phone] | | | | | | | | +--------+ + + + + documented as of this encounter Visit Diagnoses Not on filedocumented in this encounter"
--- OUTSIDE RECORDS SUMMARY | ~2020-05-03 | XMS | Encounter Summary ---
Demographics + + + | Address | [address] | | | [place] [address] | + + + | Home Phone [...] [place] | | | | | [address] | | + + + + + Care Team Providers + +------+ + | Care Cake Knocker Name | Role | Phone | + [...] | SLEEP DISORDER [address] | [address] | | | | | [address] [place] | [place], [place] | | | | | [place] [address] | [address] | | | | | [phone] | | | +--------+ + + + [...] [address] | | | | | | [place] [address] | | | | | | [phone] | | | | | | | | +--------+ + + + + | 06/26/ | Office | Cardiology | Dora De La Torre | | | 2019 | Visit | | [address] | | | | | | [address] | | | | | | [place] [address] | | | | | | [phone] | | | | | | | | +--------+ + + + + documented as of this encounter Visit Diagnoses Not on filedocumented in this encounter"
--- OUTSIDE RECORDS SUMMARY | ~2020-05-03 | XMS | Encounter Summary ---
Demographics + + + | Address | [address] [facility] [address] | | | [place] [address] | + + + | Home Phone [...] [place] | | | | | [address] | | + + + + + Care Team Providers + +------+ + | Care Blocker Polishing Name | Role | Phone | + [...] Clinic | | | | | | [facility] | | | | | | [place], [place] | | | | | | [address] | | | | | | [phone] | | | +--------+ + + + [...] as of this encounter Progress Notes Interface, Design Printing Machine Setter In - 12/11/2006 5:03 AM [facility] DATE: 07/03/97 INFECTIOUS DISEASE [...]
--- OUTSIDE RECORDS SUMMARY | ~2020-05-03 | XMS | Encounter Summary ---
Demographics + + + | Address | [address] | | | [place] [address] | + + + | Home Phone [...] [place] | | | | | [address] | | + + + + + [...] + + | 08/30/ | Telephone | [facility] | Ashley Chávez | Other (Patient wants | | 2018 | | CARDIOLOGY [place] | Pollo, Restoration Technician | to take monitor | | | | [address] | | off. ) | | | | [address] | | | | | | [place] | | | | | | [address] | | | | | | [phone] | | | +--------+ + + + [...] Miscellaneous Notes Telephone Encounter - Ashley Chávez, Restoration Technician - 08/30/2019 9:19 AM Bertagutierrez t [...] thankful for the news. Patient stated understanding JDW:HAND PATTERN MARKER-AAMA. [facility] umented in this encounter Plan [...] [address] | | | | | | [place] [address] | | | | | | [phone] | | | | | | | | +--------+ + + + + | 06/26/ | Office | Cardiology | Dora De La Torre | | | 2020 | Visit | | [address] | | | | | | [address] | | | | | | [place] [address] | | | | | | [phone] | | | | | | | | +--------+ + + + + documented as of this encounter Visit Diagnoses Not on filedocumented in this encounter"
--- OUTSIDE RECORDS SUMMARY | ~2020-05-03 | XMS | Encounter Summary ---
Demographics + + + | Address | [address] | | | [place] [address] | + + + | Home Phone [...] [place], [place] | | | | | [address] | | + + + + + Care Team Providers + +------+ + | Care Husbandry Technician Name | Role | Phone | + +------+ + PCP | Unavailable | + +------+ + Encounter Details +--------+ + + + + | Date | Type | Department | Care Team | Description | +--------+ + + + + | 12/06/ | Hospital | [facility] | | | | 1994 | Encounter | MED CTR LABORATORY | | | | | | [address] | | | | | | [place] | | | | | | [address] | | | | | | [phone] | | | +--------+ + + + [...] | | | | | [place] [address] | | | | | | [phone] | | | | | | | | +--------+ + + + + | 06/26/ | Office | Cardiology | Dora De La Torre | | | 2020 | Visit | | [address] | | | | | | [address] | | | | | | [place] [address] | | | | | | [phone] | | | | | | | | +--------+ + + + + documented as of this encounter Visit Diagnoses Not on filedocumented in this encounter"
--- OUTSIDE RECORDS SUMMARY | ~2020-05-03 | XMS | Encounter Summary ---
Demographics + + + | Address | [address] | | | [place] [address] | + + + | Home Phone [...] [place] | | | | | [address] | | + + + + + Care Team Providers + +------+ + | Care Academic Physician Name | Role | Phone | [...] [address] | [address] [place], [place] | (Primary Dx) | | | | [place], [place] | [address] | | | | | [address] | | | | | | [phone] | | | +--------+ + + + [...] [address] | | | | | | [place] [address] | | | | | | [phone] | | | | | | | | +--------+ + + + + | 06/26/ | Office | Cardiology | Dora De La Torre | | | 2019 | Visit | | [address] | | | | | | [address] | | | | | | [place] [address] | | | | | | [phone] | | | | | | | [...] + | MISCELLANEOUS LAB | | | [phone] | + +---------+ + + | MISCELANIOUS LAB | | | [phone] | + +---------+ + + documented in this encounter Visit Diagnoses + + | Diagnosis | + + | Status post lumbar spinal fusion - Primary Arthrodesis status | + + documented in this encounter"
--- OUTSIDE RECORDS SUMMARY | ~2020-05-03 | XMS | Encounter Summary ---
Demographics + + + | Address | [address] | | | [place] [address] | + + + | Home Phone [...] [place] | | | | | [address] | | + + + + + [...] + + | 02/13/ | Office | [facility] | Dora De La Torre | History of atrial | | 2020 | Visit | CARDIOLOGY [place] | [address] | fibrillation | | | | [address] | [place] | (Primary Dx); New | | | | [address] | [place] [address] | onset left bundle | | | | [place] | [phone] | branch block (LBBB); | | | | [address] | | Benign essential | | | | [phone] | | HTN; History of | | [...] [facility]) | +--------+---------+ + + + Social History [...] 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 Her [id number] VASC score is 4 (stroke, HTN, gender) [...] She has previously seen Dr. Garland in [place], and different sleep provider in [facility] when lived over there. She [...] go back to volunteering at the local [employer], though this plan will need to be [...] thirst or hunger. Psychiatric/Behavioral: Bipolar/Schizophrenia. Tx'd by [employer] Vaccines: Current on flu vaccine: 2019 Current on pneumonia vaccine:PPSV 23 05/29/2013 Habits/Social : Denies history of smoking. Denies EtOH use. Denies recreational or illici t drug use. Exercises sporadically. Lives in [place] . Outpatient Medications Prior to Visit Medication [...] by mouth nightly. Blood Glucose Monitoring Suppl ([employer] VERIO FLEX SYSTEM) w/Device KIT by Does [...] discomfort, patient unable to walk on eriberto dmPrivatext. Resting EKG normal sinus rhythm, arrhythmias ventricular [...] nonspecific ST-T wave abnormality rate 82 bpm, MT 176 ms, QRS 80 ms, QTC 446 ms tracing personally reviewed by me EK12/17/2019: Sinus tachycardia, nonspecific ST wave abnormalities, rate 105 bpm, MT 196 ms, QRS 74 ms, QTC 430 ms, tracing personally reviewed by me, and compared to EKG performed in February 2019, rate is less well-controlled EK01/10/2020 (metoprolol XL 50 mg twice daily. Normal sinus rhythm, new left bundle bran ch block Rate 74 bpm, MT 204 ms, QRS 138 ms, QTC 488 [...] bundle branch block. Ra te 105 bpm, MT 184 ms, QRS 144 ms, QTC 489 [...] reviewed her EKG and Echo with her cloth packer Dr. Peterson, who was in clin ic [...] ([facility]) Orders Placed This Encounter Procedures ECG 12 [...] for continuity of care purp osHannah BUCIO [facility] Cardiology 02/15/2020 docume nted in [...] [address] | | | | | | [place] [address] | | | | | | [phone] | | | | | | | | +--------+ + + + + | 06/26/ | Office | Cardiology | Dora De La Torre | | | 2019 | Visit | | [address] | | | | | | [address] | | | | | | [place] [address] | | | | | | [phone] | | | | | | | [...] | | | | | DORA VELAZQUEZ ([id number]) on | | | | | | [...]
--- OUTSIDE RECORDS SUMMARY | ~2020-05-03 | XMS | Encounter Summary ---
Demographics + + + | Address | [address] | | | [place] [address] | + + + | Home Phone [...] [place] | | | | | [address] | | + + + + + Care Team Providers + +------+ + | Care Metallurgical Engineer Name | Role | Phone | [...] + + | 12/17/ | Office | [facility] | Dora De La Torre | History of atrial | | 2020 | Visit | CARDIOLOGY [place] | [address] | fibrillation; Benign | | | | [address] | [address] | essential HTN; | | | | [address] | [place] [address] | History of | | | | [place], [place] | [phone] | hypothyroidism; | | | | [address] | | Stress | | | | [phone] | | hyperglycemia; | | | | | | History of sleep | | | | | | apnea; History of | | | | | | stroke; Obesity, | | | | | | Class III, BMI | | | | | | 40-49.9 (morbid | | | | | | obesity) ([facility]); Mild | | | | | [...] of fatigue and shortness of breath. Her [id number] VASC score is 4 (stroke, HTN, gender) , and Dr. Peterson did not anticoagulate he r due to low incidence of atrial fib. Her current and previous testing and procedures are detailed below. She was seen in the emergency room on October 11, 2019 at [facility] and presented wi th paranoia feeling that knives were chasing her , so went to the emergency room so that she could feel safe and Had [facility] [place] evaluation and discharged home Labs performed at [...] 405 and [facility], and she was to be started on Abilify. She was seen again in the emergency room on October 19 and , [id number] for sim ilar complaints with increased delusions, [...] She has previously seen Dr. Garland in [place], and different provider in [place] when lived over there. She reports she [...] thirst or hunger. Psychiatric/Behavioral: Bipolar/Schizophrenia. Tx'd by [employer] Vaccines: Current on flu vaccine: 2019 Current on pneumonia vaccine:PPSV 23 05/29/2013 Habits/Social : Denies history of smoking. Denies EtOH use. Denies recreational or illici t drug use. Exercises sporadically. Lives in [place] . Outpatient Medications Prior to Visit Medication [...] Take by mouth. Blood Glucose Monitoring Suppl ([employer] VERIO FLEX SYSTEM) w/Device KIT by Does not ap ply route. budesonide-formoterol (SYMBICORT) 160-4.5 mcg/puff inhaler Inhale 2 puffs into the lung s 2 (two) times daily. calcium carbonate antacid (TUMS ULTRA 1000) 1000 MG CHEW Chew and swallow 1,000 mg 4 ti mes daily as needed. Cholecalciferol (VITAMIN D-3) 38379 units CAPS Take 50,000 Units by mouth [...] chest discomfort, patient unable to walk on [employer]. Resting EKG normal sinus rhythm, arrhythmias ventricular [...] is less well-controlled LABS Labs: 12/26/2018: ( [facility])CMP: Sodium 139, potassium 4.2, chloride 99, BUN 10, creatinine 0. 7, BNP 28. CBC: WBC 7.8, hemoglobin 14.3, hematocrit 42.7, platelets 214 Labs: 09/28/2019:( [facility]) CBC: WBC 7.8, hemoglobin 14.9, hematocrit 43.8, platelets 221. C MP: Sodium 132, potassium 4.2, chloride 95, AST 76, ALT 76, alk phos 134 Labs: 10/11/2019:( [facility]) CBC: WBC 6.7, RBC 4.97, hemoglobin 15.2, hematocrit 44.7, platel ets 200. CMP: Glucose 385, BUN 7, creatinine 0.62, GFR 97, sodium 131, potassium 4.1, chlor kelby 95, albumin 4.3, total bilirubin 0.6, AST 75, ALT 73, alk phos 144. Thyroid: TSH 4.27 Labs: 10/12/2020:( [facility]) CBC: WBC 7, RBC 4.93, hemoglobin 14.7, hematocrit 44.1, platele ts 186 normal UA CMP: Glucose 381, BUN 6, creatinine 0.63, GFR 95, sodium 133, potassium 3.8 , chloride 97, albumin 4.3, total bili 0.6, AST 62, ALT 75, alk phos 145 thyroid: TSH 3.07 Labs: 10/20/2019:( [facility]) CBC: WBC 7.1, RBC 4.93, [...] in a prescription to her local pharmacy [facility] . I made no other changes [...] continuity of care purp ose Preston BUCIO [facility] Cardiology 12/17/2019 docume nted in [...] [address] | | | | | | [place] [address] | | | | | | [phone] | | | | | | | | +--------+ + + + + | 06/26/ | Office | Cardiology | Britt Dora | | | 2019 | Visit | | [address] | | | | | | [address] | | | | | | [place] [address] | | | | | | [phone] | | | | | | | [...] | | | | | | Yesenia ([id number]) on | | | | | | [...]
--- OUTSIDE RECORDS SUMMARY | ~2020-05-03 | XMS | Encounter Summary ---
Demographics + + + | Address | [address] | | | [place] [address] | + + + | Home Phone [...] [place], [place] | | | | | [address] | | + + + + + Care Team Providers + +------+ + | Care Quarter Section Ironer Name | Role | Phone | + +------+ + PCP | Unavailable | + +------+ + Encounter Details +--------+ + + + + | Date | Type | Department | Care Team | Description | +--------+ + + + + | 05/25/ | Hospital | [facility] | | | | 1991 | Encounter | [facility] LAB[facility]ORY | | | | | | [address] | | | | | | [place] | | | | | | [address] | | | | | | [phone] | | | +--------+ + + + [...] | | | | | [place] [address] | | | | | | [phone] | | | | | | | | +--------+ + + + + | 06/26/ | Office | Cardiology | Dora De La Torre | | | 2020 | Visit | | [address] | | | | | | [address] | | | | | | [place] [address] | | | | | | [phone] | | | | | | | | +--------+ + + + + documented as of this encounter Visit Diagnoses Not on filedocumented in this encounter"
--- OUTSIDE RECORDS SUMMARY | ~2020-05-03 | XMS | Encounter Summary ---
Demographics + + + | Address | [address] | | | [place] [address] | + + + | Home Phone [...] [place] | | | | | [address] | | + + + + + Care Team Providers + +------+ + | Care Exhibitions And Collections Manager Name | Role | Phone | [...] | Frandy Simons DO | [address] | | | | | of skin | [address] | [place], | | | | | sensation | [address] | [place] | | | | | Arthrodesis | [place], [place] | [address] | | | | | status Left | [address] | Phone: | | | | | leg | Phone: | [phone] | | | | | weakness | [phone] | Fax: | | | | | Procedures | Fax: | [phone] | | | | | MRI Lumbar | [phone] | | | | | | Spine [...] | | | | | Disturbance | Franyd Simons DO | [address] | | | | | of skin | [address] | [place], | | | | | sensation | [address] | [place] | | | | | Arthrodesis | [place] | [address] | | | | | status Left | [address] | Phone: | | | | | leg | Phone: | [phone] | | | | | weakness | [phone] | Fax: | | | | | Procedures | Fax: | [phone] | | | | | MRI Lumbar | [phone] | | | | | | Spine wo | | | | | | | Contrast | | | +--------+--------+ + + + + Encounter Details +--------+ + + + + | Date | Type | Department | Care Team | Description | +--------+ + + + + | 08/19/ | Hospital | [facility] | Frandy Teresa, | Status post lumbar | | 2013 | Encounter | MED CTR MRI [address] | DO [address] | spinal fusion; Left | | | | [address] [place], | [address] [place] | leg numbness; Left | | | | [place] [address] | [address] | leg weakness | | | | [phone] | | | +--------+ + + + [...] + + +---------+ + + | [place]-3 Fatty | Take 1,000 mg by | [...] [address] | | | | | | [place] [address] | | | | | | [phone] | | | | | | | | +--------+ + + + + | 06/26/ | Office | Cardiology | Dora De La Torre | | | 2019 | Visit | | [address] | | | | | | [address] | | | | | | [place] [address] | | | | | | [phone] | | | | | | | [...] the round structure with high T1 and Y9kgbhsy in the right L3 vertebral | | [...] + | MISCELLANEOUS LAB | | | [phone] | + +---------+ + + | MISCELANIOUS LAB | | | [phone] | + +---------+ + + documented in [...]
--- OUTSIDE RECORDS SUMMARY | ~2020-05-03 | XMS | Encounter Summary ---
Demographics + + + | Address | [address] | | | [place] [address] | + + + | Home Phone [...] [place] | | | | | [address] | | + + + + + Care Team Providers + +------+ + | Care Web Database Developer Name | Role | Phone [...] + + | 02/05/ | Telephone | [facility] | Ashley Chávez | Other (Patient | | 2020 | | CARDIOLOGY [place]ad, Outbound Sales Specialist | ) | | | | [address] | | | | | | [place] | | | | | | [address] | | | | | | [phone] | | | +--------+ + + + [...] t week . elephone Enco Ashley Wong, Outbound Sales Specialist - 02/06/2020 2:53 PM PDTPatient states that [...] Thank you! (sent to Dora Mendez) JDW:MANAGER PHARMACY-AAMA. doc umented in this encounter Plan of [...] [address] | | | | | | [place] [address] | | | | | | [phone] | | | | | | | | +--------+ + + + + | 06/26/ | Office | Cardiology | Dora De La Torre | | | 2019 | Visit | | [address] | | | | | | [address] | | | | | | [facility] [address] | | | | | | [phone] | | | | | | | | +--------+ + + + + documented as of this encounter Visit Diagnoses Not on filedocumented in this encounter
--- OUTSIDE RECORDS SUMMARY | ~2020-05-03 | XMS | Encounter Summary ---
Demographics + + + | Address | [address] | | | [place] [address] | + + + | Home Phone [...] [place] | | | | | [address] | | + + + + + Care Team Providers + +------+ + | Care Director Quality Assurance Name | Role | Phone | + [...] [place] | | | | | | [address] | | | | | | [phone] | | | +--------+ + + + [...] | | | | | [place] [address] | | | | | | [phone] | | | | | | | | +--------+ + + + + | 06/26/ | Office | Cardiology | Dora De La Torre | | | 2020 | Visit | | [address] | | | | | | [address] | | | | | | [place] [address] | | | | | | [phone] | | | | | | | | +--------+ + + + + documented as of this encounter Visit Diagnoses Not on filedocumented in this encounter"
--- OUTSIDE RECORDS SUMMARY | ~2020-05-03 | XMS | Encounter Summary ---
Demographics + + + | Address | [address] | | | [place] [address] | + + + | Home Phone [...] [place] | | | | | [address] | | + + + + + Care Team Providers + +------+ + | Care Mine Shifter Name | Role | Phone | + [...] + | 06/26/ | Telephone | [facility] | Frandy Teresa, | Other | | 2013 | | NEUROSURGERY [address] | DO [address] | | | | | [address] | [address] [place], [place] | | | | | [place], [place] | [id number] | | | | | [address] | | | | | | [phone] | | | +--------+ + + + [...] [address] | | | | | | [place] [address] | | | | | | [phone] | | | | | | | | +--------+ + + + + | 06/26/ | Office | Cardiology | Dora De La Torre | | | 2019 | Visit | | [address] | | | | | | [address] | | | | | | [place] [address] | | | | | | [phone] | | | | | | | | +--------+ + + + + documented as of this encounter Visit Diagnoses Not on filedocumented in this encounter"
--- OUTSIDE RECORDS SUMMARY | 2020-05-03 19:02 | XMS ---
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 Events No recent Security Events currently on file CRITERIA MET - [facility] - Has Care Guidelines - PDMP - [facility] - 2 Visits in 30 Days CARE PROVIDERS WAYNE CAMARGO Internal Medicine 09/07/2019-Current PHONE: [phone] Kenny Palafox DO [facility] Current PHONE: [phone] [facility] 01/31/2019-Current PHONE: [phone] Guidelines Source: [facility] Radha Negrete Guidelines Date: 03/13/2019 Care Coordination: Mental health services are being provided by [facility].\T\nbsp; Please contact [facility] with mental health concerns.\T\nbsp; [facility] \T\nbsp; Moshe: [phone]. Care History Medical/Surgical 04/29/2020 [facility] Patient requested new PCP, not happy with Dr. Camargo.\T\nbsp; Patient aware of [facility] appointment 04/30/2020. 04/22/2020 [facility] Patient had follow up scheduled for 04/25/[address] Camargo,but was canceled by doctor.\T\nbsp; Left voice mail for patient to reschedule follow up visit. 10/23/2019 [facility] - CHW CONTACTED JONATHAN AT [facility]- PATIENT DOES NOT MEET THE ACT TEAM REQUIREMENTS FOR SERVICES DUE TO DX. - CHW SUGGESTED TO HAVE GUARDIANSHIP REVIEWED FOR PATIENT DUE TO ONGOING MENTAL HEALTH CONCERNS AND ED VISITS. - JONATHAN STATED SHE WOULD LOOK INTO THIS WITH PATIENT CURRENT CASE MANAGEMENT TEAM. - JONATHAN CAN BE CONTACTED AT [phone]. E.D. VISIT COUNT (12 MO.) 22 [facility]. TOTAL 22 NOTE: Visits indicate total known visits. ED/UCC VISIT TRACKING (12 MO.) 05/03/2020 19:00 [facility] [place] TYPE: Emergency COMPLAINT: - RAPID HEART RATE 04/28/2020 18:43 [facility] [place] TYPE: Emergency COMPLAINT: - MEDICAL CLEARANCE DIAGNOSES: - Gastro-esophageal reflux disease without esophagitis - Allergy status to other drugs, medicaments and biological sub - Essential (primary) hypertension - Allergy status to sulfonamides status - Type 2 diabetes mellitus without complications - 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 - Hallucinations, unspecified - Encounter for other general examination 04/20/2020 17:25 [facility] [place] TYPE: Emergency [...] termite treater helper (current) drug therapy - Abrasion, left knee, [...] Gastro-esophageal reflux disease without esophagitis - Other detention (current) drug therapy - Delusional disorders 10/22/2019 16:37 [facility] [place] TYPE: Emergency COMPLAINT: - MEDICAL CLEARANCE DIAGNOSES: - Type 2 diabetes mellitus without complications - Gastro-esophageal reflux disease without esophagitis - Old myocardial infarction - 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 - Essential (primary) hypertension - Allergy status to sulfonamides status - Allergy status to other drugs, medicaments and biological sub - Encounter for other general examination 10/20/2019 20:02 [facility] [place] TYPE: Emergency COMPLAINT: - MEDICAL CLEARANCE DIAGNOSES: - Gastro-esophageal reflux disease without esophagitis - Type 2 diabetes mellitus without complications - Encounter for other general examination - 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 treater helper (current) drug [...] ischemic attack (TIA), and cere - 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 - Old myocardial infarction - Essential (primary) hypertension - Type 2 diabetes mellitus with hyperglycemia 10/11/2019 10:06 [facility] TYPE: Emergency COMPLAINT: - MEDICAL CLEARANCE DIAGNOSES: - Essential (primary) hypertension - Delusional disorders - Old myocardial infarction - Delusional disorders - Allergy status to sulfonamides status - Other detention (current) drug therapy - Schizoaffective disorder, unspecified 09/28/2019 13:19 [facility] [place] TYPE: Emergency COMPLAINT: - MEDICAL CLEARANCE DIAGNOSES: - Type 2 diabetes mellitus without complications - Allergy status to other drugs, medicaments and biological sub - Old myocardial infarction - Other detention (current) drug therapy - Allergy status to sulfonamides status - Gastro-esophageal reflux disease without esophagitis - Essential (primary) hypertension - Suicidal ideations - Encounter for other administrative examinations 09/26/2019 10:06 [facility] [place] TYPE: Emergency COMPLAINT: - MEDICAL CLEARANCE DIAGNOSES: - Other detention (current) drug therapy - Personal history of transient ischemic attack (TIA), and cere - Gastro-esophageal reflux disease without esophagitis - Allergy status to sulfonamides status - Old myocardial infarction - Schizoaffective disorder, unspecified - Allergy status to other drugs, medicaments and biological sub - Essential (primary) hypertension - 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 09/25/2019 13:35 [facility] [place] TYPE: Emergency COMPLAINT: - HEARING VOICES DIAGNOSES: - Type 2 diabetes mellitus without complications - Personal history of transient ischemic attack (TIA), and cere - Gastro-esophageal reflux disease without esophagitis - Schizoaffective disorder, unspecified - Suicidal ideations - 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 - Old myocardial infarction - Allergy status to sulfonamides status - Essential (primary) hypertension - Other detention (current) drug therapy - Allergy status to other drugs, medicaments and biological sub 09/18/2019 13:53 [facility] [place] TYPE: Emergency COMPLAINT: - MEDICAL CLEARANCE DIAGNOSES: - Type 2 diabetes mellitus without complications - Schizoaffective disorder, unspecified - Suicidal ideations - Allergy status to other drugs, medicaments and biological sub - Gastro-esophageal reflux disease without esophagitis - Old myocardial infarction - 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 - Essential (primary) hypertension - Rash and other nonspecific skin eruption - Allergy status to sulfonamides status - Other detention (current) drug therapy 09/18/2019 10:33 [facility] [place] TYPE: Emergency COMPLAINT: - SUICIDAL THOUGHTS, HEARING VOICES DIAGNOSES: - Disorder of urea cycle metabolism, unspecified - Other detention (current) drug therapy - Schizoaffective disorder, unspecified - Essential (primary) hypertension - Type 2 diabetes mellitus without complications - Gastro-esophageal reflux disease without esophagitis - Old myocardial infarction - Allergy status to sulfonamides status - Allergy status to other drugs, medicaments and biological sub - 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 09/06/2019 11:40 JAEL [...] DIAGNOSES: - Schizoaffective disorder, unspecified - Other detention (current) drug therapy - Type 2 diabetes [...] ischemic attack (TIA), and cere - 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 treater helper (current) drug [...] status to narcotic agent status - Other detention (current) drug therapy - Schizophrenia, unspecified 05/10/2019 14:24 [facility] [place] TYPE: Emergency COMPLAINT: - MEDICAL CLEARANCE DIAGNOSES: - Acquired absence of other specified parts of digestive tract - 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 [place] TYPE: Observation COMPLAINT: - SYNCOPE DIAGNOSES: - Gastro-esophageal reflux disease without esophagitis - Contact with and (suspected) exposure to other viral communic - Type 2 diabetes mellitus with hyperglycemia - Schizoaffective disorder, unspecified - Syncope and collapse - Allergy status to other drugs, medicaments and biological sub - Paroxysmal atrial fibrillation - 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 - Allergy status to sulfonamides status 05/16/2019 11:50 [facility] [place] TYPE: Longterm COMPLAINT: - SCHIZOAFFECTIVE D/O DIAGNOSES: - Schizoaffective disorder, unspecified [email or web address]
[2020-05-03] MEDS ORDERED: GLUCOPHAGE500 MG PO (19:10)
[2020-05-03] MEDS ORDERED: LOW DOSE ASPIRI81 MG PO (19:10)
[2020-05-03] MEDS ORDERED: PROTONIX40 MG PO (19:11)
--- NOTE | 2020-05-05 09:09 | EKG ---
[facility] [address] [place] [address] Signed Sinus rhythm with 1st degree AV block Left bundle branch block Abnormal ECG When compared with ECG of 20-APR-2020 17:28, No significant change was found Confirmed by GAYLE MUÑOZ MD ([id number]) on 05/05/2020 9:08:43 AM Electronically Signed By: GAYLE MUÑOZ MD 05/05/20 0909 PATIENT NAME: BERNARDA ALARCON AIDE Electrocardiogram DATE OF : 55 PHYSICIAN: GAYLE MUÑOZ MD REPORT #: [id number] REPORT IS CONFIDENTIAL AND NOT TO BE RELEASED WITHOUT AUTHORIZATION
== END 2020-05-03 20:39 | disposition home or self-care (01) ==
LOC: ED 19:00
DX: R00.2 Palpitations (principal); E11.65 Type 2 diabetes mellitus with hyperglycemia; I10 Essential (primary) hypertension; K21.9 Gastro-esophageal reflux disease without esophagitis; I25.2 Old myocardial infarction; Z88.2 Allergy status to sulfonamides; Z88.8 Allergy status to other drugs, medicaments and biological substances; Z79.899 Other long term (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; Z79.82 Long term (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; Z79.84 Long term (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 of 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
CPT/HCPCS: 71045; 80053; 83735; 84484; 85025; 93005; 93010; 99285-25

== ENCOUNTER 2020-05-06 06:04 | Emergency (ER) | payer MEDICARE ==
[~2020-05-06] VITALS: Ht 170.2 cm; Wt 90.7 kg
--- OUTSIDE RECORDS SUMMARY | ~2020-05-06 | XMS | Encounter Summary ---
Demographics + + + | Address | [address] | | | [place] [address] | + + + | Home Phone | | + + + | Preferred Language | Unknown | + + + | Marital Status | | + + + | Cheondoism Affiliation | 1013 | + + + | Race | Unknown | + + + | Ethnic Group | Unknown | + + + Author + + + | Author | [facility] | | | and [place] | + + + | Organization | [facility] | | | and [place] | + + + | Address | Unknown | + + + | Phone | Unavailable | + + + Support + + + + + | Name | Relationship | Address | Phone | + + + + + | Araceli Sibley | ECON | [place] | | | | | [address] | | + + + + + Care Team Providers + +------+ + | Care Director Acute Name | Role | Phone | + +------+ + | Natalee Andersen NP | PCP | | + +------+ + Reason for Visit +--------+--------+ + | Reason | Onset | Comments | | | Date | | +--------+--------+ + | Other | 08/05/ | | | | 2013 | | +--------+--------+ + Encounter Details +--------+ + + + + | Date | Type | Department | Care Team | Description | +--------+ + + + + | 08/05/ | Telephone | [facility] | Frandy Teresa, | Other | | 2013 | | NEUROSURGERY [address] | DO [address] | | | | | [address] | [address] [place], [place] | | | | | [place], [place] | [id number] | | | | | [address] | | | | | | [phone] | | | +--------+ + + + [...] + + documented as of this encounter Miscellaneous Notes Telephone Encounter - Megan Schreiber RN - 08/05/2014 10:49 AM PDTCalled pt to confirm that mail had been sent 07/30/14, tracking number given to pt for her to call her post office and verify the status of the mail. Pt verbalized understanding. elephone Encounter - Lashawn Metzger - 08/05/2014 10:35 AM Arti called to see if we are able to track her prescription refill that was terri d out to her on Tuesday07/30/14. She has not received it yet and thought that she should hav e received it by now. Andrey mented in this encounter Plan of Treatment +--------+ + + + + | Date | Type | Specialty | Care Team | Description | +--------+ + + + + | 05/29/ | Procedure | Cardiology | Dora De La Torre | | | 2019 | visit | | [address] | | | | | | [address] | | | | | | [place] [address] | | | | | | [phone] | | | | | | | | +--------+ + + + + | 06/26/ | Office | Cardiology | Dora De La Torre | | | 2019 | Visit | | [address] | | | | | | [address] | | | | | | [place] [address] | | | | | | [phone] | | | | | | | | +--------+ + + + + documented as of this encounter Visit Diagnoses Not on filedocumented in this encounter"
--- OUTSIDE RECORDS SUMMARY | ~2020-05-06 | XMS | Encounter Summary ---
Demographics + + + | Address | [address] | | | [place] [address] | + + + | Home Phone | | + + + | Preferred Language | Unknown | + + + | Marital Status | | + + + | Catholic Affiliation | 1013 | + + + | Race | Unknown | + + + | Ethnic Group | Unknown | + + + Author + + + | Author | [facility] | | | and [place] | + + + | Organization | [facility] | | | and [place] | + + + | Address | Unknown | + + + | Phone | Unavailable | + + + Support + + + + + | Name | Relationship | Address | Phone | + + + + + | Araceli Sibley | ECON | [place] | | | | | [address] | | + + + + + Care Team Providers + +------+ + | Care Medical Staff Assistant Name | Role | Phone | + +------+ + | Natalee Andersen NP | PCP | | + +------+ + Encounter Details +--------+ + + + + | Date | Type | Department | Care Team | Description | +--------+ + + + + | 06/25/ | Hospital | [facility] | Frandy Teresa, | Acquired | | 2014 | Encounter | MED CTR XRAY [address] | DO [address] | spondylolisthesis | | | | [place] | [address] [place], [place] | | | | | [place] [address] | [address] | | | | | [phone] | | | +--------+ + + + [...] +---------+ + + | atenolol | Take 50 mg by mouth | | 0 | 03/31/20 | | | (TENORMIN) 50 mg | 2 times daily. | | | 12 | 4 | [...] | 0 | 03/31/20 | | | (DAVE GARCIA) | Daily. | | | 12 | [...] + + + +---------+ + + | [place]-3 Fatty | Take 1,000 mg by | [...] [address] | | | | | | [place] [address] | | | | | | [phone] | | | | | | | | +--------+ + + + + | 06/26/ | Office | Cardiology | Dora De La Torre | | | 2020 | Visit | | [address] | | | | | | [address] | | | | | | [place] [address] | | | | | | [phone] | | | | | | | | +--------+ + + + + documented as of this encounter Visit Diagnoses + + | Diagnosis | + + | Acquired spondylolisthesis | + + documented in this encounter"
--- OUTSIDE RECORDS SUMMARY | ~2020-05-06 | XMS | Encounter Summary ---
Demographics + + + | Address | [address] | | | [place] [address] | + + + | Home Phone | | + + + | Preferred Language | Unknown | + + + | Marital Status | | + + + | Zoroastrianism Affiliation | 1013 | + + + | Race | Unknown | + + + | Ethnic Group | Unknown | + + + Author + + + | Author | [facility] | | | and [place] | + + + | Organization | [facility] | | | and [place] | + + + | Address | Unknown | + + + | Phone | Unavailable | + + + Support + + + + + | Name | Relationship | Address | Phone | + + + + + | Araceli Sibley | ECON | [place], [place] | | | | | [address] | | + + + + + Care Team Providers + +------+ + | 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 | Role | Phone | + +------+ + PCP | Unavailable | + +------+ + Encounter Details +--------+ + + + + | Date | Type | Department | Care Team | Description | +--------+ + + + + | 02/24/ | Hospital | [facility] | | | | 1997 | Encounter | MED CTR EMERGENCY | | | | | | [address] | | | | | | [place] | | | | | | [address] | | | | | | [phone] | | | +--------+ + + + [...] | | | | | | [place] [address] | | | | | | [phone] | | | | | | | | +--------+ + + + + | 06/26/ | Office | Cardiology | Dora De La Torre | | | 2020 | Visit | | [address] | | | | | | [address] | | | | | | [place] [address] | | | | | | [phone] | | | | | | | | +--------+ + + + + documented as of this encounter Visit Diagnoses Not on filedocumented in this encounter"
--- OUTSIDE RECORDS SUMMARY | ~2020-05-06 | XMS | Encounter Summary ---
Demographics + + + | Address | [address] | | | [place] [address] | + + + | Home Phone | | + + + | Preferred Language | Unknown | + + + | Marital Status | | + + + | Restorationist Affiliation | 1013 | + + + | Race | Unknown | + + + | Ethnic Group | Unknown | + + + Author + + + | Author | [facility] | | | and [place] | + + + | Organization | [facility] | | | and [place] | + + + | Address | Unknown | + + + | Phone | Unavailable | + + + Support + + + + + | Name | Relationship | Address | Phone | + + + + + | Araceli Sibley | ECON | [place] | | | | | [address] | | + + + + + Care Team Providers + +------+ + | Care Fire Observer Name | Role | Phone | + [...] + + | Closed | Specialty | Gastroenterol | Diagnoses | | Harri, | | | Services | ogy | Epigastric | [facility], | Tyrese Shelley MD | | | Required | | abdominal | Martha, | [address], | | | | | pain GERD | CUL[address] INSTALLER [address] | [address] | | | | | (gastroesoph | [address] | [place], | | | | | ageal reflux | [address] | [place] [address] | | | | | disease) | [place], | Phone: | | | | | Fatty liver | [place] [address] | [phone] | | | | | DM | Phone: | Fax: | | | | | (diabetes | [phone] | [phone] | | | | | mellitus) | Fax: | | | | | | (HCC) | [phone] | | +--------+ + + + + + Reason for Visit + + + | Reason | Comments | + + + | Gastroesophageal | epigastric pain | | Reflux | | + + + Encounter Details +--------+---------+ + + + | Date | Type | Department | Care Team | Description | +--------+---------+ + + + | 03/06/ | Office | [facility] | [facility], | Epigastric abdominal | | 2012 | Visit | GASTROENTEROLOGY | FORTUNATO Thomas [address] | pain (Primary Dx); | | | | [address] | [address] | GERD | | | | [address] [place], [place] | [place] | (gastroesophageal | | | | [address] | [address] | reflux disease); | | | | [phone] | | Fatty liver; DM | | | | | | (diabetes mellitus) | | | | | | (HCC) | +--------+---------+ + + + Social History [...] + + + | Blood Pressure | 130/80 | 03/06/2013 11:30 AM | | | | | PDT | | + + + + + | Pulse | 70 | 03/06/2013 11:30 AM | | | | | PDT | | + + + + + | Temperature | 37.3 C (99.1 F) | 03/06/2013 11:30 AM | | | | | PDT | | + + + + + | Respiratory Rate | 18 | 03/06/2013 11:30 AM | | | | | PDT | | + + + + + | Oxygen Saturation | - | - | | + + + + + | Inhaled Oxygen | - | - | | | Concentration | | | | + + + + + | Weight | 150.1 kg (331 lb) | 03/06/2013 11:30 AM | | | | | PDT | | + + + + + | Height | 170.2 cm (5' 7") | 03/06/2013 11:30 AM | | | | | PDT | | + + + + + | Body Mass Index | 51.84 | 03/06/2013 11:30 AM | | | | | PDT | | + + + + + documented in this encounter Patient Instructions Patient Instructions Martha King ARNP - 03/06/2013 12:12 PM PDTNASH Low fat diet Regular cardiovascular exercise- 30 minutes, 3-5 times per week Vitamin E 800 International Units everyday Cholesterol medications (STATINS) are safe Maintain normal cholesterol levels Avoid alcohol in excess Avoid marijuana Evaluation of liver function and appearance every 6 months if evidence of cirrhosis, or e very 12 months if not evidence of cirrhosis. documented in this encounter Progress Notes Martha King ARNP - 03/06/2013 11:55 AM PDTFormatting of this note might be differe nt from the original. Cindy Arndt is a 57 y.o. female referred by Basim Bolanos for evaluation and treatment of epigastric abdominal pain. History of present illness: She has developed epigastric abdominal pain. Pain first started 06/2012. Pain is intermitte nt. It has come up to 4-5 times per day. Now once every 2-3 days. Pain lasts from seconds to minutes. Nothing seems to cause or worsen pain. Pain is described as sharp and does not rad iate. Nothing has not seemed to make better. She was admitted over night to rule out cardiac component. All cardiac tests were negative. She does experience heartburn that is not associated with epigastric pain. She takes omepra zole daily and can have heartburn symptoms that require tums, despite the use of omeprazole. She does have nausea and bloating that can be associated with epigastric pain. Denies vomit ing. EGD was done about 5-[address] Saravanan Tsai, in [facility] [place]. Colonoscopy was done 05/[address] Hamlin in [facility] [place]. Allergies Allergen Reactions Demerol Duloxetine Erythromycin Fluoxetine Haloperidol Prochlorperazine Maleate Sulfa Antibiotics Topamax Past Medical History Diagnosis Date GERD (gastroesophageal reflux disease) Chronic lumbar pain Mononeuritis SCALP Hypertension Hyperlipidemia Diabetes mellitus Dermatitis Edema Obesity Bipolar 1 disorder PVC (premature ventricular contraction) Obstructive sleep apnea DDD (degenerative disc disease), lumbar Fatty liver disease, nonalcoholic Somatic dysfunction of spine, sacral Chest pain Hypothyroidism Past Surgical History Procedure Date Jorje placement tibia 2001 RIGHT Cholecystectomy 1997 Mastectomy, partial 1996 Hysterectomy 1991 TVH, Tonsillectomy Dilatation & curretage 1973 Family History Problem Relation Age of Onset High blood pressure Mother High blood pressure Father Cancer Sister cervical History Social History Marital Status: Single Spouse Name: N/A Number of Children: N/A Years of Education: N/A Occupational History Not on file. Social History Main Topics Smoking status: Never Smoker Smokeless tobacco: Never Used Alcohol Use: No Drug Use: No Sexually Active: Not on file Other Topics Concern Not on file Social History Narrative No narrative on file Review of systems: Constitutional:Denies any fevers, chills, or unintentional weight loss. Eyes:Complains of using glaucoma eye drops. Denies dry, burning, painful eyes Respiratory:Complains of shortness of breath. Denies wheezing or constant cough. Gastrointestinal:Complains of nausea, hemorrhoids, heartburn, and abdominal pain. Denies co nstipation, diarrhea, bloody or black stools, hematemesis, or dysphagia. Skin:Complains of skin rash. Neurological:Complains of numbness and tingling. Denies memory difficulties, muscle weaknes s, paralysis of arms or legs, epilepsy or seizure, or frequent bothersome and headaches ENT:Complains of ringing or buzzing in ears and hayfever. Denies hearing loss, hearing aids , constantly runny nose, nasal obstruction, dentures, or hoarseness. Cardiovascular:Denies chest pain, palpitations, or swelling to legs :Complains of urine incontinence. Denies painful urination, waking up on average more lazaro n once per night to urinate, bloody urine, or impotence Musculoskeletal:Complains of painful back and joints. Denies swollen joints. Psychiatric:Complains of anxiety. Denies depression. Endocrine:Denies enlarged thyroid Heme/lymph:Denies anemia or enlarged lymph glands. Physical exam: General: well developed, well nourished, in no acute distress. Head: normocephalic and atraumatic Eyes: Sclera clear Mouth: MMM Lungs: Clear to auscultate bilaterally and throughout Heart: regular rate and rhythm Abdomen: Soft, non tender, non distended, bowel tones positive times 4 quadrants, negative Mulugeta y's sign, negative rebound tenderness, no guarding, no hepatosplenomegaly palpated. Msk: symmetrical with no deformity, with normal posture and gait, normal strength. Extremities: no clubbing, cyanosis, edema, or deformity noted Neurologic: no focal deficits, cranial nerves II-XII grossly intact Skin: intact without lesions or rashes. Psych: alert and cooperative; normal mood and affect; normal attention span and concentration. Laboratory 01/22/2013: Na 137 K 4.5 Cl 100 CO2 27 BUN 15 Creatinine 0.62 Total Bili 0.3 AST 64 ALT 76 Alk Phos 106 Total Protein 6.2 Albumin 4.2 Assessment: 1. Epigastric abdominal pain Ambulatory referral to Gastroenterology 2. GERD (gastroesophageal reflux disease) Ambulatory referral to Gastroenterology 3. Fatty liver Ambulatory referral to Gastroenterology 4. DM (diabetes mellitus) Ambulatory referral to Gastroenterology Plan: Patient to have EGD for further evaluation.The procedural techniques, risks, indications, a nd alternatives were discussed. Among the risks, are perforation, bleeding, infection, veronica rgic/adverse reactions to medications, and cardiovascular complications. Each of these coul d result in hospitalization, additional procedures (including surgery), or other life threat ening complications. Patient verbalized understanding.Patient to call with any questions or concerns prior to procedure. Discussed fatty liver and treatment. Patient given handout. Discussed that best treatment for GERD is weight loss. Will follow up with results. Patient is to call with any question or concerns. Any fevers, chills, chest pain, SOB or other serious symptoms patient is to call the office or go to ER . Cc: Basim Bolanos Reviewed most recent labs, imaging, and procedures. documented in t his encounter Miscellaneous Notes Miscellaneous - [facility] - 03/06/2013 12:00 AM PDT iscellaneous - [facility] - 03/06/2013 12:00 AM PDTEle ctronically signed by Mariah Schulte at 04/09/2013 9:48 AM PDTMiscellaneous - [facility] - 03/06/2013 12:00 AM PDT d ocumented in this encounter Plan of Treatment +--------+ [...] [address] | | | | | | [place] [address] | | | | | | [phone] | | | | | | | | +--------+ + + + + | 06/26/ | Office | Cardiology | Dora De La Torre | | | 2019 | Visit | | [address] | | | | | | [address] | | | | | | [place] [address] | | | | | | [phone] | | | | | | | | +--------+ + + + + + + +--------+ + + | Name | Type | Priori | Associated Diagnoses | Order Schedule | | | | ty | | | + + +--------+ + + | Ambulatory referral | Outpatient | Routin | Epigastric | Expected: | | to Gastroenterology | Referral | e | abdominal pain GERD | 03/13/2013, Expires: | | | | | (gastroesophageal | 03/06/2014 | | | | | reflux disease) | | | | | | Fatty liver DM | | | | | | (diabetes mellitus) | | | | | | (HCC) | | + + +--------+ + + documented as of this encounter Visit Diagnoses + + | Diagnosis | + + | Epigastric abdominal pain - Primary Abdominal pain, epigastric | + + | GERD (gastroesophageal reflux disease) Esophageal reflux | + + | Fatty liver Other chronic nonalcoholic liver disease | + + | DM (diabetes mellitus) (HCC) Type II or unspecified type diabetes mellitus without | | mention of complication, not stated as uncontrolled | + + documented in this encounter
--- OUTSIDE RECORDS SUMMARY | ~2020-05-06 | XMS | Encounter Summary ---
Demographics + + + | Address | [address] | | | [place] [address] | + + + | Home Phone [...] [place] | | | | | [address] | | + + + + + Care Team Providers + +------+ + | Care Penal Officer Name | Role | Phone | + +------+ + | Thierry Fry MD | PCP | | + +------+ + Reason for Visit + +--------+ + | Reason | Onset | Comments | | | Date | | + +--------+ + | Medication Refill | 03/10/ | | | | 2014 | | + +--------+ + Encounter Details +--------+--------+ + + + | Date | Type | Department | Care Team | Description | +--------+--------+ + + + | 03/10/ | Refill | [facility] | Katharine Cardona PA-C | Medication Refill | | 2014 | | MEDICINE [address] | | | | | [address], | [place] [address] | | | | | [place] [address] | [phone] | | | | | [phone] | | | +--------+--------+ + + + Social History + +-------+ [...] [address] | | | | | | [place] [address] | | | | | | [phone] | | | | | | | | +--------+ + + + + | 06/26/ | Office | Cardiology | Dora De La Torre | | | 2020 | Visit | | [address] | | | | | | [address] | | | | | | [place] [address] | | | | | | [phone] | | | | | | | | +--------+ + + + + documented as of this encounter Visit Diagnoses + + | Diagnosis | + + | Essential hypertension - Primary Unspecified essential hypertension | + + documented in this encounter"
--- OUTSIDE RECORDS SUMMARY | ~2020-05-06 | XMS | Encounter Summary ---
Demographics + + + | Address | [address] | | | [place] [address] | + + + | Home Phone | | + + + | Preferred Language | Unknown | + + + | Marital Status | | + + + | Islam Affiliation | 1013 | + + + | Race | Unknown | + + + | Ethnic Group | Unknown | + + + Author + + + | Author | [facility] | | | and [place] | + + + | Organization | [facility] | | | and [place] | + + + | Address | Unknown | + + + | Phone | Unavailable | + + + Support + + + + + | Name | Relationship | Address | Phone | + + + + + | Araceli Sibley | ECON | [place] | | | | | [address] | | + + + + + Care Team Providers + +------+ + | Care Oriental Rug Stretcher Name | Role | Phone | + +------+ + | Adriano Patrick MD | PCP | | + +------+ + Reason for Visit +--------+--------+ + | Reason | Onset | Comments | | | Date | | +--------+--------+ + | Other | 08/28/ | Patient has questions about monitor. | | | 2018 | | +--------+--------+ + Encounter Details +--------+ + + + + | Date | Type | Department | Care Team | Description | +--------+ + + + + | 08/28/ | Telephone | [facility] | Ashley Chávez | Other (Patient has | | 2018 | | CARDIOLOGY [place], Auto Bumper Mechanic | questions about | | | | [address] | | monitor. ) | | | | [place] | | | | | | [address] | | | | | | [phone] | | | +--------+ + + + [...] Miscellaneous Notes Telephone Encounter - Ashley Chávez, Auto Bumper Mechanic - 08/28/2019 8:32 AM Rory foster says this monitor is pulling down her mind. Patient says she feels like her mental health is being weighed down by this monitor. I asked her if she could stand it for one more week to finish the monitoring, and patient s aid she was going to take a break from wearing it for a couple of days, I told patient it is up to her and she is free to do that if she chooses. Patient stated understanding. JPolloW:GAS TRANSFER OPERATOR-AAMA. [facility] umented in this encounter Plan of Treatment [...] [address] | | | | | | [place] [address] | | | | | | [phone] | | | | | | | | +--------+ + + + + | 06/26/ | Office | Cardiology | Dora De La Torre | | | 2020 | Visit | | [address] | | | | | | [address] | | | | | | [place] [address] | | | | | | [phone] | | | | | | | | +--------+ + + + + documented as of this encounter Visit Diagnoses Not on filedocumented in this encounter"
--- OUTSIDE RECORDS SUMMARY | ~2020-05-06 | XMS | Encounter Summary ---
Demographics + + + | Address | [address] | | | [place] [address] | + + + | Home Phone | | + + + | Preferred Language | Unknown | + + + | Marital Status | | + + + | Yazdanism Affiliation | 1013 | + + + | Race | Unknown | + + + | Ethnic Group | Unknown | + + + Author + + + | Author | [facility] | | | and [place] | + + + | Organization | [facility] | | | and [place] | + + + | Address | Unknown | + + + | Phone | Unavailable | + + + Support + + + + + | Name | Relationship | Address | Phone | + + + + + | Araceli Sibley | ECON | [place], [place] | | | | | [address] | | + + + + + Care Team Providers + +------+ + | Care Pole Maker Name | Role | Phone | + +------+ + PCP | Unavailable | + +------+ + Encounter Details +--------+ + + + + | Date | Type | Department | Care Team | Description | +--------+ + + + + | 03/13/ | Hospital | [facility] | | | | 1996 - | Encounter | MED CTR GENERIC OP | | | | | | CONV DEPT [address] | | | | 03/21/ | | [place], | | | | 1996 | | [place] [address] | | | | | | [phone] | | | +--------+ + + + [...] [address] | | | | | | [place] [address] | | | | | | [phone] | | | | | | | | +--------+ + + + + | 06/26/ | Office | Cardiology | Dora De La Torre | | | 2019 | Visit | | [address] | | | | | | [address] | | | | | | [place] [address] | | | | | | [phone] | | | | | | | | +--------+ + + + + documented as of this encounter Visit Diagnoses Not on filedocumented in this encounter"
--- OUTSIDE RECORDS SUMMARY | ~2020-05-06 | XMS | Encounter Summary ---
Demographics + + + | Address | [address] | | | [place] [address] | + + + | Home Phone [...] [place], [place] | | | | | [address] | | + + + + + Care Team Providers + +------+ + | Care Staff Reporter Name | Role | Phone | + +------+ + PCP | Unavailable | + +------+ + Encounter Details +--------+ + + + + | Date | Type | Department | Care Team | Description | +--------+ + + + + | 12/27/ | Hospital | [facility] | | | | 1995 | Encounter | MED CTR LABORATORY | | | | | | [address] | | | | | | [place] | | | | | | [address] | | | | | | [phone] | | | +--------+ + + + [...] | | | | | [place] [address] | | | | | | [phone] | | | | | | | | +--------+ + + + + | 06/26/ | Office | Cardiology | Dora De La Torre | | | 2020 | Visit | | [address] | | | | | | [address] | | | | | | [place] [address] | | | | | | [phone] | | | | | | | | +--------+ + + + + documented as of this encounter Visit Diagnoses Not on filedocumented in this encounter"
--- OUTSIDE RECORDS SUMMARY | ~2020-05-06 | XMS | Encounter Summary ---
Demographics + + + | Address | [address] | | | [place] [address] | + + + | Home Phone [...] [place] | | | | | [address] | | + + + + + Care Team Providers + +------+ + | Care Health Program Manager Name | Role | Phone | [...] | | | spondylolist | | [address] | | | | | hesis | | [place], | | | | | Spinal | | [place] [address] | | | | | stenosis, | | Phone: | | | | | lumbar | | [phone] | | | | | region, | | Fax: | | | | | without | | [phone] | | | | | neurogenic | [...] + + | 07/02/ | Surgery | [facility] | Frandy Teresa, | MIS L5-S1 | | 2013 | | MED CTR OR INTRA OP | DO [address] | TRANSFORAMINAL | | | | [address] | [address] [place], [place] | LUMBAR INTERBODY | | | | [place] | [id number] | FUSION | | | | [address] | | | | | | [phone] | | | +--------+---------+ + + + [...] might be different fro m the original. [facility] DISCHARGE SUMMARY PATIENT NAME: Cindy [...] Stable for discharge to SNF. DISPOSITION: SNF ([facility]) DISCHARGE MEDICATIONS Medications prior to admission [...] Take 15 mg by mouth nightl y. [place]-3 Fatty Acids (FISH OIL CONCENTRATE) 1000 MG [...] + + + +---------+ + + | [place]es[place]-3 Fatty | Take 1,000 mg by | [...] Lynn PA-C - 07/04/2014 7:43 AM PDT [facility] PROGRESS NOTE Pt. Name/Age/: Cindy Arndt 58 y.o. 1955 Med. Record Number: [id number] Date of admission: 07/02/2014 Subjective: The patient [...] home medications. D/C plan: Home tomorrow with [facility]. D/c mari drain and riley cath today. D/c chief service dispatcher. Patient Active Problem List Diagnosis LUMBAR DISC [...] signed by: Chris Nicole, 07/04/2014 7:45 [facility] Chris Lynn PA-C - 07/03/2014 7:13 AM PDT . [facility] PROGRESS NOTE Pt. Name/Age/: Cindy Arndt 58 y.o. 1955 Med. Record Number: [id number] Date of admission: 07/02/2014 Subjective: The patient [...] PDTDreyFrandy tim DO - 07/02/2014 11:15 AM [id number] [facility] [address] [place] [id number] FAX: NEUROSURGERY HISTORY AND PHYSICAL EXAMINATION CHIEF [...] Take 15 mg by mouth nigh tlgaston. 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 CRANIAL NERVES: II: Acuity is [...] Intrinsics 5 5 Ulnar Intrinsics [address] Strength 5 5 Hip Flexion 5 4* [...] documented in this en counter Procedure Notes [facility] - 07/12/2014 12:00 AM PDT 14 1:45 PM [facility] - 07/04/2014 12:00 AM PDT [facility] - 07/02/2014 12:00 AM PDT documented in this encounter Miscellaneous Notes Plan of Care - [facility] - 07/12/2014 12:00 AM PDT iscellaneous - [facility] 07/12/2014 12:00 AM PDTElec tronically signed by Mariah Schulte at 07/12/2014 1:45 PM PDTMiscellaneous - [facility] - 07/12/2014 12:00 AM PDT i scellaneous - [facility] - 07/12/2014 12:00 AM PDT lan of [...] and I will be going to a residential as I have 16 steps to my [...] TBD) Equipment Recommendations: tub bench;hand held shower head;athlete marketing agent;comfort height toilet ( pt. has all necessary [...] might be different fro m the original. [facility] FACILITY TRANSFER ORDERS Patient Name: Cindy Arndt Patient : 1955 Gender: female Date of Admission: 07/02/2014 Date of Discharge: 07/05/2014 Admitting Provider: Frandy Teresa DO Discharging Provider: Chris Nicole PA-C Consultants: none PCP: Natalee Andersen [facility] transferring to: [facility] Provider after transfer: PCP and Dr. Frandy Teresa CODE STATUS: [x] Attempt CPR [] Do not resuscitate If patient is pulseless and not breathing, RN/INTERNAL COMBUSTION ENGINEER may pronounce . Advanced Directives included: [] [...] for this patient. Diet: [] As tolerated SHIPPING ROOM SUPERVISOR may upgrade or downgrade diet as condition Indicates. [x] RN may downgrade diet as indicated. Type: [] Continue current diet of: Diet and Supplements Diet DIET CONSISTENT CARBOHYDRATE Number of Occurrences: -1 Days [] Other: Consistency/Precautions: [] Whole [] Thin Liquids [] Cut-up [] [place] Thick [] Advanced Chopped [] Honey Thickened [] Chopped [] Advanced Ground [] 1:1 feedings [] Ground/Pureed [] Other: Tube Feedings: [] PEG [] GT [] JT [] NGT [] Formula type: (Network Control Operator may change/substitute if indicated). [] Continuous Rate: [...] & Management for: ____same as above [] SHIPPING ROOM SUPERVISOR Evaluation &Management for: [] Other: Wound/Skin Care: [...] tablet 1-2 tablets Take 1-2 tablets by [facility] every 4 hours as needed for Pain. [...] Take 15 mg by mouth ni ghtly. [place]-3 Fatty Acids (FISH OIL CONCENTRATE) 1000 MG [...] Chris Nicole PA-C, certify that post hospital group home care is medically nec essary on a [...] tolerate progressive walking and doing stairs [facility] hospital stay due to multiple pain c/o. Attempted to see pt. 1145, however had just rec eived pain medication and requested PT return, SPL 9/10. At 1205 pt contacted PT for assist OOB due to left LE spasms and need for position change. Sitting at EOB on arrival, SANITATION TRUCK CLEANER pres ent. Pt. donned LSO brace, stood [...] of endurance. When patient is walking in [facility] with a regular FWW she has to stop frequently and states she feels very weak, like sh e may fall. Patient lives alone. Outpatient prescriptions are filled at [facility] in [facility]. Electronically signed by: Franca Narvaez RN 07/05/2014 10:43 lan of [facility] Layne Rivers - 07/05/2014 10:39 AM PDTFaxed referral to Gabriela Stout and Lidia Tran. [place] : [id number] and [place]: [id number] Electronically signed by: Layne Collado 07/05/2014 10:40 Received a call from [facility]. They can accept Cindy. Received a call from [facility] and they can't accept Cindy. Tanna from [facility] called and they don't have any beds at this time Electronically signed by: Layne Collado 07/05/2014 12:22 Started the SNF packet. Electronically signed by: Layne Collado 07/05/2014 12:56 lan of [facility] Sandhya Benites RN - 07/05/2014 5:14 [...] TBD) Equipment Recommendations: tub bench;hand held shower head;athlete marketing agent;comfort height toilet ( pt. has all necessary equipment) Planned Interventions: ADL retraining;transfer training Patient Status/Goals Reflects last filed data of patient status; may be from multiple contributors. Grooming: Status: did not occur today Assist: Utilizes: STG: Status: New Goal:modified independent LTG: Status: Goal: UE Dressing: Status: SBA Assist: Utilizes: STG: Status: Goal: LTG: Status: Goal: LE Dressing: Status: SBA Utilizes: athlete marketing agent STG: Status: New Goal: modified independent LTG: [...] in a.m. Physical Therapy will follow Cindy Arntd daily until discharge from therapy or disc [...] bed mobil ity. Pt has been using STRUCTURAL METAL FABRICATOR APPRENTICE and pain pills during the night. Zofran [...] by herself in a small apartment in [place]. Patient states she has her apartment set [...] to come from [facility] [place]. She states the Said she might benefit fr Home Health upon discharge. She would like me to contact [facility] to giv e them a heads up. I called and spoke to Summer at [facility] , told her patients PCP i s [...] Pt. resting in bed on arrival, used STRUCTURAL METAL FABRICATOR APPRENTICE x 2 during session. SPL 5/10. Pt. 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 Sidelying to sit [...] TBD) Equipment Recommendations: tub bench;hand held shower head;athlete marketing agent;comfort height toilet ( pt. has all necessary [...] & Review . Outcome: Progressing Pt using STRUCTURAL METAL FABRICATOR APPRENTICE and PO pain pills, c/o numbness on [...] and on a continuous oximeter for her STRUCTURAL METAL FABRICATOR APPRENTICE. She was unable to do her IS because o f the medications. She has the IS at bedside with a goal of 2400. She did not require additi onal respiratory care throughout the evening. p Note - Frandy Teresa, DO - 07/02/2014 2:25 PM PDTDATE: 07/02/2014 SURGEON: Frandy Teresa MD. LAY HEALTH ADVOCATE: ZANE Oh PREOPERATIVE DIAGNOSES 1. Spondylolisthesis, L5-S1. [...] x 26 mm Capstone PEEK cage from [employer] was chosen. It was filled with Infus [...] Note Cindy Arndt 58 y.o. female 1955 [id number] Proc. Date 07/02/2014 Preop Dx Spondylolisthesis L5-S1 Postop Dx same Procedure Procedure(s):MIS L5-S1 TRANSFORAMINAL LUMBAR INTERBODY FUSION Anesthesia General Surgeon Frandy Teresa DO Nurse Obgyn ZANE Oh EBL 100 mL Findings Findings [...] [address] | | | | | | [place] [address] | | | | | | [phone] | | | | | | | | +--------+ + + + + | 06/26/ | Office | Cardiology | Dora De La Torre | | | 2019 | Visit | | [address] | | | | | | [address] | | | | | | [place] [address] | | | | | | [phone] | | | | | | | [...] + | [facility] | [address] | [place], [place] | [phone] | | [facility] | | [address] | | | - LABORATORY | | | | + + + + + | [facility] | [address] | [place] | | | [facility] | | [address] [place] [address] | | | - LABORATORY | | [...] + | [facility] | [address] | [place] | [phone] | | [facility] | | [address] | | | - LABORATORY | | | | + + + + + | [facility] | [address] | [place] | | | [facility] | | [address], [place] | | | - LABORATORY | | [...] | | POC | | | [facility] | | | | | | MEDICAL [...] + | [facility] | [address] | [place] | [phone] | | [facility] | | [address] | | | - LABORATORY | | | | + + + + + | [facility] | [address] | [place], [place] | | | [facility] | | [address] | | | - LABORATORY [...] + | [facility] | [address] | [place], [place] | [phone] | | [facility] | | [address] | | | - LABORATORY | | | | + + + + + | [facility] | [address] | [place], [place] | | | [facility] | | [address], [place] | | | - LABORATORY | | [...] [address] | [place] | [phone] | | [facility] | | [address] | | | - LABORATORY | | | | + + + + + | [facility] | [address] | [place] | | | [facility] | | [address], [place] | | | - LABORATORY | | [...] + | [facility] | [address] | [place] | [phone] | | [facility] | | [address] | | | - LABORATORY | | | | + + + + + | [facility] | [address] | [place], [place] | | | [facility] | | [address], [place] | | | - LABORATORY | | [...] [address] | [place] | [phone] | | [facility] | | [address] | | | - LABORATORY | | | | + + + + + | [facility] | [address] | [place] | | | [facility] | | [address] | | | - LABORATORY [...] + | [facility] | [address] | [place] | [phone] | | [facility] | | [address] | | | - LABORATORY | | | | + + + + + | [facility] | [address] | [place] | | | [facility] | | [address], [place] | | | - LABORATORY | | [...] + | [facility] | [address] | [place] | [phone] | | [facility] | | [address] | | | - LABORATORY | | | | + + + + + | [facility] | [address] | [place], [place] | | | [facility] | | [address] | | | - LABORATORY | [...] | of hardware for posterior fusion from G5iayqaao S1 with interbody hardware at L5-S1. The [...] + | MISCELLANEOUS LAB | | | [phone] | + +---------+ + + | MISCELANIOUS LAB | | | [phone] | + +---------+ + + POC Glucose [...] + | [facility] | [address] | [place], [place] | [phone] | | [facility] | | [address] | | | - LABORATORY | | | | + + + + + | [facility] | [address] | [place] | | | [facility] | | [address] [place] [address] | | | - LABORATORY | | [...] + | [facility] | [address] | [place] | [phone] | | [facility] | | [address] | | | - LABORATORY | | | | + + + + + | [facility] | [address] | [place] | | | [facility] | | [address], [place] | | | - LABORATORY | | [...] + | [facility] | [address] | [place] | [phone] | | [facility] | | [address] | | | - LABORATORY | | | | + + + + + | [facility] | [address] | [place] | | | [facility] | | [address], [place] | | | - LABORATORY | | [...] + | [facility] | [address] | [place], [place] | [phone] | | [facility] | | [address] | | | - LABORATORY | | | | + + + + + | [facility] | [address] | [place], [place] | | | [facility] | | [address] | | | - LABORATORY [...] [address] | [place] | [phone] | | [facility] | | [address] | | | - LABORATORY | | | | + + + + + | [facility] | [address] | [place] | | | [facility] | | [address], [place] | | | - LABORATORY | | [...] St | [place] | | | [facility] | | [address] | | | - BLOOD BANK | [...] mLs | | Surgical | | 1:200,000 0.25-1:616854 % | | 14 12:42 | | [...]
--- OUTSIDE RECORDS SUMMARY | ~2020-05-06 | XMS | Encounter Summary ---
Demographics + + + | Address | [address] | | | [place] [address] | + + + | Home Phone | | + + + | Preferred Language | Unknown | + + + | Marital Status | Single | + + + | Mosque Affiliation | Unknown | + + + [...] [place] | | | | | [address] | | + + + + + Care Team Providers + +------+ + | Care Gold Leaf Laborer Name | Role | Phone | + [...] [id number] | | | | | | [place], [place] | | | | | | [address] | | | | | | [phone] | | | +--------+ + + + [...] | + + + + + | [facility] | [address] | [place] [address] | | | PATHOLOGY | [address] [...] Re | | | | | | [address] | | | | + + + + + + + + | Specimen | + + | | + + + + + + + | Performing | Address | City/State/Zipcode | Phone Number | | Organization | | | | + + + + + | [facility] | [address] | [place] [address] | | | PATHOLOGY | [address] [...] Re | | | | | | 365051 | | | | + + + + + + + + | Specimen | + + | | + + + + + + + | Performing | Address | City/State/Zipcode | Phone Number | | Organization | | | | + + + + + | [facility] | [address] | [place] [address] | | | PATHOLOGY | [address] [...] Re | | | | | | [address] | | | | + + + + + + + + | Specimen | + + | | + + + + + + + | Performing | Address | City/State/Zipcode | Phone Number | | Organization | | | | + + + + + | [facility] | [address] | [place] [address] | | | PATHOLOGY | [address] [...] Re | | | | | | 476553 | | | | + + + + + + + + | Specimen | + + | | + + + + + + + | Performing | Address | City/State/Zipcode | Phone Number | | Organization | | | | + + + + + | [facility] | [address] | [place] [address] | | | PATHOLOGY | [address] | | | + + + + + documented in this encounter Visit Diagnoses Not on filedocumented in this encounter"
--- OUTSIDE RECORDS SUMMARY | ~2020-05-06 | XMS | Encounter Summary ---
Demographics + + + | Address | [address] | | | [place] [address] | + + + | Home Phone [...] [place] | | | | | [address] | | + + + + + Care Team Providers + +------+ + | Care Enterprise Resource Analyst Name | Role | Phone | + +------+ + PCP | Unavailable | + +------+ + Encounter Details +--------+ + + + + | Date | Type | Department | Care Team | Description | +--------+ + + + + | 04/27/ | Hospital | [facility] | Sage Garza MD | | | 2001 | Encounter | HOSPITAL EMERGENCY | | | | | | CENTER [address] | [address] [place], [place] | | | | | | [address] | | | | | | [phone] | | | +--------+ + + + [...] | | | | | [place] [address] | | | | | | [phone] | | | | | | | | +--------+ + + + + | 06/26/ | Office | Cardiology | Dora De La Torre | | | 2020 | Visit | | [address] | | | | | | [address] | | | | | | [place] [address] | | | | | | [phone] | | | | | | | | +--------+ + + + + documented as of this encounter Visit Diagnoses Not on filedocumented in this encounter"
--- OUTSIDE RECORDS SUMMARY | ~2020-05-06 | XMS | Encounter Summary ---
Demographics + + + | Address | [address] | | | [place] [address] | + + + | Home Phone [...] [place] | | | | | [address] | | + + + + + Care Team Providers + +------+ + | Care Minibus Driver Name | Role | Phone | [...] | 01/02/ | Telephone | [facility] | Frandy Teresa, | Other (6m x-ray ) | | 2015 | | NEUROSURGERY [address] | DO [address] | | | | | [address] | [address] [place], [place] | | | | | [place], [place] | [id number] | | | | | [address] | | | | | | [phone] | | | +--------+ + + + [...] for review. The order was faxed to [facility] today. She will let us know [...] [address] | | | | | | [place] [address] | | | | | | [phone] | | | | | | | | +--------+ + + + + | 06/26/ | Office | Cardiology | Dora De La Torre | | | 2019 | Visit | | [address] | | | | | | [address] | | | | | | [place] [address] | | | | | | [phone] | | | | | | | | +--------+ + + + + documented as of this encounter Visit Diagnoses Not on filedocumented in this encounter"
--- OUTSIDE RECORDS SUMMARY | ~2020-05-06 | XMS | Encounter Summary ---
Demographics + + + | Address | [address] | | | [place] [address] | + + + | Home Phone | | + + + | Preferred Language | Unknown | + + + | Marital Status | Single | + + + | Jewish Affiliation | Unknown | + + + | Race | White | + + + | Ethnic Group | Not or | + + + Author + + + | Author | [facility] | + + + | Organization | [facility] | + + + | Address | Unknown | + + + | Phone | Unavailable | + + + Support + + + + + | Name | Relationship | Address | Phone | + + + + + | Kelsy Bautista | ECON | [address] | | | | | [place] | | | | | [address] | | + + + + + Care Team Providers + +------+ + | Care Machinist Mate Name | Role | Phone | [...] | | | | | | [place], | | | | | | [place] [address] | | | | | | [phone] | | | +--------+ + + + [...] | | + +---------+ + + | [facility] DEPARTMENT OF | | | | | RADIOLOGY | | | | + +---------+ + + documented in this encounter Visit Diagnoses Not on filedocumented in this encounter"
--- OUTSIDE RECORDS SUMMARY | ~2020-05-06 | XMS | Encounter Summary ---
Demographics + + + | Address | [address] | | | [place] [address] | + + + | Home Phone [...] [place], [place] | | | | | [address] | | + + + + + Care Team Providers + +------+ + | Care Lube Worker Name | Role | Phone | + +------+ + PCP | Unavailable | + +------+ + Encounter Details +--------+ + + + + | Date | Type | Department | Care Team | Description | +--------+ + + + + | 02/16/ | Hospital | [facility] | | | | 1994 | Encounter | MED CTR LABORATORY | | | | | | [address] | | | | | | [place] | | | | | | [address] | | | | | | [phone] | | | +--------+ + + + [...] | | | | | [place] [address] | | | | | | [phone] | | | | | | | | +--------+ + + + + | 06/26/ | Office | Cardiology | Dora De La Torre | | | 2020 | Visit | | [address] | | | | | | [address] | | | | | | [place] [address] | | | | | | [phone] | | | | | | | | +--------+ + + + + documented as of this encounter Visit Diagnoses Not on filedocumented in this encounter"
--- OUTSIDE RECORDS SUMMARY | ~2020-05-06 | XMS | Encounter Summary ---
Demographics + + + | Address | [address] | | | [place] [address] | + + + | Home Phone [...] [place] | | | | | [address] | | + + + + + Care Team Providers + +------+ + | Care Lan Manager Name | Role | Phone | [...] + | 07/08/ | Telephone | [facility] | Frandy Teresa, | Other (post op call | | 2013 | | NEUROSUR[address]ERY [address] | DO [address] | ) | | | | [address] [facility] [address] | [address] [place], [place] | | | | | [place], [place] | [id number] | | | | | [address] | | | | | | [phone] | | | +--------+ + + + [...] Aragon Cert MA - 07/08/2014 11:04 AM [facility] SHAYNE ARAGON documented in this encounter Plan [...] [address] | | | | | | [place] [address] | | | | | | [phone] | | | | | | | | +--------+ + + + + | 06/26/ | Office | Cardiology | Dora De La Torre | | | 2020 | Visit | | [address] | | | | | | [address] | | | | | | [place] [address] | | | | | | [phone] | | | | | | | | +--------+ + + + + documented as of this encounter Visit Diagnoses Not on filedocumented in this encounter"
--- OUTSIDE RECORDS SUMMARY | ~2020-05-06 | XMS | Encounter Summary ---
Demographics + + + | Address | [address] | | | [place] [address] | + + + | Home Phone [...] [place] | | | | | [address] | | + + + + + Care Team Providers + +------+ + | Care Timing Adjuster Name | Role | Phone | + [...] + + | 08/15/ | Documentati | [facility] | Katharine Moncada, | Other (urgent | | 2019 | on | CARDIOLOGY [place] | Technologist | report) | | | | [address] | | | | | | [place] | | | | | | [address] | | | | | | [phone] | | | +--------+ + + + [...] | | | | | [place] [address] | | | | | | [phone] | | | | | | | | +--------+ + + + + | 06/26/ | Office | Cardiology | Dora De La Torre | | | 2020 | Visit | | [address] | | | | | | [address] | | | | | | [place] [address] | | | | | | [phone] | | | | | | | | +--------+ + + + + documented as of this encounter Visit Diagnoses Not on filedocumented in this encounter"
--- OUTSIDE RECORDS SUMMARY | ~2020-05-06 | XMS | Encounter Summary ---
Demographics + + + | Address | [address] [facility] [address] | | | [place] [address] | + + + | Home Phone | | + + + | Preferred Language | Unknown | + + + | Marital Status | Single | + + + | Yazdanism Affiliation | Unknown | + + + [...] [place] | | | | | [address] | | + + + + + Care Team Providers + +------+ + | Care Photography And Prints Curator Name | Role | Phone | [...] | Transcriptions | + + | Interface, Director Of Psychology In - 11/04/2006 3:03 AM PST | | [address] | | [place], [place] [address] [facility] | | ClinicsOPERATION RECORDMed Rec No.: [...] skin retractor was put in place. The [place] elevators wereused to separate the | | [...]
--- OUTSIDE RECORDS SUMMARY | ~2020-05-06 | XMS | Encounter Summary ---
Demographics + + + | Address | [address] | | | [place] [address] | + + + | Home Phone [...] Author + + + | Author | [facility] | + + + | Organization | [facility] | + + + | Address | Unknown | + + + | Phone | Unavailable | + + + Support + + + + + | Name | Relationship | Address | Phone | + + + + + | Kelsy Bautista | E[address] | [address] | | | | | [place] | | | | | [address] | | + + + + + Care Team Providers + +------+ + | Care Broadcast Engineer Name | Role | Phone | [...] [address] | | | | | | [place], [place] | | | | | | [address] | | | +--------+ + + + [...]
--- OUTSIDE RECORDS SUMMARY | ~2020-05-06 | XMS | Encounter Summary ---
Demographics + + + | Address | [address] | | | [place] [address] | + + + | Home Phone [...] [place], [place] | | | | | [address] | | + + + + + Care Team Providers + +------+ + | Care Finish Mill Operator Name | Role | Phone | + +------+ + PCP | Unavailable | + +------+ + Encounter Details +--------+ + + + + | Date | Type | Department | Care Team | Description | +--------+ + + + + | 02/02/ | Hospital | [facility] | | | | 1997 - | Encounter | MED CTR GENERIC PSY | | | | | | CONV DEPT [address] | | | | 02/05/ | | [address], | | | | 1997 | | [place] [address] | | | | | | [phone] | | | +--------+ + + + [...] [address] | | | | | | [place] [address] | | | | | | [phone] | | | | | | | | +--------+ + + + + | 06/26/ | Office | Cardiology | Dora De La Torre | | | 2019 | Visit | | [address] | | | | | | [address] | | | | | | [place] [address] | | | | | | [phone] | | | | | | | | +--------+ + + + + documented as of this encounter Visit Diagnoses Not on filedocumented in this encounter"
--- OUTSIDE RECORDS SUMMARY | ~2020-05-06 | XMS | Encounter Summary ---
Demographics + + + | Address | [address] | | | [place] [address] | + + + | Home Phone [...] [place] | | | | | [address] | | + + + + + Care Team Providers + +------+ + | Care Computer Specialist Name | Role | Phone | [...] + + | 08/14/ | Documentati | [facility] | Katharine Moncada, | Other (urgent | | 2019 | on | CARDIOLOGY [place] | Technologist | report) | | | | [address] | | | | | | [place] | | | | | | [address] | | | | | | [phone] | | | +--------+ + + + [...] encounter Progress Notes Katharine Moncada, Technologist - 08/14/2019 7:53 AM PDTReceived urgent report 08/14/19 Pt had a self triggered urgent report 08/13/19 at 10:31 99 BPM 30 day monitor was placed 08/09/19 Medications: none Will continue to monitor Please see attachment [...] | | | | | [place] [address] | | | | | | [phone] | | | | | | | | +--------+ + + + + | 06/26/ | Office | Cardiology | Dora De La Torre | | | 2020 | Visit | | [address] | | | | | | [address] | | | | | | [place] [address] | | | | | | [phone] | | | | | | | | +--------+ + + + + documented as of this encounter Visit Diagnoses Not on filedocumented in this encounter"
--- OUTSIDE RECORDS SUMMARY | ~2020-05-06 | XMS | Encounter Summary ---
Demographics + + + | Address | [address] | | | [place] [address] | + + + | Home Phone [...] [place] | | | | | [address] | | + + + + + Care Team Providers + +------+ + | Care Advertising Account Executive Name | Role | Phone | [...] [address] | [address] [place], [place] | fusion | | | | [place], [place] | [address] | | | | | [address] | | | | | | [phone] | | | +--------+ + + + [...] [address] | | | | | | [place] [address] | | | | | | [phone] | | | | | | | | +--------+ + + + + | 06/26/ | Office | Cardiology | Dora De La Torre | | | 2019 | Visit | | [address] | | | | | | [address] | | | | | | [place] [address] | | | | | | [phone] | | | | | | | | +--------+ + + + + documented as of this encounter Visit Diagnoses + + | Diagnosis | + + | Lumbago - Primary | + + | S/P lumbar fusion Arthrodesis status | + + documented in this encounter"
--- OUTSIDE RECORDS SUMMARY | ~2020-05-06 | XMS | Encounter Summary ---
Demographics + + + | Address | [address] | | | [place] [address] | + + + | Home Phone [...] [place] | | | | | [address] | | + + + + + Care Team Providers + +------+ + | Care Senior Oracle Soa Developer Name | Role | Phone | + +------+ + | Basim Bolanos MD | PCP | | + +------+ + Reason for Visit + +--------+ + | Reason | Onset | Comments | | | Date | | + +--------+ + | Medication Refill | 02/21/ | | | | 2012 | | + +--------+ + Encounter Details +--------+--------+ + + + | Date | Type | Department | Care Team | Description | +--------+--------+ + + + | 02/21/ | Refill | [facility] | Deon Gonzales | Medication Refill | | 2012 | | SLEEP DISORDER [address] | MD [address] | | | | | [address] | [address] | | | | | [place] [address] | [place] [address] | | | | | [phone] | [phone] | | | | | | | [...] this encounter Miscellaneous Notes Telephone Encounter - Gail Cadet - 02/22/2013 9:32 AM [facility] documented in this encount er Plan of Treatment [...] | | | | | [place] [address] | | | | | | [phone] | | | | | | | | +--------+ + + + + | 06/26/ | Office | Cardiology | Dora De La Torre | | | 2020 | Visit | | [address] | | | | | | [address] | | | | | | [place] [address] | | | | | | [phone] | | | | | | | | +--------+ + + + + documented as of this encounter Visit Diagnoses + + | Diagnosis | + + | Obstructive sleep apnea (adult) (pediatric) - Primary | + + documented in this encounter"
--- OUTSIDE RECORDS SUMMARY | ~2020-05-06 | XMS | Encounter Summary ---
Demographics + + + | Address | [address] | | | [place] [address] | + + + | Home Phone [...] [place], [place] | | | | | [address] | | + + + + + Care Team Providers + +------+ + | Care Senior C Software Engineer Name | Role | Phone | + +------+ + PCP | Unavailable | + +------+ + Encounter Details +--------+ + + + + | Date | Type | Department | Care Team | Description | +--------+ + + + + | 12/27/ | Hospital | [facility] | | | | 1997 - | Encounter | MED CTR GENERIC PSY | | | | | | CONV DEPT [address] | | | | 01/01/ | | [address], | | | | 1997 | | [place] [address] | | | | | | [phone] | | | +--------+ + + + [...] [address] | | | | | | [place] [address] | | | | | | [phone] | | | | | | | | +--------+ + + + + | 06/26/ | Office | Cardiology | Dora De La Torre | | | 2019 | Visit | | [address] | | | | | | [address] | | | | | | [place] [address] | | | | | | [phone] | | | | | | | | +--------+ + + + + documented as of this encounter Visit Diagnoses Not on filedocumented in this encounter"
--- OUTSIDE RECORDS SUMMARY | ~2020-05-06 | XMS | Encounter Summary ---
Demographics + + + | Address | [address] | | | [place] [address] | + + + | Home Phone [...] [place] | | | | | [address] | | + + + + + Care Team Providers + +------+ + | Care Nursing Program Director Name | Role | Phone [...] + + | 09/10/ | Documentati | [facility] | Katharine Moncada, | Other (urgent | | 2019 | on | CARDIOLOGY [place] | Technologist | report) | | | | [address] | | | | | | [place] | | | | | | [address] | | | | | | [phone] | | | +--------+ + + + [...] | | | | | [place] [address] | | | | | | [phone] | | | | | | | | +--------+ + + + + | 06/26/ | Office | Cardiology | Dora De La Torre | | | 2020 | Visit | | [address] | | | | | | [address] | | | | | | [place] [address] | | | | | | [phone] | | | | | | | | +--------+ + + + + documented as of this encounter Visit Diagnoses Not on filedocumented in this encounter"
--- OUTSIDE RECORDS SUMMARY | ~2020-05-06 | XMS | Encounter Summary ---
Demographics + + + | Address | [address] | | | [place] [address] | + + + | Home Phone [...] [place] | | | | | [address] | | + + + + + Care Team Providers + +------+ + | Care Cash Register Mechanic Name | Role | Phone | [...] + + | 02/13/ | Office | [facility] | Dora De La Torre | History of atrial | | 2020 | Visit | CARDIOLOGY [place] | [address] | fibrillation | | | | [address] | [address] | (Primary Dx); New | | | | [address] | [place] [address] | onset left bundle | | | | [place] | [phone] | branch block (LBBB); | | | | [address] | | Benign essential | | | | [phone] | | HTN; History of | | [...] | | | | | | obesity) ([facility]) | +--------+---------+ + + + Social History [...] 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 Her [id number] VASC score is 4 (stroke, HTN, gender) [...] She has previously seen Dr. Garland in [place], and different sleep provider in [place] when lived over there. She previously reported [...] go back to volunteering at the local [employer], though this plan will need to be [...] thirst or hunger. Psychiatric/Behavioral: Bipolar/Schizophrenia. Tx'd by [employer] Vaccines: Current on flu vaccine: 2019 Current on pneumonia vaccine:PPSV 23 05/29/2013 Habits/Social : Denies history of smoking. Denies EtOH use. Denies recreational or illici t drug use. Exercises sporadically. Lives in [place] . Outpatient Medications Prior to Visit Medication [...] by mouth nightly. Blood Glucose Monitoring Suppl (Agnitus VERIO FLEX SYSTEM) w/Device KIT by Does [...] discomfort, patient unable to walk on eriberto dmThing Labs. Resting EKG normal sinus rhythm, arrhythmias ventricular [...] nonspecific ST-T wave abnormality rate 82 bpm, GA 176 ms, QRS 80 ms, QTC 446 ms tracing personally reviewed by me EK12/17/2019: Sinus tachycardia, nonspecific ST wave abnormalities, rate 105 bpm, GA 196 ms, QRS 74 ms, QTC 430 ms, tracing personally reviewed by me, and compared to EKG performed in February 2019, rate is less well-controlled EK01/10/2020 (metoprolol XL 50 mg twice daily. Normal sinus rhythm, new left bundle bran ch block Rate 74 bpm, GA 204 ms, QRS 138 ms, QTC 488 [...] bundle branch block. Ra te 105 bpm, GA 184 ms, QRS 144 ms, QTC 489 ms, tracing personally reviewed by me, and compar ed to EKG performed in December , rate is less well-controlled LABS Labs: 12/26/2018: ( [facility])CMP: Sodium 139, potassium 4.2, chloride 99, BUN 10, creatinine 0. 7, BNP 28. CBC: WBC 7.8, hemoglobin 14.3, hematocrit 42.7, platelets 214 Labs: 09/28/2019:( [facility]) CBC: WBC 7.8, hemoglobin 14.9, hematocrit 43.8, platelets 221. C MP: Sodium 132, potassium 4.2, chloride 95, AST 76, ALT 76, alk phos 134 Labs: 10/11/2019:( [facility]) CBC: WBC 6.7, RBC 4.97, hemoglobin 15.2, hematocrit 44.7, platel ets 200. CMP: Glucose 385, BUN 7, creatinine 0.62, GFR 97, sodium 131, potassium 4.1, chlor kelby 95, albumin 4.3, total bilirubin 0.6, AST 75, ALT 73, alk phos 144. 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 Peterson, who was in clin ic [...] Obesity, Class III, BMI 40-49.9 (morbid obesity) ([facility]) Orders Placed This Encounter Procedures ECG 12 [...] for continuity of care purp [facility]Hannah [facility] Card[facility] 02/15/2020 docume nted in this [...] [address] | | | | | | [place] [address] | | | | | | [phone] | | | | | | | | +--------+ + + + + | 06/26/ | Office | Cardiology | Dora De La Torre | | | 2019 | Visit | | [address] | | | | | | [address] | | | | | | [place] [address] | | | | | | [phone] | | | | | | | [...] | | | | | DORA VELAZQUEZ ([id number]) on | | | | | | [...]
--- OUTSIDE RECORDS SUMMARY | ~2020-05-06 | XMS | Encounter Summary ---
Demographics + + + | Address | [address] | | | [place] [address] | + + + | Home Phone [...] [place], [place] | | | | | [address] | | + + + + + Care Team Providers + +------+ + | Care Bell Staff Name | Role | Phone | + +------+ + PCP | Unavailable | + +------+ + Encounter Details +--------+ + + + + | Date | Type | Department | Care Team | Description | +--------+ + + + + | 12/06/ | Hospital | [facility] | | | | 1994 | Encounter | MED CTR LABORATORY | | | | | | [address] | | | | | | [place] | | | | | | [address] | | | | | | [phone] | | | +--------+ + + + [...] | | | | | [place] [address] | | | | | | [phone] | | | | | | | | +--------+ + + + + | 06/26/ | Office | Cardiology | Dora De La Torre | | | 2020 | Visit | | [address] | | | | | | [address] | | | | | | [place] [address] | | | | | | [phone] | | | | | | | | +--------+ + + + + documented as of this encounter Visit Diagnoses Not on filedocumented in this encounter"
--- OUTSIDE RECORDS SUMMARY | ~2020-05-06 | XMS | Encounter Summary ---
Demographics + + + | Address | [address] | | | [place] [address] | + + + | Home Phone [...] [place] | | | | | [address] | | + + + + + Care Team Providers + +------+ + | Care Sightseeing Guide Name | Role | Phone | + +------+ + | Basim Bolanos MD | PCP | | + +------+ + Encounter Details +--------+ + + + + | Date | Type | Department | Care Team | Description | +--------+ + + + + | 02/22/ | Abstract | [facility] [place] | [facility], | | | 2012 | | GASTROENTEROLOGY | [address] | | | | | [address] | [address] | | | | | [address] [place], [place] | [place], [place] | | | | | [address] | [address] | | | | | [phone] | | | +--------+ + + + [...] | | | | | [place] [address] | | | | | | [phone] | | | | | | | | +--------+ + + + + | 06/26/ | Office | Cardiology | Dora De La Torre | | | 2019 | Visit | | [address] | | | | | | [address] | | | | | | [place] [address] | | | | | | [phone] | | | | | | | | +--------+ + + + + documented as of this encounter Visit Diagnoses Not on filedocumented in this encounter"
--- OUTSIDE RECORDS SUMMARY | ~2020-05-06 | XMS | Encounter Summary ---
Demographics + + + | Address | [address] | | | [place] [address] | + + + | Home Phone [...] [place] | | | | | [address] | | + + + + + Care Team Providers + +------+ + | Care Pick Up Man Name | Role | Phone | + [...] + + | 08/13/ | Documentati | [facility] | Katharine Moncada, | Other (urgent | | 2019 | on | CARDIOLOGY [place] | Technologist | report) | | | | [address] | | | | | | [place] | | | | | | [address] | | | | | | [phone] | | | +--------+ + + + [...] | | | | | [place] [address] | | | | | | [phone] | | | | | | | | +--------+ + + + + | 06/26/ | Office | Cardiology | Dora De La Torre | | | 2020 | Visit | | [address] | | | | | | [address] | | | | | | [place] [address] | | | | | | [phone] | | | | | | | | +--------+ + + + + documented as of this encounter Visit Diagnoses Not on filedocumented in this encounter"
--- OUTSIDE RECORDS SUMMARY | ~2020-05-06 | XMS | Encounter Summary ---
Demographics + + + | Address | [address] | | | [place] [address] | + + + | Home Phone [...] [place] | | | | | [address] | | + + + + + Care Team Providers + +------+ + | Care Manufacturing Quality Inspector Name | Role | Phone | [...] | | | | | mellitus, | [address] | [place] | | | | | controlled | Phone: | [phone] | | | | | (HCC) | [phone] | Phone: | | | | | History of | Fax: | [phone] | | | | | gastric | [phone] | Fax: | | | | | restrictive | | [phone] | | | | | surgery | [...] | Required | | hypertension | [address] | | | | | Lumbar | AVE [place] | [address] | | | | | radiculopath | [place], [place] | AVE | | | | | y Type 2 | [address] | [place] | | | | | diabetes | Phone: | [phone] | | | | | mellitus, | [phone] | Phone: | | | | | controlled | Fax: | [phone] | | | | | (HCC) | [phone] | Fax: | | | | | Obesity, | | [phone] | | | | | Class III, [...] | | FORTUNATO & Katharine BUCIO in [place]. | + + + | Other | [...] + + | 03/06/ | Office | [facility] | Katharine Cardona PA-C | Hypothyroidism due | | 2014 | Visit | MEDICINE [address] | to acquired atrophy | | | | [address] [place] [address], | [place] [address] | of thyroid (Primary | | | | [place] [address] | [phone] | Dx); Essential | | | | [phone] | | hypertension; Iron | | | [...] | | | | | | ([facility]); Environmental | | | | | | [...] | | | | | obesity) ([facility]); | | | | | | Type 2 diabetes | | | | | | mellitus, controlled | | | | | | ([facility]); Preventative | | | | | | [...] t be different from the original. Ask [facility] if they think it might be helpful [...] Cont your meds as prescribed. F/U with [facility] as scheduled Neuropathy Continue gabapentin. May consider increase if pain is not controlled. May benefit from switching from Paxil to one of the SNRIs or TCAs for analgesic effects, ho manju, she is doing so well on her current regimen it may not be worth making any changes an d find alternate ways to deal with the pain. Would be worth discussing with [facility] Psych Back Pain Will refer to water therapy (aqua fitness) at [facility] as request ed. ROGERS on [...] procedures 4. Schizoaffective disorder, bipolar type ([facility]) 5. Neuropathy Vitamin B-12 6. BACK PAIN, LUMBAR, WITH RADICULOPATHY Ambulatory referral to Physical Therapy 7. ROGERS on CPAP 8. Stroke ([facility]) 9. Environmental and seasonal allergies fluticasone (FLONASE) 50 mcg/nasal spray 10. Gastroesophageal reflux disease without esophagitis dexlansoprazole (DEXILANT) 60 mg D R capsule 11. History of gastric restrictive surgery Vitamin D, 25-Hydroxy Nutrition Services - External - AMB Referral 12. Obesity, Class III, BMI 40-49.9 (morbid obesity) ([facility]) Ambulatory referral to Physical Therapy Nutrition Services - External - AMB Referral 13. Type 2 diabetes mellitus, controlled ([facility]) Ambulatory referral to Physical Therapy Nutrition Services [...] Cont your meds as prescribed. [facility] Neuropathy Continue gabapentin. May [...] the pain. Would be worth discussing with [facility] professional. Back Pain Will refer to water therapy (aqua fitness) at [facility] as request ed. Cont home exercise, [...] plan. The above note was dictated using [employer] voice recognition software. It may have not been proofread in entirety. Minor errors in grammar may occur. CHIEF COMPLAINT Chief Complaint Patient presents with Establish Care Presents to establish care. Former patient of Natalee B[facility]IO & Katharine BUCIO in [place]. Other Possible stroke January 2015. Is now seeing Dr. Newman, changed to Plavix 02-27-15 from [facility]. Diabetes NIDDM. Checks blood sugars almost daily, [...] auditory, at 36. 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 She is now very well controlled on Saphris, Depakote, and Paxi l. She is followed by [facility] in [place]. She has DM2 that is well controlled [...] Laterality: N/A; Surgeon: Frandy castellanos DO; Location: [facility] OR SOCIAL HISTORY History Social [...] mg by mouth Daily. Cholecalciferol (VITAMIN D-3) 97658 units CAPS Oral Take 50,000 Units by [...] Oral Take 10 mg by mouth nightly. Wagoner-3 Fatty Acids (FISH OIL CONCENTRATE) 1000 MG [...] [address] | | | | | | [place] [address] | | | | | | [phone] | | | | | | | | +--------+ + + + + | 06/26/ | Office | Cardiology | Dora De La Torre | | | 2019 | Visit | | [address] | | | | | | [address] | | | | | | [place] [address] | | | | | | [phone] | | | | | | | [...] | | | | | controlled ([facility]) | | | | | | Obesity, Class III, | | | | | | BMI 40-49.9 (morbid | | | | | | obesity) ([facility]) | | + + +--------+ + + [...] | | | | | obesity) ([facility]) | | + + +--------+ + + [...] | | | FILTRATION | mL/min/1.73m2 | [facility] | | | [facility] | RATE,ESTIMATED | | MEDICAL | | | | mL/min/1.12p2Pmsg than | | CENTER - | | [...] | 9.6 | 8.3 - 10.5 | [facility] | | | | | mg/dL | [...] | | | | | | [facility] | | | | | | MEDICAL [...] [address] | [place] | [phone] | | [facility] | | [address] | | | - LABORATORY | | [...]
--- OUTSIDE RECORDS SUMMARY | ~2020-05-06 | XMS | Encounter Summary ---
Demographics + + + | Address | [address] | | | [place] [address] | + + + | Home Phone [...] [place] | | | | | [address] | | + + + + + Care Team Providers + +------+ + | Care Irrigationist Designer Name | Role | Phone | [...] + + | 08/09/ | Clinical | [facility] | Desiree Peterson DO | Syncope, unspecified | | 2019 | Support | CARDIOLOGY [place] | [address] | syncope type | | | | [address] | [place], [place] | | | | | [place] [address] | [address] | | | | | [place] | | | | | | [address] | Dora De La Torre | | | | | [phone] | [address] | | | | | | [address] | | | | | | [place] [address] | | | | | | [phone] | | | | | | | [...] [address] | | | | | | [place] [address] | | | | | | [phone] | | | | | | | | +--------+ + + + + | 06/26/ | Office | Cardiology | Dora De La Torre | | | 2019 | Visit | | [address] | | | | | | [address] | | | | | | [place] [address] | | | | | | [phone] | | | | | | | | +--------+ + + + + documented as of this encounter Visit Diagnoses + + | Diagnosis | + + | Syncope, unspecified syncope type | + + documented in this encounter"
--- OUTSIDE RECORDS SUMMARY | ~2020-05-06 | XMS | Encounter Summary ---
Demographics + + + | Address | [address] | | | [place] [address] | + + + | Home Phone [...] [place] | | | | | [address] | | + + + + + Care Team Providers + +------+ + | Care Commercial Painter Name | Role | Phone | + [...] + + | 03/26/ | Telephone | [facility] | Thierry Fry | Medication Prior | | 2014 | | MEDICINE [address] [place] [address] | MD Lisa [address] | Authorization | | | | [employer], | [employer] [employer] [place] | (Dexilant 60Mg) | | | | [place] [address] | [address] | | | | | [phone] | | | +--------+ + + + [...] were not received I contacted insurance ID# [id number] This has been denied. The patient must try and fail 2 of the following Omeprazole Protonix Prevacid Nexium Please advise elepho ne Encounter - Saba Acosta Cert MA - 03/26/2015 1:32 PM PDTCalled and requested a prior authorization Requested for via fax from bubl Prior auth medication Dexilant 60MgElectronically signed by [...] | | | | | [place] [address] | | | | | | [phone] | | | | | | | | +--------+ + + + + | 06/26/ | Office | Cardiology | Dora De La Torre | | | 2020 | Visit | | [address] | | | | | | [address] [address] | | | | | | [place] [address] | | | | | | [phone] | | | | | | | | +--------+ + + + + documented as of this encounter Visit Diagnoses Not on filedocumented in this encounter"
--- OUTSIDE RECORDS SUMMARY | ~2020-05-06 | XMS | Encounter Summary ---
Demographics + + + | Address | [address] | | | [place] [address] | + + + | Home Phone [...] [place], [place] | | | | | [address] | | + + + + + Care Team Providers + +------+ + | Care Foreign Trade Teacher Name | Role | Phone | + +------+ + PCP | Unavailable | + +------+ + Encounter Details +--------+ + + + + | Date | Type | Department | Care Team | Description | +--------+ + + + + | 01/06/ | Hospital | [facility] | | | | 1992 | Encounter | MED CTR LABORATORY | | | | | | [address] | | | | | | [place] | | | | | | [address] | | | | | | [phone] | | | +--------+ + + + [...] | | | | | [place] [address] | | | | | | [phone] | | | | | | | | +--------+ + + + + | 06/26/ | Office | Cardiology | Dora De La Torre | | | 2020 | Visit | | [address] | | | | | | [address] | | | | | | [place] [address] | | | | | | [phone] | | | | | | | | +--------+ + + + + documented as of this encounter Visit Diagnoses Not on filedocumented in this encounter"
--- OUTSIDE RECORDS SUMMARY | ~2020-05-06 | XMS | Encounter Summary ---
Demographics + + + | Address | [address] | | | [place] [address] | + + + | Home Phone [...] [place] | | | | | [address] | | + + + + + Care Team Providers + +------+ + | Care Spring Intern Name | Role | Phone | [...] + + | 06/12/ | Office | [facility] | Chris Nicole, | Spondylisthesis | | 2013 | Visit | NEUROSURGERY [address] | PA-C [address] | (Primary Dx); | | | | [address] | [place], [place] | Radiculopathy of | | | | [place] | [address] | leg; Lumbar spine | | | | [address] | | instability; Lumbar | | | | [phone] | | spondylosis; | | | | [...] f rom the original. ZANE Castillo [address] [facility] [place], [place] [address] FAX: NEUROSURGERY HISTORY AND PHYSICAL EXAMINATION CHIEF [...] Take 15 mg by mouth nightl y. Barnett-3 Fatty Acids (FISH OIL CONCENTRATE) 1000 MG [...] has no apparent deficits with short or moth exterminator memory. CRANIAL NERVES: II: Acuity is intact. [...] Intrinsics 5 5 Ulnar Intrinsics 5 5 Computer Assembler Strength 5 5 Hip Flexion 5 4* [...] [place] | | | | | | [place] [address] | | | | | | [phone] | | | | | | | | +--------+ + + + + | 06/26/ | Office | Cardiology | Dora De La Torre | | | 2019 | Visit | | [address] | | | | | | [address] | | | | | | [facility] [place] [address] | | | | | | [phone] | | | | | | | [...]
--- OUTSIDE RECORDS SUMMARY | ~2020-05-06 | XMS | Encounter Summary ---
Demographics + + + | Address | [address] | | | [place] [address] | + + + | Home Phone [...] [place] | | | | | [address] | | + + + + + Care Team Providers + +------+ + | Care Controlled Area Checker Name | Role | Phone | [...] | | | | | | | [address] | | | | | | | Phone: | | | | | | | [phone] | | | | | | | Fax: | | | | | | | [phone] | | +--------+ + + + + + Reason for Visit + + + | Reason | Comments | + + + | Follow-up | 4 Week PO | + + + Encounter Details +--------+---------+ + + + | Date | Type | Department | Care Team | Description | +--------+---------+ + + + | 07/25/ | Office | [facility] | Frandy Teresa, | Lumbar spondylosis | | 2013 | Visit | NEUROSURGERY [address] | DO [address] | (Primary Dx); S/P | | | | [address] | [address] [place], [place] | lumbar fusion | | | | [place] | [address] | | | | | [address] | | | | | | [phone] | | | +--------+---------+ + + + [...] original. Frandy Teresa DO [address] [facility], [address] [place] [address] FAX: NEUROSURGERY SURGICAL FOLLOW-UP CHIEF COMPLAINT: Chief [...] Take 15 mg by mouth nightl y. Chamberlain-3 Fatty Acids (FISH OIL CONCENTRATE) 1000 MG [...] [address] | | | | | | [place] [address] | | | | | | [phone] | | | | | | | | +--------+ + + + + | 06/26/ | Office | Cardiology | Dora De La Torre | | | 2020 | Visit | | [address] | | | | | | [address] | | | | | | [place] [address] | | | | | | [phone] | | | | | | | [...] + | MISCELLANEOUS LAB | | | [phone] | + +---------+ + + | MISCELANIOUS LAB | | | [phone] | + +---------+ + + documented in this encounter Visit Diagnoses + + | Diagnosis | + + | Lumbar spondylosis - Primary Lumbosacral spondylosis without myelopathy | + + | S/P lumbar fusion Arthrodesis status | + + documented in this encounter
--- OUTSIDE RECORDS SUMMARY | ~2020-05-06 | XMS | Encounter Summary ---
Demographics + + + | Address | [address] | | | [place] [address] | + + + | Home Phone [...] [place] | | | | | [address] | | + + + + + Care Team Providers + +------+ + | Care Color Dipper Name | Role | Phone | + [...] | Transcriptions | + + | Interface, Tube Test Technician In - 11/04/2006 3:03 AM PST | | [address] | | [place], [place] [address] [facility] | | ClinicsOPERATION RECORDMed Rec [...] skin retractor was put in place. The Mercedes elevators wereused to separate the | | [...]
--- OUTSIDE RECORDS SUMMARY | ~2020-05-06 | XMS | Encounter Summary ---
Demographics + + + | Address | [address] | | | [place] [address] | + + + | Home Phone [...] [place], [place] | | | | | [address] | | + + + + + Care Team Providers + +------+ + | Care Patient Companion Name | Role | Phone | + +------+ + PCP | Unavailable | + +------+ + Encounter Details +--------+ + + + + | Date | Type | Department | Care Team | Description | +--------+ + + + + | 04/16/ | Hospital | [facility] | | | | 1997 | Encounter | MED CTR XRAY [address] | | | | | [address] | | | | | | [place] [address] | | | | | | [phone] | | | +--------+ + + + [...] | | | | | [place] [address] | | | | | | [phone] | | | | | | | | +--------+ + + + + | 06/26/ | Office | Cardiology | Dora De La Torre | | | 2019 | Visit | | [address] | | | | | | [address] [address] | | | | | | [place] [address] | | | | | | [phone] | | | | | | | | +--------+ + + + + documented as of this encounter Visit Diagnoses Not on filedocumented in this encounter"
--- OUTSIDE RECORDS SUMMARY | ~2020-05-06 | XMS | Encounter Summary ---
Demographics + + + | Address | [address] | | | [place] [address] | + + + | Home Phone [...] [place], [place] | | | | | [address] | | + + + + + Care Team Providers + +------+ + | Care Drill Press Tender Name | Role | Phone | + +------+ + PCP | Unavailable | + +------+ + Encounter Details +--------+ + + + + | Date | Type | Department | Care Team | Description | +--------+ + + + + | 09/24/ | Hospital | [facility] | | | | 1993 | Encounter | MED CTR LABORATORY | | | | | | [address] | | | | | | [place] | | | | | | [address] | | | | | | [phone] | | | +--------+ + + + [...] | | | | | [place] [address] | | | | | | [phone] | | | | | | | | +--------+ + + + + | 06/26/ | Office | Cardiology | Dora De La Torre | | | 2020 | Visit | | [address] | | | | | | [address] [address] | | | | | | [place] [address] | | | | | | [phone] | | | | | | | | +--------+ + + + + documented as of this encounter Visit Diagnoses Not on filedocumented in this encounter"
--- OUTSIDE RECORDS SUMMARY | ~2020-05-06 | XMS | Encounter Summary ---
Demographics + + + | Address | [address] | | | [place] [address] | + + + | Home Phone [...] [place], [place] | | | | | [address] | | + + + + + Care Team Providers + +------+ + | Care Sales/Marketing Name | Role | Phone | + +------+ + PCP | Unavailable | + +------+ + Encounter Details +--------+ + + + + | Date | Type | Department | Care Team | Description | +--------+ + + + + | 02/24/ | Hospital | [facility] | | | | 1997 - | Encounter | MED CTR GENERIC PSY | | | | | | CONV DEPT [address] | | | | 02/26/ | | [address], | | | | 1997 | | [place] [address] | | | | | | [phone] | | | +--------+ + + + [...] [place] | | | | | | [place] [address] | | | | | | [phone] | | | | | | | | +--------+ + + + + | 06/26/ | Office | Cardiology | Dora De La Torre | | | 2019 | Visit | | [address] | | | | | | [place] [address] | | | | | | [place] [address] | | | | | | [phone] | | | | | | | | +--------+ + + + + documented as of this encounter Visit Diagnoses Not on filedocumented in this encounter"
--- OUTSIDE RECORDS SUMMARY | ~2020-05-06 | XMS | Encounter Summary ---
Demographics + + + | Address | [address] | | | [place] [address] | + + + | Home Phone [...] [place] | | | | | [address] | | + + + + + Care Team Providers + +------+ + | Care Adjunct Psychology Faculty Member Name | Role | Phone | [...] + | 07/29/ | Telephone | [facility] | Frandy Cagle, | Other (multiple | | 2013 | | NEUROSURGERY [address] | DO [address] | questions) | | | | [facility] [address] | [address] [place], [place] | | | | | [place], [place] | [id number] | | | | | [address] | | | | | | [phone] | | | +--------+ + + + [...] and I might get a repeat MRI. [place] ordered. Thanks. ddendum Note - Shayne Aragon [...] - 07/29/2014 11:19 AM PDTCall [facility] to get fur ther information. She [...] refill be mailed to her for her [place] 10/325mg which was given to her on [...] | | | | | [place] [address] | | | | | | [phone] | | | | | | | | +--------+ + + + + | 06/26/ | Office | Cardiology | Dora De La Torre | | | 2019 | Visit | | [address] | | | | | | [place] | | | | | | [place] [address] | | | | | | [phone] | | | | | | | | +--------+ + + + + documented as of this encounter Visit Diagnoses Not on filedocumented in this encounter"
--- OUTSIDE RECORDS SUMMARY | ~2020-05-06 | XMS | Encounter Summary ---
Demographics + + + | Address | [address] | | | [place] [address] | + + + | Home Phone [...] [place] | | | | | [address] | | + + + + + Care Team Providers + +------+ + | Care Automotive Glass Mechanic Name | Role | Phone | [...] + + | 05/01/ | Telephone | [facility] | Dora De La Torre | Medication Question | | 2020 | | CARDIOLOGY [place] | [address] | | | | | [address] | [address] | | | | | [address] | [place] [address] | | | | | [place] | [phone] | | | | | [address] | | | | | | [phone] | | | +--------+ + + + [...] | | | | | [place] [address] | | | | | | [phone] | | | | | | | | +--------+ + + + + | 09/03/ | Office | Cardiology | Dora De La Torre | | | 2020 | Visit | | [address] | | | | | | [place] [address] | | | | | | [place] [address] | | | | | | [phone] | | | | | | | | +--------+ + + + + documented as of this encounter Visit Diagnoses Not on filedocumented in this encounter"
--- OUTSIDE RECORDS SUMMARY | ~2020-05-06 | XMS | Encounter Summary ---
Demographics + + + | Address | [address] | | | [place] [address] | + + + | Home Phone [...] [place] | | | | | [address] | | + + + + + Care Team Providers + +------+ + | Care Clinical Research Assistant Name | Role | Phone | + +------+ + | Basim Bolanos MD | PCP | | + +------+ + Encounter Details +--------+ + + + + | Date | Type | Department | Care Team | Description | +--------+ + + + + | 01/24/ | Abstract | [facility] [place] | [facility] | | | 2012 | | GASTROENTEROLOGY | FORTUNATO Thomas [address] | | | | | [address] | [address] | | | | | [address] [place], [place] | [place], [place] | | | | | [address] | [address] | | | | | [phone] | | | +--------+ + + + [...] | | | | | [place] [address] | | | | | | [phone] | | | | | | | | +--------+ + + + + | 06/26/ | Office | Cardiology | Dora De La Torre | | | 2019 | Visit | | [address] | | | | | | [address] | | | | | | [place] [address] | | | | | | [phone] | | | | | | | | +--------+ + + + + documented as of this encounter Visit Diagnoses Not on filedocumented in this encounter"
--- OUTSIDE RECORDS SUMMARY | ~2020-05-06 | XMS | Encounter Summary ---
Demographics + + + | Address | [address] | | | [place] [address] | + + + | Home Phone [...] [place] | | | | | [address] | | + + + + + Care Team Providers + +------+ + | Care Assembler Unit Name | Role | Phone | + [...] | | [address] | [place], [place] | | | | | [place], [place] | [address] | | | | | [address] | | | | | | [phone] | | | +--------+ + + + [...] [place] | | | | | | [place] [address] | | | | | | [phone] | | | | | | | | +--------+ + + + + | 06/26/ | Office | Cardiology | Dora De La Torre | | | 2019 | Visit | | [address] | | | | | | [address] | | | | | | [place] [address] | | | | | | [phone] | | | | | | | [...] 0.83 m/s | | | MV Dec Bennett: 2.85 m/s2 MV DecT: 282.89 ms MV E Teodoro: 0.80 | | | m/s MV E/A Ratio: 0.96 E/E' Sept: 12.59 E' Lat: 0.08 m/s | | | E' Sept: 0.06 m/s RAP: 10 mmHg RV S': 0.11 m/s RVSP: | | | 27.96 mmHg TR maxP.96 mmHg TR Vmax: 2.11 m/s | | | Implement Mechanic: Authenticated by: Desiree Peterson MD Report Date/Time: | | | -- [id number]_1:31:1 | | + + + + + [...] (A-L): 19.60 | | ml/m2LAAs A2C: 15.44 [id number] A-L A2C: 43.84 mlLAESV MOD A2C: 42.12 mlLALs A2C: | | 4.61 cmLAAs A4C: 14.18 ky1OGNTK A-L A4C: 38.73 mlLAESV MOD A4C: 37.04 mlLALs A4C: | | 4.41 cmRAAs: 12.15 [id number] A-L: 28.54 mlRAESV MOD: 28.66 mlRALs: 4.39 | | cmTAPSE: 2.42 cmAV Env.Ti: 293.94 msAV maxP.18 mmHgAV meanP.09 mmHgAV | | Vmax: 1.88 m/Eddie Vmean: 1.25 m/Eddie VTI: 36.84 cmAVA Vmax: 2.06 cm2AVA (VTI): | | 2.24 kr7IXWF Vmax: 0.00 cm2/m2AVAI (VTI): 0.00 cm2/m2LVOT Env.Ti: 299.59 msLVOT | | maxP.52 mmHgLVOT meanP.65 mmHgLVSI Dopp: 38.55 ml/m2LVSV Dopp: 82.89 | | mlLVOT Vmax: 1.27 m/sLVOT Vmean: 0.91 m/sLVOT VTI: 27.27 cmMV A Teodoro: 0.83 m/sMV | | Dec Bennett: 2.85 m/s2MV DecT: 282.89 msMV E Teodoro: 0.80 m/sMV E/A Ratio: 0.96E/E' | | Sept: 12.59E' Lat: 0.08 m/sE' Sept: 0.06 m/sRAP: 10 mmHgRV S': 0.11 m/sRVSP: | | 27.96 mmHgTR maxP.96 mmHgTR Vmax: 2.11 m/s Implement Mechanic:Authenticated by: | | Desiree Peterson MDReport Date/Time: -- [id number]:31:1 IMPRESSION: 1. Overall left | | ventricular [...] A Teodoro: 0.83 m/s | |MV Dec Bennett: 2.85 m/s2 | |MV DecT: 282.89 ms | |MV E Teodoro: 0.80 m/s | |MV E/A Ratio: 0.96 | |E/E' Sept: 12.59 | |E' Lat: 0.08 m/s | |E' Sept: 0.06 m/s | |RAP: 10 mmHg | |RV S': 0.11 m/s | |RVSP: 27.96 mmHg | |TR maxP.96 mmHg | |TR Vmax: 2.11 m/s | | | |Implement Mechanic: | |Authenticated by: Desiree Peterson MD | |Report Date/Time: -- [id number]:31:1 | | | |IMPRESSION: | |1. Overall [...]
--- OUTSIDE RECORDS SUMMARY | ~2020-05-06 | XMS | Encounter Summary ---
Demographics + + + | Address | [address] | | | [place] [address] | + + + | Home Phone | | + + + | Preferred Language | Unknown | + + + | Marital Status | Single | + + + | Yazidi Affiliation | Unknown | + + + [...] [place] | | | | | [address] | | + + + + + Care Team Providers + +------+ + | Care Hand Painter Name | Role | Phone | [...] | Transcriptions | + + | Interface, Livestock Producer In - 10/24/2006 3:09 AM PST | | [facility] | | Road [place], [place] [address] [place] | | [facility] InstituteOPERATION RECORDMed Rec No.: [id number] Date: | | [...]
--- OUTSIDE RECORDS SUMMARY | ~2020-05-06 | XMS | Encounter Summary ---
Demographics + + + | Address | [address] | | | [place] [address] | + + + | Home Phone [...] [place], [place] | | | | | [address] | | + + + + + Care Team Providers + +------+ + | Care Air Cargo Ground Crew Supervisor Name | Role | Phone [...] [place] | | | | | | [address] | | | | | | [phone] | | | +--------+ + + + [...] | | | | | [place] [address] | | | | | | [phone] | | | | | | | | +--------+ + + + + | 06/26/ | Office | Cardiology | Dora De La Torre | | | 2020 | Visit | | [address] | | | | | | [address] [address] | | | | | | [place] [address] | | | | | | [phone] | | | | | | | | +--------+ + + + + documented as of this encounter Visit Diagnoses Not on filedocumented in this encounter"
--- OUTSIDE RECORDS SUMMARY | ~2020-05-06 | XMS | Encounter Summary ---
Demographics + + + | Address | [address] | | | [place] [address] | + + + | Home Phone [...] [place] | | | | | [address] | | + + + + + Care Team Providers + +------+ + | Care Assistant Professor Of Education Name | Role | Phone | [...] | | | [address] | [place] [address] | | | | | [place] [address] | | | | | | [phone] | | | +--------+ + + + [...] [address] | | | | | | [place] [address] | | | | | | [phone] | | | | | | | | +--------+ + + + + | 06/26/ | Office | Cardiology | Dora De La Torre | | | 2019 | Visit | | [address] | | | | | | [address] | | | | | | [place] [address] | | | | | | [phone] | | | | | | | [...]
--- OUTSIDE RECORDS SUMMARY | ~2020-05-06 | XMS | Encounter Summary ---
Demographics + + + | Address | [address] | | | [place] [address] | + + + | Home Phone [...] [place] | | | | | [address] | | + + + + + [...] + + | 06/26/ | Hospital | [facility] | Heather Cordero PT | | | 2014 | Encounter | MED CTR ACUTE | [address] | | | | | PHYSICAL THERAPY | [place] | | | | | [address] [place] | [address] | | | | | [place] [address] | | | | | | [phone] | | | +--------+ + + + [...] + + + +---------+ + + | [place]-3 Fatty | Take 1,000 mg by [...] | | | | | [place] [address] | | | | | | [phone] | | | | | | | | +--------+ + + + + | 06/26/ | Office | Cardiology | Dora De La Torre | | | 2020 | Visit | | [address] | | | | | | [address] [address] | | | | | | [place] [address] | | | | | | [phone] | | | | | | | | +--------+ + + + + documented as of this encounter Visit Diagnoses Not on filedocumented in this encounter"
--- OUTSIDE RECORDS SUMMARY | ~2020-05-06 | XMS | Encounter Summary ---
Demographics + + + | Address | [address] | | | [place] [address] | + + + | Home Phone [...] [place], [place] | | | | | [address] | | + + + + + Care Team Providers + +------+ + | Care Background Investigator Name | Role | Phone | + +------+ + PCP | Unavailable | + +------+ + Encounter Details +--------+ + + + + | Date | Type | Department | Care Team | Description | +--------+ + + + + | 09/10/ | Hospital | [facility] | | | | 1992 | Encounter | MED CTR LABORATORY | | | | | | [address] | | | | | | [place] | | | | | | [address] | | | | | | [phone] | | | +--------+ + + + [...] | | | | | [place] [address] | | | | | | [phone] | | | | | | | | +--------+ + + + + | 06/26/ | Office | Cardiology | Dora De La Torre | | | 2020 | Visit | | [address] | | | | | | [place] | | | | | | [place] [address] | | | | | | [phone] | | | | | | | | +--------+ + + + + documented as of this encounter Visit Diagnoses Not on filedocumented in this encounter"
--- OUTSIDE RECORDS SUMMARY | ~2020-05-06 | XMS | Encounter Summary ---
Demographics + + + | Address | [address] | | | [place] [address] | + + + | Home Phone [...] [place] | | | | | [address] | | + + + + + Care Team Providers + +------+ + | Care Special Education Teacher Name | Role | Phone [...] | | | | | pain, | [place], [place] | | | | | | bilateral | [address] | | | | | | Degenerative | Phone: | | | | | | disc | [phone] | | | | | | disease, | Fax: | | | | | | lumbar | [phone] | | | | | | Spinal [...] [address] | [address] [place], [place] | (Primary Dx); Knee | | | | [place], [place] | [address] | pain, bilateral; | | | | [address] | | DEGENERATIVE DISC | | | | [phone] | | DISEASE, LUMBAR | | | [...] | | | | | [place] [address] | | | | | | [phone] | | | | | | | | +--------+ + + + + | 06/26/ | Office | Cardiology | Dora De La Torre | | | 2020 | Visit | | [address] | | | | | | [address] | | | | | | [place] [address] | | | | | | [phone] | | | | | | | [...]
--- OUTSIDE RECORDS SUMMARY | ~2020-05-06 | XMS | Encounter Summary ---
Demographics + + + | Address | [address] | | | [place] [address] | + + + | Home Phone [...] [place], [place] | | | | | [address] | | + + + + + Care Team Providers + +------+ + | Care Enrollment Management Coordinator Name | Role | Phone | + +------+ + PCP | Unavailable | + +------+ + Encounter Details +--------+ + + + + | Date | Type | Department | Care Team | Description | +--------+ + + + + | 06/23/ | Hospital | [facility] | | | | 2000 | Encounter | [facility] GENER[facility] | | | | | | CONV DEPT [address] | | | | | | [place], | | | | | | [place] [address] | | | | | | [phone] | | | +--------+ + + + [...] | | | | | [place] [address] | | | | | | [phone] | | | | | | | | +--------+ + + + + | 06/26/ | Office | Cardiology | [facility] | | | 2019 | Visit | | [address] | | | | | | [address] | | | | | | [place] [address] | | | | | | [phone] | | | | | | | | +--------+ + + + + documented as of this encounter Visit Diagnoses Not on filedocumented in this encounter"
--- OUTSIDE RECORDS SUMMARY | ~2020-05-06 | XMS | Encounter Summary ---
Demographics + + + | Address | [address] | | | [place] [address] | + + + | Home Phone [...] [place], [place] | | | | | [address] | | + + + + + Care Team Providers + +------+ + | Care Stockholder Name | Role | Phone | + +------+ + PCP | Unavailable | + +------+ + Encounter Details +--------+ + + + + | Date | Type | Department | Care Team | Description | +--------+ + + + + | 12/22/ | Hospital | [facility] | | | | 1993 - | Encounter | MED CTR GENERIC PSY | | | | | | CONV DEPT [address] | | | | 12/25/ | | [place], | | | | 1993 | | [place] [address] | | | | | | [phone] | | | +--------+ + + + [...] [address] | | | | | | [place] [address] | | | | | | [phone] | | | | | | | | +--------+ + + + + | 06/26/ | Office | Cardiology | Dora De La Torre | | | 2019 | Visit | | [address] | | | | | | [address] | | | | | | [place] [address] | | | | | | [phone] | | | | | | | | +--------+ + + + + documented as of this encounter Visit Diagnoses Not on filedocumented in this encounter"
--- OUTSIDE RECORDS SUMMARY | ~2020-05-06 | XMS | Encounter Summary ---
Demographics + + + | Address | [address] | | | [place] [address] | + + + | Home Phone [...] [place] | | | | | [address] | | + + + + + Care Team Providers + +------+ + | Care Infertility Medical Assistant Name | Role | Phone | [...] | Transcriptions | + + | Interface, Last Scourer In - 10/24/2006 3:09 AM PST | | [facility] | | Road [place], [place] [address] [place] | | [facility] CenterOPERATION RECORDMed Rec No.: [id number] Date: [...]
--- OUTSIDE RECORDS SUMMARY | ~2020-05-06 | XMS | Encounter Summary ---
Demographics + + + | Address | [address] | | | [place] [address] | + + + | Home Phone [...] [place] | | | | | [address] | | + + + + + Care Team Providers + +------+ + | Care Terra Cotta Roofer Helper Name | Role | Phone | [...] + | 06/26/ | Telephone | [facility] | Frandy Teresa, | Other | | 2013 | | NEUROSURGERY [address] | DO [address] | | | | | [address] | [address] [place], [place] | | | | | [place], [place] | [id number] | | | | | [address] | | | | | | [phone] | | | +--------+ + + + [...] [address] | | | | | | [place] [address] | | | | | | [phone] | | | | | | | | +--------+ + + + + | 06/26/ | Office | Cardiology | Dora De La Torre | | | 2019 | Visit | | [address] | | | | | | [address] | | | | | | [place] [address] | | | | | | [phone] | | | | | | | | +--------+ + + + + documented as of this encounter Visit Diagnoses Not on filedocumented in this encounter"
--- OUTSIDE RECORDS SUMMARY | ~2020-05-06 | XMS | Encounter Summary ---
Demographics + + + | Address | [address] | | | [place] [address] | + + + | Home Phone [...] [place] | | | | | [address] | | + + + + + Care Team Providers + +------+ + | Care Caustic Cresylate Shift Superintendent Name | Role | Phone | [...] | Telephone | [facility] [place] | [facility], | [facility] | | 2012 | | GASTROENTEROLOGY | [place] [address] | | | | | [address] [place] | [address] | | | | | [address] [place], [place] | [place], [place] | | | | | [address] | [address] | | | | | [phone] | | | +--------+ + + + [...] [address] | | | | | | [place] [address] | | | | | | [phone] | | | | | | | | +--------+ + + + + | 06/26/ | Office | Cardiology | Dora De La Torre | | | 2019 | Visit | | [address] | | | | | | [address] | | | | | | [place] [address] | | | | | | [phone] | | | | | | | | +--------+ + + + + documented as of this encounter Visit Diagnoses Not on filedocumented in this encounter"
--- OUTSIDE RECORDS SUMMARY | ~2020-05-06 | XMS | Encounter Summary ---
Demographics + + + | Address | [address] | | | [place] [address] | + + + | Home Phone [...] [place] | | | | | [address] | | + + + + + Care Team Providers + +------+ + | Care Electric Power Superintendent Name | Role | Phone | [...] | | | | | [address] [facility] [address] | [place] [address] | | | | | [place] | [phone] | | | | | [address] | | | | | | [phone] | | | +--------+ + + + [...] Percocet prescription and faxed it to them ([facility]) this morning like I told them I would. Thank you for doing that, but it should not have been necessary. Telephone Encounter - Lincoln Cheema MD - 07/06/2014 8:59 PM PDTCalled regarding increased p ain. She was taking percocet. She was discharged to a [facility] on hydrocodone. I talked to [...] [address] | | | | | | [place] [address] | | | | | | [phone] | | | | | | | | +--------+ + + + + | 06/26/ | Office | Cardiology | Dora De La Torre | | | 2019 | Visit | | [address] | | | | | | [address] | | | | | | [place] [address] | | | | | | [phone] | | | | | | | | +--------+ + + + + documented as of this encounter Visit Diagnoses Not on filedocumented in this encounter"
--- OUTSIDE RECORDS SUMMARY | ~2020-05-06 | XMS | Encounter Summary ---
Demographics + + + | Address | [address] | | | [place] [address] | + + + | Home Phone [...] [place], [place] | | | | | [address] | | + + + + + Care Team Providers + +------+ + | Care Child Welfare Director Name | Role | Phone | + +------+ + PCP | Unavailable | + +------+ + Encounter Details +--------+ + + + + | Date | Type | Department | Care Team | Description | +--------+ + + + + | 02/02/ | Hospital | [facility] | | | | 1997 | Encounter | MED CTR EMERGENCY | | | | | | [address] | | | | | | [place] | | | | | | [address] | | | | | | [phone] | | | +--------+ + + + [...] | | | | | [place] [address] | | | | | | [phone] | | | | | | | | +--------+ + + + + | 06/26/ | Office | Cardiology | Dora De La Torre | | | 2020 | Visit | | [address] | | | | | | [address] | | | | | | [place] [address] | | | | | | [phone] | | | | | | | | +--------+ + + + + documented as of this encounter Visit Diagnoses Not on filedocumented in this encounter"
--- OUTSIDE RECORDS SUMMARY | ~2020-05-06 | XMS | Encounter Summary ---
Demographics + + + | Address | [address] | | | [place] [address] | + + + | Home Phone [...] [place] | | | | | [address] | | + + + + + [...] | | | | | ECHO | [place], [place] | | | | | | Complete | [address] | | | | | | | Phone: | | | | | | | [phone] | | | | | | | Fax: | | | | | | | [phone] | | + +--------+ + + + + Reason for Visit + + + | Reason | Comments | + + + | Follow-up | 6 month | + + + Encounter Details +--------+---------+ + + + | Date | Type | Department | Care Team | Description | +--------+---------+ + + + | 04/03/ | Office | [facility] | Desiree Peterson DO | Left bundle branch | | 2020 | Visit | CARDIOLOGY [place] | [address] | block (Primary Dx); | | | | [address] | [place], [place] | Benign essential | | | | [address] | [address] | HTN; New onset left | | | | [place], [place] | | bundle branch block | | | | [address] | | (LBBB); Obesity, | | | | [phone] | | Class III, BMI | | | | | | 40-49.9 (morbid | | | | | | obesity) ([facility]); | | | | | [...] Peterson DO - 04/03/2020 10:20 AM PDT [facility] Cardiology Cardiology Follow Up Note Reason for [...] rtake in exercise. She recently got a ChiOreeua and has been walking him more regularly. 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 Blood Glucose Monitoring Suppl (Loci ControlsIO FLEX SYSTEM) w/Device KIT by Does not ap ply route. budesonide-formoterol (SYMBICORT) 160-4.5 MCG/ACT inhaler Inhale 2 puffs into the lungs 2 (two) times daily. Calcium Carbonate Antacid 1000 MG tablet Take 1,000 mg by mouth 3 (three) times daily. Cholecalciferol (VITAMIN D3) 63432 units CAPS Take by mouth once a [...] ALT 76, alkaline phosphatase 134. Labs: 10/20/2019:( [facility]) CBC: WBC 7.1, RBC 4.93, [...] | | | | | [place] [address] | | | | | | [phone] | | | | | | | | +--------+ + + + + | 06/26/ | Office | Cardiology | Dora De La Torre | | | 2020 | Visit | | [address] | | | | | | [address] | | | | | | [place] [address] | | | | | | [phone] | | | | | | | [...]
--- OUTSIDE RECORDS SUMMARY | ~2020-05-06 | XMS | Encounter Summary ---
Demographics + + + | Address | [address] | | | [place] [address] | + + + | Home Phone [...] [place] | | | | | [address] | | + + + + + Care Team Providers + +------+ + | Care Sanitary Chemist Name | Role | Phone | [...] + + | 07/19/ | Office | [facility] | Desiree Peterson DO | Syncope, unspecified | | 2019 | Visit | CARDIOLOGY [place] | [address] | syncope type | | | | [address] | [place], [place] | (Primary Dx); | | | | [address] [place] [address] | [address] | Essential | | | | [place] | | hypertension; | | | | [address] | | Irregular heartbeat | | | | [phone] | | | +--------+---------+ + + + [...] Peterson DO - 07/19/2019 10:40 AM PDT [facility] Cardiology Cardiology Follow Up Note [...] rtake in exercise. She recently got a SterraClimb and has been walking him more regularly. [...] by mouth daily. Blood Glucose Monitoring Suppl (Clearwave VERIO FLEX SYSTEM) w/Device KIT by Does not ap ply route. budesonide-formoterol (SYMBICORT) 160-4.5 MCG/ACT inhaler Inhale 2 puffs into the lungs 2 (two) times daily. Calcium Carbonate Antacid 1000 MG tablet Take 1,000 mg by mouth 3 (three) times daily. Cholecalciferol (VITAMIN D3) 70919 units CAPS Take by mouth once a [...] | | | | | [place] [address] | | | | | | [phone] | | | | | | | | +--------+ + + + + | 06/26/ | Office | Cardiology | Dora De La Torre | | | 2020 | Visit | | [address] | | | | | | [address] | | | | | | [place] [address] | | | | | | [phone] | | | | | | | [...]
--- OUTSIDE RECORDS SUMMARY | ~2020-05-06 | XMS | Encounter Summary ---
Demographics + + + | Address | [address] | | | [place] [address] | + + + | Home Phone | | + + + | Preferred Language | Unknown | + + + | Marital Status | Single | + + + | Pentecostal Affiliation | Unknown | + + + [...] [place] | | | | | [address] | | + + + + + Care Team Providers + +------+ + | Care Cable Operator Name | Role | Phone | [...] | | | | | | [place] [address] | | | | | | [phone] | | | | | | | [...] in | | | | | | [place] with a | | | | | [...] | | | | | | Laboratory, [place], | | | | | | [place], [...] by | | | | | | [id number]-[id number]-G: | | | | | | Increased [...] istryMHC-1: | | | | | | [id number] stain | | | | | | [...] | + + + + + | [facility] | [address] | [place] [address] | | | PATHOLOGY | [place] | | | + + + + + documented in this encounter Visit Diagnoses Not on filedocumented in this encounter
--- OUTSIDE RECORDS SUMMARY | ~2020-05-06 | XMS | Encounter Summary ---
Demographics + + + | Address | [address] | | | [place] [address] | + + + | Home Phone [...] [place], [place] | | | | | [address] | | + + + + + Care Team Providers + +------+ + | Care Senior Laboratory Technician Name | Role | Phone | + +------+ + PCP | Unavailable | + +------+ + Encounter Details +--------+ + + + + | Date | Type | Department | Care Team | Description | +--------+ + + + + | 05/25/ | Hospital | [facility] | | | | 1991 | Encounter | MED CTR LABORATORY | | | | | | [address] | | | | | | [place] | | | | | | [address] | | | | | | [phone] | | | +--------+ + + + [...] | | | | | [place] [address] | | | | | | [phone] | | | | | | | | +--------+ + + + + | 06/26/ | Office | Cardiology | Dora De La Torre | | | 2020 | Visit | | [address] | | | | | | [address] | | | | | | [place] [address] | | | | | | [phone] | | | | | | | | +--------+ + + + + documented as of this encounter Visit Diagnoses Not on filedocumented in this encounter"
--- OUTSIDE RECORDS SUMMARY | ~2020-05-06 | XMS | Encounter Summary ---
Demographics + + + | Address | [address] | | | [place] [address] | + + + | Home Phone [...] [place] | | | | | [address] | | + + + + + Care Team Providers + +------+ + | Care Powerhouse Helper Name | Role | Phone | + +------+ + | Natalee Andersen NP | PCP | | + +------+ + Encounter Details +--------+ + + + + | Date | Type | Department | Care Team | Description | +--------+ + + + + | 06/25/ | Hospital | [facility] | Frandy Teresa, | Diabetes mellitus | | 2014 | Encounter | MED CTR OR INTRA OP | DO [address] | (HCC) (Primary Dx) | | | | [address] | [address] [place], [place] | | | | | [place], [place] | [address] | | | | | [address] | | | | | | [phone] | | | +--------+ + + + [...] + + + +---------+ + + | Zimmerman-3 Fatty | Take 1,000 mg by | [...] this en counter H&P Notes CHAPITO ABREU [facility] - 06/21/2014 12:00 AM PDT [...] 06/26/2014 12:00 AM PDT NBASE SCAN [facility] - 06/12/2014 12:00 AM PDTElectronically signed by Mariah Schulte at 06/12 7:30 AM PDTONBASE SCAN [facility] - 06/11/2014 12:00 AM PDT documented in this encounter Miscellaneous Notes Miscellaneous - ONBASE SCAN [facility] - 06/26/2014 12:00 AM PDT [...] stenosis, lumbar region, without neurogenic claudication ). Web Mobile Designer visit is in response to an electronic spiritual care consult request. Patient wa s resting comfortably in bed; she was attended by her mom and dad - both sate nearby and see med very attentive and supportive. Cindy is Caodaism, attends [employer], and is strong in her rangel. She is excited about taking care of her back problem and fe els very secure in Dr. Teresa's care. She welcomed prayer, and expressed appreciation for [facility] visit. Follow up with regular visits, emotional and spiritual support. iscellaneo us - ONBASE SCAN [facility] - 06/25/2014 12:00 AM PDTElectronically [...] [address] | | | | | | [place] [address] | | | | | | [phone] | | | | | | | | +--------+ + + + + | 06/26/ | Office | Cardiology | Dora De La Torre | | | 2019 | Visit | | [address] | | | | | | [address] | | | | | | [place] [address] | | | | | | [phone] | | | | | | | [...] | mL/min/1.73m2 | DORA | | | GHANAIAN | RATE,ESTIMATED | | MEDICAL | | | | mL/min/1.89x3Vhrc than | | CENTER - | | [...] + | [facility] | [address] | [place] | [phone] | | [facility] | | [address] | | | - LABORATORY | | | | + + + + + | [facility] | [address] | [place] | | | [facility] | | [address] | | | [...] + | [facility] | [address] | [place], [place] | [phone] | | [facility] | | [address] | | | - LABORATORY | | | | + + + + + | [facility] | [address] | [place], [place] | | | [facility] | | [address] | | | [...] + | [facility] | [address] | [place] | [phone] | | [facility] | | [address] | | | - LABORATORY | | | | + + + + + | [facility] | [address] | [place] | | | [facility] | | [address], [facility] | | | - [...] | | | [facility] | | [address] | | | - BLOOD BANK | | | | + + + + + POC Glucose (06/25/2014 1:48 PM PDT) + +-------+ + + + | Component | Value | Ref Range | Performed | Pathologist | | | | | At | Signature | + +-------+ + + + | Glucose, | 113 | 79 - 150 mg/dL | [facility] | | | POC | | | [...] + | [facility] | [address] | [place], [place] | [phone] | | [facility] | | [address] | | | - LABORATORY | | | | + + + + + | [facility] | [address] | [place], [place] | | | [facility] | | [address], [facility] | | | - [...]
--- OUTSIDE RECORDS SUMMARY | ~2020-05-06 | XMS | Encounter Summary ---
Demographics + + + | Address | [address] | | | [place] [address] | + + + | Home Phone [...] [place] | | | | | [address] | | + + + + + Care Team Providers + +------+ + | Care Check Processing Clerk Name | Role | Phone | [...] + + | 08/16/ | Documentati | [facility] | Katharine Moncada, | Other (urgent | | 2019 | on | CARDIOLOGY [place] | Technologist | report) | | | | [address] | | | | | | [place] | | | | | | [address] | | | | | | [phone] | | | +--------+ + + + [...] | | | | | [place] [address] | | | | | | [phone] | | | | | | | | +--------+ + + + + | 06/26/ | Office | Cardiology | Dora De La Torre | | | 2020 | Visit | | [address] | | | | | | [address] | | | | | | [place] [address] | | | | | | [phone] | | | | | | | | +--------+ + + + + documented as of this encounter Visit Diagnoses Not on filedocumented in this encounter"
--- OUTSIDE RECORDS SUMMARY | ~2020-05-06 | XMS | Encounter Summary ---
Demographics + + + | Address | [address] | | | [place] [address] | + + + | Home Phone [...] [place] | | | | | [address] | | + + + + + Care Team Providers + +------+ + | Care Military Logistics Specialist Name | Role | Phone | [...] | | | spondylolist | | [address] | | | | | hesis | | [place], | | | | | Spinal | | [place] [address] | | | | | stenosis, | | Phone: | | | | | lumbar | | [phone] | | | | | region, | | Fax: | | | | | without | | [phone] | | | | | neurogenic | [...] + | 07/02/ | Hospital | [facility] | Frandy Teresa, | Degenerative disc | | 2013 - | Encounter | MED CTR SUR[facility] | DO [address] | disease, lumbar | | | | [address] | [place] [address] [address] | (Primary Dx); | | 07/05/ | | [place] [address] | [phone] | Diabetes mellitus | | 2013 | | [phone] | | ([facility]); Disturbance | | | [...] might be different fro m the original. [facility] DISCHARGE SUMMARY PATIENT NAME: Cindy [...] discharge to SNF. DISPOSITION: SNF ([facility]) DISCHARGE MEDICATIONS Medications prior to admission that [...] Take 15 mg by mouth nightl y. Saltese-3 Fatty Acids (FISH OIL CONCENTRATE) 1000 MG [...] + + + +---------+ + + | Saltese-3 Fatty | Take 1,000 mg by | [...] 7:43 AM PDT [facility] PROGRESS NOTE Pt. Name/Age/: Cindy Arndt 58 y.o. 1955 Med. Record Number: [id number] Date of admission: 07/02/2014 Subjective: The patient [...] home medications. D/C plan: Home tomorrow with [facility]. D/c mari drain and riley cath today. 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 Patient Active Problem List Diagnosis LUMBAR DISC [...] PA-C - 07/03/2014 7:13 AM PDT . [facility] PROGRESS NOTE Pt. Name/Age/: Cindy Arndt 58 y.o. 1955 Med. Record Number: [id number] Date of admission: 07/02/2014 Subjective: The patient [...] Chris Nicole, 07/03/2014 7:13 [facility] on Smith, KRIS - 07/03/2014 6:50 AM [...] Teresa DO, 07/02/2014 11:15 [facility] signed by Frandy Teresa DO at 06/2014 11:15 AM PDTFrandy Teresa DO - 07/02/2014 11:15 AM [id number] [facility], [address] [place], [place] [id number] FAX: NEUROSURGERY HISTORY AND PHYSICAL EXAMINATION CHIEF [...] Take 15 mg by mouth earnestine eldridge. Saltese-3 Fatty Acids (FISH OIL CONCENTRATE) 1000 MG [...] deficits with short or long term care pharmacist memory. CRANIAL NERVES: II: Acuity is intact. [...] Intrinsics 5 5 Ulnar Intrinsics 5 5 Edging Machine Feeder Strength 5 5 Hip Flexion 5 4* [...] documented in this en counter Procedure Notes [facility] - 07/12/2014 12:00 AM PDT 14 1[facility] 07/04/2014 12:00 AM PDT [facility] - 07/02/2014 12:00 AM PDT documented in this encounter Miscellaneous Notes Plan of Care - [facility] - 07/12/2014 12:00 AM PDT iscellaneous - [facility] - 07/12/2014 12:00 AM PDTElec tronically signed by Mariah Schulte at 07/12/2014 1:45 PM PDTMiscellaneous - [facility] - 07/12/2014 12:00 AM PDT i scellaneous - [facility] - 07/12/2014 12:00 [...] and I will be going to a long-term as I have 16 steps to my [...] TBD) Equipment Recommendations: tub bench;hand held shower head;beck tender;comfort height toilet ( pt. has all necessary [...] PA-C Consultants: none PCP: Natalee Andersen [facility] transferring to: [facility] Provider after transfer: PCP and Dr. Frandy Teresa CODE STATUS: [x] Attempt CPR [] Do not resuscitate If patient is pulseless and not breathing, RN/SURVEY QUESTIONNAIRE DESIGNER may pronounce . Advanced Directives included: [] [...] for this patient. Diet: [] As tolerated GROUP HOME PARAPROFESSIONAL may upgrade or downgrade diet as condition Indicates. [x] RN may downgrade diet as indicated. Type: [] Continue current diet of: Diet and Supplements Diet DIET CONSISTENT CARBOHYDRATE Number of Occurrences: -1 Days [] Other: Consistency/Precautions: [] Whole [] Thin Liquids [] Cut-up [] [place] Thick [] Advanced Chopped [] Honey Thickened [] Chopped [] Advanced Ground [] 1:1 feedings [] Ground/Pureed [] Other: Tube Feedings: [] PEG [] GT [] JT [] NGT [] Formula type: (Pediatric Registered Nurse may change/substitute if indicated). [] Continuous Rate: [...] & Management for: ____same as above [] GROUP HOME PARAPROFESSIONAL Evaluation &Management for: [] Other: Wound/Skin Care: [...] Take 15 mg by mouth ni linda. Saltese-3 Fatty Acids (FISH OIL CONCENTRATE) 1000 MG [...] (pediatric) IChris PA-C, certify that post hospital fpc care is medically nec essary on a continuing basis for any of the conditions for which he/she received care during this hospitalization. Check one: [x] Skilled [] Intermediate Additional Orders/Instructions: Physician's signature:__Chris Nicole PA-C 07/05/2014 13:18 [facility] JMNDKarsten [facility] USE ONLY: [] [...] tolerate progressive walking and doing stairs du [facility] hospital stay due to multiple pain c/o. Attempted to see pt. 1145, however had just rec eived pain medication and requested PT return, SPL 9/10. At 1205 pt contacted PT for assist OOB due to left LE spasms and need for position change. Sitting at EOB on arrival, QUALITY AUDITOR pres ent. Pt. donned LSO brace, stood [...] endurance. When patient is walking in [facility] with a regular FWW she has to stop frequently and states she feels very weak, like sh e may fall. Patient lives alone. Outpatient prescriptions are filled at [facility] in [facility]. Electronically signed by: Franca Narvaez RN 07/05/2014 10:43 lan of Adilene Layne Rivers - 07/05/2014 10:39 AM PDTFaxed referral to Gabriela Stout and Lidia Tran. [place] : [id number] and [place]: [id number] Electronically signed by: Layne Collado 07/05/2014 10:40 Received a call from [facility]. They can accept Cindy. Received a call from [facility] Tr[facility] and they can't accept Cindy. Tanna from [facility] called and they don't have any beds at this time Electronically signed by: Layne Collado 07/05/2014 12:22 Started the SNF packet. Electronically signed by: Layne Collado 07/05/2014 12:56 lan of [place] - Sandhya Benites RN - 07/05/2014 5:14 [...] TBD) Equipment Recommendations: tub bench;hand held shower head;beck tender;comfort height toilet ( pt. has all necessary equipment) Planned Interventions: ADL retraining;transfer training Patient Status/Goals Reflects last filed data of patient status; may be from multiple contributors. Grooming: Status: did not occur today Assist: Utilizes: STG: Status: New Goal:modified independent LTG: Status: Goal: UE Dressing: Status: SBA Assist: Utilizes: STG: Status: Goal: LTG: Status: Goal: LE Dressing: Status: SBA Utilizes: beck tender STG: Status: New Goal: modified independent LTG: [...] bed mobil ity. Pt has been using APN and pain pills during the night. Zofran [...] by herself in a small apartment in [place]. Patient states she has her apartment set [...] to come from [facility] in [place]. She states the Said she might benefit [facility] upon discharge. She would like me to contact [facility] to giv e them a heads up. I called and spoke to Summer at [facility] , told her patients PCP i [...] Pt. resting in bed on arrival, used APN x 2 during session. SPL 5/10. Pt. hoping to urinate ladies underwear operator to straight cath. Sidelying to sit [...] TBD) Equipment Recommendations: tub bench;hand held shower head;beck tender;comfort height toilet ( pt. has all necessary [...] & Review . Outcome: Progressing Pt using APN and PO pain pills, c/o numbness on [...] and on a continuous oximeter for her APN. She was unable to do her IS because o f the medications. She has the IS at bedside with a goal of 2400. She did not require additi onal respiratory care throughout the evening. p Note - Frandy Teresa, - 07/02/2014 2:25 PM PDTDATE: 07/02/2014 SURGEON: Frandy Teresa MD. SOCIAL INSURANCE SPECIALIST: ZANE Oh PREOPERATIVE DIAGNOSES 1. Spondylolisthesis, [...] x 26 mm Capstone PEEK cage from [employer] was chosen. It was filled with [...] Note Cindy Arndt 58 y.o. female 1955 [id number] Proc. Date 07/02/2014 Preop Dx Spondylolisthesis L5-S1 Postop Dx same Procedure Procedure(s):MIS L5-S1 TRANSFORAMINAL LUMBAR INTERBODY FUSION Anesthesia General Surgeon Frandy Teresa DO Ergonomics Engineer ZANE Oh EBL 100 mL Findings Findings consistent with scheduled procedure. No other abnormalities found. Complications none Specimens * No specimens in log * Drains Electronically signed by: Frandy Teresa DO 07/02/2014 14:22 [facility] documented in this en counter Plan of [...] [address] | | | | | | [place] [address] | | | | | | [phone] | | | | | | | | +--------+ + + + + | 06/26/ | Office | Cardiology | Dora De La Torre | | | 2020 | Visit | | [address] | | | | | | [address] | | | | | | [place] [address] | | | | | | [phone] | | | | | | | [...] + | [facility] | [address] | [place] | [phone] | | [facility] | | [address] | | | - LABORATORY | | | | + + + + + | [facility] | [address] | [place] | | | [facility] | | [id number] [...] + | [facility] | [address] | [place], [place] | [phone] | | [facility] | | [address] | | | - LABORATORY | | | | + + + + + | [facility] | [address] | [place], [place] | | | [facility] | | [address] [...] 128 | 79 - 150 mg/dL | BIRD [...] [address] | [place] | [phone] | | [facility] | | [address] | | | - LABORATORY | | | | + + + + + | [facility] | [address] | [place], [place] | | | [facility] | | [address] [...] + | [facility] | [address] | [place] | [phone] | | [facility] | | [address] | | | - LABORATORY | | | | + + + + + | [facility] | [address] | [place], [place] | | | [facility] | | [address] | | | - LABORATORY | | | | + + + + + POC Glucose (07/04/2014 5:55 PM PDT) + +-------+ + + + | Component | Value | Ref Range | Performed | Pathologist | | | | | At | Signature | + +-------+ + + + | Glucose, | 119 | 79 - 150 mg/dL | JANE [...] [address] | [place] | [phone] | | [facility] | | [address] | | | - LABORATORY | | | | + + + + + | [facility] | [address] | [place] | | | [facility] | | [address] [...] + | [facility] | [address] | [place] | [phone] | | [facility] | | [address] | | | - LABORATORY | | | | + + + + + | [facility] | [address] | [place], [place] | | | [facility] | | [address] | | | - LABORATORY | | [...] [address] | [place] | [phone] | | [facility] | | [address] | | | - LABORATORY | | | | + + + + + | [facility] [address] | [address] | [place] | | | [facility] | | [address], [facility] | | | - [...] (H) | 79 - 150 mg/dL | JANE [...] + | [facility] | [address] | [place], [place] | [phone] | | [facility] | | [address] | | | - LABORATORY | | | | + + + + + | [facility] | [address] | [place], [place] | | | [facility] | | [id number] [place] [address] | | | - LABORATORY | | [...] + | [facility] [facility] | [address] | [place], [place] | [phone] | | [facility] | | [address] | | | - LABORATORY | | | | + + + + + | [facility] | [address] | [place], [place] | | | [facility] | | [id number] [place] [address] | | | - LABORATORY | | [...] | of hardware for posterior fusion from V2zfazola S1 with interbody hardware at L5-S1. The [...] + | MISCELLANEOUS LAB | | | [phone] | + +---------+ + + | MISCELANIOUS LAB | | | [phone] | + +---------+ + + POC Glucose [...] + | [facility] | [address] | [place] | [phone] | | [facility] | | [address] | | | - LABORATORY | | | | + + + + + | [facility] | [address] | [place] | | | [facility] | | [address], [facility] | | | - LABORATORY | | | | + + + + + POC Glucose (07/03/2014 6:48 AM PDT) + +-------+ + + + | Component | Value | Ref Range | Performed | Pathologist | | | | | At | Signature | + +-------+ + + + | Glucose, | 117 | 79 - 150 mg/dL | [facility] [...] + | [facility] | [address] | [place], [place] | [phone] | | [facility] | | [address] | | | - LABORATORY | | | | + + + + + | [facility] | [address] | [place], [place] | | | [facility] | | [address] [...] + | [address] | [address] | [place] | [phone] | | [facility] | | [address] | | | - LABORATORY | | | | + + + + + | [facility] [facility] | [address] | [place] | | | [facility] | | [address] [...] + | [facility] | [address] | [place], [place] | [phone] | | [facility] | | [address] | | | - LABORATORY | | | | + + + + + | [facility] | [address] | [place], [place] | | | [facility] | | [address] [...] [address] | [place] | [phone] | | [facility] | | [address] | | | - LABORATORY | | | | + + + + + | [facility] | [address] | [place] | | | [facility] | | [address] [...] [facility] | | [address] | | | - BLOOD BANK | [...] | | | NIGHTLY, First dose on Tue | | PM PDT | | [...] | | | | Starting 07/02/14 at 1448, | | | | | [...] | | | | | Pain, Starting Tue07/02/14 at | | | | | | [...] PDT | | | | | Starting Tu07/02/14 at 1635, | | | | | [...] + +---------+ +---+---+---+ | morphine 5 mg/mL APN syringe | New Bag | 07/02/20 | [...] | | | | Dose(mg): 0, Starting APN | | | | | | | Dose(mg): 1, Incremental Increase | | | | | | | APN Dose(mg): 0.5, Maximum APN | | | | | | | [...] | | | dose on Tue07/02/14 at 2115 | | | | | [...] dose, [place]E [place]: enoch | | | cammy, | | + +---+ | | | [...] PM PDT | | | | | Tue07/02/14 at 1015, Pre-op | | | | | | + +---------+ +---+-------+---+ +---------+ +---+-------+---+ | New Bag | 07/02/20 | | 100 | | | | 14 10:51 | | mL/hr | | | | AM PDT | | | | +---------+ +---+-------+---+ +---+---+ | | | +---+---+ documented in this encounter
--- OUTSIDE RECORDS SUMMARY | ~2020-05-06 | XMS | Encounter Summary ---
Demographics + + + | Address | [address] | | | [place] [address] | + + + | Home Phone [...] [place] | | | | | [address] | | + + + + + Care Team Providers + +------+ + | Care Tube Sorter Name | Role | Phone | [...] | 07/01/ | Telephone | [facility] | Frandy Teresa, | Other (Surgery ) | | 2013 | | NEUROSURGERY [address] | DO [address] | | | | | [address] | [address] [place], [place] | | | | | [place], [place] | [id number] | | | | | [address] | | | | | | [phone] | | | +--------+ + + + [...] [address] | | | | | | [place] [address] | | | | | | [phone] | | | | | | | | +--------+ + + + + | 06/26/ | Office | Cardiology | Dora De La Torre | | | 2019 | Visit | | [address] | | | | | | [address] | | | | | | [place] [address] | | | | | | [phone] | | | | | | | | +--------+ + + + + documented as of this encounter Visit Diagnoses Not on filedocumented in this encounter"
--- OUTSIDE RECORDS SUMMARY | ~2020-05-06 | XMS | Clinical Summary ---
Demographics + + + | Address | [address] | | | [place] [address] | + + + | Home Phone [...] [place] | | | | | [address] | | + + + + + Care Team Providers + +------+ + | Care Regulatory Law Specialist Name | Role | Phone | [...] | | | | e | | (Matchpin VERIO FLEX | | | | | [...] La Torre | Medication Question | | 2019 | | | CAROLINE Mendez | | +--------+ + + + + | 04/24/ | Office | Cardiology | Dora De La Torre | Left bundle branch | | 2019 | Visit | | CAROLINE Mendez | block (Primary Dx); | | | | | | Paroxysmal A-fib | | | | | | (HCC); Mild | | | | | | hyperlipidemia; | | | | | | Benign essential | | | | | | HTN; Poorly | | | | | | controlled type 2 | | | | | | diabetes mellitus | | | | | | ([facility]); Syncope, | | | | [...] | | | | | | type ([facility]); Rapid | | | | | | palpitations; | | | | | | Obstructive sleep | | | | | | apnea syndrome; | | | | | | Psychophysiological | | | | | | insomnia | +--------+ + + + + | 04/03/ | Office | Cardiology | Desiree Peterson DO | Left bundle branch | | 2019 | Visit | | | block (Primary [...] | | obesity) ([facility]) | +--------+ + + + + | 02/06/ | Telephone | Cardiology | Dora De La Torre | Patient Concerns | | 2019 | | | CAROLINE Mendez | | +--------+ + + + + | 02/05/ | Telephone | Cardiology | Ashley Chávez | 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 ) | +--------+ + + [...] [address] | | | | | | [place] [address] | | | | | | [phone] | | | | | | | | +--------+ + + + + | 06/26/ | Office | Cardiology | Dora De La Torre | | | 2019 | Visit | | [address] | | | | | | [address] | | | | | | [place] [address] | | | | | | [phone] | | | | | | | [...] | [employer] - | | 04/02/ | [id number] | | 5ccImplanted: Qty: 1 on | | Spine | MEDT | | 2019 | | | 07/02/2014 by Frandy Teresa | | Lumbar | | | | /[id number] | | [facility] | | | | | | 6-020 | | [facility] | | | | | | / | + +------+--------+ +--------+--------+--------+ | Graft Infuse Bone Kit Xxs - | | N/A: | SO[employer]OR | | 01/21/ | [id number] | | [id number]: Qty: 1 on | | Spine | DANEK - DIV | | 2014 | 0 / | | 07/02/2014 by Frandy Teresa | | Lumbar | [employer] | | | /[id number] | | A, DO at [facility] | | | - SFDK | | | 06AAH | | [facility] | | | | | | | + +------+--------+ +--------+--------+--------+ | Imp Spn Spcr Cpstn 8x26mm - | | N/A: | SO[employer]OR | | 01/11/ | [id number] | | [id number]: Qty: 1 on | | Spine | DANEK - DIV | | 2021 | 6 / | | 07/02/2014 by Frandy Teresa | | Lumbar | [employer] | | | /[id number] | | A, DO at [facility] | | | - SFDK | | | 928 | | [facility] | | | | | | | + +------+--------+ +--------+--------+--------+ | Set Scrw Ns G5 Brk Off Ti | | N/A: | SOFAMOR | | | [id number] | | 4.75 - [id number]: | | Spine | DANEK - DIV | | | 0 / / | | Qty: 4 on 07/02/2014 by | | Lumbar | [employer] | | | | | Frandy Teresa DO at [facility] | | | - SFDK | | | | | [facility] | | | | | | | | [facility] | | | | | | | + +------+--------+ +--------+--------+--------+ | RodImplanted: Qty: 1 on | | N/A: | | | | [id number] | | 07/02/2014 by Frandy Teresa | | Spine | | | | 540 / | | DO Ronak at [facility] | | Lumbar | | | | / | | [facility] | | | | | | | + +------+--------+ +--------+--------+--------+ | RodImplanted: Qty: 1 on | | N/A: | MEDTROL - | | | [id number] | | 07/02/2014 by Frandy Teresa | | Spine | MDTR | | | 545 / | | DO Ronak at [facility] | | Lumbar | | | | / | | [facility] | | | | | | | + +------+--------+ +--------+--------+--------+ | Screw 7.5x50mm Sextant - | | N/A: | [employer] - | | | [id number] | | [id number]: Qty: 1 on | | Spine | MEDT | | | [id number] | | 07/02/2014 by Frandy Teresa | | Lumbar | | | | / / | | DO Ronak at [facility] | | | | | | | | [facility] | | | | | | | + +------+--------+ +--------+--------+--------+ | Cannulated ScrewImplanted: | | N/A: | MEDTROL - | | | [id number] | | Qty: 1 on 07/02/2014 by | | Spine | MDTR | | | [id number] | | Frandy Teresa DO at [facility] | | Lumbar | | | | / / | | [facility] | | | | | | | | CENTER | | | | | | | + +------+--------+ +--------+--------+--------+ | Cannulated ScrewImplanted: | | N/A: | [employer] - | | | [id number] | | Qty: 1 on 07/02/2014 by | | Spine | MEDT | | | [id number] | | Frandy Teresa DO at [facility] | | Lumbar | | | [...] obesity) ([facility]) | | + +--------+ + [...] | | | | | DESIREE DONNELLY (2800) on | | | | | | [...] +--------+ +---------+--------+ | MEDICARE | MEDICA | [id number] | 02/22/20 | [phone] | | Medica | | | RE | | 09-Pre | 5 | | re | | | PART A | | sent | | | | | | AND B | | | | | | + +--------+ +--------+ +---------+--------+ | MEDICARE | MEDICA | [id number] | 02/22/20 | [phone] | | Medica [...] [place] | | | 1 (Home) | [address] | + +--------+ +--------+ + + | Cindy Arndt | Person | Self | [birth year] | [address] | | | al/Fam | | 1955 | [phone] | [address] [place], [place] | | | [place] | | | 1 (Home) | [address] | + +--------+ +--------+ + + Advance Directives + + + + + | Type | Date Recorded | Patient | Explanation | | | | Union Representative | | + + + + + | Power of | | | | | Bindery Machine Tender | | | | + + + [...]
--- OUTSIDE RECORDS SUMMARY | ~2020-05-06 | XMS | Encounter Summary ---
Demographics + + + | Address | [address] | | | [place] [address] | + + + | Home Phone [...] [place], [place] | | | | | [address] | | + + + + + Care Team Providers + +------+ + | Care Stone Breaker Name | Role | Phone | + +------+ + PCP | Unavailable | + +------+ + Encounter Details +--------+ + + + + | Date | Type | Department | Care Team | Description | +--------+ + + + + | 12/24/ | Hospital | [facility] | | | | 1998 | Encounter | MED CTR XRAY [address] | | | | [address] | | | | | | [place] [address] | | | | | | [phone] | | | +--------+ + + + [...] | | | | | [place] [address] | | | | | | [phone] | | | | | | | | +--------+ + + + + | 06/26/ | Office | Cardiology | Dora De La Torre | | | 2019 | Visit | | [address] | | | | | | [address] | | | | | | [place] [address] | | | | | | [phone] | | | | | | | | +--------+ + + + + documented as of this encounter Visit Diagnoses Not on filedocumented in this encounter"
--- OUTSIDE RECORDS SUMMARY | ~2020-05-06 | XMS | Encounter Summary ---
Demographics + + + | Address | [address] | | | [place] [address] | + + + | Home Phone [...] [place], [place] | | | | | [address] | | + + + + + Care Team Providers + +------+ + | Care Manager Corporate Communications Name | Role | Phone | + +------+ + PCP | Unavailable | + +------+ + Encounter Details +--------+ + + + + | Date | Type | Department | Care Team | Description | +--------+ + + + + | 05/29/ | Hospital | [facility] | | | | 1991 | Encounter | MED CTR LABORATORY | | | | | | [address] | | | | | | [place] | | | | | | [address] | | | | | | [phone] | | | +--------+ + + + [...] | | | | | [place] [address] | | | | | | [phone] | | | | | | | | +--------+ + + + + | 06/26/ | Office | Cardiology | Dora De La Torre | | | 2020 | Visit | | [address] | | | | | | [address] | | | | | | [place] [address] | | | | | | [phone] | | | | | | | | +--------+ + + + + documented as of this encounter Visit Diagnoses Not on filedocumented in this encounter"
--- OUTSIDE RECORDS SUMMARY | ~2020-05-06 | XMS | Encounter Summary ---
Demographics + + + | Address | [address] | | | [place] [address] | + + + | Home Phone [...] [place], [place] | | | | | [address] | | + + + + + Care Team Providers + +------+ + | Care Licensed Optical Dispenser Name | Role | Phone | + [...] | | | | | | [address] [facility] | | | | | | [place], [place] | | | | | | [address] | | | | | | [phone] | | | +--------+ + + + [...] | | | | | [place] [address] | | | | | | [phone] | | | | | | | | +--------+ + + + + | 06/26/ | Office | Cardiology | Dora De La Torre | | | 2020 | Visit | | [address] | | | | | | [address] | | | | | | [place] [address] | | | | | | [phone] | | | | | | | | +--------+ + + + + documented as of this encounter Visit Diagnoses Not on filedocumented in this encounter"
--- OUTSIDE RECORDS SUMMARY | ~2020-05-06 | XMS | Encounter Summary ---
Demographics + + + | Address | [address] | | | [place] [address] | + + + | Home Phone [...] [place] | | | | | [address] | | + + + + + Care Team Providers + +------+ + | Care Carpet Renovator Name | Role | Phone | [...] + + | 08/30/ | Telephone | [facility] | Ashley Chávez | Other (Patient wants | | 2018 | | CARDIOLOGY [place] | Pollo, Seismograph Recorder | to take monitor | | | | [address] | | off. ) | | | | [address] | | | | | | [place] | | | | | | [address] | | | | | | [phone] | | | +--------+ + + + [...] Miscellaneous Notes Telephone Encounter - Ashley Chávez, Seismograph Recorder - 08/30/2019 9:19 AM Bertagutierrez t called [...] thankful for the news. Patient stated understanding JDW:JUDICIAL ADMINISTRATIVE ASSISTANT-AAMA. [facility] umented in this encounter Plan of Treatment +--------+ + + + + | Date | Type | Specialty | Care Team | Description | +--------+ + + + + | 05/29/ | Procedure | Cardiology | RoxannDora del rosario | | 2019 | visit | | [address] | | | | | | [address] | | | | | | [place] [address] | | | | | | [phone] | | | | | | | | +--------+ + + + + | 06/26/ | Office | Cardiology | Dora De La Torre | | | 2020 | Visit | | [address] | | | | | | [address] | | | | | | [place] [address] | | | | | | [phone] | | | | | | | | +--------+ + + + + documented as of this encounter Visit Diagnoses Not on filedocumented in this encounter"
--- OUTSIDE RECORDS SUMMARY | ~2020-05-06 | XMS | Encounter Summary ---
Demographics + + + | Address | [address] | | | [place] [address] | + + + | Home Phone [...] [place], [place] | | | | | [address] | | + + + + + Care Team Providers + +------+ + | Care Cytometry Technologist Name | Role | Phone | + +------+ + PCP | Unavailable | + +------+ + Encounter Details +--------+ + + + + | Date | Type | Department | Care Team | Description | +--------+ + + + + | 12/09/ | Hospital | [facility] | Serafin Bautista | | | 2011 | Encounter | MED CTR XRAY [address] | [address], [address] | | | | | [place] | [place] | | | | | [place] [address] | [address] | | | | | [phone] | | | +--------+ + + + [...] | | | | | [place] [address] | | | | | | [phone] | | | | | | | | +--------+ + + + + | 06/26/ | Office | Cardiology | Dora De La Torre | | | 2019 | Visit | | [address] | | | | | | [address] | | | | | | [place] [address] | | | | | | [phone] | | | | | | | [...] [facility] Diagnostic Imaging Department | [facility] | | [address] [facility] | [facility] | | PROCEDURE NOTE EPIDURAL [...] Juan, Rad Conversion - 11/30/2013 4:45 PM [facility] | | Diagnostic Imaging Department | [...] | | + +---------+ + + | [address] [place] | | | | | [place] | | | | + +---------+ + + documented in this encounter Visit Diagnoses Not on filedocumented in this encounter"
--- OUTSIDE RECORDS SUMMARY | ~2020-05-06 | XMS | Encounter Summary ---
Demographics + + + | Address | [address] | | | [place] [address] | + + + | Home Phone [...] [place] | | | | | [address] | | + + + + + Care Team Providers + +------+ + | Care Auto Body Repairman Name | Role | Phone | + [...] + + | 06/28/ | Telephone | [facility] | Ashley Chávez | Other (Patient | | 2018 | | CARDIOLOGY [place] Abad, Swimming Professor | called to cancel her | | | | [address] | | appointment) | | | | [place] | | | | | | [address] | | | | | | [phone] | | | +--------+ + + + [...] Miscellaneous Notes Telephone Encounter - Ashley Chávez, Swimming Professor - 06/28/2019 2:12 PM PDTPatigutierrez t said that she already got the result for her ECHO, so she decided to cancel her FU with Dr Peterson. I asked patient if she wanted to reschedule for another time, and she said she wants to FU as needed. I went ahead and canceled her appointment. BRODY:NABILAMA. [facility] Plan of [...] [address] | | | | | | [place] [address] | | | | | | [phone] | | | | | | | | +--------+ + + + + | 06/26/ | Office | Cardiology | Dora De La Torre | | | 2019 | Visit | | [address] | | | | | | [address] | | | | | | [place] [address] | | | | | | [phone] | | | | | | | | +--------+ + + + + documented as of this encounter Visit Diagnoses Not on filedocumented in this encounter"
--- OUTSIDE RECORDS SUMMARY | ~2020-05-06 | XMS | Encounter Summary ---
Demographics + + + | Address | [address] | | | [place] [address] | + + + | Home Phone [...] [place] | | | | | [address] | | + + + + + Care Team Providers + +------+ + | Care Sinker Winder Name | Role | Phone | [...] + + | 08/15/ | Documentati | [facility] | Katharine Moncada, | Other (urgent | | 2019 | on | CARDIOLOGY [place] | Technologist | report) | | | | [address] | | | | | | [place] | | | | | | [address] | | | | | | [phone] | | | +--------+ + + + [...] | | | | | [place] [address] | | | | | | [phone] | | | | | | | | +--------+ + + + + | 06/26/ | Office | Cardiology | Dora De La Torre | | | 2020 | Visit | | [address] | | | | | | [address] | | | | | | [place] [address] | | | | | | [phone] | | | | | | | | +--------+ + + + + documented as of this encounter Visit Diagnoses Not on filedocumented in this encounter"
--- OUTSIDE RECORDS SUMMARY | ~2020-05-06 | XMS | Encounter Summary ---
Demographics + + + | Address | [address] | | | [place] [address] | + + + | Home Phone [...] [place] | | | | | [address] | | + + + + + Care Team Providers + +------+ + | Care Studio Artist Name | Role | Phone | [...] | Frandy Simons DO | [address] | | | | | of skin | [address] | [place], | | | | | sensation | [address] | [place] | | | | | Arthrodesis | [place], [place] | [address] | | | | | status Left | [id number] | Phone: | | | | | leg | Phone: | [phone] | | | | | weakness | [phone] | Fax: | | | | | Procedures | Fax: | [phone] | | | | | MRI Lumbar | [phone] | | | | | | Spine [...] [address] | [address] [place], [place] | | | | | [place], [place] | [id number] | | | | | [address] | | | | | | [phone] | | | +--------+ + + + [...] scheduled samson for her MRI here at [facility] on 08/19. SHAYNE ARAGON eleFrandy Diaz DO - 08/12/2014 4:23 PM PDTOK. Please have her undergo MRI of the lumb ar spine without contrast and call when it's done for me to review. Thanks. elephone Protiao irma - Shayne Aragon Cert MA - [...] [address] | | | | | | [place] [address] | | | | | | [phone] | | | | | | | | +--------+ + + + + | 06/26/ | Office | Cardiology | Dora De La Torre | | | 2020 | Visit | | [address] | | | | | | [address] | | | | | | [place] [address] | | | | | | [phone] | | | | | | | [...] the round structure with high T1 and G6blwbpy in the right L3 vertebral | | [...] + | MISCELLANEOUS LAB | | | [phone] | + +---------+ + + | MISCELANIOUS LAB | | | [phone] | + +---------+ + + documented in [...]
--- OUTSIDE RECORDS SUMMARY | ~2020-05-06 | XMS | Encounter Summary ---
Demographics + + + | Address | [address] | | | [place] [address] | + + + | Home Phone [...] [place] | | | | | [address] | | + + + + + Care Team Providers + +------+ + | Care S3B Multi Sensor Operator Name | Role | Phone | [...] | | | | | [address], | address | | | | | [address] [place] | | | | | | [place] [address] | | | | | | [phone] | | | +--------+ + + + [...] stroke work up she had done at [facility] was quite thorough and she did not [...] [address] | | | | | | [place] [address] | | | | | | [phone] | | | | | | | | +--------+ + + + + | 06/26/ | Office | Cardiology | Dora De La Torre | | | 2019 | Visit | | [address] | | | | | | [address] | | | | | | [place] [address] | | | | | | [phone] | | | | | | | | +--------+ + + + + documented as of this encounter Visit Diagnoses Not on filedocumented in this encounter"
--- OUTSIDE RECORDS SUMMARY | ~2020-05-06 | XMS | Encounter Summary ---
Demographics + + + | Address | [address] | | | [place] [address] | + + + | Home Phone [...] [place] | | | | | [address] | | + + + + + Care Team Providers + +------+ + | Care Casual Shoe Inspector Name | Role | Phone [...] + + | 02/05/ | Telephone | [facility] | Ashley Chávez | Other (Patient | | 2020 | | CARDIOLOGY [place] Abad, Customer Associate | ) | | | | [address] | | | | | | [place] | | | | | | [address] | | | | | | [phone] | | | +--------+ + + + [...] t week . elephone Enco Ashley Wong, Customer Associate - 02/06/2020 2:53 PM PDTPatient states that [...] advise. Thank you! (sent to Dora Mendez) JDW:TRANSITIONAL CARE NURSE-AAMA. doc umented in this encounter Plan of [...] [address] | | | | | | [place] [address] | | | | | | [phone] | | | | | | | | +--------+ + + + + | 06/26/ | Office | Cardiology | Dora De La Torre | | | 2019 | Visit | | [address] | | | | | | [address] | | | | | | [facility] [place] [address] | | | | | | [phone] | | | | | | | | +--------+ + + + + documented as of this encounter Visit Diagnoses Not on filedocumented in this encounter
--- OUTSIDE RECORDS SUMMARY | ~2020-05-06 | XMS | Encounter Summary ---
Demographics + + + | Address | [address] | | | [place] [address] | + + + | Home Phone [...] [place] | | | | | [address] | | + + + + + Care Team Providers + +------+ + | Care Cement Finisher Name | Role | Phone | [...] + + | 08/16/ | Documentati | [facility] | Katharine Moncada, | Other (urgent | | 2019 | on | CARDIOLOGY [place] | Technologist | report) | | | | [address] | | | | | | [place] | | | | | | [address] | | | | | | [phone] | | | +--------+ + + + [...] | | | | | [place] [address] | | | | | | [phone] | | | | | | | | +--------+ + + + + | 06/26/ | Office | Cardiology | Dora De La Torre | | | 2020 | Visit | | [address] | | | | | | [address] | | | | | | [place] [address] | | | | | | [phone] | | | | | | | | +--------+ + + + + documented as of this encounter Visit Diagnoses Not on filedocumented in this encounter"
--- OUTSIDE RECORDS SUMMARY | ~2020-05-06 | XMS | Encounter Summary ---
Demographics + + + | Address | [address] | | | [place] [address] | + + + | Home Phone [...] [place] | | | | | [address] | | + + + + + Care Team Providers + +------+ + | Care Traffic Operator Name | Role | Phone | [...] + | 12/03/ | Refill | [facility] | Frandy Teresa, | Medication Refill | | 2014 | | NE[address]UR[address]ERY [address] | DO [address] | | | | | [address] [facility] [address] | [address] [place], [place] | | | | | [place], [place] | [id number] | | | | | [address] | | | | | | [phone] | | | +--------+--------+ + + + [...] office and the number we have in [facility] is not correct. Art Andersen NP Chart notes faxed to [phone] along with medication list. Sent request to update contac t information in [facility] To Kathy @ [facility] Support Team documented in this encounter [...] [address] | | | | | | [place] [address] | | | | | | [phone] | | | | | | | | +--------+ + + + + | 06/26/ | Office | Cardiology | Dora De La Torre | | | 2019 | Visit | | [address] | | | | | | [address] | | | | | | [place] [address] | | | | | | [phone] | | | | | | | | +--------+ + + + + documented as of this encounter Visit Diagnoses Not on filedocumented in this encounter"
--- OUTSIDE RECORDS SUMMARY | ~2020-05-06 | XMS | Encounter Summary ---
Demographics + + + | Address | [address] | | | [place] [address] | + + + | Home Phone [...] [place] | | | | | [address] | | + + + + + Care Team Providers + +------+ + | Care Road Consultant Name | Role | Phone | [...] | 09/10/ | Documentati | [facility] | Katharine Mocnada, | Other (urgent | | 2019 | on | CARDIOLOGY [place] | Technologist | report) | | | | [address] | | | | | | [place] | | | | | | [address] | | | | | | [phone] | | | +--------+ + + + [...] | | | | | [place] [address] | | | | | | [phone] | | | | | | | | +--------+ + + + + | 06/26/ | Office | Cardiology | Dora De La Torre | | | 2020 | Visit | | [address] | | | | | | [address] | | | | | | [place] [address] | | | | | | [phone] | | | | | | | | +--------+ + + + + documented as of this encounter Visit Diagnoses Not on filedocumented in this encounter"
--- OUTSIDE RECORDS SUMMARY | ~2020-05-06 | XMS | Encounter Summary ---
Demographics + + + | Address | [address] | | | [place] [address] | + + + | Home Phone [...] [place], [place] | | | | | [address] | | + + + + + Care Team Providers + +------+ + | Care Reconditioning Associate Name | Role | Phone | + +------+ + PCP | Unavailable | + +------+ + Encounter Details +--------+ + + + + | Date | Type | Department | Care Team | Description | +--------+ + + + + | 06/19/ | Hospital | [facility] | | | | 1991 - | Encounter | MED CTR GENERIC PSY | | | | | | CONV DEPT [address] | | | | 06/24/ | | [place], | | | | 1991 | | [place] [address] | | | | | | [phone] | | | +--------+ + + + [...] | 05/29/ | Procedure | Cardiology | oDra De La Torre | | | 2019 | visit | | [address] | | | | | | [address] | | | | | | [place] [address] | | | | | | [phone] | | | | | | | | +--------+ + + + + | 06/26/ | Office | Cardiology | Dora De La Torre | | | 2019 | Visit | | [address] | | | | | | [address] | | | | | | [place] [address] | | | | | | [phone] | | | | | | | | +--------+ + + + + documented as of this encounter Visit Diagnoses Not on filedocumented in this encounter"
--- OUTSIDE RECORDS SUMMARY | ~2020-05-06 | XMS | Encounter Summary ---
Demographics + + + | Address | [address] | | | [place] [address] | + + + | Home Phone [...] [place] | | | | | [address] | | + + + + + Care Team Providers + +------+ + | Care Manager Reimbursement Name | Role | Phone | + [...] + | 05/02/ | Telephone | [facility] | Frandy Teresa, | Other | | 2013 | | NE[address]UR[address] | DO [address] | | | | | [address] | [address] [place], [place] | | | | | [place], [place] | [id number] | | | | | [address] | | | | | | [phone] | | | +--------+ + + + [...] | | 2019 | visit | | [address] | | | | | | [address] | | | | | | [place] [address] | | | | | | [phone] | | | | | | | | +--------+ + + + + | 06/26/ | Office | Cardiology | Dora De La Torre | | | 2019 | Visit | | [address] | | | | | | [address] | | | | | | [place] [address] | | | | | | [phone] | | | | | | | | +--------+ + + + + documented as of this encounter Visit Diagnoses Not on filedocumented in this encounter"
--- OUTSIDE RECORDS SUMMARY | ~2020-05-06 | XMS | Encounter Summary ---
Demographics + + + | Address | [address] | | | [place] [address] | + + + | Home Phone [...] [place] | | | | | [address] | | + + + + + Care Team Providers + +------+ + | Care Trimmer And Borer Machine Operator Name | Role | Phone [...] + + | 08/20/ | Documentati | [facility] | Katharine Moncada, | Other (urgent | | 2019 | on | CARDIOLOGY [place] | Technologist | report) | | | | [address] | | | | | | [place] | | | | | | [address] | | | | | | [phone] | | | +--------+ + + + [...] | | | | | [place] [address] | | | | | | [phone] | | | | | | | | +--------+ + + + + | 06/26/ | Office | Cardiology | Dora De La Torre | | | 2020 | Visit | | [address] | | | | | | [address] | | | | | | [place] [address] | | | | | | [phone] | | | | | | | | +--------+ + + + + documented as of this encounter Visit Diagnoses Not on filedocumented in this encounter"
--- OUTSIDE RECORDS SUMMARY | ~2020-05-06 | XMS | Encounter Summary ---
Demographics + + + | Address | [address] | | | [place] [address] | + + + | Home Phone [...] [place] | | | | | [address] | | + + + + + Care Team Providers + +------+ + | Care Solar Electric Practitioner Name | Role | Phone | [...] + | 07/19/ | Telephone | [facility] | Frandy Teresa, | Appointment | | 2013 | | [address] | DO [address] | | | | | [address] | [address] [place], [place] | | | | | [place], [place] | [id number] | | | | | [address] | | | | | | [phone] | | | +--------+ + + + [...] Spivey - 07/22/2014 8:09 AM Nakia from [facility] called back this morning to isamar mcarthure that she spoke with the patient again regarding this appointment and the patient would be ok with rescheduling to a time the following week. She just didn't want to make the trip down here right after she got back home to [place]. Janes can be reached at [phone] ectronically signed by Tiffani Humphrey at 07/22/2014 8:11 AM PDTTelephone Encounter - Lashawn Metzger - 07/19/2014 12:56 PM PDTSuarlen from [facility] called to confirm Cindy' s appointment for [...] | | | | | [place] [address] | | | | | | [phone] | | | | | | | | +--------+ + + + + | 06/26/ | Office | Cardiology | Dora De La Torre | | | 2019 | Visit | | [address] | | | | | | [address] | | | | | | [place] [address] | | | | | | [phone] | | | | | | | | +--------+ + + + + documented as of this encounter Visit Diagnoses Not on filedocumented in this encounter"
--- OUTSIDE RECORDS SUMMARY | ~2020-05-06 | XMS | Encounter Summary ---
Demographics + + + | Address | [address] | | | [place] [address] | + + + | Home Phone [...] [place] | | | | | [address] | | + + + + + Care Team Providers + +------+ + | Care Ged Tutor Name | Role | Phone | [...] + + | 08/08/ | Telephone | [facility] | Ashley Chávez | Other (Questions | | 2019 | | CARDIOLOGY [place] Abad, Identification Printing Machine Setter | about coverage. ) | | | | [address] | | | | | | [place] | | | | | | [address] | | | | | | [phone] | | | +--------+ + + + [...] Miscellaneous Notes Telephone Encounter - Ashley Chávez, Identification Printing Machine Setter - 08/08/2019 10:58 AM Seferino foster called and wanted to know if her monitor needed to be AUTHORIZED. I asked Danelle and she said that because she had medicare part A and B, it does not need kayode or auth. I told this information to the patient, patient stated understanding. JKASISE:PIPING BLOCKER-AAMA. [facility] umphilipp in this encounter Plan of Treatment [...] [address] | | | | | | [place] [address] | | | | | | [phone] | | | | | | | | +--------+ + + + + | 06/26/ | Office | Cardiology | Dora De La Torre | | | 2019 | Visit | | [address] | | | | | | [address] | | | | | | [place] [address] | | | | | | [phone] | | | | | | | | +--------+ + + + + documented as of this encounter Visit Diagnoses Not on filedocumented in this encounter"
--- OUTSIDE RECORDS SUMMARY | ~2020-05-06 | XMS | Encounter Summary ---
Demographics + + + | Address | [address] | | | [place] [address] | + + + | Home Phone [...] [place], [place] | | | | | [address] | | + + + + + Care Team Providers + +------+ + | Care Receiving Specialist Name | Role | Phone | + +------+ + PCP | Unavailable | + +------+ + Encounter Details +--------+ + + + + | Date | Type | Department | Care Team | Description | +--------+ + + + + | 05/23/ | Hospital | [facility] | [place], | | | 2011 | Encounter | MED CTR XRAY [address] | MD [address] | | | | | [place] | [place] | | | | | [place] [address] | [address] | | | | | [phone] | | | +--------+ + + + [...] [address] | | | | | | [place] [address] | | | | | | [phone] | | | | | | | | +--------+ + + + + | 06/26/ | Office | Cardiology | Dora De La Torre | | | 2019 | Visit | | [address] | | | | | | [address] | | | | | | [place] [address] | | | | | | [phone] | | | | | | | [...] [facility] Department | [place] | | [address] [place] [address] | [facility] | | LUMBAR SPINE MR [...] Transcribed Date/Time: | | | 05/23/2012 16:55 Assistant Track Coach: <Electronically Signed | | | by Adriano Anne MD> 05/23/12 6795 | | + + + + + | Procedure Note | + + | Juan, Rad Conversion - 11/30/2013 5:47 PM [facility] | | Diagnostic Imaging Department [address] [facility] | | LUMBAR SPINE MR WITHOUT [...] 16:37 | |Transcribed Date/Time: 05/23/2012 16:55 | |Assistant Track Coach: | |<Electronically Signed by Adriano Anne MD> 05/23/12 1725 | + + + +---------+ + + | Performing | Address | City/State/Zipcode | Phone Number | | Organization | | | | + +---------+ + + | [facility] | | | | | [facility] | | | | + +---------+ + + documented in this encounter Visit Diagnoses Not on filedocumented in this encounter"
--- OUTSIDE RECORDS SUMMARY | ~2020-05-06 | XMS | Encounter Summary ---
Demographics + + + | Address | [address] | | | [place] [address] | + + + | Home Phone [...] [place] | | | | | [address] | | + + + + + Care Team Providers + +------+ + | Care Etch Operator Semiconductor Wafers Name | Role | Phone | + [...] + + | 08/15/ | Documentati | [facility] | Katharine Moncada, | Other (urgent | | 2019 | on | CARDIOLOGY [place] | Technologist | report) | | | | [address] | | | | | | [place] | | | | | | [address] | | | | | | [phone] | | | +--------+ + + + [...] | | | | | [place] [address] | | | | | | [phone] | | | | | | | | +--------+ + + + + | 06/26/ | Office | Cardiology | Dora De La Torre | | | 2020 | Visit | | [address] | | | | | | [address] | | | | | | [place] [address] | | | | | | [phone] | | | | | | | | +--------+ + + + + documented as of this encounter Visit Diagnoses Not on filedocumented in this encounter"
--- OUTSIDE RECORDS SUMMARY | ~2020-05-06 | XMS | Encounter Summary ---
Demographics + + + | Address | [address] | | | [place] [address] | + + + | Home Phone [...] [place], [place] | | | | | [address] | | + + + + + Care Team Providers + +------+ + | Care Business Planning Analyst Name | Role | Phone | + +------+ + PCP | Unavailable | + +------+ + Encounter Details +--------+ + + + + | Date | Type | Department | Care Team | Description | +--------+ + + + + | 07/17/ | Hospital | [facility] | | | | 1997 - | Encounter | MED CTR GENERIC PSY | | | | | | CONV DEPT [address] | | | | 07/25/ | | [place], | | | | 1997 | | [place] [address] | | | | | | [phone] | | | +--------+ + + + [...] [address] | | | | | | [place] [address] | | | | | | [phone] | | | | | | | | +--------+ + + + + | 06/26/ | Office | Cardiology | Dora De La Torre | | | 2019 | Visit | | [address] | | | | | | [address] | | | | | | [place] [address] | | | | | | [phone] | | | | | | | | +--------+ + + + + documented as of this encounter Visit Diagnoses Not on filedocumented in this encounter"
--- OUTSIDE RECORDS SUMMARY | ~2020-05-06 | XMS | Encounter Summary ---
Demographics + + + | Address | [address] | | | [place] [address] | + + + | Home Phone [...] [place] | | | | | [address] | | + + + + + Care Team Providers + +------+ + | Care Sales Research Analyst Name | Role | Phone [...] + | 05/13/ | Telephone | [facility] | Frandy Teresa, | Other | | 2013 | | NEUROSURGERY [address] | DO [address] | | | | | [address] | [address] [place], [place] | | | | | [place], [place] | [id number] | | | | | [address] | | | | | | [phone] | | | +--------+ + + + [...] [address]U | | | | | | [place] [address] | | | | | | [phone] | | | | | | | | +--------+ + + + + | 06/26/ | Office | Cardiology | Dora De La Torre | | | 2019 | Visit | | [address] | | | | | | [address] | | | | | | [place] [address] | | | | | | [phone] | | | | | | | | +--------+ + + + + documented as of this encounter Visit Diagnoses Not on filedocumented in this encounter"
--- OUTSIDE RECORDS SUMMARY | ~2020-05-06 | XMS | Encounter Summary ---
Demographics + + + | Address | [address] | | | [place] [address] | + + + | Home Phone [...] [place] | | | | | [address] | | + + + + + [...] updated | | | | | [address], | address | | | | | [address] [place] | | | | | | [place] [address] | | | | | | [phone] | | | +--------+ + + + [...] | | | | | [place] [address] | | | | | | [phone] | | | | | | | | +--------+ + + + + | 06/26/ | Office | Cardiology | Dora De La Torre | | | 2019 | Visit | | [address] | | | | | | [address] | | | | | | [place] [address] | | | | | | [phone] | | | | | | | | +--------+ + + + + documented as of this encounter Visit Diagnoses Not on filedocumented in this encounter"
--- OUTSIDE RECORDS SUMMARY | ~2020-05-06 | XMS | Encounter Summary ---
Demographics + + + | Address | [address] | | | [place] [address] | + + + | Home Phone [...] [place] | | | | | [address] | | + + + + + Care Team Providers + +------+ + | Care Bakery Manager Name | Role | Phone | [...] + | 08/09/ | Documentati | [facility] | Katharine Moncada, | Other (end of study) | | 2019 | on | CARDIOLOGY [place] | Technologist | | | | | [address] | | | | | | [place], [place] | | | | | | [address] | | | | | | [phone] | | | +--------+ + + + [...] Technologist - 08/09/2019 11:59 PM PDT Cardiac Story Editor Date of Event Monitor: 08/09/19 Referring Physician: [...] [address] | | | | | | [place] [address] | | | | | | [phone] | | | | | | | | +--------+ + + + + | 06/26/ | Office | Cardiology | Dora De La Torre | | | 2020 | Visit | | [address] | | | | | | [address] | | | | | | [place] [address] | | | | | | [phone] | | | | | | | | +--------+ + + + + documented as of this encounter Visit Diagnoses Not on filedocumented in this encounter"
--- OUTSIDE RECORDS SUMMARY | ~2020-05-06 | XMS | Encounter Summary ---
Demographics + + + | Address | [address] | | | [place] [address] | + + + | Home Phone [...] [place] | | | | | [address] | | + + + + + Care Team Providers + +------+ + | Care Field Supervisor Seed Production Name | Role | Phone | [...] | SLEEP DISORDER 401 | [address] | | | | | [address] [place] | [place] | | | | | [place] [address] | [address] | | | | | [phone] | | | +--------+ + + + [...] PDTPat was last seen in our [facility] on 04/30/2015. He did not cancel or [...] PA-C eleph one Encounter - Gail Cadet, Service Desk Technician - 07/15/2016 8:37 AM PDTCalled to resched ule patient's no show appointment unable to contact all numbers are disconnected. Electronic ally signed by Gail Cadet Service Desk Technician at 07/15/2016 8:37 AM PDTdocumented in this [...] | | | | | | [place] [address] | | | | | | [phone] | | | | | | | | +--------+ + + + + | 06/26/ | Office | Cardiology | Dora De La Torre | | | 2019 | Visit | | [address] | | | | | | [address] | | | | | | [place] [address] | | | | | | [phone] | | | | | | | | +--------+ + + + + documented as of this encounter Visit Diagnoses Not on filedocumented in this encounter"
--- OUTSIDE RECORDS SUMMARY | ~2020-05-06 | XMS | Encounter Summary ---
Demographics + + + | Address | [address] | | | [place] [address] | + + + | Home Phone [...] [place] | | | | | [address] | | + + + + + [...] + + | 03/30/ | Hospital | [facility] [place] [facility] | Tyrese Neely MD | | | 2012 | Encounter | MED CTR MP INTRA OP | [address], [place] | | | | | [address] | [address] [place], [place] | | | | | [place], [place] | [address] | | | | | [address] | | | | | | [phone] | | | +--------+ + + + [...] + + + +---------+ + + | [place]-3 Fatty | Take 1,000 mg by | [...] Neely MD - 03/30/2013 12:10 [place] [address] Patient Name: CINDY ARNDT Provider: Tyrese Neely MD Unit #: [id number] Location: [facility] : 1955 Patient Name: Cindy Arndt Gender: F Procedure Date: 03/30/2013 12:10 PM Date of : 1955 Age: 57 Admit Type: Outpatient Room: Endo Room 1 Note Status: Finalized Attending MD: Tyrese Neely MD Procedure: Upper GI endoscopy Indications: Epigastric abdominal pain Providers: Tyrese Neely MD, Vanesa Anne RN, Yesenia Downing, Cnc Technician, Guillermo Ortiz MD (Anesthesia Staff) Referring MD: [...] physician, the nurse, the anesthesiologist and the highway technician. The procedure was verified in the [...] [address] | | | | | | [place] [address] | | | | | | [phone] | | | | | | | | +--------+ + + + + | 06/26/ | Office | Cardiology | Isacc De La Torre | | | 2019 | Visit | | Vanessa, DIRECTOR OF VIDEO ANALYTICS [address] | | | | | | [address] | | | | | | [place] [address] | | | | | | [phone] | | | | | | | [...] + | [facility] | [address] | [place], [place] | [phone] | | [facility] | | [address] | | | - LABORATORY | | | | + + + + + | [facility] | [address] | [place], [place] | | | [facility] | | [address] | | | - LABORATORY [...] + | [facility] | [address] | [place] | [phone] | | [facility] | | [address] | | | - LABORATORY | | | | + + + + + | [facility] | [address] | [place], [place] | | | [facility] | | [id number] [place] [address] | | | - LABORATORY | | | | + + + + + documented in this encounter Visit Diagnoses Not on filedocumented in this encounter"
--- OUTSIDE RECORDS SUMMARY | ~2020-05-06 | XMS | Encounter Summary ---
Demographics + + + | Address | [address] | | | [place] [address] | + + + | Home Phone [...] [place], [place] | | | | | [address] | | + + + + + Care Team Providers + +------+ + | Care Strategic Marketing Associate Name | Role | Phone | + +------+ + PCP | Unavailable | + +------+ + Encounter Details +--------+ + + + + | Date | Type | Department | Care Team | Description | +--------+ + + + + | 02/02/ | Hospital | [facility] | Serafin Bautista | | | 2011 | Encounter | MED CTR XRAY [address] | T, [address] | | | | | [place] | [place] | | | | | [place] [address] | [address] | | | | | [phone] | | | +--------+ + + + [...] [address] | | | | | | [place] [address] | | | | | | [phone] | | | | | | | | +--------+ + + + + | 06/26/ | Office | Cardiology | Dora De La Torre | | | 2019 | Visit | | [address] | | | | | | [address] | | | | | | [place] [address] | | | | | | [phone] | | | | | | | [...] Performed At | + + + | [facility] | [place] | | [address] [facility] | [place] [employer] | | PROCEDURE: EPIDURAL STEROID | [...] Transcribed Date/Time: | | | 02/03/2012 18:45 Forest Fire Warden: <Electronically Signed | | | by Serafni Bautista MD> 02/14/12 0916 | | + + + + + | Procedure Note | + + | Juan, Rad Conversion - 11/30/2013 5:06 PM [facility] | | Diagnostic Imaging Department | | [address] [facility] | | | | | [...] | Transcribed Date/Time: 02/03/2012 18:45 | | Forest Fire Warden: | | <Electronically Signed by Serafin Bautista [...]
--- OUTSIDE RECORDS SUMMARY | ~2020-05-06 | XMS | Encounter Summary ---
Demographics + + + | Address | [address] | | | [place] [address] | + + + | Home Phone [...] [place], [place] | | | | | [address] | | + + + + + Care Team Providers + +------+ + | Care Diesel Pile Hammer Operator Name | Role | Phone | + +------+ + PCP | Unavailable | + +------+ + Encounter Details +--------+ + + + + | Date | Type | Department | Care Team | Description | +--------+ + + + + | 04/16/ | [facility] | [facility] | Deon Gonzales | | | 2004 | Encounter | MED CTR SLEEP | MD Laureano [address] | | | | | [place] [address] | [facility] | | | | | [place], [place] | [place] [address] | | | | | [address] | [phone] | | | | | [phone] | | | +--------+ + + + [...] | | | | | [place] [address] | | | | | | [phone] | | | | | | | | +--------+ + + + + | 06/26/ | Office | Cardiology | Dora De La Torre | | | 2019 | Visit | | [address] | | | | | | [address] | | | | | | [place] [address] | | | | | | [phone] | | | | | | | | +--------+ + + + + documented as of this encounter Visit Diagnoses Not on filedocumented in this encounter"
--- OUTSIDE RECORDS SUMMARY | ~2020-05-06 | XMS | Encounter Summary ---
Demographics + + + | Address | [address] | | | [place] [address] | + + + | Home Phone [...] | [facility] | | | and [place] | + + + | Address | Unknown | + + + | Phone | Unavailable | + + + Support + + + + + | Name | Relationship | Address | Phone | + + + + + | Araceli Sibley | ECON | [place] | | | | | [address] | | + + + + + Care Team Providers + +------+ + | Care Franchise Development Manager Name | Role | Phone [...] | | | | | | | [address] | | | | | | | Phone: | | | | | | | [phone] | | | | | | | Fax: | | | | | | | [phone] | | +--------+--------+ + + + + Encounter Details +--------+---------+ + + + | Date | Type | Department | Care Team | Description | +--------+---------+ + + + | 02/27/ | [facility] | [facility] | Baudilio Newman | Neuropathy (Primary | | 2015 | Visit | NEUROLOGY LAURIE | MD Pollo Need updated | Dx); Sleep apnea; | | | | [address], | address | Stroke (HCC); | | | | [address] [place] | | Thyroid disease | | | | [place] [address] | | | | | | [phone] | | | +--------+---------+ + + + [...] supply of blood, brain tissue quickly dies. 7077-5177 [employer]. [address] [place] [address]. All righ ts reserved. This information is not intended as a substitute for professional medical care. Always follow your healthcare professional's instructions. documented in this encounter Progress Notes Baudilio Newman MD - 02/27/2015 10:31 AM PDTFormatting of this note might be differen t from the original. Baudilio Newman MD [address] [place] [address], [address] [place] [address] Neurology Outpatient New Patient Note Referring Provider: [...] history. Notes from her recent hospitalization at [facility] were reviewed in detail. Ms. Arndt started feeling off in the evening of 02/01. She felt dizzy and laid down to slee p. Upon waking, she felt her right side was numb. She tried to get up to go to the bathroom and realized she was weak as well on the right. She was taken to [facility] where she was diagnosed with [...] systol ically. She was reevaluated in the [facility] ED for one such event [...] hospitalization . This specimen was characterized at [facility], but the report is not currently available for [facility]. Unfortunately, Ms. Arndt notes that her [...] any overt weakness. She has been ta alexsi Aggrenox as an antiplatelet agent, but this [...] tablet Take 15 mg by mouth nightly. [place]-3 Fatty Acids (FISH OIL CONCENTRATE) 1000 [...] BMI 46.04 kg /m2 Neck Circumference: 14" [place] Sleepiness Scale: 2 General: well developed and [...] Romberg test negative Radiographic Review: CTA from [facility] reviewed on i[facility]ITE. No significant stenoses seen [...] No results found for this basename: hba1c, als9cpy, ldl, ldldirect, ldlext, dldlex Lab Results Component [...] [address] | | | | | | [place] [address] | | | | | | [phone] | | | | | | | | +--------+ + + + + | 06/26/ | Office | Cardiology | Dora De La Torre | | | 2020 | Visit | | [address] | | | | | | [address] | | | | | | [place] [address] | | | | | | [phone] | | | | | | | [...]
--- OUTSIDE RECORDS SUMMARY | ~2020-05-06 | XMS | Encounter Summary ---
Demographics + + + | Address | [address] | | | [place] [address] | + + + | Home Phone [...] [place] | | | | | [address] | | + + + + + Care Team Providers + +------+ + | Care Pneumatic Tool Repairer Name | Role | Phone | [...] | | | | | | [place] [address] | | | | | | [phone] | | | | | | | [...] in | | | | | | [place] with a | | | | | [...] | | | | | | [facility] | | | | | | Laboratory, [place], | | | | | | [place], delivered | | | | | | [...] by | | | | | | [id number]-Nef-A: | | | | | | Increased [...] istryMHC-1: | | | | | | [id number] stain | | | | | | [...] | + + + + + | [facility] | [address] | [place] [address] | | | PATHOLOGY | [place] | | | + + + + + documented in this encounter Visit Diagnoses Not on filedocumented in this encounter
--- OUTSIDE RECORDS SUMMARY | ~2020-05-06 | XMS | Encounter Summary ---
Demographics + + + | Address | [address] | | | [place] [address] | + + + | Home Phone [...] [place] | | | | | [address] | | + + + + + Care Team Providers + +------+ + | Care Carton Machine Operator Name | Role | Phone [...] [address] | [address] [place], [place] | (Primary Dx) | | | | [place] | [address] | | | | | [address] | | | | | | [phone] | | | +--------+ + + + [...] [address] | | | | | | [place] [address] | | | | | | [phone] | | | | | | | | +--------+ + + + + | 06/26/ | Office | Cardiology | Dora De La Torre | | | 2019 | Visit | | [address] | | | | | | [address] | | | | | | [place] [address] | | | | | | [phone] | | | | | | | [...] + | MISCELLANEOUS LAB | | | [phone] | + +---------+ + + | MISCELANIOUS LAB | | | [phone] | + +---------+ + + documented in this encounter Visit Diagnoses + + | Diagnosis | + + | Status post lumbar spinal fusion - Primary Arthrodesis status | + + documented in this encounter"
--- OUTSIDE RECORDS SUMMARY | ~2020-05-06 | XMS | Encounter Summary ---
Demographics + + + | Address | [address] | | | [place] [address] | + + + | Home Phone [...] [place], [place] | | | | | [address] | | + + + + + [...] | 02/22/ | Hospital | [facility] | | | | 1996 - | Encounter | MED CTR GENERIC PSY | | | | | | CONV DEPT [address] | | | | 02/26/ | | [place], | | | | 1996 | | [place] [address] | | | | | | [phone] | | | +--------+ + + + [...] [address] | | | | | | [place] [address] | | | | | | [phone] | | | | | | | | +--------+ + + + + | 06/26/ | Office | Cardiology | Dora De La Torre | | | 2019 | Visit | | [address] | | | | | | [address] | | | | | | [place] [address] | | | | | | [phone] | | | | | | | | +--------+ + + + + documented as of this encounter Visit Diagnoses Not on filedocumented in this encounter"
--- OUTSIDE RECORDS SUMMARY | ~2020-05-06 | XMS | Encounter Summary ---
Demographics + + + | Address | [address] [facility] | | | [place] [address] | + + + | Home Phone [...] [place] | | | | | [address] | | + + + + + Care Team Providers + +------+ + | Care Optician Apprentice Name | Role | Phone | [...] | | | | | | [place], | | | | | | [place] [address] | | | | | | [phone] | | | +--------+ + + + [...] | | + +---------+ + + | [facility] DEPARTMENT OF | | | | | RADIOLOGY | | | | + +---------+ + + documented in this encounter Visit Diagnoses Not on filedocumented in this encounter"
--- OUTSIDE RECORDS SUMMARY | ~2020-05-06 | XMS | Encounter Summary ---
Demographics + + + | Address | [address] | | | [place] [address] | + + + | Home Phone [...] [place] | | | | | [address] | | + + + + + Care Team Providers + +------+ + | Care Monitor Tech Name | Role | Phone | [...] 07/06/ | Emergency | [facility] | Yunior Sherman, | Chest pain, | | 2014 | | MED CTR EMERGENCY | MD [address] | unspecified chest | | | | CENTER [address] | [place], [place] | pain type (Primary | | | | [place], [place] | [address] | Dx) | | | | [address] | | | | | | [phone] | | | +--------+ + + + [...] sent through Care Everywhere.CHEST PAIN, NON CARDIAC (LATVIAN)documented in this encounter Medications at Time of [...] 0 | | | | (VITAMIN D-3) [address] | mouth Once a week. | | [...] | | | | | ([facility]) | | | | | [...] + + + +---------+ + + | [place]-3 Fatty | Take 1,000 mg by [...] Surgeon: Frandy castellanos DO; Location: [facility] MAIN OR Cardiac catherization CURRENT MEDICATIONS [...] mg by mouth Daily. CHOLECALCIFEROL (VITAMIN D-3) 63860 UNITS CAPS Take 50,000 Units by mouth [...] pain. She was recently discharged from a [facility] facility. She's had more than 24 [...] Value Ref Range INTERPRETATION TEXT Not Confirmed Ynuior Sherman MD 07/06/15 1703 document ed in [...] CANTU | | | | | | [place] [address] | | | | | | [phone] | | | | | | | | +--------+ + + + + | 06/26/ | Office | Cardiology | Dora De La Torre | | | 2019 | Visit | | [address] | | | | | | [address] | | | | | | [place] [address] | | | | | | [phone] | | | | | | | [...] [address] | [place] | [phone] | | [facility] | | [address] | | | - LABORATORY | | [...] + | [facility] | [address] | [place] | [phone] | | [facility] | | [address] | | | - LABORATORY | | [...] | | | | | | [employer] | | | | | [...] [address] | [place] | [phone] | | [facility] | | [address] | | | [...] | mL/min/1.73m2 | DORA | | | MALTESE | RATE,ESTIMATED | | MEDICAL | | | | mL/min/1.46i5Xkhz than | | CENTER - | | [...] [address] | [place] | [phone] | | [facility] | | [address] | | | - LABORATORY | | [...] + | [facility] | [address] | [place] | [phone] | | [facility] | | [address] | | | - LABORATORY | | [...] | | | | MD MANSI, LACEY ([id number]) | | | | | | on [...]
--- OUTSIDE RECORDS SUMMARY | ~2020-05-06 | XMS | Encounter Summary ---
Demographics + + + | Address | [address] | | | [place] [address] | + + + | Home Phone [...] [place], [place] | | | | | [address] | | + + + + + Care Team Providers + +------+ + | Care Policy Specialist Name | Role | Phone | + +------+ + PCP | Unavailable | + +------+ + Encounter Details +--------+ + + + + | Date | Type | Department | Care Team | Description | +--------+ + + + + | 06/30/ | Hospital | [facility] | | | | 2000 | Encounter | MED CTR EMERGENCY | | | | | | [address] | | | | | | [place] | | | | | | [address] | | | | | | [phone] | | | +--------+ + + + [...] | | | | | [place] [address] | | | | | | [phone] | | | | | | | | +--------+ + + + + | 06/26/ | Office | Cardiology | Dora De La Torre | | | 2020 | Visit | | [address] | | | | | | [address] | | | | | | [place] [address] | | | | | | [phone] | | | | | | | | +--------+ + + + + documented as of this encounter Visit Diagnoses Not on filedocumented in this encounter"
--- OUTSIDE RECORDS SUMMARY | ~2020-05-06 | XMS | Encounter Summary ---
Demographics + + + | Address | [address] | | | [place] [address] | + + + | Home Phone [...] [place] | | | | | [address] | | + + + + + Care Team Providers + +------+ + | Care Supervisor Core Shop Name | Role | Phone | [...] | | | spondylolist | | [address] | | | | | hesis | | [place], | | | | | Spinal | | [place] [address] | | | | | stenosis, | | Phone: | | | | | lumbar | | [phone] | | | | | region, | | Fax: | | | | | without | | [phone] | | | | | neurogenic | [...] + | 07/02/ | Hospital | [facility] | Frandy Teresa, | Spinal stenosis, | | 2013 | Encounter | [facility] [address] | DO [address] | lumbar region, | | | | [place] | [address] [place], [place] | without neurogenic | | | | [place] [address] | [id number] | claudication | | | | [phone] | | (Primary Dx) | +--------+ + [...] + + + +---------+ + + | Parsons-3 Fatty | Take 1,000 mg by | [...] [address] | | | | | | [place] [address] | | | | | | [phone] | | | | | | | | +--------+ + + + + | 06/26/ | Office | Cardiology | Britt Dora | | | 2019 | Visit | | [address] | | | | | | [address] | | | | | | [place] [address] | | | | | | [phone] | | | | | | | [...]
--- OUTSIDE RECORDS SUMMARY | ~2020-05-06 | XMS | Encounter Summary ---
Demographics + + + | Address | [address] | | | [place] [address] | + + + | Home Phone [...] [place], [place] | | | | | [address] | | + + + + + Care Team Providers + +------+ + | Care Lead Section Supervisor Name | Role | Phone | + +------+ + PCP | Unavailable | + +------+ + Encounter Details +--------+ + + + + | Date | Type | Department | Care Team | Description | +--------+ + + + + | 09/23/ | Hospital | [facility] | | | | 1994 | Encounter | MED CTR LABORATORY | | | | | | [address] | | | | | | [place] | | | | | | [address] | | | | | | [phone] | | | +--------+ + + + [...] | | | | | [place] [address] | | | | | | [phone] | | | | | | | | +--------+ + + + + | 06/26/ | Office | Cardiology | Dora De La Torre | | | 2020 | Visit | | [address] | | | | | | [address] | | | | | | [place] [address] | | | | | | [phone] | | | | | | | | +--------+ + + + + documented as of this encounter Visit Diagnoses Not on filedocumented in this encounter"
--- OUTSIDE RECORDS SUMMARY | ~2020-05-06 | XMS | Encounter Summary ---
Demographics + + + | Address | [address] | | | [place] [address] | + + + | Home Phone [...] [place] | | | | | [address] | | + + + + + Care Team Providers + +------+ + | Care Apartment Assistant Manager Name | Role | Phone [...] + + | 04/30/ | Office | [facility] | Russell Alfaro PA | ROGERS on CPAP (Primary | | 2015 | Visit | SLEEP DISORDER 401 | [address] | Dx) | | | | [address] | [place] | | | | | [place] [address] | [address] | | | | | [phone] | | | +--------+---------+ + + + [...] encounter Progress Notes Gail Cadet, Master of ROLI - 04/30/2015 11:12 AM PDTFormatting of this note might be khoi rivas from the original. 04/30/15 1100 [place] Depression Inventory-II Depression Score 9 - Minimal depression Insomnia Severity Index Insomnia Severity Index 13 Pella Sleepiness Scale Sitting and reading 3 Watching [...] appro priate paperwork. Thirty minutes were spent [id number], with the majority of time spent i [...] [address]U | | | | | | [place] [address] | | | | | | [phone] | | | | | | | | +--------+ + + + + | 06/26/ | Office | Cardiology | Dora De La Torre | | | 2020 | Visit | | [address] | | | | | | [address] | | | | | | [facility] [place] [address] | | | | | | [phone] | | | | | | | | +--------+ + + + + documented as of this encounter Visit Diagnoses + + | Diagnosis | + + | ROGERS on CPAP - Primary Obstructive sleep apnea (adult) (pediatric) | + + documented in this encounter"
--- OUTSIDE RECORDS SUMMARY | ~2020-05-06 | XMS | Encounter Summary ---
Demographics + + + | Address | [address] | | | [place] [address] | + + + | Home Phone [...] [place] | | | | | [address] | | + + + + + Care Team Providers + +------+ + | Care Flat Clothier Name | Role | Phone | + [...] Clinic | | | | | | [facility], [address] | | | | | | [place], [place] | | | | | | [address] | | | | | | [phone] | | | +--------+ + + + [...] as of this encounter Progress Notes Interface, Supervisor Backfilling In - 12/11/2006 5:03 AM [facility] [...]
--- OUTSIDE RECORDS SUMMARY | ~2020-05-06 | XMS | Encounter Summary ---
Demographics + + + | Address | [address] | | | [place] [address] | + + + | Home Phone [...] [place] | | | | | [address] | | + + + + + Care Team Providers + +------+ + | Care Auto Collision Repair Instructor Name | Role | Phone | [...] [address] | [address] [place], [place] | | | | | [place], [place] | [address] | | | | | [address] | | | | | | [phone] | | | +--------+ + + + [...] [address]U | | | | | | [place] [address] | | | | | | [phone] | | | | | | | | +--------+ + + + + | 06/26/ | Office | Cardiology | Dora De La Torre | | | 2020 | Visit | | [address] | | | | | | [address] | | | | | | [place] [address] | | | | | | [phone] | | | | | | | [...] + | MISCELLANEOUS LAB | | | [phone] | + +---------+ + + | MISCELANIOUS LAB | | | [phone] | + +---------+ + + documented in this encounter Visit Diagnoses + + | Diagnosis | + + | Back pain - Primary Backache, unspecified | + + documented in this encounter"
--- OUTSIDE RECORDS SUMMARY | ~2020-05-06 | XMS | Encounter Summary ---
Demographics + + + | Address | [address] | | | [place] [address] | + + + | Home Phone [...] [place] | | | | | [address] | | + + + + + Care Team Providers + +------+ + | Care Fire Prevention Forester Name | Role | Phone | [...] | | | spondylolist | | [address] | | | | | hesis | | [place], | | | | | Spinal | | [place] [address] | | | | | stenosis, | | Phone: | | | | | lumbar | | [phone] | | | | | region, | | Fax: | | | | | without | | [phone] | | | | | neurogenic | [...] | | | | | [address] | [address] [place] | | | | | [place] | [address] [phone] | | | | | [address] | | | | | | [phone] | | | +--------+ + + + [...] mask AW. DL times one with [facility] easy view | | | 2 | Intubation | | | | 2 | | | | | 6 | | | +----+---+ + + | | 1 | AN Bite | | | | 2 | Block | | | | 2 | | | | | 7 | | | +----+---+ + + | | 1 | [place] | | | | 2 | 43-degrees | | | | 3 | | | | | 1 | | | +----+---+ + + | | 1 | [place] off | | | | 4 | [...] EVALUATION Cindy Arndt 58 y.o. female 1955 [id number] Procedure: Procedure(s):MIS L5-S1 TRANSFORAMINAL LUMBAR INTERBODY FUSION [...] by Zen Mccord MD 07/02/2014 14:55 [facility] nesthesia Preproc edure Evaluation - Zen Mccodr MD - 07/02/2014 8:36 AM PDTFormatting of this note m ight be different from the original. ANESTHESIA PREANESTHESIA EVALUATION Cindy Arndt 58 y.o. female 1955 [id number] Scheduled procedure LAMINECTOMY PLIF/TLIF INSTRUMENTATION [184] - MIS L5-S1 TRANSFORAMINAL LUMBAR INTERBODY FUSION Medical history, anesthesia, medications, allergy histories reviewed. ECG reviewed. Labs reviewed. ROS / Med History Ane (+) PONV. NPO status verified. CV (+) hypertension.(-) CAD, past NH, CHF, congenital heart disease, pulmonary hypertension, p [...] CANTU | | | | | | [place] [address] | | | | | | [phone] | | | | | | | | +--------+ + + + + | 06/26/ | Office | Cardiology | Dora De La Torre | | | 2019 | Visit | | [address] | | | | | | [address] | | | | | | [place] [address] | | | | | | [phone] | | | | | | | [...]
--- OUTSIDE RECORDS SUMMARY | ~2020-05-06 | XMS | Encounter Summary ---
Demographics + + + | Address | [address] | | | [place] [address] | + + + | Home Phone [...] [place] | | | | | [address] | | + + + + + Care Team Providers + +------+ + | Care Plumbing Installer Name | Role | Phone | + +------+ + | Basim Bolanos MD | PCP | | + +------+ + Encounter Details +--------+ + + + + | Date | Type | Department | Care Team | Description | +--------+ + + + + | 03/01/ | Abstract | [facility] [place] | [facility], | | | 2012 | | GASTROENTEROLOGY | FORTUNATO Thomas [address] | | | | | [address] | [address] | | | | | [address] [place], [place] | [place], [place] | | | | | [address] | [address] | | | | | [phone] | | | +--------+ + + + [...] | | | | | [place] [address] | | | | | | [phone] | | | | | | | | +--------+ + + + + | 06/26/ | Office | Cardiology | Dora De La Torre | | | 2019 | Visit | | [address] | | | | | | [address] | | | | | | [place] [address] | | | | | | [phone] | | | | | | | | +--------+ + + + + documented as of this encounter Visit Diagnoses Not on filedocumented in this encounter"
--- OUTSIDE RECORDS SUMMARY | ~2020-05-06 | XMS | Encounter Summary ---
Demographics + + + | Address | [address] | | | [place] [address] | + + + | Home Phone [...] [place] | | | | | [address] | | + + + + + Care Team Providers + +------+ + | Care Sales And Service Technician Name | Role | Phone [...] + + | 07/24/ | Telephone | [facility] | Ashley Chávez | Other (Patient is | | 2018 | | CARDIOLOGY [place], Spiritual Counselor | worried about paying | | | | [address] | | for monitor. ) | | | | [place] | | | | | | [address] | | | | | | [phone] | | | +--------+ + + + [...] Miscellaneous Notes Telephone Encounter - Ashley Chávez, Spiritual Counselor - 07/24/2019 11:13 AM Seferino t [...] gals to see what can be done. JDW:HEALTHCARE MANAGEMENT-AAMA. [facility] umented in this [...] [address] | | | | | | [place] [address] | | | | | | [phone] | | | | | | | | +--------+ + + + + | 06/26/ | Office | Cardiology | Dora De La Torre | | | 2019 | Visit | | [address] | | | | | | [address] | | | | | | [place] [address] | | | | | | [phone] | | | | | | | | +--------+ + + + + documented as of this encounter Visit Diagnoses Not on filedocumented in this encounter"
--- OUTSIDE RECORDS SUMMARY | ~2020-05-06 | XMS | Encounter Summary ---
Demographics + + + | Address | [address] | | | [place] [address] | + + + | Home Phone [...] [place] | | | | | [address] | | + + + + + Care Team Providers + +------+ + | Care Telecommunications Network Engineer Name | Role | Phone | + +------+ + | Natalee Andersen NP | PCP | | + +------+ + Encounter Details +--------+---------+ + + + | Date | Type | Department | Care Team | Description | +--------+---------+ + + + | 06/25/ | Surgery | [facility] | Frandy Teresa, | Canceled | | 2013 | | MED CTR OR INTRA OP | DO [address] | PROCEDURE NOT | | | | [address] | [address] [place], [place] | PERFORMED | | | | [place], [place] | [address] | | | | | [address] | | | | | | [phone] | | | +--------+---------+ + + + [...] + + +---------+ + + | [place]-3 Fatty | Take 1,000 mg by | [...] this en counter H&P Notes ONBRUCE ABREU [facility] - 06/21/2014 12:00 AM PDT [...] MD at 06/26/2014 8:05 AM PDTONBRUCE ABREU [facility] - 06/26 12:00 AM PDT NBRUCE ZAMORA N [facility] - 06/26/2014 12:00 AM PDT NBASE SCAN [facility] - 06/12/2014 12:00 AM PDTElectronically signed by Mariah Schulte at 06/12 7:30 AM PDTONSAN [facility] SCAN [facility] - 06/11/2014 12:00 AM PDT documented in this encounter Miscellaneous Notes Miscellaneous - ONBASE SCAN [facility] - 06/26/2014 12:00 AM PDT [...] stenosis, lumbar region, without neurogenic claudication ). Day Worker visit is in response to an electronic spiritual care consult request. Patient wa s resting comfortably in bed; she was attended by her mom and dad - both sate nearby and see med very attentive and supportive. Cindy is Buddhism, attends [employer], and is strong in her rangel. She is excited about taking care of her back problem and fe els very secure in Dr. Teresa's care. She welcomed prayer, and expressed appreciation for th visit. Follow up with regular visits, emotional and spiritual support. iscellaneo us - ONBASE SCAN [facility] - 06/25/2014 12:00 AM PDTElectronically [...] [address] | | | | | | [place] [address] | | | | | | [phone] | | | | | | | | +--------+ + + + + | 06/26/ | Office | Cardiology | Dora De La Torre | | | 2019 | Visit | | [address] | | | | | | [address] | | | | | | [place] [address] | | | | | | [phone] | | | | | | | [...] mL/min/1.73m2 | [facility] | | | [facility] | RATE,ESTIMATED | | MEDICAL | | | | mL/min/1.55a1Fwld than | | CENTER - | | [...] + | [facility] | [address] | [place], [place] | [phone] | | [facility] | | [address] | | | - LABORATORY | | | | + + + + + | [facility] | [address] | [place], [place] | | | [facility] | | [address] [place] [address] | | | - LABORATORY | | [...] + | [facility] | [address] | [place], [place] | [phone] | | [facility] | | [address] | | | - LABORATORY | | | | + + + + + | [facility] | [address] | [place] | | | [facility] | | [address] | | | - LABORATORY [...] [address] | [place] | [phone] | | [facility] | | [address] | | | - LABORATORY | | | | + + + + + | [facility] | [address] | [place] | | | [facility] | | [address], [facility] | | | - [...] | | [facility] | | [address] | | | - BLOOD BANK | [...] | + + + + + | [facility] | [address] | [place], [place] | [phone] | | [facility] | | [address] | | | - LABORATORY | | | | + + + + + | [facility] | [address] | [place], [place] | | | [facility] | | [address], [facility] | | | - [...]
--- OUTSIDE RECORDS SUMMARY | ~2020-05-06 | XMS | Encounter Summary ---
Demographics + + + | Address | [address] | | | [place] [address] | + + + | Home Phone [...] [place] | | | | | [address] | | + + + + + Care Team Providers + +------+ + | Care Health Care Marketing Specialist Name | Role | Phone [...] 10/04/ | Office | [facility] | Desiree Peterson DO | ROGERS on CPAP (Primary | | 2019 | Visit | CARDIOLOGY [place] | [address] | Dx); Morbid obesity | | | | [address] | [address] [place], [place] | (HCC); Benign | | | | [address] | [address] | essential HTN; | | | | [place], [place] | | Atrial fibrillation, | | | | [address] | | unspecified type | | | | [phone] | | ([facility]) | +--------+---------+ + + [...] Desiree Peterson, - 10/04/2019 11:40 AM PST [facility] Cardiology Cardiology Follow Up Note [...] rtake in exercise. She recently got a EZbuildingEHS and has been walking him more regularly. [...] by mouth daily. Blood Glucose Monitoring Suppl (XenSourceIO FLEX SYSTEM) w/Device KIT by Does not ap ply route. budesonide-formoterol (SYMBICORT) 160-4.5 MCG/ACT inhaler Inhale 2 puffs into the lungs 2 (two) times daily. Calcium Carbonate Antacid 1000 MG tablet Take 1,000 mg by mouth 3 (three) times daily. Cholecalciferol (VITAMIN D3) 41976 units CAPS Take by mouth once a [...] [address] | | | | | | [place] [address] | | | | | | [phone] | | | | | | | | +--------+ + + + + | 06/26/ | Office | Cardiology | Dora De La Torre | | | 2019 | Visit | | [address] | | | | | | [address] | | | | | | [place] [address] | | | | | | [phone] | | | | | | | [...]
--- OUTSIDE RECORDS SUMMARY | ~2020-05-06 | XMS | Encounter Summary ---
Demographics + + + | Address | [address] | | | [place] [address] | + + + | Home Phone [...] [place] | | | | | [address] | | + + + + + Care Team Providers + +------+ + | Care Machine Maintenance Technician Name | Role | Phone | + +------+ + | Adriano Patrick MD | PCP | | + +------+ + Encounter Details +--------+ + + + + | Date | Type | Department | Care Team | Description | +--------+ + + + + | 06/10/ | Abstract | [facility] | Thierry Fry | | | 2014 | | MEDICINE [facility] | MD Lisa [address] | | | [address] [place], | [place], [place] | | | | | [place] [address] | [address] | | | | | [phone] | | | +--------+ + + + [...] | | | | | [place] [address] | | | | | | [phone] | | | | | | | | +--------+ + + + + | 06/26/ | Office | Cardiology | Dora De La Torre | | | 2019 | Visit | | [address] | | | | | | [address] | | | | | | [place] [address] | | | | | | [phone] | | | | | | | [...]
--- OUTSIDE RECORDS SUMMARY | ~2020-05-06 | XMS | Encounter Summary ---
Demographics + + + | Address | [address] | | | [place] [address] | + + + | Home Phone [...] [place] | | | | | [address] | | + + + + + Care Team Providers + +------+ + | Care Sports Doctor Name | Role | Phone | [...] [place] | | | | | | [address] | | | | | | [phone] | | | +--------+ + + + [...] | | | | | [place] [address] | | | | | | [phone] | | | | | | | | +--------+ + + + + | 06/26/ | Office | Cardiology | Dora De La Torre | | | 2020 | Visit | | [address] | | | | | | [address] | | | | | | [place] [address] | | | | | | [phone] | | | | | | | | +--------+ + + + + documented as of this encounter Visit Diagnoses Not on filedocumented in this encounter"
--- OUTSIDE RECORDS SUMMARY | ~2020-05-06 | XMS | Encounter Summary ---
Demographics + + + | Address | [address] | | | [place] [address] | + + + | Home Phone [...] [place] | | | | | [address] | | + + + + + Care Team Providers + +------+ + | Care Solution Sales Senior Executive Name | Role | Phone | [...] | Neurosurgery | Diagnoses | Ganesh, | Biri, | | | | | Back pain | Natalee Hurst, | Frandy Simons DO | | | | | Procedures | FILTER TANK OPERATOR [address] | [address] | | | | | PA OFFICE | | [address] | | | | | CONSULTATION | [address] | [place] | | | | | NEW/ESTAB | [facility], | [address] Phone: | | | | | PATIENT 60 | [place] [address] | [phone] | | | | | MIN | Phone: | Fax: | | | | | | [phone] | [phone] | | | | | | Fax: | | | | | | | [phone] | | +--------+--------+ + + + + Encounter Details +--------+---------+ + + + | Date | Type | Department | Care Team | Description | +--------+---------+ + + + | 05/02/ | Office | [facility] | Frandy Teresa, | Spondylolisthesis of | | 2013 | Visit | NEUROSURGERY [address] | DO [address] | lumbar region | | | | [address] | [address] [place], [place] | (Primary Dx); Lumbar | | | | [place], [place] | [id number] | stenosis; Lumbar | | | | [address] | | radicular pain; | | | | [phone] | | Lumbago | +--------+---------+ + + [...] present for surgery when scheduled.Electronically signed by Frnady Teresa DO at 11:32 AM PDT documented in this encounter Progress Notes Frandy Teresa DO - 05/02/2014 11:33 AM PDTFormatting of this note might be different fro m the original. Frandy Teresa DO [address] [facility] [place], [place] [id number] FAX: NEUROSURGERY HISTORY AND PHYSICAL EXAMINATION CHIEF [...] Take 15 mg by mouth nightl y. [place]-3 Fatty Acids (FISH OIL CONCENTRATE) 1000 [...] has no apparent deficits with short or intermission coordinator memory. CRANIAL NERVES: II: Acuity is intact. [...] Intrinsics 5 5 Ulnar Intrinsics 5 5 Coding Director Strength 5 5 Hip Flexion 5 [...] and benefits to surgical intervention with Ms. Arntd in clinic. These risks included but were [...] encounter Miscellaneous Notes Miscellaneous - ONBASE SCAN [facility] - 05/02/2014 12:00 AM PDTElectronically signed by [facility] at 05/08/2014 8:57 AM PDTMiscellaneous - ONBASE SCAN [facility] - 05/02/2014 12:00 AM PDTEle ctronically signed by [facility] at 05/08/2014 8:56 AM PDTdocumented in [...] C[address]U | | | | | | [place] [address] | | | | | | [phone] | | | | | | | | +--------+ + + + + | 06/26/ | Office | Cardiology | Dora De La Torre | | | 2019 | Visit | | [address] | | | | | | [address] | | | | | | [place] [address] | | | | | | [phone] | | | | | | | [...]
--- OUTSIDE RECORDS SUMMARY | ~2020-05-06 | XMS | Encounter Summary ---
Demographics + + + | Address | [address] | | | [place] [address] | + + + | Home Phone [...] Author | [facility] | | [...] [place] | | | | | [address] | | + + + + + Care Team Providers + +------+ + | Care Wood Boatbuilder Apprentice Name | Role | Phone | [...] + + | 11/25/ | Telephone | [facility] | Frandy Teresa, | Medication Refill | | 2014 | | NEUROSURGERY [address] | DO [address] | Assistance | | | | [facility] [address] | [address] [place], [place] | | | | | [place], [place] | [id number] | | | | | [address] | | | | | | [phone] | | | +--------+ + + + [...] get a refill of her pain medication [place] 10-325 mg. I l et her know we are beyond the 90 days after her surgery and refills need to come from her [facility] provider. She requests us to update [...] [address] | | | | | | [place] [address] | | | | | | [phone] | | | | | | | | +--------+ + + + + | 06/26/ | Office | Cardiology | Dora De La Torre | | | 2019 | Visit | | [address] | | | | | | [address] | | | | | | [place] [address] | | | | | | [phone] | | | | | | | | +--------+ + + + + documented as of this encounter Visit Diagnoses Not on filedocumented in this encounter"
--- OUTSIDE RECORDS SUMMARY | ~2020-05-06 | XMS | Encounter Summary ---
Demographics + + + | Address | [address] | | | [place] [address] | + + + | Home Phone [...] [place] | | | | | [address] | | + + + + + Care Team Providers + +------+ + | Care Steamtable Attendant Railroad Name | Role | Phone | + +------+ + | Natalee Andersen NP | PCP | | + +------+ + Encounter Details +--------+ + + + + | Date | Type | Department | Care Team | Description | +--------+ + + + + | 09/27/ | Hospital | [facility] | Frandy Teresa, | Lumbar spondylosis; | | 2013 | Encounter | MED CTR XRAY [address] | DO [address] | S/P lumbar fusion | | | | [place] | [address] [place], [place] | | | | | [place] [address] | [address] | | | | | [phone] | | | +--------+ + + + [...] + + + +---------+ + + | [place]-3 Fatty | Take 1,000 mg by [...] [address]U | | | | | | [place] [address] | | | | | | [phone] | | | | | | | | +--------+ + + + + | 06/26/ | Office | Cardiology | Dora De La Torre | | | 2019 | Visit | | [address] | | | | | | [address] | | | | | | [place] [address] | | | | | | [phone] | | | | | | | [...] + | MISCELLANEOUS LAB | | | [phone] | + +---------+ + + | MISCELANIOUS LAB | | | [phone] | + +---------+ + + documented in this encounter Visit Diagnoses + + | Diagnosis | + + | Lumbar spondylosis Lumbosacral spondylosis without myelopathy | + + | S/P lumbar fusion Arthrodesis status | + + documented in this encounter"
--- OUTSIDE RECORDS SUMMARY | ~2020-05-06 | XMS | Encounter Summary ---
Demographics + + + | Address | [address] | | | [place] [address] | + + + | Home Phone [...] [place] | | | | | [address] | | + + + + + Care Team Providers + +------+ + | Care Ordinary Seaman Name | Role | Phone | [...] | Frandy Simons DO | [address] | | | | | of skin | [address] | [place], | | | | | sensation | [address] | [place] | | | | | Arthrodesis | [place], [place] | [address] | | | | | status Left | [address] | Phone: | | | | | leg | Phone: | [phone] | | | | | weakness | [phone] | Fax: | | | | | Procedures | Fax: | [phone] | | | | | MRI Lumbar | [phone] | | | | | | Spine [...] | Frandy Simons DO | [address] | | | | | of skin | [address] | [place], | | | | | sensation | [address] | [place] | | | | | Arthrodesis | [place] | [address] | | | | | status Left | [address] | Phone: | | | | | leg | Phone: | [phone] | | | | | weakness | [phone] | Fax: | | | | | Procedures | Fax: | [phone] | | | | | MRI Lumbar | [phone] | | | | | | Spine wo | | | | | | | Contrast | | | +--------+--------+ + + + + Encounter Details +--------+ + + + + | Date | Type | Department | Care Team | Description | +--------+ + + + + | 08/19/ | Hospital | [facility] | Frandy Teresa, | Status post lumbar | | 2013 | Encounter | MED CTR MRI [address] | DO [address] | spinal fusion; Left | | | | [address] [place], | [address] [place] | leg numbness; Left | | | | [place] [address] | [address] | leg weakness | | | | [phone] | | | +--------+ + + + [...] + + + +---------+ + + | Lookout-3 Fatty | Take 1,000 mg by | [...] [address] | | | | | | [place] [address] | | | | | | [phone] | | | | | | | | +--------+ + + + + | 06/26/ | Office | Cardiology | Dora De La Torre | | | 2019 | Visit | | [address] | | | | | | [address] | | | | | | [place] [address] | | | | | | [phone] | | | | | | | [...] the round structure with high T1 and X2tundyo in the right L3 vertebral | | [...] + | MISCELLANEOUS LAB | | | [phone] | + +---------+ + + | MISCELANIOUS LAB | | | [phone] | + +---------+ + + documented in [...]
--- OUTSIDE RECORDS SUMMARY | ~2020-05-06 | XMS | Encounter Summary ---
Demographics + + + | Address | [address] | | | [place] [address] | + + + | Home Phone [...] [place], [place] | | | | | [address] | | + + + + + Care Team Providers + +------+ + | Care Emergency Care Attendant Name | Role | Phone | + +------+ + PCP | Unavailable | + +------+ + Encounter Details +--------+ + + + + | Date | Type | Department | Care Team | Description | +--------+ + + + + | 12/31/ | Hospital | [facility] | | | | 1996 | Encounter | MED CTR XRAY [address] | | | | | | [address] | | | | | | [place] [address] | | | | | | [phone] | | | +--------+ + + + [...] | | | | | [place] [address] | | | | | | [phone] | | | | | | | | +--------+ + + + + | 06/26/ | Office | Cardiology | Dora De La Torre | | | 2019 | Visit | | [address] | | | | | | [address] | | | | | | [place] [address] | | | | | | [phone] | | | | | | | | +--------+ + + + + documented as of this encounter Visit Diagnoses Not on filedocumented in this encounter"
--- OUTSIDE RECORDS SUMMARY | ~2020-05-06 | XMS | Encounter Summary ---
Demographics + + + | Address | [address] | | | [place] [address] | + + + | Home Phone [...] [place] | | | | | [address] | | + + + + + Care Team Providers + +------+ + | Care Director For Beauty School Name | Role | Phone | [...] + | 08/13/ | Documentati | [facility] | Katharine Moncada, | Other (urgent | | 2019 | on | CARDIOLOGY [place] | Technologist | report) | | | | [address] | | | | | | [place] | | | | | | [address] | | | | | | [phone] | | | +--------+ + + + [...] | | | | | [place] [address] | | | | | | [phone] | | | | | | | | +--------+ + + + + | 06/26/ | Office | Cardiology | Dora De La Torre | | | 2020 | Visit | | [address] | | | | | | [address] | | | | | | [place] [address] | | | | | | [phone] | | | | | | | | +--------+ + + + + documented as of this encounter Visit Diagnoses Not on filedocumented in this encounter"
--- OUTSIDE RECORDS SUMMARY | ~2020-05-06 | XMS | Encounter Summary ---
Demographics + + + | Address | [address] | | | [place] [address] | + + + | Home Phone [...] [place], [place] | | | | | [address] | | + + + + + Care Team Providers + +------+ + | Care Dry Roller Name | Role | Phone | + +------+ + PCP | Unavailable | + +------+ + Encounter Details +--------+ + + + + | Date | Type | Department | Care Team | Description | +--------+ + + + + | 07/17/ | Hospital | [facility] | | | | 1997 | Encounter | MED CTR EMERGENCY | | | | | | [address] | | | | | | [place] | | | | | | [address] | | | | | | [phone] | | | +--------+ + + + [...] | | | | | [place] [address] | | | | | | [phone] | | | | | | | | +--------+ + + + + | 06/26/ | Office | Cardiology | Dora De La Torre | | | 2020 | Visit | | [address] | | | | | | [address] | | | | | | [place] [address] | | | | | | [phone] | | | | | | | | +--------+ + + + + documented as of this encounter Visit Diagnoses Not on filedocumented in this encounter"
--- OUTSIDE RECORDS SUMMARY | ~2020-05-06 | XMS | Encounter Summary ---
Demographics + + + | Address | [address] | | | [place] [address] | + + + | Home Phone [...] [place] | | | | | [address] | | + + + + + Care Team Providers + +------+ + | Care Line Assembler Name | Role | Phone | [...] [place] | | | | | | [address] | | | | | | [phone] | | | +--------+ + + + [...] | | | | | [place] [address] | | | | | | [phone] | | | | | | | | +--------+ + + + + | 06/26/ | Office | Cardiology | Dora De La Torre | | | 2020 | Visit | | [address] | | | | | | [address] | | | | | | [place] [address] | | | | | | [phone] | | | | | | | | +--------+ + + + + documented as of this encounter Visit Diagnoses Not on filedocumented in this encounter"
--- OUTSIDE RECORDS SUMMARY | ~2020-05-06 | XMS | Encounter Summary ---
Demographics + + + | Address | [address] | | | [place] [address] | + + + | Home Phone [...] [place] | | | | | [address] | | + + + + + Care Team Providers + +------+ + | Care Educational Program Assistant Name | Role | Phone | [...] + + | 10/25/ | Telephone | [facility] | Ashley Chávez | Other (Patient to | | 2019 | | CARDIOLOGY [place], Duct Layer | stay on the same | | | | [address] | | dose. ) | | | | [place] | | | | | | [address] | | | | | | [phone] | | | +--------+ + + + [...] Miscellaneous Notes Telephone Encounter - Ashley Chávez Duct Layer - 10/25/2019 8:44 AM PSTCall m cierra [...] CLAYTONW:IRINA-AAMA. el ephone Encounter - Ashley Chávez Duct Layer - 10/25/2019 8:40 AM PST----- Mess age from Desiree Peterson DO sent at 10/24/2019 8:42 PM PST ----- Regarding: RE: Patient's Metoprolol. We can stay on the same dose of metoprolol for now. Thanks ----- Message ----- From: Ashley Chávez Duct Layer Sent: 10/23/2019 10:52 AM PST To: Desiree [...] | | | | | [place] [address] | | | | | | [phone] | | | | | | | | +--------+ + + + + | 06/26/ | Office | Cardiology | Dora De La Torre | | | 2020 | Visit | | [address] | | | | | | [address] | | | | | | [place] [address] | | | | | | [phone] | | | | | | | | +--------+ + + + + documented as of this encounter Visit Diagnoses Not on filedocumented in this encounter"
--- OUTSIDE RECORDS SUMMARY | ~2020-05-06 | XMS | Encounter Summary ---
Demographics + + + | Address | [address] | | | [place] [address] | + + + | Home Phone [...] [place] | | | | | [address] | | + + + + + Care Team Providers + +------+ + | Care Commercial Internship Name | Role | Phone | [...] + + | 03/07/ | Telephone | [facility] | Katharine Cardona PA-C | Results | | 2014 | | MEDICINE [place] | [address] [facility] | | | | | [address] | [place] [address] | | | | | [place], [place] | [phone] | | | | | [address] | | | | | | [phone] | | | +--------+ + + + [...] Miscellaneous Notes Telephone Encounter - Adrianne Horton, Piano Player - 03/11/2015 3:41 PM PDTCalled Pat and delivered her results. Patient verbalized good understanding. elephone Encounter - Adrianne Horton , Piano Player - 03/11/2015 8:40 AM PDTCall placed to [...] [address] | | | | | | [place] [address] | | | | | | [phone] | | | | | | | | +--------+ + + + + | 06/26/ | Office | Cardiology | Dora De La Torre | | | 2019 | Visit | | [address] | | | | | | [address] | | | | | | [place] [address] | | | | | | [phone] | | | | | | | | +--------+ + + + + documented as of this encounter Visit Diagnoses Not on filedocumented in this encounter"
--- OUTSIDE RECORDS SUMMARY | ~2020-05-06 | XMS | Encounter Summary ---
Demographics + + + | Address | [address] | | | [place] [address] | + + + | Home Phone [...] [place] | | | | | [address] | | + + + + + Care Team Providers + +------+ + | Care Restaurant Cook Name | Role | Phone | [...] + + | 02/26/ | Emergency | [facility] | [place], | CVA (cerebral | | 2015 | | MED CTR EMERGENCY | Davey Simons MD [address] | vascular accident) | | | | CENTER [address] | [address] [facility] | ([facility]) (Primary Dx) | | | | [place], [place] | [place] [address] | | | | | [address] | [phone] | | | | | [phone] | | | +--------+ + + + [...] + + + +---------+ + + | [place]-3 Fatty | Take 1,000 mg by [...] might be differe nt from the original. [facility] Emergency Department Encounter Note [address] [place] [address] PCP:Natalee Andersen [phone] CHIEF COMPLAINT: Chief Complaint Patient presents with Facial Droop ED Room: ED07/ED07 HPI Cindy Arndt is a 59 y.o. female who presents to the Emergency Department accompanied by a friend from [place] for evaluation. The patient recently had symptoms that were diagno sed as stroke or TIA. The symptoms were of a weakness and numbness in her right arm and leg . She was hospitalized for 4 days in [place] for this. She was discharged and subsequent ly has had 2 or 3 emergency department visits in [place] for symptoms diagnosed as TIAs. These have been recurrent and worsening right arm and leg weakness and then today with some right facial drooping and drooling. She is on Aggrenox. She had a full workup in [place] including brain CT, brain MRI, and carotid [...] or Severe Contraindications. Consult references such as [employer] Guides for furthe r information. Magnesium 250 MG [...] or Severe Contraindications. Consult references such as [employer] Guides for further information. Multiple Vitamins-Minerals (CENTRUM SILVER PO) Take 1 tablet by mouth Daily.Historical Med OLANZapine zydis (ZYPREXA ZYDIS) 15 MG disintegrating tablet Take 15 mg by mouth nightly. [place]-3 Fatty Acids (FISH OIL CONCENTRATE) 1000 [...] review all of her imaging studies from [facility] ED COURSE & MEDICAL DECISION MAKING Pertinent Labs & Imaging studies were reviewed along with EMS notes and senior living record s if applicable. (See chart for details) Medications and Allergy list reviewed. Nurses note and old records were reviewed The patient was seen and examined, I was finally able to get her records from [facility] which showed a normal MRI and [...] accident) (HCC) Follow-up Information Follow up with [facility]. Specialty: Emergency Medicine Contact information: [address] [address] Follow up with [facility]. Specialty: Emergency Medicine Contact information: [address] [address] Follow up with Natalee Andersen NP. Specialty: Family Nurse Practitioner Contact information: [address] [place] [address] Schedule an appointment as soon as possible for a visit with Baudilio Newman MD. Specialty: Neurology Contact information: [address] [facility] [address] Discharge Medication List as of 02/26/2015 15:21 Davey Varela MD 02/26/15 1732 do cumented in this encounter Miscellaneous Notes ED Triage Notes - Yesenia Monroy RN - 02/26/2015 1:11 PM PDTC/O right sided facial mahendra op and numbness to right arm and leg onset yesterday at approximately 1800. Pt was seen in [facility] by her primary care physician this [...] [address] | | | | | | [place] [address] | | | | | | [phone] | | | | | | | | +--------+ + + + + | 06/26/ | Office | Cardiology | Dora De La Torre | | | 2019 | Visit | | [address] | | | | | | [address] | | | | | | [place] [address] | | | | | | [phone] | | | | | | | [...] | | MEDICAL | | | | mL/min/1.29r0Gcmx than | | CENTER - | | [...] [address] | [address] | [phone] | | [facility] | | [address] | | | - LABORATORY | | [...] PROVIDEDONTRELLE | | | Basophils | | K/rEinn | [facility] | | | | [...] [address] | [place] | [phone] | | [facility] | | [address] | | | - LABORATORY | | [...] | ---- | | | 02/26/2015 13:10 [facility] | | | Emergency -numbness/facial droop 02/26/2015 08:15 [facility] | | | [facility] 02/19/2015 | | | [...] status 02/06/2015 10:46 | | | [facility] | | | -Generalized [...] ------ | | | --------- [address] | | | [facility] [address] | | | [facility] 7 0 Total | | | Note: Visits indicate total known visits. Medicaid [place] Dx are the | | | number of primary diagnoses on the [facility]'s non-emergent dx list. | | [...]
--- OUTSIDE RECORDS SUMMARY | ~2020-05-06 | XMS | Encounter Summary ---
Demographics + + + | Address | [address] | | | [place] [address] | + + + | Home Phone [...] [place] | | | | | [address] | | + + + + + Care Team Providers + +------+ + | Care Sports Bookmaker Name | Role | Phone | + [...] [address] | | | | | [place], [place] | Shaheen Simons | | | | | [address] | [place] [address] | | | | | [phone] | [phone] | | | | | | | [...] [address] | | | | | | [place] [address] | | | | | | [phone] | | | | | | | | +--------+ + + + + | 06/26/ | Office | Cardiology | Dora De La Torre | | | 2019 | Visit | | [address] | | | | | | [address] | | | | | | [place] [address] | | | | | | [phone] | | | | | | | [...] | | | performed at [facility];[address] [place] [address];[place] [address] CULTURE | | | 50,000 TO 100,000 CFU/ML | | | MIXED GRAM POSITIVE HAIDER NO SUSCEPTIBILITY TO FOLLOW | | | MULTIPLE ORGANISM TYPES PRESENT, | | | SUGGESTIVE OF CONTAMINATION OR COLONIZATION. SUGGEST RECOLLECTION FOR | | | CULTURE. Testing | | | performed at [facility];[address] [place] [address];[place] [address] REPORT | | | STATUS 06/08/2012 FINAL [...]
--- OUTSIDE RECORDS SUMMARY | ~2020-05-06 | XMS | Encounter Summary ---
Demographics + + + | Address | [address] | | | [place] [address] | + + + | Home Phone [...] [place] | | | | | [address] | | + + + + + Care Team Providers + +------+ + | Care Net Technical Architect Name | Role | Phone | [...] [address] | [address] [place], [place] | Hypothyroidism; | | | | [place] | [address] | GERD; BACK PAIN, | | | | [address] | | LUMBAR, WITH | | | | [phone] | | RADICULOPATHY; | | | | [...] | | | | | [place] [address] | | | | | | [phone] | | | | | | | | +--------+ + + + + | 06/26/ | Office | Cardiology | Dora De La Torre | | | 2020 | Visit | | [address] | | | | | | [address] | | | | | | [place] [address] | | | | | | [phone] | | | | | | | [...]
--- OUTSIDE RECORDS SUMMARY | ~2020-05-06 | XMS | Encounter Summary ---
Demographics + + + | Address | [address] | | | [place] [address] | + + + | Home Phone [...] [place] | | | | | [address] | | + + + + + Care Team Providers + +------+ + | Care Gear Grinding Machine Operator Name | Role | Phone [...] | 08/26/ | Refill | [facility] | Frandy Teresa, | Medication Refill | | 2013 | | NEUROSURGERY [address] | DO [address] | | | | | [address] [facility] [address] | [address] [place], [place] | | | | | [place], [place] | [id number] | | | | | [address] | | | | | | [phone] | | | +--------+--------+ + + + [...] to notify that p rescription refill for Papaaloa has been authorized. Informed about MRI results per MD results. Also notified about new medication neurontin. Pt verbalized understanding and will notify o ur office if her numbness to bilat feet (upper and lower) doesn't improve. Pt requested refi ll rx of Papaaloa to be mailed via certified mail to [facility] signed by Megan Schreiber, [...] PSTPt called to requesting medication refill of Papaaloa. Pt c/o l ower back and left [...] [address] | | | | | | [place] [address] | | | | | | [phone] | | | | | | | | +--------+ + + + + | 06/26/ | Office | Cardiology | Dora De La Torre | | | 2019 | Visit | | [address] | | | | | | [address] | | | | | | [place] [address] | | | | | | [phone] | | | | | | | | +--------+ + + + + documented as of this encounter Visit Diagnoses Not on filedocumented in this encounter"
--- OUTSIDE RECORDS SUMMARY | ~2020-05-06 | XMS | Encounter Summary ---
Demographics + + + | Address | [address] | | | [place] [address] | + + + | Home Phone [...] [place] | | | | | [address] | | + + + + + Care Team Providers + +------+ + | Care Director Of Global Sales Name | Role | Phone | [...] + + | 08/24/ | Documentati | [facility] | Katharine Moncada, | Other (urgent | | 2019 | on | CARDIOLOGY [place] | Technologist | report) | | | | [address] | | | | | | [place] | | | | | | [address] | | | | | | [phone] | | | +--------+ + + + [...] | | | | | [place] [address] | | | | | | [phone] | | | | | | | | +--------+ + + + + | 06/26/ | Office | Cardiology | Dora De La Torre | | | 2020 | Visit | | [address] | | | | | | [address] | | | | | | [place] [address] | | | | | | [phone] | | | | | | | | +--------+ + + + + documented as of this encounter Visit Diagnoses Not on filedocumented in this encounter"
--- OUTSIDE RECORDS SUMMARY | ~2020-05-06 | XMS | Encounter Summary ---
Demographics + + + | Address | [address] | | | [place] [address] | + + + | Home Phone [...] [place] | | | | | [address] | | + + + + + Care Team Providers + +------+ + | Care Transfer Controller Name | Role | Phone | [...] + + | 08/20/ | Documentati | [facility] | Katharine Moncada, | Other (urgent | | 2019 | on | CARDIOLOGY [place] | Technologist | report) | | | | [address] | | | | | | [place] | | | | | | [address] | | | | | | [phone] | | | +--------+ + + + [...] | | | | | [place] [address] | | | | | | [phone] | | | | | | | | +--------+ + + + + | 06/26/ | Office | Cardiology | Dora De La Torre | | | 2020 | Visit | | [address] | | | | | | [address] | | | | | | [place] [address] | | | | | | [phone] | | | | | | | | +--------+ + + + + documented as of this encounter Visit Diagnoses Not on filedocumented in this encounter"
--- OUTSIDE RECORDS SUMMARY | ~2020-05-06 | XMS | Encounter Summary ---
Demographics + + + | Address | [address] | | | [place] [address] | + + + | Home Phone [...] [place] | | | | | [address] | | + + + + + Care Team Providers + +------+ + | Care Java Security Architect Name | Role | Phone [...] + + | 08/14/ | Telephone | [facility] | Ashley Chávez | Other (Patient was | | 2018 | | CARDIOLOGY [place] Abad, Mold Machine Operator | anxious about urgent | | | | [address] | | reports. ) | | | | [place] | | | | | | [address] | | | | | | [phone] | | | +--------+ + + + [...] Miscellaneous Notes Telephone Encounter - Ashley Chávez, Mold Machine Operator - 08/14/2019 9:16 AM Seferino foster called [...] the urgent report, and she doubts that jees would have called her. I called the [...] for the time being. Patient stated understanding. JDW:DIRECTOR SAFETY-AAMA. [facility] umented in this encounter Plan of [...] | | | | | [place] [address] | | | | | | [phone] | | | | | | | | +--------+ + + + + | 06/26/ | Office | Cardiology | Dora De La Torre | | | 2020 | Visit | | [address] | | | | | | [address] | | | | | | [place] [address] | | | | | | [phone] | | | | | | | | +--------+ + + + + documented as of this encounter Visit Diagnoses Not on filedocumented in this encounter"
--- OUTSIDE RECORDS SUMMARY | ~2020-05-06 | XMS | Encounter Summary ---
Demographics + + + | Address | [address] | | | [place] [address] | + + + | Home Phone [...] [place] | | | | | [address] | | + + + + + Care Team Providers + +------+ + | Care Office Workforce Planner Name | Role | Phone [...] + | 06/27/ | Office | [facility] | Yecenia Richardson, | Hypertension, | | 2019 | Visit | CARDIOLOGY [place] | MD Nitin RODRIGUES | unspecified type | | | | [address] | [place], [place] | (Primary Dx); | | | | KEV SCHAFER [facility] | [address] | Bradycardia | | | | [place] | | | | | | [address] | | | | | | [phone] | | | +--------+---------+ + + + [...] urgent basis. Had an appointment today in [facility]. She has been feeling dizzy as of [...] Take by mouth. Blood Glucose Monitoring Suppl (mon.ki VERIO FLEX SYSTEM) w/Device KIT by Does [...] mg by mouth Daily. Cholecalciferol (VITAMIN D-3) 00914 units CAPS Take 50,000 Units by mouth [...] tablet Take 10 mg by mouth nightly. [place]-3 Fatty Acids (FISH OIL CONCENTRATE) 1000 MG [...] [address] | | | | | | [place] [address] | | | | | | [phone] | | | | | | | | +--------+ + + + + | 06/26/ | Office | Cardiology | Dora De La Torre | | | 2019 | Visit | | [address] | | | | | | [address] | | | | | | [place] [address] | | | | | | [phone] | | | | | | | [...]
--- OUTSIDE RECORDS SUMMARY | ~2020-05-06 | XMS | Encounter Summary ---
Demographics + + + | Address | [address] | | | [place] [address] | + + + | Home Phone [...] [place] | | | | | [address] | | + + + + + [...] + + | 09/10/ | Documentati | [facility] | Katharine Moncada, | Other (urgent | | 2019 | on | CARDIOLOGY [place] | Technologist | report) | | | | [address] | | | | | | [place] | | | | | | [address] | | | | | | [phone] | | | +--------+ + + + [...] | | | | | [place] [address] | | | | | | [phone] | | | | | | | | +--------+ + + + + | 06/26/ | Office | Cardiology | Dora De La Torre | | | 2020 | Visit | | [address] | | | | | | [address] | | | | | | [place] [address] | | | | | | [phone] | | | | | | | | +--------+ + + + + documented as of this encounter Visit Diagnoses Not on filedocumented in this encounter"
--- OUTSIDE RECORDS SUMMARY | ~2020-05-06 | XMS | Encounter Summary ---
Demographics + + + | Address | [address] | | | [place] [address] | + + + | Home Phone [...] [place] | | | | | [address] | | + + + + + Care Team Providers + +------+ + | Care Can Capper Name | Role | Phone | + +------+ + | Natalee Anderesn NP | PCP | | + +------+ [...] | | | | | [address] | [place], [place] | | | | | [place], [place] | [address] | | | | | [address] | | | | | | [phone] | | | +--------+ + + + [...] EVALUATION Cindy Arndt 58 y.o. female 1955 [id number] Scheduled procedure LAMINECTOMY PLIF/TLIF INSTRUMENTATION [1842] - L5-S1 TLIF Medical history, anesthesia, medications, allergy histories reviewed. ECG reviewed. Labs reviewed. ROS / Med History Ane (+) PONV. (-) difficult intubation, malignant hyperthermia . NPO status verified. CV (+) hypertension.(-) past DC. (+) Dysrhythmias (h/o PVCs) Exercise tolerance >4 [...] | | | | | [place] [address] | | | | | | [phone] | | | | | | | | +--------+ + + + + | 06/26/ | Office | Cardiology | Dora De La Torre | | | 2020 | Visit | | [address] | | | | | | [place] | | | | | | [place] [address] | | | | | | [phone] | | | | | | | | +--------+ + + + + documented as of this encounter Visit Diagnoses Not on filedocumented in this encounter"
--- OUTSIDE RECORDS SUMMARY | ~2020-05-06 | XMS | Encounter Summary ---
Demographics + + + | Address | [address] | | | [place] [address] | + + + | Home Phone [...] [place] | | | | | [address] | | + + + + + Care Team Providers + +------+ + | Care Irrigation System Installer Name | Role | Phone | [...] + + | 02/06/ | Telephone | [facility] | Roxannmiguel ángelDora | Patient Concerns | | 2020 | | CARDIOLOGY [place] | [address] | | | | | [address] | [address] [address] | | | | | [address] | [place] [address] | | | | | [place] | [phone] | | | | | [address] | | | | | | [phone] | | | +--------+ + + + [...] [place] | | | | | | [place] [address] | | | | | | [phone] | | | | | | | | +--------+ + + + + | 06/26/ | Office | Cardiology | Dora De La Torre | | | 2019 | Visit | | [address] | | | | | | [place] | | | | | | [place] [address] | | | | | | [phone] | | | | | | | | +--------+ + + + + documented as of this encounter Visit Diagnoses Not on filedocumented in this encounter"
--- OUTSIDE RECORDS SUMMARY | ~2020-05-06 | XMS | Encounter Summary ---
Demographics + + + | Address | [address] | | | [place] [address] | + + + | Home Phone [...] [place] | | | | | [address] | | + + + + + Care Team Providers + +------+ + | Care Intel Analyst Name | Role | Phone | [...] + | 06/20/ | Telephone | [facility] | Frandy Teresa, | Other (surgery | | 2013 | | NEUROSURGERY [address] | DO [address] | reminder ) | | | | [address] | [address] [place], [place] | | | | | [place], [place] | [id number] | | | | | [address] | | | | | | [phone] | | | +--------+ + + + [...] [address] | | | | | | [place] [address] | | | | | | [phone] | | | | | | | | +--------+ + + + + | 06/26/ | Office | Cardiology | Droa De La Torre | | | 2019 | Visit | | [address] | | | | | | [place] | | | | | | [place] [address] | | | | | | [phone] | | | | | | | | +--------+ + + + + documented as of this encounter Visit Diagnoses Not on filedocumented in this encounter"
--- OUTSIDE RECORDS SUMMARY | ~2020-05-06 | XMS | Encounter Summary ---
Demographics + + + | Address | [address] | | | [place] [address] | + + + | Home Phone [...] [place], [place] | | | | | [address] | | + + + + + Care Team Providers + +------+ + | Care Mixing Plant Operator Name | Role | Phone | + +------+ + PCP | Unavailable | + +------+ + Encounter Details +--------+ + + + + | Date | Type | Department | Care Team | Description | +--------+ + + + + | 07/23/ | Hospital | [facility] | | | | 1992 - | Encounter | MED CTR GENERIC PSY | | | | | | CONV DEPT [address] | | | | 07/28/ | | [address], | | | | 1992 | | [place] [address] | | | | | | [phone] | | | +--------+ + + + [...] CANTU | | | | | | [place] [address] | | | | | | [phone] | | | | | | | | +--------+ + + + + | 06/26/ | Office | Cardiology | Dora De La Torre | | | 2019 | Visit | | [address] | | | | | | [address] [address] | | | | | | [place] [address] | | | | | | [phone] | | | | | | | | +--------+ + + + + documented as of this encounter Visit Diagnoses Not on filedocumented in this encounter"
--- OUTSIDE RECORDS SUMMARY | ~2020-05-06 | XMS | Encounter Summary ---
Demographics + + + | Address | [address] | | | [place] [address] | + + + | Home Phone [...] [place] | | | | | [address] | | + + + + + Care Team Providers + +------+ + | Care Stoneworking Belt Sander Name | Role | Phone | [...] + + | 12/17/ | Office | [facility] | Dora De La Torre | History of atrial | | 2020 | Visit | CARDIOLOGY [place] | [address] | fibrillation; Benign | | | | [address] | [address] [address] | essential HTN; | | | | [address] | [place] [address] | History of | | | | [place], [place] | [phone] | hypothyroidism; | | | | [address] | | Stress | | | | [phone] | | hyperglycemia; | | | | [...] of fatigue and shortness of breath. Her [id number] VASC score is 4 (stroke, HTN, gender) , and Dr. Peterson did not anticoagulate he r due to low incidence of atrial fib. Her current and previous testing and procedures are detailed below. She was seen in the emergency room on October 11, 2019 at [facility] and presented wi th paranoia feeling that knives were chasing her , so went to the emergency room so that she could feel safe and Had [facility] evaluation and discharged home Labs performed [...] and [facility], and she was to be started on Abilify. She was seen again in the emergency room on October 19 and , [id number] for sim ilar complaints with increased delusions, [...] She has previously seen Dr. Garland in [place], and different provider in [place] when lived over there. She reports she [...] thirst or hunger. Psychiatric/Behavioral: Bipolar/Schizophrenia. Tx'd by [employer] Vaccines: Current on flu vaccine: 2019 Current on pneumonia vaccine:PPSV 23 05/29/2013 Habits/Social : Denies history of smoking. Denies EtOH use. Denies recreational or illici t drug use. Exercises sporadically. Lives in [place] . Outpatient Medications Prior to Visit Medication [...] Take by mouth. Blood Glucose Monitoring Suppl ([employer] VERIO FLEX SYSTEM) w/Device KIT by Does not ap ply route. budesonide-formoterol (SYMBICORT) 160-4.5 mcg/puff inhaler Inhale 2 puffs into the lung s 2 (two) times daily. calcium carbonate antacid (TUMS ULTRA 1000) 1000 MG CHEW Chew and swallow 1,000 mg 4 ti mes daily as needed. Cholecalciferol (VITAMIN D-3) 48310 units CAPS Take 50,000 Units by mouth [...] chest discomfort, patient unable to walk on UpRace. Resting EKG normal sinus rhythm, arrhythmias ventricular [...] nonspecific ST-T wave abnormality rate 82 bpm, MA 176 ms, QRS 80 ms, QTC 446 ms tracing personally reviewed by me EK12/17/2019: Sinus tachycardia, nonspecific ST wave abnormalities, rate 105 bpm, MA 196 ms, QRS 74 ms, QTC 430 ms, tracing personally reviewed by me, and compared to EKG performed in February 2019, rate is less well-controlled LABS Labs: 12/26/2018: ( [facility])CMP: Sodium 139, potassium 4.2, chloride 99, BUN 10, creatinine 0. 7, BNP 28. CBC: WBC 7.8, hemoglobin 14.3, hematocrit 42.7, platelets 214 Labs: 09/28/2019:( [facility]) CBC: WBC 7.8, hemoglobin 14.9, hematocrit 43.8, platelets 221. C MP: Sodium 132, potassium 4.2, chloride 95, AST 76, ALT 76, alk phos 134 Labs: 10/11/2019:( [facility]) CBC: WBC 6.7, RBC 4.97, hemoglobin 15.2, hematocrit 44.7, platel ets 200. CMP: Glucose 385, BUN 7, creatinine 0.62, GFR 97, sodium 131, potassium 4.1, chlor kelby 95, albumin 4.3, total bilirubin 0.6, AST 75, ALT 73, alk phos 144. Thyroid: TSH 4.27 Labs: 10/12/2020:( [facility]) CBC: WBC 7, RBC 4.93, hemoglobin 14.7, hematocrit 44.1, platele ts 186 normal UA CMP: Glucose 381, BUN 6, creatinine 0.63, GFR 95, sodium 133, potassium 3.8 , chloride 97, albumin 4.3, total bili 0.6, AST 62, ALT 75, alk phos 145 thyroid: TSH 3.07 Labs: 10/20/2019:( [facility]) CBC: WBC 7.1, RBC 4.93, [...] continuity of care purp ose Preston BUCIO [facility] Cardiology 12/17/2019 docume nted in [...] [place] | | | | | | [place] [address] | | | | | | [phone] | | | | | | | | +--------+ + + + + | 06/26/ | Office | Cardiology | Britt Dora | | | 2019 | Visit | | [address] | | | | | | [address] | | | | | | [place] [address] | | | | | | [phone] | | | | | | | [...] | | | | | Dora De aL Torre | | | | | | [place] ([id number]) on | | | | | | [...]
--- OUTSIDE RECORDS SUMMARY | ~2020-05-06 | XMS | Encounter Summary ---
Demographics + + + | Address | [address] | | | [place] [address] | + + + | Home Phone [...] [place], [place] | | | | | [address] | | + + + + + Care Team Providers + +------+ + | Care Oncology Rn Name | Role | Phone | + +------+ + PCP | Unavailable | + +------+ + Encounter Details +--------+ + + + + | Date | Type | Department | Care Team | Description | +--------+ + + + + | 01/25/ | Hospital | [facility] | | | | 2002 | Encounter | MED CTR XRAY [address] | | | | | | [place] [address] | | | | | | [place] [address] | | | | | | [phone] | | | +--------+ + + + [...] | | | | | [place] [address] | | | | | | [phone] | | | | | | | | +--------+ + + + + | 06/26/ | Office | Cardiology | Dora De La Torre | | | 2019 | Visit | | [address] | | | | | | [place] | | | | | | [place] [address] | | | | | | [phone] | | | | | | | | +--------+ + + + + documented as of this encounter Visit Diagnoses Not on filedocumented in this encounter"
--- OUTSIDE RECORDS SUMMARY | ~2020-05-06 | XMS | Encounter Summary ---
Demographics + + + | Address | [address] | | | [place] [address] | + + + | Home Phone [...] [place], [place] | | | | | [address] | | + + + + + Care Team Providers + +------+ + | Care Outsole Caser Name | Role | Phone | [...] [address] | | | | | | [place], [place] | | | | | | [address] | | | | | | [phone] | | | +--------+ + + + [...] | | | | | [place] [address] | | | | | | [phone] | | | | | | | | +--------+ + + + + | 06/26/ | Office | Cardiology | Dora De La Torre | | | 2020 | Visit | | [address] | | | | | | [place] | | | | | | [place] [address] | | | | | | [phone] | | | | | | | | +--------+ + + + + documented as of this encounter Visit Diagnoses Not on filedocumented in this encounter
--- OUTSIDE RECORDS SUMMARY | ~2020-05-06 | XMS | Clinical Summary ---
Demographics + + + | Address | [address] | | | [place] [address] | + + + | Home Phone [...] [place] | | | | | [address] | | + + + + + Care Team Providers + +------+ + | Care Trimmer Helper Name | Role | Phone | + +------+ + PCP | Unavailable | + +------+ + Source Comments EDWARD is fully live on both [facility] and [facility] InPatient.[facility] Allergies Not [...] | MEDICA | xxxxxxxxxx | 02/22/20 | [phone] | [address] | Medica | | | RE A & | | 15-Pre | 1 | [address] | re | | | B | | sent | | [place] | | | | | | | | [address] | | + +--------+ +--------+ + +--------+ + +--------+ +--------+ + + | Guarantor Name | Accoun | Relation to | Date | Phone | Billing Address | | | t Type | Patient | of | | | | | | | | | | + +--------+ +--------+ + + | CINDY ARNDT | Person | Self | [birth year] | [address] | | | al/Fam | | 1955 | [phone] | [address] [place] | | | devonte | | | 5 (Home) | [address] | + +--------+ +--------+ + +"
--- OUTSIDE RECORDS SUMMARY | ~2020-05-06 | XMS | Encounter Summary ---
Demographics + + + | Address | [address] | | | [place] [address] | + + + | Home Phone [...] [place] | | | | | [address] | | + + + + + Care Team Providers + +------+ + | Care Director Enterprise Systems Name | Role | Phone | + [...] | Radiology | [facility] | | | | atrial | NEWSPAPER JOURNALIST [address] | [address] | | | | | fibrillation | [place] | [place] | | | | | History of | [address] | [place], [place] | | | | | stroke | [place] | [address] | | | | | Sinus | [address] | Phone: | | | | | tachycardia | Phone: | [phone] | | | | | by | [phone] | Fax: | | | | | electrocardi | Fax: | [phone] | | | | | ogram New | [phone] | | | | | | onset [...] + + | 01/09/ | Office | [facility] | Roxannmiguel ángelDora | History of atrial | | 2020 | Visit | CARDIOLOGY [place] | [address] | fibrillation | | | | [address] | [place] [address] | (Primary Dx); Benign | | | | [address] | [place] [address] | essential HTN; | | | | [place], [place] | [phone] | History of | | | | [address] | | hypothyroidism; | | | | [phone] | | Stress | | | | [...] an urgent Echo to be done at [place] to follow up on new left bundle [...] of fatigue and shortness of breath. 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 She reports after she lost 160 pounds with a gastric sleeve that she was retested for sle ep apnea 2 years ago, and told the results negative, but has not had CPAP for 3 years She has previously seen Dr. Garland in [place], and different sleep provider in [facility] when lived over there. She reports she [...] thirst or hunger. Psychiatric/Behavioral: Bipolar/Schizophrenia. Tx'd by [employer] Vaccines: Current on flu vaccine: 2019 Current on pneumonia vaccine:PPSV 23 05/29/2013 Habits/Social : Denies history of smoking. Denies EtOH use. Denies recreational or illici t drug use. Exercises sporadically. Lives in [place] . Outpatient Medications Prior to Visit Medication [...] by mouth nightly. Blood Glucose Monitoring Suppl ([employer] VERIO FLEX SYSTEM) w/Device KIT by [...] Labs: 12/26/2018: ( [facility])CMP: Sodium 139, potassium 4.2, chloride 99, BUN 10, creatinine 0. 7, BNP 28. CBC: WBC 7.8, hemoglobin 14.3, hematocrit 42.7, platelets 214 Labs: 09/28/2019:( [facility]) CBC: WBC 7.8, hemoglobin 14.9, hematocrit 43.8, platelets 221. C MP: Sodium 132, potassium 4.2, chloride 95, AST 76, ALT 76, alk phos 134 Labs: 10/11/2019:( [facility]) CBC: WBC 6.7, RBC 4.97, hemoglobin 15.2, hematocrit 44.7, platel ets 200. CMP: Glucose 385, BUN 7, creatinine 0.62, GFR 97, sodium 131, potassium 4.1, chlor kelby 95, albumin 4.3, total bilirubin 0.6, AST 75, ALT 73, alk phos 144. Thyroid: TSH 4.27 Labs: 10/12/2020:( [facility]) CBC: WBC 7, RBC 4.93, hemoglobin [...] and reviewed her EKG results with her photographic engineer, Dr. Peterson, who is in the cli vickie today, and the plan is to get an updated echo to evaluate her for any new wall motion ab normalities. If she has any wall motion abnormalities, she will need to have further evalua tion for ischemic heart disease in [place] such as a stress test or angiogram I reviewed her EKG with her, and discussed this plan with her. The Echo will be ordered on an urgent basis, is currently a restriction on all nonurgent testing at [facility] . She was agreeable to [...] Preston BUCIO [facility] Cardiology 01/10/2020 docume nted in this [...] | | | | | | [place] [address] | | | | | | [phone] | | | | | | | | +--------+ + + + + | 06/26/ | Office | Cardiology | Roxannmiguel ángelDora | | | 2019 | Visit | | [address] | | | | | | [address] | | | | | | [place] [address] | | | | | | [phone] | | | | | | | [...] | | | | | | [place] ([id number]) on | | | | | | [...]
--- OUTSIDE RECORDS SUMMARY | ~2020-05-06 | XMS | Encounter Summary ---
Demographics + + + | Address | [address] | | | [place] [address] | + + + | Home Phone [...] [place] | | | | | [address] | | + + + + + Care Team Providers + +------+ + | Care Beef Cattle Farm Manager Name | Role | Phone [...] [place] | | | | | | [address] | | | | | | [phone] | | | +--------+ + + + [...] | | | | | [place] [address] | | | | | | [phone] | | | | | | | | +--------+ + + + + | 06/26/ | Office | Cardiology | Dora De La Torre | | | 2020 | Visit | | [address] | | | | | | [place] | | | | | | [place] [address] | | | | | | [phone] | | | | | | | | +--------+ + + + + documented as of this encounter Visit Diagnoses Not on filedocumented in this encounter"
--- OUTSIDE RECORDS SUMMARY | ~2020-05-06 | XMS | Encounter Summary ---
Demographics + + + | Address | [address] | | | [place] [address] | + + + | Home Phone [...] [place] | | | | | [address] | | + + + + + Care Team Providers + +------+ + | Care Traffic Court Referee Name | Role | Phone | + [...] | SLEEP DISORDER [address] | [address] | | | | | [place] | [place], [place] | | | | | [place] [address] | [address] | | | | | [phone] | | | +--------+ + + + [...] [place] | | | | | | [place] [address] | | | | | | [phone] | | | | | | | | +--------+ + + + + | 06/26/ | Office | Cardiology | Dora De La Torre | | | 2019 | Visit | | [address] | | | | | | [place] | | | | | | [place] [address] | | | | | | [phone] | | | | | | | | +--------+ + + + + documented as of this encounter Visit Diagnoses Not on filedocumented in this encounter"
--- OUTSIDE RECORDS SUMMARY | ~2020-05-06 | XMS | Encounter Summary ---
Demographics + + + | Address | [address] | | | [place] [address] | + + + | Home Phone [...] [place] | | | | | [address] | | + + + + + Care Team Providers + +------+ + | Care Hoe Runner Name | Role | Phone | [...] | 02/01/ | Telephone | [facility] | Frandy Teresa, | Imaging Only | | 2019 | | NEUROSURGERY [address] | DO [address] | | | | | [address] | [address] [place], [place] | | | | | [place], [place] | [id number] | | | | | [address] | | | | | | [phone] | | | +--------+ + + + [...] [place] | | | | | | [facility] [place] [address] | | | | | | [phone] | | | | | | | | +--------+ + + + + | 06/26/ | Office | Cardiology | Dora De La Torre | | | 2020 | Visit | | [address] | | | | | | [address] | | | | | | [place] [address] | | | | | | [phone] | | | | | | | | +--------+ + + + + documented as of this encounter Visit Diagnoses Not on filedocumented in this encounter"
--- OUTSIDE RECORDS SUMMARY | ~2020-05-06 | XMS | Encounter Summary ---
Demographics + + + | Address | [address] | | | [place] [address] | + + + | Home Phone [...] [place] | | | | | [address] | | + + + + + Care Team Providers + +------+ + | Care Container Finisher Name | Role | Phone | [...] + + | 08/16/ | Telephone | [facility] | Ashley Chávez | Other (Called to | | 2018 | | CARDIOLOGY [place] | Pollo, Aircraft Loadmaster Superintendent | tell patient what | | | | [address] | | Nicholas said. ) | | | | [place] [address] | | | | | | [place] | | | | | | [address] | | | | | | [phone] | | | +--------+ + + + [...] Miscellaneous Notes Telephone Encounter - Ashley Chávez, Aircraft Loadmaster Superintendent - 08/16/2019 2:57 PM PDTCall m cierra to patient to advise of Dr. Peterson's notes. Patient stated understanding. JKASSIE:FOUNTAIN DISPENSER-AAMA el ephone Encounter - Ashley Chávez Aircraft Loadmaster Superintendent - 08/16/2019 2:56 PM PDT----- Mess [...] Thanks. ----- Message ----- From: Lesa Ochoa, Aircraft Loadmaster Superintendent Sent: 08/13/2019 13:31 To: Desiree Peterson [...] [address] | | | | | | [place] [address] | | | | | | [phone] | | | | | | | | +--------+ + + + + | 06/26/ | Office | Cardiology | Dora De La Torre | | | 2019 | Visit | | [address] | | | | | | [address] | | | | | | [place] [address] | | | | | | [phone] | | | | | | | | +--------+ + + + + documented as of this encounter Visit Diagnoses Not on filedocumented in this encounter"
--- OUTSIDE RECORDS SUMMARY | ~2020-05-06 | XMS | Encounter Summary ---
Demographics + + + | Address | [address] | | | [place] [address] | + + + | Home Phone [...] [place], [place] | | | | | [address] | | + + + + + Care Team Providers + +------+ + | Care Director Medical Economics Name | Role | Phone | + +------+ + PCP | Unavailable | + +------+ + Encounter Details +--------+ + + + + | Date | Type | Department | Care Team | Description | +--------+ + + + + | 03/11/ | [facility] | [facility] | Deon Gonzales | | | 2004 | Encounter | MED CTR SLEEP | MD Laure[address] | | | | | [address] | [address] [facility] | | | | | [place], [place] | [place] [address] | | | | | [address] | [phone] | | | | | [phone] | | | +--------+ + + + [...] | | | | | [place] [address] | | | | | | [phone] | | | | | | | | +--------+ + + + + | 06/26/ | Office | Cardiology | Dora De La Torre | | | 2019 | Visit | | [address] | | | | | | [address] | | | | | | [place] [address] | | | | | | [phone] | | | | | | | | +--------+ + + + + documented as of this encounter Visit Diagnoses Not on filedocumented in this encounter"
--- OUTSIDE RECORDS SUMMARY | ~2020-05-06 | XMS | Encounter Summary ---
Demographics + + + | Address | [address] | | | [place] [address] | + + + | Home Phone [...] [place] | | | | | [address] | | + + + + + Care Team Providers + +------+ + | Care Decaler Name | Role | Phone | + +------+ + | Natalee Andersen NP | PCP | | + +------+ + Encounter Details +--------+ + + + + | Date | Type | Department | Care Team | Description | +--------+ + + + + | 07/25/ | Hospital | [facility] | Frandy Teresa, | Status post lumbar | | 2014 | Encounter | MED CTR XRAY [address] | DO [address] | spinal fusion | | | | [place] | [address] [place], [place] | | | | | [place] [address] | [address] | | | | | [phone] | | | +--------+ + + + [...] + + + +---------+ + + | Hurley-3 Fatty | Take 1,000 mg by | [...] | | | | | [place] [address] | | | | | | [phone] | | | | | | | | +--------+ + + + + | 06/26/ | Office | Cardiology | Dora De La Torre | | | 2020 | Visit | | [address] | | | | | | [place] | | | | | | [place] [address] | | | | | | [phone] | | | | | | | [...] + | MISCELLANEOUS LAB | | | [phone] | + +---------+ + + | MISCELANIOUS LAB | | | [phone] | + +---------+ + + documented in this encounter Visit Diagnoses + + | Diagnosis | + + | Status post lumbar spinal fusion Arthrodesis status | + + documented in this encounter"
--- OUTSIDE RECORDS SUMMARY | ~2020-05-06 | XMS | Encounter Summary ---
Demographics + + + | Address | [address] | | | [place] [address] | + + + | Home Phone [...] [place], [place] | | | | | [address] | | + + + + + Care Team Providers + +------+ + | Care Verifier Name | Role | Phone | + +------+ + PCP | Unavailable | + +------+ + Encounter Details +--------+ + + + + | Date | Type | Department | Care Team | Description | +--------+ + + + + | 08/21/ | Hospital | [facility] | | | | 1996 | Encounter | MED CTR LABORATORY | | | | | | [address] | | | | | | [place] | | | | | | [address] | | | | | | [phone] | | | +--------+ + + + [...] | | | | | [place] [address] | | | | | | [phone] | | | | | | | | +--------+ + + + + | 06/26/ | Office | Cardiology | Dora De La Torre | | | 2020 | Visit | | [address] | | | | | | [address] | | | | | | [place] [address] | | | | | | [phone] | | | | | | | | +--------+ + + + + documented as of this encounter Visit Diagnoses Not on filedocumented in this encounter"
--- OUTSIDE RECORDS SUMMARY | ~2020-05-06 | XMS | Encounter Summary ---
Demographics + + + | Address | [address] | | | [place] [address] | + + + | Home Phone [...] [place] | | | | | [address] | | + + + + + [...] Rd | | | | | | [place], [place] | | | | | | [address] | | | +--------+ + + + [...]
--- OUTSIDE RECORDS SUMMARY | ~2020-05-06 | XMS | Encounter Summary ---
Demographics + + + | Address | [address] | | | [place] [address] | + + + | Home Phone [...] [place] | | | | | [address] | | + + + + + [...] + + | 05/02/ | Hospital | [facility] | Frandy Teresa, | Back pain | | 2014 | Encounter | MED CTR XRAY [address] | DO [address] | | | | | [place] | [address] [place] | | | | | [place] [address] | [address] | | | | | [phone] | | | +--------+ + + + [...] | | | | | [place] [address] | | | | | | [phone] | | | | | | | | +--------+ + + + + | 06/26/ | Office | Cardiology | Dora De La Torre | | | 2019 | Visit | | [address] | | | | | | [address] | | | | | | [place] [address] | | | | | | [phone] | | | | | | | [...] + | MISCELLANEOUS LAB | | | [phone] | + +---------+ + + | MISCELANIOUS LAB | | | [phone] | + +---------+ + + documented in this encounter Visit Diagnoses + + | Diagnosis | + + | Back pain Backache, unspecified | + + documented in this encounter"
--- OUTSIDE RECORDS SUMMARY | ~2020-05-06 | XMS | Encounter Summary ---
Demographics + + + | Address | [address] | | | [place] [address] | + + + | Home Phone [...] [place] | | | | | [address] | | + + + + + Care Team Providers + +------+ + | Care Desizing Pad Operator Name | Role | Phone | + +------+ + | Basim Bolanos MD | PCP | | + +------+ + Encounter Details +--------+ + + + + | Date | Type | Department | Care Team | Description | +--------+ + + + + | 04/18/ | Abstract | [facility] [place] | [facility], | | | 2012 | | GASTROENTEROLOGY | FORTUNATO Thomas [address] | | | | | [address] | [address] | | | | | [address] [place], [place] | [place], [place] | | | | | [address] | [address] | | | | | [phone] | | | +--------+ + + + [...] | | | | | [place] [address] | | | | | | [phone] | | | | | | | | +--------+ + + + + | 06/26/ | Office | Cardiology | Dora De La Torre | | | 2020 | Visit | | [address] | | | | | | [address] | | | | | | [place] [address] | | | | | | [phone] | | | | | | | | +--------+ + + + + documented as of this encounter Visit Diagnoses Not on filedocumented in this encounter"
--- OUTSIDE RECORDS SUMMARY | ~2020-05-06 | XMS | Encounter Summary ---
Demographics + + + | Address | [address] | | | [place] [address] | + + + | Home Phone [...] [place], [place] | | | | | [address] | | + + + + + Care Team Providers + +------+ + | Care Welder/Fabricator Name | Role | Phone | + +------+ + PCP | Unavailable | + +------+ + Encounter Details +--------+ + + + + | Date | Type | Department | Care Team | Description | +--------+ + + + + | 01/16/ | Hospital | [facility] | | | | 2002 | Encounter | MED CTR XRAY [address] | | | | | | [address] | | | | | | [place] [address] | | | | | | [phone] | | | +--------+ + + + [...] | | | | | [place] [id number] | | | | | | [phone] | | | | | | | | +--------+ + + + + | 06/26/ | Office | Cardiology | Dora De La Torre | | | 2019 | Visit | | [address] | | | | | | [address] | | | | | | [place] [address] | | | | | | [phone] | | | | | | | | +--------+ + + + + documented as of this encounter Visit Diagnoses Not on filedocumented in this encounter"
--- OUTSIDE RECORDS SUMMARY | ~2020-05-06 | XMS | Encounter Summary ---
Demographics + + + | Address | [address] | | | [place] [address] | + + + | Home Phone [...] [place] | | | | | [address] | | + + + + + [...] + + | 09/10/ | Documentati | [facility] | Katharine Moncada, | Other (urgent | | 2019 | on | CARDIOLOGY [place] | Technologist | report) | | | | [address] | | | | | | [place] | | | | | | [address] | | | | | | [phone] | | | +--------+ + + + [...] | | | | | [place] [address] | | | | | | [phone] | | | | | | | | +--------+ + + + + | 06/26/ | Office | Cardiology | Dora De La Torre | | | 2020 | Visit | | [address] | | | | | | [address] | | | | | | [place] [address] | | | | | | [phone] | | | | | | | | +--------+ + + + + documented as of this encounter Visit Diagnoses Not on filedocumented in this encounter"
--- OUTSIDE RECORDS SUMMARY | ~2020-05-06 | XMS | Encounter Summary ---
Demographics + + + | Address | [address] | | | [place] [address] | + + + | Home Phone [...] [place] | | | | | [address] | | + + + + + Care Team Providers + +------+ + | Care Coat Joiner Lockstitch Name | Role | Phone | [...] + + | 07/10/ | Telephone | [facility] | Frandy Teresa, | Imaging Only (1 year | | 2014 | | NEUROSURGERY [address] | DO [address] | x-ray ) | | | | [address] | [address] [place], [place] | | | | | [place], [place] | [address] | | | | | [address] | | | | | | [phone] | | | +--------+ + + + [...] [address] | | | | | | [place] [address] | | | | | | [phone] | | | | | | | | +--------+ + + + + | 06/26/ | Office | Cardiology | Dora De La Torre | | | 2019 | Visit | | [address] | | | | | | [address] | | | | | | [place] [address] | | | | | | [phone] | | | | | | | | +--------+ + + + + documented as of this encounter Visit Diagnoses Not on filedocumented in this encounter"
--- OUTSIDE RECORDS SUMMARY | ~2020-05-06 | XMS | Encounter Summary ---
Demographics + + + | Address | [address] | | | [place] [address] | + + + | Home Phone [...] [place] | | | | | [address] | | + + + + + [...] | 09/26/ | Refill | [facility] [address] [facility] | Frandy Teresa, | Medication Refill | | 2013 | | NEUROSURGERY [address] | DO [address] | | | | | [facility] | [address] [place], [place] | | | | | [place], [place] | [id number] | | | | | [address] | | | | | | [phone] | | | +--------+--------+ + + + [...] will come today. [facility] Megan Schreiber RN at 09/26/2014 [...] [address] | | | | | | [place] [address] | | | | | | [phone] | | | | | | | | +--------+ + + + + | 06/26/ | Office | Cardiology | Dora De La Torre | | | 2019 | Visit | | [address] | | | | | | [address] | | | | | | [place] [address] | | | | | | [phone] | | | | | | | | +--------+ + + + + documented as of this encounter Visit Diagnoses Not on filedocumented in this encounter"
--- OUTSIDE RECORDS SUMMARY | ~2020-05-06 | XMS | Encounter Summary ---
Demographics + + + | Address | [address] | | | [place] [address] | + + + | Home Phone [...] [place] | | | | | [address] | | + + + + + Care Team Providers + +------+ + | Care Home Advisor Name | Role | Phone | [...] Closed | | Radiology | Diagnoses | [place], | | | | | | Thoracic or | Natalee L, | | | | | | lumbosacral | INVENTORY AUDIT CLERK [address] | | | | | | neuritis or | [address] | | | | | | | [address] | | | | | | radiculitis, | [place], | | | | | | unspecified | [place] [address] | | | | | | | Phone: | | | | | | Degeneration | [phone] | | | | | | of lumbar | Fax: | | | | | | or | [phone] | | | | | | lumbosacral [...] + + | 03/11/ | Hospital | [facility] | Natalee Andersen | Thoracic or | | 2013 | Encounter | MED CTR MRI [address] | L, INVENTORY AUDIT CLERK [address] | lumbosacral neuritis | | | | [place], | [address] | or radiculitis, | | | | [place] [address] | [place] [address] | unspecified; | | | | [phone] | [phone] | Degeneration of | | | | [...] + + + +---------+ + + | [place]-3 Fatty | Take 1,000 mg by | [...] [address] | | | | | | [place] [address] | | | | | | [phone] | | | | | | | | +--------+ + + + + | 06/26/ | Office | Cardiology | Dora De La Torre | | | 2019 | Visit | | [address] | | | | | | [address] | | | | | | [place] [address] | | | | | | [phone] | | | | | | | [...] + | MISCELLANEOUS LAB | | | [phone] | + +---------+ + + | MISCELANIOUS LAB | | | [phone] | + +---------+ + + documented in this encounter Visit Diagnoses + + | Diagnosis | + + | Thoracic or lumbosacral neuritis or radiculitis, unspecified | + + | Degeneration of lumbar or lumbosacral intervertebral disc | + + documented in this encounter"
--- OUTSIDE RECORDS SUMMARY | ~2020-05-06 | XMS | Encounter Summary ---
Demographics + + + | Address | [address] | | | [place] [address] | + + + | Home Phone [...] Author | [facility] | | [...] [place] | | | | | [address] | | + + + + + Care Team Providers + +------+ + | Care Orthopaedic Doctor Name | Role | Phone | [...] + + | 07/30/ | Telephone | [facility] | Ashley Chávez | Other (Patient | | 2019 | | CARDIOLOGY [place], Textile Dyer | mariela ) | | | | [address] | | | | | | [facility] [place] | | | | | | [address] | | | | | | [phone] | | | +--------+ + + + [...] Miscellaneous Notes Telephone Encounter - Ashley Chávez Textile Dyer - 07/30/2019 1:40 PM Shila norton to patient to advise of Dr. Peterson's notes. Patient stated understanding. BRODY:MANGO. el ephone Encounter - Ashley Cháevz, Textile Dyer - 07/30/2019 1:40 PM PDT----- Mess age [...] Thanks ----- Message ----- From: Ashley Chávez Textile Dyer Sent: 07/30/2019 11:47 To: Desiree Peterson DO [...] [address] | | | | | | [place] [address] | | | | | | [phone] | | | | | | | | +--------+ + + + + | 06/26/ | Office | Cardiology | Dora De La Torre | | | 2019 | Visit | | [address] | | | | | | [address] | | | | | | [place] [address] | | | | | | [phone] | | | | | | | | +--------+ + + + + documented as of this encounter Visit Diagnoses Not on filedocumented in this encounter"
--- OUTSIDE RECORDS SUMMARY | ~2020-05-06 | XMS | Encounter Summary ---
Demographics + + + | Address | [address] | | | [place] [address] | + + + | Home Phone [...] [place], [place] | | | | | [address] | | + + + + + Care Team Providers + +------+ + | Care Director Mba Name | Role | Phone | + +------+ + PCP | Unavailable | + +------+ + Encounter Details +--------+ + + + + | Date | Type | Department | Care Team | Description | +--------+ + + + + | 02/22/ | Hospital | [facility] | | | | 1996 | Encounter | MED CTR EMERGENCY | | | | | | [address] | | | | | | [place] | | | | | | [address] | | | | | | [phone] | | | +--------+ + + + [...] | | | | | [place] [address] | | | | | | [phone] | | | | | | | | +--------+ + + + + | 06/26/ | Office | Cardiology | Dora De La Torre | | | 2020 | Visit | | [address] | | | | | | [address] | | | | | | [place] [address] | | | | | | [phone] | | | | | | | | +--------+ + + + + documented as of this encounter Visit Diagnoses Not on filedocumented in this encounter"
--- OUTSIDE RECORDS SUMMARY | ~2020-05-06 | XMS | Encounter Summary ---
Demographics + + + | Address | [address] | | | [place] [address] | + + + | Home Phone [...] [place], [place] | | | | | [address] | | + + + + + Care Team Providers + +------+ + | Care Blender / Cook Name | Role | Phone | + +------+ + PCP | Unavailable | + +------+ + Encounter Details +--------+ + + + + | Date | Type | Department | Care Team | Description | +--------+ + + + + | 06/30/ | Hospital | [facility] | | | | 1999 - | Encounter | MED CTR GENERIC PSY | | | | | | CONV DEPT [address] | | | | 07/05/ | | [address], | | | | 1999 | | [place] [address] | | | | | | [phone] | | | +--------+ + + + [...] [address] | | | | | | [place] [address] | | | | | | [phone] | | | | | | | | +--------+ + + + + | 06/26/ | Office | Cardiology | Dora De La Torre | | | 2019 | Visit | | [address] | | | | | | [address] | | | | | | [place] [address] | | | | | | [phone] | | | | | | | | +--------+ + + + + documented as of this encounter Visit Diagnoses Not on filedocumented in this encounter"
--- OUTSIDE RECORDS SUMMARY | ~2020-05-06 | XMS | Encounter Summary ---
Demographics + + + | Address | [address] | | | [place] [address] | + + + | Home Phone [...] [place] | | | | | [address] | | + + + + + Care Team Providers + +------+ + | Care Waste Water Plant Operator Name | Role | [...] + + | 08/22/ | Documentati | [facility] | Katharine Moncada, | Other (urgent | | 2019 | on | CARDIOLOGY [place] | Technologist | report) | | | | [address] | | | | | | [place] | | | | | | [address] | | | | | | [phone] | | | +--------+ + + + [...] | | | | | [place] [address] | | | | | | [phone] | | | | | | | | +--------+ + + + + | 06/26/ | Office | Cardiology | Dora De La Torre | | | 2020 | Visit | | [address] | | | | | | [address] | | | | | | [place] [address] | | | | | | [phone] | | | | | | | | +--------+ + + + + documented as of this encounter Visit Diagnoses Not on filedocumented in this encounter"
--- OUTSIDE RECORDS SUMMARY | ~2020-05-06 | XMS | Encounter Summary ---
Demographics + + + | Address | [address] | | | [place] [address] | + + + | Home Phone [...] [place] | | | | | [address] | | + + + + + Care Team Providers + +------+ + | Care Certified Retinal Angiographer Name | Role | Phone | [...] | | | | | | | [address] | | | | | | | Phone: | | | | | | | [phone] | | | | | | | Fax: | | | | | | | [phone] | | +--------+ + + + + + Reason for Visit + + + | Reason | Comments | + + + | Follow-up | 3 mo po | + + + Encounter Details +--------+---------+ + + + | Date | Type | Department | Care Team | Description | +--------+---------+ + + + | 09/27/ | Office | [facility] | Frandy Teresa, | Lumbar spondylosis | | 2013 | Visit | NEUR[address]URGERY [address] | DO [address] | (Primary Dx); S/P | | | | [address] | [address] [place], [place] | lumbar fusion | | | | [place], [place] | [address] | | | | | [address] | | | | | | [phone] | | | +--------+---------+ + + + [...] [facility] [place] [place], [address] [place] [address] FAX: NEUROSURGERY FOLLOW-UP CHIEF COMPLAINT: Chief Complaint [...] Location: [facility] MAIN OR CURRENT MEDICATIONS: Current Outpatient [...] Take 15 mg by mouth nightl y. Calpine-3 Fatty Acids (FISH OIL CONCENTRATE) 1000 MG [...] encounter Miscellaneous Notes Miscellaneous - ON[facility]CE [facility] - 09/27/2014 12:00 AM PST documented [...] | | | | | [place] [address] | | | | | | [phone] | | | | | | | | +--------+ + + + + | 06/26/ | Office | Cardiology | Dora De La Torre | | | 2019 | Visit | | [address] | | | | | | [address] | | | | | | [place] [address] | | | | | | [phone] | | | | | | | [...]
--- OUTSIDE RECORDS SUMMARY | ~2020-05-06 | XMS | Encounter Summary ---
Demographics + + + | Address | [address] | | | [place] [address] | + + + | Home Phone [...] [place] | | | | | [address] | | + + + + + [...] | 2018 | | CARDIOLOGY [place] Abad, Quill Machine Tender | calling to be seen | | | | [address] | | mirella. ) | | | | [place] | | | | | | [address] | | | | | | [phone] | | | +--------+ + + + [...] Miscellaneous Notes Telephone Encounter - Ashley Chávez Quill Machine Tender - 09/19/2019 10:41 AM PSTCall m cierra to patient to advise of Dr. Peterson's notes. Patient stated understanding. Patient asked why she couldn't be seen sooner, and I reminded her that we offered her a monae ner appointment that she turned down. Patient said thank you and hung up. CLAYTONW:MANGO. el ephone Encounter - Ashley Chávez Quill Machine Tender - 09/19/2019 10:40 AM PST Dora De La Torre, CAROLINE Peterson DO; Ashley Chávez Quill Machine Tender So just an FYI: we offered her appointment today at 3 pm but she turned it down, and said she would keep scheduled appt. el ephone Encounter - Ashley Chávez Quill Machine Tender - 09/19/2019 10:38 AM PST----- Mess age [...] she needs to be seen by a doctor of naturopathic medicine. I have asked Lizeth to call her [...] help her pulse? Please advise. Thank you! [facility] rocky in this encounter Plan [...] [address] | | | | | | [place] [address] | | | | | | [phone] | | | | | | | | +--------+ + + + + | 06/26/ | Office | Cardiology | Dora De La Torre | | | 2020 | Visit | | [address] | | | | | | [address] | | | | | | [place] [address] | | | | | | [phone] | | | | | | | | +--------+ + + + + documented as of this encounter Visit Diagnoses Not on filedocumented in this encounter"
--- OUTSIDE RECORDS SUMMARY | ~2020-05-06 | XMS | Encounter Summary ---
Demographics + + + | Address | [address] | | | [place] [address] | + + + | Home Phone [...] [place] | | | | | [address] | | + + + + + Care Team Providers + +------+ + | Care Heat Treater Name | Role | Phone | [...] [address] | [address] [place], [place] | Anxiety; Anemia; | | | | [place] | [address] | Irregular heartbeat; | | | | [address] | | Depression; | | | | [phone] | | Migraine; | | | | [...] | | | | | [place] [address] | | | | | | [phone] | | | | | | | | +--------+ + + + + | 06/26/ | Office | Cardiology | Dora De La Torre | | | 2019 | Visit | | [address] | | | | | | [address] | | | | | | [place] [address] | | | | | | [phone] | | | | | | | [...]
--- OUTSIDE RECORDS SUMMARY | ~2020-05-06 | XMS | Encounter Summary ---
Demographics + + + | Address | [address] | | | [place] [address] | + + + | Home Phone [...] [place], [place] | | | | | [address] | | + + + + + Care Team Providers + +------+ + | Care Stull Installer Name | Role | Phone | + +------+ + PCP | Unavailable | + +------+ + Encounter Details +--------+ + + + + | Date | Type | Department | Care Team | Description | +--------+ + + + + | 02/28/ | Hospital | [facility] | Deon Gonzales | | | 2012 | Encounter | MED CTR SLEEP | MD [address] | | | | | [address] | [place] [facility] | | | | | [place], [place] | [place] [address] | | | | | [address] | [phone] | | | | | [phone] | | | +--------+ + + + [...] 2:36 PM PDTDATE: 02/29/2012 cc: [facility] Sleep Center Deon Gonzales Jr., MD, [facility] POSITIVE PRESSURE TITRATION STUDY CLINICAL INFORMATION: [...] the patient scored 18 points on the [place] Sleepiness Scale, which endorses a severe [...] advised. Deon Gonzales Jr., MD, FAASM Diplomate [place] Board of Internal Medicine Diplomate in Sleep Medicine Office Systems Technology Instructor, [facility] Clinical Billet Bed Operator Katelin joy [facility], [facility] JOB #: [id number] EXT JOB #:[id number] EDITED: 03/03/2012 07:26 <Electronically Signed by Deon [...] | | | | | [place] [address] | | | | | | [phone] | | | | | | | | +--------+ + + + + | 06/26/ | Office | Cardiology | StefanielarryDora | | | 2019 | Visit | | [address] | | | | | | [address] | | | | | | [place] [address] | | | | | | [phone] | | | | | | | | +--------+ + + + + documented as of this encounter Visit Diagnoses Not on filedocumented in this encounter"
--- OUTSIDE RECORDS SUMMARY | ~2020-05-06 | XMS | Encounter Summary ---
Demographics + + + | Address | [address] | | | [place] [address] | + + + | Home Phone [...] [place] | | | | | [address] | | + + + + + Care Team Providers + +------+ + | Care Pmo Business Analyst Name | Role | Phone | + +------+ + | Adriano Patrick MD | PCP | | + +------+ + Encounter Details +--------+ + + + + | Date | Type | Department | Care Team | Description | +--------+ + + + + | 05/16/ | Orders Only | [facility] | Provider, | | | 2018 | | SYSTEM GENERIC OP | MD [address] | | | | | [address] | [address] | | | | | [address] [place], [place] | [place] [address] | | | | | [address] | | | | | | [phone] | | | +--------+ + + + [...] | | | | | [place] [address] | | | | | | [phone] | | | | | | | | +--------+ + + + + | 06/26/ | Office | Cardiology | Dora De La Torre | | | 2020 | Visit | | [address] | | | | | | [address] | | | | | | [place] [address] | | | | | | [phone] | | | | | | | | +--------+ + + + + documented as of this encounter Visit Diagnoses Not on filedocumented in this encounter"
--- OUTSIDE RECORDS SUMMARY | ~2020-05-06 | XMS | Encounter Summary ---
Demographics + + + | Address | [address] [facility] [address] | | | [place] [address] | + + + | Home Phone [...] + + + | Author | [facility] | + + + | Organization | [facility] | + + + | Address | Unknown | + + + | Phone | Unavailable | + + + Support + + + + + | Name | Relationship | Address | Phone | + + + + + | Kelsy Bautista | ECON | [address] | | | | | [place] | | | | | [address] | | + + + + + Care Team Providers + +------+ + | Care Brim Presser Name | Role | Phone | [...] [id number] | | | | | | [place], [place] | | | | | | [address] | | | | | | [phone] | | | +--------+ + + + [...] | + + + + + | [facility] | [address] | [place] [address] | | | PATHOLOGY | [address] [...] Re | | | | | | [phone] | | | | + + + + + + + + | Specimen | + + | | + + + + + + + | Performing | Address | City/State/Zipcode | Phone Number | | Organization | | | | + + + + + | [facility] | [address] | [place] [address] | | | PATHOLOGY | [address] [...] Re | | | | | | [phone] | | | | + + + + + + + + | Specimen | + + | | + + + + + + + | Performing | Address | City/State/Zipcode | Phone Number | | Organization | | | | + + + + + | [facility] | [address] | [place] [address] | | | PATHOLOGY | [address] [...] Re | | | | | | [phone] | | | | + + + + + + + + | Specimen | + + | | + + + + + + + | Performing | Address | City/State/Zipcode | Phone Number | | Organization | | | | + + + + + | [facility] | [address] | [place] [address] | | | PATHOLOGY | [address] [...] Re | | | | | | [phone] | | | | + + + + + + + + | Specimen | + + | | + + + + + + + | Performing | Address | City/State/Zipcode | Phone Number | | Organization | | | | + + + + + | [facility] | [address] | [place] [address] | | | PATHOLOGY | [address] | | | + + + + + documented in this encounter Visit Diagnoses Not on filedocumented in this encounter"
--- OUTSIDE RECORDS SUMMARY | ~2020-05-06 | XMS | Encounter Summary ---
Demographics + + + | Address | [address] | | | [place] [address] | + + + | Home Phone [...] [place] | | | | | [address] | | + + + + + Care Team Providers + +------+ + | Care Operations Research Manager Name | Role | Phone | [...] [place] | | | | | | [address] | | | | | | [phone] | | | +--------+ + + + [...] | | | | | [place] [address] | | | | | | [phone] | | | | | | | | +--------+ + + + + | 06/26/ | Office | Cardiology | Dora De La Torre | | | 2020 | Visit | | [address] | | | | | | [address] | | | | | | [place] [address] | | | | | | [phone] | | | | | | | | +--------+ + + + + documented as of this encounter Visit Diagnoses Not on filedocumented in this encounter"
--- OUTSIDE RECORDS SUMMARY | ~2020-05-06 | XMS | Encounter Summary ---
Demographics + + + | Address | [address] | | | [place] [address] | + + + | Home Phone [...] [place] | | | | | [address] | | + + + + + Care Team Providers + +------+ + | Care Pick Up Operator Name | Role | Phone [...] + | 08/21/ | Documentati | [facility] | Katharine Moncada, | Other (urgent | | 2019 | on | CARDIOLOGY [place] | Technologist | report) | | | | [address] | | | | | | [place] | | | | | | [address] | | | | | | [phone] | | | +--------+ + + + [...] | | | | | [place] [address] | | | | | | [phone] | | | | | | | | +--------+ + + + + | 06/26/ | Office | Cardiology | Dora De La Torre | | | 2020 | Visit | | [address] | | | | | | [address] | | | | | | [place] [address] | | | | | | [phone] | | | | | | | | +--------+ + + + + documented as of this encounter Visit Diagnoses Not on filedocumented in this encounter"
--- OUTSIDE RECORDS SUMMARY | ~2020-05-06 | XMS | Encounter Summary ---
Demographics + + + | Address | [address] | | | [place] [address] | + + + | Home Phone [...] [place] | | | | | [address] | | + + + + + Care Team Providers + +------+ + | Care Finished Goods Stock Clerk Name | Role | Phone [...] + + | 02/27/ | Telephone | [facility] | Katharine Cardona PA-C | Appointment (New | | 2014 | | MEDICINE [address] | [address] [place] [address] | Patient) | | | | [place], | [place] [address] | | | | | [place] [address] | [phone] | | | | | [phone] | | | +--------+ + + + [...] patients. Those patients are re ferred to [facility]. Cindy stated that would be fine with her. She stated she is 7 months post-back surgery per Dr. Teresa and only uses the hydrocodone and oxycodone occ asionally. She said she is trying to get off the oxycodone completely. Cindy said she saw Dr. Newman this morning to address her myositis issues. She agreed to referral to [facility]. Appointment scheduled for 03-06-15 with Katharine DEGROOT. [...] [address] | | | | | | [place] [address] | | | | | | [phone] | | | | | | | | +--------+ + + + + | 06/26/ | Office | Cardiology | Dora De La Torre | | | 2019 | Visit | | [address] | | | | | | [address] | | | | | | [place] [address] | | | | | | [phone] | | | | | | | | +--------+ + + + + documented as of this encounter Visit Diagnoses Not on filedocumented in this encounter"
--- OUTSIDE RECORDS SUMMARY | ~2020-05-06 | XMS | Encounter Summary ---
Demographics + + + | Address | [address] | | | [place] [address] | + + + | Home Phone [...] [place] | | | | | [address] | | + + + + + Care Team Providers + +------+ + | Care Welding Engineer Name | Role | Phone | [...] | Office | [facility] | Deon Gonzales | ROGERS (obstructive | | 2012 | Visit | SLEEP DISORDER [address] | MD [address] | sleep apnea) | | | | [address] [place] | [address] [place] | (Primary Dx); | | | | [place] [address] | [place] [address] | Sleepiness | | | | [phone] | [phone] | | | | | | | [...] differen t from the original. 03/06/13 1000 [place] Sleepiness Scale Sitting and reading 3 Watching [...] by mouth Daily., Disp: , Rfl: ; [place]-3 Fatty Acids (FISH OIL CONCENTRATE) 1000 MG [...] th is encounter Miscellaneous Notes M[facility] - 03/06/2013 12:00 AM PDT iscellaneous - [facility] - 03/06/2013 12:00 AM PDTEle [...] | | | | | [place] [address] | | | | | | [phone] | | | | | | | | +--------+ + + + + | 06/26/ | Office | Cardiology | Dora De La Torre | | | 2019 | Visit | | [address] | | | | | | [address] | | | | | | [place] [address] | | | | | | [phone] | | | | | | | | +--------+ + + + + documented as of this encounter Visit Diagnoses + + | Diagnosis | + + | ROGERS (obstructive sleep apnea) - Primary Obstructive sleep apnea (adult) (pediatric) | + + | Sleepiness Other alteration of consciousness | + + documented in this encounter"
--- OUTSIDE RECORDS SUMMARY | ~2020-05-06 | XMS | Encounter Summary ---
Demographics + + + | Address | [address] | | | [place] [address] | + + + | Home Phone [...] [place] | | | | | [address] | | + + + + + Care Team Providers + +------+ + | Care Cullet Crusher Name | Role | Phone | [...] + + | 10/22/ | Telephone | [facility] | Susu Peralta, | Other | | 2019 | | CARDIOLOGY [place] Nath RN | | | | | [address] | | | | | | [place], [place] | | | | | | [address] | | | | | | [phone] | | | +--------+ + + + [...] | | | | | [place] [address] | | | | | | [phone] | | | | | | | | +--------+ + + + + | 06/26/ | Office | Cardiology | Dora De La Torre | | | 2019 | Visit | | [address] | | | | | | [address] | | | | | | [place] [address] | | | | | | [phone] | | | | | | | | +--------+ + + + + documented as of this encounter Visit Diagnoses Not on filedocumented in this encounter"
--- OUTSIDE RECORDS SUMMARY | ~2020-05-06 | XMS | Encounter Summary ---
Demographics + + + | Address | [address] [facility] [address] | | | [place] [address] | + + + | Home Phone [...] Author + + + | Author | [facility] | + + + | Organization | [facility] | + + + | Address | Unknown | + + + | Phone | Unavailable | + + + Support + + + + + | Name | Relationship | Address | Phone | + + + + + | Kelsy Bautista | ECON | [address] | | | | | [place] | | | | | [address] | | + + + + + Care Team Providers + +------+ + | Care Passenger Barge Master Name | Role | Phone | [...] Clinic | | | | | | [facility], [address] | | | | | | [place], [place] | | | | | | [address] | | | | | | [phone] | | | +--------+ + + + [...] as of this encounter Progress Notes Interface, Visual C Developer In - 12/11/2006 5:03 AM [facility] [...]
--- OUTSIDE RECORDS SUMMARY | ~2020-05-06 | XMS | Encounter Summary ---
Demographics + + + | Address | [address] | | | [place] [address] | + + + | Home Phone [...] [place], [place] | | | | | [address] | | + + + + + Care Team Providers + +------+ + | Care Hi Teacher Name | Role | Phone | + +------+ + PCP | Unavailable | + +------+ + Encounter Details +--------+ + + + + | Date | Type | Department | Care Team | Description | +--------+ + + + + | 06/17/ | Hospital | [facility] | | | | 1991 - | Encounter | MED CTR GENERIC PSY | | | | | | CONV DEPT [address] | | | | 06/18/ | | [place], | | | | 1991 | | [place] [address] | | | | | | [phone] | | | +--------+ + + + [...] [address] | | | | | | [place] [address] | | | | | | [phone] | | | | | | | | +--------+ + + + + | 06/26/ | Office | Cardiology | Dora De La Torre | | | 2019 | Visit | | [address] | | | | | | [address] | | | | | | [place] [address] | | | | | | [phone] | | | | | | | | +--------+ + + + + documented as of this encounter Visit Diagnoses Not on filedocumented in this encounter"
--- OUTSIDE RECORDS SUMMARY | ~2020-05-06 | XMS | Clinical Summary ---
Demographics + + + | Address | [address] [facility] [address] | | | [place] [address] | + + + | Home Phone [...] [place] | | | | | [address] | | + + + + + Care Team Providers + +------+ + | Care Geometry Professor Name | Role | Phone | + +------+ + PCP | Unavailable | + +------+ + Source Comments EDWARD is fully live on both [facility] and [facility] InPatient.[facility] Allergies Not on File Medications [...] | MEDICA | xxxxxxxxxx | 02/22/20 | [phone] | [address] | Medica | | | RE A & | | 15-Pre | 1 | [address] | re | | | B | | sent | | [place] | | | | | | | | [address] | | + +--------+ +--------+ + +--------+ + +--------+ +--------+ + + | Guarantor Name | Accoun | Relation to | Date | Phone | Billing Address | | | t Type | Patient | of | | | | | | | | | | + +--------+ +--------+ + + | CINDY ARNDT | Person | Self | [birth year] | [address] | | | al/Fam | | 1955 | [phone] | [address] [place] | | | devonte | | | 5 (Home) | [address] | + +--------+ +--------+ + +"
--- OUTSIDE RECORDS SUMMARY | ~2020-05-06 | XMS | Encounter Summary ---
Demographics + + + | Address | [address] | | | [place] [address] | + + + | Home Phone [...] [place], [place] | | | | | [address] | | + + + + + Care Team Providers + +------+ + | Care Appeals Examiner Name | Role | Phone | + +------+ + PCP | Unavailable | + +------+ + Encounter Details +--------+ + + + + | Date | Type | Department | Care Team | Description | +--------+ + + + + | 01/26/ | Hospital | [facility] | [place], | | | 2011 | Encounter | MED CTR XRAY [address] | MD [address] | | | | | [place] | [place] | | | | | [place] [address] | [address] | | | | | [phone] | | | +--------+ + + + [...] [address] | | | | | | [place] [address] | | | | | | [phone] | | | | | | | | +--------+ + + + + | 06/26/ | Office | Cardiology | Dora De La Torre | | | 2019 | Visit | | [address] | | | | | | [address] | | | | | | [place] [address] | | | | | | [phone] | | | | | | | [...] [facility] Diagnostic [facility] Department | [place] | | [address] [facility] [place] | [facility] | | BILATERAL KNEES, THREE VIEWS: [...] Transcribed | | | Date/Time: 01/27/2012 17:18 Chief Controller Station: | | | <Electronically Signed by Willie Perry MD> 01/27/12 3984 | | + + + + + | Procedure Note | + + | Juan, Rad Conversion - 11/30/2013 5:03 PM [facility] | | Diagnostic Imaging Department [address] [place] [address] | | BILATERAL KNEES, THREE VIEWS: 01/27/2012 [...] 17:12 | |Transcribed Date/Time: 01/27/2012 17:18 | |Chief Controller Station: | |<Electronically Signed by Willie Perry MD> 01/27/122253 | + + + +---------+ + + | Performing | Address | City/State/Zipcode | Phone Number | | Organization | | | | + +---------+ + + | [place] | | | | | [facility] | | | | + +---------+ + + documented in this encounter Visit Diagnoses Not on filedocumented in this encounter"
--- OUTSIDE RECORDS SUMMARY | ~2020-05-06 | XMS | Encounter Summary ---
Demographics + + + | Address | [address] | | | [place] [address] | + + + | Home Phone [...] [place] | | | | | [address] | | + + + + + Care Team Providers + +------+ + | Care Validation Architect Name | Role | Phone | [...] | | Required | | branch | PIANO ACCOMPANIST [address] | [address] | | | | | block | [address] | [place] | | | | | Paroxysmal | [address] | [address] | | | | | A-fib ([facility]) | [place], [place] | [address] [facility] | | | | | | [address] | [place], [place] | | | | | Schizoaffect | Phone: | [phone] Phone: | | | | | chris | [phone] | [phone] | | | | | disorder, | Fax: | Fax: | | | | | bipolar type | [phone] | [phone] | | | | | (HCC) | [...] + + | 04/24/ | Office | [facility] | Dora De La Torre | Left bundle branch | | 2020 | Visit | CARDIOLOGY [place] | [address] | block (Primary Dx); | | | | [address] | [address] | Paroxysmal A-fib | | | | [address] | [place] [address] | ([facility]); Mild | | | | [place], [place] | [phone] | hyperlipidemia; | | | | [address] | | Benign essential | | | | [phone] | | HTN; Poorly | | | | | | controlled type 2 | | | | | | diabetes mellitus | | | | | | ([facility]); Syncope, | | | | | [...] | | | | type ([facility]); Rapid | | | | | [...] have referred you to Dr. Osuna at [facility] , call [phone] for an appo intment next week as [...] patient of , who is her primary creel hand, and last seen by her on 08/2020. [...] also resol shelly with weight loss Her [id number] VASC score is 4 (stroke, HTN, gender) [...] She has previously seen Dr. Garland in [place], and different sleep provider in [facility] when lived over there. She previously had [...] After her syncopal episode she had notified [facility] cardiology, and Dr. Marquez, who was [...] PCP, or get a referral to an milieu therapist to get her blood sugars better controlled, [...] thirst or hunger. Psychiatric/Behavioral: Bipolar/Schizophrenia. Tx'd by [facility] Vaccines: Current on flu vaccine: 2019 Current on pneumonia vaccine:PPSV 23 05/29/2013 Habits/Social : Denies history of smoking. Denies EtOH use. Denies recreational or illici t drug use. Exercises sporadically. Lives in [place] . Outpatient Medications Prior to Visit Medication [...] [facility], [facility] Resting EKG normal sinus [...] is less well-controlled LABS Labs: 12/26/2018: ( [facility] ER)CMP: Sodium 139, potassium 4.2, chloride 99, BUN 10, creatinine 0. 7, BNP 28. CBC: WBC 7.8, hemoglobin 14.3, hematocrit 42.7, platelets 214 Labs: 09/28/2019:( [facility] ER) CBC: WBC 7.8, hemoglobin 14.9, hematocrit 43.8, platelets 221. C MP: Sodium 132, potassium 4.2, chloride 95, AST 76, ALT 76, alk phos 134 Labs: 10/11/2019:( [facility] ER) CBC: WBC 6.7, RBC 4.97, hemoglobin 15.2, hematocrit 44.7, platel ets 200. CMP: Glucose 385, BUN 7, creatinine 0.62, GFR 97, sodium 131, potassium 4.1, chlor kelby 95, albumin 4.3, total bilirubin 0.6, AST 75, ALT 73, alk phos 144. Thyroid: TSH 4.27 Labs: 10/12/2020:( [facility] ER) CBC: WBC 7, RBC 4.93, hemoglobin 14.7, hematocrit 44.1, platele ts 186 normal UA CMP: Glucose 381, BUN 6, creatinine 0.63, GFR 95, sodium 133, potassium 3.8 , chloride 97, albumin 4.3, total bili 0.6, AST 62, ALT 75, alk phos 145 thyroid: TSH 3.07 Labs: 10/20/2019:( [facility] ER) CBC: WBC 7.1, RBC 4.93, hemoglobin 15.1, hematocrit 45.2, platel ets 204. CMP: Glucose 540, BUN 8, creatinine 0.81, GFR 71, sodium 131, potassium 4.1, chlor kelby 95, albumin 4.2, total bili 0.5, AST 54, ALT 63, alk phos 123, negative screen for all d rugs except tricyclics. Thyroid: TSH 3.39. Labs: 04/20/2020: ([facility] ER). CMP: Sodium 130, potassium [...] admission and overnight teleme try stay at [facility] for syncopal episode with extremely elevated glucose levels of 404, with hemoglobin A1c of 15.2. She has problems as detailed below. As discussed in HPI, she did not have any arrhythmias [facility] and her [facility] performed the ER [...] report. I have referred her to the [facility] sleep disorders clinic for further evaluation [...] notes for continuity of care purp k[facility]2020 Laurie vivar in this [...] | | | | | [place] [address] | | | | | | [phone] | | | | | | | | +--------+ + + + + | 06/26/ | Office | Cardiology | Dora De La Torre | | 2019 | Visit | | [address] | | | | | | [address] | | | | | | [place] [address] | | | | | | [phone] | | | | | | | [...] | | | | A-fib ([facility]) | | | | | | Schizoaffective | | | | | | disorder, bipolar | | | | | | type ([facility]) Rapid | | | | | [...]
--- OUTSIDE RECORDS SUMMARY | ~2020-05-06 | XMS | Encounter Summary ---
Demographics + + + | Address | [address] | | | [place] [address] | + + + | Home Phone [...] [place] | | | | | [address] | | + + + + + Care Team Providers + +------+ + | Care Pickling Operator Name | Role | Phone | [...] [place] | | | | | | [address] | | | | | | [phone] | | | +--------+ + + + [...] | | | | | [place] [address] | | | | | | [phone] | | | | | | | | +--------+ + + + + | 06/26/ | Office | Cardiology | Dora De La Torre | | | 2020 | Visit | | [address] | | | | | | [address] | | | | | | [place] [address] | | | | | | [phone] | | | | | | | | +--------+ + + + + documented as of this encounter Visit Diagnoses Not on filedocumented in this encounter"
--- OUTSIDE RECORDS SUMMARY | ~2020-05-06 | XMS | Encounter Summary ---
Demographics + + + | Address | [address] | | | [place] [address] | + + + | Home Phone [...] [place], [place] | | | | | [address] | | + + + + + Care Team Providers + +------+ + | Care Laborer Poultry Hatchery Name | Role | Phone | + +------+ + PCP | Unavailable | + +------+ + Encounter Details +--------+ + + + + | Date | Type | Department | Care Team | Description | +--------+ + + + + | 10/29/ | Hospital | [facility] | | | | 1994 | Encounter | MED CTR LABORATORY | | | | | | [address] | | | | | | [place] | | | | | | [address] | | | | | | [phone] | | | +--------+ + + + [...] | | | | | [place] [address] | | | | | | [phone] | | | | | | | | +--------+ + + + + | 06/26/ | Office | Cardiology | Dora De La Torre | | | 2020 | Visit | | [address] | | | | | | [address] | | | | | | [place] [address] | | | | | | [phone] | | | | | | | | +--------+ + + + + documented as of this encounter Visit Diagnoses Not on filedocumented in this encounter"
--- OUTSIDE RECORDS SUMMARY | ~2020-05-06 | XMS | Encounter Summary ---
Demographics + + + | Address | [address] | | | [place] [address] | + + + | Home Phone [...] [place] | | | | | [address] | | + + + + + Care Team Providers + +------+ + | Care Commissary Officer Name | Role | Phone | + +------+ + | Hari Samson DO | PCP | | + +------+ + Encounter Details +--------+ + + + + | Date | Type | Department | Care Team | Description | +--------+ + + + + | 06/12/ | Hospital | [facility] | Frandy Teresa, | No Show | | 2014 | Encounter | MED CTR | DO [address] | | | | | ELECTRODIAGNOSTICS | [address] [place], [place] | | | | | [address] [place] | [address] | | | | | [place] [address] | | | | | | [phone] | | | +--------+ + + + [...] | | | | | [place] [address] | | | | | | [phone] | | | | | | | | +--------+ + + + + | 06/26/ | Office | Cardiology | Dora De La Torre | | | 2020 | Visit | | [address] | | | | | | [address] | | | | | | [place] [address] | | | | | | [phone] | | | | | | | | +--------+ + + + + documented as of this encounter Visit Diagnoses Not on filedocumented in this encounter"
--- OUTSIDE RECORDS SUMMARY | ~2020-05-06 | XMS | Encounter Summary ---
Demographics + + + | Address | [address] | | | [place] [address] | + + + | Home Phone [...] [place], [place] | | | | | [address] | | + + + + + Care Team Providers + +------+ + | Care Refinery Pipeline Operator Name | Role | Phone | + +------+ + PCP | Unavailable | + +------+ + Encounter Details +--------+ + + + + | Date | Type | Department | Care Team | Description | +--------+ + + + + | 05/23/ | Hospital | [facility] | | | | 1991 | Encounter | MED CTR XRAY [address] | | | | | | [address] | | | | | | [place] [address] | | | | | | [phone] | | | +--------+ + + + [...] | | | | | [place] [address] | | | | | | [phone] | | | | | | | | +--------+ + + + + | 06/26/ | Office | Cardiology | Dora De La Torre | | | 2019 | Visit | | [address] | | | | | | [address] | | | | | | [place] [address] | | | | | | [phone] | | | | | | | | +--------+ + + + + documented as of this encounter Visit Diagnoses Not on filedocumented in this encounter"
--- OUTSIDE RECORDS SUMMARY | ~2020-05-06 | XMS | Encounter Summary ---
Demographics + + + | Address | [address] | | | [place] [address] | + + + | Home Phone [...] [place] | | | | | [address] | | + + + + + Care Team Providers + +------+ + | Care Hvac Lead Name | Role | Phone | [...] [place] | | | | | | [address] | | | | | | [phone] | | | +--------+ + + + [...] | | | | | [place] [address] | | | | | | [phone] | | | | | | | | +--------+ + + + + | 06/26/ | Office | Cardiology | [facility] | | | 2020 | Visit | | [address] | | | | | | [address] | | | | | | [place] [address] | | | | | | [phone] | | | | | | | | +--------+ + + + + documented as of this encounter Visit Diagnoses Not on filedocumented in this encounter"
--- OUTSIDE RECORDS SUMMARY | ~2020-05-06 | XMS | Encounter Summary ---
Demographics + + + | Address | [address] | | | [place] [address] | + + + | Home Phone [...] [place] | | | | | [address] | | + + + + + Care Team Providers + +------+ + | Care Grade Checker Name | Role | Phone | + +------+ + | Thierry Fry MD | PCP | | + +------+ + Encounter Details +--------+ + + + + | Date | Type | Department | Care Team | Description | +--------+ + + + + | 03/06/ | Hospital | [facility] | Katharine Cardona PA-C | Essential | | 2015 | Encounter | MED CTR LABORATORY | [address] | hypertension | | | | [address] [place] | [place] [address] | | | | | [place], [place] | [phone] | | | | | [address] | | | | | | [phone] | | | +--------+ + + + [...] 0 | | | | (VITAMIN D-3) 37905 | mouth Once a week. | | [...] + + + +---------+ + + | [place]-3 Fatty | Take 1,000 mg by | 60 each | 5 | 03/09/20 | | | Acids (FISH OIL | mouth 2 times daily. | | | 15 | 9 | | CONCENTRATE) 1000 MG | | | | | | | CAPS | | | | | | + + + +---------+ + + | [place]-3 Fatty | Take 1,000 mg by | [...] F | | | | | | [place] [address] | | | | | | [phone] | | | | | | | | +--------+ + + + + | 06/26/ | Office | Cardiology | Isacc De La Torre | | | 2020 | Visit | | [address] | | | | | | [address] | | | | | | [place] [address] | | | | | | [phone] | | | | | | | [...] 12 | 7 - 18 mg/dL | [facility] | | | | | | [facility] | | | | | | [facility] | | | | | | [facility] - | | | | | | LABORATORY | | + + + + + + | Creatinine | 0.66 | 0.60 - 1.30 | [facility] | | | | | mg/dL | [facility] | | | | | | [facility] | | | | | | CENTER - | | | | | | LABORATORY | | + + + + + + | eGFR if not | >60Comment: GLOMERULAR | >=60 | [facility] | | | | FILTRATION | mL/min/1.73m2 | [facility] | | | [place] | RATE,ESTIMATED | | MEDICAL | | | | mL/min/1.14w0Wlhj than | | CENTER - | | [...] + | [address] | [address] | [place], [place] | [phone] | | [facility] | | [address] | | | - LABORATORY | | | | + + + + + documented in this encounter Visit Diagnoses + + | Diagnosis | + + | Essential hypertension Unspecified essential hypertension | + + documented in this encounter"
--- OUTSIDE RECORDS SUMMARY | ~2020-05-06 | XMS | Encounter Summary ---
Demographics + + + | Address | [address] | | | [place] [address] | + + + | Home Phone [...] [place], [place] | | | | | [address] | | + + + + + Care Team Providers + +------+ + | Care Mortgage Consultant Name | Role | Phone | + +------+ + PCP | Unavailable | + +------+ + Encounter Details +--------+ + + + + | Date | Type | Department | Care Team | Description | +--------+ + + + + | 06/07/ | Hospital | [facility] | | | | 1991 - | Encounter | MED CTR GENERIC OP | | | | | | CONV DEPT [address] | | | | 10/07/ | | [address], | | | | 1991 | | [place] [address] | | | | | | [phone] | | | +--------+ + + + [...] [address] | | | | | | [place] [address] | | | | | | [phone] | | | | | | | | +--------+ + + + + | 06/26/ | Office | Cardiology | Dora De La Torre | | | 2019 | Visit | | [address] | | | | | | [address] | | | | | | [place] [address] | | | | | | [phone] | | | | | | | | +--------+ + + + + documented as of this encounter Visit Diagnoses Not on filedocumented in this encounter"
--- OUTSIDE RECORDS SUMMARY | ~2020-05-06 | XMS | Encounter Summary ---
Demographics + + + | Address | [address] | | | [place] [address] | + + + | Home Phone [...] [place] | | | | | [address] | | + + + + + Care Team Providers + +------+ + | Care Labor Relations Worker Name | Role | Phone | [...] | | | [address] [place] | [place] [address] | | | | | [place] [address] | | | | | | [phone] | | | +--------+ + + + [...] [address] | | | | | | [place] [address] | | | | | | [phone] | | | | | | | | +--------+ + + + + | 06/26/ | Office | Cardiology | Dora De La Torre | | | 2019 | Visit | | [address] | | | | | | [address] | | | | | | [place] [address] | | | | | | [phone] | | | | | | | [...]
--- OUTSIDE RECORDS SUMMARY | ~2020-05-06 | XMS | Encounter Summary ---
Demographics + + + | Address | [address] | | | [place] [address] | + + + | Home Phone [...] [place] | | | | | [address] | | + + + + + Care Team Providers + +------+ + | Care Precision Printing Worker Name | Role | Phone | [...] + + | 10/23/ | Telephone | [facility] | Ashley Chávez | Other (Patient | | 2019 | | [facility] | Pollo, Group Director Experience | called about | | | | [address] | | metoprolol. ) | | | | [place], [place] | | | | | | [address] | | | | | | [phone] | | | +--------+ + + + [...] Notes Telephone Encounter - Ashley Chávez, Group Director Experience - [facility]23/2019 10:49 [facility] [...] her back when I have her recommendations. JDW:DEAN OF MEN-[facility]. [facility] umented in this encounter Plan of Treatment +--------+ + + + + | Date | Type | Specialty | Care Team | Description | +--------+ + + + + | 05/29/ | Procedure | Cardiology | Britt Dora | | | 2019 | visit | | [address] | | | | | | [address] | | | | | | [place] [address] | | | | | | [phone] | | | | | | | | +--------+ + + + + | 06/26/ | Office | Cardiology | StefanielarryDora | | 2019 | Visit | | [address] | | | | | | [address] | | | | | | [place] [address] | | | | | | [phone] | | | | | | | | +--------+ + + + + documented as of this encounter Visit Diagnoses Not on filedocumented in this encounter"
--- OUTSIDE RECORDS SUMMARY | ~2020-05-06 | XMS | Encounter Summary ---
Demographics + + + | Address | [address] | | | [place] [address] | + + + | Home Phone [...] [place] | | | | | [address] | | + + + + + Care Team Providers + +------+ + | Care Ruby Software Developer Name | Role | Phone | + +------+ + | Natalee Andersen NP | PCP | | + +------+ + Encounter Details +--------+ + + + + | Date | Type | Department | Care Team | Description | +--------+ + + + + | 06/25/ | Hospital | [facility] | Latricia Feliciano | | | 2014 | Encounter | MED CTR ACUTE | D, [address] | | | | | PHYSICAL THERAPY | [address] [place] [address] | | | | | [address] | [address] | | | | | [place] [address] | | | | | | [phone] | | | +--------+ + + + [...] + + + +---------+ + + | [place]-3 Fatty | Take 1,000 mg by | [...] | | | | | [place] [address] | | | | | | [phone] | | | | | | | | +--------+ + + + + | 06/26/ | Office | Cardiology | Dora De La Torre | | | 2020 | Visit | | [address] | | | | | | [address] | | | | | | [place] [address] | | | | | | [phone] | | | | | | | | +--------+ + + + + documented as of this encounter Visit Diagnoses Not on filedocumented in this encounter"
--- OUTSIDE RECORDS SUMMARY | ~2020-05-06 | XMS | Encounter Summary ---
Demographics + + + | Address | [address] | | | [place] [address] | + + + | Home Phone [...] [place] | | | | | [address] | | + + + + + Care Team Providers + +------+ + | Care Transfill Technician Name | Role | Phone | + +------+ + | Natalee Andersen NP | PCP | | + +------+ + Encounter Details +--------+ + + + + | Date | Type | Department | Care Team | Description | +--------+ + + + + | 07/06/ | Hospital | [facility] | Latricia Feliciano | | | 2014 | Encounter | MED CTR ACUTE | D, PT [address] | | | | | PHYSICAL THERAPY | [address]FT[address] PAIGE | | | | | [address] | [address] | | | | | [place] [address] | | | | | | [phone] | | | +--------+ + + + [...] + + + +---------+ + + | [place]-3 Fatty | Take 1,000 mg by | [...] | | | | | [place] [address] | | | | | | [phone] | | | | | | | | +--------+ + + + + | 06/26/ | Office | Cardiology | Dora De La Torre | | | 2020 | Visit | | [address] | | | | | | [address] [address] | | | | | | [place] [address] | | | | | | [phone] | | | | | | | | +--------+ + + + + documented as of this encounter Visit Diagnoses Not on filedocumented in this encounter"
--- OUTSIDE RECORDS SUMMARY | ~2020-05-06 | XMS | Encounter Summary ---
Demographics + + + | Address | [address] | | | [place] [address] | + + + | Home Phone [...] [place], [place] | | | | | [address] | | + + + + + Care Team Providers + +------+ + | Care Sewage Treatment Plant Operator Name | Role | Phone | + +------+ + PCP | Unavailable | + +------+ + Encounter Details +--------+ + + + + | Date | Type | Department | Care Team | Description | +--------+ + + + + | 03/26/ | Hospital | [facility] | | | | 2001 | Encounter | MED CTR LABORATORY | | | | | | [address] | | | | | | [place] | | | | | | [address] | | | | | | [phone] | | | +--------+ + + + [...] | | | | | [place] [address] | | | | | | [phone] | | | | | | | | +--------+ + + + + | 06/26/ | Office | Cardiology | Dora De La Torre | | | 2020 | Visit | | [address] | | | | | | [address] | | | | | | [place] [address] | | | | | | [phone] | | | | | | | | +--------+ + + + + documented as of this encounter Visit Diagnoses Not on filedocumented in this encounter"
--- OUTSIDE RECORDS SUMMARY | ~2020-05-06 | XMS | Encounter Summary ---
Demographics + + + | Address | [address] | | | [place] [address] | + + + | Home Phone [...] [place] | | | | | [address] | | + + + + + Care Team Providers + +------+ + | Care Washer Carcass Name | Role | Phone | + [...] [place] | | | | | | [address] | | | | | | [phone] | | | +--------+ + + + [...] | | | | | [place] [address] | | | | | | [phone] | | | | | | | | +--------+ + + + + | 06/26/ | Office | Cardiology | Dora De La Torre | | | 2020 | Visit | | [address] | | | | | | [address] | | | | | | [place] [address] | | | | | | [phone] | | | | | | | | +--------+ + + + + documented as of this encounter Visit Diagnoses Not on filedocumented in this encounter"
--- OUTSIDE RECORDS SUMMARY | ~2020-05-06 | XMS | Encounter Summary ---
Demographics + + + | Address | [address] | | | [place] [address] | + + + | Home Phone [...] [place], [place] | | | | | [address] | | + + + + + Care Team Providers + +------+ + | Care Catalyst Concentration Operator Name | Role | Phone | [...] | | | | | [place] [address] | | | | | | [phone] | | | +--------+ + + + [...] | | | | | [place] [address] | | | | | | [phone] | | | | | | | | +--------+ + + + + | 06/26/ | Office | Cardiology | Dora De La Torre | | | 2019 | Visit | | [address] | | | | | | [address] | | | | | | [place] [address] | | | | | | [phone] | | | | | | | | +--------+ + + + + documented as of this encounter Visit Diagnoses Not on filedocumented in this encounter"
[~2020-05-06 06:04] MED LIST changes: +LOW DOSE ASPIRI81 MG PO; +PROTONIX40 MG PO
--- OUTSIDE RECORDS SUMMARY | 2020-05-06 06:08 | XMS ---
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 No recent Security Events currently on file CRITERIA MET - [facility] - Has Care Guidelines - PDMP - [facility] - 2 Visits in 30 Days CARE PROVIDERS WAYNE CAMARGO Internal Medicine 09/07/2019-Current PHONE: [phone] Kenny Palafox DO [facility] Current PHONE: [phone] Jose Ag Family Medicine 01/31/2019-Current PHONE: [phone] Guidelines Source: [facility] Radha Negrete Guidelines Date: 03/13/2019 Care Coordination: Mental health services are being provided by [employer].\T\nbsp; Please contact [employer] with mental health concerns.\T\nbsp; [place]/Philippe [place]: [phone]\T\nbsp; Moshe: [phone]. Care History Medical/Surgical 04/29/2020 [facility] Patient requested new PCP, not happy with Dr. Camargo.\T\nbsp; Patient aware of [facility] appointment 04/30/2020. 04/22/2020 [facility] Patient had follow up scheduled for 04/25/[address] Camargo,but was canceled by doctor.\T\nbsp; Left voice mail for patient to reschedule follow up visit. 10/23/2019 [facility] - CHW CONTACTED JONATHAN AT [facility]- PATIENT DOES NOT MEET THE ACT TEAM REQUIREMENTS FOR SERVICES DUE TO DX. - CHW SUGGESTED TO HAVE GUARDIANSHIP REVIEWED FOR PATIENT DUE TO ONGOING MENTAL HEALTH CONCERNS AND ED VISITS. - JONATHAN STATED SHE WOULD LOOK INTO THIS WITH PATIENT CURRENT CASE MANAGEMENT TEAM. - JONATHAN CAN BE CONTACTED AT [phone]. E.D. VISIT COUNT (12 MO.) 23 [facility]. TOTAL 23 NOTE: Visits indicate total known visits. 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 [place] TYPE: Emergency COMPLAINT: - MEDICAL CLEARANCE DIAGNOSES: - Type 2 diabetes mellitus without complications - Gastro-esophageal reflux disease without esophagitis - Old myocardial infarction - Other prison (current) drug therapy - Essential (primary) hypertension - Allergy status to sulfonamides status - Allergy status to other drugs, medicaments and biological sub - Encounter for other general examination 10/20/2019 20:02 [facility] [place] TYPE: Emergency COMPLAINT: - MEDICAL CLEARANCE DIAGNOSES: - Gastro-esophageal reflux disease without esophagitis - Type 2 diabetes mellitus without complications - Encounter for other general examination - 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 - Old myocardial infarction - Essential (primary) hypertension - Type 2 diabetes mellitus with hyperglycemia 10/11/2019 10:06 [facility] [place] TYPE: Emergency COMPLAINT: - MEDICAL CLEARANCE DIAGNOSES: - Essential (primary) hypertension - Delusional disorders - Old myocardial infarction - Delusional disorders - Allergy status to sulfonamides status - Other prison (current) drug therapy - Schizoaffective disorder, unspecified 09/28/2019 13:19 [facility] [place] TYPE: Emergency COMPLAINT: - MEDICAL CLEARANCE DIAGNOSES: - Type 2 diabetes mellitus without complications - Allergy status to other drugs, medicaments and biological sub - Old myocardial infarction - Other prison (current) drug therapy - Allergy status to sulfonamides status - Gastro-esophageal reflux disease without esophagitis - Essential (primary) hypertension - Suicidal ideations - Encounter for other administrative examinations 09/26/2019 10:06 [facility] [place] TYPE: Emergency COMPLAINT: - MEDICAL CLEARANCE DIAGNOSES: - Other prison (current) drug therapy - Personal history of transient ischemic attack (TIA), and cere - Gastro-esophageal reflux disease without esophagitis - Allergy status to sulfonamides status - Old myocardial infarction - Schizoaffective disorder, unspecified - Allergy status to other drugs, medicaments and biological sub - Essential (primary) hypertension - 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 09/25/2019 13:35 [facility] [place] TYPE: Emergency COMPLAINT: - HEARING VOICES DIAGNOSES: - Type 2 diabetes mellitus without complications - Personal history of transient ischemic attack (TIA), and cere - Gastro-esophageal reflux disease without esophagitis - Schizoaffective disorder, unspecified - Suicidal ideations - 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 - Old myocardial [...] without esophagitis - Old myocardial infarction - group home (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 - Essential (primary) hypertension - Rash and other nonspecific skin eruption - Allergy status to sulfonamides status - 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 09/18/2019 10:33 [facility] [place] TYPE: Emergency COMPLAINT: - SUICIDAL THOUGHTS, HEARING VOICES DIAGNOSES: - Disorder of urea cycle metabolism, unspecified - Other prison (current) drug therapy - Schizoaffective disorder, unspecified - Essential (primary) hypertension - Type 2 diabetes mellitus without complications - Gastro-esophageal reflux disease without esophagitis - Old myocardial infarction - Allergy status to sulfonamides status - Allergy status to other drugs, medicaments and biological sub - group home (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 09/06/2019 11:40 [facility] [place] TYPE: Emergency COMPLAINT: - MEDICAL CLEARANCE DIAGNOSES: - Old myocardial infarction - Essential (primary) hypertension - Allergy status to sulfonamides status - Auditory hallucinations - Other prison (current) drug therapy - Allergy status to other drugs, medicaments and biological sub - Type 2 diabetes mellitus without complications - Gastro-esophageal reflux disease without esophagitis 08/15/2019 15:26 [facility] [place] TYPE: Emergency COMPLAINT: - DIZZINESS DIAGNOSES: - Schizoaffective disorder, unspecified - 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 - Type 2 diabetes [...] ischemic attack (TIA), and cere - 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 plant operator (current) [...] Allergy status to sulfonamides status - Other prison (current) drug therapy - Allergy status to [...] status to narcotic agent status - Other prison (current) drug therapy - Schizophrenia, unspecified Plus 3 More Visits INPATIENT VISIT [...] sub - Paroxysmal atrial fibrillation - 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
--- NOTE | 2020-05-06 09:09 | EKG ---
[facility] [address] [facility] [place] [address] Signed Normal sinus rhythm Left axis deviation Left bundle branch block Abnormal ECG When compared with ECG of 03-MAY-2020 19:06, No significant change was found Confirmed by GAYLE MUÑOZ MD ([id number]) on 05/06/2020 9:08:50 AM Electronically Signed By: GAYLE MUÑOZ MD 05/06/20 0909 PATIENT NAME: BERNARDA ALARCON AIDE Electrocardiogram DATE OF : 55 PHYSICIAN: GAYLE MUÑOZ MD REPORT #: [id number] REPORT IS CONFIDENTIAL AND NOT TO BE RELEASED WITHOUT AUTHORIZATION
== END 2020-05-06 07:08 | disposition home or self-care (01) ==
LOC: ED 06:04
DX: R00.2 Palpitations (principal); I10 Essential (primary) hypertension; K21.9 Gastro-esophageal reflux disease without esophagitis; E11.9 Type 2 diabetes mellitus without complications; Z79.84 Long term (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 of 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; I25.2 Old myocardial infarction; Z88.2 Allergy status to sulfonamides; Z88.8 Allergy status to other drugs, medicaments and biological substances; Z79.899 Other long term (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; Z79.82 Long term (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
CPT/HCPCS: 93005; 93010; 99285-25

== ENCOUNTER 2020-05-13 19:47 | Emergency (ER) | payer MEDICARE ==
[~2020-05-13] VITALS: Ht 170.2 cm; Wt 90.7 kg
--- OUTSIDE RECORDS SUMMARY | ~2020-05-13 | XMS | Encounter Summary ---
Demographics + + + | Address | [address] | | | [place] [address] | + + + | Home Phone | | + + + | Preferred Language | Unknown | + + + | Marital Status | | + + + | Advent Affiliation | [id number] | + + + [...] [place] | | | | | [address] | | + + + + + Care Team Providers + +------+ + | Care Health Concierge Name | Role | Phone | + [...] | | | spondylolist | | [address] | | | | | hesis | | [place], | | | | | Spinal | | [place] [address] | | | | | stenosis, | | Phone: | | | | | lumbar | | [phone] | | | | | region, | | Fax: | | | | | without | | [phone] | | | | | neurogenic | [...] | | | | | | | [place] ARTHDSIS | | | | | | [...] | | | | | | [place] | | | | | | | [...] | | | | | | SEG [place] | | | | | | | [...] + + | 07/02/ | Surgery | [facility] | Frandy Teresa, | MIS L5-S1 | | 2013 | | MED CTR OR INTRA OP | DO [address] | TRANSFORAMINAL | | | | [address] | [address] [place], [place] | LUMBAR INTERBODY | | | | [place] | [id number] | FUSION | | | | [address] | | | | | | [phone] | | | +--------+---------+ + + + [...] + + + | Blood Pressure | 124/53 | 07/02/2014 9:48 AM | | | | | PDT | | + + + + + | Pulse | 77 | 07/02/2014 9:48 AM | | | | | PDT | | + + + + + | Temperature | 36.8 C (98.2 F) | 07/02/2014 9:48 AM | | | | | PDT | | + + + + + | Respiratory Rate | 18 | 07/02/2014 9:48 AM | | | | | PDT | | + + + + + | Oxygen Saturation | 92% | 07/02/2014 9:48 AM | | | [...] might be different fro m the original. [facility] DISCHARGE SUMMARY PATIENT NAME: Cindy Arndt : [...] Stable for discharge to SNF. DISPOSITION: SNF ([facility]) DISCHARGE MEDICATIONS Medications prior to admission that [...] Take 15 mg by mouth nightl y. [place]-3 Fatty Acids (FISH OIL CONCENTRATE) 1000 MG [...] at all times, except while sleeping. Follow l umbar precautions. documented in this encounter Medications at [...] + + + +---------+ + + | [place]-3 Fatty | Take 1,000 mg by | [...] prophylaxis -DC plan: SNF versus home with C any time. Maria T Storm RN - 07/04/2014 6:56 PM PDTFoley cath dc'd and MARI drain dc'd no problems. Chris Lynn PA-C - 07/04/2014 7:43 AM PDT [facility] PROGRESS NOTE Pt. Name/Age/: Cindy Arndt 58 y.o. 1955 Med. Record Number: [id number] Date of admission: 07/02/2014 Subjective: The patient [...] home medications. D/C plan: Home tomorrow with [facility]. D/c mari drain and riley cath today. D/c emergency room tech. Patient Active Problem List Diagnosis LUMBAR DISC [...] signed by: Chris Nicole, 07/04/2014 7:45 [facility] Chris Lynn PA-C - 07/03/2014 7:13 AM PDT . [facility] PROGRESS NOTE Pt. Name/Age/: Cindy Arndt 58 y.o. 1955 Med. Record Number: [id number] Date of admission: 07/02/2014 Subjective: The patient [...] Electronically signed by: Chris Nicole, 07/03/2014 7:13 [facility] on Smith, KRIS - 07/03/2014 6:50 AM PDTRemoved continuous oximeter for oxygenation studies.Elec tronically signed by Regina Smith RRT at 07/03/2014 6:58 AM PDTdocumented in this encounter H&P Notes Frandy Teresa DO - 07/02/2014 11:15 AM PDT SURGICAL INTERIM HISTORY AND PHYSICAL UPDATE Pt. Name/Age/: Cindy Arndt 58 y.o. 1955 Date of admission: 07/02/2014 The current H&P was reviewed. The patient was reexamined. Re-evaluation of the patient co nfirms the necessity for the scheduled procedure. No change has occurred in the patient s condition since the H&P was completed less than 30 days ago. Electronically signed by: Frandy Teresa DO, 07/02/2014 11:15 PEACEHEALTHElectronically signed by Frandy Teresa DO at 06/2014 11:15 AM PDTDreyFrandy tim DO - 07/02/2014 11:15 AM [id number] [facility], [address] [place] [id number] FAX: NEUROSURGERY HISTORY AND PHYSICAL EXAMINATION CHIEF COMPLAINT: No chief complaint on file. HISTORY OF PRESENT ILLNESS: The patient is a 58 y.o. female with the complaint of back jose n that began 5 years ago. The symptoms began after turning in bed a certain way. Since lazaro t time the patient feel her pain has been worsening. She rates the pain as 3-9 on scale of 1-10. She describes the pain as a aching feeling. The patient also describes leg symptoms that occur on left side. The leg symptoms account for greater than or equal to 50% of her symptoms. The leg symptoms are intermittent and the symptoms travels from the buttock down the side and back of her leg to the top and bottom o f her left foot. She describes the sensation as numbness. The patient also describes left l eg weakness. She has started to walk with a cane due to the weakness. The patient does not report any change in bowel or bladder function recently. Her symptoms improve with pain medication, heat/ice, muscle relaxers, sitting with her feet up, water therapy. Her symptoms worsen with standing, lifting, bending, walking. There have been no interval changes since her last visit. She has tried lifestyle modification, pain medications, muscle relaxers, physical therapy, steroid injections, heat/ice. PAST MEDICAL HISTORY: Past Medical History Diagnosis Date GERD (gastroesophageal reflux disease) Chronic lumbar pain Mononeuritis SCALP Hypertension Hyperlipidemia Diabetes mellitus (HCC) Dermatitis Edema Obesity Bipolar 1 disorder (HCC) PVC (premature ventricular contraction) Obstructive sleep apnea DDD (degenerative disc disease), lumbar Fatty liver disease, nonalcoholic Somatic dysfunction of spine, sacral Chest pain Hypothyroidism Gastritis 03/30/13 egd,biopsies negative Neuropathy Stomach ulcer Schizophrenia (HCC) Migraine Gastric reflux Depression Anxiety Anemia Irregular heartbeat PAST SURGICAL HISTORY: Past Surgical History Procedure Date Rajesh placement tibia 2001 RIGHT Cholecystectomy 1998 Mastectomy, partial 1996 Hysterectomy 1992 [facility], Tonsillectomy Dilatation & curretage 1973 Gastric sleeve 2012 CURRENT MEDICATIONS: Current Outpatient Prescriptions on File Prior to Visit Medication Sig Dispense Refill asenapine (SAPHRIS) [address] 10 mg under the tongue 2 times daily. aspirin 81 MG tablet Take 81 mg by mouth Daily. atenolol (TENORMIN) 50 mg tablet Take 50 mg by mouth 2 times daily. atorvaSTATin (LIPITOR) 10 mg tablet Take 10 mg by mouth nightly. B Complex Vitamins (VITAMIN B COMPLEX PO) Take by mouth. Calcium Citrate 1040 MG TABS Take 1,040 mg by mouth Daily. Cholecalciferol (VITAMIN D3) 2000 UNITS CAPS Take 2,000 Units by mouth 2 times daily. Cyanocobalamin (VITAMIN B12 PO) Take by mouth. cyclobenzaprine (FLEXERIL) 5 MG tablet Take 5 mg by mouth Daily as needed. Digestive Enzymes (PAPAYA ENZYME PO) Take by mouth 3 times daily. divalproex (DEPAKOTE) 500 mg EC tablet 1250mg by mouth at bedtime fluocinonide (LIDEX) 0.05 % ointment Apply to affected area twice daily as needed glimepiride (AMARYL) 4 mg tablet Take 4 mg by mouth 2 times daily. HYDROCODONE-ACETAMINOPHEN PO levothyroxine (SYNTHROID) 100 mcg tablet Take 100 mcg by mouth Daily. lisinopril (PRINIVIL, ZESTRIL) 10 mg tablet Take 10 mg by mouth Daily. Magnesium 250 MG TABS Take 1 tablet by mouth Daily. Melatonin [address] 5 mg under the tongue nightly. metFORMIN (GLUCOPHAGE) 500 mg tablet Take 500 mg by mouth as needed. metformin (GLUMETZA) 500 MG 24 hr tablet Take 500 mg by mouth 2 times daily (with ger akfast & dinner). methocarbamol (ROBAXIN) 750 mg tablet Take 750 mg by mouth 3 times daily as needed. Multiple Vitamins-Minerals (CENTRUM SILVER PO) Take by mouth. Naproxen Sodium (ALEVE PO) TABS Two tablets by mouth twice daily as needed OLANZapine zydis (ZYPREXA ZYDIS) 15 MG disintegrating tablet Take 15 mg by mouth nigh tlgaston. [place]-3 Fatty Acids (FISH OIL CONCENTRATE) 1000 MG CAPS Take 1,000 mg by mouth 3 time s daily. omeprazole (PRILOSEC) 40 MG capsule Take 40 mg by mouth Daily. PARoxetine (PAXIL) 20 mg tablet Take 20 mg by mouth Daily. tocopherol (VITAMIN E) 400 units capsule Take 400 Units by mouth 2 times daily. traMADol (ULTRAM) 50 mg tablet Take 50 mg by mouth Daily as needed. UNCODED MEDICATION Diagnosis: Obstructive Sleep Apnea ICD-9: 327.23 Length of Need: 99 Months 1 Device 0 ALLERGIES: Allergies Allergen Reactions Demerol Nausea And Vomiting Duloxetine Muscle weakness, profuse sweating Erythromycin Fluoxetine Haloperidol Phenergan Skin crawling/agitation Prochlorperazine Maleate Topamax Sulfa Antibiotics Rash SOCIAL HISTORY: The patient reports that she has never smoked. She has never used smokeless tobacco. She re ports that she does not drink alcohol or use illicit drugs. FAMILY HISTORY: Family History Problem Relation Age of Onset High blood pressure Mother High blood pressure Father Cancer Sister cervical Arthritis Mother Thyroid disease Mother Heart disease Mother Other (See Comment) Father lung disease Mental illness Father REVIEW OF SYSTEMS GENERALLY: No fever, no night sweats, + anemia, no fatigue, no recent profound weight tang es. EYES: No eye problems, + use of corrective lenses, no eye injury, no double vision, no blin dness. EARS, NOSE, AND THROAT: No changes in taste or smell, no hearing difficulty, no ringing in the ears, no ear drainage, no dizziness, no voice changes, no difficulty swallowing, no sign ificant snoring, + sleep apnea, + sinus problems, no major dental work. NEUROLOGICALLY: Please see the review of systems discussed above in the history of present illness. In addition, the patient has numbness/pain of arms, numbness/pain of legs, weakness , muscle aching, change in walk, head injury, back injury, pain in back, migraine. PSYCHIATRIC: + depression, + sleep disorders, + anxiety, + bipolar disorder, no psychotic e pisodes. CARDIOVASCULAR: No heart attacks, no heart murmur, + heart fluttering, + chest pain, + ankl e swelling. LUNG DISEASE: No shortness of breath, no cough, no tuberculosis, no bloody cough, no asthma , no emphysema/COPD. GASTROINTESTINAL: No bowel disease, no nausea or vomiting, + rectal bleeding, + constipatio n, + stool incontinence, no liver disease, + gallbladder disease, + abdominal pain, no ulcer s. KIDNEY DISEASE: No urinary frequency, no painful or difficult urination, + incontinence. ENDOCRINE: + diabetes, + thyroid disease, no osteopenia or osteoporosis, no breast drainage . SKIN: + breast lumps, no skin changes, no rashes, no itches. HEMATOLOGIC/LYMPHATIC: No enlarged lymph nodes, no easy or unusual bleeding, no personal hi story of cancer. RHEUMATOLOGIC: + joint arthritis, no rheumatoid arthritis. PHYSICAL EXAMINATION: There were no vitals taken for this visit. There is no height or weight on file to calculat e BMI. GENERAL: Cindy Arndt is in no acute distress with unlabored respirations. The tigist portillo does not appear uncomfortable throughout the exam today. HEENT: HEAD/FACE: EYES: EARS: NASOPHARNYX: OROPHARNYX: Normocephalic and atraumatic. There are no areas of recent trauma. Normal sclerae without icterus. No drainage or tenderness. Clear without drainage. Clear without erythema. NECK (ANTERIOR): Supple and without palpable masses. CHEST: Clear to ausculation without crackles or wheeze. HEART: Regular rate and rhythm without murmurs. ABDOMEN: Soft, non-tender, non-distended, and without palpable masses. The patient is obe se. SPINE: There is no tenderness in the midline of the cervical or thoracic spine. There is no major palpable deformity of the spine. The lumbar spine shows there is tenderness in the midline of the L5 levels. To palpation, there is signficant left myofascial tenderness. EXTREMITIES: No cyanosis, clubbing, or edema. Distal pulses are palpable. NEUROLOGICAL EXAM: MENTAL STATUS: The patient is awake, alert, and oriented. She follows simple and complex commands. She speech is fluent, her comprehends speech well, and her repeats well. She has no apparent deficits with short or ad terminal makeup operator memory. CRANIAL NERVES: II: Acuity is intact. Cardoza are full to confrontation. III, IV, : The pupils are reactive. Extraocular movements are intact. No ptosis is not ed. V: Facial sensation is intact and symmetric. VII: Facial movements are symmetric. VIII: Hearing is intact bilaterally. IX, X: The uvula and palate move appropriately. XI: Shrug is equal bilaterally. XII: Tongue protrusion is midline. MOTOR EXAM: (5 IS NORMAL) * Indicates pain limited MUSCLE/ MOVEMENT: RIGHT LEFT Deltoids 5 5 Biceps 5 5 Triceps 5 5 Wrist Flexion 5 5 Wrist Extension 5 5 Median Intrinsics 5 5 Ulnar Intrinsics 5 5 Home Economics Teacher Strength 5 5 Hip Flexion 5 4* Hip Extension 5 4* Knee Flexion 5 4* Knee Extension 5 4* Dorsiflexion 5 4* Extensor Hallicus Longus 5 4* Plantarflexion 5 4* SENSORY EXAM: Sensory exam shows left L5 and S1-type dysesthesia. REFLEXES: (2 OR 2+ IS NORMAL) REFLEX: RIGHT LEFT BICEPS 2 2 BRACHIORADIALIS 2 2 TRICEPS 2 2 PATELLAR 2 2 ACHILLES 2 1 HINTON'S ABSENT ABSENT PLANTAR DOWNGOING DOWNGOING GAIT: Gait is stead flat-footed, but she is unable to toe or heel-walk. PERIPHERAL NERVE/MISC: Tinel is negative at the wrists and elbows bilaterally. Phalen is negative. Straight leg raise is positive bilaterally, left worse than right. Humza's test of the hips is negative bilaterally. RADIOGRAPHIC REVIEW: The patient's imaging was reviewed in detail with the patient today during the visit. The MRI of the lumbar spine from 03/11/14 demonstrates spondylolisthesis L5-S1. There is resultin g lateral recess and foraminal stenosis. There are Modic endplate changes and facet hypertro phy. There is dynamic instability with flexion/extension. ASSESSMENT: NEUROSURGICAL DIAGNOSES: Encounter Diagnoses Name Primary? Spondylisthesis Yes Radiculopathy of leg Lumbar spine instability Lumbar spondylosis Foraminal stenosis of lumbosacral region GENERAL DIAGNOSES: Past Medical History Diagnosis Date GERD (gastroesophageal reflux disease) Chronic lumbar pain Mononeuritis SCALP Hypertension Hyperlipidemia Diabetes mellitus (HCC) Dermatitis Edema Obesity Bipolar 1 disorder (HCC) PVC (premature ventricular contraction) Obstructive sleep apnea DDD (degenerative disc disease), lumbar Fatty liver disease, nonalcoholic Somatic dysfunction of spine, sacral Chest pain Hypothyroidism Gastritis 03/30/13 egd,biopsies negative Neuropathy Stomach ulcer Schizophrenia (HCC) Migraine Gastric reflux Depression Anxiety Anemia Irregular heartbeat PLAN: It was a pleasure meeting and evaluating this patient today, and I greatly appreciate the r eferral. The patient has L5-S1 spondylolisthesis, which is unstable with flexion/extnesion. This is likely contributing to her back and leg symptoms. I had a lengthy discussion with the patient about her options for care including surgical a nd non-surgical options. She would like to proceed with TLIF L5-S1. We discussed the risks, alternatives, and benefits to surgical intervention with Ms. Arndt in clinic. These risks included but were not limited to , stroke, heart attack, numbn ess, weakness, paralysis, failure of fusion, failure of hardware, subsidence, adjacent segme nt degeneration, cerebrospinal fluid leak, bleeding, infection, injury to surrounding tissue s and organs, injury from positioning, injury to the nerves, difficulty with breathing, diff iculty with swallowing, difficulty with voice change, and need for additional surgery. Surgical options were discussed and the technique to be employed was described in detail to her. All her questions were answered. We discussed that the goal of the surgery is to prevent progression of her disease, but it is not considered a cure. We also discussed that although some patients may obtain 100% sym ptom relief, it is realistic to anticipate that some symptoms will continue postoperatively despite a successful surgery. We also discussed that there is no guarantee that surgery will provide improvement in her c ondition, and indeed may even worsen the symptoms. We also discussed that in the course of the procedure the operative plan may be altered to include more, less, or different levels d epending upon findings in order to provide her with the best possible outcome. I recommended for this patient that she be fitted with a brace before surgery to improve he r stability now to support her weak muscles and to reduce pain by restricting mobility. For multiple (more than 1 level fusions), I recommend the use of a bone growth stimulator p ostoperatively. This is to improve the probability and rate of fusion. She will follow-up with her primary care provider for preoperative clearance and optimizati on prior to presenting for surgery. documented in this en counter Procedure Notes [facility] - 07/12/2014 12:00 AM PDT 14 1:45 PM PDTHU [facility] - 07/04/2014 12:00 AM PDT [facility] - 07/02/2014 12:00 AM PDT documented in this encounter Miscellaneous Notes Plan of Care - [facility] - 07/12/2014 12:00 AM PDT iscellaneous - [facility] 07/12/2014 12:00 AM PDTElec tronically signed by Mariah Schulte at 07/12/2014 1:45 PM PDTMiscellaneous - [facility] - 07/12/2014 12:00 AM PDT i scellaneous - [facility] - 07/12/2014 12:00 AM PDT lan of Care - Germaine Louis RN - 07/05/2014 5:00 PM PDTProb honey: General Plan of Care (Adult, Obstetrics) Goal: Care Plan Shift Summary & Review . Outcome: Adequate for Discharge Date Met: 07/05/14 Pt DCd to [facility] per her request. Did not feel safe to go home at this time. Needed some m ore strengthening for stairs. Pain better controlled with Percocet dose increase although dahiana hayward is somewhat more sleepy. Does still c/o muscle spasms to her legs. Voiding better this aft ernoon. Had 650 out in one void. Still constipated. But refused to have a suppository or any more laxative d/t fear of bowel incontinence with transport to a new facility. lan of Care - Heather Barbosa MSW - 07/05/2014 4:06 PM PDTProblem: General Plan of Care (Adult, Obstetrics) Goal: Care Plan Shift Summary & Review . Cindy was going to go home with home health, however, she was not doing as well as she t hought she would and requested to go to a SNF. [facility] accepted and she will be transported to their facility today at 1645. Electronically signed by: LANDON Cervantes 07/05/2014 16:06 lan of Care - Madison Diaz COTA - 07/05/2014 1:25 PM PDTProblem: General Plan of Care (Adult, Obstetrics) Goal: Care Plan Shift Summary & Review . Occupational Therapy Plan of Care Missed Visit (patient declined) Note Summary: Attemted to see pt for tx ,declined stating " have just been medicated for pain and is a 6/10 and I will be going to a [facility] as I have 16 steps to my apartment and c an not do that yet. To re-attempt to see pt later in pm. Occupational Therapy will follow Cindy Santos quinn (see comments) (eval +1 addl ses azeem) until discharge from therapy or discharged from the hospital. Occupational Therapy Discharge Recommendations are: Recommended discharge disposition: home independent;other (see comments) (will have assist from sister(s) as needed initially) Post discharge occupational therapy recommendation: (none anticipated at this time; TBD) Equipment Recommendations: tub bench;hand held shower head;crew supervisor;comfort height toilet ( pt. has all necessary equipment) Identified Problems Needing Skilled Intervention: Debility Planned Interventions:Planned Therapy Interventions: ADL retraining;transfer training Patient Status/Goals Reflects last filed data of patient status; may be from multiple contributors. Eating/Self Feeding: Status: Assist: Utilizes: Goal status: Goal: Grooming: Status: did not occur today Assist: Utilizes: Goal status: New Goal: modified independent Bathing: Status: Assist: Utilizes: Goal status: Goal: UE Dressing: Status: Assist: Utilizes: Goal status: Goal: LE Dressing: Status: did not occur today Assist: Utilizes: Goal status: New Goal: modified independent Toileting: Status: did not occur today Assist: Utilizes: Goal status: New Goal: modified independent Transfers: Toilet Transfer Status: did not occur today Assist: Utilizes: Goal status: New Goal: modified independent Transfers: Walk in Shower Status: Assist: Utilizes: Goal status: Goal: Transfers: Tub Status: Assist: Utilizes: Goal status: Goal: Bed Mobility-Sit to Supine Status: Assist: Utilizes: Goal status: Goal: Bed Mobility-Supine to Sit Status: Assist: Utilizes: Goal status: Goal: Additional Goals: Status: Goal Status: Goal: Status: Goal: Status: Goal: Status: Goal: Status: Goal: NF Transfer - Chris Nicole PA-C - 07/05/2014 1:18 PM PDTFormatting of this note might be different fro m the original. [facility] TRANSFER ORDERS Patient Name: Cindy Arndt Patient : 1955 Gender: female Date of Admission: 07/02/2014 Date of Discharge: 07/05/2014 Admitting Provider: Frandy Teresa DO Discharging Provider: Chris Nicole PA-C Consultants: none PCP: Natalee Andersen [facility] transferring to: [facility] Provider after transfer: PCP and Dr. Frandy Teresa CODE STATUS: [x] Attempt CPR [] Do not resuscitate If patient is pulseless and not breathing, RN/PIANO REGULATOR may pronounce . Advanced Directives included: [] POLST [] MOLST/MOST [] Comfort One ([place]) [] Other: Code status discussed with: [] Patient [] Spouse/Family [] DPOA [] Other: Name of person discussed with: Date discussed: Isolation/Infection Precautions: [] None Height: Height: 170.2 cm (5' 7") Wt Readings from Last 3 Encounters: 07/02/14 136.079 kg (300 lb) 07/02/14 136.079 kg (300 lb) 06/25/14 134.9 kg (297 lb 6.4 oz) Admitting Diagnosis: Acquired spondylolisthesis Spinal stenosis, lumbar region, without neurogenic claudication Thoracic or lumbosacral neuritis or radiculitis, unspecified Lumbago Patient Active Problem List Diagnosis LUMBAR DISC [...] Anxiety Anemia Irregular heartbeat Depression Migraine Schizophrenia Allergies Allergen Reactions Erythromycin Nausea And Vomiting Fluoxetine Other (See Comments) "mind racing" Haloperidol Other (See Comments) "mind racing" Phenergan Other (See Comments) Skin crawling/agitation Prochlorperazine Maleate Other (See Comments) Skin crawling/agitation Topamax Other (See Comments) "mind racing and dellusions" Demerol Nausea And Vomiting Duloxetine Muscle weakness, profuse sweating Sulfa Antibiotics Rash There is no immunization history on file for this patient. Diet: [] As tolerated CHARGE MASTER ANALYST may upgrade or downgrade diet as condition Indicates. [x] RN may downgrade diet as indicated. Type: [] Continue current diet of: Diet and Supplements Diet DIET CONSISTENT CARBOHYDRATE Number of Occurrences: -1 Days [] Other: Consistency/Precautions: [] Whole [] Thin Liquids [] Cut-up [] [place] Thick [] Advanced Chopped [] Honey Thickened [] Chopped [] Advanced Ground [] 1:1 feedings [] Ground/Pureed [] Other: Tube Feedings: [] PEG [] GT [] JT [] NGT [] Formula type: (Aluminum Boat Assembly Supervisor may change/substitute if indicated). [] Continuous Rate: ml/hr, infusing hrs/day [] Bolus feeds: ml every hours [] Additional water: ml every hours Respiratory: [] BiPAP at night & PRN SOB. Settings: O2 L bleed Dx: [] CPAP at night & PRN SOB. Settings: O2 L bleed Dx: [] Suction & Pulmonary toilet PRN secretion/sputum management. Dx: [] Incentive Spirometer QID and PRN while awake. Duration: Dx: [] Tracheostomy management per protocol [x] Oxygen: Lpm NC/Trach [] Continuous [] NOC [] Humidified [] prn SaO2 < _90____ % [] prn SOB/dyspnea Dx: [] Other: Dx: Bladder: [] Follow nursing protocol for recent riley removal [x] Riley catheter managment per nursing protocol - Indication:PVR>500cc [] Permanent [] Temporary [] Remove riley catheter on and follow nursing protocol for recent riley remova l. [] Straight catheter every hour(s) and record amount drain Dx: [] Bladder scan every hour(s) and straight cath for > ml Dx: [] Suprapubic catheter management Dx: Other Lines, Tubes and Drains: (to be managed by nursing protocol) [] IV access and location: [] Permanent [] Temporary: Instructions/indications for removal of IV access: [] May use Alteplase per protocol PRN occluded central venous catheter [] Colostomy [] Ileostomy [] Urostomy [] Nephrostomy [] Dialysis Access - Type & Location: [] Drains - Type & Location: [] Other: Activity/Therapies: []WBAT [] Weight Bearing Restricted (specify limb(s)): [x] PT Evaluation & Management for: _teach proper lumbar precautions [x] OT Evaluation & Management for: ____same as above [] CHARGE MASTER ANALYST Evaluation &Management for: [] Other: Wound/Skin Care: [x] Follow current recommendations of the wound team for treatment. [] Follow standard nursing protocols for wound care. [] Wound Vac management per nursing protocol. Indication: Location: Settings: Change frequency: & prn [] Other: Labs/Imaging: [] PT/INR: Frequency: Dx: Goal INR: Duration of therapy: [] Fingerstick glucose checks: Dx: DM [] Other: Test/Study Needed/Frequency Diagnosis/Indication Follow up appointments and consultations: Dr. Mcgovern__Brii Date/Time: _[address] Date/Time I have advised this patient that he/she not use tobacco products. TB screening: Upon admission the 1st and 2nd step TST will be done as per protocol if Resid ent has no history of TB or a past positive TST. Pharmacist may substitute equivalent Rx based on facility or insurance formulary as needed unless otherwise specified by physician. Please write "LOWELL" (Dispense as written) if a medi cation should not be substituted. Please make sure to write a diagnosis for ALL medications continued on transfer. Antibioti cs require a stop date. If medications do not contain a SIG, make sure doses/routes and ramírez edule is included. Current Discharge Medication List START taking these medications Dose Details Last Dose Taken diazepam (VALIUM) 5 mg tablet 5 mg Take 1 tablet by mouth every 6 hours as needed. Quantity: 60 tablet Refills: 0 Start date: 07/05/14 HYDROcodone-acetaminophen (NORCO) 10-325 mg per tablet 1-2 tablets Take 1-2 tablets by [facility] every 4 hours as needed for Pain. Quantity: 60 tablet Refills: 0 Start date: 07/05/14 Lactulose SOLN 30 mLs Take 30 mLs by mouth every 6 hours as needed (Constipation). Quantity: 240 mL Refills: 1 Start date: 07/05/14 CONTINUE these medications which have NOT CHANGED Dose Details Last Dose Taken asenapine (SAPHRIS) 10 mg SL tablet [address] 10 mg under the tongue nightly. atenolol (TENORMIN) 50 mg tablet 25 mg Take 25 mg by mouth nightly. B Complex Vitamins (VITAMIN B COMPLEX PO) 1 capsule Take 1 capsule by mouth Daily. Calcium Citrate 1040 MG TABS 1,040 mg Take 1,040 mg by mouth Daily. Cholecalciferol (VITAMIN D3) 2000 UNITS CAPS 2,000 Units Take 2,000 Units by mouth 2 time s daily. Cyanocobalamin (VITAMIN B12 PO) 2,[address] 2,500 mcg under the tongue Daily. Digestive Enzymes (PAPAYA ENZYME PO) 2 capsules Take 2 capsules by mouth 3 times daily. divalproex (DEPAKOTE) 500 mg EC tablet 1250mg by mouth at bedtime fluocinonide (LIDEX) 0.05 % ointment Apply to affected area twice daily as needed levothyroxine (SYNTHROID) 100 mcg tablet 100 mcg Take 100 mcg by mouth Daily. lisinopril (PRINIVIL, ZESTRIL) 10 mg tablet 10 mg Take 10 mg by mouth Daily. Magnesium 250 MG TABS 2 tablets Take 2 tablets by mouth nightly. Melatonin 5 MG SUBL [address] 5 mg under the tongue nightly. metFORMIN (GLUCOPHAGE) 500 mg tablet 500 mg Take 500 mg by mouth as needed. metFORMIN (GLUCOPHAGE-XR) 500 mg 24 hr tablet 500 mg Take 500 mg by mouth 2 times daily. Multiple Vitamins-Minerals (CENTRUM SILVER PO) 1 tablet Take 1 tablet by mouth Daily. OLANZapine zydis (ZYPREXA ZYDIS) 15 MG disintegrating tablet 15 mg Take 15 mg by mouth ni ghtly. [place]-3 Fatty Acids (FISH OIL CONCENTRATE) 1000 MG CAPS 1,000 mg Take 1,000 mg by mouth 3 times daily. omeprazole (PRILOSEC) 40 MG capsule 40 mg Take 40 mg by mouth Daily. PARoxetine (PAXIL) 20 mg tablet 20 mg Take 20 mg by mouth Daily. tocopherol (VITAMIN E) 400 units capsule 400 Units Take 400 Units by mouth 2 times daily. UNCODED MEDICATION Diagnosis: Obstructive Sleep Apnea ICD-9: 327.23 Length of Need: 99 Months Quantity: 1 Device Refills: 0 Comments: CPAP Mask, Headgear, Chinstrap, Cushions, Nasal Pillows, Tubing (heated coil), H umidifier Chamber, Filters. Associated Diagnoses: Obstructive sleep apnea (adult) (pediatric) I, Chris Nicole PA-C, certify that post hospital snf care is medically nec essary on a continuing basis for any of the conditions for which he/she received care during this hospitalization. Check one: [x] Skilled [] Intermediate Additional Orders/Instructions: Physician's signature:__Chris Nicole PA-C 07/05/2014 13:18 [facility] USE ONLY: [] Admitting orders verbally reviewed with Admitting Physician, modified where appropriate, and approved. Verbal Order from Date: Time: _ RN name: RN signature: [] Admitting orders reviewed, modified where appropriate, and approved. Physician's signature: Date: Time: lan of Care - Heather Anand PT - 07/05/2014 12:41 PM PDTProblem: General Plan of Care (Adult, Obstetrics) Goal: Care Plan Shift Summary & Review . Physical Therapy Plan of Care Treatment Note Summary: Pt. having difficulty with pain management, has elected SNF before returning home to indpt apt. living. Has not been able to tolerate progressive walking and [facility] due to multiple pain c/o. Attempted to see pt. 1145, however had just rec eived pain medication and requested PT return, SPL 9/10. At 1205 pt contacted PT for assist OOB due to left LE spasms and need for position change. Sitting at EOB on arrival, CONTINUOUS IMPROVEMENT INTERN pres ent. Pt. donned LSO brace, stood to FWW with cues, SBA-modified indpt. Ambulated with FWW, S BA x 75'. Sat in chair for lunch. All supplies in reach. Pt's progress slowed due to poor pa in control, better today with activity tolerance with PT, spams reduced with activity. Pt. w ill need walker prior to d/c. Physical Therapy will follow Cindy Arndt daily until discharge from therapy or disc harged from the hospital. Physical Therapy Discharge Recommendations are: Recommended discharge disposition: home with family/caregiver Post discharge physical therapy recommendation: Ongoing PT at SNF to progress to modified inpdt status and practice 16 steps for apartment access. . Equipment Recommendations: front wheeled walker. Patients mobility is significantly impair ed s/p back fusion. Pt. will require FWW prior to d/c. FWW will improve gait stability, decr ease fall risk, and allow for performance of ADL's in the home. Identified Problems Needing Skilled Intervention: s/p L5-S1 TLIF, decreased gait stability and impaired mobilization Planned Interventions: Planned Therapy Interventions: bed mobility training;gait training;t ransfer training;stair trg, reinforcement of lumbar precautions/educ, HEP. Additional Goals: Status: Progressing toward goal Goal Pt. will verbalize and demonstrate good understanding of lumba r precautions/education. Status: Progressing toward goal Goal: Pt. will be modified indpt with bed, transfers and gait using FWW x 200'. Status: Not met Goal: Up/down 1 flight of stairs with 1 rail, cane, SBA-modified in dpt. lan of Care - Franca Narvaez RN - 07/05/2014 10:43 AM PDTProblem: General Plan of Care (Adult, Obstetrics) Goal: Care Plan Shift Summary & Review . Discharge Planning: Spoke with patient at bedside. She lives alone and does not feel safe g oing home. There are sixteen steps up to her house. She has no preference regarding rehab fa cilities. Patient choice form signed. Referrals made to all three facilities (per Layne). Tigist olsenbrandee is requesting a FWW with a seat due to lack of endurance. When patient is walking in [facility] with a regular FWW she has to stop frequently and states she feels very weak, like sh e may fall. Patient lives alone. Outpatient prescriptions are filled at [facility] in [facility] [address]. Electronically signed by: Franca Narvaez RN 07/05/2014 10:43 lan of Adilene Layne Rivers - 07/05/2014 10:39 AM PDTFaxed referral to [facility]out and [facility]idia [facility]. [place] : [id number] and [place]: [id number] Electronically signed by: Layne Collado 07/05/2014 10:40 Received a call from [facility]. They can accept Cindy. Received a call from [facility] and they can't accept Cindy. [facility] called and they don't have any beds at this time Electronically signed by: Layne Collado 07/05/2014 12:22 Started the SNF packet. Electronically signed by: Layne Collado 07/05/2014 12:56 lan of [facility] Sandhya Benites RN - 07/05/2014 5:14 AM PDTProblem: General Plan of Care (Adult, Obstetrics) Goal: Care Plan Shift Summary & Review . Outcome: Progressing Patient continues to have high level of pain. CPAP during HS. Dried drainage to lower band aids on back. Calling appropriately. Able to use bedside commode once for 650. Attempts to v oid in bedside commode after that failed, patient c/o retention. PVR for >1000, straight cat h performed and 1100 mL kavitha urine obtained. Patient tolerated well, sleeping through most of it and stated feeling better when completed. lan of Care - Yehuda porfirio José Hays RRT - 07/04/2014 11:57 PM PDTProblem: General Plan of Care (Adult, Obstetric s) Goal: Care Plan Shift Summary & Review . On CPAP with 5 LPM bled in sats maintaining will continue to monitor Electronically signed by: José Alvarez RRT 07/04/2014 23:57 lan of Care - Madison Berry Linnette AGRAWAL - 07/04/2014 5:46 PM PDTProblem: General Plan of Care (Adult, Obstetric s) Goal: Care Plan Shift Summary & Review . IRF Occupational Therapy Plan of Care Treatment Note Summary: Pt seen for A/E training sitting at EOB. Completed log roll to EOB Mod I,donned L SO SBA,recited spine precautions with one cue for 10/28. Dressed U/E SBA/dressed L/E with A/E SBA/cues. Pt able to stand/pull pants up to waist SBA with fww. Pt stated pain management is better this pm as it has decreased from a 9/10 to a 6/10 and was very appreciatve of traini ng/education. Pt t/f'd back to bed mod I and sated "wow I got my own legs in bed". Pt very m otivated to participate in tx session. Pt reported she has all the A/E she needs at home and her mother sisters will be providing assistance as needed. Pt resting in bed with call ligh t/tray table w/reach. Occupational Therapy will follow Cindy quinn (see comments) (eval +1 addl ses azeem) until discharge from therapy or discharged from the hospital. Occupational Therapy Discharge Recommendations are: Recommended discharge disposition: home independent;other (see comments) (will have assist from sister(s) as needed initially) Post discharge occupational therapy recommendation: (none anticipated at this time; TBD) Equipment Recommendations: tub bench;hand held shower head;crew supervisor;comfort height toilet ( pt. has all necessary equipment) Planned Interventions: ADL retraining;transfer training Patient Status/Goals Reflects last filed data of patient status; may be from multiple contributors. Grooming: Status: did not occur today Assist: Utilizes: STG: Status: New Goal:modified independent LTG: Status: Goal: UE Dressing: Status: SBA Assist: Utilizes: STG: Status: Goal: LTG: Status: Goal: LE Dressing: Status: SBA Utilizes: crew supervisor STG: Status: New Goal: modified independent LTG: Status: Goal: Toileting: Status: did not occur today Assist: Utilizes: STG: Status: New Goal: modified independent LTG: Status: Goal: Transfers: Toilet Transfer Status: did not occur today Assist: Utilizes: STG: Status: New Goal: modified independent LTG: Status: Goal: lan of Care - Heather Evans, PT - 07/04/2014 12:22 PM PDTProblem: General Plan of Care (Adult, Obstetrics) Goal: Care Plan Shift Summary & Review . Physical Therapy Plan of Care Treatment Note Summary: Pt. c/o poor pain mgmt. Has been up for meals but not walking since yesterday wit h PT. Reluctant to participate "I am do for a pain pill in 30'", agreeable to walk as able a nd to t/f to chair for lunch. SBA with increased time/effort sidelying to sit at EOB. Donned LSO indpt., stood to FWW, modified inpdt, cues to avoid trunk flexion. Ambulated x 12' with FWW, then needing to sit and declined further activity. Gait steady using own FWW, SBA toda y, but activity limited due to pain c/o. Will need to practice steps in a.m. Physical Therapy will follow Cindy Arndt daily until discharge from therapy or disc harged from the hospital. Physical Therapy Discharge Recommendations are: Recommended discharge disposition: home with family/caregiver Post discharge physical therapy recommendation: HEP walking program; HH Equipment Recommendations: front wheeled walker. Pt. Has FWW, now in room. Identified Problems Needing Skilled Intervention: s/p L5-S1 TLIF, decreased gait stability and impaired mobilization Planned Interventions: Planned Therapy Interventions: bed mobility training;gait training;t ransfer training; stair trg, reinforcement of lumbar precautions/educ, HEP. Patient Status/Goals: Reflects last filed data of patient status; may be from multiple contributors. Goals: Status: Progressing toward goal Goal Pt. will verbalize and demonstrate good understanding of lumba r precautions/education. Status: Continued Goal: Pt. will be modified indpt with bed, transfers and gait using FWW x 200'. Status: Continued Goal: Up/down 1 flight of stairs with 1 rail, cane, SBA-modified in dpt. lan of Care - Spike Mora RN - 07/04/2014 8:28 AM PDTProblem: General Plan of Care (Adult, Obstetrics) Goal: Care Plan Shift Summary & Review . Outcome: Progressing Assisted to the bathroom with SBA, following lumbar precautions. Independent with bed mobil ity. Pt has been using PROFESSOR OF PHILOSOPHY and pain pills during the night. Zofran was given for nausea. MARI drain with minimal drainage. Band aid on back in place. lan of Care - Sonal Segovia RRT - 07/04/2014 5:38 AM PDTProblem: General Plan of Care (Adult, Obstetrics) Goal: Care Plan Shift Summary & Review . Outcome: Progressing Patient on 2 lpm cannula or CPAP with 5 lpm bleed in through night. SPO2 93-07%. Breath so unds are clear. lan of Care - Maria T Vidal RN - 07/03/2014 4:37 PM PDTProblem: General Plan of Care (Adult, Obstetrics) Goal: Care Plan Shift Summary & Review . Outcome: Progressing Up with P.T. FWW,was up to bathroom and void 800cc, she then was unable to go again for 3 t imes, with PVR>999, a riley was put in and 2300cc of urine was the output. has gone down to X-ray for post-op. Sitting up in chair at this time. lan of Care - Jesse tong, Marielle Hurst RN - 07/03/2014 3:24 PM PDTProblem: General Plan of Care (Adult, Obstetrics) Goal: Care Plan Shift Summary & Review . I spoke to patient regarding dc plans and needs. She lives by herself in a small apartment in [place]. Patient states she has her apartment set up for her recovery. Her mother is br inging in a walker for her tomorrow. She has an elevated toilet seat and a transfer bench. S he is trying to find a friend to stay with her during her recovery. She has been on O2 for l ow oximetry's since surgery. If she should need any DME ordered upon discharge she would lik e it to come from [facility] in [place]. She states the Said she might benefit fr Home Health upon discharge. She would like me to contact [facility] to giv e them a heads up. I called and spoke to Summer at [facility] , told her patients PCP i s Natalee Andersen and faxed the referral to . Electronically signed by: Marielle Patino RN 07/03/2014 15:24 lan of Care - Heather Brar, PT - 07/03/2014 11:56 AM PDTProblem: General Plan of Care (Adult, Obstetrics) Goal: Care Plan Shift Summary & Review . Physical Therapy Plan of Care Initial Evaluation;Treatment Note Summary: Pt. resting in bed on arrival, used PROFESSOR OF PHILOSOPHY x 2 during session. SPL 5/10. Pt. hoping to urinate gravity meter operator to straight cath. Sidelying to sit at EOB with SBA and cues, increased time /effort. Mod A to don LSO. CGA to stand to FWW and SBA for gait with walker x 120'. Used bat hroom and able to urinate prior to walk. Sat in bedside chair for lunch. All equipment repla lorena and in reach. Mobility slow and cautious, steady, will likely need FWW at d/c. PT to see in a.m. to progress mobility toward modified indpt status. Physical Therapy will follow Cindy Arndt daily until discharge from therapy or disc harged from the hospital. Physical Therapy Discharge Recommendations are: Recommended discharge disposition: home with family/caregiver Post discharge physical therapy recommendation: HEP walking program Equipment Recommendations: front wheeled walker Identified Problems Needing Skilled Intervention: s/p L5-S1 TLIF, decreased gait stability and impaired mobilization Planned Interventions: Planned Therapy Interventions: bed mobility training;gait training;t ransfer training;stair trg, reinforcement of lumbar precautions/educ, HEP Patient Status/Goals: Reflects last filed data of patient status; may be from multiple contributors. Goals: Status: New Goal Pt. will verbalize and demonstrate good understanding of lumba r precautions/education. Status: New Goal: Pt. will be modified indpt with bed, transfers and gait using FWW x 200'. Status: New Goal: Up/down 1 flight of stairs with 1 rail, cane, SBA-modified in dpt. lan of Care - Nikki Braga OT - 07/03/2014 10:08 AM PDTProblem: General Plan of Care (Adult, Obstetrics) Goal: Care Plan Shift Summary & Review . Occupational Therapy Plan of Care Initial Evaluation Note Summary: Pt. seen for initial eval. Pt. did attend spine class and has performed good pre paration at home prior to surgery. Pt. demos good understanding of precautions and post-op activity. Has all home equip in place. Reports has sisters available to assist w/ home mgm t and supervision w/ bathing. Pt. currently is experiencing increased pain and was limited in therapy participation. Pt. did report she had been sitting up and had used BR this a.m., however. Recommend 1 addl OT session to ensure independence w/ AE for LB dressing and func tional transfers for return home alone. Occupational Therapy will follow Cindy Arndt other (see comments) (eval +1 addl ses azeem) until discharge from therapy or discharged from the hospital. Occupational Therapy Discharge Recommendations are: Recommended discharge disposition: home independent;other (see comments) (will have assist from sister(s) as needed initially) Post discharge occupational therapy recommendation: (none anticipated at this time; TBD) Equipment Recommendations: tub bench;hand held shower head;crew supervisor;comfort height toilet ( pt. has all necessary equipment) Identified Problems Needing Skilled Intervention: Debility Planned Interventions:Planned Therapy Interventions: ADL retraining;transfer training Patient Status/Goals Reflects last filed data of patient status; may be from multiple contributors. Grooming: Status: did not occur today Assist: Utilizes: Goal status: New Goal: modified independent LE Dressing: Status: did not occur today Assist: Utilizes: Goal status: New Goal: modified independent Toileting: Status: did not occur today Assist: Utilizes: Goal status: New Goal: modified independent Transfers: Toilet Transfer Status: did not occur today Assist: Utilizes: Goal status: New Goal: modified independent lan of Spike Hyatt RN - 07/03/2014 5:32 AM PDTProblem: General Plan of Care (Adult, Obstetrics ) Goal: Care Plan Shift Summary & Review . Outcome: Progressing Pt using PROFESSOR OF PHILOSOPHY and PO pain pills, c/o numbness on bilateral legs from her feet up to below he r knees. Muscle straight 4/5 on all extremities. One person SBA with ambulation, uses FWW an d LSO brace when walking. Following lumbar precautions. C-PAP on during the night, requires 2L/min of oxygen when not on C-PAP. MARI drain with moderate amount of bloody drainage.Five ba nd aids on back one with minimal amount of drainage. lan of Spike Woodward ra, RN - 07/03/2014 4:25 AM PDTStraight cath completed with sterile technique, 140 0 cc of clear yellow urine output. Repositioned to right side. lan of Isaac Medina RRT - 07/03/2014 12:14 AM PDTProblem: General Plan of Care (Adult, Obstetrics) Goal: Care Plan Shift Summary & Review . Outcome: Not Progressing The patient is currently on her Home CPAP. She is on 2 L/Min when off the CPAP. She is mervat r throughout and on a continuous oximeter for her PROFESSOR OF PHILOSOPHY. She was unable to do her IS because o f the medications. She has the IS at bedside with a goal of 2400. She did not require additi onal respiratory care throughout the evening. p Note - Frandy Teresa, DO - 07/02/2014 2:25 PM PDTDATE: 07/02/2014 SURGEON: Frandy Teresa MD. FITTING ROOM CHECKER: ZANE Oh PREOPERATIVE DIAGNOSES 1. Spondylolisthesis, L5-S1. 2. Spinal stenosis, L5-S1. 3. Lumbosacral radiculopathy. 4. Lumbago. POSTOPERATIVE DIAGNOSES 1. Spondylolisthesis, L5-S1. 2. Spinal stenosis, L5-S1. 3. Lumbosacral radiculopathy. 4. Lumbago. PROCEDURES PERFORMED 1. Combined posterior interbody and posterolateral arthrodesis L5-S1. 2. Posterior spinal instrumentation L5-S1. 3. PEEK interbody at L5-S1. 4. Laminectomies L5, S1. 5. Facetectomy L5-S1. 6. Use of intraoperative microscope for microdissection. 7. Coregistration for neuro navigation of the spine. ESTIMATED BLOOD LOSS: 100 mL. ANESTHESIA: General endotracheal anesthesia. FINDINGS: Spondylolisthesis L5-S1. DRAINS: MARI. COMPLICATIONS: None. DISPOSITION: The patient stable to the PACU. INDICATION FOR THE PROCEDURE: Ms. Arndt is a 58-year-old woman who presents with signs, sy mptoms, and radiographic evidence of spondylolisthesis L5-S1. MRI and dynamic x-rays of the lumbar spine revealed the pathology. Given her symptoms, the patient decided to proceed with transforaminal lumbar interbody fusion L5-S1. SURGICAL RISKS: The patient was well-appraised of all objectives, benefits, risks, and pote ntial complications of the procedure including, but not limited to, worsening of his current status, possible need for further procedures, risk of infection, headache, CSF leak, possib le spinal nerve injury resulting in paralysis, injury to major vessels causing hemorrhage, s troke, loss of language function, and even . No assurance was given whether symptoms wo uld improve following the procedure. Informed consent was obtained and secured in the chart after the patient voiced understanding of these risks and decided to proceed with the operat ion. DESCRIPTION OF PROCEDURE: The patient was transferred to operating room #2. She was given p reoperative prophylactic IV antibiotics. The patient was sedated and intubated without diffi culty by the anesthesia service. Eyes were taped shut after ointment was applied to prevent corneal abrasion. Sanya Hugger was placed over the upper and lower body to maintain control o f core body temperature. Riley catheter was not inserted. The patient was turned prone on Ja ckson table. All pressure points were carefully padded. OPERATIVE TECHNIQUE: The patient was prepped and draped in standard sterile fashion. The O- arm was draped sterilely and brought into the operative field. Levels of interest, which wer e L5 and S1, were targeted and an intraoperative scan with O-arm was performed for the purpo ses of coregistration with the Stealth navigation system. Using the Stealth probe, appropriate incisions bilaterally were outlined to allow for optim al pedicle screw placement, laminectomies, and facetectomy. The skin was marked with a marking pen along the planned incision and this was infiltrated with 0.25% Marcaine with epinephrine. The marked incision was opened sharply with a #10 blad e on the right side. The Stealth navigation probe was used to align a proper trajectory in t he L5 and S1 pedicles bilaterally. Tissue protector was slid over the probe and awl-TAP comb ination device was used to cannulate the pedicles at L5 and S1 on the right. Then, 7.5 mm x 55 mm Sextant Solera pedicle screws were then placed into the pedicles on the right at L5 an d 8.5 mm x 50 mm at the right S1 level. Next attention was turned to the left side where the same procedure ensued. The appropriate incision was marked with 0.25% Marcaine with epinephrine. This was opened sharply with a #1 0 blade and the Stealth navigational probe was used to find the appropriate trajectory into the pedicles at the left L5 and S1 level. The tissue protector was slid over the probe, and awl-TAP combination device was used to cannulate the pedicles, then guidewires were left in place and snapped to the drape at the L5 and S1 pedicles on the left. The Stealth navigation probe was used to target the facet joint on the left side at L5-S1. This was dilated up to 22 mm and a 22 mm x 9 cm retractor was docked at the facet joint at L 5-S1. The microscope was draped sterilely and brought into the operative field, and the soft tissues were cleared away from the bone. Next, using high speed electric drilling, the facet joint at L5-S1 was resected. The patien t's bone dust was saved in a bone trap. The tube was then tilted superiorly and the inferior lamina of L5 was resected with high speed drilling down to the level of the ligamentum flav um, and then the tube was tilted inferiorly, and the superior lamina of S1 was resected with high speed electric drilling down to the level of the ligamentum flavum. Next, the ligamentum flavum was uplifted and epidural space was encountered. The disk space at L5-S1 was reached. The S1 nerve and thecal sac were gently retracted, and an annulotomy was performed with a #11 scalpel blade. The diskectomy was carried out using a series of end plate ryan, curettes, and rongeurs. Endplates were prepared and rasped to expose bleeding subchondral bone. The disk space was then packed with cancellous bone chips. Next, a 8 mm x 26 mm Capstone PEEK cage from [employer] was chosen. It was filled with Infus e and the patient's own autograft. It was tamped into the disk space under navigational guid ance. The traversing and exiting nerve roots were found to be completely decompressed. Hemostasis was achieved and Gelfoam placed was placed over the neural elements, and the pat ient's own autograft was placed on top of the Gelfoam. The tubular retractor was then remove d. Next, attention was turned to the guidewires on the left at the L5 level and S1 level, a 7. 5 mm x 50 mm pedicle screw was inserted at L5 and 8.5 mm x 50 mm at S1. The screw extenders were interconnected bilaterally, and the measuring device was used to determine the appropri ate size rods. A 45 mm rajesh was selected for the right side, and a 40 mm rajesh was selected for the left side. More cephalad transverse incisions were made bilaterally, and the rods were passed into the screw extenders. They were then reduced down and set screws were placed and torqued to the manufacture's recommended torque. The screw extenders were then removed bilaterally. Final A P and lateral fluoroscopy revealed ideal placement of all hardware. Hemostasis was meticulou sly achieved. Bi-Perera drain was placed on the patient's left side. The incisions were closed with 2-0 interrupted Vicryl in buried fashion, and the skin was r eapproximated with Mastisol and Steri-Strips. Band-Aids were placed over all the wounds. All sponge counts, needle counts, and instrument counts were correct at the end of the case x2. The patient tolerated the procedure well without any complication, and was transferred in s table condition to the recovery room. rief Op Note - Frandy Mina DO - 07/02/2014 2:22 PM PDT Brief Operative Note Cindy Arndt 58 y.o. female 1955 [id number] Proc. Date 07/02/2014 Preop Dx Spondylolisthesis L5-S1 Postop Dx same Procedure Procedure(s):MIS L5-S1 TRANSFORAMINAL LUMBAR INTERBODY FUSION Anesthesia General Surgeon Frandy Teresa DO [employer] Bi Developer ZANE Oh EBL 100 mL Findings Findings consistent with scheduled procedure. No other abnormalities found. Complications none Specimens * No specimens in log * Drains Electronically signed by: Frandy Teresa DO 07/02/2014 14:22 [facility] documented in this en counter Plan of Treatment +--------+ + + + + | Date | Type | Specialty | Care Team | Description | +--------+ + + + + | 06/12/ | Procedure | Cardiology | Dora De La Torre | | | 2019 | visit | | [address] | | | | | | [address] | | | | | | [place] [address] | | | | | | [phone] | | | | | | | | +--------+ + + + + | 08/28/ | Office | Cardiology | Dora De La Torre | | | 2019 | Visit | | [address] | | | | | | [address] | | | | | | [place] [address] | | | | | | [phone] | | | | | | | [...] | | POC | | | [facility] | | | | | | [facility] [...] + | [facility] | [address] | [place], [place] | [phone] | | [facility] | | [address] | | | - LABORATORY | | | | + + + + + | [facility] | [address] | [place] | | | [facility] | | [address] [place] [address] | | | - LABORATORY | | [...] + | [facility] | [address] | [place] | [phone] | | [facility] | | [address] | | | - LABORATORY | | | | + + + + + | [facility] | [address] | [place] | | | [facility] | | [address], [facility] | | | - LABORATORY | | [...] | | POC | | | [facility] | | | | | | [...] + | [facility] | [address] | [place] | [phone] | | [facility] | | [address] | | | - LABORATORY | | | | + + + + + | [facility] | [address] | [place], [place] | | | [facility] | | [address] | | | - LABORATORY | | [...] | | POC | | | [facility] | | | | | | MEDICAL [...] + | [facility] | [address] | [place], [place] | [phone] | | [facility] | | [address] | | | - LABORATORY | | | | + + + + + | [facility] | [address] | [place], [place] | | | [facility] | | [address], [facility] | | | - LABORATORY | | | | + + + + + POC Glucose (07/04/2014 5:55 PM PDT) + +-------+ + + + | Component | Value | Ref Range | Performed | Pathologist | | | | | At | Signature | + +-------+ + + + | Glucose, | 119 | 79 - 150 mg/dL | [facility] | | | POC | | | [facility] | | | | | | MEDICAL [...] [address] | [place] | [phone] | | [facility] | | [address] | | | - LABORATORY | | | | + + + + + | [facility] | [address] | [place] | | | [facility] | | [address], [facility] | | | - LABORATORY | | [...] | | POC | | | [facility] | | | | | | MEDICAL [...] + | [facility] | [address] | [place] | [phone] | | [facility] | | [address] | | | - LABORATORY | | | | + + + + + | [facility] | [address] | [place], [place] | | | [facility] | | [address], [facility] | | | - LABORATORY | | [...] [address] | [place] | [phone] | | [facility] | | [address] | | | - LABORATORY | | | | + + + + + | [facility] | [address] | [place] | | | [facility] | | [address] | | | - LABORATORY | | [...] + | [facility] | [address] | [place] | [phone] | | [facility] | | [address] | | | - LABORATORY | | | | + + + + + | [facility] | [address] | [place] | | | [facility] | | [address], [facility] | | | - LABORATORY | | | | + + + + + POC Glucose (07/03/2014 4:25 PM PDT) + +-------+ + + + | Component | Value | Ref Range | Performed | Pathologist | | | | | At | Signature | + +-------+ + + + | Glucose, | 146 | 79 - 150 mg/dL | [facility] | | | POC | | | [facility] | | | | | | MEDICAL [...] + | [facility] | [address] | [place] | [phone] | | [facility] | | [address] | | | - LABORATORY | | | | + + + + + | [facility] | [address] | [place], [place] | | | [facility] | | [address] | | | - LABORATORY | | [...] | of hardware for posterior fusion from E2bsgeskz S1 with interbody hardware at L5-S1. The [...] + | MISCELLANEOUS LAB | | | [phone] | + +---------+ + + | MISCELANIOUS LAB | | | [phone] | + +---------+ + + POC Glucose [...] + | [facility] | [address] | [place], [place] | [phone] | | [facility] | | [address] | | | - LABORATORY | | | | + + + + + | [facility] | [address] | [place] | | | [facility] | | [address] [place] [address] | | | - LABORATORY | | [...] + | [facility] | [address] | [place] | [phone] | | [facility] | | [address] | | | - LABORATORY | | | | + + + + + | [facility] | [address] | [place] | | | [facility] | | [address], [facility] | | | - LABORATORY | | [...] | | POC | | | [facility] | | | | | | MEDICAL [...] + | [facility] | [address] | [place] | [phone] | | [facility] | | [address] | | | - LABORATORY | | | | + + + + + | [facility] | [address] | [place] | | | [facility] | | [address], [facility] | | | - LABORATORY | | | | + + + + + POC Glucose (07/02/2014 5:04 PM PDT) + +-------+ + + + | Component | Value | Ref Range | Performed | Pathologist | | | | | At | Signature | + +-------+ + + + | Glucose, | 124 | 79 - 150 mg/dL | [facility] [...] + | [facility] | [address] | [place], [place] | [phone] | | [facility] | | [address] | | | - LABORATORY | | | | + + + + + | [facility] | [address] | [place], [place] | | | [facility] | | [address] | | | - LABORATORY | | | | + + + + + POC Glucose (07/02/2014 10:33 AM PDT) + +-------+ + + + | Component | Value | Ref Range | Performed | Pathologist | | | | | At | Signature | + +-------+ + + + | Glucose, | 102 | 79 - 150 mg/dL | [facility] [...] | + + + + + | [facility] | [address] | [place] | [phone] | | [facility] | | [address] | | | - LABORATORY | | | | + + + + + | [facility] | [address] | [place] | | | [facility] | | [address], [facility] | | | - LABORATORY | | [...] [facility] | | | | | | [facility] | | | | | | MEDICAL | | | | | | CENTER - | | | | | | BLOOD BANK | | + + + + + + | Rh Type | Negative | | [facility] | | | | | | [facility] | | [...] | + + + + + | [facility] | [address] | [place] | | | [facility] | | [address] | | | - BLOOD BANK | [...] mLs | | Surgical | | 1:200,000 0.25-1:159504 % | | 14 12:42 | | [...]
--- OUTSIDE RECORDS SUMMARY | ~2020-05-13 | XMS | Encounter Summary ---
Demographics + + + | Address | [address] | | | [place] [address] | + + + | Home Phone | | + + + | Preferred Language | Unknown | + + + | Marital Status | | + + + | Anabaptist Affiliation | 1013 | + + + | Race | Unknown | + + + | Ethnic Group | Unknown | + + + Author + + + | Author | [facility] | | | and [place] | + + + | Organization | [facility] | | | and [place] | + + + | Address | Unknown | + + + | Phone | Unavailable | + + + Support + + + + + | Name | Relationship | Address | Phone | + + + + + | Araceli Sibley | ECON | [place] | | | | | [address] | | + + + + + Care Team Providers + +------+ + | Care Cigar Packer And Sorter Name | Role | Phone | + +------+ + | Hari Samson DO | PCP | | + +------+ + Reason for Visit + +--------+ + | Reason | Onset | Comments | | | Date | | + +--------+ + | Patient Concerns | 02/06/ | | | | 2019 | | + +--------+ + Encounter Details +--------+ + + + + | Date | Type | Department | Care Team | Description | +--------+ + + + + | 02/06/ | Telephone | [facility] | Roxannmiguel ángelDora | Patient Concerns | | 2020 | | CARDIOLOGY [place] | [address] | | | | | [address] | [address] | | | | | [address] | [place] [address] | | | | | [place] | [phone] | | | | | [address] | | | | | | [phone] | | | +--------+ + + + [...] this encounter Miscellaneous Notes Telephone Encounter - Dora De La Torre FNP - 02/07/2020 3:21 PM PDTSee other note. El ectronically signed by CAROLINE Tsai at 02/07/2020 3:22 PM PDTdocumented in this encounter Plan of Treatment +--------+ [...] [address] | | | | | | [place] [address] | | | | | | [phone] | | | | | | | | +--------+ + + + + | 08/28/ | Office | Cardiology | Dora De La Torre | | 2019 | Visit | | [address] | | | | | | [address] | | | | | | [place] [address] | | | | | | [phone] | | | | | | | | +--------+ + + + + documented as of this encounter Visit Diagnoses Not on filedocumented in this encounter"
--- OUTSIDE RECORDS SUMMARY | ~2020-05-13 | XMS | Encounter Summary ---
Demographics + + + | Address | [address] | | | [place] [address] | + + + | Home Phone [...] [place] | | | | | [address] | | + + + + + Care Team Providers + +------+ + | Care Bridge Painter Helper Name | Role | Phone | + +------+ + | Natalee Andersen NP | PCP | | + +------+ + Reason for Visit +--------+--------+ + | Reason | Onset | Comments | | | Date | | +--------+--------+ + | Other | 01/02/ | 6m x-ray | | | 2014 | | +--------+--------+ + Encounter Details +--------+ + + + + | Date | Type | Department | Care Team | Description | +--------+ + + + + | 01/02/ | Telephone | [facility] | Frandy Teresa, | Other (6m x-ray ) | | 2015 | | NEUROSURGERY [address] | DO [address] | | | | | [address] | [address] [place], [place] | | | | | [place], [place] | [id number] | | | | | [address] | | | | | | [phone] | | | +--------+ + + + [...] Encounter - Shayne Aragon Cert MA - 01/02/2015 11:08 AM PDTI called to remind Tj cornejoia to complete her 6m x-ray for review. The [facility] today. She will let us know when this has been completed. SHAYNE ARAGON documented in this encounter Plan of Treatment [...] [address] | | | | | | [place] [address] | | | | | | [phone] | | | | | | | | +--------+ + + + + | 08/28/ | Office | Cardiology | Dora De La Torre | | | 2019 | Visit | | [address] | | | | | | [address] | | | | | | [place] [address] | | | | | | [phone] | | | | | | | | +--------+ + + + + documented as of this encounter Visit Diagnoses Not on filedocumented in this encounter"
--- OUTSIDE RECORDS SUMMARY | ~2020-05-13 | XMS | Encounter Summary ---
Demographics + + + | Address | [address] | | | [place] [address] | + + + | Home Phone [...] + | Araceli Sibley | ECON | [place], [place] | | | | | [address] | | + + + + + Care Team Providers + +------+ + | Care Edi Architect Name | Role | Phone | + +------+ + PCP | Unavailable | + +------+ + Encounter Details +--------+ + + + + | Date | Type | Department | Care Team | Description | +--------+ + + + + | 05/29/ | Hospital | [facility] | | | | 1991 | Encounter | [facility] LAB[facility] | | | | | | [address] | | | | | | [place] | | | | | | [address] | | | | | | [phone] | | | +--------+ + + + [...] | | | | | | [place] [address] | | | | | | [phone] | | | | | | | | +--------+ + + + + | 08/28/ | Office | Cardiology | Dora De La Torre | | | 2020 | Visit | | [address] | | | | | | [address] | | | | | | [place] [address] | | | | | | [phone] | | | | | | | | +--------+ + + + + documented as of this encounter Visit Diagnoses Not on filedocumented in this encounter"
--- OUTSIDE RECORDS SUMMARY | ~2020-05-13 | XMS | Encounter Summary ---
Demographics + + + | Address | [address] | | | [place] [address] | + + + | Home Phone | | + + + | Preferred Language | Unknown | + + + | Marital Status | | + + + | Gnosticism Affiliation | 1013 | + + + [...] [place] | | | | | [address] | | + + + + + Care Team Providers + +------+ + | Care Analytics Analyst Name | Role | Phone | [...] + + | 09/10/ | Documentati | [facility] | Katharine Moncada, | Other (urgent | | 2019 | on | CARDIOLOGY [place] | Technologist | report) | | | | [address] | | | | | | [place] | | | | | | [address] | | | | | | [phone] | | | +--------+ + + + [...] | | | | | [place] [address] | | | | | | [phone] | | | | | | | | +--------+ + + + + | 08/28/ | Office | Cardiology | Dora De La Torre | | | 2020 | Visit | | [address] | | | | | | [address] | | | | | | [place] [address] | | | | | | [phone] | | | | | | | | +--------+ + + + + documented as of this encounter Visit Diagnoses Not on filedocumented in this encounter"
--- OUTSIDE RECORDS SUMMARY | ~2020-05-13 | XMS | Encounter Summary ---
Demographics + + + | Address | [address] | | | [place] [address] | + + + | Home Phone | | + + + | Preferred Language | Unknown | + + + | Marital Status | | + + + | Restoration Affiliation | 1013 | + + + | Race | Unknown | + + + | Ethnic Group | Unknown | + + + Author + + + | Author | [facility] | | | and [place] | + + + | Organization | [facility] | | | and [place] | + + + | Address | Unknown | + + + | Phone | Unavailable | + + + Support + + + + + | Name | Relationship | Address | Phone | + + + + + | Araceli Sibley | ECON | [place], [place] | | | | | [address] | | + + + + + Care Team Providers + +------+ + | Care Mobile Device Engineer Name | Role | Phone | [...] | | | | | | [address] [facility] | | | | | | [place], [place] | | | | | | [address] | | | | | | [phone] | | | +--------+ + + + [...] | | | | | [place] [address] | | | | | | [phone] | | | | | | | | +--------+ + + + + | 08/28/ | Office | Cardiology | Dora De La Torre | | | 2020 | Visit | | [address] | | | | | | [address] | | | | | | [place] [address] | | | | | | [phone] | | | | | | | | +--------+ + + + + documented as of this encounter Visit Diagnoses Not on filedocumented in this encounter"
--- OUTSIDE RECORDS SUMMARY | ~2020-05-13 | XMS | Encounter Summary ---
Demographics + + + | Address | [address] | | | [place] [address] | + + + | Home Phone [...] + + + | Author | [facility] | | | and [place] | + + + | Organization | [facility] | | | and [place] | + + + | Address | Unknown | + + + | Phone | Unavailable | + + + Support + + + + + | Name | Relationship | Address | Phone | + + + + + | Araceli Sibley | ECON | [place], [place] | | | | | [address] | | + + + + + Care Team Providers + +------+ + | Care Hop Worker Name | Role | Phone | + +------+ + PCP | Unavailable | + +------+ + Encounter Details +--------+ + + + + | Date | Type | Department | Care Team | Description | +--------+ + + + + | 07/17/ | Hospital | [facility] | | | | 1997 | Encounter | MED [facility] EM[facility] | | | | | | [address] | | | | | | [place] | | | | | | [address] | | | | | | [phone] | | | +--------+ + + + [...] | | | | | [place] [address] | | | | | | [phone] | | | | | | | | +--------+ + + + + | 08/28/ | Office | Cardiology | Dora De La Torre | | | 2020 | Visit | | [address] | | | | | | [address] | | | | | | [place] [address] | | | | | | [phone] | | | | | | | | +--------+ + + + + documented as of this encounter Visit Diagnoses Not on filedocumented in this encounter"
--- OUTSIDE RECORDS SUMMARY | ~2020-05-13 | XMS | Encounter Summary ---
Demographics + + + | Address | [address] | | | [place] [address] | + + + | Home Phone [...] [place] | | | | | [address] | | + + + + + Care Team Providers + +------+ + | Care Family Practice Doctor Name | Role | Phone | + [...] | | | spondylolist | | [address] | | | | | [place]sis | | [place], | | | | | Spinal | | [place] [address] | | | | | stenosis, | | Phone: | | | | | lumbar | | [phone] | | | | | region, | | Fax: | | | | | without | | [phone] | | | | | neurogenic | [...] | | | | | | | [place] | | | | | | [...] | | | | | | [place] | | | | | | | [...] | | | | | | [place] | | | | | | | [...] | | | | | [address] | [address] [place] | | | | | [place] | [phone] | | | | | [address] | | | | | | [phone] | | | +--------+ + + + [...] Easy mask AW. DL times one with [facility] easy view | | | 2 | Intubation | | | | 2 | | | | | 6 | | | +----+---+ + + | | 1 | AN Bite | | | | 2 | Block | | | | 2 | | | | | 7 | | | +----+---+ + + | | 1 | [place] | | | | 2 | 43-degrees | | | | 3 | | | | | 1 | | | +----+---+ + + | | 1 | [place] off | | | | 4 | [...] EVALUATION Cindy Arndt 58 y.o. female 1955 [id number] Procedure: Procedure(s):MIS L5-S1 TRANSFORAMINAL LUMBAR INTERBODY FUSION [...] by Zen Mccord MD 07/02/2014 14:[address] [facility] nesthesia Preproc edure Evaluation - Zen Mccord MD - 07/02/2014 8:36 AM PDTFormatting of this note m ight be different from the original. ANESTHESIA PREANESTHESIA EVALUATION Cindy Arndt 58 y.o. female 1955 [id number] Scheduled procedure LAMINECTOMY PLIF/TLIF INSTRUMENTATION [184] - MIS L5-S1 TRANSFORAMINAL LUMBAR INTERBODY FUSION Medical history, anesthesia, medications, allergy histories reviewed. ECG reviewed. Labs reviewed. ROS / Med History Ane (+) PONV. NPO status verified. CV (+) hypertension.(-) CAD, past [place], CHF, congenital heart disease, pulmonary hypertension, p [...] [address] | | | | | | [place] [address] | | | | | | [phone] | | | | | | | | +--------+ + + + + | 08/28/ | Office | Cardiology | Dora De La Torre | | | 2019 | Visit | | [address] | | | | | | [address] | | | | | | [place] [address] | | | | | | [phone] | | | | | | | [...] | | | | to Incision, Starting 07/02/14 | | | | | | | [...] | | | PRN, Starting Tue07/02/14 at 1300, | | 14 1:44 | [...] 12:24 | | | | | Starting 07/02/14 at 1224, | | PM PDT | [...]
--- OUTSIDE RECORDS SUMMARY | ~2020-05-13 | XMS | Encounter Summary ---
Demographics + + + | Address | [address] | | | [place] [address] | + + + | Home Phone | | + + + | Preferred Language | Unknown | + + + | Marital Status | | + + + | Restorationism Affiliation | [id number] | + + + | Race | Unknown | + + + | Ethnic Group | Unknown | + + + Author + + + | Author | [facility] | | | and [place] | + + + | Organization | [facility] | | | and [place] | + + + | Address | Unknown | + + + | Phone | Unavailable | + + + Support + + + + + | Name | Relationship | Address | Phone | + + + + + | Aarceli Sibley | ECON | [place] | | | | | [address] | | + + + + + Care Team Providers + +------+ + | Care Ambulance Paramedic Name | Role | Phone | + +------+ + | Natalee Andersen NP | PCP | | + +------+ + Encounter Details +--------+ + + + + | Date | Type | Department | Care Team | Description | +--------+ + + + + | 06/25/ | Hospital | [facility] | Frandy Teresa, | Acquired | | 2014 | Encounter | MED CTR XRAY [address] | DO [address] | spondylolisthesis | | | | [place] | [address] [place], [place] | | | | | [place] [address] | [address] | | | | | [phone] | | | +--------+ + + + [...] + + + +---------+ + + | [place]-3 Fatty | Take 1,000 mg by | [...] [place] | | | | | | [place] [address] | | | | | | [phone] | | | | | | | | +--------+ + + + + | 08/28/ | Office | Cardiology | Dora De La Torre | | | 2019 | Visit | | [address] M[address] | | | | | | [place] | | | | | | [place] [address] | | | | | | [phone] | | | | | | | | +--------+ + + + + documented as of this encounter Visit Diagnoses + + | Diagnosis | + + | Acquired spondylolisthesis | + + documented in this encounter"
--- OUTSIDE RECORDS SUMMARY | ~2020-05-13 | XMS | Encounter Summary ---
Demographics + + + | Address | [address] | | | [place] [address] | + + + | Home Phone [...] [place], [place] | | | | | [address] | | + + + + + Care Team Providers + +------+ + | Care Motor Vehicle Compliance Analyst Name | Role | Phone | + +------+ + PCP | Unavailable | + +------+ + Encounter Details +--------+ + + + + | Date | Type | Department | Care Team | Description | +--------+ + + + + | 06/07/ | Hospital | [facility] | | | | 1991 - | Encounter | MED CTR GENERIC OP | | | | | | CONV DEPT [address] | | | | 10/07/ | | [address], | | | | 1991 | | [place] [address] | | | | | | [phone] | | | +--------+ + + + [...] [address] | | | | | | [place] [address] | | | | | | [phone] | | | | | | | | +--------+ + + + + | 08/28/ | Office | Cardiology | Dora De La Torre | | | 2019 | Visit | | [address] | | | | | | [address] | | | | | | [place] [address] | | | | | | [phone] | | | | | | | | +--------+ + + + + documented as of this encounter Visit Diagnoses Not on filedocumented in this encounter"
--- OUTSIDE RECORDS SUMMARY | ~2020-05-13 | XMS | Encounter Summary ---
Demographics + + + | Address | [address] | | | [place] [address] | + + + | Home Phone [...] [place] | | | | | [address] | | + + + + + Care Team Providers + +------+ + | Care Systems Support Officer Name | Role | Phone | [...] | Frandy Simons DO | [address] | | | | | of skin | [address] | [place], | | | | | sensation | [address] | [place] | | | | | Arthrodesis | [place], [place] | [address] | | | | | status Left | [address] | Phone: | | | | | leg | Phone: | [phone] | | | | | weakness | [phone] | Fax: | | | | | Procedures | Fax: | [phone] | | | | | MRI Lumbar | [phone] | | | | | | Spine [...] [address] | [address] [place], [place] | | | | | [place], [place] | [id number] | | | | | [address] | | | | | | [phone] | | | +--------+ + + + [...] scheduled samson for her MRI here at [facility] on 08/19. SHAYNE ARAGON eleFrandy Diaz DO [...] CANTU | | | | | | [place] [address] | | | | | | [phone] | | | | | | | | +--------+ + + + + | 08/28/ | Office | Cardiology | Dora De La Torre | | | 2020 | Visit | | [address] | | | | | | [address] | | | | | | [place] [address] | | | | | | [phone] | | | | | | | [...] the round structure with high T1 and I0gwccgn in the right L3 vertebral | | [...] + | MISCELLANEOUS LAB | | | [phone] | + +---------+ + + | MISCELANIOUS LAB | | | [phone] | + +---------+ + + documented in [...]
--- OUTSIDE RECORDS SUMMARY | ~2020-05-13 | XMS | Encounter Summary ---
Demographics + + + | Address | [address] | | | [place] [address] | + + + | Home Phone [...] [place] | | | | | [address] | | + + + + + Care Team Providers + +------+ + | Care Cashier And Salesperson Name | Role | Phone | [...] + + | 02/05/ | Telephone | [facility] | Ashley Chávez | Other (Patient | | 2020 | | CARDIOLOGY [place] Abad, Drawer Maker | ) | | | | [address] | | | | | | [place] | | | | | | [address] | | | | | | [phone] | | | +--------+ + + + [...] t week . elephone Enco Ashley Wong, Drawer Maker - 02/06/2020 2:53 PM PDTPatient states that [...] advise. Thank you! (sent to Dora Mendez) JPolloW:SALES SUPPORT CONSULTANT-AAMA. doc umented in this encounter Plan of [...] [address]U | | | | | | [place] [address] | | | | | | [phone] | | | | | | | | +--------+ + + + + | 08/28/ | Office | Cardiology | Dora De La Torre | | | 2019 | Visit | | [address] | | | | | | [place] | | | | | | [facility] [address] | | | | | | [phone] | | | | | | | | +--------+ + + + + documented as of this encounter Visit Diagnoses Not on filedocumented in this encounter
--- OUTSIDE RECORDS SUMMARY | ~2020-05-13 | XMS | Encounter Summary ---
Demographics + + + | Address | [address] | | | [place] [address] | + + + | Home Phone [...] [place] | | | | | [address] | | + + + + + Care Team Providers + +------+ + | Care Flash Drier Operator Name | Role | Phone | + +------+ + | Thierry Fry MD | PCP | | + +------+ + Encounter Details +--------+ + + + + | Date | Type | Department | Care Team | Description | +--------+ + + + + | 03/06/ | Hospital | [facility] | Katharine Cardona PA-C | Essential | | 2015 | Encounter | MED CTR LABORATORY | [address] | hypertension | | | | [address] [place] | [place] [address] | | | | | [place], [place] | [phone] | | | | | [address] | | | | | | [phone] | | | +--------+ + + + [...] 0 | | | | (VITAMIN D-3) [address] | mouth Once a week. | | [...] + + + +---------+ + + | [place]-3 Fatty | Take 1,000 mg by | 60 each | 5 | 03/09/20 | | | Acids (FISH OIL | mouth 2 times daily. | | | 15 | 9 | | CONCENTRATE) 1000 MG | | | | | | | CAPS | | | | | | + + + +---------+ + + | [place]-3 Fatty | Take 1,000 mg by [...] | 06/12/ | Procedure | Cardiology | Isacc De La Torre | | 2019 | visit | | [address] | | | | | | [address] | | | | | | [place] [address] | | | | | | [phone] | | | | | | | | +--------+ + + + + | 08/28/ | Office | Cardiology | Isacc De La Torre | | | 2020 | Visit | | [address] | | | | | | [address] | | | | | | [place] [address] | | | | | | [phone] | | | | | | | [...] [facility] | [facility] | | | | | [facility] | | | | | | [facility] - | | | | | | LABORATORY | | + + + + + + | Anion Gap | 8 | 3 - 16 mmol/L | [facility] | | | | | | [facility] | | [...] 12 | 7 - 18 mg/dL | [facility] | | | | | | [facility] | | | | | | MEDICAL | | | | | | CENTER - | | | | | | LABORATORY | | + + + + + + | Creatinine | 0.66 | 0.60 - 1.30 | [facility] | | | | | mg/dL | [facility] | | | | | | MEDICAL | | | | | | CENTER - | | | | | | LABORATORY | | + + + + + + | eGFR if not | >60Comment: GLOMERULAR | >=60 | [facility] | | | | FILTRATION | mL/min/1.73m2 | [facility] | | | URUGUAYAN | RATE,ESTIMATED | | MEDICAL | | | | mL/min/1.60j6Vflp than | | CENTER - | | [...] | + + + + + | [address] | [address] | [place], [place] | [phone] | | [facility] | | [address] | | | - LABORATORY | | | | + + + + + documented in this encounter Visit Diagnoses + + | Diagnosis | + + | Essential hypertension Unspecified essential hypertension | + + documented in this encounter"
--- OUTSIDE RECORDS SUMMARY | ~2020-05-13 | XMS | Encounter Summary ---
Demographics + + + | Address | [address] | | | [place] [address] | + + + | Home Phone [...] [place] | | | | | [address] | | + + + + + Care Team Providers + +------+ + | Care Storage Architect Name | Role | Phone | [...] + + | 08/15/ | Documentati | [facility] | Katharine Moncada, | Other (urgent | | 2019 | on | CARDIOLOGY [place] | Technologist | report) | | | | [address] | | | | | | [place] | | | | | | [address] | | | | | | [phone] | | | +--------+ + + + [...] | 2020 | visit | | [address]INE Mendze [address] | | | | | | [place] | | | | | | [place] [address] | | | | | | [phone] | | | | | | | | +--------+ + + + + | 08/28/ | Office | Cardiology | Dora De La Torre | | | 2020 | Visit | | [address] | | | | | | [address] | | | | | | [place] [address] | | | | | | [phone] | | | | | | | | +--------+ + + + + documented as of this encounter Visit Diagnoses Not on filedocumented in this encounter"
--- OUTSIDE RECORDS SUMMARY | ~2020-05-13 | XMS | Encounter Summary ---
Demographics + + + | Address | [address] | | | [place] [address] | + + + | Home Phone [...] [place] | | | | | [address] | | + + + + + Care Team Providers + +------+ + | Care Contour Stitcher Name | Role | Phone | + [...] | 09/26/ | Refill | [facility] | Frandy Teresa, | Medication Refill | | 2013 | | NEUROSURGERY [address] | DO [address] | | | | | [facility] | [address] [place], [place] | | | | | [place], [place] | [id number] | | | | | [address] | | | | | | [phone] | | | +--------+--------+ + + + [...] will come today. [facility] Megan Schreiber [facility] at 09/26/2014 3:18 PM PSTTelephone Encou nter - Megan Schreiber RN - [...] [address] | | | | | | [place] [address] | | | | | | [phone] | | | | | | | | +--------+ + + + + | 08/28/ | Office | Cardiology | Dora De La Torre | | | 2019 | Visit | | [address] | | | | | | [address] | | | | | | [place] [address] | | | | | | [phone] | | | | | | | | +--------+ + + + + documented as of this encounter Visit Diagnoses Not on filedocumented in this encounter"
--- OUTSIDE RECORDS SUMMARY | ~2020-05-13 | XMS | Encounter Summary ---
Demographics + + + | Address | [address] | | | [place] [address] | + + + | Home Phone [...] [place], [place] | | | | | [address] | | + + + + + Care Team Providers + +------+ + | Care Window Caser Name | Role | Phone | + +------+ + PCP | Unavailable | + +------+ + Encounter Details +--------+ + + + + | Date | Type | Department | Care Team | Description | +--------+ + + + + | 06/30/ | Hospital | [facility] | | | | 2000 | Encounter | MED CTR EMERGENCY | | | | | | [address] | | | | | | [place] | | | | | | [address] | | | | | | [phone] | | | +--------+ + + + [...] | | | | | [place] [address] | | | | | | [phone] | | | | | | | | +--------+ + + + + | 08/28/ | Office | Cardiology | Dora De La Torre | | | 2020 | Visit | | [address] | | | | | | [address] | | | | | | [place] [address] | | | | | | [phone] | | | | | | | | +--------+ + + + + documented as of this encounter Visit Diagnoses Not on filedocumented in this encounter"
--- OUTSIDE RECORDS SUMMARY | ~2020-05-13 | XMS | Encounter Summary ---
Demographics + + + | Address | [address] | | | [place] [address] | + + + | Home Phone [...] [place], [place] | | | | | [address] | | + + + + + Care Team Providers + +------+ + | Care Clinical Trial Data Manager Name | Role | Phone | + +------+ + PCP | Unavailable | + +------+ + Encounter Details +--------+ + + + + | Date | Type | Department | Care Team | Description | +--------+ + + + + | 04/16/ | [facility] | [facility] | Deon Gonzales | | | 2004 | Encounter | MED CTR SLEEP | MD Laureano [address] | | | | | [place] [address] | [facility] | | | | | [place], [place] | [place] [address] | | | | | [address] | [phone] | | | | | [phone] | | | +--------+ + + + [...] | | | | | [place] [address] | | | | | | [phone] | | | | | | | | +--------+ + + + + | 08/28/ | Office | Cardiology | Dora De La Torre | | | 2019 | Visit | | [address] | | | | | | [address] | | | | | | [place] [address] | | | | | | [phone] | | | | | | | | +--------+ + + + + documented as of this encounter Visit Diagnoses Not on filedocumented in this encounter"
--- OUTSIDE RECORDS SUMMARY | ~2020-05-13 | XMS | Encounter Summary ---
Demographics + + + | Address | [address] | | | [place] [address] | + + + | Home Phone [...] [place], [place] | | | | | [address] | | + + + + + Care Team Providers + +------+ + | Care Felt Hat Mellowing Machine Operator Name | Role | Phone | + +------+ + PCP | Unavailable | + +------+ + Encounter Details +--------+ + + + + | Date | Type | Department | Care Team | Description | +--------+ + + + + | 12/06/ | Hospital | [facility] | | | | 1994 | Encounter | MED CTR LABORATORY | | | | | | [address] | | | | | | [place] | | | | | | [address] | | | | | | [phone] | | | +--------+ + + + [...] | | | | | [place] [address] | | | | | | [phone] | | | | | | | | +--------+ + + + + | 08/28/ | Office | Cardiology | Dora De La Torre | | | 2020 | Visit | | [address] | | | | | | [address] | | | | | | [place] [address] | | | | | | [phone] | | | | | | | | +--------+ + + + + documented as of this encounter Visit Diagnoses Not on filedocumented in this encounter"
--- OUTSIDE RECORDS SUMMARY | ~2020-05-13 | XMS | Encounter Summary ---
Demographics + + + | Address | [address] | | | [place] [address] | + + + | Home Phone [...] [place] | | | | | [address] | | + + + + + Care Team Providers + +------+ + | Care Putty Glazer Name | Role | Phone | + [...] | Transcriptions | + + | Interface, Scrap Iron Loader In - 11/04/2006 3:03 AM PST | | [address] | | [place], [place] [address] [facility] | | ClinicsOPERATION RECORDMed Rec [...] skin retractor was put in place. The Seeley elevators wereused to separate the | | [...]
--- OUTSIDE RECORDS SUMMARY | ~2020-05-13 | XMS | Encounter Summary ---
Demographics + + + | Address | [address] | | | [place] [address] | + + + | Home Phone [...] [place] | | | | | [address] | | + + + + + Care Team Providers + +------+ + | Care Reaming Machine Operator Name | Role | Phone [...] | | | | | | | [address] | | | | | | | Phone: | | | | | | | [phone] | | | | | | | Fax: | | | | | | | [phone] | | +--------+ + + + + + Reason for Visit + + + | Reason | Comments | + + + | Follow-up | 4 Week PO | + + + Encounter Details +--------+---------+ + + + | Date | Type | Department | Care Team | Description | +--------+---------+ + + + | 07/25/ | Office | [facility] | Frandy Teresa, | Lumbar spondylosis | | 2013 | Visit | NEUROSURGERY [address] | DO [address] | (Primary Dx); S/P | | | | [address] | [address] [place], [place] | lumbar fusion | | | | [place], [place] | [address] | | | | | [address] | | | | | | [phone] | | | +--------+---------+ + + + [...] m the original. Frandy Teresa DO [address] [facility], [address] [place] [address] FAX: NEUROSURGERY SURGICAL FOLLOW-UP CHIEF COMPLAINT: Chief [...] Take 15 mg by mouth nightl y. [place]-3 Fatty Acids (FISH OIL CONCENTRATE) 1000 MG [...] [address] | | | | | | [place] [address] | | | | | | [phone] | | | | | | | | +--------+ + + + + | 08/28/ | Office | Cardiology | Dora De La Torre | | | 2019 | Visit | | [address] | | | | | | [address] | | | | | | [place] [address] | | | | | | [phone] | | | | | | | [...] + | MISCELLANEOUS LAB | | | [phone] | + +---------+ + + | MISCELANIOUS LAB | | | [phone] | + +---------+ + + documented in this encounter Visit Diagnoses + + | Diagnosis | + + | Lumbar spondylosis - Primary Lumbosacral spondylosis without myelopathy | + + | S/P lumbar fusion Arthrodesis status | + + documented in this encounter
--- OUTSIDE RECORDS SUMMARY | ~2020-05-13 | XMS | Encounter Summary ---
Demographics + + + | Address | [address] | | | [place] [address] | + + + | Home Phone [...] [place] | | | | | [address] | | + + + + + Care Team Providers + +------+ + | Care Clay Processing Labourer Name | Role | Phone | + [...] + + | 02/26/ | Emergency | [facility] | [place], | CVA (cerebral | | 2015 | | MED CTR EMERGENCY | Davey Simons MD [address] | vascular accident) | | | | CENTER [address] [place] | [facility] | ([facility]) (Primary Dx) | | | | [place], [place] | [place] [address] | | | | | [address] | [phone] | | | | | [phone] | | | +--------+ + + + [...] + + + +---------+ + + | [place]-3 Fatty | Take 1,000 mg by | [...] [facility] Encounter Note [address] [place] [address] PCP:Natalee Andersen [phone] CHIEF COMPLAINT: Chief Complaint Patient presents with Facial Droop ED Room: ED07/ED07 HPI Cindy Arndt is a 59 y.o. female who presents to the Emergency Department accompanied by a friend from [place] for evaluation. The patient recently had symptoms that were diagno sed as stroke or TIA. The symptoms were of a weakness and numbness in her right arm and leg . She was hospitalized for 4 days in [place] for this. She was discharged and subsequent ly has had 2 or 3 emergency department visits in [place] for symptoms diagnosed as TIAs. These have been recurrent and worsening right arm and leg weakness and then today with some right facial drooping and drooling. She is on Aggrenox. She had a full workup in [place] including brain CT, brain MRI, and carotid [...] Laterality: N/A; Surgeon: Frandy castellanos DO; Location: [facility] MAIN OR CURRENT MEDICATIONS Discharge Medication [...] or Severe Contraindications. Consult references such as [employer] for furthe r information. Magnesium 250 MG [...] or Severe Contraindications. Consult references such as [employer] for further information. Multiple Vitamins-Minerals (CENTRUM SILVER PO) Take 1 tablet by mouth Daily.Historical Med OLANZapine zydis (ZYPREXA ZYDIS) 15 MG disintegrating tablet Take 15 mg by mouth nightly. [place]-3 Fatty Acids (FISH OIL CONCENTRATE) 1000 MG [...] review all of her imaging studies from [facility] ED COURSE & MEDICAL DECISION MAKING Pertinent Labs & Imaging studies were reviewed along with EMS notes and [facility] record s if applicable. (See chart for details) Medications and Allergy list reviewed. Nurses note and old records were reviewed The patient was seen and examined, I was finally able to get her records from [facility] which showed a normal MRI [...] accident) (HCC) Follow-up Information Follow up with [facility]. Specialty: Emergency Medicine Contact information: [address] [facility] [address] Follow up with [facility]. Specialty: Emergency Medicine Contact information: [address] [facility] [address] Follow up with Natalee Andersen NP. Specialty: Family Nurse Practitioner Contact information: [address] [place] [address] Schedule an appointment as soon as possible for a visit with Baudilio Newman MD. Specialty: Neurology Contact information: [address] [facility] [id number] Discharge Medication List as of 02/26/2015 15:21 Davey Varela MD 02/26/15 1732 do cumented in this encounter Miscellaneous Notes ED Triage Notes - Yesenia Monroy RN - 02/26/2015 1:11 PM PDTC/O right sided facial mahendra op and numbness to right arm and leg onset yesterday at approximately 1800. Pt was seen in [facility] by her primary care physician [...] [address] | | | | | | [place] [address] | | | | | | [phone] | | | | | | | | +--------+ + + + + | 08/28/ | Office | Cardiology | Dora De La Torre | | | 2019 | Visit | | [address] M[address] | | | | | | [address] | | | | | | [place] [address] | | | | | | [phone] | | | | | | | [...] mL/min/1.73m2 | [facility] | | | COLOMBIAN | RATE,ESTIMATED | | MEDICAL | | | | mL/min/1.83o1Yhjl than | | CENTER - | | [...] [facility] | | | | | | [facility] | | | | | | MEDICAL | | | | | | CENTER - | | | | | | LABORATORY | | + + + + + + | Bilirubin | 0.5 | 0.1 - 1.5 mg/dL | [facility] | | | Total | | | [...] [address] | [place] | [phone] | | [facility] | | [address] | | | - LABORATORY | | [...] [place] | | | Basophils | | K/Erinn | [facility] | | | | [...] [address] | [place] | [phone] | | [facility] | | [address] | | | - LABORATORY | | [...] | ---- | | | 02/26/2015 13:10 [facility] | | | Emergency -numbness/facial droop 02/26/2015 08:15 [facility] | | | [facility] 02/19/2015 | | | 10:15 [facility] | | | -Diabetes [...] as uncontrolled 02/17/2015 | | | 08:22 [facility] Emergency | | | -Long-term (current) [...] and uterus 02/14/2015 | | | 09:56 [facility] Emergency | | | -Disturbance of [...] status 02/06/2015 10:46 | | | [facility] | | | -Generalized [...] residual deficits | | | 02/01/2015 21:38 [facility] | | | Emergency 01/22/2015 14:00 [facility] | | | Urgent Care -Myalgia [...] intervertebral disc | | | 01/16/2015 12:15 [facility] | | | Urgent Care -Unspecified [...] other | | | medications 01/07/2015 11:45 [facility] | | | Urgent Care -Unspecified [...] acquired hypothyroidism 12/30/2014 | | | 17:54 [facility] Emergency | | | -Obstructive sleep [...] essential hypertension | | | 12/30/2014 14:30 [facility] | | | Urgent Care -Cramp [...] | | -Cramp of limb 11/29/2014 16:15 [facility] | | | Urgent Care -Esophageal [...] ------ | | | --------- [address] | | | [facility] [address] | | | [facility] 7 0 Total | | | Note: Visits indicate total known visits. Medicaid [place] Dx are the | | | number of primary diagnoses on the [facility]'s non-emergent dx list. | | [...]
--- OUTSIDE RECORDS SUMMARY | ~2020-05-13 | XMS | Encounter Summary ---
Demographics + + + | Address | [address] | | | [place] [address] | + + + | Home Phone [...] [place] | | | | | [address] | | + + + + + Care Team Providers + +------+ + | Care Material Stress Tester Name | Role | Phone | + +------+ + | Hari Samson DO | PCP | | + +------+ + Reason for Visit + + + | Reason | Comments | + + + | Follow-up, Office | | | Visit | | + + + Encounter Details +--------+---------+ + + + | Date | Type | Department | Care Team | Description | +--------+---------+ + + + | 12/17/ | Office | [facility] | Dora De La Torre | History of atrial | | 2020 | Visit | CARDIOLOGY [place] | [address] | fibrillation; Benign | | | | [address] | [address] | essential HTN; | | | | [address] | [place] [address] | History of | | | | [place], [place] | [phone] | hypothyroidism; | | | | [address] | | Stress | | | | [phone] | | hyperglycemia; | | | | | | History of sleep | | | | | | apnea; History of | | | | | | stroke; Obesity, | | | | | | Class III, BMI | | | | | | 40-49.9 (morbid | | | | | | obesity) ([facility]); Mild | | | | | | hyperlipidemia | +--------+---------+ + + + Social History [...] + + + | Blood Pressure | 134/72 | 12/17/2019 10:20 AM | | | | | PST | | + + + + + | Pulse | 108 | 12/17/2019 10:20 AM | | | | | PST | | + + + + + | Temperature | - | - | | + + + + + | Respiratory Rate | - | - | | + + + + + | Oxygen Saturation | 93% | 12/17/2019 10:20 AM | | | | | PST | | + + + + + | Inhaled Oxygen | - | - | | | Concentration | | | | + + + + + | Weight | 124.1 kg (273 lb 9.6 | 12/17/2019 10:20 AM | | | | oz) | PST | | + + + + + | Height | 170.2 cm (5' 7") | 12/17/2019 10:20 AM | | | | | PST | | + + + + + | Body Mass Index | 42.85 | 12/17/2019 10:20 AM | | | | | PST | | + + + + + documented in this encounter Patient Instructions Patient Instructions Dora De La Torre FNP - 12/17/2019 10:30 AM PSTPlease bring your m edication bottles to all clinic visits to help us maintain safe care for you, and ensure acc urate medication record I made changes to medications by increasing metoprolol XL to 50 mg twice a day, and take s lo magnesium 64 mg twice a day See me back in 3-4 weeks documented in this encounter Progress Notes Dora De La Torre FNP - 12/17/2019 10:30 AM PSTFormatting of this note might be differe nt from the original. Date of visit: 12/17/2019 Primary Care Physician: Hari Samson DO CHIEF COMPLAINT: Chief Complaint Patient presents with Follow-up, Office Visit HISTORY OF PRESENT ILLNESS: Ms. Arndt is a 64 year old woman who is here today to follow up on symptoms of fast h eart rate , and racing heart not resolved on Metoprolol XL. . She is a patient of , and [...] arrhythmias except short episo de of atrial fib. , and her angiogram 2013 had shown normal coronaries. She started her on metoprolol succinate 50 mg daily but noted she had been seen in ER for chest pain, and had symptoms of fatigue and shortness of breath. Her [id number] VASC score is 4 (stroke, HTN, gender) , and Dr. Peterson did not anticoagulate he r due to low incidence of atrial fib. Her current and previous testing and procedures are detailed below. She was seen in the emergency room on October 11, [address] [facility] and presented wi th paranoia feeling that knives were chasing her , so went to the emergency room so that she could feel safe and Had [facility] [place] evaluation and discharged home Labs performed at the time showed a normal sinus CBC, but CMP showed elevated glucose, lo w sodium, and mildly elevated liver enzymes. She was seen again in the ER on October 12 for similar complaints, toxicity screen a gain normal, and she was started on long acting metformin and glipizide again as the emerge ncy room physicians noted that her sugars had been in the 300's right back until the summer with the lowest recording of 195 and the highest of 405 and [facility], and she was to be started on Abilify. She was seen again in the emergency room on October 19 and , [id number] for sim ilar complaints with increased delusions, and not feeling safe at home. Her last lab work was performed on October 20 and showed a normal CBC, CMP again showed m arkedly elevated glucose of 540 with normal renal function, low sodium of 131, and normal li edison enzymes except for alk phos mildly elevated ,and again negative screen for toxicities, a nd thyroid function was normal She has complaints today of racing heart, and shortness of breath but reports previous sym ptoms of chest pain resolved since she was on Metoprolol . She feels sometimes it feels lik e her heart rate goes fast and then stops. She reports dyspnea with more extreme exertion li ke climbing stairs but not otherwise., but reports she could same stairs to her apartment wi thout any difficulty one year ago. She reports dizzy and light headed with palpitations, and denies pedal edema. She reports she is not on metformin or glipizide, as stopped by Dr. Samson, as reports she has stress hyperglycemia related to her mental illness, and sugars normalize in between her mental health episodes. She reports she will be following up with Dr. Samson again in 6 weeks, and saw her last 2 w eeks ago. She denies any signs or symptoms of stroke or TIA. She reports after she lost 160 pounds with a gastric sleeve that she was retested for sleep apnea 2 years ago, and told the results, but has not had for 3 years . She has previously seen Dr. Garland in [place], and different provider in [place] when lived over there. She reports she has not been on any thyroid medicine for several years, and thyroid func tion has been normal, and that her fatty liver and hyperlipidemia had also resolved with andrey ght loss She reports she is a lifelong non-smoker, and denies any use of alcohol, or recreational or illicit drugs. REVIEW OF SYSTEMS: Negative except for pertinent items noted in HPI. Constitutional: Denies fatigue or unexplained weight loss. Appetite is good. Denies night sweats, fevers or chills HENT: Denies nosebleeds. Denies hearing problems. Denies dysphagia Eyes: Denies visual disturbance or double vision. Respiratory/Sleep:: Previously on CPAP, lost 160 lbs, tested negative sleep apnea Denies c ough , but DAVILA with more extreme exertion like climbing stairs. Denies hemoptysis or excess chris sputum production. Denies snoring, orthopnea, PND. Cardiovascular: Reports palpitations, racing heart. Denies chest pain, and leg swelling. Denies history of rheumatic fever. Denies claudication . Denies AAA. Gastrointestinal: GERD . On PPI BID Denies nausea, vomiting, abdominal pain and blood in stool.Denies PUD . Genitourinary: Denies hematuria. Musculoskeletal:DDD, back surgery 2014 resolved pain. Denies myalgias,arthralgias. Skin: Denies color change. Denies rash or lesions Neurological: Dizzy and lightheaded with palpitations, no recent syncope, no recent syncope . History of stroke 2013 affected left side with weakness to left arm and leg, residual left -sided droop to mouth, no other deficits.Denies history of seizures. Denies numbness. Hematological/Oncology . Bruises easily. Denies bleeding Denies history of cancer. Denies Hx blood transfusion Endocrine: Hx elevated blood sugars with stress (300-500?). Hx Hypothyroidism off medicati ons . Denies excessive thirst or hunger. Psychiatric/Behavioral: Bipolar/Schizophrenia. Tx'd by [employer] Vaccines: Current on flu vaccine: 2019 Current on pneumonia vaccine:PPSV 23 05/29/2013 Habits/Social : Denies history of smoking. Denies EtOH use. Denies recreational or illici t drug use. Exercises sporadically. Lives in [place] . Outpatient Medications Prior to Visit Medication Sig Dispense Refill acetaminophen (TYLENOL) 325 mg tablet Take 325 mg by mouth every 6 (six) hours as neede d for Pain. albuterol 90 mcg/puff inhaler Inhale 2 puffs into the lungs every 4 (four) hours as nee ded for Wheezing. amitriptyline (ELAVIL) 50 mg tablet 75 mg. ARIPiprazole (ABILIFY) 10 mg tablet Take 10 mg by mouth nightly. B Complex Vitamins (VITAMIN B COMPLEX PO) Take by mouth. Blood Glucose Monitoring Suppl ([employer] VERIO FLEX SYSTEM) w/Device KIT by Does not ap ply route. budesonide-formoterol (SYMBICORT) 160-4.5 mcg/puff inhaler Inhale 2 puffs into the lung s 2 (two) times daily. calcium carbonate antacid (TUMS ULTRA 1000) 1000 MG CHEW Chew and swallow 1,000 mg 4 ti mes daily as needed. Cholecalciferol (VITAMIN D-3) 26285 units CAPS Take 50,000 Units by mouth Once a week. clonazePAM (KLONOPIN) 0.5 mg tablet Take 0.5 mg by mouth 2 times daily. glipiZIDE (GLUCOTROL) 5 mg tablet Take 5 mg by mouth every morning (before breakfast). ibuprofen (ADVIL,MOTRIN) 800 MG tablet Rarely takes levothyroxine (SYNTHROID) 137 mcg tablet Take 112 mcg by mouth every morning (before br eakfast). magnesium, as oxide, 250 MG tablet Take 250 mg by mouth Daily. metFORMIN (GLUCOPHAGE-XR) 500 mg 24 hr tablet Take 1 tablet by mouth daily (with breakf ast). (Patient taking differently: Take 1,000 mg by mouth 2 times daily.) 90 tablet 3 metoprolol succinate (TOPROL-XL) 50 mg 24 hr tablet Take 1 tablet by mouth Daily. 30 ta blet 5 Multiple Vitamins-Minerals (ADULT MULTIVITAMIN WITH MINERALS/IRON) TABS Take 1 tablet b y mouth Daily. chewable OLANZapine (ZYPREXA) 20 MG tablet Take 20 mg by mouth nightly. pantoprazole (PROTONIX) 20 mg tablet Take 20 mg by mouth 2 times daily (before meals). potassium chloride (KLOR-CON) 10 MEQ ER tablet Take 10 mEq by mouth Daily. No facility-administered medications prior to visit. PHYSICAL EXAM: Wt Readings from Last 3 Encounters: 12/17/19 124.1 kg (273 lb 9.6 oz) 10/04/19 134.7 kg (297 lb) 07/19/19 (!) 136.5 kg (301 lb) Temp Readings from Last 3 Encounters: 03/06/15 37.1 C (98.8 F) (Oral) 02/26/15 36.2 C (97.2 F) (Oral) 07/05/14 35.8 C (96.4 F) (Oral) BP Readings from Last 3 Encounters: 12/17/19 134/72 10/04/19 116/70 07/19/19 116/70 Pulse Readings from Last 3 Encounters: 12/17/19 108 10/04/19 86 07/19/19 85 GENERAL: Well developed, well nourished woman, in [...] abdominal aortic pulsation is not palpable. EXTREMITIES: Trace pedal edema. Radial pulses 2+ bilaterally. Femoral pulses are 2+ bila terally without bruits. DP and PT pulses are [...] chest discomfort, patient unable to walk on [employer] (Astilbe). Resting EKG normal sinus rhythm, arrhythmias ventricular [...] nonspecific ST-T wave abnormality rate 82 bpm, WY 176 ms, QRS 80 ms, QTC 446 ms tracing personally reviewed by me EK12/17/2019: Sinus tachycardia, nonspecific ST wave abnormalities, rate 105 bpm, WY 196 ms, QRS 74 ms, QTC 430 ms, tracing personally reviewed by me, and compared to EKG performed in February 2019, rate is less well-controlled LABS Labs: 12/26/2018: ( [facility] ER)CMP: Sodium 139, potassium 4.2, chloride 99, BUN 10, creatinine 0. 7, BNP 28. CBC: WBC 7.8, hemoglobin 14.3, hematocrit 42.7, platelets 214 Labs: 09/28/2019:( [facility] ER) CBC: WBC 7.8, hemoglobin 14.9, hematocrit 43.8, platelets 221. C MP: Sodium 132, potassium 4.2, chloride 95, AST 76, ALT 76, alk phos 134 Labs: 10/11/2019:( [facility] ER) CBC: WBC 6.7, RBC 4.97, hemoglobin 15.2, hematocrit 44.7, platel ets 200. CMP: Glucose 385, BUN 7, creatinine 0.62, GFR 97, sodium 131, potassium 4.1, chlor kelby 95, albumin 4.3, total bilirubin 0.6, AST 75, ALT 73, alk phos 144. Thyroid: TSH 4.27 Labs: 10/12/2020:( [facility] ER) CBC: WBC 7, RBC 4.93, hemoglobin 14.7, hematocrit 44.1, platele ts 186 normal UA CMP: Glucose 381, BUN 6, creatinine 0.63, GFR 95, sodium 133, potassium 3.8 , chloride 97, albumin 4.3, total bili 0.6, AST 62, ALT 75, alk phos 145 thyroid: TSH 3.07 Labs: 10/20/2019:( [facility] ER) CBC: WBC 7.1, RBC 4.93, hemoglobin 15.1, hematocrit 45.2, platel ets 204. CMP: Glucose 540, BUN 8, creatinine 0.81, GFR 71, sodium 131, potassium 4.1, chlor kelby 95, albumin 4.2, total bili 0.5, AST 54, ALT 63, alk phos 123, negative screen for all d rugs except tricyclics. Thyroid: TSH 3.39. ASSESSMENT & PLAN: She was here to follow up on symptoms of racing heart and palpitations despite being on metoprolol XL 50 mg She has problems as detailed below. Her EKG performed in the clinic today shows sinus tachycardia at 105 bpm, and considera navya more elevated heart rate than when last seen by Dr. Peterson, though blood pressure appears adequate. I reviewed her EKG with her, and discussed with her that I would like to increase her me toprolol XL to 50 mg twice daily to see if this would help control her heart rate and sympto ms better. She was agreeable to this plan and I sent in a prescription to her local pharmacy [facility]'s . I made no other changes to her medications today, except ordered her magnesium chloride 64 mg twice daily to help with palpitations, and leg cramps. I did discuss with her that if she had more prolonged episodes of atrial fib, that we wou ld need to consider anticoagulation. I also discussed with her that may need updated evalu ation for sleep apnea if she develops more atrial fibrillation, even though tested negative a few years ago. I will follow-up with her next on January 16, and she will follow-up with Dr. Peterson on April 10 . 1. History of atrial fibrillation 2. Benign essential HTN 3. History of hypothyroidism 4. Stress hyperglycemia 5. History of sleep apnea 6. History of stroke 7. Obesity, Class III, BMI 40-49.9 (morbid obesity) (HCC) 8. Mild hyperlipidemia Orders Placed This Encounter Procedures ECG 12 lead The following portions of the patient's history were personally reviewed by me and updated as appropriate: EKG tracings, other specialty provider and PCP notes,any Hospital admission and discharge summaries, any ER records , current and previous cardiac testing and procedure reports and d emilia,medication bottles NOT brought to visit today, but pharmacy dispense record personally reviewed by me. Allergies, current medications.labs Family history, past medical history, past social history, past surgical history. Problem list. This encounter was dictated with voice recognition software and may contain inadvertent rec ognition errors. Portions of this chart may have been copied from previous notes for continuity of care purp ose Preston [facility] 12/17/2019 docume nted in this encounter Plan of [...] [address] | | | | | | [place] [address] | | | | | | [phone] | | | | | | | | +--------+ + + + + | 08/28/ | Office | Cardiology | Britt Dora | | | 2019 | Visit | | [address] | | | | | | [address] | | | | | | [place] [address] | | | | | | [phone] | | | | | | | | +--------+ + + + + documented as of this encounter Procedures + +--------+ + + + | Procedure Name | Priori | Date/Time | Associated Diagnosis | Comments | | | ty | | | | + +--------+ + + + | ECG 12 LEAD | Routin | 12/17/2019 | History of atrial | Results for this | | | e | 10:29 AM | fibrillation Benign | procedure are in the | | | | PST | essential HTN | results section. | + +--------+ + + + documented in this encounter Results ECG 12 lead (12/17/2019 10:29 AM PST) + + + + + + | [...] + + + + | P-R | 196 | ms | [facility] | | | INTERVAL | | | | | + + + + + + | QRS | 74 | ms | [facility] | | | DURATION | | | | | + + + + + + | Q-T | 326 | ms | [facility] | | | INTERVAL | | | | | + + + + + + | Q-T | 430 | ms | [facility] | | | INTERVAL | | | | | | (CORRECTED) | | | | | + + + + + + | P WAVE AXIS | 62 | degrees | [facility] | | + + + + + + | QRS AXIS | -19 | degrees | [facility] | | + + + + + + | T AXIS | 25 | degrees | [facility] | | + + + + + + | INTERPRETAT | Sinus | | [facility] | | | ION TEXT | tachycardiaNonspecific | | | | | | ST and T wave | | | | | | abnormalityAbnormal | | | | | | ECGWhen compared with | | | | | | ECG of 27-JUN-2019 | | | | | | 13:15,No significant | | | | | | change since previous | | | | | | ECG Although rate has | | | | | | increased Confirmed by | | | | | | Dora De La Torre | | | | | | Yesenia ([id number]) on | | | | | | 12/17/2019 12:03:52 PM | | | | + + [...] | | system | + + | Benign essential HTN Essential hypertension, benign | + + | History of hypothyroidism Personal history of other endocrine, metabolic, and | | immunity disorders | + + | Stress hyperglycemia Other abnormal blood chemistry | + + | History of sleep apnea Personal history of other specified diseases | + + | History of stroke Transient ischemic attack (TIA), and cerebral infarction without | | residual deficits | + + | Obesity, Class III, BMI 40-49.9 (morbid obesity) (HCC) Morbid obesity | + + | Mild hyperlipidemia Other and unspecified hyperlipidemia | + + documented in this encounter
--- OUTSIDE RECORDS SUMMARY | ~2020-05-13 | XMS | Encounter Summary ---
Demographics + + + | Address | [address] | | | [place] [address] | + + + | Home Phone [...] [place] | | | | | [address] | | + + + + + Care Team Providers + +------+ + | Care Senior Catering Sales Manager Name | Role | Phone [...] Transcriptions | + + | Interface, Supervisor Blueprinting And Photocopy In - 10/24/2006 3:09 AM PST | | [facility] | | [address] [place], [place] [address] [place] | | [facility] RECORDMed Rec No.: [id number] Date: | | [...]
--- OUTSIDE RECORDS SUMMARY | ~2020-05-13 | XMS | Encounter Summary ---
Demographics + + + | Address | [address] | | | [place] [address] | + + + | Home Phone [...] [place] | | | | | [address] | | + + + + + Care Team Providers + +------+ + | Care Sand Buffer Name | Role | Phone | + [...] + + | 03/07/ | Telephone | [facility] | Katharine Cardona PA-C | Results | | 2014 | | MED[facility] [place] | [address] [facility] | | | | | [address] | [place] [address] | | | | | [place], [place] | [phone] | | | | | [address] | | | | | | [phone] | | | +--------+ + + + [...] Miscellaneous Notes Telephone Encounter - Adrianne Horton, Supervisor Agricultural Education - 03/11/2015 3:41 PM PDTCalled Pat and delivered her results. Patient verbalized good understanding. elephone Encounter - Adrianne Horton , Supervisor Agricultural Education - 03/11/2015 8:40 AM PDTCall placed to [...] [address] | | | | | | [place] [address] | | | | | | [phone] | | | | | | | | +--------+ + + + + | 08/28/ | Office | Cardiology | Dora De La Torre | | | 2019 | Visit | | [address] | | | | | | [address] | | | | | | [place] [address] | | | | | | [phone] | | | | | | | | +--------+ + + + + documented as of this encounter Visit Diagnoses Not on filedocumented in this encounter"
--- OUTSIDE RECORDS SUMMARY | ~2020-05-13 | XMS | Encounter Summary ---
Demographics + + + | Address | [address] | | | [place] [address] | + + + | Home Phone [...] [place] | | | | | [address] | | + + + + + Care Team Providers + +------+ + | Care Range Aid Name | Role | Phone | [...] | | | | | [address] | [place] [address] | | | | | [place] | [phone] | | | | | [address] | | | | | | [phone] | | | +--------+ + + + [...] Percocet prescription and faxed it to them ([facility]) this morning like I told them I would. Thank you for doing that, but it should not have been necessary. Telephone Encounter - Lincoln Cheema MD - 07/06/2014 8:59 PM PDTCalled regarding increased p ain. She was taking percocet. She was discharged to a [facility] on hydrocodone. I talked to the [...] [address] | | | | | | [place] [address] | | | | | | [phone] | | | | | | | | +--------+ + + + + | 08/28/ | Office | Cardiology | Dora De La Torre | | | 2019 | Visit | | [address] | | | | | | [address] | | | | | | [place] [address] | | | | | | [phone] | | | | | | | | +--------+ + + + + documented as of this encounter Visit Diagnoses Not on filedocumented in this encounter"
--- OUTSIDE RECORDS SUMMARY | ~2020-05-13 | XMS | Encounter Summary ---
Demographics + + + | Address | [address] | | | [place] [address] | + + + | Home Phone [...] [place] | | | | | [address] | | + + + + + Care Team Providers + +------+ + | Care Director Of Hotel Name | Role | Phone | + [...] + + | 08/09/ | Documentati | [facility] | Katharine Moncada, | Other (end of study) | | 2019 | on | CARDIOLOGY [place] | Technologist | | | | | [address] | | | | | | [place], [place] | | | | | | [address] | | | | | | [phone] | | | +--------+ + + + [...] Technologist - 08/09/2019 11:59 PM PDT Cardiac Nut Packer Date of Event Monitor: 08/09/19 Referring Physician: [...] [address] | | | | | | [place] [address] | | | | | | [phone] | | | | | | | | +--------+ + + + + | 08/28/ | Office | Cardiology | Dora De La Torre | | | 2019 | Visit | | [address] | | | | | | [address] | | | | | | [place] [address] | | | | | | [phone] | | | | | | | | +--------+ + + + + documented as of this encounter Visit Diagnoses Not on filedocumented in this encounter"
--- OUTSIDE RECORDS SUMMARY | ~2020-05-13 | XMS | Encounter Summary ---
Demographics + + + | Address | [address] | | | [place] [address] | + + + | Home Phone [...] [place] | | | | | [address] | | + + + + + Care Team Providers + +------+ + | Care Pneumatic Drum Sander Name | Role | Phone | [...] + + | 10/04/ | Office | [facility] | Desiree Peterson DO | ROGERS on CPAP (Primary | | 2019 | Visit | CARDIOLOGY [place] | [address] | Dx); Morbid obesity | | | | [address] | [place], [place] | (HCC); Benign | | | | [address] | [address] | essential HTN; | | | | [place], [place] | | Atrial fibrillation, | | | | [address] | | unspecified type | | | | [phone] | | ([facility]) | +--------+---------+ + + + Social [...] Desiree Peterson, - 10/04/2019 11:40 AM PST [facility] Cardiology Cardiology Follow Up Note Reason for [...] rtake in exercise. She recently got a [employer] and has been walking him more regularly. [...] by mouth daily. Blood Glucose Monitoring Suppl ([employer] FLEX SYSTEM) w/Device KIT by Does not ap ply route. budesonide-formoterol (SYMBICORT) 160-4.5 MCG/ACT inhaler Inhale 2 puffs into the lungs 2 (two) times daily. Calcium Carbonate Antacid 1000 MG tablet Take 1,000 mg by mouth 3 (three) times daily. Cholecalciferol (VITAMIN D3) 95700 units CAPS Take by mouth once a [...] [address] | | | | | | [place] [address] | | | | | | [phone] | | | | | | | | +--------+ + + + + | 08/28/ | Office | Cardiology | Dora De La Torre | | | 2019 | Visit | | [address] | | | | | | [address] | | | | | | [place] [address] | | | | | | [phone] | | | | | | | [...]
--- OUTSIDE RECORDS SUMMARY | ~2020-05-13 | XMS | Encounter Summary ---
Demographics + + + | Address | [address] | | | [place] [address] | + + + | Home Phone [...] [place], [place] | | | | | [address] | | + + + + + Care Team Providers + +------+ + | Care Spiritual Counselor Name | Role | Phone | + +------+ + PCP | Unavailable | + +------+ + Encounter Details +--------+ + + + + | Date | Type | Department | Care Team | Description | +--------+ + + + + | 07/23/ | Hospital | [facility] | | | | 1992 - | Encounter | MED CTR GENERIC PSY | | | | | | CONV DEPT [address] | | | | 07/28/ | | [address] [place], | | | | 1992 | | [place] [address] | | | | | | [phone] | | | +--------+ + + + [...] [address] | | | | | | [place] [address] | | | | | | [phone] | | | | | | | | +--------+ + + + + | 08/28/ | Office | Cardiology | Dora De La Torre | | | 2019 | Visit | | [address] | | | | | | [address] | | | | | | [place] [address] | | | | | | [phone] | | | | | | | | +--------+ + + + + documented as of this encounter Visit Diagnoses Not on filedocumented in this encounter"
--- OUTSIDE RECORDS SUMMARY | ~2020-05-13 | XMS | Encounter Summary ---
Demographics + + + | Address | [address] | | | [place] [address] | + + + | Home Phone [...] Author + + + | Author | [facility] | + + + | Organization | [facility] | + + + | Address | Unknown | + + + | Phone | Unavailable | + + + Support + + + + + | Name | Relationship | Address | Phone | + + + + + | Kelsy Bautista | ECON | [address] | | | | | [place] | | | | | [address] | | + + + + + Care Team Providers + +------+ + | Care Color Finisher Name | Role | Phone | [...] Clinic | | | | | | [facility], [address] | | | | | | [place], [place] | | | | | | [address] | | | | | | [phone] | | | +--------+ + + + [...] as of this encounter Progress Notes Interface, Parole Hearing Officer In - 12/11/2006 5:03 AM [facility] DATE: 07/03/97 INFECTIOUS DISEASE CLINIC: REFERRED [...]
--- OUTSIDE RECORDS SUMMARY | ~2020-05-13 | XMS | Encounter Summary ---
Demographics + + + | Address | [address] | | | [place] [address] | + + + | Home Phone [...] [place] | | | | | [address] | | + + + + + Care Team Providers + +------+ + | Care Band Saw Runner Name | Role | Phone | + [...] + | 05/02/ | Telephone | [facility] | Frandy Teresa, | Other | | 2013 | | NEUROSURGERY [address] | DO [address] | | | | | [address] | [address] [place], [place] | | | | | [place], [place] | [id number] | | | | | [address] | | | | | | [phone] | | | +--------+ + + + [...] | | | | | [place] [address] | | | | | | [phone] | | | | | | | | +--------+ + + + + | 08/28/ | Office | Cardiology | Dora De La Torre | | | 2019 | Visit | | [address] | | | | | | [address] | | | | | | [place] [address] | | | | | | [phone] | | | | | | | | +--------+ + + + + documented as of this encounter Visit Diagnoses Not on filedocumented in this encounter"
--- OUTSIDE RECORDS SUMMARY | ~2020-05-13 | XMS | Encounter Summary ---
Demographics + + + | Address | [address] | | | [place] [address] | + + + | Home Phone [...] [place] | | | | | [address] | | + + + + + Care Team Providers + +------+ + | Care Machine Room Operator Name | Role | Phone | + +------+ + | Hari Samson DO | PCP | | + +------+ + Reason for Visit + +--------+ + | Reason | Onset | Comments | | | Date | | + +--------+ + | Medication Question | 05/01/ | | | | 2020 | | + +--------+ + Encounter Details +--------+ + + + + | Date | Type | Department | Care Team | Description | +--------+ + + + + | 05/01/ | Telephone | [facility] | Dora De La Torre | Medication Question | | 2020 | | CARDIOLOGY [place] | [address] | | | | | [address] | [address] | | | | | [address] | [place] [address] | | | | | [place] | [phone] | | | | | [address] | | | | | | [phone] | | | +--------+ + + + [...] - Dora De La Torre FNP - 05/01/2020 9:05 [address] PDTDr. Neelam rodriguez jose enrique hayward today to let me know she will now be seeing Cindy, and trying to get her diabetes under better control. She did have a question about her being on aspirin, and I said with her br ief episode of atrial fib, and possible stroke in her past, that she could be on aspirin 325 . I told her I was ordering her another event monitor, and if she had any further recurrenc e of atrial fibrillation that I would start her on anticoagulation. She is going to gently ease her into diabetic treatment, as previously she reacted very negatively to being on insulin, but is willing to work with her long-term to get her diabet es well controlled. documented in this encounter Plan of Treatment [...] [address] | | | | | | [place] [address] | | | | | | [phone] | | | | | | | | +--------+ + + + + | 11/05/ | Office | Cardiology | Dora De La Torre | | | 2020 | Visit | | [address] | | | | | | [address] | | | | | | [place] [address] | | | | | | [phone] | | | | | | | | +--------+ + + + + documented as of this encounter Visit Diagnoses Not on filedocumented in this encounter"
--- OUTSIDE RECORDS SUMMARY | ~2020-05-13 | XMS | Encounter Summary ---
Demographics + + + | Address | [address] | | | [place] [address] | + + + | Home Phone [...] [place], [place] | | | | | [address] | | + + + + + Care Team Providers + +------+ + | Care Knife Machine Operator Name | Role | Phone | + +------+ + PCP | Unavailable | + +------+ + Encounter Details +--------+ + + + + | Date | Type | Department | Care Team | Description | +--------+ + + + + | 12/22/ | Hospital | [facility] | | | | 1993 - | Encounter | MED CTR GENERIC PSY | | | | | | CONV DEPT [address] | | | | 12/25/ | | [address], | | | | 1993 | | [place] [address] | | | | | | [phone] | | | +--------+ + + + [...] [address] | | | | | | [place] [address] | | | | | | [phone] | | | | | | | | +--------+ + + + + | 08/28/ | Office | Cardiology | Dora De La Torre | | | 2019 | Visit | | [address] | | | | | | [address] | | | | | | [place] [address] | | | | | | [phone] | | | | | | | | +--------+ + + + + documented as of this encounter Visit Diagnoses Not on filedocumented in this encounter"
--- OUTSIDE RECORDS SUMMARY | ~2020-05-13 | XMS | Encounter Summary ---
Demographics + + + | Address | [address] | | | [place] [address] | + + + | Home Phone [...] [place] | | | | | [address] | | + + + + + Care Team Providers + +------+ + | Care Hotel Front Desk Clerk Name | Role | Phone | [...] + + | 08/16/ | Documentati | [facility] | Katharine Moncada, | Other (urgent | | 2019 | on | CARDIOLOGY [place] | Technologist | report) | | | | [address] | | | | | | [place] | | | | | | [address] | | | | | | [phone] | | | +--------+ + + + [...] | | | | | [place] [address] | | | | | | [phone] | | | | | | | | +--------+ + + + + | 08/28/ | Office | Cardiology | Dora De La Torre | | | 2020 | Visit | | [address] | | | | | | [address] | | | | | | [place] [address] | | | | | | [phone] | | | | | | | | +--------+ + + + + documented as of this encounter Visit Diagnoses Not on filedocumented in this encounter"
--- OUTSIDE RECORDS SUMMARY | ~2020-05-13 | XMS | Encounter Summary ---
Demographics + + + | Address | [address] | | | [place] [address] | + + + | Home Phone [...] [place] | | | | | [address] | | + + + + + Care Team Providers + +------+ + | Care Museum Curator Name | Role | Phone | [...] + + | 10/23/ | Telephone | [facility] | Aslhey Chávez | Other (Patient | | 2019 | | CARDIOLOGY [place] | Pollo, City Carrier Assistant | called about | | | | [address] | | metoprolol. ) | | | | [place], [place] | | | | | | [address] | | | | | | [phone] | | | +--------+ + + + [...] Miscellaneous Notes Telephone Encounter - Ashley Chávez, City Carrier Assistant - 10/23/2019 10:49 [facility] [...] her back when I have her recommendations. JDW:FLEXBOARD OPERATOR-AAMA. [facility] umented in this encounter Plan of Treatment +--------+ + + + + | Date | Type | Specialty | Care Team | Description | +--------+ + + + + | 06/12/ | Procedure | Cardiology | Britt Dora | | | 2019 | visit | | [address] | | | | | | [address] | | | | | | [place] [address] | | | | | | [phone] | | | | | | | | +--------+ + + + + | 08/28/ | Office | Cardiology | Dora De La Torre | | 2019 | Visit | | [address] | | | | | | [address] | | | | | | [place] [address] | | | | | | [phone] | | | | | | | | +--------+ + + + + documented as of this encounter Visit Diagnoses Not on filedocumented in this encounter"
--- OUTSIDE RECORDS SUMMARY | ~2020-05-13 | XMS | Encounter Summary ---
Demographics + + + | Address | [address] | | | [place] [address] | + + + | Home Phone [...] [place], [place] | | | | | [address] | | + + + + + Care Team Providers + +------+ + | Care Barrel Reamer Name | Role | Phone | + +------+ + PCP | Unavailable | + +------+ + Encounter Details +--------+ + + + + | Date | Type | Department | Care Team | Description | +--------+ + + + + | 02/24/ | Hospital | [facility] | | | | 1997 | Encounter | MED CTR EMERGENCY | | | | | | [address] | | | | | | [place] | | | | | | [address] | | | | | | [phone] | | | +--------+ + + + [...] | | | | | [place] [address] | | | | | | [phone] | | | | | | | | +--------+ + + + + | 08/28/ | Office | Cardiology | Dora De La Torre | | | 2020 | Visit | | [address] | | | | | | [address] | | | | | | [place] [address] | | | | | | [phone] | | | | | | | | +--------+ + + + + documented as of this encounter Visit Diagnoses Not on filedocumented in this encounter"
--- OUTSIDE RECORDS SUMMARY | ~2020-05-13 | XMS | Encounter Summary ---
Demographics + + + | Address | [address] | | | [place] [address] | + + + | Home Phone [...] [place], [place] | | | | | [address] | | + + + + + Care Team Providers + +------+ + | Care Central Office Repairer Name | Role | Phone | + +------+ + PCP | Unavailable | + +------+ + Encounter Details +--------+ + + + + | Date | Type | Department | Care Team | Description | +--------+ + + + + | 01/06/ | Hospital | [facility] | | | | 1992 | Encounter | MED CTR LABORATORY | | | | | | [address] | | | | | | [place] | | | | | | [address] | | | | | | [phone] | | | +--------+ + + + [...] | | | | | [place] [address] | | | | | | [phone] | | | | | | | | +--------+ + + + + | 08/28/ | Office | Cardiology | Dora De La Torre | | | 2020 | Visit | | [address] | | | | | | [address] | | | | | | [place] [address] | | | | | | [phone] | | | | | | | | +--------+ + + + + documented as of this encounter Visit Diagnoses Not on filedocumented in this encounter"
--- OUTSIDE RECORDS SUMMARY | ~2020-05-13 | XMS | Encounter Summary ---
Demographics + + + | Address | [address] | | | [place] [address] | + + + | Home Phone [...] [place] | | | | | [address] | | + + + + + Care Team Providers + +------+ + | Care Cilnical Scientist Name | Role | Phone | [...] | | | | | mellitus, | [address] | [place] | | | | | controlled | Phone: | [phone] | | | | | (HCC) | [phone] | Phone: | | | | | History of | Fax: | [phone] | | | | | gastric | [phone] | Fax: | | | | | restrictive | | [phone] | | | | | surgery | [...] | Required | | hypertension | [address] | | | | | Lumbar | [address]VE [place] | [address] | | | | | radiculopath | [place], [place] | AVE | | | | | y Type 2 | [address] | [place] | | | | | diabetes | Phone: | [address] | | | | | mellitus, | [phone] | Phone: | | | | | controlled | Fax: | [phone] | | | | | (HCC) | [phone] | Fax: | | | | | Obesity, | | [phone] | | | | | Class III, [...] | | [facility] & Katharine BUCIO in [place]. | + + + | Other | [...] + + | 03/06/ | Office | [facility] | Katharine Cardona PA-C | Hypothyroidism due | | 2014 | Visit | MEDICINE [address] | to acquired atrophy | | | | [address] [place] [address], | [place] [address] | of thyroid (Primary | | | | [place] [address] | [phone] | Dx); Essential | | | | [phone] | | hypertension; Iron | | | [...] Stroke | | | | | | ([facility]); Environmental | | | | | [...] | | | | obesity) ([facility]); | | | | | | Type 2 diabetes | | | | | | mellitus, controlled | | | | | | ([facility]); Preventative | | | | | [...] t be different from the original. Ask [employer] if they think it might be helpful [...] Cont your meds as prescribed. F/U with [employer] as scheduled Neuropathy Continue gabapentin. May consider increase if pain is not controlled. May benefit from switching from Paxil to one of the SNRIs or TCAs for analgesic effects, ho manju, she is doing so well on her current regimen it may not be worth making any changes an d find alternate ways to deal with the pain. Would be worth discussing with [employer] Psych Back Pain Will refer to water therapy (aqua fitness) at [facility] as request ed. ROGERS on [...] Colonoscopy procedures 4. Schizoaffective disorder, bipolar type ([facility]) 5. Neuropathy Vitamin B-12 6. BACK PAIN, LUMBAR, WITH RADICULOPATHY Ambulatory referral to Physical Therapy 7. ROGERS on CPAP 8. Stroke ([facility]) 9. Environmental and seasonal allergies fluticasone (FLONASE) 50 mcg/nasal spray 10. Gastroesophageal reflux disease without esophagitis dexlansoprazole (DEXILANT) 60 mg D R capsule 11. History of gastric restrictive surgery Vitamin D, 25-Hydroxy Nutrition Services - External - AMB Referral 12. Obesity, Class III, BMI 40-49.9 (morbid obesity) ([facility]) Ambulatory referral to Physical Therapy Nutrition Services - External - AMB Referral 13. Type 2 diabetes mellitus, controlled ([facility]) Ambulatory referral to Physical Therapy Nutrition [...] Cont your meds as prescribed. [facility] Neuropathy Continue gabapentin. [...] the pain. Would be worth discussing with [employer] professional. Back Pain Will refer to water therapy (aqua fitness) at [facility] as request ed. Cont home exercise, stretching, [...] plan. The above note was dictated using [employer] voice recognition software. It may have not been proofread in entirety. Minor errors in grammar may occur. CHIEF COMPLAINT Chief Complaint Patient presents with Establish Care Presents to establish care. Former patient of [facility] in [place]. Other Possible stroke January 2015. Is now seeing Dr. Newman, changed to Plavix 02-27-15 from [facility]. Diabetes NIDDM. Checks blood sugars almost daily, [...] auditory, at 36. 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 She is now very well controlled on Saphris, Depakote, and Paxi l. She is followed by [facility] in [place]. She has DM2 that is well controlled [...] Laterality: N/A; Surgeon: Frandy castellanos DO; Location: [facility] MAIN OR SOCIAL HISTORY History Social History [...] mg by mouth Daily. Cholecalciferol (VITAMIN D-3) 81228 units CAPS Oral Take 50,000 Units by [...] Oral Take 10 mg by mouth nightly. [place]-3 Fatty Acids (FISH OIL CONCENTRATE) 1000 MG [...] | 06/12/ | Procedure | Cardiology | BrittDora | | | 2019 | visit | | [address] | | | | | | [address] | | | | | | [place] [address] | | | | | | [phone] | | | | | | | | +--------+ + + + + | 08/28/ | Office | Cardiology | Dora De La Torre | | | 2019 | Visit | | [address] | | | | | | [address] | | | | | | [place] [address] | | | | | | [phone] | | | | | | | [...] | | | | | | controlled ([facility]) | | | | | | Obesity, Class III, | | | | | | BMI 40-49.9 (morbid | | | | | | obesity) ([facility]) | | + + +--------+ + [...] | | | | obesity) ([facility]) | | + + +--------+ + [...] | | | FILTRATION | mL/min/1.73m2 | [facility] | | | [place] | RATE,ESTIMATED | | MEDICAL | | | | mL/min/1.73h2Tnin than | | CENTER - | | [...] [address] | [place] | [phone] | | [facility] | | [address] | | | - LABORATORY | | [...]
--- OUTSIDE RECORDS SUMMARY | ~2020-05-13 | XMS | Encounter Summary ---
Demographics + + + | Address | [address] | | | [place] [address] | + + + | Home Phone [...] [place] | | | | | [address] | | + + + + + Care Team Providers + +------+ + | Care Mold Cooler Name | Role | Phone | + [...] | | | | | | | [address] | | | | | | | Phone: | | | | | | | [phone] | | | | | | | Fax: | | | | | | | [phone] | | +--------+--------+ + + + + Encounter Details +--------+---------+ + + + | Date | Type | Department | Care Team | Description | +--------+---------+ + + + | 02/27/ | [facility] | [facility] | Baudilio Newman | Neuropathy (Primary | | 2015 | Visit | NEUROLOGY [place] | MD Pollo Need updated | Dx); Sleep apnea; | | | | [address], | address | Stroke (HCC); | | | | [address] [place] | | Thyroid disease | | | | [place] [address] | | | | | | [phone] | | | +--------+---------+ + + + [...] supply of blood, brain tissue quickly dies. [phone] [employer]. [address] [place] [address]. All righ ts reserved. This information is not intended as a substitute for professional medical care. Always follow your healthcare professional's instructions. documented in this encounter Progress Notes Baudilio Newman MD - 02/27/2015 10:31 AM PDTFormatting of this note might be differen t from the original. Baudilio Newman MD [address] [place] [address], [address] [place] [address] Neurology Outpatient New Patient Note Referring Provider: [...] history. Notes from her recent hospitalization at [place] were reviewed in detail. Ms. [place] started feeling off in the evening of 02/01. She felt dizzy and laid down to slee p. Upon waking, she felt her right side was numb. She tried to get up to go to the bathroom and realized she was weak as well on the right. She was taken to [facility] where she was diagnosed with [...] systol ically. She was reevaluated in the [facility] ED for one such event and [...] hospitalization . This specimen was characterized at [facility], but the report is not currently available for [facility]. Unfortunately, Ms. Arndt notes that her [...] Laterality: N/A; Surgeon: Frandy castellanos DO; Location: [facility] MAIN OR Current Medications: Outpatient Medications [...] tablet Take 15 mg by mouth nightly. [place]-3 Fatty Acids (FISH OIL CONCENTRATE) 1000 MG [...] BMI 46.04 kg /m2 Neck Circumference: 14" [place] Sleepiness Scale: 2 General: well developed and [...] Romberg test negative Radiographic Review: CTA from [facility] reviewed on [facility]. No significant stenoses seen [...] No results found for this basename: hba1c, nec3nyd, ldl, ldldirect, ldlext, dldlex Lab Results Component [...] [address] | | | | | | [place] [address] | | | | | | [phone] | | | | | | | | +--------+ + + + + | 08/28/ | Office | Cardiology | Dora De La Torre | | | 2019 | Visit | | [address] | | | | | | [address] | | | | | | [place] [address] | | | | | | [phone] | | | | | | | [...]
--- OUTSIDE RECORDS SUMMARY | ~2020-05-13 | XMS | Encounter Summary ---
Demographics + + + | Address | [address] | | | [place] [address] | + + + | Home Phone [...] [place] | | | | | [address] | | + + + + + Care Team Providers + +------+ + | Care Phy Therapist Name | Role | Phone | + +------+ + | Natalee Andersen NP | PCP | | + +------+ + Encounter Details +--------+ + + + + | Date | Type | Department | Care Team | Description | +--------+ + + + + | 06/25/ | Hospital | [facility] | Frandy Teresa, | Diabetes mellitus | | 2014 | Encounter | MED CTR OR INTRA OP | DO [address] | (HCC) (Primary Dx) | | | | [address] | [address] [place], [place] | | | | | [place], [place] | [address] | | | | | [address] | | | | | | [phone] | | | +--------+ + + + [...] + + +---------+ + + | [place]-3 Fatty | Take 1,000 mg by | [...] this en counter H&P Notes CHAPITO ABREU [facility] - 06/21/2014 12:00 AM PDT 14 [...] - 06/26/2014 12:00 AM PDT NBASE SCAN [facility] - 06/12/2014 12:00 AM PDTElectronically signed by Mariah Schulte at 06/12 7:30 AM PDTONBASE SCAN [facility] - 06/11/2014 12:00 AM PDT documented in this encounter Miscellaneous Notes Miscellaneous - ONBASE SCAN [facility] - 06/26/2014 12:00 AM PDT lan [...] stenosis, lumbar region, without neurogenic claudication ). [employer]iff [employer] Agent visit is in response to an electronic spiritual care consult request. Patient wa s resting comfortably in bed; she was attended by her mom and dad - both sate nearby and see med very attentive and supportive. Cindy is Nondenominational, attends [employer], and is strong in her rangel. She is excited about taking care of her back problem and fe els very secure in Dr. Teresa's care. She welcomed prayer, and expressed appreciation for [facility] visit. Follow up with regular visits, emotional and spiritual support. iscellaneo us - ONBASE SCAN [facility] - 06/25/2014 12:00 AM PDTElectronically signed [...] [place] | | | | | | [place] [address] | | | | | | [phone] | | | | | | | | +--------+ + + + + | 08/28/ | Office | Cardiology | Dora De La Torre | | | 2019 | Visit | | [address] | | | | | | [address] | | | | | | [place] [address] | | | | | | [phone] | | | | | | | [...] | mL/min/1.73m2 | DORA | | | SWAZI | RATE,ESTIMATED | | MEDICAL | | | | mL/min/1.31v6Gyff than | | CENTER - | | [...] + | [facility] | [address] | [place] | [phone] | | [facility] | | [address] | | | - LABORATORY | | | | + + + + + | [facility] | [address] | [place] | | | [facility] | | [id number] | | | - [...] + | [facility] | [address] | [place], [place] | [phone] | | [facility] | | [address] | | | - LABORATORY | | | | + + + + + | [facility] | [address] | [place], [place] | | | [facility] | | [address] | | | - [...] + | [facility] | [address] | [place] | [phone] | | [facility] | | [address] | | | - LABORATORY | | | | + + + + + | [facility] | [address] | [place] | | | [facility] | | [address], [facility] | | | - LABORATORY | | [...] | | [facility] | | [address] | | | - BLOOD BANK | [...] + | [facility] | [address] | [place], [place] | [phone] | | [facility] | | [address] | | | - LABORATORY | | | | + + + + + | [facility] | [address] | [place], [place] | | | [facility] | | [address], [facility] | | | - LABORATORY | | [...]
--- OUTSIDE RECORDS SUMMARY | ~2020-05-13 | XMS | Encounter Summary ---
Demographics + + + | Address | [address] | | | [place] [address] | + + + | Home Phone [...] [place] | | | | | [address] | | + + + + + Care Team Providers + +------+ + | Care Ccu Nurse Name | Role | Phone | + +------+ + | Adriano Patrick MD | PCP | | + +------+ + Encounter Details +--------+ + + + + | Date | Type | Department | Care Team | Description | +--------+ + + + + | 06/10/ | Abstract | [facility] | Thierry Fry | | | 2014 | | MEDICINE [facility] RICH | MD Lisa [address] | | | [address] [place], | [place], [place] | | | | | [place] [address] | [address] | | | | | [phone] | | | +--------+ + + + [...] | | | | | [place] [address] | | | | | | [phone] | | | | | | | | +--------+ + + + + | 08/28/ | Office | Cardiology | Dora De La Torre | | | 2019 | Visit | | [address] | | | | | | [address] | | | | | | [place] [address] | | | | | | [phone] | | | | | | | [...]
--- OUTSIDE RECORDS SUMMARY | ~2020-05-13 | XMS | Encounter Summary ---
Demographics + + + | Address | [address] | | | [place] [address] | + + + | Home Phone [...] [place] | | | | | [address] | | + + + + + [...] | Abstract | [facility] [place] | [facility], | | | 2012 | | GASTROENTEROLOGY | FORTUNATO Thomas [address] | | | | | [address] | [address] | | | | | [address] [place], [place] | [place], [place] | | | | | [address] | [address] | | | | | [phone] | | | +--------+ + + + [...] | | | | | [place] [address] | | | | | | [phone] | | | | | | | | +--------+ + + + + | 08/28/ | Office | Cardiology | Dora De La Torre | | | 2020 | Visit | | [address] | | | | | | [address] | | | | | | [place] [address] | | | | | | [phone] | | | | | | | | +--------+ + + + + documented as of this encounter Visit Diagnoses Not on filedocumented in this encounter"
--- OUTSIDE RECORDS SUMMARY | ~2020-05-13 | XMS | Encounter Summary ---
Demographics + + + | Address | [address] | | | [place] [address] | + + + | Home Phone [...] [place] | | | | | [address] | | + + + + + Care Team Providers + +------+ + | Care Examiner Of Currency Name | Role | Phone | + [...] [address] | [address] [place], [place] | | | | | [place], [place] | [address] | | | | | [address] | | | | | | [phone] | | | +--------+ + + + [...] [address] | | | | | | [place] [address] | | | | | | [phone] | | | | | | | | +--------+ + + + + | 08/28/ | Office | Cardiology | Dora De La Torre | | | 2020 | Visit | | [address] | | | | | | [address] | | | | | | [place] [address] | | | | | | [phone] | | | | | | | [...] + | MISCELLANEOUS LAB | | | [phone] | + +---------+ + + | MISCELANIOUS LAB | | | [phone] | + +---------+ + + documented in this encounter Visit Diagnoses + + | Diagnosis | + + | Back pain - Primary Backache, unspecified | + + documented in this encounter"
--- OUTSIDE RECORDS SUMMARY | ~2020-05-13 | XMS | Encounter Summary ---
Demographics + + + | Address | [address] | | | [place] [address] | + + + | Home Phone [...] [place] | | | | | [address] | | + + + + + Care Team Providers + +------+ + | Care Care Trainer Name | Role | Phone | [...] + | 07/08/ | Telephone | [facility] | Frandy Teresa, | Other (post op call | | 2013 | | NEUROSURGERY [address] | DO [address] | ) | | | | [address] [facility] [address] | [address] [place], [place] | | | | | [place], [place] | [id number] | | | | | [address] | | | | | | [phone] | | | +--------+ + + + [...] Aragon Cert MA - 07/08/2014 11:04 [facility] SHAYNE ARAGON documented in this encounter [...] [address] | | | | | | [place] [address] | | | | | | [phone] | | | | | | | | +--------+ + + + + | 08/28/ | Office | Cardiology | Dora De La Torre | | | 2019 | Visit | | [address] | | | | | | [address] | | | | | | [place] [address] | | | | | | [phone] | | | | | | | | +--------+ + + + + documented as of this encounter Visit Diagnoses Not on filedocumented in this encounter"
--- OUTSIDE RECORDS SUMMARY | ~2020-05-13 | XMS | Clinical Summary ---
Demographics + + + | Address | [address] | | | [place] [address] | + + + | Home Phone [...] [place] | | | | | [address] | | + + + + + Care Team Providers + +------+ + | Care Applied Research Director Name | Role | Phone | + +------+ + PCP | Unavailable | + +------+ + Source Comments EDWARD is fully live on both [facility] Ambulatory and [facility] InPatient.[facility] Allergies Not on File Medications Not on [...] | [employer] | xxxxxxxxxx | 02/22/20 | [phone] | [address] | [employer] | | | RE A & | | 15-Pre | 1 | [address] | re | | | B | | sent | | [place] | | | | | | | | [address] | | + +--------+ +--------+ + +--------+ + +--------+ +--------+ + + | Guarantor Name | Accoun | Relation to | Date | Phone | Billing Address | | | t Type | Patient | of | | | | | | | | | | + +--------+ +--------+ + + | CINDY ARNDT | Person | Self | [birth year] | [address] | | al/Fam | | 1955 | [phone] | [address] [place] | | | devonte | | | 5 (Home) | [address] | + +--------+ +--------+ + +"
--- OUTSIDE RECORDS SUMMARY | ~2020-05-13 | XMS | Encounter Summary ---
Demographics + + + | Address | [address] | | | [place] [address] | + + + | Home Phone [...] [place] | | | | | [address] | | + + + + + Care Team Providers + +------+ + | Care Reversing Mill Roller Name | Role | Phone | [...] + | 05/13/ | Telephone | [facility] | Frandy Teresa, | Other | | 2013 | | NEUROSURGERY [address] | DO [address] | | | | | [address] | [address] [place], [place] | | | | | [place], [place] | [id number] | | | | | [address] | | | | | | [phone] | | | +--------+ + + + [...] [address] | | | | | | [place] [address] | | | | | | [phone] | | | | | | | | +--------+ + + + + | 08/28/ | Office | Cardiology | Dora De La Torre | | | 2019 | Visit | | [address] | | | | | | [address] | | | | | | [place] [address] | | | | | | [phone] | | | | | | | | +--------+ + + + + documented as of this encounter Visit Diagnoses Not on filedocumented in this encounter"
--- OUTSIDE RECORDS SUMMARY | ~2020-05-13 | XMS | Encounter Summary ---
Demographics + + + | Address | [address] | | | [place] [address] | + + + | Home Phone [...] [place], [place] | | | | | [address] | | + + + + + Care Team Providers + +------+ + | Care Jazz Singer Name | Role | Phone | + +------+ + PCP | Unavailable | + +------+ + Encounter Details +--------+ + + + + | Date | Type | Department | Care Team | Description | +--------+ + + + + | 06/17/ | Hospital | [facility] | | | | 1991 - | Encounter | MED CTR GENERIC PSY | | | | | | CONV DEPT [address] | | | | 06/18/ | | [address], | | | | 1991 | | [place] [address] | | | | | | [phone] | | | +--------+ + + + [...] [address] | | | | | | [place] [address] | | | | | | [phone] | | | | | | | | +--------+ + + + + | 08/28/ | Office | Cardiology | Dora De La Torre | | | 2019 | Visit | | [address] | | | | | | [address] | | | | | | [place] [address] | | | | | | [phone] | | | | | | | | +--------+ + + + + documented as of this encounter Visit Diagnoses Not on filedocumented in this encounter"
--- OUTSIDE RECORDS SUMMARY | ~2020-05-13 | XMS | Encounter Summary ---
Demographics + + + | Address | [address] | | | [place] [address] | + + + | Home Phone [...] | [facility] | | | and [place] | + + + | Address | Unknown | + + + | Phone | Unavailable | + + + Support + + + + + | Name | Relationship | Address | Phone | + + + + + | Araceli Sibley | ECON | [place] | | | | | [address] | | + + + + + Care Team Providers + +------+ + | Care Licensed Psychologist Name | Role | Phone | [...] + + | 08/21/ | Documentati | [facility] | Katharine Moncada, | Other (urgent | | 2019 | on | CARDIOLOGY [place] | Technologist | report) | | | | [address] | | | | | | [place] | | | | | | [address] | | | | | | [phone] | | | +--------+ + + + [...] | | | | | [place] [address] | | | | | | [phone] | | | | | | | | +--------+ + + + + | 08/28/ | Office | Cardiology | Dora De La Torre | | | 2020 | Visit | | [address] | | | | | | [address] | | | | | | [place] [address] | | | | | | [phone] | | | | | | | | +--------+ + + + + documented as of this encounter Visit Diagnoses Not on filedocumented in this encounter"
--- OUTSIDE RECORDS SUMMARY | ~2020-05-13 | XMS | Encounter Summary ---
Demographics + + + | Address | [address] | | | [place] [address] | + + + | Home Phone [...] [place], [place] | | | | | [address] | | + + + + + Care Team Providers + +------+ + | Care Building Maintenance Supervisor Name | Role | Phone | + +------+ + PCP | Unavailable | + +------+ + Encounter Details +--------+ + + + + | Date | Type | Department | Care Team | Description | +--------+ + + + + | 03/13/ | Hospital | [facility] | | | | 1996 - | Encounter | MED CTR GENERIC OP | | | | | | CONV DEPT [address] | | | | 03/21/ | | [address], | | | | 1996 | | [place] [address] | | | | | | [phone] | | | +--------+ + + + [...] [place] | | | | | | [place] [address] | | | | | | [phone] | | | | | | | | +--------+ + + + + | 08/28/ | Office | Cardiology | Dora De La Torre | | | 2019 | Visit | | [address] | | | | | | [address] | | | | | | [place] [address] | | | | | | [phone] | | | | | | | | +--------+ + + + + documented as of this encounter Visit Diagnoses Not on filedocumented in this encounter"
--- OUTSIDE RECORDS SUMMARY | ~2020-05-13 | XMS | Encounter Summary ---
Demographics + + + | Address | [address] | | | [place] [address] | + + + | Home Phone [...] [place], [place] | | | | | [address] | | + + + + + Care Team Providers + +------+ + | Care Worship Pastor Name | Role | Phone | + +------+ + PCP | Unavailable | + +------+ + Encounter Details +--------+ + + + + | Date | Type | Department | Care Team | Description | +--------+ + + + + | 01/25/ | Hospital | [facility] | | | | 2002 | Encounter | MED CTR XRAY [address] | | | | | | [address] | | | | | | [place] [address] | | | | | | [phone] | | | +--------+ + + + [...] | | | | | [place] [address] | | | | | | [phone] | | | | | | | | +--------+ + + + + | 08/28/ | Office | Cardiology | Dora De La Torre | | | 2019 | Visit | | [address] | | | | | | [address] | | | | | | [place] [address] | | | | | | [phone] | | | | | | | | +--------+ + + + + documented as of this encounter Visit Diagnoses Not on filedocumented in this encounter"
--- OUTSIDE RECORDS SUMMARY | ~2020-05-13 | XMS | Encounter Summary ---
Demographics + + + | Address | [address] | | | [place] [address] | + + + | Home Phone [...] [place] | | | | | [address] | | + + + + + Care Team Providers + +------+ + | Care Hog Grader Name | Role | Phone | [...] + | 08/15/ | Documentati | [facility] | Katharine Moncada, | Other (urgent | | 2019 | on | CARDIOLOGY [place] | Technologist | report) | | | | [address] | | | | | | [place] | | | | | | [address] | | | | | | [phone] | | | +--------+ + + + [...] | | | | | [place] [address] | | | | | | [phone] | | | | | | | | +--------+ + + + + | 08/28/ | Office | Cardiology | Dora De La Torre | | | 2020 | Visit | | [address] | | | | | | [address] | | | | | | [place] [address] | | | | | | [phone] | | | | | | | | +--------+ + + + + documented as of this encounter Visit Diagnoses Not on filedocumented in this encounter"
--- OUTSIDE RECORDS SUMMARY | ~2020-05-13 | XMS | Encounter Summary ---
Demographics + + + | Address | [address] | | | [place] [address] | + + + | Home Phone [...] [place] | | | | | [address] | | + + + + + Care Team Providers + +------+ + | Care Assembler Plastic Boat Name | Role | Phone | + [...] | 08/13/ | Documentati | [facility] | Katharine Moncada, | Other (urgent | | 2019 | on | CARDIOLOGY [place] | Technologist | report) | | | | [address] | | | | | | [place] | | | | | | [address] | | | | | | [phone] | | | +--------+ + + + [...] | | | | | [place] [address] | | | | | | [phone] | | | | | | | | +--------+ + + + + | 08/28/ | Office | Cardiology | Dora De La Torre | | | 2020 | Visit | | [address] | | | | | | [address] | | | | | | [place] [address] | | | | | | [phone] | | | | | | | | +--------+ + + + + documented as of this encounter Visit Diagnoses Not on filedocumented in this encounter"
--- OUTSIDE RECORDS SUMMARY | ~2020-05-13 | XMS | Encounter Summary ---
Demographics + + + | Address | [address] | | | [place] [address] | + + + | Home Phone [...] [place], [place] | | | | | [address] | | + + + + + Care Team Providers + +------+ + | Care Boat Tender Name | Role | Phone | + +------+ + PCP | Unavailable | + +------+ + Encounter Details +--------+ + + + + | Date | Type | Department | Care Team | Description | +--------+ + + + + | 09/23/ | Hospital | [facility] | | | | 1994 | Encounter | MED CTR LABORATORY | | | | | | [address] | | | | | | [place] | | | | | | [address] | | | | | | [phone] | | | +--------+ + + + [...] | | | | | [place] [address] | | | | | | [phone] | | | | | | | | +--------+ + + + + | 08/28/ | Office | Cardiology | Dora De La Torre | | | 2020 | Visit | | [address] | | | | | | [address] | | | | | | [place] [address] | | | | | | [phone] | | | | | | | | +--------+ + + + + documented as of this encounter Visit Diagnoses Not on filedocumented in this encounter"
--- OUTSIDE RECORDS SUMMARY | ~2020-05-13 | XMS | Encounter Summary ---
Demographics + + + | Address | [address] | | | [place] [address] | + + + | Home Phone [...] [place] | | | | | [address] | | + + + + + Care Team Providers + +------+ + | Care Chemistry Physics Teacher Name | Role | Phone | [...] + + | 08/16/ | Documentati | [facility] | Katharine Moncada, | Other (urgent | | 2019 | on | CARDIOLOGY [place] | Technologist | report) | | | | [address] | | | | | | [place] | | | | | | [address] | | | | | | [phone] | | | +--------+ + + + [...] | 06/12/ | Procedure | Cardiology | Doar De La Torre | | | 2019 | visit | | [address] | | | | | | [address] | | | | | | [place] [address] | | | | | | [phone] | | | | | | | | +--------+ + + + + | 08/28/ | Office | Cardiology | Dora De La Torre | | | 2020 | Visit | | [address] | | | | | | [address] | | | | | | [place] [address] | | | | | | [phone] | | | | | | | | +--------+ + + + + documented as of this encounter Visit Diagnoses Not on filedocumented in this encounter"
--- OUTSIDE RECORDS SUMMARY | ~2020-05-13 | XMS | Encounter Summary ---
Demographics + + + | Address | [address] | | | [place] [address] | + + + | Home Phone [...] [place], [place] | | | | | [address] | | + + + + + Care Team Providers + +------+ + | Care Price Economist Name | Role | Phone | + +------+ + PCP | Unavailable | + +------+ + Encounter Details +--------+ + + + + | Date | Type | Department | Care Team | Description | +--------+ + + + + | 02/16/ | Hospital | [facility] | | | | 1994 | Encounter | MED CTR LABORATORY | | | | | | [address] | | | | | | [place] | | | | | | [address] | | | | | | [phone] | | | +--------+ + + + [...] | | | | | [place] [address] | | | | | | [phone] | | | | | | | | +--------+ + + + + | 08/28/ | Office | Cardiology | Dora De La Torre | | | 2020 | Visit | | [address] | | | | | | [address] | | | | | | [place] [address] | | | | | | [phone] | | | | | | | | +--------+ + + + + documented as of this encounter Visit Diagnoses Not on filedocumented in this encounter"
--- OUTSIDE RECORDS SUMMARY | ~2020-05-13 | XMS | Encounter Summary ---
Demographics + + + | Address | [address] | | | [place] [address] | + + + | Home Phone [...] [place] | | | | | [address] | | + + + + + Care Team Providers + +------+ + | Care Aemt Name | Role | Phone | + [...] + + | 09/19/ | Telephone | [facility] | Ashley Chávez | Other (Patient | | 2018 | | CARDIOLOGY [place]ad, Manager Emergency Department | calling to be seen | | | | [address] | | mirella. ) | | | | [place] | | | | | | [address] | | | | | | [phone] | | | +--------+ + + + [...] Notes Telephone Encounter - Ashley Chávez Manager Emergency Department - 09/19/2019 10:41 AM PSTCall m cierra to patient to advise of Dr. Peterson's notes. Patient stated understanding. Patient asked why she couldn't be seen sooner, and I reminded her that we offered her a monae ner appointment that she turned down. Patient said thank you and hung up. [place]:MANGO. el ephone Encounter - Ashley Chávez Manager Emergency Department - 09/19/2019 10:40 AM PST Dora De La Torre, CAROLINE Peterson DO; Ashley Chávez Manager Emergency Department So just an FYI: we offered her appointment today at 3 pm but she turned it down, and said she would keep scheduled appt. el ephone Encounter - Ashley Chávez Manager Emergency Department - 09/19/2019 10:38 AM PST----- Mess age [...] she needs to be seen by a applied research director. I have asked Lizeth to call her [...] help her pulse? Please advise. Thank you! [facility] rocky in this encounter Plan of Treatment [...] [address] | | | | | | [place] [address] | | | | | | [phone] | | | | | | | | +--------+ + + + + | 08/28/ | Office | Cardiology | Dora De La Torre | | | 2020 | Visit | | [address] | | | | | | [address] | | | | | | [place] [address] | | | | | | [phone] | | | | | | | | +--------+ + + + + documented as of this encounter Visit Diagnoses Not on filedocumented in this encounter"
--- OUTSIDE RECORDS SUMMARY | ~2020-05-13 | XMS | Encounter Summary ---
Demographics + + + | Address | [address] | | | [place] [address] | + + + | Home Phone [...] [place] | | | | | [address] | | + + + + + Care Team Providers + +------+ + | Care Post Closing Specialist Name | Role | Phone | [...] + | 06/20/ | Telephone | [facility] | Frandy Teresa, | Other (surgery | | 2013 | | NEUROSURGERY [address] | DO [address] | reminder ) | | | | [address] | [address] [place], [place] | | | | | [place], [place] | [id number] | | | | | [address] | | | | | | [phone] | | | +--------+ + + + [...] [address] | | | | | | [place] [address] | | | | | | [phone] | | | | | | | | +--------+ + + + + | 08/28/ | Office | Cardiology | Dora De La Torre | | | 2019 | Visit | | [address] | | | | | | [address] | | | | | | [place] [address] | | | | | | [phone] | | | | | | | | +--------+ + + + + documented as of this encounter Visit Diagnoses Not on filedocumented in this encounter"
--- OUTSIDE RECORDS SUMMARY | ~2020-05-13 | XMS | Encounter Summary ---
Demographics + + + | Address | [address] | | | [place] [address] | + + + | Home Phone [...] [place] | | | | | [address] | | + + + + + Care Team Providers + +------+ + | Care Preschool Disability Teacher Name | Role | Phone | [...] [place] | | | | | | [address] | | | | | | [phone] | | | +--------+ + + + [...] | | | | | [place] [address] | | | | | | [phone] | | | | | | | | +--------+ + + + + | 08/28/ | Office | Cardiology | Dora De La Torre | | | 2020 | Visit | | [address] | | | | | | [address] | | | | | | [place] [address] | | | | | | [phone] | | | | | | | | +--------+ + + + + documented as of this encounter Visit Diagnoses Not on filedocumented in this encounter"
--- OUTSIDE RECORDS SUMMARY | ~2020-05-13 | XMS | Encounter Summary ---
Demographics + + + | Address | [address] | | | [place] [address] | + + + | Home Phone [...] [place] | | | | | [address] | | + + + + + Care Team Providers + +------+ + | Care Application Processor Name | Role | Phone | [...] + + | 07/24/ | Telephone | [facility] | Ashley Chávez | Other (Patient is | | 2018 | | CARDIOLOGY [place], Window Shade Cutter | worried about paying | | | | [address] | | for monitor. ) | | | | [place] | | | | | | [address] | | | | | | [phone] | | | +--------+ + + + [...] Miscellaneous Notes Telephone Encounter - Ashley Chávez, Window Shade Cutter - 07/24/2019 11:13 AM Seferino t says [...] gals to see what can be done. JDW:SANITARY LANDFILL OPERATOR-AAMA. [facility] umented in this encounter Plan of Treatment [...] [address] | | | | | | [place] [address] | | | | | | [phone] | | | | | | | | +--------+ + + + + | 08/28/ | Office | Cardiology | Dora De La Torre | | | 2019 | Visit | | [address] | | | | | | [address] | | | | | | [facility] [place] [address] | | | | | | [phone] | | | | | | | | +--------+ + + + + documented as of this encounter Visit Diagnoses Not on filedocumented in this encounter"
--- OUTSIDE RECORDS SUMMARY | ~2020-05-13 | XMS | Encounter Summary ---
Demographics + + + | Address | [address] | | | [place] [address] | + + + | Home Phone [...] [place] | | | | | [address] | | + + + + + Care Team Providers + +------+ + | Care Clinical Nutritionist Name | Role | Phone | + [...] [place] | | | | | | [address] | | | | | | [phone] | | | +--------+ + + + [...] | | | | | [place] [address] | | | | | | [phone] | | | | | | | | +--------+ + + + + | 08/28/ | Office | Cardiology | Dora De La Torre | | | 2020 | Visit | | [address] | | | | | | [address] | | | | | | [place] [address] | | | | | | [phone] | | | | | | | | +--------+ + + + + documented as of this encounter Visit Diagnoses Not on filedocumented in this encounter"
--- OUTSIDE RECORDS SUMMARY | ~2020-05-13 | XMS | Encounter Summary ---
Demographics + + + | Address | [address] | | | [place] [address] | + + + | Home Phone [...] [place] | | | | | [address] | | + + + + + Care Team Providers + +------+ + | Care Wire Rigger Name | Role | Phone | [...] [address] | | | | | [address], [place] | [place], [place] | | | | | [address] | [address] | | | | | [phone] | | | +--------+ + + + [...] | | | | | [place] [address] | | | | | | [phone] | | | | | | | | +--------+ + + + + | 08/28/ | Office | Cardiology | Dora De La Torre | | | 2019 | Visit | | [address] | | | | | | [address] | | | | | | [place] [address] | | | | | | [phone] | | | | | | | | +--------+ + + + + documented as of this encounter Visit Diagnoses Not on filedocumented in this encounter"
--- OUTSIDE RECORDS SUMMARY | ~2020-05-13 | XMS | Encounter Summary ---
Demographics + + + | Address | [address] | | | [place] [address] | + + + | Home Phone [...] [place], [place] | | | | | [address] | | + + + + + Care Team Providers + +------+ + | Care Hydroelectric Plant Structural Engineer Name | Role | Phone | + +------+ + PCP | Unavailable | + +------+ + Encounter Details +--------+ + + + + | Date | Type | Department | Care Team | Description | +--------+ + + + + | 03/26/ | Hospital | [facility] | | | | 2001 | Encounter | MED CTR LABORATORY | | | | | | [address] | | | | | | [place] | | | | | | [address] | | | | | | [phone] | | | +--------+ + + + [...] | | | | | [place] [address] | | | | | | [phone] | | | | | | | | +--------+ + + + + | 08/28/ | Office | Cardiology | Dora De La Torre | | | 2020 | Visit | | [address] | | | | | | [address] | | | | | | [place] [address] | | | | | | [phone] | | | | | | | | +--------+ + + + + documented as of this encounter Visit Diagnoses Not on filedocumented in this encounter"
--- OUTSIDE RECORDS SUMMARY | ~2020-05-13 | XMS | Encounter Summary ---
Demographics + + + | Address | [address] | | | [place] [address] | + + + | Home Phone [...] [place] | | | | | [address] | | + + + + + Care Team Providers + +------+ + | Care Raw Cheese Worker Name | Role | Phone | + +------+ + | Basim Bolanos MD | PCP | | + +------+ + Encounter Details +--------+ + + + + | Date | Type | Department | Care Team | Description | +--------+ + + + + | 01/24/ | Abstract | [facility] [place] | [facility], | | | 2012 | | GASTROENTEROLOGY | FORTUNATO Thomas [address] | | | | | [address] | [address] | | | | | [address] [place], [place] | [place], [place] | | | | | [address] | [address] | | | | | [phone] | | | +--------+ + + + [...] | | | | | [place] [address] | | | | | | [phone] | | | | | | | | +--------+ + + + + | 08/28/ | Office | Cardiology | Dora De La Torre | | | 2019 | Visit | | [address] | | | | | | [address] | | | | | | [place] [address] | | | | | | [phone] | | | | | | | | +--------+ + + + + documented as of this encounter Visit Diagnoses Not on filedocumented in this encounter"
--- OUTSIDE RECORDS SUMMARY | ~2020-05-13 | XMS | Encounter Summary ---
Demographics + + + | Address | [address] | | | [place] [address] | + + + | Home Phone [...] [place] | | | | | [address] | | + + + + + [...] | 02/01/ | Telephone | [facility] [place] | Frandy Teresa, | Imaging Only | | 2019 | | NEUROSURGERY [address] | DO [address] | | | | | [address] | [address] [place], [place] | | | | | [place] | [id number] | | | | | [address] | | | | | | [phone] | | | +--------+ + + + [...] [place] | | | | | | [facility] [place] [address] | | | | | | [phone] | | | | | | | | +--------+ + + + + | 08/28/ | Office | Cardiology | Dora De La Torre | | | 2019 | Visit | | [address] | | | | | | [address] | | | | | | [place] [address] | | | | | | [phone] | | | | | | | | +--------+ + + + + documented as of this encounter Visit Diagnoses Not on filedocumented in this encounter"
--- OUTSIDE RECORDS SUMMARY | ~2020-05-13 | XMS | Encounter Summary ---
Demographics + + + | Address | [address] | | | [place] [address] | + + + | Home Phone [...] [place] | | | | | [address] | | + + + + + Care Team Providers + +------+ + | Care Automotive Power Electronics Engineer Name | Role | Phone | [...] | | | | | | | [address] | | | | | | | Phone: | | | | | | | [phone] | | | | | | | Fax: | | | | | | | [phone] | | +--------+ + + + + + Reason for Visit + + + | Reason | Comments | + + + | Follow-up | 3 mo po | + + + Encounter Details +--------+---------+ + + + | Date | Type | Department | Care Team | Description | +--------+---------+ + + + | 09/27/ | Office | [facility] | Frandy Teresa, | Lumbar spondylosis | | 2013 | Visit | NEUROSURGERY [address] | DO [address] | (Primary Dx); S/P | | | | [address] | [address] [place], [place] | lumbar fusion | | | | [place], [place] | [address] | | | | | [address] | | | | | | [phone] | | | +--------+---------+ + + + [...] [address] [place] [address] FAX: NEUROSURGERY FOLLOW-UP CHIEF COMPLAINT: Chief Complaint [...] Laterality: N/A; Surgeon: Frandy castellanos DO; Location: [facility] MAIN OR CURRENT MEDICATIONS: Current Outpatient [...] Take 15 mg by mouth nightl y. Baldwin-3 Fatty Acids (FISH OIL CONCENTRATE) 1000 MG [...] encounter Miscellaneous Notes Miscellaneous - [facility] - 09/27/2014 12:00 AM PST documented in [...] | | | | | [place] [address] | | | | | | [phone] | | | | | | | | +--------+ + + + + | 08/28/ | Office | Cardiology | Dora De La Torre | | | 2019 | Visit | | [address] | | | | | | [address] | | | | | | [place] [address] | | | | | | [phone] | | | | | | | [...]
--- OUTSIDE RECORDS SUMMARY | ~2020-05-13 | XMS | Encounter Summary ---
Demographics + + + | Address | [address] | | | [place] [address] | + + + | Home Phone [...] [place] | | | | | [address] | | + + + + + Care Team Providers + +------+ + | Care Database Developer Name | Role | Phone | [...] | | | | | | [place], | | | | | | [place] [address] | | | | | | [phone] | | | +--------+ + + + [...] | | + +---------+ + + | [facility] DEPARTMENT OF | | | | | RADIOLOGY | | | | + +---------+ + + documented in this encounter Visit Diagnoses Not on filedocumented in this encounter"
--- OUTSIDE RECORDS SUMMARY | ~2020-05-13 | XMS | Encounter Summary ---
Demographics + + + | Address | [address] | | | [place] [address] | + + + | Home Phone [...] [place] | | | | | [address] | | + + + + + Care Team Providers + +------+ + | Care Sales & Service Associate Name | Role | Phone | [...] + | 07/29/ | Telephone | [facility] | Frandy Cagle, | Other (multiple | | 2013 | | NEUROSURGERY [address] | DO [address] | questions) | | | | [facility] [address] | [address] [place], [place] | | | | | [place], [place] | [id number] | | | | | [address] | | | | | | [phone] | | | +--------+ + + + [...] and I might get a repeat MRI. [place] ordered. Thanks. ddendum Note - Shayne Aragon [...] AM PDTCall [facility] to get fur ther information. She [...] refill be mailed to her for her [place] 10/325mg which was given to her on [...] | | | | | [place] [address] | | | | | | [phone] | | | | | | | | +--------+ + + + + | 08/28/ | Office | Cardiology | Dora De La Torre | | | 2019 | Visit | | [address] | | | | | | [address] | | | | | | [place] [address] | | | | | | [phone] | | | | | | | | +--------+ + + + + documented as of this encounter Visit Diagnoses Not on filedocumented in this encounter"
--- OUTSIDE RECORDS SUMMARY | ~2020-05-13 | XMS | Encounter Summary ---
Demographics + + + | Address | [address] | | | [place] [address] | + + + | Home Phone [...] [place] | | | | | [address] | | + + + + + Care Team Providers + +------+ + | Care Laborer Airport Maintenance Name | Role | Phone | [...] [address] | | | | | | [place], [place] | | | | | | [address] | | | +--------+ + + + [...]
--- OUTSIDE RECORDS SUMMARY | ~2020-05-13 | XMS | Encounter Summary ---
Demographics + + + | Address | [address] | | | [place] [address] | + + + | Home Phone [...] [place], [place] | | | | | [address] | | + + + + + Care Team Providers + +------+ + | Care Support Worker Name | Role | Phone | + +------+ + PCP | Unavailable | + +------+ + Encounter Details +--------+ + + + + | Date | Type | Department | Care Team | Description | +--------+ + + + + | 01/16/ | Hospital | [facility] | | | | 2002 | Encounter | MED CTR XRAY [address] | | | | | [address] | | | | | | [place] [address] | | | | | | [phone] | | | +--------+ + + + [...] | | | | | [place] [address] | | | | | | [phone] | | | | | | | | +--------+ + + + + | 08/28/ | Office | Cardiology | Dora De La Torre | | | 2019 | Visit | | [address] | | | | | | [address] | | | | | | [place] [address] | | | | | | [phone] | | | | | | | | +--------+ + + + + documented as of this encounter Visit Diagnoses Not on filedocumented in this encounter"
--- OUTSIDE RECORDS SUMMARY | ~2020-05-13 | XMS | Encounter Summary ---
Demographics + + + | Address | [address] | | | [place] [address] | + + + | Home Phone [...] [place] | | | | | [address] | | + + + + + Care Team Providers + +------+ + | Care Operations General Agent Name | Role | Phone | [...] + + | 07/30/ | Telephone | [facility] | Ashley Chávez | Other (Patient | | 2019 | | CARDIOLOGY [place] Ab[place], Director Of Clinical Services | mariela ) | | | | [address] | | | | | | [facility] [place] | | | | | | [address] | | | | | | [phone] | | | +--------+ + + + [...] Miscellaneous Notes Telephone Encounter - Ashley Chávez Director Of Clinical Services - 07/30/2019 1:40 PM Shila norton to patient to advise of Dr. Peterson's notes. Patient stated understanding. BRODY:MANGO. el ephone Encounter - Ashley Chávez, Director Of Clinical Services - 07/30/2019 1:40 PM PDT----- Mess age [...] Thanks ----- Message ----- From: Ashley Chávez Director Of Clinical Services Sent: 07/30/2019 11:47 To: Desiree Peterson DO [...] [address] | | | | | | [place] [address] | | | | | | [phone] | | | | | | | | +--------+ + + + + | 08/28/ | Office | Cardiology | Dora De La Torre | | | 2019 | Visit | | [address] | | | | | | [address] | | | | | | [place] [address] | | | | | | [phone] | | | | | | | | +--------+ + + + + documented as of this encounter Visit Diagnoses Not on filedocumented in this encounter"
--- OUTSIDE RECORDS SUMMARY | ~2020-05-13 | XMS | Encounter Summary ---
Demographics + + + | Address | [address] | | | [place] [address] | + + + | Home Phone [...] [place] | | | | | [address] | | + + + + + [...] + + | 08/20/ | Documentati | [facility] | Katharine Moncada, | Other (urgent | | 2019 | on | CARDIOLOGY [place] | Technologist | report) | | | | [address] | | | | | | [place] | | | | | | [address] | | | | | | [phone] | | | +--------+ + + + [...] | | | | | [place] [address] | | | | | | [phone] | | | | | | | | +--------+ + + + + | 08/28/ | Office | Cardiology | Dora De La Torre | | | 2020 | Visit | | [address] | | | | | | [address] | | | | | | [place] [address] | | | | | | [phone] | | | | | | | | +--------+ + + + + documented as of this encounter Visit Diagnoses Not on filedocumented in this encounter"
--- OUTSIDE RECORDS SUMMARY | ~2020-05-13 | XMS | Encounter Summary ---
Demographics + + + | Address | [address] | | | [place] [address] | + + + | Home Phone [...] [place] | | | | | [address] | | + + + + + Care Team Providers + +------+ + | Care Telephone Sales Representative Name | Role | Phone [...] + + | 09/10/ | Documentati | [facility] | Katharine Moncada, | Other (urgent | | 2019 | on | CARDIOLOGY [place] | Technologist | report) | | | | [address] | | | | | | [place] | | | | | | [address] | | | | | | [phone] | | | +--------+ + + + [...] | | | | | [place] [address] | | | | | | [phone] | | | | | | | | +--------+ + + + + | 08/28/ | Office | Cardiology | Dora De La Torre | | | 2020 | Visit | | [address] | | | | | | [address] | | | | | | [place] [address] | | | | | | [phone] | | | | | | | | +--------+ + + + + documented as of this encounter Visit Diagnoses Not on filedocumented in this encounter"
--- OUTSIDE RECORDS SUMMARY | ~2020-05-13 | XMS | Encounter Summary ---
Demographics + + + | Address | [address] | | | [place] [address] | + + + | Home Phone [...] [place] | | | | | [address] | | + + + + + Care Team Providers + +------+ + | Care Weight Loss Consultant Name | Role | Phone | [...] + + | 02/13/ | Office | [facility] | Dora De La Torre | History of atrial | | 2020 | Visit | CARDIOLOGY [place] | [address] | fibrillation | | | | [address] | [address] | (Primary Dx); New | | | | [address] | [place] [address] | onset left bundle | | | | [place] | [phone] | branch block (LBBB); | | | | [address] | | Benign essential | | | | [phone] | | HTN; History of | | [...] | | | | obesity) ([facility]) | +--------+---------+ + + + Social History [...] 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 Her LAY4JH2 VASC score is 4 (stroke, HTN, gender) [...] She has previously seen Dr. Garland in [place], and different sleep provider in [facility] when lived over there. 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 Psychiatric/Behavioral: Bipolar/Schizophrenia. Tx'd by [employer] Vaccines: Current on flu vaccine: 2019 Current on pneumonia vaccine:PPSV 23 05/29/2013 Habits/Social : Denies history of smoking. Denies EtOH use. Denies recreational or illici t drug use. Exercises sporadically. Lives in [place] . Outpatient Medications Prior to Visit Medication [...] by mouth nightly. Blood Glucose Monitoring Suppl ([employer] VERIO FLEX SYSTEM) w/Device KIT by Does [...] discomfort, patient unable to walk on eriberto dmNVELO. Resting EKG normal sinus rhythm, arrhythmias ventricular [...] nonspecific ST-T wave abnormality rate 82 bpm, RI 176 ms, QRS 80 ms, QTC 446 ms tracing personally reviewed by me EK12/17/2019: Sinus tachycardia, nonspecific ST wave abnormalities, rate 105 bpm, RI 196 ms, QRS 74 ms, QTC 430 ms, tracing personally reviewed by me, and compared to EKG performed in February 2019, rate is less well-controlled EK01/10/2020 (metoprolol XL 50 mg twice daily. Normal sinus rhythm, new left bundle bran ch block Rate 74 bpm, RI 204 ms, QRS 138 ms, QTC 488 [...] bundle branch block. Ra te 105 bpm, RI 184 ms, QRS 144 ms, QTC 489 ms, tracing personally reviewed by me, and compar ed to EKG performed in December , rate is less well-controlled LABS Labs: 12/26/2018: ( [facility])CMP: Sodium 139, potassium 4.2, chloride 99, BUN 10, creatinine 0. 7, BNP 28. CBC: WBC 7.8, hemoglobin 14.3, hematocrit 42.7, platelets 214 Labs: 09/28/2019:( [facility]) CBC: WBC 7.8, hemoglobin 14.9, hematocrit 43.8, platelets 221. C MP: Sodium 132, potassium 4.2, chloride 95, AST 76, ALT 76, alk phos 134 Labs: 10/11/2019:( [facility]) CBC: WBC 6.7, RBC 4.97, hemoglobin 15.2, hematocrit 44.7, platel ets 200. CMP: Glucose 385, BUN 7, creatinine 0.62, GFR 97, sodium 131, potassium 4.1, chlor kelby 95, albumin 4.3, total bilirubin 0.6, AST 75, ALT 73, alk phos 144. Thyroid: TSH 4.27 Labs: 10/12/2020:( [facility]) CBC: WBC 7, RBC 4.93, hemoglobin 14.7, hematocrit 44.1, platele ts 186 normal UA CMP: Glucose 381, BUN 6, creatinine 0.63, GFR 95, sodium 133, potassium 3.8 , chloride 97, albumin 4.3, total bili 0.6, AST 62, ALT 75, alk phos 145 thyroid: TSH 3.07 Labs: 10/20/2019:( [facility]) CBC: WBC 7.1, RBC 4.93, [...] reviewed her EKG and Echo with her vocational rehabilitation supervisor Dr. Peterson, who was in clin [...] Obesity, Class III, BMI 40-49.9 (morbid obesity) ([facility]) Orders Placed This Encounter Procedures ECG 12 [...] for continuity of care purp osHannah [facility] Cardiology 02/15/2020 docume nted in [...] [address] | | | | | | [place] [address] | | | | | | [phone] | | | | | | | | +--------+ + + + + | 08/28/ | Office | Cardiology | Dora De La Torre | | | 2019 | Visit | | [address] | | | | | | [address] | | | | | | [place] [address] | | | | | | [phone] | | | | | | | [...] | | | | | DORA [place] ([id number]) on | | | | | | [...]
--- OUTSIDE RECORDS SUMMARY | ~2020-05-13 | XMS | Encounter Summary ---
Demographics + + + | Address | [address] | | | [place] [address] | + + + | Home Phone [...] [place], [place] | | | | | [address] | | + + + + + Care Team Providers + +------+ + | Care Dog Handler Or Trainer Name | Role | Phone | + +------+ + PCP | Unavailable | + +------+ + Encounter Details +--------+ + + + + | Date | Type | Department | Care Team | Description | +--------+ + + + + | 12/31/ | Hospital | [facility] | | | | 1996 | Encounter | MED CTR XRAY [address] | | | | | | [address] | | | | | | [place] [address] | | | | | | [phone] | | | +--------+ + + + [...] | | | | | [place] [address] | | | | | | [phone] | | | | | | | | +--------+ + + + + | 08/28/ | Office | Cardiology | Dora De La Torre | | | 2019 | Visit | | [address] | | | | | | [address] | | | | | | [place] [address] | | | | | | [phone] | | | | | | | | +--------+ + + + + documented as of this encounter Visit Diagnoses Not on filedocumented in this encounter"
--- OUTSIDE RECORDS SUMMARY | ~2020-05-13 | XMS | Encounter Summary ---
Demographics + + + | Address | [address] | | | [place] [address] | + + + | Home Phone [...] [place] | | | | | [address] | | + + + + + Care Team Providers + +------+ + | Care Semiconductor Lab Technician Name | Role | Phone [...] | 08/26/ | Refill | [facility] [place] | Frandy Teresa, | Medication Refill | | 2013 | | NE[address]UR[address]ERY [address] | DO [address] | | | | | [address] [facility] [address] | [address] [place], [place] | | | | | [place], [place] | [id number] | | | | | [address] | | | | | | [phone] | | | +--------+--------+ + + + [...] to notify that p rescription refill for [place] has been authorized. Informed about MRI results per MD results. Also notified about new medication neurontin. Pt verbalized understanding and will notify o ur office if her numbness to bilat feet (upper and lower) doesn't improve. Pt requested refi ll rx of [place] to be mailed via certified mail to her home address at [employer] [email or web address] y signed by Megan Schreiber, [...] PSTPt called to requesting medication refill of [place]. Pt c/o l ower back and left [...] [address] | | | | | | [place] [address] | | | | | | [phone] | | | | | | | | +--------+ + + + + | 08/28/ | Office | Cardiology | Dora De La Torre | | | 2019 | Visit | | [address] | | | | | | [address] | | | | | | [place] [address] | | | | | | [phone] | | | | | | | | +--------+ + + + + documented as of this encounter Visit Diagnoses Not on filedocumented in this encounter"
--- OUTSIDE RECORDS SUMMARY | ~2020-05-13 | XMS | Encounter Summary ---
Demographics + + + | Address | [address] | | | [place] [address] | + + + | Home Phone [...] [place] | | | | | [address] | | + + + + + Care Team Providers + +------+ + | Care Javascript Ui Developer Name | Role | Phone | + +------+ + | Adrinao Patrick MD | PCP | | + [...] [place] | | | | | | [address] | | | | | | [phone] | | | +--------+ + + + [...] | | | | | [place] [address] | | | | | | [phone] | | | | | | | | +--------+ + + + + | 08/28/ | Office | Cardiology | [facility] | | | 2020 | Visit | | [address] | | | | | | [address] | | | | | | [place] [address] | | | | | | [phone] | | | | | | | | +--------+ + + + + documented as of this encounter Visit Diagnoses Not on filedocumented in this encounter"
--- OUTSIDE RECORDS SUMMARY | ~2020-05-13 | XMS | Encounter Summary ---
Demographics + + + | Address | [address] [facility] [address] | | | [place] [address] | + + + | Home Phone [...] [place] | | | | | [address] | | + + + + + Care Team Providers + +------+ + | Care Special Education Superintendent Name | Role | Phone | [...] | | | | | | [place], | | | | | | [place] [address] | | | | | | [phone] | | | +--------+ + + + [...] | | + +---------+ + + | [facility] DEPARTMENT OF | | | | | RADIOLOGY | | | | + +---------+ + + documented in this encounter Visit Diagnoses Not on filedocumented in this encounter"
--- OUTSIDE RECORDS SUMMARY | ~2020-05-13 | XMS | Encounter Summary ---
Demographics + + + | Address | [address] | | | [place] [address] | + + + | Home Phone [...] [place] | | | | | [address] | | + + + + + Care Team Providers + +------+ + | Care Wrapper Stripper Name | Role | Phone | [...] + + | 08/28/ | Telephone | [facility] | Ashley Chávez | Other (Patient has | | 2018 | | CARDIOLOGY [place]ad, Telephone Station Repairer | questions about | | | | [address] | | monitor. ) | | | | [place] | | | | | | [address] | | | | | | [phone] | | | +--------+ + + + [...] Miscellaneous Notes Telephone Encounter - Ashley Chávez, Telephone Station Repairer - 08/28/2019 8:32 AM Rory foster says [...] that if she chooses. Patient stated understanding. JPolloW:LABOR RELATIONS WORKER-AAMA. [facility] umented in this encounter Plan of [...] [address] | | | | | | [place] [address] | | | | | | [phone] | | | | | | | | +--------+ + + + + | 08/28/ | Office | Cardiology | Dora De La Torre | | | 2020 | Visit | | [address] | | | | | | [address] | | | | | | [place] [address] | | | | | | [phone] | | | | | | | | +--------+ + + + + documented as of this encounter Visit Diagnoses Not on filedocumented in this encounter"
--- OUTSIDE RECORDS SUMMARY | ~2020-05-13 | XMS | Encounter Summary ---
Demographics + + + | Address | [address] [facility] [address] | | | [place] [address] | + + + | Home Phone [...] [place] | | | | | [address] | | + + + + + Care Team Providers + +------+ + | Care Hospice Clinical Marketer Name | Role | Phone | [...] | Transcriptions | + + | Interface, Cardiac Exercise Specialist In - 10/24/2006 3:09 AM PST | | [facility] | | Road [place], [place] [address] [place] | | [facility] HospitalOPERATION RECORDMed Rec No.: [id number] Date: | [...]
--- OUTSIDE RECORDS SUMMARY | ~2020-05-13 | XMS | Encounter Summary ---
Demographics + + + | Address | [address] | | | [place] [address] | + + + | Home Phone [...] [place] | | | | | [address] | | + + + + + Care Team Providers + +------+ + | Care Director Of Instruction Name | Role | Phone | + +------+ + PCP | Unavailable | + +------+ + Encounter Details +--------+ + + + + | Date | Type | Department | Care Team | Description | +--------+ + + + + | 04/27/ | Hospital | [facility] | Sage Garza MD | | | 2001 | Encounter | HOSPITAL EMERGENCY | | | | | | CENTER [address] | | | | [address] [place], [place] | | | | | | [address] | | | | | | [phone] | | | +--------+ + + + [...] | | | | | [place] [address] | | | | | | [phone] | | | | | | | | +--------+ + + + + | 08/28/ | Office | Cardiology | Dora De La Torre | | | 2020 | Visit | | [address] | | | | | | [address] | | | | | | [place] [address] | | | | | | [phone] | | | | | | | | +--------+ + + + + documented as of this encounter Visit Diagnoses Not on filedocumented in this encounter"
--- OUTSIDE RECORDS SUMMARY | ~2020-05-13 | XMS | Encounter Summary ---
Demographics + + + | Address | [address] | | | [place] [address] | + + + | Home Phone [...] [place] | | | | | [address] | | + + + + + Care Team Providers + +------+ + | Care Gate Person Name | Role | Phone | [...] + | 12/03/ | Refill | [facility] | Frandy Teresa, | Medication Refill | | 2014 | | NEUROSURGERY [address] | DO [address] | | | | | [facility] | [address] [place], [place] | | | | | [place], [place] | [id number] | | | | | [address] | | | | | | [phone] | | | +--------+--------+ + + + [...] office and the number we have in [facility] is not correct. Art Andersen NP Chart notes faxed to [phone] along with medication list. Sent request to update contac t information in [facility] To Kathy @ [facility] Support Team documented in this encounter [...] [address] | | | | | | [place] [address] | | | | | | [phone] | | | | | | | | +--------+ + + + + | 08/28/ | Office | Cardiology | Dora De La Torre | | | 2019 | Visit | | [address] | | | | | | [address] | | | | | | [place] [address] | | | | | | [phone] | | | | | | | | +--------+ + + + + documented as of this encounter Visit Diagnoses Not on filedocumented in this encounter"
--- OUTSIDE RECORDS SUMMARY | ~2020-05-13 | XMS | Encounter Summary ---
Demographics + + + | Address | [address] | | | [place] [address] | + + + | Home Phone [...] [place] | | | | | [address] | | + + + + + Care Team Providers + +------+ + | Care Solar Installation Manager Name | Role | Phone | + +------+ + | Hari Samson DO | PCP | | + +------+ + Encounter Details +--------+ + + + + | Date | Type | Department | Care Team | Description | +--------+ + + + + | 06/12/ | Hospital | [facility] | Frandy Teresa, | No Show | | 2014 | Encounter | MED CTR | DO [address] | | | | | ELECTRODIAGNOSTICS | [address] [place], [place] | | | | | [address] [place] | [address] | | | | | [place] [address] | | | | | | [phone] | | | +--------+ + + + [...] | | | | | [place] [address] | | | | | | [phone] | | | | | | | | +--------+ + + + + | 08/28/ | Office | Cardiology | Dora De La Torre | | | 2020 | Visit | | [address] | | | | | | [address] | | | | | | [place] [address] | | | | | | [phone] | | | | | | | | +--------+ + + + + documented as of this encounter Visit Diagnoses Not on filedocumented in this encounter"
--- OUTSIDE RECORDS SUMMARY | ~2020-05-13 | XMS | Encounter Summary ---
Demographics + + + | Address | [address] | | | [place] [address] | + + + | Home Phone [...] [place] | | | | | [address] | | + + + + + Care Team Providers + +------+ + | Care Director Sanitation Bureau Name | Role | Phone | + [...] | | | [address] [place] | [place] [address] | | | | | [place] [address] | | | | | | [phone] | | | +--------+ + + + [...] [address] | | | | | | [place] [address] | | | | | | [phone] | | | | | | | | +--------+ + + + + | 08/28/ | Office | Cardiology | Dora De La Torre | | | 2019 | Visit | | [address] | | | | | | [address] | | | | | | [place] [address] | | | | | | [phone] | | | | | | | [...]
--- OUTSIDE RECORDS SUMMARY | ~2020-05-13 | XMS | Encounter Summary ---
Demographics + + + | Address | [address] | | | [place] [address] | + + + | Home Phone [...] [place], [place] | | | | | [address] | | + + + + + Care Team Providers + +------+ + | Care Inspector Assemblies And Installations Name | Role | Phone | + +------+ + PCP | Unavailable | + +------+ + Encounter Details +--------+ + + + + | Date | Type | Department | Care Team | Description | +--------+ + + + + | 01/26/ | Hospital | [facility] | [place], | | | 2011 | Encounter | MED CTR XRAY [address] | MD [address] | | | | | [address] [place] | [place] | | | | | [place] [address] | [address] | | | | | [phone] | | | +--------+ + + + [...] [address] | | | | | | [place] [address] | | | | | | [phone] | | | | | | | | +--------+ + + + + | 08/28/ | Office | Cardiology | Dora De La Torre | | | 2019 | Visit | | [address] | | | | | | [address] | | | | | | [place] [address] | | | | | | [phone] | | | | | | | [...] Performed At | + + + | [facility] | [place] | | [address] [facility] [place] | [email or web address] | | BILATERAL KNEES, THREE VIEWS: [...] Transcribed | | | Date/Time: 01/27/2012 17:18 Police Shift Commander: | | | <Electronically Signed by Willie Perry MD> 01/27/12 7104 | | + + + + + | Procedure Note | + + | Juan, Rad Conversion - 11/30/2013 5:03 PM [facility] | | Diagnostic Imaging Department [address] [place] [address] | | BILATERAL KNEES, THREE VIEWS: 01/27/2012 [...] 17:12 | |Transcribed Date/Time: 01/27/2012 17:18 | |Police Shift Commander: | |<Electronically Signed by Willie Perry MD> 01/27/122253 | + + + +---------+ + + | Performing | Address | City/State/Zipcode | Phone Number | | Organization | | | | + +---------+ + + | [place] | | | | | [facility] | | | | + +---------+ + + documented in this encounter Visit Diagnoses Not on filedocumented in this encounter"
--- OUTSIDE RECORDS SUMMARY | ~2020-05-13 | XMS | Encounter Summary ---
Demographics + + + | Address | [address] | | | [place] [address] | + + + | Home Phone [...] [place], [place] | | | | | [address] | | + + + + + Care Team Providers + +------+ + | Care Carbon Rod Inserter Name | Role | Phone | + +------+ + PCP | Unavailable | + +------+ + Encounter Details +--------+ + + + + | Date | Type | Department | Care Team | Description | +--------+ + + + + | 09/24/ | Hospital | [facility] | | | | 1993 | Encounter | MED CTR LABORATORY | | | | | | [address] | | | | | | [place] | | | | | | [address] | | | | | | [phone] | | | +--------+ + + + [...] | | | | | [place] [address] | | | | | | [phone] | | | | | | | | +--------+ + + + + | 08/28/ | Office | Cardiology | Dora De La Torre | | | 2020 | Visit | | [address] | | | | | | [address] | | | | | | [place] [address] | | | | | | [phone] | | | | | | | | +--------+ + + + + documented as of this encounter Visit Diagnoses Not on filedocumented in this encounter"
--- OUTSIDE RECORDS SUMMARY | ~2020-05-13 | XMS | Encounter Summary ---
Demographics + + + | Address | [address] | | | [place] [address] | + + + | Home Phone [...] [place] | | | | | [address] | | + + + + + Care Team Providers + +------+ + | Care Fruit Packer Name | Role | Phone | [...] | | | | | pain, | [place], [place] | | | | | | bilateral | [address] | | | | | | Degenerative | Phone: | | | | | | disc | [phone] | | | | | | disease, | Fax: | | | | | | lumbar | [phone] | | | | | | Spinal [...] [address] | [address] [place], [place] | (Primary Dx); Knee | | | | [place], [place] | [address] | pain, bilateral; | | | | [address] | | DEGENERATIVE DISC | | | | [phone] | | DISEASE, LUMBAR | | | [...] | | | | | [place] [address] | | | | | | [phone] | | | | | | | | +--------+ + + + + | 08/28/ | Office | Cardiology | Dora De La Torre | | | 2020 | Visit | | [address] | | | | | | [address] | | | | | | [place] [address] | | | | | | [phone] | | | | | | | [...]
--- OUTSIDE RECORDS SUMMARY | ~2020-05-13 | XMS | Encounter Summary ---
Demographics + + + | Address | [address] | | | [place] [address] | + + + | Home Phone [...] [place] | | | | | [address] | | + + + + + Care Team Providers + +------+ + | Care Hydraulic Oil Tool Operator Name | Role | Phone | + +------+ + | Adriano Patrick MD | PCP | | + +------+ + Encounter Details +--------+ + + + + | Date | Type | Department | Care Team | Description | +--------+ + + + + | 05/16/ | Orders Only | [facility] | Provider, | | | 2018 | | SYSTEM GENERIC OP | MD [address] | | | | | CONVERSION [address] | [address] | | | | | [address] [place], [place] | [place] [address] | | | | | [address] | | | | | | [phone] | | | +--------+ + + + [...] | | | | | [place] [address] | | | | | | [phone] | | | | | | | | +--------+ + + + + | 08/28/ | Office | Cardiology | Dora De La Torre | | | 2020 | Visit | | [address] | | | | | | [address] | | | | | | [place] [address] | | | | | | [phone] | | | | | | | | +--------+ + + + + documented as of this encounter Visit Diagnoses Not on filedocumented in this encounter"
--- OUTSIDE RECORDS SUMMARY | ~2020-05-13 | XMS | Encounter Summary ---
Demographics + + + | Address | [address] [facility] [address] | | | [place] [address] | + + + | Home Phone | | + + + | Preferred Language | Unknown | + + + | Marital Status | Single | + + + | Baptism Affiliation | Unknown | + + + [...] [place] | | | | | [address] | | + + + + + Care Team Providers + +------+ + | Care Onboarding Specialist Name | Role | Phone | [...] [id number] | | | | | | [place], [place] | | | | | | [address] | | | | | | [phone] | | | +--------+ + + + [...] | [facility] | [address] | [place] [address] | | | PATHOLOGY | [address] [...] Re | | | | | | [address] | | | | + + + + + + + + | Specimen | + + | | + + + + + + + | Performing | Address | City/State/Zipcode | Phone Number | | Organization | | | | + + + + + | [facility] | [address] | [place] [address] | | | PATHOLOGY | [address] [...] Re | | | | | | [address] | | | | + + + + + + + + | Specimen | + + | | + + + + + + + | Performing | Address | City/State/Zipcode | Phone Number | | Organization | | | | + + + + + | [facility] | [address] | [place] [address] | | | PATHOLOGY | [address] [...] Re | | | | | | [address] | | | | + + + + + + + + | Specimen | + + | | + + + + + + + | Performing | Address | City/State/Zipcode | Phone Number | | Organization | | | | + + + + + | [facility] | [address] | [place] [address] | | | PATHOLOGY | [address] [...] Re | | | | | | [address] | | | | + + + + + + + + | Specimen | + + | | + + + + + + + | Performing | Address | City/State/Zipcode | Phone Number | | Organization | | | | + + + + + | [facility] | [address] | [place] [address] | | | PATHOLOGY | [address] | | | + + + + + documented in this encounter Visit Diagnoses Not on filedocumented in this encounter"
--- OUTSIDE RECORDS SUMMARY | ~2020-05-13 | XMS | Encounter Summary ---
Demographics + + + | Address | [address] | | | [place] [address] | + + + | Home Phone [...] [place] | | | | | [address] | | + + + + + Care Team Providers + +------+ + | Care Developing Machine Tender Name | Role | Phone [...] [place] | | | | | | [address] | | | | | | [phone] | | | +--------+ + + + [...] | | | | | [place] [address] | | | | | | [phone] | | | | | | | | +--------+ + + + + | 08/28/ | Office | Cardiology | Dora De La Torre | | | 2020 | Visit | | [address] | | | | | | [address] | | | | | | [place] [address] | | | | | | [phone] | | | | | | | | +--------+ + + + + documented as of this encounter Visit Diagnoses Not on filedocumented in this encounter"
--- OUTSIDE RECORDS SUMMARY | ~2020-05-13 | XMS | Encounter Summary ---
Demographics + + + | Address | [address] | | | [place] [address] | + + + | Home Phone [...] [place], [place] | | | | | [address] | | + + + + + Care Team Providers + +------+ + | Care Clinical Research Director Name | Role | Phone [...] [place] | | | | | | [address] | | | | | | [phone] | | | +--------+ + + + [...] | | | | | [place] [address] | | | | | | [phone] | | | | | | | | +--------+ + + + + | 08/28/ | Office | Cardiology | Dora De La Torre | | | 2020 | Visit | | [address] | | | | | | [address] | | | | | | [place] [address] | | | | | | [phone] | | | | | | | | +--------+ + + + + documented as of this encounter Visit Diagnoses Not on filedocumented in this encounter"
--- OUTSIDE RECORDS SUMMARY | ~2020-05-13 | XMS | Encounter Summary ---
Demographics + + + | Address | [address] | | | [place] [address] | + + + | Home Phone [...] [place] | | | | | [address] | | + + + + + Care Team Providers + +------+ + | Care Bowling Ball Mold Assembler Name | Role | Phone | [...] | | | | | atrial | CHIEF CUSTOMER OFFICER [address] | [address] | | | | | fibrillation | [address] | [address] | | | | | History of | [address] | [place], [place] | | | | | stroke | [place], [place] | [address] | | | | | Sinus | [address] | Phone: | | | | | tachycardia | Phone: | [phone] | | | | | by | [phone] | Fax: | | | | | electrocardi | Fax: | [phone] | | | | | ogram New | [phone] | | | | | | onset [...] + + | 01/09/ | Office | [facility] | Roxannmiguel ángelDora | History of atrial | | 2020 | Visit | CARDIOLOGY [place] | [address] | fibrillation | | | | [address] | [address] | (Primary Dx); Benign | | | | [address] | [place] [address] | essential HTN; | | | | [place], [place] | [phone] | History of | | | | [address] | | hypothyroidism; | | | | [phone] | | Stress | | | | [...] an urgent Echo to be done at [facility] to follow up on new left bundle [...] of fatigue and shortness of breath. 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 She reports after she lost 160 pounds with a gastric sleeve that she was retested for sle ep apnea 2 years ago, and told the results negative, but has not had CPAP for 3 years She has previously seen Dr. Garland in [place], and different sleep provider in [facility] when lived over there. She reports [...] thirst or hunger. Psychiatric/Behavioral: Bipolar/Schizophrenia. Tx'd by [employer] Vaccines: Current on flu vaccine: 2019 Current on pneumonia vaccine:PPSV 23 05/29/2013 Habits/Social : Denies history of smoking. Denies EtOH use. Denies recreational or illici t drug use. Exercises sporadically. Lives in [place] . Outpatient Medications Prior to Visit Medication [...] by mouth nightly. Blood Glucose Monitoring Suppl ([employer] VERIO FLEX SYSTEM) w/Device KIT by Does [...] s better controlled. LABS Labs: 12/26/2018: ( [facility])CMP: Sodium 139, potassium 4.2, chloride 99, BUN 10, creatinine 0. 7, BNP 28. CBC: WBC 7.8, hemoglobin 14.3, hematocrit 42.7, platelets 214 Labs: 09/28/2019:( [facility]) CBC: WBC 7.8, hemoglobin 14.9, hematocrit 43.8, platelets 221. C MP: Sodium 132, potassium 4.2, chloride 95, AST 76, ALT 76, alk phos 134 Labs: 10/11/2019:( [facility]) CBC: WBC 6.7, RBC 4.97, hemoglobin 15.2, hematocrit 44.7, platel ets 200. CMP: Glucose 385, BUN 7, creatinine 0.62, GFR 97, sodium 131, potassium 4.1, chlor kelby 95, albumin 4.3, total bilirubin 0.6, AST 75, ALT 73, alk phos 144. Thyroid: TSH 4.27 Labs: 10/12/2020:( [facility]) CBC: WBC 7, RBC 4.93, [...] and reviewed her EKG results with her vocational nurse lvn, Dr. Peterson, who is in the cli vickie today, and the plan is to get an updated echo to evaluate her for any new wall motion ab normalities. If she has any wall motion abnormalities, she will need to have further evalua tion for ischemic heart disease in [place] such as a stress test or angiogram I reviewed her EKG with her, and discussed this plan with her. The Echo will be ordered on an urgent basis, is currently a restriction on all nonurgent testing at [facility] . She was agreeable to this plan [...] of care purp ose [facility] Cardiology 01/10/2020 docume nted in this [...] [address] | | | | | | [place] [address] | | | | | | [phone] | | | | | | | | +--------+ + + + + | 08/28/ | Office | Cardiology | Dora De La Torre | | | 2019 | Visit | | [address] | | | | | | [address] | | | | | | [place] [address] | | | | | | [phone] | | | | | | | [...] | | | | | | [place] ([id number]) on | | | | | | [...]
--- OUTSIDE RECORDS SUMMARY | ~2020-05-13 | XMS | Encounter Summary ---
Demographics + + + | Address | [address] | | | [place] [address] | + + + | Home Phone [...] [place] | | | | | [address] | | + + + + + Care Team Providers + +------+ + | Care Scrub Tech Name | Role | Phone | [...] | 02/27/ | Telephone | [facility] | Katharine Cardona PA-C | Appointment (New | | 2014 | | MEDICINE [address] [place] | Patient) | | | | [place], | [place] [address] | | | | | [place] [address] | [phone] | | | | | [phone] | | | +--------+ + + + [...] patients. Those patients are re ferred to [facility]. Cindy stated that would be fine with her. She stated she is 7 months post-back surgery per Dr. Teresa and only uses the hydrocodone and oxycodone occ asionally. She said she is trying to get off the oxycodone completely. Cindy said she saw Dr. Newman this morning to address her myositis issues. [facility] Appointment scheduled for 03-06-15 with Katharine [...] | | | | | [place] [address] | | | | | | [phone] | | | | | | | | +--------+ + + + + | 08/28/ | Office | Cardiology | Dora De La Torre | | 2019 | Visit | | [address] | | | | | | [address] | | | | | | [place] [address] | | | | | | [phone] | | | | | | | | +--------+ + + + + documented as of this encounter Visit Diagnoses Not on filedocumented in this encounter"
--- OUTSIDE RECORDS SUMMARY | ~2020-05-13 | XMS | Encounter Summary ---
Demographics + + + | Address | [address] | | | [place] [address] | + + + | Home Phone [...] [place], [place] | | | | | [address] | | + + + + + Care Team Providers + +------+ + | Care Plant Protection Supervisor Name | Role | Phone | + +------+ + PCP | Unavailable | + +------+ + Encounter Details +--------+ + + + + | Date | Type | Department | Care Team | Description | +--------+ + + + + | 09/10/ | Hospital | [facility] | | | | 1992 | Encounter | MED CTR LABORATORY | | | | | | [address] | | | | | | [place] | | | | | | [address] | | | | | | [phone] | | | +--------+ + + + [...] | | | | | [place] [address] | | | | | | [phone] | | | | | | | | +--------+ + + + + | 08/28/ | Office | Cardiology | Dora De La Torre | | | 2020 | Visit | | [address] | | | | | | [address] | | | | | | [place] [address] | | | | | | [phone] | | | | | | | | +--------+ + + + + documented as of this encounter Visit Diagnoses Not on filedocumented in this encounter"
--- OUTSIDE RECORDS SUMMARY | ~2020-05-13 | XMS | Clinical Summary ---
Demographics + + + | Address | [address] | | | [place] [address] | + + + | Home Phone [...] [place] | | | | | [address] | | + + + + + Care Team Providers + +------+ + | Care Documentation Coordinator Name | Role | Phone | + +------+ + | Hari Sasmon DO | PCP | | + +------+ [...] | | | | e | | ([facility] VERIO FLEX | | | | | [...] | | | | | | ([facility]); Mild | | | | | | hyperlipidemia; | | | | | | Benign essential | | | | | | HTN; Poorly | | | | | | controlled type 2 | | | | | | diabetes mellitus | | | | | | ([facility]); Syncope, | | | | [...] | | | | | type ([facility]); Rapid | | | | [...] | | | | | obesity) ([facility]); | | | | | | History of atrial | | | | | | fibrillation; | | | | | | History of sleep | | | | | | apnea | +--------+ + + + + | 02/13/ Office | Cardiology | Dora De La [...] | | | | obesity) (HCC) | +--------+ + + + + from [...] | | | | | [place] [address] | | | | | | [phone] | | | | | | | | +--------+ + + + + | 08/28/ | Office | Cardiology | Dora De La Torre | | | 2019 | Visit | | [address] | | | | | | [address] | | | | | | [place] [address] | | | | | | [phone] | | | | | | | [...] + | Med Mgmt: HBA1C | | | | | | 5 | | | + + + + + | Med Mgmt: HCT | | | | | | 5 | | | + + + + + | Med Mgmt: HDL | | | | | | 5 | | | + + + + + | Med Mgmt: HGB | | | | | | 5 | | | + + + + + | Med Mgmt: LDL | | | | | | 5 | | | + + + + + | Med Mgmt: PLT | | | | | | 5 | | | + + + + + | Med Mgmt: RBC | | | | | | 5 | | | + + + + + | Med Mgmt: Total | | | | | Cholesterol | 5 | | | + + + + + | Med Mgmt: | | | | | Triglycerides | 5 | | | + + + + + | Med Mgmt: WBC | | | | | | 5 [...] | [employer] - | | 04/02/ | [id number] | | 5ccImplanted: Qty: 1 on | | Spine | MEDT | | 2019 | | | 07/02/2014 by Frandy Teresa | | Lumbar | | | | /[id number] | | A, DO at [facility] | | | | | | 6-020 | | [facility] | | | | | | / | + +------+--------+ +--------+--------+--------+ | Graft Infuse Bone Kit Xxs - | | N/A: | SOFAMOR | | 01/21/ | [id number] | | [id number]: Qty: 1 on | | Spine | DANEK - DIV | | 2014 | 0 / | | 07/02/2014 by Frandy Teresa | | Lumbar | [employer] | | | /[id number] | | A, DO at [facility] | | | - SFDK | | | 06AAH | | [facility] | | | | | | | + +------+--------+ +--------+--------+--------+ | Imp Spn Spcr Cpstn 8x26mm - | | N/A: | [facility]OR | | 01/11/ | [id number] | | [id number]: Qty: 1 on | | Spine | DANEK - DIV | | 2021 | 6 / | | 07/02/2014 by Frandy Teresa | | Lumbar | [employer] | | | /[id number] | | DO Ronak at [facility] | | | - SFDK | | | 928 | | [facility] | | | | | | | + +------+--------+ +--------+--------+--------+ | Set Scrw Ns G5 Brk Off Ti | | N/A: | SOFAMOR | | | [id number] | | 4.75 - [id number]: | | Spine | DANEK - DIV | | | 0 / / | | Qty: 4 on 07/02/2014 by | | Lumbar | [employer] | | | | | Frandy Teresa DO at [facility] | | | - SFDK | | | | | [facility] | | | | | | | | CENTER | | | | | | | + +------+--------+ +--------+--------+--------+ | RodImplanted: Qty: 1 on | | N/A: | | | | [id number] | | 07/02/2014 by Frandy Teresa | | Spine | | | | 540 / | | DO Ronak at [facility] | | Lumbar | | | | / | | [facility] | | | | | | | + +------+--------+ +--------+--------+--------+ | RodImplanted: Qty: 1 on | | N/A: | MEDTROL - | | | [id number] | | 07/02/2014 by Frandy Teresa | | Spine | MDTR | | | 545 / | | ADO at [facility] | | Lumbar | | | | / | | [facility] | | | | | | | + +------+--------+ +--------+--------+--------+ | Screw 7.5x50mm Sextant - | | N/A: | [employer] - | | | [id number] | | [id number]: Qty: 1 on | | Spine | MEDT | | | [id number] | | 07/02/2014 by Frandy Teresa | | Lumbar | | | | / / | | ADO at [facility] | | | | | | | | [facility] | | | | | | | + +------+--------+ +--------+--------+--------+ | Cannulated ScrewImplanted: | | N/A: | MEDTROL - | | | [id number] | | Qty: 1 on 07/02/2014 by | | Spine | MDTR | | | [id number] | | Frandy Teresa DO at [facility] | | Lumbar | | | | / / | | [facility] | | | | | | | | CENTER | | | | | | | + +------+--------+ +--------+--------+--------+ | Cannulated ScrewImplanted: | | N/A: | [employer] - | | | [id number] | | Qty: 1 on 07/02/2014 by | | Spine | MEDT | | | [id number] | | Frandy Teresa DO at [facility] | | Lumbar | | | | / / | | [facility] | | | | | [...] | | | | | obesity) ([facility]) | | + +--------+ + + + from Last 3 Months Results LABS - EXTERNAL SCAN (04/20/2020 12:00 AM PDT) + + + | Narrative | Performed At | + + + | Ordered by an | | | unspecified provider. | | + + + ECG 12 lead (04/03/2020 10:23 AM PDT)Only [...] | | | | | [place] (7350) on | | | | | | [...] +--------+ +---------+--------+ | MEDICARE | MEDICA | [id number] | 02/22/20 | [phone] | | Medica | | | RE | | 09-Pre | 5 | | re | | | PART A | | sent | | | | | | AND B | | | | | | + +--------+ +--------+ +---------+--------+ | MEDICARE | MEDICA | [id number] | 02/22/20 | [phone] | | Medica [...] | | 1955 | [phone] | [address] [place] | | | [place]onte | | | 1 (Home) | [address] | + +--------+ +--------+ + + | Cindy Arndt | Person | Self | [birth year] | [address] | | | al/Fam | | 1955 | [phone] | [address] [place] | | | [place] | | | 1 (Home) | [address] | + +--------+ +--------+ + + Advance Directives + + + + + | Type | Date Recorded | Patient | Explanation | | | | Resistance Welder | | + + + + + | Power of | | | | | Communication Specialist | | | | + + + [...]
--- OUTSIDE RECORDS SUMMARY | ~2020-05-13 | XMS | Encounter Summary ---
Demographics + + + | Address | [address] | | | [place] [address] | + + + | Home Phone [...] Author + + + | Author | [facility] | + + + | Organization | [facility] | + + + | Address | Unknown | + + + | Phone | Unavailable | + + + Support + + + + + | Name | Relationship | Address | Phone | + + + + + | Kelsy Bautista | ECON | [address] | | | | | [place] | | | | | [address] | | + + + + + Care Team Providers + +------+ + | Care Make Up Operator Name | Role | Phone [...] | | | | | | [place] [address] | | | | | | [phone] | | | | | | | [...] in | | | | | | [place] with a | | | | | [...] [facility] | | | | | | [facility] | | | | | | Laboratory, [place], | | | | | | [place] [...] by | | | | | | jownaoepSdf-Pum-Z: | | | | | | Increased [...] istryMHC-1: | | | | | | IyylcztrMB42 stain | | | | | | [...] [facility] | [address] | [place] [address] | | | PATHOLOGY | [place] | | | + + + + + documented in this encounter Visit Diagnoses Not on filedocumented in this encounter
--- OUTSIDE RECORDS SUMMARY | ~2020-05-13 | XMS | Encounter Summary ---
Demographics + + + | Address | [address] | | | [place] [address] | + + + | Home Phone [...] [place], [place] | | | | | [address] | | + + + + + Care Team Providers + +------+ + | Care Net Developer Consultant Name | Role | Phone | + +------+ + PCP | Unavailable | + +------+ + Encounter Details +--------+ + + + + | Date | Type | Department | Care Team | Description | +--------+ + + + + | 02/02/ | Hospital | [facility] | | | | 1997 - | Encounter | MED CTR GENERIC PSY | | | | | | CONV DEPT [address] | | | | 02/05/ | | [address] [place], | | | | 1997 | | [place] [address] | | | | | | [phone] | | | +--------+ + + + [...] [address] | | | | | | [place] [address] | | | | | | [phone] | | | | | | | | +--------+ + + + + | 08/28/ | Office | Cardiology | Dora De La Torre | | | 2019 | Visit | | [address] | | | | | | [address] | | | | | | [place] [address] | | | | | | [phone] | | | | | | | | +--------+ + + + + documented as of this encounter Visit Diagnoses Not on filedocumented in this encounter"
--- OUTSIDE RECORDS SUMMARY | ~2020-05-13 | XMS | Encounter Summary ---
Demographics + + + | Address | [address] | | | [place] [address] | + + + | Home Phone [...] [place] | | | | | [address] | | + + + + + Care Team Providers + +------+ + | Care Media Services Specialist Name | Role | Phone [...] | | | | | [address] | [place], [place] | | | | | [place], [place] | [address] | | | | | [address] | | | | | | [phone] | | | +--------+ + + + [...] EVALUATION Cindy Arndt 58 y.o. female 1955 [id number] Scheduled procedure LAMINECTOMY PLIF/TLIF INSTRUMENTATION [1842] - [...] [address] | | | | | | [address] | | | | | | [place] [address] | | | | | | [phone] | | | | | | | | +--------+ + + + + | 08/28/ | Office | Cardiology | Dora De La Torre | | | 2020 | Visit | | [address] | | | | | | [address] | | | | | | [place] [address] | | | | | | [phone] | | | | | | | | +--------+ + + + + documented as of this encounter Visit Diagnoses Not on filedocumented in this encounter"
--- OUTSIDE RECORDS SUMMARY | ~2020-05-13 | XMS | Encounter Summary ---
Demographics + + + | Address | [address] | | | [place] [address] | + + + | Home Phone [...] [place] | | | | | [address] | | + + + + + Care Team Providers + +------+ + | Care Inside Sales Account Representative Name | Role | Phone | + +------+ + | Natalee Andersen NP | PCP | | + +------+ + Encounter Details +--------+ + + + + | Date | Type | Department | Care Team | Description | +--------+ + + + + | 06/26/ | Hospital | [facility] | Heather Cordero PT | | | 2014 | Encounter | MED CTR ACUTE | [address] | | | | | PHYSICAL THERAPY | [place] | | | | | [address] | [address] | | | | | [place] [address] | | | | | | [phone] | | | +--------+ + + + [...] + + + +---------+ + + | [place]-3 Fatty | Take 1,000 mg by | [...] | | | | | [place] [address] | | | | | | [phone] | | | | | | | | +--------+ + + + + | 08/28/ | Office | Cardiology | Dora De La Torre | | | 2020 | Visit | | [address] | | | | | | [address] | | | | | | [place] [address] | | | | | | [phone] | | | | | | | | +--------+ + + + + documented as of this encounter Visit Diagnoses Not on filedocumented in this encounter"
--- OUTSIDE RECORDS SUMMARY | ~2020-05-13 | XMS | Encounter Summary ---
Demographics + + + | Address | [address] | | | [place] [address] | + + + | Home Phone [...] [place] | | | | | [address] | | + + + + + Care Team Providers + +------+ + | Care Manager Desktop Name | Role | Phone | + [...] | | | | | ECHO | [place], [place] | | | | | | Complete | [address] | | | | | | | Phone: | | | | | | | [phone] | | | | | | | Fax: | | | | | | | [phone] | | + +--------+ + + + + Reason for Visit + + + | Reason | Comments | + + + | Follow-up | 6 month | + + + Encounter Details +--------+---------+ + + + | Date | Type | Department | Care Team | Description | +--------+---------+ + + + | 04/03/ | Office | [facility] | Desiree Peterson DO | Left bundle branch | | 2020 | Visit | CARDIOLOGY [place] | [address] | block (Primary Dx); | | | | [address] | [place], [place] | Benign essential | | | | [address] | [address] | HTN; New onset left | | | | [place], [place] | | bundle branch block | | | | [address] | | (LBBB); Obesity, | | | | [phone] | | Class III, BMI | | | | | | 40-49.9 (morbid | | | | | | obesity) ([facility]); | | | | | | History [...] Peterson DO - 04/03/2020 10:20 AM PDT [facility] Cardiology Cardiology Follow Up [...] rtake in exercise. She recently got a [employer]iquidCompassua and has been walking him more regularly. 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 Blood Glucose Monitoring Suppl ([employer] / NetcyclerIO FLEX SYSTEM) w/Device KIT by Does not ap ply route. budesonide-formoterol (SYMBICORT) 160-4.5 MCG/ACT inhaler Inhale 2 puffs into the lungs 2 (two) times daily. Calcium Carbonate Antacid 1000 MG tablet Take 1,000 mg by mouth 3 (three) times daily. Cholecalciferol (VITAMIN D3) 67864 units CAPS Take by mouth once a [...] ALT 76, alkaline phosphatase 134. Labs: 10/20/2019:( [facility]) CBC: WBC 7.1, RBC [...] | | | | | [place] [address] | | | | | | [phone] | | | | | | | | +--------+ + + + + | 08/28/ | Office | Cardiology | Dora De La Torre | | | 2019 | Visit | | [address] | | | | | | [address] | | | | | | [place] [address] | | | | | | [phone] | | | | | | | [...]
--- OUTSIDE RECORDS SUMMARY | ~2020-05-13 | XMS | Encounter Summary ---
Demographics + + + | Address | [address] | | | [place] [address] | + + + | Home Phone [...] [place] | | | | | [address] | | + + + + + [...] + + | 06/28/ | Telephone | [facility] | Ashley Chávez | Other (Patient | | 2018 | | CARDIOLOGY [place], Willow Machine Tender | called to cancel her | | | | [address] | | appointment) | | | | [place] | | | | | | [address] | | | | | | [phone] | | | +--------+ + + + [...] Miscellaneous Notes Telephone Encounter - Ashley Chávez, Willow Machine Tender - 06/28/2019 2:12 PM PDTPatigutierrez t said that she already got the result for her ECHO, so she decided to cancel her FU with Dr Peterson. I asked patient if she wanted to reschedule for another time, and she said she wants to FU as needed. I went ahead and canceled her appointment. BRODY:NABILAMA. [facility]ed in this encounter Plan of Treatment [...] [address] | | | | | | [place] [address] | | | | | | [phone] | | | | | | | | +--------+ + + + + | 08/28/ | Office | Cardiology | Dora De La Torre | | 2019 | Visit | | [address] | | | | | | [address] | | | | | | [place] [address] | | | | | | [phone] | | | | | | | | +--------+ + + + + documented as of this encounter Visit Diagnoses Not on filedocumented in this encounter"
--- OUTSIDE RECORDS SUMMARY | ~2020-05-13 | XMS | Encounter Summary ---
Demographics + + + | Address | [address] | | | [place] [address] | + + + | Home Phone [...] [place] | | | | | [address] | | + + + + + Care Team Providers + +------+ + | Care Taxation Consultant Name | Role | Phone | [...] [place] | | | | | | [address] | | | | | | [phone] | | | +--------+ + + + [...] | | | | | [place] [address] | | | | | | [phone] | | | | | | | | +--------+ + + + + | 08/28/ | Office | Cardiology | Dora De La Torre | | | 2020 | Visit | | [address] | | | | | | [address] | | | | | | [place] [address] | | | | | | [phone] | | | | | | | | +--------+ + + + + documented as of this encounter Visit Diagnoses Not on filedocumented in this encounter"
--- OUTSIDE RECORDS SUMMARY | ~2020-05-13 | XMS | Encounter Summary ---
Demographics + + + | Address | [address] | | | [place] [address] | + + + | Home Phone [...] [place] | | | | | [address] | | + + + + + Care Team Providers + +------+ + | Care Tube Repairer Name | Role | Phone | [...] + | 07/19/ | Telephone | [facility] | Frandy Teresa, | Appointment | | 2013 | | NEUROSURGERY [address] | DO [address] | | | | | [address] | [address] [place], [place] | | | | | [place], [place] | [id number] | | | | | [address] | | | | | | [phone] | | | +--------+ + + + [...] Spivey - 07/22/2014 8:09 AM Nakia from [facility] called back this morning to isamar mcarthure that she spoke with the patient again regarding this appointment and the patient would be ok with rescheduling to a time the following week. She just didn't want to make the trip down here right after she got back home to [place]. Janes can be reached at [phone] ectronically signed by Tiffani Humphrey at 07/22/2014 8:11 AM PDTTelephone Encounter - Lashawn Metzger - 07/19/2014 12:56 PM PDTSuarlen from [facility] called to confirm Cindy' s appointment for [...] | | | | | [place] [address] | | | | | | [phone] | | | | | | | | +--------+ + + + + | 08/28/ | Office | Cardiology | Dora De La Torre | | | 2019 | Visit | | [address] | | | | | | [address] | | | | | | [place] [address] | | | | | | [phone] | | | | | | | | +--------+ + + + + documented as of this encounter Visit Diagnoses Not on filedocumented in this encounter"
--- OUTSIDE RECORDS SUMMARY | ~2020-05-13 | XMS | Encounter Summary ---
Demographics + + + | Address | [address] | | | [place] [address] | + + + | Home Phone [...] [place], [place] | | | | | [address] | | + + + + + Care Team Providers + +------+ + | Care Operational Risk Manager Name | Role | Phone | + +------+ + PCP | Unavailable | + +------+ + Encounter Details +--------+ + + + + | Date | Type | Department | Care Team | Description | +--------+ + + + + | 06/23/ | Hospital | [facility] | | | | 2000 | Encounter | MED CTR GENERIC OP | | | | | | CONV DEPT [address] | | | | | | [place], | | | | | | [place] [address] | | | | | | [phone] | | | +--------+ + + + [...] | | | | | [place] [address] | | | | | | [phone] | | | | | | | | +--------+ + + + + | 08/28/ | Office | Cardiology | Dora De La Torre | | | 2019 | Visit | | [address] | | | | | | [address] | | | | | | [place] [address] | | | | | | [phone] | | | | | | | | +--------+ + + + + documented as of this encounter Visit Diagnoses Not on filedocumented in this encounter"
--- OUTSIDE RECORDS SUMMARY | ~2020-05-13 | XMS | Encounter Summary ---
Demographics + + + | Address | [address] | | | [place] [address] | + + + | Home Phone [...] [place] | | | | | [address] | | + + + + + Care Team Providers + +------+ + | Care Hob Mill Operator Name | Role | Phone | + +------+ + | Natalee Andersen NP | PCP | | + +------+ + Encounter Details +--------+ + + + + | Date | Type | Department | Care Team | Description | +--------+ + + + + | 06/25/ | Hospital | [facility] | Latricia Feliciano | | | 2014 | Encounter | MED CTR ACUTE | D, PT [address] | | | | | PHYSICAL THERAPY | [place] | | | | | [address] [place] | [address] | | | | | [place] [address] | | | | | | [phone] | | | +--------+ + + + [...] + + + +---------+ + + | [place]-3 Fatty | Take 1,000 mg by | [...] | | | | | [place] [address] | | | | | | [phone] | | | | | | | | +--------+ + + + + | 08/28/ | Office | Cardiology | Dora De La Torre | | | 2020 | Visit | | [address] | | | | | | [address] | | | | | | [place] [address] | | | | | | [phone] | | | | | | | | +--------+ + + + + documented as of this encounter Visit Diagnoses Not on filedocumented in this encounter"
--- OUTSIDE RECORDS SUMMARY | ~2020-05-13 | XMS | Encounter Summary ---
Demographics + + + | Address | [address] | | | [place] [address] | + + + | Home Phone [...] [place] | | | | | [address] | | + + + + + Care Team Providers + +------+ + | Care Library Technician Name | Role | Phone | [...] [place] | | | | | | [address] | | | | | | [phone] | | | +--------+ + + + [...] | | | | | [place] [address] | | | | | | [phone] | | | | | | | | +--------+ + + + + | 08/28/ | Office | Cardiology | Dora De La Torre | | | 2020 | Visit | | [address] | | | | | | [address] | | | | | | [place] [address] | | | | | | [phone] | | | | | | | | +--------+ + + + + documented as of this encounter Visit Diagnoses Not on filedocumented in this encounter"
--- OUTSIDE RECORDS SUMMARY | ~2020-05-13 | XMS | Encounter Summary ---
Demographics + + + | Address | [address] | | | [place] [address] | + + + | Home Phone [...] [place], [place] | | | | | [address] | | + + + + + Care Team Providers + +------+ + | Care Speaker Mounter Name | Role | Phone | + +------+ + PCP | Unavailable | + +------+ + Encounter Details +--------+ + + + + | Date | Type | Department | Care Team | Description | +--------+ + + + + | 07/17/ | Hospital | [facility] | | | | 1997 - | Encounter | MED CTR GENERIC PSY | | | | | | CONV DEPT [address] | | | | 07/25/ | | [address], | | | | 1997 | | [place] [address] | | | | | | [phone] | | | +--------+ + + + [...] [address] | | | | | | [place] [address] | | | | | | [phone] | | | | | | | | +--------+ + + + + | 08/28/ | Office | Cardiology | Dora De La Torre | | | 2019 | Visit | | [address] | | | | | | [address] | | | | | | [place] [address] | | | | | | [phone] | | | | | | | | +--------+ + + + + documented as of this encounter Visit Diagnoses Not on filedocumented in this encounter"
--- OUTSIDE RECORDS SUMMARY | ~2020-05-13 | XMS | Encounter Summary ---
Demographics + + + | Address | [address] | | | [place] [address] | + + + | Home Phone [...] [place] | | | | | [address] | | + + + + + Care Team Providers + +------+ + | Care Drive Thru Order Taker Name | Role | Phone | [...] [place] | | | | | | [address] | | | | | | [phone] | | | +--------+ + + + [...] | | | | | [place] [address] | | | | | | [phone] | | | | | | | | +--------+ + + + + | 08/28/ | Office | Cardiology | Dora De La Torre | | | 2020 | Visit | | [address] | | | | | | [address] | | | | | | [place] [address] | | | | | | [phone] | | | | | | | | +--------+ + + + + documented as of this encounter Visit Diagnoses Not on filedocumented in this encounter"
--- OUTSIDE RECORDS SUMMARY | ~2020-05-13 | XMS | Encounter Summary ---
Demographics + + + | Address | [address] | | | [place] [address] | + + + | Home Phone [...] [place], [place] | | | | | [address] | | + + + + + Care Team Providers + +------+ + | Care Medical Record Specialist Name | Role | Phone | + +------+ + PCP | Unavailable | + +------+ + Encounter Details +--------+ + + + + | Date | Type | Department | Care Team | Description | +--------+ + + + + | 10/29/ | Hospital | [facility] | | | | 1994 | Encounter | [facility] | | | | | | [address] | | | | | | [place] | | | | | | [address] | | | | | | [phone] | | | +--------+ + + + [...] | | | | | [place] [address] | | | | | | [phone] | | | | | | | | +--------+ + + + + | 08/28/ | Office | Cardiology | [facility] | | | 2020 | Visit | | [address] | | | | | | [address] | | | | | | [place] [address] | | | | | | [phone] | | | | | | | | +--------+ + + + + documented as of this encounter Visit Diagnoses Not on filedocumented in this encounter"
--- OUTSIDE RECORDS SUMMARY | ~2020-05-13 | XMS | Encounter Summary ---
Demographics + + + | Address | [address] | | | [place] [address] | + + + | Home Phone [...] [place], [place] | | | | | [address] | | + + + + + Care Team Providers + +------+ + | Care Dental Resident Name | Role | Phone | + +------+ + PCP | Unavailable | + +------+ + Encounter Details +--------+ + + + + | Date | Type | Department | Care Team | Description | +--------+ + + + + | 05/25/ | Hospital | [facility] | | | | 1991 | Encounter | MED CTR LABORATORY | | | | | | [address] | | | | | | [place] | | | | | | [address] | | | | | | [phone] | | | +--------+ + + + [...] | | | | | [place] [address] | | | | | | [phone] | | | | | | | | +--------+ + + + + | 08/28/ | Office | Cardiology | Dora De La Torre | | | 2020 | Visit | | [address] | | | | | | [address] | | | | | | [place] [address] | | | | | | [phone] | | | | | | | | +--------+ + + + + documented as of this encounter Visit Diagnoses Not on filedocumented in this encounter"
--- OUTSIDE RECORDS SUMMARY | ~2020-05-13 | XMS | Encounter Summary ---
Demographics + + + | Address | [address] | | | [place] [address] | + + + | Home Phone [...] [place] | | | | | [address] | | + + + + + Care Team Providers + +------+ + | Care Tool Dresser Name | Role | Phone | [...] Closed | | Radiology | Diagnoses | Roberdel, | | | | | | Thoracic or | Natalee L, | | | | | | lumbosacral | [address] | | | | | | neuritis or | [address] | | | | | | | [address] | | | | | | radiculitis, | [place], | | | | | | unspecified | [place] [address] | | | | | | | Phone: | | | | | | Degeneration | [phone] | | | | | | of lumbar | Fax: | | | | | | or | [phone] | | | | | | lumbosacral [...] + + | 03/11/ | Hospital | [facility] | Natalee Andersen | Thoracic or | | 2013 | Encounter | MED CTR MRI [address] | L, [address] | lumbosacral neuritis | | | | [place], | [address] | or radiculitis, | | | | [place] [address] | [place] [address] | unspecified; | | | | [phone] | [phone] | Degeneration of | | | | [...] + + + +---------+ + + | [place]-3 Fatty | Take 1,000 mg by | [...] encounter Miscellaneous Notes Miscellaneous - ONBASE SCAN [facility] - 03/20/2014 12:00 AM PDT documented in [...] [address] | | | | | | [place] [address] | | | | | | [phone] | | | | | | | | +--------+ + + + + | 08/28/ | Office | Cardiology | Dora De La Torre | | | 2019 | Visit | | [address] | | | | | | [address] | | | | | | [place] [address] | | | | | | [phone] | | | | | | | [...] + | MISCELLANEOUS LAB | | | [phone] | + +---------+ + + | MISCELANIOUS LAB | | | [phone] | + +---------+ + + documented in this encounter Visit Diagnoses + + | Diagnosis | + + | Thoracic or lumbosacral neuritis or radiculitis, unspecified | + + | Degeneration of lumbar or lumbosacral intervertebral disc | + + documented in this encounter"
--- OUTSIDE RECORDS SUMMARY | ~2020-05-13 | XMS | Encounter Summary ---
Demographics + + + | Address | [address] | | | [place] [address] | + + + | Home Phone [...] [place] | | | | | [address] | | + + + + + [...] [address] | [address] [place], [place] | fusion | | | | [place], [place] | [address] | | | | | [address] | | | | | | [phone] | | | +--------+ + + + [...] [address] | | | | | | [place] [address] | | | | | | [phone] | | | | | | | | +--------+ + + + + | 08/28/ | Office | Cardiology | Dora De La Torre | | | 2019 | Visit | | [address] | | | | | | [address] | | | | | | [place] [address] | | | | | | [phone] | | | | | | | | +--------+ + + + + documented as of this encounter Visit Diagnoses + + | Diagnosis | + + | Lumbago - Primary | + + | S/P lumbar fusion Arthrodesis status | + + documented in this encounter"
--- OUTSIDE RECORDS SUMMARY | ~2020-05-13 | XMS | Encounter Summary ---
Demographics + + + | Address | [address] | | | [place] [address] | + + + | Home Phone [...] [place] | | | | | [address] | | + + + + + Care Team Providers + +------+ + | Care Auto Design Checker Name | Role | Phone | [...] + + | 08/30/ | Telephone | [facility] | Ashley Chávez | Other (Patient wants | | 2018 | | CARDIOLOGY [place] | Pollo, Pharmacy Resident | to take monitor | | | | [address] | | off. ) | | | | [address] | | | | | | [place] | | | | | | [address] | | | | | | [phone] | | | +--------+ + + + [...] Miscellaneous Notes Telephone Encounter - Ashley Chávez, Pharmacy Resident - 08/30/2019 9:19 AM Bertagutierrez t called [...] thankful for the news. Patient stated understanding JDW:PHOTOGRAPHIC DOUBLE-AAMA. [facility] umented in this encounter Plan of [...] | | | | [place] [address] | | | | | | [phone] | | | | | | | | +--------+ + + + + | 08/28/ | Office | Cardiology | Dora De La Torre | | | 2020 | Visit | | [address] | | | | | | [address] | | | | | | [place] [address] | | | | | | [phone] | | | | | | | | +--------+ + + + + documented as of this encounter Visit Diagnoses Not on filedocumented in this encounter"
--- OUTSIDE RECORDS SUMMARY | ~2020-05-13 | XMS | Encounter Summary ---
Demographics + + + | Address | [address] | | | [place] [address] | + + + | Home Phone [...] [place], [place] | | | | | [address] | | + + + + + Care Team Providers + +------+ + | Care Household Coordinator Name | Role | Phone | + +------+ + PCP | Unavailable | + +------+ + Encounter Details +--------+ + + + + | Date | Type | Department | Care Team | Description | +--------+ + + + + | 02/22/ | Hospital | [facility] | | | | 1996 - | Encounter | MED CTR GENERIC PSY | | | | | | CONV DEPT [address] | | | | 02/26/ | | [address] [place], | | | | 1996 | | [place] [address] | | | | | | [phone] | | | +--------+ + + + [...] [address] | | | | | | [place] [address] | | | | | | [phone] | | | | | | | | +--------+ + + + + | 08/28/ | Office | Cardiology | Dora De La Torre | | | 2019 | Visit | | [address] | | | | | | [address] | | | | | | [place] [address] | | | | | | [phone] | | | | | | | | +--------+ + + + + documented as of this encounter Visit Diagnoses Not on filedocumented in this encounter"
--- OUTSIDE RECORDS SUMMARY | ~2020-05-13 | XMS | Encounter Summary ---
Demographics + + + | Address | [address] | | | [place] [address] | + + + | Home Phone [...] [place] | | | | | [address] | | + + + + + Care Team Providers + +------+ + | Care Building Consultant Name | Role | Phone | [...] + + | 05/08/ | Telephone | [facility] | Dora De La Torre | Testing | | 2020 | | CARDIOLOGY [place] | [address] | | | | | [address] | [address] | | | | | [address] | [place] [address] | | | | | [place] | [phone] | | | | | [address] | | | | | | [phone] | | | +--------+ + + + [...] [address] | | | | | | [place] [address] | | | | | | [phone] | | | | | | | | +--------+ + + + + | 08/28/ | Office | Cardiology | Dora De La Torre | | 2019 | Visit | | [address] | | | | | | [address] | | | | | | [place] [address] | | | | | | [phone] | | | | | | | | +--------+ + + + + documented as of this encounter Visit Diagnoses Not on filedocumented in this encounter"
--- OUTSIDE RECORDS SUMMARY | ~2020-05-13 | XMS | Encounter Summary ---
Demographics + + + | Address | [address] | | | [place] [address] | + + + | Home Phone [...] [place], [place] | | | | | [address] | | + + + + + Care Team Providers + +------+ + | Care Flux Core Welder Name | Role | Phone | + +------+ + PCP | Unavailable | + +------+ + Encounter Details +--------+ + + + + | Date | Type | Department | Care Team | Description | +--------+ + + + + | 04/01/ | Hospital | [facility] | | | | 1998 | Encounter | MED CTR XRAY [address] | | | | | | [address] | | | | | | [place] [address] | | | | | | [phone] | | | +--------+ + + + [...] | | | | | [place] [address] | | | | | | [phone] | | | | | | | | +--------+ + + + + | 08/28/ | Office | Cardiology | Dora De La Torre | | | 2019 | Visit | | [address] | | | | | | [address] | | | | | | [place] [address] | | | | | | [phone] | | | | | | | | +--------+ + + + + documented as of this encounter Visit Diagnoses Not on filedocumented in this encounter"
--- OUTSIDE RECORDS SUMMARY | ~2020-05-13 | XMS | Encounter Summary ---
Demographics + + + | Address | [address] | | | [place] [address] | + + + | Home Phone [...] [place] | | | | | [address] | | + + + + + Care Team Providers + +------+ + | Care Information Security Associate Name | Role | Phone | [...] | Telephone | [facility] [place] | [facility], | [facility] | | 2012 | | GASTROENTEROLOGY | [place]O [address] | | | | | [address] | [address] | | | | | [address] [place], [place] | [place], [place] | | | | | [address] | [address] | | | | | [phone] | | | +--------+ + + + [...] [address] | | | | | | [place] [address] | | | | | | [phone] | | | | | | | | +--------+ + + + + | 08/28/ | Office | Cardiology | Dora De La Torre | | | 2019 | Visit | | [address] | | | | | | [address] | | | | | | [place] [address] | | | | | | [phone] | | | | | | | | +--------+ + + + + documented as of this encounter Visit Diagnoses Not on filedocumented in this encounter"
--- OUTSIDE RECORDS SUMMARY | ~2020-05-13 | XMS | Encounter Summary ---
Demographics + + + | Address | [address] | | | [place] [address] | + + + | Home Phone [...] [place] | | | | | [address] | | + + + + + Care Team Providers + +------+ + | Care Pipeline Dispatch Operator Name | Role | Phone | [...] + + | 08/14/ | Documentati | [facility] | Katharine Moncada, | Other (urgent | | 2019 | on | CARDIOLOGY [place] | Technologist | report) | | | | [address] | | | | | | [place] | | | | | | [address] | | | | | | [phone] | | | +--------+ + + + [...] | | | | | [place] [address] | | | | | | [phone] | | | | | | | | +--------+ + + + + | 08/28/ | Office | Cardiology | Dora De La Torre | | | 2020 | Visit | | [address] | | | | | | [address] | | | | | | [place] [address] | | | | | | [phone] | | | | | | | | +--------+ + + + + documented as of this encounter Visit Diagnoses Not on filedocumented in this encounter"
--- OUTSIDE RECORDS SUMMARY | ~2020-05-13 | XMS | Encounter Summary ---
Demographics + + + | Address | [address] | | | [place] [address] | + + + | Home Phone [...] [place] | | | | | [address] | | + + + + + Care Team Providers + +------+ + | Care Regulatory Internship Name | Role | Phone | [...] | [address] [place], [place] | (Primary Dx) | | | | [place], [place] | [address] | | | | | [address] | | | | | | [phone] | | | +--------+ + + + [...] | | | | | | [place] [address] | | | | | | [phone] | | | | | | | | +--------+ + + + + | 08/28/ | Office | Cardiology | Dora De La Torre | | | 2019 | Visit | | [address] | | | | | | [address] | | | | | | [place] [address] | | | | | | [phone] | | | | | | | [...] + | MISCELLANEOUS LAB | | | [phone] | + +---------+ + + | MISCELANIOUS LAB | | | [phone] | + +---------+ + + documented in this encounter Visit Diagnoses + + | Diagnosis | + + | Status post lumbar spinal fusion - Primary Arthrodesis status | + + documented in this encounter"
--- OUTSIDE RECORDS SUMMARY | ~2020-05-13 | XMS | Encounter Summary ---
Demographics + + + | Address | [address] | | | [place] [address] | + + + | Home Phone [...] [place] | | | | | [address] | | + + + + + Care Team Providers + +------+ + | Care Wet Roller Name | Role | Phone | [...] + + | 08/13/ | Documentati | [facility] | Katharine Moncada, | Other (urgent | | 2019 | on | CARDIOLOGY [place] | Technologist | report) | | | | [address] | | | | | | [place] | | | | | | [address] | | | | | | [phone] | | | +--------+ + + + [...] | | | | | [place] [address] | | | | | | [phone] | | | | | | | | +--------+ + + + + | 08/28/ | Office | Cardiology | Dora De La Torre | | | 2020 | Visit | | [address] | | | | | | [address] | | | | | | [place] [address] | | | | | | [phone] | | | | | | | | +--------+ + + + + documented as of this encounter Visit Diagnoses Not on filedocumented in this encounter"
--- OUTSIDE RECORDS SUMMARY | ~2020-05-13 | XMS | Encounter Summary ---
Demographics + + + | Address | [address] | | | [place] [address] | + + + | Home Phone [...] + + | Author | [facility] | + + + | Organization | [facility] | + + + | Address | Unknown | + + + | Phone | Unavailable | + + + Support + + + + + | Name | Relationship | Address | Phone | + + + + + | Kelsy Bautista | [address] | [address] | | | | | [place] | | | | | [address] | | + + + + + Care Team Providers + +------+ + | Care Bed Machine Operator Name | Role | Phone [...] [address] | | | | | | [place], [place] | | | | | | [address] | | | +--------+ + + + [...]
--- OUTSIDE RECORDS SUMMARY | ~2020-05-13 | XMS | Encounter Summary ---
Demographics + + + | Address | [address] | | | [place] [address] | + + + | Home Phone [...] [place], [place] | | | | | [address] | | + + + + + Care Team Providers + +------+ + | Care Wire Coiner Name | Role | Phone | + [...] [address] | | | | | | [place], [place] | | | | | | [address] | | | | | | [phone] | | | +--------+ + + + [...] | | | | | [place] [address] | | | | | | [phone] | | | | | | | | +--------+ + + + + | 08/28/ | Office | Cardiology | Dora De La Torre | | | 2020 | Visit | | [address] | | | | | | [address] | | | | | | [place] [address] | | | | | | [phone] | | | | | | | | +--------+ + + + + documented as of this encounter Visit Diagnoses Not on filedocumented in this encounter
--- OUTSIDE RECORDS SUMMARY | ~2020-05-13 | XMS | Encounter Summary ---
Demographics + + + | Address | [address] | | | [place] [address] | + + + | Home Phone [...] [place] | | | | | [address] | | + + + + + Care Team Providers + +------+ + | Care Ice Cream Dipper Name | Role | Phone | [...] Clinic | | | | | | [facility], [address] | | | | | | [place], [place] | | | | | | [address] | | | | | | [phone] | | | +--------+ + + + [...] as of this encounter Progress Notes Interface, Tandem Mill Roller In - 12/11/2006 5:03 AM [facility] DATE: 07/03/97 INFECTIOUS DISEASE CLINIC: [...]
--- OUTSIDE RECORDS SUMMARY | ~2020-05-13 | XMS | Encounter Summary ---
Demographics + + + | Address | [address] | | | [place] [address] | + + + | Home Phone [...] [place] | | | | | [address] | | + + + + + Care Team Providers + +------+ + | Care Military Exchange Wireless Manager Name | Role | Phone | [...] | | spondylolist | | [address] | | | | | hesis | | [place], | | | | | Spinal | | [place] [address] | | | | | stenosis, | | Phone: | | | | | lumbar | | [phone] | | | | | region, | | Fax: | | | | | without | | [phone] | | | | | neurogenic | [...] + + | 07/02/ | Hospital | [facility] | Frandy Teresa, | Degenerative disc | | 2013 - | Encounter | MED CTR SURGICAL | DO [address] | disease, lumbar | | | | [address] | [place] [address] [address] | (Primary Dx); | | 07/05/ | | [place] [address] | [phone] | Diabetes mellitus | | 2013 | | [phone] | | ([facility]); Disturbance | | | | | [...] Take 15 mg by mouth nightl y. Aguadilla-3 Fatty Acids (FISH OIL CONCENTRATE) 1000 MG [...] + + + +---------+ + + | Aguadilla-3 Fatty | Take 1,000 mg by | [...] Lynn PA-C - 07/04/2014 7:43 AM PDT [facility] PROGRESS NOTE Pt. Name/Age/: Cindy Arndt 58 y.o. 1955 Med. Record Number: [id number] Date of admission: 07/02/2014 Subjective: The patient [...] home medications. D/C plan: Home tomorrow with [facility]. D/c mari drain and riley cath today. D/c hand knitter. Patient Active Problem List Diagnosis LUMBAR DISC [...] signed by: Chris Nicole, 07/04/2014 7:45 [facility] Chris Lynn PA-C - 07/03/2014 7:13 AM PDT . [facility] PROGRESS NOTE Pt. Name/Age/: Cindy Arndt 58 y.o. 1955 Med. Record Number: [id number] Date of admission: 07/02/2014 Subjective: The patient [...] signed by: Chris Nicole, 07/03/2014 7:13 [facility] on Smith, KRIS - 07/03/2014 6:50 [...] by: Frandy Teresa DO, 07/02/2014 11:15 [facility] signed by Frandy Teresa DO at 06/2014 11:15 AM PDTFrandy Teresa DO - 07/02/2014 11:15 AM [id number] [facility], [address] [place], [place] [id number] FAX: NEUROSURGERY HISTORY AND PHYSICAL EXAMINATION CHIEF [...] Take 15 mg by mouth earnestine eldridge. Aguadilla-3 Fatty Acids (FISH OIL CONCENTRATE) 1000 MG [...] Intrinsics 5 5 Ulnar Intrinsics 5 5 Zigzag Stitcher Strength 5 5 Hip Flexion 5 4* [...] in this en counter Procedure Notes [facility] - 07/12/2014 12:00 AM PDT 14 1:45 PM [facility] - 07/04/2014 12:00 AM PDT [facility] - 07/02/2014 12:00 AM PDT documented in this encounter Miscellaneous Notes Plan of Care - ONBASE SCAN [facility] - 07/12/2014 12:00 AM PDT iscellaneous [facility] - 07/12/2014 12:00 AM PDTElec tronically signed by Mariah Schulte at 07/12/2014 1:45 PM PDTMiscellaneous - [facility] SCAN [facility] - 07/12/2014 12:00 AM PDT i scellaneous - [facility]UCE SCAN [facility] - 07/12/2014 12:00 AM PDT lan [...] and I will be going to a [facility] as I have 16 steps to my [...] TBD) Equipment Recommendations: tub bench;hand held shower head;credit analysis manager;comfort height toilet ( pt. has all [...] PA-C Consultants: none PCP: Natalee Andersen [facility] transferring to: [facility] Provider after transfer: PCP and Dr. Frandy Teresa CODE STATUS: [x] Attempt CPR [] Do not resuscitate If patient is pulseless and not breathing, RN/AUTO CLAIM REPRESENTATIVE may pronounce . Advanced Directives included: [...] for this patient. Diet: [] As tolerated IRONER OR PRESSER may upgrade or downgrade diet as condition Indicates. [x] RN may downgrade diet as indicated. Type: [] Continue current diet of: Diet and Supplements Diet DIET CONSISTENT CARBOHYDRATE Number of Occurrences: -1 Days [] Other: Consistency/Precautions: [] Whole [] Thin Liquids [] Cut-up [] [place] Thick [] Advanced Chopped [] Honey Thickened [] Chopped [] Advanced Ground [] 1:1 feedings [] Ground/Pureed [] Other: Tube Feedings: [] PEG [] GT [] JT [] NGT [] Formula type: (Computer Security Coordinator may change/substitute if indicated). [] Continuous [...] & Management for: ____same as above [] IRONER OR PRESSER Evaluation &Management for: [] Other: Wound/Skin Care: [...] Take 15 mg by mouth ni linda. Aguadilla-3 Fatty Acids (FISH OIL CONCENTRATE) 1000 MG [...] (pediatric) IChris PA-C, certify that post hospital fci care is medically nec essary on a continuing basis for any of the conditions for which he/she received care during this hospitalization. Check one: [x] Skilled [] Intermediate Additional Orders/Instructions: Physician's signature:__Chris Nicole PA-C 07/05/2014 13:18 [facility] JMHIKarsten [facility] USE ONLY: [] [...] [facility] hospital stay due to multiple pain c/o. Attempted to see pt. 1145, however had just rec eived pain medication and requested PT return, SPL 9/10. At 1205 pt contacted PT for assist OOB due to left LE spasms and need for position change. Sitting at EOB on arrival, STATISTICAL CLERK ADVERTISING pres ent. Pt. donned LSO brace, stood [...] of endurance. When patient is walking in [facility] with a regular FWW she has to stop frequently and states she feels very weak, like sh e may fall. Patient lives alone. Outpatient prescriptions are filled at [facility] in [facility]. Electronically signed by: Franca Narvaez RN 07/05/2014 10:43 lan of Adilene Layne Rivers - 07/05/2014 10:39 AM PDTFaxed referral to Gabriela Stout and Lidia Tran. [place] : [id number] and [place]: [id number] Electronically signed by: Layne Collado 07/05/2014 10:40 [...] TBD) Equipment Recommendations: tub bench;hand held shower head;credit analysis manager;comfort height toilet ( pt. has all necessary equipment) Planned Interventions: ADL retraining;transfer training Patient Status/Goals Reflects last filed data of patient status; may be from multiple contributors. Grooming: Status: did not occur today Assist: Utilizes: STG: Status: New Goal:modified independent LTG: Status: Goal: UE Dressing: Status: SBA Assist: Utilizes: STG: Status: Goal: LTG: Status: Goal: LE Dressing: Status: SBA Utilizes: credit analysis manager STG: Status: New Goal: modified independent [...] bed mobil ity. Pt has been using RIPSAW MATCHER and pain pills during the night. Zofran [...] by herself in a small apartment in [place]. Patient states she has her apartment set [...] [facility] [place]. She states the Said she might benefit [facility] upon discharge. She would like me to contact [facility] to giv e them a heads up. I called and spoke to Summer at [facility] , told her patients PCP i s [...] Pt. resting in bed on arrival, used RIPSAW MATCHER x 2 during session. SPL 5/10. Pt. hoping to urinate track worker to straight cath. Sidelying to sit [...] TBD) Equipment Recommendations: tub bench;hand held shower head;credit analysis manager;comfort height toilet ( pt. has all [...] & Review . Outcome: Progressing Pt using RIPSAW MATCHER and PO pain pills, c/o numbness on [...] and on a continuous oximeter for her RIPSAW MATCHER. She was unable to do her IS because o f the medications. She has the IS at bedside with a goal of 2400. She did not require additi onal respiratory care throughout the evening. p Note - Frandy Teresa, - 07/02/2014 2:25 PM PDTDATE: 07/02/2014 SURGEON: Frandy Teresa MD. SENIOR MANAGER MERGERS & ACQUISITIONS: ZANE Oh PREOPERATIVE DIAGNOSES 1. Spondylolisthesis, L5-S1. [...] x 26 mm Capstone PEEK cage from [employer] was chosen. It was filled with Infus [...] Note Cindy Arndt 58 y.o. female 1955 [id number] Proc. Date 07/02/2014 Preop Dx Spondylolisthesis L5-S1 Postop Dx same Procedure Procedure(s):MIS L5-S1 TRANSFORAMINAL LUMBAR INTERBODY FUSION Anesthesia General Surgeon Frandy Teresa DO Card Cutter ZANE Oh EBL 100 mL Findings Findings consistent with scheduled procedure. No other abnormalities found. Complications none Specimens * No specimens in log * Drains Electronically signed by: Frandy Teresa DO 07/02/2014 14:22 [facility] documented in this en counter Plan [...] | | | | | | [place] [address] | | | | | | [phone] | | | | | | | | +--------+ + + + + | 08/28/ | Office | Cardiology | Dora De La Torre | | | 2019 | Visit | | [address] | | | | | | [address] | | | | | | [place] [address] | | | | | | [phone] | | | | | | | [...] | [facility] | [address] | [place] | [phone] | | [facility] | | [address] | | | - LABORATORY | | | | + + + + + | [facility] | [address] | [place] | | | [facility] | | [id number] | | | - LABORATORY | [...] | [facility] | [address] | [place], [place] | [phone] | | [facility] | | [address] | | | - LABORATORY | | | | + + + + + | [facility] | [address] | [place], [place] | | | [facility] | | [id number] | | | - LABORATORY | [...] [address] | [place] | [phone] | | [facility] | | [address] | | | - LABORATORY | | | | + + + + + | [address] | [address] | [place], [place] | | | [facility] | | [id number] | | | - LABORATORY | [...] | [facility] | [address] | [place] | [phone] | | [facility] | | [address] | | | - LABORATORY | | | | + + + + + | [facility] | [address] | [place], [place] | | | [facility] | | [address] | | | - LABORATORY | [...] [address] | [place] | [phone] | | [facility] | | [address] | | | - LABORATORY | | | | + + + + + | [address] | [address] | [place] | | | [facility] | | [address] | | | - LABORATORY | [...] | [facility] | [address] | [place] | [phone] | | [facility] | | [address] | | | - LABORATORY | | | | + + + + + | [facility] | [address] | [place], [place] | | | [facility] | | [address] | | | - LABORATORY | [...] [address] | [place] | [phone] | | [facility] | | [address] | | | - LABORATORY | | | | + + + + + | [address] | [address] | [place] | | | [facility] | | [address], [facility] | | | - LABORATORY [...] | [facility] | [address] | [place], [place] | [phone] | | [facility] | | [address] | | | - LABORATORY | | | | + + + + + | [facility] | [address] | [place], [place] | | | [facility] | | [id number] [place] [address] | | | - LABORATORY | | [...] | [address] | [address] | [place], [place] | [phone] | | [facility] | | [address] | | | - LABORATORY | | | | + + + + + | [address] | [address] | [place], [place] | | | [facility] | | [id number] [place] [address] | | | - LABORATORY | | [...] | of hardware for posterior fusion from M2ojihqlr S1 with interbody hardware at L5-S1. The [...] + | MISCELLANEOUS LAB | | | [phone] | + +---------+ + + | MISCELANIOUS LAB | | | [phone] | + +---------+ + + POC Glucose [...] | [facility] | [address] | [place] | [phone] | | [facility] | | [address] | | | - LABORATORY | | | | + + + + + | [facility] | [address] | [place] | | | [facility] | | [address], [facility] | | | - LABORATORY [...] | [facility] | [address] | [place], [place] | [phone] | | [facility] | | [address] | | | - LABORATORY | | | | + + + + + | [facility] | [address] | [place], [place] | | | [facility] | | [id number] | | | - LABORATORY | [...] [address] | [place] | [phone] | | [facility] | | [address] | | | - LABORATORY | | | | + + + + + | [address] | [address] | [place] | | | [facility] | | [address] | | | - LABORATORY | [...] | [address] [facility] | [address] | [place], [place] | [phone] | | [facility] | | [address] | | | - LABORATORY | | | | + + + + + | [facility] | [address] | [place], [place] | | | [facility] | | [address] | | | - LABORATORY | [...] [address] | [place] | [phone] | | [facility] | | [address] | | | - LABORATORY | | | | + + + + + | [facility] | [address] | [place] | | | [facility] | | [id number] | | | - LABORATORY | [...] | [facility] | | [address] | | | - BLOOD BANK | [...] + +---------+ +---+---+---+ | morphine 5 mg/mL RIPSAW MATCHER syringe | New Bag | 07/02/20 | [...] | | | | Dose(mg): 0, Starting RIPSAW MATCHER | | | | | | | Dose(mg): 1, Incremental Increase | | | | | | | RIPSAW MATCHER Dose(mg): 0.5, Maximum RIPSAW MATCHER | | | | | | | [...]
--- OUTSIDE RECORDS SUMMARY | ~2020-05-13 | XMS | Encounter Summary ---
Demographics + + + | Address | [address] | | | [place] [address] | + + + | Home Phone [...] [place] | | | | | [address] | | + + + + + Care Team Providers + +------+ + | Care Motor Racer Name | Role | Phone | [...] updated | | | | | [address], | address | | | | | [address] [place] | | | | | | [place] [address] | | | | | | [phone] | | | +--------+ + + + [...] | | | | | [place] [address] | | | | | | [phone] | | | | | | | | +--------+ + + + + | 08/28/ | Office | Cardiology | Dora De La Torre | | | 2019 | Visit | | [address] | | | | | | [address] | | | | | | [place] [address] | | | | | | [phone] | | | | | | | | +--------+ + + + + documented as of this encounter Visit Diagnoses Not on filedocumented in this encounter"
--- OUTSIDE RECORDS SUMMARY | ~2020-05-13 | XMS | Encounter Summary ---
Demographics + + + | Address | [address] | | | [place] [address] | + + + | Home Phone [...] [place] | | | | | [address] | | + + + + + Care Team Providers + +------+ + | Care Welding Machine Feeder Name | Role | Phone [...] + + | 08/24/ | Documentati | [facility] | Katharine Moncada, | Other (urgent | | 2019 | on | CARDIOLOGY [place] | Technologist | report) | | | | [address] | | | | | | [place] | | | | | | [address] | | | | | | [phone] | | | +--------+ + + + [...] | | | | | [place] [address] | | | | | | [phone] | | | | | | | | +--------+ + + + + | 08/28/ | Office | Cardiology | Dora De La Torre | | | 2020 | Visit | | [address] | | | | | | [address] | | | | | | [place] [address] | | | | | | [phone] | | | | | | | | +--------+ + + + + documented as of this encounter Visit Diagnoses Not on filedocumented in this encounter"
--- OUTSIDE RECORDS SUMMARY | ~2020-05-13 | XMS | Encounter Summary ---
Demographics + + + | Address | [address] | | | [place] [address] | + + + | Home Phone [...] [place] | | | | | [address] | | + + + + + Care Team Providers + +------+ + | Care Payroll Processor Name | Role | Phone | [...] + + | 07/19/ | Office | [facility] | Desiree Peterson DO | Syncope, unspecified | | 2019 | Visit | CARDIOLOGY [place] | [address] | syncope type | | | | [address] | [place], [place] | (Primary Dx); | | | | [address] [place] | [address] | Essential | | | | [place] | | hypertension; | | | | [address] | | Irregular heartbeat | | | | [phone] | | | +--------+---------+ + + + [...] Peterson DO - 07/19/2019 10:[address] [facility] Cardiology Cardiology Follow Up Note [...] rtake in exercise. She recently got a [employer] and has been walking him more regularly. [...] by mouth daily. Blood Glucose Monitoring Suppl ([employer] VERIO FLEX SYSTEM) w/Device KIT by Does not ap ply route. budesonide-formoterol (SYMBICORT) 160-4.5 MCG/ACT inhaler Inhale 2 puffs into the lungs 2 (two) times daily. Calcium Carbonate Antacid 1000 MG tablet Take 1,000 mg by mouth 3 (three) times daily. Cholecalciferol (VITAMIN D3) 40591 units CAPS Take by mouth once a [...] | | | | | [place] [address] | | | | | | [phone] | | | | | | | | +--------+ + + + + | 08/28/ | Office | Cardiology | Dora De La Torre | | | 2020 | Visit | | [address] | | | | | | [address] | | | | | | [place] [address] | | | | | | [phone] | | | | | | | [...]
--- OUTSIDE RECORDS SUMMARY | ~2020-05-13 | XMS | Encounter Summary ---
Demographics + + + | Address | [address] | | | [place] [address] | + + + | Home Phone [...] [place], [place] | | | | | [address] | | + + + + + Care Team Providers + +------+ + | Care Motor Runner Name | Role | Phone | + +------+ + PCP | Unavailable | + +------+ + Encounter Details +--------+ + + + + | Date | Type | Department | Care Team | Description | +--------+ + + + + | 03/11/ | [facility] | [facility] | Deon Gonzales | | | 2004 | Encounter | MED CTR SLEEP | MD [address] | | | | | [place] [address] | [address] [facility] | | | | | [place], [place] | [place] [address] | | | | | [address] | [phone] | | | | | [phone] | | | +--------+ + + + [...] | | | | | [place] [address] | | | | | | [phone] | | | | | | | | +--------+ + + + + | 08/28/ | Office | Cardiology | Dora De La Torre | | | 2019 | Visit | | [address] | | | | | | [address] | | | | | | [place] [address] | | | | | | [phone] | | | | | | | | +--------+ + + + + documented as of this encounter Visit Diagnoses Not on filedocumented in this encounter"
--- OUTSIDE RECORDS SUMMARY | ~2020-05-13 | XMS | Encounter Summary ---
Demographics + + + | Address | [address] | | | [place] [address] | + + + | Home Phone [...] [place], [place] | | | | | [address] | | + + + + + Care Team Providers + +------+ + | Care Campus Dean Name | Role | Phone | + +------+ + PCP | Unavailable | + +------+ + Encounter Details +--------+ + + + + | Date | Type | Department | Care Team | Description | +--------+ + + + + | 02/02/ | Hospital | [facility] | Serafin Bautista | | | 2011 | Encounter | MED CTR XRAY [address] | | | | | [place] | [place] | | | | | [place] [address] | [address] | | | | | [phone] | | | +--------+ + + + [...] [address] | | | | | | [place] [address] | | | | | | [phone] | | | | | | | | +--------+ + + + + | 08/28/ | Office | Cardiology | Dora De La Torre | | | 2019 | Visit | | [address] | | | | | | [address] | | | | | | [place] [address] | | | | | | [phone] | | | | | | | [...] [place] | | [address] [facility] | [facility] | | PROCEDURE: EPIDURAL STEROID | [...] Transcribed Date/Time: | | | 02/03/2012 18:45 Goodwill Ambassador: <Electronically Signed | | | by Serafin Bautista MD> 02/14/12 0916 | | + + + + + | Procedure Note | + + | Juan, Rad Conversion - 11/30/2013 5:06 PM [facility] | | Diagnostic Imaging Department | | [address] [facility] | | | | | | [...] | Transcribed Date/Time: 02/03/2012 18:45 | | Goodwill Ambassador: | | <Electronically Signed by Serafin Bautista [...]
--- OUTSIDE RECORDS SUMMARY | ~2020-05-13 | XMS | Clinical Summary ---
Demographics + + + | Address | [address] | | | [place] [address] | + + + | Home Phone [...] [place] | | | | | [address] | | + + + + + Care Team Providers + +------+ + | Care Machine Scallop Cutter Name | Role | Phone | + +------+ + PCP | Unavailable | + +------+ + Source Comments EDWARD is fully live on both [facility] and [facility] InPatient.[facility] Allergies Not on File [...] | [employer] | xxxxxxxxxx | 02/22/20 | [phone] | [address] | [employer] | | | RE A & | | 15-Pre | 1 | [address] | [address] | | | B | | sent | | [place] | | | | | | | | [address] | | + +--------+ +--------+ + +--------+ + +--------+ +--------+ + + | Guarantor Name | Accoun | Relation to | Date | Phone | Billing Address | | | t Type | Patient | of | | | | | | | | | | + +--------+ +--------+ + + | CINDY ARNDT | Person | Self [birth year] | [address] | | al/Fam | | 1955 | [phone] | [address] [place] | | | [place]onte | | | 5 (Home) | [address] | + +--------+ +--------+ + +"
--- OUTSIDE RECORDS SUMMARY | ~2020-05-13 | XMS | Encounter Summary ---
Demographics + + + | Address | [address] | | | [place] [address] | + + + | Home Phone [...] [place] | | | | | [address] | | + + + + + Care Team Providers + +------+ + | Care Corporate Sales Trainer Name | Role | Phone | [...] [address] | [address] [place], [place] | Anxiety; Anemia; | | | | [place] | [address] | Irregular heartbeat; | | | | [address] | | Depression; | | | | [phone] | | Migraine; | | | | [...] [address] | | | | | | [place] [address] | | | | | | [phone] | | | | | | | | +--------+ + + + + | 08/28/ | Office | Cardiology | Dora De La Torre | | | 2019 | Visit | | [address] | | | | | | [address] | | | | | | [place] [address] | | | | | | [phone] | | | | | | | [...]
--- OUTSIDE RECORDS SUMMARY | ~2020-05-13 | XMS | Encounter Summary ---
Demographics + + + | Address | [address] | | | [place] [address] | + + + | Home Phone [...] [place] | | | | | [address] | | + + + + + Care Team Providers + +------+ + | Care Freelance Web Designer Name | Role | Phone | [...] | SLEEP DISORDER [address] | [address] | | | | | [address] [place] | [place] | | | | | [place] [address] | [address] | | | | | [phone] | | | +--------+ + + + [...] PDTPat was last seen in our [facility] on 04/30/2015. He did not cancel or [...] PA-C eleph one Encounter - Gail Cadet, Bead Wire Insulator - 07/15/2016 8:37 AM PDTCalled to resched ule patient's no show appointment unable to contact all numbers are disconnected. Electronic ally signed by Gail Cadet Bead Wire Insulator at 07/15/2016 8:37 AM PDTdocumented in this [...] [address] | | | | | | [place] [address] | | | | | | [phone] | | | | | | | | +--------+ + + + + | 08/28/ | Office | Cardiology | Dora De La Torre | | | 2019 | Visit | | [address] | | | | | | [address] | | | | | | [place] [address] | | | | | | [phone] | | | | | | | | +--------+ + + + + documented as of this encounter Visit Diagnoses Not on filedocumented in this encounter"
--- OUTSIDE RECORDS SUMMARY | ~2020-05-13 | XMS | Encounter Summary ---
Demographics + + + | Address | [address] | | | [place] [address] | + + + | Home Phone [...] [place] | | | | | [address] | | + + + + + Care Team Providers + +------+ + | Care Glue Size Machine Operator Name | Role | Phone | + +------+ + | Natalee Andersen NP | PCP | | + +------+ + Encounter Details +--------+ + + + + | Date | Type | Department | Care Team | Description | +--------+ + + + + | 05/02/ | Hospital | [facility] | Frandy Teresa, | Back pain | | 2014 | Encounter | MED CTR XRAY [address] | DO [address] | | | | | [place] | [address] [place] | | | | | [place] [address] | [address] | | | | | [phone] | | | +--------+ + + + [...] + + + +---------+ + + | Rincon-3 Fatty | Take 1,000 mg by | [...] CANTU | | | | | | [place] [address] | | | | | | [phone] | | | | | | | | +--------+ + + + + | 08/28/ | Office | Cardiology | Dora De La Torre | | | 2019 | Visit | | [address] | | | | | | [address] | | | | | | [place] [address] | | | | | | [phone] | | | | | | | [...] + | MISCELLANEOUS LAB | | | [phone] | + +---------+ + + | MISCELANIOUS LAB | | | [phone] | + +---------+ + + documented in this encounter Visit Diagnoses + + | Diagnosis | + + | Back pain Backache, unspecified | + + documented in this encounter"
--- OUTSIDE RECORDS SUMMARY | ~2020-05-13 | XMS | Encounter Summary ---
Demographics + + + | Address | [address] | | | [place] [address] | + + + | Home Phone [...] [place] | | | | | [address] | | + + + + + Care Team Providers + +------+ + | Care Occupational Safety And Health Manager Name | Role | Phone | [...] | | | | | Procedures | STATISTICAL GENETICIST [address] | [address] | | | | | ID OFFICE | | [address] | | | | | CONSULTATION | [address] | [place] | | | | | NEW/ESTAB | [facility], | [address] Phone: | | | | | PATIENT 60 | [place] [address] | [phone] | | | | | MIN | Phone: | Fax: | | | | | | [phone] | [phone] | | | | | | Fax: | | | | | | | [phone] | | +--------+--------+ + + + + Encounter Details +--------+---------+ + + + | Date | Type | Department | Care Team | Description | +--------+---------+ + + + | 05/02/ | Office | [facility] | Frandy Teresa, | Spondylolisthesis of | | 2013 | Visit | NEUROSURGERY [address] | DO [address] | lumbar region | | | | [address] | [address] [place], [place] | (Primary Dx); Lumbar | | | | [place], [place] | [id number] | stenosis; Lumbar | | | | [address] | | radicular pain; | | | | [phone] | | Lumbago | +--------+---------+ + + [...] [facility] [place], [address] [place], [place] [id number] FAX: NEUROSURGERY HISTORY AND PHYSICAL EXAMINATION CHIEF [...] Take 15 mg by mouth nightl y. [place]-3 Fatty Acids (FISH OIL CONCENTRATE) 1000 MG [...] no apparent deficits with short or 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 memory. CRANIAL NERVES: II: Acuity is intact. [...] Intrinsics 5 5 Ulnar Intrinsics 5 5 Newspaper Clipper Strength 5 5 Hip Flexion 5 4* [...] Miscellaneous Notes Miscellaneous - ONBASE SCAN [facility] - 05/02/2014 12:00 AM PDTElectronically signed by [facility] at 05/08/2014 8:57 AM PDTMiscellaneous - ONBASE SCAN [facility] - 05/02/2014 12:00 AM PDTEle ctronically signed by [facility] at 05/08/2014 8:56 AM PDTdocumented in this [...] CANTU | | | | | | [place] [address] | | | | | | [phone] | | | | | | | | +--------+ + + + + | 08/28/ | Office | Cardiology | Dora De La Torre | | | 2019 | Visit | | [address] | | | | | | [address] | | | | | | [place] [address] | | | | | | [phone] | | | | | | | [...]
--- OUTSIDE RECORDS SUMMARY | ~2020-05-13 | XMS | Encounter Summary ---
Demographics + + + | Address | [address] | | | [place] [address] | + + + | Home Phone [...] [place], [place] | | | | | [address] | | + + + + + Care Team Providers + +------+ + | Care Cook House Supervisor Name | Role | Phone | + +------+ + PCP | Unavailable | + +------+ + Encounter Details +--------+ + + + + | Date | Type | Department | Care Team | Description | +--------+ + + + + | 06/19/ | Hospital | [facility] | | | | 1991 - | Encounter | MED CTR GENERIC PSY | | | | | | CONV DEPT [address] | | | | 06/24/ | | [place], | | | | 1991 | | [place] [address] | | | | | | [phone] | | | +--------+ + + + [...] CANTU | | | | | | [place] [address] | | | | | | [phone] | | | | | | | | +--------+ + + + + | 08/28/ | Office | Cardiology | Dora De La Torre | | | 2019 | Visit | | [address] | | | | | | [address] | | | | | | [place] [address] | | | | | | [phone] | | | | | | | | +--------+ + + + + documented as of this encounter Visit Diagnoses Not on filedocumented in this encounter"
--- OUTSIDE RECORDS SUMMARY | ~2020-05-13 | XMS | Encounter Summary ---
Demographics + + + | Address | [address] | | | [place] [address] | + + + | Home Phone [...] [place], [place] | | | | | [address] | | + + + + + Care Team Providers + +------+ + | Care Director Geothermal Operations Name | Role | Phone | + +------+ + PCP | Unavailable | + +------+ + Encounter Details +--------+ + + + + | Date | Type | Department | Care Team | Description | +--------+ + + + + | 12/27/ | Hospital | [facility] | | | | 1995 | Encounter | MED CTR LABORATORY | | | | | | [address] | | | | | | [place] | | | | | | [address] | | | | | | [phone] | | | +--------+ + + + [...] CNATU | | | | | | [place] [address] | | | | | | [phone] | | | | | | | | +--------+ + + + + | 08/28/ | Office | Cardiology | Dora De La Torre | | | 2020 | Visit | | [address] | | | | | | [address] | | | | | | [place] [address] | | | | | | [phone] | | | | | | | | +--------+ + + + + documented as of this encounter Visit Diagnoses Not on filedocumented in this encounter"
--- OUTSIDE RECORDS SUMMARY | ~2020-05-13 | XMS | Encounter Summary ---
Demographics + + + | Address | [address] | | | [place] [address] | + + + | Home Phone | | + + + | Preferred Language | Unknown | + + + | Marital Status | Single | + + + | Uatsdin Affiliation | Unknown | + + + [...] [place] | | | | | [address] | | + + + + + Care Team Providers + +------+ + | Care Electronic Repair Troubleshooter Name | Role | Phone | + [...] Transcriptions | + + | Interface, Supervisor Safety Deposit In - 11/04/2006 3:03 AM PST | | [address] | | [place], [place] [address] [facility] and | | ClinicsOPERATION RECORDMed Rec No.: [...] skin retractor was put in place. The [place] elevators wereused to separate the | | [...]
--- OUTSIDE RECORDS SUMMARY | ~2020-05-13 | XMS | Encounter Summary ---
Demographics + + + | Address | [address] | | | [place] [address] | + + + | Home Phone [...] [place] | | | | | [address] | | + + + + + Care Team Providers + +------+ + | Care Manager Engine Name | Role | Phone | + +------+ + | Natalee Andersen NP | PCP | | + +------+ + Encounter Details +--------+ + + + + | Date | Type | Department | Care Team | Description | +--------+ + + + + | 07/06/ | Hospital | [facility] | Latricia Feliciano | | | 2014 | Encounter | MED CTR ACUTE | D, PT [address] | | | | | PHYSICAL THERAPY | NEFTALIE [place] | | | | | [address] | [address] | | | | | [place] [address] | | | | | | [phone] | | | +--------+ + + + [...] + + + +---------+ + + | [place]-3 Fatty | Take 1,000 mg by | [...] CANTU | | | | | | [place] [address] | | | | | | [phone] | | | | | | | | +--------+ + + + + | 08/28/ | Office | Cardiology | Dora De La Torre | | | 2020 | Visit | | [address] | | | | | | [address] | | | | | | [place] [address] | | | | | | [phone] | | | | | | | | +--------+ + + + + documented as of this encounter Visit Diagnoses Not on filedocumented in this encounter"
--- OUTSIDE RECORDS SUMMARY | ~2020-05-13 | XMS | Encounter Summary ---
Demographics + + + | Address | [address] | | | [place] [address] | + + + | Home Phone [...] [place] | | | | | [address] | | + + + + + Care Team Providers + +------+ + | Care Business Process Consultant Name | Role | Phone [...] + + | 08/09/ | Clinical | [facility] | Desiree Peterson DO | Syncope, unspecified | | 2019 | Support | CARDIOLOGY [place] | [address] | syncope type | | | | [address] | [place], [place] | | | | | [place] [address] | [address] | | | | | [place] | | | | | | [address] | Dora De La Torre | | | | | [phone] | [address] | | | | | | [address] | | | | | | [place] [address] | | | | | | [phone] | | | | | | | [...] CANTU | | | | | | [place] [address] | | | | | | [phone] | | | | | | | | +--------+ + + + + | 08/28/ | Office | Cardiology | Dora De La Torre | | | 2019 | Visit | | [address] | | | | | | [address] | | | | | | [place] [address] | | | | | | [phone] | | | | | | | | +--------+ + + + + documented as of this encounter Visit Diagnoses + + | Diagnosis | + + | Syncope, unspecified syncope type | + + documented in this encounter"
--- OUTSIDE RECORDS SUMMARY | ~2020-05-13 | XMS | Encounter Summary ---
Demographics + + + | Address | [address] | | | [place] [address] | + + + | Home Phone [...] [place], [place] | | | | | [address] | | + + + + + Care Team Providers + +------+ + | Care Supervisor Elementary Education Name | Role | Phone | + +------+ + PCP | Unavailable | + +------+ + Encounter Details +--------+ + + + + | Date | Type | Department | Care Team | Description | +--------+ + + + + | 05/23/ | Hospital | [facility] | [place], | | | 2011 | Encounter | MED CTR XRAY [address] | MD [address] | | | | | [place] | [place] | | | | | [place] [address] | [address] | | | | | [phone] | | | +--------+ + + + [...] + + + +---------+ + + | [place]-3 Fatty | Take 1,000 mg by | [...] CANTU | | | | | | [place] [address] | | | | | | [phone] | | | | | | | | +--------+ + + + + | 08/28/ | Office | Cardiology | RoxannDora del rosario | | | 2019 | Visit | | [address] | | | | | | [address] | | | | | | [place] [address] | | | | | | [phone] | | | | | | | [...] | | [address] [address] | [facility] | | LUMBAR SPINE MR [...] Transcribed Date/Time: | | | 05/23/2012 16:55 Tipping Machine Operator: <Electronically Signed | | | by Adriano Anne MD> 05/23/12 0015 | | + + + + + | Procedure Note | + + | Juan, Rad Conversion - 11/30/2013 5:47 PM [facility] | | Diagnostic Imaging Department [address] [facility] | | LUMBAR SPINE MR WITHOUT CONTRAST, [...] 16:37 | |Transcribed Date/Time: 05/23/2012 16:55 | |Tipping Machine Operator: | |<Electronically Signed by Adriano Anne MD> 05/23/12 1725 | + + + +---------+ + + | Performing | Address | City/State/Zipcode | Phone Number | | Organization | | | | + +---------+ + + | [place] | | | | | [facility] | | | | + +---------+ + + documented in this encounter Visit Diagnoses Not on filedocumented in this encounter"
--- OUTSIDE RECORDS SUMMARY | ~2020-05-13 | XMS | Encounter Summary ---
Demographics + + + | Address | [address] | | | [place] [address] | + + + | Home Phone [...] [place], [place] | | | | | [address] | | + + + + + Care Team Providers + +------+ + | Care School Custodian Name | Role | Phone | + +------+ + PCP | Unavailable | + +------+ + Encounter Details +--------+ + + + + | Date | Type | Department | Care Team | Description | +--------+ + + + + | 05/23/ | Hospital | [facility] | | | | 1991 | Encounter | MED CTR XRAY [address] | | | | | | [place] | | | | | | [place] [address] | | | | | | [phone] | | | +--------+ + + + [...] | | | | | [place] [address] | | | | | | [phone] | | | | | | | | +--------+ + + + + | 08/28/ | Office | Cardiology | Dora De La Torre | | | 2019 | Visit | | [address] | | | | | | [address] | | | | | | [place] [address] | | | | | | [phone] | | | | | | | | +--------+ + + + + documented as of this encounter Visit Diagnoses Not on filedocumented in this encounter"
--- OUTSIDE RECORDS SUMMARY | ~2020-05-13 | XMS | Encounter Summary ---
Demographics + + + | Address | [address] | | | [place] [address] | + + + | Home Phone [...] [place] | | | | | [address] | | + + + + + [...] | | [address] | [place], [place] | | | | | [place], [place] | [address] | | | | | [address] | | | | | | [phone] | | | +--------+ + + + [...] CANTU | | | | | | [place] [address] | | | | | | [phone] | | | | | | | | +--------+ + + + + | 08/28/ | Office | Cardiology | Dora De La Torre | | | 2019 | Visit | | [address] | | | | | | [address] | | | | | | [place] [address] | | | | | | [phone] | | | | | | | [...] 0.83 m/s | | | MV Dec Bowie: 2.85 m/s2 MV DecT: 282.89 ms MV E Teodoro: 0.80 | | | m/s MV E/A Ratio: 0.96 E/E' Sept: 12.59 E' Lat: 0.08 m/s | | | E' Sept: 0.06 m/s RAP: 10 mmHg RV S': 0.11 m/s RVSP: | | | 27.96 mmHg TR maxP.96 mmHg TR Vmax: 2.11 m/s | | | Specialty Department Supervisor: Authenticated by: Desiree Peterson MD Report Date/Time: | | | -- [id number]:[id number] | | + + + + + [...] (A-L): 19.60 | | ml/m2LAAs A2C: 15.44 qw6SZMMC A-L A2C: 43.84 mlLAESV MOD A2C: 42.12 mlLALs A2C: | | 4.61 cmLAAs A4C: 14.18 [id number] A-L A4C: 38.73 mlLAESV MOD A4C: 37.04 mlLALs A4C: | | 4.41 cmRAAs: 12.15 mm1ZVESR A-L: 28.54 mlRAESV MOD: 28.66 mlRALs: 4.39 | | cmTAPSE: 2.42 cmAV Env.Ti: 293.94 msAV maxP.18 mmHgAV meanP.09 mmHgAV | | Vmax: 1.88 m/Eddie Vmean: 1.25 m/Eddie VTI: 36.84 cmAVA Vmax: 2.06 cm2AVA (VTI): | | 2.24 fn0BJGN Vmax: 0.00 cm2/m2AVAI (VTI): 0.00 cm2/m2LVOT Env.Ti: 299.59 msLVOT | | maxP.52 mmHgLVOT meanP.65 mmHgLVSI Dopp: 38.55 ml/m2LVSV Dopp: 82.89 | | mlLVOT Vmax: 1.27 m/sLVOT Vmean: 0.91 m/sLVOT VTI: 27.27 cmMV A Teodoro: 0.83 m/sMV | | Dec Bowie: 2.85 m/s2MV DecT: 282.89 msMV E Teodoro: 0.80 m/sMV E/A Ratio: 0.96E/E' | | Sept: 12.59E' Lat: 0.08 m/sE' Sept: 0.06 m/sRAP: 10 mmHgRV S': 0.11 m/sRVSP: | | 27.96 mmHgTR maxP.96 mmHgTR Vmax: 2.11 m/s Specialty Department Supervisor:Authenticated by: | | Desiree Peterson MDReport Date/Time: -- [id number]:31:1 IMPRESSION: 1. Overall left | | ventricular [...] A Teodoro: 0.83 m/s | |MV Dec Bowie: 2.85 m/s2 | |MV DecT: 282.89 ms | |MV E Teodoro: 0.80 m/s | |MV E/A Ratio: 0.96 | |E/E' Sept: 12.59 | |E' Lat: 0.08 m/s | |E' Sept: 0.06 m/s | |RAP: 10 mmHg | |RV S': 0.11 m/s | |RVSP: 27.96 mmHg | |TR maxP.96 mmHg | |TR Vmax: 2.11 m/s | | | |Specialty Department Supervisor: | |Authenticated by: Desiree Peterson MD | |Report Date/Time: -- [id number]:31:1 | | | |IMPRESSION: | |1. Overall [...]
--- OUTSIDE RECORDS SUMMARY | ~2020-05-13 | XMS | Encounter Summary ---
Demographics + + + | Address | [address] | | | [place] [address] | + + + | Home Phone [...] [place] | | | | | [address] | | + + + + + Care Team Providers + +------+ + | Care Member Service Specialist Name | Role | Phone [...] + + | 03/26/ | Telephone | [facility] | Thierry Fry | Medication Prior | | 2014 | | MEDICINE [address] [place] [address] | MD Lisa [address] | Authorization | | | | [place], | [place] | (Dexilant 60Mg) | | | | [place] [address] | [address] | | | | | [phone] | | | +--------+ + + + [...] were not received I contacted insurance ID# [id number] This has been denied. The patient must try and fail 2 of the following Omeprazole Protonix Prevacid Nexium Please advise elepho ne Encounter - Saba Acosta Cert [place] - 03/26/2015 1:32 PM PDTCalled and requested a prior authorization Requested for via fax from [employer] Prior auth medication Dexilant 60MgElectronically signed by [...] | | | | | [place] [address] | | | | | | [phone] | | | | | | | | +--------+ + + + + | 08/28/ | Office | Cardiology | Dora De La Torre | | | 2019 | Visit | | [address] | | | | | | [address] | | | | | | [place] [address] | | | | | | [phone] | | | | | | | | +--------+ + + + + documented as of this encounter Visit Diagnoses Not on filedocumented in this encounter"
--- OUTSIDE RECORDS SUMMARY | ~2020-05-13 | XMS | Encounter Summary ---
Demographics + + + | Address | [address] | | | [place] [address] | + + + | Home Phone [...] [place] | | | | | [address] | | + + + + + Care Team Providers + +------+ + | Care Pocket Builder Name | Role | Phone | [...] + + | 10/22/ | Telephone | [facility] | Susu Peralta, | Other | | 2019 | | CARDIOLOGY [place] Nath RN | | | | | [address] | | | | | | [place], [place] | | | | | | [address] | | | | | | [phone] | | | +--------+ + + + [...] [address] | | | | | | [place] [address] | | | | | | [phone] | | | | | | | | +--------+ + + + + | 08/28/ | Office | Cardiology | Dora De La Torre | | | 2019 | Visit | | [address] | | | | | | [address] | | | | | | [place] [address] | | | | | | [phone] | | | | | | | | +--------+ + + + + documented as of this encounter Visit Diagnoses Not on filedocumented in this encounter"
--- OUTSIDE RECORDS SUMMARY | ~2020-05-13 | XMS | Encounter Summary ---
Demographics + + + | Address | [address] | | | [place] [address] | + + + | Home Phone [...] [place] | | | | | [address] | | + + + + + Care Team Providers + +------+ + | Care Worker'S Compensation Claims Examiner Name | Role | Phone [...] | Services | ogy | Epigastric | [facility], | Tyrese Shelley MD | | | Required | | abdominal | [place], | [address], | | | | | pain GERD | [employer] [address] | [address] | | | | | (gastroesoph | [address] | [place], | | | | | ageal reflux | [address] | [place] [address] | | | | | disease) | [place], | Phone: | | | | | Fatty liver | [place] [address] | [phone] | | | | | DM | Phone: | Fax: | | | | | (diabetes | [phone] | [phone] | | | | | mellitus) | Fax: | | | | | | (HCC) | [phone] | | +--------+ + + + + [...] | Office | [facility] | [facility], | Epigastric abdominal | | 2012 | Visit | GASTROENTEROLOGY | FORTUNATO Thomas [address] | pain (Primary Dx); | | | | [address] | [address] | GERD | | | | [address] [place], [place] | [place] | (gastroesophageal | | | | [address] | [address] | reflux disease); | | | | [phone] | | Fatty liver; DM | | [...] years ago by Dr. Saravanan Tsai, in [facility]. Colonoscopy was done 05/[address] Hamlin in [facility]. Allergies Allergen Reactions Demerol [...] encounter Miscellaneous Notes Miscellaneous - ONBASE SCAN [facility] - 03/06/2013 12:00 AM PDT iscellaneous - ONBASE SCAN [facility] - 03/06/2013 12:00 AM PDTEle ctronically signed by Mariah Schulte at 04/09/2013 9:48 AM PDTMiscellaneous - ONBASE SCAN [facility] T - 03/06/2013 12:00 AM PDT [...] [address] | | | | | | [place] [address] | | | | | | [phone] | | | | | | | | +--------+ + + + + | 08/28/ | Office | Cardiology | Dora De La Torre | | | 2019 | Visit | | [address] | | | | | | [address] | | | | | | [place] [address] | | | | | | [phone] | | | | | | | [...]
--- OUTSIDE RECORDS SUMMARY | ~2020-05-13 | XMS | Encounter Summary ---
Demographics + + + | Address | [address] | | | [place] [address] | + + + | Home Phone [...] [place], [place] | | | | | [address] | | + + + + + Care Team Providers + +------+ + | Care Train Operations Supervisor Name | Role | Phone | + +------+ + PCP | Unavailable | + +------+ + Encounter Details +--------+ + + + + | Date | Type | Department | Care Team | Description | +--------+ + + + + | 02/24/ | Hospital | [facility] | | | | 1997 - | Encounter | MED CTR GENERIC PSY | | | | | | CONV DEPT [address] | | | | 02/26/ | | [place], | | | | 1997 | | [place] [address] | | | | | | [phone] | | | +--------+ + + + [...] [address]U | | | | | | [place] [address] | | | | | | [phone] | | | | | | | | +--------+ + + + + | 08/28/ | Office | Cardiology | Dora De La Torre | | | 2019 | Visit | | [address] | | | | | | [address] | | | | | | [place] [address] | | | | | | [phone] | | | | | | | | +--------+ + + + + documented as of this encounter Visit Diagnoses Not on filedocumented in this encounter"
--- OUTSIDE RECORDS SUMMARY | ~2020-05-13 | XMS | Encounter Summary ---
Demographics + + + | Address | [address] | | | [place] [address] | + + + | Home Phone [...] [place] | | | | | [address] | | + + + + + Care Team Providers + +------+ + | Care Field Training Agent Name | Role | Phone | [...] + + | 08/08/ | Telephone | [facility] | Ashley Chávez | Other (Questions | | 2019 | | CARDIOLOGY [place], Clinical Care Coordinator | about coverage. ) | | | | [address] | | | | | | [place] | | | | | | [address] | | | | | | [phone] | | | +--------+ + + + [...] Miscellaneous Notes Telephone Encounter - Ashley Chávez, Clinical Care Coordinator - 08/08/2019 10:58 AM Seferino foster called and wanted to know if her monitor needed to be AUTHORIZED. I asked Danelle and she said that because she had medicare part A and B, it does not need kayode or auth. I told this information to the patient, patient stated understanding. JKASSIE:SCAFFOLD SETTER-AAMA. [facility] umphilipp in this encounter Plan of [...] | | | | | | [place] [address] | | | | | | [phone] | | | | | | | | +--------+ + + + + | 08/28/ | Office | Cardiology | Dora De La Torre | | | 2019 | Visit | | [address] | | | | | | [address] | | | | | | [place] [address] | | | | | | [phone] | | | | | | | | +--------+ + + + + documented as of this encounter Visit Diagnoses Not on filedocumented in this encounter"
--- OUTSIDE RECORDS SUMMARY | ~2020-05-13 | XMS | Encounter Summary ---
Demographics + + + | Address | [address] | | | [place] [address] | + + + | Home Phone [...] [place] | | | | | [address] | | + + + + + Care Team Providers + +------+ + | Care Automated Cutting Machine Operator Name | Role | [...] | | | spondylolist | | [address] | | | | | hesis | | [place], | | | | | Spinal | | [place] [address] | | | | | stenosis, | | Phone: | | | | | lumbar | | [phone] | | | | | region, | | Fax: | | | | | without | | [phone] | | | | | neurogenic | [...] + + | 07/02/ | Hospital | [facility] | Frandy Teresa, | Spinal stenosis, | | 2013 | Encounter | [facility] X[facility] [address] | DO [address] | lumbar region, | | | | [place] | [address] [place], [place] | without neurogenic | | | | [place] [address] | [address] | claudication | | | | [phone] | | (Primary Dx) | +--------+ + [...] + + + +---------+ + + | Tornillo-3 Fatty | Take 1,000 mg by | [...] | | | | [place] [address] | | | | | | [phone] | | | | | | | | +--------+ + + + + | 08/28/ | Office | Cardiology | Britt Dora | | | 2019 | Visit | | [address] | | | | | | [address] | | | | | | [place] [address] | | | | | | [phone] | | | | | | | [...]
--- OUTSIDE RECORDS SUMMARY | ~2020-05-13 | XMS | Encounter Summary ---
Demographics + + + | Address | [address] | | | [place] [address] | + + + | Home Phone [...] [place], [place] | | | | | [address] | | + + + + + Care Team Providers + +------+ + | Care Livestock Yard Attendant Name | Role | Phone | + +------+ + PCP | Unavailable | + +------+ + Encounter Details +--------+ + + + + | Date | Type | Department | Care Team | Description | +--------+ + + + + | 04/16/ | Hospital | [facility] | | | | 1997 | Encounter | MED CTR XRAY [address] | | | | | | [address] | | | | | | [place] [address] | | | | | | [phone] | | | +--------+ + + + [...] | | | | | [place] [address] | | | | | | [phone] | | | | | | | | +--------+ + + + + | 08/28/ | Office | Cardiology | Dora De La Torre | | | 2019 | Visit | | [address] | | | | | | [address] | | | | | | [place] [address] | | | | | | [phone] | | | | | | | | +--------+ + + + + documented as of this encounter Visit Diagnoses Not on filedocumented in this encounter"
--- OUTSIDE RECORDS SUMMARY | ~2020-05-13 | XMS | Encounter Summary ---
Demographics + + + | Address | [address] | | | [place] [address] | + + + | Home Phone [...] [place] | | | | | [address] | | + + + + + Care Team Providers + +------+ + | Care Reclamation Engineer Name | Role | Phone | [...] updated | | | | | [address] [facility] [facility], | address | | | | | [address] [place] | | | | | | [place] [address] | | | | | | [phone] | | | +--------+ + + + [...] this encounter Miscellaneous Notes Telephone Encounter - Kimbelry Ellison RN - 03/03/2015 10:59 AM PDTRelayed [...] stroke work up she had done at [place] was quite thorough and she did not [...] | | | | | [place] [address] | | | | | | [phone] | | | | | | | | +--------+ + + + + | 08/28/ | Office | Cardiology | Dora De La Torre | | | 2019 | Visit | | [address] | | | | | | [address] | | | | | | [place] [address] | | | | | | [phone] | | | | | | | | +--------+ + + + + documented as of this encounter Visit Diagnoses Not on filedocumented in this encounter"
--- OUTSIDE RECORDS SUMMARY | ~2020-05-13 | XMS | Encounter Summary ---
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 Had an appointment today in [facility]. She has been feeling dizzy [...] Take by mouth. Blood Glucose Monitoring Suppl ([employer] VERIO FLEX SYSTEM) w/Device KIT by Does [...] mg by mouth Daily. Cholecalciferol (VITAMIN D-3) 11544 units CAPS Take 50,000 Units by mouth [...] tablet Take 10 mg by mouth nightly. [place]-3 Fatty Acids (FISH OIL CONCENTRATE) 1000 MG [...] [address] | | | | | | [place] [address] | | | | | | [phone] | | | | | | | | +--------+ + + + + | 08/28/ | Office | Cardiology | Dora De La Torre | | | 2019 | Visit | | [address] | | | | | | [address] | | | | | | [place] [address] | | | | | | [phone] | | | | | | | [...]
--- OUTSIDE RECORDS SUMMARY | ~2020-05-13 | XMS | Encounter Summary ---
Demographics + + + | Address | [address] | | | [place] [address] | + + + | Home Phone [...] [place], [place] | | | | | [address] | | + + + + + Care Team Providers + +------+ + | Care Client Hr Manager Name | Role | Phone | + +------+ + PCP | Unavailable | + +------+ + Encounter Details +--------+ + + + + | Date | Type | Department | Care Team | Description | +--------+ + + + + | 02/22/ | Hospital | [facility] | | | | 1996 | Encounter | MED CTR EMERGENCY | | | | | | [address] | | | | | | [place] | | | | | | [address] | | | | | | [phone] | | | +--------+ + + + [...] | | | | | [place] [address] | | | | | | [phone] | | | | | | | | +--------+ + + + + | 08/28/ | Office | Cardiology | Dora De La Torre | | | 2020 | Visit | | [address] | | | | | | [address] | | | | | | [place] [address] | | | | | | [phone] | | | | | | | | +--------+ + + + + documented as of this encounter Visit Diagnoses Not on filedocumented in this encounter"
--- OUTSIDE RECORDS SUMMARY | ~2020-05-13 | XMS | Encounter Summary ---
Demographics + + + | Address | [address] | | | [place] [address] | + + + | Home Phone [...] [place] | | | | | [address] | | + + + + + Care Team Providers + +------+ + | Care Coal Sampler Name | Role | Phone | [...] [place] | | | | | | [address] | | | | | | [phone] | | | +--------+ + + + [...] | | | | | [place] [address] | | | | | | [phone] | | | | | | | | +--------+ + + + + | 08/28/ | Office | Cardiology | Dora De La Torre | | | 2020 | Visit | | [address] | | | | | | [address] | | | | | | [place] [address] | | | | | | [phone] | | | | | | | | +--------+ + + + + documented as of this encounter Visit Diagnoses Not on filedocumented in this encounter"
--- OUTSIDE RECORDS SUMMARY | ~2020-05-13 | XMS | Encounter Summary ---
Demographics + + + | Address | [address] | | | [place] [address] | + + + | Home Phone [...] [place] | | | | | [address] | | + + + + + Care Team Providers + +------+ + | Care Storage Wharfage Clerk Name | Role | Phone | [...] [place] | | | | | | [id number] | | | | | | [phone] | | | +--------+ + + + [...] | | | | | [place] [address] | | | | | | [phone] | | | | | | | | +--------+ + + + + | 08/28/ | Office | Cardiology | Dora De La Torre | | | 2020 | Visit | | [address] | | | | | | [address] | | | | | | [place] [address] | | | | | | [phone] | | | | | | | | +--------+ + + + + documented as of this encounter Visit Diagnoses Not on filedocumented in this encounter"
--- OUTSIDE RECORDS SUMMARY | ~2020-05-13 | XMS | Encounter Summary ---
Demographics + + + | Address | [address] | | | [place] [address] | + + + | Home Phone [...] [place] | | | | | [address] | | + + + + + Care Team Providers + +------+ + | Care Oleomargarine Maker Name | Role | Phone | [...] + + | 08/20/ | Documentati | [facility] | Katharine Moncada, | Other (urgent | | 2019 | on | CARDIOLOGY [place] | Technologist | report) | | | | [address] | | | | | | [place] | | | | | | [address] | | | | | | [phone] | | | +--------+ + + + [...] | | | | | [place] [address] | | | | | | [phone] | | | | | | | | +--------+ + + + + | 08/28/ | Office | Cardiology | Dora De La Torre | | | 2020 | Visit | | [address] | | | | | | [address] | | | | | | [place] [address] | | | | | | [phone] | | | | | | | | +--------+ + + + + documented as of this encounter Visit Diagnoses Not on filedocumented in this encounter"
--- OUTSIDE RECORDS SUMMARY | ~2020-05-13 | XMS | Encounter Summary ---
Demographics + + + | Address | [address] | | | [place] [address] | + + + | Home Phone [...] [place] | | | | | [address] | | + + + + + Care Team Providers + +------+ + | Care Neurosurgical Nurse Practitioner Name | Role | Phone [...] [place] | | | | | | [address] | | | | | | [phone] | | | +--------+ + + + [...] | | | | | [place] [address] | | | | | | [phone] | | | | | | | | +--------+ + + + + | 08/28/ | Office | Cardiology | Dora De La Torre | | | 2020 | Visit | | [address] | | | | | | [address] | | | | | | [place] [address] | | | | | | [phone] | | | | | | | | +--------+ + + + + documented as of this encounter Visit Diagnoses Not on filedocumented in this encounter"
--- OUTSIDE RECORDS SUMMARY | ~2020-05-13 | XMS | Encounter Summary ---
Demographics + + + | Address | [address] | | | [place] [address] | + + + | Home Phone [...] [place] | | | | | [address] | | + + + + + Care Team Providers + +------+ + | Care Rotary Driller Prospecting Name | Role | Phone | + +------+ + | Natalee Andersen NP | PCP | | + +------+ + Encounter Details +--------+ + + + + | Date | Type | Department | Care Team | Description | +--------+ + + + + | 09/27/ | Hospital | [facility] | Frandy Teresa, | Lumbar spondylosis; | | 2013 | Encounter | MED CTR XRAY [address] | DO [address] | S/P lumbar fusion | | | | [place] | [address] [place], [place] | | | | | [place] [address] | [address] | | | | | [phone] | | | +--------+ + + + [...] [address] | | | | | | [place] [address] | | | | | | [phone] | | | | | | | | +--------+ + + + + | 08/28/ | Office | Cardiology | Dora De La Torre | | | 2019 | Visit | | [address] | | | | | | [address] | | | | | | [place] [address] | | | | | | [phone] | | | | | | | [...] + | MISCELLANEOUS LAB | | | [phone] | + +---------+ + + | MISCELANIOUS LAB | | | [phone] | + +---------+ + + documented in this encounter Visit Diagnoses + + | Diagnosis | + + | Lumbar spondylosis Lumbosacral spondylosis without myelopathy | + + | S/P lumbar fusion Arthrodesis status | + + documented in this encounter"
--- OUTSIDE RECORDS SUMMARY | ~2020-05-13 | XMS | Encounter Summary ---
Demographics + + + | Address | [address] | | | [place] [address] | + + + | Home Phone [...] [place], [place] | | | | | [address] | | + + + + + Care Team Providers + +------+ + | Care Materials Technician Name | Role | Phone | + +------+ + PCP | Unavailable | + +------+ + Encounter Details +--------+ + + + + | Date | Type | Department | Care Team | Description | +--------+ + + + + | 12/27/ | Hospital | [facility] | | | | 1997 | Encounter | MED CTR EMERGENCY | | | | | | [address] | | | | | | [place] | | | | | | [address] | | | | | | [phone] | | | +--------+ + + + [...] | | | | | [place] [address] | | | | | | [phone] | | | | | | | | +--------+ + + + + | 08/28/ | Office | Cardiology | Dora De La Torre | | | 2020 | Visit | | [address] | | | | | | [address] | | | | | | [place] [address] | | | | | | [phone] | | | | | | | | +--------+ + + + + documented as of this encounter Visit Diagnoses Not on filedocumented in this encounter"
--- OUTSIDE RECORDS SUMMARY | ~2020-05-13 | XMS | Encounter Summary ---
Demographics + + + | Address | [address] | | | [place] [address] | + + + | Home Phone [...] [place] | | | | | [address] | | + + + + + Care Team Providers + +------+ + | Care Practice Coordinator Name | Role | Phone | [...] | | | [address] [place] | [place] [address] | | | | | [place] [address] | | | | | | [phone] | | | +--------+ + + + [...] | | | | | [place] [address] | | | | | | [phone] | | | | | | | | +--------+ + + + + | 08/28/ | Office | Cardiology | Dora De La Torre | | | 2019 | Visit | | [address] | | | | | | [address] | | | | | | [place] [address] | | | | | | [phone] | | | | | | | [...]
--- OUTSIDE RECORDS SUMMARY | ~2020-05-13 | XMS | Encounter Summary ---
Demographics + + + | Address | [address] | | | [place] [address] | + + + | Home Phone [...] [place] | | | | | [address] | | + + + + + Care Team Providers + +------+ + | Care Sports Equipment Repairer Name | Role | Phone [...] + + | 06/12/ | Office | [facility] | Chris Nicole, | Spondylisthesis | | 2013 | Visit | NEUROSURGERY [address] | PA-C [address] | (Primary Dx); | | | | [address] | [place], [place] | Radiculopathy of | | | | [place], [place] | [address] | leg; Lumbar spine | | | | [address] | | instability; Lumbar | | | | [phone] | | spondylosis; | | | | [...] f rom the original. ZANE Castillo [address] [place], [place] [address] FAX: NEUROSURGERY HISTORY AND PHYSICAL EXAMINATION CHIEF [...] Take 15 mg by mouth nightl y. 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 CRANIAL NERVES: II: Acuity is intact. [...] Intrinsics 5 5 Ulnar Intrinsics 5 5 Welder Fitter Gas Strength 5 5 Hip Flexion 5 4* [...] [address] | | | | | | [place] [address] | | | | | | [phone] | | | | | | | | +--------+ + + + + | 08/28/ | Office | Cardiology | Dora De La Torre | | | 2019 | Visit | | [address] | | | | | | [address] | | | | | | [place] [address] | | | | | | [phone] | | | | | | | [...]
--- OUTSIDE RECORDS SUMMARY | ~2020-05-13 | XMS | Encounter Summary ---
Demographics + + + | Address | [address] | | | [place] [address] | + + + | Home Phone [...] [place] | | | | | [address] | | + + + + + Care Team Providers + +------+ + | Care Malted Milk Supervisor Name | Role | Phone | [...] [place] | | | | | | [place] | | | | | | [address] | | | | | | [phone] | | | +--------+ + + + [...] | | | | | [place] [address] | | | | | | [phone] | | | | | | | | +--------+ + + + + | 08/28/ | Office | Cardiology | Dora De La Torre | | | 2020 | Visit | | [address] | | | | | | [address] | | | | | | [place] [address] | | | | | | [phone] | | | | | | | | +--------+ + + + + documented as of this encounter Visit Diagnoses Not on filedocumented in this encounter"
--- OUTSIDE RECORDS SUMMARY | ~2020-05-13 | XMS | Encounter Summary ---
Demographics + + + | Address | [address] | | | [place] [address] | + + + | Home Phone [...] [place] | | | | | [address] | | + + + + + Care Team Providers + +------+ + | Care Spine Supervisor Name | Role | Phone | [...] [address] | | | | | [place], [place] | Shaheen Simons | | | | | [address] | [place] [address] | | | | | [phone] | [phone] | | | | | | | [...] [address] | | | | | | [place] [address] | | | | | | [phone] | | | | | | | | +--------+ + + + + | 08/28/ | Office | Cardiology | Dora De La Torre | | | 2019 | Visit | | [address] | | | | | | [address] | | | | | | [place] [address] | | | | | | [phone] | | | | | | | [...] GIVEN Testing | | | performed at [facility];[address] [place] [address];[place] [address] CULTURE | | | 50,000 TO 100,000 CFU/ML | | | MIXED GRAM POSITIVE HAIDER NO SUSCEPTIBILITY TO FOLLOW | | | MULTIPLE ORGANISM TYPES PRESENT, | | | SUGGESTIVE OF CONTAMINATION OR COLONIZATION. SUGGEST RECOLLECTION FOR | | | CULTURE. Testing | | | performed at [facility];[address] [place] [address];[place] [address] REPORT | | | STATUS 06/08/2012 FINAL [...]
--- OUTSIDE RECORDS SUMMARY | ~2020-05-13 | XMS | Encounter Summary ---
Demographics + + + | Address | [address] | | | [place] [address] | + + + | Home Phone [...] [place], [place] | | | | | [address] | | + + + + + Care Team Providers + +------+ + | Care Face Boss Name | Role | Phone | + +------+ + PCP | Unavailable | + +------+ + Encounter Details +--------+ + + + + | Date | Type | Department | Care Team | Description | +--------+ + + + + | 02/28/ | Hospital | [facility] | Deon Gonzales | | | 2012 | Encounter | MED CTR SLEEP | MD La[place] | | | | | [place] [address] | [facility] | | | | | [place], [place] | [place] [address] | | | | | [address] | [phone] | | | | | [phone] | | | +--------+ + + + [...] - 02/29/2012 2:36 PM PDTDATE: 02/29/2012 cc: [facility] Deon Gonzales Jr., MD, [facility] POSITIVE PRESSURE TITRATION STUDY CLINICAL INFORMATION: [...] the patient scored 18 points on the [place] Sleepiness Scale, which endorses a severe degree [...] advised. Deon Gonzales Jr., MD, FAASM Diplomate [employer] Board of Internal Medicine Diplomate in Sleep Medicine Real Estate Loan Processor, [facility] Clinical Resource Specialist Katelin joy [facility] JOB #: [id number] EXT JOB #:[id number] EDITED: 03/03/2012 07:26 <Electronically Signed by Deon [...] [address] | | | | | | [place] [address] | | | | | | [phone] | | | | | | | | +--------+ + + + + | 08/28/ | Office | Cardiology | Dora De La Torre | | | 2019 | Visit | | [address] | | | | | | [address] | | | | | | [place] [address] | | | | | | [phone] | | | | | | | | +--------+ + + + + documented as of this encounter Visit Diagnoses Not on filedocumented in this encounter"
--- OUTSIDE RECORDS SUMMARY | ~2020-05-13 | XMS | Encounter Summary ---
Demographics + + + | Address | [address] | | | [place] [address] | + + + | Home Phone [...] [place] | | | | | [address] | | + + + + + Care Team Providers + +------+ + | Care Roll Former Name | Role | Phone | [...] + + | 07/06/ | Emergency | [facility] | Yunior Sherman, | Chest pain, | | 2014 | | MED CTR EMERGENCY | MD [address] | unspecified chest | | | | CENTER [address] | [place], [place] | pain type (Primary | | | | [place], [place] | [address] | Dx) | | | | [address] | | | | | | [phone] | | | +--------+ + + + [...] sent through Care Everywhere.CHEST PAIN, NON CARDIAC (TAJIK)documented in this encounter Medications at Time of [...] 0 | | | | (VITAMIN D-3) [address] | mouth Once a week. | | [...] + + + +---------+ + + | [place]-3 Fatty | Take 1,000 mg by | [...] COMPLAINT No chief complaint on file. HPI iCndy Arndt is a 59 y.o. female who [...] castellanos DO; [facility] Cardiac catherization CURRENT MEDICATIONS Previous [...] mg by mouth Daily. CHOLECALCIFEROL (VITAMIN D-3) 63909 UNITS CAPS Take 50,000 Units by mouth [...] was recently discharged from a [facility] facility. She's had more than 24 hours [...] [address] | | | | | | [place] [address] | | | | | | [phone] | | | | | | | | +--------+ + + + + | 08/28/ | Office | Cardiology | Dora De La Torre | | | 2019 | Visit | | [address] | | | | | | [address] | | | | | | [place] [address] | | | | | | [phone] | | | | | | | [...] [address] | [place] | [phone] | | [facility] | | [address] | | | - LABORATORY | | [...] ST. | [address] | [place] | [phone] | | [facility] | | [address] | | | - LABORATORY | | [...] | | | | | | [employer] | | | | | [...] [address] | [place] | [phone] | | [facility] | | [address] | | | - LABORATORY | | [...] | mL/min/1.73m2 | DORA | | | CHADIAN | RATE,ESTIMATED | | MEDICAL | | | | mL/min/1.39p7Qicy than | | CENTER - | | [...] [address] | [place] | [phone] | | [facility] | | [address] | | | - LABORATORY | | [...] ST. | [address] | [place] | [phone] | | [facility] | | [address] | | | - LABORATORY | | [...] | | | | MD MANSI, LACEY ([id number]) | | | | | | on [...]
--- OUTSIDE RECORDS SUMMARY | ~2020-05-13 | XMS | Encounter Summary ---
Demographics + + + | Address | [address] | | | [place] [address] | + + + | Home Phone [...] [place] | | | | | [address] | | + + + + + Care Team Providers + +------+ + | Care Severity Of Illness Coordinator Name | Role | Phone | [...] sleep apnea) | | | | [address] [place] | [address] [place] | (Primary Dx); | | | | [place] [address] | [place] [address] | Sleepiness | | | | [phone] | [phone] | | | | | | | [...] differen t from the original. 03/06/13 1000 [place] Sleepiness Scale Sitting and reading 3 Watching [...] by mouth Daily., Disp: , Rfl: ; [place]-3 Fatty Acids (FISH OIL CONCENTRATE) 1000 MG [...] th is encounter Miscellaneous Notes M[facility] - 03/06/2013 12:00 AM PDT iscellaneous - [facility] - 03/06/2013 12:00 AM PDTEle ctronically [...] [address] | | | | | | [place] [address] | | | | | | [phone] | | | | | | | | +--------+ + + + + | 08/28/ | Office | Cardiology | Dora De La Torre | | | 2019 | Visit | | [address] | | | | | | [address] | | | | | | [place] [address] | | | | | | [phone] | | | | | | | | +--------+ + + + + documented as of this encounter Visit Diagnoses + + | Diagnosis | + + | ROGERS (obstructive sleep apnea) - Primary Obstructive sleep apnea (adult) (pediatric) | + + | Sleepiness Other alteration of consciousness | + + documented in this encounter"
--- OUTSIDE RECORDS SUMMARY | ~2020-05-13 | XMS | Encounter Summary ---
Demographics + + + | Address | [address] | | | [place] [address] | + + + | Home Phone [...] [place] | | | | | [address] | | + + + + + Care Team Providers + +------+ + | Care Weapons Electrical Engineering Officer Name | Role | Phone | [...] [address] | | | | | [address] [place], [place] | [place], [place] | | | | | [address] | [address] | | | | | [phone] | | | +--------+ + + + [...] Dora De LaT orre | | | 2020 | visit | | [address] | | | | | | [address] | | | | | | [place] [address] | | | | | | [phone] | | | | | | | | +--------+ + + + + | 08/28/ | Office | Cardiology | Dora De La Torre | | | 2019 | Visit | | [address] | | | | | | [address] | | | | | | [place] [address] | | | | | | [phone] | | | | | | | | +--------+ + + + + documented as of this encounter Visit Diagnoses Not on filedocumented in this encounter"
--- OUTSIDE RECORDS SUMMARY | ~2020-05-13 | XMS | Encounter Summary ---
Demographics + + + | Address | [address] | | | [place] [address] | + + + | Home Phone [...] [place] | | | | | [address] | | + + + + + Care Team Providers + +------+ + | Care Put In Beat Adjuster Name | Role | Phone | + +------+ + | Natalee Andersen NP | PCP | | + +------+ + Encounter Details +--------+ + + + + | Date | Type | Department | Care Team | Description | +--------+ + + + + | 07/25/ | Hospital | [facility] | Frandy Teresa, | Status post lumbar | | 2014 | Encounter | [facility] [address] | DO [address] | spinal fusion | | | | [place] | [address] [place], [place] | | | | | [place] [address] | [address] | | | | | [phone] | | | +--------+ + + + [...] + + + +---------+ + + | Parma-3 Fatty | Take 1,000 mg by | [...] | 06/12/ | Procedure | Cardiology | oRxannmarianlarryDora | | | 2019 | visit | | [address] | | | | | | [address] | | | | | | [place] [address] | | | | | | [phone] | | | | | | | | +--------+ + + + + | 08/28/ | Office | Cardiology | D[facility] | | | 2020 | Visit | | [address] | | | | | | [address] | | | | | | [place] [address] | | | | | | [phone] | | | | | | | [...] + | MISCELLANEOUS LAB | | | [phone] | + +---------+ + + | MISCELANIOUS LAB | | | [phone] | + +---------+ + + documented in this encounter Visit Diagnoses + + | Diagnosis | + + | Status post lumbar spinal fusion Arthrodesis status | + + documented in this encounter"
--- OUTSIDE RECORDS SUMMARY | ~2020-05-13 | XMS | Encounter Summary ---
Demographics + + + | Address | [address] | | | [place] [address] | + + + | Home Phone [...] [place], [place] | | | | | [address] | | + + + + + Care Team Providers + +------+ + | Care Aerographer Name | Role | Phone | + +------+ + PCP | Unavailable | + +------+ + Encounter Details +--------+ + + + + | Date | Type | Department | Care Team | Description | +--------+ + + + + | 12/27/ | Hospital | [facility] | | | | 1997 - | Encounter | MED CTR GENERIC PSY | | | | | | CONV DEPT [address] | | | | 01/01/ | | [place], | | | | 1997 | | [place] [address] | | | | | | [phone] | | | +--------+ + + + [...] | | | | | | [place] [address] | | | | | | [phone] | | | | | | | | +--------+ + + + + | 08/28/ | Office | Cardiology | Dora De La Torre | | | 2019 | Visit | | [address] | | | | | | [address] | | | | | | [place] [address] | | | | | | [phone] | | | | | | | | +--------+ + + + + documented as of this encounter Visit Diagnoses Not on filedocumented in this encounter"
--- OUTSIDE RECORDS SUMMARY | ~2020-05-13 | XMS | Encounter Summary ---
Demographics + + + | Address | [address] | | | [place] [address] | + + + | Home Phone [...] [place], [place] | | | | | [address] | | + + + + + Care Team Providers + +------+ + | Care Apartment Coordinator Name | Role | Phone | + +------+ + PCP | Unavailable | + +------+ + Encounter Details +--------+ + + + + | Date | Type | Department | Care Team | Description | +--------+ + + + + | 12/24/ | Hospital | [facility] | | | | 1998 | Encounter | MED CTR XRAY [address] | | | | | | [address] [place] | | | | | | [place] [address] | | | | | | [phone] | | | +--------+ + + + [...] | | | | | [place] [address] | | | | | | [phone] | | | | | | | | +--------+ + + + + | 08/28/ | Office | Cardiology | Dora De La Torre | | | 2019 | Visit | | [address] | | | | | | [address] | | | | | | [place] [address] | | | | | | [phone] | | | | | | | | +--------+ + + + + documented as of this encounter Visit Diagnoses Not on filedocumented in this encounter"
--- OUTSIDE RECORDS SUMMARY | ~2020-05-13 | XMS | Encounter Summary ---
Demographics + + + | Address | [address] | | | [place] [address] | + + + | Home Phone [...] [place] | | | | | [address] | | + + + + + Care Team Providers + +------+ + | Care Nurse Leader Name | Role | Phone [...] | | Required | | branch | [facility] [address] | [address] | | | | | block | [address] | [place] | | | | | Paroxysmal | [address] | [address] | | | | | A-fib ([facility]) | [place], [place] | [address] | | | | | | [address] | [place], [place] | | | | | Schizoaffect | Phone: | [address] Phone: | | | | | chris | [phone] | [phone] | | | | | disorder, | Fax: | Fax: | | | | | bipolar type | [phone] | [phone] | | | | | (HCC) | [...] | | | [address] | [place] [address] | ([facility]); Mild | | | | [place], [place] | [phone] | hyperlipidemia; | | | | [address] | | Benign essential | | | | [phone] | | HTN; Poorly | | | [...] have referred you to Dr. 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 [...] also resol shelly with weight loss Her ZLY0CI8 VASC score is 4 (stroke, HTN, gender) [...] She has previously seen Dr. Garland in [place], and different sleep provider in [facility] when lived over there. [...] After her syncopal episode she had notified [facility] cardiology, and Dr. Marquez, who [...] PCP, or get a referral to an tail board man to get her blood sugars better controlled, [...] thirst or hunger. Psychiatric/Behavioral: Bipolar/Schizophrenia. Tx'd by [facility] Vaccines: Current on flu vaccine: 2019 Current on pneumonia vaccine:PPSV 23 05/29/2013 Habits/Social : Denies history of smoking. Denies EtOH use. Denies recreational or illici t drug use. Exercises sporadically. Lives in [place] . Outpatient Medications Prior to Visit Medication [...] chest discomfort, [facility] Resting EKG normal sinus rhythm, [...] is less well-controlled LABS Labs: 12/26/2018: ( [facility] ER)CMP: Sodium 139, potassium 4.2, chloride 99, BUN 10, creatinine 0. 7, BNP 28. CBC: WBC 7.8, hemoglobin 14.3, hematocrit 42.7, platelets 214 Labs: 09/28/2019:( [facility] ER) CBC: WBC 7.8, hemoglobin 14.9, hematocrit 43.8, platelets 221. C MP: Sodium 132, potassium 4.2, chloride 95, AST 76, ALT 76, alk phos 134 Labs: 10/11/2019:( [facility] ER) CBC: WBC 6.7, RBC 4.97, hemoglobin 15.2, hematocrit 44.7, platel ets 200. CMP: Glucose 385, BUN 7, creatinine 0.62, GFR 97, sodium 131, potassium 4.1, chlor kelby 95, albumin 4.3, total bilirubin 0.6, AST 75, ALT 73, alk phos 144. Thyroid: TSH 4.27 Labs: 10/12/2020:( [facility] ER) CBC: WBC 7, RBC 4.93, hemoglobin 14.7, hematocrit 44.1, platele ts 186 normal UA CMP: Glucose 381, BUN 6, creatinine 0.63, GFR 95, sodium 133, potassium 3.8 , chloride 97, albumin 4.3, total bili 0.6, AST 62, ALT 75, alk phos 145 thyroid: TSH 3.07 Labs: 10/20/2019:( [facility] ER) CBC: WBC 7.1, RBC 4.93, hemoglobin 15.1, hematocrit 45.2, platel ets 204. CMP: Glucose 540, BUN 8, creatinine 0.81, GFR 71, sodium 131, potassium 4.1, chlor kelby 95, albumin 4.2, total bili 0.5, AST 54, ALT 63, alk phos 123, negative screen for all d rugs except tricyclics. Thyroid: TSH 3.39. Labs: 04/20/2020: ([facility]). CMP: Sodium 130, potassium 4.1, [...] overnight teleme try stay at [facility] for syncopal episode with extremely elevated glucose levels of 404, with hemoglobin A1c of 15.2. She has problems as detailed below. As discussed in HPI, she did not have any arrhythmias [facility], and her EKG performed [...] report. I have referred her to the [facility] sleep disorders clinic for further evaluation and [...] notes for continuity of care purp kavon [facility]2020 Laurie vivar in this [...] [address] | | | | | | [place] [address] | | | | | | [phone] | | | | | | | | +--------+ + + + + | 08/28/ | Office | Cardiology | Dora De La Torre | | 2019 | Visit | | [address] | | | | | | [address] | | | | | | [place] [address] | | | | | | [phone] | | | | | | | [...] | | | A-fib ([facility]) | | | | | | Schizoaffective | | | | | | disorder, bipolar | | | | | | type ([facility]) Rapid | | | | [...]
--- OUTSIDE RECORDS SUMMARY | ~2020-05-13 | XMS | Encounter Summary ---
Demographics + + + | Address | [address] | | | [place] [address] | + + + | Home Phone [...] + + + | Author | [facility] | + + + | Organization | [facility] | + + + | Address | Unknown | + + + | Phone | Unavailable | + + + Support + + + + + | Name | Relationship | Address | Phone | + + + + + | Kelsy Bautista | [address] | [address] | | | | | [place] | | | | | [address] | | + + + + + Care Team Providers + +------+ + | Care Order Processing Manager Name | Role | Phone | [...] [id number] | | | | | | [place], [place] | | | | | | [address] | | | | | | [phone] | | | +--------+ + + + [...] | + + + + + | [facility] | [address] | [place] [address] | | | PATHOLOGY | [address] [...] Re | | | | | | [id number] | | | | + + + + + + + + | Specimen | + + | | + + + + + + + | Performing | Address | City/State/Zipcode | Phone Number | | Organization | | | | + + + + + | [facility] | [address] | [place] [address] | | | PATHOLOGY | [address] [...] Re | | | | | | [address] | | | | + + + + + + + + | Specimen | + + | | + + + + + + + | Performing | Address | City/State/Zipcode | Phone Number | | Organization | | | | + + + + + | [facility] | [address] | [place] [address] | | | PATHOLOGY | [address] [...] Re | | | | | | [address]4501 | | | | + + + + + + + + | Specimen | + + | | + + + + + + + | Performing | Address | City/State/Zipcode | Phone Number | | Organization | | | | + + + + + | [facility] | [address] | [place] [address] | | | PATHOLOGY | [address] [...] Re | | | | | | 716366 | | | | + + + + + + + + | Specimen | + + | | + + + + + + + | Performing | Address | City/State/Zipcode | Phone Number | | Organization | | | | + + + + + | [facility] | [address] | [place] [address] | | | PATHOLOGY | [address] | | | + + + + + documented in this encounter Visit Diagnoses Not on filedocumented in this encounter"
--- OUTSIDE RECORDS SUMMARY | ~2020-05-13 | XMS | Encounter Summary ---
Demographics + + + | Address | [address] | | | [place] [address] | + + + | Home Phone [...] [place] | | | | | [address] | | + + + + + Care Team Providers + +------+ + | Care Entry Specialist Name | Role | Phone | [...] | | | [address], | [place] [address] | | | | | [place] [address] | [phone] | | | | | [phone] | | | +--------+--------+ + + + [...] [address] | | | | | | [place] [address] | | | | | | [phone] | | | | | | | | +--------+ + + + + | 08/28/ | Office | Cardiology | Dora De La Torre | | | 2019 | Visit | | [address] | | | | | | [address] | | | | | | [place] [address] | | | | | | [phone] | | | | | | | | +--------+ + + + + documented as of this encounter Visit Diagnoses + + | Diagnosis | + + | Essential hypertension - Primary Unspecified essential hypertension | + + documented in this encounter"
--- OUTSIDE RECORDS SUMMARY | ~2020-05-13 | XMS | Encounter Summary ---
Demographics + + + | Address | [address] | | | [place] [address] | + + + | Home Phone [...] [place] | | | | | [address] | | + + + + + Care Team Providers + +------+ + | Care Planting Machine Operator Name | Role | Phone [...] [address] | [address] [place], [place] | | | | | [place], [place] | [address] | | | | | [address] | | | | | | [phone] | | | +--------+ + + + [...] [address] | | | | | | [place] [address] | | | | | | [phone] | | | | | | | | +--------+ + + + + | 08/28/ | Office | Cardiology | Dora De La Torre | | | 2019 | Visit | | [address] | | | | | | [address] | | | | | | [place] [address] | | | | | | [phone] | | | | | | | | +--------+ + + + + documented as of this encounter Visit Diagnoses Not on filedocumented in this encounter"
--- OUTSIDE RECORDS SUMMARY | ~2020-05-13 | XMS | Encounter Summary ---
Demographics + + + | Address | [address] | | | [place] [address] | + + + | Home Phone [...] [place] | | | | | [address] | | + + + + + Care Team Providers + +------+ + | Care Manager Spanish Name | Role | Phone | + [...] + | 07/01/ | Telephone | [facility] | Frandy Teresa, | Other (Surgery ) | | 2013 | | NE[address]OS[address] | DO [address] | | | | | [address] | [address] [place], [place] | | | | | [place], [place] | [id number] | | | | | [address] | | | | | | [phone] | | | +--------+ + + + [...] [address] | | | | | | [place] [address] | | | | | | [phone] | | | | | | | | +--------+ + + + + | 08/28/ | Office | Cardiology | Dora De La Torre | | | 2019 | Visit | | [address] | | | | | | [address] | | | | | | [place] [address] | | | | | | [phone] | | | | | | | | +--------+ + + + + documented as of this encounter Visit Diagnoses Not on filedocumented in this encounter"
--- OUTSIDE RECORDS SUMMARY | ~2020-05-13 | XMS | Encounter Summary ---
Demographics + + + | Address | [address] | | | [place] [address] | + + + | Home Phone [...] [place] | | | | | [address] | | + + + + + Care Team Providers + +------+ + | Care Order Desk Clerk Name | Role | Phone [...] + | 06/26/ | Telephone | [facility] | Frandy Teresa, | Other | | 2013 | | NE[address]OSUR[address] | DO [address] | | | | | [address] | [address] [place], [place] | | | | | [place], [place] | [id number] | | | | | [address] | | | | | | [phone] | | | +--------+ + + + [...] [address] | | | | | | [place] [address] | | | | | | [phone] | | | | | | | | +--------+ + + + + | 08/28/ | Office | Cardiology | Dora De La Torre | | | 2019 | Visit | | [address] | | | | | | [address] | | | | | | [place] [address] | | | | | | [phone] | | | | | | | | +--------+ + + + + documented as of this encounter Visit Diagnoses Not on filedocumented in this encounter"
--- OUTSIDE RECORDS SUMMARY | ~2020-05-13 | XMS | Encounter Summary ---
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 ) | | | | [place] | | | | | | [address] | | | | | | [phone] | | | +--------+ + + + [...] Miscellaneous Notes Telephone Encounter - Ashley Chávez, Floor Finisher Helper - 08/14/2019 9:16 AM Seferino foster called [...] for the time being. Patient stated understanding. JDW:SENIOR FOREMAN-AAMA. [facility] umented in this encounter Plan of Treatment [...] | | | | | [place] [address] | | | | | | [phone] | | | | | | | | +--------+ + + + + | 08/28/ | Office | Cardiology | Dora De La Torre | | | 2020 | Visit | | [address] | | | | | | [address] | | | | | | [place] [address] | | | | | | [phone] | | | | | | | | +--------+ + + + + documented as of this encounter Visit Diagnoses Not on filedocumented in this encounter"
--- OUTSIDE RECORDS SUMMARY | ~2020-05-13 | XMS | Encounter Summary ---
Demographics + + + | Address | [address] | | | [place] [address] | + + + | Home Phone [...] [place] | | | | | [address] | | + + + + + Care Team Providers + +------+ + | Care Metals Sales Representative Name | Role | Phone | + +------+ + | Basim Bolanos MD | PCP | | + +------+ + Encounter Details +--------+ + + + + | Date | Type | Department | Care Team | Description | +--------+ + + + + | 03/30/ | Hospital | [facility] | Tyrese Neely MD | | | 2012 | Encounter | MED CTR MP INTRA OP | [address] | | | | | [address] | [address] [place], [place] | | | | | [place], [place] | [address] | | | | | [address] | | | | | | [phone] | | | +--------+ + + + [...] Neely MD - 03/30/2013 12:10 [place] [address] Patient Name: CINDY ARNDT Provider: Tyrese Neely MD Unit #: [id number] Location: [facility] : 1955 Patient Name: Cindy Arndt Gender: F Procedure Date: 03/30/2013 12:10 PM Date of : 1955 Age: 57 Admit Type: Outpatient Room: Endo Room 1 Note Status: Finalized Attending MD: Tyrese Neely MD Procedure: Upper GI endoscopy Indications: Epigastric abdominal pain Providers: Tyrese Neely MD, Vanesa Anne RN, Yesenia Downing, Privacy Analyst, Guillermo Ortiz MD (Anesthesia Staff) Referring [...] physician, the nurse, the anesthesiologist and the satellite dish technician. The procedure was verified in the [...] [address] | | | | | | [place] [address] | | | | | | [phone] | | | | | | | | +--------+ + + + + | 08/28/ | Office | Cardiology | Isacc De La Torre | | 2019 | Visit | | Vanessa, PICKER PACKER [address] | | | | | | [address] | | | | | | [place] [address] | | | | | | [phone] | | | | | | | [...] + | [facility] | [address] | [place], [place] | [phone] | | [facility] | | [address] | | | - LABORATORY | | | | + + + + + | [facility] | [address] | [place], [place] | | | [facility] | | [address] | | | [...] + | [facility] | [address] | [place] | [phone] | | [facility] | | [address] | | | - LABORATORY | | | | + + + + + | [facility] | [address] | [place], [place] | | | [facility] | | [id number] [place] [address] | | | - LABORATORY | | | | + + + + + documented in this encounter Visit Diagnoses Not on filedocumented in this encounter"
--- OUTSIDE RECORDS SUMMARY | ~2020-05-13 | XMS | Encounter Summary ---
Demographics + + + | Address | [address] | | | [place] [address] | + + + | Home Phone [...] [place], [place] | | | | | [address] | | + + + + + Care Team Providers + +------+ + | Care Chairman & Co Founder Name | Role | Phone | + +------+ + PCP | Unavailable | + +------+ + Encounter Details +--------+ + + + + | Date | Type | Department | Care Team | Description | +--------+ + + + + | 06/30/ | Hospital | [facility] | | | | 1999 - | Encounter | MED CTR GENERIC PSY | | | | | | CONV DEPT [address] | | | | 07/05/ | | [place], | | | | 1999 | | [place] [address] | | | | | | [phone] | | | +--------+ + + + [...] [address] | | | | | | [place] [address] | | | | | | [phone] | | | | | | | | +--------+ + + + + | 08/28/ | Office | Cardiology | Dora De La Torre | | | 2019 | Visit | | [address] | | | | | | [address] | | | | | | [place] [address] | | | | | | [phone] | | | | | | | | +--------+ + + + + documented as of this encounter Visit Diagnoses Not on filedocumented in this encounter"
--- OUTSIDE RECORDS SUMMARY | ~2020-05-13 | XMS | Encounter Summary ---
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 ) | | | | [place] | | | | | | [address] | | | | | | [phone] | | | +--------+ + + + [...] Miscellaneous Notes Telephone Encounter - Ashley Chávez [employer] Driver - 10/25/2019 8:44 AM PSTCall m cierra [...] CLAYTONW:IRINA-AAMA. el ephone Encounter - Ashley Chávez [employer] Driver - 10/25/2019 8:40 AM PST----- Mess age from Desiree Peterson DO sent at 10/24/2019 8:42 PM PST ----- Regarding: RE: Patient's Metoprolol. We can stay on the same dose of metoprolol for now. Thanks ----- Message ----- From: Ashley Chávez [employer] Driver Sent: 10/23/2019 10:52 AM PST To: Desiree [...] | | | | | [place] [address] | | | | | | [phone] | | | | | | | | +--------+ + + + + | 08/28/ | Office | Cardiology | Dora De La Torre | | | 2020 | Visit | | [address] | | | | | | [address] | | | | | | [place] [address] | | | | | | [phone] | | | | | | | | +--------+ + + + + documented as of this encounter Visit Diagnoses Not on filedocumented in this encounter"
--- OUTSIDE RECORDS SUMMARY | ~2020-05-13 | XMS | Encounter Summary ---
Demographics + + + | Address | [address] | | | [place] [address] | + + + | Home Phone [...] [place] | | | | | [address] | | + + + + + Care Team Providers + +------+ + | Care Lead Python Developer Name | Role | Phone [...] | 08/05/ | Telephone | [facility] | Frandy Teresa, | Other | | 2013 | | NEUROSURGERY [address] | DO [address] | | | | | [address] | [address] [place], [place] | | | | | [place], [place] | [id number] | | | | | [address] | | | | | | [phone] | | | +--------+ + + + [...] | | | | [place] [address] | | | | | | [phone] | | | | | | | | +--------+ + + + + | 08/28/ | Office | Cardiology | Dora De La Torre | | | 2019 | Visit | | [address] | | | | | | [address] | | | | | | [place] [address] | | | | | | [phone] | | | | | | | | +--------+ + + + + documented as of this encounter Visit Diagnoses Not on filedocumented in this encounter"
--- OUTSIDE RECORDS SUMMARY | ~2020-05-13 | XMS | Encounter Summary ---
Demographics + + + | Address | [address] | | | [place] [address] | + + + | Home Phone [...] [place], [place] | | | | | [address] | | + + + + + Care Team Providers + +------+ + | Care Certified Surgical Assistant Name | Role | Phone | + +------+ + PCP | Unavailable | + +------+ + Encounter Details +--------+ + + + + | Date | Type | Department | Care Team | Description | +--------+ + + + + | 12/09/ | Hospital | [facility] | Serafin Bautista | | | 2011 | Encounter | MED CTR XRAY [address] | [address], [address] | | | | | [place] | [place] | | | | | [place] [address] | [address] | | | | | [phone] | | | +--------+ + + + [...] | | | | | [place] [address] | | | | | | [phone] | | | | | | | | +--------+ + + + + | 08/28/ | Office | Cardiology | Dora De La Torre | | | 2019 | Visit | | [address] | | | | | | [address] | | | | | | [place] [address] | | | | | | [phone] | | | | | | | [...] Performed At | + + + | Located Within [facility] Diagnostic Imaging Department | [facility] | | [address] | [facility] | | PROCEDURE NOTE EPIDURAL | DIAG [...] Juan, Rad Conversion - 11/30/2013 4:45 PM [facility] | | Diagnostic Imaging Department | | [address] | | | | | | [...]
--- OUTSIDE RECORDS SUMMARY | ~2020-05-13 | XMS | Encounter Summary ---
Demographics + + + | Address | [address] | | | [place] [address] | + + + | Home Phone [...] [place], [place] | | | | | [address] | | + + + + + Care Team Providers + +------+ + | Care Welder Boilermaker Name | Role | Phone | + +------+ + PCP | Unavailable | + +------+ + Encounter Details +--------+ + + + + | Date | Type | Department | Care Team | Description | +--------+ + + + + | 08/21/ | Hospital | [facility] | | | | 1996 | Encounter | MED CTR LABORATORY | | | | | | [address] | | | | | | [place] | | | | | | [address] | | | | | | [phone] | | | +--------+ + + + [...] | | | | | [place] [address] | | | | | | [phone] | | | | | | | | +--------+ + + + + | 08/28/ | Office | Cardiology | Dora De La Torre | | | 2020 | Visit | | [address] | | | | | | [address] | | | | | | [place] [address] | | | | | | [phone] | | | | | | | | +--------+ + + + + documented as of this encounter Visit Diagnoses Not on filedocumented in this encounter"
--- OUTSIDE RECORDS SUMMARY | ~2020-05-13 | XMS | Encounter Summary ---
Demographics + + + | Address | [address] | | | [place] [address] | + + + | Home Phone [...] [place] | | | | | [address] | | + + + + + Care Team Providers + +------+ + | Care Brass Sorter Name | Role | Phone | [...] + + | 04/30/ | Office | [facility] | Russell Alfaro PA | ROGERS on CPAP (Primary | | 2015 | Visit | SLEEP DISORDER 401 | [address] | Dx) | | | | [address] | [place] | | | | | [place] [address] | [address] | | | | | [phone] | | | +--------+---------+ + + + [...] encounter Progress Notes Gail Cadet, Master of [employer]hub - 04/30/2015 11:12 AM PDTFormatting of this note might be khoi rivas from the original. 04/30/15 1100 Holland Depression Inventory-II Depression Score 9 - Minimal depression Insomnia Severity Index Insomnia Severity Index 13 Herndon Sleepiness Scale Sitting and reading 3 Watching [...] appro priate paperwork. Thirty minutes were spent [id number], with the majority of time spent i [...] CANTU | | | | | | [place] [address] | | | | | | [phone] | | | | | | | | +--------+ + + + + | 08/28/ | Office | Cardiology | Dora De La Torre | | | 2020 | Visit | | CAROLINE Mendez [address] | | | | | | [place] | | | | | | [place] [address] | | | | | | [phone] | | | | | | | | +--------+ + + + + documented as of this encounter Visit Diagnoses + + | Diagnosis | + + | ROGERS on CPAP - Primary Obstructive sleep apnea (adult) (pediatric) | + + documented in this encounter"
--- OUTSIDE RECORDS SUMMARY | ~2020-05-13 | XMS | Encounter Summary ---
Demographics + + + | Address | [address] | | | [place] [address] | + + + | Home Phone [...] [place] | | | | | [address] | | + + + + + Care Team Providers + +------+ + | Care Indirect Fire Infantryman Name | Role | Phone | [...] + | 02/21/ | Refill | [facility] | Deon Gonzales | Medication Refill | | 2012 | | SLEEP DISORDER 401 | MD Laureano [address] | | | | | [address] [place] | [address] | | | | | [place] [address] | [place] [address] | | | | | [phone] | [phone] | | | | | | | [...] - 02/22/2013 9:32 AM PDTFaxed to divya [facility] documented in this encount er Plan of [...] | | | | [place] [address] | | | | | | [phone] | | | | | | | | +--------+ + + + + | 08/28/ | Office | Cardiology | Dora De La Torre | | | 2020 | Visit | | [address]INE Mendez [address] | | | | | | [address] | | | | | | [place] [address] | | | | | | [phone] | | | | | | | | +--------+ + + + + documented as of this encounter Visit Diagnoses + + | Diagnosis | + + | Obstructive sleep apnea (adult) (pediatric) - Primary | + + documented in this encounter"
--- OUTSIDE RECORDS SUMMARY | ~2020-05-13 | XMS | Encounter Summary ---
Demographics + + + | Address | [address] | | | [place] [address] | + + + | Home Phone [...] [place] | | | | | [address] | | + + + + + [...] NOT | | | | [address] | [address] [place], [place] | PERFORMED | | | | [place], [place] | [address] | | | | | [address] | | | | | | [phone] | | | +--------+---------+ + + + [...] + + + +---------+ + + | [place]-3 Fatty | Take 1,000 mg by | [...] this en counter H&P Notes ONBRUCE ABREU [facility] - 06/21/2014 12:00 AM PDT [...] MD at 06/26/2014 8:05 AM PDTONBRUCE ABREU [facility] - 06/26 12:00 AM PDT NBRUCE ZAMORA N [facility] - 06/26/2014 12:00 AM PDT NBASE SCAN [facility] - 06/12/2014 12:00 AM PDTElectronically signed by Mariah Schulte at 06/12 7:30 AM [facility] - 06/11/2014 12:00 AM PDT documented in this encounter Miscellaneous Notes Miscellaneous - ONBASE SCAN [facility] - 06/26/2014 12:00 AM PDT [...] stenosis, lumbar region, without neurogenic claudication ). Transitions Rn Care Coordinator visit is in response to an electronic spiritual care consult request. Patient wa s resting comfortably in bed; she was attended by her mom and dad - both sate nearby and see med very attentive and supportive. Cindy is Amish, attends [employer], and is strong in her rangel. She is excited about taking care of her back problem and fe els very secure in Dr. Teresa's care. She welcomed prayer, and expressed appreciation for th visit. Follow up with regular visits, emotional and spiritual support. iscellaneo us - ONBASE SCAN [facility] - 06/25/2014 12:00 AM PDTElectronically [...] CANTU | | | | | | [place] [address] | | | | | | [phone] | | | | | | | | +--------+ + + + + | 08/28/ | Office | Cardiology | Dora De La Torre | | | 2019 | Visit | | [address]OLINE Mendez [address] | | | | | | [address] [address] | | | | | | [place] [address] | | | | | | [phone] | | | | | | | [...] mL/min/1.73m2 | [facility] | | | FINNISH | RATE,ESTIMATED | | MEDICAL | | | | mL/min/1.27e5Hbar than | | CENTER - | | [...] + | [facility] | [address] | [place], [place] | [phone] | | [facility] | | [address] | | | - LABORATORY | | | | + + + + + | [facility] | [address] | [place], [place] | | | [facility] | | [address] [place] [address] | | | - LABORATORY | | [...] + | [facility] | [address] | [place], [place] | [phone] | | [facility] | | [address] | | | - LABORATORY | | | | + + + + + | [facility] | [address] | [place] | | | [facility] | | [address] | | | [...] [address] | [place] | [phone] | | [facility] | | [address] | | | - LABORATORY | | | | + + + + + | [facility] | [address] | [place] | | | [facility] | | [address], [facility] | | | [...] St | [place] | | | [facility] | | [address] | | | - BLOOD BANK | [...] + | [facility] | [address] | [place], [place] | [phone] | | [facility] | | [address] | | | - LABORATORY | | | | + + + + + | [facility] | [address] | [place], [place] | | | [facility] | | [address], [facility] | | | [...]
--- OUTSIDE RECORDS SUMMARY | ~2020-05-13 | XMS | Encounter Summary ---
Demographics + + + | Address | [address] | | | [place] [address] | + + + | Home Phone [...] [place] | | | | | [address] | | + + + + + Care Team Providers + +------+ + | Care Professor Of Literacy Name | Role | Phone | + [...] + + | 08/16/ | Telephone | [facility] | Ashley Chávez | Other (Called to | | 2018 | | CARDIOLOGY [place] | Pollo, Tax Assessor | tell patient what | | | | [address] | | Nicholas said. ) | | | | [place] [address] | | | | | | [place] | | | | | | [address] | | | | | | [phone] | | | +--------+ + + + [...] Miscellaneous Notes Telephone Encounter - Ashley Chávez, Tax Assessor - 08/16/2019 2:57 PM PDTCall m cierra to patient to advise of Dr. Peterson's notes. Patient stated understanding. JKASSIE:BPM ARCHITECT-AAMA el ephone Encounter - Ashley Chávez Tax Assessor - 08/16/2019 2:56 PM PDT----- Mess age [...] Thanks. ----- Message ----- From: Lesa Ochoa, Tax Assessor Sent: 08/13/2019 13:31 To: Desiree Peterson DO Pt called due to two urgent reports on her monitor- both scanned in the media tab for you t o review. She said she would like a call from our office in regards to these. She stated she has been having a lot of difficulties this weekend with weakness and shortness of breath. Eric mckay adviseysy. doc umented in this encounter Plan of [...] CANTU | | | | | | [place] [address] | | | | | | [phone] | | | | | | | | +--------+ + + + + | 08/28/ | Office | Cardiology | Dora De La Torre | | | 2019 | Visit | | [address] | | | | | | [address] | | | | | | [place] [address] | | | | | | [phone] | | | | | | | | +--------+ + + + + documented as of this encounter Visit Diagnoses Not on filedocumented in this encounter"
--- OUTSIDE RECORDS SUMMARY | ~2020-05-13 | XMS | Encounter Summary ---
Demographics + + + | Address | [address] | | | [place] [address] | + + + | Home Phone [...] [place] | | | | | [address] | | + + + + + Care Team Providers + +------+ + | Care Adjunct Philosophy Faculty Name | Role | Phone | + +------+ + | aNtalee Andersen NP | PCP | | + [...] | Frandy Simons DO | [address] | | | | | of skin | [address] | [place], | | | | | sensation | [address] | [place] | | | | | Arthrodesis | [place], [place] | [address] | | | | | status Left | [address] | Phone: | | | | | leg | Phone: | [phone] | | | | | weakness | [phone] | Fax: | | | | | Procedures | Fax: | [phone] | | | | | MRI Lumbar | [phone] | | | | | | Spine [...] | Frandy Simons DO | [address] | | | | | of skin | [address] | [place], | | | | | sensation | [address] | [place] | | | | | Arthrodesis | [place] | [address] | | | | | status Left | [address] | Phone: | | | | | leg | Phone: | [phone] | | | | | weakness | [phone] | Fax: | | | | | Procedures | Fax: | [phone] | | | | | MRI Lumbar | [phone] | | | | | | Spine wo | | | | | | | Contrast | | | +--------+--------+ + + + + Encounter Details +--------+ + + + + | Date | Type | Department | Care Team | Description | +--------+ + + + + | 08/19/ | Hospital | [facility] | Frandy Teresa, | Status post lumbar | | 2013 | Encounter | [facility] MRI [address] | DO [address] | spinal fusion; Left | | | | [address] [place], | [address] [place] | leg numbness; Left | | | | [place] [address] | [address] | leg weakness | | | | [phone] | | | +--------+ + + + [...] + + + +---------+ + + | [place]-3 Fatty | Take 1,000 mg by | [...] CANTU | | | | | | [place] [address] | | | | | | [phone] | | | | | | | | +--------+ + + + + | 08/28/ | Office | Cardiology | Dora De La Torre | | | 2019 | Visit | | [address] | | | | | | [address] | | | | | | [place] [address] | | | | | | [phone] | | | | | | | [...] the round structure with high T1 and I8cfdwgu in the right L3 vertebral | | [...] + | MISCELLANEOUS LAB | | | [phone] | + +---------+ + + | MISCELANIOUS LAB | | | [phone] | + +---------+ + + documented in [...]
--- OUTSIDE RECORDS SUMMARY | ~2020-05-13 | XMS | Encounter Summary ---
Demographics + + + | Address | [address] | | | [place] [address] | + + + | Home Phone [...] [place] | | | | | [address] | | + + + + + Care Team Providers + +------+ + | Care Sofa Inspector Name | Role | Phone | [...] + + | 11/25/ | Telephone | [facility] | Frandy Teresa, | Medication Refill | | 2014 | | NEUROSURGERY [address] | DO [address] | Assistance | | | | [facility] | [address] [place], [place] | | | | | [place], [place] | [id number] | | | | | [address] | | | | | | [phone] | | | +--------+ + + + [...] get a refill of her pain medication Chinquapin 10-325 mg. I l et her know we are beyond the 90 days after her surgery and refills need to come from her [facility] provider. She requests us to [...] CANTU | | | | | | [place] [address] | | | | | | [phone] | | | | | | | | +--------+ + + + + | 08/28/ | Office | Cardiology | Dora De La Torre | | | 2019 | Visit | | [address] | | | | | | [address] | | | | | | [place] [address] | | | | | | [phone] | | | | | | | | +--------+ + + + + documented as of this encounter Visit Diagnoses Not on filedocumented in this encounter"
--- OUTSIDE RECORDS SUMMARY | ~2020-05-13 | XMS | Encounter Summary ---
Demographics + + + | Address | [address] | | | [place] [address] | + + + | Home Phone [...] [place] | | | | | [address] | | + + + + + Care Team Providers + +------+ + | Care Imaging Nurse Name | Role | Phone | [...] | | | | | | [place] [address] | | | | | | [phone] | | | | | | | [...] in | | | | | | [place] with a | | | | | [...] | | | | | | [facility] | | | | | | Laboratory, [place], | | | | | | [place], [...] by | | | | | | chvureoqBas-Tok-D: | | | | | | Increased [...] istryMHC-1: | | | | | | JanuzpioFR01 stain | | | | | | [...] + + + + | [facility] | [address] | [place] [address] | | | PATHOLOGY | [place] | | | + + + + + documented in this encounter Visit Diagnoses Not on filedocumented in this encounter
--- OUTSIDE RECORDS SUMMARY | ~2020-05-13 | XMS | Encounter Summary ---
Demographics + + + | Address | [address] | | | [place] [address] | + + + | Home Phone [...] [place] | | | | | [address] | | + + + + + Care Team Providers + +------+ + | Care Tobacco Buyer Name | Role | Phone | [...] | SLEEP DISORDER 401 | [address] | | | | | [address] [place] | [place], [place] | | | | | [place] [address] | [address] | | | | | [phone] | | | +--------+ + + + [...] [place]ANTU | | | | | | [place] [address] | | | | | | [phone] | | | | | | | | +--------+ + + + + | 08/28/ | Office | Cardiology | Dora De La Torre | | | 2019 | Visit | | [address] | | | | | | [address] | | | | | | [place] [address] | | | | | | [phone] | | | | | | | | +--------+ + + + + documented as of this encounter Visit Diagnoses Not on filedocumented in this encounter"
--- OUTSIDE RECORDS SUMMARY | ~2020-05-13 | XMS | Encounter Summary ---
Demographics + + + | Address | [address] | | | [place] [address] | + + + | Home Phone [...] [place] | | | | | [address] | | + + + + + Care Team Providers + +------+ + | Care Office Nurse Name | Role | Phone | [...] [address] | [address] [place], [place] | Hypothyroidism; | | | | [place] | [address] | GERD; BACK PAIN, | | | | [address] | | LUMBAR, WITH | | | | [phone] | | RADICULOPATHY; | | | | [...] | | | | | [place] [address] | | | | | | [phone] | | | | | | | | +--------+ + + + + | 08/28/ | Office | Cardiology | Dora De La Torre | | | 2019 | Visit | | [address] | | | | | | [address] | | | | | | [place] [address] | | | | | | [phone] | | | | | | | [...]
--- OUTSIDE RECORDS SUMMARY | 2020-05-13 19:50 | XMS ---
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 Security Security Administrator Events No recent Security Events currently on file CRITERIA MET - 6 ED Visits in 6 Months - [facility] - Has Care Guidelines - PDMP - [facility] - 2 Visits in 30 Days CARE PROVIDERS WAYNE CAMARGO Internal Medicine 09/07/2019-Current PHONE: [phone] Kenny Palafox DO [facility] Current PHONE: [phone] Jose Ag [facility] 01/31/2019-Current PHONE: [phone] Guidelines Source: [facility] Guidelines Date: 03/13/2019 Care Coordination: Mental health services are being provided by [facility].\T\nbsp; Please contact [facility] with mental health concerns.\T\nbsp; Zuleima/Philippe Woods: \T\nbsp; Moshe: [phone]. Care History Medical/Surgical 04/29/2020 [facility] Patient requested new PCP, not happy with Dr. Camargo.\T\nbsp; [facility]2020. 04/22/2020 [facility] Patient had follow up scheduled for 04/25/[address] Camargo,but was canceled by doctor.\T\nbsp; Left voice mail for patient to reschedule follow up visit. 10/23/2019 [facility] - CHW CONTACTED JONATHAN AT [facility]- PATIENT DOES NOT MEET THE ACT TEAM REQUIREMENTS FOR SERVICES DUE TO DX. - CHW SUGGESTED TO HAVE GUARDIANSHIP REVIEWED FOR PATIENT DUE TO ONGOING MENTAL HEALTH CONCERNS AND ED VISITS. - JONATHAN STATED SHE WOULD LOOK INTO THIS WITH PATIENT CURRENT CASE MANAGEMENT TEAM. - JONATHAN CAN BE CONTACTED AT [phone]. E.D. VISIT COUNT (12 MO.) 21 [facility]. TOTAL 21 NOTE: Visits indicate total known visits. ED/UCC VISIT TRACKING (12 MO.) 05/13/2020 19:47 JA[facility] [place] TYPE: Emergency COMPLAINT: - MEDICAL CLEARANCE 05/06/2020 06:05 [facility] [place] TYPE: Emergency COMPLAINT: - RAPID HEARTRATE DIAGNOSES: - Gastro-esophageal reflux disease without esophagitis - correction (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 of 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 - Allergy status to sulfonamides status - Essential (primary) hypertension - Allergy status to other drugs, medicaments and biological sub - Type 2 diabetes mellitus without complications - data sciences director (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 - Palpitations - Old myocardial infarction - Other geological science 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 05/03/2020 19:00 [facility] [place] TYPE: Emergency COMPLAINT: - RAPID HEART RATE DIAGNOSES: - Allergy status to other drugs, medicaments and biological sub - Allergy status to sulfonamides status - Old myocardial infarction - Gastro-esophageal reflux disease without esophagitis - Essential (primary) hypertension - data sciences director (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 of 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 - Type 2 diabetes mellitus with hyperglycemia - data sciences director (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 - Palpitations - Other retirement (current) drug therapy 04/28/2020 18:43 JAEL Ban[facility] [place] TYPE: Emergency COMPLAINT: - MEDICAL CLEARANCE DIAGNOSES: - Gastro-esophageal reflux disease without esophagitis - Allergy status to other drugs, medicaments and biological sub - Essential (primary) hypertension - Allergy status to sulfonamides status - Type 2 diabetes mellitus without complications - Other geological science 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 - Hallucinations, unspecified - [...] Allergy status to sulfonamides status - Other retirement (current) drug therapy - Abrasion, left knee, [...] Gastro-esophageal reflux disease without esophagitis - Other geological science 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 - Delusional disorders 10/22/2019 16:37 JAEL Banuelos [place] TYPE: Emergency COMPLAINT: - MEDICAL CLEARANCE DIAGNOSES: - Type 2 diabetes mellitus without complications - Gastro-esophageal reflux disease without esophagitis - Old myocardial infarction - Other geological science 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 - Essential (primary) hypertension - Allergy status to sulfonamides status - Allergy status to other drugs, medicaments and biological sub - Encounter for other general examination 10/20/2019 20:02 JAEL [facility] [place] TYPE: Emergency COMPLAINT: - MEDICAL CLEARANCE DIAGNOSES: - Gastro-esophageal reflux disease without esophagitis - Type 2 diabetes mellitus without complications - Encounter for other general examination - Other retirement (current) drug therapy - Old myocardial infarction [...] ischemic attack (TIA), and cere - Other retirement (current) drug therapy - Old myocardial infarction - Essential (primary) hypertension - Type 2 diabetes mellitus with hyperglycemia 10/11/2019 10:06 JA[facility] TYPE: Emergency COMPLAINT: - MEDICAL CLEARANCE DIAGNOSES: - Essential (primary) hypertension - Delusional disorders - Old myocardial infarction - Delusional disorders - Allergy status to sulfonamides status - Other retirement (current) drug therapy - Schizoaffective disorder, unspecified 09/28/2019 13:19 JA[facility] [place] TYPE: Emergency COMPLAINT: - MEDICAL CLEARANCE DIAGNOSES: - Type 2 diabetes mellitus without complications - Allergy status to other drugs, medicaments and biological sub - Old myocardial infarction - Other retirement (current) drug therapy - Allergy status to sulfonamides status - Gastro-esophageal reflux disease without esophagitis - Essential (primary) hypertension - Suicidal ideations - Encounter for other administrative examinations 09/26/2019 10:06 [facility] [place] TYPE: Emergency COMPLAINT: - MEDICAL CLEARANCE DIAGNOSES: - Other geological science 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 - Personal history of transient ischemic attack (TIA), and cere - Gastro-esophageal reflux disease without esophagitis - Allergy status to sulfonamides status - Old myocardial infarction - Schizoaffective disorder, unspecified - Allergy status to other drugs, medicaments and biological sub - Essential (primary) hypertension - data sciences director (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 09/25/2019 13:35 JA[facility] Ban[facility] [place] TYPE: Emergency COMPLAINT: - HEARING VOICES DIAGNOSES: - Type 2 diabetes mellitus without complications - Personal history of transient ischemic attack (TIA), and cere - Gastro-esophageal reflux disease without esophagitis - Schizoaffective disorder, unspecified - Suicidal ideations - correction (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 - Old myocardial infarction - Allergy status to sulfonamides status - Essential (primary) hypertension - Other retirement (current) drug therapy - Allergy status to other drugs, medicaments and biological sub 09/18/2019 13:53 JAEL [facility] [place] TYPE: Emergency COMPLAINT: - MEDICAL CLEARANCE DIAGNOSES: - Type 2 diabetes mellitus without complications - Schizoaffective disorder, unspecified - Suicidal ideations - Allergy status to other drugs, medicaments and biological sub - Gastro-esophageal reflux disease without esophagitis - Old myocardial infarction - correction (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 - Essential (primary) hypertension - Rash and other nonspecific skin eruption - Allergy status to sulfonamides status - Other retirement (current) drug therapy 09/18/2019 10:33 JA[facility] [place] TYPE: Emergency COMPLAINT: - SUICIDAL THOUGHTS, HEARING VOICES DIAGNOSES: - Disorder of urea cycle metabolism, unspecified - Other retirement (current) drug therapy - Schizoaffective disorder, unspecified - Essential (primary) hypertension - Type 2 diabetes mellitus without complications - Gastro-esophageal reflux disease without esophagitis - Old myocardial infarction - Allergy status to sulfonamides status - Allergy status to other drugs, medicaments and biological sub - data sciences director (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 09/06/2019 11:40 JA[facility] [place] TYPE: Emergency COMPLAINT: - MEDICAL CLEARANCE DIAGNOSES: - Old myocardial infarction - Essential (primary) hypertension - Allergy status to sulfonamides status - Auditory hallucinations - Other geological science 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 - Allergy status to other drugs, medicaments and biological sub - Type 2 diabetes mellitus without complications - Gastro-esophageal reflux disease without esophagitis 08/15/2019 15:26 JA[facility] [place] TYPE: Emergency COMPLAINT: - DIZZINESS DIAGNOSES: - Schizoaffective disorder, unspecified - Other retirement (current) drug therapy - Type 2 diabetes [...] ischemic attack (TIA), and cere - Other retirement (current) drug therapy - Allergy status to [...] Allergy status to sulfonamides status - Other geological science 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 - Allergy status to narcotic agent status Plus 1 More Visit INPATIENT VISIT TRACKING (12 MO.) [facility] [place] [facility] COMPLAINT: - SYNCOPE DIAGNOSES: - Gastro-esophageal reflux disease without esophagitis - Contact with and (suspected) exposure to other viral communic - Type 2 diabetes mellitus with hyperglycemia - Schizoaffective disorder, unspecified - Syncope and collapse - Allergy status to other drugs, medicaments and biological sub - Paroxysmal atrial fibrillation - Other retirement (current) drug therapy - Allergy status to sulfonamides status 05/16/2019 11:50 Edilberto PINED[place] TYPE: [facility] COMPLAINT: - SCHIZOAFFECTIVE D/O DIAGNOSES: - Schizoaffective disorder, unspecified [email or web address]
== END 2020-05-13 21:47 | disposition home or self-care (01) ==
LOC: ED 19:47
DX: Z00.8 Encounter for other general examination (principal); I10 Essential (primary) hypertension; K21.9 Gastro-esophageal reflux disease without esophagitis; E11.9 Type 2 diabetes mellitus without complications; I25.2 Old myocardial infarction; Z88.2 Allergy status to sulfonamides; Z88.8 Allergy status to other drugs, medicaments and biological substances; Z79.899 Other long term (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; Z79.82 Long term (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; Z79.84 Long term (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 of 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
CPT/HCPCS: 99282

== ENCOUNTER 2020-05-21 04:14 | Emergency (ER) | payer MEDICARE ==
[~2020-05-21] VITALS: Ht 170.2 cm; Wt 90.7 kg
--- OUTSIDE RECORDS SUMMARY | ~2020-05-21 | XMS | Encounter Summary ---
Demographics + + + | Address | [address] [facility] | | | [place] [address] | + + + | Home Phone | | + + + | Preferred Language | Unknown | + + + | Marital Status | | + + + | Buddhist Affiliation | 1013 | + + + [...] [place], [place] | | | | | [address] | | + + + + + Care Team Providers + +------+ + | Care Conversion Worker Name | Role | Phone | + +------+ + PCP | Unavailable | + +------+ + Encounter Details +--------+ + + + + | Date | Type | Department | Care Team | Description | +--------+ + + + + | 04/16/ | [facility] | [facility] | Deon Gonzales | | | 2004 | Encounter | MED CTR SLEEP | MD Laure[address] | | | | | [place] [address] | [facility] | | | | | [place], [place] | [place] [address] | | | | | [address] | [phone] | | | | | [phone] | | | +--------+ + + + [...] | | | | | | [place] [address] | | | | | | [phone] | | | | | | | | +--------+ + + + + | 08/28/ | Office | Cardiology | Dora De La Torre | | | 2019 | Visit | | [address] | | | | | | [address] | | | | | | [place] [address] | | | | | | [phone] | | | | | | | | +--------+ + + + + documented as of this encounter Visit Diagnoses Not on filedocumented in this encounter"
--- OUTSIDE RECORDS SUMMARY | ~2020-05-21 | XMS | Encounter Summary ---
Demographics + + + | Address | [address] [facility] | | | [place] [address] | + + + | Home Phone | | + + + | Preferred Language | Unknown | + + + | Marital Status | | + + + | Baptist Affiliation | 1013 | + + + | Race | Unknown | + + + | Ethnic Group | Unknown | + + + Author + + + | Author | [facility] | | | and [place] | + + + | Organization | [facility] | | | and [place] | + + + | Address | Unknown | + + + | Phone | Unavailable | + + + Support + + + + + | Name | Relationship | Address | Phone | + + + + + | Araceli Sibley | ECON | [place] | | | | | [address] | | + + + + + Care Team Providers + +------+ + | Care Rn Clinical Trials Name | Role | Phone | + +------+ + | Adriano Patrick MD | PCP | | + +------+ + Reason for Visit +--------+--------+ + | Reason | Onset | Comments | | | Date | | +--------+--------+ + | Other | 07/30/ | Patient concerns | | | 2018 | | +--------+--------+ + Encounter Details +--------+ + + + + | Date | Type | Department | Care Team | Description | +--------+ + + + + | 07/30/ | Telephone | [facility] | Ashley Chávez | Other (Patient | | 2019 | | CARDIOLOGY [place], Sexual Assault Response Coordinator | mariela ) | | | | [address] | | | | | | [facility] [place] | | | | | | [address] | | | | | | [phone] | | | +--------+ + + + [...] encounter Miscellaneous Notes Telephone Encounter - Ashley Chávez Sexual Assault Response Coordinator - 07/30/2019 1:40 PM Shila norton to patient to advise of Dr. Peterson's notes. Patient stated understanding. BRODY:MANGO. el ephone Encounter - Ashley Chávez, Sexual Assault Response Coordinator - 07/30/2019 1:40 PM PDT----- Mess age from Desiree Peterson DO sent at 07/30/2019 13:22 PDT ----- Regarding: RE: Patient is worried about infection in her heart. She does not have an infection in her heart. She needs to have the event monitor placed and she needs to monitor her blood pressures at home 3 times daily, write down her numbers and bring them with her to our follow up appointment. Thanks ----- Message ----- From: Ashley Chávez Sexual Assault Response Coordinator Sent: 07/30/2019 11:47 To: Desiree Peterson DO Subject: Patient is worried about infection in her he# Patient left me a voicemail, and she was literally in tears. She says she still feels light headed, dizzy, passing out, and very tired, SOB, and she was wondering if maybe she has an infection in her heart? She said that she got bitten by a brown recluse spider about a year ago, and she was deathl y ill in the hospital. She says she never really recovered from this, and she was wondering if maybe there is an i nfection in her heart from the venom? I don't know... I haven't called her back yet because that doesn't seem very likely, but mendy mena? Do you think she could have an infection from spider venom this long after the bite? Please advise. Thank you! doc umented in this encounter Plan of Treatment +--------+ + + + + | Date | Type | Specialty | Care Team | Description | +--------+ + + + + | 05/29/ | Procedure | Cardiology | BrittDora | | | 2019 | visit | | [address] | | | | | | [address] | | | | | | [place] [address] | | | | | | [phone] | | | | | | | | +--------+ + + + + | 08/28/ | Office | Cardiology | Dora De La Torre | | | 2019 | Visit | | [address] | | | | | | [address] | | | | | | [place] [address] | | | | | | [phone] | | | | | | | | +--------+ + + + + documented as of this encounter Visit Diagnoses Not on filedocumented in this encounter"
--- OUTSIDE RECORDS SUMMARY | ~2020-05-21 | XMS | Encounter Summary ---
Demographics + + + | Address | [address] [facility] [address] | | | [place] [address] | + + + | Home Phone [...] [place], [place] | | | | | [address] | | + + + + + Care Team Providers + +------+ + | Care Fractionation Supervisor Name | Role | Phone | + +------+ + PCP | Unavailable | + +------+ + Encounter Details +--------+ + + + + | Date | Type | Department | Care Team | Description | +--------+ + + + + | 02/02/ | Hospital | [facility] | | | | 1997 | Encounter | MED CTR EMERGENCY | | | | | | [address] | | | | | | [place] | | | | | | [address] | | | | | | [phone] | | | +--------+ + + + [...] | | 2019 | visit | | [address] | | | | | | [address] | | | | | | [place] [address] | | | | | | [phone] | | | | | | | | +--------+ + + + + | 08/28/ | Office | Cardiology | Dora De La Torre | | | 2020 | Visit | | [address] | | | | | | [address] | | | | | | [place] [address] | | | | | | [phone] | | | | | | | | +--------+ + + + + documented as of this encounter Visit Diagnoses Not on filedocumented in this encounter"
--- OUTSIDE RECORDS SUMMARY | ~2020-05-21 | XMS | Encounter Summary ---
Demographics + + + | Address | [address] [facility] | | | [place] [address] | + + + | Home Phone | | + + + | Preferred Language | Unknown | + + + | Marital Status | | + + + | Protestant Affiliation | 1013 | + + + | Race | Unknown | + + + | Ethnic Group | Unknown | + + + Author + + + | Author | [facility] | | | and [place] | + + + | Organization | [facility] | | | and [place] | + + + | Address | Unknown | + + + | Phone | Unavailable | + + + Support + + + + + | Name | Relationship | Address | Phone | + + + + + | Araceli Sibley | ECON | [place] | | | | | [address] | | + + + + + Care Team Providers + +------+ + | Care Production Sorter Name | Role | Phone | [...] + + | 08/20/ | Documentati | [facility] | Katharine Moncada, | Other (urgent | | 2019 | on | CARDIOLOGY [place] | Technologist | report) | | | | [address] | | | | | | [place] | | | | | | [address] | | | | | | [phone] | | | +--------+ + + + [...] | | | | | [place] [address] | | | | | | [phone] | | | | | | | | +--------+ + + + + | 08/28/ | Office | Cardiology | Dora De La Torre | | | 2020 | Visit | | [address] | | | | | | [address] | | | | | | [place] [address] | | | | | | [phone] | | | | | | | | +--------+ + + + + documented as of this encounter Visit Diagnoses Not on filedocumented in this encounter"
--- OUTSIDE RECORDS SUMMARY | ~2020-05-21 | XMS | Encounter Summary ---
Demographics + + + | Address | [address] [facility] [address] | | | [place] [address] | + + + | Home Phone | | + + + | Preferred Language | Unknown | + + + | Marital Status | | + + + | Latter Day Affiliation | 1013 | + + + [...] [place], [place] | | | | | [address] | | + + + + + Care Team Providers + +------+ + | Care Refining Engineer Name | Role | Phone | + +------+ + PCP | Unavailable | + +------+ + Encounter Details +--------+ + + + + | Date | Type | Department | Care Team | Description | +--------+ + + + + | 04/16/ | Hospital | [facility] | | | | 1997 | Encounter | MED CTR XRAY [address] | | | | | | [address] | | | | | | [place] [address] | | | | | | [phone] | | | +--------+ + + + [...] | 05/29/ | Procedure | Cardiology | StefanielarryDora | | | 2019 | visit | | [address] | | | | | | [address] | | | | | | [place] [address] | | | | | | [phone] | | | | | | | | +--------+ + + + + | 08/28/ | Office | Cardiology | Dora De La Torre | | | 2019 | Visit | | [address] | | | | | | [address] | | | | | | [place] [address] | | | | | | [phone] | | | | | | | | +--------+ + + + + documented as of this encounter Visit Diagnoses Not on filedocumented in this encounter"
--- OUTSIDE RECORDS SUMMARY | ~2020-05-21 | XMS | Encounter Summary ---
Demographics + + + | Address | [address] [facility] | | | [place] [address] | + + + | Home Phone [...] [place], [place] | | | | | [address] | | + + + + + Care Team Providers + +------+ + | Care Integration Technician Name | Role | Phone | + +------+ + PCP | Unavailable | + +------+ + Encounter Details +--------+ + + + + | Date | Type | Department | Care Team | Description | +--------+ + + + + | 06/19/ | Hospital | [facility] | | | | 1991 - | Encounter | MED CTR GENERIC PSY | | | | | | CONV DEPT [address] | | | | 06/24/ | | [address], | | | | 1991 | | [place] [address] | | | | | | [phone] | | | +--------+ + + + [...] [address] | | | | | | [place] [address] | | | | | | [phone] | | | | | | | | +--------+ + + + + | 08/28/ | Office | Cardiology | Dora De La Torre | | | 2019 | Visit | | [address] | | | | | | [address] | | | | | | [place] [address] | | | | | | [phone] | | | | | | | | +--------+ + + + + documented as of this encounter Visit Diagnoses Not on filedocumented in this encounter"
--- OUTSIDE RECORDS SUMMARY | ~2020-05-21 | XMS | Encounter Summary ---
Demographics + + + | Address | [address] [facility] [address] | | | [place] [address] | + + + | Home Phone | | + + + | Preferred Language | Unknown | + + + | Marital Status | | + + + | Baptism Affiliation | 1013 | + + + | Race | Unknown | + + + | Ethnic Group | Unknown | + + + Author + + + | Author | [facility] | | | and [place] | + + + | Organization | [facility] | | | and [place] | + + + | Address | Unknown | + + + | Phone | Unavailable | + + + Support + + + + + | Name | Relationship | Address | Phone | + + + + + | Araceli Sibley | ECON | [place] | | | | | [address] | | + + + + + Care Team Providers + +------+ + | Care Resistor Coater Name | Role | Phone | + [...] | Frandy Simons DO | [address] | | | | | of skin | [address] | [place], | | | | | sensation | [address] | [place] | | | | | Arthrodesis | [place], [place] | [address] | | | | | status Left | [id number] | Phone: | | | | | leg | Phone: | [phone] | | | | | weakness | [phone] | Fax: | | | | | Procedures | Fax: | [phone] | | | | | MRI Lumbar | [phone] | | | | | | Spine wo | | | | | | | Contrast | | | +--------+--------+ + + + + Reason for Visit +--------+--------+ + | Reason | Onset | Comments | | | Date | | +--------+--------+ + | Other | 08/12/ | | | | 2013 | | [...] [address] | [address] [place], [place] | | | | | [place], [place] | [id number] | | | | | [address] | | | | | | [phone] | | | +--------+ + + + [...] documented as of this encounter Miscellaneous Notes Addendum Note - Shayne Aragon Cert MA - 08/13/2014 8:55 AM PDT Addended by: SHAYNE ARAGON on: 08/13/2014 08:55 Modules accepted: Orders elephone Mino ramirez - Shayne Aragon Cert MA - 08/13/2014 8:55 AM PDTI scheduled samson for her MRI here at [facility] on 08/19. SHAYNE ARAGON eleFrandy Diaz DO - 08/12/2014 4:23 PM PDTOK. Please have her undergo MRI of the lumb ar spine without contrast and call when it's done for me to review. Thanks. elephone Portiao irma - Shayne Aragon Cert MA - 08/12/2014 8:39 AM PDTPatricia called today to let Dr. Kemal travis know that she completed the Medrol Dospak that was prescribed to her last week for the c ontinued numbness in her left leg and foot and this did not help the numbness. She states n ow her right foot is more numb than it was before. She wanted to see what she should do nex t. She does have some weakness still in her left leg, but this is not worse than it was bef ore surgery. She is S/P L5-S1 TLIF on 07/02/14. Her next office visit is on 09/27/14 for her 3m post op. Please advise. SHAYNE ARAGON documented in this encounter Plan [...] [address] | | | | | | [place] [address] | | | | | | [phone] | | | | | | | | +--------+ + + + + | 08/28/ | Office | Cardiology | Dora De La Torre | | | 2020 | Visit | | [address] | | | | | | [address] | | | | | | [place] [address] | | | | | | [phone] | | | | | | | [...] the round structure with high T1 and O5ylaztw in the right L3 vertebral | | [...] + | MISCELLANEOUS LAB | | | [phone] | + +---------+ + + | MISCELANIOUS LAB | | | [phone] | + +---------+ + + documented in [...]
--- OUTSIDE RECORDS SUMMARY | ~2020-05-21 | XMS | Encounter Summary ---
Demographics + + + | Address | [address] [facility] [address] | | | [place] [address] | + + + | Home Phone | | + + + | Preferred Language | Unknown | + + + | Marital Status | | + + + | Rastafari Affiliation | 1013 | + + + | Race | Unknown | + + + | Ethnic Group | Unknown | + + + Author + + + | Author | [facility] | | | and [place] | + + + | Organization | [facility] | | | and [place] | + + + | Address | Unknown | + + + | Phone | Unavailable | + + + Support + + + + + | Name | Relationship | Address | Phone | + + + + + | Araceli Sibley | ECON | [place], [place] | | | | | [address] | | + + + + + Care Team Providers + +------+ + | Care Concrete Stone Fabricator Name | Role | Phone | + +------+ + PCP | Unavailable | + +------+ + Encounter Details +--------+ + + + + | Date | Type | Department | Care Team | Description | +--------+ + + + + | 12/27/ | Hospital | [facility] | | | | 1995 | Encounter | MED CTR LABORATORY | | | | | | [address] | | | | | | [place] | | | | | | [address] | | | | | | [phone] | | | +--------+ + + + [...] | | | | | [place] [address] | | | | | | [phone] | | | | | | | | +--------+ + + + + | 08/28/ | Office | Cardiology | Dora De La Torre | | | 2020 | Visit | | [address] | | | | | | [address] | | | | | | [place] [address] | | | | | | [phone] | | | | | | | | +--------+ + + + + documented as of this encounter Visit Diagnoses Not on filedocumented in this encounter"
--- OUTSIDE RECORDS SUMMARY | ~2020-05-21 | XMS | Encounter Summary ---
Demographics + + + | Address | [address] [facility] [address] | | | [place] [address] | + + + | Home Phone | | + + + | Preferred Language | Unknown | + + + | Marital Status | | + + + | Amish Affiliation | 1013 | + + + | Race | Unknown | + + + | Ethnic Group | Unknown | + + + Author + + + | Author | [facility] | | | and [place] | + + + | Organization | [facility] | | | and [place] | + + + | Address | Unknown | + + + | Phone | Unavailable | + + + Support + + + + + | Name | Relationship | Address | Phone | + + + + + | Araceli Sibley | ECON | [place] | | | | | [address] | | + + + + + Care Team Providers + +------+ + | Care Title Insurance Examiner Name | Role | Phone | + +------+ + | Basim Bolanos MD | PCP | | + +------+ + Encounter Details +--------+ + + + + | Date | Type | Department | Care Team | Description | +--------+ + + + + | 02/22/ | Abstract | [facility] [place] | [facility], | | | 2012 | | GASTROENTEROLOGY | [place] [address] | | | | | [address] | [address] | | | | | [address] [place], [place] | [place], [place] | | | | | [address] | [address] | | | | | [phone] | | | +--------+ + + + [...] | | | | | [place] [address] | | | | | | [phone] | | | | | | | | +--------+ + + + + | 08/28/ | Office | Cardiology | Dora De La Torre | | | 2019 | Visit | | [address] | | | | | | [address] | | | | | | [place] [address] | | | | | | [phone] | | | | | | | | +--------+ + + + + documented as of this encounter Visit Diagnoses Not on filedocumented in this encounter"
--- OUTSIDE RECORDS SUMMARY | ~2020-05-21 | XMS | Encounter Summary ---
Demographics + + + | Address | [address] | | | [place] [address] | + + + | Home Phone | | + + + | Preferred Language | Unknown | + + + | Marital Status | | + + + | Sabianism Affiliation | [id number] | + + + | Race | Unknown | + + + | Ethnic Group | Unknown | + + + Author + + + | Author | [facility] | | | and [place] | + + + | Organization | [facility] | | | and [place] | + + + | Address | Unknown | + + + | Phone | Unavailable | + + + Support + + + + + | Name | Relationship | Address | Phone | + + + + + | Araceli Sibley | ECON | [place] | | | | | [address] | | + + + + + Care Team Providers + +------+ + | Care Gunner Mate Name | Role | Phone | + +------+ + | Hari Samson DO | PCP | | + +------+ + Reason for Visit + + + | Reason | Comments | + + + | Follow-up | Echo/ increased heart rate and palpitations | + + + Encounter Details +--------+---------+ + + + | Date | Type | Department | Care Team | Description | +--------+---------+ + + + | 02/13/ | Office | [facility] | Dora De La Torre | History of atrial | | 2020 | Visit | [facility] [place] | [address] | fibrillation | | | | [address] | [address] [address] | (Primary Dx); New | | | | [address] | [place] [address] | onset left bundle | | | | [place] | [phone] | branch block (LBBB); | | | | [address] | | Benign essential | | | | [phone] | | HTN; History of | | | | | | hypothyroidism; | | | | | | Stress | | | | | | hyperglycemia; | | | | | | History of stroke; | | | | | | Mild hyperlipidemia; | | | | | | Sinus tachycardia | | | | | | by | | | | | | electrocardiogram; | | | | | | History of sleep | | | | | | apnea; Obesity, | | | | | | Class III, BMI | | | | | | 40-49.9 (morbid | | | | | | obesity) ([facility]) | +--------+---------+ + + + Social History [...] + + + | Blood Pressure | 136/88 | 02/14/2020 3:01 PM | | | | | PDT | | + + + + + | Pulse | 109 | 02/14/2020 3:01 PM | | | | | PDT | | + + + + + | Temperature | - | - | | + + + + + | Respiratory Rate | - | - | | + + + + + | Oxygen Saturation | 95% | 02/14/2020 3:01 PM | | | | | PDT | | + + + + + | Inhaled Oxygen | - | - | | | Concentration | | | | + + + + + | Weight | 122.3 kg (269 lb | 02/14/2020 3:01 PM | | | | 11.2 oz) | PDT | | + + + + + | Height | 170.2 cm (5' 7") | 02/14/2020 3:01 PM | | | | | PDT | | + + + + + | Body Mass Index | 42.24 | 02/14/2020 3:01 PM | | | | | PDT | | + + + + + documented in this encounter Patient Instructions Patient Instructions Dora De La Torre FNP - 02/14/2020 3:00 PM PDTYour Echo looked g ood, and I am not ordering a stress test I made changes to medications by increasing metoprolol XL 50 mg to 100 mg twice a day . Yo u will start with two 50 mg pills with Breakfast , and one 50 mg pill with dinner for on e week, and then increase to two 50 mg pills with breakfast, and two with dinner . If you have any problems with increased dose, go back to previous dose. See Dr. Petersno back in March as scheduled, documented in this encounter Progress Notes Dora De La Torre FNP - 02/14/2020 3:00 PM PDTFormatting of this note might be differe nt from the original. Date of visit: 02/15/2020 Primary Care Physician: Hari Samson DO CHIEF COMPLAINT: Chief Complaint Patient presents with Follow-up Echo/ increased heart rate and palpitations HISTORY OF PRESENT ILLNESS: Ms. Arndt is a 64 year old woman who is here today to follow up on Echo with new LBB B, and tachycardia,and palpitations. 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 Her ZII2LE1 VASC score is 4 (stroke, HTN, gender) , and Dr. Peterson did not anticoagulate he r due to low incidence of atrial fib. Dr. Peterson had previously ordered her a [...] symptoms of fatigue and shortness of breath. She previously had multiple ER visits from October 11 until October 23 for symptoms of p aranoia and hallucinations requiring mental health evaluation and intervention, and her labs from that time are detailed below, so had symptoms of racing heart and palpitations and todd e increase in dyspnea with more extreme exertion. [...] though she tests them infrequently at home. Her current and previous testing and procedures are detailed below. I had seen her last on , when her EKG performed in the clinic had shown her hea rt rate was better controlled on metoprolol XL 50 mg twice daily, but had developed a new le ft bundle branch block in the past month, and after consultation with Dr. Faye, I had ordered her an urgent echo to evaluate her wall motion, and look for any ischemic changes. I had also previously suggested she may benefit updated sleep evaluation She reports aft er she lost 160 pounds with a gastric sleeve that she was retested for sleep apnea 2 years a go, and told the results negative, but has not had CPAP for 3 years She has previously seen Dr. Garland in [place], and different sleep provider in [facility] when lived over there. She previously reported reports she has not been on any thyroid medicine for several yea rs, and thyroid function has been normal, and that her fatty liver and hyperlipidemia had al so resolved with weight loss She reports today that though she had felt better when she saw me in December, in the last 2 weeks her heart rate once again had increased, and she was having more palpitations, despite being on the same dose of metoprolol XL, and she reports that she has taken all of her medi cations as ordered and has not missed any doses, and also denies any other changes to medica tions or conditions. She reports that she had some dyspnea with palpitations, but not as pronounced as previousl y. And still having less dyspnea with exertion when climbing stairs. She denies any dizzin ess or lightheadedness, or pedal edema . She denies any signs or symptoms of stroke or TIA, or ER visits since last seen. She rep orts improved Energy for ADL, and sleeping better now that she has back on her regular psyc hiatric medications to help with insomnia and anxiety. She has applied to go back to volunteering at the local [employer], though this plan will need to be on hold with current epidemic restrictions . She reports she is a lifelong non-smoker, and denies any use of alcohol, or recreational or illicit drugs. She brought her medication bottles to the clinic today, and personally reviewed [...] production. Denies snoring, orthopnea, PND. Cardiovascular: Reports increased Palpitations, see HPI. Denies chest pain, and leg swell ing. Denies history of rheumatic fever. Denies claudication . [...] blood sugars with stress (300-500?). Hx Hypothyroidism but resolved and off medications . Denies excessive thirst or hunger. Psychiatric/Behavioral: Bipolar/Schizophrenia. Tx'd by vivit Vaccines: Current on flu vaccine: 2019 Current on pneumonia vaccine:PPSV 23 05/29/2013 Habits/Social : Denies history of smoking. Denies EtOH use. Denies recreational or illici t drug use. Exercises sporadically. Lives in [place] . Outpatient Medications Prior to Visit Medication Sig Dispense Refill albuterol 90 mcg/puff inhaler Inhale 2 puffs into the lungs every 4 (four) hours as nee ded for Wheezing. amitriptyline (ELAVIL) 100 MG tablet Take 100 mg by mouth nightly. amitriptyline (ELAVIL) 50 mg tablet Take 100 mg by mouth nightly. ARIPiprazole (ABILIFY) 10 mg tablet Take 10 mg by mouth nightly. Blood Glucose Monitoring Suppl ([employer] VERIO FLEX SYSTEM) w/Device KIT by Does not ap ply route. calcium carbonate antacid (TUMS ULTRA 1000) 1000 MG CHEW Chew and swallow 1,000 mg 4 ti mes daily as needed. clonazePAM (KLONOPIN) 0.5 mg tablet Take 0.5 mg by mouth 2 times daily. esomeprazole (NEXIUM) 20 mg capsule Take 20 mg by mouth every morning (before breakfast ). loperamide (IMODIUM A-D) 2 MG tablet Take 2 mg by mouth as needed for Diarrhea. magnesium oxide 250 MG TABS Take 250 mg by mouth 2 times daily. metoprolol succinate (TOPROL-XL) 50 mg 24 hr tablet Take 1 tablet by mouth 2 times adelfo y. 180 tablet 3 OLANZapine (ZYPREXA) 20 MG tablet Take 20 mg by mouth nightly. omeprazole (PRILOSEC) 20 mg capsule Take 20 mg by mouth 2 times daily. Potassium Gluconate 550 MG TABS Take 2 tablets by mouth Daily. Sennosides (EX-LAX) 15 MG CHEW Chew and swallow as needed. No facility-administered medications prior to visit. PHYSICAL EXAM: Wt Readings from Last 3 Encounters: 02/14/20 122.3 kg (269 lb 11.2 oz) 01/10/20 123.1 kg (271 lb 4.8 oz) 12/17/19 124.1 kg (273 lb 9.6 oz) Temp Readings from Last 3 Encounters: 01/10/20 36.8 C (98.2 F) 03/06/15 37.1 C (98.8 F) (Oral) 02/26/15 36.2 C (97.2 F) (Oral) BP Readings from Last 3 Encounters: 02/14/20 136/88 01/10/20 120/78 12/17/19 134/72 Pulse Readings from Last 3 Encounters: 02/14/20 109 01/10/20 74 12/17/19 108 GENERAL: Well developed, well nourished woman, in [...] discomfort, patient unable to walk on eriberto dmTealet. Resting EKG normal sinus rhythm, arrhythmias ventricular premature beat Angiogram: 05/24/2014: Normal coronary arteries, moderate LV diastolic dysfunction. VASCULAR TESTING AND PROCEDURES ECHO Last Echo: 02/07/2020: EF 65%. LV normal in size with mild LVH, no regional wall motion abn ormalities, abnormal septal motion consistent with left bundle branch block, normal diastoli c function. RV normal in size and function. Normal size atria. The sinus of Valsalva thro ugh ascending aorta normal caliber. IVC WNL. No pericardial or pleural effusion. Aortic v alve trileaflet, no stenosis or regurgitation. Mitral valve normal with trace MR, no stenos is. Tricuspid valve normal without significant stenosis or regurgitation. Pulmonic valve n ot well visualized. Echo: 05/14/2019: Sinus rhythm. Technically adequate study. EF 65-70%. LV normal in size and wall thickness, no regional wall motion abnormalities, normal diastolic function. RV no rmal in size and function, moderator band on RV apex. Normal size atria. Aortic valve tril eaflet, mildly thickened, no AI, mild sclerosis without stenosis. Mitral valve normal, trac e MR. Tricuspid valve normal, trace TR. No pulmonary hypertension, RVSP 27.97 mmHg. Pulmo vickie valve not well visualized, no pericardial effusion. IVC not well visualized. Aortic ro ot, ascending aorta, and aortic arch are normal [...] nonspecific ST-T wave abnormality rate 82 bpm, ME 176 ms, QRS 80 ms, QTC 446 ms tracing personally reviewed by me EK12/17/2019: Sinus tachycardia, nonspecific ST wave abnormalities, rate 105 bpm, ME 196 ms, QRS 74 ms, QTC 430 ms, tracing personally reviewed by me, and compared to EKG performed in February 2019, rate is less well-controlled EK01/10/2020 (metoprolol XL 50 mg twice daily. Normal sinus rhythm, new left bundle bran ch block Rate 74 bpm, ME 204 ms, QRS 138 ms, QTC 488 ms, tracing personally reviewed by me and Dr. Peterson. compared to EKG performed in November, new left bundle branch block, lead III has lower voltage QRS also in aVL and aVF, and improved voltage to anterior leads and rate i s better controlled. EK02/14/2020: ( metoprolol XL 50 mg BID) Sinus tachycardia, left bundle branch block. Ra te 105 bpm, ME 184 ms, QRS 144 ms, QTC 489 ms, tracing personally reviewed by me, and compar ed to EKG performed in December , rate is less well-controlled LABS Labs: 12/26/2018: ( [facility])CMP: Sodium 139, potassium 4.2, chloride 99, BUN 10, creatinine 0. 7, BNP 28. CBC: WBC 7.8, hemoglobin 14.3, hematocrit 42.7, platelets 214 Labs: 09/28/2019:( [facility]) CBC: WBC 7.8, hemoglobin 14.9, hematocrit 43.8, platelets 221. C MP: Sodium 132, potassium 4.2, chloride 95, AST 76, ALT 76, alk phos 134 Labs: 10/11/2019:( [facility]) CBC: WBC 6.7, RBC 4.97, hemoglobin 15.2, hematocrit 44.7, platel ets 200. CMP: Glucose 385, BUN 7, creatinine 0.62, GFR 97, sodium 131, potassium 4.1, chlor kelby 95, albumin 4.3, total bilirubin 0.6, AST 75, ALT 73, alk phos 144. Thyroid: TSH 4.27 Labs: 10/12/2020:( [facility]) CBC: WBC 7, RBC 4.93, hemoglobin 14.7, hematocrit 44.1, platele ts 186 normal UA CMP: Glucose 381, BUN 6, creatinine 0.63, GFR 95, sodium 133, potassium 3.8 , chloride 97, albumin 4.3, total bili 0.6, AST 62, ALT 75, alk phos 145 thyroid: TSH 3.07 Labs: 10/20/2019:( [facility]) CBC: WBC 7.1, RBC 4.93, hemoglobin 15.1, hematocrit 45.2, platel ets 204. CMP: Glucose 540, BUN 8, creatinine 0.81, GFR 71, sodium 131, potassium 4.1, chlor kelby 95, albumin 4.2, total bili 0.5, AST 54, ALT 63, alk phos 123, negative screen for all d rugs except tricyclics. Thyroid: TSH 3.39. ASSESSMENT & PLAN: She was here to follow up results of her echo which I had ordered for new left bundle br anch block, as well as increased heart rate and palpitations in the last 2 weeks. She has problems as detailed below. Her EKG performed in the clinic today is detailed above, and again showed an, and tachy cardic despite being on metoprolol XL 50 mg twice daily, which was controlling her heart rat e when I saw her in December. Her Echo performed on February 06 as detailed above and shows a normal EF of 65%, LV normal i n size with mild LVH, no regional wall motion abnormalities, but abnormal septal motion cons istent with left bundle branch block, normal diastolic function, RV normal in size and funct ion, normal size atria, and no significant valvular disease with only trace MR, and no peric ardial or pleural effusion. I reviewed the results of her EKG and Echo results in detail with her. I discussed with er that I had also reviewed her EKG and Echo with her belt operator Dr. Peterson, who was in clin ic today, who did not think she needed any stress test for further evaluation of left bundle branch block, as she was otherwise asymptomatic, but was in agreement with me that we shoul d increase her beta-kyrie for improved heart rate control. She was agreeable to this plan . For her medications today,I have increased metoprolol XL to 100 mg twice daily for ta chycardia and palpitations, and have instructed her to start with metoprolol XL 100 mg with breakfast and 50 mg with dinner for 1 week, and then into increase to 100 mg with breakfast and dinner. I have continued 50 mg dose for ease of use, and instructed her to go back to l ower dose if higher dose causes increased side effects. I have continued magnesium oxide 250 mg twice daily for palpitations, and leg cramps which she thinks has helped. I previously discussed with her that if she had more prolonged episodes of atrial fib, th at we would need to consider anticoagulation. I also discussed with her that may need upda cb evaluation for sleep apnea if she develops more atrial fibrillation, even though tested negative a few years ago after 160 lb weight loss per her report. She will follow-up with Dr. Peterson on April 03. 1. History of atrial fibrillation 2. New onset left bundle branch block (LBBB) 3. Benign essential HTN 4. History of hypothyroidism 5. Stress hyperglycemia 6. History of stroke 7. Mild hyperlipidemia 8. Sinus tachycardia by electrocardiogram 9. History of sleep apnea 10. Obesity, Class III, BMI 40-49.9 (morbid obesity) ([facility]) Orders Placed This Encounter Procedures ECG 12 lead The following portions of the patient's history [...] previous notes for continuity of care purp osHannah [facility]UC[facility] 02/15/2020 docume nted in this encounter Plan of Treatment +--------+ + + + + | Date | Type | Specialty | Care Team | Description | +--------+ + + + + | 05/29/ | Procedure | Cardiology | Dora De La Torre | | 2019 | visit | | [address] | | | | | | [address] | | | | | | [place] [address] | | | | | | [phone] | | | | | | | | +--------+ + + + + | 08/28/ | Office | Cardiology | Dora De La Torre | | | 2019 | Visit | | [address] | | | | | | [address] | | | | | | [place] [address] | | | | | | [phone] | | | | | | | | +--------+ + + + + documented as of this encounter Procedures + +--------+ + + + | Procedure Name | Priori | Date/Time | Associated Diagnosis | Comments | | | ty | | | | + +--------+ + + + | ECG 12 LEAD | Routin | 02/14/2020 | History of atrial | Results for this | | | e | 3:11 PM | fibrillation New | procedure are in the | | | | PDT | onset left bundle | results section. | | | | | branch block (LBBB) | | | | | | Benign essential | | | | | | HTN History of | | | | | | hypothyroidism | | | | | | Stress hyperglycemia | | | | | | History of stroke | | | | | | Mild hyperlipidemia | | | | | | Sinus tachycardia | | | | | | by electrocardiogram | | | | | | History of sleep | | | | | | apnea Obesity, | | | | | | Class III, BMI | | | | | | 40-49.9 (morbid | | | | | | obesity) (HCC) | | + +--------+ + + + documented in this encounter Results ECG 12 lead (02/14/2020 3:11 PM PDT) + + + + + + | Component | Value | Ref Range | Performed | Pathologist | | | | | At | Signature | + + + + + + | VENTRICULAR | 105 | BPM | [facility] | | | RATE EKG | | | | | + + + + + + | ATRIAL RATE | 105 | BPM | [facility] | | + + + + + + | P-R | 184 | ms | [facility] | | | INTERVAL | | | | | + + + + + + | QRS | 144 | ms | [facility] | | | DURATION | | | | | + + + + + + | Q-T | 370 | ms | [facility] | | | INTERVAL | | | | | + + + + + + | Q-T | 489 | ms | [facility] | | | INTERVAL | | | | | | (CORRECTED) | | | | | + + + + + + | P WAVE AXIS | 70 | degrees | [facility] | | + + + + + + | QRS AXIS | 19 | degrees | [facility] | | + + + + + + | T AXIS | 54 | degrees | [facility] | | + + + + + + | INTERPRETAT | Sinus tachycardiaLeft | | [facility] | | | ION TEXT | bundle branch | | | | | | blockAbnormal ECGWhen | | | | | | compared with ECG of | | | | | | 10-JAN-2020 10:40,No | | | | | | significant change was | | | | | | found except rate less | | | | | | well controlled | | | | | | Confirmed by GIUSEPPE | | | | | | DORA VELAZQUEZ ([id number]) on | | | | | | 02/14/2020 4:33:35 PM | | | | + + [...] | circulatory system | + + | New onset left bundle branch block (LBBB) | + + | Benign essential HTN [...] tachycardia by electrocardiogram | + + | History of sleep apnea Personal history of other specified diseases | + + | Obesity, Class III, BMI 40-49.9 (morbid obesity) (HCC) Morbid obesity | + + documented in this encounter
--- OUTSIDE RECORDS SUMMARY | ~2020-05-21 | XMS | Encounter Summary ---
Demographics + + + | Address | [address] | | | [place] [address] | + + + | Home Phone [...] [place] | | | | | [address] | | + + + + + Care Team Providers + +------+ + | Care Cryptologic Supervisor Name | Role | Phone | + +------+ + | Adriano Patrick MD | PCP | | + +------+ + Encounter Details +--------+ + + + + | Date | Type | Department | Care Team | Description | +--------+ + + + + | 05/16/ | Orders Only | [facility] | Provider, | | | 2018 | | [facility] | [address] | | | | | [address] | [address] | | | | | [address] [place], [place] | [place] [address] | | | | | [address] | | | | | | [phone] | | | +--------+ + + + [...] | | | | | [place] [address] | | | | | | [phone] | | | | | | | | +--------+ + + + + | 08/28/ | Office | Cardiology | Dora De La Torre | | | 2020 | Visit | | [address] | | | | | | [address] | | | | | | [place] [address] | | | | | | [phone] | | | | | | | | +--------+ + + + + documented as of this encounter Visit Diagnoses Not on filedocumented in this encounter"
--- OUTSIDE RECORDS SUMMARY | ~2020-05-21 | XMS | Encounter Summary ---
Demographics + + + | Address | [address] | | | [place] [address] | + + + | Home Phone [...] [place], [place] | | | | | [address] | | + + + + + Care Team Providers + +------+ + | Care Human Resource Internship Name | Role | Phone | + +------+ + PCP | Unavailable | + +------+ + Encounter Details +--------+ + + + + | Date | Type | Department | Care Team | Description | +--------+ + + + + | 01/16/ | Hospital | [facility] | | | | 2002 | Encounter | MED CTR XRAY [address] | | | | | | [address] | | | | | | [place] [address] | | | | | | [phone] | | | +--------+ + + + [...] | | | | | [place] [address] | | | | | | [phone] | | | | | | | | +--------+ + + + + | 08/28/ | Office | Cardiology | Dora De La Torre | | | 2019 | Visit | | [address] | | | | | | [address] | | | | | | [place] [address] | | | | | | [phone] | | | | | | | | +--------+ + + + + documented as of this encounter Visit Diagnoses Not on filedocumented in this encounter"
--- OUTSIDE RECORDS SUMMARY | ~2020-05-21 | XMS | Encounter Summary ---
Demographics + + + | Address | [address] [facility] [address] | | | [place] [address] | + + + | Home Phone [...] [place] | | | | | [address] | | + + + + + Care Team Providers + +------+ + | Care Thread Twister Name | Role | Phone | + [...] + + | 08/15/ | Documentati | [facility] | Katharine Moncada, | Other (urgent | | 2019 | on | CARDIOLOGY [place] | Technologist | report) | | | | [address] | | | | | | [place] | | | | | | [address] | | | | | | [phone] | | | +--------+ + + + [...] | | | | | [place] [address] | | | | | | [phone] | | | | | | | | +--------+ + + + + | 08/28/ | Office | Cardiology | Dora De La Torre | | | 2020 | Visit | | [address] | | | | | | [address] | | | | | | [place] [address] | | | | | | [phone] | | | | | | | | +--------+ + + + + documented as of this encounter Visit Diagnoses Not on filedocumented in this encounter"
--- OUTSIDE RECORDS SUMMARY | ~2020-05-21 | XMS | Encounter Summary ---
Demographics + + + | Address | [address] [facility] [address] | | | [place] [address] | + + + | Home Phone [...] [place] | | | | | [address] | | + + + + + Care Team Providers + +------+ + | Care Gas Station Operator Name | Role | Phone | + +------+ + | Natalee Andersen NP | PCP | | + +------+ + Encounter Details +--------+ + + + + | Date | Type | Department | Care Team | Description | +--------+ + + + + | 07/06/ | Hospital | [facility] | Latricia Feliciano | | | 2014 | Encounter | MED CTR ACUTE | D, [address] | | | | | PHYSICAL THERAPY | [address] [place] | | | | | [address] | [address] | | | | | [place] [address] | | | | | | [phone] | | | +--------+ + + + [...] + + + +---------+ + + | [place]-3 Fatty | Take 1,000 mg by | [...] [address] | | | | | | [place] [address] | | | | | | [phone] | | | | | | | | +--------+ + + + + | 08/28/ | Office | Cardiology | Dora De La Torre | | | 2020 | Visit | | [address] | | | | | | [address] | | | | | | [place] [address] | | | | | | [phone] | | | | | | | | +--------+ + + + + documented as of this encounter Visit Diagnoses Not on filedocumented in this encounter"
--- OUTSIDE RECORDS SUMMARY | ~2020-05-21 | XMS | Encounter Summary ---
Demographics + + + | Address | [address] [facility] | | | [place] [address] | + + + | Home Phone [...] [place] | | | | | [address] | | + + + + + Care Team Providers + +------+ + | Care Cardiovascular Invasive Specialist Name | Role | Phone | [...] | | | | | | | [address] | | | | | | | Phone: | | | | | | | [phone] | | | | | | | Fax: | | | | | | | [phone] | | +--------+ + + + + + Reason for Visit + + + | Reason | Comments | + + + | Follow-up | 4 Week PO | + + + Encounter Details +--------+---------+ + + + | Date | Type | Department | Care Team | Description | +--------+---------+ + + + | 07/25/ | Office | [facility] | Frandy Teresa, | Lumbar spondylosis | | 2013 | Visit | NEUROSURGERY [address] | DO [address] | (Primary Dx); S/P | | | | [address] | [address] [place], [place] | lumbar fusion | | | | [place], [place] | [address] | | | | | [address] | | | | | | [phone] | | | +--------+---------+ + + + [...] m the original. Frandy Teresa DO [address] [facility], [address] [place] [address] FAX: NEUROSURGERY SURGICAL FOLLOW-UP CHIEF COMPLAINT: Chief [...] Take 15 mg by mouth nightl y. [place]-3 Fatty Acids (FISH OIL CONCENTRATE) 1000 MG [...] [address] | | | | | | [place] [address] | | | | | | [phone] | | | | | | | | +--------+ + + + + | 08/28/ | Office | Cardiology | Dora De La Torre | | | 2019 | Visit | | [address] | | | | | | [address] | | | | | | [place] [address] | | | | | | [phone] | | | | | | | [...] + | MISCELLANEOUS LAB | | | [phone] | + +---------+ + + | MISCELANIOUS LAB | | | [phone] | + +---------+ + + documented in this encounter Visit Diagnoses + + | Diagnosis | + + | Lumbar spondylosis - Primary Lumbosacral spondylosis without myelopathy | + + | S/P lumbar fusion Arthrodesis status | + + documented in this encounter
--- OUTSIDE RECORDS SUMMARY | ~2020-05-21 | XMS | Encounter Summary ---
Demographics + + + | Address | [address] [facility] | | | [place] [address] | + + + | Home Phone [...] [place] | | | | | [address] | | + + + + + Care Team Providers + +------+ + | Care Medical Sales Associate Name | Role | Phone | [...] + + | 08/15/ | Documentati | [facility] | Katharine Moncada, | Other (urgent | | 2019 | on | CARDIOLOGY [place] | Technologist | report) | | | | [address] | | | | | | [place] | | | | | | [address] | | | | | | [phone] | | | +--------+ + + + [...] Progress Notes Katharine Moncada, Technologist - 08/15/2019 7:50 AM PDTReceived urgent report 08/15/19 Pt had a self triggered 08/14/19 at 12:53 100 BPM 30 day monitor was placed [...] | | | | | [place] [address] | | | | | | [phone] | | | | | | | | +--------+ + + + + | 08/28/ | Office | Cardiology | Dora De La Torre | | | 2020 | Visit | | [address] | | | | | | [address] | | | | | | [place] [address] | | | | | | [phone] | | | | | | | | +--------+ + + + + documented as of this encounter Visit Diagnoses Not on filedocumented in this encounter"
--- OUTSIDE RECORDS SUMMARY | ~2020-05-21 | XMS | Encounter Summary ---
Demographics + + + | Address | [address] [facility] | | | [place] [address] | + + + | Home Phone [...] [place] | | | | | [address] | | + + + + + [...] + + | 02/26/ | Emergency | [facility] | A[place], | CVA (cerebral | | 2015 | | MED CTR EMERGENCY | Davey Simons MD [address] | vascular accident) | | | | CENTER [address] | [address] [facility] | ([facility]) (Primary Dx) | | | | [place], [place] | [place] [address] | | | | | [address] | [phone] | | | | | [phone] | | | +--------+ + + + [...] + + + +---------+ + + | [place]-3 Fatty | Take 1,000 mg by | [...] might be differe nt from the original. [facility] Emergency Department Encounter Note [address] [place] [address] PCP:Natalee Andersen [phone] CHIEF COMPLAINT: Chief Complaint Patient presents with Facial Droop ED Room: ED07/ED07 HPI Cindy Arndt is a 59 y.o. female who presents to the Emergency Department accompanied by a friend from [place] for evaluation. The patient recently had symptoms that were diagno sed as stroke or TIA. The symptoms were of a weakness and numbness in her right arm and leg . She was hospitalized for 4 days in [place] for this. She was discharged and subsequent ly has had 2 or 3 emergency department visits in [place] for symptoms diagnosed as TIAs. These have been recurrent and worsening right arm and leg weakness and then today with some right facial drooping and drooling. She is on Aggrenox. She had a full workup in [place] including brain CT, brain MRI, and carotid [...] Laterality: N/A; Surgeon: Frandy castellanos DO; Location: [facility] MAIN OR CURRENT MEDICATIONS Discharge Medication List [...] or Severe Contraindications. Consult references such as [employer] for furthe r information. Magnesium 250 MG [...] or Severe Contraindications. Consult references such as [employer] for further information. Multiple Vitamins-Minerals (CENTRUM SILVER PO) Take 1 tablet by mouth Daily.Historical Med OLANZapine zydis (ZYPREXA ZYDIS) 15 MG disintegrating tablet Take 15 mg by mouth nightly. [place]-3 Fatty Acids (FISH OIL CONCENTRATE) 1000 MG [...] review all of her imaging studies from [facility] ED COURSE & MEDICAL DECISION MAKING Pertinent Labs & Imaging studies were reviewed along with EMS notes and [facility] record s if applicable. (See chart for details) Medications and Allergy list reviewed. Nurses note and old records were reviewed The patient was seen and examined, I was finally able to get her records from [facility] which showed a normal MRI and less [...] accident) (HCC) Follow-up Information Follow up with [facility]. Specialty: Emergency Medicine Contact information: [address] [facility] [address] Follow up with [facility]. Specialty: Emergency Medicine Contact information: [address] [facility] [address] Follow up with Natalee Andersen NP. Specialty: Family Nurse Practitioner Contact information: [address] [place] [address] Schedule an appointment as soon as possible for a visit with Baudilio Newman MD. Specialty: Neurology Contact information: [address] [facility] [address] Discharge Medication List as of 02/26/2015 15:21 Davey Varela MD 02/26/15 1732 do cumented in this encounter Miscellaneous Notes ED Triage Notes - Yesenia Monroy RN - 02/26/2015 1:11 PM PDTC/O right sided facial mahendra op and numbness to right arm and leg onset yesterday at approximately 1800. Pt was seen in [facility] by her primary care physician this morning for the same symptoms and states "they d idn't do anything for me, they didn't even examine me." History of stroke affecting right si de 02/01/15, states she has fully recovered from this. Arrives with notable right sided faci al droop, no unilateral deficits, able to ambulate without difficulty, speech clear and appr opriate. docunya galarza encounter Plan of Treatment +--------+ + + + + | Date | Type | Specialty | Care Team | Description | +--------+ + + + + | 05/29/ | Procedure | Cardiology | Dora De La Torre | | | 2019 | visit | | [address] | | | | | | [address] | | | | | | [place] [address] | | | | | | [phone] | | | | | | | | +--------+ + + + + | 08/28/ | Office | Cardiology | Dora De La Torre | | | 2019 | Visit | | [address] | | | | | | [address] | | | | | | [place] [address] | | | | | | [phone] | | | | | | | [...] mL/min/1.73m2 | [facility] | | | [place] | RATE,ESTIMATED | | MEDICAL | | | | mL/min/1.93t2Veid than | | CENTER - | | [...] 3.7 | 3.2 - 5.0 g/dL | [facility] | | | | | | [facility] | | | | | | MEDICAL | | | | | | CENTER - | | | | | | LABORATORY | | + + + + + + | Bilirubin | 0.5 | 0.1 - 1.5 mg/dL | [facility] | | | Total | | | [facility] | | [...] [address] | [place] | [phone] | | [facility] | | [address] | | | - LABORATORY | | [...] | | Cells | | | [facility] | | | | | | MEDICAL | | | | | | CENTER - | | | | | | LABORATORY | | + + + + + + | Red Blood | 4.21 | 3.70 - 5.20 | [facility] | | | Cells | | M/uL | [facility] | [...] | Neutrophils | | K/uL | [facility] | | | | | | MEDICAL | | | | | | CENTER - | | | | | | LABORATORY | | + + + + + + | Absolute | 2.40 | 0.60 - 3.20 | [facility] | | | Lymphocytes | | K/uL | [facility] | | | | | | MEDICAL | | | | | | CENTER - | | | | | | LABORATORY | | + + + + + + | Absolute | 0.60 | 0.00 - 1.00 | [facility] | | | Monocytes | | K/uL | [facility] | | | | | | MEDICAL | | | | | | CENTER - | | | | | | LABORATORY | | + + + + + + | Absolute | 0.10 | 0.00 - 0.40 | [facility] | | | Eosinophils | | K/uL | [facility] | | | | | | MEDICAL | | | | | | CENTER - | | | | | | LABORATORY | | + + + + + + | Absolute | 0.00 | 0.00 - 0.10 | [facility] | | | Basophils | | K/uL [...] [address] | [place] | [phone] | | [facility] | | [address] | | | - LABORATORY | | [...] | ---- | | | 02/26/2015 13:10 [facility] | | | Emergency -numbness/facial droop 02/26/2015 08:15 [facility] | | | [facility] 02/19/2015 | | | 10:15 [...] status 02/06/2015 10:46 | | | [facility] | | | -Generalized pain [...] ------ | | | --------- [address] | | | [facility] [address] [facility] [address] | | | [facility] 7 0 Total | | | Note: Visits indicate total known visits. Medicaid [place] Dx are the | | | number of primary diagnoses on the [facility]'s non-emergent dx list. | | | | [...]
--- OUTSIDE RECORDS SUMMARY | ~2020-05-21 | XMS | Encounter Summary ---
Demographics + + + | Address | [address] [facility] | | | [place] [address] | + + + | Home Phone [...] [place] | | | | | [address] | | + + + + + Care Team Providers + +------+ + | Care American Indian Studies Professor Name | Role | Phone | [...] | 01/02/ | Telephone | [facility] | Frandy Teresa, | Other (6m x-ray ) | | 2015 | | NEUROSURGERY [address] | DO [address] | | | | | [address] | [address] [place], [place] | | | | | [place], [place] | [id number] | | | | | [address] | | | | | | [phone] | | | +--------+ + + + [...] for review. The order was faxed to [facility] today. She will let us know when this has been completed. SHAYNE AARGON documented in this encounter Plan of Treatment [...] [address] | | | | | | [place] [address] | | | | | | [phone] | | | | | | | | +--------+ + + + + | 08/28/ | Office | Cardiology | Dora De La Torre | | | 2019 | Visit | | [address] | | | | | | [address] | | | | | | [place] [address] | | | | | | [phone] | | | | | | | | +--------+ + + + + documented as of this encounter Visit Diagnoses Not on filedocumented in this encounter"
--- OUTSIDE RECORDS SUMMARY | ~2020-05-21 | XMS | Encounter Summary ---
Demographics + + + | Address | [address] [facility] | | | [place] [address] | + + + | Home Phone [...] [place] | | | | | [address] | | + + + + + Care Team Providers + +------+ + | Care Precinct Police Lieutenant Name | Role | Phone | + [...] + + | 08/24/ | Documentati | [facility] | Katharine Moncada, | Other (urgent | | 2019 | on | CARDIOLOGY [place] | Technologist | report) | | | | [address] | | | | | | [place] | | | | | | [address] | | | | | | [phone] | | | +--------+ + + + [...] | | | | | | [address] | | | | | | [place] [address] | | | | | | [phone] | | | | | | | | +--------+ + + + + | 08/28/ | Office | Cardiology | Dora De La Torre | | | 2020 | Visit | | [address] | | | | | | [address] | | | | | | [place] [address] | | | | | | [phone] | | | | | | | | +--------+ + + + + documented as of this encounter Visit Diagnoses Not on filedocumented in this encounter"
--- OUTSIDE RECORDS SUMMARY | ~2020-05-21 | XMS | Encounter Summary ---
Demographics + + + | Address | [address] [facility] | | | [place] [address] | + + + | Home Phone [...] [place] | | | | | [address] | | + + + + + Care Team Providers + +------+ + | Care Food Service Worker Hospital Name | Role | Phone | + [...] + + | 08/13/ | Documentati | [facility] | Katharine Moncada, | Other (urgent | | 2019 | on | CARDIOLOGY [place] | Technologist | report) | | | | [address] | | | | | | [place] | | | | | | [address] | | | | | | [phone] | | | +--------+ + + + [...] | 2019 | visit | | [address]OLINE Mednez [address] | | | | | | [address] | | | | | | [place] [address] | | | | | | [phone] | | | | | | | | +--------+ + + + + | 08/28/ | Office | Cardiology | Dora De La Trore | | | 2020 | Visit | | [address] | | | | | | [address] | | | | | | [place] [address] | | | | | | [phone] | | | | | | | | +--------+ + + + + documented as of this encounter Visit Diagnoses Not on filedocumented in this encounter"
--- OUTSIDE RECORDS SUMMARY | ~2020-05-21 | XMS | Encounter Summary ---
Demographics + + + | Address | [address] [facility] [address] | | | [place] [address] | + + + | Home Phone [...] [place] | | | | | [address] | | + + + + + Care Team Providers + +------+ + | Care Architectural Designer Name | Role | Phone | [...] + + | 07/19/ | Office | [facility] | Desiree Peterson DO | Syncope, unspecified | | 2019 | Visit | CARDIOLOGY [place] | [address] | syncope type | | | | [address] | [place], [place] | (Primary Dx); | | | | [address] | [address] | Essential | | | | [place] | | hypertension; | | | | [address] | | Irregular heartbeat | | | | [phone] | | | +--------+---------+ + + + [...] Peterson DO - 07/19/2019 10:[address] [facility] Cardiology Cardiology Follow Up Note Reason for [...] rtake in exercise. She recently got a Litesprite and has been walking him more regularly. [...] by mouth daily. Blood Glucose Monitoring Suppl ([employer] VERIO FLEX SYSTEM) w/Device KIT by Does not ap ply route. budesonide-formoterol (SYMBICORT) 160-4.5 MCG/ACT inhaler Inhale 2 puffs into the lungs 2 (two) times daily. Calcium Carbonate Antacid 1000 MG tablet Take 1,000 mg by mouth 3 (three) times daily. Cholecalciferol (VITAMIN D3) 50190 units CAPS Take by mouth once a [...] | | | | | [place] [address] | | | | | | [phone] | | | | | | | | +--------+ + + + + | 08/28/ | Office | Cardiology | Dora De La Torre | | | 2020 | Visit | | [address] | | | | | | [address] | | | | | | [place] [address] | | | | | | [phone] | | | | | | | [...]
--- OUTSIDE RECORDS SUMMARY | ~2020-05-21 | XMS | Encounter Summary ---
Demographics + + + | Address | [address] [facility] | | | [place] [address] | + + + | Home Phone [...] [place], [place] | | | | | [address] | | + + + + + Care Team Providers + +------+ + | Care Railroad Track Inspector Name | Role | Phone | + +------+ + PCP | Unavailable | + +------+ + Encounter Details +--------+ + + + + | Date | Type | Department | Care Team | Description | +--------+ + + + + | 06/30/ | Hospital | [facility] | | | | 2000 | Encounter | MED CTR EMERGENCY | | | | | | [address] | | | | | | [place] | | | | | | [address] | | | | | | [phone] | | | +--------+ + + + [...] | | | | | [place] [address] | | | | | | [phone] | | | | | | | | +--------+ + + + + | 08/28/ | Office | Cardiology | Dora De La Torre | | | 2020 | Visit | | [address] | | | | | | [address] | | | | | | [place] [address] | | | | | | [phone] | | | | | | | | +--------+ + + + + documented as of this encounter Visit Diagnoses Not on filedocumented in this encounter"
--- OUTSIDE RECORDS SUMMARY | ~2020-05-21 | XMS | Encounter Summary ---
Demographics + + + | Address | [address] [facility] | | | [place] [address] | + + + | Home Phone [...] [place] | | | | | [address] | | + + + + + Care Team Providers + +------+ + | Care Irrigation Laborer Name | Role | Phone | [...] + | 06/12/ | Office | [facility] | Chris Nicole, | Spondylisthesis | | 2013 | Visit | NEUROSURGERY [address] | PA-C [address] | (Primary Dx); | | | | [address] | [place], [place] | Radiculopathy of | | | | [place], [place] | [address] | leg; Lumbar spine | | | | [address] | | instability; Lumbar | | | | [phone] | | spondylosis; | | | | [...] f rom the original. ZANE Castillo [address] [facility] [place], [place] [address] FAX: NEUROSURGERY HISTORY AND PHYSICAL EXAMINATION CHIEF [...] Take 15 mg by mouth nightl y. [place]-3 Fatty Acids (FISH OIL CONCENTRATE) 1000 MG [...] has no apparent deficits with short or hair and makeup designer memory. CRANIAL NERVES: II: Acuity is intact. [...] Intrinsics 5 5 Ulnar Intrinsics 5 5 Electrical Designer Drafter Strength 5 5 Hip Flexion 5 4* [...] [address] | | | | | | [place] [address] | | | | | | [phone] | | | | | | | | +--------+ + + + + | 08/28/ | Office | Cardiology | Dora De La Torre | | | 2019 | Visit | | [address] | | | | | | [address] | | | | | | [place] [address] | | | | | | [phone] | | | | | | | [...]
--- OUTSIDE RECORDS SUMMARY | ~2020-05-21 | XMS | Encounter Summary ---
Demographics + + + | Address | [address] [facility] | | | [place] [address] | + + + | Home Phone [...] [place] | | | | | [address] | | + + + + + Care Team Providers + +------+ + | Care Head Holder Name | Role | Phone | + +------+ + | Natalee Andersen NP | PCP | | + +------+ + Encounter Details +--------+ + + + + | Date | Type | Department | Care Team | Description | +--------+ + + + + | 05/02/ | Hospital | [facility] | Frandy Teresa, | Back pain | | 2014 | Encounter | MED CTR XRAY [address] | DO [address] | | | | | [place] | [address] [place] | | | | | [place] [address] | [address] | | | | | [phone] | | | +--------+ + + + [...] + + + +---------+ + + | [place]-3 Fatty | Take 1,000 mg by | [...] | | | | | [place] [address] | | | | | | [phone] | | | | | | | | +--------+ + + + + | 08/28/ | Office | Cardiology | Dora De La Torre | | | 2019 | Visit | | [address] | | | | | | [address] | | | | | | [place] [address] | | | | | | [phone] | | | | | | | [...] + | MISCELLANEOUS LAB | | | [phone] | + +---------+ + + | MISCELANIOUS LAB | | | [phone] | + +---------+ + + documented in this encounter Visit Diagnoses + + | Diagnosis | + + | Back pain Backache, unspecified | + + documented in this encounter"
--- OUTSIDE RECORDS SUMMARY | ~2020-05-21 | XMS | Encounter Summary ---
Demographics + + + | Address | [address] [facility] | | | [place] [address] | + + + | Home Phone [...] [place] | | | | | [address] | | + + + + + Care Team Providers + +------+ + | Care Paratransit Driver Name | Role | Phone | [...] + + | 03/26/ | Telephone | [facility] | Thierry Fry | Medication Prior | | 2014 | | MEDICINE [address] [place] [address] | MD Lisa [address] | Authorization | | | | [employer], | [employer] [place] | (Dexilant 60Mg) | | | | [place] [address] | [address] | | | | | [phone] | | | +--------+ + + + [...] were not received I contacted insurance ID# [id number] This has been denied. The patient must try and fail 2 of the following Omeprazole Protonix Prevacid Nexium Please advise elepho ne Encounter - Saba Acosta Cert MA - 03/26/2015 1:32 PM PDTCalled and requested a prior authorization Requested for via fax from [employer] Prior auth medication Dexilant 60MgElectronically signed by [...] | | | | | [place] [address] | | | | | | [phone] | | | | | | | | +--------+ + + + + | 08/28/ | Office | Cardiology | Dora De La Torre | | | 2020 | Visit | | [address] | | | | | | [address] | | | | | | [place] [address] | | | | | | [phone] | | | | | | | | +--------+ + + + + documented as of this encounter Visit Diagnoses Not on filedocumented in this encounter"
--- OUTSIDE RECORDS SUMMARY | ~2020-05-21 | XMS | Encounter Summary ---
Demographics + + + | Address | [address] [facility] | | | [place] [address] | + + + | Home Phone [...] [place] | | | | | [address] | | + + + + + Care Team Providers + +------+ + | Care Echocardiologist Name | Role | Phone | + [...] + + | 05/19/ | Telephone | [facility] | Britt Doar | Other (Cancel | | 2020 | | CARDIOLOGY [place] | [address] | appointment) | | | | [address] | [address] | | | | | [address] | [place] [address] | | | | | [place], [place] | [phone] | | | | | [address] | | | | | | [phone] | | | +--------+ + + + [...] - 05/19/2020 10:42 AM PDTCalled patient to [facility] her hospital follow up visit with Dora Mendez as it was for psychiatric reasons and not hea rt related. Dora Mendez will follow up with patient after she has her monitor put on. Marisa onically signed by Cindy Nicholas CMA at 05/19/2020 10:46 AM PDTdocumented in this encount er Plan of Treatment +--------+ + + + + | Date | Type | Specialty | Care Team | Description | +--------+ + + + + | 05/29/ | Procedure | Cardiology | Dora De La Torre | | 2019 | visit | | [address] | | | | | | [address] | | | | | | [place] [address] | | | | | | [phone] | | | | | | | | +--------+ + + + + | 08/28/ | Office | Cardiology | StefanielarryDora | | 2019 | Visit | | [address] | | | | | | [address] | | | | | | [place] [address] | | | | | | [phone] | | | | | | | | +--------+ + + + + documented as of this encounter Visit Diagnoses Not on filedocumented in this encounter"
--- OUTSIDE RECORDS SUMMARY | ~2020-05-21 | XMS | Encounter Summary ---
Demographics + + + | Address | [address] [facility] | | | [place] [address] | + + + | Home Phone [...] [place], [place] | | | | | [address] | | + + + + + Care Team Providers + +------+ + | Care Auditing Specialist Name | Role | Phone | + +------+ + PCP | Unavailable | + +------+ + Encounter Details +--------+ + + + + | Date | Type | Department | Care Team | Description | +--------+ + + + + | 03/11/ | [facility] | [facility] | Deon Gonzales | | | 2004 | Encounter | MED CTR SLEEP | MD Laureano [address] | | | | | [place] [address] | [facility] | | | | | [place], [place] | [place] [address] | | | | | [address] | [phone] | | | | | [phone] | | | +--------+ + + + [...] | | | | | [place] [address] | | | | | | [phone] | | | | | | | | +--------+ + + + + | 08/28/ | Office | Cardiology | Dora De La Torre | | | 2019 | Visit | | [address] | | | | | | [address] | | | | | | [place] [address] | | | | | | [phone] | | | | | | | | +--------+ + + + + documented as of this encounter Visit Diagnoses Not on filedocumented in this encounter"
--- OUTSIDE RECORDS SUMMARY | ~2020-05-21 | XMS | Encounter Summary ---
Demographics + + + | Address | [address] [facility] | | | [place] [address] | + + + | Home Phone [...] [place] | | | | | [address] | | + + + + + Care Team Providers + +------+ + | Care Clinical Pharmacy Manager Name | Role | Phone | [...] + | 08/20/ | Documentati | [facility] | Katharine Moncada, | Other (urgent | | 2019 | on | CARDIOLOGY [place] | Technologist | report) | | | | [address] | | | | | | [place] | | | | | | [address] | | | | | | [phone] | | | +--------+ + + + [...] | | | | | [place] [address] | | | | | | [phone] | | | | | | | | +--------+ + + + + | 08/28/ | Office | Cardiology | Dora De La Torre | | | 2020 | Visit | | [address] | | | | | | [address] | | | | | | [place] [address] | | | | | | [phone] | | | | | | | | +--------+ + + + + documented as of this encounter Visit Diagnoses Not on filedocumented in this encounter"
--- OUTSIDE RECORDS SUMMARY | ~2020-05-21 | XMS | Encounter Summary ---
Demographics + + + | Address | [address] [facility] | | | [place] [address] | + + + | Home Phone [...] | Araceli Sibley | ECON | [place] | | | | | [address] | | + + + + + Care Team Providers + +------+ + | Care General Car Yard Supervisor Name | Role | Phone | [...] + + | 07/06/ | Emergency | [facility] | Yunior Sherman, | Chest pain, | | 2014 | | [facility] | MD [address] | unspecified chest | | | | CENTER [address] | [place], [place] | pain type (Primary | | | | [place], [place] | [address] | Dx) | | | | [address] | | | | | | [phone] | | | +--------+ + + + [...] sent through Care Everywhere.CHEST PAIN, NON CARDIAC (ITALIAN)documented in this encounter Medications at Time of [...] B COMPLEX | | | | | 0 | | PO) | | | | [...] 0 | | | | (VITAMIN D-3) [address]5260 | mouth Once a week. | | [...] | | | | | | | ([facility]) | | | | | | [...] + + + +---------+ + + | [place]-3 Fatty | Take 1,000 mg by | [...] + documented as of this encounter ED Nora Bentley RN - 07/06/2015 5:16 PM PDTPt discharged to home, pt verbalized understa nding unior Sherman MD - 07/06/2015 3:40 PM PDT eMERGENCY dEPARTMENT eNCOUnter CHIEF COMPLAINT No chief complaint on file. HPI Cindy Arndt is a 59 y.o. female who presents with chest pain. She states she's bee n having chest pain all day today. It is a pressure in her chest. She's had no symptoms sl ight nausea with it. No vomiting or diarrhea. She states she had an angiogram a year ago w hich was completely normal. She's had no fever or cough or other associated symptoms with i t. It is not exertional, it does not make her short of breath, it does not make her diaphor etic, it does not radiate, feels like her chronic chest pain. PAST MEDICAL HISTORY Past Medical History Diagnosis Date GERD [...] Neuropathy Sleep apnea Stroke (HCC) Thyroid disease Vasculitis (HCC) Myalgia and myositis, unspecified Collagen vascular disease (HCC) Arthritis Heart disease Seasonal allergies Candidiasis of mouth Angina at rest (HCC) SURGICAL HISTORY Past Surgical History Procedure Laterality Date Jorje placement tibia 2001 RIGHT Cholecystectomy 1998 Mastectomy, partial 1996 lt breast, for abcesses Hysterectomy 1991 [facility], Tonsillectomy and adenoidectomy Dilatation & curretage 1973 Gastric sleeve 2013 Lumbar laminectomy 07/02/2014 MIS L5-S1 TRANSFORAMINAL LUMBAR INTERBODY FUSION ; Laterality: N/A; Surgeon: Frandy castellanos DO; Location: [facility] MAIN OR Cardiac catherization CURRENT MEDICATIONS Previous Medications ASENAPINE (SAPHRIS) [address] 10 mg under the tongue Daily. ASPIRIN-DIPYRIDAMOLE (AGGRENOX) 25-200 MG PER 12 HR CAPSULE Take 1 capsule by mouth 2 t imes daily. ATENOLOL (TENORMIN) 25 MG TABLET Take 25 mg by mouth Daily. B COMPLEX VITAMINS (VITAMIN B COMPLEX PO) Take by mouth. CALCIUM CARBONATE ANTACID (TUMS E-X 750 PO) Take by mouth. CALCIUM CITRATE PO Take 500 mg by mouth Daily. CHOLECALCIFEROL (VITAMIN D-3) 94420 UNITS CAPS Take 50,000 Units by mouth Once a week. CYANOCOBALAMIN (VITAMIN B-12 PO) Take by mouth. DEXLANSOPRAZOLE (DEXILANT) [address] CAPSULE Take 60 mg by mouth Daily. DIGESTIVE ENZYMES (PAPAYA ENZYME) CHEW Take by mouth. DIVALPROEX (DEPAKOTE) 250 MG EC TABLET Take 250 mg by mouth. FLUOCINONIDE (LIDEX) 0.05 % OINTMENT Apply to affected area twice daily as needed FUROSEMIDE (LASIX) 40 MG TABLET Take 40 mg by mouth Daily. GABAPENTIN (NEURONTIN) 300 MG CAPSULE Take 300 mg by mouth 3 times daily. HYDROCHLOROTHIAZIDE 25 MG TABLET Take 25 mg by mouth Daily. HYDROCODONE-ACETAMINOPHEN (NORCO) 10-325 MG PER TABLET Take 1-2 tablets by mouth every 4 hours as needed for Pain. LEVOTHYROXINE (SYNTHROID, LEVOTHROID) 112 MCG TABLET Take 112 mcg by mouth every mornin g (before breakfast). LISINOPRIL (PRINIVIL, ZESTRIL) 10 MG TABLET Take 1 tablet by mouth Daily. MAGNESIUM 250 MG TABS Take 2 tablets by mouth nightly. MELATONIN [address] 5 mg under the tongue nightly. METFORMIN (GLUCOPHAGE-XR) 500 MG 24 HR TABLET Take 1 tablet by mouth daily (with breakf ast). MULTIPLE VITAMINS-MINERALS (CENTRUM SILVER PO) Take 1 tablet by mouth Daily. NAPROXEN SODIUM (ALEVE) 220 MG TABLET Take 220 mg by mouth every 12 hours. OLANZAPINE (ZYPREXA) 10 MG TABLET Take 10 mg by mouth nightly. OMEGA-3 FATTY ACIDS (FISH OIL CONCENTRATE) 1000 MG CAPS Take 1,000 mg by mouth 2 times daily. OXYCODONE-ACETAMINOPHEN (PERCOCET) 10-325 MG PER TABLET Take 1 tablet by mouth every 6 hours as needed for Pain. PAROXETINE (PAXIL) 20 MG TABLET Take 20 mg by mouth Daily. TOCOPHEROL (VITAMIN E) 400 UNITS CAPSULE Take 400 Units by mouth 2 times daily. TRIAMCINOLONE ACETONIDE (NASACORT AQ NA) by Nasal route. UNCODED MEDICATION Diagnosis: Obstructive Sleep Apnea ICD-9: 327.23 Length of Need: 99 Months ALLERGIES Allergies Allergen Reactions Erythromycin Nausea And Vomiting Fluoxetine Other (See Comments) "mind racing" Haloperidol Other (See Comments) "mind racing" Prochlorperazine Maleate Other (See Comments) Skin crawling/agitation Promethazine Hcl Other (See Comments) Skin crawling/agitation Topamax Other (See Comments) "mind racing and dellusions" Demerol Nausea And Vomiting Duloxetine Muscle weakness, profuse sweating Sulfa Antibiotics Rash FAMILY HISTORY Family History Problem Relation Age of Onset High blood pressure Mother High blood pressure Father Cancer Sister cervical Arthritis Mother Thyroid disease Mother Heart disease Mother Other (See Comment) Father lung disease Mental illness Father Diabetes Father Stroke Father Heart disease Father SOCIAL HISTORY History Social History Marital Status: Spouse Name: N/A Number of Children: 2 Years of Education: 13 Occupational History DISABLED Social History Main Topics Smoking status: Never Smoker Smokeless tobacco: Never Used Alcohol Use: No Drug Use: No Sexual Activity: No Other Topics Concern None Social History Narrative REVIEW OF SYSTEMS All systems reviewed and negative except as noted on HPI and/or limited by patient conditio n PHYSICAL EXAM VITAL SIGNS: Constitutional: Well developed, Well nourished, No acute distress, Non-toxic appearance. HENT: Normocephalic, Atraumatic, Oropharynx moist, No oral exudates, Nose normal. Neck- No rmal range of motion, No tenderness, Supple, No stridor. Eyes: PERRL, EOMI, Conjunctiva normal, No discharge. Respiratory: Normal breath sounds, No respiratory distress, No wheezing, No chest tenderne ss. Cardiovascular: Normal heart rate, Normal rhythm, No murmurs, No rubs, No gallops. GI: nondistended, nontender : not done Musculoskeletal: Intact distal pulses, No edema ,Integument: Warm, Dry, No erythema, No rash. EKG Sinus tachycardia with a rate of 110 RADIOLOGY Chest Xray ED COURSE & MEDICAL DECISION MAKING Last Set of Vital Signs: Pertinent Labs, Nurses Note, & Imaging studies reviewed. (See chart for details) This is a 59-year-old female who had some chest pain. She was recently [facility] from [facility]. She's had more than 24 hours of symptoms with a normal troponin and a normal EKG. She also has a normal coronary cath from less than a year ago. I do not believe her symptoms are cardiac. They're nonexertional, do not radiate, do not cut shortness of breath or nausea. She has no evidence of a PE, her d-dimer is normal. I suspect a component of h er chest pain is anxiety. I did offer to call crisis for her but she refused. She is disch arged home to follow-up with cardiology for further risk stratification. FINAL IMPRESSION Chest pain of unclear etiology LABS FROM THIS VISIT OR MOST RECENT ER VISIT: Results for orders placed or performed during the hospital encounter of 07/06/15 ECG 12 lead Result Value Ref Range INTERPRETATION TEXT Not Confirmed Yunior Sherman MD 07/06/15 1703 document ed in this encounter Plan of Treatment +--------+ [...] [address] | | | | | | [place] [address] | | | | | | [phone] | | | | | | | | +--------+ + + + + | 08/28/ | Office | Cardiology | Dora De La Torre | | | 2019 | Visit | | [address] | | | | | | [address] | | | | | | [place] [address] | | | | | | [phone] | | | | | | | [...] | | [employer] | | | [facility] | | [...] [address] | [place] | [phone] | | [facility] | | [address] | | | - LABORATORY | | [...] Quantitativ | quantitative D-Dimer | | [facility] | | | e | assay has [...] + | [facility] | [address] | [place] | [phone] | | [facility] | | [address] | | | - LABORATORY | | [...] | | Ranges:0.00-0.06 = | | [facility] | | | | NORMAL>0.06 = | [...] | | | | | | [employer] | | | | | [...] + | [facility] | [address] | [place] | [phone] | | [facility] | | [address] | | | - LABORATORY | | [...] mL/min/1.73m2 | [facility] | | | [employer] | RATE,ESTIMATED | | MEDICAL | | | | mL/min/1.49w6Kqmu than | | CENTER - | | [...] [address] | [place] | [phone] | | [facility] | | [address] | | | - LABORATORY | | | | + + + + + CBC no Differential (07/06/2015 3:45 PM PDT) + +-------+ + + + | Component | Value | Ref Range | Performed | Pathologist | | | | | At | Signature | + +-------+ + + + | White Blood | 8.1 | 4.0 - 11.0 K/uL | [facility] | | | Cells | | | [facility] | | | | | | MEDICAL | | | | | | CENTER - | | | | | | LABORATORY | | + +-------+ + + + | Red Blood | 4.88 | 3.70 - 5.20 | [...] + | [facility] | [address] | [place] | [phone] | | [facility] | | [address] | | | - LABORATORY | | [...] | | | | | | MD MANSI, LACEY ([id number]) | | | | | | on [...]
--- OUTSIDE RECORDS SUMMARY | ~2020-05-21 | XMS | Encounter Summary ---
Demographics + + + | Address | [address] [facility] [address] | | | [place] [address] | + + + | Home Phone [...] [place] | | | | | [address] | | + + + + + Care Team Providers + +------+ + | Care School Nurse Name | Role | Phone | [...] | Telephone | [facility] [place] | [facility], | [facility] | | 2012 | | GASTROENTEROLOGY | [place] Thomas [address] | | | | | [address] [place] | [address] | | | | | [address] [place], [place] | [place], [place] | | | | | [address] | [address] | | | | | [phone] | | | +--------+ + + + [...] [address] | | | | | | [place] [address] | | | | | | [phone] | | | | | | | | +--------+ + + + + | 08/28/ | Office | Cardiology | Dora De La Torre | | | 2019 | Visit | | [address] | | | | | | [address] | | | | | | [place] [address] | | | | | | [phone] | | | | | | | | +--------+ + + + + documented as of this encounter Visit Diagnoses Not on filedocumented in this encounter"
--- OUTSIDE RECORDS SUMMARY | ~2020-05-21 | XMS | Encounter Summary ---
Demographics + + + | Address | [address] [facility] [address] | | | [place] [address] | + + + | Home Phone [...] [place], [place] | | | | | [address] | | + + + + + Care Team Providers + +------+ + | Care Professor Of Vegetable Science Name | Role | Phone | + +------+ + PCP | Unavailable | + +------+ + Encounter Details +--------+ + + + + | Date | Type | Department | Care Team | Description | +--------+ + + + + | 09/10/ | Hospital | [facility] | | | | 1992 | Encounter | [facility] LAB[facility] | | | | | | [address] | | | | | | [place] | | | | | | [address] | | | | | | [phone] | | | +--------+ + + + [...] | | | | | [place] [address] | | | | | | [phone] | | | | | | | | +--------+ + + + + | 08/28/ | Office | Cardiology | Dora De La Torre | | | 2020 | Visit | | [address] | | | | | | [address] | | | | | | [place] [address] | | | | | | [phone] | | | | | | | | +--------+ + + + + documented as of this encounter Visit Diagnoses Not on filedocumented in this encounter"
--- OUTSIDE RECORDS SUMMARY | ~2020-05-21 | XMS | Encounter Summary ---
Demographics + + + | Address | [address] [facility] [address] | | | [place] [address] | + + + | Home Phone [...] [place] | | | | | [address] | | + + + + + Care Team Providers + +------+ + | Care Certified Procedural Coder Name | Role | Phone | [...] | | | | | | [place] [address] | | | | | | [phone] | | | | | | | [...] in | | | | | | [place] with a | | | | | [...] [facility] | | | | | | [facility] | | | | | | Laboratory, [place], | | | | | | [place], delivered | | | | | | [...] by | | | | | | tjcfymmgXqe-Jbz-J: | | | | | | Increased [...] istryMHC-1: | | | | | | [id number] stain | | | | | | [...] + | [facility] | [address] | [place] [address] | | | PATHOLOGY | [place] | | | + + + + + documented in this encounter Visit Diagnoses Not on filedocumented in this encounter
--- OUTSIDE RECORDS SUMMARY | ~2020-05-21 | XMS | Encounter Summary ---
Demographics + + + | Address | [address] [address] [facility] | | | [place] [address] | + + + | Home Phone [...] [place], [place] | | | | | [address] | | + + + + + Care Team Providers + +------+ + | Care Investigator Vice Name | Role | Phone | + +------+ + PCP | Unavailable | + +------+ + Encounter Details +--------+ + + + + | Date | Type | Department | Care Team | Description | +--------+ + + + + | 09/23/ | Hospital | [facility] | | | | 1994 | Encounter | MED CTR LABORATORY | | | | | | [address] | | | | | | [place] | | | | | | [address] | | | | | | [phone] | | | +--------+ + + + [...] | | | | | [place] [address] | | | | | | [phone] | | | | | | | | +--------+ + + + + | 08/28/ | Office | Cardiology | Dora De La Torre | | | 2020 | Visit | | [address] | | | | | | [address] | | | | | | [place] [address] | | | | | | [phone] | | | | | | | | +--------+ + + + + documented as of this encounter Visit Diagnoses Not on filedocumented in this encounter"
--- OUTSIDE RECORDS SUMMARY | ~2020-05-21 | XMS | Encounter Summary ---
Demographics + + + | Address | [address] [facility] [address] [facility] [address] | | | [place] [address] | + + + | Home Phone [...] [place] | | | | | [address] | | + + + + + Care Team Providers + +------+ + | Care Sausage Wrapper Name | Role | Phone | + [...] + + | 03/06/ | Office | [facility] | Deon Gonzales | ROGERS (obstructive | | 2012 | Visit | SLEEP DISORDER [address] | MD [address] | sleep apnea) | | | | [address] [place] | [address] [place] | (Primary Dx); | | | | [place] [address] | [place] [address] | Sleepiness | | | | [phone] | [phone] | | | | | | | [...] differen t from the original. 03/06/13 [address] [place] Sleepiness Scale Sitting and reading 3 Watching [...] by mouth Daily., Disp: , Rfl: ; Mccleary-3 Fatty Acids (FISH OIL CONCENTRATE) 1000 MG [...] th is encounter Miscellaneous Notes Miscellaneous - [facility] - 03/06/2013 12:00 AM PDT iscellaneous - [facility] - 03/06/2013 12:00 AM PDTEle ctronically [...] [address] | | | | | | [place] [address] | | | | | | [phone] | | | | | | | | +--------+ + + + + | 08/28/ | Office | Cardiology | Dora De La Torre | | | 2019 | Visit | | [address] | | | | | | [address] | | | | | | [place] [address] | | | | | | [phone] | | | | | | | | +--------+ + + + + documented as of this encounter Visit Diagnoses + + | Diagnosis | + + | ROGERS (obstructive sleep apnea) - Primary Obstructive sleep apnea (adult) (pediatric) | + + | Sleepiness Other alteration of consciousness | + + documented in this encounter"
--- OUTSIDE RECORDS SUMMARY | ~2020-05-21 | XMS | Encounter Summary ---
Demographics + + + | Address | [address] [facility] [address] | | | [place] [address] | + + + | Home Phone [...] [place] | | | | | [address] | | + + + + + Care Team Providers + +------+ + | Care Steamfitter Apprentice Name | Role | Phone | [...] + | 12/03/ | Refill | [facility] | Frandy Teresa, | Medication Refill | | 2014 | | NEUROSURGERY [address] | DO [address] | | | | | [facility] | [address] [place], [place] | | | | | [place], [place] | [id number] | | | | | [address] | | | | | | [phone] | | | +--------+--------+ + + + [...] office and the number we have in [facility] is not correct. Art Andersen NP Chart notes faxed to [phone] along with medication list. Sent request to update contac t information in [facility] To Kathy @ [facility] Support Team documented in [...] [address] | | | | | | [place] [address] | | | | | | [phone] | | | | | | | | +--------+ + + + + | 08/28/ | Office | Cardiology | Dora De La Torre | | | 2019 | Visit | | [address] | | | | | | [address] | | | | | | [place] [address] | | | | | | [phone] | | | | | | | | +--------+ + + + + documented as of this encounter Visit Diagnoses Not on filedocumented in this encounter"
--- OUTSIDE RECORDS SUMMARY | ~2020-05-21 | XMS | Encounter Summary ---
Demographics + + + | Address | [address] [facility] | | | [place] [address] | + + + | Home Phone [...] [place], [place] | | | | | [address] | | + + + + + Care Team Providers + +------+ + | Care Dressing Room Attendant Name | Role | Phone | [...] | | | | | | [address] [facility] | | | | | | [place], [place] | | | | | | [address] | | | | | | [phone] | | | +--------+ + + + [...] | | | | | [place] [address] | | | | | | [phone] | | | | | | | | +--------+ + + + + | 08/28/ | Office | Cardiology | Dora De La Torre | | | 2020 | Visit | | [address] | | | | | | [address] | | | | | | [place] [address] | | | | | | [phone] | | | | | | | | +--------+ + + + + documented as of this encounter Visit Diagnoses Not on filedocumented in this encounter"
--- OUTSIDE RECORDS SUMMARY | ~2020-05-21 | XMS | Encounter Summary ---
Demographics + + + | Address | [address] [facility] | | | [place] [address] | + + + | Home Phone [...] [place], [place] | | | | | [address] | | + + + + + Care Team Providers + +------+ + | Care Paint Roller Covermaker Name | Role | Phone | + +------+ + PCP | Unavailable | + +------+ + Encounter Details +--------+ + + + + | Date | Type | Department | Care Team | Description | +--------+ + + + + | 02/16/ | Hospital | [facility] | | | | 1994 | Encounter | MED CTR LAB[facility]ATORY | | | | | | [address] | | | | | | [place] | | | | | | [address] | | | | | | [phone] | | | +--------+ + + + [...] | | | | | [place] [address] | | | | | | [phone] | | | | | | | | +--------+ + + + + | 08/28/ | Office | Cardiology | Dora De La Torre | | | 2020 | Visit | | [address] | | | | | | [address] | | | | | | [place] [address] | | | | | | [phone] | | | | | | | | +--------+ + + + + documented as of this encounter Visit Diagnoses Not on filedocumented in this encounter"
--- OUTSIDE RECORDS SUMMARY | ~2020-05-21 | XMS | Encounter Summary ---
Demographics + + + | Address | [address] [facility] | | | [place] [address] | + + + | Home Phone [...] [place] | | | | | [address] | | + + + + + Care Team Providers + +------+ + | Care Milled Rice Broker Name | Role | Phone | + +------+ + | Natalee Andersen NP | PCP | | + +------+ + Reason for Visit +--------+--------+ + | Reason | Onset | Comments | | | Date | | +--------+--------+ + | Pain | 07/06/ | | | | 2013 | | [...] | | | | | [address] [facility] [address] | [place] [address] | | | | | [place] | [phone] | | | | | [address] | | | | | | [phone] | | | +--------+ + + + [...] this encounter Miscellaneous Notes Telephone Encounter - Frandy Teresa DO - 07/06/2014 9:36 PM PDTThat's the call I got la st night at dinner with Dr. Otero. I filled out a Percocet prescription and faxed it to them ([facility]) this morning like I told them I would. Thank you for doing that, but it should not have been necessary. Telephone Encounter - Lincoln Cheema MD - 07/06/2014 8:59 PM PDTCalled regarding increased p ain. She was taking percocet. She was discharged to a [facility] on hydrocodone. I talked to the nurse and three pharmacists. Her physician Dr. Faye refused to assist oskar. To help this anai garcia, I took in a prescription for 36 percocet 10 to camila. She will need a new prescript ion on Tuesday. documented in this enc ounter Plan of Treatment +--------+ + + + + | Date | Type | Specialty | Care Team | Description | +--------+ + + + + | 05/29/ | Procedure | Cardiology | RoxannDora del rosario | | | 2019 | visit | | [address] | | | | | | [address] | | | | | | [place] [address] | | | | | | [phone] | | | | | | | | +--------+ + + + + | 08/28/ | Office | Cardiology | Dora De La Torre | | | 2019 | Visit | | [address] | | | | | | [address] | | | | | | [place] [address] | | | | | | [phone] | | | | | | | | +--------+ + + + + documented as of this encounter Visit Diagnoses Not on filedocumented in this encounter"
--- OUTSIDE RECORDS SUMMARY | ~2020-05-21 | XMS | Encounter Summary ---
Demographics + + + | Address | [address] [facility] [address] | | | [place] [address] | + + + | Home Phone [...] [place] | | | | | [address] | | + + + + + Care Team Providers + +------+ + | Care Thai Masseur Name | Role | Phone | + +------+ + | Thierry Fry MD | PCP | | + +------+ + Encounter Details +--------+ + + + + | Date | Type | Department | Care Team | Description | +--------+ + + + + | 03/06/ | Hospital | [facility] | Katharine Cardona PA-C | Essential | | 2015 | Encounter | MED CTR LABORATORY | [address] | hypertension | | | | [address] [place] | [place] [address] | | | | | [place], [place] | [phone] | | | | | [address] | | | | | | [phone] | | | +--------+ + + + [...] 0 | | | | (VITAMIN D-3) 04260 | mouth Once a week. | | [...] + + + +---------+ + + | Quilcene-3 Fatty | Take 1,000 mg by | 60 each | 5 | 03/09/20 | | | Acids (FISH OIL | mouth 2 times daily. | | | 15 | 9 | | CONCENTRATE) 1000 MG | | | | | | | CAPS | | | | | | + + + +---------+ + + | Quilcene-3 Fatty | Take 1,000 mg by | [...] F | | | | | | [place] [address] | | | | | | [phone] | | | | | | | | +--------+ + + + + | 08/28/ | Office | Cardiology | Isacc De La Torre | | | 2020 | Visit | | [address] | | | | | | [address] | | | | | | [place] [address] | | | | | | [phone] | | | | | | | [...] 12 | 7 - 18 mg/dL | [facility] | | | | | | [facility] | | [facility] | | | | | [facility] - | | | | | | LABORATORY | | + + + + + + | Creatinine | 0.66 | 0.60 - 1.30 | [place] | | | | | mg/dL | [facility] | | | | | | [facility] | | | | | | [facility] - | | | | | | LABORATORY | | + + + + + + | eGFR, | >60Comment: GLOMERULAR | >=60 | [place] | | | non- | FILTRATION | mL/min/1.73m2 | [facility] | | | [place] | RATE,ESTIMATED | | MEDICAL | | | | mL/min/1.07o3Ketf than | | CENTER - | | [...] + | [facility] | [address] | [place], [place] | [phone] | | [facility] | | [address] | | | - LABORATORY | | | | + + + + + documented in this encounter Visit Diagnoses + + | Diagnosis | + + | Essential hypertension Unspecified essential hypertension | + + documented in this encounter"
--- OUTSIDE RECORDS SUMMARY | ~2020-05-21 | XMS | Encounter Summary ---
Demographics + + + | Address | [address] [facility] [address] | | | [place] [address] | + + + | Home Phone | | + + + | Preferred Language | Unknown | + + + | Marital Status | Single | + + + | Hinduism Affiliation | Unknown | + + + [...] [place] | | | | | [address] | | + + + + + Care Team Providers + +------+ + | Care Swimming Pool Maintenance Name | Role | Phone | [...] | | | | | | [place], | | | | | | [place] [address] | | | | | | [phone] | | | +--------+ + + + [...] | | + +---------+ + + | [facility] DEPARTMENT OF | | | | | RADIOLOGY | | | | + +---------+ + + documented in this encounter Visit Diagnoses Not on filedocumented in this encounter"
--- OUTSIDE RECORDS SUMMARY | ~2020-05-21 | XMS | Encounter Summary ---
Demographics + + + | Address | [address] [facility] [address] | | | [place] [address] | + + + | Home Phone [...] [place] | | | | | [address] | | + + + + + Care Team Providers + +------+ + | Care Cash Register Balancer Name | Role | Phone | + [...] | | | | | Procedures | ADJUSTMENT SUPERVISOR [address] | [address] | | | | | MS OFFICE | | [address] | | | | | CONSULTATION | [address] | [place] | | | | | NEW/ESTAB | [facility], | [address] Phone: | | | | | PATIENT 60 | [place] [address] | [phone] | | | | | MIN | Phone: | Fax: | | | | | | [phone] | [phone] | | | | | | Fax: | | | | | | | [phone] | | +--------+--------+ + + + + [...] [address] | [address] [place], [place] | (Primary Dx); Lumbar | | | | [place], [place] | [id number] | stenosis; Lumbar | | | | [address] | | radicular pain; | | | | [phone] | | Lumbago | +--------+---------+ + + [...] [facility], [address] [place], [place] [id number] FAX: NEUROSURGERY HISTORY AND PHYSICAL EXAMINATION CHIEF [...] Take 15 mg by mouth nightl y. [place]-3 Fatty Acids (FISH OIL CONCENTRATE) 1000 MG [...] has no apparent deficits with short or joint terminal attack controller memory. CRANIAL NERVES: II: Acuity is intact. [...] Intrinsics 5 5 Ulnar Intrinsics 5 5 Community Leader Strength 5 5 Hip Flexion 5 4* [...] I spent 1 hour in visit with Cidny Arndt today with the majority of time spent coun selling the patient on her diagnosis, options for her care, and coordinating her care. ELECTRONICALLY SIGNED BY: Frandy Tereas DO, 05/02/2014 11:42 documented in this encounter Miscellaneous Notes Miscellaneous - ONBASE SCAN [facility] - 05/02/2014 12:00 AM PDT iscellaneous - ONBASE SCAN [facility] - 05/02/2014 12:00 AM PDTEle ctronically signed by [facility] at 05/08/2014 8:56 [...] [address] | | | | | | [place] [address] | | | | | | [phone] | | | | | | | | +--------+ + + + + | 08/28/ | Office | Cardiology | Dora De La Torre | | | 2019 | Visit | | [address] | | | | | | [address] | | | | | | [place] [address] | | | | | | [phone] | | | | | | | [...]
--- OUTSIDE RECORDS SUMMARY | ~2020-05-21 | XMS | Encounter Summary ---
Demographics + + + | Address | [address] [facility] [address] | | | [place] [address] | + + + | Home Phone [...] Author | [facility] | | | [...] [place] | | | | | [address] | | + + + + + Care Team Providers + +------+ + | Care Hemodialysis Technician Name | Role | Phone | [...] + + | 08/16/ | Documentati | [facility] | Katharine Moncada, | Other (urgent | | 2019 | on | CARDIOLOGY [place] | Technologist | report) | | | | [address] | | | | | | [place] | | | | | | [address] | | | | | | [phone] | | | +--------+ + + + [...] | | | | | [place] [address] | | | | | | [phone] | | | | | | | | +--------+ + + + + | 08/28/ | Office | Cardiology | Dora De La Torre | | | 2020 | Visit | | [address] | | | | | | [address] | | | | | | [place] [address] | | | | | | [phone] | | | | | | | | +--------+ + + + + documented as of this encounter Visit Diagnoses Not on filedocumented in this encounter"
--- OUTSIDE RECORDS SUMMARY | ~2020-05-21 | XMS | Encounter Summary ---
Demographics + + + | Address | [address] [facility] [address] | | | [place] [address] | + + + | Home Phone [...] [place] | | | | | [address] | | + + + + + Care Team Providers + +------+ + | Care Cigar Sorter Name | Role | Phone | [...] + | 05/02/ | Telephone | [facility] | Frandy Teresa, | Other | | 2013 | | NEUROSURGERY [address] | DO [address] | | | | | [address] | [address] [place], [place] | | | | | [place], [place] | [id number] | | | | | [address] | | | | | | [phone] | | | +--------+ + + + [...] Aragon Cert MA - 05/08/2014 8:25 AM PDTI called Cindy zhao in and was able to reach her. [...] just do DME for toilet seat riser sugar mahmood. Thanks. elephone Shayne Gibson Cert MA - 05/02/2014 11:57 AM PDTPatricthais was wondering if she could get a [...] | | | | | [place] [address] | | | | | | [phone] | | | | | | | | +--------+ + + + + | 08/28/ | Office | Cardiology | Dora De La Torre | | | 2019 | Visit | | [address] | | | | | | [address] | | | | | | [place] [address] | | | | | | [phone] | | | | | | | | +--------+ + + + + documented as of this encounter Visit Diagnoses Not on filedocumented in this encounter"
--- OUTSIDE RECORDS SUMMARY | ~2020-05-21 | XMS | Encounter Summary ---
Demographics + + + | Address | [address] [facility] [address] | | | [place] [address] | + + + | Home Phone [...] [place] | | | | | [address] | | + + + + + Care Team Providers + +------+ + | Care Teleprinter Name | Role | Phone | + [...] + + | 12/17/ | Office | [facility] | Dora De La Torre | History of atrial | | 2020 | Visit | CARDIOLOGY [place] | [address] | fibrillation; Benign | | | | [address] | [address] | essential HTN; | | | | [address] | [place] [address] | History of | | | | [place], [place] | [phone] | hypothyroidism; | | | | [address] | | Stress | | | | [phone] | | hyperglycemia; | | | | | | History of sleep | | | | | | apnea; History of | | | | | | stroke; Obesity, | | | | | | Class III, BMI | | | | | | 40-49.9 (morbid | | | | | | obesity) ([facility]); Mild | | | | [...] of fatigue and shortness of breath. Her [id number] VASC score is 4 (stroke, HTN, gender) , and Dr. Peterson did not anticoagulate he r due to low incidence of atrial fib. Her current and previous testing and procedures are detailed below. She was seen in the emergency room on October 11, 2019 at [facility] and presented wi th paranoia feeling that knives were chasing her , so went to the emergency room so that she could feel safe and Had [facility] evaluation and discharged home Labs performed at [...] 405 and [facility], and she was to be started on Abilify. She was seen again in the emergency room on October 19 and , [id number] for sim ilar complaints with increased delusions, [...] She has previously seen Dr. Garland in [place], and different provider in [place] when lived over there. She reports she [...] thirst or hunger. Psychiatric/Behavioral: Bipolar/Schizophrenia. Tx'd by [facility] Vaccines: Current on flu vaccine: 2019 Current on pneumonia vaccine:PPSV 23 05/29/2013 Habits/Social : Denies history of smoking. Denies EtOH use. Denies recreational or illici t drug use. Exercises sporadically. Lives in [place] . Outpatient Medications Prior to Visit Medication [...] Take by mouth. Blood Glucose Monitoring Suppl ([employer]Kios[employer] VERIO FLEX SYSTEM) w/Device KIT by Does not ap ply route. budesonide-formoterol (SYMBICORT) 160-4.5 mcg/puff inhaler Inhale 2 puffs into the lung s 2 (two) times daily. calcium carbonate antacid (TUMS ULTRA 1000) 1000 MG CHEW Chew and swallow 1,000 mg 4 ti mes daily as needed. Cholecalciferol (VITAMIN D-3) 24337 units CAPS Take 50,000 Units by mouth [...] chest discomfort, patient unable to walk on AudioName. Resting EKG normal sinus rhythm, arrhythmias ventricular [...] nonspecific ST-T wave abnormality rate 82 bpm, IL 176 ms, QRS 80 ms, QTC 446 ms tracing personally reviewed by me EK12/17/2019: Sinus tachycardia, nonspecific ST wave abnormalities, rate 105 bpm, IL 196 ms, QRS 74 ms, QTC 430 ms, tracing personally reviewed by me, and compared to EKG performed in February 2019, rate is less well-controlled LABS Labs: 12/26/2018: ( [facility])CMP: Sodium 139, potassium 4.2, chloride 99, BUN 10, creatinine 0. 7, BNP 28. CBC: WBC 7.8, hemoglobin 14.3, hematocrit 42.7, platelets 214 Labs: 09/28/2019:( [facility]) CBC: WBC 7.8, hemoglobin 14.9, hematocrit 43.8, platelets 221. C MP: Sodium 132, potassium 4.2, chloride 95, AST 76, ALT 76, alk phos 134 Labs: 10/11/2019:( [facility]) CBC: WBC 6.7, RBC 4.97, hemoglobin 15.2, hematocrit 44.7, platel ets 200. CMP: Glucose 385, BUN 7, creatinine 0.62, GFR 97, sodium 131, potassium 4.1, chlor kelby 95, albumin 4.3, total bilirubin 0.6, AST 75, ALT 73, alk phos 144. Thyroid: TSH 4.27 Labs: 10/12/2020:( [facility]) CBC: WBC 7, RBC 4.93, hemoglobin 14.7, hematocrit 44.1, platele ts 186 normal UA CMP: Glucose 381, BUN 6, creatinine 0.63, GFR 95, sodium 133, potassium 3.8 , chloride 97, albumin 4.3, total bili 0.6, AST 62, ALT 75, alk phos 145 thyroid: TSH 3.07 Labs: 10/20/2019:( [facility]) CBC: WBC 7.1, RBC 4.93, hemoglobin [...] a prescription to her local [facility] . I made no other changes to [...] continuity of care purp ose [facility] Cardiology 12/17/2019 docume nted in this encounter [...] [address] | | | | | | [place] [address] | | | | | | [phone] | | | | | | | | +--------+ + + + + | 08/28/ | Office | Cardiology | Britt Dora | | | 2019 | Visit | | [address] | | | | | | [address] | | | | | | [place] [address] | | | | | | [phone] | | | | | | | [...] | | | | | | Yesenia ([id number]) on | | | | | | [...]
--- OUTSIDE RECORDS SUMMARY | ~2020-05-21 | XMS | Encounter Summary ---
Demographics + + + | Address | [address] | | | [place] [address] | + + + | Home Phone [...] [place] | | | | | [address] | | + + + + + Care Team Providers + +------+ + | Care Hands Hanger Name | Role | Phone | + +------+ + | Hari Samson DO | PCP | | + +------+ + Reason for Referral Evaluate & Treat (Routine) + + + + + + + | Status | Reason | Specialty | Diagnoses / | Referred By | Referred To | | | | | Procedures | Contact | Contact | + + + + + + + | Authorized | Specialty | Sleep | Diagnoses | Britt, | Enrrique, | | | Services | Medicine | Left bundle | Dora Mendez, | Navdeep Shelley MD | | | Required | | branch | [facility] [address] | [address] | | | | | block | [address] | [place] | | | | | Paroxysmal | [place] [address] | [address]RI [address] | | | | | A-fib (FORMERLY [facility]) | [place], [place] | [address] | | | | | | [address] | [place], [place] | | | | | Schizoaffect | Phone: | [phone] Phone: | | | | | chris | [phone] | [phone] | | | | | disorder, | Fax: | Fax: | | | | | bipolar type | [phone] | [phone] | | | | | (HCC) | | | | | | | Rapid | | | | | | | palpitations | | | | | | | | | | | | | | Obstructive | | | | | | | sleep apnea | | | | | | | syndrome | | | | | | | Psychophysio | | | | | | | logical | | | | | | | insomnia | | | + + + + + + + Reason for Visit + + + | Reason | Comments | + + + | Follow-up | Hospital | + + + Encounter Details +--------+---------+ + + + | Date | Type | Department | Care Team | Description | +--------+---------+ + + + | 04/24/ | Office | [facility] | Dora De La Torre | Left bundle branch | | 2020 | Visit | [facility]ARDIOLOGY [place] | [address] | block (Primary Dx); | | | | [address] | [address] | Paroxysmal A-fib | | | | [address] | [place] [address] | (FORMERLY [facility]); Mild | | | | [place], [place] | [phone] | hyperlipidemia; | | | | [address] | | Benign essential | | | | [phone] | | HTN; Poorly | | | | | | controlled type 2 | | | | | | diabetes mellitus | | | | | | ([facility]); Syncope, | | | | | | [...] | | | | | type ([facility]); Rapid | | | | | | palpitations; | | | | | | Obstructive sleep | | | | | | apnea syndrome; | | | | | | Psychophysiological | | | | | | insomnia | +--------+---------+ + + + Social History [...] Instructions Dora De La Torre FNP - 04/24/2020 11:30 AM PDTI also ordered you a 2 week event Monitor to look at your heart rate I have referred you to Dr. Osuna at [place] [facility] , call [phone] for an appo intment next week as uncorrected sleep apnea Can contribute to atrial fib and palpitations and high blood sugars I think you have uncorrected diabetes, and to decrease your risk of heart attack and stroke , your Hgb A1C should be 6-7, and daily blood sugars around 120-150, and you need to get hel p to get this regulated I made no changes to medications but did change your metoprolol XL to 100 mg pills and con tinue to take 100 mg twice a day as you have been Stay well hydrated By drinking two 8 oz glasses of water when you first get up , and with every meal to help with dizziness , and palpitations See me back in 2 months documented in this encounter Progress Notes Dora De La Torre FNP - 04/24/2020 11:30 AM PDTFormatting of this note might be differe nt from the original. Date of visit: 04/25/2020 Primary Care Physician: Hari Samson DO CHIEF COMPLAINT: Chief Complaint Patient presents with Follow-up Hospital HISTORY OF PRESENT ILLNESS: Ms. Arndt is a 64 year old woman who is here today to follow-up on recent emergency r oom admission for syncope, likely secondary to dehydration from hyperglycemia. She is a patient of , who is her primary exchange specialist, and last seen by her on 08/2020. Today, I reviewed all previous documentation available to me in electronic medical mark rds and from external sources. 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 She previously reported she has not been on any thyroid medicine for several years, and thyroid function has been normal, and that her fatty liver and hyperlipidemia had also resol shelly with weight loss Her [id number] VASC score is 4 (stroke, HTN, gender) , and Dr. Peterson did not anticoagulate he r due to low incidence of atrial fib. When seen by Dr. Peterson, she noted that overall she was stable. She noted her 2014 angiog renan had reported normal coronaries, her 03/05/2019 nuclear stress test was low risk, that he r 08/09/2019 30-day event monitor was notable only for a 24-second run of paroxysmal atrial fibrillation for which she was asymptomatic, and given brevity of episode did not think she needed anticoagulation, and recent 02/07/2020 Echo had shown normal EF without any significa nt valvular abnormalities, and she continued metoprolol succinate 100 mg . I saw her last in 02/14/2020 when I followed up with her about her Echo and had increased h er metoprolol XL to 100 mg twice daily, which she tolerated well. I had also previously suggested she may benefit updated sleep evaluation She reports afte r she lost 160 pounds with a gastric sleeve that she was retested for sleep apnea 2 years ag o, and told the results negative, and no CPAP for 3 years She has previously seen Dr. Garland in [place], and different sleep provider in [facility] when lived over there. She previously had multiple ER visits from October 11 until October 23 for symptoms of p aranoia and hallucinations requiring mental health evaluation and intervention, and her labs from that time are detailed below, so had symptoms of racing heart and palpitations and todd e increase in dyspnea with more extreme exertion,and glucose markedly elevated. Her current and previous testing and procedures are detailed below. She was admitted to the emergency room and monitored Overnight with telemetry on April 20 a . She was consulted by Dr. Staley when she was on the telemetry unit. Notes t hat I reviewed today documented that she was admitted to the emergency room on April 20, 2020 with loss of consciousness, and reported that she was sitting down when this happens, and d id not fall over or injure herself. She apparently told the medical staff that for months s he had felt like she was dying, and denied any chest pain, but did have some shortness of br eath, and denied having diabetes, and reported that she did not tolerate insulin previously. After her syncopal episode she had notified [facility] cardiology, and Dr. Marquez, who was on-call ,had told her to call 911 and go to the emergency room. Her EKG upon admission show ed normal sinus rhythm with ongoing left bundle branch block at 87 bpm, which was similar to the EKG performed in our clinic. She was noted to have significant hyperglycemia with bloo d sugars in the 400's, and she was started on 2 L of IV normal saline, and Dr. Staley consult ed with Dr. Marquez who recommended overnight admission on telemetry to monitor for any a rrhythmias. Dr. Staley documented that she had been sitting in a chair when she fainted once and thinks she had loss of consciousness for approximately 2-3 minutes, and the episode was not associa cb with any shortness of breath, palpitations, or lightheadedness, and denied any symptoms of nausea or feeling clammy cardiac with. She reports she has not been feeling well for 2 w eeks and had been feeling progressively weak and that she was dying and having no energy, bu t denied any fevers chills nausea vomiting dysuria shortness of breath cough or diarrhea. S he is well known to the emergency room for multiple admissions for psychiatric related condi tions as detailed above. Her troponin's were negative and other than her elevated glucose o f 404 ,her labs are unremarkable, and she had no arrhythmias on telemetry when monitored ove rnight and remained in sinus rhythm with no episodes of atrial fib. Dr. Staley felt that her syncope and progressive weakness will related from her extreme hyperglycemia with dehydrati on related to fluid loss and likely had orthostatic hypotension related syncope, as she resp onded well to hydration. Her coronavirus testing was negative and her hemoglobin A1c was [address] Staley noted due to her psychiatric condition her insight into her diabetes was danieli cb, and she continued to insist that she had stress-induced hyperglycemia. She reports today that she has felt improved since her discharge from the hospital, but con tinues to deny that she has diabetes, and is worried that she is going to from another s yncopal episode. I had a lengthy discussion with her that she had more than stress-induced hyperglycemia, as her hemoglobin A1c was actually a picture of her sugars for the past 3 months, and that she had elevated sugars that I had seen in her emergency room visits since at least July, and that she did indeed have type 2 diabetes that needed to be treated, as her risk for s troke and heart attack was very high. She previously had been treated with insulin by her PCP Dr. Samson, but stopped it as th ought her sugars were too low, as under 200. She thinks due to psychiatric conditions lazaro t she is better with blood sugars of 200-300, which I also discussed with her today was not acceptable for long-term health, and that her target blood sugar should be 120-150. I have encouraged her to work with her PCP, or get a referral to an telemarketer supervisor to get her blood sugars better controlled, as contributing to her feelings of weakness. I also discussed with her that she should be reevaluated for sleep apnea, given her palp itations, and paroxysmal atrial fibrillation, though brief, and sleeping difficulties. She reports today that though she feels better, she still feels palpitations, and feels diz zy and lightheaded on occasion, but denies any further episodes of syncope, or signs or symp toms of stroke or TIA. She also thinks she has some shortness of breath with her palpitatio ns, but denies any lower extremity edema. She reports she is a lifelong non-smoker, [...] rash or lesions Neurological: Dizzy and lightheaded , recent syncope, see HPI. History of stroke 2013 affec cb left side with weakness to left arm and leg, residual left-sided droop to mouth, no othe r deficits.Denies history of seizures. Denies numbness. Hematological/Oncology . Bruises easily. Denies bleeding Denies history of cancer. Denies Hx blood transfusion Endocrine: Hx elevated blood sugars with stress (300-500?). Hx Hypothyroidism but resolved and off medications . Denies excessive thirst or hunger. Psychiatric/Behavioral: Bipolar/Schizophrenia. Tx'd by [employer] Vaccines: Current on flu vaccine: 2019 Current on pneumonia vaccine:PPSV 23 05/29/2013 Habits/Social : Denies history of smoking. Denies EtOH use. Denies recreational or illici t drug use. Exercises sporadically. Lives in [place] . Outpatient Medications Prior to Visit Medication Sig Dispense Refill albuterol 90 mcg/puff inhaler Inhale 2 puffs into the lungs every 4 (four) hours as nee ded for Wheezing. amitriptyline (ELAVIL) 150 MG tablet Take 150 mg by mouth nightly . ARIPiprazole (ABILIFY) 10 mg tablet Take 10 mg by mouth nightly. Blood Glucose Monitoring Suppl (ONETOUCH VERIO FLEX SYSTEM) w/Device KIT by Does not ap ply route. calcium carbonate antacid (TUMS ULTRA 1000) 1000 MG CHEW Chew and swallow 1,000 mg 4 ti mes daily as needed. clonazePAM (KLONOPIN) 0.5 mg tablet Take 0.5 mg by mouth 2 times daily. loperamide (IMODIUM A-D) 2 MG tablet Take 2 mg by mouth as needed for Diarrhea. magnesium oxide 250 MG TABS Take 250 mg by mouth 2 times daily. metoprolol succinate (TOPROL-XL) 50 mg 24 hr tablet Take 2 tablets by mouth 2 times natalie ly. 120 tablet 11 OLANZapine (ZYPREXA) 20 MG tablet Take 20 mg by mouth nightly. omeprazole (PRILOSEC) 20 mg capsule Take 20 mg by mouth 2 times daily. Sennosides (EX-LAX) 15 MG CHEW Chew and swallow as needed. No facility-administered medications prior to visit. PHYSICAL EXAM: Wt Readings from Last 3 Encounters: 04/24/20 123 kg (271 lb 3.2 oz) 04/03/20 121.6 kg (268 lb) 02/14/20 122.3 kg (269 lb 11.2 oz) Temp Readings from Last 3 Encounters: 01/10/20 36.8 C (98.2 F) 03/06/15 37.1 C (98.8 F) (Oral) 02/26/15 36.2 C (97.2 F) (Oral) BP Readings from Last 3 Encounters: 04/24/20 122/80 04/03/20 112/72 02/14/20 136/88 Pulse Readings from Last 3 Encounters: 04/24/20 84 04/03/20 98 02/14/20 109 GENERAL: Well developed, well nourished woman, in [...] chest discomfort, [facility] Resting EKG normal sinus rhythm, arrhythmias ventricular [...] nonspecific ST-T wave abnormality rate 82 bpm, FL 176 ms, QRS 80 ms, QTC 446 ms tracing personally reviewed by me EK12/17/2019: Sinus tachycardia, nonspecific ST wave abnormalities, rate 105 bpm, FL 196 ms, QRS 74 ms, QTC 430 ms, tracing personally reviewed by me, and compared to EKG performed in February 2019, rate is less well-controlled EK01/10/2020 (metoprolol XL 50 mg twice daily. Normal sinus rhythm, new left bundle bran ch block Rate 74 bpm, FL 204 ms, QRS 138 ms, QTC 488 [...] bundle branch block. Ra te 105 bpm, FL 184 ms, QRS 144 ms, QTC 489 ms, tracing personally reviewed by me, and compar ed to EKG performed in December , rate is less well-controlled LABS Labs: 12/26/2018: ( [facility] ER)CMP: Sodium 139, potassium 4.2, chloride 99, BUN 10, creatinine 0. 7, BNP 28. CBC: WBC 7.8, hemoglobin 14.3, hematocrit 42.7, platelets 214 Labs: 09/28/2019:( [facility] ER) CBC: WBC 7.8, hemoglobin 14.9, hematocrit 43.8, platelets 221. C MP: Sodium 132, potassium 4.2, chloride 95, AST 76, ALT 76, alk phos 134 Labs: 10/11/2019:( [facility] ER) CBC: WBC 6.7, RBC 4.97, hemoglobin 15.2, hematocrit 44.7, platel ets 200. CMP: Glucose 385, BUN 7, creatinine 0.62, GFR 97, sodium 131, potassium 4.1, chlor kelby 95, albumin 4.3, total bilirubin 0.6, AST 75, ALT 73, alk phos 144. Thyroid: TSH 4.27 Labs: 10/12/2020:( [facility] ER) CBC: WBC 7, RBC 4.93, hemoglobin 14.7, hematocrit 44.1, platele ts 186 normal UA CMP: Glucose 381, BUN 6, creatinine 0.63, GFR 95, sodium 133, potassium 3.8 , chloride 97, albumin 4.3, total bili 0.6, AST 62, ALT 75, alk phos 145 thyroid: TSH 3.07 Labs: 10/20/2019:( [facility] ER) CBC: WBC 7.1, RBC 4.93, hemoglobin 15.1, hematocrit 45.2, platel ets 204. CMP: Glucose 540, BUN 8, creatinine 0.81, GFR 71, sodium 131, potassium 4.1, chlor kelby 95, albumin 4.2, total bili 0.5, AST 54, ALT 63, alk phos 123, negative screen for all d rugs except tricyclics. Thyroid: TSH 3.39. Labs: 04/20/2020: ([facility] ER). CMP: Sodium 130, potassium 4.1, chloride 94, BUN 8, anion gap 1 4.2, CO2 26, creatinine 0.66, GFR 90, glucose 483, magnesium 1.8, total bili 0.4, AST 28, AL T 38, alk phos 134. Troponin T <0.010, albumin 4. CBC: WBC 6.6, RBC 4.89, hemoglobin 14.7, hematocrit 44.3, platelets 197.. Labs: 04/21/2020: Hemoglobin A1c 15.2 (390). COVID-19 PCR negative. ASSESSMENT & PLAN: She was here today to follow-up on her April 20-April 21 ER admission and overnight teleme try stay at [facility] for syncopal episode with extremely elevated glucose levels of 404, with hemoglobin A1c of 15.2. She has problems as detailed below. As discussed in HPI, she did not have any arrhythmias [facility], and her EKG performed the ER showed stable sinus rhythm with rate controlled, and stable left bundle branch block, and no significant change from previous EKG's performed in our in in January Though her heart rate and blood pressure are well controlled today, she continues to rep ort symptoms of palpitations, dizziness, lightheadedness, and weakness. She is also afraid that she may be dying. I reviewed her ER visit and hospitalization results with her, including EKG and labs, and as discussed in HPI ,had a very long and detailed discussion with her that she did indeed h ave type 2 diabetes that was very poorly controlled, and presented a significant risk of hea rt attack and stroke, and needed to be treated. She has agreed to work with her PCP, or possibly get an endocrine consult to treat her d iajuan carlostes. She reports she also may be changing PCP. Though her episode of syncope, was likely related to dehydration, and elevated blood suga rs, I will repeat a 2-week event monitor to ensure no other arrhythmias, AV blocks, or pause s contributing to her syncope. Her previous testing overall has been benign as detailed above. For her medications today,I continued metoprolol XL 100 mg twice daily for tachycardia and palpitations,magnesium oxide 250 mg twice daily for palpitations, and leg cramps which s he thinks has helped. I previously discussed with her that if she had more prolonged episodes of atrial fib, th at we would need to consider anticoagulation. I also discussed with her that she needs an updated evaluation for sleep apnea for epis odes of palpitations, and brief episodes of atrial fibrillation and insomnia , even though t ested negative a few years ago after 160 lb weight loss per her report. I have referred her to the [facility] sleep disorders clinic for further evaluation and bernadine atment Her event monitor will be placed on May 29, and she assured me that she would wear it for the full 2 weeks, and I will follow-up with her about the results on June 26. 1. Left bundle branch block 2. Paroxysmal A-fib (HCC) 3. Mild hyperlipidemia 4. Benign essential HTN 5. Poorly controlled type 2 diabetes mellitus (HCC) 6. Syncope, unspecified syncope type 7. History of sleep apnea 8. History of hypothyroidism 9. History of stroke 10. Schizoaffective disorder, bipolar type (HCC) 11. Rapid palpitations 12. Obstructive sleep apnea syndrome 13. Psychophysiological insomnia Orders Placed This Encounter Procedures Ambulatory Referral to Sleep Medicine Event monitor - 2 week The following portions of the patient's history [...] previous notes for continuity of care purp kavon [facility] 04/25/2020 Laurie vivar in this encounter Plan of Treatment +--------+ + + + + | Date | Type | Specialty | Care Team | Description | +--------+ + + + + | 05/29/ | Procedure | Cardiology | Dora De La Torre | | 2019 | visit | | [address] | | | | | | [address] | | | | | | [place] [address] | | | | | | [phone] | | | | | | | | +--------+ + + + + | 08/28/ | Office | Cardiology | Dora De La Torre | | 2019 | Visit | | [address] | | | | | | [address] | | | | | | [place] [address] | | | | | | [phone] | | | | | | | | +--------+ + + + + + +------+--------+ + + | Name | Type | Priori | Associated Diagnoses | Order Schedule | | | | ty | | | + +------+--------+ + + | Event monitor - 2 | ECG | Routin | Left bundle branch | Expected: | | week | | e | block Paroxysmal | 05/01/2020, Expires: | | | | | A-fib (HCC) | 04/24/2021 | | | | | Syncope, unspecified | | | | | | syncope type Rapid | | | | | | palpitations | | + +------+--------+ + + + + +--------+ + + | Name | Type | Priori | Associated Diagnoses | Order Schedule | | | | ty | | | + + +--------+ + + | Ambulatory Referral | Outpatient | Routin | Left bundle branch | Ordered: 04/24/2020 | | to Sleep Medicine | Referral | e | block Paroxysmal | | | | | | A-fib ([facility]) | | | | | | Schizoaffective | | | | | | disorder, bipolar | | | | | | type ([facility]) Rapid | | | | | | palpitations | | | | | | Obstructive sleep | | | | | | apnea syndrome | | | | | | Psychophysiological | | | | | | insomnia | | + + +--------+ + + documented as of this encounter Visit Diagnoses + + | Diagnosis | + + | Left bundle branch block - Primary Other left bundle branch block | + + | Paroxysmal A-fib (HCC) Atrial fibrillation | + + | Mild hyperlipidemia Other and unspecified hyperlipidemia | + + | Benign essential HTN Essential hypertension, benign | + + | Poorly controlled type 2 diabetes mellitus (HCC) Type II or unspecified type diabetes | | mellitus without mention of complication, not stated as uncontrolled | + + | Syncope, unspecified syncope type | + + | History of sleep apnea Personal history of other specified diseases | + + | History of hypothyroidism Personal history of other endocrine, metabolic, and | | immunity disorders | + + | History of stroke Transient ischemic attack (TIA), and cerebral infarction without | | residual deficits | + + | Schizoaffective disorder, bipolar type (HCC) Schizoaffective disorder, unspecified | | condition | + + | Rapid palpitations Palpitations | + + | Obstructive sleep apnea syndrome Obstructive sleep apnea (adult) (pediatric) | + + | Psychophysiological insomnia Persistent disorder of initiating or maintaining sleep | + + documented in this encounter
--- OUTSIDE RECORDS SUMMARY | ~2020-05-21 | XMS | Encounter Summary ---
Demographics + + + | Address | [address] | | | [place] [address] | + + + | Home Phone [...] [place] | | | | | [address] | | + + + + + Care Team Providers + +------+ + | Care Roof Tiler Name | Role | Phone | + [...] + + | 09/10/ | Documentati | [facility] | Katharine Moncada, | Other (urgent | | 2019 | on | CARDIOLOGY [place] | Technologist | report) | | | | [address] | | | | | | [place] | | | | | | [address] | | | | | | [phone] | | | +--------+ + + + [...] | | | | | [place] [address] | | | | | | [phone] | | | | | | | | +--------+ + + + + | 08/28/ | Office | Cardiology | Dora De La Torre | | | 2020 | Visit | | [address] | | | | | | [address] | | | | | | [place] [address] | | | | | | [phone] | | | | | | | | +--------+ + + + + documented as of this encounter Visit Diagnoses Not on filedocumented in this encounter"
--- OUTSIDE RECORDS SUMMARY | ~2020-05-21 | XMS | Encounter Summary ---
Demographics + + + | Address | [address] | | | [place] [address] | + + + | Home Phone [...] [place] | | | | | [address] | | + + + + + Care Team Providers + +------+ + | Care Felt Hat Steamer Name | Role | Phone | + [...] + + | 08/15/ | Documentati | [facility] | Katharine Moncada, | Other (urgent | | 2019 | on | CARDIOLOGY [place] | Technologist | report) | | | | [address] | | | | | | [place] | | | | | | [address] | | | | | | [phone] | | | +--------+ + + + [...] | | | | | [place] [address] | | | | | | [phone] | | | | | | | | +--------+ + + + + | 08/28/ | Office | Cardiology | Dora De La Torre | | | 2020 | Visit | | [address] | | | | | | [address] | | | | | | [place] [address] | | | | | | [phone] | | | | | | | | +--------+ + + + + documented as of this encounter Visit Diagnoses Not on filedocumented in this encounter"
--- OUTSIDE RECORDS SUMMARY | ~2020-05-21 | XMS | Encounter Summary ---
Demographics + + + | Address | [address] [facility] | | | [place] [address] | + + + | Home Phone [...] [place] | | | | | [address] | | + + + + + Care Team Providers + +------+ + | Care Puller Through Name | Role | Phone | + [...] + | 06/20/ | Telephone | [facility] | Frandy Teresa, | Other (surgery | | 2013 | | NEUROSURGERY [address] | DO [address] | reminder ) | | | | [address] | [address] [place], [place] | | | | | [place], [place] | [id number] | | | | | [address] | | | | | | [phone] | | | +--------+ + + + [...] 4:30 PM PDTLeft message for Cindy regarding shiloh felipe on 06/25/14. Asked that she please return [...] [address] | | | | | | [place] [address] | | | | | | [phone] | | | | | | | | +--------+ + + + + | 08/28/ | Office | Cardiology | Dora De La Torre | | | 2019 | Visit | | [address] | | | | | | [address] | | | | | | [place] [address] | | | | | | [phone] | | | | | | | | +--------+ + + + + documented as of this encounter Visit Diagnoses Not on filedocumented in this encounter"
--- OUTSIDE RECORDS SUMMARY | ~2020-05-21 | XMS | Encounter Summary ---
Demographics + + + | Address | [address] [facility] | | | [place] [address] | + + + | Home Phone [...] [place], [place] | | | | | [address] | | + + + + + Care Team Providers + +------+ + | Care Ripening Room Operator Name | Role | Phone | + +------+ + PCP | Unavailable | + +------+ + Encounter Details +--------+ + + + + | Date | Type | Department | Care Team | Description | +--------+ + + + + | 12/24/ | Hospital | [facility] | | | | 1998 | Encounter | MED CTR XRAY [address] | | | | | | [address] | | | | | | [place] [address] | | | | | | [phone] | | | +--------+ + + + [...] | | | | | [place] [address] | | | | | | [phone] | | | | | | | | +--------+ + + + + | 08/28/ | Office | Cardiology | Dora De La Torre | | | 2019 | Visit | | [address] | | | | | | [address] | | | | | | [place] [address] | | | | | | [phone] | | | | | | | | +--------+ + + + + documented as of this encounter Visit Diagnoses Not on filedocumented in this encounter"
--- OUTSIDE RECORDS SUMMARY | ~2020-05-21 | XMS | Encounter Summary ---
Demographics + + + | Address | [address] [facility] | | | [place] [address] | + + + | Home Phone [...] [place], [place] | | | | | [address] | | + + + + + Care Team Providers + +------+ + | Care Cupola Repairer Name | Role | Phone | + +------+ + PCP | Unavailable | + +------+ + Encounter Details +--------+ + + + + | Date | Type | Department | Care Team | Description | +--------+ + + + + | 03/26/ | Hospital | [facility] | | | | 2001 | Encounter | MED CTR LABORATORY | | | | | | [address] | | | | | | [place] | | | | | | [address] | | | | | | [phone] | | | +--------+ + + + [...] | | | | | [place] [address] | | | | | | [phone] | | | | | | | | +--------+ + + + + | 08/28/ | Office | Cardiology | Dora De La Torre | | | 2020 | Visit | | [address] | | | | | | [address] | | | | | | [place] [address] | | | | | | [phone] | | | | | | | | +--------+ + + + + documented as of this encounter Visit Diagnoses Not on filedocumented in this encounter"
--- OUTSIDE RECORDS SUMMARY | ~2020-05-21 | XMS | Encounter Summary ---
Demographics + + + | Address | [address] [facility] | | | [place] [address] | + + + | Home Phone [...] [place] | | | | | [address] | | + + + + + Care Team Providers + +------+ + | Care Word Processing Operator Name | Role | Phone | [...] + + | 10/04/ | Office | [facility] | Desiree Peterson DO | ROGERS on CPAP (Primary | | 2019 | Visit | CARDIOLOGY [place] | [address] | Dx); Morbid obesity | | | | [address] | [place] [address] [place], [place] | (HCC); Benign | | | | [address] | [address] | essential HTN; | | | | [place], [place] | | Atrial fibrillation, | | | | [address] | | unspecified type | | | | [phone] | | ([facility]) | +--------+---------+ + + + Social [...] Desiree Peterson, - 10/04/2019 11:40 AM PST [facility] Cardiology Cardiology Follow Up Note Reason [...] rtake in exercise. She recently got a J-Kan and has been walking him more regularly. [...] by mouth daily. Blood Glucose Monitoring Suppl (Milestone PharmaceuticalsIO FLEX SYSTEM) w/Device KIT by Does not ap ply route. budesonide-formoterol (SYMBICORT) 160-4.5 MCG/ACT inhaler Inhale 2 puffs into the lungs 2 (two) times daily. Calcium Carbonate Antacid 1000 MG tablet Take 1,000 mg by mouth 3 (three) times daily. Cholecalciferol (VITAMIN D3) 52763 units CAPS Take by mouth once a [...] [address] | | | | | | [place] [address] | | | | | | [phone] | | | | | | | | +--------+ + + + + | 08/28/ | Office | Cardiology | Dora De La Torre | | | 2019 | Visit | | [address] | | | | | | [address] | | | | | | [place] [address] | | | | | | [phone] | | | | | | | [...]
--- OUTSIDE RECORDS SUMMARY | ~2020-05-21 | XMS | Encounter Summary ---
Demographics + + + | Address | [address] [facility] | | | [place] [address] | + + + | Home Phone [...] [place] | | | | | [address] | | + + + + + Care Team Providers + +------+ + | Care Stud Setter Name | Role | Phone | [...] | | | | | | [place], [place] | | | | | | [address] | | | | | | [phone] | | | +--------+ + + + [...] | | | | | [place] [address] | | | | | | [phone] | | | | | | | | +--------+ + + + + | 08/28/ | Office | Cardiology | Dora De La Torre | | | 2020 | Visit | | [address] | | | | | | [address] | | | | | | [place] [address] | | | | | | [phone] | | | | | | | | +--------+ + + + + documented as of this encounter Visit Diagnoses Not on filedocumented in this encounter"
--- OUTSIDE RECORDS SUMMARY | ~2020-05-21 | XMS | Encounter Summary ---
Demographics + + + | Address | [address] [facility] | | | [place] [address] | + + + | Home Phone | | + + + | Preferred Language | Unknown | + + + | Marital Status | Single | + + + | Presybeterian Affiliation | Unknown | + + + | Race | White | + + + | Ethnic Group | Not or | + + + Author + + + | Author | [facility] | + + + | Organization | [facility] | + + + | Address | Unknown | + + + | Phone | Unavailable | + + + Support + + + + + | Name | Relationship | Address | Phone | + + + + + | Kelsy Bautista | [address] | [address] | | | | | [place] | | | | | [address] | | + + + + + Care Team Providers + +------+ + | Care Computer Systems Support Specialist Name | Role | Phone [...] [id number] | | | | | | [place], [place] | | | | | | [address] | | | | | | [phone] | | | +--------+ + + + [...] + + | [facility] | [address] | [place] [address] | | | PATHOLOGY | [address] [...] Re | | | | | | [address] | | | | + + + + + + + + | Specimen | + + | | + + + + + + + | Performing | Address | City/State/Zipcode | Phone Number | | Organization | | | | + + + + + | [facility] | [address] | [place] [address] | | | PATHOLOGY | [address] [...] Re | | | | | | [address] | | | | + + + + + + + + | Specimen | + + | | + + + + + + + | Performing | Address | City/State/Zipcode | Phone Number | | Organization | | | | + + + + + | [facility] | [address] | [place] [address] | | | PATHOLOGY | [address] [...] Re | | | | | | [phone] | | | | + + + + + + + + | Specimen | + + | | + + + + + + + | Performing | Address | City/State/Zipcode | Phone Number | | Organization | | | | + + + + + | [facility] | [address] | [place] [address] | | | PATHOLOGY | [address] [...] Re | | | | | | [phone] | | | | + + + + + + + + | Specimen | + + | | + + + + + + + | Performing | Address | City/State/Zipcode | Phone Number | | Organization | | | | + + + + + | [facility] | [address] | [place] [address] | | | PATHOLOGY | [address] | | | + + + + + documented in this encounter Visit Diagnoses Not on filedocumented in this encounter"
--- OUTSIDE RECORDS SUMMARY | ~2020-05-21 | XMS | Encounter Summary ---
Demographics + + + | Address | [address] [facility] | | | [place] [address] | + + + | Home Phone [...] [place], [place] | | | | | [address] | | + + + + + Care Team Providers + +------+ + | Care Wood And Hardware Outfitter Name | Role | Phone | + +------+ + PCP | Unavailable | + +------+ + Encounter Details +--------+ + + + + | Date | Type | Department | Care Team | Description | +--------+ + + + + | 12/31/ | Hospital | [facility] | | | | 1996 | Encounter | MED CTR XRAY [address] | | | | | | [address] | | | | | | [place] [address] | | | | | | [phone] | | | +--------+ + + + [...] | | | | | [place] [address] | | | | | | [phone] | | | | | | | | +--------+ + + + + | 08/28/ | Office | Cardiology | Dora De La Torre | | | 2019 | Visit | | [address] | | | | | | [address] | | | | | | [place] [address] | | | | | | [phone] | | | | | | | | +--------+ + + + + documented as of this encounter Visit Diagnoses Not on filedocumented in this encounter"
--- OUTSIDE RECORDS SUMMARY | ~2020-05-21 | XMS | Encounter Summary ---
Demographics + + + | Address | [address] [facility] | | | [place] [address] | + + + | Home Phone [...] [place] | | | | | [address] | | + + + + + Care Team Providers + +------+ + | Care Registry Np Name | Role | Phone | + +------+ + | Basim Bolanos MD | PCP | | + +------+ + Encounter Details +--------+ + + + + | Date | Type | Department | Care Team | Description | +--------+ + + + + | 01/24/ | Abstract | [facility] [place] | [facility], | | | 2012 | | GASTROENTEROLOGY | FORT[place]O Thomas [address] | | | | | [address] | [address] | | | | | [address] [place], [place] | [place], [place] | | | | | [address] | [address] | | | | | [phone] | | | +--------+ + + + [...] | | | | | [place] [address] | | | | | | [phone] | | | | | | | | +--------+ + + + + | 08/28/ | Office | Cardiology | Dora De La Torre | | | 2019 | Visit | | [address] | | | | | | [address] | | | | | | [place] [address] | | | | | | [phone] | | | | | | | | +--------+ + + + + documented as of this encounter Visit Diagnoses Not on filedocumented in this encounter"
--- OUTSIDE RECORDS SUMMARY | ~2020-05-21 | XMS | Encounter Summary ---
Demographics + + + | Address | [address] [facility] | | | [place] [address] | + + + | Home Phone [...] [place] | | | | | [address] | | + + + + + Care Team Providers + +------+ + | Care Arc Welder Apprentice Name | Role | Phone [...] [address] | | | | | [place], [place] | Shaheen Simons | | | | | [address] | [place] [address] | | | | | [phone] | [phone] | | | | | | | [...] [address] | | | | | | [place] [address] | | | | | | [phone] | | | | | | | | +--------+ + + + + | 08/28/ | Office | Cardiology | Dora De La Torre | | | 2019 | Visit | | [address] | | | | | | [address] | | | | | | [place] [address] | | | | | | [phone] | | | | | | | [...] GIVEN Testing | | | performed at [facility];[address] [place] [address];[place] [address] CULTURE | | | 50,000 TO 100,000 CFU/ML | | | MIXED GRAM POSITIVE HAIDER NO SUSCEPTIBILITY TO FOLLOW | | | MULTIPLE ORGANISM TYPES PRESENT, | | | SUGGESTIVE OF CONTAMINATION OR COLONIZATION. SUGGEST RECOLLECTION FOR | | | CULTURE. Testing | | | performed at [facility];[address] [place] [address];[place] [address] REPORT | | | STATUS 06/08/2012 FINAL [...]
--- OUTSIDE RECORDS SUMMARY | ~2020-05-21 | XMS | Encounter Summary ---
Demographics + + + | Address | [address] [facility] | | | [place] [address] | + + + | Home Phone [...] [place] | | | | | [address] | | + + + + + Care Team Providers + +------+ + | Care Data Security Analyst Name | Role | Phone | [...] + + | 09/10/ | Documentati | [facility] | Katharine Moncada, | Other (urgent | | 2019 | on | CARDIOLOGY [place] | Technologist | report) | | | | [address] | | | | | | [place] | | | | | | [address] | | | | | | [phone] | | | +--------+ + + + [...] | | | | | [place] [address] | | | | | | [phone] | | | | | | | | +--------+ + + + + | 08/28/ | Office | Cardiology | Dora De La Torre | | | 2020 | Visit | | [address] | | | | | | [address] | | | | | | [place] [address] | | | | | | [phone] | | | | | | | | +--------+ + + + + documented as of this encounter Visit Diagnoses Not on filedocumented in this encounter"
--- OUTSIDE RECORDS SUMMARY | ~2020-05-21 | XMS | Encounter Summary ---
Demographics + + + | Address | [address] [facility] | | | [place] [address] | + + + | Home Phone [...] [place] | | | | | [address] | | + + + + + Care Team Providers + +------+ + | Care Taste Tester Name | Role | Phone | [...] + + | 07/10/ | Telephone | [facility] | Frandy Teresa, | Imaging Only (1 year | | 2014 | | NEUROSURGERY [address] | DO [address] | x-ray ) | | | | [address] | [address] [place], [place] | | | | | [place], [place] | [address] | | | | | [address] | | | | | | [phone] | | | +--------+ + + + [...] [address] | | | | | | [place] [address] | | | | | | [phone] | | | | | | | | +--------+ + + + + | 08/28/ | Office | Cardiology | Dora De La Torre | | | 2019 | Visit | | [address] | | | | | | [address] | | | | | | [place] [address] | | | | | | [phone] | | | | | | | | +--------+ + + + + documented as of this encounter Visit Diagnoses Not on filedocumented in this encounter"
--- OUTSIDE RECORDS SUMMARY | ~2020-05-21 | XMS | Encounter Summary ---
Demographics + + + | Address | [address] [facility] [facility] | | | [place] [address] | + + + | Home Phone [...] [place] | | | | | [address] | | + + + + + Care Team Providers + +------+ + | Care Toxicology Teacher Name | Role | Phone | [...] [place] | | | | | | [address] | | | | | | [phone] | | | +--------+ + + + [...] | 2019 | visit | | [address] | | | | | | [address] | | | | | | [place] [address] | | | | | | [phone] | | | | | | | | +--------+ + + + + | 08/28/ | Office | Cardiology | Dora De La Torre | | | 2020 | Visit | | [address] | | | | | | [address] | | | | | | [place] [address] | | | | | | [phone] | | | | | | | | +--------+ + + + + documented as of this encounter Visit Diagnoses Not on filedocumented in this encounter"
--- OUTSIDE RECORDS SUMMARY | ~2020-05-21 | XMS | Encounter Summary ---
Demographics + + + | Address | [address] [facility] | | | [place] [address] | + + + | Home Phone [...] [place] | | | | | [address] | | + + + + + Care Team Providers + +------+ + | Care Balloon Sander Name | Role | Phone | [...] + + | 02/06/ | Telephone | [facility] | Roxannmiguel ángelDora | Patient Concerns | | 2020 | | CARDIOLOGY [place] | [address] | | | | | [address] | [address] | | | | | [address] | [place] [address] | | | | | [place] | [phone] | | | | | [address] | | | | | | [phone] | | | +--------+ + + + [...] [address] | | | | | | [place] [address] | | | | | | [phone] | | | | | | | | +--------+ + + + + | 08/28/ | Office | Cardiology | Dora De La Torre | | | 2019 | Visit | | [address] | | | | | | [address] | | | | | | [place] [address] | | | | | | [phone] | | | | | | | | +--------+ + + + + documented as of this encounter Visit Diagnoses Not on filedocumented in this encounter"
--- OUTSIDE RECORDS SUMMARY | ~2020-05-21 | XMS | Encounter Summary ---
Demographics + + + | Address | [address] [facility] | | | [place] [address] | + + + | Home Phone [...] [place] | | | | | [address] | | + + + + + Care Team Providers + +------+ + | Care Chief Learning Officer Name | Role | Phone | [...] + + | 08/28/ | Telephone | [facility] | Ashley Chávez | Other (Patient has | | 2018 | | CARDIOLOGY [place], Form Drafter | questions about | | | | [address] | | monitor. ) | | | | [place] | | | | | | [address] | | | | | | [phone] | | | +--------+ + + + [...] Miscellaneous Notes Telephone Encounter - Ashley Chávez, Form Drafter - 08/28/2019 8:32 AM Rory foster says [...] that if she chooses. Patient stated understanding. JPolloW:BACK SIZER-AAMA. [facility] umented in this encounter Plan of Treatment [...] [address] | | | | | | [place] [address] | | | | | | [phone] | | | | | | | | +--------+ + + + + | 08/28/ | Office | Cardiology | Dora De La Torre | | | 2020 | Visit | | [address] | | | | | | [address] | | | | | | [place] [address] | | | | | | [phone] | | | | | | | | +--------+ + + + + documented as of this encounter Visit Diagnoses Not on filedocumented in this encounter"
--- OUTSIDE RECORDS SUMMARY | ~2020-05-21 | XMS | Encounter Summary ---
Demographics + + + | Address | [address] [facility] | | | [place] [address] | + + + | Home Phone [...] + + + | Author | [facility] | + + + | Organization | [facility] | + + + | Address | Unknown | + + + | Phone | Unavailable | + + + Support + + + + + | Name | Relationship | Address | Phone | + + + + + | Kelsy Bautista | [address] | [address] | | | | | [place] | | | | | [address] | | + + + + + Care Team Providers + +------+ + | Care Pastry Sous Chef Name | Role | Phone | + [...] | | | | | | [place] [address] | | | | | | [phone] | | | | | | | [...] in | | | | | | [place] with a | | | | | [...] [facility] | [facility] | [facility] | | | | | | Laboratory, [place], | | | | | | [place], delivered | | | | | | [...] by | | | | | | igknynhkRqf-Zfn-N: | | | | | | Increased [...] istryMHC-1: | | | | | | TpdchagoQL55 stain | | | | | | [...] | + + + + + | [facility] | [address] | [place] [address] | | | PATHOLOGY | [address] | | | + + + + + documented in this encounter Visit Diagnoses Not on filedocumented in this encounter
--- OUTSIDE RECORDS SUMMARY | ~2020-05-21 | XMS | Encounter Summary ---
Demographics + + + | Address | [address] [facility] | | | [place] [address] | + + + | Home Phone [...] [place] | | | | | [address] | | + + + + + Care Team Providers + +------+ + | Care Party Plan Salesperson Name | Role | Phone | [...] [address]VE | | | | | [address] [facility] [address] | [address] [place], [place] | | | | | [place], [place] | [id number] | | | | | [address] | | | | | | [phone] | | | +--------+--------+ + + + [...] to notify that p rescription refill for [place] has been authorized. Informed about MRI results per MD results. Also notified about new medication neurontin. Pt verbalized understanding and will notify o ur office if her numbness to bilat feet (upper and lower) doesn't improve. Pt requested refi ll rx of [place] to be mailed via certified mail [facility] signed by Megan Schreiber, RN at [...] PSTPt called to requesting medication refill of [place]. Pt c/o l ower back and left [...] in thi s encounter Plan of Treatment +--------+ + + + + | Date | Type | Specialty | Care Team | Description | +--------+ + + + + | 05/29/ | Procedure | Cardiology | BrittDora | | | 2019 | visit | | [address] | | | | | | [address] | | | | | | [place] [address] | | | | | | [phone] | | | | | | | | +--------+ + + + + | 08/28/ | Office | Cardiology | Dora De La Torre | | | 2019 | Visit | | [address] | | | | | | [address] | | | | | | [place] [address] | | | | | | [phone] | | | | | | | | +--------+ + + + + documented as of this encounter Visit Diagnoses Not on filedocumented in this encounter"
--- OUTSIDE RECORDS SUMMARY | ~2020-05-21 | XMS | Encounter Summary ---
Demographics + + + | Address | [address] [facility] | | | [place] [address] | + + + | Home Phone [...] [place], [place] | | | | | [address] | | + + + + + Care Team Providers + +------+ + | Care Weir Fisherman Name | Role | Phone | + +------+ + PCP | Unavailable | + +------+ + Encounter Details +--------+ + + + + | Date | Type | Department | Care Team | Description | +--------+ + + + + | 05/23/ | Hospital | [facility] | | | | 1991 | Encounter | MED CTR XRAY [address] | | | | | | [address] | | | | | | [place] [address] | | | | | | [phone] | | | +--------+ + + + [...] | | | | | [place] [address] | | | | | | [phone] | | | | | | | | +--------+ + + + + | 08/28/ | Office | Cardiology | Dora De La Torre | | | 2019 | Visit | | [address] | | | | | | [address] | | | | | | [place] [address] | | | | | | [phone] | | | | | | | | +--------+ + + + + documented as of this encounter Visit Diagnoses Not on filedocumented in this encounter"
--- OUTSIDE RECORDS SUMMARY | ~2020-05-21 | XMS | Encounter Summary ---
Demographics + + + | Address | [address] [facility] | | | [place] [address] | + + + | Home Phone [...] [place] | | | | | [address] | | + + + + + Care Team Providers + +------+ + | Care Cyber Security Engineer Name | Role | Phone | + +------+ + | Natalee Andersen NP | PCP | | + +------+ + Encounter Details +--------+---------+ + + + | Date | Type | Department | Care Team | Description | +--------+---------+ + + + | 06/25/ | Surgery | [facility] | Frandy Teresa, | Canceled | | 2013 | | MED CTR OR INTRA OP | DO [address] | PROCEDURE NOT | | | | [address] | [address] [place], [place] | PERFORMED | | | | [place], [place] | [address] | | | | | [address] | | | | | | [phone] | | | +--------+---------+ + + + [...] + + + +---------+ + + | [place]-3 Fatty | Take 1,000 mg by | [...] this en counter H&P Notes ONBRUCE ABREU [facility] - 06/21/2014 12:00 AM PDT [...] MD at 06/26/2014 8:05 AM PDTONBRUCE ABREU [facility] - 06/26 12:00 AM PDT NBRUCE ZAMORA N [facility] - 06/26/2014 12:00 AM PDT NBASE SCAN [facility] - 06/12/2014 12:00 AM PDTElectronically signed by Mariah Schulte at 06/12 7:30 AM [facility] - 06/11/2014 12:00 AM PDT documented in this encounter Miscellaneous Notes Miscellaneous - ONBASE SCAN [facility] - 06/26/2014 12:00 AM PDT [...] stenosis, lumbar region, without neurogenic claudication ). Railway Switchman visit is in response to an electronic spiritual care consult request. Patient wa s resting comfortably in bed; she was attended by her mom and dad - both sate nearby and see med very attentive and supportive. Cindy is Moravian, attends [employer], and is strong in her rangel. She is excited about taking care of her back problem and fe els very secure in Dr. Teresa's care. She welcomed prayer, and expressed appreciation for th visit. Follow up with regular visits, emotional and spiritual support. iscellaneo us - ONBASE SCAN [facility] - 06/25/2014 12:00 AM PDTElectronically [...] [address] | | | | | | [place] [address] | | | | | | [phone] | | | | | | | | +--------+ + + + + | 08/28/ | Office | Cardiology | Dora De La Torre | | | 2019 | Visit | | CAROLINE Mendez [address] | | | | | | [address] | | | | | | [place] [address] | | | | | | [phone] | | | | | | | [...] mL/min/1.73m2 | [facility] | | | Tanz[place] | RATE,ESTIMATED | | MEDICAL | | | | mL/min/1.23c0Exxh than | | CENTER - | | [...] + | [facility] | [address] | [place], [place] | [phone] | | [facility] | | [address] | | | - LABORATORY | | | | + + + + + | [facility] | [address] | [place], [place] | | | [facility] | | [address] [place] [address] | | | - LABORATORY | | [...] + | [facility] | [address] | [place] | [phone] | | [facility] | | [address] | | | - LABORATORY | | | | + + + + + | [facility] | [address] | [place] | | | [facility] | | [address], [facility] | | | - [...] [address] | [place] | [phone] | | [facility] | | [address] | | | - LABORATORY | | | | + + + + + | [facility] | [address] | [place] | | | [facility] | | [address], [facility] | | | - [...] | | [facility] | | [address] | | | - BLOOD BANK | [...] + | [facility] | [address] | [place], [place] | [phone] | | [facility] | | [address] | | | - LABORATORY | | | | + + + + + | [facility] [facility] | [address] | [place], [place] | | | [facility] | | [address] | | | - [...]
--- OUTSIDE RECORDS SUMMARY | ~2020-05-21 | XMS | Encounter Summary ---
Demographics + + + | Address | [address] [facility] | | | [place] [address] | + + + | Home Phone [...] [place] | | | | | [address] | | + + + + + Care Team Providers + +------+ + | Care Clinical Documentation Clerk Name | Role | Phone | + +------+ + | Basim Bolanos MD | PCP | | + +------+ + Encounter Details +--------+ + + + + | Date | Type | Department | Care Team | Description | +--------+ + + + + | 03/30/ | Hospital | [facility] | Tyrese Neely MD | | | 2012 | Encounter | MED CTR MP INTRA OP | [address], [place]winder | | | | | [address] | [address] [place], [place] | | | | | [place], [place] | [address] | | | | | [address] | | | | | | [phone] | | | +--------+ + + + [...] + + + +---------+ + + | [place]-3 Fatty | Take 1,000 mg by [...] Neely MD - 03/30/2013 12:10 [place] [address] Patient Name: CINDY ARNDT Provider: Tyrese Neely MD Unit #: [id number] Location: [facility] : 1955 Patient Name: Cindy Arndt Gender: F Procedure Date: 03/30/2013 12:10 PM Date of : 1955 Age: 57 Admit Type: Outpatient Room: Endo Room 1 Note Status: Finalized Attending MD: Tyrese Neely MD Procedure: Upper GI endoscopy Indications: Epigastric abdominal pain Providers: Tyrese Neely MD, Vanesa Anne RN, Yesenia Downing, Metal Model Maker, Guillermo Ortiz MD (Anesthesia Staff) Referring MD: [...] physician, the nurse, the anesthesiologist and the blow mold technician. The procedure was verified in the [...] C[address]U | | | | | | [place] [address] | | | | | | [phone] | | | | | | | | +--------+ + + + + | 08/28/ | Office | Cardiology | Isacc De La Torre | | 2019 | Visit | | Vanessa, PROGRAM DEVELOPMENT MANAGER [address] | | | | | | [address] | | | | | | [place] [address] | | | | | | [phone] | | | | | | | [...] + | [facility] | [address] | [place], [place] | [phone] | | [facility] | | [address] | | | - LABORATORY | | | | + + + + + | [facility] | [address] | [place], [place] | | | [facility] | | [address] | | | - [...] + | [facility] | [address] | [place] | [phone] | | [facility] | | [address] | | | - LABORATORY | | | | + + + + + | [facility] | [address] | [place], [place] | | | [facility] | | [id number] [place] [address] | | | - LABORATORY | | | | + + + + + documented in this encounter Visit Diagnoses Not on filedocumented in this encounter"
--- OUTSIDE RECORDS SUMMARY | ~2020-05-21 | XMS | Encounter Summary ---
Demographics + + + | Address | [address] [facility] | | | [place] [address] | + + + | Home Phone [...] [place] | | | | | [address] | | + + + + + Care Team Providers + +------+ + | Care Cogeneration Technician Name | Role | Phone | [...] Clinic | | | | | | [facility], [address] | | | | | | [place], [place] | | | | | | [address] | | | | | | [phone] | | | +--------+ + + + [...] as of this encounter Progress Notes Interface, Senior C Web Developer In - 12/11/2006 5:03 AM [facility] DATE: 07/03/97 INFECTIOUS DISEASE CLINIC: [...]
--- OUTSIDE RECORDS SUMMARY | ~2020-05-21 | XMS | Encounter Summary ---
Demographics + + + | Address | [address] [facility] | | | [place] [address] | + + + | Home Phone [...] [place] | | | | | [address] | | + + + + + Care Team Providers + +------+ + | Care Senior Court Office Assistant Name | Role | Phone | [...] + | 02/21/ | Refill | [facility] | Deon Gonzales | Medication Refill | | 2012 | | SLEEP DISORDER [address] | MD Laureano [address] | | | | | [address] | [address] | | | | | [place] [address] | [place] [address] | | | | | [phone] | [phone] | | | | | | | [...] - 02/22/2013 9:32 AM [facility] documented in this encount er Plan [...] CANTU | | | | | | [place] [address] | | | | | | [phone] | | | | | | | | +--------+ + + + + | 08/28/ | Office | Cardiology | Dora De La Torre | | | 2020 | Visit | | [address]OLINE Mendez [address] | | | | | | [address] | | | | | | [place] [address] | | | | | | [phone] | | | | | | | | +--------+ + + + + documented as of this encounter Visit Diagnoses + + | Diagnosis | + + | Obstructive sleep apnea (adult) (pediatric) - Primary | + + documented in this encounter"
--- OUTSIDE RECORDS SUMMARY | ~2020-05-21 | XMS | Encounter Summary ---
Demographics + + + | Address | [address] [facility] | | | [place] [address] | + + + | Home Phone [...] [place] | | | | | [address] | | + + + + + Care Team Providers + +------+ + | Care Weight Guesser Name | Role | Phone | + [...] + + | 08/22/ | Documentati | [facility] | Katharine Moncada, | Other (urgent | | 2019 | on | CARDIOLOGY [place] | Technologist | report) | | | | [address] | | | | | | [place] | | | | | | [address] | | | | | | [phone] | | | +--------+ + + + [...] | | | | | [place] [address] | | | | | | [phone] | | | | | | | | +--------+ + + + + | 08/28/ | Office | Cardiology | Dora De La Torre | | | 2020 | Visit | | [address] | | | | | | [address] | | | | | | [place] [address] | | | | | | [phone] | | | | | | | | +--------+ + + + + documented as of this encounter Visit Diagnoses Not on filedocumented in this encounter"
--- OUTSIDE RECORDS SUMMARY | ~2020-05-21 | XMS | Encounter Summary ---
Demographics + + + | Address | [address] [facility] | | | [place] [address] | + + + | Home Phone [...] [place] | | | | | [address] | | + + + + + Care Team Providers + +------+ + | Care China Painter Name | Role | Phone | [...] updated | | | | | [address] [facility], | address | | | | | [address] [place] | | | | | | [place] [address] | | | | | | [phone] | | | +--------+ + + + [...] RN - 03/04/2015 9:39 AM PDTPatient called irasmeajackson if she still needs to take her [...] | | | | | [place] [address] | | | | | | [phone] | | | | | | | | +--------+ + + + + | 08/28/ | Office | Cardiology | Dora De La Torre | | | 2019 | Visit | | [address] | | | | | | [address] | | | | | | [place] [address] | | | | | | [phone] | | | | | | | | +--------+ + + + + documented as of this encounter Visit Diagnoses Not on filedocumented in this encounter"
--- OUTSIDE RECORDS SUMMARY | ~2020-05-21 | XMS | Encounter Summary ---
Demographics + + + | Address | [address] [facility] | | | [place] [address] | + + + | Home Phone [...] [place] | | | | | [address] | | + + + + + Care Team Providers + +------+ + | Care Hostess Name | Role | Phone | + +------+ + | Basim Bolanos MD | PCP | | + +------+ + Encounter Details +--------+ + + + + | Date | Type | Department | Care Team | Description | +--------+ + + + + | 04/18/ | Abstract | [facility] [place] | [facility], | | | 2012 | | GASTROENTEROLOGY | FORTUNATO Thomas [address] | | | | | [address] | [address] | | | | | [address] [place], [place] | [place], [place] | | | | | [address] | [address] | | | | | [phone] | | | +--------+ + + + [...] | | | | | [place] [address] | | | | | | [phone] | | | | | | | | +--------+ + + + + | 08/28/ | Office | Cardiology | Dora De La Torre | | | 2020 | Visit | | [address] | | | | | | [address] | | | | | | [place] [address] | | | | | | [phone] | | | | | | | | +--------+ + + + + documented as of this encounter Visit Diagnoses Not on filedocumented in this encounter"
--- OUTSIDE RECORDS SUMMARY | ~2020-05-21 | XMS | Encounter Summary ---
Demographics + + + | Address | [address] [facility] | | | [place] [address] | + + + | Home Phone [...] [place] | | | | | [address] | | + + + + + Care Team Providers + +------+ + | Care Front Desk Admin Name | Role | Phone | + [...] + + | 08/20/ | Documentati | [facility] | Katharine Moncada, | Other (urgent | | 2019 | on | CARDIOLOGY [place] | Technologist | report) | | | | [address] | | | | | | [place] | | | | | | [address] | | | | | | [phone] | | | +--------+ + + + [...] | | | | | [place] [address] | | | | | | [phone] | | | | | | | | +--------+ + + + + | 08/28/ | Office | Cardiology | Dora De La Torre | | | 2020 | Visit | | [address] | | | | | | [address] | | | | | | [place] [address] | | | | | | [phone] | | | | | | | | +--------+ + + + + documented as of this encounter Visit Diagnoses Not on filedocumented in this encounter"
--- OUTSIDE RECORDS SUMMARY | ~2020-05-21 | XMS | Encounter Summary ---
Demographics + + + | Address | [address] [facility] | | | [place] [address] | + + + | Home Phone [...] [place] | | | | | [address] | | + + + + + Care Team Providers + +------+ + | Care Mortgage Processor Name | Role | Phone | [...] | | | SAUM[address] TRAN, | [place] [address] | | | | | [place] [address] | [phone] | | | | | [phone] | | | +--------+--------+ + + + [...] [address] | | | | | | [place] [address] | | | | | | [phone] | | | | | | | | +--------+ + + + + | 08/28/ | Office | Cardiology | Dora De La Torre | | | 2020 | Visit | | CAROLINE Mendez [address] | | | | | | [address] | | | | | | [place] [address] | | | | | | [phone] | | | | | | | | +--------+ + + + + documented as of this encounter Visit Diagnoses + + | Diagnosis | + + | Essential hypertension - Primary Unspecified essential hypertension | + + documented in this encounter"
--- OUTSIDE RECORDS SUMMARY | ~2020-05-21 | XMS | Encounter Summary ---
Demographics + + + | Address | [address] [facility] | | | [place] [address] | + + + | Home Phone [...] [place] | | | | | [address] | | + + + + + Care Team Providers + +------+ + | Care Lead Programmer Name | Role | Phone | [...] [address] | [address] [place], [place] | fusion | | | | [place], [place] | [address] | | | | | [address] | | | | | | [phone] | | | +--------+ + + + [...] [address] | | | | | | [place] [address] | | | | | | [phone] | | | | | | | | +--------+ + + + + | 08/28/ | Office | Cardiology | Dora De La Torre | | | 2019 | Visit | | CAR[address]INE M[address] | | | | | | [address] | | | | | | [place] [address] | | | | | | [phone] | | | | | | | | +--------+ + + + + documented as of this encounter Visit Diagnoses + + | Diagnosis | + + | Lumbago - Primary | + + | S/P lumbar fusion Arthrodesis status | + + documented in this encounter"
--- OUTSIDE RECORDS SUMMARY | ~2020-05-21 | XMS | Clinical Summary ---
Demographics + + + | Address | [address] [facility] | | | [place] [address] | + + + | Home Phone [...] [place] | | | | | [address] | | + + + + + Care Team Providers + +------+ + | Care Cannery Tender Engineer Name | Role | Phone | [...] | | | | e | | (IMVU VERIO FLEX | | | | | [...] De La Torre | Testing | | 2019 | | | CAROLINE [...] | | | | | | ([facility]); Mild | | | | | | hyperlipidemia; | | | | | | Benign essential | | | | | | HTN; Poorly | | | | | | controlled type 2 | | | | | | diabetes mellitus | | | | | | ([facility]); Syncope, | | | | | [...] | | | | | type ([facility]); Rapid | | | | | | palpitations; | | | | | | Obstructive sleep | | | | | | apnea syndrome; | | | | | | Psychophysiological | | | | | | insomnia | +--------+ + + + + | 04/03/ | Office | Cardiology | Brett Peterson [...] | | obesity) ([facility]); | | | | | | History [...] | | | | | [place] [address] | | | | | | [phone] | | | | | | | | +--------+ + + + + | 08/28/ | Office | Cardiology | Dora De La Torre | | | 2020 | Visit | | CAR[address]INE Mendez [address] | | | | | | [address] | | | | | | [place] [address] | | | | | | [phone] | | | | | | | [...] | [employer] - | | 04/02/ | [id number] | | 5ccImplanted: Qty: 1 on | | Spine | MEDT | | 2019 | | | 07/02/2014 by Frandy Teresa | | Lumbar | | | | /[id number] | | A DO at [facility] | | | | | | 6-020 | | [facility] | | | | | | / | + +------+--------+ +--------+--------+--------+ | Graft Infuse Bone Kit Xxs - | | N/A: | [facility] | | 01/21/ | [id number] | | [id number]: Qty: 1 on | | Spine | DANEK - DIV | | 2014 | 0 / | | 07/02/2014 by Frandy Teresa | | Lumbar | [employer] | | | /[id number] | | A, DO at [facility] | | | - SFDK | | | 06AAH | | [facility] | | | | | | | + +------+--------+ +--------+--------+--------+ | Imp Spn Spcr Cpstn 8x26mm - | | N/A: | [facility] | | 01/11/ | [id number] | | [id number]: Qty: 1 on | | Spine | DANEK - DIV | | 2 | 6 / | | 07/02/2014 by Frandy Teresa | | Lumbar | [employer] | | | /[id number] | | DO Ronak at [facility] | | | - SFDK | | | 928 | | [facility] | | | | | | | + +------+--------+ +--------+--------+--------+ | Set Scrw Ns G5 Brk Off Ti | | N/A: | [facility]OR | | | [id number] | | 4.75 - [id number]: | | Spine | DANEK - DIV | | | 0 / / | | Qty: 4 on 07/02/2014 by | | Lumbar | [employer] | | | | | Frandy Teresa DO at [facility] | | | - SFDK | | | | | [facility] | | | | | | | | [place] | | | | | | | + +------+--------+ +--------+--------+--------+ | RodImplanted: Qty: 1 on | | N/A: | | | | [id number] | | 07/02/2014 by Frandy Teresa | | Spine | | | | 540 / | | A, DO at [facility] | | Lumbar | | | | / | | [facility] | | | | | | | + +------+--------+ +--------+--------+--------+ | RodImplanted: Qty: 1 on | | N/A: | MEDTROL - | | | [id number] | | 07/02/2014 by Frandy Teresa | | Spine | MDTR | | | 545 / | | A, DO at [facility] | | Lumbar | | | | / | | [facility] | | | | | | | + +------+--------+ +--------+--------+--------+ | Screw 7.5x50mm Sextant - | | N/A: | [employer] - | | | [id number] | | [id number]: Qty: 1 on | | Spine | MEDT | | | [id number] | | 07/02/2014 by Frandy Teresa | | Lumbar | | | | / / | | A, DO at [facility] | | | | | | | | [facility] | | | | | | | + +------+--------+ +--------+--------+--------+ | Cannulated ScrewImplanted: | | N/A: | MEDTROL - | | | [id number] | | Qty: 1 on 07/02/2014 by | | Spine | MDTR | | | [id number] | | Frandy Teresa DO at [facility] | | Lumbar | | | | / / | | [facility] | | | | | | | | CENTER | | | | | | | + +------+--------+ +--------+--------+--------+ | Cannulated ScrewImplanted: | | N/A: | [employer] - | | | [id number] | | Qty: 1 on 07/02/2014 by | | Spine | MEDT | | | [id number] | | Frandy Teresa DO at [facility] | | Lumbar | | | | / / | | [facility] | | | | [...] | | | | | BRETT DONNELLY (2040) on | | | | | | [...] +--------+ +---------+--------+ | MEDICARE | MEDICA | [id number] | 02/22/20 | [phone] | | Medica | | | RE | | 09-Pre | 5 | | re | | | PART A | | sent | | | | | | AND B | | | | | | + +--------+ +--------+ +---------+--------+ | MEDICARE | MEDICA | [id number] | 02/22/20 | [phone] | | Medica [...] | | 5 | [phone] | [address] [place], [place] | | | [place] | | | 1 (Home) | [address] | + +--------+ +--------+ + + | Cindy Arndt | Person | Self | [birth year] | [address] | | | al/Fam | | 1955 | [phone] | [address] [place], [place] | | | [place] | | | 1 (Home) | [address] | + +--------+ +--------+ + + Advance Directives + + + + + | Type | Date Recorded | Patient | Explanation | | | | Wheel Alignment Technician | | + + + + + | Power of | | | | | Rubber Calender Helper | | | | + + + [...]
--- OUTSIDE RECORDS SUMMARY | ~2020-05-21 | XMS | Encounter Summary ---
Demographics + + + | Address | [address] [facility] | | | [place] [address] | + + + | Home Phone [...] [place] | | | | | [address] | | + + + + + Care Team Providers + +------+ + | Care Migratory Farm Hand Name | Role | Phone | [...] | 2018 | | CARDIOLOGY [place] Abad, Superintendent Service | anxious about urgent | | | | [address] | | reports. ) | | | | [place] | | | | | | [address] | | | | | | [phone] | | | +--------+ + + + [...] Miscellaneous Notes Telephone Encounter - Ashley Chávez, Superintendent Service - 08/14/2019 9:16 AM Seferino foster called [...] for the time being. Patient stated understanding. JDW:CANDLE WRAPPER-AAMA. [facility] umented in this encounter Plan [...] | | | | | [place] [address] | | | | | | [phone] | | | | | | | | +--------+ + + + + | 08/28/ | Office | Cardiology | Dora De La Torre | | | 2020 | Visit | | CAROLINE Mendez [address] | | | | | | [address] | | | | | | [place] [address] | | | | | | [phone] | | | | | | | | +--------+ + + + + documented as of this encounter Visit Diagnoses Not on filedocumented in this encounter"
--- OUTSIDE RECORDS SUMMARY | ~2020-05-21 | XMS | Encounter Summary ---
Demographics + + + | Address | [address] [facility] | | | [place] [address] | + + + | Home Phone [...] [place] | | | | | [address] | | + + + + + Care Team Providers + +------+ + | Care Marketing Regional Consultant Name | Role | Phone | [...] | 08/05/ | Telephone | [facility] [place] | Frandy Teresa, | Other | | 2013 | | NEUROSURGERY [address] | DO [address] | | | | | [address] | [address] [place], [place] | | | | | [place], [place] | [id number] | | | | | [address] | | | | | | [phone] | | | +--------+ + + + [...] [address] | | | | | | [place] [address] | | | | | | [phone] | | | | | | | | +--------+ + + + + | 08/28/ | Office | Cardiology | Dora De La Torre | | | 2019 | Visit | | CAROLINE Mendez [address] | | | | | | [address] | | | | | | [place] [address] | | | | | | [phone] | | | | | | | | +--------+ + + + + documented as of this encounter Visit Diagnoses Not on filedocumented in this encounter"
--- OUTSIDE RECORDS SUMMARY | ~2020-05-21 | XMS | Encounter Summary ---
Demographics + + + | Address | [address] [address] [facility] | | | [place] [address] | + + + | Home Phone [...] [place] | | | | | [address] | | + + + + + Care Team Providers + +------+ + | Care Stock Plan Administrator Name | Role | Phone | [...] | | | [address] | [place] [address] | | | | | [place] [address] | | | | | | [phone] | | | +--------+ + + + [...] | | | | | | [place] [address] | | | | | | [phone] | | | | | | | | +--------+ + + + + | 08/28/ | Office | Cardiology | Dora De La Torre | | | 2019 | Visit | | [address] | | | | | | [address] | | | | | | [place] [address] | | | | | | [phone] | | | | | | | [...]
--- OUTSIDE RECORDS SUMMARY | ~2020-05-21 | XMS | Encounter Summary ---
Demographics + + + | Address | [address] [facility] [facility] [address] | | | [place] [address] | + + + | Home Phone [...] [place] | | | | | [address] | | + + + + + Care Team Providers + +------+ + | Care Digital Composer Name | Role | Phone | + [...] | | | spondylolist | | [address] | | | | | hesis | | [place], | | | | | Spinal | | [place] [address] | | | | | stenosis, | | Phone: | | | | | lumbar | | [phone] | | | | | region, | | Fax: | | | | | without | | [phone] | | | | | neurogenic | [...] | | | | | | | IN [place] | | | | | | [...] | | | | | | [place] | | | | | | | [...] | | | | | | SEG IN | | | | | | | [...] | 07/02/ | Hospital | [facility] | Frandy Teresa, | Spinal stenosis, | | 2013 | Encounter | MED CTR XRAY [address] | DO [address] | lumbar region, | | | | [place] | [address] [place], [place] | without neurogenic | | | | [place] [address] | [address] | claudication | | | | [phone] | | (Primary Dx) | +--------+ + [...] + + + +---------+ + + | Imlay-3 Fatty | Take 1,000 mg by | [...] | | | | | | [place] [address] | | | | | | [phone] | | | | | | | | +--------+ + + + + | 08/28/ | Office | Cardiology | Britt Dora | | | 2019 | Visit | | [address] | | | | | | [address] | | | | | | [place] [address] | | | | | | [phone] | | | | | | | [...]
--- OUTSIDE RECORDS SUMMARY | ~2020-05-21 | XMS | Encounter Summary ---
Demographics + + + | Address | [address] [facility] [address] | | | [place] [address] | + + + | Home Phone [...] [place], [place] | | | | | [address] | | + + + + + Care Team Providers + +------+ + | Care Personnel Security Assistant Name | Role | Phone | + +------+ + PCP | Unavailable | + +------+ + Encounter Details +--------+ + + + + | Date | Type | Department | Care Team | Description | +--------+ + + + + | 02/24/ | Hospital | [facility] | | | | 1997 - | Encounter | MED CTR GENERIC PSY | | | | | | CONV DEPT [address] | | | | 02/26/ | | Bertha [place], | | | | 1997 | | [place] [address] | | | | | | [phone] | | | +--------+ + + + [...] [address] | | | | | | [place] [address] | | | | | | [phone] | | | | | | | | +--------+ + + + + | 08/28/ | Office | Cardiology | Dora De La Torre | | | 2019 | Visit | | [address] | | | | | | [address] | | | | | | [place] [address] | | | | | | [phone] | | | | | | | | +--------+ + + + + documented as of this encounter Visit Diagnoses Not on filedocumented in this encounter"
--- OUTSIDE RECORDS SUMMARY | ~2020-05-21 | XMS | Encounter Summary ---
Demographics + + + | Address | [address] [facility] [address] | | | [place] [address] | + + + | Home Phone [...] [place] | | | | | [address] | | + + + + + Care Team Providers + +------+ + | Care Linux Unix Engineer Name | Role | Phone | [...] + | 07/19/ | Telephone | [facility] | Frandy Teresa, | Appointment | | 2013 | | NEUROSURGERY [address] | DO [address] | | | | | [address] | [address] [place], [place] | | | | | [place], [place] | [id number] | | | | | [address] | | | | | | [phone] | | | +--------+ + + + [...] - 07/22/2014 8:09 AM Nakia from [facility] called back this morning to isamar mcarthure that she spoke with the patient again regarding this appointment and the patient would be ok with rescheduling to a time the following week. She just didn't want to make the trip down here right after she got back home to [place]. Janes can be reached at [phone] ectronically signed by Tiffani Humphrey at 07/22/2014 8:11 AM PDTTelephone Encounter - Lashawn Metzger - 07/19/2014 12:56 PM PDTSuarlen from [facility] called to confirm Cindy' s appointment for [...] | | | | | [place] [address] | | | | | | [phone] | | | | | | | | +--------+ + + + + | 08/28/ | Office | Cardiology | Dora De La Torre | | | 2019 | Visit | | [address] | | | | | | [address] | | | | | | [place] [address] | | | | | | [phone] | | | | | | | | +--------+ + + + + documented as of this encounter Visit Diagnoses Not on filedocumented in this encounter"
--- OUTSIDE RECORDS SUMMARY | ~2020-05-21 | XMS | Encounter Summary ---
Demographics + + + | Address | [address] [facility] [address] | | | [place] [address] | + + + | Home Phone [...] [place] | | | | | [address] | | + + + + + Care Team Providers + +------+ + | Care Deputy Court Name | Role | Phone | [...] + + | 07/24/ | Telephone | [facility] | Ashley Chávez | Other (Patient is | | 2018 | | CARDIOLOGY [place] Abad, Cleat Feeder | worried about paying | | | | [address] | | for monitor. ) | | | | [place] | | | | | | [address] | | | | | | [phone] | | | +--------+ + + + [...] Miscellaneous Notes Telephone Encounter - Ashley Chávez, Cleat Feeder - 07/24/2019 11:13 AM Seferino t says [...] gals to see what can be done. JDW:CANE BURNER-AAMA. [facility] umented in this encounter Plan [...] | | | | | | [place] [address] | | | | | | [phone] | | | | | | | | +--------+ + + + + | 08/28/ | Office | Cardiology | Dora De La Torre | | | 2019 | Visit | | [address] | | | | | | [address] | | | | | | [facility] [place] [address] | | | | | | [phone] | | | | | | | | +--------+ + + + + documented as of this encounter Visit Diagnoses Not on filedocumented in this encounter"
--- OUTSIDE RECORDS SUMMARY | ~2020-05-21 | XMS | Encounter Summary ---
Demographics + + + | Address | [address] [facility] [address] | | | [place] [address] | + + + | Home Phone [...] [place] | | | | | [address] | | + + + + + Care Team Providers + +------+ + | Care Betting Agency Counter Clerk Name | Role | Phone | [...] | SLEEP DISORDER [address] | [address] | | | | | [address] [place] | [place] | | | | | [place] [address] | [address] | | | | | [phone] | | | +--------+ + + + [...] last seen in our o [facility] on 04/30/2015. He did not cancel or [...] PA-C eleph one Encounter - Gail Cadet, Psychiatric Registered Nurse - 07/15/2016 8:37 AM PDTCalled to resched ule patient's no show appointment unable to contact all numbers are disconnected. Electronic ally signed by Gail Cadet Psychiatric Registered Nurse at 07/15/2016 8:37 AM PDTdocumented in this [...] [address] | | | | | | [place] [address] | | | | | | [phone] | | | | | | | | +--------+ + + + + | 08/28/ | Office | Cardiology | Dora De La Torre | | | 2019 | Visit | | [address] | | | | | | [address] | | | | | | [place] [address] | | | | | | [phone] | | | | | | | | +--------+ + + + + documented as of this encounter Visit Diagnoses Not on filedocumented in this encounter"
--- OUTSIDE RECORDS SUMMARY | ~2020-05-21 | XMS | Encounter Summary ---
Demographics + + + | Address | [address] [facility] [address] | | | [place] [address] | + + + | Home Phone [...] [place] | | | | | [address] | | + + + + + Care Team Providers + +------+ + | Care Salon Receptionist Name | Role | Phone | + [...] + + | 08/20/ | Documentati | [facility] | Katharine Moncada, | Other (urgent | | 2019 | on | CARDIOLOGY [place] | Technologist | report) | | | | [address] | | | | | | [place] | | | | | | [address] | | | | | | [phone] | | | +--------+ + + + [...] | | | | | [place] [address] | | | | | | [phone] | | | | | | | | +--------+ + + + + | 08/28/ | Office | Cardiology | Dora De La Torre | | | 2020 | Visit | | [address] | | | | | | [address] | | | | | | [place] [address] | | | | | | [phone] | | | | | | | | +--------+ + + + + documented as of this encounter Visit Diagnoses Not on filedocumented in this encounter"
--- OUTSIDE RECORDS SUMMARY | ~2020-05-21 | XMS | Encounter Summary ---
Demographics + + + | Address | [address] [facility] [address] | | | [place] [address] | + + + | Home Phone [...] [place] | | | | | [address] | | + + + + + Care Team Providers + +------+ + | Care Repair Operator Name | Role | Phone | [...] + | 05/13/ | Telephone | [facility] | Frandy Teresa, | Other | | 2013 | | NEUROSURGERY [address] | DO [address] | | | | | [address] | [address] [place], [place] | | | | | [place], [place] | [id number] | | | | | [address] | | | | | | [phone] | | | +--------+ + + + [...] | | | | | | [place] [address] | | | | | | [phone] | | | | | | | | +--------+ + + + + | 08/28/ | Office | Cardiology | Dora De La Torre | | | 2019 | Visit | | [address] | | | | | | [address] | | | | | | [place] [address] | | | | | | [phone] | | | | | | | | +--------+ + + + + documented as of this encounter Visit Diagnoses Not on filedocumented in this encounter"
--- OUTSIDE RECORDS SUMMARY | ~2020-05-21 | XMS | Encounter Summary ---
Demographics + + + | Address | [address] [address] [facility] [address] | | | [place] [address] | + + + | Home Phone [...] [place] | | | | | [address] | | + + + + + Care Team Providers + +------+ + | Care Supervisor Solder Making Name | Role | Phone | + +------+ + | Natalee Andersen NP | PCP | | + +------+ + Encounter Details +--------+ + + + + | Date | Type | Department | Care Team | Description | +--------+ + + + + | 09/27/ | Hospital | [facility] | Frandy Teresa, | Lumbar spondylosis; | | 2013 | Encounter | MED CTR XRAY [address] | DO [address] | S/P lumbar fusion | | | | [place] | [address] [place], [place] | | | | | [place] [address] | [address] | | | | | [phone] | | | +--------+ + + + [...] [address] | | | | | | [place] [address] | | | | | | [phone] | | | | | | | | +--------+ + + + + | 08/28/ | Office | Cardiology | Dora De La Torre | | | 2019 | Visit | | [address] | | | | | | [address] | | | | | | [place] [address] | | | | | | [phone] | | | | | | | [...] + | MISCELLANEOUS LAB | | | [phone] | + +---------+ + + | MISCELANIOUS LAB | | | [phone] | + +---------+ + + documented in this encounter Visit Diagnoses + + | Diagnosis | + + | Lumbar spondylosis Lumbosacral spondylosis without myelopathy | + + | S/P lumbar fusion Arthrodesis status | + + documented in this encounter"
--- OUTSIDE RECORDS SUMMARY | ~2020-05-21 | XMS | Encounter Summary ---
Demographics + + + | Address | [address] [facility] [address] | | | [place] [address] | + + + | Home Phone [...] [place] | | | | | [address] | | + + + + + Care Team Providers + +------+ + | Care Vending Supervisor Name | Role | Phone | [...] + + | 08/08/ | Telephone | [facility] | Ashley Chávez | Other (Questions | | 2019 | | CARDIOLOGY [place] Abad, Hepatologist | about coverage. ) | | | | [address] | | | | | | [place] | | | | | | [address] | | | | | | [phone] | | | +--------+ + + + [...] Miscellaneous Notes Telephone Encounter - Ashley Chávez, Hepatologist - 08/08/2019 10:58 AM Seferino foster called and wanted to know if her monitor needed to be AUTHORIZED. I asked Danelle and she said that because she had medicare part A and B, it does not need kayode or auth. I told this information to the patient, patient stated understanding. JKASSIE:WAGON DRILL OPERATOR-AAMA. [facility] umphilipp in this encounter Plan of Treatment +--------+ [...] [address] | | | | | | [place] [address] | | | | | | [phone] | | | | | | | | +--------+ + + + + | 08/28/ | Office | Cardiology | Dora De La Torre | | | 2019 | Visit | | [address] | | | | | | [address] | | | | | | [place] [address] | | | | | | [phone] | | | | | | | | +--------+ + + + + documented as of this encounter Visit Diagnoses Not on filedocumented in this encounter"
--- OUTSIDE RECORDS SUMMARY | ~2020-05-21 | XMS | Encounter Summary ---
Demographics + + + | Address | [address] [facility] [address] | | | [place] [address] | + + + | Home Phone [...] [place] | | | | | [address] | | + + + + + Care Team Providers + +------+ + | Care Web Site Designer Name | Role | Phone | [...] | | | spondylolist | | [address] | | | | | hesis | | [place], | | | | | Spinal | | [place] [address] | | | | | stenosis, | | Phone: | | | | | lumbar | | [phone] | | | | | region, | | Fax: | | | | | without | | [phone] | | | | | neurogenic | [...] + | 07/02/ | Surgery | [facility] | Frandy Teresa, | MIS L5-S1 | | 2013 | | MED CTR OR INTRA OP | DO [address] | TRANSFORAMINAL | | | | [address] | [address] [place], [place] | LUMBAR INTERBODY | | | | [place] | [id number] | FUSION | | | | [address] | | | | | | [phone] | | | +--------+---------+ + + + [...] documented in this encounter Discharge Summaries Frandy Tersea DO - 07/05/2014 1:21 PM PDTFormatting of [...] Take 15 mg by mouth nightl y. Elgin-3 Fatty Acids (FISH OIL CONCENTRATE) 1000 MG [...] Lynn PA-C - 07/04/2014 7:43 AM PDT [facility] PROGRESS NOTE Pt. Name/Age/: Cinyd Arndt 58 y.o. 1955 Med. Record Number: [id number] Date of admission: 07/02/2014 Subjective: The patient [...] home medications. D/C plan: Home tomorrow with [facility]. D/c mari drain and riley cath today. D/c yacht hand. Patient Active Problem List Diagnosis LUMBAR DISC [...] by: Chris Nicole, 07/04/2014 7:45 [facility] Chris Lynn PA-C - 07/03/2014 7:13 AM PDT . [facility] PROGRESS NOTE Pt. Name/Age/: Cindy Arndt 58 y.o. 1955 Med. Record Number: [id number] Date of admission: 07/02/2014 Subjective: The patient [...] Electronically signed by: Chris Nicole, 07/03/2014 7:13 [facility] on Smith, KRIS - 07/03/2014 [...] signed by: Frandy Teresa DO, 07/02/2014 11:15 [facility] by Frandy Teresa DO at 06/2014 11:15 AM PDTDreyFrandy tim DO - 07/02/2014 11:15 AM [id number] [facility], [address] [place] [address] FAX: NEUROSURGERY HISTORY AND PHYSICAL EXAMINATION CHIEF [...] Take 15 mg by mouth nigh tlgaston. Elgin-3 Fatty Acids (FISH OIL CONCENTRATE) 1000 MG [...] has no apparent deficits with short or salvage determiner memory. CRANIAL NERVES: II: Acuity is intact. [...] Intrinsics 5 5 Ulnar Intrinsics 5 5 Dsp Engineer Strength 5 5 Hip Flexion 5 4* [...] documented in this en counter Procedure Notes [facility] - 07/12/2014 12:00 AM PDT 14 1:45 PM [facility] - 07/04/2014 12:00 AM PDT [facility] - 07/02/2014 12:00 AM PDT documented in this encounter Miscellaneous Notes Plan of Care - [facility] - 07/12/2014 12:00 AM PDT iscellaneous - [facility] 07/12/2014 12:00 AM PDTElec tronically signed by Mariah Schulte at 07/12/2014 1:45 PM PDTMiscellaneous - [facility] - 07/12/2014 12:00 AM PDT i scellaneous - [facility] - 07/12/2014 12:00 AM PDT lan [...] and I will be going to a 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 as I have 16 steps to my [...] TBD) Equipment Recommendations: tub bench;hand held shower head;fitness coach;comfort height toilet ( pt. has all necessary [...] might be different fro m the original. CORRECTION FACILITY TRANSFER ORDERS Patient Name: Cindy Arndt Patient : 1955 Gender: female Date of Admission: 07/02/2014 Date of Discharge: 07/05/2014 Admitting Provider: Frandy Teresa DO Discharging Provider: Chris Nicole PA-C Consultants: none PCP: Natalee Andersen [facility] transferring to: [facility] Provider after transfer: PCP and Dr. Frandy Teresa CODE STATUS: [x] Attempt CPR [] Do not resuscitate If patient is pulseless and not breathing, RN/FARM APPRAISER may pronounce . Advanced Directives included: [] [...] for this patient. Diet: [] As tolerated CYCLE DIRECTOR may upgrade or downgrade diet as condition Indicates. [x] RN may downgrade diet as indicated. Type: [] Continue current diet of: Diet and Supplements Diet DIET CONSISTENT CARBOHYDRATE Number of Occurrences: -1 Days [] Other: Consistency/Precautions: [] Whole [] Thin Liquids [] Cut-up [] [place] Thick [] Advanced Chopped [] Honey Thickened [] Chopped [] Advanced Ground [] 1:1 feedings [] Ground/Pureed [] Other: Tube Feedings: [] PEG [] GT [] JT [] NGT [] Formula type: (Firefighter Marine may change/substitute if indicated). [] Continuous Rate: [...] & Management for: ____same as above [] CYCLE DIRECTOR Evaluation &Management for: [] Other: Wound/Skin Care: [...] tablet 1-2 tablets Take 1-2 tablets by [facility] every 4 hours as needed [...] Take 15 mg by mouth ni ghtly. Elgin-3 Fatty Acids (FISH OIL CONCENTRATE) 1000 MG [...] Chris Nicole PA-C, certify that post hospital detention care is medically nec essary on a continuing basis for any of the conditions for which he/she received care during this hospitalization. Check one: [x] Skilled [] Intermediate Additional Orders/Instructions: Physician's signature:__Chris Nicole PA-C 07/05/2014 13:18 [facility] USE ONLY: [] [...] tolerate progressive walking and doing stairs du [facility] stay due to multiple pain c/o. Attempted to see pt. 1145, however had just rec eived pain medication and requested PT return, SPL 9/10. At 1205 pt contacted PT for assist OOB due to left LE spasms and need for position change. Sitting at EOB on arrival, INDUSTRIAL AERIAL INSTALLER pres ent. Pt. donned LSO brace, stood [...] of endurance. When patient is walking in [facility] with a regular FWW she has to stop frequently and states she feels very weak, like sh e may fall. Patient lives alone. Outpatient prescriptions are filled at [facility] in [facility]. Electronically signed by: Franca Narvaez RN 07/05/2014 10:43 lan of Adilene Layne Rivers - 07/05/2014 10:39 AM PDTFaxed referral to Gabriela Stout and Lidia Tran. [place] : [phone] and [place]: [phone] Electronically signed by: Layne Collado 07/05/2014 10:40 [...] TBD) Equipment Recommendations: tub bench;hand held shower head;fitness coach;comfort height toilet ( pt. has all necessary equipment) Planned Interventions: ADL retraining;transfer training Patient Status/Goals Reflects last filed data of patient status; may be from multiple contributors. Grooming: Status: did not occur today Assist: Utilizes: STG: Status: New Goal:modified independent LTG: Status: Goal: UE Dressing: Status: SBA Assist: Utilizes: STG: Status: Goal: LTG: Status: Goal: LE Dressing: Status: SBA Utilizes: fitness coach STG: Status: New Goal: modified independent LTG: [...] bed mobil ity. Pt has been using EDUCATIONAL RESOURCE COORDINATOR and pain pills during the night. Zofran [...] by herself in a small apartment in [place]. Patient states she has her apartment set [...] to come from [facility] [place]. She states the Said she might benefit fr Home Health upon discharge. She would like me to contact [facility] to giv e them a heads up. I called and spoke to Summer at [facility] , told her patients PCP i [...] Pt. resting in bed on arrival, used EDUCATIONAL RESOURCE COORDINATOR x 2 during session. SPL 5/10. Pt. hoping to urinate keypunch operator to straight cath. Sidelying to sit [...] TBD) Equipment Recommendations: tub bench;hand held shower head;fitness coach;comfort height toilet ( pt. has all necessary [...] & Review . Outcome: Progressing Pt using EDUCATIONAL RESOURCE COORDINATOR and PO pain pills, c/o numbness on [...] and on a continuous oximeter for her EDUCATIONAL RESOURCE COORDINATOR. She was unable to do her IS because o f the medications. She has the IS at bedside with a goal of 2400. She did not require additi onal respiratory care throughout the evening. p Note - Frandy Teresa, DO - 07/02/2014 2:25 PM PDTDATE: 07/02/2014 SURGEON: Frandy Teresa MD. ENVIRONMENTAL SAMPLING TECHNICIAN: ZANE Oh PREOPERATIVE DIAGNOSES 1. Spondylolisthesis, [...] x 26 mm Capstone PEEK cage from [employer] was chosen. It was filled with [employer] [...] 07/02/2014 2:22 PM PDT Brief Operative Note iCndy Arndt 58 y.o. female 1955 [id number] Proc. Date 07/02/2014 Preop Dx Spondylolisthesis L5-S1 Postop Dx same Procedure Procedure(s):MIS L5-S1 TRANSFORAMINAL LUMBAR INTERBODY FUSION Anesthesia General Surgeon Frandy Teresa DO Cold Rolling Supervisor ZANE Oh EBL 100 mL Findings Findings consistent with scheduled procedure. No other abnormalities found. Complications none Specimens * No specimens in log * Drains Electronically signed by: Frandy Teresa DO 07/02/2014 14:22 [facility] documented in this en counter [...] [address] | | | | | | [place] [address] | | | | | | [phone] | | | | | | | | +--------+ + + + + | 08/28/ | Office | Cardiology | Dora De La Torre | | | 2019 | Visit | | [address] | | | | | | [address] | | | | | | [place] [address] | | | | | | [phone] | | | | | | | [...] + | [facility] | [address] | [place], [place] | [phone] | | [facility] | | [address] | | | - LABORATORY | | | | + + + + + | [facility] | [address] | [place] | | | [facility] | | [address] [place] [address] | | | - LABORATORY | | [...] + | [facility] | [address] | [place] | [phone] | | [facility] | | [address] | | | - LABORATORY | | | | + + + + + | [facility] | [address] | [place] | | | [facility] | | [address], [facility] | [...] | | POC | | | [facility] | | | | | [...] + | [facility] | [address] | [place] | [phone] | | [facility] | | [address] | | | - LABORATORY | | | | + + + + + | [facility] | [address] | [place], [place] | | | [facility] | | [address] | | [...] + | [facility] | [address] | [place], [place] | [phone] | | [facility] | | [address] | | | - LABORATORY | | | | + + + + + | [facility] | [address] | [place], [place] | | | [facility] | | [address], [facility] | [...] [address] | [place] | [phone] | | [facility] | | [address] | | | - LABORATORY | | | | + + + + + | [facility] | [address] | [place] | | | [facility] | | [address], [facility] | [...] + | [facility] | [address] | [place] | [phone] | | [facility] | | [address] | | | - LABORATORY | | | | + + + + + | [facility] | [address] | [place], [place] | | | [facility] | | [address], [facility] | [...] [address] | [place] | [phone] | | [facility] | | [address] | | | - LABORATORY | | | | + + + + + | [facility] | [address] | [place] | | | [facility] | | [address] | | [...] + | [facility] | [address] | [place] | [phone] | | [facility] | | [address] | | | - LABORATORY | | | | + + + + + | [facility] | [address] | [place] | | | [facility] | | [address], [facility] | [...] + | [facility] | [address] | [place] | [phone] | | [facility] | | [address] | | | - LABORATORY | | | | + + + + + | [facility] | [address] | [place], [place] | | | [facility] | | [id number] | | | - [...] | of hardware for posterior fusion from Z4hsgmbam S1 with interbody hardware at L5-S1. The [...] + | MISCELLANEOUS LAB | | | [phone] | + +---------+ + + | MISCELANIOUS LAB | | | [phone] | + +---------+ + + POC Glucose [...] + | [facility] | [address] | [place], [place] | [phone] | | [facility] | | [address] | | | - LABORATORY | | | | + + + + + | [facility] | [address] | [place] | | | [facility] | | [address] [place] [address] | | | - LABORATORY | | [...] + | [facility] | [address] | [place] | [phone] | | [facility] | | [address] | | | - LABORATORY | | | | + + + + + | [facility] | [address] | [place] | | | [facility] | | [address], [facility] | [...] + | [facility] | [address] | [place] | [phone] | | [facility] | | [address] | | | - LABORATORY | | | | + + + + + | [facility] | [address] | [place] | | | [facility] | | [address], [facility] | [...] + | [facility] | [address] | [place], [place] | [phone] | | [facility] | | [address] | | | - LABORATORY | | | | + + + + + | [facility] | [address] | [place], [place] | | | [facility] | | [address] | | [...] [address] | [place] | [phone] | | [facility] | | [address] | | | - LABORATORY | | | | + + + + + | [facility] | [address] | [place] | | | [facility] | | [address], [facility] | [...] [place] | | | [facility] | | [address] | | | - BLOOD BANK | [...] mLs | | Surgical | | 1:200,000 0.25-1:079548 % | | 14 12:42 | | [...]
--- OUTSIDE RECORDS SUMMARY | ~2020-05-21 | XMS | Encounter Summary ---
Demographics + + + | Address | [address] [facility] [address] | | | [place] [address] | + + + | Home Phone [...] [place] | | | | | [address] | | + + + + + Care Team Providers + +------+ + | Care Data Center Consultant Name | Role | Phone | [...] + + | 08/09/ | Documentati | [facility] | Katharine Moncada, | Other (end of study) | | 2019 | on | CARDIOLOGY [place] | Technologist | | | | | [address] | | | | | | [place], [place] | | | | | | [address] | | | | | | [phone] | | | +--------+ + + + [...] Technologist - 08/09/2019 11:59 PM PDT Cardiac Saddle Stitching Machine Operator Date of Event Monitor: 08/09/19 Referring [...] [address] | | | | | | [place] [address] | | | | | | [phone] | | | | | | | | +--------+ + + + + | 08/28/ | Office | Cardiology | Dora De La Torre | | | 2019 | Visit | | [address] | | | | | | [address] | | | | | | [place] [address] | | | | | | [phone] | | | | | | | | +--------+ + + + + documented as of this encounter Visit Diagnoses Not on filedocumented in this encounter"
--- OUTSIDE RECORDS SUMMARY | ~2020-05-21 | XMS | Encounter Summary ---
Demographics + + + | Address | [address] [facility] [address] | | | [place] [address] | + + + | Home Phone [...] [place] | | | | | [address] | | + + + + + Care Team Providers + +------+ + | Care Incident Coordinator Name | Role | Phone | [...] | 09/26/ | Refill | [facility] | Frandy Teresa, | Medication Refill | | 2013 | | NEUROSURGERY [address] | DO [address] | | | | | [facility] | [address] [place], [place] | | | | | [place], [place] | [id number] | | | | | [address] | | | | | | [phone] | | | +--------+--------+ + + + [...] will come today. [facility] signed by Megan Schreiber RN at 09/26/2014 [...] | | | | [place] [address] | | | | | | [phone] | | | | | | | | +--------+ + + + + | 08/28/ | Office | Cardiology | Dora De La Torre | | | 2019 | Visit | | [address] | | | | | | [address] | | | | | | [place] [address] | | | | | | [phone] | | | | | | | | +--------+ + + + + documented as of this encounter Visit Diagnoses Not on filedocumented in this encounter"
--- OUTSIDE RECORDS SUMMARY | ~2020-05-21 | XMS | Encounter Summary ---
Demographics + + + | Address | [address] [facility] [address] | | | [place] [address] | + + + | Home Phone [...] [place] | | | | | [address] | | + + + + + Care Team Providers + +------+ + | Care Security Director Name | Role | Phone | [...] | Radiology | [facility] | [facility] | | | | [facility] | TELEGRAPHIC TYPEWRITER OPERATOR CHIEF [address] | [address] | | | | | fibrillation | [address] | [place] | | | | | History of | [address] | [place], [place] | | | | | stroke | [place], [place] | [address] | | | | | Sinus | [address] | Phone: | | | | | tachycardia | Phone: | [phone] | | | | | by | [phone] | Fax: | | | | | electrocardi | Fax: | [phone] | | | | | ogram New | [phone] | | | | | | onset [...] + + | 01/09/ | Office | [facility] | Roxannmiguel ángelDora | History of atrial | | 2020 | Visit | CARDIOLOGY [place] | [address] | fibrillation | | | | [address] | [address] | (Primary Dx); Benign | | | | [address] | [place] [address] | essential HTN; | | | | [place], [place] | [phone] | History of | | | | [address] | | hypothyroidism; | | | | [phone] | | Stress | | | | [...] an urgent Echo to be done at [facility] to follow up on new left bundle [...] of fatigue and shortness of breath. 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 She reports after she lost 160 pounds with a gastric sleeve that she was retested for sle ep apnea 2 years ago, and told the results negative, but has not had CPAP for 3 years She has previously seen Dr. Garland in [place], and different sleep provider in [facility] when lived over there. She [...] thirst or hunger. Psychiatric/Behavioral: Bipolar/Schizophrenia. Tx'd by [employer] Vaccines: Current on flu vaccine: 2019 Current on pneumonia vaccine:PPSV 23 05/29/2013 Habits/Social : Denies history of smoking. Denies EtOH use. Denies recreational or illici t drug use. Exercises sporadically. Lives in [place] . Outpatient Medications Prior to Visit Medication [...] by mouth nightly. Blood Glucose Monitoring Suppl (ActiveEon VERIO FLEX SYSTEM) w/Device KIT by Does [...] bundle bran ch block Rate 74 bpm, NV 204 ms, QRS 138 ms, QTC 488 ms, tracing personally reviewed by me and Dr. Peterson. compared to EKG performed in November, new left bundle branch block, lead III has lower voltage QRS also in aVL and aVF, and improved voltage to anterior leads and rate i s better controlled. LABS Labs: 12/26/2018: ( [facility])CMP: Sodium 139, potassium 4.2, chloride 99, BUN 10, creatinine 0. 7, BNP 28. CBC: WBC 7.8, hemoglobin 14.3, hematocrit 42.7, platelets 214 Labs: 09/28/2019:( [facility]) CBC: WBC 7.8, hemoglobin 14.9, hematocrit 43.8, platelets 221. C MP: Sodium 132, potassium 4.2, chloride 95, AST 76, ALT 76, alk phos 134 Labs: 10/11/2019:( [facility]) CBC: WBC 6.7, RBC 4.97, hemoglobin 15.2, hematocrit 44.7, platel ets 200. CMP: Glucose 385, BUN 7, creatinine 0.62, GFR 97, sodium 131, potassium 4.1, chlor kelby 95, albumin 4.3, total bilirubin 0.6, AST 75, ALT 73, alk phos 144. Thyroid: TSH 4.27 Labs: 10/12/2020:( [facility]) CBC: WBC 7, RBC 4.93, hemoglobin [...] and reviewed her EKG results with her elevator operator, Dr. Peterson, who is in the cli vickie today, and the plan is to get an updated echo to evaluate her for any new wall motion ab normalities. If she has any wall motion abnormalities, she will need to have further evalua tion for ischemic heart disease in [place] such as a stress test or angiogram I reviewed her EKG with her, and discussed this plan with her. The Echo will be ordered on an urgent basis, is currently a restriction on all nonurgent testing at [facility] . She was agreeable to this plan [...] continuity of care purp ose Preston [facility] Cardiology 01/10/2020 docume nted in this [...] [address] | | | | | | [place] [address] | | | | | | [phone] | | | | | | | | +--------+ + + + + | 08/28/ | Office | Cardiology | Dora De La Torre | | | 2019 | Visit | | [address] | | | | | | [address] | | | | | | [place] [address] | | | | | | [phone] | | | | | | | [...] | | | | | | [place] ([id number]) on | | | | | | [...]
--- OUTSIDE RECORDS SUMMARY | ~2020-05-21 | XMS | Encounter Summary ---
Demographics + + + | Address | [address] [address] [facility] [address] | | | [place] [address] | + + + | Home Phone [...] [place] | | | | | [address] | | + + + + + Care Team Providers + +------+ + | Care Assorter Laundry Name | Role | Phone | + [...] [id number] | | | | | | [place], [place] | | | | | | [address] | | | | | | [phone] | | | +--------+ + + + [...] [facility] | [address] | [place] [address] | | | PATHOLOGY | [address] [...] Re | | | | | | [phone] | | | | + + + + + + + + | Specimen | + + | | + + + + + + + | Performing | Address | City/State/Zipcode | Phone Number | | Organization | | | | + + + + + | [facility] | [address] | [place] [address] | | | PATHOLOGY | [address] [...] Re | | | | | | [phone] | | | | + + + + + + + + | Specimen | + + | | + + + + + + + | Performing | Address | City/State/Zipcode | Phone Number | | Organization | | | | + + + + + | [facility] | [address] | [place] [address] | | | PATHOLOGY | [address] [...] Re | | | | | | [address] | | | | + + + + + + + + | Specimen | + + | | + + + + + + + | Performing | Address | City/State/Zipcode | Phone Number | | Organization | | | | + + + + + | [facility] | [address] | [place] [address] | | | PATHOLOGY | [address] [...] Re | | | | | | [address] | | | | + + + + + + + + | Specimen | + + | | + + + + + + + | Performing | Address | City/State/Zipcode | Phone Number | | Organization | | | | + + + + + | [facility] | [address] | [place] [address] | | | PATHOLOGY | [address] | | | + + + + + documented in this encounter Visit Diagnoses Not on filedocumented in this encounter"
--- OUTSIDE RECORDS SUMMARY | ~2020-05-21 | XMS | Encounter Summary ---
Demographics + + + | Address | [address] [facility] [address] [facility] | | | [place] [address] | + + + | Home Phone [...] [place] | | | | | [address] | | + + + + + Care Team Providers + +------+ + | Care Bicycle Repairer Name | Role | Phone | [...] | | | | | [address] | [address] | | | | | [place] [address] | | | | | | [phone] | | | +--------+ + + + [...] + + + +---------+ + + | Athena-3 Fatty | Take 1,000 mg by | [...] | | | | | [place] [address] | | | | | | [phone] | | | | | | | | +--------+ + + + + | 08/28/ | Office | Cardiology | Dora De La Torre | | | 2020 | Visit | | [address] | | | | | | [address] | | | | | | [place] [address] | | | | | | [phone] | | | | | | | | +--------+ + + + + documented as of this encounter Visit Diagnoses Not on filedocumented in this encounter"
--- OUTSIDE RECORDS SUMMARY | ~2020-05-21 | XMS | Encounter Summary ---
Demographics + + + | Address | [address] [facility] | | | [place] [address] | + + + | Home Phone [...] [place] | | | | | [address] | | + + + + + Care Team Providers + +------+ + | Care Turnaround Planner Name | Role | Phone | [...] Transcriptions | + + | Interface, Director Career Services In - 11/04/2006 3:03 AM PST | | [address] | | [place], [place] [address] [facility] and | | ClinicsOPERATION RECORDMed Rec No.: [...] skin retractor was put in place. The [place] elevators wereused to separate the | | [...]
--- OUTSIDE RECORDS SUMMARY | ~2020-05-21 | XMS | Encounter Summary ---
Demographics + + + | Address | [address] [facility] | | | [place] [address] | + + + | Home Phone [...] [place], [place] | | | | | [address] | | + + + + + Care Team Providers + +------+ + | Care Customer Care Team Coach Name | Role | Phone | + +------+ + PCP | Unavailable | + +------+ + Encounter Details +--------+ + + + + | Date | Type | Department | Care Team | Description | +--------+ + + + + | 01/06/ | Hospital | [facility] | | | | 1992 | Encounter | MED CTR LABORATORY | | | | | | [address] | | | | | | [place] | | | | | | [address] | | | | | | [phone] | | | +--------+ + + + [...] | | | | | [place] [address] | | | | | | [phone] | | | | | | | | +--------+ + + + + | 08/28/ | Office | Cardiology | Dora De La Torre | | | 2020 | Visit | | [address] | | | | | | [address] | | | | | | [place] [address] | | | | | | [phone] | | | | | | | | +--------+ + + + + documented as of this encounter Visit Diagnoses Not on filedocumented in this encounter"
--- OUTSIDE RECORDS SUMMARY | ~2020-05-21 | XMS | Encounter Summary ---
Demographics + + + | Address | [address] [facility] | | | [place] [address] | + + + | Home Phone [...] [place] | | | | | [address] | | + + + + + Care Team Providers + +------+ + | Care Law Clerk Name | Role | Phone | [...] + | 07/01/ | Telephone | [facility] | Frandy Teresa, | Other (Surgery ) | | 2013 | | NEUROSURGERY [address] | DO [address] | | | | | [address] | [address] [place], [place] | | | | | [place], [place] | [id number] | | | | | [address] | | | | | | [phone] | | | +--------+ + + + [...] [address] | | | | | | [place] [address] | | | | | | [phone] | | | | | | | | +--------+ + + + + | 08/28/ | Office | Cardiology | Dora De La Torre | | | 2019 | Visit | | [address] | | | | | | [address] | | | | | | [place] [id number] | | | | | | [phone] | | | | | | | | +--------+ + + + + documented as of this encounter Visit Diagnoses Not on filedocumented in this encounter"
--- OUTSIDE RECORDS SUMMARY | ~2020-05-21 | XMS | Encounter Summary ---
Demographics + + + | Address | [address] [facility] [address] [facility] | | | [place] [address] | + + + | Home Phone [...] [place] | | | | | [address] | | + + + + + Care Team Providers + +------+ + | Care Literacy Education Professor Name | Role | Phone | + +------+ + | Natalee Andersen NP | PCP | | + +------+ + Encounter Details +--------+ + + + + | Date | Type | Department | Care Team | Description | +--------+ + + + + | 06/26/ | Hospital | [facility] | Heather Cordero PT | | | 2014 | Encounter | MED CTR ACUTE | [address] | | | | | PHYSICAL THERAPY | [place] | | | | | [address] | [address] | | | | | [place] [address] | | | | | | [phone] | | | +--------+ + + + [...] + + + +---------+ + + | [place]-3 Fatty | Take 1,000 mg by [...] | | | | | [place] [address] | | | | | | [phone] | | | | | | | | +--------+ + + + + | 08/28/ | Office | Cardiology | Dora De La Torre | | | 2020 | Visit | | [address] | | | | | | [address] | | | | | | [place] [address] | | | | | | [phone] | | | | | | | | +--------+ + + + + documented as of this encounter Visit Diagnoses Not on filedocumented in this encounter"
--- OUTSIDE RECORDS SUMMARY | ~2020-05-21 | XMS | Encounter Summary ---
Demographics + + + | Address | [address] [facility] | | | [place] [address] | + + + | Home Phone [...] [place], [place] | | | | | [address] | | + + + + + Care Team Providers + +------+ + | Care Wood Form Builder Name | Role | Phone | + +------+ + PCP | Unavailable | + +------+ + Encounter Details +--------+ + + + + | Date | Type | Department | Care Team | Description | +--------+ + + + + | 06/23/ | Hospital | [facility] | | | | 2000 | Encounter | MED CTR GENERIC OP | | | | | | CONV DEPT [address] | | | | | | [employer] [place], | | | | | | [place] [address] | | | | | | [phone] | | | +--------+ + + + [...] | | | | | [place] [address] | | | | | | [phone] | | | | | | | | +--------+ + + + + | 08/28/ | Office | Cardiology | Dora De La Torre | | | 2019 | Visit | | [address] | | | | | | [address] | | | | | | [place] [address] | | | | | | [phone] | | | | | | | | +--------+ + + + + documented as of this encounter Visit Diagnoses Not on filedocumented in this encounter"
--- OUTSIDE RECORDS SUMMARY | ~2020-05-21 | XMS | Encounter Summary ---
Demographics + + + | Address | [address] [facility] | | | [place] [address] | + + + | Home Phone [...] [place], [place] | | | | | [address] | | + + + + + Care Team Providers + +------+ + | Care Teacher Theater Arts Name | Role | Phone | + +------+ + PCP | Unavailable | + +------+ + Encounter Details +--------+ + + + + | Date | Type | Department | Care Team | Description | +--------+ + + + + | 02/24/ | Hospital | [facility] | | | | 1997 | Encounter | MED CTR EMERGENCY | | | | | | [address] | | | | | | [place] | | | | | | [address] | | | | | | [phone] | | | +--------+ + + + [...] | | | | | [place] [address] | | | | | | [phone] | | | | | | | | +--------+ + + + + | 08/28/ | Office | Cardiology | Doar De La Torre | | | 2020 | Visit | | [address] | | | | | | [address] | | | | | | [place] [address] | | | | | | [phone] | | | | | | | | +--------+ + + + + documented as of this encounter Visit Diagnoses Not on filedocumented in this encounter"
--- OUTSIDE RECORDS SUMMARY | ~2020-05-21 | XMS | Encounter Summary ---
Demographics + + + | Address | [address] [facility] [facility] [address] [address] [facility] | | | [place] [address] | + + + | Home Phone [...] [place] | | | | | [address] | | + + + + + [...] + + | 09/10/ | Documentati | [facility] | Katharine Moncada, | Other (urgent | | 2019 | on | CARDIOLOGY [place] | Technologist | report) | | | | [address] | | | | | | [place] | | | | | | [address] | | | | | | [phone] | | | +--------+ + + + [...] | | | | | [place] [address] | | | | | | [phone] | | | | | | | | +--------+ + + + + | 08/28/ | Office | Cardiology | Dora De La Torre | | | 2020 | Visit | | [address] | | | | | | [address] [address] | | | | | | [place] [address] | | | | | | [phone] | | | | | | | | +--------+ + + + + documented as of this encounter Visit Diagnoses Not on filedocumented in this encounter"
--- OUTSIDE RECORDS SUMMARY | ~2020-05-21 | XMS | Encounter Summary ---
Demographics + + + | Address | [address] [facility] | | | [place] [address] | + + + | Home Phone [...] [place] | | | | | [address] | | + + + + + Care Team Providers + +------+ + | Care Dumper Name | Role | Phone | [...] | 02/01/ | Telephone | [facility] | Frandy Teresa, | Imaging Only | | 2019 | | NEUROSURGERY [address] | DO [address] | | | | | [address] | [address] [place], [place] | | | | | [place], [place] | [id number] | | | | | [address] | | | | | | [phone] | | | +--------+ + + + [...] [address] | | | | | | [facility] [address] | | | | | | [phone] | | | | | | | | +--------+ + + + + | 08/28/ | Office | Cardiology | Dora De La Torre | | | 2020 | Visit | | [address] | | | | | | [address] | | | | | | [place] [address] | | | | | | [phone] | | | | | | | | +--------+ + + + + documented as of this encounter Visit Diagnoses Not on filedocumented in this encounter"
--- OUTSIDE RECORDS SUMMARY | ~2020-05-21 | XMS | Encounter Summary ---
Demographics + + + | Address | [address] [facility] | | | [place] [address] | + + + | Home Phone [...] [place] | | | | | [address] | | + + + + + Care Team Providers + +------+ + | Care Compound Mixer Name | Role | Phone | [...] | | | | | [address] | [place], [place] | | | | | [place], [place] | [address] | | | | | [address] | | | | | | [phone] | | | +--------+ + + + [...] EVALUATION Cindy Arndt 58 y.o. female 1955 [id number] Scheduled procedure LAMINECTOMY PLIF/TLIF INSTRUMENTATION [1842] - L5-S1 TLIF Medical history, anesthesia, medications, allergy histories reviewed. ECG reviewed. Labs reviewed. ROS / Med History Ane (+) PONV. (-) difficult intubation, malignant hyperthermia . NPO status verified. CV (+) hypertension.(-) past AL. (+) Dysrhythmias (h/o PVCs) Exercise tolerance >4 [...] | | | | | [place] [address] | | | | | | [phone] | | | | | | | | +--------+ + + + + | 08/28/ | Office | Cardiology | Dora De La Torre | | | 2020 | Visit | | [address] | | | | | | [address] | | | | | | [place] [address] | | | | | | [phone] | | | | | | | | +--------+ + + + + documented as of this encounter Visit Diagnoses Not on filedocumented in this encounter"
--- OUTSIDE RECORDS SUMMARY | ~2020-05-21 | XMS | Encounter Summary ---
Demographics + + + | Address | [address] [facility] | | | [place] [address] | + + + | Home Phone [...] [place] | | | | | [address] | | + + + + + Care Team Providers + +------+ + | Care Stock Holder Name | Role | Phone | [...] + + | 08/16/ | Telephone | [facility] | Ashley Chávez | Other (Called to | | 2018 | | CARDIOLOGY [place] | Pollo, Field Traffic Investigator | tell patient what | | | | [address] | | Nicholas said. ) | | | | [place] [address] | | | | | | [place] | | | | | | [address] | | | | | | [phone] | | | +--------+ + + + [...] Notes Telephone Encounter - Ashley Chávez, Field Traffic Investigator - 08/16/2019 2:57 PM PDTCall m cierra to patient to advise of Dr. Peterson's notes. Patient stated understanding. JKASSIE:TIER LIFT TRUCK OPERATOR-AAMA el ephone Encounter - Ashley Chávez Field Traffic Investigator - 08/16/2019 2:56 PM PDT----- Mess age [...] Thanks. ----- Message ----- From: Lesa Ochoa, Field Traffic Investigator Sent: 08/13/2019 13:31 To: Desiree Peterson DO [...] [address] | | | | | | [place] [address] | | | | | | [phone] | | | | | | | | +--------+ + + + + | 08/28/ | Office | Cardiology | Dora De La Torre | | | 2019 | Visit | | [address] | | | | | | [address] | | | | | | [place] [address] | | | | | | [phone] | | | | | | | | +--------+ + + + + documented as of this encounter Visit Diagnoses Not on filedocumented in this encounter"
--- OUTSIDE RECORDS SUMMARY | ~2020-05-21 | XMS | Encounter Summary ---
Demographics + + + | Address | [address] [facility] | | | [place] [address] | + + + | Home Phone [...] [place], [place] | | | | | [address] | | + + + + + Care Team Providers + +------+ + | Care Gas Prover Name | Role | Phone | + +------+ + PCP | Unavailable | + +------+ + Encounter Details +--------+ + + + + | Date | Type | Department | Care Team | Description | +--------+ + + + + | 01/26/ | Hospital | [facility] | [place], | | | 2011 | Encounter | MED CTR XRAY [address] | MD [address] | | | | | [place] | [place] | | | | | [place] [address] | [address] | | | | | [phone] | | | +--------+ + + + [...] [address] | | | | | | [place] [address] | | | | | | [phone] | | | | | | | | +--------+ + + + + | 08/28/ | Office | Cardiology | Dora De La Torre | | | 2019 | Visit | | [address] | | | | | | [address] [address] | | | | | | [place] [address] | | | | | | [phone] | | | | | | | [...] Performed At | + + + | [facility] Diagnostic Imaging Department | [place] | | [address] [facility] [place] | TRIS[facility] | | BILATERAL KNEES, THREE VIEWS: [...] Transcribed | | | Date/Time: 01/27/2012 17:18 Bench Assembler: | | | <Electronically Signed by Willie Perry MD> 01/27/12 7194 | | + + + + + | Procedure Note | + + | Juan, Rad Conversion - 11/30/2013 5:03 PM [facility] | | Diagnostic Imaging Department [address] [place] [address] | | BILATERAL KNEES, THREE VIEWS: 01/27/2012 [...] 17:12 | |Transcribed Date/Time: 01/27/2012 17:18 | |Bench Assembler: | |<Electronically Signed by Willie Perry MD> 01/27/122253 | + + + +---------+ + + | Performing | Address | City/State/Zipcode | Phone Number | | Organization | | | | + +---------+ + + | [place] | | | | | [facility] | | | | + +---------+ + + documented in this encounter Visit Diagnoses Not on filedocumented in this encounter"
--- OUTSIDE RECORDS SUMMARY | ~2020-05-21 | XMS | Encounter Summary ---
Demographics + + + | Address | [address] [facility] | | | [place] [address] | + + + | Home Phone [...] [place] | | | | | [address] | | + + + + + Care Team Providers + +------+ + | Care High School History Teacher Name | Role | Phone [...] + + | 08/15/ | Documentati | [facility] | Katharine Moncada, | Other (urgent | | 2019 | on | CARDIOLOGY [place] | Technologist | report) | | | | [address] | | | | | | [place] | | | | | | [address] | | | | | | [phone] | | | +--------+ + + + [...] | | | | | [place] [address] | | | | | | [phone] | | | | | | | | +--------+ + + + + | 08/28/ | Office | Cardiology | Dora De La Torre | | | 2020 | Visit | | [address] | | | | | | [address] | | | | | | [place] [address] | | | | | | [phone] | | | | | | | | +--------+ + + + + documented as of this encounter Visit Diagnoses Not on filedocumented in this encounter"
--- OUTSIDE RECORDS SUMMARY | ~2020-05-21 | XMS | Encounter Summary ---
Demographics + + + | Address | [address] [facility] [address] [facility] | | | [place] [address] | + + + | Home Phone [...] [place] | | | | | [address] | | + + + + + Care Team Providers + +------+ + | Care Patient Svcs Mgr Name | Role | Phone | [...] [address] | [address] [place], [place] | Anxiety; Anemia; | | | | [place], [place] | [address] | Irregular heartbeat; | | | | [address] | | Depression; | | | | [phone] | | Migraine; | | | | [...] [address] | | | | | | [place] [address] | | | | | | [phone] | | | | | | | | +--------+ + + + + | 08/28/ | Office | Cardiology | Dora De La Torre | | | 2019 | Visit | | [address] | | | | | | [address] | | | | | | [place] [address] | | | | | | [phone] | | | | | | | [...]
--- OUTSIDE RECORDS SUMMARY | ~2020-05-21 | XMS | Encounter Summary ---
Demographics + + + | Address | [address] [address] [facility] | | | [place] [address] | + + + | Home Phone [...] [place] | | | | | [address] | | + + + + + Care Team Providers + +------+ + | Care Production Corrugator Name | Role | Phone | + +------+ + | Adriano Patrcik MD | PCP | | + +------+ [...] + + | 10/23/ | Telephone | [facility] | Ashley Chávez | Other (Patient | | 2019 | | CARDIOLOGY [place] | Pollo, Kindergartners Helper | called about | | | | [address] | | metoprolol. ) | | | | [place], [place] | | | | | | [address] | | | | | | [phone] | | | +--------+ + + + [...] Miscellaneous Notes Telephone Encounter - Ashley Chávez, Kindergartners Helper - 10/23/2019 10:49 AM [facility] because she is [facility] [...] her back when I have her recommendations. JDW:HYDROLOGY TECHNICIAN-AAMA. [facility] umented in this encounter Plan [...] [address] | | | | | | [place] [address] | | | | | | [phone] | | | | | | | | +--------+ + + + + | 08/28/ | Office | Cardiology | StefanielarryDora | | 2019 | Visit | | [address] | | | | | | [address] | | | | | | [place] [address] | | | | | | [phone] | | | | | | | | +--------+ + + + + documented as of this encounter Visit Diagnoses Not on filedocumented in this encounter"
--- OUTSIDE RECORDS SUMMARY | ~2020-05-21 | XMS | Encounter Summary ---
Demographics + + + | Address | [address] [facility] [address] [facility] [address] [facility] | | | [place] [address] | + + + | Home Phone [...] [place] | | | | | [address] | | + + + + + Care Team Providers + +------+ + | Care Research Methods Instructor Name | Role | Phone | [...] + + | 06/28/ | Telephone | [facility] | Ashley Chávez | Other (Patient | | 2018 | | CARDIOLOGY [place]ad, Senior Human Resources Representative | called to cancel her | | | | [address] | | appointment) | | | | [place] | | | | | | [address] | | | | | | [phone] | | | +--------+ + + + [...] Miscellaneous Notes Telephone Encounter - Ashley Chávez, Senior Human Resources Representative - 06/28/2019 2:12 PM PDTPatigutierrez t said that she already got the result for her ECHO, so she decided to cancel her FU with Dr Peterson. I asked patient if she wanted to reschedule for another time, and she said she wants to FU as needed. I went ahead and canceled her appointment. BRODY:NABILAMA. [facility]ed in this encounter Plan of Treatment +--------+ + + + + | Date | Type | Specialty | Care Team | Description | +--------+ + + + + | 05/29/ | Procedure | Cardiology | Dora De La Torre | | | 2019 | visit | | [address] | | | | | | [address] | | | | | | [place] [address] | | | | | | [phone] | | | | | | | | +--------+ + + + + | 08/28/ | Office | Cardiology | Dora De La Torre | | | 2019 | Visit | | [address] | | | | | | [address] | | | | | | [place] [address] | | | | | | [phone] | | | | | | | | +--------+ + + + + documented as of this encounter Visit Diagnoses Not on filedocumented in this encounter"
--- OUTSIDE RECORDS SUMMARY | ~2020-05-21 | XMS | Encounter Summary ---
Demographics + + + | Address | [address] [facility] | | | [place] [address] | + + + | Home Phone [...] [place] | | | | | [address] | | + + + + + Care Team Providers + +------+ + | Care Development And Housing Director Name | Role | Phone | [...] | Transcriptions | + + | Interface, Wholesale Buyer In - 10/24/2006 3:09 AM PST | | [facility] | | Road [place], [place] [address] [place] | | [facility] CenterOPERATION RECORDMed Rec No.: [id number] Date: [...]
--- OUTSIDE RECORDS SUMMARY | ~2020-05-21 | XMS | Clinical Summary ---
Demographics + + + | Address | [address] [address] [facility] | | | [place] [address] | + + + | Home Phone [...] [place] | | | | | [address] | | + + + + + Care Team Providers + +------+ + | Care Change Of Address Clerk Name | Role | Phone | + +------+ + PCP | Unavailable | + +------+ + Source Comments EDWARD is fully live on both [facility] Ambulatory and [facility] InPatient.[facility] Allergies Not on [...] | [employer] | xxxxxxxxxx | 02/22/20 | [phone] | [address] | [employer] | | | RE A & | | 15-Pre | 1 | [address] | re | | | B | | sent | | [place] | | | | | | | | [address] | | + +--------+ +--------+ + +--------+ + +--------+ +--------+ + + | Guarantor Name | Accoun | Relation to | Date | Phone | Billing Address | | | t Type | Patient | of | | | | | | | | | | + +--------+ +--------+ + + | CINDY ARNDT | Person | Self | [birth year] | [address] | | | al/Fam | | 1955 | [phone] | [address] [place] | | | devonte | | | 5 (Home) | [address] | + +--------+ +--------+ + +"
--- OUTSIDE RECORDS SUMMARY | ~2020-05-21 | XMS | Encounter Summary ---
Demographics + + + | Address | [address] [facility] | | | [place] [address] | + + + | Home Phone [...] [place] | | | | | [address] | | + + + + + Care Team Providers + +------+ + | Care Patient Scheduling Coordinator Name | Role | Phone [...] | | | | | | | [address] | | | | | | | Phone: | | | | | | | [phone] | | | | | | | Fax: | | | | | | | [phone] | | +--------+ + + + + + Reason for Visit + + + | Reason | Comments | + + + | Follow-up | 3 mo po | + + + Encounter Details +--------+---------+ + + + | Date | Type | Department | Care Team | Description | +--------+---------+ + + + | 09/27/ | [facility] | [facility] | Frandy Teresa, | Lumbar spondylosis | | 2013 | Visit | NEUROSURGERY [address] | DO [address] | (Primary Dx); S/P | | | | [address] | [address] [place], [place] | lumbar fusion | | | | [place], [place] | [address] | | | | | [address] | | | | | | [phone] | | | +--------+---------+ + + + [...] [facility] [address] [place] [address] FAX: NEUROSURGERY FOLLOW-UP CHIEF COMPLAINT: Chief Complaint [...] Laterality: N/A; Surgeon: Frandy castellanos DO; Location: [facility] CURRENT MEDICATIONS: Current Outpatient [...] Take 15 mg by mouth nightl y. [place]-3 Fatty Acids (FISH OIL CONCENTRATE) 1000 MG [...] encounter Miscellaneous Notes Miscellaneous - [facility] - 09/27/2014 12:00 AM PST documented in [...] | | | | | [place] [address] | | | | | | [phone] | | | | | | | | +--------+ + + + + | 08/28/ | Office | Cardiology | Dora De La Torre | | | 2019 | Visit | | [address] | | | | | | [address] | | | | | | [place] [address] | | | | | | [phone] | | | | | | | [...]
--- OUTSIDE RECORDS SUMMARY | ~2020-05-21 | XMS | Encounter Summary ---
Demographics + + + | Address | [address] [facility] [address] | | | [place] [address] | + + + | Home Phone [...] [place] | | | | | [address] | | + + + + + Care Team Providers + +------+ + | Care Surveillance Systems Engineer Name | Role | Phone [...] | | | spondylolist | | [address] | | | | | hesis | | [place], | | | | | Spinal | | [place] [address] | | | | | stenosis, | | Phone: | | | | | lumbar | | [phone] | | | | | region, | | Fax: | | | | | without | | [phone] | | | | | neurogenic | [...] [address] | [place] [address] | (Primary Dx); | | 07/05/ | | [place] [address] | [phone] | Diabetes mellitus | | 2013 | | [phone] | | ([facility]); Disturbance | | | | [...] might be different fro m the original. [facility] DISCHARGE SUMMARY PATIENT NAME: Cindy [...] discharge to SNF. DISPOSITION: SNF ([facility]) DISCHARGE MEDICATIONS Medications prior to [...] Take 15 mg by mouth nightl y. [place]-3 Fatty Acids (FISH OIL CONCENTRATE) 1000 [...] + + + +---------+ + + | [place]-3 Fatty | Take 1,000 mg by | [...] Arndt 58 y.o. 1955 Med. Record Number: [id number] Date of admission: 07/02/2014 Subjective: The patient [...] home medications. D/C plan: Home tomorrow with [facility]. D/c mari drain and riley cath today. D/c staff antisubmarine officer. Patient Active Problem List Diagnosis LUMBAR DISC [...] PA-C - 07/03/2014 7:13 AM PDT . [facility] PROGRESS NOTE Pt. Name/Age/: Cindy Arndt 58 y.o. 1955 Med. Record Number: [id number] Date of admission: 07/02/2014 Subjective: The patient [...] Electronically signed by: Chris Nicole, 07/03/2014 7:13 [facility] on [place], KRIS - 07/03/2014 6:50 AM [...] signed by: Frandy Teresa DO, 07/02/2014 11:15 [facility] signed by Frandy Teresa DO at 06/2014 11:15 AM PDTFrandy Teresa DO - 07/02/2014 11:15 AM [id number] [facility], [address] [place], [place] [id number] FAX: NEUROSURGERY HISTORY AND PHYSICAL EXAMINATION CHIEF [...] Take 15 mg by mouth earnestine eldridge. [place]-3 Fatty Acids (FISH OIL CONCENTRATE) 1000 [...] has no apparent deficits with short or supervisor 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s memory. CRANIAL NERVES: II: Acuity is intact. [...] Intrinsics 5 5 Ulnar Intrinsics 5 5 Break Off Worker Strength 5 5 Hip Flexion 5 [...] documented in this en counter Procedure Notes [facility] - 07/12/2014 12:00 AM PDT 14 1[facility]45 [facility] - 07/04/2014 12:00 AM PDT [facility] - 07/02/2014 12:00 AM PDT documented in this encounter Miscellaneous Notes Plan of Care - [facility] - 07/12/2014 12:00 AM PDT iscellaneous - [facility] - 07/12/2014 12:00 AM PDTElec tronically signed by Mariah Schulte at 07/12/2014 1:45 PM PDTMiscellaneous - [facility] - 07/12/2014 12:00 AM PDT i scellaneous - [facility] - 07/12/2014 12:00 AM PDT [...] and I will be going to a assisted as I have 16 steps to my [...] TBD) Equipment Recommendations: tub bench;hand held shower head;logistics solution manager;comfort height toilet ( pt. has all [...] PA-C Consultants: none PCP: Natalee Andersen [facility] transferring to: [facility] Provider after transfer: PCP and Dr. Frandy Teresa CODE STATUS: [x] Attempt CPR [] Do not resuscitate If patient is pulseless and not breathing, RN/CLOTH SHRINKING SUPERVISOR may pronounce . Advanced Directives included: [] [...] for this patient. Diet: [] As tolerated [place]YWOOD LAYUP LINE CORE LAYER may upgrade or downgrade diet as condition Indicates. [x] RN may downgrade diet as indicated. Type: [] Continue current diet of: Diet and Supplements Diet DIET CONSISTENT CARBOHYDRATE Number of Occurrences: -1 Days [] Other: Consistency/Precautions: [] Whole [] Thin Liquids [] Cut-up [] [place] Thick [] Advanced Chopped [] Honey Thickened [] Chopped [] Advanced Ground [] 1:1 feedings [] Ground/Pureed [] Other: Tube Feedings: [] PEG [] GT [] JT [] NGT [] Formula type: (Procedure Tech may change/substitute if indicated). [] Continuous Rate: [...] & Management for: ____same as above [] [place]OD LAYUP LINE CORE LAYER Evaluation &Management for: [] Other: Wound/Skin Care: [...] Take 15 mg by mouth ni linda. [place]-3 Fatty Acids (FISH OIL CONCENTRATE) 1000 [...] (pediatric) IChris PA-C, certify that post hospital jail care is medically nec essary on a continuing basis for any of the conditions for which he/she received care during this hospitalization. Check one: [x] Skilled [] Intermediate Additional Orders/Instructions: Physician's signature:__Chris Nicole PA-C 07/05/2014 13:18 [facility] JMILKarsten [facility] USE ONLY: [] Admitting orders [...] tolerate progressive walking and doing stairs du [facility] hospital stay due to multiple pain c/o. Attempted to see pt. 1145, however had just rec eived pain medication and requested PT return, SPL 9/10. At 1205 pt contacted PT for assist OOB due to left LE spasms and need for position change. Sitting at EOB on arrival, SECURITIES ANALYST pres ent. Pt. donned LSO brace, stood [...] of endurance. When patient is walking [place] [facility] [place] with a regular FWW she has to stop frequently and states she feels very weak, like sh e may fall. Patient lives alone. Outpatient prescriptions are filled at [facility] in [facility]. Electronically signed by: Franca Narvaez RN 07/05/2014 10:43 lan of Adilene Layne Rivers - 07/05/2014 10:39 AM PDTFaxed referral to Gabriela Stout and Lidia Tran. [place] : [id number] and [place]: [id number] Electronically signed by: Layne Collado 07/05/2014 10:40 [...] TBD) Equipment Recommendations: tub bench;hand held shower head;logistics solution manager;comfort height toilet ( pt. has all necessary equipment) Planned Interventions: ADL retraining;transfer training Patient Status/Goals Reflects last filed data of patient status; may be from multiple contributors. Grooming: Status: did not occur today Assist: Utilizes: STG: Status: New Goal:modified independent LTG: Status: Goal: UE Dressing: Status: SBA Assist: Utilizes: STG: Status: Goal: LTG: Status: Goal: LE Dressing: Status: SBA Utilizes: logistics solution manager STG: Status: New Goal: modified independent [...] bed mobil ity. Pt has been using [facility] and pain pills during the night. Zofran [...] by herself in a small apartment in [place]. Patient states she has her apartment set [...] to come from [facility] [place]. She states the Said she might benefit [facility] upon discharge. She would like me to contact [facility] to giv e them a heads up. I called and spoke to Summer at [facility] , told her patients PCP i [...] Pt. resting in bed on arrival, used [facility] x 2 during session. SPL 5/10. Pt. hoping to urinate store receiver to straight cath. Sidelying to sit at [...] TBD) Equipment Recommendations: tub bench;hand held shower head;logistics solution manager;comfort height toilet ( pt. has all [...] & Review . Outcome: Progressing Pt using [facility] and PO pain pills, c/o numbness on [...] and on a continuous oximeter for her [facility]. She was unable to do her IS because o f the medications. She has the IS at bedside with a goal of 2400. She did not require additi onal respiratory care throughout the evening. p Note - Frandy Teresa, - 07/02/2014 2:25 PM PDTDATE: 07/02/2014 SURGEON: Frandy Teresa MD. PHILOSOPHY FACULTY MEMBER: ZANE Oh PREOPERATIVE DIAGNOSES 1. Spondylolisthesis, L5-S1. [...] Note Cindy Arndt 58 y.o. female 1955 [id number] Proc. Date 07/02/2014 Preop Dx Spondylolisthesis L5-S1 Postop Dx same Procedure Procedure(s):MIS L5-S1 TRANSFORAMINAL LUMBAR INTERBODY FUSION Anesthesia General Surgeon Frandy Teresa DO Edge Burnisher Uppers ZANE Oh EBL 100 mL Findings Findings consistent with scheduled procedure. No other abnormalities found. Complications none Specimens * No specimens in log * Drains Electronically signed by: Frandy Teresa DO 07/02/2014 14:22 [facility] documented in this en counter Plan [...] | | | | | | [place] [address] | | | | | | [phone] | | | | | | | | +--------+ + + + + | 08/28/ | Office | Cardiology | Dora De La Torre | | | 2020 | Visit | | [address] | | | | | | [address] | | | | | | [place] [address] | | | | | | [phone] | | | | | | | [...] + | [facility] | [address] | [place] | [phone] | | [facility] | | [address] | | | - LABORATORY | | | | + + + + + | [facility] | [address] | [place] | | | [facility] | | [address] | | | - LABORATORY [...] + | [facility] | [address] | [place], [place] | [phone] | | [facility] | | [address] | | | - LABORATORY | | | | + + + + + | [facility] | [address] | [place], [place] | | | [facility] | | [address] | | | - LABORATORY [...] [address] | [place] | [phone] | | [facility] | | [address] | | | - LABORATORY | | | | + + + + + | [address] | [address] | [place], [place] | | | [facility] | | [address] | | | - LABORATORY [...] + | [facility] | [address] | [place] | [phone] | | [facility] | | [address] | | | - LABORATORY | | | | + + + + + | [facility] | [address] | [place], [place] | | | [facility] | | [address] | | | - [...] [address] | [place] | [phone] | | [facility] | | [address] | | | - LABORATORY | | | | + + + + + | [address] | [address] | [place] | | | [facility] | | [address] | | | - LABORATORY [...] + | [facility] | [address] | [place] | [phone] | | [facility] | | [address] | | | - LABORATORY | | | | + + + + + | [facility] | [address] | [place], [place] | | | [facility] | | [address] | | | - [...] [address] | [place] | [phone] | | [facility] | | [address] | | | - LABORATORY | | | | + + + + + | [address] | [address] | [place] | | | [facility] | | [address], [facility] | | | [...] + | [facility] | [address] | [place], [place] | [phone] | | [facility] | | [address] | | | - LABORATORY | | | | + + + + + | [facility] | [address] | [place], [place] | | | [facility] | | [id number] [place] [address] | | | - LABORATORY | | [...] + | [address] | [address] | [place], [place] | [phone] | | [facility] | | [address] | | | - LABORATORY | | | | + + + + + | [address] | [address] | [place], [place] | | | [facility] | | [id number] [place] [address] | | | - LABORATORY | | [...] | of hardware for posterior fusion from V2gxbannq S1 with interbody hardware at L5-S1. The [...] + | MISCELLANEOUS LAB | | | [phone] | + +---------+ + + | MISCELANIOUS LAB | | | [phone] | + +---------+ + + POC Glucose [...] + | [facility] | [address] | [place] | [phone] | | [facility] | | [address] | | | - LABORATORY | | | | + + + + + | [facility] | [address] | [place] | | | [facility] | | [address], [facility] | | | [...] + | [facility] | [address] | [place], [place] | [phone] | | [facility] | | [address] | | | - LABORATORY | | | | + + + + + | [facility] | [address] | [place], [place] | | | [facility] | | [address] | | | - LABORATORY [...] [address] | [place] | [phone] | | [facility] | | [address] | | | - LABORATORY | | | | + + + + + | [address] | [address] | [place] | | | [facility] | | [address] | | | - LABORATORY [...] + | [address] | [address] | [place], [place] | [phone] | | [facility] | | [address] | | | - LABORATORY | | | | + + + + + | [facility] | [address] | [place], [place] | | | [facility] | | [address] | | | - LABORATORY [...] [address] | [place] | [phone] | | [facility] | | [address] | | | - LABORATORY | | | | + + + + + | [facility] | [address] | [place] | | | [facility] | | [address] | | | - LABORATORY [...] | | [facility] | | [address] | | | - BLOOD BANK | [...] + +---------+ +---+---+---+ | morphine 5 mg/mL [facility] syringe | New Bag | 07/02/20 | [...] | | | | Dose(mg): 0, Starting [facility] | | | | | | | Dose(mg): 1, Incremental Increase | | | | | | | [facility] Dose(mg): 0.5, Maximum [facility] | | | | | | | [...]
--- OUTSIDE RECORDS SUMMARY | ~2020-05-21 | XMS | Encounter Summary ---
Demographics + + + | Address | [address] [facility] [facility] [address] | | | [place] [address] | + + + | Home Phone [...] [place] | | | | | [address] | | + + + + + Care Team Providers + +------+ + | Care Bag Machine Tender Name | Role | Phone [...] SW | Clinic | | | | iasbelle | Nicole Quiroz | | | | | | Mailcode: [id number] | | | | | | Outpatient Clinic | | | | | | [facility], [address] | | | | | | [place], [place] | | | | | | [address] | | | | | | [phone] | | | +--------+ + + + [...] as of this encounter Progress Notes Interface, Welder Boilermaker In - 12/11/2006 5:03 AM [facility] [...]
--- OUTSIDE RECORDS SUMMARY | ~2020-05-21 | XMS | Encounter Summary ---
Demographics + + + | Address | [address] [facility] [address] | | | [place] [address] | + + + | Home Phone [...] [place], [place] | | | | | [address] | | + + + + + Care Team Providers + +------+ + | Care Rug Sizer Name | Role | Phone | + +------+ + PCP | Unavailable | + +------+ + Encounter Details +--------+ + + + + | Date | Type | Department | Care Team | Description | +--------+ + + + + | 05/29/ | Hospital | [facility] | | | | 1991 | Encounter | MED CTR LABORATORY | | | | | | [address] | | | | | | [place] | | | | | | [address] | | | | | | [phone] | | | +--------+ + + + [...] | | | | | [place] [address] | | | | | | [phone] | | | | | | | | +--------+ + + + + | 08/28/ | Office | Cardiology | Dora De La Torre | | | 2020 | Visit | | [address] | | | | | | [address] | | | | | | [place] [address] | | | | | | [phone] | | | | | | | | +--------+ + + + + documented as of this encounter Visit Diagnoses Not on filedocumented in this encounter"
--- OUTSIDE RECORDS SUMMARY | ~2020-05-21 | XMS | Encounter Summary ---
Demographics + + + | Address | [address] [facility] [address] | | | [place] [address] | + + + | Home Phone [...] [place] | | | | | [address] | | + + + + + [...] + + | 02/27/ | Telephone | [facility] | Katharine Cardona PA-C | Appointment (New | | 2014 | | MEDICINE [address] | [address] | Patient) | | | | [address], | [place] [address] | | | | | [place] [address] | [phone] | | | | | [phone] | | | +--------+ + + + [...] patients. Those patients are re ferred to [facility]. Cindy stated that would be fine with her. She stated she is 7 months post-back surgery per Dr. Teresa and only uses the hydrocodone and oxycodone occ asionally. She said she is trying to get off the oxycodone completely. Cindy said she saw Dr. Newman this morning to address her myositis issues. [facility] Appointment scheduled for 03-06-15 with Katharine [...] [address] | | | | | | [place] [address] | | | | | | [phone] | | | | | | | | +--------+ + + + + | 08/28/ | Office | Cardiology | Dora De La Torre | | | 2019 | Visit | | [address] | | | | | | [address] | | | | | | [place] [address] | | | | | | [phone] | | | | | | | | +--------+ + + + + documented as of this encounter Visit Diagnoses Not on filedocumented in this encounter"
--- OUTSIDE RECORDS SUMMARY | ~2020-05-21 | XMS | Encounter Summary ---
Demographics + + + | Address | [address] [facility] [address] | | | [place] [address] | + + + | Home Phone [...] [place] | | | | | [address] | | + + + + + Care Team Providers + +------+ + | Care Gear Grinder Name | Role | Phone | [...] [address] | [address] [place], [place] | Hypothyroidism; | | | | [place] | [address] | GERD; BACK PAIN, | | | | [address] | | LUMBAR, WITH | | | | [phone] | | RADICULOPATHY; | | | | [...] | | | | | [place] [address] | | | | | | [phone] | | | | | | | | +--------+ + + + + | 08/28/ | Office | Cardiology | Dora De La Torre | | | 2019 | Visit | | [address] | | | | | | [address] | | | | | | [place] [address] | | | | | | [phone] | | | | | | | [...]
--- OUTSIDE RECORDS SUMMARY | ~2020-05-21 | XMS | Encounter Summary ---
Demographics + + + | Address | [address] [facility] | | | [place] [address] | + + + | Home Phone [...] [place] | | | | | [address] | | + + + + + Care Team Providers + +------+ + | Care Theatre Director Name | Role | Phone | [...] + + | 05/01/ | Telephone | [facility] | Dora De La Torre | Medication Question | | 2020 | | CARDIOLOGY [place] | [address] | | | | | [address] | [address] | | | | | [address] | [place] [address] | | | | | [place] | [phone] | | | | | [address] | | | | | | [phone] | | | +--------+ + + + [...] [address] | | | | | | [place] [address] | | | | | | [phone] | | | | | | | | +--------+ + + + + | 11/05/ | Office | Cardiology | Dora De La Torre | | | 2020 | Visit | | [address] | | | | | | [address] | | | | | | [place] [address] | | | | | | [phone] | | | | | | | | +--------+ + + + + documented as of this encounter Visit Diagnoses Not on filedocumented in this encounter"
--- OUTSIDE RECORDS SUMMARY | ~2020-05-21 | XMS | Encounter Summary ---
Demographics + + + | Address | [address] [facility] | | | [place] [address] | + + + | Home Phone [...] [place] | | | | | [address] | | + + + + + Care Team Providers + +------+ + | Care Employee Adviser Name | Role | Phone | + +------+ + | Natalee Andersen NP | PCP | | + +------+ + Encounter Details +--------+ + + + + | Date | Type | Department | Care Team | Description | +--------+ + + + + | 06/25/ | Hospital | [facility] | Frandy Teresa, | Acquired | | 2014 | Encounter | MED CTR XRAY [address] | DO [address] | spondylolisthesis | | | | [place] | [address] [place], [place] | | | | | [place] [address] | [address] | | | | | [phone] | | | +--------+ + + + [...] + + + +---------+ + + | [place]-3 Fatty | Take 1,000 mg by | [...] [address] | | | | | | [place] [address] | | | | | | [phone] | | | | | | | | +--------+ + + + + | 08/28/ | Office | Cardiology | Dora De La Torre | | | 2019 | Visit | | [address] | | | | | | [address] | | | | | | [place] [address] | | | | | | [phone] | | | | | | | | +--------+ + + + + documented as of this encounter Visit Diagnoses + + | Diagnosis | + + | Acquired spondylolisthesis | + + documented in this encounter"
--- OUTSIDE RECORDS SUMMARY | ~2020-05-21 | XMS | Encounter Summary ---
Demographics + + + | Address | [address] [facility] [address] | | | [place] [address] | + + + | Home Phone [...] [place] | | | | | [address] | | + + + + + Care Team Providers + +------+ + | Care Tool And Die Technician Name | Role | Phone | [...] + | 07/08/ | Telephone | [facility] | Frandy Teresa, | Other (post op call | | 2013 | | NEUROSURGERY [address] | DO [address] | ) | | | | [facility] | [address] [place], [place] | | | | | [place], [place] | [id number] | | | | | [address] | | | | | | [phone] | | | +--------+ + + + [...] 07/08/2014 11:04 AM [facility] SHAYNE ARAGON documented in this encounter [...] [address] | | | | | | [place] [address] | | | | | | [phone] | | | | | | | | +--------+ + + + + | 08/28/ | Office | Cardiology | Dora De La Torre | | | 2020 | Visit | | [address] | | | | | | [address] | | | | | | [place] [address] | | | | | | [phone] | | | | | | | | +--------+ + + + + documented as of this encounter Visit Diagnoses Not on filedocumented in this encounter"
--- OUTSIDE RECORDS SUMMARY | ~2020-05-21 | XMS | Encounter Summary ---
Demographics + + + | Address | [address] [facility] | | | [place] [address] | + + + | Home Phone [...] [place], [place] | | | | | [address] | | + + + + + Care Team Providers + +------+ + | Care Crop Or Livestock Tenant Farmer Name | Role | Phone | + +------+ + PCP | Unavailable | + +------+ + Encounter Details +--------+ + + + + | Date | Type | Department | Care Team | Description | +--------+ + + + + | 06/30/ | Hospital | [facility] | | | | 1999 - | Encounter | MED CTR GENERIC PSY | | | | | | CONV DEPT [address] | | | | 07/05/ | | [address] [place], | | | | 1999 | | [place] [address] | | | | | | [phone] | | | +--------+ + + + [...] [address] | | | | | | [place] [address] | | | | | | [phone] | | | | | | | | +--------+ + + + + | 08/28/ | Office | Cardiology | Dora De La Torre | | | 2019 | Visit | | [address] | | | | | | [address] | | | | | | [place] [address] | | | | | | [phone] | | | | | | | | +--------+ + + + + documented as of this encounter Visit Diagnoses Not on filedocumented in this encounter"
--- OUTSIDE RECORDS SUMMARY | ~2020-05-21 | XMS | Encounter Summary ---
Demographics + + + | Address | [address] [facility] | | | [place] [address] | + + + | Home Phone [...] [place] | | | | | [address] | | + + + + + Care Team Providers + +------+ + | Care Stevedore Hold Name | Role | Phone | + [...] | spinal fusion | | | | [place] | [address] [place], [place] | | | | | [place] [address] | [address] | | | | | [phone] | | | +--------+ + + + [...] + + + +---------+ + + | [place]-3 Fatty | Take 1,000 mg by | [...] | | | | | [place] [address] | | | | | | [phone] | | | | | | | | +--------+ + + + + | 08/28/ | Office | Cardiology | Dora De La Torre | | | 2020 | Visit | | [address] | | | | | | [address] | | | | | | [place] [address] | | | | | | [phone] | | | | | | | [...] + | MISCELLANEOUS LAB | | | [phone] | + +---------+ + + | MISCELANIOUS LAB | | | [phone] | + +---------+ + + documented in this encounter Visit Diagnoses + + | Diagnosis | + + | Status post lumbar spinal fusion Arthrodesis status | + + documented in this encounter"
--- OUTSIDE RECORDS SUMMARY | ~2020-05-21 | XMS | Encounter Summary ---
Demographics + + + | Address | [address] [facility] [facility] | | | [place] [address] | + + + | Home Phone [...] [place], [place] | | | | | [address] | | + + + + + Care Team Providers + +------+ + | Care Bath Mixer Name | Role | Phone | [...] [address] | | | | | | [place], [place] | | | | | | [address] | | | | | | [phone] | | | +--------+ + + + [...] | | | | | [place] [address] | | | | | | [phone] | | | | | | | | +--------+ + + + + | 08/28/ | Office | Cardiology | Dora De La Torre | | | 2020 | Visit | | [address] | | | | | | [address] | | | | | | [place] [address] | | | | | | [phone] | | | | | | | | +--------+ + + + + documented as of this encounter Visit Diagnoses Not on filedocumented in this encounter
--- OUTSIDE RECORDS SUMMARY | ~2020-05-21 | XMS | Encounter Summary ---
Demographics + + + | Address | [address] [facility] | | | [place] [address] | + + + | Home Phone [...] [place] | | | | | [address] | | + + + + + Care Team Providers + +------+ + | Care Combination Man Name | Role | Phone | [...] + | 06/26/ | Telephone | [facility] | Frandy Teresa, | Other | | 2013 | | NEUROSURGERY [address] | DO [address] | | | | | [address] | [address] [place], [place] | | | | | [place], [place] | [id number] | | | | | [address] | | | | | | [phone] | | | +--------+ + + + [...] [address] | | | | | | [place] [address] | | | | | | [phone] | | | | | | | | +--------+ + + + + | 08/28/ | Office | Cardiology | Dora De La Torre | | | 2019 | Visit | | [address] | | | | | | [address] | | | | | | [place] [address] | | | | | | [phone] | | | | | | | | +--------+ + + + + documented as of this encounter Visit Diagnoses Not on filedocumented in this encounter"
--- OUTSIDE RECORDS SUMMARY | ~2020-05-21 | XMS | Encounter Summary ---
Demographics + + + | Address | [address] [facility] [address] [facility] | | | [place] [address] | + + + | Home Phone [...] [place], [place] | | | | | [address] | | + + + + + Care Team Providers + +------+ + | Care Molded Rubber Goods Cutter Name | Role | Phone | + +------+ + PCP | Unavailable | + +------+ + Encounter Details +--------+ + + + + | Date | Type | Department | Care Team | Description | +--------+ + + + + | 02/28/ | Hospital | [facility] | Deon Gonzales | | | 2012 | Encounter | MED CTR SLEEP | MD [address] | | | | | [place] [address] | [place] [facility] | | | | | [place], [place] | [place] [address] | | | | | [address] | [phone] | | | | | [phone] | | | +--------+ + + + [...] - 02/29/2012 2:36 PM PDTDATE: 02/29/2012 cc: [facility] Sleep Center Deon Gonzales Jr., MD, [facility] POSITIVE PRESSURE TITRATION STUDY CLINICAL INFORMATION: This [...] the patient scored 18 points on the [place] Sleepiness Scale, which endorses a severe degree [...] advised. Deon Gonzales Jr., MD, FAASM Diplomate [place] Board of Internal Medicine Diplomate in Sleep Medicine Enterprise Resource Planning Consultant, [facility] Clinical Field Identification Specialist Katelin joy [facility], [facility] JOB #: [id number] EXT JOB #:[id number] EDITED: 03/03/2012 07:26 <Electronically Signed by Deon [...] | | | | | [place] [address] | | | | | | [phone] | | | | | | | | +--------+ + + + + | 08/28/ | Office | Cardiology | Dora De La Torre | | | 2019 | Visit | | [address] | | | | | | [address] | | | | | | [place] [address] | | | | | | [phone] | | | | | | | | +--------+ + + + + documented as of this encounter Visit Diagnoses Not on filedocumented in this encounter"
--- OUTSIDE RECORDS SUMMARY | ~2020-05-21 | XMS | Encounter Summary ---
Demographics + + + | Address | [address] [facility] [facility] [address] [facility] | | | [place] [address] | + + + | Home Phone [...] [place], [place] | | | | | [address] | | + + + + + Care Team Providers + +------+ + | Care Audio Video Mechanic Name | Role | Phone | + +------+ + PCP | Unavailable | + +------+ + Encounter Details +--------+ + + + + | Date | Type | Department | Care Team | Description | +--------+ + + + + | 07/17/ | Hospital | [facility] | | | | 1997 | Encounter | MED CTR EMERGENCY | | | | | | [address] | | | | | | [place] | | | | | | [address] | | | | | | [phone] | | | +--------+ + + + [...] | | | | | [place] [address] | | | | | | [phone] | | | | | | | | +--------+ + + + + | 08/28/ | Office | Cardiology | Dora De La Torre | | | 2020 | Visit | | [address] | | | | | | [address] | | | | | | [place] [address] | | | | | | [phone] | | | | | | | | +--------+ + + + + documented as of this encounter Visit Diagnoses Not on filedocumented in this encounter"
--- OUTSIDE RECORDS SUMMARY | ~2020-05-21 | XMS | Encounter Summary ---
Demographics + + + | Address | [address] [address] [facility] [address] | | | [place] [address] | + + + | Home Phone [...] [place], [place] | | | | | [address] | | + + + + + Care Team Providers + +------+ + | Care Rock Star Name | Role | Phone | + +------+ + PCP | Unavailable | + +------+ + Encounter Details +--------+ + + + + | Date | Type | Department | Care Team | Description | +--------+ + + + + | 05/25/ | Hospital | [facility] | | | | 1991 | Encounter | MED CTR LABORATORY | | | | | | [address] | | | | | | [place] | | | | | | [address] | | | | | | [phone] | | | +--------+ + + + [...] | | | | | [place] [address] | | | | | | [phone] | | | | | | | | +--------+ + + + + | 08/28/ | Office | Cardiology | Dora De La Torre | | | 2020 | Visit | | [address] | | | | | | [address] | | | | | | [place] [address] | | | | | | [phone] | | | | | | | | +--------+ + + + + documented as of this encounter Visit Diagnoses Not on filedocumented in this encounter"
--- OUTSIDE RECORDS SUMMARY | ~2020-05-21 | XMS | Encounter Summary ---
Demographics + + + | Address | [address] [facility] [address] | | | [place] [address] | + + + | Home Phone [...] [place] | | | | | [address] | | + + + + + Care Team Providers + +------+ + | Care Air Brush Operator Name | Role | Phone | [...] + + | 02/05/ | Telephone | [facility] | Ashley Chávez | Other (Patient | | 2020 | | CARDIOLOGY [place], Animal Daycare Provider | ) | | | | [address] | | | | | | [place] | | | | | | [address] | | | | | | [phone] | | | +--------+ + + + [...] t week . elephone Enco Ashley Wong, Animal Daycare Provider - 02/06/2020 2:53 PM PDTPatient states that [...] advise. Thank you! (sent to Dora Mendez) JDW:SIGNAL PERSON-AAMA. doc umented in this encounter Plan of [...] | | | | | | [place] [address] | | | | | | [phone] | | | | | | | | +--------+ + + + + | 08/28/ | Office | Cardiology | Dora De La Torre | | | 2019 | Visit | | [address] | | | | | | [address] | | | | | | [facility] [place] [address] | | | | | | [phone] | | | | | | | | +--------+ + + + + documented as of this encounter Visit Diagnoses Not on filedocumented in this encounter
--- OUTSIDE RECORDS SUMMARY | ~2020-05-21 | XMS | Encounter Summary ---
Demographics + + + | Address | [address] [facility] [address] [facility] [address] [facility] | | | [place] [address] | + + + | Home Phone [...] [place] | | | | | [address] | | + + + + + Care Team Providers + +------+ + | Care Bottom Painter Name | Role | Phone | [...] | | [address] | [place], [place] | | | | | [place], [place] | [address] | | | | | [address] | | | | | | [phone] | | | +--------+ + + + [...] [place] | | | | | | [place] [address] | | | | | | [phone] | | | | | | | | +--------+ + + + + | 08/28/ | Office | Cardiology | Dora De La Torre | | | 2019 | Visit | | [address] | | | | | | [address] | | | | | | [place] [address] | | | | | | [phone] | | | | | | | [...] 0.83 m/s | | | MV Dec Dundy: 2.85 m/s2 MV DecT: 282.89 ms MV E Teodoro: 0.80 | | | m/s MV E/A Ratio: 0.96 E/E' Sept: 12.59 E' Lat: 0.08 m/s | | | E' Sept: 0.06 m/s RAP: 10 mmHg RV S': 0.11 m/s RVSP: | | | 27.96 mmHg TR maxP.96 mmHg TR Vmax: 2.11 m/s | | | Molding Press Operator: Authenticated by: Desiree Peterson MD Report Date/Time: | | | -- 79_[id number]_4:31:1 | | + + + + + [...] (A-L): 19.60 | | ml/m2LAAs A2C: 15.44 [id number] A-L A2C: 43.84 mlLAESV MOD A2C: 42.12 mlLALs A2C: | | 4.61 cmLAAs A4C: 14.18 [id number] A-L A4C: 38.73 mlLAESV MOD A4C: 37.04 mlLALs A4C: | | 4.41 cmRAAs: 12.15 [id number] A-L: 28.54 mlRAESV MOD: 28.66 mlRALs: 4.39 | | cmTAPSE: 2.42 cmAV Env.Ti: 293.94 msAV maxP.18 mmHgAV meanP.09 mmHgAV | | Vmax: 1.88 m/Eddie Vmean: 1.25 m/Eddie VTI: 36.84 cmAVA Vmax: 2.06 cm2AVA (VTI): | | 2.24 rj2ANCB Vmax: 0.00 cm2/m2AVAI (VTI): 0.00 cm2/m2LVOT Env.Ti: 299.59 msLVOT | | maxP.52 mmHgLVOT meanP.65 mmHgLVSI Dopp: 38.55 ml/m2LVSV Dopp: 82.89 | | mlLVOT Vmax: 1.27 m/sLVOT Vmean: 0.91 m/sLVOT VTI: 27.27 cmMV A Teodoro: 0.83 m/sMV | | Dec Dundy: 2.85 m/s2MV DecT: 282.89 msMV E Teodoro: 0.80 m/sMV E/A Ratio: 0.96E/E' | | Sept: 12.59E' Lat: 0.08 m/sE' Sept: 0.06 m/sRAP: 10 mmHgRV S': 0.11 m/sRVSP: | | 27.96 mmHgTR maxP.96 mmHgTR Vmax: 2.11 m/s Molding Press Operator:Authenticated by: | | Desiree Peterson MDReport Date/Time: -- [id number]:31:1 IMPRESSION: 1. Overall left | | ventricular [...] A Teodoro: 0.83 m/s | |MV Dec Dundy: 2.85 m/s2 | |MV DecT: 282.89 ms | |MV E Teodoro: 0.80 m/s | |MV E/A Ratio: 0.96 | |E/E' Sept: 12.59 | |E' Lat: 0.08 m/s | |E' Sept: 0.06 m/s | |RAP: 10 mmHg | |RV S': 0.11 m/s | |RVSP: 27.96 mmHg | |TR maxP.96 mmHg | |TR Vmax: 2.11 m/s | | | |Molding Press Operator: | |Authenticated by: Desiree Peterson MD | |Report Date/Time: -- [id number]:31:1 | | | |IMPRESSION: | |1. Overall [...]
--- OUTSIDE RECORDS SUMMARY | ~2020-05-21 | XMS | Encounter Summary ---
Demographics + + + | Address | [address] [facility] [address] | | | [place] [address] | + + + | Home Phone [...] [place], [place] | | | | | [address] | | + + + + + Care Team Providers + +------+ + | Care Farm Implement Engine Mechanic Name | Role | Phone | + +------+ + PCP | Unavailable | + +------+ + Encounter Details +--------+ + + + + | Date | Type | Department | Care Team | Description | +--------+ + + + + | 12/27/ | Hospital | [facility] | | | | 1997 | Encounter | MED CTR EMERGENCY | | | | | | [address] | | | | | | [place] | | | | | | [address] | | | | | | [phone] | | | +--------+ + + + [...] | | | | | [place] [address] | | | | | | [phone] | | | | | | | | +--------+ + + + + | 08/28/ | Office | Cardiology | Dora De La Torre | | | 2020 | Visit | | [address] | | | | | | [address] | | | | | | [place] [address] | | | | | | [phone] | | | | | | | | +--------+ + + + + documented as of this encounter Visit Diagnoses Not on filedocumented in this encounter"
--- OUTSIDE RECORDS SUMMARY | ~2020-05-21 | XMS | Encounter Summary ---
Demographics + + + | Address | [address] [address] [facility] [address] [facility] [address] | | | [place] [address] | + + + | Home Phone [...] [place] | | | | | [address] | | + + + + + Care Team Providers + +------+ + | Care Food And Beverage Controller Name | Role | Phone | [...] + + | 08/30/ | Telephone | [facility] | Ashley Chávez | Other (Patient wants | | 2018 | | CARDIOLOGY [place] | Pollo, Facility Worker | to take monitor | | | | [address] | | off. ) | | | | [address] | | | | | | [place] | | | | | | [address] | | | | | | [phone] | | | +--------+ + + + [...] Miscellaneous Notes Telephone Encounter - Ashley Chávez, Facility Worker - 08/30/2019 9:19 AM Bertagutierrez t called [...] thankful for the news. Patient stated understanding JDW:FUEL OIL TRUCK DRIVER-AAMA. [facility] umented in this encounter Plan [...] [address] | | | | | | [place] [address] | | | | | | [phone] | | | | | | | | +--------+ + + + + | 08/28/ | Office | Cardiology | Dora De La Torre | | | 2020 | Visit | | [address] | | | | | | [address] | | | | | | [place] [address] | | | | | | [phone] | | | | | | | | +--------+ + + + + documented as of this encounter Visit Diagnoses Not on filedocumented in this encounter"
--- OUTSIDE RECORDS SUMMARY | ~2020-05-21 | XMS | Encounter Summary ---
Demographics + + + | Address | [address] [facility] | | | [place] [address] | + + + | Home Phone [...] [place] | | | | | [address] | | + + + + + Care Team Providers + +------+ + | Care Subassembly Assembler Name | Role | Phone | [...] Closed | | Radiology | Diagnoses | [place], | | | | | | Thoracic or | Natalee L, | | | | | | lumbosacral | DEVOPS ENGINEER [address] | | | | | | neuritis or | [address] | | | | | | | [address] | | | | | | radiculitis, | [place], | | | | | | unspecified | [place] [address] | | | | | | | Phone: | | | | | | Degeneration | [phone] | | | | | | of lumbar | Fax: | | | | | | or | [phone] | | | | | | lumbosacral [...] + + | 03/11/ | Hospital | [facility] | Natalee Andersen | Thoracic or | | 2013 | Encounter | MED CTR MRI [address] | L, DEVOPS ENGINEER [address] | lumbosacral neuritis | | | | [place], | [address] | or radiculitis, | | | | [place] [address] | [place] [address] | unspecified; | | | | [phone] | [phone] | Degeneration of | | | | [...] + + + +---------+ + + | [place]-3 Fatty | Take 1,000 mg by [...] - ONBASE SCAN [facility] - 03/20/2014 12:00 AM PDT documented [...] [place] | | | | | | [place] [address] | | | | | | [phone] | | | | | | | | +--------+ + + + + | 08/28/ | Office | Cardiology | Dora De La Torre | | | 2019 | Visit | | [address] M[address] | | | | | | [address] | | | | | | [place] [address] | | | | | | [phone] | | | | | | | [...] + | MISCELLANEOUS LAB | | | [phone] | + +---------+ + + | MISCELANIOUS LAB | | | [phone] | + +---------+ + + documented in this encounter Visit Diagnoses + + | Diagnosis | + + | Thoracic or lumbosacral neuritis or radiculitis, unspecified | + + | Degeneration of lumbar or lumbosacral intervertebral disc | + + documented in this encounter"
--- OUTSIDE RECORDS SUMMARY | ~2020-05-21 | XMS | Encounter Summary ---
Demographics + + + | Address | [address] [facility] | | | [place] [address] | + + + | Home Phone [...] [place], [place] | | | | | [address] | | + + + + + Care Team Providers + +------+ + | Care Grain Manager Name | Role | Phone | + +------+ + PCP | Unavailable | + +------+ + Encounter Details +--------+ + + + + | Date | Type | Department | Care Team | Description | +--------+ + + + + | 07/23/ | Hospital | [facility] | | | | 1992 - | Encounter | MED CTR GENERIC PSY | | | | | | CONV DEPT [address] | | | | 07/28/ | | [address], | | | | 1992 | | [place] [address] | | | | | | [phone] | | | +--------+ + + + [...] [address] | | | | | | [place] [address] | | | | | | [phone] | | | | | | | | +--------+ + + + + | 08/28/ | Office | Cardiology | Dora De La Torre | | | 2019 | Visit | | [address] | | | | | | [address] | | | | | | [place] [address] | | | | | | [phone] | | | | | | | | +--------+ + + + + documented as of this encounter Visit Diagnoses Not on filedocumented in this encounter"
--- OUTSIDE RECORDS SUMMARY | ~2020-05-21 | XMS | Encounter Summary ---
Demographics + + + | Address | [address] [facility] | | | [place] [address] | + + + | Home Phone [...] [place] | | | | | [address] | | + + + + + Care Team Providers + +------+ + | Care Operations And Maintenance Supervisor Name | Role | Phone [...] + + | 08/16/ | Documentati | [facility] | Katharine Moncada, | Other (urgent | | 2019 | on | CARDIOLOGY [place] | Technologist | report) | | | | [address] | | | | | | [place] | | | | | | [address] | | | | | | [phone] | | | +--------+ + + + [...] | | | | | [place] [address] | | | | | | [phone] | | | | | | | | +--------+ + + + + | 08/28/ | Office | Cardiology | Dora De La Torre | | | 2020 | Visit | | [address] M[address] | | | | | | [address] | | | | | | [place] [address] | | | | | | [phone] | | | | | | | | +--------+ + + + + documented as of this encounter Visit Diagnoses Not on filedocumented in this encounter"
--- OUTSIDE RECORDS SUMMARY | ~2020-05-21 | XMS | Encounter Summary ---
Demographics + + + | Address | [address] [facility] | | | [place] [address] | + + + | Home Phone [...] [place] | | | | | [address] | | + + + + + Care Team Providers + +------+ + | Care Kiln Pusher Name | Role | Phone | [...] | SLEEP DISORDER [address] | [address] | | | | | [address] [place] | [place], [place] | | | | | [place] [address] | [address] | | | | | [phone] | | | +--------+ + + + [...] [address] | | | | | | [place] [address] | | | | | | [phone] | | | | | | | | +--------+ + + + + | 08/28/ | Office | Cardiology | Dora De La Torre | | | 2019 | Visit | | CAROLINE Mendez [address] | | | | | | [address] | | | | | | [place] [address] | | | | | | [phone] | | | | | | | | +--------+ + + + + documented as of this encounter Visit Diagnoses Not on filedocumented in this encounter"
--- OUTSIDE RECORDS SUMMARY | ~2020-05-21 | XMS | Encounter Summary ---
Demographics + + + | Address | [address] [facility] | | | [place] [address] | + + + | Home Phone [...] [place] | | | | | [address] | | + + + + + Care Team Providers + +------+ + | Care Rebrander Name | Role | Phone | + [...] | Transcriptions | + + | Interface, Morning Babysitter In - 11/04/2006 3:03 AM PST | | [address] | | [place], [place] [address] [facility] and | | ClinicsOPERATION RECORDMed Rec [...] skin retractor was put in place. The [place] elevators wereused to separate the | | [...]
--- OUTSIDE RECORDS SUMMARY | ~2020-05-21 | XMS | Encounter Summary ---
Demographics + + + | Address | [address] [facility] | | | [place] [address] | + + + | Home Phone [...] [place] | | | | | [address] | | + + + + + Care Team Providers + +------+ + | Care Race Car Mechanic Name | Role | Phone | [...] | | | | | ECHO | [place], [place] | | | | | | Complete | [address] | | | | | | | Phone: | | | | | | | [phone] | | | | | | | Fax: | | | | | | | [phone] | | + +--------+ + + + + Reason for Visit + + + | Reason | Comments | + + + | Follow-up | 6 month | + + + Encounter Details +--------+---------+ + + + | Date | Type | Department | Care Team | Description | +--------+---------+ + + + | 04/03/ | Office | [facility] | Desiree Peterson DO | Left bundle branch | | 2020 | Visit | CARDIOLOGY [place] | [address] | block (Primary Dx); | | | | [address] | [place], [place] | Benign essential | | | | [address] | [address] | HTN; New onset left | | | | [place], [place] | | bundle branch block | | | | [address] | | (LBBB); Obesity, | | | | [phone] | | Class III, BMI | | | | | | 40-49.9 (morbid | | | | | | obesity) ([facility]); | | | | | | [...] Peterson DO - 04/03/2020 10:20 AM PDT [facility] Cardiology Follow Up Note Reason for [...] rtake in exercise. She recently got a [employer] and has been walking him more regularly. 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 Blood Glucose Monitoring Suppl (InThrMaIO FLEX SYSTEM) w/Device KIT by Does not ap ply route. budesonide-formoterol (SYMBICORT) 160-4.5 MCG/ACT inhaler Inhale 2 puffs into the lungs 2 (two) times daily. Calcium Carbonate Antacid 1000 MG tablet Take 1,000 mg by mouth 3 (three) times daily. Cholecalciferol (VITAMIN D3) 09423 units CAPS Take by mouth once a [...] ALT 76, alkaline phosphatase 134. Labs: 10/20/2019:( [facility]) CBC: WBC 7.1, RBC 4.93, hemoglobin [...] | | | | | [place] [address] | | | | | | [phone] | | | | | | | | +--------+ + + + + | 08/28/ | Office | Cardiology | Dora De La Torre | | | 2020 | Visit | | [address] Mendez [address] | | | | | | [address] | | | | | | [place] [address] | | | | | | [phone] | | | | | | | [...]
--- OUTSIDE RECORDS SUMMARY | ~2020-05-21 | XMS | Encounter Summary ---
Demographics + + + | Address | [address] [facility] | | | [place] [address] | + + + | Home Phone [...] [place] | | | | | [address] | | + + + + + Care Team Providers + +------+ + | Care Acetylene Cutter Name | Role | Phone | [...] | 07/29/ | Telephone | [facility] | Frandy Cagle, | Other (multiple | | 2013 | | NEUROSURGERY [address] | DO [address] | questions) | | | | [facility] | [address] [place], [place] | | | | | [place], [place] | [id number] | | | | | [address] | | | | | | [phone] | | | +--------+ + + + [...] Modules accepted: Orders elephone Encounter - Frandy Cgale DO - 07/29/2014 1:50 PM PDTLets try a medrol dosepak and give it a week . If no better after that, call us and I might get a repeat MRI. [place] ordered. Thanks. ddendum Note - Shayne Aragon [...] - 07/29/2014 11:19 AM PDTCall [facility] get fur ther information. She [...] refill be mailed to her for her [place] 10/325mg which was given to her on [...] | | | | | [place] [address] | | | | | | [phone] | | | | | | | | +--------+ + + + + | 08/28/ | Office | Cardiology | Dora De La Torre | | | 2019 | Visit | | [address] | | | | | | [address] | | | | | | [place] [address] | | | | | | [phone] | | | | | | | | +--------+ + + + + documented as of this encounter Visit Diagnoses Not on filedocumented in this encounter"
--- OUTSIDE RECORDS SUMMARY | ~2020-05-21 | XMS | Encounter Summary ---
Demographics + + + | Address | [address] [facility] | | | [place] [address] | + + + | Home Phone [...] [place] | | | | | [address] | | + + + + + Care Team Providers + +------+ + | Care Lab Technologist Name | Role | Phone | + +------+ + | Natalee Andersen NP | PCP | | + +------+ + Encounter Details +--------+ + + + + | Date | Type | Department | Care Team | Description | +--------+ + + + + | 06/25/ | Hospital | [facility] | Frandy Teresa, | Diabetes mellitus | | 2014 | Encounter | MED CTR OR INTRA OP | DO [address] | (HCC) (Primary Dx) | | | | [address] | [address] [place], [place] | | | | | [place], [place] | [address] | | | | | [address] | | | | | | [phone] | | | +--------+ + + + [...] + + + +---------+ + + | [place]-3 Fatty | Take 1,000 mg by | [...] this en counter H&P Notes CHAPITO ABREU [facility] - [...] stenosis, lumbar region, without neurogenic claudication ). Pulmonary Disease Specialist visit is in response to an electronic spiritual care consult request. Patient wa s resting comfortably in bed; she was attended by her mom and dad - both sate nearby and see med very attentive and supportive. Cindy is Gnosticism, attends [employer], and is strong in her rangel. She is excited about taking care of her back problem and fe els very secure in Dr. Teresa's care. She welcomed prayer, and expressed appreciation for [facility] visit. Follow up with regular [...] [place] | | | | | | [place] [address] | | | | | | [phone] | | | | | | | | +--------+ + + + + | 08/28/ | Office | Cardiology | Dora De La Torre | | | 2019 | Visit | | [address] | | | | | | [address] [place] | | | | | | [place] [address] | | | | | | [phone] | | | | | | | [...] | | MEDICAL | | | | mL/min/1.48a9Zzrt than | | CENTER - | | [...] + | [facility] | [address] | [place] | [phone] | | [facility] | | [address] | | | - LABORATORY | | | | + + + + + | [facility] | [address] | [place] | | | [facility] | | [address] | | | - LABORATORY [...] + | [facility] | [address] | [place] | [phone] | | [facility] | | [address] | | | - LABORATORY | | | | + + + + + | [facility] | [address] | [place], [place] | | | [facility] | | [address], [facility] | | [...] [address] | [place] | [phone] | | [facility] | | [address] | | | - LABORATORY | | | | + + + + + | [facility] | [address] | [place] | | | [facility] | | [address] | | | - LABORATORY [...] | | [facility] | | [address] | | | - BLOOD BANK | [...] + | [facility] | [address] | [place], [place] | [phone] | | [facility] | | [address] | | | - LABORATORY | | | | + + + + + | [facility] | [address] | [place], [place] | | | [facility] | | [address] | | | - LABORATORY [...]
--- OUTSIDE RECORDS SUMMARY | ~2020-05-21 | XMS | Encounter Summary ---
Demographics + + + | Address | [address] [facility] [address] | | | [place] [address] | + + + | Home Phone [...] [place] | | | | | [address] | | + + + + + Care Team Providers + +------+ + | Care Lumber Chain Offbearer Name | Role | Phone | [...] + + | 08/14/ | Documentati | [facility] | Katharine Moncada, | Other (urgent | | 2019 | on | CARDIOLOGY [place] | Technologist | report) | | | | [address] | | | | | | [place] | | | | | | [address] | | | | | | [phone] | | | +--------+ + + + [...] | | | | | [place] [address] | | | | | | [phone] | | | | | | | | +--------+ + + + + | 08/28/ | Office | Cardiology | Dora De La Torre | | | 2020 | Visit | | [address] | | | | | | [address] | | | | | | [place] [address] | | | | | | [phone] | | | | | | | | +--------+ + + + + documented as of this encounter Visit Diagnoses Not on filedocumented in this encounter"
--- OUTSIDE RECORDS SUMMARY | ~2020-05-21 | XMS | Encounter Summary ---
Demographics + + + | Address | [address] [facility] | | | [place] [address] | + + + | Home Phone [...] [place] | | | | | [address] | | + + + + + Care Team Providers + +------+ + | Care Facilitator Name | Role | Phone | [...] + + | 09/19/ | Telephone | [facility] | Ashley Chávez | Other (Patient | | 2018 | | CARDIOLOGY [place] Abad, Insole Doubler | calling to be seen | | | | [address] | | mirella. ) | | | | [place] | | | | | | [address] | | | | | | [phone] | | | +--------+ + + + [...] Miscellaneous Notes Telephone Encounter - Ashley Chávez Insole Doubler - 09/19/2019 10:41 AM PSTCall m cierra to patient to advise of Dr. Peterson's notes. Patient stated understanding. Patient asked why she couldn't be seen sooner, and I reminded her that we offered her a monae ner appointment that she turned down. Patient said thank you and hung up. CLAYTONW:MANGO. el ephone Encounter - Ashley Chávez Insole Doubler - 09/19/2019 10:40 AM PST Dora De La Torre, CAROLINE Peterson DO; Ashley Chávez Insole Doubler So just an FYI: we offered her appointment today at 3 pm but she turned it down, and said she would keep scheduled appt. el ephone Encounter - Ashley Chávez Insole Doubler - 09/19/2019 10:38 AM PST----- Mess age [...] she needs to be seen by a pool attendant. I have asked Lizeth to call her [...] help her pulse? Please advise. Thank you! [facility] rocky in this encounter Plan of Treatment [...] [address] | | | | | | [place] [address] | | | | | | [phone] | | | | | | | | +--------+ + + + + | 08/28/ | Office | Cardiology | Dora De La Torre | | | 2020 | Visit | | [address] | | | | | | [address] | | | | | | [place] [address] | | | | | | [phone] | | | | | | | | +--------+ + + + + documented as of this encounter Visit Diagnoses Not on filedocumented in this encounter"
--- OUTSIDE RECORDS SUMMARY | ~2020-05-21 | XMS | Encounter Summary ---
Demographics + + + | Address | [address] [facility] | | | [place] [address] | + + + | Home Phone [...] [place], [place] | | | | | [address] | | + + + + + Care Team Providers + +------+ + | Care Resident Physician In Radiology Name | Role | Phone | + +------+ + PCP | Unavailable | + +------+ + Encounter Details +--------+ + + + + | Date | Type | Department | Care Team | Description | +--------+ + + + + | 02/22/ | Hospital | [facility] | | | | 1996 - | Encounter | MED CTR GENERIC PSY | | | | | | CONV DEPT [address] | | | | 02/26/ | | [place], | | | | 1996 | | [place] [address] | | | | | | [phone] | | | +--------+ + + + [...] [place] | | | | | | [place] [address] | | | | | | [phone] | | | | | | | | +--------+ + + + + | 08/28/ | Office | Cardiology | Dora De La Torre | | | 2019 | Visit | | [address] | | | | | | [address] | | | | | | [place] [address] | | | | | | [phone] | | | | | | | | +--------+ + + + + documented as of this encounter Visit Diagnoses Not on filedocumented in this encounter"
--- OUTSIDE RECORDS SUMMARY | ~2020-05-21 | XMS | Encounter Summary ---
Demographics + + + | Address | [address] [facility] | | | [place] [address] | + + + | Home Phone [...] [place], [place] | | | | | [address] | | + + + + + Care Team Providers + +------+ + | Care Senior Net Software Engineer Name | Role | Phone | + +------+ + PCP | Unavailable | + +------+ + Encounter Details +--------+ + + + + | Date | Type | Department | Care Team | Description | +--------+ + + + + | 07/17/ | Hospital | [facility] | | | | 1997 - | Encounter | MED CTR GENERIC PSY | | | | | | CONV DEPT [address] | | | | 07/25/ | | [place], | | | | 1997 | | [place] [address] | | | | | | [phone] | | | +--------+ + + + [...] [address] | | | | | | [place] [address] | | | | | | [phone] | | | | | | | | +--------+ + + + + | 08/28/ | Office | Cardiology | Dora De La Torre | | | 2019 | Visit | | [address] | | | | | | [address] | | | | | | [place] [address] | | | | | | [phone] | | | | | | | | +--------+ + + + + documented as of this encounter Visit Diagnoses Not on filedocumented in this encounter"
--- OUTSIDE RECORDS SUMMARY | ~2020-05-21 | XMS | Encounter Summary ---
Demographics + + + | Address | [address] [facility] | | | [place] [address] | + + + | Home Phone [...] [place], [place] | | | | | [address] | | + + + + + Care Team Providers + +------+ + | Care Commodities Manager Name | Role | Phone | + +------+ + PCP | Unavailable | + +------+ + Encounter Details +--------+ + + + + | Date | Type | Department | Care Team | Description | +--------+ + + + + | 02/02/ | Hospital | [facility] | Serafin Bautista | | | 2011 | Encounter | MED CTR XRAY [address] | T, [address] | | | | [place] | [place] | | | | | [place] [address] | [address] | | | | | [phone] | | | +--------+ + + + [...] [address] | | | | | | [place] [address] | | | | | | [phone] | | | | | | | | +--------+ + + + + | 08/28/ | Office | Cardiology | Dora De La Torre | | | 2019 | Visit | | [address] | | | | | | [address] | | | | | | [place] [address] | | | | | | [phone] | | | | | | | [...] [facility] Diagnostic Imaging Department | [place] | | [address] [facility] | [place] [facility] | | PROCEDURE: EPIDURAL STEROID | [...] Transcribed Date/Time: | | | 02/03/2012 18:45 Contracting Officer: <Electronically Signed | | | by Serafin Bautista MD> 02/14/12 0916 | | + + + + + | Procedure Note | + + | Juan, Rad Conversion - 11/30/2013 5:06 PM [facility] | | Diagnostic Imaging Department | | [address] [facility] | | | | | [...] | Transcribed Date/Time: 02/03/2012 18:45 | | Contracting Officer: | | <Electronically Signed by Serafin Bautista [...]
--- OUTSIDE RECORDS SUMMARY | ~2020-05-21 | XMS | Encounter Summary ---
Demographics + + + | Address | [address] [facility] | | | [place] [address] | + + + | Home Phone [...] + | Araceli Silbey | ECON | [place] | | | | | [address] | | + + + + + Care Team Providers + +------+ + | Care Client Services Manager Name | Role | Phone [...] | | | | | | | [address] | | | | | | | Phone: | | | | | | | [phone] | | | | | | | Fax: | | | | | | | [phone] | | +--------+--------+ + + + + Encounter Details +--------+---------+ + + + | Date | Type | Department | Care Team | Description | +--------+---------+ + + + | 02/27/ | Office | [facility] | Baudilio Newman | Neuropathy (Primary | | 2015 | Visit | NEUROLOGY LAURIE | MD Pollo Need updated | Dx); Sleep apnea; | | | | [address] [facility], | address | Stroke (HCC); | | | | [address] [place] | | Thyroid disease | | | | [place] [address] | | | | | | [phone] | | | +--------+---------+ + + + [...] supply of blood, brain tissue quickly dies. [phone] [employer] [place] [address]. All righ ts reserved. This information is not intended as a substitute for professional medical care. Always follow your healthcare professional's instructions. documented in this encounter Progress Notes Baudilio Newman MD - 02/27/2015 10:31 AM PDTFormatting of this note might be differen t from the original. Baudilio Newman MD [address] [place] [address], [address] [place] [address] Neurology Outpatient New Patient Note Referring Provider: [...] history. Notes from her recent hospitalization at [place] were reviewed in detail. Ms. Arndt started feeling off in the evening of 02/01. She felt dizzy and laid down to slee p. Upon waking, she felt her right side was numb. She tried to get up to go to the bathroom and realized she was weak as well on the right. She was taken to [facility] where she was diagnosed with a [...] systol ically. She was reevaluated in the [facility] ED for one such event [...] . This specimen was characterized at [facility], but the report is not currently available for [facility]. Unfortunately, Ms. Arndt notes that her [...] Laterality: N/A; Surgeon: Frandy castellanos DO; Location: [facility] MAIN OR Current Medications: Outpatient [...] tablet Take 15 mg by mouth nightly. [place]-3 Fatty Acids (FISH OIL CONCENTRATE) 1000 MG [...] BMI 46.04 kg /m2 Neck Circumference: 14" [place] Sleepiness Scale: 2 General: well developed and [...] Romberg test negative Radiographic Review: CTA from [facility] reviewed on iSITE. No significant stenoses seen [...] No results found for this basename: hba1c, kuu2fyn, ldl, ldldirect, ldlext, dldlex Lab Results Component [...] [address] | | | | | | [place] [address] | | | | | | [phone] | | | | | | | | +--------+ + + + + | 08/28/ | Office | Cardiology | Dora De La Torre | | | 2020 | Visit | | [address] | | | | | | [address] | | | | | | [place] [address] | | | | | | [phone] | | | | | | | [...]
--- OUTSIDE RECORDS SUMMARY | ~2020-05-21 | XMS | Encounter Summary ---
Demographics + + + | Address | [address] [facility] | | | [place] [address] | + + + | Home Phone [...] [place] | | | | | [address] | | + + + + + Care Team Providers + +------+ + | Care Extension Associate Name | Role | Phone | [...] | Frandy Simons DO | [address] | | | | | of skin | [address] | [place], | | | | | sensation | [address] | [place] | | | | | Arthrodesis | [place], [place] | [address] | | | | | status Left | [address] | Phone: | | | | | leg | Phone: | [phone] | | | | | weakness | [phone] | Fax: | | | | | Procedures | Fax: | [phone] | | | | | MRI Lumbar | [phone] | | | | | | Spine [...] | Frandy Simons DO | [address] | | | | | of skin | [address] | [place], | | | | | sensation | [address] | [place] | | | | | Arthrodesis | [place] | [address] | | | | | status Left | [address] | Phone: | | | | | leg | Phone: | [phone] | | | | | weakness | [phone] | Fax: | | | | | Procedures | Fax: | [phone] | | | | | MRI Lumbar | [phone] | | | | | | Spine wo | | | | | | | Contrast | | | +--------+--------+ + + + + Encounter Details +--------+ + + + + | Date | Type | Department | Care Team | Description | +--------+ + + + + | 08/19/ | Hospital | [facility] | Frandy Teresa, | Status post lumbar | | 2013 | Encounter | MED CTR MRI [address] | DO [address] | spinal fusion; Left | | | | [place], | [address] [place] | leg numbness; Left | | | | [place] [address] | [address] | leg weakness | | | | [phone] | | | +--------+ + + + [...] [place] | | | | | | [place] [address] | | | | | | [phone] | | | | | | | | +--------+ + + + + | 08/28/ | Office | Cardiology | Dora De La Torre | | | 2019 | Visit | | [address] | | | | | | [address] | | | | | | [place] [address] | | | | | | [phone] | | | | | | | [...] the round structure with high T1 and [id number] in the right L3 vertebral | | [...] + | MISCELLANEOUS LAB | | | [phone] | + +---------+ + + | MISCELANIOUS LAB | | | [phone] | + +---------+ + + documented in [...]
--- OUTSIDE RECORDS SUMMARY | ~2020-05-21 | XMS | Encounter Summary ---
Demographics + + + | Address | [address] [facility] | | | [place] [address] | + + + | Home Phone [...] [place] | | | | | [address] | | + + + + + Care Team Providers + +------+ + | Care Car Rental Sales Assistant Name | Role | Phone [...] SLEEP DISORDER [address] | [address] | Dx) | | | | [address] | [place] | | | | | [place] [address] | [address] | | | | | [phone] | | | +--------+---------+ + + + [...] encounter Progress Notes Gail Cadet, Master of Backyard Brains - 04/30/2015 11:12 AM PDTFormatting of this note might be khoi rivas from the original. 04/30/15 [address] [place] Depression Inventory-II Depression Score 9 - Minimal depression Insomnia Severity Index Insomnia Severity Index 13 [place] Sleepiness Scale Sitting and reading 3 Watching [...] appro priate paperwork. Thirty minutes were spent lywm-ev-opmm, with the majority of time spent i [...] | | | | | [place] [address] | | | | | | [phone] | | | | | | | | +--------+ + + + + | 08/28/ | Office | Cardiology | Dora De La Torre | | | 2020 | Visit | | [address] M[address] | | | | | | [address] | | | | | | [place] [address] | | | | | | [phone] | | | | | | | | +--------+ + + + + documented as of this encounter Visit Diagnoses + + | Diagnosis | + + | ROGERS on CPAP - Primary Obstructive sleep apnea (adult) (pediatric) | + + documented in this encounter"
--- OUTSIDE RECORDS SUMMARY | ~2020-05-21 | XMS | Encounter Summary ---
Demographics + + + | Address | [address] [facility] | | | [place] [address] | + + + | Home Phone [...] [place] | | | | | [address] | | + + + + + Care Team Providers + +------+ + | Care Management Coordinator Name | Role | Phone [...] | | | | | pain, | [place], [place] | | | | | | bilateral | [address] | | | | | | Degenerative | Phone: | | | | | | disc | [phone] | | | | | | disease, | Fax: | | | | | | lumbar | [phone] | | | | | | Spinal [...] [address] | [address] [place], [place] | (Primary Dx); Knee | | | | [place] | [address] | pain, bilateral; | | | | [address] | | DEGENERATIVE DISC | | | | [phone] | | DISEASE, LUMBAR | | | [...] | | | | | [place] [address] | | | | | | [phone] | | | | | | | | +--------+ + + + + | 08/28/ | Office | Cardiology | Dora De La Torre | | | 2020 | Visit | | [address] | | | | | | [address] | | | | | | [place] [address] | | | | | | [phone] | | | | | | | [...]
--- OUTSIDE RECORDS SUMMARY | ~2020-05-21 | XMS | Encounter Summary ---
Demographics + + + | Address | [address] [facility] | | | [place] [address] | + + + | Home Phone [...] [place] | | | | | [address] | | + + + + + Care Team Providers + +------+ + | Care Cathode Washer Name | Role | Phone | [...] + + | 08/20/ | Documentati | [facility] | Katharine Moncada, | Other (urgent | | 2019 | on | CARDIOLOGY [place] | Technologist | report) | | | | [address] | | | | | | [place] | | | | | | [address] | | | | | | [phone] | | | +--------+ + + + [...] | | | | | [place] [address] | | | | | | [phone] | | | | | | | | +--------+ + + + + | 08/28/ | Office | Cardiology | Dora De La Torre | | | 2020 | Visit | | [address] | | | | | | [address] | | | | | | [place] [address] | | | | | | [phone] | | | | | | | | +--------+ + + + + documented as of this encounter Visit Diagnoses Not on filedocumented in this encounter"
--- OUTSIDE RECORDS SUMMARY | ~2020-05-21 | XMS | Encounter Summary ---
Demographics + + + | Address | [address] [facility] | | | [place] [address] | + + + | Home Phone [...] [place], [place] | | | | | [address] | | + + + + + Care Team Providers + +------+ + | Care Automobile Service Station Attendant Name | Role | Phone | + +------+ + PCP | Unavailable | + +------+ + Encounter Details +--------+ + + + + | Date | Type | Department | Care Team | Description | +--------+ + + + + | 05/23/ | Hospital | [facility] | [place], | | | 2011 | Encounter | MED CTR XRAY [address] | MD [address] | | | | | [place] | [place] | | | | | [place] [address] | [address] | | | | | [phone] | | | +--------+ + + + [...] + + + +---------+ + + | [place]-3 Fatty | Take 1,000 mg by [...] | | | | | [place] [address] | | | | | | [phone] | | | | | | | | +--------+ + + + + | 08/28/ | Office | Cardiology | Dora De La Torre | | | 2019 | Visit | | [address] | | | | | | [address] | | | | | | [place] [address] | | | | | | [phone] | | | | | | | [...] Performed At | + + + | [facility] Diagnostic Imaging Department | [place] | | [address] [place] [address] | [facility] | | LUMBAR SPINE MR WITHOUT CONTRAST, [...] Transcribed Date/Time: | | | 05/23/2012 16:55 Hedis Review Nurse: <Electronically Signed | | | by Adriano Anne MD> 05/23/12 4345 | | + + + + + | Procedure Note | + + | Juan, Rad Conversion - 11/30/2013 5:47 PM [facility] | | Diagnostic Imaging Department [address] [facility] | | LUMBAR SPINE MR WITHOUT [...] 16:37 | |Transcribed Date/Time: 05/23/2012 16:55 | |Hedis Review Nurse: | |<Electronically Signed by Adriano Anne MD> 05/23/12 1725 | + + + +---------+ + + | Performing | Address | City/State/Zipcode | Phone Number | | Organization | | | | + +---------+ + + | [place] | | | | | [facility] | | | | + +---------+ + + documented in this encounter Visit Diagnoses Not on filedocumented in this encounter"
--- OUTSIDE RECORDS SUMMARY | ~2020-05-21 | XMS | Encounter Summary ---
Demographics + + + | Address | [address] [facility] | | | [place] [address] | + + + | Home Phone [...] [place] | | | | | [address] | | + + + + + Care Team Providers + +------+ + | Care Yard Conductor Name | Role | Phone | + [...] | abdominal | Martha, | [address], | | | | | pain GERD | [facility] [address] | [address] | | | | | (gastroesoph | [address] | [place], | | | | | ageal reflux | [address] | [place] [address] | | | | | disease) | [place], | Phone: | | | | | Fatty liver | [place] [address] | [phone] | | | | | DM | Phone: | Fax: | | | | | (diabetes | [phone] | [phone] | | | | | mellitus) | Fax: | | | | | | (HCC) | [phone] | | +--------+ + + + + + Reason for Visit + + + | Reason | Comments | + + + | Gastroesophageal | epigastric pain | | Reflux | | + + + Encounter Details +--------+---------+ + + + | Date | Type | Department | Care Team | Description | +--------+---------+ + + + | 03/06/ | Office | [facility] | [facility], | Epigastric abdominal | | 2012 | Visit | GASTROENTEROLOGY | FORTUNATO Thomas [address] | pain (Primary Dx); | | | | [address] | [address] | GERD | | | | [address] [place], [place] | [place] | (gastroesophageal | | | | [address] | [address] | reflux disease); | | | | [phone] | | Fatty liver; DM | | [...] ago by Dr. Saravanan Tsai, in [facility]. Colonoscopy was done 05/[address] Hamlin in [facility]. Allergies Allergen Reactions Demerol Duloxetine Erythromycin [...] Miscellaneous Notes Miscellaneous - ONBASE SCAN [facility] - 03/06/2013 12:00 AM PDT iscellaneous - ONBASE SCAN [facility] - 03/06/2013 12:00 AM PDTEle ctronically signed by Mariah Schulte at 04/09/2013 9:48 AM PDTMiscellaneous - ONBASE SCAN [facility] - 03/06/2013 12:00 AM PDT d [...] [address]U | | | | | | [place] [address] | | | | | | [phone] | | | | | | | | +--------+ + + + + | 08/28/ | Office | Cardiology | Dora De La Torre | | | 2019 | Visit | | [address] | | | | | | [address] | | | | | | [place] [address] | | | | | | [phone] | | | | | | | [...]
--- OUTSIDE RECORDS SUMMARY | ~2020-05-21 | XMS | Encounter Summary ---
Demographics + + + | Address | [address] [facility] [address] | | | [place] [address] | + + + | Home Phone [...] [place] | | | | | [address] | | + + + + + Care Team Providers + +------+ + | Care Hand Bander Name | Role | Phone | [...] [place] | | | | | | [address] | | | | | | [phone] | | | +--------+ + + + [...] | | | | | [place] [address] | | | | | | [phone] | | | | | | | | +--------+ + + + + | 08/28/ | Office | Cardiology | Dora De La Torre | | | 2020 | Visit | | [address] | | | | | | [address] | | | | | | [place] [address] | | | | | | [phone] | | | | | | | | +--------+ + + + + documented as of this encounter Visit Diagnoses Not on filedocumented in this encounter"
--- OUTSIDE RECORDS SUMMARY | ~2020-05-21 | XMS | Encounter Summary ---
Demographics + + + | Address | [address] [facility] [address] | | | [place] [address] | + + + | Home Phone [...] [place] | | | | | [address] | | + + + + + Care Team Providers + +------+ + | Care Client Application Support Specialist Name | Role | Phone [...] [address] | [address] [place], [place] | (Primary Dx) | | | | [place], [place] | [address] | | | | | [address] | | | | | | [phone] | | | +--------+ + + + [...] [address] | | | | | | [place] [address] | | | | | | [phone] | | | | | | | | +--------+ + + + + | 08/28/ | Office | Cardiology | Dora De La Torre | | | 2019 | Visit | | [address] | | | | | | [address] | | | | | | [place] [address] | | | | | | [phone] | | | | | | | [...] + | MISCELLANEOUS LAB | | | [phone] | + +---------+ + + | MISCELANIOUS LAB | | | [phone] | + +---------+ + + documented in this encounter Visit Diagnoses + + | Diagnosis | + + | Status post lumbar spinal fusion - Primary Arthrodesis status | + + documented in this encounter"
--- OUTSIDE RECORDS SUMMARY | ~2020-05-21 | XMS | Encounter Summary ---
Demographics + + + | Address | [address] [facility] | | | [place] [address] | + + + | Home Phone [...] [place] | | | | | [address] | | + + + + + Care Team Providers + +------+ + | Care Regional Rehabilitation Director Name | Role | Phone | [...] | | | [address] | [place] [address] | | | | | [place] [address] | | | | | | [phone] | | | +--------+ + + + [...] | | | | | [place] [address] | | | | | | [phone] | | | | | | | | +--------+ + + + + | 08/28/ | Office | Cardiology | Dora De La Torre | | | 2019 | Visit | | [address] | | | | | | [address] | | | | | | [place] [address] | | | | | | [phone] | | | | | | | [...]
--- OUTSIDE RECORDS SUMMARY | ~2020-05-21 | XMS | Encounter Summary ---
Demographics + + + | Address | [address] [facility] | | | [place] [address] | + + + | Home Phone [...] [place], [place] | | | | | [address] | | + + + + + Care Team Providers + +------+ + | Care Motor Vehicle Clerk Name | Role | Phone | + +------+ + PCP | Unavailable | + +------+ + Encounter Details +--------+ + + + + | Date | Type | Department | Care Team | Description | +--------+ + + + + | 12/06/ | Hospital | [facility] | | | | 1994 | Encounter | MED CTR LABORATORY | | | | | | [address] | | | | | | [place] | | | | | | [address] | | | | | | [phone] | | | +--------+ + + + [...] | | | | | [place] [address] | | | | | | [phone] | | | | | | | | +--------+ + + + + | 08/28/ | Office | Cardiology | Dora De La Torre | | | 2020 | Visit | | [address] | | | | | | [address] | | | | | | [place] [address] | | | | | | [phone] | | | | | | | | +--------+ + + + + documented as of this encounter Visit Diagnoses Not on filedocumented in this encounter"
--- OUTSIDE RECORDS SUMMARY | ~2020-05-21 | XMS | Encounter Summary ---
Demographics + + + | Address | [address] [facility] | | | [place] [address] | + + + | Home Phone [...] [place] | | | | | [address] | | + + + + + Care Team Providers + +------+ + | Care Inside Sales Administrator Name | Role | Phone | [...] + + | 10/22/ | Telephone | [facility] | Susu Peralta, | Other | | 2019 | | CARDIOLOGY [place] Nath RN | | | | | [address] | | | | | | [place], [place] | | | | | | [address] | | | | | | [phone] | | | +--------+ + + + [...] | | | | | [place] [address] | | | | | | [phone] | | | | | | | | +--------+ + + + + | 08/28/ | Office | Cardiology | Dora De La Torre | | | 2019 | Visit | | [address] | | | | | | [address] | | | | | | [place] [address] | | | | | | [phone] | | | | | | | | +--------+ + + + + documented as of this encounter Visit Diagnoses Not on filedocumented in this encounter"
--- OUTSIDE RECORDS SUMMARY | ~2020-05-21 | XMS | Encounter Summary ---
Demographics + + + | Address | [address] [facility] | | | [place] [address] | + + + | Home Phone [...] [place], [place] | | | | | [address] | | + + + + + Care Team Providers + +------+ + | Care Yard Manager Name | Role | Phone | + +------+ + PCP | Unavailable | + +------+ + Encounter Details +--------+ + + + + | Date | Type | Department | Care Team | Description | +--------+ + + + + | 08/21/ | Hospital | [facility] | | | | 1996 | Encounter | MED CTR LABORATORY | | | | | | [address] | | | | | | [place] | | | | | | [address] | | | | | | [phone] | | | +--------+ + + + [...] | | | | | [place] [address] | | | | | | [phone] | | | | | | | | +--------+ + + + + | 08/28/ | Office | Cardiology | Dora De La Torre | | | 2020 | Visit | | [address] | | | | | | [address] | | | | | | [place] [address] | | | | | | [phone] | | | | | | | | +--------+ + + + + documented as of this encounter Visit Diagnoses Not on filedocumented in this encounter"
--- OUTSIDE RECORDS SUMMARY | ~2020-05-21 | XMS | Encounter Summary ---
Demographics + + + | Address | [address] [facility] | | | [place] [address] | + + + | Home Phone [...] [place] | | | | | [address] | | + + + + + Care Team Providers + +------+ + | Care General Surgery Physician Assistant Name | Role | Phone [...] + | 08/13/ | Documentati | [facility] | Katharine Moncada, | Other (urgent | | 2019 | on | CARDIOLOGY [place] | Technologist | report) | | | | [address] | | | | | | [place] | | | | | | [address] | | | | | | [phone] | | | +--------+ + + + [...] | | | | | [place] [address] | | | | | | [phone] | | | | | | | | +--------+ + + + + | 08/28/ | Office | Cardiology | Dora De La Torre | | | 2020 | Visit | | [address] | | | | | | [address] | | | | | | [place] [address] | | | | | | [phone] | | | | | | | | +--------+ + + + + documented as of this encounter Visit Diagnoses Not on filedocumented in this encounter"
--- OUTSIDE RECORDS SUMMARY | ~2020-05-21 | XMS | Encounter Summary ---
Demographics + + + | Address | [address] [facility] | | | [place] [address] | + + + | Home Phone [...] [place] | | | | | [address] | | + + + + + Care Team Providers + +------+ + | Care Table Maker Name | Role | Phone | [...] + + | 09/10/ | Documentati | [facility] | Katharine Moncada, | Other (urgent | | 2019 | on | CARDIOLOGY [place] | Technologist | report) | | | | [address] | | | | | | [place] | | | | | | [address] | | | | | | [phone] | | | +--------+ + + + [...] | | | | | [place] [address] | | | | | | [phone] | | | | | | | | +--------+ + + + + | 08/28/ | Office | Cardiology | Dora De La Torre | | | 2020 | Visit | | [address] | | | | | | [address] | | | | | | [place] [address] | | | | | | [phone] | | | | | | | | +--------+ + + + + documented as of this encounter Visit Diagnoses Not on filedocumented in this encounter"
--- OUTSIDE RECORDS SUMMARY | ~2020-05-21 | XMS | Encounter Summary ---
Demographics + + + | Address | [address] [facility] | | | [place] [address] | + + + | Home Phone [...] [place], [place] | | | | | [address] | | + + + + + Care Team Providers + +------+ + | Care Cutting Tool Sharpener Name | Role | Phone | + +------+ + PCP | Unavailable | + +------+ + Encounter Details +--------+ + + + + | Date | Type | Department | Care Team | Description | +--------+ + + + + | 09/24/ | Hospital | [facility] | | | | 1993 | Encounter | MED CTR LABORATORY | | | | | | [address] | | | | | | [place] | | | | | | [address] | | | | | | [phone] | | | +--------+ + + + [...] | | | | | [place] [address] | | | | | | [phone] | | | | | | | | +--------+ + + + + | 08/28/ | Office | Cardiology | Dora De La Torre | | | 2020 | Visit | | [address] | | | | | | [address] | | | | | | [place] [address] | | | | | | [phone] | | | | | | | | +--------+ + + + + documented as of this encounter Visit Diagnoses Not on filedocumented in this encounter"
--- OUTSIDE RECORDS SUMMARY | ~2020-05-21 | XMS | Encounter Summary ---
Demographics + + + | Address | [address] [facility] | | | [place] [address] | + + + | Home Phone [...] [place], [place] | | | | | [address] | | + + + + + Care Team Providers + +------+ + | Care Plasma Processing Technician Name | Role | Phone | + +------+ + PCP | Unavailable | + +------+ + Encounter Details +--------+ + + + + | Date | Type | Department | Care Team | Description | +--------+ + + + + | 03/13/ | Hospital | [facility] | | | | 1996 - | Encounter | MED CTR GENERIC OP | | | | | | CONV DEPT [address] | | | | 03/21/ | | [address], | | | | 1996 | | [place] [address] | | | | | | [phone] | | | +--------+ + + + [...] [address] | | | | | | [place] [address] | | | | | | [phone] | | | | | | | | +--------+ + + + + | 08/28/ | Office | Cardiology | Dora De La Torre | | | 2019 | Visit | | [address] | | | | | | [address] | | | | | | [place] [address] | | | | | | [phone] | | | | | | | | +--------+ + + + + documented as of this encounter Visit Diagnoses Not on filedocumented in this encounter"
--- OUTSIDE RECORDS SUMMARY | ~2020-05-21 | XMS | Encounter Summary ---
Demographics + + + | Address | [address] [facility] | | | [place] [address] | + + + | Home Phone [...] [place] | | | | | [address] | | + + + + + Care Team Providers + +------+ + | Care Certified Coder Name | Role | Phone | [...] | | | | | | [place], | | | | | | [place] [address] | | | | | | [phone] | | | +--------+ + + + [...] | + +---------+ + + | [facility] DEPARTMENT OF | | | | | RADIOLOGY | | | | + +---------+ + + documented in this encounter Visit Diagnoses Not on filedocumented in this encounter"
--- OUTSIDE RECORDS SUMMARY | ~2020-05-21 | XMS | Encounter Summary ---
Demographics + + + | Address | [address] [facility] | | | [place] [address] | + + + | Home Phone [...] [place], [place] | | | | | [address] | | + + + + + Care Team Providers + +------+ + | Care Hand Binder Stripper Name | Role | Phone | + +------+ + PCP | Unavailable | + +------+ + Encounter Details +--------+ + + + + | Date | Type | Department | Care Team | Description | +--------+ + + + + | 02/02/ | Hospital | [facility] | | | | 1997 - | Encounter | MED CTR GENERIC PSY | | | | | | CONV DEPT [address] | | | | 02/05/ | | [address], | | | | 1997 | | [place] [address] | | | | | | [phone] | | | +--------+ + + + [...] [address] | | | | | | [place] [address] | | | | | | [phone] | | | | | | | | +--------+ + + + + | 08/28/ | Office | Cardiology | Dora De La Torre | | | 2019 | Visit | | [address] | | | | | | [address] | | | | | | [place] [address] | | | | | | [phone] | | | | | | | | +--------+ + + + + documented as of this encounter Visit Diagnoses Not on filedocumented in this encounter"
--- OUTSIDE RECORDS SUMMARY | ~2020-05-21 | XMS | Encounter Summary ---
Demographics + + + | Address | [address] [facility] | | | [place] [address] | + + + | Home Phone [...] [place] | | | | | [address] | | + + + + + Care Team Providers + +------+ + | Care Mail Service Coordinator Name | Role | Phone [...] + + | 06/27/ | Office | [facility] | Yecenia Richardson, | Hypertension, | | 2019 | Visit | CARDIOLOGY [place] | MD Nitin RODRIGUES | unspecified type | | | | [address] | [place], [place] | (Primary Dx); | | | | [address] [facility] | [address] | Bradycardia | | | | [place] | | | | | | [address] | | | | | | [phone] | | | +--------+---------+ + + + [...] urgent basis. Had an appointment today in [facility]. She has been feeling dizzy [...] Take by mouth. Blood Glucose Monitoring Suppl ([employer] VERIO FLEX SYSTEM) w/Device KIT by Does [...] mg by mouth Daily. Cholecalciferol (VITAMIN D-3) 33660 units CAPS Take 50,000 Units by mouth [...] tablet Take 10 mg by mouth nightly. [place]-3 Fatty Acids (FISH OIL CONCENTRATE) 1000 MG [...] [address] | | | | | | [place] [address] | | | | | | [phone] | | | | | | | | +--------+ + + + + | 08/28/ | Office | Cardiology | Dora De La Torre | | | 2019 | Visit | | [address] | | | | | | [address] | | | | | | [place] [address] | | | | | | [phone] | | | | | | | [...]
--- OUTSIDE RECORDS SUMMARY | ~2020-05-21 | XMS | Encounter Summary ---
Demographics + + + | Address | [address] [facility] | | | [place] [address] | + + + | Home Phone [...] [place] | | | | | [address] | | + + + + + Care Team Providers + +------+ + | Care Internal Control Specialist Name | Role | Phone [...] Rd | | | | | | [place], [place] | | | | | | [address] | | | +--------+ + + + [...]
--- OUTSIDE RECORDS SUMMARY | ~2020-05-21 | XMS | Encounter Summary ---
Demographics + + + | Address | [address] [facility] | | | [place] [address] | + + + | Home Phone [...] [place] | | | | | [address] | | + + + + + Care Team Providers + +------+ + | Care Broadcast Meteorologist Name | Role | Phone | + [...] | Transcriptions | + + | Interface, Etcher Aircraft In - 10/24/2006 3:09 AM PST | | [facility] | | Road [place], [place] [address] [place] | | [facility] HospitalOPERATION RECORDMed Rec No.: [id number] Date: | [...]
--- OUTSIDE RECORDS SUMMARY | ~2020-05-21 | XMS | Encounter Summary ---
Demographics + + + | Address | [address] [facility] [address] [facility] | | | [place] [address] | + + + | Home Phone [...] [place] | | | | | [address] | | + + + + + Care Team Providers + +------+ + | Care Coordinate Measuring Machine Programmer Name | Role | Phone | [...] + + | 08/09/ | Clinical | [facility] | Desiree Peterson DO | Syncope, unspecified | | 2019 | Support | CARDIOLOGY [place] | [address] | syncope type | | | | [address] | [place], [place] | | | | | [place] [address] | [address] | | | | | [place] | | | | | | [address] | Dora De La Torre | | | | | [phone] | [address] | | | | | | [address] | | | | | | [place] [address] | | | | | | [phone] | | | | | | | [...] [address] | | | | | | [place] [address] | | | | | | [phone] | | | | | | | | +--------+ + + + + | 08/28/ | Office | Cardiology | Dora De La Torre | | | 2019 | Visit | | [address] | | | | | | [address] | | | | | | [place] [address] | | | | | | [phone] | | | | | | | | +--------+ + + + + documented as of this encounter Visit Diagnoses + + | Diagnosis | + + | Syncope, unspecified syncope type | + + documented in this encounter"
--- OUTSIDE RECORDS SUMMARY | ~2020-05-21 | XMS | Encounter Summary ---
Demographics + + + | Address | [address] [facility] | | | [place] [address] | + + + | Home Phone [...] [place] | | | | | [address] | | + + + + + Care Team Providers + +------+ + | Care Operations Research Group Manager Name | Role | Phone | [...] + + | 05/08/ | Telephone | [facility] | Dora De La Torre | Testing | | 2020 | | CARDIOLOGY [place] | [address] | | | | | [address] | [address] | | | | | [address] | [place] [address] | | | | | [place] | [phone] | | | | | [address] | | | | | | [phone] | | | +--------+ + + + [...] [address] | | | | | | [place] [address] | | | | | | [phone] | | | | | | | | +--------+ + + + + | 08/28/ | Office | Cardiology | Dora De La Torre | | | 2019 | Visit | | [address] | | | | | | [address] | | | | | | [place] [address] | | | | | | [phone] | | | | | | | | +--------+ + + + + documented as of this encounter Visit Diagnoses Not on filedocumented in this encounter"
--- OUTSIDE RECORDS SUMMARY | ~2020-05-21 | XMS | Encounter Summary ---
Demographics + + + | Address | [address] [facility] | | | [place] [address] | + + + | Home Phone [...] [place], [place] | | | | | [address] | | + + + + + Care Team Providers + +------+ + | Care Delivery Table Feeder Name | Role | Phone | [...] | | | | 1993 | | [place] [address] | | | | | | [phone] | | | +--------+ + + + [...] [address] | | | | | | [place] [address] | | | | | | [phone] | | | | | | | | +--------+ + + + + | 08/28/ | Office | Cardiology | Dora De La Torre | | | 2019 | Visit | | [address] | | | | | | [address] | | | | | | [place] [address] | | | | | | [phone] | | | | | | | | +--------+ + + + + documented as of this encounter Visit Diagnoses Not on filedocumented in this encounter"
--- OUTSIDE RECORDS SUMMARY | ~2020-05-21 | XMS | Encounter Summary ---
Demographics + + + | Address | [address] [facility] | | | [place] [address] | + + + | Home Phone [...] [place], [place] | | | | | [address] | | + + + + + Care Team Providers + +------+ + | Care Marketing Program Manager Name | Role | Phone | + +------+ + PCP | Unavailable | + +------+ + Encounter Details +--------+ + + + + | Date | Type | Department | Care Team | Description | +--------+ + + + + | 01/25/ | Hospital | [facility] | | | | 2002 | Encounter | MED CTR XRAY [address] | | | | | | [address] | | | | | | [place] [address] | | | | | | [phone] | | | +--------+ + + + [...] | 05/29/ | Procedure | Cardiology | [facility] | | | 2019 | visit | | [address] | | | | | | [address] | | | | | | [place] [address] | | | | | | [phone] | | | | | | | | +--------+ + + + + | 08/28/ | Office | Cardiology | Dora De La Torre | | | 2019 | Visit | | [address] | | | | | | [address] | | | | | | [place] [address] | | | | | | [phone] | | | | | | | | +--------+ + + + + documented as of this encounter Visit Diagnoses Not on filedocumented in this encounter"
--- OUTSIDE RECORDS SUMMARY | ~2020-05-21 | XMS | Encounter Summary ---
Demographics + + + | Address | [address] [facility] | | | [place] [address] | + + + | Home Phone [...] [place] | | | | | [address] | | + + + + + Care Team Providers + +------+ + | Care Rest Room Matron Name | Role | Phone | + [...] + + | 03/07/ | Telephone | [facility] | Katharine Cardona PA-C | Results | | 2014 | | MEDICINE [place] | [address] [facility] | | | | | [address] | [place] [address] | | | | | [place], [place] | [phone] | | | | | [address] | | | | | | [phone] | | | +--------+ + + + [...] Miscellaneous Notes Telephone Encounter - Adrianne Horton, Certified Industrial Hygienist - 03/11/2015 3:41 PM PDTCalled Pat and delivered her results. Patient verbalized good understanding. elephone Encounter - Adrianne Horton , Certified Industrial Hygienist - 03/11/2015 8:40 AM PDTCall placed to [...] [address] | | | | | | [place] [address] | | | | | | [phone] | | | | | | | | +--------+ + + + + | 08/28/ | Office | Cardiology | Dora De La Torre | | | 2019 | Visit | | [address] | | | | | | [address] | | | | | | [place] [address] | | | | | | [phone] | | | | | | | | +--------+ + + + + documented as of this encounter Visit Diagnoses Not on filedocumented in this encounter"
--- OUTSIDE RECORDS SUMMARY | ~2020-05-21 | XMS | Encounter Summary ---
Demographics + + + | Address | [address] [facility] | | | [place] [address] | + + + | Home Phone [...] [place] | | | | | [address] | | + + + + + Care Team Providers + +------+ + | Care Golf Cart Attendant Name | Role | Phone | [...] address | | | | | [address] [place] | | | | | | [place] [address] | | | | | | [phone] | | | +--------+ + + + [...] - 03/03/2015 10:54 AM PDT----- Message from aBudilio trammell MD sent at 02/28/2015 12:44 PDT ----- Please call Ms. Arndt and let her know that the stroke work up she had done at [facility] was quite thorough and she did not [...] [address] | | | | | | [place] [address] | | | | | | [phone] | | | | | | | | +--------+ + + + + | 08/28/ | Office | Cardiology | Dora De La Torre | | | 2019 | Visit | | [address] | | | | | | [address] | | | | | | [place] [address] | | | | | | [phone] | | | | | | | | +--------+ + + + + documented as of this encounter Visit Diagnoses Not on filedocumented in this encounter"
--- OUTSIDE RECORDS SUMMARY | ~2020-05-21 | XMS | Encounter Summary ---
Demographics + + + | Address | [address] [facility] | | | [place] [address] | + + + | Home Phone [...] [place], [place] | | | | | [address] | | + + + + + Care Team Providers + +------+ + | Care Educational Manager Name | Role | Phone | + +------+ + PCP | Unavailable | + +------+ + Encounter Details +--------+ + + + + | Date | Type | Department | Care Team | Description | +--------+ + + + + | 04/01/ | Hospital | [facility] | | | | 1998 | Encounter | MED [facility] XRAY [address] | | | | | | [place] | | | | | | [place] [address] | | | | | | [phone] | | | +--------+ + + + [...] | | | | | [place] [address] | | | | | | [phone] | | | | | | | | +--------+ + + + + | 08/28/ | Office | Cardiology | [facility] | | | 2019 | Visit | | [address] | | | | | | [address] | | | | | | [place] [address] | | | | | | [phone] | | | | | | | | +--------+ + + + + documented as of this encounter Visit Diagnoses Not on filedocumented in this encounter"
--- OUTSIDE RECORDS SUMMARY | ~2020-05-21 | XMS | Encounter Summary ---
Demographics + + + | Address | [address] [facility] [address] | | | [place] [address] | + + + | Home Phone [...] [place], [place] | | | | | [address] | | + + + + + Care Team Providers + +------+ + | Care Acting Professor Name | Role | Phone | + +------+ + PCP | Unavailable | + +------+ + Encounter Details +--------+ + + + + | Date | Type | Department | Care Team | Description | +--------+ + + + + | 06/17/ | Hospital | [facility] | | | | 1991 - | Encounter | MED CTR GENERIC PSY | | | | | | CONV DEPT [address] | | | | 06/18/ | | [address] [place], | | | | 1991 | | [place] [address] | | | | | | [phone] | | | +--------+ + + + [...] [address] | | | | | | [place] [address] | | | | | | [phone] | | | | | | | | +--------+ + + + + | 08/28/ | Office | Cardiology | Dora De La Torre | | | 2019 | Visit | | [address] | | | | | | [address] | | | | | | [place] [address] | | | | | | [phone] | | | | | | | | +--------+ + + + + documented as of this encounter Visit Diagnoses Not on filedocumented in this encounter"
--- OUTSIDE RECORDS SUMMARY | ~2020-05-21 | XMS | Encounter Summary ---
Demographics + + + | Address | [address] [facility] | | | [place] [address] | + + + | Home Phone [...] [place] | | | | | [address] | | + + + + + Care Team Providers + +------+ + | Care Land Surveying Party Chief Name | Role | Phone | + +------+ + | Hari Samson DO | PCP | | + +------+ + Encounter Details +--------+ + + + + | Date | Type | Department | Care Team | Description | +--------+ + + + + | 06/12/ | Hospital | [facility] | Frandy Teresa, | No Show | | 2014 | Encounter | MED CTR | DO [address] | | | | | ELECTRODIAGNOSTICS | [address] [place], [place] | | | | | [address] [place] | [address] | | | | | [place] [address] | | | | | | [phone] | | | +--------+ + + + [...] | | | | | [place] [address] | | | | | | [phone] | | | | | | | | +--------+ + + + + | 08/28/ | Office | Cardiology | Dora De La Torre | | | 2020 | Visit | | [address] | | | | | | [address] | | | | | | [place] [address] | | | | | | [phone] | | | | | | | | +--------+ + + + + documented as of this encounter Visit Diagnoses Not on filedocumented in this encounter"
--- OUTSIDE RECORDS SUMMARY | ~2020-05-21 | XMS | Encounter Summary ---
Demographics + + + | Address | [address] [facility] | | | [place] [address] | + + + | Home Phone [...] [place] | | | | | [address] | | + + + + + Care Team Providers + +------+ + | Care Social Media Developer Name | Role | Phone | [...] [address] | [address] [place], [place] | | | | | [place], [place] | [address] | | | | | [address] | | | | | | [phone] | | | +--------+ + + + [...] | | | | | [place] [address] | | | | | | [phone] | | | | | | | | +--------+ + + + + | 08/28/ | Office | Cardiology | Dora De La Torre | | | 2020 | Visit | | [address] | | | | | | [address] | | | | | | [place] [address] | | | | | | [phone] | | | | | | | [...] + | MISCELLANEOUS LAB | | | [phone] | + +---------+ + + | MISCELANIOUS LAB | | | [phone] | + +---------+ + + documented in this encounter Visit Diagnoses + + | Diagnosis | + + | Back pain - Primary Backache, unspecified | + + documented in this encounter"
--- OUTSIDE RECORDS SUMMARY | ~2020-05-21 | XMS | Encounter Summary ---
Demographics + + + | Address | [address] [facility] | | | [place] [address] | + + + | Home Phone [...] [place] | | | | | [address] | | + + + + + Care Team Providers + +------+ + | Care Tiler'S Assistant Name | Role | Phone | [...] + + | 09/10/ | Documentati | [facility] | Katharine Moncada, | Other (urgent | | 2019 | on | CARDIOLOGY [place] | Technologist | report) | | | | [address] | | | | | | [place] | | | | | | [address] | | | | | | [phone] | | | +--------+ + + + [...] | | | | | [place] [address] | | | | | | [phone] | | | | | | | | +--------+ + + + + | 08/28/ | Office | Cardiology | Dora De La Torre | | | 2020 | Visit | | [address] | | | | | | [address] | | | | | | [place] [address] | | | | | | [phone] | | | | | | | | +--------+ + + + + documented as of this encounter Visit Diagnoses Not on filedocumented in this encounter"
--- OUTSIDE RECORDS SUMMARY | ~2020-05-21 | XMS | Encounter Summary ---
Demographics + + + | Address | [address] [facility] [address] | | | [place] [address] | + + + | Home Phone [...] [place], [place] | | | | | [address] | | + + + + + Care Team Providers + +------+ + | Care Assembler Ping Pong Table Name | Role | Phone | + +------+ + PCP | Unavailable | + +------+ + Encounter Details +--------+ + + + + | Date | Type | Department | Care Team | Description | +--------+ + + + + | 02/22/ | Hospital | [facility] | | | | 1996 | Encounter | MED CTR EMERGENCY | | | | | | [address] | | | | | | [place] | | | | | | [address] | | | | | | [phone] | | | +--------+ + + + [...] | | | | | [place] [address] | | | | | | [phone] | | | | | | | | +--------+ + + + + | 08/28/ | Office | Cardiology | Dora De La Torre | | | 2020 | Visit | | [address] | | | | | | [address] | | | | | | [place] [address] | | | | | | [phone] | | | | | | | | +--------+ + + + + documented as of this encounter Visit Diagnoses Not on filedocumented in this encounter"
--- OUTSIDE RECORDS SUMMARY | ~2020-05-21 | XMS | Encounter Summary ---
Demographics + + + | Address | [address] [facility] | | | [place] [address] | + + + | Home Phone [...] [place] | | | | | [address] | | + + + + + Care Team Providers + +------+ + | Care Chief Building Inspector Name | Role | Phone | + +------+ + | Adriano Patrick MD | PCP | | + +------+ + Encounter Details +--------+ + + + + | Date | Type | Department | Care Team | Description | +--------+ + + + + | 06/10/ | Abstract | [facility] INTERNAL | Thierry Fry | | | 2014 | | MEDICINE [facility] RICH | MD Lisa [address] | | | [address] [place], | [place] [place], [place] | | | | | [place] [address] | [address] | | | | | [phone] | | | +--------+ + + + [...] | | | | | [place] [address] | | | | | | [phone] | | | | | | | | +--------+ + + + + | 08/28/ | Office | Cardiology | Dora De La Torre | | | 2019 | Visit | | [address] | | | | | | [address] | | | | | | [place] [address] | | | | | | [phone] | | | | | | | [...]
--- OUTSIDE RECORDS SUMMARY | ~2020-05-21 | XMS | Encounter Summary ---
Demographics + + + | Address | [address] [facility] | | | [place] [address] | + + + | Home Phone [...] [place] | | | | | [address] | | + + + + + Care Team Providers + +------+ + | Care Community Fundraiser Name | Role | Phone | [...] [address] | | | | | | [place], [place] | | | | | | [address] | | | +--------+ + + + [...]
--- OUTSIDE RECORDS SUMMARY | ~2020-05-21 | XMS | Encounter Summary ---
Demographics + + + | Address | [address] [facility] | | | [place] [address] | + + + | Home Phone [...] [place] | | | | | [address] | | + + + + + Care Team Providers + +------+ + | Care Granite Chip Terrazzo Finisher Name | Role | Phone | [...] | | | | | mellitus, | [address] | [place] | | | | | controlled | Phone: | [address] | | | | | (HCC) | [phone] | Phone: | | | | | History of | Fax: | [phone] | | | | | gastric | [phone] | Fax: | | | | | restrictive | | [phone] | | | | | surgery | [...] | | | y Type 2 | [address] | [place] | | | | | diabetes | Phone: | [address] | | | | | mellitus, | [phone] | Phone: | | | | | controlled | Fax: | [phone] | | | | | (HCC) | [phone] | Fax: | | | | | Obesity, | | [phone] | | | | | Class III, [...] | | FORTUNATO & Katharine BUCIO in [place]. | + + + | Other | [...] + | 03/06/ | Office | [facility] INTER[facility] | Katharine Cardona PA-C | Hypothyroidism due | | 2014 | Visit | MEDICINE [address] | to acquired atrophy | | | | [address] [place], | [place] [address] | of thyroid (Primary | | | | [place] [address] | [phone] | Dx); Essential | | | | [phone] | | hypertension; Iron | | | [...] | | | | | | ([facility]); Environmental | | | [...] | | | | | obesity) ([facility]); | | | | | | Type 2 diabetes | | | | | | mellitus, controlled | | | | | | ([facility]); Preventative | | | [...] t be different from the original. Ask [facility] if they think it might be helpful [...] Cont your meds as prescribed. F/U with [facility] as scheduled Neuropathy Continue gabapentin. May consider increase if pain is not controlled. May benefit from switching from Paxil to one of the SNRIs or TCAs for analgesic effects, ho manju, she is doing so well on her current regimen it may not be worth making any changes an d find alternate ways to deal with the pain. Would be worth discussing with [facility] Psych Back Pain Will refer to water therapy (aqua fitness) at [facility] as request ed. ROGERS on [...] procedures 4. Schizoaffective disorder, bipolar type ([facility]) 5. Neuropathy Vitamin B-12 6. BACK PAIN, LUMBAR, WITH RADICULOPATHY Ambulatory referral to Physical Therapy 7. ROGERS on CPAP 8. Stroke ([facility]) 9. Environmental and seasonal allergies fluticasone (FLONASE) 50 mcg/nasal spray 10. Gastroesophageal reflux disease without esophagitis dexlansoprazole (DEXILANT) 60 mg D R capsule 11. History of gastric restrictive surgery Vitamin D, 25-Hydroxy Nutrition Services - External - AMB Referral 12. Obesity, Class III, BMI 40-49.9 (morbid obesity) ([facility]) Ambulatory referral to Physical Therapy Nutrition Services - External - AMB Referral 13. Type 2 diabetes mellitus, controlled ([facility]) Ambulatory referral to Physical [...] Cont your meds as prescribed. F/U with [facility] as scheduled Neuropathy Continue gabapentin. May consider [...] the pain. Would be worth discussing with [facility] professional. Back Pain Will refer to water therapy (aqua fitness) at [facility] as request [...] plan. The above note was dictated using muzu tv voice recognition software. It may have not been proofread in entirety. Minor errors in grammar may occur. CHIEF COMPLAINT Chief Complaint Patient presents with Establish Care Presents to establish care. Former patient of [facility] Katharine BUC[facility] in [place]. Other Possible stroke January 2015. Is now seeing Dr. Newman, changed to Plavix 02-27-15 from [facility]. Diabetes NIDDM. Checks blood sugars almost daily, [...] auditory, at 36. 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 She is now very well controlled on Saphris, Depakote, and Paxi l. She is followed by [facility] in [place]. She has DM2 that is well controlled [...] Laterality: N/A; Surgeon: Frandy castellanos DO; Location: [facility] MAIN OR SOCIAL HISTORY History Social [...] mg by mouth Daily. Cholecalciferol (VITAMIN D-3) 89936 units CAPS Oral Take 50,000 Units by [...] Oral Take 10 mg by mouth nightly. Milton-3 Fatty Acids (FISH OIL CONCENTRATE) 1000 MG [...] [address] | | | | | | [place] [address] | | | | | | [phone] | | | | | | | | +--------+ + + + + | 08/28/ | Office | Cardiology | Dora De La Torre | | | 2019 | Visit | | [address] | | | | | | [address] | | | | | | [place] [address] | | | | | | [phone] | | | | | | | [...] | | | | | controlled ([facility]) | | | | | | Obesity, Class III, | | | | | | BMI 40-49.9 (morbid | | | | | | obesity) ([facility]) | | + + [...] | | | | | obesity) ([facility]) | | + + [...] non- | FILTRATION | mL/min/1.73m2 | [facility] | | | [place] | RATE,ESTIMATED | | MEDICAL | | | | mL/min/1.96y2Rbjl than | | CENTER - | | [...] [address] | [place] | [phone] | | [facility] | | [address] | | | - LABORATORY | | [...]
--- OUTSIDE RECORDS SUMMARY | ~2020-05-21 | XMS | Encounter Summary ---
Demographics + + + | Address | [address] [facility] | | | [place] [address] | + + + | Home Phone [...] [place] | | | | | [address] | | + + + + + Care Team Providers + +------+ + | Care Technical Applications Scientist Name | Role | Phone | [...] + + | 08/21/ | Documentati | [facility] | Katharine Moncada, | Other (urgent | | 2019 | on | CARDIOLOGY [place] | Technologist | report) | | | | [address] | | | | | | [place] | | | | | | [address] | | | | | | [phone] | | | +--------+ + + + [...] | | | | | [place] [address] | | | | | | [phone] | | | | | | | | +--------+ + + + + | 08/28/ | Office | Cardiology | Dora De La Torre | | | 2020 | Visit | | [address] | | | | | | [address] | | | | | | [place] [address] | | | | | | [phone] | | | | | | | | +--------+ + + + + documented as of this encounter Visit Diagnoses Not on filedocumented in this encounter"
--- OUTSIDE RECORDS SUMMARY | ~2020-05-21 | XMS | Encounter Summary ---
Demographics + + + | Address | [address] [facility] [address] | | | [place] [address] | + + + | Home Phone [...] [place], [place] | | | | | [address] | | + + + + + Care Team Providers + +------+ + | Care Crane Manager Name | Role | Phone | + +------+ + PCP | Unavailable | + +------+ + Encounter Details +--------+ + + + + | Date | Type | Department | Care Team | Description | +--------+ + + + + | 12/27/ | Hospital | [facility] | | | | 1997 - | Encounter | MED CTR GENERIC PSY | | | | | | CONV DEPT [address] | | | | 01/01/ | | [address], | | | | 1997 | | [place] [address] | | | | | | [phone] | | | +--------+ + + + [...] [address] | | | | | | [place] [address] | | | | | | [phone] | | | | | | | | +--------+ + + + + | 08/28/ | Office | Cardiology | Dora De La Torre | | | 2019 | Visit | | [address] | | | | | | [address] | | | | | | [place] [address] | | | | | | [phone] | | | | | | | | +--------+ + + + + documented as of this encounter Visit Diagnoses Not on filedocumented in this encounter"
--- OUTSIDE RECORDS SUMMARY | ~2020-05-21 | XMS | Encounter Summary ---
Demographics + + + | Address | [address] [facility] | | | [place] [address] | + + + | Home Phone [...] [place] | | | | | [address] | | + + + + + Care Team Providers + +------+ + | Care Specialist Physicians Name | Role | Phone | + [...] + + | 10/25/ | Telephone | [facility] | Ashley Chávez | Other (Patient to | | 2019 | | CARDIOLOGY [place]ad, Hand Weaver | stay on the same | | | | [address] | | dose. ) | | | | [place] | | | | | | [address] | | | | | | [phone] | | | +--------+ + + + [...] Miscellaneous Notes Telephone Encounter - Ashley Chávez Hand Weaver - 10/25/2019 8:44 AM PSTCall m cierra [...] CLAYTONW:[email or web address] el ephone Encounter - Ashley Chávez Hand Weaver - 10/25/2019 8:40 AM PST----- Mess age from Desiree Peterson DO sent at 10/24/2019 8:42 PM PST ----- Regarding: RE: Patient's Metoprolol. We can stay on the same dose of metoprolol for now. Thanks ----- Message ----- From: Ashley Chávez Hand Weaver Sent: 10/23/2019 10:52 AM PST To: Desiree [...] | | | | | [place] [address] | | | | | | [phone] | | | | | | | | +--------+ + + + + | 08/28/ | Office | Cardiology | Dora De La Torre | | | 2020 | Visit | | [address] | | | | | | [address] | | | | | | [place] [address] | | | | | | [phone] | | | | | | | | +--------+ + + + + documented as of this encounter Visit Diagnoses Not on filedocumented in this encounter"
--- OUTSIDE RECORDS SUMMARY | ~2020-05-21 | XMS | Clinical Summary ---
Demographics + + + | Address | [address] [facility] [address] | | | [place] [address] | + + + | Home Phone [...] [place] | | | | | [address] | | + + + + + Care Team Providers + +------+ + | Care Global Account Director Name | Role | Phone | + +------+ + PCP | Unavailable | + +------+ + Source Comments EDWARD is fully live on both [facility] Ambulatory and [facility] InPatient.[facility] Allergies Not on [...] | [facility] | xxxxxxxxxx | 02/22/20 | [phone] | [address] | Medica | | | RE A & | | 15-Pre | 1 | [address] | re | | | B | | sent | | [place] | | | | | | | | [address] | | + +--------+ +--------+ + +--------+ [...] Self | [birth year] | | [address] | | | al/Fam | | 1955 | [phone] | [address] [place] | | | [place]onte | | | 5 (Home) | [address] | + +--------+ +--------+ + +"
--- OUTSIDE RECORDS SUMMARY | ~2020-05-21 | XMS | Encounter Summary ---
Demographics + + + | Address | [address] [facility] | | | [place] [address] | + + + | Home Phone [...] [place], [place] | | | | | [address] | | + + + + + Care Team Providers + +------+ + | Care Restorative Care Technician Name | Role | Phone [...] | | | 1991 | | [place] [address] | | | | | | [phone] | | | +--------+ + + + [...] [address] | | | | | | [place] [address] | | | | | | [phone] | | | | | | | | +--------+ + + + + | 08/28/ | Office | Cardiology | Dora De La Torre | | | 2019 | Visit | | [address] | | | | | | [address] | | | | | | [place] [address] | | | | | | [phone] | | | | | | | | +--------+ + + + + documented as of this encounter Visit Diagnoses Not on filedocumented in this encounter"
--- OUTSIDE RECORDS SUMMARY | ~2020-05-21 | XMS | Encounter Summary ---
Demographics + + + | Address | [address] [facility] | | | [place] [address] | + + + | Home Phone [...] [place] | | | | | [address] | | + + + + + Care Team Providers + +------+ + | Care Consumer Electronics Merchandiser Name | Role | Phone | [...] [address] | | | | | [address] [place], [place] | [place], [place] | | | | | [address] | [address] | | | | | [phone] | | | +--------+ + + + [...] | | | | | [place] [address] | | | | | | [phone] | | | | | | | | +--------+ + + + + | 08/28/ | Office | Cardiology | Dora De La Torre | | | 2019 | Visit | | [address] | | | | | | [address] | | | | | | [place] [address] | | | | | | [phone] | | | | | | | | +--------+ + + + + documented as of this encounter Visit Diagnoses Not on filedocumented in this encounter"
--- OUTSIDE RECORDS SUMMARY | ~2020-05-21 | XMS | Encounter Summary ---
Demographics + + + | Address | [address] [facility] | | | [place] [address] | + + + | Home Phone [...] [place], [place] | | | | | [address] | | + + + + + Care Team Providers + +------+ + | Care Screedman Name | Role | Phone | + +------+ + PCP | Unavailable | + +------+ + Encounter Details +--------+ + + + + | Date | Type | Department | Care Team | Description | +--------+ + + + + | 10/29/ | Hospital | [facility] | | | | 1994 | Encounter | MED CTR LABORATORY | | | | | | [address] | | | | | | [place] | | | | | | [address] | | | | | | [phone] | | | +--------+ + + + [...] | | | | | [place] [address] | | | | | | [phone] | | | | | | | | +--------+ + + + + | 08/28/ | Office | Cardiology | Dora De La Torre | | | 2020 | Visit | | [address] | | | | | | [address] | | | | | | [place] [address] | | | | | | [phone] | | | | | | | | +--------+ + + + + documented as of this encounter Visit Diagnoses Not on filedocumented in this encounter"
--- OUTSIDE RECORDS SUMMARY | ~2020-05-21 | XMS | Encounter Summary ---
Demographics + + + | Address | [address] [facility] | | | [place] [address] | + + + | Home Phone [...] [place] | | | | | [address] | | + + + + + Care Team Providers + +------+ + | Care Meat Packager Name | Role | Phone | [...] + + | 11/25/ | Telephone | [facility] | Frandy Teresa, | Medication Refill | | 2014 | | NEUROSURGERY [address] | DO [address] | Assistance | | | | [facility] | [address] [place], [place] | | | | | [place], [place] | [id number] | | | | | [address] | | | | | | [phone] | | | +--------+ + + + [...] get a refill of her pain medication Solway 10-325 mg. I l et her know we are beyond the 90 days after her surgery and refills need to come from her [facility] provider. She requests us to update [...] [address] | | | | | | [place] [address] | | | | | | [phone] | | | | | | | | +--------+ + + + + | 08/28/ | Office | Cardiology | Dora De La Torre | | | 2019 | Visit | | [address] | | | | | | [address] | | | | | | [place] [address] | | | | | | [phone] | | | | | | | | +--------+ + + + + documented as of this encounter Visit Diagnoses Not on filedocumented in this encounter"
--- OUTSIDE RECORDS SUMMARY | ~2020-05-21 | XMS | Encounter Summary ---
Demographics + + + | Address | [address] [facility] | | | [place] [address] | + + + | Home Phone [...] [place] | | | | | [address] | | + + + + + Care Team Providers + +------+ + | Care Supervisor Scouring Pads Name | Role | Phone | + [...] | | | | hesis | | [place], | | | | | Spinal | | [place] [address] | | | | | stenosis, | | Phone: | | | | | lumbar | | [phone] | | | | | region, | | Fax: | | | | | without | | [phone] | | | | | neurogenic | [...] | | [address] [place] | | | | | [place] | [phone] | | | | | [address] | | | | | | [phone] | | | +--------+ + + + [...] Easy mask AW. DL times one with [facility] 3 easy view [...] +----+---+ + + | | 1 | North | | | | 2 | 43-degrees | | | | 3 | | | | | 1 | | | +----+---+ + + | | 1 | North off | | | | 4 | [...] EVALUATION Cindy Arndt 58 y.o. female 1955 [id number] Procedure: Procedure(s):MIS L5-S1 TRANSFORAMINAL LUMBAR INTERBODY FUSION [...] by Zen Mccord MD 07/02/2014 14:55 [facility] nesthesia Preproc edure Evaluation - Zen Mccord MD - 07/02/2014 8:36 AM PDTFormatting of this note m ight be different from the original. ANESTHESIA PREANESTHESIA EVALUATION Cindy Arndt 58 y.o. female 1955 [id number] Scheduled procedure LAMINECTOMY PLIF/TLIF INSTRUMENTATION [184] - MIS L5-S1 TRANSFORAMINAL LUMBAR INTERBODY FUSION Medical history, anesthesia, medications, allergy histories reviewed. ECG reviewed. Labs reviewed. ROS / Med History Ane (+) PONV. NPO status verified. CV (+) hypertension.(-) CAD, past OR, CHF, congenital heart disease, pulmonary hypertension, p [...] | | | | [place] [address] | | | | | | [phone] | | | | | | | | +--------+ + + + + | 08/28/ | Office | Cardiology | Dora De La Torre | | | 2019 | Visit | | [address] | | | | | | [address] | | | | | | [place] [address] | | | | | | [phone] | | | | | | | [...]
--- OUTSIDE RECORDS SUMMARY | ~2020-05-21 | XMS | Encounter Summary ---
Demographics + + + | Address | [address] | | | [place] [address] | + + + | Home Phone [...] [place], [place] | | | | | [address] | | + + + + + Care Team Providers + +------+ + | Care Director Hospice Operations Name | Role | Phone | + +------+ + PCP | Unavailable | + +------+ + Encounter Details +--------+ + + + + | Date | Type | Department | Care Team | Description | +--------+ + + + + | 12/09/ | Hospital | [facility] | Serafin Bautista | | | 2011 | Encounter | MED CTR XRAY [address] | | | | | [place] | [address] [place] | | | | | [place] [address] | [address] | | | | | [phone] | | | +--------+ + + + [...] | | | | | [place] [address] | | | | | | [phone] | | | | | | | | +--------+ + + + + | 08/28/ | Office | Cardiology | Dora De La Torre | | | 2019 | Visit | | [address] | | | | | | [address] | | | | | | [place] [address] | | | | | | [phone] | | | | | | | [...] | [facility] Diagnostic Imaging Department | [facility] | | [address] | [facility] | | PROCEDURE NOTE EPIDURAL | [...] Juan, Rad Conversion - 11/30/2013 4:45 PM [facility] | | Diagnostic Imaging Department | | [address] | | | | | | [...]
--- OUTSIDE RECORDS SUMMARY | 2020-05-21 04:16 | XMS ---
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 Security Customer Response Representative Events No recent Security Events currently on file CRITERIA MET - 6 ED Visits in 6 Months - [facility] - Has Care Guidelines - PDMP - [facility] - 2 Visits in 30 Days CARE PROVIDERS WAYNE CAMARGO Internal Medicine 09/07/2019-Current PHONE: [phone] Kenny Palafox DO [facility] Current PHONE: [phone] Jose Ag Family Medicine 01/31/2019-Current PHONE: [phone] Guidelines Source: [facility] Guidelines Date: 03/13/2019 Care Coordination: Mental health services are being provided by [employer].\T\nbsp; Please contact [employer] with mental health concerns.\T\nbsp; [facility] [place]: [phone]\T\nbsp; Moshe: [phone]. Care History Medical/Surgical 04/29/2020 [facility] Patient requested new PCP, not happy with Dr. Camargo.\T\nbsp; Patient aware [facility] 04/30/2020. 04/22/2020 [facility] Patient had follow up scheduled for 04/25/[address] Camargo,but was canceled by doctor.\T\nbsp; Left voice mail for patient to reschedule follow up visit. 10/23/2019 [facility] - CHW CONTACTED JONATHAN AT [facility]- PATIENT DOES NOT MEET THE ACT TEAM REQUIREMENTS FOR SERVICES DUE TO DX. - CHW SUGGESTED TO HAVE GUARDIANSHIP REVIEWED FOR PATIENT DUE TO ONGOING MENTAL HEALTH CONCERNS AND ED VISITS. - JONATHAN STATED SHE WOULD LOOK INTO THIS WITH PATIENT CURRENT CASE MANAGEMENT TEAM. - JONATHAN CAN BE CONTACTED AT [phone]. E.D. VISIT COUNT (12 MO.) 21 [facility]. TOTAL 21 NOTE: Visits indicate total known visits. ED/UCC VISIT TRACKING (12 MO.) 05/21/2020 04:15 [facility] [place] TYPE: Emergency COMPLAINT: - LIGHT HEADED 05/13/2020 19:47 [facility] [place] TYPE: Emergency COMPLAINT: - MEDICAL CLEARANCE DIAGNOSES: - Allergy status to other drugs, medicaments and biological sub - 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 technician (current) drug therapy - 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 teacher (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 of 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 - Encounter for other general examination - Essential (primary) hypertension - Gastro-esophageal reflux disease without esophagitis - group home (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 - Allergy status to sulfonamides status - Old myocardial infarction - Type 2 diabetes mellitus without complications 05/06/2020 06:05 [facility] [place] TYPE: Emergency COMPLAINT: - RAPID HEARTRATE DIAGNOSES: - Gastro-esophageal reflux disease without esophagitis - group home (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 of 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 - Allergy status to sulfonamides status - Essential (primary) hypertension - Allergy status to other drugs, medicaments and biological sub - Type 2 diabetes mellitus without complications - group home (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 - Palpitations - Old myocardial infarction - 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 technician (current) drug therapy 05/03/2020 19:00 [facility] [place] TYPE: Emergency COMPLAINT: - RAPID HEART RATE DIAGNOSES: - Allergy status to other drugs, medicaments and biological sub - Allergy status to sulfonamides status - Old myocardial infarction - Gastro-esophageal reflux disease without esophagitis - Essential (primary) hypertension - 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 [facility] [place] TYPE: Emergency COMPLAINT: - MEDICAL CLEARANCE DIAGNOSES: - Gastro-esophageal reflux disease without esophagitis - Allergy status to other drugs, medicaments and biological sub - Essential (primary) hypertension - Allergy status to sulfonamides status - Type 2 diabetes mellitus without complications - 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 technician (current) drug therapy - Hallucinations, unspecified - [...] Allergy status to sulfonamides status - Other skilled nursing (current) drug therapy - Abrasion, left knee, [...] Gastro-esophageal reflux disease without esophagitis - Other skilled nursing (current) drug therapy - Delusional disorders 10/22/2019 16:37 [facility] [place] TYPE: Emergency COMPLAINT: - MEDICAL CLEARANCE DIAGNOSES: - Type 2 diabetes mellitus without complications - Gastro-esophageal reflux disease without esophagitis - Old myocardial infarction - Other skilled nursing (current) drug therapy - Essential (primary) hypertension - Allergy status to sulfonamides status - Allergy status to other drugs, medicaments and biological sub - Encounter for other general examination 10/20/2019 20:02 [facility] [place] TYPE: Emergency COMPLAINT: - MEDICAL CLEARANCE DIAGNOSES: - Gastro-esophageal reflux disease without esophagitis - Type 2 diabetes mellitus without complications - Encounter for other general examination - Other skilled nursing (current) drug therapy - Old myocardial infarction [...] ischemic attack (TIA), and cere - Other skilled nursing (current) drug therapy - Old myocardial infarction - Essential (primary) hypertension - Type 2 diabetes mellitus with hyperglycemia 10/11/2019 10:06 [facility] [place] TYPE: Emergency COMPLAINT: - MEDICAL CLEARANCE DIAGNOSES: - Essential (primary) hypertension - Delusional disorders - Old myocardial infarction - Delusional disorders - Allergy status to sulfonamides status - 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 technician (current) drug therapy - Schizoaffective disorder, unspecified 09/28/2019 13:19 [facility] [place] TYPE: Emergency COMPLAINT: - MEDICAL CLEARANCE DIAGNOSES: - Type 2 diabetes mellitus without complications - Allergy status to other drugs, medicaments and biological sub - Old myocardial infarction - 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 technician (current) drug therapy - Allergy status to sulfonamides status - Gastro-esophageal reflux disease without esophagitis - Essential (primary) hypertension - Suicidal ideations - Encounter for other administrative examinations 09/26/2019 10:06 [facility] [place] TYPE: Emergency COMPLAINT: - MEDICAL CLEARANCE DIAGNOSES: - 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 technician (current) drug therapy - Personal history of transient ischemic attack (TIA), and cere - Gastro-esophageal reflux disease without esophagitis - Allergy status to sulfonamides status - Old myocardial infarction - Schizoaffective disorder, unspecified - Allergy status to other drugs, medicaments and biological sub - Essential (primary) hypertension - group home (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 09/25/2019 13:35 [facility] [place] TYPE: Emergency COMPLAINT: - HEARING VOICES DIAGNOSES: - Type 2 diabetes mellitus without complications - Personal history of transient ischemic attack (TIA), and cere - Gastro-esophageal reflux disease without esophagitis - Schizoaffective disorder, unspecified - Suicidal ideations - group home (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 - Old myocardial infarction - Allergy status to sulfonamides status - Essential (primary) hypertension - 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 technician (current) drug therapy - Allergy status to [...] status to sulfonamides status - 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 technician (current) drug therapy 09/18/2019 10:33 [facility] [place] TYPE: Emergency COMPLAINT: - SUICIDAL THOUGHTS, HEARING VOICES DIAGNOSES: - Disorder of urea cycle metabolism, unspecified - Other skilled nursing (current) drug therapy - Schizoaffective disorder, unspecified - Essential (primary) hypertension - Type 2 diabetes mellitus without complications - Gastro-esophageal reflux disease without esophagitis - Old myocardial infarction - Allergy status to sulfonamides status - Allergy status to other drugs, medicaments and biological sub - 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 09/06/2019 11:40 [facility] [place] TYPE: Emergency COMPLAINT: - MEDICAL CLEARANCE DIAGNOSES: - Old myocardial infarction - Essential (primary) hypertension - Allergy status to sulfonamides status - Auditory hallucinations - Other skilled nursing (current) drug therapy - Allergy status to other drugs, medicaments and biological sub - Type 2 diabetes mellitus without complications - Gastro-esophageal reflux disease without esophagitis 08/15/2019 15:26 [facility] [place] TYPE: Emergency COMPLAINT: - DIZZINESS DIAGNOSES: - Schizoaffective disorder, unspecified - 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 technician (current) drug therapy - Type 2 diabetes [...] attack (TIA), and cere - 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 technician (current) drug therapy - Allergy status to narcotic agent status - Schizophrenia, unspecified - Allergy status to other drugs, medicaments and biological sub - Dizziness and giddiness - Allergy status to sulfonamides status Plus 1 More Visit INPATIENT VISIT [...] - Paroxysmal atrial fibrillation - 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 technician (current) drug therapy - Allergy status to sulfonamides status [email or web address]
[2020-05-21] MEDS ORDERED: GLUCOPHAGE500 MG PO (05:53)
--- NOTE | 2020-05-22 21:21 | EKG ---
[facility] [address] [place] [address] Signed Sinus rhythm with 1st degree AV block Left axis deviation Left bundle branch block Inferior infarct , age undetermined Anterolateral infarct , age undetermined Abnormal ECG When compared with ECG of 06-MAY-2020 06:12, Anterior infarct is now present Anterolateral infarct is now present Inferior infarct is now present Confirmed by RONALD DIAZ DO ([id number]) on 05/22/2020 9:21:31 PM Electronically Signed By: RONALD DIAZ DO 05/22/202120 PATIENT NAME: BERNARDA ALARCON Electrocardiogram DATE OF : 55 PHYSICIAN: RONALD DIAZ DO REPORT #: [id number] REPORT IS CONFIDENTIAL AND NOT TO BE RELEASED WITHOUT AUTHORIZATION
== END 2020-05-21 06:40 | disposition home or self-care (01) ==
LOC: ED 04:14
DX: E11.65 Type 2 diabetes mellitus with hyperglycemia (principal); I10 Essential (primary) hypertension; K21.9 Gastro-esophageal reflux disease without esophagitis; F20.9 Schizophrenia, unspecified; I25.2 Old myocardial infarction; Z88.2 Allergy status to sulfonamides; Z88.8 Allergy status to other drugs, medicaments and biological substances; Z79.899 Other long term (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; Z79.82 Long term (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; Z79.84 Long term (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 of 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
CPT/HCPCS: 71045; 80053; 83735; 83880; 84484; 85025; 85379; 93005; 93010; 99285-25

== ENCOUNTER 2020-05-22 11:21 | Emergency (ER) | payer MEDICARE ==
[~2020-05-22] VITALS: Ht 170.2 cm; Wt 90.7 kg
--- OUTSIDE RECORDS SUMMARY | ~2020-05-22 | XMS | Encounter Summary ---
Demographics + + + | Address | [address] | | | [place] [address] | + + + | Home Phone | | + + + | Preferred Language | Unknown | + + + | Marital Status | | + + + | Holiness Affiliation | [id number] | + + + | Race | Unknown | + + + | Ethnic Group | Unknown | + + + Author + + + | Author | [facility] | | | and [place] | + + + | Organization | [facility] | | | and [place] | + + + | Address | Unknown | + + + | Phone | Unavailable | + + + Support + + + + + | Name | Relationship | Address | Phone | + + + + + | Araceli Sibley | ECON | [place], [place] | | | | | [address] | | + + + + + Care Team Providers + +------+ + | Care Self Rising Flour Mixer Name | Role | Phone | + +------+ + PCP | Unavailable | + +------+ + Encounter Details +--------+ + + + + | Date | Type | Department | Care Team | Description | +--------+ + + + + | 03/11/ | [facility] | [facility] | Deon Gonzales | | | 2004 | Encounter | MED CTR SLEEP | MD [place] [address] | | | | | [place] [address] | [address] [facility] | | | | | [place], [place] | [place] [address] | | | | | [address] | [phone] | | | | | [phone] | | | +--------+ + + + [...] as of this encounter Plan of Treatment +--------+ + + + + | Date | Type | Specialty | Care Team | Description | +--------+ + + + + | 05/29/ | Procedure | Cardiology | Dora De La Torre | | | 2019 | visit | | [address] | | | | | | [address] | | | | | | [place] [address] | | | | | | [phone] | | | | | | | | +--------+ + + + + | 08/28/ | Office | Cardiology | Dora De La Trore | | | 2019 | Visit | | [address] | | | | | | [address] | | | | | | [place] [address] | | | | | | [phone] | | | | | | | | +--------+ + + + + documented as of this encounter Visit Diagnoses Not on filedocumented in this encounter"
--- OUTSIDE RECORDS SUMMARY | ~2020-05-22 | XMS | Encounter Summary ---
Demographics + + + | Address | [address] | | | [place] [address] | + + + | Home Phone | | + + + | Preferred Language | Unknown | + + + | Marital Status | | + + + | Church Affiliation | 1013 | + + + [...] [place] | | | | | [address] | | + + + + + Care Team Providers + +------+ + | Care Tool Checker Name | Role | Phone | + +------+ + | Natalee Andersen NP | PCP | | + +------+ + Reason for Visit + + + | Reason | Comments | + + + | New Patient | CVA | + + + Evaluate & Treat (Urgent) +--------+--------+ + + + + | Status | Reason | Specialty | Diagnoses / | Referred By | Referred To | | | | | Procedures | Contact | Contact | +--------+--------+ + + + + | Closed | | Neurology | Diagnoses | | Paty, | | | | | CVA | Avery, | Baudilio Abad MD | | | | | (cerebral | Davey A, | Need | | | | | infarction) | [address] | updated | | | | | | [address] | address | | | | | | [place], | | | | | | | [place] | | | | | | | [address] | | | | | | | Phone: | | | | | | | [phone] | | | | | | | Fax: | | | | | | | [phone] | | +--------+--------+ + + + + Encounter Details +--------+---------+ + + + | Date | Type | Department | Care Team | Description | +--------+---------+ + + + | 02/27/ | Office | [facility] | Baudilio Newman | Neuropathy (Primary | | 2015 | Visit | NEUROLOGY LAURIE | MD Pollo Need updated | Dx); Sleep apnea; | | | | [address], | address | Stroke (HCC); | | | | [address] [place] | | Thyroid disease | | | | [place] [address] | | | | | | [phone] | | | +--------+---------+ + + + [...] + + + | Blood Pressure | 120/65 | 02/27/2015 10:37 AM | | | | | PDT | | + + + + + | Pulse | 62 | 02/27/2015 10:37 AM | | | | | PDT | | + + + + + | Temperature | - | - | | + + + + + | Respiratory Rate | 18 | 02/27/2015 10:37 AM | | | | | PDT | | + + + + + | Oxygen Saturation | - | - | | + + + + + | Inhaled Oxygen | - | - | | | Concentration | | | | + + + + + | Weight | 133.4 kg (294 lb) | 02/27/2015 10:37 AM | | | | | PDT | | + + + + + | Height | 170.2 cm (5' 7") | 02/27/2015 10:37 AM | | | | | PDT | | + + + + + | Body Mass Index | 46.05 | 02/27/2015 10:37 AM | | | | | PDT | | + + + + + documented in this encounter Patient Instructions Patient Instructions Baudilio Newman MD - 02/27/2015 11:15 AM PDT1) Start taking plav ix 2) Stop aggrenox 3) Ask PCP about stopping aspirin, I would favor stopping 4) We will get info about biopsy, recent hospitalization 5) Monitor blood pressure and relate to right sided symptoms. 6) follow up in 1 month Anatomy of the Brain The brain controls the body. You can move and feel because of the brain. And it is the brai n that makes you able to think, to show emotions, and to make judgments. The brain is protec cb by the skull, tissue, and fluid. Functions of the Brain The brain s right side controls the left side of the body. And the left side of the brain controls the body s right side. Each section of the brain has specific roles. Some skills and traits occur in more than one section. The main parts of the brain and some of their fu nctions are listed below. Protecting the Brain Beneath its outer covering of tissue (called the dura), the brain is cushioned and supporte d by a special fluid. This cerebrospinal fluid fills the space between the dura and brain. A rteries and veins carry blood to and from the brain. Without a fresh supply of blood, brain tissue quickly dies. [id number] [employer]. [address] [place] [address]. All righ ts reserved. This information is not intended as a substitute for professional medical care. Always follow your healthcare professional's instructions. documented in this encounter Progress Notes Baudilio Newman MD - 02/27/2015 10:31 AM PDTFormatting of this note might be differen t from the original. Baudilio Newman MD [address] [place] [address], [address] [place] [address] Neurology Outpatient New Patient Note Referring Provider: Dr Wallace MD No address on file Chief Complaint: Chief Complaint Patient presents with New Patient CVA History of Present Illness: Cindy Arndt is a 59 y.o. female with a pertinent history of schizoaffective disorde r, Bipolar, lower back pain s/p L5-S1 TLIF, DM-II, HTN, HL, morbid obesity, ROGERS (on CPAP) an d migraines presenting for further assessment and management of recent stroke like symptoms. Ms. Arndt is accompanied by a friend who provides additional clinical history. Notes from her recent hospitalization at [facility] were reviewed in detail. Ms. Arndt started feeling off in the evening of 02/01. She felt dizzy and laid down to slee p. Upon waking, she felt her right side was numb. She tried to get up to go to the bathroom and realized she was weak as well on the right. She was taken to [facility] where she was diagnosed with a TIA/stroke and admitted for several days for a work up. This work u p included an MRI that showed no acute ischemia, but mild/moderate microvascular ischemic ch anges, carotid US that showed no significant stenosis bilaterally, CTA head and neck that wa s normal save some typical anatomic variants, and an ECHO showing an EF of 63% with a techni heidy inadequate bubble study. During this hospitalization, Ms. Arndt has resolution of her right sided symptoms (may have lasted 10 hours total), but had several episodes of similar right sided symptoms. She was reportedly on telemetry while hospitalized, and there is no re cord of an abnormal heart rhythm demonstrated in her paperwork. Since discharge, Ms. Arndt has had several additional episodes of similarly stereotyped ri ght sided weakness and numbness. She has noticed that with each episode, she gets a dull, bi frontal headache that is not associated with photophobia, phonophobia or nausea. When she ch ecks her blood pressure during an episode, it is often grossly elevated into the 190s systol ically. She was reevaluated in the [facility] ED for one such event and her HCTZ was increased. Ms. Arndt denies personal history of stroke prior to several weeks ago. She had migraines as a child, but these stopped with adulthood. She denies any significant head injuries or a history of seizures. Ms. Arndt was recently diagnosed with "myositis" that was based on dif fuse muscle aching combined with an elevated ESR and CRP and CPK per patient report. She und erwent a muscle biopsy of her right vastus lateralis during this most recent hospitalization . This specimen was characterized at [facility], but the report is not currently available for [facility]. Unfortunately, Ms. Arndt notes that her right leg was significantly impacted by her pr evious lower back problem and I fear that biopsy from this site may be clouded by neurogenic muscle changes resulting from this prior radiculopathy. Ms. Arndt started taking steroids for this myositis around 1 week before her stroke like symptoms. It helped somewhat with her muscle pain. Currently, Ms. Arndt denies any vertigo, diplopia or speech changes. She feels that sensat ion is altered on the right side of her body. She denies any overt weakness. She has been ta alexis Aggrenox as an antiplatelet agent, but this is very expensive for her. Past Medical History: Past Medical History Diagnosis Date GERD (gastroesophageal [...] HTN (hypertension) Sprain of ankle and foot Past Surgical History: Past Surgical History Procedure Laterality Date Jorje placement tibia 2001 RIGHT Cholecystectomy 1998 Mastectomy, partial 1996 lt breast, for abcesses Hysterectomy 1991 TVH, Tonsillectomy Dilatation & curretage 1973 Gastric sleeve 2013 Lumbar laminectomy 07/02/2014 MIS L5-S1 TRANSFORAMINAL LUMBAR INTERBODY FUSION ; Laterality: N/A; Surgeon: Frandy castellanos DO; Location: [facility] MA[facility] OR Current Medications: Outpatient Medications asenapine (SAPHRIS) [address] 10 mg under the tongue nightly. aspirin 81 mg chewable tablet Take 81 mg by mouth Daily. aspirin-dipyridamole (AGGRENOX) 25-200 mg per 12 hr capsule Take 1 capsule by mouth 2 time s daily. atenolol (TENORMIN) 50 mg tablet Take 25 mg by mouth nightly. B Complex Vitamins (VITAMIN B COMPLEX PO) Take 1 capsule by mouth Daily. Calcium Citrate 1040 MG TABS Take 1,040 mg by mouth Daily. Cholecalciferol (VITAMIN D3) 2000 UNITS CAPS (Taking) Take 2,000 Units by mouth 2 times d aily. Cyanocobalamin (VITAMIN B12 PO) Place 2,500 mcg under the tongue Daily. dexlansoprazole (DEXILANT) [address] capsule Take 60 mg by mouth Daily. diazepam (VALIUM) 5 mg tablet Take 1 tablet by mouth every 6 hours as needed. Digestive Enzymes (PAPAYA ENZYME PO) Take 2 capsules by mouth 3 times daily. divalproex (DEPAKOTE) 500 mg EC tablet 1250mg by mouth at bedtime fluocinonide (LIDEX) 0.05 % ointment Apply to affected area twice daily as needed gabapentin (NEURONTIN) 300 mg capsule Take 1 capsule by mouth 3 times daily. hydrochlorothiazide 25 mg tablet Take 1 tablet by mouth 2 times daily. HYDROcodone-acetaminophen (NORCO) 10-325 mg per tablet Take 1-2 tablets by mouth every 4 h ours as needed for Pain. Lactulose SOLN Take 30 mLs by mouth every 6 hours as needed (Constipation). levothyroxine (SYNTHROID) 100 mcg tablet Take 100 [...] disintegrating tablet Take 15 mg by mouth nightly. Lily [place]-3 Fatty Acids (FISH OIL CONCENTRATE) 1000 MG CAPS Take 1,000 mg by mouth 3 times natalie ly. omeprazole (PRILOSEC) 40 MG capsule Take 40 mg by mouth Daily. oxyCODONE-acetaminophen (PERCOCET) 10-325 mg per tablet Take 1 tablet by mouth every 12 ho urs as needed for Pain. PARoxetine (PAXIL) 20 mg tablet Take 20 mg by mouth Daily. tocopherol (VITAMIN E) 400 units capsule Take 400 Units by mouth 2 times daily. UNCODED MEDICATION Diagnosis: Obstructive Sleep Apnea ICD-9: 327.23 Length of Need: 99 Months Allergies: Allergies Allergen Reactions Erythromycin Nausea And Vomiting Fluoxetine Other (See Comments) "mind racing" Haloperidol Other (See Comments) "mind racing" Prochlorperazine Maleate Other (See Comments) Skin crawling/agitation Promethazine Hcl Other (See Comments) Skin crawling/agitation Topamax Other (See Comments) "mind racing and dellusions" Demerol Nausea And Vomiting Duloxetine Muscle weakness, profuse sweating Sulfa Antibiotics Rash Social History: History Social History Marital Status: Spouse Name: N/A Number of Children: N/A Years of Education: N/A Occupational History Not on file. Social History Main Topics Smoking status: Never Smoker Smokeless tobacco: Never Used Alcohol Use: No Drug Use: No Sexual Activity: No Other Topics Concern Not on file Social History Narrative Family History: Family History Problem Relation Age of Onset High blood pressure Mother High blood pressure Father Cancer Sister cervical Arthritis Mother Thyroid disease Mother Heart disease Mother Other (See Comment) Father lung disease Mental illness Father Review of Systems: GENERALLY: No fever, no night sweats, no anemia, + fatigue, + recent profound weight change s. EYES: No eye problems, + use of corrective lenses, no eye injury, no double vision, no blin dness. EARS, NOSE, AND THROAT: No changes in taste or smell, no hearing difficulty, no ringing in the ears, no ear drainage, + dizziness, no voice changes, no difficulty swallowing, no signi ficant snoring, + sleep apnea, no sinus problems, no major dental work. NEUROLOGICALLY: Please see the review of systems discussed above in the history of present illness. In addition, the patient has numbness/pain of arms and legs, awake with numbness/pa in, weakness, muscle aching, coordination difficulty, change in walk, stroke, headaches, num bness of face. PSYCHIATRIC: No depression, + sleep disorders, no anxiety, + bipolar disorder, no psychotic episodes. CARDIOVASCULAR: No heart attacks, no heart murmur, no heart fluttering, no chest pain, + an kle swelling. LUNG DISEASE: + shortness of breath, no cough, no tuberculosis, no bloody cough, no asthma, no emphysema/COPD. GASTROINTESTINAL: No bowel disease, no nausea or vomiting, no rectal bleeding, no constipat ion, no stool incontinence, no liver disease, no gallbladder disease, no abdominal pain, no ulcers. KIDNEY DISEASE: + urinary frequency, no painful or difficult urination, no incontinence. ENDOCRINE: + diabetes, + thyroid disease, no osteopenia or osteoporosis, no breast drainage . SKIN: No breast lumps, no skin changes, no rashes, no itches. HEMATOLOGIC/LYMPHATIC: No enlarged lymph nodes, no easy or unusual bleeding, no personal hi story of cancer. RHEUMATOLOGIC: No joint arthritis, no rheumatoid arthritis. Examination: BP 120/65 | Pulse 62 | Resp 18 | Ht 1.702 m (5' 7") | Wt 133.358 kg (294 lb) | BMI 46.04 kg /m2 Neck Circumference: 14" Equinunk Sleepiness Scale: 2 General: well developed and well nourished HEENT: moist mucus membranes, anicteric sclerae Cardiovascular: regular rate and rhythm Respiratory: clear to auscultation, no wheezes or rales and unlabored breathing Abdominal: soft, non-tender, active bowel sounds Extremities: peripheral pulses normal, no pedal edema, no clubbing or cyanosis Neurologic: Mental Status: alert, oriented to person, place, and time, speech is fluent, Normal fund o f knowledge Cranial Nerves: Cranial nerves II-XII intact except distractible drooping of right face and decreased sensation to light touch over right V1-V3 Motor: normal 5/5 strength in all tested muscle groups, except 4/5 at right hip flexion lazaro t is limited by pain. No muscle wasting or atrophy, no fasciculations noted, no involuntary movements, no abnormalities of position, normal resting muscle tone and no pronator drift Sensation: all sensory modalities decreased over right hemibody. Reflexes: 2+/4 and symmetric throughout. Downgoing toes bilaterally. Coordination/Cerebellar: rapid alternating hand movements intact and finger to nose intact Gait: Normal base, stride and turn. Intact tandem. Romberg test negative Radiographic Review: CTA from [facility] reviewed on [facility]. No significant stenoses seen through intracranial a nd extracranial vasculature. Laboratory Review: Lab Results Component Value Date/Time NA 127* 02/26/2015 1354 K 3.6 02/26/2015 1354 CL 93* 02/26/2015 1354 CO2 28 02/26/2015 1354 BUN 13 02/26/2015 1354 CREA 0.64 02/26/2015 1354 ALT 23 02/26/2015 1354 AST 24 02/26/2015 1354 ALKPHOS 69 02/26/2015 1354 BILITOT 0.5 02/26/2015 1354 No results found for this basename: hba1c, ava4pgm, ldl, ldldirect, ldlext, dldlex Lab Results Component Value Date WBC 7.7 02/26/2015 HGB 11.0* 02/26/2015 HCT 34.2 02/26/2015 MCV 81.2* 02/26/2015 PLT 304 02/26/2015 Assessment: Cindy Arndt is a 59 y.o. female with a history of schizoaffective disorder, Bipolar , lower back pain s/p L5-S1 TLIF, DM-II, HTN, HL, morbid obesity, ROGERS (on CPAP) and migraine s presenting for further assessment and management of recent stroke like symptoms. 1) R sided weakness/numbness: Patient has multiple stroke risk factors including HTN, HL, D M, obesity, ROGERS, and has chronic microvascular changes on MRI. That being said, the stutteri ng course and stereotyped nature is unusual, especially with no evidence of a focal intracra nial stenosis. Differential diagnosis also includes end-organ dysfunction secondary to HTN m anifesting as focal deficits, atypical complex migraine or somatoform. Her relatively comple te stroke work up is reassuring. 2) Myositis: unclear diagnosis and etiology. If Ms. Arndt truly has myositis, this may inc rease her stroke risk. We will attempt to get results from biopsy. This biopsy may be compro mised by her lower back problems. If there is suggestion of myositis, I would suggest referr al to a neuromuscular specialist for further work up. Plan: 1) Discussed the differential diagnosis with the patient at length. Discussed that regardle ss of the underlying cause of these current episodes, she has multiple stroke risk factors t hat can be modified further. 2) LDL goal in setting of TIA/stroke is 70. I do not have documentation of a recent value. I would recommend aggressive pharmacologic and lifestyle management to reach this goal, and help with weight loss. 3) Will change Aggrenox to Plavix. Aggrenox may be partially to blame for her new headaches . From a stroke perspective, there is no advantage from dual antiplatelet therapy with ASA. I would favor stopping this medication unless it is indicated from a cardiovascular perspect chris. 4) Discussed tight control of DM-II and continued use of CPAP. 5) Ms. Arndt will monitor blood pressure in relation to any further episodes. 6) Ms. Arndt will report immediately to the nearest ED if new focal neurologic deficits de velop. 7) We will try to get muscle biopsy data. Return to neurology clinic in 1 month Electronically signed by: Baudilio Newman MD, 02/27/2015 10:41 documented in th is encounter Plan of Treatment +--------+ + + + + | Date | Type | Specialty | Care Team | Description | +--------+ + + + + | 05/29/ | Procedure | Cardiology | Dora De La Torre | | | 2019 | visit | | [address] | | | | | | [place] | | | | | | [place] [address] | | | | | | [phone] | | | | | | | | +--------+ + + + + | 08/28/ | Office | Cardiology | Dora De La Torre | | | 2020 | Visit | | [address] | | | | | | [place] | | | | | | [place] [address] | | | | | | [phone] | | | | | | | | +--------+ + + + + documented as of this encounter Visit Diagnoses + + | Diagnosis | + + | 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
--- OUTSIDE RECORDS SUMMARY | ~2020-05-22 | XMS | Encounter Summary ---
Demographics + + + | Address | [address] | | | [place] [address] | + + + | Home Phone | | + + + | Preferred Language | Unknown | + + + | Marital Status | | + + + | Yazidism Affiliation | 1013 | + + + | Race | Unknown | + + + | Ethnic Group | Unknown | + + + Author + + + | Author | [facility] | | | and [place] | + + + | Organization | [facility] | | | and [place] | + + + | Address | Unknown | + + + | Phone | Unavailable | + + + Support + + + + + | Name | Relationship | Address | Phone | + + + + + | Araceli Sibley | ECON | [place] | | | | | [address] | | + + + + + Care Team Providers + +------+ + | Care Automation Sales Manager Name | Role | Phone | + +------+ + | Natalee Andersen NP | PCP | | + +------+ + Encounter Details +--------+ + + + + | Date | Type | Department | Care Team | Description | +--------+ + + + + | 07/06/ | Hospital | [facility] | Latricia Feliciano | | | 2014 | Encounter | [facility] | D, PT [address] | | | | | PHYSICAL THERAPY | [address]FTALIE [place] | | | | | [address] | [address] | | | | | [place] [address] | | | | | | [phone] | | | +--------+ + + + [...] 0 | 03/31/20 | | | (ZYPREXA ZJUSTINEIS) 15 | nightly. | | | 12 | 5 | | MG disintegrating | | | | | | | tablet | | | | | | + + + +---------+ + + | Marshall-3 Fatty | Take 1,000 mg by | [...] tablets by | 60 | 0 | 07/06/20 | | | oxyCODONE-acetaminop | mouth every 4 hours | tablet | | 14 | 4 | | hen (PERCOCET) | as needed [...] | | | | | [place] [address] | | | | | | [phone] | | | | | | | | +--------+ + + + + | 08/28/ | Office | Cardiology | Dora De La Torre | | | 2020 | Visit | | [address] | | | | | | [place] | | | | | | [place] [address] | | | | | | [phone] | | | | | | | | +--------+ + + + + documented as of this encounter Visit Diagnoses Not on filedocumented in this encounter"
--- OUTSIDE RECORDS SUMMARY | ~2020-05-22 | XMS | Encounter Summary ---
Demographics + + + | Address | [address] | | | [place] [address] | + + + | Home Phone [...] [place] | | | | | [address] | | + + + + + Care Team Providers + +------+ + | Care Liquor Gallery Operator Name | Role | Phone | + +------+ + | Adriano Patrick MD | PCP | | + +------+ + Encounter Details +--------+ + + + + | Date | Type | Department | Care Team | Description | +--------+ + + + + | 05/11/ | Documentati | [facility] | Russell Alfaro PA | | | 2016 | on | SLEEP DISORDER [address] | [address] | | | | | [address] [place] | [place], [place] | | | | | [place] [address] | [address] | | | | | [phone] | | | +--------+ + + + [...] + documented as of this encounter Progress Russell Shaikh PA - 05/11/2016 4:27 PM PDTPat was last seen in our office on 04/27/2015. S he did not cancel or show up for her appointment on 05/04/2016. This was her first no-show. She was doing well with her CPAP compliance at her last appointment. She has mild apnea. We will attempt to reschedule this appointment. Russell Alfaro PA-C documented in this enc ounter Plan of Treatment +--------+ + + + + | Date | Type | Specialty | Care Team | Description | +--------+ + + + + | 05/29/ | Procedure | Cardiology | Dora De La Torre | | | 2019 | visit | | [address] | | | | | | [address] [address] | | | | | | [place] [address] | | | | | | [phone] | | | | | | | | +--------+ + + + + | 08/28/ | Office | Cardiology | Dora De LaT orre | | | 2019 | Visit | | [address] | | | | | | [address] [address] | | | | | | [place] [address] | | | | | | [phone] | | | | | | | | +--------+ + + + + documented as of this encounter Visit Diagnoses Not on filedocumented in this encounter"
--- OUTSIDE RECORDS SUMMARY | ~2020-05-22 | XMS | Clinical Summary ---
Demographics + + + | Address | [address] | | | [place] [address] | + + + | Home Phone | | + + + | Preferred Language | Unknown | + + + | Marital Status | Single | + + + | Evangelical Affiliation | Unknown | + + + [...] [place] | | | | | [address] | | + + + + + Care Team Providers + +------+ + | Care Solution Architect Name | Role | Phone | + +------+ + PCP | Unavailable | + +------+ + Source Comments EDWARD is fully live on both [facility] and [facility] In[facility] Allergies Not on File Medications Not on [...] | [employer] | xxxxxxxxxx | 02/22/20 | [phone] | [address] | [employer] | | | RE A & | | [address] | [address] | [address] | | | [address] | | sent | | [place] | | | | | | | | [address] | | + +--------+ +--------+ + +--------+ + +--------+ +--------+ + + | Guarantor Name | Accoun | Relation to | Date | Phone | Billing Address | | | t Type | Patient | of | | | | | | | | | | + +--------+ +--------+ + + | CINDY ARNDT | Person | Self [birth year] | [address] | | | al/Fam | | 1955 | [phone] | [address] [place] | | | devonte | | | 5 (Home) | [address] | + +--------+ +--------+ + +"
--- OUTSIDE RECORDS SUMMARY | ~2020-05-22 | XMS | Encounter Summary ---
Demographics + + + | Address | [address] [facility] | | | [place] [address] | + + + | Home Phone [...] [place], [place] | | | | | [address] | | + + + + + Care Team Providers + +------+ + | Care Consumer Lender Name | Role | Phone | + +------+ + PCP | Unavailable | + +------+ + Encounter Details +--------+ + + + + | Date | Type | Department | Care Team | Description | +--------+ + + + + | 04/16/ | [facility] | [facility] | Deon Gonzales | | | 2004 | Encounter | MED CTR SLEEP | MD Laure[address] | | | | | [place] [address] | [address] [facility] | | | | | [place], [place] | [place] [address] | | | | | [address] | [phone] | | | | | [phone] | | | +--------+ + + + [...] | | | | | [place] [address] | | | | | | [phone] | | | | | | | | +--------+ + + + + | 08/28/ | Office | Cardiology | Dora De La Torre | | | 2019 | Visit | | [address] | | | | | | [address] | | | | | | [place] [address] | | | | | | [phone] | | | | | | | | +--------+ + + + + documented as of this encounter Visit Diagnoses Not on filedocumented in this encounter"
--- OUTSIDE RECORDS SUMMARY | ~2020-05-22 | XMS | Encounter Summary ---
Demographics + + + | Address | [address] | | | [place] [address] | + + + | Home Phone | | + + + | Preferred Language | Unknown | + + + | Marital Status | Single | + + + | Latter-Day Affiliation | Unknown | + + + | Race | White | + + + | Ethnic Group | Not or | + + + Author + + + | Author | [facility] | + + + | Organization | [facility] | + + + | Address | Unknown | + + + | Phone | Unavailable | + + + Support + + + + + | Name | Relationship | Address | Phone | + + + + + | Kelsy Bautista | ECON | [address] | | | | | [place] | | | | | [address] | | + + + + + Care Team Providers + +------+ + | Care Genetic Physician Name | Role | Phone | [...] | | | | | | [place] [address] | | | | | | [phone] | | | | | | | [...] in | | | | | | [place] with a | | | | | [...] [facility] | [facility] | | | | | | Laboratory, [place], | | | | | | [place], delivered | | | | | | [...] by | | | | | | [id number]-[id number]-I: | | | | | | Increased [...] istryMHC-1: | | | | | | [id number] stain | | | | | | [...] | + + + + + | [facility] | [address] | [place] [address] | | | PATHOLOGY | [place] | | | + + + + + documented in this encounter Visit Diagnoses Not on filedocumented in this encounter
--- OUTSIDE RECORDS SUMMARY | ~2020-05-22 | XMS | Encounter Summary ---
Demographics + + + | Address | [address] | | | [place] [address] | + + + | Home Phone [...] [place], [place] | | | | | [address] | | + + + + + Care Team Providers + +------+ + | Care Partner Management Consultant Name | Role | Phone | + +------+ + PCP | Unavailable | + +------+ + Encounter Details +--------+ + + + + | Date | Type | Department | Care Team | Description | +--------+ + + + + | 02/28/ | Hospital | [facility] | Deon Gonzales | | | 2012 | Encounter | MED CTR SLEEP | MD Laureano [address] | | | | | [place] [address] | [address] [facility] | | | | | [place], [place] | [place] [address] | | | | | [address] | [phone] | | | | | [phone] | | | +--------+ + + + [...] - 02/29/2012 2:36 PM PDTDATE: 02/29/2012 cc: [facility] Deon Gonzales Jr., MD, [facility] POSITIVE PRESSURE TITRATION STUDY CLINICAL INFORMATION: This [...] the patient scored 18 points on the [place] Sleepiness Scale, which endorses a severe degree [...] advised. Deon Gonzales Jr., MD, FAASM Diplomate [place] Board of Internal Medicine Diplomate in Sleep Medicine Assembly Machine Set Up Mechanic, [facility] Clinical Director Skills Katelin joy [facility] JOB #: [id number] EXT JOB #:[id number] EDITED: 03/03/2012 07:26 <Electronically Signed by Deon [...] | | | | | | [place] [address] | | | | | | [phone] | | | | | | | | +--------+ + + + + | 08/28/ | Office | Cardiology | Dora De La Torre | | | 2019 | Visit | | [address] | | | | | | [address] | | | | | | [place] [address] | | | | | | [phone] | | | | | | | | +--------+ + + + + documented as of this encounter Visit Diagnoses Not on filedocumented in this encounter"
--- OUTSIDE RECORDS SUMMARY | ~2020-05-22 | XMS | Encounter Summary ---
Demographics + + + | Address | [address] | | | [place] [address] | + + + | Home Phone [...] [place] | | | | | [address] | | + + + + + Care Team Providers + +------+ + | Care Time Piece Repairer Name | Role | Phone | [...] + + | 08/20/ | Documentati | [facility] | Katharine Moncada, | Other (urgent | | 2019 | on | CARDIOLOGY [place] | Technologist | report) | | | | [address] | | | | | | [place] | | | | | | [address] | | | | | | [phone] | | | +--------+ + + + [...] | | | | | [place] [address] | | | | | | [phone] | | | | | | | | +--------+ + + + + | 08/28/ | Office | Cardiology | Dora De La Torre | | | 2020 | Visit | | [address] | | | | | | [address] | | | | | | [place] [address] | | | | | | [phone] | | | | | | | | +--------+ + + + + documented as of this encounter Visit Diagnoses Not on filedocumented in this encounter"
--- OUTSIDE RECORDS SUMMARY | ~2020-05-22 | XMS | Encounter Summary ---
Demographics + + + | Address | [address] | | | [place] [address] | + + + | Home Phone [...] [place] | | | | | [address] | | + + + + + Care Team Providers + +------+ + | Care Pharmacist Critical Care Name | Role | Phone [...] | | | | | Procedures | PLASTICS HEAT [address] | [address] | | | | | [place] OFFICE | | [address] | | | | | CONSULTATION | [address] | [place] | | | | | NEW/ESTAB | [facility], | [address] Phone: | | | | | PATIENT 60 | [place] [address] | [phone] | | | | | MIN | Phone: | Fax: | | | | | | [phone] | [phone] | | | | | | Fax: | | | | | | | [phone] | | +--------+--------+ + + + + Encounter Details +--------+---------+ + + + | Date | Type | Department | Care Team | Description | +--------+---------+ + + + | 05/02/ | Office | [facility] | Frandy Teresa, | Spondylolisthesis of | | 2013 | Visit | NEUROSURGERY [address] | DO [address] | lumbar region | | | | [address] | [address] [place], [place] | (Primary Dx); Lumbar | | | | [place], [place] | [id number] | stenosis; Lumbar | | | | [address] | | radicular pain; | | | | [phone] | | Lumbago | +--------+---------+ + + [...] m the original. Frandy Teresa DO [address] [facility] [address] [place], [place] [id number] FAX: NEUROSURGERY HISTORY AND PHYSICAL EXAMINATION CHIEF [...] Take 15 mg by mouth nightl y. [place]-3 Fatty Acids (FISH OIL CONCENTRATE) 1000 MG [...] has no apparent deficits with short or manager 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 memory. CRANIAL NERVES: II: Acuity is intact. [...] Intrinsics 5 5 Ulnar Intrinsics 5 5 Information Technology Analyst Strength 5 5 Hip Flexion 5 4* [...] encounter Miscellaneous Notes Miscellaneous - ONBASE SCAN [facility] - 05/02/2014 12:00 AM PDTElectronically signed by [facility] at 05/08/2014 8:57 AM PDTMiscellaneous - ONBASE SCAN [facility] - 05/02/2014 12:00 AM PDTEle ctronically signed by [facility] at 05/08/2014 8:56 AM PDTdocumented in this [...] [address] | | | | | | [place] [address] | | | | | | [phone] | | | | | | | | +--------+ + + + + | 08/28/ | Office | Cardiology | Dora De La Torre | | | 2019 | Visit | | [address] | | | | | | [address] | | | | | | [place] [address] | | | | | | [phone] | | | | | | | [...]
--- OUTSIDE RECORDS SUMMARY | ~2020-05-22 | XMS | Encounter Summary ---
Demographics + + + | Address | [address] | | | [place] [address] | + + + | Home Phone [...] [place], [place] | | | | | [address] | | + + + + + Care Team Providers + +------+ + | Care Cardiology Physician Name | Role | Phone | + +------+ + PCP | Unavailable | + +------+ + Encounter Details +--------+ + + + + | Date | Type | Department | Care Team | Description | +--------+ + + + + | 12/09/ | Hospital | [facility] | Serafin Bautista | | | 2011 | Encounter | MED CTR XRAY [address] | [address], [address] | | | | | [place] | [place] | | | | | [place] [address] | [address] | | | | | [phone] | | | +--------+ + + + [...] [address] | | | | | | [place] [address] | | | | | | [phone] | | | | | | | | +--------+ + + + + | 08/28/ | Office | Cardiology | Dora De La Torre | | | 2019 | Visit | | [address] | | | | | | [address] | | | | | | [place] [address] | | | | | | [phone] | | | | | | | [...] Performed At | + + + | [facility] Diagnostic Imaging Department | [facility] | | [address] [facility] | [facility] | | PROCEDURE NOTE EPIDURAL | DIAG [...] Juan, Rad Conversion - 11/30/2013 4:45 PM [facility] | | Diagnostic Imaging Department | | [address] [facility] | | | | | | | [...]
--- OUTSIDE RECORDS SUMMARY | ~2020-05-22 | XMS | Encounter Summary ---
Demographics + + + | Address | [address] [address] [facility] [facility] [address] | | | [place] [address] | + + + | Home Phone | | + + + | Preferred Language | Unknown | + + + | Marital Status | Single | + + + | Sikhism Affiliation | Unknown | + + + | Race | White | + + + | Ethnic Group | Not or | + + + Author + + + | Author | [facility] | + + + | Organization | [facility] | + + + | Address | Unknown | + + + | Phone | Unavailable | + + + Support + + + + + | Name | Relationship | Address | Phone | + + + + + | Kelsy Bautista | ECON | [address] | | | | | [place] | | | | | [address] | | + + + + + Care Team Providers + +------+ + | Care Needle Felt Making Machine Operator Name | Role | Phone [...] [address] | | | | | | [place], [place] | | | | | | [address] | | | | | | [phone] | | | +--------+ + + + [...] as of this encounter Progress Notes Interface, Cross Country Coach In - 12/11/2006 5:03 AM [facility] DATE: 07/03/97 INFECTIOUS DISEASE [...]
--- OUTSIDE RECORDS SUMMARY | ~2020-05-22 | XMS | Encounter Summary ---
Demographics + + + | Address | [address] | | | [place] [address] | + + + | Home Phone [...] [place], [place] | | | | | [address] | | + + + + + Care Team Providers + +------+ + | Care Deck Lid Fitter Name | Role | Phone | + +------+ + PCP | Unavailable | + +------+ + Encounter Details +--------+ + + + + | Date | Type | Department | Care Team | Description | +--------+ + + + + | 12/24/ | Hospital | [facility] | | | | 1998 | Encounter | MED CTR XRAY [address] | | | | | | [address] | | | | | | [place] [address] | | | | | | [phone] | | | +--------+ + + + [...] | | | | | [place] [address] | | | | | | [phone] | | | | | | | | +--------+ + + + + | 08/28/ | Office | Cardiology | Dora De La Torre | | | 2019 | Visit | | [address] | | | | | | [address] | | | | | | [place] [address] | | | | | | [phone] | | | | | | | | +--------+ + + + + documented as of this encounter Visit Diagnoses Not on filedocumented in this encounter"
--- OUTSIDE RECORDS SUMMARY | ~2020-05-22 | XMS | Encounter Summary ---
Demographics + + + | Address | [address] | | | [place] [address] | + + + | Home Phone [...] [place] | | | | | [address] | | + + + + + Care Team Providers + +------+ + | Care News Library Director Name | Role | Phone | [...] | 09/26/ | Refill | [facility] [place] | Frandy Teresa, | Medication Refill | | 2013 | | NE[address] | DO [address] | | | | | [address] [facility] [address] | [address] [place], [place] | | | | | [place], [place] | [id number] | | | | | [address] | | | | | | [phone] | | | +--------+--------+ + + + [...] will come today. [facility] Megan Schreiber RN at 09/26/2014 [...] | | | | | | [place] [address] | | | | | | [phone] | | | | | | | | +--------+ + + + + | 08/28/ | Office | Cardiology | Dora De La Torre | | | 2019 | Visit | | [address] | | | | | | [address] | | | | | | [place] [address] | | | | | | [phone] | | | | | | | | +--------+ + + + + documented as of this encounter Visit Diagnoses Not on filedocumented in this encounter"
--- OUTSIDE RECORDS SUMMARY | ~2020-05-22 | XMS | Encounter Summary ---
Demographics + + + | Address | [address] | | | [place] [address] | + + + | Home Phone [...] [place], [place] | | | | | [address] | | + + + + + Care Team Providers + +------+ + | Care Media Aid Name | Role | Phone | + +------+ + PCP | Unavailable | + +------+ + Encounter Details +--------+ + + + + | Date | Type | Department | Care Team | Description | +--------+ + + + + | 09/23/ | Hospital | [facility] | | | | 1994 | Encounter | MED CTR LABORATORY | | | | | | [address] | | | | | | [place] | | | | | | [address] | | | | | | [phone] | | | +--------+ + + + [...] Procedure | Cardiology | Dora De La Torer | | | 2019 | visit | | [address] | | | | | | [address] | | | | | | [place] [address] | | | | | | [phone] | | | | | | | | +--------+ + + + + | 08/28/ | Office | Cardiology | Dora De La Torre | | | 2020 | Visit | | [address] | | | | | | [address] | | | | | | [place] [address] | | | | | | [phone] | | | | | | | | +--------+ + + + + documented as of this encounter Visit Diagnoses Not on filedocumented in this encounter"
--- OUTSIDE RECORDS SUMMARY | ~2020-05-22 | XMS | Encounter Summary ---
Demographics + + + | Address | [address] | | | [place] [address] | + + + | Home Phone [...] [place] | | | | | [address] | | + + + + + Care Team Providers + +------+ + | Care Clinical Physician Assistant Name | Role | Phone | + +------+ + | Thierry Fry MD | PCP | | + +------+ + Encounter Details +--------+ + + + + | Date | Type | Department | Care Team | Description | +--------+ + + + + | 03/06/ | Hospital | [facility] | Katharine Cardona PA-C | Essential | | 2015 | Encounter | MED CTR LABORATORY | [address] | hypertension | | | | [address] [place] | [place] [address] | | | | | [place], [place] | [phone] | | | | | [address] | | | | | | [phone] | | | +--------+ + + + [...] 0 | | | | (VITAMIN D-3) [address] | mouth Once a week. | | [...] + + + +---------+ + + | [place]-3 Fatty | Take 1,000 mg by | 60 each | 5 | 03/09/20 | | | Acids (FISH OIL | mouth 2 times daily. | | | 15 | 9 | | CONCENTRATE) 1000 MG | | | | | | | CAPS | | | | | | + + + +---------+ + + | [place]-3 Fatty | Take 1,000 mg by | [...] | 05/29/ | Procedure | Cardiology | Isacc De La Torre | | | 2019 | visit | | [address] | | | | | | [address] | | | | | | [place] [address] | | | | | | [phone] | | | | | | | | +--------+ + + + + | 08/28/ | Office | Cardiology | Isacc De La Torre | | | 2020 | Visit | | [address] | | | | | | [address] | | | | | | [place] [address] | | | | | | [phone] | | | | | | | [...] 12 | 7 - 18 mg/dL | [facility] | | | | | | [facility] | | | | | [facility] | | | | | | [facility] - | | | | | | LABORATORY | | + + + + + + | Creatinine | 0.66 | 0.60 - 1.30 | [facility] | | | | | mg/dL | [facility] | | | | | | [facility]ICAL | | | | | | CENTER - | | | | | | LABORATORY | | + + + + + + | eGFR, | >60Comment: GLOMERULAR | >=60 | [facility] | | | non- | FILTRATION | mL/min/1.73m2 | [facility] | | | [place] | RATE,ESTIMATED | | MEDICAL | | | | mL/min/1.38b5Wrpi than | | CENTER - | | [...] + | [address] | [address] | [place], [place] | [phone] | | [facility] | | [address] | | | - LABORATORY | | | | + + + + + documented in this encounter Visit Diagnoses + + | Diagnosis | + + | Essential hypertension Unspecified essential hypertension | + + documented in this encounter"
--- OUTSIDE RECORDS SUMMARY | ~2020-05-22 | XMS | Encounter Summary ---
Demographics + + + | Address | [address] | | | [place] [address] | + + + | Home Phone [...] [place], [place] | | | | | [address] | | + + + + + Care Team Providers + +------+ + | Care Sawmill Manager Name | Role | Phone | + +------+ + PCP | Unavailable | + +------+ + Encounter Details +--------+ + + + + | Date | Type | Department | Care Team | Description | +--------+ + + + + | 12/31/ | Hospital | [facility] | | | | 1996 | Encounter | MED CTR XRAY [address] | | | | | | [address] | | | | | | [place] [address] | | | | | | [phone] | | | +--------+ + + + [...] | | | | | | [address] | | | | | | [place] [address] | | | | | | [phone] | | | | | | | | +--------+ + + + + | 08/28/ | Office | Cardiology | Dora De La Torre | | | 2019 | Visit | | [address] | | | | | | [address] | | | | | | [place] [address] | | | | | | [phone] | | | | | | | | +--------+ + + + + documented as of this encounter Visit Diagnoses Not on filedocumented in this encounter"
--- OUTSIDE RECORDS SUMMARY | ~2020-05-22 | XMS | Encounter Summary ---
Demographics + + + | Address | [address] | | | [place] [address] | + + + | Home Phone [...] + + + + + | Araceli Sibely | ECON | [place], [place] | | | | | [address] | | + + + + + Care Team Providers + +------+ + | Care Para Educator Name | Role | Phone | + +------+ + PCP | Unavailable | + +------+ + Encounter Details +--------+ + + + + | Date | Type | Department | Care Team | Description | +--------+ + + + + | 06/23/ | Hospital | [facility] | | | | 2000 | Encounter | MED CTR GENERIC OP | | | | | | CONV DEPT [address] | | | | | | [place], | | | | | | [place] [address] | | | | | | [phone] | | | +--------+ + + + [...] | | | | | [place] [address] | | | | | | [phone] | | | | | | | | +--------+ + + + + | 08/28/ | Office | Cardiology | Dora De La Torre | | | 2019 | Visit | | [address] | | | | | | [address] | | | | | | [place] [address] | | | | | | [phone] | | | | | | | | +--------+ + + + + documented as of this encounter Visit Diagnoses Not on filedocumented in this encounter"
--- OUTSIDE RECORDS SUMMARY | ~2020-05-22 | XMS | Encounter Summary ---
Demographics + + + | Address | [address] | | | [place] [address] | + + + | Home Phone [...] [place] | | | | | [address] | | + + + + + Care Team Providers + +------+ + | Care Parts Picker Name | Role | Phone | + [...] + + | 02/06/ | Telephone | [facility] | Roxannmiguel ángelDora | Patient Concerns | | 2020 | | CARDIOLOGY [place] | [address] | | | | | [address] | [address] | | | | | [address] | [place] [address] | | | | | [place] | [phone] | | | | | [address] | | | | | | [phone] | | | +--------+ + + + [...] [address] | | | | | | [place] [address] | | | | | | [phone] | | | | | | | | +--------+ + + + + | 08/28/ | Office | Cardiology | Dora De La Torre | | | 2019 | Visit | | [address] | | | | | | [address] | | | | | | [place] [address] | | | | | | [phone] | | | | | | | | +--------+ + + + + documented as of this encounter Visit Diagnoses Not on filedocumented in this encounter"
--- OUTSIDE RECORDS SUMMARY | ~2020-05-22 | XMS | Encounter Summary ---
Demographics + + + | Address | [address] | | | [place] [address] | + + + | Home Phone [...] [place], [place] | | | | | [address] | | + + + + + Care Team Providers + +------+ + | Care Founder And Chief Executive Officer Name | Role | Phone | + +------+ + PCP | Unavailable | + +------+ + Encounter Details +--------+ + + + + | Date | Type | Department | Care Team | Description | +--------+ + + + + | 08/21/ | Hospital | [facility] | | | | 1996 | Encounter | MED CTR LABORATORY | | | | | | [address] | | | | | | [place] | | | | | | [address] | | | | | | [phone] | | | +--------+ + + + [...] | | | | | [place] [address] | | | | | | [phone] | | | | | | | | +--------+ + + + + | 08/28/ | Office | Cardiology | Dora De La Torre | | | 2020 | Visit | | [address] | | | | | | [address] | | | | | | [place] [address] | | | | | | [phone] | | | | | | | | +--------+ + + + + documented as of this encounter Visit Diagnoses Not on filedocumented in this encounter"
--- OUTSIDE RECORDS SUMMARY | ~2020-05-22 | XMS | Encounter Summary ---
Demographics + + + | Address | [address] | | | [place] [address] | + + + | Home Phone [...] [place], [place] | | | | | [address] | | + + + + + Care Team Providers + +------+ + | Care Major Sales Associate Name | Role | Phone | + +------+ + PCP | Unavailable | + +------+ + Encounter Details +--------+ + + + + | Date | Type | Department | Care Team | Description | +--------+ + + + + | 02/02/ | Hospital | [facility] | Serafin Bautista | | | 2011 | Encounter | MED CTR XRAY [address] | [address] | | | | | [place] | [place] | | | | | [place] [address] | [address] | | | | | [phone] | | | +--------+ + + + [...] [address] | | | | | | [place] [address] | | | | | | [phone] | | | | | | | | +--------+ + + + + | 08/28/ | Office | Cardiology | Dora De La Torre | | | 2019 | Visit | | [address] | | | | | | [address] | | | | | | [place] [address] | | | | | | [phone] | | | | | | | [...] Performed At | + + + | [facility] Diagnostic Imaging Department | [place] | | [address] [facility] | [facility] | | PROCEDURE: EPIDURAL STEROID | DIAG [...] Transcribed Date/Time: | | | 02/03/2012 18:45 Singeing Torch Operator: <Electronically Signed | | | by Serafin Bautista MD> 02/14/12 0916 | | + + + + + | Procedure Note | + + | Juan, Rad Conversion - 11/30/2013 5:[address] [facility] | | Diagnostic Imaging Department | [...] | Transcribed Date/Time: 02/03/2012 18:45 | | Singeing Torch Operator: | | <Electronically Signed by Serafin Bautista [...]
--- OUTSIDE RECORDS SUMMARY | ~2020-05-22 | XMS | Encounter Summary ---
Demographics + + + | Address | [address] | | | [place] [address] | + + + | Home Phone [...] [place], [place] | | | | | [address] | | + + + + + Care Team Providers + +------+ + | Care Cna Name | Role | Phone | + +------+ + PCP | Unavailable | + +------+ + Encounter Details +--------+ + + + + | Date | Type | Department | Care Team | Description | +--------+ + + + + | 06/30/ | Hospital | [facility] | | | | 2000 | Encounter | [facility] | | | | | | [address] | | | | | | [place] | | | | | | [address] | | | | | | [phone] | | | +--------+ + + + [...] | | | | | [place] [address] | | | | | | [phone] | | | | | | | | +--------+ + + + + | 08/28/ | Office | Cardiology | [facility] | | | 2020 | Visit | | [address] | | | | | | [address] | | | | | | [place] [address] | | | | | | [phone] | | | | | | | | +--------+ + + + + documented as of this encounter Visit Diagnoses Not on filedocumented in this encounter"
--- OUTSIDE RECORDS SUMMARY | ~2020-05-22 | XMS | Encounter Summary ---
Demographics + + + | Address | [address] | | | [place] [address] | + + + | Home Phone [...] [place] | | | | | [address] | | + + + + + Care Team Providers + +------+ + | Care Commercial Cleaner Name | Role | Phone | + [...] | | | spondylolist | | [address] | | | | | hesis | | [place], | | | | | Spinal | | [place] [address] | | | | | stenosis, | | Phone: | | | | | lumbar | | [phone] | | | | | region, | | Fax: | | | | | without | | [phone] | | | | | neurogenic | [...] | | | | | [address] | [address] [place] | | | | | [place] | [phone] | | | | | [address] | | | | | | [phone] | | | +--------+ + + + [...] Easy mask AW. DL times one with [facility] easy view | | | 2 | Intubation | | | | 2 | | | | | 6 | | | +----+---+ + + | | 1 | AN Bite | | | | 2 | Block | | | | 2 | | | | | 7 | | | +----+---+ + + | | 1 | Burton | | | | 2 | 43-degrees | | | | 3 | | | | | 1 | | | +----+---+ + + | | 1 | Burton off | | | | 4 | [...] EVALUATION Cindy Arndt 58 y.o. female 1955 [id number] Procedure: Procedure(s):MIS L5-S1 TRANSFORAMINAL LUMBAR INTERBODY FUSION [...] by Zen Mccord MD 07/02/2014 14:55 [facility] nesthesia Preproc edure Evaluation - Zen Mccord MD - 07/02/2014 8:36 AM PDTFormatting of this note m ight be different from the original. ANESTHESIA PREANESTHESIA EVALUATION Cindy Arndt 58 y.o. female 1955 [id number] Scheduled procedure LAMINECTOMY PLIF/TLIF INSTRUMENTATION [184] - MIS L5-S1 TRANSFORAMINAL LUMBAR INTERBODY FUSION Medical history, anesthesia, medications, allergy histories reviewed. ECG reviewed. Labs reviewed. ROS / Med History Ane (+) PONV. NPO status verified. CV (+) hypertension.(-) CAD, past MS, CHF, congenital heart disease, pulmonary hypertension, p [...] [address]ANTU | | | | | | [place] [address] | | | | | | [phone] | | | | | | | | +--------+ + + + + | 08/28/ | Office | Cardiology | Dora De La Torre | | | 2019 | Visit | | [address] | | | | | | [place] | | | | | | [place] [address] | | | | | | [phone] | | | | | | | [...]
--- OUTSIDE RECORDS SUMMARY | ~2020-05-22 | XMS | Encounter Summary ---
Demographics + + + | Address | [address] [facility] | | | [place] [address] | + + + | Home Phone [...] [place] | | | | | [address] | | + + + + + Care Team Providers + +------+ + | Care Bicycle Designer Name | Role | Phone | [...] [address] | | | | | [place], [place] | Shaheen Simons | | | | | [address] | [place] [address] | | | | | [phone] | [phone] | | | | | | | [...] CANTU | | | | | | [place] [address] | | | | | | [phone] | | | | | | | | +--------+ + + + + | 08/28/ | Office | Cardiology | Dora De La Torre | | | 2019 | Visit | | [address] | | | | | | [address] | | | | | | [place] [address] | | | | | | [phone] | | | | | | | [...] GIVEN Testing | | | performed at [facility];[address] [place] [address];[place] [address] CULTURE | | | 50,000 TO 100,000 CFU/ML | | | MIXED GRAM POSITIVE HAIDER NO SUSCEPTIBILITY TO FOLLOW | | | MULTIPLE ORGANISM TYPES PRESENT, | | | SUGGESTIVE OF CONTAMINATION OR COLONIZATION. SUGGEST RECOLLECTION FOR | | | CULTURE. Testing | | | performed at [facility];[address] [place] [address];[place] [address] REPORT | | | STATUS 06/08/2012 FINAL [...]
--- OUTSIDE RECORDS SUMMARY | ~2020-05-22 | XMS | Encounter Summary ---
Demographics + + + | Address | [address] | | | [place] [address] | + + + | Home Phone [...] [place] | | | | | [address] | | + + + + + Care Team Providers + +------+ + | Care Product Safety Manager Name | Role | Phone | + +------+ + | Basim Bolanos MD | PCP | | + +------+ + Encounter Details +--------+ + + + + | Date | Type | Department | Care Team | Description | +--------+ + + + + | 01/24/ | Abstract | [facility] [place] | [facility], | | | 2012 | | GASTROENTEROLOGY | FORTUNATO Thomas [address] | | | | | [address] | [address] | | | | | [address] [place], [place] | [place], [place] | | | | | [address] | [address] | | | | | [phone] | | | +--------+ + + + [...] | | | | | [place] [address] | | | | | | [phone] | | | | | | | | +--------+ + + + + | 08/28/ | Office | Cardiology | Dora De La Torre | | | 2019 | Visit | | [address] | | | | | | [place] | | | | | | [place] [address] | | | | | | [phone] | | | | | | | | +--------+ + + + + documented as of this encounter Visit Diagnoses Not on filedocumented in this encounter"
--- OUTSIDE RECORDS SUMMARY | ~2020-05-22 | XMS | Encounter Summary ---
Demographics + + + | Address | [address] [facility] | | | [place] [address] | + + + | Home Phone [...] [place], [place] | | | | | [address] | | + + + + + Care Team Providers + +------+ + | Care Overhead Crane Inspector Name | Role | Phone | + +------+ + PCP | Unavailable | + +------+ + Encounter Details +--------+ + + + + | Date | Type | Department | Care Team | Description | +--------+ + + + + | 12/06/ | Hospital | [facility] | | | | 1994 | Encounter | MED CTR LABORATORY | | | | | | [address] | | | | | | [place] | | | | | | [address] | | | | | | [phone] | | | +--------+ + + + [...] | | | | | [place] [id number] | | | | | | [phone] | | | | | | | | +--------+ + + + + | 08/28/ | Office | Cardiology | Dora De La Torre | | | 2020 | Visit | | [address] | | | | | | [address] [address] | | | | | | [place] [id number] | | | | | | [phone] | | | | | | | | +--------+ + + + + documented as of this encounter Visit Diagnoses Not on filedocumented in this encounter"
--- OUTSIDE RECORDS SUMMARY | ~2020-05-22 | XMS | Encounter Summary ---
Demographics + + + | Address | [address] | | | [place] [address] | + + + | Home Phone [...] [place] | | | | | [address] | | + + + + + Care Team Providers + +------+ + | Care Maintenance And Engineering Manager Name | Role | Phone | [...] | | | [address] | [place] [address] | | | | | [place] [address] | | | | | | [phone] | | | +--------+ + + + [...] CANTU | | | | | | [place] [address] | | | | | | [phone] | | | | | | | | +--------+ + + + + | 08/28/ | Office | Cardiology | Dora De La Torre | | | 2019 | Visit | | [address] | | | | | | [address] | | | | | | [place] [address] | | | | | | [phone] | | | | | | | | +--------+ + + + + documented as of this encounter Procedures + +--------+ + + + | Procedure Name | Priori | Date/Time | Associated Diagnosis | Comments | | | ty | | | | + +--------+ + + + | CT ANGIOGRAM NECK W | Routin | 02/14/2015 | | Results for this | | CONTRAST | e | 12:00 AM | | procedure are in the | | | | PDT | | results section. | + +--------+ + + + documented in this encounter Results CT Angiogram Neck w Contrast (02/14/2015 12:00 AM PDT) + + | Specimen [...]
--- OUTSIDE RECORDS SUMMARY | ~2020-05-22 | XMS | Encounter Summary ---
Demographics + + + | Address | [address] [facility] [address] [address] | | | [place] [address] | + + + | Home Phone [...] [place] | | | | | [address] | | + + + + + Care Team Providers + +------+ + | Care Paver Installer Name | Role | Phone | [...] | Telephone | [facility] [place] | [facility], | [facility] | | 2012 | | GASTROENTEROLOGY | FORTUNATO Thomas [address] | | | | | [address] | [address] | | | | | [address] [place], [place] | [place], [place] | | | | | [address] | [address] | | | | | [phone] | | | +--------+ + + + [...] C[address]U | | | | | | [place] [address] | | | | | | [phone] | | | | | | | | +--------+ + + + + | 08/28/ | Office | Cardiology | Dora De La Torre | | | 2019 | Visit | | [address] | | | | | | [place] | | | | | | [place] [address] | | | | | | [phone] | | | | | | | | +--------+ + + + + documented as of this encounter Visit Diagnoses Not on filedocumented in this encounter"
--- OUTSIDE RECORDS SUMMARY | ~2020-05-22 | XMS | Encounter Summary ---
Demographics + + + | Address | [address] | | | [place] [address] | + + + | Home Phone [...] [place] | | | | | [address] | | + + + + + Care Team Providers + +------+ + | Care Tax Examiner Name | Role | Phone | [...] | Frandy Simons DO | [address] | | | | | of skin | [address] | [place], | | | | | sensation | [address] | [place] | | | | | Arthrodesis | [place], [place] | [address] | | | | | status Left | [address] | Phone: | | | | | leg | Phone: | [phone] | | | | | weakness | [phone] | Fax: | | | | | Procedures | Fax: | [phone] | | | | | MRI Lumbar | [phone] | | | | | | Spine [...] | Frandy Simons DO | [address] | | | | | of skin | [address] | [place], | | | | | sensation | [address] | [place] | | | | | Arthrodesis | [place] | [address] | | | | | status Left | [address] | Phone: | | | | | leg | Phone: | [phone] | | | | | weakness | [phone] | Fax: | | | | | Procedures | Fax: | [phone] | | | | | MRI Lumbar | [phone] | | | | | | Spine wo | | | | | | | Contrast | | | +--------+--------+ + + + + Encounter Details +--------+ + + + + | Date | Type | Department | Care Team | Description | +--------+ + + + + | 08/19/ | Hospital | [facility] | Frandy Teresa, | Status post lumbar | | 2013 | Encounter | MED CTR MRI [address] | DO [address] | spinal fusion; Left | | | | [place], | [address] [place] | leg numbness; Left | | | | [place] [address] | [address] | leg weakness | | | | [phone] | | | +--------+ + + + [...] + + + +---------+ + + | Moul[place]-3 Fatty | Take 1,000 mg by | [...] of this encounter Miscellaneous Notes Miscellaneous - CHAPITO MEDINA - 09/06/2014 12:00 AM PST documented in this encounter [...] [address] | | | | | | [place] [address] | | | | | | [phone] | | | | | | | | +--------+ + + + + | 08/28/ | Office | Cardiology | Dora De La Torre | | | 2019 | Visit | | [address] | | | | | | [address] | | | | | | [place] [address] | | | | | | [phone] | | | | | | | [...] the round structure with high T1 and S6zmflhr in the right L3 vertebral | | [...] + | MISCELLANEOUS LAB | | | [phone] | + +---------+ + + | MISCELANIOUS LAB | | | [phone] | + +---------+ + + documented in [...]
--- OUTSIDE RECORDS SUMMARY | ~2020-05-22 | XMS | Encounter Summary ---
Demographics + + + | Address | [address] [facility] [address] | | | [place] [address] | + + + | Home Phone [...] [place] | | | | | [address] | | + + + + + Care Team Providers + +------+ + | Care Egg Gatherer Name | Role | Phone | [...] | Transcriptions | + + | Interface, Consultant In - 10/24/2006 3:09 AM PST | | [facility] | | Road [place], [place] [address] [place] | | [facility] CenterOPERATION RECORDMed Rec No.: [id number] Date: [...]
--- OUTSIDE RECORDS SUMMARY | ~2020-05-22 | XMS | Encounter Summary ---
Demographics + + + | Address | [address] [facility] [address] | | | [place] [address] | + + + | Home Phone [...] [place] | | | | | [address] | | + + + + + Care Team Providers + +------+ + | Care Account Retention Representative Name | Role | Phone | [...] + | 05/02/ | Telephone | [facility] | Frandy Teresa, | Other | | 2013 | | NEUROSURGERY [address] | DO [address] | | | | | [address] | [address] [place], [place] | | | | | [place], [place] | [id number] | | | | | [address] | | | | | | [phone] | | | +--------+ + + + [...] She is scheduled for surgery on 06/25/14. Shanye elephone Shayne Barr Cert MA - 05/02/2014 [...] | | | | | [place] [address] | | | | | | [phone] | | | | | | | | +--------+ + + + + | 08/28/ | Office | Cardiology | Dora De La Torre | | | 2019 | Visit | | [address] | | | | | | [address] | | | | | | [place] [address] | | | | | | [phone] | | | | | | | | +--------+ + + + + documented as of this encounter Visit Diagnoses Not on filedocumented in this encounter"
--- OUTSIDE RECORDS SUMMARY | ~2020-05-22 | XMS | Encounter Summary ---
Demographics + + + | Address | [address] | | | [place] [address] | + + + | Home Phone [...] [place], [place] | | | | | [address] | | + + + + + Care Team Providers + +------+ + | Care General Practice Name | Role | Phone | + +------+ + PCP | Unavailable | + +------+ + Encounter Details +--------+ + + + + | Date | Type | Department | Care Team | Description | +--------+ + + + + | 02/02/ | Hospital | [facility] | | | | 1997 - | Encounter | MED CTR GENERIC PSY | | | | | | CONV DEPT [address] | | | | 02/05/ | | [address], | | | | 1997 | | [place] [address] | | | | | | [phone] | | | +--------+ + + + [...] [address] | | | | | | [place] [address] | | | | | | [phone] | | | | | | | | +--------+ + + + + | 08/28/ | Office | Cardiology | Dora De La Torre | | | 2019 | Visit | | [address] | | | | | | [address] | | | | | | [place] [address] | | | | | | [phone] | | | | | | | | +--------+ + + + + documented as of this encounter Visit Diagnoses Not on filedocumented in this encounter"
--- OUTSIDE RECORDS SUMMARY | ~2020-05-22 | XMS | Encounter Summary ---
Demographics + + + | Address | [address] [address] | | | [place] [address] | + + + | Home Phone [...] [place] | | | | | [address] | | + + + + + Care Team Providers + +------+ + | Care Mobile Application Tester Name | Role | Phone | + +------+ + | Natalee Andersen NP | PCP | | + +------+ + Encounter Details +--------+---------+ + + + | Date | Type | Department | Care Team | Description | +--------+---------+ + + + | 06/25/ | Surgery | [facility] | Frandy Teresa, | Canceled | | 2013 | | MED CTR OR INTRA OP | DO [address] | PROCEDURE NOT | | | | [address] | [address] [place], [place] | PERFORMED | | | | [place], [place] | [address] | | | | | [address] | | | | | | [phone] | | | +--------+---------+ + + + [...] + + + +---------+ + + | Maybeury-3 Fatty | Take 1,000 mg by | [...] this en counter H&P Notes ONBRUCE ABREU [facility] - 06/21/2014 12:00 AM PDT 14 [...] MD at 06/26/2014 8:05 AM PDTONBRUCE ABREU [facility] - 06/26 12:00 AM PDT NBRUCE ZAMORA N [facility] - 06/26/2014 12:00 AM PDT NBASE SCAN [facility] - 06/12/2014 12:00 AM PDTElectronically signed by Mariah Schulte at 06/12 7:30 AM [facility] - 06/11/2014 12:00 AM PDT documented in this encounter Miscellaneous Notes Miscellaneous - ONBASE SCAN [facility] - 06/26/2014 12:00 AM PDT lan [...] stenosis, lumbar region, without neurogenic claudication ). Sharepoint Application Developer visit is in response to an electronic spiritual care consult request. Patient wa s resting comfortably in bed; she was attended by her mom and dad - both sate nearby and see med very attentive and supportive. Cindy is Church, attends [employer], and is strong in her rangel. She is excited about taking care of her back problem and fe els very secure in Dr. Teresa's care. She welcomed prayer, and expressed appreciation for th visit. Follow up with regular visits, emotional and spiritual support. iscellaneo us - ONBASE SCAN [facility] - 06/25/2014 12:00 AM PDTElectronically signed [...] | | | | | | [place] [address] | | | | | | [phone] | | | | | | | | +--------+ + + + + | 08/28/ | Office | Cardiology | Dora De La Torre | | | 2019 | Visit | | [address] | | | | | | [address] | | | | | | [place] [address] | | | | | | [phone] | | | | | | | [...] | | | | mmol/L | [facility] | | | | [...] mL/min/1.73m2 | [facility] | | | Bangladeshi | RATE,ESTIMATED | | MEDICAL | | | | mL/min/1.74v4Nvet than | | CENTER - | | [...] + | [facility] | [address] | [place], [place] | [phone] | | [facility] | | [address] | | | - LABORATORY | | | | + + + + + | [facility] | [address] | [place], [place] | | | [facility] | | [address] [place] [address] | | | - LABORATORY | | [...] + | [facility] | [address] | [place] | [phone] | | [facility] | | [address] | | | - LABORATORY | | | | + + + + + | [facility] | [address] | [place] | | | [facility] | | [address], [facility] | | | - LABORATORY [...] | Time | | seconds | [facility] | | | | [...] [address] | [place] | [phone] | | [facility] | | [address] | | | - LABORATORY | | | | + + + + + | [facility] | [address] | [place] | | | [facility] | | [address], [facility] | | | - LABORATORY [...] St | [place] | | | [facility] | | [address] | | | - BLOOD BANK | [...] + | [facility] | [address] | [place], [place] | [phone] | | [facility] | | [address] | | | - LABORATORY | | | | + + + + + | [facility] | [address] | [place], [place] | | | [facility] | | [address] | | | - LABORATORY [...] PM PDT | | | | | Carol 06/25/14 at 1345, Pre-op | | | | | | + +---------+ +--------+-------+---+ +---+---+ | | | +---+---+ documented in this encounter
--- OUTSIDE RECORDS SUMMARY | ~2020-05-22 | XMS | Encounter Summary ---
Demographics + + + | Address | [address] | | | [place] [address] | + + + | Home Phone [...] [place] | | | | | [address] | | + + + + + Care Team Providers + +------+ + | Care Overhauler Helper Name | Role | Phone | [...] + | 07/19/ | Telephone | [facility] | Frandy Teresa, | Appointment | | 2013 | | NEUROSURGERY [address] | DO [address] | | | | | [address] | [address] [place], [place] | | | | | [place], [place] | [id number] | | | | | [address] | | | | | | [phone] | | | +--------+ + + + [...] Spivey - 07/22/2014 8:09 AM Nakia from [facility] called back this morning to isamar mcarthure that she spoke with the patient again regarding this appointment and the patient would be ok with rescheduling to a time the following week. She just didn't want to make the trip down here right after she got back home to [place]. Janes can be reached at [phone] ectronically signed by Tiffani Humphrey at 07/22/2014 8:11 AM PDTTelephone Encounter - Lashawn Metzger - 07/19/2014 12:56 PM PDTSuarlen from [facility] called to confirm Cindy' s appointment for [...] | | | | | [place] [address] | | | | | | [phone] | | | | | | | | +--------+ + + + + | 08/28/ | Office | Cardiology | Dora De La Torre | | | 2019 | Visit | | [address] | | | | | | [address] | | | | | | [place] [address] | | | | | | [phone] | | | | | | | | +--------+ + + + + documented as of this encounter Visit Diagnoses Not on filedocumented in this encounter"
--- OUTSIDE RECORDS SUMMARY | ~2020-05-22 | XMS | Encounter Summary ---
Demographics + + + | Address | [address] [facility] [address] | | | [place] [address] | + + + | Home Phone | | + + + | Preferred Language | Unknown | + + + | Marital Status | Single | + + + | Moravian Affiliation | Unknown | + + + [...] [place] | | | | | [address] | | + + + + + [...] Clinic | | | | | | [facility], [address] | | | | | | [place], [place] | | | | | | [address] | | | | | | [phone] | | | +--------+ + + + [...] as of this encounter Progress Notes Interface, Copy Operator In - 12/11/2006 5:03 AM [facility] DATE: 07/03/97 INFECTIOUS DISEASE CLINIC: REFERRED [...]
--- OUTSIDE RECORDS SUMMARY | ~2020-05-22 | XMS | Encounter Summary ---
Demographics + + + | Address | [address] | | | [place] [address] | + + + | Home Phone [...] [place] | | | | | [address] | | + + + + + Care Team Providers + +------+ + | Care Founder And Ceo Name | Role | Phone | + +------+ + | Natalee Andersen NP | PCP | | + +------+ + Reason for Visit + +--------+ + | Reason | Onset | Comments | | | Date | | + +--------+ + | Appointment | 02/27/ | New Patient | | | 2014 | | + +--------+ + Encounter Details +--------+ + + + + | Date | Type | Department | Care Team | Description | +--------+ + + + + | 02/27/ | Telephone | [facility] | Katharine Cardona PA-C | Appointment (New | | 2014 | | MEDICINE [address] | Patient) | | | | [address], | [place] [address] | | | | | [place] [address] | [phone] | | | | | [phone] | | | +--------+ + + + [...] was informed that Dr. Fry and Katharine DEGROOT do not generally prescribe narcotic medications for patients. Those patients are re ferred to [facility]. Cindy stated that would be fine with her. She stated she is 7 months post-back surgery per Dr. Teresa and only uses the hydrocodone and oxycodone occ asionally. She said she is trying to get off the oxycodone completely. Cindy said she saw Dr. Newman this morning to address her myositis issues. [facility]ointment scheduled for 03-06-15 with Katharine DEGROOT. [...] [address] | | | | | | [place] [address] | | | | | | [phone] | | | | | | | | +--------+ + + + + | 08/28/ | Office | Cardiology | Dora De La Torre | | | 2019 | Visit | | [address] | | | | | | [address] | | | | | | [place] [address] | | | | | | [phone] | | | | | | | | +--------+ + + + + documented as of this encounter Visit Diagnoses Not on filedocumented in this encounter"
--- OUTSIDE RECORDS SUMMARY | ~2020-05-22 | XMS | Encounter Summary ---
Demographics + + + | Address | [address] [facility] [facility] [address] | | | [place] [address] | + + + | Home Phone [...] [place] | | | | | [address] | | + + + + + Care Team Providers + +------+ + | Care Security Systems Administrator Name | Role | Phone | [...] | | | | | [address] [facility], | address | | | | | [address] [place] | | | | | | [place] [address] | | | | | | [phone] | | | +--------+ + + + [...] stroke work up she had done at [facility] was quite thorough and she did not [...] [address] | | | | | | [place] [address] | | | | | | [phone] | | | | | | | | +--------+ + + + + | 08/28/ | Office | Cardiology | Dora De La Torre | | | 2019 | Visit | | [address] | | | | | | [address] | | | | | | [place] [address] | | | | | | [phone] | | | | | | | | +--------+ + + + + documented as of this encounter Visit Diagnoses Not on filedocumented in this encounter"
--- OUTSIDE RECORDS SUMMARY | ~2020-05-22 | XMS | Encounter Summary ---
Demographics + + + | Address | [address] [facility] [facility] [address] | | | [place] [address] | + + + | Home Phone [...] [place] | | | | | [address] | | + + + + + Care Team Providers + +------+ + | Care Paper Coating Machine Operator Name | Role | Phone [...] | | | | | | | [address] | | | | | | | Phone: | | | | | | | [phone] | | | | | | | Fax: | | | | | | | [phone] | | +--------+ + + + + + Reason for Visit + + + | Reason | Comments | + + + | Follow-up | 3 mo po | + + + Encounter Details +--------+---------+ + + + | Date | Type | Department | Care Team | Description | +--------+---------+ + + + | 09/27/ | Office | [facility] | Frandy Teresa, | Lumbar spondylosis | | 2013 | Visit | NEUROSURGERY [address] | DO [address] | (Primary Dx); S/P | | | | [address] | [address] [place], [place] | lumbar fusion | | | | [place], [place] | [address] | | | | | [address] | | | | | | [phone] | | | +--------+---------+ + + + [...] [address] [facility] [place] [address] FAX: NEUROSURGERY FOLLOW-UP CHIEF COMPLAINT: Chief Complaint [...] Laterality: N/A; Surgeon: Frandy castellanos DO; Location: [facility] MAIN OR CURRENT MEDICATIONS: Current [...] Take 15 mg by mouth nightl y. [place]-3 Fatty Acids (FISH OIL CONCENTRATE) 1000 MG [...] encounter Miscellaneous Notes Miscellaneous - [facility] - 09/27/2014 12:00 AM PST documented [...] | | | | | [place] [address] | | | | | | [phone] | | | | | | | | +--------+ + + + + | 08/28/ | Office | Cardiology | Dora De La Torre | | | 2019 | Visit | | [address] | | | | | | [address] | | | | | | [place] [address] | | | | | | [phone] | | | | | | | [...]
--- OUTSIDE RECORDS SUMMARY | ~2020-05-22 | XMS | Encounter Summary ---
Demographics + + + | Address | [address] [facility] | | | [place] [address] | + + + | Home Phone [...] [place] | | | | | [address] | | + + + + + Care Team Providers + +------+ + | Care Credit Analysis Manager Name | Role | Phone [...] + + | 08/16/ | Documentati | [facility] | Katharine Moncada, | Other (urgent | | 2019 | on | CARDIOLOGY [place] | Technologist | report) | | | | [address] | | | | | | [place] | | | | | | [address] | | | | | | [phone] | | | +--------+ + + + [...] | | | | | [place] [address] | | | | | | [phone] | | | | | | | | +--------+ + + + + | 08/28/ | Office | Cardiology | Dora De La Torre | | | 2020 | Visit | | [address] | | | | | | [address] | | | | | | [place] [address] | | | | | | [phone] | | | | | | | | +--------+ + + + + documented as of this encounter Visit Diagnoses Not on filedocumented in this encounter"
--- OUTSIDE RECORDS SUMMARY | ~2020-05-22 | XMS | Encounter Summary ---
Demographics + + + | Address | [address] [address] | | | [place] [address] | + + + | Home Phone [...] [place] | | | | | [address] | | + + + + + Care Team Providers + +------+ + | Care Public Health Staff Nurse Name | Role | Phone | [...] + + | 03/07/ | Telephone | [facility] | Katharine Cardona PA-C | Results | | 2014 | | MEDICINE [place] | [address] [facility] | | | | | [address] | [place] [address] | | | | | [place], [place] | [phone] | | | | | [address] | | | | | | [phone] | | | +--------+ + + + [...] Miscellaneous Notes Telephone Encounter - Adrianne Horton, Litigation Counsel - 03/11/2015 3:41 PM PDTCalled Pat and delivered her results. Patient verbalized good understanding. elephone Encounter - Adrianne Horton , Litigation Counsel - 03/11/2015 8:40 AM PDTCall placed to [...] [address] | | | | | | [place] [address] | | | | | | [phone] | | | | | | | | +--------+ + + + + | 08/28/ | Office | Cardiology | Dora De La Torre | | | 2019 | Visit | | [address] | | | | | | [address] | | | | | | [place] [address] | | | | | | [phone] | | | | | | | | +--------+ + + + + documented as of this encounter Visit Diagnoses Not on filedocumented in this encounter"
--- OUTSIDE RECORDS SUMMARY | ~2020-05-22 | XMS | Encounter Summary ---
Demographics + + + | Address | [address] | | | [place] [address] | + + + | Home Phone [...] [place], [place] | | | | | [address] | | + + + + + Care Team Providers + +------+ + | Care Diesel Engine Fitter Name | Role | Phone | + +------+ + PCP | Unavailable | + +------+ + Encounter Details +--------+ + + + + | Date | Type | Department | Care Team | Description | +--------+ + + + + | 06/30/ | Hospital | [facility] | | | | 1999 - | Encounter | MED CTR GENERIC PSY | | | | | | CONV DEPT [address] | | | | 07/05/ | | [place], | | | | 1999 | | [place] [address] | | | | | | [phone] | | | +--------+ + + + [...] [address] | | | | | | [place] [address] | | | | | | [phone] | | | | | | | | +--------+ + + + + | 08/28/ | Office | Cardiology | Dora De La Torre | | | 2019 | Visit | | [address] | | | | | | [address] | | | | | | [place] [address] | | | | | | [phone] | | | | | | | | +--------+ + + + + documented as of this encounter Visit Diagnoses Not on filedocumented in this encounter"
--- OUTSIDE RECORDS SUMMARY | ~2020-05-22 | XMS | Encounter Summary ---
Demographics + + + | Address | [address] [facility] [address] | | | [place] [address] | + + + | Home Phone [...] [place] | | | | | [address] | | + + + + + Care Team Providers + +------+ + | Care Higher Level Teaching Assistant Name | Role | Phone | + +------+ + | Basim Bolanos MD | PCP | | + +------+ + Encounter Details +--------+ + + + + | Date | Type | Department | Care Team | Description | +--------+ + + + + | 03/30/ | Hospital | [facility] | Tyrese Neely MD | | | 2012 | Encounter | MED CTR MP INTRA OP | [address], [place] | | | | | [address] | [address] [place], [place] | | | | | [place], [place] | [address] | | | | | [address] | | | | | | [phone] | | | +--------+ + + + [...] + + + +---------+ + + | [place]-3 Fatty | Take 1,000 mg by | [...] this encounter Miscellaneous Notes Op Note - Tyrese Neely MD - 03/30/2013 12:10 [place] [address] Patient Name: CINDY ARNDT Provider: Tyrese Neely MD Unit #: [id number] Location: [facility] : 1955 Patient Name: Cindy Arndt Gender: F Procedure Date: 03/30/2013 12:10 PM Date of : 1955 Age: 57 Admit Type: Outpatient Room: Endo Room 1 Note Status: Finalized Attending MD: Tyrese Neely MD Procedure: Upper GI endoscopy Indications: Epigastric abdominal pain Providers: Tyrese Neely MD, Vanesa Anne RN, Yesenia Downing, Physical Science Teacher, Guillermo Ortiz MD (Anesthesia Staff) Referring MD: [...] physician, the nurse, the anesthesiologist and the ordnance technician. The procedure was verified in the [...] [address] | | | | | | [place] [address] | | | | | | [phone] | | | | | | | | +--------+ + + + + | 08/28/ | Office | Cardiology | Isacc De La Torre | | 2019 | Visit | | Vanessa, TRANSITION NURSE [address] | | | | | | [address] | | | | | | [place] [address] | | | | | | [phone] | | | | | | | [...] + | [facility] | [address] | [place], [place] | [phone] | | [facility] | | [address] | | | - LABORATORY | | | | + + + + + | [facility] | [address] | [place], [place] | | | [facility] | | [address] | | | - LABORATORY [...] + | [facility] | [address] | [place] | [phone] | | [facility] | | [address] | | | - LABORATORY | | | | + + + + + | [facility] | [address] | [place], [place] | | | [facility] | | [id number] [place] [address] | | | - LABORATORY | | | | + + + + + documented in this encounter Visit Diagnoses Not on filedocumented in this encounter"
--- OUTSIDE RECORDS SUMMARY | ~2020-05-22 | XMS | Encounter Summary ---
Demographics + + + | Address | [address] | | | [place] [address] | + + + | Home Phone [...] [place] | | | | | [address] | | + + + + + Care Team Providers + +------+ + | Care Gluing Machine Operator Electronic Name | Role | Phone | + [...] + + | 08/09/ | Documentati | [facility] | Katharine Moncada, | Other (end of study) | | 2019 | on | CARDIOLOGY [place] | Technologist | | | | | [address] | | | | | | [place], [place] | | | | | | [address] | | | | | | [phone] | | | +--------+ + + + [...] Technologist - 08/09/2019 11:59 PM PDT Cardiac Metal Control Worker Date of Event Monitor: 08/09/19 Referring Physician: [...] [address] | | | | | | [place] [address] | | | | | | [phone] | | | | | | | | +--------+ + + + + | 08/28/ | Office | Cardiology | Dora De La Torre | | | 2019 | Visit | | [address] | | | | | | [address] | | | | | | [place] [address] | | | | | | [phone] | | | | | | | | +--------+ + + + + documented as of this encounter Visit Diagnoses Not on filedocumented in this encounter"
--- OUTSIDE RECORDS SUMMARY | ~2020-05-22 | XMS | Encounter Summary ---
Demographics + + + | Address | [address] [facility] [address] [address] | | | [place] [address] | + + + | Home Phone [...] [place] | | | | | [address] | | + + + + + Care Team Providers + +------+ + | Care Process Control Specialist Name | Role | Phone | [...] + + | 07/24/ | Telephone | [facility] | Ashley Chávez | Other (Patient is | | 2018 | | CARDIOLOGY [place] Ab[place], Group Counselor | worried about paying | | | | [address] | | for monitor. ) | | | | [place] | | | | | | [address] | | | | | | [phone] | | | +--------+ + + + [...] Miscellaneous Notes Telephone Encounter - Ashley Chávez, Group Counselor - 07/24/2019 11:13 AM Seferino t says [...] gals to see what can be done. JDW:VIOLIN MAKER HAND-AAMA. [facility] umented in this encounter Plan of [...] [address] | | | | | | [place] [address] | | | | | | [phone] | | | | | | | | +--------+ + + + + | 08/28/ | Office | Cardiology | Dora De La Torre | | | 2019 | Visit | | [address] | | | | | | [address] | | | | | | [facility] [place] [address] | | | | | | [phone] | | | | | | | | +--------+ + + + + documented as of this encounter Visit Diagnoses Not on filedocumented in this encounter"
--- OUTSIDE RECORDS SUMMARY | ~2020-05-22 | XMS | Encounter Summary ---
Demographics + + + | Address | [address] [facility] [address] | | | [place] [address] | + + + | Home Phone [...] [place], [place] | | | | | [address] | | + + + + + Care Team Providers + +------+ + | Care Varnish Maker Helper Name | Role | Phone | + +------+ + PCP | Unavailable | + +------+ + Encounter Details +--------+ + + + + | Date | Type | Department | Care Team | Description | +--------+ + + + + | 04/16/ | Hospital | [facility] | | | | 1997 | Encounter | MED CTR XRAY [address] | | | | | | [address] | | | | | | [place] [address] | | | | | | [phone] | | | +--------+ + + + [...] | | | | | [place] [address] | | | | | | [phone] | | | | | | | | +--------+ + + + + | 08/28/ | Office | Cardiology | Dora De La Torre | | | 2019 | Visit | | [address] | | | | | | [address] | | | | | | [place] [address] | | | | | | [phone] | | | | | | | | +--------+ + + + + documented as of this encounter Visit Diagnoses Not on filedocumented in this encounter"
--- OUTSIDE RECORDS SUMMARY | ~2020-05-22 | XMS | Encounter Summary ---
Demographics + + + | Address | [address] [address] | | | [place] [address] | + + + | Home Phone | | + + + | Preferred Language | Unknown | + + + | Marital Status | Single | + + + | Jew Affiliation | Unknown | + + + [...] [place] | | | | | [address] | | + + + + + Care Team Providers + +------+ + | Care Installation Drafter Name | Role | Phone | [...] | Transcriptions | + + | Interface, Biological Technical Officer In - 10/24/2006 3:09 AM PST | | [facility] | | [address] [place], [place] [address] [place] | | [facility] CitiesOPERATION RECORDMed Rec No.: [id number] Date: | | [...]
--- OUTSIDE RECORDS SUMMARY | ~2020-05-22 | XMS | Encounter Summary ---
Demographics + + + | Address | [address] [facility] | | | [place] [address] | + + + | Home Phone [...] [place] | | | | | [address] | | + + + + + Care Team Providers + +------+ + | Care Physician Allergist Immunologist Name | Role | Phone | [...] | 08/05/ | Telephone | [facility] | Frandy Teresa, | Other | | 2013 | | NEUROSURGERY [address] | DO [address] | | | | | [address] | [address] [place], [place] | | | | | [place], [place] | [id number] | | | | | [address] | | | | | | [phone] | | | +--------+ + + + [...] [address] | | | | | | [place] [address] | | | | | | [phone] | | | | | | | | +--------+ + + + + | 08/28/ | Office | Cardiology | Dora De La Torre | | | 2019 | Visit | | [address] | | | | | | [address] | | | | | | [place] [address] | | | | | | [phone] | | | | | | | | +--------+ + + + + documented as of this encounter Visit Diagnoses Not on filedocumented in this encounter"
--- OUTSIDE RECORDS SUMMARY | ~2020-05-22 | XMS | Encounter Summary ---
Demographics + + + | Address | [address] | | | [place] [address] | + + + | Home Phone [...] [place] | | | | | [address] | | + + + + + Care Team Providers + +------+ + | Care Steel Erector Name | Role | Phone | + +------+ + | Natalee Andersen NP | PCP | | + +------+ + Encounter Details +--------+ + + + + | Date | Type | Department | Care Team | Description | +--------+ + + + + | 06/26/ | Hospital | [facility] | Heather Cordero PT | | | 2014 | Encounter | MED CTR ACUTE | [address] | | | | | PHYSICAL THERAPY | [place] | | | | | [address] [place] | [address] | | | | | [place] [address] | | | | | | [phone] | | | +--------+ + + + [...] + + + +---------+ + + | [place]-3 Fatty | Take 1,000 mg by | [...] | | | | | [place] [address] | | | | | | [phone] | | | | | | | | +--------+ + + + + | 08/28/ | Office | Cardiology | Dora De La Torre | | | 2020 | Visit | | [address] M[address] | | | | | | [address] | | | | | | [place] [address] | | | | | | [phone] | | | | | | | | +--------+ + + + + documented as of this encounter Visit Diagnoses Not on filedocumented in this encounter"
--- OUTSIDE RECORDS SUMMARY | ~2020-05-22 | XMS | Encounter Summary ---
Demographics + + + | Address | [address] | | | [place] [address] | + + + | Home Phone [...] [place], [place] | | | | | [address] | | + + + + + Care Team Providers + +------+ + | Care Hoeing Row Boss Name | Role | Phone | + +------+ + PCP | Unavailable | + +------+ + Encounter Details +--------+ + + + + | Date | Type | Department | Care Team | Description | +--------+ + + + + | 01/06/ | Hospital | [facility] | | | | 1992 | Encounter | MED CTR LABORATORY | | | | | | [address] | | | | | | [place] | | | | | | [address] | | | | | | [phone] | | | +--------+ + + + [...] | | | | | [place] [address] | | | | | | [phone] | | | | | | | | +--------+ + + + + | 08/28/ | Office | Cardiology | Dora De La Torre | | | 2020 | Visit | | [address] | | | | | | [address] | | | | | | [place] [address] | | | | | | [phone] | | | | | | | | +--------+ + + + + documented as of this encounter Visit Diagnoses Not on filedocumented in this encounter"
--- OUTSIDE RECORDS SUMMARY | ~2020-05-22 | XMS | Encounter Summary ---
Demographics + + + | Address | [address] | | | [place] [address] | + + + | Home Phone [...] [place] | | | | | [address] | | + + + + + Care Team Providers + +------+ + | Care Optical Instrument Repairer Name | Role | Phone [...] + + | 08/14/ | Documentati | [facility] | Katharine Moncada, | Other (urgent | | 2019 | on | CARDIOLOGY [place] | Technologist | report) | | | | [address] | | | | | | [place] | | | | | | [address] | | | | | | [phone] | | | +--------+ + + + [...] | | | | | [place] [address] | | | | | | [phone] | | | | | | | | +--------+ + + + + | 08/28/ | Office | Cardiology | Dora De La Torre | | | 2020 | Visit | | [address] | | | | | | [address] | | | | | | [place] [address] | | | | | | [phone] | | | | | | | | +--------+ + + + + documented as of this encounter Visit Diagnoses Not on filedocumented in this encounter"
--- OUTSIDE RECORDS SUMMARY | ~2020-05-22 | XMS | Encounter Summary ---
Demographics + + + | Address | [address] [facility] [address] | | | [place] [address] | + + + | Home Phone [...] [place] | | | | | [address] | | + + + + + Care Team Providers + +------+ + | Care Passport Support Associate Name | Role | Phone [...] + + | 09/19/ | Telephone | [facility] | Ashley Chávez | Other (Patient | | 2018 | | CARDIOLOGY [place] Abad, Program Coordinator | calling to be seen | | | | [address] | | mirella. ) | | | | [place] | | | | | | [address] | | | | | | [phone] | | | +--------+ + + + [...] Miscellaneous Notes Telephone Encounter - Ashley Chávez Program Coordinator - 09/19/2019 10:41 AM PSTCall m cierra to patient to advise of Dr. Peterson's notes. Patient stated understanding. Patient asked why she couldn't be seen sooner, and I reminded her that we offered her a monae ner appointment that she turned down. Patient said thank you and hung up. CLAYTONW:MANGO. el ephone Encounter - Ashley Chávez Program Coordinator - 09/19/2019 10:40 AM PST Dora De La Torre, CAROLINE Peterson DO; Ashley Chávez Program Coordinator So just an FYI: we offered her appointment today at 3 pm but she turned it down, and said she would keep scheduled appt. el ephone Encounter - Ashley Chávez Program Coordinator - 09/19/2019 10:38 AM PST----- Mess age [...] she needs to be seen by a early breastfeeding care specialist. I have asked Lizeth to call her [...] help her pulse? Please advise. Thank you! [facility] rocky in this encounter Plan of Treatment [...] [address] | | | | | | [place] [address] | | | | | | [phone] | | | | | | | | +--------+ + + + + | 08/28/ | Office | Cardiology | Dora De La Torre | | | 2020 | Visit | | [address] | | | | | | [address] | | | | | | [place] [address] | | | | | | [phone] | | | | | | | | +--------+ + + + + documented as of this encounter Visit Diagnoses Not on filedocumented in this encounter"
--- OUTSIDE RECORDS SUMMARY | ~2020-05-22 | XMS | Encounter Summary ---
Demographics + + + | Address | [address] [facility] [address] | | | [place] [address] | + + + | Home Phone [...] [place] | | | | | [address] | | + + + + + Care Team Providers + +------+ + | Care Utility Mechanic Name | Role | Phone | [...] + + | 08/22/ | Documentati | [facility] | Katharine Moncada, | Other (urgent | | 2019 | on | CARDIOLOGY [place] | Technologist | report) | | | | [address] | | | | | | [place] | | | | | | [address] | | | | | | [phone] | | | +--------+ + + + [...] | | | | | [place] [address] | | | | | | [phone] | | | | | | | | +--------+ + + + + | 08/28/ | Office | Cardiology | Dora De La Torre | | | 2020 | Visit | | [address] | | | | | | [address] | | | | | | [place] [address] | | | | | | [phone] | | | | | | | | +--------+ + + + + documented as of this encounter Visit Diagnoses Not on filedocumented in this encounter"
--- OUTSIDE RECORDS SUMMARY | ~2020-05-22 | XMS | Encounter Summary ---
Demographics + + + | Address | [address] [facility] [address] | | | [place] [address] | + + + | Home Phone [...] [place], [place] | | | | | [address] | | + + + + + Care Team Providers + +------+ + | Care Taxicab Starter Name | Role | Phone | + +------+ + PCP | Unavailable | + +------+ + Encounter Details +--------+ + + + + | Date | Type | Department | Care Team | Description | +--------+ + + + + | 02/22/ | Hospital | [facility] | | | | 1996 | Encounter | MED CTR EMERGENCY | | | | | | [address] | | | | | | [place] | | | | | | [address] | | | | | | [phone] | | | +--------+ + + + [...] | | | | | [place] [address] | | | | | | [phone] | | | | | | | | +--------+ + + + + | 08/28/ | Office | Cardiology | Dora De La Torre | | | 2020 | Visit | | [address] | | | | | | [address] | | | | | | [place] [address] | | | | | | [phone] | | | | | | | | +--------+ + + + + documented as of this encounter Visit Diagnoses Not on filedocumented in this encounter"
--- OUTSIDE RECORDS SUMMARY | ~2020-05-22 | XMS | Clinical Summary ---
Demographics + + + | Address | [address] [facility] [address] | | | [place] [address] | + + + | Home Phone [...] [place] | | | | | [address] | | + + + + + Care Team Providers + +------+ + | Care Crocheter Hand Name | Role | Phone | + +------+ + PCP | Unavailable | + +------+ + Source Comments EDWARD is fully live on both [facility] Ambulatory and [facility] InPatient.[facility] Allergies Not on File Medications [...] | [facility] | xxxxxxxxxx | 02/22/20 | [phone] | [address] | [facility] | | | RE A & | | 15-Pre | 1 | [address] | [address] | | | [address] | | sent | | [place] | | | | | | | | [address] | | + +--------+ +--------+ + +--------+ + +--------+ +--------+ + + | Guarantor Name | Accoun | Relation to | Date | Phone | Billing Address | | | t Type | Patient | of | | | | | | | | | | + +--------+ +--------+ + + | CINDY ARNDT | Person | Self | [birth year] | [address] | | | al/Fam | | 1955 | [phone] | [address] [place] | | | [place] | | | 5 (Home) | [address] | + +--------+ +--------+ + +"
--- OUTSIDE RECORDS SUMMARY | ~2020-05-22 | XMS | Encounter Summary ---
Demographics + + + | Address | [address] | | | [place] [address] | + + + | Home Phone [...] [place], [place] | | | | | [address] | | + + + + + Care Team Providers + +------+ + | Care Foundry Supervisor Name | Role | Phone | + +------+ + PCP | Unavailable | + +------+ + Encounter Details +--------+ + + + + | Date | Type | Department | Care Team | Description | +--------+ + + + + | 05/23/ | Hospital | [facility] | | | | 1991 | Encounter | MED CTR XRAY [address] | | | | | | [address] | | | | | | [place] [address] | | | | | | [phone] | | | +--------+ + + + [...] | | | | | [place] [address] | | | | | | [phone] | | | | | | | | +--------+ + + + + | 08/28/ | Office | Cardiology | Dora De La Torre | | | 2019 | Visit | | [address] | | | | | | [address] | | | | | | [place] [address] | | | | | | [phone] | | | | | | | | +--------+ + + + + documented as of this encounter Visit Diagnoses Not on filedocumented in this encounter"
--- OUTSIDE RECORDS SUMMARY | ~2020-05-22 | XMS | Encounter Summary ---
Demographics + + + | Address | [address] | | | [place] [address] | + + + | Home Phone [...] [place] | | | | | [address] | | + + + + + Care Team Providers + +------+ + | Care Electron Beam Photo Mask Technician Name | Role | Phone | [...] + | 07/29/ | Telephone | [facility] | Frandy Cagle, | Other (multiple | | 2013 | | NEUROSURGERY [address] | DO [address] | questions) | | | | [facility] | [address] [place], [place] | | | | | [place], [place] | [id number] | | | | | [address] | | | | | | [phone] | | | +--------+ + + + [...] and I might get a repeat MRI. [place] ordered. Thanks. ddendum Note - Shayne Aragon [...] - 07/29/2014 11:19 AM PDTCall [facility] fur ther information. She [...] refill be mailed to her for her [place] 10/325mg which was given to her on [...] | | | | | [place] [address] | | | | | | [phone] | | | | | | | | +--------+ + + + + | 08/28/ | Office | Cardiology | Dora De La Torre | | | 2019 | Visit | | [address] | | | | | | [address] | | | | | | [place] [address] | | | | | | [phone] | | | | | | | | +--------+ + + + + documented as of this encounter Visit Diagnoses Not on filedocumented in this encounter"
--- OUTSIDE RECORDS SUMMARY | ~2020-05-22 | XMS | Encounter Summary ---
Demographics + + + | Address | [address] | | | [place] [address] | + + + | Home Phone [...] [place] | | | | | [address] | | + + + + + Care Team Providers + +------+ + | Care Retail Event Coordinator Name | Role | Phone | [...] + + | 09/10/ | Documentati | [facility] | Katharine Mnocada, | Other (urgent | | 2019 | on | CARDIOLOGY [place] | Technologist | report) | | | | [address] | | | | | | [place] | | | | | | [address] | | | | | | [phone] | | | +--------+ + + + [...] | | | | | [place] [address] | | | | | | [phone] | | | | | | | | +--------+ + + + + | 08/28/ | Office | Cardiology | Dora De La Torre | | | 2020 | Visit | | [address] | | | | | | [address] | | | | | | [place] [address] | | | | | | [phone] | | | | | | | | +--------+ + + + + documented as of this encounter Visit Diagnoses Not on filedocumented in this encounter"
--- OUTSIDE RECORDS SUMMARY | ~2020-05-22 | XMS | Encounter Summary ---
Demographics + + + | Address | [address] | | | [place] [address] | + + + | Home Phone [...] [place], [place] | | | | | [address] | | + + + + + Care Team Providers + +------+ + | Care Substation Manager Name | Role | Phone | + +------+ + PCP | Unavailable | + +------+ + Encounter Details +--------+ + + + + | Date | Type | Department | Care Team | Description | +--------+ + + + + | 09/10/ | Hospital | [facility] | | | | 1992 | Encounter | MED CTR LABORATORY | | | | | | [address] | | | | | | [place] | | | | | | [address] | | | | | | [phone] | | | +--------+ + + + [...] | | | | | [place] [address] | | | | | | [phone] | | | | | | | | +--------+ + + + + | 08/28/ | Office | Cardiology | Dora De La Torre | | | 2020 | Visit | | [address] | | | | | | [address] | | | | | | [place] [address] | | | | | | [phone] | | | | | | | | +--------+ + + + + documented as of this encounter Visit Diagnoses Not on filedocumented in this encounter"
--- OUTSIDE RECORDS SUMMARY | ~2020-05-22 | XMS | Encounter Summary ---
Demographics + + + | Address | [address] | | | [place] [address] | + + + | Home Phone [...] [place], [place] | | | | | [address] | | + + + + + Care Team Providers + +------+ + | Care Lining Marker Name | Role | Phone | + +------+ + PCP | Unavailable | + +------+ + Encounter Details +--------+ + + + + | Date | Type | Department | Care Team | Description | +--------+ + + + + | 02/02/ | Hospital | [facility] | | | | 1997 | Encounter | MED CTR EMERGENCY | | | | | | [address] | | | | | | [place] | | | | | | [address] | | | | | | [phone] | | | +--------+ + + + [...] | | | | | [place] [address] | | | | | | [phone] | | | | | | | | +--------+ + + + + | 08/28/ | Office | Cardiology | Dora De La Torre | | | 2020 | Visit | | [address] | | | | | | [address] | | | | | | [place] [address] | | | | | | [phone] | | | | | | | | +--------+ + + + + documented as of this encounter Visit Diagnoses Not on filedocumented in this encounter"
--- OUTSIDE RECORDS SUMMARY | ~2020-05-22 | XMS | Encounter Summary ---
Demographics + + + | Address | [address] | | | [place] [address] | + + + | Home Phone [...] [place] | | | | | [address] | | + + + + + Care Team Providers + +------+ + | Care Community Center Director Name | Role | Phone | [...] + + | 09/10/ | Documentati | [facility] | Katharine Moncada, | Other (urgent | | 2019 | on | CARDIOLOGY [place] | Technologist | report) | | | | [address] | | | | | | [place] | | | | | | [address] | | | | | | [phone] | | | +--------+ + + + [...] | | | | | [place] [address] | | | | | | [phone] | | | | | | | | +--------+ + + + + | 08/28/ | Office | Cardiology | Dora De La Torre | | | 2020 | Visit | | [address] | | | | | | [address] | | | | | | [place] [address] | | | | | | [phone] | | | | | | | | +--------+ + + + + documented as of this encounter Visit Diagnoses Not on filedocumented in this encounter"
--- OUTSIDE RECORDS SUMMARY | ~2020-05-22 | XMS | Encounter Summary ---
Demographics + + + | Address | [address] | | | [place] [address] | + + + | Home Phone [...] [place] | | | | | [address] | | + + + + + Care Team Providers + +------+ + | Care Nanny Babysitter Name | Role | Phone | [...] + + | 06/28/ | Telephone | [facility] | Ashley Chávez | Other (Patient | | 2018 | | CARDIOLOGY [place] Abad, De Icer Installer | called to cancel her | | | | [address] | | appointment) | | | | [place] | | | | | | [address] | | | | | | [phone] | | | +--------+ + + + [...] Miscellaneous Notes Telephone Encounter - Ashley Chávez, De Icer Installer - 06/28/2019 2:12 PM PDTPatigutierrez t said that she already got the result for her ECHO, so she decided to cancel her FU with Dr Peterson. I asked patient if she wanted to reschedule for another time, and she said she wants to FU as needed. I went ahead and canceled her appointment. BRODY[facility]AMA. [facility] this encounter Plan of Treatment [...] [address] | | | | | | [place] [address] | | | | | | [phone] | | | | | | | | +--------+ + + + + | 08/28/ | Office | Cardiology | Dora De La Torre | | | 2019 | Visit | | [address] | | | | | | [address] | | | | | | [place] [address] | | | | | | [phone] | | | | | | | | +--------+ + + + + documented as of this encounter Visit Diagnoses Not on filedocumented in this encounter"
--- OUTSIDE RECORDS SUMMARY | ~2020-05-22 | XMS | Encounter Summary ---
Demographics + + + | Address | [address] | | | [place] [address] | + + + | Home Phone [...] [place] | | | | | [address] | | + + + + + Care Team Providers + +------+ + | Care Greens Tier Name | Role | Phone | [...] | | | spondylolist | | [address] | | | | | [place]sis | | [place], | | | | | Spinal | | [place] [address] | | | | | stenosis, | | Phone: | | | | | lumbar | | [phone] | | | | | region, | | Fax: | | | | | without | | [phone] | | | | | neurogenic | [...] + | 07/02/ | Surgery | [facility] | Frandy Teresa, | MIS L5-S1 | | 2013 | | MED CTR OR INTRA OP | DO [address] | TRANSFORAMINAL | | | | [address] | [address] [place], [place] | LUMBAR INTERBODY | | | | [place] | [id number] | FUSION | | | | [address] | | | | | | [phone] | | | +--------+---------+ + + + [...] might be different fro m the original. [facility] DISCHARGE SUMMARY PATIENT NAME: Cindy [...] Take 15 mg by mouth nightl y. Marquette-3 Fatty Acids (FISH OIL CONCENTRATE) 1000 MG [...] + + + +---------+ + + | Marquette-3 Fatty | Take 1,000 mg by | [...] Lynn PA-C - 07/04/2014 7:43 AM PDT [facility] PROGRESS NOTE Pt. Name/Age/: Cindy Arndt 58 y.o. 1955 Med. Record Number: [id number] Date of admission: 07/02/2014 Subjective: The patient [...] home medications. D/C plan: Home tomorrow with [facility]. D/c mari drain and riley cath today. D/c data deliverables manager. Patient Active Problem List Diagnosis LUMBAR [...] by: Chris Nicole, 07/04/2014 7:45 [facility] Chris Lynn PA-C - 07/03/2014 7:13 AM PDT . [facility] PROGRESS NOTE Pt. Name/Age/: Cindy Arndt 58 y.o. 1955 Med. Record Number: [id number] Date of admission: 07/02/2014 Subjective: The patient [...] Electronically signed by: Chris Nicole, 07/03/2014 7:13 [facility] on Smith, KRIS - 07/03/2014 6:50 AM [...] signed by: Frandy Teresa DO, 07/02/2014 11:15 [facility]ronically signed by Frandy Teresa DO at 06/2014 11:15 AM PDTDreyFrandy tim DO - 07/02/2014 11:15 AM [id number], [address] [place] [id number] FAX: NEUROSURGERY HISTORY AND PHYSICAL EXAMINATION CHIEF [...] Take 15 mg by mouth nigh tlgaston. Marquette-3 Fatty Acids (FISH OIL CONCENTRATE) 1000 MG [...] has no apparent deficits with short or buttermaker continuous churn memory. CRANIAL NERVES: II: Acuity is intact. [...] Intrinsics 5 5 Ulnar Intrinsics 5 5 Orientation & Mobility Specialist Strength 5 5 Hip Flexion 5 [...] and benefits to surgical intervention with Ms. Anrdt in clinic. These risks included but were [...] in this en counter Procedure Notes [facility] - 07/12/2014 12:00 AM PDT 14 1[facility]45 [facility] - 07/04/2014 12:00 AM PDT [facility] - 07/02/2014 12:00 AM PDT documented in this encounter Miscellaneous Notes Plan of Care - [facility] - 07/12/2014 12:00 AM PDT iscellaneous - [facility] 07/12/2014 12:00 AM PDTElec tronically signed by Mariah Schulte at 07/12/2014 1:45 PM PDTMiscellaneous - [facility] - 07/12/2014 12:00 AM PDT i scellaneous - [facility] - 07/12/2014 12:00 AM PDT lan [...] and I will be going to a care home as I have 16 steps to my [...] TBD) Equipment Recommendations: tub bench;hand held shower head;distribution manager;comfort height toilet ( pt. has all necessary [...] Nicole PA-C Consultants: none PCP: Natalee Andersen [facility] transferring to: [facility] Provider after transfer: PCP and Dr. Frandy Teresa CODE STATUS: [x] Attempt CPR [] Do not resuscitate If patient is pulseless and not breathing, RN/MANAGER CASINO may pronounce . Advanced Directives included: [] [...] for this patient. Diet: [] As tolerated REGISTRATION SCHEDULING SPECIALIST may upgrade or downgrade diet as condition Indicates. [x] RN may downgrade diet as indicated. Type: [] Continue current diet of: Diet and Supplements Diet DIET CONSISTENT CARBOHYDRATE Number of Occurrences: -1 Days [] Other: Consistency/Precautions: [] Whole [] Thin Liquids [] Cut-up [] [place] Thick [] Advanced Chopped [] Honey Thickened [] Chopped [] Advanced Ground [] 1:1 feedings [] Ground/Pureed [] Other: Tube Feedings: [] PEG [] GT [] JT [] NGT [] Formula type: (Esol Teacher may change/substitute if indicated). [] Continuous Rate: [...] & Management for: ____same as above [] REGISTRATION SCHEDULING SPECIALIST Evaluation &Management for: [] Other: Wound/Skin Care: [...] tablet 1-2 tablets Take 1-2 tablets by [facility] every 4 hours as needed for [...] Take 15 mg by mouth ni ghtly. Marquette-3 Fatty Acids (FISH OIL CONCENTRATE) 1000 MG [...] Chris Nicole PA-C, certify that post hospital custodial care is medically nec essary on a continuing basis for any of the conditions for which he/she received care during this hospitalization. Check one: [x] Skilled [] Intermediate Additional Orders/Instructions: Physician's signature:__Chris Nicole PA-C 07/05/2014 13:18 [facility] USE ONLY: [] Admitting orders [...] tolerate progressive walking and doing stairs [facility] hospital stay due to multiple pain c/o. Attempted to see pt. 1145, however had just rec eived pain medication and requested PT return, SPL 9/10. At 1205 pt contacted PT for assist OOB due to left LE spasms and need for position change. Sitting at EOB on arrival, QUANTITATIVE ANALYST DEVELOPER pres ent. Pt. donned LSO brace, stood [...] of endurance. When patient is walking in [facility] with a regular FWW she has to stop frequently and states she feels very weak, like sh e may fall. Patient lives alone. Outpatient prescriptions are filled at [facility] in [facility]. Electronically signed by: Franca Narvaez RN 07/05/2014 10:43 lan of Adilene Layne Rivers - 07/05/2014 10:39 AM PDTFaxed referral to Gabriela Stout and [facility]idia Tr[facility]. [place] : [id number] and [place]: [id number] Electronically signed by: Layne Collado 07/05/2014 10:40 Received a call from [facility]. They can accept Cindy. Received a call from [facility] and they can't accept Cindy. [facility]anna from [facility] called and they don't have any beds at this time Electronically signed by: Layne Collado 07/05/2014 12:22 Started the SNF packet. Electronically signed by: Layne Collado 07/05/2014 12:56 lan of [facility] Sadnhya Benites RN - 07/05/2014 5:14 AM PDTProblem: [...] TBD) Equipment Recommendations: tub bench;hand held shower head;distribution manager;comfort height toilet ( pt. has all necessary equipment) Planned Interventions: ADL retraining;transfer training Patient Status/Goals Reflects last filed data of patient status; may be from multiple contributors. Grooming: Status: did not occur today Assist: Utilizes: STG: Status: New Goal:modified independent LTG: Status: Goal: UE Dressing: Status: SBA Assist: Utilizes: STG: Status: Goal: LTG: Status: Goal: LE Dressing: Status: SBA Utilizes: distribution manager STG: Status: New Goal: modified independent LTG: [...] bed mobil ity. Pt has been using ZOO KEEPER and pain pills during the night. Zofran [...] by herself in a small apartment in [place]. Patient states she has her apartment set [...] to come from [facility] in [place]. She states the Said she might benefit fr Home Health upon discharge. She would like me to contact [facility] to giv e them a heads up. I called and spoke to Summer at [facility] , told her patients PCP i s [...] Pt. resting in bed on arrival, used ZOO KEEPER x 2 during session. SPL 5/10. Pt. hoping to urinate ctc operator to straight cath. Sidelying to sit [...] TBD) Equipment Recommendations: tub bench;hand held shower head;distribution manager;comfort height toilet ( pt. has all necessary [...] & Review . Outcome: Progressing Pt using ZOO KEEPER and PO pain pills, c/o numbness on [...] with minimal amount of drainage. lan of Sipke Woodward ra, RN - 07/03/2014 4:25 AM [...] and on a continuous oximeter for her ZOO KEEPER. She was unable to do her IS because o f the medications. She has the IS at bedside with a goal of 2400. She did not require additi onal respiratory care throughout the evening. p Note - Frandy Teresa, DO - 07/02/2014 2:25 PM PDTDATE: 07/02/2014 SURGEON: Frandy Teresa MD. CONSTRUCTION MANAGER: ZANE Oh PREOPERATIVE DIAGNOSES 1. Spondylolisthesis, L5-S1. [...] x 26 mm Capstone PEEK cage from [employer] was chosen. It was filled with Infus [...] Note Cindy Arndt 58 y.o. female 1955 [id number] Proc. Date 07/02/2014 Preop Dx Spondylolisthesis L5-S1 Postop Dx same Procedure Procedure(s):MIS L5-S1 TRANSFORAMINAL LUMBAR INTERBODY FUSION Anesthesia General Surgeon Frandy Teresa DO Revival Clerk ZANE Oh EBL 100 mL Findings Findings consistent with scheduled procedure. No other abnormalities found. Complications none Specimens * No specimens in log * Drains Electronically signed by: Frandy Teresa DO 07/02/2014 14:22 [facility] documented in this en counter Plan of [...] [address] | | | | | | [place] [address] | | | | | | [phone] | | | | | | | | +--------+ + + + + | 08/28/ | Office | Cardiology | Dora De La Torre | | | 2019 | Visit | | [address] | | | | | | [address] | | | | | | [place] [address] | | | | | | [phone] | | | | | | | [...] + | [facility] | [address] | [place], [place] | [phone] | | [facility] | | [address] | | | - LABORATORY | | | | + + + + + | [facility] | [address] | [place] | | | [facility] | | [address] [place] [address] | | | - LABORATORY | | [...] + | [facility] | [address] | [place] | [phone] | | [facility] | | [address] | | | - LABORATORY | | | | + + + + + | [facility] | [address] | [place] | | | [facility] | | [address], [facility] | | | - LABORATORY [...] | | POC | | | [facility] | | | | | [...] + | [facility] | [address] | [place] | [phone] | | [facility] | | [address] | | | - LABORATORY | | | | + + + + + | [facility] | [address] | [place], [place] | | | [facility] | | [address] | | | - [...] + | [facility] | [address] | [place], [place] | [phone] | | [facility] | | [address] | | | - LABORATORY | | | | + + + + + | [facility] | [address] | [place], [place] | | | [facility] | | [address], [facility] | | | - LABORATORY [...] [address] | [place] | [phone] | | [facility] | | [address] | | | - LABORATORY | | | | + + + + + | [facility] | [address] | [place] | | | [facility] | | [address], [facility] | | | - LABORATORY [...] + | [facility] | [address] | [place] | [phone] | | [facility] | | [address] | | | - LABORATORY | | | | + + + + + | [facility] | [address] | [place], [place] | | | [facility] | | [address], [facility] | | | - LABORATORY [...] [address] | [place] | [phone] | | [facility] | | [address] | | | - LABORATORY | | | | + + + + + | [facility] | [address] | [place] | | | [facility] | | [address] | | | - [...] + | [facility] | [address] | [place] | [phone] | | [facility] | | [address] | | | - LABORATORY | | | | + + + + + | [facility] | [address] | [place] | | | [facility] | | [address], [facility] | | | - LABORATORY [...] + | [facility] | [address] | [place] | [phone] | | [facility] | | [address] | | | - LABORATORY | | | | + + + + + | [facility] | [address] | [place], [place] | | | [facility] | | [address] | | | [...] | of hardware for posterior fusion from [id number] S1 with interbody hardware at L5-S1. The [...] + | MISCELLANEOUS LAB | | | [phone] | + +---------+ + + | MISCELANIOUS LAB | | | [phone] | + +---------+ + + POC Glucose [...] + | [facility] | [address] | [place], [place] | [phone] | | [facility] | | [address] | | | - LABORATORY | | | | + + + + + | [facility] | [address] | [place] | | | [facility] | | [address] [place] [address] | | | - LABORATORY | | [...] + | [facility] | [address] | [place] | [phone] | | [facility] | | [address] | | | - LABORATORY | | | | + + + + + | [facility] | [address] | [place] | | | [facility] | | [address], [facility] | | | - LABORATORY [...] + | [facility] | [address] | [place] | [phone] | | [facility] | | [address] | | | - LABORATORY | | | | + + + + + | [facility] | [address] | [place] | | | [facility] | | [address], [facility] | | | - LABORATORY [...] + | [facility] | [address] | [place], [place] | [phone] | | [facility] | | [address] | | | - LABORATORY | | | | + + + + + | [facility] | [address] | [place], [place] | | | [facility] | | [address] | | | - [...] [address] | [place] | [phone] | | [facility] | | [address] | | | - LABORATORY | | | | + + + + + | [facility] | [address] | [place] | | | [facility] | | [address], [facility] | | | - LABORATORY [...] St | [place] | | | [facility] | | [address] | | | - BLOOD BANK | [...] mLs | | Surgical | | 1:200,000 0.25-1:415075 % | | 14 12:42 | | [...]
--- OUTSIDE RECORDS SUMMARY | ~2020-05-22 | XMS | Encounter Summary ---
Demographics + + + | Address | [address] | | | [place] [address] | + + + | Home Phone [...] [place] | | | | | [address] | | + + + + + Care Team Providers + +------+ + | Care On Air Director Name | Role | Phone | [...] | | | | | mellitus, | [address] | [place] | | | | | controlled | Phone: | [address] | | | | | (HCC) | [phone] | Phone: | | | | | History of | Fax: | [phone] | | | | | gastric | [phone] | Fax: | | | | | restrictive | | [phone] | | | | | surgery | [...] | Required | | hypertension | [address] [facility] | | | | | Lumbar | AVE [place] | [address] | | | | | radiculopath | [place], [place] | AVE | | | | | y Type 2 | [address] | [place] | | | | | diabetes | Phone: | [phone] | | | | | mellitus, | [phone] | Phone: | | | | | controlled | Fax: | [phone] | | | | | (HCC) | [phone] | Fax: | | | | | Obesity, | | [phone] | | | | | Class III, [...] | | FOR[facility]ATO & Katharine BUCIO in [place]. | + + + | Other | [...] + + | 03/06/ | Office | [facility] | Katharine Cardona PA-C | Hypothyroidism due | | 2014 | Visit | MEDICINE [address] | to acquired atrophy | | | | [address] [place] [address], | [place] [address] | of thyroid (Primary | | | | [place] [address] | [phone] | Dx); Essential | | | | [phone] | | hypertension; Iron | | | [...] | | | | | ([facility]); Environmental | | | | | | [...] | | | | obesity) ([facility]); | | | | | | Type 2 diabetes | | | | | | mellitus, controlled | | | | | | ([facility]); Preventative | | | | | | [...] t be different from the original. Ask [facility] if they think it might be helpful [...] Cont your meds as prescribed. F/U with [facility] as scheduled Neuropathy Continue gabapentin. May consider increase if pain is not controlled. May benefit from switching from Paxil to one of the SNRIs or TCAs for analgesic effects, ho manju, she is doing so well on her current regimen it may not be worth making any changes an d find alternate ways to deal with the pain. Would be worth discussing with [facility] Psych Back Pain Will refer to water therapy (aqua fitness) at [facility] as request ed. ROGERS [...] 4. Schizoaffective disorder, bipolar type ([facility]) 5. Neuropathy Vitamin B-12 6. BACK PAIN, LUMBAR, WITH RADICULOPATHY Ambulatory referral to Physical Therapy 7. ROGERS on CPAP 8. Stroke ([facility]) 9. Environmental and seasonal allergies fluticasone (FLONASE) 50 mcg/nasal spray 10. Gastroesophageal reflux disease without esophagitis dexlansoprazole (DEXILANT) 60 mg D R capsule 11. History of gastric restrictive surgery Vitamin D, 25-Hydroxy Nutrition Services - External - AMB Referral 12. Obesity, Class III, BMI 40-49.9 (morbid obesity) ([facility]) Ambulatory referral to Physical Therapy Nutrition Services - External - AMB Referral 13. Type 2 diabetes mellitus, controlled ([facility]) Ambulatory referral to Physical Therapy Nutrition Services [...] Cont your meds as prescribed. [facility] Neuropathy Continue gabapentin. [...] the pain. Would be worth discussing with [facility] professional. Back Pain Will refer to water therapy (aqua fitness) at [facility] as request ed. Cont home [...] plan. The above note was dictated using Photo[employer] voice recognition software. It may have not been proofread in entirety. Minor errors in grammar may occur. CHIEF COMPLAINT Chief Complaint Patient presents with Establish Care Presents to establish care. Former patient of [facility] in [place]. Other Possible stroke January 2015. Is now seeing Dr. Newman, changed to Plavix 02-27-15 from [facility]. Diabetes NIDDM. Checks blood sugars almost [...] auditory, at 36. 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 She is now very well controlled on Saphris, Depakote, and Paxi l. She is followed by [facility] in [place]. She has DM2 that is well controlled [...] Laterality: N/A; Surgeon: Frandy castellanos DO; Location: [facility] MA[facility] OR SOCIAL HISTORY History Social [...] mg by mouth Daily. Cholecalciferol (VITAMIN D-3) 82882 units CAPS Oral Take 50,000 Units by [...] Oral Take 10 mg by mouth nightly. [place]-3 Fatty Acids (FISH OIL CONCENTRATE) 1000 MG [...] [address] | | | | | | [place] [address] | | | | | | [phone] | | | | | | | | +--------+ + + + + | 08/28/ | Office | Cardiology | Dora De La Torre | | | 2019 | Visit | | [address] | | | | | | [address] | | | | | | [place] [address] | | | | | | [phone] | | | | | | | [...] | | | | controlled ([facility]) | | | | | | Obesity, Class III, | | | | | | BMI 40-49.9 (morbid | | | | | | obesity) ([facility]) | | + + +--------+ + + [...] | | | | obesity) ([facility]) | | + + +--------+ + + [...] | non- | FILTRATION | mL/min/1.73m2 | [facility] | | | Vietnamese | RATE,ESTIMATED | | MEDICAL | | | | mL/min/1.65f1Wiry than | | CENTER - | | [...] [address] | [place] | [phone] | | [facility] | | [address] | | | - LABORATORY | | [...]
--- OUTSIDE RECORDS SUMMARY | ~2020-05-22 | XMS | Encounter Summary ---
Demographics + + + | Address | [address] | | | [place] [address] | + + + | Home Phone [...] [place] | | | | | [address] | | + + + + + Care Team Providers + +------+ + | Care Copy Chaser Name | Role | Phone | + [...] + + | 05/08/ | Telephone | [facility] | Dora De La Torre | Testing | | 2020 | | CARDIOLOGY [place] | [address] | | | | | [address] | [address] | | | | | [address] | [place] [address] | | | | | [place] | [phone] | | | | | [address] | | | | | | [phone] | | | +--------+ + + + [...] [address] | | | | | | [place] [address] | | | | | | [phone] | | | | | | | | +--------+ + + + + | 08/28/ | Office | Cardiology | Dora De La Torre | | | 2019 | Visit | | [address] | | | | | | [address] | | | | | | [place] [address] | | | | | | [phone] | | | | | | | | +--------+ + + + + documented as of this encounter Visit Diagnoses Not on filedocumented in this encounter"
--- OUTSIDE RECORDS SUMMARY | ~2020-05-22 | XMS | Encounter Summary ---
Demographics + + + | Address | [address] | | | [place] [address] | + + + | Home Phone [...] [place] | | | | | [address] | | + + + + + Care Team Providers + +------+ + | Care Metal Sprayer Name | Role | Phone | [...] [place] | | | | | | [address] | | | | | | [phone] | | | +--------+ + + + [...] | | | | | [place] [address] | | | | | | [phone] | | | | | | | | +--------+ + + + + | 08/28/ | Office | Cardiology | Dora De La Torre | | | 2020 | Visit | | [address] | | | | | | [address] | | | | | | [place] [address] | | | | | | [phone] | | | | | | | | +--------+ + + + + documented as of this encounter Visit Diagnoses Not on filedocumented in this encounter"
--- OUTSIDE RECORDS SUMMARY | ~2020-05-22 | XMS | Encounter Summary ---
Demographics + + + | Address | [address] | | | [place] [address] | + + + | Home Phone [...] [place], [place] | | | | | [address] | | + + + + + Care Team Providers + +------+ + | Care Assembler Radio And Electrical Name | Role | Phone | + +------+ + PCP | Unavailable | + +------+ + Encounter Details +--------+ + + + + | Date | Type | Department | Care Team | Description | +--------+ + + + + | 01/25/ | Hospital | [facility] | | | | 2002 | Encounter | MED CTR XRAY [address] | | | | | | [address] | | | | | | [place] [address] | | | | | | [phone] | | | +--------+ + + + [...] | | | | | [place] [address] | | | | | | [phone] | | | | | | | | +--------+ + + + + | 08/28/ | Office | Cardiology | Dora De La Torre | | | 2019 | Visit | | [address] | | | | | | [address] | | | | | | [place] [address] | | | | | | [phone] | | | | | | | | +--------+ + + + + documented as of this encounter Visit Diagnoses Not on filedocumented in this encounter"
--- OUTSIDE RECORDS SUMMARY | ~2020-05-22 | XMS | Encounter Summary ---
Demographics + + + | Address | [address] | | | [place] [address] | + + + | Home Phone [...] [place] | | | | | [address] | | + + + + + Care Team Providers + +------+ + | Care Demolition Hammer Operator Name | Role | Phone | [...] + + | 11/25/ | Telephone | [facility] | Frandy Teresa, | Medication Refill | | 2014 | | [address] | DO [address] | Assistance | | | | [address] [facility] [address] | [address] [place], [place] | | | | | [place], [place] | [id number] | | | | | [address] | | | | | | [phone] | | | +--------+ + + + [...] get a refill of her pain medication [place] 10-325 mg. I l et her know we are beyond the 90 days after her surgery and refills need to come from [facility]. She requests us to update her [...] | | | | | [place] [address] | | | | | | [phone] | | | | | | | | +--------+ + + + + | 08/28/ | Office | Cardiology | Dora De La Torre | | | 2019 | Visit | | [address] | | | | | | [address] | | | | | | [place] [address] | | | | | | [phone] | | | | | | | | +--------+ + + + + documented as of this encounter Visit Diagnoses Not on filedocumented in this encounter"
--- OUTSIDE RECORDS SUMMARY | ~2020-05-22 | XMS | Encounter Summary ---
Demographics + + + | Address | [address] | | | [place] [address] | + + + | Home Phone [...] [place] | | | | | [address] | | + + + + + Care Team Providers + +------+ + | Care Casing Splitter Name | Role | Phone | + [...] + + | 08/13/ | Documentati | [facility] | Katharine Moncada, | Other (urgent | | 2019 | on | CARDIOLOGY [place] | Technologist | report) | | | | [address] | | | | | | [place] | | | | | | [address] | | | | | | [phone] | | | +--------+ + + + [...] | | | | | [place] [address] | | | | | | [phone] | | | | | | | | +--------+ + + + + | 08/28/ | Office | Cardiology | Dora De La Torre | | | 2020 | Visit | | [address] | | | | | | [address] | | | | | | [place] [address] | | | | | | [phone] | | | | | | | | +--------+ + + + + documented as of this encounter Visit Diagnoses Not on filedocumented in this encounter"
--- OUTSIDE RECORDS SUMMARY | ~2020-05-22 | XMS | Encounter Summary ---
Demographics + + + | Address | [address] | | | [place] [address] | + + + | Home Phone [...] [place] | | | | | [address] | | + + + + + Care Team Providers + +------+ + | Care Venetian Blind Mechanic Name | Role | Phone | [...] + + | 07/10/ | Telephone | [facility] | Frandy Teresa, | Imaging Only (1 year | | 2014 | | NE[address] | DO [address] | x-ray ) | | | | [address] | [address] [place], [place] | | | | | [place], [place] | [address] | | | | | [address] | | | | | | [phone] | | | +--------+ + + + [...] [address] | | | | | | [place] [address] | | | | | | [phone] | | | | | | | | +--------+ + + + + | 08/28/ | Office | Cardiology | Dora De La Torre | | | 2019 | Visit | | [address] | | | | | | [address] | | | | | | [place] [address] | | | | | | [phone] | | | | | | | | +--------+ + + + + documented as of this encounter Visit Diagnoses Not on filedocumented in this encounter"
--- OUTSIDE RECORDS SUMMARY | ~2020-05-22 | XMS | Encounter Summary ---
Demographics + + + | Address | [address] | | | [place] [address] | + + + | Home Phone [...] [place] | | | | | [address] | | + + + + + Care Team Providers + +------+ + | Care Band Machine Operator Name | Role | Phone [...] + | 02/01/ | Telephone | [facility] | Frandy Teresa, | Imaging Only | | 2019 | | [address] | DO [address] | | | | | [address] | [address] [place], [place] | | | | | [place], [place] | [id number] | | | | | [address] | | | | | | [phone] | | | +--------+ + + + [...] [address] | | | | | | [facility] [place] [address] | | | | | | [phone] | | | | | | | | +--------+ + + + + | 08/28/ | Office | Cardiology | Dora De La Torre | | | 2020 | Visit | | [address] | | | | | | [address] | | | | | | [place] [address] | | | | | | [phone] | | | | | | | | +--------+ + + + + documented as of this encounter Visit Diagnoses Not on filedocumented in this encounter"
--- OUTSIDE RECORDS SUMMARY | ~2020-05-22 | XMS | Encounter Summary ---
Demographics + + + | Address | [address] | | | [place] [address] | + + + | Home Phone [...] [place] | | | | | [address] | | + + + + + Care Team Providers + +------+ + | Care Preschool Adviser Name | Role | Phone | + [...] + + | 06/27/ | Office | [facility] | Yecenia Richardson, | Hypertension, | | 2019 | Visit | CARDIOLOGY [place] | MD Nitin RODRIGUES | unspecified type | | | | [address] | [place], [place] | (Primary Dx); | | | | [address] [facility] | [address] | Bradycardia | | | | [place] | | | | | | [address] | | | | | | [phone] | | | +--------+---------+ + + + [...] urgent basis. Had an appointment today in [facility]. She has been feeling dizzy as [...] Take by mouth. Blood Glucose Monitoring Suppl (i-dispo.com VERIO FLEX SYSTEM) w/Device KIT by Does [...] mg by mouth Daily. Cholecalciferol (VITAMIN D-3) 64784 units CAPS Take 50,000 Units by mouth [...] tablet Take 10 mg by mouth nightly. [place]-3 Fatty Acids (FISH OIL CONCENTRATE) 1000 MG [...] [address] | | | | | | [place] [address] | | | | | | [phone] | | | | | | | | +--------+ + + + + | 08/28/ | Office | Cardiology | Dora De La Torre | | | 2019 | Visit | | [address] | | | | | | [address] | | | | | | [place] [address] | | | | | | [phone] | | | | | | | [...]
--- OUTSIDE RECORDS SUMMARY | ~2020-05-22 | XMS | Encounter Summary ---
Demographics + + + | Address | [address] | | | [place] [address] | + + + | Home Phone [...] [place] | | | | | [address] | | + + + + + Care Team Providers + +------+ + | Care Structural Manager Name | Role | Phone | [...] + + | 10/04/ | Office | [facility] | Desiree Peterson DO | ROGERS on CPAP (Primary | | 2019 | Visit | CARDIOLOGY [place] | [address] | Dx); Morbid obesity | | | | [address] | [place], [place] | (HCC); Benign | | | | [address] | [address] | essential HTN; | | | | [place], [place] | | Atrial fibrillation, | | | | [address] | | unspecified type | | | | [phone] | | [facility] | +--------+---------+ + + [...] + documented in this encounter Progress Notes Deisree Peterson, - 10/04/2019 11:40 AM PST [facility] Cardiology Cardiology Follow Up Note Reason [...] rtake in exercise. She recently got a Generate and has been walking him more regularly. [...] by mouth daily. Blood Glucose Monitoring Suppl ([facility] FLEX SYSTEM) w/Device KIT by Does not ap ply route. budesonide-formoterol (SYMBICORT) 160-4.5 MCG/ACT inhaler Inhale 2 puffs into the lungs 2 (two) times daily. Calcium Carbonate Antacid 1000 MG tablet Take 1,000 mg by mouth 3 (three) times daily. Cholecalciferol (VITAMIN D3) 16399 units CAPS Take by mouth once a [...] [address] | | | | | | [place] [address] | | | | | | [phone] | | | | | | | | +--------+ + + + + | 08/28/ | Office | Cardiology | Dora De La Torre | | | 2019 | Visit | | [address] | | | | | | [address] | | | | | | [place] [address] | | | | | | [phone] | | | | | | | [...]
--- OUTSIDE RECORDS SUMMARY | ~2020-05-22 | XMS | Encounter Summary ---
Demographics + + + | Address | [address] | | | [place] [address] | + + + | Home Phone [...] [place], [place] | | | | | [address] | | + + + + + Care Team Providers + +------+ + | Care Supervisor Sample Preparation Name | Role | Phone | + +------+ + PCP | Unavailable | + +------+ + Encounter Details +--------+ + + + + | Date | Type | Department | Care Team | Description | +--------+ + + + + | 12/27/ | Hospital | [facility] | | | | 1997 | Encounter | MED CTR EMERGENCY | | | | | | [address] | | | | | | [place] | | | | | | [address] | | | | | | [phone] | | | +--------+ + + + [...] | | | | | [place] [address] | | | | | | [phone] | | | | | | | | +--------+ + + + + | 08/28/ | Office | Cardiology | Dora De La Torre | | | 2020 | Visit | | [address] | | | | | | [address] | | | | | | [place] [address] | | | | | | [phone] | | | | | | | | +--------+ + + + + documented as of this encounter Visit Diagnoses Not on filedocumented in this encounter"
--- OUTSIDE RECORDS SUMMARY | ~2020-05-22 | XMS | Encounter Summary ---
Demographics + + + | Address | [address] [address] | | | [place] [address] | + + + | Home Phone [...] Author + + + | Author | [facility] | + + + | Organization | [facility] | + + + | Address | Unknown | + + + | Phone | Unavailable | + + + Support + + + + + | Name | Relationship | Address | Phone | + + + + + | Kelsy Bautista | ECON | [address] | | | | | [place] | | | | | [address] | | + + + + + Care Team Providers + +------+ + | Care Family Development Extension Specialist Name | Role | Phone [...] [id number] | | | | | | [place], [place] | | | | | | [address] | | | | | | [phone] | | | +--------+ + + + [...] + + + + + | [facility] | [address] | [place] [address] | | | PATHOLOGY | [address] [...] Re | | | | | | [id number] | | | | + + + + + + + + | Specimen | + + | | + + + + + + + | Performing | Address | City/State/Zipcode | Phone Number | | Organization | | | | + + + + + | [facility] | [address] | [place] [address] | | | PATHOLOGY | [address] [...] Re | | | | | | 3[address] | | | | + + + + + + + + | Specimen | + + | | + + + + + + + | Performing | Address | City/State/Zipcode | Phone Number | | Organization | | | | + + + + + | [facility] | [address] | [place] [address] | | | PATHOLOGY | [address] [...] Re | | | | | | [phone] | | | | + + + + + + + + | Specimen | + + | | + + + + + + + | Performing | Address | City/State/Zipcode | Phone Number | | Organization | | | | + + + + + | [facility] | [address] | [place] [address] | | | PATHOLOGY | [address] [...] Re | | | | | | [address] | | | | + + + + + + + + | Specimen | + + | | + + + + + + + | Performing | Address | City/State/Zipcode | Phone Number | | Organization | | | | + + + + + | [facility] | [address] | [place] [address] | | | PATHOLOGY | [address] | | | + + + + + documented in this encounter Visit Diagnoses Not on filedocumented in this encounter"
--- OUTSIDE RECORDS SUMMARY | ~2020-05-22 | XMS | Encounter Summary ---
Demographics + + + | Address | [address] | | | [place] [address] | + + + | Home Phone [...] [place], [place] | | | | | [address] | | + + + + + Care Team Providers + +------+ + | Care Document Management Consultant Name | Role | Phone | + +------+ + PCP | Unavailable | + +------+ + Encounter Details +--------+ + + + + | Date | Type | Department | Care Team | Description | +--------+ + + + + | 06/17/ | Hospital | [facility] | | | | 1991 - | Encounter | MED CTR GENERIC PSY | | | | | | CONV DEPT [address] | | | | 06/18/ | | [place], | | | | 1991 | | [place] [address] | | | | | | [phone] | | | +--------+ + + + [...] [address] | | | | | | [place] [address] | | | | | | [phone] | | | | | | | | +--------+ + + + + | 08/28/ | Office | Cardiology | Dora De La Torre | | | 2019 | Visit | | [address] | | | | | | [address] | | | | | | [place] [address] | | | | | | [phone] | | | | | | | | +--------+ + + + + documented as of this encounter Visit Diagnoses Not on filedocumented in this encounter"
--- OUTSIDE RECORDS SUMMARY | ~2020-05-22 | XMS | Encounter Summary ---
Demographics + + + | Address | [address] | | | [place] [address] | + + + | Home Phone [...] [place] | | | | | [address] | | + + + + + Care Team Providers + +------+ + | Care Stud Master/Mistress Name | Role | Phone | [...] + + | 08/21/ | Documentati | [facility] | Katharine Moncada, | Other (urgent | | 2019 | on | CARDIOLOGY [place] | Technologist | report) | | | | [address] | | | | | | [place] | | | | | | [address] | | | | | | [phone] | | | +--------+ + + + [...] | | | | | [place] [address] | | | | | | [phone] | | | | | | | | +--------+ + + + + | 08/28/ | Office | Cardiology | Dora De La Torre | | | 2020 | Visit | | [address] | | | | | | [address] | | | | | | [place] [address] | | | | | | [phone] | | | | | | | | +--------+ + + + + documented as of this encounter Visit Diagnoses Not on filedocumented in this encounter"
--- OUTSIDE RECORDS SUMMARY | ~2020-05-22 | XMS | Encounter Summary ---
Demographics + + + | Address | [address] | | | [place] [address] | + + + | Home Phone [...] [place] | | | | | [address] | | + + + + + Care Team Providers + +------+ + | Care Central Office Supervisor Name | Role | Phone [...] | Radiology | [facility] | [facility] | | | | | atrial | [address] | [address] | | | | | fibrillation | [address] [address] | [address] | | | | | History of | [address] | [place], [place] | | | | | stroke | [place], [place] | [address] | | | | | Sinus | [address] | Phone: | | | | | tachycardia | Phone: | [phone] | | | | | by | [phone] | Fax: | | | | | electrocardi | Fax: | [phone] | | | | | ogram New | [phone] | | | | | | onset [...] + + | 01/09/ | Office | [facility] | Roxannmiguel ángelDora | History of atrial | | 2020 | Visit | CARDIOLOGY [place] | [address]INE Mendez [address] | fibrillation | | | | [address] | [address] | (Primary Dx); Benign | | | | [address] | [place] [address] | essential HTN; | | | | [place], [place] | [phone] | History of | | | | [address] | | hypothyroidism; | | | | [phone] | | Stress | | | | [...] an urgent Echo to be done at [facility] to follow up on new left bundle [...] of fatigue and shortness of breath. Her [id number] VASC score is 4 (stroke, HTN, gender) [...] go back to volunteering at the local [employer], though this plan will need to be on hold with current epidemic restrictions . She reports after she lost 160 pounds with a gastric sleeve that she was retested for sle ep apnea 2 years ago, and told the results negative, but has not had CPAP for 3 years She has previously seen Dr. Garland in [place], and different sleep provider in [facility] when lived over there. She reports she [...] thirst or hunger. Psychiatric/Behavioral: Bipolar/Schizophrenia. Tx'd by TUBE Vaccines: Current on flu vaccine: 2019 Current on pneumonia vaccine:PPSV 23 05/29/2013 Habits/Social : Denies history of smoking. Denies EtOH use. Denies recreational or illici t drug use. Exercises sporadically. Lives in [place] . Outpatient Medications Prior to Visit Medication [...] by mouth nightly. Blood Glucose Monitoring Suppl ([employer] VERIO FLEX SYSTEM) w/Device KIT by Does [...] bundle bran ch block Rate 74 bpm, IL 204 ms, QRS 138 ms, QTC 488 ms, tracing personally reviewed by me and Dr. Peterson. compared to EKG performed in November, new left bundle branch block, lead III has lower voltage QRS also in aVL and aVF, and improved voltage to anterior leads and rate i s better controlled. LABS Labs: 12/26/2018: ( [facility])CMP: Sodium 139, potassium 4.2, chloride 99, BUN 10, creatinine 0. 7, BNP 28. CBC: WBC 7.8, hemoglobin 14.3, hematocrit 42.7, platelets 214 Labs: 09/28/2019:( [facility]) CBC: WBC 7.8, hemoglobin 14.9, hematocrit 43.8, platelets 221. C MP: Sodium 132, potassium 4.2, chloride 95, AST 76, ALT 76, alk phos 134 Labs: 10/11/2019:( [facility]) CBC: WBC 6.7, RBC 4.97, hemoglobin 15.2, hematocrit 44.7, platel ets 200. CMP: Glucose 385, BUN 7, creatinine 0.62, GFR 97, sodium 131, potassium 4.1, chlor kelby 95, albumin 4.3, total bilirubin 0.6, AST 75, ALT 73, alk phos 144. Thyroid: TSH 4.27 Labs: 10/12/2020:( [facility]) CBC: WBC 7, RBC 4.93, [...] and reviewed her EKG results with her tensioning machine operator, Dr. Peterson, who is in the cli vickie today, and the plan is to get an updated echo to evaluate her for any new wall motion ab normalities. If she has any wall motion abnormalities, she will need to have further evalua tion for ischemic heart disease in [place] such as a stress test or angiogram I reviewed her EKG with her, and discussed this plan with her. The Echo will be ordered on an urgent basis, is currently a restriction on all nonurgent testing at [facility] . She was agreeable to this plan [...] [address] | | | | | | [place] [address] | | | | | | [phone] | | | | | | | | +--------+ + + + + | 08/28/ | Office | Cardiology | Dora De La Torre | | | 2019 | Visit | | [address] | | | | | | [address] | | | | | | [place] [address] | | | | | | [phone] | | | | | | | [...] | | | | | | Yesenia ([id number]) on | | | | | | [...]
--- OUTSIDE RECORDS SUMMARY | ~2020-05-22 | XMS | Encounter Summary ---
Demographics + + + | Address | [address] | | | [place] [address] | + + + | Home Phone [...] [place] | | | | | [address] | | + + + + + Care Team Providers + +------+ + | Care Drupal Developer Name | Role | Phone | [...] + + | 02/05/ | Telephone | [facility] | Ashley Chávez | Other (Patient | | 2020 | | CARDIOLOGY [place]ad, Support Services Tech | ) | | | | [address] | | | | | | [place] | | | | | | [address] | | | | | | [phone] | | | +--------+ + + + [...] t week . elephone [employer]co Ashley Wong, Support Services Tech - 02/06/2020 2:53 PM PDTPatient states that [...] advise. Thank you! (sent to Dora Mendez) JDW:MANAGER [employer]. doc umented in this encounter Plan of [...] [address] | | | | | | [place] [address] | | | | | | [phone] | | | | | | | | +--------+ + + + + | 08/28/ | Office | Cardiology | Dora De La Torre | | | 2019 | Visit | | [address] | | | | | | [place] | | | | | | [facility] [place] [address] | | | | | | [phone] | | | | | | | | +--------+ + + + + documented as of this encounter Visit Diagnoses Not on filedocumented in this encounter
--- OUTSIDE RECORDS SUMMARY | ~2020-05-22 | XMS | Encounter Summary ---
Demographics + + + | Address | [address] | | | [place] [address] | + + + | Home Phone [...] [place] | | | | | [address] | | + + + + + Care Team Providers + +------+ + | Care Staff Nurse Anesthetist Name | Role | Phone | + [...] + | 02/13/ | Office | [facility] | Dora De La Torre | History of atrial | | 2020 | Visit | CARDIOLOGY [place] | [address] | fibrillation | | | | [address] | [place] | (Primary Dx); New | | | | [address] | [place] [address] | onset left bundle | | | | [place] | [phone] | branch block (LBBB); | | | | [address] | | Benign essential | | | | [phone] | | HTN; History of | | [...] | | | | | | obesity) (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 Her [id number] VASC score is 4 (stroke, HTN, gender) [...] She has previously seen Dr. Garland in [place], and different sleep provider in [facility] when lived over there. She [...] go back to volunteering at the local [employer], though this plan will need to be [...] thirst or hunger. Psychiatric/Behavioral: Bipolar/Schizophrenia. Tx'd by true[x] Media Vaccines: Current on flu vaccine: 2019 Current on pneumonia vaccine:PPSV 23 05/29/2013 Habits/Social : Denies history of smoking. Denies EtOH use. Denies recreational or illici t drug use. Exercises sporadically. Lives in [place] . Outpatient Medications Prior to Visit Medication [...] by mouth nightly. Blood Glucose Monitoring Suppl ([employer] VERIO FLEX SYSTEM) w/Device KIT by Does [...] discomfort, patient unable to walk on eriberto [id number]. Resting EKG normal sinus rhythm, arrhythmias ventricular [...] nonspecific ST-T wave abnormality rate 82 bpm, CT 176 ms, QRS 80 ms, QTC 446 ms tracing personally reviewed by me EK12/17/2019: Sinus tachycardia, nonspecific ST wave abnormalities, rate 105 bpm, CT 196 ms, QRS 74 ms, QTC 430 ms, tracing personally reviewed by me, and compared to EKG performed in February 2019, rate is less well-controlled EK01/10/2020 (metoprolol XL 50 mg twice daily. Normal sinus rhythm, new left bundle bran ch block Rate 74 bpm, CT 204 ms, QRS 138 ms, QTC 488 [...] bundle branch block. Ra te 105 bpm, CT 184 ms, QRS 144 ms, QTC 489 ms, tracing personally reviewed by me, and compar ed to EKG performed in December , rate is less well-controlled LABS Labs: 12/26/2018: ( [facility])CMP: Sodium 139, potassium 4.2, chloride 99, BUN 10, creatinine 0. 7, BNP 28. CBC: WBC 7.8, hemoglobin 14.3, hematocrit 42.7, platelets 214 Labs: 09/28/2019:( [facility]) CBC: WBC 7.8, hemoglobin 14.9, hematocrit 43.8, platelets 221. C MP: Sodium 132, potassium 4.2, chloride 95, AST 76, ALT 76, alk phos 134 Labs: 10/11/2019:( [facility]) CBC: WBC 6.7, RBC 4.97, hemoglobin 15.2, hematocrit 44.7, platel ets 200. CMP: Glucose 385, BUN 7, creatinine 0.62, GFR 97, sodium 131, potassium 4.1, chlor kelby 95, albumin 4.3, total bilirubin 0.6, AST 75, ALT 73, alk phos 144. Thyroid: TSH 4.27 Labs: 10/12/2020:( [facility]) CBC: WBC 7, RBC 4.93, hemoglobin 14.7, hematocrit 44.1, platele ts 186 normal UA CMP: Glucose 381, BUN 6, creatinine 0.63, GFR 95, sodium 133, potassium 3.8 , chloride 97, albumin 4.3, total bili 0.6, AST 62, ALT 75, alk phos 145 thyroid: TSH 3.07 Labs: 10/20/2019:( [facility]) CBC: WBC 7.1, RBC [...] reviewed her EKG and Echo with her after school tutor Dr. Peterson, who was in clin ic [...] Obesity, Class III, BMI 40-49.9 (morbid obesity) ([facility]) Orders Placed This Encounter Procedures ECG 12 [...] for continuity of care [facility]2020 docume nted in this encounter [...] [address] | | | | | | [place] [address] | | | | | | [phone] | | | | | | | | +--------+ + + + + | 08/28/ | Office | Cardiology | Dora De La Torre | | | 2019 | Visit | | [address] | | | | | | [address] | | | | | | [place] [address] | | | | | | [phone] | | | | | | | [...] | | | | | DORA VELAZQUEZ ([id number]) on | | | | | | [...]
--- OUTSIDE RECORDS SUMMARY | ~2020-05-22 | XMS | Encounter Summary ---
Demographics + + + | Address | [address] | | | [place] [address] | + + + | Home Phone [...] [place] | | | | | [address] | | + + + + + Care Team Providers + +------+ + | Care Director Of Retail Analytics Name | Role | Phone | [...] + + | 07/06/ | Emergency | [facility] | Yunior Sherman, | Chest pain, | | 2014 | | [facility] | MD [address] | unspecified chest | | | | CENTER [address] | [place], [place] | pain type (Primary | | | | [place], [place] | [address] | Dx) | | | | [address] | | | | | | [phone] | | | +--------+ + + + [...] sent through Care Everywhere.CHEST PAIN, NON CARDIAC (TURKISH)documented in this encounter Medications at Time of [...] 0 | | | | (VITAMIN D-3) 85495 | mouth Once a week. | | [...] | | | | | ([facility]) | | | | | [...] + + + +---------+ + + | Elora-3 Fatty | Take 1,000 mg by | [...] Surgeon: Frandy castellanos DO; Location: [facility] Cardiac catherization CURRENT MEDICATIONS Previous [...] mg by mouth Daily. CHOLECALCIFEROL (VITAMIN D-3) 07743 UNITS CAPS Take 50,000 Units by mouth [...] pain. [facility]. She's had more than [...] | | | | | | [place] [address] | | | | | | [phone] | | | | | | | | +--------+ + + + + | 08/28/ | Office | Cardiology | Dora De La Torre | | | 2019 | Visit | | [address] | | | | | | [address] | | | | | | [place] [address] | | | | | | [phone] | | | | | | | [...] [address] | [place] | [phone] | | [facility] | | [address] | | | - LABORATORY | | [...] + | [facility] | [address] | [place] | [phone] | | [facility] | | [address] | | | - LABORATORY | | [...] | | | | | | [employer] | | | | | [...] [address] | [place] | [phone] | | [facility] | | [address] | | | - LABORATORY | | [...] mL/min/1.73m2 | [facility] | | | [place] | RATE,ESTIMATED | | MEDICAL | | | | mL/min/1.26y8Wdqg than | | CENTER - | | [...] [address] | [place] | [phone] | | [facility] | | [address] | | | - LABORATORY | | [...] + | [facility] | [address] | [place] | [phone] | | [facility] | | [address] | | | - LABORATORY | | [...] | | | | MD MANSI, LACEY ([id number]) | | | | | | on [...]
--- OUTSIDE RECORDS SUMMARY | ~2020-05-22 | XMS | Encounter Summary ---
Demographics + + + | Address | [address] | | | [place] [address] | + + + | Home Phone [...] [place] | | | | | [address] | | + + + + + Care Team Providers + +------+ + | Care Financial Recording Clerk Name | Role | Phone | [...] | | | spondylolist | | [address] | | | | | hesis | | [place], | | | | | Spinal | | [place] [address] | | | | | stenosis, | | Phone: | | | | | lumbar | | [phone] | | | | | region, | | Fax: | | | | | without | | [phone] | | | | | neurogenic | [...] [facility] | Frandy Teresa, | Degenerative disc | | 2013 - | Encounter | MED CTR SURGICAL | DO [address] | disease, lumbar | | | | [address] | [place] [address] [place] | (Primary Dx); | | 07/05/ | | [place] [address] | [phone] | Diabetes mellitus | | 2013 | | [phone] | | ([facility]); Disturbance [...] might be different fro m the original. [facility] DISCHARGE SUMMARY PATIENT NAME: Cindy [...] Stable for discharge to SNF. DISPOSITION: SNF ([facility]) DISCHARGE MEDICATIONS Medications prior to admission [...] Take 15 mg by mouth nightl y. [place]-3 Fatty Acids (FISH OIL CONCENTRATE) 1000 MG [...] + + + +---------+ + + | [place]-3 Fatty | Take 1,000 mg by | [...] Lynn PA-C - 07/04/2014 7:43 AM PDT [facility] PROGRESS NOTE Pt. Name/Age/: Cindy Arndt 58 y.o. 1955 Med. Record Number: [id number] Date of admission: 07/02/2014 Subjective: The patient [...] home medications. D/C plan: Home tomorrow with [facility]. D/c mari drain and riley cath today. D/c roast master. Patient Active Problem List Diagnosis LUMBAR DISC [...] signed by: Chris Nicole, 07/04/2014 7:45 [facility] Chris Lynn PA-C - 07/03/2014 7:13 AM PDT . [facility] PROGRESS NOTE Pt. Name/Age/: Cindy Arndt 58 y.o. 1955 Med. Record Number: [id number] Date of admission: 07/02/2014 Subjective: The patient [...] PDTFrandy Teresa DO - 07/02/2014 11:15 AM [id number] [facility], [address] [place], [place] [id number] FAX: NEUROSURGERY HISTORY AND PHYSICAL EXAMINATION CHIEF [...] Take 15 mg by mouth earnestine eldridge. [place]-3 Fatty Acids (FISH OIL CONCENTRATE) 1000 MG [...] has no apparent deficits with short or longwall machine operator helper memory. CRANIAL NERVES: II: Acuity is intact. [...] Intrinsics 5 5 Ulnar Intrinsics 5 5 Publisher Assistant Strength 5 5 Hip Flexion 5 4* [...] documented in this en counter Procedure Notes [facility] - 07/12/2014 12:00 AM PDT 14 [facility] - 07/04/2014 12:00 AM PDT [facility] - 07/02/2014 12:00 AM PDT documented in this encounter Miscellaneous Notes Plan of Care - ONBASE [facility]AN [facility] - 07/12/2014 12:00 AM PDT [facility]cellaneous [facility] - 07/12/2014 12:00 AM PDTElec tronically signed by Mariah Schulte at 07/12/2014 1:45 PM PDTMiscellaneous - [facility] - 07/12/2014 12:00 AM PDT i scellaneous - BRUCE [facility]AN [facility] - 07/12/2014 12:00 AM PDT [...] I will be going to a senior living as I have 16 steps to my [...] TBD) Equipment Recommendations: tub bench;hand held shower head;freight representative;comfort height toilet ( pt. has all [...] Chris Nicole PA-C Consultants: none PCP: Natalee Andresen [facility] transferring to: [facility] Provider after transfer: PCP and Dr. Frandy Teresa CODE STATUS: [x] Attempt CPR [] Do not resuscitate If patient is pulseless and not breathing, RN/COW WASHER may pronounce . Advanced Directives included: [...] for this patient. Diet: [] As tolerated CERTIFIED FINANCIAL PLANNER may upgrade or downgrade diet as condition Indicates. [x] RN may downgrade diet as indicated. Type: [] Continue current diet of: Diet and Supplements Diet DIET CONSISTENT CARBOHYDRATE Number of Occurrences: -1 Days [] Other: Consistency/Precautions: [] Whole [] Thin Liquids [] Cut-up [] [place] Thick [] Advanced Chopped [] Honey Thickened [] Chopped [] Advanced Ground [] 1:1 feedings [] Ground/Pureed [] Other: Tube Feedings: [] PEG [] GT [] JT [] NGT [] Formula type: (Plasterer Foreman may change/substitute if indicated). [] Continuous Rate: [...] & Management for: ____same as above [] CERTIFIED FINANCIAL PLANNER Evaluation &Management for: [] Other: Wound/Skin Care: [...] Take 15 mg by mouth ni linda. [place]-3 Fatty Acids (FISH OIL CONCENTRATE) 1000 MG [...] (pediatric) IChris PA-C, certify that post hospital nursing home care is medically nec essary on a continuing basis for any of the conditions for which he/she received care during this hospitalization. Check one: [x] Skilled [] Intermediate Additional Orders/Instructions: Physician's signature:__Chris Nicole PA-C 07/05/2014 13:18 [facility] JMMEKarsten [facility] USE ONLY: [] Admitting orders [...] tolerate progressive walking and doing stairs du [facility] hospital stay due to multiple pain c/o. Attempted to see pt. 1145, however had just rec eived pain medication and requested PT return, SPL 9/10. At 1205 pt contacted PT for assist OOB due to left LE spasms and need for position change. Sitting at EOB on arrival, STEWARD/STEWARDESS THIRD CLASS pres ent. Pt. donned LSO brace, stood [...] of endurance. When patient is [facility] with a regular FWW she has to stop frequently and states she feels very weak, like sh e may fall. Patient lives alone. Outpatient prescriptions are filled at [facility] in [facility]. Electronically signed by: Franca Narvaez RN 07/05/2014 10:43 lan of Adilene Layne Rivers - 07/05/2014 10:39 AM PDTFaxed referral to Gabriela Stout and Lidia Tran. [place] : [id number] and [place]: [id number] Electronically signed by: Layne Collado 07/05/2014 10:40 [...] TBD) Equipment Recommendations: tub bench;hand held shower head;freight representative;comfort height toilet ( pt. has all necessary equipment) Planned Interventions: ADL retraining;transfer training Patient Status/Goals Reflects last filed data of patient status; may be from multiple contributors. Grooming: Status: did not occur today Assist: Utilizes: STG: Status: New Goal:modified independent LTG: Status: Goal: UE Dressing: Status: SBA Assist: Utilizes: STG: Status: Goal: LTG: Status: Goal: LE Dressing: Status: SBA Utilizes: freight representative STG: Status: New Goal: modified independent [...] bed mobil ity. Pt has been using OVERCOILER and pain pills during the night. Zofran [...] by herself in a small apartment in [place]. Patient states she has her apartment set [...] to come from [facility] [place]. She states the Said she might benefit [facility] upon discharge. She would like me to contact [facility] to giv e them a heads up. I called and spoke to Summer at [facility] , told her patients PCP [...] Pt. resting in bed on arrival, used OVERCOILER x 2 during session. SPL 5/10. Pt. hoping to urinate herbarium curator to straight cath. Sidelying to sit at [...] TBD) Equipment Recommendations: tub bench;hand held shower head;freight representative;comfort height toilet ( pt. has all [...] & Review . Outcome: Progressing Pt using OVERCOILER and PO pain pills, c/o numbness on [...] and on a continuous oximeter for her OVERCOILER. She was unable to do her IS because o f the medications. She has the IS at bedside with a goal of 2400. She did not require additi onal respiratory care throughout the evening. p Note - Frandy Teresa, - 07/02/2014 2:25 PM PDTDATE: 07/02/2014 SURGEON: Frandy Teresa MD. COAT MAKER: ZANE Oh PREOPERATIVE DIAGNOSES 1. Spondylolisthesis, L5-S1. [...] x 26 mm Capstone PEEK cage from [employer] was chosen. It was filled with Infus [...] Note Cindy Arndt 58 y.o. female 1955 [id number] Proc. Date 07/02/2014 Preop Dx Spondylolisthesis L5-S1 Postop Dx same Procedure Procedure(s):MIS L5-S1 TRANSFORAMINAL LUMBAR INTERBODY FUSION Anesthesia General Surgeon Frandy Teresa DO Solder Sprayer ZANE Oh EBL 100 mL Findings Findings [...] [address] | | | | | | [place] [address] | | | | | | [phone] | | | | | | | | +--------+ + + + + | 08/28/ | Office | Cardiology | Dora De La Torre | | | 2020 | Visit | | [address] | | | | | | [address] | | | | | | [place] [address] | | | | | | [phone] | | | | | | | [...] + | [facility] | [address] | [place] | [phone] | | [facility] | | [address] | | | - LABORATORY | | | | + + + + + | [facility] | [address] | [place] | | | [facility] | | [address] | | | - LABORATORY | | [...] + | [facility] | [address] | [place], [place] | [phone] | | [facility] | | [address] | | | - LABORATORY | | | | + + + + + | [facility] | [address] | [place], [place] | | | [facility] | | [id number] | | | - LABORATORY | | [...] [address] | [place] | [phone] | | [facility] | | [address] | | | - LABORATORY | | | | + + + + + | [facility] | [address] | [place], [place] | | | [facility] | | [id number] | | | - LABORATORY | | [...] + | [facility] | [address] | [place] | [phone] | | [facility] | | [address] | | | - LABORATORY | | | | + + + + + | [facility] | [address] | [place], [place] | | | [facility] | | [id number] | [...] [address] | [place] | [phone] | | [facility] | | [address] | | | - LABORATORY | | | | + + + + + | [facility] | [address] | [place] | | | [facility] | | [id number] | | | - LABORATORY | | [...] + | [facility] | [address] | [place] | [phone] | | [facility] | | [address] | | | - LABORATORY | | | | + + + + + | [facility] | [address] | [place], [place] | | | [facility] | | [id number] | [...] [address] | [place] | [phone] | | [facility] | | [address] | | | - LABORATORY | | | | + + + + + | [facility] | [address] | [place] | | | [facility] | | [address], [facility] | | | - [...] + | [facility] | [address] | [place], [place] | [phone] | | [facility] | | [address] | | | - LABORATORY | | | | + + + + + | [facility] | [address] | [place], [place] | | | [facility] | | [id number] [place] [address] | | | - LABORATORY | | [...] + | [facility] | [address] | [place], [place] | [phone] | | [facility] | | [address] | | | - LABORATORY | | | | + + + + + | [facility] | [address] | [place], [place] | | | [facility] | | [id number] [place] [address] | | | - LABORATORY | | [...] | of hardware for posterior fusion from E9dehugkv S1 with interbody hardware at L5-S1. The [...] + | MISCELLANEOUS LAB | | | [phone] | + +---------+ + + | MISCELANIOUS LAB | | | [phone] | + +---------+ + + POC Glucose [...] + | [facility] | [address] | [place] | [phone] | | [facility] | | [address] | | | - LABORATORY | | | | + + + + + | [facility] | [address] | [place] | | | [facility] | | [address], [facility] | | | - [...] + | [facility] | [address] | [place], [place] | [phone] | | [facility] | | [address] | | | - LABORATORY | | | | + + + + + | [facility] | [address] | [place], [place] | | | [facility] | | [address] | | | - LABORATORY | | [...] [address] | [place] | [phone] | | [facility] | | [address] | | | - LABORATORY | | | | + + + + + | [address] | [address] | [place] | | | [facility] | | [address] | | | - LABORATORY | | [...] + | [facility] | [address] | [place], [place] | [phone] | | [facility] | | [address] | | | - LABORATORY | | | | + + + + + | [facility] | [address] | [place], [place] | | | [facility] | | [id number] | | | - LABORATORY | | [...] [address] | [place] | [phone] | | [facility] | | [address] | | | - LABORATORY | | | | + + + + + | [facility] | [address] | [place] | | | [facility] | | [address] | | | - LABORATORY | | [...] | | [facility] | | [address] | | | - BLOOD BANK | [...] + +---------+ +---+---+---+ | morphine 5 mg/mL OVERCOILER syringe | New Bag | 07/02/20 | [...] | | | | Dose(mg): 0, Starting OVERCOILER | | | | | | | Dose(mg): 1, Incremental Increase | | | | | | | OVERCOILER Dose(mg): 0.5, Maximum OVERCOILER | | | | | | | [...]
--- OUTSIDE RECORDS SUMMARY | ~2020-05-22 | XMS | Encounter Summary ---
Demographics + + + | Address | [address] | | | [place] [address] | + + + | Home Phone [...] [place] | | | | | [address] | | + + + + + Care Team Providers + +------+ + | Care Receivable Executive Name | Role | Phone | [...] + + | 02/26/ | Emergency | [facility] | [place], | CVA (cerebral | | 2015 | | MED CTR EMERGENCY | Davey Simons MD [address] | vascular accident) | | | | CENTER [address] | [address] [facility] | ([facility]) (Primary Dx) | | | | [place], [place] | [place] [address] | | | | | [address] | [phone] | | | | | [phone] | | | +--------+ + + + [...] + + + +---------+ + + | [place]-3 Fatty | Take 1,000 mg by | [...] might be differe nt from the original. [facility] Emergency Department Encounter Note [address] [place] [address] PCP:Natalee Andersen [phone] CHIEF COMPLAINT: Chief Complaint Patient presents with Facial Droop ED Room: ED07/ED07 HPI Cindy Arndt is a 59 y.o. female who presents to the Emergency Department accompanied by a friend from [place] for evaluation. The patient recently had symptoms that were diagno sed as stroke or TIA. The symptoms were of a weakness and numbness in her right arm and leg . She was hospitalized for 4 days in [place] for this. She was discharged and subsequent ly has had 2 or 3 emergency department visits in [place] for symptoms diagnosed as TIAs. These have been recurrent and worsening right arm and leg weakness and then today with some right facial drooping and drooling. She is on Aggrenox. She had a full workup in [place] including brain CT, brain MRI, and carotid [...] Laterality: N/A; Surgeon: Frandy castellanos DO; Location: [facility] MAIN OR CURRENT MEDICATIONS Discharge Medication [...] or Severe Contraindications. Consult references such as MyOtherDrive for furthe r information. Magnesium 250 MG [...] or Severe Contraindications. Consult references such as MyOtherDrive for further information. Multiple Vitamins-Minerals (CENTRUM SILVER PO) Take 1 tablet by mouth Daily.Historical Med OLANZapine zydis (ZYPREXA ZYDIS) 15 MG disintegrating tablet Take 15 mg by mouth nightly. [place]-3 Fatty Acids (FISH OIL CONCENTRATE) 1000 MG [...] review all of her imaging studies from [facility] ED COURSE & MEDICAL DECISION MAKING Pertinent Labs & Imaging studies were reviewed along with EMS notes and long term record s if applicable. (See chart for details) Medications and Allergy list reviewed. Nurses note and old records were reviewed The patient was seen and examined, I was finally able to get her records from [facility] which showed a normal MRI and less [...] accident) (HCC) Follow-up Information Follow up with [facility]. Specialty: Emergency Medicine Contact information: [address] [facility] [address] Follow up with [facility]. Specialty: Emergency Medicine Contact information: [address] [facility] [address] Follow up with Natalee Andersen NP. Specialty: Family Nurse Practitioner Contact information: [address] [place] [address] Schedule an appointment as soon as possible for a visit with Baudilio Newman MD. Specialty: Neurology Contact information: [address] [facility] [place] [address] Discharge Medication List as of 02/26/2015 15:21 Davey Varela MD 02/26/15 1732 do cumented in this encounter Miscellaneous Notes ED Triage Notes - Yesenia Monroy RN - 02/26/2015 1:11 PM PDTC/O right sided facial mahendra op and numbness to right arm and leg onset yesterday at approximately 1800. Pt was seen in [facility] by her primary care physician this [...] [address] | | | | | | [place] [address] | | | | | | [phone] | | | | | | | | +--------+ + + + + | 08/28/ | Office | Cardiology | Dora De La Torre | | | 2019 | Visit | | [address] | | | | | | [address] | | | | | | [place] [address] | | | | | | [phone] | | | | | | | [...] mL/min/1.73m2 | [facility] | | | [place] | RATE,ESTIMATED | | MEDICAL | | | | mL/min/1.21n0Fabz than | | CENTER - | | [...] [address] | [place] | [phone] | | [facility] | | [address] | | | - LABORATORY | | [...] [address] | [place] | [phone] | | [facility] | | [address] | | | - LABORATORY | | [...] | ---- | | | 02/26/2015 13:10 [facility] | | | Emergency -numbness/facial droop 02/26/2015 08:15 [facility] | | | [facility] 02/19/2015 | | | 10:15 [facility] | | | -Diabetes [...] uncontrolled 02/17/2015 | | | 08:22 [facility] Emergency | | | -Long-term [...] uterus 02/14/2015 | | | 09:56 [facility] Emergency | | | -Disturbance [...] status 02/06/2015 10:46 | | | [facility] | | | -Generalized [...] deficits | | | 02/01/2015 21:38 [facility] | | | Emergency 01/22/2015 14:00 [facility] | | | Urgent Care -Myalgia [...] disc | | | 01/16/2015 12:15 [facility] | | | Urgent Care -Unspecified [...] | | | medications 01/07/2015 11:45 [facility] | | | Urgent Care -Unspecified [...] hypothyroidism 12/30/2014 | | | 17:54 [facility] Emergency | | | -Obstructive sleep [...] hypertension | | | 12/30/2014 14:30 [facility] | | | Urgent Care -Cramp [...] | -Cramp of limb 11/29/2014 16:15 [facility] | | | Urgent Care -Esophageal [...] ------ | | | --------- [address] | | | [facility] [address] [facility] [address] | | | [facility] 7 0 Total | | | Note: Visits indicate total known visits. [place] Dx are the | | | number of primary diagnoses on the [facility]'s non-emergent dx list. | | | [...]
--- OUTSIDE RECORDS SUMMARY | ~2020-05-22 | XMS | Encounter Summary ---
Demographics + + + | Address | [address] | | | [place] [address] | + + + | Home Phone [...] [place] | | | | | [address] | | + + + + + Care Team Providers + +------+ + | Care Industrial Aerial Installer Name | Role | Phone | [...] + + | 04/30/ | Office | [facility] | Russell Alfaro PA | ROGERS on CPAP (Primary | | 2015 | Visit | SLEEP DISORDER [address] | [address] | Dx) | | | | [address] | [place] | | | | | [place] [address] | [address] | | | | | [phone] | | | +--------+---------+ + + + [...] encounter Progress Notes Gail Cadet, Master of ZuzuChe - 04/30/2015 11:12 AM PDTFormatting of this note might be khoi rivas from the original. 04/30/15 1100 [place] Depression Inventory-II Depression Score 9 - Minimal depression Insomnia Severity Index Insomnia Severity Index 13 [place] Sleepiness Scale Sitting and reading 3 Watching [...] appro priate paperwork. Thirty minutes were spent [id number], with the majority of time spent i [...] [address] | | | | | | [place] [address] | | | | | | [phone] | | | | | | | | +--------+ + + + + | 08/28/ | Office | Cardiology | Dora De La Torre | | | 2020 | Visit | | [address] | | | | | | [address] | | | | | | [place] [address] | | | | | | [phone] | | | | | | | | +--------+ + + + + documented as of this encounter Visit Diagnoses + + | Diagnosis | + + | ROGERS on CPAP - Primary Obstructive sleep apnea (adult) (pediatric) | + + documented in this encounter"
--- OUTSIDE RECORDS SUMMARY | ~2020-05-22 | XMS | Encounter Summary ---
Demographics + + + | Address | [address] | | | [place] [address] | + + + | Home Phone [...] [place] | | | | | [address] | | + + + + + Care Team Providers + +------+ + | Care Cement Sack Breaker Name | Role | Phone | [...] | | | spondylolist | | [address] | | | | | hesis | | [place], | | | | | Spinal | | [place] [address] | | | | | stenosis, | | Phone: | | | | | lumbar | | [phone] | | | | | region, | | Fax: | | | | | without | | [phone] | | | | | neurogenic | [...] | | | | | | | [place] | | | | | | [...] | | | | | | [place] | | | | | | | [...] | | | | | | SEG [place] | | | | | | | [...] | 07/02/ | Hospital | [facility] | Frandy Teresa, | Spinal stenosis, | | 2013 | Encounter | MED CTR XRAY [address] | DO [address] | lumbar region, | | | | [place] | [address] [place], [place] | without neurogenic | | | | [place] [address] | [address] | claudication | | | | [phone] | | (Primary Dx) | +--------+ + [...] + + + +---------+ + + | Taylor-3 Fatty | Take 1,000 mg by | [...] [address] | | | | | | [place] [address] | | | | | | [phone] | | | | | | | | +--------+ + + + + | 08/28/ | Office | Cardiology | Britt Dora | | | 2019 | Visit | | [address] | | | | | | [address] | | | | | | [place] [address] | | | | | | [phone] | | | | | | | [...]
--- OUTSIDE RECORDS SUMMARY | ~2020-05-22 | XMS | Encounter Summary ---
Demographics + + + | Address | [address] | | | [place] [address] | + + + | Home Phone [...] [place] | | | | | [address] | | + + + + + Care Team Providers + +------+ + | Care Web Administrator Name | Role | Phone | [...] + + | 08/20/ | Documentati | [facility] | Katharine Moncada, | Other (urgent | | 2019 | on | CARDIOLOGY [place] | Technologist | report) | | | | [address] | | | | | | [place] | | | | | | [address] | | | | | | [phone] | | | +--------+ + + + [...] | | | | | [place] [address] | | | | | | [phone] | | | | | | | | +--------+ + + + + | 08/28/ | Office | Cardiology | Dora De La Torre | | | 2020 | Visit | | [address] | | | | | | [address] | | | | | | [place] [address] | | | | | | [phone] | | | | | | | | +--------+ + + + + documented as of this encounter Visit Diagnoses Not on filedocumented in this encounter"
--- OUTSIDE RECORDS SUMMARY | ~2020-05-22 | XMS | Encounter Summary ---
Demographics + + + | Address | [address] [facility] [address] | | | [place] [address] | + + + | Home Phone [...] [place], [place] | | | | | [address] | | + + + + + Care Team Providers + +------+ + | Care Trestleman Name | Role | Phone | + +------+ + PCP | Unavailable | + +------+ + Encounter Details +--------+ + + + + | Date | Type | Department | Care Team | Description | +--------+ + + + + | 02/22/ | Hospital | [facility] | | | | 1996 - | Encounter | MED CTR GENERIC PSY | | | | | | CONV DEPT [address] | | | | 02/26/ | | [place], | | | | 1996 | | [place] [address] | | | | | | [phone] | | | +--------+ + + + [...] [address] | | | | | | [place] [address] | | | | | | [phone] | | | | | | | | +--------+ + + + + | 08/28/ | Office | Cardiology | Dora De La Torre | | | 2019 | Visit | | [address] | | | | | | [address] | | | | | | [place] [address] | | | | | | [phone] | | | | | | | | +--------+ + + + + documented as of this encounter Visit Diagnoses Not on filedocumented in this encounter"
--- OUTSIDE RECORDS SUMMARY | ~2020-05-22 | XMS | Encounter Summary ---
Demographics + + + | Address | [address] [facility] [address] | | | [place] [address] | + + + | Home Phone [...] | Author | [facility] | | | and [...] [place] | | | | | [address] | | + + + + + Care Team Providers + +------+ + | Care Ceramist Name | Role | Phone | + [...] + + | 08/16/ | Telephone | [facility] | Ashley Chávez | Other (Called to | | 2018 | | CARDIOLOGY [place] | Pollo, Direct Chill Casting Operator | tell patient what | | | | [address] | | Nicholas said. ) | | | | [place] [address] | | | | | | [place] | | | | | | [address] | | | | | | [phone] | | | +--------+ + + + [...] Miscellaneous Notes Telephone Encounter - Ashley Chávez, Direct Chill Casting Operator - 08/16/2019 2:57 PM PDTCall m cierra to patient to advise of Dr. Peterson's notes. Patient stated understanding. JKASSIE:DRAFTING TEACHER-AAMA el ephone Encounter - Ashley Chávez Direct Chill Casting Operator - 08/16/2019 2:56 PM PDT----- Mess [...] Thanks. ----- Message ----- From: Lesa Ochoa, Direct Chill Casting Operator Sent: 08/13/2019 13:31 To: Desiree Peterson [...] | | | | | | [place] [address] | | | | | | [phone] | | | | | | | | +--------+ + + + + | 08/28/ | Office | Cardiology | Dora De La Torre | | | 2019 | Visit | | [address] | | | | | | [address] | | | | | | [place] [address] | | | | | | [phone] | | | | | | | | +--------+ + + + + documented as of this encounter Visit Diagnoses Not on filedocumented in this encounter"
--- OUTSIDE RECORDS SUMMARY | ~2020-05-22 | XMS | Encounter Summary ---
Demographics + + + | Address | [address] [facility] [address] | | | [place] [address] | + + + | Home Phone [...] [place] | | | | | [address] | | + + + + + Care Team Providers + +------+ + | Care Sharepoint Administrator Name | Role | Phone | [...] + + | 08/14/ | Telephone | [facility] | Ashley Chávez | Other (Patient was | | 2018 | | CARDIOLOGY [place], Compressor Station Engineer | anxious about urgent | | | | [address] | | reports. ) | | | | [place] | | | | | | [address] | | | | | | [phone] | | | +--------+ + + + [...] Miscellaneous Notes Telephone Encounter - Ashley Chávez, Compressor Station Engineer - 08/14/2019 9:16 AM Seferino foster called [...] for the time being. Patient stated understanding. JDW:CAREER SERVICES ASSISTANT-AAMA. [facility] umented in this encounter Plan [...] | | | | | [place] [address] | | | | | | [phone] | | | | | | | | +--------+ + + + + | 08/28/ | Office | Cardiology | Dora De La Torre | | | 2020 | Visit | | [address] | | | | | | [address] | | | | | | [place] [address] | | | | | | [phone] | | | | | | | | +--------+ + + + + documented as of this encounter Visit Diagnoses Not on filedocumented in this encounter"
--- OUTSIDE RECORDS SUMMARY | ~2020-05-22 | XMS | Encounter Summary ---
Demographics + + + | Address | [address] [facility] [address] | | | [place] [address] | + + + | Home Phone [...] [place] | | | | | [address] | | + + + + + Care Team Providers + +------+ + | Care Inspector Printed Circuit Boards Name | Role | Phone | + [...] + + | 10/22/ | Telephone | [facility] | Susu Peralta, | Other | | 2019 | | CARDIOLOGY [place] Nath RN | | | | | [address] | | | | | | [place], [place] | | | | | | [address] | | | | | | [phone] | | | +--------+ + + + [...] | | | | | [place] [address] | | | | | | [phone] | | | | | | | | +--------+ + + + + | 08/28/ | Office | Cardiology | Dora De La Torre | | | 2019 | Visit | | [address] | | | | | | [address] | | | | | | [place] [address] | | | | | | [phone] | | | | | | | | +--------+ + + + + documented as of this encounter Visit Diagnoses Not on filedocumented in this encounter"
--- OUTSIDE RECORDS SUMMARY | ~2020-05-22 | XMS | Encounter Summary ---
Demographics + + + | Address | [address] [facility] [address] | | | [place] [address] | + + + | Home Phone [...] [place] | | | | | [address] | | + + + + + Care Team Providers + +------+ + | Care Loss Control Manager Name | Role | Phone | [...] | 12/03/ | Refill | [facility] | Frandy Teresa, | Medication Refill | | 2014 | | NEUROSURGERY [address] | DO [address] | | | | | [facility] | [address] [place], [place] | | | | | [place], [place] | [id number] | | | | | [address] | | | | | | [phone] | | | +--------+--------+ + + + [...] office and the number we have in [facility] is not correct. Art Andersen NP Chart notes faxed to [phone] along with medication list. Sent request to update contac t information in [facility] To Kathy @ [facility] Support Team documented in this [...] | | | | [place] [address] | | | | | | [phone] | | | | | | | | +--------+ + + + + | 08/28/ | Office | Cardiology | Dora De La Torre | | | 2019 | Visit | | [address] | | | | | | [address] | | | | | | [place] [address] | | | | | | [phone] | | | | | | | | +--------+ + + + + documented as of this encounter Visit Diagnoses Not on filedocumented in this encounter"
--- OUTSIDE RECORDS SUMMARY | ~2020-05-22 | XMS | Encounter Summary ---
Demographics + + + | Address | [address] | | | [place] [address] | + + + | Home Phone [...] [place] | | | | | [address] | | + + + + + Care Team Providers + +------+ + | Care Slumber Room Attendant Name | Role | Phone | + +------+ + | Adriano Patrick MD | PCP | | + +------+ + Encounter Details +--------+ + + + + | Date | Type | Department | Care Team | Description | +--------+ + + + + | 06/10/ | Abstract | [facility] | Thierry Fry | | | 2014 | | MEDICINE [facility] R[facility] | MD Lisa [address] | | | | [address] [place], | [place], [place] | | | | | [place] [address] | [address] | | | | | [phone] | | | +--------+ + + + [...] | | | | | [place] [address] | | | | | | [phone] | | | | | | | | +--------+ + + + + | 08/28/ | Office | Cardiology | Dora De La Torre | | | 2019 | Visit | | [address] | | | | | | [address] | | | | | | [place] [address] | | | | | | [phone] | | | | | | | [...]
--- OUTSIDE RECORDS SUMMARY | ~2020-05-22 | XMS | Encounter Summary ---
Demographics + + + | Address | [address] | | | [place] [address] | + + + | Home Phone [...] [place] | | | | | [address] | | + + + + + Care Team Providers + +------+ + | Care Relations Director Name | Role | Phone [...] | SLEEP DISORDER [address] | [address] | | | | | [address] [place] | [place] | | | | | [place] [address] | [address] | | | | | [phone] | | | +--------+ + + + [...] PDTPat was last seen in our o [facility] on 04/30/2015. He did not cancel or [...] PA-C eleph one Encounter - Gail Cadet, Shopping Inspector - 07/15/2016 8:37 AM PDTCalled to resched ule patient's no show appointment unable to contact all numbers are disconnected. Electronic ally signed by Gail Cadet Shopping Inspector at 07/15/2016 8:37 AM PDTdocumented in this [...] [address] | | | | | | [place] [address] | | | | | | [phone] | | | | | | | | +--------+ + + + + | 08/28/ | Office | Cardiology | Dora De La Torre | | | 2019 | Visit | | [address] | | | | | | [address] | | | | | | [place] [address] | | | | | | [phone] | | | | | | | | +--------+ + + + + documented as of this encounter Visit Diagnoses Not on filedocumented in this encounter"
--- OUTSIDE RECORDS SUMMARY | ~2020-05-22 | XMS | Encounter Summary ---
Demographics + + + | Address | [address] [facility] [address] | | | [place] [address] | + + + | Home Phone [...] [place], [place] | | | | | [address] | | + + + + + Care Team Providers + +------+ + | Care Paraffin Machine Operator Name | Role | Phone | + +------+ + PCP | Unavailable | + +------+ + Encounter Details +--------+ + + + + | Date | Type | Department | Care Team | Description | +--------+ + + + + | 05/23/ | Hospital | [facility] | [place], | | | 2011 | Encounter | MED CTR XRAY [address] | MD [address] | | | | | [place] | [place] | | | | | [place] [address] | [address] | | | | | [phone] | | | +--------+ + + + [...] + + + +---------+ + + | Savoy-3 Fatty | Take 1,000 mg by | [...] [address] | | | | | | [place] [address] | | | | | | [phone] | | | | | | | | +--------+ + + + + | 08/28/ | Office | Cardiology | Dora De La Torre | | | 2019 | Visit | | [address] | | | | | | [address] | | | | | | [place] [address] | | | | | | [phone] | | | | | | | [...] | | [address] [place] [address] | [facility] | | LUMBAR SPINE MR WITHOUT CONTRAST, [...] Transcribed Date/Time: | | | 05/23/2012 16:55 General Operator: <Electronically Signed | | | by Adriano Anne MD> 05/23/12 7045 | | + + + + + | Procedure Note | + + | Juan, Rad Conversion - 11/30/2013 5:47 PM [facility] | | Diagnostic Imaging Department [address] [facility] | | LUMBAR SPINE MR WITHOUT [...] 16:37 | |Transcribed Date/Time: 05/23/2012 16:55 | |General Operator: | |<Electronically Signed by Adriano Anne MD> 05/23/12 1725 | + + + +---------+ + + | Performing | Address | City/State/Zipcode | Phone Number | | Organization | | | | + +---------+ + + | [place] | | | | | [facility] | | | | + +---------+ + + documented in this encounter Visit Diagnoses Not on filedocumented in this encounter"
--- OUTSIDE RECORDS SUMMARY | ~2020-05-22 | XMS | Encounter Summary ---
Demographics + + + | Address | [address] [facility] [address] | | | [place] [address] | + + + | Home Phone [...] [place] | | | | | [address] | | + + + + + Care Team Providers + +------+ + | Care Stretching Machine Operator Name | Role | Phone [...] Prior | | 2014 | | MEDICINE [address] [place] [address] | MD Lisa [address] | Authorization | | | | [place], | [place] | (Dexilant 60Mg) | | | | [place] [address] | [address] | | | | | [phone] | | | +--------+ + + + [...] were not received I contacted insurance ID# [id number] This has been denied. The patient must try and fail 2 of the following Omeprazole Protonix Prevacid Nexium Please advise elepho ne Encounter - Saba Acosta Cert [place] - 03/26/2015 1:32 PM PDTCalled and requested a prior authorization Requested for via fax from [employer] Prior auth medication Dexilant 60MgElectronically signed by [...] | | | | | [place] [address] | | | | | | [phone] | | | | | | | | +--------+ + + + + | 08/28/ | Office | Cardiology | Dora De La Torre | | | 2020 | Visit | | [address] | | | | | | [address] | | | | | | [place] [address] | | | | | | [phone] | | | | | | | | +--------+ + + + + documented as of this encounter Visit Diagnoses Not on filedocumented in this encounter"
--- OUTSIDE RECORDS SUMMARY | ~2020-05-22 | XMS | Encounter Summary ---
Demographics + + + | Address | [address] [facility] [address] | | | [place] [address] | + + + | Home Phone [...] [place] | | | | | [address] | | + + + + + Care Team Providers + +------+ + | Care Event Decorator Name | Role | Phone | + +------+ + | Hari Samson DO | PCP | | + +------+ + Encounter Details +--------+ + + + + | Date | Type | Department | Care Team | Description | +--------+ + + + + | 06/12/ | Hospital | [facility] | Frandy Teresa, | No Show | | 2014 | Encounter | MED CTR | DO [address] | | | | | ELECTRODIAGNOSTICS | [address] [place], [place] | | | | | [address] [place] | [address] | | | | | [place] [address] | | | | | | [phone] | | | +--------+ + + + [...] | | | | | [place] [address] | | | | | | [phone] | | | | | | | | +--------+ + + + + | 08/28/ | Office | Cardiology | Dora De La Torre | | | 2020 | Visit | | [address] | | | | | | [address] | | | | | | [place] [address] | | | | | | [phone] | | | | | | | | +--------+ + + + + documented as of this encounter Visit Diagnoses Not on filedocumented in this encounter"
--- OUTSIDE RECORDS SUMMARY | ~2020-05-22 | XMS | Encounter Summary ---
Demographics + + + | Address | [address] [facility] [address] | | | [place] [address] | + + + | Home Phone [...] Author + + + | Author | [facility] | + + + | Organization | [facility] | + + + | Address | Unknown | + + + | Phone | Unavailable | + + + Support + + + + + | Name | Relationship | Address | Phone | + + + + + | Kelsy Bautista | ECON | [address] | | | | | [place] | | | | | [address] | | + + + + + Care Team Providers + +------+ + | Care Loading Unit Tool Setter Name | Role | Phone | [...] [address] | | | | | | [place], [place] | | | | | | [address] | | | +--------+ + + + [...]
--- OUTSIDE RECORDS SUMMARY | ~2020-05-22 | XMS | Encounter Summary ---
Demographics + + + | Address | [address] [facility] | | | [place] [address] | + + + | Home Phone [...] [place] | | | | | [address] | | + + + + + Care Team Providers + +------+ + | Care Ultrasonic Hand Solderer Name | Role | Phone | + [...] | | | | | | [place], | | | | | | [place] [address] | | | | | | [phone] | | | +--------+ + + + [...] | | + +---------+ + + | [facility] DEPARTMENT OF | | | | | RADIOLOGY | | | | + +---------+ + + documented in this encounter Visit Diagnoses Not on filedocumented in this encounter"
--- OUTSIDE RECORDS SUMMARY | ~2020-05-22 | XMS | Encounter Summary ---
Demographics + + + | Address | [address] [facility] [address] | | | [place] [address] | + + + | Home Phone [...] [place], [place] | | | | | [address] | | + + + + + Care Team Providers + +------+ + | Care Metal Riveting Machine Operator Name | Role | Phone | + +------+ + PCP | Unavailable | + +------+ + Encounter Details +--------+ + + + + | Date | Type | Department | Care Team | Description | +--------+ + + + + | 02/24/ | Hospital | [facility] | | | | 1997 - | Encounter | MED CTR GENERIC PSY | | | | | | CONV DEPT [address] | | | | 02/26/ | | [place], | | | | 1997 | | [place] [address] | | | | | | [phone] | | | +--------+ + + + [...] | 05/29/ | Procedure | Cardiology | Doar De La Torre | | | 2019 | visit | | [address] | | | | | | [address] | | | | | | [place] [address] | | | | | | [phone] | | | | | | | | +--------+ + + + + | 08/28/ | Office | Cardiology | Dora De La Torre | | | 2019 | Visit | | [address] | | | | | | [address] | | | | | | [place] [address] | | | | | | [phone] | | | | | | | | +--------+ + + + + documented as of this encounter Visit Diagnoses Not on filedocumented in this encounter"
--- OUTSIDE RECORDS SUMMARY | ~2020-05-22 | XMS | Encounter Summary ---
Demographics + + + | Address | [address] [facility] | | | [place] [address] | + + + | Home Phone | | + + + | Preferred Language | Unknown | + + + | Marital Status | Single | + + + | Denominational Affiliation | Unknown | + + + [...] [place] | | | | | [address] | | + + + + + Care Team Providers + +------+ + | Care Senior It Recruiter Name | Role | Phone | [...] | | | | | | [place], | | | | | | [place] [address] | | | | | | [phone] | | | +--------+ + + + [...] | | + +---------+ + + | [facility] DEPARTMENT OF | | | | | RADIOLOGY | | | | + +---------+ + + documented in this encounter Visit Diagnoses Not on filedocumented in this encounter"
--- OUTSIDE RECORDS SUMMARY | ~2020-05-22 | XMS | Encounter Summary ---
Demographics + + + | Address | [address] [facility] [address] | | | [place] [address] | + + + | Home Phone [...] [place], [place] | | | | | [address] | | + + + + + Care Team Providers + +------+ + | Care Mental Tester Name | Role | Phone | + +------+ + PCP | Unavailable | + +------+ + Encounter Details +--------+ + + + + | Date | Type | Department | Care Team | Description | +--------+ + + + + | 07/17/ | Hospital | [facility] | | | | 1997 | Encounter | MED CTR EMERGENCY | | | | | | [address] | | | | | | [place] | | | | | | [address] | | | | | | [phone] | | | +--------+ + + + [...] | | | | | [place] [address] | | | | | | [phone] | | | | | | | | +--------+ + + + + | 08/28/ | Office | Cardiology | Dora De La Torre | | | 2020 | Visit | | [address] | | | | | | [address] | | | | | | [place] [address] | | | | | | [phone] | | | | | | | | +--------+ + + + + documented as of this encounter Visit Diagnoses Not on filedocumented in this encounter"
--- OUTSIDE RECORDS SUMMARY | ~2020-05-22 | XMS | Encounter Summary ---
Demographics + + + | Address | [address] [facility] [address] | | | [place] [address] | + + + | Home Phone [...] [place] | | | | | [address] | | + + + + + Care Team Providers + +------+ + | Care Barber Instructor Name | Role | Phone | [...] | | | | | | | [address] | | | | | | | Phone: | | | | | | | [phone] | | | | | | | Fax: | | | | | | | [phone] | | +--------+ + + + + + Reason for Visit + + + | Reason | Comments | + + + | Follow-up | 4 Week PO | + + + Encounter Details +--------+---------+ + + + | Date | Type | Department | Care Team | Description | +--------+---------+ + + + | 07/25/ | Office | [facility] | Frandy Teresa, | Lumbar spondylosis | | 2013 | Visit | NEUR[address]URGERY [address] | DO [address] | (Primary Dx); S/P | | | | [address] | [address] [place], [place] | lumbar fusion | | | | [place], [place] | [address] | | | | | [address] | | | | | | [phone] | | | +--------+---------+ + + + [...] original. Frandy Teresa DO [address] [facility] [place] [address] FAX: NEUROSURGERY SURGICAL FOLLOW-UP CHIEF COMPLAINT: Chief [...] Take 15 mg by mouth nightl y. [place]-3 Fatty Acids (FISH OIL CONCENTRATE) 1000 MG [...] | | | | | [place] [address] | | | | | | [phone] | | | | | | | | +--------+ + + + + | 08/28/ | Office | Cardiology | Dora De La Torre | | | 2019 | Visit | | [address] | | | | | | [address] | | | | | | [place] [address] | | | | | | [phone] | | | | | | | [...] + | MISCELLANEOUS LAB | | | [phone] | + +---------+ + + | MISCELANIOUS LAB | | | [phone] | + +---------+ + + documented in this encounter Visit Diagnoses + + | Diagnosis | + + | Lumbar spondylosis - Primary Lumbosacral spondylosis without myelopathy | + + | S/P lumbar fusion Arthrodesis status | + + documented in this encounter
--- OUTSIDE RECORDS SUMMARY | ~2020-05-22 | XMS | Encounter Summary ---
Demographics + + + | Address | [address] [facility] [address] | | | [place] [address] | + + + | Home Phone [...] [place] | | | | | [address] | | + + + + + Care Team Providers + +------+ + | Care Door Slinger Name | Role | Phone | + [...] + + | 05/01/ | Telephone | [facility] | Dora De La Torre | Medication Question | | 2020 | | CARDIOLOGY [place] | [address] | | | | | [address] | [address] | | | | | [address] | [place] [address] | | | | | [place] | [phone] | | | | | [address] | | | | | | [phone] | | | +--------+ + + + [...] [address] | | | | | | [place] [address] | | | | | | [phone] | | | | | | | | +--------+ + + + + | 11/05/ | Office | Cardiology | Dora De La Torre | | | 2020 | Visit | | [address] | | | | | | [address] | | | | | | [place] [address] | | | | | | [phone] | | | | | | | | +--------+ + + + + documented as of this encounter Visit Diagnoses Not on filedocumented in this encounter"
--- OUTSIDE RECORDS SUMMARY | ~2020-05-22 | XMS | Encounter Summary ---
Demographics + + + | Address | [address] | | | [place] [address] | + + + | Home Phone [...] [place] | | | | | [address] | | + + + + + Care Team Providers + +------+ + | Care Mastic Man Name | Role | Phone | [...] + | 08/20/ | Documentati | [facility] | Katharine Moncada, | Other (urgent | | 2019 | on | CARDIOLOGY [place] | Technologist | report) | | | | [address] | | | | | | [place] | | | | | | [address] | | | | | | [phone] | | | +--------+ + + + [...] | | | | | [place] [address] | | | | | | [phone] | | | | | | | | +--------+ + + + + | 08/28/ | Office | Cardiology | Dora De La Torre | | | 2020 | Visit | | [address] | | | | | | [address] | | | | | | [place] [address] | | | | | | [phone] | | | | | | | | +--------+ + + + + documented as of this encounter Visit Diagnoses Not on filedocumented in this encounter"
--- OUTSIDE RECORDS SUMMARY | ~2020-05-22 | XMS | Encounter Summary ---
Demographics + + + | Address | [address] | | | [place] [address] | + + + | Home Phone [...] [place] | | | | | [address] | | + + + + + Care Team Providers + +------+ + | Care Associate Chemist Name | Role | Phone | [...] + + | 10/25/ | Telephone | [facility] | Ashley Chávez | Other (Patient to | | 2019 | | CARDIOLOGY [place], Inspector Plating | stay on the same | | | | [address] | | dose. ) | | | | [place] | | | | | | [address] | | | | | | [phone] | | | +--------+ + + + [...] Miscellaneous Notes Telephone Encounter - Ashley Chávez Inspector Plating - 10/25/2019 8:44 AM PSTCall m cierra [...] CLAYTONW:IRINA-AAMA. el ephone Encounter - Ashley Chávez Inspector Plating - 10/25/2019 8:40 AM PST----- Mess age from Desiree Peterson DO sent at 10/24/2019 8:42 PM PST ----- Regarding: RE: Patient's Metoprolol. We can stay on the same dose of metoprolol for now. Thanks ----- Message ----- From: Ashley Chávez Inspector Plating Sent: 10/23/2019 10:52 AM PST To: Desiree [...] | | | | | [place] [address] | | | | | | [phone] | | | | | | | | +--------+ + + + + | 08/28/ | Office | Cardiology | Dora De La Torre | | | 2020 | Visit | | [address] | | | | | | [address] | | | | | | [place] [address] | | | | | | [phone] | | | | | | | | +--------+ + + + + documented as of this encounter Visit Diagnoses Not on filedocumented in this encounter"
--- OUTSIDE RECORDS SUMMARY | ~2020-05-22 | XMS | Encounter Summary ---
Demographics + + + | Address | [address] | | | [place] [address] | + + + | Home Phone [...] [place] | | | | | [address] | | + + + + + Care Team Providers + +------+ + | Care Human Insights Lead Ads Marketing Name | Role | Phone | [...] Closed | | Radiology | Diagnoses | [place], | | | | | | Thoracic or | Natalee L, | | | | | | lumbosacral | [address] | | | | | | neuritis or | [address] | | | | | | | [address] | | | | | | radiculitis, | [place], | | | | | | unspecified | [place] [address] | | | | | | | Phone: | | | | | | Degeneration | [phone] | | | | | | of lumbar | Fax: | | | | | | or | [phone] | | | | | | lumbosacral [...] + | 03/11/ | Hospital | [facility] | Natalee Andersen | Thoracic or | | 2013 | Encounter | MED CTR MRI [address] | L, [address] | lumbosacral neuritis | | | | [place], | [address] | or radiculitis, | | | | [place] [address] | [place] [address] | unspecified; | | | | [phone] | [phone] | Degeneration of | | | | [...] + + + +---------+ + + | Sit[place]-3 Fatty | Take 1,000 mg by | [...] encounter Miscellaneous Notes Miscellaneous - ONBASE SCAN [facility] - 03/20/2014 12:00 AM PDT [...] [place] | | | | | | [place] [address] | | | | | | [phone] | | | | | | | | +--------+ + + + + | 08/28/ | Office | Cardiology | Dora De La Torre | | | 2019 | Visit | | [address] | | | | | | [address] | | | | | | [place] [address] | | | | | | [phone] | | | | | | | [...] + | MISCELLANEOUS LAB | | | [phone] | + +---------+ + + | MISCELANIOUS LAB | | | [phone] | + +---------+ + + documented in this encounter Visit Diagnoses + + | Diagnosis | + + | Thoracic or lumbosacral neuritis or radiculitis, unspecified | + + | Degeneration of lumbar or lumbosacral intervertebral disc | + + documented in this encounter"
--- OUTSIDE RECORDS SUMMARY | ~2020-05-22 | XMS | Encounter Summary ---
Demographics + + + | Address | [address] | | | [place] [address] | + + + | Home Phone [...] [place] | | | | | [address] | | + + + + + Care Team Providers + +------+ + | Care Car Sweeper Name | Role | Phone | + +------+ + | Basim Bolaons MD | PCP | | + +------+ [...] + | 02/21/ | Refill | [facility] | Deon Gonzales | Medication Refill | | 2012 | | SLEEP DISORDER [address] | MD Laureano [address] | | | | | [address] [place] | [address] | | | | | [place] [address] | [place] [address] | | | | | [phone] | [phone] | | | | | | | [...] - 02/22/2013 9:32 [facility] documented in this encount er [...] [place] | | | | | | [place] [address] | | | | | | [phone] | | | | | | | | +--------+ + + + + | 08/28/ | Office | Cardiology | Dora De La Torre | | | 2020 | Visit | | [address] | | | | | | [address] | | | | | | [place] [address] | | | | | | [phone] | | | | | | | | +--------+ + + + + documented as of this encounter Visit Diagnoses + + | Diagnosis | + + | Obstructive sleep apnea (adult) (pediatric) - Primary | + + documented in this encounter"
--- OUTSIDE RECORDS SUMMARY | ~2020-05-22 | XMS | Encounter Summary ---
Demographics + + + | Address | [address] | | | [place] [address] | + + + | Home Phone [...] [place] | | | | | [address] | | + + + + + Care Team Providers + +------+ + | Care Marine Design Engineer Name | Role | Phone [...] | | | | | pain, | [place], [place] | | | | | | bilateral | [address] | | | | | | Degenerative | Phone: | | | | | | disc | [phone] | | | | | | disease, | Fax: | | | | | | lumbar | [phone] | | | | | | Spinal [...] [address] | [address] [place], [place] | (Primary Dx); Knee | | | | [place] | [address] | pain, bilateral; | | | | [address] | | DEGENERATIVE DISC | | | | [phone] | | DISEASE, LUMBAR | | | [...] | | | | | [place] [address] | | | | | | [phone] | | | | | | | | +--------+ + + + + | 08/28/ | Office | Cardiology | Dora De La Torre | | | 2020 | Visit | | [address] | | | | | | [address] | | | | | | [place] [address] | | | | | | [phone] | | | | | | | [...]
--- OUTSIDE RECORDS SUMMARY | ~2020-05-22 | XMS | Encounter Summary ---
Demographics + + + | Address | [address] | | | [place] [address] | + + + | Home Phone [...] [place] | | | | | [address] | | + + + + + Care Team Providers + +------+ + | Care Rayon Tester Name | Role | Phone | [...] + + | 07/19/ | Office | [facility] | Desiree Peterson DO | Syncope, unspecified | | 2019 | Visit | CARDIOLOGY [place] | [address] | syncope type | | | | [address] | [place], [place] | (Primary Dx); | | | | [address] | [address] | Essential | | | | [place] | | hypertension; | | | | [address] | | Irregular heartbeat | | | | [phone] | | | +--------+---------+ + + + [...] DO - 07/19/2019 10:[address] [facility] Cardiology Cardiology Follow Up Note Reason [...] rtake in exercise. 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 [...] by mouth daily. Blood Glucose Monitoring Suppl (SnapDash VERIO FLEX SYSTEM) w/Device KIT by Does not ap ply route. budesonide-formoterol (SYMBICORT) 160-4.5 MCG/ACT inhaler Inhale 2 puffs into the lungs 2 (two) times daily. Calcium Carbonate Antacid 1000 MG tablet Take 1,000 mg by mouth 3 (three) times daily. Cholecalciferol (VITAMIN D3) 88510 units CAPS Take by mouth once a [...] | | | | | [place] [address] | | | | | | [phone] | | | | | | | | +--------+ + + + + | 08/28/ | Office | Cardiology | Dora De La Torre | | | 2020 | Visit | | [address] | | | | | | [address] | | | | | | [place] [address] | | | | | | [phone] | | | | | | | [...]
--- OUTSIDE RECORDS SUMMARY | ~2020-05-22 | XMS | Encounter Summary ---
Demographics + + + | Address | [address] [facility] [address] | | | [place] [address] | + + + | Home Phone [...] [place] | | | | | [address] | | + + + + + Care Team Providers + +------+ + | Care Power Plant Manager Name | Role | Phone | [...] | | [address] | [place], [place] | | | | | [place], [place] | [address] | | | | | [address] | | | | | | [phone] | | | +--------+ + + + [...] [place] | | | | | | [place] [address] | | | | | | [phone] | | | | | | | | +--------+ + + + + | 08/28/ | Office | Cardiology | Dora De La Torre | | | 2019 | Visit | | [address] | | | | | | [address] | | | | | | [place] [address] | | | | | | [phone] | | | | | | | [...] 0.83 m/s | | | MV Dec Kinney: 2.85 m/s2 MV DecT: 282.89 ms MV E Teodoro: 0.80 | | | m/s MV E/A Ratio: 0.96 E/E' Sept: 12.59 E' Lat: 0.08 m/s | | | E' Sept: 0.06 m/s RAP: 10 mmHg RV S': 0.11 m/s RVSP: | | | 27.96 mmHg TR maxP.96 mmHg TR Vmax: 2.11 m/s | | | Road Passenger Firer: Authenticated by: Desiree Peterson MD Report Date/Time: | | | -- 89_[id number]_6:31:1 | | + + + + + [...] (A-L): 19.60 | | ml/m2LAAs A2C: 15.44 [id number] A-L A2C: 43.84 mlLAESV MOD A2C: 42.12 mlLALs A2C: | | 4.61 cmLAAs A4C: 14.18 [id number] A-L A4C: 38.73 mlLAESV MOD A4C: 37.04 mlLALs A4C: | | 4.41 cmRAAs: 12.15 [id number] A-L: 28.54 mlRAESV MOD: 28.66 mlRALs: 4.39 | | cmTAPSE: 2.42 cmAV Env.Ti: 293.94 msAV maxP.18 mmHgAV meanP.09 mmHgAV | | Vmax: 1.88 m/Eddie Vmean: 1.25 m/Eddie VTI: 36.84 cmAVA Vmax: 2.06 cm2AVA (VTI): | | 2.24 dj4ANKE Vmax: 0.00 cm2/m2AVAI (VTI): 0.00 cm2/m2LVOT Env.Ti: 299.59 msLVOT | | maxP.52 mmHgLVOT meanP.65 mmHgLVSI Dopp: 38.55 ml/m2LVSV Dopp: 82.89 | | mlLVOT Vmax: 1.27 m/sLVOT Vmean: 0.91 m/sLVOT VTI: 27.27 cmMV A Teodoro: 0.83 m/sMV | | Dec Kinney: 2.85 m/s2MV DecT: 282.89 msMV E Teodoro: 0.80 m/sMV E/A Ratio: 0.96E/E' | | Sept: 12.59E' Lat: 0.08 m/sE' Sept: 0.06 m/sRAP: 10 mmHgRV S': 0.11 m/sRVSP: | | 27.96 mmHgTR maxP.96 mmHgTR Vmax: 2.11 m/s Road Passenger Firer:Authenticated by: | | Desiree Peterson MDReport Date/Time: -- 50_[id number]_3:31:1 IMPRESSION: 1. Overall left | | ventricular [...] A Teodoro: 0.83 m/s | |MV Dec Kinney: 2.85 m/s2 | |MV DecT: 282.89 ms | |MV E Teodoro: 0.80 m/s | |MV E/A Ratio: 0.96 | |E/E' Sept: 12.59 | |E' Lat: 0.08 m/s | |E' Sept: 0.06 m/s | |RAP: 10 mmHg | |RV S': 0.11 m/s | |RVSP: 27.96 mmHg | |TR maxP.96 mmHg | |TR Vmax: 2.11 m/s | | | |Road Passenger Firer: | |Authenticated by: Desiree Peterson MD | |Report Date/Time: -- 03_[id number]_9:31:1 | | | |IMPRESSION: | |1. Overall [...]
--- OUTSIDE RECORDS SUMMARY | ~2020-05-22 | XMS | Encounter Summary ---
Demographics + + + | Address | [address] | | | [place] [address] | + + + | Home Phone [...] [place] | | | | | [address] | | + + + + + Care Team Providers + +------+ + | Care Metal Tile Setter Name | Role | Phone | [...] | 08/26/ | Refill | [facility] | Frandy Teresa, | Medication Refill | | 2013 | | NEUROSURGERY [address] | DO [address] | | | | | [address] [facility] | [address] [place], [place] | | | | | [place], [place] | [id number] | | | | | [address] | | | | | | [phone] | | | +--------+--------+ + + + [...] to notify that p rescription refill for [place] has been authorized. Informed about MRI results per MD results. Also notified about new medication neurontin. Pt verbalized understanding and will notify o ur office if her numbness to bilat feet (upper and lower) doesn't improve. Pt requested refi ll rx of [place] to be mailed via certified mail to her [place] address [place] [employer] y signed by Megan Schreiber, RN [...] PSTPt called to requesting medication refill of [place]. Pt c/o l ower back and left [...] [place] | | | | | | [place] [address] | | | | | | [phone] | | | | | | | | +--------+ + + + + | 08/28/ | Office | Cardiology | Dora De La Torre | | | 2019 | Visit | | [address] | | | | | | [address] | | | | | | [place] [address] | | | | | | [phone] | | | | | | | | +--------+ + + + + documented as of this encounter Visit Diagnoses Not on filedocumented in this encounter"
--- OUTSIDE RECORDS SUMMARY | ~2020-05-22 | XMS | Encounter Summary ---
Demographics + + + | Address | [address] | | | [place] [address] | + + + | Home Phone [...] [place] | | | | | [address] | | + + + + + Care Team Providers + +------+ + | Care Mill Washer Name | Role | Phone | [...] | 07/01/ | Telephone | [facility] | Frandy Teresa, | Other (Surgery ) | | 2013 | | NEUROSURGERY [address] | DO [address] | | | | | [address] | [address] [place], [place] | | | | | [place], [place] | [id number] | | | | | [address] | | | | | | [phone] | | | +--------+ + + + [...] [address] | | | | | | [place] [address] | | | | | | [phone] | | | | | | | | +--------+ + + + + | 08/28/ | Office | Cardiology | Dora De La Torre | | | 2019 | Visit | | [address] | | | | | | [address] | | | | | | [place] [address] | | | | | | [phone] | | | | | | | | +--------+ + + + + documented as of this encounter Visit Diagnoses Not on filedocumented in this encounter"
--- OUTSIDE RECORDS SUMMARY | ~2020-05-22 | XMS | Encounter Summary ---
Demographics + + + | Address | [address] | | | [place] [address] | + + + | Home Phone [...] [place], [place] | | | | | [address] | | + + + + + Care Team Providers + +------+ + | Care Molder Machine Tender Name | Role | Phone | + +------+ + PCP | Unavailable | + +------+ + Encounter Details +--------+ + + + + | Date | Type | Department | Care Team | Description | +--------+ + + + + | 12/27/ | Hospital | [facility] | | | | 1997 - | Encounter | MED CTR GENERIC PSY | | | | | | CONV DEPT [address] | | | | 01/01/ | | [place], | | | | 1997 | | [place] [address] | | | | | | [phone] | | | +--------+ + + + [...] [address] | | | | | | [place] [address] | | | | | | [phone] | | | | | | | | +--------+ + + + + | 08/28/ | Office | Cardiology | Dora De La Torre | | | 2019 | Visit | | [address] | | | | | | [address] | | | | | | [place] [address] | | | | | | [phone] | | | | | | | | +--------+ + + + + documented as of this encounter Visit Diagnoses Not on filedocumented in this encounter"
--- OUTSIDE RECORDS SUMMARY | ~2020-05-22 | XMS | Encounter Summary ---
Demographics + + + | Address | [address] | | | [place] [address] | + + + | Home Phone [...] [place], [place] | | | | | [address] | | + + + + + Care Team Providers + +------+ + | Care District Branch Manager Name | Role | Phone | [...] [address] | | | | | | [place], [place] | | | | | | [address] | | | | | | [phone] | | | +--------+ + + + [...] | | | | | [place] [address] | | | | | | [phone] | | | | | | | | +--------+ + + + + | 08/28/ | Office | Cardiology | Dora De La Torre | | | 2020 | Visit | | [address] | | | | | | [address] | | | | | | [place] [address] | | | | | | [phone] | | | | | | | | +--------+ + + + + documented as of this encounter Visit Diagnoses Not on filedocumented in this encounter
--- OUTSIDE RECORDS SUMMARY | ~2020-05-22 | XMS | Encounter Summary ---
Demographics + + + | Address | [address] [facility] [address] | | | [place] [address] | + + + | Home Phone [...] [place] | | | | | [address] | | + + + + + Care Team Providers + +------+ + | Care Customer Insight Analyst Name | Role | Phone | [...] + | 09/10/ | Documentati | [facility] | Katharine Moncada, | Other (urgent | | 2019 | on | CARDIOLOGY [place] | Technologist | report) | | | | [address] | | | | | | [place] | | | | | | [address] | | | | | | [phone] | | | +--------+ + + + [...] | | | | | [place] [address] | | | | | | [phone] | | | | | | | | +--------+ + + + + | 08/28/ | Office | Cardiology | Dora De La Torre | | | 2020 | Visit | | [address] | | | | | | [address] | | | | | | [place] [address] | | | | | | [phone] | | | | | | | | +--------+ + + + + documented as of this encounter Visit Diagnoses Not on filedocumented in this encounter"
--- OUTSIDE RECORDS SUMMARY | ~2020-05-22 | XMS | Encounter Summary ---
Demographics + + + | Address | [address] | | | [place] [address] | + + + | Home Phone [...] [place], [place] | | | | | [address] | | + + + + + Care Team Providers + +------+ + | Care Poem Writer Name | Role | Phone | [...] [place] | | | | | | [address] | | | | | | [phone] | | | +--------+ + + + [...] | | | | | [place] [address] | | | | | | [phone] | | | | | | | | +--------+ + + + + | 08/28/ | Office | Cardiology | Dora De La Torre | | | 2020 | Visit | | [address] | | | | | | [address] | | | | | | [place] [address] | | | | | | [phone] | | | | | | | | +--------+ + + + + documented as of this encounter Visit Diagnoses Not on filedocumented in this encounter"
--- OUTSIDE RECORDS SUMMARY | ~2020-05-22 | XMS | Encounter Summary ---
Demographics + + + | Address | [address] [facility] [address] | | | [place] [address] | + + + | Home Phone [...] [place], [place] | | | | | [address] | | + + + + + Care Team Providers + +------+ + | Care Script Worker Name | Role | Phone | [...] | | | | 1991 | | [place] [address] | | | | | | [phone] | | | +--------+ + + + [...] [address] | | | | | | [place] [address] | | | | | | [phone] | | | | | | | | +--------+ + + + + | 08/28/ | Office | Cardiology | Dora De La Torre | | | 2019 | Visit | | [address] | | | | | | [address] | | | | | | [place] [address] | | | | | | [phone] | | | | | | | | +--------+ + + + + documented as of this encounter Visit Diagnoses Not on filedocumented in this encounter"
--- OUTSIDE RECORDS SUMMARY | ~2020-05-22 | XMS | Encounter Summary ---
Demographics + + + | Address | [address] [facility] [address] | | | [place] [address] | + + + | Home Phone [...] [place], [place] | | | | | [address] | | + + + + + Care Team Providers + +------+ + | Care Lathe Spotter Name | Role | Phone | + +------+ + PCP | Unavailable | + +------+ + Encounter Details +--------+ + + + + | Date | Type | Department | Care Team | Description | +--------+ + + + + | 07/17/ | Hospital | [facility] | | | | 1997 - | Encounter | MED CTR GENERIC PSY | | | | | | CONV DEPT [address] | | | | 07/25/ | | Bertha [place], | | | | 1997 | | [place] [address] | | | | | | [phone] | | | +--------+ + + + [...] | | | | | [place] [address] | | | | | | [phone] | | | | | | | | +--------+ + + + + | 08/28/ | Office | Cardiology | Dora De La Torre | | | 2019 | Visit | | [address] | | | | | | [address] | | | | | | [place] [address] | | | | | | [phone] | | | | | | | | +--------+ + + + + documented as of this encounter Visit Diagnoses Not on filedocumented in this encounter"
--- OUTSIDE RECORDS SUMMARY | ~2020-05-22 | XMS | Encounter Summary ---
Demographics + + + | Address | [address] [facility] [address] [facility] [address] | | | [place] [address] | + + + | Home Phone [...] [place] | | | | | [address] | | + + + + + Care Team Providers + +------+ + | Care Plaster Mechanic Name | Role | Phone | [...] | | | | | | [place] [address] | | | | | | [phone] | | | | | | | [...] in | | | | | | [place] with a | | | | | [...] [facility] | | | | | [facility] | | | | | | Laboratory, [place], | | | | | | [place], [...] by | | | | | | qupuxsmwTwg-Wlt-J: | | | | | | Increased [...] istryMHC-1: | | | | | | UpqgfdeqRR40 stain | | | | | | [...] | [facility] | [address] | [place] [address] | | | PATHOLOGY | [place]EL[place] | | | + + + + + documented in this encounter Visit Diagnoses Not on filedocumented in this encounter
--- OUTSIDE RECORDS SUMMARY | ~2020-05-22 | XMS | Encounter Summary ---
Demographics + + + | Address | [address] [facility] [address] | | | [place] [address] | + + + | Home Phone [...] [place] | | | | | [address] | | + + + + + Care Team Providers + +------+ + | Care Skiver Hand Name | Role | Phone | [...] + + | 08/09/ | Clinical | [facility] | Desiree Peterson DO | Syncope, unspecified | | 2019 | Support | CARDIOLOGY [place] | [address] | syncope type | | | | [address] | [place], [place] | | | | | [place] [address] | [address] | | | | | [place] | | | | | | [address] | Dora De La Torre | | | | | [phone] | [address]OL[address] | | | | | | [address] | | | | | | [place] [address] | | | | | | [phone] | | | | | | | [...] [place] | | | | | | [place] [address] | | | | | | [phone] | | | | | | | | +--------+ + + + + | 08/28/ | Office | Cardiology | Dora De La Torre | | | 2019 | Visit | | [address] | | | | | | [address] | | | | | | [place] [address] | | | | | | [phone] | | | | | | | | +--------+ + + + + documented as of this encounter Visit Diagnoses + + | Diagnosis | + + | Syncope, unspecified syncope type | + + documented in this encounter"
--- OUTSIDE RECORDS SUMMARY | ~2020-05-22 | XMS | Encounter Summary ---
Demographics + + + | Address | [address] [facility] [address] | | | [place] [address] | + + + | Home Phone [...] [place] | | | | | [address] | | + + + + + Care Team Providers + +------+ + | Care Wood Cabinetmaker Name | Role | Phone | + +------+ + | Natalee Andersen NP | PCP | | + +------+ + Encounter Details +--------+ + + + + | Date | Type | Department | Care Team | Description | +--------+ + + + + | 09/27/ | Hospital | [facility] | Frandy Teresa, | Lumbar spondylosis; | | 2013 | Encounter | MED CTR XRAY [address] | DO [address] | S/P lumbar fusion | | | | [place] | [address] [place], [place] | | | | | [place] [address] | [address] | | | | | [phone] | | | +--------+ + + + [...] + + + +---------+ + + | Laredo-3 Fatty | Take 1,000 mg by | [...] [address] | | | | | | [place] [address] | | | | | | [phone] | | | | | | | | +--------+ + + + + | 08/28/ | Office | Cardiology | Dora De La Torre | | | 2019 | Visit | | [address] | | | | | | [address] | | | | | | [place] [address] | | | | | | [phone] | | | | | | | [...] + | MISCELLANEOUS LAB | | | [phone] | + +---------+ + + | MISCELANIOUS LAB | | | [phone] | + +---------+ + + documented in this encounter Visit Diagnoses + + | Diagnosis | + + | Lumbar spondylosis Lumbosacral spondylosis without myelopathy | + + | S/P lumbar fusion Arthrodesis status | + + documented in this encounter"
--- OUTSIDE RECORDS SUMMARY | ~2020-05-22 | XMS | Encounter Summary ---
Demographics + + + | Address | [address] [facility] [address] | | | [place] [address] | + + + | Home Phone [...] [place] | | | | | [address] | | + + + + + Care Team Providers + +------+ + | Care School Age Program Associate Name | Role | Phone | + +------+ + | Basim Bolanos MD | PCP | | + +------+ + Encounter Details +--------+ + + + + | Date | Type | Department | Care Team | Description | +--------+ + + + + | 04/18/ | Abstract | [facility] [place] | [facility] | | | 2012 | | GASTROENTEROLOGY | [place] [address] | | | | | [address] | [address] | | | | | [address] [place], [place] | [place], [place] | | | | | [address] | [address] | | | | | [phone] | | | +--------+ + + + [...] | | | | | [place] [address] | | | | | | [phone] | | | | | | | | +--------+ + + + + | 08/28/ | Office | Cardiology | Dora De La Torre | | | 2020 | Visit | | [address] | | | | | | [address] | | | | | | [place] [address] | | | | | | [phone] | | | | | | | | +--------+ + + + + documented as of this encounter Visit Diagnoses Not on filedocumented in this encounter"
--- OUTSIDE RECORDS SUMMARY | ~2020-05-22 | XMS | Encounter Summary ---
Demographics + + + | Address | [address] | | | [place] [address] | + + + | Home Phone [...] [place] | | | | | [address] | | + + + + + Care Team Providers + +------+ + | Care Store Deli Manager Name | Role | Phone [...] [address] | | | | | [address] [place], [place] | [place], [place] | | | | | [address] | [address] | | | | | [phone] | | | +--------+ + + + [...] | | | | | [place] [address] | | | | | | [phone] | | | | | | | | +--------+ + + + + | 08/28/ | Office | Cardiology | Dora De La Torre | | | 2019 | Visit | | [address] | | | | | | [address] | | | | | | [place] [address] | | | | | | [phone] | | | | | | | | +--------+ + + + + documented as of this encounter Visit Diagnoses Not on filedocumented in this encounter"
--- OUTSIDE RECORDS SUMMARY | ~2020-05-22 | XMS | Encounter Summary ---
Demographics + + + | Address | [address] | | | [place] [address] | + + + | Home Phone [...] [place] | | | | | [address] | | + + + + + Care Team Providers + +------+ + | Care Director Plans Name | Role | Phone | + [...] | | | | | ECHO | [place], [place] | | | | | | Complete | [address] | | | | | | | Phone: | | | | | | | [phone] | | | | | | | Fax: | | | | | | | [phone] | | + +--------+ + + + + Reason for Visit + + + | Reason | Comments | + + + | Follow-up | 6 month | + + + Encounter Details +--------+---------+ + + + | Date | Type | Department | Care Team | Description | +--------+---------+ + + + | 04/03/ | Office | [facility] | Desiree Peterson DO | Left bundle branch | | 2020 | Visit | CARDIOLOGY [place] | [address] | block (Primary Dx); | | | | [address] | [place], [place] | Benign essential | | | | [address] | [address] | HTN; New onset left | | | | [place], [place] | | bundle branch block | | | | [address] | | (LBBB); Obesity, | | | | [phone] | | Class III, BMI | | | | | | 40-49.9 (morbid | | | | | | obesity) ([facility]); | | | | | | History [...] Peterson DO - 04/03/2020 10:20 AM PDT [facility] Cardiology Cardiology Follow Up Note Reason for [...] rtake in exercise. She recently got a [employer] and has been walking him more regularly. 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 Blood Glucose Monitoring Suppl (Powermat TechnologiesIO FLEX SYSTEM) w/Device KIT by Does not ap ply route. budesonide-formoterol (SYMBICORT) 160-4.5 MCG/ACT inhaler Inhale 2 puffs into the lungs 2 (two) times daily. Calcium Carbonate Antacid 1000 MG tablet Take 1,000 mg by mouth 3 (three) times daily. Cholecalciferol (VITAMIN D3) 00683 units CAPS Take by mouth once a [...] ALT 76, alkaline phosphatase 134. Labs: 10/20/2019:( [facility] ER) CBC: WBC 7.1, RBC 4.93, [...] | | 2019 | visit | | [address]OL[address]IE [address] | | | | | | [address] | | | | | | [place] [address] | | | | | | [phone] | | | | | | | | +--------+ + + + + | 08/28/ | Office | Cardiology | Dora De La Torre | | | 2020 | Visit | | [address] | | | | | | [address] | | | | | | [place] [address] | | | | | | [phone] | | | | | | | [...]
--- OUTSIDE RECORDS SUMMARY | ~2020-05-22 | XMS | Encounter Summary ---
Demographics + + + | Address | [address] | | | [place] [address] | + + + | Home Phone [...] + | Araceli Sibley | ECON | [place] | | | | | [address] | | + + + + + Care Team Providers + +------+ + | Care Staff Genetic Counselor Name | Role | Phone | [...] + + | 05/19/ | Telephone | [facility] | Britt Dora | Other (Cancel | | 2020 | | CARDIOLOGY [place] | [address] | appointment) | | | | [address] | [address] | | | | | [address] | [place] [address] | | | | | [place], [place] | [phone] | | | | | [address] | | | | | | [phone] | | | +--------+ + + + [...] - 05/19/2020 10:42 AM [facility]alled [facility] hospital follow up visit with [...] [address] | | | | | | [place] [address] | | | | | | [phone] | | | | | | | | +--------+ + + + + | 08/28/ | Office | Cardiology | StefanielarryDora | | 2019 | Visit | | [address] | | | | | | [address] | | | | | | [place] [address] | | | | | | [phone] | | | | | | | | +--------+ + + + + documented as of this encounter Visit Diagnoses Not on filedocumented in this encounter"
--- OUTSIDE RECORDS SUMMARY | ~2020-05-22 | XMS | Encounter Summary ---
Demographics + + + | Address | [address] | | | [place] [address] | + + + | Home Phone [...] [place] | | | | | [address] | | + + + + + Care Team Providers + +------+ + | Care Bareback Rider Name | Role | Phone | [...] + + | 10/23/ | Telephone | [facility] | Ashley Chávez | Other (Patient | | 2019 | | CARDIOLOGY [place] | Pollo, Instructional Media Services Technician | called about | | | | [address] | | metoprolol. ) | | | | [place], [place] | | | | | | [address] | | | | | | [phone] | | | +--------+ + + + [...] Miscellaneous Notes Telephone Encounter - Ashley Chávez, Instructional Media Services Technician - [facility]/23/2019 10:49 [facility] [...] her back when I have her recommendations. JDW:RFID [email or web address]. [facility] umented in this encounter Plan of [...] [address] | | | | | | [place] [address] | | | | | | [phone] | | | | | | | | +--------+ + + + + | 08/28/ | Office | Cardiology | StefanielarryDora | | 2019 | Visit | | [address] | | | | | | [address] | | | | | | [place] [address] | | | | | | [phone] | | | | | | | | +--------+ + + + + documented as of this encounter Visit Diagnoses Not on filedocumented in this encounter"
--- OUTSIDE RECORDS SUMMARY | ~2020-05-22 | XMS | Encounter Summary ---
Demographics + + + | Address | [address] | | | [place] [address] | + + + | Home Phone [...] [place] | | | | | [address] | | + + + + + Care Team Providers + +------+ + | Care Director Of Community Services Name | Role | Phone | [...] [address] | [address] [place], [place] | | | | | [place], [place] | [address] | | | | | [address] | | | | | | [phone] | | | +--------+ + + + [...] [address] | | | | | | [place] [address] | | | | | | [phone] | | | | | | | | +--------+ + + + + | 08/28/ | Office | Cardiology | Dora De La Torre | | | 2020 | Visit | | [address] | | | | | | [address] | | | | | | [place] [address] | | | | | | [phone] | | | | | | | [...] + | MISCELLANEOUS LAB | | | [phone] | + +---------+ + + | MISCELANIOUS LAB | | | [phone] | + +---------+ + + documented in this encounter Visit Diagnoses + + | Diagnosis | + + | Back pain - Primary Backache, unspecified | + + documented in this encounter"
--- OUTSIDE RECORDS SUMMARY | ~2020-05-22 | XMS | Encounter Summary ---
Demographics + + + | Address | [address] | | | [place] [address] | + + + | Home Phone [...] [place] | | | | | [address] | | + + + + + Care Team Providers + +------+ + | Care Aviculturist Name | Role | Phone | + [...] 08/15/ | Documentati | [facility] | Katharine Moncada, | Other (urgent | | 2019 | on | CARDIOLOGY [place] | Technologist | report) | | | | [address] | | | | | | [place] | | | | | | [address] | | | | | | [phone] | | | +--------+ + + + [...] | | | | | [place] [address] | | | | | | [phone] | | | | | | | | +--------+ + + + + | 08/28/ | Office | Cardiology | Dora De La Torre | | | 2020 | Visit | | [address] | | | | | | [address] | | | | | | [place] [address] | | | | | | [phone] | | | | | | | | +--------+ + + + + documented as of this encounter Visit Diagnoses Not on filedocumented in this encounter"
--- OUTSIDE RECORDS SUMMARY | ~2020-05-22 | XMS | Clinical Summary ---
Demographics + + + | Address | [address] | | | [place] [address] | + + + | Home Phone [...] [place] | | | | | [address] | | + + + + + Care Team Providers + +------+ + | Care Advertiser Name | Role | Phone | + [...] | | | | e | | (OWM VERIO FLEX | | | | | [...] A-fib | | | | | | ([facility]); Mild | | | | | | hyperlipidemia; | | | | | | Benign essential | | | | | | HTN; Poorly | | | | | | controlled type 2 | | | | | | diabetes mellitus | | | | | | ([facility]); Syncope, | | | | [...] | | | | | | type ([facility]); Rapid | | | | [...] | | | | | [place] [address] | | | | | | [phone] | | | | | | | | +--------+ + + + + | 08/28/ | Office | Cardiology | Dora De La Torre | | | 2020 | Visit | | [address] | | | | | | [address] | | | | | | [place] [address] | | | | | | [phone] | | | | | | | [...] | [employer] - | | 04/02/ | [id number] | | 5ccImplanted: Qty: 1 on | | Spine | MEDT | | 2019 | | | 07/02/2014 by Frandy Teresa | | Lumbar | | | | /[id number] | | A DO at [facility] | | | | | | 6-020 | | [facility] | | | | | | / | + +------+--------+ +--------+--------+--------+ | Graft Infuse Bone Kit Xxs - | | N/A: | SOFAMOR | | 01/21/ | [id number] | | [id number]: Qty: 1 on | | Spine | DANEK - DIV | | 2014 | 0 / | | 07/02/2014 by Frandy Teresa | | Lumbar | [employer] | | | /[id number] | | A, DO at [facility] | | | - SFDK | | | 06AAH | | [facility] | | | | | | | + +------+--------+ +--------+--------+--------+ | Imp Spn Spcr Cpstn 8x26mm - | | N/A: | SOFAMOR | | 01/11/ | [id number] | | [id number]: Qty: 1 on | | Spine | DANEK - DIV | | 2 | 6 / | | 07/02/2014 by Frandy Teresa | | Lumbar | [employer] | | | /[id number] | | DO Ronak at [facility] | | | - SFDK | | | 928 | | [facility] | | | | | | | + +------+--------+ +--------+--------+--------+ | Set Scrw Ns G5 Brk Off Ti | | N/A: | SOFAMOR | | | [id number] | | 4.75 - [id number]: | | Spine | DANEK - DIV | | | 0 / / | | Qty: 4 on 07/02/2014 by | | Lumbar | [employer] | | | | | Frandy Teresa DO at [facility] | | | - SFDK | | | | | [facility] | | | | | | | | [place] | | | | | | | + +------+--------+ +--------+--------+--------+ | RodImplanted: Qty: 1 on | | N/A: | | | | [id number] | | 07/02/2014 by Frandy Teresa | | Spine | | | | 540 / | | A, DO at [facility] | | Lumbar | | | | / | | [facility] | | | | | | | + +------+--------+ +--------+--------+--------+ | RodImplanted: Qty: 1 on | | N/A: | MEDTROL - | | | [id number] | | 07/02/2014 by Frandy Teresa | | Spine | MDTR | | | 545 / | | A, DO at [facility] | | Lumbar | | | | / | | [facility] | | | | | | | + +------+--------+ +--------+--------+--------+ | Screw 7.5x50mm Sextant - | | N/A: | [employer]IC - | | | [id number] | | [id number]: Qty: 1 on | | Spine | MEDT | | | [id number] | | 07/02/2014 by Frandy Teresa | | Lumbar | | | | / / | | A, DO at [facility] | | | | | | | | [facility] | | | | | | | + +------+--------+ +--------+--------+--------+ | Cannulated ScrewImplanted: | | N/A: | MEDTROL - | | | [id number] | | Qty: 1 on 07/02/2014 by | | Spine | MDTR | | | [id number] | | Frandy Teresa DO at [facility] | | Lumbar | | | | / / | | [facility] | | | | | | | | CENTER | | | | | | | + +------+--------+ +--------+--------+--------+ | Cannulated ScrewImplanted: | | N/A: | MEDTRONIC - | | | [id number] | | Qty: 1 on 07/02/2014 by | | Spine | MEDT | | | 11045 | | Frandy Teresa DO at [facility] | | Lumbar | | | | / / | | [facility] | | | | | | [...] | | | | | BRETT DONNELLY (9100) on | | | | | | [...] +--------+ +---------+--------+ | MEDICARE | MEDICA | [id number] | 02/22/20 | [phone] | | Medica | | | RE | | 09-Pre | 5 | | re | | | PART A | | sent | | | | | | AND B | | | | | | + +--------+ +--------+ +---------+--------+ | MEDICARE | MEDICA | [id number] | 02/22/20 | [phone] | | Medica [...] [place] | | | 1 (Home) | [address] | + +--------+ +--------+ + + | Cindy Arndt | Person | Self | [birth year] | [address] | | | al/Fam | | 1955 | [phone] | [address] [place], [place] | | | [place] | | | 1 (Home) | [address] | + +--------+ +--------+ + + Advance Directives + + + + + | Type | Date Recorded | Patient | Explanation | | | | Cable Weaver | | + + + + + | Power of | | | | | Organ Installer | | | | + + + [...]
--- OUTSIDE RECORDS SUMMARY | ~2020-05-22 | XMS | Encounter Summary ---
Demographics + + + | Address | [address] | | | [place] [address] | + + + | Home Phone [...] [place] | | | | | [address] | | + + + + + Care Team Providers + +------+ + | Care Cylinder Inspector Name | Role | Phone | [...] [address] | [address] [place], [place] | Hypothyroidism; | | | | [place], [place] | [address] | GERD; BACK PAIN, | | | | [address] | | LUMBAR, WITH | | | | [phone] | | RADICULOPATHY; | | | | [...] | | | | | [place] [address] | | | | | | [phone] | | | | | | | | +--------+ + + + + | 08/28/ | Office | Cardiology | Dora De La Torre | | | 2019 | Visit | | [address] | | | | | | [address] | | | | | | [place] [address] | | | | | | [phone] | | | | | | | [...]
--- OUTSIDE RECORDS SUMMARY | ~2020-05-22 | XMS | Encounter Summary ---
Demographics + + + | Address | [address] | | | [place] [address] | + + + | Home Phone [...] [place] | | | | | [address] | | + + + + + Care Team Providers + +------+ + | Care Engineering Clerk Name | Role | Phone | [...] [place] | | | | | | [address] | | | | | | [phone] | | | +--------+ + + + [...] | | | | | [place] [address] | | | | | | [phone] | | | | | | | | +--------+ + + + + | 08/28/ | Office | Cardiology | Dora De La Torre | | | 2020 | Visit | | [address] | | | | | | [address] | | | | | | [place] [address] | | | | | | [phone] | | | | | | | | +--------+ + + + + documented as of this encounter Visit Diagnoses Not on filedocumented in this encounter"
--- OUTSIDE RECORDS SUMMARY | ~2020-05-22 | XMS | Encounter Summary ---
Demographics + + + | Address | [address] | | | [place] [address] | + + + | Home Phone [...] [place] | | | | | [address] | | + + + + + Care Team Providers + +------+ + | Care Container Coordinator Name | Role | Phone | [...] + + | 08/08/ | Telephone | [facility] | Ashley Chávez | Other (Questions | | 2019 | | CARDIOLOGY [place] Abad, Alternative Financing Specialist | about coverage. ) | | | | [address] | | | | | | [place] | | | | | | [address] | | | | | | [phone] | | | +--------+ + + + [...] Miscellaneous Notes Telephone Encounter - Ashley Chávez, Alternative Financing Specialist - 08/08/2019 10:58 AM Seferino foster called and wanted to know if her monitor needed to be AUTHORIZED. I asked Danelle and she said that because she had medicare part A and B, it does not need kayode or auth. I told this information to the patient, patient stated understanding. JKASSIE:CENTRAL AISLE CASHIER-AAMA. [facility] umphilipp in this encounter Plan of [...] [address] | | | | | | [place] [address] | | | | | | [phone] | | | | | | | | +--------+ + + + + | 08/28/ | Office | Cardiology | Dora De La Torre | | | 2019 | Visit | | [address] | | | | | | [address] | | | | | | [place] [address] | | | | | | [phone] | | | | | | | | +--------+ + + + + documented as of this encounter Visit Diagnoses Not on filedocumented in this encounter"
--- OUTSIDE RECORDS SUMMARY | ~2020-05-22 | XMS | Encounter Summary ---
Demographics + + + | Address | [address] | | | [place] [address] | + + + | Home Phone [...] [place] | | | | | [address] | | + + + + + Care Team Providers + +------+ + | Care Petroleum Engineering Teacher Name | Role | Phone | [...] [id number] | | | | | | [place], [place] | | | | | | [address] | | | | | | [phone] | | | +--------+ + + + [...] [facility] | [address] | [place] [address] | | | PATHOLOGY | [address] [...] Re | | | | | | [address] | | | | + + + + + + + + | Specimen | + + | | + + + + + + + | Performing | Address | City/State/Zipcode | Phone Number | | Organization | | | | + + + + + | [facility] | [address] | [place] [address] | | | PATHOLOGY | [address] [...] Re | | | | | | [address] | | | | + + + + + + + + | Specimen | + + | | + + + + + + + | Performing | Address | City/State/Zipcode | Phone Number | | Organization | | | | + + + + + | [facility] | [address] | [place] [address] | | | PATHOLOGY | [address] [...] Re | | | | | | [address] | | | | + + + + + + + + | Specimen | + + | | + + + + + + + | Performing | Address | City/State/Zipcode | Phone Number | | Organization | | | | + + + + + | [facility] | [address] | [place] [address] | | | PATHOLOGY | [address] [...] Re | | | | | | [address] | | | | + + + + + + + + | Specimen | + + | | + + + + + + + | Performing | Address | City/State/Zipcode | Phone Number | | Organization | | | | + + + + + | [facility] | [address] | [place] [address] | | | PATHOLOGY | [address] | | | + + + + + documented in this encounter Visit Diagnoses Not on filedocumented in this encounter"
--- OUTSIDE RECORDS SUMMARY | ~2020-05-22 | XMS | Encounter Summary ---
Demographics + + + | Address | [address] | | | [place] [address] | + + + | Home Phone [...] [place], [place] | | | | | [address] | | + + + + + Care Team Providers + +------+ + | Care Clinical Laboratory Technologist Name | Role | Phone | + +------+ + PCP | Unavailable | + +------+ + Encounter Details +--------+ + + + + | Date | Type | Department | Care Team | Description | +--------+ + + + + | 02/24/ | Hospital | [facility] | | | | 1997 | Encounter | MED CTR EMERGENCY | | | | | | [address] | | | | | | [place] | | | | | | [address] | | | | | | [phone] | | | +--------+ + + + [...] | | | | | [place] [address] | | | | | | [phone] | | | | | | | | +--------+ + + + + | 08/28/ | Office | Cardiology | Dora De La Torre | | | 2020 | Visit | | [address] | | | | | | [address] | | | | | | [place] [address] | | | | | | [phone] | | | | | | | | +--------+ + + + + documented as of this encounter Visit Diagnoses Not on filedocumented in this encounter"
--- OUTSIDE RECORDS SUMMARY | ~2020-05-22 | XMS | Encounter Summary ---
Demographics + + + | Address | [address] | | | [place] [address] | + + + | Home Phone [...] [place] | | | | | [address] | | + + + + + Care Team Providers + +------+ + | Care Crop Roller Name | Role | Phone | [...] [address] | | | | | [address] [place], [place] | [place], [place] | | | | | [address] | [address] | | | | | [phone] | | | +--------+ + + + [...] | | | | | [place] [address] | | | | | | [phone] | | | | | | | | +--------+ + + + + | 08/28/ | Office | Cardiology | Dora De La Torre | | | 2019 | Visit | | [address] | | | | | | [address] | | | | | | [place] [address] | | | | | | [phone] | | | | | | | | +--------+ + + + + documented as of this encounter Visit Diagnoses Not on filedocumented in this encounter"
--- OUTSIDE RECORDS SUMMARY | ~2020-05-22 | XMS | Encounter Summary ---
Demographics + + + | Address | [address] | | | [place] [address] | + + + | Home Phone [...] [place] | | | | | [address] | | + + + + + Care Team Providers + +------+ + | Care Professor Of Voice Name | Role | Phone | + [...] | | | | | [address] [facility] [address] | [place] [address] | | | | | [place] | [phone] | | | | | [address] | | | | | | [phone] | | | +--------+ + + + [...] Percocet prescription and faxed it to them ([facility]) this morning like I told them I would. Thank you for doing that, but it should not have been necessary. Telephone Encounter - Lincoln Cheema MD - 07/06/2014 8:59 PM PDTCalled regarding increased p ain. She was taking percocet. She was discharged to a [facility] on hydrocodone. I talked to [...] | | | | | [place] [address] | | | | | | [phone] | | | | | | | | +--------+ + + + + | 08/28/ | Office | Cardiology | Dora De La Torre | | | 2019 | Visit | | [address] | | | | | | [address] | | | | | | [place] [address] | | | | | | [phone] | | | | | | | | +--------+ + + + + documented as of this encounter Visit Diagnoses Not on filedocumented in this encounter"
--- OUTSIDE RECORDS SUMMARY | ~2020-05-22 | XMS | Encounter Summary ---
Demographics + + + | Address | [address] | | | [place] [address] | + + + | Home Phone [...] [place], [place] | | | | | [address] | | + + + + + Care Team Providers + +------+ + | Care Boiler Fitter Name | Role | Phone | + +------+ + PCP | Unavailable | + +------+ + Encounter Details +--------+ + + + + | Date | Type | Department | Care Team | Description | +--------+ + + + + | 06/07/ | Hospital | [facility] | | | | 1991 - | Encounter | MED CTR GENERIC OP | | | | | | CONV DEPT [address] | | | | 10/07/ | | [place], | | | | 1991 | | [place] [address] | | | | | | [phone] | | | +--------+ + + + [...] [address] | | | | | | [place] [address] | | | | | | [phone] | | | | | | | | +--------+ + + + + | 08/28/ | Office | Cardiology | Dora De La Torre | | | 2019 | Visit | | [address] | | | | | | [address] | | | | | | [place] [address] | | | | | | [phone] | | | | | | | | +--------+ + + + + documented as of this encounter Visit Diagnoses Not on filedocumented in this encounter"
--- OUTSIDE RECORDS SUMMARY | ~2020-05-22 | XMS | Encounter Summary ---
Demographics + + + | Address | [address] | | | [place] [address] | + + + | Home Phone [...] [place], [place] | | | | | [address] | | + + + + + Care Team Providers + +------+ + | Care Marine Mechanic Name | Role | Phone | + +------+ + PCP | Unavailable | + +------+ + Encounter Details +--------+ + + + + | Date | Type | Department | Care Team | Description | +--------+ + + + + | 01/16/ | Hospital | [facility] | | | | 2002 | Encounter | MED CTR XRAY [address] | | | | | | [place] | | | | | | [place] [address] | | | | | | [phone] | | | +--------+ + + + [...] | | | | | [place] [address] | | | | | | [phone] | | | | | | | | +--------+ + + + + | 08/28/ | Office | Cardiology | Dora De La Torre | | | 2019 | Visit | | [address] | | | | | | [address] | | | | | | [place] [address] | | | | | | [phone] | | | | | | | | +--------+ + + + + documented as of this encounter Visit Diagnoses Not on filedocumented in this encounter"
--- OUTSIDE RECORDS SUMMARY | ~2020-05-22 | XMS | Encounter Summary ---
Demographics + + + | Address | [address] | | | [place] [address] | + + + | Home Phone [...] [place] | | | | | [address] | | + + + + + Care Team Providers + +------+ + | Care Dairy Nutrition Consultant Name | Role | Phone | [...] + | 06/26/ | Telephone | [facility] | Frandy Teresa, | Other | | 2013 | | NEUROSURGERY [address] | DO [address] | | | | | [address] | [address], [place] | | | | | [place], [place] | [id number] | | | | | [address] | | | | | | [phone] | | | +--------+ + + + [...] [address] | | | | | | [place] [address] | | | | | | [phone] | | | | | | | | +--------+ + + + + | 08/28/ | Office | Cardiology | Dora De La Torre | | | 2019 | Visit | | [address] | | | | | | [address] | | | | | | [place] [address] | | | | | | [phone] | | | | | | | | +--------+ + + + + documented as of this encounter Visit Diagnoses Not on filedocumented in this encounter"
--- OUTSIDE RECORDS SUMMARY | ~2020-05-22 | XMS | Encounter Summary ---
Demographics + + + | Address | [address] | | | [place] [address] | + + + | Home Phone [...] [place], [place] | | | | | [address] | | + + + + + Care Team Providers + +------+ + | Care Vp Director Of Creative Strategy Name | Role | Phone | + +------+ + PCP | Unavailable | + +------+ + Encounter Details +--------+ + + + + | Date | Type | Department | Care Team | Description | +--------+ + + + + | 02/16/ | Hospital | [facility] | | | | 1994 | Encounter | MED CTR LABORATORY | | | | | | [address] | | | | | | [place] | | | | | | [address] | | | | | | [phone] | | | +--------+ + + + [...] | | | | | [place] [address] | | | | | | [phone] | | | | | | | | +--------+ + + + + | 08/28/ | Office | Cardiology | Dora De La Torre | | | 2020 | Visit | | [address] | | | | | | [address] | | | | | | [place] [address] | | | | | | [phone] | | | | | | | | +--------+ + + + + documented as of this encounter Visit Diagnoses Not on filedocumented in this encounter"
--- OUTSIDE RECORDS SUMMARY | ~2020-05-22 | XMS | Encounter Summary ---
Demographics + + + | Address | [address] | | | [place] [address] | + + + | Home Phone [...] [place], [place] | | | | | [address] | | + + + + + Care Team Providers + +------+ + | Care Certified Credit Counselor Name | Role | Phone | + +------+ + PCP | Unavailable | + +------+ + Encounter Details +--------+ + + + + | Date | Type | Department | Care Team | Description | +--------+ + + + + | 04/01/ | Hospital | [facility] | | | | 1998 | Encounter | MED CTR XRAY [address] | | | [address] | | | | | | [place] [address] | | | | | | [phone] | | | +--------+ + + + [...] | | | | | [place] [address] | | | | | | [phone] | | | | | | | | +--------+ + + + + | 08/28/ | Office | Cardiology | Dora De La Torre | | | 2019 | Visit | | [address] | | | | | | [address] | | | | | | [place] [address] | | | | | | [phone] | | | | | | | | +--------+ + + + + documented as of this encounter Visit Diagnoses Not on filedocumented in this encounter"
--- OUTSIDE RECORDS SUMMARY | ~2020-05-22 | XMS | Encounter Summary ---
Demographics + + + | Address | [address] | | | [place] [address] | + + + | Home Phone [...] [place], [place] | | | | | [address] | | + + + + + Care Team Providers + +------+ + | Care Torch Solderer Name | Role | Phone | [...] | | | | | | [address] [facility] | | | | | | [place], [place] | | | | | | [address] | | | | | | [phone] | | | +--------+ + + + [...] | | | | | [place] [address] | | | | | | [phone] | | | | | | | | +--------+ + + + + | 08/28/ | Office | Cardiology | Dora De La Torre | | | 2020 | Visit | | [address] | | | | | | [place] | | | | | | [place] [address] | | | | | | [phone] | | | | | | | | +--------+ + + + + documented as of this encounter Visit Diagnoses Not on filedocumented in this encounter"
--- OUTSIDE RECORDS SUMMARY | ~2020-05-22 | XMS | Encounter Summary ---
Demographics + + + | Address | [address] | | | [place] [address] | + + + | Home Phone [...] [place] | | | | | [address] | | + + + + + Care Team Providers + +------+ + | Care B2B Sales Executive Name | Role | Phone [...] | | Required | | branch | NEWSPAPER PUBLISHER [address] | [address] | | | | | block | [address] | [place] | | | | | Paroxysmal | [address] | SRI [address] | | | | | A-fib ([facility]) | [place], [place] | [address] [facility] | | | | | | [address] | [place], [place] | | | | | Schizoaffect | Phone: | [phone] Phone: | | | | | chris | [phone] | [phone] | | | | | disorder, | Fax: | Fax: | | | | | bipolar type | [phone] | [phone] | | | | | (HCC) | [...] + + | 04/24/ | Office | [facility] | Dora De La Torre | Left bundle branch | | 2020 | Visit | CARDIOLOGY [place] | [address] | block (Primary Dx); | | | | [address] | [address] | Paroxysmal A-fib | | | | [address] | [place] [address] | ([facility]); Mild | | | | [place], [place] | [phone] | hyperlipidemia; | | | | [address] | | Benign essential | | | | [phone] | | HTN; Poorly | | | [...] have referred you to Dr. Osuna at [facility] , call [phone] for an appo intment next week as [...] patient of , who is her primary medical record transcriber, and last seen by her on 08/2020. [...] also resol shelly with weight loss Her QTA0DN6 VASC score is 4 (stroke, HTN, gender) [...] She has previously seen Dr. Garland in [place], and different sleep provider in [facility] when lived over there. She previously [...] PCP, or get a referral to an it risk and assurance manager to get her blood sugars better controlled, [...] thirst or hunger. Psychiatric/Behavioral: Bipolar/Schizophrenia. Tx'd by [employer] Vaccines: Current on flu vaccine: 2019 Current on pneumonia vaccine:PPSV 23 05/29/2013 Habits/Social : Denies history of smoking. Denies EtOH use. Denies recreational or illici t drug use. Exercises sporadically. Lives in [place] . Outpatient Medications Prior to Visit Medication [...] chest discomfort, [facility] Resting EKG normal sinus rhythm, arrhythmias [...] except tricyclics. Thyroid: TSH 3.39. Labs: 04/20/2020: ([facility]). CMP: Sodium 130, potassium 4.1, [...] admission and overnight teleme try stay at [facility] for syncopal episode with extremely elevated glucose levels of 404, with hemoglobin A1c of 15.2. She has problems as detailed below. As discussed in HPI, she did not have any arrhythmias [facility], and her EKG performed the [...] report. I have referred her to the [facility] sleep disorders clinic for further evaluation [...] notes for continuity of care purp kavon [facility] SUPPORT SPECIALIST [facility]2020 Laurie vivar in this encounter Plan of Treatment +--------+ + + + + | Date | Type | Specialty | Care Team | Description | +--------+ + + + + | 05/29/ | Procedure | Cardiology | Dora De La Torer | | 2019 | visit | | [address] | | | | | | [address] [address] | | | | | | [place] [address] | | | | | | [phone] | | | | | | | | +--------+ + + + + | 08/28/ | Office | Cardiology | Dora De La Torre | | 2019 | Visit | | [address] | | | | | | [address] | | | | | | [place] [address] | | | | | | [phone] | | | | | | | [...]
--- OUTSIDE RECORDS SUMMARY | ~2020-05-22 | XMS | Encounter Summary ---
Demographics + + + | Address | [address] | | | [place] [address] | + + + | Home Phone [...] [place] | | | | | [address] | | + + + + + Care Team Providers + +------+ + | Care Outreach Manager Name | Role | Phone | [...] + | 05/13/ | Telephone | [facility] | Frandy Teresa, | Other | | 2013 | | NEUROSURGERY [address] | DO [address] | | | | | [address] | [address] [place], [place] | | | | | [place], [place] | [id number] | | | | | [address] | | | | | | [phone] | | | +--------+ + + + [...] [address] | | | | | | [place] [address] | | | | | | [phone] | | | | | | | | +--------+ + + + + | 08/28/ | Office | Cardiology | Dora De La Torre | | | 2019 | Visit | | [address] | | | | | | [place] | | | | | | [place] [address] | | | | | | [phone] | | | | | | | | +--------+ + + + + documented as of this encounter Visit Diagnoses Not on filedocumented in this encounter"
--- OUTSIDE RECORDS SUMMARY | ~2020-05-22 | XMS | Encounter Summary ---
Demographics + + + | Address | [address] [facility] [address] [address] | | | [place] [address] | + + + | Home Phone [...] [place] | | | | | [address] | | + + + + + Care Team Providers + +------+ + | Care Music Promoter Name | Role | Phone | + [...] | Transcriptions | + + | Interface, Sewing Machine Mechanic In - 11/04/2006 3:03 AM PST | | [address] | | [place], [place] [address] [facility] [...] skin retractor was put in place. The [place] elevators wereused to separate the | | [...]
--- OUTSIDE RECORDS SUMMARY | ~2020-05-22 | XMS | Encounter Summary ---
Demographics + + + | Address | [address] | | | [place] [address] | + + + | Home Phone [...] [place] | | | | | [address] | | + + + + + Care Team Providers + +------+ + | Care Water Purifier Operator Name | Role | Phone | [...] | | | | [address], | address | | | | | [address] [place] | | | | | | [place] [address] | | | | | | [phone] | | | +--------+ + + + [...] | | | | | [place] [address] | | | | | | [phone] | | | | | | | | +--------+ + + + + | 08/28/ | Office | Cardiology | Dora De La Torre | | | 2019 | Visit | | [address] | | | | | | [address] | | | | | | [place] [address] | | | | | | [phone] | | | | | | | | +--------+ + + + + documented as of this encounter Visit Diagnoses Not on filedocumented in this encounter"
--- OUTSIDE RECORDS SUMMARY | ~2020-05-22 | XMS | Encounter Summary ---
Demographics + + + | Address | [address] [facility] [address] | | | [place] [address] | + + + | Home Phone [...] [place] | | | | | [address] | | + + + + + Care Team Providers + +------+ + | Care Evidence Specialist Name | Role | Phone | [...] | | | [address] | [place] [address] | | | | | [place] [address] | | | | | | [phone] | | | +--------+ + + + [...] [address] | | | | | | [place] [address] | | | | | | [phone] | | | | | | | | +--------+ + + + + | 08/28/ | Office | Cardiology | Dora De La Torre | | | 2019 | Visit | | [address] | | | | | | [address] | | | | | | [place] [address] | | | | | | [phone] | | | | | | | [...]
--- OUTSIDE RECORDS SUMMARY | ~2020-05-22 | XMS | Encounter Summary ---
Demographics + + + | Address | [address] | | | [place] [address] | + + + | Home Phone [...] [place], [place] | | | | | [address] | | + + + + + Care Team Providers + +------+ + | Care Government Affairs Fellow Name | Role | Phone | [...] | | | | 1993 | | [place] [address] | | | | | | [phone] | | | +--------+ + + + [...] [place] | | | | | | [place] [address] | | | | | | [phone] | | | | | | | | +--------+ + + + + | 08/28/ | Office | Cardiology | Dora De La Torre | | | 2019 | Visit | | [address] | | | | | | [place] | | | | | | [place] [address] | | | | | | [phone] | | | | | | | | +--------+ + + + + documented as of this encounter Visit Diagnoses Not on filedocumented in this encounter"
--- OUTSIDE RECORDS SUMMARY | ~2020-05-22 | XMS | Encounter Summary ---
Demographics + + + | Address | [address] | | | [place] [address] | + + + | Home Phone [...] [place] | | | | | [address] | | + + + + + Care Team Providers + +------+ + | Care Pool Player Name | Role | Phone | [...] + | 06/20/ | Telephone | [facility] | Frandy Teresa, | Other (surgery | | 2013 | | NEUROSURGERY [address] | DO [address] | reminder ) | | | | [address] | [address] [place], [place] | | | | | [place], [place] | [id number] | | | | | [address] | | | | | | [phone] | | | +--------+ + + + [...] [address] | | | | | | [place] [address] | | | | | | [phone] | | | | | | | | +--------+ + + + + | 08/28/ | Office | Cardiology | Dora De La Torre | | | 2019 | Visit | | [address] | | | | | | [address] [address] | | | | | | [place] [address] | | | | | | [phone] | | | | | | | | +--------+ + + + + documented as of this encounter Visit Diagnoses Not on filedocumented in this encounter"
--- OUTSIDE RECORDS SUMMARY | ~2020-05-22 | XMS | Encounter Summary ---
Demographics + + + | Address | [address] | | | [place] [address] | + + + | Home Phone [...] [place], [place] | | | | | [address] | | + + + + + Care Team Providers + +------+ + | Care Family Services Assistant Name | Role | Phone | + +------+ + PCP | Unavailable | + +------+ + Encounter Details +--------+ + + + + | Date | Type | Department | Care Team | Description | +--------+ + + + + | 05/25/ | Hospital | [facility] | | | | 1991 | Encounter | MED CTR LABORATORY | | | | | | [address] | | | | | | [place] | | | | | | [address] | | | | | | [phone] | | | +--------+ + + + [...] | | | | | [place] [address] | | | | | | [phone] | | | | | | | | +--------+ + + + + | 08/28/ | Office | Cardiology | Dora De La Torre | | | 2020 | Visit | | [address] | | | | | | [address] | | | | | | [place] [address] | | | | | | [phone] | | | | | | | | +--------+ + + + + documented as of this encounter Visit Diagnoses Not on filedocumented in this encounter"
--- OUTSIDE RECORDS SUMMARY | ~2020-05-22 | XMS | Encounter Summary ---
Demographics + + + | Address | [address] | | | [place] [address] | + + + | Home Phone [...] [place] | | | | | [address] | | + + + + + Care Team Providers + +------+ + | Care Ripening Room Hand Name | Role | Phone | [...] [place] | | | | | | [address] | | | | | | [phone] | | | +--------+ + + + [...] | | | | | [place] [address] | | | | | | [phone] | | | | | | | | +--------+ + + + + | 08/28/ | Office | Cardiology | Dora De La Torre | | | 2020 | Visit | | [address] | | | | | | [place] | | | | | | [place] [address] | | | | | | [phone] | | | | | | | | +--------+ + + + + documented as of this encounter Visit Diagnoses Not on filedocumented in this encounter"
--- OUTSIDE RECORDS SUMMARY | ~2020-05-22 | XMS | Encounter Summary ---
Demographics + + + | Address | [address] | | | [place] [address] | + + + | Home Phone [...] [place], [place] | | | | | [address] | | + + + + + Care Team Providers + +------+ + | Care Claim Specialist Name | Role | Phone | + +------+ + PCP | Unavailable | + +------+ + Encounter Details +--------+ + + + + | Date | Type | Department | Care Team | Description | +--------+ + + + + | 09/24/ | Hospital | [facility] | | | | 1993 | Encounter | MED CTR LABORATORY | | | | | | [address] | | | | | | [place] | | | | | | [address] | | | | | | [phone] | | | +--------+ + + + [...] | | | | | [place] [address] | | | | | | [phone] | | | | | | | | +--------+ + + + + | 08/28/ | Office | Cardiology | Dora De La Torre | | | 2020 | Visit | | [address] | | | | | | [address] | | | | | | [place] [address] | | | | | | [phone] | | | | | | | | +--------+ + + + + documented as of this encounter Visit Diagnoses Not on filedocumented in this encounter"
--- OUTSIDE RECORDS SUMMARY | ~2020-05-22 | XMS | Encounter Summary ---
Demographics + + + | Address | [address] | | | [place] [address] | + + + | Home Phone [...] [place] | | | | | [address] | | + + + + + Care Team Providers + +------+ + | Care Transit Worker Name | Role | Phone | [...] | [address] | [place], [place] | Radiculopathy of | | | | [place], [place] | [address] | leg; Lumbar spine | | | | [address] | | instability; Lumbar | | | | [phone] | | spondylosis; | | | | [...] f rom the original. ZANE Castillo [address] [facility] [place], [place] [address] FAX: NEUROSURGERY HISTORY AND PHYSICAL EXAMINATION CHIEF [...] Take 15 mg by mouth nightl y. Talmage-3 Fatty Acids (FISH OIL CONCENTRATE) 1000 MG [...] has no apparent deficits with short or director long term care memory. CRANIAL NERVES: II: Acuity is [...] Intrinsics 5 5 Ulnar Intrinsics 5 5 It Technician Strength 5 5 Hip Flexion 5 [...] | | 2019 | visit | | [address] | | | | | | [place] | | | | | | [place] [address] | | | | | | [phone] | | | | | | | | +--------+ + + + + | 08/28/ | Office | Cardiology | Dora De La Torre | | | 2019 | Visit | | [address] | | | | | | [address] | | | | | | [place] [address] | | | | | | [phone] | | | | | | | [...]
--- OUTSIDE RECORDS SUMMARY | ~2020-05-22 | XMS | Encounter Summary ---
Demographics + + + | Address | [address] | | | [place] [address] | + + + | Home Phone [...] [place] | | | | | [address] | | + + + + + Care Team Providers + +------+ + | Care Hemotherapist Name | Role | Phone | + [...] + | 08/24/ | Documentati | [facility] | Katharine Moncada, | Other (urgent | | 2019 | on | CARDIOLOGY [place] | Technologist | report) | | | | [address] | | | | | | [place] | | | | | | [address] | | | | | | [phone] | | | +--------+ + + + [...] | | | | | [place] [address] | | | | | | [phone] | | | | | | | | +--------+ + + + + | 08/28/ | Office | Cardiology | Dora De La Torre | | | 2020 | Visit | | [address] | | | | | | [place] [address] | | | | | | [place] [address] | | | | | | [phone] | | | | | | | | +--------+ + + + + documented as of this encounter Visit Diagnoses Not on filedocumented in this encounter"
--- OUTSIDE RECORDS SUMMARY | ~2020-05-22 | XMS | Encounter Summary ---
Demographics + + + | Address | [address] [facility] | | | [place] [address] | + + + | Home Phone [...] + | Araceli Sibley | ECON | [place] | | | | | [address] | | + + + + + Care Team Providers + +------+ + | Care Animal Feeder Name | Role | Phone | [...] | | [address], | [place] [address] | | | | | [place] [address] | [phone] | | | | | [phone] | | | +--------+--------+ + + + [...] [place] | | | | | | [place] [address] | | | | | | [phone] | | | | | | | | +--------+ + + + + | 08/28/ | Office | Cardiology | Dora De La Torre | | | 2020 | Visit | | [address] | | | | | | [address] [address] | | | | | | [place] [address] | | | | | | [phone] | | | | | | | | +--------+ + + + + documented as of this encounter Visit Diagnoses + + | Diagnosis | + + | Essential hypertension - Primary Unspecified essential hypertension | + + documented in this encounter"
--- OUTSIDE RECORDS SUMMARY | ~2020-05-22 | XMS | Encounter Summary ---
Demographics + + + | Address | [address] | | | [place] [address] | + + + | Home Phone [...] [place] | | | | | [address] | | + + + + + Care Team Providers + +------+ + | Care Hemmer Automatic Name | Role | Phone | + +------+ + | Natalee Andersen NP | PCP | | + +------+ + Encounter Details +--------+ + + + + | Date | Type | Department | Care Team | Description | +--------+ + + + + | 06/25/ | Hospital | [facility] | Frandy Teresa, | Diabetes mellitus | | 2014 | Encounter | MED CTR OR INTRA OP | DO [address] | (HCC) (Primary Dx) | | | | [address] | [address] [place], [place] | | | | | [place], [place] | [address] | | | | | [address] | | | | | | [phone] | | | +--------+ + + + [...] this en counter H&P Notes CHAPITO ABREU [facility] - 06/21/2014 12:00 AM PDT [...] - 06/26/2014 12:00 AM PDT NBASE SCAN [facility] - 06/12/2014 12:00 AM PDTElectronically signed by Mariah Schulte at 06/12 7:30 AM PDTONBASE SCAN [facility] - 06/11/2014 12:00 AM PDT documented in this encounter Miscellaneous Notes Miscellaneous - ONBASE SCAN [facility] - 06/26/2014 12:00 AM PDT [...] stenosis, lumbar region, without neurogenic claudication ). Table Inspector visit is in response to an electronic spiritual care consult request. Patient wa s resting comfortably in bed; she was attended by her mom and dad - both sate nearby and see med very attentive and supportive. Cindy is Confucianism, attends [employer], and is strong in her rangel. She is excited about taking care of her back problem and fe els very secure in Dr. Teresa's care. She welcomed prayer, and expressed appreciation for [facility] visit. Follow up with regular visits, emotional and spiritual support. iscellaneo us - ONBASE SCAN [facility] - 06/25/2014 12:00 AM PDTElectronically [...] [address] | | | | | | [place] [address] | | | | | | [phone] | | | | | | | | +--------+ + + + + | 08/28/ | Office | Cardiology | Dora De La Torre | | | 2019 | Visit | | [address] | | | | | | [address] | | | | | | [place] [address] | | | | | | [phone] | | | | | | | [...] mL/min/1.73m2 | [facility] | | | [place]ian | RATE,ESTIMATED | | MEDICAL | | | | mL/min/1.23b1Sktb than | | CENTER - | | [...] + | [facility] | [address] | [place] | [phone] | | [facility] | | [address] | | | - LABORATORY | | | | + + + + + | [facility] | [address] | [place] | | | [facility] | | [id number] | | | - LABORATORY | [...] + | [facility] | [address] | [place] | [phone] | | [facility] | | [address] | | | - LABORATORY | | | | + + + + + | [facility] | [address] | [place], [place] | | | [facility] | | [address], [facility] | | | - [...] [address] | [place] | [phone] | | [facility] | | [address] | | | - LABORATORY | | | | + + + + + | [facility] | [address] | [place] | | | [facility] | | [id number] | | | - LABORATORY | [...] | | [facility] | | [address] | | | - BLOOD BANK | [...] + | [facility] | [address] | [place], [place] | [phone] | | [facility] | | [address] | | | - LABORATORY | | | | + + + + + | [facility] | [address] | [place], [place] | | | [facility] | | [id number] | | | - LABORATORY | [...]
--- OUTSIDE RECORDS SUMMARY | ~2020-05-22 | XMS | Encounter Summary ---
Demographics + + + | Address | [address] | | | [place] [address] | + + + | Home Phone [...] [place], [place] | | | | | [address] | | + + + + + Care Team Providers + +------+ + | Care Piano Technician Name | Role | Phone | + +------+ + PCP | Unavailable | + +------+ + Encounter Details +--------+ + + + + | Date | Type | Department | Care Team | Description | +--------+ + + + + | 03/26/ | Hospital | [facility] | | | | 2001 | Encounter | MED CTR LABORATORY | | | | | | [address] | | | | | | [place] | | | | | | [address] | | | | | | [phone] | | | +--------+ + + + [...] | | | | | [place] [address] | | | | | | [phone] | | | | | | | | +--------+ + + + + | 08/28/ | Office | Cardiology | Dora De La Torre | | | 2020 | Visit | | [address] | | | | | | [address] | | | | | | [place] [address] | | | | | | [phone] | | | | | | | | +--------+ + + + + documented as of this encounter Visit Diagnoses Not on filedocumented in this encounter"
--- OUTSIDE RECORDS SUMMARY | ~2020-05-22 | XMS | Encounter Summary ---
Demographics + + + | Address | [address] | | | [place] [address] | + + + | Home Phone [...] [place] | | | | | [address] | | + + + + + Care Team Providers + +------+ + | Care Bag Machine Set Up Operator Name | Role [...] | | | | | [address] | [place], [place] | | | | | [place], [place] | [address] | | | | | [address] | | | | | | [phone] | | | +--------+ + + + [...] EVALUATION Cindy Arndt 58 y.o. female 1955 [id number] Scheduled procedure LAMINECTOMY PLIF/TLIF INSTRUMENTATION [1842] - L5-S1 TLIF Medical history, anesthesia, medications, allergy histories reviewed. ECG reviewed. Labs reviewed. ROS / Med History Ane (+) PONV. (-) difficult intubation, malignant hyperthermia . NPO status verified. CV (+) hypertension.(-) past CO. (+) Dysrhythmias (h/o PVCs) Exercise tolerance >4 [...] | | | | | [place] [address] | | | | | | [phone] | | | | | | | | +--------+ + + + + | 08/28/ | Office | Cardiology | Dora De La Torre | | | 2020 | Visit | | [address] | | | | | | [address] | | | | | | [place] [address] | | | | | | [phone] | | | | | | | | +--------+ + + + + documented as of this encounter Visit Diagnoses Not on filedocumented in this encounter"
--- OUTSIDE RECORDS SUMMARY | ~2020-05-22 | XMS | Encounter Summary ---
Demographics + + + | Address | [address] | | | [place] [address] | + + + | Home Phone [...] [place] | | | | | [address] | | + + + + + Care Team Providers + +------+ + | Care Pipe Stem Repairer Name | Role | Phone | [...] + + | 12/17/ | Office | [facility] | Dora De La Torre | History of atrial | | 2020 | Visit | CARDIOLOGY [place] | [address] | fibrillation; Benign | | | | [address] | [address] | essential HTN; | | | | [address] | [place] [address] | History of | | | | [place], [place] | [phone] | hypothyroidism; | | | | [address] | | Stress | | | | [phone] | | hyperglycemia; | | | | | | History of sleep | | | | | | apnea; History of | | | | | | stroke; Obesity, | | | | | | Class III, BMI | | | | | | 40-49.9 (morbid | | | | | | obesity) ([facility]); Mild | | | | | [...] of fatigue and shortness of breath. Her [id number] VASC score is 4 (stroke, HTN, gender) , and Dr. Peterson did not anticoagulate he r due to low incidence of atrial fib. Her current and previous testing and procedures are detailed below. She was seen in the emergency room on October 11, 2019 at [facility] and presented wi th paranoia feeling that knives were chasing her , so went to the emergency room so that she could feel safe and Had [facility] evaluation and discharged home Labs performed [...] 405 and disposition plan was [facility] by [facility], and she was to be started on Abilify. She was seen again in the emergency room on October 19 and , [id number] for sim ilar complaints with increased delusions, [...] She has previously seen Dr. Garland in [place], and different provider in [place] when lived over there. She reports she [...] thirst or hunger. Psychiatric/Behavioral: Bipolar/Schizophrenia. Tx'd by [facility] Vaccines: Current on flu vaccine: 2019 Current on pneumonia vaccine:PPSV 23 05/29/2013 Habits/Social : Denies history of smoking. Denies EtOH use. Denies recreational or illici t drug use. Exercises sporadically. Lives in [place] . Outpatient Medications Prior to Visit Medication [...] Take by mouth. Blood Glucose Monitoring Suppl (AGILE customer insight VERIO FLEX SYSTEM) w/Device KIT by Does not ap ply route. budesonide-formoterol (SYMBICORT) 160-4.5 mcg/puff inhaler Inhale 2 puffs into the lung s 2 (two) times daily. calcium carbonate antacid (TUMS ULTRA 1000) 1000 MG CHEW Chew and swallow 1,000 mg 4 ti mes daily as needed. Cholecalciferol (VITAMIN D-3) 86763 units CAPS Take 50,000 Units by mouth [...] chest discomfort, patient unable to walk on [employer]. Resting EKG normal sinus rhythm, arrhythmias ventricular [...] is less well-controlled LABS Labs: 12/26/2018: ( [facility])CMP: Sodium 139, potassium 4.2, chloride 99, BUN 10, creatinine 0. 7, BNP 28. CBC: WBC 7.8, hemoglobin 14.3, hematocrit 42.7, platelets 214 Labs: 09/28/2019:( [facility] ER) CBC: WBC 7.8, hemoglobin 14.9, hematocrit 43.8, platelets 221. C MP: Sodium 132, potassium 4.2, chloride 95, AST 76, ALT 76, alk phos 134 Labs: 10/11/2019:( [facility]) CBC: WBC 6.7, RBC 4.97, hemoglobin 15.2, hematocrit 44.7, platel ets 200. CMP: Glucose 385, BUN 7, creatinine 0.62, GFR 97, sodium 131, potassium 4.1, chlor kelby 95, albumin 4.3, total bilirubin 0.6, AST 75, ALT 73, alk phos 144. Thyroid: TSH 4.27 Labs: 10/12/2020:( [facility]) CBC: WBC 7, RBC 4.93, hemoglobin 14.7, hematocrit 44.1, platele ts 186 normal UA CMP: Glucose 381, BUN 6, creatinine 0.63, GFR 95, sodium 133, potassium 3.8 , chloride 97, albumin 4.3, total bili 0.6, AST 62, ALT 75, alk phos 145 thyroid: TSH 3.07 Labs: 10/20/2019:( [facility]) CBC: WBC 7.1, RBC 4.93, [...] in a prescription to her local pharmacy [facility] . I made no other changes to [...] Preston BUCIO [facility] Cardiology 12/17/2019 docume nted in this [...] [address] | | | | | | [place] [address] | | | | | | [phone] | | | | | | | | +--------+ + + + + | 08/28/ | Office | Cardiology | Britt Dora | | | 2019 | Visit | | [address] | | | | | | [address] | | | | | | [place] [address] | | | | | | [phone] | | | | | | | [...] | | | | | | Yesenia ([id number]) on | | | | | | [...]
--- OUTSIDE RECORDS SUMMARY | ~2020-05-22 | XMS | Encounter Summary ---
Demographics + + + | Address | [address] | | | [place] [address] | + + + | Home Phone [...] [place] | | | | | [address] | | + + + + + Care Team Providers + +------+ + | Care Traffic Agent Name | Role | Phone | + +------+ + | Natalee Andersen NP | PCP | | + +------+ + Encounter Details +--------+ + + + + | Date | Type | Department | Care Team | Description | +--------+ + + + + | 06/25/ | Hospital | [facility] | Latricia Feliciano | | | 2014 | Encounter | MED CTR ACUTE | D, PT [address] | | | | | PHYSICAL THERAPY | NEFTALIE [place] | | | | | [address] | [address] | | | | | [place] [address] | | | | | | [phone] | | | +--------+ + + + [...] + + + +---------+ + + | Luquillo-3 Fatty | Take 1,000 mg by | [...] | | | | | [place] [address] | | | | | | [phone] | | | | | | | | +--------+ + + + + | 08/28/ | Office | Cardiology | Dora De La Torre | | | 2020 | Visit | | [address] | | | | | | [address] | | | | | | [place] [address] | | | | | | [phone] | | | | | | | | +--------+ + + + + documented as of this encounter Visit Diagnoses Not on filedocumented in this encounter"
--- OUTSIDE RECORDS SUMMARY | ~2020-05-22 | XMS | Encounter Summary ---
Demographics + + + | Address | [address] | | | [place] [address] | + + + | Home Phone [...] [place] | | | | | [address] | | + + + + + Care Team Providers + +------+ + | Care Coil Builder Name | Role | Phone | [...] [place] | | | | | | [address] | | | | | | [phone] | | | +--------+ + + + [...] | | | | | [place] [address] | | | | | | [phone] | | | | | | | | +--------+ + + + + | 08/28/ | Office | Cardiology | Dora De La Torre | | | 2020 | Visit | | [address] | | | | | | [address] | | | | | | [place] [address] | | | | | | [phone] | | | | | | | | +--------+ + + + + documented as of this encounter Visit Diagnoses Not on filedocumented in this encounter"
--- OUTSIDE RECORDS SUMMARY | ~2020-05-22 | XMS | Encounter Summary ---
Demographics + + + | Address | [address] | | | [place] [address] | + + + | Home Phone [...] [place] | | | | | [address] | | + + + + + Care Team Providers + +------+ + | Care Setter Molding And Coremaking Machines Name | Role | Phone | + [...] [place] | | | | | | [address] | | | | | | [phone] | | | +--------+ + + + [...] | | | | | | [place] [address] | | | | | | [phone] | | | | | | | | +--------+ + + + + | 08/28/ | Office | Cardiology | Dora De La Torre | | | 2020 | Visit | | [address] | | | | | | [place] | | | | | | [place] [address] | | | | | | [phone] | | | | | | | | +--------+ + + + + documented as of this encounter Visit Diagnoses Not on filedocumented in this encounter"
--- OUTSIDE RECORDS SUMMARY | ~2020-05-22 | XMS | Encounter Summary ---
Demographics + + + | Address | [address] | | | [place] [address] | + + + | Home Phone [...] [place] | | | | | [address] | | + + + + + Care Team Providers + +------+ + | Care Transportation Clerk Name | Role | Phone | + +------+ + | Natalee Andersen NP | PCP | | + +------+ + Encounter Details +--------+ + + + + | Date | Type | Department | Care Team | Description | +--------+ + + + + | 06/25/ | Hospital | [facility] | Frandy Teresa, | Acquired | | 2014 | Encounter | MED CTR XRAY [address] | DO [address] | spondylolisthesis | | | | [place] | [address] [place], [place] | | | | | [place] [address] | [address] | | | | | [phone] | | | +--------+ + + + [...] [address] | | | | | | [place] [address] | | | | | | [phone] | | | | | | | | +--------+ + + + + | 08/28/ | Office | Cardiology | Dora De La Torre | | | 2019 | Visit | | [address] | | | | | | [address] | | | | | | [place] [address] | | | | | | [phone] | | | | | | | | +--------+ + + + + documented as of this encounter Visit Diagnoses + + | Diagnosis | + + | Acquired spondylolisthesis | + + documented in this encounter"
--- OUTSIDE RECORDS SUMMARY | ~2020-05-22 | XMS | Encounter Summary ---
Demographics + + + | Address | [address] | | | [place] [address] | + + + | Home Phone [...] [place] | | | | | [address] | | + + + + + Care Team Providers + +------+ + | Care Regional Dedicated Truck Driver Name | Role | Phone [...] [place] | | | | | | [address] | | | | | | [phone] | | | +--------+ + + + [...] | | | | | [place] [address] | | | | | | [phone] | | | | | | | | +--------+ + + + + | 08/28/ | Office | Cardiology | Dora De La Torre | | | 2020 | Visit | | [address] | | | | | | [address] | | | | | | [place] [address] | | | | | | [phone] | | | | | | | | +--------+ + + + + documented as of this encounter Visit Diagnoses Not on filedocumented in this encounter"
--- OUTSIDE RECORDS SUMMARY | ~2020-05-22 | XMS | Encounter Summary ---
Demographics + + + | Address | [address] | | | [place] [address] | + + + | Home Phone [...] [place] | | | | | [address] | | + + + + + Care Team Providers + +------+ + | Care Administrative Medical Director Name | Role | Phone [...] [address] | [address] [place], [place] | (Primary Dx) | | | | [place], [place] | [address] | | | | | [address] | | | | | | [phone] | | | +--------+ + + + [...] [address] | | | | | | [place] [address] | | | | | | [phone] | | | | | | | | +--------+ + + + + | 08/28/ | Office | Cardiology | Dora De La Trore | | | 2019 | Visit | | [address] | | | | | | [address] | | | | | | [place] [address] | | | | | | [phone] | | | | | | | [...] + | MISCELLANEOUS LAB | | | [phone] | + +---------+ + + | MISCELANIOUS LAB | | | [phone] | + +---------+ + + documented in this encounter Visit Diagnoses + + | Diagnosis | + + | Status post lumbar spinal fusion - Primary Arthrodesis status | + + documented in this encounter"
--- OUTSIDE RECORDS SUMMARY | ~2020-05-22 | XMS | Encounter Summary ---
Demographics + + + | Address | [address] | | | [place] [address] | + + + | Home Phone [...] [place] | | | | | [address] | | + + + + + [...] + | 08/30/ | Telephone | [facility] | Ashley Chávez | Other (Patient wants | | 2018 | | CARDIOLOGY [place] | Pollo, Football Pad Repairer | to take monitor | | | | [address] | | off. ) | | | | [address] | | | | | | [place] | | | | | | [address] | | | | | | [phone] | | | +--------+ + + + [...] Miscellaneous Notes Telephone Encounter - Ashley Chávez, Football Pad Repairer - 08/30/2019 9:19 AM Bertagutierrez t called [...] thankful for the news. Patient stated understanding JDW:PORTAL ARCHITECT-AAMA. [facility] umented in this encounter Plan of [...] [address] | | | | | | [place] [address] | | | | | | [phone] | | | | | | | | +--------+ + + + + | 08/28/ | Office | Cardiology | Dora De La Torre | | | 2020 | Visit | | [address] | | | | | | [address] | | | | | | [place] [address] | | | | | | [phone] | | | | | | | | +--------+ + + + + documented as of this encounter Visit Diagnoses Not on filedocumented in this encounter"
--- OUTSIDE RECORDS SUMMARY | ~2020-05-22 | XMS | Encounter Summary ---
Demographics + + + | Address | [address] | | | [place] [address] | + + + | Home Phone [...] [place] | | | | | [address] | | + + + + + Care Team Providers + +------+ + | Care Structurer Name | Role | Phone | + [...] [address] | | | | | | [place], [place] | | | | | | [address] | | | +--------+ + + + [...]
--- OUTSIDE RECORDS SUMMARY | ~2020-05-22 | XMS | Encounter Summary ---
Demographics + + + | Address | [address] | | | [place] [address] | + + + | Home Phone [...] [place] | | | | | [address] | | + + + + + Care Team Providers + +------+ + | Care Internet Assessor Name | Role | Phone | [...] | Services | ogy | Epigastric | [facility], | Tyrese Shelley MD | | | Required | | abdominal | [place], | [address], | | | | | pain GERD | SHOCK ABSORBER INSTALLER [address] | [address] | | | | | (gastroesoph | [address] | [place], | | | | | ageal reflux | [address] | [place] [address] | | | | | disease) | [place], | Phone: | | | | | Fatty liver | [place] [address] | [phone] | | | | | DM | Phone: | Fax: | | | | | (diabetes | [phone] | [phone] | | | | | mellitus) | Fax: | | | | | | (HCC) | [phone] | | +--------+ + + + + [...] | [facility] | [facility], | Epigastric abdominal | | 2012 | Visit | GASTROENTEROLOGY | FORTUNATO Thomas [address] | pain (Primary Dx); | | | | [address] | [address] | GERD | | | | [address] [place], [place] | [place] | (gastroesophageal | | | | [address] | [address] | reflux disease); | | | | [phone] | | Fatty liver; DM | | [...] years ago by Dr. Saravanan Tsai, in [facility]. Colonoscopy was done 05/[address] Hamlin in [facility]. Allergies Allergen Reactions Demerol [...] encounter Miscellaneous Notes Miscellaneous - ONBASE SCAN [facility] - 03/06/2013 12:00 AM PDT iscellaneous - ONBASE SCAN [facility] - 03/06/2013 12:00 AM PDTEle ctronically signed by Mariah Schulte at 04/09/2013 9:48 AM PDTMiscellaneous - ONBASE SCAN [facility] T - 03/06/2013 12:00 AM PDT [...] | | | | | [place] [address] | | | | | | [phone] | | | | | | | | +--------+ + + + + | 08/28/ | Office | Cardiology | Dora De La Torre | | | 2019 | Visit | | [address] | | | | | | [address] | | | | | | [place] [address] | | | | | | [phone] | | | | | | | [...]
--- OUTSIDE RECORDS SUMMARY | ~2020-05-22 | XMS | Encounter Summary ---
Demographics + + + | Address | [address] | | | [place] [address] | + + + | Home Phone [...] [place] | | | | | [address] | | + + + + + Care Team Providers + +------+ + | Care Wildlife Refuge Specialist Name | Role | Phone | [...] [address] | [address] [place], [place] | Anxiety; Anemia; | | | | [place], [place] | [address] | Irregular heartbeat; | | | | [address] | | Depression; | | | | [phone] | | Migraine; | | | | [...] [address] | | | | | | [place] [address] | | | | | | [phone] | | | | | | | | +--------+ + + + + | 08/28/ | Office | Cardiology | Dora De La Torre | | | 2019 | Visit | | [address] | | | | | | [address] | | | | | | [place] [address] | | | | | | [phone] | | | | | | | [...]
--- OUTSIDE RECORDS SUMMARY | ~2020-05-22 | XMS | Encounter Summary ---
Demographics + + + | Address | [address] | | | [place] [address] | + + + | Home Phone [...] [place] | | | | | [address] | | + + + + + Care Team Providers + +------+ + | Care Clinical Courier Name | Role | Phone | + [...] [place] | | | | | | [address] | | | | | | [phone] | | | +--------+ + + + [...] | | | | | [place] [address] | | | | | | [phone] | | | | | | | | +--------+ + + + + | 08/28/ | Office | Cardiology | Dora De La Torre | | | 2020 | Visit | | [address] | | | | | | [address] | | | | | | [place] [address] | | | | | | [phone] | | | | | | | | +--------+ + + + + documented as of this encounter Visit Diagnoses Not on filedocumented in this encounter"
--- OUTSIDE RECORDS SUMMARY | ~2020-05-22 | XMS | Encounter Summary ---
Demographics + + + | Address | [address] | | | [place] [address] | + + + | Home Phone [...] [place] | | | | | [address] | | + + + + + Care Team Providers + +------+ + | Care Shoe Worker Name | Role | Phone | + +------+ + | Natalee Andersen NP | PCP | | + +------+ + Encounter Details +--------+ + + + + | Date | Type | Department | Care Team | Description | +--------+ + + + + | 07/25/ | Hospital | [facility] | Frandy Teresa, | Status post lumbar | | 2014 | Encounter | MED CTR XRAY [address] | DO [address] | spinal fusion | | | | [place] | [address] [place], [place] | | | | | [place] [address] | [address] | | | | | [phone] | | | +--------+ + + + [...] + + + +---------+ + + | Avinger-3 Fatty | Take 1,000 mg by | [...] | | | | | [place] [address] | | | | | | [phone] | | | | | | | | +--------+ + + + + | 08/28/ | Office | Cardiology | Dora De La Torre | | | 2020 | Visit | | [address] | | | | | | [address] | | | | | | [place] [address] | | | | | | [phone] | | | | | | | [...] + | MISCELLANEOUS LAB | | | [phone] | + +---------+ + + | MISCELANIOUS LAB | | | [phone] | + +---------+ + + documented in this encounter Visit Diagnoses + + | Diagnosis | + + | Status post lumbar spinal fusion Arthrodesis status | + + documented in this encounter"
--- OUTSIDE RECORDS SUMMARY | ~2020-05-22 | XMS | Encounter Summary ---
Demographics + + + | Address | [address] | | | [place] [address] | + + + | Home Phone [...] [place] | | | | | [address] | | + + + + + Care Team Providers + +------+ + | Care Fibre Technologist Name | Role | Phone | [...] | Documentati | [facility] | Kathairne Moncada, | Other (urgent | | 2019 | on | CARDIOLOGY [place] | Technologist | report) | | | | [address] | | | | | | [place] | | | | | | [address] | | | | | | [phone] | | | +--------+ + + + [...] | | | | | [place] [address] | | | | | | [phone] | | | | | | | | +--------+ + + + + | 08/28/ | Office | Cardiology | Dora De La Torre | | | 2020 | Visit | | [address] | | | | | | [address] | | | | | | [place] [address] | | | | | | [phone] | | | | | | | | +--------+ + + + + documented as of this encounter Visit Diagnoses Not on filedocumented in this encounter"
--- OUTSIDE RECORDS SUMMARY | ~2020-05-22 | XMS | Encounter Summary ---
Demographics + + + | Address | [address] | | | [place] [address] | + + + | Home Phone [...] [place], [place] | | | | | [address] | | + + + + + Care Team Providers + +------+ + | Care Artificial Stone Applicator Name | Role | Phone | + +------+ + PCP | Unavailable | + +------+ + Encounter Details +--------+ + + + + | Date | Type | Department | Care Team | Description | +--------+ + + + + | 07/23/ | Hospital | [facility] | | | | 1992 - | Encounter | MED CTR GENERIC PSY | | | | | | CONV DEPT [address] | | | | 07/28/ | | [place], | | | | 1992 | | [place] [address] | | | | | | [phone] | | | +--------+ + + + [...] [address] | | | | | | [place] [address] | | | | | | [phone] | | | | | | | | +--------+ + + + + | 08/28/ | Office | Cardiology | Dora De La Torre | | | 2019 | Visit | | [address] | | | | | | [address] | | | | | | [place] [address] | | | | | | [phone] | | | | | | | | +--------+ + + + + documented as of this encounter Visit Diagnoses Not on filedocumented in this encounter"
--- OUTSIDE RECORDS SUMMARY | ~2020-05-22 | XMS | Encounter Summary ---
Demographics + + + | Address | [address] | | | [place] [address] | + + + | Home Phone [...] [place] | | | | | [address] | | + + + + + Care Team Providers + +------+ + | Care Chief Operating Engineer Name | Role | Phone | [...] | 01/02/ | Telephone | [facility] | Frandy Teresa, | Other (6m x-ray ) | | 2015 | | NEUROSURGERY [address] | DO [address] | | | | | [address] | [address] [place], [place] | | | | | [place], [place] | [id number] | | | | | [address] | | | | | | [phone] | | | +--------+ + + + [...] [address] | | | | | | [place] [address] | | | | | | [phone] | | | | | | | | +--------+ + + + + | 08/28/ | Office | Cardiology | Dora De La Torre | | | 2019 | Visit | | [address] | | | | | | [address] | | | | | | [place] [address] | | | | | | [phone] | | | | | | | | +--------+ + + + + documented as of this encounter Visit Diagnoses Not on filedocumented in this encounter"
--- OUTSIDE RECORDS SUMMARY | ~2020-05-22 | XMS | Encounter Summary ---
Demographics + + + | Address | [address] | | | [place] [address] | + + + | Home Phone [...] [place] | | | | | [address] | | + + + + + Care Team Providers + +------+ + | Care Solar System Installer Name | Role | Phone [...] [place] | | | | | | [address] | | | | | | [phone] | | | +--------+ + + + [...] | | | | | | [place] [address] | | | | | | [phone] | | | | | | | | +--------+ + + + + | 08/28/ | Office | Cardiology | Dora De La Torre | | | 2020 | Visit | | [address] | | | | | | [address] | | | | | | [place] [address] | | | | | | [phone] | | | | | | | | +--------+ + + + + documented as of this encounter Visit Diagnoses Not on filedocumented in this encounter"
--- OUTSIDE RECORDS SUMMARY | ~2020-05-22 | XMS | Encounter Summary ---
Demographics + + + | Address | [address] | | | [place] [address] | + + + | Home Phone [...] [place] | | | | | [address] | | + + + + + Care Team Providers + +------+ + | Care Button Buttonhole Marker Name | Role | Phone | [...] | 2019 | | CARDIOLOGY [place] Abad, Superintendent Ammunition Storage | mariela ) | | | | [address] | | | | | | [facility] [place] | | | | | | [address] | | | | | | [phone] | | | +--------+ + + + [...] Miscellaneous Notes Telephone Encounter - Ashley Chávez Superintendent Ammunition Storage - 07/30/2019 1:40 PM Shila norton to patient to advise of Dr. Peterson's notes. Patient stated understanding. BRODY:MANGO. el ephone Encounter - Ashley Chávez, Superintendent Ammunition Storage - 07/30/2019 1:40 PM PDT----- Mess age [...] Thanks ----- Message ----- From: Ashley Chávez Superintendent Ammunition Storage Sent: 07/30/2019 11:47 To: Desiree Peterson DO [...] [address] | | | | | | [place] [address] | | | | | | [phone] | | | | | | | | +--------+ + + + + | 08/28/ | Office | Cardiology | Dora De La Torre | | | 2019 | Visit | | [address] | | | | | | [address] | | | | | | [place] [address] | | | | | | [phone] | | | | | | | | +--------+ + + + + documented as of this encounter Visit Diagnoses Not on filedocumented in this encounter"
--- OUTSIDE RECORDS SUMMARY | ~2020-05-22 | XMS | Encounter Summary ---
Demographics + + + | Address | [address] | | | [place] [address] | + + + | Home Phone [...] [place] | | | | | [address] | | + + + + + Care Team Providers + +------+ + | Care Finish Photographer Name | Role | Phone | + +------+ + PCP | Unavailable | + +------+ + Encounter Details +--------+ + + + + | Date | Type | Department | Care Team | Description | +--------+ + + + + | 04/27/ | Hospital | [facility] | Sage Garza MD | | | 2001 | Encounter | HOSPITAL EMERGENCY | | | | | | CENTER [address] | | [address] [place], [place] | | | | | | [address] | | | | | | [phone] | | | +--------+ + + + [...] | | | | | [place] [address] | | | | | | [phone] | | | | | | | | +--------+ + + + + | 08/28/ | Office | Cardiology | Dora De La Torre | | | 2020 | Visit | | [address] | | | | | | [address] | | | | | | [place] [address] | | | | | | [phone] | | | | | | | | +--------+ + + + + documented as of this encounter Visit Diagnoses Not on filedocumented in this encounter"
--- OUTSIDE RECORDS SUMMARY | ~2020-05-22 | XMS | Encounter Summary ---
Demographics + + + | Address | [address] | | | [place] [address] | + + + | Home Phone [...] [place] | | | | | [address] | | + + + + + Care Team Providers + +------+ + | Care Clerical Production Worker Name | Role | Phone [...] + | 07/08/ | Telephone | [facility] | Frandy Teresa, | Other (post op call | | 2013 | | NEUROSURGERY [address] | DO [address] | ) | | | | [facility] [address] | [address] [place], [place] | | | | | [place], [place] | [id number] | | | | | [address] | | | | | | [phone] | | | +--------+ + + + [...] Cert MA - 07/08/2014 11:04 [facility] SHAYNE ARAGON [...] [address] | | | | | | [place] [address] | | | | | | [phone] | | | | | | | | +--------+ + + + + | 08/28/ | Office | Cardiology | Dora De La Torre | | | 2020 | Visit | | [address] | | | | | | [address] | | | | | | [place] [address] | | | | | | [phone] | | | | | | | | +--------+ + + + + documented as of this encounter Visit Diagnoses Not on filedocumented in this encounter"
--- OUTSIDE RECORDS SUMMARY | ~2020-05-22 | XMS | Encounter Summary ---
Demographics + + + | Address | [address] | | | [place] [address] | + + + | Home Phone [...] [place] | | | | | [address] | | + + + + + Care Team Providers + +------+ + | Care Corporate Paralegal Name | Role | Phone | [...] | Frandy Simons DO | [address] | | | | | of skin | [address] | [place], | | | | | sensation | [address] | [place] | | | | | Arthrodesis | [place], [place] | [address] | | | | | status Left | [id number] | Phone: | | | | | leg | Phone: | [phone] | | | | | weakness | [phone] | Fax: | | | | | Procedures | Fax: | [phone] | | | | | MRI Lumbar | [phone] | | | | | | Spine [...] [address] | [address] [place], [place] | | | | | [place], [place] | [id number] | | | | | [address] | | | | | | [phone] | | | +--------+ + + + [...] scheduled samson for her MRI here at [facility] on 08/19. SHAYNE ARAGON eleFrandy Diaz [...] | | 2019 | visit | | [address] | | | | | | [address] | | | | | | [place] [address] | | | | | | [phone] | | | | | | | | +--------+ + + + + | 08/28/ | Office | Cardiology | Dora De La Torre | | | 2020 | Visit | | [address] | | | | | | [address] | | | | | | [place] [address] | | | | | | [phone] | | | | | | | [...] the round structure with high T1 and N1uytxpc in the right L3 vertebral | | [...] + | MISCELLANEOUS LAB | | | [phone] | + +---------+ + + | MISCELANIOUS LAB | | | [phone] | + +---------+ + + documented in [...]
--- OUTSIDE RECORDS SUMMARY | ~2020-05-22 | XMS | Encounter Summary ---
Demographics + + + | Address | [address] | | | [place] [address] | + + + | Home Phone [...] [place] | | | | | [address] | | + + + + + [...] [place] | | | | | | [address] | | | | | | [phone] | | | +--------+ + + + [...] | | | | | [place] [address] | | | | | | [phone] | | | | | | | | +--------+ + + + + | 08/28/ | Office | Cardiology | Dora De La Torre | | | 2020 | Visit | | [address] | | | | | | [address] | | | | | | [place] [address] | | | | | | [phone] | | | | | | | | +--------+ + + + + documented as of this encounter Visit Diagnoses Not on filedocumented in this encounter"
--- OUTSIDE RECORDS SUMMARY | ~2020-05-22 | XMS | Encounter Summary ---
Demographics + + + | Address | [address] | | | [place] [address] | + + + | Home Phone [...] [place] | | | | | [address] | | + + + + + Care Team Providers + +------+ + | Care Dispatcher Radio Name | Role | Phone | + +------+ + | Adriano Patrick MD | PCP | | + +------+ + Encounter Details +--------+ + + + + | Date | Type | Department | Care Team | Description | +--------+ + + + + | 05/16/ | Orders Only | [facility] | Provider, | | | 2018 | | SYSTEM GENERIC OP | MD [address] | | | | | CONVERSION [address] | [address] | | | | | [address] [place], [place] | [place] [address] | | | | | [address] | | | | | | [phone] | | | +--------+ + + + [...] | | | | | [place] [address] | | | | | | [phone] | | | | | | | | +--------+ + + + + | 08/28/ | Office | Cardiology | Dora De La Torre | | | 2020 | Visit | | [address] | | | | | | [address] | | | | | | [place] [address] | | | | | | [phone] | | | | | | | | +--------+ + + + + documented as of this encounter Visit Diagnoses Not on filedocumented in this encounter"
--- OUTSIDE RECORDS SUMMARY | ~2020-05-22 | XMS | Encounter Summary ---
Demographics + + + | Address | [address] | | | [place] [address] | + + + | Home Phone [...] [place] | | | | | [address] | | + + + + + Care Team Providers + +------+ + | Care Talent Program Manager Name | Role | Phone | + +------+ + | Natalee Andersen NP | PCP | | + +------+ + Encounter Details +--------+ + + + + | Date | Type | Department | Care Team | Description | +--------+ + + + + | 05/02/ | Hospital | [facility] | Frandy Teresa, | Back pain | | 2014 | Encounter | MED CTR XRAY [address] | DO [address] | | | | | [place] | [address] [place] | | | | | [place] [address] | [address] | | | | | [phone] | | | +--------+ + + + [...] + + + +---------+ + + | [place]-3 Fatty | Take 1,000 mg by | [...] | 2019 | visit | | CAR[address]INE Mnedez [address] | | | | | | [address] | | | | | | [place] [address] | | | | | | [phone] | | | | | | | | +--------+ + + + + | 08/28/ | Office | Cardiology | Dora De La Torre | | | 2019 | Visit | | [address] | | | | | | [address] | | | | | | [place] [address] | | | | | | [phone] | | | | | | | [...] + | MISCELLANEOUS LAB | | | [phone] | + +---------+ + + | MISCELANIOUS LAB | | | [phone] | + +---------+ + + documented in this encounter Visit Diagnoses + + | Diagnosis | + + | Back pain Backache, unspecified | + + documented in this encounter"
--- OUTSIDE RECORDS SUMMARY | ~2020-05-22 | XMS | Encounter Summary ---
Demographics + + + | Address | [address] | | | [place] [address] | + + + | Home Phone [...] [place], [place] | | | | | [address] | | + + + + + Care Team Providers + +------+ + | Care Tricot Knitter Name | Role | Phone | + +------+ + PCP | Unavailable | + +------+ + Encounter Details +--------+ + + + + | Date | Type | Department | Care Team | Description | +--------+ + + + + | 03/13/ | Hospital | [facility] | | | | 1996 - | Encounter | MED CTR GENERIC OP | | | | | | CONV DEPT [address] | | | | 03/21/ | | [address], | | | | 1996 | | [place] [address] | | | | | | [phone] | | | +--------+ + + + [...] [address] | | | | | | [place] [address] | | | | | | [phone] | | | | | | | | +--------+ + + + + | 08/28/ | Office | Cardiology | Dora De La Torre | | | 2019 | Visit | | [address] | | | | | | [address] | | | | | | [place] [address] | | | | | | [phone] | | | | | | | | +--------+ + + + + documented as of this encounter Visit Diagnoses Not on filedocumented in this encounter"
--- OUTSIDE RECORDS SUMMARY | ~2020-05-22 | XMS | Encounter Summary ---
Demographics + + + | Address | [address] | | | [place] [address] | + + + | Home Phone [...] [place] | | | | | [address] | | + + + + + Care Team Providers + +------+ + | Care Branner Machine Tender Name | Role | Phone [...] + + | 08/28/ | Telephone | [facility] | Ashley Chávez | Other (Patient has | | 2018 | | CARDIOLOGY [place] Abad, Developer Programmer Analyst | questions about | | | | [address] | | monitor. ) | | | | [place] | | | | | | [address] | | | | | | [phone] | | | +--------+ + + + [...] Miscellaneous Notes Telephone Encounter - Ashley Chávez, Developer Programmer Analyst - 08/28/2019 8:32 AM Rory foster says [...] that if she chooses. Patient stated understanding. JPolloW:CASE RESOLUTION SPECIALIST-AAMA. [facility] umented in this encounter Plan of Treatment [...] [address] | | | | | | [place] [address] | | | | | | [phone] | | | | | | | | +--------+ + + + + | 08/28/ | Office | Cardiology | Dora De La Torre | | | 2020 | Visit | | [address] | | | | | | [address] | | | | | | [place] [address] | | | | | | [phone] | | | | | | | | +--------+ + + + + documented as of this encounter Visit Diagnoses Not on filedocumented in this encounter"
--- OUTSIDE RECORDS SUMMARY | ~2020-05-22 | XMS | Encounter Summary ---
Demographics + + + | Address | [address] | | | [place] [address] | + + + | Home Phone [...] [place], [place] | | | | | [address] | | + + + + + Care Team Providers + +------+ + | Care Distribution Operations Supervisor Name | Role | Phone | + +------+ + PCP | Unavailable | + +------+ + Encounter Details +--------+ + + + + | Date | Type | Department | Care Team | Description | +--------+ + + + + | 01/26/ | Hospital | [facility] | [place], | | | 2011 | Encounter | MED CTR XRAY [address] | MD [address] | | | | | [place] | [place] | | | | | [place] [address] | [address] | | | | | [phone] | | | +--------+ + + + [...] [address] | | | | | | [place] [address] | | | | | | [phone] | | | | | | | | +--------+ + + + + | 08/28/ | Office | Cardiology | Dora De La Torre | | | 2019 | Visit | | [address] | | | | | | [address] | | | | | | [place] [address] | | | | | | [phone] | | | | | | | [...] Performed At | + + + | [facility] Diagnostic Imaging Department | [place] | | [address] [facility] [place] | [facility] | | BILATERAL KNEES, THREE VIEWS: [...] Transcribed | | | Date/Time: 01/27/2012 17:18 Tumbler Machine Operator: | | | <Electronically Signed by Willie Perry MD> 01/27/12 0314 | | + + + + + | Procedure Note | + + | Juan, Rad Conversion - 11/30/2013 5:03 PM [facility] | | Diagnostic Imaging Department [address] [place] [address] | | BILATERAL KNEES, THREE VIEWS: 01/27/2012 [...] 17:12 | |Transcribed Date/Time: 01/27/2012 17:18 | |Tumbler Machine Operator: | |<Electronically Signed by Willie Perry MD> 01/27/122253 | + + + +---------+ + + | Performing | Address | City/State/Zipcode | Phone Number | | Organization | | | | + +---------+ + + | [place] | | | | | [facility] | | | | + +---------+ + + documented in this encounter Visit Diagnoses Not on filedocumented in this encounter"
--- OUTSIDE RECORDS SUMMARY | ~2020-05-22 | XMS | Encounter Summary ---
Demographics + + + | Address | [address] | | | [place] [address] | + + + | Home Phone [...] [place] | | | | | [address] | | + + + + + Care Team Providers + +------+ + | Care Research Group Director Name | Role | Phone | [...] [address] | [address] [place], [place] | fusion | | | | [place], [place] | [address] | | | | | [address] | | | | | | [phone] | | | +--------+ + + + [...] [address] | | | | | | [place] [address] | | | | | | [phone] | | | | | | | | +--------+ + + + + | 08/28/ | Office | Cardiology | Dora De La Torre | | | 2019 | Visit | | [address] | | | | | | [address] | | | | | | [place] [address] | | | | | | [phone] | | | | | | | | +--------+ + + + + documented as of this encounter Visit Diagnoses + + | Diagnosis | + + | Lumbago - Primary | + + | S/P lumbar fusion Arthrodesis status | + + documented in this encounter"
--- OUTSIDE RECORDS SUMMARY | ~2020-05-22 | XMS | Encounter Summary ---
Demographics + + + | Address | [address] | | | [place] [address] | + + + | Home Phone [...] [place] | | | | | [address] | | + + + + + Care Team Providers + +------+ + | Care Associate Professor Of Pathology Name | Role | Phone | + [...] [place] | | | | | | [address] | | | | | | [phone] | | | +--------+ + + + [...] | | | | | [place] [address] | | | | | | [phone] | | | | | | | | +--------+ + + + + | 08/28/ | Office | Cardiology | Dora De La Torre | | | 2020 | Visit | | [address] | | | | | | [address] | | | | | | [place] [address] | | | | | | [phone] | | | | | | | | +--------+ + + + + documented as of this encounter Visit Diagnoses Not on filedocumented in this encounter"
--- OUTSIDE RECORDS SUMMARY | ~2020-05-22 | XMS | Encounter Summary ---
Demographics + + + | Address | [address] | | | [place] [address] | + + + | Home Phone [...] [place], [place] | | | | | [address] | | + + + + + Care Team Providers + +------+ + | Care Pizza Chef Name | Role | Phone | + +------+ + PCP | Unavailable | + +------+ + Encounter Details +--------+ + + + + | Date | Type | Department | Care Team | Description | +--------+ + + + + | 12/27/ | Hospital | [facility] | | | | 1995 | Encounter | MED CTR LABORATORY | | | | | | [address] | | | | | | [place] | | | | | | [address] | | | | | | [phone] | | | +--------+ + + + [...] | | | | | [place] [address] | | | | | | [phone] | | | | | | | | +--------+ + + + + | 08/28/ | Office | Cardiology | Dora De La Torre | | | 2020 | Visit | | [address] | | | | | | [address] | | | | | | [place] [address] | | | | | | [phone] | | | | | | | | +--------+ + + + + documented as of this encounter Visit Diagnoses Not on filedocumented in this encounter"
--- OUTSIDE RECORDS SUMMARY | ~2020-05-22 | XMS | Encounter Summary ---
Demographics + + + | Address | [address] | | | [place] [address] | + + + | Home Phone [...] [place] | | | | | [address] | | + + + + + Care Team Providers + +------+ + | Care Radar Scientist Name | Role | Phone | [...] 03/06/ | Office | [facility] | Deon Gonzales | ROGERS (obstructive | | 2012 | Visit | SLEEP DISORDER [address] | MD [address] | sleep apnea) | | | | [address] [place] [place] | [address] [place] | (Primary Dx); | | | | [place] [address] | [place] [address] | Sleepiness | | | | [phone] | [phone] | | | | | | | [...] differen t from the original. 03/06/13 [address] [place] Sleepiness Scale Sitting and reading 3 Watching [...] by mouth Daily., Disp: , Rfl: ; Reading-3 Fatty Acids (FISH OIL CONCENTRATE) 1000 [...] is encounter Miscellaneous Notes M[facility] - 03/06/2013 12:00 AM PDT iscellaneous - [facility] - 03/06/2013 12:00 AM PDTEle ctronically [...] [address] | | | | | | [place] [address] | | | | | | [phone] | | | | | | | | +--------+ + + + + | 08/28/ | Office | Cardiology | Dora De La Torre | | | 2019 | Visit | | [address] | | | | | | [address] | | | | | | [place] [address] | | | | | | [phone] | | | | | | | | +--------+ + + + + documented as of this encounter Visit Diagnoses + + | Diagnosis | + + | ROGERS (obstructive sleep apnea) - Primary Obstructive sleep apnea (adult) (pediatric) | + + | Sleepiness Other alteration of consciousness | + + documented in this encounter"
--- OUTSIDE RECORDS SUMMARY | ~2020-05-22 | XMS | Encounter Summary ---
Demographics + + + | Address | [address] [address] [facility] [address] | | | [place] [address] | + + + | Home Phone [...] [place] | | | | | [address] | | + + + + + Care Team Providers + +------+ + | Care Juvenile Detention Officer Name | Role | Phone | [...] | Transcriptions | + + | Interface, Retort Load Expediter In - 11/04/2006 3:03 AM PST | | [address] | | [place], [place] [address] [facility] | | ClinicsOPERATION RECORDMed Rec [...] skin retractor was put in place. The [place] elevators wereused to separate the | | [...]
--- OUTSIDE RECORDS SUMMARY | ~2020-05-22 | XMS | Encounter Summary ---
Demographics + + + | Address | [address] | | | [place] [address] | + + + | Home Phone [...] [place], [place] | | | | | [address] | | + + + + + Care Team Providers + +------+ + | Care Bureau Director Name | Role | Phone | + +------+ + PCP | Unavailable | + +------+ + Encounter Details +--------+ + + + + | Date | Type | Department | Care Team | Description | +--------+ + + + + | 05/29/ | Hospital | [facility] | | | | 1991 | Encounter | MED CTR LABORATORY | | | | | | [address] | | | | | | [place] | | | | | | [address] | | | | | | [phone] | | | +--------+ + + + [...] | | | | | [place] [address] | | | | | | [phone] | | | | | | | | +--------+ + + + + | 08/28/ | Office | Cardiology | Dora De La Torre | | | 2020 | Visit | | [address] | | | | | | [address] | | | | | | [place] [address] | | | | | | [phone] | | | | | | | | +--------+ + + + + documented as of this encounter Visit Diagnoses Not on filedocumented in this encounter"
--- OUTSIDE RECORDS SUMMARY | 2020-05-22 11:24 | XMS ---
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 Events No recent Security Events currently on file CRITERIA MET - 6 ED Visits in 6 Months - [facility] - Has Care Guidelines - PDMP - [facility] - 2 Visits in 30 Days CARE PROVIDERS WAYNE CAMARGO Internal Medicine 09/07/2019-Current PHONE: [phone] SMITH DOMINGUEZ Counselor: Mental Health 05/21/2020-Current PHONE: [phone] Kenny Palafox [facility] Current PHONE: [phone] ANGELICA MELVIN Internal Medicine: Pulmonary Disease 05/21/2020-Current PHONE: Unknown Jose Ag [facility] 01/31/2019-Current PHONE: [phone] Guidelines Source: [facility] [place] Guidelines Date: 03/13/2019 Care Coordination: Mental health services are being provided by [employer].\T\nbsp; Please contact [employer] with mental health concerns.\T\nbsp; [place]: \T\nbsp; Moshe: [phone]. Care History Medical/Surgical 05/21/2020 [facility] Patient\T\#39;s therapist, Ashley Lopez, GARMENT MANUFACTURING SUPERVISOR at [facility] has been advised of her overuse of the ED and discussed with her. Also, she has put in a Referral to have a CHW at [facility] work with her .\T\nbsp; Patient was just seen by Walk In provider, Ashley Sharp, yesterday, 05/20/2020 for skin issue.\T\ nbsp; Next PCP visit on 05/29/2020. 04/29/2020 [facility] Patient requested new PCP, not happy with Dr. Camargo.\T\nbsp; Patient aware of [facility] appointment 04/30/2020. 04/22/2020 [facility] Patient had follow up scheduled for 04/25/[address] Camargo,but was canceled by doctor.\T\nbsp; Left voice mail for patient to reschedule follow up visit. E.D. VISIT COUNT (12 MO.) [address] [facility] TOTAL 22 NOTE: Visits indicate total known visits. ED/UCC VISIT TRACKING (12 MO.) 05/22/2020 11:22 [facility] [place] TYPE: Emergency COMPLAINT: - CHEST PAIN, SOB 05/21/2020 04:15 [facility] [place] TYPE: Emergency COMPLAINT: - LIGHT HEADED 05/13/2020 19:47 [facility] [place] TYPE: Emergency COMPLAINT: - MEDICAL CLEARANCE DIAGNOSES: - Allergy status to other drugs, medicaments and biological sub - Other intermission coordinator (current) drug therapy - MCC (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 of 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 - Encounter for other general examination - Essential (primary) hypertension - Gastro-esophageal reflux disease without esophagitis - MCC (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 - Allergy status to sulfonamides status - Old myocardial infarction - Type 2 diabetes mellitus without complications 05/06/2020 06:05 [facility] [place] TYPE: Emergency COMPLAINT: - RAPID HEARTRATE DIAGNOSES: - Gastro-esophageal reflux disease without esophagitis - intermission coordinator (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 of 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 - Allergy status to sulfonamides status - Essential (primary) hypertension - Allergy status to other drugs, medicaments and biological sub - Type 2 diabetes mellitus without complications - intermission coordinator (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 - Palpitations - Old myocardial infarction - Other intermission coordinator (current) drug therapy 05/03/2020 19:00 [facility] [place] TYPE: Emergency COMPLAINT: - RAPID HEART RATE DIAGNOSES: - Allergy status to other drugs, medicaments and biological sub - Allergy status to sulfonamides status - Old myocardial infarction - Gastro-esophageal reflux disease without esophagitis - Essential (primary) hypertension - MCC (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 of 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 - Type 2 diabetes mellitus with hyperglycemia - MCC (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 - Palpitations - Other nursing home (current) drug therapy 04/28/2020 18:43 [facility] [place] TYPE: Emergency COMPLAINT: - MEDICAL CLEARANCE DIAGNOSES: - Gastro-esophageal reflux disease without esophagitis - Allergy status to other drugs, medicaments and biological sub - Essential (primary) hypertension - Allergy status to sulfonamides status - Type 2 diabetes mellitus without complications - Other intermission coordinator (current) drug therapy - Hallucinations, unspecified - [...] Allergy status to sulfonamides status - Other intermission coordinator (current) drug therapy - Abrasion, left knee, [...] Gastro-esophageal reflux disease without esophagitis - Other intermission coordinator (current) drug therapy - Delusional disorders 10/22/2019 16:37 [facility] [place] TYPE: Emergency COMPLAINT: - MEDICAL CLEARANCE DIAGNOSES: - Type 2 diabetes mellitus without complications - Gastro-esophageal reflux disease without esophagitis - Old myocardial infarction - Other intermission coordinator (current) drug therapy - Essential (primary) hypertension - Allergy status to sulfonamides status - Allergy status to other drugs, medicaments and biological sub - Encounter for other general examination 10/20/2019 20:02 [facility] [place] TYPE: Emergency COMPLAINT: - MEDICAL CLEARANCE DIAGNOSES: - Gastro-esophageal reflux disease without esophagitis - Type 2 diabetes mellitus without complications - Encounter for other general examination - Other nursing home (current) drug therapy - Old myocardial infarction [...] ischemic attack (TIA), and cere - Other nursing home (current) drug therapy - Old myocardial infarction - Essential (primary) hypertension - Type 2 diabetes mellitus with hyperglycemia 10/11/2019 10:06 [facility] [place] TYPE: Emergency COMPLAINT: - MEDICAL CLEARANCE DIAGNOSES: - Essential (primary) hypertension - Delusional disorders - Old myocardial infarction - Delusional disorders - Allergy status to sulfonamides status - Other intermission coordinator (current) drug therapy - Schizoaffective disorder, unspecified 09/28/2019 13:19 [facility] [place] TYPE: Emergency COMPLAINT: - MEDICAL CLEARANCE DIAGNOSES: - Type 2 diabetes mellitus without complications - Allergy status to other drugs, medicaments and biological sub - Old myocardial infarction - Other intermission coordinator (current) drug therapy - Allergy status to sulfonamides status - Gastro-esophageal reflux disease without esophagitis - Essential (primary) hypertension - Suicidal ideations - Encounter for other administrative examinations 09/26/2019 10:06 [facility] [place] TYPE: Emergency COMPLAINT: - MEDICAL CLEARANCE DIAGNOSES: - Other intermission coordinator (current) drug therapy - Personal history of transient ischemic attack (TIA), and cere - Gastro-esophageal reflux disease without esophagitis - Allergy status to sulfonamides status - Old myocardial infarction - Schizoaffective disorder, unspecified - Allergy status to other drugs, medicaments and biological sub - Essential (primary) hypertension - intermission coordinator (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 09/25/2019 13:35 [facility] [place] TYPE: Emergency COMPLAINT: - HEARING VOICES DIAGNOSES: - Type 2 diabetes mellitus without complications - Personal history of transient ischemic attack (TIA), and cere - Gastro-esophageal reflux disease without esophagitis - Schizoaffective disorder, unspecified - Suicidal ideations - MCC (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 - Old myocardial infarction - Allergy status to sulfonamides status - Essential (primary) hypertension - Other nursing home (current) drug therapy - Allergy status to other drugs, medicaments and biological sub 09/18/2019 13:53 [facility] [place] TYPE: Emergency COMPLAINT: - MEDICAL CLEARANCE DIAGNOSES: - Type 2 diabetes mellitus without complications - Schizoaffective disorder, unspecified - Suicidal ideations - Allergy status to other drugs, medicaments and biological sub - Gastro-esophageal reflux disease without esophagitis - Old myocardial infarction - intermission coordinator (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 - Essential (primary) hypertension - Rash and other nonspecific skin eruption - Allergy status to sulfonamides status - Other intermission coordinator (current) drug therapy 09/18/2019 10:33 [facility] [place] TYPE: Emergency COMPLAINT: - SUICIDAL THOUGHTS, HEARING VOICES DIAGNOSES: - Disorder of urea cycle metabolism, unspecified - Other nursing home (current) drug therapy - Schizoaffective disorder, unspecified - Essential (primary) hypertension - Type 2 diabetes mellitus without complications - Gastro-esophageal reflux disease without esophagitis - Old myocardial infarction - Allergy status to sulfonamides status - Allergy status to other drugs, medicaments and biological sub - MCC (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 09/06/2019 11:[address] [facility] [place] TYPE: Emergency COMPLAINT: - MEDICAL CLEARANCE DIAGNOSES: - Old myocardial infarction - Essential (primary) hypertension - Allergy status to sulfonamides status - Auditory hallucinations - Other intermission coordinator (current) drug therapy - Allergy status to other drugs, medicaments and biological sub - Type 2 diabetes mellitus without complications - Gastro-esophageal reflux disease without esophagitis 08/15/2019 15:26 [facility] [place] [facility] COMPLAINT: - DIZZINESS DIAGNOSES: - Schizoaffective disorder, unspecified - Other intermission coordinator (current) drug therapy - Type 2 diabetes mellitus without complications - Allergy status to other drugs, medicaments and biological sub - Old myocardial infarction - Essential (primary) hypertension - Gastro-esophageal reflux disease without esophagitis - Syncope and collapse - Allergy status to sulfonamides status Plus 2 More Visits INPATIENT VISIT TRACKING [...] sub - Paroxysmal atrial fibrillation - Other intermission coordinator (current) drug therapy - Allergy status to sulfonamides status [email or web address]
--- NOTE | 2020-05-22 21:38 | EKG ---
[facility] [address] [facility] [facility] [place] [address] Signed Sinus rhythm with 1st degree AV block Nonspecific intraventricular block Possible Anterolateral infarct (cited on or before 21-MAY-2020) Abnormal ECG When compared with ECG of 21-MAY-2020 04:23, (Unconfirmed) Criteria for Inferior infarct are no longer present Questionable change in initial forces of Lateral leads Inverted T waves have replaced nonspecific T wave abnormality in Inferior leads Confirmed by RONALD DIAZ DO ([id number]) on 05/22/2020 9:38:04 PM Electronically Signed By: RONALD DIAZ DO 05/22/20 [id number] PATIENT NAME: BERNARDA ALARCON Electrocardiogram DATE OF : 55 PHYSICIAN: RONALD DIAZ DO REPORT #: [id number] REPORT IS CONFIDENTIAL AND NOT TO BE RELEASED WITHOUT AUTHORIZATION
== END 2020-05-22 14:58 | disposition home or self-care (01) ==
LOC: ED 11:21
DX: E11.65 Type 2 diabetes mellitus with hyperglycemia (principal); R07.9 Chest pain, unspecified; K21.9 Gastro-esophageal reflux disease without esophagitis; Z88.2 Allergy status to sulfonamides; Z88.8 Allergy status to other drugs, medicaments and biological substances
CPT/HCPCS: 80053; 84484; 85025; 93005; 93010; 99285-25; J1815; J7030

== ENCOUNTER 2020-05-23 09:02 | Emergency (ER) | payer MEDICARE ==
[~2020-05-23] VITALS: Ht 170.2 cm; Wt 90.7 kg
--- OUTSIDE RECORDS SUMMARY | ~2020-05-23 | XMS | Encounter Summary ---
Demographics + + + | Address | [address] | | | [place] [address] | + + + | Home Phone | | + + + | Preferred Language | Unknown | + + + | Marital Status | | + + + | Episcopalian Affiliation | 1013 | + + + | Race | Unknown | + + + | Ethnic Group | Unknown | + + + Author + + + | Author | [facility] | | | and [place] | + + + | Organization | [facility] | | | and [place] | + + + | Address | Unknown | + + + | Phone | Unavailable | + + + Support + + + + + | Name | Relationship | Address | Phone | + + + + + | Araceli Sibley | ECON | [place] | | | | | [address] | | + + + + + Care Team Providers + +------+ + | Care Metal Spray Operator Name | Role | Phone | [...] + + | 08/20/ | Documentati | [facility] | Katharine Moncada, | Other (urgent | | 2019 | on | CARDIOLOGY [place] | Technologist | report) | | | | [address] | | | | | | [place] | | | | | | [address] | | | | | | [phone] | | | +--------+ + + + [...] Progress Notes Katharine Moncada, Technologist - 08/20/2019 8:53 AM PDTReceived urgent report 08/20/19 Pt self triggered 08/17/19 at 08:53 84 BPM Called pt and she slept all weekend and is feeling really good 30 day monitor was placed 08/09/19 No medications Will continue to monitor Please see attachment documented in this enco unter Plan of Treatment +--------+ + + + + | Date | Type | Specialty | Care Team | Description | +--------+ + + + + | 05/29/ | Procedure | Cardiology | Dora De La Torre | | | 2019 | visit | | [address] | | | | | | [address] | | | | | | [place] [address] | | | | | | [phone] | | | | | | | | +--------+ + + + + | 08/28/ | Office | Cardiology | Dora De La Torre | | | 2020 | Visit | | [address] | | | | | | [address] | | | | | | [place] [address] | | | | | | [phone] | | | | | | | | +--------+ + + + + documented as of this encounter Visit Diagnoses Not on filedocumented in this encounter"
--- OUTSIDE RECORDS SUMMARY | ~2020-05-23 | XMS | Encounter Summary ---
Demographics + + + | Address | [address] | | | [place] [address] | + + + | Home Phone | | + + + | Preferred Language | Unknown | + + + | Marital Status | | + + + | Taoism Affiliation | 1013 | + + + [...] [place], [place] | | | | | [address] | | + + + + + Care Team Providers + +------+ + | Care City Council Member Name | Role | Phone | + +------+ + PCP | Unavailable | + +------+ + Encounter Details +--------+ + + + + | Date | Type | Department | Care Team | Description | +--------+ + + + + | 07/17/ | Abstract | [facility] | Acct | | | 2011 | | Conversion Location | | | | | | [address] [facility] | | | | | | [place], [place] | | | | | | [address] | | | | | | [phone] | | | +--------+ + + + [...] | | | | | [place] [address] | | | | | | [phone] | | | | | | | | +--------+ + + + + | 08/28/ | Office | Cardiology | Dora De La Torre | | | 2020 | Visit | | [address] | | | | | | [address] | | | | | | [place] [address] | | | | | | [phone] | | | | | | | | +--------+ + + + + documented as of this encounter Visit Diagnoses Not on filedocumented in this encounter"
--- OUTSIDE RECORDS SUMMARY | ~2020-05-23 | XMS | Encounter Summary ---
Demographics + + + | Address | [address] | | | [place] [address] | + + + | Home Phone [...] [place], [place] | | | | | [address] | | + + + + + Care Team Providers + +------+ + | Care Sheet Taker Name | Role | Phone | + +------+ + PCP | Unavailable | + +------+ + Encounter Details +--------+ + + + + | Date | Type | Department | Care Team | Description | +--------+ + + + + | 06/23/ | Hospital | [facility] | | | | 2000 | Encounter | MED CTR GENERIC OP | | | | | | CONV DEPT [address] | | | | | | [place], | | | | | | [place] [address] | | | | | | [phone] | | | +--------+ + + + [...] | | | | | [place] [address] | | | | | | [phone] | | | | | | | | +--------+ + + + + | 08/28/ | Office | Cardiology | Dora De La Torre | | | 2019 | Visit | | [address] | | | | | | [address] | | | | | | [place] [address] | | | | | | [phone] | | | | | | | | +--------+ + + + + documented as of this encounter Visit Diagnoses Not on filedocumented in this encounter"
--- OUTSIDE RECORDS SUMMARY | ~2020-05-23 | XMS | Encounter Summary ---
Demographics + + + | Address | [address] | | | [place] [address] | + + + | Home Phone | | + + + | Preferred Language | Unknown | + + + | Marital Status | | + + + | Latter-Day Affiliation | 1013 | + + + [...] [place], [place] | | | | | [address] | | + + + + + Care Team Providers + +------+ + | Care Body Designer Name | Role | Phone | + +------+ + PCP | Unavailable | + +------+ + Encounter Details +--------+ + + + + | Date | Type | Department | Care Team | Description | +--------+ + + + + | 02/24/ | Hospital | [facility] | | | | 1997 - | Encounter | MED CTR GENERIC PSY | | | | | | CONV DEPT [address] | | | | 02/26/ | | [address] [place], | | | | 1997 | | [place] [address] | | | | | | [phone] | | | +--------+ + + + [...] [address] | | | | | | [place] [address] | | | | | | [phone] | | | | | | | | +--------+ + + + + | 08/28/ | Office | Cardiology | Dora De La Torre | | | 2019 | Visit | | [address] | | | | | | [address] | | | | | | [place] [address] | | | | | | [phone] | | | | | | | | +--------+ + + + + documented as of this encounter Visit Diagnoses Not on filedocumented in this encounter"
--- OUTSIDE RECORDS SUMMARY | ~2020-05-23 | XMS | Encounter Summary ---
Demographics + + + | Address | [address] | | | [place] [address] | + + + | Home Phone [...] [place], [place] | | | | | [address] | | + + + + + Care Team Providers + +------+ + | Care Fur Drummer Name | Role | Phone | + +------+ + PCP | Unavailable | + +------+ + Encounter Details +--------+ + + + + | Date | Type | Department | Care Team | Description | +--------+ + + + + | 09/23/ | Hospital | [facility] | | | | 1994 | Encounter | MED CTR LABORATORY | | | | | | [address] | | | | | | [place] | | | | | | [address] | | | | | | [phone] | | | +--------+ + + + [...] | | | | | | [place] [address] | | | | | | [phone] | | | | | | | | +--------+ + + + + | 08/28/ | Office | Cardiology | Dora De La Torre | | | 2020 | Visit | | [address] | | | | | | [address] | | | | | | [place] [address] | | | | | | [phone] | | | | | | | | +--------+ + + + + documented as of this encounter Visit Diagnoses Not on filedocumented in this encounter"
--- OUTSIDE RECORDS SUMMARY | ~2020-05-23 | XMS | Encounter Summary ---
Demographics + + + | Address | [address] | | | [place] [address] | + + + | Home Phone [...] [place] | | | | | [address] | | + + + + + Care Team Providers + +------+ + | Care Dinker Name | Role | Phone | + [...] + + | 08/15/ | Documentati | [facility] | Katharine Moncada, | Other (urgent | | 2019 | on | CARDIOLOGY [place] | Technologist | report) | | | | [address] | | | | | | [place] | | | | | | [address] | | | | | | [phone] | | | +--------+ + + + [...] Progress Notes Katharine Moncada, Technologist - 08/15/2019 4:41 PM PDTReceived urgent report 08/15/19 Pt had a self triggered 08/15/19 at 08:37 78 BPM 30 day monitor was placed 08/09/19 [...] | | | | | [place] [address] | | | | | | [phone] | | | | | | | | +--------+ + + + + | 08/28/ | Office | Cardiology | Dora De La Torre | | | 2020 | Visit | | [address] | | | | | | [address] | | | | | | [place] [address] | | | | | | [phone] | | | | | | | | +--------+ + + + + documented as of this encounter Visit Diagnoses Not on filedocumented in this encounter"
--- OUTSIDE RECORDS SUMMARY | ~2020-05-23 | XMS | Clinical Summary ---
Demographics + + + | Address | [address] | | | [place] [address] | + + + | Home Phone [...] [place] | | | | | [address] | | + + + + + Care Team Providers + +------+ + | Care Administrative Professional Name | Role | Phone | + [...] | | + + + +---------+------+------+-------+ | albuterol 90 | Inhale 2 puffs into | | 0 | | | Activ | | mcg/puff inhaler | the lungs every 4 | | | | | e | | | (four) hours as | | | | | | | | needed for Wheezing. | | | | | | + + + +---------+------+------+-------+ | Blood Glucose | by Does not apply | | 0 | | | Activ | | Monitoring Suppl | route. | | | | | e | | (Zeer VERIO FLEX | | | | | | | | SYSTEM) w/Device | | | | | | | | KIT | | | | | | | + + + +---------+------+------+-------+ | clonazePAM | Take 0.5 mg by mouth | | 0 | | | Activ | | (KLONOPIN) 0.5 mg | 2 times daily. | | | | | e | | tablet | | | | | | | + + + +---------+------+------+-------+ | calcium carbonate | Chew and swallow | | 0 | | | Activ | | antacid (TUMS ULTRA | 1,000 mg 4 times | | | | | e | | 1000) 1000 MG CHEW | daily as needed. | | | | | | + + + +---------+------+------+-------+ | ARIPiprazole | Take 10 mg by mouth | | 0 | | | Activ | | (ABILIFY) 10 mg | nightly. | | | | | e | | tablet | | | | | | | + + + +---------+------+------+-------+ | Sennosides | Chew and swallow as | | 0 | | | Activ | | (EX-LAX) 15 MG CHEW | needed. | | | | | e | + + + +---------+------+------+-------+ | loperamide | Take 2 mg by mouth | | 0 | | | Activ | | (IMODIUM A-D) 2 MG | as needed for | | | | | e | | tablet | Diarrhea. | | | | | | + + + +---------+------+------+-------+ | magnesium oxide | Take 250 mg by mouth | | 0 | | | Activ | | 250 MG TABS | 2 times daily. | | | | | e | + + + +---------+------+------+-------+ | omeprazole | Take 20 mg by mouth | | 0 | | | Activ | | (PRILOSEC) 20 mg | 2 times daily. | | | | | e | | capsule | | | | | | | + + + +---------+------+------+-------+ | amitriptyline | Take 150 mg by mouth | | 0 | | | Activ | | (ELAVIL) 150 MG | nightly . | | | | | e | | tablet | | | | | | | + + + +---------+------+------+-------+ | metoprolol | Take 1 tablet by | 60 | 11 | 07/0 | | Activ | | succinate | mouth 2 times daily. | tablet | | 2/20 | | e | | (TOPROL-XL) 100 mg | | | | 20 | | | | ER tablet | | | | | | | + + + +---------+------+------+-------+ | metoprolol | Take 2 tablets by | 120 | 11 | 04/2 | 07/0 | Disco | | succinate | mouth 2 times daily. | tablet | | 3/20 | 2/20 | ntinu | | (TOPROL-XL) 50 mg 24 | | | | 20 | 20 | ed | | hr tablet | | | | | | (Reor | | | | | | | | davis | | | | | | | | (no | | | | | | | | Cance | | | | | | | | l Rx | | | | | | | | msg)) | + + + +---------+------+------+-------+ Active Problems + + + | Problem | Noted Date | + + + | Sinus tachycardia by electrocardiogram | 01/10/2020 | + + + | New onset left bundle branch block (LBBB) | 01/10/2020 | + + + | History of sleep apnea | 12/17/2019 | + + + | Paroxysmal A-fib | 12/16/2019 | + + + | Bradycardia | 11/04/2015 | + + + | Schizoaffective disorder, bipolar type | 03/09/2015 | + + + | Benign essential HTN | 05/24/2014 | + + + | Chest pain | 05/24/2014 | + + + + + | Overview: replaced due to ICD-10 go-live | + + + + + | Fatty liver disease, nonalcoholic | 04/13/2013 | + + + | Female stress incontinence | 04/13/2013 | + + + | Bipolar affective disorder | 04/13/2013 | + + + | Schizoaffective disorder | 04/13/2013 | + + + | Stress hyperglycemia | 04/13/2013 | + + + | Obesity, Class III, BMI 40-49.9 (morbid obesity) | 06/06/2012 | + + + | Mild hyperlipidemia | 03/29/2012 | + + + | Poorly controlled type 2 diabetes mellitus | 03/29/2012 | + + + | LUMBAR DISC DISPLACEMENT | | + + + | History of hypothyroidism | | + + + | GERD | | + + + | DEGENERATIVE DISC DISEASE, LUMBAR SPINE | | + + + | DISTURBANCE OF SKIN SENSATION | | + + + | History of stomach ulcers | | + + + | Gastric reflux | | + + + | Anxiety | | + + + | Irregular heartbeat | | + + + | Depression | | + + + | Migraine | | + + + | Schizophrenia | | + + + | History of stroke | | + + + Resolved Problems + + + + | Problem | Noted | Resolved | | | Date | Date | + + + + | Lumbar back pain | 02/23/20 | | | | 19 | 0 | + + + + | ROGERS on CPAP | 03/09/20 | | | | 15 | 0 | + + + + | Dyslipidemia | 04/13/20 | | | | 13 | 0 | + + + + | Morbid obesity | 04/13/20 | | | | 13 | 0 | + + + + | Obstructive sleep apnea syndrome | 04/13/20 | | | | 13 | 0 | + + + + + + | Overview: CPAP | + + + + + + | Sinusitis | 03/29/20 | | | | 12 | 0 | + + + + | Obstructive sleep apnea | 02/28/20 | | | | 12 | 0 | + + + + | OSTEOARTHRITIS, KNEES, BILATERAL | 01/27/20 | | | | 12 | 0 | + + + + | Hypertension | | | | | | 0 | + + + + | BACK PAIN, LUMBAR, WITH RADICULOPATHY | | | | | | 0 | + + + + | Impaired fasting glucose | | | | | | 0 | + + + + | SCHIZOAFFECTIVE DISORDER, BIPOLAR | | | | | | 0 | + + + + | Knee pain, bilateral | | | | | | 0 | + + + + | BACK PAIN, LUMBAR | | | | | | 0 | + + + + | SOMATIC DYSFUNCTION, SPINE, SACRAL | | | | | | 0 | + + + + | Spinal stenosis, lumbar | | | | | | 0 | + + + + | Neuropathy | | | | | | 0 | + + + + | Anemia | | | | | | 0 | + + + + | Neuropathy | | | | | | 0 | + + + + | Sleep apnea | | | | | | 0 | + + + + | Thyroid disease | | | | | | 0 | + + + + Encounters +--------+ + + + + | Date | Type | Specialty | Care Team | Description | +--------+ + + + + | 05/23/ | Telephone | Cardiology | Brett Peterson DO | Chest Pain | | 2019 | | | | | +--------+ + + + + | 05/19/ | Telephone | Cardiology | Dora De La Torre | Other (Cancel | | 2019 | | | CAR[place] | appointment) | +--------+ + + + + | 05/08/ | Telephone | Cardiology | Dora De La Torre | Testing | | 2020 | | | [place] | | +--------+ + + + + | 05/01/ | Telephone | Cardiology | Dora De La Torre | Medication Question | | 2020 | | | [place] | | +--------+ + + + + | 04/24/ | Office | Cardiology | Dora De La Torre | Left bundle branch | | 2020 | Visit | | [place] | block (Primary Dx); | | | | | | Paroxysmal A-fib | | | | | | ([facility]); Mild | | | | | | hyperlipidemia; | | | | | | Benign essential | | | | | | HTN; Poorly | | | | | | controlled type 2 | | | | | | diabetes mellitus | | | | | | ([facility]); Syncope, | | | | | | unspecified syncope | | | | | | type; History of | | | | | | sleep apnea; History | | | | | | of hypothyroidism; | | | | | | History of stroke; | | | | | | Schizoaffective | | | | | | disorder, bipolar | | | | | | type ([facility]); Rapid | | | | | | palpitations; | | | | | | Obstructive sleep | | | | | | apnea syndrome; | | | | | | Psychophysiological | | | | | | insomnia | +--------+ + + + + | Office | Cardiology | Brett Peterson DO | Left bundle branch | | 2020 | Visit | | | block (Primary Dx); | | | | | | Benign essential | | | | | | HTN; New onset left | | | | | | bundle branch block | | | | | | (LBBB); Obesity, | | | | | | Class III, BMI | | | | | | 40-49.9 (morbid | | | | | | obesity) (HCC); | | | | | | History of atrial | | | | | | fibrillation; | | | | | | History of sleep | | | | | | apnea | +--------+ + + + + from [...] on file | | + + + Last Filed Vital Signs + + + + + | Vital Sign | Reading | Time Taken | Comments | + + + + + | Blood Pressure | 122/80 | 04/24/2020 11:19 AM | | | | | PDT | | + + + + + | Pulse | 84 | 04/24/2020 11:19 AM | | | | | [...] + + + | Oxygen Saturation | 95% | 04/24/2020 11:19 AM | | | | | PDT | | + + + + + | Inhaled Oxygen | - | - | | | Concentration | | | | + + + + + | Weight | 123 kg (271 lb 3.2 | 04/24/2020 11:19 AM | | | | oz) | PDT | | + + + + + | Height | 170.2 cm (5' 7") | 04/24/2020 11:19 AM | | | | | PDT | | + + + + + | Body Mass Index | 42.48 | 04/24/2020 11:19 AM | | | | | PDT | | + + + + + Plan of Treatment +--------+ + + + + | Date | Type | Specialty | Care Team | Description | +--------+ + + + + | 05/29/ | Procedure | Cardiology | Dora De La Torre | | | 2019 | visit | | CAR[place]endez [address] | | | | | | [address] | | | | | | [place] [address] | | | | | | [phone] | | | | | | | | +--------+ + + + + | 08/28/ | Office | Cardiology | Britt Dora | | | 2020 | Visit | | CAR[place] Mendez [address] | | | | | | [address] | | | | | | [place] [address] | | | | | | [phone] | | | | | | | | +--------+ + + + + + + + + + | Health Maintenance | Due Date | Last | Comments | | | | Done | | + + + + + | Hepatitis C | | | | | Screening | 5 | | | + + + + + | Medication | | | | | Management | 5 | | | + + [...] + + | Hemoglobin A1c | | 07/29/20 | | | Screening | 5 | 14 | | + + + + + | Med Mgmt: HBA1C | | 07/29/20 | | | | 5 | 14 | | + + + + + | Med Mgmt: HCT | | 07/06/20 | | | | 6 | 15, | | | | | 02/27/20 | | | | | 15, | | | | | 02/27/20 | | | | | 15 | | + + + + + | Med Mgmt: HGB | | 07/06/20 | | | | 6 | 15, | | | | | 02/27/20 | | | | | 15, | | | | | 02/27/20 | | | | | 15 | | + + + + + | Med Mgmt: PLT | | 07/06/20 | | | | 6 | 15, | | | | | 02/27/20 | | | | | 15, | | | | | 02/27/20 | | | | | 15 | | + + + + + | Med Mgmt: RBC | | 07/06/20 | | | | 6 | 15, | | | | | 02/27/20 | | | | | 15, | | | | | 02/27/20 | | | | | 15 | | + + + + + | Med Mgmt: WBC | | 07/06/20 | | | | 6 | 15, | | | | | 02/27/20 | | | | | 15, | | | | | 02/27/20 | | | | | 15 | | + + + + + [...] | + + + + + | Med Mgmt: HDL | | 07/29/20 | | | | 9 | 14 | | + + + + + | Med Mgmt: LDL | | 07/29/20 | | | | 9 | 14 | | + + + + + | Med Mgmt: Total | | 07/29/20 | | | Cholesterol | 9 | 14 | | + + + + + | Med Mgmt: | | 07/29/20 | | | Triglycerides | 9 | 14 | | + + + + + | Vaccine: Influenza | | | | | (#1) | 0 | | | + + + + + | Vaccine: | Completed | 05/29/20 | | | Pneumococcal 19-64 | | 13 | | + + + + + [...] | [employer] - | | 04/02/ | [id number] | | 5ccImplanted: Qty: 1 on | | Spine | MEDT | | 2019 | | | 07/02/2014 by Frandy Teresa | | Lumbar | | | | /[id number] | | ADO at [facility] | | | | | | 6-020 | | [facility] | | | | | | / | + +------+--------+ +--------+--------+--------+ | Graft Infuse Bone Kit Xxs - | | N/A: | SOFAMOR | | 01/21/ | [id number] | | [id number]: Qty: 1 on | | Spine | DANEK - DIV | | 2014 | 0 / | | 07/02/2014 by Frandy Teresa | | Lumbar | [employer] | | | /[id number] | | DO Ronak at [facility] | | | - SFDK | | | [id number] | | [facility] | | | | | | | + +------+--------+ +--------+--------+--------+ | Imp Spn Spcr Cpstn 8x26mm - | | N/A: | SOFAMOR | | 01/11/ | [id number] | | [id number]: Qty: 1 on | | Spine | DANEK - DIV | | 2021 | 6 / | | 07/02/2014 by Frandy Teresa | | Lumbar | [employer] | | | /[id number] | | DO Ronak at [facility] | | | - SFDK | | | 928 | | [facility] | | | | | | | + +------+--------+ +--------+--------+--------+ | Set Scrw Ns G5 Brk Off Ti | | N/A: | SOFAMOR | | | [id number] | | 4.75 - [id number]: | | Spine | DANEK - DIV | | | 0 / / | | Qty: 4 on 07/02/2014 by | | Lumbar | [employer] | | | | | Frandy Teresa DO at [facility] | | | - SFD[facility] | | | | | [facility] | | | | | | | | [facility] | | | | | | | + +------+--------+ +--------+--------+--------+ | RodImplanted: Qty: 1 on | | N/A: | | | | [id number] | | 07/02/2014 by Frandy Teresa | | Spine | | | | 540 / | | A, DO at [facility] | | Lumbar | | | | / | | [facility] | | | | | | | + +------+--------+ +--------+--------+--------+ | RodImplanted: Qty: 1 on | | N/A: | MEDTROL - | | | [id number] | | 07/02/2014 by Frandy Teresa | | Spine | MDTR | | | 545 / | | A, DO at [facility] | | Lumbar | | | | / | | [facility] | | | | | | | + +------+--------+ +--------+--------+--------+ | Screw 7.5x50mm Sextant - | | N/A: | [employer] - | | | [id number] | | [id number]: Qty: 1 on | | Spine | MEDT | | | [id number] | | 07/02/2014 by Fradny Teresa | | Lumbar | | | | / / | | DO Ronak at [facility] | | | | | | | | [facility] | | | | | | | + +------+--------+ +--------+--------+--------+ | Cannulated ScrewImplanted: | | N/A: | MEDTROL - | | | [id number] | | Qty: 1 on 07/02/2014 by | | Spine | MDTR | | | [id number] | | Frandy Teresa DO at [facility] | | Lumbar | | | | / / | | [facility] | | | | | | | | [facility] | | | | | | | + +------+--------+ +--------+--------+--------+ | Cannulated ScrewImplanted: | | N/A: | [employer]IC - | | | [id number] | | Qty: 1 on 07/02/2014 by | | Spine | MEDT | | | [id number] | | Frandy Teresa DO at [facility] | | Lumbar | | | | / / | | [facility] | | | | | | | | [facility] | | | | | | | + +------+--------+ +--------+--------+--------+ Procedures + +--------+ + + + | Procedure Name | Priori | Date/Time | Associated Diagnosis | Comments | | | ty | | | | + +--------+ + + + | LABS - EXTERNAL SCAN | | 04/20/2020 | | Results for this | | | | 12:00 AM | | procedure are in the | | | | PDT | | results section. | + +--------+ + + + | ECG 12 LEAD | Routin | 04/03/2020 | Left bundle branch | Results for this | | | e | 10:23 AM | block | procedure are in the | | | | PDT | | results section. | + +--------+ + + + from Last 3 Months Results LABS - EXTERNAL SCAN (04/20/2020 12:00 AM PDT) + + + | Narrative | Performed At | + + + | Ordered by an | | | unspecified provider. | | + + + ECG 12 lead (04/03/2020 10:23 AM PDT) + + + + + + | Component | Value | Ref Range | Performed | Pathologist | | | | | At | Signature | + + + + + + | VENTRICULAR | 92 | BPM | [facility] | | | RATE EKG | | | | | + + + + + + | ATRIAL RATE | 92 | BPM | [facility] | | + + + + + + | P-R | 208 | ms | [facility] | | | INTERVAL | | | | | + + + + + + | QRS | 136 | ms | [facility] | | | DURATION | | | | | + + + + + + | Q-T | 408 | ms | [facility] | | | INTERVAL | | | | | + + + + + + | Q-T | 504 | ms | [facility] | | | INTERVAL | | | | | | (CORRECTED) | | | | | + + + + + + | P WAVE AXIS | 64 | degrees | [facility] | | + + + + + + | QRS AXIS | -18 | degrees | [facility] | | + + + + + + | T AXIS | 78 | degrees | [facility] | | + + + + + + | INTERPRETAT | Normal sinus rhythmLeft | | [facility] | | | ION TEXT | bundle branch | | | | | | blockAbnormal ECGWhen | | | | | | compared with ECG of | | | | | | 14-FEB-2020 15:11,No | | | | | | significant change was | | | | | | foundConfirmed by NNEKA | | | | | | BRETT DONNELLY (1994) on | | | | | | 04/07/2020 12:54:47 PM | | | | + + + [...] | | | + +---------+ + + from Last 3 Months Insurance + +--------+ +--------+ +---------+--------+ | Payer | Benefi | Subscriber | Effect | Phone | Address | Type | | | t Plan | ID | chris | | | | | | / | | Dates | | | | | | Group | | | | | | + +--------+ +--------+ +---------+--------+ | MEDICARE | MEDICA | [id number] | 02/22/20 | [phone] | | Medica | | | RE | | 09-Pre | 5 | | re | | | PART A | | sent | | | | | | AND B | | | | | | + +--------+ +--------+ +---------+--------+ | MEDICARE | MEDICA | [id number] | 02/22/20 | [phone] | | Medica [...] Cindy Arndt | Person | Self | [birth year] | [address] | | | al/Fam | | 1955 | [phone] | [address] [place], [place] | | | [place]onte | | | 1 (Home) | [address] | + +--------+ +--------+ + + | Cindy Arndt | Person | Self | [birth year] | [address] | | | al/Fam | | 1955 | [phone] | [address] [place] | | | [place] | | | 1 (Home) | [address] | + +--------+ +--------+ + + Advance Directives + + + + + | Type | Date Recorded | Patient | Explanation | | | | Director Special Education | | + + + + + | Power of | | | | | Retail Cosmetics Sales Beauty Advisor | | | | + + + [...]
--- OUTSIDE RECORDS SUMMARY | ~2020-05-23 | XMS | Encounter Summary ---
Demographics + + + | Address | [address] | | | [place] [address] | + + + | Home Phone [...] [place] | | | | | [address] | | + + + + + Care Team Providers + +------+ + | Care Gate Operator Name | Role | Phone | + +------+ + | Basim Bolanos MD | PCP | | + +------+ + Encounter Details +--------+ + + + + | Date | Type | Department | Care Team | Description | +--------+ + + + + | 04/18/ | Abstract | [facility] [place] | [facility], | | | 2012 | | GASTROENTEROLOGY | [place]O Thomas [address] | | | | | [address] | [address] | | | | | [address] [place], [place] | [place], [place] | | | | | [address] | [address] | | | | | [phone] | | | +--------+ + + + [...] | | | | | [place] [address] | | | | | | [phone] | | | | | | | | +--------+ + + + + | 08/28/ | Office | Cardiology | Dora De La Torre | | | 2020 | Visit | | CAROLINE Mendez [address] | | | | | | [address] | | | | | | [place] [address] | | | | | | [phone] | | | | | | | | +--------+ + + + + documented as of this encounter Visit Diagnoses Not on filedocumented in this encounter"
--- OUTSIDE RECORDS SUMMARY | ~2020-05-23 | XMS | Encounter Summary ---
Demographics + + + | Address | [address] | | | [place] [address] | + + + | Home Phone [...] [place] | | | | | [address] | | + + + + + Care Team Providers + +------+ + | Care Mine Supervisor Name | Role | Phone | + +------+ + | Natalee Andersen NP | PCP | | + +------+ + Encounter Details +--------+ + + + + | Date | Type | Department | Care Team | Description | +--------+ + + + + | 09/27/ | Hospital | [facility] | Frandy Teresa, | Lumbar spondylosis; | | 2013 | Encounter | MED [facility] XRAY [address] | DO [address] | S/P lumbar fusion | | | | [place] | [address] [place], [place] | | | | | [place] [address] | [address] | | | | | [phone] | | | +--------+ + + + [...] + + + +---------+ + + | Johnston-3 Fatty | Take 1,000 mg by | [...] [address] | | | | | | [place] [address] | | | | | | [phone] | | | | | | | | +--------+ + + + + | 08/28/ | Office | Cardiology | Dora De La Torre | | | 2019 | Visit | | CAROLINE Mendez [address] | | | | | | [address] | | | | | | [place] [address] | | | | | | [phone] | | | | | | | | +--------+ + + + + documented as of this encounter Procedures + +--------+ + + + | Procedure Name | Priori | Date/Time | Associated Diagnosis | Comments | | | ty | | | | + +--------+ + + + | XR LUMBAR SPINE 2 OR | Routin | 09/27/2014 | Lumbar spondylosis | Results for this | | 3 VW | e | 10:18 AM | S/P lumbar fusion | procedure are in the | | | | PST | | results section. | + +--------+ + + + documented in this encounter Results XR Lumbar Spine 2 [...] + | MISCELLANEOUS LAB | | | [phone] | + +---------+ + + | MISCELANIOUS LAB | | | [phone] | + +---------+ + + documented in this encounter Visit Diagnoses + + | Diagnosis | + + | Lumbar spondylosis Lumbosacral spondylosis without myelopathy | + + | S/P lumbar fusion Arthrodesis status | + + documented in this encounter"
--- OUTSIDE RECORDS SUMMARY | ~2020-05-23 | XMS | Encounter Summary ---
Demographics + + + | Address | [address] | | | [place] [address] | + + + | Home Phone | | + + + | Preferred Language | Unknown | + + + | Marital Status | Single | + + + | Sabianist Affiliation | Unknown | + + + | Race | White | + + + | Ethnic Group | Not or | + + + Author + + + | Author | [facility] | + + + | Organization | [facility] | + + + | Address | Unknown | + + + | Phone | Unavailable | + + + Support + + + + + | Name | Relationship | Address | Phone | + + + + + | Kelsy Bautista | ECON | [address] | | | | | [place] | | | | | [address] | | + + + + + Care Team Providers + +------+ + | Care Ict Programmer Name | Role | Phone | + [...] [id number] | | | | | | [place], [place] | | | | | | [address] | | | | | | [phone] | | | +--------+ + + + [...] | + + + + + | [facility] | [address] | [place] [address] | | | PATHOLOGY | [address] [...] Re | | | | | | [id number] | | | | + + + + + + + + | Specimen | + + | | + + + + + + + | Performing | Address | City/State/Zipcode | Phone Number | | Organization | | | | + + + + + | [facility] | [address] | [place] [address] | | | PATHOLOGY | [address] [...] Re | | | | | | [address] | | | | + + + + + + + + | Specimen | + + | | + + + + + + + | Performing | Address | City/State/Zipcode | Phone Number | | Organization | | | | + + + + + | [facility] | [address] | [place] [address] | | | PATHOLOGY | [address] [...] Re | | | | | | [address] | | | | + + + + + + + + | Specimen | + + | | + + + + + + + | Performing | Address | City/State/Zipcode | Phone Number | | Organization | | | | + + + + + | [facility] | [address] | [place] [address] | | | PATHOLOGY | [address] [...] Re | | | | | | [address] | | | | + + + + + + + + | Specimen | + + | | + + + + + + + | Performing | Address | City/State/Zipcode | Phone Number | | Organization | | | | + + + + + | [facility] | [address] | [place] [address] | | | PATHOLOGY | [address] | | | + + + + + documented in this encounter Visit Diagnoses Not on filedocumented in this encounter"
--- OUTSIDE RECORDS SUMMARY | ~2020-05-23 | XMS | Encounter Summary ---
Demographics + + + | Address | [address] | | | [place] [address] | + + + | Home Phone | | + + + | Preferred Language | Unknown | + + + | Marital Status | | + + + | Yazidi Affiliation | 1013 | + + + | Race | Unknown | + + + | Ethnic Group | Unknown | + + + Author + + + | Author | [facility] | | | and [place] | + + + | Organization | [facility] | | | and [place] | + + + | Address | Unknown | + + + | Phone | Unavailable | + + + Support + + + + + | Name | Relationship | Address | Phone | + + + + + | Araceli Sibley | ECON | [place] | | | | | [address] | | + + + + + Care Team Providers + +------+ + | Care Photoengraving Helper Name | Role | Phone | [...] + + | 08/20/ | Documentati | [facility] | Katharine Moncada, | Other (urgent | | 2019 | on | CARDIOLOGY [place] | Technologist | report) | | | | [address] | | | | | | [place] | | | | | | [address] | | | | | | [phone] | | | +--------+ + + + [...] | | | | | [place] [address] | | | | | | [phone] | | | | | | | | +--------+ + + + + | 08/28/ | Office | Cardiology | [facility] | | | 2020 | Visit | | [address] | | | | | | [address] | | | | | | [place] [address] | | | | | | [phone] | | | | | | | | +--------+ + + + + documented as of this encounter Visit Diagnoses Not on filedocumented in this encounter"
--- OUTSIDE RECORDS SUMMARY | ~2020-05-23 | XMS | Encounter Summary ---
Demographics + + + | Address | [address] | | | [place] [address] | + + + | Home Phone [...] + | Araceli Sibley | ECON | [place], [place] | | | | | [address] | | + + + + + Care Team Providers + +------+ + | Care Hardware Design Engineer Name | Role | Phone | + +------+ + PCP | Unavailable | + +------+ + Encounter Details +--------+ + + + + | Date | Type | Department | Care Team | Description | +--------+ + + + + | 03/26/ | Hospital | [facility] | | | | 2001 | Encounter | [facility] | | | | | | [address] | | | | | | [place] | | | | | | [address] | | | | | | [phone] | | | +--------+ + + + [...] | | | | | | [place] [address] | | | | | | [phone] | | | | | | | | +--------+ + + + + | 08/28/ | Office | Cardiology | [facility] | | | 2020 | Visit | | [address] | | | | | | [address] | | | | | | [place] [address] | | | | | | [phone] | | | | | | | | +--------+ + + + + documented as of this encounter Visit Diagnoses Not on filedocumented in this encounter"
--- OUTSIDE RECORDS SUMMARY | ~2020-05-23 | XMS | Encounter Summary ---
Demographics + + + | Address | [address] | | | [place] [address] | + + + | Home Phone | | + + + | Preferred Language | Unknown | + + + | Marital Status | | + + + | Church Affiliation | 1013 | + + + | Race | Unknown | + + + | Ethnic Group | Unknown | + + + Author + + + | Author | [facility] | | | and [place] | + + + | Organization | [facility] | | | and [place] | + + + | Address | Unknown | + + + | Phone | Unavailable | + + + Support + + + + + | Name | Relationship | Address | Phone | + + + + + | Araceli Sibley | ECON | [place] | | | | | [address] | | + + + + + Care Team Providers + +------+ + | Care Supervisor Buffing And Pasting Name | Role | Phone | + [...] + + | 08/14/ | Telephone | [facility] | Ashley Chávez | Other (Patient was | | 2018 | | CARDIOLOGY [place]ad, Sales And Marketing Coordinator | anxious about urgent | | | | [address] | | reports. ) | | | | [place] | | | | | | [address] | | | | | | [phone] | | | +--------+ + + + [...] Miscellaneous Notes Telephone Encounter - Ashley Chávez, Sales And Marketing Coordinator - 08/14/2019 9:16 AM Seferino foster called [...] for the time being. Patient stated understanding. JDW:GREEN MARKETER-AAMA. [facility] umented in this encounter Plan of [...] | | | | | [place] [address] | | | | | | [phone] | | | | | | | | +--------+ + + + + | 08/28/ | Office | Cardiology | Dora De La Torre | | | 2020 | Visit | | [address] | | | | | | [address] | | | | | | [place] [address] | | | | | | [phone] | | | | | | | | +--------+ + + + + documented as of this encounter Visit Diagnoses Not on filedocumented in this encounter"
--- OUTSIDE RECORDS SUMMARY | ~2020-05-23 | XMS | Encounter Summary ---
Demographics + + + | Address | [address] | | | [place] [address] | + + + | Home Phone [...] [place] | | | | | [address] | | + + + + + Care Team Providers + +------+ + | Care Supervisor Assembly And Packing Name | Role | Phone | + [...] | | | spondylolist | | [address] | | | | | hesis | | [place], | | | | | Spinal | | [place] [address] | | | | | stenosis, | | Phone: | | | | | lumbar | | [phone] | | | | | region, | | Fax: | | | | | without | | [phone] | | | | | neurogenic | [...] | | | | | | | [place] | | | | | | [...] | | | | | | [place] | | | | | | | [...] | | | | | | [place] | | | | | | | [...] + + | 07/02/ | Hospital | [facility] | Frandy Teresa, | Spinal stenosis, | | 2013 | Encounter | MED CTR XRAY [address] | DO [address] | lumbar region, | | | | [place] | [address] [place], [place] | without neurogenic | | | | [place] [address] | [address] | claudication | | | | [phone] | | (Primary Dx) | +--------+ + [...] + + + +---------+ + + | [place]-3 Fatty | Take 1,000 mg by | [...] [address] | | | | | | [place] [address] | | | | | | [phone] | | | | | | | | +--------+ + + + + | 08/28/ | Office | Cardiology | Britt Dora | | | 2019 | Visit | | [address] | | | | | | [address] | | | | | | [place] [address] | | | | | | [phone] | | | | | | | [...] + documented in this encounter Results NATHAN Rodríguez (07/02/2014 2:11 PM PDT) + + | [...]
--- OUTSIDE RECORDS SUMMARY | ~2020-05-23 | XMS | Encounter Summary ---
Demographics + + + | Address | [address] | | | [place] [address] | + + + | Home Phone | | + + + | Preferred Language | Unknown | + + + | Marital Status | | + + + | Orthodox Affiliation | 1013 | + + + | Race | Unknown | + + + | Ethnic Group | Unknown | + + + Author + + + | Author | [facility] | | | and [place] | + + + | Organization | [facility] | | | and [place] | + + + | Address | Unknown | + + + | Phone | Unavailable | + + + Support + + + + + | Name | Relationship | Address | Phone | + + + + + | Araceli Siblye | ECON | [place] | | | | | [address] | | + + + + + Care Team Providers + +------+ + | Care Coder Name | Role | Phone | + [...] + + | 09/10/ | Documentati | [facility] | Katharine Moncada, | Other (urgent | | 2019 | on | CARDIOLOGY [place] | Technologist | report) | | | | [address] | | | | | | [place] | | | | | | [address] | | | | | | [phone] | | | +--------+ + + + [...] | | | | | [place] [address] | | | | | | [phone] | | | | | | | | +--------+ + + + + | 08/28/ | Office | Cardiology | Dora De La Torre | | | 2020 | Visit | | [address] | | | | | | [address] | | | | | | [place] [address] | | | | | | [phone] | | | | | | | | +--------+ + + + + documented as of this encounter Visit Diagnoses Not on filedocumented in this encounter"
--- OUTSIDE RECORDS SUMMARY | ~2020-05-23 | XMS | Encounter Summary ---
Demographics + + + | Address | [address] | | | [place] [address] | + + + | Home Phone [...] [place] | | | | | [address] | | + + + + + Care Team Providers + +------+ + | Care Office Professionals Name | Role | Phone | + +------+ + | Natalee Andersen NP | PCP | | + +------+ + Encounter Details +--------+ + + + + | Date | Type | Department | Care Team | Description | +--------+ + + + + | 05/02/ | Hospital | [facility] | Frandy Teresa, | Back pain | | 2014 | Encounter | MED CTR XRAY [address] | DO [address] | | | | | [place] | [address] | | | | | [place] [address] | [address] | | | | | [phone] | | | +--------+ + + + [...] +---------+ + + | metformin | Take 500 mg by mouth | | 0 | | | | (GLUMETZA) 500 MG 24 | 2 times daily (with | | | | 4 | | hr tablet | breakfast & | | | | | | | dinner). | | | | | + + [...] + + + +---------+ + + | [place]-3 Fatty | Take 1,000 mg by | [...] | 05/29/ | Procedure | Cardiology | Britt Dora | | | 2019 | visit | | [address] | | | | | | [address] | | | | | | [place] [address] | | | | | | [phone] | | | | | | | | +--------+ + + + + | 08/28/ | Office | Cardiology | Dora De La Torre | | | 2019 | Visit | | [address] | | | | | | [address] | | | | | | [place] [address] | | | | | | [phone] | | | | | | | | +--------+ + + + + documented as of this encounter Procedures + +--------+ + + + | Procedure Name | Priori | Date/Time | Associated Diagnosis | Comments | | | ty | | | | + +--------+ + + + | XR LUMBAR SPINE 2 OR | Routin | 05/02/2014 | Back pain | Results for this | | 3 VW | e | 10:21 AM | | procedure are in the [...] + | MISCELLANEOUS LAB | | | [phone] | + +---------+ + + | MISCELANIOUS LAB | | | [phone] | + +---------+ + + documented in this encounter Visit Diagnoses + + | Diagnosis | + + | Back pain Backache, unspecified | + + documented in this encounter"
--- OUTSIDE RECORDS SUMMARY | ~2020-05-23 | XMS | Encounter Summary ---
Demographics + + + | Address | [address] | | | [place] [address] | + + + | Home Phone [...] [place], [place] | | | | | [address] | | + + + + + Care Team Providers + +------+ + | Care System Developer Associate Manager Name | Role | Phone | + +------+ + PCP | Unavailable | + +------+ + Encounter Details +--------+ + + + + | Date | Type | Department | Care Team | Description | +--------+ + + + + | 01/06/ | Hospital | [facility] | | | | 1992 | Encounter | MED CTR LABORATORY | | | | | | [address] | | | | | | [place] | | | | | | [address] | | | | | | [phone] | | | +--------+ + + + [...] | | | | | [place] [id number] | | | | | | [phone] | | | | | | | | +--------+ + + + + | 08/28/ | Office | Cardiology | Dora De La Torre | | | 2020 | Visit | | [address] | | | | | | [address] | | | | | | [place] [id number] | | | | | | [phone] | | | | | | | | +--------+ + + + + documented as of this encounter Visit Diagnoses Not on filedocumented in this encounter"
--- OUTSIDE RECORDS SUMMARY | ~2020-05-23 | XMS | Encounter Summary ---
Demographics + + + | Address | [address] | | | [place] [address] | + + + | Home Phone [...] [place], [place] | | | | | [address] | | + + + + + Care Team Providers + +------+ + | Care Independent Consultant Name | Role | Phone | + +------+ + PCP | Unavailable | + +------+ + Encounter Details +--------+ + + + + | Date | Type | Department | Care Team | Description | +--------+ + + + + | 06/30/ | Hospital | [facility] | | | | 2000 | Encounter | MED CTR EMERGENCY | | | | | | [address] | | | | | | [place] | | | | | | [address] | | | | | | [phone] | | | +--------+ + + + [...] | | | | | | [place] [address] | | | | | | [phone] | | | | | | | | +--------+ + + + + | 08/28/ | Office | Cardiology | Dora De La Torre | | | 2020 | Visit | | [address] | | | | | | [address] | | | | | | [place] [address] | | | | | | [phone] | | | | | | | | +--------+ + + + + documented as of this encounter Visit Diagnoses Not on filedocumented in this encounter"
--- OUTSIDE RECORDS SUMMARY | ~2020-05-23 | XMS | Encounter Summary ---
Demographics + + + | Address | [address] | | | [place] [address] | + + + | Home Phone [...] [place] | | | | | [address] | | + + + + + Care Team Providers + +------+ + | Care Dry Pan Operator Name | Role | Phone | [...] + + | 03/26/ | Telephone | [facility] | Thierry Fry | Medication Prior | | 2014 | | MEDICINE [address] [place] [address] | MD Lisa [address] | Authorization | | | | [employer], | [employer] [place] | (Dexilant 60Mg) | | | | [place] [address] | [address] | | | | | [phone] | | | +--------+ + + + [...] were not received I contacted insurance ID# [id number] This has been denied. The patient must try and fail 2 of the following Omeprazole Protonix Prevacid Nexium Please advise elepho ne Encounter - Saba Acosta Cert MA - 03/26/2015 1:32 PM PDTCalled and requested a prior authorization Requested for via fax from FP Complete Prior auth medication Dexilant 60MgElectronically signed by [...] | | | | | [place] [address] | | | | | | [phone] | | | | | | | | +--------+ + + + + | 08/28/ | Office | Cardiology | Dora De La Torre | | | 2020 | Visit | | [address] | | | | | | [address] | | | | | | [place] [address] | | | | | | [phone] | | | | | | | | +--------+ + + + + documented as of this encounter Visit Diagnoses Not on filedocumented in this encounter"
--- OUTSIDE RECORDS SUMMARY | ~2020-05-23 | XMS | Encounter Summary ---
Demographics + + + | Address | [address] | | | [place] [address] | + + + | Home Phone [...] [place], [place] | | | | | [address] | | + + + + + Care Team Providers + +------+ + | Care Machine Records Units Supervisor Name | Role | Phone | + +------+ + PCP | Unavailable | + +------+ + Encounter Details +--------+ + + + + | Date | Type | Department | Care Team | Description | +--------+ + + + + | 12/31/ | Hospital | [facility] | | | | 1996 | Encounter | MED CTR XRAY [address] | | | | | [address] | | | | | | [place] [address] | | | | | | [phone] | | | +--------+ + + + [...] | | | | | [place] [address] | | | | | | [phone] | | | | | | | | +--------+ + + + + | 08/28/ | Office | Cardiology | Dora De La Torre | | | 2019 | Visit | | [address] | | | | | | [address] | | | | | | [place] [address] | | | | | | [phone] | | | | | | | | +--------+ + + + + documented as of this encounter Visit Diagnoses Not on filedocumented in this encounter"
--- OUTSIDE RECORDS SUMMARY | ~2020-05-23 | XMS | Encounter Summary ---
Demographics + + + | Address | [address] | | | [place] [address] | + + + | Home Phone [...] [place] | | | | | [address] | | + + + + + Care Team Providers + +------+ + | Care Waxed Bag Machine Operator Name | Role | Phone [...] | | [address] | [place], [place] | | | | | [place], [place] | [address] | | | | | [address] | | | | | | [phone] | | | +--------+ + + + [...] [address] | | | | | | [place] [address] | | | | | | [phone] | | | | | | | | +--------+ + + + + | 08/28/ | Office | Cardiology | Dora De La Torre | | | 2019 | Visit | | [address] | | | | | | [address] | | | | | | [place] [address] | | | | | | [phone] | | | | | | | [...] 0.83 m/s | | | MV Dec Mellette: 2.85 m/s2 MV DecT: 282.89 ms MV E Teodoro: 0.80 | | | m/s MV E/A Ratio: 0.96 E/E' Sept: 12.59 E' Lat: 0.08 m/s | | | E' Sept: 0.06 m/s RAP: 10 mmHg RV S': 0.11 m/s RVSP: | | | 27.96 mmHg TR maxP.96 mmHg TR Vmax: 2.11 m/s | | | Waste/Materials Exchange Specialist: Authenticated by: Desiree Peterson MD Report Date/Time: | | | -- [id number]:31:1 | | + + + + + | Procedure Note | + + | Manohar Martinez Conversion - 06/14/2019 1:12 PM PDT Patient Name: Claudia Arndt | | : 1955 Performing Physician: Desiree Peterson | | INDICATIONS S | | OB CONCLUSIONS 1. [...] (A-L): 19.60 | | ml/m2LAAs A2C: 15.44 [id number] A-L A2C: 43.84 mlLAESV MOD A2C: 42.12 mlLALs A2C: | | 4.61 cmLAAs A4C: 14.18 mv2JNQVS A-L A4C: 38.73 mlLAESV MOD A4C: 37.04 mlLALs A4C: | | 4.41 cmRAAs: 12.15 [id number] A-L: 28.54 mlRAESV MOD: 28.66 mlRALs: 4.39 | | cmTAPSE: 2.42 cmAV Env.Ti: 293.94 msAV maxP.18 mmHgAV meanP.09 mmHgAV | | Vmax: 1.88 m/Eddie Vmean: 1.25 m/Eddie VTI: 36.84 cmAVA Vmax: 2.06 cm2AVA (VTI): | | 2.24 vb4EWAY Vmax: 0.00 cm2/m2AVAI (VTI): 0.00 cm2/m2LVOT Env.Ti: 299.59 msLVOT | | maxP.52 mmHgLVOT meanP.65 mmHgLVSI Dopp: 38.55 ml/m2LVSV Dopp: 82.89 | | mlLVOT Vmax: 1.27 m/sLVOT Vmean: 0.91 m/sLVOT VTI: 27.27 cmMV A Teodoro: 0.83 m/sMV | | Dec Mellette: 2.85 m/s2MV DecT: 282.89 msMV E Teodoro: 0.80 m/sMV E/A Ratio: 0.96E/E' | | Sept: 12.59E' Lat: 0.08 m/sE' Sept: 0.06 m/sRAP: 10 mmHgRV S': 0.11 m/sRVSP: | | 27.96 mmHgTR maxP.96 mmHgTR Vmax: 2.11 m/s Waste/Materials Exchange Specialist:Authenticated by: | | Desiree Peterson MDReport Date/Time: -- [id number]:[id number] IMPRESSION: 1. Overall left | | ventricular [...] A Teodoro: 0.83 m/s | |MV Dec Mellette: 2.85 m/s2 | |MV DecT: 282.89 ms | |MV E Teodoro: 0.80 m/s | |MV E/A Ratio: 0.96 | |E/E' Sept: 12.59 | |E' Lat: 0.08 m/s | |E' Sept: 0.06 m/s | |RAP: 10 mmHg | |RV S': 0.11 m/s | |RVSP: 27.96 mmHg | |TR maxP.96 mmHg | |TR Vmax: 2.11 m/s | | | |Waste/Materials Exchange Specialist: | |Authenticated by: Desiree Peterson MD | |Report Date/Time: -- [id number]:31:1 | | | |IMPRESSION: | |1. Overall [...]
--- OUTSIDE RECORDS SUMMARY | ~2020-05-23 | XMS | Encounter Summary ---
Demographics + + + | Address | [address] | | | [place] [address] | + + + | Home Phone | | + + + | Preferred Language | Unknown | + + + | Marital Status | | + + + | Quaker Affiliation | 1013 | + + + | Race | Unknown | + + + | Ethnic Group | Unknown | + + + Author + + + | Author | [facility] | | | and [place] | + + + | Organization | [facility] | | | and [place] | + + + | Address | Unknown | + + + | Phone | Unavailable | + + + Support + + + + + | Name | Relationship | Address | Phone | + + + + + | Araceli Sibley | ECON | [place], [place] | | | | | [address] | | + + + + + Care Team Providers + +------+ + | Care Otr Refrigerated Cdl Truck Driver Name | Role | Phone | + +------+ + PCP | Unavailable | + +------+ + Encounter Details +--------+ + + + + | Date | Type | Department | Care Team | Description | +--------+ + + + + | 03/13/ | Hospital | [facility] | | | | 1996 - | Encounter | MED CTR GENERIC OP | | | | | | CONV DEPT [address] | | | | 03/21/ | | [address], | | | | 1996 | | [place] [address] | | | | | | [phone] | | | +--------+ + + + [...] [address] | | | | | | [place] [address] | | | | | | [phone] | | | | | | | | +--------+ + + + + | 08/28/ | Office | Cardiology | Dora De La Torre | | | 2019 | Visit | | [address] | | | | | | [address] | | | | | | [place] [address] | | | | | | [phone] | | | | | | | | +--------+ + + + + documented as of this encounter Visit Diagnoses Not on filedocumented in this encounter"
--- OUTSIDE RECORDS SUMMARY | ~2020-05-23 | XMS | Encounter Summary ---
Demographics + + + | Address | [address] | | | [place] [address] | + + + | Home Phone [...] [place], [place] | | | | | [address] | | + + + + + Care Team Providers + +------+ + | Care Handle Maker Name | Role | Phone | + +------+ + PCP | Unavailable | + +------+ + Encounter Details +--------+ + + + + | Date | Type | Department | Care Team | Description | +--------+ + + + + | 05/25/ | Hospital | [facility] | | | | 1991 | Encounter | MED CTR LABORATORY | | | | | | [address] | | | | | | [place] | | | | | | [address] | | | | | | [phone] | | | +--------+ + + + [...] | | | | | [place] [address] | | | | | | [phone] | | | | | | | | +--------+ + + + + | 08/28/ | Office | Cardiology | Dora De La Torre | | | 2020 | Visit | | [address] | | | | | | [address] | | | | | | [place] [address] | | | | | | [phone] | | | | | | | | +--------+ + + + + documented as of this encounter Visit Diagnoses Not on filedocumented in this encounter"
--- OUTSIDE RECORDS SUMMARY | ~2020-05-23 | XMS | Encounter Summary ---
Demographics + + + | Address | [address] | | | [place] [address] | + + + | Home Phone [...] [place] | | | | | [address] | | + + + + + Care Team Providers + +------+ + | Care Bait Maker Name | Role | Phone | + +------+ + | Natalee Andersen NP | PCP | | + +------+ + Reason for Visit +--------+--------+ + | Reason | Onset | Comments | | | Date | | +--------+--------+ + | Other | 03/04/ | Plavix | | | 2014 | | +--------+--------+ + Encounter Details +--------+ + + + + | Date | Type | Department | Care Team | Description | +--------+ + + + + | 03/04/ | Telephone | [facility] | Baudilio Newman | Other (Plavix) | | 2014 | | NEUROLOGY LAURIE | MD Pollo Need updated | | | | | [address], | address | | | | | [address] [place] | | | | | | [place] [address] | | | | | | [phone] | | | +--------+ + + + [...] this encounter Miscellaneous Notes Telephone Encounter - Keiko Thompson RN - 03/04/2015 9:39 AM PDTPatient called irasemajackson if she still needs to take her Plavix since she was told she did not have a stroke. Per Dr. Newman, patient should remain on Plavix for TIA. Patient verbalized understanding.El ectronically signed by Keiko Thompson RN at 03/04/2015 9:41 AM PDTdocumented in this e ncounter Plan of Treatment +--------+ + + + + | Date | Type | Specialty | Care Team | Description | +--------+ + + + + | 05/29/ | Procedure | Cardiology | Dora De La Torre | | | 2019 | visit | | [address] | | | | | | [address] | | | | | | [place] [address] | | | | | | [phone] | | | | | | | | +--------+ + + + + | 08/28/ | Office | Cardiology | Dora De La Torre | | | 2019 | Visit | | [address] | | | | | | [address] | | | | | | [place] [address] | | | | | | [phone] | | | | | | | | +--------+ + + + + documented as of this encounter Visit Diagnoses Not on filedocumented in this encounter"
--- OUTSIDE RECORDS SUMMARY | ~2020-05-23 | XMS | Encounter Summary ---
Demographics + + + | Address | [address] | | | [place] [address] | + + + | Home Phone [...] [place] | | | | | [address] | | + + + + + Care Team Providers + +------+ + | Care Warehouse Manager Name | Role | Phone | [...] [address] | | | | | [place], [place] | [place] | | | | | [address] | [place] [address] | | | | | [phone] | [phone] | | | | | | | [...] [address] | | | | | | [place] [address] | | | | | | [phone] | | | | | | | | +--------+ + + + + | 08/28/ | Office | Cardiology | Dora De La Torre | | | 2019 | Visit | | [address] | | | | | | [address] | | | | | | [place] [address] | | | | | | [phone] | | | | | | | [...] GIVEN Testing | | | performed at [facility];[address] [place] [address];[place] [address] CULTURE | | | 50,000 TO 100,000 CFU/ML | | | MIXED GRAM POSITIVE HAIDER NO SUSCEPTIBILITY TO FOLLOW | | | MULTIPLE ORGANISM TYPES PRESENT, | | | SUGGESTIVE OF CONTAMINATION OR COLONIZATION. SUGGEST RECOLLECTION FOR | | | CULTURE. Testing | | | performed at [facility];[address] [place] [address];[place] [address] REPORT | | | STATUS 06/08/2012 FINAL [...]
--- OUTSIDE RECORDS SUMMARY | ~2020-05-23 | XMS | Encounter Summary ---
Demographics + + + | Address | [address] | | | [place] [address] | + + + | Home Phone [...] [place], [place] | | | | | [address] | | + + + + + Care Team Providers + +------+ + | Care Conciliation Court Judge Name | Role | Phone | + +------+ + PCP | Unavailable | + +------+ + Encounter Details +--------+ + + + + | Date | Type | Department | Care Team | Description | +--------+ + + + + | 05/29/ | Hospital | [facility] | | | | 1991 | Encounter | MED CTR LABORATORY | | | | | | [address] | | | | | | [place] | | | | | | [address] | | | | | | [phone] | | | +--------+ + + + [...] | | | | | [place] [address] | | | | | | [phone] | | | | | | | | +--------+ + + + + | 08/28/ | Office | Cardiology | Dora De La Torre | | | 2020 | Visit | | [address] | | | | | | [address] | | | | | | [place] [address] | | | | | | [phone] | | | | | | | | +--------+ + + + + documented as of this encounter Visit Diagnoses Not on filedocumented in this encounter"
--- OUTSIDE RECORDS SUMMARY | ~2020-05-23 | XMS | Encounter Summary ---
Demographics + + + | Address | [address] | | | [place] [address] | + + + | Home Phone [...] [place] | | | | | [address] | | + + + + + Care Team Providers + +------+ + | Care Oil Separator Name | Role | Phone | + [...] + + | 08/20/ | Documentati | [facility] | Katharine Moncada, | Other (urgent | | 2019 | on | CARDIOLOGY [place] | Technologist | report) | | | | [address] | | | | | | [place] | | | | | | [address] | | | | | | [phone] | | | +--------+ + + + [...] | | | | | [place] [address] | | | | | | [phone] | | | | | | | | +--------+ + + + + | 08/28/ | Office | Cardiology | Dora De La Torre | | | 2020 | Visit | | CAROLINE Mendez [address] | | | | | | [address] | | | | | | [place] [address] | | | | | | [phone] | | | | | | | | +--------+ + + + + documented as of this encounter Visit Diagnoses Not on filedocumented in this encounter"
--- OUTSIDE RECORDS SUMMARY | ~2020-05-23 | XMS | Encounter Summary ---
Demographics + + + | Address | [address] | | | [place] [address] | + + + | Home Phone [...] [place], [place] | | | | | [address] | | + + + + + Care Team Providers + +------+ + | Care Stand Up Forklift Operator Name | Role | Phone | [...] [phone] | | | | | | [place], [place] | | | | | | [address] | | | | | | [phone] | | | +--------+ + + + [...] | | | | | [place] [address] | | | | | | [phone] | | | | | | | | +--------+ + + + + | 08/28/ | Office | Cardiology | Dora De La Torre | | | 2020 | Visit | | CAROLINE Mendez [address] | | | | | | [address] | | | | | | [place] [address] | | | | | | [phone] | | | | | | | | +--------+ + + + + documented as of this encounter Visit Diagnoses Not on filedocumented in this encounter
--- OUTSIDE RECORDS SUMMARY | ~2020-05-23 | XMS | Encounter Summary ---
Demographics + + + | Address | [address] | | | [place] [address] | + + + | Home Phone [...] [place] | | | | | [address] | | + + + + + Care Team Providers + +------+ + | Care Circuit Designer Name | Role | Phone | [...] + + | 08/22/ | Documentati | [facility] | Katharine Moncada, | Other (urgent | | 2019 | on | CARDIOLOGY [place] | Technologist | report) | | | | [address] | | | | | | [place] | | | | | | [address] | | | | | | [phone] | | | +--------+ + + + [...] | | | | | [place] [address] | | | | | | [phone] | | | | | | | | +--------+ + + + + | 08/28/ | Office | Cardiology | Dora De La Torre | | | 2020 | Visit | | CAROLINE Mendez [address] | | | | | | [address] | | | | | | [place] [address] | | | | | | [phone] | | | | | | | | +--------+ + + + + documented as of this encounter Visit Diagnoses Not on filedocumented in this encounter"
--- OUTSIDE RECORDS SUMMARY | ~2020-05-23 | XMS | Encounter Summary ---
Demographics + + + | Address | [address] | | | [place] [address] | + + + | Home Phone [...] [place] | | | | | [address] | | + + + + + Care Team Providers + +------+ + | Care Medical Insurance Claims Specialist Name | Role | Phone | + +------+ + | Natalee Andersen NP | PCP | | + +------+ + Encounter Details +--------+ + + + + | Date | Type | Department | Care Team | Description | +--------+ + + + + | 06/25/ | Hospital | [facility] | Frandy Teresa, | Acquired | | 2014 | Encounter | MED CTR XRAY [address] | DO [address] | spondylolisthesis | | | | [place] | [address] [place], [place] | | | | | [place] [address] | [address] | | | | | [phone] | | | +--------+ + + + [...] + + + +---------+ + + | [place]-3 Fatty | Take 1,000 mg by | [...] [address] | | | | | | [place] [address] | | | | | | [phone] | | | | | | | | +--------+ + + + + | 08/28/ | Office | Cardiology | Dora De La Torre | | | 2019 | Visit | | CAROLINE Mendez [address] | | | | | | [address] | | | | | | [place] [address] | | | | | | [phone] | | | | | | | | +--------+ + + + + documented as of this encounter Visit Diagnoses + + | Diagnosis | + + | Acquired spondylolisthesis | + + documented in this encounter"
--- OUTSIDE RECORDS SUMMARY | ~2020-05-23 | XMS | Encounter Summary ---
Demographics + + + | Address | [address] | | | [place] [address] | + + + | Home Phone [...] [place] | | | | | [address] | | + + + + + Care Team Providers + +------+ + | Care Data Governance Consultant Name | Role | Phone | [...] + + | 07/06/ | Emergency | [facility] | Yunior Sherman, | Chest pain, | | 2014 | | MED CTR EMERGENCY | MD [address] | unspecified chest | | | | CENTER [address] | [place], [place] | pain type (Primary | | | | [place], [place] | [address] | Dx) | | | | [address] | | | | | | [phone] | | | +--------+ + + + [...] sent through Care Everywhere.CHEST PAIN, NON CARDIAC (MACEDONIAN)documented in this encounter Medications at Time of [...] 0 | | | | (VITAMIN D-3) [address] | mouth Once a week. | | [...] | | | | | | | (FORMERLY [facility]) | | | | | | + [...] + + + +---------+ + + | [place]-3 Fatty | Take 1,000 mg by | [...] Laterality: N/A; Surgeon: Frandy castellanos DO; Location: [facility] MAIN OR Cardiac catherization CURRENT MEDICATIONS Previous [...] mg by mouth Daily. CHOLECALCIFEROL (VITAMIN D-3) 64781 UNITS CAPS Take 50,000 Units by mouth [...] pain. She was recently discharged from a [facility] facility. She's had more than 24 [...] [address]U | | | | | | [place] [address] | | | | | | [phone] | | | | | | | | +--------+ + + + + | 08/28/ | Office | Cardiology | Dora De La Torre | | | 2019 | Visit | | CAROLINE Mendez [address] | | | | | | [address] | | | | | | [place] [address] | | | | | | [phone] | | | | | | | [...] [address] | [place] | [phone] | | [facility] | | [address] | | | - LABORATORY | | [...] + | [facility] | [address] | [place] | [phone] | | [facility] | | [address] | | | - LABORATORY | | [...] | | | | | | [employer] | | | | | [...] [address] | [place] | [phone] | | [facility] | | [address] | | | - LABORATORY | | [...] mL/min/1.73m2 | [facility] | | | [place] | RATE,ESTIMATED | | MEDICAL | | | | mL/min/1.59z8Ruuj than | | CENTER - | | [...] [address] | [place] | [phone] | | [facility] | | [address] | | | - LABORATORY | | [...] + | [facility] | [address] | [place] | [phone] | | [facility] | | [address] | | | - LABORATORY | | [...] | | | | MD MANSI, LACEY ([id number]) | | | | | | on [...]
--- OUTSIDE RECORDS SUMMARY | ~2020-05-23 | XMS | Encounter Summary ---
Demographics + + + | Address | [address] | | | [place] [address] | + + + | Home Phone [...] [place] | | | | | [address] | | + + + + + Care Team Providers + +------+ + | Care Bulb Grower Name | Role | Phone | + +------+ + | Basim Bolanos MD | PCP | | + +------+ + Encounter Details +--------+ + + + + | Date | Type | Department | Care Team | Description | +--------+ + + + + | 03/01/ | Abstract | [facility] [place] | [facility], | | | 2012 | | GASTROENTEROLOGY | FORTUNATO Thomas [address] | | | | | [address] | [address] | | | | | [address] [place], [place] | [place], [place] | | | | | [address] | [address] | | | | | [phone] | | | +--------+ + + + [...] | | | | | [place] [address] | | | | | | [phone] | | | | | | | | +--------+ + + + + | 08/28/ | Office | Cardiology | Dora De La Torre | | | 2019 | Visit | | [address]OLINE Mendez [address] | | | | | | [address] | | | | | | [place] [address] | | | | | | [phone] | | | | | | | | +--------+ + + + + documented as of this encounter Visit Diagnoses Not on filedocumented in this encounter"
--- OUTSIDE RECORDS SUMMARY | ~2020-05-23 | XMS | Encounter Summary ---
Demographics + + + | Address | [address] | | | [place] [address] | + + + | Home Phone [...] [place] | | | | | [address] | | + + + + + Care Team Providers + +------+ + | Care Community Sports Coordinator Name | Role | Phone | [...] + + | 05/08/ | Telephone | [facility] | Dora De La Torre | Testing | | 2020 | | CARDIOLOGY [place] | [address] Mendez [address] | | | | | [address] | [address] | | | | | [address] | [place] [address] | | | | | [place] | [phone] | | | | | [address] | | | | | | [phone] | | | +--------+ + + + [...] [address] | | | | | | [place] [address] | | | | | | [phone] | | | | | | | | +--------+ + + + + | 08/28/ | Office | Cardiology | Dora De La Torre | | | 2019 | Visit | | [address] Mendez [address] | | | | | | [address] | | | | | | [place] [address] | | | | | | [phone] | | | | | | | | +--------+ + + + + documented as of this encounter Visit Diagnoses Not on filedocumented in this encounter"
--- OUTSIDE RECORDS SUMMARY | ~2020-05-23 | XMS | Clinical Summary ---
Demographics + + + | Address | [address] | | | [place] [address] | + + + | Home Phone [...] [place] | | | | | [address] | | + + + + + Care Team Providers + +------+ + | Care Sales Systems Engineer Name | Role | Phone | + +------+ + PCP | Unavailable | + +------+ + Source Comments EDWARD is fully live on both [facility] Ambulatory and [facility] InPatient.[facility] Allergies Not on File Medications [...] | [facility] | xxxxxxxxxx | 02/22/20 | [phone] | [address] | [facility] | | | RE A & | | 15-Pre | 1 | [address] | re | | | B | | sent | | [place] | | | | | | | | [address] | | + +--------+ +--------+ + +--------+ + +--------+ +--------+ + + | Guarantor Name | Accoun | Relation to | Date | Phone | Billing Address | | | t Type | Patient | of | | | | | | | | | | + +--------+ +--------+ + + | CINDY ARNDT | Person | Self | [birth year] | [address] | | | al/Fam | | 1955 | [phone] | [address] [place] | | | [place]onte | | | 5 (Home) | [address] | + +--------+ +--------+ + +"
--- OUTSIDE RECORDS SUMMARY | ~2020-05-23 | XMS | Encounter Summary ---
Demographics + + + | Address | [address] | | | [place] [address] | + + + | Home Phone [...] [place] | | | | | [address] | | + + + + + Care Team Providers + +------+ + | Care Mass Spectroscopist Name | Role | Phone | + +------+ + | Adriano Patrick MD | PCP | | + +------+ + Encounter Details +--------+ + + + + | Date | Type | Department | Care Team | Description | +--------+ + + + + | 06/10/ | Abstract | [facility] | Thierry Fry | | | 2014 | | MEDICINE [facility] RICH | MD Lisa [address] | | | [address] [place], | [place], [place] | | | | | [place] [address] | [address] | | | | | [phone] | | | +--------+ + + + [...] | | | | | [place] [address] | | | | | | [phone] | | | | | | | | +--------+ + + + + | 08/28/ | Office | Cardiology | Dora De La Torre | | | 2019 | Visit | | [address] Mendez [address] | | | | | | [address] | | | | | | [place] [address] | | | | | | [phone] | | | | | | | [...]
--- OUTSIDE RECORDS SUMMARY | ~2020-05-23 | XMS | Encounter Summary ---
Demographics + + + | Address | [address] | | | [place] [address] | + + + | Home Phone [...] [place], [place] | | | | | [address] | | + + + + + Care Team Providers + +------+ + | Care Cost Accountant Name | Role | Phone | + +------+ + PCP | Unavailable | + +------+ + Encounter Details +--------+ + + + + | Date | Type | Department | Care Team | Description | +--------+ + + + + | 04/16/ | [facility] | [facility] | Deon Gonzales | | | 2004 | Encounter | MED CTR SLEEP | MD Laureano [address] | | | | | STORY [address] | [facility] | | | | | [place], [place] | [place] [address] | | | | | [address] | [phone] | | | | | [phone] | | | +--------+ + + + [...] [address] | | | | | | [place] [address] | | | | | | [phone] | | | | | | | | +--------+ + + + + | 08/28/ | Office | Cardiology | Dora De La Torre | | | 2019 | Visit | | CAROLINE Mendez [address] | | | | | | [address] | | | | | | [place] [address] | | | | | | [phone] | | | | | | | | +--------+ + + + + documented as of this encounter Visit Diagnoses Not on filedocumented in this encounter"
--- OUTSIDE RECORDS SUMMARY | ~2020-05-23 | XMS | Encounter Summary ---
Demographics + + + | Address | [address] | | | [place] [address] | + + + | Home Phone [...] [place] | | | | | [address] | | + + + + + [...] + + | 02/26/ | Emergency | [facility] | [place], | CVA (cerebral | | 2015 | | MED CTR EMERGENCY | Davey Simons MD [address] | vascular accident) | | | | CENTER [address] | [address] [facility] | ([facility]) (Primary Dx) | | | | [place], [place] | [place] [address] | | | | | [address] | [phone] | | | | | [phone] | | | +--------+ + + + [...] + + + +---------+ + + | [place]-3 Fatty | Take 1,000 mg by | [...] be differe nt from the original. [facility] Emergency Department Encounter Note [address] [place] [address] PCP:Natalee Andersen [phone] CHIEF COMPLAINT: Chief Complaint Patient presents with Facial Droop ED Room: ED07/ED07 HPI Cindy Arndt is a 59 y.o. female who presents to the Emergency Department accompanied by a friend from [place] for evaluation. The patient recently had symptoms that were diagno sed as stroke or TIA. The symptoms were of a weakness and numbness in her right arm and leg . She was hospitalized for 4 days in [place] for this. She was discharged and subsequent ly has had 2 or 3 emergency department visits in [place] for symptoms diagnosed as TIAs. These have been recurrent and worsening right arm and leg weakness and then today with some right facial drooping and drooling. She is on Aggrenox. She had a full workup in [place] including brain CT, brain MRI, and carotid [...] Laterality: N/A; Surgeon: Frandy castellanos DO; Location: [facility] MAIN OR CURRENT MEDICATIONS Discharge Medication List [...] or Severe Contraindications. Consult references such as Truevision for furthe r information. Magnesium 250 MG [...] or Severe Contraindications. Consult references such as Truevision for further information. Multiple Vitamins-Minerals (CENTRUM SILVER PO) Take 1 tablet by mouth Daily.Historical Med OLANZapine zydis (ZYPREXA ZYDIS) 15 MG disintegrating tablet Take 15 mg by mouth nightly. [place]-3 Fatty Acids (FISH OIL CONCENTRATE) 1000 MG [...] review all of her imaging studies from [facility] ED COURSE & MEDICAL DECISION MAKING Pertinent Labs & Imaging studies were reviewed along with EMS notes and [facility] record s if applicable. (See chart for details) Medications and Allergy list reviewed. Nurses note and old records were reviewed The patient was seen and examined, I was finally able to get her records from [facility] which showed a normal MRI and less [...] accident) (HCC) Follow-up Information Follow up with [facility]. Specialty: Emergency Medicine Contact information: [address] [facility] [address] Follow up with [facility]. Specialty: Emergency Medicine Contact information: [address] [facility] [address] Follow up with Natalee Andersen NP. Specialty: Family Nurse Practitioner Contact information: [address] [place] [address] Schedule an appointment as soon as possible for a visit with Baudilio Newman MD. Specialty: Neurology Contact information: [address] [facility] [address] Discharge Medication List as of 02/26/2015 15:21 Davey Varela MD 02/26/15 1732 do cumented in this encounter Miscellaneous Notes ED Triage Notes - Yesenia Monroy RN - 02/26/2015 1:11 PM PDTC/O right sided facial mahendra op and numbness to right arm and leg onset yesterday at approximately 1800. Pt was seen in [facility] by her primary care physician this morning [...] CANTU | | | | | | [place] [address] | | | | | | [phone] | | | | | | | | +--------+ + + + + | 08/28/ | Office | Cardiology | Dora De La Torre | | | 2019 | Visit | | CAROLINE Mendez [address] | | | | | | [address] | | | | | | [place] [address] | | | | | | [phone] | | | | | | | [...] mL/min/1.73m2 | [facility] | | | Palestinian | RATE,ESTIMATED | | MEDICAL | | | | mL/min/1.15o6Cnhy than | | CENTER - | | [...] [address] | [place] | [phone] | | [facility] | | [address] | | | - LABORATORY | | [...] [address] | [place] | [phone] | | [facility] | | [address] | | | - LABORATORY | | [...] | ---- | | | 02/26/2015 13:10 [facility] | | | Emergency -numbness/facial droop 02/26/2015 08:15 [facility] | | | [facility] 02/19/2015 | | | 10:15 [facility] | | | -Diabetes mellitus [...] as uncontrolled 02/17/2015 | | | 08:22 [facility] Emergency | | | -Long-term (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 [...] and uterus 02/14/2015 | | | 09:56 [facility] Emergency | | | -Disturbance of skin [...] 02/06/2015 10:46 | | | [facility] | | | -Generalized [...] residual deficits | | | 02/01/2015 21:38 [facility] | | | Emergency 01/22/2015 14:00 [facility] | | | Urgent Care -Myalgia and [...] intervertebral disc | | | 01/16/2015 12:15 [facility] | | | Urgent Care -Unspecified acquired [...] other | | | medications 01/07/2015 11:45 [facility] | | | Urgent Care -Unspecified acquired [...] acquired hypothyroidism 12/30/2014 | | | 17:54 [facility] Emergency | | | -Obstructive sleep apnea [...] essential hypertension | | | 12/30/2014 14:30 [facility] | | | Urgent Care -Cramp of [...] | | -Cramp of limb 11/29/2014 16:15 [facility] | | | Urgent Care -Esophageal reflux [...] ------ | | | --------- [address] | | | [facility] [address] [facility] St[address] | | | [facility] 7 0 Total | | | Note: Visits indicate total known visits. Medicaid [place] Dx are the | | | number of primary diagnoses on the [facility]'s non-emergent dx list. | | | | [...]
--- OUTSIDE RECORDS SUMMARY | ~2020-05-23 | XMS | Encounter Summary ---
Demographics + + + | Address | [address] | | | [place] [address] | + + + | Home Phone [...] [place] | | | | | [address] | | + + + + + Care Team Providers + +------+ + | Care Principal Examiner Name | Role | Phone | + +------+ + | Basim Bolanos MD | PCP | | + +------+ + Encounter Details +--------+ + + + + | Date | Type | Department | Care Team | Description | +--------+ + + + + | 03/30/ | Hospital | [facility] | Tyrese Neely MD | | | 2012 | Encounter | MED CTR MP INTRA OP | [address], [place] | | | | | [address] | [address] [place], [place] | | | | | [place], [place] | [address] | | | | | [address] | | | | | | [phone] | | | +--------+ + + + [...] + + + +---------+ + + | [place]-3 Fatty | Take 1,000 mg by | [...] documented as of this encounter Miscellaneous Notes Op Note - Tyerse Neely MD - 03/30/2013 12:10 [place] [address] Patient Name: CINDY ARNDT Provider: Tyrese Neely MD Unit #: [id number] Location: [facility] : 1955 Patient Name: Cindy Arndt Gender: F Procedure Date: 03/30/2013 12:10 PM Date of : 1955 Age: 57 Admit Type: Outpatient Room: Endo Room 1 Note Status: Finalized Attending MD: Tyrese Neely MD Procedure: Upper GI endoscopy Indications: Epigastric abdominal pain Providers: Tyrese Neely MD, Vanesa Anne RN, Yesenia Downing, Filler Mixer, Guillermo Ortiz MD (Anesthesia Staff) Referring MD: Basim Bolanos MD Medicines: Sedation Required Anesthesia Staff Assistance Complicati ons: No immediate complications. Estimated blood loss: Minimal. Procedure: - Prior to the procedure, a History and Physical was performed, and patient medications, allergies and sensitivities were reviewed. The patient's tolerance of previous anesthesia was reviewed. - The risks and benefits of the procedure and the sedation options and risks were discussed with the patient. All questions were answered and informed consent was obtained. - Patient identification and proposed procedure were verified prior to the procedure by the physician, the nurse, the anesthesiologist and the aviation survival technician. The procedure was verified in the endoscopy suite. - Airway Examination: small/crowded oropharyngeal airway and Mallampati Class IV (tongue obstructs view of the soft palate). - Mental Status Examination: alert and oriented. - ASA Grade Assessment: III - A patient with severe systemic disease. - After reviewing the risks and benefits, the patient was deemed in satisfactory condition to undergo the procedure. - Anesthesia under the supervision of an anesthesiologist using IV propofol was determined to be medically necessary for this procedure based on ASA Grade III-V and morbid obesity. - Immediately prior to administration of medications, the patient was re-assessed for adequacy to receive sedatives. - The heart rate, respiratory rate, oxygen saturations, blood pressure, adequacy of pulmonary ventilation, and response to care were monitored throughout the procedure. - The physical status of the patient was re-assessed after the procedure. After obtaining informed consent, the endoscope was passed under direct vision. Throughout the procedure, the patient's blood pressure, pulse, and oxygen saturations were monitored continuously. The endoscope was introduced through the mouth, and advanced to the third part of duodenum. The upper GI endoscopy was accomplished without difficulty. The patient tolerated the procedure well. Findings: The cricopharyngeus, upper third of the esophagus, middle third of the esophagus, lower third of the esophagus, lower esophageal sphincter and gastroesophageal junction were normal. The Z-line was regular and was found 40 cm from the incisors. Localized mild inflammation characterized by erythema and friability was found in the prepyloric region of the stomach. Biopsies were taken with a cold forceps for Helicobacter pylori testing using CLOtest. Verification of patient identification for the specimen was done. Estimated blood loss was minimal. The duodenal bulb, first part of the duodenum, 2nd part of the duodenum, area of the papilla and 3rd part of the duodenum were normal. The retroflexed view confirmed previous findings, Impression: - Normal at the cricopharyngeus, in the upper third of the esophagus, in the middle third of the esophagus, in the lower third of the esophagus, lower esophageal sphincter and at the gastroesophageal junction. - Z-line regular, 40 cm from the incisors. - Gastritis. This was biopsied. - Normal duodenal bulb, first part of the duodenum, 2nd part of the duodenum, area of the papilla and 3rd part of the duodenum. Recommendation: - Discharge patient to home (ambulatory). - Return to previous diet today. - Follow an antireflux regimen indefinitely. - Continue present medications. - Return to primary care physician as previously scheduled. - Telephone GI clinic for pathology results in 1 week. Tyrese Neely MD Signed Date: 03/30/2013 12:27 PM Number of Addenda: 0 Note initiated on 03/30/2013 12:09 PM Scope Withdrawal Time: N/A Total Procedure Duration Time: 06 minutes 26 seconds Tyrese Neely MD [id number] documented in this e ncounter Plan of Treatment [...] [address] | | | | | | [place] [address] | | | | | | [phone] | | | | | | | | +--------+ + + + + | 08/28/ | Office | Cardiology | Isacc De La Torre | | 2019 | Visit | | Vanessa, ROTOR BALANCER [address] | | | | | | [address] | | | | | | [place] [address] | | | | | | [phone] | | | | | | | [...] + | [facility] | [address] | [place], [place] | [phone] | | [facility] | | [address] | | | - LABORATORY | | | | + + + + + | [facility] | [address] | [place], [place] | | | [facility] | | [address] | | | - LABORATORY [...] + | [facility] | [address] | [place] | [phone] | | [facility] | | [address] | | | - LABORATORY | | | | + + + + + | [facility] | [address] | [place], [place] | | | [facility] | | [id number] [place] [address] | | | - LABORATORY | | | | + + + + + documented in this encounter Visit Diagnoses Not on filedocumented in this encounter"
--- OUTSIDE RECORDS SUMMARY | ~2020-05-23 | XMS | Encounter Summary ---
Demographics + + + | Address | [address] | | | [place] [address] | + + + | Home Phone [...] [place] | | | | | [address] | | + + + + + Care Team Providers + +------+ + | Care Ground Operations Crew Member Name | Role | Phone | [...] + + | 05/19/ | Telephone | [facility] | Britt Dora | Other (Cancel | | 2020 | | CARDIOLOGY [place] | [address] | appointment) | | | | [address] | [address] | | | | | [address] | [place] [address] | | | | | [place], [place] | [phone] | | | | | [address] | | | | | | [phone] | | | +--------+ + + + [...] - 05/19/2020 10:42 AM PDTCalled [facility] with Dora Mendez as it was for psychiatric reasons and not hea rt related. Droa Mendez will follow up with patient after [...] [address] | | | | | | [place] [address] | | | | | | [phone] | | | | | | | | +--------+ + + + + | 08/28/ | Office | Cardiology | StefanielarryDora | | 2019 | Visit | | [address] | | | | | | [address] | | | | | | [place] [address] | | | | | | [phone] | | | | | | | | +--------+ + + + + documented as of this encounter Visit Diagnoses Not on filedocumented in this encounter"
--- OUTSIDE RECORDS SUMMARY | ~2020-05-23 | XMS | Encounter Summary ---
Demographics + + + | Address | [address] | | | [place] [address] | + + + | Home Phone [...] [place] | | | | | [address] | | + + + + + Care Team Providers + +------+ + | Care Feed Project Engineer Name | Role | Phone [...] + + | 10/04/ | Office | [facility] | Desiree Peterson DO | ROGERS on CPAP (Primary | | 2019 | Visit | CARDIOLOGY [place] | [address] | Dx); Morbid obesity | | | | [address] | [place], [place] | (HCC); Benign | | | | [address] | [id number] | essential HTN; | | | | [place], [place] | | Atrial fibrillation, | | | | [address] | | unspecified type | | | | [phone] | | ([facility]) | +--------+---------+ + + + [...] Desiree Peterson, - 10/04/2019 11:40 AM PST [facility] Cardiology Cardiology Follow Up Note [...] rtake in exercise. She recently got a [employer] and has been walking him more regularly. [...] by mouth daily. Blood Glucose Monitoring Suppl (Genetic FinanceIO FLEX SYSTEM) w/Device KIT by Does not ap ply route. budesonide-formoterol (SYMBICORT) 160-4.5 MCG/ACT inhaler Inhale 2 puffs into the lungs 2 (two) times daily. Calcium Carbonate Antacid 1000 MG tablet Take 1,000 mg by mouth 3 (three) times daily. Cholecalciferol (VITAMIN D3) 98604 units CAPS Take by mouth once a [...] | | | | | | [place] [address] | | | | | | [phone] | | | | | | | | +--------+ + + + + | 08/28/ | Office | Cardiology | Dora De La Torre | | | 2019 | Visit | | [address] | | | | | | [address] | | | | | | [place] [address] | | | | | | [phone] | | | | | | | [...]
--- OUTSIDE RECORDS SUMMARY | ~2020-05-23 | XMS | Encounter Summary ---
Demographics + + + | Address | [address] | | | [place] [address] | + + + | Home Phone | | + + + | Preferred Language | Unknown | + + + | Marital Status | Single | + + + | Episcopal Affiliation | Unknown | + + + [...] [place] | | | | | [address] | | + + + + + Care Team Providers + +------+ + | Care Geospatial Information Technologist Name | Role | Phone | [...] | Transcriptions | + + | Interface, Ophthalmic Photographer In - 10/24/2006 3:09 AM PST | | [facility] | | Road [place], [place] [address] [place] | | [facility] CenterOPERATION RECORDMed Rec No.: [id number] Date: [...]
--- OUTSIDE RECORDS SUMMARY | ~2020-05-23 | XMS | Encounter Summary ---
Demographics + + + | Address | [address] | | | [place] [address] | + + + | Home Phone [...] [place], [place] | | | | | [address] | | + + + + + Care Team Providers + +------+ + | Care Hoisting Pile Driving Engineer Name | Role | Phone | + +------+ + PCP | Unavailable | + +------+ + Encounter Details +--------+ + + + + | Date | Type | Department | Care Team | Description | +--------+ + + + + | 06/30/ | Hospital | [facility] | | | | 1999 - | Encounter | MED CTR GENERIC PSY | | | | | | CONV DEPT [address] | | | | 07/05/ | | [place], | | | | 1999 | | [place] [address] | | | | | | [phone] | | | +--------+ + + + [...] [address] | | | | | | [place] [address] | | | | | | [phone] | | | | | | | | +--------+ + + + + | 08/28/ | Office | Cardiology | Dora De La Torre | | | 2019 | Visit | | [address] | | | | | | [address] | | | | | | [place] [address] | | | | | | [phone] | | | | | | | | +--------+ + + + + documented as of this encounter Visit Diagnoses Not on filedocumented in this encounter"
--- OUTSIDE RECORDS SUMMARY | ~2020-05-23 | XMS | Encounter Summary ---
Demographics + + + | Address | [address] | | | [place] [address] | + + + | Home Phone [...] [place] | | | | | [address] | | + + + + + Care Team Providers + +------+ + | Care Java Architect Name | Role | Phone | [...] + + | 08/20/ | Documentati | [facility] | Katharine Moncada, | Other (urgent | | 2019 | on | CARDIOLOGY [place] | Technologist | report) | | | | [address] | | | | | | [place] | | | | | | [address] | | | | | | [phone] | | | +--------+ + + + [...] | | | | | [place] [address] | | | | | | [phone] | | | | | | | | +--------+ + + + + | 08/28/ | Office | Cardiology | Dora De La Torre | | | 2020 | Visit | | [address] | | | | | | [address] | | | | | | [place] [address] | | | | | | [phone] | | | | | | | | +--------+ + + + + documented as of this encounter Visit Diagnoses Not on filedocumented in this encounter"
--- OUTSIDE RECORDS SUMMARY | ~2020-05-23 | XMS | Encounter Summary ---
Demographics + + + | Address | [address] | | | [place] [address] | + + + | Home Phone [...] [place], [place] | | | | | [address] | | + + + + + Care Team Providers + +------+ + | Care Detasseling Crew Supervisor Name | Role | Phone | + +------+ + PCP | Unavailable | + +------+ + Encounter Details +--------+ + + + + | Date | Type | Department | Care Team | Description | +--------+ + + + + | 04/16/ | Hospital | [facility] | | | | 1997 | Encounter | MED CTR XRAY [address] | | | | | | [address] [place] | | | | | | [place] [address] | | | | | | [phone] | | | +--------+ + + + [...] | | | | | [place] [address] | | | | | | [phone] | | | | | | | | +--------+ + + + + | 08/28/ | Office | Cardiology | Dora De La Torre | | | 2019 | Visit | | [address] | | | | | | [address] | | | | | | [place] [address] | | | | | | [phone] | | | | | | | | +--------+ + + + + documented as of this encounter Visit Diagnoses Not on filedocumented in this encounter"
--- OUTSIDE RECORDS SUMMARY | ~2020-05-23 | XMS | Encounter Summary ---
Demographics + + + | Address | [address] | | | [place] [address] | + + + | Home Phone [...] [place] | | | | | [address] | | + + + + + Care Team Providers + +------+ + | Care Picking Machine Operator Name | Role | Phone [...] + + | 08/09/ | Clinical | [facility] | Desiree Peterson DO | Syncope, unspecified | | 2019 | Support | CARDIOLOGY [place] | [address] | syncope type | | | | [address] | [place], [place] | | | | | [place] [address] | [address] | | | | | [place] | | | | | | [address] | Dora De La Torre | | | | | [phone] | [address] Mendez [address] | | | | | | [address] | | | | | | [place] [address] | | | | | | [phone] | | | | | | | [...] [address] | | | | | | [place] [address] | | | | | | [phone] | | | | | | | | +--------+ + + + + | 08/28/ | Office | Cardiology | Dora De La Torre | | | 2019 | Visit | | [address] | | | | | | [address] | | | | | | [place] [address] | | | | | | [phone] | | | | | | | | +--------+ + + + + documented as of this encounter Visit Diagnoses + + | Diagnosis | + + | Syncope, unspecified syncope type | + + documented in this encounter"
--- OUTSIDE RECORDS SUMMARY | ~2020-05-23 | XMS | Encounter Summary ---
Demographics + + + | Address | [address] | | | [place] [address] | + + + | Home Phone [...] [place] | | | | | [address] | | + + + + + Care Team Providers + +------+ + | Care Tanbark Peeler Name | Role | Phone | + [...] | | | spondylolist | | [address] | | | | | [place] | | [place], | | | | | Spinal | | [place] [address] | | | | | stenosis, | | Phone: | | | | | lumbar | | [phone] | | | | | region, | | Fax: | | | | | without | | [phone] | | | | | neurogenic | [...] + + | 07/02/ | Surgery | [facility] | Frandy Teresa, | MIS L5-S1 | | 2013 | | MED CTR OR INTRA OP | DO [address] | TRANSFORAMINAL | | | | [address] | [address] [address] [place], [place] | LUMBAR INTERBODY | | | | [place] | [id number] | FUSION | | | | [address] | | | | | | [phone] | | | +--------+---------+ + + + [...] might be different fro m the original. [facility] DISCHARGE SUMMARY PATIENT NAME: Cindy [...] Stable for discharge to SNF. DISPOSITION: SNF ([facility]) DISCHARGE MEDICATIONS Medications prior [...] Take 15 mg by mouth nightl y. Foley-3 Fatty Acids (FISH OIL CONCENTRATE) 1000 MG [...] + + + +---------+ + + | Foley-3 Fatty | Take 1,000 mg by | [...] Lynn PA-C - 07/04/2014 7:43 AM PDT [facility] PROGRESS NOTE Pt. Name/Age/: Cindy Arndt 58 y.o. 1955 Med. Record Number: [id number] Date of admission: 07/02/2014 Subjective: The patient [...] home medications. D/C plan: Home tomorrow with [facility]. D/c mari drain and riley cath today. D/c spear fisher. Patient Active Problem List Diagnosis LUMBAR DISC [...] signed by: Chris Nicole, 07/04/2014 7:45 [facility] Chris Lynn PA-C - 07/03/2014 7:13 AM PDT . [facility] and Services PROGRESS NOTE Pt. Name/Age/: Cindy Arndt 58 y.o. 1955 Med. Record Number: [id number] Date of admission: 07/02/2014 Subjective: The patient [...] Electronically signed by: Chris Nicole, 07/03/2014 7:13 [facility] on Smith, KRIS - 07/03/2014 [...] signed by: Frandy Teresa DO, 07/02/2014 11:15 [facility] by Frandy Teresa DO at 06/2014 11:15 AM PDTDreyFrandy tim DO - 07/02/2014 11:15 AM [id number] [address] [place] [address] FAX: NEUROSURGERY HISTORY AND PHYSICAL EXAMINATION CHIEF [...] Take 15 mg by mouth nigh tlgaston. Foley-3 Fatty Acids (FISH OIL CONCENTRATE) 1000 MG [...] Intrinsics 5 5 Ulnar Intrinsics 5 5 Cdl Instructor Strength 5 5 Hip Flexion 5 4* [...] documented in this en counter Procedure Notes [facility] - 07/12/2014 12:00 AM PDT 14 1:45 [facility] - 07/04/2014 12:00 AM PDT [facility] - 07/02/2014 12:00 AM PDT documented in this encounter Miscellaneous Notes Plan of Care - [facility] - 07/12/2014 12:00 AM PDT iscellaneous - [facility] 07/12/2014 12:00 AM PDTElec tronically signed by Mariah Schulte at 07/12/2014 1:45 PM PDTMiscellaneous - [facility] - 07/12/2014 12:00 AM PDT i scellaneous - [facility] - 07/12/2014 12:00 AM PDT [...] and I will be going to a longterm as I have 16 steps to my [...] TBD) Equipment Recommendations: tub bench;hand held shower head;multi line claims adjuster;comfort height toilet ( pt. has all necessary [...] might be different fro m the original. ASSISTED FACILITY TRANSFER ORDERS Patient Name: Cindy Arndt Patient : 1955 Gender: female Date of Admission: 07/02/2014 Date of Discharge: 07/05/2014 Admitting Provider: Frandy Teresa DO Discharging Provider: Chris Nicole PA-C Consultants: none PCP: Natalee Andersen [facility] transferring to: [facility] Provider after transfer: PCP and Dr. Frandy Teresa CODE STATUS: [x] Attempt CPR [] Do not resuscitate If patient is pulseless and not breathing, RN/PHARMACY SALES REPRESENTATIVE may pronounce . Advanced Directives included: [] [...] for this patient. Diet: [] As tolerated STORE GROCERY MERCHANDISER may upgrade or downgrade diet as condition Indicates. [x] RN may downgrade diet as indicated. Type: [] Continue current diet of: Diet and Supplements Diet DIET CONSISTENT CARBOHYDRATE Number of Occurrences: -1 Days [] Other: Consistency/Precautions: [] Whole [] Thin Liquids [] Cut-up [] [place] Thick [] Advanced Chopped [] Honey Thickened [] Chopped [] Advanced Ground [] 1:1 feedings [] Ground/Pureed [] Other: Tube Feedings: [] PEG [] GT [] JT [] NGT [] Formula type: (Sports Fitness And Wellness Director may change/substitute if indicated). [] Continuous Rate: [...] & Management for: ____same as above [] STORE GROCERY MERCHANDISER Evaluation &Management for: [] Other: Wound/Skin Care: [...] 1-2 tablets Take 1-2 tablets by [facility] every 4 hours as needed for Pain. [...] Take 15 mg by mouth ni ghtly. Foley-3 Fatty Acids (FISH OIL CONCENTRATE) 1000 MG [...] Orders/Instructions: Physician's signature:__Chris Nicole PA-C 07/05/2014 13:18 [facility] NURSING FACILITY USE ONLY: [] [...] tolerate progressive walking and doing stairs du [facility] hospital stay due to multiple pain c/o. Attempted to see pt. 1145, however had just rec eived pain medication and requested PT return, SPL 9/10. At 1205 pt contacted PT for assist OOB due to left LE spasms and need for position change. Sitting at EOB on arrival, PACKAGE YARNS DRYING MACHINE OPERATOR pres ent. Pt. donned LSO brace, stood [...] of endurance. When patient is walking in [facility] with a regular FWW she has to stop frequently and states she feels very weak, like sh e may fall. Patient lives alone. Outpatient prescriptions are filled at [facility] in [facility]. Electronically signed by: Franca Narvaez RN 07/05/2014 10:43 lan of Adilene Layne Rivers - 07/05/2014 10:39 AM PDTFaxed referral to Gabriela Stout and Lidia Tran. [place] : [id number] and [place]: [id number] Electronically signed by: Layne Collado 07/05/2014 10:40 [...] Collado 07/05/2014 12:56 lan of [facility] Snadhya Benites RN - 07/05/2014 5:14 AM PDTProblem: [...] TBD) Equipment Recommendations: tub bench;hand held shower head;multi line claims adjuster;comfort height toilet ( pt. has all necessary equipment) Planned Interventions: ADL retraining;transfer training Patient Status/Goals Reflects last filed data of patient status; may be from multiple contributors. Grooming: Status: did not occur today Assist: Utilizes: STG: Status: New Goal:modified independent LTG: Status: Goal: UE Dressing: Status: SBA Assist: Utilizes: STG: Status: Goal: LTG: Status: Goal: LE Dressing: Status: SBA Utilizes: multi line claims adjuster STG: Status: New Goal: modified independent LTG: [...] bed mobil ity. Pt has been using LADLE WATCHER and pain pills during the night. Zofran [...] by herself in a small apartment in [place]. Patient states she has her apartment set [...] to come from [facility] [place]. She states the Said she might benefit fr Home Health upon discharge. She would like me to contact [facility] to giv e them a heads up. I called and spoke to Summer at [facility] , told her patients PCP [...] Pt. resting in bed on arrival, used LADLE WATCHER x 2 during session. SPL 5/10. Pt. hoping to urinate helper shear operator to straight cath. Sidelying to sit [...] TBD) Equipment Recommendations: tub bench;hand held shower head;multi line claims adjuster;comfort height toilet ( pt. has all necessary [...] & Review . Outcome: Progressing Pt using LADLE WATCHER and PO pain pills, c/o numbness on [...] and on a continuous oximeter for her LADLE WATCHER. She was unable to do her IS because o f the medications. She has the IS at bedside with a goal of 2400. She did not require additi onal respiratory care throughout the evening. p Note - Frandy Teresa, DO - 07/02/2014 2:25 PM PDTDATE: 07/02/2014 SURGEON: Frandy Teresa MD. GRAIN TRIMMER: ZANE Oh PREOPERATIVE DIAGNOSES 1. Spondylolisthesis, L5-S1. [...] x 26 mm Capstone PEEK cage from [employer] was chosen. It was filled with Infus [...] Note Cindy Arndt 58 y.o. female 1955 [id number] Proc. Date 07/02/2014 Preop Dx Spondylolisthesis L5-S1 Postop Dx same Procedure Procedure(s):MIS L5-S1 TRANSFORAMINAL LUMBAR INTERBODY FUSION Anesthesia General Surgeon Frandy Teresa DO Butadiene Converter Helper ZANE Oh EBL 100 mL Findings Findings consistent with scheduled procedure. No other abnormalities found. Complications none Specimens * No specimens in log * Drains Electronically signed by: Frandy Teresa DO 07/02/2014 14:22 [facility] documented in this en counter [...] [address] | | | | | | [place] [address] | | | | | | [phone] | | | | | | | | +--------+ + + + + | 08/28/ | Office | Cardiology | Dora De La Torre | | | 2019 | Visit | | [address] | | | | | | [address] | | | | | | [place] [address] | | | | | | [phone] | | | | | | | [...] + | [facility] | [address] | [place], [place] | [phone] | | [facility] | | [address] | | | - LABORATORY | | | | + + + + + | [facility] | [address] | [place] | | | [facility] | | [address] [place] [address] | | | - LABORATORY | | [...] + | [facility] | [address] | [place] | [phone] | | [facility] | | [address] | | | - LABORATORY | | | | + + + + + | [facility] | [address] | [place] | | | [facility] | | [address], [facility] | | | - LABORATORY | [...] | | POC | | | [facility] | | | | | [...] + | [facility] | [address] | [place] | [phone] | | [facility] | | [address] | | | - LABORATORY | | | | + + + + + | [facility] | [address] | [place], [place] | | | [facility] | | [address] | | | [...] + | [facility] | [address] | [place], [place] | [phone] | | [facility] | | [address] | | | - LABORATORY | | | | + + + + + | [facility] | [address] | [place], [place] | | | [facility] | | [address], [facility] | | | - LABORATORY | [...] [address] | [place] | [phone] | | [facility] | | [address] | | | - LABORATORY | | | | + + + + + | [facility] | [address] | [place] | | | [facility] | | [address], [facility] | | | - LABORATORY | [...] + | [facility] | [address] | [place] | [phone] | | [facility] | | [address] | | | - LABORATORY | | | | + + + + + | [facility] | [address] | [place], [place] | | | [facility] | | [address], [facility] | | | - LABORATORY | [...] [address] | [place] | [phone] | | [facility] | | [address] | | | - LABORATORY | | | | + + + + + | [facility] | [address] | [place] | | | [facility] | | [address] | | | [...] + | [facility] | [address] | [place] | [phone] | | [facility] | | [address] | | | - LABORATORY | | | | + + + + + | [facility] | [address] | [place] | | | [facility] | | [address], [facility] | | | - LABORATORY | [...] + | [facility] | [address] | [place] | [phone] | | [facility] | | [address] | | | - LABORATORY | | | | + + + + + | [facility] | [address] | [place], [place] | | | [facility] | | [address] | | | - [facility]ATORY | | [...] | of hardware for posterior fusion from Z1rllqwrd S1 with interbody hardware at L5-S1. The [...] + | MISCELLANEOUS LAB | | | [phone] | + +---------+ + + | MISCELANIOUS LAB | | | [phone] | + +---------+ + + POC Glucose [...] + | [facility] | [address] | [place], [place] | [phone] | | [facility] | | [address] | | | - LABORATORY | | | | + + + + + | [facility] | [address] | [place] | | | [facility] | | [address] [place] [address] | | | - LABORATORY | | [...] + | [facility] | [address] | [place] | [phone] | | [facility] | | [address] | | | - LABORATORY | | | | + + + + + | [facility] | [address] | [place] | | | [facility] | | [address], [facility] | | | - LABORATORY | [...] + | [facility] | [address] | [place] | [phone] | | [facility] | | [address] | | | - LABORATORY | | | | + + + + + | [facility] | [address] | [place] | | | [facility] | | [address], [facility] | | | - LABORATORY | [...] + | [facility] | [address] | [place], [place] | [phone] | | [facility] | | [address] | | | - LABORATORY | | | | + + + + + | [facility] | [address] | [place], [place] | | | [facility] | | [address] | | | [address] | [place] | [phone] | | [facility] | | [address] | | | - LABORATORY | | | | + + + + + | [facility] | [address] | [place] | | | [facility] | | [address], [facility] | | | - LABORATORY | [...] | [place] | | | [facility] | | [address] | | | - BLOOD BANK | [...] mLs | | Surgical | | 1:200,000 0.25-1:653169 % | | 14 12:42 | | [...]
--- OUTSIDE RECORDS SUMMARY | ~2020-05-23 | XMS | Encounter Summary ---
Demographics + + + | Address | [address] | | | [place] [address] | + + + | Home Phone [...] [place] | | | | | [address] | | + + + + + Care Team Providers + +------+ + | Care Scrap Charger Name | Role | Phone | [...] | 08/14/ | Documentati | [facility] | Katharine Moncada, | Other (urgent | | 2019 | on | CARDIOLOGY [place] | Technologist | report) | | | | [address] | | | | | | [place] | | | | | | [address] | | | | | | [phone] | | | +--------+ + + + [...] | | | | | [place] [address] | | | | | | [phone] | | | | | | | | +--------+ + + + + | 08/28/ | Office | Cardiology | Dora De La Torre | | | 2020 | Visit | | [address] | | | | | | [address] | | | | | | [place] [address] | | | | | | [phone] | | | | | | | | +--------+ + + + + documented as of this encounter Visit Diagnoses Not on filedocumented in this encounter"
--- OUTSIDE RECORDS SUMMARY | ~2020-05-23 | XMS | Encounter Summary ---
Demographics + + + | Address | [address] | | | [place] [address] | + + + | Home Phone [...] + + + + + | [address] | [address] | [address] | | | | | [place] | | | | | [address] | | + + + + + Care Team Providers + +------+ + | Care Butcherette Name | Role | Phone | + [...] [address] | | | | | | [place], [place] | | | | | | [address] | | | +--------+ + + + [...]
--- OUTSIDE RECORDS SUMMARY | ~2020-05-23 | XMS | Encounter Summary ---
Demographics + + + | Address | [address] | | | [place] [address] | + + + | Home Phone [...] [place] | | | | | [address] | | + + + + + Care Team Providers + +------+ + | Care Ore Storage Drier Name | Role | Phone | + +------+ + | Thierry Fry MD | PCP | | + +------+ + Encounter Details +--------+ + + + + | Date | Type | Department | Care Team | Description | +--------+ + + + + | 03/06/ | Hospital | [facility] | Katharine Cardona PA-C | Essential | | 2015 | Encounter | MED CTR LABORATORY | [address] | hypertension | | | | [address] [place] | [place] [address] | | | | | [place], [place] | [phone] | | | | | [address] | | | | | | [phone] | | | +--------+ + + + [...] 0 | | | | (VITAMIN D-3) [address] | mouth Once a week. | | [...] + + + +---------+ + + | [place]-3 Fatty | Take 1,000 mg by | 60 each | 5 | 03/09/20 | | | Acids (FISH OIL | mouth 2 times daily. | | | 15 | 9 | | CONCENTRATE) 1000 MG | | | | | | | CAPS | | | | | | + + + +---------+ + + | [place]-3 Fatty | Take 1,000 mg by | [...] F | | | | | | [place] [address] | | | | | | [phone] | | | | | | | | +--------+ + + + + | 08/28/ | Office | Cardiology | Isacc De La Torre | | | 2020 | Visit | | [address] | | | | | | [address] | | | | | | [place] [address] | | | | | | [phone] | | | | | | | [...] 12 | 7 - 18 mg/dL | [facility] | | | | | | [facility] | | | | | | [facility] | | | | | | [facility] - | | | | | | LABORATORY | | + + + + + + | Creatinine | 0.66 | 0.60 - 1.30 | [facility] | | | | | mg/dL | [facility] | | | | | | [facility] | | | | | | CENTER - | | | | | | LABORATORY | | + + + + + + | eGFR, | >60Comment: GLOMERULAR | >=60 | [facility] | | | non- | FILTRATION | mL/min/1.73m2 | [facility] | | | Mauritanian | RATE,ESTIMATED | | MEDICAL | | | | mL/min/1.41a3Cbxf than | | CENTER - | | [...] + | [address] | [address] | [place], [place] | [phone] | | [facility] | | [address] | | | - LABORATORY | | | | + + + + + documented in this encounter Visit Diagnoses + + | Diagnosis | + + | Essential hypertension Unspecified essential hypertension | + + documented in this encounter"
--- OUTSIDE RECORDS SUMMARY | ~2020-05-23 | XMS | Encounter Summary ---
Demographics + + + | Address | [address] | | | [place] [address] | + + + | Home Phone [...] [place] | | | | | [address] | | + + + + + Care Team Providers + +------+ + | Care [place] Boatman Name | Role | Phone | + [...] + + | 08/20/ | Documentati | [facility] | Katharine Moncada, | Other (urgent | | 2019 | on | CARDIOLOGY [place] | Technologist | report) | | | | [address] | | | | | | [place] | | | | | | [address] | | | | | | [phone] | | | +--------+ + + + [...] | | | | | [place] [address] | | | | | | [phone] | | | | | | | | +--------+ + + + + | 08/28/ | Office | Cardiology | Dora De La Torre | | | 2020 | Visit | | [address] | | | | | | [address] | | | | | | [place] [address] | | | | | | [phone] | | | | | | | | +--------+ + + + + documented as of this encounter Visit Diagnoses Not on filedocumented in this encounter"
--- OUTSIDE RECORDS SUMMARY | ~2020-05-23 | XMS | Encounter Summary ---
Demographics + + + | Address | [address] | | | [place] [address] | + + + | Home Phone [...] [place] | | | | | [address] | | + + + + + Care Team Providers + +------+ + | Care Roller Repairer Name | Role | Phone | [...] [address] | | | | | | [place], [place] | | | | | | [address] | | | +--------+ + + + [...]
--- OUTSIDE RECORDS SUMMARY | ~2020-05-23 | XMS | Encounter Summary ---
Demographics + + + | Address | [address] | | | [place] [address] | + + + | Home Phone [...] [place] | | | | | [address] | | + + + + + Care Team Providers + +------+ + | Care Medical Office Representative Name | Role | Phone | [...] + | 06/26/ | Telephone | [facility] | Frandy Teresa, | Other | | 2013 | | NEUROSURGERY [address] | DO [address] | | | | | [address] | [address] [place], [place] | | | | | [place], [place] | [id number] | | | | | [address] | | | | | | [phone] | | | +--------+ + + + [...] [address] | | | | | | [place] [address] | | | | | | [phone] | | | | | | | | +--------+ + + + + | 08/28/ | Office | Cardiology | Dora De La Torre | | | 2019 | Visit | | [address] | | | | | | [address] | | | | | | [place] [address] | | | | | | [phone] | | | | | | | | +--------+ + + + + documented as of this encounter Visit Diagnoses Not on filedocumented in this encounter"
--- OUTSIDE RECORDS SUMMARY | ~2020-05-23 | XMS | Encounter Summary ---
Demographics + + + | Address | [address] | | | [place] [address] | + + + | Home Phone [...] [place] | | | | | [address] | | + + + + + Care Team Providers + +------+ + | Care Educational Speech Language Clinician Name | Role | Phone | [...] | | | | | [address] [facility] [address] | [place] [address] | | | | | [place] | [phone] | | | | | [address] | | | | | | [phone] | | | +--------+ + + + [...] Percocet prescription and faxed it to them ([facility]) this morning like I told them I would. Thank you for doing that, but it should not have been necessary. Telephone Encounter - Lincoln Cheema MD - 07/06/2014 8:59 PM PDTCalled regarding increased p ain. She was taking percocet. She was discharged to a [facility] on hydrocodone. I talked to the [...] [address] | | | | | | [place] [address] | | | | | | [phone] | | | | | | | | +--------+ + + + + | 08/28/ | Office | Cardiology | Dora De La Torre | | | 2019 | Visit | | [address] | | | | | | [address] | | | | | | [place] [address] | | | | | | [phone] | | | | | | | | +--------+ + + + + documented as of this encounter Visit Diagnoses Not on filedocumented in this encounter"
--- OUTSIDE RECORDS SUMMARY | ~2020-05-23 | XMS | Encounter Summary ---
Demographics + + + | Address | [address] | | | [place] [address] | + + + | Home Phone [...] [place] | | | | | [address] | | + + + + + Care Team Providers + +------+ + | Care Data Processing Systems Project Planner Name | Role | Phone | [...] + + | 08/16/ | Telephone | [facility] | Ashley Chávez | Other (Called to | | 2018 | | CARDIOLOGY [place] | Pollo, Peg Driver | tell patient what | | | | [address] | | Nicholas said. ) | | | | [place] [address] | | | | | | [place] | | | | | | [address] | | | | | | [phone] | | | +--------+ + + + [...] Miscellaneous Notes Telephone Encounter - Ashley Chávez, Peg Driver - 08/16/2019 2:57 PM PDTCall m cierra to patient to advise of Dr. Peterson's notes. Patient stated understanding. JKASSIE:CUPOLA TAPPER-AAMA el ephone Encounter - Ashley Chávez Peg Driver - 08/16/2019 2:56 PM PDT----- Mess age [...] Thanks. ----- Message ----- From: Lesa Ochoa, Peg Driver Sent: 08/13/2019 13:31 To: Desiree Peterson DO [...] [address] | | | | | | [place] [address] | | | | | | [phone] | | | | | | | | +--------+ + + + + | 08/28/ | Office | Cardiology | Dora De La Torre | | | 2019 | Visit | | [address] | | | | | | [address] | | | | | | [place] [address] | | | | | | [phone] | | | | | | | | +--------+ + + + + documented as of this encounter Visit Diagnoses Not on filedocumented in this encounter"
--- OUTSIDE RECORDS SUMMARY | ~2020-05-23 | XMS | Encounter Summary ---
Demographics + + + | Address | [address] | | | [place] [address] | + + + | Home Phone [...] [place] | | | | | [address] | | + + + + + Care Team Providers + +------+ + | Care Retail Customer Service Representative Name | Role | [...] + + | 08/16/ | Documentati | [facility] | Katharine Moncada, | Other (urgent | | 2019 | on | CARDIOLOGY [place] | Technologist | report) | | | | [address] | | | | | | [place] | | | | | | [address] | | | | | | [phone] | | | +--------+ + + + [...] | | | | | [place] [address] | | | | | | [phone] | | | | | | | | +--------+ + + + + | 08/28/ | Office | Cardiology | Dora De La Torre | | | 2020 | Visit | | [address] | | | | | | [address] | | | | | | [place] [address] | | | | | | [phone] | | | | | | | | +--------+ + + + + documented as of this encounter Visit Diagnoses Not on filedocumented in this encounter"
--- OUTSIDE RECORDS SUMMARY | ~2020-05-23 | XMS | Encounter Summary ---
Demographics + + + | Address | [address] | | | [place] [address] | + + + | Home Phone [...] [place], [place] | | | | | [address] | | + + + + + Care Team Providers + +------+ + | Care Wall Insulation Sprayer Name | Role | Phone | + +------+ + PCP | Unavailable | + +------+ + Encounter Details +--------+ + + + + | Date | Type | Department | Care Team | Description | +--------+ + + + + | 01/16/ | Hospital | [facility] | | | | 2002 | Encounter | MED CTR XRAY [address] | | | | | | [place] | | | | | | [place] [address] | | | | | | [phone] | | | +--------+ + + + [...] | | | | | [place] [address] | | | | | | [phone] | | | | | | | | +--------+ + + + + | 08/28/ | Office | Cardiology | Dora De La Torre | | | 2019 | Visit | | [address] | | | | | | [address] | | | | | | [place] [address] | | | | | | [phone] | | | | | | | | +--------+ + + + + documented as of this encounter Visit Diagnoses Not on filedocumented in this encounter"
--- OUTSIDE RECORDS SUMMARY | ~2020-05-23 | XMS | Encounter Summary ---
Demographics + + + | Address | [address] | | | [place] [address] | + + + | Home Phone [...] [place], [place] | | | | | [address] | | + + + + + Care Team Providers + +------+ + | Care Narrow Fabrics Weaver Name | Role | Phone | + +------+ + PCP | Unavailable | + +------+ + Encounter Details +--------+ + + + + | Date | Type | Department | Care Team | Description | +--------+ + + + + | 07/17/ | Hospital | [facility] | | | | 1997 | Encounter | MED CTR EMERGENCY | | | | | | [address] | | | | | | [place] | | | | | | [address] | | | | | | [phone] | | | +--------+ + + + [...] | | | | | [place] [address] | | | | | | [phone] | | | | | | | | +--------+ + + + + | 08/28/ | Office | Cardiology | Dora De La Torre | | | 2020 | Visit | | [address] | | | | | | [address] | | | | | | [place] [address] | | | | | | [phone] | | | | | | | | +--------+ + + + + documented as of this encounter Visit Diagnoses Not on filedocumented in this encounter"
--- OUTSIDE RECORDS SUMMARY | ~2020-05-23 | XMS | Encounter Summary ---
Demographics + + + | Address | [address] | | | [place] [address] | + + + | Home Phone [...] [place], [place] | | | | | [address] | | + + + + + Care Team Providers + +------+ + | Care Recovery Specialist Name | Role | Phone | + +------+ + PCP | Unavailable | + +------+ + Encounter Details +--------+ + + + + | Date | Type | Department | Care Team | Description | +--------+ + + + + | 12/24/ | Hospital | [facility] | | | | 1998 | Encounter | MED CTR XRAY [address] | | | | | | [place] | | | | | | [place] [address] | | | | | | [phone] | | | +--------+ + + + [...] | | | | | [place] [address] | | | | | | [phone] | | | | | | | | +--------+ + + + + | 08/28/ | Office | Cardiology | Dora De La Torre | | | 2019 | Visit | | [address] | | | | | | [address] | | | | | | [place] [address] | | | | | | [phone] | | | | | | | | +--------+ + + + + documented as of this encounter Visit Diagnoses Not on filedocumented in this encounter"
--- OUTSIDE RECORDS SUMMARY | ~2020-05-23 | XMS | Encounter Summary ---
Demographics + + + | Address | [address] | | | [place] [address] | + + + | Home Phone [...] [place] | | | | | [address] | | + + + + + Care Team Providers + +------+ + | Care Mainframe Developer Name | Role | Phone | [...] | | | | | [address] | [address] | | | | | [place] [address] | | | | | | [phone] | | | +--------+ + + + [...] + + + +---------+ + + | [place]-3 Fatty | Take 1,000 mg by | [...] [address] | | | | | | [place] [address] | | | | | | [phone] | | | | | | | | +--------+ + + + + | 08/28/ | Office | Cardiology | Dora De La Torre | | | 2020 | Visit | | [address] | | | | | | [address] | | | | | | [place] [address] | | | | | | [phone] | | | | | | | | +--------+ + + + + documented as of this encounter Visit Diagnoses Not on filedocumented in this encounter"
--- OUTSIDE RECORDS SUMMARY | ~2020-05-23 | XMS | Encounter Summary ---
Demographics + + + | Address | [address] | | | [place] [address] | + + + | Home Phone [...] [place] | | | | | [address] | | + + + + + Care Team Providers + +------+ + | Care Principal Product Manager Name | Role | Phone | [...] | Radiology | [facility] | [facility] | | | | | atrial | CREDIT INTERVIEWER [address] | [address] | | | | | fibrillation | [address] | [place] | | | | | History of | [address] | [place], [place] | | | | | stroke | [place], [place] | [address] | | | | | Sinus | [address] | Phone: | | | | | tachycardia | Phone: | [phone] | | | | | by | [phone] | Fax: | | | | | electrocardi | Fax: | [phone] | | | | | ogram New | [phone] | | | | | | onset [...] + + | 01/09/ | Office | [facility] | Roxannmiguel ángelDora | History of atrial | | 2020 | Visit | CARDIOLOGY [place] | [address] | fibrillation | | | | [address] | [address] | (Primary Dx); Benign | | | | [address] | [place] [address] | essential HTN; | | | | [place], [place] | [phone] | History of | | | | [address] | | hypothyroidism; | | | | [phone] | | Stress | | | | [...] an urgent Echo to be done at [facility] to follow up on new left bundle [...] of fatigue and shortness of breath. Her [id number] VASC score is 4 (stroke, HTN, gender) [...] go back to volunteering at the local [employer], though this plan will need to be on hold with current epidemic restrictions . She reports after she lost 160 pounds with a gastric sleeve that she was retested for sle ep apnea 2 years ago, and told the results negative, but has not had CPAP for 3 years She has previously seen Dr. Garland in [place], and different sleep provider in [facility] when lived over there. She reports she [...] thirst or hunger. Psychiatric/Behavioral: Bipolar/Schizophrenia. Tx'd by [facility] Vaccines: Current on flu vaccine: 2019 Current on pneumonia vaccine:PPSV 23 05/29/2013 Habits/Social : Denies history of smoking. Denies EtOH use. Denies recreational or illici t drug use. Exercises sporadically. Lives in [place] . Outpatient Medications Prior to Visit Medication [...] by mouth nightly. Blood Glucose Monitoring Suppl ([facility] VERIO FLEX SYSTEM) w/Device KIT by [...] s better controlled. LABS Labs: 12/26/2018: ( [facility])CMP: Sodium 139, potassium 4.2, chloride 99, BUN 10, creatinine 0. 7, BNP 28. CBC: WBC 7.8, hemoglobin 14.3, hematocrit 42.7, platelets 214 Labs: 09/28/2019:( [facility]) CBC: WBC 7.8, hemoglobin 14.9, hematocrit 43.8, platelets 221. C MP: Sodium 132, potassium 4.2, chloride 95, AST 76, ALT 76, alk phos 134 Labs: 10/11/2019:( [facility]) CBC: WBC 6.7, RBC 4.97, hemoglobin 15.2, hematocrit 44.7, platel ets 200. CMP: Glucose 385, BUN 7, creatinine 0.62, GFR 97, sodium 131, potassium 4.1, chlor kelby 95, albumin 4.3, total bilirubin 0.6, AST 75, ALT 73, alk phos 144. Thyroid: TSH 4.27 Labs: 10/12/2020:( [facility]) CBC: WBC 7, RBC [...] and reviewed her EKG results with her ethylbenzene oxidizer, Dr. Peterson, who is in the cli vick[place] today, and the plan is to get an updated echo to evaluate her for any new wall motion ab normalities. If she has any wall motion abnormalities, she will need to have further evalua tion for ischemic heart disease in [place] such as a stress test or angiogram [...] continuity of care purp ose [facility] Cardiology 01/10/2020 docume nted in this encounter [...] [address] | | | | | | [place] [address] | | | | | | [phone] | | | | | | | | +--------+ + + + + | 08/28/ | Office | Cardiology | Dora De La Torre | | | 2019 | Visit | | [address] | | | | | | [address] | | | | | | [place] [address] | | | | | | [phone] | | | | | | | [...] | | | | | | [place] ([id number]) on | | | | | | [...]
--- OUTSIDE RECORDS SUMMARY | ~2020-05-23 | XMS | Encounter Summary ---
Demographics + + + | Address | [address] | | | [place] [address] | + + + | Home Phone [...] [place] | | | | | [address] | | + + + + + Care Team Providers + +------+ + | Care Truck Car And Bus Cleaner Name | Role | Phone [...] + + | 04/30/ | Office | [facility] | Russell Alfaro PA | ROGERS on CPAP (Primary | | 2015 | Visit | SLEEP DISORDER [address] | [address] | Dx) | | | | [address] | [place] | | | | | [place] [address] | [address] | | | | | [phone] | | | +--------+---------+ + + + [...] encounter Progress Notes Gail Cadet, Master of [employer] - 04/30/2015 11:12 AM PDTFormatting of this note might be khoi rivas from the original. 04/30/15 1100 [place] Depression Inventory-II Depression Score 9 - Minimal depression Insomnia Severity Index Insomnia Severity Index 13 [place] Sleepiness Scale Sitting and reading 3 Watching [...] appro priate paperwork. Thirty minutes were spent [id number], with the majority of time spent i [...] [address] | | | | | | [place] [address] | | | | | | [phone] | | | | | | | | +--------+ + + + + | 08/28/ | Office | Cardiology | Dora De La Torre | | | 2020 | Visit | | [address] | | | | | | [address] | | | | | | [place] [address] | | | | | | [phone] | | | | | | | | +--------+ + + + + documented as of this encounter Visit Diagnoses + + | Diagnosis | + + | ROGERS on CPAP - Primary Obstructive sleep apnea (adult) (pediatric) | + + documented in this encounter"
--- OUTSIDE RECORDS SUMMARY | ~2020-05-23 | XMS | Encounter Summary ---
Demographics + + + | Address | [address] | | | [place] [address] | + + + | Home Phone [...] [place] | | | | | [address] | | + + + + + [...] + + | 02/27/ | Telephone | [facility] | Katharine Cardona PA-C | Appointment (New | | 2014 | | MEDICINE [address] | Patient) | | | | [address], | [place] [address] | | | | | [place] [address] | [phone] | | | | | [phone] | | | +--------+ + + + [...] - 02/27/2015 12:11 PM PDTCall placed to Davdi plascencia regarding her new patient paperwork. Cindy was informed that Dr. Fry and Katharine DEGROOT do not generally prescribe narcotic medications for patients. Those patients are re ferred to [facility]. Cindy stated that would be fine with her. She stated she is 7 months post-back surgery per Dr. Teresa and only uses the hydrocodone and oxycodone occ asionally. She said she is trying to get off the oxycodone completely. Cindy said she saw Dr. Newman this morning to address her myositis issues. She agreed to referral to [facility]. Appointment scheduled for 03-06-15 with Katharine DEGROOT. [...] [address] | | | | | | [place] [address] | | | | | | [phone] | | | | | | | | +--------+ + + + + | 08/28/ | Office | Cardiology | Dora De La Torre | | | 2019 | Visit | | [address] | | | | | | [address] | | | | | | [place] [address] | | | | | | [phone] | | | | | | | | +--------+ + + + + documented as of this encounter Visit Diagnoses Not on filedocumented in this encounter"
--- OUTSIDE RECORDS SUMMARY | ~2020-05-23 | XMS | Encounter Summary ---
Demographics + + + | Address | [address] | | | [place] [address] | + + + | Home Phone [...] [place] | | | | | [address] | | + + + + + Care Team Providers + +------+ + | Care Transformer Mechanic Name | Role | Phone | [...] | MED CTR EXTERNAL | MD Cheli [address] | | | | | IMAGING [address] | [address] | | | | | [address] [place] | [place] [address] | | | | | [place] [address] | | | | | | [phone] | | | +--------+ + + + [...] [address] | | | | | | [place] [address] | | | | | | [phone] | | | | | | | | +--------+ + + + + | 08/28/ | Office | Cardiology | Dora De La Torre | | | 2019 | Visit | | [address] | | | | | | [address] | | | | | | [place] [address] | | | | | | [phone] | | | | | | | [...]
--- OUTSIDE RECORDS SUMMARY | ~2020-05-23 | XMS | Encounter Summary ---
Demographics + + + | Address | [address] | | | [place] [address] | + + + | Home Phone [...] [place] | | | | | [address] | | + + + + + Care Team Providers + +------+ + | Care Cloth Cutter Name | Role | Phone | [...] | | | | | | | [address] | | | | | | | Phone: | | | | | | | [phone] | | | | | | | Fax: | | | | | | | [phone] | | +--------+--------+ + + + + Encounter Details +--------+---------+ + + + | Date | Type | Department | Care Team | Description | +--------+---------+ + + + | 02/27/ | Office | [facility] | Baudilio Newman | Neuropathy (Primary | | 2015 | Visit | NEUROLOGY LAURIE | MD Pollo Need updated | Dx); Sleep apnea; | | | | [address] [facility], | address | Stroke (HCC); | | | | [address] [place] | | Thyroid disease | | | | [place] [address] | | | | | | [phone] | | | +--------+---------+ + + + [...] supply of blood, brain tissue quickly dies. [id number] [employer]. [address] [place] [address]. All righ ts reserved. This information is not intended as a substitute for professional medical care. Always follow your healthcare professional's instructions. documented in this encounter Progress Notes Baudilio Newman MD - 02/27/2015 10:31 AM PDTFormatting of this note might be differen t from the original. Baudilio Newman MD [address] [place] [address], [address] [place] [address] Neurology Outpatient New Patient Note Referring Provider: [...] history. Notes from her recent hospitalization at [facility] were reviewed in detail. Ms. Arndt started feeling off in the evening of 02/01. She felt dizzy and laid down to slee p. Upon waking, she felt her right side was numb. She tried to get up to go to the bathroom and realized she was weak as well on the right. She was taken to [facility] where she was diagnosed with a TIA/stroke [...] systol ically. She was reevaluated in the [facility] ED for one such event and her [...] hospitalization . This specimen was characterized at [facility], but the report is not currently available for [facility]. Unfortunately, Ms. Arndt notes that her right [...] N/A; Surgeon: Frandy castellanos DO; Location: [facility] MAIN OR Current Medications: Outpatient [...] tablet Take 15 mg by mouth nightly. Bath-3 Fatty Acids (FISH OIL CONCENTRATE) 1000 MG [...] BMI 46.04 kg /m2 Neck Circumference: 14" Bullhead Sleepiness Scale: 2 General: well developed and [...] Romberg test negative Radiographic Review: CTA from [facility] reviewed on i[facility]ITE. No significant stenoses seen [...] No results found for this basename: hba1c, mon5luc, ldl, ldldirect, ldlext, dldlex Lab Results Component [...] [address] | | | | | | [place] [address] | | | | | | [phone] | | | | | | | | +--------+ + + + + | 08/28/ | Office | Cardiology | Dora De La Torre | | | 2020 | Visit | | [address] | | | | | | [address] | | | | | | [place] [address] | | | | | | [phone] | | | | | | | [...]
--- OUTSIDE RECORDS SUMMARY | ~2020-05-23 | XMS | Encounter Summary ---
Demographics + + + | Address | [address] | | | [place] [address] | + + + | Home Phone [...] [place] | | | | | [address] | | + + + + + Care Team Providers + +------+ + | Care Load Dropper Name | Role | Phone | + [...] + + | 07/10/ | Telephone | [facility] | Frandy Teresa, | Imaging Only (1 year | | 2014 | | NE[address]URGERY [address] | DO [address] | x-ray ) | | | | [address] | [address] [place], [place] | | | | | [place], [place] | [address] | | | | | [address] | | | | | | [phone] | | | +--------+ + + + [...] [address] | | | | | | [place] [address] | | | | | | [phone] | | | | | | | | +--------+ + + + + | 08/28/ | Office | Cardiology | Dora De La Torre | | | 2019 | Visit | | [address] | | | | | | [address] | | | | | | [place] [address] | | | | | | [phone] | | | | | | | | +--------+ + + + + documented as of this encounter Visit Diagnoses Not on filedocumented in this encounter"
--- OUTSIDE RECORDS SUMMARY | ~2020-05-23 | XMS | Encounter Summary ---
Demographics + + + | Address | [address] | | | [place] [address] | + + + | Home Phone [...] [place], [place] | | | | | [address] | | + + + + + Care Team Providers + +------+ + | Care Materials Inspector Name | Role | Phone | + +------+ + PCP | Unavailable | + +------+ + Encounter Details +--------+ + + + + | Date | Type | Department | Care Team | Description | +--------+ + + + + | 09/24/ | Hospital | [facility] | | | | 1993 | Encounter | MED CTR LABORATORY | | | | | | [address] | | | | | | [place] | | | | | | [address] | | | | | | [phone] | | | +--------+ + + + [...] | | | | | [place] [address] | | | | | | [phone] | | | | | | | | +--------+ + + + + | 08/28/ | Office | Cardiology | Dora De La Torre | | | 2020 | Visit | | [address] | | | | | | [address] | | | | | | [place] [address] | | | | | | [phone] | | | | | | | | +--------+ + + + + documented as of this encounter Visit Diagnoses Not on filedocumented in this encounter"
--- OUTSIDE RECORDS SUMMARY | ~2020-05-23 | XMS | Encounter Summary ---
Demographics + + + | Address | [address] | | | [place] [address] | + + + | Home Phone [...] [place], [place] | | | | | [address] | | + + + + + Care Team Providers + +------+ + | Care Towboat Operator Name | Role | Phone | + +------+ + PCP | Unavailable | + +------+ + Encounter Details +--------+ + + + + | Date | Type | Department | Care Team | Description | +--------+ + + + + | 12/27/ | Hospital | [facility] | | | | 1997 - | Encounter | MED CTR GENERIC PSY | | | | | | CONV DEPT [address] | | | | 01/01/ | | [address], | | | | 1997 | | [place] [address] | | | | | | [phone] | | | +--------+ + + + [...] [address] | | | | | | [place] [address] | | | | | | [phone] | | | | | | | | +--------+ + + + + | 08/28/ | Office | Cardiology | Dora De La Torre | | | 2019 | Visit | | [address] | | | | | | [address] | | | | | | [place] [address] | | | | | | [phone] | | | | | | | | +--------+ + + + + documented as of this encounter Visit Diagnoses Not on filedocumented in this encounter"
--- OUTSIDE RECORDS SUMMARY | ~2020-05-23 | XMS | Encounter Summary ---
Demographics + + + | Address | [address] | | | [place] [address] | + + + | Home Phone [...] [place] | | | | | [address] | | + + + + + Care Team Providers + +------+ + | Care Pumping Station Engineer Name | Role | Phone | [...] + + | 09/10/ | Documentati | [facility] | Katharine Moncada, | Other (urgent | | 2019 | on | CARDIOLOGY [place] | Technologist | report) | | | | [address] | | | | | | [place] | | | | | | [address] | | | | | | [phone] | | | +--------+ + + + [...] | | | | | [place] [address] | | | | | | [phone] | | | | | | | | +--------+ + + + + | 08/28/ | Office | Cardiology | Dora De La Torre | | | 2020 | Visit | | [address] | | | | | | [address] | | | | | | [place] [address] | | | | | | [phone] | | | | | | | | +--------+ + + + + documented as of this encounter Visit Diagnoses Not on filedocumented in this encounter"
--- OUTSIDE RECORDS SUMMARY | ~2020-05-23 | XMS | Encounter Summary ---
Demographics + + + | Address | [address] | | | [place] [address] | + + + | Home Phone [...] [place], [place] | | | | | [address] | | + + + + + Care Team Providers + +------+ + | Care Solutions Executive Cloud Sales Name | Role | Phone | + +------+ + PCP | Unavailable | + +------+ + Encounter Details +--------+ + + + + | Date | Type | Department | Care Team | Description | +--------+ + + + + | 02/24/ | Hospital | [facility] | | | | 1997 | Encounter | MED CTR EMERGENCY | | | | | | [address] | | | | | | [place] | | | | | | [address] | | | | | | [phone] | | | +--------+ + + + [...] | | | | | [place] [address] | | | | | | [phone] | | | | | | | | +--------+ + + + + | 08/28/ | Office | Cardiology | Dora De La Torre | | | 2020 | Visit | | [address] | | | | | | [address] | | | | | | [place] [address] | | | | | | [phone] | | | | | | | | +--------+ + + + + documented as of this encounter Visit Diagnoses Not on filedocumented in this encounter"
--- OUTSIDE RECORDS SUMMARY | ~2020-05-23 | XMS | Encounter Summary ---
Demographics + + + | Address | [address] | | | [place] [address] | + + + | Home Phone [...] [place], [place] | | | | | [address] | | + + + + + Care Team Providers + +------+ + | Care Hydroelectric Plant Electrical Engineer Name | Role | Phone | + +------+ + PCP | Unavailable | + +------+ + Encounter Details +--------+ + + + + | Date | Type | Department | Care Team | Description | +--------+ + + + + | 06/17/ | Hospital | [facility] | | | | 1991 - | Encounter | MED CTR GENERIC PSY | | | | | | CONV DEPT [address] | | | | 06/18/ | | [address], | | | | 1991 | | [place] [address] | | | | | | [phone] | | | +--------+ + + + [...] [address] | | | | | | [place] [address] | | | | | | [phone] | | | | | | | | +--------+ + + + + | 08/28/ | Office | Cardiology | Dora De La Torre | | | 2019 | Visit | | [address] | | | | | | [address] | | | | | | [place] [address] | | | | | | [phone] | | | | | | | | +--------+ + + + + documented as of this encounter Visit Diagnoses Not on filedocumented in this encounter"
--- OUTSIDE RECORDS SUMMARY | ~2020-05-23 | XMS | Encounter Summary ---
Demographics + + + | Address | [address] | | | [place] [address] | + + + | Home Phone [...] [place], [place] | | | | | [address] | | + + + + + Care Team Providers + +------+ + | Care Catch Basin Cleaner Name | Role | Phone | + +------+ + PCP | Unavailable | + +------+ + Encounter Details +--------+ + + + + | Date | Type | Department | Care Team | Description | +--------+ + + + + | 02/28/ | Hospital | [facility] | Deon Gonzales | | | 2012 | Encounter | MED CTR SLEEP | MD [address] | | | | | [place] [address] | [address] [facility] | | | | | [place], [place] | [place] [address] | | | | | [address] | [phone] | | | | | [phone] | | | +--------+ + + + [...] - 02/29/2012 2:36 PM PDTDATE: 02/29/2012 cc: [facility] Sleep Center Deon Gonzales Jr., MD, [facility] POSITIVE PRESSURE TITRATION STUDY [...] the patient scored 18 points on the Fletcher Sleepiness Scale, which endorses a severe degree [...] advised. Deon Gonzales Jr., MD, FAASM Diplomate [place] Board of Internal Medicine Diplomate in Sleep Medicine School Janitor, [facility] Clinical Sanitary Inspector Katelin joy [facility], [facility] JOB #: [id number] EXT JOB #:[id number] EDITED: 03/03/2012 07:26 <Electronically Signed by Deon [...] [address] | | | | | | [place] [address] | | | | | | [phone] | | | | | | | | +--------+ + + + + | 08/28/ | Office | Cardiology | Dora De La Torre | | | 2019 | Visit | | [address] | | | | | | [address] | | | | | | [place] [address] | | | | | | [phone] | | | | | | | | +--------+ + + + + documented as of this encounter Visit Diagnoses Not on filedocumented in this encounter"
--- OUTSIDE RECORDS SUMMARY | ~2020-05-23 | XMS | Encounter Summary ---
Demographics + + + | Address | [address] | | | [place] [address] | + + + | Home Phone [...] [place] | | | | | [address] | | + + + + + Care Team Providers + +------+ + | Care Barrel Washer Machine Name | Role | Phone | [...] | | | [address] [place] | [place] [address] | | | | | [place] [address] | | | | | | [phone] | | | +--------+ + + + [...] [address] | | | | | | [place] [address] | | | | | | [phone] | | | | | | | | +--------+ + + + + | 08/28/ | Office | Cardiology | Dora De La Torre | | | 2019 | Visit | | [address] | | | | | | [address] | | | | | | [place] [address] | | | | | | [phone] | | | | | | | [...]
--- OUTSIDE RECORDS SUMMARY | ~2020-05-23 | XMS | Encounter Summary ---
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 ) | | | | [place] | | | | | | [address] | | | | | | [phone] | | | +--------+ + + + [...] Miscellaneous Notes Telephone Encounter - Ashley Chávez, Field Crop Harvest Contractor - 07/24/2019 11:13 AM Seferino t says [...] gals to see what can be done. JDW:ACCOUNTS RECEIVABLE SUPERVISOR-AAMA. [facility] umented in this encounter Plan [...] [address] | | | | | | [place] [address] | | | | | | [phone] | | | | | | | | +--------+ + + + + | 08/28/ | Office | Cardiology | Dora De La Torre | | | 2019 | Visit | | [address] | | | | | | [address] | | | | | | [facility] [place] [place] [address] | | | | | | [phone] | | | | | | | | +--------+ + + + + documented as of this encounter Visit Diagnoses Not on filedocumented in this encounter"
--- OUTSIDE RECORDS SUMMARY | ~2020-05-23 | XMS | Encounter Summary ---
Demographics + + + | Address | [address] | | | [place] [address] | + + + | Home Phone [...] [place] | | | | | [address] | | + + + + + Care Team Providers + +------+ + | Care Creative Assistant Name | Role | Phone | [...] | 09/26/ | Refill | [facility] | Frandy Teresa, | Medication Refill | | 2013 | | [address] | DO [address] | | | | | [address] [facility] | [address] [place], [place] | | | | | [place], [place] | [id number] | | | | | [address] | | | | | | [phone] | | | +--------+--------+ + + + [...] will come today. [facility]reiber RN at [...] [address] | | | | | | [place] [address] | | | | | | [phone] | | | | | | | | +--------+ + + + + | 08/28/ | Office | Cardiology | Dora De La Torre | | | 2019 | Visit | | [address] | | | | | | [address] | | | | | | [place] [address] | | | | | | [phone] | | | | | | | | +--------+ + + + + documented as of this encounter Visit Diagnoses Not on filedocumented in this encounter"
--- OUTSIDE RECORDS SUMMARY | ~2020-05-23 | XMS | Encounter Summary ---
Demographics + + + | Address | [address] | | | [place] [address] | + + + | Home Phone [...] [place], [place] | | | | | [address] | | + + + + + Care Team Providers + +------+ + | Care Fabric Stretcher Name | Role | Phone | + +------+ + PCP | Unavailable | + +------+ + Encounter Details +--------+ + + + + | Date | Type | Department | Care Team | Description | +--------+ + + + + | 12/27/ | Hospital | [facility] | | | | 1995 | Encounter | MED CTR LABORATORY | | | | | | [address] | | | | | | [place] | | | | | | [address] | | | | | | [phone] | | | +--------+ + + + [...] | | | | | [place] [address] | | | | | | [phone] | | | | | | | | +--------+ + + + + | 08/28/ | Office | Cardiology | Dora De La Torre | | | 2020 | Visit | | [address] | | | | | | [address] | | | | | | [place] [address] | | | | | | [phone] | | | | | | | | +--------+ + + + + documented as of this encounter Visit Diagnoses Not on filedocumented in this encounter"
--- OUTSIDE RECORDS SUMMARY | ~2020-05-23 | XMS | Encounter Summary ---
Demographics + + + | Address | [address] | | | [place] [address] | + + + | Home Phone [...] [place] | | | | | [address] | | + + + + + Care Team Providers + +------+ + | Care Content Strategy Lead Name | Role | Phone | [...] + + | 08/16/ | Documentati | [facility] | Katharine Moncada, | Other (urgent | | 2019 | on | CARDIOLOGY [place] | Technologist | report) | | | | [address] | | | | | | [place] | | | | | | [address] | | | | | | [phone] | | | +--------+ + + + [...] | | | | | [place] [address] | | | | | | [phone] | | | | | | | | +--------+ + + + + | 08/28/ | Office | Cardiology | Dora De La Torre | | | 2020 | Visit | | [address] | | | | | | [address] | | | | | | [place] [address] | | | | | | [phone] | | | | | | | | +--------+ + + + + documented as of this encounter Visit Diagnoses Not on filedocumented in this encounter"
--- OUTSIDE RECORDS SUMMARY | ~2020-05-23 | XMS | Encounter Summary ---
Demographics + + + | Address | [address] | | | [place] [address] | + + + | Home Phone [...] [place] | | | | | [address] | | + + + + + Care Team Providers + +------+ + | Care Retort Cooler Name | Role | Phone | [...] | 08/26/ | Refill | [facility] | Frandy Teresa, | Medication Refill | | 2013 | | [address] | DO [address] | | | | | [address] [facility] | [address] [place], [place] | | | | | [place], [place] | [id number] | | | | | [address] | | | | | | [phone] | | | +--------+--------+ + + + [...] to notify that p rescription refill for Luckey has been authorized. Informed about MRI results per MD results. Also notified about new medication neurontin. Pt verbalized understanding and will notify o ur office if her numbness to bilat feet (upper and lower) doesn't improve. Pt requested refi ll rx of Luckey to be mailed via certified mail to her [facility] address at [facility] signed by Megan Schreiber, RN at [...] PSTPt called to requesting medication refill of Luckey. Pt c/o l ower back and left [...] [address] | | | | | | [place] [address] | | | | | | [phone] | | | | | | | | +--------+ + + + + | 08/28/ | Office | Cardiology | Dora De La Torre | | | 2019 | Visit | | [address] | | | | | | [address] | | | | | | [place] [address] | | | | | | [phone] | | | | | | | | +--------+ + + + + documented as of this encounter Visit Diagnoses Not on filedocumented in this encounter"
--- OUTSIDE RECORDS SUMMARY | ~2020-05-23 | XMS | Encounter Summary ---
Demographics + + + | Address | [address] | | | [place] [address] | + + + | Home Phone [...] [place] | | | | | [address] | | + + + + + Care Team Providers + +------+ + | Care Certified Athletic Trainer Name | Role | Phone | [...] [id number] | | | | | | [place], [place] | | | | | | [address] | | | | | | [phone] | | | +--------+ + + + [...] [facility] | [address] | [place] [address] | | | PATHOLOGY | [address] [...] Re | | | | | | [id number] | | | | + + + + + + + + | Specimen | + + | | + + + + + + + | Performing | Address | City/State/Zipcode | Phone Number | | Organization | | | | + + + + + | [facility] | [address] | [place] [address] | | | PATHOLOGY | [address] [...] Re | | | | | | [phone] | | | | + + + + + + + + | Specimen | + + | | + + + + + + + | Performing | Address | City/State/Zipcode | Phone Number | | Organization | | | | + + + + + | [facility] | [address] | [place] [address] | | | PATHOLOGY | [address] [...] Re | | | | | | [id number] | | | | + + + + + + + + | Specimen | + + | | + + + + + + + | Performing | Address | City/State/Zipcode | Phone Number | | Organization | | | | + + + + + | [facility] | [address] | [place] [address] | | | PATHOLOGY | [address] [...] Re | | | | | | [address] | | | | + + + + + + + + | Specimen | + + | | + + + + + + + | Performing | Address | City/State/Zipcode | Phone Number | | Organization | | | | + + + + + | [facility] | [address] | [place] [address] | | | PATHOLOGY | [address] | | | + + + + + documented in this encounter Visit Diagnoses Not on filedocumented in this encounter"
--- OUTSIDE RECORDS SUMMARY | ~2020-05-23 | XMS | Encounter Summary ---
Demographics + + + | Address | [address] | | | [place] [address] | + + + | Home Phone [...] [place] | | | | | [address] | | + + + + + Care Team Providers + +------+ + | Care Slaughterer Religious Ritual Name | Role | Phone | + [...] | | | [address], | [place] [address] | | | | | [place] [address] | [phone] | | | | | [phone] | | | +--------+--------+ + + + [...] [address] | | | | | | [place] [address] | | | | | | [phone] | | | | | | | | +--------+ + + + + | 08/28/ | Office | Cardiology | Dora De La Torre | | | 2020 | Visit | | [address] | | | | | | [address] | | | | | | [place] [address] | | | | | | [phone] | | | | | | | | +--------+ + + + + documented as of this encounter Visit Diagnoses + + | Diagnosis | + + | Essential hypertension - Primary Unspecified essential hypertension | + + documented in this encounter"
--- OUTSIDE RECORDS SUMMARY | ~2020-05-23 | XMS | Encounter Summary ---
Demographics + + + | Address | [address] | | | [place] [address] | + + + | Home Phone [...] [place] | | | | | [address] | | + + + + + Care Team Providers + +------+ + | Care Hogshead Roller Name | Role | Phone | [...] | | | | | | [place], | | | | | | [place] [address] | | | | | | [phone] | | | +--------+ + + + [...] | | + +---------+ + + | [facility]PART[facility] OF | | | | | RADIOLOGY | | | | + +---------+ + + documented in this encounter Visit Diagnoses Not on filedocumented in this encounter"
--- OUTSIDE RECORDS SUMMARY | ~2020-05-23 | XMS | Encounter Summary ---
Demographics + + + | Address | [address] | | | [place] [address] | + + + | Home Phone [...] [place] | | | | | [address] | | + + + + + Care Team Providers + +------+ + | Care Medical Or Surgical Instrument Maker Name | Role | Phone | [...] [place] | | | | | | [address] | | | | | | [phone] | | | +--------+ + + + [...] | | | | | [place] [address] | | | | | | [phone] | | | | | | | | +--------+ + + + + | 08/28/ | Office | Cardiology | Dora De La Torre | | | 2020 | Visit | | [address] | | | | | | [address] | | | | | | [place] [address] | | | | | | [phone] | | | | | | | | +--------+ + + + + documented as of this encounter Visit Diagnoses Not on filedocumented in this encounter"
--- OUTSIDE RECORDS SUMMARY | ~2020-05-23 | XMS | Encounter Summary ---
Demographics + + + | Address | [address] | | | [place] [address] | + + + | Home Phone [...] [place] | | | | | [address] | | + + + + + Care Team Providers + +------+ + | Care Artist'S Model Name | Role | Phone | + +------+ + | Natalee Andersen NP | PCP | | + +------+ + Encounter Details +--------+ + + + + | Date | Type | Department | Care Team | Description | +--------+ + + + + | 06/26/ | Hospital | [facility] | Heather Cordero PT | | | 2014 | Encounter | MED CTR ACUTE | [address] | | | | | PHYSICAL THERAPY | [place] | | | | | [address] | [address] | | | | | [place] [address] | | | | | | [phone] | | | +--------+ + + + [...] + + + +---------+ + + | Hickman-3 Fatty | Take 1,000 mg by | [...] | | | | | [place] [address] | | | | | | [phone] | | | | | | | | +--------+ + + + + | 08/28/ | Office | Cardiology | Dora De La Torre | | | 2020 | Visit | | [address] | | | | | | [address] | | | | | | [place] [address] | | | | | | [phone] | | | | | | | | +--------+ + + + + documented as of this encounter Visit Diagnoses Not on filedocumented in this encounter"
--- OUTSIDE RECORDS SUMMARY | ~2020-05-23 | XMS | Encounter Summary ---
Demographics + + + | Address | [address] | | | [place] [address] | + + + | Home Phone [...] [place] | | | | | [address] | | + + + + + Care Team Providers + +------+ + | Care Business Analysis Professional Name | Role | Phone | [...] | Services | ogy | Epigastric | [facility], | Tyrese Shelley MD | | | Required | | abdominal | [place], | [address], | | | | | pain GERD | EXTERMINATOR HELPER TERMITE [address] | [address] | | | | | (gastroesoph | [address] | [place], | | | | | ageal reflux | [address] | [place] [id number] | | | | | disease) | [place], | Phone: | | | | | Fatty liver | [place] [address] | [phone] | | | | | DM | Phone: | Fax: | | | | | (diabetes | [phone] | [phone] | | | | | mellitus) | Fax: | | | | | | (HCC) | [phone] | | +--------+ + + + + + Reason for Visit + + + | Reason | Comments | + + + | Gastroesophageal | epigastric pain | | Reflux | | + + + Encounter Details +--------+---------+ + + + | Date | Type | Department | Care Team | Description | +--------+---------+ + + + | 03/06/ | Office | [facility] | [facility], | Epigastric abdominal | | 2012 | Visit | GASTROENTEROLOGY | FORTUNATO Thomas [address] | pain (Primary Dx); | | | | [address] | [address] | GERD | | | | [address] [place], [place] | [place] | (gastroesophageal | | | | [address] | [address] | reflux disease); | | | | [phone] | | Fatty liver; DM | | [...] by Dr. Saravanan Tsai, in [facility]. Colonoscopy was done 05/[address] Hamlin in [facility]. Allergies Allergen Reactions Demerol Duloxetine Erythromycin Fluoxetine [...] encounter Miscellaneous Notes Miscellaneous - [facility] - 03/06/2013 12:00 AM PDT iscellaneous - [facility] - 03/06/2013 12:00 AM PDTEle ctronically signed by Mariah Schulte at 04/09/2013 9:48 AM PDTMiscellaneous - [facility]BASE [facility] - 03/06/2013 12:00 AM PDT [...] [address] | | | | | | [place] [address] | | | | | | [phone] | | | | | | | | +--------+ + + + + | 08/28/ | Office | Cardiology | Dora De La Torre | | | 2019 | Visit | | [address] | | | | | | [address] | | | | | | [place] [address] | | | | | | [phone] | | | | | | | [...]
--- OUTSIDE RECORDS SUMMARY | ~2020-05-23 | XMS | Encounter Summary ---
Demographics + + + | Address | [address] | | | [place] [address] | + + + | Home Phone [...] [place] | | | | | [address] | | + + + + + Care Team Providers + +------+ + | Care Transformer Tester Name | Role | Phone | [...] + + | 02/13/ | Office | [facility] | Dora De La Torre | History of atrial | | 2020 | Visit | CARDIOLOGY [place] | [address] | fibrillation | | | | [address] | [place] | (Primary Dx); New | | | | [address] | [place] [address] | onset left bundle | | | | [place] | [phone] | branch block (LBBB); | | | | [address] | | Benign essential | | | | [phone] | | HTN; History of | | [...] | | | | obesity) ([facility]) | +--------+---------+ + + + [...] 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 Her [id number] VASC score is 4 (stroke, HTN, gender) [...] She has previously seen Dr. 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 Psychiatric/Behavioral: Bipolar/Schizophrenia. Tx'd by [employer] Vaccines: Current on flu vaccine: 2019 Current on pneumonia vaccine:PPSV 23 05/29/2013 Habits/Social : Denies history of smoking. Denies EtOH use. Denies recreational or illici t drug use. Exercises sporadically. Lives in [place] . Outpatient Medications Prior to Visit Medication [...] by mouth nightly. Blood Glucose Monitoring Suppl ([employer] VERIO FLEX SYSTEM) w/Device KIT by Does [...] discomfort, patient unable to walk on [employer]. Resting EKG normal sinus rhythm, arrhythmias ventricular [...] nonspecific ST-T wave abnormality rate 82 bpm, NJ 176 ms, QRS 80 ms, QTC 446 ms tracing personally reviewed by me EK12/17/2019: Sinus tachycardia, nonspecific ST wave abnormalities, rate 105 bpm, NJ 196 ms, QRS 74 ms, QTC 430 ms, tracing personally reviewed by me, and compared to EKG performed in February 2019, rate is less well-controlled EK01/10/2020 (metoprolol XL 50 mg twice daily. Normal sinus rhythm, new left bundle bran ch block Rate 74 bpm, NJ 204 ms, QRS 138 ms, QTC 488 [...] bundle branch block. Ra te 105 bpm, NJ 184 ms, QRS 144 ms, QTC 489 ms, tracing personally reviewed by me, and compar ed to EKG performed in December , rate is less well-controlled LABS Labs: 12/26/2018: ( [facility])CMP: Sodium 139, potassium 4.2, chloride 99, BUN 10, creatinine 0. 7, BNP 28. CBC: WBC 7.8, hemoglobin 14.3, hematocrit 42.7, platelets 214 Labs: 09/28/2019:( [facility]) CBC: WBC 7.8, hemoglobin 14.9, hematocrit 43.8, platelets 221. C MP: Sodium 132, potassium 4.2, chloride 95, AST 76, ALT 76, alk phos 134 Labs: 10/11/2019:( [facility]) CBC: WBC 6.7, RBC 4.97, hemoglobin 15.2, hematocrit 44.7, platel ets 200. CMP: Glucose 385, BUN 7, creatinine 0.62, GFR 97, sodium 131, potassium 4.1, chlor kelby 95, albumin 4.3, total bilirubin 0.6, AST 75, ALT 73, alk phos 144. Thyroid: TSH 4.27 Labs: 10/12/2020:( [facility]) CBC: WBC 7, RBC 4.93, hemoglobin 14.7, hematocrit 44.1, platele ts 186 normal UA CMP: Glucose 381, BUN 6, creatinine 0.63, GFR 95, sodium 133, potassium 3.8 , chloride 97, albumin 4.3, total bili 0.6, AST 62, ALT 75, alk phos 145 thyroid: TSH 3.07 Labs: 10/20/2019:( [facility]) CBC: WBC 7.1, RBC 4.93, [...] reviewed her EKG and Echo with her steward/stewardess room Dr. Peterson, who was in clin ic [...] III, BMI 40-49.9 (morbid obesity) ([facility]) Orders Placed This Encounter Procedures ECG [...] for continuity of care purp osHannah BUCIO [facility] Cardiology 02/15/2020 docume nted in [...] [address] | | | | | | [place] [address] | | | | | | [phone] | | | | | | | | +--------+ + + + + | 08/28/ | Office | Cardiology | Dora De La Torre | | | 2019 | Visit | | [address] | | | | | | [address] | | | | | | [place] [address] | | | | | | [phone] | | | | | | | [...] | | | | | DORA VELAZQUEZ ([id number]) on | | | | | | [...]
--- OUTSIDE RECORDS SUMMARY | ~2020-05-23 | XMS | Encounter Summary ---
Demographics + + + | Address | [address] | | | [place] [address] | + + + | Home Phone [...] [place], [place] | | | | | [address] | | + + + + + Care Team Providers + +------+ + | Care Activities Therapist Name | Role | Phone | + +------+ + PCP | Unavailable | + +------+ + Encounter Details +--------+ + + + + | Date | Type | Department | Care Team | Description | +--------+ + + + + | 05/23/ | Hospital | [facility] | | | | 1991 | Encounter | MED CTR XRAY [address] | | | | | | [address] | | | | | | [place] [address] | | | | | | [phone] | | | +--------+ + + + [...] | | | | | [place] [address] | | | | | | [phone] | | | | | | | | +--------+ + + + + | 08/28/ | Office | Cardiology | Dora De La Torre | | | 2019 | Visit | | [address] | | | | | | [address] | | | | | | [place] [address] | | | | | | [phone] | | | | | | | | +--------+ + + + + documented as of this encounter Visit Diagnoses Not on filedocumented in this encounter"
--- OUTSIDE RECORDS SUMMARY | ~2020-05-23 | XMS | Encounter Summary ---
Demographics + + + | Address | [address] | | | [place] [address] | + + + | Home Phone [...] [place], [place] | | | | | [address] | | + + + + + Care Team Providers + +------+ + | Care Electromechanical Engineer Name | Role | Phone | + +------+ + PCP | Unavailable | + +------+ + Encounter Details +--------+ + + + + | Date | Type | Department | Care Team | Description | +--------+ + + + + | 12/06/ | Hospital | [facility] | | | | 1994 | Encounter | MED CTR LABORATORY | | | | | | [address] | | | | | | [place] | | | | | | [address] | | | | | | [phone] | | | +--------+ + + + [...] | | | | | [place] [address] | | | | | | [phone] | | | | | | | | +--------+ + + + + | 08/28/ | Office | Cardiology | Dora De La Torre | | | 2020 | Visit | | [address] | | | | | | [address] | | | | | | [place] [address] | | | | | | [phone] | | | | | | | | +--------+ + + + + documented as of this encounter Visit Diagnoses Not on filedocumented in this encounter"
--- OUTSIDE RECORDS SUMMARY | ~2020-05-23 | XMS | Encounter Summary ---
Demographics + + + | Address | [address] | | | [place] [address] | + + + | Home Phone [...] [place] | | | | | [address] | | + + + + + Care Team Providers + +------+ + | Care Corporate Claims Examiner Name | Role | Phone | [...] | | | | | | | [address] | | | | | | | Phone: | | | | | | | [phone] | | | | | | | Fax: | | | | | | | [phone] | | +--------+ + + + + + Reason for Visit + + + | Reason | Comments | + + + | Follow-up | 3 mo po | + + + Encounter Details +--------+---------+ + + + | Date | Type | Department | Care Team | Description | +--------+---------+ + + + | 09/27/ | Office | [facility] | Frandy Teresa, | Lumbar spondylosis | | 2013 | Visit | NEUROSURGERY [address] | DO [address] | (Primary Dx); S/P | | | | [address] | [address] [place], [place] | lumbar fusion | | | | [place], [place] | [address] | | | | | [address] | | | | | | [phone] | | | +--------+---------+ + + + [...] [facility], [address] [place] [address] FAX: NEUROSURGERY FOLLOW-UP CHIEF COMPLAINT: Chief Complaint [...] Laterality: N/A; Surgeon: Frandy castellanos DO; Location: [facility] MAIN OR CURRENT MEDICATIONS: Current [...] Take 15 mg by mouth nightl y. [place]-3 Fatty Acids (FISH OIL CONCENTRATE) 1000 MG [...] encounter Miscellaneous Notes Miscellaneous - [facility] - 09/27/2014 12:00 AM PST [...] | | | | | [place] [address] | | | | | | [phone] | | | | | | | | +--------+ + + + + | 08/28/ | Office | Cardiology | Dora De La Torre | | | 2019 | Visit | | [address] | | | | | | [address] | | | | | | [place] [address] | | | | | | [phone] | | | | | | | [...]
--- OUTSIDE RECORDS SUMMARY | ~2020-05-23 | XMS | Encounter Summary ---
Demographics + + + | Address | [address] | | | [place] [address] | + + + | Home Phone [...] [place] | | | | | [address] | | + + + + + Care Team Providers + +------+ + | Care Mothercraft Nurse Name | Role | Phone | [...] + + | 09/10/ | Documentati | [facility] | Katharine Moncada, | Other (urgent | | 2019 | on | CARDIOLOGY [place] | Technologist | report) | | | | [address] | | | | | | [place] | | | | | | [address] | | | | | | [phone] | | | +--------+ + + + [...] | 2020 | visit | | [address] | | | | | | [address] | | | | | | [place] [address] | | | | | | [phone] | | | | | | | | +--------+ + + + + | 08/28/ | Office | Cardiology | Dora De La Torre | | | 2020 | Visit | | [address] | | | | | | [address] | | | | | | [place] [address] | | | | | | [phone] | | | | | | | | +--------+ + + + + documented as of this encounter Visit Diagnoses Not on filedocumented in this encounter"
--- OUTSIDE RECORDS SUMMARY | ~2020-05-23 | XMS | Encounter Summary ---
Demographics + + + | Address | [address] | | | [place] [address] | + + + | Home Phone [...] [place] | | | | | [address] | | + + + + + [...] + | 07/19/ | Telephone | [facility] | Frandy Teresa, | Appointment | | 2013 | | NEUROSURGERY [address] | DO [address] | | | | | [address] | [address] [place], [place] | | | | | [place], [place] | [id number] | | | | | [address] | | | | | | [phone] | | | +--------+ + + + [...] Spivey - 07/22/2014 8:09 AM Nakia from [facility] called back this morning to isamar mcarthure that she spoke with the patient again regarding this appointment and the patient would be ok with rescheduling to a time the following week. She just didn't want to make the trip down here right after she got back home to [place]. Janes can be reached at [phone] ectronically signed by Tiffani Humphrey at 07/22/2014 8:11 AM PDTTelephone Encounter - Lashawn Metzger - 07/19/2014 12:56 PM PDTSuarlen from [facility] called to confirm Cindy' s appointment for [...] | | | | | [place] [address] | | | | | | [phone] | | | | | | | | +--------+ + + + + | 08/28/ | Office | Cardiology | Dora De La Torre | | | 2019 | Visit | | [address] | | | | | | [address] | | | | | | [place] [address] | | | | | | [phone] | | | | | | | | +--------+ + + + + documented as of this encounter Visit Diagnoses Not on filedocumented in this encounter"
--- OUTSIDE RECORDS SUMMARY | ~2020-05-23 | XMS | Encounter Summary ---
Demographics + + + | Address | [address] | | | [place] [address] | + + + | Home Phone [...] [place] | | | | | [address] | | + + + + + Care Team Providers + +------+ + | Care It Risk Advisor Name | Role | Phone | [...] | | | | | mellitus, | [address] | [place] | | | | | controlled | Phone: | [address] | | | | | (HCC) | [phone] | Phone: | | | | | History of | Fax: | [phone] | | | | | gastric | [phone] | Fax: | | | | | restrictive | | [phone] | | | | | surgery | [...] Required | | hypertension | [address] | | | | | Lumbar | [address] [place] | [address] | | | | | radiculopath | [place], [place] | AVE | | | | | y Type 2 | [address] | [place] | | | | | diabetes | Phone: | [address] | | | | | mellitus, | [phone] | Phone: | | | | | controlled | Fax: | [phone] | | | | | (HCC) | [phone] | Fax: | | | | | Obesity, | | [phone] | | | | | Class III, [...] | | FORTUNATO & Katharine BUCIO in [place]. | + + + | Other | [...] | [address] [place] [address], | [place] [address] | of thyroid (Primary | | | | [place] [address] | [phone] | Dx); Essential | | | | [phone] | | hypertension; Iron | | | [...] Stroke | | | | | | ([facility]); Environmental | | | | [...] controlled | | | | | | ([facility]); Preventative | | | | [...] t be different from the original. Ask yoone if they think it might be helpful [...] Cont your meds as prescribed. F/U with yoone as scheduled Neuropathy Continue gabapentin. May consider increase if pain is not controlled. May benefit from switching from Paxil to one of the SNRIs or TCAs for analgesic effects, ho manju, she is doing so well on her current regimen it may not be worth making any changes an d find alternate ways to deal with the pain. Would be worth discussing with yoone Psych Back Pain Will refer to water therapy (aqua fitness) at [facility] as request ed. [...] Colonoscopy procedures 4. Schizoaffective disorder, bipolar type ([facility]) 5. Neuropathy Vitamin B-12 6. BACK PAIN, LUMBAR, WITH RADICULOPATHY Ambulatory referral to Physical Therapy 7. ROGERS on CPAP 8. Stroke ([facility]) 9. Environmental and seasonal allergies fluticasone (FLONASE) 50 mcg/nasal spray 10. Gastroesophageal reflux disease without esophagitis dexlansoprazole (DEXILANT) 60 mg D R capsule 11. History of gastric restrictive surgery Vitamin D, 25-Hydroxy Nutrition Services - External - AMB Referral 12. Obesity, Class III, BMI 40-49.9 (morbid obesity) ([facility]) Ambulatory referral to Physical Therapy Nutrition Services - External - AMB Referral 13. Type 2 diabetes mellitus, controlled ([facility]) Ambulatory referral to Physical Therapy [...] Cont your meds as prescribed. [email or web address] scheduled Neuropathy Continue gabapentin. [...] the pain. Would be worth discussing with yoone professional. Back Pain Will refer to water therapy (aqua fitness) at [facility] as request ed. Cont home exercise, [...] plan. The above note was dictated using [employer] voice recognition software. It may have not been proofread in entirety. Minor errors in grammar may occur. CHIEF COMPLAINT Chief Complaint Patient presents with Establish Care Presents to establish care. Former patient of Natalee BUCIO & Katharine BUCIO in [place]. Other Possible stroke January 2015. Is now [...] auditory, at 36. 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 She is now very well controlled on Saphris, Depakote, and Paxi l. She is followed by [facility] in [place]. She has DM2 that is well controlled [...] DO; Location: [facility] MAIN OR SOCIAL HISTORY History [...] mg by mouth Daily. Cholecalciferol (VITAMIN D-3) 12502 units CAPS Oral Take 50,000 Units by [...] Oral Take 10 mg by mouth nightly. [place]-3 Fatty Acids (FISH OIL CONCENTRATE) 1000 MG [...] [address] | | | | | | [place] [address] | | | | | | [phone] | | | | | | | | +--------+ + + + + | 08/28/ | Office | Cardiology | Dora De La Torre | | | 2019 | Visit | | [address] | | | | | | [address] | | | | | | [place] [address] | | | | | | [phone] | | | | | | | [...] | | | | | | controlled ([facility]) | | | | | | Obesity, Class III, | | | | | | BMI 40-49.9 (morbid | | | | | | obesity) ([facility]) | | + + +--------+ [...] [facility]) | | + + +--------+ [...] | | | | mmol/L | [facility] | | | | [...] | [facility] | | | [place] | RATE,ESTIMATED | | MEDICAL | | | | mL/min/1.70v0Mpjo than | | CENTER - | | [...] [address] | [place] | [phone] | | [facility] | | [address] | | | - LABORATORY | | [...]
--- OUTSIDE RECORDS SUMMARY | ~2020-05-23 | XMS | Encounter Summary ---
Demographics + + + | Address | [address] | | | [place] [address] | + + + | Home Phone [...] Author | [facility] | + + + | Organization | [facility] | + + + | Address | Unknown | + + + | Phone | Unavailable | + + + Support + + + + + | Name | Relationship | Address | Phone | + + + + + | Kelsy Bautista | E[address] | [address] | | | | | [place] | | | | | [address] | | + + + + + Care Team Providers + +------+ + | Care Associate Media Director Name | Role | Phone | [...] Clinic | | | | | | [facility], [address] | | | | | | [place], [place] | | | | | | [address] | | | | | | [phone] | | | +--------+ + + + [...] as of this encounter Progress Notes Interface, Surtass Analyst In - 12/11/2006 5:03 AM [facility] DATE: 07/03/97 INFECTIOUS DISEASE CLINIC: REFERRED [...]
--- OUTSIDE RECORDS SUMMARY | ~2020-05-23 | XMS | Encounter Summary ---
Demographics + + + | Address | [address] | | | [place] [address] | + + + | Home Phone [...] [place] | | | | | [address] | | + + + + + Care Team Providers + +------+ + | Care Acute Specialist Name | Role | Phone | [...] + + | 08/15/ | Documentati | [facility] | Katharine Moncada, | Other (urgent | | 2019 | on | CARDIOLOGY [place] | Technologist | report) | | | | [address] | | | | | | [place] | | | | | | [address] | | | | | | [phone] | | | +--------+ + + + [...] | | | | | [place] [address] | | | | | | [phone] | | | | | | | | +--------+ + + + + | 08/28/ | Office | Cardiology | Dora De La Torre | | | 2020 | Visit | | [address] | | | | | | [address] | | | | | | [place] [address] | | | | | | [phone] | | | | | | | | +--------+ + + + + documented as of this encounter Visit Diagnoses Not on filedocumented in this encounter"
--- OUTSIDE RECORDS SUMMARY | ~2020-05-23 | XMS | Encounter Summary ---
Demographics + + + | Address | [address] | | | [place] [address] | + + + | Home Phone [...] [place] | | | | | [address] | | + + + + + Care Team Providers + +------+ + | Care Communications Intern Name | Role | Phone | [...] + + | 06/28/ | Telephone | [facility] | Ashley Chávez | Other (Patient | | 2018 | | CARDIOLOGY [place] Abad, Chief Medical Director | called to cancel her | | | | [address] | | appointment) | | | | [place] | | | | | | [address] | | | | | | [phone] | | | +--------+ + + + [...] Miscellaneous Notes Telephone Encounter - Ashley Chávez, Chief Medical Director - 06/28/2019 2:12 PM PDTPatigutierrez t said that she already got the result for her ECHO, so she decided to cancel her FU with Dr Peterson. I asked patient if she wanted to reschedule for another time, and she said she wants to FU as needed. I went ahead and canceled her appointment. BRODY:NABILAMA. [facility] in this encounter Plan of [...] [address] | | | | | | [place] [address] | | | | | | [phone] | | | | | | | | +--------+ + + + + | 08/28/ | Office | Cardiology | Dora De La Torre | | | 2019 | Visit | | [address] | | | | | | [address] | | | | | | [place] [address] | | | | | | [phone] | | | | | | | | +--------+ + + + + documented as of this encounter Visit Diagnoses Not on filedocumented in this encounter"
--- OUTSIDE RECORDS SUMMARY | ~2020-05-23 | XMS | Encounter Summary ---
Demographics + + + | Address | [address] | | | [place] [address] | + + + | Home Phone [...] [place] | | | | | [address] | | + + + + + Care Team Providers + +------+ + | Care Cost Specialist Name | Role | Phone | [...] | | Required | | branch | [address] MA[address]TE[address] TE[address] | [address] | | | | | block | [address] | [place] | | | | | Paroxysmal | [place] [address] | SRI [address] | | | | | A-fib ([facility]) | [place], [place] | [address] | | | | | | [address] | [place], [place] | | | | | Schizoaffect | Phone: | [phone] Phone: | | | | | chris | [phone] | [phone] | | | | | disorder, | Fax: | Fax: | | | | | bipolar type | [phone] | [phone] | | | | | (HCC) | [...] + + | 04/24/ | Office | [facility] | Dora De La Torre | Left bundle branch | | 2020 | Visit | CARDIOLOGY [place] | [address] | block (Primary Dx); | | | | [address] | [address] | Paroxysmal A-fib | | | | [address] | [place] [address] | ([facility]); Mild | | | | [place], [place] | [phone] | hyperlipidemia; | | | | [address] | | Benign essential | | | | [phone] | | HTN; Poorly | | | | | | controlled type 2 | | | | | | diabetes mellitus | | | | | | ([facility]); Syncope, | | | | [...] | | | | | | type ([facility]); Rapid | | | | [...] have referred you to Dr. Osuna at [facility] , call [phone] for an appo intment next week as [...] patient of , who is her primary jackscrew man, and last seen by her on 08/2020. [...] also resol shelly with weight loss Her [id number] VASC score is 4 (stroke, HTN, gender) [...] She has previously seen Dr. Garland in [place], and different sleep provider in [facility] when lived over there. She previously had [...] After her syncopal episode she had notified [facility] cardiology, and Dr. Marquez, who [...] PCP, or get a referral to an radio script writer to get her blood sugars better controlled, [...] thirst or hunger. Psychiatric/Behavioral: Bipolar/Schizophrenia. Tx'd by [employer] Vaccines: Current on flu vaccine: 2019 Current on pneumonia vaccine:PPSV 23 05/29/2013 Habits/Social : Denies history of smoking. Denies EtOH use. Denies recreational or illici t drug use. Exercises sporadically. Lives in [place] . Outpatient Medications Prior to Visit Medication [...] chest discomfort, [facility] Resting EKG normal sinus rhythm, [...] is less well-controlled LABS Labs: 12/26/2018: ( [facility] ER)CMP: Sodium 139, potassium 4.2, chloride 99, BUN 10, creatinine 0. 7, BNP 28. CBC: WBC 7.8, hemoglobin 14.3, hematocrit 42.7, platelets 214 Labs: 09/28/2019:( [facility] ER) CBC: WBC 7.8, hemoglobin 14.9, hematocrit 43.8, platelets 221. C MP: Sodium 132, potassium 4.2, chloride 95, AST 76, ALT 76, alk phos 134 Labs: 10/11/2019:( [facility] ER) CBC: WBC 6.7, RBC 4.97, hemoglobin 15.2, hematocrit 44.7, platel ets 200. CMP: Glucose 385, BUN 7, creatinine 0.62, GFR 97, sodium 131, potassium 4.1, chlor kelby 95, albumin 4.3, total bilirubin 0.6, AST 75, ALT 73, alk phos 144. Thyroid: TSH 4.27 Labs: 10/12/2020:( [facility] ER) CBC: WBC 7, RBC 4.93, hemoglobin 14.7, hematocrit 44.1, platele ts 186 normal UA CMP: Glucose 381, BUN 6, creatinine 0.63, GFR 95, sodium 133, potassium 3.8 , chloride 97, albumin 4.3, total bili 0.6, AST 62, ALT 75, alk phos 145 thyroid: TSH 3.07 Labs: 10/20/2019:( [facility] ER) CBC: WBC 7.1, RBC 4.93, hemoglobin 15.1, hematocrit 45.2, platel ets 204. CMP: Glucose 540, BUN 8, creatinine 0.81, GFR 71, sodium 131, potassium 4.1, chlor kelby 95, albumin 4.2, total bili 0.5, AST 54, ALT 63, alk phos 123, negative screen for all d rugs except tricyclics. Thyroid: TSH 3.39. Labs: 04/20/2020: ([facility] ER). CMP: Sodium 130, potassium 4.1, [...] admission and overnight teleme try stay at [facility] for syncopal episode with extremely elevated glucose levels of 404, with hemoglobin A1c of 15.2. She has problems as detailed below. As discussed in HPI, she did not have any arrhythmias [facility], and her EKG performed the ER showed [...] report. I have referred her to the [facility] sleep disorders clinic for further evaluation and [...] notes for continuity of care purp kavon [facility] RE[facility] ENGINE[facility] 04/25/2020 Laurie vivar in this encounter [...] [address] | | | | | | [place] [address] | | | | | | [phone] | | | | | | | | +--------+ + + + + | 08/28/ | Office | Cardiology | Dora De La Torre | | 2019 | Visit | | [address] | | | | | | [address] | | | | | | [place] [address] | | | | | | [phone] | | | | | | | [...] | | | | | | A-fib ([facility]) | | | | | | Schizoaffective | | | | | | disorder, bipolar | | | | | | type ([facility]) Rapid | | | | [...]
--- OUTSIDE RECORDS SUMMARY | ~2020-05-23 | XMS | Encounter Summary ---
Demographics + + + | Address | [address] | | | [place] [address] | + + + | Home Phone [...] [place], [place] | | | | | [address] | | + + + + + Care Team Providers + +------+ + | Care Nitrocellulose Operator Name | Role | Phone | + +------+ + PCP | Unavailable | + +------+ + Encounter Details +--------+ + + + + | Date | Type | Department | Care Team | Description | +--------+ + + + + | 02/02/ | Hospital | [facility] | | | | 1997 | Encounter | MED CTR EMERGENCY | | | | | | [address] | | | | | | [place] | | | | | | [address] | | | | | | [phone] | | | +--------+ + + + [...] | | | | | [place] [address] | | | | | | [phone] | | | | | | | | +--------+ + + + + | 08/28/ | Office | Cardiology | Dora De La Torre | | | 2020 | Visit | | [address] | | | | | | [address] | | | | | | [place] [address] | | | | | | [phone] | | | | | | | | +--------+ + + + + documented as of this encounter Visit Diagnoses Not on filedocumented in this encounter"
--- OUTSIDE RECORDS SUMMARY | ~2020-05-23 | XMS | Encounter Summary ---
Demographics + + + | Address | [address] | | | [place] [address] | + + + | Home Phone [...] [place] | | | | | [address] | | + + + + + Care Team Providers + +------+ + | Care Cyber Threat Analyst Name | Role | Phone | [...] [address] | | | | | [address] [place], [place] | [place], [place] | | | | | [address] | [address] | | | | | [phone] | | | +--------+ + + + [...] | | | | | [place] [address] | | | | | | [phone] | | | | | | | | +--------+ + + + + | 08/28/ | Office | Cardiology | Dora De La Torre | | | 2019 | Visit | | [address] | | | | | | [address] | | | | | | [place] [address] | | | | | | [phone] | | | | | | | | +--------+ + + + + documented as of this encounter Visit Diagnoses Not on filedocumented in this encounter"
--- OUTSIDE RECORDS SUMMARY | ~2020-05-23 | XMS | Encounter Summary ---
Demographics + + + | Address | [address] | | | [place] [address] | + + + | Home Phone [...] [place] | | | | | [address] | | + + + + + Care Team Providers + +------+ + | Care Vest Busheler Name | Role | Phone | + [...] + | 03/07/ | Telephone | [facility] | Katharine Cardona PA-C | Results | | 2014 | | MEDICINE [place] | [address] [facility] | | | | | [address] | [place] [address] | | | | | [place], [place] | [phone] | | | | | [address] | | | | | | [phone] | | | +--------+ + + + [...] Miscellaneous Notes Telephone Encounter - Adrianne Horton, Metal Sprayer - 03/11/2015 3:41 PM PDTCalled Pat and delivered her results. Patient verbalized good understanding. elephone Encounter - Adrianne Horton , Metal Sprayer - 03/11/2015 8:40 AM PDTCall placed to [...] CANTU | | | | | | [place] [address] | | | | | | [phone] | | | | | | | | +--------+ + + + + | 08/28/ | Office | Cardiology | Dora De La Torre | | | 2019 | Visit | | [address] | | | | | | [address] | | | | | | [place] [address] | | | | | | [phone] | | | | | | | | +--------+ + + + + documented as of this encounter Visit Diagnoses Not on filedocumented in this encounter"
--- OUTSIDE RECORDS SUMMARY | ~2020-05-23 | XMS | Encounter Summary ---
Demographics + + + | Address | [address] | | | [place] [address] | + + + | Home Phone [...] [place] | | | | | [address] | | + + + + + Care Team Providers + +------+ + | Care Firer Portable Boiler Name | Role | Phone | [...] + + | 10/25/ | Telephone | [facility] | Ashley Chávez | Other (Patient to | | 2019 | | CARDIOLOGY [place], Continuous Miner Operator Helper | stay on the same | | | | [address] | | dose. ) | | | | [place] | | | | | | [address] | | | | | | [phone] | | | +--------+ + + + [...] Miscellaneous Notes Telephone Encounter - Ashley Chávez Continuous Miner Operator Helper - 10/25/2019 8:44 AM PSTCall m cierra [...] CLAYTONW:IRINA-AAMA. el ephone Encounter - Ashley Chávez Continuous Miner Operator Helper - 10/25/2019 8:40 AM PST----- Mess age from Desiree Peterson DO sent at 10/24/2019 8:42 PM PST ----- Regarding: RE: Patient's Metoprolol. We can stay on the same dose of metoprolol for now. Thanks ----- Message ----- From: Ashley Chávez Continuous Miner Operator Helper Sent: 10/23/2019 10:52 AM PST To: Desiree [...] | | | | | [place] [address] | | | | | | [phone] | | | | | | | | +--------+ + + + + | 08/28/ | Office | Cardiology | Dora De La Torre | | | 2020 | Visit | | [address] | | | | | | [address] | | | | | | [place] [address] | | | | | | [phone] | | | | | | | | +--------+ + + + + documented as of this encounter Visit Diagnoses Not on filedocumented in this encounter"
--- OUTSIDE RECORDS SUMMARY | ~2020-05-23 | XMS | Encounter Summary ---
Demographics + + + | Address | [address] | | | [place] [address] | + + + | Home Phone [...] [place] | | | | | [address] | | + + + + + Care Team Providers + +------+ + | Care Websphere Commerce Consultant Name | Role | Phone | [...] updated | | | | | [address], | address | | | | | [address] [place] | | | | | | [place] [address] | | | | | | [phone] | | | +--------+ + + + [...] stroke work up she had done at [facility] was quite thorough and she did not [...] CANTU | | | | | | [place] [address] | | | | | | [phone] | | | | | | | | +--------+ + + + + | 08/28/ | Office | Cardiology | Dora De La Torre | | | 2019 | Visit | | [address] | | | | | | [address] | | | | | | [place] [address] | | | | | | [phone] | | | | | | | | +--------+ + + + + documented as of this encounter Visit Diagnoses Not on filedocumented in this encounter"
--- OUTSIDE RECORDS SUMMARY | ~2020-05-23 | XMS | Encounter Summary ---
Demographics + + + | Address | [address] | | | [place] [address] | + + + | Home Phone [...] [place] | | | | | [address] | | + + + + + Care Team Providers + +------+ + | Care Safety Security Officer Name | Role | Phone [...] + | 12/03/ | Refill | [facility] | Frandy Teresa, | Medication Refill | | 2014 | | [address]ERY [address] | DO [address] | | | | | [address] [facility] [address] | [address] [place], [place] | | | | | [place], [place] | [id number] | | | | | [address] | | | | | | [phone] | | | +--------+--------+ + + + [...] office and the number we have in [facility] is not correct. Art Andersen NP Chart notes faxed to [phone] along with medication list. Sent request to update contac t information in [facility] To Kathy @ [facility] Support Team documented in this [...] CANTU | | | | | | [place] [address] | | | | | | [phone] | | | | | | | | +--------+ + + + + | 08/28/ | Office | Cardiology | Dora De La Torre | | | 2019 | Visit | | [address] | | | | | | [address] | | | | | | [place] [address] | | | | | | [phone] | | | | | | | | +--------+ + + + + documented as of this encounter Visit Diagnoses Not on filedocumented in this encounter"
--- OUTSIDE RECORDS SUMMARY | ~2020-05-23 | XMS | Encounter Summary ---
Demographics + + + | Address | [address] | | | [place] [address] | + + + | Home Phone [...] [place], [place] | | | | | [address] | | + + + + + Care Team Providers + +------+ + | Care Planting Material Carrier Name | Role | Phone | + +------+ + PCP | Unavailable | + +------+ + Encounter Details +--------+ + + + + | Date | Type | Department | Care Team | Description | +--------+ + + + + | 04/01/ | Hospital | [facility] | | | | 1998 | Encounter | MED CTR XRAY [address] | | | | | | [address] [place] | | | | | | [place] [address] | | | | | | [phone] | | | +--------+ + + + [...] | | | | | [place] [address] | | | | | | [phone] | | | | | | | | +--------+ + + + + | 08/28/ | Office | Cardiology | Dora De La Torre | | | 2019 | Visit | | [address] | | | | | | [address] | | | | | | [place] [address] | | | | | | [phone] | | | | | | | | +--------+ + + + + documented as of this encounter Visit Diagnoses Not on filedocumented in this encounter"
--- OUTSIDE RECORDS SUMMARY | ~2020-05-23 | XMS | Clinical Summary ---
Demographics + + + | Address | [address] | | | [place] [address] | + + + | Home Phone [...] [place] | | | | | [address] | | + + + + + Care Team Providers + +------+ + | Care Colorman Name | Role | Phone | + +------+ + PCP | Unavailable | + +------+ + Source Comments EDWARD is fully live on both [facility] Ambulatory and [facility] InPatient.[facility] Allergies Not [...] | MEDICA | xxxxxxxxxx | 02/22/20 | [phone] | [address] | Medica | | | RE A & | | 15-Pre | 1 | [address] | re | | | B | | sent | | [place] | | | | | | | | [address] | | + +--------+ +--------+ + +--------+ + +--------+ +--------+ + + | Guarantor Name | Accoun | Relation to | Date | Phone | Billing Address | | | t Type | Patient | of | | | | | | | | | | + +--------+ +--------+ + + | CINDY ARNDT | Person | Self | [birth year] | [address] | | al/Fam | | 1955 | [phone] | [address] [place] | | | [place]onte | | | 5 (Home) | [address] | + +--------+ +--------+ + +"
--- OUTSIDE RECORDS SUMMARY | ~2020-05-23 | XMS | Encounter Summary ---
Demographics + + + | Address | [address] | | | [place] [address] | + + + | Home Phone [...] [place] | | | | | [address] | | + + + + + Care Team Providers + +------+ + | Care Interactive Designer Name | Role | Phone | [...] | | | spondylolist | | [address] | | | | | [place]sis | | [place], | | | | | Spinal | | [place] [address] | | | | | stenosis, | | Phone: | | | | | lumbar | | [phone] | | | | | region, | | Fax: | | | | | without | | [phone] | | | | | neurogenic | [...] | | | | | [address] | [address] [place] | | | | | [place] | [phone] | | | | | [address] | | | | | | [phone] | | | +--------+ + + + [...] Easy mask AW. DL times one with [facility] 3 easy view | | | 2 | Intubation | | | | 2 | | | | | 6 | | | +----+---+ + + | | 1 | AN Bite | | | | 2 | Block | | | | 2 | | | | | 7 | | | +----+---+ + + | | 1 | [place] | | | | 2 | 43-degrees | | | | 3 | | | | | 1 | | | +----+---+ + + | | 1 | [place] off | | | | 4 | [...] EVALUATION Cindy Arndt 58 y.o. female 1955 [id number] Procedure: Procedure(s):MIS L5-S1 TRANSFORAMINAL LUMBAR INTERBODY FUSION [...] by Zen Mccord MD 07/02/2014 14:55 [facility] nesthesia Preproc edure Evaluation - Zen Mccord MD - 07/02/2014 8:36 AM PDTFormatting of this note m ight be different from the original. ANESTHESIA PREANESTHESIA EVALUATION Cindy Arndt 58 y.o. female 1955 [id number] Scheduled procedure LAMINECTOMY PLIF/TLIF INSTRUMENTATION [184] - MIS L5-S1 TRANSFORAMINAL LUMBAR INTERBODY FUSION Medical history, anesthesia, medications, allergy histories reviewed. ECG reviewed. Labs reviewed. ROS / Med History Ane (+) PONV. NPO status verified. CV (+) hypertension.(-) CAD, past MT, CHF, congenital heart disease, pulmonary hypertension, p [...] CANTU | | | | | | [place] [address] | | | | | | [phone] | | | | | | | | +--------+ + + + + | 08/28/ | Office | Cardiology | Dora De La Torre | | | 2019 | Visit | | [address] | | | | | | [address] | | | | | | [place] [address] | | | | | | [phone] | | | | | | | [...]
--- OUTSIDE RECORDS SUMMARY | ~2020-05-23 | XMS | Encounter Summary ---
Demographics + + + | Address | [address] | | | [place] [address] | + + + | Home Phone [...] [place] | | | | | [address] | | + + + + + Care Team Providers + +------+ + | Care Coal Equipment Operator Name | Role | Phone [...] + + | 07/19/ | Office | [facility] | Desiree Peterson DO | Syncope, unspecified | | 2019 | Visit | CARDIOLOGY [place] | [address] | syncope type | | | | [address] | [place], [place] | (Primary Dx); | | | | [address] | [address] | Essential | | | | [place] | | hypertension; | | | | [address] | | Irregular heartbeat | | | | [phone] | | | +--------+---------+ + + + [...] Peterson DO - 07/19/2019 10:40 AM PDT [facility] Cardiology Cardiology Follow Up Note [...] rtake in exercise. She recently got a Trello and has been walking him more regularly. [...] by mouth daily. Blood Glucose Monitoring Suppl ([employer] VERIO FLEX SYSTEM) w/Device KIT by Does not ap ply route. budesonide-formoterol (SYMBICORT) 160-4.5 MCG/ACT inhaler Inhale 2 puffs into the lungs 2 (two) times daily. Calcium Carbonate Antacid 1000 MG tablet Take 1,000 mg by mouth 3 (three) times daily. Cholecalciferol (VITAMIN D3) 74799 units CAPS Take by mouth once a [...] | | | | | [place] [address] | | | | | | [phone] | | | | | | | | +--------+ + + + + | 08/28/ | Office | Cardiology | Dora De La Torre | | | 2020 | Visit | | [address] | | | | | | [address] | | | | | | [place] [address] | | | | | | [phone] | | | | | | | [...]
--- OUTSIDE RECORDS SUMMARY | ~2020-05-23 | XMS | Encounter Summary ---
Demographics + + + | Address | [address] | | | [place] [address] | + + + | Home Phone [...] [place] | | | | | [address] | | + + + + + Care Team Providers + +------+ + | Care Global Sourcing Manager Name | Role | Phone | [...] + | 05/13/ | Telephone | [facility] | Frandy Teresa, | Other | | 2013 | | NEUR[address]UR[address] | DO [address] | | | | | [address] | [address] [place], [place] | | | | | [place], [place] | [id number] | | | | | [address] | | | | | | [phone] | | | +--------+ + + + [...] [address] | | | | | | [place] [address] | | | | | | [phone] | | | | | | | | +--------+ + + + + | 08/28/ | Office | Cardiology | Dora De La Torre | | | 2019 | Visit | | [address] | | | | | | [address] | | | | | | [place] [address] | | | | | | [phone] | | | | | | | | +--------+ + + + + documented as of this encounter Visit Diagnoses Not on filedocumented in this encounter"
--- OUTSIDE RECORDS SUMMARY | ~2020-05-23 | XMS | Encounter Summary ---
Demographics + + + | Address | [address] | | | [place] [address] | + + + | Home Phone [...] [place] | | | | | [address] | | + + + + + Care Team Providers + +------+ + | Care Compression Molding Machine Operator Name | Role | [...] [address] | [address] [place], [place] | fusion | | | | [place], [place] | [address] | | | | | [address] | | | | | | [phone] | | | +--------+ + + + [...] | | | | | | [place] [address] | | | | | | [phone] | | | | | | | | +--------+ + + + + | 08/28/ | Office | Cardiology | Dora De La Torre | | | 2019 | Visit | | [address] | | | | | | [address] | | | | | | [place] [address] | | | | | | [phone] | | | | | | | | +--------+ + + + + documented as of this encounter Visit Diagnoses + + | Diagnosis | + + | Lumbago - Primary | + + | S/P lumbar fusion Arthrodesis status | + + documented in this encounter"
--- OUTSIDE RECORDS SUMMARY | ~2020-05-23 | XMS | Encounter Summary ---
Demographics + + + | Address | [address] | | | [place] [address] | + + + | Home Phone [...] [place] | | | | | [address] | | + + + + + Care Team Providers + +------+ + | Care Ammunition Specialist Name | Role | Phone | [...] + + | 10/23/ | Telephone | [facility] | Ashley Chávez | Other (Patient | | 2019 | | CARDIOLOGY [place] | [place], [place] | called about | | | | [address] | | metoprolol. ) | | | | [place], [place] | | | | | | [address] | | | | | | [phone] | | | +--------+ + + + [...] Miscellaneous Notes Telephone Encounter - Ashley Chávez, River Pilot - 10/23/2019 10:49 [facility] [...] her back when I have her recommendations. JDW:MUSEUM SERVICE SCHEDULER-AAMA. [facility] umented in this encounter Plan of [...] [address]ANTU | | | | | | [place] [address] | | | | | | [phone] | | | | | | | | +--------+ + + + + | 08/28/ | Office | Cardiology | StefanielarryDora | | 2019 | Visit | | [address] | | | | | | [address] | | | | | | [place] [address] | | | | | | [phone] | | | | | | | | +--------+ + + + + documented as of this encounter Visit Diagnoses Not on filedocumented in this encounter"
--- OUTSIDE RECORDS SUMMARY | ~2020-05-23 | XMS | Encounter Summary ---
Demographics + + + | Address | [address] | | | [place] [address] | + + + | Home Phone [...] [place] | | | | | [address] | | + + + + + Care Team Providers + +------+ + | Care Nursing Unit Manager Name | Role | Phone [...] + + | 08/21/ | Documentati | [facility] | Katharine Moncada, | Other (urgent | | 2019 | on | CARDIOLOGY [place] | Technologist | report) | | | | [address] | | | | | | [place] | | | | | | [address] | | | | | | [phone] | | | +--------+ + + + [...] | | | | | [place] [address] | | | | | | [phone] | | | | | | | | +--------+ + + + + | 08/28/ | Office | Cardiology | Dora De La Torre | | | 2020 | Visit | | [address] | | | | | | [address] | | | | | | [place] [address] | | | | | | [phone] | | | | | | | | +--------+ + + + + documented as of this encounter Visit Diagnoses Not on filedocumented in this encounter"
--- OUTSIDE RECORDS SUMMARY | ~2020-05-23 | XMS | Encounter Summary ---
Demographics + + + | Address | [address] | | | [place] [address] | + + + | Home Phone [...] [place], [place] | | | | | [address] | | + + + + + Care Team Providers + +------+ + | Care Press Pipe Inspector Name | Role | Phone | + +------+ + PCP | Unavailable | + +------+ + Encounter Details +--------+ + + + + | Date | Type | Department | Care Team | Description | +--------+ + + + + | 12/09/ | Hospital | [facility] | Serafin Bautista | | | 2011 | Encounter | MED CTR XRAY [address] | [address], [address] | | | | | [place] | [place] | | | | | [place] [address] | [address] | | | | | [phone] | | | +--------+ + + + [...] | | | | | [place] [address] | | | | | | [phone] | | | | | | | | +--------+ + + + + | 08/28/ | Office | Cardiology | Dora De La Torre | | | 2019 | Visit | | [address] | | | | | | [address] | | | | | | [place] [address] | | | | | | [phone] | | | | | | | [...] [facility] Diagnostic Imaging Department | [facility] | | [address] | [facility] | | PROCEDURE NOTE EPIDURAL | DIAG [...] Juan, Rad Conversion - 11/30/2013 4:45 PM [facility] | | Diagnostic Imaging Department | | [address] | | | | | | | [...]
--- OUTSIDE RECORDS SUMMARY | ~2020-05-23 | XMS | Encounter Summary ---
Demographics + + + | Address | [address] | | | [place] [address] | + + + | Home Phone [...] [place] | | | | | [address] | | + + + + + Care Team Providers + +------+ + | Care Coremaker Floor Name | Role | Phone | + [...] | 08/20/ | Documentati | [facility] | Katharine Moncada, | Other (urgent | | 2019 | on | CARDIOLOGY [place] | Technologist | report) | | | | [address] | | | | | | [place] | | | | | | [address] | | | | | | [phone] | | | +--------+ + + + [...] | | | | | [place] [address] | | | | | | [phone] | | | | | | | | +--------+ + + + + | 08/28/ | Office | Cardiology | Dora De La Torre | | | 2020 | Visit | | [address] | | | | | | [address] | | | | | | [place] [address] | | | | | | [phone] | | | | | | | | +--------+ + + + + documented as of this encounter Visit Diagnoses Not on filedocumented in this encounter"
--- OUTSIDE RECORDS SUMMARY | ~2020-05-23 | XMS | Encounter Summary ---
Demographics + + + | Address | [address] | | | [place] [address] | + + + | Home Phone [...] [place] | | | | | [address] | | + + + + + Care Team Providers + +------+ + | Care Parole Officer Name | Role | Phone | + +------+ + | Hari Samson DO | PCP | | + +------+ + Encounter Details +--------+ + + + + | Date | Type | Department | Care Team | Description | +--------+ + + + + | 06/12/ | Hospital | [facility] | Frandy Teresa, | No Show | | 2014 | Encounter | MED CTR | DO [address] | | | | | ELECTRODIAGNOSTICS | [address] [place], [place] | | | | | [address] [place] | [address] | | | | | [place] [address] | | | | | | [phone] | | | +--------+ + + + [...] | | | | | [place] [address] | | | | | | [phone] | | | | | | | | +--------+ + + + + | 08/28/ | Office | Cardiology | Dora De La Torre | | | 2020 | Visit | | [address] | | | | | | [address] | | | | | | [place] [address] | | | | | | [phone] | | | | | | | | +--------+ + + + + documented as of this encounter Visit Diagnoses Not on filedocumented in this encounter"
--- OUTSIDE RECORDS SUMMARY | ~2020-05-23 | XMS | Encounter Summary ---
Demographics + + + | Address | [address] | | | [place] [address] | + + + | Home Phone [...] [place] | | | | | [address] | | + + + + + Care Team Providers + +------+ + | Care Spray Gun Sizer Name | Role | Phone | [...] | 08/05/ | Telephone | [facility] | Frandy Teresa, | Other | | 2013 | | NEUROSURGERY [address] | DO [address] | | | | | [address] | [address] [place], [place] | | | | | [place], [place] | [id number] | | | | | [address] | | | | | | [phone] | | | +--------+ + + + [...] [address] | | | | | | [place] [address] | | | | | | [phone] | | | | | | | | +--------+ + + + + | 08/28/ | Office | Cardiology | Dora De La Torre | | | 2019 | Visit | | [address] | | | | | | [address] | | | | | | [place] [address] | | | | | | [phone] | | | | | | | | +--------+ + + + + documented as of this encounter Visit Diagnoses Not on filedocumented in this encounter"
--- OUTSIDE RECORDS SUMMARY | ~2020-05-23 | XMS | Encounter Summary ---
Demographics + + + | Address | [address] | | | [place] [address] | + + + | Home Phone [...] [place] | | | | | [address] | | + + + + + Care Team Providers + +------+ + | Care Radiotelegraph Operator Servicer Name | Role | Phone | [...] + | 07/08/ | Telephone | [facility] | Frandy Teresa, | Other (post op call | | 2013 | | NEUROSUR[address]ERY [address] | DO [address] | ) | | | | [address] [facility] [address] | [address] [place], [place] | | | | | [place], [place] | [id number] | | | | | [address] | | | | | | [phone] | | | +--------+ + + + [...] Cert MA - 07/08/2014 11:04 AM [facility] SHAYNE ARAGON [...] [address] | | | | | | [place] [address] | | | | | | [phone] | | | | | | | | +--------+ + + + + | 08/28/ | Office | Cardiology | Dora De La Torre | | | 2020 | Visit | | [address] | | | | | | [address] | | | | | | [place] [address] | | | | | | [phone] | | | | | | | | +--------+ + + + + documented as of this encounter Visit Diagnoses Not on filedocumented in this encounter"
--- OUTSIDE RECORDS SUMMARY | ~2020-05-23 | XMS | Encounter Summary ---
Demographics + + + | Address | [address] | | | [place] [address] | + + + | Home Phone [...] [place] | | | | | [address] | | + + + + + Care Team Providers + +------+ + | Care Transportation Security Screener Name | Role | Phone | + [...] | SLEEP DISORDER [address] | [address] | | | | | [address] [place] | [place] | | | | | [place] [address] | [address] | | | | | [phone] | | | +--------+ + + + [...] PDTPat was last [facility]. He did not cancel [...] PA-C eleph one Encounter - Gail Cadet, Rigger Chief - 07/15/2016 8:37 AM PDTCalled to resched ule patient's no show appointment unable to contact all numbers are disconnected. Electronic ally signed by Gail Cadet Rigger Chief at 07/15/2016 8:37 AM PDTdocumented in this [...] [address] | | | | | | [place] [address] | | | | | | [phone] | | | | | | | | +--------+ + + + + | 08/28/ | Office | Cardiology | Dora De La Torre | | | 2019 | Visit | | [address] | | | | | | [address] | | | | | | [place] [address] | | | | | | [phone] | | | | | | | | +--------+ + + + + documented as of this encounter Visit Diagnoses Not on filedocumented in this encounter"
--- OUTSIDE RECORDS SUMMARY | ~2020-05-23 | XMS | Encounter Summary ---
Demographics + + + | Address | [address] | | | [place] [address] | + + + | Home Phone [...] [place] | | | | | [address] | | + + + + + Care Team Providers + +------+ + | Care Community Engagement Representative Name | Role | Phone | [...] + | 08/24/ | Documentati | [facility] | Katharine Moncada, | Other (urgent | | 2019 | on | CARDIOLOGY [place] | Technologist | report) | | | | [address] | | | | | | [place] | | | | | | [address] | | | | | | [phone] | | | +--------+ + + + [...] | | | | | [place] [address] | | | | | | [phone] | | | | | | | | +--------+ + + + + | 08/28/ | Office | Cardiology | Dora De La Torre | | | 2020 | Visit | | [address] | | | | | | [address] | | | | | | [place] [address] | | | | | | [phone] | | | | | | | | +--------+ + + + + documented as of this encounter Visit Diagnoses Not on filedocumented in this encounter"
--- OUTSIDE RECORDS SUMMARY | ~2020-05-23 | XMS | Encounter Summary ---
Demographics + + + | Address | [address] | | | [place] [address] | + + + | Home Phone [...] [place] | | | | | [address] | | + + + + + Care Team Providers + +------+ + | Care Surgical Technology Instructor Name | Role | Phone [...] | Telephone | [facility] [place] | [facility], | [facility] | | 2012 | | GASTROENTEROLOGY | [place]O Thomas [address] | | | | | [address] | [address] | | | | | [address] [place], [place] | [place], [place] | | | | | [address] | [address] | | | | | [phone] | | | +--------+ + + + [...] [address] | | | | | | [place] [address] | | | | | | [phone] | | | | | | | | +--------+ + + + + | 08/28/ | Office | Cardiology | Dora De La Torre | | | 2019 | Visit | | [address] | | | | | | [address] | | | | | | [place] [address] | | | | | | [phone] | | | | | | | | +--------+ + + + + documented as of this encounter Visit Diagnoses Not on filedocumented in this encounter"
--- OUTSIDE RECORDS SUMMARY | ~2020-05-23 | XMS | Encounter Summary ---
Demographics + + + | Address | [address] | | | [place] [address] | + + + | Home Phone [...] [place] | | | | | [address] | | + + + + + Care Team Providers + +------+ + | Care Cyber Security Analyst Name | Role | Phone [...] | SLEEP DISORDER 401 | [address] | | | | | [address] [place] | [place], [place] | | | | | [place] [address] | [address] | | | | | [phone] | | | +--------+ + + + [...] [address] | | | | | | [place] [address] | | | | | | [phone] | | | | | | | | +--------+ + + + + | 08/28/ | Office | Cardiology | Dora De La Torre | | | 2019 | Visit | | [address] | | | | | | [address] | | | | | | [place] [address] | | | | | | [phone] | | | | | | | | +--------+ + + + + documented as of this encounter Visit Diagnoses Not on filedocumented in this encounter"
--- OUTSIDE RECORDS SUMMARY | ~2020-05-23 | XMS | Encounter Summary ---
Demographics + + + | Address | [address] | | | [place] [address] | + + + | Home Phone [...] [place] | | | | | [address] | | + + + + + Care Team Providers + +------+ + | Care Eligibility Counselor Name | Role | Phone | [...] [place] | | | | | | [address] | | | | | | [phone] | | | +--------+ + + + [...] | | | | | [place] [address] | | | | | | [phone] | | | | | | | | +--------+ + + + + | 08/28/ | Office | Cardiology | Dora De La Torre | | | 2020 | Visit | | [address] | | | | | | [address] | | | | | | [place] [address] | | | | | | [phone] | | | | | | | | +--------+ + + + + documented as of this encounter Visit Diagnoses Not on filedocumented in this encounter"
--- OUTSIDE RECORDS SUMMARY | ~2020-05-23 | XMS | Encounter Summary ---
Demographics + + + | Address | [address] | | | [place] [address] | + + + | Home Phone [...] [place] | | | | | [address] | | + + + + + Care Team Providers + +------+ + | Care Stogy Roller Name | Role | Phone | [...] + + | 02/06/ | Telephone | [facility] | Roxannmiguel ángelDora | Patient Concerns | | 2020 | | CARDIOLOGY [place] | [address] | | | | | [address] | [address] | | | | | [address] | [place] [address] | | | | | [place] | [phone] | | | | | [address] | | | | | | [phone] | | | +--------+ + + + [...] [address] | | | | | | [place] [address] | | | | | | [phone] | | | | | | | | +--------+ + + + + | 08/28/ | Office | Cardiology | Dora De La Torre | | | 2019 | Visit | | [address] | | | | | | [address] | | | | | | [place] [address] | | | | | | [phone] | | | | | | | | +--------+ + + + + documented as of this encounter Visit Diagnoses Not on filedocumented in this encounter"
--- OUTSIDE RECORDS SUMMARY | ~2020-05-23 | XMS | Encounter Summary ---
Demographics + + + | Address | [address] | | | [place] [address] | + + + | Home Phone [...] [place] | | | | | [address] | | + + + + + Care Team Providers + +------+ + | Care Tank Farm Attendant Name | Role | Phone | [...] + + | 08/08/ | Telephone | [facility] | Ashley Chávez | Other (Questions | | 2019 | | CARDIOLOGY [place], Igniter Assembler | about coverage. ) | | | | [address] | | | | | | [place] | | | | | | [address] | | | | | | [phone] | | | +--------+ + + + [...] Miscellaneous Notes Telephone Encounter - Ashley Chávez, Igniter Assembler - 08/08/2019 10:58 AM Seferino foster called and wanted to know if her monitor needed to be AUTHORIZED. I asked Danelle and she said that because she had medicare part A and B, it does not need kayode or auth. I told this information to the patient, patient stated understanding. JKASSIE:ROASTER HELPER-AAMA. [facility] umphilipp in this encounter Plan of Treatment [...] [address] | | | | | | [place] [address] | | | | | | [phone] | | | | | | | | +--------+ + + + + | 08/28/ | Office | Cardiology | Dora De La Torre | | | 2019 | Visit | | [address] | | | | | | [address] | | | | | | [place] [address] | | | | | | [phone] | | | | | | | | +--------+ + + + + documented as of this encounter Visit Diagnoses Not on filedocumented in this encounter"
--- OUTSIDE RECORDS SUMMARY | ~2020-05-23 | XMS | Encounter Summary ---
Demographics + + + | Address | [address] | | | [place] [address] | + + + | Home Phone [...] [place] | | | | | [address] | | + + + + + Care Team Providers + +------+ + | Care Ecg Technician Name | Role | Phone | [...] | | | spondylolist | | [address] | | | | | hesis | | [place], | | | | | Spinal | | [place] [address] | | | | | stenosis, | | Phone: | | | | | lumbar | | [phone] | | | | | region, | | Fax: | | | | | without | | [phone] | | | | | neurogenic | [...] | | | | | | | [place] AR[place] | | | | | | [...] | | | | | | ION [place] | | | | | | | [...] | | | | | | SEG [place] | | | | | | | [...] + + | 07/02/ | Hospital | [facility] | Frandy Teresa, | Degenerative disc | | 2013 - | Encounter | MED CTR SURGICAL | DO [address] | disease, lumbar | | | | [address] | [place] [place] [address] | (Primary Dx); | | 07/05/ | | [place] [address] | [id number] | Diabetes mellitus | | 2013 | | [phone] | | ([facility]); Disturbance | | | | | | [...] might be different fro m the original. [facility] DISCHARGE SUMMARY PATIENT NAME: Cindy [...] Take 15 mg by mouth nightl y. Westport-3 Fatty Acids (FISH OIL CONCENTRATE) 1000 MG [...] + + + +---------+ + + | Westport-3 Fatty | Take 1,000 mg by | [...] Lynn PA-C - 07/04/2014 7:43 AM PDT [facility] PROGRESS NOTE Pt. Name/Age/: Cindy Arndt 58 y.o. 1955 Med. Record Number: [id number] Date of admission: 07/02/2014 Subjective: The patient [...] home medications. D/C plan: Home tomorrow with [facility]. D/c mari drain and riley cath today. D/c director of enterprise strategy. Patient Active Problem List Diagnosis LUMBAR DISC [...] signed by: Chris Nicole, 07/04/2014 7:45 [facility] Chris Lynn PA-C - 07/03/2014 7:13 AM PDT . [facility] PROGRESS NOTE Pt. Name/Age/: Cindy Arndt 58 y.o. 1955 Med. Record Number: [id number] Date of admission: 07/02/2014 Subjective: The patient [...] Electronically signed by: Chris Nicole, 07/03/2014 7:13 [facility] on Smith, KRIS - 07/03/2014 [...] signed by: Frandy Teresa DO, 07/02/2014 11:15 [facility] signed by Frandy Teresa DO at 06/2014 11:15 AM PDTFrandy Teresa DO - 07/02/2014 11:15 AM [id number] [facility] [address] [place], [place] [id number] FAX: NEUROSURGERY HISTORY AND PHYSICAL EXAMINATION CHIEF [...] Take 15 mg by mouth earnestine eldridge. Westport-3 Fatty Acids (FISH OIL CONCENTRATE) 1000 MG [...] no apparent deficits with short or termite exterminator memory. CRANIAL NERVES: II: Acuity is [...] Intrinsics 5 5 Ulnar Intrinsics 5 5 Day Haul Youth Supervisor Strength 5 5 Hip Flexion 5 [...] documented in this en counter Procedure Notes [facility] SCAN [facility] - 07/12/2014 12:00 AM PDT 14 1:45 PM [facility] - 07/04/2014 12:00 AM PDT [facility] - 07/02/2014 12:00 AM PDT documented in this encounter Miscellaneous Notes Plan of Care - ONBASE SCAN [facility] - 07/12/2014 12:00 AM PDT iscellaneous - [facility] SCAN [facility] - 07/12/2014 12:00 AM PDTElec tronically signed by Mariah Schulte at 07/12/2014 1:45 PM PDTMiscellaneous - [facility] SCAN [facility] - 07/12/2014 12:00 AM PDT i scellaneous - BRUCE SCAN [facility] - 07/12/2014 12:00 AM PDT [...] and I will be going to a USP as I have 16 steps to my [...] TBD) Equipment Recommendations: tub bench;hand held shower head;rug clipper;comfort height toilet ( pt. has all necessary [...] might be different fro m the original. RESIDENTIAL FACILITY TRANSFER ORDERS Patient Name: Cindy Arndt Patient : 1955 Gender: female Date of Admission: 07/02/2014 Date of Discharge: 07/05/2014 Admitting Provider: Frandy Teresa DO Discharging Provider: Chris Nicole PA-C Consultants: none PCP: Natalee Andersen [facility] transferring to: [facility] Provider after transfer: PCP and Dr. Frandy Teresa CODE STATUS: [x] Attempt CPR [] Do not resuscitate If patient is pulseless and not breathing, RN/PORT SURVEYOR may pronounce . Advanced Directives included: [] [...] for this patient. Diet: [] As tolerated HAIR SALON MANAGER may upgrade or downgrade diet as condition Indicates. [x] RN may downgrade diet as indicated. Type: [] Continue current diet of: Diet and Supplements Diet DIET CONSISTENT CARBOHYDRATE Number of Occurrences: -1 Days [] Other: Consistency/Precautions: [] Whole [] Thin Liquids [] Cut-up [] [place] Thick [] Advanced Chopped [] Honey Thickened [] Chopped [] Advanced Ground [] 1:1 feedings [] Ground/Pureed [] Other: Tube Feedings: [] PEG [] GT [] JT [] NGT [] Formula type: (Bolt Sawyer may change/substitute if indicated). [] Continuous Rate: [...] & Management for: ____same as above [] HAIR SALON MANAGER Evaluation &Management for: [] Other: Wound/Skin Care: [...] Take 15 mg by mouth ni linda. Westport-3 Fatty Acids (FISH OIL CONCENTRATE) 1000 MG [...] Orders/Instructions: Physician's signature:__Chris Nicole PA-C 07/05/2014 13:18 [facility] JMGAKarsten [facility] USE ONLY: [] Admitting [...] tolerate progressive walking and doing stairs [facility] stay due to multiple pain c/o. Attempted to see pt. 1145, however had just rec eived pain medication and requested PT return, SPL 9/10. At 1205 pt contacted PT for assist OOB due to left LE spasms and need for position change. Sitting at EOB on arrival, GLASS BULB MACHINE ADJUSTER pres ent. Pt. donned LSO brace, stood [...] of endurance. When patient is walking [facility] with a regular FWW she has to stop frequently and states she feels very weak, like sh e may fall. Patient lives alone. Outpatient prescriptions are filled at [facility] in [facility]. Electronically signed by: Franca Narvaez RN 07/05/2014 10:43 lan of Adilene Layne Rivers - 07/05/2014 10:39 AM PDTFaxed referral to Gabriela Stout and Lidia Tran. [place] : [id number] and [place]: [id number] Electronically signed by: Layne Collado 07/05/2014 10:40 [...] TBD) Equipment Recommendations: tub bench;hand held shower head;rug clipper;comfort height toilet ( pt. has all necessary equipment) Planned Interventions: ADL retraining;transfer training Patient Status/Goals Reflects last filed data of patient status; may be from multiple contributors. Grooming: Status: did not occur today Assist: Utilizes: STG: Status: New Goal:modified independent LTG: Status: Goal: UE Dressing: Status: SBA Assist: Utilizes: STG: Status: Goal: LTG: Status: Goal: LE Dressing: Status: SBA Utilizes: rug clipper STG: Status: New Goal: modified independent LTG: [...] bed mobil ity. Pt has been using MALE MODEL and pain pills during the night. Zofran [...] by herself in a small apartment in [place]. Patient states she has her apartment set [...] [facility] come from [facility] [place]. She states the Said she might benefit [facility] upon discharge. She would like me to contact [facility] to giv e them a heads up. I called and spoke to Summer at [facility] , told her patients PCP i s [...] Pt. resting in bed on arrival, used MALE MODEL x 2 during session. SPL 5/10. 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 Sidelying to sit at [...] TBD) Equipment Recommendations: tub bench;hand held shower head;rug clipper;comfort height toilet ( pt. has all necessary [...] & Review . Outcome: Progressing Pt using MALE MODEL and PO pain pills, c/o numbness on [...] and on a continuous oximeter for her MALE MODEL. She was unable to do her IS because o f the medications. She has the IS at bedside with a goal of 2400. She did not require additi onal respiratory care throughout the evening. p Note - Frandy Teresa, - 07/02/2014 2:25 PM PDTDATE: 07/02/2014 SURGEON: Frandy Teresa MD. NAMED ACCOUNT EXECUTIVE: ZANE Oh PREOPERATIVE DIAGNOSES 1. Spondylolisthesis, L5-S1. [...] x 26 mm Capstone PEEK cage from [employer] was chosen. It was filled with Infus [...] Note Cindy Arndt 58 y.o. female 1955 [id number] Proc. Date 07/02/2014 Preop Dx Spondylolisthesis L5-S1 Postop Dx same Procedure Procedure(s):MIS L5-S1 TRANSFORAMINAL LUMBAR INTERBODY FUSION Anesthesia General Surgeon Frandy Teresa DO Client Relations Representative ZANE Oh EBL 100 mL Findings Findings consistent with scheduled procedure. No other abnormalities found. Complications none Specimens * No specimens in log * Drains Electronically signed by: Frandy Teresa DO 07/02/2014 14:22 [facility] documented in this en counter [...] [address] | | | | | | [place] [address] | | | | | | [phone] | | | | | | | | +--------+ + + + + | 08/28/ | Office | Cardiology | Dora De La Torre | | | 2020 | Visit | | [address] | | | | | | [address] | | | | | | [place] [address] | | | | | | [phone] | | | | | | | [...] SELMA | | | | | | ESHTELA | | | - | | | [...] + | [facility] | [address] | [place] | [phone] | | [facility] | | [address] | | | - LABORATORY | | | | + + + + + | [facility] | [address] | [place] | | | [facility] | | [address] | | | - LABORATORY | | [...] + | [facility] | [address] | [place], [place] | [phone] | | [facility] | | [address] | | | - LABORATORY | | | | + + + + + | [facility] | [address] | [place], [place] | | | [facility] | | [address] | | | - LABORATORY | | [...] [address] | [place] | [phone] | | [facility] | | [address] | | | - LABORATORY | | | | + + + + + | [facility] [facility] | [address] | [place], [place] | | | [facility] | | [address] | | | - LABORATORY | | [...] + | [facility] | [address] | [place] | [phone] | | [facility] | | [address] | | | - LABORATORY | | | | + + + + + | [facility] | [address] | [place], [place] | | | [facility] | | [address] | | | [...] [address] | [place] | [phone] | | [facility] | | [address] | | | - LABORATORY | | | | + + + + + | [address] | [address] | [place] | | | [facility] | | [address] | | | - LABORATORY | | [...] + | [facility] | [address] | [place] | [phone] | | [facility] | | [address] | | | - LABORATORY | | | | + + + + + | [facility] | [address] | [place], [place] | | | [facility] | | [address] | | | [...] | | POC | | | STaL DORA | | | | | | [...] [address] | [place] | [phone] | | [facility] | | [address] | | | - LABORATORY | | | | + + + + + | [address] | [address] | [place] | | | [facility] | | [address], [facility] | | | - LABORATORY [...] + | [facility] | [address] | [place], [place] | [phone] | | [facility] | | [address] | | | - LABORATORY | | | | + + + + + | [facility] | [address] | [place], [place] | | | [facility] | | [id number] [place] [address] | | | - LABORATORY | | [...] + | [facility] | [address] | [place], [place] | [phone] | | [facility] | | [address] | | | - LABORATORY | | | | + + + + + | [facility] | [address] | [place], [place] | | | [facility] | | [id number] [place] [address] | | | - LABORATORY | | [...] | of hardware for posterior fusion from X7epgngbs S1 with interbody hardware at L5-S1. The [...] + | MISCELLANEOUS LAB | | | [phone] | + +---------+ + + | MISCELANIOUS LAB | | | [phone] | + +---------+ + + POC Glucose [...] + | [facility] | [address] | [place] | [phone] | | [facility] | | [address] | | | - LABORATORY | | | | + + + + + | [facility] | [address] | [place] | | | [facility] | | [address], [facility] | | | - LABORATORY [...] + | [facility] | [address] | [place], [place] | [phone] | | [facility] | | [address] | | | - LABORATORY | | | | + + + + + | [facility] | [address] | [place], [place] | | | [facility] | | [address] | | | - LABORATORY | | [...] [address] | [place] | [phone] | | [facility] | | [address] | | | - LABORATORY | | | | + + + + + | [facility] [facility] | [address] | [place] | | | [facility] | | [address] | | | - LABORATORY | | [...] + | [facility] | [address] | [place], [place] | [phone] | | [facility] | | [address] | | | - LABORATORY | | | | + + + + + | [facility] | [address] | [place], [place] | | | [facility] | | [address] | | | - LABORATORY | | [...] [address] | [place] | [phone] | | [facility] | | [address] | | | - LABORATORY | | | | + + + + + | [facility] | [address] | [place] | | | [facility] | | [address] | | | - LABORATORY | | [...] | | [facility] | | [address] | | | - BLOOD BANK | [...] + +---------+ +---+---+---+ | morphine 5 mg/mL MALE MODEL syringe | New Bag | 07/02/20 | [...] | | | | Dose(mg): 0, Starting MALE MODEL | | | | | | | Dose(mg): 1, Incremental Increase | | | | | | | MALE MODEL Dose(mg): 0.5, Maximum MALE MODEL | | | | | | | [...]
--- OUTSIDE RECORDS SUMMARY | ~2020-05-23 | XMS | Encounter Summary ---
Demographics + + + | Address | [address] | | | [place] [address] | + + + | Home Phone [...] [place], [place] | | | | | [address] | | + + + + + Care Team Providers + +------+ + | Care Manager Investment Name | Role | Phone | + +------+ + PCP | Unavailable | + +------+ + Encounter Details +--------+ + + + + | Date | Type | Department | Care Team | Description | +--------+ + + + + | 02/22/ | Hospital | [facility] | | | | 1996 - | Encounter | MED CTR GENERIC PSY | | | | | | CONV DEPT [address] | | | | 02/26/ | | [address], | | | | 1996 | | [place] [address] | | | | | | [phone] | | | +--------+ + + + [...] [address] | | | | | | [place] [address] | | | | | | [phone] | | | | | | | | +--------+ + + + + | 08/28/ | Office | Cardiology | Dora De La Torre | | | 2019 | Visit | | [address] | | | | | | [address] | | | | | | [place] [address] | | | | | | [phone] | | | | | | | | +--------+ + + + + documented as of this encounter Visit Diagnoses Not on filedocumented in this encounter"
--- OUTSIDE RECORDS SUMMARY | ~2020-05-23 | XMS | Encounter Summary ---
Demographics + + + | Address | [address] | | | [place] [address] | + + + | Home Phone [...] [place] | | | | | [address] | | + + + + + [...] | | | | | | [place] [address] | | | | | | [phone] | | | | | | | [...] in | | | | | | [place] with a | | | | | [...] [facility] | | | | | | [facility] | | | | | | Laboratory, [place], | | | | | | [place], delivered | | | | | | [...] by | | | | | | wsvgmyqpYsy-Vef-K: | | | | | | Increased [...] istryMHC-1: | | | | | | [id number] stain | | | | | | [...] [facility] | [address] | [place] [address] | | | PATHOLOGY | [place] | | | + + + + + documented in this encounter Visit Diagnoses Not on filedocumented in this encounter
--- OUTSIDE RECORDS SUMMARY | ~2020-05-23 | XMS | Encounter Summary ---
Demographics + + + | Address | [address] | | | [place] [address] | + + + | Home Phone [...] [place], [place] | | | | | [address] | | + + + + + Care Team Providers + +------+ + | Care Orthopaedic Technologist Name | Role | Phone | + +------+ + PCP | Unavailable | + +------+ + Encounter Details +--------+ + + + + | Date | Type | Department | Care Team | Description | +--------+ + + + + | 06/19/ | Hospital | [facility] | | | | 1991 - | Encounter | MED CTR GENERIC PSY | | | | | | CONV DEPT [address] | | | | 06/24/ | | [address], | | | | 1991 | | [place] [address] | | | | | | [phone] | | | +--------+ + + + [...] [address] | | | | | | [place] [address] | | | | | | [phone] | | | | | | | | +--------+ + + + + | 08/28/ | Office | Cardiology | Dora De La Torre | | | 2019 | Visit | | [address] | | | | | | [address] | | | | | | [place] [address] | | | | | | [phone] | | | | | | | | +--------+ + + + + documented as of this encounter Visit Diagnoses Not on filedocumented in this encounter"
--- OUTSIDE RECORDS SUMMARY | ~2020-05-23 | XMS | Encounter Summary ---
Demographics + + + | Address | [address] [facility] | | | [place] [address] | + + + | Home Phone [...] [place] | | | | | [address] | | + + + + + Care Team Providers + +------+ + | Care Museum Service Scheduler Name | Role | Phone | [...] | Transcriptions | + + | Interface, Potato Peeler In - 11/04/2006 3:03 AM PST | | [address] | | [place], [place] [address] [facility] | | ClinicsOPERATION RECORDMed Rec No.: [...] skin retractor was put in place. The Sobieski elevators wereused to separate the | | [...]
--- OUTSIDE RECORDS SUMMARY | ~2020-05-23 | XMS | Encounter Summary ---
Demographics + + + | Address | [address] | | | [place] [address] | + + + | Home Phone [...] [place] | | | | | [address] | | + + + + + Care Team Providers + +------+ + | Care Commercial Insurance Underwriter Name | Role | Phone | [...] | Frandy Simons DO | [address] | | | | | of skin | [address] | [place], | | | | | sensation | [address] | [place] | | | | | Arthrodesis | [place], [place] | [address] | | | | | status Left | [address] | Phone: | | | | | leg | Phone: | [phone] | | | | | weakness | [phone] | Fax: | | | | | Procedures | Fax: | [phone] | | | | | MRI Lumbar | [phone] | | | | | | Spine [...] [address] | [address] [place], [place] | | | | | [place], [place] | [id number] | | | | | [address] | | | | | | [phone] | | | +--------+ + + + [...] scheduled samson for her MRI here at [facility] on 08/19. SHAYNE ARAGON eleFrandy [...] | | | | | [place] [address] | | | | | | [phone] | | | | | | | | +--------+ + + + + | 08/28/ | Office | Cardiology | Dora De La Torre | | | 2020 | Visit | | [address] | | | | | | [address] | | | | | | [place] [address] | | | | | | [phone] | | | | | | | [...] the round structure with high T1 and T8umqqkt in the right L3 vertebral | | [...] + | MISCELLANEOUS LAB | | | [phone] | + +---------+ + + | MISCELANIOUS LAB | | | [phone] | + +---------+ + + documented in [...]
--- OUTSIDE RECORDS SUMMARY | ~2020-05-23 | XMS | Encounter Summary ---
Demographics + + + | Address | [address] | | | [place] [address] | + + + | Home Phone [...] [place] | | | | | [address] | | + + + + + Care Team Providers + +------+ + | Care Senior Sql Server Dba Name | Role | Phone | + [...] + + | 07/30/ | Telephone | [facility] | Ashley Chávez | Other (Patient | | 2019 | | CARDIOLOGY GENESIS Abad, [employer] | mariela ) | | | | [address] | | | | | | [facility] [place] | | | | | | [address] | | | | | | [phone] | | | +--------+ + + + [...] Miscellaneous Notes Telephone Encounter - Ashley Chávez [employer] - 07/30/2019 1:40 PM Shila norton to patient to advise of Dr. Peterson's notes. Patient stated understanding. BRODY:MANGO. el ephone Encounter - Ashley Chávez, [employer] - 07/30/2019 1:40 PM PDT----- Mess age [...] Thanks ----- Message ----- From: Ashley Chávez [employer] Sent: 07/30/2019 11:47 To: Desiree Peterson DO [...] [address] | | | | | | [place] [address] | | | | | | [phone] | | | | | | | | +--------+ + + + + | 08/28/ | Office | Cardiology | Dora De La Torre | | | 2019 | Visit | | [address] | | | | | | [address] | | | | | | [place] [address] | | | | | | [phone] | | | | | | | | +--------+ + + + + documented as of this encounter Visit Diagnoses Not on filedocumented in this encounter"
--- OUTSIDE RECORDS SUMMARY | ~2020-05-23 | XMS | Encounter Summary ---
Demographics + + + | Address | [address] | | | [place] [address] | + + + | Home Phone [...] [place] | | | | | [address] | | + + + + + Care Team Providers + +------+ + | Care Briquette Machine Operator Name | Role | [...] + + | 06/27/ | Office | [facility] | Yecenia Richardson, | Hypertension, | | 2019 | Visit | CARDIOLOGY [place] | MD Nitin RODRIGUES | unspecified type | | | | [address] | [place], [place] | (Primary Dx); | | | | KEV SCHAF[facility] | [address] | Bradycardia | | | | [place] | | | | | | [address] | | | | | | [phone] | | | +--------+---------+ + + + [...] urgent basis. Had an appointment today in [facility]. She has been feeling dizzy as [...] Take by mouth. Blood Glucose Monitoring Suppl (Inveni VERIO FLEX SYSTEM) w/Device KIT by Does [...] mg by mouth Daily. Cholecalciferol (VITAMIN D-3) 30166 units CAPS Take 50,000 Units by mouth [...] tablet Take 10 mg by mouth nightly. Effie-3 Fatty Acids (FISH OIL CONCENTRATE) 1000 MG [...] [address] | | | | | | [place] [address] | | | | | | [phone] | | | | | | | | +--------+ + + + + | 08/28/ | Office | Cardiology | Dora De La Torre | | | 2019 | Visit | | [address] | | | | | | [address] | | | | | | [place] [address] | | | | | | [phone] | | | | | | | [...]
--- OUTSIDE RECORDS SUMMARY | ~2020-05-23 | XMS | Encounter Summary ---
Demographics + + + | Address | [address] | | | [place] [address] | + + + | Home Phone [...] [place] | | | | | [address] | | + + + + + Care Team Providers + +------+ + | Care Partner Manager Name | Role | Phone | [...] + + | 11/25/ | Telephone | [facility] | Frandy Teresa, | Medication Refill | | 2014 | | NEUROSURGERY [address] | DO [address] | Assistance | | | | [address] [facility] [address] | [address] [place], [place] | | | | | [place], [place] | [id number] | | | | | [address] | | | | | | [phone] | | | +--------+ + + + [...] get a refill of her pain medication Monarch 10-325 mg. I l et her know we are beyond the 90 days after her surgery and refills need to come from her [facility] provider. She requests us to update [...] [address] | | | | | | [place] [address] | | | | | | [phone] | | | | | | | | +--------+ + + + + | 08/28/ | Office | Cardiology | Dora De La Torre | | | 2019 | Visit | | [address] | | | | | | [address] | | | | | | [place] [address] | | | | | | [phone] | | | | | | | | +--------+ + + + + documented as of this encounter Visit Diagnoses Not on filedocumented in this encounter"
--- OUTSIDE RECORDS SUMMARY | ~2020-05-23 | XMS | Encounter Summary ---
Demographics + + + | Address | [address] [address] | | | [place] [address] | + + + | Home Phone [...] [place] | | | | | [address] | | + + + + + Care Team Providers + +------+ + | Care Flooring Grader Name | Role | Phone | [...] | | | | | | [place] [address] | | | | | | [phone] | | | | | | | [...] in | | | | | | [place] with a | | | | | [...] | | | | | | [facility] | | | | | | Laboratory, [place], | | | | | | [place], [...] by | | | | | | fqzspqxgQye-Iqn-W: | | | | | | Increased [...] istryMHC-1: | | | | | | [id number] stain | | | | | | [...] | + + + + + | [facility] | [address] | [place] [address] | | | PATHOLOGY | [place] FELIX | | | + + + + + documented in this encounter Visit Diagnoses Not on filedocumented in this encounter
--- OUTSIDE RECORDS SUMMARY | ~2020-05-23 | XMS | Encounter Summary ---
Demographics + + + | Address | [address] | | | [place] [address] | + + + | Home Phone [...] [place] | | | | | [address] | | + + + + + Care Team Providers + +------+ + | Care Manager Brand Name | Role | Phone | + [...] | | | [facility], [address] | | | | | | [place], [place] | | | | | | [address] | | | | | | [phone] | | | +--------+ + + + [...] as of this encounter Progress Notes Interface, Music Publicist In - 12/11/2006 5:03 AM [facility] DATE: 07/03/97 INFECTIOUS DISEASE CLINIC: [...]
--- OUTSIDE RECORDS SUMMARY | ~2020-05-23 | XMS | Encounter Summary ---
Demographics + + + | Address | [address] | | | [place] [address] | + + + | Home Phone [...] [place], [place] | | | | | [address] | | + + + + + Care Team Providers + +------+ + | Care Tattoo Identifier Name | Role | Phone | + +------+ + PCP | Unavailable | + +------+ + Encounter Details +--------+ + + + + | Date | Type | Department | Care Team | Description | +--------+ + + + + | 02/16/ | Hospital | [facility] | | | | 1994 | Encounter | MED CTR LABORATORY | | | | | | [address] | | | | | | [place] | | | | | | [address] | | | | | | [phone] | | | +--------+ + + + [...] | | | | | [place] [address] | | | | | | [phone] | | | | | | | | +--------+ + + + + | 08/28/ | Office | Cardiology | Dora De La Torre | | | 2020 | Visit | | [address] | | | | | | [address] | | | | | | [place] [address] | | | | | | [phone] | | | | | | | | +--------+ + + + + documented as of this encounter Visit Diagnoses Not on filedocumented in this encounter"
--- OUTSIDE RECORDS SUMMARY | ~2020-05-23 | XMS | Encounter Summary ---
Demographics + + + | Address | [address] | | | [place] [address] | + + + | Home Phone [...] [place] | | | | | [address] | | + + + + + Care Team Providers + +------+ + | Care Automation Engineering Technician Name | Role | Phone | + +------+ + | Natalee Andersen NP | PCP | | + +------+ + Encounter Details +--------+ + + + + | Date | Type | Department | Care Team | Description | +--------+ + + + + | 07/25/ | Hospital | [facility] | Frandy Teresa, | Status post lumbar | | 2014 | Encounter | MED CTR XRAY [address] | DO [address] | spinal fusion | | | | [employer] [place] | [address] [place], [place] | | | | | [place] [address] | [address] | | | | | [phone] | | | +--------+ + + + [...] + + + +---------+ + + | Howard-3 Fatty | Take 1,000 mg by | [...] | | | | | [place] [address] | | | | | | [phone] | | | | | | | | +--------+ + + + + | 08/28/ | Office | Cardiology | Dora De La Torre | | | 2020 | Visit | | [address] | | | | | | [address] | | | | | | [place] [address] | | | | | | [phone] | | | | | | | [...] + | MISCELLANEOUS LAB | | | [phone] | + +---------+ + + | MISCELANIOUS LAB | | | [phone] | + +---------+ + + documented in this encounter Visit Diagnoses + + | Diagnosis | + + | Status post lumbar spinal fusion Arthrodesis status | + + documented in this encounter"
--- OUTSIDE RECORDS SUMMARY | ~2020-05-23 | XMS | Encounter Summary ---
Demographics + + + | Address | [address] | | | [place] [address] | + + + | Home Phone [...] [place] | | | | | [address] | | + + + + + Care Team Providers + +------+ + | Care Music Engineer Name | Role | Phone | + +------+ + | Natalee Andersen NP | PCP | | + +------+ + Encounter Details +--------+---------+ + + + | Date | Type | Department | Care Team | Description | +--------+---------+ + + + | 06/25/ | Surgery | [facility] | Frandy Teresa, | Canceled | | 2013 | | MED CTR OR INTRA OP | DO [address] | PROCEDURE NOT | | | | [address] | [address] [place], [place] | PERFORMED | | | | [place], [place] | [address] | | | | | [address] | | | | | | [phone] | | | +--------+---------+ + + + [...] + + + +---------+ + + | Ravenna-3 Fatty | Take 1,000 mg by | [...] en counter H&P Notes ONBRUCE ABREU [facility] - 06/21/2014 12:00 AM PDT 14 1:21 [...] MD at 06/26/2014 8:[address] [facility] [place] - 06/26 12:00 AM PDT NBRUCE ZAMORA N [facility] [place] - 06/26/2014 12:[address] PDT [address] [facility] [place] - 06/12/2014 12:00 AM PDTElectronically signed by Mariah Schulte at 06/12 7:30 AM [facility] [place] - 06/11/2014 12:00 AM PDT documented in this encounter Miscellaneous Notes Miscellaneous - ONBASE SCAN [facility] [place] - 06/26/2014 12:00 AM PDT lan of [...] stenosis, lumbar region, without neurogenic claudication ). Cement Tile Maker visit is in response to an electronic spiritual care consult request. Patient wa s resting comfortably in bed; she was attended by her mom and dad - both sate nearby and see med very attentive and supportive. Cindy is Taoist, attends [employer], and is strong in her rangel. She is excited about taking care of her back problem and fe els very secure in Dr. Teresa's care. She welcomed prayer, and expressed appreciation for th visit. Follow up with regular visits, emotional and spiritual support. iscellaneo us - ONBASE SCAN [facility] [place] - 06/25/2014 12:00 AM PDTElectronically signed by [...] [address] | | | | | | [place] [address] | | | | | | [phone] | | | | | | | | +--------+ + + + + | 08/28/ | Office | Cardiology | Dora De La Torre | | | 2019 | Visit | | [address] | | | | | | [address] | | | | | | [place] [address] | | | | | | [phone] | | | | | | | [...] mL/min/1.73m2 | [facility] | | | [place] | RATE,ESTIMATED | | MEDICAL | | | | mL/min/1.20u1Srjw than | | CENTER - | | [...] + | [facility] | [address] | [place], [place] | [phone] | | [facility] | | [address] | | | - LABORATORY | | | | + + + + + | [facility] | [address] | [place], [place] | | | [facility] | | [address] [place] [address] | | | - LABORATORY | | [...] + | [facility] | [address] | [place] | [phone] | | [facility] | | [address] | | | - LABORATORY | | | | + + + + + | [facility] | [address] | [place] | | | [facility] | | [address], [facility] | | [...] [address] | [place] | [phone] | | [facility] | | [address] | | | - LABORATORY | | | | + + + + + | [facility] [facility] | [address] | [place] | | | [facility] | | [address], [facility] | | [...] | | [facility] | | [address] | | | - BLOOD BANK | [...] + | [facility] | [address] | [place], [place] | [phone] | | [facility] | | [address] | | | - LABORATORY | | | | + + + + + | [facility] [facility] | [address] | [place], [place] | | | [facility] | | [address] | | | [...]
--- OUTSIDE RECORDS SUMMARY | ~2020-05-23 | XMS | Encounter Summary ---
Demographics + + + | Address | [address] [facility] [address] | | | [place] [address] | + + + | Home Phone [...] [place] | | | | | [address] | | + + + + + Care Team Providers + +------+ + | Care Residential Green Building Designer Name | Role | Phone | [...] | Transcriptions | + + | Interface, Pmp Project Manager In - 11/04/2006 3:03 AM PST | | [address] | | [place], [place] [address] [facility] and | | ClinicsOPERATION RECORDMed [...] skin retractor was put in place. The [place] elevators wereused to separate the | | [...]
--- OUTSIDE RECORDS SUMMARY | ~2020-05-23 | XMS | Encounter Summary ---
Demographics + + + | Address | [address] | | | [place] [address] | + + + | Home Phone [...] [place] | | | | | [address] | | + + + + + Care Team Providers + +------+ + | Care Commercial Development Manager Name | Role | Phone [...] | | | | | Procedures | LENS MARKER [address] | [address] | | | | | [place] OFFICE | | [address] | | | | | CONSULTATION | [address] | [place] | | | | | NEW/ESTAB | [facility], | [address] Phone: | | | | | PATIENT 60 | [place] [address] | [phone] | | | | | MIN | Phone: | Fax: | | | | | | [phone] | [phone] | | | | | | Fax: | | | | | | | [phone] | | +--------+--------+ + + + + Encounter Details +--------+---------+ + + + | Date | Type | Department | Care Team | Description | +--------+---------+ + + + | 05/02/ | Office | [facility] | Frandy Teresa, | Spondylolisthesis of | | 2013 | Visit | NEUROSURGERY [address] | DO [address] | lumbar region | | | | [address] | [address] [place], [place] | (Primary Dx); Lumbar | | | | [place], [place] | [id number] | stenosis; Lumbar | | | | [address] | | radicular pain; | | | | [phone] | | Lumbago | +--------+---------+ + + [...] [facility] [address] [place], [place] [address] FAX: NEUROSURGERY HISTORY AND PHYSICAL EXAMINATION CHIEF [...] Take 15 mg by mouth nightl y. Schuyler-3 Fatty Acids (FISH OIL CONCENTRATE) 1000 MG [...] has no apparent deficits with short or tank terminal gauger memory. CRANIAL NERVES: II: Acuity is intact. [...] Intrinsics 5 5 Ulnar Intrinsics 5 5 Printer Technician Strength 5 5 Hip Flexion 5 [...] Miscellaneous Notes Miscellaneous - ONBASE SCAN [facility] - 05/02/2014 12:00 AM PDT iscellaneous - ONBASE SCAN [facility] - 05/02/2014 12:00 AM PDTEle ctronically signed by [facility] at 05/08/2014 8:56 AM PDTdocumented in [...] [address] | | | | | | [place] [address] | | | | | | [phone] | | | | | | | | +--------+ + + + + | 08/28/ | Office | Cardiology | Dora De La Torre | | | 2019 | Visit | | [address] | | | | | | [address] | | | | | | [place] [address] | | | | | | [phone] | | | | | | | [...]
--- OUTSIDE RECORDS SUMMARY | ~2020-05-23 | XMS | Encounter Summary ---
Demographics + + + | Address | [address] | | | [place] [address] | + + + | Home Phone [...] [place] | | | | | [address] | | + + + + + Care Team Providers + +------+ + | Care Latex Dipper Name | Role | Phone | [...] + + | 08/30/ | Telephone | [facility] | Ashley Chávez | Other (Patient wants | | 2018 | | CARDIOLOGY [place] | Pollo, Care Tech | to take monitor | | | | [address] | | off. ) | | | | [address] | | | | | | [place] | | | | | | [address] | | | | | | [phone] | | | +--------+ + + + [...] Miscellaneous Notes Telephone Encounter - Ashley Chávez, Care Tech - 08/30/2019 9:19 AM Bertagutierrez t called [...] thankful for the news. Patient stated understanding JDW:SEMICONDUCTOR DEVELOPMENT TECHNICIAN-AAMA. [facility] umented [...] [address] | | | | | | [place] [address] | | | | | | [phone] | | | | | | | | +--------+ + + + + | 08/28/ | Office | Cardiology | Dora De La Torre | | | 2020 | Visit | | [address] | | | | | | [address] | | | | | | [place] [address] | | | | | | [phone] | | | | | | | | +--------+ + + + + documented as of this encounter Visit Diagnoses Not on filedocumented in this encounter"
--- OUTSIDE RECORDS SUMMARY | ~2020-05-23 | XMS | Encounter Summary ---
Demographics + + + | Address | [address] | | | [place] [address] | + + + | Home Phone [...] [place], [place] | | | | | [address] | | + + + + + Care Team Providers + +------+ + | Care Head Sugar Reprocess Operator Name | Role | Phone | + +------+ + PCP | Unavailable | + +------+ + Encounter Details +--------+ + + + + | Date | Type | Department | Care Team | Description | +--------+ + + + + | 02/22/ | Hospital | [facility] | | | | 1996 | Encounter | MED CTR EMERGENCY | | | | | | [address] | | | | | | [place] | | | | | | [address] | | | | | | [phone] | | | +--------+ + + + [...] | | | | | [place] [address] | | | | | | [phone] | | | | | | | | +--------+ + + + + | 08/28/ | Office | Cardiology | Dora De La Torre | | | 2020 | Visit | | [address] | | | | | | [address] | | | | | | [place] [address] | | | | | | [phone] | | | | | | | | +--------+ + + + + documented as of this encounter Visit Diagnoses Not on filedocumented in this encounter"
--- OUTSIDE RECORDS SUMMARY | ~2020-05-23 | XMS | Encounter Summary ---
Demographics + + + | Address | [address] | | | [place] [address] | + + + | Home Phone [...] [place] | | | | | [address] | | + + + + + Care Team Providers + +------+ + | Care Pre Wave Assembler Name | Role | Phone | [...] | 01/02/ | Telephone | [facility] | Frandy Teresa, | Other (6m x-ray ) | | 2015 | | NEUROSURGERY [address] | DO [address] | | | | | [address] | [address] [place], [place] | | | | | [place], [place] | [id number] | | | | | [address] | | | | | | [phone] | | | +--------+ + + + [...] for review. The order was faxed to [facility] today. She will let us know when [...] | | | | | [place] [address] | | | | | | [phone] | | | | | | | | +--------+ + + + + | 08/28/ | Office | Cardiology | Dora De La Torre | | | 2019 | Visit | | [address] | | | | | | [address] | | | | | | [place] [address] | | | | | | [phone] | | | | | | | | +--------+ + + + + documented as of this encounter Visit Diagnoses Not on filedocumented in this encounter"
--- OUTSIDE RECORDS SUMMARY | ~2020-05-23 | XMS | Encounter Summary ---
Demographics + + + | Address | [address] | | | [place] [address] | + + + | Home Phone [...] [place] | | | | | [address] | | + + + + + Care Team Providers + +------+ + | Care Termite Renewal Inspector Name | Role | Phone | [...] sleep apnea) | | | | [address] [place] [address] [place] | (Primary Dx); | | | | [place] [address] | [place] [address] | Sleepiness | | | | [phone] | [phone] | | | | | | | [...] differen t from the original. 03/06/13 1000 [place] Sleepiness Scale Sitting and reading 3 Watching [...] by mouth Daily., Disp: , Rfl: ; Weiner-3 Fatty Acids (FISH OIL CONCENTRATE) 1000 MG [...] th is encounter Miscellaneous Notes Miscellaneous - [facility] - 03/06/2013 12:00 AM PDT iscellaneous - [facility] - 03/06/2013 12:00 AM PDTEle ctronically signed [...] [address] | | | | | | [place] [address] | | | | | | [phone] | | | | | | | | +--------+ + + + + | 08/28/ | Office | Cardiology | Dora De La Torre | | | 2019 | Visit | | [address] | | | | | | [address] | | | | | | [place] [address] | | | | | | [phone] | | | | | | | | +--------+ + + + + documented as of this encounter Visit Diagnoses + + | Diagnosis | + + | ROGERS (obstructive sleep apnea) - Primary Obstructive sleep apnea (adult) (pediatric) | + + | Sleepiness Other alteration of consciousness | + + documented in this encounter"
--- OUTSIDE RECORDS SUMMARY | ~2020-05-23 | XMS | Encounter Summary ---
Demographics + + + | Address | [address] | | | [place] [address] | + + + | Home Phone [...] [place], [place] | | | | | [address] | | + + + + + Care Team Providers + +------+ + | Care Staple Fiber Washer Name | Role | Phone | + +------+ + PCP | Unavailable | + +------+ + Encounter Details +--------+ + + + + | Date | Type | Department | Care Team | Description | +--------+ + + + + | 01/25/ | Hospital | [facility] | | | | 2002 | Encounter | MED CTR XRAY [address] | | | | | [address] | | | | | | [place] [address] | | | | | | [phone] | | | +--------+ + + + [...] | | | | | [place] [address] | | | | | | [phone] | | | | | | | | +--------+ + + + + | 08/28/ | Office | Cardiology | Dora De La Torre | | | 2019 | Visit | | [address] | | | | | | [address] | | | | | | [place] [address] | | | | | | [phone] | | | | | | | | +--------+ + + + + documented as of this encounter Visit Diagnoses Not on filedocumented in this encounter"
--- OUTSIDE RECORDS SUMMARY | ~2020-05-23 | XMS | Encounter Summary ---
Demographics + + + | Address | [address] | | | [place] [address] | + + + | Home Phone [...] [place], [place] | | | | | [address] | | + + + + + Care Team Providers + +------+ + | Care Unit Leader Name | Role | Phone | + +------+ + PCP | Unavailable | + +------+ + Encounter Details +--------+ + + + + | Date | Type | Department | Care Team | Description | +--------+ + + + + | 06/07/ | Hospital | [facility] | | | | 1991 - | Encounter | MED CTR GENERIC OP | | | | | | CONV DEPT [address] | | | | 10/07/ | | [address], | | | | 1991 | | [place] [address] | | | | | | [phone] | | | +--------+ + + + [...] [address] | | | | | | [place] [address] | | | | | | [phone] | | | | | | | | +--------+ + + + + | 08/28/ | Office | Cardiology | Dora De La Torre | | | 2019 | Visit | | [address] | | | | | | [address] | | | | | | [place] [address] | | | | | | [phone] | | | | | | | | +--------+ + + + + documented as of this encounter Visit Diagnoses Not on filedocumented in this encounter"
--- OUTSIDE RECORDS SUMMARY | ~2020-05-23 | XMS | Encounter Summary ---
Demographics + + + | Address | [address] | | | [place] [address] | + + + | Home Phone [...] [place] | | | | | [address] | | + + + + + Care Team Providers + +------+ + | Care Sprayer Operator Name | Role | Phone | [...] [place] | | | | | | [address] | | | | | | [phone] | | | +--------+ + + + [...] | | | | | [place] [address] | | | | | | [phone] | | | | | | | | +--------+ + + + + | 08/28/ | Office | Cardiology | Dora De La Torre | | | 2020 | Visit | | [address] | | | | | | [address] [address] | | | | | | [place] [address] | | | | | | [phone] | | | | | | | | +--------+ + + + + documented as of this encounter Visit Diagnoses Not on filedocumented in this encounter"
--- OUTSIDE RECORDS SUMMARY | ~2020-05-23 | XMS | Encounter Summary ---
Demographics + + + | Address | [address] | | | [place] [address] | + + + | Home Phone [...] [place], [place] | | | | | [address] | | + + + + + Care Team Providers + +------+ + | Care Program Advocate Name | Role | Phone | + +------+ + PCP | Unavailable | + +------+ + Encounter Details +--------+ + + + + | Date | Type | Department | Care Team | Description | +--------+ + + + + | 03/11/ | [facility] | [facility] | Deon Gonzales | | | 2004 | Encounter | MED CTR SLEEP | MD [place] | | | | | [place] [address] | [facility] | | | | | [place], [place] | [place] [address] | | | | | [address] | [phone] | | | | | [phone] | | | +--------+ + + + [...] | | | | | [place] [address] | | | | | | [phone] | | | | | | | | +--------+ + + + + | 08/28/ | Office | Cardiology | Dora De La Torre | | | 2019 | Visit | | [address] | | | | | | [address] | | | | | | [place] [address] | | | | | | [phone] | | | | | | | | +--------+ + + + + documented as of this encounter Visit Diagnoses Not on filedocumented in this encounter"
--- OUTSIDE RECORDS SUMMARY | ~2020-05-23 | XMS | Encounter Summary ---
Demographics + + + | Address | [address] | | | [place] [address] | + + + | Home Phone [...] [place] | | | | | [address] | | + + + + + Care Team Providers + +------+ + | Care Hairspring Setter Name | Role | Phone | [...] + + | 08/13/ | Documentati | [facility] | Katharine Moncada, | Other (urgent | | 2019 | on | CARDIOLOGY [place] | Technologist | report) | | | | [address] | | | | | | [place] | | | | | | [address] | | | | | | [phone] | | | +--------+ + + + [...] | | | | | [place] [address] | | | | | | [phone] | | | | | | | | +--------+ + + + + | 08/28/ | Office | Cardiology | Dora De La Torre | | | 2020 | Visit | | [address] | | | | | | [address] | | | | | | [place] [address] | | | | | | [phone] | | | | | | | | +--------+ + + + + documented as of this encounter Visit Diagnoses Not on filedocumented in this encounter"
--- OUTSIDE RECORDS SUMMARY | ~2020-05-23 | XMS | Encounter Summary ---
Demographics + + + | Address | [address] | | | [place] [address] | + + + | Home Phone [...] [place], [place] | | | | | [address] | | + + + + + Care Team Providers + +------+ + | Care Music Engraver Name | Role | Phone | + +------+ + PCP | Unavailable | + +------+ + Encounter Details +--------+ + + + + | Date | Type | Department | Care Team | Description | +--------+ + + + + | 10/29/ | Hospital | [facility] | | | | 1994 | Encounter | MED CTR LABORATORY | | | | | | [address] | | | | | | [place] | | | | | | [address] | | | | | | [phone] | | | +--------+ + + + [...] | | | | | [place] [address] | | | | | | [phone] | | | | | | | | +--------+ + + + + | 08/28/ | Office | Cardiology | Dora De La Torre | | | 2020 | Visit | | [address] | | | | | | [address] | | | | | | [place] [address] | | | | | | [phone] | | | | | | | | +--------+ + + + + documented as of this encounter Visit Diagnoses Not on filedocumented in this encounter"
--- OUTSIDE RECORDS SUMMARY | ~2020-05-23 | XMS | Encounter Summary ---
Demographics + + + | Address | [address] | | | [place] [address] | + + + | Home Phone [...] [place] | | | | | [address] | | + + + + + Care Team Providers + +------+ + | Care Supervisor Liquefaction Name | Role | Phone | + [...] + + | 05/01/ | Telephone | [facility] | Dora De La Torre | Medication Question | | 2020 | | CARDIOLOGY [place] | [address] | | | | | [address] | [address] | | | | | [address] | [place] [address] | | | | | [place] | [phone] | | | | | [address] | | | | | | [phone] | | | +--------+ + + + [...] [address] | | | | | | [place] [address] | | | | | | [phone] | | | | | | | | +--------+ + + + + | 11/05/ | Office | Cardiology | Dora De La Torre | | | 2020 | Visit | | [address] | | | | | | [address] | | | | | | [place] [address] | | | | | | [phone] | | | | | | | | +--------+ + + + + documented as of this encounter Visit Diagnoses Not on filedocumented in this encounter"
--- OUTSIDE RECORDS SUMMARY | ~2020-05-23 | XMS | Encounter Summary ---
Demographics + + + | Address | [address] | | | [place] [address] | + + + | Home Phone [...] [place] | | | | | [address] | | + + + + + Care Team Providers + +------+ + | Care Director Of Psychology Name | Role | Phone | + +------+ + | Natalee Andersen NP | PCP | | + +------+ + Encounter Details +--------+ + + + + | Date | Type | Department | Care Team | Description | +--------+ + + + + | 06/25/ | Hospital | [facility] | Latricia Feliciano | | | 2014 | Encounter | MED CTR ACUTE | D, PT [address] | | | | | PHYSICAL THERAPY | NEFTALIE [place] PAIGE | | | | | [address] | [address] | | | | | [place] [address] | | | | | | [phone] | | | +--------+ + + + [...] + + + +---------+ + + | Ponce-3 Fatty | Take 1,000 mg by | [...] | | | | | [place] [address] | | | | | | [phone] | | | | | | | | +--------+ + + + + | 08/28/ | Office | Cardiology | Dora De La Torre | | | 2020 | Visit | | [address] | | | | | | [address] | | | | | | [place] [address] | | | | | | [phone] | | | | | | | | +--------+ + + + + documented as of this encounter Visit Diagnoses Not on filedocumented in this encounter"
--- OUTSIDE RECORDS SUMMARY | ~2020-05-23 | XMS | Encounter Summary ---
Demographics + + + | Address | [address] | | | [place] [address] | + + + | Home Phone [...] [place] | | | | | [address] | | + + + + + [...] Closed | | Radiology | Diagnoses | [place], | | | | | | Thoracic or | Natalee L, | | | | | | lumbosacral | SPECIAL EFFECTS TECHNICIAN [address] | | | | | | neuritis or | [address] | | | | | | | [address] | | | | | | radiculitis, | [place], | | | | | | unspecified | [place] [address] | | | | | | | Phone: | | | | | | Degeneration | [phone] | | | | | | of lumbar | Fax: | | | | | | or | [phone] | | | | | | lumbosacral [...] + + | 03/11/ | Hospital | [facility] | Natalee Andersen | Thoracic or | | 2013 | Encounter | MED CTR MRI [address] | L, SPECIAL EFFECTS TECHNICIAN [address] | lumbosacral neuritis | | | | [place], | [address] | or radiculitis, | | | | [place] [address] | [place] [address] | unspecified; | | | | [phone] | [phone] | Degeneration of | | | | [...] + + + +---------+ + + | La Verne-3 Fatty | Take 1,000 mg by | [...] | | | | | [place] [address] | | | | | | [phone] | | | | | | | | +--------+ + + + + | 08/28/ | Office | Cardiology | Dora De La Torre | | | 2019 | Visit | | [address] | | | | | | [address] | | | | | | [place] [address] | | | | | | [phone] | | | | | | | [...] + | MISCELLANEOUS LAB | | | [phone] | + +---------+ + + | MISCELANIOUS LAB | | | [phone] | + +---------+ + + documented in this encounter Visit Diagnoses + + | Diagnosis | + + | Thoracic or lumbosacral neuritis or radiculitis, unspecified | + + | Degeneration of lumbar or lumbosacral intervertebral disc | + + documented in this encounter"
--- OUTSIDE RECORDS SUMMARY | ~2020-05-23 | XMS | Encounter Summary ---
Demographics + + + | Address | [address] | | | [place] [address] | + + + | Home Phone [...] [place] | | | | | [address] | | + + + + + Care Team Providers + +------+ + | Care Derrick Man Name | Role | Phone | [...] | [address] | [place], [place] | Radiculopathy of | | | | [place], [place] | [address] | leg; Lumbar spine | | | | [address] | | instability; Lumbar | | | | [phone] | | spondylosis; | | | | [...] ZANE Castillo [address] [place], [place] [address] FAX: NEUROSURGERY HISTORY AND PHYSICAL EXAMINATION CHIEF [...] Take 15 mg by mouth nightl y. Keenes-3 Fatty Acids (FISH OIL CONCENTRATE) 1000 MG [...] apparent deficits with short or termite treater memory. CRANIAL NERVES: II: Acuity is intact. [...] Intrinsics 5 5 Ulnar Intrinsics 5 5 Contract Clerk Automobile Strength 5 5 Hip Flexion 5 4* [...] [address] | | | | | | [place] [address] | | | | | | [phone] | | | | | | | | +--------+ + + + + | 08/28/ | Office | Cardiology | Dora De La Torre | | | 2019 | Visit | | [address] | | | | | | [address] | | | | | | [place] [address] | | | | | | [phone] | | | | | | | [...]
--- OUTSIDE RECORDS SUMMARY | ~2020-05-23 | XMS | Encounter Summary ---
Demographics + + + | Address | [address] | | | [place] [address] | + + + | Home Phone [...] [place] | | | | | [address] | | + + + + + Care Team Providers + +------+ + | Care Product Coordinator Name | Role | Phone | [...] + + | 05/23/ | Telephone | [facility] | Desiree Peterson DO | Chest Pain | | 2020 | | CARDIOLOGY CRANKS | [address] | | | | | [address] | [place], [place] | | | | | [place], [place] | [address] | | | | | [address] | | | | | | [phone] | | | +--------+ + + + [...] Protocols, 4th Edition by Lincoln Cullen MD [facility]. Chest Pain protocol was used. documented in [...] [address]U | | | | | | [place] [address] | | | | | | [phone] | | | | | | | | +--------+ + + + + | 08/28/ | Office | Cardiology | Dora De La Torre | | | 2019 | Visit | | [address] | | | | | | [address] | | | | | | [place] [address] | | | | | | [phone] | | | | | | | | +--------+ + + + + documented as of this encounter Visit Diagnoses Not on filedocumented in this encounter
--- OUTSIDE RECORDS SUMMARY | ~2020-05-23 | XMS | Encounter Summary ---
Demographics + + + | Address | [address] | | | [place] [address] | + + + | Home Phone [...] [place] | | | | | [address] | | + + + + + Care Team Providers + +------+ + | Care Petroleum Production Engineer Name | Role | Phone | [...] | Transcriptions | + + | Interface, On Car Supervisor In - 10/24/2006 3:09 AM PST | | [facility] | | Road [place], [place] [address] [place] | | [facility] HospitalOPERATION RECORDMed Rec No.: [id number] Date: | [...]
--- OUTSIDE RECORDS SUMMARY | ~2020-05-23 | XMS | Encounter Summary ---
Demographics + + + | Address | [address] | | | [place] [address] | + + + | Home Phone [...] [place] | | | | | [address] | | + + + + + Care Team Providers + +------+ + | Care Healthcare Analyst Name | Role | Phone | [...] + | 02/21/ | Refill | [facility] | Deon Gonzales | Medication Refill | | 2012 | | SLEEP DISORDER [address] | MD Laureano [address] | | | | | [address] | [address] | | | | | [place] [address] | [place] [address] | | | | | [phone] | [phone] | | | | | | | [...] - 02/22/2013 9:32 AM [facility] documented in this encount er Plan [...] [address]U | | | | | | [place] [address] | | | | | | [phone] | | | | | | | | +--------+ + + + + | 08/28/ | Office | Cardiology | Dora De La Torre | | | 2020 | Visit | | [address] | | | | | | [address] | | | | | | [place] [address] | | | | | | [phone] | | | | | | | | +--------+ + + + + documented as of this encounter Visit Diagnoses + + | Diagnosis | + + | Obstructive sleep apnea (adult) (pediatric) - Primary | + + documented in this encounter"
--- OUTSIDE RECORDS SUMMARY | ~2020-05-23 | XMS | Encounter Summary ---
Demographics + + + | Address | [address] | | | [place] [address] | + + + | Home Phone [...] [place] | | | | | [address] | | + + + + + Care Team Providers + +------+ + | Care Check Pilot Name | Role | Phone | [...] + + | 10/22/ | Telephone | [facility] | Susu Peralta, | Other | | 2019 | | CARDIOLOGY [place] Nath RN | | | | | [address] | | | | | | [place], [place] | | | | | | [address] | | | | | | [phone] | | | +--------+ + + + [...] | | | | | [place] [address] | | | | | | [phone] | | | | | | | | +--------+ + + + + | 08/28/ | Office | Cardiology | Dora De La Torre | | | 2019 | Visit | | [address] | | | | | | [address] | | | | | | [place] [address] | | | | | | [phone] | | | | | | | | +--------+ + + + + documented as of this encounter Visit Diagnoses Not on filedocumented in this encounter"
--- OUTSIDE RECORDS SUMMARY | ~2020-05-23 | XMS | Encounter Summary ---
Demographics + + + | Address | [address] | | | [place] [address] | + + + | Home Phone [...] [place] | | | | | [address] | | + + + + + Care Team Providers + +------+ + | Care Wall Cleaner Name | Role | Phone | [...] [address] | [address] [place], [place] | | | | | [place], [place] | [address] | | | | | [address] | | | | | | [phone] | | | +--------+ + + + [...] [address] | | | | | | [place] [address] | | | | | | [phone] | | | | | | | | +--------+ + + + + | 08/28/ | Office | Cardiology | Dora De La Torre | | | 2020 | Visit | | [address] | | | | | | [address] | | | | | | [place] [address] | | | | | | [phone] | | | | | | | [...] + | MISCELLANEOUS LAB | | | [phone] | + +---------+ + + | MISCELANIOUS LAB | | | [phone] | + +---------+ + + documented in this encounter Visit Diagnoses + + | Diagnosis | + + | Back pain - Primary Backache, unspecified | + + documented in this encounter"
--- OUTSIDE RECORDS SUMMARY | ~2020-05-23 | XMS | Encounter Summary ---
Demographics + + + | Address | [address] | | | [place] [address] | + + + | Home Phone [...] [place] | | | | | [address] | | + + + + + [...] + + | 08/09/ | Documentati | [facility] | Katharine Moncada, | Other (end of study) | | 2019 | on | CARDIOLOGY JOPPA | Technologist | | | | | [address] | | | | | | [place], [place] | | | | | | [address] | | | | | | [phone] | | | +--------+ + + + [...] Technologist - 08/09/2019 11:59 PM PDT Cardiac Hasher Operator Date of Event Monitor: 08/09/19 Referring [...] [address]ANTU | | | | | | [place] [address] | | | | | | [phone] | | | | | | | | +--------+ + + + + | 08/28/ | Office | Cardiology | Dora De La Torre | | | 2019 | Visit | | [address] | | | | | | [address] | | | | | | [place] [address] | | | | | | [phone] | | | | | | | | +--------+ + + + + documented as of this encounter Visit Diagnoses Not on filedocumented in this encounter"
--- OUTSIDE RECORDS SUMMARY | ~2020-05-23 | XMS | Encounter Summary ---
Demographics + + + | Address | [address] | | | [place] [address] | + + + | Home Phone [...] [place], [place] | | | | | [address] | | + + + + + Care Team Providers + +------+ + | Care Cooler Tender Name | Role | Phone | [...] [address] | | | | | [place] | [place] | | | | | [place] [address] | [address] | | | | | [phone] | | | +--------+ + + + [...] [address] | | | | | | [place] [address] | | | | | | [phone] | | | | | | | | +--------+ + + + + | 08/28/ | Office | Cardiology | Dora De La Torre | | | 2019 | Visit | | [address] | | | | | | [address] | | | | | | [place] [address] | | | | | | [phone] | | | | | | | [...] [facility] Diagnostic Imaging Department | [place] | | [address] [facility] | [place] | | PROCEDURE: EPIDURAL STEROID | [...] Transcribed Date/Time: | | | 02/03/2012 18:45 Tracer Bullet Charging Machine Operator: <Electronically Signed | | | by Serafin Bautista MD> 02/14/12 0916 | | + + + + + | Procedure Note | + + | Juan, Rad Conversion - 11/30/2013 5:06 PM [facility] | | Diagnostic Imaging Department | | [...] | Transcribed Date/Time: 02/03/2012 18:45 | | Tracer Bullet Charging Machine Operator: | | <Electronically Signed by Serafin [...]
--- OUTSIDE RECORDS SUMMARY | ~2020-05-23 | XMS | Encounter Summary ---
Demographics + + + | Address | [address] | | | [place] [address] | + + + | Home Phone [...] [place] | | | | | [address] | | + + + + + Care Team Providers + +------+ + | Care Supervisor Education Name | Role | Phone | [...] [place] | | | | | | [address] | | | | | | [phone] | | | +--------+ + + + [...] | | | | | [place] [address] | | | | | | [phone] | | | | | | | | +--------+ + + + + | 08/28/ | Office | Cardiology | Dora De La Torre | | | 2020 | Visit | | [address] | | | | | | [address] | | | | | | [place] [address] | | | | | | [phone] | | | | | | | | +--------+ + + + + documented as of this encounter Visit Diagnoses Not on filedocumented in this encounter"
--- OUTSIDE RECORDS SUMMARY | ~2020-05-23 | XMS | Encounter Summary ---
Demographics + + + | Address | [address] | | | [place] [address] | + + + | Home Phone [...] Author + + + | Author | [facility] | + + + | Organization | [facility] | + + + | Address | Unknown | + + + | Phone | Unavailable | + + + Support + + + + + | Name | Relationship | Address | Phone | + + + + + | Kelsy Bautista | ECON | [address] | | | | | [place] | | | | | [address] | | + + + + + Care Team Providers + +------+ + | Care Finished Hardware Erector Name | Role | Phone | [...] | | | | | | [place], | | | | | | [place] [address] | | | | | | [phone] | | | +--------+ + + + [...]
--- OUTSIDE RECORDS SUMMARY | ~2020-05-23 | XMS | Encounter Summary ---
Demographics + + + | Address | [address] | | | [place] [address] | + + + | Home Phone [...] [place] | | | | | [address] | | + + + + + Care Team Providers + +------+ + | Care Tub Chucker Name | Role | Phone | + [...] + + | 08/28/ | Telephone | [facility] | Ashley Chávez | Other (Patient has | | 2018 | | CARDIOLOGY [place] Abad, Radio Commentator | questions about | | | | [address] | | monitor. ) | | | | [place] | | | | | | [address] | | | | | | [phone] | | | +--------+ + + + [...] Miscellaneous Notes Telephone Encounter - Ashley Chávez, Radio Commentator - 08/28/2019 8:32 AM Rory foster says [...] that if she chooses. Patient stated understanding. JPolloW:MICROS[employer]FT BI DEVELOPER-AAMA. [facility] umented in this encounter Plan of Treatment [...] [address]U | | | | | | [place] [address] | | | | | | [phone] | | | | | | | | +--------+ + + + + | 08/28/ | Office | Cardiology | Dora De La Torre | | | 2020 | Visit | | [address] | | | | | | [address] | | | | | | [place] [address] | | | | | | [phone] | | | | | | | | +--------+ + + + + documented as of this encounter Visit Diagnoses Not on filedocumented in this encounter"
--- OUTSIDE RECORDS SUMMARY | ~2020-05-23 | XMS | Encounter Summary ---
Demographics + + + | Address | [address] | | | [place] [address] | + + + | Home Phone [...] [place] | | | | | [address] | | + + + + + Care Team Providers + +------+ + | Care Tail Board Worker Name | Role | Phone | [...] | Frandy Simons DO | [address] | | | | | of skin | [address] | [place], | | | | | sensation | [address] | [place] | | | | | Arthrodesis | [place], [place] | [address] | | | | | status Left | [address] | Phone: | | | | | leg | Phone: | [phone] | | | | | weakness | [phone] | Fax: | | | | | Procedures | Fax: | [phone] | | | | | MRI Lumbar | [phone] | | | | | | Spine [...] | Frandy Simons DO | [address] | | | | | of skin | [address] | [place], | | | | | sensation | [address] | [place] | | | | | Arthrodesis | [place] | [address] | | | | | status Left | [address] | Phone: | | | | | leg | Phone: | [phone] | | | | | weakness | [phone] | Fax: | | | | | Procedures | Fax: | [phone] | | | | | MRI Lumbar | [phone] | | | | | | Spine wo | | | | | | | Contrast | | | +--------+--------+ + + + + Encounter Details +--------+ + + + + | Date | Type | Department | Care Team | Description | +--------+ + + + + | 08/19/ | Hospital | [facility] | Frandy Teresa, | Status post lumbar | | 2013 | Encounter | MED CTR MRI [address] | DO [address] | spinal fusion; Left | | | | [place], | [address] [place] | leg numbness; Left | | | | [place] [address] | [address] | leg weakness | | | | [phone] | | | +--------+ + + + [...] + + + +---------+ + + | Margaret-3 Fatty | Take 1,000 mg by | [...] [address]U | | | | | | [place] [address] | | | | | | [phone] | | | | | | | | +--------+ + + + + | 08/28/ | Office | Cardiology | Dora De La Torre | | | 2019 | Visit | | [address] | | | | | | [address] | | | | | | [place] [address] | | | | | | [phone] | | | | | | | [...] the round structure with high T1 and [id number] in the right L3 vertebral | | [...] + | MISCELLANEOUS LAB | | | [phone] | + +---------+ + + | MISCELANIOUS LAB | | | [phone] | + +---------+ + + documented in [...]
--- OUTSIDE RECORDS SUMMARY | ~2020-05-23 | XMS | Encounter Summary ---
Demographics + + + | Address | [address] | | | [place] [address] | + + + | Home Phone [...] [place], [place] | | | | | [address] | | + + + + + Care Team Providers + +------+ + | Care Music Department Chair Name | Role | Phone | + +------+ + PCP | Unavailable | + +------+ + Encounter Details +--------+ + + + + | Date | Type | Department | Care Team | Description | +--------+ + + + + | 09/10/ | Hospital | [facility] | | | | 1992 | Encounter | MED CTR LABORATORY | | | | | | [address] | | | | | | [place] | | | | | | [address] | | | | | | [phone] | | | +--------+ + + + [...] | | | | | [place] [address] | | | | | | [phone] | | | | | | | | +--------+ + + + + | 08/28/ | Office | Cardiology | Dora De La Torre | | | 2020 | Visit | | [address] | | | | | | [address] | | | | | | [place] [address] | | | | | | [phone] | | | | | | | | +--------+ + + + + documented as of this encounter Visit Diagnoses Not on filedocumented in this encounter"
--- OUTSIDE RECORDS SUMMARY | ~2020-05-23 | XMS | Encounter Summary ---
Demographics + + + | Address | [address] | | | [place] [address] | + + + | Home Phone [...] [place] | | | | | [address] | | + + + + + Care Team Providers + +------+ + | Care Psychiatric Rn Name | Role | Phone | [...] + + | 12/17/ | Office | [facility] | Dora De La Torre | History of atrial | | 2020 | Visit | CARDIOLOGY [place] | [address] | fibrillation; Benign | | | | [address] | [address] | essential HTN; | | | | [address] | [place] [address] | History of | | | | [place], [place] | [phone] | hypothyroidism; | | | | [address] | | Stress | | | | [phone] | | hyperglycemia; | | | | [...] of fatigue and shortness of breath. Her ANH2VB5 VASC score is 4 (stroke, HTN, gender) , and Dr. Peterson did not anticoagulate he r due to low incidence of atrial fib. Her current and previous testing and procedures are detailed below. She was seen in the emergency room on October 11, 2019 at [facility] and presented wi th paranoia feeling that knives were chasing her , so went to the emergency room so that she could feel safe and Had [facility] evaluation and discharged home Labs performed at [...] 405 and [facility], and she was to be started on Abilify. She was seen again in the emergency room on October 19 and , [id number] for sim ilar complaints with increased delusions, [...] She has previously seen Dr. Garland in [place], and different provider in [place] when lived over there. She reports she [...] thirst or hunger. Psychiatric/Behavioral: Bipolar/Schizophrenia. Tx'd by [facility] Vaccines: Current on flu vaccine: 2019 Current on pneumonia vaccine:PPSV 23 05/29/2013 Habits/Social : Denies history of smoking. Denies EtOH use. Denies recreational or illici t drug use. Exercises sporadically. Lives in [place] . Outpatient Medications Prior to Visit Medication [...] Take by mouth. Blood Glucose Monitoring Suppl ([employer] VERIO FLEX SYSTEM) w/Device KIT by Does not ap ply route. budesonide-formoterol (SYMBICORT) 160-4.5 mcg/puff inhaler Inhale 2 puffs into the lung s 2 (two) times daily. calcium carbonate antacid (TUMS ULTRA 1000) 1000 MG CHEW Chew and swallow 1,000 mg 4 ti mes daily as needed. Cholecalciferol (VITAMIN D-3) [address] units CAPS Take 50,000 Units by mouth [...] chest discomfort, patient unable to walk on [email or web address]. Resting EKG normal sinus rhythm, arrhythmias ventricular [...] nonspecific ST-T wave abnormality rate 82 bpm, KS 176 ms, QRS 80 ms, QTC 446 ms tracing personally reviewed by me EK12/17/2019: Sinus tachycardia, nonspecific ST wave abnormalities, rate 105 bpm, KS 196 ms, QRS 74 ms, QTC 430 ms, tracing personally reviewed by me, and compared to EKG performed in February 2019, rate is less well-controlled LABS Labs: 12/26/2018: ( [facility])CMP: Sodium 139, potassium 4.2, chloride 99, BUN 10, creatinine 0. 7, BNP 28. CBC: WBC 7.8, hemoglobin 14.3, hematocrit 42.7, platelets 214 Labs: 09/28/2019:( [facility]) CBC: WBC 7.8, hemoglobin 14.9, hematocrit 43.8, platelets 221. C MP: Sodium 132, potassium 4.2, chloride 95, AST 76, ALT 76, alk phos 134 Labs: 10/11/2019:( [facility]) CBC: WBC 6.7, RBC 4.97, hemoglobin 15.2, hematocrit 44.7, platel ets 200. CMP: Glucose 385, BUN 7, creatinine 0.62, GFR 97, sodium 131, potassium 4.1, chlor kelby 95, albumin 4.3, total bilirubin 0.6, AST 75, ALT 73, alk phos 144. Thyroid: TSH 4.27 Labs: 10/12/2020:( [facility]) CBC: WBC 7, RBC 4.93, hemoglobin 14.7, hematocrit 44.1, platele ts 186 normal UA CMP: Glucose 381, BUN 6, creatinine 0.63, GFR 95, sodium 133, potassium 3.8 , chloride 97, albumin 4.3, total bili 0.6, AST 62, ALT 75, alk phos 145 thyroid: TSH 3.07 Labs: 10/20/2019:( [facility]) CBC: WBC 7.1, RBC 4.93, hemoglobin [...] in a prescription to her local pharmacy [facility]'s . I made no other changes to [...] purp ose Preston [facility]UC[facility] 12/17/2019 docume nted in this encounter [...] [address] | | | | | | [place] [address] | | | | | | [phone] | | | | | | | | +--------+ + + + + | 08/28/ | Office | Cardiology | Britt Dora | | | 2019 | Visit | | [address] | | | | | | [address] | | | | | | [place] [address] | | | | | | [phone] | | | | | | | [...] | | | | | | [place] ([id number]) on | | | | | | [...]
--- OUTSIDE RECORDS SUMMARY | ~2020-05-23 | XMS | Encounter Summary ---
Demographics + + + | Address | [address] | | | [place] [address] | + + + | Home Phone [...] [place] | | | | | [address] | | + + + + + [...] + | 05/02/ | Telephone | [facility] | Frandy Teresa, | Other | | 2013 | | NEUROSURGERY [address] | [address] | | | | | [address] | [address] [place], [place] | | | | | [place], [place] | [phone] | | | | | [address] | | | | | | [phone] | | | +--------+ + + + [...] | | | | | [place] [address] | | | | | | [phone] | | | | | | | | +--------+ + + + + | 08/28/ | Office | Cardiology | D[facility] De La Torre | | | 2019 | Visit | | [address] | | | | | | [address] | | | | | | [place] [address] | | | | | | [phone] | | | | | | | | +--------+ + + + + documented as of this encounter Visit Diagnoses Not on filedocumented in this encounter"
--- OUTSIDE RECORDS SUMMARY | ~2020-05-23 | XMS | Encounter Summary ---
Demographics + + + | Address | [address] | | | [place] [address] | + + + | Home Phone [...] [place], [place] | | | | | [address] | | + + + + + Care Team Providers + +------+ + | Care Facilities Assistant Name | Role | Phone | + +------+ + PCP | Unavailable | + +------+ + Encounter Details +--------+ + + + + | Date | Type | Department | Care Team | Description | +--------+ + + + + | 08/21/ | Hospital | [facility] | | | | 1996 | Encounter | MED CTR LABORATORY | | | | | | [address] | | | | | | [place] | | | | | | [address] | | | | | | [phone] | | | +--------+ + + + [...] | | | | | [place] [address] | | | | | | [phone] | | | | | | | | +--------+ + + + + | 08/28/ | Office | Cardiology | Dora De La Torre | | | 2020 | Visit | | [address] | | | | | | [address] | | | | | | [place] [address] | | | | | | [phone] | | | | | | | | +--------+ + + + + documented as of this encounter Visit Diagnoses Not on filedocumented in this encounter"
--- OUTSIDE RECORDS SUMMARY | ~2020-05-23 | XMS | Encounter Summary ---
Demographics + + + | Address | [address] | | | [place] [address] | + + + | Home Phone [...] [place] | | | | | [address] | | + + + + + Care Team Providers + +------+ + | Care Orientation And Mobility Instructor Name | Role | Phone | [...] | | | | | | | [address] | | | | | | | Phone: | | | | | | | [phone] | | | | | | | Fax: | | | | | | | [phone] | | +--------+ + + + + + Reason for Visit + + + | Reason | Comments | + + + | Follow-up | 4 Week PO | + + + Encounter Details +--------+---------+ + + + | Date | Type | Department | Care Team | Description | +--------+---------+ + + + | 07/25/ | Office | [facility] | Frandy Teresa, | Lumbar spondylosis | | 2013 | Visit | NEUROSURGERY [address] | DO [address] | (Primary Dx); S/P | | | | [address] | [address] [place], [place] | lumbar fusion | | | | [place] | [address] | | | | | [address] | | | | | | [phone] | | | +--------+---------+ + + + [...] [address], [address] [place] [address] FAX: NEUROSURGERY SURGICAL FOLLOW-UP CHIEF COMPLAINT: Chief [...] Take 15 mg by mouth nightl y. [place]-3 Fatty Acids (FISH OIL CONCENTRATE) 1000 [...] [address] | | | | | | [place] [address] | | | | | | [phone] | | | | | | | | +--------+ + + + + | 08/28/ | Office | Cardiology | Dora De La Torre | | | 2019 | Visit | | [address] | | | | | | [address] | | | | | | [place] [address] | | | | | | [phone] | | | | | | | [...] + | MISCELLANEOUS LAB | | | [phone] | + +---------+ + + | MISCELANIOUS LAB | | | [phone] | + +---------+ + + documented in this encounter Visit Diagnoses + + | Diagnosis | + + | Lumbar spondylosis - Primary Lumbosacral spondylosis without myelopathy | + + | S/P lumbar fusion Arthrodesis status | + + documented in this encounter
--- OUTSIDE RECORDS SUMMARY | ~2020-05-23 | XMS | Encounter Summary ---
Demographics + + + | Address | [address] | | | [place] [address] | + + + | Home Phone [...] [place] | | | | | [address] | | + + + + + Care Team Providers + +------+ + | Care Product Safety Expert Name | Role | Phone | [...] | | | | | [address] | [place], [place] | | | | | [place], [place] | [address] | | | | | [address] | | | | | | [phone] | | | +--------+ + + + [...] EVALUATION Cindy Arndt 58 y.o. female 1955 [id number] Scheduled procedure LAMINECTOMY PLIF/TLIF INSTRUMENTATION [1842] - [...] | | | | | [place] [address] | | | | | | [phone] | | | | | | | | +--------+ + + + + | 08/28/ | Office | Cardiology | Dora De La Torre | | | 2020 | Visit | | [address] | | | | | | [address] | | | | | | [place] [address] | | | | | | [phone] | | | | | | | | +--------+ + + + + documented as of this encounter Visit Diagnoses Not on filedocumented in this encounter"
--- OUTSIDE RECORDS SUMMARY | ~2020-05-23 | XMS | Encounter Summary ---
Demographics + + + | Address | [address] | | | [place] [address] | + + + | Home Phone [...] [place] | | | | | [address] | | + + + + + Care Team Providers + +------+ + | Care Food Checkers And Cashiers Supervisor Name | Role | Phone | [...] + + | 09/19/ | Telephone | [facility] | Ashley Chávez | Other (Patient | | 2018 | | CARDIOLOGY [place], [employer] | calling to be seen | | | | [address] | | mirella. ) | | | | [place] | | | | | | [address] | | | | | | [phone] | | | +--------+ + + + [...] Miscellaneous Notes Telephone Encounter - Ashley Chávez [employer] - 09/19/2019 10:41 AM PSTCall m cierar to patient to advise of Dr. Peterson's notes. Patient stated understanding. Patient asked why she couldn't be seen sooner, and I reminded her that we offered her a monae ner appointment that she turned down. Patient said thank you and hung up. CLAYTONW:MANGO. el ephone Encounter - Ashley Chávez [employer] - 09/19/2019 10:40 AM PST Dora De La Torre, CAROLINE Peterson DO; Ashley Chávez [employer] So just an FYI: we offered her appointment today at 3 pm but she turned it down, and said she would keep scheduled appt. el ephone Encounter - Ashley Chávez [employer] - 09/19/2019 10:38 AM PST----- Mess age [...] she needs to be seen by a floral merchandiser. I have asked Lizeth to call her [...] help her pulse? Please advise. Thank you! [facility] rocky in this encounter Plan of Treatment [...] | | | | | [place] [address] | | | | | | [phone] | | | | | | | | +--------+ + + + + | 08/28/ | Office | Cardiology | Dora De La Torre | | | 2020 | Visit | | [address] | | | | | | [address] | | | | | | [place] [address] | | | | | | [phone] | | | | | | | | +--------+ + + + + documented as of this encounter Visit Diagnoses Not on filedocumented in this encounter"
--- OUTSIDE RECORDS SUMMARY | ~2020-05-23 | XMS | Encounter Summary ---
Demographics + + + | Address | [address] | | | [place] [address] | + + + | Home Phone [...] [place] | | | | | [address] | | + + + + + Care Team Providers + +------+ + | Care Funder Name | Role | Phone | + +------+ + | Basim Bolanos MD | PCP | | + +------+ + Encounter Details +--------+ + + + + | Date | Type | Department | Care Team | Description | +--------+ + + + + | 01/24/ | Abstract | [facility] [place] | [facility], | | | 2012 | | GASTROENTEROLOGY | FORTUNATO Thomas [address] | | | | | [address] | [address] | | | | | [address] [place], [place] | [place], [place] | | | | | [address] | [address] | | | | | [phone] | | | +--------+ + + + [...] | | | | | [place] [address] | | | | | | [phone] | | | | | | | | +--------+ + + + + | 08/28/ | Office | Cardiology | Dora De La Torre | | | 2019 | Visit | | [address] | | | | | | [address] | | | | | | [place] [address] | | | | | | [phone] | | | | | | | | +--------+ + + + + documented as of this encounter Visit Diagnoses Not on filedocumented in this encounter"
--- OUTSIDE RECORDS SUMMARY | ~2020-05-23 | XMS | Encounter Summary ---
Demographics + + + | Address | [address] | | | [place] [address] | + + + | Home Phone [...] [place] | | | | | [address] | | + + + + + Care Team Providers + +------+ + | Care Inside Sales Director Name | Role | Phone | [...] + + | 08/13/ | Documentati | [facility] | Katharine Moncada, | Other (urgent | | 2019 | on | CARDIOLOGY [place] | Technologist | report) | | | | [address] | | | | | | [place] | | | | | | [address] | | | | | | [phone] | | | +--------+ + + + [...] | | | | | [place] [address] | | | | | | [phone] | | | | | | | | +--------+ + + + + | 08/28/ | Office | Cardiology | Dora De La Torre | | | 2020 | Visit | | [address] | | | | | | [address] | | | | | | [place] [address] | | | | | | [phone] | | | | | | | | +--------+ + + + + documented as of this encounter Visit Diagnoses Not on filedocumented in this encounter"
--- OUTSIDE RECORDS SUMMARY | ~2020-05-23 | XMS | Encounter Summary ---
Demographics + + + | Address | [address] | | | [place] [address] | + + + | Home Phone [...] [place] | | | | | [address] | | + + + + + Care Team Providers + +------+ + | Care Private Eye Name | Role | Phone | + [...] + | 07/29/ | Telephone | [facility] | Frandy Cagle, | Other (multiple | | 2013 | | NEUROSURGERY [address] | DO [address] | questions) | | | | [facility] [address] | [address] [place], [place] | | | | | [place], [place] | [id number] | | | | | [address] | | | | | | [phone] | | | +--------+ + + + [...] and I might get a repeat MRI. [place] ordered. Thanks. ddendum Note - Shayne Aragon [...] - 07/29/2014 11:19 AM PDTCall [facility] fur ther [facility]. [...] refill be mailed to her for her [place] 10/325mg which was given to her on [...] | | | | | [place] [address] | | | | | | [phone] | | | | | | | | +--------+ + + + + | 08/28/ | Office | Cardiology | Dora De La Torre | | | 2019 | Visit | | [address] | | | | | | [address] | | | | | | [place] [address] | | | | | | [phone] | | | | | | | | +--------+ + + + + documented as of this encounter Visit Diagnoses Not on filedocumented in this encounter"
--- OUTSIDE RECORDS SUMMARY | ~2020-05-23 | XMS | Encounter Summary ---
Demographics + + + | Address | [address] | | | [place] [address] | + + + | Home Phone [...] [place], [place] | | | | | [address] | | + + + + + Care Team Providers + +------+ + | Care Service Tech/Welder Name | Role | Phone | + +------+ + PCP | Unavailable | + +------+ + Encounter Details +--------+ + + + + | Date | Type | Department | Care Team | Description | +--------+ + + + + | 07/17/ | Hospital | [facility] | | | | 1997 - | Encounter | MED CTR GENERIC PSY | | | | | | CONV DEPT [address] | | | | 07/25/ | | [address] [place], | | | | 1997 | | [place] [address] | | | | | | [phone] | | | +--------+ + + + [...] [address] | | | | | | [place] [address] | | | | | | [phone] | | | | | | | | +--------+ + + + + | 08/28/ | Office | Cardiology | Dora De La Torre | | | 2019 | Visit | | [address] | | | | | | [address] | | | | | | [place] [address] | | | | | | [phone] | | | | | | | | +--------+ + + + + documented as of this encounter Visit Diagnoses Not on filedocumented in this encounter"
--- OUTSIDE RECORDS SUMMARY | ~2020-05-23 | XMS | Encounter Summary ---
Demographics + + + | Address | [address] | | | [place] [address] | + + + | Home Phone [...] [place] | | | | | [address] | | + + + + + Care Team Providers + +------+ + | Care Inspector Aligning Name | Role | Phone | + [...] + + | 02/05/ | Telephone | [facility] | Ashley Chávez | Other (Patient | | 2020 | | CARDIOLOGY [place], Parole Director | ) | | | | [address] | | | | | | [place] | | | | | | [address] | | | | | | [phone] | | | +--------+ + + + [...] t week . elephone Enco Ashley Wong, Parole Director - 02/06/2020 2:53 PM PDTPatient states that [...] advise. Thank you! (sent to Dora Mendez) JDW:SAMPLE GRINDER-AAMA. doc umented in this encounter Plan of [...] [address] | | | | | | [place] [address] | | | | | | [phone] | | | | | | | | +--------+ + + + + | 08/28/ | Office | Cardiology | Dora De La Torre | | | 2019 | Visit | | [address] | | | | | | [address] | | | | | | [facility] [place] [place] [address] | | | | | | [phone] | | | | | | | | +--------+ + + + + documented as of this encounter Visit Diagnoses Not on filedocumented in this encounter
--- OUTSIDE RECORDS SUMMARY | ~2020-05-23 | XMS | Encounter Summary ---
Demographics + + + | Address | [address] | | | [place] [address] | + + + | Home Phone [...] [place], [place] | | | | | [address] | | + + + + + Care Team Providers + +------+ + | Care Box Cutter Name | Role | Phone | + +------+ + PCP | Unavailable | + +------+ + Encounter Details +--------+ + + + + | Date | Type | Department | Care Team | Description | +--------+ + + + + | 12/27/ | Hospital | [facility] | | | | 1997 | Encounter | MED CTR EMERGENCY | | | | | | [address] | | | | | | [place] | | | | | | [address] | | | | | | [phone] | | | +--------+ + + + [...] | | | | | [place] [address] | | | | | | [phone] | | | | | | | | +--------+ + + + + | 08/28/ | Office | Cardiology | Dora De La Torre | | | 2020 | Visit | | [address] | | | | | | [address] | | | | | | [place] [address] | | | | | | [phone] | | | | | | | | +--------+ + + + + documented as of this encounter Visit Diagnoses Not on filedocumented in this encounter"
--- OUTSIDE RECORDS SUMMARY | ~2020-05-23 | XMS | Encounter Summary ---
Demographics + + + | Address | [address] | | | [place] [address] | + + + | Home Phone [...] [place], [place] | | | | | [address] | | + + + + + Care Team Providers + +------+ + | Care Hydrocrane Operator Name | Role | Phone | + +------+ + PCP | Unavailable | + +------+ + Encounter Details +--------+ + + + + | Date | Type | Department | Care Team | Description | +--------+ + + + + | 12/22/ | Hospital | [facility] | | | | 1993 - | Encounter | MED CTR GENERIC PSY | | | | | | CONV DEPT [address] | | | | 12/25/ | | [address], | | | | 1993 | | [place] [address] | | | | | | [phone] | | | +--------+ + + + [...] [address] | | | | | | [place] [address] | | | | | | [phone] | | | | | | | | +--------+ + + + + | 08/28/ | Office | Cardiology | Dora De La Torre | | | 2019 | Visit | | [address] | | | | | | [address] | | | | | | [place] [address] | | | | | | [phone] | | | | | | | | +--------+ + + + + documented as of this encounter Visit Diagnoses Not on filedocumented in this encounter"
--- OUTSIDE RECORDS SUMMARY | ~2020-05-23 | XMS | Encounter Summary ---
Demographics + + + | Address | [address] | | | [place] [address] | + + + | Home Phone [...] [place] | | | | | [address] | | + + + + + Care Team Providers + +------+ + | Care Advertising Display Rotator Name | Role | Phone | + [...] [address] | [address] [place], [place] | Anxiety; Anemia; | | | | [place], [place] | [address] | Irregular heartbeat; | | | | [address] | | Depression; | | | | [phone] | | Migraine; | | | | [...] [address] | | | | | | [place] [address] | | | | | | [phone] | | | | | | | | +--------+ + + + + | 08/28/ | Office | Cardiology | Dora De La Torre | | | 2019 | Visit | | [address] | | | | | | [address] | | | | | | [place] [address] | | | | | | [phone] | | | | | | | [...]
--- OUTSIDE RECORDS SUMMARY | ~2020-05-23 | XMS | Encounter Summary ---
Demographics + + + | Address | [address] | | | [place] [address] | + + + | Home Phone [...] [place], [place] | | | | | [address] | | + + + + + Care Team Providers + +------+ + | Care Bank Examiner Name | Role | Phone | + +------+ + PCP | Unavailable | + +------+ + Encounter Details +--------+ + + + + | Date | Type | Department | Care Team | Description | +--------+ + + + + | 01/26/ | Hospital | [facility] | [place], | | | 2011 | Encounter | MED CTR XRAY [address] | MD [address] | | | | | [place] | [place] | | | | | [place] [address] | [address] | | | | | [phone] | | | +--------+ + + + [...] [address] | | | | | | [place] [address] | | | | | | [phone] | | | | | | | | +--------+ + + + + | 08/28/ | Office | Cardiology | Dora De La Torre | | | 2019 | Visit | | [address] | | | | | | [address] | | | | | | [place] [address] | | | | | | [phone] | | | | | | | [...] Performed At | + + + | [facility] | [place] | | [address] [facility] [place] | [facility] | | BILATERAL KNEES, THREE VIEWS: [...] Transcribed | | | Date/Time: 01/27/2012 17:18 Onion Farmer: | | | <Electronically Signed by Willie Perry MD> 01/27/12 0554 | | + + + + + | Procedure Note | + + | Juan, Rad Conversion - 11/30/2013 5:03 PM [facility] | | Diagnostic Imaging Department [address] [place] [address] | | BILATERAL KNEES, THREE VIEWS: 01/27/2012 [...] 17:12 | |Transcribed Date/Time: 01/27/2012 17:18 | |Onion Farmer: | |<Electronically Signed by Willie Perry MD> 01/27/122253 | + + + +---------+ + + | Performing | Address | City/State/Zipcode | Phone Number | | Organization | | | | + +---------+ + + | [place] | | | | | [facility] | | | | + +---------+ + + documented in this encounter Visit Diagnoses Not on filedocumented in this encounter"
--- OUTSIDE RECORDS SUMMARY | ~2020-05-23 | XMS | Encounter Summary ---
Demographics + + + | Address | [address] | | | [place] [address] | + + + | Home Phone [...] [place] | | | | | [address] | | + + + + + Care Team Providers + +------+ + | Care Remote Pilot Operator Name | Role | Phone | [...] + | 06/20/ | Telephone | [facility] | Frandy Teresa, | Other (surgery | | 2013 | | NEUROSURGERY [address] | DO [address] | reminder ) | | | | [address] | [address] [place], [place] | | | | | [place], [place] | [id number] | | | | | [address] | | | | | | [phone] | | | +--------+ + + + [...] | | | | | | [place] [address] | | | | | | [phone] | | | | | | | | +--------+ + + + + | 08/28/ | Office | Cardiology | Dora De La Torre | | | 2019 | Visit | | [address] | | | | | | [address] | | | | | | [place] [address] | | | | | | [phone] | | | | | | | | +--------+ + + + + documented as of this encounter Visit Diagnoses Not on filedocumented in this encounter"
--- OUTSIDE RECORDS SUMMARY | ~2020-05-23 | XMS | Encounter Summary ---
Demographics + + + | Address | [address] | | | [place] [address] | + + + | Home Phone [...] [place], [place] | | | | | [address] | | + + + + + Care Team Providers + +------+ + | Care Hypnotherapist Name | Role | Phone | + [...] | | | 1997 | | [place] [address] | | | | | | [phone] | | | +--------+ + + + [...] [address] | | | | | | [place] [address] | | | | | | [phone] | | | | | | | | +--------+ + + + + | 08/28/ | Office | Cardiology | Dora De La Torre | | | 2019 | Visit | | [address] | | | | | | [address] | | | | | | [place] [address] | | | | | | [phone] | | | | | | | | +--------+ + + + + documented as of this encounter Visit Diagnoses Not on filedocumented in this encounter"
--- OUTSIDE RECORDS SUMMARY | ~2020-05-23 | XMS | Encounter Summary ---
Demographics + + + | Address | [address] | | | [place] [address] | + + + | Home Phone [...] [place] | | | | | [address] | | + + + + + Care Team Providers + +------+ + | Care Flitch Hanger Name | Role | Phone | [...] | | | | | pain, | [place], [place] | | | | | | bilateral | [address] | | | | | | Degenerative | Phone: | | | | | | disc | [phone] | | | | | | disease, | Fax: | | | | | | lumbar | [phone] | | | | | | Spinal [...] [address] | [address] [place], [place] | (Primary Dx); Knee | | | | [place], [place] | [address] | pain, bilateral; | | | | [address] | | DEGENERATIVE DISC | | | | [phone] | | DISEASE, LUMBAR | | | [...] | | | | | [place] [address] | | | | | | [phone] | | | | | | | | +--------+ + + + + | 08/28/ | Office | Cardiology | Dora De La Torre | | | 2020 | Visit | | [address] M[address] | | | | | | [address] | | | | | | [place] [address] | | | | | | [phone] | | | | | | | [...]
--- OUTSIDE RECORDS SUMMARY | ~2020-05-23 | XMS | Encounter Summary ---
Demographics + + + | Address | [address] | | | [place] [address] | + + + | Home Phone [...] [place] | | | | | [address] | | + + + + + Care Team Providers + +------+ + | Care Home Teaching Grades 7 And 8 Teacher Name | Role | Phone | [...] | 02/01/ | Telephone | [facility] | Frandy Teresa, | Imaging Only | | 2019 | | NEUROSURGERY [address] | DO [address] | | | | | [address] | [address] [place], [place] | | | | | [place], [place] | [id number] | | | | | [address] | | | | | | [phone] | | | +--------+ + + + [...] | | [facility] [place] [address] | | | | | | [phone] | | | | | | | | +--------+ + + + + | 08/28/ | Office | Cardiology | Dora De La Torre | | | 2020 | Visit | | [address] | | | | | | [address] | | | | | | [place] [address] | | | | | | [phone] | | | | | | | | +--------+ + + + + documented as of this encounter Visit Diagnoses Not on filedocumented in this encounter"
--- OUTSIDE RECORDS SUMMARY | ~2020-05-23 | XMS | Encounter Summary ---
Demographics + + + | Address | [address] | | | [place] [address] | + + + | Home Phone [...] [place] | | | | | [address] | | + + + + + Care Team Providers + +------+ + | Care Pilot Control Operator Helper Name | Role | Phone | + +------+ + PCP | Unavailable | + +------+ + Encounter Details +--------+ + + + + | Date | Type | Department | Care Team | Description | +--------+ + + + + | 04/27/ | Hospital | [facility] | Sage Garza MD | | | 2001 | Encounter | HOSPITAL EMERGENCY | | | | | | CENTER [address] [place], [place] | | | | | | [address] | | | | | | [phone] | | | +--------+ + + + [...] | | | | | [place] [address] | | | | | | [phone] | | | | | | | | +--------+ + + + + | 08/28/ | Office | Cardiology | Dora De La Torre | | | 2020 | Visit | | [address] | | | | | | [address] | | | | | | [place] [address] | | | | | | [phone] | | | | | | | | +--------+ + + + + documented as of this encounter Visit Diagnoses Not on filedocumented in this encounter"
--- OUTSIDE RECORDS SUMMARY | ~2020-05-23 | XMS | Encounter Summary ---
Demographics + + + | Address | [address] | | | [place] [address] | + + + | Home Phone [...] [place] | | | | | [address] | | + + + + + Care Team Providers + +------+ + | Care General Manager Road Production Name | Role | Phone | [...] + + | 09/10/ | Documentati | [facility] | Katharine Moncada, | Other (urgent | | 2019 | on | CARDIOLOGY [place] | Technologist | report) | | | | [address] | | | | | | [place] | | | | | | [address] | | | | | | [phone] | | | +--------+ + + + [...] | | | | | [place] [address] | | | | | | [phone] | | | | | | | | +--------+ + + + + | 08/28/ | Office | Cardiology | Dora De La Torre | | | 2020 | Visit | | [address] | | | | | | [address] | | | | | | [place] [address] | | | | | | [phone] | | | | | | | | +--------+ + + + + documented as of this encounter Visit Diagnoses Not on filedocumented in this encounter"
--- OUTSIDE RECORDS SUMMARY | ~2020-05-23 | XMS | Encounter Summary ---
Demographics + + + | Address | [address] | | | [place] [address] | + + + | Home Phone [...] [place] | | | | | [address] | | + + + + + Care Team Providers + +------+ + | Care Traffic Administrator Name | Role | Phone | [...] [address] | [address] [place], [place] | Hypothyroidism; | | | | [place], [place] | [address] | GERD; BACK PAIN, | | | | [address] | | LUMBAR, WITH | | | | [phone] | | RADICULOPATHY; | | | | [...] | | | | | [place] [address] | | | | | | [phone] | | | | | | | | +--------+ + + + + | 08/28/ | Office | Cardiology | Dora De La Torre | | | 2019 | Visit | | [address] | | | | | | [address] | | | | | | [place] [address] | | | | | | [phone] | | | | | | | [...]
--- OUTSIDE RECORDS SUMMARY | ~2020-05-23 | XMS | Encounter Summary ---
Demographics + + + | Address | [address] | | | [place] [address] | + + + | Home Phone [...] [place] | | | | | [address] | | + + + + + Care Team Providers + +------+ + | Care Supervisor International Reservations Name | Role | Phone | + [...] | | | | | ECHO | [place], [place] | | | | | | Complete | [address] | | | | | | | Phone: | | | | | | | [phone] | | | | | | | Fax: | | | | | | | [phone] | | + +--------+ + + + + Reason for Visit + + + | Reason | Comments | + + + | Follow-up | 6 month | + + + Encounter Details +--------+---------+ + + + | Date | Type | Department | Care Team | Description | +--------+---------+ + + + | 04/03/ | Office | [facility] | Desiree Peterson DO | Left bundle branch | | 2020 | Visit | CARDIOLOGY [place] | [address] | block (Primary Dx); | | | | [address] | [address] [place], [place] | Benign essential | | | | [address] | [address] | HTN; New onset left | | | | [place], [place] | | bundle branch block | | | | [address] | | (LBBB); Obesity, | | | | [phone] | | Class III, BMI | | | | | | 40-49.9 (morbid | | | | | | obesity) ([facility]); | | | | | | [...] Peterson DO - 04/03/2020 10:20 AM PDT [facility] Cardiology Cardiology Follow [...] rtake in exercise. She recently got a [employer]dor[employer]a and has been walking him more regularly. 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 Blood Glucose Monitoring Suppl (ID.meIO FLEX SYSTEM) w/Device KIT by Does not ap ply route. budesonide-formoterol (SYMBICORT) 160-4.5 MCG/ACT inhaler Inhale 2 puffs into the lungs 2 (two) times daily. Calcium Carbonate Antacid 1000 MG tablet Take 1,000 mg by mouth 3 (three) times daily. Cholecalciferol (VITAMIN D3) 97450 units CAPS Take by mouth once a [...] ALT 76, alkaline phosphatase 134. Labs: 10/20/2019:( [facility]) CBC: WBC 7.1, RBC 4.93, [...] | | | | | [place] [address] | | | | | | [phone] | | | | | | | | +--------+ + + + + | 08/28/ | Office | Cardiology | Dora De La Torre | | | 2020 | Visit | | [address] | | | | | | [address] | | | | | | [place] [address] | | | | | | [phone] | | | | | | | [...]
--- OUTSIDE RECORDS SUMMARY | ~2020-05-23 | XMS | Encounter Summary ---
Demographics + + + | Address | [address] | | | [place] [address] | + + + | Home Phone [...] [place] | | | | | [address] | | + + + + + Care Team Providers + +------+ + | Care Siderographer Name | Role | Phone | + +------+ + | Adriano Patrick MD | PCP | | + +------+ + Encounter Details +--------+ + + + + | Date | Type | Department | Care Team | Description | +--------+ + + + + | 05/16/ | Orders Only | [facility] | Provider, | | | 2018 | | SYSTEM GENERIC OP | MD [address] | | | | | [address]VERSION [address] | [address] | | | | | [address] [place], [place] | [place] [address] | | | | | [address] | | | | | | [phone] | | | +--------+ + + + [...] | | | | | [place] [address] | | | | | | [phone] | | | | | | | | +--------+ + + + + | 08/28/ | Office | Cardiology | Dora De La Torre | | | 2020 | Visit | | [address] | | | | | | [address] | | | | | | [place] [address] | | | | | | [phone] | | | | | | | | +--------+ + + + + documented as of this encounter Visit Diagnoses Not on filedocumented in this encounter"
--- OUTSIDE RECORDS SUMMARY | ~2020-05-23 | XMS | Encounter Summary ---
Demographics + + + | Address | [address] | | | [place] [address] | + + + | Home Phone [...] [place] | | | | | [address] | | + + + + + Care Team Providers + +------+ + | Care Traffic Sign Erection Supervisor Name | Role | Phone | [...] [address] | [address] [place], [place] | (Primary Dx) | | | | [place], [place] | [address] | | | | | [address] | | | | | | [phone] | | | +--------+ + + + [...] [place] | | | | | | [place] [address] | | | | | | [phone] | | | | | | | | +--------+ + + + + | 08/28/ | Office | Cardiology | Dora De La Torre | | | 2019 | Visit | | [address] | | | | | | [address] | | | | | | [place] [address] | | | | | | [phone] | | | | | | | [...] + | MISCELLANEOUS LAB | | | [phone] | + +---------+ + + | MISCELANIOUS LAB | | | [phone] | + +---------+ + + documented in this encounter Visit Diagnoses + + | Diagnosis | + + | Status post lumbar spinal fusion - Primary Arthrodesis status | + + documented in this encounter"
--- OUTSIDE RECORDS SUMMARY | ~2020-05-23 | XMS | Encounter Summary ---
Demographics + + + | Address | [address] | | | [place] [address] | + + + | Home Phone [...] [place] | | | | | [address] | | + + + + + Care Team Providers + +------+ + | Care Finishing Powder Press Operator Name | Role | Phone [...] + | 07/01/ | Telephone | [facility] | Frandy Teresa, | Other (Surgery ) | | 2013 | | NEUROSURGERY [address] | DO [address] | | | | | [address] | [address] [place], [place] | | | | | [place], [place] | [id number] | | | | | [address] | | | | | | [phone] | | | +--------+ + + + [...] [address] | | | | | | [place] [address] | | | | | | [phone] | | | | | | | | +--------+ + + + + | 08/28/ | Office | Cardiology | Dora De La Torre | | | 2019 | Visit | | [address] | | | | | | [address] | | | | | | [place] [address] | | | | | | [phone] | | | | | | | | +--------+ + + + + documented as of this encounter Visit Diagnoses Not on filedocumented in this encounter"
--- OUTSIDE RECORDS SUMMARY | ~2020-05-23 | XMS | Encounter Summary ---
Demographics + + + | Address | [address] | | | [place] [address] | + + + | Home Phone [...] [place] | | | | | [address] | | + + + + + Care Team Providers + +------+ + | Care Territory Service Representative Name | Role | Phone | + +------+ + | Natalee Andersen NP | PCP | | + +------+ + Encounter Details +--------+ + + + + | Date | Type | Department | Care Team | Description | +--------+ + + + + | 06/25/ | Hospital | [facility] | Frandy Teresa, | Diabetes mellitus | | 2014 | Encounter | MED CTR OR INTRA OP | DO [address] | (HCC) (Primary Dx) | | | | [address] | [address] [place], [place] | | | | | [place], [place] | [address] | | | | | [address] | | | | | | [phone] | | | +--------+ + + + [...] + + + +---------+ + + | [place]-3 Fatty | Take 1,000 mg by | [...] this en counter H&P Notes [facility]APITO ABREU [facility] - 06/21/2014 12:00 AM PDT [...] - 06/26/2014 12:00 AM PDT NBASE SCAN [facility] - 06/12/2014 12:00 AM PDTElectronically signed by Mariah Schulte at 06/12 7:30 AM PDTONBASE SCAN [facility] - 06/11/2014 12:00 AM PDT documented in this encounter Miscellaneous Notes Miscellaneous - ONBASE SCAN [facility] - 06/26/2014 12:00 AM PDT [...] stenosis, lumbar region, without neurogenic claudication ). Packager Hand visit is in response to an electronic spiritual care consult request. Patient wa s resting comfortably in bed; she was attended by her mom and dad - both sate nearby and see med very attentive and supportive. Cindy is Yazdanism, attends [employer], and is strong in her rangel. She is excited about taking care of her back problem and fe els very secure in Dr. Teresa's care. She welcomed prayer, and expressed appreciation for [facility]. Follow up with regular visits, emotional and spiritual support. iscellaneo us - ONBASE SCAN [facility] - 06/25/2014 12:00 AM PDTElectronically [...] [place] | | | | | | [place] [address] | | | | | | [phone] | | | | | | | | +--------+ + + + + | 08/28/ | Office | Cardiology | Dora De La Torre | | | 2019 | Visit | | [address] | | | | | | [address] | | | | | | [place] [address] | | | | | | [phone] | | | | | | | [...] | | MEDICAL | | | | mL/min/1.73b2Ibbo than | | CENTER - | | [...] + | [facility] | [address] | [place] | [phone] | | [facility] | | [address] | | | - LABORATORY | | | | + + + + + | [facility] | [address] | [place] | | | [facility] | | [id number] | | | - LABORATORY [...] + | [facility] | [address] | [place] | [phone] | | [facility] | | [address] | | | - LABORATORY | | | | + + + + + | [facility] | [address] | [place], [place] | | | [facility] | | [address], [facility] | | [...] [address] | [place] | [phone] | | [facility] | | [address] | | | - LABORATORY | | | | + + + + + | [facility] | [address] | [place] | | | [facility] | | [id number] | | | - LABORATORY [...] | [facility] | | [address] | | | - BLOOD BANK | [...] + | [facility] | [address] | [place], [place] | [phone] | | [facility] | | [address] | | | - LABORATORY | | | | + + + + + | [facility] | [address] | [place], [place] | | | [facility] | | [id number] | | | - LABORATORY [...]
--- OUTSIDE RECORDS SUMMARY | ~2020-05-23 | XMS | Encounter Summary ---
Demographics + + + | Address | [address] | | | [place] [address] | + + + | Home Phone [...] [place], [place] | | | | | [address] | | + + + + + Care Team Providers + +------+ + | Care Laser Systems Engineer Name | Role | Phone | + +------+ + PCP | Unavailable | + +------+ + Encounter Details +--------+ + + + + | Date | Type | Department | Care Team | Description | +--------+ + + + + | 05/23/ | Hospital | [facility] | [place], | | | 2011 | Encounter | MED CTR XRAY [address] | MD [address] | | | | | [place] | [place] | | | | | [place] [address] | [address] | | | | | [phone] | | | +--------+ + + + [...] + + +---------+ + + | [place]-3 Fatty | Take 1,000 mg by | [...] [address] | | | | | | [place] [address] | | | | | | [phone] | | | | | | | | +--------+ + + + + | 08/28/ | Office | Cardiology | Dora De La Torre | | | 2019 | Visit | | [address] | | | | | | [address] | | | | | | [place] [address] | | | | | | [phone] | | | | | | | [...] [facility] | [place] | | [address] | [facility] | | LUMBAR SPINE MR [...] Transcribed Date/Time: | | | 05/23/2012 16:55 Elevator Operator Service: <Electronically Signed | | | by Adriano Anne MD> 05/23/12 9475 | | + + + + + | Procedure Note | + + | Juan, Rad Conversion - 11/30/2013 5:47 PM [facility] | | Diagnostic Imaging Department [address] [facility] | | LUMBAR SPINE MR WITHOUT CONTRAST, [...] 16:37 | |Transcribed Date/Time: 05/23/2012 16:55 | |Elevator Operator Service: | |<Electronically Signed by Adriano Anne MD> 05/23/12 1725 | + + + +---------+ + + | Performing | Address | City/State/Zipcode | Phone Number | | Organization | | | | + +---------+ + + | [place] | | | | | [facility] | | | | + +---------+ + + documented in this encounter Visit Diagnoses Not on filedocumented in this encounter"
--- OUTSIDE RECORDS SUMMARY | ~2020-05-23 | XMS | Encounter Summary ---
Demographics + + + | Address | [address] | | | [place] [address] | + + + | Home Phone [...] [place], [place] | | | | | [address] | | + + + + + Care Team Providers + +------+ + | Care Software Product Specialist Name | Role | Phone | + +------+ + PCP | Unavailable | + +------+ + Encounter Details +--------+ + + + + | Date | Type | Department | Care Team | Description | +--------+ + + + + | 07/23/ | Hospital | [facility] | | | | 1992 - | Encounter | MED CTR GENERIC PSY | | | | | | CONV DEPT [address] | | | | 07/28/ | | [place], | | | | 1992 | | [place] [address] | | | | | | [phone] | | | +--------+ + + + [...] [address] | | | | | | [place] [address] | | | | | | [phone] | | | | | | | | +--------+ + + + + | 08/28/ | Office | Cardiology | Dora De La Torre | | | 2019 | Visit | | [address] | | | | | | [address] [place] | | | | | | [place] [address] | | | | | | [phone] | | | | | | | | +--------+ + + + + documented as of this encounter Visit Diagnoses Not on filedocumented in this encounter"
--- OUTSIDE RECORDS SUMMARY | 2020-05-23 09:06 | XMS ---
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 No recent Security Events currently on file CRITERIA MET - 6 ED Visits in 6 Months - [facility] - Has Care Guidelines - PDMP - [facility] - 2 Visits in 30 Days CARE PROVIDERS WAYNE CAMARGO Internal Medicine 09/07/2019-Current PHONE: [phone] SMITH DOMINGUEZ Counselor: Mental Health 05/21/2020-Current PHONE: [phone] Kenny Palafox [facility] Current PHONE: [phone] ANGELICA MELVIN Internal Medicine: Pulmonary Disease 05/21/2020-Current PHONE: Unknown Jose Ag [facility] 01/31/2019-Current PHONE: [phone] Guidelines Source: [facility] [place] Guidelines Date: 03/13/2019 Care Coordination: Mental health services are being provided by [facility].\T\nbsp; Please contact [facility] with mental health concerns.\T\nbsp; [place]: \T\nbsp; [place]: [phone]. Care History Medical/Surgical 05/21/2020 [facility] Patient\T\#39;s therapist, Ashley Lopez, AIRCRAFT MACHINIST at [facility] has been advised of her overuse of the ED and discussed with her. Also, she has put in a Referral to have a CHW at [facility] work with her .\T\nbsp; Patient was just seen by Walk In provider, Ashley Sharp, yesterday, 05/20/2020 for skin issue.\T\ nbsp; Next PCP visit on 05/29/2020. 04/29/2020 [facility] Patient requested new PCP, not happy with Dr. Camargo.\T\nbsp; Patient aware of [facility] appointment 04/30/2020. 04/22/2020 [facility] Patient had follow up scheduled for 04/25/[address] Camargo,but was canceled by doctor.\T\nbsp; Left voice mail for patient to reschedule follow up visit. E.D. VISIT COUNT (12 MO.) [address] [facility] TOTAL 23 NOTE: Visits indicate total known visits. ED/UCC VISIT TRACKING (12 MO.) 05/23/2020 09:03 [facility] [place] TYPE: Emergency COMPLAINT: - CHEST PAIN 05/22/2020 11:22 [facility] [place] TYPE: Emergency COMPLAINT: - CHEST PAIN, SOB 05/21/2020 04:15 [facility] [place] TYPE: Emergency COMPLAINT: - LIGHT HEADED 05/13/2020 19:47 [facility] [place] TYPE: Emergency COMPLAINT: - MEDICAL CLEARANCE DIAGNOSES: - Allergy status to other drugs, medicaments and biological sub - Other half-way (current) drug therapy - termite control servicer (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 of 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 - Encounter for other general examination - Essential (primary) hypertension - Gastro-esophageal reflux disease without esophagitis - shelter (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 - Allergy status to sulfonamides status - Old myocardial infarction - Type 2 diabetes mellitus without complications 05/06/2020 06:05 [facility] [place] TYPE: Emergency COMPLAINT: - RAPID HEARTRATE DIAGNOSES: - Gastro-esophageal reflux disease without esophagitis - termite control servicer (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 of 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 - Allergy status to sulfonamides status - Essential (primary) hypertension - Allergy status to other drugs, medicaments and biological sub - Type 2 diabetes mellitus without complications - termite control servicer (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 - Palpitations - Old myocardial infarction - 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 control servicer (current) drug therapy 05/03/2020 19:00 [facility] [place] TYPE: Emergency COMPLAINT: - RAPID HEART RATE DIAGNOSES: - Allergy status to other drugs, medicaments and biological sub - Allergy status to sulfonamides status - Old myocardial infarction - Gastro-esophageal reflux disease without esophagitis - Essential (primary) hypertension - shelter (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 of 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 - Type 2 diabetes mellitus with hyperglycemia - shelter (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 - Palpitations - 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 control servicer (current) drug therapy 04/28/2020 18:43 [facility] [place] TYPE: Emergency COMPLAINT: - MEDICAL CLEARANCE DIAGNOSES: - Gastro-esophageal reflux disease without esophagitis - Allergy status to other drugs, medicaments and biological sub - Essential (primary) hypertension - Allergy status to sulfonamides status - Type 2 diabetes mellitus without complications - Other half-way (current) drug therapy - Hallucinations, unspecified - [...] status to sulfonamides status - 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 control servicer (current) drug therapy - Abrasion, left knee, [...] Gastro-esophageal reflux disease without esophagitis - Other half-way (current) drug therapy - Delusional disorders 10/22/2019 16:37 [facility] [place] TYPE: Emergency COMPLAINT: - MEDICAL CLEARANCE DIAGNOSES: - Type 2 diabetes mellitus without complications - Gastro-esophageal reflux disease without esophagitis - Old myocardial infarction - Other half-way (current) drug therapy - Essential (primary) hypertension - Allergy status to sulfonamides status - Allergy status to other drugs, medicaments and biological sub - Encounter for other general examination 10/20/2019 20:02 [facility] [place] TYPE: Emergency COMPLAINT: - MEDICAL CLEARANCE DIAGNOSES: - Gastro-esophageal reflux disease without esophagitis - Type 2 diabetes mellitus without complications - Encounter for other general examination - 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 control servicer (current) drug therapy - Old myocardial infarction [...] ischemic attack (TIA), and cere - Other half-way (current) drug therapy - Old myocardial infarction - Essential (primary) hypertension - Type 2 diabetes mellitus with hyperglycemia 10/11/2019 10:06 [facility] [place] TYPE: Emergency COMPLAINT: - MEDICAL CLEARANCE DIAGNOSES: - Essential (primary) hypertension - Delusional disorders - Old myocardial infarction - Delusional disorders - Allergy status to sulfonamides status - 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 control servicer (current) drug therapy - Schizoaffective disorder, unspecified 09/28/2019 13:19 [facility] [place] TYPE: Emergency COMPLAINT: - MEDICAL CLEARANCE DIAGNOSES: - Type 2 diabetes mellitus without complications - Allergy status to other drugs, medicaments and biological sub - Old myocardial infarction - 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 control servicer (current) drug therapy - Allergy status to sulfonamides status - Gastro-esophageal reflux disease without esophagitis - Essential (primary) hypertension - Suicidal ideations - Encounter for other administrative examinations 09/26/2019 10:06 [facility] [place] TYPE: Emergency COMPLAINT: - MEDICAL CLEARANCE DIAGNOSES: - 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 control servicer (current) drug therapy - Personal history of [...] disorder, unspecified - Suicidal ideations - termite control servicer (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 - Old myocardial infarction - Allergy status to sulfonamides status - Essential (primary) hypertension - 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 control servicer (current) drug therapy - Allergy status to other drugs, medicaments and biological sub 09/18/2019 13:53 [facility] [place] TYPE: Emergency COMPLAINT: - MEDICAL CLEARANCE DIAGNOSES: - Type 2 diabetes mellitus without complications - Schizoaffective disorder, unspecified - Suicidal ideations - Allergy status to other drugs, medicaments and biological sub - Gastro-esophageal reflux disease without esophagitis - Old myocardial infarction - shelter (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 - Essential (primary) hypertension - Rash and other nonspecific skin eruption - Allergy status to sulfonamides status - Other half-way (current) drug therapy 09/18/2019 10:33 [facility] [place] TYPE: Emergency COMPLAINT: - SUICIDAL THOUGHTS, HEARING VOICES DIAGNOSES: - Disorder of urea cycle metabolism, unspecified - 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 control servicer (current) drug therapy - Schizoaffective disorder, unspecified - Essential (primary) hypertension - Type 2 diabetes mellitus without complications - Gastro-esophageal reflux disease without esophagitis - Old myocardial infarction - Allergy status to sulfonamides status - Allergy status to other drugs, medicaments and biological sub - shelter (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 09/06/2019 11:40 [facility] [place] TYPE: Emergency COMPLAINT: - MEDICAL CLEARANCE DIAGNOSES: - Old myocardial infarction - Essential (primary) hypertension - Allergy status to sulfonamides status - Auditory hallucinations - 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 control servicer (current) drug therapy - Allergy status to other drugs, medicaments and biological sub - Type 2 diabetes mellitus without complications - Gastro-esophageal reflux disease without esophagitis Plus 3 More Visits INPATIENT VISIT TRACKING [...] sub - Paroxysmal atrial fibrillation - Other half-way (current) drug therapy - Allergy status to sulfonamides status [email or web address]
--- NOTE | 2020-05-23 16:39 | EKG ---
[facility] [address] [place], [place] [address] Signed Sinus rhythm with 1st degree AV block Left bundle branch block Abnormal ECG No previous ECGs available Confirmed by RONALD DIAZ DO ([id number]) on 05/23/2020 4:39:02 PM Electronically Signed By: RONALD DIAZ DO 05/23/20 1639 PATIENT NAME: BERNARDA ALARCON AIDE Electrocardiogram DATE OF : 55 PHYSICIAN: RONALD DIAZ DO REPORT #: [id number] REPORT IS CONFIDENTIAL AND NOT TO BE RELEASED WITHOUT AUTHORIZATION
== END 2020-05-23 10:42 | disposition home or self-care (01) ==
LOC: ED 09:02
DX: E11.65 Type 2 diabetes mellitus with hyperglycemia (principal); I10 Essential (primary) hypertension; K21.9 Gastro-esophageal reflux disease without esophagitis; F20.9 Schizophrenia, unspecified; I25.2 Old myocardial infarction; Z86.73 Personal history of transient ischemic attack (TIA), and cerebral infarction without residual deficits; Z88.2 Allergy status to sulfonamides; Z88.8 Allergy status to other drugs, medicaments and biological substances; Z79.899 Other long term (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; Z79.82 Long term (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
CPT/HCPCS: 80053; 83880; 84484; 85025; 93005; 93010; 99285-25

== ENCOUNTER 2020-05-25 12:31 | Emergency (ER) | payer MEDICARE ==
[~2020-05-25] VITALS: Ht 170.2 cm; Wt 90.7 kg
--- OUTSIDE RECORDS SUMMARY | ~2020-05-25 | XMS | Encounter Summary ---
Demographics + + + | Address | [address] | | | [place] [address] | + + + | Home Phone | | + + + | Preferred Language | Unknown | + + + | Marital Status | | + + + | Roman Catholic Affiliation | 1013 | + + + | Race | Unknown | + + + | Ethnic Group | Unknown | + + + Author + + + | Author | [facility] | | | and [place] | + + + | Organization | [facility] | | | and [place] | + + + | Address | Unknown | + + + | Phone | Unavailable | + + + Support + + + + + | Name | Relationship | Address | Phone | + + + + + | Araceli Sibley | ECON | [place] | | | | | [address] | | + + + + + Care Team Providers + +------+ + | Care Nurse Monitoring Name | Role | Phone | + [...] | | | | | | | [address] | | | | | | | Phone: | | | | | | | [phone] | | | | | | | Fax: | | | | | | | [phone] | | +--------+ + + + + + Reason for Visit + + + | Reason | Comments | + + + | Follow-up | 4 Week PO | + + + Encounter Details +--------+---------+ + + + | Date | Type | Department | Care Team | Description | +--------+---------+ + + + | 07/25/ | Office | [facility] | Frandy Teresa, | Lumbar spondylosis | | 2013 | Visit | NEUROSURGERY [address] | DO [address] | (Primary Dx); S/P | | | | [address] | [address] [place], [place] | lumbar fusion | | | | [place], [place] | [address] | | | | | [address] | | | | | | [phone] | | | +--------+---------+ + + + [...] + + + | Blood Pressure | 130/67 | 07/25/2014 3:10 PM | | | | | PDT | | + + + + + | Pulse | 60 | 07/25/2014 3:10 PM | | | | | PDT | | + + + + + | Temperature | - | - | | + + + + + | Respiratory Rate | 18 | 07/25/2014 3:10 PM | | | | | PDT | | + + + + + | Oxygen Saturation | - | - | | + + + + + | Inhaled Oxygen | - | - | | | Concentration | | | | + + + + + | Weight | 100.7 kg (222 lb) | 07/25/2014 3:10 PM | | | | | PDT | | + + + + + | Height | 170.2 cm (5' 7") | 07/25/2014 3:10 PM | | | | | PDT | | + + + + + | Body Mass Index | 34.77 | 07/25/2014 3:10 PM | | | | | PDT | | + + + + + documented in this encounter Patient Instructions Patient Instructions Frandy Teresa DO - 07/25/2014 3:48 PM PDTPlease start physical the rapy in 2 weeks. Please start weaning your brace in 2 weeks. Please follow-up with new x-rays of the lumbar spine in 2 months documented in this encounter Progress Notes Frandy Teresa DO - 07/25/2014 3:49 PM PDTFormatting of this note might be different fro m the original. Frandy Teresa DO [address] [facility] [address] [place] [address] FAX: NEUROSURGERY SURGICAL FOLLOW-UP CHIEF COMPLAINT: Chief Complaint Patient presents with Follow-up 4 Week PO HISTORY OF PRESENT ILLNESS: The patient is a 58 y.o. female that had a TLIF L5-S1 by me fo r back and leg pain around 4 weeks ago. She returns and overall is doing fairly well. The patient complains of continued surgical pain which is improving. She also has left leg pain that is improving. She is walking much more and better than before surgery. The patient has been walking as much as possible. She is still taking pain medications at this point. The patient has had no issues with her surgical site. CURRENT MEDICATIONS: Current Outpatient Prescriptions Medication Sig [...] to affected area twice daily as needed HYDROcodone-acetaminophen (NORCO) 10-325 mg per tablet Take [...] Take 15 mg by mouth nightl y. [place]-3 Fatty Acids (FISH OIL CONCENTRATE) 1000 MG CAPS Take 1,000 mg by mouth 3 times daily. omeprazole (PRILOSEC) 40 MG capsule Take 40 mg by mouth Daily. oxyCODONE-acetaminophen (PERCOCET) 10-325 mg per tablet Take 1-2 tablets by mouth every 4 hours as needed for Pain. 60 tablet 0 PARoxetine (PAXIL) 20 mg tablet Take 20 [...] not drink alcohol or use illicit drugs. INTERIM PHYSICAL EXAMINATION: Blood pressure 130/67, pulse 60, resp. rate 18, height 1.702 m (5' 7"), weight 100.699 kg ( 222 lb). Body mass index is 34.76 kg/(m^2). GENERAL: Cindy Arndt is in no [...] sensory examination improved from the preoperative exam. RADIOGRAPHIC REVIEW: The patient s postoperative x-rays show stable instrumentation and alignment and were rev iewed with the patient today. There have been no interval changes since the immediate posto perative films. Complete fusion has not yet occurred, but this is normal and would not be e xpected at this time. ASSESSMENT: S/P TLIF L5-S1: [...] PONV (postoperative nausea and vomiting) HTN (hypertension) PLAN: Overall, the patient is doing fairly well. I increased the patient s activities slowly now allowing 15 pound lifting and also will b egin the process of brace weaning. I would like the patient to advance slowly with this pro cess and discussed this at length during today's visit. I would also like the patient to co ntinue with postoperative rehabilitation and to advance with therapy as tolerated. I am hoping to see improvement over the coming weeks to months and plan to continue to foll ow this patient. I spent 30 minutes in visit with Cindy Arndt today with the majority of time spent counselling the patient on her recovery and coordinating her future care. The patient will follow-up with me in around 8 weeks for re-evaluation. ELECTRONICALLY SIGNED BY: Frandy Teresa DO, 07/25/2014 15:51 documented in this en counter Miscellaneous Notes Miscellaneous - ONBRUCE MEDINA - 07/25/2014 12:00 AM PDT documented in this encounter Plan of Treatment +--------+ [...] [address] | | | | | | [place] [address] | | | | | | [phone] | | | | | | | | +--------+ + + + + | 08/28/ | Office | Cardiology | Dora De La Torre | | | 2019 | Visit | | [address] | | | | | | [address] | | | | | | [place] [address] | | | | | | [phone] | | | | | | | | +--------+ + + + + + + +--------+ + + | Name | Type | Priori | Associated Diagnoses | Order Schedule | | | | ty | | | + + +--------+ + + | Ambulatory referral | Outpatient | Routin | Lumbar spondylosis | 1 Occurrences | | to Physical Therapy | Referral | e | S/P lumbar fusion | starting 07/25/2014 | | | | | | until 07/25/2015 | + + +--------+ + + documented as of this encounter Results XR Lumbar Spine 2 or 3 Vw (09/27/2014 10:18 AM PST) + + | Specimen | + + | | + + + + + | Narrative | Performed At | + + + | XR LUMBAR SPINE 2 OR 3 VW 09/27/2014 10:18 AM HISTORY: S/p lumbar | MISCELANIOUS | | fusion. COMPARISON: Multiple previous lumbar spine x-rays. | LAB | | FINDINGS: There is stable hardware for posterior fusion from L5 | | | through S1 with interbody hardware at L5-S1. The hardware remain | | | intact. Mild spondylosis is observed. There is mild leftward | | | curvature of the lumbar spine. Vertebral body height are preserved | | | with no evidence for compression fractures. Bone mineralization is | | | normal. Moderate disc narrowing is at L5-S1. Facet joints are intact. | | | There is no evidence for spondylolysis. Visualized ribs and pelvic | | | osseous structures show no acute findings. Cholecystectomy clips are | | | present. IMPRESSION - Stable posterior fusion from L5 through S1. | | | Dictated and Signed by: Wolf Calabrese MD Electronically | | | signed: 09/27/2014 5:11 PM | | + + + + + | Procedure Note | + + | Juan, Rad Results In - 09/27/2014 5:14 PM PST XR LUMBAR SPINE 2 OR 3 VW 09/27/2014 | | 10:18 AMHISTORY: S/p lumbar fusion.COMPARISON: Multiple previous lumbar spine | | x-rays.FINDINGS:There is stable hardware for posterior fusion from L5 through S1 with | | interbodyhardware at L5-S1. The hardware remain intact. Mild spondylosis is | | observed.There is mild leftward curvature of the lumbar spine. Vertebral body height | | arepreserved with no evidence for compression fractures. Bone mineralization isnormal. | | Moderate disc narrowing is at L5-S1. Facet joints are intact. There isno evidence for | | spondylolysis. Visualized ribs and pelvic osseous structuresshow no acute findings. | | Cholecystectomy clips are present.IMPRESSION -Stable posterior fusion from L5 through | | S1.Dictated and Signed by: Wolf Calabrese MD Electronically signed: 09/27/2014 5:11 PM | |preserved with no evidence for compression fractures. Bone mineralization is | |normal. Moderate disc narrowing is at L5-S1. Facet joints are intact. There is | |no evidence for spondylolysis. Visualized ribs and pelvic osseous structures | |show no acute findings. Cholecystectomy clips are present. | | | |IMPRESSION - | |Stable posterior fusion from L5 through S1. | | | |Dictated and Signed by: Wolf Calabrese MD | | Electronically signed: 09/27/2014 5:11 PM | + + + +---------+ + + | Performing | Address | City/State/Zipcode | Phone Number | | Organization | | | | + +---------+ + + | [facility] | | | [phone] | + +---------+ + + | [facility] | | | [phone] | + +---------+ + + documented in this encounter Visit Diagnoses + + | Diagnosis | + + | Lumbar spondylosis - Primary Lumbosacral spondylosis without myelopathy | + + | S/P lumbar fusion Arthrodesis status | + + documented in this encounter
--- OUTSIDE RECORDS SUMMARY | ~2020-05-25 | XMS | Encounter Summary ---
Demographics + + + | Address | [address] | | | [place] [address] | + + + | Home Phone | | + + + | Preferred Language | Unknown | + + + | Marital Status | | + + + | Scientology Affiliation | 1013 | + + + | Race | Unknown | + + + | Ethnic Group | Unknown | + + + Author + + + | Author | [facility] | | | and [place] | + + + | Organization | [facility] | | | and [place] | + + + | Address | Unknown | + + + | Phone | Unavailable | + + + Support + + + + + | Name | Relationship | Address | Phone | + + + + + | Araceli Sibley | ECON | [place] | | | | | [address] | | + + + + + Care Team Providers + +------+ + | Care Horses Or Mules Teamster Name | Role | Phone | + +------+ + | Adriano Patrick MD | PCP | | + +------+ + Reason for Visit +--------+--------+ + | Reason | Onset | Comments | | | Date | | +--------+--------+ + | Other | 08/14/ | Patient was anxious about urgent reports. | | | 2018 | | +--------+--------+ + Encounter Details +--------+ + + + + | Date | Type | Department | Care Team | Description | +--------+ + + + + | 08/14/ | Telephone | [facility] | Ashley Chávez | Other (Patient was | | 2018 | | CARDIOLOGY [place] Abad, Grain Receiver | anxious about urgent | | | | [address] | | reports. ) | | | | [place] | | | | | | [address] | | | | | | [phone] | | | +--------+ + + + [...] this encounter Miscellaneous Notes Telephone Encounter - Ashley Chávez, Grain Receiver - 08/14/2019 9:16 AM Seferino foster called me this morning and left a message which was very distressed, and very anxious. She said someone from our office called her and told her that she had a urgent report, and they said we would call her back within 24 hrs, and she didn't hear anything back. She was not feeling well at all today, she has fainted and collapsed twice over the weekend , and it was worse when she found out she had an urgent report. Patient says jese also called her, I asked Katharine, and she says she believes she called h er about the urgent report, and she doubts that jese would have called her. I called the patient back and I reassured her that Dr Peterson will be able to take a look at t he reports, and she needs to relax, and try not to make her anxiety worse. I told her I would keep her updated and I will call her back with Dr Peterson's readings. Patient was put at ease for the time being. Patient stated understanding. JDW:SUMMER CLERK-AAMA. [facility] umented in this encounter Plan of Treatment +--------+ + + + + | Date | Type | Specialty | Care Team | Description | +--------+ + + + + | 05/29/ | Procedure | Cardiology | Dora De La Torre | | | 2020 | visit | | [address] | | | | | | [address] | | | | | | [place] [address] | | | | | | [phone] | | | | | | | | +--------+ + + + + | 08/28/ | Office | Cardiology | Dora De La Torre | | | 2020 | Visit | | [address] | | | | | | [address] | | | | | | [place] [address] | | | | | | [phone] | | | | | | | | +--------+ + + + + documented as of this encounter Visit Diagnoses Not on filedocumented in this encounter"
--- OUTSIDE RECORDS SUMMARY | ~2020-05-25 | XMS | Encounter Summary ---
Demographics + + + | Address | [address] | | | [place] [address] | + + + | Home Phone | | + + + | Preferred Language | Unknown | + + + | Marital Status | | + + + | Latter-Day Affiliation | 1013 | + + + | Race | Unknown | + + + | Ethnic Group | Unknown | + + + Author + + + | Author | [facility] | | | and [place] | + + + | Organization | [facility] | | | and [place] | + + + | Address | Unknown | + + + | Phone | Unavailable | + + + Support + + + + + | Name | Relationship | Address | Phone | + + + + + | Araceli Sibley | ECON | [place] | | | | | [address] | | + + + + + Care Team Providers + +------+ + | Care Mobile Device Developer Name | Role | Phone | [...] | +--------+ + + + + | 08/16/ | Documentati | [facility] | Katharine Moncada, | Other (urgent | | 2019 | on | CARDIOLOGY [place] | Technologist | report) | | | | [address] | | | | | | [place] | | | | | | [address] | | | | | | [phone] | | | +--------+ + + + [...] encounter Progress Notes Katharine Moncada, Technologist - 08/16/2019 7:42 AM PDTReceived urgent report 08/16/19 Pt self triggered 08/15/19 at 19:12 100 BPM 30 day monitor was placed 08/09/19 [...] | | | | | [place] [address] | | | | | | [phone] | | | | | | | | +--------+ + + + + | 08/28/ | Office | Cardiology | Dora De La Torre | | | 2020 | Visit | | [address] | | | | | | [address] | | | | | | [place] [address] | | | | | | [phone] | | | | | | | | +--------+ + + + + documented as of this encounter Visit Diagnoses Not on filedocumented in this encounter"
--- OUTSIDE RECORDS SUMMARY | ~2020-05-25 | XMS | Encounter Summary ---
Demographics + + + | Address | [address] | | | [place] [address] | + + + | Home Phone [...] [place], [place] | | | | | [address] | | + + + + + Care Team Providers + +------+ + | Care Seo Engineer Name | Role | Phone | + +------+ + PCP | Unavailable | + +------+ + Encounter Details +--------+ + + + + | Date | Type | Department | Care Team | Description | +--------+ + + + + | 12/27/ | Hospital | [facility] | | | | 1997 | Encounter | MED CTR EMERGENCY | | | | | | [address] | | | | | | [place] | | | | | | [address] | | | | | | [phone] | | | +--------+ + + + [...] | | | | | [place] [address] | | | | | | [phone] | | | | | | | | +--------+ + + + + | 08/28/ | Office | Cardiology | Dora De La Torre | | | 2020 | Visit | | [address] | | | | | | [address] | | | | | | [place] [address] | | | | | | [phone] | | | | | | | | +--------+ + + + + documented as of this encounter Visit Diagnoses Not on filedocumented in this encounter"
--- OUTSIDE RECORDS SUMMARY | ~2020-05-25 | XMS | Encounter Summary ---
Demographics + + + | Address | [address] | | | [place] [address] | + + + | Home Phone | | + + + | Preferred Language | Unknown | + + + | Marital Status | | + + + | Denominational Affiliation | 1013 | + + + [...] [place] | | | | | [address] | | + + + + + Care Team Providers + +------+ + | Care Salesperson Shoes Name | Role | Phone | + +------+ + | Natalee Andersen NP | PCP | | + +------+ + Encounter Details +--------+ + + + + | Date | Type | Department | Care Team | Description | +--------+ + + + + | 06/25/ | Hospital | [facility] | Latricia Feliciano | | | 2014 | Encounter | MED CTR ACUTE | D, PT [address] | | | | | PHYSICAL THERAPY | [address]FTALIE [place] | | | | | [address] | [address] | | | | | [place] [address] | | | | | | [phone] | | | +--------+ + + + [...] + + + +---------+ + + | [place]-3 Fatty | Take 1,000 mg by | [...] | | | | | [place] [address] | | | | | | [phone] | | | | | | | | +--------+ + + + + | 08/28/ | Office | Cardiology | Dora De La Torre | | | 2020 | Visit | | [address] | | | | | | [address] | | | | | | [place] [address] | | | | | | [phone] | | | | | | | | +--------+ + + + + documented as of this encounter Visit Diagnoses Not on filedocumented in this encounter"
--- OUTSIDE RECORDS SUMMARY | ~2020-05-25 | XMS | Encounter Summary ---
Demographics + + + | Address | [address] | | | [place] [address] | + + + | Home Phone [...] [place], [place] | | | | | [address] | | + + + + + Care Team Providers + +------+ + | Care Chief Ii Dispatcher Name | Role | Phone | + +------+ + PCP | Unavailable | + +------+ + Encounter Details +--------+ + + + + | Date | Type | Department | Care Team | Description | +--------+ + + + + | 06/30/ | Hospital | [facility] | | | | 1999 - | Encounter | MED CTR GENERIC PSY | | | | | | CONV DEPT [address] | | | | 07/05/ | | [place], | | | | 1999 | | [place] [address] | | | | | | [phone] | | | +--------+ + + + [...] [address] | | | | | | [place] [address] | | | | | | [phone] | | | | | | | | +--------+ + + + + | 08/28/ | Office | Cardiology | Dora De La Torre | | | 2019 | Visit | | [address] | | | | | | [address] | | | | | | [place] [address] | | | | | | [phone] | | | | | | | | +--------+ + + + + documented as of this encounter Visit Diagnoses Not on filedocumented in this encounter"
--- OUTSIDE RECORDS SUMMARY | ~2020-05-25 | XMS | Encounter Summary ---
Demographics + + + | Address | [address] | | | [place] [address] | + + + | Home Phone [...] [place] | | | | | [address] | | + + + + + Care Team Providers + +------+ + | Care Railroad Car Letterer Name | Role | Phone | + [...] + + | 07/30/ | Telephone | [facility] | Ashley Chávez | Other (Patient | | 2019 | | CARDIOLOGY [place] Abad, Manager Market Development | mariela ) | | | | [address] | | | | | | [facility] [place] | | | | | | [address] | | | | | | [phone] | | | +--------+ + + + [...] Miscellaneous Notes Telephone Encounter - Ashley Chávez Manager Market Development - 07/30/2019 1:40 PM Shila norton to patient to advise of Dr. Peterson's notes. Patient stated understanding. BRODY:MANGO. el ephone Encounter - Ashley Chávez, Manager Market Development - 07/30/2019 1:40 PM PDT----- Mess age [...] Thanks ----- Message ----- From: Ashley Chávez Manager Market Development Sent: 07/30/2019 11:47 To: Desiree Peterson DO [...] [address] | | | | | | [place] [address] | | | | | | [phone] | | | | | | | | +--------+ + + + + | 08/28/ | Office | Cardiology | Dora De La Torre | | | 2019 | Visit | | [address] | | | | | | [address] | | | | | | [place] [address] | | | | | | [phone] | | | | | | | | +--------+ + + + + documented as of this encounter Visit Diagnoses Not on filedocumented in this encounter"
--- OUTSIDE RECORDS SUMMARY | ~2020-05-25 | XMS | Encounter Summary ---
Demographics + + + | Address | [address] | | | [place] [address] | + + + | Home Phone | | + + + | Preferred Language | Unknown | + + + | Marital Status | Single | + + + | Quaker Affiliation | Unknown | + + + [...] [place] | | | | | [address] | | + + + + + Care Team Providers + +------+ + | Care Records And Information Manager Name | Role | Phone | + +------+ + PCP | Unavailable | + +------+ + Encounter Details +--------+ + + + + | Date | Type | Department | Care Team | Description | +--------+ + + + + | 07/08/ | Procedure - | | Record, Operation [...] + + | OPERATION RECORD | | 07/08/1998 | | Results for this | | | | | | procedure are in the | | | | | | results section. | + +--------+ + + + documented in this encounter Results OPERATION RECORD (07/08/1998) + + | Transcriptions | + + | Interface, Wood Heel Flap Inserter In - 11/04/2006 3:03 AM PST | | [address] | | [place], [place] [address] [facility] | | ClinicsOPERATION RECORDMed Rec No.: [id number] Date: 07/08/98Name: Yris, | | PatriciaATTENDING SURGEON:Lazaro Tello M.D.Professor, OphthalmologyASSISTANT(S):Jose | | Doreen DawsonFellow, OphthalmologyPREOPERATIVE DIAGNOSIS: Complete obstruction | | of the left nasolacrimal duct.POSTOPERATIVE | | DIAGNOSIS(ES): Same.OPERATION(S) PERFORMED: Left dacryocystorhinostomy with | | silicone intubation and anterior | | ethmoidectomy.ANESTHESIA: Two percent Xylocaine with adrenalin and | | Wydase local infiltration on the left side; | | nasal packing of cocaine and adrenalin; | | monitored anesthesia care.SPECIMEN(S) REMOVED: See below.PROCEDURE: | | The patient was brought to the operating room | | and prepped and draped in the usual manner. Anesthesia | | was as listedabove. The skin incision was made 11 millimeters medial to the | | medialcanthal commissure and extended downward and outward for 18 millimeters. | | Thesuperficial fascia was picked up and cut with a curved iris scissors.Self-retaining | | skin retractor was put in place. The [place] elevators wereused to separate the | | orbicularis muscle down the periosteum. The periosteumwas incised below the anterior | | lacrimal crest, elevated above and below thecrest, the tear sac from the | | lacrimal fossa. Deep self-retainingretractor was replaced for the skin retractor. Nasal | | packing of cocaine andadrenalin placed at the beginning of the case was now removed. A | | Nicholas drillwas used to make a bony window between the tear sac and nasal mucosa. | | Therongeur and punch were used to remove the remaining bone from the top of thefundus to | | the bottom of the nasolacrimal duct. A large anterior ethmoidcell was deskeletonized | | and the bone was removed.Next, the 0 probe was placed through the lower canaliculus | | until it tentedthe medial sac medially. A stab incision was made over the probe. | | Curvediris scissors were used to enlarge the incision from the top of the fundusto the | | bottom of the nasolacrimal duct. A parallel and adjacent incisionwas made in the nasal | | mucosa. Both posterior flaps were cut flush with theposterior lacrimal crest. A | | one-snip was made on the upper and lowerpunctum. Silicone tubing swaged on Quickert | | probes were placed through thelacrimal excretory system. The first probe was placed | | through the lowercanaliculus until it was visualized beneath the anterior tear sac | | flap,grasped with a hemostat and pulled out through the nose. The other probewas placed | | through the upper canaliculus in the same manner. Probes wereremoved. Silicone was | | tied and allowed to retract. Instat was placedbetween the posterior and anterior tear | | sac flap. The anterior tear sac andnasal mucosal flap were closed with two #5-0 Vicryl. | | The periosteum wasclosed with running #6-0 Vicryl. The subcutaneous was closed with | | running#6-0 Vicryl, and the skin was closed with fast-absorbing #5-0 chromic. | | Milddressing was placed over the incision. The patient tolerated the procedurewell and | | was returned to the recovery room in good condition.There were no complications. | | Lazaro Tello M.D. Professor, | | OphthalmologyJLW/alsD: 07/08/98T: 07/08/98 3:08 Pcc: | |adrenalin placed at the beginning of the case was now removed. A Nicholas drill | |was used to make a bony window between the tear sac and nasal mucosa. The | |rongeur and punch were used to remove the remaining bone from the top of the | |fundus to the bottom of the nasolacrimal duct. A large anterior ethmoid | |cell was deskeletonized and the bone was removed. | | | |Next, the 0 probe was placed through the lower canaliculus until it tented | |the medial sac medially. A stab incision was made over the probe. Curved | |iris scissors were used to enlarge the incision from the top of the fundus | |to the bottom of the nasolacrimal duct. A parallel and adjacent incision | |was made in the nasal mucosa. Both posterior flaps were cut flush with the | |posterior lacrimal crest. A one-snip was made on the upper and lower | |punctum. Silicone tubing swaged on Quickert probes were placed through the | |lacrimal excretory system. The first probe was placed through the lower | |canaliculus until it was visualized beneath the anterior tear sac flap, | |grasped with a hemostat and pulled out through the nose. The other probe | |was placed through the upper canaliculus in the same manner. Probes were | |removed. Silicone was tied and allowed to retract. Instat was placed | |between the posterior and anterior tear sac flap. The anterior tear sac and | |nasal mucosal flap were closed with two #5-0 Vicryl. The periosteum was | |closed with running #6-0 Vicryl. The subcutaneous was closed with running | |#6-0 Vicryl, and the skin was closed with fast-absorbing #5-0 chromic. Mild | |dressing was placed over the incision. The patient tolerated the procedure | |well and was returned to the recovery room in good condition. | | | | | |There were no complications. | | | | Lazaro Tello M.D. | | Professor, Ophthalmology | |MEKHI/edgar | | | | P | | | |cc: | + + documented in this encounter Visit Diagnoses Not on filedocumented in this encounter"
--- OUTSIDE RECORDS SUMMARY | ~2020-05-25 | XMS | Encounter Summary ---
Demographics + + + | Address | [address] | | | [place] [address] | + + + | Home Phone [...] [place] | | | | | [address] | | + + + + + Care Team Providers + +------+ + | Care Security System Engineer Name | Role | Phone | + +------+ + | Adriano Patrick MD | PCP | | + +------+ + Reason for Visit +--------+--------+ + | Reason | Onset | Comments | | | Date | | +--------+--------+ + | Other | 08/30/ | Patient wants to take monitor off. | | | 2018 | | +--------+--------+ + Encounter Details +--------+ + + + + | Date | Type | Department | Care Team | Description | +--------+ + + + + | 08/30/ | Telephone | [facility] | Ashley Chávez | Other (Patient wants | | 2018 | | CARDIOLOGY [place] | Pollo, Brewery Representative | to take monitor | | | | [address] | | off. ) | | | | [address] | | | | | | [place] | | | | | | [address] | | | | | | [phone] | | | +--------+ + + + [...] Miscellaneous Notes Telephone Encounter - Ashley Chávez, Brewery Representative - 08/30/2019 9:19 AM Bertagutierrez t called because she wanted to know if she could take her monitor off. I spoke with Dr Peterson, and she says that patient is ok to take the monitor off. She has worn the monitor for 3 weeks now. Call made to patient to advise of Dr. Peterson's notes. Patient was thankful for the news. Patient stated understanding JDW:FISH CUTTING MACHINE OPERATOR-AAMA. [facility] umented in this encounter Plan of Treatment +--------+ + + + + | Date | Type | Specialty | Care Team | Description | +--------+ + + + + | 05/29/ | Procedure | Cardiology | Dora De La Torre | | 2019 | visit | | [address] | | | | | | [place] | | | | | | [address] | | | | | | [phone] | | | | | | | | +--------+ + + + + | 08/28/ | Office | Cardiology | Dora De La Torre | | | 2020 | Visit | | [address] | | | | | | [place] | | | | | | [address] | | | | | | [phone] | | | | | | | | +--------+ + + + + documented as of this encounter Visit Diagnoses Not on filedocumented in this encounter"
--- OUTSIDE RECORDS SUMMARY | ~2020-05-25 | XMS | Encounter Summary ---
Demographics + + + | Address | [address] | | | [place] [address] | + + + | Home Phone [...] [place] | | | | | [address] | | + + + + + Care Team Providers + +------+ + | Care Laboratory Worker Name | Role | Phone | [...] + + | 08/15/ | Documentati | [facility] | Katharine Moncada, | Other (urgent | | 2019 | on | CARDIOLOGY [place] | Technologist | report) | | | | [address] | | | | | | [place] | | | | | | [address] | | | | | | [phone] | | | +--------+ + + + [...] Progress Notes Katharine Moncada, Technologist - 08/15/2019 4:37 PM PDTReceived urgent report 08/15/19 Pt had a self triggered urgent report 08/15/19 at 09:19 84 BPM 30 day monitor was placed 08/09/19 [...] | | | | | [place] [address] | | | | | | [phone] | | | | | | | | +--------+ + + + + | 08/28/ | Office | Cardiology | Dora De La Torre | | | 2020 | Visit | | [address] | | | | | | [place] | | | | | | [place] [address] | | | | | | [phone] | | | | | | | | +--------+ + + + + documented as of this encounter Visit Diagnoses Not on filedocumented in this encounter"
--- OUTSIDE RECORDS SUMMARY | ~2020-05-25 | XMS | Encounter Summary ---
Demographics + + + | Address | [address] | | | [place] [address] | + + + | Home Phone [...] [place], [place] | | | | | [address] | | + + + + + Care Team Providers + +------+ + | Care Apartment Locator Name | Role | Phone | + +------+ + PCP | Unavailable | + +------+ + Encounter Details +--------+ + + + + | Date | Type | Department | Care Team | Description | +--------+ + + + + | 08/21/ | Hospital | [facility] | | | | 1996 | Encounter | [facility] | | | | | | [address] | | | | | | [place] | | | | | | [address] | | | | | | [phone] | | | +--------+ + + + [...] | | | | | [place] [address] | | | | | | [phone] | | | | | | | | +--------+ + + + + | 08/28/ | Office | Cardiology | Dora De La Torre | | | 2020 | Visit | | [address] | | | | | | [place] | | | | | | [place] [address] | | | | | | [phone] | | | | | | | | +--------+ + + + + documented as of this encounter Visit Diagnoses Not on filedocumented in this encounter"
--- OUTSIDE RECORDS SUMMARY | ~2020-05-25 | XMS | Encounter Summary ---
Demographics + + + | Address | [address] | | | [place] [address] | + + + | Home Phone [...] [place] | | | | | [address] | | + + + + + Care Team Providers + +------+ + | Care Economics Professor Name | Role | Phone | [...] + + | Closed | Specialty | Nutrition | Diagnoses | Must, | Julio César, | | | Services | | Iron | KAL Alcantar | Franca Talamantes, RD | | | Required | | deficiency | [address] | | | | | anemia Type | [address] [place] [address] | | | | | 2 diabetes | [place], [place] | [place], | | | | | mellitus, | [address] | [place] | | | | | controlled | Phone: | [phone] | | | | | (HCC) | [phone] | Phone: | | | | | History of | Fax: | [phone] | | | | | gastric | [phone] | Fax: | | | | | restrictive | | [phone] | | | | | surgery | | | | | | | Obesity, | | | | | | | Class III, | | | | | | | BMI 40-49.9 | | | | | | | (morbid | | | | | | | obesity) | | | | | | | (HCC) | | | +--------+ + + + + + Evaluate & Treat (Routine) +--------+ + + + + + | Status | Reason | Specialty | Diagnoses / | Referred By | Referred To | | | | | Procedures | Contact | Contact | +--------+ + + + + + | Closed | Specialty | Physical | Diagnoses | Must, | OP ST | | | Services | Therapy | Essential | KAL Alcantar | SYD[place] | | | Required | | hypertension | [address] [facility] | | | | | Lumbar | [address] [place] | [address] | | | | | radiculopath | [place], [place] | AVE | | | | | y Type 2 | [id number] | [place] | | | | | diabetes | Phone: | [phone] | | | | | mellitus, | [phone] | Phone: | | | | | controlled | Fax: | [phone] | | | | | (HCC) | [phone] | Fax: | | | | | Obesity, | | [phone] | | | | | Class III, | | | | | | | BMI 40-49.9 | | | | | | | (morbid | | | | | | | obesity) | | | | | | | (HCC) | | | +--------+ + + + + + Reason for Visit + + + | Reason | Comments | + + + | Establish Care | Presents to establish care. Former patient of Natalee Andersen | | | [facility] & Katharine BUCIO in [place]. | + + + | Other | Possible stroke January 2015. Is now seeing Dr. Newman, changed | | | to Plavix 5-7-15 from Aggrenox. | + + + | Diabetes | NIDDM. Checks blood sugars almost daily, fasting 94-112. | + + + | Muscle Pain | C/O generalized muscle pain. ? of possible myositis. Muscle | | | biopsy done. | + + + | Other | Last mammogram unknown, probably more than 5 yrs ago. Last pelvic | | | 2011. | + + + Encounter Details +--------+---------+ + + + | Date | Type | Department | Care Team | Description | +--------+---------+ + + + | 03/06/ | Office | [facility] | Katharine Cardona PA-C | Hypothyroidism due | | 2014 | Visit | MEDICINE [address] | to acquired atrophy | | | | [address] [place] [address], | [place] [address] | of thyroid (Primary | | | | [place] [address] | [phone] | Dx); Essential | | | | [phone] | | hypertension; Iron | | | | | | deficiency anemia; | | | | | | Schizoaffective | | | | | | disorder, bipolar | | | | | | type (HCC); | | | | | | Neuropathy; BACK | | | | | | PAIN, LUMBAR, WITH | | | | | | RADICULOPATHY; ROGERS | | | | | | on CPAP; Stroke | | | | | | ([facility]); Environmental | | | | | | and seasonal | | | | | | allergies; | | | | | | Gastroesophageal | | | | | | reflux disease | | | | | | without esophagitis; | | | | | | History of gastric | | | | | | restrictive surgery; | | | | | | Obesity, Class III, | | | | | | BMI 40-49.9 (morbid | | | | | | obesity) ([facility]); | | | | | | Type 2 diabetes | | | | | | mellitus, controlled | | | | | | ([facility]); Preventative | | | | | | health care | +--------+---------+ + + + Social History [...] + + + | Blood Pressure | 130/76 | 03/06/2015 9:06 AM | large cuff | | | | PDT | | + + + + + | Pulse | 57 | 03/06/2015 9:06 AM | | | | | PDT | | + + + + + | Temperature | 37.1 C (98.8 F) | 03/06/2015 9:06 AM | | | | | PDT | | + + + + + | Respiratory Rate | 22 | 03/06/2015 9:06 AM | | | | | PDT | | + + + + + | Oxygen Saturation | 97% | 03/06/2015 9:06 AM | room air | | | | PDT | | + + + + + | Inhaled Oxygen | - | - | | | Concentration | | | | + + + + + | Weight | 133.1 kg (293 lb 6.4 | 03/06/2015 9:06 AM | | | | oz) | PDT | | + + + + + | Height | 172.7 cm (5' 8") | 03/06/2015 9:06 AM | | | | | PDT | | + + + + + | Body Mass Index | 44.61 | 03/06/2015 9:06 AM | | | | | PDT | | + + + + + documented in this encounter Patient Instructions Patient Instructions Must, KAL Alcantar - 03/09/2015 7:58 PM PDTFormatting of this note migh t be different from the original. Ask [facility] if they think it might be helpful to switch your Paxil to one of the SNRIs or TCAs for their analgesic benefits in addition to antidepressant benefits. This is only to be a suggestion, because your mental health is very well controlled now, and we may not want t o make changes. PLAN: Hypothyroidism TSH, T4 now, get every 6 mo until stable. HTN Controlled. BP Readings from Last 3 Encounters: 03/06/15 130/76 02/27/15 120/65 02/26/15 140/62 With increase in HCTZ we need to check electrolytes. Refills given for Lisinopril and Atenolol. Did not refill HCTZ yet, still has refill (through 04/28), will wait to see how labs look. Madiha feldman consider switch to Aldactazide in the future. Iron Def Anemia Ferrous sulfate 325 bid. Take at bedtime (to avoid daytime nausea) and between lunch and dinner for best absorption (not with meals). Refer for colonoscopy to see if we can id a cause. Schizoaffective disorder Cont your meds as prescribed. F/U with [facility] as scheduled Neuropathy Continue gabapentin. May consider increase if pain is not controlled. May benefit from switching from Paxil to one of the SNRIs or TCAs for analgesic effects, ho manju, she is doing so well on her current regimen it may not be worth making any changes an d find alternate ways to deal with the pain. Would be worth discussing with [facility] Psych Back Pain Will refer to water therapy (aqua fitness) at [facility] as request ed. ROGERS on CPAP Continue nightly compliance Stroke Follow up with Dr Newman as planned Goal LDL <70. Need to check lipid panel. Environmental and Seasonal Allergies Stop Benadryl now. Start nightly Zyrtec (cetirizine). Start daily Flonase. Rx for Flonase given. If no significant improvement, will add on singulair GERD Continue Dexilant. Small meals, avoid lying down after eating, avoid spicy, caffeine, carbonation, citrus. Refill given today Hx/o gastric sleeve/obesity/DM2 Work on diet and exercise. Three healthy meals daily or smaller more frequent as long as healthy meals, do not skip me als. No snacking, if you must, healthy snacks only. Walk 30 min daily. Refer to nutritional counseling F/u in 2 months. Labs before hand. 10 :50 PM PDT documented in this encounter Progress Notes Katharine Cardona PA-C - 03/09/2015 7:10 PM PDTFormatting of this note might be different from t he original. 03/09/2015 Cindy Arndt 1955 ASSESSMENT 1. Hypothyroidism due to acquired atrophy of thyroid TSH T4, Free 2. Essential hypertension Comprehensive Metabolic Panel CBC with Differential Comprehensive Metabolic Panel Urinalysis with Microscopic with Culture if Indicated Ambulatory referral to Physical Therapy lisinopril (PRINIVIL, ZESTRIL) 10 mg tablet atenolol (TENORMIN) 25 mg tablet 3. Iron deficiency anemia Nutrition Services - External - AMB Referral Colonoscopy procedures 4. Schizoaffective disorder, bipolar type ([facility]) 5. Neuropathy Vitamin B-12 6. BACK PAIN, LUMBAR, WITH RADICULOPATHY Ambulatory referral to Physical Therapy 7. ROGERS on CPAP 8. Stroke ([facility]) 9. Environmental and seasonal allergies fluticasone (FLONASE) 50 mcg/nasal spray 10. Gastroesophageal reflux disease without esophagitis dexlansoprazole (DEXILANT) 60 mg D R capsule 11. History of gastric restrictive surgery Vitamin D, 25-Hydroxy Nutrition Services - External - AMB Referral 12. Obesity, Class III, BMI 40-49.9 (morbid obesity) ([facility]) Ambulatory referral to Physical Therapy Nutrition Services - External - AMB Referral 13. Type 2 diabetes mellitus, controlled ([facility]) Ambulatory referral to Physical Therapy Nutrition Services - External - AMB Referral metFORMIN (GLUCOPHAGE-XR) 500 mg 24 hr tablet 14. Preventative health care ANNUAL WELLNESS EXAM Medical and Family History Updated. Examination Performed. Current Providers: MD Lisandra/Dulce, PAC, Internal Med; Paty, Neurology; Zuleima [place], Psych; Tiki, Cardiology Detection of Cognitive Impairment: No 5-10 Year Screening Schedule: Colonoscopy 05/2012 (Zuleima Whitney), Pap and Mammo now, Annual PE/labs, Dexa at 65, List of Risk Factors: HTN, Irregular heartrate, Hyperlipidemia, DM2, Schizoaffective disord er, bipolar, Personalized Health Advice Including Weight Loss, Physical Activity, Smoking Cessation, Fall Prevention and Nutrition Discussed. PLAN: Hypothyroidism TSH, T4 now, get every 6 mo until stable. HTN Controlled. BP Readings from Last 3 Encounters: 03/06/15 130/76 02/27/15 120/65 02/26/15 140/62 With increase in HCTZ we need to check electrolytes. Refills given for Lisinopril and Atenolol. Did not refilled HCTZ yet, still has refill, will wait to see how labs look. May consider s witch to Aldactazide in the future if we need some potassium sparing effects. Iron Def Anemia Ferrous sulfate 325 bid. Take at bedtime (to avoid daytime nausea) and between lunch and dinner for best absorption (not with meals). Post menopausal. Cause of iron def? Refer for colonoscopy. Last colonoscopy 05/2012. Schizoaffective disorder Cont your meds as prescribed. [facility] Neuropathy Continue gabapentin. May consider increase if pain is not controlled. May benefit from switching from Paxil to one of the SNRIs or TCAs for analgesic effects, holly nunes, she is doing so well on her current MH regimen it may not be worth making any changes and look for alternate ways to deal with the pain. Would be worth discussing with [facility] professional. Back Pain Will refer to water therapy (aqua fitness) at [facility] as request ed. Cont home exercise, stretching, heat prn. ROGERS on CPAP Continue nightly compliance Stroke Follow up with Dr Newman as planned Goal LDL <70. Need lipid panel Environmental and Seasonal Allergies Stop Benadryl now. Start nightly Zyrtec (cetirizine). Start daily Flonase. Rx for Flonase given. If no significant improvement, will add on singulair GERD Continue Dexilant Refill given today Hx/o gastric sleeve/obesity/DM2 Work on diet and exercise. Three healthy meals daily, do not skip. No snacking or healthy snacks only. Walk 30 min daily. Refer to nutritional counseling to help with diet for DM2 as well as for wt loss. The risks and benefits, including potential side effects of medication changes, have been d iscussed with the patient. We agreed on implementing the current plan. The above note was dictated using [employer] voice recognition software. It may have not been proofread in entirety. Minor errors in grammar may occur. CHIEF COMPLAINT Chief Complaint Patient presents with Establish Care Presents to establish care. Former patient of Natalee BUCIO & Katharine BUCIO in [place]. Other Possible stroke January 2015. Is now seeing Dr. Newman, changed to Plavix 02-27-15 from [facility]. Diabetes NIDDM. Checks blood sugars almost daily, fasting 94-112. Muscle Pain C/O generalized muscle pain. ? of possible myositis. Muscle biopsy done. Other Last mammogram unknown, probably more than 5 yrs ago. Last pelvic 2011. HPI Cindy Arndt is a 59 y.o. female who presents to establish care with a Primary Care Provider in Internal Medicine and to get labs and refills. She presents with friend Heather. Cindy is here to establish care. She has a pertinent hx/o schizoaffective, bipolar type, disorder with significant PMH of DM2, HTN, HL, morbid obesity, ROGERS on CPAP, thyroid disorde r, arrythmia, gastric sleeve, GERD, migraines, low back pain s/p L5-S1 TLIF, with recent dx of myositis and recent stroke like sxs being followed by neurology. Cindy states she was dx with schizoaffective disorder, bipolar type 4 yrs ago at the age of 36 when she spent 9.5 mo in inpatient psychiatric care. They feel she was high functioni ng until she reached 36 yo, thus the late dx. She states she can look back now and state lazaro t she remembers having some visual hallucinations and hearing voices in her 20's but states she never mentioned it as she was afraid they would take her kids away. She finally broke do wn with delusions and hallucinations, both visual and auditory, at 36. 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 She is now very well controlled on Saphris, Depakote, and Paxi l. She is followed by [facility] in [place]. She has DM2 that is well controlled with diet and exercise. She takes Metformin 500 mg 24 h r tablet and watches her diet. She walks 1 mi/day, 4 to 6x/wk. States her FBS runs 94 to 112 , her preprandial BS runs 94 to 100. She just switched to qd BS checks about 10 d ago. Alway s compliant. No polydipsia or polyuria. No hypoglycemia. HTN is also well controlled on atenolol 25 mg qd, lisinopril 10 mg and more recently HCTZ 2 5 mg bid. Has a hx/o irregular heartbeat, CP and palpitations and has been worked up by steve rowe, Zuleima Champion. More recently, she presented to ED with stroke like sxs of numb and weak right side. She wa s worked up for TIA/stroke with MRI, carotid US, CTA head and neck. She is now being followe d by Dr Newman. Since she has multiple stroke risk factors, he favors aggressive targetin g, to include lowering LDL to <70. He switched her from Aggrenox to Plavix and asked her to monitor her BP and increase her exercise. Additionally, she was recently dx with myositis, based on diffuse muscle aching, elevated E SR, CRP and CPK. Had a muscle bx but results are not available. Paty is also following up on this. He is concerned that the muscle bx results with not accurately reflect disease p rocess due to possible neurogenic muscle changes resulting from prior radiculopathy. States she was taking both prednisone and diclofenac for the muscle pain, which really help ed, but is no longer taking them. She has hx/o low back pain with radiculopathy, degenerative disc disease of the lumbar spin e, spinal stenosis of lumbar spine, had multiple back injx which provided no relief so had b ack surgery, L5-S1 transforaminal lumbar interbody fusion, 06/2014. States she has numbness of feet since her back surgery. Started on gabapentin 2 mo ago. Pro sonal some relief. Has nodular thyroid disorder. Had 6 or 7 nodules on her thyroid initially, now only has 2. Her TSH levels fluctuate so she was told to have her TSH checked q6mo. She has ROGERS, on CPAP, and is compliant. Has dyshidrotic dermatitis for which she uses lidex with moderate relief. Has GERD for which she takes Dexilant with good relief. Has struggled with wt all her life. Had gastric sleeve placed 05/2013. Told her she would li rowdy only lose 50 lbs, which she has. Pleased as she was able to decrease her BP meds and DM 2 meds. Also has iron def anemia, new this winter. Taking iron bid with her meals. States she has b ad seasonal/environmental allergies. Taking Benadryl with minimal relief. Only other concern is that she was told her VitB12 was to high. She has d/c Vit B12. REVIEW OF SYSTEMS Positive for: Weight gain of >10 lbs Trying to lose wt Wears eye glasses Dry/burning eyes, due to allergies Poor vision due to needing a vision exam and new Rx Tinnitus Congestion due to allergies Hayfever Chest pain/heart palpitations, worked up by cardiology Swelling of ankles, now on HCTZ bid SOB with exertion Constipation >2x/mo Has gastric sleeve - n/v asso Hemorrhoids Heartburn Urinary incontinence Painful back and joints Anemia, new onset N/T, muscle weakness Migraines Remainder of 12-point review of systems negative. A complete review of systems documented on the patient questionnaire was discussed in reji mccarthy and scanned to the EMR. PAST MEDICAL HISTORY Patient Active Problem List Diagnosis LUMBAR DISC DISPLACEMENT HYPERTENSION HYPOTHYROIDISM GERD BACK PAIN, LUMBAR, WITH RADICULOPATHY IMPAIRED FASTING GLUCOSE SCHIZOAFFECTIVE DISORDER, BIPOLAR KNEE PAIN, BILATERAL DEGENERATIVE DISC DISEASE, LUMBAR SPINE BACK PAIN, LUMBAR SOMATIC DYSFUNCTION, SPINE, SACRAL OBSTRUCTIVE SLEEP APNEA HYPERLIPIDEMIA SINUSITIS Type 2 diabetes mellitus, controlled OSTEOARTHRITIS, KNEES, BILATERAL DISTURBANCE OF SKIN SENSATION SPINAL STENOSIS, LUMBAR Obesity, Class III, BMI 40-49.9 (morbid obesity) Neuropathy Stomach ulcer Gastric reflux Anxiety Anemia Irregular heartbeat Depression Migraine Schizophrenia Neuropathy Sleep apnea Stroke Thyroid disease Schizoaffective disorder, bipolar type ROGERS on CPAP Past Medical History Diagnosis Date GERD (gastroesophageal [...] HTN (hypertension) Sprain of ankle and foot Neuropathy Sleep apnea Stroke (HCC) Thyroid disease SURGICAL HISTORY Past Surgical History Procedure Laterality Date Jorje placement tibia 2001 RIGHT Cholecystectomy 1998 Mastectomy, partial 1996 lt breast, for abcesses Hysterectomy 1992 [facility], Tonsillectomy and adenoidectomy Dilatation & curretage 1973 Gastric sleeve 2013 Lumbar laminectomy 07/02/2014 MIS L5-S1 TRANSFORAMINAL LUMBAR INTERBODY FUSION ; Laterality: N/A; Surgeon: Frandy castellanos DO; Location: [facility] MAIN OR SOCIAL HISTORY History Social History Marital Status: Spouse Name: N/A Number of Children: 2 Years of Education: 13 Occupational History DISABLED Social History Main Topics Smoking status: Never Smoker Smokeless tobacco: Never Used Alcohol Use: No Drug Use: No Sexual Activity: No Other Topics Concern None Social History Narrative FAMILY HISTORY Family History Problem Relation Age of Onset High blood pressure Mother High blood pressure Father Cancer Sister cervical Arthritis Mother Thyroid disease Mother Heart disease Mother Other (See Comment) Father lung disease Mental illness Father Diabetes Father Stroke Father Heart disease Father CURRENT MEDICATIONS Current Outpatient Rx Name Route Sig Dispense Refill asenapine (SAPHRIS) 10 mg SL tablet Sublingual Place 10 mg under the tongue nightly. atenolol (TENORMIN) 25 mg tablet Oral Take 1 tablet by mouth nightly. 90 tablet 3 CALCIUM CITRATE PO Oral Take 500 mg by mouth Daily. Cholecalciferol (VITAMIN D-3) 67637 units CAPS Oral Take 50,000 Units by mouth Once a week. clopidogrel (PLAVIX) 75 mg tablet Oral Take 1 tablet by mouth Daily. 30 tablet 3 dexlansoprazole (DEXILANT) [address] capsule Oral Take 1 capsule by mouth Daily. 90 capsule 3 Digestive Enzymes (PAPAYA ENZYME PO) Oral Take 2 capsules by mouth 3 times daily. divalproex (DEPAKOTE) 500 mg EC tablet 1250mg by mouth at bedtime fluocinonide (LIDEX) 0.05 % ointment Apply to affected area twice daily as needed fluticasone (FLONASE) 50 mcg/nasal spray Nasal 1 spray by Nasal route Daily. 16 g 11 gabapentin (NEURONTIN) 300 mg capsule Oral Take 1 capsule by mouth 3 times daily. 90 capsule 2 hydrochlorothiazide 25 mg tablet Oral Take 1 tablet by mouth 2 times daily. 30 tablet 1 HYDROcodone-acetaminophen (NORCO) 10-325 mg per tablet Oral Take 1-2 tablets by mouth every 4 hours as needed for Pain. 60 tablet 0 levothyroxine (SYNTHROID, LEVOTHROID) 112 mcg tablet Oral Take 112 mcg by mouth every morning (before breakfast). lisinopril (PRINIVIL, ZESTRIL) 10 mg tablet Oral Take 1 tablet by mouth Daily. 90 tablet 3 Magnesium 250 MG TABS Oral Take 2 tablets by mouth nightly. Melatonin [address] 5 mg under the tongue nightly. metFORMIN (GLUCOPHAGE-XR) 500 mg 24 hr tablet Oral Take 1 tablet by mouth daily (with breakfast). 90 tablet 3 Multiple Vitamins-Minerals (CENTRUM SILVER PO) Oral Take 1 tablet by mouth Daily. OLANZapine (ZYPREXA) 10 MG tablet Oral Take 10 mg by mouth nightly. [place]-3 Fatty Acids (FISH OIL CONCENTRATE) 1000 MG CAPS Oral Take 1,000 mg by mouth 2 times daily. 60 each 5 oxyCODONE-acetaminophen (PERCOCET) 10-325 mg per tablet Oral Take 1 tablet by mouth every 12 hours as needed for Pain. PARoxetine (PAXIL) 20 mg tablet Oral Take 20 mg by mouth Daily. tocopherol (VITAMIN E) 400 units capsule Oral Take 400 Units by mouth 2 times daily. UNCODED MEDICATION Diagnosis: Obstructive Sleep Apnea ICD-9: 327.23 Length of Need: 99 Months 1 Device 0 CPAP Mask, Headgear, Chinstrap, Cushions, Nasal Pi ... ALLERGIES Allergies Allergen Reactions Erythromycin Nausea And Vomiting Fluoxetine Other (See Comments) "mind racing" Haloperidol Other (See Comments) "mind racing" Prochlorperazine Maleate Other (See Comments) Skin crawling/agitation Promethazine Hcl Other (See Comments) Skin crawling/agitation Topamax Other (See Comments) "mind racing and dellusions" Demerol Nausea And Vomiting Duloxetine Muscle weakness, profuse sweating Sulfa Antibiotics Rash PHYSICAL EXAM VITAL SIGNS: BP 130/76 | Pulse 57 | Temp(Src) 37.1 C (98.8 F) (Oral) | Resp 22 | Ht 1.7 27 m (5' 8") | Wt 133.085 kg (293 lb 6.4 oz) | BMI 44.62 kg/m2 | SpO2 97% | ? N o Constitutional: Well appearing, well developed, well nourished and in no apparent distress, alert, cooperative and smiling. HENT: Normocephalic, Atraumatic, no sinus tenderness, Bilateral external ears normal, TMs n ormal, nares clear, mouth with moist mucous membranes. Pharynx without exudates. Mallampat i 1 airway. Eyes: PERRLA, EOMI, anicteric, pink conjunctiva , No discharge. Funduscopic exam deferred. Neck: No tenderness, No thyromegaly or carotid bruit. Lymphatic: No lymphadenopathy noted. Thorax & Lungs: Clear to auscultation and percussion without rales or wheezes. respirations unlabored, No chest tenderness. Cardiovascular: Normal heart rate, Normal rhythm, No murmurs, No rubs, No gallops. Normal JVP. Abdomen: Obese with active bowel sounds, Soft, No tenderness, No masses, No hepatosplenomeg francisco javier. Skin: Warm, Dry, No erythema, No rash. Normal turgor. Extremities: Intact distal pulses, No femoral bruits, No edema, No tenderness, No cyanosis, No clubbing. Psychiatric: Alert, oriented to person, place, and time. Appropriate mood and affect, amira l behavior, speech, dress, motor activity, and thought processes. Hospital Outpatient Visit on 03/06/2015 Component Date Value Ref Range Status NA 03/06/2015 131* 136-149 mmol/L Final K 03/06/2015 4.2 3.5-5.1 mmol/L Final CL 03/06/2015 92* 98-109 mmol/L Final CO2 03/06/2015 31 24-31 mmol/L Final ANION GAP 03/06/2015 8 3-16 mmol/L Final GLUCOSE 03/06/2015 103 70-109 mg/dL Final BUN 03/06/2015 12 7-18 mg/dL Final Creatinine, Serum/Plasma 03/06/2015 0.66 0.60-1.30 mg/dL Final eGFR if not 03/06/2015 >60 >=60 mL/min/1.73m2 Final GLOMERULAR FILTRATION RATE,ESTIMATED mL/min/1.73m2 Less than 60 Chronic kidney disease,if found over a 3-month period. Less than 15 Kidney failure For Americans,multiply the calculated GFR by 1.21. CALCIUM 03/06/2015 9.6 8.3-10.5 mg/dL Final ALBUMIN 03/06/2015 4.1 3.2-5.0 g/dL Final BILIRUBIN TOTAL 03/06/2015 0.3 0.1-1.5 mg/dL Final Total protein 03/06/2015 6.6 6.0-7.8 g/dL Final AST 03/06/2015 29 10-42 U/L Final ALT 03/06/2015 27 6-45 U/L Final ALK PHOS 03/06/2015 72 40-110 U/L Final GLOBULIN 03/06/2015 2.5 Final Albumin/Globulin ratio 03/06/2015 1.6 Final BUN/CREA 03/06/2015 18.2 Final Admission on 02/26/2015, Discharged on 02/26/2015 Component Date Value Ref Range Status WBC 02/26/2015 7.7 4.0-11.0 K/uL Final RBC 02/26/2015 4.21 3.70-5.20 M/uL Final Hgb 02/26/2015 11.0* 11.5-16.0 g/dL Final Hct 02/26/2015 34.2 34.0-47.0 % Final MCV 02/26/2015 81.2* 83.0-101.0 fL Final MCH 02/26/2015 26.1* 28.0-35.0 pg Final MCHC 02/26/2015 32.2 32.0-36.0 g/dL Final RDW 02/26/2015 16.1* <15.0 % Final Platelet Count 02/26/2015 304 140-440 K/uL Final MPV 02/26/2015 7.7 Final % Neutrophils 02/26/2015 59.5 45.0-82.0 % Final % Lymphocytes 02/26/2015 31.2 20.0-45.0 % Final % Monocytes 02/26/2015 7.2 4.0-12.0 % Final % Eosinophils 02/26/2015 1.8 0.0-5.0 % Final % Basophils 02/26/2015 0.3 0.0-1.0 % Final Absolute Neutrophils 02/26/2015 4.60 1.80-8.50 K/uL Final Absolute Lymphocytes 02/26/2015 2.40 0.60-3.20 K/uL Final Absolute Monocytes 02/26/2015 0.60 0.00-1.00 K/uL Final Absolute Eosinophils 02/26/2015 0.10 0.00-0.40 K/uL Final Absolute Basophils 02/26/2015 0.00 0.00-0.10 K/uL Final NA 02/26/2015 127* 136-149 mmol/L Final K 02/26/2015 3.6 3.5-5.1 mmol/L Final CL 02/26/2015 93* 98-109 mmol/L Final CO2 02/26/2015 28 24-31 mmol/L Final ANION GAP 02/26/2015 6 3-16 mmol/L Final GLUCOSE 02/26/2015 111* 70-109 mg/dL Final BUN 02/26/2015 13 7-18 mg/dL Final Creatinine, Serum/Plasma 02/26/2015 0.64 0.60-1.30 mg/dL Final eGFR if not 02/26/2015 >60 >=60 mL/min/1.73m2 Final GLOMERULAR FILTRATION RATE,ESTIMATED mL/min/1.73m2 Less than 60 Chronic kidney disease,if found over a 3-month period. Less than 15 Kidney failure For Americans,multiply the calculated GFR by 1.21. CALCIUM 02/26/2015 9.1 8.3-10.5 mg/dL Final ALBUMIN 02/26/2015 3.7 3.2-5.0 g/dL Final BILIRUBIN TOTAL 02/26/2015 0.5 0.1-1.5 mg/dL Final Total protein 02/26/2015 5.8* 6.0-7.8 g/dL Final AST 02/26/2015 24 10-42 U/L Final ALT 02/26/2015 23 6-45 U/L Final ALK PHOS 02/26/2015 69 40-110 U/L Final GLOBULIN 02/26/2015 2.1 Final Albumin/Globulin ratio 02/26/2015 1.8 Final BUN/CREA 02/26/2015 20.3 Final Katharine Cardona PA-C documented in this encou nter Plan of Treatment +--------+ + + + + | Date | Type | Specialty | Care Team | Description | +--------+ + + + + | 05/29/ | Procedure | Cardiology | BrittDora | | | 2019 | visit | | [address] | | | | | | [address] | | | | | | [place] [address] | | | | | | [phone] | | | | | | | | +--------+ + + + + | 08/28/ | Office | Cardiology | Dora De La Torre | | | 2019 | Visit | | [address] | | | | | | [address] | | | | | | [place] [address] | | | | | | [phone] | | | | | | | | +--------+ + + + + + + +--------+ + + | Name | Type | Priori | Associated Diagnoses | Order Schedule | | | | ty | | | + + +--------+ + + | CBC with | Lab | Routin | Essential | Expected: | | Differential | | e | hypertension | 04/04/2015, Expires: | | | | | | 03/05/2016 | + + +--------+ + + | Comprehensive | Lab | Routin | Essential | Expected: | | Metabolic Panel | | e | hypertension | 04/04/2015, Expires: | | | | | | 03/05/2016 | + + +--------+ + + | TSH | Lab | Routin | Hypothyroidism due | Expected: | | | | e | to acquired atrophy | 04/04/2015, Expires: | | | | | of thyroid | 03/06/2016 | + + +--------+ + + | T4, Free | Lab | Routin | Hypothyroidism due | Expected: | | | | e | to acquired atrophy | 04/04/2015, Expires: | | | | | of thyroid | 03/06/2016 | + + +--------+ + + | Urinalysis with | Lab | Routin | Essential | Expected: | | Microscopic with | | e | hypertension | 04/04/2015, Expires: | | Culture if Indicated | | | | 03/05/2016 | + + +--------+ + + | Vitamin B-12 | Lab | Routin | Neuropathy | Expected: | | | | e | | 04/04/2015, Expires: | | | | | | 03/06/2016 | + + +--------+ + + | Vitamin D, | Lab | Routin | History of gastric | Expected: | | 25-Hydroxy | | e | restrictive surgery | 04/04/2015, Expires: | | | | | | 03/06/2016 | + + +--------+ + + | Colonoscopy | Procedures | Routin | Iron deficiency | 1 Occurrences | | procedures | | e | anemia | starting 03/06/2015 | | | | | | until 03/06/2016 | + + +--------+ + + + + +--------+ + + | Name | Type | Priori | Associated Diagnoses | Order Schedule | | | | ty | | | + + +--------+ + + | Ambulatory referral | Outpatient | Routin | Essential | Ordered: 03/06/2015 | | to Physical Therapy | Referral | e | hypertension BACK | | | | | | PAIN, LUMBAR, WITH | | | | | | RADICULOPATHY Type | | | | | | 2 diabetes mellitus, | | | | | | controlled ([facility]) | | | | | | Obesity, Class III, | | | | | | BMI 40-49.9 (morbid | | | | | | obesity) ([facility]) | | + + +--------+ + + | Nutrition Services - | Outpatient | Routin | Iron deficiency | Ordered: 03/06/2015 | | External - AMB | Referral | e | anemia Type 2 | | | Referral | | | diabetes mellitus, | | | | | | controlled (HCC) | | | | | | History of gastric | | | | | | restrictive surgery | | | | | | Obesity, Class III, | | | | | | BMI 40-49.9 (morbid | | | | | | obesity) ([facility]) | | + + +--------+ + + documented as of this encounter Results Comprehensive Metabolic Panel (03/06/2015 [...] | non- | FILTRATION | mL/min/1.73m2 | [facility] | | | [place] | RATE,ESTIMATED | | MEDICAL | | | | mL/min/1.10n0Zmjg than | | CENTER - | | [...] | | | | mg/dL | [facility] | | | | | | MEDICAL | | | | | | CENTER - | | | | | | LABORATORY | | + + + + + + | Albumin | 4.1 | 3.2 - 5.0 g/dL | [facility] [address] | [place] | [phone] | | [facility] | | [address] | | | - LABORATORY | | | | + + + + + documented in this encounter Visit Diagnoses + + | Diagnosis | + + | Hypothyroidism due to acquired atrophy of thyroid - Primary | + + | Essential hypertension Unspecified essential hypertension | + + | Iron deficiency anemia Iron deficiency anemia, unspecified | + + | Schizoaffective disorder, bipolar type (HCC) Schizoaffective disorder, unspecified | | condition | + + | Neuropathy Mononeuritis of unspecified site | + + | BACK PAIN, LUMBAR, WITH RADICULOPATHY Thoracic or lumbosacral neuritis or | | radiculitis, unspecified | + + | ROGERS on CPAP Obstructive sleep apnea (adult) (pediatric) | + + | Stroke (HCC) Unspecified cerebral artery occlusion with cerebral infarction | + + | Environmental and seasonal allergies | + + | Gastroesophageal reflux disease without esophagitis Esophageal reflux | + + | History of gastric restrictive surgery | + + | Obesity, Class III, BMI 40-49.9 (morbid obesity) (HCC) Morbid obesity | + + | Type 2 diabetes mellitus, controlled (HCC) Type II or unspecified type diabetes | | mellitus without mention of complication, not stated as uncontrolled | + + | Preventative health care Routine general medical examination at a health care | | facility | + + documented in this encounter
--- OUTSIDE RECORDS SUMMARY | ~2020-05-25 | XMS | Encounter Summary ---
Demographics + + + | Address | [address] | | | [place] [address] | + + + | Home Phone [...] [place] | | | | | [address] | | + + + + + Care Team Providers + +------+ + | Care Front Desk Person Name | Role | Phone | [...] | | | spondylolist | | [address] | | | | | hesis | | [place], | | | | | Spinal | | [place] [address] | | | | | stenosis, | | Phone: | | | | | lumbar | | [phone] | | | | | region, | | Fax: | | | | | without | | [phone] | | | | | neurogenic | [...] | | | | | | | [place] ARTHDS[place] | | | | | | [...] | | | | | | [place] | | | | | | | [...] | | | | | | SEG [place] | | | | | | | [...] + + | 07/02/ | Surgery | [facility] | Frandy Teresa, | MIS L5-S1 | | 2013 | | MED CTR OR INTRA OP | DO [address] | TRANSFORAMINAL | | | | [address] | [address] [place], [place] | LUMBAR INTERBODY | | | | [place] | [id number] | FUSION | | | | [address] | | | | | | [phone] | | | +--------+---------+ + + + [...] might be different fro m the original. [facility] DISCHARGE SUMMARY PATIENT NAME: Cindy Arndt [...] Stable for discharge to SNF. DISPOSITION: SNF ([facility]) DISCHARGE MEDICATIONS Medications prior to [...] Take 15 mg by mouth nightl y. Selmer-3 Fatty Acids (FISH OIL CONCENTRATE) 1000 MG [...] + + + +---------+ + + | Selmer-3 Fatty | Take 1,000 mg by | [...] Lynn PA-C - 07/04/2014 7:43 AM PDT [facility] PROGRESS NOTE Pt. Name/Age/: Cindy Arndt 58 y.o. 1955 Med. Record Number: [id number] Date of admission: 07/02/2014 Subjective: The patient [...] home medications. D/C plan: Home tomorrow with [facility]. D/c mari drain and riley cath today. D/c house admin. Patient Active Problem List Diagnosis LUMBAR DISC [...] signed by: Chris Nicole, 07/04/2014 7:45 [facility] Chris Lynn PA-C - 07/03/2014 7:13 AM PDT . [facility] PROGRESS NOTE Pt. Name/Age/: Cindy Arndt 58 y.o. 1955 Med. Record Number: [id number] Date of admission: 07/02/2014 Subjective: The patient [...] Electronically signed by: Chris Nicole, 07/03/2014 7:13 [facility] on Smith, KRIS - 07/03/2014 6:50 AM [...] signed by: Frandy Teresa DO, 07/02/2014 11:15 [facility] signed by Frandy Teresa DO at 06/2014 11:15 AM PDTDreyFrandy tim DO - 07/02/2014 11:15 AM [id number] [facility], [address] [place] [id number] FAX: NEUROSURGERY HISTORY AND PHYSICAL EXAMINATION CHIEF [...] Take 15 mg by mouth nigh tlgaston. Selmer-3 Fatty Acids (FISH OIL CONCENTRATE) 1000 MG [...] has no apparent deficits with short or termite technician memory. CRANIAL NERVES: II: Acuity is intact. [...] Intrinsics 5 5 Ulnar Intrinsics 5 5 Lsw Strength 5 5 Hip Flexion 5 4* [...] documented in this en counter Procedure Notes [facility] - 07/12/2014 12:00 AM PDT 14 1:45 [facility] - 07/04/2014 12:00 AM PDT [facility] - 07/02/2014 12:00 AM PDT documented in this encounter Miscellaneous Notes Plan of Care - [facility] - 07/12/2014 12:00 AM PDT iscellaneous - [facility] 07/12/2014 12:00 AM PDTElec tronically signed by Mariah Schulte at 07/12/2014 1:45 PM PDTMiscellaneous - [facility] - 07/12/2014 12:00 AM PDT i scellaneous - [facility] - 07/12/2014 12:00 AM PDT lan [...] and I will be going to a shelter as I have 16 steps to my [...] TBD) Equipment Recommendations: tub bench;hand held shower head;plant nursery worker;comfort height toilet ( pt. has all necessary [...] might be different fro m the original. [facility]LTER FACILITY TRANSFER ORDERS Patient Name: Cindy Arndt Patient : 1955 Gender: female Date of Admission: 07/02/2014 Date of Discharge: 07/05/2014 Admitting Provider: Frandy Teresa DO Discharging Provider: Chris Nicole PA-C Consultants: none PCP: Natalee Andersen [facility] transferring to: [facility] Provider after transfer: PCP and Dr. Frandy Teresa CODE STATUS: [x] Attempt CPR [] Do not resuscitate If patient is pulseless and not breathing, RN/MARKET MANAGER may pronounce . Advanced Directives included: [] [...] for this patient. Diet: [] As tolerated REINFORCED IRONWORKER may upgrade or downgrade diet as condition Indicates. [x] RN may downgrade diet as indicated. Type: [] Continue current diet of: Diet and Supplements Diet DIET CONSISTENT CARBOHYDRATE Number of Occurrences: -1 Days [] Other: Consistency/Precautions: [] Whole [] Thin Liquids [] Cut-up [] [place] Thick [] Advanced Chopped [] Honey Thickened [] Chopped [] Advanced Ground [] 1:1 feedings [] Ground/Pureed [] Other: Tube Feedings: [] PEG [] GT [] JT [] NGT [] Formula type: (Plater Production may change/substitute if indicated). [] Continuous Rate: [...] & Management for: ____same as above [] REINFORCED IRONWORKER Evaluation &Management for: [] Other: Wound/Skin Care: [...] tablet 1-2 tablets Take 1-2 tablets by [facility] every 4 hours as needed for [...] Take 15 mg by mouth ni ghtly. Selmer-3 Fatty Acids (FISH OIL CONCENTRATE) 1000 MG [...] Chris Nicole PA-C, certify that post hospital shelter care is medically nec essary on a continuing basis for any of the conditions for which he/she received care during this hospitalization. Check one: [x] Skilled [] Intermediate Additional Orders/Instructions: Physician's signature:__Chris iNcole PA-C 07/05/2014 13:18 [facility] NURSING FACILITY USE ONLY: [] Admitting orders [...] tolerate progressive walking and doing stairs du [facility] hospital stay due to multiple pain c/o. Attempted to see pt. 1145, however had just rec eived pain medication and requested PT return, SPL 9/10. At 1205 pt contacted PT for assist OOB due to left LE spasms and need for position change. Sitting at EOB on arrival, POSTAL CARRIER pres ent. Pt. donned LSO brace, stood [...] of endurance. When patient is walking in [facility] with a regular FWW she has to stop frequently and states she feels very weak, like sh e may fall. Patient lives alone. Outpatient prescriptions are filled at [facility] in [facility]. Electronically signed by: Franca Narvaez RN 07/05/2014 10:43 lan of [facility] - 07/05/2014 10:39 AM PDTFaxed referral to Gabri[facility] Stout and [facility]idia Tran. [place] : [id number] and [place]: [id number] Electronically signed by: Layne Collado 07/05/2014 10:40 Received a call from [facility]. They can accept Cindy. Received a call from [facility] and they can't accept Cindy. Tanna from [facility] called and they don't have any beds at this time Electronically signed by: Layne Collado 07/05/2014 12:22 Started the SNF packet. Electronically signed by: Layne Collado 07/05/2014 12:56 lan of [facility] Sandhya Benites RN - 07/05/2014 5:14 AM [...] TBD) Equipment Recommendations: tub bench;hand held shower head;plant nursery worker;comfort height toilet ( pt. has all necessary equipment) Planned Interventions: ADL retraining;transfer training Patient Status/Goals Reflects last filed data of patient status; may be from multiple contributors. Grooming: Status: did not occur today Assist: Utilizes: STG: Status: New Goal:modified independent LTG: Status: Goal: UE Dressing: Status: SBA Assist: Utilizes: STG: Status: Goal: LTG: Status: Goal: LE Dressing: Status: SBA Utilizes: plant nursery worker STG: Status: New Goal: modified independent LTG: [...] bed mobil ity. Pt has been using MULTI PUNCH OPERATOR and pain pills during the night. Zofran was given for nausea. MRAI drain with minimal drainage. Band aid on [...] by herself in a small apartment in [place]. Patient states she has her apartment set [...] to come from [facility] in [place]. She states the Said she might benefit fr Home Health upon discharge. She would like me to contact [facility] to giv e them a heads up. I called and spoke to Summer at [facility] , told her patients PCP i s [...] Pt. resting in bed on arrival, used MULTI PUNCH OPERATOR x 2 during session. SPL 5/10. Pt. hoping to urinate benefit authorizer to straight cath. Sidelying to sit at [...] TBD) Equipment Recommendations: tub bench;hand held shower head;plant nursery worker;comfort height toilet ( pt. has all necessary [...] & Review . Outcome: Progressing Pt using MULTI PUNCH OPERATOR and PO pain pills, c/o numbness on [...] and on a continuous oximeter for her MULTI PUNCH OPERATOR. She was unable to do her IS because o f the medications. She has the IS at bedside with a goal of 2400. She did not require additi onal respiratory care throughout the evening. p Note - Frandy Teresa, DO - 07/02/2014 2:25 PM PDTDATE: 07/02/2014 SURGEON: Frandy Teresa MD. WASTE TRANSPORTATION TECHNICIAN: ZANE Oh PREOPERATIVE DIAGNOSES 1. Spondylolisthesis, L5-S1. [...] x 26 mm Capstone PEEK cage from [employer] was chosen. It was filled with Infus [...] Note Cindy Arndt 58 y.o. female 1955 [id number] Proc. Date 07/02/2014 Preop Dx Spondylolisthesis L5-S1 Postop Dx same Procedure Procedure(s):MIS L5-S1 TRANSFORAMINAL LUMBAR INTERBODY FUSION Anesthesia General Surgeon Frandy Teresa DO Sack Sorter ZANE Oh EBL 100 mL Findings Findings consistent with scheduled procedure. No other abnormalities found. Complications none Specimens * No specimens in log * Drains Electronically signed by: Frandy Teresa DO 07/02/2014 14:22 [facility] documented in this en counter Plan of [...] [address] | | | | | | [place] [address] | | | | | | [phone] | | | | | | | | +--------+ + + + + | 08/28/ | Office | Cardiology | Dora De La Torre | | | 2019 | Visit | | [address] | | | | | | [address] | | | | | | [place] [address] | | | | | | [phone] | | | | | | | [...] + | [facility] | [address] | [place], [place] | [phone] | | [facility] | | [address] | | | - LABORATORY | | | | + + + + + | [facility] | [address] | [place] | | | [facility] | | [address] [place] [place] [address] | | | - LABORATORY | | [...] + | [facility] | [address] | [place] | [phone] | | [facility] | | [address] | | | - LABORATORY | | | | + + + + + | [facility] | [address] | [place] | | | [facility] | | [address], [facility] | | | - LABORATORY [...] | | POC | | | [facility] | | | | | | [...] + | [facility] | [address] | [place] | [phone] | | [facility] | | [address] | | | - LABORATORY | | | | + + + + + | [facility] | [address] | [place], [place] | | | [facility] | | [id number] | | | - LABORATORY | [...] + | [facility] | [address] | [place], [place] | [phone] | | [facility] | | [address] | | | - LABORATORY | | | | + + + + + | [facility] | [address] | [place], [place] | | | [facility] | | [address], [facility] | | | - LABORATORY [...] [address] | [place] | [phone] | | [facility] | | [address] | | | - LABORATORY | | | | + + + + + | [facility] | [address] | [place] | | | [facility] | | [address], [facility] | | | - LABORATORY [...] + | [facility] | [address] | [place] | [phone] | | [facility] | | [address] | | | - LABORATORY | | | | + + + + + | [facility] | [address] | [place], [place] | | | [facility] | | [address], [facility] | | | - LABORATORY [...] [address] | [place] | [phone] | | [facility] | | [address] | | | - LABORATORY | | | | + + + + + | [facility] | [address] | [place] | | | [facility] | | [id number] | | | - LABORATORY | [...] + | [facility] | [address] | [place] | [phone] | | [facility] | | [address] | | | - LABORATORY | | | | + + + + + | [facility] | [address] | [place] | | | [facility] | | [address], [facility] | | | - LABORATORY [...] + | [facility] | [address] | [place] | [phone] | | [facility] | | [address] | | | - LABORATORY | | | | + + + + + | [facility] | [address] | [place], [place] | | | [facility] | | [id number] | | | [...] | of hardware for posterior fusion from Q1supmxea S1 with interbody hardware at L5-S1. The [...] + | MISCELLANEOUS LAB | | | [phone] | + +---------+ + + | MISCELANIOUS LAB | | | [phone] | + +---------+ + + POC Glucose [...] + | [facility] | [address] | [place], [place] | [phone] | | [facility] | | [address] | | | - LABORATORY | | | | + + + + + | [facility] | [address] | [place] | | | [facility] | | [address] [place] [address] | | | - LABORATORY | | [...] + | [facility] | [address] | [place] | [phone] | | [facility] | | [address] | | | - LABORATORY | | | | + + + + + | [facility] | [address] | [place] | | | [facility] | | [address], [facility] | | | - LABORATORY [...] + | [facility] | [address] | [place] | [phone] | | [facility] | | [address] | | | - LABORATORY | | | | + + + + + | [facility] | [address] | [place] | | | [facility] | | [address], [facility] | | | - LABORATORY [...] + | [facility] | [address] | [place], [place] | [phone] | | [facility] | | [address] | | | - LABORATORY | | | | + + + + + | [facility] | [address] | [place], [place] | | | [facility] | | [id number] | | | - LABORATORY | [...] [address] | [place] | [phone] | | [facility] | | [address] | | | - LABORATORY | | | | + + + + + | [facility] | [address] | [place] | | | [facility] | | [address], [facility] | | | - LABORATORY [...] St | [place] | | | [facility] | | [address] | | | - BLOOD BANK | [...] mLs | | Surgical | | 1:200,000 0.25-1:360642 % | | 14 12:42 | | [...]
--- OUTSIDE RECORDS SUMMARY | ~2020-05-25 | XMS | Encounter Summary ---
Demographics + + + | Address | [address] | | | [place] [address] | + + + | Home Phone [...] [place], [place] | | | | | [address] | | + + + + + Care Team Providers + +------+ + | Care Professional Programmer Analyst Name | Role | Phone | + +------+ + PCP | Unavailable | + +------+ + Encounter Details +--------+ + + + + | Date | Type | Department | Care Team | Description | +--------+ + + + + | 06/17/ | Hospital | [facility] | | | | 1991 - | Encounter | MED CTR GENERIC PSY | | | | | | CONV DEPT [address] | | | | 06/18/ | | [place], | | | | 1991 | | [place] [address] | | | | | | [phone] | | | +--------+ + + + [...] [address] | | | | | | [place] [address] | | | | | | [phone] | | | | | | | | +--------+ + + + + | 08/28/ | Office | Cardiology | Dora De La Torre | | | 2019 | Visit | | [address] | | | | | | [address] | | | | | | [place] [address] | | | | | | [phone] | | | | | | | | +--------+ + + + + documented as of this encounter Visit Diagnoses Not on filedocumented in this encounter"
--- OUTSIDE RECORDS SUMMARY | ~2020-05-25 | XMS | Encounter Summary ---
Demographics + + + | Address | [address] | | | [place] [address] | + + + | Home Phone [...] [place] | | | | | [address] | | + + + + + Care Team Providers + +------+ + | Care Paediatric Thoracic Physician Name | Role | Phone | + +------+ + | Thieryr Fry MD | PCP | | + +------+ + Reason for Visit +---------+--------+ + | Reason | Onset | Comments | | | Date | | +---------+--------+ + | Results | 03/07/ | | | | 2014 | | +---------+--------+ + Encounter Details +--------+ + + + + | Date | Type | Department | Care Team | Description | +--------+ + + + + | 03/07/ | Telephone | [facility] | Katharine Cardona PA-C | Results | | 2014 | | MEDICINE [facility] | [address] [facility] | | | | | [address] | [place] [address] | | | | | [place], [place] | [phone] | | | | | [address] | | | | | | [phone] | | | +--------+ + + + [...] this encounter Miscellaneous Notes Telephone Encounter - Adrianne Horton, Pile Driving Nozzleman - 03/11/2015 3:41 PM PDTCalled Pat and delivered her results. Patient verbalized good understanding. elephone Encounter - Adrianne Horton , Pile Driving Nozzleman - 03/11/2015 8:40 AM PDTCall placed to Pat to deliver her results. Daxa nieto did not answer, left voicemail to call me back. elephone Encounter - Katharine Cardona PA-C - 03/07/20 5:05 PM PDTCall with results. Current labs are fine, continue meds as prescribed. Thanks , LM documented in this en counter Plan of [...] [address] | | | | | | [place] [address] | | | | | | [phone] | | | | | | | | +--------+ + + + + | 08/28/ | Office | Cardiology | Dora De La Torre | | | 2019 | Visit | | [address] | | | | | | [address] | | | | | | [place] [address] | | | | | | [phone] | | | | | | | | +--------+ + + + + documented as of this encounter Visit Diagnoses Not on filedocumented in this encounter"
--- OUTSIDE RECORDS SUMMARY | ~2020-05-25 | XMS | Encounter Summary ---
Demographics + + + | Address | [address] | | | [place] [address] | + + + | Home Phone [...] [place], [place] | | | | | [address] | | + + + + + Care Team Providers + +------+ + | Care Recreation Clerk Name | Role | Phone | + +------+ + PCP | Unavailable | + +------+ + Encounter Details +--------+ + + + + | Date | Type | Department | Care Team | Description | +--------+ + + + + | 12/09/ | Hospital | [facility] | Serafin Bautista | | | 2011 | Encounter | MED CTR XRAY [address] | | | | | [place] | [place] | | | | | [place] [address] | [address] | | | | | [phone] | | | +--------+ + + + [...] | | | | | [place] [address] | | | | | | [phone] | | | | | | | | +--------+ + + + + | 08/28/ | Office | Cardiology | Dora De La Torre | | | 2019 | Visit | | [address] | | | | | | [address] | | | | | | [place] [address] | | | | | | [phone] | | | | | | | | +--------+ + + + + documented as of this encounter Procedures + +--------+ + + + | Procedure Name | Priori | Date/Time | Associated Diagnosis | Comments | | | ty | | | | + +--------+ + + + | FL EPIDURAL OR | | 12/09/2011 | | Results for this | | SUBARACHNOID | | 1:19 PM | | procedure are in the | | INJECTION LUMBAR | | PST | | results section. | | SACRAL | | | | | + +--------+ + + + documented in this encounter Results FL Injection Epidural Lumbar Sacral (12/09/2011 1:19 PM PST) + + | Specimen | + + | | + + + + + | Narrative | Performed At | + + + | [facility] Diagnostic Imaging Department | [facility] | | [address] | [facility] | | PROCEDURE NOTE EPIDURAL | DIAG IMG | | STEROID INJECTIONS, 12/09/2011 CLINICAL HISTORY: ICD-9 CODE 724.4, | | | LUMBAR RADICULITIS. Ms. Cindy Arndt presents to the | | | fluoroscopy suite for fluoroscopically- guided bilateral L5-S1 | | | transforaminal epidural steroid injections as part of conservative | | | management for chronic pain with lumbar radiculopathy and | | | degenerative disk disease. After informed consent was obtained, the | | | patient lay in the prone position on the fluoroscopy table. The | | | areas were identified under fluoroscopic guidance. The areas were | | | prepped and draped in sterile fashion. A 25-gauge, 1.5-inch needle | | | was inserted into each region and approximately 3 mL of buffered 1% | | | lidocaine was infused. Then, a 22-gauge spinal needle was inserted | | | into the posterior superior transforaminal space and advanced into the | | | epidural space under fluoroscopic guidance. Confirmation into the | | | epidural space was obtained with infusion of approximately 1 mL of | | | Isovue contrast which showed epidural flow as well as nerve sheath | | | flow. Then, a combination of 2 mL of 1% lidocaine and 2 mL of 6 | | | mg/mL Celestone was infused. The patient tolerated the procedure | | | well without complications. Pre- and post-procedure blood pressures | | | were stable. The patient was given verbal as well as written | | | followup instructions, and the patient reported some improvement in | | | pain symptoms post procedure. Prior to the start of the | | | procedure, the following were performed and verified, including | | | correct patient identity, correct site/side marked and visible, | | | agreement on the procedure to be done, correct patient positioning and | | | an accurate procedure consent form. Any safety precautions based on | | | clinical history and/or medication use have been addressed. I | | | personally performed the procedure above. <Electronically | | | Signed by Serafin Bautista MD> 12/11/11 0718 | | + + + + + | Procedure Note | + + | Juan, Rad Conversion - 11/30/2013 4:[address] [facility] | | Diagnostic Imaging Department | | [address] | | | | | | | | PROCEDURE NOTE | | | | EPIDURAL STEROID INJECTIONS, 12/09/2011 | | | | CLINICAL HISTORY: ICD-9 CODE 724.4, LUMBAR RADICULITIS. | | | | Ms. Cindy Arndt presents to the fluoroscopy suite for fluoroscopically- | | guided bilateral L5-S1 transforaminal epidural steroid injections as part of | | conservative management for chronic pain with lumbar radiculopathy and | | degenerative disk disease. After informed consent was obtained, the patient lay | | in the prone position on the fluoroscopy table. The areas were identified under | | fluoroscopic guidance. The areas were prepped and draped in sterile fashion. A | | 25-gauge, 1.5-inch needle was inserted into each region and approximately 3 mL | | of buffered 1% lidocaine was infused. Then, a 22-gauge spinal needle was | | inserted into the posterior superior transforaminal space and advanced into the | | epidural space under fluoroscopic guidance. Confirmation into the epidural | | space was obtained with infusion of approximately 1 mL of Isovue contrast which | | showed epidural flow as well as nerve sheath flow. Then, a combination of 2 mL | | of 1% lidocaine and 2 mL of 6 mg/mL Celestone was infused. The patient | | tolerated the procedure well without complications. Pre- and post-procedure | | blood pressures were stable. The patient was given verbal as well as written | | followup instructions, and the patient reported some improvement in pain | | symptoms post procedure. | | | | Prior to the start of the procedure, the following were performed and verified, | | including correct patient identity, correct site/side marked and visible, | | agreement on the procedure to be done, correct patient positioning and an | | accurate procedure consent form. Any safety precautions based on clinical | | history and/or medication use have been addressed. | | | | I personally performed the procedure above. | | | | | | <Electronically Signed by Serafin Bautista MD> 12/11/11 0718 | + + + +---------+ + + [...]
--- OUTSIDE RECORDS SUMMARY | ~2020-05-25 | XMS | Encounter Summary ---
Demographics + + + | Address | [address] | | | [place] [address] | + + + | Home Phone [...] [place] | | | | | [address] | | + + + + + Care Team Providers + +------+ + | Care Leasing Manager Name | Role | Phone | [...] + + | 02/26/ | Emergency | [facility] | [place], | CVA (cerebral | | 2015 | | MED CTR EMERGENCY | Davey Simons MD [address] | vascular accident) | | | | CENTER [address] | [address] [facility] | ([facility]) (Primary Dx) | | | | [place], [place] | [place] [address] | | | | | [address] | [phone] | | | | | [phone] | | | +--------+ + + + [...] + + + +---------+ + + | [place]-3 Fatty | Take 1,000 mg by | [...] might be differe nt from the original. [facility] Emergency Department Encounter Note [address] [place] [address] PCP:Natalee Andersen [phone] CHIEF COMPLAINT: Chief Complaint Patient presents with Facial Droop ED Room: ED07/ED07 HPI Cindy Arndt is a 59 y.o. female who presents to the Emergency Department accompanied by a friend from [place] for evaluation. The patient recently had symptoms that were diagno sed as stroke or TIA. The symptoms were of a weakness and numbness in her right arm and leg . She was hospitalized for 4 days in [place] for this. She was discharged and subsequent ly has had 2 or 3 emergency department visits in [place] for symptoms diagnosed as TIAs. These have been recurrent and worsening right arm and leg weakness and then today with some right facial drooping and drooling. She is on Aggrenox. She had a full workup in [place] including brain CT, brain MRI, and carotid [...] Laterality: N/A; Surgeon: Frandy castellanos DO; Location: [facility] MAIN OR CURRENT MEDICATIONS Discharge Medication [...] or Severe Contraindications. Consult references such as [employer] for furthe r information. Magnesium 250 MG [...] or Severe Contraindications. Consult references such as [employer] for further information. Multiple Vitamins-Minerals (CENTRUM SILVER PO) Take 1 tablet by mouth Daily.Historical Med OLANZapine zydis (ZYPREXA ZYDIS) 15 MG disintegrating tablet Take 15 mg by mouth nightly. [place]-3 Fatty Acids (FISH OIL CONCENTRATE) 1000 MG [...] review all of her imaging studies from [facility] ED COURSE & MEDICAL DECISION MAKING Pertinent Labs & Imaging studies were reviewed along with EMS notes and longterm record s if applicable. (See chart for details) Medications and Allergy list reviewed. Nurses note and old records were reviewed The patient was seen and examined, I was finally able to get her records from [facility] which showed a normal MRI and [...] accident) (HCC) Follow-up Information Follow up with [facility]. Specialty: Emergency Medicine Contact information: [address] [facility] [address] Follow up with [facility]. Specialty: Emergency Medicine Contact information: [address] [facility] [address] Follow up with Natalee Andersen NP. Specialty: Family Nurse Practitioner Contact information: [address] [place] [address] Schedule an appointment as soon as possible for a visit with Baudilio Newman MD. Specialty: Neurology Contact information: [address] [facility] [id number] Discharge Medication List as of 02/26/2015 15:21 Davey Varela MD 02/26/15 1732 do cumented in this encounter Miscellaneous Notes ED Triage Notes - Yesenia Monroy RN - 02/26/2015 1:11 PM PDTC/O right sided facial mahendra op and numbness to right arm and leg onset yesterday at approximately 1800. Pt was seen in [facility] by her primary care physician [...] [address] | | | | | | [place] [address] | | | | | | [phone] | | | | | | | | +--------+ + + + + | 08/28/ | Office | Cardiology | Dora De La Torre | | | 2019 | Visit | | [address] | | | | | | [address] | | | | | | [place] [address] | | | | | | [phone] | | | | | | | [...] mL/min/1.73m2 | [facility] | | | [place] | RATE,ESTIMATED | | MEDICAL | | | | mL/min/1.68g1Qjep than | | CENTER - | | [...] [address] | [place] | [phone] | | [facility] | | [address] | | | - LABORATORY | | [...] | | | | | | [facility] | | | | | | MEDICAL [...] [address] | [place] | [phone] | | [facility] | | [address] | | | - LABORATORY | | [...] droop 02/26/2015 08:15 [facility] | | | [facility] 02/19/2015 | | | 10:15 [facility] | | | -Diabetes mellitus [...] 02/17/2015 | | | 08:22 [facility] | | | -Long-term (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 [...] 02/14/2015 | | | 09:56 [facility] | | | -Disturbance of skin [...] status 02/06/2015 10:46 | | | [facility] | | | -Generalized pain [...] | | | 02/01/2015 21:38 [facility] | | | Emergency 01/22/2015 14:00 [facility] | | | Urgent Care -Myalgia and [...] | | | 01/16/2015 12:15 [facility] | | | Urgent Care -Unspecified acquired [...] | | medications 01/07/2015 11:45 [facility] | | | Urgent Care -Unspecified acquired [...] 12/30/2014 | | | 17:54 [facility] | | | -Obstructive sleep apnea [...] | | | 12/30/2014 14:30 [facility] | | | Urgent Care -Cramp of [...] -Cramp of limb 11/29/2014 16:15 [facility] | | | Urgent Care -Esophageal reflux [...] ------ | | | --------- [address] | | | [facility] [address] [facility] | | | [facility] 7 0 Total | | | Note: Visits indicate total known visits. Medicaid [place] Dx are the | | | number of primary diagnoses on the [facility]'s non-emergent dx list. | | | | [...]
--- OUTSIDE RECORDS SUMMARY | ~2020-05-25 | XMS | Encounter Summary ---
Demographics + + + | Address | [address] | | | [place] [address] | + + + | Home Phone | | + + + | Preferred Language | Unknown | + + + | Marital Status | Single | + + + | Lutheran Affiliation | Unknown | + + + | Race | White | + + + | Ethnic Group | Not or | + + + Author + + + | Author | [facility] | + + + | Organization | [facility] | + + + | Address | Unknown | + + + | Phone | Unavailable | + + + Support + + + + + | Name | Relationship | Address | Phone | + + + + + | Kelsy Bautista | ECON | [address] | | | | | [place] | | | | | [address] | | + + + + + Care Team Providers + +------+ + | Care Glycerin Operator Name | Role | Phone | [...] | | [facility], [address] | | | | | | [place], [place] | | | | | | [address] | | | | | | [phone] | | | +--------+ + + + [...] as of this encounter Progress Notes Interface, Tech Intern In - 12/11/2006 5:03 AM [facility] DATE: 07/03/97 INFECTIOUS DISEASE [...] on cefuroxime. I will talk with Dr. Cardoaz about the possibility of removing all of [...]
--- OUTSIDE RECORDS SUMMARY | ~2020-05-25 | XMS | Encounter Summary ---
Demographics + + + | Address | [address] | | | [place] [address] | + + + | Home Phone [...] [place] | | | | | [address] | | + + + + + Care Team Providers + +------+ + | Care Rn Neonatal Icu Name | Role | Phone | + +------+ + | Hari Samson DO | PCP | | + +------+ + Reason for Visit +---------+--------+ + | Reason | Onset | Comments | | | Date | | +---------+--------+ + | Testing | 05/08/ | | | | 2020 | | +---------+--------+ + Encounter Details +--------+ + + + + | Date | Type | Department | Care Team | Description | +--------+ + + + + | 05/08/ | Telephone | [facility] | Dora De La Torre | Testing | | 2020 | | CARDIOLOGY [place] | [address] | | | | | [address] | [address] | | | | | [address] | [place] [address] | | | | | [place] | [phone] | | | | | [address] | | | | | | [phone] | | | +--------+ + + + [...] Notes Telephone Encounter - Dora De La Torre, [place] - 05/08/2020 1:45 PM PDTI rrequested my f ollow up with her be cancelled, as the purpose was to follow up on her event monitor . This is the best test to follow up on her symptoms, but I can not help her if she does not do it. ----- Message from Lizeth Ashby sent at 05/08/2020 12:00 PM PDT ----- Regarding: Monitor Pt called to cancel her heart monitor appt today. She states she has changed her mind and does not want to do this test. documented in t his encounter Plan of Treatment +--------+ + + + + | Date | Type | Specialty | Care Team | Description | +--------+ + + + + | 05/29/ | Procedure | Cardiology | Dora De La Torre | | | 2019 | visit | | [address] | | | | | | [address] | | | | | | [place] [address] | | | | | | [phone] | | | | | | | | +--------+ + + + + | 08/28/ | Office | Cardiology | Dora De La Torre | | | 2019 | Visit | | [address] | | | | | | [address] | | | | | | [place] [address] | | | | | | [phone] | | | | | | | | +--------+ + + + + documented as of this encounter Visit Diagnoses Not on filedocumented in this encounter"
--- OUTSIDE RECORDS SUMMARY | ~2020-05-25 | XMS | Encounter Summary ---
Demographics + + + | Address | [address] | | | [place] [address] | + + + | Home Phone [...] [place] | | | | | [address] | | + + + + + Care Team Providers + +------+ + | Care Nanotechnology Engineering Technician Name | Role | Phone | + +------+ + | Natalee Andersen NP | PCP | | + +------+ + Reason for Visit + +--------+ + | Reason | Onset | Comments | | | Date | | + +--------+ + | Medication Refill | 12/03/ | | | | 2014 | | + +--------+ + Encounter Details +--------+--------+ + + + | Date | Type | Department | Care Team | Description | +--------+--------+ + + + | 12/03/ | Refill | [facility] | Frandy Teresa, | Medication Refill | | 2014 | | NEUROSURGERY [address] | DO [address] | | | | | [address] [facility] [address] | [address] [place], [place] | | | | | [place], [place] | [id number] | | | | | [address] | | | | | | [phone] | | | +--------+--------+ + + + [...] this encounter Miscellaneous Notes Telephone Encounter - Keily Samuel RN - 12/03/2014 9:12 AM PSTPatient requesting 3 month supply of gabapentin. We are over 90 days from surgery refills need to come from h er PCP. She states her PCP has not received any documentation from our office. Spoke with Leah -Called provider office and the number we have in [facility] is not correct. Art Andersen NP Chart notes faxed to [phone] along with medication list. Sent request to update contac t information in [facility] To Kathy @ [facility] Support Team documented in this encounter Plan of Treatment [...] [address] | | | | | | [place] [address] | | | | | | [phone] | | | | | | | | +--------+ + + + + | 08/28/ | Office | Cardiology | Dora De La Torre | | | 2019 | Visit | | [address] | | | | | | [address] | | | | | | [place] [address] | | | | | | [phone] | | | | | | | | +--------+ + + + + documented as of this encounter Visit Diagnoses Not on filedocumented in this encounter"
--- OUTSIDE RECORDS SUMMARY | ~2020-05-25 | XMS | Encounter Summary ---
Demographics + + + | Address | [address] | | | [place] [address] | + + + | Home Phone [...] [place] | | | | | [address] | | + + + + + Care Team Providers + +------+ + | Care Gaming Department Head Name | Role | Phone | + [...] | | | spondylolist | | [address] [place] | | | | | hesis | | [place], | | | | | Spinal | | [place] [address] | | | | | stenosis, | | Phone: | | | | | lumbar | | [phone] | | | | | region, | | Fax: | | | | | without | | [phone] | | | | | neurogenic | [...] | | | | | | | [place] | | | | | | [...] | | | | | | [place] | | | | | | | [...] | | | | | | SEG [place] | | | | | | | [...] + + | 07/02/ | Hospital | [facility] | Frandy Teresa, | Spinal stenosis, | | 2013 | Encounter | MED CTR XRAY [address] | DO [address] | lumbar region, | | | | [place] | [address] [place], [place] | without neurogenic | | | | [place] [address] | [address] | claudication | | | | [phone] | | (Primary Dx) | +--------+ + [...] + + + +---------+ + + | [place]-3 Fatty | Take 1,000 mg by | [...] [address] | | | | | | [place] [address] | | | | | | [phone] | | | | | | | | +--------+ + + + + | 08/28/ | Office | Cardiology | Britt Dora | | | 2019 | Visit | | [address] | | | | | | [address] | | | | | | [place] [address] | | | | | | [phone] | | | | | | | [...]
--- OUTSIDE RECORDS SUMMARY | ~2020-05-25 | XMS | Encounter Summary ---
Demographics + + + | Address | [address] | | | [place] [address] | + + + | Home Phone [...] [place] | | | | | [address] | | + + + + + Care Team Providers + +------+ + | Care Production Superintendent Name | Role | Phone | + +------+ + | Basim Bolanos MD | PCP | | + +------+ + Encounter Details +--------+ + + + + | Date | Type | Department | Care Team | Description | +--------+ + + + + | 03/01/ | Abstract | [facility] [place] | [facility], | | | 2012 | | GASTROENTEROLOGY | FORTUNATO Thomas [address] | | | | | [address] | [address] | | | | | [address] [place], [place] | [place], [place] | | | | | [address] | [address] | | | | | [phone] | | | +--------+ + + + [...] | | | | | [place] [address] | | | | | | [phone] | | | | | | | | +--------+ + + + + | 08/28/ | Office | Cardiology | Dora De La Torre | | | 2019 | Visit | | [address] | | | | | | [address] | | | | | | [place] [address] | | | | | | [phone] | | | | | | | | +--------+ + + + + documented as of this encounter Visit Diagnoses Not on filedocumented in this encounter"
--- OUTSIDE RECORDS SUMMARY | ~2020-05-25 | XMS | Encounter Summary ---
Demographics + + + | Address | [address] | | | [place] [address] | + + + | Home Phone [...] [place] | | | | | [address] | | + + + + + Care Team Providers + +------+ + | Care World Geography Teacher Name | Role | Phone | + +------+ + | Adriaon Patrick MD | PCP | | + +------+ + Reason for Visit + + + | Reason | Comments | + + + | Follow-up | 2 month/ monitor | + + + Encounter Details +--------+---------+ + + + | Date | Type | Department | Care Team | Description | +--------+---------+ + + + | 10/04/ | Office | [facility] | Desiree Peterson DO | ROGERS on CPAP (Primary | | 2019 | Visit | CARDIOLOGY [place] | [address] | Dx); Morbid obesity | | | | [address] | [address] [place], [place] | (HCC); Benign | | | | [address] | [address] | essential HTN; | | | | [place], [place] | | Atrial fibrillation, | | | | [address] | | unspecified type | | | | [phone] | | ([facility]) | +--------+---------+ + + + Social History [...] documented in this encounter Progress Notes Desiree Peterson, - 10/04/2019 11:40 AM PST [facility] Cardiology Cardiology Follow Up Note [...] rtake in exercise. She recently got a Mo-DV and has been walking him more regularly. [...] by mouth daily. Blood Glucose Monitoring Suppl (Smart Energy[employer] FLEX SYSTEM) w/Device KIT by Does not ap ply route. budesonide-formoterol (SYMBICORT) 160-4.5 MCG/ACT inhaler Inhale 2 puffs into the lungs 2 (two) times daily. Calcium Carbonate Antacid 1000 MG tablet Take 1,000 mg by mouth 3 (three) times daily. Cholecalciferol (VITAMIN D3) 70592 units CAPS Take by mouth once a [...] [address] | | | | | | [place] [address] | | | | | | [phone] | | | | | | | | +--------+ + + + + | 08/28/ | Office | Cardiology | Dora De La Torre | | | 2019 | Visit | | [address] | | | | | | [address] | | | | | | [place] [address] | | | | | | [phone] | | | | | | | [...]
--- OUTSIDE RECORDS SUMMARY | ~2020-05-25 | XMS | Encounter Summary ---
Demographics + + + | Address | [address] | | | [place] [address] | + + + | Home Phone [...] [place] | | | | | [address] | | + + + + + Care Team Providers + +------+ + | Care General Duty Nurse Name | Role | Phone | + +------+ + | Natalee Andersen NP | PCP | | + +------+ + Encounter Details +--------+ + + + + | Date | Type | Department | Care Team | Description | +--------+ + + + + | 09/27/ | Hospital | [facility] | Frandy Teresa, | Lumbar spondylosis; | | 2013 | Encounter | MED CTR XRAY [address] | DO [address] | S/P lumbar fusion | | | | [place] | [address] [place], [place] | | | | | [place] [address] | [address] | | | | | [phone] | | | +--------+ + + + [...] + + + +---------+ + + | [place]-3 Fatty | Take 1,000 mg by | [...] [address] | | | | | | [place] [address] | | | | | | [phone] | | | | | | | | +--------+ + + + + | 08/28/ | Office | Cardiology | Dora De La Torre | | | 2019 | Visit | | [address] | | | | | | [address] | | | | | | [place] [address] | | | | | | [phone] | | | | | | | [...] + | MISCELLANEOUS LAB | | | [phone] | + +---------+ + + | MISCELANIOUS LAB | | | [phone] | + +---------+ + + documented in this encounter Visit Diagnoses + + | Diagnosis | + + | Lumbar spondylosis Lumbosacral spondylosis without myelopathy | + + | S/P lumbar fusion Arthrodesis status | + + documented in this encounter"
--- OUTSIDE RECORDS SUMMARY | ~2020-05-25 | XMS | Encounter Summary ---
Demographics + + + | Address | [address] | | | [place] [address] | + + + | Home Phone [...] [place] | | | | | [address] | | + + + + + Care Team Providers + +------+ + | Care Transplant Worker Name | Role | Phone | [...] + + | 09/10/ | Documentati | [facility] | Katharine Moncada, | Other (urgent | | 2019 | on | CARDIOLOGY [place] | Technologist | report) | | | | [address] | | | | | | [place] | | | | | | [address] | | | | | | [phone] | | | +--------+ + + + [...] | | | | | [place] [address] | | | | | | [phone] | | | | | | | | +--------+ + + + + | 08/28/ | Office | Cardiology | Dora De La Torre | | | 2020 | Visit | | [address] | | | | | | [address] | | | | | | [place] [address] | | | | | | [phone] | | | | | | | | +--------+ + + + + documented as of this encounter Visit Diagnoses Not on filedocumented in this encounter"
--- OUTSIDE RECORDS SUMMARY | ~2020-05-25 | XMS | Encounter Summary ---
Demographics + + + | Address | [address] | | | [place] [address] | + + + | Home Phone [...] [place] | | | | | [address] | | + + + + + Care Team Providers + +------+ + | Care Caramel Candy Maker Helper Name | Role | Phone | + +------+ + | Natalee Andersen NP | PCP | | + +------+ + Reason for Visit +--------+--------+ + | Reason | Onset | Comments | | | Date | | +--------+--------+ + | Other | 03/03/ | Results | | | 2014 | | +--------+--------+ + Encounter Details +--------+ + + + + | Date | Type | Department | Care Team | Description | +--------+ + + + + | 03/03/ | Telephone | [facility] | Baudilio Newman | Other (Results) | | 2014 | | NEUROLOGY LAURIE Abad MD Need updated | | | | | [address], | address | | | | | [address] [place] | | | | | | [place] [address] | | | | | | [phone] | | | +--------+ + + + [...] this encounter Miscellaneous Notes Telephone Encounter - Kimberly Ellison RN - 03/03/2015 10:59 AM PDTRelayed MRI results per Dr. Newman. Informed patient we are still waiting for biopsy results. Patient verbalized understanding. elepho ne Encounter - Kimberly Ellison RN - 03/03/2015 10:54 AM PDT----- Message from Baudilio trammell MD sent at 02/28/2015 12:44 PDT ----- Please call Ms. Arndt and let her know that the stroke work up she had done at [place] was quite thorough and she did not have evidence of a stroke on MRI. We do not need to do f urther testing at this point, which is great news. Also let her know we are still working on getting results of her biopsy. 10 :54 AM PDTdocumented in this encounter Plan of [...] [address] | | | | | | [place] [address] | | | | | | [phone] | | | | | | | | +--------+ + + + + | 08/28/ | Office | Cardiology | Dora De La Torre | | | 2019 | Visit | | [address] | | | | | | [address] | | | | | | [place] [address] | | | | | | [phone] | | | | | | | | +--------+ + + + + documented as of this encounter Visit Diagnoses Not on filedocumented in this encounter"
--- OUTSIDE RECORDS SUMMARY | ~2020-05-25 | XMS | Encounter Summary ---
Demographics + + + | Address | [address] | | | [place] [address] | + + + | Home Phone [...] [place], [place] | | | | | [address] | | + + + + + Care Team Providers + +------+ + | Care Ear Pull Machine Operator Name | Role | Phone | + +------+ + PCP | Unavailable | + +------+ + Encounter Details +--------+ + + + + | Date | Type | Department | Care Team | Description | +--------+ + + + + | 03/26/ | Hospital | [facility] | | | | 2001 | Encounter | MED [facility] LAB[facility] | | | | | | [address] | | | | | | [place] | | | | | | [address] | | | | | | [phone] | | | +--------+ + + + [...] | | | | | [place] [address] | | | | | | [phone] | | | | | | | | +--------+ + + + + | 08/28/ | Office | Cardiology | Dora D eLa Torre | | | 2020 | Visit | | [address] | | | | | | [address] | | | | | | [place] [address] | | | | | | [phone] | | | | | | | | +--------+ + + + + documented as of this encounter Visit Diagnoses Not on filedocumented in this encounter"
--- OUTSIDE RECORDS SUMMARY | ~2020-05-25 | XMS | Encounter Summary ---
Demographics + + + | Address | [address] | | | [place] [address] | + + + | Home Phone [...] [place] | | | | | [address] | | + + + + + Care Team Providers + +------+ + | Care Automotive Specialty Technician Name | Role | Phone | [...] + + | 08/21/ | Documentati | [facility] | Katharine Moncada, | Other (urgent | | 2019 | on | CARDIOLOGY [place] | Technologist | report) | | | | [address] | | | | | | [place] | | | | | | [address] | | | | | | [phone] | | | +--------+ + + + [...] | | | | | [place] [address] | | | | | | [phone] | | | | | | | | +--------+ + + + + | 08/28/ | Office | Cardiology | Dora De La Torre | | | 2020 | Visit | | [address] | | | | | | [address] | | | | | | [place] [address] | | | | | | [phone] | | | | | | | | +--------+ + + + + documented as of this encounter Visit Diagnoses Not on filedocumented in this encounter"
--- OUTSIDE RECORDS SUMMARY | ~2020-05-25 | XMS | Encounter Summary ---
Demographics + + + | Address | [address] | | | [place] [address] | + + + | Home Phone [...] [place] | | | | | [address] | | + + + + + Care Team Providers + +------+ + | Care Unemployment Claims Adjudicator Name | Role | Phone | + [...] + | 07/19/ | Telephone | [facility] | Frandy Teresa, | Appointment | | 2013 | | NEUROSURGERY [address] | DO [address] | | | | | [address] | [address] [place], [place] | | | | | [place], [place] | [id number] | | | | | [address] | | | | | | [phone] | | | +--------+ + + + [...] encounter Miscellaneous Notes Telephone Encounter - Shayne Wu Cert MA - 07/22/2014 11:51 AM PDTI let Janes know that unfortunately we do not have any appointments available next week for Cindy to re-schedu osvaldo to. She will let Cindy know and if she still cannot make her appointment, they will c all. SHAYNE WU elephone EncounShayne Lam Cert MA - 07/22/2014 10:52 AM PDTI returned janes's call and left her a m essage. SHAYNE WU elephone Tiffani Spivey - 07/22/2014 8:09 AM Nakia from [facility] called back this morning to isamar mcarthure that she spoke with the patient again regarding this appointment and the patient would be ok with rescheduling to a time the following week. She just didn't want to make the trip down here right after she got back home to [place]. Janes can be reached at [phone] ectronically signed by Tiffani Humphrey at 07/22/2014 8:11 AM PDTTelephone Encounter - Lashawn Metzger - 07/19/2014 12:56 PM PDTSuarlen from [facility] called to confirm Cindy' s appointment for [...] | | | | | [place] [address] | | | | | | [phone] | | | | | | | | +--------+ + + + + | 08/28/ | Office | Cardiology | Dora De La Torre | | | 2019 | Visit | | [address] | | | | | | [address] | | | | | | [place] [address] | | | | | | [phone] | | | | | | | | +--------+ + + + + documented as of this encounter Visit Diagnoses Not on filedocumented in this encounter"
--- OUTSIDE RECORDS SUMMARY | ~2020-05-25 | XMS | Encounter Summary ---
Demographics + + + | Address | [address] | | | [place] [address] | + + + | Home Phone | | + + + | Preferred Language | Unknown | + + + | Marital Status | Single | + + + | Buddhist Affiliation | Unknown | + + + [...] [place] | | | | | [address] | | + + + + + Care Team Providers + +------+ + | Care Cutting Supervisor Name | Role | Phone | [...] | | | | | | [place], | | | | | | [place] [address] | | | | | | [phone] | | | +--------+ + + + [...] | | + +---------+ + + | [facility] DEPARTMENT OF | | | | | RADIOLOGY | | | | + +---------+ + + documented in this encounter Visit Diagnoses Not on filedocumented in this encounter"
--- OUTSIDE RECORDS SUMMARY | ~2020-05-25 | XMS | Encounter Summary ---
Demographics + + + | Address | [address] | | | [place] [address] | + + + | Home Phone [...] [place] | | | | | [address] | | + + + + + Care Team Providers + +------+ + | Care Test Engineer Name | Role | Phone | [...] + | 02/21/ | Refill | [facility] | Deon Gonzales | Medication Refill | | 2012 | | SLEEP DISORDER [address] | MD Laureano [address] | | | | | [address] | [address] | | | | | [place] [address] | [place] [address] | | | | | [phone] | [phone] | | | | | | | [...] - 02/22/2013 9:32 AM [facility] documented in this encount er Plan of [...] [address] | | | | | | [place] [address] | | | | | | [phone] | | | | | | | | +--------+ + + + + | 08/28/ | Office | Cardiology | Dora De La Torre | | | 2020 | Visit | | [address] | | | | | | [address] | | | | | | [place] [address] | | | | | | [phone] | | | | | | | | +--------+ + + + + documented as of this encounter Visit Diagnoses + + | Diagnosis | + + | Obstructive sleep apnea (adult) (pediatric) - Primary | + + documented in this encounter"
--- OUTSIDE RECORDS SUMMARY | ~2020-05-25 | XMS | Encounter Summary ---
Demographics + + + | Address | [address] | | | [place] [address] | + + + | Home Phone [...] [place] | | | | | [address] | | + + + + + Care Team Providers + +------+ + | Care Medical Imaging Specialist Name | Role | Phone | + +------+ + | Hari Samson DO | PCP | | + +------+ + Encounter Details +--------+ + + + + | Date | Type | Department | Care Team | Description | +--------+ + + + + | 12/19/ | Imaging | [facility] | Provider, | | | 2019 | Exam | [facility] | MD Cheli [address] | | | | | IMAGING [address] | [address] | | | | | [address] [place] | [place] [address] | | | | | [place] [address] | | | | | | [phone] | | | +--------+ + + + [...] [address] | | | | | | [place] [address] | | | | | | [phone] | | | | | | | | +--------+ + + + + | 08/28/ | Office | Cardiology | Dora De La Torre | | | 2019 | Visit | | [address] | | | | | | [address] | | | | | | [place] [address] | | | | | | [phone] | | | | | | | | +--------+ + + + + documented as of this encounter Procedures + +--------+ + + + | Procedure Name | Priori | Date/Time | Associated Diagnosis | Comments | | | ty | | | | + +--------+ + + + | VAS CAROTID DUPLEX | Routin | 02/03/2015 | | Results for this | | BILATERAL | e | 12:00 AM | | procedure are in the | | | | PDT | | results section. | + +--------+ + + + documented in this encounter Results VAS Carotid Duplex Bilateral (02/03/2015 12:00 AM PDT) + + | Specimen | + + | | + + + + + | Narrative | Performed At | + + + | External films for comparison only | [facility] | | | | | No results will be in the chart. | | + + + + +---------+ + + | Performing | Address | City/State/Zipcode | Phone Number | | Organization | | | | + +---------+ + + | [facility] | | | | + +---------+ + + documented in this encounter Visit Diagnoses Not on filedocumented in this encounter"
--- OUTSIDE RECORDS SUMMARY | ~2020-05-25 | XMS | Encounter Summary ---
Demographics + + + | Address | [address] | | | [place] [address] | + + + | Home Phone [...] [place] | | | | | [address] | | + + + + + Care Team Providers + +------+ + | Care Crystalizer Tender Name | Role | Phone | [...] [address] | [address] [place], [place] | | | | | [place], [place] | [address] | | | | | [address] | | | | | | [phone] | | | +--------+ + + + [...] [address] | | | | | | [place] [address] | | | | | | [phone] | | | | | | | | +--------+ + + + + | 08/28/ | Office | Cardiology | Dora De La Torre | | | 2020 | Visit | | [address] | | | | | | [address] | | | | | | [place] [address] | | | | | | [phone] | | | | | | | [...] + | MISCELLANEOUS LAB | | | [phone] | + +---------+ + + | MISCELANIOUS LAB | | | [phone] | + +---------+ + + documented in this encounter Visit Diagnoses + + | Diagnosis | + + | Back pain - Primary Backache, unspecified | + + documented in this encounter"
--- OUTSIDE RECORDS SUMMARY | ~2020-05-25 | XMS | Encounter Summary ---
Demographics + + + | Address | [address] | | | [place] [address] | + + + | Home Phone [...] [place] | | | | | [address] | | + + + + + Care Team Providers + +------+ + | Care Mortician Investigator Name | Role | Phone | [...] | | | | | Procedures | FLOOR COVERING CONTRACTOR [address] | [address] | | | | | [place] OFFICE | | [address] | | | | | CONSULTATION | [address] | [place] | | | | | NEW/ESTAB | [facility], | [address] Phone: | | | | | PATIENT 60 | [place] [address] | [phone] | | | | | MIN | Phone: | Fax: | | | | | | [phone] | [phone] | | | | | | Fax: | | | | | | | [phone] | | +--------+--------+ + + + + Encounter Details +--------+---------+ + + + | Date | Type | Department | Care Team | Description | +--------+---------+ + + + | 05/02/ | Office | [facility] | Frandy Teresa, | Spondylolisthesis of | | 2013 | Visit | NEUROSURGERY [address] | DO [address] | lumbar region | | | | [address] | [address] [place], [place] | (Primary Dx); Lumbar | | | | [place], [place] | [id number] | stenosis; Lumbar | | | | [address] | | radicular pain; | | | | [phone] | | Lumbago | +--------+---------+ + + [...] m the original. Frandy Teresa DO [address] [place], [place] [address] FAX: NEUROSURGERY HISTORY AND PHYSICAL EXAMINATION CHIEF [...] Take 15 mg by mouth nightl y. [place]-3 Fatty Acids (FISH OIL CONCENTRATE) 1000 MG [...] no apparent deficits with short or exterminator memory. CRANIAL NERVES: II: Acuity is [...] Intrinsics 5 5 Ulnar Intrinsics 5 5 Urologic Nurse Strength 5 5 Hip Flexion 5 4* [...] encounter Miscellaneous Notes Miscellaneous - ONBASE SCAN [facility] - 05/02/2014 12:00 AM PDT iscellaneous - ONBASE SCAN [facility] - 05/02/2014 12:00 AM PDTEle ctronically signed by [facility] at 05/08/2014 8:56 AM PDTdocumented in [...] [address] | | | | | | [place] [address] | | | | | | [phone] | | | | | | | | +--------+ + + + + | 08/28/ | Office | Cardiology | Dora De La Torre | | | 2019 | Visit | | [address] | | | | | | [address] | | | | | | [place] [address] | | | | | | [phone] | | | | | | | [...]
--- OUTSIDE RECORDS SUMMARY | ~2020-05-25 | XMS | Encounter Summary ---
Demographics + + + | Address | [address] | | | [place] [address] | + + + | Home Phone [...] [place] | | | | | [address] | | + + + + + Care Team Providers + +------+ + | Care Drier Feeder Name | Role | Phone | [...] [address] | [address] [place], [place] | (Primary Dx) | | | | [place], [place] | [address] | | | | | [address] | | | | | | [phone] | | | +--------+ + + + [...] [address] | | | | | | [place] [address] | | | | | | [phone] | | | | | | | | +--------+ + + + + | 08/28/ | Office | Cardiology | Dora De La Torre | | | 2019 | Visit | | [address] | | | | | | [address] | | | | | | [place] [address] | | | | | | [phone] | | | | | | | [...] + | MISCELLANEOUS LAB | | | [phone] | + +---------+ + + | MISCELANIOUS LAB | | | [phone] | + +---------+ + + documented in this encounter Visit Diagnoses + + | Diagnosis | + + | Status post lumbar spinal fusion - Primary Arthrodesis status | + + documented in this encounter"
--- OUTSIDE RECORDS SUMMARY | ~2020-05-25 | XMS | Encounter Summary ---
Demographics + + + | Address | [address] | | | [place] [address] | + + + | Home Phone [...] [place] | | | | | [address] | | + + + + + Care Team Providers + +------+ + | Care Last Puller Name | Role | Phone | [...] | | | | | [address] | [place], [place] | | | | | [place], [place] | [address] | | | | | [address] | | | | | | [phone] | | | +--------+ + + + [...] encounter [place] Notes Anesthesia Preprocedure Evaluation - Olrando Patel MD - 06/25/2014 2:14 PM Eddie saeed of this note might be different from the original. ANESTHESIA PREANESTHESIA EVALUATION Cindy Arndt 58 y.o. female 1955 [id number] Scheduled procedure LAMINECTOMY PLIF/TLIF INSTRUMENTATION [1842] - L5-S1 TLIF Medical history, anesthesia, medications, allergy histories reviewed. ECG reviewed. Labs reviewed. ROS / Med History Ane (+) PONV. (-) difficult intubation, malignant hyperthermia . NPO status verified. CV (+) hypertension.(-) past NM. (+) Dysrhythmias (h/o PVCs) Exercise tolerance >4 [...] [address] | | | | | | [address] | | | | | | [place] [address] | | | | | | [phone] | | | | | | | | +--------+ + + + + | 08/28/ | Office | Cardiology | Dora De La Torre | | | 2020 | Visit | | [address] | | | | | | [address] | | | | | | [place] [address] | | | | | | [phone] | | | | | | | | +--------+ + + + + documented as of this encounter Visit Diagnoses Not on filedocumented in this encounter"
--- OUTSIDE RECORDS SUMMARY | ~2020-05-25 | XMS | Encounter Summary ---
Demographics + + + | Address | [address] | | | [place] [address] | + + + | Home Phone [...] [place] | | | | | [address] | | + + + + + Care Team Providers + +------+ + | Care Biztalk Developer Name | Role | Phone | [...] | | | | | | | [address] | | | | | | | Phone: | | | | | | | [phone] | | | | | | | Fax: | | | | | | | [phone] | | +--------+ + + + + + Reason for Visit + + + | Reason | Comments | + + + | Follow-up | 3 mo po | + + + Encounter Details +--------+---------+ + + + | Date | Type | Department | Care Team | Description | +--------+---------+ + + + | 09/27/ | [facility] | [facility] | Frandy Teresa, | Lumbar spondylosis | | 2013 | Visit | NEUROSURGERY [address] | DO [address] | (Primary Dx); S/P | | | | [address] | [address] [place], [place] | lumbar fusion | | | | [place], [place] | [address] | | | | | [address] | | | | | | [phone] | | | +--------+---------+ + + + [...] [facility] [place] [address] FAX: NEUROSURGERY FOLLOW-UP CHIEF COMPLAINT: Chief Complaint [...] Laterality: N/A; Surgeon: Frandy castellanos DO; Location: [facility] MAIN OR CURRENT MEDICATIONS: Current [...] Take 15 mg by mouth nightl y. [place]-3 Fatty Acids (FISH OIL CONCENTRATE) 1000 MG [...] in this encounter Miscellaneous Notes Miscellaneous - [facility] - 09/27/2014 12:00 AM PST documented [...] | | | | | [place] [address] | | | | | | [phone] | | | | | | | | +--------+ + + + + | 08/28/ | Office | Cardiology | Dora De La Torre | | | 2019 | Visit | | [address] | | | | | | [address] | | | | | | [place] [address] | | | | | | [phone] | | | | | | | | +--------+ + + + + + +---------+--------+ + + [...]
--- OUTSIDE RECORDS SUMMARY | ~2020-05-25 | XMS | Encounter Summary ---
Demographics + + + | Address | [address] | | | [place] [address] | + + + | Home Phone [...] [place] | | | | | [address] | | + + + + + Care Team Providers + +------+ + | Care Assessment Director Name | Role | Phone | [...] + + | 08/22/ | Documentati | [facility] | Katharine Moncada, | Other (urgent | | 2019 | on | CARDIOLOGY [place] | Technologist | report) | | | | [address] | | | | | | [place] | | | | | | [address] | | | | | | [phone] | | | +--------+ + + + [...] | | | | | [place] [address] | | | | | | [phone] | | | | | | | | +--------+ + + + + | 08/28/ | Office | Cardiology | Dora De La Torre | | | 2020 | Visit | | [address] | | | | | | [address] | | | | | | [place] [address] | | | | | | [phone] | | | | | | | | +--------+ + + + + documented as of this encounter Visit Diagnoses Not on filedocumented in this encounter"
--- OUTSIDE RECORDS SUMMARY | ~2020-05-25 | XMS | Encounter Summary ---
Demographics + + + | Address | [address] | | | [place] [address] | + + + | Home Phone [...] [place] | | | | | [address] | | + + + + + Care Team Providers + +------+ + | Care Vegetable Grower Name | Role | Phone | [...] | | | spondylolist | | [address] | | | | | [place] | | [place], | | | | | Spinal | | [place] [address] | | | | | stenosis, | | Phone: | | | | | lumbar | | [phone] | | | | | region, | | Fax: | | | | | without | | [phone] | | | | | neurogenic | [...] | | | | | | | MS [place] | | | | | | [...] | | | | | | ION MS | | | | | | | [...] | | | | | | SEG MS | | | | | | | [...] | | | | | [address] | [address] [place] | | | | | [place] | [address] [phone] | | | | | [address] | | | | | | [phone] | | | +--------+ + + + [...] +----+---+ + + | | 1 | [place] | | | | 2 | 43-degrees | | | | 3 | | | | | 1 | | | +----+---+ + + | | 1 | [place] off | | | | 4 | [...] EVALUATION Cindy Arndt 58 y.o. female 1955 [id number] Procedure: Procedure(s):MIS L5-S1 TRANSFORAMINAL LUMBAR INTERBODY FUSION [...] by Zen Mccord MD 07/02/2014 14:55 [facility] nesthesia Preproc edure Evaluation - Zen Mccord MD - 07/02/2014 8:36 AM PDTFormatting of this note m ight be different from the original. ANESTHESIA PREANESTHESIA EVALUATION Cindy Arndt 58 y.o. female 1955 [id number] Scheduled procedure LAMINECTOMY PLIF/TLIF INSTRUMENTATION [184] - MIS L5-S1 TRANSFORAMINAL LUMBAR INTERBODY FUSION Medical history, anesthesia, medications, allergy histories reviewed. ECG reviewed. Labs reviewed. ROS / Med History Ane (+) PONV. NPO status verified. CV (+) hypertension.(-) CAD, past [place], CHF, congenital heart disease, pulmonary hypertension, p [...] [address] | | | | | | [place] [address] | | | | | | [phone] | | | | | | | | +--------+ + + + + | 08/28/ | Office | Cardiology | Dora De La Torre | | | 2019 | Visit | | [address] | | | | | | [address] | | | | | | [place] [address] | | | | | | [phone] | | | | | | | [...]
--- OUTSIDE RECORDS SUMMARY | ~2020-05-25 | XMS | Encounter Summary ---
Demographics + + + | Address | [address] | | | [place] [address] | + + + | Home Phone [...] [place] | | | | | [address] | | + + + + + Care Team Providers + +------+ + | Care Security Guard Name | Role | Phone | + +------+ + | Natalee Andersen NP | PCP | | + +------+ + Encounter Details +--------+ + + + + | Date | Type | Department | Care Team | Description | +--------+ + + + + | 06/25/ | Hospital | [facility] | Frandy Teresa, | Diabetes mellitus | | 2014 | Encounter | MED CTR OR INTRA OP | DO [address] | (HCC) (Primary Dx) | | | | [address] | [address] [place], [place] | | | | | [place], [place] | [address] | | | | | [address] | | | | | | [phone] | | | +--------+ + + + [...] + + + +---------+ + + | Dun[place]-3 Fatty | Take 1,000 mg by | [...] this en counter H&P Notes [facility] - 06/21/2014 12:00 AM PDT [...] - 06/26/2014 12:00 AM PDT NBASE SCAN [facility] - 06/12/2014 12:00 AM PDTElectronically signed by Mariah Schulte at 06/12 7:30 AM PDTONBASE SCAN [facility] - 06/11/2014 12:00 AM PDT documented in this encounter Miscellaneous Notes Miscellaneous - ONBASE SCAN [facility] - 06/26/2014 12:00 AM PDT [...] stenosis, lumbar region, without neurogenic claudication ). Load Tester visit is in response to an electronic spiritual care consult request. Patient wa s resting comfortably in bed; she was attended by her mom and dad - both sate nearby and see med very attentive and supportive. Cindy is Yazidi, attends [employer], and is strong in her rangel. She is excited about taking care of her back problem and fe els very secure in Dr. Teresa's care. She welcomed prayer, and expressed appreciation for [facility] visit. Follow up with regular visits, emotional and spiritual support. iscellaneo us - ONBASE SCAN [facility] - 06/25/2014 12:00 AM PDTElectronically [...] CANTU | | | | | | [place] [address] | | | | | | [phone] | | | | | | | | +--------+ + + + + | 08/28/ | Office | Cardiology | Dora De La Torre | | | 2019 | Visit | | [address] | | | | | | [place] | | | | | | [place] [address] | | | | | | [phone] | | | | | | | [...] mL/min/1.73m2 | [facility] | | | Malaysian | RATE,ESTIMATED | | MEDICAL | | | | mL/min/1.53o1Keyj than | | CENTER - | | [...] + | [facility] | [address] | [place] | [phone] | | [facility] | | [address] | | | - LABORATORY | | | | + + + + + | [facility] | [address] | [place] | | | [facility] | | [address] | | | - LABORATORY [...] + | [facility] | [address] | [place] | [phone] | | [facility] | | [address] | | | - LABORATORY | | | | + + + + + | [facility] | [address] | [place], [place] | | | [facility] | | [address], [facility] | | | - LABORATORY [...] [address] | [place] | [phone] | | [facility] | | [address] | | | - LABORATORY | | | | + + + + + | [facility] | [address] | [place] | | | [facility] | | [id number] | | | - LABORATORY [...] St | [place] | | | [facility] | | [address] | | | - BLOOD BANK | [...] + | [facility] | [address] | [place], [place] | [phone] | | [facility] | | [address] | | | - LABORATORY | | | | + + + + + | [facility] | [address] | [place], [place] | | | [facility] | | [address] | | | - LABORATORY [...]
--- OUTSIDE RECORDS SUMMARY | ~2020-05-25 | XMS | Encounter Summary ---
Demographics + + + | Address | [address] | | | [place] [address] | + + + | Home Phone [...] [place] | | | | | [address] | | + + + + + Care Team Providers + +------+ + | Care City Planning Teacher Name | Role | Phone | [...] | | | [address] | [place] [address] | | | | | [place] [address] | | | | | | [phone] | | | +--------+ + + + [...] CANTU | | | | | | [place] [address] | | | | | | [phone] | | | | | | | | +--------+ + + + + | 08/28/ | Office | Cardiology | Dora De La Torre | | | 2019 | Visit | | [address] | | | | | | [address] | | | | | | [place] [address] | | | | | | [phone] | | | | | | | [...]
--- OUTSIDE RECORDS SUMMARY | ~2020-05-25 | XMS | Encounter Summary ---
Demographics + + + | Address | [address] [facility] [address] | | | [place] [address] | + + + | Home Phone [...] [place] | | | | | [address] | | + + + + + Care Team Providers + +------+ + | Care Environmental Engineering Professor Name | Role | Phone | [...] [address] | | | | | | [place], [place] | | | | | | [address] | | | +--------+ + + + [...]
--- OUTSIDE RECORDS SUMMARY | ~2020-05-25 | XMS | Encounter Summary ---
Demographics + + + | Address | [address] | | | [place] [address] | + + + | Home Phone [...] [place] | | | | | [address] | | + + + + + Care Team Providers + +------+ + | Care Senior Examiner Name | Role | Phone | [...] | | | | | [address] [facility] [address] | [place] [address] | | | | | [place] | [phone] | | | | | [address] | | | | | | [phone] | | | +--------+ + + + [...] Percocet prescription and faxed it to them ([facility]) this morning like I told them I would. Thank you for doing that, but it should not have been necessary. Telephone Encounter - Lincoln Cheema MD - 07/06/2014 8:59 PM PDTCalled regarding increased p ain. She was taking percocet. She was discharged to a [facility] on hydrocodone. I talked to the nurse [...] [place]ANTU | | | | | | [place] [address] | | | | | | [phone] | | | | | | | | +--------+ + + + + | 08/28/ | Office | Cardiology | Dora De La Torre | | | 2019 | Visit | | [address] | | | | | | [address] | | | | | | [place] [address] | | | | | | [phone] | | | | | | | | +--------+ + + + + documented as of this encounter Visit Diagnoses Not on filedocumented in this encounter"
--- OUTSIDE RECORDS SUMMARY | ~2020-05-25 | XMS | Encounter Summary ---
Demographics + + + | Address | [address] | | | [place] [address] | + + + | Home Phone [...] [place] | | | | | [address] | | + + + + + Care Team Providers + +------+ + | Care Electronic Engraver Name | Role | Phone | + +------+ + PCP | Unavailable | + +------+ + Encounter Details +--------+ + + + + | Date | Type | Department | Care Team | Description | +--------+ + + + + | 04/27/ | Hospital | [facility] | Sage Garza MD | | | 2001 | Encounter | HOSPITAL EMERGENCY | | | | | | CENTER [address] | [address] [place], [place] | | | | | | [address] | | | | | | [phone] | | | +--------+ + + + [...] | | | | | [place] [address] | | | | | | [phone] | | | | | | | | +--------+ + + + + | 08/28/ | Office | Cardiology | Dora De La Torre | | | 2020 | Visit | | [address] | | | | | | [place] | | | | | | [place] [address] | | | | | | [phone] | | | | | | | | +--------+ + + + + documented as of this encounter Visit Diagnoses Not on filedocumented in this encounter"
--- OUTSIDE RECORDS SUMMARY | ~2020-05-25 | XMS | Encounter Summary ---
Demographics + + + | Address | [address] | | | [place] [address] | + + + | Home Phone [...] [place] | | | | | [address] | | + + + + + Care Team Providers + +------+ + | Care Survey Superintendent Name | Role | Phone | [...] | Transcriptions | + + | Interface, Tuckpointer Cleaner Caulker In - 10/24/2006 3:09 AM PST | | [facility] | | Road [place], [place] [address] [place] | | [facility] HospitalOPERATION RECORDMed Rec No.: [id number] Date: | [...]
--- OUTSIDE RECORDS SUMMARY | ~2020-05-25 | XMS | Encounter Summary ---
Demographics + + + | Address | [address] | | | [place] [address] | + + + | Home Phone [...] [place], [place] | | | | | [address] | | + + + + + Care Team Providers + +------+ + | Care Numerical Control Machine Tool Operator Name | Role | Phone | + +------+ + PCP | Unavailable | + +------+ + Encounter Details +--------+ + + + + | Date | Type | Department | Care Team | Description | +--------+ + + + + | 10/29/ | Hospital | [facility] | | | | 1994 | Encounter | MED CTR LABORATORY | | | | | | [address] | | | | | | [place] | | | | | | [address] | | | | | | [phone] | | | +--------+ + + + [...] | | | | | [place] [address] | | | | | | [phone] | | | | | | | | +--------+ + + + + | 08/28/ | Office | Cardiology | Dora De La Torre | | | 2020 | Visit | | [address] | | | | | | [address] | | | | | | [place] [address] | | | | | | [phone] | | | | | | | | +--------+ + + + + documented as of this encounter Visit Diagnoses Not on filedocumented in this encounter"
--- OUTSIDE RECORDS SUMMARY | ~2020-05-25 | XMS | Encounter Summary ---
Demographics + + + | Address | [address] | | | [place] [address] | + + + | Home Phone [...] [place] | | | | | [address] | | + + + + + Care Team Providers + +------+ + | Care Medical Research Associate Name | Role | Phone | + +------+ + | Natalee Andersen NP | PCP | | + +------+ + Encounter Details +--------+ + + + + | Date | Type | Department | Care Team | Description | +--------+ + + + + | 06/26/ | Hospital | [facility] | Heather Cordero PT | | | 2014 | Encounter | MED CTR ACUTE | [address] | | | | | PHYSICAL THERAPY | [place] | | | | | [address] [place] | [address] | | | | | [place] [address] | | | | | | [phone] | | | +--------+ + + + [...] + + +---------+ + + | [place]-3 Fatty | Take 1,000 mg by | [...] | | | | | [place] [address] | | | | | | [phone] | | | | | | | | +--------+ + + + + | 08/28/ | Office | Cardiology | Dora De La Torre | | | 2020 | Visit | | [address] | | | | | | [address] | | | | | | [place] [address] | | | | | | [phone] | | | | | | | | +--------+ + + + + documented as of this encounter Visit Diagnoses Not on filedocumented in this encounter"
--- OUTSIDE RECORDS SUMMARY | ~2020-05-25 | XMS | Encounter Summary ---
Demographics + + + | Address | [address] | | | [place] [address] | + + + | Home Phone [...] [place], [place] | | | | | [address] | | + + + + + Care Team Providers + +------+ + | Care Erosion Control Coordinator Name | Role | Phone | + +------+ + PCP | Unavailable | + +------+ + Encounter Details +--------+ + + + + | Date | Type | Department | Care Team | Description | +--------+ + + + + | 05/29/ | Hospital | [facility] | | | | 1991 | Encounter | MED CTR LABORATORY | | | | | | [address] | | | | | | [place] | | | | | | [address] | | | | | | [phone] | | | +--------+ + + + [...] | | | | | [place] [address] | | | | | | [phone] | | | | | | | | +--------+ + + + + | 08/28/ | Office | Cardiology | Dora De La Torre | | | 2020 | Visit | | [address] | | | | | | [address] | | | | | | [place] [address] | | | | | | [phone] | | | | | | | | +--------+ + + + + documented as of this encounter Visit Diagnoses Not on filedocumented in this encounter"
--- OUTSIDE RECORDS SUMMARY | ~2020-05-25 | XMS | Encounter Summary ---
Demographics + + + | Address | [address] | | | [place] [address] | + + + | Home Phone [...] [place] | | | | | [address] | | + + + + + Care Team Providers + +------+ + | Care Gold Nib Grinder Name | Role | Phone | [...] | ) | | | | [address] [facility] [address] | [address] [place], [place] | | | | | [place], [place] | [id number] | | | | | [address] | | | | | | [phone] | | | +--------+ + + + [...] 07/08/2014 11:04 [facility] SHAYNE ARAGON documented in [...] CANTU | | | | | | [place] [address] | | | | | | [phone] | | | | | | | | +--------+ + + + + | 08/28/ | Office | Cardiology | Dora De La Torre | | | 2020 | Visit | | [address] | | | | | | [address] | | | | | | [place] [address] | | | | | | [phone] | | | | | | | | +--------+ + + + + documented as of this encounter Visit Diagnoses Not on filedocumented in this encounter"
--- OUTSIDE RECORDS SUMMARY | ~2020-05-25 | XMS | Encounter Summary ---
Demographics + + + | Address | [address] | | | [place] [address] | + + + | Home Phone [...] [place] | | | | | [address] | | + + + + + Care Team Providers + +------+ + | Care Power Ballast Machine Operator Name | Role | Phone [...] [address] | [address] [place], [place] | fusion | | | | [place], [place] | [address] | | | | | [address] | | | | | | [phone] | | | +--------+ + + + [...] C[address]U | | | | | | [place] [address] | | | | | | [phone] | | | | | | | | +--------+ + + + + | 08/28/ | Office | Cardiology | Dora De La Torre | | | 2019 | Visit | | [address] | | | | | | [address] | | | | | | [place] [address] | | | | | | [phone] | | | | | | | | +--------+ + + + + documented as of this encounter Visit Diagnoses + + | Diagnosis | + + | Lumbago - Primary | + + | S/P lumbar fusion Arthrodesis status | + + documented in this encounter"
--- OUTSIDE RECORDS SUMMARY | ~2020-05-25 | XMS | Encounter Summary ---
Demographics + + + | Address | [address] | | | [place] [address] | + + + | Home Phone [...] [place] | | | | | [address] | | + + + + + Care Team Providers + +------+ + | Care Local Tanker Truck Driver Name | Role | Phone [...] | SLEEP DISORDER [address] | [address] | | | | | [address] [place] | [place], [place] | | | | | [place] [address] | [address] | | | | | [phone] | | | +--------+ + + + [...] [place]U | | | | | | [place] [address] | | | | | | [phone] | | | | | | | | +--------+ + + + + | 08/28/ | Office | Cardiology | Dora De La Torre | | | 2019 | Visit | | [address] | | | | | | [address] | | | | | | [place] [address] | | | | | | [phone] | | | | | | | | +--------+ + + + + documented as of this encounter Visit Diagnoses Not on filedocumented in this encounter"
--- OUTSIDE RECORDS SUMMARY | ~2020-05-25 | XMS | Encounter Summary ---
Demographics + + + | Address | [address] | | | [place] [address] | + + + | Home Phone [...] [place] | | | | | [address] | | + + + + + Care Team Providers + +------+ + | Care Help Desk Associate Name | Role | Phone | [...] | Services | ogy | Epigastric | [facility], | Tyrese Shelley MD | | | Required | | abdominal | [place], | [address], | | | | | pain GERD | SOLAR ENERGY SYSTEM INSTALLER [address] | [address] | | | | | (gastroesoph | [address] | [place], | | | | | ageal reflux | [address] | [place] [address] | | | | | disease) | [place], | Phone: | | | | | Fatty liver | [place] [address] | [phone] | | | | | DM | Phone: | Fax: | | | | | (diabetes | [phone] | [phone] | | | | | mellitus) | Fax: | | | | | | (HCC) | [phone] | | +--------+ + + + + + Reason for Visit + + + | Reason | Comments | + + + | Gastroesophageal | epigastric pain | | Reflux | | + + + Encounter Details +--------+---------+ + + + | Date | Type | Department | Care Team | Description | +--------+---------+ + + + | 03/06/ | Office | [facility] | [facility], | Epigastric abdominal | | 2012 | Visit | GASTROENTEROLOGY | FORTUNATO Thomas [address] | pain (Primary Dx); | | | | [address] | [address] | GERD | | | | [address] [place], [place] | [place] | (gastroesophageal | | | | [address] | [address] | reflux disease); | | | | [phone] | | Fatty liver; DM | | [...] years ago by Dr. Saravanan Tsai, in [facility]. Colonoscopy was done 05/[address] Hamlin in [facility]. Allergies Allergen Reactions Demerol Duloxetine Erythromycin Fluoxetine [...] encounter Miscellaneous Notes Miscellaneous - ONBASE SCAN [facility] - 03/06/2013 12:00 AM PDT iscellaneous - [facility] - 03/06/2013 12:00 AM PDTEle ctronically signed by Mariah Schulte at 04/09/2013 9:48 AM PDTMiscellaneous - ONBASE SCAN [facility] - 03/06/2013 12:00 AM PDT d [...] C[address]U | | | | | | [place] [address] | | | | | | [phone] | | | | | | | | +--------+ + + + + | 08/28/ | Office | Cardiology | Dora De La Torre | | | 2019 | Visit | | [address] | | | | | | [address] | | | | | | [place] [address] | | | | | | [phone] | | | | | | | [...]
--- OUTSIDE RECORDS SUMMARY | ~2020-05-25 | XMS | Encounter Summary ---
Demographics + + + | Address | [address] | | | [place] [address] | + + + | Home Phone [...] Author | [facility] | | | and [...] [place] | | | | | [address] | | + + + + + Care Team Providers + +------+ + | Care Coach Cleaner Name | Role | Phone | [...] + + | 07/10/ | Telephone | [facility] | Frandy Teresa, | Imaging Only (1 year | | 2014 | | NEUROSURGERY [address] | DO [address] | x-ray ) | | | | [address] | [address] [place], [place] | | | | | [place], [place] | [address] | | | | | [address] | | | | | | [phone] | | | +--------+ + + + [...] [address]U | | | | | | [place] [address] | | | | | | [phone] | | | | | | | | +--------+ + + + + | 08/28/ | Office | Cardiology | Dora De La Torre | | | 2019 | Visit | | [address] | | | | | | [address] | | | | | | [place] [address] | | | | | | [phone] | | | | | | | | +--------+ + + + + documented as of this encounter Visit Diagnoses Not on filedocumented in this encounter"
--- OUTSIDE RECORDS SUMMARY | ~2020-05-25 | XMS | Encounter Summary ---
Demographics + + + | Address | [address] | | | [place] [address] | + + + | Home Phone | | + + + | Preferred Language | Unknown | + + + | Marital Status | Single | + + + | Religion Affiliation | Unknown | + + + [...] [place] | | | | | [address] | | + + + + + Care Team Providers + +------+ + | Care Box Press Operator Name | Role | Phone [...] | Transcriptions | + + | Interface, Computer Systems Information Director In - 11/04/2006 3:03 AM PST | | [address] | | [place], [place] [address] [facility] and | | ClinicsOPERATION RECORDMed Rec No.: [...] skin retractor was put in place. The [place] elevators wereused to separate the | | [...]
--- OUTSIDE RECORDS SUMMARY | ~2020-05-25 | XMS | Encounter Summary ---
Demographics + + + | Address | [address] | | | [place] [address] | + + + | Home Phone [...] [place] | | | | | [address] | | + + + + + Care Team Providers + +------+ + | Care Laborer Landscape Name | Role | Phone | + [...] | | | [address], | [place] [address] | | | | | [place] [address] | [phone] | | | | | [phone] | | | +--------+--------+ + + + [...] | | | | | [place] [address] | | | | | | [phone] | | | | | | | | +--------+ + + + + | 08/28/ | Office | Cardiology | Dora De La Torre | | | 2020 | Visit | | [address] | | | | | | [address] | | | | | | [place] [address] | | | | | | [phone] | | | | | | | | +--------+ + + + + documented as of this encounter Visit Diagnoses + + | Diagnosis | + + | Essential hypertension - Primary Unspecified essential hypertension | + + documented in this encounter"
--- OUTSIDE RECORDS SUMMARY | ~2020-05-25 | XMS | Encounter Summary ---
Demographics + + + | Address | [address] | | | [place] [address] | + + + | Home Phone [...] [place] | | | | | [address] | | + + + + + Care Team Providers + +------+ + | Care Net Software Developer Name | Role | Phone | [...] | 02/01/ | Telephone | [facility] | Frandy Teresa, | Imaging Only | | 2019 | | NEUROSURGERY [address] | DO [address] | | | | | [address] | [address] [place], [place] | | | | | [place], [place] | [id number] | | | | | [address] | | | | | | [phone] | | | +--------+ + + + [...] [place] | | | | | | [facility] [place] [address] | | | | | | [phone] | | | | | | | | +--------+ + + + + | 08/28/ | Office | Cardiology | Dora De La Torre | | | 2020 | Visit | | [address] | | | | | | [address] | | | | | | [place] [address] | | | | | | [phone] | | | | | | | | +--------+ + + + + documented as of this encounter Visit Diagnoses Not on filedocumented in this encounter"
--- OUTSIDE RECORDS SUMMARY | ~2020-05-25 | XMS | Encounter Summary ---
Demographics + + + | Address | [address] | | | [place] [address] | + + + | Home Phone [...] [place], [place] | | | | | [address] | | + + + + + Care Team Providers + +------+ + | Care Screen Printing Stencil Preparer Name | Role | Phone | + +------+ + PCP | Unavailable | + +------+ + Encounter Details +--------+ + + + + | Date | Type | Department | Care Team | Description | +--------+ + + + + | 02/28/ | Hospital | [facility] | Deon Gonzales | | | 2012 | Encounter | MED CTR SLEEP | MD [address] | | | | | [place] [address] | [facility] | | | | | [place], [place] | [place] [address] | | | | | [address] | [phone] | | | | | [phone] | | | +--------+ + + + [...] - 02/29/2012 2:36 PM PDTDATE: 02/29/2012 cc: [facility] Deon Gonzales Jr., MD, [facility] POSITIVE PRESSURE TITRATION STUDY CLINICAL INFORMATION: This [...] the patient scored 18 points on the [place] Sleepiness Scale, which endorses a severe degree [...] advised. Deon Gonzales Jr., MD, FAASM Diplomate [place] Island[place] Board of Internal Medicine Diplomate in Sleep Medicine Track Hoe Operator, [facility] Clinical Telegraph Repeater Installer Katelin joy [facility] JOB #: [id number] EXT JOB #:[id number] EDITED: 03/03/2012 07:26 <Electronically Signed by Deon [...] CANTU | | | | | | [place] [address] | | | | | | [phone] | | | | | | | | +--------+ + + + + | 08/28/ | Office | Cardiology | Dora De La Torre | | | 2019 | Visit | | [address] | | | | | | [address] | | | | | | [place] [address] | | | | | | [phone] | | | | | | | | +--------+ + + + + documented as of this encounter Visit Diagnoses Not on filedocumented in this encounter"
--- OUTSIDE RECORDS SUMMARY | ~2020-05-25 | XMS | Encounter Summary ---
Demographics + + + | Address | [address] | | | [place] [address] | + + + | Home Phone [...] [place] | | | | | [address] | | + + + + + Care Team Providers + +------+ + | Care Android Platform Developer Name | Role | Phone | + +------+ + | Basim Bolanos MD | PCP | | + +------+ + Encounter Details +--------+ + + + + | Date | Type | Department | Care Team | Description | +--------+ + + + + | 02/22/ | Abstract | [facility] [place] | [facility], | | | 2012 | | GASTROENTEROLOGY | FORTUNATO Thomas [address] | | | | | [address] [place] | [address] | | | | | [address] [place], [place] | [place], [place] | | | | | [address] | [address] | | | | | [phone] | | | +--------+ + + + [...] | | | | | [place] [address] | | | | | | [phone] | | | | | | | | +--------+ + + + + | 08/28/ | Office | Cardiology | Dora De La Torre | | | 2019 | Visit | | [address] | | | | | | [address] | | | | | | [place] [address] | | | | | | [phone] | | | | | | | | +--------+ + + + + documented as of this encounter Visit Diagnoses Not on filedocumented in this encounter"
--- OUTSIDE RECORDS SUMMARY | ~2020-05-25 | XMS | Encounter Summary ---
Demographics + + + | Address | [address] | | | [place] [address] | + + + | Home Phone [...] [place] | | | | | [address] | | + + + + + Care Team Providers + +------+ + | Care Oil And Gas Specialist Name | Role | Phone [...] + | 06/12/ | Office | [facility] | Chris Nicole, | Spondylisthesis | | 2013 | Visit | NEUROSURGERY [address] | PA-C [address] | (Primary Dx); | | | | [address] | [place], [place] | Radiculopathy of | | | | [place], [place] | [address] | leg; Lumbar spine | | | | [address] | | instability; Lumbar | | | | [phone] | | spondylosis; | | | | [...] f rom the original. ZANE Castillo [address] [place], [place] [address] FAX: NEUROSURGERY HISTORY AND PHYSICAL EXAMINATION CHIEF [...] Take 15 mg by mouth nightl y. [place]-3 Fatty Acids (FISH OIL CONCENTRATE) 1000 MG [...] has no apparent deficits with short or intermodal dispatcher memory. CRANIAL NERVES: II: Acuity is intact. [...] Intrinsics 5 5 Ulnar Intrinsics 5 5 Hot Roll Inspector Strength 5 5 Hip Flexion 5 [...] [address] | | | | | | [place] [address] | | | | | | [phone] | | | | | | | | +--------+ + + + + | 08/28/ | Office | Cardiology | Dora De La Torre | | | 2019 | Visit | | [address] | | | | | | [address] | | | | | | [place] [address] | | | | | | [phone] | | | | | | | [...]
--- OUTSIDE RECORDS SUMMARY | ~2020-05-25 | XMS | Encounter Summary ---
Demographics + + + | Address | [address] | | | [place] [address] | + + + | Home Phone [...] [place] | | | | | [address] | | + + + + + Care Team Providers + +------+ + | Care Integrated Marketing Specialist Name | Role | Phone [...] | 2018 | | CARDIOLOGY [place], Rn Integrity | worried about paying | | | | [address] | | for monitor. ) | | | | [place] | | | | | | [address] | | | | | | [phone] | | | +--------+ + + + [...] Miscellaneous Notes Telephone Encounter - Ashley Chávez, Rn Integrity - 07/24/2019 11:13 AM Seferino t says [...] gals to see what can be done. JDW:CARE COMPANION-AAMA. [facility] umented in this encounter Plan of Treatment [...] [address] | | | | | | [place] [address] | | | | | | [phone] | | | | | | | | +--------+ + + + + | 08/28/ | Office | Cardiology | Dora De La Torre | | | 2019 | Visit | | [address] | | | | | | [address] | | | | | | [place] [address] | | | | | | [phone] | | | | | | | | +--------+ + + + + documented as of this encounter Visit Diagnoses Not on filedocumented in this encounter"
--- OUTSIDE RECORDS SUMMARY | ~2020-05-25 | XMS | Encounter Summary ---
Demographics + + + | Address | [address] | | | [place] [address] | + + + | Home Phone [...] [place], [place] | | | | | [address] | | + + + + + Care Team Providers + +------+ + | Care Medicare Nurse Name | Role | Phone | + +------+ + PCP | Unavailable | + +------+ + Encounter Details +--------+ + + + + | Date | Type | Department | Care Team | Description | +--------+ + + + + | 02/16/ | Hospital | [facility] | | | | 1994 | Encounter | MED CTR LABORATORY | | | | | | [address] | | | | | | [place] | | | | | | [address] | | | | | | [phone] | | | +--------+ + + + [...] | | | | | [place] [address] | | | | | | [phone] | | | | | | | | +--------+ + + + + | 08/28/ | Office | Cardiology | Dora De La Torre | | | 2020 | Visit | | [address] | | | | | | [address] | | | | | | [place] [address] | | | | | | [phone] | | | | | | | | +--------+ + + + + documented as of this encounter Visit Diagnoses Not on filedocumented in this encounter"
--- OUTSIDE RECORDS SUMMARY | ~2020-05-25 | XMS | Encounter Summary ---
Demographics + + + | Address | [address] | | | [place] [address] | + + + | Home Phone [...] [place] | | | | | [address] | | + + + + + Care Team Providers + +------+ + | Care Esthetics Instructor Name | Role | Phone | [...] + + | 07/19/ | Office | [facility] | Desiree Peterson DO | Syncope, unspecified | | 2019 | Visit | CARDIOLOGY [place] | [address] | syncope type | | | | [address] | [place], [place] | (Primary Dx); | | | | [address] [place] [address] | [address] | Essential | | | | [place] | | hypertension; | | | | [address] | | Irregular heartbeat | | | | [phone] | | | +--------+---------+ + + + [...] Peterson DO - 07/19/2019 10:40 AM PDT [facility] Cardiology Cardiology Follow Up Note Reason for [...] rtake in exercise. She recently got a [employer] and has been walking him more regularly. [...] by mouth daily. Blood Glucose Monitoring Suppl (Nuventix VERIO FLEX SYSTEM) w/Device KIT by Does not ap ply route. budesonide-formoterol (SYMBICORT) 160-4.5 MCG/ACT inhaler Inhale 2 puffs into the lungs 2 (two) times daily. Calcium Carbonate Antacid 1000 MG tablet Take 1,000 mg by mouth 3 (three) times daily. Cholecalciferol (VITAMIN D3) 96675 units CAPS Take by mouth once a [...] | | | | | [place] [address] | | | | | | [phone] | | | | | | | | +--------+ + + + + | 08/28/ | Office | Cardiology | Dora De La Torre | | | 2020 | Visit | | [address] | | | | | | [address] | | | | | | [place] [address] | | | | | | [phone] | | | | | | | [...]
--- OUTSIDE RECORDS SUMMARY | ~2020-05-25 | XMS | Encounter Summary ---
Demographics + + + | Address | [address] | | | [place] [address] | + + + | Home Phone [...] [place], [place] | | | | | [address] | | + + + + + Care Team Providers + +------+ + | Care Inseminator Name | Role | Phone | + +------+ + PCP | Unavailable | + +------+ + Encounter Details +--------+ + + + + | Date | Type | Department | Care Team | Description | +--------+ + + + + | 01/16/ | Hospital | [facility] | | | | 2002 | Encounter | MED CTR XRAY [address] | | | | | | [address] | | | | | | [place] [address] | | | | | | [phone] | | | +--------+ + + + [...] | | | | | [place] [address] | | | | | | [phone] | | | | | | | | +--------+ + + + + | 08/28/ | Office | Cardiology | Dora De La Torre | | | 2019 | Visit | | [address] | | | | | | [address] | | | | | | [place] [address] | | | | | | [phone] | | | | | | | | +--------+ + + + + documented as of this encounter Visit Diagnoses Not on filedocumented in this encounter"
--- OUTSIDE RECORDS SUMMARY | ~2020-05-25 | XMS | Encounter Summary ---
Demographics + + + | Address | [address] | | | [place] [address] | + + + | Home Phone [...] [place] | | | | | [address] | | + + + + + Care Team Providers + +------+ + | Care Nurse Infection Control Name | Role | Phone | [...] + + | 10/22/ | Telephone | [facility] | Susu Peralta, | Other | | 2019 | | CARDIOLOGY [place] Nath RN | | | | | [address] | | | | | | [place], [place] | | | | | | [address] | | | | | | [phone] | | | +--------+ + + + [...] | | | | | [place] [address] | | | | | | [phone] | | | | | | | | +--------+ + + + + | 08/28/ | Office | Cardiology | Dora De La Torre | | | 2019 | Visit | | [address]nedez [address] | | | | | | [address] | | | | | | [place] [address] | | | | | | [phone] | | | | | | | | +--------+ + + + + documented as of this encounter Visit Diagnoses Not on filedocumented in this encounter"
--- OUTSIDE RECORDS SUMMARY | ~2020-05-25 | XMS | Encounter Summary ---
Demographics + + + | Address | [address] | | | [place] [address] | + + + | Home Phone [...] [place] | | | | | [address] | | + + + + + Care Team Providers + +------+ + | Care Marketing Sales Consultant Name | Role | Phone [...] + + | 08/20/ | Documentati | [facility] | Katharine Moncada, | Other (urgent | | 2019 | on | CARDIOLOGY [place] | Technologist | report) | | | | [address] | | | | | | [place] | | | | | | [address] | | | | | | [phone] | | | +--------+ + + + [...] | | | | | [place] [address] | | | | | | [phone] | | | | | | | | +--------+ + + + + | 08/28/ | Office | Cardiology | Dora De La Torre | | | 2020 | Visit | | [address] | | | | | | [address] | | | | | | [place] [address] | | | | | | [phone] | | | | | | | | +--------+ + + + + documented as of this encounter Visit Diagnoses Not on filedocumented in this encounter"
--- OUTSIDE RECORDS SUMMARY | ~2020-05-25 | XMS | Encounter Summary ---
Demographics + + + | Address | [address] | | | [place] [address] | + + + | Home Phone [...] [place] | | | | | [address] | | + + + + + Care Team Providers + +------+ + | Care Lead Cargoman Name | Role | Phone | + [...] + + | 08/13/ | Documentati | [facility] | Katharine Moncada, | Other (urgent | | 2019 | on | CARDIOLOGY [place] | Technologist | report) | | | | [address] | | | | | | [place] | | | | | | [address] | | | | | | [phone] | | | +--------+ + + + [...] | | | | | [place] [address] | | | | | | [phone] | | | | | | | | +--------+ + + + + | 08/28/ | Office | Cardiology | Dora De La Torre | | | 2020 | Visit | | [address] | | | | | | [address] | | | | | | [place] [address] | | | | | | [phone] | | | | | | | | +--------+ + + + + documented as of this encounter Visit Diagnoses Not on filedocumented in this encounter"
--- OUTSIDE RECORDS SUMMARY | ~2020-05-25 | XMS | Encounter Summary ---
Demographics + + + | Address | [address] | | | [place] [address] | + + + | Home Phone [...] [place] | | | | | [address] | | + + + + + Care Team Providers + +------+ + | Care Carry All Driver Name | Role | Phone | [...] + + | 06/28/ | Telephone | [facility] | Ashley Chávez | Other (Patient | | 2018 | | CARDIOLOGY [place] Ab[place], Sanitary Chemist | called to cancel her | | | | [address] | | appointment) | | | | [place] | | | | | | [address] | | | | | | [phone] | | | +--------+ + + + [...] Miscellaneous Notes Telephone Encounter - Ashley Chávez, Sanitary Chemist - 06/28/2019 2:12 PM PDTPatigutierrez t said that she already got the result for her ECHO, so she decided to cancel her FU with Dr Peterson. I asked patient if she wanted to reschedule for another time, and she said she wants to FU as needed. I went ahead and canceled her appointment. [facility] Plan of [...] [address] | | | | | | [place] [address] | | | | | | [phone] | | | | | | | | +--------+ + + + + | 08/28/ | Office | Cardiology | Dora De La Torre | | | 2019 | Visit | | [address] | | | | | | [address] | | | | | | [place] [address] | | | | | | [phone] | | | | | | | | +--------+ + + + + documented as of this encounter Visit Diagnoses Not on filedocumented in this encounter"
--- OUTSIDE RECORDS SUMMARY | ~2020-05-25 | XMS | Encounter Summary ---
Demographics + + + | Address | [address] | | | [place] [address] | + + + | Home Phone | | + + + | Preferred Language | Unknown | + + + | Marital Status | Single | + + + | Holiness Affiliation | Unknown | + + + [...] [place] | | | | | [address] | | + + + + + Care Team Providers + +------+ + | Care Directory Compiler Name | Role | Phone | + [...] [id number] | | | | | | [place], [place] | | | | | | [address] | | | | | | [phone] | | | +--------+ + + + [...] | + + + + + | [facility] | [address] | [place] [address] | | | PATHOLOGY | [address] [...] Re | | | | | | [address] | | | | + + + + + + + + | Specimen | + + | | + + + + + + + | Performing | Address | City/State/Zipcode | Phone Number | | Organization | | | | + + + + + | [facility] | [address] | [place] [address] | | | PATHOLOGY | [address] [...] Re | | | | | | [phone] | | | | + + + + + + + + | Specimen | + + | | + + + + + + + | Performing | Address | City/State/Zipcode | Phone Number | | Organization | | | | + + + + + | [facility] | [address] | [place] [address] | | | PATHOLOGY | [address] [...] Re | | | | | | [address]88[address] | | | | + + + + + + + + | Specimen | + + | | + + + + + + + | Performing | Address | City/State/Zipcode | Phone Number | | Organization | | | | + + + + + | [facility] | [address] | [place] [address] | | | PATHOLOGY | [address] [...] Re | | | | | | [address]188[address] | | | | + + + + + + + + | Specimen | + + | | + + + + + + + | Performing | Address | City/State/Zipcode | Phone Number | | Organization | | | | + + + + + | [facility] | [address] | [place] [address] | | | PATHOLOGY | [address] | | | + + + + + documented in this encounter Visit Diagnoses Not on filedocumented in this encounter"
--- OUTSIDE RECORDS SUMMARY | ~2020-05-25 | XMS | Encounter Summary ---
Demographics + + + | Address | [address] | | | [place] [address] | + + + | Home Phone [...] [place] | | | | | [address] | | + + + + + Care Team Providers + +------+ + | Care Community Health Nurse Name | Role | Phone | [...] + + | 08/20/ | Documentati | [facility] | Katharine Moncada, | Other (urgent | | 2019 | on | CARDIOLOGY [place] | Technologist | report) | | | | [address] | | | | | | [place] | | | | | | [address] | | | | | | [phone] | | | +--------+ + + + [...] | | | | | [place] [address] | | | | | | [phone] | | | | | | | | +--------+ + + + + | 08/28/ | Office | Cardiology | Dora De La Torre | | | 2020 | Visit | | [address] | | | | | | [address] | | | | | | [place] [address] | | | | | | [phone] | | | | | | | | +--------+ + + + + documented as of this encounter Visit Diagnoses Not on filedocumented in this encounter"
--- OUTSIDE RECORDS SUMMARY | ~2020-05-25 | XMS | Encounter Summary ---
Demographics + + + | Address | [address] | | | [place] [address] | + + + | Home Phone [...] [place], [place] | | | | | [address] | | + + + + + Care Team Providers + +------+ + | Care Gift Officer Name | Role | Phone | + +------+ + PCP | Unavailable | + +------+ + Encounter Details +--------+ + + + + | Date | Type | Department | Care Team | Description | +--------+ + + + + | 03/11/ | [facility] | [facility] | Deon Gonzales | | | 2004 | Encounter | MED CTR SLEEP | MD [address] | | | | | [place] [address] | [address] [facility] | | | | | [place], [place] | [place] [address] | | | | | [address] | [phone] | | | | | [phone] | | | +--------+ + + + [...] | | | | | [place] [address] | | | | | | [phone] | | | | | | | | +--------+ + + + + | 08/28/ | Office | Cardiology | Dora De La Torre | | | 2019 | Visit | | [address] | | | | | | [address] | | | | | | [place] [address] | | | | | | [phone] | | | | | | | | +--------+ + + + + documented as of this encounter Visit Diagnoses Not on filedocumented in this encounter"
--- OUTSIDE RECORDS SUMMARY | ~2020-05-25 | XMS | Encounter Summary ---
Demographics + + + | Address | [address] | | | [place] [address] | + + + | Home Phone [...] [place], [place] | | | | | [address] | | + + + + + Care Team Providers + +------+ + | Care Siding Mechanic Name | Role | Phone | + +------+ + PCP | Unavailable | + +------+ + Encounter Details +--------+ + + + + | Date | Type | Department | Care Team | Description | +--------+ + + + + | 12/31/ | Hospital | [facility] | | | | 1996 | Encounter | MED CTR XRAY [address] | | | | | | [address] | | | | | | [place] [address] | | | | | | [phone] | | | +--------+ + + + [...] | | | | | [place] [address] | | | | | | [phone] | | | | | | | | +--------+ + + + + | 08/28/ | Office | Cardiology | Dora De La Torre | | | 2019 | Visit | | [address] | | | | | | [address] | | | | | | [place] [address] | | | | | | [phone] | | | | | | | | +--------+ + + + + documented as of this encounter Visit Diagnoses Not on filedocumented in this encounter"
--- OUTSIDE RECORDS SUMMARY | ~2020-05-25 | XMS | Encounter Summary ---
Demographics + + + | Address | [address] | | | [place] [address] | + + + | Home Phone [...] [place], [place] | | | | | [address] | | + + + + + Care Team Providers + +------+ + | Care Cephalometric Tracer Name | Role | Phone | + [...] | | | 1991 | | [place] [address] | | | | | | [phone] | | | +--------+ + + + [...] [address] | | | | | | [place] [address] | | | | | | [phone] | | | | | | | | +--------+ + + + + | 08/28/ | Office | Cardiology | Dora De La Torre | | | 2019 | Visit | | [address] | | | | | | [address] | | | | | | [place] [address] | | | | | | [phone] | | | | | | | | +--------+ + + + + documented as of this encounter Visit Diagnoses Not on filedocumented in this encounter"
--- OUTSIDE RECORDS SUMMARY | ~2020-05-25 | XMS | Encounter Summary ---
Demographics + + + | Address | [address] | | | [place] [address] | + + + | Home Phone [...] [place] | | | | | [address] | | + + + + + Care Team Providers + +------+ + | Care Applique Cutter Name | Role | Phone | [...] [place] | | | | | | [address] | | | | | | [phone] | | | +--------+ + + + [...] | | | | | [place] [address] | | | | | | [phone] | | | | | | | | +--------+ + + + + | 08/28/ | Office | Cardiology | Dora De La Torre | | | 2020 | Visit | | [address] | | | | | | [address] | | | | | | [place] [id number] | | | | | | [phone] | | | | | | | | +--------+ + + + + documented as of this encounter Visit Diagnoses Not on filedocumented in this encounter"
--- OUTSIDE RECORDS SUMMARY | ~2020-05-25 | XMS | Encounter Summary ---
Demographics + + + | Address | [address] | | | [place] [address] | + + + | Home Phone [...] [place], [place] | | | | | [address] | | + + + + + Care Team Providers + +------+ + | Care Cw Operator Name | Role | Phone | + +------+ + PCP | Unavailable | + +------+ + Encounter Details +--------+ + + + + | Date | Type | Department | Care Team | Description | +--------+ + + + + | 12/22/ | Hospital | [facility] | | | | 1993 - | Encounter | MED CTR GENERIC PSY | | | | | | CONV DEPT [address] | | | | 12/25/ | | [address], | | | | 1993 | | [place] [address] | | | | | | [phone] | | | +--------+ + + + [...] [address] | | | | | | [place] [address] | | | | | | [phone] | | | | | | | | +--------+ + + + + | 08/28/ | Office | Cardiology | Dora De La Torre | | | 2019 | Visit | | [address] | | | | | | [address] | | | | | | [place] [address] | | | | | | [phone] | | | | | | | | +--------+ + + + + documented as of this encounter Visit Diagnoses Not on filedocumented in this encounter"
--- OUTSIDE RECORDS SUMMARY | ~2020-05-25 | XMS | Encounter Summary ---
Demographics + + + | Address | [address] | | | [place] [address] | + + + | Home Phone [...] [place], [place] | | | | | [address] | | + + + + + Care Team Providers + +------+ + | Care Manager Strategic Marketing Name | Role | Phone | + +------+ + PCP | Unavailable | + +------+ + Encounter Details +--------+ + + + + | Date | Type | Department | Care Team | Description | +--------+ + + + + | 04/16/ | [facility] | [facility] | Deon Gonzales | | | 2004 | Encounter | MED CTR SLEEP | MD Laure[address] | | | | | [place] [address] | [facility] | | | | | [place], [place] | [place] [address] | | | | | [address] | [phone] | | | | | [phone] | | | +--------+ + + + [...] | | | | | [place] [address] | | | | | | [phone] | | | | | | | | +--------+ + + + + | 08/28/ | Office | Cardiology | Dora De La Torre | | | 2019 | Visit | | [address] | | | | | | [address] | | | | | | [place] [address] | | | | | | [phone] | | | | | | | | +--------+ + + + + documented as of this encounter Visit Diagnoses Not on filedocumented in this encounter"
--- OUTSIDE RECORDS SUMMARY | ~2020-05-25 | XMS | Encounter Summary ---
Demographics + + + | Address | [address] | | | [place] [address] | + + + | Home Phone [...] [place], [place] | | | | | [address] | | + + + + + Care Team Providers + +------+ + | Care Enrollment Nurse Name | Role | Phone | + +------+ + PCP | Unavailable | + +------+ + Encounter Details +--------+ + + + + | Date | Type | Department | Care Team | Description | +--------+ + + + + | 02/02/ | Hospital | [facility] | | | | 1997 | Encounter | MED CTR EMERGENCY | | | | | | [address] | | | | | | [place] | | | | | | [address] | | | | | | [phone] | | | +--------+ + + + [...] | | | | | [place] [address] | | | | | | [phone] | | | | | | | | +--------+ + + + + | 08/28/ | Office | Cardiology | Dora De La Torre | | | 2020 | Visit | | [address] | | | | | | [address] | | | | | | [place] [address] | | | | | | [phone] | | | | | | | | +--------+ + + + + documented as of this encounter Visit Diagnoses Not on filedocumented in this encounter"
--- OUTSIDE RECORDS SUMMARY | ~2020-05-25 | XMS | Encounter Summary ---
Demographics + + + | Address | [address] | | | [place] [address] | + + + | Home Phone [...] [place], [place] | | | | | [address] | | + + + + + Care Team Providers + +------+ + | Care Clerk Funeral Detail Name | Role | Phone | + +------+ + PCP | Unavailable | + +------+ + Encounter Details +--------+ + + + + | Date | Type | Department | Care Team | Description | +--------+ + + + + | 01/26/ | Hospital | [facility] | [place], | | | 2011 | Encounter | MED CTR XRAY [address] | MD [address] | | | | | [place] | [place] | | | | | [place] [address] | [address] | | | | | [phone] | | | +--------+ + + + [...] [place]ANTU | | | | | | [place] [address] | | | | | | [phone] | | | | | | | | +--------+ + + + + | 08/28/ | Office | Cardiology | Dora De La Torre | | | 2019 | Visit | | [address] | | | | | | [place] | | | | | | [place] [address] | | | | | | [phone] | | | | | | | [...] Performed At | + + + | [facility] Diagnostic Imaging Department | [place] | | [address] [facility] [place] | [facility] | | BILATERAL KNEES, THREE VIEWS: [...] Transcribed | | | Date/Time: 01/27/2012 17:18 Social Services Coordinator: | | | <Electronically Signed by Willie Perry MD> 01/27/12 6484 | | + + + + + | Procedure Note | + + | Juan, Rad Conversion - 11/30/2013 5:03 PM [facility] | | Diagnostic Imaging Department [address] [place] [address] | | BILATERAL KNEES, THREE VIEWS: 01/27/2012 [...] 17:12 | |Transcribed Date/Time: 01/27/2012 17:18 | |Social Services Coordinator: | |<Electronically Signed by Willie Perry MD> 01/27/122253 | + + + +---------+ + + | Performing | Address | City/State/Zipcode | Phone Number | | Organization | | | | + +---------+ + + | [place] | | | | | [facility] | | | | + +---------+ + + documented in this encounter Visit Diagnoses Not on filedocumented in this encounter"
--- OUTSIDE RECORDS SUMMARY | ~2020-05-25 | XMS | Encounter Summary ---
Demographics + + + | Address | [address] | | | [place] [address] | + + + | Home Phone [...] [place] | | | | | [address] | | + + + + + Care Team Providers + +------+ + | Care Sexual Abuse Counsellor Name | Role | Phone | [...] | | | | [address] [facility], | address | | | | | [address] [place] | | | | | | [place] [address] | | | | | | [phone] | | | +--------+ + + + [...] | | | | | [place] [address] | | | | | | [phone] | | | | | | | | +--------+ + + + + | 08/28/ | Office | Cardiology | Dora De La Torre | | | 2019 | Visit | | [address] | | | | | | [address] [address] | | | | | | [place] [address] | | | | | | [phone] | | | | | | | | +--------+ + + + + documented as of this encounter Visit Diagnoses Not on filedocumented in this encounter"
--- OUTSIDE RECORDS SUMMARY | ~2020-05-25 | XMS | Encounter Summary ---
Demographics + + + | Address | [address] | | | [place] [address] | + + + | Home Phone [...] [place] | | | | | [address] | | + + + + + Care Team Providers + +------+ + | Care Curing Finisher Name | Role | Phone | [...] + | 06/20/ | Telephone | [facility] | Frandy Teresa, | Other (surgery | | 2013 | | NEUROSURGERY [address] | DO [address] | reminder ) | | | | [address] | [address] [place], [place] | | | | | [place], [place] | [id number] | | | | | [address] | | | | | | [phone] | | | +--------+ + + + [...] [place]U | | | | | | [place] [address] | | | | | | [phone] | | | | | | | | +--------+ + + + + | 08/28/ | Office | Cardiology | Dora De La Torre | | | 2019 | Visit | | [address] | | | | | | [place] | | | | | | [place] [address] | | | | | | [phone] | | | | | | | | +--------+ + + + + documented as of this encounter Visit Diagnoses Not on filedocumented in this encounter"
--- OUTSIDE RECORDS SUMMARY | ~2020-05-25 | XMS | Encounter Summary ---
Demographics + + + | Address | [address] | | | [place] [address] | + + + | Home Phone [...] [place] | | | | | [address] | | + + + + + Care Team Providers + +------+ + | Care Insurance Follow Up Representative Name | Role | Phone | [...] | | | | | pain, | [place], [place] | | | | | | bilateral | [address] | | | | | | Degenerative | Phone: | | | | | | disc | [phone] | | | | | | disease, | Fax: | | | | | | lumbar | [phone] | | | | | | Spinal [...] RADICULOPATHY | | | | [address] | [address] [place], [place] | (Primary Dx); Knee | | | | [place], [place] | [address] | pain, bilateral; | | | | [address] | | DEGENERATIVE DISC | | | | [phone] | | DISEASE, LUMBAR | | | [...] | | | | | [place] [address] | | | | | | [phone] | | | | | | | | +--------+ + + + + | 08/28/ | Office | Cardiology | Dora De La Torre | | | 2020 | Visit | | [address] | | | | | | [address] | | | | | | [place] [address] | | | | | | [phone] | | | | | | | [...]
--- OUTSIDE RECORDS SUMMARY | ~2020-05-25 | XMS | Encounter Summary ---
Demographics + + + | Address | [address] | | | [place] [address] | + + + | Home Phone [...] [place] | | | | | [address] | | + + + + + Care Team Providers + +------+ + | Care Creative Writing Teacher Name | Role | Phone | [...] + | 07/29/ | Telephone | [facility] | Frandy Cagle, | Other (multiple | | 2013 | | NEUROSURGERY [address] | DO [address] | questions) | | | | [facility] | [address] [place], [place] | | | | | [place], [place] | [id number] | | | | | [address] | | | | | | [phone] | | | +--------+ + + + [...] and I might get a repeat MRI. Haworth ordered. Thanks. ddendum Note - Shayne Aragon [...] - 07/29/2014 11:19 AM [facility]all [facility] fur ther information. She [...] refill be mailed to her for her Haworth 10/325mg which was given to her on [...] | | | | | [place] [address] | | | | | | [phone] | | | | | | | | +--------+ + + + + | 08/28/ | Office | Cardiology | Dora De La Torre | | | 2019 | Visit | | [address] | | | | | | [place] | | | | | | [place] [address] | | | | | | [phone] | | | | | | | | +--------+ + + + + documented as of this encounter Visit Diagnoses Not on filedocumented in this encounter"
--- OUTSIDE RECORDS SUMMARY | ~2020-05-25 | XMS | Encounter Summary ---
Demographics + + + | Address | [address] | | | [place] [address] | + + + | Home Phone [...] [place], [place] | | | | | [address] | | + + + + + Care Team Providers + +------+ + | Care Intrusion Analyst Name | Role | Phone | + +------+ + PCP | Unavailable | + +------+ + Encounter Details +--------+ + + + + | Date | Type | Department | Care Team | Description | +--------+ + + + + | 07/23/ | Hospital | [facility] | | | | 1992 - | Encounter | MED CTR GENERIC PSY | | | | | | CONV DEPT [address] | | | | 07/28/ | | [place], | | | | 1992 | | [place] [address] | | | | | | [phone] | | | +--------+ + + + [...] [place]ANTU | | | | | | [place] [address] | | | | | | [phone] | | | | | | | | +--------+ + + + + | 08/28/ | Office | Cardiology | Dora De La Torre | | | 2019 | Visit | | [address] | | | | | | [place] | | | | | | [place] [address] | | | | | | [phone] | | | | | | | | +--------+ + + + + documented as of this encounter Visit Diagnoses Not on filedocumented in this encounter"
--- OUTSIDE RECORDS SUMMARY | ~2020-05-25 | XMS | Encounter Summary ---
Demographics + + + | Address | [address] | | | [place] [address] | + + + | Home Phone [...] [place] | | | | | [address] | | + + + + + Care Team Providers + +------+ + | Care Waste Transportation Technician Name | Role | Phone | + +------+ + | Adriano Patrick MD | PCP | | + +------+ + Encounter Details +--------+ + + + + | Date | Type | Department | Care Team | Description | +--------+ + + + + | 05/16/ | Orders Only | [facility] | Provider, | | | 2018 | | SYSTEM GENERIC OP | MD [address] | | | | | CONVERSION [address] | [address] | | | | | [address] [place], [place] | [place] [address] | | | | | [address] | | | | | | [phone] | | | +--------+ + + + [...] | | | | | [place] [address] | | | | | | [phone] | | | | | | | | +--------+ + + + + | 08/28/ | Office | Cardiology | Dora De La Torre | | | 2020 | Visit | | [address] | | | | | | [place] | | | | | | [place] [address] | | | | | | [phone] | | | | | | | | +--------+ + + + + documented as of this encounter Visit Diagnoses Not on filedocumented in this encounter"
--- OUTSIDE RECORDS SUMMARY | ~2020-05-25 | XMS | Encounter Summary ---
Demographics + + + | Address | [address] | | | [place] [address] | + + + | Home Phone [...] [place] | | | | | [address] | | + + + + + Care Team Providers + +------+ + | Care Loft Worker Head Name | Role | Phone | [...] + | 05/02/ | Telephone | [facility] | Frandy Teresa, | Other | | 2013 | | NEUROSURGERY [address] | DO [address] | | | | | [address] | [address] [place], [place] | | | | | [place], [place] | [phone] | | | | | [address] | | | | | | [phone] | | | +--------+ + + + [...] seat riser sugar mahmood. Thanks. elephone Shayne Gisbon Cert MA - 05/02/2014 11:57 AM PDTPatricthais [...] | | | | | [place] [address] | | | | | | [phone] | | | | | | | | +--------+ + + + + | 08/28/ | Office | Cardiology | Dora De La Torre | | | 2019 | Visit | | [address] | | | | | | [address] | | | | | | [place] [address] | | | | | | [phone] | | | | | | | | +--------+ + + + + documented as of this encounter Visit Diagnoses Not on filedocumented in this encounter"
--- OUTSIDE RECORDS SUMMARY | ~2020-05-25 | XMS | Encounter Summary ---
Demographics + + + | Address | [address] | | | [place] [address] | + + + | Home Phone [...] [place] | | | | | [address] | | + + + + + Care Team Providers + +------+ + | Care Production Trainer Name | Role | Phone | [...] + + | 05/23/ | Telephone | [facility] | Desiree Peterson DO | Chest Pain | | 2020 | | CARDIOLOGY [place] | [address] | | | | | [address] | [place], [place] | | | | | [place], [place] | [address] | | | | | [address] | | | | | | [phone] | | | +--------+ + + + [...] Protocols, 4th Edition by Lincoln Cullen MD [facility]. Chest Pain protocol was used. documented in this encounter Plan of Treatment +--------+ + + + + | Date | Type | Specialty | Care Team | Description | +--------+ + + + + | 05/29/ | Procedure | Cardiology | Britt Dora | | 2019 | visit | | [address] | | | | | | [address] [address] | | | | | | [place] [address] | | | | | | [phone] | | | | | | | | +--------+ + + + + | 08/28/ | Office | Cardiology | Dora De La Torre | | | 2019 | Visit | | [address] | | | | | | [address] [address] | | | | | | [place] [address] | | | | | | [phone] | | | | | | | | +--------+ + + + + documented as of this encounter Visit Diagnoses Not on filedocumented in this encounter
--- OUTSIDE RECORDS SUMMARY | ~2020-05-25 | XMS | Encounter Summary ---
Demographics + + + | Address | [address] | | | [place] [address] | + + + | Home Phone [...] [place], [place] | | | | | [address] | | + + + + + Care Team Providers + +------+ + | Care Pilot Plant Operator Helper Name | Role | Phone | + +------+ + PCP | Unavailable | + +------+ + Encounter Details +--------+ + + + + | Date | Type | Department | Care Team | Description | +--------+ + + + + | 02/24/ | Hospital | [facility] | | | | 1997 - | Encounter | MED CTR GENERIC PSY | | | | | | CONV DEPT [address] | | | | 02/26/ | | [place], | | | | 1997 | | [place] [address] | | | | | | [phone] | | | +--------+ + + + [...] [address]ANTU | | | | | | [place] [address] | | | | | | [phone] | | | | | | | | +--------+ + + + + | 08/28/ | Office | Cardiology | Dora De La Torre | | | 2019 | Visit | | [address] | | | | | | [address] | | | | | | [place] [address] | | | | | | [phone] | | | | | | | | +--------+ + + + + documented as of this encounter Visit Diagnoses Not on filedocumented in this encounter"
--- OUTSIDE RECORDS SUMMARY | ~2020-05-25 | XMS | Encounter Summary ---
Demographics + + + | Address | [address] | | | [place] [address] | + + + | Home Phone [...] [place] | | | | | [address] | | + + + + + Care Team Providers + +------+ + | Care Outer Diameter Grinder Name | Role | Phone | [...] + | 06/26/ | Telephone | [facility] | Frandy Teresa, | Other | | 2013 | | NEUROSURGERY [address] | DO [address] | | | | | [address] | [address] [place], [place] | | | | | [place], [place] | [id number] | | | | | [address] | | | | | | [phone] | | | +--------+ + + + [...] [place] | | | | | | [place] [address] | | | | | | [phone] | | | | | | | | +--------+ + + + + | 08/28/ | Office | Cardiology | Dora De La Torre | | | 2019 | Visit | | [address] | | | | | | [address] | | | | | | [place] [address] | | | | | | [phone] | | | | | | | | +--------+ + + + + documented as of this encounter Visit Diagnoses Not on filedocumented in this encounter"
--- OUTSIDE RECORDS SUMMARY | ~2020-05-25 | XMS | Encounter Summary ---
Demographics + + + | Address | [address] | | | [place] [address] | + + + | Home Phone [...] [place] | | | | | [address] | | + + + + + Care Team Providers + +------+ + | Care Bisque Tile Burner Name | Role | Phone | + [...] + + | 09/10/ | Documentati | [facility] | Katharine Moncada, | Other (urgent | | 2019 | on | CARDIOLOGY [place] | Technologist | report) | | | | [address] | | | | | | [place] | | | | | | [address] | | | | | | [phone] | | | +--------+ + + + [...] | | | | | [place] [address] | | | | | | [phone] | | | | | | | | +--------+ + + + + | 08/28/ | Office | Cardiology | Dora De La Torre | | | 2020 | Visit | | [address] | | | | | | [address] | | | | | | [place] [address] | | | | | | [phone] | | | | | | | | +--------+ + + + + documented as of this encounter Visit Diagnoses Not on filedocumented in this encounter"
--- OUTSIDE RECORDS SUMMARY | ~2020-05-25 | XMS | Encounter Summary ---
Demographics + + + | Address | [address] | | | [place] [address] | + + + | Home Phone [...] [place] | | | | | [address] | | + + + + + [...] | 08/05/ | Telephone | [facility] | Frandy Teresa, | Other | | 2013 | | NEUROSURGERY [address] | DO [address] | | | | | [address] | [address] [place], [place] | | | | | [place], [place] | [address] | | | | | [address] | | | | | | [phone] | | | +--------+ + + + [...] [place] | | | | | | [place] [address] | | | | | | [phone] | | | | | | | | +--------+ + + + + | 08/28/ | Office | Cardiology | Dora De La Torre | | | 2019 | Visit | | [address] | | | | | | [address] | | | | | | [place] [address] | | | | | | [phone] | | | | | | | | +--------+ + + + + documented as of this encounter Visit Diagnoses Not on filedocumented in this encounter"
--- OUTSIDE RECORDS SUMMARY | ~2020-05-25 | XMS | Encounter Summary ---
Demographics + + + | Address | [address] | | | [place] [address] | + + + | Home Phone [...] [place] | | | | | [address] | | + + + + + Care Team Providers + +------+ + | Care Heel Edge Inker Machine Name | Role | Phone | [...] + + | 05/19/ | Telephone | [facility] | Britt Dora | Other (Cancel | | 2020 | | CARDIOLOGY [place] | [address] | appointment) | | | | [address] | [address] | | | | | [address] | [place] [address] | | | | | [place], [place] | [phone] | | | | | [address] | | | | | | [phone] | | | +--------+ + + + [...] - 05/19/2020 10:42 AM [facility] follow up visit with Dora [...] [address]ANTU | | | | | | [place] [address] | | | | | | [phone] | | | | | | | | +--------+ + + + + | 08/28/ | Office | Cardiology | StefanielarryDora | | 2019 | Visit | | [address] | | | | | | [address] | | | | | | [place] [address] | | | | | | [phone] | | | | | | | | +--------+ + + + + documented as of this encounter Visit Diagnoses Not on filedocumented in this encounter"
--- OUTSIDE RECORDS SUMMARY | ~2020-05-25 | XMS | Encounter Summary ---
Demographics + + + | Address | [address] | | | [place] [address] | + + + | Home Phone [...] [place] | | | | | [address] | | + + + + + Care Team Providers + +------+ + | Care Drama Teacher Name | Role | Phone | [...] + + | 07/06/ | Emergency | [facility] | Yunior Sherman, | Chest pain, | | 2014 | | MED CTR EMERGENCY | MD [address] | unspecified chest | | | | CENTER [address] | [place], [place] | pain type (Primary | | | | [place], [place] | [address] | Dx) | | | | [address] | | | | | | [phone] | | | +--------+ + + + [...] sent through Care Everywhere.CHEST PAIN, NON CARDIAC (PERSIAN)documented in this encounter Medications at Time of [...] 0 | | | | (VITAMIN D-3) [address] | mouth Once a week. | | [...] | | (FORMERLY [facility]) | | | | | | + [...] + + + +---------+ + + | Corona-3 Fatty | Take 1,000 mg by | [...] N/A; Surgeon: Frandy castellanos DO; Location: [facility] MAIN OR Cardiac catherization CURRENT MEDICATIONS [...] mg by mouth Daily. CHOLECALCIFEROL (VITAMIN D-3) 77443 UNITS CAPS Take 50,000 Units by mouth [...] pain. She was recently discharged from a [facility] facility. She's had more than 24 [...] [address] | | | | | | [place] [address] | | | | | | [phone] | | | | | | | | +--------+ + + + + | 08/28/ | Office | Cardiology | Dora De La Torre | | | 2019 | Visit | | [address] | | | | | | [address] | | | | | | [place] [address] | | | | | | [phone] | | | | | | | [...] [address] | [place] | [phone] | | [facility] | | [address] | | | - LABORATORY | | [...] + | [facility] | [address] | [place] | [phone] | | [facility] | | [address] | | | - LABORATORY | | [...] | | | | | | [employer] | | | | | [...] [address] | [place] | [phone] | | [facility] | | [address] | | | - LABORATORY | | [...] mL/min/1.73m2 | [facility] | | | [place] | RATE,ESTIMATED | | MEDICAL | | | | mL/min/1.14m4Yext than | | CENTER - | | [...] [address] | [place] | [phone] | | [facility] | | [address] | | | - LABORATORY | | [...] + | [facility] | [address] | [place] | [phone] | | [facility] | | [address] | | | - LABORATORY | | [...] | | | | MD MANSI, LACEY ([id number]) | | | | | | on [...]
--- OUTSIDE RECORDS SUMMARY | ~2020-05-25 | XMS | Encounter Summary ---
Demographics + + + | Address | [address] | | | [place] [address] | + + + | Home Phone [...] [place], [place] | | | | | [address] | | + + + + + Care Team Providers + +------+ + | Care Ballast Cleaning Machine Operator Name | Role | Phone | + +------+ + PCP | Unavailable | + +------+ + Encounter Details +--------+ + + + + | Date | Type | Department | Care Team | Description | +--------+ + + + + | 05/23/ | Hospital | [facility] | | | | 1991 | Encounter | MED CTR XRAY [address] | | | | | | [address] [address] | | | | | | [place] [address] | | | | | | [phone] | | | +--------+ + + + [...] | | | | | [place] [address] | | | | | | [phone] | | | | | | | | +--------+ + + + + | 08/28/ | Office | Cardiology | Dora De La Torre | | | 2019 | Visit | | [address] | | | | | | [address] | | | | | | [place] [address] | | | | | | [phone] | | | | | | | | +--------+ + + + + documented as of this encounter Visit Diagnoses Not on filedocumented in this encounter"
--- OUTSIDE RECORDS SUMMARY | ~2020-05-25 | XMS | Encounter Summary ---
Demographics + + + | Address | [address] | | | [place] [address] | + + + | Home Phone [...] [place], [place] | | | | | [address] | | + + + + + Care Team Providers + +------+ + | Care Lye Peel Operator Name | Role | Phone | + +------+ + PCP | Unavailable | + +------+ + Encounter Details +--------+ + + + + | Date | Type | Department | Care Team | Description | +--------+ + + + + | 02/24/ | Hospital | [facility] | | | | 1997 | Encounter | MED CTR EMERGENCY | | | | | | [address] | | | | | | [place] | | | | | | [address] | | | | | | [phone] | | | +--------+ + + + [...] | | | | | [place] [address] | | | | | | [phone] | | | | | | | | +--------+ + + + + | 08/28/ | Office | Cardiology | Dora De La Torre | | | 2020 | Visit | | [address] | | | | | | [address] | | | | | | [place] [address] | | | | | | [phone] | | | | | | | | +--------+ + + + + documented as of this encounter Visit Diagnoses Not on filedocumented in this encounter"
--- OUTSIDE RECORDS SUMMARY | ~2020-05-25 | XMS | Encounter Summary ---
Demographics + + + | Address | [address] | | | [place] [address] | + + + | Home Phone [...] [place], [place] | | | | | [address] | | + + + + + Care Team Providers + +------+ + | Care Managed Care Manager Name | Role | Phone | + +------+ + PCP | Unavailable | + +------+ + Encounter Details +--------+ + + + + | Date | Type | Department | Care Team | Description | +--------+ + + + + | 04/01/ | Hospital | [facility] | | | | 1998 | Encounter | MED CTR XRAY [address] | | | | | | [address] | | | | | | [place] [address] | | | | | | [phone] | | | +--------+ + + + [...] | | | | | [place] [address] | | | | | | [phone] | | | | | | | | +--------+ + + + + | 08/28/ | Office | Cardiology | Dora De La Torre | | | 2019 | Visit | | [address] | | | | | | [address] | | | | | | [place] [address] | | | | | | [phone] | | | | | | | | +--------+ + + + + documented as of this encounter Visit Diagnoses Not on filedocumented in this encounter"
--- OUTSIDE RECORDS SUMMARY | ~2020-05-25 | XMS | Encounter Summary ---
Demographics + + + | Address | [address] | | | [place] [address] | + + + | Home Phone [...] [place] | | | | | [phone] | | + + + + + Care Team Providers + +------+ + | Care Director Of Public Health Name | Role | Phone | [...] + + | 09/10/ | Documentati | [facility] | Katharine Moncada, | Other (urgent | | 2019 | on | CARDIOLOGY [place] | Technologist | report) | | | | [address] | | | | | | [place] | | | | | | [address] | | | | | | [phone] | | | +--------+ + + + [...] | | | | | [place] [address] | | | | | | [phone] | | | | | | | | +--------+ + + + + | 08/28/ | Office | Cardiology | Dora De La Torre | | | 2020 | Visit | | [address] | | | | | | [address] | | | | | | [place] [address] | | | | | | [phone] | | | | | | | | +--------+ + + + + documented as of this encounter Visit Diagnoses Not on filedocumented in this encounter"
--- OUTSIDE RECORDS SUMMARY | ~2020-05-25 | XMS | Encounter Summary ---
Demographics + + + | Address | [address] [facility] [address] | | | [place] [address] | + + + | Home Phone [...] Author + + + | Author | [facility] | + + + | Organization | [facility] | + + + | Address | Unknown | + + + | Phone | Unavailable | + + + Support + + + + + | Name | Relationship | Address | Phone | + + + + + | Kelsy Bautista | ECON | [address] | | | | | [place] | | | | | [address] | | + + + + + Care Team Providers + +------+ + | Care Banner Painter Name | Role | Phone | [...] [id number] | | | | | | [place], [place] | | | | | | [address] | | | | | | [phone] | | | +--------+ + + + [...] | + + + + + | [facility] | [address] | [place] [address] | | | PATHOLOGY | [address] [...] Re | | | | | | [phone] | | | | + + + + + + + + | Specimen | + + | | + + + + + + + | Performing | Address | City/State/Zipcode | Phone Number | | Organization | | | | + + + + + | [facility] | [address] | [place] [address] | | | PATHOLOGY | [address] [...] Re | | | | | | [phone] | | | | + + + + + + + + | Specimen | + + | | + + + + + + + | Performing | Address | City/State/Zipcode | Phone Number | | Organization | | | | + + + + + | [facility] | [address] | [place] [address] | | | PATHOLOGY | [address] [...] Re | | | | | | [id number] | | | | + + + + + + + + | Specimen | + + | | + + + + + + + | Performing | Address | City/State/Zipcode | Phone Number | | Organization | | | | + + + + + | [facility] | [address] | [place] [address] | | | PATHOLOGY | [address] [...] Re | | | | | | [phone] | | | | + + + + + + + + | Specimen | + + | | + + + + + + + | Performing | Address | City/State/Zipcode | Phone Number | | Organization | | | | + + + + + | [facility] | [address] | [place] [address] | | | PATHOLOGY | [address] | | | + + + + + documented in this encounter Visit Diagnoses Not on filedocumented in this encounter"
--- OUTSIDE RECORDS SUMMARY | ~2020-05-25 | XMS | Encounter Summary ---
Demographics + + + | Address | [address] | | | [place] [address] | + + + | Home Phone [...] [place] | | | | | [address] | | + + + + + Care Team Providers + +------+ + | Care Flavor Extractor Name | Role | Phone | + [...] [place] | | | | | | [address] | | | | | | [phone] | | | +--------+ + + + [...] | | | | | [place] [address] | | | | | | [phone] | | | | | | | | +--------+ + + + + | 08/28/ | Office | Cardiology | Dora De La Torre | | | 2020 | Visit | | [address] | | | | | | [address] | | | | | | [place] [address] | | | | | | [phone] | | | | | | | | +--------+ + + + + documented as of this encounter Visit Diagnoses Not on filedocumented in this encounter"
--- OUTSIDE RECORDS SUMMARY | ~2020-05-25 | XMS | Encounter Summary ---
Demographics + + + | Address | [address] | | | [place] [address] | + + + | Home Phone [...] [place] | | | | | [address] | | + + + + + Care Team Providers + +------+ + | Care Corporate Account Executive Name | Role | Phone [...] + + | 11/25/ | Telephone | [facility] | Frandy Teresa, | Medication Refill | | 2014 | | NEUROSURGERY [address] | DO [address] | Assistance | | | | [facility] | [address] [place], [place] | | | | | [place], [place] | [id number] | | | | | [address] | | | | | | [phone] | | | +--------+ + + + [...] get a refill of her pain medication Niles 10-325 mg. I l et her know we are beyond the 90 days after her surgery and refills need to come from her [facility]. She requests us to update her [...] [address] | | | | | | [place] [address] | | | | | | [phone] | | | | | | | | +--------+ + + + + | 08/28/ | Office | Cardiology | Dora De La Torre | | | 2019 | Visit | | [address] | | | | | | [address] | | | | | | [place] [address] | | | | | | [phone] | | | | | | | | +--------+ + + + + documented as of this encounter Visit Diagnoses Not on filedocumented in this encounter"
--- OUTSIDE RECORDS SUMMARY | ~2020-05-25 | XMS | Encounter Summary ---
Demographics + + + | Address | [address] | | | [place] [address] | + + + | Home Phone [...] [place] | | | | | [address] | | + + + + + Care Team Providers + +------+ + | Care Casino Host Name | Role | Phone | [...] + + | 02/06/ | Telephone | [facility] | Roxannmiguel ángelDora | Patient Concerns | | 2020 | | CARDIOLOGY [place] | [address] | | | | | [address] | [address] | | | | | [address] | [place] [address] | | | | | [place] | [phone] | | | | | [address] | | | | | | [phone] | | | +--------+ + + + [...] [address] | | | | | | [place] [address] | | | | | | [phone] | | | | | | | | +--------+ + + + + | 08/28/ | Office | Cardiology | Dora De La Torre | | | 2019 | Visit | | [address] | | | | | | [address] | | | | | | [place] [address] | | | | | | [phone] | | | | | | | | +--------+ + + + + documented as of this encounter Visit Diagnoses Not on filedocumented in this encounter"
--- OUTSIDE RECORDS SUMMARY | ~2020-05-25 | XMS | Encounter Summary ---
Demographics + + + | Address | [address] | | | [place] [address] | + + + | Home Phone [...] [place] | | | | | [address] | | + + + + + Care Team Providers + +------+ + | Care Lapping Machine Operator Name | Role | [...] | | Required | | branch | FLUX PLANT OPERATOR [address] | [address] | | | | | block | [address] | [place] | | | | | Paroxysmal | [address] | [address] | | | | | A-fib ([facility]) | [place], [place] | [address] | | | | | | [address] | [place], [place] | | | | | Schizoaffect | Phone: | [address] Phone: | | | | | chris | [phone] | [phone] | | | | | disorder, | Fax: | Fax: | | | | | bipolar type | [phone] | [phone] | | | | | (HCC) | [...] + + | 04/24/ | Office | [facility] | Dora De La Torre | Left bundle branch | | 2020 | Visit | CARDIOLOGY [place] | [address] | block (Primary Dx); | | | | [address] | [address] | Paroxysmal A-fib | | | | [address] | [place] [address] | ([facility]); Mild | | | | [place], [place] | [phone] | hyperlipidemia; | | | | [address] | | Benign essential | | | | [phone] | | HTN; Poorly | | | [...] have referred you to Dr. Osuna at [facility] , call [phone] for an appo intment next week as [...] patient of , who is her primary zinc plater, and last seen by her on 08/2020. [...] also resol shelly with weight loss Her [id number] VASC score is 4 (stroke, HTN, gender) [...] She has previously seen Dr. Garland in [place], and different sleep provider in [facility] when lived over there. She previously [...] After her syncopal episode she had notified [facility] cardiology, and Dr. Marquez, who was on-call [...] PCP, or get a referral to an transport tank technician to get her blood sugars better controlled, [...] thirst or hunger. Psychiatric/Behavioral: Bipolar/Schizophrenia. Tx'd by [employer] Vaccines: Current on flu vaccine: 2019 Current on pneumonia vaccine:PPSV 23 05/29/2013 Habits/Social : Denies history of smoking. Denies EtOH use. Denies recreational or illici t drug use. Exercises sporadically. Lives in [place] . Outpatient Medications Prior to Visit Medication [...] chest [facility], [facility] Resting EKG normal sinus rhythm, [...] nonspecific ST-T wave abnormality rate 82 bpm, ID 176 ms, QRS 80 ms, QTC 446 ms tracing personally reviewed by me EK12/17/2019: Sinus tachycardia, nonspecific ST wave abnormalities, rate 105 bpm, ID 196 ms, QRS 74 ms, QTC 430 ms, tracing personally reviewed by me, and compared to EKG performed in February 2019, rate is less well-controlled EK01/10/2020 (metoprolol XL 50 mg twice daily. Normal sinus rhythm, new left bundle bran ch block Rate 74 bpm, ID 204 ms, QRS 138 ms, QTC 488 [...] bundle branch block. Ra te 105 bpm, ID 184 ms, QRS 144 ms, QTC 489 ms, tracing personally reviewed by me, and compar ed to EKG performed in December , rate is less well-controlled LABS Labs: 12/26/2018: ( [facility])CMP: Sodium 139, potassium 4.2, chloride 99, BUN 10, creatinine 0. 7, BNP 28. CBC: WBC 7.8, hemoglobin 14.3, hematocrit 42.7, platelets 214 Labs: 09/28/2019:( [facility]) CBC: WBC 7.8, hemoglobin 14.9, hematocrit 43.8, platelets 221. C MP: Sodium 132, potassium 4.2, chloride 95, AST 76, ALT 76, alk phos 134 Labs: 10/11/2019:( [facility]) CBC: WBC 6.7, RBC 4.97, hemoglobin 15.2, hematocrit 44.7, platel ets 200. CMP: Glucose 385, BUN 7, creatinine 0.62, GFR 97, sodium 131, potassium 4.1, chlor kelby 95, albumin 4.3, total bilirubin 0.6, AST 75, ALT 73, alk phos 144. Thyroid: TSH 4.27 Labs: 10/12/2020:( [facility]) CBC: WBC 7, RBC 4.93, hemoglobin 14.7, hematocrit 44.1, platele ts 186 normal UA CMP: Glucose 381, BUN 6, creatinine 0.63, GFR 95, sodium 133, potassium 3.8 , chloride 97, albumin 4.3, total bili 0.6, AST 62, ALT 75, alk phos 145 thyroid: TSH 3.07 Labs: 10/20/2019:( [facility]) CBC: WBC 7.1, RBC 4.93, hemoglobin 15.1, hematocrit 45.2, platel ets 204. CMP: Glucose 540, BUN 8, creatinine 0.81, GFR 71, sodium 131, potassium 4.1, chlor kelby 95, albumin 4.2, total bili 0.5, AST 54, ALT 63, alk phos 123, negative screen for all d rugs except tricyclics. Thyroid: TSH 3.39. Labs: 04/20/2020: ([facility]). CMP: Sodium 130, potassium 4.1, [...] admission and overnight teleme try stay at [facility] for syncopal episode with extremely elevated glucose levels of 404, with hemoglobin A1c of 15.2. She has problems as detailed below. As discussed in HPI, she did not have any arrhythmias [facility], and her EKG performed the ER showed [...] report. I have referred her to the [facility] sleep disorders clinic for further [...] notes for continuity of care purp [facility]on [facility]/25/2020 Laurie vivar in this encounter Plan of Treatment +--------+ + + + + | Date | Type | Specialty | Care Team | Description | +--------+ + + + + | 05/29/ | Procedure | Cardiology | Dora eD La Torre | | 2019 | visit | | [address] | | | | | | [address] | | | | | | [place] [address] | | | | | | [phone] | | | | | | | | +--------+ + + + + | 08/28/ | Office | Cardiology | Dora De La Torre | | 2019 | Visit | | [address] | | | | | | [address] | | | | | | [place] [address] | | | | | | [phone] | | | | | | | [...] | | | | | | A-fib ([facility]) | | | | | | Schizoaffective | | | | | | disorder, bipolar | | | | | | type ([facility]) Rapid | | | | [...]
--- OUTSIDE RECORDS SUMMARY | ~2020-05-25 | XMS | Encounter Summary ---
Demographics + + + | Address | [address] | | | [place] [address] | + + + | Home Phone [...] [place], [place] | | | | | [address] | | + + + + + Care Team Providers + +------+ + | Care Geothermal Hvac Technician Name | Role | Phone | + +------+ + PCP | Unavailable | + +------+ + Encounter Details +--------+ + + + + | Date | Type | Department | Care Team | Description | +--------+ + + + + | 02/02/ | Hospital | [facility] | | | | 1997 - | Encounter | MED CTR GENERIC PSY | | | | | | CONV DEPT [address] | | | | 02/05/ | | [address], | | | | 1997 | | [place] [address] | | | | | | [phone] | | | +--------+ + + + [...] [address] | | | | | | [place] [address] | | | | | | [phone] | | | | | | | | +--------+ + + + + | 08/28/ | Office | Cardiology | Dora De La Torre | | | 2019 | Visit | | [address] | | | | | | [address] | | | | | | [place] [address] | | | | | | [phone] | | | | | | | | +--------+ + + + + documented as of this encounter Visit Diagnoses Not on filedocumented in this encounter"
--- OUTSIDE RECORDS SUMMARY | ~2020-05-25 | XMS | Encounter Summary ---
Demographics + + + | Address | [address] | | | [place] [address] | + + + | Home Phone [...] [place] | | | | | [address] | | + + + + + Care Team Providers + +------+ + | Care Steam Fitter Name | Role | Phone | [...] Clinic | | | | | | [facility] | | | | | | [place], [place] | | | | | | [address] | | | | | | [phone] | | | +--------+ + + + [...] as of this encounter Progress Notes Interface, Song And Dance Performer In - 12/11/2006 5:03 AM [facility] DATE: 07/03/97 INFECTIOUS DISEASE [...]
--- OUTSIDE RECORDS SUMMARY | ~2020-05-25 | XMS | Encounter Summary ---
Demographics + + + | Address | [address] | | | [place] [address] | + + + | Home Phone [...] [place] | | | | | [address] | | + + + + + Care Team Providers + +------+ + | Care Vice President Tax Name | Role | Phone | + [...] + + | 10/23/ | Telephone | [facility] | Ashley Chávez | Other (Patient | | 2019 | | CARDIOLOGY [place] | Pollo, Shelf Filler | called about | | | | [address] | | metoprolol. ) | | | | [place], [place] | | | | | | [address] | | | | | | [phone] | | | +--------+ + + + [...] Miscellaneous Notes Telephone Encounter - Ashley Chávez, Shelf Filler - 10/23/2019 10:49 AM [facility] [...] her back when I have her recommendations. JDW:INTAKE CLINICIAN-AAMA. [facility] umented in this encounter Plan of [...] [address] | | | | | | [place] [address] | | | | | | [phone] | | | | | | | | +--------+ + + + + | 08/28/ | Office | Cardiology | StefanielarryDora | | 2019 | Visit | | [address] | | | | | | [address] | | | | | | [place] [address] | | | | | | [phone] | | | | | | | | +--------+ + + + + documented as of this encounter Visit Diagnoses Not on filedocumented in this encounter"
--- OUTSIDE RECORDS SUMMARY | ~2020-05-25 | XMS | Encounter Summary ---
Demographics + + + | Address | [address] | | | [place] [address] | + + + | Home Phone [...] [place], [place] | | | | | [address] | | + + + + + Care Team Providers + +------+ + | Care Drafter Marine Name | Role | Phone | + +------+ + PCP | Unavailable | + +------+ + Encounter Details +--------+ + + + + | Date | Type | Department | Care Team | Description | +--------+ + + + + | 12/06/ | Hospital | [facility] | | | | 1994 | Encounter | MED CTR LABORATORY | | | | | | [address] | | | | | | [place] | | | | | | [address] | | | | | | [phone] | | | +--------+ + + + [...] | | | | | [place] [address] | | | | | | [phone] | | | | | | | | +--------+ + + + + | 08/28/ | Office | Cardiology | Dora De La Torre | | | 2020 | Visit | | [address] | | | | | | [address] | | | | | | [place] [address] | | | | | | [phone] | | | | | | | | +--------+ + + + + documented as of this encounter Visit Diagnoses Not on filedocumented in this encounter"
--- OUTSIDE RECORDS SUMMARY | ~2020-05-25 | XMS | Encounter Summary ---
Demographics + + + | Address | [address] | | | [place] [address] | + + + | Home Phone [...] [place] | | | | | [address] | | + + + + + Care Team Providers + +------+ + | Care Binitrotoluene Operator Name | Role | Phone | [...] [place] | | | | | | [address] | | | | | | [phone] | | | +--------+ + + + [...] | | | | | [place] [address] | | | | | | [phone] | | | | | | | | +--------+ + + + + | 08/28/ | Office | Cardiology | Dora De La Torre | | | 2020 | Visit | | [address] | | | | | | [address] | | | | | | [place] [address] | | | | | | [phone] | | | | | | | | +--------+ + + + + documented as of this encounter Visit Diagnoses Not on filedocumented in this encounter"
--- OUTSIDE RECORDS SUMMARY | ~2020-05-25 | XMS | Encounter Summary ---
Demographics + + + | Address | [address] | | | [place] [address] | + + + | Home Phone [...] [place] | | | | | [address] | | + + + + + Care Team Providers + +------+ + | Care Apprentice Lineman Third Step Name | Role | Phone | + [...] + + | 02/13/ | Office | [facility] | Dora De La Torre | History of atrial | | 2020 | Visit | CARDIOLOGY [place] | [address] | fibrillation | | | | [address] | [address] | (Primary Dx); New | | | | [address] | [place] [address] | onset left bundle | | | | [place] | [phone] | branch block (LBBB); | | | | [address] | | Benign essential | | | | [phone] | | HTN; History of | | [...] | | | | | | obesity) ([facility]) | +--------+---------+ + + + [...] 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 Her [id number] VASC score is 4 (stroke, HTN, gender) [...] She has previously seen Dr. Garland in [place], and different sleep provider in [facility] when lived over there. 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 Psychiatric/Behavioral: Bipolar/Schizophrenia. Tx'd by [employer] Vaccines: Current on flu vaccine: 2019 Current on pneumonia vaccine:PPSV 23 05/29/2013 Habits/Social : Denies history of smoking. Denies EtOH use. Denies recreational or illici t drug use. Exercises sporadically. Lives in [place] . Outpatient Medications Prior to Visit Medication [...] by mouth nightly. Blood Glucose Monitoring Suppl ([employer] VERIO FLEX SYSTEM) w/Device KIT by [...] discomfort, patient unable to walk on eriberto dmKIHEITAI. Resting EKG normal sinus rhythm, arrhythmias ventricular [...] bundle branch block. Ra te 105 bpm, IL 184 ms, QRS 144 ms, QTC 489 ms, tracing personally reviewed by me, and compar ed to EKG performed in December , rate is less well-controlled LABS Labs: 12/26/2018: ( [facility])CMP: Sodium 139, potassium 4.2, chloride 99, BUN 10, creatinine 0. 7, BNP 28. CBC: WBC 7.8, hemoglobin 14.3, hematocrit 42.7, platelets 214 Labs: 09/28/2019:( [facility]) CBC: WBC 7.8, hemoglobin 14.9, hematocrit 43.8, platelets 221. C MP: Sodium 132, potassium 4.2, chloride 95, AST 76, ALT 76, alk phos 134 Labs: 10/11/2019:( [facility]) CBC: WBC 6.7, RBC 4.97, hemoglobin 15.2, hematocrit 44.7, platel ets 200. CMP: Glucose 385, BUN 7, creatinine 0.62, GFR 97, sodium 131, potassium 4.1, chlor kelby 95, albumin 4.3, total bilirubin 0.6, AST 75, ALT 73, alk phos 144. Thyroid: TSH 4.27 Labs: 10/12/2020:( [facility]) CBC: WBC 7, RBC 4.93, hemoglobin 14.7, hematocrit 44.1, platele ts 186 normal UA CMP: Glucose 381, BUN 6, creatinine 0.63, GFR 95, sodium 133, potassium 3.8 , chloride 97, albumin 4.3, total bili 0.6, AST 62, ALT 75, alk phos 145 thyroid: TSH 3.07 Labs: 10/20/2019:( [facility]) CBC: WBC 7.1, RBC [...] reviewed her EKG and Echo with her mica sizer Dr. Peterson, who was in clin ic [...] Obesity, Class III, BMI 40-49.9 (morbid obesity) ([facility]) Orders Placed This Encounter Procedures [...] for continuity of care purp osHannah BUCIO [facility] 02/15/2020 docume nted in this encounter [...] [address] | | | | | | [place] [address] | | | | | | [phone] | | | | | | | | +--------+ + + + + | 08/28/ | Office | Cardiology | Dora De La Torre | | | 2019 | Visit | | [address] | | | | | | [address] | | | | | | [place] [address] | | | | | | [phone] | | | | | | | [...] | | | | | D[place]A [place] ([id number]) on | | | | | | [...]
--- OUTSIDE RECORDS SUMMARY | ~2020-05-25 | XMS | Encounter Summary ---
Demographics + + + | Address | [address] | | | [place] [address] | + + + | Home Phone [...] [place] | | | | | [address] | | + + + + + Care Team Providers + +------+ + | Care Quality Engineer Name | Role | Phone | [...] + + | 10/25/ | Telephone | [facility] | Ashley Chávez | Other (Patient to | | 2019 | | CARDIOLOGY [place], Watch Supervisor | stay on the same | | | | [address] | | dose. ) | | | | [place] | | | | | | [address] | | | | | | [phone] | | | +--------+ + + + [...] Miscellaneous Notes Telephone Encounter - Ashley Chávez Watch Supervisor - 10/25/2019 8:44 AM PSTCall m [...] CLAYTONW:IRINA-AAMA. el ephone Encounter - Ashley Chávez Watch Supervisor - 10/25/2019 8:40 AM PST----- Mess age from Desiree Peterson DO sent at 10/24/2019 8:42 PM PST ----- Regarding: RE: Patient's Metoprolol. We can stay on the same dose of metoprolol for now. Thanks ----- Message ----- From: Ashley Chávez Watch Supervisor Sent: 10/23/2019 10:52 AM PST To: [...] | | | | | [place] [address] | | | | | | [phone] | | | | | | | | +--------+ + + + + | 08/28/ | Office | Cardiology | Dora De La Torre | | | 2020 | Visit | | [address] | | | | | | [address] | | | | | | [place] [address] | | | | | | [phone] | | | | | | | | +--------+ + + + + documented as of this encounter Visit Diagnoses Not on filedocumented in this encounter"
--- OUTSIDE RECORDS SUMMARY | ~2020-05-25 | XMS | Encounter Summary ---
Demographics + + + | Address | [address] | | | [place] [address] | + + + | Home Phone [...] [place] | | | | | [address] | | + + + + + Care Team Providers + +------+ + | Care Shipping Manager Name | Role | Phone | [...] | | | | | ECHO | [place], [place] | | | | | | Complete | [address] | | | | | | | Phone: | | | | | | | [phone] | | | | | | | Fax: | | | | | | | [phone] | | + +--------+ + + + + Reason for Visit + + + | Reason | Comments | + + + | Follow-up | 6 month | + + + Encounter Details +--------+---------+ + + + | Date | Type | Department | Care Team | Description | +--------+---------+ + + + | 04/03/ | Office | [facility] | Desiree Peterson DO | Left bundle branch | | 2020 | Visit | CARDIOLOGY [place] | [address] | block (Primary Dx); | | | | [address] | [address] [place], [place] | Benign essential | | | | [address] | [address] | HTN; New onset left | | | | [place], [place] | | bundle branch block | | | | [address] | | (LBBB); Obesity, | | | | [phone] | | Class III, BMI | | | | | | 40-49.9 (morbid | | | | | | obesity) ([facility]); | | | | | | History [...] Peterson DO - 04/03/2020 10:20 AM PDT [facility] Cardiology Follow Up Note [...] rtake in exercise. She recently got a [employer] and has been walking him more regularly. 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 Blood Glucose Monitoring Suppl ([employer] FLEX SYSTEM) w/Device KIT by Does not ap ply route. budesonide-formoterol (SYMBICORT) 160-4.5 MCG/ACT inhaler Inhale 2 puffs into the lungs 2 (two) times daily. Calcium Carbonate Antacid 1000 MG tablet Take 1,000 mg by mouth 3 (three) times daily. Cholecalciferol (VITAMIN D3) 08086 units CAPS Take by mouth once a [...] ALT 76, alkaline phosphatase 134. Labs: 10/20/2019:( [facility]) CBC: WBC 7.1, RBC 4.93, hemoglobin [...] [address] | | | | | | [place] [address] | | | | | | [phone] | | | | | | | | +--------+ + + + + | 08/28/ | Office | Cardiology | Dora De La Torre | | | 2020 | Visit | | [address] | | | | | | [address] | | | | | | [place] [address] | | | | | | [phone] | | | | | | | [...]
--- OUTSIDE RECORDS SUMMARY | ~2020-05-25 | XMS | Encounter Summary ---
Demographics + + + | Address | [address] | | | [place] [address] | + + + | Home Phone [...] [place] | | | | | [address] | | + + + + + Care Team Providers + +------+ + | Care Director Of Music Therapy Name | Role | Phone | [...] + + | 02/05/ | Telephone | [facility] | Ashley Chávez | Other (Patient | | 2020 | | CARDIOLOGY [place], Piecer Up | ) | | | | [address] | | | | | | [place] | | | | | | [address] | | | | | | [phone] | | | +--------+ + + + [...] t week . elephone Enco Ashley Wong, Piecer Up - 02/06/2020 2:53 PM PDTPatient states that [...] advise. Thank you! (sent to Dora Mendez) JDW:HAND TUBE WINDER-AAMA. doc umented in this encounter Plan of [...] [address]U | | | | | | [place] [address] | | | | | | [phone] | | | | | | | | +--------+ + + + + | 08/28/ | Office | Cardiology | Dora De La Torre | | | 2019 | Visit | | CAROLINE Mendez [address] | | | | | | [address] | | | | | | [facility] [place] [address] | | | | | | [phone] | | | | | | | | +--------+ + + + + documented as of this encounter Visit Diagnoses Not on filedocumented in this encounter
--- OUTSIDE RECORDS SUMMARY | ~2020-05-25 | XMS | Encounter Summary ---
Demographics + + + | Address | [address] | | | [place] [address] | + + + | Home Phone [...] [place] | | | | | [address] | | + + + + + Care Team Providers + +------+ + | Care Client Advocate Name | Role | Phone | [...] | 09/26/ | Refill | [facility] | Frandy Teresa, | Medication Refill | | 2013 | | NE[address] | DO [address] | | | | | [facility] | [address] [place], [place] | | | | | [place], [place] | [id number] | | | | | [address] | | | | | | [phone] | | | +--------+--------+ + + + [...] [facility]. [facility] Megan Schreiber RN at 09/26/2014 [...] [address]U | | | | | | [place] [address] | | | | | | [phone] | | | | | | | | +--------+ + + + + | 08/28/ | Office | Cardiology | Dora De La Torre | | | 2019 | Visit | | CAROLINE Mendez [address] | | | | | | [address] | | | | | | [place] [address] | | | | | | [phone] | | | | | | | | +--------+ + + + + documented as of this encounter Visit Diagnoses Not on filedocumented in this encounter"
--- OUTSIDE RECORDS SUMMARY | ~2020-05-25 | XMS | Encounter Summary ---
Demographics + + + | Address | [address] | | | [place] [address] | + + + | Home Phone [...] [place] | | | | | [address] | | + + + + + Care Team Providers + +------+ + | Care Alterations Manager Name | Role | Phone | [...] | 06/27/ | Office | [facility] | Yecenia Richardson, | Hypertension, | | 2019 | Visit | CARDIOLOGY [place] | MD Nitin RODRIGUES | unspecified type | | | | [address] | [place], [place] | (Primary Dx); | | | | [facility] | [address] | Bradycardia | | | | [place] | | | | | | [address] | | | | | | [phone] | | | +--------+---------+ + + + [...] urgent basis. Had an appointment today in [facility]. She has been feeling dizzy as [...] Take by mouth. Blood Glucose Monitoring Suppl ([employer] VERIO FLEX SYSTEM) w/Device KIT by [...] mg by mouth Daily. Cholecalciferol (VITAMIN D-3) 54981 units CAPS Take 50,000 Units by mouth [...] tablet Take 10 mg by mouth nightly. [place]-3 Fatty [...] | | | | | [place] [address] | | | | | | [phone] | | | | | | | | +--------+ + + + + | 08/28/ | Office | Cardiology | Dora De La Torre | | | 2019 | Visit | | CAROLINE Mendez [address] | | | | | | [address] | | | | | | [place] [address] | | | | | | [phone] | | | | | | | [...]
--- OUTSIDE RECORDS SUMMARY | ~2020-05-25 | XMS | Encounter Summary ---
Demographics + + + | Address | [address] | | | [place] [address] | + + + | Home Phone [...] [place], [place] | | | | | [address] | | + + + + + Care Team Providers + +------+ + | Care Time Study Technician Name | Role | Phone | + +------+ + PCP | Unavailable | + +------+ + Encounter Details +--------+ + + + + | Date | Type | Department | Care Team | Description | +--------+ + + + + | 03/13/ | Hospital | [facility] | | | | 1996 - | Encounter | MED CTR GENERIC OP | | | | | | CONV DEPT [address] | | | | 03/21/ | | [address], | | | | 1996 | | [place] [address] | | | | | | [phone] | | | +--------+ + + + [...] CANTU | | | | | | [place] [address] | | | | | | [phone] | | | | | | | | +--------+ + + + + | 08/28/ | Office | Cardiology | Dora De La Torre | | | 2019 | Visit | | CAROLINE Mendez [address] | | | | | | [address] | | | | | | [place] [address] | | | | | | [phone] | | | | | | | | +--------+ + + + + documented as of this encounter Visit Diagnoses Not on filedocumented in this encounter"
--- OUTSIDE RECORDS SUMMARY | ~2020-05-25 | XMS | Encounter Summary ---
Demographics + + + | Address | [address] | | | [place] [address] | + + + | Home Phone [...] [place] | | | | | [address] | | + + + + + Care Team Providers + +------+ + | Care Pile Driver Operator Name | Role | Phone [...] | 08/26/ | Refill | [facility] [place] | Frandy Teresa, | Medication Refill | | 2013 | | NEUROSURGERY [address] | DO [address] | | | | | [facility] | [address] [place], [place] | | | | | [place], [place] | [id number] | | | | | [address] | | | | | | [phone] | | | +--------+--------+ + + + [...] to notify that p rescription refill for [place] has been authorized. Informed about MRI results per MD results. Also notified about new medication neurontin. Pt verbalized understanding and will notify o ur office if her numbness to bilat feet (upper and lower) doesn't improve. Pt requested refi ll rx of [place] to be mailed via certified mail to her [facility] signed by Megan cShreiber, RN at 08/27/2014 10:40 AM PSTTelephone Encounter [...] PSTPt called to requesting medication refill of [place]. Pt c/o l ower back and left [...] [address]U | | | | | | [place] [address] | | | | | | [phone] | | | | | | | | +--------+ + + + + | 08/28/ | Office | Cardiology | Dora De La Torre | | | 2019 | Visit | | CAROLINE Mendez [address] | | | | | | [address] | | | | | | [place] [address] | | | | | | [phone] | | | | | | | | +--------+ + + + + documented as of this encounter Visit Diagnoses Not on filedocumented in this encounter"
--- OUTSIDE RECORDS SUMMARY | ~2020-05-25 | XMS | Encounter Summary ---
Demographics + + + | Address | [address] | | | [place] [address] | + + + | Home Phone [...] [place] | | | | | [address] | | + + + + + Care Team Providers + +------+ + | Care Dinkey Motor Operator Name | Role | Phone [...] + + | 08/15/ | Documentati | [facility] | Kathraine Moncada, | Other (urgent | | 2019 | on | CARDIOLOGY [place] | Technologist | report) | | | | [address] | | | | | | [place] | | | | | | [address] | | | | | | [phone] | | | +--------+ + + + [...] | | | | | [place] [address] | | | | | | [phone] | | | | | | | | +--------+ + + + + | 08/28/ | Office | Cardiology | Dora De La Torre | | | 2020 | Visit | | CAROLINE Mendez [address] | | | | | | [address] | | | | | | [place] [address] | | | | | | [phone] | | | | | | | | +--------+ + + + + documented as of this encounter Visit Diagnoses Not on filedocumented in this encounter"
--- OUTSIDE RECORDS SUMMARY | ~2020-05-25 | XMS | Encounter Summary ---
Demographics + + + | Address | [address] | | | [place] [address] | + + + | Home Phone [...] [place] | | | | | [address] | | + + + + + [...] + + | 03/26/ | Telephone | [facility] | Thierry Fry | Medication Prior | | 2014 | | MEDICINE [address] [place] [address] | MD Lisa [address] | Authorization | | | | [employer], | [place] [employer] [place] | (Dexilant 60Mg) | | | | [place] [address] | [address] | | | | | [phone] | | | +--------+ + + + [...] were not received I contacted insurance ID# [id number] This has been denied. The patient must try and fail 2 of the following Omeprazole Protonix Prevacid Nexium Please advise elepho ne Encounter - Saba Acosta Cert MA - 03/26/2015 1:32 PM PDTCalled and requested a prior authorization Requested for via fax from [employer] Prior auth medication Dexilant 60MgElectronically signed by [...] | | | | | [place] [address] | | | | | | [phone] | | | | | | | | +--------+ + + + + | 08/28/ | Office | Cardiology | Dora De La Torre | | | 2020 | Visit | | CAROLINE Mendez [address] | | | | | | [address] | | | | | | [place] [address] | | | | | | [phone] | | | | | | | | +--------+ + + + + documented as of this encounter Visit Diagnoses Not on filedocumented in this encounter"
--- OUTSIDE RECORDS SUMMARY | ~2020-05-25 | XMS | Encounter Summary ---
Demographics + + + | Address | [address] | | | [place] [address] | + + + | Home Phone [...] [place] | | | | | [address] | | + + + + + Care Team Providers + +------+ + | Care Linux Solaris Administrator Name | Role | Phone | [...] [address] | | | | | [place], [place] | Shaheen Simons | | | | | [address] | [place] [address] | | | | | [phone] | [phone] | | | | | | | [...] [address] | | | | | | [place] [address] | | | | | | [phone] | | | | | | | | +--------+ + + + + | 08/28/ | Office | Cardiology | Dora De La Torre | | | 2019 | Visit | | CAROLINE Mendez [address] | | | | | | [address] | | | | | | [place] [address] | | | | | | [phone] | | | | | | | [...] Testing | | | performed at [facility];[address] [place] [address];[place] [address] CULTURE | | | 50,000 TO 100,000 CFU/ML | | | MIXED GRAM POSITIVE HAIDER NO SUSCEPTIBILITY TO FOLLOW | | | MULTIPLE ORGANISM TYPES PRESENT, | | | SUGGESTIVE OF CONTAMINATION OR COLONIZATION. SUGGEST RECOLLECTION FOR | | | CULTURE. Testing | | | performed at [facility];[address] [place] [address];[place] [address] REPORT | | | STATUS 06/08/2012 FINAL [...]
--- OUTSIDE RECORDS SUMMARY | ~2020-05-25 | XMS | Encounter Summary ---
Demographics + + + | Address | [address] | | | [place] [address] | + + + | Home Phone [...] [place], [place] | | | | | [address] | | + + + + + Care Team Providers + +------+ + | Care Ship Surveyor Name | Role | Phone | + +------+ + PCP | Unavailable | + +------+ + Encounter Details +--------+ + + + + | Date | Type | Department | Care Team | Description | +--------+ + + + + | 06/07/ | Hospital | [facility] | | | | 1991 - | Encounter | MED CTR GENERIC OP | | | | | | CONV DEPT [address] | | | | 10/07/ | | [address], | | | | 1991 | | [place] [address] | | | | | | [phone] | | | +--------+ + + + [...] [address] | | | | | | [place] [address] | | | | | | [phone] | | | | | | | | +--------+ + + + + | 08/28/ | Office | Cardiology | Dora De La Torre | | | 2019 | Visit | | CAROLINE Mendez [address] | | | | | | [address] | | | | | | [place] [address] | | | | | | [phone] | | | | | | | | +--------+ + + + + documented as of this encounter Visit Diagnoses Not on filedocumented in this encounter"
--- OUTSIDE RECORDS SUMMARY | ~2020-05-25 | XMS | Encounter Summary ---
Demographics + + + | Address | [address] | | | [place] [address] | + + + | Home Phone [...] [place] | | | | | [address] | | + + + + + Care Team Providers + +------+ + | Care Logistics Assistant Name | Role | Phone | [...] [place] | | | | | | [address] | | | | | | [phone] | | | +--------+ + + + [...] | | | | | [place] [address] | | | | | | [phone] | | | | | | | | +--------+ + + + + | 08/28/ | Office | Cardiology | Dora De La Torre | | | 2020 | Visit | | CAROLINE Mendez [address] | | | | | | [address] | | | | | | [place] [address] | | | | | | [phone] | | | | | | | | +--------+ + + + + documented as of this encounter Visit Diagnoses Not on filedocumented in this encounter"
--- OUTSIDE RECORDS SUMMARY | ~2020-05-25 | XMS | Encounter Summary ---
Demographics + + + | Address | [address] | | | [place] [address] | + + + | Home Phone [...] [place] | | | | | [address] | | + + + + + Care Team Providers + +------+ + | Care Career Services Assistant Name | Role | Phone | [...] + + | 08/24/ | Documentati | [facility] | Katharine Moncada, | Other (urgent | | 2019 | on | CARDIOLOGY [place] | Technologist | report) | | | | [address] | | | | | | [place] | | | | | | [address] | | | | | | [phone] | | | +--------+ + + + [...] | | | | | [place] [address] | | | | | | [phone] | | | | | | | | +--------+ + + + + | 08/28/ | Office | Cardiology | Dora De La Torre | | | 2020 | Visit | | CAROLINE Mendez [address] | | | | | | [address] | | | | | | [place] [address] | | | | | | [phone] | | | | | | | | +--------+ + + + + documented as of this encounter Visit Diagnoses Not on filedocumented in this encounter"
--- OUTSIDE RECORDS SUMMARY | ~2020-05-25 | XMS | Encounter Summary ---
Demographics + + + | Address | [address] | | | [place] [address] | + + + | Home Phone [...] [place], [place] | | | | | [address] | | + + + + + Care Team Providers + +------+ + | Care Buttermilk Drier Operator Name | Role | Phone | + +------+ + PCP | Unavailable | + +------+ + Encounter Details +--------+ + + + + | Date | Type | Department | Care Team | Description | +--------+ + + + + | 01/06/ | Hospital | [facility] | | | | 1992 | Encounter | MED CTR LABORATORY | | | | | | [address] | | | | | | [place] | | | | | | [address] | | | | | | [phone] | | | +--------+ + + + [...] | | | | | [place] [address] | | | | | | [phone] | | | | | | | | +--------+ + + + + | 08/28/ | Office | Cardiology | Dora De La Torre | | | 2020 | Visit | | CAROLINE Mendez [address] | | | | | | [address] | | | | | | [place] [address] | | | | | | [phone] | | | | | | | | +--------+ + + + + documented as of this encounter Visit Diagnoses Not on filedocumented in this encounter"
--- OUTSIDE RECORDS SUMMARY | ~2020-05-25 | XMS | Encounter Summary ---
Demographics + + + | Address | [address] | | | [place] [address] | + + + | Home Phone [...] [place] | | | | | [address] | | + + + + + Care Team Providers + +------+ + | Care Commercial Tire Service Technician Name | Role | Phone [...] + + | 08/14/ | Documentati | [facility] | Katharine Moncada, | Other (urgent | | 2019 | on | CARDIOLOGY [place] | Technologist | report) | | | | [address] | | | | | | [place] | | | | | | [address] | | | | | | [phone] | | | +--------+ + + + [...] | | | | | [place] [address] | | | | | | [phone] | | | | | | | | +--------+ + + + + | 08/28/ | Office | Cardiology | Dora De La Torre | | | 2020 | Visit | | CAROLINE Mendez [address] | | | | | | [address] | | | | | | [place] [address] | | | | | | [phone] | | | | | | | | +--------+ + + + + documented as of this encounter Visit Diagnoses Not on filedocumented in this encounter"
--- OUTSIDE RECORDS SUMMARY | ~2020-05-25 | XMS | Encounter Summary ---
Demographics + + + | Address | [address] | | | [place] [address] | + + + | Home Phone [...] [place] | | | | | [address] | | + + + + + Care Team Providers + +------+ + | Care Microwave Oven Assembler Name | Role | Phone | [...] + + | 08/20/ | Documentati | [facility] | Katharine Moncada, | Other (urgent | | 2019 | on | CARDIOLOGY [place] | Technologist | report) | | | | [address] | | | | | | [place] | | | | | | [address] | | | | | | [phone] | | | +--------+ + + + [...] | | | | | [place] [address] | | | | | | [phone] | | | | | | | | +--------+ + + + + | 08/28/ | Office | Cardiology | Dora De La Torre | | | 2020 | Visit | | CAROLINE Mendez [address] | | | | | | [address] | | | | | | [place] [address] | | | | | | [phone] | | | | | | | | +--------+ + + + + documented as of this encounter Visit Diagnoses Not on filedocumented in this encounter"
--- OUTSIDE RECORDS SUMMARY | ~2020-05-25 | XMS | Encounter Summary ---
Demographics + + + | Address | [address] | | | [place] [address] | + + + | Home Phone [...] [place] | | | | | [address] | | + + + + + Care Team Providers + +------+ + | Care Delivery Route Driver Name | Role | Phone [...] + + | 09/10/ | Documentati | [facility] | Katharine Moncada, | Other (urgent | | 2019 | on | CARDIOLOGY [place] | Technologist | report) | | | | [address] | | | | | | [place] | | | | | | [address] | | | | | | [phone] | | | +--------+ + + + [...] | | | | | [place] [address] | | | | | | [phone] | | | | | | | | +--------+ + + + + | 08/28/ | Office | Cardiology | Dora De La Torre | | | 2020 | Visit | | CAROLINE Mendez [address] | | | | | | [address] | | | | | | [place] [address] | | | | | | [phone] | | | | | | | | +--------+ + + + + documented as of this encounter Visit Diagnoses Not on filedocumented in this encounter"
--- OUTSIDE RECORDS SUMMARY | ~2020-05-25 | XMS | Encounter Summary ---
Demographics + + + | Address | [address] | | | [place] [address] | + + + | Home Phone [...] [place] | | | | | [address] | | + + + + + Care Team Providers + +------+ + | Care Historiography Teacher Name | Role | Phone | [...] 2018 | | CARDIOLOGY [place] | Pollo, Driver Trainee | tell patient what | | | | [address] | | Nicholas said. ) | | | | [place] [address] | | | | | | [place] | | | | | | [address] | | | | | | [phone] | | | +--------+ + + + [...] Miscellaneous Notes Telephone Encounter - Ashley Chávez, Driver Trainee - 08/16/2019 2:57 PM PDTCall m cierra to patient to advise of Dr. Peterson's notes. Patient stated understanding. JKASSIE:NETWORK SUPPORT SPECIALIST-AAMA el ephone Encounter - Ashley Chávez Driver Trainee - 08/16/2019 2:56 PM PDT----- Mess age [...] Thanks. ----- Message ----- From: Lesa Ochoa, Driver Trainee Sent: 08/13/2019 13:31 To: Desiree Peterson DO [...] [address] | | | | | | [place] [address] | | | | | | [phone] | | | | | | | | +--------+ + + + + | 08/28/ | Office | Cardiology | Dora De La Torre | | | 2019 | Visit | | [address] Mendez [address] | | | | | | [address] | | | | | | [place] [address] | | | | | | [phone] | | | | | | | | +--------+ + + + + documented as of this encounter Visit Diagnoses Not on filedocumented in this encounter"
--- OUTSIDE RECORDS SUMMARY | ~2020-05-25 | XMS | Encounter Summary ---
Demographics + + + | Address | [address] | | | [place] [address] | + + + | Home Phone [...] [place] | | | | | [address] | | + + + + + Care Team Providers + +------+ + | Care Creative Art Director Name | Role | Phone | [...] | 01/02/ | Telephone | [facility] | Frandy Teresa, | Other (6m x-ray ) | | 2015 | | NEUROSURGERY [address] | DO [address] | | | | | [address] | [address] [place], [place] | | | | | [place], [place] | [id number] | | | | | [address] | | | | | | [phone] | | | +--------+ + + + [...] for review. The [facility]. She will let us know [...] [address] | | | | | | [place] [address] | | | | | | [phone] | | | | | | | | +--------+ + + + + | 08/28/ | Office | Cardiology | Dora De La oTrre | | | 2019 | Visit | | [address] Mendez [address] | | | | | | [address] | | | | | | [place] [address] | | | | | | [phone] | | | | | | | | +--------+ + + + + documented as of this encounter Visit Diagnoses Not on filedocumented in this encounter"
--- OUTSIDE RECORDS SUMMARY | ~2020-05-25 | XMS | Encounter Summary ---
Demographics + + + | Address | [address] | | | [place] [address] | + + + | Home Phone [...] [place] | | | | | [address] | | + + + + + Care Team Providers + +------+ + | Care Boat Person Name | Role | Phone | [...] | Frandy Simons DO | [address] | | | | | of skin | [address] | [place], | | | | | sensation | [address] | [place] | | | | | Arthrodesis | [place], [place] | [address] | | | | | status Left | [address] | Phone: | | | | | leg | Phone: | [phone] | | | | | weakness | [phone] | Fax: | | | | | Procedures | Fax: | [phone] | | | | | MRI Lumbar | [phone] | | | | | | Spine [...] [address] | [address] [place], [place] | | | | | [place], [place] | [id number] | | | | | [address] | | | | | | [phone] | | | +--------+ + + + [...] encounter Miscellaneous Notes Addendum Note - Shayne Aargon Cert MA - 08/13/2014 8:55 AM PDT Addended by: SHAYNE ARAGON on: 08/13/2014 08:55 Modules accepted: Orders elephone Mino ramirez - Shayne Aragon Cert MA - 08/13/2014 8:55 AM PDTI scheduled samson for her MRI here at [facility] on 08/19. SHAYNE ARAGON eleFrandy Diaz DO [...] [address] | | | | | | [place] [address] | | | | | | [phone] | | | | | | | | +--------+ + + + + | 08/28/ | Office | Cardiology | Dora De La Torre | | | 2020 | Visit | | [address] | | | | | | [address] | | | | | | [place] [address] | | | | | | [phone] | | | | | | | [...] the round structure with high T1 and V3cfkimr in the right L3 vertebral | | [...] + | MISCELLANEOUS LAB | | | [phone] | + +---------+ + + | MISCELANIOUS LAB | | | [phone] | + +---------+ + + documented in [...]
--- OUTSIDE RECORDS SUMMARY | ~2020-05-25 | XMS | Encounter Summary ---
Demographics + + + | Address | [address] | | | [place] [address] | + + + | Home Phone [...] [place] | | | | | [address] | | + + + + + Care Team Providers + +------+ + | Care Lead Mechanical Engineer Name | Role | Phone [...] + + | 08/15/ | Documentati | [facility] | Katharine Moncada, | Other (urgent | | 2019 | on | CARDIOLOGY [place] | Technologist | report) | | | | [address] | | | | | | [place] | | | | | | [address] | | | | | | [phone] | | | +--------+ + + + [...] | | | | | [place] [address] | | | | | | [phone] | | | | | | | | +--------+ + + + + | 08/28/ | Office | Cardiology | Dora De La Torre | | | 2020 | Visit | | [address] Mendez [address] | | | | | | [address] | | | | | | [place] [address] | | | | | | [phone] | | | | | | | | +--------+ + + + + documented as of this encounter Visit Diagnoses Not on filedocumented in this encounter"
--- OUTSIDE RECORDS SUMMARY | ~2020-05-25 | XMS | Encounter Summary ---
Demographics + + + | Address | [address] | | | [place] [address] | + + + | Home Phone [...] [place] | | | | | [address] | | + + + + + Care Team Providers + +------+ + | Care Varnish Finisher Name | Role | Phone | [...] + | 05/13/ | Telephone | [facility] | Frandy Teresa, | Other | | 2013 | | NEUROSURGERY [address] | DO [address] | | | | | [address] | [address] [place], [place] | | | | | [place], [place] | [id number] | | | | | [address] | | | | | | [phone] | | | +--------+ + + + [...] [address] | | | | | | [place] [address] | | | | | | [phone] | | | | | | | | +--------+ + + + + | 08/28/ | Office | Cardiology | Dora De La Torre | | | 2019 | Visit | | [address] | | | | | | [address] | | | | | | [place] [address] | | | | | | [phone] | | | | | | | | +--------+ + + + + documented as of this encounter Visit Diagnoses Not on filedocumented in this encounter"
--- OUTSIDE RECORDS SUMMARY | ~2020-05-25 | XMS | Encounter Summary ---
Demographics + + + | Address | [address] | | | [place] [address] | + + + | Home Phone [...] [place] | | | | | [address] | | + + + + + Care Team Providers + +------+ + | Care Jacquard Plate Maker Name | Role | Phone | + +------+ + | Natalee Andersen NP | PCP | | + +------+ + Encounter Details +--------+ + + + + | Date | Type | Department | Care Team | Description | +--------+ + + + + | 05/02/ | Hospital | [facility] | Frandy Teresa, | Back pain | | 2014 | Encounter | MED CTR XRAY [address] | DO [address] | | | | | [place] | [place] [address] [place] | | | | | [place] [address] | [address] | | | | | [phone] | | | +--------+ + + + [...] + + + +---------+ + + | Delcambre-3 Fatty | Take 1,000 mg by | [...] | | | | | [place] [address] | | | | | | [phone] | | | | | | | | +--------+ + + + + | 08/28/ | Office | Cardiology | Dora De La Torre | | | 2019 | Visit | | [address] | | | | | | [address] | | | | | | [place] [address] | | | | | | [phone] | | | | | | | [...] + | MISCELLANEOUS LAB | | | [phone] | + +---------+ + + | MISCELANIOUS LAB | | | [phone] | + +---------+ + + documented in this encounter Visit Diagnoses + + | Diagnosis | + + | Back pain Backache, unspecified | + + documented in this encounter"
--- OUTSIDE RECORDS SUMMARY | ~2020-05-25 | XMS | Encounter Summary ---
Demographics + + + | Address | [address] | | | [place] [address] | + + + | Home Phone [...] [place] | | | | | [address] | | + + + + + Care Team Providers + +------+ + | Care Business Analytics Faculty Member Name | Role | Phone [...] + | 08/09/ | Clinical | [facility] | Desiree Peterson DO | Syncope, unspecified | | 2019 | Support | CARDIOLOGY [place] | [address] | syncope type | | | | [address] | [place], [place] | | | | | [place] [address] | [address] | | | | | [place] | | | | | | [address] | Dora De La Torre | | | | | [phone] | [address] | | | | | | [address] | | | | | | [place] [address] | | | | | | [phone] | | | | | | | [...] [place] | | | | | | [place] [address] | | | | | | [phone] | | | | | | | | +--------+ + + + + | 08/28/ | Office | Cardiology | Dora De La Torre | | | 2019 | Visit | | [address] | | | | | | [address] | | | | | | [place] [address] | | | | | | [phone] | | | | | | | | +--------+ + + + + documented as of this encounter Visit Diagnoses + + | Diagnosis | + + | Syncope, unspecified syncope type | + + documented in this encounter"
--- OUTSIDE RECORDS SUMMARY | ~2020-05-25 | XMS | Encounter Summary ---
Demographics + + + | Address | [address] | | | [place] [address] | + + + | Home Phone [...] [place], [place] | | | | | [address] | | + + + + + Care Team Providers + +------+ + | Care Product Development Engineer Name | Role | Phone | [...] | | | 1997 | | [place] [address] | | | | | | [phone] | | | +--------+ + + + [...] [address] | | | | | | [place] [address] | | | | | | [phone] | | | | | | | | +--------+ + + + + | 08/28/ | Office | Cardiology | Dora De La Torre | | | 2019 | Visit | | [address] | | | | | | [address] | | | | | | [place] [address] | | | | | | [phone] | | | | | | | | +--------+ + + + + documented as of this encounter Visit Diagnoses Not on filedocumented in this encounter"
--- OUTSIDE RECORDS SUMMARY | ~2020-05-25 | XMS | Encounter Summary ---
Demographics + + + | Address | [address] | | | [place] [address] | + + + | Home Phone [...] [place], [place] | | | | | [address] | | + + + + + Care Team Providers + +------+ + | Care Center Director Lead Teacher Name | Role | Phone | + +------+ + PCP | Unavailable | + +------+ + Encounter Details +--------+ + + + + | Date | Type | Department | Care Team | Description | +--------+ + + + + | 06/23/ | Hospital | [facility] | | | | 2000 | Encounter | MED CTR GENERIC OP | | | | | | CONV DEPT [address] | | | | | | [place], | | | | | | [place] [address] | | | | | | [phone] | | | +--------+ + + + [...] | | | | | [place] [address] | | | | | | [phone] | | | | | | | | +--------+ + + + + | 08/28/ | Office | Cardiology | Dora De La Torre | | | 2019 | Visit | | [address] | | | | | | [address] | | | | | | [place] [address] | | | | | | [phone] | | | | | | | | +--------+ + + + + documented as of this encounter Visit Diagnoses Not on filedocumented in this encounter"
--- OUTSIDE RECORDS SUMMARY | ~2020-05-25 | XMS | Encounter Summary ---
Demographics + + + | Address | [address] | | | [place] [address] | + + + | Home Phone [...] [place] | | | | | [address] | | + + + + + Care Team Providers + +------+ + | Care Drain Cleaner Plumber Name | Role | Phone | + [...] | | [address] | [place], [place] | | | | | [place], [place] | [address] | | | | | [address] | | | | | | [phone] | | | +--------+ + + + [...] [address] | | | | | | [place] [address] | | | | | | [phone] | | | | | | | | +--------+ + + + + | 08/28/ | Office | Cardiology | Dora De La Torre | | | 2019 | Visit | | [address] | | | | | | [address] | | | | | | [place] [address] | | | | | | [phone] | | | | | | | [...] 0.83 m/s | | | MV Dec Pickaway: 2.85 m/s2 MV DecT: 282.89 ms MV E Teodoro: 0.80 | | | m/s MV E/A Ratio: 0.96 E/E' Sept: 12.59 E' Lat: 0.08 m/s | | | E' Sept: 0.06 m/s RAP: 10 mmHg RV S': 0.11 m/s RVSP: | | | 27.96 mmHg TR maxP.96 mmHg TR Vmax: 2.11 m/s | | | Taker Away: Authenticated by: Desiree Peterson MD Report Date/Time: | | | -- 08_02-8-4050_8:31:1 | | + + + + + [...] (A-L): 19.60 | | ml/m2LAAs A2C: 15.44 [id number] A-L A2C: 43.84 mlLAESV MOD A2C: 42.12 mlLALs A2C: | | 4.61 cmLAAs A4C: 14.18 [id number] A-L A4C: 38.73 mlLAESV MOD A4C: 37.04 mlLALs A4C: | | 4.41 cmRAAs: 12.15 [id number] A-L: 28.54 mlRAESV MOD: 28.66 mlRALs: 4.39 | | cmTAPSE: 2.42 cmAV Env.Ti: 293.94 msAV maxP.18 mmHgAV meanP.09 mmHgAV | | Vmax: 1.88 m/Eddie Vmean: 1.25 m/Eddie VTI: 36.84 cmAVA Vmax: 2.06 cm2AVA (VTI): | | 2.24 [id number] Vmax: 0.00 cm2/m2AVAI (VTI): 0.00 cm2/m2LVOT Env.Ti: 299.59 msLVOT | | maxP.52 mmHgLVOT meanP.65 mmHgLVSI Dopp: 38.55 ml/m2LVSV Dopp: 82.89 | | mlLVOT Vmax: 1.27 m/sLVOT Vmean: 0.91 m/sLVOT VTI: 27.27 cmMV A Teodoro: 0.83 m/sMV | | Dec Pickaway: 2.85 m/s2MV DecT: 282.89 msMV E Teodoro: 0.80 m/sMV E/A Ratio: 0.96E/E' | | Sept: 12.59E' Lat: 0.08 m/sE' Sept: 0.06 m/sRAP: 10 mmHgRV S': 0.11 m/sRVSP: | | 27.96 mmHgTR maxP.96 mmHgTR Vmax: 2.11 m/s Taker Away:Authenticated by: | | Desiree Peterson MDReport Date/Time: -- 25_20-2-2039_8:31:1 IMPRESSION: 1. Overall left | | ventricular [...] A Teodoro: 0.83 m/s | |MV Dec Pickaway: 2.85 m/s2 | |MV DecT: 282.89 ms | |MV E Teodoro: 0.80 m/s | |MV E/A Ratio: 0.96 | |E/E' Sept: 12.59 | |E' Lat: 0.08 m/s | |E' Sept: 0.06 m/s | |RAP: 10 mmHg | |RV S': 0.11 m/s | |RVSP: 27.96 mmHg | |TR maxP.96 mmHg | |TR Vmax: 2.11 m/s | | | |Taker Away: | |Authenticated by: Desiree Peterson MD | |Report Date/Time: -- 37_35-4-0122_5:31:1 | | | |IMPRESSION: | |1. Overall [...]
--- OUTSIDE RECORDS SUMMARY | ~2020-05-25 | XMS | Encounter Summary ---
Demographics + + + | Address | [address] | | | [place] [address] | + + + | Home Phone [...] [place] | | | | | [address] | | + + + + + Care Team Providers + +------+ + | Care Investment Banking Manager Name | Role | Phone | [...] + + | 08/09/ | Documentati | [facility] | Katharine Moncada, | Other (end of study) | | 2019 | on | CARDIOLOGY [place] | Technologist | | | | | [address] | | | | | | [place], [place] | | | | | | [address] | | | | | | [phone] | | | +--------+ + + + [...] Technologist - 08/09/2019 11:59 PM PDT Cardiac Stock Preparation Supervisor Date of Event Monitor: 08/09/19 [...] [address] | | | | | | [place] [address] | | | | | | [phone] | | | | | | | | +--------+ + + + + | 08/28/ | Office | Cardiology | Dora De La Torre | | | 2019 | Visit | | [address] | | | | | | [address] | | | | | | [place] [address] | | | | | | [phone] | | | | | | | | +--------+ + + + + documented as of this encounter Visit Diagnoses Not on filedocumented in this encounter"
--- OUTSIDE RECORDS SUMMARY | ~2020-05-25 | XMS | Encounter Summary ---
Demographics + + + | Address | [address] | | | [place] [address] | + + + | Home Phone [...] [place] | | | | | [address] | | + + + + + Care Team Providers + +------+ + | Care County Tax Assessor Name | Role | Phone | [...] + + | 05/01/ | Telephone | [facility] | Dora De La Torre | Medication Question | | 2020 | | CARDIOLOGY [place] | [address] | | | | | [address] | [address] | | | | | [address] | [place] [address] | | | | | [place] | [phone] | | | | | [address] | | | | | | [phone] | | | +--------+ + + + [...] [address] | | | | | | [place] [address] | | | | | | [phone] | | | | | | | | +--------+ + + + + | 11/05/ | Office | Cardiology | Dora De La Torre | | | 2020 | Visit | | [address] | | | | | | [address] | | | | | | [place] [address] | | | | | | [phone] | | | | | | | | +--------+ + + + + documented as of this encounter Visit Diagnoses Not on filedocumented in this encounter"
--- OUTSIDE RECORDS SUMMARY | ~2020-05-25 | XMS | Clinical Summary ---
Demographics + + + | Address | [address] | | | [place] [address] | + + + | Home Phone [...] [place] | | | | | [address] | | + + + + + Care Team Providers + +------+ + | Care Director Of Finance Name | Role | Phone | + +------+ + PCP | Unavailable | + +------+ + Source Comments EDWARD is fully live on both [facility] Ambulatory and [facility] InPatient.[facility] Allergies Not on [...] | MED[employer] | xxxxxxxxxx | 02/22/20 | [phone] | [address] | [address] | | | RE A & | | 15-Pre | 1 | [address] | re | | | B | | sent | | [place] | | | | | | | | [address] | | + +--------+ +--------+ + +--------+ [...] Self | [birth year] | [address] | | | al/Fam | | 1955 | [phone] | [address] [place] | | | [place] | | | 5 (Home) | [address] | + +--------+ +--------+ + +"
--- OUTSIDE RECORDS SUMMARY | ~2020-05-25 | XMS | Encounter Summary ---
Demographics + + + | Address | [address] | | | [place] [address] | + + + | Home Phone [...] [place] | | | | | [address] | | + + + + + Care Team Providers + +------+ + | Care Gum Scoring Machine Operator Name | Role | Phone | + +------+ + | Basim Bolanos MD | PCP | | + +------+ + Encounter Details +--------+ + + + + | Date | Type | Department | Care Team | Description | +--------+ + + + + | 01/24/ | Abstract | [facility] [place] | [facility] | | | 2012 | | GASTROENTEROLOGY | FORT[place]O Thomas [address] | | | | | [address] [place] | [address] | | | | | [address] [place], [place] | [place], [place] | | | | | [address] | [address] | | | | | [phone] | | | +--------+ + + + [...] | | | | | [place] [address] | | | | | | [phone] | | | | | | | | +--------+ + + + + | 08/28/ | Office | Cardiology | Dora De La Torre | | | 2019 | Visit | | [address] | | | | | | [address] | | | | | | [place] [address] | | | | | | [phone] | | | | | | | | +--------+ + + + + documented as of this encounter Visit Diagnoses Not on filedocumented in this encounter"
--- OUTSIDE RECORDS SUMMARY | ~2020-05-25 | XMS | Clinical Summary ---
Demographics + + + | Address | [address] | | | [place] [address] | + + + | Home Phone [...] [place] | | | | | [address] | | + + + + + Care Team Providers + +------+ + | Care Hospice Massage Therapist Name | Role | Phone | + +------+ + PCP | Unavailable | + +------+ + Source Comments EDWARD is fully live on both [facility] Ambulatory and [facility] InPatient.[facility] Allergies Not on [...] | | t Plan | ID | chrsi | | | | | | / | | Dates | | | | | | Group | | | | | | + +--------+ +--------+ + +--------+ | MEDICARE | [employer] | xxxxxxxxxx | 02/22/20 | [phone] | [address] | [address] | | | RE A & | | 15-Pre | 1 | [address] | re | | | B | | sent | | [place] | | | | | | | | [address] | | + +--------+ +--------+ + +--------+ [...] Self | [birth year] | | [address] | | | al/Fam | | 1955 | [phone] | [address] [place] | | | [place] | | | 5 (Home) | [address] | + +--------+ +--------+ + +"
--- OUTSIDE RECORDS SUMMARY | ~2020-05-25 | XMS | Encounter Summary ---
Demographics + + + | Address | [address] | | | [place] [address] | + + + | Home Phone [...] [place], [place] | | | | | [address] | | + + + + + Care Team Providers + +------+ + | Care News Library Director Name | Role | Phone | + +------+ + PCP | Unavailable | + +------+ + Encounter Details +--------+ + + + + | Date | Type | Department | Care Team | Description | +--------+ + + + + | 04/16/ | Hospital | [facility] | | | | 1997 | Encounter | MED CTR XRAY [address] | | | | | | [place] | | | | | | [place] [address] | | | | | | [phone] | | | +--------+ + + + [...] | | | | | [place] [address] | | | | | | [phone] | | | | | | | | +--------+ + + + + | 08/28/ | Office | Cardiology | Dora De La Torre | | | 2019 | Visit | | [address] | | | | | | [address] | | | | | | [place] [address] | | | | | | [phone] | | | | | | | | +--------+ + + + + documented as of this encounter Visit Diagnoses Not on filedocumented in this encounter"
--- OUTSIDE RECORDS SUMMARY | ~2020-05-25 | XMS | Encounter Summary ---
Demographics + + + | Address | [address] | | | [place] [address] | + + + | Home Phone [...] [place] | | | | | [address] | | + + + + + [...] + + | 06/12/ | Hospital | [facility] | Frandy Teresa, | No Show | | 2014 | Encounter | MED CTR | DO [address] | | | | | ELECTRODIAGNOSTICS | [place] [place], [place] | | | | | [address] [place] | [address] | | | | | [place] [address] | | | | | | [phone] | | | +--------+ + + + [...] | | | | | [place] [address] | | | | | | [phone] | | | | | | | | +--------+ + + + + | 08/28/ | Office | Cardiology | Dora De La Torre | | | 2020 | Visit | | [address] | | | | | | [address] | | | | | | [place] [address] | | | | | | [phone] | | | | | | | | +--------+ + + + + documented as of this encounter Visit Diagnoses Not on filedocumented in this encounter"
--- OUTSIDE RECORDS SUMMARY | ~2020-05-25 | XMS | Encounter Summary ---
Demographics + + + | Address | [address] | | | [place] [address] | + + + | Home Phone [...] [place] | | | | | [address] | | + + + + + Care Team Providers + +------+ + | Care Anesthesiologist And Critical Care Name | Role | Phone [...] | | | spondylolist | | [address] | | | | | hesis | | [place], | | | | | Spinal | | [place] [address] | | | | | stenosis, | | Phone: | | | | | lumbar | | [phone] | | | | | region, | | Fax: | | | | | without | | [phone] | | | | | neurogenic | [...] | 07/02/ | Hospital | [facility] | Frandy Teresa, | Degenerative disc | | 2013 - | Encounter | [facility] | DO [address] | disease, lumbar | | | | [address] | [place] [address] [place] | (Primary Dx); | | 07/05/ | | [place] [address] | [phone] | Diabetes mellitus | | 2013 | | [phone] | | ([facility]); Disturbance | | | | | [...] might be different fro m the original. [facility] DISCHARGE SUMMARY PATIENT NAME: Cindy [...] Stable for discharge to SNF. DISPOSITION: SNF ([facility]) DISCHARGE MEDICATIONS Medications prior to admission [...] Take 15 mg by mouth nightl y. Honorav[place]-3 Fatty Acids (FISH OIL CONCENTRATE) 1000 MG [...] Lynn PA-C - 07/04/2014 7:43 AM PDT [facility] PROGRESS NOTE Pt. Name/Age/: Cindy Arndt 58 y.o. 1955 Med. Record Number: [id number] Date of admission: 07/02/2014 Subjective: The patient [...] home medications. D/C plan: Home tomorrow with [facility]. D/c mari drain and riley cath today. D/c managing member. Patient Active Problem List Diagnosis LUMBAR DISC [...] signed by: Chris Nicole, 07/04/2014 7:45 [facility] Chris Lynn PA-C - 07/03/2014 7:13 AM PDT . [facility] PROGRESS NOTE Pt. Name/Age/: Cindy Arndt 58 y.o. 1955 Med. Record Number: [id number] Date of admission: 07/02/2014 Subjective: The patient [...] Electronically signed by: Chris Nicole, 07/03/2014 7:13 [facility] on [place], KRIS - 07/03/2014 6:50 [...] signed by: Frandy Teresa DO, 07/02/2014 11:15 [facility] Frandy Teresa DO at 06/2014 11:15 AM PDTFrandy Teresa DO - 07/02/2014 11:15 AM [id number] [facility] [place], [place] [id number] FAX: NEUROSURGERY HISTORY AND PHYSICAL EXAMINATION CHIEF [...] Take 15 mg by mouth earnestine eldridge. Honorav[place]-3 Fatty Acids (FISH OIL CONCENTRATE) 1000 MG [...] apparent deficits with short or terminal gauger memory. CRANIAL NERVES: II: Acuity [...] Intrinsics 5 5 Ulnar Intrinsics 5 5 Electro Mechanical Technologist Strength 5 5 Hip Flexion 5 4* [...] Procedure Notes [facility] SC[facility] - 07/12/2014 12:00 AM PDT 14 1:45 [facility] - 07/04/2014 12:00 AM PDT [facility] - 07/02/2014 12:00 AM PDT documented in this encounter Miscellaneous Notes Plan of Care - ONBASE SCAN [facility] - 07/12/2014 12:00 AM PDT iscellaneous - [facility] - 07/12/2014 12:00 AM PDTElec tronically signed by Mariah Schulte at 07/12/2014 1:45 PM PDTMiscellaneous - [facility] SC[facility] - 07/12/2014 12:00 AM PDT i scellaneous - BRUCE SCAN [facility] - 07/12/2014 12:00 AM PDT [...] TBD) Equipment Recommendations: tub bench;hand held shower head;carpenter/labor;comfort height toilet ( pt. has all necessary [...] might be different fro m the original. DETENTION FACILITY TRANSFER ORDERS Patient Name: Cindy Arndt Patient : 1955 Gender: female Date of Admission: 07/02/2014 Date of Discharge: 07/05/2014 Admitting Provider: Frandy Teresa DO Discharging Provider: Chris Nicole PA-C Consultants: none PCP: Natalee Andersen [facility] transferring to: [facility] Provider after transfer: PCP and Dr. Frandy Teresa CODE STATUS: [x] Attempt CPR [] Do not resuscitate If patient is pulseless and not breathing, RN/PROSTHODONTIST/OWNER may pronounce . Advanced Directives included: [] [...] for this patient. Diet: [] As tolerated CASH VAN SALESPERSON may upgrade or downgrade diet as condition Indicates. [x] RN may downgrade diet as indicated. Type: [] Continue current diet of: Diet and Supplements Diet DIET CONSISTENT CARBOHYDRATE Number of Occurrences: -1 Days [] Other: Consistency/Precautions: [] Whole [] Thin Liquids [] Cut-up [] Marquette Thick [] Advanced Chopped [] Honey Thickened [] Chopped [] Advanced Ground [] 1:1 feedings [] Ground/Pureed [] Other: Tube Feedings: [] PEG [] GT [] JT [] NGT [] Formula type: (Slurry Man may change/substitute if indicated). [] Continuous Rate: [...] & Management for: ____same as above [] CASH VAN SALESPERSON Evaluation &Management for: [] Other: Wound/Skin Care: [...] Take 15 mg by mouth ni linda. Honorav[place]-3 Fatty Acids (FISH OIL CONCENTRATE) 1000 MG [...] (pediatric) IChris PA-C, certify that post hospital custodial care is medically nec essary on a continuing basis for any of the conditions for which he/she received care during this hospitalization. Check one: [x] Skilled [] Intermediate Additional Orders/Instructions: Physician's signature:__Chris Nicole PA-C 07/05/2014 13:18 [facility] JMMIKarsten [facility] USE ONLY: [] [...] tolerate progressive walking and doing stairs [facility] stay due to multiple pain c/o. Attempted to see pt. 1145, however had just rec eived pain medication and requested PT return, SPL 9/10. At 1205 pt contacted PT for assist OOB due to left LE spasms and need for position change. Sitting at EOB on arrival, SETTLEMENT WORKER pres ent. Pt. donned LSO brace, stood [...] of endurance. When patient is walking in [facility] with a regular FWW she has to stop frequently and states she feels very weak, like sh e may fall. Patient lives alone. Outpatient prescriptions are filled at [facility] in [facility]. Electronically signed by: Franca Narvaez RN 07/05/2014 10:43 lan of Adilene Layne Rivers - 07/05/2014 10:39 AM PDTFaxed referral to Gabriela Stout and Lidia Tran. [place] : [id number] and [place]: [id number] Electronically signed by: Layne Collado 07/05/2014 10:40 [...] TBD) Equipment Recommendations: tub bench;hand held shower head;carpenter/labor;comfort height toilet ( pt. has all necessary equipment) Planned Interventions: ADL retraining;transfer training Patient Status/Goals Reflects last filed data of patient status; may be from multiple contributors. Grooming: Status: did not occur today Assist: Utilizes: STG: Status: New Goal:modified independent LTG: Status: Goal: UE Dressing: Status: SBA Assist: Utilizes: STG: Status: Goal: LTG: Status: Goal: LE Dressing: Status: SBA Utilizes: carpenter/labor STG: Status: New Goal: modified independent LTG: [...] bed mobil ity. Pt has been using STARCH FACTORY LABORER and pain pills during the night. Zofran [...] by herself in a small apartment in [place]. Patient states she has her apartment set [...] [facility] come from [facility] [place]. She states the Said she might benefit [facility] upon discharge. She would like me to contact [facility] to giv e them a heads up. I called and spoke to Summer at [facility] , told her patients PCP i s [...] Pt. resting in bed on arrival, used STARCH FACTORY LABORER x 2 during session. SPL 5/10. Pt. hoping to urinate porcelain enamel installer to straight cath. Sidelying to sit at [...] TBD) Equipment Recommendations: tub bench;hand held shower head;carpenter/labor;comfort height toilet ( pt. has all necessary [...] & Review . Outcome: Progressing Pt using STARCH FACTORY LABORER and PO pain pills, c/o numbness on [...] and on a continuous oximeter for her STARCH FACTORY LABORER. She was unable to do her IS because o f the medications. She has the IS at bedside with a goal of 2400. She did not require additi onal respiratory care throughout the evening. p Note - Frandy Teresa, - 07/02/2014 2:25 PM PDTDATE: 07/02/2014 SURGEON: Frandy Teresa MD. ACID TREATER: ZANE Oh PREOPERATIVE DIAGNOSES 1. Spondylolisthesis, L5-S1. [...] x 26 mm Capstone PEEK cage from [employer] was chosen. It was filled with Infus [...] Note Cindy Arndt 58 y.o. female 1955 [id number] Proc. Date 07/02/2014 Preop Dx Spondylolisthesis L5-S1 Postop Dx same Procedure Procedure(s):MIS L5-S1 TRANSFORAMINAL LUMBAR INTERBODY FUSION Anesthesia General Surgeon Frandy Teresa DO Hr Operations Advisor ZANE Oh EBL 100 mL Findings Findings consistent with scheduled procedure. No other abnormalities found. Complications none Specimens * No specimens in log * Drains Electronically signed by: Frandy Teresa DO 07/02/2014 14:22 [facility] documented in this en counter Plan [...] [address] | | | | | | [place] [address] | | | | | | [phone] | | | | | | | | +--------+ + + + + | 08/28/ | Office | Cardiology | Dora De La Torre | | | 2020 | Visit | | [address] | | | | | | [address] | | | | | | [place] [address] | | | | | | [phone] | | | | | | | [...] + | [facility] | [address] | [place] | [phone] | | [facility] | | [address] | | | - LABORATORY | | | | + + + + + | [facility] | [address] | [place] | | | [facility] | | [address] | | | - [...] + | [facility] | [address] | [place], [place] | [phone] | | [facility] | | [address] | | | - LABORATORY | | | | + + + + + | [facility] | [address] | [place], [place] | | | [facility] | | [address] | | | - [...] [address] | [place] | [phone] | | [facility] | | [address] | | | - LABORATORY | | | | + + + + + | [address] | [address] | [place], [place] | | | [facility] | | [address] | | | - [...] + | [facility] | [address] | [place] | [phone] | | [facility] | | [address] | | | - LABORATORY | | | | + + + + + | [facility] | [address] | [place], [place] | | | [facility] | | [address] | | | - LABORATORY | [...] [address] | [place] | [phone] | | [facility] | | [address] | | | - LABORATORY | | | | + + + + + | [address] | [address] | [place] | | | [facility] | | [address] | | | - [...] + | [facility] | [address] | [place] | [phone] | | [facility] | | [address] | | | - LABORATORY | | | | + + + + + | [facility] | [address] | [place], [place] | | | [facility] | | [address] | | | - LABORATORY | [...] [address] | [place] | [phone] | | [facility] | | [address] | | | - LABORATORY | | | | + + + + + | [address] | [address] | [place] | | | [facility] | | [address], [facility] | | | - LABORATORY [...] + | [facility] | [address] | [place], [place] | [phone] | | [facility] | | [address] | | | - LABORATORY | | | | + + + + + | [facility] | [address] | [place], [place] | | | [facility] | | [id number] [place] [address] | | | - LABORATORY | | [...] | | POC | | | [facility] | | [...] + | [address] [facility] | [address] | [place], [place] | [phone] | | [facility] | | [address] | | | - LABORATORY | | | | + + + + + | [address] | [address] | [place], [place] | | | [facility] | | [id number] [place] [address] | | | - LABORATORY | | [...] | of hardware for posterior fusion from [id number] S1 with interbody hardware at L5-S1. The [...] + | MISCELLANEOUS LAB | | | [phone] | + +---------+ + + | MISCELANIOUS LAB | | | [phone] | + +---------+ + + POC Glucose [...] + | [facility] | [address] | [place] | [phone] | | [facility] | | [address] | | | - LABORATORY | | | | + + + + + | [facility] | [address] | [place] | | | [facility] | | [address], [facility] | | | - LABORATORY [...] + | [facility] | [address] | [place], [place] | [phone] | | [facility] | | [address] | | | - LABORATORY | | | | + + + + + | [facility] | [address] | [place], [place] | | | [facility] | | [address] | | | - [...] [address] | [place] | [phone] | | [facility] | | [address] | | | - LABORATORY | | | | + + + + + | [address] | [address] | [place] | | | [facility] | | [address] | | | - [...] + | [facility] [facility] | [address] | [place], [place] | [phone] | | [facility] | | [address] | | | - LABORATORY | | | | + + + + + | [facility] | [address] | [place], [place] | | | [facility] | | [address] | | | - [...] [address] | [place] | [phone] | | [facility] | | [address] | | | - LABORATORY | | | | + + + + + | [facility] | [address] | [place] | | | [facility] | | [address] | | | - [...] [facility] | | [address] | | | - BLOOD BANK | [...] + +---------+ +---+---+---+ | morphine 5 mg/mL STARCH FACTORY LABORER syringe | New Bag | 07/02/20 | [...] | | | | Dose(mg): 0, Starting STARCH FACTORY LABORER | | | | | | | Dose(mg): 1, Incremental Increase | | | | | | | STARCH FACTORY LABORER Dose(mg): 0.5, Maximum STARCH FACTORY LABORER | | | | | | | [...]
--- OUTSIDE RECORDS SUMMARY | ~2020-05-25 | XMS | Encounter Summary ---
Demographics + + + | Address | [address] | | | [place] [address] | + + + | Home Phone [...] [place], [place] | | | | | [address] | | + + + + + Care Team Providers + +------+ + | Care Laborer Shipyard Name | Role | Phone | + +------+ + PCP | Unavailable | + +------+ + Encounter Details +--------+ + + + + | Date | Type | Department | Care Team | Description | +--------+ + + + + | 01/25/ | Hospital | [facility] | | | | 2002 | Encounter | MED CTR XRAY [address] | | | [address] | | | | | | [place] [address] | | | | | | [phone] | | | +--------+ + + + [...] | | | | | [place] [address] | | | | | | [phone] | | | | | | | | +--------+ + + + + | 08/28/ | Office | Cardiology | Dora De La Torre | | | 2019 | Visit | | [address] | | | | | | [address] | | | | | | [place] [address] | | | | | | [phone] | | | | | | | | +--------+ + + + + documented as of this encounter Visit Diagnoses Not on filedocumented in this encounter"
--- OUTSIDE RECORDS SUMMARY | ~2020-05-25 | XMS | Encounter Summary ---
Demographics + + + | Address | [address] | | | [place] [address] | + + + | Home Phone [...] [place] | | | | | [address] | | + + + + + Care Team Providers + +------+ + | Care Cnc Milling Machinist Name | Role | Phone | [...] + + | 08/08/ | Telephone | [facility] | Ashley Chávez | Other (Questions | | 2019 | | CARDIOLOGY [place], Editor Index | about coverage. ) | | | | [address] | | | | | | [place] | | | | | | [address] | | | | | | [phone] | | | +--------+ + + + [...] Miscellaneous Notes Telephone Encounter - Ashley Chávez, Editor Index - 08/08/2019 10:58 AM Seferino foster called and wanted to know if her monitor needed to be AUTHORIZED. I asked Danelle and she said that because she had medicare part A and B, it does not need kayode or auth. I told this information to the patient, patient stated understanding. JKASSIE:SHRIMPER-AAMA. [facility] umphilipp in this encounter Plan of Treatment [...] [address] | | | | | | [place] [address] | | | | | | [phone] | | | | | | | | +--------+ + + + + | 08/28/ | Office | Cardiology | Dora D eLa Torre | | | 2019 | Visit | | [address] | | | | | | [address] | | | | | | [place] [address] | | | | | | [phone] | | | | | | | | +--------+ + + + + documented as of this encounter Visit Diagnoses Not on filedocumented in this encounter"
--- OUTSIDE RECORDS SUMMARY | ~2020-05-25 | XMS | Encounter Summary ---
Demographics + + + | Address | [address] | | | [place] [address] | + + + | Home Phone [...] [place] | | | | | [address] | | + + + + + Care Team Providers + +------+ + | Care Catering Attendant Name | Role | Phone | [...] | Radiology | History [facility] | [facility] | | | | | atrial | [address] | [address] | | | | | fibrillation | [address] | [place] | | | | | History of | [address] | [place], [place] | | | | | stroke | [place], [place] | [address] | | | | | Sinus | [address] | Phone: | | | | | tachycardia | Phone: | [phone] | | | | | by | [phone] | Fax: | | | | | electrocardi | Fax: | [phone] | | | | | ogram New | [phone] | | | | | | onset [...] + + | 01/09/ | Office | [facility] | Roxannmiguel ángelDora | History of atrial | | 2020 | Visit | CARDIOLOGY [place] | [address] | fibrillation | | | | [address] | [address] | (Primary Dx); Benign | | | | [address] | [place] [address] | essential HTN; | | | | [place], [place] | [phone] | History of | | | | [address] | | hypothyroidism; | | | | [phone] | | Stress | | | | [...] an urgent Echo to be done at [place] to follow up on new left bundle [...] of fatigue and shortness of breath. 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 She reports after she lost 160 pounds with a gastric sleeve that she was retested for sle ep apnea 2 years ago, and told the results negative, but has not had CPAP for 3 years She has previously seen Dr. Garland in [place], and different sleep provider in [facility] when lived over there. She reports [...] thirst or hunger. Psychiatric/Behavioral: Bipolar/Schizophrenia. Tx'd by [employer] Vaccines: Current on flu vaccine: 2019 Current on pneumonia vaccine:PPSV 23 05/29/2013 Habits/Social : Denies history of smoking. Denies EtOH use. Denies recreational or illici t drug use. Exercises sporadically. Lives in [place] . Outpatient Medications Prior to Visit Medication [...] by mouth nightly. Blood Glucose Monitoring Suppl ([facility] VERIO FLEX SYSTEM) w/Device KIT by Does [...] nonspecific ST-T wave abnormality rate 82 bpm, NY 176 ms, QRS 80 ms, QTC 446 ms tracing personally reviewed by me EK12/17/2019: Sinus tachycardia, nonspecific ST wave abnormalities, rate 105 bpm, NY 196 ms, QRS 74 ms, QTC 430 ms, tracing personally reviewed by me, and compared to EKG performed in February 2019, rate is less well-controlled EK01/10/2020 (metoprolol XL 50 mg twice daily. Normal sinus rhythm, new left bundle bran ch block Rate 74 bpm, NY 204 ms, QRS 138 ms, QTC 488 ms, tracing personally reviewed by me and Dr. Peterson. compared to EKG performed in November, new left bundle branch block, lead III has lower voltage QRS also in aVL and aVF, and improved voltage to anterior leads and rate i s better controlled. LABS Labs: 12/26/2018: ( [facility])CMP: Sodium 139, potassium 4.2, chloride 99, BUN 10, creatinine 0. 7, BNP 28. CBC: WBC 7.8, hemoglobin 14.3, hematocrit 42.7, platelets 214 Labs: 09/28/2019:( [facility]) CBC: WBC 7.8, hemoglobin 14.9, hematocrit 43.8, platelets 221. C MP: Sodium 132, potassium 4.2, chloride 95, AST 76, ALT 76, alk phos 134 Labs: 10/11/2019:( [facility]) CBC: WBC 6.7, RBC 4.97, hemoglobin 15.2, hematocrit 44.7, platel ets 200. CMP: Glucose 385, BUN 7, creatinine 0.62, GFR 97, sodium 131, potassium 4.1, chlor kelby 95, albumin 4.3, total bilirubin 0.6, AST 75, ALT 73, alk phos 144. Thyroid: TSH 4.27 Labs: 10/12/2020:( [facility]) CBC: WBC 7, RBC 4.93, [...] and reviewed her EKG results with her equipment service engineer, Dr. Peterson, who is in the cli vickie today, and the plan is to get an updated echo to evaluate her for any new wall motion ab normalities. If she has any wall motion abnormalities, she will need to have further evalua tion for ischemic heart disease in [place] such as a stress test or angiogram I reviewed her EKG with her, and discussed this plan with her. The Echo will be ordered on an urgent basis, is currently a restriction on all nonurgent testing at [facility] . She was agreeable to this plan [...] continuity of care purp ose Preston BUCIO [facility] Card[facility] 01/10/2020 docume nted in this [...] [address] | | | | | | [place] [address] | | | | | | [phone] | | | | | | | | +--------+ + + + + | 08/28/ | Office | Cardiology | Dora De La Torre | | | 2019 | Visit | | [address] | | | | | | [address] | | | | | | [place] [address] | | | | | | [phone] | | | | | | | [...] | | | | | | [place]enia ([id number]) on | | | | | | [...]
--- OUTSIDE RECORDS SUMMARY | ~2020-05-25 | XMS | Encounter Summary ---
Demographics + + + | Address | [address] | | | [place] [address] | + + + | Home Phone [...] [place], [place] | | | | | [address] | | + + + + + Care Team Providers + +------+ + | Care Mandrel Cleaner Name | Role | Phone | + +------+ + PCP | Unavailable | + +------+ + Encounter Details +--------+ + + + + | Date | Type | Department | Care Team | Description | +--------+ + + + + | 09/24/ | Hospital | [facility] | | | | 1993 | Encounter | MED CTR LABORATORY | | | | | | [address] | | | | | | [place] | | | | | | [address] | | | | | | [phone] | | | +--------+ + + + [...] | | | | | [place] [address] | | | | | | [phone] | | | | | | | | +--------+ + + + + | 08/28/ | Office | Cardiology | Dora De La Torre | | | 2020 | Visit | | [address] | | | | | | [address] | | | | | | [place] [address] | | | | | | [phone] | | | | | | | | +--------+ + + + + documented as of this encounter Visit Diagnoses Not on filedocumented in this encounter"
--- OUTSIDE RECORDS SUMMARY | ~2020-05-25 | XMS | Encounter Summary ---
Demographics + + + | Address | [address] | | | [place] [address] [...] [place] | | | | | [address] | | + + + + + Care Team Providers + +------+ + | Care Crankshaft Balancer Name | Role | Phone | [...] | | | | | | [place], | | | | | | [place] [address] | | | | | | [phone] | | | +--------+ + + + [...] | | + +---------+ + + | [facility] DEPARTMENT OF | | | | | RADIOLOGY | | | | + +---------+ + + documented in this encounter Visit Diagnoses Not on filedocumented in this encounter"
--- OUTSIDE RECORDS SUMMARY | ~2020-05-25 | XMS | Encounter Summary ---
Demographics + + + | Address | [address] | | | [place] [address] | + + + | Home Phone [...] [place], [place] | | | | | [address] | | + + + + + Care Team Providers + +------+ + | Care Airplane Engineer Name | Role | Phone | + +------+ + PCP | Unavailable | + +------+ + Encounter Details +--------+ + + + + | Date | Type | Department | Care Team | Description | +--------+ + + + + | 07/17/ | Hospital | [facility] | | | | 1997 | Encounter | MED CTR EMERGENCY | | | | | | [address] | | | | | | [place] | | | | | | [address] | | | | | | [phone] | | | +--------+ + + + [...] | | | | | [place] [address] | | | | | | [phone] | | | | | | | | +--------+ + + + + | 08/28/ | Office | Cardiology | Dora De La Torre | | | 2020 | Visit | | [address] Mendez [address] | | | | | | [address] | | | | | | [place] [address] | | | | | | [phone] | | | | | | | | +--------+ + + + + documented as of this encounter Visit Diagnoses Not on filedocumented in this encounter"
--- OUTSIDE RECORDS SUMMARY | ~2020-05-25 | XMS | Encounter Summary ---
Demographics + + + | Address | [address] | | | [place] [address] | + + + | Home Phone [...] [place] | | | | | [address] | | + + + + + Care Team Providers + +------+ + | Care History Teacher Name | Role | Phone | + +------+ + | Basim Bolanos MD | PCP | | + +------+ + Encounter Details +--------+ + + + + | Date | Type | Department | Care Team | Description | +--------+ + + + + | 03/30/ | Hospital | [facility] | Tyrese Neely MD | | | 2012 | Encounter | MED CTR MP INTRA OP | [address], [place] | | | | | [address] | [address] [place], [place] | | | | | [place], [place] | [address] | | | | | [address] | | | | | | [phone] | | | +--------+ + + + [...] + + + +---------+ + + | Charlton-3 Fatty | Take 1,000 mg by | [...] Neely MD - 03/30/2013 12:10 [place] [address] Patient Name: CINDY ARNDT Provider: Tyrese Neely MD Unit #: [id number] Location: [facility] : 1955 Patient Name: Cindy Arndt Gender: F Procedure Date: 03/30/2013 12:10 PM Date of : 1955 Age: 57 Admit Type: Outpatient Room: Endo Room 1 Note Status: Finalized Attending MD: Tyrese Neely MD Procedure: Upper GI endoscopy Indications: Epigastric abdominal pain Providers: Tyrese Neely MD, Vanesa Anne RN, Yesenia Downing, Design Project Manager, Guillermo Ortiz MD (Anesthesia Staff) Referring MD: [...] physician, the nurse, the anesthesiologist and the infrastructure technician. The procedure was verified in the [...] [address] | | | | | | [place] [address] | | | | | | [phone] | | | | | | | | +--------+ + + + + | 08/28/ | Office | Cardiology | Isacc De La Torre | | 2019 | Visit | | Vanessa, CAMERA CONTROL OPERATOR [address] | | | | | | [address] | | | | | | [place] [address] | | | | | | [phone] | | | | | | | [...] + | [facility] | [address] | [place], [place] | [phone] | | [facility] | | [address] | | | - LABORATORY | | | | + + + + + | [facility] | [address] | [place], [place] | | | [facility] | | [address] | | | - LABORATORY [...] + | [facility] | [address] | [place] | [phone] | | [facility] | | [address] | | | - LABORATORY | | | | + + + + + | [facility] | [address] | [place], [place] | | | [facility] | | [id number] [place] [address] | | | - LABORATORY | | | | + + + + + documented in this encounter Visit Diagnoses Not on filedocumented in this encounter"
--- OUTSIDE RECORDS SUMMARY | ~2020-05-25 | XMS | Encounter Summary ---
Demographics + + + | Address | [address] | | | [place] [address] | + + + | Home Phone [...] [place] | | | | | [address] | | + + + + + Care Team Providers + +------+ + | Care Geodetic Technician Name | Role | Phone | [...] [address] | [address] [place], [place] | Hypothyroidism; | | | | [place] | [address] | GERD; BACK PAIN, | | | | [address] | | LUMBAR, WITH | | | | [phone] | | RADICULOPATHY; | | | | [...] | | | | | [place] [address] | | | | | | [phone] | | | | | | | | +--------+ + + + + | 08/28/ | Office | Cardiology | Dora De La Torre | | | 2019 | Visit | | [address] | | | | | | [address] | | | | | | [place] [address] | | | | | | [phone] | | | | | | | [...]
--- OUTSIDE RECORDS SUMMARY | ~2020-05-25 | XMS | Encounter Summary ---
Demographics + + + | Address | [address] | | | [place] [address] | + + + | Home Phone [...] [place], [place] | | | | | [address] | | + + + + + Care Team Providers + +------+ + | Care Water Filterer Helper Name | Role | Phone | + +------+ + PCP | Unavailable | + +------+ + Encounter Details +--------+ + + + + | Date | Type | Department | Care Team | Description | +--------+ + + + + | 02/02/ | Hospital | [facility] | Serafin Bautista | | | 2011 | Encounter | MED CTR XRAY [address] | T, [address] | | | | | [place] | [place] | | | | | [place] [address] | [address] | | | | | [phone] | | | +--------+ + + + [...] [address] | | | | | | [place] [address] | | | | | | [phone] | | | | | | | | +--------+ + + + + | 08/28/ | Office | Cardiology | Dora De La Torre | | | 2019 | Visit | | [address] | | | | | | [address] | | | | | | [place] [address] | | | | | | [phone] | | | | | | | [...] At | + + + | [facility] | [place] | | [address] [facility] | [place] [facility] | | PROCEDURE: EPIDURAL STEROID | [...] Transcribed Date/Time: | | | 02/03/2012 18:45 Relief Pilot: <Electronically Signed | | | by Serafin Bautista MD> 02/14/12 0916 | | + + + + + | Procedure Note | + + | Juan, Rad Conversion - 11/30/2013 5:06 PM [facility] | | Diagnostic Imaging Department | | [address] [facility] | | | | | | [...] | Transcribed Date/Time: 02/03/2012 18:45 | | Relief Pilot: | | <Electronically Signed by Serafin Bautista [...]
--- OUTSIDE RECORDS SUMMARY | ~2020-05-25 | XMS | Encounter Summary ---
Demographics + + + | Address | [address] | | | [place] [address] | + + + | Home Phone [...] [place], [place] | | | | | [address] | | + + + + + Care Team Providers + +------+ + | Care Procurement Coordinator Name | Role | Phone | + +------+ + PCP | Unavailable | + +------+ + Encounter Details +--------+ + + + + | Date | Type | Department | Care Team | Description | +--------+ + + + + | 09/10/ | Hospital | [facility] | | | | 1992 | Encounter | MED CTR LABORATORY | | | | | | [address] | | | | | | [place] | | | | | | [address] | | | | | | [phone] | | | +--------+ + + + [...] | | | | | [place] [address] | | | | | | [phone] | | | | | | | | +--------+ + + + + | 08/28/ | Office | Cardiology | Dora De La Torre | | | 2020 | Visit | | [address] | | | | | | [address] | | | | | | [place] [address] | | | | | | [phone] | | | | | | | | +--------+ + + + + documented as of this encounter Visit Diagnoses Not on filedocumented in this encounter"
--- OUTSIDE RECORDS SUMMARY | ~2020-05-25 | XMS | Encounter Summary ---
Demographics + + + | Address | [address] | | | [place] [address] | + + + | Home Phone [...] [place], [place] | | | | | [address] | | + + + + + Care Team Providers + +------+ + | Care System Development Engineer Name | Role | Phone | + +------+ + PCP | Unavailable | + +------+ + Encounter Details +--------+ + + + + | Date | Type | Department | Care Team | Description | +--------+ + + + + | 12/24/ | Hospital | [facility] | | | | 1998 | Encounter | MED CTR XRAY [address] | | | | | | [address] | | | | | | [place] [address] | | | | | | [phone] | | | +--------+ + + + [...] | | | | | [place] [address] | | | | | | [phone] | | | | | | | | +--------+ + + + + | 08/28/ | Office | Cardiology | Dora De La Torre | | | 2019 | Visit | | [address] | | | | | | [address] | | | | | | [place] [address] | | | | | | [phone] | | | | | | | | +--------+ + + + + documented as of this encounter Visit Diagnoses Not on filedocumented in this encounter"
--- OUTSIDE RECORDS SUMMARY | ~2020-05-25 | XMS | Encounter Summary ---
Demographics + + + | Address | [address] | | | [place] [address] | + + + | Home Phone [...] [place] | | | | | [address] | | + + + + + Care Team Providers + +------+ + | Care Priest Name | Role | Phone | + [...] + + | 02/27/ | Telephone | [facility] | Katharine Cardona PA-C | Appointment (New | | 2014 | | MEDICINE [address] | [address] [place] | Patient) | | | | [place], | [place] [address] | | | | | [place] [address] | [phone] | | | | | [phone] | | | +--------+ + + + [...] patients. Those patients are re ferred to [facility]. Cindy stated that would be fine with her. She stated she is 7 months post-back surgery per Dr. Teresa and only uses the hydrocodone and oxycodone occ asionally. She said she is trying to get off the oxycodone completely. Cindy said she saw Dr. Newman this morning to address her myositis issues. [facility] Appointment scheduled for 03-06-15 with Katharine DEGROOT. [...] [address] | | | | | | [place] [address] | | | | | | [phone] | | | | | | | | +--------+ + + + + | 08/28/ | Office | Cardiology | Dora De La Torre | | | 2019 | Visit | | [address] | | | | | | [address] | | | | | | [place] [address] | | | | | | [phone] | | | | | | | | +--------+ + + + + documented as of this encounter Visit Diagnoses Not on filedocumented in this encounter"
--- OUTSIDE RECORDS SUMMARY | ~2020-05-25 | XMS | Encounter Summary ---
Demographics + + + | Address | [address] | | | [place] [address] | + + + | Home Phone [...] [place] | | | | | [address] | | + + + + + Care Team Providers + +------+ + | Care Business Controller Name | Role | Phone | [...] + + | 08/28/ | Telephone | [facility] | Ashley Chávez | Other (Patient has | | 2018 | | CARDIOLOGY [place], Meter Reader | questions about | | | | [address] | | monitor. ) | | | | [place] | | | | | | [address] | | | | | | [phone] | | | +--------+ + + + [...] Miscellaneous Notes Telephone Encounter - Ashley Chávez, Meter Reader - 08/28/2019 8:32 AM Rory foster says [...] that if she chooses. Patient stated understanding. JPolloW:SAMPLE PATTERNMAKER-AAMA. [facility] umented in this encounter Plan of Treatment [...] [address] | | | | | | [place] [address] | | | | | | [phone] | | | | | | | | +--------+ + + + + | 08/28/ | Office | Cardiology | Dora De La Torre | | | 2020 | Visit | | [address] | | | | | | [address] | | | | | | [place] [address] | | | | | | [phone] | | | | | | | | +--------+ + + + + documented as of this encounter Visit Diagnoses Not on filedocumented in this encounter"
--- OUTSIDE RECORDS SUMMARY | ~2020-05-25 | XMS | Encounter Summary ---
Demographics + + + | Address | [address] | | | [place] [address] | + + + | Home Phone [...] [place] | | | | | [address] | | + + + + + Care Team Providers + +------+ + | Care It Security Specialist Name | Role | Phone | [...] | Frandy Simons DO | [address] | | | | | of skin | [address] | [place], | | | | | sensation | [address] | [place] | | | | | Arthrodesis | [place], [place] | [address] | | | | | status Left | [address] | Phone: | | | | | leg | Phone: | [phone] | | | | | weakness | [phone] | Fax: | | | | | Procedures | Fax: | [phone] | | | | | MRI Lumbar | [phone] | | | | | | Spine [...] | | | | | Disturbance | rFandy Simons DO | [address] | | | | | of skin | [address] | [place], | | | | | sensation | [address] | [place] | | | | | Arthrodesis | [place] | [address] | | | | | status Left | [address] | Phone: | | | | | leg | Phone: | [phone] | | | | | weakness | [phone] | Fax: | | | | | Procedures | Fax: | [phone] | | | | | MRI Lumbar | [phone] | | | | | | Spine wo | | | | | | | Contrast | | | +--------+--------+ + + + + Encounter Details +--------+ + + + + | Date | Type | Department | Care Team | Description | +--------+ + + + + | 08/19/ | Hospital | [facility] | Frandy Teresa, | Status post lumbar | | 2013 | Encounter | MED CTR MRI [address] | DO [address] | spinal fusion; Left | | | | [place], | [address] [place] | leg numbness; Left | | | | [place] [address] | [address] | leg weakness | | | | [phone] | | | +--------+ + + + [...] + + + +---------+ + + | Ambrose-3 Fatty | Take 1,000 mg by | [...] [address] | | | | | | [place] [address] | | | | | | [phone] | | | | | | | | +--------+ + + + + | 08/28/ | Office | Cardiology | Dora De La Torre | | | 2019 | Visit | | [address] | | | | | | [address] | | | | | | [place] [address] | | | | | | [phone] | | | | | | | [...] the round structure with high T1 and L1ycvlbk in the right L3 vertebral | | [...] + | MISCELLANEOUS LAB | | | [phone] | + +---------+ + + | MISCELANIOUS LAB | | | [phone] | + +---------+ + + documented in [...]
--- OUTSIDE RECORDS SUMMARY | ~2020-05-25 | XMS | Encounter Summary ---
Demographics + + + | Address | [address] | | | [place] [address] | + + + | Home Phone [...] [place] | | | | | [address] | | + + + + + Care Team Providers + +------+ + | Care Glue Bone Crusher Name | Role | Phone | + [...] | | | | | | [place] [address] | | | | | | [phone] | | | | | | | [...] in | | | | | | [place] with a | | | | | [...] | | | | | | Laboratory, [place], | | | | | | [place] [...] by | | | | | | xbwrjppwJcw-Mee-M: | | | | | | Increased [...] istryMHC-1: | | | | | | IsaazhvdUB37 stain | | | | | | [...] + + + | [facility] | [address] | [place] [address] | | | PATHOLOGY | [place] | | | + + + + + documented in this encounter Visit Diagnoses Not on filedocumented in this encounter
--- OUTSIDE RECORDS SUMMARY | ~2020-05-25 | XMS | Encounter Summary ---
Demographics + + + | Address | [address] | | | [place] [address] | + + + | Home Phone [...] [place] | | | | | [address] | | + + + + + Care Team Providers + +------+ + | Care Bonbon Dipper Name | Role | Phone | + +------+ + | Natalee Andersen NP | PCP | | + +------+ + Encounter Details +--------+ + + + + | Date | Type | Department | Care Team | Description | +--------+ + + + + | 07/25/ | Hospital | [facility] | Frandy Teresa, | Status post lumbar | | 2014 | Encounter | MED CTR XRAY [address] | DO [address] | spinal fusion | | | | [place] | [address] [place], [place] | | | | | [place] [address] | [address] | | | | | [phone] | | | +--------+ + + + [...] + + + +---------+ + + | [place]-3 Fatty | Take 1,000 mg by [...] | | | | | [place] [address] | | | | | | [phone] | | | | | | | | +--------+ + + + + | 08/28/ | Office | Cardiology | Dora De La Torre | | | 2020 | Visit | | [address] | | | | | | [address] | | | | | | [place] [address] | | | | | | [phone] | | | | | | | [...] + | MISCELLANEOUS LAB | | | [phone] | + +---------+ + + | MISCELANIOUS LAB | | | [phone] | + +---------+ + + documented in this encounter Visit Diagnoses + + | Diagnosis | + + | Status post lumbar spinal fusion Arthrodesis status | + + documented in this encounter"
--- OUTSIDE RECORDS SUMMARY | ~2020-05-25 | XMS | Encounter Summary ---
Demographics + + + | Address | [address] | | | [place] [address] | + + + | Home Phone [...] [place] | | | | | [address] | | + + + + + Care Team Providers + +------+ + | Care Soa Integration Developer Name | Role | Phone | + +------+ + | Natalee Andersen NP | PCP | | + +------+ + Encounter Details +--------+ + + + + | Date | Type | Department | Care Team | Description | +--------+ + + + + | 07/06/ | Hospital | [facility] | Latricia Feliciano | | | 2014 | Encounter | MED CTR ACUTE | D, PT [address] | | | | | PHYSICAL THERAPY | [place] | | | | | [address] | [address] | | | | | [place] [address] | | | | | | [phone] | | | +--------+ + + + [...] + + + +---------+ + + | [place]-3 Fatty | Take 1,000 mg by | [...] [address] | | | | | | [place] [address] | | | | | | [phone] | | | | | | | | +--------+ + + + + | 08/28/ | Office | Cardiology | Dora De La Torre | | | 2020 | Visit | | [address] | | | | | | [address] | | | | | | [place] [address] | | | | | | [phone] | | | | | | | | +--------+ + + + + documented as of this encounter Visit Diagnoses Not on filedocumented in this encounter"
--- OUTSIDE RECORDS SUMMARY | ~2020-05-25 | XMS | Encounter Summary ---
Demographics + + + | Address | [address] | | | [place] [address] | + + + | Home Phone [...] [place] | | | | | [address] | | + + + + + Care Team Providers + +------+ + | Care Bar Tender Name | Role | Phone | [...] | | | | | | | [address] | | | | | | | Phone: | | | | | | | [phone] | | | | | | | Fax: | | | | | | | [phone] | | +--------+--------+ + + + + [...] Sleep apnea; | | | | [address], | address | Stroke (HCC); | | | | [address] [place] | | Thyroid disease | | | | [place] [address] | | | | | | [phone] | | | +--------+---------+ + + + [...] supply of blood, brain tissue quickly dies. [id number] [employer]. [address] [place] [address]. All righ ts reserved. This information is not intended as a substitute for professional medical care. Always follow your healthcare professional's instructions. documented in this encounter Progress Notes Baudilio Newman MD - 02/27/2015 10:31 AM PDTFormatting of this note might be differen t from the original. Baudilio Newman MD [address] [place] [address], [address] [place] [address] Neurology Outpatient New Patient Note Referring Provider: [...] history. Notes from her recent hospitalization at [facility] were reviewed in detail. Ms. Arndt started feeling off in the evening of 02/01. She felt dizzy and laid down to slee p. Upon waking, she felt her right side was numb. She tried to get up to go to the bathroom and realized she was weak as well on the right. She was taken to [facility] where she was diagnosed with [...] systol ically. She was reevaluated in the [facility] ED for one such event and [...] . This specimen was characterized at [facility], but the report is not currently available [...] N/A; Surgeon: Frandy castellanos DO; Location: [facility] MAIN OR Current Medications: Outpatient Medications [...] tablet Take 15 mg by mouth nightly. [place]-3 Fatty Acids (FISH OIL CONCENTRATE) 1000 [...] BMI 46.04 kg /m2 Neck Circumference: 14" [place] Sleepiness Scale: 2 General: well developed and [...] Romberg test negative Radiographic Review: CTA from [facility] reviewed on iSITE. No significant stenoses seen [...] No results found for this basename: hba1c, bet5jag, ldl, ldldirect, ldlext, dldlex Lab Results Component [...] [address] | | | | | | [place] [address] | | | | | | [phone] | | | | | | | | +--------+ + + + + | 08/28/ | Office | Cardiology | Dora De La Torre | | | 2020 | Visit | | [address] | | | | | | [address] | | | | | | [place] [address] | | | | | | [phone] | | | | | | | [...]
--- OUTSIDE RECORDS SUMMARY | ~2020-05-25 | XMS | Encounter Summary ---
Demographics + + + | Address | [address] [facility] [address] | | | [place] [address] | + + + | Home Phone [...] [place] | | | | | [address] | | + + + + + Care Team Providers + +------+ + | Care Bread Wrapper Name | Role | Phone | [...] Rd | | | | | | [place], [place] | | | | | | [address] | | | +--------+ + + + [...]
--- OUTSIDE RECORDS SUMMARY | ~2020-05-25 | XMS | Encounter Summary ---
Demographics + + + | Address | [address] [facility] [address] | | | [place] [address] | + + + | Home Phone [...] [place] | | | | | [address] | | + + + + + Care Team Providers + +------+ + | Care Sanitation Worker Name | Role | Phone | [...] | | | | | | [place] [address] | | | | | | [phone] | | | | | | | [...] in | | | | | | [place] with a | | | | | [...] [facility] | [facility] | | | | | | Laboratory, [place], | | | | | | [place], delivered | | | | | | [...] by | | | | | | sfnpnffvDcy-Kyx-X: | | | | | | Increased [...] istryMHC-1: | | | | | | KfhnbzubJH01 stain | | | | | | [...] [facility] | [address] | [place] [address] | | | PATHOLOGY | [place] | | | + + + + + documented in this encounter Visit Diagnoses Not on filedocumented in this encounter
--- OUTSIDE RECORDS SUMMARY | ~2020-05-25 | XMS | Encounter Summary ---
Demographics + + + | Address | [address] | | | [place] [address] | + + + | Home Phone [...] [place], [place] | | | | | [address] | | + + + + + Care Team Providers + +------+ + | Care Subsurface Augmentee Operator Name | Role | Phone | [...] XRAY [address] | MD [address] | | | | | [place] | [place] | | | | | [place] [address] | [address] | | | | | [phone] | | | +--------+ + + + [...] + + + +---------+ + + | [place]-3 Fatty | Take 1,000 mg by | [...] [address] | | | | | | [place] [address] | | | | | | [phone] | | | | | | | | +--------+ + + + + | 08/28/ | Office | Cardiology | Dora De La Torre | | | 2019 | Visit | | [address] | | | | | | [address] | | | | | | [place] [address] | | | | | | [phone] | | | | | | | [...] | + + + | [facility] Diagnostic Imaging Department | [place] | | [address] | [facility] | | LUMBAR SPINE MR WITHOUT [...] Transcribed Date/Time: | | | 05/23/2012 16:55 Station Master: <Electronically Signed | | | by Adriano Anne MD> 05/23/12 2885 | | + + + + + | Procedure Note | + + | Juan, Rad Conversion - 11/30/2013 5:47 PM [facility] | | Diagnostic Imaging Department [address] [facility] | | LUMBAR SPINE MR WITHOUT [...] 05/23/2012 | | 16:55Transcriptionist: <Electronically Signed by Adriaon Anne MD> 05/23/12 | | 1725 | [...] 16:37 | |Transcribed Date/Time: 05/23/2012 16:55 | |Station Master: | |<Electronically Signed by Adriano Anne MD> 05/23/12 1725 | + + + +---------+ + + | Performing | Address | City/State/Zipcode | Phone Number | | Organization | | | | + +---------+ + + | [place] | | | | | [facility] | | | | + +---------+ + + documented in this encounter Visit Diagnoses Not on filedocumented in this encounter"
--- OUTSIDE RECORDS SUMMARY | ~2020-05-25 | XMS | Encounter Summary ---
Demographics + + + | Address | [address] | | | [place] [address] | + + + | Home Phone [...] [place] | | | | | [address] | | + + + + + Care Team Providers + +------+ + | Care Institute Scientist Name | Role | Phone | [...] + + | 09/10/ | Documentati | [facility] | Katharine Moncada, | Other (urgent | | 2019 | on | CARDIOLOGY [place] | Technologist | report) | | | | [address] | | | | | | [place] | | | | | | [address] | | | | | | [phone] | | | +--------+ + + + [...] | | | | | [place] [address] | | | | | | [phone] | | | | | | | | +--------+ + + + + | 08/28/ | Office | Cardiology | Dora De La Torre | | | 2020 | Visit | | [address] | | | | | | [address] | | | | | | [place] [address] | | | | | | [phone] | | | | | | | | +--------+ + + + + documented as of this encounter Visit Diagnoses Not on filedocumented in this encounter"
--- OUTSIDE RECORDS SUMMARY | ~2020-05-25 | XMS | Encounter Summary ---
Demographics + + + | Address | [address] | | | [place] [address] | + + + | Home Phone [...] [place], [place] | | | | | [address] | | + + + + + Care Team Providers + +------+ + | Care Cracking Still Operator Name | Role | Phone [...] [phone] | | | | | | [place], [place] | | | | | | [address] | | | | | | [phone] | | | +--------+ + + + [...] | | | | | [place] [address] | | | | | | [phone] | | | | | | | | +--------+ + + + + | 08/28/ | Office | Cardiology | Dora De La Torre | | | 2020 | Visit | | [address] Mendez [address] | | | | | | [address] | | | | | | [place] [address] | | | | | | [phone] | | | | | | | | +--------+ + + + + documented as of this encounter Visit Diagnoses Not on filedocumented in this encounter
--- OUTSIDE RECORDS SUMMARY | ~2020-05-25 | XMS | Encounter Summary ---
Demographics + + + | Address | [address] | | | [place] [address] | + + + | Home Phone [...] [place] | | | | | [address] | | + + + + + [...] + | 07/01/ | Telephone | [facility] | Frandy Teresa, | Other (Surgery ) | | 2013 | | NEUROSURGERY [address] | DO [address] | | | | | [address] | [address] [place], [place] | | | | | [place], [place] | [id number] | | | | | [address] | | | | | | [phone] | | | +--------+ + + + [...] [place] | | | | | | [place] [address] | | | | | | [phone] | | | | | | | | +--------+ + + + + | 08/28/ | Office | Cardiology | Dora De La Torre | | | 2019 | Visit | | [address] Mendez [address] | | | | | | [address] | | | | | | [place] [address] | | | | | | [phone] | | | | | | | | +--------+ + + + + documented as of this encounter Visit Diagnoses Not on filedocumented in this encounter"
--- OUTSIDE RECORDS SUMMARY | ~2020-05-25 | XMS | Encounter Summary ---
Demographics + + + | Address | [address] | | | [place] [address] | + + + | Home Phone [...] [place], [place] | | | | | [address] | | + + + + + Care Team Providers + +------+ + | Care Social Media Designer Name | Role | Phone | + +------+ + PCP | Unavailable | + +------+ + Encounter Details +--------+ + + + + | Date | Type | Department | Care Team | Description | +--------+ + + + + | 12/27/ | Hospital | [facility] | | | | 1995 | Encounter | MED CTR LABORATORY | | | | | | [address] | | | | | | [place] | | | | | | [address] | | | | | | [phone] | | | +--------+ + + + [...] | | | | | [place] [address] | | | | | | [phone] | | | | | | | | +--------+ + + + + | 08/28/ | Office | Cardiology | Dora De La Torre | | | 2020 | Visit | | [address] | | | | | | [address] | | | | | | [place] [address] | | | | | | [phone] | | | | | | | | +--------+ + + + + documented as of this encounter Visit Diagnoses Not on filedocumented in this encounter"
--- OUTSIDE RECORDS SUMMARY | ~2020-05-25 | XMS | Encounter Summary ---
Demographics + + + | Address | [address] | | | [place] [address] | + + + | Home Phone [...] [place] | | | | | [address] | | + + + + + Care Team Providers + +------+ + | Care Rn Bariatric Name | Role | Phone | + [...] | 03/06/ | Office | [facility] | Deon Gonzales | ROGERS (obstructive | | 2012 | Visit | SLEEP DISORDER [address] | MD [address] | sleep apnea) | | | | [address] [place] | [address] [place] | (Primary Dx); | | | | [place] [address] | [place] [address] | Sleepiness | | | | [phone] | [phone] | | | | | | | [...] differen t from the original. 03/06/13 1000 Martinez Sleepiness Scale Sitting and reading 3 Watching [...] by mouth Daily., Disp: , Rfl: ; [place]-3 Fatty Acids (FISH OIL CONCENTRATE) 1000 MG [...] is encounter Miscellaneous Notes M[facility] - 03/06/2013 12:00 AM PDT iscellaneous - [facility] - 03/06/2013 12:00 AM PDTEle ctronically [...] [address] | | | | | | [place] [address] | | | | | | [phone] | | | | | | | | +--------+ + + + + | 08/28/ | Office | Cardiology | Dora De La Torre | | | 2019 | Visit | | [address] | | | | | | [address] | | | | | | [place] [address] | | | | | | [phone] | | | | | | | | +--------+ + + + + documented as of this encounter Visit Diagnoses + + | Diagnosis | + + | ROGERS (obstructive sleep apnea) - Primary Obstructive sleep apnea (adult) (pediatric) | + + | Sleepiness Other alteration of consciousness | + + documented in this encounter"
--- OUTSIDE RECORDS SUMMARY | ~2020-05-25 | XMS | Encounter Summary ---
Demographics + + + | Address | [address] | | | [place] [address] | + + + | Home Phone [...] [place] | | | | | [address] | | + + + + + Care Team Providers + +------+ + | Care Manager Fitness Name | Role | Phone | + [...] [place] | | | | | | [address] | | | | | | [phone] | | | +--------+ + + + [...] | | | | | [place] [address] | | | | | | [phone] | | | | | | | | +--------+ + + + + | 08/28/ | Office | Cardiology | Dora De La Torre | | | 2020 | Visit | | [address] | | | | | | [address] | | | | | | [place] [address] | | | | | | [phone] | | | | | | | | +--------+ + + + + documented as of this encounter Visit Diagnoses Not on filedocumented in this encounter"
--- OUTSIDE RECORDS SUMMARY | ~2020-05-25 | XMS | Encounter Summary ---
Demographics + + + | Address | [address] | | | [place] [address] | + + + | Home Phone [...] [place], [place] | | | | | [address] | | + + + + + Care Team Providers + +------+ + | Care Operations Boardman Name | Role | Phone | + +------+ + PCP | Unavailable | + +------+ + Encounter Details +--------+ + + + + | Date | Type | Department | Care Team | Description | +--------+ + + + + | 07/17/ | Hospital | [facility] | | | | 1997 - | Encounter | MED CTR GENERIC PSY | | | | | | CONV DEPT [address] | | | | 07/25/ | | [address] [place], | | | | 1997 | | [place] [address] | | | | | | [phone] | | | +--------+ + + + [...] [address] | | | | | | [place] [address] | | | | | | [phone] | | | | | | | | +--------+ + + + + | 08/28/ | Office | Cardiology | Dora De La Torre | | | 2019 | Visit | | [address] | | | | | | [address] | | | | | | [place] [address] | | | | | | [phone] | | | | | | | | +--------+ + + + + documented as of this encounter Visit Diagnoses Not on filedocumented in this encounter"
--- OUTSIDE RECORDS SUMMARY | ~2020-05-25 | XMS | Encounter Summary ---
Demographics + + + | Address | [address] | | | [place] [address] | + + + | Home Phone [...] [place], [place] | | | | | [address] | | + + + + + Care Team Providers + +------+ + | Care Principal Software Architect Name | Role | Phone | [...] | | | | | | [address] [facility] | | | | | | [place], [place] | | | | | | [address] | | | | | | [phone] | | | +--------+ + + + [...] | | | | | [place] [address] | | | | | | [phone] | | | | | | | | +--------+ + + + + | 08/28/ | Office | Cardiology | Dora De La Torre | | | 2020 | Visit | | [address] | | | | | | [address] | | | | | | [place] [address] | | | | | | [phone] | | | | | | | | +--------+ + + + + documented as of this encounter Visit Diagnoses Not on filedocumented in this encounter"
--- OUTSIDE RECORDS SUMMARY | ~2020-05-25 | XMS | Encounter Summary ---
Demographics + + + | Address | [address] | | | [place] [address] | + + + | Home Phone [...] [place] | | | | | [address] | | + + + + + Care Team Providers + +------+ + | Care Railroad Supervisor Of Engines Name | Role | Phone | + [...] [address] | [address] [place], [place] | Anxiety; Anemia; | | | | [place], [place] | [address] | Irregular heartbeat; | | | | [address] | | Depression; | | | | [phone] | | Migraine; | | | | [...] | | | | | | [place] [address] | | | | | | [phone] | | | | | | | | +--------+ + + + + | 08/28/ | Office | Cardiology | Dora De La Torre | | | 2019 | Visit | | [address] M[address] | | | | | | [address] | | | | | | [place] [address] | | | | | | [phone] | | | | | | | [...]
--- OUTSIDE RECORDS SUMMARY | ~2020-05-25 | XMS | Encounter Summary ---
Demographics + + + | Address | [address] | | | [place] [address] | + + + | Home Phone [...] [place] | | | | | [address] | | + + + + + Care Team Providers + +------+ + | Care Head Char Filter Tank Tender Name | Role | Phone | + +------+ + | Thierry Fry MD | PCP | | + +------+ + Encounter Details +--------+ + + + + | Date | Type | Department | Care Team | Description | +--------+ + + + + | 03/06/ | Hospital | [facility] | Katharine Cardona PA-C | Essential | | 2015 | Encounter | MED CTR LABORATORY | [address] | hypertension | | | | [address] [place] | [place] [address] | | | | | [place], [place] | [phone] | | | | | [address] | | | | | | [phone] | | | +--------+ + + + [...] 0 | | | | (VITAMIN D-3) [address] | mouth Once a week. | | [...] + + + +---------+ + + | Bernalillo-3 Fatty | Take 1,000 mg by | 60 each | 5 | 03/09/20 | | | Acids (FISH OIL | mouth 2 times daily. | | | 15 | 9 | | CONCENTRATE) 1000 MG | | | | | | | CAPS | | | | | | + + + +---------+ + + | Bernal[place]-3 Fatty | Take 1,000 mg by | [...] F | | | | | | [place] [address] | | | | | | [phone] | | | | | | | | +--------+ + + + + | 08/28/ | Office | Cardiology | Isacc De La Torre | | | 2020 | Visit | | [address] | | | | | | [address] | | | | | | [place] [address] | | | | | | [phone] | | | | | | | [...] 12 | 7 - 18 mg/dL | [facility] | | | | | | [facility] | | | | | | MEDICAL | | | | | | CENTER - | | | | | | LABORATORY | | + + + + + + | Creatinine | 0.66 | 0.60 - 1.30 | [facility] | | | | | mg/dL | [facility] | | | | | | MEDICAL | | | | | | CENTER - | | | | | | LABORATORY | | + + + + + + | eGFR, | >60Comment: GLOMERULAR | >=60 | [facility] | | | non- | FILTRATION | mL/min/1.73m2 | [facility] | | | Thai | RATE,ESTIMATED | | MEDICAL | | | | mL/min/1.11o2Okrm than | | CENTER - | | [...] + | [address] [facility] | [address] | [place], [place] | [phone] | | [facility] | | [address] | | | - LABORATORY | | | | + + + + + documented in this encounter Visit Diagnoses + + | Diagnosis | + + | Essential hypertension Unspecified essential hypertension | + + documented in this encounter"
--- OUTSIDE RECORDS SUMMARY | ~2020-05-25 | XMS | Encounter Summary ---
Demographics + + + | Address | [address] | | | [place] [address] | + + + | Home Phone [...] [place] | | | | | [address] | | + + + + + Care Team Providers + +------+ + | Care Railroad Brakeman Name | Role | Phone | + [...] [place] | | | | | | [address] | | | | | | [phone] | | | +--------+ + + + [...] | | | | | [place] [address] | | | | | | [phone] | | | | | | | | +--------+ + + + + | 08/28/ | Office | Cardiology | Dora De La Torre | | | 2020 | Visit | | [address] | | | | | | [address] | | | | | | [place] [address] | | | | | | [phone] | | | | | | | | +--------+ + + + + documented as of this encounter Visit Diagnoses Not on filedocumented in this encounter"
--- OUTSIDE RECORDS SUMMARY | ~2020-05-25 | XMS | Encounter Summary ---
Demographics + + + | Address | [address] | | | [place] [address] | + + + | Home Phone [...] [place] | | | | | [address] | | + + + + + Care Team Providers + +------+ + | Care Art Model Name | Role | Phone | [...] + + | 08/13/ | Documentati | [facility] | Katharine Moncada, | Other (urgent | | 2019 | on | CARDIOLOGY [place] | Technologist | report) | | | | [address] | | | | | | [place] | | | | | | [address] | | | | | | [phone] | | | +--------+ + + + [...] | | | | | [place] [address] | | | | | | [phone] | | | | | | | | +--------+ + + + + | 08/28/ | Office | Cardiology | Dora De La Torre | | | 2020 | Visit | | [address] | | | | | | [address] | | | | | | [place] [address] | | | | | | [phone] | | | | | | | | +--------+ + + + + documented as of this encounter Visit Diagnoses Not on filedocumented in this encounter"
--- OUTSIDE RECORDS SUMMARY | ~2020-05-25 | XMS | Encounter Summary ---
Demographics + + + | Address | [address] | | | [place] [address] | + + + | Home Phone [...] [place] | | | | | [address] | | + + + + + Care Team Providers + +------+ + | Care Craft Center Director Name | Role | Phone | + +------+ + | Natalee Andersen NP | PCP | | + +------+ + Encounter Details +--------+---------+ + + + | Date | Type | Department | Care Team | Description | +--------+---------+ + + + | 06/25/ | Surgery | [facility] | Frandy Teresa, | Canceled | | 2013 | | MED CTR OR INTRA OP | DO [address] | PROCEDURE NOT | | | | [address] | [address] [place], [place] | PERFORMED | | | | [place], [place] | [address] | | | | | [address] | | | | | | [phone] | | | +--------+---------+ + + + [...] this en counter H&P Notes ONBRUCE ABREU [facility] - 06/21/2014 12:00 AM PDT [...] MD at 06/26/2014 8:05 AM PDTONBRUCE ABREU [facility] - 06/26 12:00 AM PDT NBRUCE ZAMORA N [facility] - 06/26/2014 12:00 AM PDT NBASE SCAN [facility] - 06/12/2014 12:00 AM PDTElectronically signed by Mariah Schulte at 06/12 7:30 AM [facility] - 06/11/2014 12:00 AM PDT documented in this encounter Miscellaneous Notes Miscellaneous - ONBASE SCAN [facility] - 06/26/2014 12:00 AM PDT [...] stenosis, lumbar region, without neurogenic claudication ). Senior Clinical Data Coordinator visit is in response to an electronic spiritual care consult request. Patient wa s resting comfortably in bed; she was attended by her mom and dad - both sate nearby and see med very attentive and supportive. Cindy is Orthodoxy, attends [employer], and is strong in her rangel. She is excited about taking care of her back problem and fe els very secure in Dr. Teresa's care. She welcomed prayer, and expressed appreciation for th visit. Follow up with regular visits, emotional and spiritual support. iscellaneo us - ONBASE SCAN [facility] - 06/25/2014 12:00 AM PDTElectronically [...] [address] | | | | | | [place] [address] | | | | | | [phone] | | | | | | | | +--------+ + + + + | 08/28/ | Office | Cardiology | Dora De La Torre | | | 2019 | Visit | | [address] M[address] | | | | | | [address] | | | | | | [place] [address] | | | | | | [phone] | | | | | | | [...] mL/min/1.73m2 | [facility] | | | [place] Citizen | RATE,ESTIMATED | | MEDICAL | | | | mL/min/1.13f9Gzxi than | | CENTER - | | [...] + | [facility] | [address] | [place], [place] | [phone] | | [facility] | | [address] | | | - LABORATORY | | | | + + + + + | [facility] | [address] | [place], [place] | | | [facility] | | [address] [place] [address] | | | - LABORATORY | | [...] + | [facility] | [address] | [place] | [phone] | | [facility] | | [address] | | | - LABORATORY | | | | + + + + + | [facility] [facility] | [address] | [place] | | | [facility] | | [address], [facility] | | | [...] [address] | [place] | [phone] | | [facility] | | [address] | | | - LABORATORY | | | | + + + + + | [address] | [address] | [place] | | | [facility] | | [address], [facility] | | | [...] | [facility] | | [address] | | | - BLOOD BANK | [...] + | [facility] | [address] | [place], [place] | [phone] | | [facility] | | [address] | | | - LABORATORY | | | | + + + + + | [facility] [facility] | [address] | [place], [place] | | | [facility] | | [id number] | | | - [...]
--- OUTSIDE RECORDS SUMMARY | ~2020-05-25 | XMS | Encounter Summary ---
Demographics + + + | Address | [address] | | | [place] [address] | + + + | Home Phone [...] [place], [place] | | | | | [address] | | + + + + + Care Team Providers + +------+ + | Care Call Worker Person Name | Role | Phone | + +------+ + PCP | Unavailable | + +------+ + Encounter Details +--------+ + + + + | Date | Type | Department | Care Team | Description | +--------+ + + + + | 05/25/ | Hospital | [facility] | | | | 1991 | Encounter | MED CTR LABORATORY | | | | | | [address] | | | | | | [place] | | | | | | [address] | | | | | | [phone] | | | +--------+ + + + [...] | | | | | [place] [address] | | | | | | [phone] | | | | | | | | +--------+ + + + + | 08/28/ | Office | Cardiology | Dora De La Torre | | | 2020 | Visit | | [address] | | | | | | [address] | | | | | | [place] [address] | | | | | | [phone] | | | | | | | | +--------+ + + + + documented as of this encounter Visit Diagnoses Not on filedocumented in this encounter"
--- OUTSIDE RECORDS SUMMARY | ~2020-05-25 | XMS | Encounter Summary ---
Demographics + + + | Address | [address] | | | [place] [address] | + + + | Home Phone [...] [place] | | | | | [address] | | + + + + + Care Team Providers + +------+ + | Care Binder Caser Name | Role | Phone | [...] Closed | | Radiology | Diagnoses | [place], | | | | | | Thoracic or | Natalee L, | | | | | | lumbosacral | REC[address] | | | | | | neuritis or | [address] | | | | | | | [address] | | | | | | radiculitis, | [place], | | | | | | unspecified | [place] [address] | | | | | | | Phone: | | | | | | Degeneration | [phone] | | | | | | of lumbar | Fax: | | | | | | or | [phone] | | | | | | lumbosacral [...] + + | 03/11/ | Hospital | [facility] | Natalee Andersen | Thoracic or | | 2013 | Encounter | MED CTR MRI [address] | L, RECORD TE[address] | lumbosacral neuritis | | | | [place], | [address] | or radiculitis, | | | | [place] [address] | [place] [address] | unspecified; | | | | [phone] | [phone] | Degeneration of | | | | [...] + + + +---------+ + + | Douglass-3 Fatty | Take 1,000 mg by | [...] encounter Miscellaneous Notes Miscellaneous - ONBASE SCAN [facility] - 03/20/2014 12:00 AM PDT documented [...] [address] | | | | | | [place] [address] | | | | | | [phone] | | | | | | | | +--------+ + + + + | 08/28/ | Office | Cardiology | Dora De La Torre | | | 2019 | Visit | | [address] | | | | | | [address] | | | | | | [place] [address] | | | | | | [phone] | | | | | | | [...] + | MISCELLANEOUS LAB | | | [phone] | + +---------+ + + | MISCELANIOUS LAB | | | [phone] | + +---------+ + + documented in this encounter Visit Diagnoses + + | Diagnosis | + + | Thoracic or lumbosacral neuritis or radiculitis, unspecified | + + | Degeneration of lumbar or lumbosacral intervertebral disc | + + documented in this encounter"
--- OUTSIDE RECORDS SUMMARY | ~2020-05-25 | XMS | Encounter Summary ---
Demographics + + + | Address | [address] | | | [place] [address] | + + + | Home Phone [...] [place] | | | | | [address] | | + + + + + Care Team Providers + +------+ + | Care Process Safety Engineering Technologist Name | Role | Phone | [...] | Transcriptions | + + | Interface, Metal Miner Blasting In - 10/24/2006 3:09 AM PST | | [facility] | | Road [place], [place] [address] [place] | | [facility] Center[facility] RECORDMed [...]
--- OUTSIDE RECORDS SUMMARY | ~2020-05-25 | XMS | Clinical Summary ---
Demographics + + + | Address | [address] | | | [place] [address] | + + + | Home Phone [...] [place] | | | | | [address] | | + + + + + [...] | | | | e | | ([employer] VERIO FLEX | | | | [...] Other (Cancel | 2019 | | | CAROLINE Mendez | appointment) | +--------+ + + + + | 05/08/ | Telephone | Cardiology | Dora De La Torre | Testing | 2019 | | | CAROLINE Mendez | | +--------+ + + + + | 05/01/ | Telephone | Cardiology | Dora De La Torre | Medication Question | 2019 | | | CAROLINE Mendez | | +--------+ + + + + | 04/24/ | Office | Cardiology | Dora De La Torre | Left bundle branch | | 2020 | Visit | | CAROLINE Mendez | block (Primary Dx); | | | | | | Paroxysmal A-fib | | | | | | ([facility]); Mild | [...] EMERGENCY); | | | | | | History [...] | | | | | [place] [address] | | | | | | [phone] | | | | | | | | +--------+ + + + + | 08/28/ | Office | Cardiology | Dora De La Torre | | | 2019 | Visit | | CAROLINE Mendez [address] | | | | | | [address] | | | | | | [place] [address] | | | | | | [phone] | | | | | | | [...] | [employer] - | | 04/02/ | [id number] | | 5ccImplanted: Qty: 1 on | | Spine | MEDT | | 2019 | | | 07/02/2014 by Frandy Teresa | | Lumbar | | | | /[id number] | | A, DO at [facility] | | | | | | 6-020 | | [facility] | | | | | | / | + +------+--------+ +--------+--------+--------+ | Graft Infuse Bone Kit Xxs - | | N/A: | SOFAMOR | | 01/21/ | [id number] | | [id number]: Qty: 1 on | | Spine | DANEK - DIV | | 2014 | 0 / | | 07/02/2014 by Frandy Teresa | | Lumbar | [employer] | | | /[id number] | | A, DO at [facility] | | | - SFDK | | | 06AAH | | [facility] | | | | | | | + +------+--------+ +--------+--------+--------+ | Imp Spn Spcr Cpstn 8x26mm - | | N/A: | SOFAMOR | | 01/11/ | [id number] | | [id number]: Qty: 1 on | | Spine | DANEK - DIV | | 2 | 6 / | | 07/02/2014 by Frandy Teresa | | Lumbar | [employer] | | | /[id number] | Pham Simons DO at [facility] | | | - SFDK | | | 928 | | [facility] | | | | | | | + +------+--------+ +--------+--------+--------+ | Set Scrw Ns G5 Brk Off Ti | | N/A: | SOFAMOR | | | [id number] | | 4.75 - [id number]: | | Spine | DANEK - DIV | | | 0 / / | | Qty: 4 on 07/02/2014 by | | Lumbar | [employer] | | | | | Frandy Teresa DO at [facility] | | | - SFDK | | | | | [facility] | | | [facility] | | | | | | | + +------+--------+ +--------+--------+--------+ | RodImplanted: Qty: 1 on | | N/A: | | | | [id number] | | 07/02/2014 by Frandy Teresa | | Spine | | | | 540 / | Pham Simons DO at [facility] | | Lumbar | | | | / | | [facility] | | | | | | | + +------+--------+ +--------+--------+--------+ | RodImplanted: Qty: 1 on | | N/A: | MEDTROL - | | | [id number] | | 07/02/2014 by Frandy Teresa | | Spine | MDTR | | | 545 / | | DO Ronak at [facility] | | Lumbar | | | | / | | [facility] | | | | | | | + +------+--------+ +--------+--------+--------+ | Screw 7.5x50mm Sextant - | | N/A: | [employer] - | | | [id number] | | [id number]: Qty: 1 on | | Spine | MEDT | | | [id number] | | 07/02/2014 by Frandy Teresa | | Lumbar | | | | / / | | DO Ronak at [facility] | | | | | | | | [facility] | | | | | | | + +------+--------+ +--------+--------+--------+ | Cannulated ScrewImplanted: | | N/A: | MEDTROL - | | | [id number] | | Qty: 1 on 07/02/2014 by | | Spine | MDTR | | | [id number] | | Frandy Teresa DO at [facility] | | Lumbar | | | | / / | | [facility] | | | | | | [facility] | | | | | | | + +------+--------+ +--------+--------+--------+ | Cannulated ScrewImplanted: | | N/A: | MEDTR[employer]IC - | | | [id number] | | Qty: 1 on 07/02/2014 by | | Spine | MEDT | | | [id number] | | Frandy Teresa DO at [facility] | | Lumbar | | | | / / | | [facility] | | | | | | | [...] | | | | | DESIREE DONNELLY (18[birth year]) on | | | | | | [...] +--------+ +---------+--------+ | MEDICARE | MEDICA | [id number] | 02/22/20 | [phone] | | Medica | | | RE | | 09-Pre | 5 | | re | | | PART A | | sent | | | | | | AND B | | | | | | + +--------+ +--------+ +---------+--------+ | MEDICARE | MEDICA | [id number] | 02/22/20 | [phone] | | Medica [...] [place] | | | 1 (Home) | [address] | + +--------+ +--------+ + + | Cindy Arndt | Person | Self | [birth year] | [address] | | | al/Fam | | 1954 | [phone] | [address] [place], [place] | | | [place] | | | 1 (Home) | [address] | + +--------+ +--------+ + + Advance Directives + + + + + | Type | Date Recorded | Patient | Explanation | | | | Head Correction Officer | | + + + + + | Power of | | | | | Plane Tender | | | | + + [...]
--- OUTSIDE RECORDS SUMMARY | ~2020-05-25 | XMS | Encounter Summary ---
Demographics + + + | Address | [address] | | | [place] [address] | + + + | Home Phone [...] [place] | | | | | [address] | | + + + + + Care Team Providers + +------+ + | Care Assembler Utility Buildings Name | Role | Phone | + [...] + + | 12/17/ | Office | [facility] | Dora De La Torre | History of atrial | | 2020 | Visit | CARDIOLOGY [place] | CAROLINE Mendez [address] | fibrillation; Benign | | | | [address] | [address] | essential HTN; | | | | [address] | [place] [address] | History of | | | | [place], [place] | [phone] | hypothyroidism; | | | | [address] | | Stress | | | | [phone] | | hyperglycemia; | | | | | | History of sleep | | | | | | apnea; History of | | | | | | stroke; Obesity, | | | | | | Class III, BMI | | | | | | 40-49.9 (morbid | | | | | | obesity) ([facility]); Mild | | | | | | [...] of fatigue and shortness of breath. Her JID1ZB2 VASC score is 4 (stroke, HTN, gender) , and Dr. Peterson did not anticoagulate he r due to low incidence of atrial fib. Her current and previous testing and procedures are detailed below. She was seen in the emergency room on October 11, 2019 at [facility] and presented wi th paranoia feeling that [...] 405 and [facility], and she was to be started on Abilify. She was seen again in the emergency room on October 19 and , [id number] for sim ilar complaints with increased delusions, [...] She has previously seen Dr. Garland in [place], and different provider in [place] when lived over there. She reports she [...] thirst or hunger. Psychiatric/Behavioral: Bipolar/Schizophrenia. Tx'd by [facility] Vaccines: Current on flu vaccine: 2019 Current on pneumonia vaccine:PPSV 23 05/29/2013 Habits/Social : Denies history of smoking. Denies EtOH use. Denies recreational or illici t drug use. Exercises sporadically. Lives in [place] . Outpatient Medications Prior to Visit Medication [...] Take by mouth. Blood Glucose Monitoring Suppl ([employer] VERIO FLEX SYSTEM) w/Device KIT by Does not ap ply route. budesonide-formoterol (SYMBICORT) 160-4.5 mcg/puff inhaler Inhale 2 puffs into the lung s 2 (two) times daily. calcium carbonate antacid (TUMS ULTRA 1000) 1000 MG CHEW Chew and swallow 1,000 mg 4 ti mes daily as needed. Cholecalciferol (VITAMIN D-3) 79042 units CAPS Take 50,000 Units by mouth [...] chest discomfort, patient unable to walk on [email or web address]. Resting EKG normal sinus rhythm, arrhythmias ventricular [...] nonspecific ST-T wave abnormality rate 82 bpm, OR 176 ms, QRS 80 ms, QTC 446 ms tracing personally reviewed by me EK12/17/2019: Sinus tachycardia, nonspecific ST wave abnormalities, rate 105 bpm, OR 196 ms, QRS 74 ms, QTC 430 ms, tracing personally reviewed by me, and compared to EKG performed in February 2019, rate is less well-controlled LABS Labs: 12/26/2018: ( [facility])CMP: Sodium 139, potassium 4.2, chloride 99, BUN 10, creatinine 0. 7, BNP 28. CBC: WBC 7.8, hemoglobin 14.3, hematocrit 42.7, platelets 214 Labs: 09/28/2019:( [facility]) CBC: WBC 7.8, hemoglobin 14.9, hematocrit 43.8, platelets 221. C MP: Sodium 132, potassium 4.2, chloride 95, AST 76, ALT 76, alk phos 134 Labs: 10/11/2019:( [facility]) CBC: WBC 6.7, RBC 4.97, hemoglobin 15.2, hematocrit 44.7, platel ets 200. CMP: Glucose 385, BUN 7, creatinine 0.62, GFR 97, sodium 131, potassium 4.1, chlor kelby 95, albumin 4.3, total bilirubin 0.6, AST 75, ALT 73, alk phos 144. Thyroid: TSH 4.27 Labs: 10/12/2020:( [facility]) CBC: WBC 7, RBC 4.93, hemoglobin 14.7, hematocrit 44.1, platele ts 186 normal UA CMP: Glucose 381, BUN 6, creatinine 0.63, GFR 95, sodium 133, potassium 3.8 , chloride 97, albumin 4.3, total bili 0.6, AST 62, ALT 75, alk phos 145 thyroid: TSH 3.07 Labs: 10/20/2019:( [facility]) CBC: WBC 7.1, RBC [...] Preston BUCIO [facility] Cardiology 12/17/2019 docume nted in this [...] [address] | | | | | | [place] [address] | | | | | | [phone] | | | | | | | | +--------+ + + + + | 08/28/ | Office | Cardiology | Britt Dora | | | 2019 | Visit | | CAROLINE Mendez [address] | | | | | | [address] | | | | | | [place] [address] | | | | | | [phone] | | | | | | | [...] | | | | | | Yesenia ([id number]) on | | | | | | [...]
--- OUTSIDE RECORDS SUMMARY | ~2020-05-25 | XMS | Encounter Summary ---
Demographics + + + | Address | [address] | | | [place] [address] | + + + | Home Phone [...] [place] | | | | | [address] | | + + + + + Care Team Providers + +------+ + | Care Developer Advisor Name | Role | Phone | [...] | SLEEP DISORDER [address] | [address] | | | | | [place] | [place] | | | | | [place] [address] | [address] | | | | | [phone] | | | +--------+ + + + [...] last seen in [facility] on 04/30/2015. He did not [...] PA-C eleph one Encounter - Gail Cadet, Instrumentation And Controls Designer - 07/15/2016 8:37 AM PDTCalled to resched ule patient's no show appointment unable to contact all numbers are disconnected. Electronic ally signed by Gail Cadet Instrumentation And Controls Designer at 07/15/2016 8:37 AM PDTdocumented in this [...] [address] | | | | | | [place] [address] | | | | | | [phone] | | | | | | | | +--------+ + + + + | 08/28/ | Office | Cardiology | Dora De La Torre | | | 2019 | Visit | | CAROLINE Mendez [address] | | | | | | [address] | | | | | | [place] [address] | | | | | | [phone] | | | | | | | | +--------+ + + + + documented as of this encounter Visit Diagnoses Not on filedocumented in this encounter"
--- OUTSIDE RECORDS SUMMARY | ~2020-05-25 | XMS | Encounter Summary ---
Demographics + + + | Address | [address] | | | [place] [address] | + + + | Home Phone [...] [place], [place] | | | | | [address] | | + + + + + Care Team Providers + +------+ + | Care Swatch Cutter Name | Role | Phone | + +------+ + PCP | Unavailable | + +------+ + Encounter Details +--------+ + + + + | Date | Type | Department | Care Team | Description | +--------+ + + + + | 09/23/ | Hospital | [facility] | | | | 1994 | Encounter | MED CTR LABORATORY | | | | | | [address] | | | | | | [place] | | | | | | [address] | | | | | | [phone] | | | +--------+ + + + [...] | | | | | [place] [address] | | | | | | [phone] | | | | | | | | +--------+ + + + + | 08/28/ | Office | Cardiology | Dora De La Torre | | | 2020 | Visit | | CAROLINE Mendez [address] | | | | | | [address] | | | | | | [place] [address] | | | | | | [phone] | | | | | | | | +--------+ + + + + documented as of this encounter Visit Diagnoses Not on filedocumented in this encounter"
--- OUTSIDE RECORDS SUMMARY | ~2020-05-25 | XMS | Encounter Summary ---
Demographics + + + | Address | [address] | | | [place] [address] | + + + | Home Phone [...] [place], [place] | | | | | [address] | | + + + + + Care Team Providers + +------+ + | Care Tube Builder Airplane Name | Role | Phone | + [...] [place] | | | | | | [address] | | | | | | [phone] | | | +--------+ + + + [...] | | 2019 | visit | | CAROLIEN Mendez [address] | | | | | | [address] | | | | | | [place] [address] | | | | | | [phone] | | | | | | | | +--------+ + + + + | 08/28/ | Office | Cardiology | Dora De La Torre | | | 2020 | Visit | | CAROLINE Mendez [address] | | | | | | [address] | | | | | | [place] [address] | | | | | | [phone] | | | | | | | | +--------+ + + + + documented as of this encounter Visit Diagnoses Not on filedocumented in this encounter"
--- OUTSIDE RECORDS SUMMARY | ~2020-05-25 | XMS | Encounter Summary ---
Demographics + + + | Address | [address] | | | [place] [address] | + + + | Home Phone [...] [place] | | | | | [address] | | + + + + + Care Team Providers + +------+ + | Care Business Services Director Name | Role | Phone | + +------+ + | Natalee Andersen NP | PCP | | + +------+ + Encounter Details +--------+ + + + + | Date | Type | Department | Care Team | Description | +--------+ + + + + | 06/25/ | Hospital | [facility] | Frandy Teresa, | Acquired | | 2014 | Encounter | MED CTR XRAY [address] | DO [address] | spondylolisthesis | | | | [place] | [address] [place], [place] | | | | | [place] [address] | [address] | | | | | [phone] | | | +--------+ + + + [...] + + + +---------+ + + | Westfall-3 Fatty | Take 1,000 mg by | [...] | | | | | [place] [address] | | | | | | [phone] | | | | | | | | +--------+ + + + + | 08/28/ | Office | Cardiology | Dora De La Torre | | | 2019 | Visit | | CAROLINE Mendez [address] | | | | | | [address] | | | | | | [place] [address] | | | | | | [phone] | | | | | | | | +--------+ + + + + documented as of this encounter Visit Diagnoses + + | Diagnosis | + + | Acquired spondylolisthesis | + + documented in this encounter"
--- OUTSIDE RECORDS SUMMARY | ~2020-05-25 | XMS | Encounter Summary ---
Demographics + + + | Address | [address] | | | [place] [address] | + + + | Home Phone [...] [place] | | | | | [address] | | + + + + + Care Team Providers + +------+ + | Care Health Care Manager Name | Role | Phone [...] [address] | | | | | [address] [place], [place] | [place] | | | | | [address] | [address] | | | | | [phone] | | | +--------+ + + + [...] | | | | | [place] [address] | | | | | | [phone] | | | | | | | | +--------+ + + + + | 08/28/ | Office | Cardiology | Dora De La Torre | | | 2020 | Visit | | CAROLINE Mendez [address] | | | | | | [address] | | | | | | [place] [address] | | | | | | [phone] | | | | | | | | +--------+ + + + + documented as of this encounter Visit Diagnoses Not on filedocumented in this encounter"
--- OUTSIDE RECORDS SUMMARY | ~2020-05-25 | XMS | Encounter Summary ---
Demographics + + + | Address | [address] | | | [place] [address] | + + + | Home Phone [...] [place] | | | | | [address] | | + + + + + Care Team Providers + +------+ + | Care Teacher Drama Name | Role | Phone | + [...] + + | 09/19/ | Telephone | [facility] | Ashley Chávez | Other (Patient | | 2018 | | CARDIOLOGY [place], Auto Air Conditioning Installer | calling to be seen | | | | [address] | | mirella. ) | | | | [place] | | | | | | [address] | | | | | | [phone] | | | +--------+ + + + [...] Miscellaneous Notes Telephone Encounter - Ashley Chávez Auto Air Conditioning Installer - 09/19/2019 10:41 AM PSTCall m cierra to patient to advise of Dr. Peterson's notes. Patient stated understanding. Patient asked why she couldn't be seen sooner, and I reminded her that we offered her a monae ner appointment that she turned down. Patient said thank you and hung up. CLAYTONW:MANGO. el ephone Encounter - Ashley Chávez Auto Air Conditioning Installer - 09/19/2019 10:40 AM PST Dora De La Torre, CAROLINE Peterson DO; Ashley Chávez Auto Air Conditioning Installer So just an FYI: we offered her appointment today at 3 pm but she turned it down, and said she would keep scheduled appt. el ephone Encounter - Ashley Chávez Auto Air Conditioning Installer - 09/19/2019 10:38 AM PST----- Mess age [...] she needs to be seen by a assistant sales center manager. I have asked Lizeth to call [...] help her pulse? Please advise. Thank you! [facility] rocky in this encounter Plan [...] [address] | | | | | | [place] [address] | | | | | | [phone] | | | | | | | | +--------+ + + + + | 08/28/ | Office | Cardiology | Dora De La Torre | | | 2020 | Visit | | CAROLINE Mendez [address] | | | | | | [address] | | | | | | [place] [address] | | | | | | [phone] | | | | | | | | +--------+ + + + + documented as of this encounter Visit Diagnoses Not on filedocumented in this encounter"
--- OUTSIDE RECORDS SUMMARY | ~2020-05-25 | XMS | Encounter Summary ---
Demographics + + + | Address | [address] | | | [place] [address] | + + + | Home Phone [...] [place], [place] | | | | | [address] | | + + + + + Care Team Providers + +------+ + | Care Data Technician Name | Role | Phone | + +------+ + PCP | Unavailable | + +------+ + Encounter Details +--------+ + + + + | Date | Type | Department | Care Team | Description | +--------+ + + + + | 02/22/ | Hospital | [facility] | | | | 1996 - | Encounter | MED CTR GENERIC PSY | | | | | | CONV DEPT [address] | | | | 02/26/ | | [address], | | | | 1996 | | [place] [address] | | | | | | [phone] | | | +--------+ + + + [...] [address] | | | | | | [place] [address] | | | | | | [phone] | | | | | | | | +--------+ + + + + | 08/28/ | Office | Cardiology | Dora De La Torre | | | 2019 | Visit | | CAROLINE Mendez [address] | | | | | | [address] | | | | | | [place] [address] | | | | | | [phone] | | | | | | | | +--------+ + + + + documented as of this encounter Visit Diagnoses Not on filedocumented in this encounter"
--- OUTSIDE RECORDS SUMMARY | ~2020-05-25 | XMS | Encounter Summary ---
Demographics + + + | Address | [address] | | | [place] [address] | + + + | Home Phone [...] [place] | | | | | [address] | | + + + + + Care Team Providers + +------+ + | Care Collar Tailor Name | Role | Phone | + [...] | Telephone | [facility] [place] | [facility], | [facility] | | 2012 | | GASTROENTEROLOGY | [place] [address] | | | | | [address] | [address] | | | | | [address] [place], [place] | [place], [place] | | | | | [address] | [address] | | | | | [phone] | | | +--------+ + + + [...] [address] | | | | | | [place] [address] | | | | | | [phone] | | | | | | | | +--------+ + + + + | 08/28/ | Office | Cardiology | Dora De La Torre | | | 2019 | Visit | | CAROLINE Mendez [address] | | | | | | [address] | | | | | | [place] [address] | | | | | | [phone] | | | | | | | | +--------+ + + + + documented as of this encounter Visit Diagnoses Not on filedocumented in this encounter"
--- OUTSIDE RECORDS SUMMARY | ~2020-05-25 | XMS | Encounter Summary ---
Demographics + + + | Address | [address] | | | [place] [address] | + + + | Home Phone [...] [place] | | | | | [address] | | + + + + + Care Team Providers + +------+ + | Care Regulatory And Compliance Technician Name | Role | Phone | [...] + + | 04/30/ | Office | [facility] | Russell Alfaro PA | ROGERS on CPAP (Primary | | 2015 | Visit | SLEEP DISORDER [address] | [address] | Dx) | | | | [address] | [place] | | | | | [place] [address] | [address] | | | | | [phone] | | | +--------+---------+ + + + [...] encounter Progress Notes Gail Cadet, Master of [employer] - 04/30/2015 11:12 AM PDTFormatting of this note might be khoi rivas from the original. 04/30/15 1100 [place] Depression Inventory-II Depression Score 9 - Minimal depression Insomnia Severity Index Insomnia Severity Index 13 [place] Sleepiness Scale Sitting and reading 3 Watching [...] appro priate paperwork. Thirty minutes were spent mcso-hp-ukut, with the majority of time spent i [...] [address] | | | | | | [place] [address] | | | | | | [phone] | | | | | | | | +--------+ + + + + | 08/28/ | Office | Cardiology | Dora De La Torre | | | 2020 | Visit | | CAROLINE Mendez [address] | | | | | | [address] | | | | | | [place] [address] | | | | | | [phone] | | | | | | | | +--------+ + + + + documented as of this encounter Visit Diagnoses + + | Diagnosis | + + | ROGERS on CPAP - Primary Obstructive sleep apnea (adult) (pediatric) | + + documented in this encounter"
--- OUTSIDE RECORDS SUMMARY | ~2020-05-25 | XMS | Encounter Summary ---
Demographics + + + | Address | [address] | | | [place] [address] | + + + | Home Phone [...] [place], [place] | | | | | [address] | | + + + + + Care Team Providers + +------+ + | Care Temp Recruiter Name | Role | Phone | + +------+ + PCP | Unavailable | + +------+ + Encounter Details +--------+ + + + + | Date | Type | Department | Care Team | Description | +--------+ + + + + | 02/22/ | Hospital | [facility] | | | | 1996 | Encounter | MED CTR EMERGENCY | | | | | | [address] | | | | | | [place] | | | | | | [address] | | | | | | [phone] | | | +--------+ + + + [...] | | | | | [place] [address] | | | | | | [phone] | | | | | | | | +--------+ + + + + | 08/28/ | Office | Cardiology | Dora De La Torre | | | 2020 | Visit | | [address] Mendez [address] | | | | | | [address] | | | | | | [place] [address] | | | | | | [phone] | | | | | | | | +--------+ + + + + documented as of this encounter Visit Diagnoses Not on filedocumented in this encounter"
--- OUTSIDE RECORDS SUMMARY | ~2020-05-25 | XMS | Encounter Summary ---
Demographics + + + | Address | [address] | | | [place] [address] | + + + | Home Phone [...] [place] | | | | | [address] | | + + + + + Care Team Providers + +------+ + | Care Waitangi Tribunal Member Name | Role | Phone | + +------+ + | Adriano Patrick MD | PCP | | + +------+ + Encounter Details +--------+ + + + + | Date | Type | Department | Care Team | Description | +--------+ + + + + | 06/10/ | Abstract | [facility] [place] [facility] | Thierry Fry | | | 2014 | | MEDICINE [facility] RICH | MD Lisa [address] | [address] [place], | [place] [place], [place] | | | | | [place] [address] | [address] | | | | | [phone] | | | +--------+ + + + [...] [address] | | | | | | [phone] | | | | | | | | +--------+ + + + + | 08/28/ | Office | Cardiology | Dora De La Torre | | | 2019 | Visit | | [address]INE Mendez [address] | | | | | | [address] | | | | | | [place] [address] | | | | | | [phone] | | | | | | | [...]
--- OUTSIDE RECORDS SUMMARY | 2020-05-25 12:34 | XMS ---
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 Security Day Spa Manager Events No recent Security Events currently on file CRITERIA MET - 6 ED Visits in 6 Months - [facility] - Has Care Guidelines - PDMP - [facility] - 2 Visits in 30 Days CARE PROVIDERS WAYNE CAMARGO Internal Medicine 09/07/2019-Current PHONE: [phone] SMITH DOMINGUEZ Counselor: Mental Health 05/21/2020-Current PHONE: [phone] Kenny Palafox [facility] Current PHONE: [phone] ANGELICA MELVIN Internal Medicine: Pulmonary Disease 05/21/2020-Current PHONE: Unknown Jose Ag [facility] 01/31/2019-Current PHONE: [phone] Guidelines Source: [facility] [place] Guidelines Date: 03/13/2019 Care Coordination: Mental health services are being provided by [facility].\T\nbsp; Please contact [facility] with mental health concerns.\T\nbsp; [place]: [phone]\T\nbsp; [place]: [phone]. Care History Medical/Surgical 05/21/2020 [facility] Patient\T\#39;s therapist, Ashley Lopez, BEATER LEAD at [facility] has been advised of her overuse of the ED and discussed with her. Also, she has put in a Referral to have a CHW at [facility] work with her .\T\nbsp; Patient was just seen by Walk In provider, Ashley Sharp, yesterday, 05/20/2020 for skin issue.\T\ nbsp; Next PCP visit on 05/29/2020. 04/29/2020 [facility] Patient requested new PCP, not happy with Dr. Camargo.\T\nbsp; Patient aware of [facility] appointment 04/30/2020. 04/22/2020 [facility] Patient had follow up scheduled for 04/25/[address] Camargo,but was canceled by doctor.\T\nbsp; Left voice mail for patient to reschedule follow up visit. E.D. VISIT COUNT (12 MO.) [address] [facility] TOTAL 24 NOTE: Visits indicate total known visits. ED/UCC VISIT TRACKING (12 MO.) 05/25/2020 12:32 [facility] [place] TYPE: Emergency COMPLAINT: - CHEST PAIN, DIZZINESS 05/23/2020 09:03 [facility] [place] TYPE: Emergency COMPLAINT: - CHEST PAIN 05/22/2020 11:22 [facility] [place] TYPE: Emergency COMPLAINT: - CHEST PAIN, SOB 05/21/2020 04:15 [facility] [place] TYPE: Emergency COMPLAINT: - LIGHT HEADED DIAGNOSES: - CHCF (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 of 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 - Allergy status to sulfonamides status - Old myocardial infarction - Schizophrenia, unspecified - Type 2 diabetes mellitus with hyperglycemia - Shortness of breath - Allergy status to other drugs, medicaments and biological sub - Essential (primary) hypertension - Other fpc (current) drug therapy - lobsterman (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 - Gastro-esophageal reflux disease without esophagitis 05/13/2020 19:47 [facility] [place] TYPE: Emergency COMPLAINT: - MEDICAL CLEARANCE DIAGNOSES: - Allergy status to other drugs, medicaments and biological sub - Other superintendent terminal (current) drug therapy - lobsterman (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 of 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 - Encounter for other general examination - Essential (primary) hypertension - Gastro-esophageal reflux disease without esophagitis - lobsterman (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 - Allergy status to sulfonamides status - Old myocardial infarction - Type 2 diabetes mellitus without complications 05/06/2020 06:05 [facility] [place] TYPE: Emergency COMPLAINT: - RAPID HEARTRATE DIAGNOSES: - Gastro-esophageal reflux disease without esophagitis - CHCF (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 of 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 - Allergy status to sulfonamides status - Essential (primary) hypertension - Allergy status to other drugs, medicaments and biological sub - Type 2 diabetes mellitus without complications - CHCF (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 - Palpitations - Old myocardial infarction - Other fpc (current) drug therapy 05/03/2020 19:00 [facility] [place] TYPE: Emergency COMPLAINT: - RAPID HEART RATE DIAGNOSES: - Allergy status to other drugs, medicaments and biological sub - Allergy status to sulfonamides status - Old myocardial infarction - Gastro-esophageal reflux disease without esophagitis - Essential (primary) hypertension - lobsterman (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 of 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 - Type 2 diabetes mellitus with hyperglycemia - lobsterman (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 - Palpitations - Other superintendent terminal (current) drug therapy 04/28/2020 18:43 [facility] [place] TYPE: Emergency COMPLAINT: - MEDICAL CLEARANCE DIAGNOSES: - Gastro-esophageal reflux disease without esophagitis - Allergy status to other drugs, medicaments and biological sub - Essential (primary) hypertension - Allergy status to sulfonamides status - Type 2 diabetes mellitus without complications - Other superintendent terminal (current) drug therapy - Hallucinations, unspecified - [...] Allergy status to sulfonamides status - Other superintendent terminal (current) drug therapy - Abrasion, left knee, [...] Gastro-esophageal reflux disease without esophagitis - Other superintendent terminal (current) drug therapy - Delusional disorders 10/22/2019 16:37 [facility] [place] TYPE: Emergency COMPLAINT: - MEDICAL CLEARANCE DIAGNOSES: - Type 2 diabetes mellitus without complications - Gastro-esophageal reflux disease without esophagitis - Old myocardial infarction - Other superintendent terminal (current) drug therapy - Essential (primary) hypertension - Allergy status to sulfonamides status - Allergy status to other drugs, medicaments and biological sub - Encounter for other general examination 10/20/2019 20:02 [facility] [place] TYPE: Emergency COMPLAINT: - MEDICAL CLEARANCE DIAGNOSES: - Gastro-esophageal reflux disease without esophagitis - Type 2 diabetes mellitus without complications - Encounter for other general examination - Other fpc (current) drug therapy - Old myocardial infarction [...] ischemic attack (TIA), and cere - Other superintendent terminal (current) drug therapy - Old myocardial infarction - Essential (primary) hypertension - Type 2 diabetes mellitus with hyperglycemia 10/11/2019 10:06 [facility] [place] TYPE: Emergency COMPLAINT: - MEDICAL CLEARANCE DIAGNOSES: - Essential (primary) hypertension - Delusional disorders - Old myocardial infarction - Delusional disorders - Allergy status to sulfonamides status - Other fpc (current) drug therapy - Schizoaffective disorder, unspecified 09/28/2019 13:19 [facility] [place] TYPE: Emergency COMPLAINT: - MEDICAL CLEARANCE DIAGNOSES: - Type 2 diabetes mellitus without complications - Allergy status to other drugs, medicaments and biological sub - Old myocardial infarction - Other superintendent terminal (current) drug therapy - Allergy status to sulfonamides status - Gastro-esophageal reflux disease without esophagitis - Essential (primary) hypertension - Suicidal ideations - Encounter for other administrative examinations 09/26/2019 10:06 [facility] [place] TYPE: Emergency COMPLAINT: - MEDICAL CLEARANCE DIAGNOSES: - Other superintendent terminal (current) drug therapy - Personal history of transient ischemic attack (TIA), and cere - Gastro-esophageal reflux disease without esophagitis - Allergy status to sulfonamides status - Old myocardial infarction - Schizoaffective disorder, unspecified - Allergy status to other drugs, medicaments and biological sub - Essential (primary) hypertension - CHCF (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 09/25/2019 13:35 [facility] [place] TYPE: Emergency COMPLAINT: - HEARING VOICES DIAGNOSES: - Type 2 diabetes mellitus without complications - Personal history of transient ischemic attack (TIA), and cere - Gastro-esophageal reflux disease without esophagitis - Schizoaffective disorder, unspecified - Suicidal ideations - CHCF (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 - Old myocardial infarction - Allergy status to sulfonamides status - Essential (primary) hypertension - Other fpc (current) drug therapy - Allergy status to other drugs, medicaments and biological sub 09/18/2019 13:53 [facility] [place] TYPE: Emergency COMPLAINT: - MEDICAL CLEARANCE DIAGNOSES: - Type 2 diabetes mellitus without complications - Schizoaffective disorder, unspecified - Suicidal ideations - Allergy status to other drugs, medicaments and biological sub - Gastro-esophageal reflux disease without esophagitis - Old myocardial infarction - lobsterman (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 - Essential (primary) hypertension - Rash and other nonspecific skin eruption - Allergy status to sulfonamides status - Other fpc (current) drug therapy 09/18/2019 10:33 [facility] [place] TYPE: Emergency COMPLAINT: - SUICIDAL THOUGHTS, HEARING VOICES DIAGNOSES: - Disorder of urea cycle metabolism, unspecified - Other superintendent terminal (current) drug therapy - Schizoaffective disorder, unspecified - Essential (primary) hypertension - Type 2 diabetes mellitus without complications - Gastro-esophageal reflux disease without esophagitis - Old myocardial infarction - Allergy status to sulfonamides status - Allergy status to other drugs, medicaments and biological sub - lobsterman (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 Plus 4 More Visits INPATIENT VISIT TRACKING (12 MO.) [...] sub - Paroxysmal atrial fibrillation - Other fpc (current) drug therapy - Allergy status to sulfonamides status [email or web address]
[2020-05-25] MEDS ORDERED: GLUCOPHAGE1000 MG PO (12:37)
--- NOTE | 2020-05-25 14:16 | EKG ---
[facility] [address] [place], [place] [address] Signed Normal sinus rhythm Left axis deviation Left bundle branch block Abnormal ECG Confirmed by RONALD DIAZ DO ([id number]) on 05/25/2020 2:15:50 PM Electronically Signed By: RONALD DIAZ DO 05/25/20 1416 PATIENT NAME: BERNARDA ALARCON AIDE Electrocardiogram DATE OF : 55 PHYSICIAN: RONALD DIAZ DO REPORT #: [id number] REPORT IS CONFIDENTIAL AND NOT TO BE RELEASED WITHOUT AUTHORIZATION
== END 2020-05-25 15:40 | disposition home or self-care (01) ==
LOC: ED 12:31
DX: R07.9 Chest pain, unspecified (principal); K21.9 Gastro-esophageal reflux disease without esophagitis; I10 Essential (primary) hypertension; E11.9 Type 2 diabetes mellitus without complications; I25.2 Old myocardial infarction; Z88.2 Allergy status to sulfonamides; Z88.8 Allergy status to other drugs, medicaments and biological substances; Z79.899 Other long term (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; Z79.82 Long term (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; Z79.84 Long term (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 of 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
CPT/HCPCS: 71045; 80053; 83735; 84484; 85025; 93005; 93010; 96374; 96375; 99285-25; J1815; J1885; J2405

== ENCOUNTER 2020-06-24 01:29 | Emergency (ER) | payer MEDICARE ==
[~2020-06-24] VITALS: Ht 170.2 cm; Wt 90.7 kg
--- OUTSIDE RECORDS SUMMARY | ~2020-06-24 | XMS | Encounter Summary ---
Demographics + + + | Address | [address] | | | [place] [address] | + + + | Home Phone | | + + + | Preferred Language | Unknown | + + + | Marital Status | | + + + | Amish Affiliation | 1013 | + + + | Race | White | + + + | Ethnic Group | Not or | + + + Author + + + | Author | [facility] | | | and [place] | + + + | Organization | [facility] | | | and [place] | + + + | Address | Unknown | + + + | Phone | Unavailable | + + + Support + + + + + | Name | Relationship | Address | Phone | + + + + + | Araceli Sibley | ECON | [place], [place] | | | | | [address] | | + + + + + Care Team Providers + +------+ + | Care College Physics Instructor Name | Role | Phone | + +------+ + PCP | Unavailable | + +------+ + Encounter Details +--------+ + + + + | Date | Type | Department | Care Team | Description | +--------+ + + + + | 12/22/ | Hospital | [facility] | | | | 1993 - | Encounter | MED [facility] GENERIC PSY | | | | | | CONV DEPT [address] | | | | 12/25/ | | [place], | | | | 1993 | | [place] [address] | | | | | | [phone] | | | +--------+ + + + + Social History + +-------+ +--------+------+ | Tobacco Use | Types | Packs/Day | Years | Date | | | | | Used | | + +-------+ +--------+------+ | Never Assessed | | | | | + +-------+ +--------+------+ + + + | Sex Assigned at | Date Recorded | | | | + + + | Not on file | | + + + documented as of this encounter Plan of Treatment Not on filedocumented as of this encounter Visit Diagnoses Not on filedocumented in this encounter"
--- OUTSIDE RECORDS SUMMARY | ~2020-06-24 | XMS | Encounter Summary ---
Demographics + + + | Address | [address] | | | [place] [address] | + + + | Home Phone | | + + + | Preferred Language | Unknown | + + + | Marital Status | | + + + | Rastafarian Affiliation | 1013 | + + + | Race | White | + + + | Ethnic Group | Not or | + + + Author + + + | Author | [facility] | | | and [place] | + + + | Organization | [facility] | | | and [place] | + + + | Address | Unknown | + + + | Phone | Unavailable | + + + Support + + + + + | Name | Relationship | Address | Phone | + + + + + | Araceli Sibley | ECON | [place] | | | | | [address] | | + + + + + Care Team Providers + +------+ + | Care Stoker Installation Mechanic Name | Role | Phone | + +------+ + | Natalee Andersen NP | PCP | | + +------+ + Reason for Visit +--------+--------+ + | Reason | Onset | Comments | | | Date | | +--------+--------+ + | Other | 06/26/ | | | | 2013 | | +--------+--------+ + Encounter Details +--------+ + + + + | Date | Type | Department | Care Team | Description | +--------+ + + + + | 06/26/ | Telephone | [facility] | Frandy Teresa, | Other | | 2013 | | NEUROSURGERY [address] | DO [address] | | | | | [address] | [address] [place], [place] | | | | | [place], [place] | [id number] | | | | | [address] | | | | | | [phone] | | | +--------+ + + + [...] this encounter Miscellaneous Notes Telephone Encounter - Shayne Aragon Cert MA - 06/27/2014 2:58 PM PDTPatricia states she w as cleared by her PCP. They were to be faxing her results to our office, however, I have no t yet received them. She will have them re-faxed. SHAYNE ARAGON elephone Lashawn Salcedo - 06/27/2014 8:21 AM PDTPatient returned call. elephone Encounter - Shayne Aragon Cert MA - 12/2013 4:45 PM PDTLeft message for Cindy, asking her to return my call. SHAYNE ARAGON elephone EncounCarol Sloan - 06/26/2014 12:01 PM PDTPatient called wanting to reschedule her surg destinee, she will not be availble to day between 2-3, please advise. documented in this encounter Plan of Treatment Not on filedocumented as of this encounter Visit Diagnoses Not on filedocumented in this encounter"
--- OUTSIDE RECORDS SUMMARY | ~2020-06-24 | XMS | Encounter Summary ---
Demographics + + + | Address | [address] | | | [place] [address] | + + + | Home Phone | | + + + | Preferred Language | Unknown | + + + | Marital Status | | + + + | Catholic Affiliation | 1013 | + + + | Race | White | + + + | Ethnic Group | Not or | + + + Author + + + | Author | [facility] | | | and [place] | + + + | Organization | [facility] | | | and [place] | + + + | Address | Unknown | + + + | Phone | Unavailable | + + + Support + + + + + | Name | Relationship | Address | Phone | + + + + + | Araceli Sibley | ECON | [place] | | | | | [address] | | + + + + + Care Team Providers + +------+ + | Care Contract Coordinator Name | Role | Phone | + +------+ + | Adriano Patrick MD | PCP | | + +------+ + Reason for Visit +--------+ + | Reason | Comments | +--------+ + | Apnea | | +--------+ + Encounter Details +--------+---------+ + + + | Date | Type | Department | Care Team | Description | +--------+---------+ + + + | 04/30/ | [facility] | [facility] | Russell Alfaro PA | ROGERS on CPAP (Primary | | 2015 | Visit | SLEEP DISORDER [address] | [address] | Dx) | | | | [address] | [place] | | | | | [place] [address] | [id number] | | | | | [phone] | | | +--------+---------+ + + + [...] + + + | Blood Pressure | 122/72 | 04/30/2015 11:19 AM | | | | | PDT | | + + + + + | Pulse | 86 | 04/30/2015 11:19 AM | | | | | PDT | | + + + + + | Temperature | - | - | | + + + + + | Respiratory Rate | 14 | 04/30/2015 11:19 AM | | | | | PDT | | + + + + + | Oxygen Saturation | 97% | 04/30/2015 11:19 AM | | | | | PDT | | + + + + + | Inhaled Oxygen | - | - | | | Concentration | | | | + + + + + | Weight | 125.7 kg (277 lb 1.6 | 04/30/2015 11:19 AM | | | | oz) | PDT | | + + + + + | Height | - | - | | + + + + + | Body Mass Index | 42.13 | 03/06/2015 9:06 AM | | | | | PDT | | + + + + + documented in this encounter Progress Notes Gail Cadet, Master of Arts - 04/30/2015 11:12 AM PDTFormatting of this note might be di rikkierent from the original. 07/08/15 1100 Holland Depression Inventory-II Depression Score 9 - Minimal depression Insomnia Severity Index Insomnia Severity Index 13 [place] Sleepiness Scale Sitting and reading 3 Watching TV 3 Sitting, inactive in a public place (e.g. a theatre or a meeting) 3 As a passenger in a car for an hour without a break 2 Lying down to rest in the afternoon when circumstances permit 3 Sitting and talking to someone 2 Sitting quietly after a lunch without alcohol 2 In a car, while stopped for a few minutes in traffic 0 Total score 18 SF-36v2 Score PF 46.51 RP 44.61 BP 37.18 GH 57.7 VT 42.72 SF 40.49 RE 55.88 MH 55.64 PCS 41.97 MCS 53.62 oram, ZANE Danielle - 05/2015 10:52 AM PDT Subjective: Patient ID: Cindy Arndt is a 59 y.o. female. HPI last office visit was: 03/06/2013 date of polysomnography: 03/11/2005 AHI: 14.6 RDI: O2%: 79% with 21.7 minutes below 88% Machine type: ResMed AirSense 10 with nasal obtained from: [facility] [place] pressure: 11-20 cm Median: 12.1 cm 95%: 14.6 cm maximum: 15.8 cm Nights using CPAP: 358/365 % of nights >4 hours: 85% average usage (all nights): 6:49 average usage (nights used): 6:57 AHI: 2.8 Tigist comes in for CPAP compliance. She is doing very well with her CPAP, wearing it nightly for the duration of the night and during her daytime naps, but she continues to be tired du ring the day. This is concerning to her. She inquired about possible treatments for this. At her last appointment [address] Gonzales, he had recommended that she have a cons istent wake time and bed time. After that visit, she worked hard on this and says her dayti me sleepiness improved considerably. Her sleep schedule is currently very erratic. She is to work to improve her sleep schedule, waking at the same time each day, napping in the afte rnoon (8 hours after waking), then going to bed at night when she becomes sleepy. I have discussed the download in detail. This shows that her sleep apnea is well controlle d, with an AHI of 2.8. It also shows that her leaks are controlled on most nights. Review of Systems Objective: Physical Exam Assessment: Problem #1: OBSTRUCTIVE SLEEP APNEA (327.23) This is well controlled with CPAP. Her CPAP compliance is going well, but she continues to be sleepy during the day. Plan: She is to continue with CPAP indefinitely. She is to work to improve her sleep schedule, w aking at the same time each day, napping in the afternoon (8 hours after waking) if necessar y, then going to bed at night when she becomes sleepy. We will reevaluate her daytime sleep iness when she improves her sleep schedule. I will follow up again in 1 year, sooner prn. At that time we will reassess with all appro priate paperwork. Thirty minutes were spent [id number], with the majority of time spent i n counseling. Russell Alfaro PA-C cc: Adriano Patrick MD documented in this enco unter Plan of Treatment Not on filedocumented as of this encounter Visit Diagnoses + + | Diagnosis | + + | ROGERS on CPAP - Primary Obstructive sleep apnea (adult) (pediatric) | + + documented in this encounter"
--- OUTSIDE RECORDS SUMMARY | ~2020-06-24 | XMS | Encounter Summary ---
Demographics + + + | Address | [address] [facility] [address] | | | [place] [address] | + + + | Home Phone [...] + + + | Author | [facility] | | | and [place] | + + + | Organization | [facility] | | | and [place] | + + + | Address | Unknown | + + + | Phone | Unavailable | + + + Support + + + + + | Name | Relationship | Address | Phone | + + + + + | Araceli Sibley | ECON | [place] | | | | | [address] | | + + + + + Care Team Providers + +------+ + | Care Automotive Exhaust Emissions Technician Name | Role | Phone | + +------+ + | Natalee Andersen NP | PCP | | + +------+ + Reason for Visit + + + | Reason | Comments | + + + | Facial Droop | | + + + Encounter Details +--------+ + + + + | Date | Type | Department | Care Team | Description | +--------+ + + + + | // | Emergency | [facility] | [place], | CVA (cerebral | | 2015 | | [facility] | Davey Simons MD [address] | vascular accident) | | | | CENTER [address] | [address] [facility] | ([facility], [facility]IN [facility]) (Primary Dx) | | | | [place], [place] | [place] [address] | | | | | [address] | [phone] | | | | | [phone] | | | +--------+ + + + [...] + + + | Blood Pressure | 140/62 | 02/26/2015 3:28 PM | | | | | PDT | | + + + + + | Pulse | 60 | 02/26/2015 3:28 PM | | | | | PDT | | + + + + + | Temperature | 36.2 C (97.2 F) | 02/26/2015 1:14 PM | | | | | PDT | | + + + + + | Respiratory Rate | 20 | 02/26/2015 3:28 PM | | | | | PDT | | + + + + + | Oxygen Saturation | 94% | 02/26/2015 3:28 PM | | | | | PDT | | + + + + + | Inhaled Oxygen | - | - | | | Concentration | | | | + + + + + | Weight | 133.4 kg (294 lb) | 02/26/2015 1:14 PM | | | | | PDT | | + + + + + | Height | 170.2 cm (5' 7") | 02/26/2015 1:14 PM | | | | | PDT | | + + + + + | Body Mass Index | 46.05 | 02/26/2015 1:14 PM | | | | | PDT | | + + + + + documented in this encounter Discharge Instructions Instructions Davey Varela MD - 02/26/2015Use Plavix or Aggrenox as prescribed Follow up with Dr. Newman. Increase HCTZ to twice-daily documented in this encounter Medications at Time [...] + +---------+ + + | aspirin 81 mg | Take 81 mg by mouth | | 0 | | | | chewable tablet | Daily. | | | | 5 | + + + +---------+ + + | | Take 1 capsule by | | 0 | | | | aspirin-dipyridamole | mouth 2 times daily. | | | | 5 | | (AGGRENOX) 25-200 | | | | | | | mg per 12 hr capsule | | | | | | [...] by | | 0 | 03/29/20 | 05/14/201 | | 1040 MG TABS | mouth [...] + + + +---------+ + + | dexlansoprazole | Take 60 mg by mouth | | 0 | | | | (DEXILANT) [address] | Daily. | | | | 5 | | capsule | | [...] + + + +---------+ + + | gabapentin | Take 1 capsule by | 90 | 2 | 08/26/20 | | | (NEURONTIN) 300 mg | mouth 3 times daily. | capsule | | 14 | 5 | | capsule | | | | | | + + + +---------+ + + | | Take 1 tablet by | 30 | 1 | 02/27/20 | | | hydrochlorothiazide | mouth 2 times daily. | tablet | | 15 | 5 | | 25 mg tablet | | | | | | + + + +---------+ + + | | Take 1-2 tablets by | 60 | 0 | 09/26/20 | | | HYDROcodone-acetamin | mouth every 4 hours | tablet | | 14 | 9 | | ophen (NORCO) 10-325 | as [...] + + + +---------+ + + | Sadorus-3 Fatty | Take 1,000 mg by | [...] + +---------+ + + | | Take 1 tablet by | | 0 | | | | oxyCODONE-acetaminop | mouth every 12 hours | | | | 5 | | hen (PERCOCET) | as needed for Pain. | | | | | | 10-325 mg per tablet | | | | [...] + + documented as of this encounter ED Notes Davey Varela MD - 02/26/2015 1:37 PM PDTFormatting of this note might be differe nt from the original. [facility] Emergency Department Encounter Note [address] [place] [address] PCP:Natalee Andersen [phone] CHIEF COMPLAINT: Chief Complaint Patient presents with Facial Droop ED Room: ED07/ED07 [facility] Cindy Arndt is a 59 y.o. female who presents to the Emergency Department accompanied by a friend from [place] for evaluation. The patient recently had symptoms that were diagno sed as stroke or TIA. The symptoms were of a weakness and numbness in her right arm and leg . She was hospitalized for 4 days in [place] for this. She was discharged and subsequent ly has had 2 or 3 emergency department visits in [place] for symptoms diagnosed as TIAs. These have been recurrent and worsening right arm and leg weakness and then today with some right facial drooping and drooling. She is on Aggrenox. She had a full workup in [place] including brain CT, brain MRI, and carotid studies. She has been on Aggrenox. She has not had fevers or chills, no headache, chest pain, abdominal pain, nausea, or vomiting. PAST MEDICAL & SURGICAL HISTORY Past Medical History Diagnosis Date GERD (gastroesophageal [...] Sprain of ankle and foot Past Surgical History Procedure Laterality Date Jorje placement tibia 2001 RIGHT Cholecystectomy 1998 Mastectomy, partial 1996 lt breast, for abcesses Hysterectomy 1992 [facility], Tonsillectomy Dilatation & curretage 1973 Gastric sleeve 2013 Lumbar laminectomy 07/02/2014 MIS L5-S1 TRANSFORAMINAL LUMBAR INTERBODY FUSION ; Laterality: N/A; Surgeon: Frandy castellanos DO; Location: [facility] MAIN OR CURRENT MEDICATIONS Discharge Medication List as of 02/26/2015 15:21 CONTINUE these medications which have NOT CHANGED Details asenapine (SAPHRIS) [address] 10 mg under the tongue nightly.Historical Med aspirin 81 mg chewable tablet Take 81 mg by mouth Daily.Historical Med aspirin-dipyridamole (AGGRENOX) 25-200 mg per 12 hr capsule Take 1 capsule by mouth 2 times daily.Historical Med atenolol (TENORMIN) 50 mg tablet Take 25 mg by mouth nightly.Historical Med B Complex Vitamins (VITAMIN B COMPLEX PO) Take 1 capsule by mouth Daily.Historical Med Calcium Citrate 1040 MG TABS Take 1,040 mg by mouth Daily. Cholecalciferol (VITAMIN D3) 2000 UNITS CAPS Take 2,000 Units by mouth 2 times daily. Cyanocobalamin (VITAMIN B12 PO) Place 2,500 mcg under the tongue Daily.Historical Med dexlansoprazole (DEXILANT) [address] capsule Take 60 mg by mouth Daily.Historical Med diazepam (VALIUM) 5 mg tablet Take 1 tablet by mouth every 6 hours as needed.Disp-60 tablet , R-0, Print Digestive Enzymes (PAPAYA ENZYME PO) Take 2 capsules by mouth 3 times daily.Historical Med divalproex (DEPAKOTE) 500 mg EC tablet 1250mg by mouth at bedtime fluocinonide (LIDEX) 0.05 % ointment Apply to affected area twice daily as needed gabapentin (NEURONTIN) 300 mg capsule Take 1 capsule by mouth 3 times daily.Disp-90 capsule , R-2, Normal HYDROcodone-acetaminophen (NORCO) 10-325 mg per tablet Take 1-2 tablets by mouth every 4 ho urs as needed for Pain.Disp-60 tablet, R-0, Print Lactulose SOLN Take 30 mLs by mouth every 6 hours as needed (Constipation).Disp-240 mL, R-1 , Print levothyroxine (SYNTHROID) 100 mcg tablet Take 100 mcg by mouth Daily. lisinopril (PRINIVIL, ZESTRIL) 10 mg tablet Take 10 mg by mouth Daily.Medication has a PEGGY K BOX Warning or Severe Contraindications. Consult references such as [facility] for furthe r information. Magnesium 250 MG TABS Take 2 tablets by mouth nightly.Historical Med Melatonin [address] 5 mg under the tongue nightly. metFORMIN (GLUCOPHAGE) 500 mg tablet Take 500 mg by mouth as needed.Historical MedMetformin is contraindicated in renal disease or dysfunction (serum creatinine greater than or equal to 1.5 mg/dL (males) or 1.4 mg/dL (females) or an abnormal creatinine clearance). Medication has a BLACK B OX Warning or Severe Contraindications. Follow metFORMIN (GLUCOPHAGE-XR) 500 mg 24 hr tablet Take 500 mg by mouth 2 times daily.Historical MedMetformin is contraindicated in renal disease or dysfunction (serum creatinine greater t juarez or equal to 1.5 mg/dL (males) or 1.4 mg/dL (females) or an abnormal creatinine clearance ). Medication has a LLOYD CK BOX Warning or Severe Contraindications. Consult references such as [facility] for further information. Multiple Vitamins-Minerals (CENTRUM SILVER PO) Take 1 tablet by mouth Daily.Historical Med OLANZapine zydis (ZYPREXA ZYDIS) 15 MG disintegrating tablet Take 15 mg by mouth nightly. Sadorus-3 Fatty Acids (FISH OIL CONCENTRATE) 1000 MG CAPS Take 1,000 mg by mouth 3 times adelfo y. omeprazole (PRILOSEC) 40 MG capsule Take 40 mg by mouth Daily. oxyCODONE-acetaminophen (PERCOCET) 10-325 mg per tablet Take 1 tablet by mouth every 12 kenny rs as needed for Pain.Historical Med PARoxetine (PAXIL) 20 mg tablet Take 20 mg by mouth Daily. tocopherol (VITAMIN E) 400 units capsule Take 400 Units by mouth 2 times daily.Historical M ed UNCODED MEDICATION Diagnosis: Obstructive Sleep Apnea ICD-9: 327.23 Length of Need: 99 MonthsDisp-1 Device, R-0, PrintCPAP Mask, Headgear, Chinstrap, Cushions, Nasal Pillows, Tubing (heated coil), Humidifier Chamber, Filters. ALLERGIES Allergies Allergen Reactions Erythromycin Nausea And Vomiting Fluoxetine Other (See Comments) "mind racing" Haloperidol Other (See Comments) "mind racing" Prochlorperazine Maleate Other (See Comments) Skin crawling/agitation Promethazine Hcl Other (See Comments) Skin crawling/agitation Topamax Other (See Comments) "mind racing and dellusions" Demerol Nausea And Vomiting Duloxetine Muscle weakness, profuse sweating Sulfa Antibiotics Rash FAMILY AND SOCIAL HISTORY Family History Problem Relation Age of Onset High blood pressure Mother High blood pressure Father Cancer Sister cervical Arthritis Mother Thyroid disease Mother Heart disease Mother Other (See Comment) Father lung disease Mental illness Father History Social History Marital Status: Spouse Name: N/A Number of Children: N/A Years of Education: N/A Social History Main Topics Smoking status: Never Smoker Smokeless tobacco: Never Used Alcohol Use: No Drug Use: No Sexual Activity: No Other Topics Concern None Social History Narrative REVIEW OF SYSTEMS As in history of present illness. A 10 system review was otherwise negative. PHYSICAL EXAM VITAL SIGNS: (first vital signs):Temp: 36.2 C (97.2 F) Pulse: 68 Resp: 20 SpO2: 95 % BP : 159/75 mmHg Constitutional: female patient, Mild distress HEENT: Atraumatic, PERRL, Oropharynx benign. Neck: Supple with full range of motion. No JVD and no lymphadenopathy. Respiratory: Good air movement bilaterally. No wheezes, No, rales. Cardiovascular: Normal S1 S2 Abdomen: Soft, nontender. No rebound, guarding, or masses. Bowel tones normal. No pulsa tile masses Back: Within normal limits and No CVA tenderness Extremities: Nontender. Trace edema, no calf asymmetry. Present distal pulses. Skin: Warm, Dry, No rashes Neurologic: Alert & oriented. Cranial nerves II-XII intact , with the exception of some de creased sensation on the right side of her face. Gait and speech are normal. She has 4 plus out of 5 strength in her right arm and right leg, 5 out of 5 on the left side. No pronator drift. Proprioception intact and accurate on the left, slightly off target using her right (dominant) side. Rapid alternating movements limited on the right, normal on the left. Psychiatric: Normal mood, affect and judgement. LABS Results for orders placed during the hospital encounter of 02/26/15 CBC WITH DIFFERENTIAL Result Value Ref Range WBC 7.7 4.0-11.0 K/uL RBC 4.21 3.70-5.20 M/uL Hgb 11.0 (*) 11.5-16.0 g/dL Hct 34.2 34.0-47.0 % MCV 81.2 (*) 83.0-101.0 fL MCH 26.1 (*) 28.0-35.0 pg MCHC 32.2 32.0-36.0 g/dL RDW 16.1 (*) <15.0 % Platelet Count 304 140-440 K/uL MPV 7.7 % Neutrophils 59.5 45.0-82.0 % % Lymphocytes 31.2 20.0-45.0 % % Monocytes 7.2 4.0-12.0 % % Eosinophils 1.8 0.0-5.0 % % Basophils 0.3 0.0-1.0 % Absolute Neutrophils 4.60 1.80-8.50 K/uL Absolute Lymphocytes 2.40 0.60-3.20 K/uL Absolute Monocytes 0.60 0.00-1.00 K/uL Absolute Eosinophils 0.10 0.00-0.40 K/uL Absolute Basophils 0.00 0.00-0.10 K/uL COMPREHENSIVE METABOLIC PANEL Result Value Ref Range NA 127 (*) 136-149 mmol/L K 3.6 3.5-5.1 mmol/L CL 93 (*) 98-109 mmol/L CO2 28 24-31 mmol/L ANION GAP 6 3-16 mmol/L GLUCOSE 111 (*) 70-109 mg/dL BUN 13 7-18 mg/dL Creatinine, Serum/Plasma 0.64 0.60-1.30 mg/dL eGFR if not >60 >=60 mL/min/1.73m2 CALCIUM 9.1 8.3-10.5 mg/dL ALBUMIN 3.7 3.2-5.0 g/dL BILIRUBIN TOTAL 0.5 0.1-1.5 mg/dL Total protein 5.8 (*) 6.0-7.8 g/dL AST 24 10-42 U/L ALT 23 6-45 U/L ALK PHOS 69 40-110 U/L GLOBULIN 2.1 Albumin/Globulin ratio 1.8 BUN/CREA 20.3 IMAGING STUIDES (X-Rays interpreted by ED Physician) No imaging studies were obtained here today, but I did review all of her imaging studies from [facility] ED COURSE & MEDICAL DECISION MAKING Pertinent Labs & Imaging studies were reviewed along with EMS notes and [facility] record s if applicable. (See chart for details) Medications and Allergy list reviewed. Nurses note and old records were reviewed The patient was seen and examined, I was finally able to get her [facility] which showed a normal MRI and less than 50% carotid artery stenosis bilaterally. He r symptoms seem to have stabilized for the most part, the only exception being the facial nu mbness today. She had been on aspirin, then Aggrenox, and now also has a prescription for P lavix instead. I discussed the case with Dr. Newman from neurology who stated the patien t should be on an antiplatelet agent but it could be either Plavix or Aggrenox depending on insurance coverage. No other changes in her management are indicated at this time with quin rds to stroke, and he will see her in clinic within the next 24 hours. Because her blood pr essure is elevated at home on a regular basis, but not significantly elevated above normal, I have increased her hydrochlorothiazide to twice daily. Last Set of Vital Signs: Temp: 36.2 C (97.2 F) Pulse: 60 Resp: 20 SpO2: 94 % BP: 140/62 mmHg FINAL IMPRESSION 1. CVA (cerebral vascular accident) (HCC) Follow-up Information Follow up with [facility]. Specialty: Emergency Medicine Contact information: [address] [address] Follow up with [facility]. Specialty: Emergency Medicine Contact information: [address] [address] Follow up with Natalee Andersen NP. Specialty: Family Nurse Practitioner Contact information: [address] [place] [address] Schedule an appointment as soon as possible for a visit with Baudilio Newman MD. Specialty: Neurology Contact information: [address] [facility] [address] Discharge Medication List as of 02/26/2015 15:21 Davey Varela MD 02/26/15 1732 do cumented in this encounter Miscellaneous Notes ED Triage Notes - Yesenia Monroy RN - 02/26/2015 1:11 PM PDTC/O right sided facial mahendra op and numbness to right arm and leg onset yesterday at approximately 1800. Pt was seen in [facility] by her primary care physician this morning for the same symptoms and states "they d idn't do anything for me, they didn't even examine me." History of stroke affecting right si de 02/01/15, states she has fully recovered from this. Arrives with notable right sided faci al droop, no unilateral deficits, able to ambulate without difficulty, speech clear and appr opriate. documented i n this encounter Plan of Treatment Not on filedocumented as of this encounter Procedures + +--------+ + + + | Procedure Name | Priori | Date/Time | Associated Diagnosis | Comments | | | ty | | | | + +--------+ + + + | CBC WITH | STAT | 02/26/2015 | | Results for this | | DIFFERENTIAL | | 1:54 PM | | procedure are in the | | | | PDT | | results section. | + +--------+ + + + | COMPREHENSIVE | STAT | 02/26/2015 | | Results for this | | METABOLIC PANEL | | 1:54 PM | | procedure are in the | | | | PDT | | results section. | + +--------+ + + + | ED INFORMATION | Routin | 02/26/2015 | | Results for this | | EXCHANGE | e | 1:11 PM | | procedure are in the | | | | PDT | | results section. | + +--------+ + + + documented in this encounter Results Comprehensive Metabolic Panel (02/26/2015 1:54 PM PDT) + + + + + + | Component | Value | Ref Range | Performed | Pathologist | | | | | At | Signature | + + + + + + | Na | 127 (L) | 136 - 149 | [facility] | | | | | mmol/L | [facility] | | | | | | MEDICAL | | | | | | CENTER - | | | | | | LABORATORY | | + + + + + + | K | 3.6 | 3.5 - 5.1 | [facility] | | | | | mmol/L | [facility] | | | | | | MEDICAL | | | | | | CENTER - | | | | | | LABORATORY | | + + + + + + | Cl | 93 (L) | 98 - 109 mmol/L | [facility] | | | | | | [facility] | | | | | | MEDICAL | | | | | | CENTER - | | | | | | LABORATORY | | + + + + + + | CO2 | 28 | 24 - 31 mmol/L | [facility] | | | | | | [facility] | | | | | | MEDICAL | | | | | | CENTER - | | | | | | LABORATORY | | + + + + + + | Anion Gap | 6 | 3 - 16 mmol/L | [facility] | | | | | | [facility] | | | | | | MEDICAL | | | | | | CENTER - | | | | | | LABORATORY | | + + + + + + | Glucose | 111 (H) | 70 - 109 mg/dL | [facility] | | | | | | [facility] | | | | | [facility] | | | | | | CENTER - | | | | | | LABORATORY | | + + + + + + | BUN | 13 | 7 - 18 mg/dL | [facility] | | | | | | [facility] | | | | | | [facility] | | | | | | CENTER - | | | | | | LABORATORY | | + + + + + + | Creatinine | 0.64 | 0.60 - 1.30 | [facility] | | | | | mg/dL | [facility] | | | | | | MEDICAL | | | | | | CENTER - | | | | | | LABORATORY | | + + + + + + | eGFR, | >60Comment: GLOMERULAR | >=60 | [facility] | | | non- | FILTRATION | mL/min/1.73m2 | [facility] | | | [place] | RATE,ESTIMATED | | MEDICAL | | | | mL/min/1.49g3Kvse than | | CENTER - | | | | 60 Chronic kidney | | LABORATORY | | | | disease,if found over a | | | | | | 3-month period.Less than | | | | | | 15 Kidney failureFor | | | | | | | | | | | | Americans,multiply the | | | | | | calculated GFR by 1.21. | | | | | | | | | | + + + + + + | Calcium | 9.1 | 8.3 - 10.5 | [facility] | | | | | mg/dL | [facility] | | | | | | MEDICAL | | | | | | CENTER - | | | | | | LABORATORY | | + + + + + + | Albumin | 3.7 | 3.2 - 5.0 g/dL | [facility] | | | | | | [facility] | | | | | | MEDICAL | | | | | | CENTER - | | | | | | LABORATORY | | + + + + + + | Bilirubin | 0.5 | 0.1 - 1.5 mg/dL | [facility] | | | Total | | | [facility] | | | | | | MEDICAL | | | | | | CENTER - | | | | | | LABORATORY | | + + + + + + | Total | 5.8 (L) | 6.0 - 7.8 g/dL | [facility] | | | Protein | | | [facility] | | | | | | MEDICAL | | | | | | CENTER - | | | | | | LABORATORY | | + + + + + + | AST | 24 | 10 - 42 U/L | [facility] | | | | | | [facility] | | | | | | MEDICAL | | | | | | CENTER - | | | | | | LABORATORY | | + + + + + + | ALT | 23 | 6 - 45 U/L | [facility] | | | | | | [facility] | | | | | | MEDICAL | | | | | | CENTER - | | | | | | LABORATORY | | + + + + + + | Alkaline | 69 | 40 - 110 U/L | [facility] | | | Phosphatase | | | [facility] | | | | | | MEDICAL | | | | | | CENTER - | | | | | | LABORATORY | | + + + + + + | Globulin | 2.1 | g/dL | [facility] | | | | | | [facility] | | | | | | MEDICAL | | | | | | CENTER - | | | | | | LABORATORY | | + + + + + + | Albumin/Alice | 1.8 | | [facility] | | | bulin Ratio | | | [facility] | | | | | | MEDICAL | | | | | | CENTER - | | | | | | LABORATORY | | + + + + + + | BUN/Creatin | 20.3 | | [facility] | | | ine Ratio | | | [facility] | | | | | | MEDICAL | | | | | | CENTER - | | | | | | LABORATORY | | + + + + + + + + | Specimen | + + | Blood | + + + + + + + | Performing | Address | City/State/Zipcode | Phone Number | | Organization | | | | + + + + + | [facility] | [address] | [place] | [phone] | | [facility] | | [address] | | | - LABORATORY | | | | + + + + + CBC with Differential (02/26/2015 1:54 PM PDT) + + + + + + | Component | Value | Ref Range | Performed | Pathologist | | | | | At | Signature | + + + + + + | White Blood | 7.7 | 4.0 - 11.0 K/uL | [facility] | | | Cells | | | [facility] | | | | | | MEDICAL | | | | | | CENTER - | | | | | | LABORATORY | | + + + + + + | Red Blood | 4.21 | 3.70 - 5.20 | [facility] | | | Cells | | M/uL | [facility] | | | | | | MEDICAL | | | | | | CENTER - | | | | | | LABORATORY | | + + + + + + | Hemoglobin | 11.0 (L) | 11.5 - 16.0 | [facility] | | | | | g/dL | [facility] | | | | | | MEDICAL | | | | | | CENTER - | | | | | | LABORATORY | | + + + + + + | Hematocrit | 34.2 | 34.0 - 47.0 % | [facility] | | | | | | [facility] | | | | | | MEDICAL | | | | | | CENTER - | | | | | | LABORATORY | | + + + + + + | MCV | 81.2 (L) | 83.0 - 101.0 fL | [facility] | | | | | | [facility] | | | | | | MEDICAL | | | | | | CENTER - | | | | | | LABORATORY | | + + + + + + | MCH | 26.1 (L) | 28.0 - 35.0 pg | [facility] | | | | | | [facility] | | | | | | MEDICAL | | | | | | CENTER - | | | | | | LABORATORY | | + + + + + + | MCHC | 32.2 | 32.0 - 36.0 | [facility] | | | | | g/dL | [facility] | | | | | | MEDICAL | | | | | | CENTER - | | | | | | LABORATORY | | + + + + + + | RDW-CV | 16.1 (H) | <15.0 % | [facility] | | | | | | [facility] | | | | | | MEDICAL | | | | | | CENTER - | | | | | | LABORATORY | | + + + + + + | Platelet | 304 | 140 - 440 K/uL | [facility] | | | Count | | | [facility] | | | | | | MEDICAL | | | | | | CENTER - | | | | | | LABORATORY | | + + + + + + | MPV | 7.7 | fL | [facility] | | | | | | [facility] | | | [facility] | | MEDICAL | | | | | | CENTER - | | | | | | LABORATORY | | + + + + + + | % | 59.5 | 45.0 - 82.0 % | [facility] | | | Neutrophils | | | [facility] | | | | | | MEDICAL | | | | | | CENTER - | | | | | | LABORATORY | | + + + + + + | % | 31.2 | 20.0 - 45.0 % | [facility] | | | Lymphocytes | | | [facility] | | | | | | MEDICAL | | | | | | CENTER - | | | | | | LABORATORY | | + + + + + + | % Monocytes | 7.2 | 4.0 - 12.0 % | [facility] | | | | | | [facility] | | | | | | MEDICAL | | | | | | CENTER - | | | | | | LABORATORY | | + + + + + + | % | 1.8 | 0.0 - 5.0 % | [facility] | | | Eosinophils | | | [facility] | | | | | | MEDICAL | | | | | | CENTER - | | | | | | LABORATORY | | + + + + + + | % Basophils | 0.3 | 0.0 - 1.0 % | [facility] | | | | | | [facility] | | | | | | MEDICAL | | | | | | CENTER - | | | | | | LABORATORY | | + + + + + + | Absolute | 4.60 | 1.80 - 8.50 | [facility] | | | Neutrophils | | K/uL | [facility] | | | | | | MEDICAL | | | | | | CENTER - | | | | | | LABORATORY | | + + + + + + | Absolute | 2.40 | 0.60 - 3.20 | [facility] | | | Lymphocytes | | K/uL | [facility] | | | | | | MEDICAL | | | | | | CENTER - | | | | | | LABORATORY | | + + + + + + | Absolute | 0.60 | 0.00 - 1.00 | [facility] | | | Monocytes | | K/uL | [facility] | | | | | | MEDICAL | | | | | | CENTER - | | | | | | LABORATORY | | + + + + + + | Absolute | 0.10 | 0.00 - 0.40 | [facility] | | | Eosinophils | | K/uL | [facility] | | | | | | MEDICAL | | | | | | CENTER - | | | | | | LABORATORY | | + + + + + + | Absolute | 0.00 | 0.00 - 0.10 | [facility] | | | Basophils | | K/uL | [facility] | | | | | | MEDICAL | | | | | | CENTER - | | | | | | LABORATORY | | + + + + + + + + | Specimen | + + | Blood | + + + + + + + | Performing | Address | City/State/Zipcode | Phone Number | | Organization | | | | + + + + + | [facility] | [address] | [place] | [phone] | | [facility] | | [address] | | | - LABORATORY | | | | + + + + + ED INFORMATION EXCHANGE (02/26/2015 1:11 PM PDT) + + | Specimen | + + | | + + + + + | Narrative | Performed At | + + + | INPATIENT VISIT TRACKING (1 MO.) Visit Date | [facility] | | LocationTypeDiagnoses | | | VISIT TRACKING (3 MO.) Visit Date | | | Location Type | | | Diagnoses -------- | | | ---- | | | 02/26/2015 13:10 [facility] | | | Emergency -numbness/facial droop 02/26/2015 08:15 [facility] | | | [facility] 02/19/2015 | | | 10:15 [facility] | | | -Diabetes mellitus without mention of complication, type II or | | | | | | unspecified type, not stated as | | | uncontrolled | | | -Diabetes | | | mellitus without mention of complication, type II or | | | | | | unspecified type, not stated as uncontrolled | | | | | | -Diabetes mellitus without | | | mention of complication, type II or | | | | | | unspecified type, not stated as uncontrolled 02/17/2015 | | | 08:22 [facility] Emergency | | | -Long-term (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 of other medications | | | | | | -Disturbance of skin sensation | | | | | | -Esophageal reflux | | | | | | -Schizoaffective disorder, unspecified | | | | | | -Other acquired absence of organ | | | | | | -Schizoaffective disorder, unspecified | | | | | | -Personal history of transient | | | ischemic attack (TIA), and cerebral | | | | | | infarction without residual deficits | | | | | | -Cardiomegaly | | | | | | -Unspecified essential hypertension | | | | | | -Personal history of transient ischemic attack (TIA), and | | | cerebral | | | infarction without | | | residual deficits | | | -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 | | | | | | -Cardiomegaly | | | -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 | | | | | | -Esophageal reflux | | | -Long-term | | | (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 | | | | | | -Disturbance of skin sensation | | | | | | -Diabetes mellitus without mention of complication, type II or | | | | | | unspecified type, not stated as | | | uncontrolled | | | -Long-term | | | (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 | | | | | | -Unspecified essential hypertension | | | | | | -Long-term (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 of other medications | | | | | | -Diabetes mellitus without mention of | | | complication, type II or | | | | | | unspecified type, not stated as uncontrolled | | | | | | -Acquired absence of both cervix and uterus 02/14/2015 | | | 09:56 [facility] | | | -Disturbance of skin sensation | | | | | | -Long-term (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 of other medications | | | | | | -Esophageal reflux | | | | | | -Unspecified transient cerebral ischemia | | | | | | -Unspecified transient cerebral ischemia | | | | | | -Diabetes mellitus without | | | mention of complication, type II or | | | | | | unspecified type, not stated as uncontrolled | | | | | | -Acquired absence of both cervix and uterus | | | | | | -Schizoaffective disorder, | | | unspecified | | | -Esophageal reflux | | | | | | -Long-term (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 of | | | aspirin | | | -Long-term (current) | | | use of other medications | | | | | | -Acquired absence of organ, genital organs | | | | | | -Acquired absence of both cervix and uterus | | | | | | -Disturbance of skin sensation | | | | | | -Acquired absence of organ, genital | | | organs | | | -Long-term (current) | | | use of other medications | | | | | | -Long-term (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 of other medications | | | | | | -Unspecified transient cerebral ischemia | | | | | | -Long-term (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 | | | | | | -Acquired absence of organ, | | | genital organs | | | -Esophageal | | | reflux | | | -Schizoaffective | | | disorder, unspecified | | | | | | -Disturbance of skin sensation | | | | | | -Unspecified essential hypertension | | | | | | -Long-term (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 | | | | | | -Other postprocedural status | | | | | | -Long-term (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 | | | | | | -Acquired absence of both cervix and uterus | | | | | | -Unspecified transient cerebral | | | ischemia | | | -Unspecified | | | transient cerebral ischemia | | | | | | -Unspecified essential hypertension | | | | | | -Diabetes mellitus without mention of complication, type II or | | | | | | unspecified type, not stated | | | as uncontrolled | | | -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 | | | | | | -Acquired absence of organ, genital organs | | | | | | -Other acquired absence of organ | | | | | | -Diabetes mellitus without mention of | | | complication, type II or | | | | | | unspecified type, not stated as uncontrolled | | | | | | -Other acquired absence of organ | | | | | | -Diabetes mellitus without mention of complication, | | | type II or | | | unspecified type, | | | not stated as uncontrolled | | | | | | -Acquired absence of both cervix and uterus | | | | | | -Other postprocedural status | | | | | | -Other acquired absence of organ | | | | | | -Other acquired absence of organ | | | | | | -Unspecified essential hypertension | | | | | | -Acquired absence of organ, genital organs | | | | | | -Other postprocedural status | | | | | | -Disturbance of skin sensation | | | | | | -Unspecified essential | | | hypertension | | | -Other acquired | | | absence of organ | | | -Esophageal | | | reflux | | | -Schizoaffective | | | disorder, unspecified | | | -Other | | | postprocedural status | | | | | | -Long-term (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 | | | | | | -Long-term (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 of other medications | | | | | | -Unspecified essential hypertension | | | | | | -Schizoaffective disorder, unspecified | | | | | | -Esophageal reflux | | | | | | -Disturbance of skin sensation | | | | | | -Diabetes mellitus without mention of | | | complication, type II or | | | | | | unspecified type, not stated as uncontrolled | | | | | | -Schizoaffective disorder, unspecified | | | | | | -Other postprocedural status 02/06/2015 10:46 | | | [facility] | | | -Generalized pain | | | -Personal | | | history of transient ischemic attack (TIA), and cerebral | | | | | | infarction without residual deficits | | | | | | -Generalized pain | | | | | | -Generalized pain | | | | | | -Generalized pain | | | | | | -Generalized pain | | | | | | -Generalized pain | | | -Personal | | | history of transient ischemic attack (TIA), and cerebral | | | | | | infarction without residual deficits | | | | | | -Personal history of transient | | | ischemic attack (TIA), and cerebral | | | | | | infarction without residual deficits | | | | | | -Personal history of transient ischemic attack | | | (TIA), and cerebral | | | | | | infarction without residual deficits | | | | | | -Personal history of transient ischemic attack (TIA), and | | | cerebral | | | infarction without | | | residual deficits | | | -Personal | | | history of transient ischemic attack (TIA), and cerebral | | | | | | infarction without residual deficits | | | 02/01/2015 21:38 [facility] | | | Emergency 01/22/2015 14:00 [facility] | | | Urgent Care -Myalgia and myositis, | | | unspecified | | | -Degeneration of | | | lumbar or lumbosacral intervertebral disc | | | | | | -Degeneration of lumbar or lumbosacral intervertebral disc | | | | | | -Myalgia and myositis, | | | unspecified | | | -Degeneration of | | | lumbar or lumbosacral intervertebral disc | | | | | | -Myalgia and myositis, unspecified | | | | | | -Myalgia and myositis, unspecified | | | | | | -Myalgia and myositis, unspecified | | | | | | -Myalgia and myositis, unspecified | | | | | | -Myalgia and myositis, unspecified | | | | | | -Degeneration of lumbar or | | | lumbosacral intervertebral disc | | | | | | -Degeneration of lumbar or lumbosacral intervertebral disc | | | | | | -Degeneration of lumbar or | | | lumbosacral intervertebral disc | | | | | | -Degeneration of lumbar or lumbosacral intervertebral disc | | | 01/16/2015 12:15 [facility] | | | Urgent Care -Unspecified acquired hypothyroidism | | | | | | -Long-term (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 of other | | | medications | | | -Other chronic | | | pain | | | -Unspecified acquired | | | hypothyroidism | | | -Unspecified | | | acquired hypothyroidism | | | -Other | | | chronic pain | | | -Unspecified | | | acquired hypothyroidism | | | | | | -Unspecified acquired hypothyroidism | | | | | | -Other chronic pain | | | | | | -Long-term (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 of other medications | | | | | | -Other chronic pain | | | | | | -Other chronic pain | | | | | | -Other chronic pain | | | -Other | | | chronic pain | | | -Long-term | | | (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 of other medications | | | | | | -Long-term (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 of other medications | | | | | | -Unspecified acquired hypothyroidism | | | | | | -Unspecified acquired hypothyroidism | | | | | | -Unspecified acquired | | | hypothyroidism | | | -Long-term | | | (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 of other medications | | | | | | -Long-term (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 of other medications | | | | | | -Other chronic pain | | | | | | -Unspecified acquired hypothyroidism | | | | | | -Unspecified acquired hypothyroidism | | | | | | -Other chronic pain | | | | | | -Unspecified acquired hypothyroidism | | | | | | -Long-term (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 of other | | | medications | | | -Other chronic | | | pain | | | -Long-term (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 | | | of other medications | | | | | | -Long-term (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 of other medications | | | | | | -Other chronic pain | | | | | | -Long-term (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 of other medications | | | | | | -Long-term (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 of other | | | medications 01/07/2015 11:45 [facility] | | | Urgent [facility] -Unspecified acquired hypothyroidism | | | | | | -Unspecified acquired | | | hypothyroidism | | | -Pain in limb | | | | | | -Unspecified acquired | | | hypothyroidism | | | -Pain in limb | | | | | | -Sleep related leg cramps | | | | | | -Sleep related leg cramps | | | | | | -Pain in limb | | | | | | -Pain in limb | | | | | | -Sleep related leg cramps | | | | | | -Sleep related leg cramps | | | | | | -Unspecified acquired hypothyroidism | | | | | | -Sleep related leg cramps | | | | | | -Sleep related leg cramps | | | | | | -Pain in limb | | | -Sleep | | | related leg cramps | | | -Pain in | | | limb | | | -Unspecified acquired | | | hypothyroidism | | | -Pain in limb | | | | | | -Unspecified acquired | | | hypothyroidism | | | -Pain in limb | | | | | | -Pain in limb | | | | | | -Sleep related leg cramps | | | | | | -Pain in limb | | | | | | -Sleep related leg cramps | | | | | | -Sleep related leg cramps | | | | | | -Unspecified acquired hypothyroidism | | | | | | -Unspecified acquired hypothyroidism | | | | | | -Sleep related leg cramps | | | | | | -Unspecified acquired hypothyroidism | | | | | | -Unspecified acquired hypothyroidism | | | | | | -Pain in limb | | | | | | -Unspecified acquired hypothyroidism 12/30/2014 | | | 17:54 [facility] | | | -Obstructive sleep apnea (adult)(pediatric) | | | | | | -Long-term (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 of other medications | | | | | | -Other acquired absence of | | | organ | | | -Acquired absence of | | | both cervix and uterus | | | | | | -Schizoaffective disorder, unspecified | | | | | | -Diabetes mellitus without mention of complication, type II | | | or | | | unspecified type, not | | | stated as uncontrolled | | | | | | -Obstructive sleep apnea (adult)(pediatric) | | | | | | -Diabetes mellitus without mention of complication, | | | type II or | | | unspecified type, | | | not stated as uncontrolled | | | | | | -Myalgia and myositis, unspecified | | | | | | -Acquired absence of both cervix and uterus | | | | | | -Unspecified essential hypertension | | | | | | -Diabetes mellitus without mention of | | | complication, type II or | | | | | | unspecified type, not stated as uncontrolled | | | | | | -Schizoaffective disorder, unspecified | | | | | | -Unspecified essential hypertension | | | | | | -Schizoaffective disorder, unspecified | | | | | | -Cardiomegaly | | | | | | -Myalgia and myositis, unspecified | | | | | | -Unspecified essential hypertension | | | | | | -Diabetes mellitus without mention | | | of complication, type II or | | | | | | unspecified type, not stated as uncontrolled | | | | | | -Schizoaffective disorder, unspecified | | | | | | -Obstructive sleep apnea (adult)(pediatric) | | | | | | -Obstructive sleep apnea | | | (adult)(pediatric) | | | -Chest | | | pain, unspecified | | | -Long-term | | | (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 of other medications | | | | | | -Schizoaffective disorder, unspecified | | | | | | -Myalgia and myositis, unspecified | | | | | | -Other acquired absence of organ | | | | | | -Obstructive sleep apnea (adult)(pediatric) | | | | | | -Acquired absence of both | | | cervix and uterus | | | -Esophageal | | | reflux | | | -Myalgia and myositis, | | | unspecified | | | -Diabetes | | | mellitus without mention of complication, type II or | | | | | | unspecified type, not stated as uncontrolled | | | | | | -Long-term (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 of | | | other medications | | | -Unspecified | | | essential hypertension | | | -Chest | | | pain, unspecified | | | -Myalgia | | | and myositis, unspecified | | | | | | -Cardiomegaly | | | -Unspecified | | | essential hypertension | | | | | | -Unspecified essential hypertension | | | | | | -Obstructive sleep apnea (adult)(pediatric) | | | | | | -Schizoaffective disorder, unspecified | | | | | | -Acquired absence of both cervix and | | | uterus | | | -Esophageal reflux | | | | | | -Esophageal reflux | | | | | | -Schizoaffective disorder, unspecified | | | | | | -Schizoaffective disorder, | | | unspecified | | | -Other acquired | | | absence of organ | | | -Unspecified | | | essential hypertension | | | | | | -Cardiomegaly | | | -Schizoaffective | | | disorder, unspecified | | | | | | -Obstructive sleep apnea (adult)(pediatric) | | | | | | -Long-term (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 of other medications | | | | | | -Schizoaffective disorder, | | | unspecified | | | -Esophageal reflux | | | | | | -Obstructive sleep apnea | | | (adult)(pediatric) | | | -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 | | | | | | -Chest pain, unspecified | | | | | | -Myalgia and myositis, unspecified | | | | | | -Other acquired absence of organ | | | | | | -Long-term (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 of other medications | | | | | | -Acquired absence of both cervix and | | | uterus | | | -Cardiomegaly | | | | | | -Acquired absence of both cervix and | | | uterus | | | -Cardiomegaly | | | | | | -Chest pain, unspecified | | | | | | -Myalgia and myositis, unspecified | | | | | | -Chest pain, unspecified | | | | | | -Unspecified essential hypertension | | | | | | -Long-term (current) use of | | | other medications | | | -Long-term | | | (current) use of other medications | | | | | | -Cardiomegaly | | | | | | -Schizoaffective disorder, unspecified | | | | | | -Cardiomegaly | | | -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 | | | | | | -Chest pain, unspecified | | | | | | -Unspecified essential hypertension | | | | | | -Esophageal reflux | | | | | | -Schizoaffective disorder, unspecified | | | | | | -Diabetes mellitus without mention of complication, type II | | | or | | | unspecified type, not | | | stated as uncontrolled | | | | | | -Diabetes mellitus without mention of complication, type II or | | | | | | unspecified type, not stated as | | | uncontrolled | | | -Obstructive | | | sleep apnea (adult)(pediatric) | | | | | | -Myalgia and myositis, unspecified | | | | | | -Diabetes mellitus without mention of complication, type II | | | or | | | unspecified type, not | | | stated as uncontrolled | | | | | | -Obstructive sleep apnea (adult)(pediatric) | | | | | | -Esophageal reflux | | | | | | -Unspecified essential hypertension | | | | | | -Diabetes mellitus without mention of complication, type | | | II or | | | unspecified type, not | | | stated as uncontrolled | | | | | | -Diabetes mellitus without mention of complication, type II or | | | | | | unspecified type, not stated as | | | uncontrolled | | | -Myalgia and | | | myositis, unspecified | | | | | | -Acquired absence of both cervix and uterus | | | | | | -Long-term (current) use of other medications | | | | | | -Acquired absence of both cervix and | | | uterus | | | -Acquired absence of | | | both cervix and uterus | | | | | | -Esophageal reflux | | | | | | -Obstructive sleep apnea (adult)(pediatric) | | | | | | -Long-term (current) use of other medications | | | | | | -Esophageal reflux | | | | | | -Esophageal reflux | | | | | | -Other acquired absence of organ | | | | | | -Cardiomegaly | | | | | | -Diabetes mellitus without mention of complication, type II or | | | | | | unspecified type, not stated as | | | uncontrolled | | | -Schizoaffective | | | disorder, unspecified | | | | | | -Myalgia and myositis, unspecified | | | | | | -Other acquired absence of organ | | | | | | -Obstructive sleep apnea (adult)(pediatric) | | | | | | -Acquired absence of both cervix and uterus | | | | | | -Long-term (current) use of | | | other medications | | | -Chest pain, | | | unspecified | | | -Other acquired | | | absence of organ | | | -Diabetes | | | mellitus without mention of complication, type II or | | | | | | unspecified type, not stated as uncontrolled | | | | | | -Chest pain, unspecified | | | | | | -Diabetes mellitus without mention | | | of complication, type II or | | | | | | unspecified type, not stated as uncontrolled | | | | | | -Chest pain, unspecified | | | | | | -Esophageal reflux | | | | | | -Chest pain, unspecified | | | | | | -Esophageal reflux | | | | | | -Unspecified essential hypertension | | | | | | -Chest pain, unspecified | | | | | | -Acquired absence of both cervix and uterus | | | | | | -Long-term (current) use of other medications | | | | | | -Myalgia and myositis, unspecified | | | | | | -Long-term (current) use of | | | other medications | | | -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 | | | | | | -Cardiomegaly | | | -Myalgia and | | | myositis, unspecified | | | | | | -Cardiomegaly | | | -Cardiomegaly | | | | | | -Schizoaffective disorder, | | | unspecified | | | -Acquired absence | | | of both cervix and uterus | | | | | | -Other acquired absence of organ | | | | | | -Chest pain, unspecified | | | | | | -Other acquired absence of organ | | | | | | -Cardiomegaly | | | -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 | | | | | | -Esophageal reflux | | | -Chest | | | pain, unspecified | | | -Obstructive | | | sleep apnea (adult)(pediatric) | | | | | | -Cardiomegaly | | | -Obstructive | | | sleep apnea (adult)(pediatric) | | | | | | -Acquired absence of both cervix and uterus | | | | | | -Long-term (current) use of other medications | | | | | | -Diabetes mellitus without mention | | | of complication, type II or | | | | | | unspecified type, not stated as uncontrolled | | | | | | -Cardiomegaly | | | | | | -Chest pain, unspecified | | | | | | -Other acquired absence of organ | | | | | | -Myalgia and myositis, unspecified | | | | | | -Unspecified essential hypertension | | | | | | -Long-term (current) use of other medications | | | | | | -Esophageal reflux | | | | | | -Unspecified essential hypertension | | | | | | -Myalgia and myositis, unspecified | | | | | | -Esophageal reflux | | | | | | -Other acquired absence of organ | | | | | | -Unspecified essential hypertension | | | 12/30/2014 14:30 [facility] | | | [facility] -Cramp of limb | | | | | | -Cramp of limb | | | -Cramp of | | | limb | | | -Cramp of limb | | | | | | -Cramp of limb | | | | | | -Cramp of limb | | | | | | -Cramp of limb | | | -Cramp of | | | limb | | | -Cramp of limb | | | | | | -Cramp of limb | | | | | | -Cramp of limb | | | | | | -Cramp of limb 11/29/2014 16:15 [facility] | | | [facility] -Esophageal reflux | | | | | | -Diabetes mellitus without mention of | | | complication, type II or | | | | | | unspecified type, not stated as uncontrolled | | | | | | -Esophageal reflux | | | | | | -Diabetes mellitus without mention of complication, type II or | | | | | | unspecified type, not stated | | | as uncontrolled | | | -Backache, | | | unspecified | | | -Arthrodesis | | | status | | | -Backache, unspecified | | | | | | -Arthrodesis status | | | | | | -Arthrodesis status | | | | | | -Backache, unspecified | | | | | | -Esophageal reflux | | | | | | -Diabetes mellitus without mention of complication, type II | | | or | | | unspecified type, not | | | stated as uncontrolled | | | | | | -Arthrodesis status | | | | | | -Esophageal reflux | | | -Diabetes | | | mellitus without mention of complication, type II or | | | | | | unspecified type, not stated as uncontrolled | | | | | | -Backache, unspecified | | | | | | -Backache, unspecified | | | | | | -Backache, unspecified | | | | | | -Esophageal reflux | | | | | | -Backache, unspecified | | | | | | -Arthrodesis status | | | | | | -Backache, unspecified | | | | | | -Diabetes mellitus without mention of complication, type II or | | | | | | unspecified type, not stated as | | | uncontrolled | | | -Esophageal | | | reflux | | | -Backache, unspecified | | | | | | -Backache, unspecified | | | | | | -Backache, unspecified | | | | | | -Diabetes mellitus without mention of | | | complication, type II or | | | | | | unspecified type, not stated as uncontrolled | | | | | | -Diabetes mellitus without mention of complication, | | | type II or | | | unspecified type, | | | not stated as uncontrolled | | | | | | -Diabetes mellitus without mention of complication, type II or | | | | | | unspecified type, not stated as | | | uncontrolled | | | -Esophageal | | | reflux | | | -Esophageal reflux | | | | | | -Esophageal reflux | | | | | | -Arthrodesis status | | | | | | -Diabetes mellitus without mention of | | | complication, type II or | | | | | | unspecified type, not stated as uncontrolled | | | | | | -Esophageal reflux | | | | | | -Backache, unspecified | | | | | | -Arthrodesis status | | | -Backache, | | | unspecified | | | -Diabetes | | | mellitus without mention of complication, type II or | | | | | | unspecified type, not stated as uncontrolled | | | | | | -Esophageal reflux | | | | | | -Arthrodesis status | | | | | | -Backache, unspecified | | | | | | -Arthrodesis status | | | | | | -Arthrodesis status | | | | | | -Diabetes mellitus without mention of complication, type II or | | | | | | unspecified type, not stated as | | | uncontrolled | | | -Arthrodesis | | | status | | | -Arthrodesis status | | | | | | -Backache, unspecified | | | | | | -Esophageal reflux | | | | | | -Backache, unspecified | | | | | | -Arthrodesis status | | | | | | -Esophageal reflux | | | | | | -Backache, unspecified | | | | | | -Diabetes mellitus without mention of complication, type II or | | | | | | unspecified type, not stated as | | | uncontrolled | | | -Esophageal | | | reflux | | | -Diabetes mellitus | | | without mention of complication, type II or | | | | | | unspecified type, not stated as uncontrolled | | | | | | -Backache, unspecified | | | | | | -Diabetes mellitus without mention of | | | complication, type II or | | | | | | unspecified type, not stated as uncontrolled | | | | | | -Backache, unspecified | | | | | | -Arthrodesis status | | | | | | -Arthrodesis status | | | -Diabetes | | | mellitus without mention of complication, type II or | | | | | | unspecified type, not stated as uncontrolled | | | | | | -Backache, unspecified | | | | | | -Esophageal reflux | | | | | | -Arthrodesis status | | | | | | -Diabetes mellitus without mention of complication, | | | type II or | | | unspecified type, | | | not stated as uncontrolled | | | | | | -Arthrodesis status | | | | | | -Esophageal reflux | | | | | | -Esophageal reflux | | | | | | -Esophageal reflux | | | | | | -Arthrodesis status | | | | | | -Esophageal reflux | | | -Backache, | | | unspecified | | | -Diabetes | | | mellitus without mention of complication, type II or | | | | | | unspecified type, not stated as uncontrolled | | | | | | -Diabetes mellitus without | | | mention of complication, type II or | | | | | | unspecified type, not stated as uncontrolled | | | | | | -Arthrodesis status | | | | | | -Esophageal reflux | | | | | | -Diabetes mellitus without mention of complication, type II or | | | | | | unspecified type, not stated | | | as uncontrolled | | | -Arthrodesis | | | status | | | -Esophageal reflux | | | | | | -Diabetes mellitus without | | | mention of complication, type II or | | | | | | unspecified type, not stated as uncontrolled | | | | | | -Diabetes mellitus without mention of | | | complication, type II or | | | | | | unspecified type, not stated as uncontrolled | | | | | | -Arthrodesis status VISIT COUNT (1 YR.) Visits | | | [place] Dx Location ------ | | | --------- 1 0 [facility]. | | | [facility] 6 0 [facility]. | | | [facility] 7 0 Total | | | Note: Visits indicate total known visits. [place] Dx are the | | | number of primary diagnoses on the [facility] non-emergent dx list. | | | | | | --- [facility] has no Care Guidelines for this patient. 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
--- OUTSIDE RECORDS SUMMARY | ~2020-06-24 | XMS | Encounter Summary ---
Demographics + + + | Address | [address] | | | [place] [address] | + + + | Home Phone | | + + + | Preferred Language | Unknown | + + + | Marital Status | | + + + | Orthodox Affiliation | 1013 | + + + | Race | White | + + + | Ethnic Group | Not or | + + + Author + + + | Author | [facility] | | | and [place] | + + + | Organization | [facility] | | | and [place] | + + + | Address | Unknown | + + + | Phone | Unavailable | + + + Support + + + + + | Name | Relationship | Address | Phone | + + + + + | Araceli Sibley | ECON | [place] | | | | | [address] | | + + + + + Care Team Providers + +------+ + | Care Delivery Truck Driver Name | Role | Phone | + +------+ + | Adriano Patrick MD | PCP | | + +------+ + Reason for Visit +--------+--------+ + | Reason | Onset | Comments | | | Date | | +--------+--------+ + | Other | 07/30/ | Patient concerns | | | 2019 | | +--------+--------+ + Encounter Details +--------+ + + + + | Date | Type | Department | Care Team | Description | +--------+ + + + + | 07/30/ | Telephone | [facility] | Ashley Chávez | Other (Patient | | 2019 | | CARDIOLOGY GENESIS Abad, Network Security Administrator | concerns ) | | | | [address] | | | | | | [place] | | | | | | [address] | | | | | | [phone] | | | +--------+ + + + [...] Miscellaneous Notes Telephone Encounter - Ashley Chávez Network Security Administrator - 07/30/2019 1:40 PM PDTCalfabio norton to patient to advise of Dr. Peterson's notes. Patient stated understanding. BRODY:IRINA-SANJANA. el ephone Encounter - Ashley Chávez, Network Security Administrator - 07/30/2019 1:40 PM PDT----- Mess age [...] Thanks ----- Message ----- From: Ashley Chávez Network Security Administrator Sent: 07/30/2019 11:47 To: Desiree Peterson DO [...]
--- OUTSIDE RECORDS SUMMARY | ~2020-06-24 | XMS | Encounter Summary ---
Demographics + + + | Address | [address] | | | [place] [address] | + + + | Home Phone | | + + + | Preferred Language | Unknown | + + + | Marital Status | | + + + | Voodoo Affiliation | 1013 | + + + | Race | White | + + + | Ethnic Group | Not or | + + + Author + + + | Author | [facility] | | | and [place] | + + + | Organization | [facility] | | | and [place] | + + + | Address | Unknown | + + + | Phone | Unavailable | + + + Support + + + + + | Name | Relationship | Address | Phone | + + + + + | Araceli Sibley | ECON | [place] | | | | | [address] | | + + + + + Care Team Providers + +------+ + | Care Commuter Train Operator Name | Role | Phone | + +------+ + PCP | Unavailable | + +------+ + Encounter Details +--------+ + + + + | Date | Type | Department | Care Team | Description | +--------+ + + + + | 04/27/ | Hospital | [facility] | Sage Garza MD | | | 2001 | Encounter | HOSPITAL EMERGENCY | | | | | | CENTER [address] [place], [place] | | | | | | [address] | | | | | | [phone] | | | +--------+ + + + [...]
--- OUTSIDE RECORDS SUMMARY | ~2020-06-24 | XMS | Encounter Summary ---
Demographics + + + | Address | [address] | | | [place] [address] | + + + | Home Phone [...] [place] | | | | | [address] | | + + + + + Care Team Providers + +------+ + | Care Piggery Worker Name | Role | Phone | + +------+ + | Basim Bolanos MD | PCP | | + +------+ + Encounter Details +--------+ + + + + | Date | Type | Department | Care Team | Description | +--------+ + + + + | 04/18/ | Abstract | [facility] | [facility], | | | 2012 | | GASTROENTEROLOGY | [place] [address] | | | | | [address] | [address] | | | | | [address] [place], [place] | [place], [place] | | | | | [address] | [address] | | | | | [phone] | | | +--------+ + + + [...]
--- OUTSIDE RECORDS SUMMARY | ~2020-06-24 | XMS | Encounter Summary ---
Demographics + + + | Address | [address] [facility] [address] | | | [place] [address] | + + + | Home Phone [...] [place] | | | | | [address] | | + + + + + Care Team Providers + +------+ + | Care Customer Success Intern Name | Role | Phone | + +------+ + PCP | Unavailable | + +------+ + Encounter Details +--------+ + + + + | Date | Type | Department | Care Team | Description | +--------+ + + + + | 02/24/ | Hospital | [facility] | | | | 1997 | Encounter | [facility] | | | | | | CENTER [address] | | | | | | [place] | | | | | | [address] | | | | | | [phone] | | | +--------+ + + + [...]
--- OUTSIDE RECORDS SUMMARY | ~2020-06-24 | XMS | Encounter Summary ---
Demographics + + + | Address | [address] | | | [place] [address] | + + + | Home Phone | | + + + | Preferred Language | Unknown | + + + | Marital Status | Single | + + + | Catholic Affiliation | Unknown | + + + | Race | White | + + + | Ethnic Group | Not or | + + + Author + + + | Author | [facility] | + + + | Organization | [facility] | + + + | Address | Unknown | + + + | Phone | Unavailable | + + + Support + + + + + | Name | Relationship | Address | Phone | + + + + + | Kelsy Bautista | ECON | [address] | | | | | [place] | | | | | [address] | | + + + + + Care Team Providers + +------+ + | Care Caustic Room Operator Name | Role | Phone | [...] [id number] | | | | | | [place], [place] | | | | | | [address] | | | | | | [phone] | | | +--------+ + + + [...] | + + + + + | [facility] | [address] | [place] [address] | | | PATHOLOGY | [address] [...] Re | | | | | | [address] | | | | + + + + + + + + | Specimen | + + | | + + + + + + + | Performing | Address | City/State/Zipcode | Phone Number | | Organization | | | | + + + + + | [facility] | [address] | [place] [address] | | | PATHOLOGY | [address] [...] Re | | | | | | [address]563 | | | | + + + + + + + + | Specimen | + + | | + + + + + + + | Performing | Address | City/State/Zipcode | Phone Number | | Organization | | | | + + + + + | [facility] | [address] | [place] [address] | | | PATHOLOGY | [address] [...] Re | | | | | | [phone] | | | | + + + + + + + + | Specimen | + + | | + + + + + + + | Performing | Address | City/State/Zipcode | Phone Number | | Organization | | | | + + + + + | [facility] | [address] | [place] [address] | | | PATHOLOGY | [address] [...] Re | | | | | | [phone] | | | | + + + + + + + + | Specimen | + + | | + + + + + + + | Performing | Address | City/State/Zipcode | Phone Number | | Organization | | | | + + + + + | [facility] | [address] | [place] [address] | | | PATHOLOGY | [address] | | | + + + + + documented in this encounter Visit Diagnoses Not on filedocumented in this encounter"
--- OUTSIDE RECORDS SUMMARY | ~2020-06-24 | XMS | Encounter Summary ---
Demographics + + + | Address | [address] | | | [place] [address] | + + + | Home Phone [...] [place] | | | | | [address] | | + + + + + Care Team Providers + +------+ + | Care Division Service Manager Name | Role | Phone | + +------+ + | Hari Samson DO | PCP | | + +------+ + Reason for Referral Diagnostic/Screening (Routine) + +--------+ + + + + | Status | Reason | Specialty | Diagnoses / | Referred By | Referred To | | | | | Procedures | Contact | Contact | + +--------+ + + + + | Pending | | Radiology | Diagnoses | Nicholas, | | | Review | | | Left bundle | DO Desiree | | | | | | jo | [address] | | | | | [address] | [address] | | | | | | Procedures | [place] | | | | | | ECHO | [place], [place] | | | | | | Complete | [id number] | | | | | | | Phone: | | | | | | | [phone] | | | | | | | Fax: | | | | | | | [phone] | | + +--------+ + + + + Reason for Visit + + + | Reason | Comments | + + + | Follow-up | 6 month | + + + Encounter Details +--------+---------+ + + + | Date | Type | Department | Care Team | Description | +--------+---------+ + + + | 04/03/ | Office | [facility] | Desiree Peterson DO | Left bundle branch | | 2020 | Visit | CARDIOLOGY [place] | [address] | block (Primary Dx); | | | | [address] | [place], [place] | Benign essential | | | | [address] | [address] | HTN; New onset left | | | | [place], [place] | | bundle branch block | | | | [address] | | (LBBB); Obesity, | | | | [phone] | | Class III, BMI | | | | | | 40-49.9 (morbid | | | | | | obesity) (HCC); | | | | | | History of atrial | | | | | | fibrillation; | | | | | | History of sleep | | | | | | apnea | +--------+---------+ + + + Social History [...] + + + | Blood Pressure | 112/72 | 04/03/2020 10:07 AM | | | | | PDT | | + + + + + | Pulse | 98 | 04/03/2020 10:07 AM | | | | | PDT | | + + + + + | Temperature | - | - | | + + + + + | Respiratory Rate | - | - | | + + + + + | Oxygen Saturation | 95% | 04/03/2020 10:07 AM | | | | | PDT | | + + + + + | Inhaled Oxygen | - | - | | | Concentration | | | | + + + + + | Weight | 121.6 kg (268 lb) | 04/03/2020 10:07 AM | | | | | PDT | | + + + + + | Height | 170.2 cm (5' 7") | 04/03/2020 10:07 AM | | | | | PDT | | + + + + + | Body Mass Index | 41.97 | 04/03/2020 10:07 AM | | | | | PDT | | + + + + + documented in this encounter Progress Notes Desiree Peterson DO - 04/03/2020 10:20 AM PDT [facility] Cardiology Follow Up Note Reason for Consultation: Chest Pain Requesting Physician: Jose Ag History Obtained From: patient HISTORY OF PRESENT ILLNESS: Cardiac Problem List HTN HLD Bradycardia LBBB History CVA Non Cardiac Problem List Hepatosteatosis Obesity ROGERS DDD Schizophrenia Bipolar disorder GERD DM II Hypothyroidism The patient is a 64yo female who presents to the cardiology office for initial consultation regarding chest pain. The patient reports that she has been experiencing chest pains inter mittently since about 2010. Are described as a crushing heaviness with radiation to the lef t arm. About 3 times per week. She denies any specific aggravating factors. She reports t hat in the past she has had alleviation with sublingual nitroglycerin. The pain typically l asts about 3 to 4 minutes. Patient reports that she is an active individual and does not pa rtake in exercise. She recently got a [employer] and has been walking him more regularly. S he denies any replication of the chest pain with this activity. She does occasionally get s hortness of breath with activity. She also reports that she has had an irregular heart rate. She reports that she had Holter monitoring done in 2010 and was able to feel episodes of bigeminy while wearing it. That s he has had an increase in her palpitations lately are similar in nature to her bigeminy and irregular heart rates that she had before. I do not have the results of this Holter monitor . The palpitations occur daily and typically last a few minutes. She reports that she has had 2 prior episodes of syncope before 2016 occurred when her blood pressure was low. She wa s put on atenolol in December due to hypertension and has not noticed the palpitations as much. She admits to some lower extremity swelling but denies any orthopnea. I saw the patient on 02/22/2019. At that time, we ordered a nuclear stress test and a 1 week event monitor. Her stress test was negative for ischemia. Her event monitor was unremarka ble for any clinically significant arrhythmias. She went to the ER for another episode of c hest pressure. It was felt that this could be related to some nausea and vomiting. She con tinues to have issues with fatigue and shortness of breath when she exerts herself. She also admits to intermittent LE swelling. I saw the patient in the office on 07/19/2019. At that time, she was following up from a s yncopal episode.A 1-month event monitor was ordered. The 1-month event monitor demonstrated normal sinus rhythm with an average heart rate of 93 beats per minute. There was one episo de of atrial fibrillation lasting 26 seconds with an average heart rate of 132 beats per min muna as well as atrial and ventricular ectopy. She had 6 brief runs of supraventricular tach ycardia and one 5-beat run of nonsustained ventricular tachycardia, which was 5 beats long. Since we last saw each other, she has been about at her baseline. She has recently had he r psych meds adjusted. She does admit to some overall generalized fatigue. She denies any chest pains. She has had some issues with shortness of breath recently. She denies any pal pitations, but notices that her heart rate is above 100 quite frequently. She reports that she has had a few episodes of presyncope since we last saw each other. 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 She does walk around her apartment complex. She reports that she continues to f eel some intermittent shortness of breath and feels like her heart is racing occasionally. She denies any lower extremity swelling, orthopnea, PND. She denies any episodes of chest pain. She does have followup with Sleep Medicine. Review of Systems Constitutional: positive for fatigue. HENT: Negative for nosebleeds. Eyes: Negative for visual disturbance. Respiratory: Negative for cough and positive for shortness of breath. Cardiovascular: see HPI Gastrointestinal: Negative for nausea, vomiting, abdominal pain and blood in stool. Genitourinary: Negative for hematuria or dysuria. Musculoskeletal: Negative for myalgias, back pain. Positive for arthritis Skin: Negative for color change. Neurological: Negative for dizziness, and numbness. Hematological: Does not bruise/bleed easily. Psychiatric/Behavioral: The patient is not nervous/anxious. PAST MEDICAL & SURGICAL HISTORY Past Medical History Diagnosis Date Acute bronchitis Anemia Cerebrovascular accident (CVA) (HCC) Diabetes mellitus (HCC) Fatty liver disease, nonalcoholic 04/13/2013 Heart murmur Hemorrhoids Herniated cervical intervertebral disc Hyperlipidemia Hypertension Hypothyroidism 02/22/2019 Obstructive sleep apnea 04/13/2013 Old myocardial infarction Peptic ulcer Sinusitis T2DM (type 2 diabetes mellitus) (HCC) 04/13/2013 UTI (urinary tract infection) Past Surgical History Procedure Laterality Date BACK SURGERY herniated disc BREAST SURGERY CARDIAC CATHETERIZATION CHOLECYSTECTOMY COLONOSCOPY 2011 gastric sleeve surgery HYSTERECTOMY TONSILLECTOMY MEDICATIONS Home Medications Outpatient Encounter Prescriptions as of 04/19/2019 Medication Sig Dispense Refill acetaminophen (MAPAP) 325 MG tablet Take 325 mg by mouth every 6 (six) hours as needed for Pain. albuterol (PROVENTIL HFA;VENTOLIN HFA) 108 (90 Base) MCG/ACT inhaler Inhale 2 puffs int o the lungs every 4 (four) hours as needed for Wheezing. amitriptyline (ELAVIL) 50 MG tablet Take 50 mg by mouth nightly. atenolol (TENORMIN) 50 MG tablet Take 50 mg by mouth daily. Blood Glucose Monitoring Suppl (Light[employer] Apps[employer] FLEX SYSTEM) w/Device KIT by Does not ap ply route. budesonide-formoterol (SYMBICORT) 160-4.5 MCG/ACT inhaler Inhale 2 puffs into the lungs 2 (two) times daily. Calcium Carbonate Antacid 1000 MG tablet Take 1,000 mg by mouth 3 (three) times daily. Cholecalciferol (VITAMIN D3) 96745 units CAPS Take by mouth once a week. clonazePAM (KLONOPIN) 0.5 MG tablet Take 0.5 mg by mouth 2 (two) times daily as needed for Anxiety. cyanocobalamin (VITAMIN B-12) 1000 MCG tablet Take 1,000 mcg by mouth daily. hydrOXYzine (VISTARIL) 50 MG capsule Take 100 mg by mouth 3 (three) times daily as need ed for Itching. loperamide (IMODIUM) 2 MG capsule Take 2 mg by mouth 4 (four) times daily as needed for Diarrhea. OLANZapine (ZYPREXA) 10 MG tablet Take 10 mg by mouth nightly. PARoxetine (PAXIL) 20 MG tablet Take 20 mg by mouth every morning. Thiamine HCl (VITAMIN B-1 PO) Take by mouth. [DISCONTINUED] Calcium Carbonate-Vit D-Min (CALCIUM 1200 PO) Take by mouth. [DISCONTINUED] divalproex (DEPAKOTE) 500 MG EC tablet Take 500 mg by mouth 3 (three) ti mes daily. [DISCONTINUED] SUPER B COMPLEX/C PO Take by mouth daily. [DISCONTINUED] zaleplon (SONATA) 10 MG capsule Take 10 mg by mouth nightly. No facility-administered encounter medications on file as of 04/19/2019. Allergies Allergies Allergen Reactions Sulfa Antibiotics Hives Compazine [Prochlorperazine] Other (See Comments) Made her feel hyper/jittery Cymbalta [Duloxetine] Other (See Comments) Diaphoresis, and complete muscle weakness. Haldol [Haloperidol] Other (See Comments) Mind altering Phenergan [Promethazine] Other (See Comments) Makes her skin crawl Prozac [Fluoxetine] Other (See Comments) Mind was racing Demerol [Meperidine] Nausea and Vomiting Flexeril [Cyclobenzaprine] Confusion FAMILY HISTORY Family History Problem Relation Age of Onset Heart disease Mother Hypertension Mother Hypertension Father SOCIAL HISTORY Social History Social History Marital status: Single Spouse name: N/A Number of children: N/A Years of education: N/A Occupational History Not on file. Social History Main Topics Smoking status: Never Smoker Smokeless tobacco: Never Used Alcohol use No Drug use: No Sexual activity: Not on file Other Topics Concern Not on file Social History Narrative No narrative on file PHYSICAL EXAM Vitals: 04/03/20 1007 BP: 112/72 Pulse: 98 SpO2: 95% Weight: 121.6 kg (268 lb) Height: 1.702 m (5' 7") Physical Exam GENERAL: Obese body habitus, in no distress. Appears approximately stated age. HEENT: Normocephalic, atraumatic. EYES: PERRL, sclerae anicteric, no xanthelsasmas NECK: No JVD, lymphadenopathy, thyromegaly, bruits. Carotid pulses are 2+ bilaterally LUNGS: Clear bilaterally, with no rales, rhonchi or wheezing noted, respirations unlabored HEART: Nondisplaced PMI, regular rate and rhythm, S1, S2 normal. No murmurs, rubs or gall ops noted. ABDOMEN: Soft, nontender, no organomegaly, masses or bruits. Bowel sounds are normal in a ll 4 quadrants. EXTREMITIES: No edema. Radial pulses 2+ bilaterally. DP and PT pulses are 2+ bilaterally. SKIN: Warm and dry, capillary refill is normal, no lesions. NEUROLOGIC: Awake, alert and oriented x 3. No focal motor deficits. PSYCHIATRIC: Appropriate, affect appears normal DATA Most recent blood work from 12/26/2018 reviewed including total sodium 139, potassium 4.2, chloride 99, carbon dioxide 28, BUN 10, creatinine 0.7, BNP 28, white blood cell count 7.8, hemoglobin 14.3, hematocrit 42.7, platelet count 214. Most recent blood work from 09/28/2019 reviewed including white blood cell count 7.8, hemog lobin 14.9, hematocrit 43.8, platelet count 221, sodium 132, potassium 4.2, chloride 95, car bon dioxide 27, AST 76, ALT 76, alkaline phosphatase 134. Labs: 10/20/2019:( [facility] ER) CBC: WBC 7.1, RBC 4.93, hemoglobin 15.1, hematocrit 45.2, platel ets 204. CMP: Glucose 540, BUN 8, creatinine 0.81, GFR 71, sodium 131, potassium 4.1, chlor kelby 95, albumin 4.2, total bili 0.5, AST 54, ALT 63, alk phos 123, negative screen for all d rugs except tricyclics. Thyroid: TSH 3.39. EK02/22/19 ordered and reviewed by myself normal sinus rhythm 82 bpm, left axis deviation, minimal voltage criteria for left ventricular hypertrophy Last Echo: 05/14/19 CONCLUSIONS 1. Overall left ventricular systolic function is normal with, an EF between 65 - 70 %. 2. No regional wall motion abnormalities. 3. The right ventricle is normal in size and function. 4. The right ventricular systolic pressure (pulmonary artery systolic pressure), as measure d by Doppler, is 27.97mmHg. 10/03/15 Conclusions Marked sinus bradycardia with Premature ventricular complexes Left ventricular systolic function is normal. All four cardiac valves are normal in structure and function. There is no prior echocardiogram noted for this patient. Last stress test: 03/05/19 no perfusion defects seen. Last cath: 05/24/14 CONCLUSIONS: 1. Normal coronary arteries. 2. Moderate left ventricular diastolic dysfunction. Carotid US: AAA screening: Lower extremity US: OTHERS: 48 h Monitor 03/01/19 Impressions: 1: Sinus, as described above. 2: 3 brief runs of SVT as above 3: Rare ventricular and supraventricular ectopy 4: No AV conduction abnormalitiesdetected. 5: Noischemia detected. 6:Symptoms of "7 symptoms reported including dizziness, palpitations, chest discomfort, a nd unspecified symptoms", associated with sinus rhythm and ventricular ectopy. 08/09/19 Procedure: Continuous ambulatory ECG for the duration of 19 days, 2 hours, 30 minutes. Dur ing this recording, the underlying rhythm is sinus rhythm, the lowest heart rate was 64 BPM, the highest heart rate 141 BPM, averaging 93 BPM. There was one episode of atrial fibrilla tion lasting for minutes and 26 seconds with an average heart rate of 132 bpm. During this recording interval, 479 PACs were recorded; there were 6 episodes of supraventricular tachyc ardia the longest and fastest of which was 144 bpm for 6 beats. Also, 6330 PVCs were record ed; there was one episode of nonsustained VT which lasted 5 beats at 130 bpm. No AV conduct ion abnormalities observed. The heart rate trends did demonstrate a normal circadian pattern . In the patient's diary, there were several symptoms reported which corresponded to sinus rhythm and isolated ventricular ectopy. Impressions: 1: Sinus rhythm, as described above. 2: There was one episode of atrial fibrillation which lasted for minutes and 26 seconds wit h an average heart rate of 132 bpm 3: No AV conduction abnormality detected. 4: There were several symptoms reported which corresponded to sinus rhythm and isolated hugo tricular ectopy. Recomendations: Clinical correlation suggested. ASSESSMENT & PLAN 1.Syncope 2. Paroxysmal afib 3. HTN 4. HLD 5. Bradycardia 6. Obesity 7. ROGERS 8. DDD 9. Schizophrenia/Bipolar disorder 10. DM II 11. Hypothyroidism 12. LBBB -The patient is a 64-year-old female who presents to the cardiology office for follow up. S he had a recent nuclear stress test which was a low risk study. She wore a 1 month ambulato ry event monitor which was only notable for a 24s run of paroxysmal atrial fibrillation of w hich she was asymptomatic. Given how brief this episode of atrial fibrillation was, anticoa gulation is not indicated at this time. Recent echocardiogram demonstrated normal left ventr icular function without any significant valvular abnormalities. - Start metoprolol succinate 100 mg po bid -Follow-up in 1 year with an echo prior Thank you for allowing me to participate in the care of this patient. Primary Care Physician: Jose Peterson DO documented in this enco unter Plan of Treatment + + +--------+ + + | Name | Type | Priori | Associated Diagnoses | Order Schedule | | | | ty | | | + + +--------+ + + | ECHO Complete | Echocardiog | Routin | Left bundle branch | Expected: | | | justin | e | block | 04/03/2021, Expires: | | | | | | 10/03/2021 | + + +--------+ + + documented [...] in this encounter Results ECG 12 lead (04/03/2020 10:23 AM PDT) [...] | | | | | foundConfirmed by NICHOLAS | | | | | | DESIREE DONNELLY ([id number]) on | | | | | | [...] + + | Left bundle branch block - Primary Other left bundle branch block | + + | Benign essential HTN Essential hypertension, benign | + + | New onset left bundle branch block (LBBB) | + + | Obesity, Class III, BMI 40-49.9 (morbid obesity) (HCC) Morbid obesity | + + | History of atrial fibrillation Personal history of other diseases of circulatory | | system | + + | History of sleep apnea Personal history of other specified diseases | + + documented in this encounter
--- OUTSIDE RECORDS SUMMARY | ~2020-06-24 | XMS | Encounter Summary ---
Demographics + + + | Address | [address] | | | [place] [address] | + + + | Home Phone [...] [place] | | | | | [address] | | + + + + + Care Team Providers + +------+ + | Care Highway Worker Name | Role | Phone | + +------+ + | Adriano Patrick MD | PCP | | + +------+ + Reason for Visit + +--------+ + | Reason | Onset | Comments | | | Date | | + +--------+ + | Imaging Only | 07/10/ | 1 year x-ray | | | 2014 | | + +--------+ + Encounter Details +--------+ + + + + | Date | Type | Department | Care Team | Description | +--------+ + + + + | 07/10/ | Telephone | [facility] | Frandy Teresa, | Imaging Only (1 year | | 2014 | | NEUROSURGERY [address] | DO [address] | x-ray ) | | | | [address] | [address] [place], [place] | | | | | [place], [place] | [id number] | | | | | [address] | | | | | | [phone] | | | +--------+ + + + [...] Encounter - Shayne Aragon Cert MA - 07/10/2015 9:11 AM [facility] called to remind [facility] to complete her 1 year PO xray. Her number is not in service. I will mail a letter with the order attached. SHAYNE ARAGON documented in this encounter Plan of Treatment Not on filedocumented as of this encounter Visit Diagnoses Not on filedocumented in this encounter"
--- OUTSIDE RECORDS SUMMARY | ~2020-06-24 | XMS | Encounter Summary ---
Demographics + + + | Address | [address] [facility] [address] | | | [place] [address] | + + + | Home Phone [...] [place] | | | | | [address] | | + + + + + Care Team Providers + +------+ + | Care Claims Customer Service Representative Name | Role | Phone | + +------+ + | Natalee Andersen NP | PCP | | + +------+ + Reason for Visit Diagnostic/Screening (Routine) +--------+--------+ + + + + | Status | Reason | Specialty | Diagnoses / | Referred By | Referred To | | | | | Procedures | Contact | Contact | +--------+--------+ + + + + | Closed | | Radiology | Diagnoses | [place], | | | | | | Thoracic or | Natalee L, | | | | | | lumbosacral | [address] | | | | | | neuritis or | [address] | | | | | | | [address] | | | | | | radiculitis, | [place], | | | | | | unspecified | [place] [address] | | | | | | | Phone: | | | | | | Degeneration | [phone] | | | | | | of lumbar | Fax: | | | | | | or | [phone] | | | | | | lumbosacral | | | | | | | intervertebr | | | | | | | al disc | | | | | | | Procedures | | | | | | | MRI Lumbar | | | | | | | Spine Sacrum | | | | | | | WO Contrast | | | +--------+--------+ + + + + Encounter Details +--------+ + + + + | Date | Type | Department | Care Team | Description | +--------+ + + + + | 03/11/ | Hospital | [facility] | Natalee Andersen | Thoracic or | | 2013 | Encounter | MED CTR MRI [address] | L, [address] | lumbosacral neuritis | | | | [place], | [address] | or radiculitis, | | | | [place] [address] | [place] [address] | unspecified; | | | | [phone] | [phone] | Degeneration of | | | | | | lumbar or | | | | | | lumbosacral | | | | | | intervertebral disc | +--------+ + + + + Social [...] + + + +---------+ + + | atorvaSTATin | Take 10 mg by mouth | | 0 | | | | (LIPITOR) 10 mg | nightly. | | | | 4 | | tablet | | [...] + + + +---------+ + + | glimepiride | Take 4 mg by mouth 2 | | 0 | | | | (AMARYL) 4 mg tablet | times daily. | | | | 4 | + + + +---------+ [...] + + + +---------+ + + | Naproxen Sodium | TABS Two tablets by | | 0 | 03/31/20 | | | (ALEVE PO) | mouth twice daily as | | | 12 | 4 | | | needed | | | [...] + + + +---------+ + + | Clarita-3 Fatty | Take 1,000 mg by | [...] + + + +---------+ + + | traMADol (ULTRAM) | Take 50 mg by mouth | | 0 | 03/31/20 | | | 50 mg tablet | Daily as needed. | | | [...] documented as of this encounter Miscellaneous Notes Miscellaneous - ONBASE SCAN [facility] - 03/20/2014 12:00 AM PDT documented in this encounter Plan of Treatment Not on filedocumented as of this encounter Procedures + +--------+ + + + | Procedure Name | Priori | Date/Time | Associated Diagnosis | Comments | | | ty | | | | + +--------+ + + + | MRI LUMBAR SPINE WO | Routin | 03/11/2014 | Thoracic or | Results for this | | CONTRAST | e | 8:55 AM | lumbosacral neuritis | procedure are in the | | | | PDT | or radiculitis, | results section. | | | | | unspecified | | | | | | Degeneration of | | | | | | lumbar or | | | | | | lumbosacral | | | | | | intervertebral disc | | + +--------+ + + + documented in this encounter Results MRI Lumbar Spine wo Contrast (03/11/2014 8:55 AM PDT) + + | Specimen | + + | | + + + + + | Narrative | Performed At | + + + | EXAM: MRI LUMBAR SPINE WO CONTRAST dated 03/11/2014 8:07 AM | [facility] | | HISTORY:LUMBOSACRAL radiculitis, ddd COMPARISON: Lumbar spine | LAB | | MRI dated May 23, 2012. TECHNIQUE: Multiplanar multisequence MR | | | imaging of the lumbar spine without contrast. This is performed on | | | a 3Tesla MRI scanner. FINDINGS:There are 5 lumbar-type vertebral | | | bodies. This is either assumed for counting purposes or documented | | | on prior studies. Mild leftward curvature of the spine. | | | Progressed mild anterolisthesis of L5 in relation to S1. Endplate | | | degenerative changes at L5-S1 are predominantly Modic type II with a | | | small component of Modic type I. There is disc collapse at that | | | level. There are bilateral pars defects. There are hemangiomas in | | | L3, L5, and S1. There are no compression deformities. The conus | | | is seen terminating at the thoracolumbar junction. The visible | | | distal cord is unremarkable. T12-L1 and L1-L2 are unremarkable on | | | the sagittal sequence. The following levels are evaluated in the | | | axial plane: L2-3: Mild facet arthrosis and small facet effusions. | | | No significant narrowing of the central spinal canal or the neural | | | foramen. L3-4: Small posterior disc protrusion. Facet arthrosis | | | and small facet effusions left greater than right. No significant | | | narrowing of the central spinal canal. Mild narrowing of the neural | | | foramen. This level is unchanged. L4-5: Moderate facet | | | arthrosis left greater than right. Posterior disc protrusion is | | | mild. There is obscuration of the left L5 nerve root in the | | | subarticular recess at L4-L5. This may be due to osteophytes off the | | | facet. This is progressed. There is mild left neural foraminal | | | narrowing which is mildly progressed. No significant narrowing of | | | the right neural foramen. L5-S1: Pars defects. Disc protrusion | | | and uncovering of the disc. Close approximation to the traversing | | | S1 nerve roots bilaterally. Moderate left and right neural | | | foraminal narrowing not significantly changed. The disc | | | approximation to the traversing nerve roots is a slight interval | | | change. The visible paravertebral soft tissues and | | | intra-abdominal structures are unremarkable. There is diverticular | | | disease seen in the sigmoid colon. There is an unexplained area of | | | soft tissue intensity adjacent to the left colon. This is | | | incompletely visualized. IMPRESSION - Progressive | | | encroachment in the left subarticular recess at L4-L5. Correlate | | | with symptoms. Progressive disc approximation to the traversing S1 | | | nerve roots bilaterally L5-S1. Correlate with symptoms. | | | Unexplained and incompletely evaluated area of soft tissue like signal | | | adjacent to the descending colon. Correlate with any outside | | | institution recent imaging studies. Consider a follow-up | | | examination for problem solving. Dictated and Signed by: Tyrese Ken | | | MD Suzie Electronically signed: 03/11/2014 10:32 AM | | + + + + + | Procedure Note | + + | Juan, Rad Results In - 03/11/2014 10:36 AM PDT EXAM: MRI LUMBAR SPINE WO CONTRAST | | dated 03/11/2014 8:07 AMHISTORY:LUMBOSACRAL radiculitis, dddCOMPARISON: Lumbar spine MRI | | dated May 23, 2012.TECHNIQUE: Multiplanar multisequence MR imaging of the lumbar spine | | withoutcontrast. This is performed on a 3Tesla MRI scanner. FINDINGS:There are 5 | | lumbar-type vertebral bodies. This is either assumed forcounting purposes or documented | | on prior studies. Mild leftward curvature ofthe spine. Progressed mild | | anterolisthesis of L5 in relation to S1. Endplatedegenerative changes at L5-S1 are | | predominantly Modic type II with a smallcomponent of Modic type I. There is disc | | collapse at that level. There arebilateral pars defects. There are hemangiomas in L3, | | L5, and S1. There are nocompression deformities. The conus is seen terminating at the | | thoracolumbarjunction. The visible distal cord is unremarkable. T12-L1 and L1-L2 | | areunremarkable on the sagittal sequence.The following levels are evaluated in the axial | | plane:L2-3: Mild facet arthrosis and small facet effusions. No significant narrowingof | | the central spinal canal or the neural foramen.L3-4: Small posterior disc protrusion. | | Facet arthrosis and small faceteffusions left greater than right. No significant | | narrowing of the centralspinal canal. Mild narrowing of the neural foramen. This level | | is unchanged. L4-5: Moderate facet arthrosis left greater than right. Posterior | | discprotrusion is mild. There is obscuration of the left L5 nerve root in | | thesubarticular recess at L4-L5. This may be due to osteophytes off the facet. This is | | progressed. There is mild left neural foraminal narrowing which ismildly progressed. | | No significant narrowing of the right neural foramen. L5-S1: Pars defects. Disc | | protrusion and uncovering of the disc. Closeapproximation to the traversing S1 nerve | | roots bilaterally. Moderate left andright neural foraminal narrowing not significantly | | changed. The discapproximation to the traversing nerve roots is a slight interval | | change. The visible paravertebral soft tissues and intra-abdominal structures | | areunremarkable. There is diverticular disease seen in the sigmoid colon. Thereis an | | unexplained area of soft tissue intensity adjacent to the left colon. Thisis | | incompletely visualized.IMPRESSION - Progressive encroachment in the left subarticular | | recess at L4-L5. Correlatewith symptoms.Progressive disc approximation to the | | traversing S1 nerve roots bilaterallyL5-S1. Correlate with symptoms.Unexplained and | | incompletely evaluated area of soft tissue like signal adjacentto the descending colon. | | Correlate with any outside institution recent imagingstudies. Consider a follow-up | | examination for problem solving.Dictated and Signed by: Tyrese Larsen MD | | Electronically signed: 03/11/2014 10:32 AM | |L5-S1: Pars defects. Disc protrusion and uncovering of the disc. Close | |approximation to the traversing S1 nerve roots bilaterally. Moderate left and | |right neural foraminal narrowing not significantly changed. The disc | |approximation to the traversing nerve roots is a slight interval change. | | | |The visible paravertebral soft tissues and intra-abdominal structures are | |unremarkable. There is diverticular disease seen in the sigmoid colon. There | |is an unexplained area of soft tissue intensity adjacent to the left colon. This | |is incompletely visualized. | | | |IMPRESSION - | | | |Progressive encroachment in the left subarticular recess at L4-L5. Correlate | |with symptoms. | | | |Progressive disc approximation to the traversing S1 nerve roots bilaterally | |L5-S1. Correlate with symptoms. | | | |Unexplained and incompletely evaluated area of soft tissue like signal adjacent | |to the descending colon. Correlate with any outside institution recent imaging | |studies. Consider a follow-up examination for problem solving. | | | |Dictated and Signed by: Tyrese Larsen MD | | Electronically signed: 03/11/2014 10:32 AM | + + + +---------+ + + | Performing | Address | City/State/Zipcode | Phone Number | | Organization | | | | + +---------+ + + | [facility] | | | [phone] | + +---------+ + + | [facility] | | | [phone] | + +---------+ + + documented in this encounter Visit Diagnoses + + | Diagnosis | + + | Thoracic or lumbosacral neuritis or radiculitis, unspecified | + + | Degeneration of lumbar or lumbosacral intervertebral disc | + + documented in this encounter"
--- OUTSIDE RECORDS SUMMARY | ~2020-06-24 | XMS | Encounter Summary ---
Demographics + + + | Address | [address] [facility] [address] | | | [place] [address] | + + + | Home Phone [...] + + + | Author | [facility] | | | and [place] | + + + | Organization | [facility] | | | and [place] | + + + | Address | Unknown | + + + | Phone | Unavailable | + + + Support + + + + + | Name | Relationship | Address | Phone | + + + + + | Araceli Sibley | ECON | [place] | | | | | [address] | | + + + + + Care Team Providers + +------+ + | Care Car Groomer Name | Role | Phone | + +------+ + | Natalee Andersen NP | PCP | | + +------+ + Reason for Visit + +--------+ + | Reason | Onset | Comments | | | Date | | + +--------+ + | Medication Refill | 09/26/ | | | | 2013 | | + +--------+ + Encounter Details +--------+--------+ + + + | Date | Type | Department | Care Team | Description | +--------+--------+ + + + | 09/26/ | Refill | [facility] | Frandy Teresa, | Medication Refill | | 2013 | | NEUROSURGERY [address] | DO [address] | | | | | [address] [facility] [address] | [address] [place], [place] | | | | | [place], [place] | [id number] | | | | | [address] | | | | | | [phone] | | | +--------+--------+ + + + [...] this encounter Miscellaneous Notes Telephone Encounter - Bhakti Harrison - 09/26/2014 4:06 PM PSTID VERIFIED AT THIS TIME . PATIENT PICKED UP RX Telephone Encounter - Megan Schreiber RN - 09/26/2014 3:17 PM PSTCalled pt to inform that rx refill has been authorized and ready to be picked up. Pt will come today. rx refill up at [facility] desk elephone Encou nter - Megan Schreiber RN - 09/26/2014 2:46 PM PSTPatricia called to request a refill on her norco . Pain is located at lowered back, described as aching/throbbing pain. Currentl y taking 1-3 tabs per day. Pt stated that she forgot her pain medications at home, she is s pending the night in town r/t early appt tomorrow. LR 08/26/14. Pt coming tomorrow for 3 mo p o appt with Dr. Teresa. S/p MIS L5-S1 TRANSFORAMINAL LUMBAR INTERBODY FUSION on 07/02/14 documented in this enco unter Plan of Treatment Not on filedocumented as of this encounter Visit Diagnoses Not on filedocumented in this encounter"
--- OUTSIDE RECORDS SUMMARY | ~2020-06-24 | XMS | Encounter Summary ---
Demographics + + + | Address | [address] [facility] | | | [place] [address] | + + + | Home Phone [...] + + + | Author | [facility] | | | and [place] | + + + | Organization | [facility] | | | and [place] | + + + | Address | Unknown | + + + | Phone | Unavailable | + + + Support + + + + + | Name | Relationship | Address | Phone | + + + + + | Araceli Sibley | ECON | [place] | | | | | [address] | | + + + + + Care Team Providers + +------+ + | Care Bingo Worker Name | Role | Phone | [...] | | | spondylolist | | [address] | | | | | hesis | | [place], | | | | | Spinal | | [place] [address] | | | | | stenosis, | | Phone: | | | | | lumbar | | [phone] | | | | | region, | | Fax: | | | | | without | | [phone] | | | | | neurogenic | [...] + | 07/02/ | Anesthesia | [facility] | Zen Mccord | | | 2013 | Event | MED CTR OR INTRA OP | MD Ksenia [address] | | | | | [address] | [address] [place] | | | | | [place] | [address] | | | | | [address] | | | | | | [phone] | | | +--------+ + + + [...] + + | | 1 | an juliette now | In Room | | | [...] Easy mask AW. DL times one with mac 3 easy view | | | 2 | Intubation | | | | 2 | | | | | 6 | | | +----+---+ + + | | 1 | AN Bite | | | | 2 | Block | | | | 2 | | | | | 7 | | | +----+---+ + + | | 1 | Hickman | | | | 2 | 43-degrees | | | | 3 | | | | | 1 | | | +----+---+ + + | | 1 | Hickman off | | | | 4 | [...] + + | | 1 | an juliette now | Put CPAP on patient sats [...] | ONLY] | Chemistry, Coagulation, Blood | Juliette Butler RN | Germaine Louis RN | [...] Bank; | 07/02/14 1049 by | 07/03/14 09 by | | ONLY] | 07/03/14; 899 | Doris Jeffries | Maria T Neff [...] 2012 by | | only - | 2011 | Bailey Tsai RN | Germaine Louis [...] EVALUATION Cindy Arndt 58 y.o. female 1955 [id number] Procedure: Procedure(s):MIS L5-S1 TRANSFORAMINAL LUMBAR INTERBODY FUSION [...] by Zen Mccord MD 07/02/2014 14:55 [facility] nesthesia Preproc edure Evaluation - Zen Mccord MD - 07/02/2014 8:36 AM PDTFormatting of this note m ight be different from the original. ANESTHESIA PREANESTHESIA EVALUATION Cindy Arndt 58 y.o. female 1955 [id number] Scheduled procedure LAMINECTOMY PLIF/TLIF INSTRUMENTATION [184] - MIS L5-S1 TRANSFORAMINAL LUMBAR INTERBODY FUSION Medical history, anesthesia, medications, allergy histories reviewed. ECG reviewed. Labs reviewed. ROS / Med History Ane (+) PONV. NPO status verified. CV (+) hypertension.(-) CAD, past HI, CHF, congenital heart disease, pulmonary hypertension, p [...] 14 12:25 | | | | | e 07/02/14 at 1225, Anesthesia | | PM [...]
--- OUTSIDE RECORDS SUMMARY | ~2020-06-24 | XMS | Encounter Summary ---
Demographics + + + | Address | [address] [facility] [address] | | | [place] [address] | + + + | Home Phone [...] [place] | | | | | [address] | | + + + + + Care Team Providers + +------+ + | Care Superintendent Stevedoring Name | Role | Phone | + +------+ + | Natalee Andersen NP | PCP | | + +------+ + Encounter Details +--------+ + + + + | Date | Type | Department | Care Team | Description | +--------+ + + + + | 06/25/ | Hospital | [facility] | Frandy Teresa, | Acquired | | 2014 | Encounter | MED CTR XRAY [address] | DO [address] | spondylolisthesis | | | | [place] | [address] [place], [place] | | | | | [place] [address] | [address] | | | | | [phone] | | | +--------+ + + + [...] + + + +---------+ + + | [place]-3 Fatty | Take 1,000 mg by | [...]
--- OUTSIDE RECORDS SUMMARY | ~2020-06-24 | XMS | Encounter Summary ---
Demographics + + + | Address | [address] [facility] | | | [place] [address] | + + + | Home Phone [...] [place] | | | | | [address] | | + + + + + Care Team Providers + +------+ + | Care Retail Manager In Training Name | Role | Phone | + [...] + + | 05/29/ | Procedure | [facility] | Dora De La Torre | Left bundle branch | | 2020 | visit | CARDIOLOGY [place] | [address] | block; Paroxysmal | | | | [address] | [address] | A-fib ([facility]); | | | | [address] | [place] [address] | Syncope, unspecified | | | | [place], [place] | [phone] | syncope type; Rapid | | | | [address] | | palpitations | | | | [phone] | | | +--------+ + + + [...] information discussed. Instructions given and understood. 12:08pm [id number] signed by Cindy Nihcolas CMA at 05/29/2020 12:12 PM PDTdocument ed [...]
--- OUTSIDE RECORDS SUMMARY | ~2020-06-24 | XMS | Encounter Summary ---
Demographics + + + | Address | [address] [facility] | | | [place] [address] | + + + | Home Phone [...] [place] | | | | | [address] | | + + + + + Care Team Providers + +------+ + | Care Tap Puller Name | Role | Phone | + [...] | | | | | pain, | [place], [place] | | | | | | bilateral | [address] | | | | | | Degenerative | Phone: | | | | | | disc | [phone] | | | | | | disease, | Fax: | | | | | | lumbar | [phone] | | | | | | Spinal [...] [address] | [address] [place], [place] | (Primary Dx); Knee | | | | [place] | [address] | pain, bilateral; | | | | [address] | | DEGENERATIVE DISC | | | | [phone] | | DISEASE, LUMBAR | | | [...]
--- OUTSIDE RECORDS SUMMARY | ~2020-06-24 | XMS | Encounter Summary ---
Demographics + + + | Address | [address] [facility] | | | [place] [address] | + + + | Home Phone [...] [place], [place] | | | | | [address] | | + + + + + Care Team Providers + +------+ + | Care Bug Trimmer Name | Role | Phone | + +------+ + PCP | Unavailable | + +------+ + Encounter Details +--------+ + + + + | Date | Type | Department | Care Team | Description | +--------+ + + + + | 06/23/ | Hospital | [facility] | | | | 1999 | Encounter | MED CTR GENERIC OP | | | | | | CONV DEPT [address] | | | | | | [place], | | | | | | [place] [address] | | | | | | [phone] | | | +--------+ + + + [...]
--- OUTSIDE RECORDS SUMMARY | ~2020-06-24 | XMS | Encounter Summary ---
Demographics + + + | Address | [address] [facility] | | | [place] [address] | + + + | Home Phone [...] + + | Author | [facility] | | | and [place] | + + + | Organization | [facility] | | | and [place] | + + + | Address | Unknown | + + + | Phone | Unavailable | + + + Support + + + + + | Name | Relationship | Address | Phone | + + + + + | Araceli Sibley | ECON | [place], [place] | | | | | [address] | | + + + + + Care Team Providers + +------+ + | Care Stitching Machine Setter Name | Role | Phone | + +------+ + PCP | Unavailable | + +------+ + Encounter Details +--------+ + + + + | Date | Type | Department | Care Team | Description | +--------+ + + + + | 04/16/ | Hospital | [facility] | | | | 1997 | Encounter | MED CTR XRAY [address] | | | | | | [place] | | | | | | [place] [address] | | | | | | [phone] | | | +--------+ + + + [...]
--- OUTSIDE RECORDS SUMMARY | ~2020-06-24 | XMS | Encounter Summary ---
Demographics + + + | Address | [address] [facility] [address] | | | [place] [address] | + + + | Home Phone [...] [place] | | | | | [address] | | + + + + + Care Team Providers + +------+ + | Care Matchbook Maker Name | Role | Phone | + +------+ + PCP | Unavailable | + +------+ + Encounter Details +--------+ + + + + | Date | Type | Department | Care Team | Description | +--------+ + + + + | 02/02/ | Hospital | [facility] | | | | 1997 | Encounter | MED CTR EMERGENCY | | | | | | CENTER [address] | | | | | | [place] | | | | | | [address] | | | | | | [phone] | | | +--------+ + + + [...]
--- OUTSIDE RECORDS SUMMARY | ~2020-06-24 | XMS | Encounter Summary ---
Demographics + + + | Address | [address] [facility] [address] | | | [place] [address] | + + + | Home Phone [...] [place] | | | | | [address] | | + + + + + Care Team Providers + +------+ + | Care Print Project Manager Name | Role | Phone | + +------+ + | Natalee Andersen NP | PCP | | + +------+ + Encounter Details +--------+ + + + + | Date | Type | Department | Care Team | Description | +--------+ + + + + | 06/26/ | Hospital | [facility] | Heather Cordero PT | | | 2013 | Encounter | MED CTR ACUTE | [address] | | | | | PHYSICAL THERAPY | [place] | | | | | [address] [place] | [address] | | | | | [place] [address] | | | | | | [phone] | | | +--------+ + + + [...] + + + +---------+ + + | [place]-3 Fatty | Take 1,000 mg by | [...]
--- OUTSIDE RECORDS SUMMARY | ~2020-06-24 | XMS | Encounter Summary ---
Demographics + + + | Address | [address] [facility] [address] | | | [place] [address] | + + + | Home Phone [...] [place] | | | | | [address] | | + + + + + Care Team Providers + +------+ + | Care Guide Name | Role | Phone | + +------+ + | Natalee Andersen NP | PCP | | + +------+ + Encounter Details +--------+---------+ + + + | Date | Type | Department | Care Team | Description | +--------+---------+ + + + | 06/25/ | Surgery | [facility] | Frandy Teresa, | Canceled | | 2013 | | MED CTR OR INTRA OP | DO [address] | PROCEDURE NOT | | | | [address] | [address] [place], [place] | PERFORMED | | | | [place], [place] | [address] | | | | | [address] | | | | | | [phone] | | | +--------+---------+ + + + [...] + + + +---------+ + + | Conway-3 Fatty | Take 1,000 mg by | [...] this en counter H&P Notes ONBRUCE ABREU [facility] - 06/21/2014 12:00 AM PDT 14 [...] MD at 06/26/2014 8:05 AM PDTONBRUCE ABREU [facility] - 06/26 12:00 AM PDT NBRUCE ZAMORA N [facility] - 06/26/2014 12:00 AM PDT NBASE SCAN [facility] - 06/12/2014 12:00 AM PDTElectronically signed by Mariah Schulte at 06/12 7:30 AM PDTONBASE SCAN [facility] - 06/11/2014 12:00 AM PDT documented in this encounter Miscellaneous Notes Miscellaneous - ONBASE SCAN [facility] - 06/26/2014 12:00 AM PDT lan [...] stenosis, lumbar region, without neurogenic claudication ). Talent Acquisition Consultant visit is in response to an electronic spiritual care consult request. Patient wa s resting comfortably in bed; she was attended by her mom and dad - both sate nearby and see med very attentive and supportive. Cindy is Denominational, attends [employer], and is strong in her rangel. She is excited about taking care of her back problem and fe els very secure in Dr. Teresa's care. She welcomed prayer, and expressed appreciation for th visit. Follow up with regular visits, emotional and spiritual support. iscellaneo us - ONBASE SCAN [facility] - 06/25/2014 12:00 AM PDTElectronically signed [...] | non- | FILTRATION | mL/min/1.73m2 | [facility] | | | Guinean | RATE,ESTIMATED | | MEDICAL | | | | mL/min/1.39i0Limj than | | CENTER - | | [...] | | | | | mg/dL | [facility] | | | | | | MEDICAL | | | | | | CENTER - | | | | | | LABORATORY | | + + + + + + | BUN/Creatin | 20.0 | | [facility] | | | ine Ratio | | | [facility] | | | | | | [...] + | [facility] | [address] | [place] | [phone] | | [facility] | | [address] | | | - LABORATORY | | | | + + + + + | [facility] | [address] | [place] | | | [facility] | | [address], [place] | | | - LABORATORY | [...] + | [facility] | [address] | [place], [place] | [phone] | | [facility] | | [address] | | | - LABORATORY | | | | + + + + + | [facility] | [address] | [place], [place] | | | [facility] | | [address] | | | - LABORATORY | [...] | | Time | | seconds | STLa ISACC | | | | [...] + | [facility] | [address] | [place] | [phone] | | [facility] | | [address] | | | - LABORATORY | | | | + + + + + | [facility] | [address] | [place] | | | [facility] | | [address] | | | - LABORATORY | | | | + + + + + Type and Screen (06/25/2014 1:58 PM PDT) + + + + + + | Component | Value | Ref Range | Performed | Pathologist | | | | | At | Signature | + + + + + + | ABO | A | | [place] | | | | | [...] [address] | [place] | | | [facility] | | [address] | | | - BLOOD BANK | [...] + | [facility] | [address] | [place] | [phone] | | [facility] | | [address] | | | - LABORATORY | | | | + + + + + | [facility] | [address] | [place], [place] | | | [facility] | | [address] | | | - LABORATORY | [...]
--- OUTSIDE RECORDS SUMMARY | ~2020-06-24 | XMS | Encounter Summary ---
Demographics + + + | Address | [address] [facility] [address] | | | [place] [address] | + + + | Home Phone [...] [place] | | | | | [address] | | + + + + + Care Team Providers + +------+ + | Care Product Delivery Specialist Name | Role | Phone | [...] + + | 06/27/ | Office | [facility] | Yecenia Richardson, | Hypertension, | | 2019 | Visit | CARDIOLOGY [place] | MD Nitin RODRIGUES | unspecified type | | | | [address] | [place], [place] | (Primary Dx); | | | | [place] [address] | [address] | Bradycardia | | | | [place] | | | | | | [address] | | | | | | [phone] | | | +--------+---------+ + + + [...] urgent basis. Had an appointment today in [facility]. She has been feeling dizzy as of [...] Take by mouth. Blood Glucose Monitoring Suppl (Cennox VERIO FLEX SYSTEM) w/Device KIT by Does [...] mg by mouth Daily. Cholecalciferol (VITAMIN D-3) 22006 units CAPS Take 50,000 Units by mouth [...] tablet Take 10 mg by mouth nightly. [place]-3 Fatty Acids (FISH OIL CONCENTRATE) 1000 MG [...] PDTdocumented in this encounter Plan of Treatment + +------+--------+ + + [...]
--- OUTSIDE RECORDS SUMMARY | ~2020-06-24 | XMS | Encounter Summary ---
Demographics + + + | Address | [address] [facility] | | | [place] [address] | + + + | Home Phone [...] [place] | | | | | [address] | | + + + + + Care Team Providers + +------+ + | Care Valve Repairer Name | Role | Phone | [...] + + | 03/26/ | Telephone | [facility] | Thierry Fry | Medication Prior | | 2014 | | MEDICINE [address] [place] [address] | MD Lisa [address] | Authorization | | | | [employer], | [employer] [place] | (Dexilant 60Mg) | | | | [place] [address] | [address] | | | | | [phone] | | | +--------+ + + + [...] this. Dexilant discontinued.Electron ically signed by Zelda Corrales, RN at 04/03/2015 12:32 PM PDTTelephone Encounter [...] were not received I contacted insurance ID# [id number] This has been denied. The patient must try and fail 2 of the following Omeprazole Protonix Prevacid Nexium Please advise elepho ne Encounter - Saba Acosta Cert MA - 03/26/2015 1:32 PM PDTCalled and requested a prior authorization Requested for via fax from [employer]. Prior auth medication Dexilant 60MgElectronically signed by Faustina Aquino MA at 03/26 1:52 PM PDTdocumented in this encounter Plan of Treatment Not on filedocumented as of this encounter Visit Diagnoses Not on filedocumented in this encounter"
--- OUTSIDE RECORDS SUMMARY | ~2020-06-24 | XMS | Encounter Summary ---
Demographics + + + | Address | [address] [facility] | | | [place] [address] | + + + | Home Phone [...] [place] | | | | | [address] | | + + + + + Care Team Providers + +------+ + | Care Healthcare Consultant Name | Role | Phone | [...] + + | 04/05/ | Telephone | [facility] | [facility], | Results | | 2012 | | GASTROENTEROLOGY | FORTUNATO Thomas [address] | | | | | [address] [place] | [address] | | | | | [address] [place] | [place], [place] | | | | | [address] | [address] | | | | | [phone] | | | +--------+ + + + [...]
--- OUTSIDE RECORDS SUMMARY | ~2020-06-24 | XMS | Encounter Summary ---
Demographics + + + | Address | [address] [facility] | | | [place] [address] | + + + | Home Phone [...] [place] | | | | | [address] | | + + + + + Care Team Providers + +------+ + | Care Board Layer Name | Role | Phone | + +------+ + PCP | Unavailable | + +------+ + Encounter Details +--------+ + + + + | Date | Type | Department | Care Team | Description | +--------+ + + + + | 12/27/ | Hospital | [facility] | | | | 1995 | Encounter | MED CTR LABORATORY | | | | | | [address] | | | | | | [place] | | | | | | [address] | | | | | | [phone] | | | +--------+ + + + [...]
--- OUTSIDE RECORDS SUMMARY | ~2020-06-24 | XMS | Encounter Summary ---
Demographics + + + | Address | [address] [facility] | | | [place] [address] | + + + | Home Phone [...] [place] | | | | | [address] | | + + + + + Care Team Providers + +------+ + | Care Railroad Firer/Fireman Name | Role | Phone | + +------+ + PCP | Unavailable | + +------+ + Encounter Details +--------+ + + + + | Date | Type | Department | Care Team | Description | +--------+ + + + + | 02/28/ | Hospital | [facility] | Deon Gonzales | | | 2011 | Encounter | MED CTR SLEEP | MD [address] | | | | | EVA [address] | [address] [place] | | | | | [place], [place] | [place] [address] | | | | | [address] | [phone] | | | | | [phone] | | | +--------+ + + + [...] - 02/29/2012 2:36 PM PDTDATE: 02/29/2012 cc: [facility] Sleep Center Deon Gonzales Jr., MD, [facility] POSITIVE PRESSURE TITRATION STUDY CLINICAL INFORMATION: This [...] the patient scored 18 points on the [place] Sleepiness Scale, which endorses a severe degree [...] advised. Deon Gonzales Jr., MD, FAASM Diplomate [place] Board of Internal Medicine Diplomate in Sleep Medicine Manufacturing Development Engineer, Delicia [facility] Sleep Disorders Center Clinical Leaflet Or Newspaper Deliverer [facility], [facility] JOB #: [id number] EXT JOB #:[id number] EDITED: 03/03/2012 07:26 <Electronically Signed by Deon Gonzales MD> 03/03/12 0848 documented in this encounter Plan of Treatment Not on filedocumented as of this encounter Visit Diagnoses Not on filedocumented in this encounter"
--- OUTSIDE RECORDS SUMMARY | ~2020-06-24 | XMS | Encounter Summary ---
Demographics + + + | Address | [address] [facility] | | | [place] [address] | + + + | Home Phone [...] [place] | | | | | [address] | | + + + + + Care Team Providers + +------+ + | Care Utility Arborist Name | Role | Phone | + [...] + + | 03/06/ | Office | [facility] | Deon Gonzales | ROGERS (obstructive | | 2012 | Visit | SLEEP DISORDER [address] | MD [address] | sleep apnea) | | | | [address] [place] | [address] [place] | (Primary Dx); | | | | [place] [address] | [place] [address] | Sleepiness | | | | [phone] | [phone] | | | | | | | [...] differen t from the original. 03/06/13 [address] [place] Sleepiness Scale Sitting and reading 3 Watching [...] minutes in traffic 0 Total score 18 eon Gonzales Jr., MD - 03/06/2013 9:49 AM PDTFormatting [...] mg tablet, Take 10 mg by mouth moustapha mckeon., Disp: , Rfl: ; Magnesium 250 MG [...] by mouth Daily., Disp: , Rfl: ; [place]-3 Fatty Acids (FISH OIL CONCENTRATE) 1000 MG [...] tibia 2000 RIGHT Cholecystectomy 1997 Mastectomy, partial 1996 Hysterectomy [...] have discussed this with her and am isamar landagesting that we increase the number of hours [...] th is encounter Miscellaneous Notes M[facility] - 03/06/2013 12:00 AM PDT iscellaneous - [facility] - 03/06/2013 12:00 AM PDTEle [...]
--- OUTSIDE RECORDS SUMMARY | ~2020-06-24 | XMS | Encounter Summary ---
Demographics + + + | Address | [address] [facility] | | | [place] [address] | + + + | Home Phone [...] [place], [place] | | | | | [address] | | + + + + + Care Team Providers + +------+ + | Care Erp Developer Name | Role | Phone | + +------+ + PCP | Unavailable | + +------+ + Encounter Details +--------+ + + + + | Date | Type | Department | Care Team | Description | +--------+ + + + + | 02/24/ | Hospital | [facility] | | | | 1997 - | Encounter | MED CTR GENERIC PSY | | | | | | CONV DEPT [address] | | | | 02/26/ | | [place], | | | | 1997 | | [place] [address] | | | | | | [phone] | | | +--------+ + + + [...]
--- OUTSIDE RECORDS SUMMARY | ~2020-06-24 | XMS | Encounter Summary ---
Demographics + + + | Address | [address] [facility] | | | [place] [address] | + + + | Home Phone [...] [place] | | | | | [address] | | + + + + + Care Team Providers + +------+ + | Care Lap Machine Operator Name | Role | Phone [...] + + | 08/15/ | Documentati | [facility] | Katharine Moncada, | Other (urgent | | 2019 | on | CARDIOLOGY GENESIS | Technologist | report) | | | | [address] | | | | | | [place] | | | | | | [address] | | | | | | [phone] | | | +--------+ + + + [...]
--- OUTSIDE RECORDS SUMMARY | ~2020-06-24 | XMS | Encounter Summary ---
Demographics + + + | Address | [address] [facility] | | | [place] [address] | + + + | Home Phone [...] [place] | | | | | [address] | | + + + + + Care Team Providers + +------+ + | Care Mica Washer Gluer Name | Role | Phone | + +------+ + | Hari Samson DO | PCP | | + +------+ + Reason for Visit + +--------+ + | Reason | Onset | Comments | | | Date | | + +--------+ + | Cardiology | 06/05/ | | | Appointment | 2020 | | + +--------+ + Encounter Details +--------+ + + + + | Date | Type | Department | Care Team | Description | +--------+ + + + + | 06/05/ | Telephone | [facility] | Dora De La Torre | Cardiology | | 2020 | | CARDIOLOGY [place] | CAROLINE Mendez [address] | Appointment | | | | [address] | [address] | | | | | [address] | [place] [address] | | | | | [place] | [phone] | | | | | [address] | | | | | | [phone] | | | +--------+ + + + [...] this encounter Miscellaneous Notes Telephone Encounter - BrittDora, SENIOR JAVA PROGRAMMER - 06/05/2020 1:08 PM MELANIE Cindy called kristin garcia and notified my medical sales specialist that she had thrown up all over her monitor, and then had taken it off, and actually throwing it away, so the monitor has been lost. I contacted her PCP, Dr. Chloe Richter, who discussed with me due to Cindy's ongoing psy chiatric issues, that she has a standing walk-in clinic appointment with her on an d Sundays, and to let her know if she needed specific issues addressed. I discussed with Dr. Richter I would not be placing another monitor on her due to her diffi culty in both wearing it, and now throwing it away. I am canceling my follow-up appointment with her, and I discussed with Dr. Richter that if she did need to be seen back, that Dr. Richter should let me know personally that she needs t o be seen to avoid the abuse of our limited clinic resources with me being 1 of the few prov iders in [place] currently. Dr. Richter is in agreement with this plan, and we also communicated it to Cindy, so she knows that Dr. Richter will continue to monitor her on twice weekly basis documented in this encounter Plan of Treatment Not on filedocumented as of this encounter Visit Diagnoses Not on filedocumented in this encounter"
--- OUTSIDE RECORDS SUMMARY | ~2020-06-24 | XMS | Encounter Summary ---
Demographics + + + | Address | [address] [facility] | | | [place] [address] | + + + | Home Phone [...] [place] | | | | | [address] | | + + + + + Care Team Providers + +------+ + | Care Transition Rn Name | Role | Phone | [...] + + | 09/10/ | Documentati | [facility] | Katharine Moncada, | Other (urgent | | 2019 | on | CARDIOLOGY GENESIS | Technologist | report) | | | | [address] | | | | | | [place] | | | | | | [address] | | | | | | [phone] | | | +--------+ + + + [...]
--- OUTSIDE RECORDS SUMMARY | ~2020-06-24 | XMS | Encounter Summary ---
Demographics + + + | Address | [address] [facility] | | | [place] [address] | + + + | Home Phone [...] [place] | | | | | [address] | | + + + + + Care Team Providers + +------+ + | Care Film And Video Editor Name | Role | Phone | + +------+ + | Natalee Andersen NP | PCP | | + +------+ + Reason for Visit +--------+--------+ + | Reason | Onset | Comments | | | Date | | +--------+--------+ + | Other | 05/02/ | | | | 2013 | | +--------+--------+ + Encounter Details +--------+ + + + + | Date | Type | Department | Care Team | Description | +--------+ + + + + | 05/02/ | Telephone | [facility] | Frandy Teresa, | Other | | 2013 | | NEUROSURGERY [address] | DO [address] | | | | | [address] | [address] [place], [place] | | | | | [place], [place] | [id number] | | | | | [address] | | | | | | [phone] | | | +--------+ + + + [...] Encounter - Shayne Aragon Cert MA - 05/08/2014 8:25 AM PDTRichard called Cindy zaho in and was able to reach her. She states she no longer needs the Rx for the toilet seat bill se as she was able to borrow one from a friend. She states she had a fall last week and landed on her bottom. She has had an increase in l ow back pain since this happened. She has tried resting in her recliner with her feet up, w hich typically helps her pain, but it has not in this case. She has started to have to take Hydrocodone for the pain, which she was not taking before the fall. She states she is havi ng more frequent numbness and weakness in her legs now. She has not had any loss of bowel o r bladder control since her fall. She is scheduled for surgery on 06/25/14. Shayne elephone Shayne Barr Cert MA - 05/02/2014 1:30 PM PDTLeft message for Pat to find out wh ere she would like her Rx for the toilet seat riser sent to. SHAYNE ARAGON elephone Danish jack - Frandy Teresa DO - 05/02/2014 12:47 PM PDTLets just do DME for toilet seat riser plemarisel se. Thanks. elephone Shayne Gibson Cert MA - 05/02/2014 11:57 AM PDTPatricia was wondering if she could get a letter for her landlord to have a taller toilet installed. Please advise. SHAYNE ARAGON documented in this encounter Plan of Treatment Not on filedocumented as of this encounter Visit Diagnoses Not on filedocumented in this encounter"
--- OUTSIDE RECORDS SUMMARY | ~2020-06-24 | XMS | Encounter Summary ---
Demographics + + + | Address | [address] [facility] | | | [place] [address] | + + + | Home Phone [...] [place], [place] | | | | | [address] | | + + + + + Care Team Providers + +------+ + | Care Salesperson [employer] Name | Role | Phone | + +------+ + PCP | Unavailable | + +------+ + Encounter Details +--------+ + + + + | Date | Type | Department | Care Team | Description | +--------+ + + + + | 04/01/ | Hospital | [facility] | | | | 1998 | Encounter | MED CTR XRAY [address] | | | | | | [address] | | | | | | [place] [address] | | | | | | [phone] | | | +--------+ + + + [...]
--- OUTSIDE RECORDS SUMMARY | ~2020-06-24 | XMS | Encounter Summary ---
Demographics + + + | Address | [address] [facility] | | | [place] [address] | + + + | Home Phone [...] [place] | | | | | [address] | | + + + + + Care Team Providers + +------+ + | Care Comb Winder Name | Role | Phone | + +------+ + | Natalee Andersen NP | PCP | | + +------+ + Encounter Details +--------+ + + + + | Date | Type | Department | Care Team | Description | +--------+ + + + + | 07/25/ | Hospital | [facility] | Frandy Teresa, | Status post lumbar | | 2014 | Encounter | MED CTR XRAY [address] | DO [address] | spinal fusion | | | | [place] | [address] [place], [place] | | | | | [place] [address] | [address] | | | | | [phone] | | | +--------+ + + + [...] + + +---------+ + + | OLANZapine zbrienis | Take 15 mg by mouth | | 0 | 03/31/20 | | | (ZYPREXA ZYDIS) 15 | nightly. | | | 12 | 5 | | MG disintegrating | | | | | | | tablet | | | | | | + + + +---------+ + + | [place]-3 Fatty | Take 1,000 mg by | [...] + | MISCELLANEOUS LAB | | | [phone] | + +---------+ + + | MISCELANIOUS LAB | | | [phone] | + +---------+ + + documented in this encounter Visit Diagnoses + + | Diagnosis | + + | Status post lumbar spinal fusion Arthrodesis status | + + documented in this encounter"
--- OUTSIDE RECORDS SUMMARY | ~2020-06-24 | XMS | Encounter Summary ---
Demographics + + + | Address | [address] [facility] | | | [place] [address] | + + + | Home Phone [...] [place], [place] | | | | | [address] | | + + + + + Care Team Providers + +------+ + | Care Entry Level Electrician Name | Role | Phone | + +------+ + PCP | Unavailable | + +------+ + Encounter Details +--------+ + + + + | Date | Type | Department | Care Team | Description | +--------+ + + + + | 02/22/ | Hospital | [facility] | | | | 1996 - | Encounter | MED CTR GENERIC PSY | | | | | | CONV DEPT [address] | | | | 02/26/ | | [address], | | | | 1996 | | [place] [address] | | | | | | [phone] | | | +--------+ + + + [...]
--- OUTSIDE RECORDS SUMMARY | ~2020-06-24 | XMS | Encounter Summary ---
Demographics + + + | Address | [address] [facility] | | | [place] [address] | + + + | Home Phone | | + + + | Preferred Language | Unknown | + + + | Marital Status | | + + + | Rastafarian Affiliation | 1013 | + + + | Race | White | + + + | Ethnic Group | Not or | + + + Author + + + | Author | [facility] | | | and [place] | + + + | Organization | [facility] | | | and [place] | + + + | Address | Unknown | + + + | Phone | Unavailable | + + + Support + + + + + | Name | Relationship | Address | Phone | + + + + + | Araceli Sibley | ECON | [place] | | | | | [address] | | + + + + + Care Team Providers + +------+ + | Care Slurry Worker Name | Role | Phone | [...] [address] | [address] [place], [place] | | | | | [place], [place] | [address] | | | | | [address] | | | | | | [phone] | | | +--------+ + + + [...] + | MISCELLANEOUS LAB | | | [phone] | + +---------+ + + | MISCELANIOUS LAB | | | [phone] | + +---------+ + + documented in this encounter Visit Diagnoses + + | Diagnosis | + + | Back pain - Primary Backache, unspecified | + + documented in this encounter"
--- OUTSIDE RECORDS SUMMARY | ~2020-06-24 | XMS | Encounter Summary ---
Demographics + + + | Address | [address] [facility] [address] | | | [place] [address] | + + + | Home Phone [...] [place] | | | | | [address] | | + + + + + Care Team Providers + +------+ + | Care Field Account Director Name | Role | Phone | + +------+ + | Adriano Patrick MD | PCP | | + +------+ + Reason for Visit +--------+--------+ + | Reason | Onset | Comments | | | Date | | +--------+--------+ + | Other | 10/23/ | Patient called about metoprolol. | | | 2018 | | +--------+--------+ + Encounter Details +--------+ + + + + | Date | Type | Department | Care Team | Description | +--------+ + + + + | 10/23/ | Telephone | [facility] | Ashley Chávez | Other (Patient | | 2019 | | CARDIOLOGY GENESIS Abad, Cnmt | called about | | | | [address] | | metoprolol. ) | | | | [place] | | | | | | [address] | | | | | | [phone] | | | +--------+ + + + [...] Miscellaneous Notes Telephone Encounter - Ashley Chávez, Cnmt - 10/23/2019 10:49 AM Rory t called because she is wondering if the Metoprolol is working? Dr Peterson told her to call us if the Metoprolol 50mg is not helping. Patient called to see if would like to increase her dose. I was able to talk patient down and she sounded more at ease when we hung up. I told patient I would talk to Dr Peterson and call her back when I have her recommendations. JKASSIE:IRINA-AAMA. [facility] umented in this encounter Plan of Treatment Not on filedocumented as of this encounter Visit Diagnoses Not on filedocumented in this encounter"
--- OUTSIDE RECORDS SUMMARY | ~2020-06-24 | XMS | Encounter Summary ---
Demographics + + + | Address | [address] [facility] [address] [facility] [address] | | | [place] [address] | + + + | Home Phone [...] [place] | | | | | [address] | | + + + + + Care Team Providers + +------+ + | Care Getter Welder Name | Role | Phone | + [...] + | 08/20/ | Documentati | [facility] | Katharine Moncada, | Other (urgent | | 2019 | on | CARDIOLOGY GENESIS | Technologist | report) | | | | [address] | | | | | | [place] | | | | | | [address] | | | | | | [phone] | | | +--------+ + + + [...]
--- OUTSIDE RECORDS SUMMARY | ~2020-06-24 | XMS | Encounter Summary ---
Demographics + + + | Address | [address] [facility] [address] | | | [place] [address] | + + + | Home Phone [...] [place], [place] | | | | | [address] | | + + + + + Care Team Providers + +------+ + | Care Oxygen Tank Filler Name | Role | Phone | + +------+ + PCP | Unavailable | + +------+ + Encounter Details +--------+ + + + + | Date | Type | Department | Care Team | Description | +--------+ + + + + | 06/07/ | Hospital | [facility] | | | | 1991 - | Encounter | MED CTR GENERIC OP | | | | | | CONV DEPT [address] | | | | 10/07/ | | [place], | | | | 1991 | | [place] [address] | | | | | | [phone] | | | +--------+ + + + [...]
--- OUTSIDE RECORDS SUMMARY | ~2020-06-24 | XMS | Encounter Summary ---
Demographics + + + | Address | [address] [facility] [address] | | | [place] [address] | + + + | Home Phone [...] [place] | | | | | [address] | | + + + + + Care Team Providers + +------+ + | Care Central Office Technician Name | Role | Phone | + +------+ + | Natalee Andersen NP | PCP | | + +------+ + Encounter Details +--------+ + + + + | Date | Type | Department | Care Team | Description | +--------+ + + + + | 06/25/ | Hospital | [facility] | Latricia Feliciano | | | 2014 | Encounter | MED CTR ACUTE | D, PT [address] | | | | | PHYSICAL THERAPY | NEFTALIE [place] PAIGE | | | | | [address] | [address] | | | | | [place] [address] | | | | | | [phone] | | | +--------+ + + + [...] + + + +---------+ + + | Madeline-3 Fatty | Take 1,000 mg by | [...]
--- OUTSIDE RECORDS SUMMARY | ~2020-06-24 | XMS | Encounter Summary ---
Demographics + + + | Address | [address] [facility] [address] | | | [place] [address] | + + + | Home Phone [...] [place] | | | | | [address] | | + + + + + Care Team Providers + +------+ + | Care Singing Telegram Performer Name | Role | Phone | + +------+ + | Adriano Patrick MD | PCP | | + +------+ + Encounter Details +--------+ + + + + | Date | Type | Department | Care Team | Description | +--------+ + + + + | 05/16/ | Orders Only | [facility] | Provider, | | | 2018 | | SYSTEM GENERIC OP | MD [address] | | | | | CONVERSION [address] | [address] | | | | | [address] [place], [place] | [place] [address] | | | | | [address] | | | | | | [phone] | | | +--------+ + + + [...]
--- OUTSIDE RECORDS SUMMARY | ~2020-06-24 | XMS | Encounter Summary ---
Demographics + + + | Address | [address] [facility] [address] | | | [place] [address] | + + + | Home Phone [...] [place] | | | | | [address] | | + + + + + Care Team Providers + +------+ + | Care It Service Manager Name | Role | Phone | + +------+ + | Adriano Patrick MD | PCP | | + +------+ + Reason for Visit +--------+--------+ + | Reason | Onset | Comments | | | Date | | +--------+--------+ + | Other | 09/19/ | Patient calling to be seen sooner. | | | 2019 | | +--------+--------+ + Encounter Details +--------+ + + + + | Date | Type | Department | Care Team | Description | +--------+ + + + + | 09/19/ | Telephone | [facility] | Ashley Chávez | Other (Patient | | 2018 | | CARDIOLOGY GENESIS Abad, Joiner | calling to be seen | | | | [address] | | mirella. ) | | | | [place], [place] | | | | | | [address] | | | | | | [phone] | | | +--------+ + + + [...] Miscellaneous Notes Telephone Encounter - Ashley Chávez Joiner - 09/19/2019 10:41 AM PSTCall m cierra to patient to advise of Dr. Peterson's notes. Patient stated understanding. Patient asked why she couldn't be seen sooner, and I reminded her that we offered her a monae ner appointment that she turned down. Patient said thank you and hung up. BRODY:NABILAMA. el ephone Encounter - Ashley Chávez Joiner - 09/19/2019 10:40 AM PST Dora De La Torre, CAROLINE Peterson DO; Ashley Chávez Joiner So just an FYI: we offered her appointment today at 3 pm but she turned it down, and said she would keep scheduled appt. el ephone Encounter - Ashley Chávez Joiner - 09/19/2019 10:38 AM PST----- Mess age from Desiere Peterson DO sent at 09/17/2019 8:06 PM [...] she needs to be seen by a baster hand. I have asked Lizeth to call her [...] help her pulse? Please advise. Thank you! [facility] umented in this encounter Plan of Treatment Not on filedocumented as of this encounter Visit Diagnoses Not on filedocumented in this encounter"
--- OUTSIDE RECORDS SUMMARY | ~2020-06-24 | XMS | Encounter Summary ---
Demographics + + + | Address | [address] [facility] [address] | | | [place] [address] | + + + | Home Phone [...] [place] | | | | | [address] | | + + + + + Care Team Providers + +------+ + | Care Builder Beam Name | Role | Phone | + [...] + | 01/02/ | Telephone | [facility] | Frandy Teresa, | Other (6m x-ray ) | | 2014 | | NEUROSURGERY [address] | DO [address] | | | | | [address] | [address] [place], [place] | | | | | [place], [place] | [id number] | | | | | [address] | | | | | | [phone] | | | +--------+ + + + [...] for review. The order was faxed to [facility] today. She will let us know when this has been completed. SHAYNE ARAGON documented in this encounter Plan of Treatment Not on filedocumented as of this encounter Visit Diagnoses Not on filedocumented in this encounter"
--- OUTSIDE RECORDS SUMMARY | ~2020-06-24 | XMS | Encounter Summary ---
Demographics + + + | Address | [address] [facility] [address] | | | [place] [address] | + + + | Home Phone [...] [place] | | | | | [address] | | + + + + + Care Team Providers + +------+ + | Care Occasional Babysitter Name | Role | Phone | + [...] + + | 02/13/ | Office | [facility] | Roxannmiguel ángelDora | History of atrial | | 2020 | Visit | CARDIOLOGY [place] | CAR[address]INE Mendez [address] | fibrillation | | | | [address] | [address] | (Primary Dx); New | | | | [address] | [place] [address] | onset left bundle | | | | [place], [place] | [phone] | branch block (LBBB); | | | | [address] | | Benign essential | | | | [phone] | | HTN; History of | | [...] obesity) ([facility]) | +--------+---------+ + + + [...] 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 Her ARS1SC6 VASC score is 4 (stroke, HTN, gender) [...] She has previously seen Dr. Garland in [place], and different sleep provider in [facility] when lived over there. She previously reported [...] go back to volunteering at the local [employer], though this plan will need to be [...] thirst or hunger. Psychiatric/Behavioral: Bipolar/Schizophrenia. Tx'd by [facility] Vaccines: Current on flu vaccine: 2019 Current on pneumonia vaccine:PPSV 23 05/29/2013 Habits/Social : Denies history of smoking. Denies EtOH use. Denies recreational or illici t drug use. Exercises sporadically. Lives in [place] . Outpatient Medications Prior to Visit Medication [...] by mouth nightly. Blood Glucose Monitoring Suppl ([employer] VERIO FLEX SYSTEM) w/Device KIT by Does [...] nonspecific ST-T wave abnormality rate 82 bpm, NM 176 ms, QRS 80 ms, QTC 446 ms tracing personally reviewed by me EK12/17/2019: Sinus tachycardia, nonspecific ST wave abnormalities, rate 105 bpm, NM 196 ms, QRS 74 ms, QTC 430 ms, tracing personally reviewed by me, and compared to EKG performed in February 2019, rate is less well-controlled EK01/10/2020 (metoprolol XL 50 mg twice daily. Normal sinus rhythm, new left bundle bran ch block Rate 74 bpm, NM 204 ms, QRS 138 ms, QTC 488 [...] bundle branch block. Ra te 105 bpm, NM 184 ms, QRS 144 ms, QTC 489 ms, tracing personally reviewed by me, and compar ed to EKG performed in December , rate is less well-controlled LABS Labs: 12/26/2018: ( [facility])CMP: Sodium 139, potassium 4.2, chloride 99, BUN 10, creatinine 0. 7, BNP 28. CBC: WBC 7.8, hemoglobin 14.3, hematocrit 42.7, platelets 214 Labs: 09/28/2019:( [facility]) CBC: WBC 7.8, hemoglobin 14.9, hematocrit 43.8, platelets 221. C MP: Sodium 132, potassium 4.2, chloride 95, AST 76, ALT 76, alk phos 134 Labs: 10/11/2019:( [facility]) CBC: WBC 6.7, RBC 4.97, hemoglobin 15.2, hematocrit 44.7, platel ets 200. CMP: Glucose 385, BUN 7, creatinine 0.62, GFR 97, sodium 131, potassium 4.1, chlor kelby 95, albumin 4.3, total bilirubin 0.6, AST 75, ALT 73, alk phos 144. Thyroid: TSH 4.27 Labs: 10/12/2020:( [facility]) CBC: WBC 7, RBC 4.93, hemoglobin 14.7, hematocrit 44.1, platele ts 186 normal UA CMP: Glucose 381, BUN 6, creatinine 0.63, GFR 95, sodium 133, potassium 3.8 , chloride 97, albumin 4.3, total bili 0.6, AST 62, ALT 75, alk phos 145 thyroid: TSH 3.07 Labs: 10/20/2019:( [facility]) CBC: WBC 7.1, RBC 4.93, hemoglobin [...] reviewed her EKG and Echo with her finance advisor Dr. Peterson, who was in clin ic [...] Class III, BMI 40-49.9 (morbid obesity) ([facility]) Orders Placed This Encounter Procedures ECG 12 [...] continuity of care purp ose Preston [facility] Cardiology 02/15/2020 docume nted in this encounter Plan of Treatment Not [...] | | | | | DORA VELAZQUEZ ([id number]) on | | | | | | [...]
--- OUTSIDE RECORDS SUMMARY | ~2020-06-24 | XMS | Encounter Summary ---
Demographics + + + | Address | [address] [facility] [address] | | | [place] [address] | + + + | Home Phone [...] [place] | | | | | [address] | | + + + + + Care Team Providers + +------+ + | Care L D Rn Name | Role | Phone | [...] + + | 08/20/ | Documentati | [facility] | Katharine Moncada, | Other (urgent | | 2019 | on | CARDIOLOGY GENESIS | Technologist | report) | | | | [address] | | | | | | [place] | | | | | | [address] | | | | | | [phone] | | | +--------+ + + + [...]
--- OUTSIDE RECORDS SUMMARY | ~2020-06-24 | XMS | Encounter Summary ---
Demographics + + + | Address | [address] [facility] [address] | | | [place] [address] | + + + | Home Phone [...] [place] | | | | | [address] | | + + + + + Care Team Providers + +------+ + | Care Engine Testing Supervisor Name | Role | Phone | [...] + + | 08/24/ | Documentati | [facility] | Katharine Moncada, | Other (urgent | | 2019 | on | CARDIOLOGY GENESIS | Technologist | report) | | | | [address] | | | | | | [place] | | | | | | [address] | | | | | | [phone] | | | +--------+ + + + [...]
--- OUTSIDE RECORDS SUMMARY | ~2020-06-24 | XMS | Encounter Summary ---
Demographics + + + | Address | [address] [facility] [address] | | | [place] [address] | + + + | Home Phone [...] [place] | | | | | [address] | | + + + + + Care Team Providers + +------+ + | Care Car Supplier Name | Role | Phone | + +------+ + PCP | Unavailable | + +------+ + Encounter Details +--------+ + + + + | Date | Type | Department | Care Team | Description | +--------+ + + + + | 05/29/ | Hospital | [facility] | | | | 1991 | Encounter | MED CTR LABORATORY | | | | | | [address] | | | | | | [place] | | | | | | [address] | | | | | | [phone] | | | +--------+ + + + [...]
--- OUTSIDE RECORDS SUMMARY | ~2020-06-24 | XMS | Encounter Summary ---
Demographics + + + | Address | [address] [facility] [address] | | | [place] [address] | + + + | Home Phone [...] [place] | | | | | [address] | | + + + + + Care Team Providers + +------+ + | Care Mechanic Welder Truck Driver Name | Role | Phone [...] | | | | | | | [address] | | | | | | | Phone: | | | | | | | [phone] | | | | | | | Fax: | | | | | | | [phone] | | +--------+ + + + + + Reason for Visit + + + | Reason | Comments | + + + | Follow-up | 4 Week PO | + + + Encounter Details +--------+---------+ + + + | Date | Type | Department | Care Team | Description | +--------+---------+ + + + | 07/25/ | Office | [facility] | Frandy Teresa, | Lumbar spondylosis | | 2013 | Visit | NEUR[address]URGERY [address] | DO [address] | (Primary Dx); S/P | | | | [address] | [address] [place], [place] | lumbar fusion | | | | [place], [place] | [address] | | | | | [address] | | | | | | [phone] | | | +--------+---------+ + + + [...] [address] [facility] [place] [address] FAX: NEUROSURGERY SURGICAL FOLLOW-UP CHIEF COMPLAINT: Chief [...] Take 15 mg by mouth nightl y. Clayton-3 Fatty Acids (FISH OIL CONCENTRATE) 1000 MG [...] + | MISCELLANEOUS LAB | | | [phone] | + +---------+ + + | MISCELANIOUS LAB | | | [phone] | + +---------+ + + documented in this encounter Visit Diagnoses + + | Diagnosis | + + | Lumbar spondylosis - Primary Lumbosacral spondylosis without myelopathy | + + | S/P lumbar fusion Arthrodesis status | + + documented in this encounter
--- OUTSIDE RECORDS SUMMARY | ~2020-06-24 | XMS | Clinical Summary ---
Demographics + + + | Address | [address] [facility] [address] | | | [place] [address] | + + + | Home Phone [...] [place] | | | | | [address] | | + + + + + Care Team Providers + +------+ + | Care Development Lead Name | Role | Phone | [...] | | | | e | | ([employer] VERIO FLEX | | | | | [...] | | | + + + +---------+------+------+-------+ Active Problems [...] + + | 06/05/ | Telephone | Cardiology | Dora De La Torre | Cardiology | | 2019 | | | VanessaYONATAN sotomayorP | Appointment | +--------+ + + + + | 05/29/ | Procedure | Cardiology | Dora De La Torre | Left bundle branch | | 2019 | visit | | CAROLINE Mendez | block; Paroxysmal | | | | | | A-fib ([facility]); | | | | | | Syncope, unspecified | | | | | | syncope type; Rapid | | | | | | palpitations | +--------+ + + + + | 05/23/ | Telephone | Cardiology | Desiree Peterson DO | Chest Pain | 2019 | | | | | +--------+ + + + + | 05/19/ | Telephone | Cardiology | Dora De La Torre | Other (Cancel | 2019 | | | Vanessa, LAW TUTOR | appointment) | +--------+ + + + + | 05/08/ | Telephone | Cardiology | Dora eD La Torre | Testing | | 2020 [...] Torre | Left bundle branch | | 2019 | Visit | | CAROLINE Mendez | block (Primary Dx); | | | | | | Paroxysmal A-fib | | | | | | ([facility]); Mild | | | | | | hyperlipidemia; | | | | | | Benign essential | | | | | | HTN; Poorly | | | | | | controlled type 2 | | | | | | diabetes mellitus | | | | | | ([facility]); Syncope, | | | | [...] | | | | | | type ([facility]); Rapid | | | | [...] | [employer] - | | 04/02/ | [id number] | | 5ccImplanted: Qty: 1 on | | Spine | MEDT | | 2019 | | | 07/02/2014 by Frandy Teresa | | Lumbar | | | | /[id number] | | DO Ronak at [facility] | | | | | | 6-020 | | [facility] | | | | | | / | + +------+--------+ +--------+--------+--------+ | Graft Infuse Bone Kit Xxs - | | N/A: | [employer] | | 01/21/ | [id number] | | [id number]: Qty: 1 on | | Spine | DANEK - DIV | | 2014 | 0 / | | 07/02/2014 by Frandy Teresa | | Lumbar | [employer] | | | /[id number] | | A, DO at [facility] | | | - SFDK | | | 06AAH | | [facility] | | | | | | | + +------+--------+ +--------+--------+--------+ | Imp Spn Spcr Cpstn 8x26mm - | | N/A: | [employer] | | 01/11/ | [id number] | | [id number]: Qty: 1 on | | Spine | DANEK - DIV | | 2021 | 6 / | | 07/02/2014 by Frandy Teresa | | Lumbar | [employer] | | | /[id number] | | A, DO at [facility] | | | - SFDK | | | 928 | | [facility] | | | | | | | + +------+--------+ +--------+--------+--------+ | Set Scrw Ns G5 Brk Off Ti | | N/A: | [facility] | | | [id number] | | 4.75 - [id number]: | | Spine | DANEK - DIV | | | 0 / / | | Qty: 4 on 07/02/2014 by | | Lumbar | [employer] | | | | | Frandy Teresa DO at [facility] | | | - SFDK | | | | | [facility] | | | | | | | | [place] | | | | | | | + +------+--------+ +--------+--------+--------+ | RodImplanted: Qty: 1 on | | N/A: | | | | [id number] | | 07/02/2014 by Frandy Teresa | | Spine | | | | 540 / | | DO Ronak at [facility] | | Lumbar | | | | / | | [facility] | | | | | | | + +------+--------+ +--------+--------+--------+ | RodImplanted: Qty: 1 on | | N/A: | [employer]OL - | | | [id number] | | 07/02/2014 by Frandy Teresa | | Spine | MDTR | | | 545 / | | DO Ronak at [facility] | | Lumbar | | | | / | | [facility] | | | | | | | + +------+--------+ +--------+--------+--------+ | Screw 7.5x50mm Sextant - | | N/A: | [employer] - | | | [id number] | | [id number]: Qty: 1 on | | Spine | MEDT | | | [id number] | | 07/02/2014 by Frandy Teresa | | Lumbar | | | | / / | | DO Ronak at [facility] | | | | | | | | [facility] | | | | | | | + +------+--------+ +--------+--------+--------+ | Cannulated ScrewImplanted: | | N/A: | [employer] - | | | [id number] | | Qty: 1 on 07/02/2014 by | | Spine | MDTR | | | [id number] | | Frandy Teresa DO at [facility] | | Lumbar | | | | / / | | [facility] | | | | | | | | [facility]ENTER | | | | | | | + +------+--------+ +--------+--------+--------+ | Cannulated ScrewImplanted: | | N/A: | [employer] - | | | [id number] | | Qty: 1 on 07/02/2014 by | | Spine | MEDT | | | [id number] | | Frandy Teresa DO at [facility] | | Lumbar | | | | / / | | [facility] | | | | | | | [...] WAVE AXIS | 64 | degrees | ADAM MUSE | | + + + + [...] | | | | | DESIREE DONNELLY (3790) on | | | | | | [...] +--------+ +---------+--------+ | MEDICARE | MEDICA | [id number] | 02/22/20 | [phone] | | Medica | | | RE | | 09-Pre | 5 | | re | | | PART A | | sent | | | | | | AND B | | | | | | + +--------+ +--------+ +---------+--------+ | MEDICARE | MEDICA | [id number] | 02/22/20 | [phone] | | Medica [...] Self | [birth year] | [address] | | | al/Fam | | 5 | [phone] | [address] [place] | | | [place]onte | | | 1 (Home) | [address] | + +--------+ +--------+ + + | Cindy Arndt | Person | Self [birth year] | [address] | | | al/Fam | | 1955 | [phone] | [address] [place], [place] | | | [place] | | | 1 (Home) | [address] | + +--------+ +--------+ + + | Cindy Arndt | Person | Self [birth year] | [address] | | | al/Fam | | 1955 | [phone] | [address] [place], [place] | | | [place] | | | 1 (Home) | [address] | + +--------+ +--------+ + + Advance Directives + + + + + | Type | Date Recorded | Patient | Explanation | | | | Customer Support Professional | | + + + + + | Power of | | | | | Skein Spooler | | | | + + + [...]
--- OUTSIDE RECORDS SUMMARY | ~2020-06-24 | XMS | Encounter Summary ---
Demographics + + + | Address | [address] | | | [place] [address] | + + + | Home Phone [...] [place] | | | | | [address] | | + + + + + Care Team Providers + +------+ + | Care Application Architect Manager Name | Role | Phone [...] | | Required | | branch | HEADING MACHINE OPERATOR [address] | [address] | | | | | block | [place] | [facility] | | | | | Paroxysmal | [place] | [address] | | | | A-fib ([facility]) | [place], [place] | [address] | | | | | | [address] | [place], [place] | | | | | Schizoaffect | Phone: | [phone] Phone: | | | | | chris | [phone] | [phone] | | | | | disorder, | Fax: | Fax: | | | | | bipolar type | [phone] | [phone] | | | | | (HCC) | [...] + + | 04/24/ | Office | [facility] | Dora De La Torre | Left bundle branch | | 2020 | Visit | CARDIOLOGY [place] | [address] | block (Primary Dx); | | | | [address] | [address] [place] [address] | Paroxysmal A-fib | | | | [address] | [place] [address] | ([facility]); Mild | | | | [place], [place] | [phone] | hyperlipidemia; | | | | [address] | | Benign essential | | | | [phone] | | HTN; Poorly | | | | | | controlled type 2 | | | | | | diabetes mellitus | | | | | | ([facility]); Syncope, | | | | | | [...] | | | | | | type ([facility]); Rapid | | | | | | [...] have referred you to Dr. Osuna at [facility] , call [phone] for an appo intment next week as [...] patient of , who is her primary ticket worker, and last seen by her on 08/2020. [...] also resol shelly with weight loss Her RAC9NP2 VASC score is 4 (stroke, HTN, gender) [...] She has previously seen Dr. Garland in [place], and different sleep provider in [facility] when lived over there. She previously [...] Overnight with telemetry on April [address] [facility] She was consulted by Dr. Staley when [...] After her syncopal episode she had notified [facility] cardiology, and Dr. Marquez, who was on-call [...] no arrhythmias on telemetry when monitored ove saji and remained in sinus rhythm with no [...] condition her insight into her diabetes was christel vivar, and she continued to insist that she [...] PCP, or get a referral to an lozenge dough mixer to get her blood sugars better controlled, [...] thirst or hunger. Psychiatric/Behavioral: Bipolar/Schizophrenia. Tx'd by [employer] Vaccines: Current on flu vaccine: 2019 Current on pneumonia vaccine:PPSV 23 05/29/2013 Habits/Social : Denies history of smoking. Denies EtOH use. Denies recreational or illici t drug use. Exercises sporadically. Lives in [place] . Outpatient Medications Prior to Visit Medication Sig Dispense Refill albuterol 90 mcg/puff inhaler Inhale 2 puffs into the lungs every 4 (four) hours as nee ded for Wheezing. amitriptyline (ELAVIL) 150 MG tablet Take 150 mg by mouth nightly . ARIPiprazole (ABILIFY) 10 mg tablet Take 10 mg by mouth nightly. Blood Glucose Monitoring Suppl (Frug[employer] VERIO FLEX SYSTEM) w/Device KIT by Does [...] discomfort, patient unable to walk on [facility]. Resting EKG normal sinus rhythm, arrhythmias ventricular [...] nonspecific ST-T wave abnormality rate 82 bpm, AR 176 ms, QRS 80 ms, QTC 446 ms tracing personally reviewed by EK12/17/2019: Sinus tachycardia, nonspecific ST wave abnormalities, rate 105 bpm, AR 196 ms, QRS 74 ms, QTC 430 ms, tracing personally reviewed by me, and compared to EKG performed in February 2019, rate is less well-controlled EK01/10/2020 (metoprolol XL 50 mg twice daily. Normal sinus rhythm, new left bundle bran ch block Rate 74 bpm, AR 204 ms, QRS 138 ms, QTC 488 [...] bundle branch block. Ra te 105 bpm, AR 184 ms, QRS 144 ms, QTC 489 ms, tracing personally reviewed by me, and compar ed to EKG performed in December , rate is less well-controlled LABS Labs: 12/26/2018: ( [facility])CMP: Sodium 139, potassium 4.2, chloride 99, BUN 10, creatinine 0. 7, BNP 28. CBC: WBC 7.8, hemoglobin 14.3, hematocrit 42.7, platelets 214 Labs: 09/28/2019:( [facility]) CBC: WBC 7.8, hemoglobin 14.9, hematocrit 43.8, platelets 221. C MP: Sodium 132, potassium 4.2, chloride 95, AST 76, ALT 76, alk phos 134 Labs: 10/11/2019:( [facility]) CBC: WBC 6.7, RBC 4.97, hemoglobin 15.2, hematocrit 44.7, platel ets 200. CMP: Glucose 385, BUN 7, creatinine 0.62, GFR 97, sodium 131, potassium 4.1, chlor kelby 95, albumin 4.3, total bilirubin 0.6, AST 75, ALT 73, alk phos 144. Thyroid: TSH 4.27 Labs: 10/12/2020:( [facility]) CBC: WBC 7, RBC 4.93, hemoglobin 14.7, hematocrit 44.1, platele ts 186 normal UA CMP: Glucose 381, BUN 6, creatinine 0.63, GFR 95, sodium 133, potassium 3.8 , chloride 97, albumin 4.3, total bili 0.6, AST 62, ALT 75, alk phos 145 thyroid: TSH 3.07 Labs: 10/20/2019:( [facility]) CBC: WBC 7.1, RBC 4.93, hemoglobin 15.1, hematocrit 45.2, platel ets 204. CMP: Glucose 540, BUN 8, creatinine 0.81, GFR 71, sodium 131, potassium 4.1, chlor kelby 95, albumin 4.2, total bili 0.5, AST 54, ALT 63, alk phos 123, negative screen for all d rugs except tricyclics. Thyroid: TSH 3.39. Labs: 04/20/2020: ([facility]). CMP: Sodium 130, potassium 4.1, chloride [...] admission and overnight teleme try stay at [facility] for syncopal episode with extremely elevated glucose levels of 404, with hemoglobin A1c of 15.2. She has problems as detailed below. As discussed in HPI, she did not have any arrhythmias when monitored with telemetry overg , and her EKG performed the ER showed [...] an endocrine consult to treat her d iabetes. She reports she also may be changing [...] report. I have referred her to the [facility] sleep disorders clinic for further evaluation and bernadine atment Her event monitor will be placed on May 29, and she assured me that she would wear it for the full 2 weeks, and I will follow-up with her about the results on June 26. Addendum: Cindy called today and notified my medical laboratory assistant that she had thrown up al l over her monitor, and then had taken it off, and actually throwing it away, so the monitor has been lost. I contacted her PCP, Dr. Chloe Richter, who discussed with me due to Cindy' s ongoing psychiatric issues that she has a standing walk-in clinic appointment with her on and Sundays, and to let her know if she needed specific issues addressed. I discu ssed with Dr. Richter I would not be placing another monitor on her due to her difficulty in b oth wearing it, and now throwing it away. [...] 1 of the few prov iders in [place] currently 1. Left bundle branch block 2. Paroxysmal [...] continuity of care purp ose [place] BUCIO [facility] 04/25/2020 Laurie vivar in this encounter Plan of Treatment + [...] Expires: | | | | | A-fib ([facility]) | 04/24/2021 | | | | | [...] | | | | | | A-fib ([facility]) | | | | | | Schizoaffective | | | | | | disorder, bipolar | | | | | | type ([facility]) Rapid | | | | | | [...]
--- OUTSIDE RECORDS SUMMARY | ~2020-06-24 | XMS | Encounter Summary ---
Demographics + + + | Address | [address] | | | [place] [address] | + + + | Home Phone [...] [place] | | | | | [address] | | + + + + + Care Team Providers + +------+ + | Care Chinese Herbalist Name | Role | Phone [...] + + | 07/19/ | Office | [facility] | Desiree Peterson DO | Syncope, unspecified | | 2019 | Visit | [facility]IOLOGY [place] | [address] | syncope type | | | | [address] | [place], [place] | (Primary Dx); | | | | [address] | [address] | Essential | | | | [place] | | hypertension; | | | | [address] | | Irregular heartbeat | | | | [phone] | | | +--------+---------+ + + + [...] Peterson DO - 07/19/2019 10:[address] [facility] Cardiology Cardiology Follow Up Note [...] rtake in exercise. She recently got a [employer] and has been walking him more regularly. [...] by mouth daily. Blood Glucose Monitoring Suppl (PageStitch VERIO FLEX SYSTEM) w/Device KIT by Does not ap ply route. budesonide-formoterol (SYMBICORT) 160-4.5 MCG/ACT inhaler Inhale 2 puffs into the lungs 2 (two) times daily. Calcium Carbonate Antacid 1000 MG tablet Take 1,000 mg by mouth 3 (three) times daily. Cholecalciferol (VITAMIN D3) 25827 units CAPS Take by mouth once a [...]
--- OUTSIDE RECORDS SUMMARY | ~2020-06-24 | XMS | Encounter Summary ---
Demographics + + + | Address | [address] [facility] [address] | | | [place] [address] | + + + | Home Phone [...] [place] | | | | | [address] | | + + + + + Care Team Providers + +------+ + | Care Chief Relay Tester Name | Role | Phone | [...] [place] | | | | | | [address] | | | | | | [phone] | | | +--------+ + + + [...]
--- OUTSIDE RECORDS SUMMARY | ~2020-06-24 | XMS | Encounter Summary ---
Demographics + + + | Address | [address] | | | [place] [address] | + + + | Home Phone [...] [place] | | | | | [address] | | + + + + + Care Team Providers + +------+ + | Care Aerospace Medicine Physician Name | Role | Phone | + +------+ + | Basim Bolanos MD | PCP | | + +------+ + Encounter Details +--------+ + + + + | Date | Type | Department | Care Team | Description | +--------+ + + + + | 03/01/ | Abstract | [facility] [place] | [facility], | | | 2012 | | GASTROENTEROLOGY | [place] [address] | | | | | [address] | [address] | | | | | [address] [place], [place] | [place], [place] | | | | | [address] | [address] | | | | | [phone] | | | +--------+ + + + [...]
--- OUTSIDE RECORDS SUMMARY | ~2020-06-24 | XMS | Encounter Summary ---
Demographics + + + | Address | [address] [facility] [facility] | | | [place] [address] | + + + | Home Phone [...] [place] | | | | | [address] | | + + + + + Care Team Providers + +------+ + | Care Straightening Press Operator Name | Role | Phone [...] | | | spondylolist | | [address] | | | | | hesis | | [place], | | | | | Spinal | | [place] [address] | | | | | stenosis, | | Phone: | | | | | lumbar | | [phone] | | | | | region, | | Fax: | | | | | without | | [phone] | | | | | neurogenic | [...] | | | | | | | ID ARTHDSIS | | | | | | [...] | | | | | | ION ID | | | | | | | [...] | | | | | | SEG ID | | | | | | | [...] + + | 07/02/ | [facility] | [facility] | Frandy Teresa, | MIS L5-S1 | | 2013 | | MED CTR OR INTRA OP | DO [address] | TRANSFORAMINAL | | | | [address] | [address] | LUMBAR INTERBODY | | | | [place], [place] | [address] | FUSION | | | | [address] | | | | | | [phone] | | | +--------+---------+ + + + [...] might be different fro m the original. [facility] DISCHARGE SUMMARY PATIENT NAME: Cindy Arndt : [...] Take 15 mg by mouth nightl y. [place]-3 Fatty Acids (FISH OIL CONCENTRATE) 1000 [...] + + + +---------+ + + | [place]-3 Fatty | Take 1,000 mg by [...] Lynn PA-C - 07/04/2014 7:43 AM PDT [facility] PROGRESS NOTE Pt. Name/Age/: Cindy Arndt 58 y.o. 1955 Med. Record Number: [id number] Date of admission: 07/02/2014 Subjective: The patient [...] home medications. D/C plan: Home tomorrow with [facility]. D/c mari drain and riley cath today. 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 Patient Active Problem List Diagnosis LUMBAR DISC [...] signed by: Chris Nicole, 07/04/2014 7:[address] [facility] Chris Lynn PA-C - 07/03/2014 7:13 AM PDT . [facility] PROGRESS NOTE Pt. Name/Age/: Cindy Arndt 58 y.o. 1955 Med. Record Number: [id number] Date of admission: 07/02/2014 Subjective: The patient [...] signed by: Chris Nicole, 07/03/2014 7:13 [facility] on [facility] RRT - 07/03/2014 6:50 AM [...] by: Frandy Teresa DO, 07/02/2014 11:15 [facility] by Frandy Teresa DO at 06/2014 11:15 AM PDTDreyFrandy tim DO - 07/02/2014 11:15 AM [id number] [facility] [place] [place] [address] FAX: NEUROSURGERY HISTORY AND PHYSICAL EXAMINATION CHIEF [...] Take 15 mg by mouth nigh tly. [place]-3 Fatty Acids (FISH OIL CONCENTRATE) 1000 [...] Intrinsics 5 5 Ulnar Intrinsics 5 5 Cell Attendant Strength 5 5 Hip Flexion 5 4* [...] documented in this en counter Procedure Notes [facility] - 07/12/2014 12:00 AM PDT 14 1:[address] [facility] - 07/04/2014 12:[address] - 07/02/2014 12:00 AM PDT documented in this encounter Miscellaneous Notes Plan of Care - [facility] - 07/12/2014 12:00 AM PDT iscellaneous - [facility] 07/12/2014 12:00 AM PDTElec tronically signed by Mariah Schulte at 07/12/2014 1:45 PM PDTMiscellaneous - [facility] - 07/12/2014 12:00 AM PDT i scellaneous - [facility] 07/12/2014 12:00 AM PDT lan of Care - Germaine Louis RN - 07/05/2014 5:00 PM PDTProb honey: General Plan of Care (Adult, Obstetrics) Goal: Care Plan Shift Summary & Review . Outcome: Adequate for Discharge Date Met: [facility]05[facility] Did [facility] [...] and I will be going to a [facility] as I have 16 steps to my [...] TBD) Equipment Recommendations: tub bench;hand held shower head;cable mechanic;comfort height toilet ( pt. has all necessary [...] PA-C Consultants: none PCP: Natalee Andersen [facility] transferring to: [facility] Provider after transfer: PCP and Dr. Frandy Teresa CODE STATUS: [x] Attempt CPR [] Do not resuscitate If patient is pulseless and not breathing, RN/OCCUPATIONAL THERAPY AIDE may pronounce . Advanced Directives included: [] [...] for this patient. Diet: [] As tolerated PROCESS DEVELOPMENT ASSOCIATE may upgrade or downgrade diet as condition Indicates. [x] RN may downgrade diet as indicated. Type: [] Continue current diet of: Diet and Supplements Diet DIET CONSISTENT CARBOHYDRATE Number of Occurrences: -1 Days [] Other: Consistency/Precautions: [] Whole [] Thin Liquids [] Cut-up [] Parkline Thick [] Advanced Chopped [] Honey Thickened [] Chopped [] Advanced Ground [] 1:1 feedings [] Ground/Pureed [] Other: Tube Feedings: [] PEG [] GT [] JT [] NGT [] Formula type: (Global Clinical Leader may change/substitute if indicated). [] Continuous Rate: [...] & Management for: ____same as above [] PROCESS DEVELOPMENT ASSOCIATE Evaluation &Management for: [] Other: Wound/Skin Care: [...] Take 15 mg by mouth ni linda. [place]-3 Fatty Acids (FISH OIL CONCENTRATE) 1000 [...] Chris Nicole PA-C, certify that post hospital chcf care is medically nec essary on a continuing basis for any of the conditions for which he/she received care during this hospitalization. Check one: [x] Skilled [] Intermediate Additional Orders/Instructions: Physician's signature:__Chris Nicole PA-C 07/05/2014 13:18 [facility] NURSING [facility]ACILITY USE ONLY: [] Admitting [...] tolerate progressive walking and doing stairs du [facility] hospital stay due to multiple pain c/o. Attempted to see pt. 1145, however had just rec eived pain medication and requested PT return, SPL 9/10. At 1205 pt contacted PT for assist OOB due to left LE spasms and need for position change. Sitting at EOB on arrival, E COMMERCE MANAGER pres ent. Pt. donned LSO brace, stood [...] of endurance. When patient is walking in [facility] [place] with a regular FWW she has to stop frequently and states she feels very weak, like sh e may fall. Patient lives alone. Outpatient prescriptions are filled at [facility] in [facility]. Electronically signed by: Franca Narvaez RN 07/05/2014 10:43 lan of [facility] - 07/05/2014 10:39 AM PDTFaxed referral to [facility] and [facility]idia Tr[facility]. [place] : [phone] and [place]: [id number] Electronically signed by: Layne Collado 07/05/2014 10:40 Received a call from [facility]. They can accept Cindy. Received a call from [facility] and they can't accept Cindy. Tanna from [facility] called and they don't have any beds at this time Electronically signed by: Layne Collado 07/05/2014 12:22 Started the SNF packet. Electronically signed by: Layne Collado 07/05/2014 12:56 lan of [facility] - Sandhya Benites RN - 07/05/2014 5:14 [...] 07/04/2014 23:57 lan of Care - K raghavendrachaseRosemaryOJNH PotterA - 07/04/2014 5:46 PM PDTProblem: General [...] TBD) Equipment Recommendations: tub bench;hand held shower head;cable mechanic;comfort height toilet ( pt. has all necessary equipment) Planned Interventions: ADL retraining;transfer training Patient Status/Goals Reflects last filed data of patient status; may be from multiple contributors. Grooming: Status: did not occur today Assist: Utilizes: STG: Status: New Goal:modified independent LTG: Status: Goal: UE Dressing: Status: SBA Assist: Utilizes: STG: Status: Goal: LTG: Status: Goal: LE Dressing: Status: SBA Utilizes: cable mechanic STG: Status: New Goal: modified independent LTG: [...] bed mobil ity. Pt has been using PLATING ENGINEER and pain pills during the night. Zofran [...] by herself in a small apartment in [place]. Patient states she has her apartment set [...] to come from [facility] in [place]. She states the Said she might benefit [facility] upon discharge. She would like me to contact [facility] to giv e them a heads up. I called and spoke to Summer at [facility] , told her patients PCP i s [...] Pt. resting in bed on arrival, used PLATING ENGINEER x 2 during session. SPL /10. 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 Sidelying to sit at [...] TBD) Equipment Recommendations: tub bench;hand held shower head;cable mechanic;comfort height toilet ( pt. has all necessary [...] & Review . Outcome: Progressing Pt using PLATING ENGINEER and PO pain pills, c/o numbness on [...] and on a continuous oximeter for her PLATING ENGINEER. She was unable to do her IS because o f the medications. She has the IS at bedside with a goal of 2400. She did not require additi onal respiratory care throughout the evening. p Note - Frandy Teresa, DO - 07/02/2014 2:25 PM PDTDATE: 07/02/2014 SURGEON: Frandy Teresa MD. AUDITING SPECIALIST: ZANE Oh PREOPERATIVE DIAGNOSES 1. Spondylolisthesis, L5-S1. [...] x 26 mm Capstone PEEK cage from [employer] was chosen. It was filled with Infus [...] Note Cindy Arndt 58 y.o. female 1955 [id number] Proc. Date 07/02/2014 Preop Dx Spondylolisthesis L5-S1 Postop Dx same Procedure Procedure(s):MIS L5-S1 TRANSFORAMINAL LUMBAR INTERBODY FUSION Anesthesia General Surgeon Frandy Teresa DO Isotope Technologist ZANE Oh EBL 100 mL Findings Findings consistent with scheduled procedure. No other abnormalities found. Complications none Specimens * No specimens in log * Drains Electronically signed by: Frandy Teresa DO 07/02/2014 14:22 [facility] documented in this en counter Plan [...] + | [facility] | [address] | [place] | [phone] | | [facility] | | [address] | | | - LABORATORY | | | | + + + + + | [facility] | [address] | [place] | | | [facility] | | [id number] | | | - LABORATORY [...] + | [facility] [facility] | [address] | [place], [place] | [phone] | | [facility] | | [address] | | | - LABORATORY | | | | + + + + + | [facility] | [address] | [place], [place] | | | [facility] | | [id number] | | | - LABORATORY [...] + | [facility] | [address] | [place] | [phone] | | [facility] | | [address] | | | - LABORATORY | | | | + + + + + | [facility] | [address] | [place], [place] | | | [facility] | | [address], [facility] | | | - LABORATORY | | [...] + | [facility] | [address] | [place] | [phone] | | [facility] | | [address] | | | - LABORATORY | | | | + + + + + | [facility] | [address] | [place], [place] | | | [facility] | | [id number] | | | - LABORATORY [...] [address] | [place] | [phone] | | [facility] | | [address] | | | - LABORATORY | | | | + + + + + | [facility] | [address] | [place] | | | [facility] | | [id number] | | | - LABORATORY [...] + | [facility] | [address] | [place], [place] | [phone] | | [facility] | | [address] | | | - LABORATORY | | | | + + + + + | [facility] | [address] | [place], [place] | | | [facility] | | [id number] | | | - [...] [address] | [place] | [phone] | | [facility] | | [address] | | | - LABORATORY | | | | + + + + + | [facility] | [address] | [place] | | | [facility] | | [address], [facility] | | | - LABORATORY | | [...] + | [facility] | [address] | [place], [place] | [phone] | | [facility] | | [address] | | | - LABORATORY | | | | + + + + + | [facility] | [address] | [place], [place] | | | [facility] | | [id number] [place] [address] | | | - LABORATORY | | [...] + | [facility] | [address] | [place], [place] | [phone] | | [facility] | | [address] | | | - LABORATORY | | | | + + + + + | [facility] | [address] | [place], [place] | | | [facility] | | [id number] | | | - LABORATORY [...] | of hardware for posterior fusion from N5pwomqsm S1 with interbody hardware at L5-S1. The [...] + | MISCELLANEOUS LAB | | | [phone] | + +---------+ + + | MISCELANIOUS LAB | | | [phone] | + +---------+ + + POC Glucose [...] + | [facility] | [address] | [place], [place] | [phone] | | [facility] | | [address] | | | - LABORATORY | | | | + + + + + | [facility] | [address] | [place] | | | [facility] | | [id number] | | | - LABORATORY [...] + | [facility] | [address] | [place] | [phone] | | [facility] | | [address] | | | - LABORATORY | | | | + + + + + | [facility] | [address] | [place], [place] | | | [facility] | | [id number] | | | - LABORATORY [...] [address] | [place] | [phone] | | [facility] | | [address] | | | - LABORATORY | | | | + + + + + | [facility] | [address] | [place] | | | [facility] | | [address], [facility] | | | - LABORATORY | | [...] + | [facility] | [address] | [place] | [phone] | | [facility] | | [address] | | | - LABORATORY | | | | + + + + + | [facility] | [address] | [place], [place] | | | [facility] | | [address], [facility] | | | - LABORATORY | | [...] [address] | [place] | [phone] | | [facility] | | [address] | | | - LABORATORY | | | | + + + + + | [facility] | [address] | [place] | | | [facility] | | [id number] | | | - LABORATORY [...] | [facility] | | [address] | | | - BLOOD BANK | [...] mLs | | Surgical | | 1:200,000 0.25-1:798834 % | | 14 12:42 | | [...]
--- OUTSIDE RECORDS SUMMARY | ~2020-06-24 | XMS | Encounter Summary ---
Demographics + + + | Address | [address] [facility] [address] | | | [place] [address] | + + + | Home Phone [...] [place] | | | | | [address] | | + + + + + Care Team Providers + +------+ + | Care Police Surgeon Name | Role | Phone | + +------+ + | Natalee Andersen NP | PCP | | + +------+ + Encounter Details +--------+ + + + + | Date | Type | Department | Care Team | Description | +--------+ + + + + | 06/25/ | Hospital | [facility] | Frandy Teresa, | Diabetes mellitus | | 2014 | Encounter | MED CTR OR INTRA OP | DO [address] | ([facility]) (Primary Dx) | | | | [address] | [address] [place], [place] | | | | | [place], [place] | [address] | | | | | [address] | | | | | | [phone] | | | +--------+ + + + [...] + + + +---------+ + + | Le[place]-3 Fatty | Take 1,000 mg by | [...] this en counter H&P Notes ONBRUCE ABREU [facility] - 06/21/2014 12:00 AM PDT [...] MD at 06/26/2014 8:05 AM PDTONBASE SCAN [facility] - 06/26 12:00 AM PDT NBASE SERA N [facility] - 06/26/2014 12:00 AM PDT NBASE SCAN [facility] - 06/12/2014 12:00 AM PDTElectronically signed by Mariah Schulte at 06/12 7:30 AM PDTONBASE SCAN [facility] - 06/11/2014 12:00 AM PDT documented in this encounter Miscellaneous Notes Miscellaneous - ONBASE SCAN [facility] - 06/26/2014 12:00 AM PDT [...] stenosis, lumbar region, without neurogenic claudication ). Nurse Infection Control visit is in response to an electronic spiritual care consult request. Patient wa s resting comfortably in bed; she was attended by her mom and dad - both sate nearby and see med very attentive and supportive. Cindy is [place], attends [employer], and is strong in her rangel. She is excited about taking care of her back problem and fe els very secure in Dr. Teresa's care. She welcomed prayer, and expressed appreciation for th visit. Follow up with regular visits, emotional and spiritual support. iscellaneo us - ONBASE SCAN [facility] - 06/25/2014 12:00 AM PDTElectronically [...] Performed At | + + + | Terenec Madison MD 06/26/2014 8:05 Adult ECG Report [...] | mL/min/1.73m2 | [facility] | | | [place] | RATE,ESTIMATED | | MEDICAL | | | | mL/min/1.47h0Zujw than | | CENTER - | | [...] + | [facility] | [address] | [place] | [phone] | | [facility] | | [address] | | | - LABORATORY | | | | + + + + + | [facility] | [address] | [place] | | | [facility] | | [address], [facility] | | | - LABORATORY [...] + | [facility] | [address] | [place] | [phone] | | [facility] | | [address] | | | - LABORATORY | | | | + + + + + | [facility] | [address] | [place], [place] | | | [facility] | | [address], [facility] | | | - LABORATORY [...] + | [facility] | [address] | [place] | [phone] | | [facility] | | [address] | | | - LABORATORY | | | | + + + + + | [facility] | [address] | [place] | | | [facility] | | [address] | | | - LABORATORY | [...] + | [facility] | [address] | [place] | | | [facility] | | [address] | | | - BLOOD BANK | [...] + | [facility] | [address] | [place], [place] | [phone] | | [facility] | | [address] | | | - LABORATORY | | | | + + + + + | [facility] | [address] | [place], [place] | | | [facility] | | [address] [place] [address] | | | - LABORATORY | | [...]
--- OUTSIDE RECORDS SUMMARY | ~2020-06-24 | XMS | Encounter Summary ---
Demographics + + + | Address | [address] [facility] [address] | | | [place] [address] | + + + | Home Phone [...] [place] | | | | | [address] | | + + + + + Care Team Providers + +------+ + | Care Apple Peeler Operator Name | Role | Phone | + +------+ + PCP | Unavailable | + +------+ + Encounter Details +--------+ + + + + | Date | Type | Department | Care Team | Description | +--------+ + + + + | 12/06/ | Hospital | [facility] | | | | 1994 | Encounter | MED CTR LABORATORY | | | | | | [address] | | | | | | [place] | | | | | | [address] | | | | | | [phone] | | | +--------+ + + + [...]
--- OUTSIDE RECORDS SUMMARY | ~2020-06-24 | XMS | Encounter Summary ---
Demographics + + + | Address | [address] [facility] [address] | | | [place] [address] | + + + | Home Phone [...] [place] | | | | | [address] | | + + + + + Care Team Providers + +------+ + | Care Metal Washing Machine Operator Name | Role | Phone [...] as of this encounter Procedure Notes Interface, Automobile Technician In - 11/04/2006 3:03 AM PST [address] [id number] [facility] OPERATION RECORD Med Rec No.: [id number] Date: 07/08/98 Name: Cindy Arndt ATTENDING SURGEON: Lazaro Tello M.D. Professor, steel welder(S): Jose Dawson M.D. 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 POSTOPERATIVE DIAGNOSIS(ES): Same. OPERATION(S) PERFORMED: Left dacryocystorhinostomy with silicone intubation and anterior ethmoidectomy. ANESTHESIA: Two percent Xylocaine with adrenalin and Wydase local infiltration on the left side; nasal packing of cocaine and adrenalin; monitored anesthesia care. SPECIMEN(S) REMOVED: See below. PROCEDURE: The patient was brought to the operating room and prepped and draped in the usual manner. Anesthesia was as listed above. The skin incision was made 11 millimeters medial to the medial canthal commissure and extended downward and outward for 18 millimeters. The superficial fascia was picked up and cut with a curved iris scissors. Self-retaining skin retractor was put in place. The Slovan elevators were used to separate the orbicularis muscle down the periosteum. The periosteum was incised below the anterior lacrimal crest, elevated above and below the crest, the tear sac from the lacrimal fossa. Deep self-retaining retractor was replaced for the skin retractor. Nasal packing of cocaine and adrenalin placed at the beginning of the case was now removed. A Nicholas drill was used to make a bony window between the tear sac and nasal mucosa. The rongeur and punch were used to remove the remaining bone from the top of the fundus to the bottom of the nasolacrimal duct. A large anterior ethmoid cell was deskeletonized and the bone was removed. Next, the 0 probe was placed through the lower canaliculus until it tented the medial sac medially. A stab incision was made over the probe. Curved iris scissors were used to enlarge the incision from the top of the fundus to the bottom of the nasolacrimal duct. A parallel and adjacent incision was made in the nasal mucosa. Both posterior flaps were cut flush with the posterior lacrimal crest. A one-snip was made on the upper and lower punctum. Silicone tubing swaged on Quickert probes were placed through the lacrimal excretory system. The first probe was placed through the lower canaliculus until it was visualized beneath the anterior tear sac flap, grasped with a hemostat and pulled out through the nose. The other probe was placed through the upper canaliculus in the same manner. Probes were removed. Silicone was tied and allowed to retract. Instat was placed between the posterior and anterior tear sac flap. The anterior tear sac and nasal mucosal flap were closed with two #5-0 Vicryl. The periosteum was closed with running #6-0 Vicryl. The subcutaneous was closed with running #6-0 Vicryl, and the skin was closed with fast-absorbing #5-0 chromic. Mild dressing was placed over the incision. The patient tolerated the procedure well and was returned to the recovery room in good condition. There were no complications. Lazaro Tello M.D. Professor, Ophthalmology MEKHI/edgar P cc: documente d in this encounter Plan of Treatment [...] | Transcriptions | + + | Interface, Automobile Technician In - 11/04/2006 3:03 AM PST | | [id number] [facility] | | [place], [place] [address] [facility] and | | ClinicsOPERATION RECORDMed [...] skin retractor was put in place. The Slovan elevators wereused to separate the | | [...] | Lazaro Tello M.D. Professor, | | OphthalmologyJW/alsD: 07/08/98T: 07/08/98 3:08 Pcc: | |adrenalin placed [...]
--- OUTSIDE RECORDS SUMMARY | ~2020-06-24 | XMS | Encounter Summary ---
Demographics + + + | Address | [address] [facility] [address] | | | [place] [address] | + + + | Home Phone [...] [place], [place] | | | | | [address] | | + + + + + Care Team Providers + +------+ + | Care Engine Wiper Name | Role | Phone | + +------+ + PCP | Unavailable | + +------+ + Encounter Details +--------+ + + + + | Date | Type | Department | Care Team | Description | +--------+ + + + + | 07/23/ | Hospital | [facility] | | | | 1992 - | Encounter | MED CTR GENERIC PSY | | | | | | CONV DEPT [address] | | | | 07/28/ | | [address] [place], | | | | 1992 | | [place] [address] | | | | | | [phone] | | | +--------+ + + + [...]
--- OUTSIDE RECORDS SUMMARY | ~2020-06-24 | XMS | Encounter Summary ---
Demographics + + + | Address | [address] [facility] [address] | | | [place] [address] | + + + | Home Phone [...] [place] | | | | | [address] | | + + + + + Care Team Providers + +------+ + | Care Tack Cleaner Name | Role | Phone | [...] + + | 08/14/ | Documentati | [facility] | Katharine Moncada, | Other (urgent | | 2019 | on | CARDIOLOGY [facility] | Technologist | report) | | | | [address] | | | | | | [place] | | | | | | [address] | | | | | | [phone] | | | +--------+ + + + [...]
--- OUTSIDE RECORDS SUMMARY | ~2020-06-24 | XMS | Encounter Summary ---
Demographics + + + | Address | [address] [facility] | | | [place] [address] | + + + | Home Phone [...] [place], [place] | | | | | [address] | | + + + + + Care Team Providers + +------+ + | Care Market Research Analyst Name | Role | Phone | + +------+ + PCP | Unavailable | + +------+ + Encounter Details +--------+ + + + + | Date | Type | Department | Care Team | Description | +--------+ + + + + | 06/19/ | Hospital | [facility] | | | | 1991 - | Encounter | MED CTR GENERIC PSY | | | | | | CONV DEPT [address] | | | | 06/24/ | | [address] [place], | | | | 1991 | | [place] [address] | | | | | | [phone] | | | +--------+ + + + [...]
--- OUTSIDE RECORDS SUMMARY | ~2020-06-24 | XMS | Encounter Summary ---
Demographics + + + | Address | [address] [facility] [facility] | | | [place] [address] | + + + | Home Phone [...] [place] | | | | | [address] | | + + + + + Care Team Providers + +------+ + | Care Screw Driver Operator Name | Role | Phone | [...] + + | 08/09/ | Documentati | [facility] | Katharine Moncada, | Other (end of study) | | 2019 | on | [facility] [place] | Technologist | | | | | [address] | | | | | | [place], [place] | | | | | | [address] | | | | | | [phone] | | | +--------+ + + + [...] Technologist - 08/09/2019 11:59 PM PDT Cardiac Mutuel Department Manager Date of Event Monitor: 08/09/19 Referring [...]
--- OUTSIDE RECORDS SUMMARY | ~2020-06-24 | XMS | Encounter Summary ---
Demographics + + + | Address | [address] [facility] | | | [place] [address] | + + + | Home Phone [...] [place] | | | | | [address] | | + + + + + Care Team Providers + +------+ + | Care Offset Machine Operator Name | Role | Phone [...] | | | | | Procedures | ORE D[address] | [address] | | | | | AL OFFICE | | [address] | | | | | CONSULTATION | [address] | [place], [place] | | | | | NEW/ESTAB | [place], | [address] Phone: | | | | | PATIENT 60 | [place] [address] | [phone] | | | | | MIN | Phone: | Fax: | | | | | | [phone] | [phone] | | | | | | Fax: | | | | | | | [phone] | | +--------+--------+ + + + + Encounter Details +--------+---------+ + + + | Date | Type | Department | Care Team | Description | +--------+---------+ + + + | 05/02/ | Office | [facility] | Frandy Teresa, | Spondylolisthesis of | | 2013 | Visit | NEUROSURGERY [address] | DO [address] | lumbar region | | | | [address] | [address] [place], [place] | (Primary Dx); Lumbar | | | | [place] | [address] | stenosis; Lumbar | | | | [address] | | radicular pain; | | | | [phone] | | Lumbago | +--------+---------+ + + [...] Frandy Teresa DO [address] [facility] [place], [place] [id number] FAX: NEUROSURGERY HISTORY AND PHYSICAL EXAMINATION CHIEF [...] RIGHT Cholecystectomy 1998 Mastectomy, partial 1996 Hysterectomy 1991 [facility], Tonsillectomy [...] Take 15 mg by mouth nightl y. Gillett-3 Fatty Acids (FISH OIL CONCENTRATE) 1000 MG [...] has no apparent deficits with short or superintendent terminal memory. CRANIAL NERVES: II: Acuity is intact. [...] Intrinsics 5 5 Ulnar Intrinsics 5 5 Mold Stripper Strength 5 5 Hip Flexion 5 4* [...] spent 1 hour in visit with Cindy Santos Yris today with the majority of time spent coun selling the patient on her diagnosis, options for her care, and coordinating her care. ELECTRONICALLY SIGNED BY: Frandy Teresa DO, 05/02/2014 11:42 documented in this encounter Miscellaneous Notes Miscellaneous - ONBASE SCAN [facility] - 05/02/2014 12:00 AM PDTElectronically signed by [facility] at 05/08/2014 8:57 AM PDTMiscellaneous - ONBASE SCAN [facility] - 05/02/2014 12:00 AM PDTEle ctronically signed by [facility] at 05/08/2014 8:56 AM PDTdocumented in this [...]
--- OUTSIDE RECORDS SUMMARY | ~2020-06-24 | XMS | Encounter Summary ---
Demographics + + + | Address | [address] [facility] | | | [place] [address] | + + + | Home Phone [...] [place] | | | | | [address] | | + + + + + Care Team Providers + +------+ + | Care Night Coordinator Name | Role | Phone | [...] [place] | | | | | | [address] | | | | | | [phone] | | | +--------+ + + + [...]
--- OUTSIDE RECORDS SUMMARY | ~2020-06-24 | XMS | Encounter Summary ---
Demographics + + + | Address | [address] [facility] | | | [place] [address] | + + + | Home Phone [...] [place] | | | | | [address] | | + + + + + Care Team Providers + +------+ + | Care Office Services Specialist Name | Role | Phone | [...] [address] | [address] [place], [place] | Hypothyroidism; | | | | [place] | [address] | GERD; BACK PAIN, | | | | [address] | | LUMBAR, WITH | | | | [phone] | | RADICULOPATHY; | | | | [...]
--- OUTSIDE RECORDS SUMMARY | ~2020-06-24 | XMS | Encounter Summary ---
Demographics + + + | Address | [address] [facility] | | | [place] [address] | + + + | Home Phone [...] [place] | | | | | [address] | | + + + + + Care Team Providers + +------+ + | Care Elementary Librarian Name | Role | Phone | [...] + + | 10/25/ | Telephone | [facility] | Ashley Chávez | Other (Patient to | | 2019 | | CARDIOLOGY GENESIS Abad, Purchasing And Claims Supervisor | stay on the same | | | | [address] | | dose. ) | | | | [place] | | | | | | [address] | | | | | | [phone] | | | +--------+ + + + [...] Miscellaneous Notes Telephone Encounter - Ashley Chávez Purchasing And Claims Supervisor - 10/25/2019 8:44 AM PSTCall m cierra [...] Would not answer my calling her again. BRODY:SPACE AND [employer]IS[employer]PERATIONS-AAMA. el ephone Encounter - Ashley Chávez Purchasing And Claims Supervisor - 10/25/2019 8:40 AM PST----- Mess age from Desiree Peterson DO sent at 10/24/2019 8:42 PM PST ----- Regarding: RE: Patient's Metoprolol. We can stay on the same dose of metoprolol for now. Thanks ----- Message ----- From: Ashley Chávez Purchasing And Claims Supervisor Sent: 10/23/2019 10:52 AM PST To: Desiree [...]
--- OUTSIDE RECORDS SUMMARY | ~2020-06-24 | XMS | Encounter Summary ---
Demographics + + + | Address | [address] [facility] | | | [place] [address] | + + + | Home Phone [...] [place] | | | | | [address] | | + + + + + Care Team Providers + +------+ + | Care Rn Production Name | Role | Phone | + [...] + | 06/20/ | Telephone | [facility] | Frandy Teresa, | Other (surgery | | 2013 | | NEUROSURGERY [address] | DO [address] | reminder ) | | | | [facility] | [address] [place], [place] | | | | | [place], [place] | [phone] | | | | | [address] | | | | | | [phone] | | | +--------+ + + + [...] given at this time. SHAYNE ARAGON elephone Encounte r - Shayne Aragon Cert MA - 06/20/2014 4:30 PM PDTLeft message for Cindy regarding surg destinee on 06/25/14. Asked that she please return my call. SHAYNE ARAGON documented in this encounter Plan of Treatment Not on filedocumented as of this encounter Visit Diagnoses Not on filedocumented in this encounter"
--- OUTSIDE RECORDS SUMMARY | ~2020-06-24 | XMS | Encounter Summary ---
Demographics + + + | Address | [address] [facility] | | | [place] [address] | + + + | Home Phone [...] [place] | | | | | [address] | | + + + + + Care Team Providers + +------+ + | Care Lead Caster Name | Role | Phone | + [...] | | | spondylolist | | [address] | | | | | hesis | | [place], | | | | | Spinal | | [place] [address] | | | | | stenosis, | | Phone: | | | | | lumbar | | [phone] | | | | | region, | | Fax: | | | | | without | | [phone] | | | | | neurogenic | [...] | lumbar region, | | | | [place] | [address] [place] | without neurogenic | | | | [place] [address] | [id number] | claudication | | | | [phone] | | (Primary Dx) | +--------+ + [...] + + + +---------+ + + | Fairview-3 Fatty | Take 1,000 mg by | [...]
--- OUTSIDE RECORDS SUMMARY | ~2020-06-24 | XMS | Encounter Summary ---
Demographics + + + | Address | [address] [facility] | | | [place] [address] | + + + | Home Phone [...] [place] | | | | | [address] | | + + + + + Care Team Providers + +------+ + | Care Tool Clerk Name | Role | Phone | + +------+ + PCP | Unavailable | + +------+ + Encounter Details +--------+ + + + + | Date | Type | Department | Care Team | Description | +--------+ + + + + | 10/29/ | Hospital | [facility] | | | | 1994 | Encounter | MED CTR LABORATORY | | | | | | [address] | | | | | | [place] | | | | | | [address] | | | | | | [phone] | | | +--------+ + + + [...]
--- OUTSIDE RECORDS SUMMARY | ~2020-06-24 | XMS | Encounter Summary ---
Demographics + + + | Address | [address] [facility] | | | [place] [address] | + + + | Home Phone [...] [place] | | | | | [address] | | + + + + + Care Team Providers + +------+ + | Care Safety Representative Name | Role | Phone [...] + | 02/21/ | Refill | [facility] | Deon Gonzales | Medication Refill | | 2012 | | SLEEP DISORDER [address] | MD [address] | | | | | [address] [place] | [address] | | | | | [place] [address] | [place] [address] | | | | | [phone] | [phone] | | | | | | | [...] - 02/22/2013 9:32 AM [facility] documented in this encount er Plan of Treatment Not on filedocumented as of this encounter Visit Diagnoses + + | Diagnosis | + + | Obstructive sleep apnea (adult) (pediatric) - Primary | + + documented in this encounter"
--- OUTSIDE RECORDS SUMMARY | ~2020-06-24 | XMS | Encounter Summary ---
Demographics + + + | Address | [address] [facility] | | | [place] [address] | + + + | Home Phone [...] [place] | | | | | [address] | | + + + + + Care Team Providers + +------+ + | Care Marbleizing Machine Tender Name | Role | Phone | + +------+ + PCP | Unavailable | + +------+ + Encounter Details +--------+ + + + + | Date | Type | Department | Care Team | Description | +--------+ + + + + | 06/30/ | Hospital | [facility] | | | | 2000 | Encounter | MED CTR EMERGENCY | | | | | | CENTER [address] | | | | | | [place] | | | | | | [address] | | | | | | [phone] | | | +--------+ + + + [...]
--- OUTSIDE RECORDS SUMMARY | ~2020-06-24 | XMS | Encounter Summary ---
Demographics + + + | Address | [address] [facility] | | | [place] [address] | + + + | Home Phone [...] [place] | | | | | [address] | | + + + + + [...] + + | 07/08/ | Telephone | [facility] | Frandy Teresa, | Other (post op call | | 2013 | | NEUROSURGERY [address] | DO [address] | ) | | | | [address] | [address] [place], [place] | | | | | [place], [place] | [phone] | | | | | [address] | | | | | | [phone] | | | +--------+ + + + [...] Aragon Cert MA - 07/08/2014 11:04 [facility] SHAYNE ARAGON documented in this encounter Plan of Treatment Not on filedocumented as of this encounter Visit Diagnoses Not on filedocumented in this encounter"
--- OUTSIDE RECORDS SUMMARY | ~2020-06-24 | XMS | Encounter Summary ---
Demographics + + + | Address | [address] [facility] | | | [place] [address] | + + + | Home Phone [...] [place] | | | | | [address] | | + + + + + Care Team Providers + +------+ + | Care Newsperson Name | Role | Phone | + +------+ + PCP | Unavailable | + +------+ + Encounter Details +--------+ + + + + | Date | Type | Department | Care Team | Description | +--------+ + + + + | 08/21/ | Hospital | [facility] | | | | 1996 | Encounter | MED CTR LABORATORY | | | | | | [address] | | | | | | [place] | | | | | | [address] | | | | | | [phone] | | | +--------+ + + + [...]
--- OUTSIDE RECORDS SUMMARY | ~2020-06-24 | XMS | Encounter Summary ---
Demographics + + + | Address | [address] [facility] | | | [place] [address] | + + + | Home Phone [...] [place] | | | | | [address] | | + + + + + Care Team Providers + +------+ + | Care Business Development Assistant Name | Role | Phone | [...] + + | 08/20/ | Documentati | [facility] | Katharine Moncada, | Other (urgent | | 2019 | on | CARDIOLOGY GENESIS | Technologist | report) | | | | [address] | | | | | | [place] | | | | | | [address] | | | | | | [phone] | | | +--------+ + + + [...]
--- OUTSIDE RECORDS SUMMARY | ~2020-06-24 | XMS | Encounter Summary ---
Demographics + + + | Address | [address] [facility] | | | [place] [address] | + + + | Home Phone [...] [place] | | | | | [address] | | + + + + + Care Team Providers + +------+ + | Care Reinsurance Clerk Name | Role | Phone | [...] | | | | | [address] | [place], [place] | | | | | [place], [place] | [address] | | | | | [address] | | | | | | [phone] | | | +--------+ + + + [...] EVALUATION Cindy Arndt 58 y.o. female 1955 [id number] Scheduled procedure LAMINECTOMY PLIF/TLIF INSTRUMENTATION [1842] - L5-S1 TLIF Medical history, anesthesia, medications, allergy histories reviewed. ECG reviewed. Labs reviewed. ROS / Med History Ane (+) PONV. (-) difficult intubation, malignant hyperthermia . NPO status verified. CV (+) hypertension.(-) past [place]. (+) Dysrhythmias (h/o PVCs) Exercise tolerance >4 [...]
--- OUTSIDE RECORDS SUMMARY | ~2020-06-24 | XMS | Encounter Summary ---
Demographics + + + | Address | [address] [facility] | | | [place] [address] | + + + | Home Phone [...] [place] | | | | | [address] | | + + + + + Care Team Providers + +------+ + | Care Dip Dyer Name | Role | Phone | + +------+ + PCP | Unavailable | + +------+ + Encounter Details +--------+ + + + + | Date | Type | Department | Care Team | Description | +--------+ + + + + | 09/24/ | Hospital | [facility] | | | | 1993 | Encounter | MED CTR LABORATORY | | | | | | [address] | | | | | | [place] | | | | | | [address] | | | | | | [phone] | | | +--------+ + + + [...]
--- OUTSIDE RECORDS SUMMARY | ~2020-06-24 | XMS | Encounter Summary ---
Demographics + + + | Address | [address] [facility] | | | [place] [address] | + + + | Home Phone [...] Author | [facility] | | [...] [place] | | | | | [address] | | + + + + + Care Team Providers + +------+ + | Care Stacker Straightener Name | Role | Phone | + [...] | 07/19/ | Telephone | [facility] | Frandy Teresa, | Appointment | | 2013 | | NEUROSURGERY [address] | DO [address] | | | | | [address] | [address] [place], [place] | | | | | [place], [place] | [id number] | | | | | [address] | | | | | | [phone] | | | +--------+ + + + [...] right after she got back home to [place]. Heather can be reached at [phone] ectronically signed by Tiffani Humphrey at 07/22/2014 [...]
--- OUTSIDE RECORDS SUMMARY | ~2020-06-24 | XMS | Encounter Summary ---
Demographics + + + | Address | [address] [facility] | | | [place] [address] | + + + | Home Phone [...] [place] | | | | | [address] | | + + + + + Care Team Providers + +------+ + | Care Automotive Software Engineer Name | Role | Phone [...] | | | | | | [place], | | | | | | [place] [address] | | | | | | [phone] | | | +--------+ + + + [...] | | + +---------+ + + | [facility] DEPARTMENT OF | | | | | RADIOLOGY | | | | + +---------+ + + documented in this encounter Visit Diagnoses Not on filedocumented in this encounter"
--- OUTSIDE RECORDS SUMMARY | ~2020-06-24 | XMS | Encounter Summary ---
Demographics + + + | Address | [address] [facility] | | | [place] [address] | + + + | Home Phone [...] [place] | | | | | [address] | | + + + + + Care Team Providers + +------+ + | Care Vacuum Cooker Operator Name | Role | Phone | + +------+ + PCP | Unavailable | + +------+ + Encounter Details +--------+ + + + + | Date | Type | Department | Care Team | Description | +--------+ + + + + | 01/06/ | Hospital | [facility] | | | | 1992 | Encounter | MED CTR LABORATORY | | | | | | [address] | | | | | | [place] | | | | | | [address] | | | | | | [phone] | | | +--------+ + + + [...]
--- OUTSIDE RECORDS SUMMARY | ~2020-06-24 | XMS | Encounter Summary ---
Demographics + + + | Address | [address] [facility] | | | [place] [address] | + + + | Home Phone [...] [place], [place] | | | | | [address] | | + + + + + Care Team Providers + +------+ + | Care Structural Steel Worker Helper Name | Role | Phone | + +------+ + PCP | Unavailable | + +------+ + Encounter Details +--------+ + + + + | Date | Type | Department | Care Team | Description | +--------+ + + + + | 03/26/ | Hospital | [facility] | | | | 2001 | Encounter | MED CTR LABORATORY | | | | | | [address] | | | | | | [place] | | | | | | [address] | | | | | | [phone] | | | +--------+ + + + [...]
--- OUTSIDE RECORDS SUMMARY | ~2020-06-24 | XMS | Encounter Summary ---
Demographics + + + | Address | [address] [facility] | | | [place] [address] | + + + | Home Phone [...] [place] | | | | | [address] | | + + + + + Care Team Providers + +------+ + | Care Fire Investigation Lieutenant Name | Role | Phone | [...] | Services | ogy | Epigastric | [facility], | Tyrese Shelley MD | | | Required | | abdominal | [place], | [address], | | | | | pain GERD | [employer] [address] | [address] | | | | | (gastroesoph | [address] | [place], | | | | | ageal reflux | [address] | [place] [address] | | | | | disease) | [place], | Phone: | | | | | Fatty liver | [place] [address] | [phone] | | | | | DM | Phone: | Fax: | | | | | (diabetes | [phone] | [phone] | | | | | mellitus) | Fax: | | | | | | (HCC) | [phone] | | +--------+ + + + + + Reason for Visit + + + | Reason | Comments | + + + | Gastroesophageal | epigastric pain | | Reflux | | + + + Encounter Details +--------+---------+ + + + | Date | Type | Department | Care Team | Description | +--------+---------+ + + + | 03/06/ | Office | [facility] | [facility], | Epigastric abdominal | | 2012 | Visit | GASTROENTEROLOGY | FORTUNATO Thomas [address] | pain (Primary Dx); | | | | [address] | [address] | GERD | | | | [address] [place], [place] | [place] | (gastroesophageal | | | | [address] | [address] | reflux disease); | | | | [phone] | | Fatty liver; DM | | [...] years ago by Dr. Saravanan Tsai, in [facility]. Colonoscopy was done 05/[address] Hamlin in [facility]. Allergies Allergen Reactions Demerol Duloxetine [...] Miscellaneous Notes Miscellaneous - ONBASE SCAN [facility] - 03/06/2013 12:00 AM PDT iscellaneous - ONBASE SCAN [facility] - 03/06/2013 12:00 AM PDTEle ctronically signed by Mariah Schulte at 04/09/2013 9:48 AM PDTMiscellaneous - ONBASE SCAN [facility] - 03/06/2013 12:00 AM PDT d [...]
--- OUTSIDE RECORDS SUMMARY | ~2020-06-24 | XMS | Encounter Summary ---
Demographics + + + | Address | [address] [facility] | | | [place] [address] | + + + | Home Phone [...] [place] | | | | | [address] | | + + + + + Care Team Providers + +------+ + | Care Apartment Leasing Agent Name | Role | Phone | [...] | SLEEP DISORDER [address] | [address] | | | | | [address] [place] | [place] | | | | | [place] [address] | [address] | | | | | [phone] | | | +--------+ + + + [...] PDTTjt was last seen in our o pending sale to [facility] on 04/30/2015. He did not cancel or [...] PA-C eleph one Encounter - Gail Cadet, Overnight Stocker - 07/15/2016 8:37 AM PDTCalled to resched ule patient's no show appointment unable to contact all numbers are disconnected. Electronic ally signed by Leidy Wong at 07/15/2016 8:37 AM PDTdocumented in this encounter Plan of Treatment Not on filedocumented as of this encounter Visit Diagnoses Not on filedocumented in this encounter"
--- OUTSIDE RECORDS SUMMARY | ~2020-06-24 | XMS | Encounter Summary ---
Demographics + + + | Address | [address] [address] [facility] | | | [place] [address] | + + + | Home Phone [...] [place], [place] | | | | | [address] | | + + + + + Care Team Providers + +------+ + | Care Calculation Reviewer Name | Role | Phone | + +------+ + PCP | Unavailable | + +------+ + Encounter Details +--------+ + + + + | Date | Type | Department | Care Team | Description | +--------+ + + + + | 12/24/ | Hospital | [facility] | | | | 1998 | Encounter | MED CTR XRAY [address] | | | | | [address] | | | | | | [place] [address] | | | | | | [phone] | | | +--------+ + + + [...]
--- OUTSIDE RECORDS SUMMARY | ~2020-06-24 | XMS | Encounter Summary ---
Demographics + + + | Address | [address] [facility] | | | [place] [address] | + + + | Home Phone [...] [place], [place] | | | | | [address] | | + + + + + Care Team Providers + +------+ + | Care Quilt Sewer Name | Role | Phone | + +------+ + PCP | Unavailable | + +------+ + Encounter Details +--------+ + + + + | Date | Type | Department | Care Team | Description | +--------+ + + + + | 05/23/ | Hospital | [facility] | | | | 1991 | Encounter | MED CTR XRAY [address] | | | | | | [address] | | | | | | [place] [address] | | | | | | [phone] | | | +--------+ + + + [...]
--- OUTSIDE RECORDS SUMMARY | ~2020-06-24 | XMS | Encounter Summary ---
Demographics + + + | Address | [address] [facility] [address] [facility] | | | [place] [address] | + + + | Home Phone [...] [place], [place] | | | | | [address] | | + + + + + Care Team Providers + +------+ + | Care Delivery Specialist Name | Role | Phone [...] | | | | | | [address] [facility] | | | | | | [place], [place] | | | | | | [address] | | | | | | [phone] | | | +--------+ + + + [...]
--- OUTSIDE RECORDS SUMMARY | ~2020-06-24 | XMS | Encounter Summary ---
Demographics + + + | Address | [address] [facility] [address] | | | [place] [address] | + + + | Home Phone [...] [place] | | | | | [address] | | + + + + + Care Team Providers + +------+ + | Care Surgical Services Asst Name | Role | Phone | [...] + | 08/14/ | Telephone | [facility] | Ashley Chávez | Other (Patient was | | 2018 | | CARDIOLOGY [place] Abad, Data Communications Software Consultant | anxious about urgent | | | | [address] | | reports. ) | | | | [place] | | | | | | [address] | | | | | | [phone] | | | +--------+ + + + [...] Miscellaneous Notes Telephone Encounter - Ashley Chávez, Data Communications Software Consultant - 08/14/2019 9:16 AM Seferino foster called [...] for the time being. Patient stated understanding. BRODY:WAIST PRESSER-AAMA. [facility] umented in this encounter Plan of Treatment Not on filedocumented as of this encounter Visit Diagnoses Not on filedocumented in this encounter"
--- OUTSIDE RECORDS SUMMARY | ~2020-06-24 | XMS | Encounter Summary ---
Demographics + + + | Address | [address] [facility] [address] | | | [place] [address] | + + + | Home Phone [...] [place] | | | | | [address] | | + + + + + Care Team Providers + +------+ + | Care Chefs Name | Role | Phone | + +------+ + PCP | Unavailable | + +------+ + Encounter Details +--------+ + + + + | Date | Type | Department | Care Team | Description | +--------+ + + + + | 02/16/ | Hospital | [facility] | | | | 1994 | Encounter | [facility] | | | | | | [address] | | | | | | [place] | | | | | | [address] | | | | | | [phone] | | | +--------+ + + + [...]
--- OUTSIDE RECORDS SUMMARY | ~2020-06-24 | XMS | Encounter Summary ---
Demographics + + + | Address | [address] [facility] [address] | | | [place] [address] | + + + | Home Phone [...] [place] | | | | | [address] | | + + + + + Care Team Providers + +------+ + | Care Cosmetologist Apprentice Name | Role | Phone | [...] [address] | [address] [place], [place] | fusion | | | | [place], [place] | [address] | | | | | [address] | | | | | | [phone] | | | +--------+ + + + [...]
--- OUTSIDE RECORDS SUMMARY | ~2020-06-24 | XMS | Encounter Summary ---
Demographics + + + | Address | [address] [facility] [address] | | | [place] [address] | + + + | Home Phone [...] [place] | | | | | [address] | | + + + + + Care Team Providers + +------+ + | Care Switchboard Operator Assistant Name | Role | Phone | [...] | | [address] | [place], [place] | | | | | [place], [place] | [address] | | | | | [address] | | | | | | [phone] | | | +--------+ + + + [...] 0.83 m/s | | | MV Dec [place]: 2.85 m/s2 MV DecT: 282.89 ms MV E [place]: 0.80 | | | m/s MV E/A Ratio: 0.96 E/E' Sept: 12.59 E' Lat: 0.08 m/s | | | E' Sept: 0.06 m/s RAP: 10 mmHg RV S': 0.11 m/s RVSP: | | | 27.96 mmHg TR maxP.96 mmHg TR Vmax: 2.11 m/s | | | Log Sorter: Authenticated by: Desiree Peterson MD Report Date/Time: | | | -- 22_[id number]_2:31:1 | | + + + + + [...] (A-L): 19.60 | | ml/m2LAAs A2C: 15.44 [id number] A-L A2C: 43.84 mlLAESV MOD A2C: 42.12 mlLALs A2C: | | 4.61 cmLAAs A4C: 14.18 [id number] A-L A4C: 38.73 mlLAESV MOD A4C: 37.04 mlLALs A4C: | | 4.41 cmRAAs: 12.15 ft5LMBPW A-L: 28.54 mlRAESV MOD: 28.66 mlRALs: 4.39 | | cmTAPSE: 2.42 cmAV Env.Ti: 293.94 msAV maxP.18 mmHgAV meanP.09 mmHgAV | | Vmax: 1.88 m/Eddie Vmean: 1.25 m/Eddie VTI: 36.84 cmAVA Vmax: 2.06 cm2AVA (VTI): | | 2.24 ru7AYDE Vmax: 0.00 cm2/m2AVAI (VTI): 0.00 cm2/m2LVOT Env.Ti: 299.59 msLVOT | | maxP.52 mmHgLVOT meanP.65 mmHgLVSI Dopp: 38.55 ml/m2LVSV Dopp: 82.89 | | mlLVOT Vmax: 1.27 m/sLVOT Vmean: 0.91 m/sLVOT VTI: 27.27 cmMV A Te[place]oro: 0.83 m/sMV | | Dec [place]: 2.85 m/s2MV DecT: 282.89 msMV E [place]: 0.80 m/sMV E/A Ratio: 0.96E/E' | | Sept: 12.59E' Lat: 0.08 m/sE' Sept: 0.06 m/sRAP: 10 mmHgRV S': 0.11 m/sRVSP: | | 27.96 mmHgTR maxP.96 mmHgTR Vmax: 2.11 m/s Log Sorter:Authenticated by: | | Desiree Peterson MDReport Date/Time: -- 58_[id number]_4:31:1 IMPRESSION: 1. Overall left | | ventricular [...] A [place]: 0.83 m/s | |MV Dec [place]: 2.85 m/s2 | |MV DecT: 282.89 ms | |MV E [place]: 0.80 m/s | |MV E/A Ratio: 0.96 | |E/E' Sept: 12.59 | |E' Lat: 0.08 m/s | |E' Sept: 0.06 m/s | |RAP: 10 mmHg | |RV S': 0.11 m/s | |RVSP: 27.96 mmHg | |TR maxP.96 mmHg | |TR Vmax: 2.11 m/s | | | |Log Sorter: | |Authenticated by: Desiree Peterson MD | |Report Date/Time: -- 97_[id number]_4:31:1 | | | |IMPRESSION: | |1. Overall [...]
--- OUTSIDE RECORDS SUMMARY | ~2020-06-24 | XMS | Encounter Summary ---
Demographics + + + | Address | [address] [facility] | | | [place] [address] | + + + | Home Phone [...] [place] | | | | | [address] | | + + + + + Care Team Providers + +------+ + | Care Cardiac Exercise Physiologist Name | Role | Phone | + [...] [place] | | | | | | [address] | | | | | | [phone] | | | +--------+ + + + [...]
--- OUTSIDE RECORDS SUMMARY | ~2020-06-24 | XMS | Encounter Summary ---
Demographics + + + | Address | [address] [facility] | | | [place] [address] | + + + | Home Phone [...] [place] | | | | | [address] | | + + + + + Care Team Providers + +------+ + | Care Shuttle Car Operator Name | Role | Phone [...] | Frandy Simons DO | [address] | | | | | of skin | [address] | [place], | | | | | sensation | [address] | [place] | | | | | Arthrodesis | [place] | [address] | | | | | status Left | [address] | Phone: | | | | | leg | Phone: | [phone] | | | | | weakness | [phone] | Fax: | | | | | Procedures | Fax: | [phone] | | | | | MRI Lumbar | [phone] | | | | | | Spine [...] | | | | Disturbance | Frandy A, DO | [address] | | | | | of skin | [address] | [place], | | | | | sensation | [address] | [place] | | | | | Arthrodesis | [place] | [address] | | | | | status Left | [address] | Phone: | | | | | leg | Phone: | [phone] | | | | | weakness | [phone] | Fax: | | | | | Procedures | Fax: | [phone] | | | | | MRI Lumbar | [phone] | | | | | | Spine wo | | | | | | | Contrast | | | +--------+--------+ + + + + Encounter Details +--------+ + + + + | Date | Type | Department | Care Team | Description | +--------+ + + + + | 08/19/ | Hospital | [facility] | Frandy Teresa, | Status post lumbar | | 2013 | Encounter | MED CTR MRI [address] | DO [address] | spinal fusion; Left | | | | [address], | [address] [place] | leg numbness; Left | | | | [place] [address] | [address] | leg weakness | | | | [phone] | | | +--------+ + + + [...] + + + +---------+ + + | [place]-3 Fatty | Take 1,000 mg by | [...] of this encounter Miscellaneous Notes Miscellaneous - [facility] - 09/06/2014 12:00 AM PST documented in [...] the round structure with high T1 and Z1zioktm in the right L3 vertebral | | [...] + | MISCELLANEOUS LAB | | | [phone] | + +---------+ + + | MISCELANIOUS LAB | | | [phone] | + +---------+ + + documented in [...]
--- OUTSIDE RECORDS SUMMARY | ~2020-06-24 | XMS | Encounter Summary ---
Demographics + + + | Address | [address] [facility] | | | [place] [address] | + + + | Home Phone [...] [place] | | | | | [address] | | + + + + + Care Team Providers + +------+ + | Care Glass Cleaning Machine Tender Name | Role | Phone [...] [address] | | | | | [place], [place] | Shaheen Simons | | | | | [address] | [place] [address] | | | | | [phone] | [phone] | | | | | | | [...] GIVEN Testing | | | performed at [facility];[address] [place] [address];[place] [address] CULTURE | | | 50,000 TO 100,000 CFU/ML | | | MIXED GRAM POSITIVE HAIDER NO SUSCEPTIBILITY TO FOLLOW | | | MULTIPLE ORGANISM TYPES PRESENT, | | | SUGGESTIVE OF CONTAMINATION OR COLONIZATION. SUGGEST RECOLLECTION FOR | | | CULTURE. Testing | | | performed at [facility];[address] [place] [address];[place] [address] REPORT | | | STATUS 06/08/2012 FINAL [...]
--- OUTSIDE RECORDS SUMMARY | ~2020-06-24 | XMS | Encounter Summary ---
Demographics + + + | Address | [address] [facility] | | | [place] [address] | + + + | Home Phone [...] [place] | | | | | [address] | | + + + + + Care Team Providers + +------+ + | Care Sewing Teacher Name | Role | Phone | [...] + + | 08/15/ | Documentati | [facility] | Katharine Moncada, | Other (urgent | | 2019 | on | CARDIOLOGY [place] | Technologist | report) | | | | [address] | | | | | | [place] | | | | | | [address] | | | | | | [phone] | | | +--------+ + + + [...]
--- OUTSIDE RECORDS SUMMARY | ~2020-06-24 | XMS | Encounter Summary ---
Demographics + + + | Address | [address] [facility] | | | [place] [address] | + + + | Home Phone [...] [place], [place] | | | | | [address] | | + + + + + Care Team Providers + +------+ + | Care Cable Television Installer Name | Role | Phone | + +------+ + PCP | Unavailable | + +------+ + Encounter Details +--------+ + + + + | Date | Type | Department | Care Team | Description | +--------+ + + + + | 09/10/ | Hospital | [facility] | | | | 1992 | Encounter | [facility] | | | | | | [address] | | | | | | [place] | | | | | | [address] | | | | | | [phone] | | | +--------+ + + + [...]
--- OUTSIDE RECORDS SUMMARY | ~2020-06-24 | XMS | Encounter Summary ---
Demographics + + + | Address | [address] [facility] | | | [place] [address] | + + + | Home Phone [...] [place] | | | | | [address] | | + + + + + Care Team Providers + +------+ + | Care Scuba Diving Instructor Name | Role | Phone | [...] [address] | | | | | | [place], [place] | | | | | | [address] | | | +--------+ + + + [...]
--- OUTSIDE RECORDS SUMMARY | ~2020-06-24 | XMS | Encounter Summary ---
Demographics + + + | Address | [address] [facility] [address] [address] [facility] | | | [place] [address] | + + + | Home Phone [...] [place] | | | | | [address] | | + + + + + Care Team Providers + +------+ + | Care Corporate Tutor Name | Role | Phone | + +------+ + | Adriano Patrick MD | PCP | | + +------+ + Encounter Details +--------+ + + + + | Date | Type | Department | Care Team | Description | +--------+ + + + + | 05/11/ | Documentati | [facility] | Russell Alfaro PA | | | 2016 | on | SLEEP DISORDER [address] | [address] | | | | | [address] [place] | [place], [place] | | | | | [place] [address] | [address] | | | | | [phone] | | | +--------+ + + + [...]
--- OUTSIDE RECORDS SUMMARY | ~2020-06-24 | XMS | Encounter Summary ---
Demographics + + + | Address | [address] [facility] | | | [place] [address] | + + + | Home Phone [...] [place] | | | | | [address] | | + + + + + Care Team Providers + +------+ + | Care Email Marketing Coordinator Name | Role | Phone [...] + | 02/27/ | Telephone | [facility] | Katharine Cardona PA-C | Appointment (New | | 2014 | | MEDICINE [address] | [address] [place] | Patient) | | | | [place], | [place] [address] | | | | | [place] [address] | [phone] | | | | | [phone] | | | +--------+ + + + [...] patients. Those patients are re ferred to [facility]. Cindy stated that would be [...]
--- OUTSIDE RECORDS SUMMARY | ~2020-06-24 | XMS | Encounter Summary ---
Demographics + + + | Address | [address] [facility] [address] | | | [place] [address] | + + + | Home Phone [...] [place] | | | | | [address] | | + + + + + Care Team Providers + +------+ + | Care Auto Body Worker Name | Role | Phone | [...] | | | | | | | [address] | | | | | | | Phone: | | | | | | | [phone] | | | | | | | Fax: | | | | | | | [phone] | | +--------+ + + + + + Reason for Visit + + + | Reason | Comments | + + + | Follow-up | 3 mo po | + + + Encounter Details +--------+---------+ + + + | Date | Type | Department | Care Team | Description | +--------+---------+ + + + | 09/27/ | Office | [facility] | Frandy Teresa, | Lumbar spondylosis | | 2013 | Visit | NEUROSURGERY [address] | DO [address] | (Primary Dx); S/P | | | | [address] | [address] [place], [place] | lumbar fusion | | | | [place], [place] | [address] | | | | | [address] | | | | | | [phone] | | | +--------+---------+ + + + [...] Frandy Teresa DO [address] [facility] [place], [place] [address] FAX: NEUROSURGERY FOLLOW-UP CHIEF COMPLAINT: Chief Complaint [...] Laterality: N/A; Surgeon: Frandy castellanos DO; Location: [facility] MAIN OR CURRENT MEDICATIONS: Current [...] Take 15 mg by mouth nightl y. [place]-3 Fatty Acids (FISH OIL CONCENTRATE) 1000 MG [...] encounter Miscellaneous Notes Miscellaneous - [facility] - 09/27/2014 12:00 AM PST documented in [...]
--- OUTSIDE RECORDS SUMMARY | ~2020-06-24 | XMS | Encounter Summary ---
Demographics + + + | Address | [address] [facility] [address] | | | [place] [address] | + + + | Home Phone [...] [place] | | | | | [address] | | + + + + + Care Team Providers + +------+ + | Care Hospitality Workers Name | Role | Phone | + [...] | | | spondylolist | | [address] | | | | | hesis | | [place], | | | | | Spinal | | [place] [address] | | | | | stenosis, | | Phone: | | | | | lumbar | | [phone] | | | | | region, | | Fax: | | | | | without | | [phone] | | | | | neurogenic | [...] | | | | | | | RI ARTHDSIS | | | | | | [...] | | | | | | ION [place] | | | | | | | [...] | | | | | | SEG [place] | | | | | | | [...] + + | 07/02/ | Hospital | [facility] | Frandy Teresa, | Degenerative disc | | 2013 - | Encounter | MED CTR SURGICAL | DO [address] | disease, lumbar | | | | [address] | [place] [address] | (Primary Dx); | | 07/05/ | | [place] [address] | [phone] | Diabetes mellitus | | 2013 | | [phone] | | ([facility]); Disturbance [...] might be different fro m the original. [facility] DISCHARGE SUMMARY PATIENT NAME: Cindy [...] Stable for discharge to SNF. DISPOSITION: SNF ([facility]) DISCHARGE MEDICATIONS Medications prior to admission [...] Take 15 mg by mouth nightl y. Ogden-3 Fatty Acids (FISH OIL CONCENTRATE) 1000 MG [...] + + + +---------+ + + | Ogden-3 Fatty | Take 1,000 mg by | [...] and MARI drain dc'd no problems. Chris Lnyn PA-C - 07/04/2014 7:43 AM PDT [facility] PROGRESS NOTE Pt. Name/Age/: Cindy Arndt 58 y.o. 1955 Med. Record Number: [id number] Date of admission: 07/02/2014 Subjective: The patient [...] tomorrow with [facility]. D/c mari drain and riley cath today. D/c mergers and acquisitions associate. Patient Active Problem List Diagnosis LUMBAR [...] Chris Nicole, 07/04/2014 7:[address] [facility] Chris Lynn PA-C - 07/03/2014 7:13 AM PDT . [facility] PROGRESS NOTE Pt. Name/Age/: Cindy Arndt 58 y.o. 1955 Med. Record Number: [id number] Date of admission: 07/02/2014 Subjective: The patient [...] Chris Nicole, 07/03/2014 7:13 [facility] oTon perez, KRIS - 07/03/2014 6:50 AM [...] signed by: Frandy Teresa DO, 07/02/2014 11:15 [facility] signed by Frandy Teresa DO at 06/2014 11:15 AM PDTFrandy Teresa DO - 07/02/2014 11:15 AM [id number] [facility], [address] [place] [address] FAX: NEUROSURGERY HISTORY AND PHYSICAL EXAMINATION CHIEF [...] Take 15 mg by mouth nigh tly. Ogden-3 Fatty Acids (FISH OIL CONCENTRATE) 1000 MG [...] has no apparent deficits with short or care home memory. CRANIAL NERVES: II: Acuity is intact. [...] Intrinsics 5 5 Ulnar Intrinsics 5 5 Player Development Manager Strength 5 5 Hip Flexion 5 [...] documented in this en counter Procedure Notes [facility] - 07/12/2014 12:00 AM PDT 14 1:45 PM [facility] - 07/04/2014 12:00 AM PDT [facility] - 07/02/2014 12:00 AM PDT documented in this encounter Miscellaneous Notes Plan of Care - ONBASE [facility] 07/12/2014 12:00 AM PDT iscellaneous - [facility] 07/12/2014 12:00 AM PDTElec tronically signed by Mariah Schulte at 07/12/2014 1:45 PM PDTMiscellaneous - [facility] 07/12/2014 12:00 AM PDT i scellaneous - [facility] - 07/12/2014 12:00 AM PDT lan of Care - Joe Louis RN - 07/05/2014 5:00 PM PDTProb honey: General Plan of Care (Adult, Obstetrics) Goal: Care Plan Shift Summary & Review . Outcome: Adequate for Discharge Date Met: 07/05/14 Pt DCd to [facility] per her request. Did not feel safe [...] TBD) Equipment Recommendations: tub bench;hand held shower head;ems driver;comfort height toilet ( pt. has all necessary [...] PA-C Consultants: none PCP: Natalee Andersen [facility] transferring to: [facility] Provider after transfer: PCP and Dr. Frandy Teresa CODE STATUS: [x] Attempt CPR [] Do not resuscitate If patient is pulseless and not breathing, RN/ALLIED HEALTH TEACHER may pronounce . Advanced Directives included: [...] for this patient. Diet: [] As tolerated DIE MAKER TRIM may upgrade or downgrade diet as condition Indicates. [x] RN may downgrade diet as indicated. Type: [] Continue current diet of: Diet and Supplements Diet DIET CONSISTENT CARBOHYDRATE Number of Occurrences: -1 Days [] Other: Consistency/Precautions: [] Whole [] Thin Liquids [] Cut-up [] [place] Thick [] Advanced Chopped [] Honey Thickened [] Chopped [] Advanced Ground [] 1:1 feedings [] Ground/Pureed [] Other: Tube Feedings: [] PEG [] GT [] JT [] NGT [] Formula type: (Section Leader And Machine Setter may change/substitute if indicated). [] Continuous Rate: [...] & Management for: ____same as above [] DIE MAKER TRIM Evaluation &Management for: [] Other: Wound/Skin Care: [...] Take 15 mg by mouth ni linda. Ogden-3 Fatty Acids (FISH OIL CONCENTRATE) 1000 MG [...] Orders/Instructions: Physician's signature:__Chris Nicole PA-C 07/05/2014 13:18 [facility] NURSING FACILITY USE ONLY: [] Admitting [...] tolerate progressive walking and doing stairs du [facility] hospital stay due to multiple pain c/o. Attempted to see pt. 1145, however had just rec eived pain medication and requested PT return, SPL 9/10. At 1205 pt contacted PT for assist OOB due to left LE spasms and need for position change. Sitting at EOB on arrival, LAWN CARE PROFESSIONAL pres ent. Pt. donned LSO brace, stood [...] of endurance. When patient is walking in [facility] with a regular FWW she has to stop frequently and states she feels very weak, like sh e may fall. Patient lives alone. Outpatient prescriptions are filled at [facility] in [facility]. Electronically signed by: Franca Narvaez RN 07/05/2014 10:43 lan of Adilene Layne Rivers - 07/05/2014 10:39 AM PDTFaxed referral to Gabriela Stout and iLdia Tran. [place] : [id number] and [place]: [id number] Electronically signed by: Layne Collado 07/05/2014 10:40 [...] TBD) Equipment Recommendations: tub bench;hand held shower head;ems driver;comfort height toilet ( pt. has all necessary equipment) Planned Interventions: ADL retraining;transfer training Patient Status/Goals Reflects last filed data of patient status; may be from multiple contributors. Grooming: Status: did not occur today Assist: Utilizes: STG: Status: New Goal:modified independent LTG: Status: Goal: UE Dressing: Status: SBA Assist: Utilizes: STG: Status: Goal: LTG: Status: Goal: LE Dressing: Status: SBA Utilizes: ems driver STG: Status: New Goal: modified independent LTG: [...] bed mobil ity. Pt has been using MEDICAL TECHNICIAN and pain pills during the night. Zofran [...] by herself in a small apartment in [place]. Patient states she has her apartment set [...] to come from [facility] [place]. She states the Said she might benefit [facility] upon discharge. She would like me to contact [facility] to giv e them a heads up. I called and spoke to Summer at [facility] , told her patients PCP i [...] Pt. resting in bed on arrival, used MEDICAL TECHNICIAN x 2 during session. SPL /10. Pt. hoping to urinate keg inspector to straight cath. Sidelying to sit [...] TBD) Equipment Recommendations: tub bench;hand held shower head;ems driver;comfort height toilet ( pt. has all necessary [...] & Review . Outcome: Progressing Pt using MEDICAL TECHNICIAN and PO pain pills, c/o numbness on [...] and on a continuous oximeter for her MEDICAL TECHNICIAN. She was unable to do her IS because o f the medications. She has the IS at bedside with a goal of 2400. She did not require additi onal respiratory care throughout the evening. p Note - Frandy Teresa, DO - 07/02/2014 2:25 PM PDTDATE: 07/02/2014 SURGEON: Frandy Teresa MD. BLACK TOP SPREADER MACHINE OPERATOR: ZANE Oh PREOPERATIVE DIAGNOSES 1. Spondylolisthesis, [...] x 26 mm Capstone PEEK cage from [employer] was chosen. It was filled with Infus [...] Note Cindy Arndt 58 y.o. female 1955 [id number] Proc. Date 07/02/2014 Preop Dx Spondylolisthesis L5-S1 Postop Dx same Procedure Procedure(s):MIS L5-S1 TRANSFORAMINAL LUMBAR INTERBODY FUSION Anesthesia General Surgeon Frandy Teresa DO Special Tester ZANE Oh EBL 100 mL Findings Findings consistent with scheduled procedure. No other abnormalities found. Complications none Specimens * No specimens in log * Drains Electronically signed by: Frandy Teresa DO 07/02/2014 14:22 [facility] documented in this en counter Plan [...] [address] | [place] | [phone] | | [facility] | | [id number] | | | - LABORATORY | | | | + + + + + | [address] [facility] | [address] | [place], [place] | | | [facility] | | [id number] | | | - [...] + | [facility] [facility] | [address] | [place] | [phone] | | [facility] | | [address] | | | - LABORATORY | | | | + + + + + | [address] [facility] | [address] | [place], [place] | | | [facility] | | [id number] | | | - [...] [address] | [place] | [phone] | | [facility] | | [address] | | | - LABORATORY | | | | + + + + + | [address] | [address] | [place] | | | [facility] | | [address] | | | - [...] + | [facility] [facility] | [address] | [place] | [phone] | | [facility] | | [address] | | | - LABORATORY | | | | + + + + + | [facility] [facility] | [address] | [place], [place] | | | [facility] | | [address], [facility] | | | - LABORATORY [...] [address] | [place] | [phone] | | [facility] | | [address] | | | - LABORATORY | | | | + + + + + | [facility] | [address] | [place] | | | [facility] | | [address], [facility] | | | - LABORATORY [...] | | POC | | | [facility] | | | | | [...] + | [facility] [facility] | [address] | [place] | [phone] | | [facility] | | [address] | | | - LABORATORY | | | | + + + + + | [facility] | [address] | [place], [place] | | | [facility] | | [address], [facility] | | | - LABORATORY [...] + | [facility] | [address] | [place], [place] | [phone] | | [facility] | | [address] | | | - LABORATORY | | | | + + + + + | [facility] | [address] | [place] | | | [facility] | | [id number] | | | - [...] | | | POC | | | [facility] | | | | | | MEDICAL [...] + | [facility] | [address] | [place] | [phone] | | [facility] | | [address] | | | - LABORATORY | | | | + + + + + | [facility] | [address] | [place] | | | [facility] | | [address], [facility] | | | - LABORATORY [...] + | [address] [facility] | [address] | [place], [place] | [phone] | | [facility] | | [address] | | | - LABORATORY | | | | + + + + + | [address] | [address] | [place], [place] | | | [facility] | | [id number] [place] [address] | | | - LABORATORY | | [...] | of hardware for posterior fusion from R7dsvyeon S1 with interbody hardware at L5-S1. The [...] + | MISCELLANEOUS LAB | | | [phone] | + +---------+ + + | MISCELANIOUS LAB | | | [phone] | + +---------+ + + POC Glucose [...] [address] | [place] | [phone] | | [facility] | | [address] | | | - LABORATORY | | | | + + + + + | [facility] | [address] | [place], [place] | | | [facility] | | [address], [facility] | | | - LABORATORY [...] + | [facility] | [address] | [place] | [phone] | | [facility] | | [address] | | | - LABORATORY | | | | + + + + + | [facility] | [address] | [place] | | | [facility] | | [address] | | | - [...] [address] | [place] | [phone] | | [facility] | | [address] | | | - LABORATORY | | | | + + + + + | [address] | [address] | [place] | | | [facility] | | [id number] | | | - [...] + | [facility] | [address] | [place] | [phone] | | [facility] | | [address] | | | - LABORATORY | | | | + + + + + | [facility] | [address] | [place], [place] | | | [facility] | | [id number] | | | - LABORATORY [...] [address] | [place] | [phone] | | [facility] | | [address] | | | - LABORATORY | | | | + + + + + | [facility] | [address] | [place] | | | [facility] | | [address], [facility] | | | - LABORATORY [...] | [facility] | | [address] | | | - BLOOD BANK | [...] + +---------+ +---+---+---+ | morphine 5 mg/mL MEDICAL TECHNICIAN syringe | New Bag | 07/02/20 | [...] | | | | Dose(mg): 0, Starting MEDICAL TECHNICIAN | | | | | | | Dose(mg): 1, Incremental Increase | | | | | | | MEDICAL TECHNICIAN Dose(mg): 0.5, Maximum MEDICAL TECHNICIAN | | | | | | | [...]
--- OUTSIDE RECORDS SUMMARY | ~2020-06-24 | XMS | Encounter Summary ---
Demographics + + + | Address | [address] [facility] [address] | | | [place] [address] | + + + | Home Phone [...] [place] | | | | | [address] | | + + + + + Care Team Providers + +------+ + | Care Cisco Engineer Name | Role | Phone | [...] [place] | | | | | | [address] | | | | | | [phone] | | | +--------+ + + + [...]
--- OUTSIDE RECORDS SUMMARY | ~2020-06-24 | XMS | Encounter Summary ---
Demographics + + + | Address | [address] [facility] [address] | | | [place] [address] | + + + | Home Phone [...] [place], [place] | | | | | [address] | | + + + + + Care Team Providers + +------+ + | Care Lining Maker Name | Role | Phone | + +------+ + PCP | Unavailable | + +------+ + Encounter Details +--------+ + + + + | Date | Type | Department | Care Team | Description | +--------+ + + + + | 01/25/ | Hospital | [facility] | | | | 2002 | Encounter | MED CTR XRAY [address] | | | | [address] | | | | | | [place] [address] | | | | | | [phone] | | | +--------+ + + + [...]
--- OUTSIDE RECORDS SUMMARY | ~2020-06-24 | XMS | Encounter Summary ---
Demographics + + + | Address | [address] [facility] [address] | | | [place] [address] | + + + | Home Phone [...] [place] | | | | | [address] | | + + + + + Care Team Providers + +------+ + | Care Provider Scribe Name | Role | Phone | + +------+ + PCP | Unavailable | + +------+ + Encounter Details +--------+ + + + + | Date | Type | Department | Care Team | Description | +--------+ + + + + | 04/16/ | Hospital | [facility] | Deon Gonzales | | | 2005 | Encounter | MED CTR SLEEP | MD [address] | | | | | SUMPTER [address] | [address] [place] | | | | | [place], [place] | [place] [address] | | | | | [address] | [phone] | | | | | [phone] | | | +--------+ + + + [...]
--- OUTSIDE RECORDS SUMMARY | ~2020-06-24 | XMS | Encounter Summary ---
Demographics + + + | Address | [address] [facility] [address] | | | [place] [address] | + + + | Home Phone [...] [place] | | | | | [address] | | + + + + + Care Team Providers + +------+ + | Care Packaging Sales Name | Role | Phone | [...] | 08/26/ | Refill | [facility] | Frandy Teresa, | Medication Refill | | 2013 | | NEUROSURGERY [address] | DO [address] | | | | | [facility] | [address] [place], [place] | | | | | [place], [place] | [id number] | | | | | [address] | | | | | | [phone] | | | +--------+--------+ + + + [...] to notify that p rescription refill for Sims has been authorized. Informed about MRI results per MD results. Also notified about new medication neurontin. Pt verbalized understanding and will notify o ur office if her numbness to bilat feet (upper and lower) doesn't improve. Pt requested refi ll rx of Sims to be mailed via certified mail [facility] signed by Megan Schreiber, RN [...] PSTPt called to requesting medication refill of Sims. Pt c/o l ower back and left [...]
--- OUTSIDE RECORDS SUMMARY | ~2020-06-24 | XMS | Encounter Summary ---
Demographics + + + | Address | [address] [facility] | | | [place] [address] | + + + | Home Phone [...] [place] | | | | | [address] | | + + + + + Care Team Providers + +------+ + | Care Stationary Engineer Apprentice Name | Role | Phone | [...] | | | | | atrial | AREA DEVELOPMENT MANAGER [address] | | | | | fibrillation | [address] | [place] | | | | | History of | [place] [address] | [place], [place] | | | | | stroke | [place], [place] | [address] | | | | | Sinus | [address] | Phone: | | | | | tachycardia | Phone: | [phone] | | | | | by | [phone] | Fax: | | | | | electrocardi | Fax: | [phone] | | | | | ogram New | [phone] | | | | | | onset [...] + + | 01/09/ | Office | [facility] | Roxannmiguel ángelDora | History of atrial | | 2019 | Visit | CARDIOLOGY [place] | [address] | fibrillation | | | | [address] | [address] | (Primary Dx); Benign | | | | [address] | [place] [address] | essential HTN; | | | | [place], [place] | [phone] | History of | | | | [address] | | hypothyroidism; | | | | [phone] | | Stress | | | | [...] an urgent Echo to be done at [place] to follow up on new left bundle [...] of fatigue and shortness of breath. Her [id number] VASC score is 4 (stroke, HTN, gender) [...] go back to volunteering at the local [employer], though this plan will need to be on hold with current epidemic restrictions . She reports after she lost 160 pounds with a gastric sleeve that she was retested for sle ep apnea 2 years ago, and told the results negative, but has not had CPAP for 3 years She has previously seen Dr. Garland in [place], and different sleep provider in [facility] when lived over there. She reports [...] thirst or hunger. Psychiatric/Behavioral: Bipolar/Schizophrenia. Tx'd by [employer] Vaccines: Current on flu vaccine: 2019 Current on pneumonia vaccine:PPSV 23 05/29/2013 Habits/Social : Denies history of smoking. Denies EtOH use. Denies recreational or illici t drug use. Exercises sporadically. Lives in [place] . Outpatient Medications Prior to Visit Medication [...] by mouth nightly. Blood Glucose Monitoring Suppl ([employer] VERIO FLEX SYSTEM) w/Device KIT by Does [...] nonspecific ST-T wave abnormality rate 82 bpm, OH 176 ms, QRS 80 ms, QTC 446 ms tracing personally reviewed by me EK12/17/2019: Sinus tachycardia, nonspecific ST wave abnormalities, rate 105 bpm, OH 196 ms, QRS 74 ms, QTC 430 ms, tracing personally reviewed by me, and compared to EKG performed in February 2019, rate is less well-controlled EK01/10/2020 (metoprolol XL 50 mg twice daily. Normal sinus rhythm, new left bundle bran ch block Rate 74 bpm, OH 204 ms, QRS 138 ms, QTC 488 ms, tracing personally reviewed by me and Dr. Peterson. compared to EKG performed in November, new left bundle branch block, lead III has lower voltage QRS also in aVL and aVF, and improved voltage to anterior leads and rate i s better controlled. LABS Labs: 12/26/2018: ( [facility])CMP: Sodium 139, potassium 4.2, chloride 99, BUN 10, creatinine 0. 7, BNP 28. CBC: WBC 7.8, hemoglobin 14.3, hematocrit 42.7, platelets 214 Labs: 09/28/2019:( [facility]) CBC: WBC 7.8, hemoglobin 14.9, hematocrit 43.8, platelets 221. C MP: Sodium 132, potassium 4.2, chloride 95, AST 76, ALT 76, alk phos 134 Labs: 10/11/2019:( [facility]) CBC: WBC 6.7, RBC 4.97, hemoglobin 15.2, hematocrit 44.7, platel ets 200. CMP: Glucose 385, BUN 7, creatinine 0.62, GFR 97, sodium 131, potassium 4.1, chlor kelby 95, albumin 4.3, total bilirubin 0.6, AST 75, ALT 73, alk phos 144. Thyroid: TSH 4.27 Labs: 10/12/2020:( [facility]) CBC: WBC 7, RBC 4.93, hemoglobin 14.7, hematocrit 44.1, platele ts 186 normal UA CMP: Glucose 381, BUN 6, creatinine 0.63, GFR 95, sodium 133, potassium 3.8 , chloride 97, albumin 4.3, total bili 0.6, AST 62, ALT 75, alk phos 145 thyroid: TSH 3.07 Labs: 10/20/2019:( [facility]) CBC: WBC 7.1, RBC 4.93, hemoglobin [...] and reviewed her EKG results with her night manager, Dr. Peterson, who is in the cli vickie today, and the plan is to get an updated echo to evaluate her for any new wall motion ab normalities. If she has any wall motion abnormalities, she will need to have further evalua tion for ischemic heart disease in [place] such as a stress test or angiogram I reviewed her EKG with her, and discussed this plan with her. The Echo will be ordered on an urgent basis, is currently a restriction on all nonurgent testing at [facility] . She was agreeable to this [...] continuity of care purp ose Preston [facility] 01/10/2020 docume nted in this [...]
--- OUTSIDE RECORDS SUMMARY | ~2020-06-24 | XMS | Encounter Summary ---
Demographics + + + | Address | [address] [facility] | | | [place] [address] | + + + | Home Phone [...] [place] | | | | | [address] | | + + + + + Care Team Providers + +------+ + | Care Photo Colorer Name | Role | Phone | + [...] + + | 05/19/ | Telephone | [facility] | Britt Dora | Other (Cancel | | 2020 | | CARDIOLOGY [place] | [address] | appointment) | | | | [address] | [address] | | | | | [address] | [place] [address] | | | | | [place], [place] | [phone] | | | | | [address] | | | | | | [phone] | | | +--------+ + + + [...] - 05/19/2020 10:42 AM [facility]TCalled [facility] with Dora Mendez [...]
--- OUTSIDE RECORDS SUMMARY | ~2020-06-24 | XMS | Encounter Summary ---
Demographics + + + | Address | [address] [facility] | | | [place] [address] | + + + | Home Phone [...] [place] | | | | | [address] | | + + + + + Care Team Providers + +------+ + | Care Inside Channel Account Manager Name | Role | Phone [...] [address] | | | | | [address] [place], [place] | [place], [place] | | | | | [address] | [address] | | | | | [phone] | | | +--------+ + + + [...]
--- OUTSIDE RECORDS SUMMARY | ~2020-06-24 | XMS | Encounter Summary ---
Demographics + + + | Address | [address] [facility] [address] | | | [place] [address] | + + + | Home Phone [...] [place], [place] | | | | | [address] | | + + + + + Care Team Providers + +------+ + | Care Staff Air Defense Officer Name | Role | Phone | [...] [phone] | | | | | | [place], [place] | | | | | | [address] | | | | | | [phone] | | | +--------+ + + + [...]
--- OUTSIDE RECORDS SUMMARY | ~2020-06-24 | XMS | Encounter Summary ---
Demographics + + + | Address | [address] [facility] | | | [place] [address] | + + + | Home Phone [...] [place] | | | | | [address] | | + + + + + Care Team Providers + +------+ + | Care Screening Tech Name | Role | Phone | + +------+ + PCP | Unavailable | + +------+ + Encounter Details +--------+ + + + + | Date | Type | Department | Care Team | Description | +--------+ + + + + | 05/23/ | Hospital | [facility] | [place], | | | 2011 | Encounter | MED CTR XRAY [address] | MD [address] | | | | | [place] | [place] | | | | | [place] [address] | [address] | | | | | [phone] | | | +--------+ + + + [...] + + + +---------+ + + | Dorris-3 Fatty | Take 1,000 mg by | [...] [facility] Diagnostic Imaging Department | [facility] | | [address], [facility] | [facility] | | LUMBAR SPINE MR WITHOUT [...] Transcribed Date/Time: | | | 05/23/2012 16:55 Molder Punch: <Electronically Signed | | | by Adriano Anne MD> 05/23/12 5418 | | + + + + + | Procedure Note | + + | Manohar Martinez Conversion - 11/30/2013 5:47 PM [facility] | | Diagnostic Imaging Department [address] [place] [address] | | LUMBAR SPINE MR WITHOUT CONTRAST, [...] 16:37 | |Transcribed Date/Time: 05/23/2012 16:55 | |Molder Punch: | |<Electronically Signed by Adriano Anne MD> [...]
--- OUTSIDE RECORDS SUMMARY | ~2020-06-24 | XMS | Encounter Summary ---
Demographics + + + | Address | [address] [facility] [address] [facility] | | | [place] [address] | + + + | Home Phone [...] [place] | | | | | [address] | | + + + + + Care Team Providers + +------+ + | Care Proposal Rep Name | Role | Phone | [...] | Frandy Simons DO | [address] | | | | | of skin | [address] | [place], | | | | | sensation | [address] | [place] | | | | | Arthrodesis | [place] | [address] | | | | | status Left | [id number] | Phone: | | | | | leg | Phone: | [phone] | | | | | weakness | [phone] | Fax: | | | | | Procedures | Fax: | [phone] | | | | | MRI Lumbar | [phone] | | | | | | Spine [...] [address] | [address] [place], [place] | | | | | [place], [place] | [address] | | | | | [address] | | | | | | [phone] | | | +--------+ + + + [...] scheduled cindy for her MRI here at [facility] on 08/19. SAHYNE ARAGON elephone Encounte r - Brii, Frandy [...] the round structure with high T1 and L7ocbgil in the right L3 vertebral | | [...] + | MISCELLANEOUS LAB | | | [phone] | + +---------+ + + | MISCELANIOUS LAB | | | [phone] | + +---------+ + + documented in [...]
--- OUTSIDE RECORDS SUMMARY | ~2020-06-24 | XMS | Encounter Summary ---
Demographics + + + | Address | [address] [facility] [facility] [address] [facility] | | | [place] [address] | + + + | Home Phone [...] [place] | | | | | [address] | | + + + + + Care Team Providers + +------+ + | Care Technology Education Instructor Name | Role | Phone | [...] report) | | | | [address] | | | | | | [place] | | | | | | [address] | | | | | | [phone] | | | +--------+ + + + [...]
--- OUTSIDE RECORDS SUMMARY | ~2020-06-24 | XMS | Encounter Summary ---
Demographics + + + | Address | [address] [facility] [address] [facility] | | | [place] [address] | + + + | Home Phone [...] [place] | | | | | [address] | | + + + + + Care Team Providers + +------+ + | Care Softlines Supervisor Name | Role | Phone | + +------+ + | Basim Bolanos MD | PCP | | + +------+ + Encounter Details +--------+ + + + + | Date | Type | Department | Care Team | Description | +--------+ + + + + | 01/24/ | Abstract | [facility] [place] | [facility], | | | 2012 | | GASTROENTEROLOGY | FORTUNATO Thomas [address] | | | | | [address] | [address] | | | | | [address] [place], [place] | [place], [place] | | | | | [address] | [address] | | | | | [phone] | | | +--------+ + + + [...]
--- OUTSIDE RECORDS SUMMARY | ~2020-06-24 | XMS | Encounter Summary ---
Demographics + + + | Address | [address] [facility] | | | [place] [address] | + + + | Home Phone [...] [place] | | | | | [address] | | + + + + + Care Team Providers + +------+ + | Care Associate Genetics Professor Name | Role | Phone | + +------+ + PCP | Unavailable | + +------+ + Encounter Details +--------+ + + + + | Date | Type | Department | Care Team | Description | +--------+ + + + + | 12/09/ | Hospital | [facility] | Serafin Bautista | | | 2011 | Encounter | MED CTR XRAY [address] | T, [address] | | | | | [place] | [address] [place] | | | | | [place] [address] | [address] | | | | | [phone] | | | +--------+ + + + [...] Performed At | + + + | [facility] Diagnostic Imaging Department | [facility] | | [address] [place] [facility] | [facility] | | PROCEDURE NOTE EPIDURAL | DIAG [...] Manohar Martinez Conversion - 11/30/2013 4:45 PM [facility] | | Diagnostic Imaging Department [...]
--- OUTSIDE RECORDS SUMMARY | ~2020-06-24 | XMS | Encounter Summary ---
Demographics + + + | Address | [address] [facility] [address] [facility] | | | [place] [address] | + + + | Home Phone [...] [place] | | | | | [address] | | + + + + + Care Team Providers + +------+ + | Care Log Scaler Name | Role | Phone | + [...] + + | 03/07/ | Telephone | [facility] | Katharine Cardona PA-C | Results | | 2014 | | MEDICINE [place] | [address] [facility] | | | | | [address] | [place] [address] | | | | | [place], [place] | [phone] | | | | | [address] | | | | | | [phone] | | | +--------+ + + + [...] Miscellaneous Notes Telephone Encounter - Adrianne Horton, Payable Manager - 03/11/2015 3:41 PM PDTCalled Pat and delivered her results. Patient verbalized good understanding. elephone Encounter - Adrianne Horton , Payable Manager - 03/11/2015 8:40 AM PDTCall placed to [...]
--- OUTSIDE RECORDS SUMMARY | ~2020-06-24 | XMS | Encounter Summary ---
Demographics + + + | Address | [address] [facility] | | | [place] [address] | + + + | Home Phone [...] [place] | | | | | [address] | | + + + + + Care Team Providers + +------+ + | Care Gas Turbine Assembler Name | Role | Phone | + +------+ + | Natalee Andersen NP | PCP | | + +------+ + Encounter Details +--------+ + + + + | Date | Type | Department | Care Team | Description | +--------+ + + + + | 07/06/ | Hospital | [facility] | Latricia Feliciano | | | 2014 | Encounter | MED CTR ACUTE | D, PT [address] | | | | | PHYSICAL THERAPY | [place]IE [place] | | | | | [address] [place] | [address] | | | | | [place] [address] | | | | | | [phone] | | | +--------+ + + + [...] + + + +---------+ + + | [place]-3 Fatty | Take 1,000 mg by | [...]
--- OUTSIDE RECORDS SUMMARY | ~2020-06-24 | XMS | Encounter Summary ---
Demographics + + + | Address | [address] [facility] | | | [place] [address] | + + + | Home Phone [...] [place] | | | | | [address] | | + + + + + Care Team Providers + +------+ + | Care Racing Car Driver Name | Role | Phone [...] + | 07/01/ | Telephone | [facility] | Frandy Teresa, | Other (Surgery ) | | 2013 | | NEUROSURGERY [address] | DO [address] | | | | | [address] | [address] [place], [place] | | | | | [place], [place] | [id number] | | | | | [address] | | | | | | [phone] | | | +--------+ + + + [...]
--- OUTSIDE RECORDS SUMMARY | ~2020-06-24 | XMS | Encounter Summary ---
Demographics + + + | Address | [address] [address] [facility] | | | [place] [address] | + + + | Home Phone [...] [place] | | | | | [address] | | + + + + + Care Team Providers + +------+ + | Care Recycle Worker Name | Role | Phone | + +------+ + PCP | Unavailable | + +------+ + Encounter Details +--------+ + + + + | Date | Type | Department | Care Team | Description | +--------+ + + + + | 02/02/ | Hospital | [facility] | Serafin Bautista | | | 2011 | Encounter | MED CTR XRAY [address] | T, [address] | | | | | [place] | [address] [place] | | | | | [place] [address] | [address] | | | | | [phone] | | | +--------+ + + + [...] Performed At | + + + | [facility] Diagnostic Imaging Department | [place] | | [address] [facility] | [facility] [...] Transcribed Date/Time: | | | 02/03/2012 18:45 Chainstitch Hemmer: <Electronically Signed | | | by Serafin Bautista MD> 02/14/12 0916 | | + + + + + | Procedure Note | + + | Juan, Rad Conversion - 11/30/2013 5:[address] [facility] | | Diagnostic Imaging Department | | [address] [facility] | | | | | | [...] | Transcribed Date/Time: 02/03/2012 18:45 | | Chainstitch Hemmer: MAHIN | | <Electronically Signed by Serafin [...]
--- OUTSIDE RECORDS SUMMARY | ~2020-06-24 | XMS | Encounter Summary ---
Demographics + + + | Address | [address] [facility] | | | [place] [address] | + + + | Home Phone [...] [place] | | | | | [address] | | + + + + + Care Team Providers + +------+ + | Care Limousine Driver Name | Role | Phone | [...] | | [address] | [place] [address] | | | | | [place] | [phone] | | | | | [address] | | | | | | [phone] | | | +--------+ + + + [...] Percocet prescription and faxed it to them ([facility]) this morning like I told them I would. Thank you for doing that, but it should not have been necessary. Telephone Encounter - Lincoln Cheema MD - 07/06/2014 8:59 PM PDTCalled regarding increased p ain. She was taking percocet. She was discharged to a [facility] on hydrocodone. I talked to the [...]
--- OUTSIDE RECORDS SUMMARY | ~2020-06-24 | XMS | Encounter Summary ---
Demographics + + + | Address | [address] [address] [facility] | | | [place] [address] | + + + | Home Phone [...] [place] | | | | | [address] | | + + + + + Care Team Providers + +------+ + | Care Cable Television Access Coordinator Name | Role | Phone | [...] + + | 05/23/ | Telephone | [facility] | Desiree Peterson DO | Chest Pain | | 2020 | | CARDIOLOGY [place] | [address] | | | | | [address] | [place], [place] | | | | | [place], [place] | [address] | | | | | [address] | | | | | | [phone] | | | +--------+ + + + [...] Protocols, 4th Edition by Lincoln Cullen MD [facility]. Chest Pain protocol was used. documented in this encounter Plan of Treatment Not on filedocumented as of this encounter Visit Diagnoses Not on filedocumented in this encounter
--- OUTSIDE RECORDS SUMMARY | ~2020-06-24 | XMS | Encounter Summary ---
Demographics + + + | Address | [address] [facility] [address] [facility] | | | [place] [address] | + + + | Home Phone [...] [place] | | | | | [address] | | + + + + + Care Team Providers + +------+ + | Care Coagulating Operator Name | Role | Phone | [...] + + | 08/13/ | Documentati | [facility] | Katharine Moncada, | Other (urgent | | 2019 | on | CARDIOLOGY [place] | Technologist | report) | | | | [address] | | | | | | [place] | | | | | | [address] | | | | | | [phone] | | | +--------+ + + + [...]
--- OUTSIDE RECORDS SUMMARY | ~2020-06-24 | XMS | Encounter Summary ---
Demographics + + + | Address | [address] [facility] | | | [place] [address] | + + + | Home Phone [...] [place] | | | | | [address] | | + + + + + Care Team Providers + +------+ + | Care Telegraphic Service Dispatcher Name | Role | Phone | + +------+ + | Basim Bolanos MD | PCP | | + +------+ + Encounter Details +--------+ + + + + | Date | Type | Department | Care Team | Description | +--------+ + + + + | 03/30/ | Hospital | [facility] | Tyrese Neely MD | | | 2012 | Encounter | MED CTR MP INTRA OP | [address], [place] | | | | | [address] | [address] [place], [place] | | | | | [place], [place] | [address] | | | | | [address] | | | | | | [phone] | | | +--------+ + + + [...] + + + +---------+ + + | [place]-3 Fatty | Take 1,000 mg by | [...] Neely MD - 03/30/2013 12:10 [place] [address] Patient Name: CINDY ARNDT Provider: Tyrese Neely MD Unit #: [id number] [facility] 1955 Patient Name: Cindy Arndt Gender: F Procedure Date: 03/30/2013 12:10 PM Date of : 1955 Age: 57 Admit Type: Outpatient Room: Endo Room 1 Note Status: Finalized Attending MD: Tyrese Neely MD Procedure: Upper GI endoscopy Indications: Epigastric abdominal pain Providers: Tyrese Neely MD, Vanesa Anne RN, Yesenia Downing, Grey Goods Marker, Guillermo Ortiz MD (Anesthesia Staff) Referring MD: [...] physician, the nurse, the anesthesiologist and the ecg technician. The procedure was verified in the [...] + | [facility] | [address] | [place] | [phone] | | [facility] | | [address] | | | - LABORATORY | | | | + + + + + | [facility] | [address] | [place] | | | [facility] | | [id number] [place] [address] | | | - LABORATORY | | [...] ST. | [address] | [place] | [phone] | | [facility] | | [address] | | | - LABORATORY | | | | + + + + + | [facility] | [address] | [place] | | | [facility] | | [address] [place] [address] | | | - LABORATORY | | | | + + + + + documented in this encounter Visit Diagnoses Not on filedocumented in this encounter"
--- OUTSIDE RECORDS SUMMARY | ~2020-06-24 | XMS | Encounter Summary ---
Demographics + + + | Address | [address] [address] [facility] | | | [place] [address] | + + + | Home Phone [...] [place] | | | | | [address] | | + + + + + Care Team Providers + +------+ + | Care Graphic Design Intern Name | Role | Phone | + +------+ + | Natalee Andersen NP | PCP | | + +------+ + Encounter Details +--------+ + + + + | Date | Type | Department | Care Team | Description | +--------+ + + + + | 09/27/ | Hospital | [facility] | Frandy Teresa, | Lumbar spondylosis; | | 2013 | Encounter | MED CTR XRAY [address] | DO [address] | S/P lumbar fusion | | | | [place] | [address] [place], [place] | | | | | [place] [address] | [address] | | | | | [phone] | | | +--------+ + + + [...] + + + +---------+ + + | [place]-3 Fatty | Take 1,000 mg by | [...] + | MISCELLANEOUS LAB | | | [phone] | + +---------+ + + | MISCELANIOUS LAB | | | [phone] | + +---------+ + + documented in this encounter Visit Diagnoses + + | Diagnosis | + + | Lumbar spondylosis Lumbosacral spondylosis without myelopathy | + + | S/P lumbar fusion Arthrodesis status | + + documented in this encounter"
--- OUTSIDE RECORDS SUMMARY | ~2020-06-24 | XMS | Encounter Summary ---
Demographics + + + | Address | [address] [facility] | | | [place] [address] | + + + | Home Phone [...] [place] | | | | | [address] | | + + + + + Care Team Providers + +------+ + | Care Production Support Consultant Name | Role | Phone | [...] | 12/03/ | Refill | [facility] [place] | Frandy Teresa, | Medication Refill | | 2014 | | NEUROSURGERY [address] | DO [address] | | | | | [address] [facility] | [address] [place], [place] | | | | | [place], [place] | [id number] | | | | | [address] | | | | | | [phone] | | | +--------+--------+ + + + [...] Art Andersen NP Chart notes faxed to [phone] along with medication list. Sent request to update contac t information in [employer] To Kathy @ [facility] Support Team documented in this encounter Plan of Treatment Not on filedocumented as of this encounter Visit Diagnoses Not on filedocumented in this encounter"
--- OUTSIDE RECORDS SUMMARY | ~2020-06-24 | XMS | Encounter Summary ---
Demographics + + + | Address | [address] [facility] [address] [facility] | | | [place] [address] | + + + | Home Phone [...] [place] | | | | | [address] | | + + + + + Care Team Providers + +------+ + | Care Physics Technician Name | Role | Phone | [...] + + | 02/05/ | Telephone | [facility] | Ashley Chávez | Other (Patient | | 2020 | | CARDIOLOGY [place] | Pollo, Lye Bath Operator | ) | | | | [address] | | | | | | [place] | | | | | | [address] | | | | | | [phone] | | | +--------+ + + + [...] encounter Miscellaneous Notes Telephone Encounter - BrittDora, DIP UNIT OPERATOR - 02/07/2020 3:12 PM PDTI called her [...] . elephone Enco irma - Ashley Chávez, Lye Bath Operator - 02/06/2020 2:53 PM PDTPatient states [...]
--- OUTSIDE RECORDS SUMMARY | ~2020-06-24 | XMS | Encounter Summary ---
Demographics + + + | Address | [address] [facility] | | | [place] [address] | + + + | Home Phone [...] [place] | | | | | [address] | | + + + + + Care Team Providers + +------+ + | Care Log Handler Name | Role | Phone | [...] + | 02/01/ | Telephone | [facility] | Frandy Teresa, | Imaging Only | | 2018 | | NEUROSURGERY [address] | DO [address] | | | | | [address] | [address] [place], [place] | | | | | [place], [place] | [id number] | | | | | [address] | | | | | | [phone] | | | +--------+ + + + [...]
--- OUTSIDE RECORDS SUMMARY | ~2020-06-24 | XMS | Encounter Summary ---
Demographics + + + | Address | [address] [facility] [facility] | | | [place] [address] | + + + | Home Phone [...] [place] | | | | | [address] | | + + + + + Care Team Providers + +------+ + | Care Production Operations Engineer Name | Role | Phone [...] updated | | | | | [address] [facility], | address | | | | | [address] [place] | | | | | | [place] [address] | | | | | | [phone] | | | +--------+ + + + [...]
--- OUTSIDE RECORDS SUMMARY | ~2020-06-24 | XMS | Encounter Summary ---
Demographics + + + | Address | [address] [facility] [address] [facility] | | | [place] [address] | + + + | Home Phone [...] [place] | | | | | [address] | | + + + + + Care Team Providers + +------+ + | Care Dry Kiln Worker Name | Role | Phone | + +------+ + | Hari Samson DO | PCP | | + +------+ + Encounter Details +--------+ + + + + | Date | Type | Department | Care Team | Description | +--------+ + + + + | 06/12/ | Hospital | [facility] | Frandy Teresa, | No Show | | 2014 | Encounter | MED CTR | DO [address] | | | | | ELECTRODIAGNOSTICS | [address] [place], [place] | | | | | [address] [place] | [address] | | | | | [place] [address] | | | | | | [phone] | | | +--------+ + + + [...]
--- OUTSIDE RECORDS SUMMARY | ~2020-06-24 | XMS | Encounter Summary ---
Demographics + + + | Address | [address] [facility] [address] [facility] | | | [place] [address] | + + + | Home Phone [...] [place] | | | | | [address] | | + + + + + Care Team Providers + +------+ + | Care Enterprise Systems Administrator Name | Role | Phone | + +------+ + PCP | Unavailable | + +------+ + Encounter Details +--------+ + + + + | Date | Type | Department | Care Team | Description | +--------+ + + + + | 03/11/ | Hospital | [facility] | Deon Gonzales | | | 2005 | Encounter | MED CTR SLEEP | MD [address] | | | | | [place] [address] | [address] [place] | | | | | [place], [place] | [place] [address] | | | | | [address] | [phone] | | | | | [phone] | | | +--------+ + + + [...]
--- OUTSIDE RECORDS SUMMARY | ~2020-06-24 | XMS | Encounter Summary ---
Demographics + + + | Address | [address] [facility] [address] [facility] | | | [place] [address] | + + + | Home Phone [...] [place] | | | | | [address] | | + + + + + Care Team Providers + +------+ + | Care Commercial Sales Manager Name | Role | Phone | + +------+ + PCP | Unavailable | + +------+ + Encounter Details +--------+ + + + + | Date | Type | Department | Care Team | Description | +--------+ + + + + | 05/25/ | Hospital | [facility] | | | | 1991 | Encounter | MED CTR LABORATORY | | | | | | [address] | | | | | | [place] | | | | | | [address] | | | | | | [phone] | | | +--------+ + + + [...]
--- OUTSIDE RECORDS SUMMARY | ~2020-06-24 | XMS | Encounter Summary ---
Demographics + + + | Address | [address] [facility] [address] [facility] | | | [place] [address] | + + + | Home Phone [...] [place] | | | | | [address] | | + + + + + Care Team Providers + +------+ + | Care Small Business Director Name | Role | Phone | [...] + | 08/16/ | Documentati | [facility] | Katharine Moncada, | Other (urgent | | 2019 | on | CARDIOLOGY [place] | Technologist | report) | | | | [address] | | | | | | [place] | | | | | | [address] | | | | | | [phone] | | | +--------+ + + + [...]
--- OUTSIDE RECORDS SUMMARY | ~2020-06-24 | XMS | Encounter Summary ---
Demographics + + + | Address | [address] [facility] | | | [place] [address] | + + + | Home Phone [...] [place] | | | | | [address] | | + + + + + Care Team Providers + +------+ + | Care Records Coordinator Name | Role | Phone [...] [place] | | | | | [place] [address] | [address] | | | | | [phone] | | | +--------+ + + + [...]
--- OUTSIDE RECORDS SUMMARY | ~2020-06-24 | XMS | Encounter Summary ---
Demographics + + + | Address | [address] [facility] | | | [place] [address] | + + + | Home Phone [...] [place] | | | | | [address] | | + + + + + Care Team Providers + +------+ + | Care Sales Assistant Institutional Sales Name | Role | Phone | [...] + + | 08/20/ | Documentati | [facility] | Katharine Moncada, | Other (urgent | | 2019 | on | CARDIOLOGY [place] | Technologist | report) | | | | [address] | | | | | | [place] | | | | | | [address] | | | | | | [phone] | | | +--------+ + + + [...]
--- OUTSIDE RECORDS SUMMARY | ~2020-06-24 | XMS | Encounter Summary ---
Demographics + + + | Address | [address] [facility] | | | [place] [address] | + + + | Home Phone [...] [place] | | | | | [address] | | + + + + + Care Team Providers + +------+ + | Care Pattern Hand Name | Role | Phone | [...] + + | 08/09/ | Clinical | [facility] | Desiree Peterson DO | Syncope, unspecified | | 2019 | Support | CARDIOLOGY [place] | [address] | syncope type | | | | [address] | [place], [place] | | | | | [place] [address] | [address] | | | | | [place] | | | | | | [address] | Dora [address] [place] Torre | | | | | [phone] | CAROLINE Mendez [address] | | | | | [address] [place] [address] | | | | | | [place] [address] | | | | | | [phone] | | | | | | | [...]
--- OUTSIDE RECORDS SUMMARY | ~2020-06-24 | XMS | Encounter Summary ---
Demographics + + + | Address | [address] [facility] | | | [place] [address] | + + + | Home Phone [...] [place] | | | | | [address] | | + + + + + Care Team Providers + +------+ + | Care Jacquard Loom Heddles Tier Name | Role | Phone | [...] | 05/13/ | Telephone | [facility] | Frandy Teresa, | Other | | 2013 | | NEUROSURGERY [address] | DO [address] | | | | | [address] | [address] [place], [place] | | | | | [place], [place] | [id number] | | | | | [address] | | | | | | [phone] | | | +--------+ + + + [...]
--- OUTSIDE RECORDS SUMMARY | ~2020-06-24 | XMS | Encounter Summary ---
Demographics + + + | Address | [address] [address] [facility] [address] [facility] | | | [place] [address] | + + + | Home Phone [...] [place] | | | | | [address] | | + + + + + Care Team Providers + +------+ + | Care Burring Wheel Operator Name | Role | Phone | [...] | 09/10/ | Documentati | [facility] | Katharine Moncada, | Other (urgent | | 2019 | on | CARDIOLOGY GENESIS | Technologist | report) | | | | [address] | | | | | | [place] | | | | | | [address] | | | | | | [phone] | | | +--------+ + + + [...]
--- OUTSIDE RECORDS SUMMARY | ~2020-06-24 | XMS | Encounter Summary ---
Demographics + + + | Address | [address] [facility] | | | [place] [address] | + + + | Home Phone [...] [place] | | | | | [address] | | + + + + + Care Team Providers + +------+ + | Care Radio Commentator Name | Role | Phone | + [...] | | | | | mellitus, | [address] | [place] | | | | | controlled | Phone: | [address] | | | | | (HCC) | [phone] | Phone: | | | | | History of | Fax: | [phone] | | | | | gastric | [phone] | Fax: | | | | | restrictive | | [phone] | | | | | surgery | [...] | Required | | hypertension | [address] [facility] | | | | | Lumbar | AVE [place] | [address] | | | | | radiculopath | [place], [place] | AVE | | | | | y Type 2 | [address] | [place] | | | | | diabetes | Phone: | [address] | | | | | mellitus, | [phone] | Phone: | | | | | controlled | Fax: | [phone] | | | | | (HCC) | [phone] | Fax: | | | | | Obesity, | | [phone] | | | | | Class III, [...] | | FOR[facility]AT[facility] & Katharine BUCIO in [place]. | + + + | Other | [...] | Office | [facility] | Katharine Cardona PA-C | Hypothyroidism due | | 2015 | Visit | MEDICINE [address] [place] | to acquired atrophy | | | | [address] [place] [address], | [place] [address] | of thyroid (Primary | | | | [place] [address] | [phone] | Dx); Essential | | | | [phone] | | hypertension; Iron | | | [...] Stroke | | | | | | ([facility]); Environmental | | | [...] | | | | | | obesity) ([facility]); | | | | | | Type 2 diabetes | | | | | | mellitus, controlled | | | | | | ([facility]); Preventative | | | [...] t be different from the original. Ask [facility] if they think it might be helpful [...] Cont your meds as prescribed. F/U with [facility] as scheduled Neuropathy Continue gabapentin. May consider increase if pain is not controlled. May benefit from switching from Paxil to one of the SNRIs or TCAs for analgesic effects, ho manju, she is doing so well on her current regimen it may not be worth making any changes an d find alternate ways to deal with the pain. Would be worth discussing with [facility] Psych Back Pain Will refer to water therapy (aqua fitness) at [facility] as request ed. ROGERS [...] Colonoscopy procedures 4. Schizoaffective disorder, bipolar type ([facility]) 5. Neuropathy Vitamin B-12 6. BACK PAIN, LUMBAR, WITH RADICULOPATHY Ambulatory referral to Physical Therapy 7. ROGERS on CPAP 8. Stroke ([facility]) 9. Environmental and seasonal allergies fluticasone (FLONASE) 50 mcg/nasal spray 10. Gastroesophageal reflux disease without esophagitis dexlansoprazole (DEXILANT) 60 mg D R capsule 11. History of gastric restrictive surgery Vitamin D, 25-Hydroxy Nutrition Services - External - AMB Referral 12. Obesity, Class III, BMI 40-49.9 (morbid obesity) ([facility]) Ambulatory referral to Physical Therapy Nutrition Services - External - AMB Referral 13. Type 2 diabetes mellitus, controlled ([facility]) Ambulatory referral to Physical [...] Cont your meds as prescribed. [facility] Neuropathy Continue gabapentin. May consider [...] the pain. Would be worth discussing with [facility] professional. Back Pain Will refer to water therapy (aqua fitness) at [facility] as request ed. Cont [...] plan. The above note was dictated using [employer] voice recognition software. It may have not been proofread in entirety. Minor errors in grammar may occur. CHIEF COMPLAINT Chief Complaint Patient presents with Establish Care Presents to establish care. Former patient of [facility] in [place]. Other Possible stroke January 2015. Is now seeing Dr. Newman, changed to Plavix 02-27-15 from [facility]. Diabetes NIDDM. Checks blood sugars almost daily, [...] auditory, at 36. 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 She is now very well controlled on Saphris, Depakote, and Paxi l. She is followed by [facility] in [place]. She has DM2 that is well controlled [...] DO; Location: [facility] MAIN OR SOCIAL HISTORY History Social [...] mg by mouth Daily. Cholecalciferol (VITAMIN D-3) 89797 units CAPS Oral Take 50,000 Units by [...] Oral Take 10 mg by mouth nightly. [place]-3 Fatty Acids (FISH OIL CONCENTRATE) 1000 [...] | | | | | | controlled ([facility]) | | | | | | Obesity, Class III, | | | | | | BMI 40-49.9 (morbid | | | | | | obesity) ([facility]) | | + + +--------+ + + | Nutrition Services - | Outpatient | Routin | Iron deficiency | Ordered: 03/06/2015 | | External - AMB | Referral | e | anemia Type 2 | | | Referral | | | diabetes mellitus, | | | | | | controlled ([facility]) | | | | | | History of gastric | | | | | | restrictive surgery | | | | | | Obesity, Class III, | | | | | | BMI 40-49.9 (morbid | | | | | | obesity) ([facility]) | | + + [...] | | MEDICAL | | | | mL/min/1.79d2Blzr than | | CENTER - | | [...] + | [facility] | [address] | [place] | [phone] | | [facility] | | [address] | | | - LABORATORY | | [...] + + | Schizoaffective disorder, bipolar type ([facility]) Schizoaffective disorder, unspecified | | [...]
--- OUTSIDE RECORDS SUMMARY | ~2020-06-24 | XMS | Encounter Summary ---
Demographics + + + | Address | [address] [facility] | | | [place] [address] | + + + | Home Phone [...] [place] | | | | | [address] | | + + + + + Care Team Providers + +------+ + | Care Retail Merchandiser Name | Role | Phone | + [...] | | | | | | | [address] | | | | | | | Phone: | | | | | | | [phone] | | | | | | | Fax: | | | | | | | [phone] | | +--------+--------+ + + + + Encounter Details +--------+---------+ + + + | Date | Type | Department | Care Team | Description | +--------+---------+ + + + | 02/27/ | Office | [facility] | Baudilio Newman | Neuropathy (Primary | | 2015 | Visit | NEUROLOGY LAURIE | MD Pollo Need updated | Dx); Sleep apnea; | | | | [address] [facility], | address | Stroke (HCC); | | | | [address] [place] | | Thyroid disease | | | | [place] [address] | | | | | | [phone] | | | +--------+---------+ + + + [...] supply of blood, brain tissue quickly dies. [phone] [employer]. [address] [place] [address]. All righ ts reserved. This information is not intended as a substitute for professional medical care. Always follow your healthcare professional's instructions. documented in this encounter Progress Notes Baudilio Newman MD - 02/27/2015 10:31 AM PDTFormatting of this note might be differen t from the original. Baudilio Newman MD [address] [place] [address], [address] [place] [address] Neurology Outpatient New Patient Note Referring Provider: [...] history. Notes from her recent hospitalization at [facility] [place] were reviewed in detail. Ms. Arndt started feeling off in the evening of 02/01. She felt dizzy and laid down to slee p. Upon waking, she felt her right side was numb. She tried to get up to go to the bathroom and realized she was weak as well on the right. She was taken to [facility] where she was diagnosed with a [...] systol ically. She was reevaluated in the [facility] ED for one such event and [...] hospitalization . This specimen was characterized at [facility], but the report is not currently available for [facility]. Unfortunately, Ms. Arndt notes that her [...] N/A; Surgeon: Frandy castellanos DO; Location: [facility] MAIN OR Current Medications: Outpatient [...] tablet Take 15 mg by mouth nightly. [place]-3 Fatty Acids (FISH OIL CONCENTRATE) 1000 MG [...] BMI 46.04 kg /m2 Neck Circumference: 14" Nezperce Sleepiness Scale: 2 General: well developed and [...] Romberg test negative Radiographic Review: CTA from [place] reviewed on iSITE. No significant stenoses seen [...] No results found for this basename: hba1c, pbj6vok, ldl, ldldirect, ldlext, dldlex Lab Results Component [...]
--- OUTSIDE RECORDS SUMMARY | ~2020-06-24 | XMS | Encounter Summary ---
Demographics + + + | Address | [address] [facility] | | | [place] [address] | + + + | Home Phone [...] [place] | | | | | [address] | | + + + + + Care Team Providers + +------+ + | Care Resource Manager Name | Role | Phone [...] | 03/10/ | Refill | [facility] | Katharine Cardona PA-C | Medication Refill | | 2014 | | MEDIC[address] | | | | | [address], | [place] [address] | | | | | [place] [address] | [phone] | | | | | [phone] | | | +--------+--------+ + + + [...]
--- OUTSIDE RECORDS SUMMARY | ~2020-06-24 | XMS | Encounter Summary ---
Demographics + + + | Address | [address] [facility] | | | [place] [address] | + + + | Home Phone [...] [place] | | | | | [address] | | + + + + + Care Team Providers + +------+ + | Care Agriculture Inspector Name | Role | Phone | + +------+ + PCP | Unavailable | + +------+ + Encounter Details +--------+ + + + + | Date | Type | Department | Care Team | Description | +--------+ + + + + | 09/23/ | Hospital | [facility] | | | | 1994 | Encounter | MED CTR LABORATORY | | | | | | [address] | | | | | | [place] | | | | | | [address] | | | | | | [phone] | | | +--------+ + + + [...]
--- OUTSIDE RECORDS SUMMARY | ~2020-06-24 | XMS | Encounter Summary ---
Demographics + + + | Address | [address] [facility] | | | [place] [address] | + + + | Home Phone [...] [place] | | | | | [address] | | + + + + + Care Team Providers + +------+ + | Care Maintenance Fitter Name | Role | Phone | [...] + + | 12/17/ | Office | [facility] | Dora De La Torre | History of atrial | | 2020 | Visit | CARDIOLOGY [place] | [address] | fibrillation; Benign | | | | [address] | [address] | essential HTN; | | | | [address] | [place] [address] | History of | | | | [place], [place] | [phone] | hypothyroidism; | | | | [address] | | Stress | | | | [phone] | | hyperglycemia; | | | | | | History of sleep | | | | | | apnea; History of | | | | | | stroke; Obesity, | | | | | | Class III, BMI | | | | | | 40-49.9 (morbid | | | | | | obesity) ([facility]); Mild | | | | | | [...] of fatigue and shortness of breath. Her [id number] VASC score is 4 (stroke, HTN, gender) , and Dr. Peterson did not anticoagulate he r due to low incidence of atrial fib. Her current and previous testing and procedures are detailed below. She was seen in the emergency room on October 11, 2019 at [facility] and presented wi th paranoia feeling [...] [facility], and she was to be started on Abilify. She was seen again in the emergency room on October 19 and , [id number] for sim ilar complaints with increased delusions, [...] She has previously seen Dr. Garland in [place], and different provider in [place] when lived over there. She reports she [...] thirst or hunger. Psychiatric/Behavioral: Bipolar/Schizophrenia. Tx'd by [employer] Vaccines: Current on flu vaccine: 2019 Current on pneumonia vaccine:PPSV 23 05/29/2013 Habits/Social : Denies history of smoking. Denies EtOH use. Denies recreational or illici t drug use. Exercises sporadically. Lives in [place] . Outpatient Medications Prior to Visit Medication [...] by mouth. Blood Glucose Monitoring Suppl ([employer] VERIO FLEX SYSTEM) w/Device KIT by Does not ap ply route. budesonide-formoterol (SYMBICORT) 160-4.5 mcg/puff inhaler Inhale 2 puffs into the lung s 2 (two) times daily. calcium carbonate antacid (TUMS ULTRA 1000) 1000 MG CHEW Chew and swallow 1,000 mg 4 ti mes daily as needed. Cholecalciferol (VITAMIN D-3) 57453 units CAPS Take 50,000 Units by mouth [...] nonspecific ST-T wave abnormality rate 82 bpm, AL 176 ms, QRS 80 ms, QTC 446 ms tracing personally reviewed by me EK12/17/2019: Sinus tachycardia, nonspecific ST wave abnormalities, rate 105 bpm, AL 196 ms, QRS 74 ms, QTC 430 ms, tracing personally reviewed by me, and compared to EKG performed in February 2019, rate is less well-controlled LABS Labs: 12/26/2018: ( [facility])CMP: Sodium 139, potassium 4.2, chloride 99, BUN 10, creatinine 0. 7, BNP 28. CBC: WBC 7.8, hemoglobin 14.3, hematocrit 42.7, platelets 214 Labs: 09/28/2019:( [facility]) CBC: WBC 7.8, hemoglobin 14.9, hematocrit 43.8, platelets 221. C MP: Sodium 132, potassium 4.2, chloride 95, AST 76, ALT 76, alk phos 134 Labs: 10/11/2019:( [facility]) CBC: WBC 6.7, RBC 4.97, hemoglobin 15.2, hematocrit 44.7, platel ets 200. CMP: Glucose 385, BUN 7, creatinine 0.62, GFR 97, sodium 131, potassium 4.1, chlor kelby 95, albumin 4.3, total bilirubin 0.6, AST 75, ALT 73, alk phos 144. Thyroid: TSH 4.27 Labs: 10/12/2020:( [facility]) CBC: WBC 7, RBC 4.93, hemoglobin 14.7, hematocrit 44.1, platele ts 186 normal UA CMP: Glucose 381, BUN 6, creatinine 0.63, GFR 95, sodium 133, potassium 3.8 , chloride 97, albumin 4.3, total bili 0.6, AST 62, ALT 75, alk phos 145 thyroid: TSH 3.07 Labs: 10/20/2019:( [facility]) CBC: WBC 7.1, RBC 4.93, [...] in a prescription to her local pharmacy [facility] . I made no other changes [...] III, BMI 40-49.9 (morbid obesity) ([facility]) 8. Mild hyperlipidemia Orders Placed This Encounter [...] for continuity of care purp [facility]Hannah [facility] 12/17/2019 docume nted in this encounter [...] | | | | | | Yesenia ([id number]) on | | | | | | [...]
--- OUTSIDE RECORDS SUMMARY | ~2020-06-24 | XMS | Encounter Summary ---
Demographics + + + | Address | [address] [facility] [address] | | | [place] [address] | + + + | Home Phone [...] [place] | | | | | [address] | | + + + + + Care Team Providers + +------+ + | Care Grade Teacher Name | Role | Phone [...] + + | 08/13/ | Documentati | [facility] | Katharine Moncada, | Other (urgent | | 2019 | on | CARDIOLOGY GENESIS | Technologist | report) | | | | [address] | | | | | | [place] | | | | | | [address] | | | | | | [phone] | | | +--------+ + + + [...]
--- OUTSIDE RECORDS SUMMARY | ~2020-06-24 | XMS | Encounter Summary ---
Demographics + + + | Address | [address] [facility] | | | [place] [address] | + + + | Home Phone [...] [place] | | | | | [address] | | + + + + + Care Team Providers + +------+ + | Care Computer Operations Technician Name | Role | Phone | [...] + | 07/29/ | Telephone | [facility] | Frandy Cagle, | Other (multiple | | 2013 | | NEUROSURGERY [address] | DO [address] | questions) | | | | [facility] [address] | [address] [place], [place] | | | | | [place], [place] | [id number] | | | | | [address] | | | | | | [phone] | | | +--------+ + + + [...] and I might get a repeat MRI. Calhoun ordered. Thanks. ddendum Note - Shayne Aragon [...] - 07/29/2014 11:19 AM [facility] the[facility]. She [...] refill be mailed to her for her Calhoun 10/325mg which was given to her on [...]
--- OUTSIDE RECORDS SUMMARY | ~2020-06-24 | XMS | Encounter Summary ---
Demographics + + + | Address | [address] [facility] | | | [place] [address] | + + + | Home Phone [...] [place] | | | | | [address] | | + + + + + Care Team Providers + +------+ + | Care Fastener Technologist Name | Role | Phone | [...] + + | 02/06/ | Telephone | [facility] | BrittDora | Patient Concerns | | 2020 | | CARDIOLOGY [place] | [address] | | | | | [address] | [address] | | | | | [address] | [place] [address] | | | | | [place] | [phone] | | | | | [address] | | | | | | [phone] | | | +--------+ + + + [...]
--- OUTSIDE RECORDS SUMMARY | ~2020-06-24 | XMS | Encounter Summary ---
Demographics + + + | Address | [address] [facility] | | | [place] [address] | + + + | Home Phone [...] [place] | | | | | [address] | | + + + + + Care Team Providers + +------+ + | Care Brake Lining Finisher Asbestos Name | Role | Phone | + [...] + + | 09/10/ | Documentati | [facility] | Katharine Moncada, | Other (urgent | | 2019 | on | CARDIOLOGY GENESIS | Technologist | report) | | | | [address] | | | | | | [place] | | | | | | [address] | | | | | | [phone] | | | +--------+ + + + [...]
--- OUTSIDE RECORDS SUMMARY | ~2020-06-24 | XMS | Encounter Summary ---
Demographics + + + | Address | [address] [facility] | | | [place] [address] | + + + | Home Phone [...] [place] | | | | | [address] | | + + + + + Care Team Providers + +------+ + | Care Drop Pit Worker Name | Role | Phone | [...] | 08/05/ | Telephone | [facility] | Frandy Teresa, | Other | | 2013 | | NE[address]OSUR[address] | DO [address] | | | | | [address] | [address] [place], [place] | | | | | [place], [place] | [phone] | | | | | [address] | | | | | | [phone] | | | +--------+ + + + [...]
--- OUTSIDE RECORDS SUMMARY | ~2020-06-24 | XMS | Encounter Summary ---
Demographics + + + | Address | [address] [facility] | | | [place] [address] | + + + | Home Phone [...] [place] | | | | | [address] | | + + + + + Care Team Providers + +------+ + | Care Fishing Captain Name | Role | Phone | [...] + + | 10/04/ | Office | [facility] | Desiree Peterson DO | ROGERS on CPAP (Primary | | 2019 | Visit | CARDIOLOGY [place] | [address] | Dx); Morbid obesity | | | | [address] | [place], [place] | [facility]); Benign | | | | [address] | [address] | essential HTN; | | | | [place], [place] | | Atrial fibrillation, | | | | [address] | | unspecified type | | | | [phone] | | (HCC) | +--------+---------+ + + [...] DO - 10/04/2019 11:[address] [facility] Cardiology Cardiology Follow Up [...] rtake in exercise. She recently got a Pelliano and has been walking him more regularly. [...] by mouth daily. Blood Glucose Monitoring Suppl ([employer] FLEX SYSTEM) w/Device KIT by Does not ap ply route. budesonide-formoterol (SYMBICORT) 160-4.5 MCG/ACT inhaler Inhale 2 puffs into the lungs 2 (two) times daily. Calcium Carbonate Antacid 1000 MG tablet Take 1,000 mg by mouth 3 (three) times daily. Cholecalciferol (VITAMIN D3) 95066 units CAPS Take by mouth once a [...]
--- OUTSIDE RECORDS SUMMARY | ~2020-06-24 | XMS | Encounter Summary ---
Demographics + + + | Address | [address] [facility] | | | [place] [address] | + + + | Home Phone [...] [place] | | | | | [address] | | + + + + + Care Team Providers + +------+ + | Care Biomass Plant Technician Name | Role | Phone [...] | | | [address] [place] | [place] [address] | | | | | [place] [address] | | | | | | [phone] | | | +--------+ + + + [...]
--- OUTSIDE RECORDS SUMMARY | ~2020-06-24 | XMS | Encounter Summary ---
Demographics + + + | Address | [address] [facility] | | | [place] [address] | + + + | Home Phone [...] [place] | | | | | [address] | | + + + + + Care Team Providers + +------+ + | Care Respiratory Care Technician Name | Role | Phone [...] + + | 08/30/ | Telephone | [facility] | Ashley Chávez | Other (Patient wants | | 2018 | | CARDIOLOGY [place] Abad, Ui Developer | to take monitor | | | | [address] | | off. ) | | | | [address] | | | | | | [place] | | | | | | [address] | | | | | | [phone] | | | +--------+ + + + [...] Miscellaneous Notes Telephone Encounter - Ashley Chávez, Ui Developer - 08/30/2019 9:19 AM Rory foster [...] thankful for the news. Patient stated understanding JKASSIE:CULINARY ASSISTANT-AAMA. c umented in this encounter Plan of Treatment Not on filedocumented as of this encounter Visit Diagnoses Not on filedocumented in this encounter"
--- OUTSIDE RECORDS SUMMARY | ~2020-06-24 | XMS | Encounter Summary ---
Demographics + + + | Address | [address] [facility] | | | [place] [address] | + + + | Home Phone [...] [place], [place] | | | | | [address] | | + + + + + Care Team Providers + +------+ + | Care Poultry Husbandman Name | Role | Phone | + [...] | | | 1991 | | [place] [address] | | | | | | [phone] | | | +--------+ + + + [...]
--- OUTSIDE RECORDS SUMMARY | ~2020-06-24 | XMS | Encounter Summary ---
Demographics + + + | Address | [address] [facility] | | | [place] [address] | + + + | Home Phone [...] [place], [place] | | | | | [address] | | + + + + + Care Team Providers + +------+ + | Care Psychiatric Orderly Name | Role | Phone | + +------+ + PCP | Unavailable | + +------+ + Encounter Details +--------+ + + + + | Date | Type | Department | Care Team | Description | +--------+ + + + + | 06/30/ | Hospital | [facility] | | | | 1999 - | Encounter | MED CTR GENERIC PSY | | | | | | CONV DEPT [address] | | | | 07/05/ | | [address] [place], | | | | 1999 | | [place] [address] | | | | | | [phone] | | | +--------+ + + + [...]
--- OUTSIDE RECORDS SUMMARY | ~2020-06-24 | XMS | Encounter Summary ---
Demographics + + + | Address | [address] [facility] | | | [place] [address] | + + + | Home Phone [...] [place] | | | | | [address] | | + + + + + Care Team Providers + +------+ + | Care Engine Oiler Name | Role | Phone | + [...] + | 08/16/ | Telephone | [facility] | Ashley Chávez | Other (Called to | | 2018 | | CARDIOLOGY [place] | Pollo, Label Machine Operator | tell patient what | | | | [address] | | Nicholas said. ) | | | | [place] [address] | | | | | | [place] | | | | | | [address] | | | | | | [phone] | | | +--------+ + + + [...] Miscellaneous Notes Telephone Encounter - Ashley Chávez, Label Machine Operator - 08/16/2019 2:57 PM PDTCall m cierra to patient to advise of Dr. Peterson's notes. Patient stated understanding. BRODY:IRINA-AAMA el ephone Encounter - Ashley Chávez Label Machine Operator - 08/16/2019 2:56 PM PDT----- Mess [...] Thanks. ----- Message ----- From: Lesa Ochoa Label Machine Operator Sent: 08/13/2019 13:31 To: Desiree Peterson [...]
--- OUTSIDE RECORDS SUMMARY | ~2020-06-24 | XMS | Encounter Summary ---
Demographics + + + | Address | [address] [facility] [address] [facility] | | | [place] [address] | + + + | Home Phone [...] [place] | | | | | [address] | | + + + + + Care Team Providers + +------+ + | Care Co Pilot Name | Role | Phone | [...] | | | [address] [place] | [place] [address] | | | | | [place] [address] | | | | | | [phone] | | | +--------+ + + + [...]
--- OUTSIDE RECORDS SUMMARY | ~2020-06-24 | XMS | Encounter Summary ---
Demographics + + + | Address | [address] [facility] | | | [place] [address] | + + + | Home Phone [...] [place] | | | | | [address] | | + + + + + Care Team Providers + +------+ + | Care Plastic Press Operator Name | Role | Phone [...] | | | | | | [place] [address] | | | | | | [phone] | | | | | | | [...] | | | | | | [facility] | | | | | [...] | | | | | | Laboratory, [place], | | | | | | [place], delivered | | | | | | [...] by | | | | | | bwxslkmdTgm-Pxv-N: | | | | | | Increased [...] istryMHC-1: | | | | | | [id number] stain | | | | | | [...] + | [facility] | [address] | [place] [address] | | | PATHOLOGY | [address] | | | + + + + + documented in this encounter Visit Diagnoses Not on filedocumented in this encounter
--- OUTSIDE RECORDS SUMMARY | ~2020-06-24 | XMS | Encounter Summary ---
Demographics + + + | Address | [address] [facility] | | | [place] [address] | + + + | Home Phone [...] [place] | | | | | [address] | | + + + + + Care Team Providers + +------+ + | Care Metal Storage Worker Name | Role | Phone | [...] + + | 05/01/ | Telephone | [facility] | Dora De La Torre | Medication Question | | 2020 | | CARDIOLOGY [place] | CAROLINE M[address] | | | | | [address] | [address] | | | | | [address] | [place] [address] | | | | | [place] | [phone] | | | | | [address] | | | | | | [phone] | | | +--------+ + + + [...]
--- OUTSIDE RECORDS SUMMARY | ~2020-06-24 | XMS | Encounter Summary ---
Demographics + + + | Address | [address] [facility] | | | [place] [address] | + + + | Home Phone [...] [place], [place] | | | | | [address] | | + + + + + Care Team Providers + +------+ + | Care Metal Work Duct Installer Name | Role | Phone | + +------+ + PCP | Unavailable | + +------+ + Encounter Details +--------+ + + + + | Date | Type | Department | Care Team | Description | +--------+ + + + + | 12/27/ | Hospital | [facility] | | | | 1997 - | Encounter | MED CTR GENERIC PSY | | | | | | CONV DEPT [address] | | | | 01/01/ | | [place], | | | | 1997 | | [place] [address] | | | | | | [phone] | | | +--------+ + + + [...]
--- OUTSIDE RECORDS SUMMARY | ~2020-06-24 | XMS | Encounter Summary ---
Demographics + + + | Address | [address] [facility] [address] [facility] | | | [place] [address] | + + + | Home Phone [...] [place] | | | | | [address] | | + + + + + Care Team Providers + +------+ + | Care Hardening Machine Operator Helper Name | Role | [...] + + | 07/06/ | Emergency | [facility] | Yunior Sherman, | Chest pain, | | 2014 | | MED CTR EMERGENCY | [address] | unspecified chest | | | | CENTER [address] | [place], [place] | pain type (Primary | | | | [place] | [address] | Dx) | | | | [address] | | | | | | [phone] | | | +--------+ + + + [...] sent through Care Everywhere.CHEST PAIN, NON CARDIAC (ESTONIAN)documented in this encounter Medications at Time of [...] 0 | | | | (VITAMIN D-3) [address] | mouth Once a week. | | [...] [place]) | | | | | | + [...] + + + +---------+ + + | Depew-3 Fatty | Take 1,000 mg by | [...] Location: [facility] MAIN OR Cardiac catherization CURRENT [...] mg by mouth Daily. CHOLECALCIFEROL (VITAMIN D-3) 54991 UNITS CAPS Take 50,000 Units by mouth [...] pain. She was recently discharged from a [facility] facility. She's had more than 24 [...] [address] | [place] | [phone] | | [facility] | | [address] | | | - LABORATORY | | [...] + | [facility] | [address] | [place] | [phone] | | [facility] | | [address] | | | - LABORATORY | | [...] | | | | | | [employer] | | | | | [...] ST. | [address] | [place], [place] | [phone] | | [facility] | | [address] | | | - LABORATORY | | [...] mL/min/1.73m2 | [facility] | | | [employer] | RATE,ESTIMATED | | MEDICAL | | | | mL/min/1.48b3Zywm than | | CENTER - | | [...] [address] | [place] | [phone] | | [facility] | | [address] | | | - LABORATORY | | [...] + | [facility] | [address] | [place] | [phone] | | [facility] | | [address] | | | - LABORATORY | | [...] | | | | MD NAZARIO JON ([id number]) | | | | | | on [...]
--- OUTSIDE RECORDS SUMMARY | ~2020-06-24 | XMS | Encounter Summary ---
Demographics + + + | Address | [address] [facility] | | | [place] [address] | + + + | Home Phone [...] [place], [place] | | | | | [address] | | + + + + + Care Team Providers + +------+ + | Care Olive Brine Tester Name | Role | Phone | + +------+ + PCP | Unavailable | + +------+ + Encounter Details +--------+ + + + + | Date | Type | Department | Care Team | Description | +--------+ + + + + | 02/02/ | Hospital | [facility] | | | | 1997 - | Encounter | MED CTR GENERIC PSY | | | | | | CONV DEPT [address] | | | | 02/05/ | | [place], | | | | 1997 | | [place] [address] | | | | | | [phone] | | | +--------+ + + + [...]
--- OUTSIDE RECORDS SUMMARY | ~2020-06-24 | XMS | Encounter Summary ---
Demographics + + + | Address | [address] [facility] [address] [facility] | | | [place] [address] | + + + | Home Phone [...] [place] | | | | | [address] | | + + + + + Care Team Providers + +------+ + | Care Ems Educator Name | Role | Phone | [...] [address] | | | | | [place] | [address] [place], [place] | | | | | [place] [address] | [address] | | | | | [phone] | | | +--------+ + + + [...] + + + +---------+ + + | Payne-3 Fatty | Take 1,000 mg by | [...] + | MISCELLANEOUS LAB | | | [phone] | + +---------+ + + | MISCELANIOUS LAB | | | [phone] | + +---------+ + + documented in this encounter Visit Diagnoses + + | Diagnosis | + + | Back pain Backache, unspecified | + + documented in this encounter"
--- OUTSIDE RECORDS SUMMARY | ~2020-06-24 | XMS | Encounter Summary ---
Demographics + + + | Address | [address] [facility] | | | [place] [address] | + + + | Home Phone [...] [place] | | | | | [address] | | + + + + + Care Team Providers + +------+ + | Care Electric Motor Winder Name | Role | Phone | + +------+ + PCP | Unavailable | + +------+ + Encounter Details +--------+ + + + + | Date | Type | Department | Care Team | Description | +--------+ + + + + | 12/27/ | Hospital | [facility] | | | | 1997 | Encounter | MED CTR EMERGENCY | | | | | | CENTER [address] | | | | | | [place] | | | | | | [address] | | | | | | [phone] | | | +--------+ + + + [...]
--- OUTSIDE RECORDS SUMMARY | ~2020-06-24 | XMS | Encounter Summary ---
Demographics + + + | Address | [address] [facility] | | | [place] [address] | + + + | Home Phone [...] [place] | | | | | [address] | | + + + + + [...] + + | 06/12/ | Office | [facility] | Chris Nicole, | Spondylisthesis | | 2013 | Visit | NEUROSURGERY [address] | PA-C [address] | (Primary Dx); | | | | [address] | [place], [place] | Radiculopathy of | | | | [place] | [address] | leg; Lumbar spine | | | | [address] | | instability; Lumbar | | | | [phone] | | spondylosis; | | | | [...] the original. ZANE Castillo [address] [facility] [address] [place], [place] [address] FAX: NEUROSURGERY HISTORY AND PHYSICAL EXAMINATION CHIEF [...] Take 15 mg by mouth nightl y. [place]-3 Fatty Acids (FISH OIL CONCENTRATE) 1000 MG [...] has no apparent deficits with short or rn long term care memory. CRANIAL NERVES: II: [...] Intrinsics 5 5 Ulnar Intrinsics 5 5 Datacap Developer Strength 5 5 Hip Flexion 5 [...]
--- OUTSIDE RECORDS SUMMARY | ~2020-06-24 | XMS | Encounter Summary ---
Demographics + + + | Address | [address] [facility] [address] [facility] | | | [place] [address] | + + + | Home Phone [...] [place] | | | | | [address] | | + + + + + Care Team Providers + +------+ + | Care Furnace Erector Name | Role | Phone | [...] [place] | | | | | | [address] | | | | | | [phone] | | | +--------+ + + + [...]
--- OUTSIDE RECORDS SUMMARY | ~2020-06-24 | XMS | Clinical Summary ---
Demographics + + + | Address | [address] [facility] | | | [place] [address] | + + + | Home Phone [...] [place] | | | | | [address] | | + + + + + Care Team Providers + +------+ + | Care Concession Attendant Name | Role | Phone | + +------+ + PCP | Unavailable | + +------+ + Source Comments EDWARD is fully live on both [facility] Ambulatory and [facility] InPatient.[facility] Allergies Not on File Medications [...] + +--------+ | MEDICARE | MEDICA | [id number] | 02/22/20 | [phone] | [address] | Medica | | | RE A & | | 15-Pre | 1 | [address] | re | | | B | | sent | | [place] | | | | | | | | [address] | | + +--------+ +--------+ + +--------+ + +--------+ +--------+ + + | Guarantor Name | Accoun | Relation to | Date | Phone | Billing Address | | | t Type | Patient | of | | | | | | | | | | + +--------+ +--------+ + + | CINDY ARNDT | Person | Self | [birth year] | [address] | | | al/Fam | | 1955 | [phone] | [address] [place] | | | devonte | | | 5 (Home) | [address] | + +--------+ +--------+ + +"
--- OUTSIDE RECORDS SUMMARY | ~2020-06-24 | XMS | Encounter Summary ---
Demographics + + + | Address | [address] [facility] | | | [place] [address] | + + + | Home Phone [...] [place] | | | | | [address] | | + + + + + Care Team Providers + +------+ + | Care Subway Train Operator Name | Role | Phone [...] [place] | | | | | | [facility] [place] | | | | | | [address] | | | | | | [phone] | | | +--------+ + + + [...]
--- OUTSIDE RECORDS SUMMARY | ~2020-06-24 | XMS | Encounter Summary ---
Demographics + + + | Address | [address] [facility] | | | [place] [address] | + + + | Home Phone [...] [place] | | | | | [address] | | + + + + + Care Team Providers + +------+ + | Care Agent Spa Desk Name | Role | Phone | + +------+ + PCP | Unavailable | + +------+ + Encounter Details +--------+ + + + + | Date | Type | Department | Care Team | Description | +--------+ + + + + | 02/22/ | Hospital | [facility] | | | | 1996 | Encounter | MED CTR EMERGENCY | | | | | | CENTER [address] | | | | | | [place] | | | | | | [address] | | | | | | [phone] | | | +--------+ + + + [...]
--- OUTSIDE RECORDS SUMMARY | ~2020-06-24 | XMS | Encounter Summary ---
Demographics + + + | Address | [address] [facility] | | | [place] [address] | + + + | Home Phone [...] [place] | | | | | [address] | | + + + + + Care Team Providers + +------+ + | Care Assistant Professor Of Theater Name | Role | Phone | + [...] [place] | | | | | | [address] | | | | | | [phone] | | | +--------+ + + + [...]
--- OUTSIDE RECORDS SUMMARY | ~2020-06-24 | XMS | Encounter Summary ---
Demographics + + + | Address | [address] [facility] | | | [place] [address] | + + + | Home Phone [...] [place] | | | | | [address] | | + + + + + Care Team Providers + +------+ + | Care Executive Chef Assistant Name | Role | Phone | [...] [place] | | | | | | [address] | | | | | | [phone] | | | +--------+ + + + [...]
--- OUTSIDE RECORDS SUMMARY | ~2020-06-24 | XMS | Encounter Summary ---
Demographics + + + | Address | [address] [facility] | | | [place] [address] | + + + | Home Phone [...] [place] | | | | | [address] | | + + + + + Care Team Providers + +------+ + | Care Reconciliation Clerk Name | Role | Phone | [...] [place] | | | | | | [address] | | | | | | [phone] | | | +--------+ + + + [...]
--- OUTSIDE RECORDS SUMMARY | ~2020-06-24 | XMS | Encounter Summary ---
Demographics + + + | Address | [address] [facility] | | | [place] [address] | + + + | Home Phone [...] [place] | | | | | [address] | | + + + + + Care Team Providers + +------+ + | Care Occupational Analyst Name | Role | Phone | [...] | Assistance | | | | [address] [facility] [address] | [address] [place], [place] | | | | | [place], [place] | [id number] | | | | | [address] | | | | | | [phone] | | | +--------+ + + + [...] get a refill of her pain medication Byron 10-325 mg. I l et her know [...]
--- OUTSIDE RECORDS SUMMARY | ~2020-06-24 | XMS | Encounter Summary ---
Demographics + + + | Address | [address] [facility] | | | [place] [address] | + + + | Home Phone [...] [place] | | | | | [address] | | + + + + + Care Team Providers + +------+ + | Care Supervisor Seaming Name | Role | Phone | + [...] [address] | [address] [place], [place] | Anxiety; Anemia; | | | | [place], [place] | [address] | Irregular heartbeat; | | | | [address] | | Depression; | | | | [phone] | | Migraine; | | | | [...]
--- OUTSIDE RECORDS SUMMARY | ~2020-06-24 | XMS | Encounter Summary ---
Demographics + + + | Address | [address] [facility] | | | [place] [address] | + + + | Home Phone [...] [place] | | | | | [address] | | + + + + + Care Team Providers + +------+ + | Care Director Day Care Center Name | Role | Phone | [...] + + | 08/08/ | Telephone | [facility] | Ashley Chávez | Other (Questions | | 2019 | | CARDIOLOGY GENESIS Abad, Chocolate Molder | about coverage. ) | | | | [address] | | | | | | [place] | | | | | | [address] | | | | | | [phone] | | | +--------+ + + + [...] Miscellaneous Notes Telephone Encounter - Ashley Chávez, Chocolate Molder - 08/08/2019 10:58 AM Seferino kristin called and wanted to know if her monitor needed to be AUTHORIZED. I asked Danelle and she said that because she had medicare part A and B, it does not need kayode or auth. I told this information to the patient, patient stated understanding. BRODY[facility] in this encounter Plan of Treatment Not on filedocumented as of this encounter Visit Diagnoses Not on filedocumented in this encounter"
--- OUTSIDE RECORDS SUMMARY | ~2020-06-24 | XMS | Encounter Summary ---
Demographics + + + | Address | [address] [facility] | | | [place] [address] | + + + | Home Phone [...] [place] | | | | | [address] | | + + + + + Care Team Providers + +------+ + | Care Cuff Setter Overlock Name | Role | Phone | + +------+ + PCP | Unavailable | + +------+ + Encounter Details +--------+ + + + + | Date | Type | Department | Care Team | Description | +--------+ + + + + | 07/17/ | Hospital | [facility] | | | | 1997 | Encounter | MED CTR EMERGENCY | | | | | | CENTER [address] | | | | | | [place] | | | | | | [address] | | | | | | [phone] | | | +--------+ + + + [...]
--- OUTSIDE RECORDS SUMMARY | ~2020-06-24 | XMS | Encounter Summary ---
Demographics + + + | Address | [address] [facility] | | | [place] [address] | + + + | Home Phone [...] [place] | | | | | [address] | | + + + + + Care Team Providers + +------+ + | Care Patternmaker Plaster Name | Role | Phone | [...] [place] | | | | | | [address] | | | | | | [phone] | | | +--------+ + + + [...]
--- OUTSIDE RECORDS SUMMARY | ~2020-06-24 | XMS | Encounter Summary ---
Demographics + + + | Address | [address] [facility] | | | [place] [address] | + + + | Home Phone [...] [place] | | | | | [address] | | + + + + + Care Team Providers + +------+ + | Care Civil Engineering Specialist Name | Role | Phone [...] as of this encounter Procedure Notes Interface, Cabinet Abrasive Sandblaster In - 10/24/2006 3:[address] [id number] [facility] OPERATION RECORD Med Rec No.: [id number] [...] | Transcriptions | + + | Interface, Cabinet Abrasive Sandblaster In - 10/24/2006 3:09 AM PST | | [address] | | [place], [place] [address] [place] | | [facility] Rec No.: [id number] Date: | [...]
--- OUTSIDE RECORDS SUMMARY | ~2020-06-24 | XMS | Encounter Summary ---
Demographics + + + | Address | [address] [facility] | | | [place] [address] | + + + | Home Phone [...] [place] | | | | | [address] | | + + + + + Care Team Providers + +------+ + | Care Heel Finisher Name | Role | Phone | + +------+ + PCP | Unavailable | + +------+ + Encounter Details +--------+ + + + + | Date | Type | Department | Care Team | Description | +--------+ + + + + | 01/26/ | Hospital | [facility] | [place], | | | 2011 | Encounter | MED CTR XRAY [address] | MD [address] | | | | | [place] | [place] | | | | | [place] [address] | [address] | | | | | [phone] | | | +--------+ + + + [...] Center [facility] | [place] | | [address] [facility] | [facility] | | BILATERAL KNEES, THREE VIEWS: | [...] Transcribed | | | Date/Time: 01/27/2012 17:18 Yarn Salvager: REBECCA | | | <Electronically Signed by Willie Perry MD> 01/27/12 7724 | | + + + + + | Procedure Note | + + | Juan, Rad Conversion - 11/30/2013 5:03 PM [facility] | | Diagnostic Imaging Department [address] [place] [address] | | BILATERAL KNEES, THREE VIEWS: 01/27/2012 [...] 17:12 | |Transcribed Date/Time: 01/27/2012 17:18 | |Yarn Salvager: | |<Electronically Signed by Willie Perry MD> [...]
--- OUTSIDE RECORDS SUMMARY | ~2020-06-24 | XMS | Encounter Summary ---
Demographics + + + | Address | [address] [facility] [address] [facility] | | | [place] [address] | + + + | Home Phone [...] [place] | | | | | [address] | | + + + + + Care Team Providers + +------+ + | Care Telephone Claims Representative Name | Role | Phone | [...] + + | 05/08/ | Telephone | [facility] | Dora De La Torre | Testing | | 2020 | | CARDIOLOGY [place] | [address] | | | | | [address] | [address] | | | | | [address] | [place] [address] | | | | | [place] | [phone] | | | | | [address] | | | | | | [phone] | | | +--------+ + + + [...]
--- OUTSIDE RECORDS SUMMARY | ~2020-06-24 | XMS | Encounter Summary ---
Demographics + + + | Address | [address] [facility] | | | [place] [address] | + + + | Home Phone [...] Author + + + | Author | [facility] | + + + | Organization | [facility] | + + + | Address | Unknown | + + + | Phone | Unavailable | + + + Support + + + + + | Name | Relationship | Address | Phone | + + + + + | Kelsy Bautista | ECON | [address] | | | | | [place] | | | | | [address] | | + + + + + Care Team Providers + +------+ + | Care Director Data Management Name | Role | Phone | [...] [address] | | | | | | [place], [place] | | | | | | [address] | | | | | | [phone] | | | +--------+ + + + [...] as of this encounter Progress Notes Interface, Furniture Removalist'S Assistant In - 12/11/2006 5:[address] [...]
--- OUTSIDE RECORDS SUMMARY | ~2020-06-24 | XMS | Encounter Summary ---
Demographics + + + | Address | [address] [address] [facility] | | | [place] [address] | + + + | Home Phone [...] [place] | | | | | [address] | | + + + + + Care Team Providers + +------+ + | Care Leaf Blender Name | Role | Phone | [...] + | 06/28/ | Telephone | [facility] | Ashley Chávez | Talia (Patient | | 2018 | | CARDIOLOGY GENESIS Abad, Hot Dip Galvanizer | called to cancel her | | | | [address] | | appointment) | | | | [place] | | | | | | [address] | | | | | | [phone] | | | +--------+ + + + [...] Miscellaneous Notes Telephone Encounter - Ashley Chávez, Hot Dip Galvanizer - 06/28/2019 2:12 PM Seferino foster said [...]
--- OUTSIDE RECORDS SUMMARY | ~2020-06-24 | XMS | Encounter Summary ---
Demographics + + + | Address | [address] [facility] | | | [place] [address] | + + + | Home Phone [...] [place] | | | | | [address] | | + + + + + Care Team Providers + +------+ + | Care Programs Director Name | Role | Phone | [...] + + | 08/28/ | Telephone | [facility] | Ashley Chávez | Other (Patient has | | 2018 | | CARDIOLOGY GENESIS Abad, Operating Room Specialist | questions about | | | | [address] | | monitor. ) | | | | [place], [place] | | | | | | [address] | | | | | | [phone] | | | +--------+ + + + [...] Miscellaneous Notes Telephone Encounter - Ashley Chávez, Operating Room Specialist - 08/28/2019 8:32 AM Rory foster says [...] that if she chooses. Patient stated understanding. CLAYTONW:MACHINIST TOOL AND DIE-AAMA. sandro umented in this encounter Plan of Treatment Not on filedocumented as of this encounter Visit Diagnoses Not on filedocumented in this encounter"
--- OUTSIDE RECORDS SUMMARY | ~2020-06-24 | XMS | Encounter Summary ---
Demographics + + + | Address | [address] | | | [place] [address] | + + + | Home Phone [...] [place], [place] | | | | | [address] | | + + + + + Care Team Providers + +------+ + | Care Geological Engineering Teacher Name | Role | Phone | + +------+ + PCP | Unavailable | + +------+ + Encounter Details +--------+ + + + + | Date | Type | Department | Care Team | Description | +--------+ + + + + | 01/16/ | Hospital | [facility] | | | | 2002 | Encounter | [facility] [address] | | | | | | [place] | | | | | | [place] [phone] | | | | | | [phone] | | | +--------+ + + + [...]
--- OUTSIDE RECORDS SUMMARY | ~2020-06-24 | XMS | Encounter Summary ---
Demographics + + + | Address | [address] [facility] [address] | | | [place] [address] | + + + | Home Phone [...] [place] | | | | | [address] | | + + + + + Care Team Providers + +------+ + | Care Machined Parts Metal Sprayer Name | Role | Phone | + +------+ + | Thierry Fry MD | PCP | | + +------+ + Encounter Details +--------+ + + + + | Date | Type | Department | Care Team | Description | +--------+ + + + + | 03/06/ | Hospital | [facility] | Katharine Cardona PA-C | Essential | | 2015 | Encounter | MED CTR LABORATORY | [address] | hypertension | | | | [address] [place] | [place] [address] | | | | | [place], [place] | [phone] | | | | | [address] | | | | | | [phone] | | | +--------+ + + + [...] 0 | | | | (VITAMIN D-3) 77140 | mouth Once a week. | | [...] + + + +---------+ + + | Callaway-3 Fatty | Take 1,000 mg by | 60 each | 5 | 03/09/20 | | | Acids (FISH OIL | mouth 2 times daily. | | | 15 | 9 | | CONCENTRATE) 1000 MG | | | | | | | CAPS | | | | | | + + + +---------+ + + | Callaway-3 Fatty | Take 1,000 mg by | [...] | 0.66 | 0.60 - 1.30 | [facility] | | | | | mg/dL | [facility] | | | | | | [facility] | | | | | | [facility] - | | | | | | LABORATORY | | + + + + + + | eGFR, | >60Comment: GLOMERULAR | >=60 | [facility] | | | non- | FILTRATION | mL/min/1.73m2 | [facility] | | | [place] | RATE,ESTIMATED | | MEDICAL | | | | mL/min/1.15z2Fxoo than | | CENTER - | | [...] ST. | [address] | [place], [place] | [phone] | | [facility] | | [address] | | | - LABORATORY | | | | + + + + + documented in this encounter Visit Diagnoses + + | Diagnosis | + + | Essential hypertension Unspecified essential hypertension | + + documented in this encounter"
--- OUTSIDE RECORDS SUMMARY | ~2020-06-24 | XMS | Encounter Summary ---
Demographics + + + | Address | [address] [facility] [address] | | | [place] [address] | + + + | Home Phone [...] [place], [place] | | | | | [address] | | + + + + + Care Team Providers + +------+ + | Care Bi Tri Operator Name | Role | Phone | + +------+ + PCP | Unavailable | + +------+ + Encounter Details +--------+ + + + + | Date | Type | Department | Care Team | Description | +--------+ + + + + | 07/17/ | Hospital | [facility] | | | | 1997 - | Encounter | MED CTR GENERIC PSY | | | | | | CONV DEPT [address] | | | | 07/25/ | | [address] [place], | | | | 1997 | | [place] [address] | | | | | | [phone] | | | +--------+ + + + [...]
--- OUTSIDE RECORDS SUMMARY | ~2020-06-24 | XMS | Encounter Summary ---
Demographics + + + | Address | [address] [facility] [address] | | | [place] [address] | + + + | Home Phone [...] [place], [place] | | | | | [address] | | + + + + + Care Team Providers + +------+ + | Care Glass Beveller Name | Role | Phone | + [...] | | | | | [place] [address] | | | | | | [phone] | | | +--------+ + + + [...]
--- OUTSIDE RECORDS SUMMARY | ~2020-06-24 | XMS | Encounter Summary ---
Demographics + + + | Address | [address] [facility] [address] | | | [place] [address] | + + + | Home Phone [...] [place] | | | | | [address] | | + + + + + Care Team Providers + +------+ + | Care Employee Development Specialist Name | Role | Phone [...] [address] | [address] [place], [place] | (Primary Dx) | | | | [place], [place] | [address] | | | | | [address] | | | | | | [phone] | | | +--------+ + + + [...] + | MISCELLANEOUS LAB | | | [phone] | + +---------+ + + | MISCELANIOUS LAB | | | [phone] | + +---------+ + + documented in this encounter Visit Diagnoses + + | Diagnosis | + + | Status post lumbar spinal fusion - Primary Arthrodesis status | + + documented in this encounter"
--- OUTSIDE RECORDS SUMMARY | ~2020-06-24 | XMS | Encounter Summary ---
Demographics + + + | Address | [address] [facility] [address] | | | [place] [address] | + + + | Home Phone [...] [place] | | | | | [address] | | + + + + + Care Team Providers + +------+ + | Care Bookkeeper Name | Role | Phone | [...] + + | 07/24/ | Telephone | [facility] | Ashley Chávez | Other (Patient is | | 2018 | | CARDIOLOGY GENESIS Aabd, Machine Gunner | worried about paying | | | | [address] | | for monitor. ) | | | | [place] | | | | | | [address] | | | | | | [phone] | | | +--------+ + + + [...] Miscellaneous Notes Telephone Encounter - Ashley Chávez, Machine Gunner - 07/24/2019 11:13 AM MELANIEPatigutierrez t says [...] gals to see what can be done. JKASSIE:DAY PORTER-AAMA. doc umented in this encounter Plan of Treatment Not on filedocumented as of this encounter Visit Diagnoses Not on filedocumented in this encounter"
--- OUTSIDE RECORDS SUMMARY | ~2020-06-24 | XMS | Encounter Summary ---
Demographics + + + | Address | [address] [facility] [address] | | | [place] [address] | + + + | Home Phone [...] [place], [place] | | | | | [address] | | + + + + + Care Team Providers + +------+ + | Care Engineering Inspector Name | Role | Phone | + +------+ + PCP | Unavailable | + +------+ + Encounter Details +--------+ + + + + | Date | Type | Department | Care Team | Description | +--------+ + + + + | 03/13/ | Hospital | [facility] | | | | 1996 - | Encounter | MED CTR GENERIC OP | | | | | | CONV DEPT [address] | | | | 03/21/ | | [address], | | | | 1996 | | [place] [address] | | | | | | [phone] | | | +--------+ + + + [...]
--- OUTSIDE RECORDS SUMMARY | ~2020-06-24 | XMS | Encounter Summary ---
Demographics + + + | Address | [address] [facility] [address] | | | [place] [address] | + + + | Home Phone [...] [place] | | | | | [address] | | + + + + + Care Team Providers + +------+ + | Care Wrist Hemmer Name | Role | Phone | [...] updated | | | | | [address] [facility] [facility], | address | | | | | [address] [place] | | | | | | [place] [address] | | | | | | [phone] | | | +--------+ + + + [...] stroke work up she had done at [place] was quite thorough and she did not [...]
--- OUTSIDE RECORDS SUMMARY | 2020-06-24 01:32 | XMS ---
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 Events No recent Security Events currently on file CRITERIA MET - 6 ED Visits in 6 Months - [facility] - Has Care Guidelines - PDMP - [facility] - 2 Visits in 30 Days CARE PROVIDERS WAYNE CAMARGO Internal Medicine 09/07/2019-Current PHONE: [phone] SMITH DOMINGUEZ Counselor: Mental Health 05/21/2020-Current PHONE: [phone] Kenny Palafox [facility] Current PHONE: [phone] ANGELICA MELVIN Internal Medicine: Pulmonary Disease 05/21/2020-Current PHONE: Unknown Jose Ag [facility] 01/31/2019-Current PHONE: [phone] Guidelines Source: [facility] [place] Guidelines Date: 03/13/2019 Care Coordination: Mental health services are being provided by [facility].\T\nbsp; Please contact [facility] with mental health concerns.\T\nbsp; [place]: \T\nbsp; [place]: [phone]. Care History Medical/Surgical 06/02/2020 [facility] - LETTER FROM PATIENT PCP- DR DOMINGUEZ 05/28/2020: PATIENT HAS ESTABLISHED CARE WITH DR DOMINGUEZ AND THEY ARE WORKING HARD WITH PATIENT IN REGARDS TO CHRONIC MEDICAL CONDITIONS. SHE DOES SEEK FREQUENT MEDICAL CARE SO DR DOMINGUEZ HAS MADE AN APT WITH PATIENT EVERY TUESDAY AT 11:00AM TO HELP GIVE HER THE APPROPRIATE OUTLET FOR HER MEDICAL ISSUES. DR DOMINGUEZ IS ALSO AVAILABLE TO HER IN THE WALK IN CLINIC ON SUNDAYS, WHICH PATIENT KNOWS. DR DOMINGUEZ HOPES TO SEE HER UTILIZE THE ER MUCH LESS, AND YOU WILL FEEL COMFORTABLE DISCHARGING THE PATIENT WITHOUT MEDICATION CHANGES KNOWING SHE HAS CLOSE PCP FOLLOW UP. HER MENTAL HEALTH IS A BARRIER TO HER GETTING APPROPRIATE CARE, SO DR DOMINGUEZ APPRECIATES YOUR HELP WITH HER. PLEASE FEEL FREE TO REACH OUT TO DR DOMINGUEZ IF NEEDED. DR DOMINGUEZ [phone] 05/26/2020 [facility] Patient stated that she was having chest discomfort and called [facility] and they told her to go to ED. Patient has a televisit with Dr. Dominguez on 05/27/2020 at 8:40 am. 05/21/2020 [facility] Patient\T\#39;s therapist, Ashley Lopez, RECORD TABULATING CLERK at [facility] has been advised of her overuse of the ED and discussed with her. Also, she has put in a Referral to have a CHW at [facility] work with her .\T\nbsp; Patient was just seen by Walk In provider, Ashley Sharp, yesterday, 05/20/2020 for skin issue.\T\ nbsp; Next PCP visit on 05/29/2020. E.D. VISIT COUNT (12 MO.) 25 [facility]. TOTAL 25 NOTE: Visits indicate total known visits. ED/UCC VISIT TRACKING (12 MO.) 06/24/2020 01:30 [facility] [place] TYPE: Emergency COMPLAINT: - HIP PAIN INJURY 05/25/2020 12:32 [facility] [place] TYPE: Emergency COMPLAINT: - CHEST PAIN, DIZZINESS DIAGNOSES: - Gastro-esophageal reflux disease without esophagitis - Old myocardial infarction - Other snf (current) drug therapy - records management specialist (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 - Allergy status to sulfonamides status - records management specialist (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 of 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 - Type 2 diabetes mellitus without complications - Essential (primary) hypertension - Chest pain, unspecified - Allergy status to other drugs, medicaments and biological sub 05/23/2020 09:03 [facility] [place] TYPE: Emergency COMPLAINT: - CHEST PAIN DIAGNOSES: - Allergy status to sulfonamides status - Allergy status to other drugs, medicaments and biological sub - Old myocardial infarction - Personal history of transient ischemic attack (TIA), and cere - records management specialist (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 - Schizophrenia, unspecified - Type 2 diabetes mellitus with hyperglycemia - Other long term care pharmacist (current) drug therapy - Gastro-esophageal reflux disease without esophagitis - Essential (primary) hypertension - Chest pain, unspecified 05/22/2020 11:22 [facility] [place] TYPE: Emergency COMPLAINT: - CHEST PAIN, SOB DIAGNOSES: - Chest pain, unspecified - Type 2 diabetes mellitus with hyperglycemia - Allergy status to other drugs, medicaments and biological sub - Gastro-esophageal reflux disease without esophagitis - Allergy status to sulfonamides status - Chest pain, unspecified 05/21/2020 04:15 [facility] [place] TYPE: Emergency COMPLAINT: - LIGHT HEADED DIAGNOSES: - records management specialist (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 of 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 - Allergy status to sulfonamides status - Old myocardial infarction - Schizophrenia, unspecified - Type 2 diabetes mellitus with hyperglycemia - Shortness of breath - Allergy status to other drugs, medicaments and biological sub - Essential (primary) hypertension - Other snf (current) drug therapy - records management specialist (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 - Gastro-esophageal reflux disease without esophagitis 05/13/2020 19:47 [facility] [place] TYPE: Emergency COMPLAINT: - MEDICAL CLEARANCE DIAGNOSES: - Allergy status to other drugs, medicaments and biological sub - Other snf (current) drug therapy - records management specialist (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 of 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 - Encounter for other general examination - Essential (primary) hypertension - Gastro-esophageal reflux disease without esophagitis - records management specialist (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 - Allergy status to sulfonamides status - Old myocardial infarction - Type 2 diabetes mellitus without complications 05/06/2020 06:05 [facility] [place] TYPE: Emergency COMPLAINT: - RAPID HEARTRATE DIAGNOSES: - Gastro-esophageal reflux disease without esophagitis - USP (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 of 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 - Allergy status to sulfonamides status - Essential (primary) hypertension - Allergy status to other drugs, medicaments and biological sub - Type 2 diabetes mellitus without complications - records management specialist (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 - Palpitations - Old myocardial infarction - Other snf (current) drug therapy 05/03/2020 19:00 [facility] [place] TYPE: Emergency COMPLAINT: - RAPID HEART RATE DIAGNOSES: - Allergy status to other drugs, medicaments and biological sub - Allergy status to sulfonamides status - Old myocardial infarction - Gastro-esophageal reflux disease without esophagitis - Essential (primary) hypertension - USP (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 of 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 - Type 2 diabetes mellitus with hyperglycemia - records management specialist (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 - Palpitations - Other snf (current) drug therapy 04/28/2020 18:43 [facility] [place] TYPE: Emergency COMPLAINT: - MEDICAL CLEARANCE DIAGNOSES: - Gastro-esophageal reflux disease without esophagitis - Allergy status to other drugs, medicaments and biological sub - Essential (primary) hypertension - Allergy status to sulfonamides status - Type 2 diabetes mellitus without complications - Other long term care pharmacist (current) drug therapy - Hallucinations, unspecified - [...] Allergy status to sulfonamides status - Other long term care pharmacist (current) drug therapy - Abrasion, left knee, [...] Gastro-esophageal reflux disease without esophagitis - Other snf (current) drug therapy - Delusional disorders 10/22/2019 16:37 [facility] [place] TYPE: Emergency COMPLAINT: - MEDICAL CLEARANCE DIAGNOSES: - Type 2 diabetes mellitus without complications - Gastro-esophageal reflux disease without esophagitis - Old myocardial infarction - Other snf (current) drug therapy - Essential (primary) hypertension - Allergy status to sulfonamides status - Allergy status to other drugs, medicaments and biological sub - Encounter for other general examination 10/20/2019 20:02 [facility] [place] TYPE: Emergency COMPLAINT: - MEDICAL CLEARANCE DIAGNOSES: - Gastro-esophageal reflux disease without esophagitis - Type 2 diabetes mellitus without complications - Encounter for other general examination - Other long term care pharmacist (current) drug therapy - Old myocardial infarction [...] ischemic attack (TIA), and cere - Other long term care pharmacist (current) drug therapy - Old myocardial infarction - Essential (primary) hypertension - Type 2 diabetes mellitus with hyperglycemia 10/11/2019 10:06 [facility] [place] TYPE: Emergency COMPLAINT: - MEDICAL CLEARANCE DIAGNOSES: - Essential (primary) hypertension - Delusional disorders - Old myocardial infarction - Delusional disorders - Allergy status to sulfonamides status - Other snf (current) drug therapy - Schizoaffective disorder, unspecified 09/28/2019 13:19 [facility] [place] TYPE: Emergency COMPLAINT: - MEDICAL CLEARANCE DIAGNOSES: - Type 2 diabetes mellitus without complications - Allergy status to other drugs, medicaments and biological sub - Old myocardial infarction - Other snf (current) drug therapy - Allergy status to sulfonamides status - Gastro-esophageal reflux disease without esophagitis - Essential (primary) hypertension - Suicidal ideations - Encounter for other administrative examinations 09/26/2019 10:06 [facility] [place] TYPE: Emergency COMPLAINT: - MEDICAL CLEARANCE DIAGNOSES: - Other snf (current) drug therapy - Personal history of transient ischemic attack (TIA), and cere - Gastro-esophageal reflux disease without esophagitis - Allergy status to sulfonamides status - Old myocardial infarction - Schizoaffective disorder, unspecified - Allergy status to other drugs, medicaments and biological sub - Essential (primary) hypertension - records management specialist (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 09/25/2019 13:35 [facility] [place] TYPE: Emergency COMPLAINT: - HEARING VOICES DIAGNOSES: - Type 2 diabetes mellitus without complications - Personal history of transient ischemic attack (TIA), and cere - Gastro-esophageal reflux disease without esophagitis - Schizoaffective disorder, unspecified - Suicidal ideations - USP (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 - Old myocardial infarction - Allergy status to sulfonamides status - Essential (primary) hypertension - Other long term care pharmacist (current) drug therapy - Allergy status to other drugs, medicaments and biological sub 09/18/2019 13:53 [facility] [place] TYPE: Emergency COMPLAINT: - MEDICAL CLEARANCE DIAGNOSES: - Type 2 diabetes mellitus without complications - Schizoaffective disorder, unspecified - Suicidal ideations - Allergy status to other drugs, medicaments and biological sub - Gastro-esophageal reflux disease without esophagitis - Old myocardial infarction - records management specialist (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 - Essential (primary) hypertension - Rash and other nonspecific skin eruption - Allergy status to sulfonamides status - Other snf (current) drug therapy Plus 5 More Visits INPATIENT VISIT TRACKING (12 MO.) [...] sub - Paroxysmal atrial fibrillation - Other long term care pharmacist (current) drug therapy - Allergy status to sulfonamides status [email or web address]
== END 2020-06-24 02:13 | disposition home or self-care (01) ==
LOC: ED 01:29
DX: S70.02XA Contusion of left hip, initial encounter (principal); I10 Essential (primary) hypertension; K21.9 Gastro-esophageal reflux disease without esophagitis; E11.9 Type 2 diabetes mellitus without complications; I25.2 Old myocardial infarction; Z88.2 Allergy status to sulfonamides; Z88.8 Allergy status to other drugs, medicaments and biological substances; Z79.899 Other long term (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; W01.0XXA Fall on same level from slipping, tripping and stumbling without subsequent striking against object, initial encounter
CPT/HCPCS: 73502; 99283-25

== ENCOUNTER 2020-07-01 07:41 | Emergency (ER) | payer MEDICARE ==
[~2020-07-01] VITALS: Ht 170.2 cm; Wt 90.7 kg
--- OUTSIDE RECORDS SUMMARY | ~2020-07-01 | XMS | Encounter Summary ---
Demographics + + + | Address | [address] [facility] [address] | | | [place] [address] | + + + | Home Phone | | + + + | Preferred Language | Unknown | + + + | Marital Status | | + + + | [employer] Affiliation | [id number] | + + + [...] [place] | | | | | [address] | | + + + + + Care Team Providers + +------+ + | Care Glost Placer Name | Role | Phone | + +------+ + | Natalee Andersen NP | PCP | | + +------+ + Reason for Referral Evaluate (Routine) +--------+--------+ + + + + | Status | Reason | Specialty | Diagnoses / | Referred By | Referred To | | | | | Procedures | Contact | Contact | +--------+--------+ + + + + | Closed | | DME | Diagnoses | Brii, | | | | | | Lumbar | Frandy Simons DO | | | | | | radiculopath | [address] | | | | | | [address] Knee | [address] | | | | | | pain, | [place], [place] | | | | | | bilateral | [id number] | | | | | | Degenerative | Phone: | | | | | | disc | [phone] | | | | | | disease, | Fax: | | | | | | lumbar | [phone] | | | | | | Spinal | | | | | | | stenosis, | | | | | | | lumbar | | | | | | | Neuropathy | | | +--------+--------+ + + + + Encounter Details +--------+ + + + + | Date | Type | Department | Care Team | Description | +--------+ + + + + | 05/02/ | Orders Only | [facility] | Frandy Teresa, | BACK PAIN, LUMBAR, | | 2013 | | NEUROSURGERY [address] | DO [address] | WITH RADICULOPATHY | | | | [address] | [address] [place], [place] | (Primary Dx); Knee | | | | [place] | [address] | pain, bilateral; | | | | [address] | | DEGENERATIVE DISC | | | | [phone] | | DISEASE, LUMBAR | | | | | | SPINE; Spinal | | | | | | stenosis, lumbar; | | | | | | Neuropathy | +--------+ + + + + Social [...] as of this encounter Plan of Treatment + + +--------+ + + | Name | Type | Priori | Associated Diagnoses | Order Schedule | | | | ty | | | + + +--------+ + + | DME (Generic), | Outpatient | Routin | BACK PAIN, LUMBAR, | Ordered: 05/02/2014 | | External - AMB | Referral | e | WITH RADICULOPATHY | | | Referral | | | Knee pain, | | | | | | bilateral | | | | | | DEGENERATIVE DISC | | | | | | DISEASE, LUMBAR | | | | | | SPINE Spinal | | | | | | stenosis, lumbar | | | | | | Neuropathy | | + + +--------+ + + documented as of this encounter Visit Diagnoses + + | Diagnosis | + + | BACK PAIN, LUMBAR, WITH RADICULOPATHY - Primary Thoracic or lumbosacral neuritis or | | radiculitis, unspecified | + + | Knee pain, bilateral Pain in joint, lower leg | + + | DEGENERATIVE DISC DISEASE, LUMBAR SPINE Degeneration of lumbar or lumbosacral | | intervertebral disc | + + | Spinal stenosis, lumbar Spinal stenosis, lumbar region, without neurogenic | | claudication | + + | Neuropathy Mononeuritis of unspecified site | + + documented in this encounter"
--- OUTSIDE RECORDS SUMMARY | ~2020-07-01 | XMS | Encounter Summary ---
Demographics + + + | Address | [address] [facility] [address] | | | [place] [address] | + + + | Home Phone | | + + + | Preferred Language | Unknown | + + + | Marital Status | | + + + | Mosque Affiliation | 1013 | + + + | Race | White | + + + | Ethnic Group | Not or | + + + Author + + + | Author | [facility] | | | and [place] | + + + | Organization | [facility] | | | and [place] | + + + | Address | Unknown | + + + | Phone | Unavailable | + + + Support + + + + + | Name | Relationship | Address | Phone | + + + + + | Araceli Sibley | ECON | [place] | | | | | [address] | | + + + + + Care Team Providers + +------+ + | Care Storage Battery Charger Name | Role | Phone | + +------+ + | Natalee Andersen NP | PCP | | + +------+ + Reason for Visit Auth/Cert +--------+--------+ + + + + | Status | Reason | Specialty | Diagnoses / | Referred By | Referred To | | | | | Procedures | Contact | Contact | +--------+--------+ + + + + | Closed | | | Diagnoses | | [facility] | | | | | 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 | | [address] | | | | | hesis | | [place], | | | | | Spinal | | [place] [address] | | | | | stenosis, | | Phone: | | | | | lumbar | | [phone] | | | | | region, | | Fax: | | | | | without | | [phone] | | | | | neurogenic | | | | | | | claudication | | | | | | | Thoracic | | | | | | | or | | | | | | | lumbosacral | | | | | | | neuritis or | | | | | | | radiculitis, | | | | | | | unspecified | | | | | | | Lumbago | | | | | | | Lumbago | | | | | | | Thoracic or | | | | | | | lumbosacral | | | | | | | neuritis or | | | | | | | radiculitis, | | | | | | | unspecified | | | | | | | Spinal | | | | | | | stenosis, | | | | | | | lumbar | | | | | | | region, | | | | | | | without | | | | | | | neurogenic | | | | | | | claudication | | | | | | | Acquired | | | | | | | spondylolist | | | | | | | hesis | | | | | | | Procedures | | | | | | | FL ARTHDSIS | | | | | | | POST/POSTERO | | | | | | | LATRL/POSTIN | | | | | | | TERBODY | | | | | | | LUMBAR | | | | | | | POSTERIOR | | | | | | | NON-SEGMENTA | | | | | | | L | | | | | | | INSTRUMENTAT | | | | | | | ION FL | | | | | | | APPLICATION | | | | | | | INTERVERTEBR | | | | | | | AL | | | | | | | BIOMECHANICA | | | | | | | L DEVICE | | | | | | | LAMINEC/FACE | | | | | | | TECT/FORAMIN | | | | | | | ,LUMBAR 1 | | | | | | | SEG FL | | | | | | | LAMINEC/FACE | | | | | | | TECT/FORAMIN | | | | | | | ,EACH ADDNL | | | | | | | LAMINECTOMY | | | | | | | PLIF/TLIF | | | | | | | INSTRUMENTAT | | | | | | | ION | | | +--------+--------+ + + + + Encounter Details +--------+ + + + + | Date | Type | Department | Care Team | Description | +--------+ + + + + | 07/02/ | Hospital | [facility] | Frandy Teresa, | Spinal stenosis, | | 2013 | Encounter | MED CTR XRAY [address] | DO [address] | lumbar region, | | | | [place] | [address] [place] | without neurogenic | | | | [place] [address] | [phone] | claudication | | | | [phone] | | (Primary Dx) | +--------+ + + + + Social [...] + + documented as of this encounter Medications at Time of Discharge + + + +---------+ + + | Medication | Sig | Dispensed | Refills | Start | End Date | | | | | | Date | | + + + +---------+ + + | asenapine | Place 10 mg under | | 0 | | | | (SAPHRIS) 10 mg SL | the tongue nightly. | | | | 5 | | tablet | | | | | | + + + +---------+ + + | aspirin 81 MG | Take 81 mg by mouth | | 0 | 03/29/20 | | | tablet | Daily. | | | 12 | 4 | + + + +---------+ + + | atenolol | Take 25 mg by mouth | | 0 | 03/31/20 | | | (TENORMIN) 50 mg | nightly. | | | 12 | 5 | | tablet | | | | | | + + + +---------+ + + | B Complex Vitamins | Take 1 capsule by | | 0 | | | | (VITAMIN B COMPLEX | mouth Daily. | | | | 5 | | PO) | | | | | | + + + +---------+ + + | Calcium Citrate | Take 1,040 mg by | | 0 | 03/29/20 | | | 1040 MG TABS | mouth Daily. | | | 12 | 5 | + + + +---------+ + + | Cholecalciferol | Take 2,000 Units by | | 0 | 03/31/20 | | | (VITAMIN D3) 2000 | mouth 2 times daily. | | | 12 | 5 | | UNITS CAPS | | | | | | + + + +---------+ + + | Cyanocobalamin | Place 2,500 mcg | | 0 | | | | (VITAMIN B12 PO) | under the tongue | | | | 5 | | | Daily. | | | | | + + + +---------+ + + | diazepam (VALIUM) | Take 1 tablet by | 60 | 0 | 07/05/20 | | | 5 mg tablet | mouth every 6 hours | tablet | | 14 | 5 | | | as needed. | | | | | + + + +---------+ + + | Digestive Enzymes | Take 2 capsules by | | 0 | | | | (PAPAYA ENZYME PO) | mouth 3 times daily. | | | | 5 | + + + +---------+ + + | divalproex | 1250mg by mouth at | | 0 | 03/31/20 | | | (DEPAKOTE) 500 mg EC | bedtime | | | 12 | 5 | | tablet | | | | | | + + + +---------+ + + | fluocinonide | Apply to affected | | 0 | 03/29/20 | | | (LIDEX) 0.05 % | area twice daily as | | | 12 | 9 | | ointment | needed | | | | | + + + +---------+ + + | | Take 1-2 tablets by | 60 | 0 | 07/05/20 | | | HYDROcodone-acetamin | mouth every 4 hours | tablet | | 14 | 4 | | ophen (NORCO) 10-325 | as needed for Pain. | | | | | | mg per tablet | | | | | | + + + +---------+ + + | | | | 0 | 06/06/20 | | | HYDROCODONE-ACETAMIN | | | | 12 | 4 | | OPHEN PO | | | | | | + + + +---------+ + + | ibuprofen | Take 800 mg by mouth | | 0 | | | | (ADVIL,MOTRIN) 800 | every 8 hours as | | | | 4 | | MG tablet | needed. | | | | | + + + +---------+ + + | Lactulose SOLN | Take 30 mLs by mouth | 240 mL | 1 | 07/05/20 | | | | every 6 hours as | | | 14 | 5 | | | needed | | | | | | | (Constipation). | | | | | + + + +---------+ + + | levothyroxine | Take 100 mcg by | | 0 | 03/29/20 | | | (SYNTHROID) 100 mcg | mouth Daily. | | | 12 | 5 | | tablet | | | | | | + + + +---------+ + + | lisinopril | Take 10 mg by mouth | | 0 | 03/31/20 | | | (PRINIVIL, ZESTRIL) | Daily. | | | 12 | 5 | | 10 mg tablet | | | | | | + + + +---------+ + + | Magnesium 250 MG | Take 2 tablets by | | 0 | | | | TABS | mouth nightly. | | | | 9 | + + + +---------+ + + | Melatonin 5 MG | Place 5 mg under the | | 0 | 03/29/20 | | | SUBL | tongue nightly. | | | 12 | 9 | + + + +---------+ + + | metFORMIN | Take 500 mg by mouth | | 0 | | | | (GLUCOPHAGE) 500 mg | as needed. | | | | 5 | | tablet | | | | | | + + + +---------+ + + | metFORMIN | Take 500 mg by mouth | | 0 | | | | (GLUCOPHAGE-XR) 500 | 2 times daily. | | | | 5 | | mg 24 hr tablet | | | | | | + + + +---------+ + + | methocarbamol | Take 750 mg by mouth | | 0 | | | | (ROBAXIN) 750 mg | 3 times daily as | | | | 4 | | tablet | needed. | | | | | + + + +---------+ + + | Multiple | Take 1 tablet by | | 0 | | | | Vitamins-Minerals | mouth Daily. | | | | 9 | | (CENTRUM SILVER PO) | | | | | | + + + +---------+ + + | OLANZapine zydis | Take 15 mg by mouth | | 0 | 03/31/20 | | | (ZYPREXA ZYDIS) 15 | nightly. | | | 12 | 5 | | MG disintegrating | | | | | | | tablet | | | | | | + + + +---------+ + + | Ava-3 Fatty | Take 1,000 mg by | | 0 | 03/29/20 | | | Acids (FISH OIL | mouth 3 times daily. | | | 12 | 5 | | CONCENTRATE) 1000 MG | | | | | | | CAPS | | | | | | + + + +---------+ + + | omeprazole | Take 40 mg by mouth | | 0 | 05/24/20 | | | (PRILOSEC) 40 MG | every morning | | | 14 | 9 | | capsule | (before breakfast). | | | | | + + + +---------+ + + | omeprazole | Take 40 mg by mouth | | 0 | 03/31/20 | | | (PRILOSEC) 40 MG | Daily. | | | 12 | 5 | | capsule | | | | | | + + + +---------+ + + | PARoxetine (PAXIL) | Take 20 mg by mouth | | 0 | 03/29/20 | | | 20 mg tablet | Daily. | | | 12 | 9 | + + + +---------+ + + | tocopherol | Take 400 Units by | | 0 | | | | (VITAMIN E) 400 | mouth 2 times daily. | | | | 9 | | units capsule | | | | | | + + + +---------+ + + | UNCODED | Diagnosis: | 1 | 0 | 02/22/20 | | | MEDICATIONIndication | Obstructive Sleep | Device | | 13 | 9 | | s: Obstructive sleep | ApneaICD-9: | | | | | | apnea (adult) | 327.23Length of | | | | | | (pediatric) | Need: 99 Months | | | | | + + + +---------+ + + documented as of this encounter Plan of Treatment Not on filedocumented as of this encounter Procedures + +--------+ + + + | Procedure Name | Priori | Date/Time | Associated Diagnosis | Comments | | | ty | | | | + +--------+ + + + | FL FENG STATS NO | Routin | 07/02/2014 | Spinal stenosis, | Results for this | | CHARGE | e | 2:11 PM | lumbar region, | procedure are in the | | | | PDT | without neurogenic | results section. | | | | | claudication | | + +--------+ + + + documented in this encounter Results NATHAN Vyas No Charge (07/02/2014 2:11 PM PDT) + + | Specimen | + + | | + + + + + | Narrative | Performed At | + + + | No Radiologist interpretation, please see Chart Review. | [facility] | + + + + + | Procedure Note | + + | 07/02/2014 2:11 PM PDT No Radiologist interpretation, please see Chart Review. | + + + +---------+ + + | Performing | Address | City/State/Zipcode | Phone Number | | Organization | | | | + +---------+ + + | [facility] | | | | + +---------+ + + documented in this encounter Visit Diagnoses + + | Diagnosis | + + | Spinal stenosis, lumbar region, without neurogenic claudication - Primary | + + documented in this encounter"
--- OUTSIDE RECORDS SUMMARY | ~2020-07-01 | XMS | Encounter Summary ---
Demographics + + + | Address | [address] [facility] [address] | | | [place] [address] | + + + | Home Phone | | + + + | Preferred Language | Unknown | + + + | Marital Status | Single | + + + | Pentecostalism Affiliation | Unknown | + + + | Race | White | + + + | Ethnic Group | Not or | + + + Author + + + | Author | [facility] | + + + | Organization | [facility] | + + + | Address | Unknown | + + + | Phone | Unavailable | + + + Support + + + + + | Name | Relationship | Address | Phone | + + + + + | Kelsy Bautista | ECON | [address] | | | | | [place] | | | | | [address] | | + + + + + Care Team Providers + +------+ + | Care High Pressure Operator Name | Role | Phone | + +------+ + PCP | Unavailable | + +------+ + Encounter Details +--------+ + + + + | Date | Type | Department | Care Team | Description | +--------+ + + + + | 07/03/ | Office | General Internal | Note, Outpatient | Progress Note | | 1996 | Visit-Trans | Medicine [address] | Clinic | | | | isabelle | Nicole Quiroz | | | | | | Mailcode: [id number] | | | | | | Outpatient Clinic | | | | | | [facility], [address] | | | | | | [place], [place] | | | | | | [address] | | | | | | [phone] | | | +--------+ + + + [...] documented as of this encounter Progress Notes Interface, Char Puller In - 12/11/2006 5:03 AM [facility] DATE: 07/03/97 INFECTIOUS DISEASE CLINIC: REFERRED BY: Ms. 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 Cardoza for probable recurrent breast abscesses of her left breast. The patient has had problems with depression, recurrent sinusitis, and was stated to have seasonal problems, worse in the winter than in the summer. HISTORY OF PRESENT ILLNESS: On about February 20, 1997 she developed a lump in her breast, which after surgery became purulent, and developed mastitis that has recurred despite multiple antibiotics and several drainage procedures by Dr. Cardoza. The area of drainage is inferior and medial on her left breast and may well represent an obstructive duct. The lesions are red, painful, nodular, and recurrent despite the antibiotic therapy that has been given. The question that comes to mind in relation to this lesion is the possibility of an obstructive duct which was drainage of either a sebaceous or other lacteal material into the breast to cause this disorder. The patient describes tenderness, erythema, and pain, but also describes a sensation of systemic illness as well. She has recent onset of rash below her left breast independent of the areas of induration. A panniculitis is a diagnostic possibility on this lady but because of the possible lining up relation, she could have lacteal obstruction. FAMILY HISTORY: Gives a history of hypertension and heart disease on her father's side, with high blood pressure, without diabetes on her mother's side. REVIEW OF SYSTEMS: Positive for sinusitis and use of a nasal inhaler. She had the usual childhood diseases, rubella and rubeola, chicken pox, had her tonsils taken out, and has also had a hysterectomy and oophorectomy five years ago. She is now, therefore, postmenopausal and has had night sweats with the last 10 which are no different now than then, except for the association with feverishness and local tenderness in her breast. She had trauma, fell out of a tree when she was a child, had ulcers diagnosed in childhood at age 18 but none subsequently. Has never had a chest x-ray. Has gained 30 pounds of weight in the last three months with this particular illness, talking about comfort foods in relation to her current distress. MEDICATIONS: 1. Premarin. 2. Klonopin. 3. Prozac. 4. Doxycycline. 5. Zephrex. 6. Ambien. 7. Claritin. ALLERGIES: Allergic to sulfa, Indocin. OBJECTIVE: Weight: 190 pounds. Heart rate: 92. Temperature: 97.2. Physical examination reveals her to be a slightly obese, large stature white female with normal skin over her face. CHEST: She has induration of her left breast with lesions as diagramed on our chart note, showing a para-areolar area medial to the left nipple and two lesions distally going in the area of about 7:00 o'clock. No axillary adenopathy nor changes suggestive of hydradenitis. HEART: Normal heart sounds, normal chest sounds. ABDOMEN: No visceromegaly. ASSESSMENT: My impression is that she has an obstructed lacteal duct. Culture data fails to demonstrate anything very exciting as far as bacterial pathogens, and her original biopsy raised the question of cystic breast disease with also a substantial possibility of hydradenitis because of a kind of diffuse nature of that entity, and we need to have those tissues re-reviewed to look specifically for hydradenitis. The patient has probably got an allergic reaction to her doxycycline which will be stopped. We will put her on cefuroxime. I will talk with Dr. Cardoza about the possibility of removing all of her current rigo and getting an assessment and if there is obstruction, watching it closely during the period of the next week. PLAN: 1. The patient will be given cefuroxime, 250 mg t.i.d. 2. We will get a CBC and differential. 3. We will also culture the rigo. 4. We will get a chest x-ray and PPD with mumps control. 5. We will have her referred back to Dr. Cardoza for the definitive procedures and approach described above. Deon Lopez M.D. Professor, Medicine Head, Division of Infectious Disease SITA:sasha documented in this encounter Plan of Treatment Not on filedocumented as of this encounter Visit Diagnoses Not on filedocumented in this encounter"
--- OUTSIDE RECORDS SUMMARY | ~2020-07-01 | XMS | Encounter Summary ---
Demographics + + + | Address | [address] [address] | | | [place] [address] | + + + | Home Phone [...] [place] | | | | | [address] | | + + + + + Care Team Providers + +------+ + | Care Electrophysiologist Name | Role | Phone | + +------+ + | Thierry Fry MD | PCP | | + +------+ + Encounter Details +--------+ + + + + | Date | Type | Department | Care Team | Description | +--------+ + + + + | 03/06/ | Hospital | [facility] | Katharine Cardona PA-C | Essential | | 2015 | Encounter | MED CTR LABORATORY | [address] | hypertension | | | | [address] [place] | [place] [address] | | | | | [place], [place] | [phone] | | | | | [address] | | | | | | [phone] | | | +--------+ + + + [...] +---------+ + + | OLANZapine | Take 20 mg by mouth | | 0 | | | | (ZYPREXA) 20 MG | nightly. | | | | [...] 0 | | | | (VITAMIN D-3) 77721 | mouth Once a week. | | | | 0 | | units CAPS | | | [...] mouth every morning | | | | 0 | | tablet | (before breakfast). | [...] (with | tablet | | 15 | 0 | | mg 24 hr | breakfast). [...] + + + +---------+ + + | Moravia-3 Fatty | Take 1,000 mg by | 60 each | 5 | 03/09/20 | | | Acids (FISH OIL | mouth 2 times daily. | | | 15 | 9 | | CONCENTRATE) 1000 MG | | | | | | | CAPS | | | | | | + + + +---------+ + + | Moravia-3 Fatty | Take 1,000 mg by | [...] | 4.2 | 3.5 - 5.1 | [facility] | [...] 12 | 7 - 18 mg/dL | [facility] | | | | | | [facility] | | | | | | MEDICAL | | | | | | CENTER - | | | | | | LABORATORY | | + + + + + + | Creatinine | 0.66 | 0.60 - 1.30 | [facility] | | | | | mg/dL | [facility] | | | | | | MEDICAL | | | | | | CENTER - | | | | | | LABORATORY | | + + + + + + | eGFR, | >60Comment: GLOMERULAR | >=60 | [facility] | | | non- | FILTRATION | mL/min/1.73m2 | [facility] | | | Turkmen | RATE,ESTIMATED | | MEDICAL | | | | mL/min/1.60o4Xgwe than | | CENTER - | | [...] | 9.6 | 8.3 - 10.5 | [facility] | | | | | mg/dL | [facility] | | | | | | MEDICAL | | | | | | CENTER - | | | | | | LABORATORY | | + + + + + + | Albumin | 4.1 | 3.2 - 5.0 g/dL | [facility] | | | | [...] | | bulin Ratio | | | [facility] | | | | | | [facility] | | | | | | CENTER - | | | | | | LABORATORY | | + + + + + + | BUN/Creatin | 18.2 | | [facility] | | | ine Ratio | | | [facility] | | [...] ST. | [address] | [place], [place] | [phone] | | [facility] | | [address] | | | - LABORATORY | | | | + + + + + documented in this encounter Visit Diagnoses + + | Diagnosis | + + | Essential hypertension Unspecified essential hypertension | + + documented in this encounter"
--- OUTSIDE RECORDS SUMMARY | ~2020-07-01 | XMS | Encounter Summary ---
Demographics + + + | Address | [address] [facility] [address] | | | [place] [address] | + + + | Home Phone | | + + + | Preferred Language | Unknown | + + + | Marital Status | | + + + | Buddhism Affiliation | 1013 | + + + [...] [place] | | | | | [address] | | + + + + + Care Team Providers + +------+ + | Care Transformation Analyst Name | Role | Phone | + +------+ + | Hari Samson DO | PCP | | + +------+ + Reason for Visit +--------+ + | Reason | Comments | +--------+ + | Other | 14 day Bardy | +--------+ + Encounter Details +--------+ + + + + | Date | Type | Department | Care Team | Description | +--------+ + + + + | 05/29/ | Procedure | [facility] | Dora De La Torre | Left bundle branch | | 2020 | visit | CARDIOLOGY [place] | [address] | block; Paroxysmal | | | | [address] | [address] | A-fib ([facility]); | | | | [address] | [place] [address] | Syncope, unspecified | | | | [place], [place] | [phone] | syncope type; Rapid | | | | [address] | | palpitations | | | | [phone] | | | +--------+ + + + [...] + documented as of this encounter Progress Cindy Schulte CMA - 05/29/2020 1:30 PM PDT14 day cardiac event monitor placed on patie nt. EOB/Billing information discussed. Instructions given and understood. 12:08pm [id number] signed by Cindy Nicholas CMA at 05/29/2020 12:12 PM PDTdocument ed in this encounter Plan of Treatment Not on filedocumented as of this encounter Visit Diagnoses + + | Diagnosis | + + | Left bundle branch block Other left bundle branch block | + + | Paroxysmal A-fib (HCC) Atrial fibrillation | + + | Syncope, unspecified syncope type | + + | Rapid palpitations Palpitations | + + documented in this encounter"
--- OUTSIDE RECORDS SUMMARY | ~2020-07-01 | XMS | Encounter Summary ---
Demographics + + + | Address | [address] [facility] [address] | | | [place] [address] | + + + | Home Phone [...] [place] | | | | | [address] | | + + + + + Care Team Providers + +------+ + | Care Senior Talent Acquisition Specialist Name | Role | Phone | [...] + + | 08/22/ | Documentati | [facility] | Katharine Moncada, | Other (urgent | | 2019 | on | CARDIOLOGY [facility] | Technologist | report) | | | | [address] | | | | | | [place] | | | | | | [address] | | | | | | [phone] | | | +--------+ + + + [...]
--- OUTSIDE RECORDS SUMMARY | ~2020-07-01 | XMS | Encounter Summary ---
Demographics + + + | Address | [address] [facility] [address] | | | [place] [address] | + + + | Home Phone [...] [place] | | | | | [address] | | + + + + + Care Team Providers + +------+ + | Care Catering Server Name | Role | Phone | + +------+ + | Natalee Andersen NP | PCP | | + +------+ + Reason for Visit + +--------+ + | Reason | Onset | Comments | | | Date | | + +--------+ + | Appointment | 07/19/ | | | | 2013 | | + +--------+ + Encounter Details +--------+ + + + + | Date | Type | Department | Care Team | Description | +--------+ + + + + | 07/19/ | Telephone | [facility] | Frandy Teresa, | Appointment | | 2013 | | NEUROSURGERY [address] | DO [address] | | | | | [address] [address] | [address] [place], [place] | | | | | [place], [place] | [id number] | | | | | [address] | | | | | | [phone] | | | +--------+ + + + [...] Encounter - Shayne Aragon Cert MA - 07/22/2014 11:51 AM PDTI let Heather know that unfortunately we do not have any appointments available next week for Cindy to re-candida riley to. She will let Cindy know and if she still cannot make her appointment, they will c all. SHAYNE ARAGON elephone Encounromero r - Shayne Aragon Cert MA - 07/22/2014 10:52 AM PDTI returned heather's call and left her a m essage. SHAYNE ARAGON elephone Tiffani Spivey - 07/22/2014 8:09 AM PDTSusalesly from [facility] called back this morning to isamar mejía that she spoke with the patient again regarding this appointment and the patient would be ok with rescheduling to a time the following week. She just didn't want to make the trip down here right after she got back home to [place]. Heather can be reached at [phone] ectronically signed by Tiffani Humphrey at 07/22/2014 8:11 AM PDTTelephone Encounter - Lashawn Metzger - 07/19/2014 12:56 PM PDTSusan from [facility] called to confirm Cindy' s appointment for 07/25/14. She states Cindy is being discharged that day and would not yanes ve transportation to the appointment so she would like to reschedule it to sometime earlier that week so that they can help. Please call. Electronically signed by Lashawn Metzger at 12:58 PM PDTdocumented in this encounter Plan of Treatment Not on filedocumented as of this encounter Visit Diagnoses Not on filedocumented in this encounter"
--- OUTSIDE RECORDS SUMMARY | ~2020-07-01 | XMS | Encounter Summary ---
Demographics + + + | Address | [address] [facility] [address] | | | [place] [address] | + + + | Home Phone [...] [place], [place] | | | | | [address] | | + + + + + Care Team Providers + +------+ + | Care Superintendent Custodian Janitor Name | Role | Phone | + +------+ + PCP | Unavailable | + +------+ + Encounter Details +--------+ + + + + | Date | Type | Department | Care Team | Description | +--------+ + + + + | 02/02/ | Hospital | [facility] | | | | 1997 - | Encounter | MED CTR GENERIC PSY | | | | | | CONV DEPT [address] | | | | 02/05/ | | [place], | | | | 1997 | | [place] [address] | | | | | | [phone] | | | +--------+ + + + [...]
--- OUTSIDE RECORDS SUMMARY | ~2020-07-01 | XMS | Encounter Summary ---
Demographics + + + | Address | [address] [facility] [address] | | | [place] [address] | + + + | Home Phone [...] [place] | | | | | [address] | | + + + + + Care Team Providers + +------+ + | Care Buccaro Name | Role | Phone | + +------+ + PCP | Unavailable | + +------+ + Encounter Details +--------+ + + + + | Date | Type | Department | Care Team | Description | +--------+ + + + + | 02/24/ | Hospital | [facility] | | | | 1997 | Encounter | MED CTR EMERGENCY | | | | | | CENTER [address] | | | | | | [place] | | | | | | [address] | | | | | | [phone] | | | +--------+ + + + [...]
--- OUTSIDE RECORDS SUMMARY | ~2020-07-01 | XMS | Encounter Summary ---
Demographics + + + | Address | [address] [facility] [address] | | | [place] [address] | + + + | Home Phone | | + + + | Preferred Language | Unknown | + + + | Marital Status | | + + + | Zoroastrianism Affiliation | 1013 | + + + | Race | White | + + + | Ethnic Group | Not or | + + + Author + + + | Author | [facility] | | | and [place] | + + + | Organization | [facility] | | | and [place] | + + + | Address | Unknown | + + + | Phone | Unavailable | + + + Support + + + + + | Name | Relationship | Address | Phone | + + + + + | Araceli Sibley | ECON | [place] | | | | | [address] | | + + + + + Care Team Providers + +------+ + | Care Mysql Database Administrator Name | Role | Phone | + +------+ + | Natalee Andersen NP | PCP | | + +------+ + Encounter Details +--------+ + + + + | Date | Type | Department | Care Team | Description | +--------+ + + + + | 06/25/ | Hospital | [facility] | Frandy Teresa, | Acquired | | 2014 | Encounter | MED CTR XRAY [address] | DO [address] | spondylolisthesis | | | | [place] | [address] [place], [place] | | | | | [place] [address] | [address] | | | | | [phone] | | | +--------+ + + + [...] + + + +---------+ + + | [place]-3 Fatty | Take 1,000 mg by | [...]
--- OUTSIDE RECORDS SUMMARY | ~2020-07-01 | XMS | Encounter Summary ---
Demographics + + + | Address | [address] [facility] [address] | | | [place] [address] | + + + | Home Phone [...] [place] | | | | | [address] | | + + + + + Care Team Providers + +------+ + | Care Retail Beauty Specialist Name | Role | Phone | + +------+ + | Natalee Andersen NP | PCP | | + +------+ + Reason for Visit +--------+--------+ + | Reason | Onset | Comments | | | Date | | +--------+--------+ + | Other | 07/29/ | multiple questions | | | 2013 | | +--------+--------+ + Encounter Details +--------+ + + + + | Date | Type | Department | Care Team | Description | +--------+ + + + + | 07/29/ | Telephone | [facility] | Frandy Cagle, | Other (multiple | | 2013 | | NEUROSURGERY [address] | DO [address] | questions) | | | | [facility] | [address] [place], [place] | | | | | [place], [place] | [id number] | | | | | [address] | | | | | | [phone] | | | +--------+ + + + [...] Encounter - Shayne Aragon Cert MA - 07/29/2014 2:39 PM PDTI called and let Yunior freitas know that her Rx has been placed in the mail and will likely go out tomorrow. I also l et her know that a Rx for Medrol dospak has been sent to her pharmacy and to let us know if her symptoms are not improved in about 1 week. SHAYNE ARAGON ddendum Note - Frandy Morrison DO - 07/29/2014 1:51 PM PDT Addended by: FRANDY CAGLE on: 07/29/2014 13:51 Modules accepted: Orders elephone Encounter - Frandy Cagle DO - 07/29/2014 1:50 PM PDTLets try a medrol dosepak and give it a week . If no better after that, call us and I might get a repeat MRI. [place] ordered. Thanks. ddendum Note - Shayne Aragon Cert MA - 07/29/2014 12:47 PM PDT Addended by: SHAYNE ARAGON on: 07/29/2014 12:47 Modules accepted: Orders elephone Encoun ter - Shayne Aragon Cert MA - 07/29/2014 12:44 PM PDTThe left foot numbness is all the time when she is standing or walking. I relayed to her to avoid the aspirin for 3 months. She would like her Rx mailed to her a ddress on file. Please advise and sign Rx. Thank you, SHAYNE ARAGON elephone Encounte r - Frandy Cagle DO - 07/29/2014 11:58 AM PDTIs that left foot numbness all the time (wh en she's standing or walking), or is it intermittent? No aspirin yet please. Wait until 3 mo nths postop if she can. Refill is fine. Thanks. elephone Enco unter - Shayne Aragon Cert MA - 07/29/2014 11:19 AM PDTCall [facility] fur ther [facility]. She would like to know if she can start taking her baby aspirin again or if she should wait? She also states that her left foot goes numb when she is walking or sta nding and when she is lying down or sitting the feeling comes back. Is this normal? She is requesting a refill be mailed to her for her [place] 10/325mg which was given to her on last but filled today. She is worried because this needs to be filled again for her nex t Tuesday and doesn't want to run out before it were to reach her house in the mail. She is otherwise doing well and feeling well. She is S/P an L5-S1 TLIF on 07/02/14 and was just seen for her 4 week PO last . Please advise. SHAYNE ARAGON eleLashawn Kebede - 07/29/2014 11:13 AM PDTPatient called with a few different questions. 1. She would like to know when she can start taking aspirin again. 2. She states her left foot is numb with no other symptoms and is wondering if she should b e concerned about this. 3. She has a question regarding the pain medication that she is taking. Electronically sign ed by Lashawn Metzger at 07/29/2014 11:15 AM MELANIEdocumented in this encounter Plan of Treatment Not on filedocumented as of this encounter Visit Diagnoses Not on filedocumented in this encounter"
--- OUTSIDE RECORDS SUMMARY | ~2020-07-01 | XMS | Encounter Summary ---
Demographics + + + | Address | [address] [facility] [address] | | | [place] [address] | + + + | Home Phone [...] [place] | | | | | [address] | | + + + + + Care Team Providers + +------+ + | Care Principal Process Engineer Name | Role | Phone | + +------+ + PCP | Unavailable | + +------+ + Encounter Details +--------+ + + + + | Date | Type | Department | Care Team | Description | +--------+ + + + + | 12/27/ | Hospital | [facility] | | | | 1995 | Encounter | MED CTR LABORATORY | | | | | | [address] | | | | | | [place] | | | | | | [address] | | | | | | [phone] | | | +--------+ + + + [...]
--- OUTSIDE RECORDS SUMMARY | ~2020-07-01 | XMS | Encounter Summary ---
Demographics + + + | Address | [address] [facility] | | | [place] [address] | + + + | Home Phone [...] [place] | | | | | [address] | | + + + + + Care Team Providers + +------+ + | Care Agricultural Produce Packer Name | Role | Phone | + +------+ + PCP | Unavailable | + +------+ + Encounter Details +--------+ + + + + | Date | Type | Department | Care Team | Description | +--------+ + + + + | 03/11/ | Hospital | [facility] | Deon Gonzales | | | 2005 | Encounter | MED CTR SLEEP | MD [address] | | | | | [place] [address] | [address] [place] | | | | | [place], [place] | [place] [address] | | | | | [address] | [phone] | | | | | [phone] | | | +--------+ + + + [...]
--- OUTSIDE RECORDS SUMMARY | ~2020-07-01 | XMS | Encounter Summary ---
Demographics + + + | Address | [address] [facility] | | | [place] [address] | + + + | Home Phone [...] [place] | | | | | [address] | | + + + + + Care Team Providers + +------+ + | Care Clinical Studies Specialist Name | Role | Phone | + +------+ + | Natalee Andersen NP | PCP | | + +------+ + Encounter Details +--------+ + + + + | Date | Type | Department | Care Team | Description | +--------+ + + + + | 05/02/ | Hospital | [facility] | Frandy Teresa, | Back pain | | 2013 | Encounter | MED CTR XRAY [address] | DO [address] | | | | | [place] | [address] [place], [place] | | | | | [place] [address] | [address] | | | | | [phone] | | | +--------+ + + + [...] + + + +---------+ + + | [place]-3 Fatty | Take 1,000 mg by | [...] | Procedure Note | + + | Juan Manohar Results In - 05/02/2014 11:22 AM PDT [...] + | MISCELLANEOUS LAB | | | [phone] | + +---------+ + + | MISCELANIOUS LAB | | | [phone] | + +---------+ + + documented in this encounter Visit Diagnoses + + | Diagnosis | + + | Back pain Backache, unspecified | + + documented in this encounter"
--- OUTSIDE RECORDS SUMMARY | ~2020-07-01 | XMS | Encounter Summary ---
Demographics + + + | Address | [address] [facility] | | | [place] [address] | + + + | Home Phone [...] [place] | | | | | [address] | | + + + + + Care Team Providers + +------+ + | Care Magnet Placer Name | Role | Phone | + +------+ + PCP | Unavailable | + +------+ + Encounter Details +--------+ + + + + | Date | Type | Department | Care Team | Description | +--------+ + + + + | 06/30/ | Hospital | [facility] | | | | 2000 | Encounter | MED CTR EMERGENCY | | | | | | CENTER [address] | | | | | | [place] | | | | | | [address] | | | | | | [phone] | | | +--------+ + + + [...]
--- OUTSIDE RECORDS SUMMARY | ~2020-07-01 | XMS | Encounter Summary ---
Demographics + + + | Address | [address] [facility] [address] | | | [place] [address] | + + + | Home Phone [...] [place], [place] | | | | | [address] | | + + + + + Care Team Providers + +------+ + | Care Code Inspector Name | Role | Phone | + +------+ + PCP | Unavailable | + +------+ + Encounter Details +--------+ + + + + | Date | Type | Department | Care Team | Description | +--------+ + + + + | 01/16/ | Hospital | [facility] | | | | 2002 | Encounter | MED CTR XRAY [address] | | | | | | [address] | | | | | | [place] [address] | | | | | | [phone] | | | +--------+ + + + [...]
--- OUTSIDE RECORDS SUMMARY | ~2020-07-01 | XMS | Encounter Summary ---
Demographics + + + | Address | [address] [facility] | | | [place] [address] | + + + | Home Phone [...] [place] | | | | | [address] | | + + + + + Care Team Providers + +------+ + | Care Orchestra Leader Name | Role | Phone | [...] + + | 09/10/ | Documentati | [facility] | Katharine Moncada, | Other (urgent | | 2019 | on | CARDIOLOGY GENESIS | Technologist | report) | | | | [address] | | | | | | [place] | | | | | | [address] | | | | | | [phone] | | | +--------+ + + + [...]
--- OUTSIDE RECORDS SUMMARY | ~2020-07-01 | XMS | Encounter Summary ---
Demographics + + + | Address | [address] [facility] | | | [place] [address] | + + + | Home Phone [...] [place] | | | | | [address] | | + + + + + Care Team Providers + +------+ + | Care Turret Lathe Machinist Name | Role | Phone | [...] + + | 07/06/ | Emergency | [facility] | Yunior Sherman, | Chest pain, | | 2014 | | MED CTR EMERGENCY | [address] | unspecified chest | | | | CENTER [address] | [place], [place] | pain type (Primary | | | | [place], [place] | [address] | Dx) | | | | [address] | | | | | | [phone] | | | +--------+ + + + [...] sent through Care Everywhere.CHEST PAIN, NON CARDIAC (MONGOLIAN)documented in this encounter Medications at Time of [...] 0 | | | | (VITAMIN D-3) [address] | mouth Once a week. | | [...] | | | | | ([facility]) | | | | | | [...] + + + +---------+ + + | [place]-3 Fatty | Take 1,000 mg by | [...] documented as of this encounter ED Notes Nora Benavides RN - 07/06/2015 5:16 PM PDTPt discharged [...] DO; Location: [facility] MAIN OR Cardiac catherization CURRENT MEDICATIONS [...] mg by mouth Daily. CHOLECALCIFEROL (VITAMIN D-3) 15536 UNITS CAPS Take 50,000 Units by mouth [...] pain. She was [facility]. She's had more than 24 [...] [address] | [place] | [phone] | | [facility] | | [address] | | | - LABORATORY | | [...] + | [facility] | [address] | [place] | [phone] | | [facility] | | [address] | | | - LABORATORY | | | | + + + + + Troponin I (07/06/2015 3:45 PM PDT) + + + + + + | Component | Value | Ref Range | Performed | Pathologist | | | | | At | Signature | + + + + + + | Troponin I | <0.01Comment: Reference | <0.06 ng/mL | [facility] | | | | Ranges:0.00-0.06 = | [...] | | | | | | [employer] | | | | | [...] ST. | [address] | [place], [place] | [phone] | | [facility] | | [address] | | | - LABORATORY | | [...] mL/min/1.73m2 | [facility] | | | [employer] | RATE,ESTIMATED | | MEDICAL | | | | mL/min/1.55h5Kcdu than | | CENTER - | | [...] [address] | [place] | [phone] | | [facility] | | [address] | | | - LABORATORY | | [...] | | | Cells | | | [facility] | | | | | | MEDICAL | | | | | | CENTER - | | | | | | LABORATORY | | + +-------+ + + + | Red Blood | 4.88 | 3.70 - 5.20 | [facility] | | | Cells | | M/uL | [facility] | | | | | | MEDICAL | | | | | | CENTER - | | | | | | LABORATORY | | + +-------+ + + + | Hemoglobin | 13.9 | 11.5 - 16.0 | [facility] | | | | | g/dL | [facility] | | | | | [...] + | [facility] | [address] | [place] | [phone] | | [facility] | | [address] | | | - LABORATORY | | [...] | | | | MD NAZARIO JON ([id number]) | | | | | | on [...]
--- OUTSIDE RECORDS SUMMARY | ~2020-07-01 | XMS | Encounter Summary ---
Demographics + + + | Address | [address] [facility] | | | [place] [address] | + + + | Home Phone [...] [place] | | | | | [address] | | + + + + + Care Team Providers + +------+ + | Care Affiliate Marketing Coordinator Name | Role | Phone | + +------+ + PCP | Unavailable | + +------+ + Encounter Details +--------+ + + + + | Date | Type | Department | Care Team | Description | +--------+ + + + + | 02/02/ | Hospital | [facility] | Serafin Bautista | | | 2011 | Encounter | MED CTR XRAY [address] | T, [address] | | | | | [place] | [address] [place] | | | | | [place] [address] | [address] | | | | | [phone] | | | +--------+ + + + [...] Performed At | + + + | [facility] Diagnostic Imaging Department | [place] | | [address] [facility] | [facility] | | PROCEDURE: EPIDURAL STEROID | [...] Transcribed Date/Time: | | | 02/03/2012 18:45 Shipping Weigher: <Electronically Signed | | | by Serafin Bautista MD> 02/14/12 0916 | | + + + + + | Procedure Note | + + | Juan, Rad Conversion - 11/30/2013 5:06 PM [facility] | | Diagnostic Imaging Department | | [address] [facility] | | | | | [...] | Transcribed Date/Time: 02/03/2012 18:45 | | Shipping Weigher: MAHIN | | <Electronically Signed by Serafin Bautista MD> 02/14/12 0916 | + + + +---------+ + + | Performing | Address | City/State/Zipcode | Phone Number | | Organization | | | | + +---------+ + + | [place] | | | | | [place] | | | | + +---------+ + + documented in this encounter Visit Diagnoses Not on filedocumented in this encounter"
--- OUTSIDE RECORDS SUMMARY | ~2020-07-01 | XMS | Encounter Summary ---
Demographics + + + | Address | [address] [facility] | | | [place] [address] | + + + | Home Phone [...] [place] | | | | | [address] | | + + + + + [...] + | 08/13/ | Documentati | [facility] | Katharine Moncada, | Other (urgent | | 2019 | on | CARDIOLOGY GENESIS | Technologist | report) | | | | [address] | | | | | | [place] | | | | | | [address] | | | | | | [phone] | | | +--------+ + + + [...]
--- OUTSIDE RECORDS SUMMARY | ~2020-07-01 | XMS | Encounter Summary ---
Demographics + + + | Address | [address] [facility] | | | [place] [address] | + + + | Home Phone [...] [place] | | | | | [address] | | + + + + + Care Team Providers + +------+ + | Care Training Mgr Name | Role | Phone | + +------+ + | Natalee Andersen NP | PCP | | + +------+ + Encounter Details +--------+ + + + + | Date | Type | Department | Care Team | Description | +--------+ + + + + | 06/26/ | Hospital | [facility] | Heather Cordero PT | | | 2013 | Encounter | MED CTR ACUTE | [address] | | | | | PHYSICAL THERAPY | [place] | | | | | [address] [place] | [address] | | | | | [place] [address] | | | | | | [phone] | | | +--------+ + + + [...] + + + +---------+ + + | [place]-3 Fatty | Take 1,000 mg by | [...]
--- OUTSIDE RECORDS SUMMARY | ~2020-07-01 | XMS | Encounter Summary ---
Demographics + + + | Address | [address] [facility] | | | [place] [address] | + + + | Home Phone [...] [place] | | | | | [address] | | + + + + + Care Team Providers + +------+ + | Care Furnace Operator And Tender Name | Role | Phone | [...] | 03/10/ | Refill | [facility] | Katharine Cardona PA-C | Medication Refill | | 2014 | | MEDICINE [address] | [address] [place] | | | | | [place], | [place] [address] | | | | | [place] [address] | [phone] | | | | | [phone] | | | +--------+--------+ + + + [...]
--- OUTSIDE RECORDS SUMMARY | ~2020-07-01 | XMS | Encounter Summary ---
Demographics + + + | Address | [address] [facility] | | | [place] [address] | + + + | Home Phone [...] | Organization | [facility] | | | and [place] | + + + | Address | Unknown | + + + | Phone | Unavailable | + + + Support + + + + + | Name | Relationship | Address | Phone | + + + + + | Araceli Sibley | ECON | [place] | | | | | [address] | | + + + + + Care Team Providers + +------+ + | Care Director Of Provider Relations Name | Role | Phone | + [...] | | | spondylolist | | [address] | | | | | hesis | | [place], | | | | | Spinal | | [place] [address] | | | | | stenosis, | | Phone: | | | | | lumbar | | [phone] | | | | | region, | | Fax: | | | | | without | | [phone] | | | | | neurogenic | [...] | | | | | | | [place] | | | | | | [...] | | | | | | [place] | | | | | | | [...] | | | | | | [place] | | | | | | | [...] | | | | | [address] | [address] [place] | | | | | [place] | [address] | | | | | [address] | | | | | | [phone] | | | +--------+ + + + [...] +----+---+ + + | | 1 | Caliente | | | | 2 | 43-degrees | | | | 3 | | | | | 1 | | | +----+---+ + + | | 1 | Caliente off | | | | 4 | [...] EVALUATION Cindy Arndt 58 y.o. female 1955 [id number] Procedure: Procedure(s):MIS L5-S1 TRANSFORAMINAL LUMBAR INTERBODY FUSION [...] by Zen Mccord MD 07/02/2014 14:55 [facility] nesthesia Preproc edure Evaluation - Zen Mccord MD - 07/02/2014 8:36 AM PDTFormatting of this note m ight be different from the original. ANESTHESIA PREANESTHESIA EVALUATION Cindy Arndt 58 y.o. female 1955 [id number] Scheduled procedure LAMINECTOMY PLIF/TLIF INSTRUMENTATION [184] - MIS L5-S1 TRANSFORAMINAL LUMBAR INTERBODY FUSION Medical history, anesthesia, medications, allergy histories reviewed. ECG reviewed. Labs reviewed. ROS / Med History Ane (+) PONV. NPO status verified. CV (+) hypertension.(-) CAD, past MD, CHF, congenital heart disease, pulmonary hypertension, p [...]
--- OUTSIDE RECORDS SUMMARY | ~2020-07-01 | XMS | Encounter Summary ---
Demographics + + + | Address | [address] [facility] | | | [place] [address] | + + + | Home Phone [...] [place] | | | | | [address] | | + + + + + Care Team Providers + +------+ + | Care Customer Experience Consultant Name | Role | Phone | [...] + + | 07/08/ | Tele[facility] | [facility] | Frandy Teresa, | Other (post op call | | 2013 | | NEUROSURGERY [address] | DO [address] | ) | | | | [address] [facility] | [address] [place], [place] | | | | | [place], [place] | [id number] | | | | | [address] | | | | | | [phone] | | | +--------+ + + + [...] Aragon Cert MA - 07/08/2014 11:04 [facility] SHAYNE ARAGON documented in this encounter Plan of Treatment Not on filedocumented as of this encounter Visit Diagnoses Not on filedocumented in this encounter"
--- OUTSIDE RECORDS SUMMARY | ~2020-07-01 | XMS | Encounter Summary ---
Demographics + + + | Address | [address] [facility] | | | [place] [address] | + + + | Home Phone [...] [place] | | | | | [address] | | + + + + + Care Team Providers + +------+ + | Care Storage Brine Worker Name | Role | Phone | + +------+ + PCP | Unavailable | + +------+ + Encounter Details +--------+ + + + + | Date | Type | Department | Care Team | Description | +--------+ + + + + | 07/17/ | Hospital | [facility] | | | | 1997 | Encounter | MED CTR EMERGENCY | | | | | | CENTER [address] | | | | | | [place] | | | | | | [address] | | | | | | [phone] | | | +--------+ + + + [...]
--- OUTSIDE RECORDS SUMMARY | ~2020-07-01 | XMS | Encounter Summary ---
Demographics + + + | Address | [address] [facility] | | | [place] [address] | + + + | Home Phone [...] [place] | | | | | [address] | | + + + + + Care Team Providers + +------+ + | Care Search Developer Name | Role | Phone | [...] [id number] | | | | | | [place], [place] | | | | | | [address] | | | | | | [phone] | | | +--------+ + + + [...] [facility] | [address] | [place] [address] | | | PATHOLOGY | [address] [...] Re | | | | | | [id number] | | | | + + + + + + + + | Specimen | + + | | + + + + + + + | Performing | Address | City/State/Zipcode | Phone Number | | Organization | | | | + + + + + | [facility] | [address] | [place] [address] | | | PATHOLOGY | [address] [...] Re | | | | | | [address] | | | | + + + + + + + + | Specimen | + + | | + + + + + + + | Performing | Address | City/State/Zipcode | Phone Number | | Organization | | | | + + + + + | [facility] | [address] | [place] [address] | | | PATHOLOGY | [address] [...] Re | | | | | | 722396 | | | | + + + + + + + + | Specimen | + + | | + + + + + + + | Performing | Address | City/State/Zipcode | Phone Number | | Organization | | | | + + + + + | [facility] | [address] | [place] [address] | | | PATHOLOGY | [address] [...] Re | | | | | | [address] | | | | + + + + + + + + | Specimen | + + | | + + + + + + + | Performing | Address | City/State/Zipcode | Phone Number | | Organization | | | | + + + + + | [facility] | [address] | [place] [address] | | | PATHOLOGY | [address] | | | + + + + + documented in this encounter Visit Diagnoses Not on filedocumented in this encounter"
--- OUTSIDE RECORDS SUMMARY | ~2020-07-01 | XMS | Encounter Summary ---
Demographics + + + | Address | [address] [facility] | | | [place] [address] | + + + | Home Phone [...] [place] | | | | | [address] | | + + + + + Care Team Providers + +------+ + | Care Technician Biological Health Name | Role | Phone | + [...] + + | 05/19/ | Telephone | [facility] | Britt Dora | Other (Cancel | | 2020 | | CARDIOLOGY [place] | [address] | appointment) | | | | [address] | [address] | | | | | [address] | [place] [address] | | | | | [place], [place] | [phone] | | | | | [address] | | | | | | [phone] | | | +--------+ + + + [...] - 05/19/2020 10:42 AM PDTCalled [facility] with Dora Mendez [...]
--- OUTSIDE RECORDS SUMMARY | ~2020-07-01 | XMS | Encounter Summary ---
Demographics + + + | Address | [address] [facility] [address] | | | [place] [address] | + + + | Home Phone [...] [place], [place] | | | | | [address] | | + + + + + Care Team Providers + +------+ + | Care Regulatory Lead Name | Role | Phone | + +------+ + PCP | Unavailable | + +------+ + Encounter Details +--------+ + + + + | Date | Type | Department | Care Team | Description | +--------+ + + + + | 12/27/ | Hospital | [facility] | | | | 1997 - | Encounter | MED CTR GENERIC PSY | | | | | | CONV DEPT [address] | | | | 01/01/ | | [place], | | | | 1997 | | [place] [address] | | | | | | [phone] | | | +--------+ + + + [...]
--- OUTSIDE RECORDS SUMMARY | ~2020-07-01 | XMS | Encounter Summary ---
Demographics + + + | Address | [address] [facility] [facility] [address] [facility] | | | [place] [address] | + + + | Home Phone [...] [place], [place] | | | | | [address] | | + + + + + Care Team Providers + +------+ + | Care Word Processing Specialist Name | Role | Phone | + +------+ + PCP | Unavailable | + +------+ + Encounter Details +--------+ + + + + | Date | Type | Department | Care Team | Description | +--------+ + + + + | 05/23/ | Hospital | [facility] | | | | 1991 | Encounter | MED CTR XRAY [address] | | | | | | [place] | | | | | | [place] [address] | | | | | | [phone] | | | +--------+ + + + [...]
--- OUTSIDE RECORDS SUMMARY | ~2020-07-01 | XMS | Encounter Summary ---
Demographics + + + | Address | [address] [facility] [address] [address] [facility] | | | [place] [address] | + + + | Home Phone [...] [place] | | | | | [address] | | + + + + + Care Team Providers + +------+ + | Care Commissioning Agent Name | Role | Phone | + +------+ + | Hrai Samson DO | PCP | | + [...] | | | [address] [place] | [place] [address] | | | | | [place] [address] | | | | | | [phone] | | | +--------+ + + + [...]
--- OUTSIDE RECORDS SUMMARY | ~2020-07-01 | XMS | Encounter Summary ---
Demographics + + + | Address | [address] [facility] [address] [address] [facility] | | | [place] [address] | + + + | Home Phone [...] [place], [place] | | | | | [address] | | + + + + + Care Team Providers + +------+ + | Care Cottrell Operator Name | Role | Phone | + +------+ + PCP | Unavailable | + +------+ + Encounter Details +--------+ + + + + | Date | Type | Department | Care Team | Description | +--------+ + + + + | 02/24/ | Hospital | [facility] | | | | 1997 - | Encounter | MED CTR GENERIC PSY | | | | | | CONV DEPT [address] | | | | 02/26/ | | [place], | | | | 1997 | | [place] [address] | | | | | | [phone] | | | +--------+ + + + [...]
--- OUTSIDE RECORDS SUMMARY | ~2020-07-01 | XMS | Encounter Summary ---
Demographics + + + | Address | [address] [facility] | | | [place] [address] | + + + | Home Phone [...] [place] | | | | | [address] | | + + + + + [...] + + | 08/15/ | Documentati | [facility] | Katharine Moncada, | Other (urgent | | 2019 | on | CARDIOLOGY [place] | Technologist | report) | | | | [address] | | | | | | [place] | | | | | | [address] | | | | | | [phone] | | | +--------+ + + + [...]
--- OUTSIDE RECORDS SUMMARY | ~2020-07-01 | XMS | Encounter Summary ---
Demographics + + + | Address | [address] [facility] | | | [place] [address] | + + + | Home Phone [...] [place] | | | | | [address] | | + + + + + Care Team Providers + +------+ + | Care Director Volunteer Services Name | Role | Phone | [...] + + | 08/20/ | Documentati | [facility] | Katharine Moncada, | Other (urgent | | 2019 | on | CARDIOLOGY [place] | Technologist | report) | | | | [address] | | | | | | [place] | | | | | | [address] | | | | | | [phone] | | | +--------+ + + + [...]
--- OUTSIDE RECORDS SUMMARY | ~2020-07-01 | XMS | Encounter Summary ---
Demographics + + + | Address | [address] [facility] [address] [facility] | | | [place] [address] | + + + | Home Phone [...] [place] | | | | | [address] | | + + + + + Care Team Providers + +------+ + | Care Company Laundry Worker Name | Role | Phone | [...] | 08/05/ | Telephone | [facility] [place] | Frandy Teresa, | Other | | 2013 | | NEUROSURGERY [address] | DO [address] | | | | | [address] | [address] [place], [place] | | | | | [place], [place] | [phone] | | | | | [address] | | | | | | [phone] | | | +--------+ + + + [...]
--- OUTSIDE RECORDS SUMMARY | ~2020-07-01 | XMS | Encounter Summary ---
Demographics + + + | Address | [address] [facility] | | | [place] [address] | + + + | Home Phone [...] [place] | | | | | [address] | | + + + + + Care Team Providers + +------+ + | Care Insulation Applicator Name | Role | Phone | + [...] updated | | | | | [address] [facility], | address | | | | | [address] [place] | | | | | | [place] [address] | | | | | | [phone] | | | +--------+ + + + [...]
--- OUTSIDE RECORDS SUMMARY | ~2020-07-01 | XMS | Encounter Summary ---
Demographics + + + | Address | [address] [facility] | | | [place] [address] | + + + | Home Phone [...] [place] | | | | | [address] | | + + + + + Care Team Providers + +------+ + | Care Estimator Jewelry Name | Role | Phone | + +------+ + | Natalee Andersen NP | PCP | | + +------+ + Encounter Details +--------+ + + + + | Date | Type | Department | Care Team | Description | +--------+ + + + + | 07/06/ | Hospital | [facility] | Latricia Feliciano | | | 2014 | Encounter | MED CTR ACUTE | D, PT [address] | | | | | PHYSICAL THERAPY | [place] | | | | | [address] [place] | [address] | | | | | [place] [address] | | | | | | [phone] | | | +--------+ + + + [...] + + + +---------+ + + | [place]-3 Fatty | Take 1,000 mg by | [...]
--- OUTSIDE RECORDS SUMMARY | ~2020-07-01 | XMS | Encounter Summary ---
Demographics + + + | Address | [address] [facility] | | | [place] [address] | + + + | Home Phone [...] [place] | | | | | [address] | | + + + + + Care Team Providers + +------+ + | Care Treasury Management Sales Consultant Name | Role | Phone [...] + + | 04/05/ | Telephone | [facility] | [facility], | Results | | 2012 | | GASTROENTEROLOGY | [address] | | | | | [address] | [address] | | | | | [address] [place] | [place], [place] | | | | | [address] | [address] | | | | | [phone] | | | +--------+ + + + [...]
--- OUTSIDE RECORDS SUMMARY | ~2020-07-01 | XMS | Encounter Summary ---
Demographics + + + | Address | [address] [facility] [address] [facility] | | | [place] [address] | + + + | Home Phone [...] [place] | | | | | [address] | | + + + + + Care Team Providers + +------+ + | Care Cartoon Animator Name | Role | Phone | + +------+ + PCP | Unavailable | + +------+ + Encounter Details +--------+ + + + + | Date | Type | Department | Care Team | Description | +--------+ + + + + | 12/09/ | Hospital | [facility] | Serafin Bautista | | | 2011 | Encounter | MED CTR XRAY [address] | T, [address] | | | | | [place] | [address] [place] | | | | | [place] [address] | [address] | | | | | [phone] | | | +--------+ + + + [...] Performed At | + + + | [facility] Diagnostic Imaging Department | [facility] | | [address] [facility] | [facility] | | PROCEDURE NOTE EPIDURAL | DIAG [...] Manohar Martinez Conversion - 11/30/2013 4:45 PM Merged with [facility] | | Diagnostic Imaging Department | | [address] [facility] | | | | | | [...]
--- OUTSIDE RECORDS SUMMARY | ~2020-07-01 | XMS | Encounter Summary ---
Demographics + + + | Address | [address] [facility] | | | [place] [address] | + + + | Home Phone [...] [place] | | | | | [address] | | + + + + + Care Team Providers + +------+ + | Care Commercial Electrician Name | Role | Phone | [...] Closed | | Radiology | Diagnoses | [place], | | | | | | Thoracic or | Natalee L, | | | | | | lumbosacral | [address] | | | | | | neuritis or | [address] | | | | | | | [address] | | | | | | radiculitis, | [place], | | | | | | unspecified | [place] [address] | | | | | | | Phone: | | | | | | Degeneration | [phone] | | | | | | of lumbar | Fax: | | | | | | or | [phone] | | | | | | lumbosacral [...] + + | 03/11/ | Hospital | [facility] | Natalee Andersen | Thoracic or | | 2013 | Encounter | MED CTR MRI [address] | L, [address] | lumbosacral neuritis | | | | [place], | [address] | or radiculitis, | | | | [place] [address] | [place] [address] | unspecified; | | | | [phone] | [phone] | Degeneration of | | | | [...] + + + +---------+ + + | [place]-3 Fatty | Take 1,000 mg by | [...] encounter Miscellaneous Notes Miscellaneous - [facility] - 03/20/2014 12:00 AM PDT documented in [...] + | MISCELLANEOUS LAB | | | [phone] | + +---------+ + + | MISCELANIOUS LAB | | | [phone] | + +---------+ + + documented in this encounter Visit Diagnoses + + | Diagnosis | + + | Thoracic or lumbosacral neuritis or radiculitis, unspecified | + + | Degeneration of lumbar or lumbosacral intervertebral disc | + + documented in this encounter"
--- OUTSIDE RECORDS SUMMARY | ~2020-07-01 | XMS | Encounter Summary ---
Demographics + + + | Address | [address] [facility] | | | [place] [address] | + + + | Home Phone [...] [place] | | | | | [address] | | + + + + + Care Team Providers + +------+ + | Care Ventilating Expert Name | Role | Phone | [...] [address] | [address] [place], [place] | Anxiety; Anemia; | | | | [place], [place] | [address] | Irregular heartbeat; | | | | [address] | | Depression; | | | | [phone] | | Migraine; | | | | [...]
--- OUTSIDE RECORDS SUMMARY | ~2020-07-01 | XMS | Encounter Summary ---
Demographics + + + | Address | [address] [facility] [address] [facility] | | | [place] [address] | + + + | Home Phone [...] [place] | | | | | [address] | | + + + + + Care Team Providers + +------+ + | Care Manager Of Application Development Name | Role | [...] + + | 06/27/ | Office | [facility] | Yecenia Richardson, | Hypertension, | | 2019 | Visit | CARDIOLOGY [place] | MD Nitin RODRIGUES | unspecified type | | | | [address] | [place], [place] | (Primary Dx); | | | | [place] [address] | [address] | Bradycardia | | | | [place] | | | | | | [address] | | | | | | [phone] | | | +--------+---------+ + + + [...] urgent basis. Had an appointment today in [facility]. She has been feeling dizzy [...] Take by mouth. Blood Glucose Monitoring Suppl (WhistleTalk VERIO FLEX SYSTEM) w/Device KIT by Does [...] mg by mouth Daily. Cholecalciferol (VITAMIN D-3) 51682 units CAPS Take 50,000 Units by mouth [...] tablet Take 10 mg by mouth nightly. [place]-3 Fatty Acids (FISH OIL CONCENTRATE) 1000 MG [...]
--- OUTSIDE RECORDS SUMMARY | ~2020-07-01 | XMS | Encounter Summary ---
Demographics + + + | Address | [address] [facility] | | | [place] [address] | + + + | Home Phone [...] [place] | | | | | [address] | | + + + + + Care Team Providers + +------+ + | Care Linter Drier Operator Name | Role | Phone [...] + + | 09/19/ | Telephone | [facility] | Ashley Chávez | Other (Patient | | 2018 | | CARDIOLOGY [place] Abad, Pattern Drafter | calling to be seen | | | | [address] | | mirella. ) | | | | [place], [place] | | | | | | [address] | | | | | | [phone] | | | +--------+ + + + [...] Miscellaneous Notes Telephone Encounter - Ashley Chávez Pattern Drafter - 09/19/2019 10:41 AM PSTCall m cierra to patient to advise of Dr. Peterson's notes. Patient stated understanding. Patient asked why she couldn't be seen sooner, and I reminded her that we offered her a monae ner appointment that she turned down. Patient said thank you and hung up. BRODY:NABILAMA. el ephone Encounter - Ashley Chávez Pattern Drafter - 09/19/2019 10:40 AM PST Dora De La Torre, CAROLINE Peterson DO; Ashley Chávez Pattern Drafter So just an FYI: we offered her appointment today at 3 pm but she turned it down, and said she would keep scheduled appt. el ephone Encounter - Ashley Chávez Pattern Drafter - 09/19/2019 10:38 AM PST----- Mess age [...] she needs to be seen by a vat packer. I have asked Lizeth to call her [...] help her pulse? Please advise. Thank you! [facility] umented in this encounter Plan of Treatment Not on filedocumented as of this encounter Visit Diagnoses Not on filedocumented in this encounter"
--- OUTSIDE RECORDS SUMMARY | ~2020-07-01 | XMS | Encounter Summary ---
Demographics + + + | Address | [address] [facility] | | | [place] [address] | + + + | Home Phone [...] [place] | | | | | [address] | | + + + + + Care Team Providers + +------+ + | Care Bench Tool Maker Name | Role | Phone | + +------+ + PCP | Unavailable | + +------+ + Encounter Details +--------+ + + + + | Date | Type | Department | Care Team | Description | +--------+ + + + + | 10/29/ | Hospital | [facility] | | | | 1994 | Encounter | MED CTR LABORATORY | | | | | | [address] | | | | | | [place] | | | | | | [address] | | | | | | [phone] | | | +--------+ + + + [...]
--- OUTSIDE RECORDS SUMMARY | ~2020-07-01 | XMS | Encounter Summary ---
Demographics + + + | Address | [address] [facility] | | | [place] [address] | + + + | Home Phone [...] [place] | | | | | [address] | | + + + + + Care Team Providers + +------+ + | Care Foundry Manager Name | Role | Phone | [...] + | 02/27/ | Telephone | [facility] | Katharine Cardona PA-C | Appointment (New | | 2014 | | MEDICINE [address] | Patient) | | | | [address], | [place] [address] | | | | | [place] [address] | [phone] | | | | | [phone] | | | +--------+ + + + [...] patients. Those patients are re ferred to [facility]. Cindy stated that would be [...]
--- OUTSIDE RECORDS SUMMARY | ~2020-07-01 | XMS | Encounter Summary ---
Demographics + + + | Address | [address] [facility] | | | [place] [address] | + + + | Home Phone [...] [place] | | | | | [address] | | + + + + + Care Team Providers + +------+ + | Care Motocross Racer Name | Role | Phone | + +------+ + | Basim Bolanos MD | PCP | | + +------+ + Encounter Details +--------+ + + + + | Date | Type | Department | Care Team | Description | +--------+ + + + + | 04/18/ | Abstract | [facility] [place] | [facility], | | | 2012 | | GASTROENTEROLOGY | [address] | | | | | [address] | [address] | | | | | [address] [place], [place] | [place], [place] | | | | | [address] | [address] | | | | | [phone] | | | +--------+ + + + [...]
--- OUTSIDE RECORDS SUMMARY | ~2020-07-01 | XMS | Encounter Summary ---
Demographics + + + | Address | [address] [address] [facility] | | | [place] [address] | + + + | Home Phone [...] [place] | | | | | [address] | | + + + + + Care Team Providers + +------+ + | Care Director Of Physical Therapy Name | Role | Phone | + [...] + + | 02/05/ | Telephone | [facility] | Ashley Chávez | Other (Patient | | 2020 | | CARDIOLOGY [place] | Pollo, Dredge Mechanic | ) | | | | [address] | | | | | | [place] | | | | | | [address] | | | | | | [phone] | | | +--------+ + + + [...] encounter Miscellaneous Notes Telephone Encounter - BrittDora, ELECTRON BEAM MACHINE WELDER SETTER - 02/07/2020 3:12 PM PDTI called her [...] me nex t week . elephone Enco irma - Ashley Chávez, Dredge Mechanic - 02/06/2020 2:53 PM PDTPatient states that [...] advise. Thank you! (sent to Dora Mendez) BRODY:MANGO. doc umented in this encounter Plan of Treatment Not on filedocumented as of this encounter Visit Diagnoses Not on filedocumented in this encounter
--- OUTSIDE RECORDS SUMMARY | ~2020-07-01 | XMS | Clinical Summary ---
Demographics + + + | Address | [address] [facility] | | | [place] [address] | + + + | Home Phone [...] [place] | | | | | [address] | | + + + + + Care Team Providers + +------+ + | Care Slip Mixer Name | Role | Phone | + +------+ + PCP | Unavailable | + +------+ + Source Comments EDWARD is fully live on both [facility] Ambulatory and [facility] InPatient.[facility] Allergies Not on File Medications Not [...] + +--------+ | MEDICARE | MEDICA | [id number] | 02/22/20 | [phone] | [address] | Medica | | | RE A & | | 15-Pre | 1 | [address] | re | | | B | | sent | | [place] | | | | | | | | [address] | | + +--------+ +--------+ + +--------+ + +--------+ +--------+ + + | Guarantor Name | Accoun | Relation to | Date | Phone | Billing Address | | | t Type | Patient | of | | | | | | | | | | + +--------+ +--------+ + + | CINDY ARNDT | Person | Self | [birth year] | [address] | | | al/Fam | | 1955 | [phone] | [address] [place] | | | devonte | | | 5 (Home) | [address] | + +--------+ +--------+ + +"
--- OUTSIDE RECORDS SUMMARY | ~2020-07-01 | XMS | Encounter Summary ---
Demographics + + + | Address | [address] [facility] | | | [place] [address] | + + + | Home Phone | | + + + | Preferred Language | Unknown | + + + | Marital Status | Single | + + + | Zoroastrianism Affiliation | Unknown | + + + | Race | White | + + + | Ethnic Group | Not or | + + + Author + + + | Author | [facility] | + + + | Organization | [facility] | + + + | Address | Unknown | + + + | Phone | Unavailable | + + + Support + + + + + | Name | Relationship | Address | Phone | + + + + + | Kelsy Bautista | ECON | [address] | | | | | [place] | | | | | [address] | | + + + + + Care Team Providers + +------+ + | Care Stacker And Sorter Operator Name | Role | Phone | [...] [address] | | | | | | [place], [place] | | | | | | [address] | | | +--------+ + + + [...]
--- OUTSIDE RECORDS SUMMARY | ~2020-07-01 | XMS | Encounter Summary ---
Demographics + + + | Address | [address] [facility] | | | [place] [address] | + + + | Home Phone [...] [place] | | | | | [address] | | + + + + + Care Team Providers + +------+ + | Care Graphite Disk Assembler Name | Role | Phone | [...] [place] | | | | | | [address] | | | | | | [phone] | | | +--------+ + + + [...]
--- OUTSIDE RECORDS SUMMARY | ~2020-07-01 | XMS | Encounter Summary ---
Demographics + + + | Address | [address] [facility] [facility] [address] [facility] | | | [place] [address] | + + + | Home Phone [...] [place] | | | | | [address] | | + + + + + Care Team Providers + +------+ + | Care Greenhouse Assistant Name | Role | Phone | [...] + + | 06/05/ | Telephone | [facility] | Dora De La Torre | Cardiology | | 2020 | | CARDIOLOGY [place] | CAROLINE Mendez [address] | Appointment | | | | [address] | [address] | | | | | [address] | [place] [address] | | | | | [place] | [phone] | | | | | [address] | | | | | | [phone] | | | +--------+ + + + [...] encounter Miscellaneous Notes Telephone Encounter - BrittDora, GAS METER REPAIRER - 06/05/2020 1:08 PM MELANIE Cindy called kristin garcia and notified my manager medical that she had thrown up all over [...] 1 of the few prov iders in [place] currently. Dr. Richter is in agreement with this plan, and we also communicated it to Cindy, so she knows that Dr. Richter will continue to monitor her on twice weekly basis documented in this encounter Plan of Treatment Not on filedocumented as of this encounter Visit Diagnoses Not on filedocumented in this encounter"
--- OUTSIDE RECORDS SUMMARY | ~2020-07-01 | XMS | Encounter Summary ---
Demographics + + + | Address | [address] [facility] | | | [place] [address] | + + + | Home Phone [...] [place] | | | | | [address] | | + + + + + Care Team Providers + +------+ + | Care Planer Offbearer Name | Role | Phone | + +------+ + PCP | Unavailable | + +------+ + Encounter Details +--------+ + + + + | Date | Type | Department | Care Team | Description | +--------+ + + + + | 05/29/ | Hospital | [facility] | | | | 1991 | Encounter | MED CTR LABORATORY | | | | | | [address] | | | | | | [place] | | | | | | [address] | | | | | | [phone] | | | +--------+ + + + [...]
--- OUTSIDE RECORDS SUMMARY | ~2020-07-01 | XMS | Encounter Summary ---
Demographics + + + | Address | [address] [facility] | | | [place] [address] | + + + | Home Phone [...] [place] | | | | | [address] | | + + + + + Care Team Providers + +------+ + | Care Coil Machine Operator Name | Role | Phone [...] | Frandy Simons DO | [address] | | | | | of skin | [address] | [place], | | | | | sensation | [address] | [place] | | | | | Arthrodesis | [place] | [address] | | | | | status Left | [address] | Phone: | | | | | leg | Phone: | [phone] | | | | | weakness | [phone] | Fax: | | | | | Procedures | Fax: | [phone] | | | | | MRI Lumbar | [phone] | | | | | | Spine [...] [address] | [address] [place], [place] | | | | | [place], [place] | [address] | | | | | [address] | | | | | | [phone] | | | +--------+ + + + [...] scheduled cindy for her MRI here at [facility] on 08/19. SHAYNE ARAGON elephone [...] the round structure with high T1 and M2sprxdr in the right L3 vertebral | | [...] + | MISCELLANEOUS LAB | | | [phone] | + +---------+ + + | MISCELANIOUS LAB | | | [phone] | + +---------+ + + documented in [...]
--- OUTSIDE RECORDS SUMMARY | ~2020-07-01 | XMS | Encounter Summary ---
Demographics + + + | Address | [address] [facility] | | | [place] [address] | + + + | Home Phone [...] [place], [place] | | | | | [address] | | + + + + + Care Team Providers + +------+ + | Care Tube Depatcher Name | Role | Phone | + [...] | | | | | | [address] [facility] | | | | | | [place], [place] | | | | | | [address] | | | | | | [phone] | | | +--------+ + + + [...]
--- OUTSIDE RECORDS SUMMARY | ~2020-07-01 | XMS | Encounter Summary ---
Demographics + + + | Address | [address] [facility] [address] | | | [place] [address] | + + + | Home Phone [...] [place] | | | | | [address] | | + + + + + Care Team Providers + +------+ + | Care Locomotive Firer/Fireman Name | Role | Phone | [...] | Services | ogy | Epigastric | [facility], | Tyrese Shelley MD | | | Required | | abdominal | [place], | [address], | | | | | pain GERD | PIPE WRAPPING MACHINE OPERATOR [address] | [address] | | | | | (gastroesoph | [address] | [place], | | | | | ageal reflux | [address] | [place] [address] | | | | | disease) | [place], | Phone: | | | | | Fatty liver | [place] [address] | [phone] | | | | | DM | Phone: | Fax: | | | | | (diabetes | [phone] | [phone] | | | | | mellitus) | Fax: | | | | | | (HCC) | [phone] | | +--------+ + + + + + Reason for Visit + + + | Reason | Comments | + + + | Gastroesophageal | epigastric pain | | Reflux | | + + + Encounter Details +--------+---------+ + + + | Date | Type | Department | Care Team | Description | +--------+---------+ + + + | 03/06/ | Office | [facility] | [facility], | Epigastric abdominal | | 2012 | Visit | GASTROENTEROLOGY | FORTUNATO Thomas [address] | pain (Primary Dx); | | | | [address] | [address] | GERD | | | | [address] [place], [place] | [place] | (gastroesophageal | | | | [address] | [address] | reflux disease); | | | | [phone] | | Fatty liver; DM | | [...] by Dr. Saravanan Tsai, in [facility]. Colonoscopy was done 05/[address] Hamlin in [facility]. Allergies Allergen Reactions Demerol Duloxetine Erythromycin Fluoxetine [...] encounter Miscellaneous Notes Miscellaneous - ONBASE SCAN [facility] - 03/06/2013 12:00 AM PDT iscellaneous - ONBASE SCAN [facility] - 03/06/2013 12:00 AM PDTEle ctronically signed by Mariah Schulte at 04/09/2013 9:48 AM PDTMiscellaneous - ONBASE SCAN [facility] T - 03/06/2013 12:00 AM PDT [...]
--- OUTSIDE RECORDS SUMMARY | ~2020-07-01 | XMS | Encounter Summary ---
Demographics + + + | Address | [address] [facility] | | | [place] [address] | + + + | Home Phone [...] [place], [place] | | | | | [address] | | + + + + + Care Team Providers + +------+ + | Care Plant Utilities Engineer Name | Role | Phone | + +------+ + PCP | Unavailable | + +------+ + Encounter Details +--------+ + + + + | Date | Type | Department | Care Team | Description | +--------+ + + + + | 07/17/ | Hospital | [facility] | | | | 1997 - | Encounter | MED CTR GENERIC PSY | | | | | | CONV DEPT [address] | | | | 07/25/ | | [address] [place], | | | | 1997 | | [place] [address] | | | | | | [phone] | | | +--------+ + + + [...]
--- OUTSIDE RECORDS SUMMARY | ~2020-07-01 | XMS | Encounter Summary ---
Demographics + + + | Address | [address] [facility] [address] | | | [place] [address] | + + + | Home Phone [...] [place] | | | | | [address] | | + + + + + Care Team Providers + +------+ + | Care Choke Reamer Name | Role | Phone | [...] | 05/13/ | Telephone | [facility] | Frandy Teresa, | Other | | 2013 | | NEUROSURGERY [address] | DO [address] | | | | | [address] | [address] [place], [place] | | | | | [place], [place] | [id number] | | | | | [address] | | | | | | [phone] | | | +--------+ + + + [...]
--- OUTSIDE RECORDS SUMMARY | ~2020-07-01 | XMS | Encounter Summary ---
Demographics + + + | Address | [address] [facility] | | | [place] [address] | + + + | Home Phone [...] [place] | | | | | [address] | | + + + + + Care Team Providers + +------+ + | Care Bartacker Name | Role | Phone | + +------+ + PCP | Unavailable | + +------+ + Encounter Details +--------+ + + + + | Date | Type | Department | Care Team | Description | +--------+ + + + + | 09/23/ | Hospital | [facility] | | | | 1994 | Encounter | MED CTR LABORATORY | | | | | | [address] | | | | | | [place] | | | | | | [address] | | | | | | [phone] | | | +--------+ + + + [...]
--- OUTSIDE RECORDS SUMMARY | ~2020-07-01 | XMS | Encounter Summary ---
Demographics + + + | Address | [address] [facility] | | | [place] [address] | + + + | Home Phone [...] [place], [place] | | | | | [address] | | + + + + + Care Team Providers + +------+ + | Care Measurement Superintendent Name | Role | Phone | + +------+ + PCP | Unavailable | + +------+ + Encounter Details +--------+ + + + + | Date | Type | Department | Care Team | Description | +--------+ + + + + | 04/01/ | Hospital | [facility] | | | | 1998 | Encounter | MED CTR XRAY [address] | | | | | | [address] | | | | | | [place] [address] | | | | | | [phone] | | | +--------+ + + + [...]
--- OUTSIDE RECORDS SUMMARY | ~2020-07-01 | XMS | Encounter Summary ---
Demographics + + + | Address | [address] [facility] | | | [place] [address] | + + + | Home Phone [...] [place] | | | | | [address] | | + + + + + Care Team Providers + +------+ + | Care Women Designer Name | Role | Phone | [...] + + | 08/14/ | Telephone | [facility] | Ashley Chávez | Other (Patient was | | 2018 | | CARDIOLOGY [place] Abad, Hotel Recreational Facilities Manager | anxious about urgent | | | | [address] | | reports. ) | | | | [place] | | | | | | [address] | | | | | | [phone] | | | +--------+ + + + [...] Miscellaneous Notes Telephone Encounter - Ashley Chávez, Hotel Recreational Facilities Manager - 08/14/2019 9:16 AM Seferino foster called [...] for the time being. Patient stated understanding. BRODY:CABLE ASSEMBLER-AAMA. [facility] umented in this encounter Plan of Treatment Not on filedocumented as of this encounter Visit Diagnoses Not on filedocumented in this encounter"
--- OUTSIDE RECORDS SUMMARY | ~2020-07-01 | XMS | Encounter Summary ---
Demographics + + + | Address | [address] [facility] | | | [place] [address] | + + + | Home Phone [...] [place] | | | | | [address] | | + + + + + Care Team Providers + +------+ + | Care Team Foreman Name | Role | Phone | [...] | 08/20/ | Documentati | [facility] | Katharine Moncada, | Other (urgent | | 2019 | on | CARDIOLOGY [place] | Technologist | report) | | | | [address] | | | | | | [place] | | | | | | [address] | | | | | | [phone] | | | +--------+ + + + [...]
--- OUTSIDE RECORDS SUMMARY | ~2020-07-01 | XMS | Encounter Summary ---
Demographics + + + | Address | [address] [facility] | | | [place] [address] | + + + | Home Phone [...] [place] | | | | | [address] | | + + + + + Care Team Providers + +------+ + | Care Pot Puncher Name | Role | Phone | + [...] + + | 08/30/ | Telephone | [facility] | Ashley Chávez | Other (Patient wants | | 2018 | | CARDIOLOGY [place] Abad, Model Maker Apprentice | to take monitor | | | | [address] | | off. ) | | | | [address] | | | | | | [place] | | | | | | [address] | | | | | | [phone] | | | +--------+ + + + [...] Miscellaneous Notes Telephone Encounter - Ashley Chávez, Model Maker Apprentice - 08/30/2019 9:19 AM Rory foster called because she wanted to know if she could take her monitor off. I spoke with Dr Petreson, and she says that patient is ok to take the monitor off. She has worn the monitor for 3 weeks now. Call made to patient to advise of Dr. Peterson's notes. Patient was thankful for the news. Patient stated understanding JKASSIE:SHORT FILLER BUNCH MACHINE OPERATOR-AAMA. c umented in this encounter Plan of Treatment Not on filedocumented as of this encounter Visit Diagnoses Not on filedocumented in this encounter"
--- OUTSIDE RECORDS SUMMARY | ~2020-07-01 | XMS | Encounter Summary ---
Demographics + + + | Address | [address] [facility] | | | [place] [address] | + + + | Home Phone [...] [place] | | | | | [address] | | + + + + + Care Team Providers + +------+ + | Care Porcelain Waxer Name | Role | Phone | + [...] | 06/26/ | Telephone | [facility] | Frandy Teresa, | Other | | 2013 | | NEUROSURGERY [address] | DO [address] | | | | | [address] | [address] [place], [place] | | | | | [place], [place] | [id number] | | | | | [address] | | | | | | [phone] | | | +--------+ + + + [...]
--- OUTSIDE RECORDS SUMMARY | ~2020-07-01 | XMS | Encounter Summary ---
Demographics + + + | Address | [address] [facility] [address] | | | [place] [address] | + + + | Home Phone [...] [place] | | | | | [address] | | + + + + + Care Team Providers + +------+ + | Care Wet Process Assistant Head Miller Name | Role | Phone | [...] | 09/26/ | Refill | [facility] | Frandy Teresa, | Medication Refill | | 2013 | | NEUROSURGERY [address] | DO [address] | | | | | [address] [facility] [address] | [address] [place], [place] | | | | | [place], [place] | [id number] | | | | | [address] | | | | | | [phone] | | | +--------+--------+ + + + [...] will come today. rx refill up at [facility] elephone Encou nter - Megan Schreiber [...]
--- OUTSIDE RECORDS SUMMARY | ~2020-07-01 | XMS | Encounter Summary ---
Demographics + + + | Address | [address] [facility] | | | [place] [address] | + + + | Home Phone [...] [place] | | | | | [address] | | + + + + + Care Team Providers + +------+ + | Care Renovator Machine Operator Name | Role | Phone | + +------+ + | Natalee Andersen NP | PCP | | + +------+ + Encounter Details +--------+ + + + + | Date | Type | Department | Care Team | Description | +--------+ + + + + | 06/25/ | Hospital | [facility] | Latricia Feliciano | | | 2014 | Encounter | MED CTR ACUTE | D, PT [address] | | | | | PHYSICAL THERAPY | [place]ALIE [place] | | | | | [address] [place] | [address] | | | | | [place] [address] | | | | | | [phone] | | | +--------+ + + + [...] + + + +---------+ + + | Charlemont-3 Fatty | Take 1,000 mg by | [...]
--- OUTSIDE RECORDS SUMMARY | ~2020-07-01 | XMS | Encounter Summary ---
Demographics + + + | Address | [address] [facility] | | | [place] [address] | + + + | Home Phone [...] [place] | | | | | [address] | | + + + + + Care Team Providers + +------+ + | Care Timber Treating Tank Operator Name | Role | Phone | [...] | | Required | | branch | [facility] [address] | [address] | | | | | block | [place] | [facility] | | | | | Paroxysmal | [address] | [address] | | | | | A-fib ([facility]) | [place], [place] | [address] | | | | | | [address] | [place], [place] | | | | | Schizoaffect | Phone: | [phone] Phone: | | | | | chris | [phone] | [phone] | | | | | disorder, | Fax: | Fax: | | | | | bipolar type | [phone] | [phone] | | | | | (HCC) | [...] + + | 04/24/ | Office | [facility] | Dora De La Torre | Left bundle branch | | 2020 | Visit | CARDIOLOGY [place] | [address] | block (Primary Dx); | | | | [address] | [address] | Paroxysmal A-fib | | | | [address] | [place] [address] | ([facility]); Mild | | | | [place], [place] | [phone] | hyperlipidemia; | | | | [address] | | Benign essential | | | | [phone] | | HTN; Poorly | | | | | | controlled type 2 | | | | | | diabetes mellitus | | | | | | ([facility]); Syncope, | | | | | | [...] | | | | | | type ([facility]); Rapid | | | | | | [...] have referred you to Dr. Osuna at [facility] , call [phone] for an appo intment next week as [...] patient of , who is her primary breaker oiler, and last seen by her on 08/2020. [...] also resol shelly with weight loss Her [id number] VASC score is 4 (stroke, HTN, gender) [...] She has previously seen Dr. Garland in [place], and different sleep provider in [facility] when lived over there. She previously had [...] After her syncopal episode she had notified [facility]ology, and Dr. Marquez, who was on-call [...] PCP, or get a referral to an mash filter operator to get her blood sugars better controlled, [...] thirst or hunger. Psychiatric/Behavioral: Bipolar/Schizophrenia. Tx'd by AF83 Vaccines: Current on flu vaccine: 2019 Current on pneumonia vaccine:PPSV 23 05/29/2013 Habits/Social : Denies history of smoking. Denies EtOH use. Denies recreational or illici t drug use. Exercises sporadically. Lives in [place] . Outpatient Medications Prior to Visit Medication Sig Dispense Refill albuterol 90 mcg/puff inhaler Inhale 2 puffs into the lungs every 4 (four) hours as nee ded for Wheezing. amitriptyline (ELAVIL) 150 MG tablet Take 150 mg by mouth nightly . ARIPiprazole (ABILIFY) 10 mg tablet Take 10 mg by mouth nightly. Blood Glucose Monitoring Suppl (Verosee VERIO FLEX SYSTEM) w/Device KIT by Does [...] discomfort, [facility]. Resting EKG normal sinus rhythm, arrhythmias ventricular [...] nonspecific ST-T wave abnormality rate 82 bpm, ND 176 ms, QRS 80 ms, QTC 446 ms tracing personally reviewed by EK12/17/2019: Sinus tachycardia, nonspecific ST wave abnormalities, rate 105 bpm, ND 196 ms, QRS 74 ms, QTC 430 ms, tracing personally reviewed by me, and compared to EKG performed in February 2019, rate is less well-controlled EK01/10/2020 (metoprolol XL 50 mg twice daily. Normal sinus rhythm, new left bundle bran ch block Rate 74 bpm, ND 204 ms, QRS 138 ms, QTC 488 [...] bundle branch block. Ra te 105 bpm, ND 184 ms, QRS 144 ms, QTC 489 ms, tracing personally reviewed by me, and compar ed to EKG performed in December , rate is less well-controlled LABS Labs: 12/26/2018: ( [facility])CMP: Sodium 139, potassium 4.2, chloride 99, BUN 10, creatinine 0. 7, BNP 28. CBC: WBC 7.8, hemoglobin 14.3, hematocrit 42.7, platelets 214 Labs: 09/28/2019:( [facility]) CBC: WBC 7.8, hemoglobin 14.9, hematocrit 43.8, platelets 221. C MP: Sodium 132, potassium 4.2, chloride 95, AST 76, ALT 76, alk phos 134 Labs: 10/11/2019:( [facility]) CBC: WBC 6.7, RBC 4.97, hemoglobin 15.2, hematocrit 44.7, platel ets 200. CMP: Glucose 385, BUN 7, creatinine 0.62, GFR 97, sodium 131, potassium 4.1, chlor kelby 95, albumin 4.3, total bilirubin 0.6, AST 75, ALT 73, alk phos 144. Thyroid: TSH 4.27 Labs: 10/12/2020:( [facility]) CBC: WBC 7, RBC 4.93, hemoglobin 14.7, hematocrit 44.1, platele ts 186 normal UA CMP: Glucose 381, BUN 6, creatinine 0.63, GFR 95, sodium 133, potassium 3.8 , chloride 97, albumin 4.3, total bili 0.6, AST 62, ALT 75, alk phos 145 thyroid: TSH 3.07 Labs: 10/20/2019:( [facility]) CBC: WBC 7.1, RBC 4.93, hemoglobin 15.1, hematocrit 45.2, platel ets 204. CMP: Glucose 540, BUN 8, creatinine 0.81, GFR 71, sodium 131, potassium 4.1, chlor kelby 95, albumin 4.2, total bili 0.5, AST 54, ALT 63, alk phos 123, negative screen for all d rugs except tricyclics. Thyroid: TSH 3.39. Labs: 04/20/2020: ([facility]). CMP: Sodium 130, potassium 4.1, chloride [...] admission and overnight teleme try stay at [facility] for syncopal episode with extremely [...] report. I have referred her to the [facility] sleep disorders clinic for further evaluation and bernadine atment Her event monitor will be placed on May 29, and she assured me that she would wear it for the full 2 weeks, and I will follow-up with her about the results on June 26. Addendum: Cindy called today and notified my medical receptionist biller that she had thrown up al l [...] 1 of the few prov iders in [place] currently 1. Left bundle branch block 2. [...] continuity of care purp ose Preston BUCIO [facility] Cardiology 04/25/2020 Laurie vivar in this encounter [...] Expires: | | | | | A-fib ([facility]) | 04/24/2021 | | | | | [...] | | | | | | A-fib ([facility]) | | | | | | Schizoaffective | | | | | | disorder, bipolar | | | | | | type ([facility]) Rapid | | | | | | [...]
--- OUTSIDE RECORDS SUMMARY | ~2020-07-01 | XMS | Encounter Summary ---
Demographics + + + | Address | [address] [facility] | | | [place] [address] | + + + | Home Phone [...] [place] | | | | | [address] | | + + + + + Care Team Providers + +------+ + | Care Back Gray Cloth Washer Name | Role | Phone | [...] | | [address] | [place] [address] | | | | | [place] | [phone] | | | | | [address] | | | | | | [phone] | | | +--------+ + + + [...] Percocet prescription and faxed it to them ([facility]) this morning like I told them I would. Thank you for doing that, but it should not have been necessary. Telephone Encounter - Lincoln Cheema MD - 07/06/2014 8:59 PM PDTCalled regarding increased p ain. She was taking percocet. She was discharged to a [facility] on hydrocodone. I talked to the [...]
--- OUTSIDE RECORDS SUMMARY | ~2020-07-01 | XMS | Encounter Summary ---
Demographics + + + | Address | [address] [facility] | | | [place] [address] | + + + | Home Phone [...] [place], [place] | | | | | [address] | | + + + + + Care Team Providers + +------+ + | Care Conventional Mortgage Underwriter Name | Role | Phone | + +------+ + PCP | Unavailable | + +------+ + Encounter Details +--------+ + + + + | Date | Type | Department | Care Team | Description | +--------+ + + + + | 07/23/ | Hospital | [facility] | | | | 1992 - | Encounter | MED CTR GENERIC PSY | | | | | | CONV DEPT [address] | | | | 07/28/ | | [address], | | | | 1992 | | [place] [address] | | | | | | [phone] | | | +--------+ + + + [...]
--- OUTSIDE RECORDS SUMMARY | ~2020-07-01 | XMS | Encounter Summary ---
Demographics + + + | Address | [address] [facility] | | | [place] [address] | + + + | Home Phone [...] [place] | | | | | [address] | | + + + + + Care Team Providers + +------+ + | Care Director Global Intelligence Name | Role | Phone | + +------+ + PCP | Unavailable | + +------+ + Encounter Details +--------+ + + + + | Date | Type | Department | Care Team | Description | +--------+ + + + + | 01/06/ | Hospital | [facility] | | | | 1992 | Encounter | MED CTR LABORATORY | | | | | | [address] | | | | | | [place] | | | | | | [address] | | | | | | [phone] | | | +--------+ + + + [...]
--- OUTSIDE RECORDS SUMMARY | ~2020-07-01 | XMS | Encounter Summary ---
Demographics + + + | Address | [address] [facility] | | | [place] [address] | + + + | Home Phone [...] [place] | | | | | [address] | | + + + + + Care Team Providers + +------+ + | Care Delivery Room Supervisor Name | Role | Phone | [...] + + | 10/23/ | Telephone | [facility] | Ashley Chávez | Other (Patient | | 2019 | | CARDIOLOGY [place] Abad, Solar Panel Technician | called about | | | | [address] | | metoprolol. ) | | | | [place] | | | | | | [address] | | | | | | [phone] | | | +--------+ + + + [...] Miscellaneous Notes Telephone Encounter - Ashley Chávez, Solar Panel Technician - 10/23/2019 10:49 AM Rory t called [...] back when I have her recommendations. JKASSIE:IRINA-AAMA. [facility] umented in this encounter Plan of Treatment Not on filedocumented as of this encounter Visit Diagnoses Not on filedocumented in this encounter"
--- OUTSIDE RECORDS SUMMARY | ~2020-07-01 | XMS | Encounter Summary ---
Demographics + + + | Address | [address] [facility] | | | [place] [address] | + + + | Home Phone [...] [place] | | | | | [address] | | + + + + + Care Team Providers + +------+ + | Care Fireworks Assembly Supervisor Name | Role | Phone | + +------+ + PCP | Unavailable | + +------+ + Encounter Details +--------+ + + + + | Date | Type | Department | Care Team | Description | +--------+ + + + + | 05/25/ | Hospital | [facility] | | | | 1991 | Encounter | MED CTR LABORATORY | | | | | | [address] | | | | | | [place] | | | | | | [address] | | | | | | [phone] | | | +--------+ + + + [...]
--- OUTSIDE RECORDS SUMMARY | ~2020-07-01 | XMS | Encounter Summary ---
Demographics + + + | Address | [address] [facility] | | | [place] [address] | + + + | Home Phone [...] [place] | | | | | [address] | | + + + + + Care Team Providers + +------+ + | Care Client Services Analyst Name | Role | Phone | + +------+ + | Adriano Patrick MD | PCP | | + +------+ + Encounter Details +--------+ + + + + | Date | Type | Department | Care Team | Description | +--------+ + + + + | 05/11/ | Documentati | [facility] | Russell Alfaro PA | | | 2016 | on | SLEEP DISORDER [address] | [address] | | | | | [address] [place] | [place], [place] | | | | | [place] [address] | [address] | | | | | [phone] | | | +--------+ + + + [...]
--- OUTSIDE RECORDS SUMMARY | ~2020-07-01 | XMS | Encounter Summary ---
Demographics + + + | Address | [address] [facility] | | | [place] [address] | + + + | Home Phone [...] [place] | | | | | [address] | | + + + + + Care Team Providers + +------+ + | Care Ibm Mainframe Systems Programmer Name | Role | Phone | [...] + + | 04/30/ | Office | [facility] | Russell Alfaro PA | ROGERS on CPAP (Primary | | 2015 | Visit | SLEEP DISORDER [address] | [address] | Dx) | | | | [address] [place] | [place] | | | | | [place] [address] | [id number] | | | | | [phone] | | | +--------+---------+ + + + [...] Insomnia Severity Index Insomnia Severity Index 13 [place] Sleepiness Scale Sitting and reading 3 Watching [...] appro priate paperwork. Thirty minutes were spent enqt-yd-lrne, with the majority of time spent i [...]
--- OUTSIDE RECORDS SUMMARY | ~2020-07-01 | XMS | Encounter Summary ---
Demographics + + + | Address | [address] [facility] | | | [place] [address] | + + + | Home Phone [...] [place] | | | | | [address] | | + + + + + Care Team Providers + +------+ + | Care Whale Fisherman Name | Role | Phone | [...] + + | 07/24/ | Telephone | [facility] | Ashley Chávez | Other (Patient is | | 2018 | | CARDIOLOGY [place] Aabd, Bariatric Physician | worried about paying | | | | [address] | | for monitor. ) | | | | [place] | | | | | | [address] | | | | | | [phone] | | | +--------+ + + + [...] Miscellaneous Notes Telephone Encounter - Ashley Chávez, Bariatric Physician - 07/24/2019 11:13 AM MELANIEPatigutierrez t says [...] gals to see what can be done. JKASSIE:REPORT SPECIALIST-AAMA. doc umented in this encounter Plan of Treatment Not on filedocumented as of this encounter Visit Diagnoses Not on filedocumented in this encounter"
--- OUTSIDE RECORDS SUMMARY | ~2020-07-01 | XMS | Encounter Summary ---
Demographics + + + | Address | [address] [facility] [address] [facility] | | | [place] [address] | + + + | Home Phone [...] [place] | | | | | [address] | | + + + + + Care Team Providers + +------+ + | Care Desktop Administrator Name | Role | Phone | [...] + | 02/01/ | Telephone | [facility] | Frandy Teresa, | Imaging Only | | 2018 | | NEUROSURGERY [address] | DO [address] | | | | | [address] | [address] [place], [place] | | | | | [place], [place] | [id number] | | | | | [address] | | | | | | [phone] | | | +--------+ + + + [...]
--- OUTSIDE RECORDS SUMMARY | ~2020-07-01 | XMS | Encounter Summary ---
Demographics + + + | Address | [address] [facility] [address] [facility] | | | [place] [address] | + + + | Home Phone [...] [place] | | | | | [address] | | + + + + + Care Team Providers + +------+ + | Care Flagsetter Name | Role | Phone | + [...] | [address] | [place], [place] | Radiculopathy of | | | | [place], [place] | [address] | leg; Lumbar spine | | | | [address] | | instability; Lumbar | | | | [phone] | | spondylosis; | | | | [...] [address] [facility] [address] [place], [place] [address] FAX: NEUROSURGERY HISTORY AND PHYSICAL EXAMINATION CHIEF [...] Take 15 mg by mouth nightl y. [place]-3 Fatty Acids (FISH OIL CONCENTRATE) 1000 MG [...] has no apparent deficits with short or metal furniture repairer memory. CRANIAL NERVES: II: Acuity is intact. [...] Intrinsics 5 5 Ulnar Intrinsics 5 5 Carpet Repairer Strength 5 5 Hip Flexion 5 4* [...]
--- OUTSIDE RECORDS SUMMARY | ~2020-07-01 | XMS | Encounter Summary ---
Demographics + + + | Address | [address] [facility] | | | [place] [address] | + + + | Home Phone [...] [place] | | | | | [address] | | + + + + + Care Team Providers + +------+ + | Care Player Development Manager Name | Role | Phone [...] | | | | | [address] [place], | | | | | | [place] [address] | | | | | | [phone] | | | | | | | [...] | | | | | Case seen by:Jasmeet | | | | | | Elkadi, M.D. | | | | | | /Neuropathology | | | | | | FellowSondra Ahmadi, | | | | | | M.Samuel, Ph.D. / | | | | | | Neuropathologist02/24/15 | | | | | | Clinical | | | | | | History:The patient is a | | | | | | 59 year old woman | | | | | | admitted on February 01 to | | | | | | [facility] | | | | | | [place] with a | | | | | [...] [facility] | | | | | [facility] | | | | | | Laboratory, [place], | | | | | | [place], delivered | | | | | | [...] by | | | | | | zdqkleqzMuj-Zky-V: | | | | | | Increased [...] istryMHC-1: | | | | | | FtalbnlvVA03 stain | | | | | | [...] | | | | cs determined by [place] | | | | | | laboratories. [...] | + + + + + | [facility] | [address] | [place] [address] | | | PATHOLOGY | [address] | | | + + + + + documented in this encounter Visit Diagnoses Not on filedocumented in this encounter
--- OUTSIDE RECORDS SUMMARY | ~2020-07-01 | XMS | Encounter Summary ---
Demographics + + + | Address | [address] [facility] [address] [facility] | | | [place] [address] | + + + | Home Phone [...] [place] | | | | | [address] | | + + + + + Care Team Providers + +------+ + | Care Natural Gas Inspector Name | Role | Phone | [...] + | 03/03/ | Telephone | [facility] [place] | Baudilio Newman | Other (Results) | | 2014 | | NEUROLOGY LAURIE Abad MD Need updated | | | | | [address] [facility], | address | | | | | [address] [place] | | | | | | [place] [address] | | | | | | [phone] | | | +--------+ + + + [...] stroke work up she had done at [facility] was quite thorough and she did not [...]
--- OUTSIDE RECORDS SUMMARY | ~2020-07-01 | XMS | Encounter Summary ---
Demographics + + + | Address | [address] [facility] [address] [facility] | | | [place] [address] | + + + | Home Phone [...] [place] | | | | | [address] | | + + + + + [...] + | 07/01/ | Telephone | [facility] | Frandy Teresa, | Other (Surgery ) | | 2013 | | NEUROSURGERY [address] | DO [address] | | | | | [address] | [address] [place], [place] | | | | | [place], [place] | [id number] | | | | | [address] | | | | | | [phone] | | | +--------+ + + + [...]
--- OUTSIDE RECORDS SUMMARY | ~2020-07-01 | XMS | Encounter Summary ---
Demographics + + + | Address | [address] [facility] [address] [facility] | | | [place] [address] | + + + | Home Phone [...] + | Araceli Sibley | ECON | [place] | | | | | [address] | | + + + + + Care Team Providers + +------+ + | Care Plastic Jig And Fixture Builder Name | Role | Phone | + [...] + + | 09/10/ | Documentati | [facility] | Katharine Moncada, | Other (urgent | | 2019 | on | CARDIOLOGY GENESIS | Technologist | report) | | | | [address] | | | | | | [place] | | | | | | [address] | | | | | | [phone] | | | +--------+ + + + [...]
--- OUTSIDE RECORDS SUMMARY | ~2020-07-01 | XMS | Encounter Summary ---
Demographics + + + | Address | [address] [facility] [address] [facility] | | | [place] [address] | + + + | Home Phone [...] [place] | | | | | [address] | | + + + + + Care Team Providers + +------+ + | Care Advanced Nursing Professor Name | Role | Phone [...] | | | | | [address] | [place], [place] | | | | | | Complete | [address] | | | | | | | Phone: | | | | | | | [phone] | | | | | | | Fax: | | | | | | | [phone] | | + +--------+ + + + + Reason for Visit + + + | Reason | Comments | + + + | Follow-up | 6 month | + + + Encounter Details +--------+---------+ + + + | Date | Type | Department | Care Team | Description | +--------+---------+ + + + | 04/03/ | Office | [facility] | Desiree Peterson DO | Left bundle branch | | 2020 | Visit | CARDIOLOGY [place] | [address] | block (Primary Dx); | | | | [address] | [place] [address] [place], [place] | Benign essential | | | | [address] | [address] | HTN; New onset left | | | | [place], [place] | | bundle branch block | | | | [address] | | (LBBB); Obesity, | | | | [phone] | | Class III, BMI | | [...] Peterson DO - 04/03/2020 10:20 AM PDT [facility] Cardiology Cardiology Follow Up Note Reason [...] rtake in exercise. She recently got a [employer] and has been walking him more regularly. 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 Blood Glucose Monitoring Suppl (GivkwikIO FLEX SYSTEM) w/Device KIT by Does not ap ply route. budesonide-formoterol (SYMBICORT) 160-4.5 MCG/ACT inhaler Inhale 2 puffs into the lungs 2 (two) times daily. Calcium Carbonate Antacid 1000 MG tablet Take 1,000 mg by mouth 3 (three) times daily. Cholecalciferol (VITAMIN D3) 80859 units CAPS Take by mouth once a [...] ALT 76, alkaline phosphatase 134. Labs: 10/20/2019:( [facility]) CBC: WBC 7.1, RBC [...]
--- OUTSIDE RECORDS SUMMARY | ~2020-07-01 | XMS | Encounter Summary ---
Demographics + + + | Address | [address] [facility] [address] [facility] | | | [place] [address] | + + + | Home Phone [...] [place], [place] | | | | | [address] | | + + + + + Care Team Providers + +------+ + | Care Tile Presser Name | Role | Phone | + +------+ + PCP | Unavailable | + +------+ + Encounter Details +--------+ + + + + | Date | Type | Department | Care Team | Description | +--------+ + + + + | 06/30/ | Hospital | [facility] | | | | 1999 - | Encounter | MED CTR GENERIC PSY | | | | | | CONV DEPT [address] | | | | 07/05/ | | [place], | | | | 1999 | | [place] [address] | | | | | | [phone] | | | +--------+ + + + [...]
--- OUTSIDE RECORDS SUMMARY | ~2020-07-01 | XMS | Encounter Summary ---
Demographics + + + | Address | [address] [facility] | | | [place] [address] | + + + | Home Phone [...] [place] | | | | | [address] | | + + + + + Care Team Providers + +------+ + | Care Load Out Supervisor Name | Role | Phone | [...] + + | 03/06/ | Office | [facility] | Deon Gonzales | ROGERS (obstructive | | 2012 | Visit | SLEEP DISORDER [address] | MD [address] | sleep apnea) | | | | [address] [place] | [address] [place] | (Primary Dx); | | | | [place] [address] | [place] [address] | Sleepiness | | | | [phone] | [phone] | | | | | | | [...] differen t from the original. 03/06/13 1000 [place] Sleepiness Scale Sitting and reading 3 Watching [...] by mouth Daily., Disp: , Rfl: ; [place]-3 Fatty Acids (FISH OIL CONCENTRATE) 1000 [...] th is encounter Miscellaneous Notes M[facility] - 03/06/2013 12:00 AM PDT iscellaneous - [facility] - 03/06/2013 12:00 AM PDTEle ctronically signed [...]
--- OUTSIDE RECORDS SUMMARY | ~2020-07-01 | XMS | Encounter Summary ---
Demographics + + + | Address | [address] [facility] [address] [facility] | | | [place] [address] | + + + | Home Phone [...] [place] | | | | | [address] | | + + + + + [...] | 12/03/ | Refill | [facility] | Frandy Teresa, | Medication Refill | | 2014 | | NEUROSURGERY [address] | DO [address] | | | | | [address] [facility] [address] | [address] [place], [place] | | | | | [place], [place] | [id number] | | | | | [address] | | | | | | [phone] | | | +--------+--------+ + + + [...] Art Andersen NP Chart notes faxed to [phone] along with medication list. Sent request to update contac t information in [employer] To Kathy @ [facility] Support Team documented in this encounter Plan of Treatment Not on filedocumented as of this encounter Visit Diagnoses Not on filedocumented in this encounter"
--- OUTSIDE RECORDS SUMMARY | ~2020-07-01 | XMS | Encounter Summary ---
Demographics + + + | Address | [address] [facility] [address] | | | [place] [address] | + + + | Home Phone [...] [place] | | | | | [address] | | + + + + + Care Team Providers + +------+ + | Care Transfer Worker Name | Role | Phone | [...] + + | 08/08/ | Telephone | [facility] | Ashley Chávez | Other (Questions | | 2019 | | CARDIOLOGY GENESIS Abad, Sports Equipment Supervisor | about coverage. ) | | | | [address] | | | | | | [place] | | | | | | [address] | | | | | | [phone] | | | +--------+ + + + [...] Miscellaneous Notes Telephone Encounter - Ashley Chávez, Sports Equipment Supervisor - 08/08/2019 10:58 AM Seferino kristin called and wanted to know if her monitor needed to be AUTHORIZED. I asked Danelle and she said that because she had medicare part A and B, it does not need kayode or auth. I told this information to the patient, patient stated understanding. BRODY[facility] Plan of Treatment Not on filedocumented as of this encounter Visit Diagnoses Not on filedocumented in this encounter"
--- OUTSIDE RECORDS SUMMARY | ~2020-07-01 | XMS | Encounter Summary ---
Demographics + + + | Address | [address] [address] [facility] | | | [place] [address] | + + + | Home Phone [...] [place] | | | | | [address] | | + + + + + Care Team Providers + +------+ + | Care Media Coordinator Name | Role | Phone | + +------+ + | Basim Boalnos MD | PCP | | + +------+ + Encounter Details +--------+ + + + + | Date | Type | Department | Care Team | Description | +--------+ + + + + | 02/22/ | Abstract | [facility] [place] | [facility], | | | 2012 | | GASTROENTEROLOGY | FORTUN[place]O Thomas [address] | | | | | [address] | [address] | | | | | [address] [place], [place] | [place], [place] | | | | | [address] | [address] | | | | | [phone] | | | +--------+ + + + [...]
--- OUTSIDE RECORDS SUMMARY | ~2020-07-01 | XMS | Encounter Summary ---
Demographics + + + | Address | [address] [facility] [address] [facility] | | | [place] [address] | + + + | Home Phone [...] [place], [place] | | | | | [address] | | + + + + + Care Team Providers + +------+ + | Care Manager Route Name | Role | Phone | + [...] [address] | | | | | | [place], [place] | | | | | | [address] | | | | | | [phone] | | | +--------+ + + + [...]
--- OUTSIDE RECORDS SUMMARY | ~2020-07-01 | XMS | Encounter Summary ---
Demographics + + + | Address | [address] [facility] [address] [facility] | | | [place] [address] | + + + | Home Phone [...] [place], [place] | | | | | [address] | | + + + + + Care Team Providers + +------+ + | Care Dispensary Clerk Name | Role | Phone | + +------+ + PCP | Unavailable | + +------+ + Encounter Details +--------+ + + + + | Date | Type | Department | Care Team | Description | +--------+ + + + + | 01/25/ | Hospital | [facility] | | | | 2002 | Encounter | MED CTR XRAY [address] | | | | | | [place] | | | | | | [place] [address] | | | | | | [phone] | | | +--------+ + + + [...]
--- OUTSIDE RECORDS SUMMARY | ~2020-07-01 | XMS | Encounter Summary ---
Demographics + + + | Address | [address] [address] [facility] | | | [place] [address] | + + + | Home Phone [...] [place] | | | | | [address] | | + + + + + Care Team Providers + +------+ + | Care Shader And Toner Name | Role | Phone | + [...] + + | 05/01/ | Telephone | [facility] | Dora De La Torre | Medication Question | | 2020 | | CARDIOLOGY [place] | [address] | | | | | [address] | [address] | | | | | [address] | [place] [address] | | | | | [place] | [phone] | | | | | [address] | | | | | | [phone] | | | +--------+ + + + [...]
--- OUTSIDE RECORDS SUMMARY | ~2020-07-01 | XMS | Encounter Summary ---
Demographics + + + | Address | [address] [facility] [address] | | | [place] [address] | + + + | Home Phone [...] [place] | | | | | [address] | | + + + + + Care Team Providers + +------+ + | Care Fine Grade Operator Name | Role | Phone | [...] + + | 08/24/ | Documentati | [facility] | Katharine Moncada, | Other (urgent | | 2019 | on | CARDIOLOGY GENESIS | Technologist | report) | | | | [address] | | | | | | [place] | | | | | | [address] | | | | | | [phone] | | | +--------+ + + + [...]
--- OUTSIDE RECORDS SUMMARY | ~2020-07-01 | XMS | Encounter Summary ---
Demographics + + + | Address | [address] [facility] | | | [place] [address] | + + + | Home Phone [...] [place] | | | | | [address] | | + + + + + Care Team Providers + +------+ + | Care Hydraulic Press In Operator Name | Role | Phone | [...] | | | spondylolist | | [address] | | | | | hesis | | [place], | | | | | Spinal | | [place] [address] | | | | | stenosis, | | Phone: | | | | | lumbar | | [phone] | | | | | region, | | Fax: | | | | | without | | [phone] | | | | | neurogenic | [...] + + | 07/02/ | Hospital | [facility] | Frandy Teresa, | Degenerative disc | | 2013 - | Encounter | MED CTR SURGICAL | DO [address] | disease, lumbar | | | | [address] | [place] [address] | (Primary Dx); | | 07/05/ | | [place] [address] | [phone] | Diabetes mellitus | | 2013 | | [phone] | | ([facility]); Disturbance | | | | [...] might be different fro m the original. [facility] DISCHARGE SUMMARY PATIENT NAME: Cindy [...] discharge to SNF. DISPOSITION: SNF ([facility]) DISCHARGE MEDICATIONS Medications prior to admission [...] 15 mg by mouth nightl y. San Elizario-3 Fatty Acids (FISH OIL CONCENTRATE) 1000 MG [...] + + +---------+ + + | San Elizario-3 Fatty | Take 1,000 mg by | [...] Lynn PA-C - 07/04/2014 7:43 AM PDT [facility] PROGRESS NOTE Pt. Name/Age/: Cindy Arndt 58 y.o. 1955 Med. Record Number: [id number] Date of admission: 07/02/2014 Subjective: The patient [...] Home tomorrow with [facility]. D/c mari drain and riley cath today. D/c marketing pr intern. Patient Active Problem List Diagnosis LUMBAR DISC [...] PA-C - 07/03/2014 7:13 AM PDT . [facility] PROGRESS NOTE Pt. Name/Age/: Cindy Arndt 58 y.o. 1955 Med. Record Number: [id number] Date of admission: 07/02/2014 Subjective: The patient [...] Electronically signed by: Chris Nicole, 07/03/2014 7:13 [facility] oTon perez, KRIS - 07/03/2014 6:50 AM [...] signed by: Frandy Teresa DO, 07/02/2014 11:15 [facility] signed by Frandy Teresa DO at 06/2014 11:15 AM PDTFrandy Teresa DO - 07/02/2014 11:15 AM [id number], [address] [place] [address] FAX: NEUROSURGERY HISTORY AND PHYSICAL EXAMINATION CHIEF [...] Take 15 mg by mouth nigh tly. San Elizario-3 Fatty Acids (FISH OIL CONCENTRATE) 1000 MG [...] has no apparent deficits with short or half-way memory. CRANIAL NERVES: II: Acuity is intact. [...] Intrinsics 5 5 Ulnar Intrinsics 5 5 Finisher Tailor Apprentice Strength 5 5 Hip Flexion 5 4* [...] documented in this en counter Procedure Notes [facility] - 07/12/2014 12:00 AM PDT 14 1:45 PM [facility] - 07/04/2014 12:00 AM PDT [facility] - 07/02/2014 12:00 AM PDT documented in this encounter Miscellaneous Notes Plan of Care - ONBASE SCAN [facility] 07/12/2014 12:00 AM PDT iscellaneous - [facility] 07/12/2014 12:00 AM PDTElec tronically signed by Mariah Schulte at 07/12/2014 1:45 PM PDTMiscellaneous - [facility] 07/12/2014 12:00 AM PDT i scellaneous - BRUCE SCAN [facility] - 07/12/2014 12:00 AM PDT lan of Care - Joe Louis RN - 07/05/2014 5:00 PM PDTProb honey: General Plan of Care (Adult, Obstetrics) Goal: Care Plan Shift Summary & Review . Outcome: Adequate for Discharge Date Met: 07/05/14 Pt DCd to [facility] per her request. Did not [...] and I will be going to a halfway as I have 16 steps to my [...] TBD) Equipment Recommendations: tub bench;hand held shower head;income tax investigator;comfort height toilet ( pt. has all necessary [...] might be different fro m the original. NURSING HOME FACILITY TRANSFER ORDERS Patient Name: Cindy Arndt Patient : 1955 Gender: female Date of Admission: 07/02/2014 Date of Discharge: 07/05/2014 Admitting Provider: Frandy Teresa DO Discharging Provider: Chris Nicole PA-C Consultants: none PCP: Natalee Andersen [facility] transferring to: [facility] Provider after transfer: PCP and Dr. Frandy Teresa CODE STATUS: [x] Attempt CPR [] Do not resuscitate If patient is pulseless and not breathing, RN/PROCESS PUMPER may pronounce . Advanced Directives included: [] [...] for this patient. Diet: [] As tolerated BAG SEWER may upgrade or downgrade diet as condition Indicates. [x] RN may downgrade diet as indicated. Type: [] Continue current diet of: Diet and Supplements Diet DIET CONSISTENT CARBOHYDRATE Number of Occurrences: -1 Days [] Other: Consistency/Precautions: [] Whole [] Thin Liquids [] Cut-up [] [place] Thick [] Advanced Chopped [] Honey Thickened [] Chopped [] Advanced Ground [] 1:1 feedings [] Ground/Pureed [] Other: Tube Feedings: [] PEG [] GT [] JT [] NGT [] Formula type: (Gasser Machine Operator may change/substitute if indicated). [] Continuous [...] & Management for: ____same as above [] BAG SEWER Evaluation &Management for: [] Other: Wound/Skin Care: [...] Take 15 mg by mouth ni linda. San Elizario-3 Fatty Acids (FISH OIL CONCENTRATE) 1000 MG [...] Chris Nicole PA-C, certify that post hospital 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 care is medically nec essary on a continuing basis for any of the conditions for which he/she received care during this hospitalization. Check one: [x] Skilled [] Intermediate Additional Orders/Instructions: Physician's signature:__Chris Nicole PA-C 07/05/2014 13:18 [facility] USE ONLY: [] Admitting orders [...] tolerate progressive walking and doing stairs du [facility] stay due to multiple pain c/o. Attempted to see pt. 1145, however had just rec eived pain medication and requested PT return, SPL 9/10. At 1205 pt contacted PT for assist OOB due to left LE spasms and need for position change. Sitting at EOB on arrival, DIRECTOR AMBULATORY pres ent. Pt. donned LSO brace, stood [...] of endurance. When patient is walking in [facility] with a regular FWW she has to stop frequently and states she feels very weak, like sh e may fall. Patient lives alone. Outpatient prescriptions are filled at [facility] in [facility]. Electronically signed by: Franca Narvaez RN 07/05/2014 10:43 lan of Adilene Layne Rivers - 07/05/2014 10:39 AM PDTFaxed referral to Gabriela Stout and Lidia Tran. [place] : [id number] and [place]: [phone] Electronically signed by: Layne Collado 07/05/2014 10:40 [...] RRT 07/04/2014 23:57 lan of Care - Madisno Berry AGRAWAL - 07/04/2014 5:46 PM PDTProblem: [...] TBD) Equipment Recommendations: tub bench;hand held shower head;income tax investigator;comfort height toilet ( pt. has all necessary equipment) Planned Interventions: ADL retraining;transfer training Patient Status/Goals Reflects last filed data of patient status; may be from multiple contributors. Grooming: Status: did not occur today Assist: Utilizes: STG: Status: New Goal:modified independent LTG: Status: Goal: UE Dressing: Status: SBA Assist: Utilizes: STG: Status: Goal: LTG: Status: Goal: LE Dressing: Status: SBA Utilizes: income tax investigator STG: Status: New Goal: modified independent LTG: [...] bed mobil ity. Pt has been using CLIENT CARE SPECIALIST and pain pills during the night. Zofran [...] unds are clear. lan of Care - Mraia T Vidal RN - 07/03/2014 4:37 PM [...] by herself in a small apartment in [place]. Patient states she has her apartment set [...] to come from [facility] [place]. She states the Said she might benefit [facility] upon discharge. She would like me to contact [facility] to giv e them a [...] Pt. resting in bed on arrival, used CLIENT CARE SPECIALIST x 2 during session. SPL /10. Pt. hoping to urinate greeting card editor to straight cath. Sidelying to sit at [...] TBD) Equipment Recommendations: tub bench;hand held shower head;income tax investigator;comfort height toilet ( pt. has all necessary [...] & Review . Outcome: Progressing Pt using CLIENT CARE SPECIALIST and PO pain pills, c/o numbness on [...] and on a continuous oximeter for her CLIENT CARE SPECIALIST. She was unable to do her IS because o f the medications. She has the IS at bedside with a goal of 2400. She did not require additi onal respiratory care throughout the evening. p Note - Frandy Teresa, DO - 07/02/2014 2:25 PM PDTDATE: 07/02/2014 SURGEON: Frandy Teresa MD. ARTILLERY OR [employer]RE OBSERVER: ZANE Oh PREOPERATIVE DIAGNOSES 1. Spondylolisthesis, L5-S1. [...] x 26 mm Capstone PEEK cage from [employer] was chosen. It was filled with Infus [...] Note Cindy Arndt 58 y.o. female 1955 [id number] Proc. Date 07/02/2014 Preop Dx Spondylolisthesis L5-S1 Postop Dx same Procedure Procedure(s):MIS L5-S1 TRANSFORAMINAL LUMBAR INTERBODY FUSION Anesthesia General Surgeon Frandy Teresa DO Guillotine Operator ZANE Oh EBL 100 mL Findings Findings consistent with scheduled procedure. No other abnormalities found. Complications none Specimens * No specimens in log * Drains Electronically signed by: Frandy Teresa DO 07/02/2014 14:22 [facility] documented in this en counter Plan of [...] [address] | [place] | [phone] | | [facility] | | [address] | | | - LABORATORY | | | | + + + + + | [facility] | [address] | [place], [place] | | | [facility] | | [address] | | | - LABORATORY | | [...] + | [facility] | [address] | [place] | [phone] | | [facility] | | [address] | | | - LABORATORY | | | | + + + + + | [facility] | [address] | [place], [place] | | | [facility] | | [address] | | | - LABORATORY | | [...] [address] | [place] | [phone] | | [facility] | | [address] | | | - LABORATORY | | | | + + + + + | [address] [facility] | [address] | [place] | | | [facility] | | [address] | | | - LABORATORY | | [...] + | [facility] | [address] | [place] | [phone] | | [facility] | | [address] | | | - LABORATORY | | | | + + + + + | [facility] | [address] | [place], [place] | | | [facility] | | [address], [facility] | | | - LABORATORY [...] [address] | [place] | [phone] | | [facility] | | [address] | | | - LABORATORY | | | | + + + + + | [facility] | [address] | [place] | | | [facility] | | [address], [facility] | | | - LABORATORY [...] | | POC | | | [facility] | | | | | [...] + | [facility] | [address] | [place] | [phone] | | [facility] | | [address] | | | - LABORATORY | | | | + + + + + | [facility] | [address] | [place], [place] | | | [facility] | | [address], [facility] | | | - LABORATORY [...] + | [facility] | [address] | [place], [place] | [phone] | | [facility] | | [address] | | | - LABORATORY | | | | + + + + + | [facility] | [address] | [place] | | | [facility] | | [address] | | | - LABORATORY | | [...] | | | POC | | | [facility] | | | | [...] + | [facility] | [address] | [place] | [phone] | | [facility] | | [address] | | | - LABORATORY | | | | + + + + + | [facility] | [address] | [place] | | | [facility] | | [address], [facility] | | | - LABORATORY [...] + | [facility] | [address] | [place], [place] | [phone] | | [facility] | | [address] | | | - LABORATORY | | | | + + + + + | [facility] [facility] | [address] | [place], [place] | | | [facility] | | [id number] [place] [address] | | | - LABORATORY | | [...] | of hardware for posterior fusion from V1wkzoico S1 with interbody hardware at L5-S1. The [...] + | MISCELLANEOUS LAB | | | [phone] | + +---------+ + + | MISCELANIOUS LAB | | | [phone] | + +---------+ + + POC Glucose [...] [address] | [place] | [phone] | | [facility] | | [address] | | | - LABORATORY | | | | + + + + + | [facility] | [address] | [place], [place] | | | [facility] | | [address], [facility] | | | - LABORATORY [...] + | [facility] | [address] | [place] | [phone] | | [facility] | | [address] | | | - LABORATORY | | | | + + + + + | [facility] | [address] | [place] | | | [facility] | | [address] | | | - LABORATORY | | [...] [address] | [place] | [phone] | | [facility] | | [address] | | | - LABORATORY | | | | + + + + + | [address] [facility] | [address] | [place] | | | [facility] | | [address] | | | - LABORATORY | | [...] + | [facility] | [address] | [place] | [phone] | | [facility] | | [address] | | | - LABORATORY | | | | + + + + + | [facility] | [address] | [place], [place] | | | [facility] | | [address] | | | - LABORATORY | [...] [address] | [place] | [phone] | | [facility] | | [address] | | | - LABORATORY | | | | + + + + + | [facility] | [address] | [place] | | | [facility] | | [address], [facility] | | | - LABORATORY [...] | [facility] | | [address] | | | - BLOOD BANK | [...] + +---------+ +---+---+---+ | morphine 5 mg/mL CLIENT CARE SPECIALIST syringe | New Bag | 07/02/20 | [...] | | | | Dose(mg): 0, Starting CLIENT CARE SPECIALIST | | | | | | | Dose(mg): 1, Incremental Increase | | | | | | | CLIENT CARE SPECIALIST Dose(mg): 0.5, Maximum CLIENT CARE SPECIALIST | | | | | | | [...]
--- OUTSIDE RECORDS SUMMARY | ~2020-07-01 | XMS | Encounter Summary ---
Demographics + + + | Address | [address] [facility] [address] | | | [place] [address] | + + + | Home Phone [...] [place] | | | | | [address] | | + + + + + Care Team Providers + +------+ + | Care Prn Physical Therapist Name | Role | Phone | + +------+ + | Basim Bolanos MD | PCP | | + +------+ + Encounter Details +--------+ + + + + | Date | Type | Department | Care Team | Description | +--------+ + + + + | 03/30/ | Hospital | [facility] | Tyrese Neely MD | | | 2012 | Encounter | MED CTR MP INTRA OP | [address] [place] | | | | | [address] | [address] [place], [place] | | | | | [place], [place] | [address] | | | | | [address] | | | | | | [phone] | | | +--------+ + + + [...] + + + +---------+ + + | Warrior-3 Fatty | Take 1,000 mg by | [...] Neely MD - 03/30/2013 12:10 [place] [address] Patient Name: CINDY ARNDT Provider: Tyrese Neely MD Unit #: [id number] Location: [facility] : 1955 Patient Name: Cindy Arndt Gender: F Procedure Date: 03/30/2013 12:10 PM Date of : 1955 Age: 57 Admit Type: Outpatient Room: Endo Room 1 Note Status: Finalized Attending MD: Tyrese Neely MD Procedure: Upper GI endoscopy Indications: Epigastric abdominal pain Providers: Tyrese Neely MD, Vanesa Anne RN, Yesenia Downing, Manager Nicu, Guillermo Ortiz MD (Anesthesia Staff) Referring MD: [...] physician, the nurse, the anesthesiologist and the orthodontic laboratory technician. The procedure was verified in [...] + | [facility] | [address] | [place] | [phone] | | [facility] | | [address] | | | - LABORATORY | | | | + + + + + | [facility] | [address] | [place] | | | [facility] | | [id number] [place] [address] | | | - LABORATORY | | [...] ST. | [address] | [place] | [phone] | | [facility] | | [address] | | | - LABORATORY | | | | + + + + + | [facility] | [address] | [place] | | | [facility] | | [address] [place] [address] | | | - LABORATORY | | | | + + + + + documented in this encounter Visit Diagnoses Not on filedocumented in this encounter"
--- OUTSIDE RECORDS SUMMARY | ~2020-07-01 | XMS | Encounter Summary ---
Demographics + + + | Address | [address] [facility] | | | [place] [address] | + + + | Home Phone [...] [place] | | | | | [address] | | + + + + + Care Team Providers + +------+ + | Care Electrophysiology Scientist Name | Role | Phone | [...] [facility] | [address] [place], [place] | | | | | [place], [place] | [id number] | | | | | [address] | | | | | | [phone] | | | +--------+--------+ + + + [...] to notify that p rescription refill for Grayland has been authorized. Informed about MRI results per MD results. Also notified about new medication neurontin. Pt verbalized understanding and will notify o ur office if her numbness to bilat feet (upper and lower) doesn't improve. Pt requested refi ll rx of Grayland to be mailed via certified mail to [facility] signed by Megan Schreiber, RN [...] PSTPt called to requesting medication refill of Grayland. Pt c/o l ower back and left [...]
--- OUTSIDE RECORDS SUMMARY | ~2020-07-01 | XMS | Encounter Summary ---
Demographics + + + | Address | [address] [facility] | | | [place] [address] | + + + | Home Phone [...] [place] | | | | | [address] | | + + + + + Care Team Providers + +------+ + | Care Die Cast Operator Name | Role | Phone | [...] | | | [address] | [place] [address] | | | | | [place] [address] | | | | | | [phone] | | | +--------+ + + + [...]
--- OUTSIDE RECORDS SUMMARY | ~2020-07-01 | XMS | Encounter Summary ---
Demographics + + + | Address | [address] [facility] | | | [place] [address] | + + + | Home Phone [...] [place] | | | | | [address] | | + + + + + Care Team Providers + +------+ + | Care Material Chaser Name | Role | Phone | [...] + + | 03/26/ | Telephone | [facility] | Thierry Fry | Medication Prior | | 2014 | | MEDICINE [address] [place] [address] | MD Lisa [address] | Authorization | | | | [employer], | [place] | (Dexilant 60Mg) | | | | [place] [address] | [address] | | | | | [phone] | | | +--------+ + + + [...] were not received I contacted insurance ID# [id number] This has been denied. The patient must try and fail 2 of the following Omeprazole Protonix Prevacid Nexium Please advise elepho ne Encounter - Saba Acosta Cert MA - 03/26/2015 1:32 PM PDTCalled and requested a prior authorization Requested for via fax from [employer] Prior auth medication Dexilant 60MgElectronically signed by Faustina Aquino MA at 03/26 1:52 PM PDTdocumented in this encounter Plan of Treatment Not on filedocumented as of this encounter Visit Diagnoses Not on filedocumented in this encounter"
--- OUTSIDE RECORDS SUMMARY | ~2020-07-01 | XMS | Encounter Summary ---
Demographics + + + | Address | [address] [facility] [address] | | | [place] [address] | + + + | Home Phone [...] [place], [place] | | | | | [address] | | + + + + + Care Team Providers + +------+ + | Care Sonoscope Operator Name | Role | Phone | + +------+ + PCP | Unavailable | + +------+ + Encounter Details +--------+ + + + + | Date | Type | Department | Care Team | Description | +--------+ + + + + | 12/24/ | Hospital | [facility] | | | | 1998 | Encounter | MED CTR XRAY [address] | | | | [address] | | | | | | [place] [address] | | | | | | [phone] | | | +--------+ + + + [...]
--- OUTSIDE RECORDS SUMMARY | ~2020-07-01 | XMS | Encounter Summary ---
Demographics + + + | Address | [address] [address] [facility] [address] | | | [place] [address] | + + + | Home Phone [...] [place], [place] | | | | | [address] | | + + + + + Care Team Providers + +------+ + | Care Community Health Program Coordinator Name | Role | Phone | + +------+ + PCP | Unavailable | + +------+ + Encounter Details +--------+ + + + + | Date | Type | Department | Care Team | Description | +--------+ + + + + | 06/07/ | Hospital | [facility] | | | | 1991 - | Encounter | MED CTR GENERIC OP | | | | | | CONV DEPT [address] | | | | 10/07/ | | [address] [place], | | | | 1991 | | [place] [address] | | | | | | [phone] | | | +--------+ + + + [...]
--- OUTSIDE RECORDS SUMMARY | ~2020-07-01 | XMS | Encounter Summary ---
Demographics + + + | Address | [address] [facility] | | | [place] [address] | + + + | Home Phone [...] [place] | | | | | [address] | | + + + + + Care Team Providers + +------+ + | Care Percussion Instrument Repairer Name | Role | Phone [...] as of this encounter Procedure Notes Interface, Front Services Agent In - 10/24/2006 3:[address] [phone] [facility] OPERATION RECORD Med [...] | Transcriptions | + + | Interface, Front Services Agent In - 10/24/2006 3:09 AM PST | | [address] | | [place], [place] [address] [place] | | [facility] HospitalOPERATION RECORDMed Rec No.: [id number] Date: | [...]
--- OUTSIDE RECORDS SUMMARY | ~2020-07-01 | XMS | Encounter Summary ---
Demographics + + + | Address | [address] [facility] [address] | | | [place] [address] | + + + | Home Phone [...] [place], [place] | | | | | [address] | | + + + + + Care Team Providers + +------+ + | Care Glazier Supervisor Name | Role | Phone | + +------+ + PCP | Unavailable | + +------+ + Encounter Details +--------+ + + + + | Date | Type | Department | Care Team | Description | +--------+ + + + + | 09/10/ | Hospital | [facility] | | | | 1992 | Encounter | MED CTR LABORATORY | | | | | | [address] | | | | | | [place] | | | | | | [address] | | | | | | [phone] | | | +--------+ + + + [...]
--- OUTSIDE RECORDS SUMMARY | ~2020-07-01 | XMS | Encounter Summary ---
Demographics + + + | Address | [address] [facility] | | | [place] [address] | + + + | Home Phone [...] [place] | | | | | [address] | | + + + + + Care Team Providers + +------+ + | Care Resource Conservation Specialist Name | Role | Phone | [...] + | 03/07/ | Telephone | [facility] | Katharine Cardona PA-C | Results | | 2014 | | MEDICINE [place] | [address] [facility] | | | | | [address] | [place] [address] | | | | | [place], [place] | [phone] | | | | | [address] | | | | | | [phone] | | | +--------+ + + + [...] Miscellaneous Notes Telephone Encounter - Adrianne Horton, Customer Orders Clerk - 03/11/2015 3:41 PM PDTCalled Pat and delivered her results. Patient verbalized good understanding. elephone Encounter - Adrianne Horton , Customer Orders Clerk - 03/11/2015 8:40 AM PDTCall placed to [...]
--- OUTSIDE RECORDS SUMMARY | ~2020-07-01 | XMS | Encounter Summary ---
Demographics + + + | Address | [address] [facility] | | | [place] [address] | + + + | Home Phone [...] [place] | | | | | [address] | | + + + + + Care Team Providers + +------+ + | Care Cable Spooler Name | Role | Phone | + [...] [address] | [address] [place], [place] | (Primary Dx) | | | | [place], [place] | [address] | | | | | [address] | | | | | | [phone] | | | +--------+ + + + [...] + | MISCELLANEOUS LAB | | | [phone] | + +---------+ + + | MISCELANIOUS LAB | | | [phone] | + +---------+ + + documented in this encounter Visit Diagnoses + + | Diagnosis | + + | Status post lumbar spinal fusion - Primary Arthrodesis status | + + documented in this encounter"
--- OUTSIDE RECORDS SUMMARY | ~2020-07-01 | XMS | Encounter Summary ---
Demographics + + + | Address | [address] [facility] | | | [place] [address] | + + + | Home Phone [...] [place] | | | | | [address] | | + + + + + [...] + | 11/25/ | Telephone | [facility] | Frandy Teresa, | Medication Refill | | 2014 | | NEUROSURGERY [address] | DO [address] | Assistance | | | | [address] [facility] | [address] [place], [place] | | | | | [place], [place] | [id number] | | | | | [address] | | | | | | [phone] | | | +--------+ + + + [...] get a refill of her pain medication [place] 10-325 mg. I l et her know we are beyond the 90 days after her surgery and refills need to come from her [facility] care provider. She requests us to update her PCP. documented in t his encounter Plan of Treatment Not on filedocumented as of this encounter Visit Diagnoses Not on filedocumented in this encounter"
--- OUTSIDE RECORDS SUMMARY | ~2020-07-01 | XMS | Encounter Summary ---
Demographics + + + | Address | [address] [facility] | | | [place] [address] | + + + | Home Phone [...] [place] | | | | | [address] | | + + + + + Care Team Providers + +------+ + | Care Rural Route Mail Carrier Name | Role | Phone | [...] + + | 07/30/ | Telephone | [facility] | Ashley Chávez | Other (Patient | | 2019 | | CARDIOLOGY GENESIS Abad, Personal Fitness Trainer | concerns ) | | | | [address] | | | | | | [place] | | | | | | [address] | | | | | | [phone] | | | +--------+ + + + [...] Miscellaneous Notes Telephone Encounter - Ashley Chávez Personal Fitness Trainer - 07/30/2019 1:40 PM PDTCalfabio norton to patient to advise of Dr. Peterson's notes. Patient stated understanding. BRODY:IRINA-SANJANA. el ephone Encounter - Ashley Chávez, Personal Fitness Trainer - 07/30/2019 1:40 PM PDT----- Mess age [...] Thanks ----- Message ----- From: Ashley Chávez Personal Fitness Trainer Sent: 07/30/2019 11:47 To: Desiree Peterson DO [...]
--- OUTSIDE RECORDS SUMMARY | ~2020-07-01 | XMS | Encounter Summary ---
Demographics + + + | Address | [address] [facility] | | | [place] [address] | + + + | Home Phone [...] Author | [facility] | | | [...] [place] | | | | | [address] | | + + + + + Care Team Providers + +------+ + | Care Information Technology Professor Name | Role | Phone | [...] + + | 08/21/ | Documentati | [facility] | Katharine Moncada, | Other (urgent | | 2019 | on | CARDIOLOGY GENESIS | Technologist | report) | | | | [address] | | | | | | [place] | | | | | | [address] | | | | | | [phone] | | | +--------+ + + + [...]
--- OUTSIDE RECORDS SUMMARY | ~2020-07-01 | XMS | Encounter Summary ---
Demographics + + + | Address | [address] [facility] [address] | | | [place] [address] | + + + | Home Phone [...] [place] | | | | | [address] | | + + + + + Care Team Providers + +------+ + | Care Contact Center Associate Name | Role | Phone | [...] + + | 05/23/ | Telephone | [facility] | Desiree Peterson DO | Chest Pain | | 2020 | | CARDIOLOGY [place] | [address] | | | | | [address] | [place] [address] [place], [place] | | | | | [place], [place] | [address] | | | | | [address] | | | | | | [phone] | | | +--------+ + + + [...] Protocols, 4th Edition by Lincoln [place] MD [facility]. Chest Pain protocol was used. documented in this encounter Plan of Treatment Not on filedocumented as of this encounter Visit Diagnoses Not on filedocumented in this encounter
--- OUTSIDE RECORDS SUMMARY | ~2020-07-01 | XMS | Encounter Summary ---
Demographics + + + | Address | [address] [facility] | | | [place] [address] | + + + | Home Phone [...] [place], [place] | | | | | [address] | | + + + + + Care Team Providers + +------+ + | Care Binding Cutter Synthetic Cloth Name | Role | Phone | + +------+ + PCP | Unavailable | + +------+ + Encounter Details +--------+ + + + + | Date | Type | Department | Care Team | Description | +--------+ + + + + | 03/26/ | Hospital | [facility] | | | | 2001 | Encounter | MED CTR LABORATORY | | | | | | [address] | | | | | | [place] | | | | | | [address] | | | | | | [phone] | | | +--------+ + + + [...]
--- OUTSIDE RECORDS SUMMARY | ~2020-07-01 | XMS | Encounter Summary ---
Demographics + + + | Address | [address] [facility] | | | [place] [address] | + + + | Home Phone [...] [place] | | | | | [address] | | + + + + + Care Team Providers + +------+ + | Care Plaster Form Maker Name | Role | Phone | [...] | Frandy Simons DO | [address] | | | | | of skin | [address] | [place], | | | | | sensation | [address] | [place] | | | | | Arthrodesis | [place], [place] | [address] | | | | | status Left | [address] | Phone: | | | | | leg | Phone: | [phone] | | | | | weakness | [phone] | Fax: | | | | | Procedures | Fax: | [phone] | | | | | MRI Lumbar | [phone] | | | | | | Spine [...] | Frandy A, DO | [address] | | | | | of skin | [address] | [place], | | | | | sensation | [address] | [place] | | | | | Arthrodesis | [place] | [address] | | | | | status Left | [address] | Phone: | | | | | leg | Phone: | [phone] | | | | | weakness | [phone] | Fax: | | | | | Procedures | Fax: | [phone] | | | | | MRI Lumbar | [phone] | | | | | | Spine wo | | | | | | | Contrast | | | +--------+--------+ + + + + Encounter Details +--------+ + + + + | Date | Type | Department | Care Team | Description | +--------+ + + + + | 08/19/ | Hospital | [facility] | Frandy Teresa, | Status post lumbar | | 2013 | Encounter | MED CTR MRI [address] | DO [address] | spinal fusion; Left | | | | [address] [place], | [address] [place] | leg numbness; Left | | | | [place] [address] | [address] | leg weakness | | | | [phone] | | | +--------+ + + + [...] + + + +---------+ + + | [place]-3 Fatty | Take 1,000 mg by | [...] of this encounter Miscellaneous Notes Miscellaneous - [facility] - 09/06/2014 12:00 AM PST documented in [...] the round structure with high T1 and Y8negnvc in the right L3 vertebral | | [...] + | MISCELLANEOUS LAB | | | [phone] | + +---------+ + + | MISCELANIOUS LAB | | | [phone] | + +---------+ + + documented in [...]
--- OUTSIDE RECORDS SUMMARY | ~2020-07-01 | XMS | Encounter Summary ---
Demographics + + + | Address | [address] [facility] | | | [place] [address] | + + + | Home Phone [...] [place] | | | | | [address] | | + + + + + Care Team Providers + +------+ + | Care Tow Operator Name | Role | Phone | [...] [place] | | | | | | [address] | | | | | | [phone] | | | +--------+ + + + [...]
--- OUTSIDE RECORDS SUMMARY | ~2020-07-01 | XMS | Encounter Summary ---
Demographics + + + | Address | [address] [facility] | | | [place] [address] | + + + | Home Phone [...] [place] | | | | | [address] | | + + + + + Care Team Providers + +------+ + | Care Health Information Provider Name | Role | Phone | [...] + + | 08/16/ | Telephone | [facility] | Ashley Chávez | Other (Called to | | 2018 | | CARDIOLOGY [place] | Pollo, Air Tube Releaser | tell patient what | | | | [address] | | [place] said. ) | | | | [place] [address] | | | | | | [place] | | | | | | [address] | | | | | | [phone] | | | +--------+ + + + [...] Miscellaneous Notes Telephone Encounter - Ashley Chávez, Air Tube Releaser - 08/16/2019 2:57 PM PDTCall m cierra to patient to advise of Dr. Peterson's notes. Patient stated understanding. BRODY:IRINA-AAMA el ephone Encounter - Ashley Chávez Air Tube Releaser - 08/16/2019 2:56 PM PDT----- Mess age [...] Thanks. ----- Message ----- From: Lesa Ochoa Air Tube Releaser Sent: 08/13/2019 13:31 To: Desiree Peterson DO [...]
--- OUTSIDE RECORDS SUMMARY | ~2020-07-01 | XMS | Encounter Summary ---
Demographics + + + | Address | [address] [facility] | | | [place] [address] | + + + | Home Phone [...] [place] | | | | | [address] | | + + + + + Care Team Providers + +------+ + | Care School Treasurer Name | Role | Phone | + [...] as of this encounter Procedure Notes Interface, Marine Equipment Test Engineer In - 11/04/2006 3:03 AM PST [address] [id number] [facility] OPERATION RECORD Med Rec No.: [id number] Date: 07/08/98 Name: Cindy [place] ATTENDING SURGEON: Lazaro Tello M.D. Professor, fiscal accountant(S): Jose Dawson M.D. Fellow, Ophthalmology PREOPERATIVE DIAGNOSIS: [...] skin retractor was put in place. The [place]mont elevators were used to separate the orbicularis [...] | Transcriptions | + + | Interface, Marine Equipment Test Engineer In - 11/04/2006 3:03 AM PST | | [facility] [facility] | | [place], [place] [address] [facility] | | ClinicsOPERATION RECORDMed Rec [...] skin retractor was put in place. The [place]mont elevators wereused to separate the | | [...]
--- OUTSIDE RECORDS SUMMARY | ~2020-07-01 | XMS | Encounter Summary ---
Demographics + + + | Address | [address] [facility] | | | [place] [address] | + + + | Home Phone [...] [place] | | | | | [address] | | + + + + + Care Team Providers + +------+ + | Care Ultra Sound Technician Name | Role | Phone | [...] + + | 08/20/ | Documentati | [facility] | Katharine Moncada, | Other (urgent | | 2019 | on | CARDIOLOGY GENESIS | Technologist | report) | | | | [address] | | | | | | [place] | | | | | | [address] | | | | | | [phone] | | | +--------+ + + + [...] documented as of this encounter Progress Notes Katharien Moncada, Technologist - 08/20/2019 9:04 AM PDTReceived [...]
--- OUTSIDE RECORDS SUMMARY | ~2020-07-01 | XMS | Encounter Summary ---
Demographics + + + | Address | [address] [facility] | | | [place] [address] | + + + | Home Phone [...] [place] | | | | | [address] | | + + + + + Care Team Providers + +------+ + | Care Residential Collections Name | Role | Phone | + +------+ + PCP | Unavailable | + +------+ + Encounter Details +--------+ + + + + | Date | Type | Department | Care Team | Description | +--------+ + + + + | 04/16/ | Hospital | [facility] | Deon Gonzales | | | 2005 | Encounter | MED CTR SLEEP | MD [place] | | | | | [place] [address] | [address] [place] | | | | | [place], [place] | [place] [address] | | | | | [address] | [phone] | | | | | [phone] | | | +--------+ + + + [...]
--- OUTSIDE RECORDS SUMMARY | ~2020-07-01 | XMS | Encounter Summary ---
Demographics + + + | Address | [address] [facility] | | | [place] [address] | + + + | Home Phone [...] [place] | | | | | [address] | | + + + + + Care Team Providers + +------+ + | Care Load Dispatcher Name | Role | Phone [...] [address] | [address] [place], [place] | | | | | [place] | [address] | | | | | [address] | | | | | | [phone] | | | +--------+ + + + [...] + | MISCELLANEOUS LAB | | | [phone] | + +---------+ + + | MISCELANIOUS LAB | | | [phone] | + +---------+ + + documented in this encounter Visit Diagnoses + + | Diagnosis | + + | Back pain - Primary Backache, unspecified | + + documented in this encounter"
--- OUTSIDE RECORDS SUMMARY | ~2020-07-01 | XMS | Encounter Summary ---
Demographics + + + | Address | [address] [facility] | | | [place] [address] | + + + | Home Phone [...] [place] | | | | | [address] | | + + + + + Care Team Providers + +------+ + | Care Toll Mechanic Name | Role | Phone | + +------+ + PCP | Unavailable | + +------+ + Encounter Details +--------+ + + + + | Date | Type | Department | Care Team | Description | +--------+ + + + + | 04/27/ | Hospital | [facility] | Sage Garza MD | | | 2001 | Encounter | HOSPITAL EMERGENCY | | | | | | CENTER [address] | | [address] [place], [place] | | | | | | [address] | | | | | | [phone] | | | +--------+ + + + [...]
--- OUTSIDE RECORDS SUMMARY | ~2020-07-01 | XMS | Encounter Summary ---
Demographics + + + | Address | [address] [facility] | | | [place] [address] | + + + | Home Phone [...] [place] | | | | | [address] | | + + + + + Care Team Providers + +------+ + | Care Inspector Cold Working Name | Role | Phone | + [...] [place] | | | | | | [address] | | | | | | [phone] | | | +--------+ + + + [...]
--- OUTSIDE RECORDS SUMMARY | ~2020-07-01 | XMS | Encounter Summary ---
Demographics + + + | Address | [address] [facility] [facility] | | | [place] [address] | + + + | Home Phone [...] [place] | | | | | [address] | | + + + + + Care Team Providers + +------+ + | Care Smoking Pipe Maker Name | Role | Phone | + +------+ + | Basim Bolanos MD | PCP | | + +------+ + Encounter Details +--------+ + + + + | Date | Type | Department | Care Team | Description | +--------+ + + + + | 03/01/ | Abstract | [facility] [place] | [facility], | | | 2012 | | GASTROENTEROLOGY | [place]O Thomas [address] | | | | | [address] [place] | [address] | | | | | [address] [place], [place] | [place], [place] | | | | | [address] | [address] | | | | | [phone] | | | +--------+ + + + [...]
--- OUTSIDE RECORDS SUMMARY | ~2020-07-01 | XMS | Encounter Summary ---
Demographics + + + | Address | [address] [facility] | | | [place] [address] | + + + | Home Phone [...] [place] | | | | | [address] | | + + + + + Care Team Providers + +------+ + | Care Clinic Coordinator Name | Role | Phone | [...] + + | // | Emergency | [facility] | [place], | CVA (cerebral | | 2015 | | MED CTR EMERGENCY | Davey Simons MD [address] | vascular accident) | | | | CENTER [address] | [address] [facility] | ([facility]) (Primary Dx) | | | | [place], [place] | [place] [address] | | | | | [address] | [phone] | | | | | [phone] | | | +--------+ + + + [...] + + + +---------+ + + | Purdys-3 Fatty | Take 1,000 mg by | [...] might be differe nt from the original. [facility] Emergency Department Encounter Note [address] [place] [address] PCP:Natalee Anderesn [phone] CHIEF COMPLAINT: Chief Complaint Patient presents with Facial Droop ED Room: ED07/ED07 [facility] Cindy Arndt is a 59 y.o. female who presents to the Emergency Department accompanied by a friend from [place] for evaluation. The patient recently had symptoms that were diagno sed as stroke or TIA. The symptoms were of a weakness and numbness in her right arm and leg . She was hospitalized for 4 days in [place] for this. She was discharged and subsequent ly has had 2 or 3 emergency department visits in [place] for symptoms diagnosed as TIAs. These have been recurrent and worsening right arm and leg weakness and then today with some right facial drooping and drooling. She is on Aggrenox. She had a full workup in [place] including brain CT, brain MRI, and carotid [...] Laterality: N/A; Surgeon: Frandy castellanos DO; Location: [facility] MAIN OR CURRENT MEDICATIONS Discharge Medication [...] or Severe Contraindications. Consult references such as Ontodia for furthe r information. Magnesium 250 MG [...] or Severe Contraindications. Consult references such as Ontodia for further information. Multiple Vitamins-Minerals (CENTRUM SILVER PO) Take 1 tablet by mouth Daily.Historical Med OLANZapine zydis (ZYPREXA ZYDIS) 15 MG disintegrating tablet Take 15 mg by mouth nightly. Purdys-3 Fatty Acids (FISH OIL CONCENTRATE) 1000 MG [...] review all of her imaging studies from [facility] ED COURSE & MEDICAL DECISION MAKING Pertinent Labs & Imaging studies were reviewed along with EMS notes and snf record s if applicable. (See chart for details) Medications and Allergy list reviewed. Nurses note and old records were reviewed The patient was seen and examined, I was finally able to get [facility] which showed a normal MRI and [...] (HCC) Follow-up Information Follow up with [facility]. Specialty: Emergency Medicine Contact information: [address] [facility] [address] Follow up with [facility]. Specialty: Emergency Medicine Contact information: [address] [facility] [address] Follow up with Natalee Andersen NP. Specialty: Family Nurse Practitioner Contact information: [address] [place] [address] Schedule an appointment as soon as possible for a visit with Baudilio Newman MD. Specialty: Neurology Contact information: [address] [facility] [id number] Discharge Medication List as of 02/26/2015 15:21 Davey Varela MD 02/26/15 1732 do cumented in this encounter Miscellaneous Notes ED Triage Notes - Yesenia Monroy RN - 02/26/2015 1:11 PM PDTC/O right sided facial mahendra op and numbness to right arm and leg onset yesterday at approximately 1800. Pt was seen in [facility] by her primary care physician this morning [...] mL/min/1.73m2 | [facility] | | | [place]ian | RATE,ESTIMATED | | MEDICAL | | | | mL/min/1.94y8Rlmi than | | CENTER - | | [...] [address] | [place] | [phone] | | [facility] | | [address] | | | - LABORATORY | | [...] [address] | [place] | [phone] | | [facility] | | [address] | | | - LABORATORY | | [...] ---- | | | 02/26/2015 13:10 [facility] | | | Emergency -numbness/facial droop 02/26/2015 08:15 [facility] | | | [facility] Urgent Care 02/19/2015 | | | 10:15 [facility] | | | -Diabetes [...] as uncontrolled 02/17/2015 | | | 08:22 [facility] Emergency | | | -Long-term (current) [...] and uterus 02/14/2015 | | | 09:56 [facility] Emergency | | | -Disturbance of [...] status 02/06/2015 10:46 | | | [facility] | | | -Generalized [...] residual deficits | | | 02/01/2015 21:38 [facility] | | | Emergency 01/22/2015 14:00 [facility] | | | Urgent Care -Myalgia [...] intervertebral disc | | | 01/16/2015 12:15 [facility] | | | Urgent Care -Unspecified [...] other | | | medications 01/07/2015 11:45 [facility] | | | Urgent Care -Unspecified [...] acquired hypothyroidism 12/30/2014 | | | 17:54 [facility] Emergency | | | -Obstructive sleep [...] essential hypertension | | | 12/30/2014 14:30 [facility] | | | Urgent Care -Cramp [...] | | -Cramp of limb 11/29/2014 16:15 [facility] | | | Urgent Care -Esophageal [...] ------ | | | --------- 1 0 [facility]. | | | [facility] 6 0 [facility]. | | | [facility] 7 0 Total | | [...]
--- OUTSIDE RECORDS SUMMARY | ~2020-07-01 | XMS | Encounter Summary ---
Demographics + + + | Address | [address] [facility] [address] [facility] | | | [place] [address] | + + + | Home Phone [...] [place] | | | | | [address] | | + + + + + Care Team Providers + +------+ + | Care Webbing Inspector Name | Role | Phone | [...] [place] | | | | | | [address] | | | | | | [phone] | | | +--------+ + + + [...]
--- OUTSIDE RECORDS SUMMARY | ~2020-07-01 | XMS | Encounter Summary ---
Demographics + + + | Address | [address] [facility] [facility] [address] [facility] | | | [place] [address] | + + + | Home Phone [...] [place] | | | | | [address] | | + + + + + Care Team Providers + +------+ + | Care Shot Man Name | Role | Phone | + +------+ + | Adriano Patrick MD | PCP | | + +------+ + Encounter Details +--------+ + + + + | Date | Type | Department | Care Team | Description | +--------+ + + + + | 05/16/ | Orders Only | [facility] | Provider, | | | 2018 | | SYSTEM GENERIC OP | MD [address] | | | | | CONVERSION [address] | [address] | | | | | [address] [place], [place] | [place] [address] | | | | | [address] | | | | | | [phone] | | | +--------+ + + + [...]
--- OUTSIDE RECORDS SUMMARY | ~2020-07-01 | XMS | Encounter Summary ---
Demographics + + + | Address | [address] [facility] | | | [place] [address] | + + + | Home Phone [...] [place] | | | | | [address] | | + + + + + Care Team Providers + +------+ + | Care Dairy Tester Name | Role | Phone | + +------+ + PCP | Unavailable | + +------+ + Encounter Details +--------+ + + + + | Date | Type | Department | Care Team | Description | +--------+ + + + + | 01/26/ | Hospital | [facility] | [place], | | | 2011 | Encounter | MED CTR XRAY [address] | MD [address] | | | | | [place] | [place] | | | | | [place] [address] | [address] | | | | | [phone] | | | +--------+ + + + [...] Performed At | + + + | [facility] Diagnostic Imaging Department | [place] | | [address] [facility] | [facility] | | BILATERAL KNEES, THREE VIEWS: [...] Transcribed | | | Date/Time: 01/27/2012 17:18 Coding Consultant: REBECCA | | | <Electronically Signed by Willie Perry MD> 01/27/12 2744 | | + + + + + | Procedure Note | + + | Juan, Rad Conversion - 11/30/2013 5:03 PM [facility] | | Diagnostic Imaging Department [address] [place] [address] | | BILATERAL KNEES, THREE VIEWS: 01/27/2012 [...] 17:12 | |Transcribed Date/Time: 01/27/2012 17:18 | |Coding Consultant: | |<Electronically Signed by Willie Perry MD> [...]
--- OUTSIDE RECORDS SUMMARY | ~2020-07-01 | XMS | Encounter Summary ---
Demographics + + + | Address | [address] [facility] | | | [place] [address] | + + + | Home Phone [...] [place] | | | | | [address] | | + + + + + Care Team Providers + +------+ + | Care Telephone Exchange Operator Name | Role | Phone | + +------+ + | Adriano Ptarick MD | PCP | | + +------+ [...] [place] | | | | | | [address] | | | | | | [phone] | | | +--------+ + + + [...]
--- OUTSIDE RECORDS SUMMARY | ~2020-07-01 | XMS | Encounter Summary ---
Demographics + + + | Address | [address] [facility] [address] | | | [place] [address] | + + + | Home Phone [...] | Author | [facility] | | | and [...] [place] | | | | | [address] | | + + + + + Care Team Providers + +------+ + | Care Dumper Bulk System Name | Role | Phone | [...] | | [address] | [place], [place] | | | | | [place], [place] | [address] | | | | | [address] | | | | | | [phone] | | | +--------+ + + + [...] + + + | Patient Name: Cindy Arntd Date of : 1955 | | | [...] 0.83 m/s | | | MV Dec [place]: 2.85 m/s2 MV DecT: 282.89 ms MV E Teodoro: 0.80 | | | m/s MV E/A Ratio: 0.96 E/E' Sept: 12.59 E' Lat: 0.08 m/s | | | E' Sept: 0.06 m/s RAP: 10 mmHg RV S': 0.11 m/s RVSP: | | | 27.96 mmHg TR maxP.96 mmHg TR Vmax: 2.11 m/s | | | Core Drill Operator: Authenticated by: Desiree Peterson MD Report Date/Time: | | | -- 87_[id number]_3:31:1 | | + + + + + [...] (A-L): 19.60 | | ml/m2LAAs A2C: 15.44 [id number] A-L A2C: 43.84 mlLAESV MOD A2C: 42.12 mlLALs A2C: | | 4.61 cmLAAs A4C: 14.18 [id number] A-L A4C: 38.73 mlLAESV MOD A4C: 37.04 mlLALs A4C: | | 4.41 cmRAAs: 12.15 [id number] A-L: 28.54 mlRAESV MOD: 28.66 mlRALs: 4.39 | | cmTAPSE: 2.42 cmAV Env.Ti: 293.94 msAV maxP.18 mmHgAV meanP.09 mmHgAV | | Vmax: 1.88 m/Eddie Vmean: 1.25 m/Eddie VTI: 36.84 cmAVA Vmax: 2.06 cm2AVA (VTI): | | 2.24 mt5GYOY Vmax: 0.00 cm2/m2AVAI (VTI): 0.00 cm2/m2LVOT Env.Ti: 299.59 msLVOT | | maxP.52 mmHgLVOT meanP.65 mmHgLVSI Dopp: 38.55 ml/m2LVSV Dopp: 82.89 | | mlLVOT Vmax: 1.27 m/sLVOT Vmean: 0.91 m/sLVOT VTI: 27.27 cmMV A Teodoro: 0.83 m/sMV | | Dec [place]: 2.85 m/s2MV DecT: 282.89 msMV E Teodoro: 0.80 m/sMV E/A Ratio: 0.96E/E' | | Sept: 12.59E' Lat: 0.08 m/sE' Sept: 0.06 m/sRAP: 10 mmHgRV S': 0.11 m/sRVSP: | | 27.96 mmHgTR maxP.96 mmHgTR Vmax: 2.11 m/s Core Drill Operator:Authenticated by: | | Desiree Peterson MDReport Date/Time: -- 71_[id number]_9:31:1 IMPRESSION: 1. Overall left | | ventricular [...] A Teodoro: 0.83 m/s | |MV Dec [place]: 2.85 m/s2 | |MV DecT: 282.89 ms | |MV E Teodoro: 0.80 m/s | |MV E/A Ratio: 0.96 | |E/E' Sept: 12.59 | |E' Lat: 0.08 m/s | |E' Sept: 0.06 m/s | |RAP: 10 mmHg | |RV S': 0.11 m/s | |RVSP: 27.96 mmHg | |TR maxP.96 mmHg | |TR Vmax: 2.11 m/s | | | |Core Drill Operator: | |Authenticated by: Desiree Peterson MD | |Report Date/Time: -- 09_[id number]_7:31:1 | | | |IMPRESSION: | |1. Overall [...]
--- OUTSIDE RECORDS SUMMARY | ~2020-07-01 | XMS | Encounter Summary ---
Demographics + + + | Address | [address] [facility] [address] | | | [place] [address] | + + + | Home Phone [...] [place] | | | | | [address] | | + + + + + Care Team Providers + +------+ + | Care Pc Tech Name | Role | Phone | [...] [place] | | | | | | [address] | | | | | | [phone] | | | +--------+ + + + [...]
--- OUTSIDE RECORDS SUMMARY | ~2020-07-01 | XMS | Encounter Summary ---
Demographics + + + | Address | [address] [facility] | | | [place] [address] | + + + | Home Phone [...] [place] | | | | | [address] | | + + + + + Care Team Providers + +------+ + | Care Copyright Clerk Name | Role | Phone | + +------+ + | Natalee Andersen NP | PCP | | + +------+ + Encounter Details +--------+---------+ + + + | Date | Type | Department | Care Team | Description | +--------+---------+ + + + | 06/25/ | Surgery | [facility] | Frandy Teresa, | Canceled | | 2013 | | MED CTR OR INTRA OP | DO [address] | PROCEDURE NOT | | | | [address] | [address] [place], [place] | PERFORMED | | | | [place], [place] | [address] | | | | | [address] | | | | | | [phone] | | | +--------+---------+ + + + [...] + + + +---------+ + + | Baldwin-3 Fatty | Take 1,000 mg by [...] this en counter H&P Notes ONBRUCE ABREU [facility] - 06/21/2014 12:00 AM PDT 14 [...] MD at 06/26/2014 8:05 AM PDTONBRUCE ABREU [facility] - 06/26 12:00 AM PDT NBRUCE ZAMORA N [facility] - 06/26/2014 12:00 AM PDT NBASE SCAN [facility] - 06/12/2014 12:00 AM PDTElectronically signed by Mariah Schulte at 06/12 7:30 AM PDTONBASE SCAN [facility] - 06/11/2014 12:00 AM PDT documented in this encounter Miscellaneous Notes Miscellaneous - ONBASE SCAN [facility] - 06/26/2014 12:00 AM PDT lan [...] stenosis, lumbar region, without neurogenic claudication ). Public Health Technologist visit is in response to an electronic spiritual care consult request. Patient wa s resting comfortably in bed; she was attended by her mom and dad - both sate nearby and see med very attentive and supportive. Cindy is Rastafari, attends [employer], and is strong in her rangel. She is excited about taking care of her back problem and fe els very secure in Dr. Teresa's care. She welcomed prayer, and expressed appreciation for th visit. Follow up with regular visits, emotional and spiritual support. iscellaneo us - ONBASE SCAN [facility] - 06/25/2014 12:00 AM PDTElectronically signed [...] | [facility] | | | Slovenian | RATE,ESTIMATED | | MEDICAL | | | | mL/min/1.73c8Bshy than | | CENTER - | | [...] + | [facility] | [address] | [place] | [phone] | | [facility] | | [address] | | | - LABORATORY | | | | + + + + + | [facility] | [address] | [place] | | | [facility] | | [address], [facility] | | | - [...] + | [facility] | [address] | [place], [place] | [phone] | | [facility] | | [address] | | | - LABORATORY | | | | + + + + + | [facility] | [address] | [place], [place] | | | [facility] | | [address] | | | - LABORATORY [...] + | [facility] | [address] | [place] | [phone] | | [facility] | | [address] | | | - LABORATORY | | | | + + + + + | [facility] | [address] | [place] | | | [facility] | | [address] | | | - LABORATORY [...] | [place] | | | [facility] | | [address] | | | - BLOOD BANK | [...] + | [facility] | [address] | [place] | [phone] | | [facility] | | [address] | | | - LABORATORY | | | | + + + + + | [facility] | [address] | [place], [place] | | | [facility] | | [address] | | | - LABORATORY [...]
--- OUTSIDE RECORDS SUMMARY | ~2020-07-01 | XMS | Clinical Summary ---
Demographics + + + | Address | [address] [facility] [address] | | | [place] [address] | + + + | Home Phone [...] [place] | | | | | [address] | | + + + + + Care Team Providers + +------+ + | Care It Account Manager Name | Role | Phone [...] | | | | e | | (Thumb Reading VERIO FLEX | | | | | [...] | | | | | | A-fib ([facility]); | | | | | [...] (Cancel | 2019 | | | Vanessa, GAS WELDER APPRENTICE | appointment) | +--------+ + + + [...] A-fib | | | | | | ([facility]); Mild | | | | | | hyperlipidemia; | | | | | | Benign essential | | | | | | HTN; Poorly | | | | | | controlled type 2 | | | | | | diabetes mellitus | | | | | | ([facility]); Syncope, | | | | [...] | | | | | | type ([facility]); Rapid | | | | [...] | [employer] - | | 04/02/ | [id number] | | 5ccImplanted: Qty: 1 on | | Spine | MEDT | | 2019 | | | 07/02/2014 by Frandy Teresa | | Lumbar | | | | /[id number] | | DO Ronak at [facility] | | | | | | 6-020 | | [facility] | | | | | | / | + +------+--------+ +--------+--------+--------+ | Graft Infuse Bone Kit Xxs - | | N/A: | SOFAMOR | | 01/21/ | [id number] | | [id number]: Qty: 1 on | | Spine | DANEK - DIV | | 2014 | 0 / | | 07/02/2014 by Frandy Teresa | | Lumbar | [employer] | | | /[id number] | | A, DO at [facility] | | | - SFDK | | | 06AAH | | [facility] | | | | | | | + +------+--------+ +--------+--------+--------+ | Imp Spn Spcr Cpstn 8x26mm - | | N/A: | SOFAMOR | | 01/11/ | [id number] | | [id number]: Qty: 1 on | | Spine | DANEK - DIV | | 2021 | 6 / | | 07/02/2014 by Frandy Teresa | | Lumbar | [employer] | | | /[id number] | | A, DO at [facility] | | | - SFDK | | | 928 | | [facility] | | | | | | | + +------+--------+ +--------+--------+--------+ | Set Scrw Ns G5 Brk Off Ti | | N/A: | SOFAMOR | | | [id number] | | 4.75 - [id number]: | | Spine | DANEK - DIV | | | 0 / / | | Qty: 4 on 07/02/2014 by | | Lumbar | [employer] | | | | | Frandy Teresa DO at [facility] | | | - SFDK | | | | | [facility] | | | | | | | | [place] | | | | | | | + +------+--------+ +--------+--------+--------+ | RodImplanted: Qty: 1 on | | N/A: | | | | [id number] | | 07/02/2014 by Frandy Teresa | | Spine | | | | 540 / | | DO Ronak at [facility] | | Lumbar | | | | / | | [facility] | | | | | | | + +------+--------+ +--------+--------+--------+ | RodImplanted: Qty: 1 on | | N/A: | MEDTROL - | | | [id number] | | 07/02/2014 by Frandy Teresa | | Spine | MDTR | | | 545 / | | DO Ronak at [facility] | | Lumbar | | | | / | | [facility] | | | | | | | + +------+--------+ +--------+--------+--------+ | Screw 7.5x50mm Sextant - | | N/A: | MEDTRONIC - | | | [id number] | | [id number]: Qty: 1 on | | Spine | MEDT | | | [id number] | | 07/02/2014 by Frandy Teresa | | Lumbar | | | | / / | | DO Ronak at [facility] | | | | | | | | [facility] | | | | | | | + +------+--------+ +--------+--------+--------+ | Cannulated ScrewImplanted: | | N/A: | MEDTROL - | | | [id number] | | Qty: 1 on 07/02/2014 by | | Spine | MDTR | | | [id number] | | Frandy Teresa DO at [facility] | | Lumbar | | | | / / | | [facility] | | | | | | | | CENTER | | | | | | | + +------+--------+ +--------+--------+--------+ | Cannulated ScrewImplanted: | | N/A: | MEDTRONIC - | | | [id number] | | Qty: 1 on 07/02/2014 by | | Spine | MEDT | | | [id number] | | Frandy Teresa DO at [facility] [...] | | | | | DESIREE DONNELLY ([id number]) on | | | | | | [...] +--------+ +---------+--------+ | MEDICARE | MEDICA | [id number] | 02/22/20 | [phone] | | Medica | | | RE | | 09-Pre | 5 | | re | | | PART A | | sent | | | | | | AND B | | | | | | + +--------+ +--------+ +---------+--------+ | MEDICARE | MEDICA | [id number] | 02/22/20 | [phone] | | Medica [...] [place] | | | 1 (Home) | [address] | + +--------+ +--------+ + + | Cindy Arndt | Person | Self | [birth year] | [address] | | | al/Fam | | 1955 | [phone] | [address] [place], [place] | | | [place] | | | 1 (Home) | [address] | + +--------+ +--------+ + + | Cindy Arndt | Person | Self [birth year] | [address] | | | al/Fam | | 1955 | [phone] | [address] [place], [place] | | | [place] | | | 1 (Home) | [address] | + +--------+ +--------+ + + Advance Directives + + + + + | Type | Date Recorded | Patient | Explanation | | | | Appellate Court Judge | | + + + + + | Power of | | | | | Abrasive Grinder | | | | + + + [...]
--- OUTSIDE RECORDS SUMMARY | ~2020-07-01 | XMS | Encounter Summary ---
Demographics + + + | Address | [address] [facility] [address] | | | [place] [address] | + + + | Home Phone [...] [place] | | | | | [address] | | + + + + + Care Team Providers + +------+ + | Care Harbor Police Lieutenant Name | Role | Phone | + +------+ + PCP | Unavailable | + +------+ + Encounter Details +--------+ + + + + | Date | Type | Department | Care Team | Description | +--------+ + + + + | 02/16/ | Hospital | [facility] | | | | 1994 | Encounter | MED CTR LABORATORY | | | | | | [address] | | | | | | [place] | | | | | | [address] | | | | | | [phone] | | | +--------+ + + + [...]
--- OUTSIDE RECORDS SUMMARY | ~2020-07-01 | XMS | Encounter Summary ---
Demographics + + + | Address | [address] [facility] [address] | | | [place] [address] | + + + | Home Phone [...] [place] | | | | | [address] | | + + + + + Care Team Providers + +------+ + | Care Vat Skimmer Name | Role | Phone | + [...] | SLEEP DISORDER 401 | [address] | | | | | [address] | [place] | | | | | [place] [address] | [address] | | | | | [phone] | | | +--------+ + + + [...] PDTTjt was last seen in our [facility] on 04/30/2015. He did not cancel [...] eleph one Encounter - Gail Cadet, Senior Quantity Surveyor - 07/15/2016 8:37 AM PDTCalled to resched ule patient's no show appointment unable to contact all numbers are disconnected. Electronic ally signed by Leidy Wong at 07/15/2016 8:37 AM PDTdocumented in this encounter Plan of Treatment Not on filedocumented as of this encounter Visit Diagnoses Not on filedocumented in this encounter"
--- OUTSIDE RECORDS SUMMARY | ~2020-07-01 | XMS | Encounter Summary ---
Demographics + + + | Address | [address] [facility] | | | [place] [address] | + + + | Home Phone [...] [place] | | | | | [address] | | + + + + + Care Team Providers + +------+ + | Care Blocker Hand Name | Role | Phone | + +------+ + | Natalee Andersen NP | PCP | | + +------+ + Encounter Details +--------+ + + + + | Date | Type | Department | Care Team | Description | +--------+ + + + + | 06/25/ | Hospital | [facility] | Frandy Teresa, | Diabetes mellitus | | 2014 | Encounter | MED CTR OR INTRA OP | DO [address] | ([facility]) (Primary Dx) | | | | [address] | [address] [place] [employer], [place] | | | | | [place], [place] | [address] | | | | | [address] | | | | | | [phone] | | | +--------+ + + + [...] + + + +---------+ + + | [place]-3 Fatty | Take 1,000 mg by | [...] MD at 06/26/2014 8:05 AM PDTONBASE SCAN [facility] - 06/26 12:00 AM PDT NBASE SERA N [facility] - 06/26/2014 12:00 AM PDT NBASE SCAN [facility] - 06/12/2014 12:00 AM PDTElectronically signed by Mariah Schulte at 06/12 7:30 AM PDTONBASE SCAN [facility] - 06/11/2014 12:00 AM [...] stenosis, lumbar region, without neurogenic claudication ). Quality Measurement Specialist visit is in response to an electronic spiritual care consult request. Patient wa s resting comfortably in bed; she was attended by her mom and dad - both sate nearby and see med very attentive and supportive. Cindy is Jain, attends [employer], and is strong [...] | mL/min/1.73m2 | [facility] | | | [place] | RATE,ESTIMATED | | MEDICAL | | | | mL/min/1.63g8Eyry than | | CENTER - | | [...] + | [facility] | [address] | [place] | [phone] | | [facility] | | [address] | | | - LABORATORY | | | | + + + + + | [facility] | [address] | [place] | | | [facility] | | [address], [facility] | | | - [...] + | [facility] | [address] | [place] | [phone] | | [facility] | | [address] | | | - LABORATORY | | | | + + + + + | [facility] | [address] | [place], [place] | | | [facility] | | [address], [facility] | | | - [...] + | [facility] | [address] | [place] | [phone] | | [facility] | | [address] | | | - LABORATORY | | | | + + + + + | [facility] | [address] | [place] | | | [facility] | | [id number] | | | - [...] + | [facility] | [address] | [place] | | | [facility] | | [address] | | | - BLOOD BANK | [...] + | [facility] | [address] | [place], [place] | [phone] | | [facility] | | [address] | | | - LABORATORY | | | | + + + + + | [facility] | [address] | [place], [place] | | | [facility] | | [address] [place] [address] | | | - LABORATORY | | [...]
--- OUTSIDE RECORDS SUMMARY | ~2020-07-01 | XMS | Encounter Summary ---
Demographics + + + | Address | [address] [facility] | | | [place] [address] | + + + | Home Phone [...] [place] | | | | | [address] | | + + + + + [...] | | | | | | | [address] | | | | | | | Phone: | | | | | | | [phone] | | | | | | | Fax: | | | | | | | [phone] | | +--------+ + + + + + Reason for Visit + + + | Reason | Comments | + + + | Follow-up | 4 Week PO | + + + Encounter Details +--------+---------+ + + + | Date | Type | Department | Care Team | Description | +--------+---------+ + + + | 07/25/ | Office | [facility] | Frandy Teresa, | Lumbar spondylosis | | 2013 | Visit | NEUROSURGERY [address] | DO [address] | (Primary Dx); S/P | | | | [address] | [address] [place], [place] | lumbar fusion | | | | [place], [place] | [address] | | | | | [address] | | | | | | [phone] | | | +--------+---------+ + + + [...] the original. Frandy Teresa DO [address] [facility] [place] [address] FAX: NEUROSURGERY SURGICAL FOLLOW-UP CHIEF COMPLAINT: Chief [...] Take 15 mg by mouth nightl y. Mondamin-3 Fatty Acids (FISH OIL CONCENTRATE) 1000 MG [...] + | MISCELLANEOUS LAB | | | [phone] | + +---------+ + + | MISCELANIOUS LAB | | | [phone] | + +---------+ + + documented in this encounter Visit Diagnoses + + | Diagnosis | + + | Lumbar spondylosis - Primary Lumbosacral spondylosis without myelopathy | + + | S/P lumbar fusion Arthrodesis status | + + documented in this encounter
--- OUTSIDE RECORDS SUMMARY | ~2020-07-01 | XMS | Encounter Summary ---
Demographics + + + | Address | [address] [facility] [address] [facility] [address] [facility] | | | [place] [address] | + + + | Home Phone [...] [place] | | | | | [address] | | + + + + + Care Team Providers + +------+ + | Care Engagement Engineer Name | Role | Phone | [...] + + | 02/06/ | Telephone | [facility] | BrittDora | Patient Concerns | | 2020 | | CARDIOLOGY [place] | CAROLINE Mendez [address] | | | | | [address] | [address] | | | | | [address] | [place] [address] | | | | | [place] | [phone] | | | | | [address] | | | | | | [phone] | | | +--------+ + + + [...] other note. El ectronically signed by CAROLINE Tasi at 02/07/2020 3:22 PM PDTdocumented in this encounter Plan of Treatment Not on filedocumented as of this encounter Visit Diagnoses Not on filedocumented in this encounter"
--- OUTSIDE RECORDS SUMMARY | ~2020-07-01 | XMS | Encounter Summary ---
Demographics + + + | Address | [address] [facility] | | | [place] [address] | + + + | Home Phone [...] [place], [place] | | | | | [address] | | + + + + + Care Team Providers + +------+ + | Care Field Sales Representative Name | Role | Phone | + +------+ + PCP | Unavailable | + +------+ + Encounter Details +--------+ + + + + | Date | Type | Department | Care Team | Description | +--------+ + + + + | 04/16/ | Hospital | [facility] | | | | 1997 | Encounter | MED CTR XRAY [address] | | | | | [address] [place] | | | | | | [place] [address] | | | | | | [phone] | | | +--------+ + + + [...]
--- OUTSIDE RECORDS SUMMARY | ~2020-07-01 | XMS | Encounter Summary ---
Demographics + + + | Address | [address] [facility] [address] | | | [place] [address] | + + + | Home Phone [...] [place] | | | | | [address] | | + + + + + Care Team Providers + +------+ + | Care Software Engineering Specialist Name | Role | Phone | + +------+ + PCP | Unavailable | + +------+ + Encounter Details +--------+ + + + + | Date | Type | Department | Care Team | Description | +--------+ + + + + | 08/21/ | Hospital | [facility] | | | | 1996 | Encounter | MED CTR LABORATORY | | | | | | [address] | | | | | | [place] | | | | | | [address] | | | | | | [phone] | | | +--------+ + + + [...]
--- OUTSIDE RECORDS SUMMARY | ~2020-07-01 | XMS | Encounter Summary ---
Demographics + + + | Address | [address] [facility] [address] | | | [place] [address] | + + + | Home Phone [...] [place] | | | | | [address] | | + + + + + Care Team Providers + +------+ + | Care Supervisor Evaporator Name | Role | Phone | + [...] | | | spondylolist | | [address] | | | | | hesis | | [place], | | | | | Spinal | | [place] [address] | | | | | stenosis, | | Phone: | | | | | lumbar | | [phone] | | | | | region, | | Fax: | | | | | without | | [phone] | | | | | neurogenic | [...] | | | | | | AL ARTHDSIS | | | | | | [...] | | | | | | ION AL | | | | | | [...] | | | | | | SEG AL | | | | | | [...] + + | 07/02/ | Surgery | [facility] | Frandy Teresa, | MIS L5-S1 | | 2013 | | MED CTR OR INTRA OP | DO [address] | TRANSFORAMINAL | | | | [address] | [address] | LUMBAR INTERBODY | | | | [place], [place] | [address] | FUSION | | | | [address] | | | | | | [phone] | | | +--------+---------+ + + + [...] Stable for discharge to SNF. DISPOSITION: SNF ([facility]) DISCHARGE MEDICATIONS Medications prior [...] Take 15 mg by mouth nightl y. Beaumont-3 Fatty Acids (FISH OIL CONCENTRATE) 1000 MG [...] + + + +---------+ + + | Beaumont-3 Fatty | Take 1,000 mg by | [...] Lynn PA-C - 07/04/2014 7:43 AM PDT [facility] PROGRESS NOTE Pt. Name/Age/: Cindy Arndt 58 y.o. 1955 Med. Record Number: [id number] Date of admission: 07/02/2014 Subjective: The patient [...] home medications. D/C plan: Home tomorrow with [facility]. D/c mari drain and riley cath today. D/c animal husbandman. Patient Active Problem List Diagnosis LUMBAR DISC [...] PA-C - 07/03/2014 7:13 AM PDT . [facility] and Services PROGRESS NOTE Pt. Name/Age/: Cindy Arndt 58 y.o. 1955 Med. Record Number: [id number] Date of admission: 07/02/2014 Subjective: The patient [...] Nicole, 07/03/2014 7:13 [facility] on [facility] RRT - 07/03/2014 6:50 AM [...] signed by: Frandy Teresa DO, 07/02/2014 11:15 [facility] signed by Frandy Teresa DO at 06/2014 11:15 AM PDTDreyFrandy tim DO - 07/02/2014 11:15 AM [id number] [facility], [address] [place] [address] FAX: NEUROSURGERY HISTORY AND PHYSICAL EXAMINATION CHIEF [...] Take 15 mg by mouth nigh tly. Beaumont-3 Fatty Acids (FISH OIL CONCENTRATE) 1000 MG [...] Intrinsics 5 5 Ulnar Intrinsics 5 5 Custodial Manager Strength 5 5 Hip Flexion 5 [...] documented in this en counter Procedure Notes [facility] - 07/12/2014 12:00 AM PDT 14 1:45 PM [facility] - 07/04/2014 12:00 AM PDT [facility] - 07/02/2014 12:00 AM PDT documented in this encounter Miscellaneous Notes Plan of Care - [facility] - 07/12/2014 12:00 AM PDT iscellaneous - [facility] 07/12/2014 12:00 AM PDTElec tronically signed by Mariah Schulte at 07/12/2014 1:45 PM PDTMiscellaneous - [facility] - 07/12/2014 12:00 AM PDT i scellaneous - [facility] 07/12/2014 12:00 AM PDT lan of Care - Germaine Louis RN - 07/05/2014 5:00 PM PDTProb honey: General Plan of Care (Adult, Obstetrics) Goal: Care Plan Shift Summary & Review . Outcome: Adequate for Discharge Date Met: 07/05/14 [facility] Did not feel safe [...] TBD) Equipment Recommendations: tub bench;hand held shower head;screen printing machine loader unloader;comfort height toilet ( pt. has all necessary [...] PA-C Consultants: none PCP: Natalee Andersen [facility] transferring to: [facility] Provider after transfer: PCP and Dr. Frandy Teresa CODE STATUS: [x] Attempt CPR [] Do not resuscitate If patient is pulseless and not breathing, RN/THIOKOL OPERATOR may pronounce . Advanced Directives included: [] [...] for this patient. Diet: [] As tolerated DRIFT MINER may upgrade or downgrade diet as condition Indicates. [x] RN may downgrade diet as indicated. Type: [] Continue current diet of: Diet and Supplements Diet DIET CONSISTENT CARBOHYDRATE Number of Occurrences: -1 Days [] Other: Consistency/Precautions: [] Whole [] Thin Liquids [] Cut-up [] [place] Thick [] Advanced Chopped [] Honey Thickened [] Chopped [] Advanced Ground [] 1:1 feedings [] Ground/Pureed [] Other: Tube Feedings: [] PEG [] GT [] JT [] NGT [] Formula type: (Fire Department Marine Engineer may change/substitute if indicated). [] Continuous Rate: [...] & Management for: ____same as above [] DRIFT MINER Evaluation &Management for: [] Other: Wound/Skin Care: [...] Take 15 mg by mouth ni linda. Beaumont-3 Fatty Acids (FISH OIL CONCENTRATE) 1000 MG [...] Orders/Instructions: Physician's signature:__Chris Nicole PA-C 07/05/2014 13:18 [facility] NURSING FAC[facility] USE ONLY: [] [...] position change. Sitting at EOB on arrival, TRIAL COURT JUSTICE pres ent. Pt. donned LSO brace, stood [...] of endurance. When patient is walking [facility] with a regular FWW she has to stop frequently and states she feels very weak, like sh e may fall. Patient lives alone. Outpatient prescriptions are filled at [facility] in [facility]. Electronically signed by: Franca Narvaez RN 07/05/2014 10:43 lan of [facility] - 07/05/2014 10:39 AM PDTFaxed referral to [facility] Stout and Lidia Tran. [place] : [id number] and [place]: [id number] Electronically signed by: Layne Collado 07/05/2014 10:40 Received a call from [facility]. They can accept Cindy. Received a call from [facility] and they can't accept Cindy. Tanna from [facility] called and they don't have any beds at this time Electronically signed by: Layne Collado 07/05/2014 12:22 Started the SNF packet. Electronically signed by: Layne Collado 07/05/2014 12:56 lan of [facility] - Sandhya Benites RN - [...] TBD) Equipment Recommendations: tub bench;hand held shower head;screen printing machine loader unloader;comfort height toilet ( pt. has all necessary equipment) Planned Interventions: ADL retraining;transfer training Patient Status/Goals Reflects last filed data of patient status; may be from multiple contributors. Grooming: Status: did not occur today Assist: Utilizes: STG: Status: New Goal:modified independent LTG: Status: Goal: UE Dressing: Status: SBA Assist: Utilizes: STG: Status: Goal: LTG: Status: Goal: LE Dressing: Status: SBA Utilizes: screen printing machine loader unloader STG: Status: New Goal: modified independent LTG: [...] bed mobil ity. Pt has been using WOUND CARE PHYSICIAN and pain pills during the night. Zofran [...] by herself in a small apartment in [place]. Patient states she has her apartment set [...] to come from [facility] in [place]. She states the Said she might benefit [facility] upon discharge. She would like me to contact [facility] to giv e them a heads up. I called and spoke to Summer at [facility] , told her patients PCP i [...] Pt. resting in bed on arrival, used WOUND CARE PHYSICIAN x 2 during session. SPL /10. Pt. 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 Sidelying to sit [...] TBD) Equipment Recommendations: tub bench;hand held shower head;screen printing machine loader unloader;comfort height toilet ( pt. has all necessary [...] & Review . Outcome: Progressing Pt using WOUND CARE PHYSICIAN and PO pain pills, c/o numbness on [...] and on a continuous oximeter for her WOUND CARE PHYSICIAN. She was unable to do her IS because o f the medications. She has the IS at bedside with a goal of 2400. She did not require additi onal respiratory care throughout the evening. p Note - Frandy Teresa, DO - 07/02/2014 2:25 PM PDTDATE: 07/02/2014 SURGEON: Frandy Teresa MD. CANDY CUTTER MACHINE: ZANE Oh PREOPERATIVE DIAGNOSES 1. Spondylolisthesis, L5-S1. [...] x 26 mm Capstone PEEK cage from [employer] was chosen. It was filled with Infus [...] Note Cindy Arndt 58 y.o. female 1955 [id number] Proc. Date 07/02/2014 Preop Dx Spondylolisthesis L5-S1 Postop Dx same Procedure Procedure(s):MIS L5-S1 TRANSFORAMINAL LUMBAR INTERBODY FUSION Anesthesia General Surgeon Frandy Teresa DO Engraver Steel Plate ZANE Oh EBL 100 mL Findings Findings consistent with scheduled procedure. No other abnormalities found. Complications none Specimens * No specimens in log * Drains Electronically signed by: Frandy Teresa DO 07/02/2014 14:22 [facility] documented in this en counter [...] + | [facility] | [address] | [place] | [phone] | | [facility] | | [address] | | | - LABORATORY | | | | + + + + + | [facility] | [address] | [place] | | | [facility] | | [address] | | | - LABORATORY [...] + | [facility] | [address] | [place], [place] | [phone] | | [facility] | | [address] | | | - LABORATORY | | | | + + + + + | [facility] | [address] | [place], [place] | | | [facility] | | [address] | | | - LABORATORY [...] + | [facility] | [address] | [place] | [phone] | | [facility] | | [address] | | | - LABORATORY | | | | + + + + + | [facility] | [address] | [place], [place] | | | [facility] | | [address], [facility] | | | [...] + | [facility] | [address] | [place] | [phone] | | [facility] | | [address] | | | - LABORATORY | | | | + + + + + | [facility] | [address] | [place], [place] | | | [facility] | | [address] | | | - LABORATORY [...] [address] | [place] | [phone] | | [facility] | | [address] | | | - LABORATORY | | | | + + + + + | [facility] | [address] | [place] | | | [facility] | | [address] | | | - LABORATORY [...] + | [facility] | [address] | [place], [place] | [phone] | | [facility] | | [address] | | | - LABORATORY | | | | + + + + + | [facility] | [address] | [place], [place] | | | [facility] | | [address] | | | - LABORATORY | [...] [address] | [place] | [phone] | | [facility] | | [address] | | | - LABORATORY | | | | + + + + + | [facility] | [address] | [place] | | | [facility] | | [address], [facility] | | | [...] + | [facility] | [address] | [place], [place] | [phone] | | [facility] | | [address] | | | - LABORATORY | | | | + + + + + | [facility] | [address] | [place], [place] | | | [facility] | | [id number] [place] [address] | | | - LABORATORY | | [...] + | [facility] | [address] | [place], [place] | [phone] | | [facility] | | [address] | | | - LABORATORY | | | | + + + + + | [facility] | [address] | [place], [place] | | | [facility] | | [address] | | | - LABORATORY [...] | of hardware for posterior fusion from [id number] S1 with interbody hardware at L5-S1. The [...] + | MISCELLANEOUS LAB | | | [phone] | + +---------+ + + | MISCELANIOUS LAB | | | [phone] | + +---------+ + + POC Glucose [...] + | [facility] | [address] | [place], [place] | [phone] | | [facility] | | [address] | | | - LABORATORY | | | | + + + + + | [facility] | [address] | [place] | | | [facility] | | [address] | | | - LABORATORY [...] + | [facility] | [address] | [place] | [phone] | | [facility] | | [address] | | | - LABORATORY | | | | + + + + + | [facility] | [address] | [place], [place] | | | [facility] | | [address] | | | - LABORATORY [...] [address] | [place] | [phone] | | [facility] | | [address] | | | - LABORATORY | | | | + + + + + | [facility] | [address] | [place] | | | [facility] | | [address], [facility] | | | [...] + | [facility] | [address] | [place] | [phone] | | [facility] | | [address] | | | - LABORATORY | | | | + + + + + | [facility] | [address] | [place], [place] | | | [facility] | | [address], [facility] | | | [...] [address] | [place] | [phone] | | [facility] | | [address] | | | - LABORATORY | | | | + + + + + | [facility] | [address] | [place] | | | [facility] | | [address] | | | - LABORATORY [...] [facility] | | [address] | | | - BLOOD BANK | [...] mLs | | Surgical | | 1:200,000 0.25-1:178491 % | | 14 12:42 | | [...]
--- OUTSIDE RECORDS SUMMARY | ~2020-07-01 | XMS | Encounter Summary ---
Demographics + + + | Address | [address] [facility] [address] | | | [place] [address] | + + + | Home Phone [...] [place] | | | | | [address] | | + + + + + Care Team Providers + +------+ + | Care Cnc Specialist Name | Role | Phone | [...] | | | | | | [facility] [place] | | | | | | [address] | | | | | | [phone] | | | +--------+ + + + [...]
--- OUTSIDE RECORDS SUMMARY | ~2020-07-01 | XMS | Encounter Summary ---
Demographics + + + | Address | [address] [facility] [address] | | | [place] [address] | + + + | Home Phone [...] [place] | | | | | [address] | | + + + + + Care Team Providers + +------+ + | Care Manager Animal Name | Role | Phone | + +------+ + | Basim Bolanos MD | PCP | | + +------+ + Encounter Details +--------+ + + + + | Date | Type | Department | Care Team | Description | +--------+ + + + + | 01/24/ | Abstract | [facility] [place] | [facility], | | | 2012 | | GASTROENTEROLOGY | [place]O Thomas [address] | | | | | [address] [place] | [address] | | | | | [address] [place], [place] | [place], [place] | | | | | [address] | [address] | | | | | [phone] | | | +--------+ + + + [...]
--- OUTSIDE RECORDS SUMMARY | ~2020-07-01 | XMS | Encounter Summary ---
Demographics + + + | Address | [address] [facility] | | | [place] [address] | + + + | Home Phone [...] [place] | | | | | [address] | | + + + + + [...] [place] | | | | | | [address] | | | | | | [phone] | | | +--------+ + + + [...]
--- OUTSIDE RECORDS SUMMARY | ~2020-07-01 | XMS | Encounter Summary ---
Demographics + + + | Address | [address] [facility] [address] | | | [place] [address] | + + + | Home Phone [...] [place] | | | | | [address] | | + + + + + Care Team Providers + +------+ + | Care Acute Care Assistant Name | Role | Phone [...] + + | 08/14/ | Documentati | [facility] | Katharine Moncada, | Other (urgent | | 2019 | on | CARDIOLOGY GENESIS | Technologist | report) | | | | [address] | | | | | | [place] | | | | | | [address] | | | | | | [phone] | | | +--------+ + + + [...]
--- OUTSIDE RECORDS SUMMARY | ~2020-07-01 | XMS | Encounter Summary ---
Demographics + + + | Address | [address] [facility] | | | [place] [address] | + + + | Home Phone [...] [place] | | | | | [address] | | + + + + + Care Team Providers + +------+ + | Care Game Producer Name | Role | Phone | + +------+ + PCP | Unavailable | + +------+ + Encounter Details +--------+ + + + + | Date | Type | Department | Care Team | Description | +--------+ + + + + | 05/23/ | Hospital | [facility] | [place], | | | 2011 | Encounter | MED CTR XRAY [address] | MD [address] | | | | | [place] | [place] | | | | | [place] [address] | [address] | | | | | [phone] | | | +--------+ + + + [...] + + + +---------+ + + | Cromwell-3 Fatty | Take 1,000 mg by | [...] | [facility] | [facility] | | [address], [facility] | [facility] | | LUMBAR SPINE MR WITHOUT [...] Transcribed Date/Time: | | | 05/23/2012 16:55 Airport Representative: <Electronically Signed | | | by Adriano Anne MD> 05/23/12 3691 | | + + + + + | Procedure Note | + + | Manohar Martinez Conversion - 11/30/2013 5:47 PM [facility] | | Diagnostic Imaging Department [address] [place] [address] | | LUMBAR SPINE MR WITHOUT CONTRAST, [...] 16:37 | |Transcribed Date/Time: 05/23/2012 16:55 | |Airport Representative: | |<Electronically Signed by Adriano Anne MD> [...]
--- OUTSIDE RECORDS SUMMARY | ~2020-07-01 | XMS | Encounter Summary ---
Demographics + + + | Address | [address] [facility] [address] | | | [place] [address] | + + + | Home Phone [...] [place] | | | | | [address] | | + + + + + Care Team Providers + +------+ + | Care Breast Splitter Name | Role | Phone | [...] | 10/25/ | Telephone | [facility] | Ashley Chávez | Other (Patient to | | 2019 | | CARDIOLOGY GENESIS Abad, Vehicle Dynamics Engineer | stay on the same | | | | [address] | | dose. ) | | | | [place] | | | | | | [address] | | | | | | [phone] | | | +--------+ + + + [...] Miscellaneous Notes Telephone Encounter - Ashley Chávez Vehicle Dynamics Engineer - 10/25/2019 8:44 AM PSTCall m cierra [...] Would not answer my calling her again. BRODY:SECURITY SUPERVISOR-AAMA. el ephone Encounter - Ashley Chávez Vehicle Dynamics Engineer - 10/25/2019 8:40 AM PST----- Mess age from Desiree Peterson DO sent at 10/24/2019 8:42 PM PST ----- Regarding: RE: Patient's Metoprolol. We can stay on the same dose of metoprolol for now. Thanks ----- Message ----- From: Ashley Chávez Vehicle Dynamics Engineer Sent: 10/23/2019 10:52 AM PST To: Desiree [...]
--- OUTSIDE RECORDS SUMMARY | ~2020-07-01 | XMS | Encounter Summary ---
Demographics + + + | Address | [address] [facility] | | | [place] [address] | + + + | Home Phone [...] [place] | | | | | [address] | | + + + + + Care Team Providers + +------+ + | Care Retail Merchandising Manager Name | Role | Phone | [...] [place] | | | | | | [address] | | | | | | [phone] | | | +--------+ + + + [...]
--- OUTSIDE RECORDS SUMMARY | ~2020-07-01 | XMS | Encounter Summary ---
Demographics + + + | Address | [address] [facility] | | | [place] [address] | + + + | Home Phone [...] [place] | | | | | [address] | | + + + + + Care Team Providers + +------+ + | Care Planning Lead Name | Role | Phone | [...] [address] | [address] [place], [place] | fusion | | | | [place], [place] | [address] | | | | | [address] | | | | | | [phone] | | | +--------+ + + + [...]
--- OUTSIDE RECORDS SUMMARY | ~2020-07-01 | XMS | Encounter Summary ---
Demographics + + + | Address | [address] [facility] | | | [place] [address] | + + + | Home Phone [...] [place] | | | | | [address] | | + + + + + Care Team Providers + +------+ + | Care Globe Mounter Name | Role | Phone | + +------+ + PCP | Unavailable | + +------+ + Encounter Details +--------+ + + + + | Date | Type | Department | Care Team | Description | +--------+ + + + + | 02/22/ | Hospital | [facility] | | | | 1996 | Encounter | MED CTR EMERGENCY | | | | | | CENTER [address] | | | | | | [place] | | | | | | [address] | | | | | | [phone] | | | +--------+ + + + [...]
--- OUTSIDE RECORDS SUMMARY | ~2020-07-01 | XMS | Encounter Summary ---
Demographics + + + | Address | [address] [facility] | | | [place] [address] | + + + | Home Phone [...] [place] | | | | | [address] | | + + + + + Care Team Providers + +------+ + | Care Operations Expert Name | Role | Phone | [...] + + | 07/10/ | Telephone | [facility] | Frandy Teresa, | Imaging Only (1 year | | 2014 | | NEUROSURGERY [address] | DO [address] | x-ray ) | | | | [address] | [address] [place], [place] | | | | | [place], [place] | [id number] | | | | | [address] | | | | | | [phone] | | | +--------+ + + + [...]
--- OUTSIDE RECORDS SUMMARY | ~2020-07-01 | XMS | Encounter Summary ---
Demographics + + + | Address | [address] [facility] [address] | | | [place] [address] | + + + | Home Phone [...] [place] | | | | | [address] | | + + + + + Care Team Providers + +------+ + | Care Civil Lawyer Name | Role | Phone | + +------+ + PCP | Unavailable | + +------+ + Encounter Details +--------+ + + + + | Date | Type | Department | Care Team | Description | +--------+ + + + + | 02/02/ | Hospital | [facility] | | | | 1997 | Encounter | MED CTR EMERGENCY | | | | | | CENTER [address] | | | | | | [place] | | | | | | [address] | | | | | | [phone] | | | +--------+ + + + [...]
--- OUTSIDE RECORDS SUMMARY | ~2020-07-01 | XMS | Encounter Summary ---
Demographics + + + | Address | [address] [facility] [address] | | | [place] [address] | + + + | Home Phone [...] [place] | | | | | [address] | | + + + + + Care Team Providers + +------+ + | Care Ex Assistant/Program Director Name | Role | Phone | [...] | | | | Back pain | Natlaee Hurst, | Frandy Simons DO | | | | | Procedures | [address] | [address] | | | | | NE OFFICE | | [address] | | | | | CONSULTATION | [address] | [place], [place] | | | | | NEW/ESTAB | [place], | [address] Phone: | | | | | PATIENT 60 | [place] [address] | [phone] | | | | | MIN | Phone: | Fax: | | | | | | [phone] | [phone] | | | | | | Fax: | | | | | | | [phone] | | +--------+--------+ + + + + Encounter Details +--------+---------+ + + + | Date | Type | Department | Care Team | Description | +--------+---------+ + + + | 05/02/ | Office | [facility] | Frandy Teresa, | Spondylolisthesis of | | 2013 | Visit | NEUROSURGERY [address] | DO [address] | lumbar region | | | | [address] | [address] [place], [place] | (Primary Dx); Lumbar | | | | [place], [place] | [address] | stenosis; Lumbar | | | | [address] | | radicular pain; | | | | [phone] | | Lumbago | +--------+---------+ + + [...] [facility], [address] [place], [place] [id number] FAX: NEUROSURGERY HISTORY AND PHYSICAL EXAMINATION CHIEF [...] Take 15 mg by mouth nightl y. [place]-3 Fatty Acids (FISH OIL CONCENTRATE) 1000 MG [...] no apparent deficits with short or exterminator termite memory. CRANIAL NERVES: II: Acuity is [...] Intrinsics 5 5 Ulnar Intrinsics 5 5 Polymerization Kettle Operator Strength 5 5 Hip Flexion 5 [...] encounter Miscellaneous Notes Miscellaneous - ONBASE SCAN [facility] - 05/02/2014 12:00 AM PDT iscellaneous - ONBASE SCAN [facility] - 05/02/2014 12:00 AM PDTEle ctronically signed by [facility] at 05/08/2014 8:56 AM PDTdocumented [...]
--- OUTSIDE RECORDS SUMMARY | ~2020-07-01 | XMS | Encounter Summary ---
Demographics + + + | Address | [address] [facility] | | | [place] [address] | + + + | Home Phone [...] [place], [place] | | | | | [address] | | + + + + + Care Team Providers + +------+ + | Care Counter Waiter Name | Role | Phone | + +------+ + PCP | Unavailable | + +------+ + Encounter Details +--------+ + + + + | Date | Type | Department | Care Team | Description | +--------+ + + + + | 06/17/ | Hospital | [facility] | | | | 1991 - | Encounter | MED CTR GENERIC PSY | | | | | | CONV DEPT [address] | | | | 06/18/ | | [address], | | | | 1991 | | [place] [address] | | | | | | [phone] | | | +--------+ + + + [...]
--- OUTSIDE RECORDS SUMMARY | ~2020-07-01 | XMS | Encounter Summary ---
Demographics + + + | Address | [address] [facility] [address] [address] [facility] | | | [place] [address] | + + + | Home Phone [...] [place] | | | | | [address] | | + + + + + Care Team Providers + +------+ + | Care Tip Finisher Name | Role | Phone | [...] | 05/02/ | Telephone | [facility] | Frandy Teresa, | Other | | 2013 | | NEUROSURGERY [address] | DO [address] | | | | | [address] | [address] [place], [place] | | | | | [place], [place] | [id number] | | | | | [address] | | | | | | [phone] | | | +--------+ + + + [...]
--- OUTSIDE RECORDS SUMMARY | ~2020-07-01 | XMS | Encounter Summary ---
Demographics + + + | Address | [address] [facility] | | | [place] [address] | + + + | Home Phone [...] [place] | | | | | [address] | | + + + + + Care Team Providers + +------+ + | Care Emergency Department Technician Name | Role | Phone | [...] + + | 02/13/ | Office | [facility] | Roxannmiguel ángelDora | History of atrial | | 2020 | Visit | CARDIOLOGY [place] | [address] | fibrillation | | | | [address] | [place] | (Primary Dx); New | | | | [address] | [place] [address] | onset left bundle | | | | [place], [place] | [phone] | branch block (LBBB); | | | | [address] | | Benign essential | | | | [phone] | | HTN; History of | | [...] | obesity) ([facility]) | +--------+---------+ + + + [...] 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 Her [id number] VASC score is 4 (stroke, HTN, gender) [...] She has previously seen Dr. Garland in [place], and different sleep provider in [facility] when lived over there. [...] go back to volunteering at the local [employer], though this plan will need to be [...] thirst or hunger. Psychiatric/Behavioral: Bipolar/Schizophrenia. Tx'd by [employer] Vaccines: Current on flu vaccine: 2019 Current on pneumonia vaccine:PPSV 23 05/29/2013 Habits/Social : Denies history of smoking. Denies EtOH use. Denies recreational or illici t drug use. Exercises sporadically. Lives in [place] . Outpatient Medications Prior to Visit Medication [...] by mouth nightly. Blood Glucose Monitoring Suppl ([employer] VERIO FLEX SYSTEM) w/Device KIT by Does [...] is less well-controlled LABS Labs: 12/26/2018: ( [facility])CMP: Sodium 139, potassium 4.2, chloride 99, BUN 10, creatinine 0. 7, BNP 28. CBC: WBC 7.8, hemoglobin 14.3, hematocrit 42.7, platelets 214 Labs: 09/28/2019:( [facility]) CBC: WBC 7.8, hemoglobin 14.9, hematocrit 43.8, platelets 221. C MP: Sodium 132, potassium 4.2, chloride 95, AST 76, ALT 76, alk phos 134 Labs: 10/11/2019:( [facility]) CBC: WBC 6.7, RBC 4.97, hemoglobin 15.2, hematocrit 44.7, platel ets 200. CMP: Glucose 385, BUN 7, creatinine 0.62, GFR 97, sodium 131, potassium 4.1, chlor kelby 95, albumin 4.3, total bilirubin 0.6, AST 75, ALT 73, alk phos 144. Thyroid: TSH 4.27 Labs: 10/12/2020:( [facility]) CBC: WBC 7, RBC 4.93, hemoglobin 14.7, hematocrit 44.1, platele ts 186 normal UA CMP: Glucose 381, BUN 6, creatinine 0.63, GFR 95, sodium 133, potassium 3.8 , chloride 97, albumin 4.3, total bili 0.6, AST 62, ALT 75, alk phos 145 thyroid: TSH 3.07 Labs: 10/20/2019:( [facility]) CBC: WBC 7.1, RBC [...] reviewed her EKG and Echo with her brimmer blocker Dr. Peterson, who was in clin ic [...] 40-49.9 (morbid obesity) ([facility]) Orders Placed This Encounter Procedures [...] continuity of care purp ose [place] [facility] Cardiology 02/15/2020 docume nted in [...] | | | | | DORA VELAZQUEZ ([id number]) on | | | | | | [...]
--- OUTSIDE RECORDS SUMMARY | ~2020-07-01 | XMS | Encounter Summary ---
Demographics + + + | Address | [address] [facility] | | | [place] [address] | + + + | Home Phone [...] [place] | | | | | [address] | | + + + + + [...] | | | | | | [place], | | | | | | [place] [address] | | | | | | [phone] | | | +--------+ + + + [...]
--- OUTSIDE RECORDS SUMMARY | ~2020-07-01 | XMS | Encounter Summary ---
Demographics + + + | Address | [address] [facility] | | | [place] [address] | + + + | Home Phone [...] [place] | | | | | [address] | | + + + + + Care Team Providers + +------+ + | Care Mycology Teacher Name | Role | Phone | [...] | | | | | [address] | [place], [place] | | | | | [place], [place] | [address] | | | | | [address] | | | | | | [phone] | | | +--------+ + + + [...] EVALUATION Cindy Arndt 58 y.o. female 1955 [id number] Scheduled procedure LAMINECTOMY PLIF/TLIF INSTRUMENTATION [1842] - L5-S1 TLIF Medical history, anesthesia, medications, allergy histories reviewed. ECG reviewed. Labs reviewed. ROS / Med History Ane (+) PONV. (-) difficult intubation, malignant hyperthermia . NPO status verified. CV (+) hypertension.(-) past WV. (+) Dysrhythmias (h/o PVCs) Exercise tolerance >4 [...]
--- OUTSIDE RECORDS SUMMARY | ~2020-07-01 | XMS | Encounter Summary ---
Demographics + + + | Address | [address] [facility] | | | [place] [address] | + + + | Home Phone [...] [place] | | | | | [address] | | + + + + + Care Team Providers + +------+ + | Care Online Merchandising Manager Name | Role | Phone | + +------+ + | Natalee Andersen NP | PCP | | + +------+ + Encounter Details +--------+ + + + + | Date | Type | Department | Care Team | Description | +--------+ + + + + | 09/27/ | Hospital | [facility] | Frandy Teresa, | Lumbar spondylosis; | | 2013 | Encounter | MED CTR XRAY [address] | DO [address] | S/P lumbar fusion | | | | [place] | [address] [place], [place] | | | | | [place] [address] | [address] | | | | | [phone] | | | +--------+ + + + [...] + + + +---------+ + + | [place]-3 Fatty | Take 1,000 mg by | [...] + | MISCELLANEOUS LAB | | | [phone] | + +---------+ + + | MISCELANIOUS LAB | | | [phone] | + +---------+ + + documented in this encounter Visit Diagnoses + + | Diagnosis | + + | Lumbar spondylosis Lumbosacral spondylosis without myelopathy | + + | S/P lumbar fusion Arthrodesis status | + + documented in this encounter"
--- OUTSIDE RECORDS SUMMARY | ~2020-07-01 | XMS | Encounter Summary ---
Demographics + + + | Address | [address] [facility] | | | [place] [address] | + + + | Home Phone [...] [place] | | | | | [address] | | + + + + + Care Team Providers + +------+ + | Care Coat Operator Name | Role | Phone | [...] + + | 05/08/ | Telephone | [facility] | Dora De La Torre | Testing | | 2020 | | CARDIOLOGY [place] | [address] | | | | | [address] | [address] | | | | | [address] | [place] [address] | | | | | [place] | [phone] | | | | | [address] | | | | | | [phone] | | | +--------+ + + + [...]
--- OUTSIDE RECORDS SUMMARY | ~2020-07-01 | XMS | Encounter Summary ---
Demographics + + + | Address | [address] [facility] | | | [place] [address] | + + + | Home Phone [...] [place] | | | | | [address] | | + + + + + Care Team Providers + +------+ + | Care Blueprint Trimmer Name | Role | Phone | [...] + + | 10/04/ | Office | [facility] | Desiree Peterson DO | ROGERS on CPAP (Primary | | 2019 | Visit | CARDIOLOGY [place] | [address] | Dx); Morbid obesity | | | | [address] | [place], [place] | ([facility]); Benign | | | | [address] | [address] | essential HTN; | | | | [place], [place] | | Atrial fibrillation, | | | | [address] | | unspecified type | | | | [phone] | | (HCC) | +--------+---------+ + + [...] Peterson, DO - 10/04/2019 11:40 AM PST [facility] Cardiology Cardiology Follow Up [...] rtake in exercise. She recently got a [employer] and has been walking him more regularly. [...] by mouth daily. Blood Glucose Monitoring Suppl ([employer] FLEX SYSTEM) w/Device KIT by Does not ap ply route. budesonide-formoterol (SYMBICORT) 160-4.5 MCG/ACT inhaler Inhale 2 puffs into the lungs 2 (two) times daily. Calcium Carbonate Antacid 1000 MG tablet Take 1,000 mg by mouth 3 (three) times daily. Cholecalciferol (VITAMIN D3) 86151 units CAPS Take by mouth once a [...]
--- OUTSIDE RECORDS SUMMARY | ~2020-07-01 | XMS | Encounter Summary ---
Demographics + + + | Address | [address] [facility] | | | [place] [address] | + + + | Home Phone [...] [place] | | | | | [address] | | + + + + + Care Team Providers + +------+ + | Care Waste Water Or Water Plant Operator Name | Role | Phone [...] + + | 12/17/ | Office | [facility] | Dora De La Torre | History of atrial | | 2020 | Visit | CARDIOLOGY [place] | [address] | fibrillation; Benign | | | | [address] | [address] | essential HTN; | | | | [address] | [place] [address] | History of | | | | [place], [place] | [phone] | hypothyroidism; | | | | [address] | | Stress | | | | [phone] | | hyperglycemia; | | | | | | History of sleep | | | | | | apnea; History of | | | | | | stroke; Obesity, | | | | | | Class III, BMI | | | | | | 40-49.9 (morbid | | | | | | obesity) ([facility]); Mild | | | | | [...] of fatigue and shortness of breath. Her [id number] VASC score is 4 (stroke, HTN, gender) , and Dr. Peterson did not anticoagulate he r due to low incidence of atrial fib. Her current and previous testing and procedures are detailed below. She was seen in the emergency room on October 11, 2019 at [facility] and presented wi th paranoia feeling [...] 405 and [facility], and she was to be started on Abilify. She was seen again in the emergency room on October 19 and , [id number] for sim ilar complaints with increased delusions, [...] She has previously seen Dr. Garland in [place], and different provider in [place] when lived over there. She reports she [...] thirst or hunger. Psychiatric/Behavioral: Bipolar/Schizophrenia. Tx'd by [email or web address] Vaccines: Current on flu vaccine: 2019 Current on pneumonia vaccine:PPSV 23 05/29/2013 Habits/Social : Denies history of smoking. Denies EtOH use. Denies recreational or illici t drug use. Exercises sporadically. Lives in [place] . Outpatient Medications Prior to Visit Medication [...] Take by mouth. Blood Glucose Monitoring Suppl ([employer] VERIO FLEX SYSTEM) w/Device KIT by Does not ap ply route. budesonide-formoterol (SYMBICORT) 160-4.5 mcg/puff inhaler Inhale 2 puffs into the lung s 2 (two) times daily. calcium carbonate antacid (TUMS ULTRA 1000) 1000 MG CHEW Chew and swallow 1,000 mg 4 ti mes daily as needed. Cholecalciferol (VITAMIN D-3) 44596 units CAPS Take 50,000 Units by mouth [...] III, BMI 40-49.9 (morbid obesity) ([facility]) 8. Mild hyperlipidemia Orders Placed This Encounter [...] for continuity of care purp osHannah [facility] Cardiology 12/17/2019 docume nted in this [...] | | | | | | Yesenia ([id number]) on | | | | | | [...]
--- OUTSIDE RECORDS SUMMARY | ~2020-07-01 | XMS | Encounter Summary ---
Demographics + + + | Address | [address] [facility] | | | [place] [address] | + + + | Home Phone [...] [place] | | | | | [address] | | + + + + + Care Team Providers + +------+ + | Care Charging Plug Placer Name | Role | Phone | + +------+ + PCP | Unavailable | + +------+ + Encounter Details +--------+ + + + + | Date | Type | Department | Care Team | Description | +--------+ + + + + | 09/24/ | Hospital | [facility] | | | | 1993 | Encounter | MED CTR LABORATORY | | | | | | [address] | | | | | | [place] | | | | | | [address] | | | | | | [phone] | | | +--------+ + + + [...]
--- OUTSIDE RECORDS SUMMARY | ~2020-07-01 | XMS | Encounter Summary ---
Demographics + + + | Address | [address] [facility] | | | [place] [address] | + + + | Home Phone [...] [place] | | | | | [address] | | + + + + + Care Team Providers + +------+ + | Care Helpdesk Administrator Name | Role | Phone | [...] + + | 08/09/ | Documentati | [facility] | Katharine Moncada, | Other (end of study) | | 2019 | on | CARDIOLOGY [place] | Technologist | | | | | [address] | | | | | | [place], [place] | | | | | | [address] | | | | | | [phone] | | | +--------+ + + + [...] Technologist - 08/09/2019 11:59 PM PDT Cardiac Budget Clerk Date of Event Monitor: 08/09/19 Referring Physician: [...]
--- OUTSIDE RECORDS SUMMARY | ~2020-07-01 | XMS | Encounter Summary ---
Demographics + + + | Address | [address] [facility] | | | [place] [address] | + + + | Home Phone [...] [place] | | | | | [address] | | + + + + + Care Team Providers + +------+ + | Care Fire Apparatus Sprinkler Inspector Name | Role | Phone | [...] [place] | | | | | | [address] | | | | | | [phone] | | | +--------+ + + + [...]
--- OUTSIDE RECORDS SUMMARY | ~2020-07-01 | XMS | Encounter Summary ---
Demographics + + + | Address | [address] [facility] | | | [place] [address] | + + + | Home Phone [...] [place] | | | | | [address] | | + + + + + Care Team Providers + +------+ + | Care Ground Water Technician Name | Role | Phone | + +------+ + PCP | Unavailable | + +------+ + Encounter Details +--------+ + + + + | Date | Type | Department | Care Team | Description | +--------+ + + + + | 12/06/ | Hospital | [facility] | | | | 1994 | Encounter | MED CTR LABORATORY | | | | | | [address] | | | | | | [place] | | | | | | [address] | | | | | | [phone] | | | +--------+ + + + [...]
--- OUTSIDE RECORDS SUMMARY | ~2020-07-01 | XMS | Encounter Summary ---
Demographics + + + | Address | [address] [address] [facility] | | | [place] [address] | + + + | Home Phone [...] [place] | | | | | [address] | | + + + + + Care Team Providers + +------+ + | Care Juke Box Mechanic Name | Role | Phone | [...] [place] | | | | | [place] [address] | [address] | | | | | [phone] | | | +--------+ + + + [...]
--- OUTSIDE RECORDS SUMMARY | ~2020-07-01 | XMS | Encounter Summary ---
Demographics + + + | Address | [address] [facility] | | | [place] [address] | + + + | Home Phone [...] [place], [place] | | | | | [address] | | + + + + + Care Team Providers + +------+ + | Care Wrapping Machine Helper Name | Role | Phone | + +------+ + PCP | Unavailable | + +------+ + Encounter Details +--------+ + + + + | Date | Type | Department | Care Team | Description | +--------+ + + + + | 06/19/ | Hospital | [facility] | | | | 1991 - | Encounter | MED CTR GENERIC PSY | | | | | | CONV DEPT [address] | | | | 06/24/ | | [address] [place], | | | | 1991 | | [place] [address] | | | | | | [phone] | | | +--------+ + + + [...]
--- OUTSIDE RECORDS SUMMARY | ~2020-07-01 | XMS | Encounter Summary ---
Demographics + + + | Address | [address] [facility] | | | [place] [address] | + + + | Home Phone [...] [place] | | | | | [address] | | + + + + + Care Team Providers + +------+ + | Care Bark Spudder Name | Role | Phone | + [...] [place] | | | | | | [address] | | | | | | [phone] | | | +--------+ + + + [...]
--- OUTSIDE RECORDS SUMMARY | ~2020-07-01 | XMS | Encounter Summary ---
Demographics + + + | Address | [address] [facility] [address] [facility] [facility] | | | [place] [address] | + + + | Home Phone [...] [place] | | | | | [address] | | + + + + + Care Team Providers + +------+ + | Care Turbine Technician Name | Role | Phone | [...] + + | 08/09/ | Clinical | [facility] | Desiree Peterson DO | Syncope, unspecified | | 2019 | Support | CARDIOLOGY [place] | [address] | syncope type | | | | [address] | [place], [place] | | | | | [place] [address] | [address] | | | | | [place] | | | | | | [address] | Dora De La Torre | | | | | [phone] | [address] | | | | | | [address] | | | | | | [place] [address] | | | | | | [phone] | | | | | | | [...]
--- OUTSIDE RECORDS SUMMARY | ~2020-07-01 | XMS | Encounter Summary ---
Demographics + + + | Address | [address] [facility] | | | [place] [address] | + + + | Home Phone [...] [place] | | | | | [address] | | + + + + + Care Team Providers + +------+ + | Care Line Repairer Tower Name | Role | Phone | + [...] | | | | | | | [address] | | | | | | | Phone: | | | | | | | [phone] | | | | | | | Fax: | | | | | | | [phone] | | +--------+--------+ + + + + Encounter Details +--------+---------+ + + + | Date | Type | Department | Care Team | Description | +--------+---------+ + + + | 02/27/ | Office | [facility] | Baudilio Newman | Neuropathy (Primary | | 2015 | Visit | NEUROLOGY [place] | MD Pollo Need updated | Dx); Sleep apnea; | | | | [address] [facility], | address | Stroke (HCC); | | | | [address] [place] | | Thyroid disease | | | | [place] [address] | | | | | | [phone] | | | +--------+---------+ + + + [...] supply of blood, brain tissue quickly dies. 3663-9655 [employer]. [address] [place] [address]. All righ ts reserved. This information is not intended as a substitute for professional medical care. Always follow your healthcare professional's instructions. documented in this encounter Progress Notes Baudilio Newman MD - 02/27/2015 10:31 AM PDTFormatting of this note might be differen t from the original. Baudilio Newman MD [address] [place] [address], [address] [place] [address] Neurology Outpatient New Patient Note Referring Provider: [...] history. Notes from her recent hospitalization at [facility] were reviewed in detail. Ms. Arndt started feeling off in the evening of 02/01. She felt dizzy and laid down to slee p. Upon waking, she felt her right side was numb. She tried to get up to go to the bathroom and realized she was weak as well on the right. She was taken to [facility] where she was diagnosed with [...] systol ically. She was reevaluated in the [facility] ED for one such event and her [...] report is not currently available for [facility]. Unfortunately, Ms. Arndt notes that her [...] castellanos DO; [facility] Current Medications: Outpatient [...] tablet Take 15 mg by mouth nightly. [place]-3 Fatty Acids (FISH OIL CONCENTRATE) 1000 MG [...] BMI 46.04 kg /m2 Neck Circumference: 14" Gy[place]um Sleepiness Scale: 2 General: well developed and [...] Romberg test negative Radiographic Review: CTA from [facility] reviewed on [facility]. No significant stenoses seen [...] No results found for this basename: hba1c, ftp0vvz, ldl, ldldirect, ldlext, dldlex Lab Results Component [...]
--- OUTSIDE RECORDS SUMMARY | ~2020-07-01 | XMS | Encounter Summary ---
Demographics + + + | Address | [address] [facility] | | | [place] [address] | + + + | Home Phone [...] [place] | | | | | [address] | | + + + + + Care Team Providers + +------+ + | Care Hoist Cylinder Loader Name | Role | Phone | [...] [place] | | | | | | [address] | | | | | | [phone] | | | +--------+ + + + [...]
--- OUTSIDE RECORDS SUMMARY | ~2020-07-01 | XMS | Encounter Summary ---
Demographics + + + | Address | [address] [facility] | | | [place] [address] | + + + | Home Phone [...] [place], [place] | | | | | [address] | | + + + + + Care Team Providers + +------+ + | Care Plant Manager Name | Role | Phone | + +------+ + PCP | Unavailable | + +------+ + Encounter Details +--------+ + + + + | Date | Type | Department | Care Team | Description | +--------+ + + + + | 06/23/ | Hospital | [facility] | | | | 1999 | Encounter | MED CTR GENERIC OP | | | | | | CONV DEPT [address] | | | | | | [place], | | | | | | [place] [address] | | | | | | [phone] | | | +--------+ + + + [...]
--- OUTSIDE RECORDS SUMMARY | ~2020-07-01 | XMS | Encounter Summary ---
Demographics + + + | Address | [address] [facility] | | | [place] [address] | + + + | Home Phone [...] [place] | | | | | [address] | | + + + + + Care Team Providers + +------+ + | Care Parish Visitor Name | Role | Phone | + [...] + | 02/21/ | Refill | [facility] | Deon Gonzales | Medication Refill | | 2012 | | SLEEP DISORDER [address] | MD Laure[address] | | | | | [address] [place] | [address] | | | | | [place] [address] | [place] [address] | | | | | [phone] | [phone] | | | | | | | [...] - 02/22/2013 9:32 AM PDTFaxed to [facility] documented in this encount er Plan of Treatment Not on filedocumented as of this encounter Visit Diagnoses + + | Diagnosis | + + | Obstructive sleep apnea (adult) (pediatric) - Primary | + + documented in this encounter"
--- OUTSIDE RECORDS SUMMARY | ~2020-07-01 | XMS | Encounter Summary ---
Demographics + + + | Address | [address] [facility] | | | [place] [address] | + + + | Home Phone [...] [place] | | | | | [address] | | + + + + + Care Team Providers + +------+ + | Care Advertising Job Titles Name | Role | Phone | + [...] + + | 08/16/ | Documentati | [facility] | Katharine Moncada, | Other (urgent | | 2019 | on | CARDIOLOGY GENESIS | Technologist | report) | | | | [address] | | | | | | [place] | | | | | | [address] | | | | | | [phone] | | | +--------+ + + + [...]
--- OUTSIDE RECORDS SUMMARY | ~2020-07-01 | XMS | Encounter Summary ---
Demographics + + + | Address | [address] [facility] | | | [place] [address] | + + + | Home Phone [...] [place] | | | | | [address] | | + + + + + Care Team Providers + +------+ + | Care Strap Buckler Machine Name | Role | Phone | [...] Radiology | History [facility] | [facility] | | | | | atrial | COMMITTEE MEMBER [address] | | | | | fibrillation | [address] | [place] | | | | | History of | [address] | [place], [place] | | | | | stroke | [place], [place] | [address] | | | | | Sinus | [address] | Phone: | | | | | tachycardia | Phone: | [phone] | | | | | by | [phone] | Fax: | | | | | electrocardi | Fax: | [phone] | | | | | ogram New | [phone] | | | | | | onset [...] + + | 01/09/ | Office | [facility] | Roxannmiguel ángelDora | History of atrial | | 2019 | Visit | CARDIOLOGY [place] | CAROLINE Mendez [address] | fibrillation | | | | [address] | GOETHALDaphney SCHAFER F | (Primary Dx); Benign | | | | [address] | [place] [address] | essential HTN; | | | | [place], [place] | [phone] | History of | | | | [address] | | hypothyroidism; | | | | [phone] | | Stress | | | | [...] an urgent Echo to be done at [place] to follow up on new left bundle [...] of fatigue and shortness of breath. Her [id number] VASC score is 4 (stroke, HTN, gender) [...] go back to volunteering at the local [employer], though this plan will need to be on hold with current epidemic restrictions . She reports after she lost 160 pounds with a gastric sleeve that she was retested for sle ep apnea 2 years ago, and told the results negative, but has not had CPAP for 3 years She has previously seen Dr. Garland in [place], and different sleep provider in [facility] when lived over there. [...] thirst or hunger. Psychiatric/Behavioral: Bipolar/Schizophrenia. Tx'd by [facility] Vaccines: Current on flu vaccine: 2019 Current on pneumonia vaccine:PPSV 23 05/29/2013 Habits/Social : Denies history of smoking. Denies EtOH use. Denies recreational or illici t drug use. Exercises sporadically. Lives in [place] . Outpatient Medications Prior to Visit Medication [...] by mouth nightly. Blood Glucose Monitoring Suppl ([employer] VERIO FLEX SYSTEM) w/Device KIT by Does [...] s better controlled. LABS Labs: 12/26/2018: ( [facility])CMP: Sodium 139, potassium 4.2, chloride 99, BUN 10, creatinine 0. 7, BNP 28. CBC: WBC 7.8, hemoglobin 14.3, hematocrit 42.7, platelets 214 Labs: 09/28/2019:( [facility]) CBC: WBC 7.8, hemoglobin 14.9, hematocrit 43.8, platelets 221. C MP: Sodium 132, potassium 4.2, chloride 95, AST 76, ALT 76, alk phos 134 Labs: 10/11/2019:( [facility]) CBC: WBC 6.7, RBC 4.97, hemoglobin 15.2, hematocrit 44.7, platel ets 200. CMP: Glucose 385, BUN 7, creatinine 0.62, GFR 97, sodium 131, potassium 4.1, chlor kelby 95, albumin 4.3, total bilirubin 0.6, AST 75, ALT 73, alk phos 144. Thyroid: TSH 4.27 Labs: 10/12/2020:( [facility]) CBC: WBC 7, RBC 4.93, hemoglobin 14.7, hematocrit 44.1, platele ts 186 normal UA CMP: Glucose 381, BUN 6, creatinine 0.63, GFR 95, sodium 133, potassium 3.8 , chloride 97, albumin 4.3, total bili 0.6, AST 62, ALT 75, alk phos 145 thyroid: TSH 3.07 Labs: 10/20/2019:( [facility]) CBC: WBC 7.1, RBC [...] and reviewed her EKG results with her process artist, Dr. Peterson, who is in the cli vickie today, and the plan is to get an updated echo to evaluate her for any new wall motion ab normalities. If she has any wall motion abnormalities, she will need to have further evalua tion for ischemic heart disease in [place] such as a stress test or angiogram I reviewed her EKG with her, and discussed this plan with her. The Echo will be ordered on an urgent basis, is currently a restriction on all nonurgent testing at [facility] . She was agreeable to this [...] continuity of care purp ose Preston BUCIO [facility] Cardiology 01/10/2020 docume nted in [...]
--- OUTSIDE RECORDS SUMMARY | ~2020-07-01 | XMS | Encounter Summary ---
Demographics + + + | Address | [address] [facility] | | | [place] [address] | + + + | Home Phone [...] [place] | | | | | [address] | | + + + + + Care Team Providers + +------+ + | Care Environmental Remediation Engineer Name | Role | Phone | + +------+ + PCP | Unavailable | + +------+ + Encounter Details +--------+ + + + + | Date | Type | Department | Care Team | Description | +--------+ + + + + | 02/28/ | Hospital | [facility] | Deon Gonzales | | | 2011 | Encounter | MED CTR SLEEP | MD Laure[address] | | | | | REPUBLIC [address] | [address] [place] | | | | | [place], [place] | [place] [address] | | | | | [address] | [phone] | | | | | [phone] | | | +--------+ + + + [...] - 02/29/2012 2:36 PM PDTDATE: 02/29/2012 cc: [facility] Sleep Center Deon Gonzales Jr., MD, [facility] POSITIVE PRESSURE TITRATION STUDY CLINICAL [...] the patient scored 18 points on the [place] Sleepiness Scale, which endorses a severe degree [...] advised. Deon Gonzales Jr., MD, FAASM Diplomate [place] Board of Internal Medicine Diplomate in Sleep Medicine Food And Beverage Server, [facility] Clinical Glass Laminating Operator [facility], [facility] JOB #: [id number] EXT JOB #:[id number] EDITED: 03/03/2012 07:26 <Electronically Signed by Deon Gonzales MD> 03/03/12 0848 documented in this encounter Plan of Treatment Not on filedocumented as of this encounter Visit Diagnoses Not on filedocumented in this encounter"
--- OUTSIDE RECORDS SUMMARY | ~2020-07-01 | XMS | Encounter Summary ---
Demographics + + + | Address | [address] [facility] [address] | | | [place] [address] | + + + | Home Phone [...] [place] | | | | | [address] | | + + + + + Care Team Providers + +------+ + | Care Painting Machine Operator Name | Role | Phone [...] | | | | | mellitus, | [address] | [place] | | | | | controlled | Phone: | [phone] | | | | | (HCC) | [phone] | Phone: | | | | | History of | Fax: | [phone] | | | | | gastric | [phone] | Fax: | | | | | restrictive | | [phone] | | | | | surgery | [...] | | | y Type 2 | [address] | [place] | | | | | diabetes | Phone: | [address] | | | | | mellitus, | [phone] | Phone: | | | | | controlled | Fax: | [phone] | | | | | (HCC) | [phone] | Fax: | | | | | Obesity, | | [phone] | | | | | Class III, [...] | | FOR[facility]AT[facility] & Katharine BUCIO in [place]. | + + + | Other | [...] + + | 03/06/ | Office | [facility] | Katharnie Cardona PA-C | Hypothyroidism due | | 2015 | Visit | MEDICINE [address] | to acquired atrophy | | | | [address], | [place] [address] | of thyroid (Primary | | | | [place] [address] | [phone] | Dx); Essential | | | | [phone] | | hypertension; Iron | | | [...] | | | | ([facility]); Environmental | | | | | [...] | | obesity) ([facility]); | | | | | | Type 2 diabetes | | | | | | mellitus, controlled | | | | | | ([facility]); Preventative | | | | | [...] t be different from the original. Ask Health Data Minder if they think it might be helpful [...] Cont your meds as prescribed. F/U with Health Data Minder as scheduled Neuropathy Continue gabapentin. May consider increase if pain is not controlled. May benefit from switching from Paxil to one of the SNRIs or TCAs for analgesic effects, ho manju, she is doing so well on her current regimen it may not be worth making any changes an d find alternate ways to deal with the pain. Would be worth discussing with Health Data Minder Psych Back Pain Will refer to water therapy (aqua fitness) at [facility] as request ed. ROGERS [...] 4. Schizoaffective disorder, bipolar type ([facility]) 5. Neuropathy Vitamin B-12 6. BACK PAIN, LUMBAR, WITH RADICULOPATHY Ambulatory referral to Physical Therapy 7. ROGERS on CPAP 8. Stroke ([facility]) 9. Environmental and seasonal allergies fluticasone (FLONASE) 50 mcg/nasal spray 10. Gastroesophageal reflux disease without esophagitis dexlansoprazole (DEXILANT) 60 mg D R capsule 11. History of gastric restrictive surgery Vitamin D, 25-Hydroxy Nutrition Services - External - AMB Referral 12. Obesity, Class III, BMI 40-49.9 (morbid obesity) ([facility]) Ambulatory referral to Physical Therapy Nutrition Services - External - AMB Referral 13. Type 2 diabetes mellitus, controlled ([facility]) Ambulatory referral to Physical Therapy Nutrition [...] Cont your meds as prescribed. F/U with [facility] [place] as scheduled Neuropathy Continue gabapentin. May consider [...] the pain. Would be worth discussing with Health Data Minder professional. Back Pain Will refer to water therapy (aqua fitness) at [facility] as request ed. Cont home [...] plan. The above note was dictated using blueKiwi voice recognition software. It may have not been proofread in entirety. Minor errors in grammar may occur. CHIEF COMPLAINT Chief Complaint Patient presents with Establish Care Presents to establish care. Former patient of [facility] Katharine [facility] in [place]. Other Possible stroke January 2015. Is now seeing Dr. Newman, changed to Plavix 02-27-15 from [facility]. Diabetes NIDDM. Checks blood sugars almost [...] auditory, at 36. She worked as an [employer] prior to her psychotic break. She is now very well controlled on Saphris, Depakote, and Paxi l. She is followed by [facility] in [place]. She has DM2 that is well controlled [...] castellanos DO; Location: [facility] SOCIAL HISTORY History Social [...] mg by mouth Daily. Cholecalciferol (VITAMIN D-3) 79802 units CAPS Oral Take 50,000 Units by [...] Oral Take 10 mg by mouth nightly. Napoleon-3 Fatty Acids (FISH OIL CONCENTRATE) 1000 MG [...] | | | | controlled ([facility]) | | | | | | Obesity, Class III, | | | | | | BMI 40-49.9 (morbid | | | | | | obesity) ([facility]) | | + + +--------+ + + | Nutrition Services - | Outpatient | Routin | Iron deficiency | Ordered: 03/06/2015 | | External - AMB | Referral | e | anemia Type 2 | | | Referral | | | diabetes mellitus, | | | | | | controlled ([facility]) | | | | | | History of gastric | | | | | | restrictive surgery | | | | | | Obesity, Class III, | | | | | | BMI 40-49.9 (morbid | | | | | | obesity) ([facility]) | | + + +--------+ + [...] mL/min/1.73m2 | [facility] | | | Vietnamese | RATE,ESTIMATED | | MEDICAL | | | | mL/min/1.34q0Ljte than | | CENTER - | | [...] ST. | [address] | [place] | [phone] | | [facility] | | [address] | | | - LABORATORY | | [...] + + | Schizoaffective disorder, bipolar type ([facility]) Schizoaffective disorder, unspecified | | condition [...]
--- OUTSIDE RECORDS SUMMARY | ~2020-07-01 | XMS | Encounter Summary ---
Demographics + + + | Address | [address] [facility] | | | [place] [address] | + + + | Home Phone [...] [place] | | | | | [address] | | + + + + + Care Team Providers + +------+ + | Care Naval Aircrewman Operator Name | Role | Phone | [...] | | | | | | | [address] | | | | | | | Phone: | | | | | | | [phone] | | | | | | | Fax: | | | | | | | [phone] | | +--------+ + + + + + Reason for Visit + + + | Reason | Comments | + + + | Follow-up | 3 mo po | + + + Encounter Details +--------+---------+ + + + | Date | Type | Department | Care Team | Description | +--------+---------+ + + + | 09/27/ | Office | [facility] | Frandy Teresa, | Lumbar spondylosis | | 2013 | Visit | NEUROSURGERY [address] | DO [address] | (Primary Dx); S/P | | | | [address] | [address] [place], [place] | lumbar fusion | | | | [place], [place] | [address] | | | | | [address] | | | | | | [phone] | | | +--------+---------+ + + + [...] [facility] [address] [place], [place] [address] FAX: NEUROSURGERY FOLLOW-UP CHIEF COMPLAINT: Chief Complaint [...] Take 15 mg by mouth nightl y. Hobson-3 Fatty Acids (FISH OIL CONCENTRATE) 1000 MG [...] encounter Miscellaneous Notes Miscellaneous - ONBASE SCAN [facility] - 09/27/2014 12:00 AM PST documented in [...]
--- OUTSIDE RECORDS SUMMARY | ~2020-07-01 | XMS | Encounter Summary ---
Demographics + + + | Address | [address] [facility] | | | [place] [address] | + + + | Home Phone [...] [place] | | | | | [address] | | + + + + + Care Team Providers + +------+ + | Care Lead Press Operator Name | Role | Phone | + +------+ + | Hari Samson DO | PCP | | + +------+ + Encounter Details +--------+ + + + + | Date | Type | Department | Care Team | Description | +--------+ + + + + | 06/12/ | Hospital | [facility] | Frandy Teresa, | No Show | | 2014 | Encounter | MED CTR | DO [address] | | | | | ELECTRODIAGNOSTICS | [address] [place], [place] | | | | | [address] [place] | [address] | | | | | [place] [address] | | | | | | [phone] | | | +--------+ + + + [...]
--- OUTSIDE RECORDS SUMMARY | ~2020-07-01 | XMS | Encounter Summary ---
Demographics + + + | Address | [address] [facility] | | | [place] [address] | + + + | Home Phone [...] [place] | | | | | [address] | | + + + + + [...] + + | 08/28/ | Telephone | [facility] | Ashley Chávez | Other (Patient has | | 2018 | | CARDIOLOGY GENESIS Abad, Drafter Electrical | questions about | | | | [address] | | monitor. ) | | | | [place], [place] | | | | | | [address] | | | | | | [phone] | | | +--------+ + + + [...] Miscellaneous Notes Telephone Encounter - Ashley Chávez, Drafter Electrical - 08/28/2019 8:32 AM Rory foster says [...] that if she chooses. Patient stated understanding. CLAYTONW:FIELD TRAINING MANAGER-AAMA. sandro umented in this encounter Plan of Treatment Not on filedocumented as of this encounter Visit Diagnoses Not on filedocumented in this encounter"
--- OUTSIDE RECORDS SUMMARY | ~2020-07-01 | XMS | Encounter Summary ---
Demographics + + + | Address | [address] [facility] | | | [place] [address] | + + + | Home Phone [...] [place] | | | | | [address] | | + + + + + Care Team Providers + +------+ + | Care Hand Sizer Name | Role | Phone | [...] [address] | [address] [place], [place] | Hypothyroidism; | | | | [place] | [address] | GERD; BACK PAIN, | | | | [address] | | LUMBAR, WITH | | | | [phone] | | RADICULOPATHY; | | | | [...]
--- OUTSIDE RECORDS SUMMARY | ~2020-07-01 | XMS | Encounter Summary ---
Demographics + + + | Address | [address] [facility] | | | [place] [address] | + + + | Home Phone [...] [place] | | | | | [address] | | + + + + + Care Team Providers + +------+ + | Care Stonecutter Apprentice Hand Name | Role | Phone | [...] + | 01/02/ | Telephone | [facility] | Frandy Teresa, | Other (6m x-ray ) | | 2014 | | NEUROSURGERY [address] | DO [address] | | | | | [address] | [address] [place], [place] | | | | | [place], [place] | [id number] | | | | | [address] | | | | | | [phone] | | | +--------+ + + + [...] for review. The order was faxed to [facility] today. She will let us know when this has been completed. SHAYNE ARAGON documented in this encounter Plan of Treatment Not on filedocumented as of this encounter Visit Diagnoses Not on filedocumented in this encounter"
--- OUTSIDE RECORDS SUMMARY | ~2020-07-01 | XMS | Encounter Summary ---
Demographics + + + | Address | [address] [facility] | | | [place] [address] | + + + | Home Phone [...] [place] | | | | | [address] | | + + + + + Care Team Providers + +------+ + | Care Real Estate Instructor Name | Role | Phone | + +------+ + PCP | Unavailable | + +------+ + Encounter Details +--------+ + + + + | Date | Type | Department | Care Team | Description | +--------+ + + + + | 12/27/ | Hospital | [facility] | | | | 1997 | Encounter | MED CTR EMERGENCY | | | | | | CENTER [address] | | | | | | [place] | | | | | | [address] | | | | | | [phone] | | | +--------+ + + + [...]
--- OUTSIDE RECORDS SUMMARY | ~2020-07-01 | XMS | Encounter Summary ---
Demographics + + + | Address | [address] [facility] | | | [place] [address] | + + + | Home Phone [...] [place] | | | | | [address] | | + + + + + Care Team Providers + +------+ + | Care Brush Washer Name | Role | Phone | [...] + + | 09/10/ | Documentati | [facility] | Katharine Moncada, | Other (urgent | | 2019 | on | CARDIOLOGY GENESIS | Technologist | report) | | | | [address] | | | | | | [place] | | | | | | [address] | | | | | | [phone] | | | +--------+ + + + [...]
--- OUTSIDE RECORDS SUMMARY | ~2020-07-01 | XMS | Encounter Summary ---
Demographics + + + | Address | [address] [facility] | | | [place] [address] | + + + | Home Phone [...] [place] | | | | | [address] | | + + + + + Care Team Providers + +------+ + | Care Small Stock Facer Name | Role | Phone | + [...] + | 07/19/ | Office | [facility] | Desiree Peterson DO | Syncope, unspecified | | 2019 | Visit | CARDIOLOGY [place] | [address] | syncope type | | | | [address] | [place] [address] [place], [place] | (Primary Dx); | | | | [address] | [address] | Essential | | | | [place] | | hypertension; | | | | [address] | | Irregular heartbeat | | | | [phone] | | | +--------+---------+ + + + [...] Peterson DO - 07/19/2019 10:40 AM PDT [facility] Cardiology Follow Up Note Reason [...] rtake in exercise. She recently got a [employer] and has been walking him more regularly. [...] by mouth daily. Blood Glucose Monitoring Suppl ([employer] VERIO FLEX SYSTEM) w/Device KIT by Does not ap ply route. budesonide-formoterol (SYMBICORT) 160-4.5 MCG/ACT inhaler Inhale 2 puffs into the lungs 2 (two) times daily. Calcium Carbonate Antacid 1000 MG tablet Take 1,000 mg by mouth 3 (three) times daily. Cholecalciferol (VITAMIN D3) 72086 units CAPS Take by mouth once a [...]
--- OUTSIDE RECORDS SUMMARY | ~2020-07-01 | XMS | Encounter Summary ---
Demographics + + + | Address | [address] [facility] | | | [place] [address] | + + + | Home Phone [...] [place] | | | | | [address] | | + + + + + Care Team Providers + +------+ + | Care Rn Corrections Name | Role | Phone | + +------+ + | Natalee Andersen NP | PCP | | + +------+ + Encounter Details +--------+ + + + + | Date | Type | Department | Care Team | Description | +--------+ + + + + | 07/25/ | Hospital | [facility] | Frandy Teresa, | Status post lumbar | | 2014 | Encounter | MED CTR XRAY [address] | DO [address] | spinal fusion | | | | [place] | [address] [place], [place] | | | | | [place] [address] | [address] | | | | | [phone] | | | +--------+ + + + [...] + + + +---------+ + + | Salis[place]-3 Fatty | Take 1,000 mg by | [...] + | MISCELLANEOUS LAB | | | [phone] | + +---------+ + + | MISCELANIOUS LAB | | | [phone] | + +---------+ + + documented in this encounter Visit Diagnoses + + | Diagnosis | + + | Status post lumbar spinal fusion Arthrodesis status | + + documented in this encounter"
--- OUTSIDE RECORDS SUMMARY | ~2020-07-01 | XMS | Encounter Summary ---
Demographics + + + | Address | [address] [facility] | | | [place] [address] | + + + | Home Phone [...] [place] | | | | | [address] | | + + + + + [...] + | 06/20/ | Telephone | [facility] | Frandy Teresa, | Other (surgery | | 2013 | | NEUROSURGERY [address] | DO [address] | reminder ) | | | | [address] [facility] [address] | [address] [place], [place] | | | | | [place], [place] | [id number] | | | | | [address] | | | | | | [phone] | | | +--------+ + + + [...]
--- OUTSIDE RECORDS SUMMARY | ~2020-07-01 | XMS | Encounter Summary ---
Demographics + + + | Address | [address] [facility] | | | [place] [address] | + + + | Home Phone [...] [place], [place] | | | | | [address] | | + + + + + Care Team Providers + +------+ + | Care Ui Programmer Name | Role | Phone | + +------+ + PCP | Unavailable | + +------+ + Encounter Details +--------+ + + + + | Date | Type | Department | Care Team | Description | +--------+ + + + + | 02/22/ | Hospital | [facility] | | | | 1996 - | Encounter | MED CTR GENERIC PSY | | | | | | CONV DEPT [address] | | | | 02/26/ | | [place], | | | | 1996 | | [place] [address] | | | | | | [phone] | | | +--------+ + + + [...]
--- OUTSIDE RECORDS SUMMARY | ~2020-07-01 | XMS | Encounter Summary ---
Demographics + + + | Address | [address] [facility] | | | [place] [address] | + + + | Home Phone [...] [place], [place] | | | | | [address] | | + + + + + Care Team Providers + +------+ + | Care Heavy Equipment Sales Associate Name | Role | Phone | + +------+ + PCP | Unavailable | + +------+ + Encounter Details +--------+ + + + + | Date | Type | Department | Care Team | Description | +--------+ + + + + | 12/31/ | Hospital | [facility] | | | | 1996 | Encounter | MED CTR XRAY [address] | | | | | | [place] | | | | | | [place] [address] | | | | | | [phone] | | | +--------+ + + + [...]
--- OUTSIDE RECORDS SUMMARY | ~2020-07-01 | XMS | Encounter Summary ---
Demographics + + + | Address | [address] [facility] [address] | | | [place] [address] | + + + | Home Phone [...] [place], [place] | | | | | [address] | | + + + + + Care Team Providers + +------+ + | Care Handbag Stitcher Name | Role | Phone | + +------+ + PCP | Unavailable | + +------+ + Encounter Details +--------+ + + + + | Date | Type | Department | Care Team | Description | +--------+ + + + + | 03/13/ | Hospital | [facility] | | | | 1996 - | Encounter | MED CTR GENERIC OP | | | | | | CONV DEPT [address] | | | | 03/21/ | | Bertha [place], | | | | 1996 | | [place] [address] | | | | | | [phone] | | | +--------+ + + + [...]
--- OUTSIDE RECORDS SUMMARY | ~2020-07-01 | XMS | Encounter Summary ---
Demographics + + + | Address | [address] [facility] [address] | | | [place] [address] | + + + | Home Phone [...] [place] | | | | | [address] | | + + + + + Care Team Providers + +------+ + | Care Youth Probation Officer Name | Role | Phone | [...] + + | 06/28/ | Telephone | [facility] | Ashley Chávez | Talia (Patient | | 2018 | | CARDIOLOGY GENESIS Abad, Warehouse Traffic Supervisor | called to cancel her | | | | [address] | | appointment) | | | | [place] | | | | | | [address] | | | | | | [phone] | | | +--------+ + + + [...] Miscellaneous Notes Telephone Encounter - Ashley Chávez, Warehouse Traffic Supervisor - 06/28/2019 2:12 PM Seferino foster said [...]
--- OUTSIDE RECORDS SUMMARY | ~2020-07-01 | XMS | Encounter Summary ---
Demographics + + + | Address | [address] [facility] [address] | | | [place] [address] | + + + | Home Phone [...] [place] | | | | | [address] | | + + + + + Care Team Providers + +------+ + | Care Miller [employer] Name | Role | Phone | + [...] [address] | | | | | [place], [place] | Shaheen Simons | | | | | [address] | [place] [address] | | | | | [phone] | [phone] | | | | | | | [...] GIVEN Testing | | | performed at [facility];[address] [place] [address];[place] [address] CULTURE | | | 50,000 TO 100,000 CFU/ML | | | MIXED GRAM POSITIVE HAIDER NO SUSCEPTIBILITY TO FOLLOW | | | MULTIPLE ORGANISM TYPES PRESENT, | | | SUGGESTIVE OF CONTAMINATION OR COLONIZATION. SUGGEST RECOLLECTION FOR | | | CULTURE. Testing | | | performed at [facility];[address] [place] [address];[place] [address] REPORT | | | STATUS 06/08/2012 FINAL [...]
--- OUTSIDE RECORDS SUMMARY | ~2020-07-01 | XMS | Encounter Summary ---
Demographics + + + | Address | [address] [facility] [address] | | | [place] [address] | + + + | Home Phone [...] [place], [place] | | | | | [address] | | + + + + + Care Team Providers + +------+ + | Care Director Community Organization Name | Role | Phone | + +------+ + PCP | Unavailable | + +------+ + Encounter Details +--------+ + + + + | Date | Type | Department | Care Team | Description | +--------+ + + + + | 12/22/ | Hospital | [facility] | | | | 1993 - | Encounter | MED CTR GENERIC PSY | | | | | | CONV DEPT [address] | | | | 12/25/ | | [place]tha [place], | | | | 1993 | | [place] [address] | | | | | | [phone] | | | +--------+ + + + [...]
--- OUTSIDE RECORDS SUMMARY | 2020-07-01 07:44 | XMS ---
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 No recent Security Events currently on file CRITERIA MET - 6 ED Visits in 6 Months - [facility] - Has Care Guidelines - PDMP - [facility] - 2 Visits in 30 Days CARE PROVIDERS WAYNE CAMARGO Internal Medicine 09/07/2019-Current PHONE: [phone] SMITH DOMINGUEZ Counselor: Mental Health 05/21/2020-Current PHONE: [phone] Kenny Palafox [facility] Current PHONE: [phone] ANGELICA MELVIN Internal Medicine: Pulmonary Disease 05/21/2020-Current PHONE: Unknown Jose Ag [facility] 01/31/2019-Current PHONE: [phone] Guidelines Source: [facility] [place] Guidelines Date: 03/13/2019 Care Coordination: Mental health services are being provided by [facility].\T\nbsp; Please contact [facility] with mental health concerns.\T\nbsp; [place]: [phone]\T\nbsp; [place]: [phone]. Care History Medical/Surgical 06/02/2020 [facility] - LETTER FROM PATIENT PCP- DR DOMINGUEZ [...] TO DR DOMINGUEZ IF NEEDED. DR DOMINGUEZ [phone] 05/26/2020 [facility] Patient stated that she was having chest discomfort and called [facility] and they told her to go to ED. Patient has a televisit with Dr. Dominguez on 05/27/2020 at 8:40 am. 05/21/2020 [facility] Patient\T\#39;s therapist, Ashley Lopez, RESIDENTIAL ROOFER HELPER at [facility] has been advised of her overuse of the ED and discussed with her. Also, she has put in a Referral to have a CHW at [facility] work with her .\T\nbsp; Patient was just seen by Walk In provider, Ashley Sharp, yesterday, 05/20/2020 for skin issue.\T\ nbsp; Next PCP visit on 05/29/2020. E.D. VISIT COUNT (12 MO.) 25 [facility]. TOTAL 25 NOTE: Visits indicate total known visits. ED/UCC VISIT TRACKING (12 MO.) 07/01/2020 07:41 [facility] [place] TYPE: Emergency COMPLAINT: - L HIP, LEG PAIN 06/24/2020 01:30 [facility] [place] TYPE: Emergency COMPLAINT: - HIP PAIN INJURY DIAGNOSES: - Essential (primary) hypertension - Fall on same level from slipping, tripping and stumbling with - Type 2 diabetes mellitus without complications - Old myocardial infarction - Gastro-esophageal reflux disease without esophagitis - Allergy status to other drugs, medicaments and biological sub - Pain in left hip - Contusion of left hip, initial encounter - Other retirement (current) drug therapy - Allergy status to sulfonamides status 05/25/2020 12:32 [facility] [place] TYPE: Emergency COMPLAINT: - CHEST PAIN, DIZZINESS DIAGNOSES: - Gastro-esophageal reflux disease without esophagitis - Old myocardial infarction - 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 - drapery examiner (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 - Allergy status to sulfonamides status - USP (current) use of oral hypoglycemic [...] transient ischemic attack (TIA), and cere - USP (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 - Schizophrenia, unspecified - Type 2 diabetes mellitus with hyperglycemia - Other retirement (current) drug therapy - Gastro-esophageal reflux disease [...] - Chest pain, unspecified 05/21/2020 04:15 [facility] TYPE: Emergency COMPLAINT: - LIGHT HEADED DIAGNOSES: - drapery examiner (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 of 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 - Allergy status to sulfonamides status - Old myocardial infarction - Schizophrenia, unspecified - Type 2 diabetes mellitus with hyperglycemia - Shortness of breath - Allergy status to other drugs, medicaments and biological sub - Essential (primary) hypertension - 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 - drapery examiner (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 - Gastro-esophageal reflux disease without esophagitis 05/13/2020 19:47 [facility] TYPE: Emergency COMPLAINT: - MEDICAL CLEARANCE DIAGNOSES: - Allergy status to other drugs, medicaments and biological sub - Other retirement (current) drug therapy - drapery examiner (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 of 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 - Encounter for other general examination - Essential (primary) hypertension - Gastro-esophageal reflux disease without esophagitis - drapery examiner (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 - Allergy status to sulfonamides status - Old myocardial infarction - Type 2 diabetes mellitus without complications 05/06/2020 06:05 [facility] [place] TYPE: Emergency COMPLAINT: - RAPID HEARTRATE DIAGNOSES: - Gastro-esophageal reflux disease without esophagitis - drapery examiner (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 of 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 - Allergy status to sulfonamides status - Essential (primary) hypertension - Allergy status to other drugs, medicaments and biological sub - Type 2 diabetes mellitus without complications - USP (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 - Palpitations - Old myocardial infarction - 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 05/03/2020 19:00 [facility] [place] TYPE: Emergency COMPLAINT: - RAPID HEART RATE DIAGNOSES: - Allergy status to other drugs, medicaments and biological sub - Allergy status to sulfonamides status - Old myocardial infarction - Gastro-esophageal reflux disease without esophagitis - Essential (primary) hypertension - USP (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 of 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 - Type 2 diabetes mellitus with hyperglycemia - USP (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 - Palpitations - 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 04/28/2020 18:43 [facility] [place] TYPE: Emergency COMPLAINT: - MEDICAL CLEARANCE DIAGNOSES: - Gastro-esophageal reflux disease without esophagitis - Allergy status to other drugs, medicaments and biological sub - Essential (primary) hypertension - Allergy status to sulfonamides status - Type 2 diabetes mellitus without complications - Other retirement (current) drug therapy - Hallucinations, unspecified - [...] Gastro-esophageal reflux disease without esophagitis - Other retirement (current) drug therapy - Delusional disorders 10/22/2019 16:37 [facility] [place] TYPE: Emergency COMPLAINT: - MEDICAL CLEARANCE DIAGNOSES: - Type 2 diabetes mellitus without complications - Gastro-esophageal reflux disease without esophagitis - Old myocardial infarction - Other retirement (current) drug therapy - Essential (primary) hypertension [...] ischemic attack (TIA), and cere - 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 - Old myocardial [...] sub - Old myocardial infarction - 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 - Allergy status to sulfonamides status - Gastro-esophageal reflux disease without esophagitis - Essential (primary) hypertension - Suicidal ideations - Encounter for other administrative examinations 09/26/2019 10:06 [facility] [place] TYPE: Emergency COMPLAINT: - MEDICAL CLEARANCE DIAGNOSES: - Other retirement (current) drug therapy - Personal history of transient ischemic attack (TIA), and cere - Gastro-esophageal reflux disease without esophagitis - Allergy status to sulfonamides status - Old myocardial infarction - Schizoaffective disorder, unspecified - Allergy status to other drugs, medicaments and biological sub - Essential (primary) hypertension - USP (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 09/25/2019 13:35 [facility] [place] TYPE: Emergency COMPLAINT: - HEARING VOICES DIAGNOSES: - Type 2 diabetes mellitus without complications - Personal history of transient ischemic attack (TIA), and cere - Gastro-esophageal reflux disease without esophagitis - Schizoaffective disorder, unspecified - Suicidal ideations - drapery examiner (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 - Old myocardial infarction - Allergy status to sulfonamides status - Essential (primary) hypertension - Other retirement (current) drug therapy - Allergy status to other drugs, medicaments and biological sub Plus 6 More Visits INPATIENT VISIT TRACKING [...] sub - Paroxysmal atrial fibrillation - 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 - Allergy status to sulfonamides status [email or web address]
[2020-07-01] MEDS ORDERED: DICLOFENAC SODI75 MG PO (07:58)
== END 2020-07-01 08:06 | disposition home or self-care (01) ==
LOC: ED 07:41
DX: M53.3 Sacrococcygeal disorders, not elsewhere classified (principal); M25.552 Pain in left hip

== ENCOUNTER 2020-07-03 09:58 | Emergency (ER) | payer MEDICARE ==
[~2020-07-03] VITALS: Ht 170.2 cm; Wt 90.7 kg
--- OUTSIDE RECORDS SUMMARY | ~2020-07-03 | XMS | Encounter Summary ---
Demographics + + + | Address | [address] [facility] [address] | | | [place] [address] | + + + | Home Phone | | + + + | Preferred Language | Unknown | + + + | Marital Status | | + + + | Yarsani Affiliation | 1013 | + + + | Race | White | + + + | Ethnic Group | Not or | + + + Author + + + | Author | [facility] | | | and [place] | + + + | Organization | [facility] | | | and [place] | + + + | Address | Unknown | + + + | Phone | Unavailable | + + + Support + + + + + | Name | Relationship | Address | Phone | + + + + + | Araceli Sibley | ECON | [place], [place] | | | | | [address] | | + + + + + Care Team Providers + +------+ + | Care Manager Ship Name | Role | Phone | + +------+ + PCP | Unavailable | + +------+ + Encounter Details +--------+ + + + + | Date | Type | Department | Care Team | Description | +--------+ + + + + | 03/13/ | Hospital | [facility] | | | | 1996 - | Encounter | MED CTR GENERIC OP | | | | | | CONV DEPT [address] | | | | 03/21/ | | [place], | | | | 1996 | | [place] [address] | | | | | | [phone] | | | +--------+ + + + [...]
--- OUTSIDE RECORDS SUMMARY | ~2020-07-03 | XMS | Encounter Summary ---
Demographics + + + | Address | [address] | | | [place] [address] | + + + | Home Phone | | + + + | Preferred Language | Unknown | + + + | Marital Status | | + + + | Protestant Affiliation | 1013 | + + + [...] [place] | | | | | [address] | | + + + + + Care Team Providers + +------+ + | Care Sewing Machine Repairer Helper Name | Role | Phone | + +------+ + PCP | Unavailable | + +------+ + Encounter Details +--------+ + + + + | Date | Type | Department | Care Team | Description | +--------+ + + + + | 05/25/ | Hospital | [facility] | | | | 1991 | Encounter | [facility] | | | | | | [address] | | | | | | [place] | | | | | | [address] | | | | | | [phone] | | | +--------+ + + + [...]
--- OUTSIDE RECORDS SUMMARY | ~2020-07-03 | XMS | Encounter Summary ---
Demographics + + + | Address | [address] [facility] [address] | | | [place] [address] | + + + | Home Phone | | + + + | Preferred Language | Unknown | + + + | Marital Status | | + + + | Muslim Affiliation | 1013 | + + + | Race | White | + + + | Ethnic Group | Not or | + + + Author + + + | Author | [facility] | | | and [place] | + + + | Organization | [facility] | | | and [place] | + + + | Address | Unknown | + + + | Phone | Unavailable | + + + Support + + + + + | Name | Relationship | Address | Phone | + + + + + | Araceli Sibley | ECON | [place] | | | | | [address] | | + + + + + Care Team Providers + +------+ + | Care Architectural Coating Finisher Name | Role | Phone | + +------+ + | Hari Samson DO | PCP | | + +------+ + Reason for Visit + +--------+ + | Reason | Onset | Comments | | | Date | | + +--------+ + | Chest Pain | 05/23/ | | | | 2019 | | + +--------+ + Encounter Details +--------+ + + + + | Date | Type | Department | Care Team | Description | +--------+ + + + + | 05/23/ | Telephone | [facility] | Desiree Peterson DO | Chest Pain | | 2020 | | CARDIOLOGY [place] | [address] | | | | | [address] | [place], [place] | | | | | [place], [place] | [address] | | | | | [address] | | | | | | [phone] | | | +--------+ + + + [...] encounter Miscellaneous Notes Telephone Encounter - Ashley Castellanos RN - 05/23/2020 8:26 AM PDTS - Patient called in to clinic with the following symptoms: - Chest pain for > 5 minutes - Chest tightness and heaviness - Hands and feet are grayish blue and tingling (new symptom with chest pain per patient) - Shortness of breath, feels like she cannot take a deep breath - Patient states "my heart feels like it heart races and pauses" B - Patient has seen Dr. Peterson and Dora Mendez for similar issues previously. A - Patient feels that her symptoms are worse and the tingling and change in color or her h ands is a new. Using the Chest Pain protocol patient needs to get to the ED. R - Patient does not have someone to take her to hospital, recommended patient call 911 due to symptoms. Called and verified patient was able to call and that paramedics had a rrived. *A resource useSd during telephone triage was the Adult Telephone Protocols, 4th Edition by Lincoln Cullen MD [facility]. Chest Pain protocol was used. documented in this encounter Plan of Treatment Not on filedocumented as of this encounter Visit Diagnoses Not on filedocumented in this encounter
--- OUTSIDE RECORDS SUMMARY | ~2020-07-03 | XMS | Encounter Summary ---
Demographics + + + | Address | [address] [facility] [address] | | | [place] [address] | + + + | Home Phone | | + + + | Preferred Language | Unknown | + + + | Marital Status | | + + + | Orthodox Affiliation | 1013 | + + + | Race | White | + + + | Ethnic Group | Not or | + + + Author + + + | Author | [facility] | | | and [place] | + + + | Organization | [facility] | | | and [place] | + + + | Address | Unknown | + + + | Phone | Unavailable | + + + Support + + + + + | Name | Relationship | Address | Phone | + + + + + | Araceli Sibley | ECON | [place] | | | | | [address] | | + + + + + Care Team Providers + +------+ + | Care Hedis Nurse Name | Role | Phone | + +------+ + | Basim Bolanos MD | PCP | | + +------+ + Reason for Visit +---------+--------+ + | Reason | Onset | Comments | | | Date | | +---------+--------+ + | Results | 04/05/ | | | | 2012 | | +---------+--------+ + Encounter Details +--------+ + + + + | Date | Type | Department | Care Team | Description | +--------+ + + + + | 04/05/ | Telephone | [facility] | [facility], | Results | | 2012 | | GASTROENTEROLOGY | [address] | | | | | [address] [place] | [address] | | | | | [address] [place] | [place], [place] | | | | | [address] | [address] | | | | | [phone] | | | +--------+ + + + [...] this encounter Miscellaneous Notes Telephone Encounter - Katharine Maloney RN - 04/05/2013 9:31 AM PDTCalled patient and let her know that results showed no infections patient is on omeprazole and carafate still having s ymptoms has a follow up appt with Aziza Toney26Electronically signed by Katharine Maloney RN at 0 04/05/2013 9:32 AM PDTdocumented in this encounter Plan of Treatment Not on filedocumented as of this encounter Visit Diagnoses Not on filedocumented in this encounter"
--- OUTSIDE RECORDS SUMMARY | ~2020-07-03 | XMS | Encounter Summary ---
Demographics + + + | Address | [address] [facility] | | | [place] [address] | + + + | Home Phone | | + + + | Preferred Language | Unknown | + + + | Marital Status | | + + + | Confucianism Affiliation | 1013 | + + + [...] [place], [place] | | | | | [address] | | + + + + + Care Team Providers + +------+ + | Care Social Media Executive Name | Role | Phone | + +------+ + PCP | Unavailable | + +------+ + Encounter Details +--------+ + + + + | Date | Type | Department | Care Team | Description | +--------+ + + + + | 01/25/ | Hospital | [facility] | | | | 2002 | Encounter | MED CTR XRAY [address] | | | | | | [address] | | | | | | [place] [address] | | | | | | [phone] | | | +--------+ + + + [...]
--- OUTSIDE RECORDS SUMMARY | ~2020-07-03 | XMS | Encounter Summary ---
Demographics + + + | Address | [address] [facility] | | | [place] [address] | + + + | Home Phone [...] | + + + + + | Araecli Sibley | ECON | [place] | | | | | [address] | | + + + + + Care Team Providers + +------+ + | Care Fish Hatchery Manager Name | Role | Phone | + +------+ + | Natalee Andersen NP | PCP | | + +------+ + Encounter Details +--------+ + + + + | Date | Type | Department | Care Team | Description | +--------+ + + + + | 07/06/ | Orders Only | [facility] [place] | Frandy Teresa, | Lumbago (Primary | | 2013 | | NEUROSURGERY [address] | DO [address] | Dx); S/P lumbar | | | | [address] | [address] [place], [place] | fusion | | | | [place], [place] | [address] | | | | | [address] | | | | | | [phone] | | | +--------+ + + + [...] + | Diagnosis | + + | Lumbago - Primary | + + | S/P lumbar fusion Arthrodesis status | + + documented in this encounter"
--- OUTSIDE RECORDS SUMMARY | ~2020-07-03 | XMS | Encounter Summary ---
Demographics + + + | Address | [address] [facility] | | | [place] [address] | + + + | Home Phone | | + + + | Preferred Language | Unknown | + + + | Marital Status | | + + + | Jew Affiliation | 1013 | + + + | Race | White | + + + | Ethnic Group | Not or | + + + Author + + + | Author | [facility] | | | and [place] | + + + | Organization | [facility] | | | and [place] | + + + | Address | Unknown | + + + | Phone | Unavailable | + + + Support + + + + + | Name | Relationship | Address | Phone | + + + + + | Araceli Sibley | ECON | [place] | | | | | [address] | | + + + + + Care Team Providers + +------+ + | Care Hosiery Operator Name | Role | Phone | [...] [address] | [address] [place], [place] | Hypothyroidism; | | | | [place] | [address] | GERD; BACK PAIN, | | | | [address] | | LUMBAR, WITH | | | | [phone] | | RADICULOPATHY; | | | | [...] of this encounter Plan of Treatment + +---------+--------+ + + | Name | [...]
--- OUTSIDE RECORDS SUMMARY | ~2020-07-03 | XMS | Encounter Summary ---
Demographics + + + | Address | [address] [facility] | | | [place] [address] | + + + | Home Phone [...] [place] | | | | | [address] | | + + + + + Care Team Providers + +------+ + | Care Distributed Energy Systems Consultant Name | Role | Phone | [...] + + | 08/20/ | Documentati | [facility] | Katharine Moncada, | Other (urgent | | 2019 | on | CARDIOLOGY [facility] | Technologist | report) | | | | [address] | | | | | | [place] | | | | | | [address] | | | | | | [phone] | | | +--------+ + + + [...]
--- OUTSIDE RECORDS SUMMARY | ~2020-07-03 | XMS | Encounter Summary ---
Demographics + + + | Address | [address] [facility] | | | [place] [address] | + + + | Home Phone [...] [place] | | | | | [address] | | + + + + + Care Team Providers + +------+ + | Care Maxillofacial Prosthetics Dentist Name | Role | Phone | + +------+ + | Natalee Andesren NP | PCP | | + +------+ + Encounter Details +--------+ + + + + | Date | Type | Department | Care Team | Description | +--------+ + + + + | 07/06/ | Hospital | [facility] | Latricia Feliciano | | | 2014 | Encounter | MED CTR ACUTE | D, PT [address] | | | | | PHYSICAL THERAPY | NEFTALIE [place] | | | | | [address] [place] | [address] | | | | | [place] [address] | | | | | | [phone] | | | +--------+ + + + [...] + + + +---------+ + + | Felton-3 Fatty | Take 1,000 mg by | [...]
--- OUTSIDE RECORDS SUMMARY | ~2020-07-03 | XMS | Encounter Summary ---
Demographics + + + | Address | [address] [facility] | | | [place] [address] | + + + | Home Phone [...] + + + | Author | [facility] | | | and [place] | + + + | Organization | [facility] | | | and [place] | + + + | Address | Unknown | + + + | Phone | Unavailable | + + + Support + + + + + | Name | Relationship | Address | Phone | + + + + + | Araceli Sibley | ECON | [place] | | | | | [address] | | + + + + + Care Team Providers + +------+ + | Care Director Of In Service Education Name | Role | Phone | + +------+ + | Hari Samson DO | PCP | | + +------+ + Reason for Visit + +--------+ + | Reason | Onset | Comments | | | Date | | + +--------+ + | Patient Concerns | 02/06/ | | | | 2020 | | + +--------+ + Encounter Details +--------+ + + + + | Date | Type | Department | Care Team | Description | +--------+ + + + + | 02/06/ | Telephone | [facility] | BrittDora | Patient Concerns | | 2020 | | CARDIOLOGY [place] | CAROLINE Mendez [address] | | | | | [address] | [address] | | | | | [address] | [place] [address] | | | | | [place] | [phone] | | | | | [address] | | | | | | [phone] | | | +--------+ + + + [...]
--- OUTSIDE RECORDS SUMMARY | ~2020-07-03 | XMS | Encounter Summary ---
Demographics + + + | Address | [address] [facility] | | | [place] [address] | + + + | Home Phone [...] [place] | | | | | [address] | | + + + + + Care Team Providers + +------+ + | Care Anesthesiologist Attending Name | Role | Phone | + +------+ + | Basim Bolanos MD | PCP | | + +------+ + Encounter Details +--------+ + + + + | Date | Type | Department | Care Team | Description | +--------+ + + + + | 02/22/ | Abstract | [facility] [place] | [facility], | | | 2012 | | GASTROENTEROLOGY | [address] | | | | | [address] [place] | [address] | | | | | [address] [place], [place] | [place], [place] | | | | | [address] | [address] | | | | | [phone] | | | +--------+ + + + [...]
--- OUTSIDE RECORDS SUMMARY | ~2020-07-03 | XMS | Clinical Summary ---
Demographics + + + | Address | [address] [facility] | | | [place] [address] | + + + | Home Phone [...] [place] | | | | | [address] | | + + + + + Care Team Providers + +------+ + | Care Cutting Department Supervisor Name | Role | Phone | + +------+ + PCP | Unavailable | + +------+ + Source Comments EDWARD is fully live on both [facility] Ambulatory and [facility] InPatient.[facility] Allergies Not on File Medications Not on [...] + + + Last Filed Vital Signs Not on file Plan of Treatment + + +-------+ + | Health Maintenance | Due Date | Last | Comments | | | | Done | | + + +-------+ + | Influenza (Flu) | | | | | vaccination (#1) | 0 | | | + + +-------+ + | Pneumococcal | Aged Out | | No longer eligible based on patient's age | | vaccination | | | to complete this topic | + + +-------+ + Results Not on filefrom Last 3 [...] + +--------+ | MEDICARE | MEDICA | [id number] | 02/22/20 | [phone] | [address] | Medica | | | RE A & | | 15-Pre | 1 | [address] | [address] | | | B | | sent | | [place] | | | | | | | | [address] | | + +--------+ +--------+ + +--------+ + +--------+ +--------+ + + | Guarantor Name | Accoun | Relation to | Date | Phone | Billing Address | | | t Type | Patient | of | | | | | | | | | | + +--------+ +--------+ + + | CINDY ARNDT | Person | Self | [birth year] | [address] | | | al/Fam | | 1955 | [phone] | [address] [place] | | | devonte | | | 5 (Home) | [address] | + +--------+ +--------+ + +"
--- OUTSIDE RECORDS SUMMARY | ~2020-07-03 | XMS | Encounter Summary ---
Demographics + + + | Address | [address] [facility] | | | [place] [address] | + + + | Home Phone [...] [place] | | | | | [address] | | + + + + + Care Team Providers + +------+ + | Care Outsole Beveler Name | Role | Phone | + +------+ + PCP | Unavailable | + +------+ + Encounter Details +--------+ + + + + | Date | Type | Department | Care Team | Description | +--------+ + + + + | 10/29/ | Hospital | [facility] | | | | 1994 | Encounter | MED CTR LABORATORY | | | | | | [address] | | | | | | [place] | | | | | | [address] | | | | | | [phone] | | | +--------+ + + + [...]
--- OUTSIDE RECORDS SUMMARY | ~2020-07-03 | XMS | Encounter Summary ---
Demographics + + + | Address | [address] [facility] | | | [place] [address] | + + + | Home Phone [...] [place], [place] | | | | | [address] | | + + + + + Care Team Providers + +------+ + | Care Train Dispatcher Name | Role | Phone | + +------+ + PCP | Unavailable | + +------+ + Encounter Details +--------+ + + + + | Date | Type | Department | Care Team | Description | +--------+ + + + + | 05/23/ | Hospital | [facility] | | | | 1991 | Encounter | MED CTR XRAY [address] | | | | | | [address] | | | | | | [place] [address] | | | | | | [phone] | | | +--------+ + + + [...]
--- OUTSIDE RECORDS SUMMARY | ~2020-07-03 | XMS | Encounter Summary ---
Demographics + + + | Address | [address] [facility] | | | [place] [address] | + + + | Home Phone [...] [place] | | | | | [address] | | + + + + + Care Team Providers + +------+ + | Care Supplies Packer Name | Role | Phone | [...] + + | 01/02/ | Telephone | [facility] | Frandy Teresa, | Other (6m x-ray ) | | 2014 | | NEUROSURGERY [address] | DO [address] | | | | | [address] | [address] [place], [place] | | | | | [place], [place] | [id number] | | | | | [address] | | | | | | [phone] | | | +--------+ + + + [...] for review. The order was faxed to [facility] today. She will let us know when this has been completed. SHAYNE ARAGON documented in this encounter Plan of Treatment Not on filedocumented as of this encounter Visit Diagnoses Not on filedocumented in this encounter"
--- OUTSIDE RECORDS SUMMARY | ~2020-07-03 | XMS | Encounter Summary ---
Demographics + + + | Address | [address] [facility] [address] | | | [place] [address] | + + + | Home Phone [...] [place], [place] | | | | | [address] | | + + + + + Care Team Providers + +------+ + | Care Welder First Class Name | Role | Phone | + +------+ + PCP | Unavailable | + +------+ + Encounter Details +--------+ + + + + | Date | Type | Department | Care Team | Description | +--------+ + + + + | 07/23/ | Hospital | [facility] | | | | 1992 - | Encounter | MED CTR GENERIC PSY | | | | | | CONV DEPT [address] | | | | 07/28/ | | [place], | | | | 1992 | | [place] [address] | | | | | | [phone] | | | +--------+ + + + [...]
--- OUTSIDE RECORDS SUMMARY | ~2020-07-03 | XMS | Encounter Summary ---
Demographics + + + | Address | [address] [facility] [address] | | | [place] [address] | + + + | Home Phone [...] [place] | | | | | [address] | | + + + + + Care Team Providers + +------+ + | Care Aviation Project Engineer Name | Role | Phone | + +------+ + PCP | Unavailable | + +------+ + Encounter Details +--------+ + + + + | Date | Type | Department | Care Team | Description | +--------+ + + + + | 12/09/ | Hospital | [facility] | Serafin Bautista | | | 2011 | Encounter | MED CTR XRAY [address] | T, [address] | | | | | [place] | [address] [place] | | | | | [place] [address] | [address] | | | | | [phone] | | | +--------+ + + + [...] Performed At | + + + | [facility] | [facility] | | [address] [facility] | [facility] | | PROCEDURE NOTE EPIDURAL | DIAG [...] Manohar Martinez Conversion - 11/30/2013 4:45 PM [facility] | | Diagnostic Imaging Department | | [address] [facility] | | | | | | | [...]
--- OUTSIDE RECORDS SUMMARY | ~2020-07-03 | XMS | Encounter Summary ---
Demographics + + + | Address | [address] [facility] [address] | | | [place] [address] | + + + | Home Phone [...] [place] | | | | | [address] | | + + + + + Care Team Providers + +------+ + | Care Retail Service Representative Name | Role | Phone [...] + + | 08/13/ | Documentati | [facility] | Katharine Moncada, | Other (urgent | | 2019 | on | CARDIOLOGY GENESIS | Technologist | report) | | | | [address] | | | | | | [place] | | | | | | [address] | | | | | | [phone] | | | +--------+ + + + [...]
--- OUTSIDE RECORDS SUMMARY | ~2020-07-03 | XMS | Encounter Summary ---
Demographics + + + | Address | [address] [facility] | | | [place] [address] | + + + | Home Phone [...] [place] | | | | | [address] | | + + + + + Care Team Providers + +------+ + | Care Gang Bore Operator Name | Role | Phone | [...] | 08/15/ | Documentati | [facility] | Katharine Moncada, | Other (urgent | | 2019 | on | CARDIOLOGY GENESIS | Technologist | report) | | | | [address] | | | | | | [place] | | | | | | [address] | | | | | | [phone] | | | +--------+ + + + [...]
--- OUTSIDE RECORDS SUMMARY | ~2020-07-03 | XMS | Encounter Summary ---
Demographics + + + | Address | [address] [facility] [address] [facility] [address] | | | [place] [address] | + + + | Home Phone [...] [place] | | | | | [address] | | + + + + + Care Team Providers + +------+ + | Care Confectionery Cooker Name | Role | Phone | + [...] | | [address] | [place], [place] | | | | | [place], [place] | [address] | | | | | [address] | | | | | | [phone] | | | +--------+ + + + [...] 0.83 m/s | | | MV Dec [place]: 2.85 m/s2 MV DecT: 282.89 ms MV E Teodoro: 0.80 | | | m/s MV E/A Ratio: 0.96 E/E' Sept: 12.59 E' Lat: 0.08 m/s | | | E' Sept: 0.06 m/s RAP: 10 mmHg RV S': 0.11 m/s RVSP: | | | 27.96 mmHg TR maxP.96 mmHg TR Vmax: 2.11 m/s | | | Continuing Education Director: Authenticated by: Desiree Peterson MD Report Date/Time: | | | -- [id number] | | + + + + + [...] (A-L): 19.60 | | ml/m2LAAs A2C: 15.44 [id number] A-L A2C: 43.84 mlLAESV MOD A2C: 42.12 mlLALs A2C: | | 4.61 cmLAAs A4C: 14.18 [id number] A-L A4C: 38.73 mlLAESV MOD A4C: 37.04 mlLALs A4C: | | 4.41 cmRAAs: 12.15 [id number] A-L: 28.54 mlRAESV MOD: 28.66 mlRALs: 4.39 | | cmTAPSE: 2.42 cmAV Env.Ti: 293.94 msAV maxP.18 mmHgAV meanP.09 mmHgAV | | Vmax: 1.88 m/Eddie Vmean: 1.25 m/Eddie VTI: 36.84 cmAVA Vmax: 2.06 cm2AVA (VTI): | | 2.24 nn2KONV Vmax: 0.00 cm2/m2AVAI (VTI): 0.00 cm2/m2LVOT Env.Ti: 299.59 msLVOT | | maxP.52 mmHgLVOT meanP.65 mmHgLVSI Dopp: 38.55 ml/m2LVSV Dopp: 82.89 | | mlLVOT Vmax: 1.27 m/sLVOT Vmean: 0.91 m/sLVOT VTI: 27.27 cmMV A Teodoro: 0.83 m/sMV | | Dec [place]: 2.85 m/s2MV DecT: 282.89 msMV E [place]: 0.80 m/sMV E/A Ratio: 0.96E/E' | | Sept: 12.59E' Lat: 0.08 m/sE' Sept: 0.06 m/sRAP: 10 mmHgRV S': 0.11 m/sRVSP: | | 27.96 mmHgTR maxP.96 mmHgTR Vmax: 2.11 m/s Continuing Education Director:Authenticated by: | | Desiree Peterson MDReport Date/Time: -- [id number]:[id number] IMPRESSION: 1. Overall left | | ventricular [...] A Te[place]: 0.83 m/s | |MV Dec [place]: 2.85 m/s2 | |MV DecT: 282.89 ms | |MV E [place]: 0.80 m/s | |MV E/A Ratio: 0.96 | |E/E' Sept: 12.59 | |E' Lat: 0.08 m/s | |E' Sept: 0.06 m/s | |RAP: 10 mmHg | |RV S': 0.11 m/s | |RVSP: 27.96 mmHg | |TR maxP.96 mmHg | |TR Vmax: 2.11 m/s | | | |Continuing Education Director: | |Authenticated by: Desiree Peterson MD | |Report Date/Time: -- [id number]:[id number] | | | |IMPRESSION: | |1. Overall [...]
--- OUTSIDE RECORDS SUMMARY | ~2020-07-03 | XMS | Encounter Summary ---
Demographics + + + | Address | [address] [facility] | | | [place] [address] | + + + | Home Phone [...] [place] | | | | | [address] | | + + + + + Care Team Providers + +------+ + | Care Product Development Actuary Name | Role | Phone | + +------+ + PCP | Unavailable | + +------+ + Encounter Details +--------+ + + + + | Date | Type | Department | Care Team | Description | +--------+ + + + + | 05/23/ | Hospital | [facility] | [place], | | | 2011 | Encounter | MED CTR XRAY [address] | MD [address] | | | | | [place] | [place] | | | | | [place] [address] | [address] | | | | | [phone] | | | +--------+ + + + [...] mg by mouth | | 0 | 06/08/20 | | | 20 mg tablet | [...] + + + +---------+ + + | [place]-3 Fatty | Take 1,000 mg by | [...] Performed At | + + + | [facility] Diagnostic Imaging Department | [facility] | | [address], [facility] | [facility] | | LUMBAR SPINE MR WITHOUT CONTRAST, [...] Transcribed Date/Time: | | | 05/23/2012 16:55 Load Tallier: <Electronically Signed | | | by Adriano Anne MD> 05/23/12 8872 | | + + + + + | Procedure Note | + + | Manohar Martinez Conversion - 11/30/2013 5:47 PM [facility] | | Diagnostic Imaging Department [address] [place] [address] | | LUMBAR SPINE MR WITHOUT CONTRAST, [...] 05/23/2012 16:37Transcribed Date/Time: 05/23/2012 | | 16:55Transcriptionist: JOE<Electronically Signed by Adriano Anne MD> 05/23/12 | [...] 16:37 | |Transcribed Date/Time: 05/23/2012 16:55 | |Load Tallier: | |<Electronically Signed by Adriano Anne MD> 05/23/12 1725 | + + + +---------+ + + | Performing | Address | City/State/Zipcode | Phone Number | | Organization | | | | + +---------+ + + | [place] | | | | | [place] | | | | + +---------+ + + documented in this encounter Visit Diagnoses Not on filedocumented in this encounter"
--- OUTSIDE RECORDS SUMMARY | ~2020-07-03 | XMS | Encounter Summary ---
Demographics + + + | Address | [address] [facility] [address] | | | [place] [address] | + + + | Home Phone [...] [place] | | | | | [address] | | + + + + + Care Team Providers + +------+ + | Care Magneto Electrician Name | Role | Phone | [...] + + documented as of this encounter Procedure Notes Interface, Photographic Restorer In - 10/24/2006 3:[address] [id number] [facility] OPERATION RECORD Med Rec No.: [id number] Date: 10/28/1998 Name: Cindy Arndt ATTENDING SURGEON: Lazaro Tello M.D. ASSISTANTS: Jose Dawson M.D. POSTOPERATIVE DIAGNOSIS(ES): Closure dacryocystorhinostomy ostium and flaccid canaliculi. OPERATIONS PERFORMED: Reinsertion of silicone tubes. SPECIMEN(S) REMOVED: See below. ANESTHESIA: Nasal spray of 0.5% Marcaine with adrenalin, 2% Xylocaine local infiltration and monitored anesthesia care. COMPLICATIONS: None. PROCEDURE: The patient was brought to the Operating Room and prepped and draped in the usual manner and anesthesia was as listed above. After spraying the nose, the Quickert probes were utilized. The first probe was placed through the lower canaliculus until it was visualized in the dacryocystorhinostomy ostium, grasped with a hemostat and pulled out through the nose. The other probe was placed through the upper canaliculus in the same manner. The probes were removed and the silicone was tied and allow to retract. Some bleeding occurred in the nasal mucosa. Cautery was applied to the nasal septum and near the dacryocystorhinostomy ostium with silver nitrate. Following this, some Vaseline gauze was packed into the nostril to control the bleeding. The bleeding was under control. The patient was then allowed to return back to the Postanesthesia Care Unit in good condition. Lazaro Tello M.D. Vida A cc: documentyesy d in this encounter Plan of Treatment Not [...] | Transcriptions | + + | Interface, Photographic Restorer In - 10/24/2006 3:09 AM PST | | [address] | | [place], [place] [address] [place] | | [facility]ORDMed Rec No.: [id number] Date: | | 10/28/1998Name: [place] Arndt SURGEON: Lazaro Tello | | DoreenASSISTANTS: Jose Dawson M.D.POSTOPERATIVE | [...] in good | | condition. Lazaro Tello M.D.Carlos A: 10/28/1998T: | | 10/28/1998 10:33 Acc: | [...] | Lazaro Tello M.D. | | | |Vida | | | | A | | | |cc: | + + documented in this encounter Visit Diagnoses Not on filedocumented in this encounter"
--- OUTSIDE RECORDS SUMMARY | ~2020-07-03 | XMS | Encounter Summary ---
Demographics + + + | Address | [address] [facility] | | | [place] [address] | + + + | Home Phone [...] [place] | | | | | [address] | | + + + + + Care Team Providers + +------+ + | Care Duck Bill Operator Name | Role | Phone | [...] | Services | ogy | Epigastric | [facility], | Tyrese Shelley MD | | | Required | | abdominal | [place], | [address], | | | | | pain GERD | DIGITAL PRODUCTION MANAGER [address] | [address] | | | | | (gastroesoph | [address] | [place], | | | | | ageal reflux | [address] | [place] [address] | | | | | disease) | [place], | Phone: | | | | | Fatty liver | [place] [address] | [phone] | | | | | DM | Phone: | Fax: | | | | | (diabetes | [phone] | [phone] | | | | | mellitus) | Fax: | | | | | | (HCC) | [phone] | | +--------+ + + + + + Reason for Visit + + + | Reason | Comments | + + + | Gastroesophageal | epigastric pain | | Reflux | | + + + Encounter Details +--------+---------+ + + + | Date | Type | Department | Care Team | Description | +--------+---------+ + + + | 03/06/ | Office | [facility] | [facility], | Epigastric abdominal | | 2012 | Visit | GASTROENTEROLOGY | FORTUNATO Thomas [address] | pain (Primary Dx); | | | | [address] | [address] | GERD | | | | [address] [place], [place] | [place] | (gastroesophageal | | | | [address] | [address] | reflux disease); | | | | [phone] | | Fatty liver; DM | | [...] years ago by Dr. Saravanan Tsai, in [facility]. Colonoscopy was done 05/[address] Hamlin in [facility]. Allergies Allergen Reactions Demerol Duloxetine Erythromycin Fluoxetine [...] 1992 [facility], Tonsillectomy Dilatation & curretage 1973 Family [...] encounter Miscellaneous Notes Miscellaneous - ONBASE SCAN [facility] - 03/06/2013 12:00 AM PDT iscellaneous - ONBASE SCAN [facility] - 03/06/2013 12:00 AM PDTEle ctronically signed by Mariah Schulte at 04/09/2013 9:48 AM PDTMiscellaneous - ONBASE SCAN [facility] - 03/06/2013 12:00 AM PDT d ocumented in this encounter Plan of Treatment + [...]
--- OUTSIDE RECORDS SUMMARY | ~2020-07-03 | XMS | Encounter Summary ---
Demographics + + + | Address | [address] [facility] | | | [place] [address] | + + + | Home Phone [...] [place], [place] | | | | | [address] | | + + + + + Care Team Providers + +------+ + | Care Executive Account Manager Name | Role | Phone | + +------+ + PCP | Unavailable | + +------+ + Encounter Details +--------+ + + + + | Date | Type | Department | Care Team | Description | +--------+ + + + + | 07/17/ | Hospital | [facility] | | | | 1997 - | Encounter | MED CTR GENERIC PSY | | | | | | CONV DEPT [address] | | | | 07/25/ | | [place], | | | | 1997 | | [place] [address] | | | | | | [phone] | | | +--------+ + + + [...]
--- OUTSIDE RECORDS SUMMARY | ~2020-07-03 | XMS | Encounter Summary ---
Demographics + + + | Address | [address] [facility] | | | [place] [address] | + + + | Home Phone [...] [place] | | | | | [address] | | + + + + + Care Team Providers + +------+ + | Care Magazine Keeper Name | Role | Phone | [...] + + | 07/10/ | Telephone | [facility] | Frandy Teresa, | Imaging Only (1 year | | 2014 | | NEUROSURGERY [address] | DO [address] | x-ray ) | | | | [address] | [address] [place], [place] | | | | | [place], [place] | [id number] | | | | | [address] | | | | | | [phone] | | | +--------+ + + + [...]
--- OUTSIDE RECORDS SUMMARY | ~2020-07-03 | XMS | Encounter Summary ---
Demographics + + + | Address | [address] [facility] [address] | | | [place] [address] | + + + | Home Phone [...] [place] | | | | | [address] | | + + + + + Care Team Providers + +------+ + | Care Amalgamator Name | Role | Phone | + [...] updated | | | | | [address] [facility], | address | | | | | [address] [place] | | | | | | [place] [address] | | | | | | [phone] | | | +--------+ + + + [...] RN - 03/04/2015 9:39 AM PDTPatient called amarjit corrales if she still needs to take her Plavix since she was told she did not have a stroke. Per Dr. Newman, patient should remain on Plavix for TIA. Patient verbalized understanding.El ectronically signed by Keiko Thompson RN at 03/04/2015 9:41 AM PDTdocumented in this e ncounter Plan of Treatment Not on filedocumented as of this encounter Visit Diagnoses Not on filedocumented in this encounter"
--- OUTSIDE RECORDS SUMMARY | ~2020-07-03 | XMS | Encounter Summary ---
Demographics + + + | Address | [address] [facility] [address] | | | [place] [address] | + + + | Home Phone [...] [place] | | | | | [address] | | + + + + + Care Team Providers + +------+ + | Care Safety Tech Name | Role | Phone | + [...] + + | 07/24/ | Telephone | [facility] | sAhley Chávez | Other (Patient is | | 2018 | | CARDIOLOGY GENESIS Abad, Lease Out Man | worried about paying | | | | [address] | | for monitor. ) | | | | [place] | | | | | | [address] | | | | | | [phone] | | | +--------+ + + + [...] Miscellaneous Notes Telephone Encounter - Ashley Chávez, Lease Out Man - 07/24/2019 11:13 AM MELANIEPatigutierrez t says that medicare's portion to pay [...] gals to see what can be done. JKASSIE:PULMONARY PHYSICIAN-AAMA. doc umented in this encounter Plan of Treatment Not on filedocumented as of this encounter Visit Diagnoses Not on filedocumented in this encounter"
--- OUTSIDE RECORDS SUMMARY | ~2020-07-03 | XMS | Encounter Summary ---
Demographics + + + | Address | [address] [facility] [address] | | | [place] [address] | + + + | Home Phone [...] [place], [place] | | | | | [address] | | + + + + + Care Team Providers + +------+ + | Care Cyber Software Engineer Name | Role | Phone | + +------+ + PCP | Unavailable | + +------+ + Encounter Details +--------+ + + + + | Date | Type | Department | Care Team | Description | +--------+ + + + + | 06/17/ | Hospital | [facility] | | | | 1991 - | Encounter | MED CTR GENERIC PSY | | | | | | CONV DEPT [address] | | | | 06/18/ | | [place], | | | | 1991 | | [place] [address] | | | | | | [phone] | | | +--------+ + + + [...]
--- OUTSIDE RECORDS SUMMARY | ~2020-07-03 | XMS | Encounter Summary ---
Demographics + + + | Address | [address] [facility] [address] | | | [place] [address] | + + + | Home Phone [...] [place] | | | | | [address] | | + + + + + Care Team Providers + +------+ + | Care Substation Operator Transforming Name | Role | Phone | + [...] [address] | | | | | [address] [place], [place] | [place], [place] | | | | | [address] | [address] | | | | | [phone] | | | +--------+ + + + [...]
--- OUTSIDE RECORDS SUMMARY | ~2020-07-03 | XMS | Encounter Summary ---
Demographics + + + | Address | [address] [facility] [address] | | | [place] [address] | + + + | Home Phone [...] [place] | | | | | [address] | | + + + + + Care Team Providers + +------+ + | Care Sales Route Driver Name | Role | Phone | + +------+ + | Adriano Patrick MD | PCP | | + +------+ + Reason for Visit +--------+--------+ + | Reason | Onset | Comments | | | Date | | +--------+--------+ + | Other | 10/25/ | Patient to stay on the same dose. | | | 2019 | | +--------+--------+ + Encounter Details +--------+ + + + + | Date | Type | Department | Care Team | Description | +--------+ + + + + | 10/25/ | Telephone | [facility] | Ashley Chávez | Other (Patient to | | 2019 | | CARDIOLOGY GENESIS Abad, [place] | stay on the same | | | | [address] | | dose. ) | | | | [place] | | | | | | [address] | | | | | | [phone] | | | +--------+ + + + [...] Miscellaneous Notes Telephone Encounter - Ashley Chávez [place] - 10/25/2019 8:44 AM PSTCall m cierra to patient to advise of Dr. Peterson's notes. Patient wanted to talk more. I told patient that if she is feeling anxiety at all, she can talk to me for emotional supp ort or contact PCP, but as of right now, her heart looked good from the last time Dr saw her . Patient said she has bad anxiety. I tried to calm her down and talk about strategies to deal with anxiety, but patient just s tarted crying and hung up. Would not answer my calling her again. BRODY:CATHETERIZATION LABORATORY TECHNICIAN-AAMA. el ephone Encounter - Ashley Chávez [place] - 10/25/2019 8:40 AM PST----- Mess age from Desiree Peterson DO sent at 10/24/2019 8:42 PM PST ----- Regarding: RE: Patient's Metoprolol. We can stay on the same dose of metoprolol for now. Thanks ----- Message ----- From: Ashley Chávez [place] Sent: 10/23/2019 10:52 AM PST To: Desiree Peterson DO Subject: Patient's Metoprolol. Patient called because she is wondering if the Metoprolol is working? She said you told her to call us if the Metoprolol 50mg is not helping. Patient called to see if you think metoprolol needs to be increased? I was able to talk patient down our of anxiety attack for now, and she sounded more at ease when we hung up. Then I told her I would talk to you and call her back when I have your recommendations. Please advise. Thank you! doc umented in this encounter Plan of Treatment Not on filedocumented as of this encounter Visit Diagnoses Not on filedocumented in this encounter"
--- OUTSIDE RECORDS SUMMARY | ~2020-07-03 | XMS | Encounter Summary ---
Demographics + + + | Address | [address] [facility] [address] | | | [place] [address] | + + + | Home Phone [...] [place] | | | | | [address] | | + + + + + Care Team Providers + +------+ + | Care Safety Supervisor Name | Role | Phone | [...] | | | | | | | [address] | | | | | | | Phone: | | | | | | | [phone] | | | | | | | Fax: | | | | | | | [phone] | | +--------+ + + + + + Reason for Visit + + + | Reason | Comments | + + + | Follow-up | 3 mo po | + + + Encounter Details +--------+---------+ + + + | Date | Type | Department | Care Team | Description | +--------+---------+ + + + | 09/27/ | Office | [facility] | Frandy Teresa, | Lumbar spondylosis | | 2013 | Visit | NEUROSURGERY [address] | DO [address] | (Primary Dx); S/P | | | | [address] | [address] [place], [place] | lumbar fusion | | | | [place], [place] | [address] | | | | | [address] | | | | | | [phone] | | | +--------+---------+ + + + [...] [facility] [place] [place], [address] [place], [place] [address] FAX: NEUROSURGERY FOLLOW-UP CHIEF COMPLAINT: Chief Complaint [...] FOR THE CRIMINALLY INSANE MAIN OR CURRENT MEDICATIONS: Current Outpatient Prescriptions [...] Take 15 mg by mouth nightl y. [place]-3 Fatty Acids (FISH OIL CONCENTRATE) 1000 MG [...] DO, 09/27/2014 11:30 documented in this encounter Miscellaneous Notes Miscellaneous - ONBASE SCAN [facility] - 09/27/2014 12:00 AM PST documented in this encounter Plan of Treatment + +---------+--------+ [...]
--- OUTSIDE RECORDS SUMMARY | ~2020-07-03 | XMS | Encounter Summary ---
Demographics + + + | Address | [address] [facility] | | | [place] [address] | + + + | Home Phone [...] [place] | | | | | [address] | | + + + + + Care Team Providers + +------+ + | Care Marketing Account Manager Name | Role | Phone | + +------+ + | Adriano Patrick MD | PCP | | + +------+ + Encounter Details +--------+ + + + + | Date | Type | Department | Care Team | Description | +--------+ + + + + | 05/16/ | Orders Only | [facility] | Provider, | | | 2018 | | SYSTEM GENERIC OP | MD [address] | | | | | CONVERSION [address] | [address] | | | | | [address] [place], [place] | [place] [address] | | | | | [address] | | | | | | [phone] | | | +--------+ + + + [...]
--- OUTSIDE RECORDS SUMMARY | ~2020-07-03 | XMS | Encounter Summary ---
Demographics + + + | Address | [address] [facility] | | | [place] [address] | + + + | Home Phone [...] [place] | | | | | [address] | | + + + + + Care Team Providers + +------+ + | Care Supervisory Clerk Name | Role | Phone | + +------+ + PCP | Unavailable | + +------+ + Encounter Details +--------+ + + + + | Date | Type | Department | Care Team | Description | +--------+ + + + + | 05/29/ | Hospital | [facility] | | | | 1991 | Encounter | MED CTR LABORATORY | | | | | | [address] | | | | | | [place] | | | | | | [address] | | | | | | [phone] | | | +--------+ + + + [...]
--- OUTSIDE RECORDS SUMMARY | ~2020-07-03 | XMS | Encounter Summary ---
Demographics + + + | Address | [address] [facility] | | | [place] [address] | + + + | Home Phone [...] [place] | | | | | [address] | | + + + + + Care Team Providers + +------+ + | Care Manufacturing Team Leader Name | Role | Phone | [...] + + | 07/19/ | Office | [facility] | Desiree Peterson DO | Syncope, unspecified | | 2019 | Visit | CARDIOLOGY [place] | [address] | syncope type | | | | [address] | [place], [place] | (Primary Dx); | | | | [address] [address] | [address] | Essential | | | | [place] | | hypertension; | | | | [address] | | Irregular heartbeat | | | | [phone] | | | +--------+---------+ + + + [...] Peterson DO - 07/19/2019 10:40 AM PDT [facility] Cardiology Follow Up Note Reason [...] rtake in exercise. She recently got a Innolumeua and has been walking him more regularly. [...] by mouth daily. Blood Glucose Monitoring Suppl ([employer] VERIO FLEX SYSTEM) w/Device KIT by Does not ap ply route. budesonide-formoterol (SYMBICORT) 160-4.5 MCG/ACT inhaler Inhale 2 puffs into the lungs 2 (two) times daily. Calcium Carbonate Antacid 1000 MG tablet Take 1,000 mg by mouth 3 (three) times daily. Cholecalciferol (VITAMIN D3) 36770 units CAPS Take by mouth once a [...]
--- OUTSIDE RECORDS SUMMARY | ~2020-07-03 | XMS | Encounter Summary ---
Demographics + + + | Address | [address] [facility] | | | [place] [address] | + + + | Home Phone [...] [place], [place] | | | | | [address] | | + + + + + Care Team Providers + +------+ + | Care Bible Worker Name | Role | Phone | + +------+ + PCP | Unavailable | + +------+ + Encounter Details +--------+ + + + + | Date | Type | Department | Care Team | Description | +--------+ + + + + | 04/16/ | Hospital | [facility] | | | | 1997 | Encounter | MED CTR XRAY [address] | | | | | | [place] | | | | | | [place] [address] | | | | | | [phone] | | | +--------+ + + + [...]
--- OUTSIDE RECORDS SUMMARY | ~2020-07-03 | XMS | Encounter Summary ---
Demographics + + + | Address | [address] [facility] | | | [place] [address] | + + + | Home Phone [...] [place] | | | | | [address] | | + + + + + Care Team Providers + +------+ + | Care Roll Cutter Name | Role | Phone | + +------+ + PCP | Unavailable | + +------+ + Encounter Details +--------+ + + + + | Date | Type | Department | Care Team | Description | +--------+ + + + + | 07/17/ | Hospital | [facility] | | | | 1997 | Encounter | MED CTR EMERGENCY | | | | | | CENTER [address] | | | | | | [place] | | | | | | [address] | | | | | | [phone] | | | +--------+ + + + [...]
--- OUTSIDE RECORDS SUMMARY | ~2020-07-03 | XMS | Encounter Summary ---
Demographics + + + | Address | [address] [facility] | | | [place] [address] | + + + | Home Phone [...] [place] | | | | | [address] | | + + + + + Care Team Providers + +------+ + | Care Cardiovascular Specialist Name | Role | Phone | [...] + + | // | Emergency | [facility] | [place], | CVA (cerebral | | 2015 | | MED CTR EMERGENCY | Davey Simons MD [address] | vascular accident) | | | | CENTER [address] | [address] [facility] | ([facility]) (Primary Dx) | | | | [place], [place] | [place] [address] | | | | | [address] | [phone] | | | | | [phone] | | | +--------+ + + + [...] + + + +---------+ + + | [place]-3 Fatty | Take 1,000 mg by | [...] [facility] Encounter Note [address] [place] [address] PCP:Natalee Andersen [phone] CHIEF COMPLAINT: Chief Complaint Patient presents with Facial Droop ED Room: ED07/ED07 [facility] Cindy Arndt is a 59 y.o. female who presents to the Emergency Department accompanied by a friend from [place] for evaluation. The patient recently had symptoms that were diagno sed as stroke or TIA. The symptoms were of a weakness and numbness in her right arm and leg . She was hospitalized for 4 days in [place] for this. She was discharged and subsequent ly has had 2 or 3 emergency department visits in [place] for symptoms diagnosed as TIAs. These have been recurrent and worsening right arm and leg weakness and then today with some right facial drooping and drooling. She is on Aggrenox. She had a full workup in [place] including brain CT, brain MRI, and carotid [...] DO; Location: [facility] MAIN OR CURRENT MEDICATIONS Discharge [...] or Severe Contraindications. Consult references such as [employer] for furthe r information. Magnesium 250 MG [...] or Severe Contraindications. Consult references such as [employer] for further information. Multiple Vitamins-Minerals (CENTRUM SILVER PO) Take 1 tablet by mouth Daily.Historical Med OLANZapine zydis (ZYPREXA ZYDIS) 15 MG disintegrating tablet Take 15 mg by mouth nightly. [place]-3 Fatty Acids (FISH OIL CONCENTRATE) 1000 MG [...] were reviewed along with EMS notes and senior living record s if applicable. (See chart for details) Medications and Allergy list reviewed. Nurses note and old records were reviewed The patient was seen and examined, I was finally able to get [facility] which showed a normal MRI and [...] accident) (HCC) Follow-up Information Follow up with [facility]. Specialty: Emergency Medicine Contact information: [address] [facility] [address] Follow up with [facility]. Specialty: Emergency Medicine Contact information: [address] [facility] [address] Follow up with Natalee Andersen NP. Specialty: Family Nurse Practitioner Contact information: [address] [place] [address] Schedule an appointment as soon as possible for a visit with Baudilio Newman MD. Specialty: Neurology Contact information: [address] [facility] [id number] Discharge Medication List as of 02/26/2015 15:21 Davey Varela MD 02/26/15 1732 do cumented in this encounter Miscellaneous Notes ED Triage Notes - Yesenia Monroy RN - 02/26/2015 1:11 PM PDTC/O right sided facial mahendra op and numbness to right arm and leg onset yesterday at approximately 1800. Pt was seen in [facility] by her primary care physician [...] mL/min/1.73m2 | [facility] | | | [place] | RATE,ESTIMATED | | MEDICAL | | | | mL/min/1.24g6Wxeo than | | CENTER - | | [...] [address] | [place] | [phone] | | [facility] | | [address] | | | - LABORATORY | | [...] [address] | [place] | [phone] | | [facility] | | [address] | | | - LABORATORY | | [...] | | Emergency -numbness/facial droop 02/26/2015 08:15 [facility] | | | [facility] 02/19/2015 | | | 10:15 [facility] | | | -Diabetes [...] as uncontrolled 02/17/2015 | | | 08:22 [facility] Emergency | | | -Long-term (current) [...] and uterus 02/14/2015 | | | 09:56 [facility] Emergency | | | -Disturbance of [...] residual deficits | | | 02/01/2015 21:38 [facility] | | | Emergency 01/22/2015 14:00 [facility] | | | Urgent Care -Myalgia [...] intervertebral disc | | | 01/16/2015 12:15 [facility] | | | Urgent Care -Unspecified [...] other | | | medications 01/07/2015 11:45 [facility] | | | Urgent Care -Unspecified [...] acquired hypothyroidism 12/30/2014 | | | 17:54 [facility] Emergency | | | -Obstructive sleep [...] essential hypertension | | | 12/30/2014 14:30 [facility] | | | Urgent Care -Cramp [...] | | -Cramp of limb 11/29/2014 16:15 [facility] | | | Urgent Care -Esophageal [...] ------ | | | --------- 1 0 [facility]. | | | [facility] 6 0 [facility]. | | | [facility] 7 0 Total | | | Note: Visits indicate total known visits. Medicaid [place] Dx are the | | | number of primary diagnoses on the [facility]'s non-emergent dx list. | | [...]
--- OUTSIDE RECORDS SUMMARY | ~2020-07-03 | XMS | Encounter Summary ---
Demographics + + + | Address | [address] [facility] | | | [place] [address] | + + + | Home Phone [...] [place] | | | | | [address] | | + + + + + Care Team Providers + +------+ + | Care Tree Inspector Name | Role | Phone | [...] [place] | | | | | | [address] | | | | | | [phone] | | | +--------+ + + + [...]
--- OUTSIDE RECORDS SUMMARY | ~2020-07-03 | XMS | Encounter Summary ---
Demographics + + + | Address | [address] [facility] | | | [place] [address] | + + + | Home Phone [...] [place] | | | | | [address] | | + + + + + Care Team Providers + +------+ + | Care Ehs Engineer Name | Role | Phone | + +------+ + | Adriano Patrick MD | PCP | | + +------+ + Reason for Visit +--------+--------+ + | Reason | Onset | Comments | | | Date | | +--------+--------+ + | Other | 08/30/ | Patient wants to take monitor off. | | | 2019 | | +--------+--------+ + Encounter Details +--------+ + + + + | Date | Type | Department | Care Team | Description | +--------+ + + + + | 08/30/ | Telephone | [facility] | Ashley Chávez | Other (Patient wants | | 2018 | | CARDIOLOGY [place] Abad, Ruby On Rails Web Developer | to take monitor | | | | [address] | | off. ) | | | | [address] | | | | | | [place] | | | | | | [address] | | | | | | [phone] | | | +--------+ + + + [...] Miscellaneous Notes Telephone Encounter - Ashley Chávez, Ruby On Rails Web Developer - 08/30/2019 9:19 AM Rory foster called because she wanted to know if she could take her monitor off. I spoke with Dr Peterson, and she says that patient is ok to take the monitor off. She has worn the monitor for 3 weeks now. Call made to patient to advise of Dr. Peterson's notes. Patient was thankful for the news. Patient stated understanding JKASSIE:MAP COLORER-AAMA. c umented in this encounter Plan of Treatment Not on filedocumented as of this encounter Visit Diagnoses Not on filedocumented in this encounter"
--- OUTSIDE RECORDS SUMMARY | ~2020-07-03 | XMS | Encounter Summary ---
Demographics + + + | Address | [address] [facility] [address] | | | [place] [address] | + + + | Home Phone [...] [place] | | | | | [address] | | + + + + + Care Team Providers + +------+ + | Care Buyers' Agent Name | Role | Phone | [...] | Frandy Simons DO | [address] | | | | | of skin | [address] | [place], | | | | | sensation | [address] | [place] | | | | | Arthrodesis | [place] | [address] | | | | | status Left | [address] | Phone: | | | | | leg | Phone: | [phone] | | | | | weakness | [phone] | Fax: | | | | | Procedures | Fax: | [phone] | | | | | MRI Lumbar | [phone] | | | | | | Spine [...] [address] | [address] [place], [place] | | | | | [place], [place] | [address] | | | | | [address] | | | | | | [phone] | | | +--------+ + + + [...] scheduled cindy for her MRI here at [facility] on 08/19. SHAYNE ARAGON elephone Encounte r [...] the round structure with high T1 and [id number] in the right L3 vertebral | | [...] + | MISCELLANEOUS LAB | | | [phone] | + +---------+ + + | MISCELANIOUS LAB | | | [phone] | + +---------+ + + documented in [...]
--- OUTSIDE RECORDS SUMMARY | ~2020-07-03 | XMS | Encounter Summary ---
Demographics + + + | Address | [address] [facility] | | | [place] [address] | + + + | Home Phone [...] [place] | | | | | [address] | | + + + + + Care Team Providers + +------+ + | Care Database Security Expert Name | Role | Phone | [...] + | 12/03/ | Refill | [facility] | Frandy [place], | Medication Refill | | 2014 | | NEUROSURGERY [address] | DO [address] | | | | | [facility] | [address] [place], [place] | | | | | [place], [place] | [id number] | | | | | [address] | | | | | | [phone] | | | +--------+--------+ + + + [...] office and the number we have in Epic is not correct. Art Andersen NP Chart notes faxed to [phone] along with medication list. Sent request to update contac t information in BRAIN To Kathy @ [facility] Support Team documented in this encounter Plan of Treatment Not on filedocumented as of this encounter Visit Diagnoses Not on filedocumented in this encounter"
--- OUTSIDE RECORDS SUMMARY | ~2020-07-03 | XMS | Encounter Summary ---
Demographics + + + | Address | [address] [facility] | | | [place] [address] | + + + | Home Phone [...] [place] | | | | | [address] | | + + + + + Care Team Providers + +------+ + | Care Investor Relations Director Name | Role | Phone | + +------+ + | Natalee Andersen NP | PCP | | + +------+ + Encounter Details +--------+ + + + + | Date | Type | Department | Care Team | Description | +--------+ + + + + | 06/25/ | Hospital | [facility] | Frandy Teresa, | Acquired | | 2014 | Encounter | MED CTR XRAY [address] | DO [address] | spondylolisthesis | | | | [place] | [address] [place], [place] | | | | | [place] [address] | [address] | | | | | [phone] | | | +--------+ + + + [...] + + + +---------+ + + | [place]-3 Fatty | Take 1,000 mg by | [...]
--- OUTSIDE RECORDS SUMMARY | ~2020-07-03 | XMS | Encounter Summary ---
Demographics + + + | Address | [address] [facility] [facility] [address] [facility] | | | [place] [address] | + + + | Home Phone [...] [place], [place] | | | | | [address] | | + + + + + Care Team Providers + +------+ + | Care Food Safety Technician Name | Role | Phone | + +------+ + PCP | Unavailable | + +------+ + Encounter Details +--------+ + + + + | Date | Type | Department | Care Team | Description | +--------+ + + + + | 12/24/ | Hospital | [facility] | | | | 1998 | Encounter | MED CTR XRAY [address] | | | | | | [place] | | | | | | [place] [address] | | | | | | [phone] | | | +--------+ + + + [...]
--- OUTSIDE RECORDS SUMMARY | ~2020-07-03 | XMS | Encounter Summary ---
Demographics + + + | Address | [address] [facility] | | | [place] [address] | + + + | Home Phone [...] + + | Author | [facility] | + + + | Organization | [facility] | + + + | Address | Unknown | + + + | Phone | Unavailable | + + + Support + + + + + | Name | Relationship | Address | Phone | + + + + + | Kelsy Bautista | [address] | [address] | | | | | [place] | | | | | [address] | | + + + + + Care Team Providers + +------+ + | Care Application Systems Administrator Name | Role | Phone [...] [address] | | | | | | [place], [place] | | | | | | [address] | | | | | | [phone] | | | +--------+ + + + [...] as of this encounter Progress Notes Interface, Gill Box Operator In - 12/11/2006 5:03 AM [facility] DATE: 07/03/97 INFECTIOUS DISEASE CLINIC: [...]
--- OUTSIDE RECORDS SUMMARY | ~2020-07-03 | XMS | Encounter Summary ---
Demographics + + + | Address | [address] [facility] | | | [place] [address] | + + + | Home Phone [...] [place] | | | | | [address] | | + + + + + Care Team Providers + +------+ + | Care Career Development Associate Name | Role | Phone | [...] [address] | [address] [place], [place] | (Primary Dx) | | | | [place] | [address] | | | | | [address] | | | | | | [phone] | | | +--------+ + + + [...] + | MISCELLANEOUS LAB | | | [phone] | + +---------+ + + | MISCELANIOUS LAB | | | [phone] | + +---------+ + + documented in this encounter Visit Diagnoses + + | Diagnosis | + + | Status post lumbar spinal fusion - Primary Arthrodesis status | + + documented in this encounter"
--- OUTSIDE RECORDS SUMMARY | ~2020-07-03 | XMS | Encounter Summary ---
Demographics + + + | Address | [address] [facility] | | | [place] [address] | + + + | Home Phone [...] [place] | | | | | [address] | | + + + + + [...] | Abstract | [facility] [place] | [facility], | | | 2012 | | GASTROENTEROLOGY | FORTUNATO Thomas [address] | | | | | [address] | [address] | | | | | [address] [place], [place] | [place], [place] | | | | | [address] | [address] | | | | | [phone] | | | +--------+ + + + [...]
--- OUTSIDE RECORDS SUMMARY | ~2020-07-03 | XMS | Encounter Summary ---
Demographics + + + | Address | [address] [facility] | | | [place] [address] | + + + | Home Phone [...] [place] | | | | | [address] | | + + + + + Care Team Providers + +------+ + | Care Animal Surgeon Name | Role | Phone | + +------+ + | Basim Bolanos MD | PCP | | + +------+ + Encounter Details +--------+ + + + + | Date | Type | Department | Care Team | Description | +--------+ + + + + | 04/18/ | Abstract | [facility] [place] | [facility], | | | 2012 | | GASTROENTEROLOGY | FORTUNATO Thomas [address] | | | | | [address] | [address] | | | | | [address] [place], [place] | [place], [place] | | | | | [address] | [address] | | | | | [phone] | | | +--------+ + + + [...]
--- OUTSIDE RECORDS SUMMARY | ~2020-07-03 | XMS | Encounter Summary ---
Demographics + + + | Address | [address] [facility] | | | [place] [address] | + + + | Home Phone [...] [place] | | | | | [address] | | + + + + + Care Team Providers + +------+ + | Care President And Chief Executive Officer Name | Role [...] [place] | | | | | | [address] | | | | | | [phone] | | | +--------+ + + + [...]
--- OUTSIDE RECORDS SUMMARY | ~2020-07-03 | XMS | Encounter Summary ---
Demographics + + + | Address | [address] [facility] | | | [place] [address] | + + + | Home Phone [...] [place] | | | | | [address] | | + + + + + Care Team Providers + +------+ + | Care Tax Attorney Name | Role | Phone | + [...] + + | 06/28/ | Telephone | [facility] | Ashley Chávez | Talia (Patient | | 2018 | | CARDIOLOGY GENESIS Abad, Business Transformation Manager | called to cancel her | | | | [address] | | appointment) | | | | [place] | | | | | | [address] | | | | | | [phone] | | | +--------+ + + + [...] Miscellaneous Notes Telephone Encounter - Ashley Chávez, Business Transformation Manager - 06/28/2019 2:12 PM Seferino foster said [...]
--- OUTSIDE RECORDS SUMMARY | ~2020-07-03 | XMS | Encounter Summary ---
Demographics + + + | Address | [address] [facility] | | | [place] [address] | + + + | Home Phone [...] [place] | | | | | [address] | | + + + + + Care Team Providers + +------+ + | Care Hammer Smith Name | Role | Phone | + [...] + + | 08/08/ | Telephone | [facility] | Ashley Chávez | Other (Questions | | 2019 | | CARDIOLOGY GENESIS Abad, Language Path | about coverage. ) | | | | [address] | | | | | | [place] | | | | | | [address] | | | | | | [phone] | | | +--------+ + + + [...] Miscellaneous Notes Telephone Encounter - Ashley Chávez, Language Path - 08/08/2019 10:58 AM Seferino kristin called and wanted to know if her monitor needed to be AUTHORIZED. I asked Danelle and she said that because she had medicare part A and B, it does not need kayode or auth. I told this information to the patient, patient stated understanding. BRODY:MANGO. [facility] MURRAYdoc umented in this encounter Plan of Treatment Not on filedocumented as of this encounter Visit Diagnoses Not on filedocumented in this encounter"
--- OUTSIDE RECORDS SUMMARY | ~2020-07-03 | XMS | Encounter Summary ---
Demographics + + + | Address | [address] [facility] | | | [place] [address] | + + + | Home Phone [...] [place] | | | | | [address] | | + + + + + Care Team Providers + +------+ + | Care Telemarketing Fundraiser Name | Role | Phone | + +------+ + | Adriano Patrick MD | PCP | | + +------+ + Encounter Details +--------+ + + + + | Date | Type | Department | Care Team | Description | +--------+ + + + + | 05/11/ | Documentati | [facility] [place] [facility] | Russell Alfaro PA | | | 2016 | on | SLEEP DISORDER [address] | [address] | | | | | [address] [place] | [place], [place] | | | | | [place] [address] | [address] | | | | | [phone] | | | +--------+ + + + [...]
--- OUTSIDE RECORDS SUMMARY | ~2020-07-03 | XMS | Encounter Summary ---
Demographics + + + | Address | [address] [facility] | | | [place] [address] | + + + | Home Phone [...] [place] | | | | | [address] | | + + + + + Care Team Providers + +------+ + | Care Draw Bench Operator Name | Role | Phone | [...] | Services | Therapy | Lumbar | Farndy Simons DO | | | | Required | | spondylosis | [address] | | | | | | S/P lumbar | [address] | | | | | | fusion | [place] | | | | | | | [address] | | | | | | | Phone: | | | | | | | [phone] | | | | | | | Fax: | | | | | | | [phone] | | +--------+ + + + + + Reason for Visit + + + | Reason | Comments | + + + | Follow-up | 4 Week PO | + + + Encounter Details +--------+---------+ + + + | Date | Type | Department | Care Team | Description | +--------+---------+ + + + | 07/25/ | Office | [facility] | Frandy Teresa, | Lumbar spondylosis | | 2013 | Visit | NEUROSURGERY [address] | DO [address] | (Primary Dx); S/P | | | | [address] | [address] [place], [place] | lumbar fusion | | | | [place], [place] | [address] | | | | | [address] | | | | | | [phone] | | | +--------+---------+ + + + [...] m the original. Frandy Teresa DO [address] [facility] [place] [address] FAX: NEUROSURGERY SURGICAL FOLLOW-UP CHIEF COMPLAINT: Chief [...] Take 15 mg by mouth nightl y. [place]-3 Fatty Acids (FISH OIL CONCENTRATE) 1000 MG [...] + | MISCELLANEOUS LAB | | | [phone] | + +---------+ + + | MISCELANIOUS LAB | | | [phone] | + +---------+ + + documented in this encounter Visit Diagnoses + + | Diagnosis | + + | Lumbar spondylosis - Primary Lumbosacral spondylosis without myelopathy | + + | S/P lumbar fusion Arthrodesis status | + + documented in this encounter
--- OUTSIDE RECORDS SUMMARY | ~2020-07-03 | XMS | Encounter Summary ---
Demographics + + + | Address | [address] [facility] | | | [place] [address] | + + + | Home Phone [...] [place] | | | | | [address] | | + + + + + Care Team Providers + +------+ + | Care Technology Trainer Name | Role | Phone | [...] + + | 03/07/ | Telephone | [facility] | Katharine Cardona PA-C | Results | | 2014 | | MEDICINE [place] | [address] [facility] | | | | | [address] | [place] [address] | | | | | [place], [place] | [phone] | | | | | [address] | | | | | | [phone] | | | +--------+ + + + [...] Miscellaneous Notes Telephone Encounter - Adrianne Horton, Marketing Sales Representative - 03/11/2015 3:41 PM PDTCalled Pat and delivered her results. Patient verbalized good understanding. elephone Encounter - Adrianne Horton , Marketing Sales Representative - 03/11/2015 8:40 AM PDTCall placed to [...]
--- OUTSIDE RECORDS SUMMARY | ~2020-07-03 | XMS | Encounter Summary ---
Demographics + + + | Address | [address] [facility] | | | [place] [address] | + + + | Home Phone [...] [place] | | | | | [address] | | + + + + + Care Team Providers + +------+ + | Care Manager Support Name | Role | Phone | [...] + + | 05/08/ | Telephone | [facility] | Dora De La Torre | Testing | | 2020 | | CARDIOLOGY [place] | [address] | | | | | [address] | [address] | | | | | [address] | [place] [address] | | | | | [place] | [phone] | | | | | [address] | | | | | | [phone] | | | +--------+ + + + [...]
--- OUTSIDE RECORDS SUMMARY | ~2020-07-03 | XMS | Encounter Summary ---
Demographics + + + | Address | [address] [facility] | | | [place] [address] | + + + | Home Phone [...] [place] | | | | | [address] | | + + + + + Care Team Providers + +------+ + | Care Mechanical Systems Design Engineer Name | Role | Phone [...] + + | 09/10/ | Documentati | [facility] | Katharine Moncada, | Other (urgent | | 2019 | on | CARDIOLOGY GENESIS | Technologist | report) | | | | [address] | | | | | | [place] | | | | | | [address] | | | | | | [phone] | | | +--------+ + + + [...]
--- OUTSIDE RECORDS SUMMARY | ~2020-07-03 | XMS | Encounter Summary ---
Demographics + + + | Address | [address] [facility] | | | [place] [address] | + + + | Home Phone [...] [place], [place] | | | | | [address] | | + + + + + [...] | 02/02/ | Hospital | [facility] | | | | 1997 - | Encounter | MED CTR GENERIC PSY | | | | | | CONV DEPT [address] | | | | 02/05/ | | [place], | | | | 1997 | | [place] [address] | | | | | | [phone] | | | +--------+ + + + [...]
--- OUTSIDE RECORDS SUMMARY | ~2020-07-03 | XMS | Encounter Summary ---
Demographics + + + | Address | [address] [facility] | | | [place] [address] | + + + | Home Phone [...] [place] | | | | | [address] | | + + + + + Care Team Providers + +------+ + | Care Envelope Sealing Machine Operator Name | Role | Phone [...] + + | 09/19/ | Telephone | [facility] | Ashley Chávez | Other (Patient | | 2018 | | CARDIOLOGY GENESIS Abad, Joint Finisher | calling to be seen | | | | [address] | | mirella. ) | | | | [place], [place] | | | | | | [address] | | | | | | [phone] | | | +--------+ + + + [...] Miscellaneous Notes Telephone Encounter - Ashley Chávez Joint Finisher - 09/19/2019 10:41 AM PSTCall m cierra to patient to advise of Dr. Peterson's notes. Patient stated understanding. Patient asked why she couldn't be seen sooner, and I reminded her that we offered her a monae ner appointment that she turned down. Patient said thank you and hung up. BRODY:NABILAMA. el ephone Encounter - Ashley Chávez Joint Finisher - 09/19/2019 10:40 AM PST Dora De La Torre, CAROLINE Peterson DO; Ashley Chávez Joint Finisher So just an FYI: we offered her appointment today at 3 pm but she turned it down, and said she would keep scheduled appt. el ephone Encounter - Ashley Chávez Joint Finisher - 09/19/2019 10:38 AM PST----- Mess age [...] she needs to be seen by a jig builder. I have asked Lizeth to call her [...] help her pulse? Please advise. Thank you! [facility] umented in this encounter Plan of Treatment Not on filedocumented as of this encounter Visit Diagnoses Not on filedocumented in this encounter"
--- OUTSIDE RECORDS SUMMARY | ~2020-07-03 | XMS | Encounter Summary ---
Demographics + + + | Address | [address] [facility] [address] | | | [place] [address] | + + + | Home Phone [...] [place] | | | | | [address] | | + + + + + Care Team Providers + +------+ + | Care Clearance Cutter Name | Role | Phone | + +------+ + PCP | Unavailable | + +------+ + Encounter Details +--------+ + + + + | Date | Type | Department | Care Team | Description | +--------+ + + + + | 12/27/ | Hospital | [facility] | | | | 1995 | Encounter | MED CTR LABORATORY | | | | | | [address] | | | | | | [place] | | | | | | [address] | | | | | | [phone] | | | +--------+ + + + [...]
--- OUTSIDE RECORDS SUMMARY | ~2020-07-03 | XMS | Encounter Summary ---
Demographics + + + | Address | [address] [facility] | | | [place] [address] | + + + | Home Phone [...] [place] | | | | | [address] | | + + + + + Care Team Providers + +------+ + | Care Grounds/Maintenance Specialist Name | Role | Phone | [...] + | 02/21/ | Refill | [facility] | Deon Gonzales | Medication Refill | | 2012 | | SLEEP DISORDER [address] | MD Laureano [address] | | | | | [address] [place] | [address] [place] | | | | | [place] [address] | [place] [address] | | | | | [phone] | [phone] | | | | | | | [...] - 02/22/2013 9:32 AM [facility] documented in this encount er Plan of Treatment Not on filedocumented as of this encounter Visit Diagnoses + + | Diagnosis | + + | Obstructive sleep apnea (adult) (pediatric) - Primary | + + documented in this encounter"
--- OUTSIDE RECORDS SUMMARY | ~2020-07-03 | XMS | Encounter Summary ---
Demographics + + + | Address | [address] [facility] | | | [place] [address] | + + + | Home Phone [...] [place] | | | | | [address] | | + + + + + Care Team Providers + +------+ + | Care Steel Floor Pan Placing Supervisor Name | Role | Phone | [...] + + | 02/13/ | Office | [facility] | Roxannmiguel ángelDora | History of atrial | | 2020 | Visit | CARDIOLOGY [place] | [address] | fibrillation | | | | [address] | [place] [address] | (Primary Dx); New | | | | [address] | [place] [address] | onset left bundle | | | | [place], [place] | [phone] | branch block (LBBB); | | | | [address] | | Benign essential | | | | [phone] | | HTN; History of | | [...] | | | | | | obesity) ([facility]) | +--------+---------+ + + + Social History [...] 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 Her FYB1GA8 VASC score is 4 (stroke, HTN, gender) [...] She has previously seen Dr. Garland in [place], and different sleep provider in [facility] when lived over there. She previously [...] go back to volunteering at the local [employer], though this plan will need to be [...] thirst or hunger. Psychiatric/Behavioral: Bipolar/Schizophrenia. Tx'd by [place] [employer] Vaccines: Current on flu vaccine: 2019 Current on pneumonia vaccine:PPSV 23 05/29/2013 Habits/Social : Denies history of smoking. Denies EtOH use. Denies recreational or illici t drug use. Exercises sporadically. Lives in [place] . Outpatient Medications Prior to Visit Medication [...] by mouth nightly. Blood Glucose Monitoring Suppl ([employer] VERIO FLEX SYSTEM) w/Device KIT by Does [...] nonspecific ST-T wave abnormality rate 82 bpm, MS 176 ms, QRS 80 ms, QTC 446 ms tracing personally reviewed by me EK12/17/2019: Sinus tachycardia, nonspecific ST wave abnormalities, rate 105 bpm, MS 196 ms, QRS 74 ms, QTC 430 ms, tracing personally reviewed by me, and compared to EKG performed in February 2019, rate is less well-controlled EK01/10/2020 (metoprolol XL 50 mg twice daily. Normal sinus rhythm, new left bundle bran ch block Rate 74 bpm, MS 204 ms, QRS 138 ms, QTC 488 [...] bundle branch block. Ra te 105 bpm, MS 184 ms, QRS 144 ms, QTC 489 ms, tracing personally reviewed by me, and compar ed to EKG performed in December , rate is less well-controlled LABS Labs: 12/26/2018: ( [facility])CMP: Sodium 139, potassium 4.2, chloride 99, BUN 10, creatinine 0. 7, BNP 28. CBC: WBC 7.8, hemoglobin 14.3, hematocrit 42.7, platelets 214 Labs: 09/28/2019:( [facility]) CBC: WBC 7.8, hemoglobin 14.9, hematocrit 43.8, platelets 221. C MP: Sodium 132, potassium 4.2, chloride 95, AST 76, ALT 76, alk phos 134 Labs: 10/11/2019:( [facility]) CBC: WBC 6.7, RBC 4.97, hemoglobin 15.2, hematocrit 44.7, platel ets 200. CMP: Glucose 385, BUN 7, creatinine 0.62, GFR 97, sodium 131, potassium 4.1, chlor kelby 95, albumin 4.3, total bilirubin 0.6, AST 75, ALT 73, alk phos 144. Thyroid: TSH 4.27 Labs: 10/12/2020:( [facility]) CBC: WBC 7, RBC 4.93, hemoglobin 14.7, hematocrit 44.1, platele ts 186 normal UA CMP: Glucose 381, BUN 6, creatinine 0.63, GFR 95, sodium 133, potassium 3.8 , chloride 97, albumin 4.3, total bili 0.6, AST 62, ALT 75, alk phos 145 thyroid: TSH 3.07 Labs: 10/20/2019:( [facility]) CBC: WBC 7.1, RBC 4.93, [...] reviewed her EKG and Echo with her tire service supervisor Dr. Peterson, who was in clin ic [...] Obesity, Class III, BMI 40-49.9 (morbid obesity) ([facility]) Orders Placed This Encounter Procedures ECG 12 [...] continuity of care purp ose Preston [facility] Cardiology 02/15/2020 docume nted in this [...] | | | | | DORA VELAZQUEZ ([id number]) on | | | | | | [...]
--- OUTSIDE RECORDS SUMMARY | ~2020-07-03 | XMS | Encounter Summary ---
Demographics + + + | Address | [address] [facility] | | | [place] [address] | + + + | Home Phone [...] [place] | | | | | [address] | | + + + + + Care Team Providers + +------+ + | Care Jewelry Bench Worker Name | Role | Phone | [...] | | | spondylolist | | [address] | | | | | hesis | | [place], | | | | | Spinal | | [place] [address] | | | | | stenosis, | | Phone: | | | | | lumbar | | [phone] | | | | | region, | | Fax: | | | | | without | | [phone] | | | | | neurogenic | [...] | | | | | | | CT ARTHDSIS | | | | | | [...] | | | | | | ION CT | | | | | | | [...] | | | | | | SEG CT | | | | | | | [...] [facility] | Frandy Teresa, | Spinal stenosis, | | 2013 | Encounter | MED CTR XRAY [address] | DO [address] | lumbar region, | | | | [place] | [address] [place] | without neurogenic | | | | [place] [address] | [id number] | claudication | | | | [phone] | | (Primary Dx) | +--------+ + [...] + + + +---------+ + + | [place]-3 Fatty | Take 1,000 mg by | [...]
--- OUTSIDE RECORDS SUMMARY | ~2020-07-03 | XMS | Encounter Summary ---
Demographics + + + | Address | [address] [facility] [address] | | | [place] [address] | + + + | Home Phone [...] [place] | | | | | [address] | | + + + + + Care Team Providers + +------+ + | Care Circus Roustabout Name | Role | Phone | + [...] + | 07/01/ | Telephone | [facility] | Frandy Teresa, | Other (Surgery ) | | 2013 | | NEUROSURGERY [address] | DO [address] | | | | | [address] | [address] [place], [place] | | | | | [place], [place] | [id number] | | | | | [address] | | | | | | [phone] | | | +--------+ + + + [...] Aragon Cert MA - 07/01/2014 2:27 PM PDTI called Cindy and let her know that [...]
--- OUTSIDE RECORDS SUMMARY | ~2020-07-03 | XMS | Encounter Summary ---
Demographics + + + | Address | [address] [facility] | | | [place] [address] | + + + | Home Phone [...] [place] | | | | | [address] | | + + + + + Care Team Providers + +------+ + | Care Highway Painter Name | Role | Phone | + +------+ + | Basim Bolanos MD | PCP | | + +------+ + Encounter Details +--------+ + + + + | Date | Type | Department | Care Team | Description | +--------+ + + + + | 03/30/ | Hospital | [facility] | Tyrese Neely MD | | | 2012 | Encounter | MED CTR MP INTRA OP | [address], [place] | | | | | [address] | [address] [place], [place] | | | | | [place], [place] | [address] | | | | | [address] | | | | | | [phone] | | | +--------+ + + + [...] + + + +---------+ + + | [place]-3 Fatty | Take 1,000 mg by | [...] Neely MD - 03/30/2013 12:10 [place] [address] Patient Name: CINDY ARNDT Provider: Tyrese Neely MD Unit #: [id number] Location: [facility] : 1955 Patient Name: Cindy Arndt Gender: F Procedure Date: 03/30/2013 12:10 PM Date of : 1955 Age: 57 Admit Type: Outpatient Room: Endo Room 1 Note Status: Finalized Attending MD: Tyrese Neely MD Procedure: Upper GI endoscopy Indications: Epigastric abdominal pain Providers: Tyrese Neely MD, Vanesa Anne RN, Yesenia Downing, Reverse Unit Operator, Guillermo Ortiz MD (Anesthesia Staff) Referring MD: [...] physician, the nurse, the anesthesiologist and the color laboratory technician. The procedure was verified in the [...] + | [facility] | [address] | [place] | [phone] | | [facility] | | [address] | | | - LABORATORY | | | | + + + + + | [facility] | [address] | [place] | | | [facility] | | [id number] [place] [address] | | | - LABORATORY | | [...] ST. | [address] | [place] | [phone] | | [facility] | | [address] | | | - LABORATORY | | | | + + + + + | [facility] | [address] | [place] | | | [facility] | | [address] [place] [address] | | | - LABORATORY | | | | + + + + + documented in this encounter Visit Diagnoses Not on filedocumented in this encounter"
--- OUTSIDE RECORDS SUMMARY | ~2020-07-03 | XMS | Encounter Summary ---
Demographics + + + | Address | [address] [facility] | | | [place] [address] | + + + | Home Phone [...] [place] | | | | | [address] | | + + + + + Care Team Providers + +------+ + | Care Operator Prefinish Name | Role | Phone | + +------+ + PCP | Unavailable | + +------+ + Encounter Details +--------+ + + + + | Date | Type | Department | Care Team | Description | +--------+ + + + + | 02/16/ | Hospital | [facility] | | | | 1994 | Encounter | MED CTR LABORATORY | | | | | | [address] | | | | | | [place] | | | | | | [address] | | | | | | [phone] | | | +--------+ + + + [...]
--- OUTSIDE RECORDS SUMMARY | ~2020-07-03 | XMS | Encounter Summary ---
Demographics + + + | Address | [address] [facility] | | | [place] [address] | + + + | Home Phone [...] [place] | | | | | [address] | | + + + + + Care Team Providers + +------+ + | Care Apprentice Painter Neckties Name | Role | Phone | + [...] | 08/05/ | Telephone | [facility] [place] | Frandy Teresa, | Other | | 2013 | | NEUROSURGERY [address] | DO [address] | | | | | [address] | [address] [place], [place] | | | | | [place], [place] | [id number] | | | | | [address] | | | | | | [phone] | | | +--------+ + + + [...]
--- OUTSIDE RECORDS SUMMARY | ~2020-07-03 | XMS | Encounter Summary ---
Demographics + + + | Address | [address] [facility] | | | [place] [address] | + + + | Home Phone [...] [place] | | | | | [address] | | + + + + + [...] | | | | | | [place], | | | | | | [place] [address] | | | | | | [phone] | | | +--------+ + + + [...] | | + +---------+ + + | [facility] DEPARTMENT OF | | | | | RADIOLOGY | | | | + +---------+ + + documented in this encounter Visit Diagnoses Not on filedocumented in this encounter"
--- OUTSIDE RECORDS SUMMARY | ~2020-07-03 | XMS | Encounter Summary ---
Demographics + + + | Address | [address] [facility] | | | [place] [address] | + + + | Home Phone [...] [place] | | | | | [address] | | + + + + + Care Team Providers + +------+ + | Care Cotton Program Technician Name | Role | Phone | [...] + + | 08/15/ | Documentati | [facility] | Katharine Moncada, | Other (urgent | | 2019 | on | CARDIOLOGY [place] | Technologist | report) | | | | [address] | | | | | | [place] | | | | | | [address] | | | | | | [phone] | | | +--------+ + + + [...]
--- OUTSIDE RECORDS SUMMARY | ~2020-07-03 | XMS | Encounter Summary ---
Demographics + + + | Address | [address] [facility] | | | [place] [address] | + + + | Home Phone [...] [place] | | | | | [address] | | + + + + + Care Team Providers + +------+ + | Care Technical Writer Name | Role | Phone | [...] | | | | | | | [place] | | | | | | | [address] | | | | | | | Phone: | | | | | | | [phone] | | | | | | | Fax: | | | | | | | [phone] | | +--------+--------+ + + + + Encounter Details +--------+---------+ + + + | Date | Type | Department | Care Team | Description | +--------+---------+ + + + | 02/27/ | Office | [facility] | Baudilio Newman | Neuropathy (Primary | | 2015 | Visit | NEUROLOGY LAURIE | MD Pollo Need updated | Dx); Sleep apnea; | | | | [address] [facility], | address | Stroke (HCC); | | | | [address] [place] | | Thyroid disease | | | | [place] [address] | | | | | | [phone] | | | +--------+---------+ + + + [...] supply of blood, brain tissue quickly dies. [id number] [employer]. [address] [place] [address]. All righ ts reserved. This information is not intended as a substitute for professional medical care. Always follow your healthcare professional's instructions. documented in this encounter Progress Notes Baudilio Newman MD - 02/27/2015 10:31 AM PDTFormatting of this note might be differen t from the original. Baudilio Newman MD [address] [place] [address], [address] [place] [address] Neurology Outpatient New Patient Note Referring Provider: [...] history. Notes from her recent hospitalization at [facility] were reviewed in detail. Ms. Arndt started feeling off in the evening of 02/01. She felt dizzy and laid down to slee p. Upon waking, she felt her right side was numb. She tried to get up to go to the bathroom and realized she was weak as well on the right. She was taken to [facility] where she was diagnosed with a [...] systol ically. She was reevaluated in the [facility] ED for one such event [...] hospitalization . This specimen was characterized at [facility], but the report is not currently available for [facility]. Unfortunately, Ms. Arndt notes that her [...] tablet Take 15 mg by mouth nightly. [place]-3 Fatty Acids (FISH OIL CONCENTRATE) 1000 MG [...] BMI 46.04 kg /m2 Neck Circumference: 14" [place] Sleepiness Scale: 2 General: well developed and [...] Romberg test negative Radiographic Review: CTA from [facility] reviewed on [facility]. No significant stenoses seen [...] No results found for this basename: hba1c, szh1mzd, ldl, ldldirect, ldlext, dldlex Lab Results Component [...] in th is encounter Plan of Treatment Not on filedocumented [...]
--- OUTSIDE RECORDS SUMMARY | ~2020-07-03 | XMS | Encounter Summary ---
Demographics + + + | Address | [address] [facility] | | | [place] [address] | + + + | Home Phone [...] [place], [place] | | | | | [address] | | + + + + + Care Team Providers + +------+ + | Care Waste Disposal Leakage Tester Name | Role | Phone | + +------+ + PCP | Unavailable | + +------+ + Encounter Details +--------+ + + + + | Date | Type | Department | Care Team | Description | +--------+ + + + + | 02/24/ | Hospital | [facility] | | | | 1997 - | Encounter | MED CTR GENERIC PSY | | | | | | CONV DEPT [address] | | | | 02/26/ | | [address], | | | | 1997 | | [place] [address] | | | | | | [phone] | | | +--------+ + + + [...]
--- OUTSIDE RECORDS SUMMARY | ~2020-07-03 | XMS | Encounter Summary ---
Demographics + + + | Address | [address] [facility] [address] [facility] | | | [place] [address] | + + + | Home Phone [...] [place] | | | | | [address] | | + + + + + Care Team Providers + +------+ + | Care Head Trimmer Name | Role | Phone | [...] Closed | | Radiology | Diagnoses | [place], | | | | | | Thoracic or | Natalee L, | | | | | | lumbosacral | [address] | | | | | | neuritis or | [address] | | | | | | | [address] | | | | | | radiculitis, | [place], | | | | | | unspecified | [place] [address] | | | | | | | Phone: | | | | | | Degeneration | [phone] | | | | | | of lumbar | Fax: | | | | | | or | [phone] | | | | | | lumbosacral [...] + + | 03/11/ | Hospital | [facility] | Natalee Andersen | Thoracic or | | 2013 | Encounter | MED CTR MRI [address] | L, [address] | lumbosacral neuritis | | | | [place], | [address] | or radiculitis, | | | | [place] [address] | [place] [address] | unspecified; | | | | [phone] | [phone] | Degeneration of | | | | [...] + + + +---------+ + + | [place]-3 Fatty | Take 1,000 mg by | [...] [facility] - 03/20/2014 12:00 AM PDT documented [...] + | MISCELLANEOUS LAB | | | [phone] | + +---------+ + + | MISCELANIOUS LAB | | | [phone] | + +---------+ + + documented in this encounter Visit Diagnoses + + | Diagnosis | + + | Thoracic or lumbosacral neuritis or radiculitis, unspecified | + + | Degeneration of lumbar or lumbosacral intervertebral disc | + + documented in this encounter"
--- OUTSIDE RECORDS SUMMARY | ~2020-07-03 | XMS | Encounter Summary ---
Demographics + + + | Address | [address] [facility] | | | [place] [address] | + + + | Home Phone [...] [place] | | | | | [address] | | + + + + + Care Team Providers + +------+ + | Care Staying Machine Operator Name | Role | Phone [...] + + | 08/16/ | Telephone | [facility] | Ashley Chávez | Other (Called to | | 2018 | | CARDIOLOGY [place] | Pollo, High Tension Tester | tell patient what | | | | [address] | | Nicholas said. ) | | | | [place] [address] | | | | | | [place] | | | | | | [address] | | | | | | [phone] | | | +--------+ + + + [...] Miscellaneous Notes Telephone Encounter - Ashley Chávez, High Tension Tester - 08/16/2019 2:57 PM PDTCall m cierra to patient to advise of Dr. Peterson's notes. Patient stated understanding. BRODY:IRINA-AAMA el ephone Encounter - Ashley Chávez High Tension Tester - 08/16/2019 2:56 PM PDT----- Mess age [...] Thanks. ----- Message ----- From: Lesa Ochoa High Tension Tester Sent: 08/13/2019 13:31 To: Desiree Peterson DO [...]
--- OUTSIDE RECORDS SUMMARY | ~2020-07-03 | XMS | Encounter Summary ---
Demographics + + + | Address | [address] [facility] [facility] [address] [facility] | | | [place] [address] | + + + | Home Phone [...] [place] | | | | | [address] | | + + + + + Care Team Providers + +------+ + | Care Colon And Rectal Surgeon Name | Role | Phone | + +------+ + PCP | Unavailable | + +------+ + Encounter Details +--------+ + + + + | Date | Type | Department | Care Team | Description | +--------+ + + + + | 04/16/ | Hospital | [facility] | Deon Gonzales | | | 2005 | Encounter | MED CTR SLEEP | MD La[address] | | | | | [place] [address] | [address] [place] | | | | | [place], [place] | [place] [address] | | | | | [address] | [phone] | | | | | [phone] | | | +--------+ + + + [...]
--- OUTSIDE RECORDS SUMMARY | ~2020-07-03 | XMS | Encounter Summary ---
Demographics + + + | Address | [address] [facility] | | | [place] [address] | + + + | Home Phone [...] [place] | | | | | [address] | | + + + + + Care Team Providers + +------+ + | Care Yarn Salvager Name | Role | Phone | + [...] [place] | | | | | | [address] | | | | | | [phone] | | | +--------+ + + + [...]
--- OUTSIDE RECORDS SUMMARY | ~2020-07-03 | XMS | Encounter Summary ---
Demographics + + + | Address | [address] [facility] | | | [place] [address] | + + + | Home Phone [...] [place] | | | | | [address] | | + + + + + Care Team Providers + +------+ + | Care Mix House Tender Name | Role | Phone | [...] | 06/26/ | Telephone | [facility] [place] | Frandy Teresa, | Other | | 2013 | | NEUROSURGERY [address] | DO [address] | | | | | [address] | [address] [place], [place] | | | | | [place], [place] | [id number] | | | | | [address] | | | | | | [phone] | | | +--------+ + + + [...]
--- OUTSIDE RECORDS SUMMARY | ~2020-07-03 | XMS | Encounter Summary ---
Demographics + + + | Address | [address] [facility] | | | [place] [address] | + + + | Home Phone [...] [place], [place] | | | | | [address] | | + + + + + Care Team Providers + +------+ + | Care Hotel Or Motel Receptionist Name | Role | Phone | + +------+ + PCP | Unavailable | + +------+ + Encounter Details +--------+ + + + + | Date | Type | Department | Care Team | Description | +--------+ + + + + | 12/22/ | Hospital | [facility] | | | | 1993 - | Encounter | MED CTR GENERIC PSY | | | | | | CONV DEPT [address] | | | | 12/25/ | | [place], | | | | 1993 | | [place] [address] | | | | | | [phone] | | | +--------+ + + + [...]
--- OUTSIDE RECORDS SUMMARY | ~2020-07-03 | XMS | Encounter Summary ---
Demographics + + + | Address | [address] [facility] [address] | | | [place] [address] | + + + | Home Phone [...] [place] | | | | | [address] | | + + + + + Care Team Providers + +------+ + | Care Jtac Name | Role | Phone | + [...] + + | 12/17/ | Office | [facility] | Dora De La Torre | History of atrial | | 2020 | Visit | CARDIOLOGY [place] | [address] | fibrillation; Benign | | | | [address] | [address] | essential HTN; | | | | [address] | [place] [address] | History of | | | | [place], [place] | [phone] | hypothyroidism; | | | | [address] | | Stress | | | | [phone] | | hyperglycemia; | | | | | | History of sleep | | | | | | apnea; History of | | | | | | stroke; Obesity, | | | | | | Class III, BMI | | | | | | 40-49.9 (morbid | | | | | | obesity) ([facility]); Mild | | | | | | [...] of fatigue and shortness of breath. Her [id number] VASC score is 4 (stroke, HTN, gender) , and Dr. Peterson did not anticoagulate he r due to low incidence of atrial fib. Her current and previous testing and procedures are detailed below. She was seen in the emergency room on October 11, 2019 at [facility] and presented wi th paranoia feeling that knives were chasing her , so went to the emergency room so that she could feel safe and Had [facility] evaluation and discharged home Labs performed at [...] 405 and [facility], and she was to be started on Abilify. She was seen again in the emergency room on October 19 and , [id number] for sim ilar complaints with increased delusions, [...] She has previously seen Dr. Garland in [place], and different provider in [place] when lived over there. She reports she [...] thirst or hunger. Psychiatric/Behavioral: Bipolar/Schizophrenia. Tx'd by [employer] Vaccines: Current on flu vaccine: 2019 Current on pneumonia vaccine:PPSV 23 05/29/2013 Habits/Social : Denies history of smoking. Denies EtOH use. Denies recreational or illici t drug use. Exercises sporadically. Lives in [place] . Outpatient Medications Prior to Visit Medication [...] Take by mouth. Blood Glucose Monitoring Suppl (Zoom VERIO FLEX SYSTEM) w/Device KIT by Does not ap ply route. budesonide-formoterol (SYMBICORT) 160-4.5 mcg/puff inhaler Inhale 2 puffs into the lung s 2 (two) times daily. calcium carbonate antacid (TUMS ULTRA 1000) 1000 MG CHEW Chew and swallow 1,000 mg 4 ti mes daily as needed. Cholecalciferol (VITAMIN D-3) 91742 units CAPS Take 50,000 Units by mouth [...] is less well-controlled LABS Labs: 12/26/2018: ( [facility])CMP: Sodium 139, potassium 4.2, chloride 99, BUN 10, creatinine 0. 7, BNP 28. CBC: WBC 7.8, hemoglobin 14.3, hematocrit 42.7, platelets 214 Labs: 09/28/2019:( [facility]) CBC: WBC 7.8, hemoglobin 14.9, hematocrit 43.8, platelets 221. C MP: Sodium 132, potassium 4.2, chloride 95, AST 76, ALT 76, alk phos 134 Labs: 10/11/2019:( [facility]) CBC: WBC 6.7, RBC 4.97, hemoglobin 15.2, hematocrit 44.7, platel ets 200. CMP: Glucose 385, BUN 7, creatinine 0.62, GFR 97, sodium 131, potassium 4.1, chlor kelby 95, albumin 4.3, total bilirubin 0.6, AST 75, ALT 73, alk phos 144. Thyroid: TSH 4.27 Labs: 10/12/2020:( [facility]) CBC: WBC 7, RBC 4.93, hemoglobin 14.7, hematocrit 44.1, platele ts 186 normal UA CMP: Glucose 381, BUN 6, creatinine 0.63, GFR 95, sodium 133, potassium 3.8 , chloride 97, albumin 4.3, total bili 0.6, AST 62, ALT 75, alk phos 145 thyroid: TSH 3.07 Labs: 10/20/2019:( [facility]) CBC: [...] a prescription to her local pharmacy [facility]'s . I made no other [...] III, BMI 40-49.9 (morbid obesity) ([facility]) 8. Mild hyperlipidemia Orders Placed This Encounter [...] for continuity of care purp osHannah BUCIO [facility] 12/17/2019 docume nted in this encounter [...] | | | | | | Yesenia ([id number]) on | | | | | | [...]
--- OUTSIDE RECORDS SUMMARY | ~2020-07-03 | XMS | Encounter Summary ---
Demographics + + + | Address | [address] [facility] | | | [place] [address] | + + + | Home Phone [...] [place] | | | | | [address] | | + + + + + Care Team Providers + +------+ + | Care Cutting Machine Operator Name | Role | [...] [address] | [address] [place], [place] | | | | | [place], [place] | [address] | | | | | [address] | | | | | | [phone] | | | +--------+ + + + [...] + | MISCELLANEOUS LAB | | | [phone] | + +---------+ + + | MISCELANIOUS LAB | | | [phone] | + +---------+ + + documented in this encounter Visit Diagnoses + + | Diagnosis | + + | Back pain - Primary Backache, unspecified | + + documented in this encounter"
--- OUTSIDE RECORDS SUMMARY | ~2020-07-03 | XMS | Encounter Summary ---
Demographics + + + | Address | [address] [facility] | | | [place] [address] | + + + | Home Phone [...] [place] | | | | | [address] | | + + + + + Care Team Providers + +------+ + | Care Hotel Clerk Name | Role | Phone | + +------+ + PCP | Unavailable | + +------+ + Encounter Details +--------+ + + + + | Date | Type | Department | Care Team | Description | +--------+ + + + + | 02/24/ | Hospital | [facility] | | | | 1997 | Encounter | MED CTR EMERGENCY | | | | | | CENTER [address] | | | | | | [place] | | | | | | [address] | | | | | | [phone] | | | +--------+ + + + [...]
--- OUTSIDE RECORDS SUMMARY | ~2020-07-03 | XMS | Encounter Summary ---
Demographics + + + | Address | [address] [facility] [address] [address] [facility] | | | [place] [address] | + + + | Home Phone [...] [place] | | | | | [address] | | + + + + + Care Team Providers + +------+ + | Care Precinct Commanding Officer Name | Role | Phone [...] + + | 08/09/ | Documentati | [facility] | Katharine Moncada, | Other (end of study) | | 2019 | on | CARDIOLOGY NUNDA | Technologist | | | | | [address] | | | | | | [place], [place] | | | | | | [address] | | | | | | [phone] | | | +--------+ + + + [...] Technologist - 08/09/2019 11:59 PM PDT Cardiac Transfer Specialist Date of Event Monitor: 08/09/19 Referring Physician: [...]
--- OUTSIDE RECORDS SUMMARY | ~2020-07-03 | XMS | Encounter Summary ---
Demographics + + + | Address | [address] [facility] | | | [place] [address] | + + + | Home Phone [...] [place] | | | | | [address] | | + + + + + Care Team Providers + +------+ + | Care Sales Representative Wire Rope Name | Role | Phone | + +------+ + | Natalee Andersen NP | PCP | | + +------+ + Encounter Details +--------+ + + + + | Date | Type | Department | Care Team | Description | +--------+ + + + + | 06/25/ | Hospital | [facility] | Latricia Feliciano | | | 2014 | Encounter | MED CTR ACUTE | D, PT [address] | | | | | PHYSICAL THERAPY | NEFTALIE [place] | | | | | [address] | [address] | | | | | [place] [address] | | | | | | [phone] | | | +--------+ + + + [...] + + + +---------+ + + | [place]-3 Fatty | Take 1,000 mg by | [...]
--- OUTSIDE RECORDS SUMMARY | ~2020-07-03 | XMS | Encounter Summary ---
Demographics + + + | Address | [address] [facility] | | | [place] [address] | + + + | Home Phone [...] [place] | | | | | [address] | | + + + + + Care Team Providers + +------+ + | Care Pet Care Associate Name | Role | Phone [...] | 07/30/ | Telephone | [facility] | Ashley Chávez | Other (Patient | | 2019 | | CARDIOLOGY GENESIS Abad, Screen Printer | concerns ) | | | | [address] | | | | | | [place] | | | | | | [address] | | | | | | [phone] | | | +--------+ + + + [...] Miscellaneous Notes Telephone Encounter - Ashley Chávez Screen Printer - 07/30/2019 1:40 PM PDTCalfabio norton to patient to advise of Dr. Peterson's notes. Patient stated understanding. BRODY:IRINA-SANJANA. el ephone Encounter - Ashley Chávez, Screen Printer - 07/30/2019 1:40 PM PDT----- Mess age [...] Thanks ----- Message ----- From: Ashley Chávez Screen Printer Sent: 07/30/2019 11:47 To: Desiree Peterson DO [...]
--- OUTSIDE RECORDS SUMMARY | ~2020-07-03 | XMS | Encounter Summary ---
Demographics + + + | Address | [address] [facility] | | | [place] [address] | + + + | Home Phone [...] [place] | | | | | [address] | | + + + + + Care Team Providers + +------+ + | Care Ict Support Engineer Name | Role | Phone | + +------+ + | Natalee Andersen NP | PCP | | + +------+ + Encounter Details +--------+---------+ + + + | Date | Type | Department | Care Team | Description | +--------+---------+ + + + | 06/25/ | Surgery | [facility] | Frandy Teresa, | Canceled | | 2013 | | MED CTR OR INTRA OP | DO [address] | PROCEDURE NOT | | | | [address] | [address] [place], [place] | PERFORMED | | | | [place], [place] | [address] | | | | | [address] | | | | | | [phone] | | | +--------+---------+ + + + [...] + + +---------+ + + | [place]-3 Fatty | Take 1,000 mg by [...] this en counter H&P Notes ONBRUCE ABREU [facility] - 06/21/2014 12:00 AM PDT 14 1:21 PM PDTdocumented in this encounter Procedure Notes Terence Madison MD - 06/26/2014 8:04 AM PDTAssociated Order(s): ECG 12 LEADProcedure(s): E CG 12 LEAD Adult ECG Report Name: Cindy Arndt Age: 58 y.o. Gender: female 06/25/14 at 13:35 Narrative Interpretation: Sinus rhythm. Consider LVH. Normal axis. Normal intervals. E lectronically signed by Treence Madison MD at 06/26/2014 8:05 AM PDTONBRUCE ABREU [facility] - 06/26 12:00 AM PDT NBRUCE ZAMORA N [facility] - 06/26/2014 12:00 AM PDT NBASE SCAN [facility] - 06/12/2014 12:00 AM PDTElectronically signed by Mariah Schulte at 06/12 7:30 AM PDTONBASE SCAN [facility] - 06/11/2014 12:00 AM PDT documented in this encounter Miscellaneous Notes Miscellaneous - ONBASE SCAN [facility] - 06/26/2014 12:00 AM PDT lan [...] stenosis, lumbar region, without neurogenic claudication ). Errand Runner visit is in response to an electronic spiritual care consult request. Patient wa s resting comfortably in bed; she was attended by her mom and dad - both sate nearby and see med very attentive and supportive. Cindy is Judaism, attends [employer], and is strong in her rangel. She is excited about taking care of her back problem and fe els very secure in Dr. Teresa's care. She welcomed prayer, and expressed appreciation for th visit. Follow up with regular visits, emotional and spiritual support. iscellaneo us - ONBASE SCAN [facility] - 06/25/2014 12:00 AM PDTElectronically signed [...] | | | | | | [facility] | | | | | | MEDICAL [...] | non- | FILTRATION | mL/min/1.73m2 | [facility] | | | [place] | RATE,ESTIMATED | | MEDICAL | | | | mL/min/1.08z2Raew than | | CENTER - | | [...] | | | | | mg/dL | [facility] | | | | | | MEDICAL | | | | | | CENTER - | | | | | | LABORATORY | | + + + + + + | BUN/Creatin | 20.0 | | [facility] | | | ine Ratio | | | [facility] | | | | | | [...] | [facility] | [address] | [place] | [phone] | | [facility] | | [address] | | | - LABORATORY | | | | + + + + + | [facility] | [address] | [place] | | | [facility] | | [address], [facility] | | | - [...] | [facility] | [address] | [place], [place] | [phone] | | [facility] | | [address] | | | - LABORATORY | | | | + + + + + | [facility] | [address] | [place], [place] | | | [facility] | | [id number] | | [...] | [facility] | [address] | [place] | [phone] | | [facility] | | [address] | | | - LABORATORY | | | | + + + + + | [facility] | [address] | [place] | | | [facility] | | [id number] | | [...] [address] | [place] | | | [facility] | | [address] | | | - BLOOD BANK | [...] | [facility] | [address] | [place] | [phone] | | [facility] | | [address] | | | - LABORATORY | | | | + + + + + | [facility] | [address] | [place], [place] | | | [facility] | | [address] | | [...]
--- OUTSIDE RECORDS SUMMARY | ~2020-07-03 | XMS | Encounter Summary ---
Demographics + + + | Address | [address] [facility] | | | [place] [address] | + + + | Home Phone [...] [place] | | | | | [address] | | + + + + + Care Team Providers + +------+ + | Care Supervisor Grove Name | Role | Phone | + +------+ + PCP | Unavailable | + +------+ + Encounter Details +--------+ + + + + | Date | Type | Department | Care Team | Description | +--------+ + + + + | 03/11/ | Hospital | [facility] | Deon Gonzales | | | 2005 | Encounter | MED CTR SLEEP | MD [address] | | | | | [place] [address] | [address] [place] | | | | | [place], [place] | [place] [address] | | | | | [address] | [phone] | | | | | [phone] | | | +--------+ + + + [...]
--- OUTSIDE RECORDS SUMMARY | ~2020-07-03 | XMS | Encounter Summary ---
Demographics + + + | Address | [address] [facility] | | | [place] [address] | + + + | Home Phone [...] [place], [place] | | | | | [address] | | + + + + + Care Team Providers + +------+ + | Care Agricultural Technician Name | Role | Phone | + +------+ + PCP | Unavailable | + +------+ + Encounter Details +--------+ + + + + | Date | Type | Department | Care Team | Description | +--------+ + + + + | 03/26/ | Hospital | [facility] | | | | 2001 | Encounter | MED CTR LABORATORY | | | | | | [address] | | | | | | [place] | | | | | | [address] | | | | | | [phone] | | | +--------+ + + + [...]
--- OUTSIDE RECORDS SUMMARY | ~2020-07-03 | XMS | Encounter Summary ---
Demographics + + + | Address | [address] [facility] | | | [place] [address] | + + + | Home Phone [...] [place] | | | | | [address] | | + + + + + Care Team Providers + +------+ + | Care Box Brander Name | Role | Phone | + [...] + + | 08/20/ | Documentati | [facility] | Katharine Moncdaa, | Other (urgent | | 2019 | on | CARDIOLOGY GENESIS | Technologist | report) | | | | [address] | | | | | | [place] | | | | | | [address] | | | | | | [phone] | | | +--------+ + + + [...]
--- OUTSIDE RECORDS SUMMARY | ~2020-07-03 | XMS | Encounter Summary ---
Demographics + + + | Address | [address] [facility] | | | [place] [address] | + + + | Home Phone [...] [place] | | | | | [address] | | + + + + + Care Team Providers + +------+ + | Care Dope Firer Name | Role | Phone | [...] + + | 08/20/ | Documentati | [facility] | Katharine Moncada, | Other (urgent | | 2019 | on | CARDIOLOGY GENESIS | Technologist | report) | | | | [address] | | | | | | [place] | | | | | | [address] | | | | | | [phone] | | | +--------+ + + + [...]
--- OUTSIDE RECORDS SUMMARY | ~2020-07-03 | XMS | Encounter Summary ---
Demographics + + + | Address | [address] [facility] | | | [place] [address] | + + + | Home Phone [...] [place] | | | | | [address] | | + + + + + Care Team Providers + +------+ + | Care Farm Equipment Mechanic Name | Role | Phone | + +------+ + PCP | Unavailable | + +------+ + Encounter Details +--------+ + + + + | Date | Type | Department | Care Team | Description | +--------+ + + + + | 02/02/ | Hospital | [facility] | | | | 1997 | Encounter | MED CTR EMERGENCY | | | | | | CENTER [address] | | | | | | [place] | | | | | | [address] | | | | | | [phone] | | | +--------+ + + + [...]
--- OUTSIDE RECORDS SUMMARY | ~2020-07-03 | XMS | Encounter Summary ---
Demographics + + + | Address | [address] [facility] | | | [place] [address] | + + + | Home Phone [...] [place] | | | | | [address] | | + + + + + [...] | | | [address] [place] | [place] [address] | | | | | [place] [address] | | | | | | [phone] | | | +--------+ + + + [...]
--- OUTSIDE RECORDS SUMMARY | ~2020-07-03 | XMS | Encounter Summary ---
Demographics + + + | Address | [address] [facility] | | | [place] [address] | + + + | Home Phone [...] [place] | | | | | [address] | | + + + + + Care Team Providers + +------+ + | Care Rail Manager Name | Role | Phone | [...] | 09/26/ | Refill | [facility] [place] | Frandy Teresa, | Medication Refill | | 2013 | | NEUROSURGERY [address] | DO [address] | | | | | [facility] | [address] [place], [place] | | | | | [place], [place] | [id number] | | | | | [address] | | | | | | [phone] | | | +--------+--------+ + + + [...] will come today. rx refill up at [facility] desk elephone Encou nter [...]
--- OUTSIDE RECORDS SUMMARY | ~2020-07-03 | XMS | Encounter Summary ---
Demographics + + + | Address | [address] [facility] [address] | | | [place] [address] | + + + | Home Phone [...] [place] | | | | | [address] | | + + + + + Care Team Providers + +------+ + | Care Chemistry Technician Name | Role | Phone | [...] | | | | hesis | | [place], | | | | | Spinal | | [place] [address] | | | | | stenosis, | | Phone: | | | | | lumbar | | [phone] | | | | | region, | | Fax: | | | | | without | | [phone] | | | | | neurogenic | [...] + + | 07/02/ | Surgery | [facility] | Frandy Teresa, | MIS L5-S1 | | 2013 | | MED CTR OR INTRA OP | DO [address] | TRANSFORAMINAL | | | | [address] | [address] | LUMBAR INTERBODY | | | | [place], [place] | [address] | FUSION | | | | [address] | | | | | | [phone] | | | +--------+---------+ + + + [...] might be different fro m the original. [facility] DISCHARGE SUMMARY PATIENT NAME: Cindy [...] Take 15 mg by mouth nightl y. Appleton-3 Fatty Acids (FISH OIL CONCENTRATE) 1000 MG [...] + + + +---------+ + + | Appleton-3 Fatty | Take 1,000 mg by | [...] as of this encounter Progress Notes Frandy Tereas DO - 07/05/2014 7:25 AM PDTFormatting of [...] SNF versus home with C any time. Mari aT Storm RN - 07/04/2014 6:56 PM PDTFoley cath dc'd and MARI drain dc'd no problems. Chris Lynn PA-C - 07/04/2014 7:43 AM PDT [facility] PROGRESS NOTE Pt. Name/Age/: Cindy Arndt 58 y.o. 1955 Med. Record Number: [id number] Date of admission: 07/02/2014 Subjective: The patient [...] [facility] D/c mari drain and riely cath today. D/c injury/safety hazard assessment. Patient Active Problem List Diagnosis LUMBAR DISC [...] PA-C - 07/03/2014 7:13 AM PDT . [facility] PROGRESS NOTE Pt. Name/Age/: Cindy Arndt 58 y.o. 1955 Med. Record Number: [id number] Date of admission: 07/02/2014 Subjective: The patient [...] Electronically signed by: Chris Nicole, 07/03/2014 7:13 [facility] on [facility] R[facility] - 07/03/2014 6:50 [...] signed by: Frandy Teresa DO, 07/02/2014 11:15 [facility] by Frandy Teresa DO at 06/2014 11:15 AM PDTDreyFrandy tim DO - 07/02/2014 11:15 AM URL794 [facility] [address] [place] [address] FAX: NEUROSURGERY HISTORY AND PHYSICAL EXAMINATION CHIEF [...] Take 15 mg by mouth nigh tly. Appleton-3 Fatty Acids (FISH OIL CONCENTRATE) 1000 MG [...] no apparent deficits with short or 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 teacher memory. CRANIAL NERVES: II: Acuity is intact. [...] Intrinsics 5 5 Ulnar Intrinsics 5 5 Stonework Tracer Strength 5 5 Hip Flexion 5 4* [...] documented in this en counter Procedure Notes [facility] - 07/12/2014 12:00 AM PDT 14 [facility] - 07/04/2014 12:00 AM PDT [facility] - 07/02/2014 12:00 AM PDT documented in this encounter Miscellaneous Notes Plan of Care - [facility] - 07/12/2014 12:00 AM PDT iscellaneous - [facility] 07/12/2014 12:00 AM PDTElec tronically signed by Mariah Schulte at 07/12/2014 1:45 PM PDTMiscellaneous - [facility] - 07/12/2014 12:00 AM PDT i scellaneous - [facility] 07/12/2014 12:00 AM PDT lan of Care - Germaine Louis RN - 07/05/2014 5:00 PM PDTProb honey: General Plan of Care (Adult, Obstetrics) Goal: Care Plan Shift Summary & Review . Outcome: Adequate for Discharge Date Met: 07/05/14 [facility]. Did not feel safe [...] and I will be going to a custodial as I have 16 steps to my [...] TBD) Equipment Recommendations: tub bench;hand held shower head;computer networker;comfort height toilet ( pt. has all necessary [...] might be different fro m the original. [facility] FACILITY TRANSFER ORDERS Patient Name: Cindy Arndt Patient : 1955 Gender: female Date of Admission: 07/02/2014 Date of Discharge: 07/05/2014 Admitting Provider: Frandy Teresa DO Discharging Provider: Chris Nicole PA-C Consultants: none PCP: Natalee Andersen [facility] transferring to: [facility] Provider after transfer: PCP and Dr. Frandy Teresa CODE STATUS: [x] Attempt CPR [] Do not resuscitate If patient is pulseless and not breathing, RN/CLIENT RESOLUTION SPECIALIST may pronounce . Advanced Directives included: [] [...] for this patient. Diet: [] As tolerated DIRECTOR OF BILLING may upgrade or downgrade diet as condition Indicates. [x] RN may downgrade diet as indicated. Type: [] Continue current diet of: Diet and Supplements Diet DIET CONSISTENT CARBOHYDRATE Number of Occurrences: -1 Days [] Other: Consistency/Precautions: [] Whole [] Thin Liquids [] Cut-up [] [place] Thick [] Advanced Chopped [] Honey Thickened [] Chopped [] Advanced Ground [] 1:1 feedings [] Ground/Pureed [] Other: Tube Feedings: [] PEG [] GT [] JT [] NGT [] Formula type: (Jazz Musician may change/substitute if indicated). [] Continuous Rate: [...] & Management for: ____same as above [] DIRECTOR OF BILLING Evaluation &Management for: [] Other: Wound/Skin Care: [...] Take 15 mg by mouth ni linda. Appleton-3 Fatty Acids (FISH OIL CONCENTRATE) 1000 MG [...] Orders/Instructions: Physician's signature:__Chris Nicole PA-C 07/05/2014 13:18 [facility] USE ONLY: [] Admitting [...] tolerate progressive walking and doing stairs [facility] hospital stay due to multiple pain c/o. Attempted to see pt. 1145, however had just rec eived pain medication and requested PT return, SPL 9/10. At 1205 pt contacted PT for assist OOB due to left LE spasms and need for position change. Sitting at EOB on arrival, SENIOR ELECTRONICS ENGINEER pres ent. Pt. donned LSO brace, [...] of endurance. When patient is walking in [facility] with a regular FWW she has to stop frequently and states she feels very weak, like sh e may fall. Patient lives alone. Outpatient prescriptions are filled at [facility] in [facility]. Electronically signed by: Franca Narvaez RN 07/05/2014 10:43 lan of Adilene Layne Rivers - 07/05/2014 10:39 AM PDTFaxed referral to [facility]out and [facility]idia Tarn. [place] : [id number] and [place]: [id number] Electronically signed by: Layne Collado 07/05/2014 10:40 Received a call from [facility]. They can accept Cindy. Received a call from [facility] Tr[facility] and they can't accept Cindy. Tanna from [facility] called and they don't have any beds at this time Electronically signed by: Layne Collado 07/05/2014 12:22 Started the SNF packet. Electronically signed by: Layne Collado 07/05/2014 12:56 lan of [facility] - Sandhya Benites RN - 07/05/2014 5:14 [...] TBD) Equipment Recommendations: tub bench;hand held shower head;computer networker;comfort height toilet ( pt. has all necessary equipment) Planned Interventions: ADL retraining;transfer training Patient Status/Goals Reflects last filed data of patient status; may be from multiple contributors. Grooming: Status: did not occur today Assist: Utilizes: STG: Status: New Goal:modified independent LTG: Status: Goal: UE Dressing: Status: SBA Assist: Utilizes: STG: Status: Goal: LTG: Status: Goal: LE Dressing: Status: SBA Utilizes: computer networker STG: Status: New Goal: modified independent LTG: [...] bed mobil ity. Pt has been using ONLINE MARKETING ANALYST and pain pills during the night. Zofran [...] by herself in a small apartment in [place]. Patient states she has her apartment set [...] to come from [facility] [place]. She states the Said she might benefit [facility] upon discharge. She would like me to contact [facility] to giv e them a heads up. I called and spoke to Summer at [facility] , told her patients PCP i s [...] Pt. resting in bed on arrival, used ONLINE MARKETING ANALYST x 2 during session. SPL /10. Pt. hoping to urinate brusher operator to straight cath. Sidelying to sit [...] TBD) Equipment Recommendations: tub bench;hand held shower head;computer networker;comfort height toilet ( pt. has all necessary [...] & Review . Outcome: Progressing Pt using ONLINE MARKETING ANALYST and PO pain pills, c/o numbness on [...] with minimal amount of drainage. lan of pSike Woodward ra, RN - 07/03/2014 4:25 AM [...] and on a continuous oximeter for her ONLINE MARKETING ANALYST. She was unable to do her IS because o f the medications. She has the IS at bedside with a goal of 2400. She did not require additi onal respiratory care throughout the evening. p Note - Frandy Teresa, DO - 07/02/2014 2:25 PM PDTDATE: 07/02/2014 SURGEON: Frandy Teresa MD. PM HEAD COOK: ZANE Oh PREOPERATIVE DIAGNOSES 1. Spondylolisthesis, L5-S1. [...] x 26 mm Capstone PEEK cage from [employer] was chosen. It was filled with Infus [...] Note Cindy Arndt 58 y.o. female 1955 [id number] Proc. Date 07/02/2014 Preop Dx Spondylolisthesis L5-S1 Postop Dx same Procedure Procedure(s):MIS L5-S1 TRANSFORAMINAL LUMBAR INTERBODY FUSION Anesthesia General Surgeon Frandy Teresa DO Vrt Mechanic ZANE Oh EBL 100 mL Findings Findings consistent with scheduled procedure. No other abnormalities found. Complications none Specimens * No specimens in log * Drains Electronically signed by: Frandy Teresa DO 07/02/2014 14:22 [facility] documented in this en counter Plan [...] | [address] | [place] | [phone] | | [facility] | | [address] | | | - LABORATORY | | | | + + + + + | [facility] | [address] | [place] | | | [facility] | | [id number] | | [...] | [address] | [place], [place] | [phone] | | [facility] | | [address] | | | - LABORATORY | | | | + + + + + | [address] | [address] | [place], [place] | | | [facility] | | [address] | | [...] [address] | [place] | [phone] | | [facility] | | [address] | | | - LABORATORY | | | | + + + + + | [facility] | [address] | [place], [place] | | | [facility] | | [address], [facility] | | | - [...] | [address] | [place] | [phone] | | [facility] | | [address] | | | - LABORATORY | | | | + + + + + | [facility] | [address] | [place], [place] | | | [facility] | | [id number] | | [...] [address] | [place] | [phone] | | [facility] | | [address] | | | - LABORATORY | | | | + + + + + | [address] [facility] | [address] | [place] | | | [facility] | | [address] | | [...] | [address] | [place], [place] | [phone] | | [facility] | | [address] | | | - LABORATORY | | | | + + + + + | [facility] | [address] | [place], [place] | | | [facility] | | [id number] | | | - LABORATORY [...] [address] | [place] | [phone] | | [facility] | | [address] | | | - LABORATORY | | | | + + + + + | [facility] | [address] | [place] | | | [facility] | | [address], [facility] | | | - [...] | [address] | [place], [place] | [phone] | | [facility] | | [address] | | | - LABORATORY | | | | + + + + + | [facility] | [address] | [place], [place] | | | [facility] | | [id number] [place] [address] | | | - LABORATORY | | [...] | [address] | [place], [place] | [phone] | | [facility] | | [address] | | | - LABORATORY | | | | + + + + + | [address] [facility] | [address] | [place], [place] | | | [facility] | | [address] | | [...] | of hardware for posterior fusion from [employer] S1 with interbody hardware at L5-S1. The [...] + | MISCELLANEOUS LAB | | | [phone] | + +---------+ + + | MISCELANIOUS LAB | | | [phone] | + +---------+ + + POC Glucose [...] | [address] | [place], [place] | [phone] | | [facility] | | [address] | | | - LABORATORY | | | | + + + + + | [facility] | [address] | [place] | | | [facility] | | [address] | | [...] + | [facility] | [address] | [place] | [phone] | | [facility] | | [address] | | | - LABORATORY | | | | + + + + + | [facility] | [address] | [place], [place] | | | [facility] | | [address] | | [...] [address] | [place] | [phone] | | [facility] | | [address] | | | - LABORATORY | | | | + + + + + | [facility] | [address] | [place] | | | [facility] | | [address], [facility] | | | - [...] | [address] | [place] | [phone] | | [facility] | | [address] | | | - LABORATORY | | | | + + + + + | [facility] | [address] | [place], [place] | | | [facility] | | [address], [facility] | | | - [...] [address] | [place] | [phone] | | [facility] | | [address] | | | - LABORATORY | | | | + + + + + | [facility] | [address] | [place] | | | [facility] | | [address] | | [...] | [address] | [place] | | | [facility] | | [address] | | | - BLOOD BANK | [...] mLs | | Surgical | | 1:200,000 0.25-1:795123 % | | 14 12:42 | | [...]
--- OUTSIDE RECORDS SUMMARY | ~2020-07-03 | XMS | Encounter Summary ---
Demographics + + + | Address | [address] [facility] [address] | | | [place] [address] | + + + | Home Phone [...] [place] | | | | | [address] | | + + + + + Care Team Providers + +------+ + | Care Optical Instrument Specialist Name | Role | Phone | [...] + | 07/29/ | Telephone | [facility] | Frandy Cagle, | Other (multiple | | 2013 | | NEUROSURGERY [address] | DO [address] | questions) | | | | [facility] | [address] [place], [place] | | | | | [place], [place] | [id number] | | | | | [address] | | | | | | [phone] | | | +--------+ + + + [...] and I might get a repeat MRI. [place] ordered. Thanks. ddendum Note - Shayne Aragon [...] - 07/29/2014 11:19 AM PDTCall [facility] to get fur ther information. She would [...] refill be mailed to her for her [place] 10/325mg which was given to her on [...]
--- OUTSIDE RECORDS SUMMARY | ~2020-07-03 | XMS | Encounter Summary ---
Demographics + + + | Address | [address] [facility] [address] | | | [place] [address] | + + + | Home Phone [...] [place] | | | | | [address] | | + + + + + Care Team Providers + +------+ + | Care Hydraulic Blocker Name | Role | Phone | [...] MED CTR SLEEP | MD [address] | | | | | [place] [address] | [address] [place] | | | | | [place], [place] | [place] [address] | | | | | [address] | [phone] | | | | | [phone] | | | +--------+ + + + [...] - 02/29/2012 2:36 PM PDTDATE: 02/29/2012 cc: [facility] Sleep Center Deon Gonzales Jr., MD, [facility] POSITIVE PRESSURE TITRATION STUDY CLINICAL INFORMATION: This [...] the patient scored 18 points on the Jackson Sleepiness Scale, which endorses a severe degree [...] advised. Deon Gonzales Jr., MD, FAASM Diplomate [place] Board of Internal Medicine Diplomate in Sleep Medicine [place], [facility] Clinical Shellfish Harvester [facility], [facility] JOB #: [id number] EXT JOB #:[id number] EDITED: 03/03/2012 07:26 <Electronically Signed by Deon Gonzales MD> 03/03/12 0848 documented in this encounter Plan of Treatment Not on filedocumented as of this encounter Visit Diagnoses Not on filedocumented in this encounter"
--- OUTSIDE RECORDS SUMMARY | ~2020-07-03 | XMS | Encounter Summary ---
Demographics + + + | Address | [address] [facility] [address] | | | [place] [address] | + + + | Home Phone [...] [place] | | | | | [address] | | + + + + + Care Team Providers + +------+ + | Care Butt Maker Name | Role | Phone | [...] + + | 07/08/ | Telephone | [facility] | Frandy Teresa, | Other (post op call | | 2013 | | NEUROSURGERY [address] | DO [address] | ) | | | | [facility] | [address] [place], [place] | | | | | [place], [place] | [id number] | | | | | [address] | | | | | | [phone] | | | +--------+ + + + [...] Aragon Cert MA - 07/08/2014 11:04 [facility] SHAYNE ARAGON documented in this encounter Plan of Treatment Not on filedocumented as of this encounter Visit Diagnoses Not on filedocumented in this encounter"
--- OUTSIDE RECORDS SUMMARY | ~2020-07-03 | XMS | Encounter Summary ---
Demographics + + + | Address | [address] [facility] [address] | | | [place] [address] | + + + | Home Phone [...] [place] | | | | | [address] | | + + + + + Care Team Providers + +------+ + | Care Abrasive Coating Machine Operator Name | Role | [...] [place] | | | | | | [address] | | | | | | [phone] | | | +--------+ + + + [...]
--- OUTSIDE RECORDS SUMMARY | ~2020-07-03 | XMS | Encounter Summary ---
Demographics + + + | Address | [address] [facility] | | | [place] [address] | + + + | Home Phone [...] [place] | | | | | [address] | | + + + + + Care Team Providers + +------+ + | Care Digital Designer Name | Role | Phone | + +------+ + | Natalee Andersen NP | PCP | | + +------+ + Encounter Details +--------+ + + + + | Date | Type | Department | Care Team | Description | +--------+ + + + + | 06/25/ | Hospital | [facility] | Frandy Teresa, | Diabetes mellitus | | 2014 | Encounter | MED CTR OR INTRA OP | DO [address] | ([facility]) (Primary Dx) | | | | [address] | [address] [place], [place] | | | | | [place], [place] | [address] | | | | | [address] | | | | | | [phone] | | | +--------+ + + + [...] 0 | 03/31/20 | | | (ZYPREXA SHNANONIS) 15 | nightly. | | | 12 | 5 | | MG disintegrating | | | | | | | tablet | | | | | | + + + +---------+ + + | [place]-3 Fatty | Take 1,000 mg by | [...] this en counter H&P Notes ONBRUCE ABREU [facility] - 06/21/2014 12:00 AM PDT 14 [...] MD at 06/26/2014 8:[address] [facility] - 06/26 12:00 AM PDT NBASE SERA N [facility] - 06/26/2014 12:[address] [facility] - 06/12/2014 12:00 AM PDTElectronically signed by Mariah Schulte at 06/12 7:[address] [facility] - 06/11/2014 12:00 AM PDT documented in this encounter Miscellaneous Notes Miscellaneous - ONBASE SCAN [facility] - 06/26/2014 12:00 AM PDT lan [...] stenosis, lumbar region, without neurogenic claudication ). Back Strip Machine Operator visit is in response to an electronic spiritual care consult request. Patient wa s resting comfortably in bed; she was attended by her mom and dad - both sate nearby and see med very attentive and supportive. Cindy is Protestant, attends [employer], and is strong in her rangel. She is excited about taking care of her back problem and fe els very secure in Dr. Teresa's care. She welcomed prayer, and expressed appreciation for th visit. Follow up with regular visits, emotional and spiritual support. iscellaneo us - ONBASE SCAN [facility] - 06/25/2014 12:00 AM PDTElectronically signed [...] | Procedure Note | + + | Ternece Madison MD - 06/26/2014 8:04 AM PDT [...] | mL/min/1.73m2 | [facility] | | | Libyan | RATE,ESTIMATED | | MEDICAL | | | | mL/min/1.58z9Nqid than | | CENTER - | | [...] + | [facility] | [address] | [place] | [phone] | | [facility] | | [address] | | | - LABORATORY | | | | + + + + + | [facility] | [address] | [place] | | | [facility] | | [address], [facility] | | | - LABORATORY [...] + | [facility] | [address] | [place] | [phone] | | [facility] | | [address] | | | - LABORATORY | | | | + + + + + | [facility] | [address] | [place], [place] | | | [facility] | | [address], [facility] | | | - LABORATORY [...] | Time | | seconds | [facility] | | | | [...] + | [facility] | [address] | [place] | [phone] | | [facility] | | [address] | | | - LABORATORY | | | | + + + + + | [facility] | [address] | [place] | | | [facility] | | [address] | | | - LABORATORY [...] + | [facility] | [address] | [place] | | | [facility] | | [address] | | | - BLOOD BANK | [...] + | [facility] | [address] | [place], [place] | [phone] | | [facility] | | [address] | | | - LABORATORY | | | | + + + + + | [facility] | [address] | [place], [place] | | | [facility] | | [address] [place] [address] | | | - LABORATORY | | [...]
--- OUTSIDE RECORDS SUMMARY | ~2020-07-03 | XMS | Encounter Summary ---
Demographics + + + | Address | [address] [facility] | | | [place] [address] | + + + | Home Phone [...] [place] | | | | | [address] | | + + + + + Care Team Providers + +------+ + | Care White Lead Grinder Name | Role | Phone | [...] | | | [address] [place] | [place] [address] | | | | | [place] [address] | | | | | | [phone] | | | +--------+ + + + [...]
--- OUTSIDE RECORDS SUMMARY | ~2020-07-03 | XMS | Encounter Summary ---
Demographics + + + | Address | [address] [facility] | | | [place] [address] | + + + | Home Phone [...] [place] | | | | | [address] | | + + + + + Care Team Providers + +------+ + | Care Brass Wind Instrument Maker Name | Role | Phone [...] | 07/19/ | Telephone | [facility] | Frandy Teresa, | Appointment | | 2013 | | NEUROSURGERY [address] | DO [address] | | | | | [address] | [address] [place], [place] | | | | | [place], [place] | [id number] | | | | | [address] | | | | | | [phone] | | | +--------+ + + + [...] Spivey - 07/22/2014 8:09 AM PDTSusalesly from [facility] called back this morning to isamar mejía that she spoke with the patient again regarding this appointment and the patient would be ok with rescheduling to a time the following week. She just didn't want to make the trip down here right after she got back home to [place]. Heather can be reached at [phone] ectronically signed by Tiffani Humphrey at 07/22/2014 8:11 AM PDTTelephone Encounter - Lashawn Metzger - 07/19/2014 12:56 PM PDTSusan from [facility] called [...]
--- OUTSIDE RECORDS SUMMARY | ~2020-07-03 | XMS | Encounter Summary ---
Demographics + + + | Address | [address] [facility] | | | [place] [address] | + + + | Home Phone [...] [place] | | | | | [address] | | + + + + + Care Team Providers + +------+ + | Care Game Breeding Farm Manager Name | Role | Phone | [...] | | | spondylolist | | [address] | | | | | hesis | | [place], | | | | | Spinal | | [place] [address] | | | | | stenosis, | | Phone: | | | | | lumbar | | [phone] | | | | | region, | | Fax: | | | | | without | | [phone] | | | | | neurogenic | [...] | | | | | [address] | [address] [place] | | | | | [place] | [address] | | | | | [address] | | | | | | [phone] | | | +--------+ + + + [...] +----+---+ + + | | 1 | [place]lem | | | | 2 | 43-degrees | | | | 3 | | | | | 1 | | | +----+---+ + + | | 1 | [place] off | | | | 4 | [...] EVALUATION Cindy Arndt 58 y.o. female 1955 [id number] Procedure: Procedure(s):MIS L5-S1 TRANSFORAMINAL LUMBAR INTERBODY FUSION [...] by Zen Mccord MD 07/02/2014 14:55 [facility] nesthesia Preproc edure Evaluation - Zen Mccord MD - 07/02/2014 8:36 AM PDTFormatting of this note m ight be different from the original. ANESTHESIA PREANESTHESIA EVALUATION Cindy Arndt 58 y.o. female 1955 [id number] Scheduled procedure LAMINECTOMY PLIF/TLIF INSTRUMENTATION [184] - [...]
--- OUTSIDE RECORDS SUMMARY | ~2020-07-03 | XMS | Encounter Summary ---
Demographics + + + | Address | [address] [facility] [facility] | | | [place] [address] | + + + | Home Phone [...] [place] | | | | | [address] | | + + + + + Care Team Providers + +------+ + | Care Reed Worker Name | Role | Phone | [...] | spinal fusion | | | | [address] [place] | [address] [place], [place] | | | | | [place] [address] | [address] | | | | | [phone] | | | +--------+ + + + [...] + + + +---------+ + + | [place]-3 Fatty | Take 1,000 mg by | [...] + | MISCELLANEOUS LAB | | | [phone] | + +---------+ + + | MISCELANIOUS LAB | | | [phone] | + +---------+ + + documented in this encounter Visit Diagnoses + + | Diagnosis | + + | Status post lumbar spinal fusion Arthrodesis status | + + documented in this encounter"
--- OUTSIDE RECORDS SUMMARY | ~2020-07-03 | XMS | Encounter Summary ---
Demographics + + + | Address | [address] [facility] | | | [place] [address] | + + + | Home Phone [...] [place] | | | | | [address] | | + + + + + Care Team Providers + +------+ + | Care Office Messenger Name | Role | Phone | + [...] | | [address] | [place] [address] | | | | | [place] | [phone] | | | | | [address] | | | | | | [phone] | | | +--------+ + + + [...] Percocet prescription and faxed it to them ([facility]) this morning like I told them I would. Thank you for doing that, but it should not have been necessary. Telephone Encounter - Lincoln Cheema MD - 07/06/2014 8:59 PM PDTCalled regarding increased p ain. She was taking percocet. She was discharged to a [facility] on hydrocodone. I talked to the [...]
--- OUTSIDE RECORDS SUMMARY | ~2020-07-03 | XMS | Encounter Summary ---
Demographics + + + | Address | [address] [facility] [address] | | | [place] [address] | + + + | Home Phone [...] [place], [place] | | | | | [address] | | + + + + + Care Team Providers + +------+ + | Care Pelletising Extruder Operator Name | Role | Phone | + +------+ + PCP | Unavailable | + +------+ + Encounter Details +--------+ + + + + | Date | Type | Department | Care Team | Description | +--------+ + + + + | 12/27/ | Hospital | [facility] | | | | 1997 - | Encounter | [facility] GENER[facility] | | | | | | CONV DEPT [address] | | | | 01/01/ | | Bertha Welsh, | | | | 1997 | | [place] [address] | | | | | | [phone] | | | +--------+ + + + [...]
--- OUTSIDE RECORDS SUMMARY | ~2020-07-03 | XMS | Encounter Summary ---
Demographics + + + | Address | [address] [facility] | | | [place] [address] | + + + | Home Phone [...] [place] | | | | | [address] | | + + + + + Care Team Providers + +------+ + | Care Architecture Faculty Member Name | Role | Phone [...] + + | 08/20/ | Documentati | [facility] | Katharine Moncada, | Other (urgent | | 2019 | on | CARDIOLOGY GENESIS | Technologist | report) | | | | [address] | | | | | | [place] | | | | | | [address] | | | | | | [phone] | | | +--------+ + + + [...]
--- OUTSIDE RECORDS SUMMARY | ~2020-07-03 | XMS | Encounter Summary ---
Demographics + + + | Address | [address] [facility] | | | [place] [address] | + + + | Home Phone [...] [place] | | | | | [address] | | + + + + + Care Team Providers + +------+ + | Care Pile Header Name | Role | Phone | + +------+ + | Natalee Andersen NP | PCP | | + +------+ + Encounter Details +--------+ + + + + | Date | Type | Department | Care Team | Description | +--------+ + + + + | 09/27/ | Hospital | [facility] | Frandy Teresa, | Lumbar spondylosis; | | 2013 | Encounter | MED CTR XRAY [address] | DO [address] | S/P lumbar fusion | | | | [place] | [address] [place], [place] | | | | | [place] [address] | [address] | | | | | [phone] | | | +--------+ + + + [...] + + +---------+ + + | [place]-3 Fatty | Take 1,000 mg by | [...] + | Manohar Martinez Results In - 09/27/2014 5:14 PM PST [...] + | MISCELLANEOUS LAB | | | [phone] | + +---------+ + + | MISCELANIOUS LAB | | | [phone] | + +---------+ + + documented in this encounter Visit Diagnoses + + | Diagnosis | + + | Lumbar spondylosis Lumbosacral spondylosis without myelopathy | + + | S/P lumbar fusion Arthrodesis status | + + documented in this encounter"
--- OUTSIDE RECORDS SUMMARY | ~2020-07-03 | XMS | Encounter Summary ---
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 RETOUCHER [address] | | | | | fibrillation | [address] | [place] | | | | | History of | [address] | [place], [place] | | | | | stroke | [place], [place] | [address] | | | | | Sinus | [address] | Phone: | | | | | tachycardia | Phone: | [phone] | | | | | by | [phone] | Fax: | | | | | electrocardi | Fax: | [phone] | | | | | ogram New | [phone] | | | | | | onset [...] + + | 01/09/ | Office | [facility] | Roxannmiguel ángelDora | History of atrial | | 2019 | Visit | CARDIOLOGY [place] | CAROLINE Mendez [address] | fibrillation | | | | [address] | [place] SCHAFER F | (Primary Dx); Benign | | | | [address] | [place] [address] | essential HTN; | | | | [place], [place] | [phone] | History of | | | | [address] | | hypothyroidism; | | | | [phone] | | Stress | | | | [...] an urgent Echo to be done at [facility] to follow up on new left bundle [...] of fatigue and shortness of breath. Her HGQ1BS9 VASC score is 4 (stroke, HTN, gender) [...] go back to volunteering at the local [employer], though this plan will need to be on hold with current epidemic restrictions . She reports after she lost 160 pounds with a gastric sleeve that she was retested for sle ep apnea 2 years ago, and told the results negative, but has not had CPAP for 3 years She has previously seen Dr. Garland in [place], and different sleep provider in [facility] when lived over there. She [...] thirst or hunger. Psychiatric/Behavioral: Bipolar/Schizophrenia. Tx'd by [employer] Vaccines: Current on flu vaccine: 2019 Current on pneumonia vaccine:PPSV 23 05/29/2013 Habits/Social : Denies history of smoking. Denies EtOH use. Denies recreational or illici t drug use. Exercises sporadically. Lives in [place] . Outpatient Medications Prior to Visit Medication [...] by mouth nightly. Blood Glucose Monitoring Suppl ([place] VERIO FLEX SYSTEM) w/Device KIT by Does [...] bundle bran ch block Rate 74 bpm, SC 204 ms, QRS 138 ms, QTC 488 ms, tracing personally reviewed by me and Dr. Peterson. compared to EKG performed in November, new left bundle branch block, lead III has lower voltage QRS also in aVL and aVF, and improved voltage to anterior leads and rate i s better controlled. LABS Labs: 12/26/2018: ( [facility])CMP: Sodium 139, potassium 4.2, chloride 99, BUN 10, creatinine 0. 7, BNP 28. CBC: WBC 7.8, hemoglobin 14.3, hematocrit 42.7, platelets 214 Labs: 09/28/2019:( [facility]) CBC: WBC 7.8, hemoglobin 14.9, hematocrit 43.8, platelets 221. C MP: Sodium 132, potassium 4.2, chloride 95, AST 76, ALT 76, alk phos 134 Labs: 10/11/2019:( [facility]) CBC: WBC 6.7, RBC 4.97, hemoglobin 15.2, hematocrit 44.7, platel ets 200. CMP: Glucose 385, BUN 7, creatinine 0.62, GFR 97, sodium 131, potassium 4.1, chlor kelby 95, albumin 4.3, total bilirubin 0.6, AST 75, ALT 73, alk phos 144. Thyroid: TSH 4.27 Labs: 10/12/2020:( [facility]) CBC: WBC 7, RBC 4.93, hemoglobin 14.7, hematocrit 44.1, platele ts 186 normal UA CMP: Glucose 381, BUN 6, creatinine 0.63, GFR 95, sodium 133, potassium 3.8 , chloride 97, albumin 4.3, total bili 0.6, AST 62, ALT 75, alk phos 145 thyroid: TSH 3.07 Labs: 10/20/2019:( [facility]) CBC: WBC 7.1, RBC 4.93, [...] and reviewed her EKG results with her american history professor, Dr. Peterson, who is in the cli vickie today, and the plan is to get an updated echo to evaluate her for any new wall motion ab normalities. If she has any wall motion abnormalities, she will need to have further evalua tion for ischemic heart disease in [place] such as a stress test or angiogram I reviewed her EKG with her, and discussed this plan with her. The Echo will be ordered on an urgent basis, is currently a restriction on all nonurgent testing at [facility] . She was agreeable to this plan [...] continuity of care purp ose Preston BUCIO [facility]iology 01/10/2020 docume nted in this encounter [...]
--- OUTSIDE RECORDS SUMMARY | ~2020-07-03 | XMS | Encounter Summary ---
Demographics + + + | Address | [address] [facility] | | | [place] [address] | + + + | Home Phone [...] [place] | | | | | [address] | | + + + + + Care Team Providers + +------+ + | Care It Field Technician Name | Role | Phone | [...] + + | 09/10/ | Documentati | [facility] | Katharine Moncada, | Other (urgent | | 2019 | on | CARDIOLOGY GENESIS | Technologist | report) | | | | [address] | | | | | | [place] | | | | | | [address] | | | | | | [phone] | | | +--------+ + + + [...]
--- OUTSIDE RECORDS SUMMARY | ~2020-07-03 | XMS | Encounter Summary ---
Demographics + + + | Address | [address] [facility] | | | [place] [address] | + + + | Home Phone [...] [place], [place] | | | | | [address] | | + + + + + Care Team Providers + +------+ + | Care Curtain Stitcher Name | Role | Phone | [...] [address] | | | | | | [place], [place] | | | | | | [address] | | | | | | [phone] | | | +--------+ + + + [...]
--- OUTSIDE RECORDS SUMMARY | ~2020-07-03 | XMS | Encounter Summary ---
Demographics + + + | Address | [address] [facility] | | | [place] [address] | + + + | Home Phone [...] [place] | | | | | [address] | | + + + + + Care Team Providers + +------+ + | Care Manager Of Tax Name | Role | Phone | [...] | 05/13/ | Telephone | [facility] | Frandy Teresa, | Other | | 2013 | | NEUROSURGERY [address] | DO [address] | | | | | [address] | [address] [place], [place] | | | | | [place], [place] | [id number] | | | | | [address] | | | | | | [phone] | | | +--------+ + + + [...]
--- OUTSIDE RECORDS SUMMARY | ~2020-07-03 | XMS | Encounter Summary ---
Demographics + + + | Address | [address] [facility] | | | [place] [address] | + + + | Home Phone [...] [place] | | | | | [address] | | + + + + + Care Team Providers + +------+ + | Care Route Rider Supervisor Name | Role | Phone | [...] 2019 | | CARDIOLOGY GENESIS Abad, Dental Associate | called about | | | | [address] | | metoprolol. ) | | | | [place] | | | | | | [address] | | | | | | [phone] | | | +--------+ + + + [...] Miscellaneous Notes Telephone Encounter - Ashley Chávez, Dental Associate - 10/23/2019 10:49 AM Rory t called [...] back when I have her recommendations. JKASSIE:IRINA-AAMA. [facility] umented in this encounter Plan of Treatment Not on filedocumented as of this encounter Visit Diagnoses Not on filedocumented in this encounter"
--- OUTSIDE RECORDS SUMMARY | ~2020-07-03 | XMS | Encounter Summary ---
Demographics + + + | Address | [address] [facility] | | | [place] [address] | + + + | Home Phone [...] [place] | | | | | [address] | | + + + + + Care Team Providers + +------+ + | Care Form Maker Plaster Name | Role | Phone | + [...] + + | 06/12/ | Office | [facility] | Chris Nicole, | Spondylisthesis | | 2013 | Visit | NEUROSURGERY [address] | PA-C [address] | (Primary Dx); | | | | [address] | [place], [place] | Radiculopathy of | | | | [place], [place] | [address] | leg; Lumbar spine | | | | [address] | | instability; Lumbar | | | | [phone] | | spondylosis; | | | | [...] f rom the original. ZANE Castillo [address] [facility] [place], [place] [id number] FAX: NEUROSURGERY HISTORY AND PHYSICAL EXAMINATION CHIEF [...] Take 15 mg by mouth nightl y. [place]-3 Fatty Acids (FISH OIL CONCENTRATE) 1000 MG [...] has no apparent deficits with short or ferry terminal agent memory. CRANIAL NERVES: II: Acuity is intact. [...] Intrinsics 5 5 Ulnar Intrinsics 5 5 Civil Defense Director Strength 5 5 Hip Flexion 5 4* [...]
--- OUTSIDE RECORDS SUMMARY | ~2020-07-03 | XMS | Encounter Summary ---
Demographics + + + | Address | [address] [facility] | | | [place] [address] | + + + | Home Phone [...] + + + | Author | [facility] | + + + | Organization | [facility] | + + + | Address | Unknown | + + + | Phone | Unavailable | + + + Support + + + + + | Name | Relationship | Address | Phone | + + + + + | Kelsy Bautista | E[address] | [address] | | | | | [place] | | | | | [address] | | + + + + + Care Team Providers + +------+ + | Care Junior Brand Manager Name | Role | Phone | [...] [address] | | | | | | [place], [place] | | | | | | [address] | | | +--------+ + + + [...]
--- OUTSIDE RECORDS SUMMARY | ~2020-07-03 | XMS | Encounter Summary ---
Demographics + + + | Address | [address] [facility] | | | [place] [address] | + + + | Home Phone [...] [place] | | | | | [address] | | + + + + + Care Team Providers + +------+ + | Care High Pressure Firer Name | Role | Phone | [...] + | 02/27/ | Telephone | [facility] | Katharine Cardona PA-C | Appointment (New | | 2014 | | MEDICINE [address] [place] | Patient) | | | | [place], | [place] [address] | | | | | [place] [address] | [phone] | | | | | [phone] | | | +--------+ + + + [...] patients. Those patients are re ferred to [facility]. Cindy stated that would be [...]
--- OUTSIDE RECORDS SUMMARY | ~2020-07-03 | XMS | Encounter Summary ---
Demographics + + + | Address | [address] [facility] | | | [place] [address] | + + + | Home Phone [...] [place] | | | | | [address] | | + + + + + Care Team Providers + +------+ + | Care Licensed Mass Real Estate Appraiser Name | Role | Phone | + +------+ + | Natalee Andersen NP | PCP | | + +------+ + Encounter Details +--------+ + + + + | Date | Type | Department | Care Team | Description | +--------+ + + + + | 06/26/ | Hospital | [facility] | Heather Cordero PT | | | 2013 | Encounter | MED CTR ACUTE | [address] | | | | | PHYSICAL THERAPY | [place] | | | | | [address] [place] | [address] | | | | | [place] [address] | | | | | | [phone] | | | +--------+ + + + [...] + + + +---------+ + + | [place]-3 Fatty | Take 1,000 mg by | [...]
--- OUTSIDE RECORDS SUMMARY | ~2020-07-03 | XMS | Encounter Summary ---
Demographics + + + | Address | [address] [facility] | | | [place] [address] | + + + | Home Phone [...] [place] | | | | | [address] | | + + + + + Care Team Providers + +------+ + | Care Asset Coordinator Name | Role | Phone [...] as of this encounter Procedure Notes Interface, Stock Holder In - 11/04/2006 3:03 AM PST [address] [id number] [facility] OPERATION RECORD Med Rec No.: [id number] Date: 07/08/98 Name: Cindy Arndt ATTENDING SURGEON: Lazaro Tello M.D. Professor, wellness trainer(S): Jose Dawson M.D. Fellow, Ophthalmology PREOPERATIVE DIAGNOSIS: [...] skin retractor was put in place. The [place] elevators were used to separate the orbicularis [...] no complications. Lazaro Tello M.D. Professor, Ophthalmology MEKHI/degar P cc: documente d in this encounter [...] | Transcriptions | + + | Interface, Stock Holder In - 11/04/2006 3:03 AM PST | | [facility] | | [place], [place] [address] [facility] | | ClinicsOPERATION RECORDMed [...] skin retractor was put in place. The [place] elevators wereused to separate the | | [...]
--- OUTSIDE RECORDS SUMMARY | ~2020-07-03 | XMS | Encounter Summary ---
Demographics + + + | Address | [address] [facility] | | | [place] [address] | + + + | Home Phone [...] [place] | | | | | [address] | | + + + + + Care Team Providers + +------+ + | Care Lock Tender Name | Role | Phone | [...] [address] | [address] [place], [place] | Anxiety; Anemia; | | | | [place], [place] | [address] | Irregular heartbeat; | | | | [address] | | Depression; | | | | [phone] | | Migraine; | | | | [...]
--- OUTSIDE RECORDS SUMMARY | ~2020-07-03 | XMS | Encounter Summary ---
Demographics + + + | Address | [address] [facility] [address] [facility] | | | [place] [address] | + + + | Home Phone [...] [place] | | | | | [address] | | + + + + + Care Team Providers + +------+ + | Care Eyelet Machine Operator Name | Role | Phone [...] [place] | | | | | | [address] | | | | | | [phone] | | | +--------+ + + + [...]
--- OUTSIDE RECORDS SUMMARY | ~2020-07-03 | XMS | Encounter Summary ---
Demographics + + + | Address | [address] [facility] [address] [facility] [address] [facility] | | | [place] [address] | + + + | Home Phone [...] [place] | | | | | [address] | | + + + + + Care Team Providers + +------+ + | Care Population Health Coach Name | Role | Phone | [...] + + | 10/04/ | Office | [facility] | Desiree Peterson DO | ROGERS on CPAP (Primary | | 2019 | Visit | CARDIOLOGY [place] | [address] | Dx); Morbid obesity | | | | [address] | [place] [address] [place], [place] | ([facility]); Benign | | | | [address] | [address] | essential HTN; | | | | [place], [place] | | Atrial fibrillation, | | | | [address] | | unspecified type | | | | [phone] | | (HCC) | +--------+---------+ + + [...] in this encounter Progress Notes Desiree [place], DO - 10/04/2019 11:40 AM PST [facility] Cardiology Cardiology Follow Up Note Reason [...] rtake in exercise. She recently got a [employer] and has been walking him more regularly. [...] by mouth daily. Blood Glucose Monitoring Suppl (Covenant Surgical PartnersIO FLEX SYSTEM) w/Device KIT by Does not ap ply route. budesonide-formoterol (SYMBICORT) 160-4.5 MCG/ACT inhaler Inhale 2 puffs into the lungs 2 (two) times daily. Calcium Carbonate Antacid 1000 MG tablet Take 1,000 mg by mouth 3 (three) times daily. Cholecalciferol (VITAMIN D3) 30[address] units CAPS Take by mouth once a [...]
--- OUTSIDE RECORDS SUMMARY | ~2020-07-03 | XMS | Encounter Summary ---
Demographics + + + | Address | [address] [facility] | | | [place] [address] | + + + | Home Phone [...] [place] | | | | | [address] | | + + + + + Care Team Providers + +------+ + | Care Monitoring Analyst Name | Role | Phone | [...] | | | | | pain, | [place], [place] | | | | | | bilateral | [address] | | | | | | Degenerative | Phone: | | | | | | disc | [phone] | | | | | | disease, | Fax: | | | | | | lumbar | [phone] | | | | | | Spinal [...] [address] | [address] [place], [place] | (Primary Dx); Knee | | | | [place], [place] | [address] | pain, bilateral; | | | | [address] | | DEGENERATIVE DISC | | | | [phone] | | DISEASE, LUMBAR | | | [...]
--- OUTSIDE RECORDS SUMMARY | ~2020-07-03 | XMS | Encounter Summary ---
Demographics + + + | Address | [address] [facility] | | | [place] [address] | + + + | Home Phone [...] [place] | | | | | [address] | | + + + + + Care Team Providers + +------+ + | Care Hawk Missile System Crewmember Name | Role | Phone | + [...] + + | 08/16/ | Documentati | [facility] | Katharine Moncada, | Other (urgent | | 2019 | on | CARDIOLOGY [place] | Technologist | report) | | | | [address] | | | | | | [place] | | | | | | [address] | | | | | | [phone] | | | +--------+ + + + [...]
--- OUTSIDE RECORDS SUMMARY | ~2020-07-03 | XMS | Encounter Summary ---
Demographics + + + | Address | [address] [facility] | | | [place] [address] | + + + | Home Phone [...] [place] | | | | | [address] | | + + + + + [...] + | 04/30/ | Office | [facility] | Russell Alfaro PA | ROGERS on CPAP (Primary | | 2015 | Visit | SLEEP DISORDER [address] | [address] | Dx) | | | | [address] [place] | [place] | | | | | [place] [address] | [address] | | | | | [phone] | | | +--------+---------+ + + + [...] Insomnia Severity Index Insomnia Severity Index 13 Granby Sleepiness Scale Sitting and reading 3 Watching [...] appro priate paperwork. Thirty minutes were spent [id number], with the majority of time spent i [...]
--- OUTSIDE RECORDS SUMMARY | ~2020-07-03 | XMS | Encounter Summary ---
Demographics + + + | Address | [address] [facility] | | | [place] [address] | + + + | Home Phone [...] [place] | | | | | [address] | | + + + + + Care Team Providers + +------+ + | Care Speech And Language Clinician Name | Role | Phone [...] | | | | | | [place] [address] | | | | | | [phone] | | | | | | | [...] | | | | | | [facility] | | | | [...] | | | | | | Laboratory, [place], | | | | | | [place], delivered | | | | | | [...] by | | | | | | kokbshnzBcr-Lbw-K: | | | | | | Increased [...] istryMHC-1: | | | | | | DrhugrbaPK22 stain | | | | | | [...] + + + + | [facility] | [address] | [place] [address] | | | PATHOLOGY | [address] | | | + + + + + documented in this encounter Visit Diagnoses Not on filedocumented in this encounter
--- OUTSIDE RECORDS SUMMARY | ~2020-07-03 | XMS | Encounter Summary ---
Demographics + + + | Address | [address] [facility] [facility] [address] [facility] | | | [place] [address] | + + + | Home Phone [...] [place] | | | | | [address] | | + + + + + Care Team Providers + +------+ + | Care Size Painter Name | Role | Phone | [...] | | | | | Procedures | INSTRUCTIONAL MANAGER [address] | [address] | | | | | [place] OFFICE | | [address] | | | | | CONSULTATION | [address] | [place], [place] | | | | | NEW/ESTAB | [place], | [address] Phone: | | | | | PATIENT 60 | [place] [address] | [phone] | | | | | MIN | Phone: | Fax: | | | | | | [phone] | [phone] | | | | | | Fax: | | | | | | | [phone] | | +--------+--------+ + + + + Encounter Details +--------+---------+ + + + | Date | Type | Department | Care Team | Description | +--------+---------+ + + + | 05/02/ | Office | [facility] | Frandy Teresa, | Spondylolisthesis of | | 2013 | Visit | NEUROSURGERY [address] | DO [address] | lumbar region | | | | [address] | [address] [place], [place] | (Primary Dx); Lumbar | | | | [place], [place] | [address] | stenosis; Lumbar | | | | [address] | | radicular pain; | | | | [phone] | | Lumbago | +--------+---------+ + + [...] [facility] [address] [place], [place] [address] FAX: NEUROSURGERY HISTORY AND PHYSICAL EXAMINATION CHIEF [...] Take 15 mg by mouth nightl y. [place]-3 Fatty Acids (FISH OIL CONCENTRATE) 1000 MG [...] Intrinsics 5 5 Ulnar Intrinsics 5 5 Cutter Grinder Operator Strength 5 5 Hip Flexion 5 [...] encounter Miscellaneous Notes Miscellaneous - ONBASE SCAN [facility] - 05/02/2014 12:00 AM PDT iscellaneous - ONBASE SCAN [facility] - 05/02/2014 12:00 AM PDTEle ctronically signed by [facility] at 05/08/2014 8:56 AM PDTdocumented [...]
--- OUTSIDE RECORDS SUMMARY | ~2020-07-03 | XMS | Encounter Summary ---
Demographics + + + | Address | [address] [facility] [facility] [address] [facility] | | | [place] [address] | + + + | Home Phone [...] [place] | | | | | [address] | | + + + + + Care Team Providers + +------+ + | Care Accounting System Expert Name | Role | Phone | + +------+ + PCP | Unavailable | + +------+ + Encounter Details +--------+ + + + + | Date | Type | Department | Care Team | Description | +--------+ + + + + | 08/21/ | Hospital | [facility] | | | | 1996 | Encounter | MED CTR LABORATORY | | | | | | [address] | | | | | | [place] | | | | | | [address] | | | | | | [phone] | | | +--------+ + + + [...]
--- OUTSIDE RECORDS SUMMARY | ~2020-07-03 | XMS | Encounter Summary ---
Demographics + + + | Address | [address] [facility] | | | [place] [address] | + + + | Home Phone [...] [place], [place] | | | | | [address] | | + + + + + Care Team Providers + +------+ + | Care Bike Mechanic Name | Role | Phone | + +------+ + PCP | Unavailable | + +------+ + Encounter Details +--------+ + + + + | Date | Type | Department | Care Team | Description | +--------+ + + + + | 06/23/ | Hospital | [facility] | | | | 1999 | Encounter | MED CTR GENERIC OP | | | | | | CONV DEPT [address] | | | | | | [place], | | | | | | [place] [address] | | | | | | [phone] | | | +--------+ + + + [...]
--- OUTSIDE RECORDS SUMMARY | ~2020-07-03 | XMS | Encounter Summary ---
Demographics + + + | Address | [address] [facility] [address] [facility] | | | [place] [address] | + + + | Home Phone [...] [place] | | | | | [address] | | + + + + + Care Team Providers + +------+ + | Care It Systems Manager Name | Role | Phone [...] + + | 08/13/ | Documentati | [facility] | Katharine Moncada, | Other (urgent | | 2019 | on | CARDIOLOGY [place] | Technologist | report) | | | | [address] | | | | | | [place] | | | | | | [address] | | | | | | [phone] | | | +--------+ + + + [...]
--- OUTSIDE RECORDS SUMMARY | ~2020-07-03 | XMS | Encounter Summary ---
Demographics + + + | Address | [address] [facility] [address] [facility] | | | [place] [address] | + + + | Home Phone [...] [place], [place] | | | | | [address] | | + + + + + Care Team Providers + +------+ + | Care Senior Credit Officer Name | Role | Phone | + +------+ + PCP | Unavailable | + +------+ + Encounter Details +--------+ + + + + | Date | Type | Department | Care Team | Description | +--------+ + + + + | 02/22/ | Hospital | [facility] | | | | 1996 - | Encounter | MED CTR GENERIC PSY | | | | | | CONV DEPT [address] | | | | 02/26/ | | [place], | | | | 1996 | | [place] [address] | | | | | | [phone] | | | +--------+ + + + [...]
--- OUTSIDE RECORDS SUMMARY | ~2020-07-03 | XMS | Encounter Summary ---
Demographics + + + | Address | [address] [facility] | | | [place] [address] | + + + | Home Phone [...] [place] | | | | | [address] | | + + + + + Care Team Providers + +------+ + | Care Warehouse Receiving Supervisor Name | Role | Phone [...] [facility] | [address] [place], [place] | | | | | [place], [place] | [id number] | | | | | [address] | | | | | | [phone] | | | +--------+--------+ + + + [...] to notify that p rescription refill for [place] has been authorized. Informed about MRI results per MD results. Also notified about new medication neurontin. Pt verbalized understanding and will notify o ur office if her numbness to bilat feet (upper and lower) doesn't improve. Pt requested refi ll rx of [place] to be mailed via certified mail to her [facility] address at [facility] signed by Megan Schreiber, RN [...] PSTPt called to requesting medication refill of [place]. Pt c/o l ower back and left [...]
--- OUTSIDE RECORDS SUMMARY | ~2020-07-03 | XMS | Encounter Summary ---
Demographics + + + | Address | [address] [facility] [address] [facility] | | | [place] [address] | + + + | Home Phone [...] [place] | | | | | [address] | | + + + + + Care Team Providers + +------+ + | Care Administrative Accountant Name | Role | Phone | [...] | | 2019 | on | CARDIOLOGY [place]ESSI | Technologist | report) | | | | [address] | | | | | | [place] | | | | | | [address] | | | | | | [phone] | | | +--------+ + + + [...]
--- OUTSIDE RECORDS SUMMARY | ~2020-07-03 | XMS | Encounter Summary ---
Demographics + + + | Address | [address] [facility] | | | [place] [address] | + + + | Home Phone [...] [place] | | | | | [address] | | + + + + + [...] + + | 06/27/ | Office | [facility] | Yecenia Richardson, | Hypertension, | | 2019 | Visit | CARDIOLOGY [place] | MD Nitin RODRIGUES | unspecified type | | | | [address] | [place], [place] | (Primary Dx); | | | | [place] [address] | [address] | Bradycardia | | | | [place] | | | | | | [address] | | | | | | [phone] | | | +--------+---------+ + + + [...] urgent basis. Had an appointment today in [facility]. She has been feeling dizzy [...] Take by mouth. Blood Glucose Monitoring Suppl (Physician Referral Network (PRN) VERIO FLEX SYSTEM) w/Device KIT by Does [...] mg by mouth Daily. Cholecalciferol (VITAMIN D-3) 70161 units CAPS Take 50,000 Units by mouth [...] tablet Take 10 mg by mouth nightly. [place]-3 Fatty Acids (FISH OIL CONCENTRATE) 1000 MG [...]
--- OUTSIDE RECORDS SUMMARY | ~2020-07-03 | XMS | Encounter Summary ---
Demographics + + + | Address | [address] [address] [facility] | | | [place] [address] | + + + | Home Phone [...] + | Araceli Sibely | ECON | [place] | | | | | [address] | | + + + + + Care Team Providers + +------+ + | Care Plasterer Foreman Name | Role | Phone | [...] | | | | | ECHO | [place], [place] | | | | | | Complete | [address] | | | | | | | Phone: | | | | | | | [phone] | | | | | | | Fax: | | | | | | | [phone] | | + +--------+ + + + + Reason for Visit + + + | Reason | Comments | + + + | Follow-up | 6 month | + + + Encounter Details +--------+---------+ + + + | Date | Type | Department | Care Team | Description | +--------+---------+ + + + | 04/03/ | Office | [facility] | Desiree Peterson DO | Left bundle branch | | 2020 | Visit | CARDIOLOGY [place] | [address] | block (Primary Dx); | | | | [address] | [place], [place] | Benign essential | | | | [address] | [address] | HTN; New onset left | | | | [place], [place] | | bundle branch block | | | | [address] | | (LBBB); Obesity, | | | | [phone] | | Class III, BMI | | [...] Peterson DO - 04/03/2020 10:20 AM PDT [facility] Cardiology Follow Up Note Reason for [...] rtake in exercise. She recently got a [employer] and has been walking him more regularly. 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 Blood Glucose Monitoring Suppl ([employer] Hometown MediaIO FLEX SYSTEM) w/Device KIT by Does not ap ply route. budesonide-formoterol (SYMBICORT) 160-4.5 MCG/ACT inhaler Inhale 2 puffs into the lungs 2 (two) times daily. Calcium Carbonate Antacid 1000 MG tablet Take 1,000 mg by mouth 3 (three) times daily. Cholecalciferol (VITAMIN D3) 98346 units CAPS Take by mouth once a [...] ALT 76, alkaline phosphatase 134. Labs: 10/20/2019:( [facility]) CBC: WBC 7.1, RBC 4.93, hemoglobin [...]
--- OUTSIDE RECORDS SUMMARY | ~2020-07-03 | XMS | Encounter Summary ---
Demographics + + + | Address | [address] [facility] | | | [place] [address] | + + + | Home Phone [...] [place] | | | | | [address] | | + + + + + Care Team Providers + +------+ + | Care Telecasting Engineer Name | Role | Phone | [...] + + | 02/05/ | Telephone | [facility] | Ashley Chávez | Other (Patient | | 2020 | | CARDIOLOGY [place] | Pollo, Hospice Liaison | ) | | | | [address] | | | | | | [place] | | | | | | [address] | | | | | | [phone] | | | +--------+ + + + [...] encounter Miscellaneous Notes Telephone Encounter - BrittDora, ASSISTANT PROFESSOR NURSE EDUCATION - 02/07/2020 3:12 PM PDTI called her [...] . elephone Enco irma - Ashley Chávez, Hospice Liaison - 02/06/2020 2:53 PM PDTPatient states that [...]
--- OUTSIDE RECORDS SUMMARY | ~2020-07-03 | XMS | Encounter Summary ---
Demographics + + + | Address | [address] [facility] | | | [place] [address] | + + + | Home Phone [...] [place] | | | | | [address] | | + + + + + Care Team Providers + +------+ + | Care Manager Investment Name | Role | Phone | + +------+ + PCP | Unavailable | + +------+ + Encounter Details +--------+ + + + + | Date | Type | Department | Care Team | Description | +--------+ + + + + | 01/06/ | Hospital | [facility] | | | | 1992 | Encounter | MED CTR LABORATORY | | | | | | [address] | | | | | | [place] | | | | | | [address] | | | | | | [phone] | | | +--------+ + + + [...]
--- OUTSIDE RECORDS SUMMARY | ~2020-07-03 | XMS | Encounter Summary ---
Demographics + + + | Address | [address] [facility] | | | [place] [address] | + + + | Home Phone [...] [place], [place] | | | | | [address] | | + + + + + Care Team Providers + +------+ + | Care Roustabout Name | Role | Phone | + +------+ + PCP | Unavailable | + +------+ + Encounter Details +--------+ + + + + | Date | Type | Department | Care Team | Description | +--------+ + + + + | 06/07/ | Hospital | [facility] | | | | 1991 - | Encounter | MED CTR GENERIC OP | | | | | | CONV DEPT [address] | | | | 10/07/ | | [place], | | | | 1991 | | [place] [address] | | | | | | [phone] | | | +--------+ + + + [...]
--- OUTSIDE RECORDS SUMMARY | ~2020-07-03 | XMS | Encounter Summary ---
Demographics + + + | Address | [address] [facility] [facility] [facility] | | | [place] [address] | + + + | Home Phone [...] [place] | | | | | [address] | | + + + + + [...] + + | 06/05/ | Telephone | [facility] | Dora De La Torre | Cardiology | | 2020 | | CARDIOLOGY [place] | [address] | Appointment | | | | [address] | [address] | | | | | [address] | [place] [address] | | | | | [place] | [phone] | | | | | [address] | | | | | | [phone] | | | +--------+ + + + [...] encounter Miscellaneous Notes Telephone Encounter - BrittDora, KIER DRIER - 06/05/2020 1:08 PM MELANIE Cindy called kristin garcia and notified my medical record coder that she had thrown up all over [...] 1 of the few prov iders in [place] currently. Dr. Richter is in agreement with this plan, and we also communicated it to Cindy, so she knows that Dr. Richter will continue to monitor her on twice weekly basis documented in this encounter Plan of Treatment Not on filedocumented as of this encounter Visit Diagnoses Not on filedocumented in this encounter"
--- OUTSIDE RECORDS SUMMARY | ~2020-07-03 | XMS | Encounter Summary ---
Demographics + + + | Address | [address] [facility] | | | [place] [address] | + + + | Home Phone [...] [place], [place] | | | | | [address] | | + + + + + Care Team Providers + +------+ + | Care Drafter Civil Name | Role | Phone | + +------+ + PCP | Unavailable | + +------+ + Encounter Details +--------+ + + + + | Date | Type | Department | Care Team | Description | +--------+ + + + + | 09/10/ | Hospital | [facility] | | | | 1992 | Encounter | MED CTR LABORATORY | | | | | | [address] | | | | | | [place] | | | | | | [address] | | | | | | [phone] | | | +--------+ + + + [...]
--- OUTSIDE RECORDS SUMMARY | ~2020-07-03 | XMS | Encounter Summary ---
Demographics + + + | Address | [address] [facility] [facility] | | | [place] [address] | + + + | Home Phone [...] [place] | | | | | [address] | | + + + + + Care Team Providers + +------+ + | Care Configuration Developer Name | Role | Phone | [...] | 05/02/ | Telephone | [facility] | Frandy Teresa, | Other | | 2013 | | NEUROSURGERY [address] | DO [address] | | | | | [address] | [address] [place], [place] | | | | | [place], [place] | [id number] | | | | | [address] | | | | | | [phone] | | | +--------+ + + + [...]
--- OUTSIDE RECORDS SUMMARY | ~2020-07-03 | XMS | Encounter Summary ---
Demographics + + + | Address | [address] [address] [facility] | | | [place] [address] | + + + | Home Phone [...] [place] | | | | | [address] | | + + + + + Care Team Providers + +------+ + | Care Or Director Name | Role | Phone | + +------+ + PCP | Unavailable | + +------+ + Encounter Details +--------+ + + + + | Date | Type | Department | Care Team | Description | +--------+ + + + + | 02/22/ | Hospital | [facility] | | | | 1996 | Encounter | MED CTR EMERGENCY | | | | | | CENTER [address] | | | | | | [place] | | | | | | [address] | | | | | | [phone] | | | +--------+ + + + [...]
--- OUTSIDE RECORDS SUMMARY | ~2020-07-03 | XMS | Encounter Summary ---
Demographics + + + | Address | [address] [facility] | | | [place] [address] | + + + | Home Phone [...] [place] | | | | | [address] | | + + + + + Care Team Providers + +------+ + | Care Electric Utility Lineworker Name | Role | Phone | + [...] + | 08/16/ | Documentati | [facility] | Katharine Moncada, | Other (urgent | | 2019 | on | CARDIOLOGY [place] | Technologist | report) | | | | [address] | | | | | | [place] | | | | | | [address] | | | | | | [phone] | | | +--------+ + + + [...]
--- OUTSIDE RECORDS SUMMARY | ~2020-07-03 | XMS | Encounter Summary ---
Demographics + + + | Address | [address] [facility] | | | [place] [address] | + + + | Home Phone [...] [place] | | | | | [address] | | + + + + + Care Team Providers + +------+ + | Care Saxophone Assembler Name | Role | Phone | [...] + + | 03/06/ | Office | [facility] | Deon Gonzales | ROGERS (obstructive | | 2012 | Visit | SLEEP DISORDER [address] | MD La[address] | sleep apnea) | | | | [address] [place] | [address] [place] | (Primary Dx); | | | | [place] [address] | [place] [address] | Sleepiness | | | | [phone] | [phone] | | | | | | | [...] differen t from the original. 03/06/13 1000 [address]eth Sleepiness Scale Sitting and reading 3 Watching [...] by mouth Daily., Disp: , Rfl: ; [place]-3 Fatty Acids (FISH OIL CONCENTRATE) 1000 MG [...] th is encounter Miscellaneous Notes Miscellaneous - [facility] - 03/06/2013 12:00 AM PDT iscellaneous - [facility] - 03/06/2013 12:00 AM PDTEle ctronically [...]
--- OUTSIDE RECORDS SUMMARY | ~2020-07-03 | XMS | Encounter Summary ---
Demographics + + + | Address | [address] [facility] [address] | | | [place] [address] | + + + | Home Phone [...] [place] | | | | | [address] | | + + + + + Care Team Providers + +------+ + | Care Technology Applications Consultant Name | Role | Phone | + +------+ + | Adriano Patirck MD | PCP | | + +------+ [...] + + | 08/28/ | Telephone | [facility] | Ashley Chávez | Other (Patient has | | 2018 | | CARDIOLOGY GENESIS Abad, Manager Of Sales | questions about | | | | [address] | | monitor. ) | | | | [place], [place] | | | | | | [address] | | | | | | [phone] | | | +--------+ + + + [...] Notes Telephone Encounter - Ashley Chávez, Manager Of Sales - 08/28/2019 8:32 AM Rory foster says [...] that if she chooses. Patient stated understanding. CLAYTONW:MINING SPECULATOR-AAMA. sandro umented in this encounter Plan of Treatment Not on filedocumented as of this encounter Visit Diagnoses Not on filedocumented in this encounter"
--- OUTSIDE RECORDS SUMMARY | ~2020-07-03 | XMS | Encounter Summary ---
Demographics + + + | Address | [address] [facility] [address] | | | [place] [address] | + + + | Home Phone [...] [place] | | | | | [address] | | + + + + + Care Team Providers + +------+ + | Care Fiberglass Boat Builder Name | Role | Phone | [...] | | | spondylolist | | [address] | | | | | hesis | | [place], | | | | | Spinal | | [place] [address] | | | | | stenosis, | | Phone: | | | | | lumbar | | [phone] | | | | | region, | | Fax: | | | | | without | | [phone] | | | | | neurogenic | [...] + + | 07/02/ | Hospital | [facility] | Frandy Teresa, | Degenerative disc | | 2013 - | Encounter | MED CTR SURGICAL | DO [address] | disease, lumbar | | | | [address] | [address] [place] | (Primary Dx); | | 07/05/ | | [place] [address] | [phone] | Diabetes mellitus | | 2013 | | [phone] | | ([facility]); Disturbance [...] Stable for discharge to SNF. DISPOSITION: SNF ([facility]) DISCHARGE MEDICATIONS Medications prior to admission that [...] Take 15 mg by mouth nightl y. [place]-3 Fatty Acids (FISH OIL CONCENTRATE) 1000 [...] + + + +---------+ + + | [place]-3 Fatty | Take 1,000 mg by | [...] PA-C - 07/04/2014 7:43 AM PDT [facility] PROGRESS NOTE Pt. Name/Age/: Cindy Arndt 58 y.o. 1955 Med. Record Number: [id number] Date of admission: 07/02/2014 Subjective: The patient [...] home medications. D/C plan: Home tomorrow with [facility]. D/c mari drain and riley cath today. 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 Patient Active Problem List Diagnosis LUMBAR [...] signed by: Chris Nicole, 07/04/2014 7:45 [facility] Chris Lynn PA-C - 07/03/2014 7:13 AM PDT . [facility] PROGRESS NOTE Pt. Name/Age/: Cindy Arndt 58 y.o. 1955 Med. Record Number: [id number] Date of admission: 07/02/2014 Subjective: The patient [...] Nicole, 07/03/2014 7:13 [facility] oTon perez, KRIS - 07/03/2014 6:50 [...] PDTFrandy Teresa DO - 07/02/2014 11:15 AM [address] [facility] [address] [place] [address] FAX: NEUROSURGERY HISTORY AND PHYSICAL EXAMINATION CHIEF [...] Take 15 mg by mouth nigh tly. [place]-3 Fatty Acids (FISH OIL CONCENTRATE) 1000 [...] no apparent deficits with short or senior living memory. CRANIAL NERVES: II: Acuity is intact. [...] Intrinsics 5 5 Ulnar Intrinsics 5 5 Costume Specialist Strength 5 5 Hip Flexion 5 [...] Procedure Notes [facility] SCAN [facility] - 07/12/2014 12:00 AM PDT 14 1:45 PM [facility] - 07/04/2014 12:00 AM PDT [facility] - 07/02/2014 12:00 AM PDT documented in this encounter Miscellaneous Notes Plan of Care - ONBASE SCAN [facility] 07/12/2014 12:00 AM PDT iscellaneous - [facility] 07/12/2014 12:00 AM PDTElec tronically signed by Mariah Schulte at 07/12/2014 1:45 PM PDTMiscellaneous - [facility] SCAN [facility] 07/12/2014 12:00 AM PDT i scellaneous - BRUCE SCAN [facility] - 07/12/2014 12:00 AM PDT lan of Care - Joe Louis RN - 07/05/2014 5:00 PM PDTProb honey: General Plan of Care (Adult, Obstetrics) Goal: Care Plan Shift Summary & Review . Outcome: Adequate for Discharge Date Met: 07/05/14 Pt [facility]d to [facility] per her request. Did not feel safe [...] TBD) Equipment Recommendations: tub bench;hand held shower head;accounting analyst;comfort height toilet ( pt. has all necessary [...] PCP: Natalee Andersen [facility] transferring to: [facility] Provider after transfer: PCP and Dr. Frandy Teresa CODE STATUS: [x] Attempt CPR [] Do not resuscitate If patient is pulseless and not breathing, RN/GATE WATCHMAN may pronounce . Advanced Directives included: [] [...] for this patient. Diet: [] As tolerated MARKETING REPORTING ANALYST may upgrade or downgrade diet as condition Indicates. [x] RN may downgrade diet as indicated. Type: [] Continue current diet of: Diet and Supplements Diet DIET CONSISTENT CARBOHYDRATE Number of Occurrences: -1 Days [] Other: Consistency/Precautions: [] Whole [] Thin Liquids [] Cut-up [] Butternut Thick [] Advanced Chopped [] Honey Thickened [] Chopped [] Advanced Ground [] 1:1 feedings [] Ground/Pureed [] Other: Tube Feedings: [] PEG [] GT [] JT [] NGT [] Formula type: (Aluminum Pool Installer may change/substitute if indicated). [] Continuous Rate: [...] & Management for: ____same as above [] MARKETING REPORTING ANALYST Evaluation &Management for: [] Other: Wound/Skin [...] Take 15 mg by mouth ni linda. [place]-3 Fatty Acids (FISH OIL CONCENTRATE) 1000 [...] Chris Nicole PA-C, certify that post hospital fpc care [...] tolerate progressive walking and doing stairs du [facility] stay due to multiple pain c/o. Attempted to see pt. 1145, however had just rec eived pain medication and requested PT return, SPL 9/10. At 1205 pt contacted PT for assist OOB due to left LE spasms and need for position change. Sitting at EOB on arrival, DUST OPERATOR pres ent. Pt. donned LSO brace, [...] of endurance. When patient is walking in [facility] with a regular FWW she has to stop frequently and states she feels very weak, like sh e may fall. Patient lives alone. Outpatient prescriptions are filled at [facility] in [facility]. Electronically signed by: Franca Narvaez RN 07/05/2014 10:43 lan of Adilene Layne Rivers - 07/05/2014 10:39 AM PDTFaxed referral to Gabriela Stout and Lidia Tran. [place] : [id number] and [place]: [id number] Electronically signed by: Layne Collado 07/05/2014 10:40 [...] TBD) Equipment Recommendations: tub bench;hand held shower head;accounting analyst;comfort height toilet ( pt. has all necessary equipment) Planned Interventions: ADL retraining;transfer training Patient Status/Goals Reflects last filed data of patient status; may be from multiple contributors. Grooming: Status: did not occur today Assist: Utilizes: STG: Status: New Goal:modified independent LTG: Status: Goal: UE Dressing: Status: SBA Assist: Utilizes: STG: Status: Goal: LTG: Status: Goal: LE Dressing: Status: SBA Utilizes: accounting analyst STG: Status: New Goal: modified independent LTG: [...] bed mobil ity. Pt has been using FLUE GAS ANALYST and pain pills during the night. Zofran was given for nausea. MARI drain with minimal drainage. Band aid on back in place. lan of Care - Sonla Segovia RRT - 07/04/2014 5:38 AM PDTProblem: [...] by herself in a small apartment in [place]. Patient states she has her apartment set [...] to come from [facility] [place]. She states the Said she might benefit [facility] upon discharge. She would like me to contact [facility] to giv e them a heads up. I called and spoke to Summer at [facility] , told her patients PCP i s [...] Pt. resting in bed on arrival, used FLUE GAS ANALYST x 2 during session. SPL /10. Pt. hoping to urinate jackhammer operator to straight cath. Sidelying to sit [...] TBD) Equipment Recommendations: tub bench;hand held shower head;accounting analyst;comfort height toilet ( pt. has all necessary [...] & Review . Outcome: Progressing Pt using FLUE GAS ANALYST and PO pain pills, c/o numbness [...] and on a continuous oximeter for her FLUE GAS ANALYST. She was unable to do her IS because o f the medications. She has the IS at bedside with a goal of 2400. She did not require additi onal respiratory care throughout the evening. p Note - Frandy Teresa, DO - 07/02/2014 2:25 PM PDTDATE: 07/02/2014 SURGEON: Frandy Teresa MD. NATIONAL PARK RANGER: ZANE Oh PREOPERATIVE DIAGNOSES 1. Spondylolisthesis, L5-S1. [...] x 26 mm Capstone PEEK cage from [employer] was chosen. It was filled with Infus [...] Note Cindy Arndt 58 y.o. female 1955 [id number] Proc. Date 07/02/2014 Preop Dx Spondylolisthesis L5-S1 Postop Dx same Procedure Procedure(s):MIS L5-S1 TRANSFORAMINAL LUMBAR INTERBODY FUSION Anesthesia General Surgeon Frandy Teresa DO Engine Test Cell Technician ZANE Oh EBL 100 mL Findings Findings [...] [address] | [place] | [phone] | | [facility] | | [address] | | | - LABORATORY | | | | + + + + + | [facility] | [address] | [place], [place] | | | [facility] | | [address] | | | - LABORATORY [...] + | [facility] | [address] | [place] | [phone] | | [facility] | | [address] | | | - LABORATORY | | | | + + + + + | [facility] | [address] | [place], [place] | | | [facility] | | [address] | | | - LABORATORY [...] [address] | [place] | [phone] | | [facility] | | [address] | | | - LABORATORY | | | | + + + + + | [facility] | [address] | [place] | | | [facility] | | [address] | | | - LABORATORY [...] + | [facility] | [address] | [place] | [phone] | | [facility] | | [address] | | | - LABORATORY | | | | + + + + + | [facility] | [address] | [place], [place] | | | [facility] | | [address], [facility] | | | - [...] [address] | [place] | [phone] | | [facility] | | [address] | | | - LABORATORY | | | | + + + + + | [facility] | [address] | [place] | | | [facility] | | [address], [facility] | | | - [...] | | POC | | | [facility] | | | | | | MEDICAL [...] + | [facility] | [address] | [place] | [phone] | | [facility] | | [address] | | | - LABORATORY | | | | + + + + + | [facility] | [address] | [place], [place] | | | [facility] | | [address], [facility] | | | - [...] + | [facility] | [address] | [place], [place] | [phone] | | [facility] | | [address] | | | - LABORATORY | | | | + + + + + | [facility] | [address] | [place] | | | [facility] | | [address] | | | - LABORATORY [...] | | | POC | | | [facility] | | | | [...] + | [facility] | [address] | [place] | [phone] | | [facility] | | [address] | | | - LABORATORY | | | | + + + + + | [facility] | [address] | [place] | | | [facility] | | [address], [facility] | | | - [...] + | [facility] | [address] | [place], [place] | [phone] | | [facility] | | [address] | | | - LABORATORY | | | | + + + + + | [facility] | [address] | [place], [place] | | | [facility] | | [id number] [place] [address] | | | - LABORATORY | | [...] | of hardware for posterior fusion from [id number] S1 with interbody hardware at L5-S1. The [...] + | MISCELLANEOUS LAB | | | [phone] | + +---------+ + + | MISCELANIOUS LAB | | | [phone] | + +---------+ + + POC Glucose [...] [address] | [place] | [phone] | | [facility] | | [address] | | | - LABORATORY | | | | + + + + + | [facility] | [address] | [place], [place] | | | [facility] | | [address], [facility] | | | - [...] + | [facility] | [address] | [place] | [phone] | | [facility] | | [address] | | | - LABORATORY | | | | + + + + + | [facility] | [address] | [place] | | | [facility] | | [address] | | | - LABORATORY [...] [address] | [place] | [phone] | | [facility] | | [address] | | | - LABORATORY | | | | + + + + + | [facility] | [address] | [place] | | | [facility] | | [address] | | | - LABORATORY [...] + | [facility] | [address] | [place] | [phone] | | [facility] | | [address] | | | - LABORATORY | | | | + + + + + | [facility] | [address] | [place], [place] | | | [facility] | | [address] | | | - [...] [address] | [place] | [phone] | | [facility] | | [address] | | | - LABORATORY | | | | + + + + + | [facility] | [address] | [place] | | | [facility] | | [address], [facility] | | | - [...] | [facility] | | [address] | | | - BLOOD BANK | [...] + +---------+ +---+---+---+ | morphine 5 mg/mL FLUE GAS ANALYST syringe | New Bag | 07/02/20 | [...] | | | | Dose(mg): 0, Starting FLUE GAS ANALYST | | | | | | | Dose(mg): 1, Incremental Increase | | | | | | | FLUE GAS ANALYST Dose(mg): 0.5, Maximum FLUE GAS ANALYST | | | | | | | [...]
--- OUTSIDE RECORDS SUMMARY | ~2020-07-03 | XMS | Encounter Summary ---
Demographics + + + | Address | [address] [facility] [address] | | | [place] [address] | + + + | Home Phone [...] [place] | | | | | [address] | | + + + + + Care Team Providers + +------+ + | Care Tub Operator Name | Role | Phone | [...] | | Required | | branch | MANUFACTURING AUTOMATION ENGINEER [address] | 19 | | | | | block | [place] | [facility] | | | | | Paroxysmal | [address] | [address]RI [address] | | | | | A-fib ([facility]) | [place], [place] | [address] | | | | | | [address] | [place], [place] | | | | | Schizoaffect | Phone: | [phone] Phone: | | | | | chris | [phone] | [phone] | | | | | disorder, | Fax: | Fax: | | | | | bipolar type | [phone] | [phone] | | | | | (HCC) | [...] + + | 04/24/ | Office | [facility] | Dora De La Torre | Left bundle branch | | 2020 | Visit | CARDIOLOGY [place] | CAROLINE Mendez [address] | block (Primary Dx); | | | | [address] | [address] | Paroxysmal A-fib | | | | [address] | [place] [address] | ([facility]); Mild | | | | [place], [place] | [phone] | hyperlipidemia; | | | | [address] | | Benign essential | | | | [phone] | | HTN; Poorly | | | | | | controlled type 2 | | | | | | diabetes mellitus | | | | | | ([facility]); Syncope, | | | | | [...] | | | | | | type ([facility]); Rapid | | | | | [...] have referred you to Dr. Osuna at [facility] , call [phone] for an appo intment next week as [...] patient of , who is her primary sealant mixer, and last seen by her on 08/2020. [...] also resol shelly with weight loss Her [id number] VASC score is 4 (stroke, HTN, gender) [...] She has previously seen Dr. Garland in [place], and different sleep provider in [facility] when lived over there. She [...] After her syncopal episode she had notified [facility] cardiology, and Dr. Marquez, who was [...] PCP, or get a referral to an manager flight operations to get her blood sugars better controlled, [...] thirst or hunger. Psychiatric/Behavioral: Bipolar/Schizophrenia. Tx'd by [employer] Vaccines: Current on flu vaccine: 2019 Current on pneumonia vaccine:PPSV 23 05/29/2013 Habits/Social : Denies history of smoking. Denies EtOH use. Denies recreational or illici t drug use. Exercises sporadically. Lives in [place] . Outpatient Medications Prior to Visit Medication Sig Dispense Refill albuterol 90 mcg/puff inhaler Inhale 2 puffs into the lungs every 4 (four) hours as nee ded for Wheezing. amitriptyline (ELAVIL) 150 MG tablet Take 150 mg by mouth nightly . ARIPiprazole (ABILIFY) 10 mg tablet Take 10 mg by mouth nightly. Blood Glucose Monitoring Suppl (Scayl VERIO FLEX SYSTEM) w/Device KIT by Does [...] discomfort, [facility] Resting EKG normal sinus rhythm, arrhythmias [...] nonspecific ST-T wave abnormality rate 82 bpm, DC 176 ms, QRS 80 ms, QTC 446 ms tracing personally reviewed by EK12/17/2019: Sinus tachycardia, nonspecific ST wave abnormalities, rate 105 bpm, DC 196 ms, QRS 74 ms, QTC 430 ms, tracing personally reviewed by me, and compared to EKG performed in February 2019, rate is less well-controlled EK01/10/2020 (metoprolol XL 50 mg twice daily. Normal sinus rhythm, new left bundle bran ch block Rate 74 bpm, DC 204 ms, QRS 138 ms, QTC 488 [...] bundle branch block. Ra te 105 bpm, DC 184 ms, QRS 144 ms, QTC 489 ms, tracing personally reviewed by me, and compar ed to EKG performed in December , rate is less well-controlled LABS Labs: 12/26/2018: ( [facility])CMP: Sodium 139, potassium 4.2, chloride 99, BUN 10, creatinine 0. 7, BNP 28. CBC: WBC 7.8, hemoglobin 14.3, hematocrit 42.7, platelets 214 Labs: 09/28/2019:( [facility]) CBC: WBC 7.8, hemoglobin 14.9, hematocrit 43.8, platelets 221. C MP: Sodium 132, potassium 4.2, chloride 95, AST 76, ALT 76, alk phos 134 Labs: 10/11/2019:( [facility]) CBC: WBC 6.7, RBC 4.97, hemoglobin 15.2, hematocrit 44.7, platel ets 200. CMP: Glucose 385, BUN 7, creatinine 0.62, GFR 97, sodium 131, potassium 4.1, chlor kelby 95, albumin 4.3, total bilirubin 0.6, AST 75, ALT 73, alk phos 144. Thyroid: TSH 4.27 Labs: 10/12/2020:( [facility]) CBC: WBC 7, RBC 4.93, hemoglobin 14.7, hematocrit 44.1, platele ts 186 normal UA CMP: Glucose 381, BUN 6, creatinine 0.63, GFR 95, sodium 133, potassium 3.8 , chloride 97, albumin 4.3, total bili 0.6, AST 62, ALT 75, alk phos 145 thyroid: TSH 3.07 Labs: 10/20/2019:( [facility]) CBC: WBC 7.1, RBC 4.93, hemoglobin 15.1, hematocrit 45.2, platel ets 204. CMP: Glucose 540, BUN 8, creatinine 0.81, GFR 71, sodium 131, potassium 4.1, chlor kelby 95, albumin 4.2, total bili 0.5, AST 54, ALT 63, alk phos 123, negative screen for all d rugs except tricyclics. Thyroid: TSH 3.39. Labs: 04/20/2020: ([facility]). CMP: Sodium 130, potassium 4.1, chloride [...] admission and overnight teleme try stay at [facility] for syncopal episode with extremely elevated [...] report. I have referred her to the [facility] sleep disorders clinic for further evaluation and bernadine atment Her event monitor will be placed on May 29, and she assured me that she would wear it for the full 2 weeks, and I will follow-up with her about the results on June 26. Addendum: Cindy called today and notified my paramedical aide that she had thrown up al l [...] 1 of the few prov iders in [place] currently 1. Left bundle branch block 2. [...] continuity of care purp ose [place] [facility] 04/25/2020 Laurie vivar in this [...] Expires: | | | | | A-fib ([facility]) | 04/24/2021 | | | | [...] | | | | | | A-fib ([facility]) | | | | | | Schizoaffective | | | | | | disorder, bipolar | | | | | | type ([facility]) Rapid | | | | | [...]
--- OUTSIDE RECORDS SUMMARY | ~2020-07-03 | XMS | Encounter Summary ---
Demographics + + + | Address | [address] [facility] [address] | | | [place] [address] | + + + | Home Phone [...] [place], [place] | | | | | [address] | | + + + + + Care Team Providers + +------+ + | Care Counselor/Art Therapist Name | Role | Phone | [...] [place] | | | | | | [address] | | | | | | [phone] | | | +--------+ + + + [...]
--- OUTSIDE RECORDS SUMMARY | ~2020-07-03 | XMS | Encounter Summary ---
Demographics + + + | Address | [address] [facility] [address] | | | [place] [address] | + + + | Home Phone [...] [place], [place] | | | | | [address] | | + + + + + Care Team Providers + +------+ + | Care Room Attendants Name | Role | Phone | + +------+ + PCP | Unavailable | + +------+ + Encounter Details +--------+ + + + + | Date | Type | Department | Care Team | Description | +--------+ + + + + | 06/19/ | Hospital | [facility] | | | | 1991 - | Encounter | MED CTR GENERIC PSY | | | | | | CONV DEPT [address] | | | | 06/24/ | | [place], | | | | 1991 | | [place] [address] | | | | | | [phone] | | | +--------+ + + + [...]
--- OUTSIDE RECORDS SUMMARY | ~2020-07-03 | XMS | Encounter Summary ---
Demographics + + + | Address | [address] [facility] [address] [facility] [address] | | | [place] [address] | + + + | Home Phone [...] [place] | | | | | [address] | | + + + + + Care Team Providers + +------+ + | Care Water Quality Technician Name | Role | Phone | [...] | Frandy Simons DO | [address] | | | | | of skin | [address] | [place], | | | | | sensation | [address] | [place] | | | | | Arthrodesis | [place], [place] | [address] | | | | | status Left | [address] | Phone: | | | | | leg | Phone: | [phone] | | | | | weakness | [phone] | Fax: | | | | | Procedures | Fax: | [phone] | | | | | MRI Lumbar | [phone] | | | | | | Spine [...] | Frandy A, DO | [address] | | | | | of skin | [address] | [place], | | | | | sensation | [address] | [place] | | | | | Arthrodesis | [place] | [address] | | | | | status Left | [address] | Phone: | | | | | leg | Phone: | [phone] | | | | | weakness | [phone] | Fax: | | | | | Procedures | Fax: | [phone] | | | | | MRI Lumbar | [phone] | | | | | | Spine wo | | | | | | | Contrast | | | +--------+--------+ + + + + Encounter Details +--------+ + + + + | Date | Type | Department | Care Team | Description | +--------+ + + + + | 08/19/ | Hospital | [facility] | Frandy Teresa, | Status post lumbar | | 2013 | Encounter | MED CTR MRI [address] | DO [address] | spinal fusion; Left | | | | [place], | [address] [place] | leg numbness; Left | | | | [place] [address] | [address] | leg weakness | | | | [phone] | | | +--------+ + + + [...] + + + +---------+ + + | Belford-3 Fatty | Take 1,000 mg by | [...] of this encounter Miscellaneous Notes Miscellaneous - [facility] - 09/06/2014 12:00 AM PST documented in [...] the round structure with high T1 and [id number] in the right L3 vertebral | | [...] + | MISCELLANEOUS LAB | | | [phone] | + +---------+ + + | MISCELANIOUS LAB | | | [phone] | + +---------+ + + documented in [...]
--- OUTSIDE RECORDS SUMMARY | ~2020-07-03 | XMS | Encounter Summary ---
Demographics + + + | Address | [address] [facility] [address] | | | [place] [address] | + + + | Home Phone [...] [place] | | | | | [address] | | + + + + + Care Team Providers + +------+ + | Care Manager Relocation Name | Role | Phone | + +------+ + | Hari Samson DO | PCP | | + +------+ + Encounter Details +--------+ + + + + | Date | Type | Department | Care Team | Description | +--------+ + + + + | 06/12/ | Hospital | [facility] | Frandy Teresa, | No Show | | 2014 | Encounter | MED CTR | DO [address] | | | | | ELECTRODIAGNOSTICS | [address] [place], [place] | | | | | [address] [place] | [address] | | | | | [place] [address] | | | | | | [phone] | | | +--------+ + + + [...]
--- OUTSIDE RECORDS SUMMARY | ~2020-07-03 | XMS | Encounter Summary ---
Demographics + + + | Address | [address] [facility] | | | [place] [address] | + + + | Home Phone [...] [place] | | | | | [address] | | + + + + + Care Team Providers + +------+ + | Care Belt Glass Sander Name | Role | Phone | [...] | | | | | [address] | [place], [place] | | | | | [place], [place] | [address] | | | | | [address] | | | | | | [phone] | | | +--------+ + + + [...] EVALUATION Cindy Arndt 58 y.o. female 1955 [id number] Scheduled procedure LAMINECTOMY PLIF/TLIF INSTRUMENTATION [1842] - L5-S1 TLIF Medical history, anesthesia, medications, allergy histories reviewed. ECG reviewed. Labs reviewed. ROS / Med History Ane (+) PONV. (-) difficult intubation, malignant hyperthermia . NPO status verified. CV (+) hypertension.(-) past NC. (+) Dysrhythmias (h/o PVCs) Exercise tolerance >4 [...]
--- OUTSIDE RECORDS SUMMARY | ~2020-07-03 | XMS | Encounter Summary ---
Demographics + + + | Address | [address] [facility] [address] | | | [place] [address] | + + + | Home Phone [...] [place] | | | | | [address] | | + + + + + Care Team Providers + +------+ + | Care Critical Care Rn Name | Role | Phone | + +------+ + | Natalee Andersen NP | PCP | | + +------+ + Encounter Details +--------+ + + + + | Date | Type | Department | Care Team | Description | +--------+ + + + + | 05/02/ | Hospital | [facility] | Frandy Teresa, | Back pain | | 2013 | Encounter | MED CTR XRAY [address] | DO [address] | | | | | [place] | [place] [address] [place], [place] | | | | | [place] [address] | [address] | | | | | [phone] | | | +--------+ + + + [...] + + + +---------+ + + | Paradox-3 Fatty | Take 1,000 mg by | [...] + | MISCELLANEOUS LAB | | | [phone] | + +---------+ + + | MISCELANIOUS LAB | | | [phone] | + +---------+ + + documented in this encounter Visit Diagnoses + + | Diagnosis | + + | Back pain Backache, unspecified | + + documented in this encounter"
--- OUTSIDE RECORDS SUMMARY | ~2020-07-03 | XMS | Encounter Summary ---
Demographics + + + | Address | [address] [facility] | | | [place] [address] | + + + | Home Phone [...] [place] | | | | | [address] | | + + + + + Care Team Providers + +------+ + | Care Exercise Teacher Name | Role | Phone | [...] [place] | | | | | | [address] | | | | | | [phone] | | | +--------+ + + + [...]
--- OUTSIDE RECORDS SUMMARY | ~2020-07-03 | XMS | Encounter Summary ---
Demographics + + + | Address | [address] [facility] | | | [place] [address] | + + + | Home Phone [...] [place] | | | | | [address] | | + + + + + Care Team Providers + +------+ + | Care Agricultural Produce Washer Name | Role | Phone | [...] + | 11/25/ | Telephone | [facility] | Frandy Teresa, | Medication Refill | | 2014 | | NEUROSURGERY [address] | DO [address] | Assistance | | | | [facility] | [place] [address] [place], [place] | | | | | [place], [place] | [id number] | | | | | [address] | | | | | | [phone] | | | +--------+ + + + [...] get a refill of her pain medication Alvarado 10-325 mg. I l et her know we are beyond the 90 days after her surgery and refills need to come from her [facility] care provider. She requests us to update her PCP. documented in t his encounter Plan of Treatment Not on filedocumented as of this encounter Visit Diagnoses Not on filedocumented in this encounter"
--- OUTSIDE RECORDS SUMMARY | ~2020-07-03 | XMS | Encounter Summary ---
Demographics + + + | Address | [address] [facility] | | | [place] [address] | + + + | Home Phone [...] [place] | | | | | [address] | | + + + + + Care Team Providers + +------+ + | Care Emergency Department Rn Name | Role | Phone | + +------+ + PCP | Unavailable | + +------+ + Encounter Details +--------+ + + + + | Date | Type | Department | Care Team | Description | +--------+ + + + + | 01/26/ | Hospital | [facility] | [place], | | | 2011 | Encounter | MED CTR XRAY [address] | MD [address] | | | | | [place] | [place] | | | | | [place] [address] | [address] | | | | | [phone] | | | +--------+ + + + [...] | [facility] | [place] | | [address] [facility] | [facility] | | BILATERAL KNEES, THREE VIEWS: [...] Transcribed | | | Date/Time: 01/27/2012 17:18 Territory Sales Manager Medical: REBECCA | | | <Electronically Signed by Willie Perry MD> 01/27/12 0074 | | + + + + + | Procedure Note | + + | Juan, Rad Conversion - 11/30/2013 5:03 PM [facility] | | Diagnostic Imaging Department [address] [place] [address] | | BILATERAL KNEES, THREE VIEWS: 01/27/2012 [...] 17:12 | |Transcribed Date/Time: 01/27/2012 17:18 | |Territory Sales Manager Medical: | |<Electronically Signed by Willie Perry MD> [...]
--- OUTSIDE RECORDS SUMMARY | ~2020-07-03 | XMS | Encounter Summary ---
Demographics + + + | Address | [address] [facility] [address] | | | [place] [address] | + + + | Home Phone [...] [place] | | | | | [address] | | + + + + + Care Team Providers + +------+ + | Care Crossing Gateman Name | Role | Phone | + [...] + + | 05/01/ | Telephone | [facility] | Dora De La Torre | Medication Question | | 2020 | | CARDIOLOGY [place] | CAROLINE Mendez [address] | | | | | [address] | [address] | | | | | [address] | [place] [address] | | | | | [place] | [phone] | | | | | [address] | | | | | | [phone] | | | +--------+ + + + [...]
--- OUTSIDE RECORDS SUMMARY | ~2020-07-03 | XMS | Encounter Summary ---
Demographics + + + | Address | [address] [facility] | | | [place] [address] | + + + | Home Phone [...] [place], [place] | | | | | [address] | | + + + + + Care Team Providers + +------+ + | Care Managing Editor Name | Role | Phone | + +------+ + PCP | Unavailable | + +------+ + Encounter Details +--------+ + + + + | Date | Type | Department | Care Team | Description | +--------+ + + + + | 06/30/ | Hospital | [facility] | | | | 1999 - | Encounter | MED CTR GENERIC PSY | | | | | | CONV DEPT [address] | | | | 07/05/ | | [place], | | | | 1999 | | [place] [address] | | | | | | [phone] | | | +--------+ + + + [...]
--- OUTSIDE RECORDS SUMMARY | ~2020-07-03 | XMS | Encounter Summary ---
Demographics + + + | Address | [address] [facility] | | | [place] [address] | + + + | Home Phone [...] [place] | | | | | [address] | | + + + + + Care Team Providers + +------+ + | Care Marketing Intern Name | Role | Phone [...] + | 08/22/ | Documentati | [facility] | Katharine Moncada, | Other (urgent | | 2019 | on | CARDIOLOGY GENESIS | Technologist | report) | | | | [address] | | | | | | [place] | | | | | | [address] | | | | | | [phone] | | | +--------+ + + + [...]
--- OUTSIDE RECORDS SUMMARY | ~2020-07-03 | XMS | Encounter Summary ---
Demographics + + + | Address | [address] [facility] | | | [place] [address] | + + + | Home Phone [...] [place] | | | | | [address] | | + + + + + Care Team Providers + +------+ + | Care Torch Heater Name | Role | Phone | [...] + + | 03/26/ | Telephone | [facility] | Thierry Fry | Medication Prior | | 2014 | | MEDICINE [address] [place] [address] | MD Lisa [address] | Authorization | | | | [place], | [place] | (Dexilant 60Mg) | | | | [place] [address] | [address] | | | | | [phone] | | | +--------+ + + + [...] were not received I contacted insurance ID# [id number] This has been denied. The patient must try and fail 2 of the following Omeprazole Protonix Prevacid Nexium Please advise elepho ne Encounter - Saba Acosta Cert MA - 03/26/2015 1:32 PM PDTCalled and requested a prior authorization Requested for via fax from [employer] Prior auth medication Dexilant 60MgElectronically signed by Faustina Aquino MA at 03/26 1:52 PM PDTdocumented in this encounter Plan of Treatment Not on filedocumented as of this encounter Visit Diagnoses Not on filedocumented in this encounter"
--- OUTSIDE RECORDS SUMMARY | ~2020-07-03 | XMS | Encounter Summary ---
Demographics + + + | Address | [address] [facility] | | | [place] [address] | + + + | Home Phone [...] [place] | | | | | [address] | | + + + + + Care Team Providers + +------+ + | Care Member Of Parliament Name | Role | Phone | + [...] + + | 10/22/ | Telephone | [facility] | Susu Peralta, | Other | | 2019 | | CARDIOLOGY GENESIS Nath RN | | | | | [address] | | | | | | [facility] [place] [place] | | | | | | [address] | | | | | | [phone] | | | +--------+ + + + [...]
--- OUTSIDE RECORDS SUMMARY | ~2020-07-03 | XMS | Encounter Summary ---
Demographics + + + | Address | [address] [facility] | | | [place] [address] | + + + | Home Phone [...] [place] | | | | | [address] | | + + + + + [...] + + | 08/15/ | Documentati | [facility] | Katharine Moncada, | Other (urgent | | 2019 | on | CARDIOLOGY GENESIS | Technologist | report) | | | | [address] | | | | | | [place] | | | | | | [address] | | | | | | [phone] | | | +--------+ + + + [...]
--- OUTSIDE RECORDS SUMMARY | ~2020-07-03 | XMS | Encounter Summary ---
Demographics + + + | Address | [address] [facility] | | | [place] [address] | + + + | Home Phone [...] [place], [place] | | | | | [address] | | + + + + + Care Team Providers + +------+ + | Care Aircraft Armament Mechanic Name | Role | Phone | + +------+ + PCP | Unavailable | + +------+ + Encounter Details +--------+ + + + + | Date | Type | Department | Care Team | Description | +--------+ + + + + | 04/01/ | Hospital | [facility] | | | | 1998 | Encounter | MED CTR XRAY [address] | | | | | | [place] | | | | | | [place] [address] | | | | | | [phone] | | | +--------+ + + + [...]
--- OUTSIDE RECORDS SUMMARY | ~2020-07-03 | XMS | Encounter Summary ---
Demographics + + + | Address | [address] [facility] | | | [place] [address] | + + + | Home Phone [...] [place] | | | | | [address] | | + + + + + [...] [place] | | | | | | [address] | | | | | | [phone] | | | +--------+ + + + [...]
--- OUTSIDE RECORDS SUMMARY | ~2020-07-03 | XMS | Encounter Summary ---
Demographics + + + | Address | [address] [facility] | | | [place] [address] | + + + | Home Phone [...] [place] | | | | | [address] | | + + + + + Care Team Providers + +------+ + | Care Junk Removal Specialist Name | Role | Phone | [...] + + | 07/06/ | Emergency | [facility] | Yunior Sherman, | Chest pain, | | 2014 | | MED CTR EMERGENCY | [address] | unspecified chest | | | | CENTER [address] | [place], [place] | pain type (Primary | | | | [place], [place] | [address] | Dx) | | | | [address] | | | | | | [phone] | | | +--------+ + + + [...] sent through Care Everywhere.CHEST PAIN, NON CARDIAC (WOLOF)documented in this encounter Medications at Time of [...] 0 | | | | (VITAMIN D-3) 147[address] | mouth Once a week. | | [...] SEACOAST) | | | | | | + [...] + + + +---------+ + + | [place]-3 Fatty | Take 1,000 mg by | [...] Laterality: N/A; Surgeon: Frandy castellanos DO; Location: [facility] MAIN OR Cardiac catherization CURRENT MEDICATIONS [...] mg by mouth Daily. CHOLECALCIFEROL (VITAMIN D-3) 42979 UNITS CAPS Take 50,000 Units by mouth [...] pain. She was recently discharged from a [facility] facility. She's had more than [...] [address] | [place] | [phone] | | [facility] | | [address] | | | - LABORATORY | | [...] + | [facility] | [address] | [place] | [phone] | | [facility] | | [address] | | | - LABORATORY | | | | + + + + + Troponin I (07/06/2015 3:45 PM PDT) + + + + + + | Component | Value | Ref Range | Performed | Pathologist | | | | | At | Signature | + + + + + + | Troponin I | <0.01Comment: Reference | <0.06 ng/mL | [facility] | | | | Ranges:0.00-0.06 = | [...] | | | | | | [employer] | | | | | [...] ST. | [address] | [place], [place] | [phone] | | [facility] | | [address] | | | - LABORATORY | | [...] mL/min/1.73m2 | [facility] | | | [place] | RATE,ESTIMATED | | MEDICAL | | | | mL/min/1.50n7Pjph than | | CENTER - | | [...] [address] | [place] | [phone] | | [facility] | | [address] | | | - LABORATORY | | [...] + | [facility] | [address] | [place] | [phone] | | [facility] | | [address] | | | - LABORATORY | | [...] | | | | MD NAZARIO JON ([id number]) | | | | | | on [...]
--- OUTSIDE RECORDS SUMMARY | ~2020-07-03 | XMS | Encounter Summary ---
Demographics + + + | Address | [address] [facility] | | | [place] [address] | + + + | Home Phone [...] [place] | | | | | [address] | | + + + + + Care Team Providers + +------+ + | Care Tunnel Elastic Operator Zigzag Name | Role | Phone | + [...] | | | | | mellitus, | [address] | [place] | | | | | controlled | Phone: | [address] | | | | | (HCC) | [phone] | Phone: | | | | | History of | Fax: | [phone] | | | | | gastric | [phone] | Fax: | | | | | restrictive | | [phone] | | | | | surgery | [...] | hypertension | [address] | | | | | Lumbar | AVE [place] | [address] | | | | | radiculopath | [place], [place] | AVE | | | | | y Type 2 | [address] | [place] | | | | | diabetes | Phone: | [address] | | | | | mellitus, | [phone] | Phone: | | | | | controlled | Fax: | [phone] | | | | | (HCC) | [phone] | Fax: | | | | | Obesity, | | [phone] | | | | | Class III, [...] | | [facility] & Katharine BUCIO in [place]. 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 Ask [facility] if they think it might be helpful [...] Cont your meds as prescribed. F/U with [facility] as scheduled Neuropathy Continue gabapentin. May consider increase if pain is not controlled. May benefit from switching from Paxil to one of the SNRIs or TCAs for analgesic effects, ho manju, she is doing so well on her current regimen it may not be worth making any changes an d find alternate ways to deal with the pain. Would be worth discussing with [facility] Psych Back Pain Will refer to water therapy (aqua fitness) at [facility] as request ed. ROGERS [...] Cont your meds as prescribed. [facility] Neuropathy Continue gabapentin. May [...] the pain. Would be worth discussing with [facility] professional. Back Pain Will refer to water therapy (aqua fitness) at [facility] as request ed. Cont [...] plan. The above note was dictated using Xue[employer]i voice recognition software. It may have not been proofread in entirety. Minor errors in grammar may occur. CHIEF COMPLAINT Chief Complaint Patient presents with Establish Care Presents to establish care. Former patient of [facility] in [place]. Other Possible stroke January 2015. Is now seeing Dr. Newman, changed to Plavix 02-27-15 from [facility]. Diabetes NIDDM. Checks blood sugars almost [...] auditory, at 36. 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 She is now very well controlled on Saphris, Depakote, and Paxi l. She is followed by [facility] in [place]. She has DM2 that is well controlled [...] Laterality: N/A; Surgeon: Frandy castellanos DO; Location[facility] MAIN OR SOCIAL HISTORY History Social [...] mg by mouth Daily. Cholecalciferol (VITAMIN D-3) 23398 units CAPS Oral Take 50,000 Units by [...] Oral Take 10 mg by mouth nightly. Hosmer-3 Fatty Acids (FISH OIL CONCENTRATE) 1000 MG [...] | | MEDICAL | | | | mL/min/1.79g7Obre than | | CENTER - | | [...] + | [facility] | [address] | [place] | [phone] | | [facility] | | [address] | | | - LABORATORY | | [...] + + | Schizoaffective disorder, bipolar type ([facility]) Schizoaffective disorder, unspecified | | condition | [...]
--- OUTSIDE RECORDS SUMMARY | ~2020-07-03 | XMS | Encounter Summary ---
Demographics + + + | Address | [address] [facility] | | | [place] [address] | + + + | Home Phone [...] [place] | | | | | [address] | | + + + + + Care Team Providers + +------+ + | Care Batch Mixer Operator Name | Role | Phone [...] [id number] | | | | | | [place], [place] | | | | | | [address] | | | | | | [phone] | | | +--------+ + + + [...] + + | [facility] | [address] | [place] [address] | | | PATHOLOGY | [address] [...] Re | | | | | | [id number] | | | | + + + + + + + + | Specimen | + + | | + + + + + + + | Performing | Address | City/State/Zipcode | Phone Number | | Organization | | | | + + + + + | [facility] | [address] | [place] [address] | | | PATHOLOGY | [address] [...] Re | | | | | | [address] | | | | + + + + + + + + | Specimen | + + | | + + + + + + + | Performing | Address | City/State/Zipcode | Phone Number | | Organization | | | | + + + + + | [facility] | [address] | [place] [address] | | | PATHOLOGY | [address] [...] Re | | | | | | [id number] | | | | + + + + + + + + | Specimen | + + | | + + + + + + + | Performing | Address | City/State/Zipcode | Phone Number | | Organization | | | | + + + + + | [facility] | [address] | [place] [address] | | | PATHOLOGY | [address] [...] Re | | | | | | [address] | | | | + + + + + + + + | Specimen | + + | | + + + + + + + | Performing | Address | City/State/Zipcode | Phone Number | | Organization | | | | + + + + + | [facility] | [address] | [place] [address] | | | PATHOLOGY | [address] | | | + + + + + documented in this encounter Visit Diagnoses Not on filedocumented in this encounter"
--- OUTSIDE RECORDS SUMMARY | ~2020-07-03 | XMS | Encounter Summary ---
Demographics + + + | Address | [address] [facility] | | | [place] [address] | + + + | Home Phone [...] [place], [place] | | | | | [address] | | + + + + + Care Team Providers + +------+ + | Care Biological Technical Officer Name | Role | Phone | + +------+ + PCP | Unavailable | + +------+ + Encounter Details +--------+ + + + + | Date | Type | Department | Care Team | Description | +--------+ + + + + | 12/31/ | Hospital | [facility] | | | | 1996 | Encounter | MED CTR XRAY [address] | | | | | | [address] | | | | | | [place] [address] | | | | | | [phone] | | | +--------+ + + + [...]
--- OUTSIDE RECORDS SUMMARY | ~2020-07-03 | XMS | Encounter Summary ---
Demographics + + + | Address | [address] [facility] | | | [place] [address] | + + + | Home Phone [...] [place] | | | | | [address] | | + + + + + Care Team Providers + +------+ + | Care Director Of Acquisition Marketing Name | Role | Phone | [...] + | 06/20/ | Telephone | [facility] | Frandy Teresa, | Other (surgery | | 2013 | | NEUROSURGERY [address] | DO [address] | reminder ) | | | | [address] [facility] | [address] [place], [place] | | | | | [place], [place] | [id number] | | | | | [address] | | | | | | [phone] | | | +--------+ + + + [...]
--- OUTSIDE RECORDS SUMMARY | ~2020-07-03 | XMS | Encounter Summary ---
Demographics + + + | Address | [address] [facility] | | | [place] [address] | + + + | Home Phone [...] [place] | | | | | [address] | | + + + + + Care Team Providers + +------+ + | Care Wallpaper Hanger Name | Role | Phone | [...] | | [place], | [place] [address] | | | | | [place] [address] | [phone] | | | | | [phone] | | | +--------+--------+ + + + [...]
--- OUTSIDE RECORDS SUMMARY | ~2020-07-03 | XMS | Encounter Summary ---
Demographics + + + | Address | [address] [facility] | | | [place] [address] | + + + | Home Phone [...] [place] | | | | | [address] | | + + + + + Care Team Providers + +------+ + | Care Nursing Home Physician Name | Role | Phone | [...] | | | [address] | [place] [address] | | | | | [place], [place] | [phone] | | | | | [address] | | | | | | [phone] | | | +--------+ + + + [...] - 05/19/2020 10:42 AM PDTCalled [facility] with Dora Mendez as [...]
--- OUTSIDE RECORDS SUMMARY | ~2020-07-03 | XMS | Encounter Summary ---
Demographics + + + | Address | [address] [facility] | | | [place] [address] | + + + | Home Phone [...] [place] | | | | | [address] | | + + + + + Care Team Providers + +------+ + | Care Stapling Machine Operator Name | Role | Phone | + +------+ + PCP | Unavailable | + +------+ + Encounter Details +--------+ + + + + | Date | Type | Department | Care Team | Description | +--------+ + + + + | 09/24/ | Hospital | [facility] | | | | 1993 | Encounter | MED CTR LABORATORY | | | | | | [address] | | | | | | [place] | | | | | | [address] | | | | | | [phone] | | | +--------+ + + + [...]
--- OUTSIDE RECORDS SUMMARY | ~2020-07-03 | XMS | Encounter Summary ---
Demographics + + + | Address | [address] [facility] | | | [place] [address] | + + + | Home Phone [...] [place] | | | | | [address] | | + + + + + Care Team Providers + +------+ + | Care Financial Services Associate Name | Role | Phone [...] | 08/21/ | Documentati | [facility] | Katharine Moncada, | Other (urgent | | 2019 | on | CARDIOLOGY [place] | Technologist | report) | | | | [address] | | | | | | [place] | | | | | | [address] | | | | | | [phone] | | | +--------+ + + + [...]
--- OUTSIDE RECORDS SUMMARY | ~2020-07-03 | XMS | Encounter Summary ---
Demographics + + + | Address | [address] [facility] | | | [place] [address] | + + + | Home Phone [...] [place] | | | | | [address] | | + + + + + Care Team Providers + +------+ + | Care In Store Representative Name | Role | Phone | + +------+ + | Thierry Fry MD | PCP | | + +------+ + Encounter Details +--------+ + + + + | Date | Type | Department | Care Team | Description | +--------+ + + + + | 03/06/ | Hospital | [facility] | Katharine Cardona PA-C | Essential | | 2015 | Encounter | MED CTR LABORATORY | [address] | hypertension | | | | [address] [place] | [place] [address] | | | | | [place], [place] | [phone] | | | | | [address] | | | | | | [phone] | | | +--------+ + + + [...] 0 | | | | (VITAMIN D-3) [address] | mouth Once a week. | | [...] + + + +---------+ + + | [place]-3 Fatty | Take 1,000 mg by | 60 each | 5 | 03/09/20 | | | Acids (FISH OIL | mouth 2 times daily. | | | 15 | 9 | | CONCENTRATE) 1000 MG | | | | | | | CAPS | | | | | | + + + +---------+ + + | [place]-3 Fatty | Take 1,000 mg by | [...] | 0.66 | 0.60 - 1.30 | [facility] | | | | | mg/dL | [facility] | | | | | | [facility]ICAL | | | | | | CENTER - | | | | | | LABORATORY | | + + + + + + | eGFR, | >60Comment: GLOMERULAR | >=60 | [facility] | | | non- | FILTRATION | mL/min/1.73m2 | [facility] | | | Micronesian | RATE,ESTIMATED | | MEDICAL | | | | mL/min/1.28z4Seqc than | | CENTER - | | [...] ST. | [address] | [place], [place] | [phone] | | [facility] | | [address] | | | - LABORATORY | | | | + + + + + documented in this encounter Visit Diagnoses + + | Diagnosis | + + | Essential hypertension Unspecified essential hypertension | + + documented in this encounter"
--- OUTSIDE RECORDS SUMMARY | ~2020-07-03 | XMS | Encounter Summary ---
Demographics + + + | Address | [address] [facility] | | | [place] [address] | + + + | Home Phone [...] [place] | | | | | [address] | | + + + + + Care Team Providers + +------+ + | Care Residential Tech Name | Role | Phone | + +------+ + PCP | Unavailable | + +------+ + Encounter Details +--------+ + + + + | Date | Type | Department | Care Team | Description | +--------+ + + + + | 12/27/ | Hospital | [facility] | | | | 1997 | Encounter | MED CTR EMERGENCY | | | | | | CENTER [address] | | | | | | [place] | | | | | | [address] | | | | | | [phone] | | | +--------+ + + + [...]
--- OUTSIDE RECORDS SUMMARY | ~2020-07-03 | XMS | Encounter Summary ---
Demographics + + + | Address | [address] [facility] | | | [place] [address] | + + + | Home Phone [...] [place] | | | | | [address] | | + + + + + Care Team Providers + +------+ + | Care Mill Laborer Name | Role | Phone | + +------+ + PCP | Unavailable | + +------+ + Encounter Details +--------+ + + + + | Date | Type | Department | Care Team | Description | +--------+ + + + + | 04/27/ | Hospital | [facility] | Sage Garza MD | | | 2001 | Encounter | HOSPITAL EMERGENCY | | | | | | CENTER [address] | | | [address] [place], [place] | | | | | | [address] | | | | | | [phone] | | | +--------+ + + + [...]
--- OUTSIDE RECORDS SUMMARY | ~2020-07-03 | XMS | Encounter Summary ---
Demographics + + + | Address | [address] [facility] | | | [place] [address] | + + + | Home Phone [...] [place] | | | | | [address] | | + + + + + Care Team Providers + +------+ + | Care Family Resource Management Professor Name | Role | Phone | [...] + + | 08/14/ | Documentati | [facility] | Katharine Moncada, | Other (urgent | | 2019 | on | CARDIOLOGY GENESIS | Technologist | report) | | | | [address] | | | | | | [place] | | | | | | [address] | | | | | | [phone] | | | +--------+ + + + [...]
--- OUTSIDE RECORDS SUMMARY | ~2020-07-03 | XMS | Encounter Summary ---
Demographics + + + | Address | [address] [facility] | | | [place] [address] | + + + | Home Phone [...] [place] | | | | | [address] | | + + + + + Care Team Providers + +------+ + | Care Dolphin Researcher Name | Role | Phone | [...] | SLEEP DISORDER 401 | [address] | | | | | [place] | [place] | | | | | [place] [address] | [address] | | | | | [phone] | | | +--------+ + + + [...] PDTTjt was last seen in our o [facility] on 04/30/2015. He did not cancel or [...] PA-C eleph one Encounter - Gail Cadet, Glass Bender - 07/15/2016 8:37 AM PDTCalled to resched ule patient's no show appointment unable to contact all numbers are disconnected. Electronic ally signed by Leidy Wong at 07/15/2016 8:37 AM PDTdocumented in this encounter Plan of Treatment Not on filedocumented as of this encounter Visit Diagnoses Not on filedocumented in this encounter"
--- OUTSIDE RECORDS SUMMARY | ~2020-07-03 | XMS | Encounter Summary ---
Demographics + + + | Address | [address] [facility] | | | [place] [address] | + + + | Home Phone [...] [place] | | | | | [address] | | + + + + + Care Team Providers + +------+ + | Care Transportation Coordinator Name | Role | Phone | [...] [address] | | | | | [address], | [place], [place] | | | | | [place] [address] | [address] | | | | | [phone] | | | +--------+ + + + [...]
--- OUTSIDE RECORDS SUMMARY | ~2020-07-03 | XMS | Encounter Summary ---
Demographics + + + | Address | [address] [address] [facility] | | | [place] [address] | + + + | Home Phone [...] [place] | | | | | [address] | | + + + + + Care Team Providers + +------+ + | Care Telegraphic Typewriter Operator Name | Role | Phone | [...] + | 02/01/ | Telephone | [facility] | Frandy Teresa, | Imaging Only | | 2018 | | NEUROSURGERY [address] | DO [address] | | | | | [address] | [address] [place], [place] | | | | | [place], [place] | [id number] | | | | | [address] | | | | | | [phone] | | | +--------+ + + + [...]
--- OUTSIDE RECORDS SUMMARY | ~2020-07-03 | XMS | Encounter Summary ---
Demographics + + + | Address | [address] [facility] | | | [place] [address] | + + + | Home Phone [...] [place] | | | | | [address] | | + + + + + Care Team Providers + +------+ + | Care Community Coordinator For High School Name | Role | Phone | [...] + + | 08/14/ | Telephone | [facility] | Ashley Chávez | Other (Patient was | | 2018 | | CARDIOLOGY [place] Abad, Director Franchise Sales | anxious about urgent | | | | [address] | | reports. ) | | | | [place] | | | | | | [address] | | | | | | [phone] | | | +--------+ + + + [...] Notes Telephone Encounter - Ashley Chávez, Director Franchise Sales - 08/14/2019 9:16 AM Seferino foster called [...] for the time being. Patient stated understanding. BRODY:VETERINARY SURGEON-AAMA. [facility] umented in this encounter Plan of Treatment Not on filedocumented as of this encounter Visit Diagnoses Not on filedocumented in this encounter"
--- OUTSIDE RECORDS SUMMARY | ~2020-07-03 | XMS | Encounter Summary ---
Demographics + + + | Address | [address] [facility] | | | [place] [address] | + + + | Home Phone [...] [place], [place] | | | | | [address] | | + + + + + Care Team Providers + +------+ + | Care Poultry Dresser Name | Role | Phone | + +------+ + PCP | Unavailable | + +------+ + Encounter Details +--------+ + + + + | Date | Type | Department | Care Team | Description | +--------+ + + + + | 01/16/ | Hospital | [facility] | | | | 2002 | Encounter | MED CTR XRAY [address] | | | | | | [place] | | | | | | [place] [address] | | | | | | [phone] | | | +--------+ + + + [...]
--- OUTSIDE RECORDS SUMMARY | ~2020-07-03 | XMS | Encounter Summary ---
Demographics + + + | Address | [address] [facility] | | | [place] [address] | + + + | Home Phone [...] [place] | | | | | [address] | | + + + + + Care Team Providers + +------+ + | Care Answering Service Operator Name | Role | Phone | + +------+ + PCP | Unavailable | + +------+ + Encounter Details +--------+ + + + + | Date | Type | Department | Care Team | Description | +--------+ + + + + | 06/30/ | Hospital | [facility] | | | | 2000 | Encounter | MED CTR EMERGENCY | | | | | | CENTER [address] | | | | | | [place] | | | | | | [address] | | | | | | [phone] | | | +--------+ + + + [...]
--- OUTSIDE RECORDS SUMMARY | ~2020-07-03 | XMS | Encounter Summary ---
Demographics + + + | Address | [address] [facility] | | | [place] [address] | + + + | Home Phone [...] [place] | | | | | [address] | | + + + + + Care Team Providers + +------+ + | Care Sheep Clipper Name | Role | Phone | + [...] [place] | | | | | | [address] | | | | | | [phone] | | | +--------+ + + + [...]
--- OUTSIDE RECORDS SUMMARY | ~2020-07-03 | XMS | Encounter Summary ---
Demographics + + + | Address | [address] [facility] | | | [place] [address] | + + + | Home Phone [...] [place] | | | | | [address] | | + + + + + Care Team Providers + +------+ + | Care Musical Instrument Mechanic Name | Role | Phone | [...] [address] | | | | | [place], [place] | Shaheen Simons | | | | | [address] | [place] [address] | | | | | [phone] | [phone] | | | | | | | [...] GIVEN Testing | | | performed at [facility];[address] [place] [address];[place] [address] CULTURE | | | 50,000 TO 100,000 CFU/ML | | | MIXED GRAM POSITIVE HAIDER NO SUSCEPTIBILITY TO FOLLOW | | | MULTIPLE ORGANISM TYPES PRESENT, | | | SUGGESTIVE OF CONTAMINATION OR COLONIZATION. SUGGEST RECOLLECTION FOR | | | CULTURE. Testing | | | performed at [facility];[address] [place] [address];[place] [address] REPORT | | | STATUS 06/08/2012 FINAL [...]
--- OUTSIDE RECORDS SUMMARY | ~2020-07-03 | XMS | Encounter Summary ---
Demographics + + + | Address | [address] [facility] | | | [place] [address] | + + + | Home Phone [...] [place] | | | | | [address] | | + + + + + Care Team Providers + +------+ + | Care Train Attendant Name | Role | Phone | [...] + + | 05/29/ | Procedure | [facility] | Dora De La Torre | Left bundle branch | | 2020 | visit | CARDIOLOGY [place] | [address] | block; Paroxysmal | | | | [address] | [address] | A-fib ([facility]); | | | | [address] | [place] [address] | Syncope, unspecified | | | | [place], [place] | [phone] | syncope type; Rapid | | | | [address] | | palpitations | | | | [phone] | | | +--------+ + + + [...] information discussed. Instructions given and understood. 12:08pm [id number] signed by Cindy Nicholas CMA at 05/29/2020 [...]
--- OUTSIDE RECORDS SUMMARY | ~2020-07-03 | XMS | Encounter Summary ---
Demographics + + + | Address | [address] [facility] | | | [place] [address] | + + + | Home Phone [...] [place] | | | | | [address] | | + + + + + Care Team Providers + +------+ + | Care Learning And Development Officer Name | Role | Phone | [...] | | | | | [place] [address] | | | | | | [phone] | | | +--------+ + + + [...] stroke work up she had done at [facility] was quite thorough and she did not [...]
--- OUTSIDE RECORDS SUMMARY | ~2020-07-03 | XMS | Clinical Summary ---
Demographics + + + | Address | [address] [facility] | | | [place] [address] | + + + | Home Phone [...] [place] | | | | | [address] | | + + + + + Care Team Providers + +------+ + | Care Electric Distribution Checker Name | Role | Phone | [...] | | | | e | | (Seat 14A VERIO FLEX | | | | | [...] | | | | | | A-fib ([facility]); | | | | | | Syncope, [...] (Cancel | 2019 | | | Vanessa, MACHINING DEPARTMENT SUPERVISOR | appointment) | +--------+ + + + [...] A-fib | | | | | | ([facility]); Mild | | | | | | hyperlipidemia; | | | | | | Benign essential | | | | | | HTN; Poorly | | | | | | controlled type 2 | | | | | | diabetes mellitus | | | | | | ([facility]); Syncope, | | | | | [...] | | | | | | type ([facility]); Rapid | | | | | [...] | [employer] - | | 04/02/ | [id number] | | 5ccImplanted: Qty: 1 on | | Spine | MEDT | | 2019 | | | 07/02/2014 by Frandy Teresa | | Lumbar | | | | /[id number] | | DO Ronak at [facility] | | | | | | 6-020 | | [facility] | | | | | | / | + +------+--------+ +--------+--------+--------+ | Graft Infuse Bone Kit Xxs - | | N/A: | SOFAMOR | | 01/21/ | [id number] | | [id number]: Qty: 1 on | | Spine | DANEK - DIV | | 2014 | 0 / | | 07/02/2014 by Frandy Teresa | | Lumbar | [employer] | | | /[id number] | | A, DO at [facility] | | | - SFDK | | | 06AAH | | [facility] | | | | | | | + +------+--------+ +--------+--------+--------+ | Imp Spn Spcr Cpstn 8x26mm - | | N/A: | SOFAMOR | | 01/11/ | [id number] | | [id number]: Qty: 1 on | | Spine | DANEK - DIV | | 2021 | 6 / | | 07/02/2014 by Frandy Teresa | | Lumbar | [employer] | | | /[id number] | | A, DO at [facility] | | | - SFDK | | | 928 | | [facility] | | | | | | | + +------+--------+ +--------+--------+--------+ | Set Scrw Ns G5 Brk Off Ti | | N/A: | SOFAMOR | | | [id number] | | 4.75 - [id number]: | | Spine | DANEK - DIV | | | 0 / / | | Qty: 4 on 07/02/2014 by | | Lumbar | [employer] | | | | | Frandy Teresa DO at [facility] | | | - SFDK | | | | | [facility] | | | | | | | | [place] | | | | | | | + +------+--------+ +--------+--------+--------+ | RodImplanted: Qty: 1 on | | N/A: | | | | [id number] | | 07/02/2014 by Frandy Teresa | | Spine | | | | 540 / | | DO Ronak at [facility] | | Lumbar | | | | / | | [facility] | | | | | | | + +------+--------+ +--------+--------+--------+ | RodImplanted: Qty: 1 on | | N/A: | MEDTROL - | | | [id number] | | 07/02/2014 by Frandy Teresa | | Spine | MDTR | | | 545 / | | DO Ronak at [facility] | | Lumbar | | | | / | | [facility] | | | | | | | + +------+--------+ +--------+--------+--------+ | Screw 7.5x50mm Sextant - | | N/A: | [employer] - | | | [id number] | | [id number]: Qty: 1 on | | Spine | MEDT | | | [id number] | | 07/02/2014 by Frandy Teresa | | Lumbar | | | | / / | | DO Ronak at [facility] | | | | | | | | [facility] | | | | | | | + +------+--------+ +--------+--------+--------+ | Cannulated ScrewImplanted: | | N/A: | MEDTROL - | | | [id number] | | Qty: 1 on 07/02/2014 by | | Spine | MDTR | | | [id number] | | Frandy Teresa DO at [facility] | | Lumbar | | | | / / | | [facility] | | | | | | | | [facility]ENTER | | | | | | | + +------+--------+ +--------+--------+--------+ | Cannulated ScrewImplanted: | | N/A: | MEDTRONIC - | | | [id number] | | Qty: 1 on 07/02/2014 by | | Spine | MEDT | | | [id number] | | Frandy Teresa DO at [facility] | | Lumbar | | | | / / | | [facility] | | | | | | [...] | | | | | DESIREE DONNELLY (3760) on | | | | | | [...] +--------+ +---------+--------+ | MEDICARE | MEDICA | [id number] | 02/22/20 | [phone] | | Medica | | | RE | | 09-Pre | 5 | | re | | | PART A | | sent | | | | | | AND B | | | | | | + +--------+ +--------+ +---------+--------+ | MEDICARE | MEDICA | [id number] | 02/22/20 | [phone] | | Medica [...] [place] | | | 1 (Home) | [address] | + +--------+ +--------+ + + | Cindy Arndt | Person | Self | [birth year] | [address] | | | al/Fam | | 1955 | [phone] | [address] [place], [place] | | | [place] | | | 1 (Home) | [address] | + +--------+ +--------+ + + | Cindy Arndt | Person | Self [birth year] | [address] | | | al/Fam | | 1955 | [phone] | [address] [place], [place] | | | [place] | | | 1 (Home) | [address] | + +--------+ +--------+ + + Advance Directives + + + + + | Type | Date Recorded | Patient | Explanation | | | | Service Advisor | | + + + + + | Power of | | | | | Inside Sales Engineer | | | | + + + [...]
--- OUTSIDE RECORDS SUMMARY | ~2020-07-03 | XMS | Encounter Summary ---
Demographics + + + | Address | [address] [facility] | | | [place] [address] | + + + | Home Phone [...] [place] | | | | | [address] | | + + + + + Care Team Providers + +------+ + | Care Net Programmer Name | Role | Phone [...] [address] | | | | | [place] | [address] [place] | | | | | [place] [address] | [address] | | | | | [phone] | | | +--------+ + + + [...] [facility] Diagnostic Imaging Department | [place] | | [address] [facility] [address] | [facility] | | PROCEDURE: EPIDURAL STEROID [...] Transcribed Date/Time: | | | 02/03/2012 18:45 Bar Machine Operator Multiple Spindle: <Electronically Signed | | | by Serafin Bautista MD> 02/14/12 0916 | | + + + + + | Procedure Note | + + | Juan, Rad Conversion - 11/30/2013 5:[address] [facility] | | Diagnostic Imaging Department | | [address] [facility] [address] | | | | | | [...] | Transcribed Date/Time: 02/03/2012 18:45 | | Bar Machine Operator Multiple Spindle: MAHIN | | <Electronically Signed by Serafin [...]
--- OUTSIDE RECORDS SUMMARY | ~2020-07-03 | XMS | Encounter Summary ---
Demographics + + + | Address | [address] [facility] | | | [place] [address] | + + + | Home Phone [...] [place] | | | | | [address] | | + + + + + Care Team Providers + +------+ + | Care Director Digital Strategy Name | Role | Phone | [...] [place] | | | | | | [address] | | | | | | [phone] | | | +--------+ + + + [...]
--- OUTSIDE RECORDS SUMMARY | ~2020-07-03 | XMS | Encounter Summary ---
Demographics + + + | Address | [address] [facility] [facility] | | | [place] [address] | + + + | Home Phone [...] [place] | | | | | [address] | | + + + + + Care Team Providers + +------+ + | Care Printing Agent Name | Role | Phone | [...] + + | 08/09/ | Clinical | [facility] | Desiree Peterson DO | Syncope, unspecified | | 2019 | Support | CARDIOLOGY [place] | [address] | syncope type | | | | [address] | [place], [place] | | | | | [place] [address] | [address] | | | | | [place] | | | | | | [address] | Dora De La Torre | | | | | [phone] | [place] [address] | | | | | | [address] [place] [address] | | | | | | [place] [address] | | | | | | [phone] | | | | | | | [...]
[~2020-07-03 09:58] MED LIST changes: +DICLOFENAC SODI75 MG PO
--- OUTSIDE RECORDS SUMMARY | 2020-07-03 10:00 | XMS ---
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 Events No recent Security Events currently on file CRITERIA MET - 6 ED Visits in 6 Months - [facility] - Has Care Guidelines - PDMP - [facility] - 2 Visits in 30 Days CARE PROVIDERS WAYNE CAMARGO Internal Medicine 09/07/2019-Current PHONE: [phone] SMITH DOMINGUEZ Counselor: Mental Health 05/21/2020-Current PHONE: [phone] Kenny Palafox [facility] Current PHONE: [phone] ANGELICA MELVIN Internal Medicine: Pulmonary Disease 05/21/2020-Current PHONE: Unknown Jose Ag [facility] 01/31/2019-Current PHONE: [phone] Guidelines Source: [employer] [facility] [place] Guidelines Date: 03/13/2019 Care Coordination: Mental health services are being provided by [employer].\T\nbsp; Please contact [employer] with mental health concerns.\T\nbsp; [place]: \T\nbsp; [place]: [phone]. Care History Medical/Surgical 06/02/2020 [facility] [...] TO DR DOMINGUEZ IF NEEDED. DR DOMINGUEZ [phone] 05/26/2020 [facility] Patient stated that she was having chest discomfort and called [facility] and they told her to go to ED. Patient has a televisit with Dr. Dominguez on 05/27/2020 at 8:40 am. 05/21/2020 [facility] Patient\T\#39;s therapist, Ashley Lopez, RECRUITING INTERN at [employer] has been advised of her overuse of the ED and discussed with her. Also, she has put in a Referral to have a CHW at [employer] work with her .\T\nbsp; Patient was just seen by Walk In provider, Ashley Sharp, yesterday, 05/20/2020 for skin issue.\T\ nbsp; Next PCP visit on 05/29/2020. E.D. VISIT COUNT (12 MO.) 26 [facility]. TOTAL 26 NOTE: Visits indicate total known visits. 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 - [facility] (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 - Allergy status to sulfonamides status - [facility] (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 of 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 - [...] transient ischemic attack (TIA), and cere - salvage determiner (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 - Schizophrenia, unspecified - Type 2 diabetes mellitus with hyperglycemia - Other halfway (current) drug therapy - Gastro-esophageal reflux disease [...] Emergency COMPLAINT: - LIGHT HEADED DIAGNOSES: - [facility] (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 of 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 - Allergy status to sulfonamides status - Old myocardial infarction - Schizophrenia, unspecified - Type 2 diabetes mellitus with hyperglycemia - Shortness of breath - Allergy status to other drugs, medicaments and biological sub - Essential (primary) hypertension - Other halfway (current) drug therapy - [facility] (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 - Gastro-esophageal reflux disease without esophagitis 05/13/2020 19:47 [facility] [place] TYPE: Emergency COMPLAINT: - MEDICAL CLEARANCE DIAGNOSES: - Allergy status to other drugs, medicaments and biological sub - 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 - [facility] (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 of 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 - Encounter for other general examination - Essential (primary) hypertension - Gastro-esophageal reflux disease without esophagitis - salvage determiner (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 - Allergy status to sulfonamides status - Old myocardial infarction - Type 2 diabetes mellitus without complications 05/06/2020 06:05 [facility] [place] TYPE: Emergency COMPLAINT: - RAPID HEARTRATE DIAGNOSES: - Gastro-esophageal reflux disease without esophagitis - [facility] (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 of 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 - Allergy status to sulfonamides status - Essential (primary) hypertension - Allergy status to other drugs, medicaments and biological sub - Type 2 diabetes mellitus without complications - [facility] (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 - Palpitations - Old myocardial infarction - 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 05/03/2020 19:00 [facility] [place] TYPE: Emergency COMPLAINT: - RAPID HEART RATE DIAGNOSES: - Allergy status to other drugs, medicaments and biological sub - Allergy status to sulfonamides status - Old myocardial infarction - Gastro-esophageal reflux disease without esophagitis - Essential (primary) hypertension - salvage determiner (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 of 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 - Type 2 diabetes mellitus with hyperglycemia - salvage determiner (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 - Palpitations - Other halfway (current) drug therapy 04/28/2020 18:43 [facility] [place] TYPE: Emergency COMPLAINT: - MEDICAL CLEARANCE DIAGNOSES: - Gastro-esophageal reflux disease without esophagitis - Allergy status to other drugs, medicaments and biological sub - Essential (primary) hypertension - Allergy status to sulfonamides status - Type 2 diabetes mellitus without complications - Other halfway (current) drug therapy - Hallucinations, unspecified - [...] status to sulfonamides status - 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 - Abrasion, left knee, [...] 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 school 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 - Delusional disorders 10/22/2019 16:37 [facility] [place] TYPE: Emergency COMPLAINT: - MEDICAL CLEARANCE DIAGNOSES: - Type 2 diabetes mellitus without complications - Gastro-esophageal reflux disease without esophagitis - Old myocardial infarction - 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 - Essential (primary) hypertension - Allergy status to sulfonamides status - Allergy status to other drugs, medicaments and biological sub - Encounter for other general examination 10/20/2019 20:02 [facility] [place] TYPE: Emergency COMPLAINT: - MEDICAL CLEARANCE DIAGNOSES: - Gastro-esophageal reflux disease without esophagitis - Type 2 diabetes mellitus without complications - Encounter for other general examination - Other halfway (current) drug therapy - Old myocardial infarction [...] ischemic attack (TIA), and cere - Other halfway (current) drug therapy - Old myocardial infarction - Essential (primary) hypertension - Type 2 diabetes mellitus with hyperglycemia 10/11/2019 10:06 [facility] [place] TYPE: Emergency COMPLAINT: - MEDICAL CLEARANCE DIAGNOSES: - Essential (primary) hypertension - Delusional disorders - Old myocardial infarction - Delusional disorders - Allergy status to sulfonamides status - 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 - Schizoaffective disorder, unspecified 09/28/2019 13:19 [facility] [place] TYPE: Emergency COMPLAINT: - MEDICAL CLEARANCE DIAGNOSES: - Type 2 diabetes mellitus without complications - Allergy status to other drugs, medicaments and biological sub - Old myocardial infarction - Other halfway (current) drug therapy - Allergy status to sulfonamides status - Gastro-esophageal reflux disease without esophagitis - Essential (primary) hypertension - Suicidal ideations - Encounter for other administrative examinations 09/26/2019 10:06 [facility] [place] TYPE: Emergency COMPLAINT: - MEDICAL CLEARANCE DIAGNOSES: - 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 - Personal history of transient ischemic attack (TIA), and cere - Gastro-esophageal reflux disease without esophagitis - Allergy status to sulfonamides status - Old myocardial infarction - Schizoaffective disorder, unspecified - Allergy status to other drugs, medicaments and biological sub - Essential (primary) hypertension - salvage determiner (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 Plus 6 More Visits INPATIENT VISIT TRACKING [...] sub - Paroxysmal atrial fibrillation - Other halfway (current) drug therapy - Allergy status to sulfonamides status [email or web address]
[2020-07-03] MEDS ORDERED: CYCLOBENZAPRINE5 MG PO (10:28)
[2020-07-03] MEDS ORDERED: HYDROCODON-ACE1 EA10 PO (10:29)
== END 2020-07-03 10:44 | disposition home or self-care (01) ==
LOC: ED 09:58
DX: S32.10XD Unspecified fracture of sacrum, subsequent encounter for fracture with routine healing (principal); X58.XXXD Exposure to other specified factors, subsequent encounter

== ENCOUNTER 2020-07-03 18:27 | Emergency (ER) | payer MEDICARE ==
[~2020-07-03] VITALS: Ht 170.2 cm; Wt 90.7 kg
--- OUTSIDE RECORDS SUMMARY | ~2020-07-03 | XMS | Encounter Summary ---
Demographics + + + | Address | [address] [facility] [address] | | | [place] [address] | + + + | Home Phone | | + + + | Preferred Language | Unknown | + + + | Marital Status | | + + + | Anabaptist Affiliation | 1013 | + + + | Race | White | + + + | Ethnic Group | Not or | + + + Author + + + | Author | [facility] | | | and [place] | + + + | Organization | [facility] | | | and [place] | + + + | Address | Unknown | + + + | Phone | Unavailable | + + + Support + + + + + | Name | Relationship | Address | Phone | + + + + + | Araceli Sibley | ECON | [place] | | | | | [address] | | + + + + + Care Team Providers + +------+ + | Care Supervisory Historian Name | Role | Phone | + [...] | 08/05/ | Telephone | [facility] | Frandy Teresa, | Other | | 2013 | | NEUROSURGERY [address] | DO [address] | | | | | [address] | [address] [place], [place] | | | | | [place], [place] | [phone] | | | | | [address] | | | | | | [phone] | | | +--------+ + + + [...] mented in this encounter Plan of Treatment Not on filedocumented as of this encounter Visit Diagnoses Not on filedocumented in this encounter"
--- OUTSIDE RECORDS SUMMARY | ~2020-07-03 | XMS | Encounter Summary ---
Demographics + + + | Address | [address] [facility] | | | [place] [address] | + + + | Home Phone | | + + + | Preferred Language | Unknown | + + + | Marital Status | | + + + | Methodist Affiliation | 1013 | + + + | Race | White | + + + | Ethnic Group | Not or | + + + Author + + + | Author | [facility] | | | and [place] | + + + | Organization | [facility] | | | and [place] | + + + | Address | Unknown | + + + | Phone | Unavailable | + + + Support + + + + + | Name | Relationship | Address | Phone | + + + + + | Araceli Sibley | ECON | [place], [place] | | | | | [address] | | + + + + + Care Team Providers + +------+ + | Care Electric Arc Furnace Operator Name | Role | Phone | + +------+ + PCP | Unavailable | + +------+ + Encounter Details +--------+ + + + + | Date | Type | Department | Care Team | Description | +--------+ + + + + | 12/27/ | Hospital | [facility] | | | | 1997 - | Encounter | MED CTR GENERIC PSY | | | | | | CONV DEPT [address] | | | | 01/01/ | | [place] [address], | | | | 1997 | | [place] [address] | | | | | | [phone] | | | +--------+ + + + [...]
--- OUTSIDE RECORDS SUMMARY | ~2020-07-03 | XMS | Encounter Summary ---
Demographics + + + | Address | [address] [facility] [address] [address] | | | [place] [address] | + + + | Home Phone | | + + + | Preferred Language | Unknown | + + + | Marital Status | | + + + | Zoroastrian Affiliation | 1013 | + + + | Race | White | + + + | Ethnic Group | Not or | + + + Author + + + | Author | [facility] | | | and [place] | + + + | Organization | [facility] | | | and [place] | + + + | Address | Unknown | + + + | Phone | Unavailable | + + + Support + + + + + | Name | Relationship | Address | Phone | + + + + + | Araceli Sibley | ECON | [place] | | | | | [address] | | + + + + + Care Team Providers + +------+ + | Care Marzipan Maker Name | Role | Phone | + +------+ + | Adriano Patrick MD | PCP | | + +------+ + Reason for Visit +--------+--------+ + | Reason | Onset | Comments | | | Date | | +--------+--------+ + | Other | 06/28/ | Patient called to cancel her appointment | | | 2018 | | +--------+--------+ + Encounter Details +--------+ + + + + | Date | Type | Department | Care Team | Description | +--------+ + + + + | 06/28/ | Telephone | [facility] | Ashley Chávez | Talia (Patient | | 2018 | | CARDIOLOGY [facility]ES[facility] Abad, Deputy [address] | called to cancel her | | | | [address] | | appointment) | | | | [place] | | | | | | [address] | | | | | | [phone] | | | +--------+ + + + [...] Miscellaneous Notes Telephone Encounter - Ashley Chávez, Deputy K 9 - 06/28/2019 2:12 PM Seferino foster said that she already got the result for her ECHO, so she decided to cancel her FU with Dr Peterson. I asked patient if she wanted to reschedule for another time, and she said she wants to FU as needed. I went ahead and canceled her appointment. BRODY:[email or web address]. doc umented in this encounter Plan of Treatment Not on filedocumented as of this encounter Visit Diagnoses Not on filedocumented in this encounter"
--- OUTSIDE RECORDS SUMMARY | ~2020-07-03 | XMS | Encounter Summary ---
Demographics + + + | Address | [address] [facility] [address] | | | [place] [address] | + + + | Home Phone | | + + + | Preferred Language | Unknown | + + + | Marital Status | | + + + | Samaritan Affiliation | [id number] | + + + | Race | White | + + + | Ethnic Group | Not or | + + + Author + + + | Author | [facility] | | | and [place] | + + + | Organization | [facility] | | | and [place] | + + + | Address | Unknown | + + + | Phone | Unavailable | + + + Support + + + + + | Name | Relationship | Address | Phone | + + + + + | Araceli Sibley | ECON | [place] | | | | | [address] | | + + + + + Care Team Providers + +------+ + | Care Jacquard Loom Carpet Weaver Name | Role | Phone | + +------+ + | Hari Samson DO | PCP | | + +------+ + Reason for Referral Diagnostic/Screening (Urgent) + +--------+ + + + + | Status | Reason | Specialty | Diagnoses / | Referred By | Referred To | | | | | Procedures | Contact | Contact | + +--------+ + + + + | Authorized | | Diagnostic | Diagnoses | [facility] | [facility] | | | | Radiology | History of | [facility] | | | | | atrial | [employer]ER [address] | | | | | fibrillation | [place] [address] | [place] [address] | | | | | History of | [address] | [place], [place] | | | | | stroke | [place], [place] | [address] | | | | | Sinus | [address] | Phone: | | | | | tachycardia | Phone: | [phone] | | | | | by | [phone] | Fax: | | | | | electrocardi | Fax: | [phone] | | | | | ogram New | [phone] | | | | | | onset left | | | | | | | bundle | | | | | | | branch block | | | | | | | (LBBB) | | | | | | | Procedures | | | | | | | ECHO | | | | | | | Complete | | | + +--------+ + + + + Reason for Visit + + + | Reason | Comments | + + + | Follow-up, Office | 4 week | | Visit | | + + + Encounter Details +--------+---------+ + + + | Date | Type | Department | Care Team | Description | +--------+---------+ + + + | 01/09/ | Office | [facility] | Roxannmiguel ángelDora | History of atrial | | 2019 | Visit | CARDIOLOGY [place] | [address] | fibrillation | | | | [address] | [place]ETHAL[address]aphney [address]AF[address] F | (Primary Dx); Benign | | | | [address] | [place] [address] | essential HTN; | | | | [place], [place] | [phone] | History of | | | | [address] | | hypothyroidism; | | | | [phone] | | Stress | | | | | | hyperglycemia; | | | | | | History of stroke; | | | | | | Mild hyperlipidemia; | | | | | | Sinus tachycardia | | | | | | by | | | | | | electrocardiogram; | | | | | | New onset left | | | | | | bundle branch block | | | | | | (LBBB) | +--------+---------+ + + + Social History [...] + + + | Blood Pressure | 120/78 | 01/10/2020 10:28 AM | | | | | PDT | | + + + + + | Pulse | 74 | 01/10/2020 10:28 AM | | | | | PDT | | + + + + + | Temperature | 36.8 C (98.2 F) | 01/10/2020 10:28 AM | | | | | PDT | | + + + + + | Respiratory Rate | - | - | | + + + + + | Oxygen Saturation | 94% | 01/10/2020 10:28 AM | | | | | PDT | | + + + + + | Inhaled Oxygen | - | - | | | Concentration | | | | + + + + + | Weight | 123.1 kg (271 lb 4.8 | 01/10/2020 10:28 AM | | | | oz) | PDT | | + + + + + | Height | 170.2 cm (5' 7") | 01/10/2020 10:28 AM | | | | | PDT | | + + + + + | Body Mass Index | 42.49 | 01/10/2020 10:28 AM | | | | | PDT | | + + + + + documented in this encounter Patient Instructions Patient Instructions Dora De La Torre FNP - 01/10/2020 11:00 AM PDT I also ordered you an urgent Echo to be done at [facility] to follow up on new left bundle branch block I made no changes to medications See me back in 2-3 weeks documented in this encounter Progress Notes Dora De La Torre FNP - 01/10/2020 11:00 AM PDTFormatting of this note might be differe nt from the original. Date of visit: 01/10/2020 Primary Care Physician: Hari Samson DO CHIEF COMPLAINT: Chief Complaint Patient presents with Follow-up, Office Visit 4 week HISTORY OF PRESENT ILLNESS: Ms. Arndt is a 64 year old woman who is here today to follow up on response to increa sed dose of metoprolol XL for ongoing tachycardia,and palpitations. She is a patient of , and last seen by her on 10/04/2019 . Today, I reviewed all previous documentation available to me in electronic medical mark rds and from external sources. 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 Peterson had previously ordered her a nuclear stress test which was negative for ischemia, and event monitor which was unremarkable for any significant arrhythmias except short episo de of atrial fib with overall low burden , and her angiogram 2013 had shown normal coronarie s. She started her on metoprolol succinate 50 mg daily but noted she had been seen in ER for chest pain, and had symptoms of fatigue and shortness of breath. Her [id number] VASC score is 4 (stroke, HTN, gender) , and Dr. Peterson did not anticoagulate he r due to low incidence of atrial fib. Her current and previous testing and procedures are detailed below. I had seen her last on December 17, 2019, increased her metoprolol XL to 50 mg twice adelfo y for sinus tachycardia, palpitations. I also had her take magnesium 64 mg twice daily t o help with palpitations, and leg cramps. When I saw her last, she had multiple ER visits from October 11 until October 23 for symptoms of paranoia and hallucinations requiring mental health evaluation and intervention, and her labs from that time are detailed below, so had symptoms of racing heart and palpita tions and some increase in dyspnea with more extreme exertion. Her sugars were also markedly elevated when in ER, and had been started on metformin and glipizide in the emergency room, but stopped by her PCP Dr. Samson as reported she has stre ss hyperglycemia related to her mental illness, and sugars normalize in between her mental h ealth episodes, though she tests them infrequently at home. I had also suggested she may benefit updated sleep evaluation, though apparently her previ ous sleep testing was negative, but has been a few years ago. Today she reports still palpitations but a little less frequent, and still some dyspnea wi th them, and still DAVILA when climbing stairs, but less and can now carry groceries up stairs, and no longer dizzy or lightheaded, and no pedal edema. She denies any signs or symptoms of stroke or TIA, or ER visits since last seen. She reports improved Energy for ADL, and sle eping better now that she has back on her regular psychiatric medications to help with insom shila and anxiety. She has applied to go back to volunteering at the local [employer], though this plan will need to be on hold with current epidemic restrictions . She reports after she lost 160 pounds with a gastric sleeve that she was retested for sle ep apnea 2 years ago, and told the results negative, but has not had CPAP for 3 years She has previously seen Dr. Garland in [place], and different sleep provider in [facility] when lived over there. She reports she has not been on any thyroid medicine for several years, and thyroid func tion has been normal, and that her fatty liver and hyperlipidemia had also resolved with andrey ght loss She reports she is a lifelong non-smoker, and denies any use of alcohol, or recreational or illicit drugs. Medication bottles brought to the clinic today, and personally reviewed by me REVIEW OF SYSTEMS: Negative except for pertinent items noted in HPI. Constitutional:Reports increased energy. Denies unexplained weight loss. Appetite is good . Denies night sweats, fevers or chills HENT: Denies nosebleeds. Denies hearing problems. Denies dysphagia Eyes: Denies visual disturbance or double vision. Respiratory/Sleep:: Previously on CPAP, lost 160 lbs, tested negative sleep apnea Denies c ough , but DAVILA with more extreme exertion like climbing stairs. Denies hemoptysis or excess chris sputum production. Denies snoring, orthopnea, PND. Cardiovascular: Reports decreased Palpitations. Denies chest pain, and leg swelling. Dontae es history of rheumatic fever. Denies claudication . Denies AAA. Gastrointestinal: GERD . On PPI BID Denies nausea, vomiting, abdominal pain and blood in stool.Denies PUD . Genitourinary: Denies hematuria. Musculoskeletal:DDD, back surgery 2014 resolved pain. Denies myalgias,arthralgias. Skin: Denies color change. Denies rash or lesions Neurological: Dizzy and lightheaded now resolves. no recent syncope. History of stroke 2013 affected left side with weakness to left arm and leg, residual left-sided droop to mouth, n o other deficits.Denies history of seizures. Denies numbness. Hematological/Oncology . Bruises easily. Denies bleeding Denies history of cancer. Denies Hx blood transfusion Endocrine: Hx elevated blood sugars with stress (300-500?). Hx Hypothyroidism off medicati ons . Denies excessive thirst or hunger. Psychiatric/Behavioral: Bipolar/Schizophrenia. Tx'd by [facility] Vaccines: Current on flu vaccine: 2019 Current on pneumonia vaccine:PPSV 23 05/29/2013 Habits/Social : Denies history of smoking. Denies EtOH use. Denies recreational or illici t drug use. Exercises sporadically. Lives in [place] . Outpatient Medications Prior to Visit Medication Sig Dispense Refill acetaminophen (TYLENOL) 325 mg tablet Take 325 mg by mouth every 6 (six) hours as neede d for Pain. albuterol 90 mcg/puff inhaler Inhale 2 puffs into the lungs every 4 (four) hours as nee ded for Wheezing. amitriptyline (ELAVIL) 50 mg tablet Take 100 mg by mouth nightly. ARIPiprazole (ABILIFY) 10 mg tablet Take 10 mg by mouth nightly. Blood Glucose Monitoring Suppl ([employer] VERIO FLEX SYSTEM) w/Device KIT by Does not ap ply route. calcium carbonate antacid (TUMS ULTRA 1000) 1000 MG CHEW Chew and swallow 1,000 mg 4 ti mes daily as needed. clonazePAM (KLONOPIN) 0.5 mg tablet Take 0.5 mg by mouth 2 times daily. esomeprazole (NEXIUM) 20 mg capsule Take 20 mg by mouth every morning (before breakfast ). ibuprofen (ADVIL,MOTRIN) 800 MG tablet Rarely takes loperamide (IMODIUM A-D) 2 MG tablet Take 2 mg by mouth as needed for Diarrhea. magnesium chloride (MAG64) 64 mg EC tablet Take 1 tablet by mouth 2 times daily. 60 tab let 11 magnesium oxide 250 MG TABS Take 250 mg by mouth 2 times daily. metoprolol succinate (TOPROL-XL) 50 mg 24 hr tablet Take 1 tablet by mouth 2 times adelfo y. 30 tablet 5 OLANZapine (ZYPREXA) 20 MG tablet Take 20 mg by mouth nightly. pantoprazole (PROTONIX) 20 mg tablet Take 20 mg by mouth 2 times daily (before meals). potassium chloride (KLOR-CON) 10 MEQ ER tablet Take 10 mEq by mouth Daily. Potassium Gluconate 550 MG TABS Take 2 tablets by mouth Daily. Sennosides (EX-LAX) 15 MG CHEW Chew and swallow as needed. No facility-administered medications prior to visit. PHYSICAL EXAM: Wt Readings from Last 3 Encounters: 01/10/20 123.1 kg (271 lb 4.8 oz) 12/17/19 124.1 kg (273 lb 9.6 oz) 10/04/19 134.7 kg (297 lb) Temp Readings from Last 3 Encounters: 01/10/20 36.8 C (98.2 F) 03/06/15 37.1 C (98.8 F) (Oral) 02/26/15 36.2 C (97.2 F) (Oral) BP Readings from Last 3 Encounters: 01/10/20 120/78 12/17/19 134/72 10/04/19 116/70 Pulse Readings from Last 3 Encounters: 01/10/20 74 12/17/19 108 10/04/19 86 GENERAL: Well developed, well nourished woman, in no distress. Appears approximately stat ed age. HEENT: Normocephalic, atraumatic. EYES: PERRL, EOM normal. MOUTH: Oral mucosae moist, dentition adequate, no lesions noted NECK: No JVD, lymphadenopathy, thyromegaly, bruits. Carotid pulses are 2+ bilaterally LUNGS/CHEST: Clear bilaterally, with no rales, rhonchi or wheezing noted, respirations unl abored HEART: Nondisplaced PMI, regular fast rate and rhythm, S1, S2 normal. No murmurs, rubs o r gallops noted. ABDOMEN: Soft, nontender, no organomegaly, masses or bruits. Bowel sounds are normal in a ll 4 quadrants. The abdominal aortic pulsation is not palpable. EXTREMITIES: No pedal edema. Radial pulses 2+ bilaterally. Femoral pulses are 2+ bilate rally without bruits. DP and PT pulses are 2+ bilaterally. No clubbing. SKIN: Warm and dry, capillary refill is normal, no lesions. NEUROLOGIC: Awake, alert and oriented x 3. No focal motor or sensory deficits. PSYCHIATRIC: Appropriate, affect appears Anxious DATA: Blood tests: Lab Results Component Value Date WBC 8.1 07/06/2015 RBC 4.88 07/06/2015 HGB 13.9 07/06/2015 HCT 43.1 07/06/2015 PLT 201 07/06/2015 Lab Results Component Value Date NA 139 07/06/2015 K 4.0 07/06/2015 CL 103 07/06/2015 CO2 25 07/06/2015 ANIONGAP 11 07/06/2015 BUN 9 07/06/2015 No results found for: CHOL, TRIG, LDL, LDL, GLUF No results found for: BNP, TSH, CRP No results found for: TOTEPI CARDIAC PROCEDURES/IMAGING Lexiscan Stress test: 03/05/2019: Images at rest and stress well matched, no evidence of is chemia or infarct. TCD score is normal. EF 72%. Bull's eye images show normal muscle thic kening, cine images show moderate dyskinesia EKG: Resting heart rate 85 bpm maximal heart ra te 123 bpm, 78% of maximum age-predicted heart rate. Resting blood pressure 137/80, stress blood pressure 155/80 exercise test stopped chest discomfort, patient unable to walk on eriberto dmill. Resting EKG normal sinus rhythm, arrhythmias ventricular premature beat Angiogram: 05/24/2014: Normal coronary arteries, moderate LV diastolic dysfunction. VASCULAR TESTING AND PROCEDURES ECHO Last Echo: 05/14/2019: Sinus rhythm. Technically adequate study. EF 65-70%. LV normal in size and wall thickness, no regional wall motion abnormalities, normal diastolic function. RV normal in size and function, moderator band on RV apex. Normal size atria. Aortic valve trileaflet, mildly thickened, no AI, mild sclerosis without stenosis. Mitral valve normal, trace MR. Tricuspid valve normal, trace TR. No pulmonary hypertension, RVSP 27.97 mmHg. Pulmonic valve not well visualized, no pericardial effusion. IVC not well visualized. Aort ic root, ascending aorta, and aortic arch are normal Echo: 10/03/2015: Marked sinus bradycardia with Premature ventricular complexes Left ventri cular systolic function is normal. All four cardiac valves are normal in structure and function. There is no prior echocardiogram noted for this patient. EKG/EVENT MONITOR Event monitor: 08/09/2019: 19 days: Underlying rhythm sinus, average heart rate 93 bpm, ran ge 64-141 bpm. One episode of atrial fib lasting for 4 minutes and 21 seconds, average hea rt rate of 132 bpm. A. fib burden 0.02%. PVC burden 0.23%, PVC's with one episode of NSVT wh ich lasted 5 beats at 130 bpm. SVE burden 0.02%,6 episodes of SVT , longest and fastest 14 4 beats per 6 beats reported corresponded to sinus rhythm and isolated ventricular ectopy.sy mptoms including syncope correlating with sinus events 60 symptoms reported 11 correlated wi th PVC's positive syncope on August 10, 2019 corresponding with sinus rhythm 123 bpm Event monitor: March 01-February: (48 hours ): Sinus rhythm, average rate 87 bpm, range 6 3-137. No AV blocks, no A. fib or flutter. Ventricular ectopy burden 0.04% just triplet 13 4 bpm SVE burden 0.11% 3 episodes greater than 3 beats, longest run 146 bpm 19 beats, fastes t run 146 bpm at 19 beats EK02/22/2019: Sinus rhythm. Left axis deviation nonspecific ST-T wave abnormality rate 82 bpm, MI 176 ms, QRS 80 ms, QTC 446 ms tracing personally reviewed by me EK12/17/2019: Sinus tachycardia, nonspecific ST wave abnormalities, rate 105 bpm, MI 196 ms, QRS 74 ms, QTC 430 ms, tracing personally reviewed by me, and compared to EKG performed in February 2019, rate is less well-controlled EK01/10/2020 (metoprolol XL 50 mg twice daily. Normal sinus rhythm, new left bundle bran ch block Rate 74 bpm, MI 204 ms, QRS 138 ms, QTC 488 ms, tracing personally reviewed by me and Dr. Peterson. compared to EKG performed in November, new left bundle branch block, lead III has lower voltage QRS also in aVL and aVF, and improved voltage to anterior leads and rate i s better controlled. LABS Labs: 12/26/2018: ( [facility])CMP: Sodium 139, potassium 4.2, chloride 99, BUN 10, creatinine 0. 7, BNP 28. CBC: WBC 7.8, hemoglobin 14.3, hematocrit 42.7, platelets 214 Labs: 09/28/2019:( [facility]) CBC: WBC 7.8, hemoglobin 14.9, hematocrit 43.8, platelets 221. C MP: Sodium 132, potassium 4.2, chloride 95, AST 76, ALT 76, alk phos 134 Labs: 10/11/2019:( [facility]) CBC: WBC 6.7, RBC 4.97, hemoglobin 15.2, hematocrit 44.7, platel ets 200. CMP: Glucose 385, BUN 7, creatinine 0.62, GFR 97, sodium 131, potassium 4.1, chlor kelby 95, albumin 4.3, total bilirubin 0.6, AST 75, ALT 73, alk phos 144. Thyroid: TSH 4.27 Labs: 10/12/2020:( [facility]) CBC: WBC 7, RBC 4.93, hemoglobin 14.7, hematocrit 44.1, platele ts 186 normal UA CMP: Glucose 381, BUN 6, creatinine 0.63, GFR 95, sodium 133, potassium 3.8 , chloride 97, albumin 4.3, total bili 0.6, AST 62, ALT 75, alk phos 145 thyroid: TSH 3.07 Labs: 10/20/2019:( [facility]) CBC: WBC 7.1, RBC 4.93, hemoglobin 15.1, hematocrit 45.2, platel ets 204. CMP: Glucose 540, BUN 8, creatinine 0.81, GFR 71, sodium 131, potassium 4.1, chlor kelby 95, albumin 4.2, total bili 0.5, AST 54, ALT 63, alk phos 123, negative screen for all d rugs except tricyclics. Thyroid: TSH 3.39. ASSESSMENT & PLAN: She was here to follow up on spines to metoprolol XL 50 mg twice daily for palpitations and increased heart rate. She has problems as detailed below. Her EKG performed in the clinic today shows proved heart rate control with sinus rhythm at 74 bpm, but has developed new left bundle branch block since I saw her last on December 17. I discussed and reviewed her EKG results with her methane gas collection system operator, Dr. Peterson, who is in the cli vickie today, and the plan is to get an updated echo to evaluate her for any new wall motion ab normalities. If she has any wall motion abnormalities, she will need to have further evalua tion for ischemic heart disease in [place] such as a stress test or angiogram I reviewed her EKG with her, and discussed this plan with her. The Echo will be ordered on an urgent basis, is currently a restriction on all nonurgent testing at [facility] . She was agreeable to this plan . Symptomatically she feels much improved on metoprolol XL 50 mg twice daily as discussed in HPI, and heart rate and blood pressure well controlled I made no changes to her medications today, have continued metoprolol XL 50 mg twice daily for tachycardia and palpitations, as well as magnesium oxide 250 mg twice daily for palpitat ions, and leg cramps which she thinks has helped. If she has any ischemic heart disease, she will also need to be started on a statin, which I discussed with her today. I did discuss with her that if she had more prolonged episodes of atrial fib, that we wou ld need to consider anticoagulation. I also discussed with her that may need updated evalu ation for sleep apnea if she develops more atrial fibrillation, even though tested negative a few years ago after 160 lb weight loss per her report. I will follow-up with her 01/28/2020 results of her echo, and she will follow-up with Dr. Yunier hayward on April 10. 1. History of atrial fibrillation 2. Benign essential HTN 3. History of hypothyroidism 4. Stress hyperglycemia 5. History of stroke 6. Mild hyperlipidemia 7. Sinus tachycardia by electrocardiogram 8. New onset left bundle branch block (LBBB) Orders Placed This Encounter Procedures ECG 12 lead ECHO Complete The following portions of the patient's history were personally reviewed by me and updated as appropriate: EKG tracings, other specialty provider and PCP notes,any Hospital admission and discharge summaries, any ER records , current and previous cardiac testing and procedure reports and d emilia,medication bottles brought to visit today personally reviewed by me. Allergies, current medications.labs Family history, past medical history, past social history, past surgical history. Problem list. This encounter was dictated with voice recognition software and may contain inadvertent rec ognition errors. Portions of this chart may have been copied from previous notes for continuity of care purp ose [facility] 01/10/2020 docume nted in this encounter Plan of Treatment + + +--------+ + + | Name | Type | Priori | Associated Diagnoses | Order Schedule | | | | ty | | | + + +--------+ + + | ECHO Complete | Echocardiog | KARLIE | History of atrial | Expected: | | | justin | | fibrillation | 01/10/2020, Expires: | | | | | History of stroke | 01/09/2021 | | | | | Sinus tachycardia by | | | | | | electrocardiogram | | | | | | New onset left | | | | | | bundle branch block | | | | | | (LBBB) | | + + +--------+ + + documented as of this encounter Procedures + +--------+ + + + | Procedure Name | Priori | Date/Time | Associated Diagnosis | Comments | | | ty | | | | + +--------+ + + + | ECG 12 LEAD | Routin | 01/10/2020 | History of atrial | Results for this | | | e | 10:40 AM | fibrillation Benign | procedure are in the | | | | PDT | essential HTN | results section. | | | | | History of | | | | | | hypothyroidism | | | | | | Stress hyperglycemia | | | | | | History of stroke | | | | | | Mild hyperlipidemia | | | | | | Sinus tachycardia | | | | | | by electrocardiogram | | + +--------+ + + + documented in this encounter Results ECG 12 lead (01/10/2020 10:40 AM PDT) + + + + + + | Component | Value | Ref Range | Performed | Pathologist | | | | | At | Signature | + + + + + + | VENTRICULAR | 74 | BPM | [facility] | | | RATE EKG | | | | | + + + + + + | ATRIAL RATE | 74 | BPM | [facility] | | + + + + + + | P-R | 204 | ms | [facility] | | | INTERVAL | | | | | + + + + + + | QRS | 138 | ms | [facility] | | | DURATION | | | | | + + + + + + | Q-T | 440 | ms | [facility] | | | INTERVAL | | | | | + + + + + + | Q-T | 488 | ms | [facility] | | | INTERVAL | | | | | | (CORRECTED) | | | | | + + + + + + | P WAVE AXIS | 70 | degrees | [facility] | | + + + + + + | QRS AXIS | 42 | degrees | [facility] | | + + + + + + | T AXIS | 37 | degrees | [facility] | | + + + + + + | INTERPRETAT | Normal sinus rhythmnew | | [facility] | | | ION TEXT | LBBBCannot rule out | | | | | | Septal infarct (cited on | | | | | | or before | | | | | | 10-JAN-2020)Abnormal | | | | | | ECGWhen compared with | | | | | | ECG of 17-DEC-2019 | | | | | | 10:29,there is new LBBB | | | | | | , and rate is better | | | | | | controlled wiht | | | | | | resolution of sinus | | | | | | tachycardia Confirmed by | | | | | | Dora De La Torre | | | | | | Yesenia ([id number]) on | | | | | | 01/10/2020 11:51:20 AM | | | | + + + + + + + + | Specimen | + + | | + + + + + | Narrative | Performed At | + + + | | | + + + + +---------+ + + | Performing | Address | City/State/Zipcode | Phone Number | | Organization | | | | + +---------+ + + | [facility] | | | | + +---------+ + + documented in this encounter Visit Diagnoses + + | Diagnosis | + + | History of atrial fibrillation - Primary Personal history of other diseases of | | circulatory system | + + | Benign essential HTN Essential hypertension, benign | + + | History of hypothyroidism Personal history of other endocrine, metabolic, and | | immunity disorders | + + | Stress hyperglycemia Other abnormal blood chemistry | + + | History of stroke Transient ischemic attack (TIA), and cerebral infarction without | | residual deficits | + + | Mild hyperlipidemia Other and unspecified hyperlipidemia | + + | Sinus tachycardia by electrocardiogram | + + | New onset left bundle branch block (LBBB) | + + documented in this encounter
--- OUTSIDE RECORDS SUMMARY | ~2020-07-03 | XMS | Encounter Summary ---
Demographics + + + | Address | [address] [facility] | | | [place] [address] | + + + | Home Phone [...] [place] | | | | | [address] | | + + + + + Care Team Providers + +------+ + | Care Marine Equipment Design Engineer Name | Role | Phone | [...] | | | spondylolist | | [address] [place] | | | | | hesis | | [place], | | | | | Spinal | | [place] [address] | | | | | stenosis, | | Phone: | | | | | lumbar | | [phone] | | | | | region, | | Fax: | | | | | without | | [phone] | | | | | neurogenic | [...] | | | | | | | MD ARTHDSIS | | | | | | [...] | | | | | | ION MD | | | | | | | [...] | | | | | | SEG MD | | | | | | | [...] + + | 07/02/ | Hospital | [facility] | Frandy Teresa, | Spinal stenosis, | | 2013 | Encounter | MED CTR XRAY [address] | DO [address] | lumbar region, | | | | [place] | [address] [place] | without neurogenic | | | | [place] [address] | [id number] | claudication | | | | [phone] | | (Primary Dx) | +--------+ + [...] + + + +---------+ + + | Granville-3 Fatty | Take 1,000 mg by | [...]
--- OUTSIDE RECORDS SUMMARY | ~2020-07-03 | XMS | Encounter Summary ---
Demographics + + + | Address | [address] [facility] | | | [place] [address] | + + + | Home Phone | | + + + | Preferred Language | Unknown | + + + | Marital Status | | + + + | Religion Affiliation | 1013 | + + + [...] [place] | | | | | [address] | | + + + + + Care Team Providers + +------+ + | Care Greenhouse Laborer Name | Role | Phone | + +------+ + | Natalee Andersen NP | PCP | | + +------+ + Encounter Details +--------+ + + + + | Date | Type | Department | Care Team | Description | +--------+ + + + + | 06/25/ | Hospital | [facility] | Frandy Teresa, | Acquired | | 2014 | Encounter | MED CTR XRAY [address] | DO [address] | spondylolisthesis | | | | [place] | [address] [place], [place] | | | | | [place] [address] | [address] | | | | | [phone] | | | +--------+ + + + [...] + + + +---------+ + + | Baltic-3 Fatty | Take 1,000 mg by | [...]
--- OUTSIDE RECORDS SUMMARY | ~2020-07-03 | XMS | Encounter Summary ---
Demographics + + + | Address | [address] [facility] | | | [place] [address] | + + + | Home Phone [...] [place] | | | | | [address] | | + + + + + Care Team Providers + +------+ + | Care Area Development Manager Name | Role | Phone | + +------+ + | Natalee Andersen NP | PCP | | + +------+ + Encounter Details +--------+ + + + + | Date | Type | Department | Care Team | Description | +--------+ + + + + | 06/25/ | Anesthesia | [facility] | Orlando Patel, | | | 2013 | Event | MED CTR OR INTRA OP | MD [address] | | | | | [address] | [place], [place] | | | | | [place] | [address] | | | | | [address] | | | | | | [phone] | | | +--------+ + + + + Anesthesia Record + + + + + | Procedure Name | Responsible | Anesthesia Start | Anesthesia Stop Time | | | Anesthesiologist | Time | | + + + + + | PROCEDURE NOT | | | | | PERFORMED | | | | + + + + + + + | No events on file. | + + +------+ | Meds | +------+ + + + No medications | on file. | + + + + + | No agents on file. | + + + + | No blood administrations on file. | + + + + | No LDAs on file. | + + documented in this encounter Social [...] as of this encounter [place] Notes Anesthesia Preprocedure Evaluation - Orlando Patel MD - 06/25/2014 2:14 PM Eddie saeed of this note might be different from the original. ANESTHESIA PREANESTHESIA EVALUATION Cindy Arndt 58 y.o. female 1955 [id number] Scheduled procedure LAMINECTOMY PLIF/TLIF INSTRUMENTATION [1842] - L5-S1 TLIF Medical history, anesthesia, medications, allergy histories reviewed. ECG reviewed. Labs reviewed. ROS / Med History Ane (+) PONV. (-) difficult intubation, malignant hyperthermia . NPO status verified. CV (+) hypertension.(-) past TX. (+) Dysrhythmias (h/o PVCs) Exercise tolerance >4 METS. Pulm No acute pulmonary concerns.. (+) sleep apnea (w/ CPAP). Neuro (+) headaches.(-) CVA. Psych (+) anxiety, depression, bipolar disorder, schizophrenia. Renal (-) chronic renal insufficiency GI/Hep (+) reflux/GERD. Endo (+) hypothyroidism. (+) Diabetes:type 2, NIDDM. (+) obesity: morbid BMI 40+. Other (+) anemia. Anesthesia Physical Exam Anesthesia Plan ASA 3 Type: General. Induction: Intravenous. Potential problems: None anticipated. Monitors: Standard ASA monitors. Consent statement:Anesthetic plan, alternatives, risks and benefits discussed with patient. Risks discussed included (but were not limited to): sore throat, nausea, heart problems, re spiratory events, pain, perioperative CV events, . Consenting person understands and agrees to proceed. PARQ. Morbid obesity. New lab with Na of 126 on 06/25. Was 135 on 05/29/14. Discussed with Dr. Teresa. Decision to work up by primary care and cancel case today (06/25/14). documented in this en counter Plan of Treatment Not on filedocumented as of this encounter Visit Diagnoses Not on filedocumented in this encounter"
--- OUTSIDE RECORDS SUMMARY | ~2020-07-03 | XMS | Encounter Summary ---
Demographics + + + | Address | [address] [facility] | | | [place] [address] | + + + | Home Phone [...] [place], [place] | | | | | [address] | | + + + + + Care Team Providers + +------+ + | Care Inside Finisher Name | Role | Phone | + +------+ + PCP | Unavailable | + +------+ + Encounter Details +--------+ + + + + | Date | Type | Department | Care Team | Description | +--------+ + + + + | 03/26/ | Hospital | [facility] | | | | 2001 | Encounter | MED CTR LABORATORY | | | | | | [address] | | | | | | [place] | | | | | | [address] | | | | | | [phone] | | | +--------+ + + + [...]
--- OUTSIDE RECORDS SUMMARY | ~2020-07-03 | XMS | Encounter Summary ---
Demographics + + + | Address | [address] [facility] | | | [place] [address] | + + + | Home Phone | | + + + | Preferred Language | Unknown | + + + | Marital Status | Single | + + + | Bahai Affiliation | Unknown | + + + [...] [place] | | | | | [address] | | + + + + + Care Team Providers + +------+ + | Care Machine Maintenance Supervisor Name | Role | Phone | [...] Clinic | | | | | | [facility], [address] | | | | | | [place], [place] | | | | | | [address] | | | | | | [phone] | | | +--------+ + + + [...] as of this encounter Progress Notes Interface, Manager Of Planning In - 12/11/2006 5:03 AM [facility] DATE: 07/03/97 INFECTIOUS DISEASE CLINIC: REFERRED [...]
--- OUTSIDE RECORDS SUMMARY | ~2020-07-03 | XMS | Encounter Summary ---
Demographics + + + | Address | [address] [facility] | | | [place] [address] | + + + | Home Phone [...] [place] | | | | | [address] | | + + + + + Care Team Providers + +------+ + | Care Beam Machine Operator Name | Role | Phone | + +------+ + PCP | Unavailable | + +------+ + Encounter Details +--------+ + + + + | Date | Type | Department | Care Team | Description | +--------+ + + + + | 12/27/ | Hospital | [facility] | | | | 1997 | Encounter | MED CTR EMERGENCY | | | | | | CENTER [address] | | | | | | [place] | | | | | | [address] | | | | | | [phone] | | | +--------+ + + + [...]
--- OUTSIDE RECORDS SUMMARY | ~2020-07-03 | XMS | Encounter Summary ---
Demographics + + + | Address | [address] [facility] | | | [place] [address] | + + + | Home Phone [...] [place], [place] | | | | | [address] | | + + + + + Care Team Providers + +------+ + | Care Livestock Commission Agent Name | Role | Phone | [...] | SR | | | | | [address] | | | | | | [place], [place] | | | | | | [address] | | | | | | [phone] | | | +--------+ + + + [...]
--- OUTSIDE RECORDS SUMMARY | ~2020-07-03 | XMS | Encounter Summary ---
Demographics + + + | Address | [address] [facility] [address] | | | [place] [address] | + + + | Home Phone [...] [place] | | | | | [address] | | + + + + + Care Team Providers + +------+ + | Care School Health Assistant Name | Role | Phone | + +------+ + | Hari Samson DO | PCP | | + +------+ + Reason for Visit +--------+--------+ + | Reason | Onset | Comments | | | Date | | +--------+--------+ + | Other | 05/19/ | Cancel appointment | | | 2020 | | +--------+--------+ + Encounter Details +--------+ + + + + | Date | Type | Department | Care Team | Description | +--------+ + + + + | 05/19/ | Telephone | [facility] | Britt Dora | Other (Cancel | | 2020 | | CARDIOLOGY [place] | CAROL[address] M[address] | appointment) | | | | [address] | [address] | | | | | [address] | [place] [address] | | | | | [place], [place] | [phone] | | | | | [address] | | | | | | [phone] | | | +--------+ + + + [...] this encounter Miscellaneous Notes Telephone Encounter - Cindy Nicholas CMA - 05/19/2020 10:42 AM [facility] Dora Mendez as it was for psychiatric reasons and not hea rt related. Dora Mendez will follow up with patient after she has her monitor put on. PHElectr onically signed by Cindy Nicholas CMA at 05/19/2020 10:46 AM PDTdocumented in this encount er Plan of Treatment Not on filedocumented as of this encounter Visit Diagnoses Not on filedocumented in this encounter"
--- OUTSIDE RECORDS SUMMARY | ~2020-07-03 | XMS | Encounter Summary ---
Demographics + + + | Address | [address] [facility] [address] | | | [place] [address] | + + + | Home Phone | | + + + | Preferred Language | Unknown | + + + | Marital Status | Single | + + + | Temple Affiliation | Unknown | + + + | Race | White | + + + | Ethnic Group | Not or | + + + Author + + + | Author | [facility] | + + + | Organization | [facility] | + + + | Address | Unknown | + + + | Phone | Unavailable | + + + Support + + + + + | Name | Relationship | Address | Phone | + + + + + | Kelsy Bautista | ECON | [address] | | | | | [place] | | | | | [address] | | + + + + + Care Team Providers + +------+ + | Care Lead Programmer Analyst Name | Role | Phone [...] | | | | | | [place], | | | | | | [place] [address] | | | | | | [phone] | | | +--------+ + + + [...] | | + +---------+ + + | [facility] DEPARTMENT OF | | | | | RADIOLOGY | | | | + +---------+ + + documented in this encounter Visit Diagnoses Not on filedocumented in this encounter"
--- OUTSIDE RECORDS SUMMARY | ~2020-07-03 | XMS | Encounter Summary ---
Demographics + + + | Address | [address] [facility] [address] | | | [place] [address] | + + + | Home Phone [...] [place] | | | | | [address] | | + + + + + Care Team Providers + +------+ + | Care Curing Room Worker Name | Role | Phone | + +------+ + | Natalee Andersen NP | PCP | | + +------+ + Encounter Details +--------+ + + + + | Date | Type | Department | Care Team | Description | +--------+ + + + + | 06/26/ | Hospital | [facility] | Heather Cordero PT | | | 2013 | Encounter | MED CTR ACUTE | [address] | | | | | PHYSICAL THERAPY | [place] | | | | | [address] | [address] | | | | | [place] [address] | | | | | | [phone] | | | +--------+ + + + [...] + + + +---------+ + + | [place]-3 Fatty | Take 1,000 mg by | [...]
--- OUTSIDE RECORDS SUMMARY | ~2020-07-03 | XMS | Encounter Summary ---
Demographics + + + | Address | [address] [facility] | | | [place] [address] | + + + | Home Phone [...] [place] | | | | | [address] | | + + + + + Care Team Providers + +------+ + | Care Carpenter Assistant Installer Name | Role | Phone | + [...] [address] | [address] [place], [place] | | | | | [place], [place] | [address] | | | | | [address] | | | | | | [phone] | | | +--------+ + + + [...] Not on filedocumented as of this encounter Results XR Lumbar [...] + | MISCELLANEOUS LAB | | | [phone] | + +---------+ + + | MISCELANIOUS LAB | | | [phone] | + +---------+ + + documented in this encounter Visit Diagnoses + + | Diagnosis | + + | Back pain - Primary Backache, unspecified | + + documented in this encounter"
--- OUTSIDE RECORDS SUMMARY | ~2020-07-03 | XMS | Encounter Summary ---
Demographics + + + | Address | [address] [facility] [address] | | | [place] [address] | + + + | Home Phone [...] [place] | | | | | [address] | | + + + + + Care Team Providers + +------+ + | Care Concreter Name | Role | Phone | + +------+ + | Adriano Patrick MD | PCP | | + +------+ + Reason for Visit +--------+--------+ + | Reason | Onset | Comments | | | Date | | +--------+--------+ + | Other | 08/16/ | Called to tell patient what Dr Peterson said. | | | 2018 | | +--------+--------+ + Encounter Details +--------+ + + + + | Date | Type | Department | Care Team | Description | +--------+ + + + + | 08/16/ | Telephone | [facility] | Ashley Chávez | Other (Called to | | 2018 | | CARDIOLOGY [place] | Pollo, Small Kick Press Operator | tell patient what | | | | [address] | | Nicholas said. ) | | | | [place] [address] | | | | | | [place] | | | | | | [address] | | | | | | [phone] | | | +--------+ + + + [...] Miscellaneous Notes Telephone Encounter - Ashley Chávez, Small Kick Press Operator - 08/16/2019 2:57 PM PDTCall m cierra to patient to advise of Dr. Peterson's notes. Patient stated understanding. BRODY:IRINA-AAMA el ephone Encounter - Ashley Chávez Small Kick Press Operator - 08/16/2019 2:56 PM PDT----- Mess age [...] standpoint. Thanks. ----- Message ----- From: Lesa Ochoa Small Kick Press Operator Sent: 08/13/2019 13:31 To: Desiree Peterson DO Pt called due to two urgent reports on her monitor- both scanned in the media tab for you t o review. She said she would like a call from our office in regards to these. She stated she has been having a lot of difficulties this weekend with weakness and shortness of breath. Eric mckay advise. doc umented in this encounter Plan of Treatment Not on filedocumented as of this encounter Visit Diagnoses Not on filedocumented in this encounter"
--- OUTSIDE RECORDS SUMMARY | ~2020-07-03 | XMS | Encounter Summary ---
Demographics + + + | Address | [address] [facility] | | | [place] [address] | + + + | Home Phone [...] [place] | | | | | [address] | | + + + + + Care Team Providers + +------+ + | Care Polishing Machine Operator Name | Role | Phone [...] | Frandy Simons DO | [address] | | | | | of skin | [address] | [place], | | | | | sensation | [address] | [place] | | | | | Arthrodesis | [place] | [address] | | | | | status Left | [address] | Phone: | | | | | leg | Phone: | [phone] | | | | | weakness | [phone] | Fax: | | | | | Procedures | Fax: | [phone] | | | | | MRI Lumbar | [phone] | | | | | | Spine [...] [address] | [address] [place], [place] | | | | | [place], [place] | [address] | | | | | [address] | | | | | | [phone] | | | +--------+ + + + [...] on: 08/13/2014 08:55 Modules accepted: Orders elephone Encoun ter - Shayne Aragon Cert MA - 08/13/2014 8:55 AM PDTI scheduled cindy for her MRI here at [facility] on 08/19. SHAYNE ARAGON elephone Encounte r - Brii, Frandy A, DO - 08/12/2014 4:23 PM PDTOK. Please have her undergo MRI of the lumb ar spine without contrast and call when it's done for me to review. Thanks. elephone Grzegorz solis - Shayne Aragon Cert MA - 08/12/2014 [...] on filedocumented as of this encounter Results MRI Lumbar [...] the round structure with high T1 and X9uyixsz in the right L3 vertebral | | [...] + | MISCELLANEOUS LAB | | | [phone] | + +---------+ + + | MISCELANIOUS LAB | | | [phone] | + +---------+ + + documented in [...]
--- OUTSIDE RECORDS SUMMARY | ~2020-07-03 | XMS | Encounter Summary ---
Demographics + + + | Address | [address] [facility] | | | [place] [address] | + + + | Home Phone [...] [place], [place] | | | | | [address] | | + + + + + Care Team Providers + +------+ + | Care Hazmat Cdl Driver Name | Role | Phone | + +------+ + PCP | Unavailable | + +------+ + Encounter Details +--------+ + + + + | Date | Type | Department | Care Team | Description | +--------+ + + + + | 02/02/ | Hospital | [facility] | | | | 1997 - | Encounter | MED CTR GENERIC PSY | | | | | | CONV DEPT [address] | | | | 02/05/ | | [place], | | | | 1997 | | [place] [address] | | | | | | [phone] | | | +--------+ + + + [...]
--- OUTSIDE RECORDS SUMMARY | ~2020-07-03 | XMS | Encounter Summary ---
Demographics + + + | Address | [address] [facility] [address] | | | [place] [address] | + + + | Home Phone [...] [place] | | | | | [address] | | + + + + + Care Team Providers + +------+ + | Care In Flight Technician Name | Role | Phone | + +------+ + | Natalee Andersen NP | PCP | | + +------+ + Reason for Visit + +--------+ + | Reason | Onset | Comments | | | Date | | + +--------+ + | Medication Refill | 08/26/ | | | | 2013 | | + +--------+ + Encounter Details +--------+--------+ + + + | Date | Type | Department | Care Team | Description | +--------+--------+ + + + | 08/26/ | Refill | [facility] | Frandy Teresa, | Medication Refill | | 2013 | | NEUROSURGERY [address] | DO [address] | | | | | [facility] | [address] [place], [place] | | | | | [place], [place] | [id number] | | | | | [address] | | | | | | [phone] | | | +--------+--------+ + + + [...] Telephone Encounter - Megan Schreiber RN - 08/27/2014 10:38 AM PSTCalled pt to notify that p rescription refill for Howell has been authorized. Informed about MRI results per MD results. Also notified about new medication neurontin. Pt verbalized understanding and will notify o ur office if her numbness to bilat feet (upper and lower) doesn't improve. Pt requested refi ll rx of Howell to be mailed via certified mail [facility] signed by Megan Schreiber, RN at 08/27/2014 10:40 AM PSTTelephone Encounter - Frandy Teresa DO - 08/26/2014 5:29 PM PSTRefill done. MRI looks okay. I'm going to start neurontin to s ee if that helps. It should improve with time. If not, we can see about getting her to a helen rologist for further workup. Thanks. elephone Enco unter - Megan Schreiber RN - 08/26/2014 3:00 PM PSTPt called to requesting medication refill of Howell. Pt c/o l ower back and left lower leg pain, described as aching to sharp pain, ta alexis 1 norco 3-4 tabs per day. Increased numbness to feet reported. MRI done 08/19/14 regarding the increased numbness. Ambulating mile every other day. Taking robaxin 1 tab pe r day. Do not need refill on that. Pt would like to know the results from MRI. Incisions healed and approximated. S/p 07/02/14MIS L5-S1 TRANSFORAMINAL LUMBAR INTERBODY FUSI ON Refill rx attached Approve/deny Thanks documented in thi s encounter Plan of Treatment Not on filedocumented as of this encounter Visit Diagnoses Not on filedocumented in this encounter"
--- OUTSIDE RECORDS SUMMARY | ~2020-07-03 | XMS | Encounter Summary ---
Demographics + + + | Address | [address] [facility] [address] | | | [place] [address] | + + + | Home Phone [...] [place], [place] | | | | | [address] | | + + + + + Care Team Providers + +------+ + | Care Clinical Appeals Rn Name | Role | Phone | + +------+ + PCP | Unavailable | + +------+ + Encounter Details +--------+ + + + + | Date | Type | Department | Care Team | Description | +--------+ + + + + | 01/16/ | Hospital | [facility] | | | | 2002 | Encounter | MED CTR XRAY [address] | | | | | | [address] [place] | | | | | | [place] [address] | | | | | | [phone] | | | +--------+ + + + [...]
--- OUTSIDE RECORDS SUMMARY | ~2020-07-03 | XMS | Encounter Summary ---
Demographics + + + | Address | [address] [facility] | | | [place] [address] | + + + | Home Phone [...] [place] | | | | | [address] | | + + + + + Care Team Providers + +------+ + | Care Filterer Name | Role | Phone | + [...] | | | | | mellitus, | [address] | [place] | | | | | controlled | Phone: | [address] | | | | | (HCC) | [phone] | Phone: | | | | | History of | Fax: | [phone] | | | | | gastric | [phone] | Fax: | | | | | restrictive | | [phone] | | | | | surgery | [...] | | | y Type 2 | [address] | [place] | | | | | diabetes | Phone: | [address] | | | | | mellitus, | [phone] | Phone: | | | | | controlled | Fax: | [phone] | | | | | (HCC) | [phone] | Fax: | | | | | Obesity, | | [phone] | | | | | Class III, [...] | | FOR[facility]AT[facility] & Katharine BUCIO in [place]. | + + + | Other | [...] + + | 03/06/ | Office | [facility] | Katharine Cardona PA-C | Hypothyroidism due | | 2015 | Visit | MEDICINE [address] [place] | to acquired atrophy | | | | [address] [place] [address], | [place] [address] | of thyroid (Primary | | | | [place] [id number] | [phone] | Dx); Essential | | | | [phone] | | hypertension; Iron | | | [...] Stroke | | | | | | ([facility]); Environmental | | | | | | [...] | | | | | | obesity) ([facility]); | | | | | | Type 2 diabetes | | | | | | mellitus, controlled | | | | | | ([facility]); Preventative | | | | | | [...] t be different from the original. Ask [facility] if they think it might be helpful [...] wait to see how labs look. Madiha gaston consider switch to Aldactazide in the future. Iron Def Anemia Ferrous sulfate 325 bid. Take at bedtime (to avoid daytime nausea) and between lunch and dinner for best absorption (not with meals). Refer for colonoscopy to see if we can id a cause. Schizoaffective disorder Cont your meds as prescribed. F/U with [facility] as scheduled Neuropathy Continue gabapentin. May consider increase if pain is not controlled. May benefit from switching from Paxil to one of the SNRIs or TCAs for analgesic effects, ho manju, she is doing so well on her current regimen it may not be worth making any changes an d find alternate ways to deal with the pain. Would be worth discussing with [facility] Psych Back Pain Will refer to water therapy (aqua fitness) at [facility] as request ed. ROGERS on [...] Colonoscopy procedures 4. Schizoaffective disorder, bipolar type ([facility]) 5. Neuropathy Vitamin B-12 6. BACK PAIN, LUMBAR, WITH RADICULOPATHY Ambulatory referral to Physical Therapy 7. ROGERS on CPAP 8. Stroke ([facility]) 9. Environmental and seasonal allergies fluticasone (FLONASE) 50 mcg/nasal spray 10. Gastroesophageal reflux disease without esophagitis dexlansoprazole (DEXILANT) 60 mg D R capsule 11. History of gastric restrictive surgery Vitamin D, 25-Hydroxy Nutrition Services - External - AMB Referral 12. Obesity, Class III, BMI 40-49.9 (morbid obesity) ([facility]) Ambulatory referral to Physical Therapy Nutrition Services - External - AMB Referral 13. Type 2 diabetes mellitus, controlled ([facility]) Ambulatory referral to Physical Therapy Nutrition Services [...] Cont your meds as prescribed. [facility] Neuropathy Continue gabapentin. May consider [...] the pain. Would be worth discussing with [facility] professional. Back Pain Will refer to water therapy (aqua fitness) at [facility] as request ed. Cont home exercise, stretching, [...] plan. The above note was dictated using [employer] voice recognition software. It may have not been proofread in entirety. Minor errors in grammar may occur. CHIEF COMPLAINT Chief Complaint Patient presents with Establish Care Presents to establish care. Former patient of Natalee [facility] Kath[facility] BUC[facility] in [place]. Other Possible stroke January 2015. Is now seeing Dr. Newman, changed to Plavix 02-27-15 from [facility]. Diabetes NIDDM. Checks blood sugars almost [...] auditory, at 36. She worked as an [employer] prior to her psychotic break. She is now very well controlled on Saphris, Depakote, and Paxi l. She is followed by [facility] in [place]. She has DM2 that is well controlled with diet and exercise. She takes Metformin 500 mg 24 h r tablet and watches her diet. She walks 1 mi/day, 4 to 6x/wk. States her FBS runs 94 to 112 , her preprandial BS runs 94 to 100. She just switched to qd BS checks about 10 d ago. Arian s compliant. No polydipsia or polyuria. No [...] Laterality: N/A; Surgeon: Frandy castellanos DO; Location: [facility] MA[facility] OR SOCIAL HISTORY History Social [...] mg by mouth Daily. Cholecalciferol (VITAMIN D-3) 82547 units CAPS Oral Take 50,000 Units by [...] Oral Take 10 mg by mouth nightly. [place]-3 Fatty Acids (FISH OIL CONCENTRATE) 1000 MG [...] in this encou nter Plan of Treatment + + +--------+ + [...] | | | | | | controlled ([facility]) | | | | | | Obesity, Class III, | | | | | | BMI 40-49.9 (morbid | | | | | | obesity) ([facility]) | | + + +--------+ + + | Nutrition Services - | Outpatient | Routin | Iron deficiency | Ordered: 03/06/2015 | | External - AMB | Referral | e | anemia Type 2 | | | Referral | | | diabetes mellitus, | | | | | | controlled ([facility]) | | | | | | History of gastric | | | | | | restrictive surgery | | | | | | Obesity, Class III, | | | | | | BMI 40-49.9 (morbid | | | | | | obesity) ([facility]) | | + + +--------+ + + [...] mL/min/1.73m2 | [facility] | | | Samoan | RATE,ESTIMATED | | MEDICAL | | | | mL/min/1.94j2Pmai than | | CENTER - | | [...] + | [facility] | [address] | [place] | [phone] | | [facility] | | [address] | | | - LABORATORY | | [...] + + | Schizoaffective disorder, bipolar type ([facility]) Schizoaffective disorder, unspecified | | condition | [...]
--- OUTSIDE RECORDS SUMMARY | ~2020-07-03 | XMS | Encounter Summary ---
Demographics + + + | Address | [address] [facility] [address] | | | [place] [address] | + + + | Home Phone [...] [place] | | | | | [address] | | + + + + + Care Team Providers + +------+ + | Care Payment Collector Name | Role | Phone | [...] + + | 02/06/ | Telephone | [facility] | BrittDora | Patient Concerns | | 2020 | | CARDIOLOGY [place] | [address] | | | | | [address] | [address] | | | | | [address] | [place] [address] | | | | | [place] | [phone] | | | | | [address] | | | | | | [phone] | | | +--------+ + + + [...]
--- OUTSIDE RECORDS SUMMARY | ~2020-07-03 | XMS | Encounter Summary ---
Demographics + + + | Address | [address] [facility] [address] | | | [place] [address] | + + + | Home Phone [...] [place] | | | | | [address] | | + + + + + Care Team Providers + +------+ + | Care River Expedition Guide Name | Role | Phone | [...] + + | 06/05/ | Telephone | [facility] | Dora De La Torre | Cardiology | | 2020 | | CARDIOLOGY [place] | CAROLINE [address] | Appointment | | | | [address] | [address] | | | | | [address] | [place] [address] | | | | | [place] | [phone] | | | | | [address] | | | | | | [phone] | | | +--------+ + + + [...] encounter Miscellaneous Notes Telephone Encounter - BrittDora, SOCCER REFEREE - 06/05/2020 1:08 PM MELANIE Cindy called kristin garcia and notified my medical driver that she had thrown up all over [...] 1 of the few prov iders in [place] currently. Dr. Richter is in agreement with this plan, and we also communicated it to Cindy, so she knows that Dr. Richter will continue to monitor her on twice weekly basis documented in this encounter Plan of Treatment Not on filedocumented as of this encounter Visit Diagnoses Not on filedocumented in this encounter"
--- OUTSIDE RECORDS SUMMARY | ~2020-07-03 | XMS | Encounter Summary ---
Demographics + + + | Address | [address] [facility] [address] | | | [place] [address] | + + + | Home Phone [...] [place], [place] | | | | | [address] | | + + + + + Care Team Providers + +------+ + | Care Ring Packer Name | Role | Phone | + +------+ + PCP | Unavailable | + +------+ + Encounter Details +--------+ + + + + | Date | Type | Department | Care Team | Description | +--------+ + + + + | 01/25/ | Hospital | [facility] | | | | 2002 | Encounter | MED CTR XRAY [address] | | | | | | [address] | | | | | | [place] [address] | | | | | | [phone] | | | +--------+ + + + [...]
--- OUTSIDE RECORDS SUMMARY | ~2020-07-03 | XMS | Encounter Summary ---
Demographics + + + | Address | [address] [facility] [address] | | | [place] [address] | + + + | Home Phone [...] [place] | | | | | [address] | | + + + + + Care Team Providers + +------+ + | Care Marketing Database Analyst Name | Role | Phone | [...] + + | 04/30/ | Office | [facility] | Russell Alfaro PA | ROGRES on CPAP (Primary | | 2015 | Visit | SLEEP DISORDER [address] | [address] | Dx) | | | | [address] | [place] | | | | | [place] [address] | [id number] | | | | | [phone] | | | +--------+---------+ + + + [...] Insomnia Severity Index Insomnia Severity Index 13 Granger Sleepiness Scale Sitting and reading 3 Watching [...] appro priate paperwork. Thirty minutes were spent [id number]-[id number], with the majority of time spent i [...]
--- OUTSIDE RECORDS SUMMARY | ~2020-07-03 | XMS | Encounter Summary ---
Demographics + + + | Address | [address] [facility] [address] | | | [place] [address] | + + + | Home Phone [...] [place] | | | | | [address] | | + + + + + Care Team Providers + +------+ + | Care Skip Loader Name | Role | Phone | [...] + + | 08/13/ | Documentati | [facility] | Katharine Moncada, | Other (urgent | | 2019 | on | CARDIOLOGY GENESIS | Technologist | report) | | | | [address] | | | | | | [place] | | | | | | [address] | | | | | | [phone] | | | +--------+ + + + [...]
--- OUTSIDE RECORDS SUMMARY | ~2020-07-03 | XMS | Encounter Summary ---
Demographics + + + | Address | [address] [facility] | | | [place] [address] | + + + | Home Phone [...] [place] | | | | | [address] | | + + + + + Care Team Providers + +------+ + | Care Maintenance Planner Name | Role | Phone | + +------+ + | Natalee Andersen NP | PCP | | + +------+ + Encounter Details +--------+ + + + + | Date | Type | Department | Care Team | Description | +--------+ + + + + | 06/25/ | Hospital | [facility] | Frandy Teresa, | Diabetes mellitus | | 2014 | Encounter | MED CTR OR INTRA OP | DO [address] | ([facility]) (Primary Dx) | | | | [address] | [address] [place], [place] | | | | | [place], [place] | [address] | | | | | [address] | | | | | | [phone] | | | +--------+ + + + [...] 0 | 03/31/20 | | | (ZYPREXA SHANNONIS) 15 | nightly. | | | 12 | 5 | | MG disintegrating | | | | | | | tablet | | | | | | + + + +---------+ + + | [place]-3 Fatty | Take 1,000 mg by | [...] this en counter H&P Notes ONBRUCE ABREU [facility] - 06/21/2014 12:00 AM PDT 14 1:21 [...] Terence Madison MD at 06/26/2014 8:05 AM PDTONBASE SCAN [facility] - 06/26 12:00 AM PDT NBASE SERA N [facility] - 06/26/2014 12:00 AM PDT NBASE SCAN [facility] - 06/12/2014 12:00 AM PDTElectronically signed by Mariah Schulte at 06/12 7:30 AM PDTONBASE SCAN [facility] - 06/11/2014 12:00 AM PDT documented in this encounter Miscellaneous Notes Miscellaneous - ONBASE SCAN [facility] - 06/26/2014 12:00 AM PDT lan of [...] stenosis, lumbar region, without neurogenic claudication ). [employer] Salvage Processor visit is in response to an electronic spiritual care consult request. Patient wa s resting comfortably in bed; she was attended by her mom and dad - both sate nearby and see med very attentive and supportive. Cindy is Zoroastrian, attends [employer], and is strong in her rangel. She is excited about taking care of her back problem and fe els very secure in Dr. Teresa's care. She welcomed prayer, and expressed appreciation for th visit. Follow up with regular visits, emotional and spiritual support. iscellaneo us - ONBASE SCAN [facility] - 06/25/2014 12:00 AM PDTElectronically signed by [...] 126 (L) | 136 - 149 | [facility] | | | | | mmol/L | [...] | mL/min/1.73m2 | [facility] | | | [place] | RATE,ESTIMATED | | MEDICAL | | | | mL/min/1.94f1Qkzz than | | CENTER - | | [...] | | | | | mg/dL | [facility] | | | | | [...] + | [facility] | [address] | [place] | [phone] | | [facility] | | [address] | | | - LABORATORY | | | | + + + + + | [facility] | [address] | [place] | | | [facility] | | [address], [facility] | | | - LABORATORY [...] + | [facility] | [address] | [place] | [phone] | | [facility] | | [address] | | | - LABORATORY | | | | + + + + + | [facility] | [address] | [place], [place] | | | [facility] | | [address], [facility] | | | - LABORATORY [...] | Time | | seconds | [facility] | | | | [...] + | [facility] | [address] | [place] | [phone] | | [facility] | | [address] | | | - LABORATORY | | | | + + + + + | [facility] | [address] | [place] | | | [facility] | | [id number] | | | - LABORATORY | | [...] | + + + + + | [facility] | [address] | [place] | | | [facility] | | [address] | | | - BLOOD BANK | [...] + | [facility] | [address] | [place], [place] | [phone] | | [facility] | | [address] | | | - LABORATORY | | | | + + + + + | [facility] | [address] | [place], [place] | | | [facility] | | [address] [place] [address] | | | - LABORATORY | | [...]
--- OUTSIDE RECORDS SUMMARY | ~2020-07-03 | XMS | Encounter Summary ---
Demographics + + + | Address | [address] [facility] [address] | | | [place] [address] | + + + | Home Phone [...] [place], [place] | | | | | [address] | | + + + + + Care Team Providers + +------+ + | Care Stranding Supervisor Name | Role | Phone | + +------+ + PCP | Unavailable | + +------+ + Encounter Details +--------+ + + + + | Date | Type | Department | Care Team | Description | +--------+ + + + + | 04/01/ | Hospital | [facility] | | | | 1998 | Encounter | MED CTR XRAY [address] | | | | | | [place] | | | | | | [place] [address] | | | | | | [phone] | | | +--------+ + + + [...]
--- OUTSIDE RECORDS SUMMARY | ~2020-07-03 | XMS | Encounter Summary ---
Demographics + + + | Address | [address] [facility] | | | [place] [address] | + + + | Home Phone [...] [place] | | | | | [address] | | + + + + + Care Team Providers + +------+ + | Care Party Demonstrator Name | Role | Phone | [...] + + | 03/07/ | Telephone | [facility] | Katharine Cardona PA-C | Results | | 2014 | | MEDICINE [facility] [place] | [address] [facility] | | | | | [address] | [place] [address] | | | | | [place], [place] | [phone] | | | | | [address] | | | | | | [phone] | | | +--------+ + + + [...] Miscellaneous Notes Telephone Encounter - Adrianne Horton, Ride Attendant - 03/11/2015 3:41 PM PDTCalled Pat and delivered her results. Patient verbalized good understanding. elephone Encounter - Adrianne Horton , Ride Attendant - 03/11/2015 8:40 AM PDTCall placed to Pat to deliver her results. Daxa ent did not answer, left voicemail to call me back. elephone Encounter - Katharine Cardona PA-C - 03/07/20 5:05 PM PDTCall with results. Current labs are fine, continue meds as prescribed. Thanks , LM documented in this en counter Plan of Treatment Not on filedocumented as of this encounter Visit Diagnoses Not on filedocumented in this encounter"
--- OUTSIDE RECORDS SUMMARY | ~2020-07-03 | XMS | Encounter Summary ---
Demographics + + + | Address | [address] [facility] [address] | | | [place] [address] | + + + | Home Phone [...] [place], [place] | | | | | [address] | | + + + + + Care Team Providers + +------+ + | Care Still Operator Name | Role | Phone | + +------+ + PCP | Unavailable | + +------+ + Encounter Details +--------+ + + + + | Date | Type | Department | Care Team | Description | +--------+ + + + + | 04/16/ | Hospital | [facility] | | | | 1997 | Encounter | MED CTR XRAY [address] | | | | | | [place] | | | | | | [place] [address] | | | | | | [phone] | | | +--------+ + + + [...]
--- OUTSIDE RECORDS SUMMARY | ~2020-07-03 | XMS | Encounter Summary ---
Demographics + + + | Address | [address] [facility] | | | [place] [address] | + + + | Home Phone [...] [place] | | | | | [address] | | + + + + + Care Team Providers + +------+ + | Care Physician Surgeon Name | Role | Phone | + +------+ + | Natalee Andersen NP | PCP | | + +------+ + Encounter Details +--------+ + + + + | Date | Type | Department | Care Team | Description | +--------+ + + + + | 07/06/ | Hospital | [facility] | Latricia Feliciano | | | 2014 | Encounter | MED CTR ACUTE | D, PT [address] | | | | | PHYSICAL THERAPY | [place] | | | | | [address] | [address] | | | | | [place] [address] | | | | | | [phone] | | | +--------+ + + + [...] + + + +---------+ + + | [place]-3 Fatty | Take 1,000 mg by | [...]
--- OUTSIDE RECORDS SUMMARY | ~2020-07-03 | XMS | Encounter Summary ---
Demographics + + + | Address | [address] [facility] | | | [place] [address] | + + + | Home Phone [...] [place] | | | | | [address] | | + + + + + Care Team Providers + +------+ + | Care Seismograph Computer Name | Role | Phone | + [...] [place] | | | | | | [address] | | | | | | [phone] | | | +--------+ + + + [...]
--- OUTSIDE RECORDS SUMMARY | ~2020-07-03 | XMS | Encounter Summary ---
Demographics + + + | Address | [address] [address] [facility] | | | [place] [address] | + + + | Home Phone [...] [place] | | | | | [address] | | + + + + + Care Team Providers + +------+ + | Care Pad Hand Name | Role | Phone | + +------+ + PCP | Unavailable | + +------+ + Encounter Details +--------+ + + + + | Date | Type | Department | Care Team | Description | +--------+ + + + + | 01/26/ | Hospital | [facility] | [place], | | | 2011 | Encounter | MED CTR XRAY [address] | MD [address] | | | | | [place] | [place] | | | | | [place] [address] | [address] | | | | | [phone] | | | +--------+ + + + [...] Performed At | + + + | [facility] Diagnostic Imaging Department | [place] | | [address] [facility] | [facility] | | BILATERAL KNEES, THREE VIEWS: [...] Transcribed | | | Date/Time: 01/27/2012 17:18 Flight Engineer Instructor: REBECCA | | | <Electronically Signed by Willie Perry MD> 01/27/12 7134 | | + + + + + | Procedure Note | + + | Juan, Rad Conversion - 11/30/2013 5:03 PM [facility] | | Diagnostic Imaging Department [address] [place] [address] | | BILATERAL KNEES, THREE VIEWS: 01/27/2012 [...] 17:12 | |Transcribed Date/Time: 01/27/2012 17:18 | |Flight Engineer Instructor: | |<Electronically Signed by Willie Perry MD> 01/27/122253 | + + + +---------+ + + [...]
--- OUTSIDE RECORDS SUMMARY | ~2020-07-03 | XMS | Encounter Summary ---
Demographics + + + | Address | [address] [address] [facility] | | | [place] [address] | + + + | Home Phone [...] [place] | | | | | [address] | | + + + + + Care Team Providers + +------+ + | Care Automobile Designer Name | Role | Phone | + +------+ + | Adriano Patrick MD | PCP | | + +------+ + Encounter Details +--------+ + + + + | Date | Type | Department | Care Team | Description | +--------+ + + + + | 05/11/ | Documentati | [facility] | Russell Alfaro PA | | | 2016 | on | SLEEP DISORDER [address] | [address] | | | | | [address] [place] | [place], [place] | | | | | [place] [address] | [address] | | | | | [phone] | | | +--------+ + + + [...] in this enc ounter Plan of Treatment Not on filedocumented as of this encounter Visit Diagnoses Not on filedocumented in this encounter"
--- OUTSIDE RECORDS SUMMARY | ~2020-07-03 | XMS | Encounter Summary ---
Demographics + + + | Address | [address] [facility] | | | [place] [address] | + + + | Home Phone [...] [place] | | | | | [address] | | + + + + + Care Team Providers + +------+ + | Care Factory Assembler Name | Role | Phone | [...] + + | 08/15/ | Documentati | [facility] | Katharine Moncada, | Other (urgent | | 2019 | on | CARDIOLOGY GENESIS | Technologist | report) | | | | [address] | | | | | | [place] | | | | | | [address] | | | | | | [phone] | | | +--------+ + + + [...]
--- OUTSIDE RECORDS SUMMARY | ~2020-07-03 | XMS | Encounter Summary ---
Demographics + + + | Address | [address] [facility] | | | [place] [address] | + + + | Home Phone [...] [place] | | | | | [address] | | + + + + + Care Team Providers + +------+ + | Care Railway Station Manager Name | Role | Phone | [...] + + | 12/17/ | Office | [facility] | Dora De La Torre | History of atrial | | 2020 | Visit | CARDIOLOGY [place] | [address] | fibrillation; Benign | | | | [address] | [address] | essential HTN; | | | | [address] | [place] [address] | History of | | | | [place], [place] | [phone] | hypothyroidism; | | | | [address] | | Stress | | | | [phone] | | hyperglycemia; | | | | | | History of sleep | | | | | | apnea; History of | | | | | | stroke; Obesity, | | | | | | Class III, BMI | | | | | | 40-49.9 (morbid | | | | | | obesity) ([facility]); Mild | | | | | | [...] of fatigue and shortness of breath. Her REC3HT9 VASC score is 4 (stroke, HTN, gender) , and Dr. Peterson did not anticoagulate he r due to low incidence of atrial fib. Her current and previous testing and procedures are detailed below. She was seen in the emergency room on October 11, 2019 at [facility] and presented wi th paranoia feeling that knives were chasing her , so went to the emergency room so that she could feel safe and Had [facility] evaluation and discharged home Labs performed [...] 405 and [facility], and she was to be started on Abilify. She was seen again in the emergency room on October 19 and , [id number] for sim ilar complaints with increased delusions, [...] She has previously seen Dr. Garland in [place], and different provider in [place] when lived over there. She reports she [...] thirst or hunger. Psychiatric/Behavioral: Bipolar/Schizophrenia. Tx'd by [facility] Vaccines: Current on flu vaccine: 2019 Current on pneumonia vaccine:PPSV 23 05/29/2013 Habits/Social : Denies history of smoking. Denies EtOH use. Denies recreational or illici t drug use. Exercises sporadically. Lives in [place] . Outpatient Medications Prior to Visit Medication [...] Take by mouth. Blood Glucose Monitoring Suppl (Retrotope VERIO FLEX SYSTEM) w/Device KIT by Does not ap ply route. budesonide-formoterol (SYMBICORT) 160-4.5 mcg/puff inhaler Inhale 2 puffs into the lung s 2 (two) times daily. calcium carbonate antacid (TUMS ULTRA 1000) 1000 MG CHEW Chew and swallow 1,000 mg 4 ti mes daily as needed. Cholecalciferol (VITAMIN D-3) 94905 units CAPS Take 50,000 Units by mouth [...] nonspecific ST-T wave abnormality rate 82 bpm, CO 176 ms, QRS 80 ms, QTC 446 ms tracing personally reviewed by me EK12/17/2019: Sinus tachycardia, nonspecific ST wave abnormalities, rate 105 bpm, CO 196 ms, QRS 74 ms, QTC 430 ms, tracing personally reviewed by me, and compared to EKG performed in February 2019, rate is less well-controlled LABS Labs: 12/26/2018: ( [facility])CMP: Sodium 139, potassium 4.2, chloride 99, BUN 10, creatinine 0. 7, BNP 28. CBC: WBC 7.8, hemoglobin 14.3, hematocrit 42.7, platelets 214 Labs: 09/28/2019:( [facility]) CBC: WBC 7.8, hemoglobin 14.9, hematocrit 43.8, platelets 221. C MP: Sodium 132, potassium 4.2, chloride 95, AST 76, ALT 76, alk phos 134 Labs: 10/11/2019:( [facility]) CBC: WBC 6.7, RBC 4.97, hemoglobin 15.2, hematocrit 44.7, platel ets 200. CMP: Glucose 385, BUN 7, creatinine 0.62, GFR 97, sodium 131, potassium 4.1, chlor kelby 95, albumin 4.3, total bilirubin 0.6, AST 75, ALT 73, alk phos 144. Thyroid: TSH 4.27 Labs: 10/12/2020:( [facility]) CBC: WBC 7, RBC 4.93, hemoglobin 14.7, hematocrit 44.1, platele ts 186 normal UA CMP: Glucose 381, BUN 6, creatinine 0.63, GFR 95, sodium 133, potassium 3.8 , chloride 97, albumin 4.3, total bili 0.6, AST 62, ALT 75, alk phos 145 thyroid: TSH 3.07 Labs: 10/20/2019:( [facility]) CBC: WBC 7.1, RBC 4.93, hemoglobin [...] in a prescription to her local pharmacy [facility]'s . I made no other [...] Obesity, Class III, BMI 40-49.9 (morbid obesity) ([facility]) 8. Mild hyperlipidemia Orders Placed This Encounter [...] for continuity of care purp osHannah [facility] 12/17/2019 docume nted in this [...] | | | | | | Yesenia ([id number]) on | | | | | | [...]
--- OUTSIDE RECORDS SUMMARY | ~2020-07-03 | XMS | Encounter Summary ---
Demographics + + + | Address | [address] [facility] | | | [place] [address] | + + + | Home Phone [...] [place] | | | | | [address] | | + + + + + Care Team Providers + +------+ + | Care Automobile Brake Bonder Name | Role | Phone | + [...] + + | 05/29/ | Procedure | [facility] | Dora De La Torre | Left bundle branch | | 2020 | visit | CARDIOLOGY [place] | [address] | block; Paroxysmal | | | | [address] | [address] | A-fib ([facility]); | | | | [address] | [place] [address] | Syncope, unspecified | | | | [place], [place] | [phone] | syncope type; Rapid | | | | [address] | | palpitations | | | | [phone] | | | +--------+ + + + [...] information discussed. Instructions given and understood. 12:08pm [id number] signed by Cindy Nicholas CMA at 05/29/2020 [...]
--- OUTSIDE RECORDS SUMMARY | ~2020-07-03 | XMS | Encounter Summary ---
Demographics + + + | Address | [address] [facility] | | | [place] [address] | + + + | Home Phone [...] [place] | | | | | [address] | | + + + + + Care Team Providers + +------+ + | Care Parachute Repairer Name | Role | Phone | [...] + + | 07/08/ | Telephone | [facility] | Frandy Teresa, | Other (post op call | | 2013 | | NEUROSURGERY [address] | DO [address] | ) | | | | [address] [facility] | [address] [place], [place] | | | | | [place], [place] | [id number] | | | | | [address] | | | | | | [phone] | | | +--------+ + + + [...] Aragon Cert MA - 07/08/2014 11:04 [facility] SHAYNE ARAGON documented in this encounter Plan of Treatment Not on filedocumented as of this encounter Visit Diagnoses Not on filedocumented in this encounter"
--- OUTSIDE RECORDS SUMMARY | ~2020-07-03 | XMS | Encounter Summary ---
Demographics + + + | Address | [address] [facility] | | | [place] [address] | + + + | Home Phone [...] [place] | | | | | [address] | | + + + + + Care Team Providers + +------+ + | Care Pharmacist Assistant Name | Role | Phone | [...] + + | 03/06/ | Office | [facility] | Deon Gonzales | ROGERS (obstructive | | 2012 | Visit | SLEEP DISORDER [address] | MD [address] | sleep apnea) | | | | [address] [place] | [address] [place] | (Primary Dx); | | | | [place] [address] | [place] [address] | Sleepiness | | | | [phone] | [phone] | | | | | | | [...] differen t from the original. 03/06/13 1000 Mason Sleepiness Scale Sitting and reading 3 Watching [...] by mouth Daily., Disp: , Rfl: ; [place]-3 Fatty Acids (FISH OIL CONCENTRATE) 1000 MG [...] th is encounter Miscellaneous Notes M[facility] - 03/06/2013 12:00 AM PDT iscellaneous - [facility] - 03/06/2013 12:00 AM PDTEle ctronically [...]
--- OUTSIDE RECORDS SUMMARY | ~2020-07-03 | XMS | Encounter Summary ---
Demographics + + + | Address | [address] [facility] | | | [place] [address] | + + + | Home Phone [...] [place] | | | | | [address] | | + + + + + Care Team Providers + +------+ + | Care Lens Mold Setter Name | Role | Phone | + +------+ + PCP | Unavailable | + +------+ + Encounter Details +--------+ + + + + | Date | Type | Department | Care Team | Description | +--------+ + + + + | 02/02/ | Hospital | [facility] | Serafin Bautista | | | 2011 | Encounter | MED CTR XRAY [address] | T, [address] | | | | | [place] | [address] [place] [address] | | | | | [place] [address] | [address] | | | | | [phone] | | | +--------+ + + + [...] Performed At | + + + | [facility] Diagnostic Imaging Department | MAR[place] TRAN | | [address] [facility] | [facility] | | PROCEDURE: EPIDURAL STEROID [...] Transcribed Date/Time: | | | 02/03/2012 18:45 Flatbed Stitcher: <Electronically Signed | | | by Serafin Bautista MD> 02/14/12 0916 | | + + + + + | Procedure Note | + + | Juan, Rad Conversion - 11/30/2013 5:06 PM [facility] | | Diagnostic Imaging Department | | [address] [facility] | | | | | | | [...] | Transcribed Date/Time: 02/03/2012 18:45 | | Flatbed Stitcher: MAHIN | | <Electronically Signed by Serafin [...]
--- OUTSIDE RECORDS SUMMARY | ~2020-07-03 | XMS | Encounter Summary ---
Demographics + + + | Address | [address] [facility] | | | [place] [address] | + + + | Home Phone [...] [place] | | | | | [address] | | + + + + + Care Team Providers + +------+ + | Care Vp Communications Name | Role | Phone | + +------+ + | Natalee Andersen NP | PCP | | + +------+ + Reason for Visit + +--------+ + | Reason | Onset | Comments | | | Date | | + +--------+ + | Medication Refill | 11/25/ | | | Assistance | 2015 | | + +--------+ + Encounter Details +--------+ + + + + | Date | Type | Department | Care Team | Description | +--------+ + + + + | 11/25/ | Telephone | [facility] | Frandy Teresa, | Medication Refill | | 2014 | | NEUROSURGERY [address] | DO [address] | Assistance | | | | [facility] | [address] [place], [place] | | | | | [place], [place] | [id number] | | | | | [address] | | | | | | [phone] | | | +--------+ + + + [...] get a refill of her pain medication [place] 10-325 mg. I l et her know we are beyond the 90 days after her surgery and refills need to come from [facility]. She requests us to update her PCP. documented in t his encounter Plan of Treatment Not on filedocumented as of this encounter Visit Diagnoses Not on filedocumented in this encounter"
--- OUTSIDE RECORDS SUMMARY | ~2020-07-03 | XMS | Encounter Summary ---
Demographics + + + | Address | [address] [facility] [address] | | | [place] [address] | + + + | Home Phone [...] [place] | | | | | [address] | | + + + + + Care Team Providers + +------+ + | Care Button Inspector Name | Role | Phone | [...] + + | // | Emergency | [facility] | [place], | CVA (cerebral | | 2015 | | MED CTR EMERGENCY | Davey Simons MD [address] | vascular accident) | | | | CENTER [address] | [address] [facility] | ([facility]) (Primary Dx) | | | | [place], [place] | [place] [address] | | | | | [address] | [phone] | | | | | [phone] | | | +--------+ + + + [...] + + + +---------+ + + | Sinclair-3 Fatty | Take 1,000 mg by | [...] might be differe nt from the original. [facility] Emergency Department Encounter Note [address] [place] [address] PCP:Natalee Andersen [phone] CHIEF COMPLAINT: Chief Complaint Patient presents with Facial Droop ED Room: ED07/ED07 [facility] Cindy Arndt is a 59 y.o. female who presents to the Emergency Department accompanied by a friend from [place] for evaluation. The patient recently had symptoms that were diagno sed as stroke or TIA. The symptoms were of a weakness and numbness in her right arm and leg . She was hospitalized for 4 days in [place] for this. She was discharged and subsequent ly has had 2 or 3 emergency department visits in [place] for symptoms diagnosed as TIAs. These have been recurrent and worsening right arm and leg weakness and then today with some right facial drooping and drooling. She is on Aggrenox. She had a full workup in [place] including brain CT, brain MRI, and carotid [...] N/A; Surgeon: Frandy castellanos DO; Location: [facility] MAIN OR CURRENT MEDICATIONS Discharge Medication [...] or Severe Contraindications. Consult references such as Saharey for furthe r information. Magnesium 250 MG [...] or Severe Contraindications. Consult references such as Saharey for further information. Multiple Vitamins-Minerals (CENTRUM SILVER PO) Take 1 tablet by mouth Daily.Historical Med OLANZapine zydis (ZYPREXA ZYDIS) 15 MG disintegrating tablet Take 15 mg by mouth nightly. Sinclair-3 Fatty Acids (FISH OIL CONCENTRATE) 1000 MG [...] review all of her imaging studies from [facility] ED COURSE & MEDICAL DECISION MAKING Pertinent Labs & Imaging studies were reviewed along with EMS notes and [facility] record s if applicable. (See chart for details) Medications and Allergy list reviewed. Nurses note and old records were reviewed The patient was seen and examined, I was finally able to get [facility] which showed a normal MRI and less [...] accident) (HCC) Follow-up Information Follow up with [facility]. Specialty: Emergency Medicine Contact information: [address] [facility] [address] Follow up with [facility]. Specialty: Emergency Medicine Contact information: [address] [facility] [address] Follow up with Natalee Andersen NP. Specialty: Family Nurse Practitioner Contact information: [address] [place] [address] Schedule an appointment as soon as possible for a visit with Baudilio Newman MD. Specialty: Neurology Contact information: [address] [facility] [id number] Discharge Medication List as of 02/26/2015 15:21 Davey Varela MD 02/26/15 1732 do cumented in this encounter Miscellaneous Notes ED Triage Notes - Yesenia Monroy RN - 02/26/2015 1:11 PM PDTC/O right sided facial mahendra op and numbness to right arm and leg onset yesterday at approximately 1800. Pt was seen in [facility] by her primary care physician this morning [...] mL/min/1.73m2 | [facility] | | | Cymro | RATE,ESTIMATED | | MEDICAL | | | | mL/min/1.27a3Lsgm than | | CENTER - | | [...] [address] | [place] | [phone] | | [facility] | | [address] | | | - LABORATORY | | [...] [address] | [place] | [phone] | | [facility] | | [address] | | | - LABORATORY | | [...] | ---- | | | 02/26/2015 13:10 [facility] | | | Emergency -numbness/facial droop 02/26/2015 08:15 [facility] | | | [facility] 02/19/2015 | | [...] status 02/06/2015 10:46 | | | [facility] | | | [...] | --------- 1 0 [facility]. | | | [facility] [address] 6 0 [facility]. | | | [facility] 7 0 Total | [...]
--- OUTSIDE RECORDS SUMMARY | ~2020-07-03 | XMS | Encounter Summary ---
Demographics + + + | Address | [address] [facility] [address] | | | [place] [address] | + + + | Home Phone [...] [place], [place] | | | | | [address] | | + + + + + Care Team Providers + +------+ + | Care Manager Of Corporate Name | Role | Phone | + [...] | | | | | | [address] [facility] | | | | | | [place], [place] | | | | | | [address] | | | | | | [phone] | | | +--------+ + + + [...]
--- OUTSIDE RECORDS SUMMARY | ~2020-07-03 | XMS | Encounter Summary ---
Demographics + + + | Address | [address] [facility] [address] | | | [place] [address] | + + + | Home Phone [...] [place] | | | | | [address] | | + + + + + Care Team Providers + +------+ + | Care Construction Crew Member Name | Role | Phone [...] [address] | [address] [place], [place] | (Primary Dx) | | | | [place], [place] | [address] | | | | | [address] | | | | | | [phone] | | | +--------+ + + + [...] + | MISCELLANEOUS LAB | | | [phone] | + +---------+ + + | MISCELANIOUS LAB | | | [phone] | + +---------+ + + documented in this encounter Visit Diagnoses + + | Diagnosis | + + | Status post lumbar spinal fusion - Primary Arthrodesis status | + + documented in this encounter"
--- OUTSIDE RECORDS SUMMARY | ~2020-07-03 | XMS | Encounter Summary ---
Demographics + + + | Address | [address] [facility] | | | [place] [address] | + + + | Home Phone [...] [place] | | | | | [address] | | + + + + + Care Team Providers + +------+ + | Care Painter Ski Edge Name | Role | Phone | + [...] + + | 05/01/ | Telephone | [facility] | Dora De La Torre | Medication Question | | 2020 | | CARDIOLOGY [place] | [address] | | | | | [address] | [address] | | | | | [address] | [place] [address] | | | | | [place] | [phone] | | | | | [address] | | | | | | [phone] | | | +--------+ + + + [...] La Torre FNP - 05/01/2020 9:05 AM Neelam called jose enrique hayward today to let me [...] to get her diabet es well controlled. cumented in this encounter Plan of Treatment Not on filedocumented as of this encounter Visit Diagnoses Not on filedocumented in this encounter"
--- OUTSIDE RECORDS SUMMARY | ~2020-07-03 | XMS | Encounter Summary ---
Demographics + + + | Address | [address] [facility] | | | [place] [address] | + + + | Home Phone [...] [place] | | | | | [address] | | + + + + + Care Team Providers + +------+ + | Care Assembler Crimper Name | Role | Phone | + [...] | | | | | | | [address] | | | | | | | Phone: | | | | | | | [phone] | | | | | | | Fax: | | | | | | | [phone] | | +--------+ + + + + + Reason for Visit + + + | Reason | Comments | + + + | Follow-up | 4 Week PO | + + + Encounter Details +--------+---------+ + + + | Date | Type | Department | Care Team | Description | +--------+---------+ + + + | 07/25/ | Office | [facility] | Frandy Teresa, | Lumbar spondylosis | | 2013 | Visit | NEUROSURGERY [address] | DO [address] | (Primary Dx); S/P | | | | [address] | [address] [place], [place] | lumbar fusion | | | | [place], [place] | [address] | | | | | [address] | | | | | | [phone] | | | +--------+---------+ + + + [...] original. Frandy Teresa DO [address] [facility] [place] [address] FAX: NEUROSURGERY SURGICAL FOLLOW-UP CHIEF COMPLAINT: Chief [...] Take 15 mg by mouth nightl y. High[place]-3 Fatty Acids (FISH OIL CONCENTRATE) 1000 MG [...] + | MISCELLANEOUS LAB | | | [phone] | + +---------+ + + | MISCELANIOUS LAB | | | [phone] | + +---------+ + + documented in this encounter Visit Diagnoses + + | Diagnosis | + + | Lumbar spondylosis - Primary Lumbosacral spondylosis without myelopathy | + + | S/P lumbar fusion Arthrodesis status | + + documented in this encounter
--- OUTSIDE RECORDS SUMMARY | ~2020-07-03 | XMS | Encounter Summary ---
Demographics + + + | Address | [address] [facility] | | | [place] [address] | + + + | Home Phone [...] [place] | | | | | [address] | | + + + + + Care Team Providers + +------+ + | Care Deputy Insurance Commissioner Name | Role | Phone | + +------+ + | Natalee Andersen NP | PCP | | + +------+ + Encounter Details +--------+ + + + + | Date | Type | Department | Care Team | Description | +--------+ + + + + | 06/25/ | Hospital | [facility] | Latricia Feliciano | | | 2014 | Encounter | MED CTR ACUTE | D, PT [address] | | | | | PHYSICAL THERAPY | NEFTALIE [place] [address]E | | | | | [address] | [address] | | | | | [place] [address] | | | | | | [phone] | | | +--------+ + + + [...] + + + +---------+ + + | [place]-3 Fatty | Take 1,000 mg by [...]
--- OUTSIDE RECORDS SUMMARY | ~2020-07-03 | XMS | Encounter Summary ---
Demographics + + + | Address | [address] [facility] | | | [place] [address] | + + + | Home Phone [...] [place] | | | | | [address] | | + + + + + Care Team Providers + +------+ + | Care Corporate Planner Name | Role | Phone | + +------+ + | Basim Bolanos MD | PCP | | + +------+ + Encounter Details +--------+ + + + + | Date | Type | Department | Care Team | Description | +--------+ + + + + | 03/01/ | Abstract | [facility] [place] | [facility], | | | 2012 | | GASTROENTEROLOGY | [place]O Thomas [address] | | | | | [address] | [address] | | | | | [address] [place], [place] | [place], [place] | | | | | [address] | [address] | | | | | [phone] | | | +--------+ + + + [...]
--- OUTSIDE RECORDS SUMMARY | ~2020-07-03 | XMS | Encounter Summary ---
Demographics + + + | Address | [address] [facility] | | | [place] [address] | + + + | Home Phone [...] [place] | | | | | [address] | | + + + + + Care Team Providers + +------+ + | Care Delivery Stock Clerk Name | Role | Phone | [...] + + | 05/23/ | Telephone | [facility] | Desiree Peterson DO | Chest Pain | | 2020 | | CARDIOLOGY RUGBY | [address] | | | | | [address] | [place], [place] | | | | | [place], [place] | [address] | | | | | [address] | | | | | | [phone] | | | +--------+ + + + [...] Protocols, 4th Edition by Lincoln Cullen MD [facility]. Chest Pain protocol was used. documented in this encounter Plan of Treatment Not on filedocumented as of this encounter Visit Diagnoses Not on filedocumented in this encounter
--- OUTSIDE RECORDS SUMMARY | ~2020-07-03 | XMS | Encounter Summary ---
Demographics + + + | Address | [address] [facility] | | | [place] [address] | + + + | Home Phone [...] [place] | | | | | [address] | | + + + + + Care Team Providers + +------+ + | Care Film Cleaner Name | Role | Phone | [...] + + | 07/10/ | Telephone | [facility] | Frandy Teresa, | Imaging Only (1 year | | 2014 | | NEUROSURGERY [address] | DO [address] | x-ray ) | | | | [address] | [address] [place], [place] | | | | | [place], [place] | [id number] | | | | | [address] | | | | | | [phone] | | | +--------+ + + + [...]
--- OUTSIDE RECORDS SUMMARY | ~2020-07-03 | XMS | Encounter Summary ---
Demographics + + + | Address | [address] [facility] | | | [place] [address] | + + + | Home Phone [...] [place], [place] | | | | | [address] | | + + + + + Care Team Providers + +------+ + | Care Shower Enclosure Installer Name | Role | Phone | + +------+ + PCP | Unavailable | + +------+ + Encounter Details +--------+ + + + + | Date | Type | Department | Care Team | Description | +--------+ + + + + | 03/13/ | Hospital | [facility] | | | | 1996 - | Encounter | MED CTR GENERIC OP | | | | | | CONV DEPT [address] | | | | 03/21/ | | [address] [place], | | | | 1996 | | [place] [address] | | | | | | [phone] | | | +--------+ + + + [...]
--- OUTSIDE RECORDS SUMMARY | ~2020-07-03 | XMS | Encounter Summary ---
Demographics + + + | Address | [address] [facility] | | | [place] [address] | + + + | Home Phone [...] [place] | | | | | [address] | | + + + + + Care Team Providers + +------+ + | Care Strap Stitcher Name | Role | Phone | + +------+ + PCP | Unavailable | + +------+ + Encounter Details +--------+ + + + + | Date | Type | Department | Care Team | Description | +--------+ + + + + | 09/24/ | Hospital | [facility] | | | | 1993 | Encounter | MED CTR LABORATORY | | | | | | [address] | | | | | | [place] | | | | | | [address] | | | | | | [phone] | | | +--------+ + + + [...]
--- OUTSIDE RECORDS SUMMARY | ~2020-07-03 | XMS | Encounter Summary ---
Demographics + + + | Address | [address] [facility] | | | [place] [address] | + + + | Home Phone [...] [place] | | | | | [address] | | + + + + + Care Team Providers + +------+ + | Care Manager Order Name | Role | Phone | + [...] | 09/26/ | Refill | [facility] | Frandy Teresa, | Medication Refill | | 2013 | | NE[address]OS[address] | DO [address] | | | | | [address] [facility] | [address] [place], [place] | | | | | [place], [place] | [id number] | | | | | [address] | | | | | | [phone] | | | +--------+--------+ + + + [...] will come today. rx refill up at [facility] desk elephone Encou nter - Megan Schreiber [...]
--- OUTSIDE RECORDS SUMMARY | ~2020-07-03 | XMS | Encounter Summary ---
Demographics + + + | Address | [address] [facility] | | | [place] [address] | + + + | Home Phone [...] [place] | | | | | [address] | | + + + + + Care Team Providers + +------+ + | Care Violin Tutor Name | Role | Phone | + +------+ + PCP | Unavailable | + +------+ + Encounter Details +--------+ + + + + | Date | Type | Department | Care Team | Description | +--------+ + + + + | 02/16/ | Hospital | [facility] | | | | 1994 | Encounter | MED CTR LABORATORY | | | | | | [address] | | | | | | [place] | | | | | | [address] | | | | | | [phone] | | | +--------+ + + + [...]
--- OUTSIDE RECORDS SUMMARY | ~2020-07-03 | XMS | Encounter Summary ---
Demographics + + + | Address | [address] [facility] | | | [place] [address] | + + + | Home Phone [...] [place], [place] | | | | | [address] | | + + + + + Care Team Providers + +------+ + | Care Copper Miner Name | Role | Phone | + +------+ + PCP | Unavailable | + +------+ + Encounter Details +--------+ + + + + | Date | Type | Department | Care Team | Description | +--------+ + + + + | 02/22/ | Hospital | [facility] | | | | 1996 - | Encounter | MED CTR GENERIC PSY | | | | | | CONV DEPT [address] | | | | 02/26/ | | [address], | | | | 1996 | | [place] [address] | | | | | | [phone] | | | +--------+ + + + [...]
--- OUTSIDE RECORDS SUMMARY | ~2020-07-03 | XMS | Encounter Summary ---
Demographics + + + | Address | [address] [facility] | | | [place] [address] | + + + | Home Phone [...] [place] | | | | | [address] | | + + + + + Care Team Providers + +------+ + | Care Lamp Shade Joiner Name | Role | Phone | + [...] + + | 08/28/ | Telephone | [facility] | Ashley Chávez | Other (Patient has | | 2018 | | CARDIOLOGY [place] Abad, Buyer Tobacco Head | questions about | | | | [address] | | monitor. ) | | | | [place], [place] | | | | | | [address] | | | | | | [phone] | | | +--------+ + + + [...] Miscellaneous Notes Telephone Encounter - Ashley Chávez, Buyer Tobacco Head - 08/28/2019 8:32 AM Rory foster says [...] that if she chooses. Patient stated understanding. CLAYTONW:MANIFEST/ORDER ORGANIZER PRINT ORDERS-AAMA. sandro umented in this encounter Plan of Treatment Not on filedocumented as of this encounter Visit Diagnoses Not on filedocumented in this encounter"
--- OUTSIDE RECORDS SUMMARY | ~2020-07-03 | XMS | Encounter Summary ---
Demographics + + + | Address | [address] [facility] | | | [place] [address] | + + + | Home Phone [...] [place], [place] | | | | | [address] | | + + + + + Care Team Providers + +------+ + | Care Gear Tooth Lapping Machine Operator Name | Role | Phone | + +------+ + PCP | Unavailable | + +------+ + Encounter Details +--------+ + + + + | Date | Type | Department | Care Team | Description | +--------+ + + + + | 06/19/ | Hospital | [facility] | | | | 1991 - | Encounter | MED CTR GENERIC PSY | | | | | | CONV DEPT [address] | | | | 06/24/ | | [address], | | | | 1991 | | [place] [address] | | | | | | [phone] | | | +--------+ + + + [...]
--- OUTSIDE RECORDS SUMMARY | ~2020-07-03 | XMS | Encounter Summary ---
Demographics + + + | Address | [address] [facility] | | | [place] [address] | + + + | Home Phone [...] [place] | | | | | [address] | | + + + + + Care Team Providers + +------+ + | Care Bullard Machine Operator Name | Role | Phone [...] + + | 08/24/ | Documentati | [facility] | Katharine Moncada, | Other (urgent | | 2019 | on | CARDIOLOGY GENESIS | Technologist | report) | | | | [address] | | | | | | [place] | | | | | | [address] | | | | | | [phone] | | | +--------+ + + + [...]
--- OUTSIDE RECORDS SUMMARY | ~2020-07-03 | XMS | Encounter Summary ---
Demographics + + + | Address | [address] [facility] | | | [place] [address] | + + + | Home Phone [...] [place] | | | | | [address] | | + + + + + Care Team Providers + +------+ + | Care Sports Umpire Name | Role | Phone | + [...] 2020 | | CARDIOLOGY [place] | Pollo, Color Maker Formulator | ) | | | | [address] | | | | | | [place] | | | | | | [address] | | | | | | [phone] | | | +--------+ + + + [...] encounter Miscellaneous Notes Telephone Encounter - BrittDora, OPTICAL SCIENTIST - 02/07/2020 3:12 PM PDTI called her [...] . elephone Enco irma - Ashley Chávez, Color Maker Formulator - 02/06/2020 2:53 PM PDTPatient states that [...]
--- OUTSIDE RECORDS SUMMARY | ~2020-07-03 | XMS | Encounter Summary ---
Demographics + + + | Address | [address] [facility] | | | [place] [address] | + + + | Home Phone [...] [place], [place] | | | | | [address] | | + + + + + Care Team Providers + +------+ + | Care Railroader Name | Role | Phone | + +------+ + PCP | Unavailable | + +------+ + Encounter Details +--------+ + + + + | Date | Type | Department | Care Team | Description | +--------+ + + + + | 06/30/ | Hospital | [facility] | | | | 1999 - | Encounter | MED CTR GENERIC PSY | | | | | | CONV DEPT [address] | | | | 07/05/ | | [address], | | | | 1999 | | [place] [address] | | | | | | [phone] | | | +--------+ + + + [...]
--- OUTSIDE RECORDS SUMMARY | ~2020-07-03 | XMS | Encounter Summary ---
Demographics + + + | Address | [address] [facility] | | | [place] [address] | + + + | Home Phone [...] [place] | | | | | [address] | | + + + + + Care Team Providers + +------+ + | Care Head Host/Hostess Name | Role | Phone | + [...] [address] | [address] [place], [place] | fusion | | | | [place], [place] | [address] | | | | | [address] | | | | | | [phone] | | | +--------+ + + + [...]
--- OUTSIDE RECORDS SUMMARY | ~2020-07-03 | XMS | Encounter Summary ---
Demographics + + + | Address | [address] [facility] | | | [place] [address] | + + + | Home Phone [...] + | Araceli Siblye | ECON | [place], [place] | | | | | [address] | | + + + + + Care Team Providers + +------+ + | Care Laboratory Chemist Name | Role | Phone | + +------+ + PCP | Unavailable | + +------+ + Encounter Details +--------+ + + + + | Date | Type | Department | Care Team | Description | +--------+ + + + + | 06/17/ | Hospital | [facility] | | | | 1991 - | Encounter | MED CTR GENERIC PSY | | | | | | CONV DEPT [address] | | | | 06/18/ | | [address], | | | | 1991 | | [place] [address] | | | | | | [phone] | | | +--------+ + + + [...]
--- OUTSIDE RECORDS SUMMARY | ~2020-07-03 | XMS | Encounter Summary ---
Demographics + + + | Address | [address] [facility] | | | [place] [address] | + + + | Home Phone [...] [place] | | | | | [address] | | + + + + + Care Team Providers + +------+ + | Care Marketing Senior Recruiter Name | Role | Phone | + [...] | 03/10/ | Refill | [facility] | Katharine Cardona PA-C | Medication Refill | | 2014 | | MEDICINE [address] [place] | | | | | [place], | [place] [address] | | | | | [place] [address] | [phone] | | | | | [phone] | | | +--------+--------+ + + + [...]
--- OUTSIDE RECORDS SUMMARY | ~2020-07-03 | XMS | Encounter Summary ---
Demographics + + + | Address | [address] [facility] [address] [facility] | | | [place] [address] | + + + | Home Phone [...] [place] | | | | | [address] | | + + + + + Care Team Providers + +------+ + | Care Garment Cutter Name | Role | Phone | [...] + + | 07/06/ | Emergency | [facility] | Yunior Sherman, | Chest pain, | | 2014 | | MED CTR EMERGENCY | [address] | unspecified chest | | | | CENTER [address] | [place], [place] | pain type (Primary | | | | [place], [place] | [address] | Dx) | | | | [address] | | | | | | [phone] | | | +--------+ + + + [...] 0 | | | | (VITAMIN D-3) 75476 | mouth Once a week. | | [...] + + + +---------+ + + | [place]ow-3 Fatty | Take 1,000 mg by | [...] Location: [facility] MAIN OR Cardiac catherization CURRENT [...] mg by mouth Daily. CHOLECALCIFEROL (VITAMIN D-3) 94459 UNITS CAPS Take 50,000 Units by mouth [...] pain. She was recently discharged from a [facility] facility. She's had more than 24 hours [...] [address] | [place] | [phone] | | [facility] | | [address] | | | - LABORATORY | | [...] + | [facility] | [address] | [place] | [phone] | | [facility] | | [address] | | | - LABORATORY | | [...] | | | | | | [employer] | | | | | [...] ST. | [address] | [place], [place] | [phone] | | [facility] | | [address] | | | - LABORATORY | | [...] mL/min/1.73m2 | [facility] | | | [place] | RATE,ESTIMATED | | MEDICAL | | | | mL/min/1.16c2Lkwn than | | CENTER - | | [...] [address] | [place] | [phone] | | [facility] | | [address] | | | - LABORATORY | | [...] + | [facility] | [address] | [place] | [phone] | | [facility] | | [address] | | | - LABORATORY | | [...] | | | | MD NAZARIO JON ([id number]) | | | | | | on [...]
--- OUTSIDE RECORDS SUMMARY | ~2020-07-03 | XMS | Encounter Summary ---
Demographics + + + | Address | [address] [facility] | | | [place] [address] | + + + | Home Phone [...] [place] | | | | | [address] | | + + + + + Care Team Providers + +------+ + | Care Biomedical Repair Technician Name | Role | Phone | [...] + | 07/01/ | Telephone | [facility] | Frandy Teresa, | Other (Surgery ) | | 2013 | | NEUROSURGERY [address] | DO [address] | | | | | [address] | [address] [place], [place] | | | | | [place], [place] | [id number] | | | | | [address] | | | | | | [phone] | | | +--------+ + + + [...]
--- OUTSIDE RECORDS SUMMARY | ~2020-07-03 | XMS | Encounter Summary ---
Demographics + + + | Address | [address] [facility] [address] [facility] [address] [facility] | | | [place] [address] | + + + | Home Phone [...] [place], [place] | | | | | [address] | | + + + + + Care Team Providers + +------+ + | Care Surgical Supply Assistant Name | Role | Phone | + +------+ + PCP | Unavailable | + +------+ + Encounter Details +--------+ + + + + | Date | Type | Department | Care Team | Description | +--------+ + + + + | 12/24/ | Hospital | [facility] | | | | 1998 | Encounter | MED CTR XRAY [address] | | | | | | [place] | | | | | | [place] [address] | | | | | | [phone] | | | +--------+ + + + [...]
--- OUTSIDE RECORDS SUMMARY | ~2020-07-03 | XMS | Encounter Summary ---
Demographics + + + | Address | [address] [facility] [facility] [address] [facility] | | | [place] [address] | + + + | Home Phone [...] [place] | | | | | [address] | | + + + + + Care Team Providers + +------+ + | Care Cement Car Dumper Name | Role | Phone | + [...] [address] | [address] [place], [place] | Hypothyroidism; | | | | [place] | [address] | GERD; BACK PAIN, | | | | [address] | | LUMBAR, WITH | | | | [phone] | | RADICULOPATHY; | | | | [...]
--- OUTSIDE RECORDS SUMMARY | ~2020-07-03 | XMS | Encounter Summary ---
Demographics + + + | Address | [address] [facility] [address] [address] [facility] | | | [place] [address] | + + + | Home Phone [...] [place] | | | | | [address] | | + + + + + Care Team Providers + +------+ + | Care Chief Mechanical Officer Name | Role | Phone | [...] + | 02/21/ | Refill | [facility] | Deon Gonzales | Medication Refill | | 2012 | | SLEEP DISORDER [address] | MD Laureano [address] | | | | | [address] | [address] | | | | | [place] [address] | [place] [address] | | | | | [phone] | [phone] | | | | | | | [...] - 02/22/2013 9:32 AM [facility] documented in this encount er Plan of Treatment Not on filedocumented as of this encounter Visit Diagnoses + + | Diagnosis | + + | Obstructive sleep apnea (adult) (pediatric) - Primary | + + documented in this encounter"
--- OUTSIDE RECORDS SUMMARY | ~2020-07-03 | XMS | Encounter Summary ---
Demographics + + + | Address | [address] [facility] [facility] [address] [facility] | | | [place] [address] | + + + | Home Phone [...] [place] | | | | | [address] | | + + + + + Care Team Providers + +------+ + | Care Booking Police Officer Name | Role | Phone | [...] + + | 08/09/ | Documentati | [facility] | Katharine Moncada, | Other (end of study) | | 2019 | on | CARDIOLOGY CAZEN[place]IA | Technologist | | | | | [address] | | | | | | [place], [place] | | | | | | [address] | | | | | | [phone] | | | +--------+ + + + [...] Technologist - 08/09/2019 11:59 PM PDT Cardiac Oil And Gas Well Treatment Operator Date of Event Monitor: 08/09/19 Referring Physician: [...]
--- OUTSIDE RECORDS SUMMARY | ~2020-07-03 | XMS | Encounter Summary ---
Demographics + + + | Address | [address] [facility] | | | [place] [address] | + + + | Home Phone [...] [place] | | | | | [address] | | + + + + + Care Team Providers + +------+ + | Care Thin Film Technician Name | Role | Phone | [...] [address] | [address] [place], [place] | Anxiety; Anemia; | | | | [place], [place] | [address] | Irregular heartbeat; | | | | [address] | | Depression; | | | | [phone] | | Migraine; | | | | [...]
--- OUTSIDE RECORDS SUMMARY | ~2020-07-03 | XMS | Encounter Summary ---
Demographics + + + | Address | [address] [facility] | | | [place] [address] | + + + | Home Phone [...] [place], [place] | | | | | [address] | | + + + + + Care Team Providers + +------+ + | Care Auto Damage Appraiser Name | Role | Phone | + +------+ + PCP | Unavailable | + +------+ + Encounter Details +--------+ + + + + | Date | Type | Department | Care Team | Description | +--------+ + + + + | 07/23/ | Hospital | [facility] | | | | 1992 - | Encounter | MED CTR GENERIC PSY | | | | | | CONV DEPT [address] | | | | 07/28/ | | [place], | | | | 1992 | | [place] [address] | | | | | | [phone] | | | +--------+ + + + [...]
--- OUTSIDE RECORDS SUMMARY | ~2020-07-03 | XMS | Encounter Summary ---
Demographics + + + | Address | [address] [facility] [facility] [address] [facility] | | | [place] [address] | + + + | Home Phone [...] [place] | | | | | [address] | | + + + + + Care Team Providers + +------+ + | Care Astronomy Department Chair Name | Role | Phone | + +------+ + PCP | Unavailable | + +------+ + Encounter Details +--------+ + + + + | Date | Type | Department | Care Team | Description | +--------+ + + + + | 05/25/ | Hospital | [facility] | | | | 1991 | Encounter | MED CTR LABORATORY | | | | | | [address] | | | | | | [place] | | | | | | [address] | | | | | | [phone] | | | +--------+ + + + [...]
--- OUTSIDE RECORDS SUMMARY | ~2020-07-03 | XMS | Encounter Summary ---
Demographics + + + | Address | [address] [facility] | | | [place] [address] | + + + | Home Phone [...] [place] | | | | | [address] | | + + + + + Care Team Providers + +------+ + | Care Daycare Assistant Name | Role | Phone | + +------+ + PCP | Unavailable | + +------+ + Encounter Details +--------+ + + + + | Date | Type | Department | Care Team | Description | +--------+ + + + + | 10/29/ | Hospital | [facility] | | | | 1994 | Encounter | MED CTR LABORATORY | | | | | | [address] | | | | | | [place] | | | | | | [address] | | | | | | [phone] | | | +--------+ + + + [...]
--- OUTSIDE RECORDS SUMMARY | ~2020-07-03 | XMS | Encounter Summary ---
Demographics + + + | Address | [address] [facility] | | | [place] [address] | + + + | Home Phone [...] [place] | | | | | [address] | | + + + + + Care Team Providers + +------+ + | Care Cable Cutter And Swager Name | Role | Phone | + +------+ + PCP | Unavailable | + +------+ + Encounter Details +--------+ + + + + | Date | Type | Department | Care Team | Description | +--------+ + + + + | 09/23/ | Hospital | [facility] | | | | 1994 | Encounter | MED CTR LABORATORY | | | | | | [address] | | | | | | [place] | | | | | | [address] | | | | | | [phone] | | | +--------+ + + + [...]
--- OUTSIDE RECORDS SUMMARY | ~2020-07-03 | XMS | Encounter Summary ---
Demographics + + + | Address | [address] [facility] [facility] [address] [facility] | | | [place] [address] | + + + | Home Phone [...] [place] | | | | | [address] | | + + + + + Care Team Providers + +------+ + | Care Corrosion Control Technician Name | Role | Phone [...] + + | 02/13/ | Office | [facility] | Roxannmiguel ángelDora | History of atrial | | 2020 | Visit | CARDIOLOGY [place] | [address] | fibrillation | | | | [address] | [address] | (Primary Dx); New | | | | [address] | [place] [address] | onset left bundle | | | | [place], [place] | [phone] | branch block (LBBB); | | | | [address] | | Benign essential | | | | [phone] | | HTN; History of | | [...] | | obesity) ([facility]) | +--------+---------+ + + + Social History [...] 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 Her [id number] VASC score is 4 (stroke, HTN, gender) [...] She has previously seen Dr. Garland in [place], and different sleep provider in [facility] when lived over there. She previously [...] go back to volunteering at the local [employer], though this plan will need to be [...] thirst or hunger. Psychiatric/Behavioral: Bipolar/Schizophrenia. Tx'd by [employer] Vaccines: Current on flu vaccine: 2019 Current on pneumonia vaccine:PPSV 23 05/29/2013 Habits/Social : Denies history of smoking. Denies EtOH use. Denies recreational or illici t drug use. Exercises sporadically. Lives in [place] . Outpatient Medications Prior to Visit Medication [...] by mouth nightly. Blood Glucose Monitoring Suppl ([employer] VERIO FLEX SYSTEM) w/Device KIT by Does [...] nonspecific ST-T wave abnormality rate 82 bpm, VT 176 ms, QRS 80 ms, QTC 446 ms tracing personally reviewed by me EK12/17/2019: Sinus tachycardia, nonspecific ST wave abnormalities, rate 105 bpm, VT 196 ms, QRS 74 ms, QTC 430 ms, tracing personally reviewed by me, and compared to EKG performed in February 2019, rate is less well-controlled EK01/10/2020 (metoprolol XL 50 mg twice daily. Normal sinus rhythm, new left bundle bran ch block Rate 74 bpm, VT 204 ms, QRS 138 ms, QTC 488 [...] bundle branch block. Ra te 105 bpm, VT 184 ms, QRS 144 ms, QTC 489 ms, tracing personally reviewed by me, and compar ed to EKG performed in December , rate is less well-controlled LABS Labs: 12/26/2018: ( [facility])CMP: Sodium 139, potassium 4.2, chloride 99, BUN 10, creatinine 0. 7, BNP 28. CBC: WBC 7.8, hemoglobin 14.3, hematocrit 42.7, platelets 214 Labs: 09/28/2019:( [facility]) CBC: WBC 7.8, hemoglobin 14.9, hematocrit 43.8, platelets 221. C MP: Sodium 132, potassium 4.2, chloride 95, AST 76, ALT 76, alk phos 134 Labs: 10/11/2019:( [facility]) CBC: WBC 6.7, RBC 4.97, hemoglobin 15.2, hematocrit 44.7, platel ets 200. CMP: Glucose 385, BUN 7, creatinine 0.62, GFR 97, sodium 131, potassium 4.1, chlor kelby 95, albumin 4.3, total bilirubin 0.6, AST 75, ALT 73, alk phos 144. Thyroid: TSH 4.27 Labs: 10/12/2020:( [facility]) CBC: WBC 7, RBC 4.93, hemoglobin 14.7, hematocrit 44.1, platele ts 186 normal UA CMP: Glucose 381, BUN 6, creatinine 0.63, GFR 95, sodium 133, potassium 3.8 , chloride 97, albumin 4.3, total bili 0.6, AST 62, ALT 75, alk phos 145 thyroid: TSH 3.07 Labs: 10/20/2019:( [facility]) CBC: WBC 7.1, RBC 4.93, [...] reviewed her EKG and Echo with her meter engineer Dr. Peterson, who was in clin ic [...] BMI 40-49.9 (morbid obesity) ([facility]) Orders Placed This Encounter Procedures ECG 12 [...] continuity of care purp ose Preston BUCIO Located Within [facility]iology 02/15/2020 docume nted in [...] | | | | | DORA VELAZQUEZ ([id number]) on | | | | | | [...]
--- OUTSIDE RECORDS SUMMARY | ~2020-07-03 | XMS | Encounter Summary ---
Demographics + + + | Address | [address] [facility] | | | [place] [address] | + + + | Home Phone [...] [place] | | | | | [address] | | + + + + + Care Team Providers + +------+ + | Care Dog Pound Attendant Name | Role | Phone | [...] + + | 06/12/ | Office | [facility] | Chris Nicole, | Spondylisthesis | | 2013 | Visit | NEUROSURGERY [address] | PA-C [address] | (Primary Dx); | | | | [address] | [place], [place] | Radiculopathy of | | | | [place], [place] | [address] | leg; Lumbar spine | | | | [address] | | instability; Lumbar | | | | [phone] | | spondylosis; | | | | [...] rom the original. ZANE Castillo [address] [facility] [place], [place] [id number] FAX: NEUROSURGERY HISTORY AND PHYSICAL EXAMINATION CHIEF [...] Take 15 mg by mouth nightl y. [place]-3 Fatty Acids (FISH OIL CONCENTRATE) 1000 MG [...] no apparent deficits with short or termite treater helper memory. CRANIAL NERVES: II: Acuity is [...] Intrinsics 5 5 Ulnar Intrinsics 5 5 Retail Presentation Specialist Strength 5 5 Hip Flexion 5 [...]
--- OUTSIDE RECORDS SUMMARY | ~2020-07-03 | XMS | Encounter Summary ---
Demographics + + + | Address | [address] [facility] [address] [facility] | | | [place] [address] | + + + | Home Phone [...] [place] | | | | | [address] | | + + + + + Care Team Providers + +------+ + | Care Marketing Traffic Coordinator Name | Role | Phone [...] + | 02/01/ | Telephone | [facility] | Frandy Teresa, | Imaging Only | | 2018 | | NEUROSURGERY [address] | DO [address] | | | | | [address] | [address] [place], [place] | | | | | [place], [place] | [id number] | | | | | [address] | | | | | | [phone] | | | +--------+ + + + [...]
--- OUTSIDE RECORDS SUMMARY | ~2020-07-03 | XMS | Encounter Summary ---
Demographics + + + | Address | [address] [facility] | | | [place] [address] | + + + | Home Phone [...] [place] | | | | | [address] | | + + + + + Care Team Providers + +------+ + | Care Business Unit Director Name | Role | Phone | + +------+ + | Adriano Patrick MD | PCP | | + +------+ + Encounter Details +--------+ + + + + | Date | Type | Department | Care Team | Description | +--------+ + + + + | 06/10/ | Abstract | [facility] | Thierry Fry | | | 2014 | | MEDICINE [address] | MD Lisa [address] | | | | [address] [place], | [place], [place] | | | | | [place] [address] | [address] | | | | | [phone] | | | +--------+ + + + [...]
--- OUTSIDE RECORDS SUMMARY | ~2020-07-03 | XMS | Encounter Summary ---
Demographics + + + | Address | [address] [facility] | | | [place] [address] | + + + | Home Phone [...] [place], [place] | | | | | [address] | | + + + + + Care Team Providers + +------+ + | Care Die Machine Operator Name | Role | Phone | + +------+ + PCP | Unavailable | + +------+ + Encounter Details +--------+ + + + + | Date | Type | Department | Care Team | Description | +--------+ + + + + | 07/17/ | Hospital | [facility] | | | | 1997 - | Encounter | MED CTR GENERIC PSY | | | | | | CONV DEPT [address] | | | | 07/25/ | | [address] [place], | | | | 1997 | | [place] [address] | | | | | | [phone] | | | +--------+ + + + [...]
--- OUTSIDE RECORDS SUMMARY | ~2020-07-03 | XMS | Encounter Summary ---
Demographics + + + | Address | [address] [facility] | | | [place] [address] | + + + | Home Phone [...] [place] | | | | | [address] | | + + + + + Care Team Providers + +------+ + | Care Parimutuel Ticket Cashier Name | Role | Phone | [...] | 12/03/ | Refill | [facility] | Frandy Teresa, | Medication Refill | | 2014 | | NEUROSURGERY [address] | DO [address] | | | | | [address] [facility] [address] | [address] [place], [place] | | | | | [place], [place] | [id number] | | | | | [address] | | | | | | [phone] | | | +--------+--------+ + + + [...] Art Andersen NP Chart notes faxed to [phone] along with medication list. Sent request to update contac t information in [facility] Kathy @ [facility] Support Team documented in this encounter Plan of Treatment Not on filedocumented as of this encounter Visit Diagnoses Not on filedocumented in this encounter"
--- OUTSIDE RECORDS SUMMARY | ~2020-07-03 | XMS | Encounter Summary ---
Demographics + + + | Address | [address] [facility] | | | [place] [address] | + + + | Home Phone [...] [place] | | | | | [address] | | + + + + + Care Team Providers + +------+ + | Care Factory Manager Name | Role | Phone | [...] Closed | | Radiology | Diagnoses | [place], | | | | | | Thoracic or | Natalee L, | | | | | | lumbosacral | HEALTH AND SAFETY COORDINATOR [address] | | | | | | neuritis or | [address] | | | | | | | [address] | | | | | | radiculitis, | [place], | | | | | | unspecified | [place] [address] | | | | | | | Phone: | | | | | | Degeneration | [phone] | | | | | | of lumbar | Fax: | | | | | | or | [phone] | | | | | | lumbosacral [...] + + | 03/11/ | Hospital | [facility] | Natalee Andersen | Thoracic or | | 2013 | Encounter | MED CTR MRI [address] | L, HEALTH AND SAFETY COORDINATOR [address] | lumbosacral neuritis | | | | [place], | [address] | or radiculitis, | | | | [place] [address] | [place] [address] | unspecified; | | | | [phone] | [phone] | Degeneration of | | | | [...] + + + +---------+ + + | [place]-3 Fatty | Take 1,000 mg by | [...] encounter Miscellaneous Notes Miscellaneous - ONBASE SCAN [facility] - 03/20/2014 12:00 AM PDT [...] + | MISCELLANEOUS LAB | | | [phone] | + +---------+ + + | MISCELANIOUS LAB | | | [phone] | + +---------+ + + documented in this encounter Visit Diagnoses + + | Diagnosis | + + | Thoracic or lumbosacral neuritis or radiculitis, unspecified | + + | Degeneration of lumbar or lumbosacral intervertebral disc | + + documented in this encounter"
--- OUTSIDE RECORDS SUMMARY | ~2020-07-03 | XMS | Encounter Summary ---
Demographics + + + | Address | [address] [facility] | | | [place] [address] | + + + | Home Phone [...] + + + | Author | [facility] | + + + | Organization | [facility] | + + + | Address | Unknown | + + + | Phone | Unavailable | + + + Support + + + + + | Name | Relationship | Address | Phone | + + + + + | Kelsy Bautista | E[address] | [address] | | | | | [place] | | | | | [address] | | + + + + + Care Team Providers + +------+ + | Care Cracking Machine Operator Name | Role | Phone [...] | | | | | | [place] [address] | | | | | | [phone] | | | | | | | [...] | | | | | | [facility] | | | | | [...] | | | | | | [facility] | | | | | | Laboratory, [place], | | | | | | [place], delivered | | | | | | [...] by | | | | | | vngcxtyhZnn-Rzc-Y: | | | | | | Increased [...] istryMHC-1: | | | | | | [id number] stain | | | | | | [...] + + | [facility] | [address] | [place] [address] | | | PATHOLOGY | [address] | | | + + + + + documented in this encounter Visit Diagnoses Not on filedocumented in this encounter
--- OUTSIDE RECORDS SUMMARY | ~2020-07-03 | XMS | Encounter Summary ---
Demographics + + + | Address | [address] [facility] | | | [place] [address] | + + + | Home Phone [...] [place] | | | | | [address] | | + + + + + Care Team Providers + +------+ + | Care Outpatient Case Manager Name | Role | Phone | [...] [place] | | | | | | [address] | | | | | | [phone] | | | +--------+ + + + [...]
--- OUTSIDE RECORDS SUMMARY | ~2020-07-03 | XMS | Encounter Summary ---
Demographics + + + | Address | [address] [facility] | | | [place] [address] | + + + | Home Phone [...] [place] | | | | | [address] | | + + + + + Care Team Providers + +------+ + | Care Forging Press Operator Name | Role | Phone | + +------+ + PCP | Unavailable | + +------+ + Encounter Details +--------+ + + + + | Date | Type | Department | Care Team | Description | +--------+ + + + + | 01/06/ | Hospital | [facility] | | | | 1992 | Encounter | MED CTR LABORATORY | | | | | | [address] | | | | | | [place] | | | | | | [address] | | | | | | [phone] | | | +--------+ + + + [...]
--- OUTSIDE RECORDS SUMMARY | ~2020-07-03 | XMS | Encounter Summary ---
Demographics + + + | Address | [address] [facility] | | | [place] [address] | + + + | Home Phone [...] [place] | | | | | [address] | | + + + + + Care Team Providers + +------+ + | Care General Forecaster Name | Role | Phone | + [...] [place] | | | | | | [address] | | | | | | [phone] | | | +--------+ + + + [...]
--- OUTSIDE RECORDS SUMMARY | ~2020-07-03 | XMS | Encounter Summary ---
Demographics + + + | Address | [address] [facility] | | | [place] [address] | + + + | Home Phone [...] [place] | | | | | [address] | | + + + + + Care Team Providers + +------+ + | Care Construction Executive Name | Role | Phone | + +------+ + | Adriano Patrick MD | PCP | | + +------+ + Encounter Details +--------+ + + + + | Date | Type | Department | Care Team | Description | +--------+ + + + + | 05/16/ | Orders Only | [facility] | Provider, | | | 2018 | | SYSTEM GENERIC OP | MD [address] | | | | | [address] | [address] | | | | | [address] [place], [place] | [place] [address] | | | | | [address] | | | | | | [phone] | | | +--------+ + + + [...]
--- OUTSIDE RECORDS SUMMARY | ~2020-07-03 | XMS | Encounter Summary ---
Demographics + + + | Address | [address] [facility] | | | [place] [address] | + + + | Home Phone [...] [place] | | | | | [address] | | + + + + + Care Team Providers + +------+ + | Care Chief Quality Officer Name | Role | Phone | + +------+ + PCP | Unavailable | + +------+ + Encounter Details +--------+ + + + + | Date | Type | Department | Care Team | Description | +--------+ + + + + | 12/27/ | Hospital | [facility] | | | | 1995 | Encounter | MED CTR LABORATORY | | | | | | [address] | | | | | | [place] | | | | | | [address] | | | | | | [phone] | | | +--------+ + + + [...]
--- OUTSIDE RECORDS SUMMARY | ~2020-07-03 | XMS | Encounter Summary ---
Demographics + + + | Address | [address] [facility] | | | [place] [address] | + + + | Home Phone [...] [place] | | | | | [address] | | + + + + + Care Team Providers + +------+ + | Care Outside Sales Professional Name | Role | Phone [...] | | | | | [address] | [place], [place] | | | | | | Complete | [address] | | | | | | | Phone: | | | | | | | [phone] | | | | | | | Fax: | | | | | | | [phone] | | + +--------+ + + + [...] | [address] | [place], [place] | Benign essential | | | | [address] | [address] | HTN; New onset left | | | | [place], [place] | | bundle branch block | | | | [address] | | (LBBB); Obesity, | | | | [phone] | | Class III, BMI | | [...] Peterson DO - 04/03/2020 10:20 AM PDT [facility] Cardiology Follow Up Note Reason for [...] rtake in exercise. She recently got a [place] and has been walking him more regularly. 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 Blood Glucose Monitoring Suppl (HeadplayIO FLEX SYSTEM) w/Device KIT by Does not ap ply route. budesonide-formoterol (SYMBICORT) 160-4.5 MCG/ACT inhaler Inhale 2 puffs into the lungs 2 (two) times daily. Calcium Carbonate Antacid 1000 MG tablet Take 1,000 mg by mouth 3 (three) times daily. Cholecalciferol (VITAMIN D3) 44083 units CAPS Take by mouth once a [...] ALT 76, alkaline phosphatase 134. Labs: 10/20/2019:( [facility]) CBC: WBC 7.1, RBC [...]
--- OUTSIDE RECORDS SUMMARY | ~2020-07-03 | XMS | Encounter Summary ---
Demographics + + + | Address | [address] [facility] | | | [place] [address] | + + + | Home Phone [...] [place] | | | | | [address] | | + + + + + Care Team Providers + +------+ + | Care On Site Nurse Name | Role | Phone | + +------+ + | Hari Samson DO | PCP | | + +------+ + Encounter Details +--------+ + + + + | Date | Type | Department | Care Team | Description | +--------+ + + + + | 06/12/ | Hospital | [facility] | Frandy Teresa, | No Show | | 2014 | Encounter | MED CTR | DO [address] | | | | | ELECTRODIAGNOSTICS | [address] [place], [place] | | | | | [address] [place] | [address] | | | | | [place] [address] | | | | | | [phone] | | | +--------+ + + + [...]
--- OUTSIDE RECORDS SUMMARY | ~2020-07-03 | XMS | Encounter Summary ---
Demographics + + + | Address | [address] [facility] | | | [place] [address] | + + + | Home Phone [...] [place] | | | | | [address] | | + + + + + Care Team Providers + +------+ + | Care Lead Network Architect Name | Role | Phone | [...] + + | 07/24/ | Telephone | [facility] | Ashley Chávez | Other (Patient is | | 2018 | | CARDIOLOGY GENESIS Abad, Form Layer | worried about paying | | | | [address] | | for monitor. ) | | | | [place] | | | | | | [address] | | | | | | [phone] | | | +--------+ + + + [...] Notes Telephone Encounter - Ashley Chávez, Form Layer - 07/24/2019 11:13 AM MELANIEPatigutierrez t says [...] gals to see what can be done. JKASSIE:HAND SPINNER-AAMA. doc umented in this encounter Plan of Treatment Not on filedocumented as of this encounter Visit Diagnoses Not on filedocumented in this encounter"
--- OUTSIDE RECORDS SUMMARY | ~2020-07-03 | XMS | Encounter Summary ---
Demographics + + + | Address | [address] [facility] | | | [place] [address] | + + + | Home Phone [...] [place] | | | | | [address] | | + + + + + Care Team Providers + +------+ + | Care Software Validation Technician Name | Role | Phone | [...] + | 07/29/ | Telephone | [facility] | Frnady Cagle, | Other (multiple | | 2013 | | NEUROSURGERY [address] | DO [address] | questions) | | | | [facility] | [address] [place], [place] | | | | | [place], [place] | [id number] | | | | | [address] | | | | | | [phone] | | | +--------+ + + + [...] and I might get a repeat MRI. Murphy ordered. Thanks. ddendum Note - Shayne Aragon [...] - 07/29/2014 11:19 AM PDTCall [facility]. [...] refill be mailed to her for her Murphy 10/325mg which was given to her on [...]
--- OUTSIDE RECORDS SUMMARY | ~2020-07-03 | XMS | Encounter Summary ---
Demographics + + + | Address | [address] [facility] | | | [place] [address] | + + + | Home Phone [...] [place] | | | | | [address] | | + + + + + Care Team Providers + +------+ + | Care Material Distributor Name | Role | Phone | + +------+ + | Basim Bolanos MD | PCP | | + +------+ + Encounter Details +--------+ + + + + | Date | Type | Department | Care Team | Description | +--------+ + + + + | 04/18/ | Abstract | [facility] [place] | [facility], | | | 2012 | | GASTROENTEROLOGY | [place]O [address] | | | | | [address] [place] | [address] | | | | | [address] [place], [place] | [place], [place] | | | | | [address] | [address] | | | | | [phone] | | | +--------+ + + + [...]
--- OUTSIDE RECORDS SUMMARY | ~2020-07-03 | XMS | Encounter Summary ---
Demographics + + + | Address | [address] [facility] [address] | | | [place] [address] | + + + | Home Phone [...] [place] | | | | | [address] | | + + + + + Care Team Providers + +------+ + | Care Stone Cleaner Name | Role | Phone | [...] + | 01/02/ | Telephone | [facility] | Frandy Teresa, | Other (6m x-ray ) | | 2014 | | NEUROSURGERY [address] | DO [address] | | | | | [address] | [address] [place], [place] | | | | | [place], [place] | [id number] | | | | | [address] | | | | | | [phone] | | | +--------+ + + + [...] for review. The order was faxed to [facility] today. She will let us know when this has been completed. SHAYNE ARAGON documented in this encounter Plan of Treatment Not on filedocumented as of this encounter Visit Diagnoses Not on filedocumented in this encounter"
--- OUTSIDE RECORDS SUMMARY | ~2020-07-03 | XMS | Encounter Summary ---
Demographics + + + | Address | [address] [facility] [address] | | | [place] [address] | + + + | Home Phone [...] [place], [place] | | | | | [address] | | + + + + + Care Team Providers + +------+ + | Care Lead Janitor Name | Role | Phone | + +------+ + PCP | Unavailable | + +------+ + Encounter Details +--------+ + + + + | Date | Type | Department | Care Team | Description | +--------+ + + + + | 06/23/ | Hospital | [facility] | | | | 1999 | Encounter | MED CTR GENERIC OP | | | | | | CONV DEPT [address] | | | | | | [place], | | | | | | [place] [address] | | | | | | [phone] | | | +--------+ + + + [...]
--- OUTSIDE RECORDS SUMMARY | ~2020-07-03 | XMS | Encounter Summary ---
Demographics + + + | Address | [address] [facility] [address] | | | [place] [address] | + + + | Home Phone [...] [place] | | | | | [address] | | + + + + + Care Team Providers + +------+ + | Care Insurance Commissioner Name | Role | Phone [...] + | 08/15/ | Documentati | [facility] | Katharine Moncada, | Other (urgent | | 2019 | on | CARDIOLOGY GENESIS | Technologist | report) | | | | [address] | | | | | | [place] | | | | | | [address] | | | | | | [phone] | | | +--------+ + + + [...]
--- OUTSIDE RECORDS SUMMARY | ~2020-07-03 | XMS | Encounter Summary ---
Demographics + + + | Address | [address] [facility] [address] | | | [place] [address] | + + + | Home Phone [...] [place] | | | | | [address] | | + + + + + Care Team Providers + +------+ + | Care Project Management Advisor Name | Role | Phone | + +------+ + PCP | Unavailable | + +------+ + Encounter Details +--------+ + + + + | Date | Type | Department | Care Team | Description | +--------+ + + + + | 02/24/ | Hospital | [facility] | | | | 1997 | Encounter | MED CTR EMERGENCY | | | | | | CENTER [address] | | | | | | [place] | | | | | | [address] | | | | | | [phone] | | | +--------+ + + + [...]
--- OUTSIDE RECORDS SUMMARY | ~2020-07-03 | XMS | Encounter Summary ---
Demographics + + + | Address | [address] [facility] | | | [place] [address] | + + + | Home Phone [...] [place] | | | | | [address] | | + + + + + Care Team Providers + +------+ + | Care Electro Mechanic Name | Role | Phone | [...] + | 08/20/ | Documentati | [facility] | Katharine Moncada, | Other (urgent | | 2019 | on | CARDIOLOGY GENESIS | Technologist | report) | | | | [address] | | | | | | [place] | | | | | | [address] | | | | | | [phone] | | | +--------+ + + + [...]
--- OUTSIDE RECORDS SUMMARY | ~2020-07-03 | XMS | Encounter Summary ---
Demographics + + + | Address | [address] [facility] | | | [place] [address] | + + + | Home Phone [...] [place], [place] | | | | | [address] | | + + + + + Care Team Providers + +------+ + | Care Chip Mixer Name | Role | Phone | + +------+ + PCP | Unavailable | + +------+ + Encounter Details +--------+ + + + + | Date | Type | Department | Care Team | Description | +--------+ + + + + | 06/07/ | Hospital | [facility] | | | | 1991 - | Encounter | MED CTR GENERIC OP | | | | | | CONV DEPT [address] | | | | 10/07/ | | [place], | | | | 1991 | | [place] [address] | | | | | | [phone] | | | +--------+ + + + [...]
--- OUTSIDE RECORDS SUMMARY | ~2020-07-03 | XMS | Encounter Summary ---
Demographics + + + | Address | [address] [facility] | | | [place] [address] | + + + | Home Phone [...] [place] | | | | | [address] | | + + + + + Care Team Providers + +------+ + | Care Customer Development Representative Name | Role | Phone | [...] + + | 09/10/ | Documentati | [facility] | Katharine Moncada, | Other (urgent | | 2019 | on | CARDIOLOGY GENESIS | Technologist | report) | | | | [address] | | | | | | [place] | | | | | | [address] | | | | | | [phone] | | | +--------+ + + + [...]
--- OUTSIDE RECORDS SUMMARY | ~2020-07-03 | XMS | Encounter Summary ---
Demographics + + + | Address | [address] [facility] | | | [place] [address] | + + + | Home Phone [...] [place] | | | | | [address] | | + + + + + Care Team Providers + +------+ + | Care Supervisor Ticket Sales Name | Role | Phone | + +------+ + | Thierry Fry MD | PCP | | + +------+ + Encounter Details +--------+ + + + + | Date | Type | Department | Care Team | Description | +--------+ + + + + | 03/06/ | Hospital | [facility] | Katharine Cardona PA-C | Essential | | 2015 | Encounter | MED CTR LABORATORY | [address] | hypertension | | | | [address] [place] | [place] [address] | | | | | [place], [place] | [phone] | | | | | [address] | | | | | | [phone] | | | +--------+ + + + [...] 0 | | | | (VITAMIN D-3) [address] | mouth Once a week. | | [...] + + + +---------+ + + | [place]-3 Fatty | Take 1,000 mg by | 60 each | 5 | 03/09/20 | | | Acids (FISH OIL | mouth 2 times daily. | | | 15 | 9 | | CONCENTRATE) 1000 MG | | | | | | | CAPS | | | | | | + + + +---------+ + + | [place]-3 Fatty | Take 1,000 mg by | [...] | 0.66 | 0.60 - 1.30 | [facility] | | | | | mg/dL | [facility] | | | | | | MEDICAL | | | | | | CENTER - | | | | | | LABORATORY | | + + + + + + | eGFR, | >60Comment: GLOMERULAR | >=60 | [facility] | | | non- | FILTRATION | mL/min/1.73m2 | [facility] | | | Nepalese | RATE,ESTIMATED | | MEDICAL | | | | mL/min/1.37z6Tshn than | | CENTER - | | [...] ST. | [address] | [place], [place] | [phone] | | [facility] | | [address] | | | - LABORATORY | | | | + + + + + documented in this encounter Visit Diagnoses + + | Diagnosis | + + | Essential hypertension Unspecified essential hypertension | + + documented in this encounter"
--- OUTSIDE RECORDS SUMMARY | ~2020-07-03 | XMS | Encounter Summary ---
Demographics + + + | Address | [address] [facility] [facility] [facility] | | | [place] [address] | + + + | Home Phone [...] [place] | | | | | [address] | | + + + + + Care Team Providers + +------+ + | Care Landscape Horticulture Instructor Name | Role | Phone | + +------+ + | Basim Bolanos MD | PCP | | + +------+ + Encounter Details +--------+ + + + + | Date | Type | Department | Care Team | Description | +--------+ + + + + | 01/24/ | Abstract | [facility] [place] | [facility], | | | 2012 | | GASTROENTEROLOGY | [address]UNATO [address] | | | | | [address] | [address] | | | | | [address] [place], [place] | [place], [place] | | | | | [address] | [address] | | | | | [phone] | | | +--------+ + + + [...]
--- OUTSIDE RECORDS SUMMARY | ~2020-07-03 | XMS | Encounter Summary ---
Demographics + + + | Address | [address] [facility] | | | [place] [address] | + + + | Home Phone [...] [place] | | | | | [address] | | + + + + + [...] | 05/13/ | Telephone | [facility] [place] | Frandy Teresa, | Other | | 2013 | | NEUROSURGERY [address] | DO [address] | | | | | [address] | [address] [place], [place] | | | | | [place], [place] | [id number] | | | | | [address] | | | | | | [phone] | | | +--------+ + + + [...]
--- OUTSIDE RECORDS SUMMARY | ~2020-07-03 | XMS | Encounter Summary ---
Demographics + + + | Address | [address] [facility] | | | [place] [address] | + + + | Home Phone [...] [place] | | | | | [address] | | + + + + + Care Team Providers + +------+ + | Care Digital Marketing Specialist Name | Role | Phone [...] | Services | ogy | Epigastric | [facility], | Tyrese Shelley MD | | | Required | | abdominal | [place], | [address], | | | | | pain GERD | TELLER SUPERVISOR [address] | [address] | | | | | (gastroesoph | [address] | [place], | | | | | ageal reflux | [address] | [place] [address] | | | | | disease) | [place], | Phone: | | | | | Fatty liver | [place] [address] | [phone] | | | | | DM | Phone: | Fax: | | | | | (diabetes | [phone] | [phone] | | | | | mellitus) | Fax: | | | | | | (HCC) | [phone] | | +--------+ + + + + + Reason for Visit + + + | Reason | Comments | + + + | Gastroesophageal | epigastric pain | | Reflux | | + + + Encounter Details +--------+---------+ + + + | Date | Type | Department | Care Team | Description | +--------+---------+ + + + | 03/06/ | Office | [facility] | [facility], | Epigastric abdominal | | 2012 | Visit | GASTROENTEROLOGY | [address]O [address] | pain (Primary Dx); | | | | [address] | [address] | GERD | | | | [address] [place], [place] | [place] | (gastroesophageal | | | | [address] | [address] | reflux disease); | | | | [phone] | | Fatty liver; DM | | [...] ago by Dr. Saravanan Tsai, in [facility]. Colonoscopy was done 05/[address] Hamlin in [facility]. Allergies Allergen Reactions Demerol Duloxetine Erythromycin [...] 04/09/2013 9:48 AM PDTMiscellaneous - ONBASE SCAN [facility] T - 03/06/2013 12:00 AM PDT d [...]
--- OUTSIDE RECORDS SUMMARY | ~2020-07-03 | XMS | Clinical Summary ---
Demographics + + + | Address | [address] [facility] | | | [place] [address] | + + + | Home Phone [...] [place] | | | | | [address] | | + + + + + Care Team Providers + +------+ + | Care Systems Planner Name | Role | Phone | [...] | | | | e | | ([employer] VERIO FLEX | | | | | [...] | | | | | | A-fib ([facility]); | | | | | | Syncope, [...] (Cancel | 2019 | | | Vanessa, [employer]BER | appointment) | +--------+ + + + [...] A-fib | | | | | | ([facility]); Mild | | | | | | hyperlipidemia; | | | | | | Benign essential | | | | | | HTN; Poorly | | | | | | controlled type 2 | | | | | | diabetes mellitus | | | | | | ([facility]); Syncope, | | | | | | [...] | | | | | | type ([facility]); Rapid | | | | | | [...] | [employer] - | | 04/02/ | [id number] | | 5ccImplanted: Qty: 1 on | | Spine | MEDT | | 2019 | | | 07/02/2014 by Frandy Teresa | | Lumbar | | | | /[id number] | | DO Ronak at [facility] | | | | | | 6-020 | | [facility] | | | | | | / | + +------+--------+ +--------+--------+--------+ | Graft Infuse Bone Kit Xxs - | | N/A: | [facility] | | 01/21/ | [id number] | | [id number]: Qty: 1 on | | Spine | DANEK - DIV | | 2014 | 0 / | | 07/02/2014 by Frandy Teresa | | Lumbar | [employer] | | | /[id number] | | A, DO at [facility] | | | - SFDK | | | 06AAH | | [facility] | | | | | | | + +------+--------+ +--------+--------+--------+ | Imp Spn Spcr Cpstn 8x26mm - | | N/A: | [facility] | | 01/11/ | [id number] | | [id number]: Qty: 1 on | | Spine | DANEK - DIV | | 2021 | 6 / | | 07/02/2014 by Frandy Teresa | | Lumbar | [employer] | | | /[id number] | | A, DO at [facility] | | | - SFDK | | | 928 | | [facility] | | | | | | | + +------+--------+ +--------+--------+--------+ | Set Scrw Ns G5 Brk Off Ti | | N/A: | [facility]OR | | | [id number] | | 4.75 - [id number]: | | Spine | DANEK - DIV | | | 0 / / | | Qty: 4 on 07/02/2014 by | | Lumbar | [employer] | | | | | Frandy Teresa DO at [facility] | | | - SFDK | | | | | [facility] | | | | | | | | [facility] | | | | | | | + +------+--------+ +--------+--------+--------+ | RodImplanted: Qty: 1 on | | N/A: | | | | [id number] | | 07/02/2014 by Frandy Teresa | | Spine | | | | 540 / | | DO Ronak at [facility] | | Lumbar | | | | / | | [facility] | | | | | | | + +------+--------+ +--------+--------+--------+ | RodImplanted: Qty: 1 on | | N/A: | MEDTROL - | | | [id number] | | 07/02/2014 by Frandy Teresa | | Spine | MDTR | | | 545 / | | DO Ronak at [facility] | | Lumbar | | | | / | | [facility] | | | | | | | + +------+--------+ +--------+--------+--------+ | Screw 7.5x50mm Sextant - | | N/A: | [employer] - | | | [id number] | | [id number]: Qty: 1 on | | Spine | MEDT | | | [id number] | | 07/02/2014 by Frandy Teresa | | Lumbar | | | | / / | | DO Ronak at [facility] | | | | | | | | [facility] | | | | | | | + +------+--------+ +--------+--------+--------+ | Cannulated ScrewImplanted: | | N/A: | MEDTROL - | | | [id number] | | Qty: 1 on 07/02/2014 by | | Spine | MDTR | | | [id number] | | Frandy Teresa DO at [facility] | | Lumbar | | | | / / | | [facility] | | | | | | | | [facility]ENTER | | | | | | | + +------+--------+ +--------+--------+--------+ | Cannulated ScrewImplanted: | | N/A: | [employer]IC - | | | [id number] | | Qty: 1 on 07/02/2014 by | | Spine | MEDT | | | [id number] | | Frandy Teresa DO at [facility] | | Lumbar | | | | / / | | [facility] | | | | | | [...] | | | | | DESIREE DONNELLY (6330) on | | | | | | [...] +--------+ +---------+--------+ | MEDICARE | MEDICA | [id number] | 02/22/20 | [phone] | | Medica | | | RE | | 09-Pre | 5 | | re | | | PART A | | sent | | | | | | AND B | | | | | | + +--------+ +--------+ +---------+--------+ | MEDICARE | MEDICA | [id number] | 02/22/20 | [phone] | | Medica [...] [place] | | | 1 (Home) | [address] | + +--------+ +--------+ + + | Cindy Arndt | Person | Self [birth year] | [address] | | | al/Fam | | 1955 | [phone] | [address] [place], [place] | | | [place] | | | 1 (Home) | [address] | + +--------+ +--------+ + + | Cindy Arndt | Person | Self [birth year] | [address] | | | al/Fam | | 1955 | [phone] | [address] [place], [place] | | | [place] | | | 1 (Home) | [address] | + +--------+ +--------+ + + Advance Directives + + + + + | Type | Date Recorded | Patient | Explanation | | | | Building Wrecker | | + + + + + | Power of | | | | | Academic Affairs Dean | | | | + + + [...]
--- OUTSIDE RECORDS SUMMARY | ~2020-07-03 | XMS | Encounter Summary ---
Demographics + + + | Address | [address] [facility] | | | [place] [address] | + + + | Home Phone [...] [place] | | | | | [address] | | + + + + + Care Team Providers + +------+ + | Care Washer Blanket Name | Role | Phone | + +------+ + PCP | Unavailable | + +------+ + Encounter Details +--------+ + + + + | Date | Type | Department | Care Team | Description | +--------+ + + + + | 06/30/ | Hospital | [facility] | | | | 2000 | Encounter | [facility] EM[facility]Y | | | | | | CENTER [address] | | | | | | [place] | | | | | | [address] | | | | | | [phone] | | | +--------+ + + + [...]
--- OUTSIDE RECORDS SUMMARY | ~2020-07-03 | XMS | Encounter Summary ---
Demographics + + + | Address | [address] [facility] | | | [place] [address] | + + + | Home Phone [...] [place] | | | | | [address] | | + + + + + Care Team Providers + +------+ + | Care Incendiary Powder Mixer Name | Role | Phone | [...] | 07/19/ | Telephone | [facility] | Frandy Teresa, | Appointment | | 2013 | | NEUROSURGERY [address] | DO [address] | | | | | [address] | [address] [place], [place] | | | | | [place], [place] | [id number] | | | | | [address] | | | | | | [phone] | | | +--------+ + + + [...] Spivey - 07/22/2014 8:09 AM PDTSusalesly from [facility] called back this morning to isamar mejía that she spoke with the patient again regarding this appointment and the patient would be ok with rescheduling to a time the following week. She just didn't want to make the trip down here right after she got back home to [place]. Heather can be reached at [phone] ectronically signed by Tiffani Humphrey at 07/22/2014 8:11 AM PDTTelephone Encounter - Lashawn Metzger - 07/19/2014 12:56 PM [facility] called to [...]
--- OUTSIDE RECORDS SUMMARY | ~2020-07-03 | XMS | Encounter Summary ---
Demographics + + + | Address | [address] [facility] | | | [place] [address] | + + + | Home Phone [...] [place] | | | | | [address] | | + + + + + Care Team Providers + +------+ + | Care Paste Up Artist Apprentice Name | Role | Phone | [...] + + | 09/19/ | Telephone | [facility] | Ashley Chávez | Other (Patient | | 2018 | | CARDIOLOGY GENESIS Abad, Foreign Diplomat | calling to be seen | | | | [address] | | mirella. ) | | | | [place], [place] | | | | | | [address] | | | | | | [phone] | | | +--------+ + + + [...] Miscellaneous Notes Telephone Encounter - Ashley Chávez Foreign Diplomat - 09/19/2019 10:41 AM PSTCall m cierra to patient to advise of Dr. Peterson's notes. Patient stated understanding. Patient asked why she couldn't be seen sooner, and I reminded her that we offered her a monae ner appointment that she turned down. Patient said thank you and hung up. BRODY:NABILAMA. el ephone Encounter - Ashley Chávez Foreign Diplomat - 09/19/2019 10:40 AM PST Dora De La Torre, CAROLINE Peterson DO; Ashley Chávez Foreign Diplomat So just an FYI: we offered her appointment today at 3 pm but she turned it down, and said she would keep scheduled appt. el ephone Encounter - Ashley Chávez Foreign Diplomat - 09/19/2019 10:38 AM PST----- Mess age [...] she needs to be seen by a filter plant operator. I have asked Lizeth to call [...] help her pulse? Please advise. Thank you! HOSPITAL umented in this encounter Plan of Treatment Not on filedocumented as of this encounter Visit Diagnoses Not on filedocumented in this encounter"
--- OUTSIDE RECORDS SUMMARY | ~2020-07-03 | XMS | Encounter Summary ---
Demographics + + + | Address | [address] [facility] | | | [place] [address] | + + + | Home Phone [...] [place] | | | | | [address] | | + + + + + Care Team Providers + +------+ + | Care Restrooms Or Lounges Maid Name | Role | Phone | + +------+ + PCP | Unavailable | + +------+ + Encounter Details +--------+ + + + + | Date | Type | Department | Care Team | Description | +--------+ + + + + | 03/11/ | Hospital | [facility] | Deon Gonzales | | | 2005 | Encounter | MED CTR SLEEP | MD [address] | | | | | [place] [address] | [address] [place] | | | | | [place], [place] | [place] [address] | | | | | [address] | [phone] | | | | | [phone] | | | +--------+ + + + [...]
--- OUTSIDE RECORDS SUMMARY | ~2020-07-03 | XMS | Encounter Summary ---
Demographics + + + | Address | [address] [facility] | | | [place] [address] | + + + | Home Phone [...] [place] | | | | | [address] | | + + + + + Care Team Providers + +------+ + | Care High School Business Teacher Name | Role | Phone | [...] | | Required | | branch | HEAD OF ICT [address] | [address] | | | | | block | [place] | [facility] | | | | | Paroxysmal | [address] | [address] | | | | | A-fib ([facility]) | [place], [place] | [address] | | | | | | [address] | [place], [place] | | | | | Schizoaffect | Phone: | [phone] Phone: | | | | | chris | [phone] | [phone] | | | | | disorder, | Fax: | Fax: | | | | | bipolar type | [phone] | [phone] | | | | | (HCC) | [...] + + | 04/24/ | Office | [facility] | Dora De La Torre | Left bundle branch | | 2020 | Visit | CARDIOLOGY [place] | CAROLINE Mendez [address] | block (Primary Dx); | | | | [address] | [address] | Paroxysmal A-fib | | | | [address] | [place] [address] | ([facility]); Mild | | | | [place], [place] | [phone] | hyperlipidemia; | | | | [address] | | Benign essential | | | | [phone] | | HTN; Poorly | | | | | | controlled type 2 | | | | | | diabetes mellitus | | | | | | ([facility]); Syncope, | | | [...] | | | | | type ([facility]); Rapid | | | [...] have referred you to Dr. Osuna at [facility] , call [phone] for an appo intment next week as [...] patient of , who is her primary appliance counselor, and last seen by her on 08/2020. [...] also resol shelly with weight loss Her [id number] VASC score is 4 (stroke, HTN, gender) [...] She has previously seen Dr. Garland in [place], and different sleep provider in [facility] when lived over there. She previously [...] After her syncopal episode she had notified [facility] cardiology, and Dr. Marquez, who was on-call [...] PCP, or get a referral to an case management director to get her blood sugars better controlled, [...] thirst or hunger. Psychiatric/Behavioral: Bipolar/Schizophrenia. Tx'd by [employer] Vaccines: Current on flu vaccine: 2019 Current on pneumonia vaccine:PPSV 23 05/29/2013 Habits/Social : Denies history of smoking. Denies EtOH use. Denies recreational or illici t drug use. Exercises sporadically. Lives in [place] . Outpatient Medications Prior to Visit Medication Sig Dispense Refill albuterol 90 mcg/puff inhaler Inhale 2 puffs into the lungs every 4 (four) hours as nee ded for Wheezing. amitriptyline (ELAVIL) 150 MG tablet Take 150 mg by mouth nightly . ARIPiprazole (ABILIFY) 10 mg tablet Take 10 mg by mouth nightly. Blood Glucose Monitoring Suppl ([place] VERIO FLEX SYSTEM) w/Device KIT by Does [...] discomfort, [facility] Resting EKG normal sinus rhythm, arrhythmias [...] bundle bran ch block Rate 74 bpm, IN 204 ms, QRS 138 ms, QTC 488 [...] bundle branch block. Ra te 105 bpm, IN 184 ms, QRS 144 ms, QTC 489 ms, tracing personally reviewed by me, and compar ed to EKG performed in December , rate is less well-controlled LABS Labs: 12/26/2018: ( [facility])CMP: Sodium 139, potassium 4.2, chloride 99, BUN 10, creatinine 0. 7, BNP 28. CBC: WBC 7.8, hemoglobin 14.3, hematocrit 42.7, platelets 214 Labs: 09/28/2019:( [facility]) CBC: WBC 7.8, hemoglobin 14.9, hematocrit 43.8, platelets 221. C MP: Sodium 132, potassium 4.2, chloride 95, AST 76, ALT 76, alk phos 134 Labs: 10/11/2019:( [facility]) CBC: WBC 6.7, RBC 4.97, hemoglobin 15.2, hematocrit 44.7, platel ets 200. CMP: Glucose 385, BUN 7, creatinine 0.62, GFR 97, sodium 131, potassium 4.1, chlor kelby 95, albumin 4.3, total bilirubin 0.6, AST 75, ALT 73, alk phos 144. Thyroid: TSH 4.27 Labs: 10/12/2020:( [facility]) CBC: WBC 7, RBC 4.93, hemoglobin 14.7, hematocrit 44.1, platele ts 186 normal UA CMP: Glucose 381, BUN 6, creatinine 0.63, GFR 95, sodium 133, potassium 3.8 , chloride 97, albumin 4.3, total bili 0.6, AST 62, ALT 75, alk phos 145 thyroid: TSH 3.07 Labs: 10/20/2019:( [facility]) CBC: WBC 7.1, RBC 4.93, hemoglobin 15.1, hematocrit 45.2, platel ets 204. CMP: Glucose 540, BUN 8, creatinine 0.81, GFR 71, sodium 131, potassium 4.1, chlor kelby 95, albumin 4.2, total bili 0.5, AST 54, ALT 63, alk phos 123, negative screen for all d rugs except tricyclics. Thyroid: TSH 3.39. Labs: 04/20/2020: ([facility]). CMP: Sodium 130, potassium 4.1, [...] admission and overnight teleme try stay at [facility] for syncopal episode with extremely [...] report. I have referred her to the [facility] sleep disorders clinic for further evaluation and bernadine atment Her event monitor will be placed on May 29, and she assured me that she would wear it for the full 2 weeks, and I will follow-up with her about the results on June 26. Addendum: Cindy called today and notified my medical administrative specialist that she had thrown up al l [...] 1 of the few prov iders in [place] currently 1. Left bundle branch block 2. [...] continuity of care purp ose Preston BUCIO [facility] Cardiology 04/25/2020 Laurie vivar in this [...] | | | | | A-fib ([facility]) | 04/24/2021 | | | | | [...] | | | | | A-fib ([facility]) | | | | | | Schizoaffective | | | | | | disorder, bipolar | | | | | | type ([facility]) Rapid | | | | [...]
--- OUTSIDE RECORDS SUMMARY | ~2020-07-03 | XMS | Encounter Summary ---
Demographics + + + | Address | [address] [facility] | | | [place] [address] | + + + | Home Phone [...] [place] | | | | | [address] | | + + + + + Care Team Providers + +------+ + | Care Parking Enforcer Name | Role | Phone | + [...] | | | [address] [place] | [place] [address] | | | | | [place] [address] | | | | | | [phone] | | | +--------+ + + + [...]
--- OUTSIDE RECORDS SUMMARY | ~2020-07-03 | XMS | Encounter Summary ---
Demographics + + + | Address | [address] [facility] | | | [place] [address] | + + + | Home Phone [...] [place] | | | | | [address] | | + + + + + Care Team Providers + +------+ + | Care Newspaper Deliverer Name | Role | Phone | + [...] + + | 08/22/ | Documentati | [facility] | Katharine Moncada, | Other (urgent | | 2019 | on | CARDIOLOGY GENESIS | Technologist | report) | | | | [address] | | | | | | [place] | | | | | | [address] | | | | | | [phone] | | | +--------+ + + + [...]
--- OUTSIDE RECORDS SUMMARY | ~2020-07-03 | XMS | Encounter Summary ---
Demographics + + + | Address | [address] [facility] | | | [place] [address] | + + + | Home Phone [...] [place] | | | | | [address] | | + + + + + Care Team Providers + +------+ + | Care Personnel Recruiter Name | Role | Phone | [...] + + | 10/23/ | Telephone | [facility] | Ashley Chávez | Other (Patient | | 2019 | | CARDIOLOGY GENESIS Abad, Assembly Machine Tool Setter | called about | | | | [address] | | metoprolol. ) | | | | [place] | | | | | | [address] | | | | | | [phone] | | | +--------+ + + + [...] Miscellaneous Notes Telephone Encounter - Ashley Chávez, Assembly Machine Tool Setter - 10/23/2019 10:49 AM Rory t called [...] back when I have her recommendations. JKASSIE:IRINA-AAMA. [facility] umented in this encounter Plan of Treatment Not on filedocumented as of this encounter Visit Diagnoses Not on filedocumented in this encounter"
--- OUTSIDE RECORDS SUMMARY | ~2020-07-03 | XMS | Encounter Summary ---
Demographics + + + | Address | [address] [facility] | | | [place] [address] | + + + | Home Phone [...] [place] | | | | | [address] | | + + + + + Care Team Providers + +------+ + | Care Hplc Chemist Name | Role | Phone | [...] 08/20/ | Documentati | [facility] | Katharine Moncada, | Other (urgent | | 2019 | on | CARDIOLOGY GENESIS | Technologist | report) | | | | [address] | | | | | | [place] | | | | | | [address] | | | | | | [phone] | | | +--------+ + + + [...]
--- OUTSIDE RECORDS SUMMARY | ~2020-07-03 | XMS | Encounter Summary ---
Demographics + + + | Address | [address] [facility] | | | [place] [address] | + + + | Home Phone [...] [place] | | | | | [address] | | + + + + + Care Team Providers + +------+ + | Care Material Spreader Name | Role | Phone | [...] | | | | | | | [address] | | | | | | | Phone: | | | | | | | [phone] | | | | | | | Fax: | | | | | | | [phone] | | +--------+ + + + + + Reason for Visit + + + | Reason | Comments | + + + | Follow-up | 3 mo po | + + + Encounter Details +--------+---------+ + + + | Date | Type | Department | Care Team | Description | +--------+---------+ + + + | 09/27/ | Office | [facility] | Frandy Teresa, | Lumbar spondylosis | | 2013 | Visit | NEUROSURGERY [address] | DO [address] | (Primary Dx); S/P | | | | [address] | [address] [place], [place] | lumbar fusion | | | | [place], [place] | [address] | | | | | [address] | | | | | | [phone] | | | +--------+---------+ + + + [...] m the original. Frandy Teresa DO [address] [facility] [address] [place], [place] [address] FAX: NEUROSURGERY FOLLOW-UP CHIEF COMPLAINT: Chief Complaint [...] Surgeon: Frandy castellanos DO; Location: [facility] MAIN OR CURRENT MEDICATIONS: Current Outpatient [...] Take 15 mg by mouth nightl y. [place]-3 Fatty Acids (FISH OIL CONCENTRATE) 1000 MG [...] Miscellaneous Notes Miscellaneous - ONBASE SCAN [facility] - 09/27/2014 12:00 AM PST documented [...]
--- OUTSIDE RECORDS SUMMARY | ~2020-07-03 | XMS | Encounter Summary ---
Demographics + + + | Address | [address] [facility] [facility] | | | [place] [address] | + + + | Home Phone [...] [place] | | | | | [address] | | + + + + + Care Team Providers + +------+ + | Care Silk Screen Printing Racker Name | Role | Phone | + +------+ + | Natalee Andersen NP | PCP | | + +------+ + Encounter Details +--------+ + + + + | Date | Type | Department | Care Team | Description | +--------+ + + + + | 09/27/ | Hospital | [facility] | Frandy Teresa, | Lumbar spondylosis; | | 2013 | Encounter | MED CTR XRAY [address] | DO [address] | S/P lumbar fusion | | | | [place] | [address] [place], [place] | | | | | [place] [address] | [address] | | | | | [phone] | | | +--------+ + + + [...] + + + +---------+ + + | [place]-3 Fatty | Take 1,000 mg by | [...] + | MISCELLANEOUS LAB | | | [phone] | + +---------+ + + | MISCELANIOUS LAB | | | [phone] | + +---------+ + + documented in this encounter Visit Diagnoses + + | Diagnosis | + + | Lumbar spondylosis Lumbosacral spondylosis without myelopathy | + + | S/P lumbar fusion Arthrodesis status | + + documented in this encounter"
--- OUTSIDE RECORDS SUMMARY | ~2020-07-03 | XMS | Encounter Summary ---
Demographics + + + | Address | [address] [facility] | | | [place] [address] | + + + | Home Phone [...] [place] | | | | | [address] | | + + + + + Care Team Providers + +------+ + | Care Chief Maintenance Supervisor Name | Role | Phone [...] [place] | | | | | | [address] | | | | | | [phone] | | | +--------+ + + + [...]
--- OUTSIDE RECORDS SUMMARY | ~2020-07-03 | XMS | Encounter Summary ---
Demographics + + + | Address | [address] [facility] | | | [place] [address] | + + + | Home Phone [...] [place] | | | | | [address] | | + + + + + Care Team Providers + +------+ + | Care Cabin Service Agent Name | Role | Phone [...] + | 08/14/ | Telephone | [facility] | Ashley Chávez | Other (Patient was | | 2018 | | CARDIOLOGY [place] Abad, Multi Purpose Machine Operator | anxious about urgent | | | | [address] | | reports. ) | | | | [place] | | | | | | [address] | | | | | | [phone] | | | +--------+ + + + [...] Miscellaneous Notes Telephone Encounter - Ashley Chávez, Multi Purpose Machine Operator - 08/14/2019 9:16 AM Seferino [...] for the time being. Patient stated understanding. BRODY:BMW SERVICE TECHNICIAN-AAMA. [facility] umented in this encounter Plan of Treatment Not on filedocumented as of this encounter Visit Diagnoses Not on filedocumented in this encounter"
--- OUTSIDE RECORDS SUMMARY | ~2020-07-03 | XMS | Encounter Summary ---
Demographics + + + | Address | [address] [facility] | | | [place] [address] | + + + | Home Phone [...] [place] | | | | | [address] | | + + + + + Care Team Providers + +------+ + | Care Loan Workout Officer Name | Role | Phone | + +------+ + | Natalee Andersen NP | PCP | | + +------+ + Encounter Details +--------+---------+ + + + | Date | Type | Department | Care Team | Description | +--------+---------+ + + + | 06/25/ | Surgery | [facility] | Frandy Teresa, | Canceled | | 2013 | | MED CTR OR INTRA OP | DO [address] | PROCEDURE NOT | | | | [address] | [address] [place], [place] | PERFORMED | | | | [place], [place] | [address] | | | | | [address] | | | | | | [phone] | | | +--------+---------+ + + + [...] + + + +---------+ + + | [place]-3 Fatty | Take 1,000 mg by | [...] this en counter H&P Notes ONBRUCE ABREU [facility] - 06/21/2014 12:00 AM PDT [...] MD at 06/26/2014 8:05 AM PDTONBRUCE ABREU [facility] - 06/26 12:00 AM PDT NBRUCE ZAMORA N [facility] - 06/26/2014 12:00 AM PDT NBASE SCAN [facility] - 06/12/2014 12:00 AM PDTElectronically signed by Mariah Schulte at 06/12 7:30 AM PDTONBASE SCAN [facility] - 06/11/2014 12:00 AM PDT documented in this encounter Miscellaneous Notes Miscellaneous - ONBASE SCAN [facility] - 06/26/2014 12:00 AM PDT [...] stenosis, lumbar region, without neurogenic claudication ). Virginia Line Attendant visit is in response to an electronic spiritual care consult request. Patient wa s resting comfortably in bed; she was attended by her mom and dad - both sate nearby and see med very attentive and supportive. Cindy is Episcopal, attends [employer], and is strong in her rangel. She is excited about taking care of her back problem and fe els very secure in Dr. Teresa's care. She welcomed prayer, and expressed appreciation for th visit. Follow up with regular visits, emotional and spiritual support. iscellaneo us - ONBASE SCAN [facility] - 06/25/2014 12:00 AM PDTElectronically [...] | non- | FILTRATION | mL/min/1.73m2 | [facility] | | | Israeli | RATE,ESTIMATED | | MEDICAL | | | | mL/min/1.13d8Ghat than | | CENTER - | | [...] mg/dL | [facility] | | | | | | MEDICAL | | | | | | CENTER - | | | | | | LABORATORY | | + + + + + + | BUN/Creatin | 20.0 | | [facility] | | | ine Ratio | | | [facility] | | | | | | MEDICAL [...] + | [facility] | [address] | [place] | [phone] | | [facility] | | [address] | | | - LABORATORY | | | | + + + + + | [facility] | [address] | [place] | | | [facility] | | [address], [facility] | | | - LABORATORY [...] + | [facility] | [address] | [place], [place] | [phone] | | [facility] | | [address] | | | - LABORATORY | | | | + + + + + | [facility] | [address] | [place], [place] | | | [facility] | | [address] | | | - LABORATORY [...] + | [facility] | [address] | [place] | [phone] | | [facility] | | [address] | | | - LABORATORY | | | | + + + + + | [facility] | [address] | [place] | | | [facility] | | [address] | | | - LABORATORY [...] | | Screen | | | [facility] | | | | [...] [address] | [place] | | | [facility] | | [address] | | | - BLOOD BANK | [...] + | [facility] | [address] | [place] | [phone] | | [facility] | | [address] | | | - LABORATORY | | | | + + + + + | [facility] | [address] | [place], [place] | | | [facility] | | [address] | | | - LABORATORY [...]
--- OUTSIDE RECORDS SUMMARY | ~2020-07-03 | XMS | Encounter Summary ---
Demographics + + + | Address | [address] [facility] | | | [place] [address] | + + + | Home Phone [...] [place] | | | | | [address] | | + + + + + Care Team Providers + +------+ + | Care Director Of Dance Name | Role | Phone | + [...] | 05/02/ | Telephone | [facility] | Frandy Teresa, | Other | | 2013 | | NEUROSURGERY [address] | DO [address] | | | | | [address] | [address] [place], [place] | | | | | [place], [place] | [id number] | | | | | [address] | | | | | | [phone] | | | +--------+ + + + [...]
--- OUTSIDE RECORDS SUMMARY | ~2020-07-03 | XMS | Encounter Summary ---
Demographics + + + | Address | [address] [facility] | | | [place] [address] | + + + | Home Phone [...] [place] | | | | | [address] | | + + + + + Care Team Providers + +------+ + | Care Ccna Name | Role | Phone | + [...] | | | [address] | [place] [address] | | | | | [place] [address] | | | | | | [phone] | | | +--------+ + + + [...]
--- OUTSIDE RECORDS SUMMARY | ~2020-07-03 | XMS | Encounter Summary ---
Demographics + + + | Address | [address] [facility] | | | [place] [address] | + + + | Home Phone [...] [place] | | | | | [address] | | + + + + + Care Team Providers + +------+ + | Care Neuropsychology Service Director Name | Role | Phone | [...] [address] | | | | | [place], [place] | Shaheen Simons | | | | | [address] | [place] [address] | | | | | [phone] | [phone] | | | | | | | [...] GIVEN Testing | | | performed at [facility];[address] [place] [address];[place] [address] CULTURE | | | 50,000 TO 100,000 CFU/ML | | | MIXED GRAM POSITIVE HAIDER NO SUSCEPTIBILITY TO FOLLOW | | | MULTIPLE ORGANISM TYPES PRESENT, | | | SUGGESTIVE OF CONTAMINATION OR COLONIZATION. SUGGEST RECOLLECTION FOR | | | CULTURE. Testing | | | performed at [facility];[address] [place] [address];[place] [address] REPORT | | | STATUS 06/08/2012 FINAL [...]
--- OUTSIDE RECORDS SUMMARY | ~2020-07-03 | XMS | Encounter Summary ---
Demographics + + + | Address | [address] [facility] | | | [place] [address] | + + + | Home Phone [...] [place] | | | | | [address] | | + + + + + Care Team Providers + +------+ + | Care Cocoa Press Operator Name | Role | Phone [...] + + | 08/16/ | Documentati | [facility] | Katharine Moncada, | Other (urgent | | 2019 | on | CARDIOLOGY [place] | Technologist | report) | | | | [address] | | | | | | [place] | | | | | | [address] | | | | | | [phone] | | | +--------+ + + + [...]
--- OUTSIDE RECORDS SUMMARY | ~2020-07-03 | XMS | Encounter Summary ---
Demographics + + + | Address | [address] [facility] | | | [place] [address] | + + + | Home Phone [...] [place] | | | | | [address] | | + + + + + Care Team Providers + +------+ + | Care Missile Mechanic Name | Role | Phone | + +------+ + PCP | Unavailable | + +------+ + Encounter Details +--------+ + + + + | Date | Type | Department | Care Team | Description | +--------+ + + + + | 05/23/ | Hospital | [facility] | [place], | | | 2011 | Encounter | MED CTR XRAY [address] | MD [address] | | | | | [place] | [place] | | | | | [place] [address] | [address] | | | | | [phone] | | | +--------+ + + + [...] + + + +---------+ + + | [place]-3 Fatty | Take 1,000 mg by | [...] Performed At | + + + | [facility] | [facility] | | [address], [facility] | [facility] | | LUMBAR SPINE MR WITHOUT [...] Transcribed Date/Time: | | | 05/23/2012 16:55 Wind Plant Manager: <Electronically Signed | | | by Adriano Anne MD> 05/23/12 5011 | | + + + + + | Procedure Note | + + | Manohar Martinez Conversion - 11/30/2013 5:47 PM [facility] | | Diagnostic Imaging Department [address] [place] [address] | | LUMBAR SPINE MR WITHOUT CONTRAST, [...] 16:37 | |Transcribed Date/Time: 05/23/2012 16:55 | |Wind Plant Manager: | |<Electronically Signed by Adriano Anne [...]
--- OUTSIDE RECORDS SUMMARY | ~2020-07-03 | XMS | Encounter Summary ---
Demographics + + + | Address | [address] [facility] | | | [place] [address] | + + + | Home Phone [...] [place] | | | | | [address] | | + + + + + Care Team Providers + +------+ + | Care Timber Spotter Name | Role | Phone | + +------+ + PCP | Unavailable | + +------+ + Encounter Details +--------+ + + + + | Date | Type | Department | Care Team | Description | +--------+ + + + + | 04/27/ | Hospital | [facility] | Sage Garza MD | | | 2001 | Encounter | HOSPITAL EMERGENCY | | | | | | CENTER [address] | | [address] [place], [place] | | | | | | [address] | | | | | | [phone] | | | +--------+ + + + [...]
--- OUTSIDE RECORDS SUMMARY | ~2020-07-03 | XMS | Encounter Summary ---
Demographics + + + | Address | [address] [facility] | | | [place] [address] | + + + | Home Phone [...] [place] | | | | | [address] | | + + + + + Care Team Providers + +------+ + | Care Bio Medical Technician Name | Role | Phone | [...] + | 02/27/ | Telephone | [facility] | Katahrine Cardona PA-C | Appointment (New | | 2014 | | MEDICINE [address] | Patient) | | | | [place], | [place] [address] | | | | | [place] [address] | [phone] | | | | | [phone] | | | +--------+ + + + [...] patients. Those patients are re ferred to [facility]. Cindy stated that would be [...]
--- OUTSIDE RECORDS SUMMARY | ~2020-07-03 | XMS | Encounter Summary ---
Demographics + + + | Address | [address] [facility] | | | [place] [address] | + + + | Home Phone [...] [place] | | | | | [address] | | + + + + + Care Team Providers + +------+ + | Care Field Services Manager Name | Role | Phone [...] updated | | | | | [address] [facility], | address | | | | | [address] [place] | | | | | | [place] [address] | | | | | | [phone] | | | +--------+ + + + [...]
--- OUTSIDE RECORDS SUMMARY | ~2020-07-03 | XMS | Encounter Summary ---
Demographics + + + | Address | [address] [facility] | | | [place] [address] | + + + | Home Phone [...] [place] | | | | | [address] | | + + + + + Care Team Providers + +------+ + | Care Traveling Representative Name | Role | Phone | [...] + | 06/20/ | Telephone | [facility] | Frandy Teresa, | Other (surgery | | 2013 | | NEUROSURGERY [address] | DO [address] | reminder ) | | | | [facility] | [address] [place], [place] | | | | | [place], [place] | [id number] | | | | | [address] | | | | | | [phone] | | | +--------+ + + + [...]
--- OUTSIDE RECORDS SUMMARY | ~2020-07-03 | XMS | Encounter Summary ---
Demographics + + + | Address | [address] [facility] | | | [place] [address] | + + + | Home Phone [...] [place] | | | | | [address] | | + + + + + Care Team Providers + +------+ + | Care Life Insurance Sales Name | Role | Phone | [...] | | | | | pain, | [place], [place] | | | | | | bilateral | [address] | | | | | | Degenerative | Phone: | | | | | | disc | [phone] | | | | | | disease, | Fax: | | | | | | lumbar | [phone] | | | | | | Spinal [...] [address] | [address] [place], [place] | (Primary Dx); Knee | | | | [place], [place] | [address] | pain, bilateral; | | | | [address] | | DEGENERATIVE DISC | | | | [phone] | | DISEASE, LUMBAR | | | [...]
--- OUTSIDE RECORDS SUMMARY | ~2020-07-03 | XMS | Encounter Summary ---
Demographics + + + | Address | [address] [facility] | | | [place] [address] | + + + | Home Phone [...] [place] | | | | | [address] | | + + + + + Care Team Providers + +------+ + | Care Mixer Operator Name | Role | Phone | [...] + + | 03/26/ | Telephone | [facility] | Thierry Fry | Medication Prior | | 2014 | | MEDICINE [address] [place] [address] | MD Lisa [address] | Authorization | | | | [place], | [place] | (Dexilant 60Mg) | | | | [place] [address] | [address] | | | | | [phone] | | | +--------+ + + + [...] were not received I contacted insurance ID# [id number] This has been denied. The patient must try and fail 2 of the following Omeprazole Protonix Prevacid Nexium Please advise elepho ne Encounter - Saba Acosta Cert MA - 03/26/2015 1:32 PM PDTCalled and requested a prior authorization Requested for via fax from [employer] Prior auth medication Dexilant 60MgElectronically signed by Faustina Aquino MA at 03/26 1:52 PM PDTdocumented in this encounter Plan of Treatment Not on filedocumented as of this encounter Visit Diagnoses Not on filedocumented in this encounter"
--- OUTSIDE RECORDS SUMMARY | ~2020-07-03 | XMS | Encounter Summary ---
Demographics + + + | Address | [address] [facility] | | | [place] [address] | + + + | Home Phone [...] [place] | | | | | [address] | | + + + + + Care Team Providers + +------+ + | Care Grain Trimmer Name | Role | Phone | [...] | 06/26/ | Telephone | [facility] | Frandy Teresa, | Other | | 2013 | | NEUROSURGERY [address] | DO [address] | | | | | [address] | [address] [place], [place] | | | | | [place], [place] | [id number] | | | | | [address] | | | | | | [phone] | | | +--------+ + + + [...]
--- OUTSIDE RECORDS SUMMARY | ~2020-07-03 | XMS | Encounter Summary ---
Demographics + + + | Address | [address] [facility] | | | [place] [address] | + + + | Home Phone [...] [place] | | | | | [address] | | + + + + + Care Team Providers + +------+ + | Care Outer Diameter Technician Name | Role | Phone | [...] [place] | | | | | | [address] | | | | | | [phone] | | | +--------+ + + + [...]
--- OUTSIDE RECORDS SUMMARY | ~2020-07-03 | XMS | Encounter Summary ---
Demographics + + + | Address | [address] [facility] | | | [place] [address] | + + + | Home Phone [...] [place] | | | | | [address] | | + + + + + Care Team Providers + +------+ + | Care Glass Calibrator Name | Role | Phone | + +------+ + PCP | Unavailable | + +------+ + Encounter Details +--------+ + + + + | Date | Type | Department | Care Team | Description | +--------+ + + + + | 12/09/ | Hospital | [facility] | Serafin Bautista | | | 2011 | Encounter | MED CTR XRAY [address] | [address], [address] | | | | | [place] | [address] [place] [address] | | | | | [place] [address] | [address] | | | | | [phone] | | | +--------+ + + + [...] Performed At | + + + | [facility] Diagnostic Imaging Department | [facility] | | [address] [place] [facility] | [facility] | | PROCEDURE NOTE EPIDURAL | [...] Manohar Martinez Conversion - 11/30/2013 4:45 PM [facility] | | Diagnostic [...]
--- OUTSIDE RECORDS SUMMARY | ~2020-07-03 | XMS | Encounter Summary ---
Demographics + + + | Address | [address] [facility] | | | [place] [address] | + + + | Home Phone [...] [place] | | | | | [address] | | + + + + + Care Team Providers + +------+ + | Care Blender Machine Operator Name | Role | Phone [...] + | 08/09/ | Clinical | [facility] | Desiree [place] DO | Syncope, unspecified | | 2019 | Support | CARDIOLOGY [place] | [address] | syncope type | | | | [address] | [place], [place] | | | | | [place] [address] | [address] | | | | | [place] | | | | | | [address] | Dora De La Torre | | | | | [phone] | [address] | | | | | | [address] | | | | | | [place] [address] | | | | | | [phone] | | | | | | | [...]
--- OUTSIDE RECORDS SUMMARY | ~2020-07-03 | XMS | Encounter Summary ---
Demographics + + + | Address | [address] [facility] [address] | | | [place] [address] | + + + | Home Phone [...] [place] | | | | | [address] | | + + + + + Care Team Providers + +------+ + | Care Parts Counter Specialist Name | Role | Phone | [...] | | | | | | | [address] | | | | | | | Phone: | | | | | | | [phone] | | | | | | | Fax: | | | | | | | [phone] | | +--------+--------+ + + + + Encounter Details +--------+---------+ + + + | Date | Type | Department | Care Team | Description | +--------+---------+ + + + | 02/27/ | Office | [facility] | Baudilio Newman | Neuropathy (Primary | | 2015 | Visit | NEUROLOGY LAURIE | MD Pollo Need updated | Dx); Sleep apnea; | | | | [address] [facility], | address | Stroke (HCC); | | | | [address] [place] | | Thyroid disease | | | | [place] [address] | | | | | | [phone] | | | +--------+---------+ + + + [...] supply of blood, brain tissue quickly dies. [id number] [employer]. [address] [place] [address]. All righ ts reserved. This information is not intended as a substitute for professional medical care. Always follow your healthcare professional's instructions. documented in this encounter Progress Notes Baudilio Newman MD - 02/27/2015 10:31 AM PDTFormatting of this note might be differen t from the original. Baudilio Newman MD [address] [place] [address], [address] [place] [address] Neurology Outpatient New Patient Note Referring Provider: [...] history. Notes from her recent hospitalization at [facility] were reviewed in detail. Ms. Arndt started feeling off in the evening of 02/01. She felt dizzy and laid down to slee p. Upon waking, she felt her right side was numb. She tried to get up to go to the bathroom and realized she was weak as well on the right. She was taken to [facility] where she was diagnosed with a [...] She was reevaluated in the [facility] ED for one such event [...] hospitalization . This specimen was characterized at [facility], but the report is not currently available for [facility]. Unfortunately, Ms. Arndt notes that her [...] Take 15 mg by mouth nightly. [place]-3 Fatty Acids (FISH OIL CONCENTRATE) 1000 MG [...] BMI 46.04 kg /m2 Neck Circumference: 14" [place] Sleepiness Scale: 2 General: well developed and [...] Romberg test negative Radiographic Review: CTA from [facility] reviewed on iSITE. No significant stenoses seen [...] No results found for this basename: hba1c, njr4knl, ldl, ldldirect, ldlext, dldlex Lab Results Component [...]
--- OUTSIDE RECORDS SUMMARY | ~2020-07-03 | XMS | Encounter Summary ---
Demographics + + + | Address | [address] [facility] | | | [place] [address] | + + + | Home Phone [...] [place] | | | | | [address] | | + + + + + Care Team Providers + +------+ + | Care Food Safety Auditor Name | Role | Phone | [...] + + | 10/25/ | Telephone | [facility] | Ashley Chávez | Other (Patient to | | 2019 | | CARDIOLOGY GENESIS Abad, Director Inbound Sales | stay on the same | | | | [address] | | dose. ) | | | | [place] | | | | | | [address] | | | | | | [phone] | | | +--------+ + + + [...] Notes Telephone Encounter - Ashley Chávez Director Inbound Sales - 10/25/2019 8:44 AM PSTCall m cierra [...] Would not answer my calling her again. BRODY:SPRING FORMER-AAMA. el ephone Encounter - Ashley Chávez Director Inbound Sales - 10/25/2019 8:40 AM PST----- Mess age from Desiree Peterson DO sent at 10/24/2019 8:42 PM PST ----- Regarding: RE: Patient's Metoprolol. We can stay on the same dose of metoprolol for now. Thanks ----- Message ----- From: Ashley Chávez Director Inbound Sales Sent: 10/23/2019 10:52 AM PST To: Desiree [...]
--- OUTSIDE RECORDS SUMMARY | ~2020-07-03 | XMS | Encounter Summary ---
Demographics + + + | Address | [address] [facility] [address] | | | [place] [address] | + + + | Home Phone [...] [place] | | | | | [address] | | + + + + + Care Team Providers + +------+ + | Care Chief Pilot Name | Role | Phone | + +------+ + | Natalee Andersen NP | PCP | | + +------+ + Encounter Details +--------+ + + + + | Date | Type | Department | Care Team | Description | +--------+ + + + + | 07/25/ | Hospital | [facility] | Frandy Teresa, | Status post lumbar | | 2014 | Encounter | MED CTR XRAY [address] | DO [address] | spinal fusion | | | | [place] | [address] [place], [place] | | | | | [place] [address] | [address] | | | | | [phone] | | | +--------+ + + + [...] + + + +---------+ + + | [place]-3 Fatty | Take 1,000 mg by | [...] + | MISCELLANEOUS LAB | | | [phone] | + +---------+ + + | MISCELANIOUS LAB | | | [phone] | + +---------+ + + documented in this encounter Visit Diagnoses + + | Diagnosis | + + | Status post lumbar spinal fusion Arthrodesis status | + + documented in this encounter"
--- OUTSIDE RECORDS SUMMARY | ~2020-07-03 | XMS | Encounter Summary ---
Demographics + + + | Address | [address] [facility] | | | [place] [address] | + + + | Home Phone [...] [place] | | | | | [address] | | + + + + + [...] | | | | | Procedures | [facility]S [facility]ANT [address] | [address] | | | | | [place] OFFICE | | [address] | | | | | CONSULTATION | [address] | [place], [place] | | | | | NEW/ESTAB | [place], | [address] Phone: | | | | | PATIENT 60 | [place] [address] | [phone] | | | | | MIN | Phone: | Fax: | | | | | | [phone] | [phone] | | | | | | Fax: | | | | | | | [phone] | | +--------+--------+ + + + + Encounter Details +--------+---------+ + + + | Date | Type | Department | Care Team | Description | +--------+---------+ + + + | 05/02/ | Office | [facility] | Frandy Teresa, | Spondylolisthesis of | | 2013 | Visit | NEUROSURGERY [address] | DO [address] | lumbar region | | | | [address] | [address] [place], [place] | (Primary Dx); Lumbar | | | | [place], [place] | [address] | stenosis; Lumbar | | | | [address] | | radicular pain; | | | | [phone] | | Lumbago | +--------+---------+ + + [...] [facility], [address] [place], [place] [id number] FAX: NEUROSURGERY HISTORY AND PHYSICAL EXAMINATION CHIEF [...] Take 15 mg by mouth nightl y. [place]-3 Fatty Acids (FISH OIL CONCENTRATE) 1000 MG [...] has no apparent deficits with short or vermin exterminator memory. CRANIAL NERVES: II: Acuity is [...] Intrinsics 5 5 Ulnar Intrinsics 5 5 Brooch And Bracelet Maker Strength 5 5 Hip Flexion 5 [...] ONBASE SCAN [facility] - 05/02/2014 12:00 AM PDTElectronically signed by [facility] at 05/08/2014 8:57 AM PDTMiscellaneous - ONBASE SCAN [facility] - 05/02/2014 12:00 AM PDTEle ctronically signed by [facility] at 05/08/2014 8:56 AM PDTdocumented in this [...]
--- OUTSIDE RECORDS SUMMARY | ~2020-07-03 | XMS | Encounter Summary ---
Demographics + + + | Address | [address] [facility] [address] | | | [place] [address] | + + + | Home Phone [...] [place], [place] | | | | | [address] | | + + + + + Care Team Providers + +------+ + | Care Bottle Tester Name | Role | Phone | + +------+ + PCP | Unavailable | + +------+ + Encounter Details +--------+ + + + + | Date | Type | Department | Care Team | Description | +--------+ + + + + | 09/10/ | Hospital | [facility] | | | | 1992 | Encounter | MED CTR LABORATORY | | | | | | [address] | | | | | | [place] | | | | | | [address] | | | | | | [phone] | | | +--------+ + + + [...]
--- OUTSIDE RECORDS SUMMARY | ~2020-07-03 | XMS | Encounter Summary ---
Demographics + + + | Address | [address] [facility] [address] | | | [place] [address] | + + + | Home Phone [...] [place] | | | | | [address] | | + + + + + Care Team Providers + +------+ + | Care Cast Shell Grinder Name | Role | Phone | [...] + + | 04/05/ | Telephone | [facility] | [facility], | Results | | 2012 | | GASTROENTEROLOGY | [place] [address] | | | | | [address] | [address] | | | | | [address] | [place], [place] | | | | | [address] | [address] | | | | | [phone] | | | +--------+ + + + [...]
--- OUTSIDE RECORDS SUMMARY | ~2020-07-03 | XMS | Encounter Summary ---
Demographics + + + | Address | [address] [facility] | | | [place] [address] | + + + | Home Phone [...] [place] | | | | | [address] | | + + + + + Care Team Providers + +------+ + | Care Cable Assembler And Swager Name | Role | Phone [...] | | | | | [place] [address] | | | | | | [phone] | | | +--------+ + + + [...] stroke work up she had done at [place] was quite thorough and she did not [...]
--- OUTSIDE RECORDS SUMMARY | ~2020-07-03 | XMS | Encounter Summary ---
Demographics + + + | Address | [address] [facility] [address] | | | [place] [address] | + + + | Home Phone [...] [place] | | | | | [address] | | + + + + + Care Team Providers + +------+ + | Care Machine Cementer Name | Role | Phone | + [...] + + | 08/15/ | Documentati | [facility] | Katharine Moncada, | Other (urgent | | 2019 | on | CARDIOLOGY GENESIS | Technologist | report) | | | | [address] | | | | | | [place] | | | | | | [address] | | | | | | [phone] | | | +--------+ + + + [...]
--- OUTSIDE RECORDS SUMMARY | ~2020-07-03 | XMS | Encounter Summary ---
Demographics + + + | Address | [address] [facility] [address] | | | [place] [address] | + + + | Home Phone [...] [place] | | | | | [address] | | + + + + + Care Team Providers + +------+ + | Care Development Geologist Name | Role | Phone | [...] | Frandy Simons DO | [address] | | | | | of skin | [address] | [place], | | | | | sensation | [address] | [place] | | | | | Arthrodesis | [place], [place] | [address] | | | | | status Left | [address] | Phone: | | | | | leg | Phone: | [phone] | | | | | weakness | [phone] | Fax: | | | | | Procedures | Fax: | [phone] | | | | | MRI Lumbar | [phone] | | | | | | Spine [...] | Frandy A, DO | [address] | | | | | of skin | [address] | [place], | | | | | sensation | [address] | [place] | | | | | Arthrodesis | [place] | [address] | | | | | status Left | [address] | Phone: | | | | | leg | Phone: | [phone] | | | | | weakness | [phone] | Fax: | | | | | Procedures | Fax: | [phone] | | | | | MRI Lumbar | [phone] | | | | | | Spine wo | | | | | | | Contrast | | | +--------+--------+ + + + + Encounter Details +--------+ + + + + | Date | Type | Department | Care Team | Description | +--------+ + + + + | 08/19/ | Hospital | [facility] | Frandy Teresa, | Status post lumbar | | 2013 | Encounter | MED CTR MRI [address] | DO [address] | spinal fusion; Left | | | | [place], | [address] [place] | leg numbness; Left | | | | [place] [address] | [address] | leg weakness | | | | [phone] | | | +--------+ + + + [...] + + + +---------+ + + | Att[place]-3 Fatty | Take 1,000 mg by | [...] of this encounter Miscellaneous Notes Miscellaneous - [facility] - 09/06/2014 12:00 AM PST documented in [...] the round structure with high T1 and [id number] in the right L3 vertebral | | [...] + | MISCELLANEOUS LAB | | | [phone] | + +---------+ + + | MISCELANIOUS LAB | | | [phone] | + +---------+ + + documented in [...]
--- OUTSIDE RECORDS SUMMARY | ~2020-07-03 | XMS | Encounter Summary ---
Demographics + + + | Address | [address] [facility] [address] | | | [place] [address] | + + + | Home Phone [...] [place] | | | | | [address] | | + + + + + Care Team Providers + +------+ + | Care Multimedia Coordinator Name | Role | Phone | [...] | | | spondylolist | | [address] | | | | | hesis | | [place], | | | | | Spinal | | [place] [address] | | | | | stenosis, | | Phone: | | | | | lumbar | | [phone] | | | | | region, | | Fax: | | | | | without | | [phone] | | | | | neurogenic | [...] + + | 07/02/ | Hospital | [facility] | Frandy Teresa, | Degenerative disc | | 2013 - | Encounter | MED CTR SURGICAL | DO [address] | disease, lumbar | | | | [address] | [place] [address] [place] | (Primary Dx); | | 07/05/ | | [place] [address] | [phone] | Diabetes mellitus | | 2013 | | [phone] | | ([facility] MARY BLACK [...] might be different fro m the original. [facility] DISCHARGE SUMMARY PATIENT NAME: Cindy Arndt [...] Take 15 mg by mouth nightl y. [place]-3 Fatty Acids (FISH OIL CONCENTRATE) 1000 MG [...] sleeping. Follow lumbar precautions. PLAN FOR FOLLOW-UP:Dr. eTresa in 4 weeks Follow Up Appointments: No [...] 07/04/2014 7:43 AM PDT [facility] PROGRESS NOTE Pt. Name/Age/: Cindy Arndt 58 y.o. 1955 Med. Record Number: [id number] Date of admission: 07/02/2014 Subjective: The patient [...] home medications. D/C plan: Home tomorrow with [facility]. D/c mari drain and riley cath today. D/c weather forcaster. Patient Active Problem List Diagnosis LUMBAR DISC [...] by: Chris Nicole, 07/04/2014 7:45 [facility] Chris Lynn PA-C - 07/03/2014 7:13 AM PDT . [facility] Services PROGRESS NOTE Pt. Name/Age/: Cindy Arndt 58 y.o. 1955 Med. Record Number: [id number] Date of admission: 07/02/2014 Subjective: The patient [...] Nicole, 07/03/2014 7:13 [facility] oTon perez, KIRS - 07/03/2014 6:50 AM PDTRemoved continuous oximeter [...] PDTFrandy Teresa DO - 07/02/2014 11:15 AM [id number] [facility] [place] [address] FAX: NEUROSURGERY HISTORY AND PHYSICAL EXAMINATION CHIEF [...] Take 15 mg by mouth nigh tly. [place]-3 Fatty Acids (FISH OIL CONCENTRATE) 1000 MG [...] file to calculat e BMI. GENERAL: Cindy Anrdt is in no acute distress with unlabored [...] Intrinsics 5 5 Ulnar Intrinsics 5 5 Igniter Capper Strength 5 5 Hip Flexion 5 4* [...] en counter Procedure Notes [facility] - 07/12/2014 12:00 AM PDT 14 1[facility]45 [facility] - 07/04/2014 12:00 AM PDT [facility] - 07/02/2014 12:00 AM PDT documented in this encounter Miscellaneous Notes Plan of Care - [facility] 07/12/2014 12:00 AM PDT iscellaneous - [facility] 07/12/2014 12:00 AM PDTElec tronically signed by Mariah Schulte at 07/12/2014 1:45 PM PDTMiscellaneous - [facility] 07/12/2014 12:00 AM PDT i scellaneous - [facility] - 07/12/2014 12:00 AM PDT lan of Care - Joe Louis RN - 07/05/2014 5:00 PM PDTProb honey: General Plan of Care (Adult, Obstetrics) Goal: Care Plan Shift Summary & Review . Outcome: Adequate for Discharge Date Met: 07/05/14 Pt DCd to [facility] per her request. Did not feel safe [...] and I will be going to a FDC as I have 16 steps to my [...] TBD) Equipment Recommendations: tub bench;hand held shower head;mail service coordinator;comfort height toilet ( pt. has all necessary [...] PA-C Consultants: none PCP: Natalee Andersen [facility] transferring to: [facility] Provider after transfer: PCP and Dr. Frandy Teresa CODE STATUS: [x] Attempt CPR [] Do not resuscitate If patient is pulseless and not breathing, RN/MANAGER OF SUSTAINABILITY may pronounce . Advanced Directives included: [] [...] for this patient. Diet: [] As tolerated CNA may upgrade or downgrade diet as condition Indicates. [x] RN may downgrade diet as indicated. Type: [] Continue current diet of: Diet and Supplements Diet DIET CONSISTENT CARBOHYDRATE Number of Occurrences: -1 Days [] Other: Consistency/Precautions: [] Whole [] Thin Liquids [] Cut-up [] Honey Hill Thick [] Advanced Chopped [] Honey Thickened [] Chopped [] Advanced Ground [] 1:1 feedings [] Ground/Pureed [] Other: Tube Feedings: [] PEG [] GT [] JT [] NGT [] Formula type: (Insulation Cupola Operator may change/substitute if indicated). [] Continuous [...] & Management for: ____same as above [] CNA Evaluation &Management for: [] Other: Wound/Skin Care: [...] Take 15 mg by mouth ni linda. [place]-3 Fatty Acids (FISH OIL CONCENTRATE) 1000 MG [...] Chris Nicole PA-C, certify that [facility] care is medically nec essary on a [...] progressive walking and doing stairs [facility] hospital stay due to multiple pain c/o. Attempted to see pt. 1145, however had just rec eived pain medication and requested PT return, SPL 9/10. At 1205 pt contacted PT for assist OOB due to left LE spasms and need for position change. Sitting at EOB on arrival, GUARD SERGEANT pres ent. Pt. donned LSO brace, stood [...] of endurance. When patient is walking in [facility] with a regular FWW she has to stop frequently and states she feels very weak, like sh e may fall. Patient lives alone. Outpatient prescriptions are filled at [facility] in [facility]. Electronically signed by: Franca Narvaez RN 07/05/2014 10:43 lan of Adilene Layne Rivers - 07/05/2014 10:39 AM PDTFaxed referral to Gabriela Stout and Lidia Tran. [place] : [id number] and [place]: [id number] Electronically signed by: Layne Collado 07/05/2014 10:40 [...] TBD) Equipment Recommendations: tub bench;hand held shower head;mail service coordinator;comfort height toilet ( pt. has all necessary equipment) Planned Interventions: ADL retraining;transfer training Patient Status/Goals Reflects last filed data of patient status; may be from multiple contributors. Grooming: Status: did not occur today Assist: Utilizes: STG: Status: New Goal:modified independent LTG: Status: Goal: UE Dressing: Status: SBA Assist: Utilizes: STG: Status: Goal: LTG: Status: Goal: LE Dressing: Status: SBA Utilizes: mail service coordinator STG: Status: New Goal: modified independent LTG: [...] bed mobil ity. Pt has been using YARN WEIGHT AND STRENGTH TESTER and pain pills during the night. Zofran [...] by herself in a small apartment in [place]. Patient states she has her apartment set [...] to come from [facility] [place]. She states the Said she might benefit [facility] upon discharge. She would like me to contact [facility] to giv e them a heads up. I called and spoke to Summer at [facility] , told her patients PCP i [...] Pt. resting in bed on arrival, used YARN WEIGHT AND STRENGTH TESTER x 2 during session. SPL /10. Pt. hoping to urinate stave log cut off saw operator to straight cath. Sidelying to sit [...] TBD) Equipment Recommendations: tub bench;hand held shower head;mail service coordinator;comfort height toilet ( pt. has all necessary [...] & Review . Outcome: Progressing Pt using YARN WEIGHT AND STRENGTH TESTER and PO pain pills, c/o numbness on [...] and on a continuous oximeter for her YARN WEIGHT AND STRENGTH TESTER. She was unable to do her IS because o f the medications. She has the IS at bedside with a goal of 2400. She did not require additi onal respiratory care throughout the evening. p Note - Frandy Teresa, DO - 07/02/2014 2:25 PM PDTDATE: 07/02/2014 SURGEON: Frandy Teresa MD. SKEIN WINDING OPERATOR: ZANE Oh PREOPERATIVE DIAGNOSES 1. Spondylolisthesis, [...] x 26 mm Capstone PEEK cage from [employer] was chosen. It was filled with Infus [...] Note Cindy Arndt 58 y.o. female 1955 [id number] Proc. Date 07/02/2014 Preop Dx Spondylolisthesis L5-S1 Postop Dx same Procedure Procedure(s):MIS L5-S1 TRANSFORAMINAL LUMBAR INTERBODY FUSION Anesthesia General Surgeon Frandy Teresa DO Silver Spray Worker ZANE Oh EBL 100 mL Findings Findings [...] [address] | [place] | [phone] | | [facility] | | [address] | | | - LABORATORY | | | | + + + + + | [address] [facility] | [address] | [place], [place] | | | [facility] | | [id number] | | | - [...] + | [facility] | [address] | [place] | [phone] | | [facility] | | [address] | | | - LABORATORY | | | | + + + + + | [facility] | [address] | [place], [place] | | | [facility] | | [id number] | | | - [...] [address] | [place] | [phone] | | [facility] | | [address] | | | - LABORATORY | | | | + + + + + | [facility] | [address] | [place] | | | [facility] | | [address] | | | - [...] + | [facility] | [address] | [place] | [phone] | | [facility] | | [address] | | | - LABORATORY | | | | + + + + + | [facility] | [address] | [place], [place] | | | [facility] | | [address], [facility] | | | - LABORATORY | [...] [address] | [place] | [phone] | | [facility] | | [address] | | | - LABORATORY | | | | + + + + + | [facility] | [address] | [place] | | | [facility] | | [address], [facility] | | | - LABORATORY | [...] + | [facility] | [address] | [place] | [phone] | | [facility] | | [address] | | | - LABORATORY | | | | + + + + + | [facility] | [address] | [place], [place] | | | [facility] | | [address], [facility] | | | - LABORATORY | [...] + | [facility] | [address] | [place], [place] | [phone] | | [facility] | | [address] | | | - LABORATORY | | | | + + + + + | [facility] | [address] | [place] | | | [facility] | | [id number] | | | - [...] + | [facility] | [address] | [place] | [phone] | | [facility] | | [address] | | | - LABORATORY | | | | + + + + + | [facility] | [address] | [place] | | | [facility] | | [address], [facility] | | | - LABORATORY | [...] + | [facility] [facility] | [address] | [place], [place] | [phone] | | [facility] | | [address] | | | - LABORATORY | | | | + + + + + | [facility] | [address] | [place], [place] | | | [facility] | | [id number] [place] [address] | | | - LABORATORY | | [...] | of hardware for posterior fusion from T5qqwrumy S1 with interbody hardware at L5-S1. The [...] + | MISCELLANEOUS LAB | | | [phone] | + +---------+ + + | MISCELANIOUS LAB | | | [phone] | + +---------+ + + POC Glucose [...] [address] | [place] | [phone] | | [facility] | | [address] | | | - LABORATORY | | | | + + + + + | [facility] | [address] | [place], [place] | | | [facility] | | [address], [facility] | | | - LABORATORY | [...] + | [facility] | [address] | [place] | [phone] | | [facility] | | [address] | | | - LABORATORY | | | | + + + + + | [facility] | [address] | [place] | | | [facility] | | [address] | | | - [...] [address] | [place] | [phone] | | [facility] | | [address] | | | - LABORATORY | | | | + + + + + | [address] [facility] | [address] | [place] | | | [facility] | | [address] | | | - [...] + | [facility] | [address] | [place] | [phone] | | [facility] | | [address] | | | - LABORATORY | | | | + + + + + | [facility] | [address] | [place], [place] | | | [facility] | | [id number] | | | [...] [address] | [place] | [phone] | | [facility] | | [address] | | | - LABORATORY | | | | + + + + + | [facility] | [address] | [place] | | | [facility] | | [address], [facility] | | | - LABORATORY | [...] | [facility] | | [address] | | | - BLOOD BANK | [...] + +---------+ +---+---+---+ | morphine 5 mg/mL YARN WEIGHT AND STRENGTH TESTER syringe | New Bag | 07/02/20 | [...] | | | | Dose(mg): 0, Starting YARN WEIGHT AND STRENGTH TESTER | | | | | | | Dose(mg): 1, Incremental Increase | | | | | | | YARN WEIGHT AND STRENGTH TESTER Dose(mg): 0.5, Maximum YARN WEIGHT AND STRENGTH TESTER | | | | | | | [...]
--- OUTSIDE RECORDS SUMMARY | ~2020-07-03 | XMS | Encounter Summary ---
Demographics + + + | Address | [address] [facility] [address] | | | [place] [address] | + + + | Home Phone [...] [place] | | | | | [address] | | + + + + + Care Team Providers + +------+ + | Care Analysis Specialist Name | Role | Phone [...] + + | 10/04/ | Office | [facility] | Desiree Peterson DO | ROGERS on CPAP (Primary | | 2019 | Visit | CARDIOLOGY [place] | [address] | Dx); Morbid obesity | | | | [address] | [place], [place] | ([facility]); Benign | | | | [address] [place] [address] | [id number] | essential HTN; | | | | [place], [place] | | Atrial fibrillation, | | | | [address] | | unspecified type | | | | [phone] | | (HCC) | +--------+---------+ + + [...] Peterson, DO - 10/04/2019 11:[address] [facility] Cardiology Cardiology Follow Up [...] rtake in exercise. She recently got a EntrenaYa and has been walking him more regularly. [...] by mouth daily. Blood Glucose Monitoring Suppl (CareDoxIO FLEX SYSTEM) w/Device KIT by Does not ap ply route. budesonide-formoterol (SYMBICORT) 160-4.5 MCG/ACT inhaler Inhale 2 puffs into the lungs 2 (two) times daily. Calcium Carbonate Antacid 1000 MG tablet Take 1,000 mg by mouth 3 (three) times daily. Cholecalciferol (VITAMIN D3) 93630 units CAPS Take by mouth once a [...]
--- OUTSIDE RECORDS SUMMARY | ~2020-07-03 | XMS | Encounter Summary ---
Demographics + + + | Address | [address] [facility] [address] | | | [place] [address] | + + + | Home Phone [...] [place] | | | | | [address] | | + + + + + Care Team Providers + +------+ + | Care Clinical Nurse Occupational Medicine Name | Role | Phone | [...] + | 06/27/ | Office | [facility] | Yecenia Richardson, | Hypertension, | | 2019 | Visit | CARDIOLOGY [place] | MD Nitin RODRIGUES | unspecified type | | | | [address] | [place], [place] | (Primary Dx); | | | | [address] [place] [address] | [address] | Bradycardia | | | | [place] | | | | | | [address] | | | | | | [phone] | | | +--------+---------+ + + + [...] Take by mouth. Blood Glucose Monitoring Suppl (ClassLink VERIO FLEX SYSTEM) w/Device KIT by Does [...] mg by mouth Daily. Cholecalciferol (VITAMIN D-3) 45894 units CAPS Take 50,000 Units by mouth [...] tablet Take 10 mg by mouth nightly. [place]-3 Fatty Acids (FISH OIL CONCENTRATE) 1000 MG [...]
--- OUTSIDE RECORDS SUMMARY | ~2020-07-03 | XMS | Encounter Summary ---
Demographics + + + | Address | [address] [facility] [address] | | | [place] [address] | + + + | Home Phone [...] [place] | | | | | [address] | | + + + + + Care Team Providers + +------+ + | Care Managed Care Liaison Name | Role | Phone [...] | | [address] [address] | [place] [address] | | | | | [place] | [phone] | | | | | [address] | | | | | | [phone] | | | +--------+ + + + [...] Percocet prescription and faxed it to them ([facility]) this morning like I told them I would. Thank you for doing that, but it should not have been necessary. Telephone Encounter - Lincoln Cheema MD - 07/06/2014 8:59 PM PDTCalled regarding increased p ain. She was taking percocet. She was discharged to a [facility] on hydrocodone. I talked to the [...]
--- OUTSIDE RECORDS SUMMARY | ~2020-07-03 | XMS | Encounter Summary ---
Demographics + + + | Address | [address] [facility] | | | [place] [address] | + + + | Home Phone [...] [place] | | | | | [address] | | + + + + + Care Team Providers + +------+ + | Care Covering Machine Operator Helper Name | Role | [...] | 08/15/ | Documentati | [facility] | Katharine Moncada, | Other (urgent | | 2019 | on | CARDIOLOGY GENESIS | Technologist | report) | | | | [address] | | | | | | [place] | | | | | | [address] | | | | | | [phone] | | | +--------+ + + + [...]
--- OUTSIDE RECORDS SUMMARY | ~2020-07-03 | XMS | Encounter Summary ---
Demographics + + + | Address | [address] [facility] | | | [place] [address] | + + + | Home Phone [...] [place] | | | | | [address] | | + + + + + Care Team Providers + +------+ + | Care Engraver Picture Name | Role | Phone | + [...] | 09/10/ | Documentati | [facility] | Katharine Moncada, | Other (urgent | | 2019 | on | CARDIOLOGY GENESIS | Technologist | report) | | | | [address] | | | | | | [place] | | | | | | [address] | | | | | | [phone] | | | +--------+ + + + [...]
--- OUTSIDE RECORDS SUMMARY | ~2020-07-03 | XMS | Clinical Summary ---
Demographics + + + | Address | [address] [facility] [address] | | | [place] [address] | + + + | Home Phone [...] [place] | | | | | [address] | | + + + + + Care Team Providers + +------+ + | Care Enterprise Architect Manager Name | Role | Phone | + +------+ + PCP | Unavailable | + +------+ + Source Comments EDWARD is fully live on both [facility] Ambulatory and [facility] InPatient.[facility] Allergies Not on File [...] + +--------+ | MEDICARE | MEDICA | [id number] | 02/22/20 | [phone] | [address] | [employer] | | | RE A & | | 15-Pre | 1 | [address] | [address] | | | B | | sent | | [place] | | | | | | | | [address] | | + +--------+ +--------+ + +--------+ + +--------+ +--------+ + + | Guarantor Name | Accoun | Relation to | Date | Phone | Billing Address | | | t Type | Patient | of | | | | | | | | | | + +--------+ +--------+ + + | CINDY ARNDT | Person | Self | [birth year] | [address] | | | al/Fam | | 1955 | [phone] | [address] [place] | | | [place]onte | | | 5 (Home) | [address] | + +--------+ +--------+ + +"
--- OUTSIDE RECORDS SUMMARY | ~2020-07-03 | XMS | Encounter Summary ---
Demographics + + + | Address | [address] [facility] | | | [place] [address] | + + + | Home Phone [...] [place] | | | | | [address] | | + + + + + Care Team Providers + +------+ + | Care Specification Consultant Name | Role | Phone | [...] + + | 08/20/ | Documentati | [facility] | Katharine Moncada, | Other (urgent | | 2019 | on | CARDIOLOGY GENESIS | Technologist | report) | | | | [address] | | | | | | [place] | | | | | | [address] | | | | | | [phone] | | | +--------+ + + + [...]
--- OUTSIDE RECORDS SUMMARY | ~2020-07-03 | XMS | Encounter Summary ---
Demographics + + + | Address | [address] [facility] | | | [place] [address] | + + + | Home Phone [...] [place] | | | | | [address] | | + + + + + Care Team Providers + +------+ + | Care Computer Technologist Name | Role | Phone | [...] + + | 08/30/ | Telephone | [facility] | Ashley Chávez | Other (Patient wants | | 2018 | | CARDIOLOGY [place] Abad, Elementary Principal | to take monitor | | | | [address] | | off. ) | | | | [address] | | | | | | [place] | | | | | | [address] | | | | | | [phone] | | | +--------+ + + + [...] Miscellaneous Notes Telephone Encounter - Ashley Chávez, Elementary Principal - 08/30/2019 9:19 AM Rory foster called [...] thankful for the news. Patient stated understanding JKASSIE:LABORER POULTRY HATCHERY-AAMA. c umented in this encounter Plan of Treatment Not on filedocumented as of this encounter Visit Diagnoses Not on filedocumented in this encounter"
--- OUTSIDE RECORDS SUMMARY | ~2020-07-03 | XMS | Encounter Summary ---
Demographics + + + | Address | [address] [facility] | | | [place] [address] | + + + | Home Phone [...] [place] | | | | | [address] | | + + + + + Care Team Providers + +------+ + | Care Probation And Parole Officer Name | Role | Phone | + +------+ + | Basim Bolanos MD | PCP | | + +------+ + Encounter Details +--------+ + + + + | Date | Type | Department | Care Team | Description | +--------+ + + + + | 02/22/ | Abstract | [facility], | | | 2012 | | GASTROENTEROLOGY | FOR[place]UNATO Thomas [address] | | | | | [address] [place] | [address] | | | | | [address] [place], [place] | [place], [place] | | | | | [address] | [address] | | | | | [phone] | | | +--------+ + + + [...]
--- OUTSIDE RECORDS SUMMARY | ~2020-07-03 | XMS | Encounter Summary ---
Demographics + + + | Address | [address] [facility] | | | [place] [address] | + + + | Home Phone [...] [place], [place] | | | | | [address] | | + + + + + Care Team Providers + +------+ + | Care Clinical Office Technician Name | Role | Phone | + +------+ + PCP | Unavailable | + +------+ + Encounter Details +--------+ + + + + | Date | Type | Department | Care Team | Description | +--------+ + + + + | 12/31/ | Hospital | [facility] | | | | 1996 | Encounter | MED CTR XRAY [address] | | | | | | [place] | | | | | | [place] [address] | | | | | | [phone] | | | +--------+ + + + [...]
--- OUTSIDE RECORDS SUMMARY | ~2020-07-03 | XMS | Encounter Summary ---
Demographics + + + | Address | [address] [facility] | | | [place] [address] | + + + | Home Phone [...] [place] | | | | | [address] | | + + + + + Care Team Providers + +------+ + | Care Drive In Waiter/Waitress Name | Role | Phone | + +------+ + PCP | Unavailable | + +------+ + Encounter Details +--------+ + + + + | Date | Type | Department | Care Team | Description | +--------+ + + + + | 05/29/ | Hospital | [facility] | | | | 1991 | Encounter | MED CTR LABORATORY | | | | | | [address] | | | | | | [place] | | | | | | [address] | | | | | | [phone] | | | +--------+ + + + [...]
--- OUTSIDE RECORDS SUMMARY | ~2020-07-03 | XMS | Encounter Summary ---
Demographics + + + | Address | [address] [facility] | | | [place] [address] | + + + | Home Phone [...] [place] | | | | | [address] | | + + + + + Care Team Providers + +------+ + | Care Payroll Benefits Clerk Name | Role | Phone | [...] + + | 08/21/ | Documentati | [facility] | Katharine Moncada, | Other (urgent | | 2019 | on | CARDIOLOGY GENESIS | Technologist | report) | | | | [address] | | | | | | [place] | | | | | | [address] | | | | | | [phone] | | | +--------+ + + + [...]
--- OUTSIDE RECORDS SUMMARY | ~2020-07-03 | XMS | Encounter Summary ---
Demographics + + + | Address | [address] [facility] | | | [place] [address] | + + + | Home Phone [...] [place] | | | | | [address] | | + + + + + Care Team Providers + +------+ + | Care Metrologist Name | Role | Phone | + [...] Rd | | | | | | [place], [place] | | | | | | [address] | | | +--------+ + + + [...]
--- OUTSIDE RECORDS SUMMARY | ~2020-07-03 | XMS | Encounter Summary ---
Demographics + + + | Address | [address] [facility] | | | [place] [address] | + + + | Home Phone [...] [place] | | | | | [address] | | + + + + + Care Team Providers + +------+ + | Care Supervisor Throwing Department Name | Role | Phone | + +------+ + | Natalee Andersen NP | PCP | | + +------+ + Encounter Details +--------+ + + + + | Date | Type | Department | Care Team | Description | +--------+ + + + + | 05/02/ | Hospital | [facility] | Frandy Teresa, | Back pain | | 2013 | Encounter | MED CTR XRAY [address] | DO [address] | | | | | [place] | [address] [place], [place] | | | | | [place] [address] | [address] | | | | | [phone] | | | +--------+ + + + [...] + + + +---------+ + + | [place]-3 Fatty | Take 1,000 mg by | [...] + | MISCELLANEOUS LAB | | | [phone] | + +---------+ + + | MISCELANIOUS LAB | | | [phone] | + +---------+ + + documented in this encounter Visit Diagnoses + + | Diagnosis | + + | Back pain Backache, unspecified | + + documented in this encounter"
--- OUTSIDE RECORDS SUMMARY | ~2020-07-03 | XMS | Encounter Summary ---
Demographics + + + | Address | [address] [facility] | | | [place] [address] | + + + | Home Phone [...] [place] | | | | | [address] | | + + + + + Care Team Providers + +------+ + | Care Health Care Coach Name | Role | Phone | + +------+ + | Basim Bolanos MD | PCP | | + +------+ + Encounter Details +--------+ + + + + | Date | Type | Department | Care Team | Description | +--------+ + + + + | 03/30/ | Hospital | [facility] | Tyrese Neely MD | | | 2012 | Encounter | MED CTR MP INTRA OP | [address], [place] | | | | | [address] | [address] [place], [place] | | | | | [place], [place] | [address] | | | | | [address] | | | | | | [phone] | | | +--------+ + + + [...] + + + +---------+ + + | [place]-3 Fatty | Take 1,000 mg by | [...] Neely MD - 03/30/2013 12:10 [place] [address] Patient Name: CINDY ARNDT Provider: Tyrese Neely MD Unit #: [id number] Location: [facility] : 1955 Patient Name: Cindy Arndt Gender: F Procedure Date: 03/30/2013 12:10 PM Date of : 1955 Age: 57 Admit Type: Outpatient Room: Endo Room 1 Note Status: Finalized Attending MD: Tyrese Neely MD Procedure: Upper GI endoscopy Indications: Epigastric abdominal pain Providers: Tyrese Neely MD, Vanesa Anne RN, Yesenia Downing, Candy Attendant, Guillermo Ortiz MD (Anesthesia Staff) Referring MD: [...] physician, the nurse, the anesthesiologist and the telecommunications switch technician. The procedure was verified in the [...] + | [facility] | [address] | [place] | [phone] | | [facility] | | [address] | | | - LABORATORY | | | | + + + + + | [facility] | [address] | [place] | | | [facility] | | [id number] [place] [address] | | | - LABORATORY | | [...] ST. | [address] | [place] | [phone] | | [facility] | | [address] | | | - LABORATORY | | | | + + + + + | [facility] | [address] | [place] | | | [facility] | | [address] [place] [address] | | | - LABORATORY | | | | + + + + + documented in this encounter Visit Diagnoses Not on filedocumented in this encounter"
--- OUTSIDE RECORDS SUMMARY | ~2020-07-03 | XMS | Encounter Summary ---
Demographics + + + | Address | [address] [facility] | | | [place] [address] | + + + | Home Phone [...] [place] | | | | | [address] | | + + + + + Care Team Providers + +------+ + | Care Mining Support Worker Name | Role | Phone [...] | SLEEP DISORDER 401 | [address] | | | | | [address] [place] | [place] | | | | | [place] [address] | [address] | | | | | [phone] | | | +--------+ + + + [...] PDTTjt was last seen in our o [facility] on 04/30/2015. He did not [...] PA-C eleph one Encounter - Gail Cadet, Stone Splitter - 07/15/2016 8:37 AM PDTCalled to resched ule patient's no show appointment unable to contact all numbers are disconnected. Electronic ally signed by Leidy Wong at 07/15/2016 8:37 AM PDTdocumented in this encounter Plan of Treatment Not on filedocumented as of this encounter Visit Diagnoses Not on filedocumented in this encounter"
--- OUTSIDE RECORDS SUMMARY | ~2020-07-03 | XMS | Encounter Summary ---
Demographics + + + | Address | [address] [facility] | | | [place] [address] | + + + | Home Phone [...] [place] | | | | | [address] | | + + + + + Care Team Providers + +------+ + | Care Canvas Goods Fabricator Name | Role | Phone | [...] [place] | | | | | | [address] | | | | | | [phone] | | | +--------+ + + + [...]
--- OUTSIDE RECORDS SUMMARY | ~2020-07-03 | XMS | Encounter Summary ---
Demographics + + + | Address | [address] [facility] | | | [place] [address] | + + + | Home Phone [...] [place], [place] | | | | | [address] | | + + + + + Care Team Providers + +------+ + | Care Teradata Architect Name | Role | Phone | + +------+ + PCP | Unavailable | + +------+ + Encounter Details +--------+ + + + + | Date | Type | Department | Care Team | Description | +--------+ + + + + | 12/22/ | Hospital | [facility] | | | | 1993 - | Encounter | MED CTR GENERIC PSY | | | | | | CONV DEPT [address] | | | | 12/25/ | | [place], | | | | 1993 | | [place] [address] | | | | | | [phone] | | | +--------+ + + + [...]
--- OUTSIDE RECORDS SUMMARY | ~2020-07-03 | XMS | Encounter Summary ---
Demographics + + + | Address | [address] [facility] | | | [place] [address] | + + + | Home Phone [...] [place] | | | | | [address] | | + + + + + Care Team Providers + +------+ + | Care Inventory Checker Name | Role | Phone | [...] + | 07/19/ | Office | [facility] | Desiree Peterson DO | Syncope, unspecified | | 2019 | Visit | CARDIOLOGY [place] | [address] | syncope type | | | | [address] | [place], [place] | (Primary Dx); | | | | [address] [place] | [address] | Essential | | | | [place] | | hypertension; | | | | [address] | | Irregular heartbeat | | | | [phone] | | | +--------+---------+ + + + [...] DO - 07/19/2019 10:40 AM PDT [facility] Cardiology Cardiology Follow Up Note [...] rtake in exercise. She recently got a [employer]ua and has been walking him more regularly. [...] by mouth daily. Blood Glucose Monitoring Suppl (jobandtalent VERIO FLEX SYSTEM) w/Device KIT by Does not ap ply route. budesonide-formoterol (SYMBICORT) 160-4.5 MCG/ACT inhaler Inhale 2 puffs into the lungs 2 (two) times daily. Calcium Carbonate Antacid 1000 MG tablet Take 1,000 mg by mouth 3 (three) times daily. Cholecalciferol (VITAMIN D3) 32041 units CAPS Take by mouth once a [...]
--- OUTSIDE RECORDS SUMMARY | ~2020-07-03 | XMS | Encounter Summary ---
Demographics + + + | Address | [address] [facility] | | | [place] [address] | + + + | Home Phone [...] [place] | | | | | [address] | | + + + + + Care Team Providers + +------+ + | Care Lot Associate Name | Role | Phone | [...] + + | 09/10/ | Documentati | [facility] | Katharine Moncada, | Other (urgent | | 2019 | on | CARDIOLOGY [place] | Technologist | report) | | | | [address] | | | | | | [place] | | | | | | [address] | | | | | | [phone] | | | +--------+ + + + [...]
--- OUTSIDE RECORDS SUMMARY | ~2020-07-03 | XMS | Encounter Summary ---
Demographics + + + | Address | [address] [facility] | | | [place] [address] | + + + | Home Phone [...] [place] | | | | | [address] | | + + + + + Care Team Providers + +------+ + | Care Supervisor Fur Dressing Name | Role | Phone | + +------+ + PCP | Unavailable | + +------+ + Encounter Details +--------+ + + + + | Date | Type | Department | Care Team | Description | +--------+ + + + + | 02/28/ | Hospital | [facility] | Deon Gonzales | | | 2011 | Encounter | MED CTR SLEEP | MD [place] | | | | | [place] [address] | [address] [place] | | | | | [place], [place] | [place] [address] | | | | | [address] | [phone] | | | | | [phone] | | | +--------+ + + + [...] - 02/29/2012 2:36 PM PDTDATE: 02/29/2012 cc: [facility] Sleep Center Deon Gonzales Jr., MD, [facility] POSITIVE PRESSURE TITRATION STUDY CLINICAL INFORMATION: [...] the patient scored 18 points on the [place] Sleepiness Scale, which endorses a severe degree [...] advised. Deon Gonzales Jr., MD, FAASM Diplomate [place] Board of Internal Medicine Diplomate in Sleep Medicine Automotive Light Mechanic, Delicia [facility] Sleep Disorders Center Clinical Mixing Picker Tender [facility], [facility] JOB #: [id number] EXT JOB #:[id number] EDITED: 03/03/2012 07:26 <Electronically Signed by Deon Gonzales MD> 03/03/12 0848 documented in this encounter Plan of Treatment Not on filedocumented as of this encounter Visit Diagnoses Not on filedocumented in this encounter"
--- OUTSIDE RECORDS SUMMARY | ~2020-07-03 | XMS | Encounter Summary ---
Demographics + + + | Address | [address] [facility] | | | [place] [address] | + + + | Home Phone [...] [place] | | | | | [address] | | + + + + + Care Team Providers + +------+ + | Care Apparel Stock Checker Name | Role | Phone | [...] [place] | | | | | | [address] | | | | | | [phone] | | | +--------+ + + + [...]
--- OUTSIDE RECORDS SUMMARY | ~2020-07-03 | XMS | Encounter Summary ---
Demographics + + + | Address | [address] [facility] | | | [place] [address] | + + + | Home Phone [...] [place] | | | | | [address] | | + + + + + Care Team Providers + +------+ + | Care Supervisor Wood Room Name | Role | Phone | + [...] + + | 10/22/ | Telephone | [facility] | Susu Peralta, | Other | | 2019 | | CARDIOLOGY [place] Nath RN | | | | | [address] | | | | | | [facility] | | | | | | [address] | | | | | | [phone] | | | +--------+ + + + [...]
--- OUTSIDE RECORDS SUMMARY | ~2020-07-03 | XMS | Encounter Summary ---
Demographics + + + | Address | [address] [facility] | | | [place] [address] | + + + | Home Phone [...] [place] | | | | | [address] | | + + + + + Care Team Providers + +------+ + | Care Citrus Peeler Name | Role | Phone | [...] | | | spondylolist | | [address] | | | | | hesis | | [place], | | | | | Spinal | | [place] [address] | | | | | stenosis, | | Phone: | | | | | lumbar | | [phone] | | | | | region, | | Fax: | | | | | without | | [phone] | | | | | neurogenic | [...] + + | 07/02/ | Surgery | [facility] | Frandy Teresa, | MIS L5-S1 | | 2013 | | MED CTR OR INTRA OP | DO [address] | TRANSFORAMINAL | | | | [address] | [address] | LUMBAR INTERBODY | | | | [place], [place] | [address] | FUSION | | | | [address] | | | | | | [phone] | | | +--------+---------+ + + + [...] for discharge to SNF. DISPOSITION: SNF ([facility]) DISCHARGE MEDICATIONS Medications prior to admission [...] Take 15 mg by mouth nightl y. [place]-3 Fatty Acids (FISH OIL CONCENTRATE) 1000 MG [...] + + + +---------+ + + | [place]-3 Fatty | Take 1,000 mg by | [...] Lynn PA-C - 07/04/2014 7:43 AM PDT [facility] PROGRESS NOTE Pt. Name/Age/: Cindy Arndt 58 y.o. 1955 Med. Record Number: [id number] Date of admission: 07/02/2014 Subjective: The patient [...] mari drain and riley cath today. D/c gre instructor. Patient Active Problem List Diagnosis LUMBAR DISC [...] Nicole, 07/04/2014 7:45 [facility] Chris Lynn PA-C - 07/03/2014 7:13 AM PDT . [facility] PROGRESS NOTE Pt. Name/Age/: Cindy Arndt 58 y.o. 1955 Med. Record Number: [id number] Date of admission: 07/02/2014 Subjective: The patient [...] Electronically signed by: Chris Nicole, 07/03/2014 7:13 [facility] - 07/03/2014 6:50 [...] signed by: Frandy Teresa DO, 07/02/2014 11:15 [facility] signed by Frandy Teresa DO at 06/2014 11:15 AM PDTDreyFrandy tim DO - 07/02/2014 11:15 AM [id number] [facility], [address] [place] [address] FAX: NEUROSURGERY HISTORY AND PHYSICAL EXAMINATION CHIEF [...] Take 15 mg by mouth nigh tly. [place]-3 Fatty Acids (FISH OIL CONCENTRATE) 1000 MG [...] 5 5 Ulnar Intrinsics 5 5 Retail Sales Assistant Strength 5 5 Hip Flexion 5 [...] documented in this en counter Procedure Notes [facility] - 07/12/2014 12:00 AM PDT 14 1[facility] - 07/04/2014 12:00 AM PDT [facility] - 07/02/2014 12:00 AM PDT documented in this encounter Miscellaneous Notes Plan of Care - [facility] - 07/12/2014 12:00 AM PDT iscellaneous - [facility] 07/12/2014 12:00 AM PDTElec tronically signed by Mariah Schulte at 07/12/2014 1:45 PM PDTMiscellaneous - [facility] - 07/12/2014 12:00 AM PDT i scellaneous - [facility] 07/12/2014 12:00 AM PDT lan of Care - Germaine Louis RN - 07/05/2014 5:00 PM PDTProb honey: General Plan of Care (Adult, Obstetrics) Goal: Care Plan Shift Summary & Review . Outcome: Adequate for Discharge Date Met: 07/05/14 [facility]. 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 has all [...] none PCP: Natalee Andersen [facility] transferring to: [facility] Provider after transfer: PCP and Dr. Frandy Teresa CODE STATUS: [x] Attempt CPR [] Do not resuscitate If patient is pulseless and not breathing, RN/HAY SORTER may pronounce . Advanced Directives included: [] [...] for this patient. Diet: [] As tolerated FRONT OFFICE CLERK may upgrade or downgrade diet as condition Indicates. [x] RN may downgrade diet as indicated. Type: [] Continue current diet of: Diet and Supplements Diet DIET CONSISTENT CARBOHYDRATE Number of Occurrences: -1 Days [] Other: Consistency/Precautions: [] Whole [] Thin Liquids [] Cut-up [] [place]ham Thick [] Advanced Chopped [] Honey Thickened [] Chopped [] Advanced Ground [] 1:1 feedings [] Ground/Pureed [] Other: Tube Feedings: [] PEG [] GT [] JT [] NGT [] Formula type: (Commercial Plumber may change/substitute if indicated). [] Continuous Rate: [...] & Management for: ____same as above [] FRONT OFFICE CLERK Evaluation &Management for: [] Other: Wound/Skin Care: [...] Take 15 mg by mouth ni linda. [place]-3 Fatty Acids (FISH OIL CONCENTRATE) 1000 MG [...] Chris Nicole PA-C, certify that post hospital jail care is medically nec essary on a continuing basis for any of the conditions for which he/she received care during this hospitalization. Check one: [x] Skilled [] Intermediate Additional Orders/Instructions: Physician's signature:__Chris Nicole PA-C 07/05/2014 13:18 [facility] USE ONLY: [] Admitting [...] tolerate progressive walking and doing stairs du [facility] hospital stay due to multiple pain c/o. Attempted to see pt. 1145, however had just rec eived pain medication and requested PT return, SPL 9/10. At 1205 pt contacted PT for assist OOB due to left LE spasms and need for position change. Sitting at EOB on arrival, LAND MANAGER pres ent. Pt. donned LSO brace, [...] of endurance. When patient is walking in [facility] with a regular FWW she has to stop frequently and states she feels very weak, like sh e may fall. Patient lives alone. Outpatient prescriptions are filled at [facility] in [facility]. Electronically signed by: Franca Narvaez RN 07/05/2014 10:43 lan of [facility] Layne Rivers - 07/05/2014 10:39 AM PDTFaxed referral to [facility] Stout and Lidia Tran. [place] : [id number] and [place]: [id number] Electronically signed by: Layne Collado 07/05/2014 10:40 Received a call from [facility]. They can accept Cindy. Received a call from [facility] Tr[facility] and they can't accept Cindy. Tanna from [facility] called and they don't have any beds at this time Electronically signed by: Layne Collado 07/05/2014 12:22 Started the SNF packet. 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 has all necessary equipment) Planned Interventions: ADL retraining;transfer training Patient Status/Goals Reflects last filed data of patient status; may be from multiple contributors. 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 Pt has been using SURGICAL PHYSICIAN ASSISTANT and pain pills during the night. Zofran [...] herself in a small apartment in [place]. Patient states she has her apartment set [...] come from [facility] in [place]. She states the Said she might benefit [facility] upon discharge. She would like me to contact [facility] to giv e them a heads up. I called and spoke to Summer at [facility] , told her patients PCP i [...] Pt. resting in bed on arrival, used SURGICAL PHYSICIAN ASSISTANT x 2 during session. SPL /10. Pt. hoping to urinate mortgage loan officer originator to straight cath. 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 has all [...] & Review . Outcome: Progressing Pt using SURGICAL PHYSICIAN ASSISTANT and PO pain pills, c/o numbness on [...] and on a continuous oximeter for her SURGICAL PHYSICIAN ASSISTANT. She was unable to do her IS because o f the medications. She has the IS at bedside with a goal of 2400. She did not require additi onal respiratory care throughout the evening. p Note - Frandy Teresa, DO - 07/02/2014 2:25 PM PDTDATE: 07/02/2014 SURGEON: Frandy Teresa MD. TEMP RECRUITER: ZANE Oh PREOPERATIVE DIAGNOSES 1. Spondylolisthesis, L5-S1. [...] x 26 mm Capstone PEEK cage from [employer] was chosen. It was filled with Infus [...] Note Cindy Arndt 58 y.o. female 1955 [id number] Proc. Date 07/02/2014 Preop Dx Spondylolisthesis L5-S1 Postop Dx same Procedure Procedure(s):MIS L5-S1 TRANSFORAMINAL LUMBAR INTERBODY FUSION Anesthesia General Surgeon Frandy Teresa DO Management Associate ZANE Oh EBL 100 mL Findings Findings consistent with scheduled procedure. No other abnormalities found. Complications none Specimens * No specimens in log * Drains Electronically signed by: Frandy Teresa DO 07/02/2014 14:22 [facility] documented in this en counter Plan [...] + | [facility] | [address] | [place] | [phone] | | [facility] | | [address] | | | - LABORATORY | | | | + + + + + | [facility] | [address] | [place] | | | [facility] | | [id number] [...] + | [facility] | [address] | [place], [place] | [phone] | | [facility] | | [address] | | | - LABORATORY | | | | + + + + + | [facility] | [address] | [place], [place] | | | [facility] | | [phone] [...] + | [facility] | [address] | [place] | [phone] | | [facility] | | [address] | | | - LABORATORY | | | | + + + + + | [facility] | [address] | [place], [place] | | | [facility] | | [address], [facility] | | | - LABORATORY | [...] + | [facility] | [address] | [place] | [phone] | | [facility] | | [address] | | | - LABORATORY | | | | + + + + + | [facility] | [address] | [place], [place] | | | [facility] | | [phone] [...] [address] | [place] | [phone] | | [facility] | | [address] | | | - LABORATORY | | | | + + + + + | [facility] | [address] | [place] | | | [facility] | | [phone] [...] + | [facility] | [address] | [place], [place] | [phone] | | [facility] | | [address] | | | - LABORATORY | | | | + + + + + | [facility] | [address] | [place], [place] | | | [facility] | | [address] | | | - [...] [address] | [place] | [phone] | | [facility] | | [address] | | | - LABORATORY | | | | + + + + + | [facility] | [address] | [place] | | | [facility] | | [address], [facility] | | | - LABORATORY | [...] + | [facility] | [address] | [place], [place] | [phone] | | [facility] | | [address] | | | - LABORATORY | | | | + + + + + | [facility] | [address] | [place], [place] | | | [facility] | | [id number] [place] [address] | | | - LABORATORY | | [...] + | [facility] | [address] | [place], [place] | [phone] | | [facility] | | [address] | | | - LABORATORY | | | | + + + + + | [facility] | [address] | [place], [place] | | | [facility] | | [address] [...] | of hardware for posterior fusion from [id number] S1 with interbody hardware at L5-S1. The [...] S1 with improved alignment.Dictated and Signed by: Wlof Calabrese MD Electronically | | signed: 07/03/2014 [...] + | MISCELLANEOUS LAB | | | [phone] | + +---------+ + + | MISCELANIOUS LAB | | | [phone] | + +---------+ + + POC Glucose [...] + | [facility] | [address] | [place], [place] | [phone] | | [facility] | | [address] | | | - LABORATORY | | | | + + + + + | [facility] | [address] | [place] | | | [facility] | | [address] [...] + | [facility] | [address] | [place] | [phone] | | [facility] | | [address] | | | - LABORATORY | | | | + + + + + | [facility] | [address] | [place], [place] | | | [facility] | | [phone] [...] [address] | [place] | [phone] | | [facility] | | [address] | | | - LABORATORY | | | | + + + + + | [facility] | [address] | [place] | | | [facility] | | [address], [facility] | | | - LABORATORY | [...] + | [facility] | [address] | [place] | [phone] | | [facility] | | [address] | | | - LABORATORY | | | | + + + + + | [facility] | [address] | [place], [place] | | | [facility] | | [address], [facility] | | | - LABORATORY | [...] [address] | [place] | [phone] | | [facility] | | [address] | | | - LABORATORY | | | | + + + + + | [facility] | [address] | [place] | | | [facility] | | [address] [...] | | [facility] | | [address] | | | - BLOOD BANK | [...] mLs | | Surgical | | 1:200,000 0.25-1:273155 % | | 14 12:42 | | [...]
--- OUTSIDE RECORDS SUMMARY | ~2020-07-03 | XMS | Encounter Summary ---
Demographics + + + | Address | [address] [facility] | | | [place] [address] | + + + | Home Phone [...] [place] | | | | | [address] | | + + + + + Care Team Providers + +------+ + | Care Manager File Name | Role | Phone | + +------+ + PCP | Unavailable | + +------+ + Encounter Details +--------+ + + + + | Date | Type | Department | Care Team | Description | +--------+ + + + + | 04/16/ | Hospital | [facility] | Deon Gonzales | | | 2005 | Encounter | MED CTR SLEEP | MD [place] | | | | | [place] [address] [place] | | | | | [place], [place] | [place] [address] | | | | | [address] | [phone] | | | | | [phone] | | | +--------+ + + + [...]
--- OUTSIDE RECORDS SUMMARY | ~2020-07-03 | XMS | Encounter Summary ---
Demographics + + + | Address | [address] [facility] | | | [place] [address] | + + + | Home Phone [...] [place], [place] | | | | | [address] | | + + + + + Care Team Providers + +------+ + | Care Editorial Assistant Name | Role | Phone | + +------+ + PCP | Unavailable | + +------+ + Encounter Details +--------+ + + + + | Date | Type | Department | Care Team | Description | +--------+ + + + + | 02/24/ | Hospital | [facility] | | | | 1997 - | Encounter | MED CTR GENERIC PSY | | | | | | CONV DEPT [address] | | | | 02/26/ | | [place], | | | | 1997 | | [place] [address] | | | | | | [phone] | | | +--------+ + + + [...]
--- OUTSIDE RECORDS SUMMARY | ~2020-07-03 | XMS | Encounter Summary ---
Demographics + + + | Address | [address] [facility] | | | [place] [address] | + + + | Home Phone [...] [place] | | | | | [address] | | + + + + + Care Team Providers + +------+ + | Care Roll On Worker Name | Role | Phone | [...] [id number] | | | | | | [place], [place] | | | | | | [address] | | | | | | [phone] | | | +--------+ + + + [...] [facility] | [address] | [place] [address] | | | PATHOLOGY | [address] [...] Re | | | | | | [phone] | | | | + + + + + + + + | Specimen | + + | | + + + + + + + | Performing | Address | City/State/Zipcode | Phone Number | | Organization | | | | + + + + + | [facility] | [address] | [place] [address] | | | PATHOLOGY | [address] [...] Re | | | | | | [phone] | | | | + + + + + + + + | Specimen | + + | | + + + + + + + | Performing | Address | City/State/Zipcode | Phone Number | | Organization | | | | + + + + + | [facility] | [address] | [place] [address] | | | PATHOLOGY | [address] [...] Re | | | | | | [phone] | | | | + + + + + + + + | Specimen | + + | | + + + + + + + | Performing | Address | City/State/Zipcode | Phone Number | | Organization | | | | + + + + + | [facility] | [address] | [place] [address] | | | PATHOLOGY | [address] [...] Re | | | | | | [phone] | | | | + + + + + + + + | Specimen | + + | | + + + + + + + | Performing | Address | City/State/Zipcode | Phone Number | | Organization | | | | + + + + + | [facility] | [address] | [place] [address] | | | PATHOLOGY | [address] | | | + + + + + documented in this encounter Visit Diagnoses Not on filedocumented in this encounter"
--- OUTSIDE RECORDS SUMMARY | ~2020-07-03 | XMS | Encounter Summary ---
Demographics + + + | Address | [address] [facility] | | | [place] [address] | + + + | Home Phone [...] [place] | | | | | [address] | | + + + + + Care Team Providers + +------+ + | Care Supervisory Aide Name | Role | Phone | + +------+ + PCP | Unavailable | + +------+ + Encounter Details +--------+ + + + + | Date | Type | Department | Care Team | Description | +--------+ + + + + | 02/02/ | Hospital | [facility] | | | | 1997 | Encounter | MED CTR EMERGENCY | | | | | | CENTER [address] | | | | | | [place] | | | | | | [address] | | | | | | [phone] | | | +--------+ + + + [...]
--- OUTSIDE RECORDS SUMMARY | ~2020-07-03 | XMS | Encounter Summary ---
Demographics + + + | Address | [address] [facility] | | | [place] [address] | + + + | Home Phone [...] [place] | | | | | [address] | | + + + + + Care Team Providers + +------+ + | Care Instructor Military Science Name | Role | Phone | [...] as of this encounter Procedure Notes Interface, Basin Cleaner In - 10/24/2006 3:[address] [phone] [facility] OPERATION RECORD Med Rec No.: [id number] Date: [...] | Transcriptions | + + | Interface, Basin Cleaner In - 10/24/2006 3:09 AM PST | | [address] | | [place], [place] [address] [place] | | [facility]ATION RECORDMed Rec [...]
--- OUTSIDE RECORDS SUMMARY | ~2020-07-03 | XMS | Encounter Summary ---
Demographics + + + | Address | [address] [facility] | | | [place] [address] | + + + | Home Phone [...] [place] | | | | | [address] | | + + + + + Care Team Providers + +------+ + | Care Industrial Electrical Engineer Name | Role | Phone [...] [place] | | | | | | [address] | | | | | | [phone] | | | +--------+ + + + [...]
--- OUTSIDE RECORDS SUMMARY | ~2020-07-03 | XMS | Encounter Summary ---
Demographics + + + | Address | [address] [facility] | | | [place] [address] | + + + | Home Phone [...] [place] | | | | | [address] | | + + + + + Care Team Providers + +------+ + | Care Kitchen Helper Name | Role | Phone | [...] as of this encounter Procedure Notes Interface, Armed Security Professional In - 11/04/2006 3:03 AM PST [address] [phone] [facility] OPERATION RECORD Med Rec No.: [id number] Date: 07/08/98 Name: Cindy Arndt ATTENDING SURGEON: Lazaro Tello M.D. Professor, hand heel seat fitter(S): Jose Dawson M.D. Fellow, Ophthalmology PREOPERATIVE DIAGNOSIS: [...] skin retractor was put in place. The [place] elevators were used to separate the orbicularis [...] | Transcriptions | + + | Interface, Armed Security Professional In - 11/04/2006 3:03 AM PST | | [facility] [facility] | | [place], [place] [address] [facility] | | ClinicsOPERATION RECORDMed Rec No.: [id number] Date: 07/08/98Name: Yris, | | PatriciaATTENDING SURGEON:Lazaro Tello M.D.Professor, OphthalmologyASSISTANT(S):oJse | | Doreen DawsonFellow, OphthalmologyPREOPERATIVE DIAGNOSIS: Complete [...] skin retractor was put in place. The [place] elevators wereused to separate the | | [...]
--- OUTSIDE RECORDS SUMMARY | ~2020-07-03 | XMS | Encounter Summary ---
Demographics + + + | Address | [address] [facility] | | | [place] [address] | + + + | Home Phone [...] [place] | | | | | [address] | | + + + + + Care Team Providers + +------+ + | Care Locomotive Lubricating Systems Clerk Name | Role | Phone | [...] | | | spondylolist | | [address] | | | | | hesis | | [place], | | | | | Spinal | | [place] [address] | | | | | stenosis, | | Phone: | | | | | lumbar | | [phone] | | | | | region, | | Fax: | | | | | without | | [phone] | | | | | neurogenic | [...] | | | | | [address] | [address] [place] | | | | | [place] | [address] | | | | | [address] | | | | | | [phone] | | | +--------+ + + + [...] +----+---+ + + | | 1 | [place] | | | | 2 | 43-degrees | | | | 3 | | | | | 1 | | | +----+---+ + + | | 1 | [place] off | | | | 4 | [...] EVALUATION Cindy Arndt 58 y.o. female 1955 [id number] Procedure: Procedure(s):MIS L5-S1 TRANSFORAMINAL LUMBAR INTERBODY FUSION [...] EVALUATION Cindy Arndt 58 y.o. female 1955 [id number] Scheduled procedure LAMINECTOMY PLIF/TLIF INSTRUMENTATION [184] - MIS L5-S1 TRANSFORAMINAL LUMBAR INTERBODY FUSION Medical history, anesthesia, medications, allergy histories reviewed. ECG reviewed. Labs reviewed. ROS / Med History Ane (+) PONV. NPO status verified. CV (+) hypertension.(-) CAD, past [place], CHF, congenital heart disease, pulmonary hypertension, p [...]
--- OUTSIDE RECORDS SUMMARY | ~2020-07-03 | XMS | Encounter Summary ---
Demographics + + + | Address | [address] [facility] | | | [place] [address] | + + + | Home Phone [...] [place] | | | | | [address] | | + + + + + [...] + + | 08/08/ | Telephone | [facility] | Ashley Chávez | Other (Questions | | 2019 | | CARDIOLOGY GENESIS Abad, Furniture Maker | about coverage. ) | | | | [address] | | | | | | [place] | | | | | | [address] | | | | | | [phone] | | | +--------+ + + + [...] Miscellaneous Notes Telephone Encounter - Ashley Chávez, Furniture Maker - 08/08/2019 10:58 AM Seferino kristin called and wanted to know if her monitor needed to be AUTHORIZED. I asked Danelle and she said that because she had medicare part A and B, it does not need kayode or auth. I told this information to the patient, patient stated understanding. BRODY[facility] Plan of Treatment Not on filedocumented as of this encounter Visit Diagnoses Not on filedocumented in this encounter"
--- OUTSIDE RECORDS SUMMARY | ~2020-07-03 | XMS | Encounter Summary ---
Demographics + + + | Address | [address] [facility] | | | [place] [address] | + + + | Home Phone [...] [place] | | | | | [address] | | + + + + + Care Team Providers + +------+ + | Care Tool Clerk Name | Role | Phone | + +------+ + PCP | Unavailable | + +------+ + Encounter Details +--------+ + + + + | Date | Type | Department | Care Team | Description | +--------+ + + + + | 08/21/ | Hospital | [facility] | | | | 1996 | Encounter | MED [facility] LABORATORY | | | | | | [address] | | | | | | [place] | | | | | | [address] | | | | | | [phone] | | | +--------+ + + + [...]
--- OUTSIDE RECORDS SUMMARY | ~2020-07-03 | XMS | Encounter Summary ---
Demographics + + + | Address | [address] [facility] | | | [place] [address] | + + + | Home Phone [...] [place] | | | | | [address] | | + + + + + Care Team Providers + +------+ + | Care Systems Technologist Name | Role | Phone | + +------+ + PCP | Unavailable | + +------+ + Encounter Details +--------+ + + + + | Date | Type | Department | Care Team | Description | +--------+ + + + + | 12/06/ | Hospital | [facility] | | | | 1994 | Encounter | MED CTR LAB[facility]ATORY | | | | | | [address] | | | | | | [place] | | | | | | [address] | | | | | | [phone] | | | +--------+ + + + [...]
--- OUTSIDE RECORDS SUMMARY | ~2020-07-03 | XMS | Encounter Summary ---
Demographics + + + | Address | [address] [facility] | | | [place] [address] | + + + | Home Phone [...] [place] | | | | | [address] | | + + + + + Care Team Providers + +------+ + | Care Developmental Psychologist Name | Role | Phone | + +------+ + PCP | Unavailable | + +------+ + Encounter Details +--------+ + + + + | Date | Type | Department | Care Team | Description | +--------+ + + + + | 02/22/ | Hospital | [facility] | | | | 1996 | Encounter | MED CTR EMER[facility]ENCY | | | | | | CENTER [address] | | | | | | [place] | | | | | | [address] | | | | | | [phone] | | | +--------+ + + + [...]
--- OUTSIDE RECORDS SUMMARY | ~2020-07-03 | XMS | Encounter Summary ---
Demographics + + + | Address | [address] [facility] | | | [place] [address] | + + + | Home Phone [...] [place] | | | | | [address] | | + + + + + Care Team Providers + +------+ + | Care Director Data Processing Name | Role | Phone | [...] + + | 08/16/ | Documentati | [facility] | Katharine Moncada, | Other (urgent | | 2019 | on | CARDIOLOGY GENESIS | Technologist | report) | | | | [address] | | | | | | [place] | | | | | | [address] | | | | | | [phone] | | | +--------+ + + + [...]
--- OUTSIDE RECORDS SUMMARY | ~2020-07-03 | XMS | Encounter Summary ---
Demographics + + + | Address | [address] [facility] | | | [place] [address] | + + + | Home Phone [...] [place] | | | | | [address] | | + + + + + Care Team Providers + +------+ + | Care Chemical Engineering Teacher Name | Role | Phone [...] + + | 05/08/ | Telephone | [facility] | Dora De La Torre | Testing | | 2020 | | CARDIOLOGY [place] | [place] [address] | | | | | [address] | [address] | | | | | [address] | [place] [address] | | | | | [place] | [phone] | | | | | [address] | | | | | | [phone] | | | +--------+ + + + [...]
--- OUTSIDE RECORDS SUMMARY | ~2020-07-03 | XMS | Encounter Summary ---
Demographics + + + | Address | [address] [facility] | | | [place] [address] | + + + | Home Phone [...] [place], [place] | | | | | [address] | | + + + + + Care Team Providers + +------+ + | Care Biology Department Chair Name | Role | Phone | + +------+ + PCP | Unavailable | + +------+ + Encounter Details +--------+ + + + + | Date | Type | Department | Care Team | Description | +--------+ + + + + | 05/23/ | Hospital | [facility] | | | | 1991 | Encounter | MED CTR XRAY [address] | | | [address] | | | | | | [place] [address] | | | | | | [phone] | | | +--------+ + + + [...]
--- OUTSIDE RECORDS SUMMARY | ~2020-07-03 | XMS | Encounter Summary ---
Demographics + + + | Address | [address] [facility] | | | [place] [address] | + + + | Home Phone [...] [place] | | | | | [address] | | + + + + + Care Team Providers + +------+ + | Care Edging Machine Operator Name | Role | Phone [...] [place] | | | | | | [address] | | | | | | [phone] | | | +--------+ + + + [...]
--- OUTSIDE RECORDS SUMMARY | ~2020-07-03 | XMS | Encounter Summary ---
Demographics + + + | Address | [address] [facility] [facility] | | | [place] [address] | + + + | Home Phone [...] [place] | | | | | [address] | | + + + + + Care Team Providers + +------+ + | Care Special Education Educational Assistant Name | Role | Phone | [...] | 07/30/ | Telephone | [facility] | Ashley Chávez | Other (Patient | | 2019 | | CARDIOLOGY GENESIS Abad, Fabric Machine Operator | concerns ) | | | | [address] | | | | | | [place] | | | | | | [address] | | | | | | [phone] | | | +--------+ + + + [...] Miscellaneous Notes Telephone Encounter - Ashley Chávez Fabric Machine Operator - 07/30/2019 1:40 PM PDTCalfabio norton to patient to advise of Dr. Peterson's notes. Patient stated understanding. BRODY:IRINA-SANJANA. el ephone Encounter - Ashley Chávez, Fabric Machine Operator - 07/30/2019 1:40 PM PDT----- Mess [...] Thanks ----- Message ----- From: Ashley Chávez Fabric Machine Operator Sent: 07/30/2019 11:47 To: Desiree Peterson [...]
--- OUTSIDE RECORDS SUMMARY | ~2020-07-03 | XMS | Encounter Summary ---
Demographics + + + | Address | [address] [facility] | | | [place] [address] | + + + | Home Phone [...] [place] | | | | | [address] | | + + + + + Care Team Providers + +------+ + | Care Billing Clerk Name | Role | Phone [...] | | [address] | [place], [place] | | | | | [place], [place] | [address] | | | | | [address] | | | | | | [phone] | | | +--------+ + + + [...] 0.83 m/s | | | MV Dec Chugach: 2.85 m/s2 MV DecT: 282.89 ms MV E Teoodro: 0.80 | | | m/s MV E/A Ratio: 0.96 E/E' Sept: 12.59 E' Lat: 0.08 m/s | | | E' Sept: 0.06 m/s RAP: 10 mmHg RV S': 0.11 m/s RVSP: | | | 27.96 mmHg TR maxP.96 mmHg TR Vmax: 2.11 m/s | | | Coffee Urn Attendant: Authenticated by: Desiree Peterson MD Report Date/Time: | | | -- [id number]:[id number] | | + + + + + [...] (A-L): 19.60 | | ml/m2LAAs A2C: 15.44 [id number] A-L A2C: 43.84 mlLAESV MOD A2C: 42.12 mlLALs A2C: | | 4.61 cmLAAs A4C: 14.18 [id number] A-L A4C: 38.73 mlLAESV MOD A4C: 37.04 mlLALs A4C: | | 4.41 cmRAAs: 12.15 [id number] A-L: 28.54 mlRAESV MOD: 28.66 mlRALs: 4.39 | | cmTAPSE: 2.42 cmAV Env.Ti: 293.94 msAV maxP.18 mmHgAV meanP.09 mmHgAV | | Vmax: 1.88 m/Eddie Vmean: 1.25 m/Eddie VTI: 36.84 cmAVA Vmax: 2.06 cm2AVA (VTI): | | 2.24 [id number] Vmax: 0.00 cm2/m2AVAI (VTI): 0.00 cm2/m2LVOT Env.Ti: 299.59 msLVOT | | maxP.52 mmHgLVOT meanP.65 mmHgLVSI Dopp: 38.55 ml/m2LVSV Dopp: 82.89 | | mlLVOT Vmax: 1.27 m/sLVOT Vmean: 0.91 m/sLVOT VTI: 27.27 cmMV A Teodoro: 0.83 m/sMV | | Dec Chugach: 2.85 m/s2MV DecT: 282.89 msMV E Teodoro: 0.80 m/sMV E/A Ratio: 0.96E/E' | | Sept: 12.59E' Lat: 0.08 m/sE' Sept: 0.06 m/sRAP: 10 mmHgRV S': 0.11 m/sRVSP: | | 27.96 mmHgTR maxP.96 mmHgTR Vmax: 2.11 m/s Coffee Urn Attendant:Authenticated by: | | Desiree Peterson MDReport Date/Time: -- [id number]:[id number] IMPRESSION: 1. Overall left | | ventricular [...] A Teodoro: 0.83 m/s | |MV Dec Chug[place]: 2.85 m/s2 | |MV DecT: 282.89 ms | |MV E Teodoro: 0.80 m/s | |MV E/A Ratio: 0.96 | |E/E' Sept: 12.59 | |E' Lat: 0.08 m/s | |E' Sept: 0.06 m/s | |RAP: 10 mmHg | |RV S': 0.11 m/s | |RVSP: 27.96 mmHg | |TR maxP.96 mmHg | |TR Vmax: 2.11 m/s | | | |Coffee Urn Attendant: | |Authenticated by: Desiree Peterson MD | |Report Date/Time: -- [id number]:[id number] | | | |IMPRESSION: | |1. Overall [...]
[~2020-07-03 18:27] MED LIST changes: +CYCLOBENZAPRINE5 MG PO
--- OUTSIDE RECORDS SUMMARY | 2020-07-03 18:30 | XMS ---
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 No recent Security Events currently on file CRITERIA MET - 6 ED Visits in 6 Months - [facility] - Has Care Guidelines - PDMP - [facility] - 2 Visits in 30 Days CARE PROVIDERS WAYNE CAMARGO Internal Medicine 09/07/2019-Current PHONE: [phone] SMITH DOMINGUEZ Counselor: Mental Health 05/21/2020-Current PHONE: [phone] Kenny Palafox [facility] Current PHONE: [phone] ANGELICA MELVIN Internal Medicine: Pulmonary Disease 05/21/2020-Current PHONE: Unknown Jose Ag [facility] 01/31/2019-Current PHONE: [phone] Guidelines Source: [employer] [facility] [place] Guidelines Date: 03/13/2019 Care Coordination: Mental health services are being provided by [employer].\T\nbsp; Please contact [employer] with mental health concerns.\T\nbsp; [place]: \T\nbsp; [place]: [phone]. Care History Medical/Surgical 06/02/[address] [facility] - LETTER FROM PATIENT PCP- [...] TO DR DOMINGUEZ IF NEEDED. DR DOMINGUEZ [phone] 05/26/[address] [facility] Patient stated that she was having chest discomfort and called [facility] and they told her to go to ED. Patient has a televisit with Dr. Dominguez on 05/27/2020 at 8:40 am. 05/21/[address] 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 Also, she has put in a Referral to have a CHW at [employer] work with her .\T\nbsp; Patient was just seen by Walk In provider, Ashley Sharp, yesterday, 05/20/2020 for skin issue.\T\ nbsp; Next PCP visit on 05/29/2020. E.D. VISIT COUNT (12 MO.) 27 [facility]. TOTAL 27 NOTE: Visits indicate total known visits. ED/UCC VISIT TRACKING (12 MO.) 07/03/2020 18:28 [place] [place] TYPE: Emergency COMPLAINT: - MEDICAL CLEARANCE 07/03/2020 09:58 [facility] [place] TYPE: Emergency COMPLAINT: - HIP PAIN/FALL 07/01/2020 07:41 [facility] [place] TYPE: Emergency COMPLAINT: - L HIP, LEG PAIN 06/24/2020 01:30 [facility] [place] TYPE: Emergency COMPLAINT: - HIP PAIN [...] of left hip, initial encounter - Other senior care (current) drug therapy - Allergy status to sulfonamides status 05/25/2020 12:32 [facility] [place] TYPE: Emergency COMPLAINT: - CHEST PAIN, DIZZINESS DIAGNOSES: - Gastro-esophageal reflux disease without esophagitis - Old myocardial infarction - Other senior care (current) drug therapy - 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 - Allergy status to sulfonamides status - detention (current) use of oral hypoglycemic [...] transient ischemic attack (TIA), and cere - detention (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 - Schizophrenia, unspecified - Type 2 diabetes mellitus with hyperglycemia - 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 (current) drug therapy - Gastro-esophageal reflux disease [...] status - Chest pain, unspecified 05/21/2020 04:15 [facility] [place] TYPE: Emergency COMPLAINT: - LIGHT HEADED DIAGNOSES: - 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 - Allergy status to sulfonamides status - Old myocardial infarction - Schizophrenia, unspecified - Type 2 diabetes mellitus with hyperglycemia - Shortness of breath - Allergy status to other drugs, medicaments and biological sub - Essential (primary) hypertension - 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 (current) drug therapy - detention (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 - Gastro-esophageal reflux disease without esophagitis 05/13/2020 19:47 [facility] [place] TYPE: Emergency COMPLAINT: - MEDICAL CLEARANCE DIAGNOSES: - Allergy status to other drugs, medicaments and biological sub - 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 (current) drug therapy - detention (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 of 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 - Encounter for other general examination - Essential (primary) hypertension - Gastro-esophageal reflux disease without esophagitis - detention (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 - Allergy status to sulfonamides status - Old myocardial infarction - Type 2 diabetes mellitus without complications 05/06/2020 06:05 [facility] [place] TYPE: Emergency COMPLAINT: - RAPID HEARTRATE DIAGNOSES: - Gastro-esophageal reflux disease without esophagitis - 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 - Allergy status to sulfonamides status - Essential (primary) hypertension - Allergy status to other drugs, medicaments and biological sub - Type 2 diabetes mellitus without complications - 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 - Palpitations - Old myocardial infarction - Other senior care (current) drug therapy 05/03/2020 19:00 [facility] [place] TYPE: Emergency COMPLAINT: - RAPID HEART RATE DIAGNOSES: - Allergy status to other drugs, medicaments and biological sub - Allergy status to sulfonamides status - Old myocardial infarction - Gastro-esophageal reflux disease without esophagitis - Essential (primary) hypertension - detention (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 of 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 - Type 2 diabetes mellitus with hyperglycemia - 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 - Palpitations - Other senior care (current) drug therapy 04/28/2020 18:43 [facility] [place] TYPE: Emergency COMPLAINT: - MEDICAL CLEARANCE DIAGNOSES: - Gastro-esophageal reflux disease without esophagitis - Allergy status to other drugs, medicaments and biological sub - Essential (primary) hypertension - Allergy status to sulfonamides status - Type 2 diabetes mellitus without complications - 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 (current) drug therapy - Hallucinations, unspecified - [...] 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 supervisor (current) drug therapy - Abrasion, left [...] Other senior care (current) drug therapy - Delusional disorders 10/22/2019 16:37 [facility] [place] TYPE: Emergency COMPLAINT: - MEDICAL CLEARANCE DIAGNOSES: - Type 2 diabetes mellitus without complications - Gastro-esophageal reflux disease without esophagitis - Old myocardial infarction - 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 (current) drug [...] Encounter for other general examination - Other senior care (current) drug therapy - Old myocardial infarction - Allergy status to other drugs, medicaments and biological sub - Essential (primary) hypertension - Allergy status to sulfonamides status 10/12/2019 11:18 [facility] [place] TYPE: Emergency COMPLAINT: - MEDICAL CLEARANCE DIAGNOSES: - Delusional disorders - Allergy status to sulfonamides status - Allergy status to other drugs, medicaments and biological sub - Gastro-esophageal reflux disease without esophagitis - Personal history of transient ischemic attack (TIA), and cere - Other senior care (current) drug therapy - Old myocardial infarction - Essential (primary) hypertension - Type 2 diabetes mellitus with hyperglycemia 10/11/2019 10:06 [facility] [place] TYPE: Emergency COMPLAINT: - MEDICAL CLEARANCE DIAGNOSES: - Essential (primary) hypertension - Delusional disorders - Old myocardial infarction - Delusional disorders - Allergy status to sulfonamides status - 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 (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 - Schizoaffective disorder, unspecified 09/28/2019 13:19 [facility] [place] TYPE: Emergency COMPLAINT: - MEDICAL CLEARANCE DIAGNOSES: - Type 2 diabetes mellitus without complications - Allergy status to other drugs, medicaments and biological sub - Old myocardial infarction - 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
== END 2020-07-03 21:10 | disposition home or self-care (01) ==
LOC: ED 18:27
DX: F25.9 Schizoaffective disorder, unspecified (principal); I10 Essential (primary) hypertension; K21.9 Gastro-esophageal reflux disease without esophagitis; E11.9 Type 2 diabetes mellitus without complications; Z86.73 Personal history of transient ischemic attack (TIA), and cerebral infarction without residual deficits; I25.2 Old myocardial infarction; Z88.2 Allergy status to sulfonamides; Z88.8 Allergy status to other drugs, medicaments and biological substances; Z79.899 Other long term (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; Z79.891 Long term (current) use of opiate analgesic; Z79.84 Long term (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 of 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
CPT/HCPCS: 99284

== ENCOUNTER 2020-08-08 11:05 | Emergency (ER) | payer MEDICARE ==
[~2020-08-08] VITALS: Ht 170.2 cm; Wt 90.7 kg
--- OUTSIDE RECORDS SUMMARY | ~2020-08-08 | XMS | Encounter Summary ---
Demographics + + + | Address | [address] | | | [place] [address] | + + + | Home Phone | | + + + | Preferred Language | Unknown | + + + | Marital Status | | + + + | Jew Affiliation | 1013 | + + + | Race | White | + + + | Ethnic Group | Not or | + + + Author + + + | Author | Located Within [facility] | | | and [place] | + + + | Organization | Located Within [facility] | | | and [place] | + + + | Address | Unknown | + + + | Phone | Unavailable | + + + Support + + + + + | Name | Relationship | Address | Phone | + + + + + | Araceli Sibley | ECON | [place], [place] | | | | | [address] | | + + + + + Care Team Providers + +------+ + | Care Band Instrument Repairer Name | Role | Phone | + +------+ + PCP | Unavailable | + +------+ + Encounter Details +--------+ + + + + | Date | Type | Department | Care Team | Description | +--------+ + + + + | 06/17/ | Hospital | [facility] | | | | 1991 - | Encounter | MED CTR GENERIC PSY | | | | | | CONV DEPT [address] | | | | 06/18/ | | [place], | | | | 1991 | | [place] [address] | | | | | | [phone] | | | +--------+ + + + [...]
--- OUTSIDE RECORDS SUMMARY | ~2020-08-08 | XMS | Encounter Summary ---
Demographics + + + | Address | [address] | | | [place] [address] | + + + | Home Phone | | + + + | Preferred Language | Unknown | + + + | Marital Status | Single | + + + | Yazidism Affiliation | Unknown | + + + | Race | White | + + + | Ethnic Group | Not or | + + + Author + + + | Author | [facility] | + + + | Organization | [facility] | + + + | Address | Unknown | + + + | Phone | Unavailable | + + + Support + + + + + | Name | Relationship | Address | Phone | + + + + + | Kelsy Bautista | ECON | [address] | | | | | [place] | | | | | [address] | | + + + + + Care Team Providers + +------+ + | Care Agriculture Extension Specialist Name | Role | Phone | + +------+ + PCP | Unavailable | + +------+ + Encounter Details +--------+ + + + + | Date | Type | Department | Care Team | Description | +--------+ + + + + | 07/03/ | Results | Registration [id number] | | | | 1996 | Only | [address] | | | | | | [address] Mailcode: [address] | | | | | | [place], [place] | | | | | | [address] | | | | | | [phone] | | | +--------+ + + + [...] | + +--------+ + + + | CBC TESTS 2 | Routin | 07/03/1997 | | Results for this | | | e | 11:54 AM | | procedure are in the | | | | PDT | | results section. | + +--------+ + + + | MICROBIOLOGY TESTS 1 | Routin | 07/03/1997 | | Results for this | | | e | 11:31 AM | | procedure are in the | | | | PDT | | results section. | + +--------+ + + + | MICROBIOLOGY TESTS 1 | Routin | 07/03/1997 | | Results for this | | | e | 11:31 AM | | procedure are in the | | | | PDT | | results section. | + +--------+ + + + | MICROBIOLOGY TESTS 1 | Routin | 07/03/1997 | | Results for this | | | e | 11:30 AM | | procedure are in the | | | | PDT | | results section. | + +--------+ + + + | MICROBIOLOGY TESTS 1 | Routin | 07/03/1997 | | Results for this | | | e | 11:30 AM | | procedure are in the | | | | PDT | | results section. | + +--------+ + + + documented in this encounter Results CBC TESTS 2 (07/03/1997 11:54 AM PDT) + + + + + + | Component | Value | Ref Range | Performed | Pathologist | | | | | At | Signature | + + + + + + | WHITE CELL | 7.2 | K/CU MM | | | | COUNT | | | | | + + + + + + | RED CELL | 4.05 | M/CU MM | | | | COUNT | | | | | + + + + + + | HEMOGLOBIN | 12.3 | GM/DL | | | + + + + + + | HEMATOCRIT | 36.4 (L) | % | | | + + + + + + | MCV | 89.8 | FL | | | + + + + + + | MCH | 30.4 | PG | | | + + + + + + | MCHC | 33.8 | GM/DL | | | + + + + + + | RDW | 12.1 | % | | | + + + + + + | PLATELET | 252. | K/CU MM | | | | COUNT | | | | | + + + + + + | MPV | 8.5 | FL | | | + + + + + + | NEUTROPHIL | 59. | % | | | | % | | | | | + + + + + + | LYMPHOCYTE | 27. | % | | | | % | | | | | + + + + + + | MONOCYTE % | 8. | % | | | + + + + + + | EOS % | 5. | % | | | + + + + + + | BASO % | 2. | % | | | + + + + + + | NEUTROPHIL | 4.3 | K/CU MM | | | | # | | | | | + + + + + + | LYMPHOCYTE | 1.9 | K/CU MM | | | | # | | | | | + + + + + + | MONOCYTE # | 0.5 | K/CU MM | | | + + + + + + | EOS # | 0.4 | K/CU MM | | | + + + + + + | BASO # | 0.1 | K/CU MM | | | + + + + + + | SEDIMENTATI | 15. | MM/HR | | | | ON RATE | | | | | + + + + + + + + | Specimen | + + | | + + + + + + + | Performing | Address | City/State/Zipcode | Phone Number | | Organization | | | | + + + + + | [facility] | [address] | [place] [address] | | | PATHOLOGY | [address] | | | + + + + + MICROBIOLOGY TESTS 1 (07/03/1997 11:31 AM PDT) + + + + + + | Component | Value | Ref Range | Performed | Pathologist | | | | | At | Signature | + + + + + + | CULTURE | Calcflr Wh Stain NO | | | | | RESULT | FUNGAL ELEMENTS | | | | | | SEENDiagnosis | | | | | | RULE OUT BREAST | | | | | | ABSCESSTest Ordered | | | | | | FUNGUS | | | | | | CULTUREOrdering Loc | | | | | | 717Spec | | | | | | Set Up Date 07/03Spec | | | | | | Set Up Time | | | | | | 13:36Specimen Type | | | | | | FLUIDSource Body Site | | | | | | BREASTReport Status | | | | | | FINALPrelim | | | | | | Result NO FUNGUS | | | | | | ISOLATED IN 2 | | | | | | WEEKSCulture Result | | | | | | NO FUNGUS ISOLATED IN | | | | | | 4 WEEKSDate Of Final Re | | | | | | [id number] | | | | + + + + + + + + | Specimen | + + | | + + + + + + + | Performing | Address | City/State/Zipcode | Phone Number | | Organization | | | | + + + + + | [facility] | [address] | [place] [address] | | | PATHOLOGY | [address] | | | + + + + + MICROBIOLOGY TESTS 1 (07/03/1997 11:31 AM PDT) + + + + + + | Component | Value | Ref Range | Performed | Pathologist | | | | | At | Signature | + + + + + + | CULTURE | Direct Smear AFB NO | | | | | RESULT | AFB SEENStain Used AFB | | | | | | | | | | | | FLUOROCHROMEDiagnosis | | | | | | RULE OUT | | | | | | BREAST ABSCESSTest | | | | | | Ordered ACID | | | | | | FAST BACILLI | | | | | | CULTUREOrdering Loc | | | | | | 717Spec | | | | | | Set Up Date 07/03Spec | | | | | | Set Up Time | | | | | | 13:36Specimen Type | | | | | | FLUIDSource Body Site | | | | | | BREASTReport Status | | | | | | FINALPrelim | | | | | | Result NO AFB | | | | | | ISOLATED IN 4 | | | | | | WEEKSCulture Result | | | | | | NO AFB ISOLATED IN 6 | | | | | | WEEKSDate Of Final Re | | | | | | [id number] | | | | + + + + + + + + | Specimen | + + | | + + + + + + + | Performing | Address | City/State/Zipcode | Phone Number | | Organization | | | | + + + + + | [facility] | [address] | [place] [address] | | | PATHOLOGY | [address] | | | + + + + + MICROBIOLOGY TESTS 1 (07/03/1997 11:30 AM PDT) + + + + + + | Component | Value | Ref Range | Performed | Pathologist | | | | | At | Signature | + + + + + + | CULTURE | Calcflr Wh Stain NO | | | | | RESULT | FUNGAL ELEMENTS | | | | | | SEENDiagnosis | | | | | | RULE OUT BREAST | | | | | | ABSCESSTest Ordered | | | | | | FUNGUS | | | | | | CULTUREOrdering Loc | | | | | | 717Spec | | | | | | Set Up Date 07/03Spec | | | | | | Set Up Time | | | | | | 13:17Specimen Type | | | | | | FLUIDSource Body Site | | | | | | BREASTReport Status | | | | | | FINALPrelim | | | | | | Result NO FUNGUS | | | | | | ISOLATED IN 2 | | | | | | WEEKSCulture Result | | | | | | NO FUNGUS ISOLATED IN | | | | | | 4 WEEKSDate Of Final Re | | | | | | [id number] | | | | + + + + + + + + | Specimen | + + | | + + + + + + + | Performing | Address | City/State/Zipcode | Phone Number | | Organization | | | | + + + + + | [facility] | [address] | [place] [address] | | | PATHOLOGY | [address] | | | + + + + + MICROBIOLOGY TESTS 1 (07/03/1997 11:30 AM PDT) + + + + + + | Component | Value | Ref Range | Performed | Pathologist | | | | | At | Signature | + + + + + + | CULTURE | Direct Smear AFB NO | | | | | RESULT | AFB SEENStain Used AFB | | | | | | | | | | | | FLUOROCHROMEDiagnosis | | | | | | RULE OUT | | | | | | BREAST ABSCESSTest | | | | | | Ordered ACID | | | | | | FAST BACILLI | | | | | | CULTUREOrdering Loc | | | | | | 717Spec | | | | | | Set Up Date 07/03Spec | | | | | | Set Up Time | | | | | | 13:17Specimen Type | | | | | | FLUIDSource Body Site | | | | | | BREASTReport Status | | | | | | FINALPrelim | | | | | | Result NO AFB | | | | | | ISOLATED IN 4 | | | | | | WEEKSCulture Result | | | | | | NO AFB ISOLATED IN 6 | | | | | | WEEKSDate Of Final Re | | | | | | [id number] | | | | + + + + + + + + | Specimen | + + | | + + + + + + + | Performing | Address | City/State/Zipcode | Phone Number | | Organization | | | | + + + + + | [facility] | [address] | [place] [address] | | | PATHOLOGY | [address] | | | + + + + + documented in this encounter Visit Diagnoses Not on filedocumented in this encounter"
--- OUTSIDE RECORDS SUMMARY | ~2020-08-08 | XMS | Encounter Summary ---
Demographics + + + | Address | [address] | | | [place] [address] | + + + | Home Phone | | + + + | Preferred Language | Unknown | + + + | Marital Status | | + + + | Judaism Affiliation | 1013 | + + + [...] [place] | | | | | [address] | | + + + + + Care Team Providers + +------+ + | Care Superintendent Seed Mill Name | Role | Phone | + [...] | | | spondylolist | | [address] | | | | | hesis | | [place], | | | | | Spinal | | [place] [address] | | | | | stenosis, | | Phone: | | | | | lumbar | | [phone] | | | | | region, | | Fax: | | | | | without | | [phone] | | | | | neurogenic | [...] + + | 07/02/ | Hospital | [facility] | Frandy Teresa, | Spinal stenosis, | | 2013 | Encounter | MED CTR XRAY [address] | DO [address] | lumbar region, | | | | [place] | [address] | without neurogenic | | | | [place] [address] | [id number] | claudication | | | | [phone] | | (Primary Dx) | +--------+ + [...] + + + +---------+ + + | [place]-3 Fatty | Take 1,000 mg by | [...]
--- OUTSIDE RECORDS SUMMARY | ~2020-08-08 | XMS | Encounter Summary ---
Demographics + + + | Address | [address] | | | [place] [address] | + + + | Home Phone [...] [place] | | | | | [address] | | + + + + + Care Team Providers + +------+ + | Care Clinical Nursing Coordinator Name | Role | Phone | + +------+ + PCP | Unavailable | + +------+ + Encounter Details +--------+ + + + + | Date | Type | Department | Care Team | Description | +--------+ + + + + | 04/27/ | Hospital | [facility] | Sage Garza MD | | | 2001 | Encounter | HOSPITAL EMERGENCY | | | | | | CENTER [address] [place], [place] | | | | | | [address] | | | | | | [phone] | | | +--------+ + + + [...]
--- OUTSIDE RECORDS SUMMARY | ~2020-08-08 | XMS | Encounter Summary ---
Demographics + + + | Address | [address] | | | [place] [address] | + + + | Home Phone [...] [place] | | | | | [address] | | + + + + + Care Team Providers + +------+ + | Care Planning And Analysis Manager Name | Role | Phone | + +------+ + | Natalee Andersen NP | PCP | | + +------+ + Reason for Visit + +--------+ + | Reason | Onset | Comments | | | Date | | + +--------+ + | Appointment | 02/27/ | New Patient | | | 2015 | | + +--------+ + Encounter Details +--------+ + + + + | Date | Type | Department | Care Team | Description | +--------+ + + + + | 02/27/ | Telephone | [facility] | Katharine Cardona PA-C | Appointment (New | | 2014 | | MEDICINE [address] [place] | Patient) | | | | [place], | [place] [address] | | | | | [place] [address] | [phone] | | | | | [phone] | | | +--------+ + + + [...] this encounter Miscellaneous Notes Telephone Encounter - Zelda Corrales RN - 02/27/2015 12:11 PM PDTCall placed to David plascencia regarding her new patient paperwork. Cindy was informed that Dr. Fry and Katharine Must PA do not generally prescribe narcotic medications for patients. Those patients are re ferred to [facility]. Cindy stated that would be fine with her. She stated she is 7 months post-back surgery per Dr. Teresa and only uses the hydrocodone and oxycodone occ asionally. She said she is trying to get off the oxycodone completely. Cindy said she saw Dr. Newman this morning to address her myositis issues. She agreed to referral to pain c analisa. Appointment scheduled for 03-06-15 with Katharine DEGROOT. documented in this encounter Plan of Treatment Not on filedocumented as of this encounter Visit Diagnoses Not on filedocumented in this encounter"
--- OUTSIDE RECORDS SUMMARY | ~2020-08-08 | XMS | Encounter Summary ---
Demographics + + + | Address | [address] | | | [place] [address] | + + + | Home Phone [...] + + + | Author | [facility] | | | and [place] | + + + | Organization | [facility] | | | and [place] | + + + | Address | Unknown | + + + | Phone | Unavailable | + + + Support + + + + + | Name | Relationship | Address | Phone | + + + + + | Araceli Sibley | ECON | [place] | | | | | [address] | | + + + + + Care Team Providers + +------+ + | Care Utility Person Name | Role | Phone | + +------+ + | Basim Bolanos MD | PCP | | + +------+ + Encounter Details +--------+ + + + + | Date | Type | Department | Care Team | Description | +--------+ + + + + | 01/24/ | Abstract | [facility] [place] | [facility], | | | 2012 | | GASTROENTEROLOGY | [place] [address] | | | | | [address] [place] | [address] | | | | | [address] [place], [place] | [place], [place] | | | | | [address] | [address] | | | | | [phone] | | | +--------+ + + + + Social History + +-------+ +--------+------+ | Tobacco Use | Types | Packs/Day | Years | Date | | | | | Used | | + +-------+ +--------+------+ | Never Smoker | | | | | + +-------+ +--------+------+ + + +---------+ + | Alcohol Use [...]
--- OUTSIDE RECORDS SUMMARY | ~2020-08-08 | XMS | Encounter Summary ---
Demographics + + + | Address | [address] | | | [place] [address] | + + + | Home Phone | | + + + | Preferred Language | Unknown | + + + | Marital Status | | + + + | Mormonism Affiliation | 1013 | + + + | Race | White | + + + | Ethnic Group | Not or | + + + Author + + + | Author | [facility] | | | and [place] | + + + | Organization | [facility] | | | and [place] | + + + | Address | Unknown | + + + | Phone | Unavailable | + + + Support + + + + + | Name | Relationship | Address | Phone | + + + + + | Araceli Sibley | ECON | [place], [place] | | | | | [address] | | + + + + + Care Team Providers + +------+ + | Care Technical Support Associate Name | Role | Phone | + +------+ + PCP | Unavailable | + +------+ + Encounter Details +--------+ + + + + | Date | Type | Department | Care Team | Description | +--------+ + + + + | 09/10/ | Hospital | [facility] | | | | 1992 | Encounter | MED CTR LABORATORY | | | | | | [address] | | | | | | [place] | | | | | | [address] | | | | | | [phone] | | | +--------+ + + + [...]
--- OUTSIDE RECORDS SUMMARY | ~2020-08-08 | XMS | Encounter Summary ---
Demographics + + + | Address | [address] [facility] [address] | | | [place] [address] | + + + | Home Phone [...] [place] | | | | | [address] | | + + + + + Care Team Providers + +------+ + | Care Instrument And Electrical Technician Name | Role | Phone | + +------+ + | Adriano Patrick MD | PCP | | + +------+ + Reason for Visit +--------+--------+ + | Reason | Onset | Comments | | | Date | | +--------+--------+ + | Other | 07/15/ | | | | 2015 | | +--------+--------+ + Encounter Details +--------+ + + + + | Date | Type | Department | Care Team | Description | +--------+ + + + + | 07/15/ | Telephone | [facility] | Russell Alfaro PA | Other | | 2016 | | SLEEP DISORDER [address] | [address] | | | | | [address] [place] | [place] | | | | | [place] [address] | [address] | | | | | [phone] | | | +--------+ + + + [...] this encounter Miscellaneous Notes Telephone Encounter - Russell Alfaro PA - 07/15/2016 1:34 PM PDTTjt was last seen in our [facility] on 04/30/2015. He did not cancel or show up for his appointment on 05/04/2016. We atte mpted to reschedule this no-show, but her phone number was disconnected. She has mild apnea and was doing well with her CPAP compliance at her last appointment. We will not make furt her attempts to schedule her, but we will follow up with her at her request. Russell Alfaro PA-C eleph one Encounter - Gail Cadet, [place] Maid - 07/15/2016 8:37 AM PDTCalled to resched ule patient's no show appointment unable to contact all numbers are disconnected. Electronic ally signed by Leidy Wong at 07/15/2016 8:37 AM PDTdocumented in this encounter Plan of Treatment Not on filedocumented as of this encounter Visit Diagnoses Not on filedocumented in this encounter"
--- OUTSIDE RECORDS SUMMARY | ~2020-08-08 | XMS | Encounter Summary ---
Demographics + + + | Address | [address] [facility] [address] | | | [place] [address] | + + + | Home Phone [...] [place] | | | | | [address] | | + + + + + Care Team Providers + +------+ + | Care Road Roller Operator Hot Mix Name | Role | Phone | + +------+ + | Adriano Patrick MD | PCP | | + +------+ + Reason for Visit + + + | Reason | Comments | + + + | Follow-up | URGENT PER PCP | + + + Encounter Details +--------+---------+ + + + | Date | Type | Department | Care Team | Description | +--------+---------+ + + + | 07/19/ | Office | [facility] | Desiree Peterson DO | Syncope, unspecified | | 2019 | Visit | CARDIOLOGY [place] | [address] | syncope type | | | | [address] | [place], [place] | (Primary Dx); | | | | [address] [place] | [address] | Essential | | | | [place] | | hypertension; | | | | [address] | | Irregular heartbeat | | | | [phone] | | | +--------+---------+ + + + [...] encounter Progress Notes Desiree Peterson DO - 07/19/2019 10:40 AM PDT [facility] Cardiology Cardiology Follow Up Note Reason for Consultation: Chest Pain Requesting Physician: Jose Ag History Obtained From: patient HISTORY OF PRESENT ILLNESS: Cardiac Problem List HTN HLD Bradycardia Non Cardiac Problem List Hepatosteatosis Obesity ROGERS DDD Schizophrenia Bipolar disorder GERD DM II Hypothyroidism The patient is a 63yo female who presents to the cardiology office [...] rtake in exercise. She recently got a Trineanua and has been walking him more regularly. [...] She also admits to intermittent LE swelling. Interim History Since I last saw the patient, she had an episode of syncope. On 06/27/2019 she reportedly was in the hospital, she went to the cafeteria and drank some milk after which she became n auseous. She went to the bathroom and vomited after which she passed out. She refused to g o to the ER and instead was referred to the cardiology office. She was seen by Dr. Coronado. It was felt that her syncopal episode was likely related to vasovagal event. She report s that she has had intermittent episodes of lightheadedness and dizziness and intermittent e pisodes of loss of consciousness. She did report that she had an episode of lightheadednes s while she was wearing her monitor. We discussed doing an extended monitor to ensure that she is not having any arrhythmias that could be contributing to her symptoms. She was in agreement to longer term monitoring. Review of Systems Constitutional: positive for fatigue. [...] by mouth daily. Blood Glucose Monitoring Suppl (netFactor VERIO FLEX SYSTEM) w/Device KIT by Does not ap ply route. budesonide-formoterol (SYMBICORT) 160-4.5 MCG/ACT inhaler Inhale 2 puffs into the lungs 2 (two) times daily. Calcium Carbonate Antacid 1000 MG tablet Take 1,000 mg by mouth 3 (three) times daily. Cholecalciferol (VITAMIN D3) 43316 units CAPS Take by mouth once a [...] No narrative on file PHYSICAL EXAM Vitals: 07/19/19 1040 BP: 116/70 Pulse: 85 SpO2: 93% Weight: (!) 136.5 kg (301 lb) Height: 1.702 m (5' 7") Physical [...] hemoglobin 14.3, hematocrit 42.7, platelet count 214. EK02/22/19 ordered and reviewed by myself normal [...] and supraventricular ectopy 4: No AV conduction abnormalities detected. 5: No ischemia detected. 6:Symptoms of "7 symptoms reported including dizziness, palpitations, chest discomfort, an d unspecified symptoms", associated with sinus rhythm and ventricular ectopy. ASSESSMENT & PLAN 1.Syncope 2. Palpitations 3. HTN 4. HLD 5. Bradycardia 6. Obesity 7. ROGERS 8. DDD 9. Schizophrenia/Bipolar disorder 10. DM II 11. Hypothyroidism -The patient is a 63-year-old female who presents to the cardiology office for follow up re garding a syncopal episode. She had a recent nuclear stress test which was a low risk study. She wore a 1 week event monitor which was negative for clinically significant arrhythmia. A nd a recent echocardiogram which was normal. We discussed doing a longer term monitor to ens ure that she does not have arrhythmia that could be contributing to her symptoms. -Obtain a one month event monitor -Continue atenolol 50 mg by mouth daily -Follow-up in 2 months Thank you for allowing me to participate in the care of this patient. Primary Care Physician: Jose Peterson DO 04/22/2019 documented in this enco unter Plan of Treatment + +------+--------+ + + | Name | Type | Priori | Associated Diagnoses | Order Schedule | | | | ty | | | + +------+--------+ + + | Event monitor - 4 | ECG | Routin | Syncope, | Expected: | | week | | e | unspecified syncope | 07/26/2019, Expires: | | | | | type | 07/19/2020 | + +------+--------+ + + documented as of this encounter Visit Diagnoses + + | Diagnosis | + + | Syncope, unspecified syncope type - Primary | + + | Essential hypertension Unspecified essential hypertension | + + | Irregular heartbeat Cardiac dysrhythmia, unspecified | + + documented in this encounter
--- OUTSIDE RECORDS SUMMARY | ~2020-08-08 | XMS | Encounter Summary ---
Demographics + + + | Address | [address] [facility] [address] | | | [place] [address] | + + + | Home Phone [...] [place] | | | | | [address] | | + + + + + Care Team Providers + +------+ + | Care Coffee Brewer Name | Role | Phone | + [...] + | 08/20/ | Documentati | [facility] | Katharine Moncada, | Other (urgent | | 2019 | on | CARDIOLOGY [facility] | Technologist | report) | | | | [address] | | | | | | [place] | | | | | | [address] | | | | | | [phone] | | | +--------+ + + + [...]
--- OUTSIDE RECORDS SUMMARY | ~2020-08-08 | XMS | Encounter Summary ---
Demographics + + + | Address | [address] [facility] [address] | | | [place] [address] | + + + | Home Phone | | + + + | Preferred Language | Unknown | + + + | Marital Status | | + + + | Mandaen Affiliation | 1013 | + + + [...] [place] | | | | | [address] | | + + + + + Care Team Providers + +------+ + | Care Ordnance Keeper Name | Role | Phone | + +------+ + PCP | Unavailable | + +------+ + Encounter Details +--------+ + + + + | Date | Type | Department | Care Team | Description | +--------+ + + + + | 09/23/ | Hospital | [facility] | | | | 1994 | Encounter | MED CTR LABORATORY | | | | | | [address] | | | | | | [place] | | | | | | [address] | | | | | | [phone] | | | +--------+ + + + [...]
--- OUTSIDE RECORDS SUMMARY | ~2020-08-08 | XMS | Encounter Summary ---
Demographics + + + | Address | [address] [facility] [address] | | | [place] [address] | + + + | Home Phone [...] [place] | | | | | [address] | | + + + + + Care Team Providers + +------+ + | Care Graduate Student Instructor Name | Role | Phone | + +------+ + PCP | Unavailable | + +------+ + Encounter Details +--------+ + + + + | Date | Type | Department | Care Team | Description | +--------+ + + + + | 02/02/ | Hospital | [facility] | | | | 1997 | Encounter | MED [facility] EMER[facility]Y | | | | | | CENTER [address] | | | | | | [place] | | | | | | [address] | | | | | | [phone] | | | +--------+ + + + [...]
--- OUTSIDE RECORDS SUMMARY | ~2020-08-08 | XMS | Encounter Summary ---
Demographics + + + | Address | [address] [facility] [address] [facility] [address] | | | [place] [address] | + + + | Home Phone [...] [place] | | | | | [address] | | + + + + + Care Team Providers + +------+ + | Care Dock Hand Name | Role | Phone | [...] + + | // | Emergency | [facility] | [place], | CVA (cerebral | | 2015 | | [facility] EMER[facility]Y | Davey Simons MD [address] | vascular accident) | | | | CENTER [address] | [address] [facility] | ([facility]) (Primary Dx) | | | | [place], [place] | [place] [address] | | | | | [address] | [phone] | | | | | [phone] | | | +--------+ + + + [...] + + + +---------+ + + | Gary-3 Fatty | Take 1,000 mg by | [...] might be differe nt from the original. [facility] Emergency Department Encounter Note [address] [place] [address] PCP:Natalee Andersen [phone] CHIEF COMPLAINT: Chief Complaint Patient presents with Facial Droop ED Room: ED07/ED07 [facility] Cindy Arndt is a 59 y.o. female who presents to the Emergency Department accompanied by a friend from [place] for evaluation. The patient recently had symptoms that were diagno sed as stroke or TIA. The symptoms were of a weakness and numbness in her right arm and leg . She was hospitalized for 4 days in [place] for this. She was discharged and subsequent ly has had 2 or 3 emergency department visits in [place] for symptoms diagnosed as TIAs. These have been recurrent and worsening right arm and leg weakness and then today with some right facial drooping and drooling. She is on Aggrenox. She had a full workup in [place] including brain CT, brain MRI, and carotid [...] Laterality: N/A; Surgeon: Frandy castellanos DO; Location: [facility] MAIN OR CURRENT MEDICATIONS Discharge Medication List [...] or Severe Contraindications. Consult references such as [employer] for furthe r information. Magnesium 250 MG [...] or Severe Contraindications. Consult references such as [employer] for further information. Multiple Vitamins-Minerals (CENTRUM SILVER PO) Take 1 tablet by mouth Daily.Historical Med OLANZapine zydis (ZYPREXA ZYDIS) 15 MG disintegrating tablet Take 15 mg by mouth nightly. Gary-3 Fatty Acids (FISH OIL CONCENTRATE) 1000 MG [...] review all of her imaging studies from [facility] ED COURSE & MEDICAL DECISION MAKING Pertinent Labs & Imaging studies were reviewed along with EMS notes and long-term record s if applicable. (See chart for details) Medications and Allergy list reviewed. Nurses note and old records were reviewed The patient was seen and examined, I was finally able to get her records from [facility] which showed a normal MRI and [...] accident) (HCC) Follow-up Information Follow up with [facility]. Specialty: Emergency Medicine Contact information: [address] [address] Follow up with [facility]. Specialty: Emergency Medicine Contact information: [address] [address] Follow up with Natalee Andersen NP. Specialty: Family Nurse Practitioner Contact information: [address] [place] [address] Schedule an appointment as soon as possible for a visit with Baudilio Newman MD. Specialty: Neurology Contact information: [address] [facility] [id number] Discharge Medication List as of 02/26/2015 15:21 Davey Varela MD 02/26/15 1732 do cumented in this encounter Miscellaneous Notes ED Triage Notes - Yesenia Monroy RN - 02/26/2015 1:11 PM PDTC/O right sided facial mahendra op and numbness to right arm and leg onset yesterday at approximately 1800. Pt was seen in [facility] by her primary care physician this morning [...] mL/min/1.73m2 | [facility] | | | [place] | RATE,ESTIMATED | | MEDICAL | | | | mL/min/1.71z3Lzcp than | | CENTER - | | [...] [address] | [place] | [phone] | | [facility] | | [address] | | | - LABORATORY | | [...] [address] | [place] | [phone] | | [facility] | | [address] | | | - LABORATORY | | [...] | ---- | | | 02/26/2015 13:[address] [facility] | | | Emergency -numbness/facial droop 02/26/2015 08:15 [facility] | | | [facility] 02/19/2015 | | | 10:15 [facility] | | | -Diabetes mellitus [...] as uncontrolled 02/17/2015 | | | 08:22 [facility] Emergency | | | -Long-term (current) use [...] and uterus 02/14/2015 | | | 09:56 [facility] Emergency | | | -Disturbance of skin [...] status 02/06/2015 10:46 | | | [facility] | | | -Generalized [...] residual deficits | | | 02/01/2015 21:38 [facility] | | | Emergency 01/22/2015 14:00 [facility] | | | Urgent Care -Myalgia and [...] intervertebral disc | | | 01/16/2015 12:15 [facility] | | | Urgent Care -Unspecified acquired [...] other | | | medications 01/07/2015 11:45 [facility] | | | Urgent Care -Unspecified acquired [...] acquired hypothyroidism 12/30/2014 | | | 17:54 [facility] Emergency | | | -Obstructive sleep [...] essential hypertension | | | 12/30/2014 14:30 [facility] | | | Urgent Care -Cramp of [...] | | -Cramp of limb 11/29/2014 16:15 [facility] | | | Urgent Care -Esophageal [...] ------ | | | --------- [address] [facility]. | | | [facility] 6 0 [facility]. | | | [facility] 7 0 Total | | | Note: Visits indicate total known visits. [place] Dx are the | | | number of primary diagnoses on the [facility]'s non-emergent dx list. | | | [...]
--- OUTSIDE RECORDS SUMMARY | ~2020-08-08 | XMS | Encounter Summary ---
Demographics + + + | Address | [address] [facility] [address] | | | [place] [address] | + + + | Home Phone [...] [place], [place] | | | | | [address] | | + + + + + Care Team Providers + +------+ + | Care Customer Care Associate Name | Role | Phone | + +------+ + PCP | Unavailable | + +------+ + Encounter Details +--------+ + + + + | Date | Type | Department | Care Team | Description | +--------+ + + + + | 06/30/ | Hospital | [facility] | | | | 1999 - | Encounter | MED CTR GENERIC PSY | | | | | | CONV DEPT [address] | | | | 07/05/ | | [place], | | | | 1999 | | [place] [address] | | | | | | [phone] | | | +--------+ + + + [...]
--- OUTSIDE RECORDS SUMMARY | ~2020-08-08 | XMS | Encounter Summary ---
Demographics + + + | Address | [address] [facility] [address] | | | [place] [address] | + + + | Home Phone [...] [place], [place] | | | | | [address] | | + + + + + Care Team Providers + +------+ + | Care Coremaking Machine Operator Name | Role | Phone | + +------+ + PCP | Unavailable | + +------+ + Encounter Details +--------+ + + + + | Date | Type | Department | Care Team | Description | +--------+ + + + + | 04/01/ | Hospital | [facility] | | | | 1998 | Encounter | MED CTR XRAY [address] | | | | | | [address] | | | | | | [place] [address] | | | | | | [phone] | | | +--------+ + + + [...]
--- OUTSIDE RECORDS SUMMARY | ~2020-08-08 | XMS | Encounter Summary ---
Demographics + + + | Address | [address] [facility] [address] | | | [place] [address] | + + + | Home Phone [...] [place] | | | | | [address] | | + + + + + Care Team Providers + +------+ + | Care Shoe Dresser Name | Role | Phone | + [...] [address] [address] | [address] [place], [place] | Hypothyroidism; | | | | [place], [place] | [address] | GERD; BACK PAIN, | | | | [address] | | LUMBAR, WITH | | | | [phone] | | RADICULOPATHY; | | | | [...]
--- OUTSIDE RECORDS SUMMARY | ~2020-08-08 | XMS | Encounter Summary ---
Demographics + + + | Address | [address] [facility] [address] | | | [place] [address] | + + + | Home Phone [...] [place] | | | | | [address] | | + + + + + Care Team Providers + +------+ + | Care Sizing Machine Operator Name | Role | Phone [...] | | | spondylolist | | [address] | | | | | hesis | | [place], | | | | | Spinal | | [place] [address] | | | | | stenosis, | | Phone: | | | | | lumbar | | [phone] | | | | | region, | | Fax: | | | | | without | | [phone] | | | | | neurogenic | [...] + + | 07/02/ | Surgery | [facility] | Frandy Teresa, | MIS L5-S1 | | 2013 | | MED CTR OR INTRA OP | DO [address] | TRANSFORAMINAL | | | | [address] | [address] | LUMBAR INTERBODY | | | | [place], [place] | [address] | FUSION | | | | [address] | | | | | | [phone] | | | +--------+---------+ + + + [...] might be different fro m the original. [facility] DISCHARGE SUMMARY PATIENT NAME: Cindy Arndt : [...] Stable for discharge to SNF. DISPOSITION: SNF ([facility]) DISCHARGE MEDICATIONS Medications prior [...] Take 15 mg by mouth nightl y. Warren-3 Fatty Acids (FISH OIL CONCENTRATE) 1000 MG [...] + + + +---------+ + + | Warren-3 Fatty | Take 1,000 mg by | [...] Lynn PA-C - 07/04/2014 7:43 AM PDT [facility] PROGRESS NOTE Pt. Name/Age/: Cindy Arndt 58 y.o. 1955 Med. Record Number: [id number] Date of admission: 07/02/2014 Subjective: The patient [...] home medications. D/C plan: Home tomorrow with [facility]. D/c mari drain and riley cath today. D/c crane operator cab. Patient Active Problem List Diagnosis LUMBAR DISC [...] signed by: Chris Nicole, 07/04/2014 7:[address] [facility] Chris Lynn PA-C - 07/03/2014 7:13 AM PDT . [facility] and Services PROGRESS NOTE Pt. Name/Age/: Cindy Arndt 58 y.o. 1955 Med. Record Number: [id number] Date of admission: 07/02/2014 Subjective: The patient [...] Electronically signed by: Chris Nicole, 07/03/2014 7:13 [facility] on [facility] RRT - 07/03/2014 6:50 AM PDTRemoved continuous oximeter [...] signed by: Frandy Teresa DO, 07/02/2014 11:15 [facility] signed by Frandy Teresa DO at 06/2014 11:15 AM PDTDreyFrandy tim DO - 07/02/2014 11:15 AM [id number] [facility], [address] [place] [address] FAX: NEUROSURGERY HISTORY AND PHYSICAL EXAMINATION CHIEF COMPLAINT: No chief complaint on file. HISTORY OF PRESENT ILLNESS: The patient is a 58 y.o. female with the complaint of back jose n that began 5 years ago. The symptoms began after turning in bed a certain way. Since lzaaro t time the patient feel her pain [...] tablet Take 15 mg by mouth nigh tly. Warren-3 Fatty Acids (FISH OIL CONCENTRATE) 1000 MG [...] has no apparent deficits with short or meat scrubber memory. CRANIAL NERVES: II: Acuity is intact. [...] Intrinsics 5 5 Ulnar Intrinsics 5 5 Rack Worker Strength 5 5 Hip Flexion 5 4* [...] documented in this en counter Procedure Notes [facility] - 07/12/2014 12:00 AM PDT 14 [facility] - 07/04/2014 12:00 AM PDT [facility] - 07/02/2014 12:00 AM PDT documented in this encounter Miscellaneous Notes Plan of Care - [facility] - 07/12/2014 12:00 AM PDT iscellaneous - [facility] 07/12/2014 12:00 AM PDTElec tronically signed by Mariah Schulte at 07/12/2014 1:45 PM PDTMiscellaneous - [facility] - 07/12/2014 12:00 AM PDT i scellaneous - [facility] 07/12/2014 12:00 AM PDT lan of Care - Germaine Louis RN - 07/05/2014 5:00 PM PDTProb honey: General Plan of Care (Adult, Obstetrics) Goal: Care Plan Shift Summary & Review . Outcome: Adequate for Discharge Date Met: [facility]05[facility]14 [facility] Did not feel safe [...] Cervantes 07/05/2014 16:06 lan of Care - aMdison Diaz COTA - 07/05/2014 1:25 PM PDTProblem: General Plan of Care (Adult, Obstetrics) Goal: Care Plan Shift Summary & Review . Occupational Therapy Plan of Care Missed Visit (patient declined) Note Summary: Attemted to see pt for tx ,declined stating " have just been medicated for pain and is a 6/10 and I will be going to a FPC as I have 16 steps to my [...] TBD) Equipment Recommendations: tub bench;hand held shower head;director of contracts;comfort height toilet ( pt. has all necessary [...] Nicole PA-C Consultants: none PCP: Natalee Andersen [facility] transferring to: [facility] Provider after transfer: PCP and Dr. Frandy Teresa CODE STATUS: [x] Attempt CPR [] Do not resuscitate If patient is pulseless and not breathing, RN/ESE TEACHER may pronounce . Advanced Directives included: [] [...] for this patient. Diet: [] As tolerated LEAD APPLICATION ARCHITECT may upgrade or downgrade diet as condition Indicates. [x] RN may downgrade diet as indicated. Type: [] Continue current diet of: Diet and Supplements Diet DIET CONSISTENT CARBOHYDRATE Number of Occurrences: -1 Days [] Other: Consistency/Precautions: [] Whole [] Thin Liquids [] Cut-up [] [place] Thick [] Advanced Chopped [] Honey Thickened [] Chopped [] Advanced Ground [] 1:1 feedings [] Ground/Pureed [] Other: Tube Feedings: [] PEG [] GT [] JT [] NGT [] Formula type: (Soap Press Feeder may change/substitute if indicated). [] Continuous Rate: [...] & Management for: ____same as above [] LEAD APPLICATION ARCHITECT Evaluation &Management for: [] Other: Wound/Skin Care: [...] and consultations: Dr. Miranda Date/Time: _4 weeks Date/Time I have advised this patient that [...] Take 15 mg by mouth ni linda. Warren-3 Fatty Acids (FISH OIL CONCENTRATE) 1000 MG [...] Chris Nicole PA-C, certify that post hospital assisted care is medically nec essary on a continuing basis for any of the conditions for which he/she received care during this hospitalization. Check one: [x] Skilled [] Intermediate Additional Orders/Instructions: Physician's signature:__Chris Nicole PA-C 07/05/2014 13:18 [facility] USE ONLY: [] Admitting orders [...] tolerate progressive walking and doing stairs [facility] hospital stay due to multiple pain c/o. Attempted to see pt. 1145, however had just rec eived pain medication and requested PT return, SPL 9/10. At 1205 pt contacted PT for assist OOB due to left LE spasms and need for position change. Sitting at EOB on arrival, COUNTER SUPERVISOR pres ent. Pt. donned LSO brace, stood [...] to all three facilities (per Layne). Tigist bandar is requesting a FWW with a seat due to lack of endurance. When patient is walking in [facility] with a regular FWW she has to stop frequently and states she feels very weak, like sh e may fall. Patient lives alone. Outpatient prescriptions are filled at [facility] in [facility]. Electronically signed by: Franca Narvaez RN 07/05/2014 10:43 lan of Adilene Layne Rivers - 07/05/2014 10:39 AM PDTFaxed referral to [facility] Stout and Lidia Tran. [place] : [id number] and [place]: [id number] Electronically signed by: Layne Collado 07/05/2014 10:40 Received a call from [facility]. They can accept Cindy. Received a call from [facility] and they can't accept Cindy. Tanna from [facility] called and they don't have any beds at this time Electronically signed by: Layne Collado 07/05/2014 12:22 Started the SNF packet. Electronically signed by: Layne Collado 07/05/2014 12:56 lan of [facility] - Sandhya Benites RN - 07/05/2014 5:14 [...] when completed. lan of Care - Yehuda monroy, José Hays RRT - 07/04/2014 11:57 PM PDTProblem: General Plan of Care (Adult, Obstetric s) Goal: Care Plan Shift Summary & Review . On CPAP with 5 LPM bled in sats maintaining will continue to monitor Electronically signed by: José Alvarez RRT 07/04/2014 23:57 lan of Care - K raghavendrachaseRosemaryJONH PotterA - 07/04/2014 5:46 PM PDTProblem: General Plan [...] TBD) Equipment Recommendations: tub bench;hand held shower head;director of contracts;comfort height toilet ( pt. has all necessary equipment) Planned Interventions: ADL retraining;transfer training Patient Status/Goals Reflects last filed data of patient status; may be from multiple contributors. Grooming: Status: did not occur today Assist: Utilizes: STG: Status: New Goal:modified independent LTG: Status: Goal: UE Dressing: Status: SBA Assist: Utilizes: STG: Status: Goal: LTG: Status: Goal: LE Dressing: Status: SBA Utilizes: director of contracts STG: Status: New Goal: modified independent LTG: [...] bed mobil ity. Pt has been using UTILIZATION MANAGER and pain pills during the night. Zofran [...] by herself in a small apartment in [place]. Patient states she has her apartment set [...] [facility] from [facility] [place]. She states the Said she [facility] upon discharge. She would like me to contact [facility] to giv e them a heads up. I called and spoke to Summer at [place] , told her patients PCP i s [...] Pt. resting in bed on arrival, used UTILIZATION MANAGER x 2 during session. SPL /10. Pt. hoping to urinate nutrition director to straight cath. Sidelying to sit at [...] TBD) Equipment Recommendations: tub bench;hand held shower head;director of contracts;comfort height toilet ( pt. has all necessary [...] & Review . Outcome: Progressing Pt using UTILIZATION MANAGER and PO pain pills, c/o numbness on [...] and on a continuous oximeter for her UTILIZATION MANAGER. She was unable to do her IS because o f the medications. She has the IS at bedside with a goal of 2400. She did not require additi onal respiratory care throughout the evening. p Note - Frandy Teresa, DO - 07/02/2014 2:25 PM PDTDATE: 07/02/2014 SURGEON: Frandy Teresa MD. CHIEF ACCOUNTING OFFICER: ZANE Oh PREOPERATIVE DIAGNOSES 1. Spondylolisthesis, L5-S1. [...] x 26 mm Capstone PEEK cage from [employer] was chosen. It was filled with Infus [...] Note Cindy Arndt 58 y.o. female 1955 [id number] Proc. Date 07/02/2014 Preop Dx Spondylolisthesis L5-S1 Postop Dx same Procedure Procedure(s):MIS L5-S1 TRANSFORAMINAL LUMBAR INTERBODY FUSION Anesthesia General Surgeon Frandy Teresa DO Documentation Nurse ZANE Oh EBL 100 mL Findings Findings consistent with scheduled procedure. No other abnormalities found. Complications none Specimens * No specimens in log * Drains Electronically signed by: Frandy Teresa DO 07/02/2014 14:22 [facility] documented in this en counter Plan of [...] + | [facility] | [address] | [place] | [phone] | | [facility] | | [address] | | | - LABORATORY | | | | + + + + + | [facility] | [address] | [place] | | | [facility] | | [address] | | | - LABORATORY | [...] + | [facility] | [address] | [place], [place] | [phone] | | [facility] | | [address] | | | - LABORATORY | | | | + + + + + | [facility] | [address] | [place], [place] | | | [facility] | | [address] | | | - LABORATORY | | | | + + + + + POC Glucose (07/05/2014 6:54 AM PDT) + +-------+ + + + | Component | Value | Ref Range | Performed | Pathologist | | | | | At | Signature | + +-------+ + + + | Glucose, | 128 | 79 - 150 mg/dL | PROVIDED[facility]LE [...] + | [facility] | [address] | [place] | [phone] | | [facility] | | [address] | | | - LABORATORY | | | | + + + + + | [facility] | [address] | [place], [place] | | | [facility] | | [address], [facility] | [...] 143 | 79 - 150 mg/dL | PROVIDEDONTRELLE [...] + | [facility] | [address] | [place] | [phone] | | [facility] | | [address] | | | - LABORATORY | | | | + + + + + | [facility] | [address] | [place], [place] | | | [facility] | | [address] | | | - LABORATORY | [...] [address] | [place] | [phone] | | [facility] | | [address] | | | - LABORATORY | | | | + + + + + | [facility] | [address] | [place] | | | [facility] | | [address] | | | - LABORATORY | | | | + + + + + POC Glucose (07/04/2014 11:36 AM PDT) + +-------+ + + + | Component | Value | Ref Range | Performed | Pathologist | | | | | At | Signature | + +-------+ + + + | Glucose, | 127 | 79 - 150 mg/dL | JANE [...] + | [facility] | [address] | [place], [place] | [phone] | | [facility] | | [address] | | | - LABORATORY | | | | + + + + + | [facility] | [address] | [place], [place] | | | [facility] | | [address] | | | - LABORATORY | [...] [address] | [place] | [phone] | | [facility] | | [address] | | | - LABORATORY | | | | + + + + + | [facility] | [address] | [place] | | | [facility] | | [address], [facility] | [...] + | [facility] | [address] | [place], [place] | [phone] | | [facility] | | [address] | | | - LABORATORY | | | | + + + + + | [facility] | [address] | [place], [place] | | | [facility] | | [address] [place] [address] | | | - LABORATORY | | [...] + | [facility] | [address] | [place], [place] | [phone] | | [facility] | | [address] | | | - LABORATORY | | | | + + + + + | [facility] | [address] | [place], [place] | | | [facility] | | [address] | | | - LABORATORY | [...] | of hardware for posterior fusion from [id number] S1 with interbody hardware at L5-S1. The [...] + | MISCELLANEOUS LAB | | | [phone] | + +---------+ + + | MISCELANIOUS LAB | | | [phone] | + +---------+ + + POC Glucose [...] + | [facility] | [address] | [place], [place] | [phone] | | [facility] | | [address] | | | - LABORATORY | | | | + + + + + | [facility] | [address] | [place] | | | [facility] | | [address] | | | - LABORATORY | [...] + | [facility] | [address] | [place] | [phone] | | [facility] | | [address] | | | - LABORATORY | | | | + + + + + | [facility] | [address] | [place], [place] | | | [facility] | | [address] | | | - LABORATORY | [...] [address] | [place] | [phone] | | [facility] | | [address] | | | - LABORATORY | | | | + + + + + | [facility] | [address] | [place] | | | [facility] | | [address], [facility] | [...] + | [facility] | [address] | [place] | [phone] | | [facility] | | [address] | | | - LABORATORY | | | | + + + + + | [facility] | [address] | [place], [place] | | | [facility] | | [address], [facility] | [...] | | POC | | | [facility] | | | | | | MEDICAL [...] [address] | [place] | [phone] | | [facility] | | [address] | | | - LABORATORY | | | | + + + + + | [facility] | [address] | [place] | | | [facility] | | [address] | | | - LABORATORY | [...] [place] | | | [facility] | | [address] | | | - BLOOD BANK | [...] mLs | | Surgical | | 1:200,000 0.25-1:732844 % | | 14 12:42 | | [...] Surgical | | units powder PRN, Starting Tu | | 14 12:45 | Units | | Site | | 07/02/14 at 1245, Intra-op | | PM PDT | | | | + +-------+ +---------+---+ + +---+---+ | | | +---+---+ documented in this encounter
--- OUTSIDE RECORDS SUMMARY | ~2020-08-08 | XMS | Encounter Summary ---
Demographics + + + | Address | [address] [facility] [address] | | | [place] [address] | + + + | Home Phone [...] [place] | | | | | [address] | | + + + + + Care Team Providers + +------+ + | Care Professor Of Literature Name | Role | Phone | + +------+ + PCP | Unavailable | + +------+ + Encounter Details +--------+ + + + + | Date | Type | Department | Care Team | Description | +--------+ + + + + | 04/16/ | Hospital | [facility] | Deon Gonzales | | | 2005 | Encounter | MED CTR SLEEP | MD Laure[address] | | | | | [place] [address] [place] | | | | | [place], [place] | [place] [address] | | | | | [address] | [phone] | | | | | [phone] | | | +--------+ + + + [...]
--- OUTSIDE RECORDS SUMMARY | ~2020-08-08 | XMS | Encounter Summary ---
Demographics + + + | Address | [address] [facility] [address] | | | [place] [address] | + + + | Home Phone [...] [place] | | | | | [address] | | + + + + + Care Team Providers + +------+ + | Care Nuclear Powerplant Mechanic Name | Role | Phone | [...] + + | 03/26/ | Telephone | [facility] | Thierry Fry | Medication Prior | | 2014 | | MEDICINE [address] [place] [address] | MD Lisa [address] | Authorization | | | | [employer], | [employer] [place] | (Dexilant 60Mg) | | | | [place] [address] | [address] | | | | | [phone] | | | +--------+ + + + [...] - 04/03/2015 12:29 PM PDTCall placed to Davdi plascencia and delivered message regarding Dexilant denial. [...] were not received I contacted insurance ID# [id number] This has been denied. The patient must try and fail 2 of the following Omeprazole Protonix Prevacid Nexium Please advise elepho ne Encounter - Saba Acosta Cert MA - 03/26/2015 1:32 PM PDTCalled and requested a prior authorization Requested for via fax from [employer] Prior auth medication Dexilant 60MgElectronically signed by Faustina Aquino MA at 03/26 1:52 PM PDTdocumented in this encounter Plan of Treatment Not on filedocumented as of this encounter Visit Diagnoses Not on filedocumented in this encounter"
--- OUTSIDE RECORDS SUMMARY | ~2020-08-08 | XMS | Encounter Summary ---
Demographics + + + | Address | [address] [facility] [address] | | | [place] [address] | + + + | Home Phone [...] [place] | | | | | [address] | | + + + + + Care Team Providers + +------+ + | Care Mogul Operator Name | Role | Phone | + +------+ + PCP | Unavailable | + +------+ + Encounter Details +--------+ + + + + | Date | Type | Department | Care Team | Description | +--------+ + + + + | 05/23/ | Hospital | [facility] | [place], | | | 2011 | Encounter | MED CTR XRAY [address] | MD [address] | | | | | [place] | [place] | | | | | [place] [address] | [address] | | | | | [phone] | | | +--------+ + + + [...] + + + +---------+ + + | Zelienople-3 Fatty | Take 1,000 mg by | [...] Performed At | + + + | [facility] Diagnostic Imaging Department | [facility] | | [address], [facility] | [facility] | | LUMBAR SPINE MR WITHOUT CONTRAST, [...] Transcribed Date/Time: | | | 05/23/2012 16:55 Cylinder Block Hole Reliner: <Electronically Signed | | | by Adriano Anne MD> 05/23/12 0086 | | + + + + + | Procedure Note | + + | Manohar Martinez Conversion - 11/30/2013 5:47 PM [facility] | | Diagnostic Imaging Department [address] [place] [address] | | LUMBAR SPINE MR WITHOUT CONTRAST, [...] 16:37 | |Transcribed Date/Time: 05/23/2012 16:55 | |Cylinder Block Hole Reliner: | |<Electronically Signed by Adriano Anne MD> [...]
--- OUTSIDE RECORDS SUMMARY | ~2020-08-08 | XMS | Encounter Summary ---
Demographics + + + | Address | [address] [facility] [address] | | | [place] [address] | + + + | Home Phone [...] [place] | | | | | [address] | | + + + + + Care Team Providers + +------+ + | Care Armored Vehicle Officer Name | Role | Phone | + +------+ + PCP | Unavailable | + +------+ + Encounter Details +--------+ + + + + | Date | Type | Department | Care Team | Description | +--------+ + + + + | 03/11/ | Hospital | [facility] | Deon Gonzales | | | 2005 | Encounter | MED CTR SLEEP | MD Laureano [address] | | | | | [place] [address] | [address] [place] | | | | | [place], [place] | [place] [address] | | | | | [address] | [phone] | | | | | [phone] | | | +--------+ + + + [...]
--- OUTSIDE RECORDS SUMMARY | ~2020-08-08 | XMS | Encounter Summary ---
Demographics + + + | Address | [address] [facility] [address] | | | [place] [address] | + + + | Home Phone [...] [place] | | | | | [address] | | + + + + + Care Team Providers + +------+ + | Care Campaign Consultant Name | Role | Phone | + +------+ + PCP | Unavailable | + +------+ + Encounter Details +--------+ + + + + | Date | Type | Department | Care Team | Description | +--------+ + + + + | 09/24/ | Hospital | [facility] | | | | 1993 | Encounter | MED CTR LABORATORY | | | | | | [address] | | | | | | [place] | | | | | | [address] | | | | | | [phone] | | | +--------+ + + + [...]
--- OUTSIDE RECORDS SUMMARY | ~2020-08-08 | XMS | Encounter Summary ---
Demographics + + + | Address | [address] [facility] [address] | | | [place] [address] | + + + | Home Phone [...] [place] | | | | | [address] | | + + + + + Care Team Providers + +------+ + | Care Bakery Pastry Internship Name | Role | Phone | [...] [address] | | | | | [place], [place] | [place] | | | | | [address] | [place] [address] | | | | | [phone] | [phone] | | | | | | | [...] GIVEN Testing | | | performed at [facility];[address] [place] [address];[place] [address] CULTURE | | | 50,000 TO 100,000 CFU/ML | | | MIXED GRAM POSITIVE HAIDER NO SUSCEPTIBILITY TO FOLLOW | | | MULTIPLE ORGANISM TYPES PRESENT, | | | SUGGESTIVE OF CONTAMINATION OR COLONIZATION. SUGGEST RECOLLECTION FOR | | | CULTURE. Testing | | | performed at [facility];[address] [place] [address];[place] [address] REPORT | | | STATUS 06/08/2012 FINAL [...]
--- OUTSIDE RECORDS SUMMARY | ~2020-08-08 | XMS | Encounter Summary ---
Demographics + + + | Address | [address] [facility] | | | [place] [address] | + + + | Home Phone [...] [place] | | | | | [address] | | + + + + + Care Team Providers + +------+ + | Care Test Technician Name | Role | Phone | [...] + + | 08/08/ | Telephone | [facility] | Ashley Chávez | Other (Questions | | 2019 | | CARDIOLOGY GENESIS Abad, Broker | about coverage. ) | | | | [address] | | | | | | [place] | | | | | | [address] | | | | | | [phone] | | | +--------+ + + + [...] Miscellaneous Notes Telephone Encounter - Ashley Chávez, Broker - 08/08/2019 10:58 AM Seferino kristin called and wanted to know if her monitor needed to be AUTHORIZED. I asked Danelle and she said that because she had medicare part A and B, it does not need kayode or auth. I told this information to the patient, patient stated understanding. BRODY:MAN[facility]. [facility]ed in this encounter Plan of Treatment Not on filedocumented as of this encounter Visit Diagnoses Not on filedocumented in this encounter"
--- OUTSIDE RECORDS SUMMARY | ~2020-08-08 | XMS | Encounter Summary ---
Demographics + + + | Address | [address] [facility] | | | [place] [address] | + + + | Home Phone [...] [place] | | | | | [address] | | + + + + + Care Team Providers + +------+ + | Care Scorer Helper Name | Role | Phone | [...] + + | 08/20/ | Documentati | [facility] | Katharine Moncada, | Other (urgent | | 2019 | on | CARDIOLOGY GENESIS | Technologist | report) | | | | [address] | | | | | | [place] | | | | | | [address] | | | | | | [phone] | | | +--------+ + + + [...]
--- OUTSIDE RECORDS SUMMARY | ~2020-08-08 | XMS | Encounter Summary ---
Demographics + + + | Address | [address] [facility] | | | [place] [address] | + + + | Home Phone [...] [place] | | | | | [address] | | + + + + + Care Team Providers + +------+ + | Care Music Agent Name | Role | Phone | [...] | 06/26/ | Telephone | [facility] | Frandy Teresa, | Other | | 2013 | | NE[address]OSUR[address] | DO [address] | | | | | [address] | [address] [place], [place] | | | | | [place], [place] | [id number] | | | | | [address] | | | | | | [phone] | | | +--------+ + + + [...]
--- OUTSIDE RECORDS SUMMARY | ~2020-08-08 | XMS | Encounter Summary ---
Demographics + + + | Address | [address] [facility] | | | [place] [address] | + + + | Home Phone [...] [place] | | | | | [address] | | + + + + + Care Team Providers + +------+ + | Care Post Hole Digger Name | Role | Phone | + +------+ + PCP | Unavailable | + +------+ + Encounter Details +--------+ + + + + | Date | Type | Department | Care Team | Description | +--------+ + + + + | 02/02/ | Hospital | [facility] | Serafin Bautista | | | 2011 | Encounter | MED CTR XRAY [address] | [address], [address] | | | | | [employer] [place] | [address] [place] | | | | | [place] [address] | [address] | | | | | [phone] | | | +--------+ + + + [...] + + | [facility] Diagnostic Imaging Department | MAR[place] TRAN | | [address] [facility] | [facility] | | PROCEDURE: EPIDURAL STEROID | DIAG [...] Transcribed Date/Time: | | | 02/03/2012 18:45 Critical Care Rn: <Electronically Signed | | | by Serafin Bautista MD> 02/14/12 0916 | | + + + + + | Procedure Note | + + | Juan, Rad Conversion - 11/30/2013 5:06 PM [facility] | | Diagnostic Imaging Department [...] | Transcribed Date/Time: 02/03/2012 18:45 | | Critical Care Rn: MAHIN | | <Electronically Signed by Serafin [...]
--- OUTSIDE RECORDS SUMMARY | ~2020-08-08 | XMS | Encounter Summary ---
Demographics + + + | Address | [address] [facility] | | | [place] [address] | + + + | Home Phone [...] [place] | | | | | [address] | | + + + + + Care Team Providers + +------+ + | Care Alcoholic Counselor Name | Role | Phone | [...] + + | 07/08/ | Telephone | [facility] | Frandy Teresa, | Other (post op call | | 2013 | | NEUROSURGERY [address] | DO [address] | ) | | | | [address] [facility] [address] | [address] [place], [place] | | | | | [place], [place] | [phone] | | | | | [address] | | | | | | [phone] | | | +--------+ + + + [...] Aragon Cert MA - 07/08/2014 11:04 AM [facility] SHAYNE ARAGON documented in this encounter Plan of Treatment Not on filedocumented as of this encounter Visit Diagnoses Not on filedocumented in this encounter"
--- OUTSIDE RECORDS SUMMARY | ~2020-08-08 | XMS | Encounter Summary ---
Demographics + + + | Address | [address] [facility] | | | [place] [address] | + + + | Home Phone [...] [place] | | | | | [address] | | + + + + + Care Team Providers + +------+ + | Care Gluing Crew Leader Name | Role | Phone | [...] | | | | | pain, | [place], [place] | | | | | | bilateral | [address] | | | | | | Degenerative | Phone: | | | | | | disc | [phone] | | | | | | disease, | Fax: | | | | | | lumbar | [phone] | | | | | | Spinal [...] [address] | [address] [place], [place] | (Primary Dx); Knee | | | | [place], [place] | [address] | pain, bilateral; | | | | [address] | | DEGENERATIVE DISC | | | | [phone] | | DISEASE, LUMBAR | | | [...]
--- OUTSIDE RECORDS SUMMARY | ~2020-08-08 | XMS | Encounter Summary ---
Demographics + + + | Address | [address] [facility] | | | [place] [address] | + + + | Home Phone [...] [place] | | | | | [address] | | + + + + + Care Team Providers + +------+ + | Care Rubber Flap Tuber Machine Operator Name | Role | Phone [...] | | | | | [address] | [place], [place] | | | | | [place], [place] | [address] | | | | | [address] | | | | | | [phone] | | | +--------+ + + + [...] EVALUATION Cindy Arndt 58 y.o. female 1955 [id number] Scheduled procedure LAMINECTOMY PLIF/TLIF INSTRUMENTATION [1842] - L5-S1 TLIF Medical history, anesthesia, medications, allergy histories reviewed. ECG reviewed. Labs reviewed. ROS / Med History Ane (+) PONV. (-) difficult intubation, malignant hyperthermia . NPO status verified. CV (+) hypertension.(-) past IA. (+) Dysrhythmias (h/o PVCs) Exercise tolerance >4 [...]
--- OUTSIDE RECORDS SUMMARY | ~2020-08-08 | XMS | Encounter Summary ---
Demographics + + + | Address | [address] [facility] | | | [place] [address] | + + + | Home Phone [...] [place] | | | | | [address] | | + + + + + Care Team Providers + +------+ + | Care Scrap Metal Processing Worker Name | Role | Phone | [...] + + | 05/23/ | Telephone | [facility] | Desiree Peterson DO | Chest Pain | | 2020 | | CARDIOLOGY [place] | [address] | | | | | [address] | [place], [place] | | | | | [place], [place] | [address] | | | | | [address] | | | | | | [phone] | | | +--------+ + + + [...] Protocols, 4th Edition by Lincoln Cullen MD [facility]. Chest Pain protocol was used. documented in this encounter Plan of Treatment Not on filedocumented as of this encounter Visit Diagnoses Not on filedocumented in this encounter
--- OUTSIDE RECORDS SUMMARY | ~2020-08-08 | XMS | Encounter Summary ---
Demographics + + + | Address | [address] [facility] | | | [place] [address] | + + + | Home Phone [...] [place] | | | | | [address] | | + + + + + Care Team Providers + +------+ + | Care Power Electronics Research Engineer Name | Role | Phone | [...] | 08/26/ | Refill | [facility] | Frandy Teresa, | Medication Refill | | 2013 | | NEUROSUR[address] | DO [address] | | | | | [address] [facility] | [address] [place], [place] | | | | | [place], [place] | [id number] | | | | | [address] | | | | | | [phone] | | | +--------+--------+ + + + [...] to notify that p rescription refill for [place] has been authorized. Informed about MRI results per MD results. Also notified about new medication neurontin. Pt verbalized understanding and will notify o ur office if her numbness to bilat feet (upper and lower) doesn't improve. Pt requested refi ll rx of [place] to be mailed via certified mail to her home address at [facility] [facility] signed by Megan Schreiber, RN at [...] PSTPt called to requesting medication refill of [place]. Pt c/o l ower back and left [...]
--- OUTSIDE RECORDS SUMMARY | ~2020-08-08 | XMS | Encounter Summary ---
Demographics + + + | Address | [address] [facility] | | | [place] [address] | + + + | Home Phone [...] [place] | | | | | [address] | | + + + + + Care Team Providers + +------+ + | Care Jig Fitter Name | Role | Phone | [...] + + | 05/19/ | Telephone | [facility] | Britt Dora | Other (Cancel | | 2020 | | CARDIOLOGY [place] | [address] | appointment) | | | | [address] | [address] | | | | | [address] | [place] [address] | | | | | [place], [place] | [phone] | | | | | [address] | | | | | | [phone] | | | +--------+ + + + [...] - 05/19/2020 10:42 AM PDTCalled [facility] to [facility] with Dora Mendez as [...]
--- OUTSIDE RECORDS SUMMARY | ~2020-08-08 | XMS | Encounter Summary ---
Demographics + + + | Address | [address] [facility] | | | [place] [address] | + + + | Home Phone [...] [place], [place] | | | | | [address] | | + + + + + Care Team Providers + +------+ + | Care Cadd Instructor Name | Role | Phone | + +------+ + PCP | Unavailable | + +------+ + Encounter Details +--------+ + + + + | Date | Type | Department | Care Team | Description | +--------+ + + + + | 02/22/ | Hospital | [facility] | | | | 1996 - | Encounter | MED CTR GENERIC PSY | | | | | | CONV DEPT [address] | | | | 02/26/ | | [address] [place], | | | | 1996 | | [place] [address] | | | | | | [phone] | | | +--------+ + + + [...]
--- OUTSIDE RECORDS SUMMARY | ~2020-08-08 | XMS | Encounter Summary ---
Demographics + + + | Address | [address] [facility] | | | [place] [address] | + + + | Home Phone [...] [place] | | | | | [address] | | + + + + + [...] Status post lumbar | | 2013 | | NEUROSURGERY [address] | DO [address] | spinal fusion | | | | [address] | [address] [place], [place] | (Primary Dx) | | | | [place], [place] | [address] | | | | | [address] | | | | | | [phone] | | | +--------+ + + + [...] + | MISCELLANEOUS LAB | | | [phone] | + +---------+ + + | MISCELANIOUS LAB | | | [phone] | + +---------+ + + documented in this encounter Visit Diagnoses + + | Diagnosis | + + | Status post lumbar spinal fusion - Primary Arthrodesis status | + + documented in this encounter"
--- OUTSIDE RECORDS SUMMARY | ~2020-08-08 | XMS | Encounter Summary ---
Demographics + + + | Address | [address] [facility] | | | [place] [address] | + + + | Home Phone [...] [place] | | | | | [address] | | + + + + + Care Team Providers + +------+ + | Care Branch Manager Trainee Name | Role | Phone | + +------+ + | Adriano Patrick MD | PCP | | + +------+ + Reason for Visit + +--------+ + | Reason | Onset | Comments | | | Date | | + +--------+ + | Imaging Only | 02/01/ | | | | 2018 | | + +--------+ + Encounter Details +--------+ + + + + | Date | Type | Department | Care Team | Description | +--------+ + + + + | 02/01/ | Telephone | [facility] | Frandy Teresa, | Imaging Only | | 2018 | | NEUROSUR[address]ERY [address] | DO [address] | | | | | [address] | [address] [place], [place] | | | | | [place], [place] | [id number] | | | | | [address] | | | | | | [phone] | | | +--------+ + + + [...] this encounter Miscellaneous Notes Telephone Encounter - Mk Perea Medical Assistant - 02/07/2019 8:31 AM PDTImplant car d made and mailed to the patient on 02/05/2019. elephone Encounter - Leroy Alvarez - 02/01/2019 10:47 AM PDTPatient called in to request a new hardware card. Please mail to the address on file. documented in this encount er Plan of Treatment Not on filedocumented as of this encounter Visit Diagnoses Not on filedocumented in this encounter"
--- OUTSIDE RECORDS SUMMARY | ~2020-08-08 | XMS | Encounter Summary ---
Demographics + + + | Address | [address] [facility] | | | [place] [address] | + + + | Home Phone [...] [place] | | | | | [address] | | + + + + + Care Team Providers + +------+ + | Care Counter Help Name | Role | Phone | + +------+ + PCP | Unavailable | + +------+ + Encounter Details +--------+ + + + + | Date | Type | Department | Care Team | Description | +--------+ + + + + | 12/06/ | Hospital | [facility] | | | | 1994 | Encounter | MED CTR LABORATORY | | | | | | [address] | | | | | | [place] | | | | | | [address] | | | | | | [phone] | | | +--------+ + + + [...]
--- OUTSIDE RECORDS SUMMARY | ~2020-08-08 | XMS | Encounter Summary ---
Demographics + + + | Address | [address] [facility] | | | [place] [address] | + + + | Home Phone [...] [place] | | | | | [address] | | + + + + + Care Team Providers + +------+ + | Care Physician Gynecologist Name | Role | Phone | + [...] | 2019 | | CARDIOLOGY GENESIS Abad, Promotions Intern | concerns ) | | | | [address] | | | | | | [place] | | | | | | [address] | | | | | | [phone] | | | +--------+ + + + [...] Miscellaneous Notes Telephone Encounter - Ashley Chávez Promotions Intern - 07/30/2019 1:40 PM PDTCalfabio norton to patient to advise of Dr. Peterson's notes. Patient stated understanding. BRODY:IRINA-SANJANA. el ephone Encounter - Ashley Chávez, Promotions Intern - 07/30/2019 1:40 PM PDT----- Mess age [...] Thanks ----- Message ----- From: Ashley Chávez Promotions Intern Sent: 07/30/2019 11:47 To: Desiree Peterson DO [...]
--- OUTSIDE RECORDS SUMMARY | ~2020-08-08 | XMS | Encounter Summary ---
Demographics + + + | Address | [address] [facility] | | | [place] [address] | + + + | Home Phone [...] [place] | | | | | [address] | | + + + + + Care Team Providers + +------+ + | Care Biochemistry Professor Name | Role | Phone | + +------+ + | Adriano Patrick MD | PCP | | + +------+ + Reason for Visit +--------+--------+ + | Reason | Onset | Comments | | | Date | | +--------+--------+ + | Other | 10/22/ | | | | 2018 | | +--------+--------+ + Encounter Details +--------+ + + + + | Date | Type | Department | Care Team | Description | +--------+ + + + + | 10/22/ | Telephone | [facility] | Susu Peralta, | Other | | 2019 | | CARDIOLOGY GENESIS Nath RN | | | | | [address] | | | | | | [facility] [facility] [place] | | | | | | [address] | | | | | | [phone] | | | +--------+ + + + [...] this encounter Miscellaneous Notes Telephone Encounter - Susu Peralta RN - 10/22/2019 10:26 AM PSTReceived call from tay portillo stating that she was having a lot of fatigue, shortness of breath with activity, and pa lpitations. Message sent to Lexie and Dr. Peterson to see if there are any urgent holds patien t can be scheduled in. Awaiting their response. Patient will be going to urgent care today t o be further evaluated. Susu Peralta RN documented in this encounter Plan of Treatment Not on filedocumented as of this encounter Visit Diagnoses Not on filedocumented in this encounter"
--- OUTSIDE RECORDS SUMMARY | ~2020-08-08 | XMS | Encounter Summary ---
Demographics + + + | Address | [address] [facility] | | | [place] [address] | + + + | Home Phone [...] [place] | | | | | [address] | | + + + + + Care Team Providers + +------+ + | Care Chandelier Maker Name | Role | Phone | + +------+ + PCP | Unavailable | + +------+ + Encounter Details +--------+ + + + + | Date | Type | Department | Care Team | Description | +--------+ + + + + | 08/21/ | Hospital | [facility] | | | | 1996 | Encounter | MED CTR LABORATORY | | | | | | [address] | | | | | | [place] | | | | | | [address] | | | | | | [phone] | | | +--------+ + + + [...]
--- OUTSIDE RECORDS SUMMARY | ~2020-08-08 | XMS | Encounter Summary ---
Demographics + + + | Address | [address] [facility] | | | [place] [address] | + + + | Home Phone [...] [place] | | | | | [address] | | + + + + + Care Team Providers + +------+ + | Care Inspector Of Dredging Name | Role | Phone | + [...] | 05/02/ | Telephone | [facility] | Frandy Teresa, | Other | | 2013 | | NEUR[address]UR[address] | DO [address] | | | | | [address] | [address] [place], [place] | | | | | [place], [place] | [id number] | | | | | [address] | | | | | | [phone] | | | +--------+ + + + [...] - 05/08/2014 8:25 AM PDTRichard called Cindy zhao in and was able [...]
--- OUTSIDE RECORDS SUMMARY | ~2020-08-08 | XMS | Encounter Summary ---
Demographics + + + | Address | [address] [facility] | | | [place] [address] | + + + | Home Phone [...] [place], [place] | | | | | [address] | | + + + + + Care Team Providers + +------+ + | Care Security Solutions Engineer Name | Role | Phone | + +------+ + PCP | Unavailable | + +------+ + Encounter Details +--------+ + + + + | Date | Type | Department | Care Team | Description | +--------+ + + + + | 07/23/ | Hospital | [facility] | | | | 1992 - | Encounter | MED CTR GENERIC PSY | | | | | | CONV DEPT [address] | | | | 07/28/ | | [address], | | | | 1992 | | [place] [address] | | | | | | [phone] | | | +--------+ + + + [...]
--- OUTSIDE RECORDS SUMMARY | ~2020-08-08 | XMS | Encounter Summary ---
Demographics + + + | Address | [address] [facility] | | | [place] [address] | + + + | Home Phone [...] [place] | | | | | [address] | | + + + + + Care Team Providers + +------+ + | Care Media Reporter Name | Role | Phone | + +------+ + PCP | Unavailable | + +------+ + Encounter Details +--------+ + + + + | Date | Type | Department | Care Team | Description | +--------+ + + + + | 02/28/ | Hospital | [facility] | Deon Gonzales | | | 2011 | Encounter | MED CTR SLEEP | MD La[address] | | | | | [address] | [address] [place] | | | | | [place], [place] | [place] [address] | | | | | [address] | [phone] | | | | | [phone] | | | +--------+ + + + [...] - 02/29/2012 2:36 PM PDTDATE: 02/29/2012 cc: [facility] Sleep Center Deon Gonzales Jr., MD, [facility] POSITIVE PRESSURE TITRATION STUDY CLINICAL INFORMATION: This [...] the patient scored 18 points on the [place] Sleepiness Scale, which endorses a severe degree [...] advised. Deon Gonzales Jr., MD, FAASM Diplomate [place] Board of Internal Medicine Diplomate in Sleep Medicine Amusement Park Entertainer, Delicia Tom [facility] Center Clinical Passenger Screener [facility], [facility] JOB #: [id number] EXT JOB #:[id number] EDITED: 03/03/2012 07:26 <Electronically Signed by Deon Gonzales MD> 03/03/12 0848 documented in this encounter Plan of Treatment Not on filedocumented as of this encounter Visit Diagnoses Not on filedocumented in this encounter"
--- OUTSIDE RECORDS SUMMARY | ~2020-08-08 | XMS | Encounter Summary ---
Demographics + + + | Address | [address] [facility] | | | [place] [address] | + + + | Home Phone [...] [place] | | | | | [address] | | + + + + + Care Team Providers + +------+ + | Care Furnace Fitter Name | Role | Phone | [...] + | 08/14/ | Documentati | [facility] | Katharine Moncada, | Other (urgent | | 2019 | on | CARDIOLOGY GENESIS | Technologist | report) | | | | [address] | | | | | | [place] | | | | | | [address] | | | | | | [phone] | | | +--------+ + + + [...]
--- OUTSIDE RECORDS SUMMARY | ~2020-08-08 | XMS | Encounter Summary ---
Demographics + + + | Address | [address] [facility] | | | [place] [address] | + + + | Home Phone | | + + + | Preferred Language | Unknown | + + + | Marital Status | Single | + + + | Tenriism Affiliation | Unknown | + + + | Race | White | + + + | Ethnic Group | Not or | + + + Author + + + | Author | [facility] | + + + | Organization | [facility] | + + + | Address | Unknown | + + + | Phone | Unavailable | + + + Support + + + + + | Name | Relationship | Address | Phone | + + + + + | Kelsy Bautista | ECON | [address] | | | | | [place] | | | | | [address] | | + + + + + Care Team Providers + +------+ + | Care Non Garment Sewing Machine Operator Name | Role | Phone [...] [address] | | | | | | [place], [place] | | | | | | [address] | | | +--------+ + + + [...]
--- OUTSIDE RECORDS SUMMARY | ~2020-08-08 | XMS | Encounter Summary ---
Demographics + + + | Address | [address] [facility] | | | [place] [address] | + + + | Home Phone [...] [place] | | | | | [address] | | + + + + + Care Team Providers + +------+ + | Care Mass Spectrometry Manager Name | Role | Phone | [...] + + | 07/10/ | Telephone | [facility] | Frandy Teresa, | Imaging Only (1 year | | 2014 | | NEUROSURGERY [address] | DO [address] | x-ray ) | | | | [address] | [address] [place], [place] | | | | | [place], [place] | [id number] | | | | | [address] | | | | | | [phone] | | | +--------+ + + + [...]
--- OUTSIDE RECORDS SUMMARY | ~2020-08-08 | XMS | Encounter Summary ---
Demographics + + + | Address | [address] [facility] | | | [place] [address] | + + + | Home Phone [...] [place] | | | | | [address] | | + + + + + Care Team Providers + +------+ + | Care Cardiologist Name | Role | Phone | + +------+ + PCP | Unavailable | + +------+ + Encounter Details +--------+ + + + + | Date | Type | Department | Care Team | Description | +--------+ + + + + | 05/29/ | Hospital | [facility] | | | | 1991 | Encounter | MED CTR LABORATORY | | | | | | [address] | | | | | | [place] | | | | | | [address] | | | | | | [phone] | | | +--------+ + + + [...]
--- OUTSIDE RECORDS SUMMARY | ~2020-08-08 | XMS | Clinical Summary ---
Demographics + + + | Address | [address] [facility] [address] [facility] [address] [facility] [address] | | | [place] [address] | + + + | Home Phone [...] [place] | | | | | [address] | | + + + + + Care Team Providers + +------+ + | Care Cargo Service Supervisor Name | Role | Phone [...] | | | | e | | ([employer] VERIO FLEX | | | | | [...] | Telephone | Cardiology | Dora De aL Torre | Cardiology | | 2019 | | | VanessaYONATAN sotomayorP | Appointment | +--------+ + + + + | 05/29/ | Procedure | Cardiology | Dora De La Torre | Left bundle branch | | 2019 | visit | | CAROLINE Mendez | block; Paroxysmal | | | | | | A-fib ([facility]); | | | | | | Syncope, [...] Other (Cancel | 2019 | | | Vanesas, REMELT OPERATOR | appointment) | +--------+ + + + + | 05/08/ | Telephone | Cardiology | Dora De La Torre | Testing | | 2020 | | | CAROLINE Mendez | | +--------+ + + + + from [...] | [employer] - | | 04/02/ | [id number] | | 5ccImplanted: Qty: 1 on | | Spine | MEDT | | 2019 | | | 07/02/2014 by Frandy Teresa | | Lumbar | | | | /[id number] | | A DO at [facility] | | | | | | 6-020 | | [facility] | | | | | | / | + +------+--------+ +--------+--------+--------+ | Graft Infuse Bone Kit Xxs - | | N/A: | SOFAMOR | | 01/21/ | [id number] | | [id number]: Qty: 1 on | | Spine | DANEK - DIV | | 2015 | 0 / | | 07/02/2014 by Frandy Teresa | | Lumbar | [employer] | | | /[id number] | | A, DO at [facility] | | | - SFDK | | | 06AAH | | [facility] | | | | | | | + +------+--------+ +--------+--------+--------+ | Imp Spn Spcr Cpstn 8x26mm - | | N/A: | SOFAMOR | | 01/11/ | [id number] | | [id number]: Qty: 1 on | | Spine | DANEK - DIV | | 2021 | 6 / | | 07/02/2014 by Frandy Teresa | | Lumbar | [employer] | | | /[id number] | | DO Ronak at [facility] | | | - SFDK | | | 928 | | [facility] | | | | | | | + +------+--------+ +--------+--------+--------+ | Set Scrw Ns G5 Brk Off Ti | | N/A: | SOFAMOR | | | [id number] | | 4.75 - [id number]: | | Spine | DANEK - DIV | | | 0 / / | | Qty: 4 on 07/02/2014 by | | Lumbar | [employer] | | | | | Frandy Teresa DO at [facility] | | | - SFDK | | | | | [facility] | | | | | | | | [place] | | | | | | | + +------+--------+ +--------+--------+--------+ | RodImplanted: Qty: 1 on | | N/A: | | | | [id number] | | 07/02/2014 by Frandy Teresa | | Spine | | | | 540 / | | A, DO at [facility] | | Lumbar | | | | / | | [facility] | | | | | | | + +------+--------+ +--------+--------+--------+ | RodImplanted: Qty: 1 on | | N/A: | MEDTROL - | | | [id number] | | 07/02/2014 by Frandy Teresa | | Spine | MDTR | | | 545 / | | A, DO at [facility] | | Lumbar | | | | / | | [facility] | | | | | | | + +------+--------+ +--------+--------+--------+ | Screw 7.5x50mm Sextant - | | N/A: | [employer] - | | | [id number] | | [id number]: Qty: 1 on | | Spine | MEDT | | | [id number] | | 07/02/2014 by Frandy Teresa | | Lumbar | | | | / / | | A, DO at [facility] | | | | | | | | [facility] | | | | | | | + +------+--------+ +--------+--------+--------+ | Cannulated ScrewImplanted: | | N/A: | MEDTROL - | | | [id number] | | Qty: 1 on 07/02/2014 by | | Spine | MDTR | | | [id number] | | Frandy Teresa DO at [facility] | | Lumbar | | | | / / | | [facility] | | | | | | | | CENTER | | | | | | | + +------+--------+ +--------+--------+--------+ | Cannulated ScrewImplanted: | | N/A: | MEDTRONIC - | | | [id number] | | Qty: 1 on 07/02/2014 by | | Spine | MEDT | | | [id number] | | Frandy Teresa DO at [facility] | | Lumbar | | | | / / | | [facility] | | | | | [...] +--------+ +---------+--------+ | MEDICARE | MEDICA | [id number] | 02/22/20 | [phone] | | Medica | | | RE | | 09-Pre | 5 | | re | | | PART A | | sent | | | | | | AND B | | | | | | + +--------+ +--------+ +---------+--------+ | MEDICARE | MEDICA | [id number] | 02/22/20 | [phone] | | Medica [...] APT | | | al/Fam | | 1954 | [phone] | [address] [place], [place] | | | devonte | | | 1 (Home) | [address] | + +--------+ +--------+ + + | Cindy Arndt | Person | Self | [birth year] | [address] | | | al/Fam | | 1954 | [phone] | [address] [place], [place] | | | devonte | | | 1 (Home) | [address] | + +--------+ +--------+ + + Advance Directives + + + + + | Type | Date Recorded | Patient | Explanation | | | | Banquet Set Up Person | | + + + + + | Power of | | | | | Staff Submarine Warfare Officer | | | | + + [...]
--- OUTSIDE RECORDS SUMMARY | ~2020-08-08 | XMS | Encounter Summary ---
Demographics + + + | Address | [address] [facility] [facility] [address] [facility] | | | [place] [address] | + + + | Home Phone [...] [place], [place] | | | | | [address] | | + + + + + Care Team Providers + +------+ + | Care Flour Blender Helper Name | Role | Phone | + +------+ + PCP | Unavailable | + +------+ + Encounter Details +--------+ + + + + | Date | Type | Department | Care Team | Description | +--------+ + + + + | 03/26/ | Hospital | [facility] | | | | 2001 | Encounter | MED CTR LABORATORY | | | | | | [address] | | | | | | [place] | | | | | | [address] | | | | | | [phone] | | | +--------+ + + + [...]
--- OUTSIDE RECORDS SUMMARY | ~2020-08-08 | XMS | Encounter Summary ---
Demographics + + + | Address | [address] [facility] [facility] [facility] | | | [place] [address] | + + + | Home Phone [...] [place] | | | | | [address] | | + + + + + Care Team Providers + +------+ + | Care Track Inspector Name | Role | Phone [...] [place] | | | | | | [address] | | | | | | [phone] | | | +--------+ + + + [...]
--- OUTSIDE RECORDS SUMMARY | ~2020-08-08 | XMS | Encounter Summary ---
Demographics + + + | Address | [address] [facility] | | | [place] [address] | + + + | Home Phone [...] [place] | | | | | [address] | | + + + + + Care Team Providers + +------+ + | Care Sales And Marketing Representative Name | Role | Phone | + +------+ + | Basim Bolanos MD | PCP | | + +------+ + Encounter Details +--------+ + + + + | Date | Type | Department | Care Team | Description | +--------+ + + + + | 03/30/ | Hospital | [facility] | Tyrese Neely MD | | | 2012 | Encounter | MED CTR MP INTRA OP | [address], [place] | | | | | [address] | [address] [place], [place] | | | | | [place], [place] | [address] | | | | | [address] | | | | | | [phone] | | | +--------+ + + + [...] + + + +---------+ + + | [place]-3 Fatty | Take 1,000 mg by | [...] Neely MD - 03/30/2013 12:10 [place] [address] Patient Name: CINDY ARNDT Provider: Tyrese Neely MD Unit #: [id number] Location: [facility] : 1955 Patient Name: Cindy Arndt Gender: F Procedure Date: 03/30/2013 12:10 PM Date of : 1955 Age: 57 Admit Type: Outpatient Room: Endo Room 1 Note Status: Finalized Attending MD: Tyrese Neely MD Procedure: Upper GI endoscopy Indications: Epigastric abdominal pain Providers: Tyrese Neely MD, Vanesa Anne RN, Yesenia Downing, Tank Carpenter, Guillermo Ortiz MD (Anesthesia Staff) Referring MD: [...] physician, the nurse, the anesthesiologist and the food quality technician. The procedure was verified in the [...] GASTRIC | Negative for Urease | | [facility] | | | BIOPSY | | | [...] + | [facility] | [address] | [place] | [phone] | | [facility] | | [address] | | | - LABORATORY | | | | + + + + + | [facility] | [address] | [place] | | | [facility] | | [id number] [place] [address] | | | - LABORATORY | | [...] | + + + | Collect By: Nurse | [facility] | | | - LABORATORY | + + + + + + + + | Performing | Address | City/State/Zipcode | Phone Number | | Organization | | | | + + + + + | [facility] | [address] | [place] | [phone] | | [facility] | | [address] | | | - LABORATORY | | | | + + + + + | [facility] | [address] | [place] | | | [facility] | | [address] [place] [address] | | | - LABORATORY | | | | + + + + + documented in this encounter Visit Diagnoses Not on filedocumented in this encounter"
--- OUTSIDE RECORDS SUMMARY | ~2020-08-08 | XMS | Encounter Summary ---
Demographics + + + | Address | [address] [facility] | | | [place] [address] | + + + | Home Phone [...] [place] | | | | | [address] | | + + + + + [...] + + | 07/06/ | Emergency | [facility] | Yunior Sherman, | Chest pain, | | 2014 | | MED CTR EMERGENCY | [address] | unspecified chest | | | | CENTER [address] | [place], [place] | pain type (Primary | | | | [place] | [address] | Dx) | | | | [address] | | | | | | [phone] | | | +--------+ + + + [...] sent through Care Everywhere.CHEST PAIN, NON CARDIAC (TELUGU)documented in this encounter Medications at Time of [...] 0 | | | | (VITAMIN D-3) [address] | mouth Once a week. | | [...] | | | | | | | ([facility]) | | | | | | [...] + + + +---------+ + + | [place]-3 Fatty | Take 1,000 mg by | [...] Laterality: N/A; Surgeon: Frandy castellanos DO; Location: [facility] OR Cardiac catherization CURRENT MEDICATIONS [...] mg by mouth Daily. CHOLECALCIFEROL (VITAMIN D-3) 33547 UNITS CAPS Take 50,000 Units by mouth [...] pain. She was recently discharged from a [facility] facility. She's had more than 24 hours [...] [address] | [place] | [phone] | | [facility] | | [address] | | | - LABORATORY | | [...] + | [facility] | [address] | [place] | [phone] | | [facility] | | [address] | | | - LABORATORY | | [...] | | | | | | [employer] | | | | | [...] ST. | [address] | [place], [place] | [phone] | | [facility] | | [address] | | | - LABORATORY | | [...] mL/min/1.73m2 | [facility] | | | [employer] | RATE,ESTIMATED | | MEDICAL | | | | mL/min/1.01y0Fose than | | CENTER - | | [...] [address] | [place] | [phone] | | [facility] | | [address] | | | - LABORATORY | | [...] + | [facility] | [address] | [place] | [phone] | | [facility] | | [address] | | | - LABORATORY | | [...] | | | | MD NAZARIO JON ([id number]) | | | | | | on [...]
--- OUTSIDE RECORDS SUMMARY | ~2020-08-08 | XMS | Encounter Summary ---
Demographics + + + | Address | [address] [facility] | | | [place] [address] | + + + | Home Phone [...] [place] | | | | | [address] | | + + + + + Care Team Providers + +------+ + | Care Shirt Bander Name | Role | Phone | [...] | | | [place], | [place] [address] | | | | | [place] [address] | [phone] | | | | | [phone] | | | +--------+--------+ + + + [...]
--- OUTSIDE RECORDS SUMMARY | ~2020-08-08 | XMS | Encounter Summary ---
Demographics + + + | Address | [address] [facility] [facility] [address] [facility] | | | [place] [address] | + + + | Home Phone [...] [place] | | | | | [address] | | + + + + + Care Team Providers + +------+ + | Care Social Services Manager Name | Role | Phone [...] 03/06/ | Office | [facility] | Deon Gonzales | [place] (obstructive | | 2012 | Visit | SLEEP DISORDER [address] | MD [address] | sleep apnea) | | | | [address] [place] | [address] [place] | (Primary Dx); | | | | [place] [address] | [place] [address] | Sleepiness | | | | [phone] | [phone] | | | | | | | [...] differen t from the original. 03/06/13 [address] [place] Sleepiness Scale Sitting and reading 3 Watching [...] by mouth Daily., Disp: , Rfl: ; [place]-3 Fatty Acids (FISH OIL CONCENTRATE) 1000 [...] th is encounter Miscellaneous Notes Miscellaneous - [facility] SC[facility] - 03/06/2013 12:00 AM PDT iscellaneous - [facility] SC[facility] - 03/06/2013 12:00 AM PDTEle [...]
--- OUTSIDE RECORDS SUMMARY | ~2020-08-08 | XMS | Encounter Summary ---
Demographics + + + | Address | [address] [facility] [address] [facility] | | | [place] [address] | + + + | Home Phone [...] [place] | | | | | [address] | | + + + + + Care Team Providers + +------+ + | Care Digital Developer Name | Role | Phone | [...] + + | 08/21/ | Documentati | [facility] | Katharine Moncada, | Other (urgent | | 2019 | on | CARDIOLOGY GENESIS | Technologist | report) | | | | [address] | | | | | | [place] | | | | | | [address] | | | | | | [phone] | | | +--------+ + + + [...]
--- OUTSIDE RECORDS SUMMARY | ~2020-08-08 | XMS | Encounter Summary ---
Demographics + + + | Address | [address] [address] [facility] | | | [place] [address] | + + + | Home Phone [...] [place] | | | | | [address] | | + + + + + Care Team Providers + +------+ + | Care Covering Machine Operator Name | Role | Phone | + +------+ + PCP | Unavailable | + +------+ + Encounter Details +--------+ + + + + | Date | Type | Department | Care Team | Description | +--------+ + + + + | 02/24/ | Hospital | [facility] | | | | 1997 | Encounter | MED CTR EMERGENCY | | | | | | CENTER [address] | | | | | | [place] | | | | | | [address] | | | | | | [phone] | | | +--------+ + + + [...]
--- OUTSIDE RECORDS SUMMARY | ~2020-08-08 | XMS | Encounter Summary ---
Demographics + + + | Address | [address] [facility] [facility] [address] [facility] | | | [place] [address] | + + + | Home Phone [...] [place] | | | | | [address] | | + + + + + Care Team Providers + +------+ + | Care Bus Van Driver Name | Role | Phone | [...] | 05/13/ | Telephone | [facility] | Frandy Teresa, | Other | | 2013 | | NEUROSURGERY [address] | DO [address] | | | | | [address] [place] [address] | [address] [place], [place] | | | | | [place], [place] | [id number] | | | | | [address] | | | | | | [phone] | | | +--------+ + + + [...] settle before rushing into anything. Thanks. elephone Portiao irma - Shayne Aragon Cert MA - 05/13/2014 [...]
--- OUTSIDE RECORDS SUMMARY | ~2020-08-08 | XMS | Encounter Summary ---
Demographics + + + | Address | [address] [facility] | | | [place] [address] | + + + | Home Phone [...] [place] | | | | | [address] | | + + + + + Care Team Providers + +------+ + | Care Gis Consultant Name | Role | Phone | [...] Closed | | Radiology | Diagnoses | [place], | | | | | | Thoracic or | Natalee L, | | | | | | lumbosacral | [address] | | | | | | neuritis or | [address] [place] | | | | | | | [address] | | | | | | radiculitis, | [place], | | | | | | unspecified | [place] [address] | | | | | | | Phone: | | | | | | Degeneration | [phone] | | | | | | of lumbar | Fax: | | | | | | or | [phone] | | | | | | lumbosacral [...] | 03/11/ | Hospital | [facility] | Natalee Andersen | Thoracic or | | 2013 | Encounter | MED CTR MRI [address] | L, [address] | lumbosacral neuritis | | | | [place], | [address] [place] [address] | or radiculitis, | | | | [place] [address] | [place] [address] | unspecified; | | | | [phone] | [phone] | Degeneration of | | | | [...] + + + +---------+ + + | [place]-3 Fatty | Take 1,000 mg by | [...] encounter Miscellaneous Notes Miscellaneous - [facility] SC[facility] - 03/20/2014 12:00 AM PDT [...] + | MISCELLANEOUS LAB | | | [phone] | + +---------+ + + | MISCELANIOUS LAB | | | [phone] | + +---------+ + + documented in this encounter Visit Diagnoses + + | Diagnosis | + + | Thoracic or lumbosacral neuritis or radiculitis, unspecified | + + | Degeneration of lumbar or lumbosacral intervertebral disc | + + documented in this encounter"
--- OUTSIDE RECORDS SUMMARY | ~2020-08-08 | XMS | Encounter Summary ---
Demographics + + + | Address | [address] [facility] [facility] | | | [place] [address] | + + + | Home Phone [...] [place] | | | | | [address] | | + + + + + Care Team Providers + +------+ + | Care Beer Still Runner Compounder Name | Role | Phone | + [...] | | [address] | [place], [place] | | | | | [place], [place] | [address] | | | | | [address] | | | | | | [phone] | | | +--------+ + + + [...] 0.83 m/s | | | MV Dec [place]: 2.85 m/s2 MV DecT: 282.89 ms MV E Teodoro: 0.80 | | | m/s MV E/A Ratio: 0.96 E/E' Sept: 12.59 E' Lat: 0.08 m/s | | | E' Sept: 0.06 m/s RAP: 10 mmHg RV S': 0.11 m/s RVSP: | | | 27.96 mmHg TR maxP.96 mmHg TR Vmax: 2.11 m/s | | | Sales Relationship Manager: Authenticated by: Desiree Peterson MD Report Date/Time: | | | -- [id number]:[id number] | | + + + + + [...] (A-L): 19.60 | | ml/m2LAAs A2C: 15.44 [id number] A-L A2C: 43.84 mlLAESV MOD A2C: 42.12 mlLALs A2C: | | 4.61 cmLAAs A4C: 14.18 [id number] A-L A4C: 38.73 mlLAESV MOD A4C: 37.04 mlLALs A4C: | | 4.41 cmRAAs: 12.15 [id number] A-L: 28.54 mlRAESV MOD: 28.66 mlRALs: 4.39 | | cmTAPSE: 2.42 cmAV Env.Ti: 293.94 msAV maxP.18 mmHgAV meanP.09 mmHgAV | | Vmax: 1.88 m/Eddie Vmean: 1.25 m/Eddie VTI: 36.84 cmAVA Vmax: 2.06 cm2AVA (VTI): | | 2.24 rn2IYQD Vmax: 0.00 cm2/m2AVAI (VTI): 0.00 cm2/m2LVOT Env.Ti: 299.59 msLVOT | | maxP.52 mmHgLVOT meanP.65 mmHgLVSI Dopp: 38.55 ml/m2LVSV Dopp: 82.89 | | mlLVOT Vmax: 1.27 m/sLVOT Vmean: 0.91 m/sLVOT VTI: 27.27 cmMV A Teodoro: 0.83 m/sMV | | Dec [place]: 2.85 m/s2MV DecT: 282.89 msMV E Teodoro: 0.80 m/sMV E/A Ratio: 0.96E/E' | | Sept: 12.59E' Lat: 0.08 m/sE' Sept: 0.06 m/sRAP: 10 mmHgRV S': 0.11 m/sRVSP: | | 27.96 mmHgTR maxP.96 mmHgTR Vmax: 2.11 m/s Sales Relationship Manager:Authenticated by: | | Desiree Peterson MDReport Date/Time: -- 12_[id number]_6:31:1 IMPRESSION: 1. Overall left | | ventricular [...] A Teodoro: 0.83 m/s | |MV Dec [place]: 2.85 m/s2 | |MV DecT: 282.89 ms | |MV E Teodoro: 0.80 m/s | |MV E/A Ratio: 0.96 | |E/E' Sept: 12.59 | |E' Lat: 0.08 m/s | |E' Sept: 0.06 m/s | |RAP: 10 mmHg | |RV S': 0.11 m/s | |RVSP: 27.96 mmHg | |TR maxP.96 mmHg | |TR Vmax: 2.11 m/s | | | |Sales Relationship Manager: | |Authenticated by: Desiree Peterson MD | |Report Date/Time: -- [id number]:31:1 | | | |IMPRESSION: | |1. Overall [...]
--- OUTSIDE RECORDS SUMMARY | ~2020-08-08 | XMS | Encounter Summary ---
Demographics + + + | Address | [address] [facility] | | | [place] [address] | + + + | Home Phone [...] [place], [place] | | | | | [address] | | + + + + + Care Team Providers + +------+ + | Care Cleat Thrower Name | Role | Phone | + +------+ + PCP | Unavailable | + +------+ + Encounter Details +--------+ + + + + | Date | Type | Department | Care Team | Description | +--------+ + + + + | 12/24/ | Hospital | [facility] | | | | 1998 | Encounter | MED CTR XRAY [address] | | | | | [address] | | | | | | [place] [address] | | | | | | [phone] | | | +--------+ + + + [...]
--- OUTSIDE RECORDS SUMMARY | ~2020-08-08 | XMS | Encounter Summary ---
Demographics + + + | Address | [address] [facility] | | | [place] [address] | + + + | Home Phone [...] [place] | | | | | [address] | | + + + + + Care Team Providers + +------+ + | Care Endless Steamer Tender Name | Role | Phone | [...] as of this encounter Procedure Notes Interface, Summer Analyst In - 11/04/2006 3:03 AM PST [address] [phone] [facility] OPERATION RECORD Med Rec No.: [id number] Date: 07/08/98 Name: Cindy Arndt ATTENDING SURGEON: Lazaro Tello M.D. Professor, export sales manager(S): Jose Dawson M.D. Fellow, Ophthalmology PREOPERATIVE DIAGNOSIS: [...] skin retractor was put in place. The [employer] elevators were used to separate the orbicularis [...] | Transcriptions | + + | Interface, Summer Analyst In - 11/04/2006 3:03 AM PST | | [facility] [facility] | | [place], [place] [address] [facility] | | ClinicsOPERATION RECORDMed Rec [...] skin retractor was put in place. The [employer] elevators wereused to separate the | | [...]
--- OUTSIDE RECORDS SUMMARY | ~2020-08-08 | XMS | Encounter Summary ---
Demographics + + + | Address | [address] [facility] | | | [place] [address] | + + + | Home Phone [...] [place] | | | | | [address] | | + + + + + Care Team Providers + +------+ + | Care Field Reimbursement Manager Name | Role | Phone | [...] + + | 06/27/ | Office | [facility] | Yecenia Richardson, | Hypertension, | | 2019 | Visit | CARDIOLOGY [place] | MD Nitin RODRIGUES | unspecified type | | | | [address] | [place], [place] | (Primary Dx); | | | | [place] [address] | [address] | Bradycardia | | | | [place] | | | | | | [address] | | | | | | [phone] | | | +--------+---------+ + + + [...] urgent basis. Had an appointment today in [facility]. She has been feeling dizzy [...] Take by mouth. Blood Glucose Monitoring Suppl (Head[employer] VERIO FLEX SYSTEM) w/Device KIT by Does [...] mg by mouth Daily. Cholecalciferol (VITAMIN D-3) 31015 units CAPS Take 50,000 Units by mouth [...] tablet Take 10 mg by mouth nightly. [place]-3 Fatty Acids (FISH OIL CONCENTRATE) 1000 MG [...]
--- OUTSIDE RECORDS SUMMARY | ~2020-08-08 | XMS | Encounter Summary ---
Demographics + + + | Address | [address] [facility] | | | [place] [address] | + + + | Home Phone [...] [place] | | | | | [address] | | + + + + + Care Team Providers + +------+ + | Care City Superintendent Of Schools Name | Role | Phone | + +------+ + PCP | Unavailable | + +------+ + Encounter Details +--------+ + + + + | Date | Type | Department | Care Team | Description | +--------+ + + + + | 12/09/ | Hospital | [facility] | Serafin Bautista | | | 2011 | Encounter | MED CTR XRAY [address] | | | | | [place] | [address] | | | | | [place] [address] | [address] | | | | | [phone] | | | +--------+ + + + [...] At | + + + | [facility] Diagnostic Imaging Department | [facility] | | [address] | [facility] | | PROCEDURE NOTE EPIDURAL [...] Manohar Martinez Conversion - 11/30/2013 4:45 PM [facility] | | Diagnostic Imaging Department | | [address] [facility] | | | | [...] [place] | | | | | [facility] | | | | + +---------+ + + documented in this encounter Visit Diagnoses Not on filedocumented in this encounter"
--- OUTSIDE RECORDS SUMMARY | ~2020-08-08 | XMS | Encounter Summary ---
Demographics + + + | Address | [address] [facility] [address] | | | [place] [address] | + + + | Home Phone [...] [place] | | | | | [address] | | + + + + + Care Team Providers + +------+ + | Care Contracts Paralegal Name | Role | Phone | + +------+ + PCP | Unavailable | + +------+ + Encounter Details +--------+ + + + + | Date | Type | Department | Care Team | Description | +--------+ + + + + | 02/16/ | Hospital | [facility] | | | | 1994 | Encounter | MED CTR LABORATORY | | | | | | [address] | | | | | | [place] | | | | | | [address] | | | | | | [phone] | | | +--------+ + + + [...]
--- OUTSIDE RECORDS SUMMARY | ~2020-08-08 | XMS | Encounter Summary ---
Demographics + + + | Address | [address] [facility] | | | [place] [address] | + + + | Home Phone [...] [place], [place] | | | | | [address] | | + + + + + Care Team Providers + +------+ + | Care Insurance Coder Name | Role | Phone | [...] [id number] | | | | | | [place], [place] | | | | | | [address] | | | | | | [phone] | | | +--------+ + + + [...]
--- OUTSIDE RECORDS SUMMARY | ~2020-08-08 | XMS | Encounter Summary ---
Demographics + + + | Address | [address] [facility] | | | [place] [address] | + + + | Home Phone [...] [place], [place] | | | | | [address] | | + + + + + Care Team Providers + +------+ + | Care Mule Rider Name | Role | Phone | + +------+ + PCP | Unavailable | + +------+ + Encounter Details +--------+ + + + + | Date | Type | Department | Care Team | Description | +--------+ + + + + | 01/25/ | Hospital | [facility] | | | | 2002 | Encounter | MED CTR XRAY [address] | | | | | | [place] | | | | | | [place] [address] | | | | | | [phone] | | | +--------+ + + + [...]
--- OUTSIDE RECORDS SUMMARY | ~2020-08-08 | XMS | Encounter Summary ---
Demographics + + + | Address | [address] [facility] | | | [place] [address] | + + + | Home Phone [...] [place] | | | | | [address] | | + + + + + Care Team Providers + +------+ + | Care Freezer Worker Name | Role | Phone | + +------+ + | Adirano Patrick MD | PCP | | + +------+ + Reason for Visit +--------+ + | Reason | Comments | +--------+ + | Other | urgent report | +--------+ + Encounter Details +--------+ + + + + | Date | Type | Department | Care Team | Description | +--------+ + + + + | 08/20/ | Documentati | [facility] | Katharine Moncada, | Other (urgent | | 2019 | on | CARDIOLOGY GENESIS | Technologist | report) | | | | [address] | | | | | | [place] | | | | | | [address] | | | | | | [phone] | | | +--------+ + + + [...]
--- OUTSIDE RECORDS SUMMARY | ~2020-08-08 | XMS | Encounter Summary ---
Demographics + + + | Address | [address] [facility] | | | [place] [address] | + + + | Home Phone [...] [place], [place] | | | | | [address] | | + + + + + Care Team Providers + +------+ + | Care Audio Recording Engineer Name | Role | Phone | + +------+ + PCP | Unavailable | + +------+ + Encounter Details +--------+ + + + + | Date | Type | Department | Care Team | Description | +--------+ + + + + | 07/17/ | Hospital | [facility] | | | | 1997 - | Encounter | MED CTR GENERIC PSY | | | | | | CONV DEPT [address] | | | | 07/25/ | | [place], | | | | 1997 | | [place] [address] | | | | | | [phone] | | | +--------+ + + + [...]
--- OUTSIDE RECORDS SUMMARY | ~2020-08-08 | XMS | Encounter Summary ---
Demographics + + + | Address | [address] [facility] | | | [place] [address] | + + + | Home Phone [...] [place] | | | | | [address] | | + + + + + Care Team Providers + +------+ + | Care Circuit Board Drafter Name | Role | Phone | [...] [place] | | | | | | [address] | | | | | | [phone] | | | +--------+ + + + [...]
--- OUTSIDE RECORDS SUMMARY | ~2020-08-08 | XMS | Encounter Summary ---
Demographics + + + | Address | [address] [facility] | | | [place] [address] | + + + | Home Phone [...] [place] | | | | | [address] | | + + + + + Care Team Providers + +------+ + | Care Senior It Assistant Name | Role | Phone | [...] | | | spondylolist | | [address] | | | | | hesis | | [place], | | | | | Spinal | | [place] [address] | | | | | stenosis, | | Phone: | | | | | lumbar | | [phone] | | | | | region, | | Fax: | | | | | without | | [phone] | | | | | neurogenic | [...] | | | | | [address] | [address] [place] | | | | | [place] | [address] | | | | | [address] | | | | | | [phone] | | | +--------+ + + + [...] +----+---+ + + | | 1 | Ronda | | | | 2 | 43-degrees | | | | 3 | | | | | 1 | | | +----+---+ + + | | 1 | Ronda off | | | | 4 | [...] EVALUATION Cindy Arndt 58 y.o. female 1955 [id number] Procedure: Procedure(s):MIS L5-S1 TRANSFORAMINAL LUMBAR INTERBODY FUSION [...] by Zen Mccord MD 07/02/2014 14:55 [facility] nesthesia Preproc edure Evaluation - Zen Mccord MD - 07/02/2014 8:36 AM PDTFormatting of this note m ight be different from the original. ANESTHESIA PREANESTHESIA EVALUATION Cindy Arndt 58 y.o. female 1955 [id number] Scheduled procedure LAMINECTOMY PLIF/TLIF INSTRUMENTATION [184] - MIS L5-S1 TRANSFORAMINAL LUMBAR INTERBODY FUSION Medical history, anesthesia, medications, allergy histories reviewed. ECG reviewed. Labs reviewed. ROS / Med History Ane (+) PONV. NPO status verified. CV (+) hypertension.(-) CAD, past AK, CHF, congenital heart disease, pulmonary hypertension, p [...]
--- OUTSIDE RECORDS SUMMARY | ~2020-08-08 | XMS | Encounter Summary ---
Demographics + + + | Address | [address] [facility] | | | [place] [address] | + + + | Home Phone [...] [place], [place] | | | | | [address] | | + + + + + Care Team Providers + +------+ + | Care Garden Implement Mechanic Name | Role | Phone | [...] | | | | | | [address] [facility] | | | | | | [place], [place] | | | | | | [address] | | | | | | [phone] | | | +--------+ + + + [...]
--- OUTSIDE RECORDS SUMMARY | ~2020-08-08 | XMS | Encounter Summary ---
Demographics + + + | Address | [address] [facility] | | | [place] [address] | + + + | Home Phone [...] [place] | | | | | [address] | | + + + + + Care Team Providers + +------+ + | Care Medical Technologist Chemistry Name | Role | Phone | + [...] + + | 05/01/ | Telephone | [facility] | Dora De La Torre | Medication Question | | 2020 | | CARDIOLOGY [place] | [address] | | | | | [address] | [address] | | | | | [address] | [place] [address] | | | | | [place] | [phone] | | | | | [address] | | | | | | [phone] | | | +--------+ + + + [...]
--- OUTSIDE RECORDS SUMMARY | ~2020-08-08 | XMS | Encounter Summary ---
Demographics + + + | Address | [address] [facility] | | | [place] [address] | + + + | Home Phone [...] [place], [place] | | | | | [address] | | + + + + + Care Team Providers + +------+ + | Care Mechanic Name | Role | Phone | + +------+ + PCP | Unavailable | + +------+ + Encounter Details +--------+ + + + + | Date | Type | Department | Care Team | Description | +--------+ + + + + | 05/23/ | Hospital | [facility] | | | | 1991 | Encounter | MED CTR XRAY [address] | | | | | | [place] | | | | | | [place] [address] | | | | | | [phone] | | | +--------+ + + + [...]
--- OUTSIDE RECORDS SUMMARY | ~2020-08-08 | XMS | Encounter Summary ---
Demographics + + + | Address | [address] [facility] | | | [place] [address] | + + + | Home Phone [...] [place] | | | | | [address] | | + + + + + Care Team Providers + +------+ + | Care Stopper Maker Name | Role | Phone | [...] Lincoln Cheema MD | Pain | | 2014 | | NEUROSURGERY [address] | | | | | [address] | [place] [address] | | | | | [place] | [phone] | | | | | [address] | | | | | | [phone] | | | +--------+ + + + [...] Percocet prescription and faxed it to them ([facility]) this morning like I told them I would. Thank you for doing that, but it should not have been necessary. Telephone Encounter - Lincoln Cheema MD - 07/06/2014 8:59 PM PDTCalled regarding increased p ain. She was taking percocet. She was discharged to a [facility] on hydrocodone. I talked to the nurse and three pharmacists. Her physician Dr. Faye refused to assist oskar. To help this pa tiebrandee, I took in a prescription for 36 percocet 10 to camila. She will need a new prescript ion on Tuesday. documented in this enc ounter Plan of Treatment Not on filedocumented as of this encounter Visit Diagnoses Not on filedocumented in this encounter"
--- OUTSIDE RECORDS SUMMARY | ~2020-08-08 | XMS | Encounter Summary ---
Demographics + + + | Address | [address] [facility] | | | [place] [address] | + + + | Home Phone [...] [place] | | | | | [address] | | + + + + + Care Team Providers + +------+ + | Care Rn Oncology Name | Role | Phone | + [...] | | | | | ECHO | [place], [place] | | | | | | Complete | [address] | | | | | | | Phone: | | | | | | | [phone] | | | | | | | Fax: | | | | | | | [phone] | | + +--------+ + + + + Reason for Visit + + + | Reason | Comments | + + + | Follow-up | 6 month | + + + Encounter Details +--------+---------+ + + + | Date | Type | Department | Care Team | Description | +--------+---------+ + + + | 04/03/ | Office | [facility] | Desiree Peterson DO | Left bundle branch | | 2020 | Visit | CARDIOLOGY [place] | [address] | block (Primary Dx); | | | | [address] | [place], [place] | Benign essential | | | | [address] | [address] | HTN; New onset left | | | | [place], [place] | | bundle branch block | | | | [address] | | (LBBB); Obesity, | | | | [phone] | | Class III, BMI | | [...] Peterson DO - 04/03/2020 10:20 AM PDT [facility] Cardiology Cardiology Follow Up Note Reason [...] rtake in exercise. She recently got a Lookeryua and has been walking him more regularly. 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 Blood Glucose Monitoring Suppl (H2HCareIO FLEX SYSTEM) w/Device KIT by Does not ap ply route. budesonide-formoterol (SYMBICORT) 160-4.5 MCG/ACT inhaler Inhale 2 puffs into the lungs 2 (two) times daily. Calcium Carbonate Antacid 1000 MG tablet Take 1,000 mg by mouth 3 (three) times daily. Cholecalciferol (VITAMIN D3) 90509 units CAPS Take by mouth once a [...] ALT 76, alkaline phosphatase 134. Labs: 10/20/2019:( [facility]) CBC: WBC 7.1, RBC 4.93, hemoglobin [...]
--- OUTSIDE RECORDS SUMMARY | ~2020-08-08 | XMS | Encounter Summary ---
Demographics + + + | Address | [address] [facility] [address] | | | [place] [address] | + + + | Home Phone [...] [place] | | | | | [address] | | + + + + + Care Team Providers + +------+ + | Care Recoil Spring Winder Name | Role | Phone | [...] + + | 08/09/ | Clinical | [facility] | Desiree Peterson DO | Syncope, unspecified | | 2019 | Support | CARDIOLOGY [place] | [address] | syncope type | | | | [address] | [place], [place] | | | | | [place] [address] | [address] | | | | | [place] | | | | | | [address] | Dora De La Torre | | | | | [phone] | CAROLINE [address] | | | | | | [address] [place] | | | | | | [place] [address] | | | | | | [phone] | | | | | | | [...]
--- OUTSIDE RECORDS SUMMARY | ~2020-08-08 | XMS | Encounter Summary ---
Demographics + + + | Address | [address] [facility] | | | [place] [address] | + + + | Home Phone [...] [place] | | | | | [address] | | + + + + + Care Team Providers + +------+ + | Care Licensing Representative Name | Role | Phone | + +------+ + | Adriano Patrick MD | PCP | | + +------+ + Encounter Details +--------+ + + + + | Date | Type | Department | Care Team | Description | +--------+ + + + + | 05/16/ | Orders Only | [facility] | Provider, | | | 2018 | | SYSTEM GENERIC OP | [address] | | | | | [address] | [address] | | | | | [address] [place], [place] | [place] [address] | | | | | [address] | | | | | | [phone] | | | +--------+ + + + [...]
--- OUTSIDE RECORDS SUMMARY | ~2020-08-08 | XMS | Encounter Summary ---
Demographics + + + | Address | [address] [facility] [address] | | | [place] [address] | + + + | Home Phone [...] [place] | | | | | [address] | | + + + + + Care Team Providers + +------+ + | Care Railroad Wheels And Axles Inspector Name | Role | Phone | [...] | | | spondylolist | | [address] | | | | | hesis | | [place], | | | | | Spinal | | [place] [address] | | | | | stenosis, | | Phone: | | | | | lumbar | | [phone] | | | | | region, | | Fax: | | | | | without | | [phone] | | | | | neurogenic | [...] | | | | | | | NE ARTHDSIS | | | | | | [...] | | | | | | ION NE | | | | | | | [...] | | | | | | SEG NE | | | | | | | [...] + + | 07/02/ | Hospital | [facility] | Frandy Teresa, | Degenerative disc | | 2013 - | Encounter | MED CTR SURGICAL | DO [address] | disease, lumbar | | | | [address] | [address] [place] [address] | (Primary Dx); | | 07/05/ | | [place] [address] | [phone] | Diabetes mellitus | | 2013 | | [phone] | | ([facility]); Disturbance | | | | [...] be different fro m the original. [facility] DISCHARGE SUMMARY PATIENT NAME: Cindy Arndt [...] Stable for discharge to SNF. DISPOSITION: SNF ([facility]) DISCHARGE MEDICATIONS Medications prior [...] Take 15 mg by mouth nightl y. [place]-3 Fatty Acids (FISH OIL CONCENTRATE) 1000 MG [...] + + + +---------+ + + | [place]-3 Fatty | Take 1,000 mg by | [...] - 07/04/2014 7:43 AM PDT [facility] PROGRESS NOTE Pt. Name/Age/: Cindy Arndt 58 y.o. 1955 Med. Record Number: [id number] Date of admission: 07/02/2014 Subjective: The patient [...] home medications. D/C [facility] D/c mari drain and riley cath today. D/c foreign exchange dealer. Patient Active Problem List Diagnosis LUMBAR DISC [...] by: Chris Nicole, 07/04/2014 7:45 [facility] Chris Lynn PA-C - 07/03/2014 7:13 AM PDT . [facility] PROGRESS NOTE Pt. Name/Age/: Cindy Arndt 58 y.o. 1955 Med. Record Number: [id number] Date of admission: 07/02/2014 Subjective: The patient [...] signed by: Chris Nicole, 07/03/2014 7:13 [facility] oTon perez, KRIS - 07/03/2014 6:50 AM PDTRemoved continuous [...] PDTFrandy Teresa DO - 07/02/2014 11:15 AM [id number] [facility] [place] [address] FAX: NEUROSURGERY HISTORY AND PHYSICAL EXAMINATION CHIEF [...] Take 15 mg by mouth nigh tly. [place]-3 Fatty Acids (FISH OIL CONCENTRATE) 1000 MG [...] Intrinsics 5 5 Ulnar Intrinsics 5 5 Wine Cellar Worker Strength 5 5 Hip Flexion 5 [...] today, and I greatly appreciate the r cordellal. The patient has L5-S1 spondylolisthesis, which is [...] in this en counter Procedure Notes [facility] - 07/12/2014 12:00 AM PDT 14 1[facility]45 [facility] - 07/04/2014 12:00 AM PDT [facility] - 07/02/2014 12:00 AM PDT documented in this encounter Miscellaneous Notes Plan of Care - ONBASE SCAN [facility] 07/12/2014 12:00 AM PDT [facility]cellaneous [facility] 07/12/2014 12:00 AM PDTElec tronically signed by Mariah Schulte at 07/12/2014 1:45 PM PDTMiscellaneous - [facility] 07/12/2014 12:00 AM PDT i scellaneous - BRUCE SCAN [facility] - 07/12/2014 12:00 AM PDT lan of Care - Joe Louis RN - 07/05/2014 5:00 PM PDTProb honey: General Plan of Care (Adult, Obstetrics) Goal: Care Plan Shift Summary & Review . Outcome: Adequate for Discharge Date Met: 07/05/14 Pt DCd to [facility] per her request. Did not feel safe to go home at this time. Needed some m ore strengthening for stairs. Pain better controlled with Percocet dose increase although sh yesy is somewhat more sleepy. Does still c/o [...] and I will be going to a group home as I have 16 steps to [...] TBD) Equipment Recommendations: tub bench;hand held shower head;inbound customer service representative;comfort height toilet ( pt. has all necessary [...] Nicole PA-C Consultants: none PCP: Natalee Andersen [facility] transferring to: [facility] Provider after transfer: PCP and Dr. Frandy Teresa CODE STATUS: [x] Attempt CPR [] Do not resuscitate If patient is pulseless and not breathing, RN/LINE RUNNER may pronounce . Advanced Directives included: [] [...] for this patient. Diet: [] As tolerated TRUCKING CONTRACTOR may upgrade or downgrade diet as condition Indicates. [x] RN may downgrade diet as indicated. Type: [] Continue current diet of: Diet and Supplements Diet DIET CONSISTENT CARBOHYDRATE Number of Occurrences: -1 Days [] Other: Consistency/Precautions: [] Whole [] Thin Liquids [] Cut-up [] [place] Thick [] Advanced Chopped [] Honey Thickened [] Chopped [] Advanced Ground [] 1:1 feedings [] Ground/Pureed [] Other: Tube Feedings: [] PEG [] GT [] JT [] NGT [] Formula type: (Superintendent Stevedoring may change/substitute if indicated). [] Continuous Rate: [...] & Management for: ____same as above [] TRUCKING CONTRACTOR Evaluation &Management for: [] Other: Wound/Skin Care: [...] Take 15 mg by mouth ni linda. [place]-3 Fatty Acids (FISH OIL CONCENTRATE) 1000 MG [...] Chris Nicole PA-C, certify that post hospital usp care is medically nec essary on a [...] Date: Time: lan of Care - Edwin montanez Heather Kelley, PT - 07/05/2014 12:41 PM PDTProblem: General Plan of Care (Adult, Obstetrics) Goal: Care Plan Shift Summary & Review . Physical Therapy Plan of Care Treatment Note Summary: Pt. having difficulty with pain management, has elected SNF before returning home to indpt apt. living. Has not been able to tolerate progressive walking and doing stairs [facility] stay due to multiple pain c/o. Attempted to see pt. 1145, however had just rec eived pain medication and requested PT return, SPL 9/10. At 1205 pt contacted PT for assist OOB due to left LE spasms and need for position change. Sitting at EOB on arrival, SKI BASE TRIMMER pres ent. Pt. donned LSO brace, stood [...] of endurance. When patient is walking in [facility] with a regular FWW she has to stop frequently and states she feels very weak, like sh e may fall. Patient lives alone. Outpatient prescriptions are filled at [facility] in [facility]. Electronically signed by: Franca Narvaez RN 07/05/2014 10:43 lan of Adilene Layne Rivers - 07/05/2014 10:39 AM PDTFaxed referral to Gabriela Stout and Lidia Tran. [place] : [phone] and [place]: [id number] Electronically signed by: Layne Collado 07/05/2014 10:40 [...] 23:57 lan of Care - Madison Berry AGRAWAL - 07/04/2014 5:46 PM PDTProblem: General [...] TBD) Equipment Recommendations: tub bench;hand held shower head;inbound customer service representative;comfort height toilet ( pt. has all necessary equipment) Planned Interventions: ADL retraining;transfer training Patient Status/Goals Reflects last filed data of patient status; may be from multiple contributors. Grooming: Status: did not occur today Assist: Utilizes: STG: Status: New Goal:modified independent LTG: Status: Goal: UE Dressing: Status: SBA Assist: Utilizes: STG: Status: Goal: LTG: Status: Goal: LE Dressing: Status: SBA Utilizes: inbound customer service representative STG: Status: New Goal: modified independent LTG: [...] bed mobil ity. Pt has been using SYSTEMS DEVELOPMENT CONSULTANT and pain pills during the night. Zofran [...] by herself in a small apartment in [place]. Patient states she has her apartment set [...] to come from [facility] [place]. She states the Said she might benefit [facility] upon discharge. She would like me to contact [facility] to giv e them a heads [...] Pt. resting in bed on arrival, used SYSTEMS DEVELOPMENT CONSULTANT x 2 during session. SPL /10. Pt. hoping to urinate gang supervisor to straight cath. Sidelying to sit [...] in dpt. lan of Care - Nikki Braga, OT - 07/03/2014 10:08 AM PDTProblem: General [...] TBD) Equipment Recommendations: tub bench;hand held shower head;inbound customer service representative;comfort height toilet ( pt. has all necessary [...] & Review . Outcome: Progressing Pt using SYSTEMS DEVELOPMENT CONSULTANT and PO pain pills, c/o numbness on [...] and on a continuous oximeter for her SYSTEMS DEVELOPMENT CONSULTANT. She was unable to do her IS because o f the medications. She has the IS at bedside with a goal of 2400. She did not require additi onal respiratory care throughout the evening. p Note - Frandy Teresa, DO - 07/02/2014 2:25 PM PDTDATE: 07/02/2014 SURGEON: Frandy Teresa MD. PRINCIPAL TECHNICAL ARCHITECT: ZANE Oh PREOPERATIVE DIAGNOSES 1. Spondylolisthesis, L5-S1. [...] x 26 mm Capstone PEEK cage from [employer] was chosen. It was filled with Infus [...] Note Cindy Arndt 58 y.o. female 1955 [id number] Proc. Date 07/02/2014 Preop Dx Spondylolisthesis L5-S1 Postop Dx same Procedure Procedure(s):MIS L5-S1 TRANSFORAMINAL LUMBAR INTERBODY FUSION Anesthesia General Surgeon Frandy Teresa DO Early Childhood Educator Aide ZANE Oh EBL 100 mL Findings Findings [...] [address] | [place] | [phone] | | [facility] | | [address] | | | - LABORATORY | | | | + + + + + | [facility] | [address] | [place], [place] | | | [facility] | | [id number] | | | - LABORATORY [...] + | [facility] | [address] | [place] | [phone] | | [facility] | | [address] | | | - LABORATORY | | | | + + + + + | [facility] | [address] | [place], [place] | | | [facility] | | [address] | | | - LABORATORY [...] [address] | [place] | [phone] | | [facility] | | [address] | | | - LABORATORY | | | | + + + + + | [facility] | [address] | [place] | | | [facility] | | [id number] | | | - LABORATORY | | | | + + + + + POC Glucose (07/04/2014 8:55 PM PDT) + +-------+ + + + | Component | Value | Ref Range | Performed | Pathologist | | | | | At | Signature | + +-------+ + + + | Glucose, | 143 | 79 - 150 mg/dL | JANE [...] + | [facility] | [address] | [place] | [phone] | | [facility] | | [address] | | | - LABORATORY | | | | + + + + + | [facility] | [address] | [place], [place] | | | [facility] | | [address], [facility] | | | - LABORATORY [...] [address] | [place] | [phone] | | [facility] | | [address] | | | - LABORATORY | | | | + + + + + | [facility] | [address] | [place] | | | [facility] | | [address], [facility] | | | - LABORATORY [...] | | POC | | | [facility] | | | | | [...] + | [facility] | [address] | [place] | [phone] | | [facility] | | [address] | | | - LABORATORY | | | | + + + + + | [facility] | [address] | [place], [place] | | | [facility] | | [address], [facility] | | | - LABORATORY [...] + | [facility] | [address] | [place], [place] | [phone] | | [facility] | | [address] | | | - LABORATORY | | | | + + + + + | [facility] | [address] | [place] | | | [facility] | | [id number] | | | - LABORATORY [...] | | | POC | | | [facility] | | | | | [...] + | [facility] | [address] | [place] | [phone] | | [facility] | | [address] | | | - LABORATORY | | | | + + + + + | [facility] | [address] | [place] | | | [facility] | | [address], [facility] | | | - LABORATORY [...] + | [facility] | [address] | [place], [place] | [phone] | | [facility] | | [address] | | | - LABORATORY | | | | + + + + + | [facility] | [address] | [place], [place] | | | [facility] | | [id number] [place] [address] | | | - LABORATORY | | [...] | of hardware for posterior fusion from I8sxooprc S1 with interbody hardware at L5-S1. The [...] + | MISCELLANEOUS LAB | | | [phone] | + +---------+ + + | MISCELANIOUS LAB | | | [phone] | + +---------+ + + POC Glucose (07/03/2014 1:53 PM PDT) + +-------+ + + + | Component | Value | Ref Range | Performed | Pathologist | | | | | At | Signature | + +-------+ + + + | Glucose, | 129 | 79 - 150 mg/dL | PROVIDEDONTRELLE [...] + | [facility] | [address] | [place] | [phone] | | [facility] | | [address] | | | - LABORATORY | | | | + + + + + | [facility] | [address] | [place], [place] | | | [facility] | | [address], [facility] | | | - LABORATORY [...] + | [facility] | [address] | [place] | [phone] | | [facility] | | [address] | | | - LABORATORY | | | | + + + + + | [facility] | [address] | [place] | | | [facility] | | [id number] | | | - LABORATORY [...] [address] | [place] | [phone] | | [facility] | | [address] | | | - LABORATORY | | | | + + + + + | [facility] | [address] | [place] | | | [facility] | | [address] | | | - LABORATORY [...] + | [facility] | [address] | [place] | [phone] | | [facility] | | [address] | | | - LABORATORY | | | | + + + + + | [facility] | [address] | [place], [place] | | | [facility] | | [id number] | | | - LABORATORY [...] [address] | [place] | [phone] | | [facility] | | [address] | | | - LABORATORY | | | | + + + + + | [facility] | [address] | [place] | | | [facility] | | [address], [facility] | | | - LABORATORY [...] | [facility] | | [address] | | | - BLOOD BANK | [...] asenapine (SAPHRIS) SL tablet | Given | 09/11/20 | 10 mg | | | | [...] +-------+ +--------+---+---+ +-------+ +--------+---+---+ | Given | 09/09/20 | 0.5 mg | | | | [...] + +---------+ +---+---+---+ | morphine 5 mg/mL SYSTEMS DEVELOPMENT CONSULTANT syringe | New Bag | 07/02/20 | | | | | Intravenous, CONTINUOUS, Starting | | 14 3:35 | | | | | Tue07/02/14 at 1545, for adult | | PM PDT | | | | | patients LESS than 65 years old | | | | | | | and NO risk of sleep apnea, | | | | | | | Post-op/Phase II, Loading | | | | | | | Dose(mg): 0, Starting SYSTEMS DEVELOPMENT CONSULTANT | | | | | | | Dose(mg): 1, Incremental Increase | | | | | | | SYSTEMS DEVELOPMENT CONSULTANT Dose(mg): 0.5, Maximum SYSTEMS DEVELOPMENT CONSULTANT | | | | | | | [...] 10:03 | | | | | on 07/02/14 at 1700 | | AM PDT | [...]
--- OUTSIDE RECORDS SUMMARY | ~2020-08-08 | XMS | Encounter Summary ---
Demographics + + + | Address | [address] [facility] [address] | | | [place] [address] | + + + | Home Phone [...] [place] | | | | | [address] | | + + + + + Care Team Providers + +------+ + | Care Catering Coordinator Name | Role | Phone | [...] + + | 06/12/ | Office | [facility] | Chris Nicole, | Spondylisthesis | | 2013 | Visit | NEUROSURGERY [address] | PA-C [address] | (Primary Dx); | | | | [address] | [place], [place] | Radiculopathy of | | | | [place], [place] | [address] | leg; Lumbar spine | | | | [address] | | instability; Lumbar | | | | [phone] | | spondylosis; | | | | [...] [address] [facility] [place], [place] [id number] FAX: NEUROSURGERY HISTORY AND PHYSICAL EXAMINATION CHIEF [...] Take 15 mg by mouth nightl y. 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
--- OUTSIDE RECORDS SUMMARY | ~2020-08-08 | XMS | Encounter Summary ---
Demographics + + + | Address | [address] [facility] [address] | | | [place] [address] | + + + | Home Phone [...] [place] | | | | | [address] | | + + + + + Care Team Providers + +------+ + | Care State Farm Agent Name | Role | Phone | + +------+ + | Basim Bolanos MD | PCP | | + +------+ + Encounter Details +--------+ + + + + | Date | Type | Department | Care Team | Description | +--------+ + + + + | 02/22/ | Abstract | [facility] [place] | [facility], | | | 2012 | | GASTROENTEROLOGY | FORTUNATO Thomas [address] | | | | | [address] | [address] | | | | | [address] [place], [place] | [place], [place] | | | | | [address] | [address] | | | | | [phone] | | | +--------+ + + + [...]
--- OUTSIDE RECORDS SUMMARY | ~2020-08-08 | XMS | Encounter Summary ---
Demographics + + + | Address | [address] [facility] [address] | | | [place] [address] | + + + | Home Phone [...] [place], [place] | | | | | [address] | | + + + + + Care Team Providers + +------+ + | Care Relief Salesperson Name | Role | Phone | + +------+ + PCP | Unavailable | + +------+ + Encounter Details +--------+ + + + + | Date | Type | Department | Care Team | Description | +--------+ + + + + | 03/13/ | Hospital | [facility] | | | | 1996 - | Encounter | MED CTR GENERIC OP | | | | | | CONV DEPT [address] | | | | 03/21/ | | [address], | | | | 1996 | | [place] [address] | | | | | | [phone] | | | +--------+ + + + [...]
--- OUTSIDE RECORDS SUMMARY | ~2020-08-08 | XMS | Encounter Summary ---
Demographics + + + | Address | [address] [facility] [address] | | | [place] [address] | + + + | Home Phone [...] [place] | | | | | [address] | | + + + + + Care Team Providers + +------+ + | Care Manager Work Name | Role | Phone | + +------+ + | Hari Samson DO | PCP | | + +------+ + Encounter Details +--------+ + + + + | Date | Type | Department | Care Team | Description | +--------+ + + + + | 06/12/ | Hospital | [facility] | Frandy Teresa, | No Show | | 2014 | Encounter | MED CTR | DO [address] | | | | | ELECTRODIAGNOSTICS | [address] [place], [place] | | | | | [address] [place] | [address] | | | | | [place] [address] | | | | | | [phone] | | | +--------+ + + + [...]
--- OUTSIDE RECORDS SUMMARY | ~2020-08-08 | XMS | Encounter Summary ---
Demographics + + + | Address | [address] [facility] [address] | | | [place] [address] | + + + | Home Phone [...] [place] | | | | | [address] | | + + + + + Care Team Providers + +------+ + | Care Ecommerce Manager Name | Role | Phone | [...] | Frandy Simons DO | [address] | | | | | of skin | [address] | [place], | | | | | sensation | [address] | [place] | | | | | Arthrodesis | [place] | [address] | | | | | status Left | [address] | Phone: | | | | | leg | Phone: | [phone] | | | | | weakness | [phone] | Fax: | | | | | Procedures | Fax: | [phone] | | | | | MRI Lumbar | [phone] | | | | | | Spine [...] [place], [place] | | | | | [place], [place] | [address] | | | | | [address] | | | | | | [phone] | | | +--------+ + + + [...] scheduled cindy for her MRI here at [facility] on 08/19. SHAYNE ARAGON elephone [...] the round structure with high T1 and R2aykbbw in the right L3 vertebral | | [...] + | MISCELLANEOUS LAB | | | [phone] | + +---------+ + + | MISCELANIOUS LAB | | | [phone] | + +---------+ + + documented in [...]
--- OUTSIDE RECORDS SUMMARY | ~2020-08-08 | XMS | Encounter Summary ---
Demographics + + + | Address | [address] [facility] [address] | | | [place] [address] | + + + | Home Phone [...] [place], [place] | | | | | [address] | | + + + + + Care Team Providers + +------+ + | Care Hotel General Manager Name | Role | Phone | + +------+ + PCP | Unavailable | + +------+ + Encounter Details +--------+ + + + + | Date | Type | Department | Care Team | Description | +--------+ + + + + | 06/19/ | Hospital | [facility] | | | | 1991 - | Encounter | MED CTR GENERIC PSY | | | | | | CONV DEPT [address] | | | | 06/24/ | | [place], | | | | 1991 | | [place] [address] | | | | | | [phone] | | | +--------+ + + + [...]
--- OUTSIDE RECORDS SUMMARY | ~2020-08-08 | XMS | Encounter Summary ---
Demographics + + + | Address | [address] [facility] [address] | | | [place] [address] | + + + | Home Phone [...] [place] | | | | | [address] | | + + + + + Care Team Providers + +------+ + | Care Backhaul Driver Name | Role | Phone | [...] + + | 08/20/ | Documentati | [facility] | Katharine Moncada, | Other (urgent | | 2019 | on | CARDIOLOGY GENESIS | Technologist | report) | | | | [address] | | | | | | [place] | | | | | | [address] | | | | | | [phone] | | | +--------+ + + + [...]
--- OUTSIDE RECORDS SUMMARY | ~2020-08-08 | XMS | Encounter Summary ---
Demographics + + + | Address | [address] [address] [facility] [address] | | | [place] [address] | + + + | Home Phone [...] [place] | | | | | [address] | | + + + + + Care Team Providers + +------+ + | Care Aoc Plans Intelligence Officer Chief Name | Role | Phone | [...] + | 07/29/ | Telephone | [facility] | Frandy Cagle, | Other (multiple | | 2013 | | NEUROSURGERY [address] | DO [address] | questions) | | | | [address] [facility] [address] | [address] [place], [place] | | | | | [place], [place] | [id number] | | | | | [address] | | | | | | [phone] | | | +--------+ + + + [...] and I might get a repeat MRI. [place] ordered. Thanks. ddendum Note - Shayne Aragon [...] - 07/29/2014 11:19 AM PDTCall [facility]. She [...] refill be mailed to her for her [place] 10/325mg which was given to her on [...]
--- OUTSIDE RECORDS SUMMARY | ~2020-08-08 | XMS | Encounter Summary ---
Demographics + + + | Address | [address] [facility] [address] [facility] [address] | | | [place] [address] | + + + | Home Phone [...] [place] | | | | | [address] | | + + + + + Care Team Providers + +------+ + | Care Latin Professor Name | Role | Phone | [...] | 12/03/ | Refill | [facility] [place] | Frandy Teresa, | Medication Refill | | 2014 | | NEUROSURGERY [address] | DO [address] | | | | | [address] [facility] | [address] [place], [place] | | | | | [place], [place] | [id number] | | | | | [address] | | | | | | [phone] | | | +--------+--------+ + + + [...] Art Andersen NP Chart notes faxed to [phone] along with medication list. Sent request to update contac t information in [facility] To Kathy @ [facility] Support Team documented in this encounter Plan of Treatment Not on filedocumented as of this encounter Visit Diagnoses Not on filedocumented in this encounter"
--- OUTSIDE RECORDS SUMMARY | ~2020-08-08 | XMS | Encounter Summary ---
Demographics + + + | Address | [address] [facility] | | | [place] [address] | + + + | Home Phone [...] [place] | | | | | [address] | | + + + + + Care Team Providers + +------+ + | Care Pensions Retirement Plan Specialist Name | Role | Phone | [...] | Radiology | History [facility] | [facility] | | | | | atrial | DYE WINCH OPERATOR [address] | | | | | fibrillation | [address] | [place] | | | | | History of | [address] | [place], [place] | | | | | stroke | [place], [place] | [address] | | | | | Sinus | [address] | Phone: | | | | | tachycardia | Phone: | [phone] | | | | | by | [phone] | Fax: | | | | | electrocardi | Fax: | [phone] | | | | | ogram New | [phone] | | | | | | onset [...] + + | 01/09/ | Office | [facility] | Roxannmiguel ángelDora | History of atrial | | 2019 | Visit | CARDIOLOGY [place] | CAROLINE Mendez [address] | fibrillation | | | | [address] | GOETHALDaphney SCHAFER F | (Primary Dx); Benign | | | | [address] | [place] [address] | essential HTN; | | | | [place], [place] | [phone] | History of | | | | [address] | | hypothyroidism; | | | | [phone] | | Stress | | | | [...] an urgent Echo to be done at [facility] to follow up on new left bundle [...] of fatigue and shortness of breath. Her EDA5LV2 VASC score is 4 (stroke, HTN, gender) [...] go back to volunteering at the local [employer], though this plan will need to be on hold with current epidemic restrictions . She reports after she lost 160 pounds with a gastric sleeve that she was retested for sle ep apnea 2 years ago, and told the results negative, but has not had CPAP for 3 years She has previously seen Dr. Garland in [place], and different sleep provider in [facility] when lived over there. She reports [...] thirst or hunger. Psychiatric/Behavioral: Bipolar/Schizophrenia. Tx'd by [facility] Vaccines: Current on flu vaccine: 2019 Current on pneumonia vaccine:PPSV 23 05/29/2013 Habits/Social : Denies history of smoking. Denies EtOH use. Denies recreational or illici t drug use. Exercises sporadically. Lives in [place] . Outpatient Medications Prior to Visit [...] by mouth nightly. Blood Glucose Monitoring Suppl (Machine Safety Manangement VERIO FLEX SYSTEM) w/Device KIT by Does [...] s better controlled. LABS Labs: 12/26/2018: ( [facility] [...] and reviewed her EKG results with her television presenter, Dr. Peterson, who is in the cli vickie today, and the plan is to get an updated echo to evaluate her for any new wall motion ab normalities. If she has any wall motion abnormalities, she will need to have further evalua tion for ischemic heart disease in [place] such as a stress test or angiogram I reviewed her EKG with her, and discussed this plan with her. The Echo will be ordered on an urgent basis, is currently a restriction on all nonurgent testing at [facility] . She was agreeable to this plan [...] continuity of care purp ose Preston BUCIO [facility] 01/10/2020 docume nted in this encounter [...]
--- OUTSIDE RECORDS SUMMARY | ~2020-08-08 | XMS | Encounter Summary ---
Demographics + + + | Address | [address] [facility] | | | [place] [address] | + + + | Home Phone [...] [place] | | | | | [address] | | + + + + + Care Team Providers + +------+ + | Care Guidance And Control System Engineer Name | Role | Phone [...] + + | 09/10/ | Documentati | [facility] | Katharine Moncada, | Other (urgent | | 2019 | on | CARDIOLOGY GENESIS | Technologist | report) | | | | [address] | | | | | | [place] | | | | | | [address] | | | | | | [phone] | | | +--------+ + + + [...]
--- OUTSIDE RECORDS SUMMARY | ~2020-08-08 | XMS | Encounter Summary ---
Demographics + + + | Address | [address] [facility] | | | [place] [address] | + + + | Home Phone [...] [place] | | | | | [address] | | + + + + + Care Team Providers + +------+ + | Care Barber Shop Operator Name | Role | Phone | [...] | | | | | Procedures | ELEMENTARY TUTOR [address] | [address] | | | | | [place] OFFICE | | [address] | | | | | CONSULTATION | [address] | [place], [place] | | | | | NEW/ESTAB | [place], | [address] Phone: | | | | | PATIENT 60 | [place] [address] | [phone] | | | | | MIN | Phone: | Fax: | | | | | | [phone] | [phone] | | | | | | Fax: | | | | | | | [phone] | | +--------+--------+ + + + + Encounter Details +--------+---------+ + + + | Date | Type | Department | Care Team | Description | +--------+---------+ + + + | 05/02/ | Office | [facility] | Frandy Teresa, | Spondylolisthesis of | | 2013 | Visit | NEUROSURGERY [address] | DO [address] | lumbar region | | | | [address] | [address] [place], [place] | (Primary Dx); Lumbar | | | | [place] | [address] | stenosis; Lumbar | | | | [address] | | radicular pain; | | | | [phone] | | Lumbago | +--------+---------+ + + [...] [address] [facility] [address] [place], [place] [id number] FAX: NEUROSURGERY HISTORY AND PHYSICAL EXAMINATION CHIEF [...] Take 15 mg by mouth nightl y. 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 CRANIAL NERVES: II: Acuity is intact. [...] Intrinsics 5 5 Ulnar Intrinsics 5 5 Returning Officer Strength 5 5 Hip Flexion 5 4* [...] encounter Miscellaneous Notes Miscellaneous - ONBASE SCAN [facility] - 05/02/2014 12:00 AM PDTElectronically signed by [facility] at 05/08/2014 8:57 AM PDTMiscellaneous - ONBASE SCAN [facility] - 05/02/2014 12:00 AM PDTEle ctronically signed by [facility] at 05/08/2014 8:56 AM PDTdocumented in [...]
--- OUTSIDE RECORDS SUMMARY | ~2020-08-08 | XMS | Encounter Summary ---
Demographics + + + | Address | [address] [facility] | | | [place] [address] | + + + | Home Phone [...] [place] | | | | | [address] | | + + + + + Care Team Providers + +------+ + | Care Laminator Preforms Name | Role | Phone | + [...] + + | 10/25/ | Telephone | [facility] | Ashley Chávez | Other (Patient to | | 2019 | | CARDIOLOGY GENESIS Abad, Banking Services Advisor | stay on the same | | | | [address] | | dose. ) | | | | [place] | | | | | | [address] | | | | | | [phone] | | | +--------+ + + + [...] Miscellaneous Notes Telephone Encounter - Ashley Chávez Banking Services Advisor - 10/25/2019 8:44 AM PSTCall m cierra [...] Would not answer my calling her again. BRODY:[place]. el ephone Encounter - Ashley Chávez Banking Services Advisor - 10/25/2019 8:40 AM PST----- Mess age from Desiree Peterson DO sent at 10/24/2019 8:42 PM PST ----- Regarding: RE: Patient's Metoprolol. We can stay on the same dose of metoprolol for now. Thanks ----- Message ----- From: Ashley Chávez Banking Services Advisor Sent: 10/23/2019 10:52 AM PST To: Desiree [...]
--- OUTSIDE RECORDS SUMMARY | ~2020-08-08 | XMS | Encounter Summary ---
Demographics + + + | Address | [address] [facility] | | | [place] [address] | + + + | Home Phone [...] [place] | | | | | [address] | | + + + + + Care Team Providers + +------+ + | Care Territory Sales Executive Name | Role | Phone | + +------+ + | Natalee Andersen NP | PCP | | + +------+ + Encounter Details +--------+ + + + + | Date | Type | Department | Care Team | Description | +--------+ + + + + | 05/02/ | Hospital | [facility] | Frandy Teresa, | Back pain | | 2013 | Encounter | MED CTR XRAY [address] | DO [address] | | | | | [place] | [address] [place], [place] | | | | | [place] [address] | [address] | | | | | [phone] | | | +--------+ + + + [...] + + + +---------+ + + | [place]-3 Fatty | Take 1,000 mg by | [...] + | MISCELLANEOUS LAB | | | [phone] | + +---------+ + + | MISCELANIOUS LAB | | | [phone] | + +---------+ + + documented in this encounter Visit Diagnoses + + | Diagnosis | + + | Back pain Backache, unspecified | + + documented in this encounter"
--- OUTSIDE RECORDS SUMMARY | ~2020-08-08 | XMS | Encounter Summary ---
Demographics + + + | Address | [address] [facility] | | | [place] [address] | + + + | Home Phone [...] [place] | | | | | [address] | | + + + + + Care Team Providers + +------+ + | Care Student Services Dean Name | Role | Phone | [...] + + | 08/20/ | Documentati | [facility] | Katharine Moncada, | Other (urgent | | 2019 | on | CARDIOLOGY GENESIS | Technologist | report) | | | | [address] | | | | | | [place] | | | | | | [address] | | | | | | [phone] | | | +--------+ + + + [...]
--- OUTSIDE RECORDS SUMMARY | ~2020-08-08 | XMS | Encounter Summary ---
Demographics + + + | Address | [address] [facility] | | | [place] [address] | + + + | Home Phone [...] [place], [place] | | | | | [address] | | + + + + + Care Team Providers + +------+ + | Care Regional Forester Name | Role | Phone | + +------+ + PCP | Unavailable | + +------+ + Encounter Details +--------+ + + + + | Date | Type | Department | Care Team | Description | +--------+ + + + + | 12/31/ | Hospital | [facility] | | | | 1996 | Encounter | MED CTR XRAY [address] | | | | | | [place] | | | | | | [place] [address] | | | | | | [phone] | | | +--------+ + + + [...]
--- OUTSIDE RECORDS SUMMARY | ~2020-08-08 | XMS | Encounter Summary ---
Demographics + + + | Address | [address] [facility] | | | [place] [address] | + + + | Home Phone [...] [place], [place] | | | | | [address] | | + + + + + Care Team Providers + +------+ + | Care Business Process Architect Name | Role | Phone | + +------+ + PCP | Unavailable | + +------+ + Encounter Details +--------+ + + + + | Date | Type | Department | Care Team | Description | +--------+ + + + + | 04/16/ | Hospital | [facility] | | | | 1997 | Encounter | MED CTR XRAY [address] | | | | | | [place] | | | | | | [place] [address] | | | | | | [phone] | | | +--------+ + + + [...]
--- OUTSIDE RECORDS SUMMARY | ~2020-08-08 | XMS | Encounter Summary ---
Demographics + + + | Address | [address] [facility] | | | [place] [address] | + + + | Home Phone [...] [place] | | | | | [address] | | + + + + + Care Team Providers + +------+ + | Care Retail Sales Professional Name | Role | Phone | [...] + + | 09/10/ | Documentati | [facility] | Katharine Moncada, | Other (urgent | | 2019 | on | CARDIOLOGY GENESIS | Technologist | report) | | | | [address] | | | | | | [place] | | | | | | [address] | | | | | | [phone] | | | +--------+ + + + [...]
--- OUTSIDE RECORDS SUMMARY | ~2020-08-08 | XMS | Encounter Summary ---
Demographics + + + | Address | [address] [facility] | | | [place] [address] | + + + | Home Phone [...] [place] | | | | | [address] | | + + + + + Care Team Providers + +------+ + | Care Hearing Stenographer Name | Role | Phone | + [...] as of this encounter Procedure Notes Interface, Senior Business Consultant In - 10/24/2006 3:[address] [id number] [facility] OPERATION RECORD Med Rec No.: [id number] Date: 10/28/1998 Name: Cindy Arndt ATTENDING SURGEON: aLzaro Tello M.D. ASSISTANTS: Jose Dawson M.D. POSTOPERATIVE [...] | Transcriptions | + + | Interface, Senior Business Consultant In - 10/24/2006 3:09 AM PST | | [address] | | [place], [place] [address] [place] | | [facility] RECORDMed Rec No.: [id number] Date: | [...]
--- OUTSIDE RECORDS SUMMARY | ~2020-08-08 | XMS | Encounter Summary ---
Demographics + + + | Address | [address] [facility] | | | [place] [address] | + + + | Home Phone [...] [place], [place] | | | | | [address] | | + + + + + Care Team Providers + +------+ + | Care Rn Social Work Name | Role | Phone | + +------+ + PCP | Unavailable | + +------+ + Encounter Details +--------+ + + + + | Date | Type | Department | Care Team | Description | +--------+ + + + + | 02/02/ | Hospital | [facility] | | | | 1997 - | Encounter | MED CTR GENERIC PSY | | | | | | CONV DEPT [address] | | | | 02/05/ | | [place], | | | | 1997 | | [place] [address] | | | | | | [phone] | | | +--------+ + + + [...]
--- OUTSIDE RECORDS SUMMARY | ~2020-08-08 | XMS | Encounter Summary ---
Demographics + + + | Address | [address] [facility] | | | [place] [address] | + + + | Home Phone [...] [place] | | | | | [address] | | + + + + + Care Team Providers + +------+ + | Care Restaurant Host Name | Role | Phone | [...] | 08/16/ | Documentati | [facility] | Katharine Moncada, | Other (urgent | | 2019 | on | CARDIOLOGY GENESIS | Technologist | report) | | | | [address] | | | | | | [place] | | | | | | [address] | | | | | | [phone] | | | +--------+ + + + [...]
--- OUTSIDE RECORDS SUMMARY | ~2020-08-08 | XMS | Encounter Summary ---
Demographics + + + | Address | [address] [facility] | | | [place] [address] | + + + | Home Phone [...] [place] | | | | | [address] | | + + + + + Care Team Providers + +------+ + | Care Hospitality Intern Name | Role | Phone | [...] + + | 08/30/ | Telephone | [facility] | Ashley Chávez | Other (Patient wants | | 2018 | | CARDIOLOGY [place] Abad, Lieutenant General | to take monitor | | | | [address] | | off. ) | | | | [address] | | | | | | [place] | | | | | | [address] | | | | | | [phone] | | | +--------+ + + + [...] Miscellaneous Notes Telephone Encounter - Ashley Chávez, Lieutenant General - 08/30/2019 9:19 AM Rory foster called [...] thankful for the news. Patient stated understanding JKASSIE:DRUG CLERK-AAMA. c umented in this encounter Plan of Treatment Not on filedocumented as of this encounter Visit Diagnoses Not on filedocumented in this encounter"
--- OUTSIDE RECORDS SUMMARY | ~2020-08-08 | XMS | Encounter Summary ---
Demographics + + + | Address | [address] [facility] | | | [place] [address] | + + + | Home Phone [...] [place], [place] | | | | | [address] | | + + + + + Care Team Providers + +------+ + | Care Clinical Staff Anesthesiologist Name | Role | Phone | + +------+ + PCP | Unavailable | + +------+ + Encounter Details +--------+ + + + + | Date | Type | Department | Care Team | Description | +--------+ + + + + | 12/22/ | Hospital | [facility] | | | | 1993 - | Encounter | MED CTR GENERIC PSY | | | | | | CONV DEPT [address] | | | | 12/25/ | | [place], | | | | 1993 | | [place] [address] | | | | | | [phone] | | | +--------+ + + + [...]
--- OUTSIDE RECORDS SUMMARY | ~2020-08-08 | XMS | Encounter Summary ---
Demographics + + + | Address | [address] [facility] | | | [place] [address] | + + + | Home Phone [...] [place] | | | | | [address] | | + + + + + Care Team Providers + +------+ + | Care Room Attendants Name | Role | Phone | + [...] + | 11/25/ | Telephone | [facility] | Frandy Teresa, | Medication Refill | | 2014 | | NEUROSURGERY [address] | DO [address] | Assistance | | | | [address] | [address] [place], [place] | | | | | [place], [place] | [id number] | | | | | [address] | | | | | | [phone] | | | +--------+ + + + [...] get a refill of her pain medication Hahira 10-325 mg. I l et her know we are beyond the 90 days after her surgery and refills need to come from her [facility] care provider. She requests us to update her PCP. documented in t his encounter Plan of Treatment Not on filedocumented as of this encounter Visit Diagnoses Not on filedocumented in this encounter"
--- OUTSIDE RECORDS SUMMARY | ~2020-08-08 | XMS | Encounter Summary ---
Demographics + + + | Address | [address] [facility] | | | [place] [address] | + + + | Home Phone [...] [place] | | | | | [address] | | + + + + + Care Team Providers + +------+ + | Care Pricing Associate Name | Role | Phone | + +------+ + | Natalee Andersen NP | PCP | | + +------+ + Encounter Details +--------+ + + + + | Date | Type | Department | Care Team | Description | +--------+ + + + + | 06/25/ | Hospital | [facility] | Frandy Teresa, | Diabetes mellitus | | 2014 | Encounter | MED CTR OR INTRA OP | DO [address] | ([facility]) (Primary Dx) | | | | [address] | [address] [place], [place] | | | | | [place], [place] | [address] | | | | | [address] | | | | | | [phone] | | | +--------+ + + + [...] + + + +---------+ + + | [place]-3 Fatty | Take 1,000 mg by | [...] this en counter H&P Notes ONBRUCE ABREU [facility] - 06/21/2014 12:00 AM PDT 14 [...] MD at 06/26/2014 8:05 AM PDTONBASE SCAN [facility] - 06/26 12:00 AM PDT NBASE SERA N [facility] - 06/26/2014 12:00 AM PDT NBASE SCAN [facility] - 06/12/2014 12:00 AM PDTElectronically signed by Mariah Schulte at 06/12 7:30 AM PDTONBASE SCAN [facility] - 06/11/2014 12:00 AM PDT documented in this encounter Miscellaneous Notes Miscellaneous - ONBASE SCAN [facility] - 06/26/2014 12:00 AM PDT lan [...] stenosis, lumbar region, without neurogenic claudication ). Layout Artist visit is in response to an electronic spiritual care consult request. Patient wa s resting comfortably in bed; she was attended by her mom and dad - both sate nearby and see med very attentive and supportive. Cindy is Shinto, attends [employer], and is strong in her rangel. She is excited about taking care of her back problem and fe els very secure in Dr. Teresa's care. She welcomed prayer, and expressed appreciation for th visit. Follow up with regular visits, emotional and spiritual support. iscellaneo us - ONBASE SCAN [facility] - 06/25/2014 12:00 AM PDTElectronically signed [...] | mL/min/1.73m2 | [facility] | | | Kazakh | RATE,ESTIMATED | | MEDICAL | | | | mL/min/1.45b2Mysm than | | CENTER - | | [...] + | [facility] | [address] | [place] | [phone] | | [facility] | | [address] | | | - LABORATORY | | | | + + + + + | [facility] | [address] | [place] | | | [facility] | | [address], [facility] | | | - LABORATORY | | [...] + | [facility] | [address] | [place] | [phone] | | [facility] | | [address] | | | - LABORATORY | | | | + + + + + | [facility] | [address] | [place], [place] | | | [facility] | | [address], [facility] | | | - LABORATORY | | [...] + | [facility] | [address] | [place] | [phone] | | [facility] | | [address] | | | - LABORATORY | | | | + + + + + | [facility] | [address] | [place] | | | [facility] | | [address] | | | - LABORATORY [...] + | [facility] | [address] | [place] | | | [facility] | | [address] | | | - BLOOD BANK | [...] + | [facility] | [address] | [place], [place] | [phone] | | [facility] | | [address] | | | - LABORATORY | | | | + + + + + | [facility] | [address] | [place], [place] | | | [facility] | | [address] [place] [address] | | | - LABORATORY | | [...]
--- OUTSIDE RECORDS SUMMARY | ~2020-08-08 | XMS | Encounter Summary ---
Demographics + + + | Address | [address] [facility] | | | [place] [address] | + + + | Home Phone [...] [place] | | | | | [address] | | + + + + + Care Team Providers + +------+ + | Care Public Housing Interviewer Name | Role | Phone | + [...] + + | 08/24/ | Documentati | [facility] | Katharine Moncada, | Other (urgent | | 2019 | on | CARDIOLOGY GENESIS | Technologist | report) | | | | [address] | | | | | | [place] | | | | | | [address] | | | | | | [phone] | | | +--------+ + + + [...]
--- OUTSIDE RECORDS SUMMARY | ~2020-08-08 | XMS | Encounter Summary ---
Demographics + + + | Address | [address] [facility] [address] | | | [place] [address] | + + + | Home Phone [...] [place] | | | | | [address] | | + + + + + Care Team Providers + +------+ + | Care Orthophotography Technician Name | Role | Phone | [...] + + | 12/17/ | Office | [facility] | Dora De La Torre | History of atrial | | 2020 | Visit | CARDIOLOGY [place] | [address] | fibrillation; Benign | | | | [address] | [address] | essential HTN; | | | | [address] | [place] [address] | History of | | | | [place], [place] | [phone] | hypothyroidism; | | | | [address] | | Stress | | | | [phone] | | hyperglycemia; | | | | | | History of sleep | | | | | | apnea; History of | | | | | | stroke; Obesity, | | | | | | Class III, BMI | | | | | | 40-49.9 (morbid | | | | | | obesity) ([facility]); Mild | | | | [...] of fatigue and shortness of breath. Her KMP2KF7 VASC score is 4 (stroke, HTN, gender) , and Dr. Peterson did not anticoagulate he r due to low incidence of atrial fib. Her current and previous testing and procedures are detailed below. She was seen in the emergency room on October 11, [address] [facility] and presented wi th paranoia feeling that knives were chasing her , so went to the emergency room so that she could feel safe and Had [facility] evaluation and discharged home [...] 405 and disposition plan was arranged by [facility], and she was to be started on Abilify. She was seen again in the emergency room on October 19 and , [id number] for sim ilar complaints with increased delusions, [...] She has previously seen Dr. Garland in [place], and different provider in [place] when lived over there. She reports she [...] thirst or hunger. Psychiatric/Behavioral: Bipolar/Schizophrenia. Tx'd by [facility] Vaccines: Current on flu vaccine: 2019 Current on pneumonia vaccine:PPSV 23 05/29/2013 Habits/Social : Denies history of smoking. Denies EtOH use. Denies recreational or illici t drug use. Exercises sporadically. Lives in [place] . Outpatient Medications Prior to Visit Medication [...] Take by mouth. Blood Glucose Monitoring Suppl (Stealz VERIO FLEX SYSTEM) w/Device KIT by Does not ap ply route. budesonide-formoterol (SYMBICORT) 160-4.5 mcg/puff inhaler Inhale 2 puffs into the lung s 2 (two) times daily. calcium carbonate antacid (TUMS ULTRA 1000) 1000 MG CHEW Chew and swallow 1,000 mg 4 ti mes daily as needed. Cholecalciferol (VITAMIN D-3) 66179 units CAPS Take 50,000 Units by mouth [...] chest discomfort, patient unable to walk on eirberto dmill. Resting EKG normal sinus rhythm, arrhythmias [...] nonspecific ST-T wave abnormality rate 82 bpm, IN 176 ms, QRS 80 ms, QTC 446 ms tracing personally reviewed by me EK12/17/2019: Sinus tachycardia, nonspecific ST wave abnormalities, rate 105 bpm, IN 196 ms, QRS 74 ms, QTC 430 ms, tracing personally reviewed by me, and compared to EKG performed in February 2019, rate is less well-controlled LABS Labs: 12/26/2018: ( [facility])CMP: Sodium 139, potassium 4.2, chloride 99, BUN 10, creatinine 0. 7, BNP 28. CBC: WBC 7.8, hemoglobin 14.3, hematocrit 42.7, platelets 214 Labs: 09/28/2019:( [facility]) CBC: WBC 7.8, hemoglobin 14.9, hematocrit 43.8, platelets 221. C MP: Sodium 132, potassium 4.2, chloride 95, AST 76, ALT 76, alk phos 134 Labs: 10/11/2019:( [facility]) CBC: WBC 6.7, RBC 4.97, hemoglobin 15.2, hematocrit 44.7, platel ets 200. CMP: Glucose 385, BUN 7, creatinine 0.62, GFR 97, sodium 131, potassium 4.1, chlor kelby 95, albumin 4.3, total bilirubin 0.6, AST 75, ALT 73, alk phos 144. Thyroid: TSH 4.27 Labs: 10/12/2020:( [facility]) CBC: WBC 7, RBC 4.93, hemoglobin 14.7, hematocrit 44.1, platele ts 186 normal UA CMP: Glucose 381, BUN 6, creatinine 0.63, GFR 95, sodium 133, potassium 3.8 , chloride 97, albumin 4.3, total bili 0.6, AST 62, ALT 75, alk phos 145 thyroid: TSH 3.07 Labs: 10/20/2019:( [facility]) CBC: WBC 7.1, RBC 4.93, [...] a prescription to her local pharmacy [facility] . I made no other changes to [...] Obesity, Class III, BMI 40-49.9 (morbid obesity) ([facility]) 8. Mild hyperlipidemia Orders Placed This Encounter [...] for continuity of care purp osHannah BUCIO [facility] 12/17/2019 docume nted in this [...] | | | | | | Yesenia ([id number]) on | | | | | | [...]
--- OUTSIDE RECORDS SUMMARY | ~2020-08-08 | XMS | Encounter Summary ---
Demographics + + + | Address | [address] [facility] [address] | | | [place] [address] | + + + | Home Phone [...] [place] | | | | | [address] | | + + + + + Care Team Providers + +------+ + | Care Salary Manager Name | Role | Phone | [...] + + | 08/16/ | Telephone | [facility] | Ashley Chávez | Other (Called to | | 2018 | | CARDIOLOGY [place] | Pollo, Water And Sewer Systems Superintendent | tell patient what | | | | [address] | | Nicholas said. ) | | | | [place] [address] | | | | | | [place] | | | | | | [address] | | | | | | [phone] | | | +--------+ + + + [...] Miscellaneous Notes Telephone Encounter - Ashley Chávez, Water And Sewer Systems Superintendent - 08/16/2019 2:57 PM PDTCall m cierra to patient to advise of Dr. Peterson's notes. Patient stated understanding. BRODY:IRINA-AAMA el ephone Encounter - Ashley Chávez Water And Sewer Systems Superintendent - 08/16/2019 2:56 PM PDT----- Mess age [...] Thanks. ----- Message ----- From: Lesa Ochoa Water And Sewer Systems Superintendent Sent: 08/13/2019 13:31 To: Desiree Peterson DO [...]
--- OUTSIDE RECORDS SUMMARY | ~2020-08-08 | XMS | Encounter Summary ---
Demographics + + + | Address | [address] [facility] | | | [place] [address] | + + + | Home Phone [...] [place] | | | | | [address] | | + + + + + Care Team Providers + +------+ + | Care Tile Machine Operator Name | Role | Phone [...] [place] | | | | | [place] [address] | [address] | | | | | [phone] | | | +--------+ + + + [...]
--- OUTSIDE RECORDS SUMMARY | ~2020-08-08 | XMS | Encounter Summary ---
Demographics + + + | Address | [address] [facility] | | | [place] [address] | + + + | Home Phone [...] [place] | | | | | [address] | | + + + + + Care Team Providers + +------+ + | Care Ski Edge Painter Name | Role | Phone | + +------+ + PCP | Unavailable | + +------+ + Encounter Details +--------+ + + + + | Date | Type | Department | Care Team | Description | +--------+ + + + + | 05/25/ | Hospital | [facility] | | | | 1991 | Encounter | MED CTR LABORATORY | | | | | | [address] | | | | | | [place] | | | | | | [address] | | | | | | [phone] | | | +--------+ + + + [...]
--- OUTSIDE RECORDS SUMMARY | ~2020-08-08 | XMS | Encounter Summary ---
Demographics + + + | Address | [address] [facility] | | | [place] [address] | + + + | Home Phone [...] [place] | | | | | [address] | | + + + + + Care Team Providers + +------+ + | Care Manager Strategy Name | Role | Phone | [...] + + | 08/15/ | Documentati | [facility] | Katharine Moncada, | Other (urgent | | 2019 | on | CARDIOLOGY [place] | Technologist | report) | | | | [address] | | | | | | [place] | | | | | | [address] | | | | | | [phone] | | | +--------+ + + + [...]
--- OUTSIDE RECORDS SUMMARY | ~2020-08-08 | XMS | Encounter Summary ---
Demographics + + + | Address | [address] [facility] | | | [place] [address] | + + + | Home Phone [...] [place] | | | | | [address] | | + + + + + Care Team Providers + +------+ + | Care Transplant Coordinator Name | Role | Phone | [...] [address] | [address] [place], [place] | fusion | | | | [place] | [address] | | | | | [address] | | | | | | [phone] | | | +--------+ + + + [...]
--- OUTSIDE RECORDS SUMMARY | ~2020-08-08 | XMS | Encounter Summary ---
Demographics + + + | Address | [address] [facility] | | | [place] [address] | + + + | Home Phone [...] [place] | | | | | [address] | | + + + + + Care Team Providers + +------+ + | Care Pressure Sealer And Tester Name | Role | Phone | [...] + + | 05/08/ | Telephone | [facility] | Dora De La Torre | Testing | | 2020 | | CARDIOLOGY [place] | [address] | | | | | [address] | [address] | | | | | [address] | [place] [address] | | | | | [place] | [phone] | | | | | [address] | | | | | | [phone] | | | +--------+ + + + [...]
--- OUTSIDE RECORDS SUMMARY | ~2020-08-08 | XMS | Encounter Summary ---
Demographics + + + | Address | [address] [facility] [address] | | | [place] [address] | + + + | Home Phone [...] [place] | | | | | [address] | | + + + + + Care Team Providers + +------+ + | Care Senior Storage Engineer Name | Role | Phone | [...] | | | [address] [place] | [place] [address] | | | | | [place] [address] | | | | | | [phone] | | | +--------+ + + + [...]
--- OUTSIDE RECORDS SUMMARY | ~2020-08-08 | XMS | Encounter Summary ---
Demographics + + + | Address | [address] [facility] | | | [place] [address] | + + + | Home Phone [...] [place] | | | | | [address] | | + + + + + Care Team Providers + +------+ + | Care Digital Strategy Specialist Name | Role | Phone | [...] [place] | | | | | | [address] | | | | | | [phone] | | | +--------+ + + + [...] as of this encounter Progress Notes Katharine Mnocada, Technologist - 08/13/2019 9:12 AM PDTReceived urgent [...]
--- OUTSIDE RECORDS SUMMARY | ~2020-08-08 | XMS | Encounter Summary ---
Demographics + + + | Address | [address] [facility] | | | [place] [address] | + + + | Home Phone [...] Author | [facility] | | | [...] [place] | | | | | [address] | | + + + + + Care Team Providers + +------+ + | Care Calibration Checker Name | Role | Phone | + +------+ + | Natalee Andersen NP | PCP | | + +------+ + Encounter Details +--------+ + + + + | Date | Type | Department | Care Team | Description | +--------+ + + + + | 07/25/ | Hospital | [facility] | Frandy Teresa, | Status post lumbar | | 2014 | Encounter | MED CTR XRAY [address] | DO [address] | spinal fusion | | | | [place] | [address] [place], [place] | | | | | [place] [address] | [address] | | | | | [phone] | | | +--------+ + + + [...] + + + +---------+ + + | Kualapuu-3 Fatty | Take 1,000 mg by | [...] + | MISCELLANEOUS LAB | | | [phone] | + +---------+ + + | MISCELANIOUS LAB | | | [phone] | + +---------+ + + documented in this encounter Visit Diagnoses + + | Diagnosis | + + | Status post lumbar spinal fusion Arthrodesis status | + + documented in this encounter"
--- OUTSIDE RECORDS SUMMARY | ~2020-08-08 | XMS | Encounter Summary ---
Demographics + + + | Address | [address] [facility] | | | [place] [address] | + + + | Home Phone [...] [place] | | | | | [address] | | + + + + + Care Team Providers + +------+ + | Care Machine Striper Name | Role | Phone | + +------+ + PCP | Unavailable | + +------+ + Encounter Details +--------+ + + + + | Date | Type | Department | Care Team | Description | +--------+ + + + + | 02/22/ | Hospital | [facility] | | | | 1996 | Encounter | MED CTR EMERGENCY | | | | | | CENTER [address] | | | | | | [place] | | | | | | [address] | | | | | | [phone] | | | +--------+ + + + [...]
--- OUTSIDE RECORDS SUMMARY | ~2020-08-08 | XMS | Encounter Summary ---
Demographics + + + | Address | [address] [facility] | | | [place] [address] | + + + | Home Phone [...] [place] | | | | | [address] | | + + + + + Care Team Providers + +------+ + | Care Health Care Specialist Name | Role | Phone [...] + + | 02/05/ | Telephone | [facility] | Ashley Chávez | Other (Patient | | 2020 | | CARDIOLOGY [place] | Pollo, Generator Switchboard Operator | ) | | | | [address] | | | | | | [place] | | | | | | [address] | | | | | | [phone] | | | +--------+ + + + [...] encounter Miscellaneous Notes Telephone Encounter - BrittDora, TIRE FABRICATOR - 02/07/2020 3:12 PM PDTI called her [...] her in the clinic before I m ceirra any medications changes, and she said she understood and could wait until she see me nex t week . elephone Enco irma - Ashley Chávez, Generator Switchboard Operator - 02/06/2020 2:53 PM PDTPatient states that [...]
--- OUTSIDE RECORDS SUMMARY | ~2020-08-08 | XMS | Encounter Summary ---
Demographics + + + | Address | [address] [facility] | | | [place] [address] | + + + | Home Phone [...] [place] | | | | | [address] | | + + + + + Care Team Providers + +------+ + | Care Reconstructive Dentist Name | Role | Phone | [...] + + | 07/24/ | Telephone | [facility] | Ashley Chávez | Other (Patient is | | 2018 | | CARDIOLOGY [place] Abad, Car Pusher | worried about paying | | | | [address] | | for monitor. ) | | | | [place] | | | | | | [address] | | | | | | [phone] | | | +--------+ + + + [...] Miscellaneous Notes Telephone Encounter - Ashley Chávez, Car Pusher - 07/24/2019 11:13 AM MELANIEPatigutierrez t says [...] gals to see what can be done. JKASSIE:HEAD STRENGTH AND CONDITIONING COACH-AAMA. doc umented in this encounter Plan of Treatment Not on filedocumented as of this encounter Visit Diagnoses Not on filedocumented in this encounter"
--- OUTSIDE RECORDS SUMMARY | ~2020-08-08 | XMS | Encounter Summary ---
Demographics + + + | Address | [address] [facility] [facility] [address] | | | [place] [address] | + + + | Home Phone [...] [place] | | | | | [address] | | + + + + + Care Team Providers + +------+ + | Care Terminal Clerk Name | Role | Phone | + +------+ + | Thierry Fry MD | PCP | | + +------+ + Encounter Details +--------+ + + + + | Date | Type | Department | Care Team | Description | +--------+ + + + + | 03/06/ | Hospital | [facility] | Katharine Cardona PA-C | Essential | | 2015 | Encounter | MED CTR LABORATORY | [address] | hypertension | | | | [address] [place] | [place] [address] | | | | | [place], [place] | [phone] | | | | | [address] | | | | | | [phone] | | | +--------+ + + + [...] 0 | | | | (VITAMIN D-3) [address] | mouth Once a week. | | [...] + + + +---------+ + + | Cashion-3 Fatty | Take 1,000 mg by | 60 each | 5 | 03/09/20 | | | Acids (FISH OIL | mouth 2 times daily. | | | 15 | 9 | | CONCENTRATE) 1000 MG | | | | | | | CAPS | | | | | | + + + +---------+ + + | Cashion-3 Fatty | Take 1,000 mg by | [...] | 0.66 | 0.60 - 1.30 | [facility] | | | | | mg/dL | [facility] | | | | | | MEDICAL | | | | | | CENTER - | | | | | | LABORATORY | | + + + + + + | eGFR, | >60Comment: GLOMERULAR | >=60 | [facility] | | | non- | FILTRATION | mL/min/1.73m2 | [facility] | | | [place] | RATE,ESTIMATED | | MEDICAL | | | | mL/min/1.56z2Sjvu than | | CENTER - | | [...] ST. | [address] | [place], [place] | [phone] | | [facility] | | [address] | | | - LABORATORY | | | | + + + + + documented in this encounter Visit Diagnoses + + | Diagnosis | + + | Essential hypertension Unspecified essential hypertension | + + documented in this encounter"
--- OUTSIDE RECORDS SUMMARY | ~2020-08-08 | XMS | Encounter Summary ---
Demographics + + + | Address | [address] [facility] | | | [place] [address] | + + + | Home Phone [...] [place] | | | | | [address] | | + + + + + Care Team Providers + +------+ + | Care Guard Chief Name | Role | Phone | + +------+ + | Natalee Andersen NP | PCP | | + +------+ + Encounter Details +--------+ + + + + | Date | Type | Department | Care Team | Description | +--------+ + + + + | 06/25/ | Hospital | [facility] | Latricia Feliciano | | | 2014 | Encounter | MED CTR ACUTE | D, PT [address] | | | | | PHYSICAL THERAPY | [place] | | | | | [address] | [address] | | | | | [place] [address] | | | | | | [phone] | | | +--------+ + + + [...] + + + +---------+ + + | Aspen-3 Fatty | Take 1,000 mg by | [...]
--- OUTSIDE RECORDS SUMMARY | ~2020-08-08 | XMS | Encounter Summary ---
Demographics + + + | Address | [address] [facility] | | | [place] [address] | + + + | Home Phone [...] [place] | | | | | [address] | | + + + + + Care Team Providers + +------+ + | Care Harness Preparer Name | Role | Phone | [...] | | | | | mellitus, | [address] | [place] | | | | | controlled | Phone: | [phone] | | | | | (HCC) | [phone] | Phone: | | | | | History of | Fax: | [phone] | | | | | gastric | [phone] | Fax: | | | | | restrictive | | [phone] | | | | | surgery | [...] | Required | | hypertension | [address] [facility] | | | | | Lumbar | AVE [place] | [address] | | | | | radiculopath | [place], [place] | AVE | | | | | y Type 2 | [address] | [place] | | | | | diabetes | Phone: | [phone] | | | | | mellitus, | [phone] | Phone: | | | | | controlled | Fax: | [phone] | | | | | (HCC) | [phone] | Fax: | | | | | Obesity, | | [phone] | | | | | Class III, [...] | | FORTUNATO & Katharine BUCIO in [place]. | + + + | Other | [...] | [address], | [place] [address] | of thyroid (Primary | | | | [place] [address] | [phone] | Dx); Essential | | | | [phone] | | hypertension; Iron | | | [...] | | | | | ([facility]); Environmental | | | | [...] | | | | obesity) ([facility]); | | | | | | Type 2 diabetes | | | | | | mellitus, controlled | | | | | | ([facility]); Preventative | | | | [...] t be different from the original. Ask [facility] if they think it might be helpful [...] Cont your meds as prescribed. F/U with [facility] as scheduled Neuropathy Continue gabapentin. May consider increase if pain is not controlled. May benefit from switching from Paxil to one of the SNRIs or TCAs for analgesic effects, ho manju, she is doing so well on her current regimen it may not be worth making any changes an d find alternate ways to deal with the pain. Would be worth discussing with [facility] Psych Back Pain Will refer to water therapy (aqua fitness) at [facility] as request ed. ROGERS [...] 4. Schizoaffective disorder, bipolar type ([facility]) 5. Neuropathy Vitamin B-12 6. BACK PAIN, LUMBAR, WITH RADICULOPATHY Ambulatory referral to Physical Therapy 7. ROGERS on CPAP 8. Stroke ([facility]) 9. Environmental and seasonal allergies fluticasone (FLONASE) 50 mcg/nasal spray 10. Gastroesophageal reflux disease without esophagitis dexlansoprazole (DEXILANT) 60 mg D R capsule 11. History of gastric restrictive surgery Vitamin D, 25-Hydroxy Nutrition Services - External - AMB Referral 12. Obesity, Class III, BMI 40-49.9 (morbid obesity) ([facility]) Ambulatory referral to Physical Therapy Nutrition Services - External - AMB Referral 13. Type 2 diabetes mellitus, controlled ([facility]) Ambulatory referral to Physical Therapy [...] Cont your meds as prescribed. [facility] Neuropathy Continue gabapentin. [...] the pain. Would be worth discussing with [facility] professional. Back Pain Will refer to water therapy (aqua fitness) at [facility] as request ed. Cont home [...] plan. The above note was dictated using [employer] voice recognition software. It may have not been proofread in entirety. Minor errors in grammar may occur. CHIEF COMPLAINT Chief Complaint Patient presents with Establish Care Presents to establish care. Former patient of Natalee BUCIO & Katharine BUCIO in [place]. Other Possible stroke January 2015. Is now seeing Dr. Newman, changed to Plavix 02-27-15 from [facility]. Diabetes NIDDM. Checks blood sugars almost daily, [...] auditory, at 36. 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 She is now very well controlled on Saphris, Depakote, and Paxi l. She is followed by [facility] in [place]. She has DM2 that is well controlled [...] N/A; Surgeon: Frandy castellanos DO; Location: [facility] MAIN OR SOCIAL HISTORY History Social [...] mg by mouth Daily. Cholecalciferol (VITAMIN D-3) 95003 units CAPS Oral Take 50,000 Units by [...] Oral Take 10 mg by mouth nightly. Kinross-3 Fatty Acids (FISH OIL CONCENTRATE) 1000 MG [...] | | | | controlled ([facility]) | | | | | | Obesity, Class III, | | | | | | BMI 40-49.9 (morbid | | | | | | obesity) ([facility]) | | + + +--------+ + + | Nutrition Services - | Outpatient | Routin | Iron deficiency | Ordered: 03/06/2015 | | External - AMB | Referral | e | anemia Type 2 | | | Referral | | | diabetes mellitus, | | | | | | controlled ([facility]) | | | | | | History of gastric | | | | | | restrictive surgery | | | | | | Obesity, Class III, | | | | | | BMI 40-49.9 (morbid | | | | | | obesity) ([facility]) | | + + +--------+ [...] mL/min/1.73m2 | [facility] | | | [place] | RATE,ESTIMATED | | MEDICAL | | | | mL/min/1.32b7Xrmy than | | CENTER - | | [...] | | | | mg/dL | [facility] | | | | | | MEDICAL [...] + | [facility] | [address] | [place] | [phone] | | [facility] | | [address] | | | - LABORATORY | | [...] + + | Schizoaffective disorder, bipolar type ([facility]) Schizoaffective disorder, unspecified | | [...]
--- OUTSIDE RECORDS SUMMARY | ~2020-08-08 | XMS | Encounter Summary ---
Demographics + + + | Address | [address] [facility] [address] | | | [place] [address] | + + + | Home Phone [...] [place] | | | | | [address] | | + + + + + Care Team Providers + +------+ + | Care Roving Teller Name | Role | Phone | + [...] Clinic | | | | | | [facility], [address] | | | | | | [place], [place] | | | | | | [address] | | | | | | [phone] | | | +--------+ + + + [...] as of this encounter Progress Notes Interface, Allied Health Professional In - 12/11/2006 5:03 AM [facility] DATE: 07/03/97 INFECTIOUS DISEASE [...]
--- OUTSIDE RECORDS SUMMARY | ~2020-08-08 | XMS | Encounter Summary ---
Demographics + + + | Address | [address] [facility] | | | [place] [address] | + + + | Home Phone [...] [place] | | | | | [address] | | + + + + + Care Team Providers + +------+ + | Care Analyst Sales Name | Role | Phone | + +------+ + PCP | Unavailable | + +------+ + Encounter Details +--------+ + + + + | Date | Type | Department | Care Team | Description | +--------+ + + + + | 12/27/ | Hospital | [facility] | | | | 1997 | Encounter | MED CTR EMERGENCY | | | | | | CENTER [address] | | | | | | [place] | | | | | | [address] | | | | | | [phone] | | | +--------+ + + + [...]
--- OUTSIDE RECORDS SUMMARY | ~2020-08-08 | XMS | Encounter Summary ---
Demographics + + + | Address | [address] [facility] [address] | | | [place] [address] | + + + | Home Phone [...] [place] | | | | | [address] | | + + + + + Care Team Providers + +------+ + | Care Country Sales Manager Name | Role | Phone [...] | Specialty | Sleep | Diagnoses | Birtt, | Enrrique, | | | Services | Medicine | Left bundle | Dora Mendez, | Navdeep Shelley MD | | | Required | | branch | TURBINE ATTENDANT [address] | 19 | | | | | block | [place] | [facility] | | | | | Paroxysmal | [place] | SRI [address] | | | | | A-fib ([facility]) | [place], [place] | [address] | | | | | | [address] | [place], [place] | | | | | Schizoaffect | Phone: | [phone] Phone: | | | | | chris | [phone] | [phone] | | | | | disorder, | Fax: | Fax: | | | | | bipolar type | [phone] | [phone] | | | | | (HCC) | [...] + + | 04/24/ | Office | [facility] | Dora De La Torre | Left bundle branch | | 2020 | Visit | CARDIOLOGY [place] | CAROLINE Mendez [address] | block (Primary Dx); | | | | [address] | [address] [place] | Paroxysmal A-fib | | | | [address] | [place] [address] | ([facility]); Mild | | | | [place], [place] | [phone] | hyperlipidemia; | | | | [address] | | Benign essential | | | | [phone] | | HTN; Poorly | | | | | | controlled type 2 | | | | | | diabetes mellitus | | | | | | ([facility]); Syncope, | | | | | | [...] | | | | type ([facility]); Rapid | | | | | | [...] have referred you to Dr. 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 [...] also resol shelly with weight loss Her MFC3OF0 VASC score is 4 (stroke, HTN, gender) [...] She has previously seen Dr. Garland in [place], and different sleep provider in [facility] when lived over there. She previously [...] After her syncopal episode she had notified [facility] cardiology, and Dr. Marquez, who was on-call [...] PCP, or get a referral to an consumer studies professor to get her blood sugars better controlled, [...] thirst or hunger. Psychiatric/Behavioral: Bipolar/Schizophrenia. Tx'd by [employer] Vaccines: Current on flu vaccine: 2019 Current on pneumonia vaccine:PPSV 23 05/29/2013 Habits/Social : Denies history of smoking. Denies EtOH use. Denies recreational or illici t drug use. Exercises sporadically. Lives in [place] . Outpatient Medications Prior to Visit Medication Sig Dispense Refill albuterol 90 mcg/puff inhaler Inhale 2 puffs into the lungs every 4 (four) hours as nee ded for Wheezing. amitriptyline (ELAVIL) 150 MG tablet Take 150 mg by mouth nightly . ARIPiprazole (ABILIFY) 10 mg tablet Take 10 mg by mouth nightly. Blood Glucose Monitoring Suppl (Imsys VERIO FLEX SYSTEM) w/Device KIT by Does [...] discomfort, [facility] Resting EKG normal sinus rhythm, arrhythmias [...] nonspecific ST-T wave abnormality rate 82 bpm, KY 176 ms, QRS 80 ms, QTC 446 ms tracing personally reviewed by EK12/17/2019: Sinus tachycardia, nonspecific ST wave abnormalities, rate 105 bpm, KY 196 ms, QRS 74 ms, QTC 430 ms, tracing personally reviewed by me, and compared to EKG performed in February 2019, rate is less well-controlled EK01/10/2020 (metoprolol XL 50 mg twice daily. Normal sinus rhythm, new left bundle bran ch block Rate 74 bpm, KY 204 ms, QRS 138 ms, QTC 488 [...] bundle branch block. Ra te 105 bpm, KY 184 ms, QRS 144 ms, QTC 489 ms, tracing personally reviewed by me, and compar ed to EKG performed in December , rate is less well-controlled LABS Labs: 12/26/2018: ( [facility])CMP: Sodium 139, potassium 4.2, chloride 99, BUN 10, creatinine 0. 7, BNP 28. CBC: WBC 7.8, hemoglobin 14.3, hematocrit 42.7, platelets 214 Labs: 09/28/2019:( [facility]) CBC: WBC 7.8, hemoglobin 14.9, hematocrit 43.8, platelets 221. C MP: Sodium 132, potassium 4.2, chloride 95, AST 76, ALT 76, alk phos 134 Labs: 10/11/2019:( [facility]) CBC: WBC 6.7, RBC 4.97, hemoglobin 15.2, hematocrit 44.7, platel ets 200. CMP: Glucose 385, BUN 7, creatinine 0.62, GFR 97, sodium 131, potassium 4.1, chlor kelby 95, albumin 4.3, total bilirubin 0.6, AST 75, ALT 73, alk phos 144. Thyroid: TSH 4.27 Labs: 10/12/2020:( [facility]) CBC: WBC 7, RBC 4.93, hemoglobin 14.7, hematocrit 44.1, platele ts 186 normal UA CMP: Glucose 381, BUN 6, creatinine 0.63, GFR 95, sodium 133, potassium 3.8 , chloride 97, albumin 4.3, total bili 0.6, AST 62, ALT 75, alk phos 145 thyroid: TSH 3.07 Labs: 10/20/2019:( [facility]) CBC: WBC 7.1, RBC 4.93, hemoglobin 15.1, hematocrit 45.2, platel ets 204. CMP: Glucose 540, BUN 8, creatinine 0.81, GFR 71, sodium 131, potassium 4.1, chlor kelby 95, albumin 4.2, total bili 0.5, AST 54, ALT 63, alk phos 123, negative screen for all d rugs except tricyclics. Thyroid: TSH 3.39. Labs: 04/20/2020: ([facility]). CMP: Sodium 130, potassium 4.1, [...] admission and overnight teleme try stay at [facility] for syncopal episode with extremely elevated [...] I have referred her to the [facility] sleep disorders clinic for further evaluation and bernadine atment Her event monitor will be placed on May 29, and she assured me that she would wear it for the full 2 weeks, and I will follow-up with her about the results on June 26. Addendum: Cindy called today and notified my medical operations supervisor that she had thrown up al l [...] 1 of the few prov iders in [place] currently 1. Left bundle branch block 2. [...] continuity of care purp ose Preston [facility]UC[facility] Cardiology 04/25/2020 Laurie vivar in this [...] | | | | A-fib ([facility]) | 04/24/2021 | | | | | [...] | | | | A-fib ([facility]) | | | | | | Schizoaffective | | | | | | disorder, bipolar | | | | | | type ([facility]) Rapid | | | | | | [...]
--- OUTSIDE RECORDS SUMMARY | ~2020-08-08 | XMS | Encounter Summary ---
Demographics + + + | Address | [address] [facility] | | | [place] [address] | + + + | Home Phone [...] [place] | | | | | [address] | | + + + + + Care Team Providers + +------+ + | Care City Comptroller Name | Role | Phone | [...] + + | 10/04/ | Office | [facility] | Desiree Peterson DO | ROGERS on CPAP (Primary | | 2019 | Visit | CARDIOLOGY [place] | [address] | Dx); Morbid obesity | | | | [address] | [place], [place] | ([facility]); Benign | | | | [address] | [address] | essential HTN; | | | | [place], [place] | | Atrial fibrillation, | | | | [address] | | unspecified type | | | | [phone] | | (HCC) | +--------+---------+ + + [...] Peterson, DO - 10/04/2019 11:40 AM PST [facility] Cardiology Follow Up Note Reason [...] rtake in exercise. She recently got a Brainjuicer and has been walking him more regularly. [...] by mouth daily. Blood Glucose Monitoring Suppl (Optimal BlueIO FLEX SYSTEM) w/Device KIT by Does not ap ply route. budesonide-formoterol (SYMBICORT) 160-4.5 MCG/ACT inhaler Inhale 2 puffs into the lungs 2 (two) times daily. Calcium Carbonate Antacid 1000 MG tablet Take 1,000 mg by mouth 3 (three) times daily. Cholecalciferol (VITAMIN D3) 77049 units CAPS Take by mouth once a [...]
--- OUTSIDE RECORDS SUMMARY | ~2020-08-08 | XMS | Encounter Summary ---
Demographics + + + | Address | [address] [facility] [address] | | | [place] [address] | + + + | Home Phone [...] [place], [place] | | | | | [address] | | + + + + + Care Team Providers + +------+ + | Care Director Prison Name | Role | Phone | + +------+ + PCP | Unavailable | + +------+ + Encounter Details +--------+ + + + + | Date | Type | Department | Care Team | Description | +--------+ + + + + | 12/27/ | Hospital | [facility] | | | | 1997 - | Encounter | MED CTR GENERIC PSY | | | | | | CONV DEPT [address] | | | | 01/01/ | | [place], | | | | 1997 | | [place] [address] | | | | | | [phone] | | | +--------+ + + + [...]
--- OUTSIDE RECORDS SUMMARY | ~2020-08-08 | XMS | Encounter Summary ---
Demographics + + + | Address | [address] [facility] | | | [place] [address] | + + + | Home Phone [...] [place] | | | | | [address] | | + + + + + Care Team Providers + +------+ + | Care Family Medicine Resident Name | Role | Phone | + +------+ + PCP | Unavailable | + +------+ + Encounter Details +--------+ + + + + | Date | Type | Department | Care Team | Description | +--------+ + + + + | 06/30/ | Hospital | [facility] | | | | 2000 | Encounter | MED CTR EMERGENCY | | | | | | CENTER [address] | | | | | | [place] | | | | | | [address] | | | | | | [phone] | | | +--------+ + + + [...]
--- OUTSIDE RECORDS SUMMARY | ~2020-08-08 | XMS | Encounter Summary ---
Demographics + + + | Address | [address] [facility] | | | [place] [address] | + + + | Home Phone [...] [place] | | | | | [address] | | + + + + + Care Team Providers + +------+ + | Care Frit Mixer And Burner Name | Role | Phone | [...] + + | 09/10/ | Documentati | [facility] | Katharine Moncada, | Other (urgent | | 2019 | on | CARDIOLOGY [place] | Technologist | report) | | | | [address] | | | | | | [place] | | | | | | [address] | | | | | | [phone] | | | +--------+ + + + [...]
--- OUTSIDE RECORDS SUMMARY | ~2020-08-08 | XMS | Encounter Summary ---
Demographics + + + | Address | [address] [facility] | | | [place] [address] | + + + | Home Phone [...] [place] | | | | | [address] | | + + + + + Care Team Providers + +------+ + | Care Junior Automation Engineer Name | Role | Phone [...] [address] | [address] [place], [place] | Anxiety; Anemia; | | | | [place], [place] | [address] | Irregular heartbeat; | | | | [address] | | Depression; | | | | [phone] | | Migraine; | | | | [...]
--- OUTSIDE RECORDS SUMMARY | ~2020-08-08 | XMS | Encounter Summary ---
Demographics + + + | Address | [address] [facility] | | | [place] [address] | + + + | Home Phone [...] [place] | | | | | [address] | | + + + + + Care Team Providers + +------+ + | Care Clinical Marketing Manager Name | Role | Phone | + +------+ + | Natalee Andersen NP | PCP | | + +------+ + Encounter Details +--------+ + + + + | Date | Type | Department | Care Team | Description | +--------+ + + + + | 07/06/ | Hospital | [facility] | Latricia Feliciano | | | 2014 | Encounter | MED CTR ACUTE | D, PT [address] | | | | | PHYSICAL THERAPY | NEFTALIE [place]E | | | | | [address] | [address] | | | | | [place] [address] | | | | | | [phone] | | | +--------+ + + + [...] + + + +---------+ + + | [place]-3 Fatty | Take 1,000 mg by | [...]
--- OUTSIDE RECORDS SUMMARY | ~2020-08-08 | XMS | Encounter Summary ---
Demographics + + + | Address | [address] [facility] | | | [place] [address] | + + + | Home Phone [...] [place] | | | | | [address] | | + + + + + Care Team Providers + +------+ + | Care Teaching Music Lessons Name | Role | Phone | + [...] + + | 04/05/ | Telephone | [facility] | [facility], | Results | | 2012 | | GASTROENTEROLOGY | FORTUNATO Thomas [address] | | | | | [address] [place] | [address] | | | | | [address] [place] [place] | [place], [place] | | | | | [address] | [address] | | | | | [phone] | | | +--------+ + + + [...]
--- OUTSIDE RECORDS SUMMARY | ~2020-08-08 | XMS | Encounter Summary ---
Demographics + + + | Address | [address] [facility] | | | [place] [address] | + + + | Home Phone [...] [place] | | | | | [address] | | + + + + + Care Team Providers + +------+ + | Care Correctional Therapy Teacher Name | Role | Phone | [...] + + | 08/15/ | Documentati | [facility] | Katharine Moncada, | Other (urgent | | 2019 | on | CARDIOLOGY [place] | Technologist | report) | | | | [address] | | | | | | [place] | | | | | | [address] | | | | | | [phone] | | | +--------+ + + + [...]
--- OUTSIDE RECORDS SUMMARY | ~2020-08-08 | XMS | Encounter Summary ---
Demographics + + + | Address | [address] [facility] | | | [place] [address] | + + + | Home Phone [...] [place] | | | | | [address] | | + + + + + Care Team Providers + +------+ + | Care Activities Leader Name | Role | Phone | [...] + | 02/21/ | Refill | [facility] | Deon Gonzales | Medication Refill | | 2012 | | SLEEP DISORDER [address] | MD Laure[address] | | | | | [address] | [address] | | | | | [place] [address] | [place] [address] | | | | | [phone] | [phone] | | | | | | | [...]
--- OUTSIDE RECORDS SUMMARY | ~2020-08-08 | XMS | Encounter Summary ---
Demographics + + + | Address | [address] [facility] | | | [place] [address] | + + + | Home Phone [...] [place] | | | | | [address] | | + + + + + [...] | 2018 | | CARDIOLOGY [place] Abad, Union Organiser | anxious about urgent | | | | [address] | | reports. ) | | | | [place] | | | | | | [address] | | | | | | [phone] | | | +--------+ + + + [...] Miscellaneous Notes Telephone Encounter - Ashley Chávez, Union Organiser - 08/14/2019 9:16 AM Seferino foster called [...] for the time being. Patient stated understanding. BRODY:SLIP MIXER-AAMA. [facility] umented in this encounter Plan of Treatment Not on filedocumented as of this encounter Visit Diagnoses Not on filedocumented in this encounter"
--- OUTSIDE RECORDS SUMMARY | ~2020-08-08 | XMS | Encounter Summary ---
Demographics + + + | Address | [address] [facility] | | | [place] [address] | + + + | Home Phone [...] [place] | | | | | [address] | | + + + + + Care Team Providers + +------+ + | Care Saw Cleaner Name | Role | Phone | [...] [address] | [address] [place], [place] | | | | | [place], [place] | [address] | | | | | [address] | | | | | | [phone] | | | +--------+ + + + [...] + | MISCELLANEOUS LAB | | | [phone] | + +---------+ + + | MISCELANIOUS LAB | | | [phone] | + +---------+ + + documented in this encounter Visit Diagnoses + + | Diagnosis | + + | Back pain - Primary Backache, unspecified | + + documented in this encounter"
--- OUTSIDE RECORDS SUMMARY | ~2020-08-08 | XMS | Encounter Summary ---
Demographics + + + | Address | [address] [facility] | | | [place] [address] | + + + | Home Phone [...] [place] | | | | | [address] | | + + + + + Care Team Providers + +------+ + | Care Plating Tank Operator Apprentice Name | Role | Phone | + +------+ + | Natalee Andersen NP | PCP | | + +------+ + Encounter Details +--------+---------+ + + + | Date | Type | Department | Care Team | Description | +--------+---------+ + + + | 06/25/ | Surgery | [facility] | Frandy Teresa, | Canceled | | 2013 | | MED CTR OR INTRA OP | DO [address] | PROCEDURE NOT | | | | [address] | [address] [place], [place] | PERFORMED | | | | [place], [place] | [address] | | | | | [address] | | | | | | [phone] | | | +--------+---------+ + + + [...] + + + +---------+ + + | [place]-3 Fatty | Take 1,000 mg by | [...] this en counter H&P Notes ONBRUCE ABREU [facility] - 06/21/2014 12:00 AM PDT 14 [...] MD at 06/26/2014 8:05 AM PDTONBRUCE ABREU [facility] - 06/26 12:00 AM PDT NBRUCE ZAMORA N [facility] - 06/26/2014 12:00 AM PDT NBASE SCAN [facility] - 06/12/2014 12:00 AM PDTElectronically signed by Mariah Schulte at 06/12 7:30 AM PDTONBASE SCAN [facility] - 06/11/2014 12:00 AM PDT documented in this encounter Miscellaneous Notes Miscellaneous - ONBASE SCAN [facility] - 06/26/2014 12:00 AM PDT lan [...] stenosis, lumbar region, without neurogenic claudication ). Roofing Supervisor visit is in response to an electronic spiritual care consult request. Patient wa s resting comfortably in bed; she was attended by her mom and dad - both sate nearby and see med very attentive and supportive. Cindy is Adventist, attends [employer], and is strong in her rangel. She is excited about taking care of her back problem and fe els very secure in Dr. Teresa's care. She welcomed prayer, and expressed appreciation for th visit. Follow up with regular visits, emotional and spiritual support. iscellaneo us - ONBASE SCAN [facility] - 06/25/2014 12:00 AM PDTElectronically signed [...] | non- | FILTRATION | mL/min/1.73m2 | [facility] | | | Greek | RATE,ESTIMATED | | MEDICAL | | | | mL/min/1.44x4Ienw than | | CENTER - | | [...] | | | | | mg/dL | [facility] | | | | | | MEDICAL | | | | | | CENTER - | | | | | | LABORATORY | | + + + + + + | BUN/Creatin | 20.0 | | [facility] | | | ine Ratio | | | [facility] | | | | | [...] + | [facility] | [address] | [place] | [phone] | | [facility] | | [address] | | | - LABORATORY | | | | + + + + + | [facility] | [address] | [place] | | | [facility] | | [address], [facility] | [...] + | [facility] | [address] | [place], [place] | [phone] | | [facility] | | [address] | | | - LABORATORY | | | | + + + + + | [facility] | [address] | [place], [place] | | | [facility] | | [id number] | | | - LABORATORY [...] + | [facility] | [address] | [place] | [phone] | | [facility] | | [address] | | | - LABORATORY | | | | + + + + + | [facility] | [address] | [place] | | | [facility] | | [id number] | | | - LABORATORY [...] [address] | [place] | | | [facility] | | [address] | | | - BLOOD BANK | [...] + | [facility] | [address] | [place] | [phone] | | [facility] | | [address] | | | - LABORATORY | | | | + + + + + | [facility] | [address] | [place], [place] | | | [facility] | | [address] | | | - LABORATORY [...]
--- OUTSIDE RECORDS SUMMARY | ~2020-08-08 | XMS | Encounter Summary ---
Demographics + + + | Address | [address] [facility] | | | [place] [address] | + + + | Home Phone [...] [place], [place] | | | | | [address] | | + + + + + Care Team Providers + +------+ + | Care Sheep Farm Manager Name | Role | Phone | + +------+ + PCP | Unavailable | + +------+ + Encounter Details +--------+ + + + + | Date | Type | Department | Care Team | Description | +--------+ + + + + | 01/16/ | Hospital | [facility] | | | | 2002 | Encounter | MED CTR XRAY [address] | | | | | | [place] | | | | | | [place] [address] | | | | | | [phone] | | | +--------+ + + + [...]
--- OUTSIDE RECORDS SUMMARY | ~2020-08-08 | XMS | Encounter Summary ---
Demographics + + + | Address | [address] [facility] [address] [facility] [address] [facility] | | | [place] [address] | + + + | Home Phone [...] [place] | | | | | [address] | | + + + + + Care Team Providers + +------+ + | Care Flotation Tank Operator Name | Role | Phone [...] + + | 08/28/ | Telephone | [facility] | Ashley Chávez | Other (Patient has | | 2018 | | CARDIOLOGY [place] Abad, Paver Operator | questions about | | | | [address] | | monitor. ) | | | | [place], [place] | | | | | | [address] | | | | | | [phone] | | | +--------+ + + + [...] Miscellaneous Notes Telephone Encounter - Ashley Chávez, Paver Operator - 08/28/2019 8:32 AM Rory foster says [...] that if she chooses. Patient stated understanding. CLAYTONW:COMPUTER FORENSICS ANALYST-AAMA. sandro umented in this encounter Plan of Treatment Not on filedocumented as of this encounter Visit Diagnoses Not on filedocumented in this encounter"
--- OUTSIDE RECORDS SUMMARY | ~2020-08-08 | XMS | Encounter Summary ---
Demographics + + + | Address | [address] [facility] [address] [facility] | | | [place] [address] | + + + | Home Phone [...] [place] | | | | | [address] | | + + + + + Care Team Providers + +------+ + | Care Ward Secretary Name | Role | Phone | [...] + | 08/09/ | Documentati | [facility] | Katharine Moncada, | Other (end of study) | | 2019 | on | CARDIOLOGY [place] | Technologist | | | | | [address] | | | | | | [place], [place] | | | | | | [address] | | | | | | [phone] | | | +--------+ + + + [...] Technologist - 08/09/2019 11:59 PM PDT Cardiac Waste Disposal Leakage Tester Date of Event Monitor: 08/09/19 Referring Physician: [...]
--- OUTSIDE RECORDS SUMMARY | ~2020-08-08 | XMS | Encounter Summary ---
Demographics + + + | Address | [address] [facility] | | | [place] [address] | + + + | Home Phone [...] [place] | | | | | [address] | | + + + + + Care Team Providers + +------+ + | Care Manager Fund Name | Role | Phone | + [...] [place] | | | | | | [address] | | | | | | [phone] | | | +--------+ + + + [...]
--- OUTSIDE RECORDS SUMMARY | ~2020-08-08 | XMS | Encounter Summary ---
Demographics + + + | Address | [address] [facility] | | | [place] [address] | + + + | Home Phone [...] [place] | | | | | [address] | | + + + + + Care Team Providers + +------+ + | Care Field Sales Engineer Name | Role | Phone [...] [place] | | | | | | [address] | | | | | | [phone] | | | +--------+ + + + [...]
--- OUTSIDE RECORDS SUMMARY | ~2020-08-08 | XMS | Encounter Summary ---
Demographics + + + | Address | [address] [facility] | | | [place] [address] | + + + | Home Phone [...] [place] | | | | | [address] | | + + + + + [...] | | | | | fusion | [address] | | | | | | | [address] | | | | | | | Phone: | | | | | | | [phone] | | | | | | | Fax: | | | | | | | [phone] | | +--------+ + + + + + Reason for Visit + + + | Reason | Comments | + + + | Follow-up | 3 mo po | + + + Encounter Details +--------+---------+ + + + | Date | Type | Department | Care Team | Description | +--------+---------+ + + + | 09/27/ | Office | [facility] | Frandy Teresa, | Lumbar spondylosis | | 2013 | Visit | NEUROSURGERY [address] | DO [address] | (Primary Dx); S/P | | | | [address] | [address] [place], [place] | lumbar fusion | | | | [place], [place] | [address] | | | | | [address] | | | | | | [phone] | | | +--------+---------+ + + + [...] [facility], [address] [place], [place] [address] FAX: NEUROSURGERY FOLLOW-UP CHIEF COMPLAINT: Chief Complaint [...] DO; Location: [facility] MAIN OR CURRENT MEDICATIONS: Current Outpatient [...] Take 15 mg by mouth nightl y. [place]-3 Fatty Acids (FISH OIL CONCENTRATE) 1000 MG [...] ONBASE SCAN [facility] - 09/27/2014 12:00 AM PST [...]
--- OUTSIDE RECORDS SUMMARY | ~2020-08-08 | XMS | Encounter Summary ---
Demographics + + + | Address | [address] [facility] | | | [place] [address] | + + + | Home Phone [...] [place] | | | | | [address] | | + + + + + Care Team Providers + +------+ + | Care Computer Hardware Developer Name | Role | Phone | + +------+ + | aHri Samson DO | PCP | | + [...] + + | 02/06/ | Telephone | [facility] | BrittDora | Patient Concerns | | 2020 | | CARDIOLOGY [place] | CAROLINE [address] | | | | | [address] | [address] | | | | | [address] | [place] [address] | | | | | [place] | [phone] | | | | | [address] | | | | | | [phone] | | | +--------+ + + + [...]
--- OUTSIDE RECORDS SUMMARY | ~2020-08-08 | XMS | Encounter Summary ---
Demographics + + + | Address | [address] [facility] | | | [place] [address] | + + + | Home Phone [...] [place] | | | | | [address] | | + + + + + Care Team Providers + +------+ + | Care Naval Police Coxswain Name | Role | Phone | + [...] [address] | [address] [place], [place] | | | | | [place], [place] | [id number] | | | | | [address] | | | | | | [phone] | | | +--------+ + + + [...]
--- OUTSIDE RECORDS SUMMARY | ~2020-08-08 | XMS | Encounter Summary ---
Demographics + + + | Address | [address] [facility] | | | [place] [address] | + + + | Home Phone [...] [place] | | | | | [address] | | + + + + + Care Team Providers + +------+ + | Care Manager Program Name | Role | Phone | + +------+ + PCP | Unavailable | + +------+ + Encounter Details +--------+ + + + + | Date | Type | Department | Care Team | Description | +--------+ + + + + | 07/17/ | Hospital | [facility] | | | | 1997 | Encounter | MED CTR EMERGENCY | | | | | | CENTER [address] | | | | | | [place] | | | | | | [address] | | | | | | [phone] | | | +--------+ + + + [...]
--- OUTSIDE RECORDS SUMMARY | ~2020-08-08 | XMS | Encounter Summary ---
Demographics + + + | Address | [address] [facility] | | | [place] [address] | + + + | Home Phone [...] [place] | | | | | [address] | | + + + + + Care Team Providers + +------+ + | Care Oracle Hyperion Consultant Name | Role | Phone | [...] updated | | | | | [address] [facility], | address | | | | | [address] [place] | | | | | | [place] [address] | | | | | | [phone] | | | +--------+ + + + [...] stroke work up she had done at [place] was quite thorough and she did not [...]
--- OUTSIDE RECORDS SUMMARY | ~2020-08-08 | XMS | Encounter Summary ---
Demographics + + + | Address | [address] [facility] | | | [place] [address] | + + + | Home Phone [...] [place] | | | | | [address] | | + + + + + Care Team Providers + +------+ + | Care Pool Manager Name | Role | Phone | + +------+ + | Natalee Andersen NP | PCP | | + +------+ + Encounter Details +--------+ + + + + | Date | Type | Department | Care Team | Description | +--------+ + + + + | 09/27/ | Hospital | [facility] | Frandy Teresa, | Lumbar spondylosis; | | 2013 | Encounter | MED CTR XRAY [address] | DO [address] | S/P lumbar fusion | | | | [place] | [address] [place], [place] | | | | | [place] [address] | [address] | | | | | [phone] | | | +--------+ + + + [...] + + + +---------+ + + | Bow[place]-3 Fatty | Take 1,000 mg by | [...] + | MISCELLANEOUS LAB | | | [phone] | + +---------+ + + | MISCELANIOUS LAB | | | [phone] | + +---------+ + + documented in this encounter Visit Diagnoses + + | Diagnosis | + + | Lumbar spondylosis Lumbosacral spondylosis without myelopathy | + + | S/P lumbar fusion Arthrodesis status | + + documented in this encounter"
--- OUTSIDE RECORDS SUMMARY | ~2020-08-08 | XMS | Encounter Summary ---
Demographics + + + | Address | [address] [facility] | | | [place] [address] | + + + | Home Phone [...] [place] | | | | | [address] | | + + + + + Care Team Providers + +------+ + | Care Sr. Manager Name | Role | Phone | [...] + + | 09/19/ | Telephone | [facility] | Ashley Chávez | Other (Patient | | 2018 | | CARDIOLOGY GENESIS Abad, Welder Setter Electron Beam Machine | calling to be seen | | | | [address] | | mirella. ) | | | | [place], [place] | | | | | | [address] | | | | | | [phone] | | | +--------+ + + + [...] Miscellaneous Notes Telephone Encounter - Ashley Chávez Welder Setter Electron Beam Machine - 09/19/2019 10:41 AM PSTCall m cierra to patient to advise of Dr. Peterson's notes. Patient stated understanding. Patient asked why she couldn't be seen sooner, and I reminded her that we offered her a monae ner appointment that she turned down. Patient said thank you and hung up. BRODY:NABILAMA. el ephone Encounter - Ashley Chávez Welder Setter Electron Beam Machine - 09/19/2019 10:40 AM PST Dora De La Torre, CAROLINE Peterson DO; Ashley Chávez Welder Setter Electron Beam Machine So just an FYI: we offered her appointment today at 3 pm but she turned it down, and said she would keep scheduled appt. el ephone Encounter - Ashley Chávez Welder Setter Electron Beam Machine - 09/19/2019 10:38 AM PST----- Mess age [...] she needs to be seen by a frankfurter inspector. I have asked Lizeth to call her [...] help her pulse? Please advise. Thank you! umented in this encounter Plan of Treatment Not on filedocumented as of this encounter Visit Diagnoses Not on filedocumented in this encounter"
--- OUTSIDE RECORDS SUMMARY | ~2020-08-08 | XMS | Encounter Summary ---
Demographics + + + | Address | [address] [facility] | | | [place] [address] | + + + | Home Phone [...] [place], [place] | | | | | [address] | | + + + + + Care Team Providers + +------+ + | Care Unit Technician Name | Role | Phone | + +------+ + PCP | Unavailable | + +------+ + Encounter Details +--------+ + + + + | Date | Type | Department | Care Team | Description | +--------+ + + + + | 02/24/ | Hospital | [facility] | | | | 1997 - | Encounter | MED CTR GENERIC PSY | | | | | | CONV DEPT [address] | | | | 02/26/ | | [place], | | | | 1997 | | [place] [address] | | | | | | [phone] | | | +--------+ + + + [...]
--- OUTSIDE RECORDS SUMMARY | ~2020-08-08 | XMS | Encounter Summary ---
Demographics + + + | Address | [address] [facility] | | | [place] [address] | + + + | Home Phone [...] [place] | | | | | [address] | | + + + + + Care Team Providers + +------+ + | Care Aqueduct And Reservoir Keeper Name | Role | Phone | [...] + + | 02/13/ | Office | [facility] | Roxannmiguel ángelDora | History of atrial | | 2020 | Visit | CARDIOLOGY [place] | [address]INE [address] | fibrillation | | | | [address] | [address] | (Primary Dx); New | | | | [address] | [place] [address] | onset left bundle | | | | [place], [place] | [phone] | branch block (LBBB); | | | | [address] | | Benign essential | | | | [phone] | | HTN; History of | | [...] | | | | | | obesity) ([facility]) | +--------+---------+ + + + [...] 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 Her [id number] VASC score is 4 (stroke, HTN, gender) [...] She has previously seen Dr. Garland in [place], and different sleep provider in [facility] when lived over there. She previously [...] go back to volunteering at the local [employer], though this plan will need to be [...] thirst or hunger. Psychiatric/Behavioral: Bipolar/Schizophrenia. Tx'd by [employer] Vaccines: Current on flu vaccine: 2019 Current on pneumonia vaccine:PPSV 23 05/29/2013 Habits/Social : Denies history of smoking. Denies EtOH use. Denies recreational or illici t drug use. Exercises sporadically. Lives in [place] . Outpatient Medications Prior to Visit Medication [...] by mouth nightly. Blood Glucose Monitoring Suppl ([employer] VERIO FLEX SYSTEM) w/Device KIT by Does [...] is less well-controlled LABS Labs: 12/26/2018: ( [facility])CMP: Sodium 139, potassium 4.2, chloride 99, BUN 10, creatinine 0. 7, BNP 28. CBC: WBC 7.8, hemoglobin 14.3, hematocrit 42.7, platelets 214 Labs: 09/28/2019:( [facility]) CBC: WBC 7.8, hemoglobin 14.9, hematocrit 43.8, platelets 221. C MP: Sodium 132, potassium 4.2, chloride 95, AST 76, ALT 76, alk phos 134 Labs: 10/11/2019:( [facility]) CBC: WBC 6.7, RBC 4.97, hemoglobin 15.2, hematocrit 44.7, platel ets 200. CMP: Glucose 385, BUN 7, creatinine 0.62, GFR 97, sodium 131, potassium 4.1, chlor kelby 95, albumin 4.3, total bilirubin 0.6, AST 75, ALT 73, alk phos 144. Thyroid: TSH 4.27 Labs: 10/12/2020:( [facility]) CBC: WBC 7, RBC 4.93, hemoglobin 14.7, hematocrit 44.1, platele ts 186 normal UA CMP: Glucose 381, BUN 6, creatinine 0.63, GFR 95, sodium 133, potassium 3.8 , chloride 97, albumin 4.3, total bili 0.6, AST 62, ALT 75, alk phos 145 thyroid: TSH 3.07 Labs: 10/20/2019:( [facility]) CBC: WBC 7.1, RBC 4.93, [...] reviewed her EKG and Echo with her maintenance worker municipal Dr. Peterson, who was in clin ic [...] Obesity, Class III, BMI 40-49.9 (morbid obesity) ([facility]) Orders Placed This Encounter Procedures [...] continuity of care purp ose Preston [facility] Cardiology 02/15/2020 docume nted in this [...] | | | | | DORA VELAZQUEZ ([id number]) on | | | | | | [...]
--- OUTSIDE RECORDS SUMMARY | ~2020-08-08 | XMS | Encounter Summary ---
Demographics + + + | Address | [address] [facility] | | | [place] [address] | + + + | Home Phone [...] [place] | | | | | [address] | | + + + + + Care Team Providers + +------+ + | Care Wool Cleaner Name | Role | Phone | [...] [place] | | | | | | [address] | | | | | | [phone] | | | +--------+ + + + [...]
--- OUTSIDE RECORDS SUMMARY | ~2020-08-08 | XMS | Clinical Summary ---
Demographics + + + | Address | [address] [facility] | | | [place] [address] | + + + | Home Phone [...] [place] | | | | | [address] | | + + + + + Care Team Providers + +------+ + | Care Unishear Operator Name | Role | Phone | + +------+ + PCP | Unavailable | + +------+ + Source Comments EDWARD is fully live on both [facility] Ambulatory and [facility] InPatient.[facility] Allergies Not on File Medications Not [...] + +--------+ | MEDICARE | MEDICA | [id number] | 02/22/20 | [phone] | [address] | Medica | | | RE A & | | 15-Pre | 1 | [address] | re | | | B | | sent | | [place] | | | | | | | | [address] | | + +--------+ +--------+ + +--------+ + +--------+ +--------+ + + | Guarantor Name | Accoun | Relation to | Date | Phone | Billing Address | | | t Type | Patient | of | | | | | | | | | | + +--------+ +--------+ + + | CINDY ARNDT | Person | Self | [birth year] | [address] | | al/Fam | | 1955 | [phone] | [address] [place] | | | devonte | | | 5 (Home) | [address] | + +--------+ +--------+ + +"
--- OUTSIDE RECORDS SUMMARY | ~2020-08-08 | XMS | Encounter Summary ---
Demographics + + + | Address | [address] [facility] | | | [place] [address] | + + + | Home Phone [...] [place] | | | | | [address] | | + + + + + Care Team Providers + +------+ + | Care [employer] Officer Name | Role | Phone | [...] + + | 09/10/ | Documentati | [facility] | Katharine Moncada, | Other (urgent | | 2019 | on | CARDIOLOGY GENESIS | Technologist | report) | | | | [address] | | | | | | [place] | | | | | | [address] | | | | | | [phone] | | | +--------+ + + + [...]
--- OUTSIDE RECORDS SUMMARY | ~2020-08-08 | XMS | Encounter Summary ---
Demographics + + + | Address | [address] [facility] | | | [place] [address] | + + + | Home Phone [...] [place] | | | | | [address] | | + + + + + Care Team Providers + +------+ + | Care College Basketball Coach Name | Role | Phone | [...] | | | | | | | [address] | | | | | | | Phone: | | | | | | | [phone] | | | | | | | Fax: | | | | | | | [phone] | | +--------+--------+ + + + + Encounter Details +--------+---------+ + + + | Date | Type | Department | Care Team | Description | +--------+---------+ + + + | 02/27/ | Office | [facility] | Baudilio Newman | Neuropathy (Primary | | 2015 | Visit | NEUROLOGY LAURIE | MD Pollo Need updated | Dx); Sleep apnea; | | | | [address] [facility], | address | Stroke (HCC); | | | | [address] [place] | | Thyroid disease | | | | [place] [address] | | | | | | [phone] | | | +--------+---------+ + + + [...] supply of blood, brain tissue quickly dies. 9769-17[address] [employer]. [address] [place] [address]. All righ ts reserved. This information is not intended as a substitute for professional medical care. Always follow your healthcare professional's instructions. documented in this encounter Progress Notes Baudilio Newman MD - 02/27/2015 10:31 AM PDTFormatting of this note might be differen t from the original. Baudilio Newman MD [address] [place] [address], [address] [place] [address] Neurology Outpatient New Patient Note Referring Provider: Dr Wallace MD No address on file Chief Complaint: Chief Complaint Patient presents with New Patient CVA History of Present Illness: Cindy rAndt is a 59 y.o. female with a pertinent history of schizoaffective disorde r, Bipolar, lower back pain s/p L5-S1 TLIF, DM-II, HTN, HL, morbid obesity, ROGERS (on CPAP) an d migraines presenting for further assessment and management of recent stroke like symptoms. Ms. [place] is accompanied by a friend who provides additional clinical history. Notes from her recent hospitalization at [facility] were reviewed in detail. Ms. Arndt started feeling off in the evening of 02/01. She felt dizzy and laid down to slee p. Upon waking, she felt her right side was numb. She tried to get up to go to the bathroom and realized she was weak as well on the right. She was taken to [facility] where she was diagnosed with a TIA/stroke [...] systol ically. She was reevaluated in the [facility] ED for one such event and [...] hospitalization . This specimen was characterized at [facility], but the report is not currently available for [facility][1]. Unfortunately, Ms. Arndt notes that her right [...] Laterality: N/A; Surgeon: Frandy castellanos DO; Location: [facility] MAIN OR Current Medications: Outpatient Medications [...] tablet Take 15 mg by mouth nightly. [place]-3 Fatty Acids (FISH OIL CONCENTRATE) 1000 MG [...] BMI 46.04 kg /m2 Neck Circumference: 14" [place] Sleepiness Scale: 2 General: well developed and [...] Romberg test negative Radiographic Review: CTA from [place] reviewed on [facility]. No significant stenoses seen [...] No results found for this basename: hba1c, uxc4kqg, ldl, ldldirect, ldlext, dldlex Lab Results Component [...]
--- OUTSIDE RECORDS SUMMARY | ~2020-08-08 | XMS | Encounter Summary ---
Demographics + + + | Address | [address] [facility] | | | [place] [address] | + + + | Home Phone [...] [place] | | | | | [address] | | + + + + + Care Team Providers + +------+ + | Care Lubrication Equipment Servicer Name | Role | Phone | + +------+ + | Hari Smason DO | PCP | | + +------+ + Reason for Visit +--------+ + | Reason | Comments | +--------+ + | Other | 14 day Bardy | +--------+ + Encounter Details +--------+ + + + + | Date | Type | Department | Care Team | Description | +--------+ + + + + | 05/29/ | Procedure | [facility] | Dora De La Torre | Left bundle branch | | 2020 | visit | CARDIOLOGY [place] | CAROLINE [address] | block; Paroxysmal | | | | [address] | [address] | A-fib ([facility]); | | | | [address] | [place] [address] | Syncope, unspecified | | | | [place], [place] | [phone] | syncope type; Rapid | | | | [address] | | palpitations | | | | [phone] | | | +--------+ + + + [...] information discussed. Instructions given and understood. 12:08pm [id number] signed by Cindy Nicholas CMA at 05/29/2020 [...]
--- OUTSIDE RECORDS SUMMARY | ~2020-08-08 | XMS | Encounter Summary ---
Demographics + + + | Address | [address] [facility] | | | [place] [address] | + + + | Home Phone [...] [place] | | | | | [address] | | + + + + + [...] + + | 06/26/ | Hospital | [facility] | Heather Cordero PT | | | 2013 | Encounter | MED CTR ACUTE | [address] | | | | | PHYSICAL THERAPY | [place] | | | | | [address] [place] | [address] | | | | | [place] [address] | | | | | | [phone] | | | +--------+ + + + [...] + + + +---------+ + + | [place]-3 Fatty | Take 1,000 mg by | [...]
--- OUTSIDE RECORDS SUMMARY | ~2020-08-08 | XMS | Encounter Summary ---
Demographics + + + | Address | [address] [facility] | | | [place] [address] | + + + | Home Phone [...] [place] | | | | | [address] | | + + + + + Care Team Providers + +------+ + | Care Manager Pharmaceutical Name | Role | Phone | + +------+ + PCP | Unavailable | + +------+ + Encounter Details +--------+ + + + + | Date | Type | Department | Care Team | Description | +--------+ + + + + | 01/26/ | Hospital | [facility] | [place], | | | 2011 | Encounter | MED CTR XRAY [address] | MD [address] | | | | | [place] | [place] | | | | | [place] [address] | [address] | | | | | [phone] | | | +--------+ + + + [...] Performed At | + + + | [facility] Diagnostic Imaging Department | [place] | | [address] [facility] | [facility] | | BILATERAL KNEES, THREE [...] Transcribed | | | Date/Time: 01/27/2012 17:18 Fire Extinguisher Repairer: REBECCA | | | <Electronically Signed by Willie Perry MD> 01/27/12 [id number] | | + + + + + | Procedure Note | + + | Juan, Rad Conversion - 11/30/2013 5:03 PM [facility] | | Diagnostic Imaging Department [address] [place] [address] | | BILATERAL KNEES, THREE VIEWS: 01/27/2012 [...] 17:12 | |Transcribed Date/Time: 01/27/2012 17:18 | |Fire Extinguisher Repairer: | |<Electronically Signed by Willie Perry MD> [...]
--- OUTSIDE RECORDS SUMMARY | ~2020-08-08 | XMS | Encounter Summary ---
Demographics + + + | Address | [address] [facility] | | | [place] [address] | + + + | Home Phone [...] [place], [place] | | | | | [address] | | + + + + + Care Team Providers + +------+ + | Care Hand Candy Cutter Name | Role | Phone | + +------+ + PCP | Unavailable | + +------+ + Encounter Details +--------+ + + + + | Date | Type | Department | Care Team | Description | +--------+ + + + + | 06/07/ | Hospital | [facility] | | | | 1991 - | Encounter | MED CTR GENERIC OP | | | | | | CONV DEPT [address] | | | | 10/07/ | | [place], | | | | 1991 | | [place] [address] | | | | | | [phone] | | | +--------+ + + + [...]
--- OUTSIDE RECORDS SUMMARY | ~2020-08-08 | XMS | Encounter Summary ---
Demographics + + + | Address | [address] [facility] | | | [place] [address] | + + + | Home Phone [...] [place] | | | | | [address] | | + + + + + Care Team Providers + +------+ + | Care Evp Of Products & Co Founder Name | Role | Phone | + [...] | Frandy Simons DO | [address] | | | | | of skin | [address] | [place], | | | | | sensation | [address] | [place] | | | | | Arthrodesis | [place], [place] | [address] | | | | | status Left | [address] | Phone: | | | | | leg | Phone: | [phone] | | | | | weakness | [phone] | Fax: | | | | | Procedures | Fax: | [phone] | | | | | MRI Lumbar | [phone] | | | | | | Spine [...] | Frandy A, DO | [address] | | | | | of skin | [address] | [place], | | | | | sensation | [address] | [place] | | | | | Arthrodesis | [place] | [address] | | | | | status Left | [address] | Phone: | | | | | leg | Phone: | [phone] | | | | | weakness | [phone] | Fax: | | | | | Procedures | Fax: | [phone] | | | | | MRI Lumbar | [phone] | | | | | | Spine wo | | | | | | | Contrast | | | +--------+--------+ + + + + Encounter Details +--------+ + + + + | Date | Type | Department | Care Team | Description | +--------+ + + + + | 08/19/ | Hospital | [facility] | Frandy Teresa, | Status post lumbar | | 2013 | Encounter | MED CTR MRI [address] | DO [address] | spinal fusion; Left | | | | [employer] [place], | [address] [place] | leg numbness; Left | | | | [place] [address] | [address] | leg weakness | | | | [phone] | | | +--------+ + + + [...] + + +---------+ + + | [place]-3 Fatty | Take 1,000 mg by | [...] of this encounter Miscellaneous Notes Miscellaneous - [facility] - 09/06/2014 12:00 AM PST documented [...] the round structure with high T1 and [id number] in the right L3 vertebral | | [...] + | MISCELLANEOUS LAB | | | [phone] | + +---------+ + + | MISCELANIOUS LAB | | | [phone] | + +---------+ + + documented in [...]
--- OUTSIDE RECORDS SUMMARY | ~2020-08-08 | XMS | Encounter Summary ---
Demographics + + + | Address | [address] [facility] | | | [place] [address] | + + + | Home Phone [...] [place] | | | | | [address] | | + + + + + Care Team Providers + +------+ + | Care Container Washer Name | Role | Phone | [...] + | 07/01/ | Telephone | [facility] | Frandy Teresa, | Other (Surgery ) | | 2013 | | NEUROSURGERY [address] | DO [address] | | | | | [address] | [address] [place], [place] | | | | | [place], [place] | [id number] | | | | | [address] | | | | | | [phone] | | | +--------+ + + + [...]
--- OUTSIDE RECORDS SUMMARY | ~2020-08-08 | XMS | Encounter Summary ---
Demographics + + + | Address | [address] [facility] | | | [place] [address] | + + + | Home Phone [...] [place], [place] | | | | | [address] | | + + + + + Care Team Providers + +------+ + | Care Director Global Medical Affairs Name | Role | Phone | + +------+ + PCP | Unavailable | + +------+ + Encounter Details +--------+ + + + + | Date | Type | Department | Care Team | Description | +--------+ + + + + | 06/23/ | Hospital | [facility] | | | | 1999 | Encounter | MED CTR GENERIC OP | | | | | | CONV DEPT [address] | | | | | | [place], | | | | | | [place] [address] | | | | | | [phone] | | | +--------+ + + + [...]
--- OUTSIDE RECORDS SUMMARY | ~2020-08-08 | XMS | Encounter Summary ---
Demographics + + + | Address | [address] [facility] | | | [place] [address] | + + + | Home Phone [...] [place] | | | | | [address] | | + + + + + [...] [place] | | | | | | [address] | | | | | | [phone] | | | +--------+ + + + [...]
--- OUTSIDE RECORDS SUMMARY | ~2020-08-08 | XMS | Encounter Summary ---
Demographics + + + | Address | [address] [facility] | | | [place] [address] | + + + | Home Phone [...] [place] | | | | | [address] | | + + + + + [...] updated | | | | | [address] [facility], | address | | | | | [address] [place] | | | | | | [place] [address] | | | | | | [phone] | | | +--------+ + + + [...]
--- OUTSIDE RECORDS SUMMARY | ~2020-08-08 | XMS | Encounter Summary ---
Demographics + + + | Address | [address] [facility] | | | [place] [address] | + + + | Home Phone [...] [place] | | | | | [address] | | + + + + + Care Team Providers + +------+ + | Care Coater Slate Name | Role | Phone | + +------+ + | Adriano Patrick MD | PCP | | + +------+ + Encounter Details +--------+ + + + + | Date | Type | Department | Care Team | Description | +--------+ + + + + | 05/11/ | Documentati | [facility] | Russell Alfaro PA | | | 2016 | on | SLEEP DISORDER [address] | [address] | | | | | [address] [place] | [place], [place] | | | | | [place] [address] | [address] | | | | | [phone] | | | +--------+ + + + [...]
--- OUTSIDE RECORDS SUMMARY | ~2020-08-08 | XMS | Encounter Summary ---
Demographics + + + | Address | [address] [address] [facility] | | | [place] [address] | + + + | Home Phone [...] [place] | | | | | [address] | | + + + + + Care Team Providers + +------+ + | Care News Commentator Name | Role | Phone | [...] + + | 08/15/ | Documentati | [facility] | Katharine Moncada, | Other (urgent | | 2019 | on | CARDIOLOGY GENESIS | Technologist | report) | | | | [address] | | | | | | [place] | | | | | | [address] | | | | | | [phone] | | | +--------+ + + + [...]
--- OUTSIDE RECORDS SUMMARY | ~2020-08-08 | XMS | Encounter Summary ---
Demographics + + + | Address | [address] [facility] | | | [place] [address] | + + + | Home Phone [...] [place] | | | | | [address] | | + + + + + Care Team Providers + +------+ + | Care Supervisor Sawmill Name | Role | Phone | + [...] + + | 04/30/ | Office | [facility] | Russell Alfaro PA | ROGERS on CPAP (Primary | | 2015 | Visit | SLEEP DISORDER 401 | [address] | Dx) | | | | [address] [place] | [place] | | | | | [place] [address] | [address] | | | | | [phone] | | | +--------+---------+ + + + [...] Insomnia Severity Index Insomnia Severity Index 13 Saint Bernard Sleepiness Scale Sitting and reading 3 Watching [...] appro priate paperwork. Thirty minutes were spent [id number], with the majority of time spent i [...]
--- OUTSIDE RECORDS SUMMARY | ~2020-08-08 | XMS | Encounter Summary ---
Demographics + + + | Address | [address] [facility] | | | [place] [address] | + + + | Home Phone [...] [place] | | | | | [address] | | + + + + + Care Team Providers + +------+ + | Care Lawn And Tree Service Spray Supervisor Name | Role | Phone | + +------+ + PCP | Unavailable | + +------+ + Encounter Details +--------+ + + + + | Date | Type | Department | Care Team | Description | +--------+ + + + + | 10/29/ | Hospital | [facility] | | | | 1994 | Encounter | MED CTR LABORATORY | | | | | | [address] | | | | | | [place] | | | | | | [address] | | | | | | [phone] | | | +--------+ + + + [...]
--- OUTSIDE RECORDS SUMMARY | ~2020-08-08 | XMS | Encounter Summary ---
Demographics + + + | Address | [address] [address] [facility] | | | [place] [address] | + + + | Home Phone [...] Author | [facility] | | [...] [place] | | | | | [address] | | + + + + + Care Team Providers + +------+ + | Care Cash Control Specialist Name | Role | Phone | + +------+ + | Natalee Andersen NP | PCP | | + +------+ + Encounter Details +--------+ + + + + | Date | Type | Department | Care Team | Description | +--------+ + + + + | 06/25/ | Hospital | [facility] | Frandy Teresa, | Acquired | | 2014 | Encounter | MED CTR XRAY [address] | DO [address] | spondylolisthesis | | | | [place] | [address] [place], [place] | | | | | [place] [address] | [address] | | | | | [phone] | | | +--------+ + + + [...] + + +---------+ + + | [place]-3 Fatty | Take 1,000 mg by | [...]
--- OUTSIDE RECORDS SUMMARY | ~2020-08-08 | XMS | Encounter Summary ---
Demographics + + + | Address | [address] [facility] | | | [place] [address] | + + + | Home Phone [...] [place] | | | | | [address] | | + + + + + Care Team Providers + +------+ + | Care Pipe Cleaner Name | Role | Phone | [...] | 07/19/ | Telephone | [facility] | Frandy Teresa, | Appointment | | 2013 | | NEUROSURGERY [address] | DO [address] | | | | | [address] | [address] [place], [place] | | | | | [place], [place] | [id number] | | | | | [address] | | | | | | [phone] | | | +--------+ + + + [...] Spivey - 07/22/2014 8:09 AM PDTSusalesly from [facility] called back this morning to isamar mejía that she spoke with the patient again regarding this appointment and the patient would be ok with rescheduling to a time the following week. She just didn't want to make the trip down here right after she got back home to [place]. Heather can be reached at [phone] ectronically signed by Tiffani Humphrey at 07/22/2014 8:11 AM PDTTelephone Encounter - Lashawn Metzger - 07/19/2014 12:56 PM PDTSusan from [facility] called to confirm Cindy' [...]
--- OUTSIDE RECORDS SUMMARY | ~2020-08-08 | XMS | Encounter Summary ---
Demographics + + + | Address | [address] [facility] | | | [place] [address] | + + + | Home Phone [...] [place] | | | | | [address] | | + + + + + Care Team Providers + +------+ + | Care Nuclear Engineering Technician Name | Role | Phone | + +------+ + PCP | Unavailable | + +------+ + Encounter Details +--------+ + + + + | Date | Type | Department | Care Team | Description | +--------+ + + + + | 12/27/ | Hospital | [facility] | | | | 1995 | Encounter | MED CTR LABORATORY | | | | | | [address] | | | | | | [place] | | | | | | [address] | | | | | | [phone] | | | +--------+ + + + [...]
--- OUTSIDE RECORDS SUMMARY | ~2020-08-08 | XMS | Encounter Summary ---
Demographics + + + | Address | [address] [facility] | | | [place] [address] | + + + | Home Phone [...] [place] | | | | | [address] | | + + + + + Care Team Providers + +------+ + | Care Director Marketing Analytics Name | Role | Phone | [...] | Services | ogy | Epigastric | [facility], | Tyrese Shelley MD | | | Required | | abdominal | [place], | [address], | | | | | pain GERD | ENVIRONMENTAL SCIENCE INSTRUCTOR [address] | [address] | | | | | (gastroesoph | [address] | [place], | | | | | ageal reflux | [address] | [place] [id number] | | | | | disease) | [place], | Phone: | | | | | Fatty liver | [place] [address] | [phone] | | | | | DM | Phone: | Fax: | | | | | (diabetes | [phone] | [phone] | | | | | mellitus) | Fax: | | | | | | (HCC) | [phone] | | +--------+ + + + + [...] Office | [facility] | [facility], | Epigastric abdominal | | 2012 | Visit | GASTROENTEROLOGY | [address] | pain (Primary Dx); | | | | [address] | [address] | GERD | | | | [address] [place], [place] | [place] | (gastroesophageal | | | | [address] | [address] | reflux disease); | | | | [phone] | | Fatty liver; DM | | [...] years ago by Dr. Saravanan Tsai, in [facility]. Colonoscopy was done 05/[address] Hamlin in [facility]. Allergies Allergen Reactions Demerol Duloxetine Erythromycin [...] encounter Miscellaneous Notes Miscellaneous - [facility] - 03/06/2013 12:00 AM PDT iscellaneous - [facility] - 03/06/2013 12:00 AM PDTEle ctronically signed by Mariah Schulte at 04/09/2013 9:48 AM PDTMiscellaneous - [facility] T - 03/06/2013 12:00 AM [...]
--- OUTSIDE RECORDS SUMMARY | ~2020-08-08 | XMS | Encounter Summary ---
Demographics + + + | Address | [address] [facility] | | | [place] [address] | + + + | Home Phone [...] [place] | | | | | [address] | | + + + + + Care Team Providers + +------+ + | Care Health Spa Manager Name | Role | Phone | [...] + | 06/20/ | Telephone | [facility] | Frandy Teresa, | Other (surgery | | 2013 | | NEUROSURGERY [address] | DO [address] | reminder ) | | | | [address] [facility] | [address] [place], [place] | | | | | [place], [place] | [id number] | | | | | [address] | | | | | | [phone] | | | +--------+ + + + [...]
--- OUTSIDE RECORDS SUMMARY | ~2020-08-08 | XMS | Encounter Summary ---
Demographics + + + | Address | [address] [facility] | | | [place] [address] | + + + | Home Phone [...] [place] | | | | | [address] | | + + + + + Care Team Providers + +------+ + | Care Financial Systems Administrator Name | Role | Phone [...] + | 01/02/ | Telephone | [facility] | Frandy Teresa, | Other (6m x-ray ) | | 2014 | | NEUROSURGERY [address] | DO [address] | | | | | [address] | [address] [place], [place] | | | | | [place], [place] | [phone] | | | | | [address] | | | | | | [phone] | | | +--------+ + + + [...] for review. The order was faxed to [facility] today. She will let us know when this has been completed. SHAYNE ARAGON documented in this encounter Plan of Treatment Not on filedocumented as of this encounter Visit Diagnoses Not on filedocumented in this encounter"
--- OUTSIDE RECORDS SUMMARY | ~2020-08-08 | XMS | Encounter Summary ---
Demographics + + + | Address | [address] [address] [facility] | | | [place] [address] | + + + | Home Phone [...] [place] | | | | | [address] | | + + + + + Care Team Providers + +------+ + | Care Real Property Evaluator Name | Role | Phone | [...] [facility] | Ashley Chávez | Talia (Patient | | 2018 | | CARDIOLOGY GENESIS Abad, Typesetters Printer | called to cancel her | | | | [address] | | appointment) | | | | [place] | | | | | | [address] | | | | | | [phone] | | | +--------+ + + + [...] Miscellaneous Notes Telephone Encounter - Ashley Chávez, Typesetters Printer - 06/28/2019 2:12 PM Seferino foster said [...]
--- OUTSIDE RECORDS SUMMARY | ~2020-08-08 | XMS | Encounter Summary ---
Demographics + + + | Address | [address] [facility] | | | [place] [address] | + + + | Home Phone [...] [place] | | | | | [address] | | + + + + + Care Team Providers + +------+ + | Care Electronic Warfare Linguist Name | Role | Phone | [...] [place] | | | | | | [address] | | | | | | [phone] | | | +--------+ + + + [...]
--- OUTSIDE RECORDS SUMMARY | ~2020-08-08 | XMS | Encounter Summary ---
Demographics + + + | Address | [address] [facility] | | | [place] [address] | + + + | Home Phone [...] [place] | | | | | [address] | | + + + + + Care Team Providers + +------+ + | Care Assembler Clip On Sunglasses Name | Role | Phone | + [...] | | | | | | [place] [address] | | | | | | [phone] | | | | | | | [...] | | | | | | [facility] | | | | | | [...] [facility] | | | | | | [facility] | | | | | | Laboratory, Leslie, | | | | | | Hardy, delivered | | | | | | [...] by | | | | | | cfocrdnpFqg-Sdi-J: | | | | | | Increased [...] istryMHC-1: | | | | | | KaqgfhosEQ06 stain | | | | | | [...] | + + + + + | [facility] | [address] | [place] [address] | | | PATHOLOGY | [address] | | | + + + + + documented in this encounter Visit Diagnoses Not on filedocumented in this encounter
--- OUTSIDE RECORDS SUMMARY | ~2020-08-08 | XMS | Encounter Summary ---
Demographics + + + | Address | [address] [facility] | | | [place] [address] | + + + | Home Phone [...] [place] | | | | | [address] | | + + + + + Care Team Providers + +------+ + | Care Superintendent Radio Communications Name | Role | Phone | [...] | | [address] [place] | [place] [address] | | | | | [place] [address] | | | | | | [phone] | | | +--------+ + + + [...]
--- OUTSIDE RECORDS SUMMARY | ~2020-08-08 | XMS | Encounter Summary ---
Demographics + + + | Address | [address] [facility] | | | [place] [address] | + + + | Home Phone [...] [place] | | | | | [address] | | + + + + + [...] + + | 06/05/ | Telephone | [facility] | Dora De La Torre | Cardiology | | 2020 | | CARDIOLOGY [place] | CAROLINE Mendez [address] | Appointment | | | | [address] | | | | | [address] | [place] [address] | | | | | [place] | [phone] | | | | | [address] | | | | | | [phone] | | | +--------+ + + + [...] encounter Miscellaneous Notes Telephone Encounter - BrittDora, ALLERGY NURSE - 06/05/2020 1:08 PM MELANIE Cindy called kristin garcia and notified my medical anthropology director that she had thrown up all over [...] 1 of the few prov iders in [place] currently. Dr. Richter is in agreement with this plan, and we also communicated it to Cindy, so she knows that Dr. Richter will continue to monitor her on twice weekly basis documented in this encounter Plan of Treatment Not on filedocumented as of this encounter Visit Diagnoses Not on filedocumented in this encounter"
--- OUTSIDE RECORDS SUMMARY | ~2020-08-08 | XMS | Encounter Summary ---
Demographics + + + | Address | [address] [facility] | | | [place] [address] | + + + | Home Phone [...] [place] | | | | | [address] | | + + + + + [...] | Specialty | Physical | Diagnoses | Biri, | | | | Services | Therapy | Lumbar | Frandy Simons DO | | | | Required | | spondylosis | [address] | | | | | | S/P lumbar | [address] | | | | | | fusion | [place] | | | | | | | [address] | | | | | | | Phone: | | | | | | | [phone] | | | | | | | Fax: | | | | | | | [phone] | | +--------+ + + + + + Reason for Visit + + + | Reason | Comments | + + + | Follow-up | 4 Week PO | + + + Encounter Details +--------+---------+ + + + | Date | Type | Department | Care Team | Description | +--------+---------+ + + + | 07/25/ | Office | [facility] | Frandy Teresa, | Lumbar spondylosis | | 2013 | Visit | NEUROSURGERY [address] | DO [address] | (Primary Dx); S/P | | | | [address] | [address] [place], [place] | lumbar fusion | | | | [place], [place] | [address] | | | | | [address] | | | | | | [phone] | | | +--------+---------+ + + + [...] Frandy Teresa DO [address] [facility] [address] [place] [address] FAX: NEUROSURGERY SURGICAL FOLLOW-UP CHIEF COMPLAINT: Chief [...] + | MISCELLANEOUS LAB | | | [phone] | + +---------+ + + | MISCELANIOUS LAB | | | [phone] | + +---------+ + + documented in this encounter Visit Diagnoses + + | Diagnosis | + + | Lumbar spondylosis - Primary Lumbosacral spondylosis without myelopathy | + + | S/P lumbar fusion Arthrodesis status | + + documented in this encounter
--- OUTSIDE RECORDS SUMMARY | ~2020-08-08 | XMS | Encounter Summary ---
Demographics + + + | Address | [address] [facility] | | | [place] [address] | + + + | Home Phone [...] Author + + + | Author | [facility] | + + + | Organization | [facility] | + + + | Address | Unknown | + + + | Phone | Unavailable | + + + Support + + + + + | Name | Relationship | Address | Phone | + + + + + | Kelsy Bautista | ECON | [address] | | | | | [place] | | | | | [address] | | + + + + + Care Team Providers + +------+ + | Care Final Finisher Forging Dies Name | Role | Phone | + [...] | | | | | | [place], | | | | | | [place] [address] | | | | | | [phone] | | | +--------+ + + + [...] | | + +---------+ + + | [facility] DEPARTMENT OF | | | | | RADIOLOGY | | | | + +---------+ + + documented in this encounter Visit Diagnoses Not on filedocumented in this encounter"
--- OUTSIDE RECORDS SUMMARY | ~2020-08-08 | XMS | Encounter Summary ---
Demographics + + + | Address | [address] [address] [facility] | | | [place] [address] | + + + | Home Phone [...] [place] | | | | | [address] | | + + + + + [...] AVE | | | | | [address] [facility] | [address] [place], [place] | | | | | [place], [place] | [phone] | | | | | [address] | | | | | | [phone] | | | +--------+--------+ + + + [...] will come today. rx refill up at [facility] desk elephone Encou nter - [...]
--- OUTSIDE RECORDS SUMMARY | ~2020-08-08 | XMS | Encounter Summary ---
Demographics + + + | Address | [address] [facility] | | | [place] [address] | + + + | Home Phone [...] [place] | | | | | [address] | | + + + + + Care Team Providers + +------+ + | Care Assemblies And Installations Inspector Name | Role | Phone | [...] + + | 03/07/ | Telephone | [facility] | Katharine Cardona PA-C | Results | | 2014 | | [facility]ICINE [place] | [address] [facility] | | | | | [address] | [place] [address] | | | | | [place], [place] | [phone] | | | | | [address] | | | | | | [phone] | | | +--------+ + + + [...] Notes Telephone Encounter - Adrianne Horton, Supervisor [employer] - 03/11/2015 3:41 PM PDTCalled Pat and delivered her results. Patient verbalized good understanding. elephone Encounter - Adrianne Horton , Supervisor Melt House - 03/11/2015 8:40 AM PDTCall placed to [...]
--- OUTSIDE RECORDS SUMMARY | ~2020-08-08 | XMS | Encounter Summary ---
Demographics + + + | Address | [address] [facility] | | | [place] [address] | + + + | Home Phone [...] [place] | | | | | [address] | | + + + + + [...] Abstract | [facility] [place] | [facility], | | | 2012 | | GASTROENTEROLOGY | [address] | | | | | [address] | [address] | | | | | [address] [place], [place] | [place], [place] | | | | | [address] | [address] | | | | | [phone] | | | +--------+ + + + [...]
--- OUTSIDE RECORDS SUMMARY | ~2020-08-08 | XMS | Encounter Summary ---
Demographics + + + | Address | [address] [facility] | | | [place] [address] | + + + | Home Phone [...] [place] | | | | | [address] | | + + + + + Care Team Providers + +------+ + | Care Documentation Specialist Name | Role | Phone | + +------+ + | Basim Bolanos MD | PCP | | + +------+ + Encounter Details +--------+ + + + + | Date | Type | Department | Care Team | Description | +--------+ + + + + | 04/18/ | Abstract | [facility] [place] | [facility], | | | 2012 | | GASTROENTEROLOGY | [address] | | | | | [address] | [address] | | | | | [address] [place], [place] | [place], [place] | | | | | [address] | [address] | | | | | [phone] | | | +--------+ + + + [...]
--- OUTSIDE RECORDS SUMMARY | ~2020-08-08 | XMS | Encounter Summary ---
Demographics + + + | Address | [address] [facility] | | | [place] [address] | + + + | Home Phone [...] [place] | | | | | [address] | | + + + + + Care Team Providers + +------+ + | Care Stock Parts Fabricator Name | Role | Phone | + +------+ + PCP | Unavailable | + +------+ + Encounter Details +--------+ + + + + | Date | Type | Department | Care Team | Description | +--------+ + + + + | 01/06/ | Hospital | [facility] | | | | 1992 | Encounter | MED CTR LABORATORY | | | | | | [address] | | | | | | [place] | | | | | | [address] | | | | | | [phone] | | | +--------+ + + + [...]
--- OUTSIDE RECORDS SUMMARY | ~2020-08-08 | XMS | Encounter Summary ---
Demographics + + + | Address | [address] [facility] | | | [place] [address] | + + + | Home Phone [...] [place] | | | | | [address] | | + + + + + Care Team Providers + +------+ + | Care Wallpaper Inspector Name | Role | Phone | [...] + + | 10/23/ | Telephone | [facility] | Ashley Chávez | Other (Patient | | 2019 | | CARDIOLOGY GENESIS Abad, Steam Gigger | called about | | | | [address] | | metoprolol. ) | | | | [place] | | | | | | [address] | | | | | | [phone] | | | +--------+ + + + [...] Miscellaneous Notes Telephone Encounter - Ashley Chávez, Steam Gigger - 10/23/2019 10:49 AM Rory t called [...] back when I have her recommendations. JKASSIE:IRINA-AAMA. [facility] umented in this encounter Plan of Treatment Not on filedocumented as of this encounter Visit Diagnoses Not on filedocumented in this encounter"
[~2020-08-08 11:05] MED LIST changes: +GABAPENTIN600 MG PO
--- OUTSIDE RECORDS SUMMARY | 2020-08-08 11:08 | XMS ---
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 Security Deburr Technician Events No recent Security Events currently on file CRITERIA MET - 6 ED Visits in 6 Months - [facility] - Has Care Guidelines - [facility] - 2 Visits in 30 Days CARE PROVIDERS WAYNE CAMARGO Internal Medicine 09/07/2019-Current PHONE: [phone] SMITH DOMINGUEZ Counselor: Mental Health 05/21/2020-Current PHONE: [phone] Kenny Palafox [facility] Current PHONE: [phone] ANGELICA MELVIN Internal Medicine: Pulmonary Disease 05/21/2020-Current PHONE: Unknown Jose Ag [facility] 01/31/2019-Current PHONE: [phone] Guidelines Source: [facility] Guidelines Date: 03/13/2019 Care Coordination: Mental health services are being provided by [facility].\T\nbsp; Please contact [facility] with mental health concerns.\T\nbsp; Zuleima/Philippe Woods: \T\nbsp; Moshe: [phone]. Care History Medical/Surgical 06/02/2020 [facility] - LETTER FROM PATIENT PCP- DR DOMINGUEZ [...] TO DR DOMINGUEZ IF NEEDED. DR DOMINGUEZ [phone] 05/26/2020 [facility] Patient stated that she was having chest discomfort and called [facility] and they told her to go to ED. Patient has a televisit with Dr. Dominguez on 05/27/2020 at 8:40 am. 05/21/2020 [facility] Patient\T\#39;s therapist, Ashley Lopez, FAMILY SERVICES WORKER at [facility] has been advised of her overuse of the ED and discussed with her. Also, she has put in a Referral to have a CHW at [facility] work with her .\T\nbsp; Patient was just seen by Walk In provider, Ashley Sharp, yesterday, 05/20/2020 for skin issue.\T\ nbsp; Next PCP visit on 05/29/2020. E.D. VISIT COUNT (12 MO.) 29 [facility]. TOTAL 29 NOTE: Visits indicate total known visits. ED/UCC VISIT TRACKING (12 MO.) 08/08/2020 11:06 [facility] [place] TYPE: Emergency COMPLAINT: - MEDICAL CLEARENCE 07/28/2020 13:34 [facility] [place] TYPE: Emergency COMPLAINT: - MEDICAL CLEARANCE DIAGNOSES: - Other intermodal dispatcher (current) drug therapy - Type 2 diabetes mellitus without complications - Gastro-esophageal reflux disease without esophagitis - Allergy status to other drugs, medicaments and biological sub - Allergy status to sulfonamides status - intermodal dispatcher (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 of 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 - Schizoaffective disorder, unspecified - Essential (primary) hypertension - Old myocardial infarction 07/11/2020 12:35 [facility] [place] TYPE: Emergency COMPLAINT: - MEDICAL CLEARANCE 07/03/2020 18:28 [facility] [place] TYPE: Emergency COMPLAINT: - MEDICAL CLEARANCE DIAGNOSES: - intermodal dispatcher (current) use of opiate analgesic - care home (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 of 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 - Old myocardial infarction - Other custodial (current) drug therapy - Allergy status to sulfonamides status - Gastro-esophageal reflux disease without esophagitis - Allergy status to other drugs, medicaments and biological sub - Type 2 diabetes mellitus without complications - Schizoaffective disorder, unspecified - Personal history of transient ischemic attack (TIA), and cere - Essential (primary) hypertension 07/03/2020 09:58 [facility] [place] TYPE: Emergency COMPLAINT: - HIP PAIN/FALL DIAGNOSES: - Unspecified fracture of sacrum, subsequent encounter for frac - Exposure to other specified factors, subsequent encounter 07/01/2020 07:41 [facility] [place] TYPE: Emergency COMPLAINT: - L HIP, LEG PAIN DIAGNOSES: - Pain in left hip - Sacrococcygeal disorders, not elsewhere classified 06/24/2020 01:30 [facility] [place] TYPE: Emergency [...] of left hip, initial encounter - Other intermodal dispatcher (current) drug therapy - Allergy status to sulfonamides status 05/25/2020 12:32 [facility] [place] [place] TYPE: Emergency COMPLAINT: - CHEST PAIN, DIZZINESS DIAGNOSES: - Gastro-esophageal reflux disease without esophagitis - Old myocardial infarction - Other intermodal dispatcher (current) drug therapy - care home (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 - Allergy status to sulfonamides status - intermodal dispatcher (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 of 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 - [...] transient ischemic attack (TIA), and cere - care home (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 - Schizophrenia, unspecified - Type 2 diabetes mellitus with hyperglycemia - Other intermodal dispatcher (current) drug therapy - Gastro-esophageal reflux disease [...] Emergency COMPLAINT: - LIGHT HEADED DIAGNOSES: - intermodal dispatcher (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 of 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 - Allergy status to sulfonamides status - Old myocardial infarction - Schizophrenia, unspecified - Type 2 diabetes mellitus with hyperglycemia - Shortness of breath - Allergy status to other drugs, medicaments and biological sub - Essential (primary) hypertension - Other custodial (current) drug therapy - care home (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 - Gastro-esophageal reflux disease without esophagitis 05/13/2020 19:[address] [facility] [place] TYPE: Emergency COMPLAINT: - MEDICAL CLEARANCE DIAGNOSES: - Allergy status to other drugs, medicaments and biological sub - Other custodial (current) drug therapy - intermodal dispatcher (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 of 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 - Encounter for other general examination - Essential (primary) hypertension - Gastro-esophageal reflux disease without esophagitis - care home (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 - Allergy status to sulfonamides status - Old myocardial infarction - Type 2 diabetes mellitus without complications 05/06/2020 06:05 [facility] [place] TYPE: Emergency COMPLAINT: - RAPID HEARTRATE DIAGNOSES: - Gastro-esophageal reflux disease without esophagitis - intermodal dispatcher (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 of 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 - Allergy status to sulfonamides status - Essential (primary) hypertension - Allergy status to other drugs, medicaments and biological sub - Type 2 diabetes mellitus without complications - care home (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 - Palpitations - Old myocardial infarction - Other custodial (current) drug therapy 05/03/2020 19:00 [facility] [place] TYPE: Emergency COMPLAINT: - RAPID HEART RATE DIAGNOSES: - Allergy status to other drugs, medicaments and biological sub - Allergy status to sulfonamides status - Old myocardial infarction - Gastro-esophageal reflux disease without esophagitis - Essential (primary) hypertension - care home (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 of 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 - Type 2 diabetes mellitus with hyperglycemia - intermodal dispatcher (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 - Palpitations - Other custodial (current) drug therapy 04/28/2020 18:43 [facility] [place] TYPE: Emergency COMPLAINT: - MEDICAL CLEARANCE DIAGNOSES: - Gastro-esophageal reflux disease without esophagitis - Allergy status to other drugs, medicaments and biological sub - Essential (primary) hypertension - Allergy status to sulfonamides status - Type 2 diabetes mellitus without complications - Other intermodal dispatcher (current) drug therapy - Hallucinations, unspecified - [...] Allergy status to sulfonamides status - Other custodial (current) drug therapy - Abrasion, left knee, [...] Gastro-esophageal reflux disease without esophagitis - Other custodial (current) drug therapy - Delusional disorders 10/22/2019 16:37 [facility] TYPE: Emergency COMPLAINT: - MEDICAL CLEARANCE DIAGNOSES: - Type 2 diabetes mellitus without complications - Gastro-esophageal reflux disease without esophagitis - Old myocardial infarction - Other intermodal dispatcher (current) drug therapy - Essential (primary) hypertension - Allergy status to sulfonamides status - Allergy status to other drugs, medicaments and biological sub - Encounter for other general examination 10/20/2019 20:02 [facility] [place] TYPE: Emergency COMPLAINT: - MEDICAL CLEARANCE DIAGNOSES: - Gastro-esophageal reflux disease without esophagitis - Type 2 diabetes mellitus without complications - Encounter for other general examination - Other custodial (current) drug therapy - Old myocardial infarction - Allergy status to other drugs, medicaments and biological sub - Essential (primary) hypertension - Allergy status to sulfonamides status Plus 9 More Visits INPATIENT VISIT TRACKING (12 MO.) [...] sub - Paroxysmal atrial fibrillation - Other custodial (current) drug therapy - Allergy status to sulfonamides status [email or web address]
== END 2020-08-08 16:51 | disposition home or self-care (01) ==
LOC: ED 11:05
DX: F32.9 Major depressive disorder, single episode, unspecified (principal); I10 Essential (primary) hypertension; K21.9 Gastro-esophageal reflux disease without esophagitis; E11.9 Type 2 diabetes mellitus without complications; I25.2 Old myocardial infarction; Z86.73 Personal history of transient ischemic attack (TIA), and cerebral infarction without residual deficits; Z88.2 Allergy status to sulfonamides; Z88.8 Allergy status to other drugs, medicaments and biological substances; Z79.899 Other long term (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; Z79.84 Long term (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 of 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
CPT/HCPCS: 99283

== ENCOUNTER 2020-10-23 09:49 | Emergency (ER) | payer MEDICARE ==
[~2020-10-23] VITALS: Ht 170.2 cm; Wt 99.8 kg
--- OUTSIDE RECORDS SUMMARY | 2020-10-23 09:52 | XMS ---
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 No recent Security Events currently on file CRITERIA MET - 6 ED Visits in 6 Months - [facility] - [facility] [place] [facility] Guidelines - PDMP CARE PROVIDERS WAYNE CAMARGO Internal Medicine 09/07/2019-Current PHONE: [phone] SMITH CAMACHO Counselor: Mental Health 05/21/2020-Current PHONE: [phone] Kenny Palafox DO [facility] Current PHONE: [phone] ANGELICA MELVIN Internal Medicine: Pulmonary Disease 05/21/2020-Current PHONE: Unknown Jose Ag [facility] 01/31/2019-Current PHONE: [phone] Care Guidelines exist for the following facilities: [facility], [place], [facility] ( 03/13/2019 ) Care History Medical/Surgical 06/02/2020 [facility] - LETTER FROM PATIENT PCP- DR [...] TO DR DOMINGUEZ IF NEEDED. DR DOMINGUEZ [phone] 05/26/2020 [facility] Patient stated that she was having chest discomfort and called [facility] and they told her to go to ED. Patient has a televisit with Dr. Dominguez on 05/27/2020 at 8:40 am. 05/21/2020 [facility] Patient\T\#39;s therapist, Ashley Lopez, FIXED CAPITAL CLERK at [employer] has been advised of her overuse of the ED and discussed with her. Also, she has put in a Referral to have a CHW at [employer] work with her .\T\nbsp; Patient was just seen by Walk In provider, Ashley Sharp, yesterday, 05/20/2020 for skin issue.\T\ nbsp; Next PCP visit on 05/29/2020. E.D. VISIT COUNT (12 MO.) 18 [facility]. TOTAL 18 NOTE: Visits indicate total known visits. 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 - Gastro-esophageal reflux disease without esophagitis - skilled nursing (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 of 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 - Essential (primary) hypertension - Major depressive disorder, single episode, unspecified 07/28/2020 13:34 [facility] [place] TYPE: Emergency COMPLAINT: - MEDICAL CLEARANCE DIAGNOSES: - Other custodial (current) drug therapy - Type 2 diabetes mellitus without complications - Gastro-esophageal reflux disease without esophagitis - Allergy status to other drugs, medicaments and biological substances - Allergy status to sulfonamides - skilled nursing (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 of 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 - Schizoaffective disorder, unspecified - Essential (primary) hypertension - Old myocardial infarction 07/11/2020 12:35 [facility] [place] TYPE: Emergency COMPLAINT: - MEDICAL CLEARANCE 07/03/2020 18:28 [facility] [place] TYPE: Emergency COMPLAINT: - MEDICAL CLEARANCE DIAGNOSES: - long term care social worker (current) use of opiate analgesic - skilled nursing (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 of 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 - Old myocardial infarction - Other custodial (current) drug therapy - Allergy status to sulfonamides - Gastro-esophageal reflux disease without esophagitis - Allergy status to other drugs, medicaments and biological substances - Type 2 diabetes mellitus without complications - Schizoaffective disorder, unspecified - Personal history of transient ischemic attack (TIA), and cerebral infarction without residual deficits - Essential (primary) hypertension 07/03/2020 09:58 [facility] [place] TYPE: Emergency COMPLAINT: - HIP PAIN/FALL DIAGNOSES: - Unspecified fracture of sacrum, subsequent encounter for fracture with routine healing - Exposure to other specified factors, subsequent encounter 07/01/2020 07:41 [facility] [place] TYPE: Emergency COMPLAINT: - L HIP, LEG PAIN DIAGNOSES: - Pain in left hip - Sacrococcygeal disorders, not elsewhere classified 06/24/2020 01:30 [facility] [place] TYPE: Emergency COMPLAINT: - HIP PAIN INJURY DIAGNOSES: - Essential (primary) hypertension - Fall on same level from slipping, tripping and stumbling without subsequent striking against object, initial encounter - Type 2 diabetes mellitus without complications - Old myocardial infarction - Gastro-esophageal reflux disease without esophagitis - Allergy status to other drugs, medicaments and biological substances - Pain in left hip - Contusion of left hip, initial encounter - 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 - Allergy status to sulfonamides 05/25/2020 12:32 [facility] [place] TYPE: Emergency COMPLAINT: - CHEST PAIN, DIZZINESS DIAGNOSES: - Gastro-esophageal reflux disease without esophagitis - Old myocardial infarction - 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 - long term care social worker (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 - Allergy status to sulfonamides - skilled nursing (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 of 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 - Type 2 diabetes mellitus without complications - Essential (primary) hypertension - Chest pain, unspecified - Allergy status to other drugs, medicaments and biological substances 05/23/2020 09:03 [facility] [place] TYPE: Emergency COMPLAINT: - CHEST PAIN DIAGNOSES: - Allergy status to sulfonamides - Allergy status to other drugs, medicaments and biological substances - Old myocardial infarction - Personal history of transient ischemic attack (TIA), and cerebral infarction without residual deficits - skilled nursing (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 - Schizophrenia, unspecified - Type 2 diabetes mellitus with hyperglycemia - 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 - Gastro-esophageal reflux disease without esophagitis - Essential (primary) hypertension - Chest pain, unspecified 05/22/2020 11:22 [facility] [place] TYPE: Emergency COMPLAINT: - CHEST PAIN, SOB DIAGNOSES: - Chest pain, unspecified - Type 2 diabetes mellitus with hyperglycemia - Allergy status to other drugs, medicaments and biological substances - Gastro-esophageal reflux disease without esophagitis - Allergy status to sulfonamides - Chest pain, unspecified 05/21/2020 04:15 [facility] [place] TYPE: Emergency COMPLAINT: - LIGHT HEADED DIAGNOSES: - skilled nursing (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 of 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 - Allergy status to sulfonamides - Old myocardial infarction - Schizophrenia, unspecified - Type 2 diabetes mellitus with hyperglycemia - Shortness of breath - Allergy status to other drugs, medicaments and biological substances - Essential (primary) hypertension - Other custodial (current) drug therapy - skilled nursing (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 - Gastro-esophageal reflux disease without esophagitis 05/13/2020 19:47 [facility] [place] TYPE: Emergency COMPLAINT: - MEDICAL CLEARANCE DIAGNOSES: - Allergy status to other drugs, medicaments and biological substances - Other custodial (current) drug therapy - long term care social worker (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 of 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 - Encounter for other general examination - Essential (primary) hypertension - Gastro-esophageal reflux disease without esophagitis - long term care social worker (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 - Allergy status to sulfonamides - Old myocardial infarction - Type 2 diabetes mellitus without complications 05/06/2020 06:05 [facility] [place] TYPE: Emergency COMPLAINT: - RAPID HEARTRATE DIAGNOSES: - Gastro-esophageal reflux disease without esophagitis - long term care social worker (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 of 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 - Allergy status to sulfonamides - Essential (primary) hypertension - Allergy status to other drugs, medicaments and biological substances - Type 2 diabetes mellitus without complications - long term care social worker (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 - Palpitations - Old myocardial infarction - Other custodial (current) drug therapy 05/03/2020 19:00 [facility] [place] TYPE: Emergency COMPLAINT: - RAPID HEART RATE DIAGNOSES: - Allergy status to other drugs, medicaments and biological substances - Allergy status to sulfonamides - Old myocardial infarction - Gastro-esophageal reflux disease without esophagitis - Essential (primary) hypertension - skilled nursing (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 of 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 - Type 2 diabetes mellitus with hyperglycemia - long term care social worker (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 - Palpitations - Other custodial (current) drug therapy 04/28/2020 18:43 [facility] [place] TYPE: Emergency COMPLAINT: - MEDICAL CLEARANCE DIAGNOSES: - Gastro-esophageal reflux disease without esophagitis - Allergy status to other drugs, medicaments and biological substances - Essential (primary) hypertension - Allergy status to sulfonamides - Type 2 diabetes mellitus without complications - Other custodial (current) drug therapy - Hallucinations, unspecified - Encounter for other general examination 04/20/2020 17:25 [facility] [place] TYPE: Emergency COMPLAINT: - SYNCOPE 04/03/2020 12:57 [facility] [place] TYPE: Emergency COMPLAINT: - FALL DIAGNOSES: - Abrasion, right knee, initial encounter - Allergy status to other drugs, medicaments and biological substances - Pain in left knee - Unspecified fall, initial encounter - Gastro-esophageal reflux disease without esophagitis - Other injury of unspecified body region, initial encounter - Allergy status to sulfonamides - 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 - Abrasion, left knee, initial encounter - Type 2 diabetes mellitus without complications - Essential (primary) hypertension 10/23/2019 08:03 [facility] [place] TYPE: Emergency COMPLAINT: - MEDICAL CLEARANCE DIAGNOSES: - Type 2 diabetes mellitus without complications - Old myocardial infarction - Allergy status to sulfonamides - Allergy status to other drugs, medicaments and biological substances - Essential (primary) hypertension - Gastro-esophageal reflux disease without esophagitis - Other custodial (current) drug therapy - Delusional disorders INPATIENT VISIT TRACKING (12 MO.) 04/20/2020 17:26 [facility] [place] TYPE: Observation COMPLAINT: - SYNCOPE DIAGNOSES: - Gastro-esophageal reflux disease without esophagitis - Contact with and (suspected) exposure to other viral communicable diseases - Type 2 diabetes mellitus with hyperglycemia - Schizoaffective disorder, unspecified - Syncope and collapse - Allergy status to other drugs, medicaments and biological substances - Paroxysmal atrial fibrillation - 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
[2020-10-23] MEDS ORDERED: SAPHRIS5 MG SL (11:15)
[2020-10-23] MEDS ORDERED: METOPROLOL SUC100 MG PO (11:34)
[2020-10-23] MEDS ORDERED: AMITRIPTYLINE150 MG PO (11:35)
--- NOTE | 2020-10-23 19:29 | EKG ---
[facility] [address] [place] [address] Signed Sinus rhythm with 1st degree AV block Left bundle branch block Abnormal ECG When compared with ECG of 25-MAY-2020 12:34, OR interval has increased T wave inversion more evident in Lateral leads Confirmed by RONALD DIAZ DO ([id number]) on 10/23/2020 7:29:12 PM Electronically Signed By: RONALD DIAZ DO 10/23/20 1929 PATIENT NAME: BERNARDA ALARCON AIDE Electrocardiogram DATE OF : 55 PHYSICIAN: RONALD DIAZ DO REPORT #: [id number] REPORT IS CONFIDENTIAL AND NOT TO BE RELEASED WITHOUT AUTHORIZATION
[2020-10-24] MEDS ORDERED: SAPHRIS10 MG SL (16:30)
[2020-10-24] MEDS ORDERED: PROTONIX40 MG PO (16:31)
[2020-10-24] MEDS ORDERED: SAPHRIS5 MG SL (18:41)
== END 2020-10-25 12:19 | disposition home or self-care (01) ==
LOC: ED 09:49
DX: E11.65 Type 2 diabetes mellitus with hyperglycemia (principal); F25.9 Schizoaffective disorder, unspecified; Z20.828 Contact with and (suspected) exposure to other viral communicable diseases; I10 Essential (primary) hypertension; K21.9 Gastro-esophageal reflux disease without esophagitis; Z86.73 Personal history of transient ischemic attack (TIA), and cerebral infarction without residual deficits; I25.2 Old myocardial infarction; Z88.2 Allergy status to sulfonamides; Z88.8 Allergy status to other drugs, medicaments and biological substances; Z79.899 Other long term (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; Z79.84 Long term (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 of 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
CPT/HCPCS: 80053; 80176; 81001; 84443; 85025; 93005; 93010; 99285-25; C9803; G0480; J7030; U0003

== ENCOUNTER 2021-03-09 11:33 | Emergency (ER) | payer MEDICARE, SELFPAY ==
[~2021-03-09] VITALS: Ht 170.2 cm; Wt 99.8 kg
[~2021-03-09 11:33] MED LIST changes: +AMITRIPTYLINE150 MG PO; +METOPROLOL SUC100 MG PO; +SAPHRIS5 MG SL
--- OUTSIDE RECORDS SUMMARY | 2021-03-09 11:38 | XMS ---
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 No recent Security Events currently on file CRITERIA MET - [facility] CARE PROVIDERS WAYNE CAMARGO Internal Medicine 09/07/2019-Current PHONE: [phone] SMITH CAMACHO Counselor: Mental Health 05/21/2020-Current PHONE: [phone] Kenny Palafox DO [facility] Current PHONE: [phone] ANGELICA MELVIN Internal Medicine: Pulmonary Disease 05/21/2020-Current PHONE: Unknown Jose Ag [facility] 01/31/2019-Current PHONE: [phone] Care Guidelines exist for the following facilities: [facility] ( 12/08/2020 ) Care History Medical/Surgical 06/02/[address] [facility] [...] TO DR DOMINGUEZ IF NEEDED. DR DOMINGUEZ [phone] 05/26/[address] [facility] Patient stated that she was having chest discomfort and called [facility] and they told her to go to ED. Patient has a televisit with Dr. Dominguez on 05/27/2020 at 8:40 am. 05/21/[address] [facility] Patient\T\#39;s therapist, Ashley Lopez, INVENTORY AND PRICING ASSOCIATE at [facility] has been advised of her overuse of the ED and discussed with her. Also, she has put in a Referral to have a CHW at [employer] work with her .\T\nbsp; Patient was just seen by Walk In provider, Ashley Sharp, yesterday, 05/20/2020 for skin issue.\T\ nbsp; Next PCP visit on 05/29/2020. E.D. VISIT COUNT ([address] [facility]. TOTAL 19 NOTE: Visits indicate total known visits. ED/UCC VISIT TRACKING (12 MO.) 03/09/2021 11:33 [facility] [place] TYPE: Emergency COMPLAINT: - CHEST PAIN 10/23/2020 09:49 [facility] [place] TYPE: Emergency COMPLAINT: - MEDICAL CLEARANCE, BLOOD SUGAR PROBLEM DIAGNOSES: - Allergy status to other drugs, medicaments and biological substances - Gastro-esophageal reflux disease without esophagitis - Allergy status to other drugs, medicaments and biological substances - Allergy status to sulfonamides - Allergy status to sulfonamides - Personal history of transient ischemic attack (TIA), and cerebral infarction without residual deficits - Old myocardial infarction - Contact with and (suspected) exposure to other viral communicable diseases - parts counterman (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 of 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 - Type 2 diabetes mellitus with hyperglycemia - Schizoaffective disorder, unspecified - Other tank terminal gauger (current) drug therapy - Essential (primary) hypertension 08/08/2020 11:06 [facility] [place] TYPE: Emergency COMPLAINT: - MEDICAL CLEARENCE DIAGNOSES: - Type 2 diabetes mellitus without complications - Allergy status to other drugs, medicaments and biological substances - Old myocardial infarction - Personal history of transient ischemic attack (TIA), and cerebral infarction without residual deficits - Allergy status to sulfonamides - Other senior care (current) drug therapy - Allergy status to other drugs, medicaments and biological substances - Gastro-esophageal reflux disease without esophagitis - parts counterman (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 of 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 - Allergy status to sulfonamides - Essential (primary) hypertension - Major depressive disorder, single episode, unspecified 07/28/2020 13:34 [facility] [place] TYPE: Emergency COMPLAINT: - MEDICAL CLEARANCE DIAGNOSES: - Allergy status to sulfonamides - Allergy status to other drugs, medicaments and biological substances - Other senior care (current) drug therapy - Type 2 diabetes mellitus without complications - Gastro-esophageal reflux disease without esophagitis - Allergy status to other drugs, medicaments and biological substances - Allergy status to sulfonamides - 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 (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 of 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 - Schizoaffective disorder, unspecified - Essential (primary) hypertension - Old myocardial infarction 07/11/2020 12:35 [facility] [place] TYPE: Emergency COMPLAINT: - MEDICAL CLEARANCE 07/03/2020 18:28 [facility] [place] TYPE: Emergency COMPLAINT: - MEDICAL CLEARANCE DIAGNOSES: - 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 (current) use of opiate analgesic - parts counterman (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 of 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 - Old myocardial infarction - Other senior [...] of left hip, initial encounter - Other tank terminal gauger (current) drug therapy - Allergy status to sulfonamides 05/25/2020 12:32 [facility] [place] TYPE: Emergency COMPLAINT: - CHEST PAIN, DIZZINESS DIAGNOSES: - Gastro-esophageal reflux disease without esophagitis - Old myocardial infarction - Other senior care (current) drug therapy - 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 (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 - Allergy status to sulfonamides - parts counterman (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 of 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 - [...] and cerebral infarction without residual deficits - parts counterman (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 - Schizophrenia, unspecified - Type 2 diabetes mellitus with hyperglycemia - Other senior care (current) drug therapy - Gastro-esophageal reflux disease without esophagitis - Essential (primary) hypertension - Chest pain, unspecified 05/22/2020 11:22 [facility] [place] TYPE: Emergency COMPLAINT: - CHEST PAIN, SOB DIAGNOSES: - Chest pain, unspecified - Type 2 diabetes mellitus with hyperglycemia - Allergy status to other drugs, medicaments and biological substances - Gastro-esophageal reflux disease without esophagitis - Allergy status to sulfonamides - Chest pain, unspecified 05/21/2020 04:15 [facility] [place] TYPE: Emergency COMPLAINT: - LIGHT HEADED DIAGNOSES: - parts counterman (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 of 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 - Allergy status to sulfonamides - Old myocardial infarction - Schizophrenia, unspecified - Type 2 diabetes mellitus with hyperglycemia - Shortness of breath - Allergy status to other drugs, medicaments and biological substances - Essential (primary) hypertension - Other senior care (current) drug therapy - parts counterman (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 - Gastro-esophageal reflux disease without esophagitis 05/13/2020 19:47 [facility] [place] TYPE: Emergency COMPLAINT: - MEDICAL CLEARANCE DIAGNOSES: - Allergy status to other drugs, medicaments and biological substances - Other senior care (current) drug therapy - 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 (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 of 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 - Encounter for other general examination - Essential (primary) hypertension - Gastro-esophageal reflux disease without esophagitis - 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 (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 - Allergy status to sulfonamides - Old myocardial infarction - Type 2 diabetes mellitus without complications 05/06/2020 06:05 [facility] [place] TYPE: Emergency COMPLAINT: - RAPID HEARTRATE DIAGNOSES: - Gastro-esophageal reflux disease without esophagitis - parts counterman (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 of 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 - Allergy status to sulfonamides - Essential (primary) hypertension - Allergy status to other drugs, medicaments and biological substances - Type 2 diabetes mellitus without complications - 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 (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 - Palpitations - Old myocardial infarction - Other tank terminal gauger (current) drug therapy 05/03/2020 19:00 [facility] [place] TYPE: Emergency COMPLAINT: - RAPID HEART RATE DIAGNOSES: - Allergy status to other drugs, medicaments and biological substances - Allergy status to sulfonamides - Old myocardial infarction - Gastro-esophageal reflux disease without esophagitis - Essential (primary) hypertension - 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 (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 of 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 - Type 2 diabetes mellitus with hyperglycemia - 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 (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 - Palpitations - Other tank terminal gauger (current) drug therapy 04/28/2020 18:43 [facility] [place] TYPE: Emergency COMPLAINT: - MEDICAL CLEARANCE DIAGNOSES: - Gastro-esophageal reflux disease without esophagitis - Allergy status to other drugs, medicaments and biological substances - Essential (primary) hypertension - Allergy status to sulfonamides - Type 2 diabetes mellitus without complications - Other tank terminal gauger (current) drug therapy - Hallucinations, unspecified - [...] - Allergy status to sulfonamides - Other tank terminal gauger (current) drug therapy - Abrasion, left knee, initial encounter - Type 2 diabetes mellitus without complications - Essential (primary) hypertension INPATIENT VISIT TRACKING (12 MO.) 04/20/2020 17:26 [...] substances - Paroxysmal atrial fibrillation - Other senior care (current) drug therapy - Allergy status to sulfonamides [email or web address]
[2021-03-09] MEDS ORDERED: METFORMIN HCL500 M1 PO (11:51)
[2021-03-09] MEDS ORDERED: CARBAMAZEPINE200 M2 PO (11:52)
[2021-03-09] MEDS ORDERED: ZIPRASIDONE HCL40 MG PO (11:52)
[2021-03-09] MEDS ORDERED: OLANZAPINE15 MG PO (11:53)
--- NOTE | 2021-03-10 03:12 | EKG ---
[facility] [address] [place] [address] Signed Normal sinus rhythm Left axis deviation Left bundle branch block Abnormal ECG When compared with ECG of 23-OCT-2020 10:23, [place] interval has decreased Nonspecific T wave abnormality no longer evident in Inferior leads Confirmed by PHIL SAMAYOA MD ([id number]) on 03/10/2021 3:12:10 AM Electronically Signed By: PHIL SAMAYOA MD 03/10/21 0312 PATIENT NAME: BERNARDA ALARCON AIDE Electrocardiogram DATE OF : 55 PHYSICIAN: PHIL SAMAYOA MD REPORT #: [id number] REPORT IS CONFIDENTIAL AND NOT TO BE RELEASED WITHOUT AUTHORIZATION
== END 2021-03-09 17:04 | disposition home or self-care (01) ==
LOC: ED 11:33
DX: R07.9 Chest pain, unspecified (principal); I10 Essential (primary) hypertension; K21.9 Gastro-esophageal reflux disease without esophagitis; E11.9 Type 2 diabetes mellitus without complications; I25.2 Old myocardial infarction; Z88.2 Allergy status to sulfonamides; Z88.8 Allergy status to other drugs, medicaments and biological substances; Z79.899 Other long term (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; Z79.84 Long term (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 of 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
CPT/HCPCS: 71045; 80053; 83735; 84484; 85025; 93005; 93010; 99285-25; J7030

== ENCOUNTER 2021-03-12 08:14 | Emergency (ER) | payer MEDICARE, SELFPAY ==
[~2021-03-12] VITALS: Ht 170.2 cm; Wt 99.8 kg
[~2021-03-12 08:14] MED LIST changes: +CARBAMAZEPINE200 M2 PO; +OLANZAPINE15 MG PO; +ZIPRASIDONE HCL40 MG PO
--- OUTSIDE RECORDS SUMMARY | 2021-03-12 08:20 | XMS ---
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 Events No recent Security Events currently on file CRITERIA MET - [facility] - Has Care Guidelines - [facility] - 2 Visits in 30 Days CARE PROVIDERS WAYNE CAMARGO Internal Medicine 09/07/2019-Current PHONE: [phone] SMITH CAMACHO Counselor: Mental Health 05/21/2020-Current PHONE: [phone] Kenny Palafox [facility] Current PHONE: [phone] ANGELICA MELVIN Internal Medicine: Pulmonary Disease 05/21/2020-Current PHONE: Unknown Jose Ag [facility] 01/31/2019-Current PHONE: [phone] Care Guidelines exist for the following facilities: [facility] ( 12/08/2020 ) Care History Medical/Surgical 06/02/2020 [facility] - LETTER FROM PATIENT PCP- DR [...] TO DR DOMINGUEZ IF NEEDED. DR DOMINGUEZ [phone] 05/26/2020 [facility] Patient stated that she was having chest discomfort and called [facility] and they told her to go to ED. Patient has a televisit with Dr. Dominguez on 05/27/2020 at 8:40 am. 05/21/2020 [facility] Patient\T\#39;s therapist, Ashley Lopez, INTERNATIONAL REPRESENTATIVE at [employer] has been advised of her overuse of the ED and discussed with her. Also, she has put in a Referral to have a CHW at [employer] work with her .\T\nbsp; Patient was just seen by Walk In provider, Ashley Sharp, yesterday, 05/20/2020 for skin issue.\T\ nbsp; Next PCP visit on 05/29/2020. E.D. VISIT COUNT ([address] [facility]. TOTAL 20 NOTE: Visits indicate total known visits. ED/UCC VISIT TRACKING (12 MO.) 03/12/2021 08:15 [facility] [place] TYPE: Emergency COMPLAINT: - CHEST PAIN 03/09/2021 11:33 [facility] [place] TYPE: Emergency COMPLAINT: - CHEST PAIN DIAGNOSES: - Other parts counterman (current) drug therapy - Essential (primary) hypertension - long-term (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 of 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 - Old myocardial infarction - Chest pain, unspecified - Type 2 diabetes mellitus without complications - Allergy status to other drugs, medicaments and biological substances - Allergy status to sulfonamides - Gastro-esophageal reflux disease without esophagitis 10/23/2020 09:49 [facility] [place] TYPE: Emergency [...] exposure to other viral communicable diseases - long-term (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 of 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 - Type 2 diabetes mellitus with hyperglycemia - Schizoaffective disorder, unspecified - Other parts counterman (current) drug therapy - Essential (primary) hypertension 08/08/2020 11:06 [facility] [place] TYPE: Emergency COMPLAINT: - MEDICAL CLEARENCE DIAGNOSES: - Type 2 diabetes mellitus without complications - Allergy status to other drugs, medicaments and biological substances - Old myocardial infarction - Personal history of transient ischemic attack (TIA), and cerebral infarction without residual deficits - Allergy status to sulfonamides - Other parts counterman (current) drug therapy - Allergy status to other drugs, medicaments and biological substances - Gastro-esophageal reflux disease without esophagitis - long-term (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 of 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 - Allergy status to sulfonamides - Essential (primary) hypertension - Major depressive disorder, single episode, unspecified 07/28/2020 13:34 [facility] [place] TYPE: Emergency COMPLAINT: - MEDICAL CLEARANCE DIAGNOSES: - Allergy status to sulfonamides - Allergy status to other drugs, medicaments and biological substances - Other parts counterman (current) drug therapy - Type 2 diabetes mellitus without complications - Gastro-esophageal reflux disease without esophagitis - Allergy status to other drugs, medicaments and biological substances - Allergy status to sulfonamides - 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 (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 of 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 - Schizoaffective disorder, unspecified - Essential (primary) hypertension - Old myocardial infarction 07/11/2020 12:35 [facility] [place] TYPE: Emergency COMPLAINT: - MEDICAL CLEARANCE 07/03/2020 18:28 [facility] TYPE: Emergency COMPLAINT: - MEDICAL CLEARANCE DIAGNOSES: - 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 (current) use of opiate analgesic - 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 (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 of 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 - Old myocardial infarction - Other parts counterman (current) drug therapy - Allergy status to [...] of left hip, initial encounter - Other residential (current) drug therapy - Allergy status to sulfonamides 05/25/2020 12:32 [facility] TYPE: Emergency COMPLAINT: - CHEST PAIN, DIZZINESS DIAGNOSES: - Gastro-esophageal reflux disease without esophagitis - Old myocardial infarction - Other parts counterman (current) drug therapy - 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 (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 - Allergy status to sulfonamides - 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 (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 of 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 - Type 2 diabetes mellitus without complications - Essential (primary) hypertension - Chest pain, unspecified - Allergy status to other drugs, medicaments and biological substances 05/23/2020 09:03 [facility] [place] TYPE: Emergency COMPLAINT: - CHEST PAIN DIAGNOSES: - Allergy status to sulfonamides - Allergy status to other drugs, medicaments and biological substances - Old myocardial infarction - Personal history of transient ischemic attack (TIA), and cerebral infarction without residual deficits - 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 (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 - Schizophrenia, unspecified - Type 2 diabetes mellitus with hyperglycemia - Other parts counterman (current) drug therapy - Gastro-esophageal reflux disease [...] Emergency COMPLAINT: - LIGHT HEADED DIAGNOSES: - long-term (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 of 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 - Allergy status to sulfonamides - Old myocardial infarction - Schizophrenia, unspecified - Type 2 diabetes mellitus with hyperglycemia - Shortness of breath - Allergy status to other drugs, medicaments and biological substances - Essential (primary) hypertension - Other residential (current) drug therapy - 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 (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 - Gastro-esophageal reflux disease without esophagitis 05/13/2020 19:47 [facility] TYPE: Emergency COMPLAINT: - MEDICAL CLEARANCE DIAGNOSES: - Allergy status to other drugs, medicaments and biological substances - Other residential (current) drug therapy - long-term (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 of 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 - Encounter for other general examination - Essential (primary) hypertension - Gastro-esophageal reflux disease without esophagitis - long-term (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 - Allergy status to sulfonamides - Old myocardial infarction - Type 2 diabetes mellitus without complications 05/06/2020 06:05 [facility] [place] TYPE: Emergency COMPLAINT: - RAPID HEARTRATE DIAGNOSES: - Gastro-esophageal reflux disease without esophagitis - long-term (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 of 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 - Allergy status to sulfonamides - Essential (primary) hypertension - Allergy status to other drugs, medicaments and biological substances - Type 2 diabetes mellitus without complications - long-term (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 - Palpitations - Old myocardial infarction - Other residential (current) drug therapy 05/03/2020 19:00 [facility] [place] TYPE: Emergency COMPLAINT: - RAPID HEART RATE DIAGNOSES: - Allergy status to other drugs, medicaments and biological substances - Allergy status to sulfonamides - Old myocardial infarction - Gastro-esophageal reflux disease without esophagitis - Essential (primary) hypertension - 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 (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 of 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 - Type 2 diabetes mellitus with hyperglycemia - long-term (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 - Palpitations - Other residential (current) drug therapy 04/28/2020 18:43 [facility] TYPE: Emergency COMPLAINT: - MEDICAL CLEARANCE DIAGNOSES: - Gastro-esophageal reflux disease without esophagitis - Allergy status to other drugs, medicaments and biological substances - Essential (primary) hypertension - Allergy status to sulfonamides - Type 2 diabetes mellitus without complications - Other parts counterman (current) drug therapy - Hallucinations, unspecified - [...] - Allergy status to sulfonamides - Other parts counterman (current) drug therapy - Abrasion, left knee, [...] substances - Paroxysmal atrial fibrillation - Other parts counterman (current) drug therapy - Allergy status to sulfonamides [email or web address]
--- NOTE | 2021-03-12 22:22 | EKG ---
[facility] [address] [place] [address] Signed Normal sinus rhythm Left axis deviation Left bundle branch block Abnormal ECG No previous ECGs available Confirmed by PHIL SAMAYOA MD ([id number]) on 03/12/2021 10:22:13 PM Electronically Signed By: PHIL SAMAYOA MD 03/12/212221 PATIENT NAME: BERNARDA ALARCON AIDE Electrocardiogram DATE OF : 55 PHYSICIAN: PHIL SAMAYOA MD REPORT #: [id number] REPORT IS CONFIDENTIAL AND NOT TO BE RELEASED WITHOUT AUTHORIZATION
== END 2021-03-12 11:51 | disposition home or self-care (01) ==
LOC: ED 08:14
DX: K21.9 Gastro-esophageal reflux disease without esophagitis (principal); I10 Essential (primary) hypertension; E11.9 Type 2 diabetes mellitus without complications; I25.2 Old myocardial infarction; Z88.8 Allergy status to other drugs, medicaments and biological substances; Z88.2 Allergy status to sulfonamides; Z88.1 Allergy status to other antibiotic agents; Z79.899 Other long term (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; Z79.01 Long term (current) use of anticoagulants
CPT/HCPCS: 80053; 84484; 85025; 96374; 99285-25; J2060

== ENCOUNTER 2021-04-06 16:02 | Emergency (ER) | payer MEDICARE, SELFPAY ==
[~2021-04-06] VITALS: Ht 170.2 cm; Wt 99.8 kg
--- OUTSIDE RECORDS SUMMARY | 2021-04-06 16:04 | XMS ---
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 No recent Security Events currently on file CRITERIA MET - [facility] - Has Care Guidelines - PDMP - [facility] - 2 Visits in 30 Days CARE PROVIDERS WAYNE CAMARGO Internal Medicine 09/07/2019-Current PHONE: [phone] SMITH CAMACHO Counselor: Mental Health 05/21/2020-Current PHONE: [phone] Kenny Palafox [facility] Current PHONE: [phone] ANGELICA MELVIN Internal Medicine: Pulmonary Disease 05/21/2020-Current PHONE: Unknown Jose Ag [facility] 01/31/2019-Current PHONE: [phone] Care Guidelines exist for the following facilities: [facility] ( 12/08/2020 ) Care History Medical/Surgical 06/02/2020 [facility] - LETTER FROM PATIENT PCP- DR DOMINGUEZ [...] TO DR DOMINGUEZ IF NEEDED. DR DOMINGUEZ [phone] 05/26/2020 [facility] Patient stated that she was having chest discomfort and called [facility] and they told her to go to ED. Patient has a televisit with Dr. Dominguez on 05/27/2020 at 8:40 am. 05/21/2020 [facility] Patient\T\#39;s therapist, Ashley Lopez, SERVICE TECH/WELDER at [employer] has been advised of her overuse of the ED and discussed with her. Also, she has put in a Referral to have a CHW at [employer] work with her .\T\nbsp; Patient was just seen by Walk In provider, Ashley Sharp, yesterday, 05/20/2020 for skin issue.\T\ nbsp; Next PCP visit on 05/29/2020. E.D. VISIT COUNT (12 MO.) 20 [facility]. TOTAL 20 NOTE: Visits indicate total known visits. ED/UCC VISIT TRACKING (12 MO.) 04/06/2021 16:02 [facility] TYPE: Emergency COMPLAINT: - CHEST PAIN 03/12/2021 08:15 [facility] TYPE: Emergency COMPLAINT: - CHEST PAIN DIAGNOSES: - Allergy status to other drugs, medicaments and biological substances - Type 2 diabetes mellitus without complications - Allergy status to other antibiotic agents - Old myocardial infarction - Precordial pain - Essential (primary) hypertension - Allergy status to sulfonamides - Gastro-esophageal reflux disease without esophagitis - custodial (current) use of anticoagulants - Other marketing education 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 03/09/2021 11:33 [facility] TYPE: Emergency COMPLAINT: - CHEST PAIN DIAGNOSES: - Other senior care (current) drug therapy - Essential (primary) hypertension - dry mill operator (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 of 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 [...] exposure to other viral communicable diseases - custodial (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 of 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 - Type 2 diabetes mellitus with hyperglycemia - Schizoaffective disorder, unspecified - Other marketing education 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 - Essential (primary) hypertension 08/08/2020 11:06 [facility] TYPE: Emergency COMPLAINT: - MEDICAL CLEARENCE DIAGNOSES: - Type 2 diabetes mellitus without complications - Allergy status to other drugs, medicaments and biological substances - Old myocardial infarction - Personal history of transient ischemic attack (TIA), and cerebral infarction without residual deficits - Allergy status to sulfonamides - Other marketing education 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 - Allergy status to other drugs, medicaments and biological substances - Gastro-esophageal reflux disease without esophagitis - dry mill operator (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 of 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 [...] substances - Allergy status to sulfonamides - custodial (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 of 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 - Schizoaffective disorder, unspecified - Essential (primary) hypertension - Old myocardial infarction 07/11/2020 12:35 [facility] TYPE: Emergency COMPLAINT: - MEDICAL CLEARANCE 07/03/2020 18:28 [facility] TYPE: Emergency COMPLAINT: - MEDICAL CLEARANCE DIAGNOSES: - custodial (current) use of opiate analgesic - custodial (current) use of oral hypoglycemic [...] Other senior care (current) drug therapy - custodial (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 - Allergy status to sulfonamides - custodial (current) use of oral hypoglycemic [...] and cerebral infarction without residual deficits - dry mill operator (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 - Schizophrenia, unspecified [...] Emergency COMPLAINT: - LIGHT HEADED DIAGNOSES: - 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 mill operator (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 of 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 - Allergy status to sulfonamides - Old myocardial infarction - Schizophrenia, unspecified - Type 2 diabetes mellitus with hyperglycemia - Shortness of breath - Allergy status to other drugs, medicaments and biological substances - Essential (primary) hypertension - Other senior care (current) drug therapy - custodial (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 - Gastro-esophageal reflux disease without esophagitis 05/13/2020 19:47 [facility] TYPE: Emergency COMPLAINT: - MEDICAL CLEARANCE DIAGNOSES: - Allergy status to other drugs, medicaments and biological substances - Other marketing education 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 - custodial (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 of 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 - Encounter for other general examination - Essential (primary) hypertension - Gastro-esophageal reflux disease without esophagitis - custodial (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 - Allergy status to sulfonamides - Old myocardial infarction - Type 2 diabetes mellitus without complications 05/06/2020 06:05 [facility] TYPE: Emergency COMPLAINT: - RAPID HEARTRATE DIAGNOSES: - Gastro-esophageal reflux disease without esophagitis - custodial (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 of 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 - Allergy status to sulfonamides - Essential (primary) hypertension - Allergy status to other drugs, medicaments and biological substances - Type 2 diabetes mellitus without complications - custodial (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 - Palpitations - Old myocardial infarction - Other marketing education 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 05/03/2020 19:00 [facility] TYPE: Emergency COMPLAINT: - RAPID HEART RATE DIAGNOSES: - Allergy status to other drugs, medicaments and biological substances - Allergy status to sulfonamides - Old myocardial infarction - Gastro-esophageal reflux disease without esophagitis - Essential (primary) hypertension - 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 mill operator (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 of 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 - Type 2 diabetes mellitus with hyperglycemia - custodial (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 - Palpitations - Other senior care (current) drug therapy 04/28/2020 18:43 [facility] TYPE: Emergency COMPLAINT: - MEDICAL CLEARANCE DIAGNOSES: - Gastro-esophageal reflux disease without esophagitis - Allergy status to other drugs, medicaments and biological substances - Essential (primary) hypertension - Allergy status to sulfonamides - Type 2 diabetes mellitus without complications - Other marketing education 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 - Hallucinations, unspecified - Encounter for other general examination 04/20/2020 17:25 [facility] TYPE: Emergency COMPLAINT: - SYNCOPE INPATIENT VISIT TRACKING (12 MO.) 04/20/2020 17:26 [...] substances - Paroxysmal atrial fibrillation - Other marketing education 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 - Allergy status to sulfonamides [email or web address]
[2021-04-06] MEDS ORDERED: GEODON20 MG PO (16:11)
[2021-04-06] MEDS ORDERED: TEGRETOL XR100 MG PO (16:12)
[2021-04-06] MEDS ORDERED: DIPHENOXYLATE-1 EACH PO (16:13)
--- NOTE | 2021-04-07 08:20 | EKG ---
[facility] [address] [place] [address] Signed Normal sinus rhythm Left axis deviation Left bundle branch block Abnormal ECG When compared with ECG of 12-MAR-2021 08:18, No significant change was found Confirmed by RONALD DIAZ DO ([id number]) on 04/07/2021 8:20:11 AM Electronically Signed By: RONALD DIAZ DO 04/07/21819 PATIENT NAME: BERNARDA ALARCON AIDE Electrocardiogram DATE OF : 55 PHYSICIAN: RONALD DIAZ DO REPORT #: [id number] REPORT IS CONFIDENTIAL AND NOT TO BE RELEASED WITHOUT AUTHORIZATION
== END 2021-04-06 17:44 | disposition home or self-care (01) ==
LOC: ED 16:02
DX: F41.9 Anxiety disorder, unspecified (principal); R07.89 Other chest pain; I10 Essential (primary) hypertension; K21.9 Gastro-esophageal reflux disease without esophagitis; I25.2 Old myocardial infarction; E11.9 Type 2 diabetes mellitus without complications; Z88.2 Allergy status to sulfonamides; Z88.8 Allergy status to other drugs, medicaments and biological substances; Z79.899 Other long term (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
CPT/HCPCS: 71046; 80053; 83735; 84484; 85025; 93005; 93010; 99285-25

== ENCOUNTER 2021-04-30 17:59 | Emergency (ER) | payer MEDICARE, SELFPAY ==
[~2021-04-30] VITALS: Ht 170.2 cm; Wt 81.7 kg
[~2021-04-30 17:59] MED LIST changes: +DIPHENOXYLATE-1 EACH PO; +GEODON20 MG PO; +TEGRETOL XR100 MG PO
--- OUTSIDE RECORDS SUMMARY | 2021-04-30 18:02 | XMS ---
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 - 2 Visits in 30 Days - [facility] - Has Care Guidelines - PDMP CARE PROVIDERS WAYNE CAMARGO Internal Medicine 09/07/2019-Current PHONE: [phone] SMITH CAMACHO Counselor: Mental Health 05/21/2020-Current PHONE: [phone] Kenny Palafox DO [facility] Current PHONE: [phone] ANGELICA MELVIN Internal Medicine: Pulmonary Disease 05/21/2020-Current PHONE: Unknown Jose Ag [facility] 01/31/2019-Current PHONE: [phone] Care Guidelines exist for the following facilities: [facility] ( 12/08/2020 ) Care History Medical/Surgical 06/02/2020 [facility] - LETTER FROM PATIENT PCP- [...] TO DR DOMINGUEZ IF NEEDED. DR DOMINGUEZ [phone] 05/26/2020 [facility] Patient stated that she was having chest discomfort and called [facility] and they told her to go to ED. Patient has a televisit with Dr. Dominguez on 05/27/2020 at 8:40 am. 05/21/2020 [facility] Patient\T\#39;s therapist, Ashley Lopez, BI ANALYST at [email or web address] has been advised of her overuse of the ED and discussed with her. Also, she has put in a Referral to have a CHW at [email or web address] work with her .\T\nbsp; Patient was just seen by Walk In provider, Ashley Sharp, yesterday, 05/20/2020 for skin issue.\T\ nbsp; Next PCP visit on 05/29/2020. E.D. VISIT COUNT (12 MO.) 19 [facility]. TOTAL 19 NOTE: Visits indicate total known visits. ED/UCC VISIT TRACKING (12 MO.) 04/30/2021 17:59 [place] [place] Emergency COMPLAINT: - BLOOD IN STOOL 04/06/2021 16:[address] [facility] [place] [place] COMPLAINT: - CHEST PAIN DIAGNOSES: - Old myocardial infarction - Essential (primary) hypertension - Anxiety disorder, unspecified - Allergy status to other drugs, medicaments and biological substances - Type 2 diabetes mellitus without complications - Other custodial (current) drug therapy - Gastro-esophageal reflux disease without esophagitis - Other chest pain - Allergy status to sulfonamides 03/12/2021 08:[address] [facility] [place] COMPLAINT: - CHEST PAIN DIAGNOSES: - Allergy status to other drugs, medicaments and biological substances - Type 2 diabetes mellitus without complications - Allergy status to other antibiotic agents - Old myocardial infarction - Precordial pain - Essential (primary) hypertension - Allergy status to sulfonamides - Gastro-esophageal reflux disease without esophagitis - care home (current) use of anticoagulants - Other supervisor 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s (current) drug therapy 03/09/2021 11:33 [place] TYPE: Emergency COMPLAINT: - CHEST PAIN DIAGNOSES: - Other supervisor 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s (current) drug therapy - Essential (primary) hypertension - terminal make up operator (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 of 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 [...] exposure to other viral communicable diseases - terminal make up operator (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 of 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 - Type 2 diabetes mellitus with hyperglycemia - Schizoaffective disorder, unspecified - Other supervisor 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s (current) drug therapy - Essential (primary) hypertension 08/08/2020 11:06 [place] TYPE: Emergency COMPLAINT: - MEDICAL CLEARENCE DIAGNOSES: - Type 2 diabetes mellitus without complications - Allergy status to other drugs, medicaments and biological substances - Old myocardial infarction - Personal history of transient ischemic attack (TIA), and cerebral infarction without residual deficits - Allergy status to sulfonamides - Other custodial (current) drug therapy - Allergy status to other drugs, medicaments and biological substances - Gastro-esophageal reflux disease without esophagitis - terminal make up operator (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 of 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 - Allergy status to sulfonamides - Essential (primary) hypertension - Major depressive disorder, single episode, unspecified 07/28/2020 13:34 [place] TYPE: Emergency COMPLAINT: - MEDICAL CLEARANCE DIAGNOSES: - Allergy status to sulfonamides - Allergy status to other drugs, medicaments and biological substances - Other supervisor 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s (current) drug therapy - Type 2 diabetes mellitus without complications - Gastro-esophageal reflux disease without esophagitis - Allergy status to other drugs, medicaments and biological substances - Allergy status to sulfonamides - terminal make up operator (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 of 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 - Schizoaffective disorder, unspecified - Essential (primary) hypertension - Old myocardial infarction 07/11/2020 12:35 [place] TYPE: Emergency COMPLAINT: - MEDICAL CLEARANCE 07/03/2020 18:28 [place] TYPE: Emergency COMPLAINT: - MEDICAL CLEARANCE DIAGNOSES: - terminal make up operator (current) use of opiate analgesic - terminal make up operator (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 of 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 - Old myocardial infarction - Other supervisor 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s (current) drug therapy - Allergy status to [...] of left hip, initial encounter - Other supervisor 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s (current) drug therapy - Allergy status to sulfonamides 05/25/2020 12:32 [place] TYPE: Emergency COMPLAINT: - CHEST PAIN, DIZZINESS DIAGNOSES: - Gastro-esophageal reflux disease without esophagitis - Old myocardial infarction - Other custodial (current) drug therapy - care home (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 - Allergy status to sulfonamides - terminal make up operator (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 of 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 [...] and cerebral infarction without residual deficits - terminal make up operator (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 - Schizophrenia, unspecified - Type 2 diabetes mellitus with hyperglycemia - Other custodial (current) drug therapy - Gastro-esophageal reflux disease [...] Emergency COMPLAINT: - LIGHT HEADED DIAGNOSES: - terminal make up operator (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 of 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 - Allergy status to sulfonamides - Old myocardial infarction - Schizophrenia, unspecified - Type 2 diabetes mellitus with hyperglycemia - Shortness of breath - Allergy status to other drugs, medicaments and biological substances - Essential (primary) hypertension - Other custodial (current) drug therapy - terminal make up operator (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 - Gastro-esophageal reflux disease without esophagitis 05/13/2020 19:47 [place] TYPE: Emergency COMPLAINT: - MEDICAL CLEARANCE DIAGNOSES: - Allergy status to other drugs, medicaments and biological substances - Other custodial (current) drug therapy - care home (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 of 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 - Encounter for other general examination - Essential (primary) hypertension - Gastro-esophageal reflux disease without esophagitis - terminal make up operator (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 - Allergy status to sulfonamides - Old myocardial infarction - Type 2 diabetes mellitus without complications 05/06/2020 06:05 [place] TYPE: Emergency COMPLAINT: - RAPID HEARTRATE DIAGNOSES: - Gastro-esophageal reflux disease without esophagitis - terminal make up operator (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 of 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 [...] without esophagitis - Essential (primary) hypertension - terminal make up operator (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 of 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 - Type 2 diabetes mellitus with hyperglycemia - terminal make up operator (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 - Palpitations - Other supervisor 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s (current) drug therapy INPATIENT VISIT TRACKING (12 MO.) No inpatient visits to display in this time frame [email or web address]
[2021-04-30] MEDS ORDERED: DICLOFENAC SODI75 MG PO (18:38)
[2021-04-30] MEDS ORDERED: METRONIDAZOLE500 MG PO (18:38)
== END 2021-04-30 21:41 | disposition home or self-care (01) ==
LOC: ED 17:59
DX: A04.72 Enterocolitis due to Clostridium difficile, not specified as recurrent (principal); I10 Essential (primary) hypertension; K21.9 Gastro-esophageal reflux disease without esophagitis; Z88.2 Allergy status to sulfonamides; Z88.8 Allergy status to other drugs, medicaments and biological substances; Z79.899 Other long term (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
CPT/HCPCS: 80053; 85025; 99284

== ENCOUNTER 2021-05-06 15:00 | Emergency (ER) | payer MEDICARE, SELFPAY ==
[~2021-05-06] VITALS: Ht 170.2 cm; Wt 81.7 kg
[~2021-05-06 15:00] MED LIST changes: +METRONIDAZOLE500 MG PO
--- OUTSIDE RECORDS SUMMARY | 2021-05-06 15:02 | XMS ---
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 No recent Security Events currently on file CRITERIA MET - [facility] - 2 Visits in 30 Days - PDMP - [facility] - Has Care Guidelines CARE PROVIDERS WAYNE CAMARGO Internal Medicine 09/07/2019-Current PHONE: [phone] SMITH CAMACHO Counselor: Mental Health 05/21/2020-Current PHONE: [phone] Kenny Palafox DO [facility] Current PHONE: Unknown ANGELICA MELVIN Internal Medicine: Pulmonary Disease 05/21/2020-Current PHONE: Unknown Jose Ag [facility] 01/31/2019-Current PHONE: [phone] Care Guidelines exist for the following facilities: [facility] [place] ( 12/08/2020 ) Care History Medical/Surgical 06/02/2020 [facility] - LETTER FROM PATIENT PCP- [...] TO DR DOMINGUEZ IF NEEDED. DR DOMINGUEZ [phone] 05/26/2020 [facility] Patient stated that she was having chest discomfort and called [facility] and they told her to go to ED. Patient has a televisit with Dr. Dominguez on 05/27/2020 at 8:40 am. 05/21/2020 [facility] Patient\T\#39;s therapist, Ashley Lopez, BAKERY SUPERVISOR at [employer] has been advised of her overuse of the ED and discussed with her. Also, she has put in a Referral to have a CHW at [employer] work with her .\T\nbsp; Patient was just seen by Walk In provider, Ashley Sharp, yesterday, 05/20/2020 for skin issue.\T\ nbsp; Next PCP visit on 05/29/2020. E.D. VISIT COUNT (12 MO.) 19 [facility]. TOTAL 19 NOTE: Visits indicate total known visits. ED/UCC VISIT TRACKING (12 MO.) 05/06/2021 15:[address] [facility] Emergency COMPLAINT: - MEDICAL CLEARANCE 04/30/2021 17:[address] [facility] [place]: Emergency COMPLAINT: - BLOOD IN STOOL DIAGNOSES: - Gastro-esophageal reflux disease without esophagitis - Other [facility] (current) drug therapy - Diarrhea, unspecified - Allergy status to other drugs, medicaments and biological substances - Allergy status to sulfonamides - Essential (primary) hypertension - Enterocolitis due to Clostridium difficile, not specified as recurrent 04/06/2021 16:02 [place] Emergency COMPLAINT: - CHEST PAIN DIAGNOSES: - Old myocardial infarction - Essential (primary) hypertension - Anxiety disorder, unspecified - Allergy status to other drugs, medicaments and biological substances - Type 2 diabetes mellitus without complications - 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 [place] COMPLAINT: - CHEST PAIN DIAGNOSES: - Allergy status to other drugs, medicaments and biological substances - Type 2 diabetes mellitus without complications - Allergy status to other antibiotic agents - Old myocardial infarction - Precordial pain - Essential (primary) hypertension - Allergy status to sulfonamides - Gastro-esophageal reflux disease without esophagitis - oil heaterman (current) use of anticoagulants - Other mcc (current) drug therapy 03/09/2021 11:33 [place] TYPE: Emergency COMPLAINT: - CHEST PAIN DIAGNOSES: - Other mcc (current) drug therapy - Essential (primary) hypertension - oil heaterman (current) use of oral [...] exposure to other viral communicable diseases - oil heaterman (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 of 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 - Type 2 diabetes mellitus with hyperglycemia - Schizoaffective disorder, unspecified - Other mcc (current) drug therapy - [...] - Allergy status to sulfonamides - 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 - Allergy status to other drugs, medicaments and biological substances - Gastro-esophageal reflux disease without esophagitis - nursing home (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 of 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 - Allergy status to sulfonamides - Essential (primary) hypertension - Major depressive disorder, single episode, unspecified 07/28/2020 13:34 [place] TYPE: Emergency COMPLAINT: - MEDICAL CLEARANCE DIAGNOSES: - Allergy status to sulfonamides - Allergy status to other drugs, medicaments and biological substances - Other mcc (current) drug therapy - Type 2 diabetes mellitus without complications - Gastro-esophageal reflux disease without esophagitis - Allergy status to other drugs, medicaments and biological substances - Allergy status to sulfonamides - nursing home (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 of 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 - Schizoaffective disorder, unspecified - Essential (primary) hypertension - Old myocardial infarction 07/11/2020 12:35 [place] TYPE: Emergency COMPLAINT: - MEDICAL CLEARANCE 07/03/2020 18:28 [place] TYPE: Emergency COMPLAINT: - MEDICAL CLEARANCE DIAGNOSES: - oil heaterman (current) use of opiate analgesic - oil heaterman (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 of 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 - Old myocardial infarction - Other mcc [...] other specified factors, subsequent encounter 07/01/2020 07:[address] [facility] [place] TYPE: Emergency COMPLAINT: - L HIP, LEG PAIN DIAGNOSES: - Pain in left hip - Sacrococcygeal disorders, not elsewhere classified 06/24/2020 01:30 [facility] TYPE: Emergency COMPLAINT: - HIP [...] of left hip, initial encounter - 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 - Allergy status to sulfonamides 05/25/2020 12:[address] [facility] TYPE: Emergency COMPLAINT: - CHEST PAIN, DIZZINESS DIAGNOSES: - Gastro-esophageal reflux disease without esophagitis - Old myocardial infarction - Other mcc (current) drug therapy - oil heaterman (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 - Allergy status to sulfonamides - nursing home (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 of 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 [...] and cerebral infarction without residual deficits - oil heaterman (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 - Schizophrenia, unspecified - Type 2 diabetes mellitus with hyperglycemia - Other mcc (current) drug therapy - Gastro-esophageal reflux disease [...] Emergency COMPLAINT: - LIGHT HEADED DIAGNOSES: - oil heaterman (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 of 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 - Allergy status to sulfonamides - Old myocardial infarction - Schizophrenia, unspecified - Type 2 diabetes mellitus with hyperglycemia - Shortness of breath - Allergy status to other drugs, medicaments and biological substances - Essential (primary) hypertension - 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 - nursing home (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 - Gastro-esophageal reflux disease without esophagitis 05/13/2020 19:47 [place] TYPE: Emergency COMPLAINT: - MEDICAL CLEARANCE DIAGNOSES: - Allergy status to other drugs, medicaments and biological substances - 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 - oil heaterman (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 of 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 - Encounter for other general examination - Essential (primary) hypertension - Gastro-esophageal reflux disease without esophagitis - oil heaterman (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 - Allergy status to sulfonamides - Old myocardial infarction - Type 2 diabetes mellitus without complications 05/06/2020 06:05 [place] TYPE: Emergency COMPLAINT: - RAPID HEARTRATE DIAGNOSES: - Gastro-esophageal reflux disease without esophagitis - oil heaterman (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 of 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 - Allergy status to sulfonamides - Essential (primary) hypertension - Allergy status to other drugs, medicaments and biological substances - Type 2 diabetes mellitus without complications - nursing home (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 - Palpitations - Old myocardial infarction - 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 INPATIENT VISIT TRACKING (12 MO.) No inpatient visits to display in this time frame [email or web address]
== END 2021-05-06 16:46 | disposition home or self-care (01) ==
LOC: ED 15:00
DX: R45.851 Suicidal ideations (principal); I10 Essential (primary) hypertension; K21.9 Gastro-esophageal reflux disease without esophagitis; E11.9 Type 2 diabetes mellitus without complications; Z88.2 Allergy status to sulfonamides; Z88.8 Allergy status to other drugs, medicaments and biological substances; Z79.899 Other long term (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
CPT/HCPCS: 80053; 81001; 84443; 85025; 99285; G0480

== ENCOUNTER 2021-05-06 18:08 | Emergency (ER) | payer MEDICARE, SELFPAY ==
[~2021-05-06] VITALS: Ht 170.2 cm; Wt 81.7 kg
--- OUTSIDE RECORDS SUMMARY | 2021-05-06 18:12 | XMS ---
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 No recent Security Events currently on file CRITERIA MET - [facility] - 2 Visits in 30 Days - PDMP - [facility] - Has Care Guidelines - 6 ED Visits in 6 Months CARE PROVIDERS WAYNE CAMARGO Internal Medicine 09/07/2019-Current PHONE: [phone] SMITH CAMACHO Counselor: Mental Health 05/21/2020-Current PHONE: [phone] Kenny Palafox [facility] Current PHONE: Unknown ANGELICA MELVIN Internal Medicine: Pulmonary Disease 05/21/2020-Current PHONE: Unknown Jose Ag [facility] 01/31/2019-Current PHONE: [phone] Care Guidelines exist for the following facilities: [facility] ( 12/08/2020 ) Care History Medical/Surgical 06/02/2020 [facility] - LETTER FROM PATIENT PCP- [...] TO DR DOMINGUEZ IF NEEDED. DR DOMINGUEZ [phone] 05/26/2020 [facility] Patient stated that she was having chest discomfort and called [facility] and they told her to go to ED. Patient has a televisit with Dr. Dominguez on 05/27/2020 at 8:40 am. 05/21/2020 [facility] Patient\T\#39;s therapist, Ashley Lopez, STRADDLE BUGGY OPERATOR at [employer] has been advised of her overuse of the ED and discussed with her. Also, she has put in a Referral to have a CHW at [employer] work with her .\T\nbsp; Patient was just seen by Walk In provider, Ashley Sharp, yesterday, 05/20/2020 for skin issue.\T\ nbsp; Next PCP visit on 05/29/2020. E.D. VISIT COUNT (12 MO.) 20 [facility]. TOTAL 20 NOTE: Visits indicate total known visits. ED/C VISIT TRACKING (12 MO.) 05/06/2021 18:08 [place] TYPE: Emergency COMPLAINT: - SUICIDAL IDEATIONS 05/06/2021 15:01 [place] TYPE: Emergency COMPLAINT: - MEDICAL CLEARANCE 04/30/2021 17:59 [place] TYPE: Emergency COMPLAINT: - BLOOD IN STOOL DIAGNOSES: - Gastro-esophageal reflux disease without esophagitis - Other supervisor 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s (current) drug therapy - Diarrhea, unspecified - Allergy status to other drugs, medicaments and biological substances - Allergy status to sulfonamides - Essential (primary) hypertension - Enterocolitis due to Clostridium difficile, not specified as recurrent 04/06/2021 16:02 [place] TYPE: Emergency COMPLAINT: - CHEST PAIN DIAGNOSES: - Old myocardial infarction - Essential (primary) hypertension - Anxiety disorder, unspecified - Allergy status to other drugs, medicaments and biological substances - Type 2 diabetes mellitus without complications - Other fci (current) drug therapy - Gastro-esophageal reflux disease without esophagitis - Other chest pain - Allergy status to sulfonamides 03/12/2021 08:15 [place] TYPE: Emergency COMPLAINT: - CHEST PAIN DIAGNOSES: - Allergy status to other drugs, medicaments and biological substances - Type 2 diabetes mellitus without complications - Allergy status to other antibiotic agents - Old myocardial infarction - Precordial pain - Essential (primary) hypertension - Allergy status to sulfonamides - Gastro-esophageal reflux disease without esophagitis - oysterman (current) use of anticoagulants - Other supervisor 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s (current) drug therapy 03/09/2021 11:33 [place] TYPE: Emergency COMPLAINT: - CHEST PAIN DIAGNOSES: - Other supervisor 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s (current) drug therapy - Essential (primary) hypertension - penitentiary (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 of 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 - [...] exposure to other viral communicable diseases - penitentiary (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 of 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 - [...] - Allergy status to sulfonamides - Other fci (current) drug therapy - Allergy status to other drugs, medicaments and biological substances - Gastro-esophageal reflux disease without esophagitis - oysterman (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 of 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 - Allergy status to sulfonamides - Essential (primary) hypertension - Major depressive disorder, single episode, unspecified 07/28/2020 13:34 JAEL [place] TYPE: Emergency COMPLAINT: - MEDICAL CLEARANCE DIAGNOSES: - Allergy status to sulfonamides - Allergy status to other drugs, medicaments and biological substances - Other fci (current) drug therapy - Type 2 diabetes mellitus without complications - Gastro-esophageal reflux disease without esophagitis - Allergy status to other drugs, medicaments and biological substances - Allergy status to sulfonamides - oysterman (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 of 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 - Schizoaffective disorder, unspecified - Essential (primary) hypertension - Old myocardial infarction 07/11/2020 12:35 [place] TYPE: Emergency COMPLAINT: - MEDICAL CLEARANCE 07/03/2020 18:28 [place] TYPE: Emergency COMPLAINT: - MEDICAL CLEARANCE DIAGNOSES: - oysterman (current) use of opiate analgesic - oysterman (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 of 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 - Old myocardial infarction - Other fci (current) drug therapy - Allergy status to [...] of left hip, initial encounter - Other fci (current) drug therapy - Allergy status to sulfonamides 05/25/2020 12:32 [place] TYPE: Emergency COMPLAINT: - CHEST PAIN, DIZZINESS DIAGNOSES: - Gastro-esophageal reflux disease without esophagitis - Old myocardial infarction - Other fci (current) drug therapy - penitentiary (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 - Allergy status to sulfonamides - oysterman (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 of 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 - [...] and cerebral infarction without residual deficits - penitentiary (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 - Schizophrenia, unspecified - Type 2 diabetes mellitus with hyperglycemia - Other fci (current) drug therapy - Gastro-esophageal reflux disease [...] Emergency COMPLAINT: - LIGHT HEADED DIAGNOSES: - penitentiary (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 of 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 - Allergy status to sulfonamides - Old myocardial infarction - Schizophrenia, unspecified - Type 2 diabetes mellitus with hyperglycemia - Shortness of breath - Allergy status to other drugs, medicaments and biological substances - Essential (primary) hypertension - Other supervisor 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s (current) drug therapy - oysterman (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 - Gastro-esophageal reflux disease without esophagitis 05/13/2020 19:47 [place] TYPE: Emergency COMPLAINT: - MEDICAL CLEARANCE DIAGNOSES: - Allergy status to other drugs, medicaments and biological substances - Other supervisor 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s (current) drug therapy - penitentiary (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 of 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 - Encounter for other general examination - Essential (primary) hypertension - Gastro-esophageal reflux disease without esophagitis - oysterman (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 - Allergy status to sulfonamides - Old myocardial infarction - Type 2 diabetes mellitus without complications 05/06/2020 06:05 [place] TYPE: Emergency COMPLAINT: - RAPID HEARTRATE DIAGNOSES: - Gastro-esophageal reflux disease without esophagitis - penitentiary (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 of 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 - Allergy status to sulfonamides - Essential (primary) hypertension - Allergy status to other drugs, medicaments and biological substances - Type 2 diabetes mellitus without complications - penitentiary (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 - Palpitations - Old myocardial infarction - Other fci (current) drug therapy INPATIENT VISIT TRACKING (12 MO.) No inpatient visits to display in this time frame [email or web address]
== END 2021-05-07 01:00 | disposition home or self-care (01) ==
LOC: ED 18:08
DX: F22 Delusional disorders (principal); F25.9 Schizoaffective disorder, unspecified; I10 Essential (primary) hypertension; K21.9 Gastro-esophageal reflux disease without esophagitis; E11.9 Type 2 diabetes mellitus without complications; Z88.2 Allergy status to sulfonamides; Z88.8 Allergy status to other drugs, medicaments and biological substances; Z79.899 Other long term (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
CPT/HCPCS: 80053; 80156; 81001; 84443; 85025; 99285; G0480

== ENCOUNTER 2021-05-08 12:03 | Emergency (ER) | payer MEDICARE, SELFPAY ==
[~2021-05-08] VITALS: Ht 152.4 cm; Wt 127.0 kg
--- OUTSIDE RECORDS SUMMARY | 2021-05-08 12:04 | XMS ---
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 No recent Security Events currently on file CRITERIA MET - 6 ED Visits in 6 Months - [facility] - 2 Visits in 30 Days - [facility] - Has Care Guidelines - PDMP CARE PROVIDERS WAYNE CAMARGO Internal Medicine 09/07/2019-Current PHONE: [phone] SMITH CAMACHO Counselor: Mental Health 05/21/2020-Current PHONE: [phone] Kenny Palafox [facility] Current PHONE: Unknown ANGELICA MELVIN Internal Medicine: Pulmonary Disease 05/21/2020-Current PHONE: Unknown Jose Ag [facility] 01/31/2019-Current PHONE: [phone] Care Guidelines exist for the following facilities: [facility], [place] ( 12/08/2020 ) Care History Medical/Surgical 06/02/2020 [...] TO DR DOMINGUEZ IF NEEDED. DR DOMINGUEZ [phone] 05/26/2020 [facility] Patient stated that she was having chest discomfort and called [facility] and they told her to go to ED. Patient has a televisit with Dr. Dominguez on 05/27/2020 at 8:40 am. 05/21/2020 [facility] Patient\T\#39;s therapist, Ashley Lopez, HOME CARE NURSE at [facility] has been advised of her overuse of the ED and discussed with her. Also, she has put in a Referral to have a CHW at [facility] work with her .\T\nbsp; Patient was just seen by Walk In provider, Ashley Sharp, yesterday, 05/20/2020 for skin issue.\T\ nbsp; Next PCP visit on 05/29/2020. E.D. VISIT COUNT (12 MO.) 20 [facility]. TOTAL 20 NOTE: Visits indicate total known visits. ED/C VISIT TRACKING (12 MO.) 05/08/2021 12:03 [facility] [place] Emergency COMPLAINT: - OD 05/06/2021 18:08 [facility] [place] [place] COMPLAINT: - SUICIDAL IDEATIONS 05/06/2021 15:01 [facility] [place] [place] TYPE: Emergency COMPLAINT: - MEDICAL CLEARANCE 04/30/2021 17:59 [facility] [place] [place] TYPE: Emergency COMPLAINT: - BLOOD IN STOOL DIAGNOSES: - Gastro-esophageal reflux disease without esophagitis - Other ocean transportation intermediary (current) drug therapy - Diarrhea, unspecified - Allergy status to other drugs, medicaments and biological substances - Allergy status to sulfonamides - Essential (primary) hypertension - Enterocolitis due to Clostridium difficile, not specified as recurrent 04/06/2021 16:02 [facility] [place] TYPE: Emergency COMPLAINT: - CHEST PAIN DIAGNOSES: - Old myocardial infarction - Essential (primary) hypertension - Anxiety disorder, unspecified - Allergy status to other drugs, medicaments and biological substances - Type 2 diabetes mellitus without complications - [place] [facility] [place] drug therapy - Gastro-esophageal reflux disease [...] terminal make up operator (current) use of anticoagulants - Other ocean transportation intermediary (current) drug therapy 03/09/2021 11:33 [facility] [place] TYPE: Emergency COMPLAINT: - CHEST PAIN DIAGNOSES: - Other ocean transportation intermediary (current) drug therapy - Essential (primary) hypertension [...] hyperglycemia - Schizoaffective disorder, unspecified - Other ocean transportation intermediary (current) drug therapy - Essential (primary) hypertension 08/08/2020 11:06 [facility] [place] TYPE: Emergency COMPLAINT: - MEDICAL CLEARENCE DIAGNOSES: - Type 2 diabetes mellitus without complications - Allergy status to other drugs, medicaments and biological substances - Old myocardial infarction - Personal history of transient ischemic attack (TIA), and cerebral infarction without residual deficits - Allergy status to sulfonamides - [place] [facility] [place]current[place] drug therapy - Allergy status to other drugs, medicaments and biological substances - Gastro-esophageal reflux disease without esophagitis - MCC (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 of 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 - Allergy status to sulfonamides - Essential (primary) hypertension - Major depressive disorder, single episode, unspecified 07/28/2020 13:34 [facility] [place] TYPE: Emergency COMPLAINT: - MEDICAL CLEARANCE DIAGNOSES: - Allergy status to sulfonamides - Allergy status to other drugs, medicaments and biological substances - [place] [facility] [place] (current[place] drug therapy - Type 2 diabetes [...] operator (current) use of opiate analgesic - MCC (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 of 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 - Old myocardial infarction - Other [place] [facility] (current) drug therapy - Allergy status to [...] of left hip, initial encounter - Other ocean transportation intermediary (current) drug therapy - Allergy status to sulfonamides 05/25/2020 12:32 [facility] [place] TYPE: Emergency COMPLAINT: - CHEST PAIN, DIZZINESS DIAGNOSES: - Gastro-esophageal reflux disease without esophagitis - Old myocardial infarction - Other ocean transportation intermediary (current) drug therapy - terminal make up [...] and cerebral infarction without residual deficits - MCC (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 - Schizophrenia, unspecified - Type 2 diabetes mellitus with hyperglycemia - Other ocean transportation intermediary (current) drug therapy - Gastro-esophageal reflux disease [...] substances - Essential (primary) hypertension - Other ocean transportation intermediary (current) drug therapy - terminal make up operator (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 - Gastro-esophageal reflux disease without esophagitis 05/13/2020 19:47 [facility] [place] TYPE: Emergency COMPLAINT: - MEDICAL CLEARANCE DIAGNOSES: - Allergy status to other drugs, medicaments and biological substances - Other [place] [facility] [place] (current) drug therapy - terminal make up operator (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 of 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 - Encounter for other general examination - Essential (primary) hypertension - Gastro-esophageal reflux disease without esophagitis - terminal make up operator (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 - Allergy status to sulfonamides - Old myocardial infarction - Type 2 diabetes mellitus without complications INPATIENT VISIT TRACKING (12 MO.) No inpatient visits to display in this time frame [email or web address]
[2021-05-09] MEDS ORDERED: GLIPIZIDE ER2.5 MG PO (15:25)
--- NOTE | 2021-05-09 18:55 | EKG ---
[facility] [address] [facility] [address] [place] [address] Signed Normal sinus rhythm Left axis deviation Left bundle branch block Abnormal ECG When compared with ECG of 06-APR-2021 16:02, No significant change was found Confirmed by PHIL SAMAYOA MD ([id number]) on 05/09/2021 6:55:34 PM Electronically Signed By: PHIL SAMAYOA MD 05/09/21 1855 PATIENT NAME: BERNARDA ALARCON AIDE Electrocardiogram DATE OF : 55 PHYSICIAN: PHIL SAMAYOA MD REPORT #: [id number] REPORT IS CONFIDENTIAL AND NOT TO BE RELEASED WITHOUT AUTHORIZATION
--- NOTE | 2021-05-09 18:56 | EKG ---
[facility] [address] [facility] [place] [address] Signed Normal sinus rhythm Moderate voltage criteria for LVH, may be normal variant T wave abnormality, consider anterior ischemia Abnormal ECG When compared with ECG of 08-MAY-2021 12:21, (Unconfirmed) Left bundle branch block is no longer present Confirmed by PHIL SAMAYOA MD ([id number]) on 05/09/2021 6:56:00 PM Electronically Signed By: PHIL SAMAYOA MD 05/09/21 1856 PATIENT NAME: BERNARDA ALARCON AIDE Electrocardiogram DATE OF : 55 PHYSICIAN: PHIL SAMAYOA MD REPORT #: [id number] REPORT IS CONFIDENTIAL AND NOT TO BE RELEASED WITHOUT AUTHORIZATION
== END 2021-05-10 13:18 | disposition short-term general hospital (02) ==
LOC: ED 12:03
DX: T50.901A Poisoning by unspecified drugs, medicaments and biological substances, accidental (unintentional), initial encounter (principal); F29 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ogical condition; E11.65 Type 2 diabetes mellitus with hyperglycemia; Z20.822 Contact with and (suspected) exposure to COVID-19; I10 Essential (primary) hypertension; K21.9 Gastro-esophageal reflux disease without esophagitis; Z88.2 Allergy status to sulfonamides; Z88.8 Allergy status to other drugs, medicaments and biological substances; Z88.1 Allergy status to other antibiotic agents; Z79.899 Other long term (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
CPT/HCPCS: 51701; 80053; 80156; 81001; 84443; 85025; 93005; 93010; 99285-25; C9803; G0480; J7030; U0003

== ENCOUNTER 2021-12-20 02:27 | Emergency (ER) | payer MEDICARE ==
[~2021-12-20] VITALS: Ht 170.2 cm; Wt 104.4 kg
[~2021-12-20 02:27] MED LIST changes: +GLIPIZIDE ER2.5 MG PO
--- OUTSIDE RECORDS SUMMARY | 2021-12-20 02:30 | XMS ---
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 Events No recent Security Events currently on file CRITERIA MET - [facility] CARE PROVIDERS WAYNE CAMARGO Internal Medicine 09/07/2019-Current PHONE: Unknown SMITH CAMACHO Counselor: Mental Health 05/21/2020-Current PHONE: [phone] Kenny Palafox DO [facility] Current PHONE: Unknown ANGELICA MELVIN Internal Medicine: Pulmonary Disease 05/21/2020-Current PHONE: Unknown Jose Ag Family [facility] 01/31/2019-Current PHONE: [phone] Guidelines Source: [email or web address] - [place] Guidelines Date: 07/06/2021 Care Coordination: Mental health services are being provided by [email or web address].\T\nbsp;Please contact [email or web address] with mental health concerns.\T\nbsp;[place]: \T\nbsp;[place]: [phone]. Care History Medical/Surgical 06/02/2020 [facility] - LETTER FROM PATIENT PCP- DR [...] TO DR DOMINGUEZ IF NEEDED. DR DOMINGUEZ [phone] 05/26/2020 [facility] Patient stated that she was having chest discomfort and called [facility] and they told her to go to ED. Patient has a televisit with Dr. Dominguez on 05/27/2020 at 8:40 am. 05/21/2020 [facility] Patient\T\#39;s therapist, Ashley Lopez, COGNOS REPORT DEVELOPER at [facility] has been advised of her overuse of the ED and discussed with her. Also, she has put in a Referral to have a CHW at [facility] work with her .\T\nbsp; Patient was just seen by Walk In provider, Ashley Sharp, yesterday, 05/20/2020 for skin issue.\T\ nbsp; Next PCP visit on 05/29/2020. [facility] T[facility] NOTE: Visits indicate total known visits. ED/UCC VISIT TRACKING (12 MO.) 12/20/2021 02:27 [facility] [place] [place] COMPLAINT: - BACK PAIN 05/08/2021 12:[address] [facility] [place] TYPE: Emergency COMPLAINT: - OD DIAGNOSES: - Type 2 diabetes mellitus with hyperglycemia - Allergy status to other drugs, medicaments and biological substances - Allergy status to other antibiotic agents - Poisoning by unspecified drugs, medicaments and biological substances, accidental (unintentional), initial encounter - Allergy status to sulfonamides - 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ogical condition - Gastro-esophageal reflux disease without esophagitis - Other detention (current) drug therapy - Essential (primary) hypertension 05/06/2021 18:[address] [facility] [place] TYPE: Emergency COMPLAINT: - SUICIDAL IDEATIONS DIAGNOSES: - Delusional disorders - Gastro-esophageal reflux disease without esophagitis - Allergy status to sulfonamides - Schizoaffective disorder, unspecified - Other ferry terminal agent (current) drug therapy - Schizoaffective disorder, unspecified - Allergy status to other drugs, medicaments and biological substances - Type 2 diabetes mellitus without complications - Essential (primary) hypertension - Delusional disorders 05/06/2021 15:[address] [facility] [place] TYPE: Emergency COMPLAINT: - MEDICAL CLEARANCE DIAGNOSES: - Suicidal ideations - Allergy status to other drugs, medicaments and biological substances - Essential (primary) hypertension - Gastro-esophageal reflux disease without esophagitis - Allergy status to sulfonamides - Type 2 diabetes mellitus without complications - Other ferry terminal agent (current) drug therapy 04/30/2021 17:59 [facility] [place] [facility] COMPLAINT: - BLOOD IN STOOL DIAGNOSES: - Gastro-esophageal reflux disease without esophagitis - Other ferry terminal agent (current) drug therapy - Diarrhea, unspecified - Allergy status to other drugs, medicaments and biological substances - Allergy status to sulfonamides - Essential (primary) hypertension - Enterocolitis due to Clostridium difficile, not specified as recurrent 04/06/2021 16:[address] 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 - Other ferry terminal agent (current) drug therapy 03/09/2021 11:33 [facility] [place] TYPE: Emergency COMPLAINT: - CHEST PAIN DIAGNOSES: - Other ferry terminal agent (current) drug therapy - Essential (primary) hypertension - [facility] (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 of 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 - Old myocardial infarction - Chest pain, unspecified - Type 2 diabetes mellitus without complications - Allergy status to other drugs, medicaments and biological substances - Allergy status to sulfonamides - Gastro-esophageal reflux disease without esophagitis INPATIENT VISIT TRACKING (12 MO.) 05/10/2021 16:54 [facility] [place] TYPE: Psychiatry DIAGNOSES: - Bi polar type - Schizoaffective disorder, unspecified - schizoaffective disorder - Poisoning by multiple unspecified drugs, medicaments and biological substances, intentional self-harm, sequela [email or web address]
[2021-12-20] MEDS ORDERED: ABILIFY5 MG PO (02:49)
[2021-12-20] MEDS ORDERED: NEURONTIN100 MG PO (02:50)
== END 2021-12-20 03:15 | disposition home or self-care (01) ==
LOC: ED 02:27
DX: R07.81 Pleurodynia (principal); M25.552 Pain in left hip; I10 Essential (primary) hypertension; E07.9 Disorder of thyroid, unspecified; K21.9 Gastro-esophageal reflux disease without esophagitis; E11.9 Type 2 diabetes mellitus without complications; Z86.73 Personal history of transient ischemic attack (TIA), and cerebral infarction without residual deficits; Z88.2 Allergy status to sulfonamides; Z88.8 Allergy status to other drugs, medicaments and biological substances; Z79.899 Other long term (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
CPT/HCPCS: 99283

== ENCOUNTER 2022-05-03 11:38 | Emergency (ER) | payer MEDICARE ==
[~2022-05-03] VITALS: Ht 170.2 cm; Wt 104.3 kg
[~2022-05-03 11:38] MED LIST changes: +NEURONTIN100 MG PO
--- OUTSIDE RECORDS SUMMARY | 2022-05-03 11:40 | XMS ---
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 Security Die Maker Electronic Events 1 event(s) in the past 18 months Most recent security events: Elopement at [facility] 04/08/2022 15:11 - Patient eloped before treatment completed. - Patient with suicidal and/or homicidal ideations eloped. - Patient eloped with IV in place. Details: PATIENT LWBS CRITERIA MET - [facility] - 2 Visits in 30 Days - PDMP - [facility] - Has Care Guidelines CARE PROVIDERS WAYNE CAMARGO Internal Medicine 09/07/2019-Current PHONE: Unknown SMITH CAMACHO Counselor: Mental Health 05/21/2020-Current PHONE: [phone] Kenny Palafox [facility] Current PHONE: Unknown ANGELICA MELVIN Internal Medicine: Pulmonary Disease 05/21/2020-Current PHONE: Unknown Jose Ag [facility] 01/31/2019-Current PHONE: [phone] Guidelines Source: [facility] [facility] - [place] Guidelines Date: 07/06/2021 Care Coordination: Mental health services are being provided by [employer].\T\nbsp;Please contact [employer] with mental health concerns.\T\nbsp;[place]: \T\nbsp;[place]: [phone]. Care History Medical/Surgical 12/21/2021 [facility] - Patient is currently established with [facility]. If patient is seen in the ED during business hours. Please contact CHWs at [facility]. Care Recommendation: If this patient has had 5 or more Emergency Department visits in the last 12 months.\T\nbsp;Patient will require education on the scope and purpose of the ED as an acute care provider not a Primary Care Provider and should not be utilized for chronic conditions.\T\nbsp; These are guidelines and the provider should exercise clinical judgment when providing care. 06/02/2020 [facility] - LETTER FROM PATIENT PCP- DR DOMINGUEZ [...] TO DR DOMINGUEZ IF NEEDED. DR DOMINGUEZ [phone] 05/26/2020 [facility] Patient stated that she was having chest discomfort and called [facility] and they told her to go to ED. Patient has a televisit with Dr. Dominguez on 05/27/2020 at 8:40 am. E.D. VISIT COUNT (12 MO.) 7 [facility]. TOTAL 7 NOTE: Visits indicate total known visits. ED/UCC VISIT TRACKING (12 MO.) 05/03/2022 11:39 [facility] [place] TYPE: Emergency COMPLAINT: - MEDICAL CLEARANCE 04/20/2022 14:14 [facility] [place] TYPE: Emergency COMPLAINT: - MEDICAL CLEARANCE DIAGNOSES: - Gastro-esophageal reflux disease without esophagitis - Essential (primary) hypertension - Other emt 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 (current) drug therapy - Schizoaffective disorder, unspecified - Contact with and (suspected) exposure to COVID-19 - Suicidal ideations - Allergy status to sulfonamides - Allergy status to other drugs, medicaments and biological substances 04/08/2022 15:11 [facility] [place] TYPE: Emergency COMPLAINT: - SUICIDAL IDEATIONS 12/20/2021 02:27 [facility] [place] TYPE: Emergency COMPLAINT: - BACK PAIN DIAGNOSES: - Allergy status to sulfonamides - Essential (primary) hypertension - Other emt 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 (current) drug therapy - Pleurodynia - Type 2 diabetes mellitus without complications - Pain in left hip - Disorder of thyroid, unspecified - Gastro-esophageal reflux disease without esophagitis - Allergy status to other drugs, medicaments and biological substances - Personal history of transient ischemic attack (TIA), and cerebral infarction without residual deficits 05/08/2021 12:03 [facility] [place] TYPE: Emergency COMPLAINT: - OD DIAGNOSES: [...] - Essential (primary) hypertension 05/06/2021 18:08 [facility] [place] TYPE: Emergency COMPLAINT: - SUICIDAL IDEATIONS DIAGNOSES: - Delusional disorders - Gastro-esophageal reflux disease without esophagitis - Allergy status to sulfonamides - Schizoaffective disorder, unspecified - [place] [facility] [place] drug therapy - Schizoaffective disorder, unspecified - Allergy status to other drugs, medicaments and biological substances - Type 2 diabetes mellitus without complications - Essential (primary) hypertension - Delusional disorders 05/06/2021 15:01 [facility] [place] TYPE: Emergency COMPLAINT: - MEDICAL CLEARANCE DIAGNOSES: - Suicidal ideations - Allergy status to other drugs, medicaments and biological substances - Essential (primary) hypertension - Gastro-esophageal reflux disease without esophagitis - Allergy status to sulfonamides - Type 2 diabetes mellitus without complications - Other emt 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 (current) drug therapy INPATIENT VISIT TRACKING (12 MO.) 05/10/2021 16:54 [facility] [place] TYPE: Psychiatry DIAGNOSES: - Bi polar type - Schizoaffective disorder, unspecified - schizoaffective disorder - Poisoning by multiple unspecified drugs, medicaments and biological substances, intentional self-harm, sequela [email or web address]
[2022-05-26] MEDS ORDERED: ZYPREXA15 MG PO (20:09)
== END 2022-05-03 15:56 | disposition home or self-care (01) ==
LOC: ED 11:38
DX: T43.592A Poisoning by other antipsychotics and neuroleptics, intentional self-harm, initial encounter (principal); E11.65 Type 2 diabetes mellitus with hyperglycemia; I10 Essential (primary) hypertension; Z88.2 Allergy status to sulfonamides; Z88.8 Allergy status to other drugs, medicaments and biological substances; Z79.899 Other long term (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
CPT/HCPCS: 36415; 80048; 80053; 81001; 84443; 85025; 99285; G0480

== ENCOUNTER 2022-05-10 06:07 | Emergency (ER) | payer MEDICARE ==
[~2022-05-10] VITALS: Ht 170.2 cm; Wt 104.3 kg
--- OUTSIDE RECORDS SUMMARY | 2022-05-10 06:10 | XMS ---
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 - Patient with suicidal and/or homicidal ideations eloped. - Patient eloped with IV in place. Details: PATIENT LWBS CRITERIA MET - PDMP - [facility] - Has Care Guidelines - [facility] - 2 Visits in 30 Days CARE PROVIDERS WAYNE CAMARGO Internal Medicine 09/07/2019-Current PHONE: Unknown SMITH CAMACHO Counselor: Mental Health 05/21/2020-Current PHONE: [phone] Kenny Palafox [facility] Current PHONE: Unknown ANGELICA MELVIN Internal Medicine: Pulmonary Disease 05/21/2020-Current PHONE: Unknown Jose Ag [facility] 01/31/2019-Current PHONE: [phone] Guidelines Source: [email or web address] - [place] Guidelines Date: 07/06/2021 Care Coordination: Mental health services are being provided by [email or web address].\T\nbsp;Please contact [email or web address] with mental health concerns.\T\nbsp;[place]: [phone]\T\nbsp;[place]: [phone]. Care History Medical/Surgical 12/21/2021 [facility] - Patient is currently established with [facility]. If patient is seen in the ED during business hours. Please contact CHWs at [facility]. Care Recommendation: If this patient has had 5 or more Emergency Department visits in the last 12 months.\T\nbsp;Patient will require education on the scope and purpose of the ED as an acute care provider not a Primary Care Provider and should not be utilized for chronic conditions.\T\nbsp; These are guidelines and the provider should exercise clinical judgment when providing care. 06/02/2020 [facility] - LETTER FROM PATIENT PCP- DR [...] TO DR DOMINGUEZ IF NEEDED. DR DOMINGUEZ [phone] 05/26/2020 [facility] Patient stated that she was having chest discomfort and called [facility] and they told her to go to ED. Patient has a televisit with Dr. Dominguez on 05/27/2020 at 8:40 am. E.D. VISIT COUNT (12 MO.) 5 [facility]. TOTAL 5 NOTE: Visits indicate total known visits. 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 04/20/2022 14:14 [facility] [place] TYPE: Emergency COMPLAINT: - MEDICAL CLEARANCE DIAGNOSES: - Gastro-esophageal reflux disease without esophagitis - Essential (primary) hypertension - Other correction (current) drug therapy - Schizoaffective disorder, unspecified [...] sulfonamides - Essential (primary) hypertension - Other truck terminal manager (current) drug therapy - Pleurodynia - Type 2 diabetes mellitus without complications - Pain in left hip - Disorder of thyroid, unspecified - Gastro-esophageal reflux disease without esophagitis - Allergy status to other drugs, medicaments and biological substances - Personal history of transient ischemic attack (TIA), and cerebral infarction without residual deficits INPATIENT VISIT TRACKING (12 MO.) 05/10/2021 16:54 [facility] [place] TYPE: Psychiatry DIAGNOSES: - Bi polar type - Schizoaffective disorder, unspecified - schizoaffective disorder - Poisoning by multiple unspecified drugs, medicaments and biological substances, intentional self-harm, sequela [email or web address]
[2022-05-10] MEDS ORDERED: FLUVOXAMINE MA100 MG PO (06:28)
[2022-05-10] MEDS ORDERED: MIRTAZAPINE45 MG PO (06:29)
[2022-05-10] MEDS ORDERED: GLIPIZIDE ER2.5 MG PO (06:29)
[2022-05-10] MEDS ORDERED: GABAPENTIN600 MG PO (10:01)
== END 2022-05-10 15:30 ==
LOC: ED 06:07
DX: F25.9 Schizoaffective disorder, unspecified (principal); E11.65 Type 2 diabetes mellitus with hyperglycemia; R45.851 Suicidal ideations; F29 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ogical condition; I10 Essential (primary) hypertension; K21.9 Gastro-esophageal reflux disease without esophagitis; E11.9 Type 2 diabetes mellitus without complications; Z20.822 Contact with and (suspected) exposure to COVID-19; Z86.73 Personal history of transient ischemic attack (TIA), and cerebral infarction without residual deficits; Z88.2 Allergy status to sulfonamides; Z88.8 Allergy status to other drugs, medicaments and biological substances; Z79.899 Other long term (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; Z79.84 Long term (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 of 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
CPT/HCPCS: 36415; 80053; 81001; 84443; 85025; 87502; 99285; C9803; G0480; U0003

== ENCOUNTER 2022-06-07 11:33 | Emergency (ER) | payer MEDICARE ==
[~2022-06-07] VITALS: Ht 170.2 cm; Wt 104.3 kg
[~2022-06-07 11:33] MED LIST changes: +FLUVOXAMINE MA100 MG PO; +MIRTAZAPINE45 MG PO; +ZYPREXA15 MG PO
--- OUTSIDE RECORDS SUMMARY | 2022-06-07 11:40 | XMS ---
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 - Patient with suicidal and/or homicidal ideations eloped. - Patient eloped with IV in place. Details: PATIENT LWBS CRITERIA MET - 6 ED Visits in 6 Months - [facility] - Has Care Guidelines - [facility] - 2 Visits in 30 Days CARE PROVIDERS WAYNE CAMARGO Internal Medicine 09/07/2019-Current PHONE: Unknown SMITH CAMACHO Counselor: Mental Health 05/21/2020-Current PHONE: [phone] Kenny Palafox [facility] Current PHONE: Unknown ANGELICA MELVIN Internal Medicine: Pulmonary Disease 05/21/2020-Current PHONE: Unknown Jose Ag Family [facility] 01/31/2019-Current PHONE: [phone] Guidelines Source: [facility] [place] Guidelines Date: 07/06/2021 Care Coordination: Mental health services are being provided by [facility].\T\nbsp;Please contact [facility] with mental health concerns.\T\nbsp;[place]: \T\nbsp;[place]: [phone]. Care History Medical/Surgical 12/21/2021 [facility] - Patient is currently established with [facility]. If patient is seen in the ED during business hours. Please contact CHWs at [facility]. Care Recommendation: If this patient has had 5 or more Emergency Department visits in the last 12 months.\T\nbsp;Patient will require education on the scope and purpose of the ED as an acute care provider not a Primary Care Provider and should not be utilized for chronic conditions.\T\nbsp; These are guidelines and the provider should exercise clinical judgment when providing care. 06/02/2020 [facility] - LETTER FROM PATIENT PCP- DR [...] TO DR DOMINGUEZ IF NEEDED. DR DOMINGUEZ [phone] 05/26/2020 [facility] Patient stated that she was having chest discomfort and called [facility] and they told her to go to ED. Patient has a televisit with Dr. Dominguez on 05/27/2020 at 8:40 am. E.D. VISIT COUNT (12 MO.) 7 [facility]. TOTAL 7 NOTE: Visits indicate total known visits. ED/UCC VISIT TRACKING (12 MO.) 06/07/2022 11:34 [facility] [place] TYPE: Emergency COMPLAINT: - FALL 05/26/2022 12:41 [facility] [place] TYPE: Emergency COMPLAINT: - OD INTENTIONAL DIAGNOSES: - Allergy status to sulfonamides - Major depressive disorder, single episode, unspecified - Essential (primary) hypertension - Unspecified place or not applicable - Type 2 diabetes mellitus without complications - Gastro-esophageal reflux disease without esophagitis - 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 accountant (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 of 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 - Schizoaffective disorder, unspecified - 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 card tender (current) drug therapy - Allergy status to narcotic agent - Allergy status to other drugs, medicaments and biological substances - Poisoning by selective serotonin reuptake inhibitors, accidental (unintentional), initial encounter 05/10/2022 06:07 [facility] [place] TYPE: Emergency COMPLAINT: - ALTERED DIAGNOSES: - Personal history of transient ischemic attack (TIA), and cerebral infarction without residual deficits - Type 2 diabetes mellitus with hyperglycemia - Contact with and (suspected) exposure to COVID-19 - Allergy status to other drugs, medicaments and biological substances - Suicidal ideations - Schizoaffective disorder, unspecified - Allergy status to sulfonamides - 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 card tender (current) drug therapy - FPC (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 of 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 - Gastro-esophageal reflux disease without esophagitis - 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ogical condition - Essential (primary) hypertension - Type 2 diabetes mellitus without complications 05/03/2022 11:39 [facility] [place] TYPE: Emergency COMPLAINT: - MEDICAL CLEARANCE DIAGNOSES: - Other longterm (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 - Hyperglycemia, unspecified - Poisoning by other antipsychotics and neuroleptics, intentional self-harm, initial encounter - Essential (primary) hypertension - Type 2 diabetes mellitus with hyperglycemia - Allergy status to sulfonamides - Allergy status to other drugs, medicaments and biological substances 04/20/2022 14:14 [facility] [place] TYPE: Emergency COMPLAINT: - MEDICAL CLEARANCE DIAGNOSES: - Allergy status to sulfonamides - Contact with and (suspected) exposure to COVID-19 - Other longterm (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 - Gastro-esophageal reflux disease without esophagitis - Allergy status to other drugs, medicaments and biological substances - Suicidal ideations - Schizoaffective disorder, unspecified - Essential (primary) hypertension 04/08/2022 15:11 [facility] [place] TYPE: Emergency COMPLAINT: - SUICIDAL IDEATIONS 12/20/2021 02:27 [facility] [place] TYPE: Emergency COMPLAINT: - BACK PAIN DIAGNOSES: - Allergy status to other drugs, medicaments and biological substances - Disorder of thyroid, unspecified - Type 2 diabetes mellitus without complications - Other longterm (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 - Personal history of transient ischemic attack (TIA), and cerebral infarction without residual deficits - Allergy status to sulfonamides - Gastro-esophageal reflux disease without esophagitis - Pain in left hip - Pleurodynia - Essential (primary) hypertension INPATIENT VISIT TRACKING (12 MO.) 05/10/2022 18:40 [facility] [place] TYPE: Psychiatric Services DIAGNOSES: 0. 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ogical condition 0. Major depressive disorder, recurrent severe without psychotic features 1. Major depressive disorder, recurrent severe without psychotic features 1. Schizoaffective disorder, bipolar type 2. Underdosing of tetracyclic antidepressants, subsequent encounter 2. Patient's other noncompliance with medication regimen 2. Essential (primary) hypertension 2. Gastro-esophageal reflux disease without esophagitis 2. Transient cerebral ischemic attack, unspecified 2. Type 2 diabetes mellitus without complications 2. Underdosing of iminostilbenes, subsequent encounter 2. Personal history of suicidal behavior 2. Cardiomegaly 2. Bariatric surgery status 2. Suicidal ideations 2. Other specific personality disorders [email or web address]
[2022-06-07] MEDS ORDERED: HYDROCODON-ACE1 EA10 PO (15:50)
== END 2022-06-07 16:12 | disposition home or self-care (01) ==
LOC: ED 11:33
DX: S82.034A Nondisplaced transverse fracture of right patella, initial encounter for closed fracture (principal); I10 Essential (primary) hypertension; K21.9 Gastro-esophageal reflux disease without esophagitis; E11.9 Type 2 diabetes mellitus without complications; Z88.2 Allergy status to sulfonamides; Z88.8 Allergy status to other drugs, medicaments and biological substances; Z79.899 Other long term (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; Z79.84 Long term (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 of 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; W18.30XA Fall on same level, unspecified, initial encounter
CPT/HCPCS: 73502; 73560; 73700; 99284-25

== ENCOUNTER 2022-11-11 09:53 | Emergency (ER) | payer MEDICARE ==
[~2022-11-11] VITALS: Ht 170.2 cm; Wt 104.3 kg
--- OUTSIDE RECORDS SUMMARY | 2022-11-11 09:54 | XMS ---
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 - Patient with suicidal and/or homicidal ideations eloped. - Patient eloped with IV in place. Details: PATIENT LWBS CRITERIA MET - PDMP - [facility] - Has Care Guidelines CARE PROVIDERS WAYNE CAAMRGO Internal Medicine 09/07/2019-Current PHONE: Unknown SMITH CAMACHO Counselor: Mental Health 05/21/2020-Current PHONE: [phone] Kenny Palafox [facility] Current PHONE: Unknown ANGELICA MELVIN Internal Medicine: Pulmonary Disease 05/21/2020-Current PHONE: Unknown Jose Ag [facility] 01/31/2019-Current PHONE: [phone] Guidelines Source: [facility] [place] Guidelines Date: 07/06/2021 Care Coordination: Mental health services are being provided by [facility].\T\nbsp;Please contact [facility] with mental health concerns.\T\nbswagner;[place]: [phone]\T\nbsp;[place]: [phone]. Care History Medical/Surgical 12/21/2021 [facility] - Patient is currently established with [facility]. If patient is seen in the ED during business hours. Please contact CHWs at [facility]. Care Recommendation: If this patient has had 5 or more Emergency Department visits in the last 12 months.\T\nbsp;Patient will require education on the scope and purpose of the ED as an acute care provider not a Primary Care Provider and should not be utilized for chronic conditions.\T\nbsp; These are guidelines and the provider should exercise clinical judgment when providing care. 06/02/2020 [facility] - LETTER FROM PATIENT PCP- DR [...] TO DR DOMINGUEZ IF NEEDED. DR DOMINGUEZ [phone] 05/26/2020 [facility] Patient stated that she was having chest discomfort and called [facility] and they told her to go to ED. Patient has a televisit with Dr. Dominguez on 05/27/2020 at 8:40 am. E.D. VISIT COUNT (12 MO.) 8 [facility]. TOTAL 8 NOTE: Visits indicate total known visits. ED/UCC VISIT TRACKING (12 MO.) 11/11/2022 09:53 [facility] [place] TYPE: Emergency COMPLAINT: - POSS OVERDOSE 06/07/2022 11:34 [facility] [place] TYPE: Emergency COMPLAINT: - FALL DIAGNOSES: - Fall on same level, unspecified, initial encounter - Essential (primary) hypertension - Nondisplaced transverse fracture of right patella, initial encounter for closed fracture - Gastro-esophageal reflux disease without esophagitis - Pain in right hip - Allergy status to other drugs, medicaments and biological substances - [facility] [place] [facility] [place] drug therapy - Type 2 diabetes mellitus without complications - Unspecified fracture of right patella, initial encounter for closed fracture - Allergy status to sulfonamides - custodial (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 of 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 05/26/2022 12:41 [facility] [place] TYPE: Emergency COMPLAINT: - OD INTENTIONAL DIAGNOSES: - Schizoaffective disorder, unspecified - Other director long term care (current) drug therapy - Allergy status to narcotic agent - Allergy status to other drugs, medicaments and biological substances - Poisoning by selective serotonin reuptake inhibitors, accidental (unintentional), initial encounter - Allergy status to sulfonamides - Major depressive disorder, single episode, unspecified - Essential (primary) hypertension - Unspecified place or not applicable - Type 2 diabetes mellitus without complications - Gastro-esophageal reflux disease without esophagitis - termination clerk (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 of 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 05/10/2022 06:07 [facility] [place] TYPE: Emergency COMPLAINT: - ALTERED DIAGNOSES: - [facility] [place] [facility] [place]current[facility] drug therapy - termination clerk (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 of 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 [...] disorder, unspecified - Allergy status to sulfonamides 05/03/2022 11:39 [facility] [place] TYPE: Emergency COMPLAINT: - MEDICAL CLEARANCE DIAGNOSES: - Type 2 diabetes mellitus with hyperglycemia - Allergy status to sulfonamides - Allergy status to other drugs, medicaments and biological substances - [facility] [place] [facility] [place] drug therapy - Hyperglycemia, unspecified - Poisoning by other antipsychotics and neuroleptics, intentional self-harm, initial encounter - Essential (primary) hypertension 04/20/2022 14:14 [facility] [place] TYPE: Emergency COMPLAINT: - MEDICAL CLEARANCE DIAGNOSES: - Allergy status to other drugs, medicaments and biological substances - Suicidal ideations - Schizoaffective disorder, unspecified - Essential (primary) hypertension - Allergy status to sulfonamides - Contact with and (suspected) exposure to COVID-19 - Other director long term care (current) drug therapy - Gastro-esophageal reflux disease without esophagitis 04/08/2022 15:11 [facility] [place] TYPE: Emergency COMPLAINT: - SUICIDAL IDEATIONS 12/20/2021 02:27 [facility] [place] TYPE: Emergency COMPLAINT: - BACK PAIN DIAGNOSES: - Gastro-esophageal reflux disease without esophagitis - Pain in left hip - Pleurodynia - Essential (primary) hypertension - Allergy status to other drugs, medicaments and biological substances - Disorder of thyroid, unspecified - Type 2 diabetes mellitus without complications - Other director long term care (current) drug therapy - Personal history of transient ischemic attack (TIA), and cerebral infarction without residual deficits - Allergy status to sulfonamides INPATIENT VISIT TRACKING (12 MO.) 05/10/2022 18:40 [facility] [place] TYPE: Psychiatric Services DIAGNOSES: 0. Major depressive disorder, recurrent severe without psychotic features 0. 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ogical condition 1. Major depressive disorder, recurrent severe without psychotic features 1. Schizoaffective disorder, bipolar type 2. Underdosing of iminostilbenes, subsequent encounter 2. Personal history of suicidal behavior 2. Cardiomegaly 2. Bariatric surgery status 2. Suicidal ideations 2. Other specific personality disorders 2. Underdosing of tetracyclic antidepressants, subsequent encounter 2. Patient's other noncompliance with medication regimen 2. Essential (primary) hypertension 2. Gastro-esophageal reflux disease without esophagitis 2. Transient cerebral ischemic attack, unspecified 2. Type 2 diabetes mellitus without complications [email or web address]
--- NOTE | 2022-11-11 21:23 | EKG ---
[facility] [address] [place] [address] Signed Normal sinus rhythm Left axis deviation Left bundle branch block Abnormal ECG When compared with ECG of 26-MAY-2022 13:02, T wave inversion less evident in Lateral leads Confirmed by Aleah De La Torre MD () on 11/11/2022 9:23:43 PM Electronically Signed By: ALEAH DE LA TORRE MD 11/11/222122 PATIENT NAME: BERNARDA ALARCON AIDE Electrocardiogram DATE OF : 55 PHYSICIAN: ALEAH DE LA TORRE MD REPORT #: [id number] REPORT IS CONFIDENTIAL AND NOT TO BE RELEASED WITHOUT AUTHORIZATION
--- NOTE | 2022-11-13 21:48 | EKG ---
[facility] [address] [place] [address] Signed Unusual P axis, possible ectopic atrial bradycardia Left bundle branch block Abnormal ECG When compared with ECG of 11-NOV-2022 10:29, Ectopic atrial rhythm has replaced Sinus rhythm Nonspecific T wave abnormality now evident in Inferior leads QT has shortened Confirmed by Aleah De La Torre MD () on 11/13/2022 9:47:59 PM Electronically Signed By: ALEAH DE LA TORRE MD 11/13/22 2148 PATIENT NAME: BERNARDA ALARCON Electrocardiogram DATE OF : 55 PHYSICIAN: ALEAH DE LA TORRE MD REPORT #: [id number] REPORT IS CONFIDENTIAL AND NOT TO BE RELEASED WITHOUT AUTHORIZATION
== END 2022-11-12 10:46 | disposition home or self-care (01) ==
LOC: ED 09:53
DX: T43.592A Poisoning by other antipsychotics and neuroleptics, intentional self-harm, initial encounter (principal); I10 Essential (primary) hypertension; K21.9 Gastro-esophageal reflux disease without esophagitis; F25.9 Schizoaffective disorder, unspecified; I51.7 Cardiomegaly; E08.65 Diabetes mellitus due to underlying condition with hyperglycemia; Z20.822 Contact with and (suspected) exposure to COVID-19; F43.9 Reaction to severe stress, unspecified; F22 Delusional disorders; Z86.73 Personal history of transient ischemic attack (TIA), and cerebral infarction without residual deficits; Z88.2 Allergy status to sulfonamides; Z98.84 Bariatric surgery status; Z88.8 Allergy status to other drugs, medicaments and biological substances; Z88.5 Allergy status to narcotic agent; Z79.899 Other long term (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; Z79.84 Long term (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 of 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
CPT/HCPCS: 36415; 80053; 83735; 84443; 85025; 87502; 93005; 93010; 99285-25; A9270; C9803; G0480; J7030; U0003

== ENCOUNTER 2022-11-22 09:11 | Emergency (ER) | payer MEDICARE ==
[~2022-11-22] VITALS: Ht 170.2 cm; Wt 104.4 kg
--- OUTSIDE RECORDS SUMMARY | 2022-11-22 09:12 | XMS ---
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 - Patient with suicidal and/or homicidal ideations eloped. - Patient eloped with IV in place. Details: PATIENT LWBS CRITERIA MET - [facility] - 2 Visits in 30 Days - [facility] - Has Care Guidelines - [facility] CARE PROVIDERS WAYNE CAMARGO Internal Medicine 09/07/2019-Current PHONE: Unknown SMITH CAMACHO Counselor: Mental Health 05/21/2020-Current PHONE: [phone] Kenny Palafox [facility] Current PHONE: Unknown ANGELICA MELVIN Internal Medicine: Pulmonary Disease 05/21/2020-Current PHONE: Unknown Jose Ag [facility] 01/31/2019-Current PHONE: [phone] Guidelines Source: [employer] [place] Guidelines Date: 07/06/2021 Care Coordination: Mental health services are being provided by [employer].\T\nbsp;Please contact [employer] with mental health concerns.\T\nbsp;[place]: \T\nbsp;[place]: [phone]. Care History Medical/Surgical 12/21/2021 [facility] - Patient is currently established with [facility]. If patient is seen in the ED during business hours. Please contact CHWs at [facility]. Care Recommendation: If this patient has had 5 or more Emergency Department visits in the last 12 months.\T\nbsp;Patient will require education on the scope and purpose of the ED as an acute care provider not a Primary Care Provider and should not be utilized for chronic conditions.\T\nbsp; These are guidelines and the provider should exercise clinical judgment when providing care. 06/02/2020 [facility] - LETTER FROM PATIENT PCP- [...] TO DR DOMINGUEZ IF NEEDED. DR DOMINGUEZ [phone] 05/26/2020 [facility] Patient stated that she was having chest discomfort and called [facility] and they told her to go to ED. Patient has a televisit with Dr. Dominguez on 05/27/2020 at 8:40 am. E.D. VISIT COUNT (12 MO.) 9 [facility]. TOTAL 9 NOTE: Visits indicate total known visits. ED/UCC VISIT TRACKING (12 MO.) 11/22/2022 09:12 [facility] [place] TYPE: Emergency COMPLAINT: - CHEST PAIN 11/11/2022 09:53 [facility] [place] TYPE: Emergency COMPLAINT: - POSS OVERDOSE DIAGNOSES: - Essential (primary) hypertension - Delusional disorders - Allergy status to narcotic agent - Diabetes mellitus due to underlying condition with hyperglycemia - Diabetes mellitus due to underlying condition without complications - Allergy status to other drugs, medicaments and biological substances - Personal history of transient ischemic attack (TIA), and cerebral infarction without residual deficits - Allergy status to sulfonamides - Reaction to severe stress, unspecified - jail (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 of 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 - Contact with and (suspected) exposure to COVID-19 - Bariatric surgery status - Poisoning by other antipsychotics and neuroleptics, intentional self-harm, initial encounter - Schizoaffective disorder, unspecified - 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 - Gastro-esophageal reflux disease without esophagitis - Hyperglycemia, unspecified - Cardiomegaly 06/07/2022 11:34 [facility] [place] TYPE: Emergency COMPLAINT: - FALL DIAGNOSES: - Type 2 diabetes mellitus without complications - Unspecified fracture of right patella, initial encounter for closed fracture - Allergy status to sulfonamides - extermination supervisor (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 of 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 - Fall on same level, unspecified, initial encounter - Essential (primary) hypertension - Nondisplaced transverse fracture of right patella, initial encounter for closed fracture - Gastro-esophageal reflux disease without esophagitis - Pain in right hip - Allergy status to other drugs, medicaments and biological substances - 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 05/26/2022 12:41 [facility] [place] TYPE: Emergency COMPLAINT: - OD INTENTIONAL DIAGNOSES: - Essential (primary) hypertension - Unspecified place or not applicable - Type 2 diabetes mellitus without complications - Gastro-esophageal reflux disease without esophagitis - jail (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 of 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 - Schizoaffective disorder, unspecified - [place] [facility] [place] drug therapy - Allergy status to narcotic agent - Allergy status to other drugs, medicaments and biological substances - Poisoning by selective serotonin reuptake inhibitors, accidental (unintentional), initial encounter - Allergy status to sulfonamides - Major depressive disorder, single episode, unspecified 05/10/2022 06:07 [facility] [place] TYPE: Emergency COMPLAINT: - ALTERED DIAGNOSES: - Contact with and (suspected) exposure to COVID-19 - Allergy status to other drugs, medicaments and biological substances - Suicidal ideations - Schizoaffective disorder, unspecified - Allergy status to sulfonamides - 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 - extermination supervisor (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 of 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 - Gastro-esophageal reflux disease without esophagitis - 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ogical condition - Essential (primary) hypertension - Type 2 diabetes mellitus without complications - Personal history of transient ischemic attack (TIA), and cerebral infarction without residual deficits - Type 2 diabetes mellitus with hyperglycemia 05/03/2022 11:39 [facility] [place] TYPE: Emergency COMPLAINT: - MEDICAL CLEARANCE DIAGNOSES: - Hyperglycemia, unspecified - Poisoning by other antipsychotics and neuroleptics, intentional self-harm, initial encounter - Essential (primary) hypertension - Type 2 diabetes mellitus with hyperglycemia - Allergy status to sulfonamides - Allergy status to other drugs, medicaments and biological substances - 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 04/20/2022 14:14 [facility] [place] TYPE: Emergency COMPLAINT: - MEDICAL CLEARANCE DIAGNOSES: - Contact with and (suspected) exposure to COVID-19 - [facility] [place] [facility] [place] drug therapy - Gastro-esophageal reflux disease without esophagitis - Allergy status to other drugs, medicaments and biological substances - Suicidal ideations - Schizoaffective disorder, unspecified - Essential (primary) hypertension - Allergy status to sulfonamides 04/08/2022 15:11 [facility] [place] TYPE: Emergency COMPLAINT: - SUICIDAL IDEATIONS 12/20/2021 02:27 [facility] [place] TYPE: Emergency COMPLAINT: - BACK PAIN DIAGNOSES: - Type 2 diabetes mellitus without complications - 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 - Personal history of transient ischemic attack (TIA), and cerebral infarction without residual deficits - Allergy status to sulfonamides - Gastro-esophageal reflux disease without esophagitis - Pain in left hip - Pleurodynia - Essential (primary) hypertension - Allergy status to other drugs, medicaments and biological substances - Disorder of thyroid, unspecified INPATIENT VISIT TRACKING (12 MO.) 05/10/2022 18:40 [facility] [place] TYPE: Psychiatric Services DIAGNOSES: 0. Major depressive disorder, recurrent severe without psychotic features 0. 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ogical condition 1. Schizoaffective disorder, bipolar type 1. Major depressive disorder, recurrent severe without psychotic features 2. Patient's other noncompliance with medication regimen 2. Essential (primary) hypertension 2. Gastro-esophageal reflux disease without esophagitis 2. Transient cerebral ischemic attack, unspecified 2. Type 2 diabetes mellitus without complications 2. Underdosing of iminostilbenes, subsequent encounter 2. Personal history of suicidal behavior 2. Cardiomegaly 2. Bariatric surgery status 2. Suicidal ideations 2. Other specific personality disorders 2. Underdosing of tetracyclic antidepressants, subsequent encounter [email or web address]
[2022-11-22] MEDS ORDERED: BUSPIRONE HCL7.5 MG PO (11:03)
--- NOTE | 2022-11-23 13:05 | EKG ---
[facility] [address] [facility] [address] [place] [address] Signed Normal sinus rhythm Left axis deviation Left bundle branch block Abnormal ECG No previous ECGs available Confirmed by GAYLE MUÑOZ MD ([id number]) on 11/23/2022 1:05:09 PM Electronically Signed By: GAYLE MUÑOZ MD 11/23/22 1305 PATIENT NAME: BERNARDA ALARCON Electrocardiogram DATE OF : 55 PHYSICIAN: GAYLE MUÑOZ MD REPORT #: [id number] REPORT IS CONFIDENTIAL AND NOT TO BE RELEASED WITHOUT AUTHORIZATION
== END 2022-11-22 14:30 | disposition home or self-care (01) ==
LOC: ED 09:11
DX: R07.2 Precordial pain (principal); F29 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ogical condition; I10 Essential (primary) hypertension; K21.9 Gastro-esophageal reflux disease without esophagitis; E11.9 Type 2 diabetes mellitus without complications; Z88.2 Allergy status to sulfonamides; Z88.8 Allergy status to other drugs, medicaments and biological substances; Z79.899 Other long term (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
CPT/HCPCS: 36415; 71045; 80053; 83735; 84484; 85025; 93005; 93010; 99285-25

== ENCOUNTER 2022-11-27 20:20 | Emergency (ER) | payer MEDICARE ==
[~2022-11-27] VITALS: Ht 170.2 cm; Wt 79.4 kg
[~2022-11-27 20:20] MED LIST changes: +BUSPIRONE HCL7.5 MG PO
--- OUTSIDE RECORDS SUMMARY | 2022-11-27 20:22 | XMS ---
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 Security Policyholder Information Clerk Events 1 event(s) in the past 18 months Most recent security events: Elopement at [facility] 04/08/2022 15:11 - Patient eloped before treatment completed. - Patient with suicidal and/or homicidal ideations eloped. - Patient eloped with IV in place. Details: PATIENT LWBS CRITERIA MET - [facility] - Has Care Guidelines - [facility] - 2 Visits in 30 Days - [facility] CARE PROVIDERS WAYNE CAMARGO Internal Medicine 09/07/2019-Current PHONE: Unknown SMITH CAMACHO Counselor: Mental Health 05/21/2020-Current PHONE: [phone] Kenny Palafox [facility] Current PHONE: Unknown ANGELICA MELVIN Internal Medicine: Pulmonary Disease 05/21/2020-Current PHONE: Unknown Jose Ag [facility] 01/31/2019-Current PHONE: [phone] Guidelines Source: [facility] [place] Guidelines Date: 07/06/2021 Care Coordination: Mental health services are being provided by [employer].\T\nbsp;Please contact [employer] with mental health concerns.\T\nbsp;[place]: [phone]\T\nbsp;Moshe: [phone]. Care History Medical/Surgical 12/21/2021 [facility] - Patient is currently established with [facility]. If patient is seen in the ED during business hours. Please contact CHWs at [facility]. Care Recommendation: If this patient has had 5 or more Emergency Department visits in the last 12 months.\T\nbsp;Patient will require education on the scope and purpose of the ED as an acute care provider not a Primary Care Provider and should not be utilized for chronic conditions.\T\nbsp; These are guidelines and the provider should exercise clinical judgment when providing care. 06/02/2020 [facility] - LETTER FROM PATIENT PCP- [...] TO DR DOMINGUEZ IF NEEDED. DR DOMINGUEZ [phone] 05/26/2020 [facility] Patient stated that she was having chest discomfort and called [facility] and they told her to go to ED. Patient has a televisit with Dr. Dominguez on 05/27/2020 at 8:40 am. E.D. VISIT COUNT (12 MO.) 10 [facility]. TOTAL 10 NOTE: Visits indicate total known visits. 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ogical condition - Allergy status to sulfonamides - Type 2 diabetes mellitus without complications - Allergy status to other drugs, medicaments and biological substances 11/11/2022 09:53 [facility] [place] TYPE: Emergency COMPLAINT: - POSS OVERDOSE DIAGNOSES: - Allergy status to narcotic agent - Diabetes mellitus due to underlying condition with hyperglycemia - Diabetes mellitus due to underlying condition without complications - Personal history of transient ischemic attack (TIA), and cerebral infarction without residual deficits - Allergy status to other drugs, medicaments and biological substances - Allergy status to sulfonamides - Reaction to severe stress, unspecified - 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 - Contact with and (suspected) exposure to COVID-19 - Bariatric surgery status - Poisoning by other antipsychotics and neuroleptics, intentional self-harm, initial encounter - Other mcfp (current) drug therapy - Schizoaffective disorder, unspecified - Gastro-esophageal reflux disease without esophagitis - Hyperglycemia, unspecified - Cardiomegaly - Essential (primary) hypertension - Delusional disorders 06/07/2022 11:34 [facility] [place] TYPE: Emergency COMPLAINT: - FALL DIAGNOSES: - Unspecified fracture of right patella, initial encounter for closed fracture - Allergy status to sulfonamides - senior care (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 of 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 - Fall on same level, unspecified, initial encounter - Essential (primary) hypertension - Nondisplaced transverse fracture of right patella, initial encounter for closed fracture - Gastro-esophageal reflux disease without esophagitis - Pain in right hip - Allergy status to other drugs, medicaments and biological substances - Other mcfp (current) drug therapy - Type 2 diabetes mellitus without complications 05/26/2022 12:41 [facility] [place] TYPE: Emergency COMPLAINT: - OD INTENTIONAL DIAGNOSES: - Unspecified place or not applicable - Type 2 diabetes mellitus without complications - Gastro-esophageal reflux disease without esophagitis - senior care (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 of 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 - Schizoaffective disorder, unspecified - Other long term care administrator (current) drug therapy - Allergy status to narcotic agent - Allergy status to other drugs, medicaments and biological substances - Poisoning by selective serotonin reuptake inhibitors, accidental (unintentional), initial encounter - Allergy status to sulfonamides - Major depressive disorder, single episode, unspecified - Essential (primary) hypertension 05/10/2022 06:07 [facility] [place] TYPE: Emergency COMPLAINT: - ALTERED DIAGNOSES: - Allergy status to other drugs, medicaments and biological substances - Suicidal ideations - Schizoaffective disorder, unspecified - Allergy status to sulfonamides - Other mcfp (current) drug therapy - 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 - [...] Contact with and (suspected) exposure to COVID-19 05/03/2022 11:39 [facility] [place] TYPE: Emergency COMPLAINT: - MEDICAL CLEARANCE DIAGNOSES: - Poisoning by other antipsychotics and neuroleptics, intentional self-harm, initial encounter - Essential (primary) hypertension - Type 2 diabetes mellitus with hyperglycemia - Allergy status to sulfonamides - Allergy status to other drugs, medicaments and biological substances - Other mcfp (current) drug therapy - Hyperglycemia, unspecified 04/20/2022 14:14 [facility] [place] TYPE: Emergency COMPLAINT: - MEDICAL CLEARANCE DIAGNOSES: - Other mcfp (current) drug therapy - Gastro-esophageal reflux disease without esophagitis - Allergy status to other drugs, medicaments and biological substances - Suicidal ideations - Schizoaffective disorder, unspecified - Essential (primary) hypertension - Allergy status to sulfonamides - Contact with and (suspected) exposure to COVID-19 04/08/2022 15:11 [facility] [place] TYPE: Emergency COMPLAINT: - SUICIDAL IDEATIONS 12/20/2021 02:27 [facility] [place] TYPE: Emergency COMPLAINT: - BACK PAIN DIAGNOSES: - Other mcfp (current) drug therapy - Personal history of [...] without complications INPATIENT VISIT TRACKING (12 MO.) 05/10/2022 18:40 [facility] [place] TYPE: Psychiatric Services DIAGNOSES: 0. Major depressive disorder, recurrent severe without psychotic features 0. 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ogical condition 1. Schizoaffective disorder, bipolar type 1. Major depressive disorder, recurrent severe without psychotic features 2. Gastro-esophageal reflux disease without esophagitis 2. Transient cerebral ischemic attack, unspecified 2. Type 2 diabetes mellitus without complications 2. Underdosing of iminostilbenes, subsequent encounter 2. Personal history of suicidal behavior 2. Cardiomegaly 2. Bariatric surgery status 2. Suicidal ideations 2. Other specific personality disorders 2. Underdosing of tetracyclic antidepressants, subsequent encounter 2. Patient's other noncompliance with medication regimen 2. Essential (primary) hypertension [email or web address]
[2022-11-27] MEDS ORDERED: CARBAMAZEPINE200 M1 PO (20:28)
[2022-11-27] MEDS ORDERED: CITALOPRAM HBR40 MG PO (20:28)
[2022-11-27] MEDS ORDERED: CYCLOBENZAPRINE10 MG PO (21:06)
--- NOTE | 2022-11-28 12:31 | EKG ---
[facility] [address] [place] [address] Signed Normal sinus rhythm Left axis deviation Left bundle branch block Abnormal ECG When compared with ECG of 22-NOV-2022 09:14, No significant change was found Confirmed by Aleah De La Torre MD () on 11/28/2022 12:31:36 PM Electronically Signed By: ALEAH DE LA TORRE MD 11/28/22 1231 PATIENT NAME: BERNARDA ALARCON AIDE Electrocardiogram DATE OF : 55 PHYSICIAN: ALEAH DE LA TORRE MD REPORT #: [id number] REPORT IS CONFIDENTIAL AND NOT TO BE RELEASED WITHOUT AUTHORIZATION
== END 2022-11-27 21:17 | disposition home or self-care (01) ==
LOC: ED 20:20
DX: R07.89 Other chest pain (principal); I25.2 Old myocardial infarction; I10 Essential (primary) hypertension; K21.9 Gastro-esophageal reflux disease without esophagitis; E11.9 Type 2 diabetes mellitus without complications; Z88.2 Allergy status to sulfonamides; Z88.8 Allergy status to other drugs, medicaments and biological substances; Z79.899 Other long term (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
CPT/HCPCS: 36415; 71045; 80053; 83735; 83880; 84484; 85025; 85379; 85610; 93005; 93010; 96374; 99285-25; J2270

== ENCOUNTER 2022-12-03 11:24 | Emergency (ER) | payer MEDICARE ==
[~2022-12-03] VITALS: Ht 170.2 cm; Wt 79.4 kg
[~2022-12-03 11:24] MED LIST changes: +CARBAMAZEPINE200 M1 PO; +CITALOPRAM HBR40 MG PO; +CYCLOBENZAPRINE10 MG PO
--- OUTSIDE RECORDS SUMMARY | 2022-12-03 11:27 | XMS ---
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 - Patient with suicidal and/or homicidal ideations eloped. - Patient eloped with IV in place. Details: PATIENT LWBS CRITERIA MET - [facility] - Has Care Guidelines - PDMP - [facility] - 2 Visits in 30 Days CARE PROVIDERS WAYNE CAMARGO Internal Medicine 09/07/2019-Current PHONE: Unknown SMITH CAMACHO Counselor: Mental Health 05/21/2020-Current PHONE: [phone] Kenny Palafox [facility] Current PHONE: Unknown ANGELICA MELVIN Internal Medicine: Pulmonary Disease 05/21/2020-Current PHONE: Unknown Jose Ag [facility] 01/31/2019-Current PHONE: [phone] Guidelines Source: [employer] [facility] [place] Guidelines Date: 07/06/2021 Care Coordination: Mental health services are being provided by [employer].\T\nbsp;Please contact [employer] with mental health concerns.\T\nbsp;[place]: [phone]\T\nbsp;Moshe: [phone]. Care History Medical/Surgical 12/21/2021 [facility] - Patient is currently established with [facility]. If patient is seen in the ED during business hours. Please contact CHWs at [facility]. Care Recommendation: If this patient has had 5 or more Emergency Department visits in the last 12 months.\T\nbsp;Patient will require education on the scope and purpose of the ED as an acute care provider not a Primary Care Provider and should not be utilized for chronic conditions.\T\nbsp; These are guidelines and the provider should exercise clinical judgment when providing care. 06/02/2020 [facility] - LETTER FROM PATIENT PCP- DR [...] TO DR DOMINGUEZ IF NEEDED. DR DOMINGUEZ [phone] 05/26/2020 [facility] Patient stated that she was having chest discomfort and called [facility] and they told her to go to ED. Patient has a televisit with Dr. Dominguez on 05/27/2020 at 8:40 am. E.D. VISIT COUNT (12 MO.) 11 [facility]. TOTAL 11 NOTE: Visits indicate total known visits. ED/UCC VISIT TRACKING (12 MO.) 12/03/2022 11:25 [facility] [place] TYPE: Emergency COMPLAINT: - SUICIDAL IDEATIONS 11/27/2022 20:20 [facility] [place] TYPE: Emergency COMPLAINT: - CHEST PAIN DIAGNOSES: - Allergy status to sulfonamides - Gastro-esophageal reflux disease without esophagitis - Allergy status to other drugs, medicaments and biological substances - Other chest pain - Other terminologist (current) drug therapy - Type 2 diabetes mellitus without complications - Essential (primary) hypertension - Old myocardial infarction 11/22/2022 09:[address] [facility] [place] TYPE: Emergency COMPLAINT: - CHEST PAIN DIAGNOSES: - Precordial pain - Essential (primary) hypertension - Other terminologist (current) drug therapy - 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ogical condition - Allergy status to sulfonamides - Type 2 diabetes mellitus without complications - Allergy status to other drugs, medicaments and biological substances - Gastro-esophageal reflux disease without esophagitis 11/11/2022 09:53 [facility] [place] TYPE: Emergency COMPLAINT: - POSS OVERDOSE DIAGNOSES: - Personal history of transient ischemic attack (TIA), and cerebral infarction without residual deficits - Allergy status to other drugs, medicaments and biological substances - Allergy status to sulfonamides - Reaction to severe stress, unspecified - 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 - Contact with and (suspected) exposure to COVID-19 - Bariatric surgery status - Poisoning by other antipsychotics and neuroleptics, intentional self-harm, initial encounter - Other terminologist (current) drug therapy - Schizoaffective disorder, unspecified - Gastro-esophageal reflux disease without esophagitis - Hyperglycemia, unspecified - Cardiomegaly - Essential (primary) hypertension - Delusional disorders - Allergy status to narcotic agent - Diabetes mellitus due to underlying condition with hyperglycemia - Diabetes mellitus due to underlying condition without complications 06/07/2022 11:34 [facility] [place] TYPE: Emergency COMPLAINT: - FALL DIAGNOSES: - skilled nursing (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 of 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 - Fall on same level, unspecified, initial encounter - Essential (primary) hypertension - Nondisplaced transverse fracture of right patella, initial encounter for closed fracture - Gastro-esophageal reflux disease without esophagitis - Pain in right hip - Allergy status to other drugs, medicaments and biological substances - Other terminologist (current) drug therapy - Type 2 diabetes mellitus without complications - Unspecified fracture of right patella, initial encounter for closed fracture - Allergy status to sulfonamides 05/26/2022 12:41 [facility] [place] TYPE: Emergency COMPLAINT: - OD INTENTIONAL DIAGNOSES: - 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 - Schizoaffective disorder, unspecified - Other terminologist (current) drug therapy - Allergy status to [...] complications - Gastro-esophageal reflux disease without esophagitis 05/10/2022 06:07 [facility] [place] TYPE: Emergency COMPLAINT: - ALTERED DIAGNOSES: - Allergy status to sulfonamides - Other terminologist (current) drug therapy - skilled nursing (current) use of oral [...] - Suicidal ideations - Schizoaffective disorder, unspecified 05/03/2022 11:39 [facility] [place] TYPE: Emergency COMPLAINT: - MEDICAL CLEARANCE DIAGNOSES: - Essential (primary) hypertension - Type 2 diabetes mellitus with hyperglycemia - Allergy status to sulfonamides - Allergy status to other drugs, medicaments and biological substances - Other skilled nursing (current) drug therapy - Hyperglycemia, unspecified - Poisoning by other antipsychotics and neuroleptics, intentional self-harm, initial encounter 04/20/2022 14:14 [facility] [place] TYPE: Emergency COMPLAINT: - MEDICAL CLEARANCE DIAGNOSES: - Gastro-esophageal reflux disease without esophagitis - Allergy status to other drugs, medicaments and biological substances - Suicidal ideations - Schizoaffective disorder, unspecified - Essential (primary) hypertension - Allergy status to sulfonamides - Contact with and (suspected) exposure to COVID-19 - Other terminologist (current) drug therapy 04/08/2022 15:11 [facility] [place] TYPE: Emergency COMPLAINT: - SUICIDAL IDEATIONS 12/20/2021 02:27 [facility] [place] TYPE: Emergency COMPLAINT: - BACK PAIN DIAGNOSES: - Allergy status to sulfonamides - Gastro-esophageal reflux disease without esophagitis - Pain in left hip - Pleurodynia - Essential (primary) hypertension - Allergy status to other drugs, medicaments and biological substances - Disorder of thyroid, unspecified - Type 2 diabetes mellitus without complications - Other terminologist (current) drug therapy - Personal history of transient ischemic attack (TIA), and cerebral infarction without residual deficits INPATIENT VISIT TRACKING (12 MO.) 05/10/2022 18:40 [facility] [place] TYPE: Psychiatric Services DIAGNOSES: 0. Major depressive disorder, recurrent severe without psychotic features 0. 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ogical condition 1. Major depressive disorder, recurrent severe without psychotic features 1. Schizoaffective disorder, bipolar type 2. Type 2 diabetes mellitus without complications 2. Underdosing of iminostilbenes, subsequent encounter 2. Personal history of suicidal behavior 2. Cardiomegaly 2. Bariatric surgery status 2. Suicidal ideations 2. Other specific personality disorders 2. Underdosing of tetracyclic antidepressants, subsequent encounter 2. Patient's other noncompliance with medication regimen 2. Essential (primary) hypertension 2. Gastro-esophageal reflux disease without esophagitis 2. Transient cerebral ischemic attack, unspecified [email or web address]
[2022-12-03] MEDS ORDERED: OLANZAPINE20 MG PO (17:45)
== END 2022-12-04 12:12 | disposition short-term general hospital (02) ==
LOC: ED 11:24
DX: F22 Delusional disorders (principal); R45.851 Suicidal ideations; I10 Essential (primary) hypertension; K21.9 Gastro-esophageal reflux disease without esophagitis; E11.9 Type 2 diabetes mellitus without complications; Z88.8 Allergy status to other drugs, medicaments and biological substances; Z88.2 Allergy status to sulfonamides; Z79.899 Other long term (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
CPT/HCPCS: 36415; 80053; 81003; 84443; 85025; 87502; 99285; A9270; G0480; U0003

== ENCOUNTER 2022-12-25 18:02 | Emergency (ER) | payer MEDICARE ==
[~2022-12-25] VITALS: Ht 170.2 cm; Wt 79.4 kg
--- OUTSIDE RECORDS SUMMARY | 2022-12-25 18:06 | XMS ---
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 - Patient with suicidal and/or homicidal ideations eloped. - Patient eloped with IV in place. Details: PATIENT LWBS CRITERIA MET - PDMP - [facility] - 2 Visits in 30 Days - [facility] - Has Care Guidelines CARE PROVIDERS WAYNE CAMARGO Internal Medicine 09/07/2019-Current PHONE: Unknown SMITH CAMACHO Counselor: Mental Health 05/21/2020-Current PHONE: [phone] Kenny Palafox [facility] Current PHONE: Unknown ANGELICA MELVIN Internal Medicine: Pulmonary Disease 05/21/2020-Current PHONE: Unknown Jose Ag [facility] 01/31/2019-Current PHONE: [phone] Guidelines Source: [facility] - [employer] Guidelines Date: 07/06/2021 Care Coordination: Mental health services are being provided by [facility].\T\nbsp;Please contact [facility] with mental health concerns.\T\nbsp;[place]: \T\nbsp;[place]: [phone]. Care History Medical/Surgical 12/21/2021 [facility] - Patient is currently established with [facility]. If patient is seen in the ED during business hours. Please contact CHWs at [facility]. Care Recommendation: If this patient [...] clinical judgment when providing care. 06/02/2020 [facility] - LETTER FROM PATIENT PCP- DR [...] TO DR DOMINGUEZ IF NEEDED. DR DOMINGUEZ [phone] 05/26/2020 [facility] Patient stated that she was having chest discomfort and called [facility] and they told her to go to ED. Patient has a televisit with Dr. Dominguez on 05/27/2020 at 8:40 am. E.D. VISIT COUNT (12 MO.) 11 [facility]. TOTAL 11 NOTE: Visits indicate total known visits. ED/UCC VISIT TRACKING (12 MO.) 12/25/2022 18:03 [facility] [place] TYPE: Emergency COMPLAINT: - FEVER,COUGH AND SOB 12/03/2022 11:25 [facility] [place] TYPE: Emergency COMPLAINT: - SUICIDAL IDEATIONS DIAGNOSES: - Other senior care (current) drug therapy - Allergy status to other drugs, medicaments and biological substances - Essential (primary) hypertension - Allergy status to sulfonamides - Contact with and (suspected) exposure to COVID-19 - Suicidal ideations - Delusional disorders - Gastro-esophageal reflux disease without esophagitis - Type 2 diabetes mellitus without complications 11/27/2022 20:20 [facility] [place] TYPE: Emergency COMPLAINT: - CHEST PAIN DIAGNOSES: - Essential (primary) hypertension - Old myocardial infarction - Allergy status to sulfonamides - Gastro-esophageal reflux disease without esophagitis - Allergy status to other drugs, medicaments and biological substances - Other chest pain - Other environmental management specialist (current) drug therapy - Type 2 diabetes mellitus without complications 11/22/2022 09:12 [facility] [place] TYPE: Emergency COMPLAINT: - CHEST PAIN DIAGNOSES: - Allergy status to other drugs, medicaments and biological substances - Gastro-esophageal reflux disease without esophagitis - Precordial pain - Essential (primary) hypertension - Other senior care (current) drug therapy - 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ogical condition - Allergy status to sulfonamides - Type 2 diabetes mellitus without complications 11/11/2022 09:53 [facility] [place] TYPE: Emergency COMPLAINT: - POSS OVERDOSE DIAGNOSES: - Delusional disorders - Allergy status [...] - Reaction to severe stress, unspecified - MCC (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 of 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 - Contact with and (suspected) exposure to COVID-19 - Bariatric surgery status - Poisoning by other antipsychotics and neuroleptics, intentional self-harm, initial encounter - Other senior care (current) drug therapy - Schizoaffective disorder, unspecified - Gastro-esophageal reflux disease without esophagitis - Hyperglycemia, unspecified - Cardiomegaly - Essential (primary) hypertension 06/07/2022 11:34 [facility] [place] TYPE: Emergency COMPLAINT: - FALL DIAGNOSES: - Type 2 diabetes mellitus without complications - Unspecified fracture of right patella, initial encounter for closed fracture - Allergy status to sulfonamides - 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 - Fall on same level, unspecified, initial encounter - Essential (primary) hypertension - Nondisplaced transverse fracture of right patella, initial encounter for closed fracture - Gastro-esophageal reflux disease without esophagitis - Pain in right hip - Allergy status to other drugs, medicaments and biological substances - Other senior care (current) drug therapy 05/26/2022 12:41 [facility] [place] TYPE: Emergency COMPLAINT: - OD INTENTIONAL DIAGNOSES: - Essential (primary) hypertension - Unspecified place or not applicable - Type 2 diabetes mellitus without complications - Gastro-esophageal reflux disease without esophagitis - MCC (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 of 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 - Schizoaffective disorder, unspecified - Other environmental management specialist (current) drug therapy - Allergy status to [...] Other senior care (current) drug therapy - 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 [place] TYPE: Emergency COMPLAINT: - SUICIDAL IDEATIONS INPATIENT VISIT TRACKING (12 MO.) 12/04/2022 15:52 [facility] [place] TYPE: Psychiatric Services DIAGNOSES: 0. Schizoaffective disorder, depressive type 0. Schizoaffective disorder, bipolar type 1. Schizoaffective disorder, bipolar type 2. Suicidal ideations 2. Patient's other noncompliance with medication regimen 2. MCC (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 of 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 2. Personal history of suicidal behavior 2. Cardiomegaly 2. Presence of aortocoronary bypass graft 2. Essential (primary) hypertension 2. Type 2 diabetes mellitus without complications 2. Gastro-esophageal reflux disease without esophagitis 2. Other specific personality disorders 2. Underdosing of other antipsychotics and neuroleptics, initial encounter 05/10/2022 18:40 [facility] [place] TYPE: Psychiatric Services DIAGNOSES: 0. Major depressive disorder, recurrent severe without psychotic features 0. 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ogical condition 1. Schizoaffective disorder, bipolar type 1. Major depressive disorder, recurrent severe without psychotic features 2. Essential (primary) hypertension 2. Gastro-esophageal reflux disease without esophagitis 2. Transient cerebral ischemic attack, unspecified 2. Type 2 diabetes mellitus without complications 2. Underdosing of iminostilbenes, subsequent encounter 2. Personal history of suicidal behavior 2. Cardiomegaly 2. Bariatric surgery status 2. Suicidal ideations 2. Other specific personality disorders 2. Underdosing of tetracyclic antidepressants, subsequent encounter 2. Patient's other noncompliance with medication regimen [email or web address]
[2022-12-25] MEDS ORDERED: VENTOLIN HFA18 GM INH (18:31)
== END 2022-12-25 19:09 | disposition home or self-care (01) ==
LOC: ED 18:02
DX: B34.9 Viral infection, unspecified (principal); Z20.822 Contact with and (suspected) exposure to COVID-19; I10 Essential (primary) hypertension; K21.9 Gastro-esophageal reflux disease without esophagitis; E11.9 Type 2 diabetes mellitus without complications; Z88.2 Allergy status to sulfonamides; Z88.8 Allergy status to other drugs, medicaments and biological substances; Z79.899 Other long term (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
CPT/HCPCS: 87502; 94640; 94664; 99285-25; A9270; C9803; U0003

== ENCOUNTER 2023-01-20 10:18 | Emergency (ER) | payer MEDICARE ==
[~2023-01-20] VITALS: Ht 170.2 cm; Wt 68.1 kg
--- OUTSIDE RECORDS SUMMARY | 2023-01-20 10:20 | XMS ---
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 04/08/2022 15:11 - Patient eloped before treatment completed. - Patient with suicidal and/or homicidal ideations eloped. - Patient eloped with IV in place. Details: PATIENT LWBS CRITERIA MET - [facility] - Has Care Guidelines - PDMP - [facility] - 2 Visits in 30 Days - 6 ED Visits in 6 Months CARE PROVIDERS WAYNE CAMARGO Internal Medicine 09/07/2019-Current PHONE: Unknown SMITH CAMACHO Counselor: Mental Health 05/21/2020-Current PHONE: [phone] Kenny Palafox [facility] Current PHONE: Unknown ANGELICA MELVIN Internal Medicine: Pulmonary Disease 05/21/2020-Current PHONE: Unknown Jose Ag [facility] 01/31/2019-Current PHONE: [phone] Care Guidelines exist for the following facilities: [facility] ( 07/06/2021 ) Care History Medical/Surgical 12/21/2021 [facility] - Patient is currently established with [facility]. If patient is seen in the ED during business hours. Please contact CHWs at [facility]. Care Recommendation: If this patient has had 5 or more Emergency Department visits in the last 12 months.\T\nbsp;Patient will require education on the scope and purpose of the ED as an acute care provider not a Primary Care Provider and should not be utilized for chronic conditions.\T\nbsp; These are guidelines and the provider should exercise clinical judgment when providing care. 06/02/2020 [facility] - LETTER FROM PATIENT PCP- DR DOMINGUEZ [...] TO DR DOMINGUEZ IF NEEDED. DR DOMINGUEZ [phone] 05/26/2020 [facility] Patient stated that she was having chest discomfort and called [facility] and they told her to go to ED. Patient has a televisit with Dr. Dominguez on 05/27/2020 at 8:40 am. E.D. VISIT COUNT (12 MO.) 12 [facility]. TOTAL 12 NOTE: Visits indicate total known visits. ED/UCC VISIT TRACKING (12 MO.) 01/20/2023 10:18 [facility] [place] TYPE: Emergency COMPLAINT: - WEAKNESS 12/25/2022 18:03 [facility] [place] TYPE: Emergency COMPLAINT: - FEVER,COUGH AND SOB DIAGNOSES: - Shortness of breath - Viral infection, unspecified - Type 2 diabetes mellitus without complications - Allergy status to sulfonamides - Allergy status to other drugs, medicaments and biological substances - Essential (primary) hypertension - Contact with and (suspected) exposure to COVID-19 - Other clock mechanic (current) drug therapy - Gastro-esophageal reflux disease without esophagitis 12/03/2022 11:25 [facility] [place] TYPE: Emergency COMPLAINT: - SUICIDAL IDEATIONS DIAGNOSES: - Delusional disorders - Gastro-esophageal reflux disease without esophagitis - Type 2 diabetes mellitus without complications - Other clock mechanic (current) drug therapy - Allergy status to other drugs, medicaments and biological substances - Essential (primary) hypertension - Allergy status to sulfonamides - Contact with and (suspected) exposure to COVID-19 - Suicidal ideations 11/27/2022 20:20 [facility] [place] TYPE: Emergency COMPLAINT: - CHEST PAIN DIAGNOSES: - Other retirement (current) drug therapy - Type 2 diabetes mellitus without complications - Essential (primary) hypertension - Old myocardial infarction - Allergy status to sulfonamides - Gastro-esophageal reflux disease without esophagitis - Allergy status to other drugs, medicaments and biological substances - Other chest pain 11/22/2022 09:12 [facility] [place] COMPLAINT: - CHEST PAIN DIAGNOSES: - Allergy status to sulfonamides - Type 2 diabetes mellitus without complications - Allergy status to other drugs, medicaments and biological substances - Gastro-esophageal reflux disease without esophagitis - Precordial pain - Essential (primary) hypertension - Other clock mechanic (current) drug therapy - 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ogical condition 11/11/2022 09:53 [facility] [place] [facility] [place] TYPE: Emergency COMPLAINT: - POSS OVERDOSE DIAGNOSES: - Other retirement (current) drug therapy [...] - Reaction to severe stress, unspecified - 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 - Contact with and (suspected) exposure to COVID-19 - Bariatric surgery status - Poisoning by other antipsychotics and neuroleptics, intentional self-harm, initial encounter 06/07/2022 11:34 [facility] [place] TYPE: Emergency COMPLAINT: - FALL DIAGNOSES: - Pain in right hip - Allergy status to other drugs, medicaments and biological substances - Other clock mechanic (current) drug therapy - Type 2 diabetes mellitus without complications - Unspecified fracture of right patella, initial encounter for closed fracture - Allergy status to sulfonamides - prison (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 of 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 - Fall on same level, unspecified, initial encounter - Essential (primary) hypertension - Nondisplaced transverse fracture of right patella, initial encounter for closed fracture - Gastro-esophageal reflux disease without esophagitis 05/26/2022 12:41 [facility] [place] TYPE: Emergency COMPLAINT: - OD INTENTIONAL DIAGNOSES: - Poisoning by selective serotonin reuptake inhibitors, accidental (unintentional), initial encounter - Allergy status to sulfonamides - Major depressive disorder, single episode, unspecified - Essential (primary) hypertension - Unspecified place or not applicable - Type 2 diabetes mellitus without complications - Gastro-esophageal reflux disease without esophagitis - prison (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 of 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 - Schizoaffective disorder, unspecified - Other clock mechanic (current) drug therapy - Allergy status to narcotic agent - Allergy status to other drugs, medicaments and biological substances 05/10/2022 06:07 [facility] [place] TYPE: Emergency COMPLAINT: - ALTERED DIAGNOSES: - Type 2 diabetes mellitus without complications - Personal history of transient ischemic attack (TIA), and cerebral infarction without residual deficits - Type 2 diabetes mellitus with hyperglycemia - Contact with and (suspected) exposure to COVID-19 - Allergy status to other drugs, medicaments and biological substances - Suicidal ideations - Schizoaffective disorder, unspecified - Allergy status to sulfonamides - Other retirement (current) drug therapy - prison (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 of 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 - Gastro-esophageal reflux disease without esophagitis - 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ogical condition - Essential (primary) hypertension 05/03/2022 11:39 [facility] [place] TYPE: Emergency COMPLAINT: - MEDICAL CLEARANCE DIAGNOSES: - Allergy status to other drugs, medicaments and biological substances - Other retirement (current) drug therapy - Hyperglycemia, unspecified - Poisoning by other antipsychotics and neuroleptics, intentional self-harm, initial encounter - Essential (primary) hypertension - Type 2 diabetes mellitus with hyperglycemia - Allergy status to sulfonamides 04/20/2022 14:14 [facility] [place] TYPE: Emergency COMPLAINT: - MEDICAL CLEARANCE DIAGNOSES: - Essential (primary) hypertension - Allergy status to sulfonamides - Contact with and (suspected) exposure to COVID-19 - Other clock mechanic (current) drug therapy - Gastro-esophageal reflux disease without esophagitis - Allergy status to other drugs, medicaments and biological substances - Suicidal ideations - Schizoaffective disorder, unspecified 04/08/2022 15:11 [facility] [place] TYPE: Emergency COMPLAINT: - SUICIDAL IDEATIONS INPATIENT VISIT TRACKING (12 MO.) 12/04/2022 15:52 [facility] [place] TYPE: Psychiatric Services DIAGNOSES: 0. Schizoaffective disorder, depressive type 0. Schizoaffective disorder, bipolar type 1. Schizoaffective disorder, bipolar type 2. Gastro-esophageal reflux disease without esophagitis 2. Other specific personality disorders 2. Underdosing of other antipsychotics and neuroleptics, initial encounter 2. Suicidal ideations 2. Patient's other noncompliance with medication regimen 2. prison (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 of 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 2. Personal history of suicidal behavior 2. Cardiomegaly 2. Presence of aortocoronary bypass graft 2. Essential (primary) hypertension 2. Type 2 diabetes mellitus without complications 05/10/2022 18:40 [facility] [place] TYPE: Psychiatric Services DIAGNOSES: [...] Suicidal ideations 2. Other specific personality disorders [email or web address]
[2023-01-20] MEDS ORDERED: SERTRALINE HCL100 MG PO (10:28)
[2023-01-20] MEDS ORDERED: ARIPIPRAZOLE15 MG PO (10:28)
[2023-01-20] MEDS ORDERED: GABAPENTIN600 MG PO (10:28)
[2023-01-20] MEDS ORDERED: AMOX TR-K CLV1 EAC1 PO (10:28)
[2023-01-20] MEDS ORDERED: ONDANSETRON HCL4 MG PO (13:24)
[2023-01-20] MEDS ORDERED: METRONIDAZOLE500 MG PO (13:24)
[2023-01-20] MEDS ORDERED: LOMOTIL TABLET1 EACH PO (13:24)
--- NOTE | 2023-01-21 21:27 | EKG ---
[facility] [address] [place] [address] Signed Normal sinus rhythm Left axis deviation Inferior infarct, old, noted on 11/27/22 EKG Anteroseptal infarct , old, noted on 11/27/22 EKG. Left bundle branch block , old Abnormal ECG When compared with ECG of 27-NOV-2022 20:23, No significant change was found Confirmed by GAYLE MUÑOZ MD ([id number]) on 01/21/2023 9:27:34 PM Electronically Signed By: GAYLE MUÑOZ MD 01/21/232126 PATIENT NAME: BERNARDA ALARCON Electrocardiogram DATE OF : 55 PHYSICIAN: GAYLE MUÑOZ MD REPORT #: [id number] REPORT IS CONFIDENTIAL AND NOT TO BE RELEASED WITHOUT AUTHORIZATION
== END 2023-01-20 13:38 | disposition home or self-care (01) ==
LOC: ED 10:18
DX: U07.1 COVID-19 (principal); E86.0 Dehydration; R55 Syncope and collapse; I10 Essential (primary) hypertension; K21.9 Gastro-esophageal reflux disease without esophagitis; E11.9 Type 2 diabetes mellitus without complications; Z88.2 Allergy status to sulfonamides; Z88.8 Allergy status to other drugs, medicaments and biological substances; Z79.899 Other long term (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
CPT/HCPCS: 36415; 71045; 74176; 80053; 81003; 84484; 85025; 87493; 87502; 93005; 93010; 99285-25; J7030; U0003

== ENCOUNTER 2023-01-21 02:07 | Emergency (ER) | payer MEDICARE ==
[~2023-01-21] VITALS: Ht 170.2 cm; Wt 68.1 kg
[~2023-01-21 02:07] MED LIST changes: +AMOX TR-K CLV1 EAC1 PO; +ARIPIPRAZOLE15 MG PO; +LOMOTIL TABLET1 EACH PO; +ONDANSETRON HCL4 MG PO; +SERTRALINE HCL100 MG PO
--- OUTSIDE RECORDS SUMMARY | 2023-01-21 02:09 | XMS ---
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 - Patient with suicidal and/or homicidal ideations eloped. - Patient eloped with IV in place. Details: PATIENT LWBS CRITERIA MET - [facility] - 2 Visits in 30 Days - [facility] - Has Care Guidelines - 6 ED Visits in 6 Months - [facility] CARE PROVIDERS WAYNE CAMARGO Internal Medicine 09/07/2019-Current PHONE: Unknown SMITH CAMACHO Counselor: Mental Health 05/21/2020-Current PHONE: [phone] Kenny Palafox [facility] Current PHONE: Unknown ANGELICA MELVIN Internal Medicine: Pulmonary Disease 05/21/2020-Current PHONE: Unknown Jose Ag [facility] 01/31/2019-Current PHONE: [phone] Care Guidelines exist for the following facilities: [facility] ( 07/06/2021 ) Care History Medical/Surgical 12/21/2021 [facility] - Patient is currently established with [facility]. If patient is seen in the ED during business hours. Please contact CHWs at [facility]. Care Recommendation: If this patient has [...] TO DR DOMINGUEZ IF NEEDED. DR DOMINGUEZ [phone] 05/26/2020 [facility] Patient stated that she was having chest discomfort and called [facility] and they told her to go to ED. Patient has a televisit with Dr. Dominguez on 05/27/2020 at 8:40 am. E.D. VISIT COUNT ([address] 13 [facility] TOTAL 13 NOTE: Visits indicate total known visits. ED/UCC VISIT TRACKING (12 MO.) 01/21/2023 02:07 [facility] [place] TYPE: Emergency COMPLAINT: - WEAKNESS 01/20/2023 10:18 [facility] [place] TYPE: Emergency COMPLAINT: - WEAKNESS 12/25/2022 18:03 [facility] [place] TYPE: Emergency COMPLAINT: - FEVER,COUGH AND SOB DIAGNOSES: - Gastro-esophageal reflux disease without esophagitis - Shortness of breath - Viral infection, unspecified - Type 2 diabetes mellitus without complications - Allergy status to sulfonamides - Allergy status to other drugs, medicaments and biological substances - Essential (primary) hypertension - Contact with and (suspected) exposure to COVID-19 - Other senior care (current) drug therapy 12/03/2022 11:25 [facility] [place] TYPE: Emergency COMPLAINT: - SUICIDAL IDEATIONS DIAGNOSES: - Suicidal ideations - Delusional disorders - Gastro-esophageal reflux disease without esophagitis - Type 2 diabetes mellitus without complications - Other senior care (current) drug therapy - Allergy status to other drugs, medicaments and biological substances - Essential (primary) hypertension - Allergy status to sulfonamides - Contact with and (suspected) exposure to COVID-19 [facility]22 [facility] COMPLAINT: - CHEST PAIN DIAGNOSES: - Other chest pain - Other senior care (current) drug therapy - Type 2 diabetes mellitus without complications - Essential (primary) hypertension - Old myocardial infarction - Allergy status to sulfonamides - Gastro-esophageal reflux disease without esophagitis - Allergy status to other drugs, medicaments and biological substances 11/22/2022 09:12 [facility] COMPLAINT: - CHEST PAIN DIAGNOSES: - 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ogical condition - Allergy status to sulfonamides - Type 2 diabetes mellitus without complications - Allergy status to other drugs, medicaments and biological substances - Gastro-esophageal reflux disease without esophagitis - Precordial pain - Essential (primary) hypertension - Other senior care (current) drug therapy 11/11/2022 09:53 [facility] [place] TYPE: Emergency COMPLAINT: - POSS OVERDOSE DIAGNOSES: - Contact with and (suspected) exposure [...] - Reaction to severe stress, unspecified - custodial (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 of 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 06/07/2022 11:34 [facility] [place] TYPE: Emergency COMPLAINT: - FALL DIAGNOSES: - Nondisplaced transverse fracture of right patella, [...] unspecified, initial encounter - Essential (primary) hypertension 05/26/2022 12:41 [facility] [place] TYPE: Emergency COMPLAINT: - OD INTENTIONAL DIAGNOSES: - Allergy status to narcotic agent [...] drugs - Schizoaffective disorder, unspecified - Other senior care (current) drug therapy 05/10/2022 06:07 [facility] [place] TYPE: Emergency COMPLAINT: - ALTERED DIAGNOSES: - Gastro-esophageal reflux disease without esophagitis [...] Other senior care (current) drug therapy - 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 05/03/2022 11:39 [facility] [place] TYPE: Emergency COMPLAINT: - MEDICAL CLEARANCE DIAGNOSES: - Allergy status to sulfonamides - Allergy status to other drugs, medicaments and biological substances - Other senior care (current) drug therapy - Hyperglycemia, unspecified - Poisoning by other antipsychotics and neuroleptics, intentional self-harm, initial encounter - Essential (primary) hypertension - Type 2 diabetes mellitus with hyperglycemia 04/20/2022 14:14 [facility] [place] TYPE: Emergency COMPLAINT: - MEDICAL CLEARANCE DIAGNOSES: - Schizoaffective disorder, unspecified - Essential (primary) hypertension - Allergy status to sulfonamides - Contact with and (suspected) exposure to COVID-19 - Other senior care (current) drug therapy - Gastro-esophageal reflux disease without esophagitis - Allergy status to other drugs, medicaments and biological substances - Suicidal ideations 04/08/2022 15:11 [facility] [place] TYPE: Emergency COMPLAINT: - SUICIDAL IDEATIONS INPATIENT VISIT TRACKING (12 MO.) 12/04/2022 15:52 [facility] [place] TYPE: Psychiatric Services DIAGNOSES: 0. Schizoaffective disorder, bipolar type 0. Schizoaffective disorder, depressive type 1. Schizoaffective disorder, bipolar type 2. Essential (primary) hypertension 2. Type 2 diabetes mellitus without complications 2. Gastro-esophageal reflux disease without esophagitis 2. Other specific personality disorders 2. Underdosing of other antipsychotics and neuroleptics, initial encounter 2. Suicidal ideations 2. Patient's other noncompliance with medication regimen 2. 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 Personal history of suicidal behavior 2. Cardiomegaly 2. Presence of aortocoronary bypass graft 05/10/2022 18:40 [facility] [place] TYPE: Psychiatric Services DIAGNOSES: 0. Major depressive disorder, recurrent severe without psychotic features 0. 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ogical condition 1. Major depressive disorder, recurrent severe without psychotic features 1. Schizoaffective disorder, bipolar type 2. Bariatric surgery status 2. Suicidal ideations 2. Other specific personality disorders 2. Underdosing of tetracyclic antidepressants, subsequent encounter 2. Patient's other noncompliance with medication regimen 2. Essential (primary) hypertension 2. Gastro-esophageal reflux disease without esophagitis 2. Transient cerebral ischemic attack, unspecified 2. Type 2 diabetes mellitus without complications 2. Underdosing of iminostilbenes, subsequent encounter 2. Personal history of suicidal behavior 2. Cardiomegaly [email or web address]
== END 2023-01-21 04:27 | disposition home or self-care (01) ==
LOC: ED 02:07
DX: R19.7 Diarrhea, unspecified (principal); I10 Essential (primary) hypertension; K21.9 Gastro-esophageal reflux disease without esophagitis; E11.9 Type 2 diabetes mellitus without complications; Z88.2 Allergy status to sulfonamides; Z88.8 Allergy status to other drugs, medicaments and biological substances; Z79.899 Other long term (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
CPT/HCPCS: 99284

== ENCOUNTER 2023-06-25 14:04 | Emergency (ER) | payer MEDICARE ==
[~2023-06-25] VITALS: Ht 170.2 cm; Wt 77.1 kg
--- OUTSIDE RECORDS SUMMARY | ~2023-06-25 | XMS | Continuity of Care Document ---
Demographics + + + | Address | [address] | | | [place] [address] | + + + | Preferred Language | Unknown | + + + | Marital Status | | + + + | Catholic Affiliation | Unknown | + + + | Race | White | + + + | Ethnic Group | Unknown | + + + Author + + + | Author | [place] | + + + | Organization | [place] | + + + | Address | [address] | | | [place] [address] | + + + | Phone | | + + + Care Team Providers + + + + | Care Construction Sales Manager Name | Role | Phone | + + + + Unavailable | Unavailable | + + + + Allergies and Intolerances + + + + + + | date | description | facility | reaction | severity | + + + + + + | (no date) | | [facility] | (no reaction) | (no severity) | | | prochlorperazin | | | | | | e maleate | | | | + + + + + + | (no date) | duloxetine HCl | [facility] | (no reaction) | (no severity) | | | | | | | + + + + + + | (no date) | Sulfa | [facility] | (no reaction) | (no severity) | | | (Sulfonamide | | | | | | Antibiotics) | | | | + + + + + + | (no date) | haloperidol | [facility] | (no reaction) | (no severity) | + + + + + + | (no date) | promethazine | [facility] | (no reaction) | (no severity) | + + + + + + | (no date) | fluoxetine | [facility] | (no reaction) | (no severity) | + + + + + + | (no date) | meperidine | [facility] | (no reaction) | (no severity) | + + + + + + | (no date) | topiramate | [facility] | (no reaction) | (no severity) | + + + + + + Encounters No information. Functional Status No information. Immunizations No information. Medications No information. Problems + + + + | date | description | facility | + + + + | 2023-01-20 10:18 | TYPE 2 DIABETES MELLITUS | [facility] | | | WITHOUT COMPLICATIONS | | + + + + | 2023-01-20 10:18 | DEHYDRATION | [facility] | + + + + | 2023-01-20 10:18 | Essential (primary) | [facility] | | | hypertension | | + + + + | 2023-01-20 10:18 | GASTRO-ESOPHAGEAL REFLUX | [facility] | | | DISEASE WITHOUT ESOPHAGIT | | + + + + | 2023-01-20 10:18 | DIARRHEA, UNSPECIFIED | [facility] | + + + + | 2023-01-20 10:18 | Syncope and collapse | [facility] | + + + + | 2023-01-20 10:18 | COVID-19 | [facility] | + + + + | 2023-01-20 10:18 | OTHER CHIEF TECHNOLOGIST (CURRENT) | [facility] | | | DRUG THERAPY | | + + + + | 2023-01-20 10:18 | ALLERGY STATUS TO | [facility] | | | SULFONAMIDES STATUS | | + + + + | 2023-01-20 10:18 | ALLERGY STATUS TO OTH | [facility] | | | DRUG/MEDS/BIOL SUBST STATUS | | | | | | + + + + | 2023-03-31 17:23 | ENTEROCOLITIS D/T | [facility] | | | CLOSTRIDIUM DIFFICILE, NOT | | | | SPCF RECUR | | + + + + | 2023-04-06 14:04 | TYPE 2 DIABETES MELLITUS | [facility] | | | WITH HYPERGLYCEMIA | | + + + + | 2023-04-06 14:04 | Essential (primary) | [facility] | | | hypertension | | + + + + | 2023-04-06 14:04 | BARIATRIC SURGERY STATUS | [facility] | + + + + | 2023-05-02 00:00 | OTH SYMPTOMS AND SIGNS | [facility] | | | INVOLVING THE | | | | MUSCULOSKELETAL SYSTEM | | + + + + Procedures No information. Results/Labs No information. Social History No information. Vital Signs No information."
--- OUTSIDE RECORDS SUMMARY | ~2023-06-25 | XMS | Continuity of Care Document ---
Demographics + + + | Address | [address] | | | [place] [address] | + + + | Preferred Language | Unknown | + + + | Marital Status | | + + + | Methodist Affiliation | Unknown | + + + | Race | White | + + + | Ethnic Group | Unknown | + + + Author + + + | Author | [facility] | + + + | Organization | [facility] | + + + | Address | [address] | | | [place] [address] | + + + | Phone | | + + + Care Team Providers + + + + | Care Homeland Security Program Specialist Name | Role | Phone [...] + + | 2023-01-20 10:18 | OTHER PLAYGROUND MONITOR (CURRENT) | [facility] | | | DRUG [...]
--- OUTSIDE RECORDS SUMMARY | 2023-06-25 14:08 | XMS ---
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 04/08/2022 15:11 - Patient eloped before treatment completed. - Patient with suicidal and/or homicidal ideations eloped. - Patient eloped with IV in place. Details: PATIENT LWBS CRITERIA MET - [facility] CARE PROVIDERS ANGELICA MELVIN Internal Medicine: Pulmonary Disease 05/21/2020-Current PHONE: Unknown SMITH CAMACHO Counselor: Mental Health 05/21/2020-Current PHONE: [phone] WAYNE CAMARGO Internal Medicine 09/07/2019-Current PHONE: Unknown Jose Ag Family [facility] 01/31/2019-Current PHONE: [phone] Kenny Palafox DO [facility] Current PHONE: Unknown Care Guidelines exist for the following facilities: [facility] ( 07/06/2021 ) Care History Medical/Surgical 12/21/2021 [facility] - Patient is currently established with [facility]. If patient is seen in the ED during business hours. Please contact CHWs at [facility]. Care Recommendation: If this patient has had 5 or more Emergency Department visits in the last 12 months.\T\nbsp;Patient will require education on the scope and purpose of the ED as an acute care provider not a Primary Care Provider and should not be utilized for chronic conditions.\T\nbsp; These are guidelines and the provider should exercise clinical judgment when providing care. 06/02/2020 [facility] - LETTER FROM PATIENT PCP- DR DOMINGUEZ [...] TO DR DOMINGUEZ IF NEEDED. DR DOMINGUEZ [phone] 05/26/2020 [facility] Patient stated that she was having chest discomfort and called [facility] and they told her to go to ED. Patient has a televisit with Dr. Dominguez on 05/27/2020 at 8:40 am. E.D. VISIT COUNT (12 MO.) 9 [facility]. TOTAL 9 NOTE: Visits indicate total known visits. ED/UCC VISIT TRACKING (12 MO.) 06/25/2023 14:04 [facility] [place] TYPE: Emergency COMPLAINT: - POSS BUG BITE 02/02/2023 12:00 [facility] [place] TYPE: Emergency COMPLAINT: - SHORTNESS OF BREATH DIAGNOSES: - Allergy status to other drugs, medicaments and biological substances - Allergy status to sulfonamides - Essential (primary) hypertension - Gastro-esophageal reflux disease without esophagitis - 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 (current) drug therapy - Other specified diabetes mellitus without complications - Shortness of breath 01/21/2023 02:07 [facility] [place] TYPE: Emergency COMPLAINT: - WEAKNESS DIAGNOSES: - Allergy status to other drugs, medicaments and biological substances - Allergy status to sulfonamides - Diarrhea, unspecified - Essential (primary) hypertension - Gastro-esophageal reflux disease without esophagitis - 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 (current) drug therapy - Type 2 diabetes mellitus without complications 01/20/2023 10:[address] [facility] [place] TYPE: Emergency COMPLAINT: - WEAKNESS DIAGNOSES: - Allergy status to other drugs, medicaments and biological substances - Allergy status to sulfonamides - COVID-19 - Dehydration - Diarrhea, unspecified - Essential (primary) hypertension - Gastro-esophageal reflux disease without esophagitis - 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 (current) drug therapy - Syncope and collapse - Type 2 diabetes mellitus without complications 12/25/2022 18:03 [facility] [place] TYPE: Emergency COMPLAINT: - FEVER,COUGH AND SOB DIAGNOSES: - Allergy status to other drugs, medicaments and biological substances - Allergy status to sulfonamides - Contact with and (suspected) exposure to COVID-19 - Essential (primary) hypertension - Gastro-esophageal reflux disease without esophagitis - 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 (current) drug therapy - Shortness of breath - Type 2 diabetes mellitus without complications - Viral infection, unspecified 12/03/2022 11:25 [facility] [place] TYPE: Emergency COMPLAINT: - SUICIDAL IDEATIONS DIAGNOSES: - Allergy status to other drugs, medicaments and biological substances - Allergy status to sulfonamides - Contact with and (suspected) exposure to COVID-19 - Delusional disorders - Essential (primary) hypertension - Gastro-esophageal reflux disease without esophagitis - 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 (current) drug therapy - Suicidal ideations - Type 2 diabetes mellitus without complications 11/27/2022 20:20 [facility] [place] TYPE: Emergency COMPLAINT: - CHEST PAIN DIAGNOSES: - Allergy status to other drugs, medicaments and biological substances - Allergy status to sulfonamides - Essential (primary) hypertension - Gastro-esophageal reflux disease without esophagitis - Old myocardial infarction - Other chest pain - 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 (current) drug therapy - Type 2 diabetes mellitus without complications 11/22/2022 09:12 [facility] [place] [facility] COMPLAINT: - CHEST PAIN DIAGNOSES: - Allergy status to other drugs, medicaments and biological substances - Allergy status to sulfonamides - Essential (primary) hypertension - Gastro-esophageal reflux disease without esophagitis - 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 (current) drug therapy - Precordial pain - Type 2 diabetes mellitus without complications - 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ogical condition 11/11/2022 09:53 [facility] [place] [facility] COMPLAINT: - POSS OVERDOSE DIAGNOSES: - Allergy status to narcotic agent - Allergy status to other drugs, medicaments and biological substances - Allergy status to sulfonamides - Bariatric surgery status - Cardiomegaly - Contact with and (suspected) exposure to COVID-19 - Delusional disorders - Diabetes mellitus due to underlying condition with hyperglycemia - Diabetes mellitus due to underlying condition without complications - Essential (primary) hypertension - Gastro-esophageal reflux disease without esophagitis - Hyperglycemia, unspecified - [facility] (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 of 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 - 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 (current) drug therapy - Personal history of transient ischemic attack (TIA), and cerebral infarction without residual deficits - Poisoning by other antipsychotics and neuroleptics, intentional self-harm, initial encounter - Reaction to severe stress, unspecified - Schizoaffective disorder, unspecified INPATIENT VISIT TRACKING (12 MO.) 12/04/2022 15:52 [facility] [place] TYPE: Psychiatric Services DIAGNOSES: 0. Schizoaffective disorder, bipolar type 0. Schizoaffective disorder, depressive type 1. Schizoaffective disorder, bipolar type 2. Cardiomegaly 2. Essential (primary) hypertension 2. 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 Other specific personality disorders 2. Patient's other noncompliance with medication regimen 2. Personal history of suicidal behavior 2. Presence of aortocoronary bypass graft 2. Suicidal ideations 2. Type 2 diabetes mellitus without complications 2. Underdosing of other antipsychotics and neuroleptics, initial encounter [email or web address]
[2023-06-25] MEDS ORDERED: CEPHALEXIN500 M1 PO (18:07)
[2023-06-25 18:16] VITALS: BP 131/79
== END 2023-06-25 18:15 | disposition home or self-care (01) ==
LOC: ED 14:04
DX: S00.01XA Abrasion of scalp, initial encounter (principal); I10 Essential (primary) hypertension; Z88.2 Allergy status to sulfonamides; Z88.8 Allergy status to other drugs, medicaments and biological substances; X58.XXXA Exposure to other specified factors, initial encounter
CPT/HCPCS: 99282

== ENCOUNTER 2023-06-30 09:03 | Emergency (ER) | payer MEDICARE, OTHER ==
[~2023-06-30] VITALS: Ht 170.2 cm; Wt 108.5 kg
--- OUTSIDE RECORDS SUMMARY | ~2023-06-30 | XMS | Continuity of Care Document ---
Demographics + + + | Address | [address] [facility] [address] | | | [place] [address] | + + + | Preferred Language | Unknown | + + + | Marital Status | | + + + | Faith Affiliation | Unknown | + + + | Race | White | + + + | Ethnic Group | Unknown | + + + Author + + + | Author | [facility] | + + + | Organization | [facility] | + + + | Address | [address] | | | [place] [address] | + + + | Phone | | + + + Care Team Providers + + + + | Care Director On Air Name | Role | Phone | + [...] facility | + + + + | 2022-08-25 10:46 | UNSP FX RIGHT PATELLA, | [facility] | | | SUBS FOR CLOS FX W ROUTN | | | | HEAL | | + + + + | 2022-11-11 09:53 | DIABETES DUE TO UNDERLYING | [facility] | | | CONDITION W HYPERGLYCEM | | + + + + | 2022-11-11 09:53 | Delusional disorders | [facility] | + + + + | 2022-11-11 09:53 | SCHIZOAFFECTIVE DISORDER, | [facility] | | | UNSPECIFIED | | + + + + | 2022-11-11 09:53 | REACTION TO SEVERE STRESS, | [facility] | | | UNSPECIFIED | | + + + + | 2022-11-11 09:53 | Essential (primary) | [facility] | | | hypertension | | + + + + | 2022-11-11 09:53 | CARDIOMEGALY | [facility] | + + + + | 2022-11-11 09:53 | GASTRO-ESOPHAGEAL REFLUX | [facility] | | | DISEASE WITHOUT ESOPHAGIT | | + + + + | 2022-11-11 09:53 | 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, | | | | SELF-HARM, INIT | | + + + + | 2022-11-11 09:53 | OCCUPATIONAL THERAPIST ASSISTANTS (CURRENT) USE OF | [facility] | | | ORAL HYPOGLYCEMIC DRUGS | | + + + + | 2022-11-11 09:53 | OTHER OCCUPATIONAL THERAPIST ASSISTANTS (CURRENT) | [facility] | | | DRUG THERAPY | | + + + + | 2022-11-11 09:53 | PRSNL HX OF TIA (TIA), AND | [facility] | | | CEREB INFRC W/O RESID D | | + + + + | 2022-11-11 09:53 | ALLERGY STATUS TO | [facility] | | | SULFONAMIDES STATUS | | + + + + | 2022-11-11 09:53 | ALLERGY STATUS TO NARCOTIC | [facility] | | | AGENT STATUS | | + + + + | 2022-11-11 09:53 | ALLERGY STATUS TO OTH | [facility] | | | DRUG/MEDS/BIOL SUBST STATUS | | | | | | + + + + | 2022-11-11 09:53 | BARIATRIC SURGERY STATUS | [facility] | + + + + | 2022-11-22 09:12 | TYPE 2 DIABETES MELLITUS | [facility] | | | WITHOUT COMPLICATIONS | | + + + + | 2022-11-22 09:12 | Schizophrenia, schizotypal, | [facility] | | | delusional, and other | | | | non-mood psychotic | | | | disorders ([id number]) | | + + + + | 2022-11-22 09:12 | Essential (primary) | [facility] | | | hypertension | | + + + + | 2022-11-22 09:12 | GASTRO-ESOPHAGEAL REFLUX | [facility] | | | DISEASE WITHOUT ESOPHAGIT | | + + + + | 2022-11-22 09:12 | PRECORDIAL PAIN | [facility] | + + + + | 2022-11-22 09:12 | OTHER OCCUPATIONAL THERAPIST ASSISTANTS (CURRENT) | [facility] | | | DRUG THERAPY | | + + + + | 2022-11-22 09:12 | ALLERGY STATUS TO | [facility] | | | SULFONAMIDES STATUS | | + + + + | 2022-11-22 09:12 | ALLERGY STATUS TO OTH | [facility] | | | DRUG/MEDS/BIOL SUBST STATUS | | | | | | + + + + | 2022-11-27 20:20 | TYPE 2 DIABETES MELLITUS | [facility] | | | WITHOUT COMPLICATIONS | | + + + + | 2022-11-27 20:20 | Essential (primary) | [facility] | | | hypertension | | + + + + | 2022-11-27 20:20 | OLD MYOCARDIAL INFARCTION | [facility] | + + + + | 2022-11-27 20:20 | GASTRO-ESOPHAGEAL REFLUX | [facility] | | | DISEASE WITHOUT ESOPHAGIT | | + + + + | 2022-11-27 20:20 | OTHER CHEST PAIN | [facility] | + + + + | 2022-11-27 20:20 | OTHER ASSISTED (CURRENT) | [facility] | | | DRUG THERAPY | | + + + + | 2022-11-27 20:20 | ALLERGY STATUS TO | [facility] | | | SULFONAMIDES STATUS | | + + + + | 2022-11-27 20:20 | ALLERGY STATUS TO OTH | [facility] | | | DRUG/MEDS/BIOL SUBST STATUS | | | | | | + + + + | 2022-12-03 11:25 | TYPE 2 DIABETES MELLITUS | [facility] | | | WITHOUT COMPLICATIONS | | + + + + | 2022-12-03 11:25 | Delusional disorders | [facility] | + + + + | 2022-12-03 11:25 | Essential (primary) | [facility] | | | hypertension | | + + + + | 2022-12-03 11:25 | GASTRO-ESOPHAGEAL REFLUX | [facility] | | | DISEASE WITHOUT ESOPHAGIT | | + + + + | 2022-12-03 11:25 | SUICIDAL IDEATIONS | [facility] | + + + + | 2022-12-03 11:25 | OTHER ASSISTED (CURRENT) | [facility] | | | DRUG THERAPY | | + + + + | 2022-12-03 11:25 | ALLERGY STATUS TO | [facility] | | | SULFONAMIDES STATUS | | + + + + | 2022-12-03 11:25 | ALLERGY STATUS TO OTH | [facility] | | | DRUG/MEDS/BIOL SUBST STATUS | | | | | | + + + + | 2022-12-25 18:03 | VIRAL INFECTION, | [facility] | | | UNSPECIFIED | | + + + + | 2022-12-25 18:03 | TYPE 2 DIABETES MELLITUS | [facility] | | | WITHOUT COMPLICATIONS | | + + + + | 2022-12-25 18:03 | Essential (primary) | [facility] | | | hypertension | | + + + + | 2022-12-25 18:03 | GASTRO-ESOPHAGEAL REFLUX | [facility] | | | DISEASE WITHOUT ESOPHAGIT | | + + + + | 2022-12-25 18:03 | SHORTNESS OF BREATH | [facility] | + + + + | 2022-12-25 18:03 | OTHER OCCUPATIONAL THERAPIST ASSISTANTS (CURRENT) | [facility] | | | DRUG THERAPY | | + + + + | 2022-12-25 18:03 | ALLERGY STATUS TO | [facility] | | | SULFONAMIDES STATUS | | + + + + | 2022-12-25 18:03 | ALLERGY STATUS TO OTH | [facility] [...] + + | 2023-01-20 10:18 | OTHER ASSISTED (CURRENT) | [facility] | | | DRUG THERAPY | | + + + + | 2023-01-20 10:18 | ALLERGY STATUS TO | [facility] | | | SULFONAMIDES STATUS | | + + + + | 2023-01-20 10:18 | ALLERGY STATUS TO OTH | [facility] | | | DRUG/MEDS/BIOL SUBST STATUS | | | | | | + + + + | 2023-01-21 02:07 | TYPE 2 DIABETES MELLITUS | [facility] | | | WITHOUT COMPLICATIONS | | + + + + | 2023-01-21 02:07 | Essential (primary) | [facility] | | | hypertension | | + + + + | 2023-01-21 02:07 | GASTRO-ESOPHAGEAL REFLUX | [facility] | | | DISEASE WITHOUT ESOPHAGIT | | + + + + | 2023-01-21 02:07 | DIARRHEA, UNSPECIFIED | [facility] | + + + + | 2023-01-21 02:07 | OTHER ASSISTED (CURRENT) | [facility] | | | DRUG THERAPY | | + + + + | 2023-01-21 02:07 | ALLERGY STATUS TO | [facility] | | | SULFONAMIDES STATUS | | + + + + | 2023-01-21 02:07 | ALLERGY STATUS TO OTH | [facility] | | | DRUG/MEDS/BIOL SUBST STATUS | | | | | | + + + + | 2023-02-02 12:00 | OTHER SPECIFIED DIABETES | [facility] | | | MELLITUS WITHOUT COMPLICA | | + + + + | 2023-02-02 12:00 | Essential (primary) | [facility] | | | hypertension | | + + + + | 2023-02-02 12:00 | GASTRO-ESOPHAGEAL REFLUX | [facility] | | | DISEASE WITHOUT ESOPHAGIT | | + + + + | 2023-02-02 12:00 | SHORTNESS OF BREATH | [facility] | + + + + | 2023-02-02 12:00 | OTHER ASSISTED (CURRENT) | [facility] | | | DRUG THERAPY | | + + + + | 2023-02-02 12:00 | ALLERGY STATUS TO | [facility] | | | SULFONAMIDES STATUS | | + + + + | 2023-02-02 12:00 | ALLERGY STATUS TO OTH | [facility] [...]
[~2023-06-30 09:03] MED LIST changes: +CEPHALEXIN500 M1 PO
--- OUTSIDE RECORDS SUMMARY | 2023-06-30 09:07 | XMS ---
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 Security Dimension Specification Inspector Events 1 event(s) in the past 18 months Most recent security events: Elopement at [facility] 04/08/2022 15:11 - Patient eloped before treatment completed. - Patient with suicidal and/or homicidal ideations eloped. - Patient eloped with IV in place. Details: PATIENT LWBS CRITERIA MET - PDMP - [facility] - 2 Visits in 30 Days CARE PROVIDERS ANGELICA MELVIN Internal Medicine: Pulmonary Disease 05/21/2020-Current PHONE: Unknown SMITH CAMACHO Counselor: Mental Health 05/21/2020-Current PHONE: [phone] WAYNE CAMARGO Internal Medicine 09/07/2019-Current PHONE: Unknown Jose Ag [facility] 01/31/2019-Current PHONE: [phone] Kenny Palafox DO [facility] Current PHONE: Unknown Care Guidelines exist for the following facilities: [facility] ( 07/06/2021 ) Care History Medical/Surgical 12/21/2021 [facility] - Patient is currently established with [facility]. If patient is seen in the ED during business hours. Please contact CHWs at [facility]. Care Recommendation: If this patient has had 5 or more Emergency Department visits in the last 12 months.\T\nbsp;Patient will require education on the scope and purpose of the ED as an acute care provider not a Primary Care Provider and should not be utilized for chronic conditions.\T\nbsp; These are guidelines and the provider should exercise clinical judgment when providing care. 06/02/2020 [facility] - LETTER FROM PATIENT PCP- [...] TO DR DOMINGUEZ IF NEEDED. DR DOMINGUEZ [phone] 05/26/2020 [facility] Patient stated that she was having chest discomfort and called [facility] and they told her to go to ED. Patient has a televisit with Dr. Dominguez on 05/27/2020 at 8:40 am. E.D. VISIT COUNT (12 MO.) 10 [facility]. TOTAL 10 NOTE: Visits indicate total known visits. ED/UCC VISIT TRACKING (12 MO.) 06/30/2023 09:03 [facility] [place] TYPE: Emergency COMPLAINT: - DIFFICULTY BREATHING 06/25/2023 14:04 [facility] [place] TYPE: Emergency COMPLAINT: - POSS BUG BITE DIAGNOSES: - Abrasion of scalp, initial encounter - Allergy status to other drugs, medicaments and biological substances - Allergy status to sulfonamides - Essential (primary) hypertension - Exposure to other specified factors, initial encounter - Other specified soft tissue disorders 02/02/2023 12:00 [facility] [place] TYPE: Emergency COMPLAINT: - SHORTNESS OF BREATH DIAGNOSES: - Allergy status to other drugs, medicaments and biological substances - Allergy status to sulfonamides - Essential (primary) hypertension - Gastro-esophageal reflux disease without esophagitis - Other intermission coordinator (current) drug therapy - Other specified diabetes mellitus without complications - Shortness of breath 01/21/2023 02:07 [facility] [place] [facility] COMPLAINT: - WEAKNESS DIAGNOSES: - Allergy status to other drugs, medicaments and biological substances - Allergy status to sulfonamides - Diarrhea, unspecified - Essential (primary) hypertension - Gastro-esophageal reflux disease without esophagitis - Other nursing home (current) drug therapy - Type 2 diabetes mellitus without complications 01/20/2023 10:18 [facility] [place] [facility] COMPLAINT: - WEAKNESS DIAGNOSES: - Allergy status to other drugs, medicaments and biological substances - Allergy status to sulfonamides - COVID-19 - Dehydration - Diarrhea, unspecified - Essential (primary) hypertension - Gastro-esophageal reflux disease without esophagitis - Other intermission coordinator (current) drug therapy - Syncope and collapse - Type 2 diabetes mellitus without complications 12/25/2022 18:03 [facility] [place] [facility] COMPLAINT: - FEVER,COUGH AND SOB DIAGNOSES: - Allergy status to other drugs, medicaments and biological substances - Allergy status to sulfonamides - Contact with and (suspected) exposure to COVID-19 - Essential (primary) hypertension - Gastro-esophageal reflux disease without esophagitis - Other nursing home (current) drug therapy - Shortness of breath - Type 2 diabetes mellitus without complications - Viral infection, unspecified 12/03/2022 11:[address] [facility] [address] [place] TYPE: Emergency COMPLAINT: - SUICIDAL IDEATIONS DIAGNOSES: - Allergy status to other drugs, medicaments and biological substances - Allergy status to sulfonamides - Contact with and (suspected) exposure to COVID-19 - Delusional disorders - Essential (primary) hypertension - Gastro-esophageal reflux disease without esophagitis - Other nursing home (current) drug therapy - Suicidal ideations - Type 2 diabetes mellitus without complications 11/27/2022 20:20 [facility] [place] TYPE: Emergency COMPLAINT: - CHEST PAIN DIAGNOSES: - Allergy status to other drugs, medicaments and biological substances - Allergy status to sulfonamides - Essential (primary) hypertension - Gastro-esophageal reflux disease without esophagitis - Old myocardial infarction - Other chest pain - Other nursing home (current) drug therapy - Type 2 diabetes mellitus without complications 11/22/2022 09:[address] [facility] [address] [place] TYPE: Emergency COMPLAINT: - CHEST PAIN DIAGNOSES: - Allergy status to other drugs, medicaments and biological substances - Allergy status to sulfonamides - Essential (primary) hypertension - Gastro-esophageal reflux disease without esophagitis - Other nursing home (current) drug therapy - Precordial pain - Type 2 diabetes mellitus without complications - 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ogical condition 11/11/2022 09:53 [facility] [place] TYPE: Emergency COMPLAINT: - POSS OVERDOSE DIAGNOSES: - Allergy status to narcotic agent - Allergy status to other drugs, medicaments and biological substances - Allergy status to sulfonamides - Bariatric surgery status - Cardiomegaly - Contact with and (suspected) exposure to COVID- - Delusional disorders - Diabetes mellitus due to underlying condition with hyperglycemia - Diabetes mellitus due to underlying condition without complications - Essential (primary) hypertension - Gastro-esophageal reflux disease without esophagitis - Hyperglycemia, unspecified - joint terminal attack controller (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 of 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 - Other nursing home (current) drug therapy - Personal history of [...] 2. Gastro-esophageal reflux disease without esophagitis 2. joint terminal attack controller (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 of 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 2. Other specific personality disorders 2. Patient's other noncompliance with medication regimen 2. Personal history of suicidal behavior 2. Presence of aortocoronary bypass graft 2. Suicidal ideations 2. Type 2 diabetes mellitus without complications 2. Underdosing of other antipsychotics and neuroleptics, initial encounter [email or web address]
[2023-06-30 10:28] LABS: INFLUENZA B NAA NEGATIVE (NEGATIVE); RESPIRATORY SYNCYTIAL VIR NAA NEGATIVE (NEGATIVE)
[2023-06-30] MEDS ORDERED: ZITHROMAX250 MG PO (10:42)
[2023-06-30] MEDS ORDERED: PREDNISONE20 MG PO (10:42)
[2023-06-30 11:03] VITALS: BP 128/64
== END 2023-06-30 11:04 | disposition home or self-care (01) ==
LOC: ED 09:03
PROVIDERS: Emergency Medicine
DX: J45.909 Unspecified asthma, uncomplicated (principal); Z20.822 Contact with and (suspected) exposure to COVID-19; I10 Essential (primary) hypertension; K21.9 Gastro-esophageal reflux disease without esophagitis; Z88.2 Allergy status to sulfonamides; Z88.8 Allergy status to other drugs, medicaments and biological substances; Z79.899 Other long term (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
CPT/HCPCS: 71045; 87502; 94640; 99285-25; C9803; U0002

== ENCOUNTER 2023-07-08 08:50 | Emergency (ER) | payer MEDICARE ==
[~2023-07-08] VITALS: Ht 170.2 cm; Wt 72.6 kg
[~2023-07-08 08:50] MED LIST changes: +COMBIVENT RESPIM4 GM INH; +PREDNISONE20 MG PO; +SPIRIVA RESPIMAT4 GM INH; +ZITHROMAX250 MG PO
--- OUTSIDE RECORDS SUMMARY | 2023-07-08 08:52 | XMS ---
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 Security Service Advisor Events 1 event(s) in the past 18 months Most recent security events: Elopement at [facility] 04/08/2022 15:11 - Patient eloped before treatment completed. - Patient with suicidal and/or homicidal ideations eloped. - Patient eloped with IV in place. Details: PATIENT LWBS CRITERIA MET - 6 ED Visits in 6 Months - [facility] - 2 Visits in 30 Days CARE PROVIDERS ANGELICA MELVIN Internal Medicine: Pulmonary Disease 05/21/2020-Current PHONE: Unknown SMITH CAMACHO Counselor: Mental Health 05/21/2020-Current PHONE: [phone] WAYNE CAMARGO Internal Medicine 09/07/2019-Current PHONE: Unknown [facility] 01/31/2019-Current PHONE: [phone] Kenny Palafox DO [facility] Current PHONE: Unknown Care Guidelines exist for the following facilities: [facility] ( 07/06/2021 ) Care History Medical/Surgical 12/21/2021 [facility] - Patient is currently established with [facility]. If patient is seen in the ED during business hours. Please contact CHWs at [facility]. Care Recommendation: If this patient [...] TO DR DOMINGUEZ IF NEEDED. DR DOMINGUEZ [phone] 05/26/2020 [facility] Patient stated that she was having chest discomfort and called [facility] and they told her to go to ED. Patient has a televisit with Dr. Dominguez on 05/27/2020 at 8:40 am. E.D. VISIT COUNT (12 MO.) 12 [facility]. TOTAL 12 NOTE: Visits indicate total known visits. ED/UCC VISIT TRACKING (12 MO.) 07/08/2023 08:50 [facility] [place] TYPE: Emergency COMPLAINT: - DIFFICULTY BREATHING, COUGH 07/06/2023 10:06 [facility] [place] TYPE: Emergency COMPLAINT: - DIFFICULTY BREATHING DIAGNOSES: - Allergy status to narcotic agent - Allergy status to other drugs, medicaments and biological substances - Allergy status to sulfonamides - Essential (primary) hypertension - Gastro-esophageal reflux disease without esophagitis - Other custodial (current) drug therapy - Other specified diabetes mellitus without complications - Schizoaffective disorder, unspecified - Shortness of breath - Unspecified chronic bronchitis 06/30/2023 09:03 [facility] [place] TYPE: Emergency COMPLAINT: - DIFFICULTY BREATHING DIAGNOSES: - Allergy status to other drugs, medicaments and biological substances - Allergy status to sulfonamides - Contact with and (suspected) exposure to COVID-19 - Dyspnea, unspecified - Essential (primary) hypertension - Gastro-esophageal reflux disease without esophagitis - Other custodial (current) drug therapy - Unspecified asthma, uncomplicated 06/25/2023 14:04 [facility] [place] TYPE: Emergency [...] Gastro-esophageal reflux disease without esophagitis - Other parts counterman (current) drug therapy - Other specified diabetes mellitus without complications - Shortness of breath 01/21/2023 02:07 [facility] [place] TYPE: Emergency COMPLAINT: - WEAKNESS DIAGNOSES: - Allergy status to other drugs, medicaments and biological substances - Allergy status to sulfonamides - Diarrhea, unspecified - Essential (primary) hypertension - Gastro-esophageal reflux disease without esophagitis - Other parts counterman (current) drug therapy - Type 2 diabetes mellitus without complications 01/20/2023 10:18 [facility] [place] TYPE: Emergency COMPLAINT: - WEAKNESS DIAGNOSES: - Allergy status to other drugs, medicaments and biological substances - Allergy status to sulfonamides - COVID-19 - Dehydration - Diarrhea, unspecified - Essential (primary) hypertension - Gastro-esophageal reflux disease without esophagitis - Other parts counterman (current) drug therapy - Syncope and collapse - Type 2 diabetes mellitus without complications 12/25/2022 18:03 [facility] [place] TYPE: Emergency COMPLAINT: - FEVER,COUGH AND SOB DIAGNOSES: - Allergy status to other drugs, medicaments and biological substances - Allergy status to sulfonamides - Contact with and (suspected) exposure to COVID-19 - Essential (primary) hypertension - Gastro-esophageal reflux disease without esophagitis - Other parts counterman (current) drug therapy - Shortness of breath - Type 2 diabetes mellitus without complications - Viral infection, unspecified 12/03/2022 11:[address] [facility] [place] TYPE: Emergency COMPLAINT: - SUICIDAL IDEATIONS DIAGNOSES: - Allergy status to other drugs, medicaments and biological substances - Allergy status to sulfonamides - Contact with and (suspected) exposure to COVID-19 - Delusional disorders - Essential (primary) hypertension - Gastro-esophageal reflux disease without esophagitis - Other parts counterman (current) drug therapy - Suicidal ideations - Type 2 diabetes mellitus without complications 11/27/2022 20:[address] [facility] [place] TYPE: Emergency COMPLAINT: - CHEST PAIN DIAGNOSES: - Allergy status to other drugs, medicaments and biological substances - Allergy status to sulfonamides - Essential (primary) hypertension - Gastro-esophageal reflux disease without esophagitis - Old myocardial infarction - Other chest pain - Other custodial (current) drug therapy - Type 2 diabetes mellitus without complications 11/22/2022 09:[address] [facility] [place] TYPE: Emergency COMPLAINT: - CHEST PAIN DIAGNOSES: - Allergy status to other drugs, medicaments and biological substances - Allergy status to sulfonamides - Essential (primary) hypertension - Gastro-esophageal reflux disease without esophagitis - Other custodial (current) drug therapy - Precordial pain - Type 2 diabetes mellitus without complications - 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ogical condition 11/11/2022 09:53 [facility] [place]: Emergency COMPLAINT: - POSS [...] disease without esophagitis - Hyperglycemia, unspecified - termite inspector (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 of 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 - Other parts counterman (current) drug therapy - Personal history of transient ischemic attack (TIA), and cerebral infarction without residual deficits - Poisoning by other antipsychotics and neuroleptics, intentional self-harm, initial encounter - Reaction to severe stress, unspecified - Schizoaffective disorder, unspecified INPATIENT VISIT TRACKING (12 MO.) 12/04/2022 15:52 [facility] [place] TYPE: Psychiatric Services DIAGNOSES: 0. Schizoaffective disorder, bipolar type 0. Schizoaffective disorder, depressive type 1. Schizoaffective disorder, bipolar type 2. Cardiomegaly 2. Essential (primary) hypertension 2. Gastro-esophageal reflux disease without esophagitis 2. 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 Other specific personality disorders 2. Patient's other noncompliance with medication regimen 2. Personal history of suicidal behavior 2. Presence of aortocoronary bypass graft 2. Suicidal ideations 2. Type 2 diabetes mellitus without complications 2. Underdosing of other antipsychotics and neuroleptics, initial encounter [email or web address]
[2023-07-08] MEDS ORDERED: PREDNISONE20 MG PO (10:41)
[2023-07-08 10:53] VITALS: BP 146/73
== END 2023-07-08 10:53 | disposition home or self-care (01) ==
LOC: ED 08:50
DX: J45.901 Unspecified asthma with (acute) exacerbation (principal); I10 Essential (primary) hypertension; K21.9 Gastro-esophageal reflux disease without esophagitis; F25.9 Schizoaffective disorder, unspecified; E13.9 Other specified diabetes mellitus without complications; Z88.2 Allergy status to sulfonamides; Z88.5 Allergy status to narcotic agent; Z88.8 Allergy status to other drugs, medicaments and biological substances; Z79.899 Other long term (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
CPT/HCPCS: 71045; 94640; 94664; 99285-25; J7512

== ENCOUNTER 2023-07-28 07:30 | Observation (INO) | payer MEDICARE ==
[~2023-07-28] VITALS: Ht 170.2 cm; Wt 107.0 kg
[2023-07-28] VITALS (18 sets, daily range): BP systolic 123–203; BP diastolic 37–97
--- OUTSIDE RECORDS SUMMARY | ~2023-07-28 | XMS | Continuity of Care Document ---
Demographics + + + | Address | [address] | | | [place] [address] | + + + | Preferred Language | Unknown | + + + | Marital Status | | + + + | Latter-Day Affiliation | Unknown | + + + | Race | White | + + + | Ethnic Group | Unknown | + + + Author + + + | Author | [facility] | + + + | Organization | [facility] | + + + | Address | [address] | | | [place] [address] | + + + | Phone | | + + + Care Team Providers + + + + | Care Car Sander Name | Role | Phone | + + + + Unavailable | Unavailable | + + + + Allergies No information. Encounters No information. Functional Status No information. Immunizations No information. Medications No information. Problems + + + + | date | description | facility | + + + + | 2023-05-02 00:00 | OTH SYMPTOMS AND SIGNS | [facility] | | | INVOLVING THE | | | | MUSCULOSKELETAL SYSTEM | | + + + + | 2023-05-25 15:32 | OTH SYMPTOMS AND SIGNS | [facility] | | | INVOLVING THE | | | | MUSCULOSKELETAL SYSTEM | | + + + + | 2023-06-25 14:04 | Essential (primary) | [facility] | | | hypertension | | + + + + | 2023-06-25 14:04 | OTHER SPECIFIED SOFT | [facility] | | | TISSUE DISORDERS | | + + + + | 2023-06-25 14:04 | ABRASION OF SCALP, INITIAL | [facility] | | | ENCOUNTER | | + + + + | 2023-06-25 14:04 | EXPOSURE TO OTHER | [facility] | | | SPECIFIED FACTORS, INITIAL | | | | ENCOU | | + + + + | 2023-06-25 14:04 | ALLERGY STATUS TO | [facility] | | | SULFONAMIDES STATUS | | + + + + | 2023-06-25 14:04 | ALLERGY STATUS TO OTH | [facility] | | | DRUG/MEDS/BIOL SUBST STATUS | | | | | | + + + + | 2023-06-30 09:03 | Essential (primary) | [facility] | | | hypertension | | + + + + | 2023-06-30 09:03 | UNSPECIFIED ASTHMA, | [facility] | | | UNCOMPLICATED | | + + + + | 2023-06-30 09:03 | GASTRO-ESOPHAGEAL REFLUX | [facility] | | | DISEASE WITHOUT ESOPHAGIT | | + + + + | 2023-06-30 09:03 | DYSPNEA, UNSPECIFIED | [facility] | + + + + | 2023-06-30 09:03 | OTHER INTERMEDIATE (CURRENT) | [facility] | | | DRUG THERAPY | | + + + + | 2023-06-30 09:03 | ALLERGY STATUS TO | [facility] | | | SULFONAMIDES STATUS | | + + + + | 2023-06-30 09:03 | ALLERGY STATUS TO OTH | [facility] | | | DRUG/MEDS/BIOL SUBST STATUS | | | | | | + + + + | 2023-07-06 10:06 | OTHER SPECIFIED DIABETES | [facility] | | | MELLITUS WITHOUT COMPLICA | | + + + + | 2023-07-06 10:06 | SCHIZOAFFECTIVE DISORDER, | [facility] | | | UNSPECIFIED | | + + + + | 2023-07-06 10:06 | Essential (primary) | [facility] | | | hypertension | | + + + + | 2023-07-06 10:06 | Unspecified chronic | [facility] | | | bronchitis | | + + + + | 2023-07-06 10:06 | GASTRO-ESOPHAGEAL REFLUX | [facility] | | | DISEASE WITHOUT ESOPHAGIT | | + + + + | 2023-07-06 10:06 | SHORTNESS OF BREATH | [facility] | + + + + | 2023-07-06 10:06 | OTHER INTERMEDIATE (CURRENT) | [facility] | | | DRUG THERAPY | | + + + + | 2023-07-06 10:06 | ALLERGY STATUS TO | [facility] | | | SULFONAMIDES STATUS | | + + + + | 2023-07-06 10:06 | ALLERGY STATUS TO NARCOTIC | [facility] | | | AGENT STATUS | | + + + + | 2023-07-06 10:06 | ALLERGY STATUS TO OTH | [facility] | | | DRUG/MEDS/BIOL SUBST STATUS | | | | | | + + + + | 2023-07-08 08:50 | OTHER SPECIFIED DIABETES | [facility] | | | MELLITUS WITHOUT COMPLICA | | + + + + | 2023-07-08 08:50 | SCHIZOAFFECTIVE DISORDER, | [facility] | | | UNSPECIFIED | | + + + + | 2023-07-08 08:50 | Essential (primary) | [facility] | | | hypertension | | + + + + | 2023-07-08 08:50 | UNSPECIFIED ASTHMA WITH | [facility] | | | (ACUTE) EXACERBATION | | + + + + | 2023-07-08 08:50 | GASTRO-ESOPHAGEAL REFLUX | [facility] | | | DISEASE WITHOUT ESOPHAGIT | | + + + + | 2023-07-08 08:50 | COUGH, UNSPECIFIED | [facility] | + + + + | 2023-07-08 08:50 | OTHER CHARGE MACHINE OPERATOR (CURRENT) | [facility] | | | DRUG THERAPY | | + + + + | 2023-07-08 08:50 | ALLERGY STATUS TO | [facility] | | | SULFONAMIDES STATUS | | + + + + | 2023-07-08 08:50 | ALLERGY STATUS TO NARCOTIC | [facility] | | | AGENT STATUS | | + + + + | 2023-07-08 08:50 | ALLERGY STATUS TO OTH | [facility] | | | DRUG/MEDS/BIOL SUBST STATUS | | | | | | + + + + Procedures No information. Results/Labs No information. Social History +--------+ + + | date | description | facility | +--------+ + + Vital Signs No information."
--- OUTSIDE RECORDS SUMMARY | ~2023-07-28 | XMS | Continuity of Care Document ---
Demographics + + + | Address | [address] | | | [place] [address] | + + + | Preferred Language | Unknown | + + + | Marital Status | | + + + | Taoist Affiliation | Unknown | + + + | Race | White | + + + | Ethnic Group | Unknown | + + + Author + + + | Author | [facility] | + + + | Organization | [facility] | + + + | Address | [address] | | | [place] [address] | + + + | Phone | | + + + Care Team Providers + + + + | Care Planner Chief Name | Role | Phone | [...] + + | 2023-06-30 09:03 | OTHER SENIOR LIVING (CURRENT) | [facility] | | | DRUG [...] + + | 2023-07-06 10:06 | OTHER SENIOR LIVING (CURRENT) | [facility] | | | DRUG [...] + + | 2023-07-08 08:50 | OTHER MACHINE FITTER (CURRENT) | [facility] | | | DRUG [...] + + + Procedures No information. Results/Labs +--------+--------+ +---------+--------+---------+ | test | date | facility | value | unit | notes | +--------+--------+ +---------+--------+---------+ + + | Result panel 1 | + + + + + +---------+ + + | BILIRUBIN, | 2023-07-28 | | 0.5 | ng/dl | (missing) | | TOTAL | 07:39 | [facility] | | | | + + + +---------+ + + | CREATININE, | 2023-07-28 | [facility] | 0.79 | mg/dl | (missing) | | SERUM | 07:39 | [facility] | | | | + + + +---------+ + + | BASOPHILS | 2023-07-28 | [facility] | 0.8 | % | (missing) | | | 07:39 | [facility] | | | | + + + +---------+ + + | | 2023-07-28 | [facility] | 1.00 | (missing) | (missing) | | ALBUMIN/GLOB | 07:39 | [facility] | | | | | ULIN RATIO | | | | | | + + + +---------+ + + | TROPONIN I | 2023-07-28 | [facility] | 11.8 | pg/ml | (missing) | | HIGH | 07:39 | [facility] | | | | | SENSITIVITY | | | | | | + + + +---------+ + + | UREA | 2023-07-28 | [facility] | 12 | mg/dl | (missing) | | NITROGEN | 07:39 | [facility] | | | | + + + +---------+ + + | ALKALINE | 2023-07-28 | [facility] | 127 | u/l | (missing) | | PHOSPHATASE | 07:39 | [facility] | | | | + + + +---------+ + + | HEMOGLOBIN | 2023-07-28 | [facility] | 13.3 | g/dl | (missing) | | | 07:39 | [facility] | | | | + + + +---------+ + + | SODIUM | 2023-07-28 | [facility] | 136 | mmol/l | (missing) | | | 07:39 | [facility] | | | | + + + +---------+ + + | ANION GAP | 2023-07-28 | [facility] | 14.1 | (missing) | (missing) | | | 07:39 | [facility] | | | | + + + +---------+ + + | | 2023-07-28 | [facility] | 15.18 | (missing) | (missing) | | BUN/CREATINI | 07:39 | [facility] | | | | | NE RATIO | | | | | | + + + +---------+ + + | RDW | 2023-07-28 | [facility] | 15.3 | (missing) | (missing) | | | 07:39 | [facility] | | | | + + + +---------+ + + | PLATELET | 2023-07-28 | [facility] | 169 | k/ul | (missing) | | COUNT | 07:39 | [facility] | | | | + + + +---------+ + + | AST (SGOT) | 2023-07-28 | [facility] | 18 | u/l | (missing) | | | 07:39 | [facility] | | | | + + + +---------+ + + | CARBON | 2023-07-28 | [facility] | 27 | mmol/l | (missing) | | DIOXIDE | 07:39 | [facility] | | | | + + + +---------+ + + | MCH | 2023-07-28 | [facility] | 27.2 | (missing) | (missing) | | | 07:39 | [facility] | | | | + + + +---------+ + + | ALT (SGPT) | 2023-07-28 | [facility] | 28 | u/l | (missing) | | | 07:39 | [facility] | | | | + + + +---------+ + + | GLOBULIN | 2023-07-28 | [facility] | 3.2 | g/dl | (missing) | | | 07:39 | [facility] | | | | + + + +---------+ + + | ALBUMIN | 2023-07-28 | [facility] | 3.2 | g/dl | (missing) | | | 07:39 | [facility] | | | | + + + +---------+ + + | EOSINOPHILS | 2023-07-28 | [facility] | 3.3 | % | (missing) | | | 07:39 | [facility] | | | | + + + +---------+ + + | MCHC | 2023-07-28 | [facility] | 32.2 | g/dl | (missing) | | | 07:39 | [facility] | | | | + + + +---------+ + + | LYMPHOCYTES | 2023-07-28 | [facility] | 36.7 | % | (missing) | | | 07:39 | [facility] | | | | + + + +---------+ + + | POTASSIUM | 2023-07-28 | [facility] | 4.1 | mmol/l | (missing) | | | 07:39 | [facility] | | | | + + + +---------+ + + | RBC | 2023-07-28 | [facility] | 4.89 | m/ul | (missing) | | | 07:39 | [facility] | | | | + + + +---------+ + + | HEMATOCRIT | 2023-07-28 | [facility] | 41.3 | % | (missing) | | | 07:39 | [facility] | | | | + + + +---------+ + + | GLUCOSE | 2023-07-28 | [facility] | 442 | mg/dl | (missing) | | | 07:39 | [facility] | | | | + + + +---------+ + + | MONOCYTES | 2023-07-28 | [facility] | 5.9 | % | (missing) | | | 07:39 | [facility] | | | | + + + +---------+ + + | WBC | 2023-07-28 | [facility] | 5.9 | k/ul | (missing) | | | 07:39 | [facility] | | | | + + + +---------+ + + | NEUTROPHILS | 2023-07-28 | [facility] | 53.3 | % | (missing) | | | 07:39 | [facility] | | | | + + + +---------+ + + | PROTEIN, | 2023-07-28 | [facility] | 6.4 | g/dl | (missing) | | TOTAL | 07:39 | [facility] | | | | + + + +---------+ + + | GLOMERULAR | 2023-07-28 | [facility] | 82 | ml/min | (missing) | | FILTRATION | 07:39 | [facility] | | | | | RATE,EST | | | | | | + + + +---------+ + + | MCV | 2023-07-28 | [facility] | 84.4 | fl | (missing) | | | 07:39 | [facility] | | | | + + + +---------+ + + | CALCIUM | 2023-07-28 | [facility] | 9.1 | mg/dl | (missing) | | | 07:39 | [facility] | | | | + + + +---------+ + + | CHLORIDE | 2023-07-28 | [facility] | 99 | mmol/l | (missing) | | | 07:39 | [facility] | | | | + + + +---------+ + + + + | Result panel 2 | + + + + + + + + + | 2019 NOVEL | 2023-07-28 | [facility] | NEGATIVE | (missing) | (missing) | | COVID RAPID | 08:00 | [facility] | | | | | BY PCR | | | | | | + + + + + + + | INFLUENZA A | 2023-07-28 | [facility] | NEGATIVE | (missing) | (missing) | | LUPE | 08:00 | [facility] | | | | + + + + + + + | INFLUENZA B | 2023-07-28 | [facility] | NEGATIVE | (missing) | (missing) | | LUPE | 08:00 | [facility] | | | | + + + + + + + | RESPIRATORY | 2023-07-28 | [facility] | NEGATIVE | (missing) | (missing) | | SYNCYTIAL | 08:00 | [facility] | | | | | VIR LUPE | | | | | | + + + + + + + + + | Result panel 3 | + + + + + +-------+ + + | GLUCOSE, | 2023-07-28 | [facility] | 392 | (missing) | (missing) | | POC | 09:04 | [facility] | | | | + + + +-------+ + + Social History +--------+ + + | date | description | facility | +--------+ + + Vital Signs No information."
--- OUTSIDE RECORDS SUMMARY | 2023-07-28 07:32 | XMS ---
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 - Patient with suicidal and/or homicidal ideations eloped. - Patient eloped with IV in place. Details: PATIENT LWBS CRITERIA MET - 6 ED Visits in 6 Months - [facility] - 2 Visits in 30 Days CARE PROVIDERS ANGELICA MELVIN Internal Medicine: Pulmonary Disease 05/21/2020-Current PHONE: Unknown SMITH CAMACHO Counselor: Mental Health 05/21/2020-Current PHONE: [phone] WAYNE CAMARGO Internal Medicine 09/07/2019-Current PHONE: Unknown [facility] 01/31/2019-Current PHONE: [phone] Kenny Palafox DO [facility] Current PHONE: Unknown Care Guidelines exist for the following facilities: [facility] ( 07/06/2021 ) Care History Medical/Surgical 12/21/2021 [facility] - Patient is currently established with [facility]. If patient is seen in the ED during business hours. Please contact CHWs at [facility]. Care Recommendation: If this patient has had 5 or more Emergency Department visits in the last 12 months.\T\nbsp;Patient will require education on the scope and purpose of the ED as an acute care provider not a Primary Care Provider and should not be utilized for chronic conditions.\T\nbsp; These are guidelines and the provider should exercise clinical judgment when providing care. 06/02/2020 [facility] - LETTER FROM PATIENT PCP- DR [...] TO DR DOMINGUEZ IF NEEDED. DR DOMINGUEZ [phone] 05/26/2020 [facility] Patient stated that she was having chest discomfort and called [facility] and they told her to go to ED. Patient has a televisit with Dr. Dominguez on 05/27/2020 at 8:40 am. E.D. VISIT COUNT (12 MO.) 13 [facility]. TOTAL 13 NOTE: Visits indicate total known visits. ED/UCC VISIT TRACKING (12 MO.) 07/28/2023 07:30 [facility] [place] TYPE: Emergency COMPLAINT: - CHEST PAIN 07/08/2023 08:50 [facility] [place] TYPE: Emergency COMPLAINT: - DIFFICULTY BREATHING, COUGH DIAGNOSES: - Allergy status to narcotic agent - Allergy status to other drugs, medicaments and biological substances - Allergy status to sulfonamides - Cough, unspecified - Essential (primary) hypertension - Gastro-esophageal reflux disease without esophagitis - Other long-term (current) 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 - Other specified diabetes mellitus without complications - Schizoaffective disorder, unspecified - Unspecified asthma with (acute) exacerbation 07/06/2023 10:06 [facility] [place] TYPE: Emergency COMPLAINT: - DIFFICULTY BREATHING DIAGNOSES: - Allergy status to narcotic agent - Allergy status to other drugs, medicaments and biological substances - Allergy status to sulfonamides - Essential (primary) hypertension - Gastro-esophageal reflux disease without esophagitis - Other extermination inspector (current) drug therapy - Other specified diabetes [...] Gastro-esophageal reflux disease without esophagitis - Other extermination inspector (current) drug therapy - Unspecified asthma, uncomplicated [...] Gastro-esophageal reflux disease without esophagitis - Other long-term (current) 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 - Other specified diabetes mellitus without complications - Shortness of breath 01/21/2023 02:07 [facility] [place] TYPE: Emergency COMPLAINT: - WEAKNESS DIAGNOSES: - Allergy status to other drugs, medicaments and biological substances - Allergy status to sulfonamides - Diarrhea, unspecified - Essential (primary) hypertension - Gastro-esophageal reflux disease without esophagitis - Other extermination inspector (current) drug therapy - Type 2 diabetes mellitus without complications 01/20/2023 10:18 [facility] [place] TYPE: Emergency COMPLAINT: - WEAKNESS DIAGNOSES: - Allergy status to other drugs, medicaments and biological substances - Allergy status to sulfonamides - COVID-19 - Dehydration - Diarrhea, unspecified - Essential (primary) hypertension - Gastro-esophageal reflux disease without esophagitis - Other extermination inspector (current) drug therapy - Syncope and collapse - Type 2 diabetes mellitus without complications 12/25/2022 18:03 [facility] [place] TYPE: Emergency COMPLAINT: - FEVER,COUGH AND SOB DIAGNOSES: - Allergy status to other drugs, medicaments and biological substances - Allergy status to sulfonamides - Contact with and (suspected) exposure to COVID-19 - Essential (primary) hypertension - Gastro-esophageal reflux disease without esophagitis - Other long-term (current) 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 - Shortness of breath [...] Gastro-esophageal reflux disease without esophagitis - Other extermination inspector (current) drug therapy - Suicidal ideations - Type 2 diabetes mellitus without complications 11/27/2022 20:20 [facility] [place] TYPE: Emergency COMPLAINT: - CHEST PAIN DIAGNOSES: - Allergy status to other drugs, medicaments and biological substances - Allergy status to sulfonamides - Essential (primary) hypertension - Gastro-esophageal reflux disease without esophagitis - Old myocardial infarction - Other chest pain - Other extermination inspector (current) drug therapy - Type 2 diabetes mellitus without complications 11/22/2022 09:12 [facility] [place] TYPE: Emergency COMPLAINT: - CHEST PAIN DIAGNOSES: - Allergy status to other drugs, medicaments and biological substances - Allergy status to sulfonamides - Essential (primary) hypertension - Gastro-esophageal reflux disease without esophagitis - Other extermination inspector (current) drug therapy - Precordial pain - [...] disease without esophagitis - Hyperglycemia, unspecified - [facility] (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 of 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 - Other long-term (current) 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 - Personal history of transient ischemic attack (TIA), and cerebral infarction without residual deficits - Poisoning by other antipsychotics and neuroleptics, intentional self-harm, initial encounter - Reaction to severe stress, unspecified - Schizoaffective disorder, unspecified INPATIENT VISIT TRACKING (12 MO.) 12/04/2022 15:52 [facility] [place] TYPE: Psychiatric Services DIAGNOSES: 0. Schizoaffective disorder, bipolar type 0. Schizoaffective disorder, depressive type 1. Schizoaffective disorder, bipolar type 2. Cardiomegaly 2. Essential (primary) hypertension 2. Gastro-esophageal reflux disease without esophagitis 2. [facility] (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 of 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 2. Other specific personality disorders 2. Patient's other noncompliance with medication regimen 2. Personal history of suicidal behavior 2. Presence of aortocoronary bypass graft 2. Suicidal ideations 2. Type 2 diabetes mellitus without complications 2. Underdosing of other antipsychotics and neuroleptics, initial encounter [email or web address]
[2023-07-28] MEDS ORDERED: METOPROLOL SUCC50 MG PO (07:44)
[2023-07-28 07:48] LABS: BASOPHILS 0.8 % (0-2); EOSINOPHILS 3.3 % (0-6); HEMATOCRIT 41.3 % (35.0-50.0); HEMOGLOBIN 13.3 g/dL (12.0-18.0); LYMPHOCYTES 36.7 % (24-44); MCH 27.2 (27-36); MCHC 32.2 g/dl (30-36); MCV 84.4 fl (81-99); MONOCYTES 5.9 % (0-12); NEUTROPHILS 53.3 % (39-80); PLATELET COUNT 169 K/uL (140-440); RBC 4.89 M/ul (4.3-5.7); RDW 15.3 (10.5-15.0)
[2023-07-28 08:03] LABS: ALBUMIN 3.2 g/dL (3.4-5.0); ANION GAP 14.1 (7-21); BILIRUBIN, TOTAL 0.5 ng/dL (0.2-1.0); BUN/CREATININE RATIO 15.18 (6.0-28.6); CALCIUM 9.1 mg/dL (8.5-10.1); CREATININE, SERUM 0.79 mg/dL (0.55-1.02); POTASSIUM 4.1 mmol/L (3.5-5.1); PROTEIN, TOTAL 6.4 g/dL (6.4-8.2)
[2023-07-28 08:47] LABS: INFLUENZA B NAA NEGATIVE (NEGATIVE); RESPIRATORY SYNCYTIAL VIR NAA NEGATIVE (NEGATIVE)
[2023-07-28] MEDS ORDERED: MUPIROCIN22 GM TOP (13:56)
[2023-07-28] MEDS ORDERED: ALBUTEROL2.5 MG/3 M INH (14:00)
--- NOTE | 2023-07-28 14:18 | NUR ---
PATIENT ARRIVED VIA STRETCHER BY THIS RN AND TIA. REPORT RECIEVED FROM CHARLIE IZAGUIRRE IN ED AT 1325. PATIENT MOVED TO BED WITH STAFF ASSIST. PATIENT REPORTS DIZZINESS WITH ACTIVITY/MOVEMENT. PATIENT CALLED HER FAMILY UPON ADMIT TO CCU. ALL BELONGIGNS PLACED IN GREEN BAG AND PLACED IN CLOSET. PATIENT HAS HER CELL PHONE AND INTERNAL AUDIT CONSULTANT AT THE BEDSIDE. CALL LIGHT PROVIDED. BED IN LOWEST POSITION.
[2023-07-28] MEDS ORDERED: ARIPIPRAZOLE20 MG PO (15:04)
[2023-07-28] MEDS ORDERED: FLOVENT HFA12 GM INH (15:05)
[2023-07-28] MEDS ORDERED: LISINOPRIL10 MG PO (15:07)
[2023-07-28] MEDS ORDERED: VENTOLIN HFA18 GM INH (15:07)
[2023-07-28] MEDS ORDERED: FLUTICASONE PRO16 GM NAS (15:13)
--- NOTE | 2023-07-28 15:30 | NUR ---
PATIENT UP TO BSC FOR LARGE VOID. PATIENT DIZZY WITH MOVEMENT BUT TOLERATED ACTIVITY WELL. PATIENT SITTING AT SIDE OF BED EATING LUNCH AT THIS TIME. CALL LIGHT IN EASY REACH.
[2023-07-28] MEDS ORDERED: NITROGLYCERIN0.4 MG SL (15:56)
--- NOTE | 2023-07-28 15:57 | NUR ---
MED REC COMPLETE
--- NOTE | 2023-07-28 16:00 | NUR ---
PATIENT FAMILY IN TO VISIT. PATIENT PROVIDED WITH DENTURE PASTE. PATIENT RESTING IN BED. PATIENT REPORTS INTERMIT. DIZZINESS.
--- NOTE | 2023-07-28 17:21 | NUR ---
PATIENT SITTING UP IN BED, VITALS CHARTED. GLUCOSE OF 288 CHARTED AND RN NOTIFIED. PATIENT IS DIZZY AND HAS NAUSEA. COOL WASH CLOTH PROVIDED FOR FOREHEAD, RN NOTIFIED. CALL LIGHT IN EASY REACH
--- NOTE | 2023-07-28 17:30 | NUR ---
MD NOTIFIED OF PATIENT FEELING MORE SYMPTOMATIC THIS EVENING. PATIENT COMPLAINTS OF NAUSEA, DIAPHORESIS, AND DIZZINESS. NEW EKG ORDERED. MD IN AT THE BEDSIDE TO REVIEW MONITORS AND RHYTHM.
--- NOTE | 2023-07-28 18:12 | NUR ---
HERE AT THE [facility]. TALKING WITH [facility] TO ARRANGE TRANSPORT TO [facility] OF CARE FOR PATIENT.
--- NOTE | 2023-07-28 20:00 | NUR ---
PT IS ALERT AND ORIENTATED. PT IS ON ROOM AIR WITH CLEAR LUNG SOUNDS. HEART RATE IS CONVERTING FROM SINUS RYTHM TO 2ND DEGREE TYPE 2 HEART BLOCK TO 3RD DEGREE HEART BLOCK. PT IS HYPERTENSIVE AND BP FLUCUATES WITH RHYTHM CHANGES. PT COMPLAINS OF INCREASED DIZZINES AND NAUSEA DURING RHYTHM CHANGES. PT ATTEMPTED TO EAT A FEW BITES OF DINNER BUT WAS UNABLE TO. 2ND IV PLACED. ALL QUESTIONS AND CONCERNS ADDRESSED AT THIS TIME. PT HAS CALL LIGHT AT HER BEDSIDE.
--- NOTE | 2023-07-28 21:45 | NUR ---
PT HAVING INCREASED CHEST PRESSURE, 1MG MORPHINE GIVEN AND PLACED ON 2L NASAL CANNULA. EKG OBTAINED, SLIGHT ST ELEVATION, PROVIDER AWARE AND AT BEDSIDE. PT PREPARED TO TRANSFER AT THIS TIME, REPORT GIVEN TO LIFE FLIGHT TEAM. PT LEFT AT 2144. REPORT GIVEN TO RN ASSUMING CARE AT [facility].
--- NOTE | 2023-07-28 22:40 | NUR ---
PROVIDER NOTIFIED OF PT CHANGES AND CONDITION. PROVIDER ON THE UNIT.
--- NOTE | 2023-07-29 12:15 | EKG ---
[facility] [address] [place] [address] Signed Sinus bradycardia with fusion complexes Nonspecific intraventricular block Minimal voltage criteria for LVH, may be normal variant ( [place] product ) Cannot rule out Anteroseptal infarct (cited on or before 20-JAN-2023) Abnormal ECG When compared with ECG of 06-JUL-2023 10:29, Significant changes have occurred Confirmed by BARRY ACEVES MD ([id number]) on 07/29/2023 12:15:11 PM Electronically Signed By: BARRY ACEVES 07/29/23 1215 PATIENT NAME: BERNARDA ALARCON Electrocardiogram DATE OF : 55 PHYSICIAN: BARRY ACEVES REPORT #: [id number] REPORT IS CONFIDENTIAL AND NOT TO BE RELEASED WITHOUT AUTHORIZATION
--- NOTE | 2023-07-29 12:17 | EKG ---
[facility] [address] [place] [address] Signed Sinus bradycardia with premature atrial complexes Left bundle branch block Abnormal ECG When compared with ECG of 28-JUL-2023 07:29, (Unconfirmed) fusion complexes are no longer present premature atrial complexes are now present Confirmed by BARRY ACEVES MD ([id number]) on 07/29/2023 12:17:37 PM Electronically Signed By: BARRY ACEVES 07/29/23 1217 PATIENT NAME: BERNARDA ALARCON AIDE Electrocardiogram DATE OF : 55 PHYSICIAN: BARRY ACEVES REPORT #: [id number] REPORT IS CONFIDENTIAL AND NOT TO BE RELEASED WITHOUT AUTHORIZATION
--- NOTE | 2023-07-29 12:18 | EKG ---
[facility] [address] [facility] [place] [address] Signed Normal sinus rhythm Left axis deviation Left bundle branch block Abnormal ECG When compared with ECG of 28-JUL-2023 17:26, (Unconfirmed) Significant changes have occurred Confirmed by BARRY ACEVES MD ([id number]) on 07/29/2023 12:18:20 PM Electronically Signed By: BARRY ACEVES 07/29/23 1218 PATIENT NAME: JENNIJONN BRADLEYMALLORIE NOBLE Electrocardiogram DATE OF : 55 PHYSICIAN: BARRY ACEVES REPORT #: [id number] REPORT IS CONFIDENTIAL AND NOT TO BE RELEASED WITHOUT AUTHORIZATION
== END 2023-07-29 01:38 | disposition short-term general hospital (02) ==
LOC: ED 07:30 → CCU 07:31
PROVIDERS: Internal Medicine; ADMIT Family Medicine; ATTEND Family Medicine
DX: I44.1 Atrioventricular block, second degree (principal); I48.91 Unspecified atrial fibrillation; R73.9 Hyperglycemia, unspecified; R07.9 Chest pain, unspecified; Z88.2 Allergy status to sulfonamides; Z88.8 Allergy status to other drugs, medicaments and biological substances; Z79.899 Other long term (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; Z20.822 Contact with and (suspected) exposure to COVID-19
CPT/HCPCS: 36415; 71045; 80053; 83036; 83735; 83880; 84100; 84484; 85025; 87502; 93005; 93010; 96374; 96375; 99285-25; C9803; G0378; J1815; J2270; J2405; U0002

== ENCOUNTER 2023-09-10 14:31 | Emergency (ER) | payer MEDICARE ==
[~2023-09-10] VITALS: Ht 170.2 cm; Wt 107.3 kg
--- OUTSIDE RECORDS SUMMARY | ~2023-09-10 | XMS | Continuity of Care Document ---
Demographics + + + | Address | [address] | | | [place] [address] | + + + | Preferred Language | Unknown | + + + | Marital Status | Unknown | + + + | Mu-Ism Affiliation | Unknown | + + + | Race | White | + + + | Ethnic Group | Unknown | + + + Author + + + | Author | [facility] | + + + | Organization | [facility] | + + + | Address | [address] | | | [place] [address] | + + + | Phone | | + + + Care Team Providers + + + + | Care Executive Manager Name | Role | Phone | + + + + Unavailable | Unavailable | + + + + Unavailable | Unavailable | + + + + Allergies No information. Encounters No information. Functional Status No information. Immunizations No information. Medications No information. Problems + + + + | date | description | facility | + + + + | 2023-07-29 01:17:13 | Bradycardia, unspecified | [facility] | + + + + | 2023-07-31 13:56:59 | Chronic pain syndrome | [facility] | + + + + | 2023-07-31 13:56:59 | Other atrioventricular | [facility] | | | block | | + + + + | 2023-07-31 13:56:59 | Paroxysmal atrial | [facility] | | | fibrillation | | + + + + | 2023-07-31 13:56:59 | Bradycardia, unspecified | [facility] | + + + + | 2023-07-31 13:56:59 | Presence of cardiac | [facility] | | | pacemaker | | + + + + Procedures No information. Results/Labs No information. Social History +--------+ + + | date | description | facility | +--------+ + + Vital Signs No information."
[~2023-09-10 14:31] MED LIST changes: +ALBUTEROL2.5 MG/3 M INH; +ARIPIPRAZOLE20 MG PO; +FLOVENT HFA12 GM INH; +FLUTICASONE PRO16 GM NAS; +METOPROLOL SUCC50 MG PO; +MUPIROCIN22 GM TOP
--- OUTSIDE RECORDS SUMMARY | 2023-09-10 14:32 | XMS ---
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 - Patient with suicidal and/or homicidal ideations eloped. - Patient eloped with IV in place. Details: PATIENT LWBS CRITERIA MET - [facility] ANGELICA MELVIN Internal Medicine: Pulmonary Disease 05/21/2020-Current PHONE: Unknown SMITH CAMACHO Counselor: Mental Health 05/21/2020-Current PHONE: [phone] WAYNE CAMARGO Internal Medicine 09/07/2019-Current PHONE: Unknown Jose Ag [facility] 01/31/2019-Current PHONE: [phone] Kenny Palafox DO [facility] Current PHONE: Unknown Care Guidelines exist for the following facilities: [facility] [place] ( 07/06/2021 ) Care History Medical/Surgical 12/21/2021 [facility] - Patient is currently established with [facility]. If patient is seen in the ED during business hours. Please contact CHWs at [facility]. Care Recommendation: If this patient has had 5 or more Emergency Department visits in the last 12 months.\T\nbsp;Patient will require education on the scope and purpose of the ED as an acute care provider not a Primary Care Provider and should not be utilized for chronic conditions.\T\nbsp; These are guidelines and the provider should exercise clinical judgment when providing care. 06/02/2020 [facility] - LETTER FROM PATIENT PCP- DR [...] TO DR DOMINGUEZ IF NEEDED. DR DOMINGUEZ [phone] 05/26/2020 [facility] Patient stated that she was having chest discomfort and called [facility] and they told her to go to ED. Patient has a televisit with Dr. Dominguez on 05/27/2020 at 8:40 am. E.D. VISIT COUNT (12 MO.) 14 [facility] TOTAL 14 NOTE: Visits indicate total known visits. ED/UCC VISIT TRACKING (12 MO.) 09/10/2023 14:32 [facility] [place] TYPE[place] Emergency COMPLAINT: - WOUND CHECK 07/28/2023 07:30 [facility] [place] TYPE: Emergency COMPLAINT: - CHEST PAIN 07/08/2023 08:50 [facility] [place] [place] TYPE: Emergency COMPLAINT: - DIFFICULTY BREATHING, COUGH DIAGNOSES: - Allergy status to narcotic agent - Allergy status to other drugs, medicaments and biological substances - Allergy status to sulfonamides - Cough, unspecified - Essential (primary) hypertension - Gastro-esophageal reflux disease without esophagitis - Other correction (current) drug therapy - Other specified diabetes mellitus without complications - Schizoaffective disorder, unspecified - Unspecified asthma with (acute) exacerbation 07/06/2023 10:06 [facility] [place] TYPE: Emergency COMPLAINT: - DIFFICULTY BREATHING DIAGNOSES: - Allergy status to narcotic agent - Allergy status to other drugs, medicaments and biological substances - Allergy status to sulfonamides - Essential (primary) hypertension - Gastro-esophageal reflux disease without esophagitis - Other correction (current) drug therapy - Other specified diabetes mellitus without complications - Schizoaffective disorder, unspecified - Shortness of breath - Unspecified chronic bronchitis 06/30/2023 09:03 [facility] [place] [facility] [place] TYPE: Emergency COMPLAINT: - DIFFICULTY BREATHING DIAGNOSES: - Allergy status to other drugs, medicaments and biological substances - Allergy status to sulfonamides - Contact with and (suspected) exposure to COVID-19 - Dyspnea, unspecified - Essential (primary) hypertension - Gastro-esophageal reflux disease without esophagitis - 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 [place] TYPE: Emergency COMPLAINT: - WEAKNESS DIAGNOSES: - Allergy status to other drugs, medicaments and biological substances - Allergy status to sulfonamides - COVID-19 - Dehydration - Diarrhea, unspecified - Essential (primary) hypertension - Gastro-esophageal reflux disease without esophagitis - Other correction (current) drug therapy - Syncope and collapse - Type 2 diabetes mellitus without complications 12/25/2022 18:03 [facility] [place] TYPE: Emergency COMPLAINT: - FEVER,COUGH AND SOB DIAGNOSES: - Allergy status to other drugs, medicaments and biological substances - Allergy status to sulfonamides - Contact with and (suspected) exposure to COVID-19 - Essential (primary) hypertension - Gastro-esophageal reflux disease without esophagitis - Other correction (current) drug therapy - Shortness of breath [...] Gastro-esophageal reflux disease without esophagitis - 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 - Suicidal ideations - Type 2 diabetes mellitus without complications 11/27/2022 20:20 [facility] [place] [place] TYPE[place] Emergency COMPLAINT: - CHEST PAIN DIAGNOSES: - Allergy status to other drugs, medicaments and biological substances - Allergy status to sulfonamides - Essential (primary) hypertension - Gastro-esophageal reflux disease without esophagitis - Old myocardial infarction - Other chest pain - Other correction (current) drug therapy - Type 2 diabetes mellitus without complications 11/22/2022 09:12 [facility] [place] TYPE: Emergency COMPLAINT: - CHEST PAIN DIAGNOSES: - Allergy status to other drugs, medicaments and biological substances - Allergy status to sulfonamides - Essential (primary) hypertension - Gastro-esophageal reflux disease without esophagitis - 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 - Precordial pain - [...] disease without esophagitis - Hyperglycemia, unspecified - long-term (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 of 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 - Other correction (current) drug therapy - Personal history of transient ischemic attack (TIA), and cerebral infarction without residual deficits - Poisoning by other antipsychotics and neuroleptics, intentional self-harm, initial encounter - Reaction to severe stress, unspecified - Schizoaffective disorder, unspecified INPATIENT VISIT TRACKING (12 MO.) 07/29/2023 13:45 [facility] TYPE: Inpatient COMPLAINT: - Insert PPM dual chamber DIAGNOSES: - Bradycardia, unspecified - Paroxysmal atrial fibrillation 07/29/2023 01:17 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 [place] TYPE: Observation COMPLAINT: - SECOND DEGREE HEART BLOCK DIAGNOSES: - Allergy status to other drugs, medicaments and biological substances - Allergy status to sulfonamides - Atrioventricular block, second degree - Chest pain, unspecified - Contact with and (suspected) exposure to COVID-19 - Hyperglycemia, unspecified - Other correction (current) drug therapy - Unspecified atrial fibrillation 12/04/2022 15:52 [facility] [place] TYPE: Psychiatric Services DIAGNOSES: 0. Schizoaffective disorder, bipolar type 0. Schizoaffective disorder, depressive type 1. Schizoaffective disorder, bipolar type 2. Cardiomegaly 2. Essential (primary) hypertension 2. 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 Other specific personality disorders 2. Patient's other noncompliance with medication regimen 2. Personal history of suicidal behavior 2. Presence of aortocoronary bypass graft 2. Suicidal ideations 2. Type 2 diabetes mellitus without complications 2. Underdosing of other antipsychotics and neuroleptics, initial encounter [email or web address]
[2023-09-10 16:23] LABS: BASOPHILS 1.3 % (0-2); EOSINOPHILS 2.2 % (0-6); HEMATOCRIT 40.4 % (35.0-50.0); HEMOGLOBIN 13.7 g/dL (12.0-18.0); MCH 27.9 (27-36); MCHC 33.9 g/dl (30-36); MCV 82.2 fl (81-99); MONOCYTES 5.4 % (0-12); NEUTROPHILS 56.1 % (39-80); PLATELET COUNT 195 K/uL (140-440); RBC 4.91 M/ul (4.3-5.7); RDW 15.5 (10.5-15.0)
[2023-09-10 16:40] LABS: ALBUMIN 3.4 g/dL (3.4-5.0); ALBUMIN/GLOBULIN RATIO 1.13 (1.1-2.4); ANION GAP 11.2 (7-21); BILIRUBIN, TOTAL 0.4 ng/dL (0.2-1.0); BUN/CREATININE RATIO 20.51 (6.0-28.6); CALCIUM 9.2 mg/dL (8.5-10.1); CREATININE, SERUM 0.78 mg/dL (0.55-1.02); POTASSIUM 4.2 mmol/L (3.5-5.1); PROTEIN, TOTAL 6.4 g/dL (6.4-8.2)
[2023-09-10 17:32] VITALS: BP 119/78
== END 2023-09-10 17:34 | disposition home or self-care (01) ==
LOC: ED 14:31
PROVIDERS: Emergency Medicine
DX: Z48.01 Encounter for change or removal of surgical wound dressing (principal); J34.89 Other specified disorders of nose and nasal sinuses; E11.9 Type 2 diabetes mellitus without complications; I10 Essential (primary) hypertension; I69.351 Hemiplegia and hemiparesis following cerebral infarction affecting right dominant side; Z95.0 Presence of cardiac pacemaker; Z88.2 Allergy status to sulfonamides; Z88.8 Allergy status to other drugs, medicaments and biological substances; Z79.899 Other long term (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
CPT/HCPCS: 36415; 80053; 85025; 99283

== ENCOUNTER 2024-03-03 10:53 | Emergency (ER) | payer MEDICARE ==
[~2024-03-03] VITALS: Ht 170.2 cm; Wt 100.0 kg
[~2024-03-03 10:53] MED LIST changes: +ARIPIPRAZOLE5 MG PO; +DESVENLAFAXINE50 M3 PO; +IPRAT-ALBUT 0.5-3 ML INH; +TOPIRAMATE50 MG PO
[2024-03-03 11:17] LABS: BASOPHILS 2.5 % (0-2); EOSINOPHILS 1.1 % (0-6); HEMATOCRIT 44.8 % (35.0-50.0); HEMOGLOBIN 14.7 g/dL (12.0-18.0); LYMPHOCYTES 15.3 % (24-44); MCH 27.5 (27-36); MCHC 32.9 g/dl (30-36); MCV 83.5 fl (81-99); MONOCYTES 2.7 % (0-12); NEUTROPHILS 78.4 % (39-80); PLATELET COUNT 228 K/uL (140-440); RBC 5.36 M/ul (4.3-5.7); RDW 15.8 (10.5-15.0)
[2024-03-03 11:31] LABS: ACETAMINOPHEN 0 ug/mL (10-30); SALICYLATE 1.6 mg/dL (2.8-20.0)
[2024-03-03 11:37] LABS: BILIRUBIN, URINE NEGATIVE (negative); BLOOD/HGB, URINE NEGATIVE (Negative); KETONE, URINE NEGATIVE (Negative); LEUK ESTERASE, URINE NEGATIVE (negative); NITRITE, URINE NEGATIVE (negative); PH, URINE 5.5 (5-7)
[2024-03-03 11:41] LABS: ALBUMIN 3.8 g/dL (3.4-5.0); ALBUMIN/GLOBULIN RATIO 1.15 (1.1-2.4); ALCOHOL, MEDICAL <3 ng/dL (<3); ALKALINE PHOSPHATASE 146 U/L (46-116); ALT (SGPT) 36 U/L (14-59); ANION GAP 17.5 (7-21); AST (SGOT) 26 U/L (15-37); BILIRUBIN, TOTAL 0.6 ng/dL (0.2-1.0); BUN/CREATININE RATIO 6.52 (6.0-28.6); CALCIUM 9.5 mg/dL (8.5-10.1); CARBON DIOXIDE 25 mmol/L (21-32); CHLORIDE 98 mmol/L (98-107); CREATININE, SERUM 0.92 mg/dL (0.55-1.02); GLOMERULAR FILTRATION RATE,EST 68 mL/min (>60); POTASSIUM 4.5 mmol/L (3.5-5.1); PROTEIN, TOTAL 7.1 g/dL (6.4-8.2); TSH, 3RD GENERATION 2.751 uIU/mL (0.358-3.740); UREA NITROGEN 6 mg/dL (7-18)
[2024-03-03 11:54] LABS: AMPHETAMINES, URINE NEGATIVE (NEGATIVE); BARBITURATES, URINE NEGATIVE (NEGATIVE); BENZODIAZEPINE, URINE NEGATIVE (NEGATIVE); BUPRENORPHINE, URINE NEGATIVE (NEGATIVE); CANNABINOID, URINE NEGATIVE (NEGATIVE); COCAINE, URINE NEGATIVE (NEGATIVE); ECSTASY, URINE NEGATIVE (NEGATIVE); FENTANYL, URINE NEGATIVE (NEGATIVE); METHADONE, URINE NEGATIVE (NEGATIVE); OPIATES, URINE NEGATIVE (NEGATIVE); OXYCODONE, URINE NEGATIVE (NEGATIVE); PHENCYCLIDINE, URINE NEGATIVE (NEGATIVE)
[2024-03-03] MEDS ORDERED: ACETAMINOPHEN 500 MG TAB PO ONE (13:45)
[2024-03-03] MEDS ORDERED: ARIPiprazole 10 MG TAB PO SCH (19:44)
[2024-03-03] MEDS ORDERED: ARIPiprazole 5 MG TAB PO PRN (19:45)
[2024-03-03] MEDS ORDERED: PANTOPRAZOLE SODIUM 40 MG TABEC PO SCH (19:46)
[2024-03-03] MEDS ORDERED: METOPROLOL TARTRATE 50 MG TAB PO SCH (19:46)
[2024-03-03] MEDS ORDERED: PARoxetine HCL 20 MG TAB PO SCH (19:47)
[2024-03-04] MEDS ORDERED: ACETAMINOPHEN 500 MG TAB PO PRN (01:15)
[2024-03-04] MEDS ORDERED: [UNRECOGNIZED DRUG - REMARK] XX PRN (07:30)
[2024-03-04] MEDS ORDERED: metFORMIN HCL 500 MG TAB PO SCH (08:00)
[2024-03-05 15:17] VITALS: BP 136/61
== END 2024-03-05 15:20 ==
LOC: ED 10:53
PROVIDERS: Emergency Medicine
DX: F29 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ogical condition (principal); F32.A Depression, unspecified; I10 Essential (primary) hypertension; K21.9 Gastro-esophageal reflux disease without esophagitis; E11.9 Type 2 diabetes mellitus without complications; Z88.2 Allergy status to sulfonamides; Z88.8 Allergy status to other drugs, medicaments and biological substances; Z79.899 Other long term (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
CPT/HCPCS: 36415; 80053; 80307; 81003; 84443; 85025; 99285; A9270; G0480; U0002

== ENCOUNTER 2024-06-17 09:44 | Emergency (ER) | payer MEDICARE ==
[~2024-06-17] VITALS: Ht 170.2 cm; Wt 104.4 kg
[2024-06-17] MEDS ORDERED: LAMOTRIGINE25 MG PO (09:59)
[2024-06-17] MEDS ORDERED: PAROXETINE HCL40 MG PO (09:59)
[2024-06-17] MEDS ORDERED: IBUPROFEN 600 MG TAB PO ONE (10:15)
[2024-06-17 10:54] VITALS: BP 158/81
== END 2024-06-17 10:54 | disposition home or self-care (01) ==
LOC: ED 09:44
DX: M25.571 Pain in right ankle and joints of right foot (principal); M25.561 Pain in right knee; I83.91 Asymptomatic varicose veins of right lower extremity; I10 Essential (primary) hypertension; E11.9 Type 2 diabetes mellitus without complications; Z95.0 Presence of cardiac pacemaker; Z88.2 Allergy status to sulfonamides; Z88.8 Allergy status to other drugs, medicaments and biological substances; Z79.899 Other long term (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
CPT/HCPCS: 93971; 99283-25; A9270

== ENCOUNTER 2024-06-23 10:19 | Emergency (ER) | payer MEDICARE ==
[~2024-06-23] VITALS: Ht 170.2 cm; Wt 104.2 kg
[~2024-06-23 10:19] MED LIST changes: +LAMOTRIGINE25 MG PO; +PAROXETINE HCL40 MG PO
[2024-06-23] MEDS ORDERED: OXYCODONE/APAP 5/325 TAB PO ONE (12:30)
[2024-06-23] MEDS ORDERED: PERCOCET 5-3251 EACH PO (12:55)
[2024-06-23 13:06] VITALS: BP 163/78
== END 2024-06-23 13:06 | disposition home or self-care (01) ==
LOC: ED 10:19
DX: S93.401A Sprain of unspecified ligament of right ankle, initial encounter (principal); I10 Essential (primary) hypertension; E11.9 Type 2 diabetes mellitus without complications; K21.9 Gastro-esophageal reflux disease without esophagitis; X58.XXXA Exposure to other specified factors, initial encounter; Z86.73 Personal history of transient ischemic attack (TIA), and cerebral infarction without residual deficits; Z95.0 Presence of cardiac pacemaker; Z88.2 Allergy status to sulfonamides; Z88.8 Allergy status to other drugs, medicaments and biological substances; Z79.899 Other long term (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
CPT/HCPCS: 73590; 73610; 99283

== ENCOUNTER 2024-06-30 15:32 | Emergency (ER) | payer MEDICARE ==
[~2024-06-30] VITALS: Ht 170.2 cm; Wt 102.7 kg
[~2024-06-30 15:32] MED LIST changes: +PERCOCET 5-3251 EACH PO
[2024-06-30] MEDS ORDERED: GABAPENTIN300 MG PO (15:49)
[2024-06-30] MEDS ORDERED: HYDROCODON-ACE1 EA10 PO (16:40)
[2024-06-30 16:48] VITALS: BP 161/82
== END 2024-06-30 16:50 | disposition home or self-care (01) ==
LOC: ED 15:32
DX: S93.401D Sprain of unspecified ligament of right ankle, subsequent encounter (principal); I10 Essential (primary) hypertension; K21.9 Gastro-esophageal reflux disease without esophagitis; E11.9 Type 2 diabetes mellitus without complications; W19.XXXA Unspecified fall, initial encounter; Z88.2 Allergy status to sulfonamides; Z88.8 Allergy status to other drugs, medicaments and biological substances; Z79.899 Other long term (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
CPT/HCPCS: 99282

== ENCOUNTER 2024-08-16 12:21 | Emergency (ER) | payer MEDICARE ==
[~2024-08-16] VITALS: Ht 170.2 cm; Wt 104.0 kg
[2024-08-16 18:20] LABS: INFLUENZA B NAA NEGATIVE (NEGATIVE); RESPIRATORY SYNCYTIAL VIR NAA NEGATIVE (NEGATIVE)
[2024-08-16] MEDS ORDERED: ONDANSETRON HCL4 MG PO (18:30)
[2024-08-16] MEDS ORDERED: DEXAMETHASONE SOD PHOS 10 MG/ML VIAL PO ONE (18:30)
[2024-08-16] MEDS ORDERED: ondansetron HCL 4 MG TAB PO ONE (18:30)
[2024-08-16] MEDS ORDERED: GUAIFENESIN 10 ML UNIT DOSE CUP PO ONE (18:30)
[2024-08-16 18:38] VITALS: BP 128/64
== END 2024-08-16 18:38 | disposition home or self-care (01) ==
LOC: ED 12:21
PROVIDERS: Emergency Medicine
DX: J06.9 Acute upper respiratory infection, unspecified (principal); I10 Essential (primary) hypertension; J45.909 Unspecified asthma, uncomplicated; K21.9 Gastro-esophageal reflux disease without esophagitis; E11.9 Type 2 diabetes mellitus without complications; Z86.73 Personal history of transient ischemic attack (TIA), and cerebral infarction without residual deficits; Z88.2 Allergy status to sulfonamides; Z88.8 Allergy status to other drugs, medicaments and biological substances; Z88.5 Allergy status to narcotic agent; Z79.899 Other long term (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
CPT/HCPCS: 71045; 87502; 99285-25; A9270; J1100; U0002

== ENCOUNTER 2024-08-29 11:03 | Emergency (ER) | payer MEDICARE ==
[~2024-08-29] VITALS: Ht 170.2 cm; Wt 101.4 kg
[2024-08-29] MEDS ORDERED: ARIPIPRAZOLE5 MG PO (12:44)
[2024-08-29 13:00] LABS: BASOPHILS 0.8 % (0-2); EOSINOPHILS 1.5 % (0-6); HEMATOCRIT 43.3 % (35.0-50.0); HEMOGLOBIN 14.3 g/dL (12.0-18.0); LYMPHOCYTES 28.1 % (24-44); MCH 26.9 (27-36); MCV 81.4 fl (81-99); MONOCYTES 4.6 % (0-12); PLATELET COUNT 191 K/uL (140-440); RBC 5.32 M/ul (4.3-5.7); RDW 16.5 (10.5-15.0)
[2024-08-29 13:12] LABS: ALBUMIN 3.4 g/dL (3.4-5.0); ALBUMIN/GLOBULIN RATIO 1.13 (1.1-2.4); BILIRUBIN, TOTAL 0.5 ng/dL (0.2-1.0); BUN/CREATININE RATIO 9.78 (6.0-28.6); CALCIUM 9.5 mg/dL (8.5-10.1); CREATININE, SERUM 0.92 mg/dL (0.55-1.02); PROTEIN, TOTAL 6.4 g/dL (6.4-8.2)
[2024-08-29 14:41] LABS: BILIRUBIN, URINE NEGATIVE (negative); BLOOD/HGB, URINE NEGATIVE (Negative); KETONE, URINE NEGATIVE (Negative); LEUK ESTERASE, URINE NEGATIVE (negative); NITRITE, URINE NEGATIVE (negative); PH, URINE 6.5 (5-7)
[2024-08-29 15:55] VITALS: BP 137/72
[2024-08-29 16:14] LABS: N. GONORRRHOEAE BY PCR NOT DETECTED (NOT DETECT)
== END 2024-08-29 15:55 | disposition home or self-care (01) ==
LOC: ED 11:03
PROVIDERS: Emergency Medicine
DX: R10.31 Right lower quadrant pain (principal); R10.2 Pelvic and perineal pain; I11.9 Hypertensive heart disease without heart failure; K21.9 Gastro-esophageal reflux disease without esophagitis; E11.9 Type 2 diabetes mellitus without complications; I69.351 Hemiplegia and hemiparesis following cerebral infarction affecting right dominant side; Z98.84 Bariatric surgery status; Z88.2 Allergy status to sulfonamides; Z88.8 Allergy status to other drugs, medicaments and biological substances; Z88.5 Allergy status to narcotic agent; Z79.899 Other long term (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
CPT/HCPCS: 36415; 51798; 74177; 80053; 81003; 85025; 99284-25; Q9967

== ENCOUNTER 2024-08-31 18:39 | Emergency (ER) | payer MEDICARE ==
[~2024-08-31] VITALS: Ht 170.2 cm; Wt 100.0 kg
[2024-08-31 19:19] LABS: BILIRUBIN, URINE NEGATIVE (negative); BLOOD/HGB, URINE NEGATIVE (Negative); KETONE, URINE NEGATIVE (Negative); LEUK ESTERASE, URINE NEGATIVE (negative); NITRITE, URINE NEGATIVE (negative)
[2024-08-31 19:20] LABS: BASOPHILS 1.5 % (0-2); EOSINOPHILS 2.6 % (0-6); HEMATOCRIT 45.6 % (35.0-50.0); HEMOGLOBIN 15.1 g/dL (12.0-18.0); LYMPHOCYTES 31.1 % (24-44); MCH 27.3 (27-36); MCV 82.5 fl (81-99); MONOCYTES 5.6 % (0-12); NEUTROPHILS 59.2 % (39-80); PLATELET COUNT 220 K/uL (140-440); RBC 5.53 M/ul (4.3-5.7); RDW 16.1 (10.5-15.0)
[2024-08-31] MEDS ORDERED: GABAPENTIN300 MG PO (19:24)
[2024-08-31 19:37] LABS: ACETAMINOPHEN 0 ug/mL (10-30); ALBUMIN 3.7 g/dL (3.4-5.0); ALBUMIN/GLOBULIN RATIO 1.03 (1.1-2.4); ALCOHOL, MEDICAL <3 ng/dL (<3); ALKALINE PHOSPHATASE 139 U/L (46-116); ALT (SGPT) 25 U/L (14-59); ANION GAP 13.2 (7-21); AST (SGOT) 15 U/L (15-37); BILIRUBIN, TOTAL 0.3 ng/dL (0.2-1.0); CALCIUM 9.4 mg/dL (8.5-10.1); CARBON DIOXIDE 28 mmol/L (21-32); CHLORIDE 96 mmol/L (98-107); CREATININE, SERUM 0.96 mg/dL (0.55-1.02); GLOMERULAR FILTRATION RATE,EST 64 mL/min (>60); POTASSIUM 4.2 mmol/L (3.5-5.1); PROTEIN, TOTAL 7.3 g/dL (6.4-8.2); SALICYLATE 1.9 mg/dL (2.8-20.0); TSH, 3RD GENERATION 3.398 uIU/mL (0.358-3.740); UREA NITROGEN 12 mg/dL (7-18)
[2024-08-31 19:46] LABS: AMPHETAMINES, URINE NEGATIVE (NEGATIVE); BARBITURATES, URINE NEGATIVE (NEGATIVE); BENZODIAZEPINE, URINE NEGATIVE (NEGATIVE); BUPRENORPHINE, URINE NEGATIVE (NEGATIVE); CANNABINOID, URINE NEGATIVE (NEGATIVE); COCAINE, URINE NEGATIVE (NEGATIVE); ECSTASY, URINE NEGATIVE (NEGATIVE); FENTANYL, URINE NEGATIVE (NEGATIVE); METHADONE, URINE NEGATIVE (NEGATIVE); OPIATES, URINE NEGATIVE (NEGATIVE); OXYCODONE, URINE NEGATIVE (NEGATIVE); PHENCYCLIDINE, URINE NEGATIVE (NEGATIVE)
[2024-08-31] MEDS ORDERED: ARIPiprazole 10 MG TAB PO SCH (21:00)
[2024-08-31] MEDS ORDERED: ACETAMINOPHEN 500 MG TAB PO SCH (21:00)
[2024-08-31] MEDS ORDERED: PARoxetine HCL 20 MG TAB PO SCH (21:00)
[2024-08-31] MEDS ORDERED: FLUTICASONE PROPIONATE 50 MCG BTL NAS SCH (21:00)
[2024-08-31] MEDS ORDERED: INHALER, ASSIST DEVICES 1 EACH SPACER MISC ONE (22:15)
[2024-08-31] MEDS ORDERED: ALBUTEROL SULFATE 8 GM INH INH PRN (22:15)
[2024-08-31] MEDS ORDERED: ALBUTEROL/IPRATROPIUM 3 ML NEB INH ONE (22:45)
[2024-08-31 23:39] VITALS: BP 130/80
--- NOTE | 2024-09-01 22:18 | EKG ---
[facility] [address] [place] [address] Signed Atrial-sensed ventricular-paced rhythm Abnormal ECG When compared with ECG of 11-FEB-2024 16:47, Vent. rate has decreased BY 21 BPM Confirmed by Aleah De La Torre MD () on 09/01/2024 10:18:31 PM Electronically Signed By: ALEAH DE LA TORRE MD 09/01/24 2218 PATIENT NAME: BERNARDA ALARCON AIDE Electrocardiogram DATE OF : 55 PHYSICIAN: ALEAH DE LA TORRE MD REPORT #: [id number] REPORT IS CONFIDENTIAL AND NOT TO BE RELEASED WITHOUT AUTHORIZATION
== END 2024-08-31 23:46 | disposition home or self-care (01) ==
LOC: ED 18:39
PROVIDERS: Emergency Medicine
DX: F32.9 Major depressive disorder, single episode, unspecified (principal); F23 Brief psychotic disorder; E11.65 Type 2 diabetes mellitus with hyperglycemia; I10 Essential (primary) hypertension; I69.951 Hemiplegia and hemiparesis following unspecified cerebrovascular disease affecting right dominant side; Z95.0 Presence of cardiac pacemaker; Z88.2 Allergy status to sulfonamides; Z88.8 Allergy status to other drugs, medicaments and biological substances; Z79.899 Other long term (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; Z11.52 Encounter for screening for COVID-19
CPT/HCPCS: 36415; 80053; 80307; 81003; 84443; 85025; 93005; 93010; 94640; 99285; A9270; G0480; U0002

== ENCOUNTER 2024-09-02 17:54 | Emergency (ER) | payer MEDICARE ==
[~2024-09-02] VITALS: Ht 170.2 cm; Wt 102.1 kg
[2024-09-02 18:23] LABS: BILIRUBIN, URINE NEGATIVE (negative); BLOOD/HGB, URINE TRACE-I (Negative); KETONE, URINE NEGATIVE (Negative); LEUK ESTERASE, URINE TRACE (negative); NITRITE, URINE NEGATIVE (negative)
[2024-09-02 18:36] LABS: RED BLOOD CELLS, URINE 0-1 /hpf (0-5)
[2024-09-02 18:38] LABS: AMPHETAMINES, URINE NEGATIVE (NEGATIVE); BACTERIA, URINE RARE /hpf (negative); BARBITURATES, URINE NEGATIVE (NEGATIVE); BENZODIAZEPINE, URINE NEGATIVE (NEGATIVE); BUPRENORPHINE, URINE NEGATIVE (NEGATIVE); CANNABINOID, URINE NEGATIVE (NEGATIVE); CASTS, URINE NONE SEEN \\lpf; COCAINE, URINE NEGATIVE (NEGATIVE); COLLECTION TYPE, URINE CLEAN CATCH; CRYSTALS, URINE NONE SEEN (0-1+); ECSTASY, URINE NEGATIVE (NEGATIVE); FENTANYL, URINE NEGATIVE (NEGATIVE); METHADONE, URINE NEGATIVE (NEGATIVE); OPIATES, URINE NEGATIVE (NEGATIVE); OXYCODONE, URINE NEGATIVE (NEGATIVE); PHENCYCLIDINE, URINE NEGATIVE (NEGATIVE); REFLEX CULTURE, URINE No (No)
[2024-09-02 18:40] LABS: BASOPHILS 1.2 % (0-2); EOSINOPHILS 2.3 % (0-6); LYMPHOCYTES 30.3 % (24-44); MCH 27.4 (27-36); MCHC 34.1 g/dl (30-36); MCV 80.4 fl (81-99); MONOCYTES 6.5 % (0-12); NEUTROPHILS 59.7 % (39-80); PLATELET COUNT 190 K/uL (140-440)
[2024-09-02 19:03] LABS: ACETAMINOPHEN 0 ug/mL (10-30); ALBUMIN 3.4 g/dL (3.4-5.0); ALCOHOL, MEDICAL <3 ng/dL (<3); ALKALINE PHOSPHATASE 119 U/L (46-116); ALT (SGPT) 24 U/L (14-59); ANION GAP 14.9 (7-21); AST (SGOT) 17 U/L (15-37); BILIRUBIN, TOTAL 0.5 ng/dL (0.2-1.0); CALCIUM 9.1 mg/dL (8.5-10.1); CARBON DIOXIDE 26 mmol/L (21-32); CHLORIDE 99 mmol/L (98-107); CREATININE, SERUM 0.86 mg/dL (0.55-1.02); GLOMERULAR FILTRATION RATE,EST 74 mL/min (>60); POTASSIUM 3.9 mmol/L (3.5-5.1); PROTEIN, TOTAL 6.5 g/dL (6.4-8.2); SALICYLATE 1.8 mg/dL (2.8-20.0); TSH, 3RD GENERATION 3.241 uIU/mL (0.358-3.740); UREA NITROGEN 8 mg/dL (7-18)
[2024-09-02] MEDS ORDERED: ARIPiprazole 10 MG TAB PO ONE (21:00)
[2024-09-02] MEDS ORDERED: ACETAMINOPHEN 500 MG TAB PO PRN (21:00)
[2024-09-02] MEDS ORDERED: FLUTICASONE PROPIONATE 50 MCG BTL NAS ONE (21:00)
[2024-09-02] MEDS ORDERED: PARoxetine HCL 20 MG TAB PO ONE (21:00)
[2024-09-02] MEDS ORDERED: ACETAMINOPHEN 500 MG TAB PO ONE (21:00)
[2024-09-03] MEDS ORDERED: ALBUTEROL SULFATE 0.5% 2.5 MG/0.5 ML VIAL INH PRN (03:30)
[2024-09-03] MEDS ORDERED: QUETIAPINE FUMARATE 25 MG TAB PO ONE (04:00)
[2024-09-03] MEDS ORDERED: ARIPiprazole 10 MG TAB PO SCH (21:00)
[2024-09-03] MEDS ORDERED: PARoxetine HCL 20 MG TAB PO SCH (21:00)
[2024-09-03] MEDS ORDERED: QUETIAPINE FUMARATE 25 MG TAB PO SCH (21:22)
[2024-09-03] MEDS ORDERED: ALBUTEROL/IPRATROPIUM 3 ML NEB INH ONE (22:15)
--- NOTE | 2024-09-03 22:45 | EKG ---
[facility] [address] [place] [address] Signed Atrial-sensed ventricular-paced rhythm Abnormal ECG When compared with ECG of 31-AUG-2024 21:21, Vent. rate has increased BY 12 BPM Confirmed by Aleah De La Torre MD () on 09/03/2024 10:45:13 PM Electronically Signed By: ALEAH DE LA TORRE MD 09/03/24 2245 PATIENT NAME: BERNARDA ALARCON AIDE Electrocardiogram DATE OF : 55 PHYSICIAN: ALEAH DE LA TORRE MD REPORT #: [id number] REPORT IS CONFIDENTIAL AND NOT TO BE RELEASED WITHOUT AUTHORIZATION
[2024-09-04 08:03] VITALS: BP 153/95
== END 2024-09-04 08:05 ==
LOC: ED 17:54
PROVIDERS: Emergency Medicine
DX: R45.851 Suicidal ideations (principal); F29 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ogical condition; I11.9 Hypertensive heart disease without heart failure; E11.9 Type 2 diabetes mellitus without complications; K21.9 Gastro-esophageal reflux disease without esophagitis; Z86.73 Personal history of transient ischemic attack (TIA), and cerebral infarction without residual deficits; Z88.2 Allergy status to sulfonamides; Z88.8 Allergy status to other drugs, medicaments and biological substances; Z88.5 Allergy status to narcotic agent; Z79.899 Other long term (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
CPT/HCPCS: 36415; 71045; 80053; 80307; 81001; 84443; 85025; 93005; 93010; 99285-25; A9270; G0480; U0002

== ENCOUNTER 2024-09-16 15:39 | Emergency (ER) | payer MEDICARE ==
[~2024-09-16] VITALS: Ht 170.2 cm; Wt 106.1 kg
[2024-09-16 16:12] LABS: AMPHETAMINES, URINE NEGATIVE (NEGATIVE); BARBITURATES, URINE NEGATIVE (NEGATIVE); BENZODIAZEPINE, URINE NEGATIVE (NEGATIVE); BUPRENORPHINE, URINE NEGATIVE (NEGATIVE); CANNABINOID, URINE NEGATIVE (NEGATIVE); COCAINE, URINE NEGATIVE (NEGATIVE); ECSTASY, URINE NEGATIVE (NEGATIVE); FENTANYL, URINE NEGATIVE (NEGATIVE); METHADONE, URINE NEGATIVE (NEGATIVE); OPIATES, URINE NEGATIVE (NEGATIVE); OXYCODONE, URINE NEGATIVE (NEGATIVE); PHENCYCLIDINE, URINE NEGATIVE (NEGATIVE)
[2024-09-16 16:19] LABS: BASOPHILS 2.4 % (0-2); EOSINOPHILS 2.7 % (0-6); HEMATOCRIT 38.3 % (35.0-50.0); HEMOGLOBIN 12.7 g/dL (12.0-18.0); LYMPHOCYTES 31.2 % (24-44); MCH 27.2 (27-36); MCHC 33.2 g/dl (30-36); MCV 81.9 fl (81-99); MONOCYTES 5.6 % (0-12); NEUTROPHILS 58.1 % (39-80); PLATELET COUNT 183 K/uL (140-440); RBC 4.68 M/ul (4.3-5.7); RDW 16.1 (10.5-15.0)
[2024-09-16] MEDS ORDERED: ARIPIPRAZOLE30 MG PO (16:47)
[2024-09-16] MEDS ORDERED: PROPRANOLOL HCL10 MG PO (16:47)
[2024-09-16] MEDS ORDERED: LORAZEPAM0.5 MG PO (16:47)
[2024-09-16] MEDS ORDERED: METFORMIN HCL500 MG PO (16:47)
[2024-09-16] MEDS ORDERED: OLANZAPINE10 MG PO (16:47)
[2024-09-16 16:54] LABS: ACETAMINOPHEN 0 ug/mL (10-30); ALBUMIN 3.2 g/dL (3.4-5.0); ALBUMIN/GLOBULIN RATIO 1.07 (1.1-2.4); ALCOHOL, MEDICAL <3 ng/dL (<3); ALKALINE PHOSPHATASE 114 U/L (46-116); ALT (SGPT) 27 U/L (14-59); ANION GAP 14.9 (7-21); AST (SGOT) 17 U/L (15-37); BILIRUBIN, TOTAL 0.4 ng/dL (0.2-1.0); CALCIUM 8.7 mg/dL (8.5-10.1); CARBON DIOXIDE 26 mmol/L (21-32); CHLORIDE 100 mmol/L (98-107); CREATININE, SERUM 0.72 mg/dL (0.55-1.02); GLOMERULAR FILTRATION RATE,EST 90 mL/min (>60); POTASSIUM 3.9 mmol/L (3.5-5.1); PROTEIN, TOTAL 6.2 g/dL (6.4-8.2); SALICYLATE 1.3 mg/dL (2.8-20.0); UREA NITROGEN 9 mg/dL (7-18)
[2024-09-16 17:16] LABS: TSH, 3RD GENERATION 2.383 uIU/mL (0.358-3.740)
[2024-09-16] MEDS ORDERED: FLUTICASONE PROPIONATE 50 MCG BTL NAS SCH (21:00)
[2024-09-16] MEDS ORDERED: ARIPiprazole 10 MG TAB PO SCH (21:00)
[2024-09-16] MEDS ORDERED: ACETAMINOPHEN 500 MG TAB PO SCH (21:00)
[2024-09-16] MEDS ORDERED: PROPRANOLOL HCL 10 MG TAB PO SCH (21:00)
[2024-09-16] MEDS ORDERED: OLANZapine 10 MG TAB PO SCH (21:00)
[2024-09-16] MEDS ORDERED: metFORMIN HCL 500 MG TAB PO SCH (21:00)
[2024-09-16] MEDS ORDERED: PARoxetine HCL 20 MG TAB PO SCH (21:00)
[2024-09-17] MEDS ORDERED: INHALER, ASSIST DEVICES 1 EACH SPACER MISC ONE (07:45)
[2024-09-17] MEDS ORDERED: ALBUTEROL SULFATE 8 GM HOME.PACK INH ONE (07:45)
[2024-09-17 15:43] VITALS: BP 153/70
[2024-09-17] MEDS ORDERED: metFORMIN HCL 500 MG TAB PO SCH (21:00)
== END 2024-09-17 15:43 | disposition home or self-care (01) ==
LOC: ED 15:39
PROVIDERS: Emergency Medicine
DX: F25.9 Schizoaffective disorder, unspecified (principal); R45.851 Suicidal ideations; I10 Essential (primary) hypertension; E11.9 Type 2 diabetes mellitus without complications; Z86.73 Personal history of transient ischemic attack (TIA), and cerebral infarction without residual deficits; Z88.2 Allergy status to sulfonamides; Z88.8 Allergy status to other drugs, medicaments and biological substances; Z79.899 Other long term (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; Z79.84 Long term (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 of 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
CPT/HCPCS: 36415; 80053; 80307; 84443; 85025; 99285; A9270; G0480

== ENCOUNTER 2024-09-22 09:27 | Emergency (ER) | payer MEDICARE ==
[~2024-09-22] VITALS: Ht 170.2 cm; Wt 65.0 kg
[~2024-09-22 09:27] MED LIST changes: +ARIPIPRAZOLE30 MG PO; +LORAZEPAM0.5 MG PO; +PROPRANOLOL HCL10 MG PO
[2024-09-22] MEDS ORDERED: LORazepam 1 MG TAB PO ONE (10:00)
[2024-09-22 10:18] LABS: BASOPHILS 1.2 % (0-2); EOSINOPHILS 3.2 % (0-6); HEMATOCRIT 39.7 % (35.0-50.0); HEMOGLOBIN 13.2 g/dL (12.0-18.0); LYMPHOCYTES 29.7 % (24-44); MCH 27.2 (27-36); MCHC 33.1 g/dl (30-36); MONOCYTES 5.9 % (0-12); PLATELET COUNT 193 K/uL (140-440); RBC 4.85 M/ul (4.3-5.7)
[2024-09-22 10:39] LABS: ACETAMINOPHEN 0 ug/mL (10-30); ALBUMIN 3.3 g/dL (3.4-5.0); ALCOHOL, MEDICAL <3 ng/dL (<3); ALKALINE PHOSPHATASE 134 U/L (46-116); ALT (SGPT) 26 U/L (14-59); ANION GAP 14.2 (7-21); AST (SGOT) 16 U/L (15-37); BILIRUBIN, TOTAL 0.4 ng/dL (0.2-1.0); BUN/CREATININE RATIO 14.94 (6.0-28.6); CALCIUM 9.4 mg/dL (8.5-10.1); CARBON DIOXIDE 29 mmol/L (21-32); CHLORIDE 97 mmol/L (98-107); CREATININE, SERUM 0.87 mg/dL (0.55-1.02); GLOMERULAR FILTRATION RATE,EST 72 mL/min (>60); POTASSIUM 4.2 mmol/L (3.5-5.1); PROTEIN, TOTAL 6.6 g/dL (6.4-8.2); SALICYLATE 1.8 mg/dL (2.8-20.0); TSH, 3RD GENERATION 2.834 uIU/mL (0.358-3.740); UREA NITROGEN 13 mg/dL (7-18)
[2024-09-22 10:50] LABS: BILIRUBIN, URINE NEGATIVE (negative); BLOOD/HGB, URINE NEGATIVE (Negative); KETONE, URINE NEGATIVE (Negative); LEUK ESTERASE, URINE TRACE (negative); NITRITE, URINE NEGATIVE (negative); PH, URINE 5.5 (5-7)
[2024-09-22 10:51] LABS: INFLUENZA B NAA NEGATIVE (NEGATIVE); RESPIRATORY SYNCYTIAL VIR NAA NEGATIVE (NEGATIVE)
[2024-09-22 10:59] LABS: BACTERIA, URINE NONE SEEN /hpf (negative); CASTS, URINE NONE SEEN \\lpf; COLLECTION TYPE, URINE CLEAN CATCH; CRYSTALS, URINE NONE SEEN (0-1+); RED BLOOD CELLS, URINE 0-1 /hpf (0-5); REFLEX CULTURE, URINE No (No)
[2024-09-22 11:04] LABS: AMPHETAMINES, URINE NEGATIVE (NEGATIVE); BARBITURATES, URINE NEGATIVE (NEGATIVE); BENZODIAZEPINE, URINE NEGATIVE (NEGATIVE); BUPRENORPHINE, URINE NEGATIVE (NEGATIVE); CANNABINOID, URINE NEGATIVE (NEGATIVE); COCAINE, URINE NEGATIVE (NEGATIVE); ECSTASY, URINE NEGATIVE (NEGATIVE); FENTANYL, URINE NEGATIVE (NEGATIVE); METHADONE, URINE NEGATIVE (NEGATIVE); OPIATES, URINE NEGATIVE (NEGATIVE); OXYCODONE, URINE NEGATIVE (NEGATIVE); PHENCYCLIDINE, URINE NEGATIVE (NEGATIVE)
[2024-09-22 13:45] VITALS: BP 148/68
--- NOTE | 2024-09-23 12:17 | EKG ---
[facility] [address] [facility] [place] [address] Signed Atrial-sensed ventricular-paced rhythm Abnormal ECG When compared with ECG of 02-SEP-2024 18:46, Vent. rate has decreased BY 29 BPM Confirmed by Richard Blount MD ([id number]) on 09/23/2024 12:17:45 PM Electronically Signed By: RICHARD BLOUNT DO 09/23/24 1217 PATIENT NAME: BERNARDA ALARCON AIDE Electrocardiogram DATE OF : 55 PHYSICIAN: RICHARD BLOUNT DO REPORT #: [id number] REPORT IS CONFIDENTIAL AND NOT TO BE RELEASED WITHOUT AUTHORIZATION
== END 2024-09-22 13:51 | disposition home or self-care (01) ==
LOC: ED 09:27
PROVIDERS: Emergency Medicine
DX: F25.0 Schizoaffective disorder, bipolar type (principal); I10 Essential (primary) hypertension; E11.9 Type 2 diabetes mellitus without complications; Z86.73 Personal history of transient ischemic attack (TIA), and cerebral infarction without residual deficits; Z88.2 Allergy status to sulfonamides; Z88.8 Allergy status to other drugs, medicaments and biological substances; K21.9 Gastro-esophageal reflux disease without esophagitis; Z79.899 Other long term (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; Z79.84 Long term (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 of 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
CPT/HCPCS: 36415; 80053; 80307; 81001; 84443; 85025; 87502; 93005; 93010; 99285; A9270-GY; G0480; U0002

== ENCOUNTER 2024-11-03 01:27 | Emergency (ER) | payer MEDICARE ==
[~2024-11-03] VITALS: Ht 170.2 cm; Wt 69.9 kg
[2024-11-03 01:48] LABS: BASOPHILS 1.5 % (0-2); EOSINOPHILS 2.7 % (0-6); HEMATOCRIT 39.5 % (35.0-50.0); HEMOGLOBIN 13.3 g/dL (12.0-18.0); LYMPHOCYTES 44.8 % (24-44); MCH 27.4 (27-36); MCHC 33.8 g/dl (30-36); MCV 81.2 fl (81-99); MONOCYTES 7.8 % (0-12); NEUTROPHILS 43.2 % (39-80); PLATELET COUNT 182 K/uL (140-440); RBC 4.87 M/ul (4.3-5.7); RDW 15.8 (10.5-15.0)
[2024-11-03 02:12] LABS: ALBUMIN 3.2 g/dL (3.4-5.0); ALBUMIN/GLOBULIN RATIO 0.97 (1.1-2.4); BILIRUBIN, TOTAL 0.4 ng/dL (0.2-1.0); BUN/CREATININE RATIO 13.54 (6.0-28.6); CREATININE, SERUM 0.96 mg/dL (0.55-1.02); PROTEIN, TOTAL 6.5 g/dL (6.4-8.2)
[2024-11-03 02:23] LABS: BILIRUBIN, URINE NEGATIVE (negative); BLOOD/HGB, URINE NEGATIVE (Negative); KETONE, URINE NEGATIVE (Negative); LEUK ESTERASE, URINE NEGATIVE (negative); NITRITE, URINE NEGATIVE (negative)
[2024-11-03 02:43] VITALS: BP 154/64
== END 2024-11-03 02:46 | disposition home or self-care (01) ==
LOC: ED 01:27
PROVIDERS: Family Medicine
DX: F45.8 Other somatoform disorders (principal); N95.0 Postmenopausal bleeding; I10 Essential (primary) hypertension; K21.9 Gastro-esophageal reflux disease without esophagitis; E11.9 Type 2 diabetes mellitus without complications; Z86.73 Personal history of transient ischemic attack (TIA), and cerebral infarction without residual deficits; Z88.2 Allergy status to sulfonamides; Z88.5 Allergy status to narcotic agent; Z88.8 Allergy status to other drugs, medicaments and biological substances; Z79.84 Long term (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 of 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; Z79.899 Other long term (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
CPT/HCPCS: 36415; 80053; 81003; 84702; 85025; 99284

== ENCOUNTER 2024-11-16 09:18 | Inpatient (IN) | payer MEDICARE ==
[2024-11-16] VITALS (8 sets, daily range): BP systolic 138–148; BP diastolic 66–78
[~2024-11-16] VITALS: Ht 170.2 cm; Wt 107.1 kg
[2024-11-16 09:32] LABS: EOSINOPHILS 2.5 % (0-6); HEMATOCRIT 41.5 % (35.0-50.0); HEMOGLOBIN 13.7 g/dL (12.0-18.0); LYMPHOCYTES 29.6 % (24-44); MCH 27.4 (27-36); MCHC 33.1 g/dl (30-36); MONOCYTES 6.5 % (0-12); NEUTROPHILS 60.4 % (39-80); PLATELET COUNT 169 K/uL (140-440); RBC 4.99 M/ul (4.3-5.7); RDW 15.8 (10.5-15.0)
[2024-11-16 09:42] LABS: INR 0.99 (0.80-1.30); PROTIME 12.9 Sec (11.2-14.2)
[2024-11-16 09:44] LABS: PARTIAL THROMBOPLASTIN TIME 22.8 Sec (22.9-41.3)
[2024-11-16 09:52] LABS: ALBUMIN 3.2 g/dL (3.4-5.0); ANION GAP 12.6 (7-21); BILIRUBIN, TOTAL 0.4 ng/dL (0.2-1.0); BUN/CREATININE RATIO 16.66 (6.0-28.6); CALCIUM 9.2 mg/dL (8.5-10.1); CREATININE, SERUM 0.9 mg/dL (0.55-1.02); POTASSIUM 4.6 mmol/L (3.5-5.1); PROTEIN, TOTAL 6.4 g/dL (6.4-8.2)
[2024-11-16] MEDS ORDERED: AMOX TR-K CLV1 EAC1 PO (10:15)
[2024-11-16] MEDS ORDERED: INSULIN LISPRO 100 UNIT/ML ML SUB-Q ONE (10:45)
[2024-11-16] MEDS ORDERED: PHARMACY RENAL DOSE ADJUSTMENT 1 DOSE MISC PO SCH (12:00)
[2024-11-16] MEDS ORDERED: DEXTROSE 50% 50 ML SYR IV PRN ×2 (12:00)
[2024-11-16] MEDS ORDERED: INSULIN LISPRO 100 UNIT/ML ML SUB-Q SCH (12:00)
[2024-11-16] MEDS ORDERED: IBLOOD GLUCOSE TEST STRIP 1 EA TEST VI SCH (12:00)
[2024-11-16] MEDS ORDERED: ondansetron HCL 4 MG/2 ML VIAL IV PRN (12:00)
[2024-11-16] MEDS ORDERED: GLUCAGON,HUMAN RECOMBINANT 1 MG/ML VIAL SUB-Q PRN (12:00)
[2024-11-16] MEDS ORDERED: ACETAMINOPHEN 325 MG TAB PO PRN (12:00)
[2024-11-16] MEDS ORDERED: IBLOOD GLUCOSE TEST STRIP 1 EA TEST XX PRN (12:00)
[2024-11-16] MEDS ORDERED: DEXTROSE 5% 1,000 ML IV PRN (12:00)
[2024-11-16] MEDS ORDERED: METFORMIN HCL500 M1 PO (12:06)
--- NOTE | 2024-11-16 13:00 | NUR ---
PT ARRIVES TO FLOOR VIA STRETCHER AND PIVOT TRANSFERS WITHOUT DIFFICULTY ON LEFT SIDE. NIH SCORE REMAINS 4 AT THIS TIME. LEFT ARM AND LEG WEAKNESS. PT DENIES PAIN. ADMISSION ASSESSMENT COMPLETE. DIET ORDER CHANGED TO SOFT/BITE SIZED R/T PT WITHOUT DENTURES. DO DIFFICULTY SWALLOWING NOTED. LUNCH ORDERED FOR PT-10 UNITS INSULIN ADMINISTERED IN ED PRIOR TO ARRIVAL TO MS FLOOR. VS STABLE. PT WITHOUT S/S OF EXACERBATED SCHIZOAFFECTIVE DISORDER, ABLE TO REPORT ALL MEDS AND HEALTH HISTORY. PT ORIENTED TO ROOM AND CALL LIGHT. INSTRUCTED TO CALL IF NEEDING TO GO TO BATHROOM R/T FALL RISK.
[2024-11-16] MEDS ORDERED: PULMICORT0.5 MG/2 M INH (14:06)
[2024-11-16] MEDS ORDERED: IPRAT-ALBUT 0.5-3 ML INH (14:06)
--- NOTE | 2024-11-16 14:07 | NUR ---
MED REC COMPLETE
--- NOTE | 2024-11-16 14:13 | NUR ---
PATIENT IN BED EATING. ALERT AND ORIENTED. PERSONAL INFORMATION REVIEWED. PATIENT LIVES IN AN APARTMENT. DENIES ANY DIFFCULTY DOING THE STAIRS OR GETTING OUT OF BED. PATIENT USES A CANE. NO OXYGEN OR CPAP AT HOME. PATIENT DOES NOT LIVE WITH ANYONE AND DOES NOT DRIVE. SHE USES THE [employer] OR BUS. SHE WILL NEED A CARE RIDE HOME. SHE USES [employer] FOR FOOD. THEY SEND HER MEAL WEEKLY FOR HER MENTAL ILLNESS. "COOKING GIVES ME ANXIETY." SHE ALSO RECIEVES FOOD STAMPS AND DENIES DIFFCULTY PAYING UTILITIES. DENIES ANY CM NEEDS AT THIS TIME.
--- NOTE | 2024-11-16 14:15 | NUR ---
MRI WILL BE COMING IN TOMORROW AT 0600 TO COMPLETE SCAN. PRIMARY RN NOTIFIED AND WILL UPDATE PATIENT.
--- NOTE | 2024-11-16 14:15 | NUR ---
NOTIFIED BY DMITRIY ANG THAT PT HAD REQUESTED SPIRITUAL CARE CONSULT. PT IN OVERALL GOOD SPIRITS, REQUESTED PRAYER, BIBLE. OTOLARYNGOLOGY NURSE PROVIDED SUPPORTIVE PRESENCE, HOSPITALITY, PRAYER, PROVIDED BIBLE, GUIDEPOST. PT EXPRESSED GRATITDUE.
--- NOTE | 2024-11-16 14:22 | EKG ---
[facility] [address] [place] [address] Signed Atrial-sensed ventricular-paced rhythm Abnormal ECG When compared with ECG of 22-SEP-2024 10:50, Vent. rate has decreased BY 3 BPM Confirmed by Aleah De La Torre MD () on 11/16/2024 2:22:25 PM Electronically Signed By: ALEAH DE LA TORRE MD 11/16/24 142 PATIENT NAME: BERNARDA ALARCON AIDE Electrocardiogram DATE OF : 55 PHYSICIAN: ALEAH DE LA TORRE MD REPORT #: [id number] REPORT IS CONFIDENTIAL AND NOT TO BE RELEASED WITHOUT AUTHORIZATION
[2024-11-16] MEDS ORDERED: AMOXICILLIN/CLAVULANATE K 875 MG TAB PO SCH (14:27)
[2024-11-16] MEDS ORDERED: ALBUTEROL SULFATE 0.083% 3 ML VIAL INH PRN (14:45)
--- NOTE | 2024-11-16 15:00 | NUR ---
PT AMBULATING IN HALLWAY WITH PT/OT FOR EVAL/TREAT.
--- NOTE | 2024-11-16 15:12 | NUR ---
UR CLINICAL REVIEW: 2MN SHIRA, MEETS OBS CRITERIA MEDICARE OBS 11/16/24 @ 1153 ORDER MATCHES REG NO AUTH REQUIRED PER MEDICARE RULES DC PLAN PENDING FURTHER EVAL. 11/17/24
--- NOTE | 2024-11-16 15:18 | NUR ---
WENT IN TO PATIENT'S ROOM TO DO TWO CLOCK VITALS. PATIENT ASKED IF WE HAD ANYTHING SO SHE COULD BRUSH HER TEETH. I GOT HER A TOOTH BRUSH AND TOOTH PASTE ALSO MOUTH WASH. WASH CLOTH AND A HAND TOWEL. PATIENT WASHED HER FACE AND BRUSHED HER TEETH AND USED THE MOUTH WASH.
--- NOTE | 2024-11-16 15:55 | NUR ---
SENT ORDER FOR EDGARDO TO [facility] WILL FAX MORE NOTES ON TUESDAY.
--- NOTE | 2024-11-16 16:05 | NUR ---
Patient returned to bed after sitting in their chair. Bed alarm set.
--- NOTE | 2024-11-16 16:31 | NUR ---
CALL PLACED TO MD TO CLARIFY POC REGARDING F/U CT VS MRI. PLAN TO REPEAT CT IN AM. PT RESTING IN BED WITHOUT COMPLAINTS.
--- NOTE | 2024-11-16 18:01 | NUR ---
rn in room to administer scheduled medication - [facility] reassessed, remains 4. pt eating dinner, c/o 04/02 pain in left arm described as "ache after the tingling wore off". pt requests to ask md about night home psych meds.
--- NOTE | 2024-11-16 20:05 | NUR ---
2004 - CALL LIGHT ANSWERED. PATIENT STATES "MY HEAD IS FEELING FUNNY AND MY RIGHT SIDE IS FEELING WEAK". THIS RN TO ROOM TO ASSESS PATIENT. PATIENT PRESENTING WITH RIGHT ARM AND RIGHT LEG DROOP, WORSE THAN THE LEFT. 2008 - CODE STROKE CALLED. MD DE LA TORRE, ROOF FOREMAN ROSALINDA, PRODUCTION LINE OPERATOR DELMER AND LAB TO ROOM. 2009 - NIH COMPLETED BY THIS RN. NIH OF 4. 2029- PATIENT TO CT WITH THIS RN AND MD DE LA TORRE. 2039 - MD DE LA TORRE SPOKE WITH NEUROLOGIST AND THEY RECOMMENDED A CTA. PATIENT BACK TO CT WITH MD DE LA TORRE AND THIS RN. 2119- PATIENT BACK IN ROOM. PATIENT STATES TO THIS RN "I AM HAVING CHEST PAIN. 8/10 PAIN. IT FEELS LIKES SOMETHING IS SITTING ON MY CHEST AND IT IS STARTING TO GET DIFFICULT TO BREATH". THIS RN UPDATED MD DE LA TORRE. EKG AND LABS COMPLETED. NO NEW FINDINGS AT THIS TIME. NO NEW ORDERS AT THIS TIME OTHER THAN TUMS FOR THE CHEST PAIN.
[2024-11-16] MEDS ORDERED: ARIPiprazole 10 MG TAB PO SCH (21:00)
[2024-11-16] MEDS ORDERED: MELATONIN 3 MG TAB PO PRN (21:00)
[2024-11-16] MEDS ORDERED: OLANZapine 10 MG TAB PO SCH (21:00)
[2024-11-16] MEDS ORDERED: PARoxetine HCL 20 MG TAB PO SCH (21:00)
[2024-11-16] MEDS ORDERED: CALCIUM CARBONATE 500 MG CHEW PO PRN (21:15)
--- NOTE | 2024-11-16 22:30 | NUR ---
PATIENT RESTING IN BED ON BACK WITH EYES CLOSED. RESPIRATIONS EVEN AND UNLABORED. CALL LIGHT IN REACH.
[2024-11-17] VITALS (11 sets, daily range): BP systolic 126–153; BP diastolic 56–87
--- NOTE | 2024-11-17 01:05 | NUR ---
CALL LIGHT ANSWERED. PT NEEDED TO USE BATHROOM. BIKE TECHNICIAN SBA WITH FWW TO BSC. PT VOIDED AND ASSISTED BACK TO BED. OUTPUT MEASURED. BIKE TECHNICIAN OBTAINED AND DOCUMENTED VITALS AND I&O. PT ICE WATER REFILLED. PT STATES NO FURTHER NEEDS AT THIS TIME. CALL LIGHT WITHIN REACH AND BED ALARM ON.
--- NOTE | 2024-11-17 02:24 | NUR ---
PATIENT RESTING IN BED ON BACK WITH EYES CLOSED. RESPIRATIONS EVEN AND UNLABORED. CALL LIGHT IN REACH.
--- NOTE | 2024-11-17 03:45 | NUR ---
PT REPORTS PAIN TO BILATERAL ARMS AND LEGS. PT DESCRIBES ACHING. PT STATES "THIS IS NOT UNUSUAL FOR ME." PRN ADMINISTERED, SEE EMAR. PT STATES THAT NUMBNESS AND TINGLING TO BILATERAL ARMS AND L LEG HAVE RESOLVED BUT R LEG AND FOOT CONTINUES TO HAVE NUMBNESS AND TINGLING. SHE REPORTS THAT SHE FEELS HER SPEECH IS IMPROVED. ICE WATER PROVIDED. PT DENIES FURTHER NEEDS AT THIS TIME. CALL LIGHT IN REACH.
--- NOTE | 2024-11-17 04:11 | NUR ---
PATIENT RESTING IN BED. VS OBTAINED AND RECORDED. NO FURTHER NEEDS. CALL LIGHT IN REACH.
[2024-11-17 05:34] LABS: HEMATOCRIT 40.1 % (35.0-50.0); HEMOGLOBIN 13.5 g/dL (12.0-18.0); MCH 27.5 (27-36); MCHC 33.7 g/dl (30-36); MCV 81.5 fl (81-99); MONOCYTES 6.5 % (0-12); NEUTROPHILS 41.5 % (39-80); PLATELET COUNT 160 K/uL (140-440); RBC 4.92 M/ul (4.3-5.7); RDW 15.7 (10.5-15.0)
--- NOTE | 2024-11-17 05:47 | NUR ---
CALL LIGHT ANSWERED. PATIENT UP TO BSC TO HAVE BM. PATIENT JENNA TO BED. NO FURTHER NEEDS AT THIS TIME. CALL LIGHT IN REACH. BED ALARM ON.
[2024-11-17 06:01] LABS: ALBUMIN/GLOBULIN RATIO 0.94 (1.1-2.4); ANION GAP 12.1 (7-21); BILIRUBIN, TOTAL 0.5 ng/dL (0.2-1.0); BUN/CREATININE RATIO 16.21 (6.0-28.6); CALCIUM 9.1 mg/dL (8.5-10.1); CREATININE, SERUM 0.74 mg/dL (0.55-1.02); MAGNESIUM 1.7 mg/dL (1.8-2.4); POTASSIUM 4.1 mmol/L (3.5-5.1); PROTEIN, TOTAL 6.2 g/dL (6.4-8.2)
--- NOTE | 2024-11-17 07:05 | NUR ---
REPORT RECEIVED FROM DMITRIY ARMIJO. PT RESTING ON L SIDE IN BED, EYES CLOSED, RR EVEN AND UNLABORED. CALL LIGHT IN REACH.
--- NOTE | 2024-11-17 07:41 | NUR ---
PT TRANSFERRED HERSELF INDEPENDENTLY FROM BSC TO BED WHEN THIS RN ENTERS. PT HAD VOID AND BM. PT REPORTS SHE PROVIDED HER OWN LAMAR-CARE. PT AMBULATES WITH FWW TO RECLINER WITH SBA. PT RESTING IN RECLINER WITH BLE ELEVATED, BLANKET PROVIDED, CURRENTLY SEARCHING FOR A MUSIC STATION ON TV. PT REPORTS THAT SHE WAS INSTRUCTED TO SPEAK FREQUENTLY BY OCCUPATIONAL THERAPY AND TO "JUST IGNORE ME" BECAUSE SHE INTENDED TO SPEAK TO HERSELF FREQUENTLY TODAY. NO OTHER REQUESTS, CALL LIGHT IN [facility].
--- NOTE | 2024-11-17 08:31 | NUR ---
MEDICATION ADMINISTERED, SEE MAR. PT REMAINS UP IN RECLINER WITH BLE ELEVATED, SHE IS REQUESTING JUICE. SUGAR FREE CRANBERRY PROVIDED. BREAKFAST TRAY ARRIVES, PT EXPRESSES EXCITEMENT SHE FEELS HUNGRY. NO OTHER REQUESTS AT THIS TIME, CALL LIGHT IN REACH.
[2024-11-17] MEDS ORDERED: MAGNESIUM CHLORIDE 64 MG TABCR PO ONE (09:00)
--- NOTE | 2024-11-17 10:07 | NUR ---
PT SITTING IN CHAIR WITH LEGS ELEVATED EATING BREAKFAST. CALL LIGHT WITHIN REACH, NO REQUESTS AT THIS TIME.
--- NOTE | 2024-11-17 11:02 | NUR ---
PT AMBULATES WITH SBA AND FWW FROM RECLINER TO RESTROOM. VOIDS, PROVIDES OWN LAMAR-CARE. PT BRUSHES TEETH AT SINK INDEPENDENTLY. PT WALKING BATH AND FORTH ACROSS ROOM WITH FWW, REPORTS SHE IS TIRED OF SITTING SO MUCH AND ENJOYS WALKING. PT FINISHES WALKING, LAYS DOWN IN BED. REFUSES SCDs AT THIS TIME. PT REQUESTS LOTION FOR HANDS - PROVIDED. FRESH ICE WATER PROVIDED. PT HAS NO OTHER REQUESTS AT THIS TIME, CALL LIGHT IN REACH.
--- NOTE | 2024-11-17 11:18 | NUR ---
ASSESSMENT COMPLETE. PT ALERT AND ORIENTED, CORRECTLY GIVES DATE, TIME, PLACE, AND EVENT. NO CONFUSION NOTED. PT PARENT COACH STRENGTH EQUAL BILATERALLY, LEG STRENGTH EQUAL BILATERALLY. PT REPORTS NUMBNESS TO BOTH FEET WITH TINGLING ALSO TO HER L FOOT. PT REPORTS SHE CAN FEEL THIS RN TOUCHING HER FEET IN VARIOUS LOCATIONS, BOTH WITH AND WITHOUT PRESSURE. PT MARCHES IN PLACE WITH FWW WITH EQUAL FOOT RISE, RAISES HER LEGS INTO BED WITHOUT EFFORT AND CAN PUSH AND PULL WITH HER FEET WITH EQUAL STRENGTH. PT HAS NO COMPLAINTS OF ANY DISCOMFORT, WEAKNESS, OR PAIN AT THIS TIME. TELE #[address], HEART SOUNDS REGULAR, PULSES 2+ AND STRONG IN ALL FOUR EXTREMETIES. PT WITH NO REQUESTS AT THIS TIME, CALL LIGHT AND PERSONAL BELONGINGS IN REACH.
--- NOTE | 2024-11-17 13:23 | NUR ---
IN TO ASSESS AND SPEAK WITH PT. ALL QUESTIONS ANSWERED. KELIN, NAIL ARTIST PRESENT TAKING VS.
--- NOTE | 2024-11-17 13:36 | NUR ---
PT REQUESTING NEBULIZER TREATMENT. RESPIRATORY THERAPY NOT RESPONDING TO CALLS, NEBULIZER TREATMENT SET-UP AND PROVIDED BY THIS RN. PT REPORTING SHORTNESS OF BREATH AND TIGHTNESS IN CHEST. LUNG SOUNDS CLEAR THROUGHOUT, OXYGEN SATURATION 97% ON ROOM AIR. PT CURRENTLY USING NEBULIZER. NO OTHER REQUESTS, CALL LIGHT IN REACH.
--- NOTE | 2024-11-17 13:44 | NUR ---
PT FINISHES NEBULIZER TREATMENT, REPORTS HER WORK OF BREATHING IS EASIER AND SHE FEELS BETTER. SPO2 97%, PT APPEARS COMFORTABLE IN BED, REPORTS SHE WILL TRY AND NAP. NO OTHER REQUESTS, CALL LIGHT IN REACH.
--- NOTE | 2024-11-17 14:58 | NUR ---
PT AMBULATES WITH SBA AND FWW TO BATHROOM. EDUCATED SENIOR ACCOUNTING ANALYST CORD USE, PT VERBALIZES UNDERSTANDING.
--- NOTE | 2024-11-17 15:10 | NUR ---
PT AMBULATES WITH FWW AND SBA FROM RESTROOM BACK TO BED. HR SUSTAINS>125 DURING THIS TIME AND PT EXPERIENCES DYSPNEA. PT LUNG SOUNDS CLEAR THROUGHOUT, SPO2 99%, HEART RATE REGULAR. PT RESTING ON R SIDE IN BED WITH HOB ELEVATED, RECOVERS QUICKLY AND HR DECREASES TO 90s. PT REPORTS DECREASED SOB. PT REMAINS RESTING IN BED AT THIS TIME, CALL LIGHT IN REACH, NO OTHER REQUESTS.
--- NOTE | 2024-11-17 16:50 | NUR ---
PT REPORTING CONCERNS THAT SHE IS HAVING VISUAL HALLUCINATIONS THAT STARTED AT 1530 AND THAT THIS IS COMMON FOR HER WHEN SHE HASN'T HAD HER PSYCHIATRIC MEDICATIONS. SHE EXPRESSES THAT SHE IS NOT FRIGHTENED, THIS IS A COMMON OCCURENCE, BUT WOULD LIKE MD TO KNOW. NOTIFIED AND STATES HE WILL RE-INSTATE PTs PSYCHIATRIC MEDICATIONS THIS EVENING.
--- NOTE | 2024-11-17 18:08 | NUR ---
PT REQUESTING "ANYTHING WITH SUGAR". PT EDUCATED ON HER BLOOD SUGAR LEVEL, ENCOURAGED TO HAVE SNACKS OTHER THAN SUGARY ONES. PT REPORTS SHE IS FEELING ANXIOUS AND IS ABOUT TO EXPERIENCE A PANIC ATTACK. HR ON TELE IS SUSTAINED ABOVE 125, PT VISIBLY QUIVERING. PT EDUCATED ON EFFECTS OF HIGH BLOOD SUGAR AND THE RISKS IF SHE CONTINUES TO EAT SUGAR. PT VERBALIZES UNDERSTANDING AND STATES SHE WILL TAKE THE RISK. PUDDING PROVIDED. PT VISIBLY RELAXES AT THIS TIME. HR CONTINUES TO BE SUSTAINED IN THE 120s. CALL LIGHT IN REACH, NO OTHER REQUESTS.
--- NOTE | 2024-11-17 18:27 | NUR ---
PT HR SUSTAINED 63-75 AT THIS TIME, PACED ON HER TELE. PT REMAINS IN RECLINER WITH BLE ELEVATED, NO SOB, NO ANXIETY, REPORTS SHE FEELS FINE.
--- NOTE | 2024-11-17 19:18 | NUR ---
RECEIVED REPORT FROM DAY SHIFT RN. PATIENT IS RESTING IN RECLINER WATCHING TV. PATIENT PROVIDED FRESH ICE WATER. PATIENT DENIES ANY FURTHER NEEDS. CALL LIGHT IN REACH.
--- NOTE | 2024-11-17 20:34 | NUR ---
PATIENT ASSISTED A SBA W/FWW. PATIENT ABLE TO COMPLETE ONE LAP AROUND UNIT. PATIENT IS NOW IN BED RESTING. PATIENTS VITALS TAKEN AND RECORDED. INTAKE AND OUTPUT RECORDED. PATIENT DENIES ANY PAIN, NAUSEA OR SOB. PATIENT DENIES ANY CHEST PAIN. PATIENTS DENIES THE NEED TO USE THE BR AT THIS TIME. PATIENTS INTAKE AND OUTPUT RECORDED. PATIENT ASSESMENT COMPLETED. PATIENTS BNS CHECKED AND SS GIVEN PER ORDER. PM MEDS GIVEN PER ORDER. PATIENT GIVEN PRN TUMS FOR C/O OF HEARTBURN. PATIENTS IV FLUSHED AND SL PER ORDER. PATIENT IS ON RA. PATIENT IS AAOX4. PATIENT PROVIDED SNACK AND FRESHB ICE WATER. PATIENT DENIES ANY FURTHER NEEDS. CALL LIGHT IN REACH.
--- NOTE | 2024-11-17 20:45 | NUR ---
ROUNDING. UPDATED MD ON PATIENT REQUESTING HER MICHELLE HUTTON MD TO PLACE ORDER.
--- NOTE | 2024-11-17 20:59 | NUR ---
PATIENT IS RESTING IN BED. PATIENTS SCHEDULED MEDS GIVEN PER ORDER. PATIENT DENIES ANY FURTHER NEEDS. CALL LIGHT IN REACH.
[2024-11-17] MEDS ORDERED: ARIPiprazole 10 MG TAB PO SCH (21:00)
[2024-11-17] MEDS ORDERED: INSULIN GLARGINE-YFGN 100 UNIT/ML ML SUB-Q SCH (21:00)
[2024-11-17] MEDS ORDERED: PROPRANOLOL HCL 10 MG TAB PO SCH (21:00)
[2024-11-17] MEDS ORDERED: PARoxetine HCL 20 MG TAB PO SCH (21:00)
[2024-11-17] MEDS ORDERED: ATORVASTATIN 40 MG TAB PO SCH (21:00)
--- NOTE | 2024-11-17 21:35 | EKG ---
[facility] [address] [place] [address] Signed Atrial-sensed ventricular-paced rhythm Abnormal ECG When compared with ECG of 16-NOV-2024 10:07, No significant change was found Confirmed by Aleah De La Torre MD () on 11/17/2024 9:35:04 PM Electronically Signed By: ALEAH DE LA TORRE MD 11/17/[id number] PATIENT NAME: BERNARDA ALARCON AIDE Electrocardiogram DATE OF : 55 PHYSICIAN: ALEAH DE LA TORRE MD REPORT #: [id number] REPORT IS CONFIDENTIAL AND NOT TO BE RELEASED WITHOUT AUTHORIZATION
--- NOTE | 2024-11-17 22:00 | NUR ---
PATIENT IS RESTING IN BED WITH EYES CLOSED, RR 19. CALL LIGHT IN REACH.
--- NOTE | 2024-11-17 22:40 | NUR ---
PATIENT ASSISTED TO THE BR A SBA W/FWW. PATIENT ABLE TO VOID. PATIENT IS BACK IN BED RESTING. PATIENT DENIES ANY FURTHER NEEDS. CALL LIGHT IN REACH.
[2024-11-18] VITALS (13 sets, daily range): BP systolic 111–155; BP diastolic 61–87
--- NOTE | 2024-11-18 00:20 | NUR ---
PATIENT IS RESTING IN BED WITH EYES CLOSED, RR 19. CALL LIGHT IN REACH.
--- NOTE | 2024-11-18 01:09 | NUR ---
PATIENT ASSISTED TO THE BR A SBA W/FWW. PATIENT ABLE TO VOID. PATIENT IS BACK IN BED RESTING. VITALS TAKEN AND RECORDED. INTAKE AND OUTPUT RECORDED. NO CHANGES IN NEURO. PATIENT DENIES ANY FURTHER NEEDS. CALL LIGHT IN REACH.
--- NOTE | 2024-11-18 02:28 | NUR ---
PATIENT IS RESTING IN BED WITH EYES CLOSED, RR 18. NAD NOTED. CALL LIGHT IN REACH.
--- NOTE | 2024-11-18 04:27 | NUR ---
PATIENT IS RESTING IN BED WITH EYES CLOSED, RR 15. CALL LIGHT IN REACH. TELE #4, PACED AND HR 73
--- NOTE | 2024-11-18 05:55 | NUR ---
PATIENT UP TO BR A SBA W/FWW. PATIENT ABLE TO VOID AND HAVE SMALL BM. PATIENT IS BACK IN BED RESTING. PATIENT REQUESTING BOWEL MEDICATION. PATIENT STATED "IT WAS SO DIFFICULT TO POOP, AND I THINK I WILL HAVE TO GO AGAIN". NIO PLACED PER PROTOCOL. PATIENT DENIES ANY PAIN, SOB, OR NAUSEA. NEURO CHECK COMPLETED AND NO CHANGES NOTED. PATIENT PROVIDED SNACK. PATIENT DENIES ANY FURTHER NEDS. CALL LIGHT IN REACH.
--- NOTE | 2024-11-18 07:49 | NUR ---
REPORT RECEIVED FROM NIGHT RN - FACILITY SPECIALIST IN ROOM TO OBTAIN CBG.
--- NOTE | 2024-11-18 08:09 | NUR ---
PT UP TO CHAIR FOR BREAKFAST, SBA WITH FWW. PT SHOWED EQUAL STRENGTH IN LOWER EXTREMETIES AND APPROPRIATE USE OF WALKER AND BODY MECHANICS. PT SELF ADMINISTERED INSULIN THIS AM, CORRECT TECHNIQUE DEMONSTRATED. BRANDON ENTERED FOR BOWEL CARE, PT STATES SHE HAD DIFFICULTY HAVING BM TODAY AND REQUESTS SENNA. CALL LIGHT IN REACH.
--- NOTE | 2024-11-18 08:48 | NUR ---
Board has been updated and call light has been placed within reach.
[2024-11-18] MEDS ORDERED: SENNOSIDES/DOCUSATE 1 EA TAB PO SCH (09:00)
--- NOTE | 2024-11-18 09:50 | NUR ---
ASSESSMENT COMPLETE - UPPER AND LOWER EXTREMITIY STRENGTH EQUAL, NO UNILATERAL DEFICIT NOTED. PT STEADY ON FEET WHEN AMBULATING AND REPORTS FEELING AT BASELINE. PRN TYLENOL ADMINISTERED FOR 6/10 LOWER BACK PAIN. CALL LIGHT IN REACH, PT DENIES FURTHER NEEDS.
--- NOTE | 2024-11-18 10:53 | NUR ---
PT AMBULATED FROM ROOM 119 TO THE FRONT ENTRANCE OF THE HOSPITAL AND BACK WITH FWW. NO ASSISTANCE NEEDED WITH THIS WALK. THEN PT UP TO CHAIR IN ROOM, CALL LIGHT WITHIN REACH.
[2024-11-18] MEDS ORDERED: INSULIN GLARGINE-YFGN 100 UNIT/ML ML SUB-Q ONE (11:15)
--- NOTE | 2024-11-18 12:20 | NUR ---
PT SELF ADMINISTERS INSULIN - BACK TO CHAIR AFTER WORKING WITH PHYSICAL THERAPY. PT ABLE TO WALK STAIRS AND TO LONG DISTANCE AMBULATION. REPORTS IMPROVED PAIN FROM TYLENOL EARLIER. DENIES FURTHER NEEDS. CALL ZACHARY IN REACH.
--- NOTE | 2024-11-18 13:07 | NUR ---
PT C/O NAUSEA AND HAD SMALL AMOUNT OF VOMET AT THIS TIME. MEDICATED WITH 4MG ZOFRAN SLOW IV PUSH. PT REMAINS UP IN THE CHAIR AND ATE MOST OF HER LUNCH.
--- NOTE | 2024-11-18 14:53 | NUR ---
PT SITTING ON EDGE OF BED VISITING WITH SOMEONE ON THE PHONE. DENIES NEEDS, CALL LIGHT IN REACH.
--- NOTE | 2024-11-18 17:02 | NUR ---
NOTIFIED OF PERSISTANT CBG ABOVE 300 DESPITE ESCALATING INSULIN DOSAGES.
[2024-11-18] MEDS ORDERED: INSULIN LISPRO 100 UNIT/ML ML SUB-Q SCH (17:45)
--- NOTE | 2024-11-18 19:26 | NUR ---
RECEIVED REPORT FROM DAY SHIFT RN. PATIENT IS RESTING IN BED WATCHING TV. PATIENT DENIES ANY NEEDS. CALL LIGHT IN REACH.
--- NOTE | 2024-11-18 20:56 | NUR ---
PATIENTS VITALS TAKEN AND RECORDED. INTAKE AND OUTPUT RECORDED. PATIENT DENIES ANY PAIN OR SOB. PATIENT IS ON RA. PATIENTS BS CHECKED AND SS GIVEN PER ORDER. PATIENTS PM MEDS GIVEN PER ORDER. PATIENT ASSESMENT COMPLETED. NO NEURO CHANGES NOTED FROM PREVIOUS SHIFT. PATIENTS IV FLUSHED AND SL PER ORDER. PATIENT ASSISTED INTO THE SHOWER. TELE ON STANDBY. ASSOCIATE PROJECT MANAGER REMAINS IN ROOM.
[2024-11-18] MEDS ORDERED: INSULIN GLARGINE-YFGN 100 UNIT/ML ML SUB-Q SCH (21:00)
--- NOTE | 2024-11-18 21:22 | NUR ---
PATIENT IS BACK IN BED RESTING FROM SHOWER. PATIENTS IV FLUSHED AND REDRESSED. PATIENT DENIES ANY PAIN OR SOB. PATIENT DENIES ANY FURTHER NEEDS. CALL LIGHT IN REACH.
--- NOTE | 2024-11-18 22:25 | NUR ---
ROUNDED ON PATIENT. PATIENT REPORTS BEING DIZZY, LIGHT HEADED AND EXHAUSTED. NO CHANGES IN NEURO EXAM. PATIENTS VITALS TAKEN AND RECORDED. PATIENTS BS TAKE AND IS NOTED TO BE 88. SNACK PROVIDED TO PATIENT. PATIENT SITTING IN BED EATING SNACK AND REPORTS STARTING TO FEEL BETTER. PATIENT IS AAOX4. PATIENT DENIES ANY CHEST PAIN. PATIENT GIVEN PRN MEDICATION FOR HEARTBURN. PATIENT DENIES ANY FURTHER NEEDS. CALL LIGHT IN REACH.
[2024-11-19] VITALS (11 sets, daily range): BP systolic 127–145; BP diastolic 56–79
--- NOTE | 2024-11-19 00:12 | NUR ---
PATIENT IS RESTING IN BED ON HER LEFT SIDE WITH EYE SCLOSED, RR 17. CALL LIGHT IN REACH NAD NOTED. TELE #4 AND HR NOTED TO BE 72.
--- NOTE | 2024-11-19 02:40 | NUR ---
PATIENTS IS RESTING IN BED. PATIENTS VITALS TAKEN AND RECORDED. INTAKE AND OUTPUT RECORDED. PATIENT DENIES ANY PAIN OR SOB. PATIENT EXPRESSES CONCERN FOR BLOOD SUGAR. PATIENT DENIES ANY S/SX OF HYPO/HYPERGLYCEMIA. PATIENT STATED "I AM JUST WORRIED". PRN BLOOD SUGAR COMPLETED AND IS NOTED TO BE 279. PATIENT DENIES ANY FURTHER NEEDS. CALL LIGHT IN REACH .
--- NOTE | 2024-11-19 03:26 | NUR ---
PATIENT IS RESTING IN BED WITH EYES CLOSED, RR 16. TELE #5 HR 72. CALL LIGHT IN REACH.
--- NOTE | 2024-11-19 04:25 | NUR ---
PATIENT IS RESTING IN BED ON RIGHT SIDE WITH EYES CLOSED, RR 16. TELE #4 HR 70. NAD NOTED. CALL LIGHT IN REACH.
--- NOTE | 2024-11-19 05:37 | NUR ---
PATIENT UP TO BR. PATIENT ABLE TO VOID AND HAVE BM. VITALS TAKEN AND RECORDED. INTAKE AND OUTPUT RECORDED. PATIENTS IV FLUSHED AND SL PER ORDER. PATIENT DENIES ANY PAIN OR SOB. PATIENT AMBULATED ONE LAP IN ROLON. PATIENT IS NOW IN RECLINER. COFFEE PROVIDED. PATIENT DENIES ANY FURTHER NEEDS. CALL LIGHT IN REACH.
--- NOTE | 2024-11-19 06:05 | NUR ---
PATIENT IS UP IN RECLINER ON PHONE. PATIENT DENIES ANY NEEDS. CALL LIGHT IN REACH.
--- NOTE | 2024-11-19 07:15 | NUR ---
PT AWAKE WATCHING TV AT TIME OF SHIFT REPORT DENIES NEEDS OF. FRESH H20 TO BEDSIDE CALL LIGHT IN REACH
--- NOTE | 2024-11-19 07:56 | NUR ---
PATIENT TO IMAGING VIA WHEELCHAIR FOR HEAD CT.
--- NOTE | 2024-11-19 08:00 | NUR ---
NOTES SENT TO [facility] TO REQUEST EDGARDO.
--- NOTE | 2024-11-19 09:01 | NUR ---
INTO SEE PATIENT. SAYS SHE IS FEELING ALOT BETTER. PATIENT CONCERNED ABOUT THERAPIES IF SHE IS STRONG ENOUGHT FOR OUTPATIENT OR HOME HEALTH. LET PT/OT KNOW. WILL CONTINUE TO FOLLOW FOR THERE RECOMMENDATION.
--- NOTE | 2024-11-19 09:28 | NUR ---
PT EATS 100% OF A SMALL BREAKFAST. 10 UNIT INSULIN (IN ADDITION TO SS) HELD DUE TO NOC REPORT OF SUGARS IN THE 80'S AND PT HAVING A VERY SMALL BREAKFAST. SS AND LONG ACTING ADMINISTERED MD NOTIFIED. PT UP WORKING WITH P/T O/T AT THIS TIME
--- NOTE | 2024-11-19 09:52 | NUR ---
UR CLINICAL REVIEW: 2 MN FOR VERSALUS-MEETS INPT CRITERIA FOR CVA MEDICARE OBS TO INPT 11/17/24 @ 1340 ORDER MATCHES REG NO AUTH REQUIRED PER MEDICARE GUIDELINES DISCHARGE TO HOME WHEN MEDICALLY STABLE. ANTICIPATE DISCHARGE IN 24-48 HOURS.
--- NOTE | 2024-11-19 10:02 | NUR ---
PATIENT SITTING UP IN CHAIR AT THIS TIME. VITALS AND I&O'S DONE AND CHARTED. CALL LIGHT IN REACH. NO FURTHER NEEDS AT THIS TIME.
--- NOTE | 2024-11-19 10:38 | NUR ---
PT AGREES WORKING WITH P/T WAS BOTH GOOD AND HELPFUL. STATES SHE WANTS TO BE TRANSFERRED TO REHAB TO GAIN STRENGTH BEFORE RETURNING HOME BECAUSE SHE LIVES UPSTAIRS AND CONTINUES TO HAVE LEFT SIDE WEAKNESS AND WORRIES FOR HER SAFETY AND ABILITY TO FUNCTION. PT SITTING UP IN THE CHAIR IN HER HOME CLOTHES NOW UPBEAT AND TALKATIVE. DENIES NEEDS. CALL LIGHT IN REACH
--- NOTE | 2024-11-19 10:40 | NUR ---
CHART FAXED TO [facility]. CALLED . [facility] AWAITING FOR THEM TO RECIEVE CHART.
--- NOTE | 2024-11-19 11:19 | NUR ---
Upon entering the room I find Cindy up in her wheelchair, call light is within reach and Cindy has just turned on the call light. It is answered, requests are met (close the blinds, provide a soda). IMM letter is explained to Cindy who expresses interest in going to inpt rehab. Cindy does agree to discharge when plan is made, IMM letter is signed, and a signed copy of the IMM letter is provided to Cindy. Cindy states that she is aware that her chart has been sent for inpt rehab, and the facility will make the determination about her inpt rehab care. Cindy also requests someone to speak to her regarding the financial responsibilities of her bill while here in the hospital. A call has been made, and someone from [facility] will come down today and talk to Cindy regarding her financial obligations with this hospitalization. No further questions stated at this time.
--- NOTE | 2024-11-19 12:12 | NUR ---
PT IS UP IN THE CHAIR WITH NOON MEAL AGREES SHE HAS ALL NEEDED ITEMS. PT INQUIRES ABOUT SHOP CLERK, NOTIFIED SHE WILL BE IN HOUSE TOMORROW
--- NOTE | 2024-11-19 13:34 | NUR ---
PT EATS MOST OF NOON MEAL. SITTING ON EDGE OF THE BED AT THIS TIME TALKING WITH DR DE LA TORRE. SHE IS INTERACTIVE AND ASKING QUESTIONS R/T HER HEALTH AND DC PLANS.
--- NOTE | 2024-11-19 14:10 | NUR ---
PATIENT GIVEN 650MG OF TYLENOL FOR 5/10 HEADACHE.
--- NOTE | 2024-11-19 14:14 | NUR ---
PATIENT SITTING UP ON EDGE OF BED AT THIS TIME. VITALS AND I&O'S DONE AND CHARTED. CALL LIGHT IN REACH. NO FURTHER NEEDS AT THIS TIME.
--- NOTE | 2024-11-19 14:38 | NUR ---
RUTHANN FROM [facility] CALLED AWAITING DR. BURT. WILL HAVE AN ANSWER TODAY OR FIRST THING IN THE MORNING.
--- NOTE | 2024-11-19 14:50 | NUR ---
PT NOT AVAILABLE FOR VISIT. PROVIDED PRAYER.
--- NOTE | 2024-11-19 14:54 | NUR ---
PATIENT HAS 1 X EMESIS FOR 300 ML. FOOD PARTICLES PRESENT. DARK BROWN COLORED. PATIENT REQUEST ZOFRAN AND TUMS. PATIENT MEDICATED. PATIENT REMAINS UP IN CHAIR IN ROOM AND DENIES OTHER NEEDS.
--- NOTE | 2024-11-19 15:01 | NUR ---
PT REPORTS SHE FEELS MUCH BETTER NOW. SHE IS UP IN THE CHAIR STATES HER HEARTBURN IS GONE AND HER STOMACHE IS SETTLED. FRESH H20 TO CHAIRSIDE PT DENIES OTHER NEEDS OF
--- NOTE | 2024-11-19 15:59 | NUR ---
Stroke rounds: Reviewed [facility] stroke symtpoms and risk factors. Patient explained her plains to discharge to a stroke rehab. She further explained that at first she was anxious about her symtpoms, but she is no longer. She stated,"I recovered from my last stroke and I will recover from this one." Stroke education materials left with patient and asked her to call me if she has any questions.
--- NOTE | 2024-11-19 16:01 | NUR ---
RUTHANN FROM [facility] CALLED SAID THAT DR. ROBERTSON WOULD LIKE TO SEE THE RESULTED ECHO BEFORE TAKING THE PATIENT. ALSO WOULD LIKE DIABETIC SUPPLIES ORDERED. CASE MANAGEMENT WILL FOLLOW UP IN THE MORNING WITH THEM
--- NOTE | 2024-11-19 18:26 | NUR ---
PATIENT SITTING UP IN CHAIR AT THIS TIME. VITALS AND I&O'S DONE AND CHARTED. CALL LIGHT IN REACH. NO FURTHER NEEDS AT THIS TIME.
--- NOTE | 2024-11-19 18:37 | NUR ---
PT AMBULATING THE ROLON INDEPENDANTLY WITH HER WALKER THEN RETURNS TO RECLINER. DENIES NEED FROM THIS EVENT SET UP SPECIALIST
--- NOTE | 2024-11-19 20:00 | NUR ---
PATIENT CALLED ASKING FOR JOEL CRACKERS AND PEANUT BUTTER. PRIMARY RN NOTIFIED. BLOOD SUGAR CHECK DONE BEFORE SNACKS. 2 [facility] GOWN PROVIDED PER PATIENT'S REQUEST.
--- NOTE | 2024-11-19 20:45 | NUR ---
Pt awake, alert and oriented. stated "I's seeing people", no ther description given when asked. Denies hearing voices or self harm ideation. flat affect. Sitting up in chair, walked to BRP, voided, back to bed, sat on bed, cooperative with vitals and assessments. CBG 290, declines to have SSI 9 units coverage, took Lantus Insulin sc she did her own care. Takes abilify and paxil. then she went for a walk around up and down nursing station. by self with FWW. denies need for tylenol or c/o n/v upset stomach at this time
--- NOTE | 2024-11-19 21:16 | NUR ---
PT UTILIZES CALL LIGHT, REPORTS HEARTBURN. PRN ADMINISTERED. SEE EMAR. PT DENIES FURTHER NEEDS. SITTING AT THE EDGE OF BED. CALL LIGHT IN REACH.
--- NOTE | 2024-11-19 21:45 | NUR ---
Dr Powers notified of pts refusing SSI of 9 units per CBG 290. and had refused her Lantus, after murch reassurane and talking to her she accepted to take her Lantus Insulin. no new orders. "just document it"
--- NOTE | 2024-11-20 01:17 | NUR ---
RESTING, ON ROOM AIR, EYES CLOSED, NO S/SX DISTRESS, TELE#[address] PACED RHYTHM.
[2024-11-20 01:41] VITALS: BP 138/80
[2024-11-20 01:44] VITALS: BP 138/80
--- NOTE | 2024-11-20 01:46 | NUR ---
UP TO BRP, VOIDED, , BACK TO BED TOLERATED WELL, 1PSB/FWW. SITTING EDGE OF BED NO C/O CP, TELE#[address], PACED RHYTHM. EDEMA TO LE, ENCOURAGED TO ELEVATED, WARM BLANKETS GIVEN ONREQUESTS
--- NOTE | 2024-11-20 04:27 | NUR ---
UP, WALKING UP AND DOWN TO LOWER HALLWAY SEVERAL TIMES AND JENNA USING FWW. TOLERATING WELL, TELE#4 PACED
[2024-11-20 05:48] VITALS: BP 118/88
--- NOTE | 2024-11-20 06:26 | NUR ---
AMBULATING HALLWAYS, SEVERAL TIMES AGAIN, TOLERATING WELL, NO C/O SOB OR CP. TELE#[address], PACED RHYTHM. BACK TO ROOM, SITTING UP IN BED
--- NOTE | 2024-11-20 07:44 | NUR ---
PT WALKING THE HALLS INDEPENTANTLY AT TIME OF SHIFT REPORT. SHE APPEARS STEADY ON HER FEET AND AMBULATES THE FULL LENGTH OF THE ROLON. RESTING IN BED NOW REPORTS GOOD SLEEP LAST NIGHT. STATES SHE DOESN'T THINK SHE WILL QUALIFY FOR REHAB BUT BELIEVES SHE WILL BE OKAY AT HOME AND HAS AT LEAST 2 PEOPLE WHO CAN HELP HER FOR TAKING OUT GARBAGE AND THINGS REQUIRING USE OF THE STAIRS. PT AGREES SHE IS READY FOR BREAKFAST.
--- NOTE | 2024-11-20 08:32 | NUR ---
PATIENT IND. IN ROOM AND SITTING IN CHAIR AT THIS TIME FOR BREAKFAST. CALL LIGHT IN REACH. NO FURTHER NEEDS AT THIS TIME.
--- NOTE | 2024-11-20 08:59 | NUR ---
MORNING MEAL WELL TOLERATED PT ADMINISTERS INSULIN HERSELF. STATES SHE REFUSED LONG ACTING DOSE LAST NIGHT DUE TO LOW SUGAR IN THE 80'S THE NIGHT BEFORE. PT CONTINUES UP IN THE CHAIR AT THIS TIME DENIES NEEDS OF
[2024-11-20] MEDS ORDERED: INSULIN GLARGINE-YFGN 100 UNIT/ML ML SUB-Q SCH (09:00)
--- NOTE | 2024-11-20 09:15 | NUR ---
ECHO FAXED TO [facility] IN REHAB.
[2024-11-20 09:31] VITALS: BP 118/88
[2024-11-20 09:54] VITALS: BP 139/71
--- NOTE | 2024-11-20 09:59 | NUR ---
PATIENT IND. IN ROOM. PATIENT IN BED RESTING AT THIS TIME. VITALS AND I&O'S DONE AND CHARTED. PATIENT WANTS TO SHOWER LATER, WILL CHECK BACK IN. CALL LIGHT IN REACH. NO FURTHER NEEDS AT THIS TIME.
--- NOTE | 2024-11-20 10:31 | NUR ---
CONNECTED WITH PT WHILE AMBULATING IN ROLON. PT STATED NO NEEDS OR CONCERNS, EXPRESSED HOPEFUL ANTICIPATION OF TIMELY DISCHARGE. SUPERVISOR DIE CASTING PROVIDED SUPPORTIVE PRESENCE, HOSPITALITY, PRAYER. PT EXPRESSED GRATITUDE.
--- NOTE | 2024-11-20 10:49 | NUR ---
PT REPSOSITIONED ORAL CARE COMPLETE
--- NOTE | 2024-11-20 10:51 | NUR ---
SPOKE WITH RUTHANN AT [facility] IN [place]. THEY CAN ACCEPT PATIENT AT 2:[address] BLOUNT NOTIFIED. PATIENT NOTIFIED. STATES SHE WILL NEED RIDE TO FACILITY. WILL SET UP TAXI RIDE.
--- NOTE | 2024-11-20 11:36 | NUR ---
DR BLOUNT IN TO SEE AND ASSESS PT ADDRESSES HER CONCERNS. PT DENIES FURTHER QUESTIONS
[2024-11-20 11:59] LABS: ANION GAP 11.3 (7-21); BUN/CREATININE RATIO 22.53 (6.0-28.6); CALCIUM 9.5 mg/dL (8.5-10.1); CREATININE, SERUM 0.71 mg/dL (0.55-1.02); MAGNESIUM 1.8 mg/dL (1.8-2.4); POTASSIUM 4.3 mmol/L (3.5-5.1)
[2024-11-20] MEDS ORDERED: INSULIN GL100 UNIT/1 SUB-Q (12:46)
[2024-11-20] MEDS ORDERED: BLOOD GLUCOSE1 EAC1 MISC ×2 (12:48→13:13)
[2024-11-20] MEDS ORDERED: BLOOD GLUCOSE1 EACH MISC (12:50)
[2024-11-20] MEDS ORDERED: [UNRECOGNIZED DRUG - OTHER] IM (12:51)
[2024-11-20] MEDS ORDERED: [UNRECOGNIZED DRUG - SUPPLY] ID (12:52)
[2024-11-20] MEDS ORDERED: VAZALORE81 MG PO (12:58)
[2024-11-20] MEDS ORDERED: LIPITOR40 MG PO (12:58)
--- NOTE | 2024-11-20 12:59 | NUR ---
REPORT CALLED TO RECEIVING RN AT [facility] [place] ALL QUESTIONS ANSWERED. PT TOLERATES NOON MEAL NO C/O NAUSEA OR DISCOMFORT. CONTINUES UP IN THE CHAIR DRESSED AND READY FOR TRANSPORT.
[2024-11-20 13:13] VITALS: BP 144/71
[2024-11-20] MEDS ORDERED: ADMELOG100 UNIT/1 SUB-Q (13:13)
[2024-11-20] MEDS ORDERED: INSULIN SYRING1 EA47 MISC (13:13)
--- NOTE | 2024-11-20 13:49 | NUR ---
SENT NOTES TO DR. DOMINGUEZ REGARDING NEED FOR CARDIOLOGY CONSULT
== END 2024-11-20 13:25 | disposition home or self-care (01) | DRG 69 ==
LOC: ED 09:18 → MS 09:20
PROVIDERS: Internal Medicine; Student in an Organized Health Care Education/Training Program; ADMIT Family Medicine; ATTEND Family Medicine
DX: G45.9 Transient cerebral ischemic attack, unspecified (principal); G81.92 Hemiplegia, unspecified affecting left dominant side; E11.65 Type 2 diabetes mellitus with hyperglycemia; J32.9 Chronic sinusitis, unspecified; K21.9 Gastro-esophageal reflux disease without esophagitis; I48.91 Unspecified atrial fibrillation; E03.9 Hypothyroidism, unspecified; E83.42 Hypomagnesemia; I10 Essential (primary) hypertension; Z88.2 Allergy status to sulfonamides; Z88.8 Allergy status to other drugs, medicaments and biological substances; Z86.73 Personal history of transient ischemic attack (TIA), and cerebral infarction without residual deficits; Z90.49 Acquired absence of other specified parts of digestive tract; Z98.890 Other specified postprocedural states; Z98.84 Bariatric surgery status; Z98.1 Arthrodesis status; Z90.12 Acquired absence of left breast and nipple; Z79.899 Other long term (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; Z79.84 Long term (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 of 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; R07.9 Chest pain, unspecified
CPT/HCPCS: 36415; 70450; 70496; 70498; 80048; 80053; 80061; 83036; 83735; 84100; 84484; 85025; 85610; 85730; 92523; 93005; 93010; 93306; 94640; 94760; 94799; 97161; 97165; 97530; 97535; 99285-25; A9270; G0378; J1815; J2405; Q3014; Q9967

== ENCOUNTER 2024-12-08 20:11 | Inpatient (IN) | payer MEDICARE ==
[~2024-12-08] VITALS: Ht 170.2 cm; Wt 109.8 kg
[~2024-12-08 20:11] MED LIST changes: +ADMELOG100 UNIT/1 SUB-Q; +BLOOD GLUCOSE1 EAC1 MISC; +BLOOD GLUCOSE1 EACH MISC; +INSULIN GL100 UNIT/1 SUB-Q; +INSULIN SYRING1 EA47 MISC; +LIPITOR40 MG PO; +PULMICORT0.5 MG/2 M INH; +VAZALORE81 MG PO; +[UNRECOGNIZED DRUG - OTHER] IM; +[UNRECOGNIZED DRUG - SUPPLY] ID
[2024-12-08] MEDS ORDERED: IBLOOD GLUCOSE TEST STRIP 1 EA TEST XX ONE (20:30)
[2024-12-08 20:53] LABS: EOSINOPHILS 3.1 % (0-6); HEMATOCRIT 36.6 % (35.0-50.0); HEMOGLOBIN 12.3 g/dL (12.0-18.0); LYMPHOCYTES 45.5 % (24-44); MCH 27.6 (27-36); MCHC 33.7 g/dl (30-36); MCV 81.9 fl (81-99); MONOCYTES 6.7 % (0-12); NEUTROPHILS 43.7 % (39-80); PLATELET COUNT 188 K/uL (140-440); RBC 4.47 M/ul (4.3-5.7); RDW 15.9 (10.5-15.0)
[2024-12-08 21:03] LABS: PARTIAL THROMBOPLASTIN TIME 24.9 Sec (22.9-41.3)
[2024-12-08 21:04] LABS: INR 0.98 (0.80-1.30); PROTIME 12.9 Sec (11.2-14.2)
[2024-12-08] MEDS ORDERED: PANTOPRAZOLE SO40 MG PO (21:12)
[2024-12-08 21:13] LABS: ALBUMIN 3.1 g/dL (3.4-5.0); ALBUMIN/GLOBULIN RATIO 1.07 (1.1-2.4); ANION GAP 9.9 (7-21); BILIRUBIN, TOTAL 0.3 mg/dL (0.2-1.0); BUN/CREATININE RATIO 18.18 (6.0-28.6); CALCIUM 8.9 mg/dL (8.5-10.1); CREATININE, SERUM 0.55 mg/dL (0.55-1.02); POTASSIUM 3.9 mmol/L (3.5-5.1)
[2024-12-08 21:34] LABS: BILIRUBIN, URINE NEGATIVE (negative); BLOOD/HGB, URINE NEGATIVE (Negative); KETONE, URINE NEGATIVE (Negative); LEUK ESTERASE, URINE SMALL (negative); NITRITE, URINE NEGATIVE (negative)
[2024-12-08] MEDS ORDERED: ARIPiprazole 10 MG TAB PO SCH (21:42)
[2024-12-08] MEDS ORDERED: OLANZapine 10 MG TAB PO SCH (21:43)
[2024-12-08] MEDS ORDERED: PARoxetine HCL 20 MG TAB PO SCH (21:43)
[2024-12-08 21:45] LABS: EPITHELIAL CELLS, URINE SQUAMOUS 1+ /lpf (0-1+)
[2024-12-08] MEDS ORDERED: ondansetron HCL 4 MG/2 ML VIAL IV PRN (21:45)
[2024-12-08] MEDS ORDERED: ACETAMINOPHEN 325 MG TAB PO PRN (21:45)
[2024-12-08 21:46] LABS: BACTERIA, URINE 1+ /hpf (negative); CASTS, URINE NONE SEEN \\lpf; COLLECTION TYPE, URINE CLEAN CATCH; CRYSTALS, URINE NONE SEEN (0-1+); REFLEX CULTURE, URINE Yes (No)
[2024-12-08 21:55] LABS: AMPHETAMINES, URINE NEGATIVE (NEGATIVE); BARBITURATES, URINE NEGATIVE (NEGATIVE); BENZODIAZEPINE, URINE NEGATIVE (NEGATIVE); BUPRENORPHINE, URINE NEGATIVE (NEGATIVE); CANNABINOID, URINE NEGATIVE (NEGATIVE); COCAINE, URINE NEGATIVE (NEGATIVE); ECSTASY, URINE NEGATIVE (NEGATIVE); FENTANYL, URINE NEGATIVE (NEGATIVE); METHADONE, URINE NEGATIVE (NEGATIVE); OPIATES, URINE NEGATIVE (NEGATIVE); OXYCODONE, URINE NEGATIVE (NEGATIVE); PHENCYCLIDINE, URINE NEGATIVE (NEGATIVE)
--- NOTE | 2024-12-08 22:09 | NUR ---
BEDSIDE REPORT RECEIVED FROM ED RN PAULETTE. pt ARRIVED TO MS FLOOR AT THIS TIME, TRANSFER SBA FROM ED STRETCHER TO BED. pt A/O, BED ALARM ON FOR SAFETY. pt PASSED BEDSIDE SWALLOW EVAL-WATER AND SF PUDDING PROVIDED. IV SITE WNL, FLUSHES AND SALINE LOCKED. POC DISCUSSED, pt ASKING FOR PRN BENADRYL D/T ITCHING ON ABD-WILL UPDATE PRIMARY DMITRIY PARIS. BRUISING NOTED TO ABD PER pt, R/T LOVENIX INJECTIONS AND FAINT REDDNESS NOTED TO THIGHS/ABD, R/T INSULIN INJECTIONS PER pt. TELE IN PLACE PER ORDERS, CALL LIGHT IN REACH.
[2024-12-08 22:14] VITALS: BP 159/69
[2024-12-08] MEDS ORDERED: ALBUTEROL SULFATE 0.083% 3 ML VIAL INH PRN (22:45)
--- NOTE | 2024-12-08 23:47 | NUR ---
REPORT GIVEN TO PRIMARY RN [place] AT THIS TIME, QUESTIONS ANSWERED.
[2024-12-09] VITALS (10 sets, daily range): BP systolic 117–148; BP diastolic 53–75
--- NOTE | 2024-12-09 00:02 | NUR ---
PATIENT CALLED COMPLAINING OF LEFT ARM AND LEG PAIN ASKING FOR TYLENOL. RN AWARE.
--- NOTE | 2024-12-09 00:04 | NUR ---
REPORT RECEIVED FROM DMITRIY NAILS. ROUNDED ON pt. pt REQUESTS PRN BENADRYL FOR ITCHING. PHONE CALL TO MD, TELEPHONE ORDER RECEIVED AND REPEATED BACK TO VERIFY. EMAR UPDATED.
[2024-12-09] MEDS ORDERED: diphenhydrAMINE HCL 25 MG CAP PO PRN (00:15)
--- NOTE | 2024-12-09 00:54 | NUR ---
pt AWAKE, NEURO CHECK AND ADMISSION ASSESSMENT COMPLETE. pt ALERT AND ORIENTED TO ALL. COMPLAINS OF WEAKNESS IN LEFT ARM, LEFT LEG AND N/T IN BOTH EXTREMITIES. INITIALLY LEG STRENGTH EQUAL BLE, LEFT LEG WEAKENS pt INSTRUCTED TO PERFORM TASK. VSS. pt DENIES TOILETING NEEDS. ENSURE PROVIDED PER REQUEST. CALL LIGHT IN REACH. BED ALARM ON.
--- NOTE | 2024-12-09 01:26 | NUR ---
IN ROOM TO FIX TELE LEAD. pt RESTING IN BED WITH EYES CLOSED, AWAKENS TO VOICE. DENIES ANY NEEDS.
--- NOTE | 2024-12-09 02:00 | NUR ---
CALL LIGHT ANSWERED. WALKER BROUGHT TO ROOM FOR pt. HEAD OF BUSINESS DEVELOPMENT ASSISTS pt TO RESTROOM SBA FWW. pt INDEPENDENTLY GETS SELF OUT OF BED AND STANDS WNL, GAIT SLOW, STEADY WITH WALKER. HEAD OF BUSINESS DEVELOPMENT REMAINS IN ROOM WITH pt.
--- NOTE | 2024-12-09 02:11 | NUR ---
PATIENT CALLED TO USE THE BATHROOM. PT WAS ABLE TO QUICKLY SWING BOTH LEGS UP AND OUT OF BED. SHE PLACED BOTH SOCKS ON HERSELF. PROVIDED PATIENT WITH A WALKER TO WALK TO THE BATHROOM. PT APPEARED TO DRAG HER LEFT FOOT ON THE GROUND IF SHE WERE UNABLE TO LIFT IT LIKE PREVIOUSLY WITNESSED WHEN GETTING OUT OF BED. PATIENT HAD NO DIFFICULTY WIPING AND DRESSING. SHE WALKED BACK TO BED WITH THE WALKER WHILE DRAGGING LEFT FOOT. WHEN SEATED SHE QUICKLY LIFTED BOTH LEGS INTO BED WITH GOOD COORDINATION AND MINIMAL EFFORT. SHE LIFTED AND BROUGHT EACH FOOT TO HER LAP TO REMOVE SOCKS WITH NO DIFFICULTY OBSERVED. PT RESTING IN BED NOW. CALL LIGHT IN REACH. DENIES NEEDS AT THIS TIME.
--- NOTE | 2024-12-09 03:30 | NUR ---
ROUNDED ON pt. RESTING IN BED ON LEFT SIDE, BREATHING EQUAL AND UNLABORED. HR 65 ON TELE. NO DISTRESS NOTED.
--- NOTE | 2024-12-09 04:24 | NUR ---
PATIENT CALLED TO USE THE BATHROOM. SHE WALKED TO THE BATHROOM WITH THE WALKER WITH NO ASSISTANCE. SHE WAS ABLE TO LIFT BOTH LEGS IN AND OUT OF BED WITH NO OBSERVED DIFFICULTY. PT BACK IN BED. CALL LIGHT IN REACH. PT DENIES NEEDS AT THIS TIME.
[2024-12-09 05:25] LABS: BASOPHILS 0.9 % (0-2); HEMATOCRIT 35.6 % (35.0-50.0); HEMOGLOBIN 12.1 g/dL (12.0-18.0); LYMPHOCYTES 42.9 % (24-44); MCH 27.6 (27-36); MCHC 33.9 g/dl (30-36); MCV 81.4 fl (81-99); MONOCYTES 6.3 % (0-12); NEUTROPHILS 46.9 % (39-80); PLATELET COUNT 189 K/uL (140-440); RBC 4.37 M/ul (4.3-5.7); RDW 15.9 (10.5-15.0)
--- NOTE | 2024-12-09 05:25 | NUR ---
CALL LIGHT ANSWERED, pt COMPLAINS OF FEELING "DIZZY". RESTING IN BED, HOB LOWERED. VS COMPLETE, STABLE. CBG 163. CRIMINAL INVESTIGATOR NOW IN ROOM. pt DENIES ANY NEEDS. INSTRUCTED NOT TO GET OUT OF BED WITHOUT ASSISTANCE OR IF FEELING DIZZY. pt VERBALIZES UNDERSTANDING. NEURO CHECK COMPLETE, UNCHANGED FROM START OF SHIFT.
[2024-12-09 05:45] LABS: ANION GAP 9.3 (7-21); BILIRUBIN, TOTAL 0.4 mg/dL (0.2-1.0); BUN/CREATININE RATIO 30.43 (6.0-28.6); CALCIUM 9.1 mg/dL (8.5-10.1); CREATININE, SERUM 0.46 mg/dL (0.55-1.02); POTASSIUM 4.3 mmol/L (3.5-5.1)
--- NOTE | 2024-12-09 05:55 | NUR ---
CALL LIGHT ANSWERED. pt COMPLAINS OF SOB. SPO2 99% ON RA. LUNG SOUNDS CLEAR THOUGHOUT ALL LOBES. pt REQUESTS PRN BREATHING TREATMENT. RT TO FLOOR TO ADMINISTER.
[2024-12-09] MEDS ORDERED: Insulin Regular, Human 100 UNIT/ML ML SUB-Q SCH ×2 (07:00→08:00)
--- NOTE | 2024-12-09 07:16 | NUR ---
VERBAL REPORT RECEIVED FROM DMITRIY PARIS. PT RESTS IN BED WITH EYE CLOSED RESP EVEN AND UNLABORED.
--- NOTE | 2024-12-09 07:40 | NUR ---
PT CALLS, REQUEST BATHROOM. PT UP TO TOILET WITH SBA AND FWW, TOLERATES ACTIVITY WELL.
[2024-12-09] MEDS ORDERED: ASPIRIN 81 MG CHEW PO SCH (08:00)
[2024-12-09] MEDS ORDERED: IBLOOD GLUCOSE TEST STRIP 1 EA TEST VI SCH ×2 (08:00→12:00)
[2024-12-09] MEDS ORDERED: ALBUTEROL/IPRATROPIUM 3 ML NEB INH SCH (08:00)
[2024-12-09] MEDS ORDERED: BUDESONIDE 0.5 MG/2 ML VIAL INH SCH (08:00)
[2024-12-09] MEDS ORDERED: metFORMIN HCL 500 MG TAB PO SCH (08:00)
[2024-12-09] MEDS ORDERED: IPRATROPIUM BROMIDE 2.5 ML VIAL INH SCH (08:00)
--- NOTE | 2024-12-09 08:41 | NUR ---
Board has been updated and call light has been placed within reach
[2024-12-09] MEDS ORDERED: PROPRANOLOL HCL 10 MG TAB PO SCH ×3 (09:00→22:01)
[2024-12-09] MEDS ORDERED: PANTOPRAZOLE SODIUM 40 MG TABEC PO SCH ×2 (09:00→10:18)
[2024-12-09] MEDS ORDERED: CEFTRIAXONE/SODIUM CHLORIDE 2 GM/100 ML PIGGYBACK IV SCH (09:00)
[2024-12-09] MEDS ORDERED: IBLOOD GLUCOSE TEST STRIP 1 EA TEST XX PRN (10:15)
[2024-12-09] MEDS ORDERED: GLUCAGON,HUMAN RECOMBINANT 1 MG/ML VIAL SUB-Q PRN (10:15)
[2024-12-09] MEDS ORDERED: DEXTROSE 5% 1,000 ML IV PRN (10:15)
[2024-12-09] MEDS ORDERED: DEXTROSE 50% 50 ML SYR IV PRN ×2 (10:15)
[2024-12-09] MEDS ORDERED: bisacodyL 10 MG SUPP PR PRN (10:15)
[2024-12-09] MEDS ORDERED: ondansetron HCL 4 MG/2 ML VIAL IV PRN (10:15)
[2024-12-09] MEDS ORDERED: ACETAMINOPHEN 325 MG TAB PO PRN (10:15)
[2024-12-09] MEDS ORDERED: ARIPiprazole 10 MG TAB PO SCH ×2 (10:22→21:00)
[2024-12-09] MEDS ORDERED: TRAZODONE HCL 50 MG TAB PO PRN (10:30)
--- NOTE | 2024-12-09 10:34 | NUR ---
UPON INITIATION OF SCD'S PT REFUSES, STATES, "I WILL NOT USE THOSE." DISCUSSED THE RISKS OF NOT USING SCD'S, PT STATES, "I KNOW, I PROMISE WILL MOVE MY LEGS." FURTHER EDUCATION PROVIDED ON VTE RISK, PT CONTINUES TO REFUSE SCD'S. DR. BLOUNT NOTIFIED.
--- NOTE | 2024-12-09 10:53 | NUR ---
PT UP TO TOILET WITH SBA AND FWW, TOLERATES ACTIVITY WELL.
--- NOTE | 2024-12-09 11:24 | NUR ---
PT AMBULATES IN HALLWAY WITH PHYSICAL THERAPY.
--- NOTE | 2024-12-09 11:35 | EKG ---
[facility] [address] [facility] [place] [address] Signed AV dual-paced rhythm Abnormal ECG When compared with ECG of 16-NOV-2024 21:23, Vent. rate has decreased BY 11 BPM Confirmed by Richard Blount DO ([id number]) on 12/09/2024 11:35:44 AM Electronically Signed By: RICHARD BLOUNT DO 12/09/24 1135 PATIENT NAME: JENNIJONN BRADLEYMALLORIE NOBLE Electrocardiogram DATE OF : 55 PHYSICIAN: RICHARD BLOUNT DO REPORT #: [id number] REPORT IS CONFIDENTIAL AND NOT TO BE RELEASED WITHOUT AUTHORIZATION
[2024-12-09] MEDS ORDERED: INSULIN LISPRO 100 UNIT/ML ML SUB-Q SCH (12:00)
[2024-12-09] MEDS ORDERED: PHARMACY RENAL DOSE ADJUSTMENT 1 DOSE MISC PO SCH (12:00)
[2024-12-09] MEDS ORDERED: HYDROCORTISO453.6 GM TOP (13:40)
[2024-12-09] MEDS ORDERED: ATORVASTATIN CA80 MG PO (13:42)
--- NOTE | 2024-12-09 16:09 | NUR ---
PT RESTS IN RECLINER, AWAKE AND ALERT, CALL LIGHT IN REACH. NEURO CHECK COMPLETE, NO CHANGES FROM AM ASSESSMENT.
--- NOTE | 2024-12-09 17:47 | NUR ---
IMAGING STAFF IN ROOM WITH PT PERFORMING ECHO PROCEDURE.
[2024-12-09] MEDS ORDERED: PARoxetine HCL 20 MG TAB PO SCH (21:00)
[2024-12-09] MEDS ORDERED: MELATONIN 3 MG TAB PO PRN (21:00)
[2024-12-09] MEDS ORDERED: OLANZapine 10 MG TAB PO SCH ×2 (21:00→21:59)
[2024-12-09] MEDS ORDERED: OLANZapine 10 MG TAB PO ONE (21:00)
[2024-12-09] MEDS ORDERED: INSULIN GLARGINE-YFGN 100 UNIT/ML ML SUB-Q SCH ×2 (21:00)
--- NOTE | 2024-12-09 21:21 | NUR ---
Used call light, "I donot want to walk to the BR, i have an UTI and I already peed on the pad". Up to BSC, voided very large amount of clear urine 2400cc. Back to bed, ointment to gluteal area applied due to redness. no other requests or c/o
--- NOTE | 2024-12-09 22:01 | NUR ---
MARCELLE from Dr. Harrison for olanzapine 10mg po at hs and to change current propanolol daily dose to BID. Orders updated in emar at this time.
--- NOTE | 2024-12-09 22:48 | NUR ---
PATIENT CALLED ASKING FOR SNACKS LIKE PUDDING AND JOEL CRACKERS. PROVIDED. NO OTHER NEEDS AT THIS TIME.
[2024-12-09] MEDS ORDERED: FLUTICASONE PROPIONATE 50 MCG BTL NAS PRN (23:45)
[2024-12-10] VITALS (7 sets, daily range): BP systolic 126–152; BP diastolic 60–74
--- NOTE | 2024-12-10 02:01 | NUR ---
ASSUMED CARE, UPDATE WHITE BOARD, PT IN BED WITH CALL LIGHT DENIES NEEDS.
[2024-12-10 05:55] LABS: BASOPHILS 0.9 % (0-2); EOSINOPHILS 4.4 % (0-6); HEMATOCRIT 37.9 % (35.0-50.0); HEMOGLOBIN 12.5 g/dL (12.0-18.0); LYMPHOCYTES 43.2 % (24-44); MCH 27.1 (27-36); MCV 82.2 fl (81-99); MONOCYTES 7.6 % (0-12); NEUTROPHILS 43.9 % (39-80); PLATELET COUNT 174 K/uL (140-440); RBC 4.61 M/ul (4.3-5.7); RDW 15.7 (10.5-15.0)
[2024-12-10 05:58] LABS: BUN/CREATININE RATIO 22.41 (6.0-28.6); CALCIUM 9.2 mg/dL (8.5-10.1); CREATININE, SERUM 0.58 mg/dL (0.55-1.02); MAGNESIUM 1.6 mg/dL (1.8-2.4)
--- NOTE | 2024-12-10 07:12 | NUR ---
VERBAL REPORT RECEIVED FROM MADELEINE Patricio RN. PT RESTS IN BED WITH EYES CLOSED, RESP EVEN AND UNLABORED.
[2024-12-10] MEDS ORDERED: MAGNESIUM SULFATE 2 GM/50 ML BAG IV SCH (07:30)
[2024-12-10] MEDS ORDERED: ASPIRIN 81 MG CHEW PO SCH (08:00)
--- NOTE | 2024-12-10 08:08 | NUR ---
PATIENT IN BED AT THIS TIME. INFORMATION SYSTEMS PROJECT MANAGER WENT INTO PATIENTS ROOM FOR HOURLY ROUNDS, INFORMATION SYSTEMS PROJECT MANAGER ASSISTED PATIENT TO BATHROOM AND THEN ASSISTED PATIENT TO CHAIR. CALL LIGHT WITHIN REACH, NO FURTHER NEEDS AT THIS TIME.
--- NOTE | 2024-12-10 08:13 | NUR ---
UR CLINICAL REVIEW: 2 MN FOR VERSALUS-PER REVIEW MEETS INPT CRITERIA FOR CVA WITH [facility] OF 3 MEDICARE INPT 12/09/24 @2132 ORDER MATCHES REG NO AUTH REQUIRED PER MEDICARE GUIDELINES AWAITING MRI AND OT EVAL TO DETERMINE FURTHER NEEDS
[2024-12-10] MEDS ORDERED: ATORVASTATIN 40 MG TAB PO SCH (09:00)
--- NOTE | 2024-12-10 09:08 | NUR ---
PATIENT IN CHAIR AT THIS TIME. HELP DESK OPERATOR CHARTED I&OS' AND RN CHARTED VITALS. PATIENT WILL TAKE SHOWER AFTER CT SCAN IS COMPLETE. CALL LIGHT WITHIN REACH, NO FURTHER NEEDS AT THIS TIME.
--- NOTE | 2024-12-10 11:19 | NUR ---
PT AMBULATES IN HALLWAY WITH PHYSICAL THERAPY.
--- NOTE | 2024-12-10 11:50 | NUR ---
PATIENT IN BED AT THIS TIME. SEED DISTRICT SALES MANAGER CHARTED BLOOD SUGAR CHECK. CALL LIGHT WITHIN REACH, NO FURTHER NEEDS AT THIS TIME.
--- NOTE | 2024-12-10 12:31 | NUR ---
VISITED DURING SPIRITUAL CARE ROUNDS. PT IN OVERALL GOOD SPIRITS; NO IMMEDIATE NEEDS. FINANCIAL SYSTEMS ADMINISTRATOR PROVIDED SUPPORTIVE PRESENCE, HOSPITALITY, PRAYER, FACILITATED INTERACTION WITH THERAPY ANIMAL.
--- NOTE | 2024-12-10 12:57 | NUR ---
ZOFRAN RECEIVED FOR REPORT OF NAUSEA, NO EMESIS AT THIS TIME.
--- NOTE | 2024-12-10 13:02 | NUR ---
NEURO CHECK COMPLETE, NO CHANGES FROM THIS AM.
--- NOTE | 2024-12-10 13:20 | NUR ---
Spoke with Cindy. She is 30 day readmit for a TIA. Pt denies issues while at home. Pt has episodes where she felt light headed at home and then while working with PT today. Pt lives in an apartment with 14 steps. She has multiple pieces of DME and has meals on wheels. She denies financial issues. At last admission, pt was discharged to [facility] rehab. On dc she was walking 500 ft. She states she was doing very well. Pt denies symptoms at this time, but is concerned she is having further strokes. Pt would like to have an MRI but cannot due to her pacemaker. is attempting to transfer pt to a hospital where she can proceed with an MRI.
--- NOTE | 2024-12-10 15:41 | NUR ---
PT SITS UP IN RECLINER, REQUESTS TYLENOL FOR LEFT HAND PAIN, RECEIVED. CALL LIGHT IN REACH, SUGAR FREE PUDDING RECEIVED REQUESTED, NO FURTHER REQUESTS AT THIS TIME.
--- NOTE | 2024-12-10 15:52 | NUR ---
DISCUSSED POC AND PENDING TRANSFER PT. PT ACCEPTED FOR TRANSFER. BELONGNINGS REMOVED FROM LOCK SYLVESTER IN ROOM, WALLET, INHALER, TWO SETS OF KEYS AND A CHECK BOOK RECEIVED BY PT.
--- NOTE | 2024-12-10 16:26 | NUR ---
TELEPHONE REPORT PROVIDED TO DMITRIY NELSON AT [facility].
--- NOTE | 2024-12-10 16:45 | NUR ---
EMS ARRIVES TO TRANSPORT PT TO [facility]. PT AMBULATES AND TRANSFERS SELF TO [facility]. SAH BAG WITH CLOTHES AND PURSE WITH WALLET, CHECK BOOK, INHALER, AND KEYS X2 RECEIVED BY EMS. PT LEAVES UNIT VIA RNEY WITH EMS.
[2024-12-11] MEDS ORDERED: ENOXAPARIN SODIUM 40 MG/0.4 ML SYR SUB-Q SCH (09:00)
== END 2024-12-10 16:45 | disposition short-term general hospital (02) | DRG 690 ==
LOC: ED 20:11 → MS 21:32
PROVIDERS: Family Medicine; ADMIT Student in an Organized Health Care Education/Training Program; ATTEND Student in an Organized Health Care Education/Training Program
DX: N39.0 Urinary tract infection, site not specified (principal); G45.9 Transient cerebral ischemic attack, unspecified; I69.351 Hemiplegia and hemiparesis following cerebral infarction affecting right dominant side; F25.9 Schizoaffective disorder, unspecified; E11.9 Type 2 diabetes mellitus without complications; I48.91 Unspecified atrial fibrillation; J45.909 Unspecified asthma, uncomplicated; Z95.0 Presence of cardiac pacemaker; Z98.84 Bariatric surgery status; Z88.2 Allergy status to sulfonamides; Z88.8 Allergy status to other drugs, medicaments and biological substances; Z79.84 Long term (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 of 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; Z79.899 Other long term (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; G47.00 Insomnia, unspecified; F31.9 Bipolar disorder, unspecified; F41.9 Anxiety disorder, unspecified; S99.922A Unspecified injury of left foot, initial encounter; I10 Essential (primary) hypertension; X58.XXXA Exposure to other specified factors, initial encounter
CPT/HCPCS: 36415; 70450; 70496; 70498; 71045; 73660; 80048; 80053; 80307; 81001; 83036; 83735; 84484; 85025; 85610; 85730; 87088; 93005; 93010; 93306; 94640; 94760; 97162; 97165; 97530; 97535; A9270; J0696; J1815; J2405; J3475; Q9967

== ENCOUNTER 2025-02-12 09:40 | Emergency (ER) | payer MEDICARE ==
[~2025-02-12] VITALS: Ht 170.2 cm; Wt 113.8 kg
[~2025-02-12 09:40] MED LIST changes: +ATORVASTATIN CA80 MG PO; +HYDROCORTISO453.6 GM TOP
[2025-02-12] MEDS ORDERED: ondansetron HCL 4 MG/2 ML VIAL IV ONE (10:00)
[2025-02-12] MEDS ORDERED: SODIUM CHLORIDE 0.9% 1,000 ML IV ONE (10:00)
[2025-02-12] MEDS ORDERED: KETOROLAC TROMETHAMINE 15 MG/ML VIAL IV ONE (10:00)
[2025-02-12 10:08] LABS: BASOPHILS 1.1 % (0-2); EOSINOPHILS 2.5 % (0-6); HEMATOCRIT 39.1 % (35.0-50.0); HEMOGLOBIN 13.1 g/dL (12.0-18.0); LYMPHOCYTES 31.7 % (24-44); MCH 26.3 (27-36); MCHC 33.5 g/dl (30-36); MCV 78.6 fl (81-99); MONOCYTES 7.7 % (0-12); PLATELET COUNT 165 K/uL (140-440); RBC 4.98 M/ul (4.3-5.7); RDW 16.2 (10.5-15.0)
[2025-02-12] MEDS ORDERED: MIRTAZAPINE30 MG PO (10:10)
[2025-02-12] MEDS ORDERED: ACETAMINOPHEN500 MG PO (10:11)
[2025-02-12] MEDS ORDERED: TUMS200 MG PO (10:12)
[2025-02-12 10:23] LABS: ALBUMIN 3.2 g/dL (3.4-5.0); ANION GAP 11.6 (7-21); BILIRUBIN, TOTAL 0.3 mg/dL (0.2-1.0); BUN/CREATININE RATIO 14.85 (6.0-28.6); CALCIUM 8.6 mg/dL (8.5-10.1); CREATININE, SERUM 1.01 mg/dL (0.55-1.02); POTASSIUM 4.6 mmol/L (3.5-5.1); PROTEIN, TOTAL 6.4 g/dL (6.4-8.2)
[2025-02-12 10:41] LABS: BILIRUBIN, URINE NEGATIVE (negative); BLOOD/HGB, URINE NEGATIVE (Negative); KETONE, URINE NEGATIVE (Negative); LEUK ESTERASE, URINE NEGATIVE (negative); NITRITE, URINE NEGATIVE (negative)
[2025-02-12] MEDS ORDERED: Insulin Regular, Human 100 UNIT/ML ML SUB-Q ONE (11:00)
[2025-02-12 12:35] VITALS: BP 160/61
== END 2025-02-12 12:35 | disposition home or self-care (01) ==
LOC: ED 09:40
PROVIDERS: Emergency Medicine
DX: E11.65 Type 2 diabetes mellitus with hyperglycemia (principal); K59.00 Constipation, unspecified; I10 Essential (primary) hypertension; K21.9 Gastro-esophageal reflux disease without esophagitis; Z88.2 Allergy status to sulfonamides; Z88.1 Allergy status to other antibiotic agents; Z88.9 Allergy status to unspecified drugs, medicaments and biological substances; Z88.0 Allergy status to penicillin; Z88.5 Allergy status to narcotic agent; Z88.3 Allergy status to other anti-infective agents
CPT/HCPCS: 36415; 74177; 80053; 81003; 83690; 85025; 96361; 96375; 99284-25; J1815; J1885; J2405; J7030; Q9967

== ENCOUNTER 2025-03-15 12:27 | Emergency (ER) | payer MEDICARE ==
[~2025-03-15] VITALS: Ht 170.2 cm; Wt 74.0 kg
[~2025-03-15 12:27] MED LIST changes: +ACETAMINOPHEN500 MG PO; +MIRTAZAPINE30 MG PO; +TUMS200 MG PO
[2025-03-15 12:38] LABS: BASOPHILS 0.6 % (0.1-1.2); EOSINOPHILS 2.6 % (0.7-5.8); HEMATOCRIT 39.2 % (34.1-44.9); HEMOGLOBIN 12.4 g/dL (11.2-15.7); LYMPHOCYTES 33.9 % (19.3-51.7); MCH 25.2 PG (25.6-32.2); MCHC 31.6 g/dL (32.2-35.5); MCV 79.5 fL (79.4-94.8); MONOCYTES 7.1 % (4.7-12.5); NEUTROPHILS 55.6 % (34.0-71.1); PLATELET COUNT 197 K/uL (182-369); RBC 4.93 M/uL (3.93-5.22)
[2025-03-15 12:59] LABS: ALBUMIN 3.3 g/dL (3.4-5.0); ALBUMIN/GLOBULIN RATIO 1.06 (1.1-2.4); ANION GAP 13.5 (7-21); BILIRUBIN, TOTAL 0.4 mg/dL (0.2-1.0); BUN/CREATININE RATIO 17.85 (6.0-28.6); CALCIUM 9.1 mg/dL (8.5-10.1); CREATININE, SERUM 0.84 mg/dL (0.55-1.02); MAGNESIUM 1.9 mg/dL (1.8-2.4); POTASSIUM 4.5 mmol/L (3.5-5.1); PROTEIN, TOTAL 6.4 g/dL (6.4-8.2)
[2025-03-15] MEDS ORDERED: Insulin Regular, Human 100 UNIT/ML ML SUB-Q ONE (13:30)
[2025-03-15] MEDS ORDERED: ondansetron HCL 4 MG/2 ML VIAL IV ONE (14:45)
[2025-03-15 18:20] VITALS: BP 169/84
--- NOTE | 2025-03-15 22:32 | EKG ---
[facility] [address] [place] [address] Signed Atrial-sensed ventricular-paced rhythm Abnormal ECG When compared with ECG of 08-DEC-2024 20:50, Vent. rate has increased BY 24 BPM Confirmed by Aleah De La Torre MD () on 03/15/2025 10:32:11 PM Electronically Signed By: ALEAH DE LA TORRE MD 03/15/252231 PATIENT NAME: BERNARDA ALARCON AIDE Electrocardiogram DATE OF : 55 PHYSICIAN: ALEAH DE LA TORRE MD REPORT #: [id number] REPORT IS CONFIDENTIAL AND NOT TO BE RELEASED WITHOUT AUTHORIZATION
--- NOTE | 2025-03-15 22:33 | EKG ---
[facility] [address] [place] [address] Signed Atrial-sensed ventricular-paced rhythm Abnormal ECG When compared with ECG of 15-MAR-2025 12:29, Vent. rate has decreased BY 13 BPM Confirmed by Aleah De La Torre MD () on 03/15/2025 10:33:17 PM Electronically Signed By: ALEAH DE LA TORRE MD 03/15/252232 PATIENT NAME: BERNARDA ALARCON AIDE Electrocardiogram DATE OF : 55 PHYSICIAN: ALEAH DE LA TORRE MD REPORT #: [id number] REPORT IS CONFIDENTIAL AND NOT TO BE RELEASED WITHOUT AUTHORIZATION
== END 2025-03-15 18:27 | disposition home or self-care (01) ==
LOC: ED 12:27
PROVIDERS: Emergency Medicine
DX: R07.2 Precordial pain (principal); I10 Essential (primary) hypertension; E11.9 Type 2 diabetes mellitus without complications; Z79.84 Long term (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 of 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; Z79.899 Other long term (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; Z88.2 Allergy status to sulfonamides; Z88.1 Allergy status to other antibiotic agents; Z88.8 Allergy status to other drugs, medicaments and biological substances
CPT/HCPCS: 36415; 71045; 80053; 83735; 84484; 85025; 93005; 93010; 96374; 99285-25; J1815; J2405

== ENCOUNTER 2025-04-16 09:31 | Emergency (ER) | payer MEDICARE ==
[~2025-04-16] VITALS: Ht 170.2 cm; Wt 114.5 kg
[2025-04-16] MEDS ORDERED: ASPIRIN 81 MG CHEW PO ONE (09:45)
[2025-04-16 09:49] LABS: BASOPHILS 0.5 % (0.1-1.2); EOSINOPHILS 3.8 % (0.7-5.8); HEMATOCRIT 39.1 % (34.1-44.9); HEMOGLOBIN 12.3 g/dL (11.2-15.7); LYMPHOCYTES 30.1 % (19.3-51.7); MCH 25.2 PG (25.6-32.2); MCHC 31.5 g/dL (32.2-35.5); MCV 80.1 fL (79.4-94.8); MONOCYTES 5.7 % (4.7-12.5); NEUTROPHILS 59.6 % (34.0-71.1); PLATELET COUNT 185 K/uL (182-369); RBC 4.88 M/uL (3.93-5.22)
[2025-04-16 10:11] LABS: ALBUMIN 3.3 g/dL (3.4-5.0); ALBUMIN/GLOBULIN RATIO 1.03 (1.1-2.4); ANION GAP 14.3 (7-21); BILIRUBIN, TOTAL 0.3 mg/dL (0.2-1.0); BUN/CREATININE RATIO 12.5 (6.0-28.6); CREATININE, SERUM 0.88 mg/dL (0.55-1.02); MAGNESIUM 1.9 mg/dL (1.8-2.4); POTASSIUM 4.3 mmol/L (3.5-5.1); PROTEIN, TOTAL 6.5 g/dL (6.4-8.2)
[2025-04-16] MEDS ORDERED: ALBUTEROL/IPRATROPIUM 3 ML NEB INH ONE (11:15)
[2025-04-16] MEDS ORDERED: ACETAMINOPHEN 325 MG TAB PO ONE (11:15)
[2025-04-16 11:42] VITALS: BP 148/78
--- NOTE | 2025-04-16 13:53 | EKG ---
[facility] [address] [facility] [place] [address] Signed Atrial-sensed ventricular-paced rhythm Abnormal ECG When compared with ECG of 20-MAR-2025 17:11, No significant change was found Confirmed by Aleah De La Torre MD () on 04/16/2025 1:53:35 PM Electronically Signed By: ALEAH DE LA TORRE MD 04/16/25 1353 PATIENT NAME: BERNARDA ALARCON AIDE Electrocardiogram DATE OF : 55 PHYSICIAN: ALEAH DE LA TORRE MD REPORT #: [id number] REPORT IS CONFIDENTIAL AND NOT TO BE RELEASED WITHOUT AUTHORIZATION
== END 2025-04-16 11:43 | disposition home or self-care (01) ==
LOC: ED 09:31
PROVIDERS: Emergency Medicine
DX: R07.89 Other chest pain (principal); E11.9 Type 2 diabetes mellitus without complications; I10 Essential (primary) hypertension; K21.9 Gastro-esophageal reflux disease without esophagitis; Z86.73 Personal history of transient ischemic attack (TIA), and cerebral infarction without residual deficits; Z88.2 Allergy status to sulfonamides; Z88.8 Allergy status to other drugs, medicaments and biological substances; Z79.82 Long term (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
CPT/HCPCS: 36415; 71045; 80053; 83735; 84484; 85025; 93005; 93010; 94640; 99285-25; A9270

== ENCOUNTER 2025-04-26 17:47 | Emergency (ER) | payer MEDICARE ==
[~2025-04-26] VITALS: Ht 170.2 cm; Wt 115.9 kg
[2025-04-26] MEDS ORDERED: ATORVASTATIN CA10 MG PO (17:57)
[2025-04-26] MEDS ORDERED: BUDESONIDE1 MG/2 ML INH (17:57)
[2025-04-26] MEDS ORDERED: ALBUTEROL/IPRATROPIUM 3 ML NEB INH ONE (18:00)
[2025-04-26 18:22] LABS: BASOPHILS 0.6 % (0.1-1.2); EOSINOPHILS 3.6 % (0.7-5.8); LYMPHOCYTES 37.5 % (19.3-51.7); MCH 25.0 PG (25.6-32.2); MCHC 31.5 g/dL (32.2-35.5); MCV 79.3 fL (79.4-94.8); MONOCYTES 6.7 % (4.7-12.5); NEUTROPHILS 51.3 % (34.0-71.1); RBC 4.64 M/uL (3.93-5.22)
[2025-04-26 18:27] LABS: ALT (SGPT) 30.0 U/L (14-59); AST (SGOT) 21.0 U/L (15-37); GLOMERULAR FILTRATION RATE,EST 62.0 mL/min (>60); PROTEIN, TOTAL 6.4 g/dL (6.4-8.2); UREA NITROGEN 14.0 mg/dL (7-18)
[2025-04-26] MEDS ORDERED: FAMOTIDINE 20 MG/ 2 ML VIAL IV ONE (19:15)
[2025-04-26] MEDS ORDERED: NITROGLYCERIN 0.4 MG SUBL SL PRN (19:15)
[2025-04-26] MEDS ORDERED: NITROGLYCERIN0.4 MG SL (20:30)
[2025-04-26 20:46] VITALS: BP 161/77
--- NOTE | 2025-04-28 07:38 | EKG ---
[facility] [address] [facility] [place] [address] Signed Atrial-sensed ventricular-paced rhythm Abnormal ECG When compared with ECG of 16-Apr-2025 09:31:55 No significant change was found Confirmed by Kurt Harrison MD ([id number]) on 04/28/2025 7:38:02 AM Electronically Signed By: KURT HARRISON MD 04/28/25 0738 PATIENT NAME: BERNARDA ALARCON AIDE Electrocardiogram DATE OF : 55 PHYSICIAN: KURT HARRISON MD REPORT #: [id number] REPORT IS CONFIDENTIAL AND NOT TO BE RELEASED WITHOUT AUTHORIZATION
== END 2025-04-26 20:48 | disposition home or self-care (01) ==
LOC: ED 17:47
PROVIDERS: Emergency Medicine
DX: I20.9 Angina pectoris, unspecified (principal); I10 Essential (primary) hypertension; K21.9 Gastro-esophageal reflux disease without esophagitis; Z86.73 Personal history of transient ischemic attack (TIA), and cerebral infarction without residual deficits; Z79.84 Long term (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 of 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; Z79.51 Long term (current) use of inhaled steroids; Z88.8 Allergy status to other drugs, medicaments and biological substances; Z88.2 Allergy status to sulfonamides; Z88.1 Allergy status to other antibiotic agents
CPT/HCPCS: 36415; 71045; 80053; 83735; 83880; 84484; 85025; 93005; 93010; 94640; 96374; 99285-25; J2405

== ENCOUNTER 2025-04-29 11:42 | Emergency (ER) | payer MEDICARE ==
[~2025-04-29] VITALS: Ht 170.2 cm; Wt 91.9 kg
[~2025-04-29 11:42] MED LIST changes: +BUDESONIDE1 MG/2 ML INH
[2025-04-29] MEDS ORDERED: DOXYCYCLINE MO100 MG PO (11:57)
[2025-04-29] MEDS ORDERED: NITROGLYCERIN 0.4 MG SUBL SL PRN (12:00)
[2025-04-29] MEDS ORDERED: ASPIRIN 81 MG CHEW PO ONE (12:00)
[2025-04-29 12:01] LABS: BASOPHILS 0.5 % (0.1-1.2); EOSINOPHILS 2.9 % (0.7-5.8); LYMPHOCYTES 30.1 % (19.3-51.7); MCH 25.3 PG (25.6-32.2); MCHC 31.8 g/dL (32.2-35.5); MCV 79.4 fL (79.4-94.8); MONOCYTES 6.2 % (4.7-12.5); NEUTROPHILS 59.7 % (34.0-71.1); RBC 4.75 M/uL (3.93-5.22)
[2025-04-29] MEDS ORDERED: OZEMPIC0.25 MG/02 (12:15)
[2025-04-29 12:26] LABS: ALT (SGPT) 30.0 U/L (14-59); AST (SGOT) 19.0 U/L (15-37); GLOMERULAR FILTRATION RATE,EST 71.0 mL/min (>60); PROTEIN, TOTAL 6.3 g/dL (6.4-8.2); UREA NITROGEN 14.0 mg/dL (7-18)
[2025-04-29 12:54] VITALS: BP 134/71
--- NOTE | 2025-04-29 22:05 | EKG ---
[facility] [address] [place] [address] Signed Atrial-sensed ventricular-paced rhythm Abnormal ECG When compared with ECG of 26-APR-2025 17:46, Vent. rate has increased BY 3 BPM Confirmed by Aleah De La Torre MD () on 04/29/2025 10:05:20 PM Electronically Signed By: ALEAH DE LA TORRE MD 04/29/252204 PATIENT NAME: BERNARDA ALARCON AIDE Electrocardiogram DATE OF : 55 PHYSICIAN: ALEAH DE LA TORRE MD REPORT #: [id number] REPORT IS CONFIDENTIAL AND NOT TO BE RELEASED WITHOUT AUTHORIZATION
--- NOTE | 2025-04-29 22:06 | EKG ---
[facility] [address] [place] [address] Signed Atrial-sensed ventricular-paced rhythm Abnormal ECG When compared with ECG of 29-APR-2025 11:38, Vent. rate has decreased BY 9 BPM No significant change was found Confirmed by Aleah De La Torre MD () on 04/29/2025 10:06:22 PM Electronically Signed By: ALEAH DE LA TORRE MD 04/29/252205 PATIENT NAME: BERNARDA ALARCON AIDE Electrocardiogram DATE OF : 55 PHYSICIAN: ALEAH DE LA TORRE MD REPORT #: [id number] REPORT IS CONFIDENTIAL AND NOT TO BE RELEASED WITHOUT AUTHORIZATION
== END 2025-04-29 12:55 | disposition home or self-care (01) ==
LOC: ED 11:42
PROVIDERS: Emergency Medicine
DX: R07.9 Chest pain, unspecified (principal); E11.9 Type 2 diabetes mellitus without complications; I10 Essential (primary) hypertension; K21.9 Gastro-esophageal reflux disease without esophagitis; I48.91 Unspecified atrial fibrillation; Z88.2 Allergy status to sulfonamides; Z88.8 Allergy status to other drugs, medicaments and biological substances; Z79.82 Long term (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
CPT/HCPCS: 36415; 71045; 80053; 83735; 84484; 85025; 93005; 93010; 99285-25

== ENCOUNTER 2025-05-09 02:33 | Emergency (ER) | payer MEDICARE ==
[~2025-05-09] VITALS: Ht 170.2 cm; Wt 115.5 kg
[~2025-05-09 02:33] MED LIST changes: +DOXYCYCLINE MO100 MG PO; +OZEMPIC0.25 MG/02
[2025-05-09] MEDS ORDERED: ENALAPRILAT DIHYDRATE 1.25 MG/ML VIAL IV ONE (02:45)
[2025-05-09 03:12] LABS: BASOPHILS 0.4 % (0.1-1.2); EOSINOPHILS 3.0 % (0.7-5.8); LYMPHOCYTES 44.1 % (19.3-51.7); MCH 25.1 PG (25.6-32.2); MCHC 31.7 g/dL (32.2-35.5); MCV 79.1 fL (79.4-94.8); MONOCYTES 7.0 % (4.7-12.5); NEUTROPHILS 45.2 % (34.0-71.1); RBC 4.70 M/uL (3.93-5.22)
[2025-05-09] MEDS ORDERED: KETOROLAC TROMETHAMINE 30 MG/ML VIAL IV ONE (03:30)
[2025-05-09 03:32] LABS: ALT (SGPT) 32.0 U/L (14-59); AST (SGOT) 21.0 U/L (15-37); GLOMERULAR FILTRATION RATE,EST 94.0 mL/min (>60); PROTEIN, TOTAL 6.4 g/dL (6.4-8.2); UREA NITROGEN 14.0 mg/dL (7-18)
[2025-05-09] MEDS ORDERED: LORazepam 2 MG/ML VIAL IV ONE (03:45)
[2025-05-09] MEDS ORDERED: ONDANSETRON ODT8 MG PO (03:55)
[2025-05-09] MEDS ORDERED: ONDANSETRON 4 MG HOME.PACK SL ONE (04:15)
[2025-05-09] MEDS ORDERED: CYCLOBENZAPRINE HCL 10 MG HOME.PACK PO ONE (04:15)
[2025-05-09] MEDS ORDERED: LORazepam 1 MG HOME.PACK PO ONE (04:45)
[2025-05-09 05:15] VITALS: BP 153/74
--- NOTE | 2025-05-09 11:38 | EKG ---
[facility] [address] [facility] [place] [address] Signed Atrial-sensed ventricular-paced rhythm Abnormal ECG When compared with ECG of 29-APR-2025 12:35, Vent. rate has decreased BY 3 BPM Confirmed by Kurt Harrison MD ([id number]) on 05/09/2025 11:38:40 AM Electronically Signed By: KURT HARRISON MD 05/09/25 1138 PATIENT NAME: BERNARDA ALARCON AIDE Electrocardiogram DATE OF : 55 PHYSICIAN: KURT HARRISON MD REPORT #: [id number] REPORT IS CONFIDENTIAL AND NOT TO BE RELEASED WITHOUT AUTHORIZATION
== END 2025-05-09 05:15 | disposition home or self-care (01) ==
LOC: ED 02:33
PROVIDERS: Family Medicine
DX: R07.89 Other chest pain (principal); R11.2 Nausea with vomiting, unspecified; I10 Essential (primary) hypertension; K21.9 Gastro-esophageal reflux disease without esophagitis; E11.9 Type 2 diabetes mellitus without complications; Z95.0 Presence of cardiac pacemaker; Z88.2 Allergy status to sulfonamides; Z88.8 Allergy status to other drugs, medicaments and biological substances; Z79.899 Other long term (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
CPT/HCPCS: 36415; 71045; 80053; 83735; 84484; 85025; 93005; 93010; 96374; 96375; 99285-25; A9270; J1885; J2060; J2405

== ENCOUNTER 2025-05-11 19:16 | Emergency (ER) | payer MEDICARE ==
[~2025-05-11] VITALS: Ht 170.2 cm; Wt 114.3 kg
[~2025-05-11 19:16] MED LIST changes: +ONDANSETRON ODT8 MG PO
[2025-05-11 20:42] VITALS: BP 137/66
== END 2025-05-11 20:44 | disposition home or self-care (01) ==
LOC: ED 19:16
DX: J06.9 Acute upper respiratory infection, unspecified (principal); I10 Essential (primary) hypertension; K21.9 Gastro-esophageal reflux disease without esophagitis; Z79.51 Long term (current) use of inhaled steroids; Z86.73 Personal history of transient ischemic attack (TIA), and cerebral infarction without residual deficits; Z79.899 Other long term (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; Z88.2 Allergy status to sulfonamides; Z88.1 Allergy status to other antibiotic agents; Z88.8 Allergy status to other drugs, medicaments and biological substances
CPT/HCPCS: 99283; U0002

== ENCOUNTER 2025-05-19 11:18 | Emergency (ER) | payer MEDICARE ==
[~2025-05-19] VITALS: Ht 170.2 cm; Wt 115.0 kg
[2025-05-19] MEDS ORDERED: MONTELUKAST SOD10 MG PO (11:36)
[2025-05-19 11:39] LABS: BASOPHILS 0.3 % (0.1-1.2); EOSINOPHILS 2.1 % (0.7-5.8); LYMPHOCYTES 28.1 % (19.3-51.7); MCH 24.9 PG (25.6-32.2); MCHC 31.6 g/dL (32.2-35.5); MCV 78.6 fL (79.4-94.8); MONOCYTES 5.4 % (4.7-12.5); NEUTROPHILS 63.6 % (34.0-71.1); RBC 5.15 M/uL (3.93-5.22)
[2025-05-19 11:57] LABS: ALT (SGPT) 38.0 U/L (14-59); AST (SGOT) 50.0 U/L (15-37); GLOMERULAR FILTRATION RATE,EST 56.0 mL/min (>60); PROTEIN, TOTAL 7.0 g/dL (6.4-8.2); UREA NITROGEN 15.0 mg/dL (7-18)
[2025-05-19] MEDS ORDERED: KETOROLAC TROMETHAMINE 15 MG/ML VIAL IV ONE (12:00)
[2025-05-19] MEDS ORDERED: ACETAMINOPHEN 500 MG TAB PO ONE (12:45)
[2025-05-19] MEDS ORDERED: predniSONE 20 MG TAB PO ONE (12:45)
[2025-05-19 13:18] VITALS: BP 132/63
--- NOTE | 2025-05-19 21:22 | EKG ---
[facility] [address] [place] [address] Signed Atrial-sensed ventricular-paced rhythm Abnormal ECG When compared with ECG of 09-MAY-2025 02:38, Vent. rate has increased BY 23 BPM Confirmed by Aleah De La Torre MD () on 05/19/2025 9:22:10 PM Electronically Signed By: ALEAH DE LA TORRE MD 05/19/252121 PATIENT NAME: BERNARDA ALARCON AIDE Electrocardiogram DATE OF : 55 PHYSICIAN: ALEAH DE LA TORRE MD REPORT #: [id number] REPORT IS CONFIDENTIAL AND NOT TO BE RELEASED WITHOUT AUTHORIZATION
== END 2025-05-19 13:18 | disposition home or self-care (01) ==
LOC: ED 11:18
PROVIDERS: Emergency Medicine
DX: J45.901 Unspecified asthma with (acute) exacerbation (principal); I10 Essential (primary) hypertension; K21.9 Gastro-esophageal reflux disease without esophagitis; I48.91 Unspecified atrial fibrillation; Z95.0 Presence of cardiac pacemaker; Z88.2 Allergy status to sulfonamides; Z88.8 Allergy status to other drugs, medicaments and biological substances; Z79.82 Long term (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
CPT/HCPCS: 36415; 71045; 80053; 84484; 85025; 93005; 93010; 96374; 99285-25; A9270; J1885; J7512

== ENCOUNTER 2025-05-27 07:38 | Emergency (ER) | payer MEDICARE ==
[~2025-05-27] VITALS: Ht 170.2 cm; Wt 115.0 kg
[~2025-05-27 07:38] MED LIST changes: +MONTELUKAST SOD10 MG PO
[2025-05-27 08:18] LABS: BLOOD/HGB, URINE NEGATIVE (Negative); KETONE, URINE NEGATIVE (Negative); LEUK ESTERASE, URINE NEGATIVE (negative); NITRITE, URINE NEGATIVE (negative)
[2025-05-27 08:28] LABS: BASOPHILS 0.4 % (0.1-1.2); EOSINOPHILS 3.4 % (0.7-5.8); LYMPHOCYTES 32.7 % (19.3-51.7); MCH 25.2 PG (25.6-32.2); MCHC 32.1 g/dL (32.2-35.5); MCV 78.6 fL (79.4-94.8); MONOCYTES 6.9 % (4.7-12.5); NEUTROPHILS 56.2 % (34.0-71.1); RBC 5.00 M/uL (3.93-5.22)
[2025-05-27 08:40] LABS: AMPHETAMINES, URINE NEGATIVE (NEGATIVE); BARBITURATES, URINE NEGATIVE (NEGATIVE); BENZODIAZEPINE, URINE NEGATIVE (NEGATIVE); CANNABINOID, URINE NEGATIVE (NEGATIVE); COCAINE, URINE NEGATIVE (NEGATIVE); ECSTASY, URINE NEGATIVE (NEGATIVE); FENTANYL, URINE NEGATIVE (NEGATIVE); METHADONE, URINE NEGATIVE (NEGATIVE); OPIATES, URINE NEGATIVE (NEGATIVE); OXYCODONE, URINE NEGATIVE (NEGATIVE); PHENCYCLIDINE, URINE NEGATIVE (NEGATIVE)
[2025-05-27 08:52] LABS: ALCOHOL, MEDICAL <3 ng/dL (<3); ALT (SGPT) 37 U/L (14-59); AST (SGOT) 21 U/L (15-37); GLOMERULAR FILTRATION RATE,EST 88 mL/min (>60); PROTEIN, TOTAL 6.5 g/dL (6.4-8.2); TSH, 3RD GENERATION 3.112 uIU/mL (0.358-3.740); UREA NITROGEN 11 mg/dL (7-18)
[2025-05-27] MEDS ORDERED: ALBUTEROL SULFATE 8 GM HOME.PACK INH ONE (09:45)
--- NOTE | 2025-05-27 14:27 | EKG ---
[facility] [address] [place] [address] Signed Atrial-sensed ventricular-paced rhythm Abnormal ECG When compared with ECG of 19-MAY-2025 11:23, Vent. rate has decreased BY 19 BPM Confirmed by Kurt Harrison MD ([id number]) on 05/27/2025 2:27:01 PM Electronically Signed By: KURT HARRISON MD 05/27/25 1427 PATIENT NAME: BERNARDA ALARCON AIDE Electrocardiogram DATE OF : 55 PHYSICIAN: KURT HARRISON MD REPORT #: [id number] REPORT IS CONFIDENTIAL AND NOT TO BE RELEASED WITHOUT AUTHORIZATION
[2025-05-27] MEDS ORDERED: INSULIN LISPRO 100 UNIT/ML ML SUB-Q SCH (16:00)
[2025-05-27] MEDS ORDERED: ONDANSETRON 4 MG TAB ODT SL ONE (18:00)
[2025-05-27] MEDS ORDERED: OLANZapine 10 MG TAB PO SCH (21:18)
[2025-05-27] MEDS ORDERED: MONTELUKAST SODIUM 10 MG TAB PO SCH (21:18)
[2025-05-27] MEDS ORDERED: PROPRANOLOL HCL 10 MG TAB PO SCH (21:18)
[2025-05-27] MEDS ORDERED: MIRTAZAPINE 30 MG TAB PO SCH (21:19)
[2025-05-27] MEDS ORDERED: ATORVASTATIN 10 MG TAB PO SCH (21:19)
[2025-05-28] MEDS ORDERED: ACETAMINOPHEN 500 MG TAB PO PRN (02:30)
[2025-05-28] MEDS ORDERED: IBUPROFEN 600 MG TAB PO PRN (02:30)
[2025-05-28 07:34] VITALS: BP 153/88
== END 2025-05-28 07:34 ==
LOC: ED 07:38
PROVIDERS: Emergency Medicine
DX: F23 Brief psychotic disorder (principal); I10 Essential (primary) hypertension; E11.9 Type 2 diabetes mellitus without complications; K21.9 Gastro-esophageal reflux disease without esophagitis; Z86.73 Personal history of transient ischemic attack (TIA), and cerebral infarction without residual deficits; Z95.0 Presence of cardiac pacemaker; Z88.2 Allergy status to sulfonamides; Z88.8 Allergy status to other drugs, medicaments and biological substances; Z79.84 Long term (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 of 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; Z79.52 Long term (current) use of systemic steroids; Z79.899 Other long term (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
CPT/HCPCS: 36415; 80053; 80307; 81003; 84443; 85025; 93005; 93010; A9270; G0480; J1815

== ENCOUNTER 2025-06-15 15:20 | Emergency (ER) | payer MEDICARE ==
[~2025-06-15] VITALS: Ht 170.2 cm; Wt 115.2 kg
[2025-06-15] MEDS ORDERED: FLONASE ALLERG9.9 ML NAS (16:44)
[2025-06-15] MEDS ORDERED: LORAZEPAM1 MG PO (16:45)
[2025-06-15] MEDS ORDERED: ONDANSETRON ODT8 MG PO (16:46)
[2025-06-15] MEDS ORDERED: MAGNESIUM CITR296 ML PO (16:46)
[2025-06-15] MEDS ORDERED: BENADRYL25 MG PO (16:47)
[2025-06-15] MEDS ORDERED: TUMS300 MG PO (16:47)
[2025-06-15 17:21] LABS: BASOPHILS 0.3 % (0.1-1.2); EOSINOPHILS 3.0 % (0.7-5.8); LYMPHOCYTES 36.5 % (19.3-51.7); MCH 25.4 PG (25.6-32.2); MCHC 31.6 g/dL (32.2-35.5); MCV 80.4 fL (79.4-94.8); MONOCYTES 7.4 % (4.7-12.5); NEUTROPHILS 52.5 % (34.0-71.1); RBC 4.65 M/uL (3.93-5.22)
[2025-06-15 17:49] LABS: ALCOHOL, MEDICAL <3 ng/dL (<3); ALT (SGPT) 37 U/L (14-59); AST (SGOT) 22 U/L (15-37); GLOMERULAR FILTRATION RATE,EST 95 mL/min (>60); PROTEIN, TOTAL 6.2 g/dL (6.4-8.2); TSH, 3RD GENERATION 2.400 uIU/mL (0.358-3.740); UREA NITROGEN 15 mg/dL (7-18)
[2025-06-15 18:57] LABS: BLOOD/HGB, URINE NEGATIVE (Negative); KETONE, URINE NEGATIVE (Negative); LEUK ESTERASE, URINE NEGATIVE (negative); NITRITE, URINE NEGATIVE (negative)
[2025-06-15 19:12] LABS: AMPHETAMINES, URINE NEGATIVE (NEGATIVE); BARBITURATES, URINE NEGATIVE (NEGATIVE); BENZODIAZEPINE, URINE NEGATIVE (NEGATIVE); CANNABINOID, URINE NEGATIVE (NEGATIVE); COCAINE, URINE NEGATIVE (NEGATIVE); ECSTASY, URINE NEGATIVE (NEGATIVE); FENTANYL, URINE NEGATIVE (NEGATIVE); METHADONE, URINE NEGATIVE (NEGATIVE); OPIATES, URINE NEGATIVE (NEGATIVE); OXYCODONE, URINE NEGATIVE (NEGATIVE); PHENCYCLIDINE, URINE NEGATIVE (NEGATIVE)
[2025-06-15] MEDS ORDERED: ONDANSETRON 4 MG TAB ODT SL ONE (19:15)
[2025-06-15 22:43] VITALS: BP 162/84
== END 2025-06-15 22:45 | disposition home or self-care (01) ==
LOC: ED 15:20
PROVIDERS: Emergency Medicine
DX: R44.1 Visual hallucinations (principal); K21.9 Gastro-esophageal reflux disease without esophagitis; E11.65 Type 2 diabetes mellitus with hyperglycemia; I25.10 Atherosclerotic heart disease of native coronary artery without angina pectoris; I48.91 Unspecified atrial fibrillation; J45.909 Unspecified asthma, uncomplicated; I11.9 Hypertensive heart disease without heart failure; Z98.84 Bariatric surgery status; Z86.73 Personal history of transient ischemic attack (TIA), and cerebral infarction without residual deficits; Z88.2 Allergy status to sulfonamides; Z88.1 Allergy status to other antibiotic agents; Z88.5 Allergy status to narcotic agent; Z88.8 Allergy status to other drugs, medicaments and biological substances; Z79.51 Long term (current) use of inhaled steroids; Z79.84 Long term (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 of 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; Z79.82 Long term (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; Z79.899 Other long term (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
CPT/HCPCS: 36415; 80053; 80307; 81003; 84443; 85025; 99284; A9270; G0480

== ENCOUNTER 2025-07-05 20:51 | Emergency (ER) | payer MEDICARE ==
[~2025-07-05] VITALS: Ht 170.2 cm; Wt 115.3 kg
[~2025-07-05 20:51] MED LIST changes: +BENADRYL25 MG PO; +FLONASE ALLERG9.9 ML NAS; +LORAZEPAM1 MG PO; +MAGNESIUM CITR296 ML PO; +TUMS300 MG PO
[2025-07-05 23:38] VITALS: BP 134/75
== END 2025-07-05 23:40 | disposition home or self-care (01) ==
LOC: ED 20:51
DX: F22 Delusional disorders (principal); F25.0 Schizoaffective disorder, bipolar type; I10 Essential (primary) hypertension; E11.9 Type 2 diabetes mellitus without complications; Z86.73 Personal history of transient ischemic attack (TIA), and cerebral infarction without residual deficits; Z95.0 Presence of cardiac pacemaker; Z88.2 Allergy status to sulfonamides; Z88.8 Allergy status to other drugs, medicaments and biological substances; Z79.82 Long term (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; Z79.84 Long term (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 of 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; Z79.899 Other long term (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
CPT/HCPCS: 80053; 80307; 84443; 85025; 99284; G0480

== ENCOUNTER 2025-07-11 14:30 | Emergency (ER) | payer MEDICARE ==
[~2025-07-11] VITALS: Ht 170.2 cm; Wt 75.0 kg
[2025-07-11 15:02] LABS: CORONAVIRUS COVID-19 AG NEGATIVE (NEGATIVE)
[2025-07-11 16:55] LABS: BASOPHILS 0.4 % (0.1-1.2); EOSINOPHILS 1.9 % (0.7-5.8); LYMPHOCYTES 33.2 % (19.3-51.7); MCH 25.2 PG (25.6-32.2); MCHC 31.7 g/dL (32.2-35.5); MCV 79.6 fL (79.4-94.8); MONOCYTES 5.6 % (4.7-12.5); NEUTROPHILS 58.6 % (34.0-71.1); RBC 4.76 M/uL (3.93-5.22)
[2025-07-11 17:12] LABS: ALT (SGPT) 28.0 U/L (14-59); AST (SGOT) 15.0 U/L (15-37); GLOMERULAR FILTRATION RATE,EST 58.0 mL/min (>60); PROTEIN, TOTAL 6.2 g/dL (6.4-8.2); UREA NITROGEN 13.0 mg/dL (7-18)
[2025-07-11] MEDS ORDERED: ONDANSETRON HCL4 MG PO (17:31)
[2025-07-11] MEDS ORDERED: IMODIUM A-D2 M2 PO (17:31)
[2025-07-11] MEDS ORDERED: LACTATED RINGER'S 1,000 ML IV ONE (18:15)
[2025-07-11 18:33] VITALS: BP 157/70
[2025-07-12] MEDS ORDERED: OLANZAPINE5 MG PO (08:45)
[2025-07-12] MEDS ORDERED: LANTUS100 UNITS/ SUB-Q (14:20)
--- NOTE | 2025-07-14 16:02 | EKG ---
[facility] [address] [place] [address] Signed Atrial-sensed ventricular-paced rhythm Abnormal ECG When compared with ECG of 09-JUN-2025 09:19, Electronic ventricular pacemaker has replaced Sinus rhythm Confirmed by Aleah De La Torre MD () on 07/14/2025 4:01:59 PM Electronically Signed By: ALEAH DE LA TORRE MD 07/14/25 1602 PATIENT NAME: BERNARDA ALARCON AIDE Electrocardiogram DATE OF : 55 PHYSICIAN: ALEAH DE LA TORRE MD REPORT #: [id number] REPORT IS CONFIDENTIAL AND NOT TO BE RELEASED WITHOUT AUTHORIZATION
== END 2025-07-11 18:50 | disposition home or self-care (01) ==
LOC: ED 14:30
PROVIDERS: Emergency Medicine
DX: R11.2 Nausea with vomiting, unspecified (principal); R19.7 Diarrhea, unspecified; R55 Syncope and collapse; K21.9 Gastro-esophageal reflux disease without esophagitis; E11.9 Type 2 diabetes mellitus without complications; I11.9 Hypertensive heart disease without heart failure; I48.91 Unspecified atrial fibrillation; J45.909 Unspecified asthma, uncomplicated; Z86.73 Personal history of transient ischemic attack (TIA), and cerebral infarction without residual deficits; Z95.0 Presence of cardiac pacemaker; Z88.2 Allergy status to sulfonamides; Z88.8 Allergy status to other drugs, medicaments and biological substances; Z88.1 Allergy status to other antibiotic agents; Z88.5 Allergy status to narcotic agent; Z79.84 Long term (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 of 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; Z79.899 Other long term (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
CPT/HCPCS: 36415; 80053; 85025; 93005; 93010; 99284; J7121

== ENCOUNTER 2025-07-12 08:32 | Emergency (ER) | payer MEDICARE ==
[~2025-07-12] VITALS: Ht 170.2 cm; Wt 75.0 kg
[~2025-07-12 08:32] MED LIST changes: +IMODIUM A-D2 M2 PO
[2025-07-12] MEDS ORDERED: OLANZAPINE5 MG PO (08:45)
[2025-07-12 09:24] LABS: BLOOD/HGB, URINE NEGATIVE (Negative); KETONE, URINE NEGATIVE (Negative); LEUK ESTERASE, URINE NEGATIVE (negative); NITRITE, URINE NEGATIVE (negative)
[2025-07-12 09:26] LABS: BASOPHILS 0.5 % (0.1-1.2); EOSINOPHILS 2.4 % (0.7-5.8); LYMPHOCYTES 21.0 % (19.3-51.7); MCH 25.5 PG (25.6-32.2); MCHC 32.0 g/dL (32.2-35.5); MCV 79.5 fL (79.4-94.8); MONOCYTES 5.5 % (4.7-12.5); NEUTROPHILS 69.9 % (34.0-71.1); RBC 4.79 M/uL (3.93-5.22)
[2025-07-12 09:39] LABS: ALCOHOL, MEDICAL <3 ng/dL (<3); ALT (SGPT) 30 U/L (14-59); AST (SGOT) 24 U/L (15-37); GLOMERULAR FILTRATION RATE,EST 86 mL/min (>60); PROTEIN, TOTAL 6.4 g/dL (6.4-8.2); TSH, 3RD GENERATION 2.511 uIU/mL (0.358-3.740); UREA NITROGEN 13 mg/dL (7-18)
[2025-07-12 09:45] LABS: AMPHETAMINES, URINE NEGATIVE (NEGATIVE); BARBITURATES, URINE NEGATIVE (NEGATIVE); BENZODIAZEPINE, URINE NEGATIVE (NEGATIVE); CANNABINOID, URINE NEGATIVE (NEGATIVE); COCAINE, URINE NEGATIVE (NEGATIVE); ECSTASY, URINE NEGATIVE (NEGATIVE); FENTANYL, URINE NEGATIVE (NEGATIVE); METHADONE, URINE NEGATIVE (NEGATIVE); OPIATES, URINE NEGATIVE (NEGATIVE); OXYCODONE, URINE NEGATIVE (NEGATIVE); PHENCYCLIDINE, URINE NEGATIVE (NEGATIVE)
[2025-07-12] MEDS ORDERED: OLANZapine 10 MG TABDIS PO ONE (11:30)
[2025-07-12] MEDS ORDERED: ACETAMINOPHEN 500 MG TAB PO PRN (13:45)
[2025-07-12] MEDS ORDERED: INSULIN LISPRO 100 UNIT/ML ML SUB-Q ONE (14:15)
[2025-07-12] MEDS ORDERED: LANTUS100 UNITS/ SUB-Q (14:20)
[2025-07-12 15:44] VITALS: BP 161/84
== END 2025-07-12 15:47 | disposition home or self-care (01) ==
LOC: ED 08:32
PROVIDERS: Emergency Medicine
DX: E11.65 Type 2 diabetes mellitus with hyperglycemia (principal); I10 Essential (primary) hypertension; K21.9 Gastro-esophageal reflux disease without esophagitis; Z86.73 Personal history of transient ischemic attack (TIA), and cerebral infarction without residual deficits; Z95.0 Presence of cardiac pacemaker; Z88.2 Allergy status to sulfonamides; Z88.8 Allergy status to other drugs, medicaments and biological substances; Z79.82 Long term (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; Z79.84 Long term (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 of 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; Z79.52 Long term (current) use of systemic steroids
CPT/HCPCS: 36415; 80053; 80307; 81003; 84443; 85025; 85060; 99284; A9270; G0480; J1815

== ENCOUNTER 2025-07-15 10:58 | Emergency (ER) | payer MEDICARE ==
[~2025-07-15] VITALS: Ht 170.2 cm; Wt 115.0 kg
[~2025-07-15 10:58] MED LIST changes: +LANTUS100 UNITS/ SUB-Q; +OLANZAPINE5 MG PO
[2025-07-15 11:54] LABS: BASOPHILS 0.4 % (0.1-1.2); EOSINOPHILS 2.6 % (0.7-5.8); LYMPHOCYTES 36.2 % (19.3-51.7); MCH 25.2 PG (25.6-32.2); MCHC 31.7 g/dL (32.2-35.5); MCV 79.6 fL (79.4-94.8); MONOCYTES 6.2 % (4.7-12.5); NEUTROPHILS 54.2 % (34.0-71.1); RBC 4.52 M/uL (3.93-5.22)
[2025-07-15 12:19] LABS: ALT (SGPT) 29 U/L (14-59); AST (SGOT) 19 U/L (15-37); GLOMERULAR FILTRATION RATE,EST 82 mL/min (>60); PROTEIN, TOTAL 6.0 g/dL (6.4-8.2); TSH, 3RD GENERATION 1.718 uIU/mL (0.358-3.740); UREA NITROGEN 14 mg/dL (7-18)
[2025-07-15 12:35] VITALS: BP 156/82
== END 2025-07-15 12:38 | disposition home or self-care (01) ==
LOC: ED 10:58
PROVIDERS: Emergency Medicine
DX: F25.0 Schizoaffective disorder, bipolar type (principal); E11.65 Type 2 diabetes mellitus with hyperglycemia; I10 Essential (primary) hypertension; K21.9 Gastro-esophageal reflux disease without esophagitis; J45.909 Unspecified asthma, uncomplicated; Z88.2 Allergy status to sulfonamides; Z88.1 Allergy status to other antibiotic agents; Z79.82 Long term (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; Z79.899 Other long term (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
CPT/HCPCS: 36415; 80053; 80307; 84443; 85025; 99284; G0480

== ENCOUNTER 2025-07-23 22:17 | Emergency (ER) | payer MEDICARE ==
[~2025-07-23] VITALS: Ht 170.2 cm; Wt 113.4 kg
[2025-07-23 22:57] LABS: BASOPHILS 0.5 % (0.1-1.2); EOSINOPHILS 3.7 % (0.7-5.8); LYMPHOCYTES 37.0 % (19.3-51.7); MCH 25.6 PG (25.6-32.2); MCHC 32.0 g/dL (32.2-35.5); MCV 80.0 fL (79.4-94.8); MONOCYTES 6.8 % (4.7-12.5); NEUTROPHILS 51.8 % (34.0-71.1); RBC 4.80 M/uL (3.93-5.22)
[2025-07-23 23:21] LABS: ALT (SGPT) 33 U/L (14-59); AST (SGOT) 23 U/L (15-37); GLOMERULAR FILTRATION RATE,EST 67 mL/min (>60); PROTEIN, TOTAL 6.6 g/dL (6.4-8.2); TSH, 3RD GENERATION 4.230 uIU/mL (0.358-3.740); UREA NITROGEN 15 mg/dL (7-18)
[2025-07-23 23:46] VITALS: BP 141/69
== END 2025-07-23 23:38 | disposition left against medical advice (07) ==
LOC: ED 22:17
PROVIDERS: Internal Medicine
DX: Z00.8 Encounter for other general examination (principal); Z53.21 Procedure and treatment not carried out due to patient leaving prior to being seen by health care provider
CPT/HCPCS: 36415; 80053; 80307; 84443; 85025; G0480

== ENCOUNTER 2025-08-03 20:21 | Emergency (ER) | payer MEDICARE ==
[~2025-08-03] VITALS: Ht 170.2 cm; Wt 113.6 kg
[2025-08-03] MEDS ORDERED: MAGNESIUM200 MG PO (20:41)
[2025-08-03] MEDS ORDERED: LANTUS100 UNITS/ SUB-Q (20:42)
[2025-08-03 22:42] LABS: BASOPHILS 0.6 % (0.1-1.2); EOSINOPHILS 3.7 % (0.7-5.8); LYMPHOCYTES 37.9 % (19.3-51.7); MCH 25.4 PG (25.6-32.2); MCHC 31.6 g/dL (32.2-35.5); MCV 80.5 fL (79.4-94.8); MONOCYTES 7.0 % (4.7-12.5); NEUTROPHILS 50.3 % (34.0-71.1); RBC 4.92 M/uL (3.93-5.22)
[2025-08-03] MEDS ORDERED: MIRTAZAPINE 15 MG TAB PO ONE (23:00)
[2025-08-03] MEDS ORDERED: OLANZapine 10 MG TAB PO ONE (23:00)
[2025-08-03 23:09] LABS: ALT (SGPT) 30 U/L (14-59); AST (SGOT) 17 U/L (15-37); GLOMERULAR FILTRATION RATE,EST 71 mL/min (>60); PROTEIN, TOTAL 6.6 g/dL (6.4-8.2); TSH, 3RD GENERATION 3.979 uIU/mL (0.358-3.740); UREA NITROGEN 16 mg/dL (7-18)
[2025-08-03 23:09] LABS: BLOOD/HGB, URINE TRACE-I (Negative); KETONE, URINE NEGATIVE (Negative); LEUK ESTERASE, URINE NEGATIVE (negative); NITRITE, URINE NEGATIVE (negative)
[2025-08-03 23:13] LABS: AMPHETAMINES, URINE NEGATIVE (NEGATIVE); BARBITURATES, URINE NEGATIVE (NEGATIVE); BENZODIAZEPINE, URINE NEGATIVE (NEGATIVE); CANNABINOID, URINE NEGATIVE (NEGATIVE); COCAINE, URINE NEGATIVE (NEGATIVE); ECSTASY, URINE NEGATIVE (NEGATIVE); FENTANYL, URINE NEGATIVE (NEGATIVE); METHADONE, URINE NEGATIVE (NEGATIVE); OPIATES, URINE NEGATIVE (NEGATIVE); OXYCODONE, URINE NEGATIVE (NEGATIVE); PHENCYCLIDINE, URINE NEGATIVE (NEGATIVE)
[2025-08-03 23:20] LABS: CRYSTALS, URINE NONE SEEN (0-1+); EPITHELIAL CELLS, URINE SQUAMOUS 1+ /lpf (0-1+)
[2025-08-03 23:21] LABS: BACTERIA, URINE RARE /hpf (negative); CASTS, URINE NONE SEEN \\lpf; REFLEX CULTURE, URINE No (No)
[2025-08-03] MEDS ORDERED: Insulin Regular, Human 100 UNIT/ML ML SUB-Q ONE (23:30)
[2025-08-04] MEDS ORDERED: ACETAMINOPHEN 500 MG TAB PO ONE (01:45)
[2025-08-04] MEDS ORDERED: INSULIN GLARGINE-YFGN 100 UNIT/ML ML SUB-Q ONE (02:15)
[2025-08-04] MEDS ORDERED: LORazepam 1 MG TAB PO ONE (04:45)
[2025-08-04] MEDS ORDERED: ALBUTEROL SULFATE 8 GM HOME.PACK INH PRN (07:45)
[2025-08-04] MEDS ORDERED: PROPRANOLOL HCL 10 MG TAB PO SCH (10:59)
[2025-08-04] MEDS ORDERED: ASPIRIN 81 MG CHEW PO SCH (11:04)
[2025-08-04] MEDS ORDERED: PANTOPRAZOLE SODIUM 40 MG TABEC PO SCH (11:05)
[2025-08-04] MEDS ORDERED: LORazepam 1 MG TAB PO PRN (14:45)
[2025-08-04 15:01] LABS: CORONAVIRUS COVID-19 AG NEGATIVE (NEGATIVE)
[2025-08-04] MEDS ORDERED: ATORVASTATIN 10 MG TAB PO ONE (21:00)
[2025-08-04] MEDS ORDERED: OLANZapine 10 MG TAB PO SCH (21:00)
[2025-08-04] MEDS ORDERED: IBLOOD GLUCOSE TEST STRIP 1 EA TEST VI SCH (21:00)
[2025-08-04] MEDS ORDERED: INSULIN GLARGINE-YFGN 100 UNIT/ML ML SUB-Q SCH (21:00)
[2025-08-04] MEDS ORDERED: MIRTAZAPINE 30 MG TAB PO SCH (21:00)
[2025-08-04] MEDS ORDERED: PROPRANOLOL HCL 10 MG TAB PO ONE (21:00)
[2025-08-04] MEDS ORDERED: MONTELUKAST SODIUM 10 MG TAB PO ONE (23:45)
[2025-08-05] MEDS ORDERED: LORazepam 1 MG TAB PO ONE (01:00)
[2025-08-05 07:56] VITALS: BP 161/80
--- NOTE | 2025-08-05 13:46 | EKG ---
[facility] [address] [place] [address] Signed Atrial-sensed ventricular-paced rhythm Abnormal ECG When compared with ECG of 11-JUL-2025 14:48, Vent. rate has decreased BY 10 BPM Confirmed by Richard Blount DO ([id number]) on 08/05/2025 1:46:21 PM Electronically Signed By: RICHARD BLOUNT DO 08/05/25 1346 PATIENT NAME: JONN ALARCONMALLORIE NOBLE Electrocardiogram DATE OF : 55 PHYSICIAN: RICHARD BLOUNT DO REPORT #: [id number] REPORT IS CONFIDENTIAL AND NOT TO BE RELEASED WITHOUT AUTHORIZATION
== END 2025-08-05 07:59 ==
LOC: ED 20:21
PROVIDERS: Emergency Medicine; Internal Medicine
DX: F29 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ogical condition (principal); E11.65 Type 2 diabetes mellitus with hyperglycemia; I11.9 Hypertensive heart disease without heart failure; I48.91 Unspecified atrial fibrillation; I69.351 Hemiplegia and hemiparesis following cerebral infarction affecting right dominant side; J45.909 Unspecified asthma, uncomplicated; K21.9 Gastro-esophageal reflux disease without esophagitis; Z95.0 Presence of cardiac pacemaker; Z88.2 Allergy status to sulfonamides; Z88.1 Allergy status to other antibiotic agents; Z88.5 Allergy status to narcotic agent; Z88.8 Allergy status to other drugs, medicaments and biological substances; Z79.4 Long term (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; Z79.51 Long term (current) use of inhaled steroids; Z79.899 Other long term (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
CPT/HCPCS: 36415; 80053; 80307; 81001; 84443; 85025; 93005; 93010; 99285; A9270; A9270-GY; G0480; J1815

== ENCOUNTER 2025-09-03 09:25 | Emergency (ER) | payer MEDICARE ==
[~2025-09-03] VITALS: Ht 172.7 cm; Wt 122.8 kg
[~2025-09-03 09:25] MED LIST changes: +MAGNESIUM200 MG PO
[2025-09-03] MEDS ORDERED: ALBUTEROL/IPRATROPIUM 3 ML NEB INH PRN (10:00)
[2025-09-03 11:09] LABS: ALT (SGPT) 24.0 U/L (14-59); AST (SGOT) 21.0 U/L (15-37); GLOMERULAR FILTRATION RATE,EST 99.0 mL/min (>60); PROTEIN, TOTAL 6.0 g/dL (6.4-8.2); UREA NITROGEN 12.0 mg/dL (7-18)
[2025-09-03 11:12] LABS: BASOPHILS 0.5 % (0.1-1.2); EOSINOPHILS 3.7 % (0.7-5.8); LYMPHOCYTES 27.8 % (19.3-51.7); MCH 25.2 PG (25.6-32.2); MCHC 30.8 g/dL (32.2-35.5); MCV 81.7 fL (79.4-94.8); MONOCYTES 6.7 % (4.7-12.5); NEUTROPHILS 60.4 % (34.0-71.1); RBC 4.21 M/uL (3.93-5.22)
[2025-09-03 12:15] VITALS: BP 159/71
--- NOTE | 2025-09-04 17:50 | EKG ---
[facility] [address] [facility] [place] [address] Signed Atrial-sensed ventricular-paced rhythm Abnormal ECG When compared with ECG of 03-AUG-2025 22:37, Vent. rate has decreased BY 19 BPM Confirmed by Richard Blount DO ([id number]) on 09/04/2025 5:50:21 PM Electronically Signed By: RICHARD BLOUNT DO 09/04/25 175 PATIENT NAME: JENNIJONN BRADLEYMALLORIE NOBLE Electrocardiogram DATE OF : 55 PHYSICIAN: RICHARD BLOUNT DO REPORT #: [id number] REPORT IS CONFIDENTIAL AND NOT TO BE RELEASED WITHOUT AUTHORIZATION
== END 2025-09-03 12:19 | disposition home or self-care (01) ==
LOC: ED 09:25
PROVIDERS: Emergency Medicine
DX: R06.02 Shortness of breath (principal); I10 Essential (primary) hypertension; K21.9 Gastro-esophageal reflux disease without esophagitis; E11.9 Type 2 diabetes mellitus without complications; J45.909 Unspecified asthma, uncomplicated; Z79.84 Long term (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 of 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; Z79.51 Long term (current) use of inhaled steroids; Z79.82 Long term (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; Z79.4 Long term (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; Z79.899 Other long term (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; Z88.2 Allergy status to sulfonamides; Z88.1 Allergy status to other antibiotic agents; Z88.8 Allergy status to other drugs, medicaments and biological substances
CPT/HCPCS: 36415; 71045; 80053; 82140; 83735; 83880; 84484; 85025; 93005; 93010; 94640; 99285-25

== ENCOUNTER 2025-09-10 14:10 | Emergency (ER) | payer MEDICARE ==
[~2025-09-10] VITALS: Ht 172.7 cm; Wt 121.5 kg
[2025-09-10] MEDS ORDERED: ALBUTEROL/IPRATROPIUM 3 ML NEB INH PRN (14:15)
[2025-09-10 14:39] LABS: BASOPHILS 0.4 % (0.1-1.2); EOSINOPHILS 3.8 % (0.7-5.8); LYMPHOCYTES 31.2 % (19.3-51.7); MCH 24.7 PG (25.6-32.2); MCHC 30.8 g/dL (32.2-35.5); MCV 80.2 fL (79.4-94.8); MONOCYTES 6.9 % (4.7-12.5); NEUTROPHILS 57.3 % (34.0-71.1); RBC 4.25 M/uL (3.93-5.22)
[2025-09-10] MEDS ORDERED: HYDROCHLOROTH12.5 M1 PO (14:40)
[2025-09-10] MEDS ORDERED: HUMALOG100 UNITS/ SUB-Q (14:40)
[2025-09-10 15:02] LABS: ALT (SGPT) 20.0 U/L (14-59); AST (SGOT) 16.0 U/L (15-37); GLOMERULAR FILTRATION RATE,EST 87.0 mL/min (>60); PROTEIN, TOTAL 6.3 g/dL (6.4-8.2); UREA NITROGEN 12.0 mg/dL (7-18)
[2025-09-10] MEDS ORDERED: POTASSIUM CHLO20 ME2 PO (15:54)
[2025-09-10] MEDS ORDERED: MAGNESIUM400 M1 PO (15:54)
[2025-09-10] MEDS ORDERED: POTASSIUM CHLORIDE 10 MEQ TABCR PO ONE (16:00)
[2025-09-10] MEDS ORDERED: MAGNESIUM SULFATE 2 GM/50 ML BAG IV ONE (16:00)
[2025-09-10] MEDS ORDERED: FUROSEMIDE 40 MG/4 ML VIAL IV ONE (16:00)
[2025-09-10 17:28] VITALS: BP 139/75
--- NOTE | 2025-09-10 19:18 | EKG ---
[facility] [address] [place] [address] Signed Atrial-sensed ventricular-paced rhythm Abnormal ECG When compared with ECG of 03-SEP-2025 10:20, No significant change was found Confirmed by Aleah De La Torre MD () on 09/10/2025 7:18:46 PM Electronically Signed By: ALEAH DE LA TORRE MD 09/10/251917 PATIENT NAME: BERNARDA ALARCON AIDE Electrocardiogram DATE OF : 55 PHYSICIAN: ALEAH DE LA TORRE MD REPORT #: [id number] REPORT IS CONFIDENTIAL AND NOT TO BE RELEASED WITHOUT AUTHORIZATION
== END 2025-09-10 17:29 | disposition home or self-care (01) ==
LOC: ED 14:10
PROVIDERS: Emergency Medicine
DX: J45.909 Unspecified asthma, uncomplicated (principal); I11.0 Hypertensive heart disease with heart failure; I50.9 Heart failure, unspecified; E87.6 Hypokalemia; E83.42 Hypomagnesemia; K21.9 Gastro-esophageal reflux disease without esophagitis; Z86.73 Personal history of transient ischemic attack (TIA), and cerebral infarction without residual deficits; Z79.4 Long term (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; Z79.51 Long term (current) use of inhaled steroids; Z79.899 Other long term (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; Z79.82 Long term (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; Z88.1 Allergy status to other antibiotic agents; Z88.2 Allergy status to sulfonamides; Z88.8 Allergy status to other drugs, medicaments and biological substances
CPT/HCPCS: 36415; 71045; 80053; 83735; 83880; 84484; 85025; 93005; 93010; 94640; 96365; 96375; 99285-25; A9270; J1938; J3475

== ENCOUNTER 2025-09-23 16:59 | Emergency (ER) | payer MEDICARE ==
[~2025-09-23] VITALS: Ht 172.7 cm; Wt 121.5 kg
--- NOTE | ~2025-09-23 | EKG ---
[facility] [address] [facility] [place], [place] [address] Draft EKG completed, results pending confirmation PATIENT NAME: BERNARDA ALARCON AIDE Electrocardiogram DATE OF : 55 PHYSICIAN: PRELIMINARY REPORT #: [id number] REPORT IS CONFIDENTIAL AND NOT TO BE RELEASED WITHOUT AUTHORIZATION
[~2025-09-23 16:59] MED LIST changes: +HUMALOG100 UNITS/ SUB-Q; +HYDROCHLOROTH12.5 M1 PO; +MAGNESIUM400 M1 PO; +POTASSIUM CHLO20 ME2 PO
[2025-09-23] MEDS ORDERED: HYDROCHLOROTHIA25 MG (17:12)
[2025-09-23 17:13] LABS: BASOPHILS 0.4 % (0.1-1.2); EOSINOPHILS 3.0 % (0.7-5.8); LYMPHOCYTES 31.1 % (19.3-51.7); MCH 24.2 PG (25.6-32.2); MCHC 30.9 g/dL (32.2-35.5); MCV 78.3 fL (79.4-94.8); MONOCYTES 6.8 % (4.7-12.5); NEUTROPHILS 58.6 % (34.0-71.1); RBC 4.51 M/uL (3.93-5.22)
[2025-09-23 17:47] LABS: ALT (SGPT) 21.0 U/L (14-59); AST (SGOT) 18.0 U/L (15-37); GLOMERULAR FILTRATION RATE,EST 80.0 mL/min (>60); PROTEIN, TOTAL 6.6 g/dL (6.4-8.2); UREA NITROGEN 14.0 mg/dL (7-18)
[2025-09-23 19:09] VITALS: BP 159/77
== END 2025-09-23 19:05 | disposition home or self-care (01) ==
LOC: ED 16:59
PROVIDERS: Emergency Medicine
DX: R07.89 Other chest pain (principal); I10 Essential (primary) hypertension; E11.9 Type 2 diabetes mellitus without complications; J45.909 Unspecified asthma, uncomplicated; Z88.2 Allergy status to sulfonamides; Z88.8 Allergy status to other drugs, medicaments and biological substances
CPT/HCPCS: 36415; 71045; 80053; 83735; 84484; 85025; 93005; 93010; 99285-25

== ENCOUNTER 2025-09-29 11:25 | Emergency (ER) | payer OTHER, MEDICARE ==
[~2025-09-29] VITALS: Ht 172.7 cm; Wt 121.5 kg
[~2025-09-29 11:25] MED LIST changes: +HYDROCHLOROTHIA25 MG
[2025-09-29] MEDS ORDERED: ACETAMINOPHEN 500 MG TAB PO ONE (14:00)
[2025-09-29 15:02] VITALS: BP 133/54
== END 2025-09-29 15:04 | disposition home or self-care (01) ==
LOC: ED 11:25
DX: M25.561 Pain in right knee (principal); M25.562 Pain in left knee; I10 Essential (primary) hypertension; K21.9 Gastro-esophageal reflux disease without esophagitis; E11.9 Type 2 diabetes mellitus without complications; J45.909 Unspecified asthma, uncomplicated; I48.91 Unspecified atrial fibrillation; Z88.2 Allergy status to sulfonamides; Z88.8 Allergy status to other drugs, medicaments and biological substances; Z79.82 Long term (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; Z79.899 Other long term (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; W01.0XXA Fall on same level from slipping, tripping and stumbling without subsequent striking against object, initial encounter; Y92.002 Bathroom of unspecified non-institutional (private) residence as the place of occurrence of the external cause
CPT/HCPCS: 70450; 73560; 99284-25; A9270

== ENCOUNTER 2025-10-16 11:49 | Emergency (ER) | payer MEDICARE ==
[~2025-10-16] VITALS: Ht 172.7 cm; Wt 118.0 kg
[2025-10-16] MEDS ORDERED: CARBAMAZEPINE100 M2 PO (12:41)
[2025-10-16] MEDS ORDERED: OLANZapine 10 MG TAB PO ONE (13:30)
[2025-10-16 13:55] VITALS: BP 165/89
[2025-10-30] MEDS ORDERED: PAROXETINE HCL20 MG PO (11:34)
== END 2025-10-16 13:56 | disposition home or self-care (01) ==
LOC: ED 11:49
DX: R44.1 Visual hallucinations (principal); I10 Essential (primary) hypertension; K21.9 Gastro-esophageal reflux disease without esophagitis; I48.91 Unspecified atrial fibrillation; Z88.1 Allergy status to other antibiotic agents; Z88.2 Allergy status to sulfonamides; Z88.8 Allergy status to other drugs, medicaments and biological substances; Z79.82 Long term (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; Z79.899 Other long term (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
CPT/HCPCS: 99284; A9270

== ENCOUNTER 2025-10-21 11:43 | Emergency (ER) | payer MEDICARE ==
[~2025-10-21] VITALS: Ht 172.7 cm; Wt 117.0 kg
[~2025-10-21 11:43] MED LIST changes: +CARBAMAZEPINE100 M2 PO
[2025-10-21 12:50] LABS: BASOPHILS 0.9 % (0.1-1.2); EOSINOPHILS 1.7 % (0.7-5.8); LYMPHOCYTES 22.9 % (19.3-51.7); MCH 24.0 PG (25.6-32.2); MCHC 31.3 g/dL (32.2-35.5); MCV 76.6 fL (79.4-94.8); MONOCYTES 5.7 % (4.7-12.5); NEUTROPHILS 68.5 % (34.0-71.1); RBC 5.38 M/uL (3.93-5.22)
[2025-10-21 12:53] LABS: BLOOD/HGB, URINE NEGATIVE (Negative); KETONE, URINE NEGATIVE (Negative); LEUK ESTERASE, URINE NEGATIVE (negative); NITRITE, URINE NEGATIVE (negative)
[2025-10-21] MEDS ORDERED: OLANZAPINE5 MG PO (13:06)
[2025-10-21 13:08] LABS: AMPHETAMINES, URINE NEGATIVE (NEGATIVE); BARBITURATES, URINE NEGATIVE (NEGATIVE); BENZODIAZEPINE, URINE NEGATIVE (NEGATIVE); CANNABINOID, URINE NEGATIVE (NEGATIVE); COCAINE, URINE NEGATIVE (NEGATIVE); ECSTASY, URINE NEGATIVE (NEGATIVE); FENTANYL, URINE NEGATIVE (NEGATIVE); METHADONE, URINE NEGATIVE (NEGATIVE); OPIATES, URINE NEGATIVE (NEGATIVE); OXYCODONE, URINE NEGATIVE (NEGATIVE); PHENCYCLIDINE, URINE NEGATIVE (NEGATIVE)
[2025-10-21 13:21] LABS: ALCOHOL, MEDICAL <3 mg/dL (<3); ALT (SGPT) 30 U/L (14-59); AST (SGOT) 22 U/L (15-37); GLOMERULAR FILTRATION RATE,EST 55 mL/min (>60); PROTEIN, TOTAL 7.4 g/dL (6.4-8.2); TSH, 3RD GENERATION 1.751 uIU/mL (0.358-3.740); UREA NITROGEN 16 mg/dL (7-18)
[2025-10-21] MEDS ORDERED: INSULIN GLARGINE-YFGN 100 UNIT/ML ML SUB-Q ONE (14:30)
[2025-10-21] MEDS ORDERED: OLANZapine 10 MG TAB PO PRN (14:30)
[2025-10-21] MEDS ORDERED: ALBUTEROL/IPRATROPIUM 3 ML NEB INH PRN (14:45)
[2025-10-21] MEDS ORDERED: MIRTAZAPINE 30 MG TAB PO PRN (14:45)
[2025-10-21] MEDS ORDERED: MAGNESIUM OXIDE 400 MG TABLET PO ONE (14:45)
[2025-10-21] MEDS ORDERED: ALBUTEROL SULFATE 8 GM HOME.PACK INH PRN (14:45)
[2025-10-21] MEDS ORDERED: ED PATIENT'S OWN MED POCKET #1 XX PRN (15:15)
[2025-10-21] MEDS ORDERED: MONTELUKAST SODIUM 10 MG TAB PO SCH (21:00)
[2025-10-21] MEDS ORDERED: PROPRANOLOL HCL 10 MG TAB PO SCH (21:00)
[2025-10-21] MEDS ORDERED: ATORVASTATIN 10 MG TAB PO SCH (21:00)
[2025-10-21] MEDS ORDERED: OLANZapine 10 MG TABDIS PO SCH (21:00)
[2025-10-21] MEDS ORDERED: carBAMazepine 200 MG TAB PO SCH (21:00)
[2025-10-21] MEDS ORDERED: PANTOPRAZOLE SODIUM 40 MG TABEC PO SCH (21:00)
[2025-10-21] MEDS ORDERED: INSULIN LISPRO 100 UNIT/ML ML SUB-Q ONE (22:30)
[2025-10-22] MEDS ORDERED: Insulin Regular, Human 100 UNIT/ML ML SUB-Q SCH (07:00)
[2025-10-22] MEDS ORDERED: ACETAMINOPHEN 325 MG TAB ONE (07:55)
[2025-10-22] MEDS ORDERED: ACETAMINOPHEN 325 MG TAB PO PRN (08:00)
[2025-10-22] MEDS ORDERED: hydroCHLOROthiazide 25 MG TAB PO SCH (09:00)
[2025-10-22] MEDS ORDERED: MAGNESIUM OXIDE 400 MG TABLET PO SCH (09:00)
[2025-10-22] MEDS ORDERED: ATORVASTATIN 10 MG TAB PO SCH (09:00)
[2025-10-22 13:11] LABS: CORONAVIRUS COVID-19 AG NEGATIVE (NEGATIVE)
[2025-10-22] MEDS ORDERED: ONDANSETRON 4 MG TAB ODT SL ONE (15:30)
[2025-10-22] MEDS ORDERED: ASPIRIN 81 MG CHEW PO SCH (16:50)
[2025-10-22] MEDS ORDERED: MIRTAZAPINE 15 MG TAB PO PRN (17:00)
[2025-10-22 20:45] VITALS: BP 148/88
[2025-10-30] MEDS ORDERED: PAROXETINE HCL20 MG PO (11:34)
== END 2025-10-22 20:45 | disposition home or self-care (01) ==
LOC: ED 11:43
PROVIDERS: Emergency Medicine
DX: F20.9 Schizophrenia, unspecified (principal); F22 Delusional disorders; R44.1 Visual hallucinations; R44.0 Auditory hallucinations; I10 Essential (primary) hypertension; K21.9 Gastro-esophageal reflux disease without esophagitis; J45.909 Unspecified asthma, uncomplicated; Z86.73 Personal history of transient ischemic attack (TIA), and cerebral infarction without residual deficits; Z79.51 Long term (current) use of inhaled steroids; Z79.82 Long term (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; Z79.4 Long term (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; Z79.899 Other long term (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; Z88.2 Allergy status to sulfonamides; Z88.1 Allergy status to other antibiotic agents; Z88.8 Allergy status to other drugs, medicaments and biological substances
CPT/HCPCS: 36415; 80053; 80307; 81003; 84443; 85025; 87502; 99284; A9270; G0480; J1815; U0002